=== PATIENT | male | born 1945 | race Hispanic/Latino ===

== ENCOUNTER 2017-11-11 11:43 | Emergency (ER) | payer OTHER, BC ==
--- NOTE | 2017-11-11 12:38 | RAD REPORT ---
EXAM DESCRIPTION: CT - Head Brain Wo Cont - 11/11/2017 12:30 pm CLINICAL HISTORY: Altered consciousness, abnormal gait, hallucinations. COMPARISON: None. TECHNIQUE: All CT scans are performed using dose optimization technique as appropriate and may inclu de automated exposure control or mA/KV adjustment according to patient size. FINDINGS: No intracranial hemorrhage, hydrocephalus or extra-axial fluid collection.No areas of brai n edema or evidence of midline shift. The paranasal sinuses and mastoids are clear. The calvarium is intact. IMPRESSION: No acute intracranial abnormality.
--- NOTE | 2017-11-11 12:59 | RAD REPORT ---
EXAM DESCRIPTION: RAD - Chest Single View - 11/11/2017 12:52 pm CLINICAL HISTORY: Diabetes, hypertension, CHF COMPARISON: 06/07/2017 FINDINGS: Portable technique limits examination quality. The lungs are grossly clear. Moderate cardiomegaly is noted. No displaced fractures.Aortic atheroscle rosis. IMPRESSION: Mild to moderate cardiomegaly.
--- NOTE | 2017-11-11 13:36 | ER ---
Nurse's Notes [facility] Name: Guzman Mayers Age: 72 yrs Sex: Male : 1945 Arrival Date: 11/11/2017 Time: 11:48 Bed 19 Private MD: Diagnosis: Adverse effect of antiviral drugs Presentation: 11/11 11:50 Presenting complaint: EMS states: from dialysis center, pt was complaining of abnormal hj gait, confusion and hallucination, per pt, he started taking Valtrex that causes him to see small people crawling on his arms, he also was started with gabapentin; BP- 180/110; negative for strike symptoms; BGL- 203;. Transition of care: patient was not received from another setting of care. Onset of symptoms was November 11, 2017. Risk Assessment: Do you want to hurt yourself or someone else? Patient reports no desire to harm self or others. Initial Sepsis Screen: Does the patient meet any 2 criteria? Altered Mental Status. Does the patient have a suspected source of infection? No. Patient's initial sepsis screen is negative. Care prior to arrival: None. 11:50 Method Of Arrival: EMS: [facility] 11:50 Acuity: CHICHO 3 hj Triage Assessment: 12:00 General: Appears in no apparent distress. uncomfortable, Behavior is calm, cooperative, hj appropriate for age. Pain: Complains of pain in skin of chest and back (shingles). EENT: No signs and/or symptoms were reported regarding the EENT system. Neuro: Level of Consciousness is awake, alert, obeys commands, Oriented to person, place, time, situation, Appropriate for age. Cardiovascular: Reports Denies chest pain, Capillary refill < 3 seconds Patient's skin is warm and dry. Respiratory: Airway is patent Respiratory effort is even, unlabored, Respiratory pattern is regular, symmetrical. GI: No signs and/or symptoms were reported involving the gastrointestinal system. : No signs and/or symptoms were reported regarding the genitourinary system. Derm: No signs and/or symptoms reported regarding the dermatologic system. Musculoskeletal: No signs and/or symptoms reported regarding the musculoskeletal system. Historical: - Allergies: 12:00 Codeine; hj - Home Meds: 12:00 aspirin 81 mg Oral chew 1 tab once daily [Active]; atorvastatin 40 mg Oral tab 1 tab hj once daily [Active]; bumetanide 2 mg Oral tab 2 tab once daily [Active]; carvedilol 25 mg Oral tab 1 tab 2 times per day [Active]; cefuroxime axetil 250 mg Oral tab 1 tab 2 times per day [Active]; Centrum Silver 400-250 mcg Oral chew daily [Active]; ferrous sulfate 325 mg (65 mg iron) Oral TbEC three times a day [Active]; glipizide 5 mg Oral tab 1 tab once daily [Active]; hydralazine 100 mg Oral tab 1 tab 2 times per day [Active]; isosorbide mononitrate 30 mg Oral Tb24 1 tab once daily [Active]; Lantus 100 unit/mL Sub-Q soln 80 unit daily [Active]; metolazone 2.5 mg Oral tab 1 tab once daily [Active]; montelukast 10 mg Oral tab 1 tab once daily [Active]; PreserVision AREDS 14,320-226-200 [id number]-[id number]-anos Oral cap [Active]; spironolactone 25 mg Oral tab 1 tab once daily [Active]; gabapentin oral oral [Active]; Valtrex Oral [Active]; - PMHx: 12:00 CHF; CKD; Diabetes - IDDM; Dialysis; High Cholesterol; HTN; Hypertension; hj - PSHx: 12:00 [facility] dialysis access; hj - Immunization history:: Adult Immunizations up to date. - Social history:: Smoking status: Patient/guardian denies using tobacco, Patient/guardian denies using alcohol. - Ebola Screening: : Patient negative for fever greater than or equal to 101.5 degrees Fahrenheit, and additional compatible Ebola Virus Disease symptoms Patient denies exposure to infectious person Patient denies travel to an Ebola-affected area in the 21 days before illness onset. Screenin:02 Abuse screen: Denies threats or abuse. Denies injuries from another. Nutritional hj screening: No deficits noted. Tuberculosis screening: No symptoms or risk factors identified. Fall Risk Secondary diagnosis (15 points). Assessment: 12:04 Reassessment: see triage assessment;. hj 13:14 Reassessment: Patient and/or family updated on plan of care and expected duration. Pain hj level reassessed. Patient is alert, oriented x 3, equal unlabored respirations, skin warm/dry/pink. Patient states feeling better. 14:27 Reassessment: Patient and/or family updated on plan of care and expected duration. Pain hj level reassessed. Patient is alert, oriented x 3, equal unlabored respirations, skin warm/dry/pink. taxi service called for pt transport to dialysis center; ETA 30 mins;. Vital Signs: 12:02 BP 189 / 77; Pulse 77; Resp 18; Temp 98.1(TE); Pulse Ox 98% on R/A; Weight 94.8 kg; hj Height 5 ft. 10 in. (177.80 cm); Pain 0/10; 13:14 BP 175 / 80; Pulse 75; Resp 18; Pulse Ox 100% on R/A; hj 12:02 Body Mass Index 29.99 (94.80 kg, 177.80 cm) hj ED Course: 11:48 Patient arrived in ED. hj 11:52 Triage completed. hj 11:54 Page Trujillo FNP-C [facility]. snw 11:[address] MD is Attending Physician. snw 12:01 Arm band placed on left wrist. hj 12:02 Patient has correct armband on for positive identification. Bed in low position. Call hj light in reach. Side rails up X2. 12:05 Jimmie Germain, GILSON is Primary Nurse. hj 12:30 CT Head Brain wo Cont In Process Unspecified. EDMS 12:38 EKG done, by senior technical specialist. reviewed by Page ARECHIGA. at1 12:51 X-ray completed. Portable x-ray completed in exam room. Patient tolerated procedure jb2 well. 12:52 Chest Single View XRAY In Process Unspecified. EDMS 13:31 Eliecer Brandon MD is Referral Physician. snw 14:42 No provider procedures requiring assistance completed. Patient did not have IV access hj during this emergency room visit. Administered Medications: No medications were administered Outcome: 13:35 Discharge ordered by . snw 14:42 Discharged to home ambulatory. hj 14:42 Condition: stable 14:42 Discharge instructions given to patient, Instructed on discharge instructions, follow up and referral plans. Demonstrated understanding of instructions, follow-up care. 14:43 Patient left the ED. hj Signatures: Dispatcher [employer] EDMS Page Trujillo FNP-C FNP-Csnw Orlando Dominguez jb2 Juana willis, academic program specialist EKG Tat1 Jimmie Germain, RN RN hj
--- NOTE | 2017-11-11 13:36 | EDPHYS ---
Physician Documentation [facility] Name: Guzman Mayers Age: 72 yrs Sex: Male : 1945 Arrival Date: 11/11/2017 Time: 11:48 Bed 19 Private MD: ED Physician Hero Lane HPI: 11/11 12:32 This 72 yrs old Male presents to ER via EMS with complaints of abnormal gait, snw confusion, hallucination. 12:32 Onset: The symptoms/episode began/occurred suddenly. Associated signs and symptoms: snw Pertinent positives: fatigue, lightheadedness. Modifying factors: The patient symptoms are alleviated by nothing. The patient has not experienced similar symptoms in the past. The patient has been recently seen by a physician: the patient's primary care provider, with different complaint(s), and apparently was diagnosed with Shingles - pt rx with Valtrex and Gabapentin. Pt states he started having visual hallucinations, tried to dc Gabapentin. Took Valtrex eight hours later and saw "little bitty people" again. Historical: - Allergies: 12:00 Codeine; hj - Home Meds: 12:00 aspirin 81 mg Oral chew 1 tab once daily [Active]; atorvastatin 40 mg Oral tab 1 tab hj once daily [Active]; bumetanide 2 mg Oral tab 2 tab once daily [Active]; carvedilol 25 mg Oral tab 1 tab 2 times per day [Active]; cefuroxime axetil 250 mg Oral tab 1 tab 2 times per day [Active]; Centrum Silver 400-250 mcg Oral chew daily [Active]; ferrous sulfate 325 mg (65 mg iron) Oral TbEC three times a day [Active]; glipizide 5 mg Oral tab 1 tab once daily [Active]; hydralazine 100 mg Oral tab 1 tab 2 times per day [Active]; isosorbide mononitrate 30 mg Oral Tb24 1 tab once daily [Active]; Lantus 100 unit/mL Sub-Q soln 80 unit daily [Active]; metolazone 2.5 mg Oral tab 1 tab once daily [Active]; montelukast 10 mg Oral tab 1 tab once daily [Active]; PreserVision AREDS 14,320-226-200 exjx-wu-ugps Oral cap [Active]; spironolactone 25 mg Oral tab 1 tab once daily [Active]; gabapentin oral oral [Active]; Valtrex Oral [Active]; - PMHx: 12:00 CHF; CKD; Diabetes - IDDM; Dialysis; High Cholesterol; HTN; Hypertension; hj - PSHx: 12:00 [facility] dialysis access; hj - Immunization history:: Adult Immunizations up to date. - Social history:: Smoking status: Patient/guardian denies using tobacco, Patient/guardian denies using alcohol. - Ebola Screening: : Patient negative for fever greater than or equal to 101.5 degrees Fahrenheit, and additional compatible Ebola Virus Disease symptoms Patient denies exposure to infectious person Patient denies travel to an Ebola-affected area in the 21 days before illness onset. ROS: 12:31 Constitutional: Negative for fever, chills, and weight loss, Eyes: Negative for injury, snw pain, redness, and discharge, ENT: Negative for injury, pain, and discharge, Neck: Negative for injury, pain, and swelling, Cardiovascular: Negative for chest pain, palpitations, and edema, Respiratory: Negative for shortness of breath, cough, wheezing, and pleuritic chest pain, Abdomen/GI: Negative for abdominal pain, nausea, vomiting, diarrhea, and constipation, Back: Negative for injury and pain, : Negative for injury, bleeding, discharge, and swelling, MS/Extremity: Negative for injury and deformity, Skin: Negative for injury, rash, and discoloration. 12:31 Neuro: Positive for visual hallucinations, lightheadedness. Exam: 12:31 Constitutional: This is a well developed, well nourished patient who is awake, alert, snw and in no acute distress. Head/Face: Normocephalic, atraumatic. Eyes: Pupils equal round and reactive to light, extra-ocular motions intact. Lids and lashes normal. Conjunctiva and sclera are non-icteric and not injected. Cornea within normal limits. Periorbital areas with no swelling, redness, or edema. Neck: Trachea midline, no thyromegaly or masses palpated, and no cervical lymphadenopathy. Supple, full range of motion without nuchal rigidity, or vertebral point tenderness. No Meningismus. Chest/axilla: Normal chest wall appearance and motion. Nontender with no deformity. No lesions are appreciated. Cardiovascular: Regular rate and rhythm with a normal S1 and S2. No gallops, murmurs, or rubs. Normal PMI, no JVD. No pulse deficits. Respiratory: Lungs have equal breath sounds bilaterally, clear to auscultation and percussion. No rales, rhonchi or wheezes noted. No increased work of breathing, no retractions or nasal flaring. Abdomen/GI: Soft, non-tender, with normal bowel sounds. No distension or tympany. No guarding or rebound. No evidence of tenderness throughout. Back: No spinal tenderness. No costovertebral tenderness. Full range of motion. Skin: Warm, dry with normal turgor. Normal color with no rashes, no lesions, and no evidence of cellulitis. MS/ Extremity: Pulses equal, no cyanosis. Neurovascular intact. Full, normal range of motion. Neuro: Awake and alert, GCS 15, oriented to person, place, time, and situation. Cranial nerves II-XII grossly intact. Motor strength 5/5 in all extremities. Sensory grossly intact. Cerebellar exam normal. Normal gait. Psych: Awake, alert, with orientation to person, place and time. Behavior, mood, and affect are within normal limits. 12:31 ENT: External ear(s): are unremarkable, Ear canal(s): are normal, Nose: Nasal mucosa: edematous, Mouth: is normal, Posterior pharynx: is normal. Vital Signs: 12:02 BP 189 / 77; Pulse 77; Resp 18; Temp 98.1(TE); Pulse Ox 98% on R/A; Weight 94.8 kg; Height 5 ft. 10 in. (177.80 cm); Pain 0/10; 13:14 BP 175 / 80; Pulse 75; Resp 18; Pulse Ox 100% on R/A; hj 12:02 Body Mass Index 29.99 (94.80 kg, 177.80 cm) MDM: 11:54 Patient medically screened. snw 13:37 Data reviewed: vital signs, nurses notes, radiologic studies, CT scan. Counseling: I snw had a detailed discussion with the patient and/or guardian regarding: the historical points, exam findings, and any diagnostic results supporting the discharge/admit diagnosis, the presence of at least one elevated blood pressure reading (>120/80) during this emergency department visit, radiology results, the need for outpatient follow up, to return to the emergency department if symptoms worsen or persist or if there are any questions or concerns that arise at home. Physician consultation: Eliecer Brandon MD was called at 13:00, was contacted at 13:00, regarding consult, patient's condition, outpatient follow-up, in 2-3 days, Stop valtrex and gabapentin and f/u in office. 11/11 12:12 Order name: CT Head Brain wo Cont; Complete Time: 12:44 snw 11/11 12:14 Order name: Chest Single View XRAY; Complete Time: 13:19 snw 11/11 12:14 Order name: EKG; Complete Time: 12:14 snw 11/11 12:14 Order name: EKG - Nurse/Tech; Complete Time: 12:50 snw 11/11 13:41 Order name: Misc. Order: Please ambulate with pt around hallway; Complete Time: 13:49 snw Administered Medications: No medications were administered Disposition: 17:07 Co-signature as Attending Physician, Hero Lane MD. rn Disposition: 11/11/17 13:35 Discharged to Home. Impression: Adverse effect of antiviral drugs. - Condition is Stable. - Discharge Instructions: Hypertension, Shingles. - Medication Reconciliation Form, Thank You Letter, Antibiotic Education, Prescription Opioid Use form. - Follow up: Eliecer Brandon MD; When: 1 - 2 days; Reason: Recheck today's complaints, Continuance of care, Re-evaluation by your physician. - Notes: Please stop Gabapentin and Valcyclovir Signatures: Dispatcher [employer] EDRI Page Trujillo, CABLE MAKER-C CABLE MAKER-Csnw Hero Lane MD MD rn Joaquin, Henry, RN RN hj Corrections: (The following items were deleted from the chart) 14:43 13:35 11/11/2017 13:35 Discharged to Home. Impression: Adverse effect of antiviral hj drugs. Condition is Stable. Forms are Medication Reconciliation Form, Thank You Letter, Antibiotic Education, Prescription Opioid Use. Follow up: Eliecer Brandon; When: 1 - 2 days; Reason: Recheck today's complaints, Continuance of care, Re-evaluation by your physician. snw
[2017-11-11 14:49] VITALS: TEMP 98.1
[2017-11-11 14:50] VITALS: BP 175/80; O2SAT 100
--- NOTE | 2017-11-12 06:20 | EKG ---
Test Date: 2017-11-11 Test Time: 12:36:08 Specialties Operator: ZEFERINO MEASUREMENT RESULTS: Intervals: Rate: 68 CA: 194 QRSD: 162 QT: 450 QTc: 478 [place]: P: 68 CA: 194 QRS: -63 T: 12 INTERPRETIVE STATEMENTS: Normal sinus rhythm Left axis deviation Right bundle branch block Abnormal ECG Compared to ECG 06/07/2017 13:59:12 no significant change from previous ECG Electronically Signed On 11-12-17 06:20:12 CDT by Gilberto Albrecht
== END 2017-11-11 14:43 | disposition home or self-care (01) ==
LOC: ER 11:43
DX: R41.0 Disorientation, unspecified (principal); T37.5X5A Adverse effect of antiviral drugs, initial encounter; Y92.019 Unspecified place in single-family (private) house as the place of occurrence of the external cause; Z88.5 Allergy status to narcotic agent; I13.2 Hypertensive heart and chronic kidney disease with heart failure and with stage 5 chronic kidney disease, or end stage renal disease; E11.22 Type 2 diabetes mellitus with diabetic chronic kidney disease; N18.6 End stage renal disease; I50.9 Heart failure, unspecified; Z99.2 Dependence on renal dialysis; Z79.4 Long term (current) use of insulin; E78.00 Pure hypercholesterolemia, unspecified
CPT/HCPCS: 70450; 71045; 93005; 99283

== ENCOUNTER 2017-11-11 18:12 | Observation (INO) | payer OTHER, BC ==
--- NOTE | 2017-11-11 19:14 | RAD REPORT ---
EXAM DESCRIPTION: CT - Head Brain Wo Cont - 11/11/2017 7:01 pm CLINICAL HISTORY: Syncope COMPARISON: November 11, 2017 TECHNIQUE: Computed axial tomography of the head was obtained. IV contrast was not requested. All CT scans are performed using dose optimization technique as appropriate and may include automated exposure control or mA/KV adjustment according to patient size. FINDINGS: An intracranial bleed is not seen . The ventricles are normal in caliber. No extra-axial fluid collection is noted. Fluid within the sinuses/ mastoids is not seen. IMPRESSION: No acute intracranial abnormality is seen. If patient's symptoms persist MRI of the bra in would be recommended.
--- NOTE | 2017-11-11 19:15 | RAD REPORT ---
EXAM DESCRIPTION: Tony Single View11/11/2017 7:08 pm CLINICAL HISTORY: Abdominal pain COMPARISON: May 2017 FINDINGS: The lungs appear clear of acute infiltrate. The heart is moderately enlarged IMPRESSION: No acute abnormalities displayed
[2017-11-11 19:59] LABS: Absolute Monocytes 0.6 K/uL (0.1-1.3); Absolute Neutrophil 6.2 K/uL (1.8-8.0); Basophils % 0.5 % (0-1.3); Eosinophils % 1.2 % (0-4.4); Hematocrit 32.7 % (39.6-49.0); Lymphocytes % 12.9 % (15.3-44.8); MCH 35.9 pg (27.0-35.0); MCV 101.4 fL (80-100); MPV 7.5 fL (7.6-11.3); Monocytes % 7.9 % (3.3-12.3); RBC Red Blood Cell Count 3.22 M/uL (4.33-5.43)
[2017-11-11] MEDS ORDERED: HYDRALAZINE HCL 20 MG/ML VIAL ONE (20:02)
[2017-11-11 20:21] LABS: Albumin 4.1 g/dL (3.2-5.5); Bilirubin Direct 0.1 mg/dL (0-0.2); Bilirubin Total 0.4 mg/dL (0.3-1.2); Magnesium 2.3 mg/dL (1.8-2.5); Protein, Total 7.2 g/dL (6.0-8.3)
[2017-11-11 20:23] LABS: CKMB Creatine Kinase MB 9.6 ng/ml (0.3-4.0)
[2017-11-11 20:24] LABS: Protime INR 1.04
[2017-11-11 20:30] LABS: Potassium 5.5 mEq/L (3.6-5.0)
[2017-11-11] MEDS ORDERED: LIDOCAINE 1% MPF 5 ML VIAL ONE (20:59)
--- NOTE | 2017-11-11 21:38 | ER ---
Nurse's Notes [facility] Name: Guzman Mayers Age: 72 yrs Sex: Male : 1945 Arrival Date: 11/11/2017 Time: 18:19 Bed 18 Private MD: Diagnosis: Altered mental status, unspecified;Syncope and collapse;Hyperkalemia Presentation: 11/11 18:19 Presenting complaint: EMS states: was picked up from dialysis for syncopal episode 2 hj hours after dialysis, SBP was on the 90's; BP- 205/87; HR-72; 99% RA; A\T\Ox4;. Transition of care: patient was not received from another setting of care. Onset of symptoms was November 11, 2017. Risk Assessment: Do you want to hurt yourself or someone else? Patient reports no desire to harm self or others. Initial Sepsis Screen: Does the patient meet any 2 criteria? No. Patient's initial sepsis screen is negative. Does the patient have a suspected source of infection? No. Patient's initial sepsis screen is negative. Care prior to arrival: None. 18:19 Method Of Arrival: Ambulatory 18:19 Acuity: CHICHO 3 hj Triage Assessment: 18:25 General: Appears in no apparent distress. uncomfortable, Behavior is calm, cooperative, hj appropriate for age. Pain: Denies pain. EENT: No signs and/or symptoms were reported regarding the EENT system. Neuro: Level of Consciousness is awake, alert, obeys commands, Oriented to person, place, time, situation, Appropriate for age Reports. Cardiovascular: Capillary refill < 3 seconds Patient's skin is warm and dry. Respiratory: Airway is patent Respiratory effort is even, unlabored, Respiratory pattern is regular, symmetrical. GI: No signs and/or symptoms were reported involving the gastrointestinal system. : No signs and/or symptoms were reported regarding the genitourinary system. Derm: No signs and/or symptoms reported regarding the dermatologic system. Musculoskeletal: No signs and/or symptoms reported regarding the musculoskeletal system. Historical: - Allergies: 18:24 Codeine; hj - Home Meds: 18:24 aspirin 81 mg Oral chew 1 tab once daily [Active]; atorvastatin 40 mg Oral tab 1 tab hj once daily [Active]; bumetanide 2 mg Oral tab 2 tab once daily [Active]; carvedilol 25 mg Oral tab 1 tab 2 times per day [Active]; cefuroxime axetil 250 mg Oral tab 1 tab 2 times per day [Active]; Centrum Silver 400-250 mcg Oral chew daily [Active]; ferrous sulfate 325 mg (65 mg iron) Oral TbEC three times a day [Active]; gabapentin Oral [Active]; glipizide 5 mg Oral tab 1 tab once daily [Active]; hydralazine 100 mg Oral tab 1 tab 2 times per day [Active]; isosorbide mononitrate 30 mg Oral Tb24 1 tab once daily [Active]; Lantus 100 unit/mL Sub-Q soln 80 unit daily [Active]; metolazone 2.5 mg Oral tab 1 tab once daily [Active]; montelukast 10 mg Oral tab 1 tab once daily [Active]; PreserVision AREDS [id number] [id number] Oral cap [Active]; spironolactone 25 mg Oral tab 1 tab once daily [Active]; Valtrex Oral [Active]; - PMHx: 18:24 CHF; CKD; Diabetes - IDDM; Dialysis; High Cholesterol; HTN; Hypertension; ADD/ADHD; hj - Immunization history:: Adult Immunizations up to date. - Social history:: Smoking status: Patient/guardian denies using tobacco, Patient/guardian denies using alcohol. - Ebola Screening: : Patient negative for fever greater than or equal to 101.5 degrees Fahrenheit, and additional compatible Ebola Virus Disease symptoms Patient denies exposure to infectious person Patient denies travel to an Ebola-affected area in the 21 days before illness onset. Screenin:24 Abuse screen: Denies threats or abuse. Denies injuries from another. Nutritional hj screening: No deficits noted. Tuberculosis screening: Fall Risk None identified. Assessment: 18:27 Cardiovascular: Rhythm is regular. hj 19:15 General: Appears in no apparent distress. uncomfortable, Behavior is calm, cooperative. jd3 19:15 Pain: Denies pain. Neuro: Level of Consciousness is awake, alert, obeys commands, jd3 Oriented to person, place, time, situation. Cardiovascular: Heart tones S1 S2 present Capillary refill < 3 seconds Patient's skin is warm and dry. Respiratory: Airway is patent Respiratory effort is even, unlabored, Respiratory pattern is regular, symmetrical, Breath sounds are clear bilaterally. GI: Abdomen is round Bowel sounds present X 4 quads. Abd is soft and non tender X 4 quads. : No signs and/or symptoms were reported regarding the genitourinary system. EENT: No signs and/or symptoms were reported regarding the EENT system. Derm: Skin is intact, Skin is dry, Skin is normal, Skin temperature is warm. Musculoskeletal: Circulation, motion, and sensation intact. Range of motion: intact in all extremities. 20:00 Reassessment: Patient appears in no apparent distress at this time. No changes from jd3 previously documented assessment. Patient and/or family updated on plan of care and expected duration. Pain level reassessed. Patient is alert, oriented x 3, equal unlabored respirations, skin warm/dry/pink. 21:00 Reassessment: Patient appears in no apparent distress at this time. Patient and/or jd3 family updated on plan of care and expected duration. Pain level reassessed. Patient is alert, oriented x 3, equal unlabored respirations, skin warm/dry/pink. 22:00 Reassessment: Patient appears in no apparent distress at this time. Patient and/or jd3 family updated on plan of care and expected duration. Pain level reassessed. Patient is alert, oriented x 3, equal unlabored respirations, skin warm/dry/pink. 23:00 Reassessment: Patient appears in no apparent distress at this time. No changes from jd3 previously documented assessment. Patient and/or family updated on plan of care and expected duration. Pain level reassessed. Patient is alert, oriented x 3, equal unlabored respirations, skin warm/dry/pink. 23:50 Reassessment: Patient appears in no apparent distress at this time. No changes from jd3 previously documented assessment. Patient and/or family updated on plan of care and expected duration. Pain level reassessed. Patient is alert, oriented x 3, equal unlabored respirations, skin warm/dry/pink. Vital Signs: 18:26 BP 189 / 96; Pulse 75; Resp 18; Temp 98.0(TE); Pulse Ox 98% ; Weight 81.65 kg; Height 5 hj ft. 10 in. (177.80 cm); Pain 0/10; 20:16 BP 176 / 88; Pulse 81; Resp 18 S; Pulse Ox 98% on R/A; Pain 0/10; jd3 22:22 BP 181 / 84; Pulse 74; Resp 17 S; Pulse Ox 100% on R/A; Pain 0/10; jd3 23:53 BP 148 / 81; Pulse 82; Resp 18 S; Pulse Ox 97% on R/A; Pain 0/10; jd3 18:26 Body Mass Index 25.83 (81.65 kg, 177.80 cm) ED Course: 18:19 Patient arrived in ED. hj 18:21 Anderson Feldman PA is PHCP. cp 18:21 Hero Lnae MD is Attending Physician. cp 18:21 Anderson Mitchell MD is Attending Physician. cp 18:21 Triage completed. hj 18:25 Arm band placed on right wrist. hj 18:27 Patient has correct armband on for positive identification. Placed in gown. Bed in low hj position. Call light in reach. Side rails up X 1. Adult w/ patient. 18:40 Jimmie Germain RN is Primary Nurse. hj 18:[address] via stretcher. vm2 19:00 CT completed. Patient tolerated procedure well. Patient moved back from CT. vm2 19:01 CT Head Brain wo Cont In Process Unspecified. EDMS 19:06 X-ray completed. Portable x-ray completed in exam room. Patient tolerated procedure bb2 well. 19:06 XRAY Chest (1 view) In Process Unspecified. EDMS 19:56 Inserted saline lock: 20 gauge in right forearm, using aseptic technique. Blood jd3 collected. placed by Candy RIGGINS. 21:10 Assist provider with lumbar puncture: Set up LP tray. Performed by Anderson CAMPBELL CSF is jd3 clear. Puncture site dressed with band aid, Procedure was successful. Patient tolerated well. 21:10 Patient admitted, IV remains in place. jd3 21:37 Jay Irby MD is Hospitalizing Provider. cp Administered Medications: 20:05 Drug: hydrALAZINE 10 mg Route: IV; Rate: calculated rate; Site: right forearm; jd3 23:52 Follow up: Response: No adverse reaction; IV Status: Completed infusion jd3 21:35 Drug: Albuterol 2.5 mg Route: Inhalation; jd3 21:55 Drug: Albuterol 2.5 mg Route: Inhalation; jd3 22:15 Drug: D50W 50 ml Route: IVP; Site: right forearm; jd3 23:51 Follow up: Response: No adverse reaction jd3 22:16 Drug: Albuterol 2.5 mg Route: Inhalation; jd3 23:51 Follow up: Response: No adverse reaction jd3 22:20 Drug: Insulin Regular Human 5 units {Co-Signature: bb (Candy Carrizales RN).} Route: IVP; jd3 Site: right forearm; 23:51 Follow up: Response: No adverse reaction jd3 22:53 Drug: Kayexalate 45 grams Route: PO; jd3 23:51 Follow up: Response: No adverse reaction jd3 Point of Care Testing: Blood Glucose: 11/12 00:04 Blood Glucose: 145 mg/dL; jd3 Ranges: Outcome: 11/11 21:38 Decision to Hospitalize by Provider. cp 23:50 Admitted to Med/surg accompanied by tech, via wheelchair, room 211, with chart, Report jtomas called to Marjorie RIGGINS 23:50 Condition: stable 23:50 Instructed on the need for admit, Demonstrated understanding of instructions. 11/12 00:01 Patient left the ED. sandy Signatures: Dispatcher [employer] EDMS Jimmie Germain RN RN hj Page, Corey, PA PA Zully Rangel 2 Jimbo Ha RN RN jd3 Bock, Brittany bb2 Candy Carrizales RN bb Corrections: (The following items were deleted from the chart) 11/11 22:17 22:17 Albuterol 2.5 mg Inhalation sandy delgado 11/12 00:04 11/11 20:19 Blood Glucose: Blood Glucose Meatlya=957 mg/dL. sandy delgado
--- NOTE | 2017-11-11 21:38 | EDPHYS ---
Physician Documentation [facility] Name: Guzman Mayers Age: 72 yrs Sex: Male : 1945 Arrival Date: 11/11/2017 Time: 18:19 Bed 18 Private MD: ANI Physician Anderson Mitchell HPI: 11/11 18:40 This 72 yrs old Male presents to ER via Ambulatory with complaints of Syncope, cp High Blood Pressure. 18:40 The patient has experienced syncope, lost consciousness. Onset: The symptoms/episode cp began/occurred just prior to arrival. Duration: This was a single episode, that lasted an unknown period of time. Context: the episode(s) was witnessed, medical staff at dialysis , occurred while the patient was receiving dialysis after 2 hours. Just prior to the episode the patient experienced unknown symptoms. Associated injury: The patient did not suffer any apparent associated injury. Associated signs and symptoms: Pertinent positives: confusion. Current symptoms: confusion. Historical: - Allergies: 18:24 Codeine; hj - Home Meds: 18:24 aspirin 81 mg Oral chew 1 tab once daily [Active]; atorvastatin 40 mg Oral tab 1 tab hj once daily [Active]; bumetanide 2 mg Oral tab 2 tab once daily [Active]; carvedilol 25 mg Oral tab 1 tab 2 times per day [Active]; cefuroxime axetil 250 mg Oral tab 1 tab 2 times per day [Active]; Centrum Silver 400-250 mcg Oral chew daily [Active]; ferrous sulfate 325 mg (65 mg iron) Oral TbEC three times a day [Active]; gabapentin Oral [Active]; glipizide 5 mg Oral tab 1 tab once daily [Active]; hydralazine 100 mg Oral tab 1 tab 2 times per day [Active]; isosorbide mononitrate 30 mg Oral Tb24 1 tab once daily [Active]; Lantus 100 unit/mL Sub-Q soln 80 unit daily [Active]; metolazone 2.5 mg Oral tab 1 tab once daily [Active]; montelukast 10 mg Oral tab 1 tab once daily [Active]; PreserVision AREDS [id number] [id number] Oral cap [Active]; spironolactone 25 mg Oral tab 1 tab once daily [Active]; Valtrex Oral [Active]; - PMHx: 18:24 CHF; CKD; Diabetes - IDDM; Dialysis; High Cholesterol; HTN; Hypertension; ADD/ADHD; hj - Immunization history:: Adult Immunizations up to date. - Social history:: Smoking status: Patient/guardian denies using tobacco, Patient/guardian denies using alcohol. - Ebola Screening: : Patient negative for fever greater than or equal to 101.5 degrees Fahrenheit, and additional compatible Ebola Virus Disease symptoms Patient denies exposure to infectious person Patient denies travel to an Ebola-affected area in the 21 days before illness onset. ROS: 18:45 Constitutional: Negative for body aches, chills, fever, poor PO intake. cp 18:45 Neuro: Positive for altered mental status, loss of consciousness, syncope. cp 18:45 Unable to obtain ROS due to altered mental status. Exam: 18:50 Constitutional: The patient appears in no acute distress, alert, awake, cp non-diaphoretic, non-toxic, well developed, well nourished, obese. 18:50 Head/Face: Normocephalic, atraumatic. cp 18:50 Eyes: Periorbital structures: appear normal, Pupils: equal, round, and reactive to light and accomodation, Extraocular movements: intact throughout, Conjunctiva: normal, no exudate, no injection, Sclera: no appreciated abnormality, Lids and lashes: appear normal, bilaterally. 18:50 ENT: External ear(s): are unremarkable, Ear canal(s): are normal, clear, TM's: bulging, is not appreciated, bilaterally, dullness, bilaterally, erythema, is not appreciated, bilaterally, Nose: is normal, Mouth: Lips: moist, Oral mucosa: moist, Posterior pharynx: is normal, airway is patent, no erythema, no exudate. 18:50 Neck: C-spine: vertebral tenderness, is not appreciated, crepitus, is not appreciated, ROM/movement: is normal, is supple, without pain, no range of motions limitations, no meningismus, no nuchal rigidity. 18:50 Chest/axilla: Inspection: rash, of the below right breast Palpation: is normal, no crepitus, no tenderness. 18:50 Cardiovascular: Rate: normal, Rhythm: regular, Pulses: Pulses are 2+ in right radial artery and left radial artery. Edema: is not appreciated, JVD: is not appreciated. 18:50 Respiratory: the patient does not display signs of respiratory distress, Respirations: normal, no use of accessory muscles, no retractions, no splinting, no tachypnea, Breath sounds: are clear throughout, no decreased breath sounds, no stridor, no wheezing. 18:50 Abdomen/GI: Inspection: obese Bowel sounds: active, all quadrants, Palpation: abdomen is soft and non-tender, in all quadrants, rebound tenderness, is not appreciated, voluntary guarding, is not appreciated, involuntary guarding, is not appreciated. 18:50 Back: pain, is absent, ROM is normal, vertebral tenderness, is not appreciated, Straight leg raises: of both lower extremities does not illicit pain. 18:50 Musculoskeletal/extremity: Exam is negative for bony tenderness, calf tenderness, deformity, injury. 18:50 Skin: cellulitis, is not appreciated, consistent with zoster, on the right mid chest. 18:50 Neuro: Orientation: to person, place, situation, Not oriented to time, Mentation: able to follow commands, slow to respond, confused, Cerebellar function: Romberg testing is negative, normal finger to nose testing, Motor: moves all fours, strength is normal, Sensation: no obvious gross deficits. Vital Signs: 18:26 BP 189 / 96; Pulse 75; Resp 18; Temp 98.0(TE); Pulse Ox 98% ; Weight 81.65 kg; Height 5 hj ft. 10 in. (177.80 cm); Pain 0/10; 20:16 BP 176 / 88; Pulse 81; Resp 18 S; Pulse Ox 98% on R/A; Pain 0/10; jd3 22:22 BP 181 / 84; Pulse 74; Resp 17 S; Pulse Ox 100% on R/A; Pain 0/10; jd3 23:53 BP 148 / 81; Pulse 82; Resp 18 S; Pulse Ox 97% on R/A; Pain 0/10; jd3 18:26 Body Mass Index 25.83 (81.65 kg, 177.80 cm) Procedures: 21:15 Lumbar Puncture: Patient placed in sitting position. Prepped with Betadine. Draped cp using sterile technique. Collected 6 ml's of clear fluid. Sample sent to lab. Puncture site dressed with band aid, Patient tolerated well. MDM: 18:22 Patient medically screened. 21:30 Data reviewed: vital signs, nurses notes, lab test result(s), EKG, radiologic studies, cp CT scan, plain films. 21:30 Differential Diagnosis: cerebrovascular accident, drug effect, GI bleed, seizure, cp sepsis, vasovagal episode. Counseling: I had a detailed discussion with the patient and/or guardian regarding: the historical points, exam findings, and any diagnostic results supporting the discharge/admit diagnosis, lab results, radiology results, the need for further work-up and treatment in the hospital. Response to treatment: the patient's symptoms have mildly improved after treatment. 21:33 Physician consultation: Jay Irby MD was contacted at 21:33, regarding admission, cp to the telemetry unit. patient's condition, and will see patient in ED, shortly. 11/11 18:36 Order name: Basic Metabolic Panel; Complete Time: 21:30 11/11 18:36 Order name: BNP; Complete Time: 20:33 11/11 20:33 Interpretation: BNP 454; Reviewed. 11/11 18:36 Order name: CBC with Diff; Complete Time: 20:33 11/11 20:34 Interpretation: Normal except: RBC 3.22; HGB 11.6; HCT 32.7; MCV 101.4; MCH 35.9; MPV cp 7.5; MITRA% 77.5; LYM% 12.9. 11/11 18:36 Order name: Ckmb; Complete Time: 21:30 11/11 18:36 Order name: CPK; Complete Time: 21:30 11/11 18:36 Order name: LFT's; Complete Time: 21:30 cp 11/11 18:36 Order name: Magnesium; Complete Time: 21:30 11/11 18:36 Order name: PT-INR; Complete Time: 21:30 11/11 18:36 Order name: Ptt, Activated; Complete Time: 21:30 11/11 18:36 Order name: Troponin (emerg Dept Use Only); Complete Time: 20:33 11/11 18:36 Order name: Blood Culture Adult (2) cp 11/11 18:36 Order name: Procalcitonin; Complete Time: 21:30 cp 11/11 18:36 Order name: Lactate; Complete Time: 20:33 cp /14 19:27 Order name: Spinal Fluid Profile; Complete Time: 22:42 cp 14 18:34 Order name: EKG; Complete Time: 18:34 cp 11/11 18:34 Order name: EKG - Nurse/Tech; Complete Time: 18:51 cp 11/11 18:36 Order name: XRAY Chest (1 view); Complete Time: 19:17 cp 11/11 18:36 Order name: Cardiac monitoring; Complete Time: 18:41 cp 11/11 18:36 Order name: IV Saline Lock; Complete Time: 19:55 cp 11/11 18:46 Order name: CT Head Brain wo Cont; Complete Time: 19:17 cp 11/11 19:17 Interpretation: Report reviewed. 11/11 21:30 Order name: Body Fluid Cell Count; Complete Time: 22:42 EDOR 11/11 21:30 Order name: CSF Culture EDOR 11/11 21:30 Order name: CSF Bacterial Antigens (Tube 1 EDOR 11/11 21:48 Order name: CONS Physician Consult EDOR 11/11 18:36 Order name: Labs collected and sent; Complete Time: 19:55 cp 11/11 18:36 Order name: O2 Per Protocol; Complete Time: 18:41 cp 14 18:36 Order name: O2 Sat Monitoring; Complete Time: 18:41 cp 11/11 19:27 Order name: Lumbar Puncture Setup; Complete Time: 22:16 cp /14 19:27 Order name: Lumbar Puncture Consent; Complete Time: 22:16 cp Administered Medications: 20:05 Drug: hydrALAZINE 10 mg Route: IV; Rate: calculated rate; Site: right forearm; jd3 23:52 Follow up: Response: No adverse reaction; IV Status: Completed infusion jd3 21:35 Drug: Albuterol 2.5 mg Route: Inhalation; jd3 21:55 Drug: Albuterol 2.5 mg Route: Inhalation; jd3 22:15 Drug: D50W 50 ml Route: IVP; Site: right forearm; jd3 23:51 Follow up: Response: No adverse reaction jd3 22:16 Drug: Albuterol 2.5 mg Route: Inhalation; jd3 23:51 Follow up: Response: No adverse reaction jd3 22:20 Drug: Insulin Regular Human 5 units {Co-Signature: bb (Candy Carrizales RN).} Route: IVP; jd3 Site: right forearm; 23:51 Follow up: Response: No adverse reaction jd3 22:53 Drug: Kayexalate 45 grams Route: PO; jd3 23:51 Follow up: Response: No adverse reaction jd3 Point of Care Testing: Blood Glucose: 11/12 00:04 Blood Glucose: 145 mg/dL; jd3 Ranges: Critical Glucose Levels:Adult <50 mg/dl or >400 mg/dl <40 mg/dl or >180 mg/dl Disposition: 00:30 Chart complete. cp 06:05 Co-signature as Attending Physician, Anderson Mitchell MD I agree with the assessment and [facility] plan of care. Disposition: 11/11/17 21:38 Hospitalization ordered by Jay Irby for Observation. Preliminary diagnosis are Altered mental status, unspecified, Syncope and collapse, Hyperkalemia. - Bed requested for Telemetry/MedSurg (observation). - Status is Observation. jd3 - Condition is Stable. - Problem is new. - Symptoms have improved. UTI on Admission? No Signatures: Dispatcher [employer] EDMS Irma Lazo RN RN Anderson Mccormick MD MD cha Joaquin, Henry RN RN Anderson Maguire PA PA cp Davies, Jonathon, RN RN jd3 Brenda Ballard RN bb Corrections: (The following items were deleted from the chart) 11/11 21:42 21:38 Hospitalization Ordered by Jay Irby MD for Observation. Preliminary cp diagnosis is Altered mental status, unspecified; Syncope and collapse. Bed requested for Telemetry/MedSurg (observation). Status is Observation. Condition is Stable. Problem is new. Symptoms have improved. UTI on Admission? No. cp 22:44 21:42 11/11/2017 21:38 Hospitalization Ordered by Jay Irby MD for Observation. pb Preliminary diagnosis is Altered mental status, unspecified; Syncope and collapse; Hyperkalemia. Bed requested for Telemetry/MedSurg (observation). Status is Observation. Condition is Stable. Problem is new. Symptoms have improved. UTI on Admission? No. cp 11/12 00:01 11/11 22:44 11/11/2017 21:38 Hospitalization Ordered by Jay Irby MD for jd3 Observation. Preliminary diagnosis is Altered mental status, unspecified; Syncope and collapse; Hyperkalemia. Bed requested for Telemetry/MedSurg (observation). Status is Observation. Condition is Stable. Problem is new. Symptoms have improved. UTI on Admission? No. kl
[2017-11-11] MEDS ORDERED: ALBUTEROL 2.5 MG/3 ML NEB SOL ONE (21:58)
[2017-11-11] MEDS ORDERED: D50W 25 GM/50 ML SYRINGE IV ONE (21:58)
[2017-11-11] MEDS ORDERED: SOD POLYSTYREN SUL 15 GM/60 ML UCUP ONE (21:58)
[2017-11-11] MEDS ORDERED: INSULIN -REGULAR HUMAN 50 UNIT/0.5 ML ML ONE (21:58)
[2017-11-11 22:14] LABS: CSF Glucose 77 mg/dl (40-70)
[2017-11-11 22:15] LABS: Body Fluid Source CSF; Color of fluid Colorless (COLORLESS); Fluid Total Volume 6.5 ml
[2017-11-11 22:16] LABS: Appearance CLEAR (CLEAR)
[2017-11-11 22:32] LABS: Body Fluid WBC 1 /mm^3
[2017-11-11 22:34] LABS: Appearance CLEAR (CLEAR); Body Fluid Source CSF; Body Fluid WBC 0 /mm^3; Color of fluid Colorless (COLORLESS)
--- NOTE | 2017-11-11 22:56 | P.HP ---
Certification for Inpatient Patient admitted to: Observation With expected LOS: <2 Midnights Practitioner: I am a practitioner with admitting privileges, knowledge of patient current condition, hospital course, and medical plan of care. Services: Services provided to patient in accordance with Admission requirements found in Title 42 Section 412.3 of the Code of Federal Regulations Patient History Date of Service: 11/11/17 Reason for admission: syncope, acute encephalopathy History of Present Illness: Mr Paredes is a 72 years old male with history of COPD, IDDM, HTN, ESRD on HD, who was recently diagnosed with shingles. He start taking Valtrex and Gabapentin 4 days ago. This morning the patient become more confused, and he actually start having visual hallucinations, he was seen little red men going up to his arms. He came to ED early today, was evaluated and discharged home to be followed up by his PCP. However, During HD the patient SBP was in the 90's, which is unusual for him, and then had a syncopal episode. According to his daughter, he become more confused after take Gabapentin. Lab work shows normal WBC count. No fever documented. He had an LP done and results are still pending. CT head shows no acute abnormalities. Allergies codeine Allergy (Verified 11/27/16 08:50) Anaphylaxis Home Medications: Atorvastatin Calcium [Lipitor*] 40 mg PO DAILY 06/27/15 Multivit-Min/FA/Lycopen/Lutein [Centrum Silver Tablet] 1 each PO DAILY 06/28/15 Vit A/Vit C/Vit E/Zinc/Copper [Preservision Areds Softgel] 1 cap PO DAILY glipiZIDE [Glucotrol*] 5 mg PO DAILY 09/10/15 Carvedilol [Coreg*] 12.5 mg PO BID 04/07/16 Ferrous Sulfate 325 mg PO BID 04/07/16 Isosorbide Mononitrate [Isosorbide Mononitrate ER] 30 mg PO DAILY 04/07/16 Pantoprazole [Protonix Tab*] 40 mg PO DAILY #30 tab 04/12/16 Docusate [Colace Cap*] 100 mg PO DAILY 09/02/16 Insulin Glargine,Hum.rec.anlog [Lantus Solostar] 30 units SQ DAILY 09/02/16 Guaif/Dm [Robitussin Dm*] 10 ml PO Q6H PRN #200 milliu 09/05/16 - Past Medical/Surgical History Diabetic: Yes -: Hypertension -: Hyperlipidemia -: Diabetes type 2 -: Electrical 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 moist/pink, EOMI, Sclerae nonicteric Neck: Supple, 2+ carotid pulse no bruit, No LAD, Without JVD or thyroid abnormality Respiratory: Clear to auscultation bilaterally, Normal air movement Cardiovascular: Regular rate/rhythm, Normal S1 S2 Gastrointestinal: Normal bowel sounds, No tenderness Musculoskeletal: No tenderness Integumentary: Skin lesion (crost and vesicular lesion on his right side of the back and flank) Neurological: Normal gait, Normal speech, Normal strength at 5/5 x4 extr, Normal tone, Normal affect Lymphatics: No axilla or inguinal lymphadenopathy - Studies Laboratory Data (last 24 hrs) 11/11/17 19:45: PT 12.3, INR 1.04, APTT 26.4 11/11/17 19:45: WBC 8.0, Hgb 11.6 L, Hct 32.7 L, Plt Count 256 11/11/17 19:45: B-Natriuretic Peptide 454 H 11/11/17 19:45: Sodium 134 L, Potassium 5.5 H, BUN 46 H, Creatinine 7.18 H*, Glucose 145 H, Magnesium 2.3, Total Bilirubin 0.4, AST 15, ALT 15, Alkaline Phosphatase 84 Microbiology Data (last 24 hrs): 11/11/17 21:10 Cerebral Spinal Fluid CSF Bacterial Antigens (Tube 1) - Final Assessment and Plan - Problems (Diagnosis) (1) Shingles Current Visit: Yes Status: Acute (2) Hallucination, visual Current Visit: Yes Status: Acute (3) COPD (chronic obstructive pulmonary disease) Onset Date: 09/09/15 Current Visit: No Status: Acute (4) Diabetes Onset Date: 09/03/16 Current Visit: No Status: Acute Qualifiers: Diabetes mellitus type: type 2 Diabetes mellitus 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 Diabetes mellitus complication status: with kidney complications Diabetes mellitus complication detail: with chronic kidney disease Chronic kidney disease stage: on chronic dialysis Qualified Code(s) : E11.22 - Type 2 diabetes mellitus with diabetic chronic kidney disease; N18.6 - End stage renal disease; 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 This is probably secondary to gabapentin side effect, however, viral encephalitis was considered as differential diagnosis. LP done awaiting spinal fluid analysis report. Will continue with Valtrex, D/C gabapentin, consult Nephrology team for HD orders. Will adjust treatment according laboratory report. - Advance Directives Does patient have a Living Will: Yes Does patient have a Durable POA for Healthcare: No - Code Status/Comfort Care Code Status Assessed: Yes Code Status: Full Code
[2017-11-11] MEDS ORDERED: IPRATROPIUM BROM 0.5MG/2.5ML NEB PRN (23:06)
[2017-11-11] MEDS ORDERED: ACETAMINOPHEN 500 MG TAB PO PRN (23:06)
[2017-11-11] MEDS ORDERED: ALBUTEROL 2.5 MG/3 ML NEB SOL NEB PRN (23:06)
[2017-11-11] MEDS ORDERED: ONDANSETRON 4 MG/2 ML VIAL IV PRN (23:06)
[2017-11-12 01:05] VITALS: BMI 29.3
[2017-11-12 05:45] LABS: Absolute Lymphocytes (CBC) 1.5 K/uL (0.7-4.9); Absolute Monocytes 0.7 K/uL (0.1-1.3); Absolute Neutrophil 5.1 K/uL (1.8-8.0); Basophils % 0.4 % (0-1.3); Eosinophils % 1.3 % (0-4.4); Hematocrit 32.8 % (39.6-49.0); Lymphocytes % 20.3 % (15.3-44.8); MCH 35.6 pg (27.0-35.0); MCV 101.4 fL (80-100); MPV 7.6 fL (7.6-11.3); Monocytes % 9.3 % (3.3-12.3); RBC Red Blood Cell Count 3.23 M/uL (4.33-5.43)
[2017-11-12 05:56] LABS: Potassium 4.5 mEq/L (3.6-5.0)
[2017-11-12] MEDS: INSULIN -REGULAR HUMAN 50 UNIT/0.5 ML ML SQ SCH ×4 (07:30→21:00)
[2017-11-12] MEDS: VALACYCLOVIR 500 MG TAB PO SCH (09:00)
[2017-11-12] MEDS ORDERED: VALACYCLOVIR 500 MG TAB PO SCH (09:00)
[2017-11-12] MEDS: ATORVASTATIN 20 MG TAB PO SCH (09:50)
[2017-11-12] MEDS: ISOSORBIDE MONO SR 30 MG TAB PO SCH (09:50)
[2017-11-12] MEDS: CARVEDILOL 25 MG TAB PO SCH ×2 (09:50→21:01)
[2017-11-12] MEDS: PANTOPRAZOLE 40MG TABLET PO SCH (09:50)
[2017-11-12] MEDS ORDERED: HYDRALAZINE HCL 20 MG/ML VIAL IV ONE (16:30)
--- NOTE | 2017-11-12 20:28 | P.PN ---
Subjective Date of Service: 11/12/17 Chief Complaint: syncope, acute encephalopathy Subjective: No new changes, Tolerating diet, Doing well Review of Systems General: Unremarkable Eyes: Unremarkable ENT: Unremarkable Respiratory: Unremarkable Cardiovascular: Unremarkable Gastrointestinal: Unremarkable Genitourinary: Unremarkable Musculoskeletal: Unremarkable Integumentary: Lesions, As per HPI Neurological: Unremarkable Lymphatics: Unremarkable Physical Examination - Vital Signs Temperature: 97.2 F Blood Pressure: 189/97 Pulse: 81 Respirations: 16 Pulse Ox (%): 96 - Physical Exam General: Alert, In no apparent distress, Oriented x3 HEENT: Atraumatic, Normocephalic, PERRLA Neck: Supple Respiratory: Clear to auscultation bilaterally Cardiovascular: No edema Capillary refill: <2 Seconds Gastrointestinal: Normal bowel sounds Musculoskeletal: No clubbing Integumentary: Skin lesion (vesicles to right flank) Neurological: Normal speech Lymphatics: No axilla or inguinal lymphadenopathy Urinary: Dialysis catheter External genitalia: Deferred Rectal: Deferred - Studies Laboratory Data (last 24 hrs) 11/11/17 19:45: PT 12.3, INR 1.04, APTT 26.4 11/11/17 19:45: B-Natriuretic Peptide 454 H 11/11/17 19:45: Sodium 134 L, Potassium 5.5 H, Creatinine 7.18 H* Microbiology Data (last 24 hrs): 11/11/17 21:10 Cerebral Spinal Fluid Gram Stain - Final 11/11/17 21:10 Cerebral Spinal Fluid CSF Bacterial Antigens (Tube 1) - Final Assessment & Plan - Problems (Diagnosis) (1) Acute encephalopathy Onset Date: 11/12/17 Current Visit: Yes Status: Acute Discharge Plan: Home (Follow up with Dr. Brandon next week) Plan to discharge in: 24 Hours
--- NOTE | 2017-11-13 02:09 | CON ---
Date of Consultation: 11/12/2017 Chief Complaint: End-stage renal disease, accelerated hypertension, altered mental status, syncope. History Of Present Illness: The patient is a 72-year-old man with multiple medical problems including history of COPD, insulin-dependent diabetes mellitus , hypertension, end-stage renal disease, on dialysis. He was recently diagnosed with shingles and he was started on Valtrex and gabapentin 4 days ago. He came to emergency room and he was complaining of confusion, visual hallucination. He came to emergency room and was discharged to home to be followed up with PCP. However, during dialysis, systolic blood pressure was somewhat trending down and the patient had a syncopal episode, was confused after he took gabapentin and was referred to emergency room. Lab work shows normal white count. He denies fever. Neurological workup was started and patient had LP done. CT scan of the head did not show abnormalities. LP results are pending. Review of Systems: Constitutional: The patient remains confused, although he denies complaints. Eyes: Denies new vision changes. Ears, Nose, Mouth, and Throat: Denies sore throat, earache. Respiratory: Denies PND or orthopnea. Cardiovascular: Denies chest pain, palpitation. GI: Denies nausea, vomiting. : Denies dysuria, hematuria. Musculoskeletal: Denies muscle aches or joint swelling. All other systems reviewed and all are negative Past Medical History: Diabetes mellitus, end-stage renal disease, anemia due to CKD, renal osteodystrophy, hypertension, hyperlipidemia, diabetic kidney disease, peripheral neuropathy, retinopathy, congestive heart failure, coronary artery disease, right shoulder surgery, electrical persaud, skin grafting wounds due to electrical persaud. Family History: No kidney disease in the family. Social History: Denies tobacco, alcohol, or illicit drugs. Physical Examination: General: The patient is not in acute distress. Eyes: Anicteric sclerae. EOMI. Ears, Nose, Mouth, and Throat: Oral mucosa moist. No pallor. Neck: Supple. No JVD. No bruits. Lungs: Clear to auscultation bilaterally. Heart: S1-S2. No pericardial friction rub Abdomen: Soft, benign. Normal bowel sounds, no rebound Extremities: Minimal edema. No cellulitis Skin: Vesicular lesion on the right side of the back and flank. Neurological: Moving extremities. Cranial nerves intact. No tremor. Psychiatric: Remains confused answer questions. Laboratory Data: Hemoglobin 11.5, WBC 7.4, platelet count is 270,00. Chemistry showed sodium 143, potassium 4.5, chloride 102, CO2 29, BUN 51, creatinine 8.18, glucose 77, calcium 9.4, troponin 0.09. Impression And Plan: 1. End-stage renal disease. The patient will have dialysis tomorrow. Electrolytes and volemia in acceptable control. 2. Hypertension. Blood pressure is fluctuating. Adjust blood pressure medication and monitor closely blood pressure. 3. Renal osteodystrophy. Continue renal diet as tolerated. Adjust binders. 4. Diabetes mellitus. The patient will continue insulin. 5. Shingles. Adjust medication dosage to renal function EB/MODL Voice ID: [id number] Report ID: [id number] MTDD
[2017-11-13] MEDS: INSULIN -REGULAR HUMAN 50 UNIT/0.5 ML ML SQ SCH ×4 (07:30→21:00)
[2017-11-13] MEDS: ISOSORBIDE MONO SR 30 MG TAB PO SCH (09:15)
[2017-11-13] MEDS: PANTOPRAZOLE 40MG TABLET PO SCH (09:15)
[2017-11-13] MEDS: VALACYCLOVIR 500 MG TAB PO SCH (09:16)
[2017-11-13] MEDS: ATORVASTATIN 20 MG TAB PO SCH (09:16)
[2017-11-13] MEDS: CARVEDILOL 25 MG TAB PO SCH ×2 (09:16→22:10)
--- NOTE | 2017-11-13 11:21 | P.PN ---
Subjective Date of Service: 11/13/17 Chief Complaint: syncope, acute encephalopathy Subjective: Improving (Patient is doing well is a little upset we PE admitted with shingles and encephalopathy lumbar puncture is negative) Review of Systems Unremarkable General: Weakness Physical Examination - Vital Signs Temperature: 97.2 F Blood Pressure: 179/96 Pulse: 72 Respirations: 20 Pulse Ox (%): 95 - Physical Exam General: Alert, Oriented x3 HEENT: Atraumatic Neck: Supple Respiratory: Clear to auscultation bilaterally Cardiovascular: No edema, Normal S1 S2 Gastrointestinal: Normal bowel sounds, Soft and benign Musculoskeletal: No clubbing, No swelling Integumentary: Other (Patient has a shingles rash on the right side) Neurological: Normal gait, Normal speech, Normal strength at 5/5 x4 extr, Cranial nerves 3-12 intact - Studies Microbiology Data (last 24 hrs): 11/11/17 21:10 Cerebral Spinal Fluid Gram Stain - Final 11/11/17 21:10 Cerebral Spinal Fluid CSF Bacterial Antigens (Tube 1) - Final Assessment & Plan - Problems (Diagnosis) (1) Acute encephalopathy Onset Date: 11/12/17 Current Visit: Yes Status: Acute Plan: Patient is 72 years of age admitted with acute change in mental status slurred speech no evidence of an obvious stroke he is able to stand up no obvious weakness of his extremities will ambulate possible side effect of gabapentin returns recently prescribed according to his daughter for a shingles appointed his negative microbiology screen on is LP fluid is negative vital signs is stable possible discharge tomorrow most likely has side effect a gabapentin Discharge Plan: Home Plan to discharge in: 24 Hours
[2017-11-13 12:37] LABS: Urine Appearance CLEAR; Urine Bilirubin NEGATIVE (NEG); Urine Blood TRACE (NEG); Urine Color YELLOW; Urine Glucose TRACE (NEG); Urine Protein 2+ (NEG); Urine Urobilinogen 0.2 mg/dL (0.2-1.0); Urine pH 7.5 (5.0-7.0)
[2017-11-13 12:42] LABS: Urine Microscopic Reflex ORDER UMIC
[2017-11-13 12:58] LABS: Urine Bacteria <20 /HPF (NONE SEEN); Urine Culture Reflex Order NOT NEEDED; Urine RBC <5 /HPF (NONE SEEN)
--- NOTE | 2017-11-13 22:13 | PN ---
Date of Progress Note: 11/13/2017 Chief Complaint: End-stage renal disease, on dialysis. History Of Present Illness: The patient presented to the hospital because of severe altered mental status. He developed syncope. He underwent lumbar puncture to evaluate for possible causes of encephalopathy. He was admitted with shingles. Review of Systems: Denies fever or chills. Denies headaches. Physical Examination: Lungs: Clear to auscultation bilaterally. Heart: S1, S2. Abdomen: Soft, benign, nontender. Extremities: No edema. Impression: 1. Acute encephalopathy. Workup is pending for meningitis. He underwent lumbar puncture. He was admitted with altered mental status. There is no evidence of acute cerebrovascular accident. Possible encephalopathy due to medication. He was previously treated with gabapentin. 2. End-stage renal disease. Dialysis is done with ultrafiltration to control fluid overload and provide metabolic clearance. Electrolytes in stable ranges. 3. Anemia in chronic kidney disease. Monitor hemoglobin level and adjust LUANNE. At this point, the patient does not require LUANNE. 4. Renal osteodystrophy. Continue renal diet and binders. 5. Diabetes mellitus. Continue insulin. CHRISTINA/BILLY Voice ID: [id number] Report ID: [id number] MANJINDER
[2017-11-14 04:56] VITALS: O2SAT 96
[2017-11-14] MEDS: INSULIN -REGULAR HUMAN 50 UNIT/0.5 ML ML SQ SCH ×2 (07:30→11:30)
[2017-11-14] MEDS: CARVEDILOL 25 MG TAB PO SCH (09:08)
[2017-11-14] MEDS: VALACYCLOVIR 500 MG TAB PO SCH (09:08)
[2017-11-14] MEDS: ATORVASTATIN 20 MG TAB PO SCH (09:10)
[2017-11-14] MEDS: ISOSORBIDE MONO SR 30 MG TAB PO SCH (09:10)
[2017-11-14] MEDS: PANTOPRAZOLE 40MG TABLET PO SCH (09:10)
[2017-11-14 09:11] VITALS: BP 146/70
[2017-11-14 09:39] VITALS: TEMP 98.2
--- NOTE | 2017-11-14 10:46 | P.DS ---
Admission Date: 11/11/17 Discharge Date: 11/14/17 Disposition: ROUTINE DISCHARGE Discharge Condition: FAIR Reason for Admission: syncope, acute encephalopathy Consultations: Nephrology - Problems (1) Acute encephalopathy Onset Date: 11/12/17 Current Visit: Yes Status: Acute Brief History of Present Illness: Patient is 72 years of age recently developed shingles was prescribed gabapentin developed altered mental status and was admitted to the hospital Hospital Course: Patient did well probably side effect of gabapentin no evidence of a stroke at the time of discharge patient was doing well alert oriented responsive cooperative speech and comprehension satisfactory no obvious neurological weakness of extremities was no evidence of stroke patient was instruct instructed to stop is gabapentin Valtrex prescribed for another 5 days At the time of discharge alert oriented responsive cooperative vital signs all stable chest clear cardiovascular muscles normal abdomen is soft the labs closely normal no weakness of his extremities patient ambulating Vital Signs/Physical Exam: Temp Pulse Resp BP Pulse Ox 98.2 F 86 18 146/70 H 97 11/14/17 08:00 11/14/17 09:08 11/14/17 08:00 11/14/17 09:08 11/14/17 08:00 Laboratory Data at Discharge: WBC 7.4 K/uL (4.3-10.9) 11/12/17 04:38 Hgb 11.5 g/dL (13.6-17.9) L 11/12/17 04:38 Hct 32.8 % (39.6-49.0) L 11/12/17 04:38 Plt Count 270 K/uL (152-406) 11/12/17 04:38 PT 12.3 SECONDS (9.5-12.5) 11/11/17 19:45 INR 1.04 11/11/17 19:45 APTT 26.4 SECONDS (24.3-36.9) 11/11/17 19:45 Sodium 143 mEq/L (135-145) 11/12/17 04:38 Potassium 4.5 mEq/L (3.6-5.0) 11/12/17 04:38 BUN 51 mg/dL (6-20) H 11/12/17 04:38 Creatinine 8.18 mg/dL (0.61-1.24) H* D 11/12/17 04:38 Glucose 77 mg/dL (65-120) 11/12/17 04:38 Magnesium 2.3 mg/dL (1.8-2.5) 11/11/17 19:45 Total Bilirubin 0.4 mg/dL (0.3-1.2) 11/11/17 19:45 AST 15 IU/L (10-42) 11/11/17 19:45 ALT 15 IU/L (10-60) 11/11/17 19:45 Alkaline Phosphatase 84 IU/L (42-121) 11/11/17 19:45 B-Natriuretic Peptide 454 pg/ml (<=100) H 11/11/17 19:45 Home Medications: Atorvastatin Calcium [Lipitor*] 40 mg PO DAILY 06/27/15 Multivit-Min/FA/Lycopen/Lutein [Centrum Silver Tablet] 1 each PO DAILY 06/28/15 Vit A/Vit C/Vit E/Zinc/Copper [Preservision Areds Softgel] 1 cap PO BID glipiZIDE [Glucotrol*] 5 mg PO DAILY 09/10/15 Carvedilol [Coreg*] 12.5 mg PO BID 04/07/16 Isosorbide Mononitrate [Isosorbide Mononitrate ER] 30 mg PO DAILY 04/07/16 Pantoprazole [Protonix Tab*] 40 mg PO DAILY #30 tab 04/12/16 Docusate [Colace Cap*] 100 mg PO DAILY 09/02/16 Amlodipine [Norvasc*] 10 mg PO DAILY 11/14/17 Guaifenesin [Mucinex] 600 mg PO BID 11/14/17 Lactulose 15 ml PO BID 11/14/17 Metoclopramide HCl 5 mg PO BID 11/14/17 Valacyclovir [Valtrex*] 1,000 mg PO DAILY #5 tab 11/14/17 New Medications: Valacyclovir [Valtrex*] 1,000 mg PO DAILY #5 tab Patient Discharge Instructions: Do resume all his home medications Dc gabapentin new medication Valtrex faxed to the pharmacy patient can be discharged after dialysis Diet: Low sodium Activity: Ad inez
[2017-11-16 19:57] LABS: HBsAG Nonreactive (Nonreactive)
== END 2017-11-14 12:22 | disposition home or self-care (01) ==
LOC: ER 18:12 → ERHOLD 21:46 → 2ND 22:50
PROVIDERS: ADMIT Internal Medicine; ATTEND Internal Medicine Sleep Medicine
PROC: 00JU3ZZ Inspection of Spinal Canal, Percutaneous Approach (ICD-10-PCS; principal; 2017-11-11)
PROC: 5A1D70Z Performance of Urinary Filtration, Intermittent, Less than 6 Hours Per Day (ICD-10-PCS; 2017-11-13)
DX: G92 Toxic encephalopathy (principal); T42.6X5A Adverse effect of other antiepileptic and sedative-hypnotic drugs, initial encounter; Y92.019 Unspecified place in single-family (private) house as the place of occurrence of the external cause; J44.9 Chronic obstructive pulmonary disease, unspecified; E11.22 Type 2 diabetes mellitus with diabetic chronic kidney disease; N18.6 End stage renal disease; Z99.2 Dependence on renal dialysis; Z79.4 Long term (current) use of insulin; B02.9 Zoster without complications; Z88.5 Allergy status to narcotic agent; E78.5 Hyperlipidemia, unspecified; I50.9 Heart failure, unspecified; I13.2 Hypertensive heart and chronic kidney disease with heart failure and with stage 5 chronic kidney disease, or end stage renal disease; E11.42 Type 2 diabetes mellitus with diabetic polyneuropathy; E11.319 Type 2 diabetes mellitus with unspecified diabetic retinopathy without macular edema; I25.10 Atherosclerotic heart disease of native coronary artery without angina pectoris; N25.0 Renal osteodystrophy
CPT/HCPCS: 36415; 62270; 70450; 71045; 80048 ×2; 80076; 82550; 82553; 82945; 82962 ×9; 83605; 83735; 83880; 84145; 84157; 84484; 85025 ×2; 85610; 85730; 86403 ×6; 86704; 86706; 86803; 87040 ×2; 87070; 87340; 89050 ×2; 90935; 90970; 96365; 96366; 96375; 99285; G0378 ×2; J0360 ×2; 81003; 81015; 93005; 99283

== ENCOUNTER 2018-05-03 17:20 | Emergency (ER) | payer OTHER, BC ==
[2018-05-03] MEDS ORDERED: METOPROLOL TARTRATE 5 MG/5 ML INJ IV ONE (17:55)
[2018-05-03] MEDS ORDERED: METOPROLOL TAR 25 MG TAB ONE (17:55)
[2018-05-03] MEDS ORDERED: ASPIRIN 81 MG CHEWABLE TABLET ONE (17:55)
--- NOTE | 2018-05-03 18:17 | ER ---
Nurse's Notes [facility] Name: Guzman Mayers Age: 73 yrs Sex: Male : 1945 Arrival Date: 05/03/2018 Time: 17:29 Bed 3 Private MD: Diagnosis: Atrial fibrillation and flutter-new onset;Dyspnea;Chronic obstructive pulmonary disease with (acute) exacerbation;Obesity, unspecified;End stage renal disease;Hypoxemia Presentation: 05/03 17:16 Presenting complaint: EMS states: Pt was finishing HD and started getting hypotensive sv (SBP 70s) and tachycardic at 140s. On EMS arrival, pt was pale, diaphoretic, and lethargic. On O2\\T\\2L per NC by HD nurse, O2 sat was 70% RA, went up to 85-90%., placed on 100% NRB, O2 sat up to 100%. EMS had him bear down and BP would increase. BS-189. Transition of care: HD clinic. Onset of symptoms was May 03, 2018. Care prior to arrival: IV initiated. 20 GA, in the right antecubital area, Glucose check: 189 Oxygen administered. via a non-rebreather mask. 17:16 Method Of Arrival: EMS: [facility] sv 17:16 Acuity: CHICHO 2 sv 18:20 Risk Assessment: Do you want to hurt yourself or someone else? Patient reports no tw2 desire to harm self or others. Initial Sepsis Screen: Does the patient meet any 2 criteria? No. Patient's initial sepsis screen is negative. Does the patient have a suspected source of infection? No. Patient's initial sepsis screen is negative. Historical: - Allergies: 17:33 Codeine; sv - Home Meds: 18:43 aspirin 81 mg Oral chew 1 tab once daily [Active]; atorvastatin 40 mg Oral tab 1 tab tw2 once daily [Active]; bumetanide 2 mg Oral tab 2 tab once daily [Active]; carvedilol 25 mg Oral tab 1 tab 2 times per day [Active]; cefuroxime axetil 250 mg Oral tab 1 tab 2 times per day [Active]; Centrum Silver 400-250 mcg Oral chew daily [Active]; ferrous sulfate 325 mg (65 mg iron) Oral TbEC three times a day [Active]; gabapentin Oral [Active]; glipizide 5 mg Oral tab 1 tab once daily [Active]; hydralazine 100 mg Oral tab 1 tab 2 times per day [Active]; isosorbide mononitrate 30 mg Oral Tb24 1 tab once daily [Active]; Lantus 100 unit/mL Sub-Q soln 80 unit daily [Active]; metolazone 2.5 mg Oral tab 1 tab once daily [Active]; montelukast 10 mg Oral tab 1 tab once daily [Active]; spironolactone 25 mg Oral tab 1 tab once daily [Active]; PreserVision AREDS 14,320-226-200 oaiv-el-ycin Oral cap [Active]; Valtrex Oral [Active]; - PMHx: 17:33 ADD/ADHD; CHF; CKD; Diabetes - IDDM; Dialysis; High Cholesterol; HTN; Hypertension; sv COPD; - Immunization history:: Adult Immunizations. - Social history:: Smoking status: . - Family history:: not pertinent. - Ebola Screening: : Patient denies travel to an Ebola-affected area in the 21 days before illness onset. Screenin:19 Abuse screen: Denies threats or abuse. Nutritional screening: No deficits noted. tw2 Tuberculosis screening: No symptoms or risk factors identified. Fall Risk None identified. Assessment: 17:31 General: Appears in no apparent distress. Behavior is calm, cooperative, appropriate tw2 for age. Pain: Denies pain. Neuro: Level of Consciousness is awake, alert, obeys commands, Oriented to person, place, situation. Cardiovascular: Denies chest pain, shortness of breath, Heart tones S1 S2 Rhythm is sinus tachycardia at 141 HR, dr. mitchell at bedside at this time, pads applied. Cardiovascular: Dialysis shunt: in the left arm, no bleeding noted. Respiratory: Airway is patent Respiratory effort is even, unlabored, Respiratory pattern is regular, symmetrical, Breath sounds are diminished bilaterally. Respiratory: Reports shortness of breath. GI: Abdomen is round distended, Bowel sounds present X 4 quads. : No signs and/or symptoms were reported regarding the genitourinary system. Derm: No signs and/or symptoms reported regarding the dermatologic system. 17:33 Reassessment: respiratory at bedside at this time, for bipap. tw2 18:18 Reassessment: Patient and/or family updated on plan of care and expected duration. Pain tw2 level reassessed. pt states, "im doing better can you take this off", bipap on standby , will continue to monitor pt, vs stable. 18:43 Reassessment: pt states "i am ready to go home right now, tell the doctor i feel tw2 better", pt educated as to the risks of going AMA, provider notified, pts son at bedside at this time. 19:09 Reassessment: dr. mitchell at bedside at this time encouraging pt to stay for admission tw2 to be monitored. 19:16 Reassessment: Dr Mitchell at bedside instructed pt on need for admission due to new bb finding of Atrial Fibrillation explained risks and consequences of possible outcomes including possible stroke or pt opted to go home against medical advice despite all of the explanations. Vital Signs: 17:30 BP 158 / 126; Pulse 143; Temp 98; tw2 17:41 BP 122 / 83; Pulse 144; Resp 16; Pulse Ox 99% on 30% BiPAP; tw2 17:57 BP 130 / 81; Pulse 113; Resp 19; Pulse Ox 97% on BiPAP; tw2 18:19 BP 111 / 83; Pulse 100; Resp 16; Pulse Ox 97% on R/A; tw2 19:26 BP 131 / 83; Pulse 90; Resp 20 S; Pulse Ox 97% on R/A; bb 17:30 dr. mitchell at bedside at this time. tw2 17:41 rate 16, 14/7, provider aware of bp and hr tw2 ED Course: 17:29 Patient arrived in ED. sv 17:29 Anderson Mitchell MD is Attending Physician. gregorio 17:29 Jing Louise, GILSON is Primary Nurse. tw2 17:29 Placed in gown. Bed in low position. residential monitor on. Pulse ox on. NIBP on. tw2 17:29 Arm band placed on. tw2 17:32 Triage completed. sv 17:35 EKG done, by component technician. reviewed by Anderson Mitchell MD. dt2 18:15 Siria Fortune MD is Hospitalizing Provider. gregorio 18:23 X-ray completed. Portable x-ray completed in exam room. Patient tolerated procedure ml well. 18:24 XRAY Chest (1 view) In Process Unspecified. EDMS 18:45 Wendi Ruiz MD is Hospitalizing Provider. gregorio 19:05 Report given to GILSON Gupta, Heparin and Pepcid outstanding at this time, pt wants to go tw2 home and not be admitted. 19:16 Anita Sanchez MD is Referral Physician. [facility] 19:17 Gilberto Albrecht MD is Referral Physician. gregorio 19:26 IV discontinued, intact, bleeding controlled, No redness/swelling at site. Pressure bb dressing applied. Administered Medications: 17:49 Drug: Lopressor 25 mg Route: PO; tw2 18:46 Follow up: Response: No adverse reaction tw2 17:49 Drug: Aspirin 162 mg Route: PO; tw2 18:44 Follow up: Response: No adverse reaction tw2 17:50 Drug: Lopressor 2.5 mg Route: IVP; Site: right antecubital; tw2 18:45 Follow up: Response: No adverse reaction tw2 18:45 Follow up: Response: No adverse reaction; No adverse reaction, HR lowered tw2 Outcome: 18:16 Decision to Hospitalize by Provider. [facility] 19:26 AMA AMA form signed bb 19:27 Patient left the ED. bb Signatures: Dispatcher [employer] EDMS Pascale Gomez RN RN sv Anderson, Corey, MD MD cha Ballard, Brenda RN RN Genesis Espinosa Tara, RN RN tw2 Sandee Harvey dt2 Corrections: (The following items were deleted from the chart) 17:44 17:41 Pulse 144bpm; Resp 16bpm; Pulse Ox 99% 02 30% BiPAP; rate 16, 14/7; tw2 tw2
--- NOTE | 2018-05-03 18:17 | EDPHYS ---
Physician Documentation [facility] Name: Guzman Mayers Age: 73 yrs Sex: Male : 1945 Arrival Date: 05/03/2018 Time: 17:29 Bed 3 Private MD: ED Physician Anderson Mitchell HPI: 05/03 17:37 This 73 yrs old Male presents to ER via EMS with complaints of Hypotension, gregorio Tachycardia. 17:37 The patient has shortness of breath with light activity, 3.5 hours in dialysis. Onset: gregorio The symptoms/episode began/occurred just prior to arrival. Duration: The symptoms are continuous, and are unchanged since they started. The patient's shortness of breath has no apparent modifying factors. The patient or guardian reports chest pain that is located primarily in the anterior chest wall, bilaterally. Onset: just prior to arrival. The patient presents with a history of heart racing. Onset: The symptoms/episode began/occurred just prior to arrival. Modifying factors: The symptoms are aggravated by nothing. The symptoms are alleviated by nothing. Historical: - Allergies: 17:33 Codeine; sv - Home Meds: 18:43 aspirin 81 mg Oral chew 1 tab once daily [Active]; atorvastatin 40 mg Oral tab 1 tab tw2 once daily [Active]; bumetanide 2 mg Oral tab 2 tab once daily [Active]; carvedilol 25 mg Oral tab 1 tab 2 times per day [Active]; cefuroxime axetil 250 mg Oral tab 1 tab 2 times per day [Active]; Centrum Silver 400-250 mcg Oral chew daily [Active]; ferrous sulfate 325 mg (65 mg iron) Oral TbEC three times a day [Active]; gabapentin Oral [Active]; glipizide 5 mg Oral tab 1 tab once daily [Active]; hydralazine 100 mg Oral tab 1 tab 2 times per day [Active]; isosorbide mononitrate 30 mg Oral Tb24 1 tab once daily [Active]; Lantus 100 unit/mL Sub-Q soln 80 unit daily [Active]; metolazone 2.5 mg Oral tab 1 tab once daily [Active]; montelukast 10 mg Oral tab 1 tab once daily [Active]; spironolactone 25 mg Oral tab 1 tab once daily [Active]; PreserVision AREDS 14,320-226-200 [id number] Oral cap [Active]; Valtrex Oral [Active]; - PMHx: 17:33 ADD/ADHD; CHF; CKD; Diabetes - IDDM; Dialysis; High Cholesterol; HTN; Hypertension; sv COPD; - Immunization history:: Adult Immunizations. - Social history:: Smoking status: . - Family history:: not pertinent. - Ebola Screening: : Patient denies travel to an Ebola-affected area in the 21 days before illness onset. ROS: 17:37 Constitutional: Negative for fever, chills, and weight loss, Eyes: Negative for injury, gregorio pain, redness, and discharge, ENT: Negative for injury, pain, and discharge, Neck: Negative for injury, pain, and swelling, Respiratory: Negative for shortness of breath, cough, wheezing, and pleuritic chest pain, Abdomen/GI: Negative for abdominal pain, nausea, vomiting, diarrhea, and constipation, Back: Negative for injury and pain, : Negative for injury, bleeding, discharge, and swelling, MS/Extremity: Negative for injury and deformity, Skin: Negative for injury, rash, and discoloration, Neuro: Negative for headache, weakness, numbness, tingling, and seizure, Psych: Negative for depression, anxiety, suicide ideation, homicidal ideation, and hallucinations, Allergy/Immunology: Negative for hives, rash, and allergies, Endocrine: Negative for neck swelling, polydipsia, polyuria, polyphagia, and marked weight changes, Hematologic/Lymphatic: Negative for swollen nodes, abnormal bleeding, and unusual bruising. 17:37 Cardiovascular: Positive for chest pain, palpitations. Exam: 17:37 Constitutional: This is a well developed, well nourished patient who is awake, alert, gregorio and in no acute distress. Head/Face: Normocephalic, atraumatic. Eyes: Pupils equal round and reactive to light, extra-ocular motions intact. Lids and lashes normal. Conjunctiva and sclera are non-icteric and not injected. Cornea within normal limits. Periorbital areas with no swelling, redness, or edema. ENT: Nares patent. No nasal discharge, no septal abnormalities noted. Tympanic membranes are normal and external auditory canals are clear. Oropharynx with no redness, swelling, or masses, exudates, or evidence of obstruction, uvula midline. Mucous membranes moist. Neck: Trachea midline, no thyromegaly or masses palpated, and no cervical lymphadenopathy. Supple, full range of motion without nuchal rigidity, or vertebral point tenderness. No Meningismus. Chest/axilla: Normal chest wall appearance and motion. Nontender with no deformity. No lesions are appreciated. Abdomen/GI: Soft, non-tender, with normal bowel sounds. No distension or tympany. No guarding or rebound. No evidence of tenderness throughout. Back: No spinal tenderness. No costovertebral tenderness. Full range of motion. Male : Normal genitalia with no discharge or lesions. Skin: Warm, dry with normal turgor. Normal color with no rashes, no lesions, and no evidence of cellulitis. MS/ Extremity: Pulses equal, no cyanosis. Neurovascular intact. Full, normal range of motion. Neuro: Awake and alert, GCS 15, oriented to person, place, time, and situation. Cranial nerves II-XII grossly intact. Motor strength 5/5 in all extremities. Sensory grossly intact. Cerebellar exam normal. Normal gait. Psych: Awake, alert, with orientation to person, place and time. Behavior, mood, and affect are within normal limits. 17:37 Cardiovascular: Rate: tachycardic, Rhythm: irregularly irregular, Pulses: Pulses are 4+ in bilateral radial, brachial, femoral, popliteal, posterior tibial and and dorsalis pedis arteries.. Heart sounds: normal, Edema: is not appreciated, JVD: is not appreciated. Vital Signs: 17:30 BP 158 / 126; Pulse 143; Temp 98; tw2 17:41 BP 122 / 83; Pulse 144; Resp 16; Pulse Ox 99% on 30% BiPAP; tw2 17:57 BP 130 / 81; Pulse 113; Resp 19; Pulse Ox 97% on BiPAP; tw2 18:19 BP 111 / 83; Pulse 100; Resp 16; Pulse Ox 97% on R/A; tw2 19:26 BP 131 / 83; Pulse 90; Resp 20 S; Pulse Ox 97% on R/A; bb 17:30 dr. mitchell at bedside at this time. tw2 17:41 rate 16, 14/7, provider aware of bp and hr tw2 MDM: 17:29 Patient medically screened. [facility] 17:41 Data reviewed: vital signs, nurses notes, lab test result(s), EKG, radiologic studies, gregorio plain films. 05/03 17:37 Order name: Basic Metabolic Panel; Complete Time: 19:16 [facility] 05/03 17:37 Order name: CBC with Diff; Complete Time: 18:51 [facility] 05/03 17:37 Order name: LFT's; Complete Time: 19:16 [facility] 05/03 17:37 Order name: Magnesium; Complete Time: 19:16 [facility] 05/03 17:37 Order name: NT PRO-BNP; Complete Time: 19:16 [facility] 05/03 17:37 Order name: PT-INR; Complete Time: 18:48 [facility] 05/03 17:37 Order name: Troponin (emerg Dept Use Only); Complete Time: 19:16 [facility] 05/03 17:37 Order name: XRAY Chest (1 view); Complete Time: 18:40 [facility] 05/03 17:37 Order name: TSH; Complete Time: 19:16 [facility] 05/03 18:34 Order name: CBC Smear Scan; Complete Time: 18:51 EDMS 05/03 19:08 Order name: Glucose, Ancillary Testing; Complete Time: 19:15 EDMS 04 17:37 Order name: EKG; Complete Time: 17:39 [facility] 05/03 17:37 Order name: Cardiac monitoring; Complete Time: 18:17 [facility] 05/03 17:37 Order name: EKG - Nurse/Tech; Complete Time: 18:17 [facility] 05/03 17:37 Order name: IV Saline Lock; Complete Time: 18:17 [facility] 05/03 17:37 Order name: Labs collected and sent; Complete Time: 18:17 [facility] 05/03 17:37 Order name: O2 Per Protocol; Complete Time: 18:17 [facility] 05/03 17:37 Order name: O2 Sat Monitoring; Complete Time: 18:17 [facility] 05/03 17:37 Order name: EKG; Complete Time: 17:39 [facility] 05/03 17:37 Order name: EKG - Nurse/Tech; Complete Time: 17:44 [facility] 05/03 17:53 Order name: EKG; Complete Time: 17:53 [facility] 05/03 18:46 Order name: EKG; Complete Time: 18:47 tw2 05/03 17:53 Order name: EKG - Nurse/Tech; Complete Time: 18:17 [facility] 05/03 18:46 Order name: EKG - Nurse/Tech; Complete Time: 18:46 tw2 Administered Medications: 17:49 Drug: Lopressor 25 mg Route: PO; tw2 18:46 Follow up: Response: No adverse reaction tw2 17:49 Drug: Aspirin 162 mg Route: PO; tw2 18:44 Follow up: Response: No adverse reaction tw2 17:50 Drug: Lopressor 2.5 mg Route: IVP; Site: right antecubital; tw2 18:45 Follow up: Response: No adverse reaction tw2 18:45 Follow up: Response: No adverse reaction; No adverse reaction, HR lowered tw2 Disposition: 05/03/18 19:17 Patient has left against medical advice. Impression: Atrial fibrillation and flutter - new onset, Dyspnea, Chronic obstructive pulmonary disease with (acute) exacerbation, Obesity, unspecified, End stage renal disease, Hypoxemia. - Patients states they are going to Home. - Condition is Serious. - Discharge Instructions: Atrial Fibrillation, Chronic Obstructive Pulmonary Disease, Obesity, Adult, Chronic Obstructive Pulmonary Disease Exacerbation, Chronic Obstructive Pulmonary Disease, [id number], Dialysis, End-Stage Kidney Disease, Hypoxemia, Cough, Adult, Atog-pe-Gciy, Atrial Fibrillation, [id number]. Follow up: Private Physician; When: Upon discharge from the Emergency Department; Reason: Recheck today's complaints, Continuance of care, Re-evaluation by your physician. Follow up: Anita Sanchez MD; When: Upon discharge from the Emergency Department; Reason: Recheck today's complaints, Continuance of care, Re-evaluation by your physician. Follow up: Gilberto Albrecht MD; When: Upon discharge from the Emergency Department; Reason: Recheck today's complaints, Re-evaluation by your physician. - Problem is new. - Symptoms have improved. Signatures: Dispatcher [employer] Pascale Graf RN RN sv Anderson, Corey, MD MD cha Ballard, Brenda, RN RN bb Wise, Tara, RN RN tw2 Corrections: (The following items were deleted from the chart) 18:45 18:16 Hospitalization Ordered by Siria Fortune MD for Observation. Preliminary gregorio diagnosis is Atrial fibrillation and flutter - new onset; End stage renal disease - on HD; Dyspnea, unspecified; Type 2 diabetes mellitus; Obesity, unspecified. Bed requested for Telemetry/MedSurg (observation). Status is Observation. Condition is Fair. Problem is new. Symptoms have improved. UTI on Admission? No. gregorio 19:16 18:45 05/03/2018 18:16 Hospitalization Ordered by Wendi Ruiz MD for Observation. gregorio Preliminary diagnosis is Atrial fibrillation and flutter - new onset; End stage renal disease - on HD; Dyspnea, unspecified; Type 2 diabetes mellitus; Obesity, unspecified. Bed requested for Telemetry/MedSurg (observation). Status is Observation. Condition is Fair. Problem is new. Symptoms have improved. UTI on Admission? No. gregorio 19:19 19:17 05/03/2018 19:17 Patients has left against medical advice. Patient states they gregorio are going to Home. Condition is Serious. Follow up: Private Physician; When: Upon discharge from the Emergency Department; Reason: Recheck today's complaints, Continuance of care, Re-evaluation by your physician. Follow up: Anita Sanchez; When: Upon discharge from the Emergency Department; Reason: Recheck today's complaints, Continuance of care, Re-evaluation by your physician. Follow up: Gilberto Albrecht; When: Upon discharge from the Emergency Department; Reason: Recheck today's complaints, Re-evaluation by your physician. Problem is new. Symptoms have improved. gregorio 19:27 19:19 05/03/2018 19:17 Patients has left against medical advice. Impression: Atrial bb fibrillation and flutter - new onset; Dyspnea; Chronic obstructive pulmonary disease with (acute) exacerbation; Obesity, unspecified; End stage renal disease; Hypoxemia. Patient states they are going to Home. Condition is Serious. Follow up: Private Physician; When: Upon discharge from the Emergency Department; Reason: Recheck today's complaints, Continuance of care, Re-evaluation by your physician. Follow up: Anita Sanchez; When: Upon discharge from the Emergency Department; Reason: Recheck today's complaints, Continuance of care, Re-evaluation by your physician. Follow up: Gilberto Albrecht; When: Upon discharge from the Emergency Department; Reason: Recheck today's complaints, Re-evaluation by your physician. Problem is new. Symptoms have improved. gregorio
[2018-05-03 18:30] LABS: Hematocrit 33.6 % (39.6-49.0); MCH 36.1 pg (27.0-35.0); MCV 105.7 fL (80-100); MPV 8.6 fL (7.6-11.3); RBC Red Blood Cell Count 3.02 M/uL (4.33-5.43)
[2018-05-03 18:31] LABS: Absolute Lymphocytes (CBC) 1.5 K/uL (0.7-4.9); Absolute Monocytes 0.8 K/uL (0.1-1.3); Basophils % 0.5 % (0-1.3); Eosinophils % 2.7 % (0-4.4); Lymphocytes % 23.3 % (15.3-44.8); Monocytes % 12.1 % (3.3-12.3); Platelet Distribution Width 8.6 fL (9.0-17.0)
--- NOTE | 2018-05-03 18:35 | RAD REPORT ---
EXAM DESCRIPTION: Tony Single View05/03/2018 6:24 pm CLINICAL HISTORY: Chest pain COMPARISON: October 2017 FINDINGS: The lungs appear clear of acute infiltrate. The heart is mildly enlarged IMPRESSION: No acute abnormalities displayed
[2018-05-03 18:40] LABS: Protime INR 1.11
[2018-05-03 18:48] LABS: Blood Morphology Comment NOTED (NOT SEEN); Macrocytosis 1+; Platelet Estimate ADEQ; Urine White Blood Cell Casts OK
[2018-05-03 19:13] LABS: ALT/SGPT 27 U/L (12-78); AST/SGOT 18 U/L (15-37); Albumin 3.8 g/dL (3.4-5.0); Alkaline Phosphatase 92 U/L (45-117); BUN Blood Urea Nitrogen 29 mg/dL (7-18); Bicarbonate 23 mmol/L (21-32); Bilirubin Direct < 0.1 mg/dL (0-0.2); Bilirubin Total 0.4 mg/dL (0.2-1.0); Glucose Level 223 mg/dL (74-106); Magnesium 2.3 mg/dL (1.8-2.4); NT PRO-BNP 6752 pg/mL (<125); Potassium 4.1 mmol/L (3.5-5.1); Protein, Total 7.3 g/dL (6.4-8.2); Sodium Level 136 mmol/L (136-145); Troponin (Emerg Dept Use Only) 0.12 ng/mL (0.0-0.045)
[2018-05-03 19:53] VITALS: TEMP 98
[2018-05-03 19:56] VITALS: O2SAT 97
[2018-05-03 19:59] VITALS: BP 131/83
--- NOTE | 2018-05-03 22:38 | EKG ---
Test Date: 2018-05-03 Test Time: 17:30:08 Set Up Mechanic Coating Machines: LILLY MEASUREMENT RESULTS: Intervals: Rate: 142 [place]: QRSD: 148 QT: 374 QTc: 575 [place]: P: [place]: QRS: -86 T: 50 INTERPRETIVE STATEMENTS: Atrial flutter with 2 to 1 block Right bundle branch block Left anterior fascicular block Bifascicular block Abnormal ECG Compared to ECG 11/11/2017 12:36:08 Sinus rhythm no longer present Electronically Signed On 05-03-18 22:38:05 SALES REPRESENTATIVE PRINTING by Gilberto Albrecht
--- NOTE | 2018-05-04 08:05 | EKG ---
Test Date: 2018-05-03 Test Time: 18:09:39 Property Analyst: LUKE MEASUREMENT RESULTS: Intervals: Rate: 104 [place]: QRSD: 148 QT: 412 QTc: 541 [place]: P: [place]: QRS: -77 T: 15 INTERPRETIVE STATEMENTS: Atrial fibrillation with rapid ventricular response Left axis deviation Right bundle branch block Abnormal ECG Compared to ECG 05/03/2018 17:53:53 Left-axis deviation now present Electronically Signed On 05-04-18 08:05:07 MULE TENDER by Gilberto Albrecht
--- NOTE | 2018-05-04 08:07 | EKG ---
Test Date: 2018-05-03 Test Time: 17:53:53 Aadc Plans Staff Officer: LUKE MEASUREMENT RESULTS: Intervals: Rate: 104 [place]: QRSD: 158 QT: 420 QTc: 552 [place]: P: [place]: QRS: -83 T: 42 INTERPRETIVE STATEMENTS: Atrial fibrillation with rapid ventricular response Right bundle branch block Left axis Abnormal ECG Compared to ECG 05/03/2018 17:40:21 no significant change from previous ECG although the heart rate has decreased Electronically Signed On 05-04-18 08:06:18 COMMUNICATIONS ATTENDANT by Gilberto Albrecht
--- NOTE | 2018-05-04 08:07 | EKG ---
Test Date: 2018-05-03 Test Time: 17:40:21 Geomatics Professor: LUKE MEASUREMENT RESULTS: Intervals: Rate: 143 [place]: QRSD: 148 QT: 374 QTc: 577 [place]: P: [place]: QRS: -89 T: 45 INTERPRETIVE STATEMENTS: Atrial fibrillation with rapid ventricular response Right bundle branch block Left axis Abnormal ECG Compared to ECG 05/03/2018 17:30:08 Atrial flutter no longer present Electronically Signed On 05-04-18 08:06:59 SUPERVISOR OFFSET PLATE PREPARATION by Gilberto Albrecht
== END 2018-05-03 19:27 | disposition left against medical advice (07) ==
LOC: ER 17:20
DX: I48.91 Unspecified atrial fibrillation (principal); I48.92 Unspecified atrial flutter; I45.10 Unspecified right bundle-branch block; J44.1 Chronic obstructive pulmonary disease with (acute) exacerbation; E66.9 Obesity, unspecified; E11.22 Type 2 diabetes mellitus with diabetic chronic kidney disease; I13.2 Hypertensive heart and chronic kidney disease with heart failure and with stage 5 chronic kidney disease, or end stage renal disease; I50.9 Heart failure, unspecified; N18.6 End stage renal disease; Z99.2 Dependence on renal dialysis; E78.00 Pure hypercholesterolemia, unspecified; F90.9 Attention-deficit hyperactivity disorder, unspecified type; Z79.4 Long term (current) use of insulin; Z79.82 Long term (current) use of aspirin; Z79.899 Other long term (current) drug therapy
CPT/HCPCS: 36415; 71045; 80048; 80076; 82962; 83735; 83880; 84443; 84484; 85025; 85610; 93005; 94660; 96374; 99284

== ENCOUNTER 2018-05-17 09:37 | Inpatient (IN) | payer OTHER, BC ==
[2018-05-17 10:36] LABS: Absolute Lymphocytes (CBC) 1.2 K/uL (0.7-4.9); Absolute Monocytes 0.8 K/uL (0.1-1.3); Absolute Neutrophil 4.9 K/uL (1.8-8.0); Basophils % 0.6 % (0-1.3); Eosinophils % 2.8 % (0-4.4); Hematocrit 26.9 % (39.6-49.0); Lymphocytes % 16.8 % (15.3-44.8); MPV 7.6 fL (7.6-11.3); Monocytes % 10.7 % (3.3-12.3); RBC Red Blood Cell Count 2.58 M/uL (4.33-5.43)
[2018-05-17 10:43] LABS: Protime INR 1.17
--- NOTE | 2018-05-17 11:06 | EKG ---
Test Date: 2018-05-17 Test Time: 10:27:18 Kelp Gatherer: ZEFERINO MEASUREMENT RESULTS: Intervals: Rate: 66 [place]: 184 QRSD: 172 QT: 450 QTc: 471 [place]: P: 31 [place]: 184 QRS: -68 T: 6 INTERPRETIVE STATEMENTS: Sinus rhythm with fusion complexes Right bundle branch block Left anterior fascicular block Bifascicular block Septal infarct, age undetermined Abnormal ECG Compared to ECG 05/03/2018 18:09:39 Fusion complex(es) now present Left anterior fascicular block now present Bifascicular block now present Myocardial infarct finding now present Atrial fibrillation no longer present Left-axis deviation no longer present Electronically Signed On 05-17-18 11:05:45 BANQUET STEWARDESS by Francisco Saucedo
[2018-05-17 11:12] LABS: Albumin 3.6 g/dL (3.4-5.0); Bilirubin Direct 0.1 mg/dL (0-0.2); Bilirubin Total 1.1 mg/dL (0.2-1.0); Potassium 4.5 mmol/L (3.5-5.1); Protein, Total 6.6 g/dL (6.4-8.2); Troponin (Emerg Dept Use Only) 0.14 ng/mL (0.0-0.045)
--- NOTE | 2018-05-17 11:55 | RAD REPORT ---
EXAM DESCRIPTION: RAD - Chest Pa And Lat (2 Views) - 05/17/2018 11:48 am CLINICAL HISTORY: DYSPNEA Chest pain. COMPARISON: Chest Single View dated 05/03/2018; Chest Single View dated 11/11/2017; Chest Single View dated 11/11/2017; Chest Pa And Lat (2 Views) dated 06/07/2017 FINDINGS: The lungs are emphysematous but clear. The heart is normal in size. No displaced fractures . IMPRESSION: COPD.
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
[2018-05-17] MEDS: INSULIN -REGULAR HUMAN 50 UNIT/0.5 ML ML SQ SCH ×2 (16:30→21:00)
[2018-05-17] MEDS ORDERED: PNEUMOCOCCAL VACCINE 0.5 ML IMVAC ONE (17:00)
[2018-05-17] MEDS ORDERED: ALBUTEROL 2.5 MG/3 ML NEB SOL NEB PRN (18:43)
[2018-05-17] MEDS ORDERED: IPRATROPIUM BROM 0.5MG/2.5ML NEB PRN (18:43)
--- NOTE | 2018-05-17 18:48 | P.HP ---
Certification for Inpatient Patient admitted to: Observation With expected LOS: <2 Midnights Practitioner: I am a practitioner with admitting privileges, knowledge of patient current condition, hospital course, and medical plan of care. Services: Services provided to patient in accordance with Admission requirements found in Title 42 Section 412.3 of the Code of Federal Regulations Patient History Date of Service: 05/17/18 Reason for admission: SOB , productive cough History of Present Illness: This is a 73-year-old male with significant past medical history of hypertension , diabetes, COPD, end-stage renal disease on hemodialysis who presented to the ED complaining of having some cough and orthopnea for past 2 weeks. Patient stated that he has been noticing that his cough and orthopnea has been getting worse progressively and thus he decided to come to the ER. Secondary to his cough he has also started to have some chest pain in the rib area and he is also having headaches as well. Cough is productive in nature and he brings up clear sputum with now than when it initially started. Patient denies having any fever should vomiting or any other associated symptoms at this time. Patient states that he has been doing fairly well until this cough started this even. Patient states that at night time he is unable to lay flat who has noticed that his speech has swollen bilaterally as well. Allergies codeine Allergy (Verified 11/27/16 08:50) Anaphylaxis Home Medications: Amlodipine Besylate [Norvasc] 5 mg PO DAILY 05/17/18 Apixaban [Eliquis *] 2.5 mg PO DAILY 05/17/18 Atorvastatin Calcium [Lipitor] 40 mg PO DAILY 05/17/18 Bisacodyl [Gentle Laxative] 5 mg PO DAILY 05/17/18 Calcium Carbonate [Tums X-Str] 300 mg PO DAILY 05/17/18 Carvedilol [Coreg] 12.5 mg PO BID 05/17/18 Docusate [Colace Cap*] 250 mg PO DAILY 05/17/18 Insulin Glargine Human [Lantus*] 50 units SQ DAILY 05/17/18 Vit A/Vit C/Vit E/Zinc/Copper [Preservision Areds Softgel] 1 cap PO DAILY glipiZIDE [Glipizide] 5 mg PO DAILY 05/17/18 - Past Medical/Surgical History Has patient received pneumonia vaccine in the past: No Diabetic: Yes -: Hypertension -: Hyperlipidemia -: Diabetes type 2 -: 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 moist/pink, EOMI, Sclerae nonicteric Neck: Supple, 2+ carotid pulse no bruit, No LAD, Without JVD or thyroid abnormality Respiratory: Normal air movement, Expiratory wheezes, Inspiratory wheezes Cardiovascular: Regular rate/rhythm, Normal S1 S2 Gastrointestinal: Normal bowel sounds, No tenderness Musculoskeletal: No tenderness, Swelling (Edema bilateral lower extremity) Integumentary: No rashes, Tenderness/swelling Neurological: Normal speech, Normal strength at 5/5 x4 extr, Normal tone Lymphatics: No axilla or inguinal lymphadenopathy - Studies Laboratory Data (last 24 hrs) 05/17/18 10:25: PT 13.8 H, INR 1.17 05/17/18 10:25: WBC 7.1, Hgb 9.6 L, Hct 26.9 L D, Plt Count 228 D 05/17/18 10:25: Sodium 134 L, Potassium 4.5, BUN 70 H D, Creatinine 11.70 H* D, Glucose 154 H, Total Bilirubin 1.1 H, AST 9 L, ALT 18, Alkaline Phosphatase 87 Microbiology Data (last 24 hrs): 05/17/18 12:00 Nasopharnyx Influenza Type A Antigen Screen - Final 05/17/18 12:00 Nasopharnyx Influenza Type B Antigen Screen - Final Assessment and Plan - Problems (Diagnosis) (1) Acute bronchitis Onset Date: 06/03/15 Current Visit: No Status: Acute Plan: Acute bronchitis with acute cough. -was start patient on duo nebs. Will get pro calcitonin at this time. Will hold off on antibiotics until we get pro calcitonin. If elevated will start antibiotics here as well. Qualifiers: Bronchitis organism: unspecified organism Qualified Code(s): J20.9 - Acute bronchitis, unspecified (2) CHF (congestive heart failure) Onset Date: 09/09/15 Current Visit: No Status: Acute Plan: Patient complaining about their and with coughing along with bilateral lower extremity swelling -patient could be having CHF exacerbation -will get echocardiogram at this time -will give will Lasix x1 here in the hospital Qualifiers: Qualified Code(s): I50.21 - Acute systolic (congestive) heart failure (3) COPD (chronic obstructive pulmonary disease) Onset Date: 09/09/15 Current Visit: No Status: Chronic Plan: COPD with acute bronchitis -will start patient on duo nebs and steroids at this time. 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: with 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 Diabetes mellitus complication status: with kidney complications Diabetes mellitus complication detail: with chronic kidney disease Chronic kidney disease stage: on chronic dialysis Qualified Code(s) : E11.22 - Type 2 diabetes mellitus with diabetic chronic kidney disease; N18.6 - End stage renal disease; Z79.4 - intermediate designer (current) use of insulin; Z99.2 - Dependence on renal dialysis Discharge Plan: Home Plan to discharge in: 48 Hours - Advance Directives Does patient have a Living Will: No Does patient have a Durable POA for Healthcare: No - Code Status/Comfort Care Code Status Assessed: Yes Critical Care: No
[2018-05-17] MEDS ORDERED: EPOETIN ALFA 10,000 UNIT/ML VIAL ONE (19:50)
[2018-05-17] MEDS: EPOETIN ALFA 4,000 UNIT/ML VIAL SQ SCH (19:55)
[2018-05-17] MEDS ORDERED: ALBUMIN HUMAN 25% 50 ML IV SCH (20:00)
[2018-05-17] MEDS: CARVEDILOL 12.5 MG TAB PO SCH (22:30)
[2018-05-18 04:37] LABS: Absolute Lymphocytes (CBC) 1.3 K/uL (0.7-4.9); Absolute Neutrophil 4.8 K/uL (1.8-8.0); Basophils % 0.7 % (0-1.3); Hematocrit 27.6 % (39.6-49.0); Lymphocytes % 17.9 % (15.3-44.8); MPV 7.6 fL (7.6-11.3); Monocytes % 13.4 % (3.3-12.3); RBC Red Blood Cell Count 2.63 M/uL (4.33-5.43)
[2018-05-18 05:21] LABS: Blood Morphology Comment NOTED (NOT SEEN); Macrocytosis SLIGHT; Platelet Estimate ADEQ; Urine White Blood Cell Casts OK
[2018-05-18 05:28] LABS: Albumin 3.7 g/dL (3.4-5.0); Bilirubin Total 0.6 mg/dL (0.2-1.0); Ferritin 735.8 ng/mL (26-388); Phosphorus 3.6 mg/dL (2.5-4.9); Potassium 3.6 mmol/L (3.5-5.1)
[2018-05-18] MEDS: INSULIN -REGULAR HUMAN 50 UNIT/0.5 ML ML SQ SCH ×4 (07:30→21:43)
[2018-05-18] MEDS ORDERED: AMLODIPINE 5 MG TAB PO SCH (09:00)
[2018-05-18] MEDS ORDERED: POTASSIUM 25 MEQ EFFERV TAB PO ONE (09:00)
[2018-05-18] MEDS ORDERED: DOCUSATE NA 100 MG CAP PO SCH (09:00)
[2018-05-18] MEDS ORDERED: ATORVASTATIN 40 MG TAB PO SCH (09:00)
[2018-05-18] MEDS: CALCIUM CARBONATE 300 MG PO SCH (09:00)
--- NOTE | 2018-05-18 09:41 | RAD REPORT ---
EXAM DESCRIPTION: RAD - Chest Pa And Lat (2 Views) - 05/18/2018 8:38 am CLINICAL HISTORY: Orthopnea, cough, shortness of breath COMPARISON: May 17 TECHNIQUE: PA and lateral views of the chest were obtained. FINDINGS: The lungs are fibrotic as a baseline. No peripheral consolidation or mass. Chronic and dis ease could mask early interstitial edema or infiltrate. No clear change from prior imaging. Heart s ize is normal and central vasculature is within normal limits. No pleural effusion or pneumothorax s een. No acute bony finding noted. No aortic abnormality. IMPRESSION: Chronic interstitial lung disease. Findings are not substantially different from prior d ay study.
[2018-05-18] MEDS: CARVEDILOL 12.5 MG TAB PO SCH ×2 (10:13→21:45)
[2018-05-18] MEDS: ONDANSETRON 4 MG/2 ML VIAL IV PRN (10:13)
[2018-05-18] MEDS: BENZONATATE 100 MG CAP PO PRN ×2 (10:13→16:00)
[2018-05-18] MEDS: PANTOPRAZOLE 40MG TABLET PO SCH ×2 (10:15→16:47)
[2018-05-18] MEDS: APIXABAN 2.5 MG TABLET PO SCH (10:15)
[2018-05-18] MEDS: BISACODYL E.C. 5 MG TAB PO SCH (10:15)
[2018-05-18] MEDS: GUAIFENESIN 600 MG SA TAB PO SCH ×2 (10:16→21:43)
--- NOTE | 2018-05-18 10:22 | RAD REPORT ---
EXAM DESCRIPTION: CT - Thorax Wo Con CLINICAL HISTORY: Chest pain Chronic Cough with asbestos exposure COMPARISON: Thorax Wo Con dated 04/08/2016; Chest Pa And Lat (2 Views) dated 05/18/2018; Chest Pa And Lat (2 Views) dated 05/17/2018; Thorax Wo Con dated 09/08/2015; THORAX WO CONTRAST dated 06/02/2015 FINDINGS: A 7 mm nodule in the left lung base (image 40/56) shows greater than 2 years of stability, indicating that it is benign. No worrisome pulmonary nodule, mass or infiltrate. No pleural thickeni ng or pleural effusion. No pneumothorax. Mild aortic arch atherosclerosis. No axillary, mediastinal or hilar adenopathy. Moderate axial hiatal hernia. No concerning bony finding. Small nodule in the left adrenal gland is present, unchanged. All CT scans are performed using dose optimization technique as appropriate and may include automated exposure control or mA/KV adjustment according to patient size. IMPRESSION: No acute or worrisome intrathoracic finding.Moderate axial hiatal hernia.
[2018-05-18] MEDS: SOD FERRIC GLUC COMPLX/SUCROSE 125 MG in NA CHLORIDE 0.9% 100 ML IV SCH (11:59)
[2018-05-18] MEDS: EPOETIN ALFA 4,000 UNIT/ML VIAL SQ SCH (12:01)
--- NOTE | 2018-05-18 12:50 | P.PN ---
Subjective Date of Service: 05/18/18 Chief Complaint: SOB , productive cough Patient seen at bedside with RN. Chart reviewed. Case discussed with patient at bedside. This morning after rounds patient had a syncopal episode at bedside from coughing. The patient also had a syncopal episode last night and had a fall at bedside. Patient's respiratory status was stable and vitals were stable at that time. Patient regained consciousness in 5 seconds. No further complications noted Review of Systems 10-point ROS is otherwise unremarkable Physical Examination - Vital Signs Temperature: 99.6 F Blood Pressure: 137/62 Pulse: 81 Respirations: 22 Pulse Ox (%): 91 - Physical Exam General: Alert, Mild distress HEENT: Atraumatic, PERRLA, EOMI Neck: Supple, JVD not distended Respiratory: Normal air movement, Expiratory wheezes, Inspiratory wheezes Cardiovascular: Regular rate/rhythm, Normal S1 S2 Gastrointestinal: Normal bowel sounds, No tenderness Musculoskeletal: No tenderness Integumentary: No rashes Neurological: Normal speech, Normal tone, Normal affect Lymphatics: No axilla or inguinal lymphadenopathy - Studies Microbiology Data (last 24 hrs): 05/17/18 10:40 Blood - Blood Anaerobic Blood Culture - Final 05/17/18 12:00 Nasopharnyx Influenza Type A Antigen Screen - Final 05/17/18 12:00 Nasopharnyx Influenza Type B Antigen Screen - Final Medications List Reviewed: Yes Assessment And Plan - Current Problems (Diagnosis) (1) Syncope Current Visit: Yes Status: Acute Plan: Most Likely Vasovagal 2.2 to Cough -PT and OT consulted. -fall precaution Qualifiers: Syncope type: vasovagal syncope Qualified Code(s): R55 - Syncope and collapse (2) Acute bronchitis Onset Date: 06/03/15 Current Visit: No Status: Acute Plan: Acute bronchitis with acute cough and worsening. -Started on Duonebs and IV abx. -Sputum Culture pending -ordered CT chest as patient with acute worsening. -F.u with result. Qualifiers: Bronchitis organism: unspecified organism Qualified Code(s): J20.9 - Acute bronchitis, unspecified (3) CHF (congestive heart failure) Onset Date: 09/09/15 Current Visit: No Status: Acute Plan: Patient complaining about their and with coughing along with bilateral lower extremity swelling -possible CHF exacerbation -will get echocardiogram at this time -will give will Lasix x1 here in the hospital Qualifiers: Qualified Code(s): I50.21 - Acute systolic (congestive) heart failure (4) COPD (chronic obstructive pulmonary disease) Onset Date: 09/09/15 Current Visit: No Status: Chronic Plan: COPD with acute bronchitis -On duonebs and started on IV abx. -Procal is pending. Qualifiers: COPD type: chronic bronchitis Chronic bronchitis type: simple Qualified Code(s): J41.0 - Simple chronic bronchitis (5) ESRD (end stage renal disease) Onset Date: 04/08/16 Current Visit: No Status: Chronic Plan: Will get hemodialysis here in the hospital (6) Hypertension Onset Date: 05/18/18 Current Visit: Yes Status: Acute Plan: Restart on home medication Qualifiers: Hypertension type: essential hypertension Qualified Code(s): I10 - Essential (primary) hypertension (7) Diabetes Onset Date: 09/03/16 Current Visit: No Status: Chronic Plan: Insulin sliding scale Qualifiers: Diabetes mellitus type: type 2 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
[2018-05-18] MEDS: Levofloxacin 250mg IV 250 MG/50 ML BAG IV SCH (13:00)
[2018-05-18] MEDS ORDERED: DOCUSATE CALCIUM 240 MG CAP PO PRN (14:47)
--- NOTE | 2018-05-18 15:55 | PN ---
Date of Progress Note: 05/18/2018 Subjective: The patient is still complaining from dry cough. Physical Examination: Vital Signs: Blood pressure of 137/62, pulse of 82. Chest: Crackles bilateral. Heart: S1-S2. Regular. Abdomen: Soft, nontender. Extremity: Trace edema. Laboratory Data: H and H 9.8/27.6. Sodium 135, potassium 3.6, bicarb 29, BUN 37, creatinine 7.6, ca lcium 8.7, phosphorus 3.6, TSAT of 16. Ferritin of 735, PTH 282. Current Medications: The patient on include Levaquin 250, Eliquis, Epogen, atorvastatin, carvedilol, pantoprazole, insulin, bisacodyl, docusate, and KCl. Diagnostic Data: Chest x-ray, congestion bilateral. Assessment And Plan: 1.End-stage renal disease, slightly on the wet side. I am going to go ahead and do extra dialysis o f sequential today, and we will monitor the patient. 2.Hypertension, controlled, optimal. Continue current medication. 3.Dry cough with possible syncope after cough. Will follow up with the primary. Consider pulmonary evaluation. 4.Diabetes, as by primary. 5.Secondary hyperparathyroidism. Stable. Continue calcium carbonate. 6.Iron deficiency anemia. I will start the patient on IV iron, and we will continue Epogen. 7.Congestive heart failure. We will try to establish better volume control with dialysis. VISHAL Voice ID: [id number] Report ID: [id number]
--- NOTE | 2018-05-18 16:10 | ECHO ---
HEIGHT: 5 ft 10 in WEIGHT: 214 lb 12.8 oz DATE OF STUDY: 05/18/[address]: Siria Fortune MD 2-DIMENSIONAL: YES M.MODE: YES DOPPLER: YES COLOR FLOW: YES TDS: PORTABLE: DEFINITY: BUBBLE STUDY: DIAGNOSIS: CONGESTIVE HEART FAILURE CARDIAC HISTORY: CATHERIZATION: NO SURGERY: NO PROSTHETIC VALVE: NO PACEMAKER: NO MEASUREMENTS (cm) DIASTOLIC (NORMALS) SYSTOLIC (NORMALS) IVSd 1.5 (0.6-1.2) LVEF 56% LVIDd 5.2 (3.5-5.7) LVIDs 3.7 (2.0-3.5) %FS 29% LVPWd 1.6 (0.6-1.2) Ao Diam 3.0 (2.0-3.7) 2 DIMENSIONAL ASSESSMENT: RIGHT ATRIUM: NORMAL LEFT ATRIUM: DILATED RIGHT VENTRICLE: NORMAL LEFT VENTRICLE: LEFT VENTRICULAR HYPERTROPHY CONCENTRIC TRICUSPID VALVE: NORMAL MITRAL VALVE: NORMAL PULMONIC VALVE: NORMAL AORTIC VALVE: NORMAL PERICARDIAL EFFUSION: NONE AORTIC ROOT: NORMAL LEFT VENTRICULAR WALL MOTION: NORMAL DOPPLER/COLOR FLOW: IMPAIRED LEFT VENTRICULAR RELAXATION. COMMENTS: NORMAL LEFT VENTRICULAR EJECTION FRACTION. LEFT VENTRICULAR HYPERTROPHY CONCENTRIC. DILATED LEFT ATRIUM. IMPAIRED LEFT VENTRICULAR RELAXATION. TECHNOLOGIST: SRINI PALMA
[2018-05-18] MEDS: ATORVASTATIN 40 MG TAB PO SCH (21:42)
[2018-05-19 04:10] LABS: Absolute Lymphocytes (CBC) 1.9 K/uL (0.7-4.9); Absolute Neutrophil 3.7 K/uL (1.8-8.0); Basophils % 0.4 % (0-1.3); Eosinophils % 1.9 % (0-4.4); Hematocrit 26.9 % (39.6-49.0); Lymphocytes % 27.7 % (15.3-44.8); MPV 7.9 fL (7.6-11.3); Monocytes % 14.8 % (3.3-12.3); RBC Red Blood Cell Count 2.53 M/uL (4.33-5.43)
[2018-05-19 04:53] LABS: Albumin 3.5 g/dL (3.4-5.0); Bilirubin Total 0.8 mg/dL (0.2-1.0); Potassium 4.1 mmol/L (3.5-5.1); Protein, Total 6.7 g/dL (6.4-8.2)
--- NOTE | 2018-05-19 09:11 | RAD REPORT ---
EXAM DESCRIPTION: RAD - Chest Pa And Lat (2 Views) - 05/19/2018 9:02 am CLINICAL HISTORY: Orthopnea Chest pain. COMPARISON: Chest Pa And Lat (2 Views) dated 05/18/2018; Chest Pa And Lat (2 Views) dated 05/17/2018 ; Chest Single View dated 05/03/2018; Chest Single View dated 11/11/2017 FINDINGS: The lungs are mildly emphysematous but clear. The heart is normal in size. Moderate axial hiatal hernia suspected. No displaced fracture. IMPRESSION: COPD. Moderate hiatal hernia.
--- NOTE | 2018-05-19 09:51 | P.PN ---
Subjective Date of Service: 05/19/18 Chief Complaint: SOB , productive cough Pt with ERSD and COPD presented with cough had syncopal episodes in the hospital associated with cough today had near syncope as per him will check for orthostatic changes Head CT wihout contrast HD sequential yesterday will do HD tomorrow Physical Examination - Vital Signs Temperature: 99 F Blood Pressure: 154/69 Pulse: 77 Respirations: 20 Pulse Ox (%): 98 - Physical Exam General: Oriented x3 HEENT: Atraumatic Neck: Supple, Without JVD or thyroid abnormality Respiratory: Clear to auscultation bilaterally Cardiovascular: No edema, Regular rate/rhythm, Normal S1 S2 Gastrointestinal: Normal bowel sounds, Soft and benign - Studies Microbiology Data (last 24 hrs): 05/17/18 10:40 Blood - Blood Anaerobic Blood Culture - Final Medications List Reviewed: Yes Assessment And Plan - Current Problems (Diagnosis) (1) Acute bronchitis Onset Date: 06/03/15 Current Visit: No Status: Acute Qualifiers: Bronchitis organism: unspecified organism Qualified Code(s): J20.9 - Acute bronchitis, unspecified (2) Anemia Onset Date: 04/08/16 Current Visit: No Status: Chronic (3) COPD (chronic obstructive pulmonary disease) Onset Date: 09/09/15 Current Visit: No Status: Chronic Qualifiers: COPD type: chronic bronchitis Chronic bronchitis type: simple Qualified Code(s): J41.0 - Simple chronic bronchitis (4) ESRD (end stage renal disease) Onset Date: 04/08/16 Current Visit: No Status: Chronic - Plan a 73-year-old gentleman, PMH x of ESRD on HD [facility]sat from [facility] , COPD, coronary artery disease with cardiomyopathy EF ~40% Pt presented with woresning productive cough for the lst 2wks pt noticed cough last 2wks tried OTC meds with no improvement also had headache and chest pain associated with cough no nausea , vomiting , diarrhea or constipation ESRD will cont HD TTsat renal diet renal dose meds Acute bronchitis and Hx of COPD on Abx TTE; LVEF 55% cultures so far -ve influenza -ve F/u procal level Anemia on LUANNE 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
--- NOTE | 2018-05-19 10:35 | RAD REPORT ---
EXAM DESCRIPTION: CT - Head Brain Wo Cont - 05/19/2018 10:29 am CLINICAL HISTORY: syncope Headache, drowsiness COMPARISON: Head Brain Wo Cont dated 11/11/2017; Head Brain Wo Cont dated 11/11/2017 TECHNIQUE: All CT scans are performed using dose optimization technique as appropriate and may inclu de automated exposure control or mA/KV adjustment according to patient size. FINDINGS: No intracranial hemorrhage, hydrocephalus or extra-axial fluid collection.No areas of brai n edema or evidence of midline shift. The paranasal sinuses and mastoids are clear. The calvarium is intact. IMPRESSION: No acute intracranial abnormality.
[2018-05-19] MEDS: CARVEDILOL 12.5 MG TAB PO SCH ×2 (10:41→21:09)
[2018-05-19] MEDS: BISACODYL E.C. 5 MG TAB PO SCH (10:42)
[2018-05-19] MEDS: GUAIFENESIN 600 MG SA TAB PO SCH ×2 (10:42→21:09)
[2018-05-19] MEDS: PANTOPRAZOLE 40MG TABLET PO SCH ×2 (10:42→17:26)
[2018-05-19] MEDS: APIXABAN 2.5 MG TABLET PO SCH (10:42)
[2018-05-19] MEDS: INSULIN -REGULAR HUMAN 50 UNIT/0.5 ML ML SQ SCH ×4 (10:43→21:09)
[2018-05-19] MEDS: CALCIUM CARBONATE 300 MG PO SCH (10:44)
--- NOTE | 2018-05-19 15:52 | P.PN ---
Subjective Date of Service: 05/19/18 Chief Complaint: SOB , productive cough Patient seen at bedside with RN. Chart reviewed. Case discussed with patient at bedside. Review of Systems 10-point ROS is otherwise unremarkable Physical Examination - Vital Signs Temperature: 97.9 F Blood Pressure: 121/59 Pulse: 70 Respirations: 18 Pulse Ox (%): 92 - Physical Exam General: Alert, In no apparent distress HEENT: Atraumatic, PERRLA, EOMI Neck: Supple, JVD not distended Respiratory: Clear to auscultation bilaterally, Normal air movement Cardiovascular: Regular rate/rhythm, Normal S1 S2 Gastrointestinal: Normal bowel sounds, No tenderness Musculoskeletal: No tenderness Integumentary: No rashes Neurological: Normal speech, Normal tone, Normal affect Lymphatics: No axilla or inguinal lymphadenopathy - Studies Microbiology Data (last 24 hrs): 05/17/18 10:40 Blood - Blood Anaerobic Blood Culture - Final Medications List Reviewed: Yes Assessment And Plan - Current Problems (Diagnosis) (1) Syncope Current Visit: Yes Status: Acute Plan: Most Likely Vasovagal 2.2 to Cough -PT and OT consulted. -fall precaution Qualifiers: Syncope type: vasovagal syncope Qualified Code(s): R55 - Syncope and collapse (2) Acute bronchitis Onset Date: 06/03/15 Current Visit: No Status: Acute Plan: Acute bronchitis with acute cough and worsening. -Started on Duonebs and IV abx. -Sputum Culture pending -ordered CT chest as patient with acute worsening. -F.u with result. Qualifiers: Bronchitis organism: unspecified organism Qualified Code(s): J20.9 - Acute bronchitis, unspecified (3) CHF (congestive heart failure) Onset Date: 09/09/15 Current Visit: No Status: Acute Plan: Patient complaining about their and with coughing along with bilateral lower extremity swelling -possible CHF exacerbation -will get echocardiogram at this time -will give will Lasix x1 here in the hospital Qualifiers: Qualified Code(s): I50.21 - Acute systolic (congestive) heart failure (4) COPD (chronic obstructive pulmonary disease) Onset Date: 09/09/15 Current Visit: No Status: Chronic Plan: COPD with acute bronchitis -On duonebs and started on IV abx. -Procal is pending. Qualifiers: COPD type: chronic bronchitis Chronic bronchitis type: simple Qualified Code(s): J41.0 - Simple chronic bronchitis (5) ESRD (end stage renal disease) Onset Date: 04/08/16 Current Visit: No Status: Chronic Plan: Will get hemodialysis here in the hospital (6) Hypertension Onset Date: 05/18/18 Current Visit: Yes Status: Acute Plan: Restart on home medication Qualifiers: Hypertension type: essential hypertension Qualified Code(s): I10 - Essential (primary) hypertension (7) Diabetes Onset Date: 09/03/16 Current Visit: No Status: Chronic Plan: Insulin sliding scale Qualifiers: Diabetes mellitus type: type 2 Diabetes mellitus 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
[2018-05-19] MEDS: ATORVASTATIN 40 MG TAB PO SCH (21:08)
[2018-05-20 06:01] VITALS: BMI 30.4
[2018-05-20 06:18] LABS: Absolute Lymphocytes (CBC) 1.9 K/uL (0.7-4.9); Absolute Neutrophil 4.4 K/uL (1.8-8.0); Basophils % 0.5 % (0-1.3); Eosinophils % 2.8 % (0-4.4); Lymphocytes % 25.5 % (15.3-44.8); MPV 8.1 fL (7.6-11.3); Monocytes % 13.3 % (3.3-12.3); RBC Red Blood Cell Count 2.76 M/uL (4.33-5.43)
[2018-05-20 06:53] LABS: Albumin 3.6 g/dL (3.4-5.0); Bilirubin Total 0.9 mg/dL (0.2-1.0); Potassium 4.7 mmol/L (3.5-5.1); Protein, Total 6.8 g/dL (6.4-8.2)
[2018-05-20] MEDS: PANTOPRAZOLE 40MG TABLET PO SCH ×2 (08:44→17:17)
[2018-05-20] MEDS: APIXABAN 2.5 MG TABLET PO SCH (08:44)
[2018-05-20] MEDS: INSULIN -REGULAR HUMAN 50 UNIT/0.5 ML ML SQ SCH ×4 (08:44→21:38)
[2018-05-20] MEDS: GUAIFENESIN 600 MG SA TAB PO SCH (08:44)
[2018-05-20] MEDS: BISACODYL E.C. 5 MG TAB PO SCH (08:44)
--- NOTE | 2018-05-20 08:44 | RAD REPORT ---
EXAM DESCRIPTION: Tony Walsh And Jimmy (2 Views)05/20/2018 8:13 am CLINICAL HISTORY: Orthopnea COMPARISON: May 19 FINDINGS: The lungs appear clear of acute infiltrate. The heart is borderline enlarged. Small to mo derate hiatal hernia IMPRESSION: No acute abnormalities displayed
[2018-05-20] MEDS: CARVEDILOL 12.5 MG TAB PO SCH ×2 (08:49→21:37)
[2018-05-20] MEDS: SOD FERRIC GLUC COMPLX/SUCROSE 125 MG in NA CHLORIDE 0.9% 100 ML IV SCH (09:57)
[2018-05-20] MEDS: EPOETIN ALFA 4,000 UNIT/ML VIAL SQ SCH (10:05)
--- NOTE | 2018-05-20 10:16 | P.PN ---
Subjective Date of Service: 05/20/18 Chief Complaint: SOB , productive cough Pt with ERSD and COPD HD today still have persistent cough with vasogal effect CXR: no pathology agree with pulmonary evaluation Physical Examination - Vital Signs Temperature: 99.7 F Blood Pressure: 133/69 Pulse: 71 Respirations: 18 Pulse Ox (%): 97 - Physical Exam General: Oriented x3, Mild distress HEENT: Atraumatic Neck: Without JVD or thyroid abnormality Respiratory: Diminished Cardiovascular: No edema, Regular rate/rhythm, Normal S1 S2 - Studies Laboratory Data (last 24 hrs) 05/20/18 06:01: Sodium 131 L, Potassium 4.7, BUN 78 H, Creatinine 12.60 H* D, Glucose 255 H, Total Bilirubin 0.9, AST 6 L, ALT 18, Alkaline Phosphatase 87 05/20/18 06:01: WBC 7.6, Hgb 10.2 L, Hct 29.0 L, Plt Count 238 Microbiology Data (last 24 hrs): 05/18/18 09:45 Sputum Gram Stain - Final Medications List Reviewed: Yes Assessment And Plan - Current Problems (Diagnosis) (1) Acute bronchitis Onset Date: 06/03/15 Current Visit: No Status: Acute Qualifiers: Bronchitis organism: unspecified organism Qualified Code(s): J20.9 - Acute bronchitis, unspecified (2) Anemia Onset Date: 04/08/16 Current Visit: No Status: Chronic (3) COPD (chronic obstructive pulmonary disease) Onset Date: 09/09/15 Current Visit: No Status: Chronic Qualifiers: COPD type: chronic bronchitis Chronic bronchitis type: simple Qualified Code(s): J41.0 - Simple chronic bronchitis (4) ESRD (end stage renal disease) Onset Date: 04/08/16 Current Visit: No Status: Chronic - Plan a 73-year-old gentleman, PMH x of ESRD on HD [facility]sat from [facility] , COPD, coronary artery disease with cardiomyopathy EF ~40% Pt presented with woresning productive cough for the lst 2wks pt noticed cough last 2wks tried OTC meds with no improvement also had headache and chest pain associated with cough no nausea , vomiting , diarrhea or constipation ESRD will cont HD MWF for now, Op TTsat renal diet renal dose meds Acute bronchitis and Hx of COPD on Abx TTE; LVEF 55% cultures so far -ve influenza -ve F/u procal level agree with pulmonary evalaution as cough persist Anemia on LUANNE 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
[2018-05-20] MEDS ORDERED: PROMETH/COD 6.25/10MG SYRUP 5ML PO PRN (10:31)
[2018-05-20] MEDS: CALCIUM CARBONATE 300 MG PO SCH (12:54)
[2018-05-20] MEDS: Levofloxacin 250mg IV 250 MG/50 ML BAG IV SCH (12:54)
--- NOTE | 2018-05-20 16:11 | P.PN ---
Subjective Date of Service: 05/20/18 Chief Complaint: SOB , productive cough Patient seen at bedside with RN. Chart reviewed. Case discussed with patient at bedside. Review of Systems 10-point ROS is otherwise unremarkable Physical Examination - Vital Signs Temperature: 98.3 F Blood Pressure: 125/58 Pulse: 71 Respirations: 20 Pulse Ox (%): 97 - Physical Exam General: Alert, In no apparent distress HEENT: Atraumatic, PERRLA, EOMI Neck: Supple, JVD not distended Respiratory: Normal air movement, Expiratory wheezes, Inspiratory wheezes Cardiovascular: Regular rate/rhythm, Normal S1 S2 Gastrointestinal: Normal bowel sounds, No tenderness Musculoskeletal: No tenderness Integumentary: No rashes Neurological: Normal speech, Normal tone, Normal affect Lymphatics: No axilla or inguinal lymphadenopathy - Studies Laboratory Data (last 24 hrs) 05/20/18 06:01: Sodium 131 L, Potassium 4.7, BUN 78 H, Creatinine 12.60 H* D, Glucose 255 H, Total Bilirubin 0.9, AST 6 L, ALT 18, Alkaline Phosphatase 87 05/20/18 06:01: WBC 7.6, Hgb 10.2 L, Hct 29.0 L, Plt Count 238 Microbiology Data (last 24 hrs): 05/18/18 09:45 Sputum Gram Stain - Final Medications List Reviewed: Yes Assessment And Plan - Current Problems (Diagnosis) (1) Syncope Current Visit: Yes Status: Acute Plan: Most Likely Vasovagal 2.2 to Cough -PT and OT consulted. -fall precaution Qualifiers: Syncope type: vasovagal syncope Qualified Code(s): R55 - Syncope and collapse (2) Acute bronchitis Onset Date: 06/03/15 Current Visit: No Status: Acute Plan: Acute bronchitis with acute cough and worsening. -Started on Duonebs, steriods and IV abx. -Sputum Culture negative thus far -Pulmonology consulted. Appreciated Reccs -Steriods and Promethesen with Codiene -Pending Improvement Qualifiers: Bronchitis organism: unspecified organism Qualified Code(s): J20.9 - Acute bronchitis, unspecified (3) CHF (congestive heart failure) Onset Date: 09/09/15 Current Visit: No Status: Acute Plan: Patient complaining about their and with coughing along with bilateral lower extremity swelling -ECHO WNL with Diastolic Dysfunction -On bb for now doing well Qualifiers: Qualified Code(s): I50.21 - Acute systolic (congestive) heart failure (4) COPD (chronic obstructive pulmonary disease) Onset Date: 09/09/15 Current Visit: No Status: Chronic Plan: COPD with acute bronchitis -On duonebs Steroids and Abx for now Qualifiers: COPD type: chronic bronchitis Chronic bronchitis type: simple Qualified Code(s): J41.0 - Simple chronic bronchitis (5) ESRD (end stage renal disease) Onset Date: 04/08/16 Current Visit: No Status: Chronic Plan: Will get hemodialysis here in the hospital (6) Hypertension Onset Date: 05/18/18 Current Visit: Yes Status: Acute Plan: Restart on home medication Qualifiers: Hypertension type: essential hypertension Qualified Code(s): I10 - Essential (primary) hypertension (7) Diabetes Onset Date: 09/03/16 Current Visit: No Status: Chronic Plan: Insulin sliding scale Qualifiers: Diabetes mellitus type: type 2 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
[2018-05-20] MEDS: ATORVASTATIN 40 MG TAB PO SCH (21:37)
[2018-05-20 23:12] VITALS: O2SAT 96
[2018-05-20] MEDS: ONDANSETRON 4 MG/2 ML VIAL IV PRN (23:53)
[2018-05-21 05:39] LABS: Magnesium 2.4 mg/dL (1.8-2.4); Potassium 4.8 mmol/L (3.5-5.1)
[2018-05-21] MEDS: CARVEDILOL 12.5 MG TAB PO SCH (08:49)
[2018-05-21] MEDS: BISACODYL E.C. 5 MG TAB PO SCH (08:49)
[2018-05-21 08:51] VITALS: BP 109/52
[2018-05-21] MEDS: APIXABAN 2.5 MG TABLET PO SCH (08:56)
[2018-05-21] MEDS: INSULIN -REGULAR HUMAN 50 UNIT/0.5 ML ML SQ SCH (08:56)
[2018-05-21] MEDS: PANTOPRAZOLE 40MG TABLET PO SCH (08:56)
[2018-05-21] MEDS ORDERED: predniSONE 10 MG TAB PO SCH (09:00)
[2018-05-21 09:46] VITALS: TEMP 99
--- NOTE | 2018-05-21 09:52 | P.PN ---
Subjective Date of Service: 05/21/18 Chief Complaint: SOB , productive cough Pt with ERSD and COPD Improving Bcx: moraxella catarrhalis , sensitive to cefuroxime cleared for discharge from nephrology point of view Next HD on Wednesday as an OP fluid restriction Physical Examination - Vital Signs Temperature: 99.0 F Blood Pressure: 109/52 Pulse: 70 Respirations: 20 Pulse Ox (%): 95 - Physical Exam General: In no apparent distress, Oriented x3 Neck: Supple, Without JVD or thyroid abnormality Respiratory: Clear to auscultation bilaterally Cardiovascular: No edema, Regular rate/rhythm, Normal S1 S2 Gastrointestinal: Normal bowel sounds, Soft and benign - Studies Microbiology Data (last 24 hrs): 05/18/18 09:45 Sputum Gram Stain - Final Medications List Reviewed: Yes Assessment And Plan - Current Problems (Diagnosis) (1) Acute bronchitis Onset Date: 06/03/15 Current Visit: No Status: Acute Qualifiers: Bronchitis organism: unspecified organism Qualified Code(s): J20.9 - Acute bronchitis, unspecified (2) Anemia Onset Date: 04/08/16 Current Visit: No Status: Chronic (3) COPD (chronic obstructive pulmonary disease) Onset Date: 09/09/15 Current Visit: No Status: Chronic Qualifiers: COPD type: chronic bronchitis Chronic bronchitis type: simple Qualified Code(s): J41.0 - Simple chronic bronchitis (4) ESRD (end stage renal disease) Onset Date: 04/08/16 Current Visit: No Status: Chronic - Plan a 73-year-old gentleman, PMH x of ESRD on HD TTsat from [facility] , COPD, coronary artery disease with cardiomyopathy EF ~40% Pt presented with woresning productive cough for the lst 2wks pt noticed cough last 2wks tried OTC meds with no improvement also had headache and chest pain associated with cough no nausea , vomiting , diarrhea or constipation ESRD will cont HD MWF for now, Op TTsat renal diet renal dose meds can resume HD next Wednesday as an OP bacteremia Bcx: moraxella catarrhalis , sensitive to cefuroxime need pulmonary and ENT f/u as an Op Anemia on LUANNE 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
--- NOTE | 2018-05-21 10:40 | P.DS ---
Admission Date: 05/20/18 Discharge Date: 05/21/18 Disposition: ROUTINE DISCHARGE Discharge Condition: GOOD Reason for Admission: SOB , productive cough Consultations: Pulmonology - Problems (1) Syncope Current Visit: Yes Status: Resolved Qualifiers: Syncope type: vasovagal syncope Qualified Code(s): R55 - Syncope and collapse (2) Acute bronchitis Onset Date: 06/03/15 Current Visit: No Status: Acute Qualifiers: Bronchitis organism: other organism Qualified Code(s): J20.8 - Acute bronchitis due to other specified organisms (3) CHF (congestive heart failure) Onset Date: 09/09/15 Current Visit: No Status: Chronic Qualifiers: Qualified Code(s): I50.21 - Acute systolic (congestive) heart failure (4) COPD (chronic obstructive pulmonary disease) Onset Date: 09/09/15 Current Visit: No Status: Chronic Qualifiers: COPD type: chronic bronchitis Chronic bronchitis type: mixed simple and mucopurulent Qualified Code(s): J41.8 - Mixed simple and mucopurulent chronic bronchitis (5) ESRD (end stage renal disease) Onset Date: 04/08/16 Current Visit: No Status: Chronic (6) Hypertension Onset Date: 05/18/18 Current Visit: Yes Status: Chronic Qualifiers: Hypertension type: essential hypertension Qualified Code(s): I10 - Essential (primary) hypertension (7) Diabetes Onset Date: 09/03/16 Current Visit: No Status: Chronic Qualifiers: Diabetes mellitus type: type 2 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: with radar tester use Diabetes mellitus complication status: with kidney complications Diabetes mellitus complication detail: with chronic kidney disease Chronic kidney disease stage: on chronic dialysis Qualified Code(s) : E11.22 - Type 2 diabetes mellitus with diabetic chronic kidney disease; N18.6 - End stage renal disease; 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 Patient stated that he has been noticing that his cough and orthopnea has been getting worse progressively and thus he decided to come to the ER. Secondary to his cough he has also started to have some chest pain in the rib area and he is also having headaches as well. Cough is productive in nature and he brings up clear sputum with now than when it initially started. Patient denies having any fever should vomiting or any other associated symptoms at this time. Patient states that he has been doing fairly well until this cough started this even. Patient states that at night time he is unable to lay flat who has noticed that his speech has swollen bilaterally as well. Hospital Course: Overall During hospital Stay patient remained stable Pt was admitted to the hospital for acute bronchitis and Syncopal episode. Patient was initially found to have refractory cough which was causing him to have vasovagal symptoms and syncope eventually. Chest x-ray and CT scan was done here in the hospital due to chronic history of asbestos exposure along with COPD. Chest x-ray and chest CT were negative for any acute abnormality. For his acute bronchitis patient was kept on duo nebs, steroids, antibiotics and promethazine with codeine. Blood cultures in the ER were collected which was positive for Moraxella. Patient most likely has chronic bronchitis with acute exacerbation secondary to bacterial infection. Patient had marked improvement in his symptoms and thus was discharged home under stable condition with prescription for antibiotics. Patient was also found to have syncopal episode while here in the hospital which was most likely secondary to vasovagal as mentioned before. Patient was also found to have volume overload due to end- stage renal disease and possibly diastolic dysfunction. Patient was given dialysis here in the hospital and had marked improvement in his symptoms as well. Patient then was discharged home and was asked to resume his dialysis schedule once he is at home. Vital Signs/Physical Exam: Temp Pulse Resp BP Pulse Ox 99.0 F 70 20 109/52 L 95 05/21/18 09:51 05/21/18 09:51 05/21/18 09:51 05/21/18 09:51 05/21/18 09:51 General: Alert, In no apparent distress HEENT: Atraumatic, PERRLA, EOMI Neck: Supple, JVD not distended Respiratory: Clear to auscultation bilaterally, Normal air movement Cardiovascular: Regular rate/rhythm, Normal S1 S2 Gastrointestinal: Normal bowel sounds, No tenderness Musculoskeletal: No tenderness Integumentary: No rashes Neurological: Normal speech, Normal tone, Normal affect Lymphatics: No axilla or inguinal lymphadenopathy Laboratory Data at Discharge: WBC 7.6 K/uL (4.3-10.9) 05/20/18 06:01 Hgb 10.2 g/dL (13.6-17.9) L 05/20/18 06:01 Hct 29.0 % (39.6-49.0) L 05/20/18 06:01 Plt Count 238 K/uL (152-406) 05/20/18 06:01 PT 13.8 SECONDS (9.5-12.5) H 05/17/18 10:25 INR 1.17 05/17/18 10:25 Sodium 131 mmol/L (136-145) L 05/21/18 04:23 Potassium 4.8 mmol/L (3.5-5.1) 05/21/18 04:23 BUN 64 mg/dL (7-18) H 05/21/18 04:23 Creatinine 10.70 mg/dL (0.55-1.3) H* D 05/21/18 04:23 Glucose 246 mg/dL (74-106) H 05/21/18 04:23 Phosphorus Cancelled 05/18/18 07:00 Magnesium 2.4 mg/dL (1.8-2.4) 05/21/18 04:23 Total Bilirubin 0.9 mg/dL (0.2-1.0) 05/20/18 06:01 AST 6 U/L (15-37) L 05/20/18 06:01 ALT 18 U/L (12-78) 05/20/18 06:01 Alkaline Phosphatase 87 U/L (45-117) 05/20/18 06:01 Home Medications: Amlodipine Besylate [Norvasc] 5 mg PO DAILY 05/17/18 Apixaban [Eliquis *] 2.5 mg PO DAILY 05/17/18 Atorvastatin Calcium [Lipitor] 40 mg PO DAILY 05/17/18 Bisacodyl [Gentle Laxative] 5 mg PO DAILY 05/17/18 Calcium Carbonate [Tums X-Str] 300 mg PO DAILY 05/17/18 Carvedilol [Coreg*] 12.5 mg PO BID 05/17/18 Docusate [Colace Cap*] 250 mg PO DAILY 05/17/18 Insulin Glargine Human [Lantus*] 50 units SQ DAILY 12/18/18 Vit A/Vit C/Vit E/Zinc/Copper [Preservision Areds Softgel] 1 cap PO DAILY glipiZIDE [Glipizide] 5 mg PO DAILY 05/17/18 Cefuroxime Axetil [Cefuroxime] 500 mg PO BID #14 tab 05/21/18 Fluticasone/Salmeterol [Advair Hfa 230-21 Mcg Inhaler] 8 gm IH BID #1 aer.w.adap 05/21/18 Pantoprazole [Protonix Tab*] 40 mg PO BIDAC #30 tab 05/21/18 Promethazine HCl/Codeine [Prometh-Codein 6.25-10 mg/5 ml] 5 ml PO DAILY PRN #30 syrup 05/21/18 predniSONE [Deltasone*] 10 mg PO DAILY #5 tab 05/21/18 New Medications: Cefuroxime Axetil [Cefuroxime] 500 mg PO BID #14 tab Fluticasone/Salmeterol [Advair Hfa 230-21 Mcg Inhaler] 8 gm IH BID #1 aer.w.adap Pantoprazole [Protonix Tab*] 40 mg PO BIDAC #30 tab predniSONE [Deltasone*] 10 mg PO DAILY #5 tab Promethazine HCl/Codeine [Prometh-Codein 6.25-10 mg/5 ml] 5 ml PO DAILY PRN #30 syrup PRN Reason: Coughing Diet: Regular Activity: Ad inez Followup: Jaron Hoang MD [ACTIVE - CAN ADMIT] - 1 Week
[2018-05-21] MEDS ORDERED: PNEUMOCOCCAL VACCINE 0.5 ML IMVAC ONE (12:00)
== END 2018-05-21 11:28 | disposition home health service (06) | DRG 202 ==
LOC: ER 09:37 → ERHOLD 13:51 → 4TH 14:52 → OBSVTOIN 05-20 09:56
PROVIDERS: ADMIT Family Medicine; ATTEND Family Medicine
PROC: 5A1D70Z Performance of Urinary Filtration, Intermittent, Less than 6 Hours Per Day (ICD-10-PCS; principal; 2018-05-17)
PROC: 5A1D70Z Performance of Urinary Filtration, Intermittent, Less than 6 Hours Per Day (ICD-10-PCS; 2018-05-18)
PROC: 5A1D70Z Performance of Urinary Filtration, Intermittent, Less than 6 Hours Per Day (ICD-10-PCS; 2018-05-20)
DX: J20.8 Acute bronchitis due to other specified organisms (principal); N18.6 End stage renal disease; I50.23 Acute on chronic systolic (congestive) heart failure; J44.0 Chronic obstructive pulmonary disease with (acute) lower respiratory infection; I13.2 Hypertensive heart and chronic kidney disease with heart failure and with stage 5 chronic kidney disease, or end stage renal disease; N25.81 Secondary hyperparathyroidism of renal origin; I42.9 Cardiomyopathy, unspecified; D64.9 Anemia, unspecified; E11.22 Type 2 diabetes mellitus with diabetic chronic kidney disease; Z99.2 Dependence on renal dialysis; Z79.84 Long term (current) use of oral hypoglycemic drugs; E78.5 Hyperlipidemia, unspecified; Z87.891 Personal history of nicotine dependence; W18.39XA Other fall on same level, initial encounter; Y93.89 Activity, other specified; Y92.230 Patient room in hospital as the place of occurrence of the external cause; R55 Syncope and collapse; D50.9 Iron deficiency anemia, unspecified; I25.10 Atherosclerotic heart disease of native coronary artery without angina pectoris; R91.1 Solitary pulmonary nodule; J41.8 Mixed simple and mucopurulent chronic bronchitis; Z77.090 Contact with and (suspected) exposure to asbestos
CPT/HCPCS: 36415; 70450; 71046; 71250; 80048; 80053; 80076; 82728; 82962; 83540; 83735; 83880; 83970; 84100; 84466; 84484; 85025; 85610; 87040; 87070; 87184; 87205; 87804; 90670; 90935; 93005; 93306; 94760; 97162; 99285; G0009; G0257; G0378; J0885; J2405; J2916; J7512; Q4081

== ENCOUNTER 2018-08-02 09:38 | Observation (INO) | payer OTHER, BC ==
[2018-08-02 10:16] LABS: Absolute Lymphocytes (CBC) 1.8 K/uL (0.7-4.9); Absolute Neutrophil 4.2 K/uL (1.8-8.0); Basophils % 0.7 % (0-1.3); Eosinophils % 3.9 % (0-4.4); Hematocrit 32.8 % (39.6-49.0); Lymphocytes % 24.2 % (15.3-44.8); MPV 7.4 fL (7.6-11.3); Monocytes % 13.6 % (3.3-12.3); RBC Red Blood Cell Count 3.14 M/uL (4.33-5.43)
[2018-08-02] MEDS ORDERED: LEVALBUTEROL 1.25 MG/3 ML NEB ONE (10:16)
--- NOTE | 2018-08-02 10:30 | EKG ---
Test Date: 2018-08-02 Test Time: 09:52:02 Track Dresser: ZEFERINO MEASUREMENT RESULTS: Intervals: Rate: 68 AL: 194 QRSD: 174 QT: 472 QTc: 501 Boyd: P: 48 AL: 194 QRS: -59 T: 3 INTERPRETIVE STATEMENTS: Normal sinus rhythm Right bundle branch block Left anterior fascicular block Bifascicular block Abnormal ECG Compared to ECG 05/17/2018 10:27:18 Fusion complex(es) no longer present Myocardial infarct finding no longer present Bifascicular block still present Electronically Signed On 08-02-18 10:29:09 CPC by Francisco Saucedo
[2018-08-02] MEDS ORDERED: METHYLPREDNISOLONE 125 MG INJ ONE (10:31)
--- NOTE | 2018-08-02 10:45 | RAD REPORT ---
EXAM DESCRIPTION: Tony Single View08/02/2018 10:12 am CLINICAL HISTORY: Cough COMPARISON: April 2018 FINDINGS: The lungs appear clear of acute infiltrate. The heart is mildly enlarged IMPRESSION: No acute abnormalities displayed
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
--- NOTE | 2018-08-02 11:38 | EDPHYS ---
Physician Documentation [facility] Name: Guzmna Mayers Age: 73 yrs Sex: Male : 1945 Arrival Date: 08/02/2018 Time: 09:40 Bed 23 Private MD: Eliecer Brandon ED Physician [address] HPI: 08/02 10:02 This 73 yrs old Male presents to ER via Ambulatory with complaints of Cough, rn Shortness Of Breath. 10:02 Onset: The symptoms/episode began/occurred 4 day(s) ago. Severity of symptoms: At their rn worst the symptoms were mild, in the emergency department the symptoms are unchanged. Modifying factors: The symptoms are alleviated by nothing, the symptoms are aggravated by nothing. The patient has experienced similar episodes in the past. The patient has been recently seen by a physician:. Reports cough, fever, sob, for 4 days, seen by his kidney doctor, put on levaquin, reports feels worse, + trouble sleeping and walking. . Historical: - Allergies: 10:39 Codeine; ls4 10:39 GABAPENTIN; ls4 - Home Meds: 10:39 aspirin 81 mg Oral chew 1 tab once daily [Active]; atorvastatin 40 mg Oral tab 1 tab ls4 once daily [Active]; bumetanide 2 mg Oral tab 2 tab once daily [Active]; carvedilol 25 mg Oral tab 1 tab 2 times per day [Active]; cefuroxime axetil 250 mg Oral tab 1 tab 2 times per day [Active]; Centrum Silver 400-250 mcg Oral chew daily [Active]; ferrous sulfate 325 mg (65 mg iron) Oral TbEC three times a day [Active]; gabapentin Oral [Active]; glipizide 5 mg Oral tab 1 tab once daily [Active]; hydralazine 100 mg Oral tab 1 tab 2 times per day [Active]; isosorbide mononitrate 30 mg Oral Tb24 1 tab once daily [Active]; Lantus 100 unit/mL Sub-Q soln 80 unit daily [Active]; metolazone 2.5 mg Oral tab 1 tab once daily [Active]; montelukast 10 mg Oral tab 1 tab once daily [Active]; PreserVision AREDS 14,320-226-200 mmpe-qp-bidd Oral cap [Active]; spironolactone 25 mg Oral tab 1 tab once daily [Active]; Valtrex Oral [Active]; - PMHx: 10:39 ADD/ADHD; CHF; CKD; COPD; Diabetes - IDDM; Dialysis; dialysis tues, thurs, sat, uses o2 ls4 when sleeping.; High Cholesterol; HTN; Hypertension; - PSHx: 10:39 L foot toes amputation; L upper arm dialysis fistula; mulitple skin grafts to zack arms ls4 and legs from electric persaud; - Immunization history:: Adult Immunizations up to date. - Social history:: Smoking status: Patient/guardian denies using tobacco. - Ebola Screening: : Patient negative for fever greater than or equal to 101.5 degrees Fahrenheit, and additional compatible Ebola Virus Disease symptoms Patient denies exposure to infectious person Patient denies travel to an Ebola-affected area in the 21 days before illness onset No symptoms or risks identified at this time. - Family history:: not pertinent. - Hospitalizations: : No recent hospitalization is reported. ROS: 10:02 Constitutional: + fever Eyes: Negative for injury, pain, redness, and discharge, ENT: + rn congestion and sore throat Neck: Negative for injury, pain, and swelling, Cardiovascular: Negative for chest pain, palpitations, and edema, Respiratory: + sob and cough Abdomen/GI: Negative for abdominal pain, nausea, vomiting, diarrhea, and constipation, MS/Extremity: Negative for injury and deformity, Skin: Negative for injury, rash, and discoloration, Neuro: + generalized weakness Exam: 10:02 Constitutional: This is a well developed, well nourished patient who is awake, alert, rn and in no acute distress. Head/Face: Normocephalic, atraumatic. Eyes: Pupils equal round and reactive to light, extra-ocular motions intact. Lids and lashes normal. Conjunctiva and sclera are non-icteric and not injected. Cornea within normal limits. Periorbital areas with no swelling, redness, or edema. ENT: MMM, no stridor Neck: Trachea midline, no masses Cardiovascular: Regular rate and rhythm, no murmur Respiratory: + diminished at bases bilaterally with exp wheezing, no retractions, + mild tachypnea Skin: Warm, dry MS/ Extremity: Pulses equal, no cyanosis. 1+ pitting edema bilateral lower ext, equal Neuro: Awake and alert, GCS 15, oriented to person, place, time, and situation. Vital Signs: 10:15 BP 136 / 54; Pulse 64; Resp 20; Temp 98.4; Pulse Ox 98% on R/A; Weight 93.89 kg; Pain ls4 0/10; 11:38 BP 131 / 57; Pulse 68; Resp 16; Temp 98.3; Pulse Ox 100% ; Pain 0/10; ls4 12:54 BP 122 / 57; Pulse 69; Resp 16; Pulse Ox 94% on R/A; Pain 0/10; ls4 MDM: 09:46 Patient medically screened. rn 11:34 Differential Diagnosis: Bronchitis Influenza Upper Respiratory Infection Viral Syndrome rn Pneumonia. Data reviewed: vital signs, nurses notes, lab test result(s), EKG, radiologic studies, plain films, and as a result, I will admit patient. Counseling: I had a detailed discussion with the patient and/or guardian regarding: the historical points, exam findings, and any diagnostic results supporting the discharge/admit diagnosis, lab results, radiology results, the need for further work-up and treatment in the hospital. Response to treatment: the patient's symptoms have mildly improved after treatment, and as a result, I will admit patient. Admission orders: after a detailed discussion of the patient's condition and case, the admit orders are written by me. ED course: Pt still tachypneic, reports sob just sitting there, increased with exertion, neg cxr, neg flu, will admit for COPD exacerbation, elevated procalcitonin, symptoms most likely viral and has been on levaquin this week without improvement. . 08/02 09:51 Order name: Blood Culture Adult (2) rn 08/02 09:51 Order name: BMP; Complete Time: 11:00 rn 08/02 09:51 Order name: CBC with Diff; Complete Time: 10:38 rn 08/02 09:51 Order name: NT PRO-BNP; Complete Time: 11:00 rn 08/02 09:51 Order name: Procalcitonin; Complete Time: 11:00 rn 08/02 09:51 Order name: Flu; Complete Time: 10:38 rn 08/02 09:51 Order name: XRAY CXR (1 view); Complete Time: 10:49 rn 08/02 09:51 Order name: EKG; Complete Time: 09:52 rn 08/02 09:51 Order name: Cardiac monitoring; Complete Time: 10:14 rn 08/02 09:51 Order name: EKG - Nurse/Tech; Complete Time: 10:14 rn 08/02 09:51 Order name: IV Saline Lock; Complete Time: 10:14 rn 08/02 11:36 Order name: Sputum Culture rn 08/02 09:51 Order name: Labs collected and sent; Complete Time: 10:14 rn 08/02 09:51 Order name: O2 Per Protocol; Complete Time: 10:14 rn 08/02 09:51 Order name: O2 Sat Monitoring; Complete Time: 10:14 rn Administered Medications: 10:01 Drug: Xopenex (3) 1.25 mg Route: Inhalation; ls4 11:30 Follow up: Response: No adverse reaction; Marked relief of symptoms ls4 10:15 Drug: SOLU-Medrol 125 mg Route: IVP; Site: right antecubital; ls4 10:45 Follow up: Response: No adverse reaction; Marked relief of symptoms ls4 Disposition: 08/02/18 11:37 Hospitalization ordered by Andrez Ace for Observation. Preliminary diagnosis are Chronic obstructive pulmonary disease with (acute) exacerbation, End stage renal disease, Dyspnea, unspecified. - Bed requested for Telemetry/MedSurg (observation). - Status is Observation. ls4 - Condition is Stable. - Problem is new. - Symptoms have improved. UTI on Admission? No Signatures: Dispatcher [employer] EDMS Maira Wise RN RN ch Woody, Diana, RN RN dw Nieto, Roman, MD MD rn Stewart, Lisa, RN RN ls4 Corrections: (The following items were deleted from the chart) 10:39 09:52 Allergies: Codeine; ls4 10:39 09:52 Allergies: GABAPENTIN; ch ls4 10:39 09:52 PMHx: ADD/ADHD; ch ls4 10:39 09:52 PMHx: CHF; ch ls4 10:39 09:52 PMHx: CKD; ch ls4 10:39 09:52 PMHx: COPD; ch ls4 10:39 09:52 PMHx: Diabetes - IDDM; ch ls4 10:39 09:52 PMHx: Dialysis; ch ls4 10:39 09:52 PMHx: dialysis tues, thurs, sat, uses o2 when sleeping.; ch ls4 10:39 09:52 PMHx: High Cholesterol; ch ls4 10:39 09:52 PMHx: HTN; ch ls4 10: 09:52 PMHx: Hypertension; ch ls4 10: 09:52 PSHx: L foot toes amputation; ch ls4 10: 09:52 PSHx: L upper arm dialysis fistula; ch ls4 10:39 09:52 PSHx: mulitple skin grafts to zack arms and legs from electric persaud; ch ls4 12:40 11:37 Hospitalization Ordered by Andrez Ace DO for Observation. Preliminary dw diagnosis is Chronic obstructive pulmonary disease with (acute) exacerbation; End stage renal disease; Dyspnea, unspecified. Bed requested for Telemetry/MedSurg (observation). Status is Observation. Condition is Stable. Problem is new. Symptoms have improved. UTI on Admission? No. rn 14:03 12:40 08/02/2018 11:37 Hospitalization Ordered by Andrez Ace DO for Observation. ls4 Preliminary diagnosis is Chronic obstructive pulmonary disease with (acute) exacerbation; End stage renal disease; Dyspnea, unspecified. Bed requested for Telemetry/MedSurg (observation). Status is Observation. Condition is Stable. Problem is new. Symptoms have improved. UTI on Admission? No. dw
[2018-08-02] MEDS ORDERED: ALBUTEROL 2.5 MG/3 ML NEB SOL NEB PRN (14:00)
[2018-08-02] MEDS ORDERED: GLUCAGON 1 MG/VIAL IM PRN (14:00)
[2018-08-02] MEDS ORDERED: BENZONATATE 100 MG CAP PO PRN (14:00)
[2018-08-02] MEDS ORDERED: IPRATROPIUM BROM 0.5MG/2.5ML NEB PRN (14:00)
[2018-08-02] MEDS ORDERED: ACETAMINOPHEN 500 MG TAB PO PRN (14:00)
[2018-08-02] MEDS ORDERED: D50W 25 GM/50 ML SYRINGE IV PRN (14:00)
[2018-08-02] MEDS ORDERED: ONDANSETRON 4 MG/2 ML VIAL IV PRN (14:00)
[2018-08-02] MEDS: Levofloxacin 250mg IV 250 MG/50 ML BAG IV SCH (14:34)
[2018-08-02] MEDS ORDERED: DERMABOND SKIN ADHESIVE TOP ONE (14:53)
--- NOTE | 2018-08-02 15:53 | P.HP ---
Certification for Inpatient Patient admitted to: Observation With expected LOS: <2 Midnights Patient will require the following post-hospital care: None Practitioner: I am a practitioner with admitting privileges, knowledge of patient current condition, hospital course, and medical plan of care. Services: Services provided to patient in accordance with Admission requirements found in Title 42 Section 412.3 of the Code of Federal Regulations Patient History Date of Service: 08/02/18 Primary Care Provider: Dr. Real; Nephrology-Dr. Sanchez Reason for admission: Shortness of breath History of Present Illness: 73-year-old male presented to emergency room with cough, congestion over the last 4 days. Patient was given antibiotic therapy by his behavioral sciences department chair. Patient with history of COPD, end-stage renal disease on hemodialysis, diabetes, hypertension and atrial fibrillation. Patient came to the ER due to no significant improvement. Patient denies any significant fever. Wheezing noted. In the ER patient evaluated. Patient slightly tachypneic upon initial evaluation. Patient was given breathing treatments without significant improvement. Chest x-ray unremarkable for pneumonia. Influenza A negative. Pro calcitonin slightly elevated. White count 7.3, hemoglobin 11. Patient admitted for further evaluation and treatment. When I saw the patient ER, he did not appear septic. Room-air saturations within normal range but noticeable wheezing noted. Allergies codeine Allergy (Verified 11/27/16 08:50) Anaphylaxis Home medications list reviewed: Yes Home Medications: Amlodipine Besylate [Norvasc] 10 mg PO DAILY 05/17/18 Apixaban [Eliquis *] 2.5 mg PO DAILY 05/17/18 Atorvastatin Calcium [Lipitor] 40 mg PO BEDTIME 05/17/18 Bisacodyl [Gentle Laxative] 5 mg PO DAILY 05/17/18 Calcium Carbonate [Tums X-Str] 3 tab PO TID 05/17/18 Carvedilol [Coreg*] 12.5 mg PO BID 05/17/18 Docusate [Colace Cap*] 250 mg PO DAILY 05/17/18 Insulin Glargine Human [Lantus*] 50 units SQ DAILY 05/17/18 Vit A/Vit C/Vit E/Zinc/Copper [Preservision Areds Softgel] 1 cap PO DAILY glipiZIDE [Glipizide] 5 mg PO DAILY 05/17/18 - Past Medical/Surgical History Has patient received pneumonia vaccine in the past: Yes Diabetic: Yes -: Hypertension -: Hyperlipidemia -: Diabetes type 2, insulin dependent -: End-stage renal disease, hemodialysis-Wednesday, and Saturdays -: Diastolic CHF -: COPD -: skin graft for elctrical persaud - BLE 1970s -: Right shoulder surgery -: bilateral leg surgery Psychosocial/ Personal History: Patient is . He has 3 children - Family History Family History: Reviewed- Non-Contributory - Family History mother and father Notes: adopted - Social History Smoking Status: Former smoker Alcohol use: No CD- Drugs: No Caffeine use: Yes Place of Residence: Home Review of Systems General: Weakness, As per HPI Eyes: Unremarkable ENT: Nose Congestion, As per HPI Respiratory: Cough, Shortness of Breath, SOB with Excertion, Wheezing, As per HPI Cardiovascular: Unremarkable Gastrointestinal: Unremarkable Genitourinary: Unremarkable Musculoskeletal: Pedal edema, As per HPI Integumentary: Unremarkable Neurological: Unremarkable Lymphatics: Unremarkable Physical Examination - Vital Signs Temperature: 98.1 F Blood Pressure: 135/61 Pulse: 75 Respirations: 16 Pulse Ox (%): 92 - Physical Exam General: Alert, In no apparent distress, Oriented x3, Cooperative HEENT: Atraumatic, Normocephalic, Other (Increased mucus production) Neck: Supple Respiratory: Expiratory wheezes, Inspiratory wheezes Cardiovascular: Normal pulses, Regular rate/rhythm Gastrointestinal: Normal bowel sounds, Soft and benign, Non-distended Musculoskeletal: No erythema, No tenderness, No warmth Integumentary: No erythema, No warmth, No cyanosis, Tenderness/swelling (1- 2+ pitting edema to the lower extremities) Neurological: Normal speech, Normal strength at 5/5 x4 extr, Normal tone, Normal affect - Studies Laboratory Data (last 24 hrs) 08/02/18 10:02: WBC 7.3, Hgb 11.1 L, Hct 32.8 L, Plt Count 257 08/02/18 10:02: Sodium 139, Potassium 5.0, BUN 63 H, Creatinine 11.00 H*, Glucose 141 H Microbiology Data (last 24 hrs): 08/02/18 10:05 Nasopharnyx Influenza Type A Antigen Screen - Final 08/02/18 10:05 Nasopharnyx Influenza Type B Antigen Screen - Final Assessment and Plan - Plan Impression: Shortness of breast secondary to COPD exacerbation complicated with chronic diastolic CHF End-stage renal disease on hemodialysis Diabetes mellitus type 2, insulin dependent Hypertension Atrial fibrillation on chronic anti coagulation therapy Plan: Shortness of breast secondary to COPD exacerbation complicated with chronic diastolic CHF: Spoke with nephrology. Patient will be started on COPD medication including steroids and COPD medication. Will maintain sats above 90% . Will reassess tomorrow. Will continue with Levaquin as this was started as an outpatient. Will monitor closely. Recheck chest x-ray in the morning. Anticipate discharge in next 24 hr. Patient will require dialysis today. End-stage renal disease on hemodialysis: Nephrology consulted. Patient will receive dialysis Diabetes mellitus type 2, insulin dependent: Will provide sliding scale. Hypertension: Continue with home medication Atrial fibrillation on chronic anti coagulation therapy: Continue home medication. - Advance Directives Does patient have a Living Will: No Does patient have a Durable POA for Healthcare: No - Code Status/Comfort Care Code Status Assessed: Yes (Patient is full code.) Time Spent Managing Pts Care (In Minutes): 55
[2018-08-02] MEDS ORDERED: NA CHLORIDE 0.9% 1,000 ML IV PRN (16:33)
[2018-08-02] MEDS ORDERED: ALBUMIN HUMAN 25% 50 ML IV SCH (17:00)
[2018-08-02] MEDS: INSULIN -REGULAR HUMAN 50 UNIT/0.5 ML ML SQ SCH ×2 (17:05→21:00)
[2018-08-02] MEDS: CARVEDILOL 12.5 MG TAB PO SCH (17:06)
[2018-08-02] MEDS ORDERED: ATORVASTATIN 40 MG TAB PO SCH (21:00)
[2018-08-02] MEDS ORDERED: APIXABAN 2.5 MG TABLET PO SCH (21:00)
[2018-08-02] MEDS: CALCIUM CARBONATE PO SCH (21:00)
[2018-08-02] MEDS ORDERED: ARFORMOTEROL TARTRATE 15 MCG/2 ML VIAL.NEB ONE (22:00)
[2018-08-02] MEDS: ARFORMOTEROL TARTRATE 15 MCG/2 ML VIAL.NEB NEB SCH (22:00)
[2018-08-02] MEDS: GUAIFENESIN 600 MG SA TAB PO SCH (22:07)
[2018-08-02] MEDS: FAMOTIDINE 20 MG TAB PO SCH (22:07)
[2018-08-02] MEDS: predniSONE 20 MG TAB PO SCH (22:08)
[2018-08-03 04:27] LABS: Absolute Lymphocytes (CBC) 0.8 K/uL (0.7-4.9); Absolute Monocytes 0.2 K/uL (0.1-1.3); Absolute Neutrophil 7.8 K/uL (1.8-8.0); Basophils % 0.1 % (0-1.3); Lymphocytes % 9.5 % (15.3-44.8); MPV 7.8 fL (7.6-11.3); Monocytes % 2.5 % (3.3-12.3); RBC Red Blood Cell Count 3.06 M/uL (4.33-5.43)
[2018-08-03 04:29] LABS: Urine Appearance CLOUDY; Urine Bilirubin NEGATIVE (NEG); Urine Blood TRACE (NEG); Urine Color YELLOW; Urine Glucose NEGATIVE (NEG); Urine Protein 1+ (NEG); Urine Urobilinogen 0.2 mg/dL (0.2-1.0)
[2018-08-03 04:31] LABS: Urine Microscopic Reflex ORDER UMIC
[2018-08-03 04:34] VITALS: BMI 27.1
[2018-08-03] MEDS: CARVEDILOL 12.5 MG TAB PO SCH ×2 (05:08→17:17)
[2018-08-03 05:20] LABS: Blood Morphology Comment NOT SEEN (NOT SEEN); Platelet Estimate ADEQ; Urine White Blood Cell Casts OK
[2018-08-03 05:30] LABS: Magnesium 2.4 mg/dL (1.8-2.4); Potassium 4.8 mmol/L (3.5-5.1)
[2018-08-03 05:36] LABS: Urine Bacteria <20 /HPF (NONE SEEN); Urine RBC <5 /HPF (NONE SEEN)
[2018-08-03 05:37] LABS: Urine Culture Reflex Order REFLEXED; Urine Mucus MOD /HPF (NONE SEEN)
[2018-08-03] MEDS ORDERED: INSULIN GLARGINE 100 UNITS/ML SQ SCH (08:00)
[2018-08-03] MEDS: GUAIFENESIN 600 MG SA TAB PO SCH (08:02)
[2018-08-03] MEDS: FAMOTIDINE 20 MG TAB PO SCH (08:02)
[2018-08-03] MEDS: predniSONE 20 MG TAB PO SCH (08:02)
[2018-08-03] MEDS: CALCIUM CARBONATE PO SCH ×2 (08:03→14:00)
[2018-08-03] MEDS: INSULIN -REGULAR HUMAN 50 UNIT/0.5 ML ML SQ SCH ×3 (08:03→17:17)
[2018-08-03] MEDS: ARFORMOTEROL TARTRATE 15 MCG/2 ML VIAL.NEB NEB SCH (08:05)
--- NOTE | 2018-08-03 08:28 | ECHO ---
HEIGHT: 5 ft 10 in WEIGHT: 189 lb 9.6 oz DATE OF STUDY: 08/02/[address]: Andrez Ace DO 2-DIMENSIONAL: YES M.MODE: YES DOPPLER: YES COLOR FLOW: YES TDS: NO PORTABLE: NO DEFINITY: NO BUBBLE STUDY: NO DIAGNOSIS: SHORTNESS OF BREATH, SUSPECT CONGESTIVE HEART FAILURE CARDIAC HISTORY: CATHERIZATION: NO SURGERY: NO PROSTHETIC VALVE: NO PACEMAKER: NO MEASUREMENTS (cm) DIASTOLIC (NORMALS) SYSTOLIC (NORMALS) IVSd 1.1 (0.6-1.2) LA Diam 3.9 (1.9-4.0) LVEF 55% LVIDd 4.9 (3.5-5.7) LVIDs 3.5 (2.0-3.5) %FS 29% LVPWd 1.4 (0.6-1.2) Ao Diam 3.4 (2.0-3.7) 2 DIMENSIONAL ASSESSMENT: RIGHT ATRIUM: NORMAL LEFT ATRIUM: NORMAL RIGHT VENTRICLE: NORMAL LEFT VENTRICLE: NORMAL TRICUSPID VALVE: NORMAL MITRAL VALVE: NORMAL PULMONIC VALVE: NORMAL AORTIC VALVE: NORMAL PERICARDIAL EFFUSION: NONE AORTIC ROOT: NORMAL LEFT VENTRICULAR WALL MOTION: NORMAL DOPPLER/COLOR FLOW: MILD MITRAL REGURGITATION. COMMENTS: NORMAL LEFT VENTRICULAR SIZE AND FUNCTION. MILD MITRAL REGURGITATION. NORMAL RIGHT VENTRICULAR SYSTOLIC PRESSURE. NO WALL MOTION ABNORMALITY. NO EFFUSION. TECHNOLOGIST: Ara PATIÑO
[2018-08-03] MEDS ORDERED: AMLODIPINE 10 MG TAB PO SCH (09:00)
[2018-08-03] MEDS ORDERED: DOCUSATE PO SCH (09:00)
[2018-08-03] MEDS ORDERED: HOME MED 1 EA UNK (Vit A/Vit C/Vit E/Zinc/Copper [Preservision Areds Softgel] 1 CAP) PO SCH (09:00)
[2018-08-03] MEDS ORDERED: DOCUSATE NA 100 MG CAP PO SCH (09:00)
[2018-08-03] MEDS ORDERED: BISACODYL E.C. 5 MG TAB PO SCH (09:00)
[2018-08-03] MEDS ORDERED: APIXABAN 2.5 MG TABLET PO SCH (09:00)
--- NOTE | 2018-08-03 09:55 | RAD REPORT ---
EXAM DESCRIPTION: RAD - Chest Pa And Lat (2 Views) - 08/03/2018 9:35 am CLINICAL HISTORY: follow up COPD, evaluate for pneumonia Chest pain. COMPARISON: Chest Single View dated 08/02/2018; Chest Pa And Lat (2 Views) dated 05/20/2018; Chest Pa And Lat (2 Views) dated 05/19/2018; Chest Pa And Lat (2 Views) dated 05/18/2018; Chest Pa And Lat (2 Views) dated 06/07/2017 FINDINGS: The lungs are hyperexpanded compatible with COPD. No focal infiltrate typical of pneumonia seen. The heart is normal in size. Small hiatal hernia. Bridging osteophytes noted in the thoracic s pine. IMPRESSION: COPD.
--- NOTE | 2018-08-03 12:03 | P.DS ---
Admission Date: 08/02/18 Discharge Date: 08/03/18 Primary Care Provider: Dr. Real; Nephrology-Dr. Sanchez Disposition: ROUTINE DISCHARGE Discharge Condition: GOOD Reason for Admission: Shortness of breath Consultations: Nephrology-Dr. Sanchez Procedures: CXR: COMPARISON: Chest Single View dated 08/02/2018; Chest Pa And Lat (2 Views) dated 05/20/2018; Chest Pa And Lat (2 Views) dated 05/19/2018; Chest Pa And Lat (2 Views) dated 05/18/2018; Chest Pa And Lat (2 Views) dated 06/07/2017 FINDINGS: The lungs are hyperexpanded compatible with COPD. No focal infiltrate typical of pneumonia seen. The heart is normal in size. Small hiatal hernia. Bridging osteophytes noted in the thoracic spine. IMPRESSION: COPD. ECHO: Ejection fraction 55% LEFT VENTRICULAR WALL MOTION: NORMAL DOPPLER/COLOR FLOW: MILD MITRAL REGURGITATION. COMMENTS: NORMAL LEFT VENTRICULAR SIZE AND FUNCTION. MILD MITRAL REGURGITATION. NORMAL RIGHT VENTRICULAR SYSTOLIC PRESSURE. NO WALL MOTION ABNORMALITY. NO EFFUSION. Medical problem list: Shortness of breath secondary to COPD exacerbation complicated with chronic diastolic CHF, oxygen-dependent End-stage renal disease on hemodialysis Diabetes mellitus type 2, insulin dependent Hypertension Atrial fibrillation on chronic anti coagulation therapy Hyperlipidemia Brief History of Present Illness: 73-year-old male presented to emergency room with cough, congestion over the last 4 days. 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 Patient with history of COPD, end-stage renal disease on hemodialysis, diabetes, hypertension and atrial fibrillation. Patient came to the ER due to no significant improvement. Patient denies any significant fever. Wheezing noted. In the ER patient evaluated. Patient slightly tachypneic upon initial evaluation. Patient was given breathing treatments without significant improvement. Chest x-ray unremarkable for pneumonia. Influenza A negative. Pro calcitonin slightly elevated. White count 7.3, hemoglobin 11. Patient admitted for further evaluation and treatment. When I saw the patient ER, he did not appear septic. Room-air saturations within normal range but noticeable wheezing noted. Hospital Course: Patient presented with shortness of breath secondary to COPD exacerbation. Patient also with underlying chronic diastolic CHF. Patient oxygen-dependent. Patient was seen and evaluated. He was treated with steroids and COPD medication. At discharge he is doing well without significant shortness of breath. He is much improved. At discharge he will continue with prednisone 20 mg 1 pill twice daily for 5 days then 1 pill once daily for 5 days. Tessalon Perles 100 mg 3 times a day as needed for cough will also be provided. For his COPD he will continue with Brovana 1 unit dose twice daily and ipratropium 1 unit dose 3 times a day as needed for shortness of breath. Home oxygen will be arranged and continued to maintain sats above 90%. Recommend to follow up with pulmonology as an outpatient to further monitor and address. For his CHF patient will continue with a 1500 cc per day fluid restriction and low-salt diet. He is to monitor his weight daily. If his weight increases by more than 5 lb he is to contact nephrology for further recommendation. Patient with end-stage renal disease on hemodialysis. He receives dialysis every Tuesdays, and Saturdays. Patient received dialysis during his stay. Case discussed with nephrology. Patient will be followed by nephrology. Recommend no further use of nonsteroidal anti-inflammatories. Future medications will need to be renally dosed. Patient with diabetes mellitus type 2, insulin-dependent. This remained stable. At discharge he will continue with Lantus 50 units subcu daily. Patient also takes glipizide 5 mg daily. He is to monitor for hypoglycemia on glipizide. Recommend to maintain blood sugars less 140 fasting and less than 200 after meals. Further adjustment can be done by his PCP. Patient with hypertension. At discharge he will continue the medication Norvasc 5 mg daily and carvedilol 12.5 mg 1 pill twice daily. Recommend maintain blood pressures less 150/80. Further adjustment can be done by his PCP. Patient with atrial fibrillation on chronic anti coagulation therapy. Patient continue with carvedilol 12.5 mg 1 pill twice daily and Eliquis 2.5. Recommend follow up with cardiology as directed. Patient with hyperlipidemia. At discharge he will continue with Lipitor 40 mg daily. Patient likely with underlying obstructive sleep apnea. Recommend to follow up with pulmonology as an outpatient to further evaluate. Patient will need sleep study to further address. Vital Signs/Physical Exam: Temp Pulse Resp BP Pulse Ox 98.0 F 85 18 122/60 96 08/03/18 08:00 08/03/18 08:01 08/03/18 08:00 08/03/18 08:01 08/03/18 08:00 General: Alert, In no apparent distress, Oriented x3, Cooperative HEENT: Atraumatic Neck: Supple Respiratory: Clear to auscultation bilaterally, Normal air movement Cardiovascular: Normal pulses, Regular rate/rhythm Gastrointestinal: Normal bowel sounds, Soft and benign, Non-distended, No masses , No rebound, No guarding Musculoskeletal: No erythema, No tenderness, No warmth Integumentary: No tenderness/swelling, No erythema, No warmth, No cyanosis Neurological: Normal speech, Normal strength at 5/5 x4 extr, Normal tone, Normal affect Laboratory Data at Discharge: WBC 8.9 K/uL (4.3-10.9) D 08/03/18 03:48 Hgb 11.0 g/dL (13.6-17.9) L 08/03/18 03:48 Hct 32.0 % (39.6-49.0) L 08/03/18 03:48 Plt Count 259 K/uL (152-406) 08/03/18 03:48 Sodium 137 mmol/L (136-145) 08/03/18 03:48 Potassium 4.8 mmol/L (3.5-5.1) 08/03/18 03:48 BUN 54 mg/dL (7-18) H 08/03/18 03:48 Creatinine 9.00 mg/dL (0.55-1.3) H* D 08/03/18 03:48 Glucose 240 mg/dL (74-106) H 08/03/18 03:48 Magnesium 2.4 mg/dL (1.8-2.4) 08/03/18 03:48 Home Medications: Amlodipine Besylate [Norvasc] 10 mg PO DAILY 05/17/18 Apixaban [Eliquis *] 2.5 mg PO DAILY 05/17/18 Atorvastatin Calcium [Lipitor] 40 mg PO BEDTIME 05/17/18 Bisacodyl [Gentle Laxative] 5 mg PO DAILY 05/17/18 Calcium Carbonate [Tums X-Str] 3 tab PO TID 05/17/18 Carvedilol [Coreg*] 12.5 mg PO BID 05/17/18 Docusate [Colace Cap*] 250 mg PO DAILY 05/17/18 Insulin Glargine Human [Lantus*] 50 units SQ DAILY 12/18/18 Vit A/Vit C/Vit E/Zinc/Copper [Preservision Areds Softgel] 1 cap PO DAILY glipiZIDE [Glipizide] 5 mg PO DAILY 05/17/18 Arformoterol Tartrate [Brovana] 15 mcg NEB BIDRESP #60 vial.neb 08/03/18 Benzonatate [Tessalon Perle*] 100 mg PO TID PRN #15 cap 08/03/18 Ipratropium Neb [Atrovent*] 2.5 ml IH TID PRN #90 amp 08/03/18 predniSONE [Prednisone*] 20 mg PO SEECOM #15 tab 08/03/18 New Medications: Arformoterol Tartrate [Brovana] 15 mcg NEB BIDRESP #60 vial.neb Benzonatate [Tessalon Perle*] 100 mg PO TID PRN #15 cap PRN Reason: Cough Ipratropium Neb [Atrovent*] 2.5 ml IH TID PRN #90 amp PRN Reason: Shortness Of Breath predniSONE [Prednisone*] 20 mg PO SEECOM #15 tab Patient Discharge Instructions: 1. Patient will follow up with his PCP within 1 week. 2. Patient presented with shortness of breath secondary to COPD exacerbation. Patient also with underlying chronic diastolic CHF. Patient oxygen-dependent. Patient was seen and evaluated. He was treated with steroids and COPD medication. At discharge he is doing well without significant shortness of breath. He is much improved. At discharge he will continue with prednisone 20 mg 1 pill twice daily for 5 days then 1 pill once daily for 5 days. Tessalon Perles 100 mg 3 times a day as needed for cough will also be provided. For his COPD he will continue with Brovana 1 unit dose twice daily and ipratropium 1 unit dose 3 times a day as needed for shortness of breath. Home oxygen will be arranged and continued to maintain sats above 90 %. Recommend to follow up with pulmonology as an outpatient to further monitor and address. For his CHF patient will continue with a 1500 cc per day fluid restriction and low-salt diet. He is to monitor his weight daily. If his weight increases by more than 5 lb he is to contact nephrology for further recommendation. 3. Patient with end-stage renal disease on hemodialysis. He receives dialysis every Tuesdays, and Saturdays. Patient received dialysis during his stay. Case discussed with nephrology. Patient will be followed by nephrology. Recommend no further use of nonsteroidal anti- inflammatories. Future medications will need to be renally dosed. 4. Patient with diabetes mellitus type 2, insulin-dependent. This remained stable. At discharge he will continue with Lantus 50 units subcu daily. Patient also takes glipizide 5 mg daily. He is to monitor for hypoglycemia on glipizide. Recommend to maintain blood sugars less 140 fasting and less than 200 after meals. Further adjustment can be done by his PCP. 5. Patient with hypertension. At discharge he will continue the medication Norvasc 5 mg daily and carvedilol 12.5 mg 1 pill twice daily. Recommend maintain blood pressures less 150/80. Further adjustment can be done by his PCP. 6. Patient with atrial fibrillation on chronic anti coagulation therapy. Patient continue with carvedilol 12.5 mg 1 pill twice daily and Eliquis 2.5. Recommend follow up with cardiology as directed. 7. Patient with hyperlipidemia. At discharge he will continue with Lipitor 40 mg daily. 8. Patient likely with underlying obstructive sleep apnea. Recommend to follow up with pulmonology as an outpatient to further evaluate. Patient will need sleep study to further address. Diet: ADA Activity: Fall precautions Time spent managing pt's care (in minutes): 55
[2018-08-03] MEDS ORDERED: ALBUTEROL 2.5 MG/3 ML NEB SOL NEB PRN (14:00)
[2018-08-03] MEDS ORDERED: IPRATROPIUM BROM 0.5MG/2.5ML NEB PRN (14:00)
[2018-08-03] MEDS: Levofloxacin 250mg IV 250 MG/50 ML BAG IV SCH (14:36)
[2018-08-03 16:36] VITALS: BP 130/60; TEMP 97.9
--- NOTE | 2018-08-03 16:38 | PN ---
Date of Progress Note: 08/03/2018 Subjective: The patient was admitted with over volume, COPD exacerbation, status post dialysis yesterday. The patient feeling better. Physical Examination: Vital Signs: Blood pressure 122/60, pulse of 85. Chest: Clear to auscultation. Heart: S1, S2. Systolic murmur. Abdomen: Soft, nontender. Extremity: No edema. Neurologic: Oriented x3. No focal. The patient had dialysis yesterday, managed to remove 2400. Laboratory Data: Sodium 137, potassium 4.6, bicarb 25, BUN 54, creatinine 9, calcium 8.9. Current Medications: The patient on include, breathing treatment, Eliquis, carvedilol 12.5, Pepcid, insulin. Assessment And Plan: 1. End-stage renal disease, over volume and hyperkalemia status post dialysis yesterday, resolved. Continue HD TTS. 2. Secondary hyperparathyroidism, stable. 3. Hypertension, controlled, optimal. Continue current medication. 4. Over volume, resolved, dialyzed yesterday. 5. Hyperkalemia, resolved. 6. Diabetes. 7. Chronic obstructive pulmonary disease exacerbation as by primary. AL/BILLY Voice ID: [id number] Report ID: [id number] MANJINDER
[2018-08-03 16:51] VITALS: O2SAT 98
--- NOTE | 2018-08-04 08:03 | CON ---
Date of Consultation: 08/02/2018 Additional Consulting Physician: Dr. Ace. Reason For Consultation: Elevated BUN and creatinine, fluid management. History Of Present Illness: This is a pleasant 73-year-old gentleman, well known to me from the dialysis history of diabetes complicated with neuropathy and nephropathy, end-stage renal disease, on hemodialysis, MWF hemodialysis [place] , left AV fistula, COPD, hyperlipidemia. The patient came to the hospital complaining of cough, dry heaves and shortness of breath. Found to have COPD exacerbation, marginal elevation K for that reason, we have been consulted. The patient on evaluation in ER found to have slightly urgent dialysis. Past Medical History: Includes, 1. Hypertension. 2. Hyperlipidemia. 3. Coronary artery disease complicated with congestive heart failure. Ejection fraction of 40%. 4. Diabetes complicated with neuropathy and nephropathy. 5. End-stage renal disease, on hemodialysis at [facility] through left arm AV fistula. Past Surgical History: 1. Includes AV fistula. 2. Bilateral leg surgery. Family History: Positive for hypertension. Social History: Denies smoking. Denies drinking. Denies drugs abuse. Review of Systems: Head and neck: No red eye. No ear pain. GI: No nausea, no vomiting. : No polyuria, no dysuria, no hematuria. Advertising Representative: Not applicable. Respiratory: Has shortness of breath, has cough. Cardiovascular: Has leg edema. Endocrine: No polydipsia. Skin: No rash. Neuro: Has neuropathy. Musculoskeletal: Has low back pain. Physical Examination: Vital Signs: The patient blood pressure of 150/72, pulse of 88. Chest: Slight wheezing bilateral. Heart: S1, S2 systolic murmur. Abdomen: Soft, nontender. Extremity: No edema. Laboratory Data: WBC 7.3, H and H 11.1/33, platelets 257. Sodium 139, potassium 5, bicarb 26, BUN 63, creatinine 11, calcium 8.8. Assessment And Plan: 1. End-stage renal disease, over volume. We will take the patient for dialysis today. 2. Hyperkalemia. We will dialyze on low-potassium bath. 3. Anemia of chronic kidney disease. No need for LUANNE. 4. Over volume. The patient is going to be challenge. 5. Hyperkalemia. The patient is going to be dialyzed on low-potassium bath. 6. Chronic obstructive pulmonary disease exacerbation as by primary. 7. Coronary artery disease with congestive heart failure. Follow up with the primary. 8. Diabetes as by primary. AL/BILLY Voice ID: [id number] Report ID: [id number] MTDD
[2018-08-04] MEDS ORDERED: FAMOTIDINE 20 MG TAB PO SCH (09:00)
[2018-08-08 04:06] LABS: HBsAG Nonreactive (Nonreactive)
== END 2018-08-03 17:40 | disposition home or self-care (01) ==
LOC: ER 09:38 → ERHOLD 12:18 → 4TH 13:13
PROVIDERS: ADMIT Family Medicine; ATTEND Family Medicine
DX: J44.1 Chronic obstructive pulmonary disease with (acute) exacerbation (principal); I13.2 Hypertensive heart and chronic kidney disease with heart failure and with stage 5 chronic kidney disease, or end stage renal disease; E11.22 Type 2 diabetes mellitus with diabetic chronic kidney disease; N18.6 End stage renal disease; I50.32 Chronic diastolic (congestive) heart failure; Z99.2 Dependence on renal dialysis; Z99.81 Dependence on supplemental oxygen; I25.10 Atherosclerotic heart disease of native coronary artery without angina pectoris; E78.5 Hyperlipidemia, unspecified; I48.91 Unspecified atrial fibrillation; Z79.01 Long term (current) use of anticoagulants
CPT/HCPCS: 93005; 93306; 87040 ×2; 87088; 87070; 85025 ×2; 87086; 80048 ×2; 36415; 83735; 87205; 82962 ×5; 86317; 84145; 83880; 87340; 86706; 87804 ×2; 71045; 71046; 90935 ×2; 96374; 99285; J7605 ×2; J2930; G0378 ×2; 81003; 81015; J7512

== ENCOUNTER 2020-08-31 14:13 | Emergency (ER) | payer OTHER, BC ==
--- OUTSIDE RECORDS SUMMARY | 2020-08-31 14:17 | XMS REPORT | Continuity of Care Document ---
:1945 Author Organization [facility] t Address [address] [place] [address] Care Team Providers Name Role Phone Unavailable Unavailable Unavailable Problems This patient has no known problems. Allergies, Adverse Reactions, Alerts This patient has no known allergies or adverse reactions. Medications Ordered Filled Start Stop Current Ordering Indication Dosage Frequency Signature Comments Components Source Medication Medication Date Date Medication? Clinician (SIG) Name Name Advair HFA Advair HFA Yes Naveed [address] [facility] 1[facility]15 [facility] BD BD 2018-05 Yes Naveed [address] [facility] Ultra-Fine Ultra-Fine 0-09 [facility] with Tiffanie kes - Christina Pen Christina Pen 00:00: Basaglar [facility] [place] [facility] Tums E-X Tums E-X Yes Naveed [address] 750 750 [facility] Yes Naveed [address] KwikPen KwikPen [facility] PreserVisio PreserVisio Yes Naveed as [facility] n AREDS n AREDS [facility] directed [facility] Citalopram Citalopram Yes Naveed [address] [facility] Hydrobromid Hydrobromid [facility] Stool Stool Yes Naveed not [facility] Softener Softener [facility] defined [facility] Gentle Gentle Yes Naveed 1 tablet [facility] Laxative Laxative [facility] as needed [facility] Atorvastati Atorvastati Yes Naveed [address] [facility] n Calcium n Calcium [facility] Contour Contour Yes Naveed USE [address] [facility] Test Test [facility] TIMES A [facility] DAY [facility] Eliquis 2.5 Eliquis 2.5 Yes Naveed [address] [facility] mg mg [facility] Multivitami Multivitami Yes Naveed as [facility] n Adult n Adult [facility] directed [facility] Carvedilol Carvedilol Yes Naveed TAKE [address] [facility] TABLET [facility] - MOUTH [facility] TWICE A l DAY ON NON Outpati DIALYSIS ent DAYS Clinics Atorvastati Atorvastati Yes Naveed TAKE [address] [facility] n Calcium n Calcium [facility] TABLET BY [facility]TH [facility] EVERY DAY l Outpati ent Clinics GlipiZIDE GlipiZIDE Yes Naveed [address] [facility] Lana Schwartz Yes Naveed [address] KwikPen KwikPen [facility] Procedures This patient has no known procedures. Encounters Start End Encounter Admission Attending Care Care Encounter Source Date/Time Date/Time Type Type Clinicians Facility Department ID 2020-08-19 2020-08-19 Out[id number] 2020-07-19 2020-07-19 [facility] [id number] [facility] 2020-07-15 2020-07-15 [facility] [id number] [facility] 2020-06-14 2020-06-14 [facility] [id number] [facility] 2020-06-05 2020-06-05 [facility] [id number] [facility] 2020-04-23 2020-04-23 [facility] [id number] [facility] 2020-04-22 2020-04-22 Out[facility] [id number] [facility] 2020-04-17 2020-04-17 [facility] [id number] [facility] 2020-01-15 2020-01-15 [facility] [id number] [facility] 10[facility] 10[facility]45[facility] [place] [facility] Medicine l Medicine Outpati ent Clinics 2019-10-16 2019-10-16 [facility] [id number] [facility] 13:00:00 13:00:00 [place] [facility] [employer] s - Drive [facility] Medicine l Medicine Outpati ent Clinics 2019-07-17 2019-07-17 [facility] [id number] [facility] 13:45:00 13:45:00 [facility] [place] [facility] Medicine l Medicine Outpati ent Clinics 2019-06-14 2019-06-14 [facility] [id number] [address] 11:45:00 11:45:00 [place] [facility] l Medicine Outpati ent Clinics 2019-06-07 2019-06-07 [facility] [id number] 11:57:00 11:57:00 [place] [employer] s - Drive [facility] Medicine l Medicine Outpati ent Clinics 2019-05-17 2019-05-17 [facility] [id number] 11:30:00 11:30:00 [place] [employer] s - [facility] Medicine l Medicine Outpati ent Clinics 2019-04-24 2019-04-24 [facility] [id number] [address] 14:52:00 14:52:00 [place] [employer] s - [facility] Medicine l Medicine Outpati ent Clinics 2019-04-19 2019-04-19 [facility] [id number] [address] 14:45:00 14:45:00 [facility] [employer] [facility] Medicine Outpati ent Clinics 2019-04-06 2019-04-06 [facility] [id number] [address] 08:35:00 08:35:00 [facility] [employer] [facility] Medicine Outpati ent Clinics 2019-04-04 2019-04-04 [facility] [id number] [address] 08:34:00 08:34:00 [facility] [employer] [facility] Medicine Outpati ent Clinics 2019-03-08 2019-03-08 [facility] [id number] 10:57:00 10:57:00 [facility] [employer] [facility] Medicine Outpati ent Clinics 2019-02-20 2019-02-20 [facility] [id number] [facility] 14:00:00 14:00:00 [facility] [employer] [facility] Medicine Outpati ent Clinics Results This patient has no known results.
[2020-08-31] MEDS ORDERED: KETOROLAC 30 MG/ML INJ ONE (15:11)
[2020-08-31] MEDS ORDERED: CLINDAMYCIN 600MG/D5W 600 MG/50 ML BAG IV ONE (15:12)
[2020-08-31 15:20] LABS: Absolute Lymphocytes (CBC) 1.2 K/uL (0.7-4.9); Basophils % 0.4 % (0-1.3); Hematocrit 34.5 % (39.6-49.0); Lymphocytes % 17.4 % (15.3-44.8); MPV 8.1 fL (7.6-11.3); RBC Red Blood Cell Count 3.37 M/uL (4.33-5.43)
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
[2020-08-31 19:36] VITALS: O2SAT 100
[2020-08-31 19:40] VITALS: BP 148/68
== END 2020-08-31 16:34 | disposition home or self-care (01) ==
LOC: ER 14:13
DX: L03.011 Cellulitis of right finger (principal); E11.22 Type 2 diabetes mellitus with diabetic chronic kidney disease; I13.2 Hypertensive heart and chronic kidney disease with heart failure and with stage 5 chronic kidney disease, or end stage renal disease; N18.6 End stage renal disease; I50.9 Heart failure, unspecified; Z99.2 Dependence on renal dialysis; Z88.5 Allergy status to narcotic agent; Z88.8 Allergy status to other drugs, medicaments and biological substances
CPT/HCPCS: 36415; 85025; 96365; 96375; 99284

== ENCOUNTER 2021-09-10 08:00 | Day surgery (SDC) | payer OTHER, BC ==
[2021-09-08 10:22] LABS: Absolute Lymphocytes (CBC) 1.1 K/uL (0.7-4.9); Lymphocytes % 29.6 % (15.3-44.8); RBC Red Blood Cell Count 2.26 M/uL (4.33-5.43)
[2021-09-08 10:25] LABS: Protime INR 1.29
[2021-09-08 10:40] LABS: Potassium 4.6 mmol/L (3.5-5.1)
[2021-09-08 11:25] LABS: Anisocytosis 2+; Blood Morphology Comment NOTED (NOT SEEN); Platelet Estimate ADEQ; White Blood Cell Scan OK (OK)
[2021-09-08 11:26] LABS: Rouleau SLIGHT
[~2021-09-10 08:00] MED LIST: FENTANYL CITR 100 MCG/2 ML ONE
[2021-09-10] MEDS ORDERED: ATROPINE SULF 1 MG/10 ML SYR IV ONE (08:01)
[2021-09-10] MEDS ORDERED: MIDAZOLAM HCL 2 MG/2 ML INJ ONE ×3 (08:01→12:10)
[2021-09-10] MEDS ORDERED: HEPARIN 10,000 UNIT/10 ML VIAL IV ONE ×2 (08:01→11:03)
[2021-09-10] MEDS ORDERED: HEPA 1000U/500MLS 3,000 UNIT/1,500 ML BAG IV ONE (08:05)
[2021-09-10] MEDS ORDERED: LIDOCAINE 1% 20 ML MDV ONE (08:05)
[2021-09-10] MEDS ORDERED: NITROGLYCERIN 100 MCG/ML SYR (for cath lab use only) IV ONE (08:06)
[2021-09-10] MEDS ORDERED: NITROGLYCERIN/D5W 25 MG/250 ML BTL IV ONE (08:06)
[2021-09-10] MEDS ORDERED: NA CHLORIDE 0.9% 500 ML ONE ×2 (08:20→11:58)
[2021-09-10] MEDS ORDERED: HEPA 1000U/500MLS 1,000 UNIT/500 ML BAG IV ONE (10:49)
[2021-09-10] MEDS ORDERED: NA CHLORIDE 0.9% 1,000 ML ONE (11:23)
[2021-09-10] MEDS ORDERED: FENTANYL CITR 100 MCG/2 ML ONE (11:56)
[2021-09-10] MEDS ORDERED: ASPIRIN 325 MG TAB ONE (13:10)
[2021-09-10] MEDS ORDERED: CLOPIDOGREL 75 MG TABLET ONE (13:11)
[2021-09-10 16:50] VITALS: BP 164/69; O2SAT 99
== END 2021-09-10 17:00 | disposition home or self-care (01) ==
LOC: CCL 08:00
PROVIDERS: ATTEND Internal Medicine
DX: I70.235 Atherosclerosis of native arteries of right leg with ulceration of other part of foot (principal); I70.92 Chronic total occlusion of artery of the extremities; E11.51 Type 2 diabetes mellitus with diabetic peripheral angiopathy without gangrene; Z79.4 Long term (current) use of insulin; Z88.5 Allergy status to narcotic agent; Z88.8 Allergy status to other drugs, medicaments and biological substances; Z20.822 Contact with and (suspected) exposure to COVID-19
CPT/HCPCS: 85025; 80048; 36415; 85610; 82947; 85347 ×2; 85730; 75630; 37229; 76937; U0003; C1893; C1887; C1725; C1769; J2250 ×2; J3010 ×2; J7040 ×2; J7030; J1644 ×2; 36200; 36245

== ENCOUNTER 2021-09-16 09:35 | Emergency (ER) | payer OTHER, BC ==
--- OUTSIDE RECORDS SUMMARY | 2021-09-16 09:38 | XMS REPORT | Continuity of Care Document ---
:1945 Author Organization [facility] t Address [address] [place] [address] Care Team Providers Name Role Phone Emily Fortune Attending Clinician Unavailable Problems This patient has no known [...] Pen Christina Pen 00:00: [facility] [place] Tums E-X Tums E-X Yes Naveed [address] 750 750 [facility] Basaglar Basaglar Yes Naveed [address] [...] [address] [facility] Yes Naveed [address] KwikPen KwikPen [facility] Procedures This patient has no known procedures. Encounters Start End Encounter Admission Attending Care Care Encounter Source Date/Time Date/Time Type Type Clinicians Facility Department ID 2021-06-25 Outpatient Fortune, [facility]06 N[facility]ed [id number] [facility] 2021-06-25 Outpatient Fortune, [facility] 14[facility]13:51 Naveed [id number] [facility] 2021-06-25 Outpatient Fortune, [facility] 13[facility]38:12 Naveed [id number] [facility] 2021-06-25 Outpatient Fortune, [facility] 12[facility]43:29 Naveed [id number] [facility] 2021-06-25 Outpatient Fortune, [facility] [id number] [facility] 12:42:27 Naveed [id number] [facility] 2021-06-25 Outpatient Fortune, [facility] [id number] [facility] 12:31:12 Naveed [id number] [facility] 2021-06-25 Outpatient Fortune, [facility] [id number] [facility] [facility] 12:31:03 Naveed [id number] [facility] 2021-06-25 Outpatient Fortune, [facility] [id number] [address] 12:30:21 Naveed [id number] [facility] 2021-06-25 Outpatient Fortune, [facility] [id number] [facility] 11:00:43 Naveed [id number] [facility] 2021-08-12 2021-08-12 ambulatory [facility] [id number] [facility] 2021-07-28 2021-07-28 ambulatory [facility] [id number] [facility] 2021-07-28 2021-07-28 ambulatory [facility] [id number] [facility] 2021-06-12 2021-06-12 ambulatory [facility] [id number] [facility] 2021-05-21 2021-05-21 ambulatory [facility] [id number] [facility] 2021-04-28 2021-04-28 ambulatory [facility] [id number] [facility] 2021-03-26 2021-03-26 Outpatient [facility] [id number] [facility] 2021-03-12 2021-03-12 Outpatient [facility] [id number] [facility] 2021-02-10 2021-02-10 Outpatient [facility] [id number] [facility] 2021-01-31 2021-01-31 Outpatient [facility] [id number] [facility] 2021-01-13 2021-01-13 Outpatient [facility] [id number] [facility] 2021-01-08 2021-01-08 Outpatient [facility] [id number] [facility] 2020-12-31 2020-12-31 Outpatient [facility] [id number] [facility] 2020-12-11 2020-12-11 Outpatient [facility] [id number] [facility] 2020-08-19 2020-08-19 Outpatient [facility] [id number] [facility] 2020-07-19 2020-07-19 Outpatient [facility] [id number] [facility] 2020-07-15 2020-07-15 Outpatient [facility] [id number] [facility] 2020-06-14 2020-06-14 Outpatient [facility] [id number] [facility] 2020-06-05 2020-06-05 Outpatient [facility] [id number] [facility] 2020-04-23 2020-04-23 [id number] 2020-04-22 2020-04-22 Outpatient [facility] [id number] [facility] 2020-04-17 2020-04-17 [facility] [id number] [facility] 2020-01-15 2020-01-15 [facility] [id number] [facility] 10[facility]45:00 10:45:00 [facility] 2019-10-16 2019-10-16 [facility] [id number] 13:00:00 13:00:00 [facility] 2019-07-17 2019-07-17 [facility] [id number] 13:45:00 13:45:00 t [facility] Clin[facility] 2019-06-14 2019-06-14 [facility] [id number] 11:45:00 11:45:00 t [facility] Clin[facility] 2019-06-07 2019-06-07 [facility] [id number] 11:57:00 11:57:00 t [facility] Clin[facility] 2019-05-17 2019-05-17 [facility] [id number] 11:30:00 11:30:00 t [facility] Out[facility] Clinics 2019-04-24 2019-04-24 [facility] [id number] [facility] 14:52:00 14:52:00 t [facility] Out[facility] Clinics 2019-04-19 2019-04-19 [facility] [id number] 14:45:00 14:45:00 t [facility] - [facility] Medicine Outpati ent Clinics 2019-04-06 2019-04-06 [facility] [id number] [facility] 08:35:00 08:35:00 t [facility] - [facility] Medicine Outpati ent Clinics 2019-04-04 2019-04-04 [facility] [id number] 08:34:00 08:34:00 t [employer] s - @[employer] [facility] Medicine Outpati ent Clinics 2019-03-08 2019-03-08 [facility] [id number] 10:57:00 10:57:00 t [employer] s - @[employer] [facility] Medicine Outpati ent Clinics 2019-02-20 2019-02-20 [facility] [id number] [facility] 14:00:00 14:00:00 t [employer] [facility] - @Pay [facility] Clin[facility] Results This patient has no known results.
[2021-09-16] MEDS ORDERED: FENTANYL CITR 100 MCG/2 ML ONE (12:47)
[2021-09-16 13:10] LABS: Hematocrit 22.4 % (39.6-49.0); Lymphocytes % 17.2 % (15.3-44.8); MPV 7.5 fL (7.6-11.3); RBC Red Blood Cell Count 1.94 M/uL (4.33-5.43)
--- NOTE | 2021-09-16 14:00 | RAD REPORT ---
EXAM DESCRIPTION: RAD - Tib Fib Left - 09/16/2021 1:33 pm CLINICAL HISTORY: Fall, leg pain, mid tib-fib laceration COMPARISON: None. FINDINGS: No fracture is identified. There is no dislocation or periosteal reaction noted. No acute or suspicious bony finding. No foreign body or other soft tissue abnormality. Dense arterial tree calcifications are present not unusual for diabetic patient. IMPRESSION: Negative left tibia & fibula examination for acute bone, joint or soft tissue finding.
--- NOTE | 2021-09-16 14:01 | RAD REPORT ---
EXAM DESCRIPTION: RAD - Elbow Left 3 View - 09/16/2021 1:33 pm CLINICAL HISTORY: PAINfollowing fall COMPARISON: None. FINDINGS: No fracture is identified and no elevated posterior fat pad. There is no dislocation or pe riosteal reaction noted. No significant degenerative changes are present at the elbow joint. Numerou s no stasis clips are present in the superficial antecubital fossa. Eggshell type calcifications seen in the soft tissues of the anterior upper arm soft tissues are likely vascular wall calcifications f rom dialysis fistula. IMPRESSION: Negative left elbow examination for acute finding.
[2021-09-16] MEDS ORDERED: CLINDAMYCIN 900MG/D5W 900 MG/50 ML IVPB IV ONE (14:36)
--- NOTE | 2021-09-16 14:49 | RAD REPORT ---
EXAM DESCRIPTION: CT - Head C Spine Cap Wo Con - 09/16/2021 2:13 pm CLINICAL HISTORY: fall, head, neck, chest and abdomen pain COMPARISON: No comparisons TECHNIQUE: Axial [address] head images were obtained. Axial [address] cervical spine images were obtain ed with sagittal and coronal reconstruction images reviewed. Axial 5 mm images of the chest, abdomen and pelvis were obtained without IV contrast. Sagittal and coronal reconstruction of the chest, abdo men and pelvis performed. All CT scans are performed using dose optimization technique as appropriate and may include automated exposure control or mA/KV adjustment according to patient size. FINDINGS: No intracranial hemorrhage, mass or edema. No midline shift or abnormal fluid collection. Mastoid air cells and paranasal sinuses are clear. No skull fracture. Atrophy and chronic ischemic c hanges are mild. Ventricles are in proportion to volume loss. Arterial tree calcifications are presen t. Chronic ischemic changes are seen in the brainstem. CT cervical spine shows normal height and alignment. No fracture or acute finding. No disc space narr owing. No suspicious soft tissue finding. Central canal detail is inherently limited. CT chest shows no pneumothorax, pulmonary contusion or pleural fluid collection. There is questionabl e minimal ground-glass opacification of the left upper lobe. This is not sufficient for infiltrate di agnosis. No mediastinal hematoma and the aorta and pulmonary arteries are unremarkable for non contra st study. No chest will mass or abnormal axillary finding. No displaced rib fracture or other signifi cant bony finding. Cardiomegaly is present without pericardial thickening or effusion. Dense coronar y artery calcifications are present. CT abdomen and pelvis show no injury to the solid abdominal viscera. Small gallstones are present. No acute gallbladder or biliary tree finding seen. A 3 centimeter round low-density mass medial lower p ole left kidney has attenuation value corresponding to a simple cyst. A smaller 2 centimeter oval low -density mass in the more medial portion of the central left kidney also shows simple cyst characteri stics. A 13 millimeter round homogeneous hyperdense mass projects from the anterior lower pole of the left kidney most likely an incidental high protein content cyst. There is an adjacent 2.2 centimeter exophytic lower pole cyst. Minimal nodularity of the left adrenal gland is present not regarded as s ignificant. Patient has a large hiatal hernia with approximately 25% of the stomach intrathoracic. No acute compo nent is identifiable. There is prominent sigmoid diverticulosis without diverticulitis. No acute piter l injury is identifiable. No free air, free fluid or abnormal stranding. Urinary bladder is fully con tracted limiting assessment. Patient has large bilateral fat filled inguinal hernias. Oval soft tissue density in the right inguin al canal could be scar tissue or possibly an undescended testicle. Disc and bone degenerative changes are present. There is a large Schmorl's node in the inferior L3 bettina dy. Small Schmorl's nodes are seen in the upper lumbar vertebrae. No pathologic bone process. An acut e compression fracture in the spine, pelvis or proximal femora not identified. IMPRESSION: Mild atrophy and chronic ischemic changes are present with no acute CT Head finding. Cervical spine degenerative change with no acute finding. No acute or significant CT chest finding. Cardiomegaly is present without pericardial effusion. No acute traumatic injury in the abdomen or pelvis. Multiple left-sided renal masses are present with 1 13 mm hyperdense mass projecting from the lower pole is most likely high protein content cyst. Thi s can be monitored on follow-up renal sonography. Additional nonacute findings are detailed in the body of the report.
[2021-09-16 14:50] LABS: Magnesium 2.3 mg/dL (1.8-2.4); Potassium 5.5 mmol/L (3.5-5.1)
--- NOTE | 2021-09-16 15:19 | ER ---
Nurse's Notes [facility] Name: Guzman Mayers Age: 76 yrs Sex: Male : 1945 Arrival Date: 09/16/2021 Time: 09:38 Bed 23 Private MD: Naveed Fortune Diagnosis: Cellulitis of face-lower lip;Abrasion of left elbow, initial encounter;Abrasion of lower leg-left;Fall on same level from slipping, tripping and stumbling without subsequent striking against object;Hyperkalemia;Anemia in chronic kidney disease;End stage renal disease Presentation: 09/16 10:26 Chief complaint: Patient states: tripped on an extension cord on Wednesday, fell forward, iw has pain to left forearm, left leg/hip and his bottom lip is swollen from being puncture by a thorn when he fell , has bruising to his chin, denies LOC, it appears there is still a piece of thorn stuck in bottom lip. Care prior to arrival: None. Mechanism of Injury: Fall from standing position. Trauma event details: Injury occurred in the [facility]. 10:26 Acuity: CHICHO 3 iw 10:26 Method Of Arrival: Ambulatory iw 10:32 Coronavirus screen: At this time, the client does not indicate any symptoms associated iw with coronavirus-19. Ebola Screen: Patient negative for fever greater than or equal to 101.5 degrees Fahrenheit, and additional compatible Ebola Virus Disease symptoms Patient denies exposure to infectious person. Patient denies travel to an Ebola-affected area in the 21 days before illness onset. No symptoms or risks identified at this time. Initial Sepsis Screen: Does the patient meet any 2 criteria? No. Patient's initial sepsis screen is negative. Does the patient have a suspected source of infection? No. Patient's initial sepsis screen is negative. Risk Assessment: Do you want to hurt yourself or someone else? Patient reports no desire to harm self or others. Onset of symptoms was September 12, 2021. Trauma Activation: Not Applicable Physician: ED Physician; Name: ; Notified At: ; Arrived At: Physician: General Surgeon; Name: ; Notified At: ; Arrived At: Physician: Radiology; Name: ; Notified At: ; Arrived At: Physician: Respiratory; Name: ; Notified At: ; Arrived At: Physician: Lab; Name: ; Notified At: ; Arrived At: Historical: - Allergies: 10: Codeine; iw 10:28 GABAPENTIN; iw - Home Meds: 10:28 aspirin 81 mg Oral chew 1 tab once daily [Active]; atorvastatin 40 mg Oral tab 1 tab iw once daily [Active]; bumetanide 2 mg Oral tab 2 tab once daily [Active]; carvedilol 25 mg Oral tab 1 tab 2 times per day [Active]; cefuroxime axetil 250 mg Oral tab 1 tab 2 times per day [Active]; Centrum Silver 400-250 mcg Oral chew daily [Active]; ferrous sulfate 325 mg (65 mg iron) Oral TbEC three times a day [Active]; gabapentin Oral [Active]; glipizide 5 mg Oral tab 1 tab once daily [Active]; hydralazine 100 mg Oral tab 1 tab 2 times per day [Active]; isosorbide mononitrate 30 mg Oral Tb24 1 tab once daily [Active]; Lantus 100 unit/mL Sub-Q soln 80 unit daily [Active]; metolazone 2.5 mg Oral tab 1 tab once daily [Active]; montelukast 10 mg Oral tab 1 tab once daily [Active]; PreserVision AREDS 14,320-226-200 yqxs-th-fzpf Oral cap [Active]; spironolactone 25 mg Oral tab 1 tab once daily [Active]; - PMHx: 10:28 ADD/ADHD; CHF; Dialysis; CKD; COPD; Diabetes - IDDM; dialysis tues, thurs, sat, uses o2 iw when sleeping.; High Cholesterol; HTN; - Immunization history: Last tetanus immunization: unknown. - Social history:: Smoking status: Patient denies any tobacco usage or history of. Patient/guardian denies using alcohol. Screenin:36 Abuse screen: Denies threats or abuse. Denies injuries from another. Nutritional ld1 screening: No deficits noted. Tuberculosis screening: No symptoms or risk factors identified. Fall Risk Fall in past 12 months (25 points). Gait- Weak (10 pts.). Total Stout Fall Scale indicates Low Risk Score (25-44 pts). Fall prevention measures have been instituted. Side Rails Up X 2 Placed close to Nursing Station Frequent Obs/Assesments occuring. Assessment: 12:36 General: Appears in no apparent distress. comfortable, Behavior is calm, cooperative, ld1 appropriate for age. Pain: Complains of pain in chin, left arm, left leg, mouth and neck Pain does not radiate. Pain currently is 8 out of 10 on a pain scale. Quality of pain is described as throbbing. Neuro: Level of Consciousness is awake, alert, obeys commands, Oriented to person, place, time, situation. Cardiovascular: Capillary refill < 3 seconds Patient's skin is warm and dry. Respiratory: Airway is patent Respiratory effort is even, unlabored. GI: Abdomen is round non-distended, obese. : No signs and/or symptoms were reported regarding the genitourinary system. EENT: No signs and/or symptoms were reported regarding the EENT system. Derm: No signs and/or symptoms reported regarding the dermatologic system. Musculoskeletal: No signs and/or symptoms reported regarding the musculoskeletal system. 14:37 Reassessment: Patient appears in no apparent distress at this time. Patient and/or ld1 family updated on plan of care and expected duration. Pain level reassessed. Patient states feeling better. 15:29 Reassessment: Patient appears in no apparent distress at this time. No changes from ld1 previously documented assessment. Patient and/or family updated on plan of care and expected duration. Pain level reassessed. Patient is alert, oriented x 3, equal unlabored respirations, skin warm/dry/pink. Vital Signs: 10:32 BP 136 / 62; Pulse 65; Resp 18; Temp 97.1; Pulse Ox 100% on R/A; Weight 94.35 kg; iw Height 5 ft. 10 in. (177.80 cm); 14:37 BP 113 / 80; Pulse 62; Resp 18; Pulse Ox 99% on R/A; ld1 15:29 BP 125 / 44; Pulse 74; Resp 18; Pulse Ox 98% on R/A; ld1 10:32 Body Mass Index 29.85 (94.35 kg, 177.80 cm) iw Shakila Coma Score: 10:32 Eye Response: spontaneous(4). Verbal Response: oriented(5). Motor Response: obeys iw commands(6). Total: 15. Trauma Score (Adult): 10:32 Eye Response: spontaneous(1); Verbal Response: oriented(1); Motor Response: obeys iw commands(2); Systolic BP: > 89 mm Hg(4); Respiratory Rate: 10 to 29 per min(4); Shakila Score: 15; Trauma Score: 12 ED Course: 09:38 Patient arrived in ED. mr 09:38 Naveed Fortune DO is Private Physician. mr 10:28 Triage completed. iw 12:18 Anderson Feldman PA is PHCP. cp 12:18 Wendi Aguilera MD is Attending Physician. cp 12:35 Montse Miller, GILSON is Primary Nurse. ld1 12:36 Patient has correct armband on for positive identification. Placed in gown. Bed in low ld1 position. Call light in reach. Side rails up X2. laboratory monitor on. Pulse ox on. NIBP on. Door closed. Noise minimized. Warm blanket given. 12:36 No provider procedures requiring assistance completed. ld1 12:59 Inserted saline lock: 20 gauge in right antecubital area, using aseptic technique. ld1 Blood collected. 13:34 XRAY Elbow LEFT 3 view In Process Unspecified. EDMS 13:34 XRAY Tib Fib LEFT In Process Unspecified. EDMS 14:14 CT Traumagram (Head C Spine CAP wo con) In Process Unspecified. EDMS 15:16 Prakash Randle MD is Referral Physician. cp 15:42 Arm band placed on left wrist. ld1 15:42 IV discontinued, intact, bleeding controlled, No redness/swelling at site. ld1 Administered Medications: 12:59 Drug: fentaNYL (PF) 25 mcg Route: IVP; Site: right antecubital; ld1 15:22 Follow up: Response: No adverse reaction ld1 13:37 CANCELLED (Physician Discretion): Clindamycin 900 mg IVPB once over 30 mins; (mix in 50 cp mL) 14:37 Drug: Clindamycin 900 mg Route: IVPB; Infused Over: 30 mins; Site: right antecubital; ld1 15:14 Follow up: Response: No adverse reaction; IV Status: Completed infusion; IV Intake: [id number] 15:03 CANCELLED (Physician Discretion): Kayexalate (polystyrene) 30 grams PO once cp 15:17 Drug: Insulin Regular Human 7 units {Co-Signature: ll1 (Devin Lazo RN).} Route: IVP; ld1 Site: right antecubital; 15:21 Follow up: Response: No adverse reaction ld1 Intake: 15:14 IV: 50ml; Total: 50ml. ld1 Outcome: 15:18 Discharge ordered by . cp 15:42 Discharged to home via wheelchair, with family. ld1 15:42 Condition: stable 15:42 Discharge instructions given to patient, family, Instructed on discharge instructions, follow up and referral plans. medication usage, Demonstrated understanding of instructions, follow-up care, medications, Prescriptions given X 1. 15:42 Patient left the ED. ld1 Signatures: Dispatcher [employer] [facility] Kelly Sahni Alisa Chambers RN RN iw Anderson Feldman PA PA cp Dibbern, Lauren, RN RN ld1 Devin Lazo RN ll1 Corrections: (The following items were deleted from the chart) 10:28 10:26 Chief complaint: Patient states: tripped on an extension cord on Wednesday, fell iw forward, has pain to left forearm, left leg/hip and his bottom lip is swollen from being puncture by a thorn when he fell iw 10:31 10:26 Chief complaint: Patient states: tripped on an extension cord on Wednesday, fell iw forward, has pain to left forearm, left leg/hip and his bottom lip is swollen from being puncture by a thorn when he fell , has bruising to his chin, denies LOC iw 10:33 10:32 Pulse 65bpm; Resp 18bpm; Pulse Ox 100% RA; Temp 97.1F; 94.35 kg; Height 5 ft. 10 iw in.; BMI: 29.8; iw
--- NOTE | 2021-09-16 15:19 | EDPHYS ---
Physician Documentation [facility] Name: Guzman Mayers Age: 76 yrs Sex: Male : 1945 Arrival Date: 09/16/2021 Time: 09:38 Bed 23 Private MD: Tong [facility] ED Physician Wendi Aguilera HPI: 09/16 12:40 This 76 yrs old Male presents to ER via Ambulatory with complaints of Fall cp Injury, Lips Swelling, Arm Injury, Leg Injury. 12:40 Details of fall: The patient fell from an upright position, while walking. cp 12:40 Onset: The symptoms/episode began/occurred 4 day(s) ago. cp 12:40 Associated injuries: The patient sustained injury to the head, swelling of lower lip cp with concern for embedded plant thorn, left arm, abrasion, left lower leg, abrasion, swelling. Severity of symptoms: in the emergency department the symptoms are unchanged, despite home interventions. Patient reports missing dialysis today and was last dialyzed Wednesday. Historical: - Allergies: 10:28 Codeine; iw 10:28 GABAPENTIN; iw - Home Meds: 10:28 aspirin 81 mg Oral chew 1 tab once daily [Active]; atorvastatin 40 mg Oral tab 1 tab iw once daily [Active]; bumetanide 2 mg Oral tab 2 tab once daily [Active]; carvedilol 25 mg Oral tab 1 tab 2 times per day [Active]; cefuroxime axetil 250 mg Oral tab 1 tab 2 times per day [Active]; Centrum Silver 400-250 mcg Oral chew daily [Active]; ferrous sulfate 325 mg (65 mg iron) Oral TbEC three times a day [Active]; gabapentin Oral [Active]; glipizide 5 mg Oral tab 1 tab once daily [Active]; hydralazine 100 mg Oral tab 1 tab 2 times per day [Active]; isosorbide mononitrate 30 mg Oral Tb24 1 tab once daily [Active]; Lantus 100 unit/mL Sub-Q soln 80 unit daily [Active]; metolazone 2.5 mg Oral tab 1 tab once daily [Active]; montelukast 10 mg Oral tab 1 tab once daily [Active]; PreserVision AREDS 14,320-226-200 hoco-mm-wmun Oral cap [Active]; spironolactone 25 mg Oral tab 1 tab once daily [Active]; - PMHx: 10:28 ADD/ADHD; CHF; Dialysis; CKD; COPD; Diabetes - IDDM; dialysis tues, thurs, sat, uses o2 iw when sleeping.; High Cholesterol; HTN; - Immunization history: Last tetanus immunization: unknown. - Social history:: Smoking status: Patient denies any tobacco usage or history of. Patient/guardian denies using alcohol. ROS: 12:45 Constitutional: Negative for body aches, chills, fever, poor PO intake. cp 12:45 ENT: Positive for swelling of lower lip. cp 12:45 Cardiovascular: Negative for chest pain. 12:45 Respiratory: Negative for cough, shortness of breath, wheezing. 12:45 Abdomen/GI: Negative for abdominal pain, nausea, vomiting, and diarrhea. 12:45 MS/extremity: Positive for abrasion, pain, of the left arm and left lower leg, Negative for decreased range of motion, deformity. 12:45 Neuro: Negative for altered mental status, dizziness, headache, loss of consciousness, syncope, weakness. 12:45 All other systems are negative. Exam: 12:50 ECG was reviewed by the Attending Physician. cp 12:50 Constitutional: The patient appears in no acute distress, alert, awake, cp non-diaphoretic, non-toxic, well developed, well nourished. 12:50 Head/face: Noted is swelling, that is mild, of the lower lip, tenderness, that is cp mild, of the lower lip. 12:50 Eyes: Periorbital structures: appear normal, Pupils: equal, round, and reactive to light and accomodation, Extraocular movements: intact throughout, Conjunctiva: normal, no exudate, no injection, Sclera: no appreciated abnormality, Lids and lashes: appear normal, bilaterally. 12:50 ENT: External ear(s): are unremarkable, Nose: is normal, Mouth: Oral mucosa: pink and intact, moist, Posterior pharynx: Airway: no evidence of obstruction, patent. 12:50 Neck: ROM/movement: is normal, is supple, without pain, no range of motions limitations. 12:50 Chest/axilla: Inspection: normal, Palpation: is normal, no crepitus, no tenderness. 12:50 Cardiovascular: Rate: normal, Rhythm: regular. 12:50 Respiratory: the patient does not display signs of respiratory distress, Respirations: normal, no use of accessory muscles, no retractions, labored breathing, is not present, Breath sounds: are clear throughout, no decreased breath sounds, no stridor. 12:50 Abdomen/GI: Inspection: abdomen appears normal, Bowel sounds: active, all quadrants, Palpation: abdomen is soft and non-tender, in all quadrants. 12:50 Back: vertebral tenderness, is not appreciated. 12:50 Skin: injury, abrasion(s), moderate sized abrasion noted, of the left elbow and left lower leg, that can be described as without bleeding, mild swelling. 12:50 Neuro: Orientation: to person, place \T\ time. Mentation: is normal, Motor: moves all fours, strength is normal, Sensation: is normal. Vital Signs: 10:32 BP 136 / 62; Pulse 65; Resp 18; Temp 97.1; Pulse Ox 100% on R/A; Weight 94.35 kg; iw Height 5 ft. 10 in. (177.80 cm); 14:37 BP 113 / 80; Pulse 62; Resp 18; Pulse Ox 99% on R/A; ld1 15:29 BP 125 / 44; Pulse 74; Resp 18; Pulse Ox 98% on R/A; ld1 10:32 Body Mass Index 29.85 (94.35 kg, 177.80 cm) iw Weinert Coma Score: 10:32 Eye Response: spontaneous(4). Verbal Response: oriented(5). Motor Response: obeys iw commands(6). Total: 15. Trauma Score (Adult): 10:32 Eye Response: spontaneous(1); Verbal Response: oriented(1); Motor Response: obeys iw commands(2); Systolic BP: > 89 mm Hg(4); Respiratory Rate: 10 to 29 per min(4); Shakila Score: 15; Trauma Score: 12 MDM: 12:23 Patient medically screened. cp 15:14 Physician consultation: Prakash Randle MD was called at 15:14, was contacted at 15:14, cp regarding consult, patient's condition, and will see patient in clinic tomorrow for dialysis. 15:17 Data reviewed: vital signs, nurses notes, lab test result(s), EKG, radiologic studies, cp CT scan, plain films. 15:17 Test interpretation: by ED physician or midlevel provider: ECG, plain radiologic cp studies. Counseling: I had a detailed discussion with the patient and/or guardian regarding: the historical points, exam findings, and any diagnostic results supporting the discharge/admit diagnosis, lab results, radiology results, the need for outpatient follow up, nephrology, to return to the emergency department if symptoms worsen or persist or if there are any questions or concerns that arise at home. Response to treatment: the patient's symptoms have mildly improved after treatment, and as a result, I will discharge patient. 09/16 12:36 Order name: Basic Metabolic Panel; Complete Time: 15:00 cp 09/16 15:00 Interpretation: Normal except: NA 132; K 5.5; CL 94; GLUC 266; BUN 51; GFR 6. cp 09/16 12:36 Order name: CBC with Diff; Complete Time: 13:19 cp 09/16 13:19 Interpretation: Normal except: WBC 6.1; RBC 1.94; HGB 7.5; HCT 22.4; MCV 115.5; MCH cp 38.8; RDW 15.4; MPV 7.5. 09/16 12:36 Order name: XRAY Elbow LEFT 3 view; Complete Time: 15:00 cp 09/16 12:36 Order name: XRAY Tib Fib LEFT; Complete Time: 15:00 cp 09/16 12:36 Order name: Magnesium; Complete Time: 15:00 cp 09/16 13:38 Order name: CT Traumagram (Head C Spine CAP wo con); Complete Time: 15:00 cp 09/16 12:36 Order name: EKG; Complete Time: 12:37 cp 09/16 12:36 Order name: Cardiac monitoring; Complete Time: 12:49 cp 09/16 12:36 Order name: EKG - Nurse/Tech; Complete Time: 12:49 cp 09/16 12:36 Order name: IV Saline Lock; Complete Time: 12:59 cp 09/16 12:36 Order name: Labs collected and sent; Complete Time: 12:59 cp 09/16 12:36 Order name: O2 Per Protocol; Complete Time: 12:49 cp 09/16 12:36 Order name: O2 Sat Monitoring; Complete Time: 12:49 cp EC:50 Rate is 70 beats/min. Rhythm is regular. QRS interval is prolonged at 172 msec. QT cp interval is normal. T waves are Inverted in lead aVR. Interpreted by me. Reviewed by me. Administered Medications: 12:59 Drug: fentaNYL (PF) 25 mcg Route: IVP; Site: right antecubital; ld1 15:22 Follow up: Response: No adverse reaction ld1 13:37 CANCELLED (Physician Discretion): Clindamycin 900 mg IVPB once over 30 mins; (mix in 50 cp mL) 14:37 Drug: Clindamycin 900 mg Route: IVPB; Infused Over: 30 mins; Site: right antecubital; ld1 15:14 Follow up: Response: No adverse reaction; IV Status: Completed infusion; IV Intake: [id number] 15:03 CANCELLED (Physician Discretion): Kayexalate (polystyrene) 30 grams PO once cp 15:17 Drug: Insulin Regular Human 7 units {Co-Signature: ll1 (Devin Lazo RN).} Route: IVP; ld1 Site: right antecubital; 15:21 Follow up: Response: No adverse reaction ld1 Disposition Summary: 09/16/21 15:18 Discharge Ordered Location: Home cp Problem: new cp Symptoms: have improved cp Condition: Stable cp Diagnosis - Cellulitis of face - lower lip cp - Abrasion of left elbow, initial encounter cp - Abrasion of lower leg - left cp - Fall on same level from slipping, tripping and stumbling without subsequent cp striking against object - Hyperkalemia cp - Anemia in chronic kidney disease cp - End stage renal disease cp Followup: cp - With: Prakash Randle MD - When: Tomorrow - Reason: Wound Recheck, dialysis Discharge Instructions: - Discharge Summary Sheet cp - Anemia cp - Cellulitis, Adult cp - Fall Prevention in the Home, Adult cp - Hyperkalemia cp - Chronic Kidney Disease, Adult cp Forms: - Medication Reconciliation Form cp - Thank You Letter cp - Antibiotic Education cp - Prescription Opioid Use cp Prescriptions: - Clindamycin HCl 300 mg Oral Capsule - take 1 capsule by ORAL route every 6 hours for 10 days; 40 capsule; Refills: 0, cp Product Selection Permitted Addendum: 09/18/2021 18:36 Co-signature as Attending Physician, Wendi navarro a2 Signatures: Dispatcher [employer] Alisa Kohli, RN RN Anderson Jain PA PA cp Wendi Aguilera MD MD ma2 Montse Miller RN RN ld1 Devin Lazo RN ll1 Corrections: (The following items were deleted from the chart) 09/16 13:37 13:36 Clindamycin 900 mg IVPB once over 30 mins; (mix in 50 mL) ordered. cp cp 15:03 15:03 Kayexalate (polystyrene) 30 grams PO once ordered. cp cp
[2021-09-16] MEDS ORDERED: INSULIN -REGULAR HUMAN 50 UNIT/0.5 ML ML ONE (15:21)
[2021-09-16 18:30] VITALS: TEMP 97.1
[2021-09-16 18:32] VITALS: BP 125/44; O2SAT 98
--- NOTE | 2021-09-17 08:09 | EKG ---
Test Date: 2021-09-16 Test Time: 12:42:27 Caustic Loader: AUGUST MEASUREMENT RESULTS: Intervals: Rate: 70 MN: QRSD: 172 QT: 464 QTc: 501 Tatum: P: 248 MN: QRS: 252 T: -13 INTERPRETIVE STATEMENTS: Atrial flutter with variable AV block Right bundle branch block Abnormal ECG Compared to ECG 08/02/2018 09:52:02 Sinus rhythm no longer present Left anterior fascicular block no longer present Bifascicular block no longer present Electronically Signed On 09-17-21 08:07:03 CDT by Francisco Saucedo
== END 2021-09-16 15:42 | disposition home or self-care (01) ==
LOC: ER 09:35
DX: K13.0 Diseases of lips (principal); S50.312A Abrasion of left elbow, initial encounter; S80.812A Abrasion, left lower leg, initial encounter; E87.5 Hyperkalemia; N18.6 End stage renal disease; Z99.2 Dependence on renal dialysis; E11.22 Type 2 diabetes mellitus with diabetic chronic kidney disease; I13.2 Hypertensive heart and chronic kidney disease with heart failure and with stage 5 chronic kidney disease, or end stage renal disease; I50.9 Heart failure, unspecified; W17.89XA Other fall from one level to another, initial encounter; Y93.01 Activity, walking, marching and hiking; D63.1 Anemia in chronic kidney disease; Z79.82 Long term (current) use of aspirin; Z88.5 Allergy status to narcotic agent; Z88.8 Allergy status to other drugs, medicaments and biological substances
CPT/HCPCS: 93005; 85025; 80048; 36415; 83735; 70450; 71250; 72125; 73080; 73590; J1815; J3010; 96365; 96375; 99284

== ENCOUNTER 2021-10-10 18:27 | Emergency (ER) | payer OTHER, BC ==
--- OUTSIDE RECORDS SUMMARY | 2021-10-10 18:29 | XMS REPORT | Continuity of Care Document ---
:1945 Author Organization [facility] t Address [address] [place] [address] Care Team Providers Name Role Phone Emily Fortune Attending Clinician Unavailable Problems This patient has no known problems. Allergies, Adverse Reactions, Alerts This patient has no known allergies or adverse reactions. Medications Ordered Filled Start Stop Current Ordering Indication Dosage Frequency Signature Comments Components Source Medication Medication Date Date Medication? Clinician (SIG) Name Name Advair HFA Advair HFA 0 Yes Naveed 2 puffs Common 1-15 [facility] Spirit 00:00: - [facility] 00 [facility] BD BD 2018-05 Yes Naveed 1 needle Common Ultra-Fine Ultra-Fine 0-09 Fortune with Sp jerome Christina Pen Christina Pen 00:00: [facility] Alva Alva 00 [facility] Tums E-X Tums E-X Yes Naveed 1 tablet C ommon 750 750 Fortune [facility] Basaglar Basaglar Yes Naveed 52 Units C ommon KwikPen KwikPen Fortune [facility] PreserVisio PreserVisio Yes Naveed as Common n AREDS n AREDS Fortune directed Spir it [facility] Citalopram Citalopram Yes Naveed 1 tablet Common Hydrobromid Hydrobromid Fortune [facility] e e [facility] Stool Stool Yes Naveed not Common Softener Softener Fortune defined Spi rit [facility] Gentle Gentle Yes Naveed 1 tablet Commo n Laxative Laxative Fortune as needed S pirit [facility] Atorvastati Atorvastati Yes Naveed 1 tablet Common n Calcium n Calcium Fortune Spir [facility] Contour Contour Yes Naveed USE 3 Common Test Test Fortune TIMES A [facility] Eliquis 2.5 Eliquis 2.5 Yes Naveed 1 tablet Common mg mg Fortune [facility] Multivitami Multivitami Yes Naveed as Common n Adult n Adult Fortune directed [facility] Carvedilol Carvedilol Yes Naveed TAKE 1 Common Fortune TABLET BY Spirit MOUTH - [facility] TWICE A DAY ON NON [facility] DIALYSIS Medical DAYS Center Atorvastati Atorvastati Yes Naveed TAKE 1 Common n Calcium n Calcium Fortune TABLET BY Spirit MOUTH - [facility] EVERY DAY [facility] GlipiZIDE GlipiZIDE Yes Naveed 1 tablet Common Fortune [facility] Basaglar Basaglar Yes Naveed 50 Units C ommon KwikPen KwikPen Fortune [facility] Procedures This patient has no known procedures. Encounters Start End Encounter Admission Attending Care Care Encounter Source Date/Time Date/Time Type Type Clinicians Facility Department ID 2021-06-25 Outpatient Fortune, STLMLC STLMLC [id number] Common 14:22:06 Naveed [id number] [facility] 2021-06-25 Outpatient Fortune, STLMLC STLMLC [id number] Common 14:13:51 Naveed [id number] [facility] 2021-06-25 Outpatient Fortune, STLMLC STLMLC [id number] Common 13:38:12 Naveed [id number] [facility] 2021-06-25 Outpatient Fortune, STLMLC STLMLC [id number] Common 12:43:29 Naveed [id number] [facility] 2021-06-25 Outpatient Fortune, STLMLC STLMLC [id number] Common 12:42:27 Naveed [id number] [facility] 2021-06-25 Outpatient Fortune, STLMLC STLMLC [id number] Common 12:31:12 Naveed [id number] [facility] 2021-06-25 Outpatient Fortune, STLMLC STLMLC [id number] Common 12:31:03 Naveed [id number] [facility] 2021-06-25 Outpatient Fortune, STLMLC STLMLC [id number] Common 12:30:21 Naveed [id number] [facility] 2021-06-25 Outpatient Fortune, STLMLC STLMLC [id number] Common 11:00:43 Naveed [id number] [facility] 2021-08-12 2021-08-12 ambulatory STLMLC STLMLC [id number] Common 00:00:00 00:00:00 [facility] 2021-07-28 2021-07-28 ambulatory STLMLC STLMLC [id number] Common 00:00:00 00:00:00 [facility] 2021-07-28 2021-07-28 ambulatory STLMLC STLMLC [id number] Common 00:00:00 00:00:00 [facility] 2021-06-12 2021-06-12 ambulatory STLMLC STLMLC [id number] Common 00:00:00 00:00:00 [facility] 2021-05-21 2021-05-21 ambulatory STLMLC STLMLC [id number] Common 00:00:00 00:00:00 [facility] 2021-04-28 2021-04-28 ambulatory STLMLC STLMLC [id number] Common 00:00:00 00:00:00 [facility] 2021-03-26 2021-03-26 Outpatient STLMLC STLMLC [id number] Common 00:00:00 00:00:00 [facility] 2021-03-12 2021-03-12 Outpatient STLMLC STLMLC [id number] Common 00:00:00 00:00:00 [facility] 2021-02-10 2021-02-10 Outpatient STLMLC STLMLC [id number] Common 00:00:00 00:00:00 [facility] 2021-01-31 2021-01-31 Outpatient STLMLC STLMLC [id number] Common 00:00:00 00:00:00 [facility] 2021-01-13 2021-01-13 Outpatient STLMLC STLMLC [id number] Common 00:00:00 00:00:00 [facility] 2021-01-08 2021-01-08 Outpatient STLMLC STLMLC [id number] Common 00:00:00 00:00:00 [facility] 2020-12-31 2020-12-31 Outpatient STLMLC STLMLC [id number] Common 00:00:00 00:00:00 [facility] 2020-12-11 2020-12-11 Outpatient STLMLC STLMLC [id number] Common 00:00:00 00:00:00 [facility] 2020-08-19 2020-08-19 Outpatient STLMLC STLMLC [id number] Common 00:00:00 00:00:00 [facility] 2020-07-19 2020-07-19 Outpatient STLMLC STLMLC [id number] Common 00:00:00 00:00:00 [facility] 2020-07-15 2020-07-15 Outpatient STLMLC STLMLC [id number] Common 00:00:00 00:00:00 [facility] 2020-06-14 2020-06-14 Outpatient STLMLC STLMLC [id number] Common 00:00:00 00:00:00 [facility] 2020-06-05 2020-06-05 Outpatient STLMLC STLMLC [id number] Common 00:00:00 00:00:00 [facility] 2020-04-23 2020-04-23 Outpatient STLMLC STLMLC [id number] Common 00:00:00 00:00:00 [facility] 2020-04-22 2020-04-22 Outpatient STLMLC STLMLC [id number] Common 00:00:00 00:00:00 [facility] 2020-04-17 2020-04-17 Outpatient STLMLC STLMLC [id number] Common 00:00:00 00:00:00 [facility] 2020-01-15 2020-01-15 [facility] [id number] Common 10:45:00 10:45:[address] [facility] 2019-10-16 2019-10-16 [facility] [id number] Common 13:00:00 13:00:[address] [facility] 2019-07-17 2019-07-17 [facility] [id number] Common 13:45:00 13:45:[address] [facility] 2019-06-14 2019-06-14 [facility] [id number] Common 11:45:00 11:45:[address] [facility] 2019-06-07 2019-06-07 [facility] [id number] Common 11:57:00 11:57:[address] [facility] 2019-05-17 2019-05-17 [facility] [id number] Common 11:30:00 11:30:[address] [facility] 2019-04-24 2019-04-24 [facility] [id number] Common 14:52:00 14:52:[address] [facility] 2019-04-19 2019-04-19 [facility] [id number] Common 14:45:00 14:45:[address] [facility] 2019-04-06 2019-04-06 [facility] [id number] Common 08:35:00 08:35:[address] [facility] 2019-04-04 2019-04-04 [facility] [id number] Common 08:34:00 08:34:[address] [facility] 2019-03-08 2019-03-08 [facility] [id number] Common 10:57:00 10:57:[address] [employer] [address] [facility] 2019-02-20 2019-02-20 Outpatient Cornelio Valentin [id number] Common 14:00:00 14:00:[address] [employer] [address] [facility] Results This patient has no known results.
[2021-10-10] MEDS ORDERED: HYDROCODONE/APAP 5/325 MG TAB ONE (20:20)
--- NOTE | 2021-10-10 21:06 | RAD REPORT ---
EXAM DESCRIPTION: RAD - Ankle Right 3 View - 10/10/2021 8:56 pm CLINICAL HISTORY: PAIN COMPARISON: No comparisons FINDINGS: Large calcaneal spur is present. Heavy vascular calcification. Oblique fracture is present of the distal fibular shaft. Mildly displaced intra-articular fracture of the medial malleolus is pr esent with screw in place.
--- NOTE | 2021-10-10 21:07 | RAD REPORT ---
EXAM DESCRIPTION: RAD - Foot Right 3 View - 10/10/2021 8:56 pm CLINICAL HISTORY: PAIN COMPARISON: Foot Right 3 View dated 08/05/2021 FINDINGS: Diffuse osteopenia is seen. Large plantar calcaneal spur is present. Heavy vascular calcif ication. No foot fracture detected.
--- NOTE | 2021-10-10 22:06 | EDPHYS ---
Physician Documentation [facility] Name: Guzman Mayers Age: 76 yrs Sex: Male : 1945 Arrival Date: 10/10/2021 Time: 18:30 Bed 10 Private MD: [facility] ED Physician Miller Cai HPI: 10/10 19:47 This 76 yrs old Male presents to ER via Unassigned with complaints of Leg ms3 Injury. 19:47 The patient presents with decreased range of motion, an injury, pain, that is acute. ms3 The complaints affect the right ankle. Context: The problem was sustained outdoors, resulted from the patient falling, while walking, twisting of the extremity, during a fall. Onset: The symptoms/episode began/occurred acutely, 1 hour(s) ago. Modifying factors: The symptoms are alleviated by remaining still, the symptoms are aggravated by. Associated signs and symptoms: The patient has no apparent associated signs or symptoms. Treatment prior to arrival includes: no previous treatment. 76-year-old male with past medical history of diabetes, end-stage renal disease on dialysis Tuesdays, , Saturdays presents for right ankle pain for 1 hour status post twisting his ankle while walking on an uneven sidewalk. Patient states movement makes the pain worse. Patient states keeping his ankle still improves the pain. Patient denies chest pain, shortness of breath, nausea, vomiting. Patient states he did not strike his head, did not lose consciousness, does not have a headache.. Historical: - Allergies: 20:23 Codeine; tw5 20:23 GABAPENTIN; tw5 - PMHx: 20:23 ADD/ADHD; CHF; CKD; COPD; Diabetes - IDDM; Dialysis; dialysis , , sat, uses o2 tw5 when sleeping.; High Cholesterol; HTN; Hypertension; - Immunization history:: Adult Immunizations up to date. - Social history:: Smoking status: unknown. ROS: 19:47 Constitutional: Negative for fever, and chills. Neck: Negative for injury, pain, and ms3 swelling, Cardiovascular: Negative for chest pain, and palpitations. Respiratory: Negative for shortness of breath, cough, wheezing, and pleuritic chest pain, Abdomen/GI: Negative for abdominal pain, nausea, vomiting, diarrhea, and constipation. 19:47 MS/extremity: Positive for injury or acute deformity, pain, tenderness. Exam: 19:47 Constitutional: This is a well developed, well nourished patient who is awake, alert, ms3 and in no acute distress. Head/Face: Normocephalic, atraumatic. Neck: Trachea midline, no cervical lymphadenopathy. Supple, full range of motion without nuchal rigidity, or vertebral point tenderness. No Meningismus. Chest/axilla: Normal chest wall appearance and motion. Nontender with no deformity. Cardiovascular: Regular rate and rhythm with a normal S1 and S2. No gallops, murmurs, or rubs. Normal PMI, no JVD. No pulse deficits. Respiratory: Lungs have equal breath sounds bilaterally, clear to auscultation and percussion. No rales, rhonchi or wheezes noted. No increased work of breathing, no retractions or nasal flaring. Abdomen/GI: Soft, non-tender, with normal bowel sounds. No distension or tympany. No guarding or rebound. No evidence of tenderness throughout. Skin: Warm, dry with normal turgor. Normal color with no rashes, no lesions, and no evidence of cellulitis. 19:47 Musculoskeletal/extremity: Extremities: noted in the right ankle: pain, tenderness. Vital Signs: 22:14 BP 162 / 74; Pulse 61; Resp 18; Temp 98.6(O); Pulse Ox 95% on R/A; Weight 91.17 kg; tw5 Height 5 ft. 10 in. (177.80 cm); Pain 2/10; 22:14 Body Mass Index 28.84 (91.17 kg, 177.80 cm) tw5 MDM: 19:47 Differential diagnosis: dislocation, closed fracture, contusion. ms3 19:55 Patient medically screened. ms3 22:06 Data reviewed: vital signs, nurses notes, radiologic studies, plain films. Data ms3 interpreted:. Counseling: I had a detailed discussion with the patient and/or guardian regarding: the historical points, exam findings, and any diagnostic results supporting the discharge/admit diagnosis, radiology results, the need for outpatient follow up, to return to the emergency department if symptoms worsen or persist or if there are any questions or concerns that arise at home. 10/10 20:56 Order name: Ankle Right 3 View; Complete Time: 21:16 EDMS 10/10 20:57 Order name: Foot Right 3 View; Complete Time: 21:16 EDMS Administered Medications: 20:21 Drug: HYDROcodone-acetaminophen 5 mg-325 mg 1 tabs Route: PO; tw5 Disposition Summary: 10/10/21 22:05 Discharge Ordered Location: Home ms3 Condition: Stable ms3 Diagnosis - Nondisplaced spiral fracture of shaft of right fibula, initial encounter for closed ms3 fracture - Nondisplaced fracture of medial malleolus of right tibia ms3 - Fall (on)(from) sidewalk curb ms3 Followup: ms3 - With: Matt Underwood MD - When: 2 - 3 days - Reason: Recheck today's complaints Discharge Instructions: - Discharge Summary Sheet ms3 - Nondisplaced Fibular Ankle Fracture Treated With Immobilization ms3 Forms: - Medication Reconciliation Form ms3 - Thank You Letter ms3 - Antibiotic Education ms3 - Prescription Opioid Use ms3 Signatures: Dispatcher [employer] EDMS Miller Cai DO DO ms3 Stephanie Alvarez tw5 Omaira Fisher, RN RN vc1 Corrections: (The following items were deleted from the chart) 20:56 19:47 Ankle Left 3 View+RAD.RAD.BRZ ordered. EDMS EDMS 20:57 19:47 Foot Left 3 View+RAD.RAD.BRZ ordered. EDMS EDMS
--- NOTE | 2021-10-10 22:06 | ER ---
Nurse's Notes [facility] Name: Guzman Mayers Age: 76 yrs Sex: Male : 1945 Arrival Date: 10/10/2021 Time: 18:30 Bed 10 Private MD: Naveed Fortune Diagnosis: Nondisplaced spiral fracture of shaft of right fibula, initial encounter for closed fracture;Nondisplaced fracture of medial malleolus of right tibia;Fall (on)(from) sidewalk curb Presentation: 10/10 19:50 Chief complaint: Patient states: "I stepped off a curb and rolled my ankle". vc1 19:50 Coronavirus screen:. Risk Assessment: Do you want to hurt yourself or someone else? vc1 Patient reports no desire to harm self or others. Onset of symptoms was October 10, 2021. 19:50 Method Of Arrival: Wheelchair vc1 19:50 Acuity: CHICHO 3 vc1 22:15 Ebola Screen: Patient negative for fever greater than or equal to 101.5 degrees tw5 Fahrenheit, and additional compatible Ebola Virus Disease symptoms Patient denies exposure to infectious person. Patient denies travel to an Ebola-affected area in the 21 days before illness onset. Initial Sepsis Screen: Does the patient meet any 2 criteria? No. Patient's initial sepsis screen is negative. Does the patient have a suspected source of infection? No. Patient's initial sepsis screen is negative. Triage Assessment: 22:04 General: Appears in no apparent distress. Behavior is calm, cooperative, appropriate vc1 for age. Injury Description:. Historical: - Allergies: 20:23 Codeine; tw5 20:23 GABAPENTIN; tw5 - PMHx: 20:23 ADD/ADHD; CHF; CKD; COPD; Diabetes - IDDM; Dialysis; dialysis tues, thurs, sat, uses o2 tw5 when sleeping.; High Cholesterol; HTN; Hypertension; - Immunization history:: Adult Immunizations up to date. - Social history:: Smoking status: unknown. Screenin:50 Abuse screen: Denies threats or abuse. Nutritional screening: No deficits noted. vc1 Tuberculosis screening: No symptoms or risk factors identified. Fall Risk Fall in past 12 months (25 points). Secondary diagnosis (15 points) No IV (0 pts). Ambulatory Aid- None/Bed Rest/Nurse Assist (0 pts). Gait- Weak (10 pts.). Mental Status- Oriented to own ability (0 pts). Total Stout Fall Scale indicates High Risk Score (45 or more points). Fall prevention measures have been instituted. Family Present and informed to notify staff if the need to leave the bedside. Assessment: 20:21 General: Reports "I was just stepping down off a curb when I ankle rolled. If I am just tw5 sitting here it doesn't hurt that much but if someone touches it or I try and move it it hurts a lot, like a burning sensation.". Pain: Complains of pain in right ankle Pain currently is 3 out of 10 on a pain scale. at worst was 7 out of 10 on a pain scale. Derm: Skin is intact. Musculoskeletal: Swelling present in right ankle. 22:14 Reassessment: Patient states feeling better. General: Appears in no apparent distress. tw5 Behavior is calm, cooperative, appropriate for age. Vital Signs: 22:14 BP 162 / 74; Pulse 61; Resp 18; Temp 98.6(O); Pulse Ox 95% on R/A; Weight 91.17 kg; tw5 Height 5 ft. 10 in. (177.80 cm); Pain 2/10; 22:14 Body Mass Index 28.84 (91.17 kg, 177.80 cm) tw5 ED Course: 18:30 Patient arrived in ED. as 18:31 Naveed Fortune DO is Private Physician. as 19:33 Miller Cai DO is Attending Physician. ms3 20:21 Stephanie Alvarez is Primary Nurse. tw5 20:23 Patient has correct armband on for positive identification. Door closed. tw5 20:56 Ankle Right 3 View In Process Unspecified. EDMS 20:57 Foot Right 3 View In Process Unspecified. EDMS 22:03 Triage completed. vc1 22:03 Matt Underwood MD is Referral Physician. ms3 22:05 Arm band placed on right wrist. vc1 22:06 Orthoglass splint: Posterior short lleg splint applied on right leg. oe 22:14 No provider procedures requiring assistance completed. Patient did not have IV access tw5 during this emergency room visit. Administered Medications: 20:21 Drug: HYDROcodone-acetaminophen 5 mg-325 mg 1 tabs Route: PO; tw5 Medication: 22:14 VIS not applicable for this client. tw5 Outcome: 22:05 Discharge ordered by . ms3 22:14 Discharged to home via wheelchair, with family. tw5 22:14 Condition: improved 22:14 Discharge instructions given to patient, Instructed on discharge instructions, follow up and referral plans. Demonstrated understanding of instructions, follow-up care, splint care. 22:15 Patient left the ED. tw5 Signatures: Dispatcher [employer] EDMS Bia Yoon [place] oe Sims, Marcus, DO DO ms3 Shyla Alvarezfany tw5 Omaira Fisher, RN RN vc1
[2021-10-11 15:38] VITALS: BP 162/74; TEMP 98.6; O2SAT 95
== END 2021-10-10 22:15 | disposition home or self-care (01) ==
LOC: ER 18:27
PROC: 2W3QX1Z Immobilization of Right Lower Leg using Splint (ICD-10-PCS; principal; 2021-10-10)
DX: S82.444A Nondisplaced spiral fracture of shaft of right fibula, initial encounter for closed fracture (principal); S82.54XA Nondisplaced fracture of medial malleolus of right tibia, initial encounter for closed fracture; W10.1XXA Fall (on)(from) sidewalk curb, initial encounter; E11.22 Type 2 diabetes mellitus with diabetic chronic kidney disease; I13.2 Hypertensive heart and chronic kidney disease with heart failure and with stage 5 chronic kidney disease, or end stage renal disease; N18.6 End stage renal disease; I50.9 Heart failure, unspecified; Z99.2 Dependence on renal dialysis; Z88.8 Allergy status to other drugs, medicaments and biological substances; Z88.5 Allergy status to narcotic agent
CPT/HCPCS: 99283

== ENCOUNTER 2021-10-15 13:16 | Observation (INO) | payer OTHER, BC ==
--- OUTSIDE RECORDS SUMMARY | 2021-10-15 13:19 | XMS REPORT | Continuity of Care Document ---
:1945 Author Organization [facility] t Address [address] [place] [address] Care Team Providers Name Role Phone [phone] Attending Clinician Unavailable Emily Fortune Attending Clinician Unavailable [phone] Admitting Clinician Unavailable Problems This patient has no known problems. Allergies, Adverse Reactions, Alerts This patient has no known allergies or adverse reactions. Medications Ordered Filled Start Stop Current Ordering Indication Dosage Frequency Signature Comments Components Source Medication Medication Date Date Medication? Clinician (SIG) Name Name Advair HFA Advair HFA 0 Yes Naveed 2 puffs Common 1-15 [facility] 00:00: - [facility] 00 [facility] BD BD 2018-05 Yes Naveed 1 needle Common Ultra-Fine Ultra-Fine 0-09 Fortune with Sp jerome Christina Pen Christina Pen 00:00: [facility] [place] 00 [facility] Tums E-X Tums E-X Yes Naveed 1 tablet C ommon 750 750 Fortune [facility] Basaglar Basaglar Yes Naveed 52 Units C ommon KwikPen KwikPen Fortune [facility] PreserVisio PreserVisio Yes Naveed as Common n AREDS n AREDS Fortune directed Spir it [facility] Citalopram Citalopram Yes Naveed 1 tablet Common Hydrobromid Hydrobromid Fortune [facility] e e [facility] Stool Stool Yes Naveed not Common Softener Softener Fortune defined Spi rit [facility] Gentle Gentle Yes Naveed 1 tablet Commo n Laxative Laxative Fortune as needed S pirit [facility] Atorvastati Atorvastati Yes Naveed 1 tablet Common n Calcium n Calcium Fortune [facility] Contour Contour Yes Naveed USE 3 Common Test Test Fortune TIMES A [facility] Eliquis 2.5 Eliquis 2.5 Yes Naveed 1 tablet Common mg mg Fortune [facility] Multivitami Multivitami Yes Naveed as Common n Adult n Adult Fortune directed [facility] Carvedilol Carvedilol Yes Naveed TAKE 1 Common Fortune TABLET BY Spirit MOUTH - [facility] TWICE A DAY ON [facility] DA[facility] Center Atorvastati Atorvastati Yes Navede TAKE 1 Common n Calcium n Calcium Fortune TABLET BY [facility] MOUTH - [facility] EVERY DAY [facility] GlipiZIDE GlipiZIDE Yes Naveed 1 tablet Common Fortune [facility] Basaglar Basaglar Yes Naveed 50 Units C ommon KwikPen KwikPen Fortune [facility] Procedures This patient has no known procedures. Encounters Start End Encounter Admission Attending Care Care Encounter Source Date/Time Date/Time Type Type Clinicians Facility Department ID 2021-10-15 Outpatient [id number] [facility] REF [id number] [facility] 08:19:25 5172021-10-14 Outpatient 3 [id number] [facility] REF [id number] [facility] 11:59:03 0517 2021-06-25 Outpatient Fortune, [facility] [id number] Common 14:22:06 Naveed [id number] [facility] 2021-06-25 Outpatient Fortune, [facility] [id number] Common 14:13:51 Naveed [id number] [facility] 2021-06-25 Outpatient Fortune, [facility] [id number] Common 13:38:12 Naveed [id number] [facility] 2021-06-25 Outpatient Fortune, [facility] [id number] Common 12:43:29 Naveed [id number] [facility] 2021-06-25 Outpatient Fortune, STLMLC [facility] [id number] Common 12:42:27 Naveed [id number] [facility] 2021-06-25 Outpatient Fortune, STLMLC [facility] [id number] Common 12:31:12 Naveed [id number] [facility] 2021-06-25 Outpatient Fortune, STLMLC [facility] [id number] Common 12:31:03 Naveed [id number] [facility] 2021-06-25 Outpatient Fortune, STLMLC [facility] [id number] Common 12:30:21 Naveed [id number] [facility] 2021-06-25 Outpatient Fortune, STLMLC [facility] [id number] Common 11:00:43 Naveed [id number] [facility] 2021-08-12 2021-08-12 ambulatory STLMLC [facility] [id number] Common 00:00:00 00:00:00 [facility] 2021-07-28 2021-07-28 ambulatory STLMLC [facility] [id number] Common 00:00:00 00:00:00 [facility] 2021-07-28 2021-07-28 ambulatory STLMLC [facility] [id number] Common 00:00:00 00:00:00 [facility] 2021-06-12 2021-06-12 ambulatory STLMLC [facility] [id number] Common 00:00:00 00:00:00 [facility] 2021-05-21 2021-05-21 ambulatory STLMLC [facility] [id number] Common 00:00:00 00:00:00 [facility] 2021-04-28 2021-04-28 ambulatory STLMLC [facility] [id number] Common 00:00:00 00:00:00 [facility] 2021-03-26 2021-03-26 Outpatient STLMLC [facility] [id number] Common 00:00:00 00:00:00 [facility] 2021-03-12 2021-03-12 Outpatient STLMLC [facility] [id number] Common 00:00:00 00:00:00 [facility] 2021-02-10 2021-02-10 Outpatient STLMLC [facility] [id number] Common 00:00:00 00:00:00 [facility] 2021-01-31 2021-01-31 Outpatient STLMLC [facility] [id number] Common 00:00:00 00:00:00 [facility] 2021-01-13 2021-01-13 Outpatient STLMLC [facility] [id number] Common 00:00:00 00:00:00 [facility] 2021-01-08 2021-01-08 Outpatient STLMLC [facility] [id number] Common 00:00:00 00:00:00 [facility] 2020-12-31 2020-12-31 Outpatient STLMLC [facility] [id number] Common 00:00:00 00:00:00 [facility] 2020-12-11 2020-12-11 Outpatient STLMLC [facility] [id number] Common 00:00:00 00:00:00 [facility] 2020-08-19 2020-08-19 Outpatient STLMLC [facility] [id number] Common 00:00:00 00:00:00 [facility] 2020-07-19 2020-07-19 Outpatient STLMLC [facility] [id number] Common 00:00:00 00:00:00 [facility] 2020-07-15 2020-07-15 Outpatient STLMLC [facility] [id number] Common 00:00:00 00:00:00 [facility] 2020-06-14 2020-06-14 Outpatient STLMLC [facility] [id number] Common 00:00:00 00:00:00 [facility] 2020-06-05 2020-06-05 Outpatient STLMLC ST[facility] [id number] Common 00:00:00 00:00:00 [facility] 2020-04-23 2020-04-23 Outpatient STLMLC [facility] [id number] Common 00:00:00 00:00:00 [facility] 2020-04-22 2020-04-22 Outpatient STLMLC [facility] [id number] Common 00:00:00 00:00:00 [facility] 2020-04-17 2020-04-17 Outpatient [facility] [id number] Common 00:00:00 00:00:00 [facility] 2020-01-15 2020-01-15 [facility] [id number] Common 10:45:00 10:45:[address] [facility] 2019-10-16 2019-10-16 [facility] [id number] Common 13:00:00 13:00:[address] [facility] 2019-07-17 2019-07-17 [facility] [id number] Common 13:45:00 13:45:[address] [facility] 2019-06-14 2019-06-14 [facility] [id number] Common 11:45:00 11:45:[address] [facility] 2019-06-07 2019-06-07 [facility] [id number] Common 11:57:00 11:57:[address] [facility] 2019-05-17 2019-05-17 [facility] [id number] Common 11:30:00 11:30:[address] [facility] 2019-04-24 2019-04-24 [facility] [id number] Common 14:52:00 14:52:[address] [facility] 2019-04-19 2019-04-19 [facility] [id number] Common 14:45:00 14:45:[address] [facility] 2019-04-06 2019-04-06 [facility] [id number] Common 08:35:00 08:35:[address] [facility] 2019-04-04 2019-04-04 [facility] [id number] Common 08:34:00 08:34:[address] [facility] 2019-03-08 2019-03-08 Outpatient Cornelio Grimest [id number] Common 10:57:00 10:57:[address] [facility] 2019-02-20 2019-02-20 Outpatient Cornelio Grimest [id number] Common 14:00:00 14:00:[address] [facility] Results This patient has no known results.
--- NOTE | 2021-10-15 14:53 | RAD REPORT ---
EXAM DESCRIPTION: RAD - Chest Single View - 10/15/2021 2:46 pm CLINICAL HISTORY: anemia COMPARISON: Chest Pa And Lat (2 Views) dated 06/06/2019; Chest Pa And Lat (2 Views) dated 08/03/2018; Ch est Single View dated 08/02/2018; Chest Pa And Lat (2 Views) dated 05/20/2018 FINDINGS: Lines: None. Lungs: No evidence of edema or pneumonia. Pleural: No significant pleural effusions or pneumothorax. Cardiac: Cardiomegaly Bones: No acute fractures. Remote left-sided rib fractures. Other: IMPRESSION: No acute cardiopulmonary disease.
--- NOTE | 2021-10-15 14:56 | RAD REPORT ---
EXAM DESCRIPTION: RAD - Tib Fib Right - 10/15/2021 2:48 pm CLINICAL HISTORY: PAIN COMPARISON: Foot Right 3 View dated 10/10/2021; Tib Fib Left dated 09/16/2021; Ankle Right 3 View date d 10/10/2021 FINDINGS: No distal fibular fracture with similar alignment. No malalignment. No significant focal d egenerative changes. Cannulated screw in the medial malleolus. Peripheral vascular calcifications. IMPRESSION: Known distal fibular and medial malleolar fractures with similar alignment. No new acute findings.
--- NOTE | 2021-10-15 15:19 | RAD REPORT ---
EXAM DESCRIPTION: US - Extremity Venous Uni Ltd - 10/15/2021 2:59 pm CLINICAL HISTORY: Pain COMPARISON: None. TECHNIQUE: Real-time sonographic evaluation of the right lower extremity deep venous system was perf ormed. FINDINGS: Patent femoral vein, greater saphenous vein, common femoral vein, and popliteal vein. The below the knee veins were incompletely evaluated due to presence of a cast. Color Doppler, grayscale, and spectral analysis was performed. IMPRESSION: Limited visualization of the veins below the knee due to presence of a cast. No deep rayray ous thrombosis identified within the veins above the knee.
[2021-10-15 17:11] LABS: Hematocrit 21.9 % (39.6-49.0); Lymphocytes % 20.9 % (15.3-44.8); MPV 7.5 fL (7.6-11.3); RBC Red Blood Cell Count 1.92 M/uL (4.33-5.43)
[2021-10-15 17:15] LABS: Protime INR 1.37
[2021-10-15] MEDS ORDERED: FENTANYL CITR 100 MCG/2 ML ONE (17:21)
[2021-10-15 17:42] LABS: Magnesium 2.3 mg/dL (1.8-2.4); Potassium 4.5 mmol/L (3.5-5.1); Troponin High Sensitivity 184.3 pg/mL (<58.9)
--- NOTE | 2021-10-15 18:53 | ER ---
Nurse's Notes [facility] Name: Guzman Mayers Age: 76 yrs Sex: Male : 1945 Arrival Date: 10/15/2021 Time: 13:36 Bed 5 Private MD: Naveed Fortune Diagnosis: Anemia in chronic kidney disease Presentation: 10/15 13:55 Chief complaint: Patient states: dialysis called and notified the patient that he needs ap3 to come in for a blood transfusion. Patient also has right lower leg pain from a recent fracture and would like information on an orthopedic DrTasha for follow up. Coronavirus screen: At this time, the client does not indicate any symptoms associated with coronavirus-19. Ebola Screen: No symptoms or risks identified at this time. Initial Sepsis Screen: Does the patient meet any 2 criteria? No. Patient's initial sepsis screen is negative. Does the patient have a suspected source of infection? No. Patient's initial sepsis screen is negative. Risk Assessment: Do you want to hurt yourself or someone else? Patient reports no desire to harm self or others. Onset of symptoms was October 15, 2021. 13:55 Method Of Arrival: Wheelchair ap3 13:55 Acuity: CHICHO 3 ap3 Triage Assessment: 13:59 General: Appears in no apparent distress. Behavior is calm, cooperative. Pain: ap3 Complains of pain in right leg Pain currently is 0 out of 10 on a pain scale. at worst was 10 out of 10 on a pain scale. Quality of pain is described as stabbing, Is intermittent. Neuro: Level of Consciousness is awake, alert, obeys commands, Oriented to person, place, time, situation, Appropriate for age Speech is normal. Cardiovascular: Patient's skin is warm and dry. Respiratory: Airway is patent Respiratory effort is even, unlabored, Respiratory pattern is regular, symmetrical. Musculoskeletal: Reports pain in right leg. Historical: - Allergies: 13:58 Codeine; ap3 13:58 GABAPENTIN; ap3 - PMHx: 13:58 ADD/ADHD; CHF; CKD; COPD; Diabetes - IDDM; High Cholesterol; dialysis tues, thurs, sat, ap3 uses o2 when sleeping.; HTN; Dialysis; Hypertension; - Immunization history:: Client reports receiving the 2nd dose of the Covid vaccine. - Social history:: Smoking status: Patient denies any tobacco usage or history of. Screenin:00 Abuse screen: Denies threats or abuse. Nutritional screening: No deficits noted. ap3 Tuberculosis screening: No symptoms or risk factors identified. 17:33 Fall Risk Secondary diagnosis (15 points). tw2 Assessment: 19:00 Reassessment: Patient and/or family updated on plan of care and expected duration. Pain ll3 level reassessed. Patient is alert, oriented x 3, equal unlabored respirations, skin warm/dry/pink. 20:00 Reassessment: Patient and/or family updated on plan of care and expected duration. Pain ll3 level reassessed. Patient is alert, oriented x 3, equal unlabored respirations, skin warm/dry/pink. 21:31 Reassessment: Patient and/or family updated on plan of care and expected duration. Pain ll3 level reassessed. Patient is alert, oriented x 3, equal unlabored respirations, skin warm/dry/pink. Vital Signs: 13:55 BP 144 / 55; Pulse 60; Pulse Ox 98% ; Weight 91.17 kg; Height 5 ft. 10 in. (177.80 cm); ap3 13:55 Weight 91.17 kg; Height 5 ft. 10 in. (177.80 cm); ap3 17:32 BP 160 / 71; Pulse 61; Resp 15; Pulse Ox 97% on R/A; tw2 19:00 BP 175 / 67; Pulse 62; Resp 15; Pulse Ox 100% on NC; ll3 20:00 BP 163 / 63; Pulse 61; Resp 14; Pulse Ox 100% on NC; ll3 21:00 BP 154 / 67; Pulse 67; Resp 12; Pulse Ox 100% on NC; ll3 22:00 BP 167 / 80; Pulse 61; Resp 18; Pulse Ox 100% ; ll3 22:53 BP 145 / 79; Pulse 64; Resp 14; Pulse Ox 100% on 2 lpm NC; ll3 13:55 Body Mass Index 28.84 (91.17 kg, 177.80 cm) ap3 ED Course: 13:36 Patient arrived in ED. am2 13:37 Naveed Fortune DO is Private Physician. am2 13:38 Anderson Feldman PA is PHCP. cp 13:38 Miller Cai DO is Attending Physician. cp 13:58 Triage completed. ap3 14:00 Arm band placed on right wrist. ap3 14:48 XRAY Chest (1 view) In Process Unspecified. EDMS 14:48 XRAY Tib Fib RIGHT In Process Unspecified. EDMS 14:58 US Extremity Venous Unilateral Ltd In Process Unspecified. EDMS 16:14 Bed in low position. Call light in reach. Client placed on continuous cardiac and pulse tw2 oximetry monitoring. NIBP monitoring applied. monitoring tech on. Pulse ox on. 16:59 Libra Alvarez, RN is Primary Nurse. ww 17:05 Inserted saline lock: 20 gauge in right forearm, using aseptic technique. Blood ss collected. 18:53 Elisa Bello PA is Hospitalizing Provider. cp 19:12 Wendi Ruiz MD is Hospitalizing Provider. cp 19:15 Primary Nurse role handed off by Libra Alvarez, RN mw2 23:04 Hu Cortez RN is Primary Nurse. ll3 23:04 No provider procedures requiring assistance completed. Patient admitted, IV remains in ll3 place. No redness/swelling at site. Administered Medications: 16:32 CANCELLED (Physician Discretion): Hydrocodone-Acetaminophen (7.5 mg-325 mg) 1 tabs PO cp once; RASS on ADMIN: Combtv4, Very Agttd3, Agttd2, Rstlss1, AlertClm0, Drwsy-1, Lt Sdtn-2, Mod Sdtn-3, Dp Sdtn-4, UnArsble-5 17:25 Drug: fentaNYL (PF) 25 mcg Route: IVP; Site: right forearm; ww 18:59 Follow up: Response: No adverse reaction; Pain is decreased; RASS: Alert and Calm (0) tw2 19:40 Drug: Insulin Regular Human 10 units {Co-Signature: as6 (Manolo Ramirez RN).} Route: ll3 IVP; Site: right antecubital; 21:24 Follow up: Response: No adverse reaction; Blood sugar is lowered ll3 Medication: 14:00 VIS not applicable for this client. ap3 Point of Care Testing: Blood Glucose: 21:20 Blood Glucose: 177 mg/dL; ll3 Ranges: Outcome: 18:53 Decision to Hospitalize by Provider. cp 23:04 Admitted to Med/surg accompanied by tech, via wheelchair, room 211, with oxygen, with ll3 chart, Report called to GILSON Seymour 23:04 Condition: stable 23:04 Discharge instructions given to patient, Instructed on the need for admit, Demonstrated understanding of instructions. 23:10 Patient left the ED. as6 Signatures: Dispatcher [employer] EDMS Taniya Gomez, RN RN ss Anderson Feldman PA PA cp Wise, Tara RN RN tw2 Juana Keys am2 Juana Lakhani RN RN ap3 [place] 2 Manolo Ramirez, RN RN as6 Hu Cortez RN RN ll3 Libra Alvarez RN RN ww Manolo Ramirez RN as6
--- NOTE | 2021-10-15 18:53 | EDPHYS ---
Physician Documentation [facility] Name: Guzman Mayers Age: 76 yrs Sex: Male : 1945 Arrival Date: 10/15/2021 Time: 13:36 Bed 5 Private MD: Tong [facility] ED Physician Miller Cai HPI: 10/15 14:20 This 76 yrs old Male presents to ER via Wheelchair with complaints of Leg cp Pain, blood transfusion. 14:20 The patient presents with an injury, pain, that is acute. The complaints affect the cp right ankle. Context: Patient reports history of right ankle fracture sustained 5 days ago. Currently in a splint. Patient reports he has not been able to f/u with ortho. 14:20 Patient referred to ED by DR Olmstead for anemia. Patient reports he was told to go to ED for blood transfusion due to hemoglobin level of 5.8. Historical: - Allergies: 13:58 Codeine; ap3 13:58 GABAPENTIN; ap3 - PMHx: 13:58 ADD/ADHD; CHF; CKD; COPD; Diabetes - IDDM; High Cholesterol; dialysis tues, thurs, sat, ap3 uses o2 when sleeping.; HTN; Dialysis; Hypertension; - Immunization history:: Client reports receiving the 2nd dose of the Covid vaccine. - Social history:: Smoking status: Patient denies any tobacco usage or history of. ROS: 14:30 Constitutional: Negative for body aches, chills, fever, poor PO intake. cp 14:30 Eyes: Negative for injury, pain, redness, and discharge. cp 14:30 ENT: Negative for drainage from ear(s), ear pain, sore throat, difficulty swallowing. 14:30 Cardiovascular: Negative for chest pain, palpitations. 14:30 Respiratory: Negative for cough, shortness of breath, wheezing. 14:30 Abdomen/GI: Negative for abdominal pain, vomiting, diarrhea, constipation. 14:30 Neuro: Negative for altered mental status, dizziness, headache, syncope, weakness. 14:30 All other systems are negative. Exam: 14:33 Constitutional: The patient appears in no acute distress, alert, awake, cp non-diaphoretic, non-toxic, well developed, well nourished, obese. 14:33 Head/Face: Normocephalic, atraumatic. cp 14:33 Eyes: Periorbital structures: appear normal, Conjunctiva: normal, no exudate, no injection, Sclera: no appreciated abnormality, Lids and lashes: appear normal, bilaterally. 14:33 ENT: External ear(s): are unremarkable, Nose: is normal, Mouth: Lips: moist, Oral mucosa: moist, Posterior pharynx: Airway: no evidence of obstruction, patent. 14:33 Neck: ROM/movement: is normal, is supple, without pain, no range of motions limitations. 14:33 Chest/axilla: Inspection: normal. 14:33 Cardiovascular: Rate: normal, Rhythm: regular, JVD: is not appreciated. 14:33 Respiratory: the patient does not display signs of respiratory distress, Respirations: normal, no use of accessory muscles, no retractions, labored breathing, is not present, Breath sounds: are clear throughout, no decreased breath sounds. 14:33 Abdomen/GI: Inspection: abdomen appears normal, Palpation: abdomen is soft and non-tender, in all quadrants, Rectal exam: the exam is deferred, because of patient request. 14:33 Back: pain, is absent, ROM is normal. 14:33 Musculoskeletal/extremity: Extremities: noted in the right lower leg: pain, swelling, right ankle tenderness, Perfusion: the extremity is with brisk capillary refill. 14:33 Skin: cellulitis, is not appreciated, no rash present. 14:33 Neuro: Orientation: to person, place \\T\\ time. Mentation: is normal. Vital Signs: 13:55 BP 144 / 55; Pulse 60; Pulse Ox 98% ; Weight 91.17 kg; Height 5 ft. 10 in. (177.80 cm); ap3 13:55 Weight 91.17 kg; Height 5 ft. 10 in. (177.80 cm); ap3 17:32 BP 160 / 71; Pulse 61; Resp 15; Pulse Ox 97% on R/A; tw2 19:00 BP 175 / 67; Pulse 62; Resp 15; Pulse Ox 100% on NC; ll3 20:00 BP 163 / 63; Pulse 61; Resp 14; Pulse Ox 100% on NC; ll3 21:00 BP 154 / 67; Pulse 67; Resp 12; Pulse Ox 100% on NC; ll3 22:00 BP 167 / 80; Pulse 61; Resp 18; Pulse Ox 100% ; ll3 22:53 BP 145 / 79; Pulse 64; Resp 14; Pulse Ox 100% on 2 lpm NC; ll3 13:55 Body Mass Index 28.84 (91.17 kg, 177.80 cm) ap3 MDM: 15:00 Differential diagnosis: dislocation, open fracture, closed fracture, contusion, GI cp bleed, anemia of chronic kidney disease, non-stemi. 16:19 Patient medically screened. 18:00 Data reviewed: vital signs, nurses notes, lab test result(s), EKG, radiologic studies, cp plain films, ultrasound. 18:00 Test interpretation: by ED physician or midlevel provider: ECG, plain radiologic cp studies. 18:40 Physician consultation: Anita Sanchez MD was called at 18:15, was contacted at 18:40, regarding patient's condition, would like patient admitted to receive 1 unit of blood and to have dialysis in morning. 10/15 14:09 Order name: Basic Metabolic Panel; Complete Time: 17:47 10/15 17:47 Interpretation: Normal except: NA 133; GLUC 342; BUN 54; CRE 7.36; GFR 7. 10/15 14:09 Order name: CBC with Diff; Complete Time: 17:24 10/15 17:24 Interpretation: Normal except: RBC 1.92; HGB 7.5; HCT 21.9; MCV 113.8; MCH 39.1; RDW cp 15.7; MPV 7.5. 10/15 14:09 Order name: Magnesium; Complete Time: 17:47 10/15 14:09 Order name: NT PRO-BNP; Complete Time: 17:47 10/15 17:47 Interpretation: Abnormal: NT PRO-BNP 32154. 10/15 14:09 Order name: PT-INR; Complete Time: 17:24 10/15 17:24 Interpretation: PT 15.2; Reviewed. 10/15 14:09 Order name: Troponin HS; Complete Time: 17:47 10/15 17:47 Interpretation: Abnormal: Troponin HS 184.3. 10/15 14:07 Order name: US Extremity Venous Unilateral Ltd; Complete Time: 19:37 10/15 14:09 Order name: XRAY Chest (1 view); Complete Time: 16:01 10/15 14:09 Order name: XRAY Tib Fib RIGHT; Complete Time: 16:01 10/15 19:07 Order name: COVID-19 SARS RT PCR (Document "Date of Onset" if Symptomatic) 10/15 21:36 Order name: Glucose, Ancillary Testing EDMS 10/15 14:09 Order name: EKG; Complete Time: 14:09 10/15 14:09 Order name: Cardiac monitoring; Complete Time: 17:26 10/15 14:09 Order name: EKG - Nurse/Tech; Complete Time: 18:52 10/15 14:09 Order name: IV Saline Lock; Complete Time: 17:04 10/15 14:09 Order name: Labs collected and sent; Complete Time: 17:04 10/15 14:09 Order name: O2 Per Protocol; Complete Time: 17:26 10/15 14:09 Order name: O2 Sat Monitoring; Complete Time: 17:26 10/15 18:49 Order name: Wound dressing: replace splint; Complete Time: 19:42 cp Administered Medications: 16:32 CANCELLED (Physician Discretion): Hydrocodone-Acetaminophen (7.5 mg-325 mg) 1 tabs PO cp once; RASS on ADMIN: Combtv4, Very Agttd3, Agttd2, Rstlss1, AlertClm0, Drwsy-1, Lt Sdtn-2, Mod Sdtn-3, Dp Sdtn-4, UnArsble-5 17:25 Drug: fentaNYL (PF) 25 mcg Route: IVP; Site: right forearm; 18:59 Follow up: Response: No adverse reaction; Pain is decreased; RASS: Alert and Calm (0) tw2 19:40 Drug: Insulin Regular Human 10 units {Co-Signature: as6 (Manolo Ramirez RN).} Route: ll3 IVP; Site: right antecubital; 21:24 Follow up: Response: No adverse reaction; Blood sugar is lowered ll3 Point of Care Testing: Blood Glucose: 21:20 Blood Glucose: 177 mg/dL; ll3 Ranges: Critical Glucose Levels:Adult <50 mg/dl or >400 mg/dl <40 mg/dl or >180 mg/dl Disposition Summary: 10/15/21 18:53 Hospitalization Ordered Hospitalization Status: Observation cp Location: Telemetry/MedSurg (observation) cp Condition: Fair cp Problem: new cp Symptoms: have improved cp Bed/Room Type: Standard cp Provider: Wendi Ruiz(10/15/21 19:13) cp Room Assignment: 211(10/15/21 21:56) cg Diagnosis - Anemia in chronic kidney disease cp Forms: - Medication Reconciliation Form cp - SBAR form cp Addendum: 10/20/2021 18:18 Co-signature as Attending Physician, Miller Cai DO I was immediately available on-site m s3 in the Emergency Department for consultation in the care of the patient.. Signatures: Dispatcher [employer] EDMS Anderson Feldman PA PA cp Garcia, Cindy RN RN Juana Talavera RN RN ap3 Miller Cai DO DO ms3 Hu Cortez RN RN ll3 Libra Alvarez RN Elisa Harris PA PA sb3 Jing Louise RN tw2 Manolo Ramirez RN as6 Corrections: (The following items were deleted from the chart) 10/15 16:32 14:07 Hydrocodone-Acetaminophen (7.5 mg-325 mg) 1 tabs PO once; RASS on ADMIN: Combtv4, cp Very Agttd3, Agttd2, Rstlss1, AlertClm0, Drwsy-1, Lt Sdtn-2, Mod Sdtn-3, Dp Sdtn-4, UnArsble-5 ordered. cp 19:13 18:53 Elisa Bello cp cp 21:56 18:53 cp cg 10/16 14:17 10/15 14:20 Context: Patient reports history of right ankle fracture, cp cp
[2021-10-15] MEDS ORDERED: INSULIN -REGULAR HUMAN 50 UNIT/0.5 ML ML ONE (19:39)
[2021-10-15] MEDS ORDERED: ONDANSETRON 4 MG/2 ML VIAL IV PRN (23:02)
[2021-10-15] MEDS ORDERED: ACETAMINOPHEN 500 MG TAB PO PRN (23:02)
--- NOTE | 2021-10-15 23:35 | P.HP ---
Certification for Inpatient Patient admitted to: Observation With expected LOS: <2 Midnights Patient will require the following post-hospital care: None Practitioner: I am a practitioner with admitting privileges, knowledge of patient current condition, hospital course, and medical plan of care. Services: Services provided to patient in accordance with Admission requirements found in Title 42 Section 412.3 of the Code of Federal Regulations Patient History Date of Service: 10/15/21 Primary Care Provider: Daniel Reason for admission: Anemia in ESRD History of Present Illness: Patient is a 76-year-old male with past medical history of ESRD on dialysis Wednesday, , Wednesday, type 2 diabetes insulin-dependent, CHF, hypertension who presented to the emergency department after being sent from dialysis stating that he was needing blood transfusion. Lab revealed hemoglobin 7.5, hematocrit 21.9, BNP 75,000, troponin 184. Patient recently seen here for distal fibular and medial malleolar fractures. He is only complaining of pain in his RLE at this time. Dr. Sanchez was notified and wishes for patient to be admitted for observation for 1 unit PRBC and dialysis tomorrow. Allergies codeine Allergy (Verified 10/15/21 23:40) Hallucinations gabapentin Adverse Reaction (Verified 10/15/21 23:40) Hallucinations Home medications list reviewed: Yes Home Medications: Amlodipine Besylate [Norvasc] 10 mg PO DAILY 05/17/18 Apixaban [Eliquis *] 2.5 mg PO DAILY 05/17/18 Atorvastatin Calcium [Lipitor] 40 mg PO BEDTIME 05/17/18 Bisacodyl [Gentle Laxative] 5 mg PO DAILY 05/17/18 Calcium Carbonate [Tums X-Str] 3 tab PO TID 05/17/18 Docusate [Colace Cap*] 250 mg PO DAILY 05/17/18 Insulin Glargine Human [Lantus*] 50 units SQ DAILY 05/17/18 Vit A/Vit C/Vit E/Zinc/Copper [Preservision Areds Softgel] 1 cap PO DAILY 05/17/18 carvediloL [Coreg*] 12.5 mg PO BID 05/17/18 glipiZIDE [Glipizide] 5 mg PO DAILY 05/17/18 Arformoterol Tartrate [Brovana] 15 mcg NEB BIDRESP #60 vial.neb 03/06/19 Benzonatate [Tessalon Perle*] 100 mg PO TID PRN #15 cap 08/03/18 Ipratropium Neb [Atrovent*] 2.5 ml IH TID PRN #90 amp 08/03/18 predniSONE [Prednisone*] 20 mg PO SEECOM #15 tab 08/03/18 - Past Medical/Surgical History Diabetic: Yes -: Hypertension -: Hyperlipidemia -: Diabetes type 2, insulin dependent -: End-stage renal disease, hemodialysis-Wednesday, and Saturdays -: Diastolic CHF -: COPD -: skin graft for elctrical persaud - BLE 1970s -: Right shoulder surgery -: bilateral leg surgery Psychosocial/ Personal History: Patient is . He has 3 children - Family History mother and father Notes: adopted - Social History Smoking Status: Former smoker Alcohol use: No CD- Drugs: No Caffeine use: Yes Review of Systems Musculoskeletal: Leg Pain Physical Examination - Vital Signs Blood Pressure: 145/79 Pulse: 64 Respirations: 14 - Physical Exam General: Alert, In no apparent distress, Oriented x3 HEENT: Atraumatic, PERRLA, EOMI, Sclerae nonicteric Neck: Supple, 2+ carotid pulse no bruit, No LAD, Without JVD or thyroid abnormality Respiratory: Clear to auscultation bilaterally, Normal air movement Cardiovascular: Regular rate/rhythm, Normal S1 S2 Gastrointestinal: Normal bowel sounds, No tenderness Musculoskeletal: Swelling, Tenderness, Cast in place Integumentary: No rashes Neurological: Normal speech, Normal strength at 5/5 x4 extr, Normal tone, Normal affect - Studies Laboratory Data (last 24 hrs) 10/15/21 17:03: PT 15.2 H, INR 1.37 10/15/21 17:03: WBC 4.6, Hgb 7.5 L, Hct 21.9 L, Plt Count 182 10/15/21 17:03: Sodium 133 L, Potassium 4.5, BUN 54 H, Creatinine 7.36 H*, Glucose 342 H, Magnesium 2.3 Assessment and Plan - Problems (Diagnosis) (1) Anemia in ESRD (end-stage renal disease) Current Visit: Yes Status: Acute (2) Type 2 diabetes mellitus Current Visit: Yes Status: Acute Qualifiers: 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 insulin use: with alf use Diabetes mellitus complication status: with kidney complications Diabetes mellitus complication detail: with chronic kidney disease Chronic kidney disease stage: on chronic dialysis Qualified Code(s): E11.22 - Type 2 diabetes mellitus with diabetic chronic kidney disease; N18.6 - End stage renal disease; Z79.4 - shelter (current) use of insulin; Z99.2 - Dependence on renal dialysis (3) CHF (congestive heart failure) Onset Date: 09/09/15 Current Visit: No Status: Chronic Qualifiers: Heart failure type: diastolic Heart failure chronicity: chronic Qualified Code(s): I50.32 - Chronic diastolic (congestive) heart failure (4) COPD (chronic obstructive pulmonary disease) Onset Date: 09/09/15 Current Visit: No Status: Chronic Qualifiers: COPD type: unspecified COPD Qualified Code(s): J44.9 - Chronic obstructive pulmonary disease, unspecified (5) Hypertension Onset Date: 05/18/18 Current Visit: No Status: Chronic Qualifiers: Hypertension type: primary hypertension Qualified Code(s): I10 - Essential (primary) hypertension (6) Fracture of distal end of fibula Current Visit: Yes Status: Acute Qualifiers: Encounter type: subsequent encounter Fracture type: closed Fracture morphology: unspecified fracture morphology Laterality: right Fracture healing: with routine healing Qualified Code(s): S82.831D - Other fracture of upper and lower end of right fibula, subsequent encounter for closed fracture with routine healing - Plan -patient to receive 1 unit PRBC with dialysis in the morning. monitor CBC -nephrology consulted -troponin was elevated at 183. cardiology consulted. will trend q6hx2. cpk and ckmb WNL. -splint in place LLE for recent fracture. PT ordered. morphine PRN pain. -moderate sliding scale insulin with diabetic diet -renal panel ordered -reconcile and cont home medications -SCDs for VTE ppx Discharge Plan: Home Plan to discharge in: 24 Hours - Advance Directives Does patient have a Living Will: No Does patient have a Durable POA for Healthcare: No - Code Status/Comfort Care Code Status Assessed: Yes (Full) Critical Care: No Time Spent Managing Pts Care (In Minutes): 70
[2021-10-16 00:27] VITALS: BMI 29.5
[2021-10-16] MEDS: MORPHINE 2 MG/ML SYR IV PRN ×4 (00:31→20:27)
[2021-10-16] MEDS: INSULIN -REGULAR HUMAN 50 UNIT/0.5 ML ML SQ SCH ×5 (00:32→20:45)
[2021-10-16 03:03] LABS: Absolute Lymphocytes (CBC) 0.9 K/uL (0.7-4.9); Hematocrit 21.2 % (39.6-49.0); Lymphocytes % 21.7 % (15.3-44.8); MPV 7.6 fL (7.6-11.3); RBC Red Blood Cell Count 1.86 M/uL (4.33-5.43)
[2021-10-16 03:33] LABS: Albumin 3.4 g/dL (3.4-5.0); Bilirubin Total 0.9 mg/dL (0.2-1.0); Magnesium 2.1 mg/dL (1.8-2.4); Phosphorus 4.4 mg/dL (2.5-4.9); Potassium 4.8 mmol/L (3.5-5.1); Protein, Total 6.6 g/dL (6.4-8.2); Thyroid Stimulating Hormone 1.09 uIU/mL (0.360-3.740)
[2021-10-16 05:05] LABS: Blood Morphology Comment NOTED (NOT SEEN); Macrocytosis 2+; Platelet Estimate ADEQ; White Blood Cell Scan OK (OK)
--- NOTE | 2021-10-16 07:37 | EKG ---
Test Date: 2021-10-15 Test Time: 18:33:33 Pilot Boat Operator: HERB MEASUREMENT RESULTS: Intervals: Rate: 60 GA: 170 QRSD: 174 QT: 520 QTc: 520 [place]: P: 69 GA: 170 QRS: -90 T: 46 INTERPRETIVE STATEMENTS: Normal sinus rhythm Right bundle branch block Left anterior fascicular block Bifascicular block Abnormal ECG Compared to ECG 09/16/2021 12:42:27 Left anterior fascicular block now present Bifascicular block now present Atrial flutter no longer present Electronically Signed On 10-16-21 07:37:00 CDT by Francisco Saucedo
[2021-10-16 08:23] VITALS: TEMP 98.9
[2021-10-16] MEDS ORDERED: EPOETIN ALFA 10,000 UNIT/ML VIAL IV SCH (10:30)
[2021-10-16] MEDS ORDERED: NA CHLORIDE 0.9% 250 ML ONE (10:50)
--- NOTE | 2021-10-16 14:39 | CON ---
Date of Consultation: 10/16/2021 Reason For Consultation: Elevated BUN and creatinine, end-stage renal disease. History Of Present Illness: This is a pleasant 76-year-old gentleman, well known to me from the dial ysis with significant past medical history of hyperlipidemia, hypertension, CAD complicated with karin estive heart failure, ejection fraction of 40%, diabetes complicated with neuropathy and nephropathy, end-stage renal disease on dialysis TTS at [facility]. The patient was in his r egular state of health last week, has mechanical fall, has a fracture of his right leg. The patient came to the ER. Primary workup showed the fracture. The patient supposed to see Orthopedic, but did not do so. The patient repeated blood test at the dialysis center showed elevation with drop in hem oglobin from 9 to 5.9. For that reason, we directed the patient to come to the emergency. In the em ergency, hemoglobin was 7.5. The patient denied any chest pain. The patient complaining from pain o n the right leg. Past Medical History: Includes; 1.Hypertension. 2.Hyperlipidemia. 3.CAD complicated with congestive heart failure. 4.Diabetes complicated with neuropathy and nephropathy. 5.End-stage renal disease, on hemodialysis at [facility], [facility] through left ar m AV fistula. Past Surgical History: Includes; 1.AV fistula creation. 2.Bilateral angiograms. Family History: Positive for hypertension. Social History: Denied smoking, denied drinking, denied drugs abuse. Review of Systems: Head and Neck: No red eye. No ear pain. GI: No nausea. No vomiting. : No polyuria. No dysuria. No hematuria. E Commerce Web Developer: Not applicable. Respiratory: Has shortness of breath. Cardiovascular: No chest pain. Endocrine: No polydipsia. Skin: No rash. Neuro: Has neuropathy. Musculoskeletal: Has pain on the right leg. Skin: No rash. Physical Examination: Vital Signs: When I saw the patient; blood pressure of 164/70, pulse of 61, afebrile, T-max 98.9. Chest: Crackles bilateral base. Heart: S1, S2. Systolic murmur. Abdomen: Soft, nontender. No organomegaly. Extremities: +1 edema. Cast with dressing on the right leg. Laboratory Data: WBC 4.3, H and H 7.3/21.2, platelet 177. Sodium 135, potassium 4.8, bicarb 27, BUN 59, creatinine 7.9, calcium 9.6, albumin 3.4, corrected calcium is 10. Assessment And Plan: 1.End-stage renal disease. We will arrange for the patient for dialysis today as the patient is ove r volume. We will challenge the patient. 2.Over volume. The patient is going to be challenged. 3.Hypertension. We will utilize blood pressure to establish better volume control. 4.Anemia of chronic kidney disease. Continue to resume LUANNE, possible loss with the fracture. We wi ll arrange for transfusion with dialysis today. 5.Hyponatremia, dilutional, secondary to overload, going to be corrected with dialysis. 6.Hypercalcemia. We will dialyze the patient on low calcium bath. 7.Leg fracture. We will consult Ortho. AL/BILLY Voice ID: [id number] Report ID: [id number]
[2021-10-16 15:52] LABS: Hematocrit 24.5 % (39.6-49.0)
[2021-10-16 20:33] VITALS: BP 168/67
[2021-10-16 23:28] VITALS: O2SAT 100
--- NOTE | 2021-10-19 15:42 | CON ---
Date of Consultation: 10/16/2021 The patient admitted on 10/15/2021 with elevated troponin. I saw the patient on 10/16/2021. History Of Present Illness: Mr. Mayers is a 76-year-old. Has a history of hemodialysis, congestive heart failure, ADD, diabetes, COPD, sleep apnea, dyslipidemia, and hypertension. Came in without an y chest pain. Came in with anemia, leg pain, was found to have elevated troponin. I was consulted. He came in mostly with blood transfusion. He denied any cardiac symptoms. Past Medical History: As stated above. Allergies: INCLUDE CODEINE AND NEURONTIN. Review of Systems: Negative. Social History: Negative. Family History: Negative. Medications: At home include aspirin, Lipitor, insulin, and Coreg. Physical Examination: Vital Signs: Stable. He was afebrile. HEENT: Negative. Neck: Supple without any bruit, lymphadenopathy, JVD, or thyromegaly. Chest: Clear to auscultation and percussion. Cardiac: Revealed a regular rhythm and rate with S4 gallops. No murmurs or rubs. Abdomen: Benign. Extremities: Revealed no clubbing, cyanosis, or edema. Diagnostic Data: He had an EKG showing bifascicular block. Chest x-ray was negative. Venous Dopple r was negative. Creatinine is 7.9. Troponin is 184. Venous Doppler is negative. Impression And Plan: Elevated troponin secondary to demand ischemia from dialysis and anemia. The p atient has no chest pain, no cardiac symptoms whatsoever. Has a negative venous Doppler. He has hem oglobin of 7.3, he needs to be transfused. His other medications include aspirin, Coreg, Lipitor, an d insulin need to be continued. He has chronic diastolic congestive heart failure, chronic hemodialy sis, chronic ADD, diabetes, chronic obstructive pulmonary disease, hypertension, dyslipidemia, sleep apnea, all of which is controlled. I will sign off his case. If he has any symptoms cardiac shrestha, I will get involve again in his care. JUANPABLO/BILLY Voice ID: [id number] Report ID: [id number]
== END 2021-10-16 22:32 ==
LOC: ER 13:16 → ERHOLD 19:34 → 2ND 22:38
PROVIDERS: ADMIT Hospitalist; ATTEND Hospitalist
PROC: 30233N1 Transfusion of Nonautologous Red Blood Cells into Peripheral Vein, Percutaneous Approach (ICD-10-PCS; principal; 2021-10-16)
DX: I13.2 Hypertensive heart and chronic kidney disease with heart failure and with stage 5 chronic kidney disease, or end stage renal disease (principal); E11.22 Type 2 diabetes mellitus with diabetic chronic kidney disease; N18.6 End stage renal disease; I50.32 Chronic diastolic (congestive) heart failure; D63.1 Anemia in chronic kidney disease; Z99.2 Dependence on renal dialysis; I24.8 Other forms of acute ischemic heart disease; I25.10 Atherosclerotic heart disease of native coronary artery without angina pectoris; E11.40 Type 2 diabetes mellitus with diabetic neuropathy, unspecified; E11.21 Type 2 diabetes mellitus with diabetic nephropathy; J44.9 Chronic obstructive pulmonary disease, unspecified; G47.30 Sleep apnea, unspecified; E78.5 Hyperlipidemia, unspecified; E87.1 Hypo-osmolality and hyponatremia; E83.52 Hypercalcemia; S82.831D Other fracture of upper and lower end of right fibula, subsequent encounter for closed fracture with routine healing; R01.1 Cardiac murmur, unspecified; F98.8 Other specified behavioral and emotional disorders with onset usually occurring in childhood and adolescence; Z20.822 Contact with and (suspected) exposure to COVID-19; Z79.82 Long term (current) use of aspirin; Z79.4 Long term (current) use of insulin; Z79.52 Long term (current) use of systemic steroids; Z79.899 Other long term (current) drug therapy; Z88.5 Allergy status to narcotic agent; Z88.8 Allergy status to other drugs, medicaments and biological substances; Z87.891 Personal history of nicotine dependence; Z82.49 Family history of ischemic heart disease and other diseases of the circulatory system
CPT/HCPCS: 36415; 71045; 80048; 80053; 80061; 82550; 82553; 82947; 83735; 83880; 84100; 84439; 84443; 84484; 85014; 85018; 85025; 85610; 86850; 86900; 86901; 90935; 93005; 93971; 99285; G0378; J1644; J1815; J2270; J2405; J3010; J7050; P9016; U0003

== ENCOUNTER 2022-01-07 17:14 | Inpatient (IN) | payer OTHER, BC ==
--- OUTSIDE RECORDS SUMMARY | 2022-01-07 17:17 | XMS REPORT | Continuity of Care Document ---
:1945 Author Organization [facility] t Address [address] [place] [address] Care Team Providers Name Role Phone Naveed Fortune Attending Clinician Unavailable [id number] Attending Clinician Unavailable CAREY LONG Attending Clinician Unavailable CAMELIA MANCILLA Attending Clinician Unavailable RONNIE WHITNEY Attending Clinician Unavailable MONSE VELAZQUEZ Attending Clinician Unavailable CHILANGO ARMSTRONG NATASHA Attending Clinician Unavailable [id number] Admitting Clinician Unavailable CAMELIA MANCILLA Admitting Clinician Unavailable MONSE VELAZQUEZ Admitting Clinician Unavailable CHILANGO ARMSTRONG NATASHA Admitting Clinician Unavailable Payers Payer Name Policy Type Policy Number Effective Date Expiration Date S kristin MEDICARE PART A [id number] 2011 AND B 00:00:00 [facility] [id number] BCTX BCTI [id number] Problems This patient has no known problems. Allergies, Adverse Reactions, Alerts This patient has no known allergies or adverse reactions. Medications Ordered Filled Start Stop Current Ordering Indication Dosage Frequency Signature Comments Components Source Medication Medication Date Date Medication? Clinician (SIG) Name Name Advair HFA Advair HFA 2019-0 Yes Naveed 2 puffs Common 1-15 [facility] 00:00: - [facility] 00 [facility] BD BD 2018-05 Yes Naveed 1 needle Common Ultra-Fine Ultra-Fine 0-09 Fortune with Sp jerome Christina Pen Christina Pen 00:00: [facility] Angelica Angelica 00 [facility] Tums E-X Tums E-X Yes Naveed 1 tablet C ommon 750 750 Fortune [facility] Basaglar Allyssaaglar Yes Naveed 52 Units C ommon KwikPen KwikPen Fortune [facility] PreserVisio PreserVisio Yes Naveed as Common n AREDS n AREDS Fortune directed [facility] Citalopram Citalopram Yes Naveed 1 tablet Common Hydrobromid Hydrobromid [facility] Stool Stool Yes Naveed not Common Softener Softener Fortune defined [facility] rit [facility] Gentle Gentle Yes Naveed 1 tablet Commo n Laxative Laxative Fortune as needed S pirit [facility] Atorvasta Atorvastati Yes Naveed 1 tablet Common n Calcium n Calcium Fortune [facility] Contour Contour Yes Naveed USE 3 Common Test Test Fortune TIMES [facility] Eliquis 2.5 Eliquis 2.5 Yes Naveed 1 tablet Common mg mg Fortune [facility] Multivitami Multivitami Yes Naveed as Common n Adult n Adult Fortune directed [facility] Carvedilol Carvedilol Yes Naveed TAKE 1 Common Fortune TABLET BY Spirit MOUTH - [facility] TWICE A St DAY ON NON [facility] DIALYSIS Medical DAYS Center Atorvastati Atorvastati Yes Naveed TAKE 1 Common n Calcium n Calcium Fortune TABLET [facility] MOUTH - [facility] EVERY DAY [facility] GlipiZIDE GlipiZIDE Yes Naveed 1 tablet Common Fortune [facility] Basaglar Steviear Yes Naveed 50 Units C ommon KwikPen KwikPen Fortune [facility] Procedures Procedure Date / Time Performed Performing Clinician [facility] azeb [id number] 2021-10-18 00:00:00 ENCPL Encounters Start End Encounter Admission Attending Care Care Encounter Source Date/Time Date/Time Type Type Clinicians Facility Department ID 2022-01-01 Outpatient Fortune, STLMLC STLMLC [id number] Common 10:24:01 Naveed [facility] 2021-12-29 Outpatient Fortune, STLMLC STLMLC [id number] Common 08:34:00 Naveed [facility] 2021-12-16 Outpatient [facility] [id number] 14:42:21 [id number] [facility] 2021-11-19 Outpatient Fortune, STLMLC STLMLC [id number] Common 08:42:01 Naveed [facility] 2021-11-03 Outpatient Fortune, STLMLC STLMLC [id number] Common 10:33:01 Naveed [facility] 2021-10-15 Outpatient 3 [id number] ENCPL REF [id number] ENCPL 08:19:25 052021-10-14 Outpatient 3 [id number] ENCPL REF [id number] ENCPL 11:59:03 17 2021-06-25 Outpatient Fortune, STLMLC STLMLC [id number] Common 14:22:06 Naveed [id number] [facility] 2021-06-25 Outpatient Fortune, STLMLC STLMLC [id number] Common 14:13:51 Naveed [id number] [facility] 2021-06-25 Outpatient Fortune, STLMLC STLMLC [id number] Common 13:38:12 Naveed [id number] [facility] 2021-06-25 Outpatient Fortune, STLMLC STLMLC [id number] Common 12:43:29 Naveed [id number] [facility] 2021-06-25 Outpatient Fortune, STLMLC STLMLC [id number] Common 12:42:27 Naveed [id number] [facility] 2021-06-25 Outpatient Fortune, STLMLC STLMLC [id number] Common 12:31:12 Naveed [id number] [facility] 2021-06-25 Outpatient Fortune, STLMLC STLMLC [id number] Common 12:31:03 Naveed [id number] [facility] 2021-06-25 Outpatient Fortune, STLMLC STLMLC [id number] Common 12:30:21 Naveed [id number] [facility] 2021-06-25 Outpatient Fortune, STLMLC STLMLC [id number] Common 11:00:43 Naveed [id number] [facility] 2022-01-02 2022-01-02 Emergency E LONG, BL MHBL [id number] MHBL 12:12:00 16:33:00 CAREY 2022-01-01 2022-01-01 ambulatory STLMLC STLMLC [id number] Common 00:00:00 00:00:00 [facility] 2021-12-31 2021-12-31 ambulatory STLMLC STLMLC [id number] Common 00:00:00 00:00:00 [facility] 2021-12-14 2021-12-16 Inpatient E SAAndrésJA, BL MED [id number] MHBL 18:26:00 22:14:00 CAMELIA 2021-12-03 2021-12-04 Emergency E FADTIGREOLE, BL BL [id number] MHBL 18:19:00 09:53:00 RONNIE 2021-11-25 2021-11-26 Outpatient E AJKRISTAL, BL MED [id number] MHBL 10:37:00 19:12:00 MONSE 2021-11-24 2021-11-24 ambulatory STLMLC STLMLC [id number] Common 00:00:00 00:00:00 [facility] 2021-10-16 2021-11-03 Inpatient 3 NATHANIEL, ENCPL GILDA [id number] ENCPL 23:26:00 21:40:00 CHILANGO 0519 2021-11-03 2021-11-03 ambulatory STLMLC STLMLC [id number] Common 00:00:00 00:00:00 [facility] 2021-10-17 2021-10-17 ambulatory STLMLC STLMLC [id number] Common 00:00:00 00:00:00 [facility] 2021-08-12 2021-08-12 ambulatory STLMLC STLMLC [id number] Common 00:00:00 00:00:00 [facility] 2021-07-28 2021-07-28 ambulatory STLMLC STLMLC [id number] Common 00:00:00 00:00:00 [facility] 2021-07-28 2021-07-28 ambulatory STLMLC STLMLC [id number] Common 00:00:00 00:00:00 [facility] 2021-06-12 2021-06-12 ambulatory STLMLC STLMLC [id number] Common 00:00:00 00:00:00 [facility] 2021-05-21 2021-05-21 ambulatory STLMLC STLMLC [id number] Common 00:00:00 00:00:00 [facility] 2021-04-28 2021-04-28 ambulatory STLMLC STLMLC [id number] Common 00:00:00 00:00:00 [facility] 2021-03-26 2021-03-26 Outpatient STLMLC STLMLC [id number] Common 00:00:00 00:00:00 [facility] 2021-03-12 2021-03-12 Outpatient STLMLC STLMLC [id number] Common 00:00:00 00:00:00 [facility] 2021-02-10 2021-02-10 Outpatient STLMLC STLMLC [id number] Common 00:00:00 00:00:00 [facility] 2021-01-31 2021-01-31 Outpatient STLMLC STLMLC [id number] Common 00:00:00 00:00:00 [facility] 2021-01-13 2021-01-13 Outpatient STLMLC STLMLC [id number] Common 00:00:00 00:00:00 [facility] 2021-01-08 2021-01-08 Outpatient STLMLC STLMLC [id number] Common 00:00:00 00:00:00 [facility] 2020-12-31 2020-12-31 Outpatient STLMLC STLMLC [id number] Common 00:00:00 00:00:00 [facility] 2020-12-11 2020-12-11 Outpatient STLMLC STLMLC [id number] Common 00:00:00 00:00:00 [facility] 2020-08-19 2020-08-19 Outpatient STLMLC STLMLC [id number] Common 00:00:00 00:00:00 [facility] 2020-07-19 2020-07-19 Outpatient STLMLC STLMLC [id number] Common 00:00:00 00:00:00 [facility] 2020-07-15 2020-07-15 Outpatient STLMLC STLMLC [id number] Common 00:00:00 00:00:00 [facility] 2020-06-14 2020-06-14 Outpatient STLMLC STLMLC [id number] Common 00:00:00 00:00:00 [facility] 2020-06-05 2020-06-05 Outpatient STLMLC STLMLC [id number] Common 00:00:00 00:00:00 [facility] 2020-04-23 2020-04-23 Outpatient STLMLC STLMLC [id number] Common 00:00:00 00:00:00 [facility] 2020-04-22 2020-04-22 Outpatient STLMLC STLMLC [id number] Common 00:00:00 00:00:00 [facility] 2020-04-17 2020-04-17 Outpatient STLMLC STLMLC [id number] Common 00:00:00 00:00:00 [facility] 2020-01-15 2020-01-15 [facility] [id number] Common 10:45:00 10:45:[address] [facility] 2019-10-16 2019-10-16 [facility] [id number] Common 13:00:00 13:00:[address] [facility] 2019-07-17 2019-07-17 [facility] [id number] Common 13:45:00 13:45:[address] [facility] 2019-06-14 2019-06-14 [facility] [id number] Common 11:45:00 11:45:[address] [facility] 2019-06-07 2019-06-07 [facility] [id number] Common 11:57:00 11:57:[address] [facility] 2019-05-17 2019-05-17 [facility] [id number] Common 11:30:00 11:30:[address] [facility] 2019-04-24 2019-04-24 [facility] [id number] Common 14:52:00 14:52:[address] [facility] 2019-04-19 2019-04-19 [facility] [id number] Common 14:45:00 14:45:[address] [facility] 2019-04-06 2019-04-06 [facility] [id number] Common 08:35:00 08:35:[address] [facility] 2019-04-04 2019-04-04 [facility] [id number] Common 08:34:00 08:34:[address] [facility] 2019-03-08 2019-03-08 [facility] [id number] Common 10:57:00 10:57:[address] [facility] 2019-02-20 2019-02-20 [facility] [id number] Common 14:00:00 14:00:[address] [facility] Results This patient has no known results.
[2022-01-07] MEDS ORDERED: METHYLPREDNISOLONE 125 MG INJ ONE (17:40)
[2022-01-07] MEDS ORDERED: CEFTRIAXONE 1000 MG/VIAL ONE (17:40)
[2022-01-07] MEDS ORDERED: NA CHLORIDE 0.9% 250 ML ONE ×2 (17:41→20:57)
[2022-01-07] MEDS ORDERED: NA CHLORIDE 0.9% 50 ML ONE (17:41)
[2022-01-07] MEDS ORDERED: ALBUTEROL 2.5 MG/3 ML NEB SOL ONE (17:41)
[2022-01-07] MEDS ORDERED: IPRATROPIUM BROM 0.5MG/2.5ML ONE (17:41)
[2022-01-07] MEDS ORDERED: AZITHROMYCIN 500 MG INJ IVPB ONE (17:41)
--- NOTE | 2022-01-07 18:09 | RAD REPORT ---
EXAM DESCRIPTION: RAD - Chest Single View - 01/07/2022 5:57 pm CLINICAL HISTORY: COUGH, acute onset of shortness of breath during dialysis, history of CHF, diabete s, COPD and hypertension COMPARISON: Portable 10/15/2021 TECHNIQUE: AP portable chest image was obtained 01/07/2022 5:57 pm . FINDINGS: Lung volumes are low accentuating the baseline interstitial pattern. There is extensive in terstitial and alveolar opacification in the mid and upper right lung field. Left base is mostly obsc ured by shallow inspiration, body habitus and portable affects. Upper left lung field is clear of a f ocal process. Cardiac silhouette is enlarged, similar to prior imaging. No measurable pleural effusion and no pneu mothorax. No acute bony abnormality seen. No acute aortic findings suspected. IMPRESSION: Prominent alveolar opacification in the mid and upper right lung field. All chest findin gs are accentuated by shallow inspiration, body habitus affects and under penetrated portable techniq ue. Right lung field pneumonia would be the most likely etiology. Given the patient was at dialysis, an a symmetric pulmonary edema or volume overload would be possible.
[2022-01-07 18:17] LABS: Absolute Lymphocytes (CBC) 0.6 K/uL (0.7-4.9); Hematocrit 18.4 % (39.6-49.0); Lymphocytes % 6.2 % (15.3-44.8); MCV 107.3 fL (80-100); MPV 7.9 fL (7.6-11.3); RBC Red Blood Cell Count 1.71 M/uL (4.33-5.43)
[2022-01-07 18:18] LABS: Protime INR 1.59
--- NOTE | 2022-01-07 18:39 | ER ---
Nurse's Notes [facility] Name: Guzman Mayers Age: 76 yrs Sex: Male : 1945 Arrival Date: 01/07/2022 Time: 17:16 Bed 14 Private MD: Diagnosis: Pneumonia due to other specified bacteria;COPD/ Chronic obstructive pulmonary disease, unspecified;Anemia, unspecified Presentation: 01/07 17:00 Chief complaint: EMS states: Called out for a patient with SOB 80's on room air at [facility]-per EMS onset of symptoms was 1 hour prior to EMS arriving-patient placed on 15 liters NRB-breath sounds diminished in lower lobes, only 1 liter of fluid removed at dialysis, reports of intermittent fever. Coronavirus screen: Vaccine status: Patient reports receiving the 2nd dose of the covid vaccine. Ebola Screen: Patient negative for fever greater than or equal to 101.5 degrees Fahrenheit, and additional compatible Ebola Virus Disease symptoms Patient denies exposure to infectious person. Patient denies travel to an Ebola-affected area in the 21 days before illness onset. Initial Sepsis Screen: Does the patient meet any 2 criteria? RR > 20 per min. Yes Does the patient have a suspected source of infection? No. Patient's initial sepsis screen is negative. Risk Assessment: Do you want to hurt yourself or someone else? Patient reports no desire to harm self or others. 17:00 Method Of Arrival: EMS: [facility] 9 17:00 Acuity: CHICHO 3 j9 17:25 Onset of symptoms is unknown. j9 Triage Assessment: 17:00 General: Appears uncomfortable, Behavior is calm, cooperative. Pain: Denies pain. jg9 Respiratory: Reports shortness of breath at rest on exertion patient noticeably speaking in short choppy sentences labored breathing since 2 days Onset: The symptoms/episode began/occurred gradually, the patient has moderate shortness of breath. 17:24 Respiratory: Breath sounds are clear in right upper lobe, right middle lobe and right jg9 lower lobe Breath sounds are diminished in left upper lobe and left lower lobe. Historical: - Allergies: 17:20 Codeine; jg9 17:20 GABAPENTIN; jg9 - Home Meds: 17:20 aspirin 81 mg Oral chew 1 tab once daily [Active]; atorvastatin 40 mg Oral tab 1 tab jg9 once daily [Active]; bumetanide 2 mg Oral tab 2 tab once daily [Active]; carvedilol 25 mg Oral tab 1 tab 2 times per day [Active]; cefuroxime axetil 250 mg Oral tab 1 tab 2 times per day [Active]; Centrum Silver 400-250 mcg Oral chew daily [Active]; ferrous sulfate 325 mg (65 mg iron) Oral TbEC three times a day [Active]; gabapentin Oral [Active]; glipizide 5 mg Oral tab 1 tab once daily [Active]; hydralazine 100 mg Oral tab 1 tab 2 times per day [Active]; isosorbide mononitrate 30 mg Oral Tb24 1 tab once daily [Active]; Lantus 100 unit/mL Sub-Q soln 80 unit daily [Active]; metolazone 2.5 mg Oral tab 1 tab once daily [Active]; montelukast 10 mg Oral tab 1 tab once daily [Active]; PreserVision AREDS 14,320-226-200 lvgh-az-mpdg Oral cap [Active]; spironolactone 25 mg Oral tab 1 tab once daily [Active]; Valtrex Oral [Active]; - PMHx: 17:20 ADD/ADHD; CHF; CKD; COPD; Diabetes - IDDM; Dialysis; dialysis tues, thurs, sat, uses o2 jg9 when sleeping.; High Cholesterol; HTN; Hypertension; - Immunization history:: Adult Immunizations up to date. - Social history:: Smoking status: Patient denies any tobacco usage or history of. Screenin:23 Abuse screen: Denies threats or abuse. Denies injuries from another. Nutritional jg9 screening: No deficits noted. Tuberculosis screening: No symptoms or risk factors identified. Fall Risk Fall in past 12 months (25 points). Assessment: 17:25 Cardiovascular: Rhythm is regular. Respiratory: Airway is patent Respiratory effort is jg9 even, labored. 18:16 Reassessment: No changes from previously documented assessment. Patient and/or family jg9 updated on plan of care and expected duration. Pain level reassessed. Patient is alert, oriented x 3, equal unlabored respirations, skin warm/dry/pink. 20:58 Pain: Complains of pain in right foot. ja4 Vital Signs: 17:00 BP 110 / 75; Pulse 81; Resp 22 S; Temp 98.3(TE); Pulse Ox 98% on 4 lpm NC; Weight 95.25 jg9 kg; Height 5 ft. 10 in. (177.80 cm); Pain 0/10; 17:45 BP 115 / 80; Pulse 81; Resp 20 S; Pulse Ox 99% on 4 lpm NC; jg9 19:00 BP 111 / 79; Pulse 78; Resp 18 S; Pulse Ox 94% on 4 lpm NC; jg9 21:26 BP 107 / 56; Pulse 78; Resp 25; Temp 98.8; Pulse Ox 95% on 2 lpm NC; ja4 01/08 00:36 BP 114 / 69; Pulse 81; Resp 20; Pulse Ox 99% 3 lpm ; ja4 01/07 17:00 Body Mass Index 30.13 (95.25 kg, 177.80 cm) j9 ED Course: 01/07 17:16 Patient arrived in ED. jg9 17:16 Hilda Fortune MD is Attending Physician. sp3 17:16 Magda Reyes, GILSON is Primary Nurse. jg9 17:20 Triage completed. jg9 17:25 Arm band placed on right wrist. jg9 17:25 Patient has correct armband on for positive identification. Bed in low position. Call jg9 light in reach. Side rails up X 1. 17:50 Maintain EMS IV. Dressing intact. Good blood return noted. Site clean \T\ dry. Gauge \T\ jg 9 site: 20 r fa. 17:58 XRAY Chest (1 view) In Process Unspecified. EDMS 18:15 SARS RAPID Sent. jg9 18:38 Wendi Ruiz MD is Hospitalizing Provider. sp3 20:57 Consent for blood and/or blood product transfusion explained by staff, signed by ja4 patient. 20:57 Response to oxygen therapy: symptoms improved. [facility] 21:28 Type And Screen Sent. 4 01/08 07:00 No provider procedures requiring assistance completed. Patient admitted, IV remains in jl7 place. intact, No redness/swelling at site. 07:53 Primary Nurse role handed off by Magda Reyes, GILSON jl7 07:53 Letitia Camacho RN is Primary Nurse. jl7 Administered Medications: 01/07 18:10 Drug: DuoNeb (albuterol 2.5 mg, ipratropium 0.5 mg) (3:1) (2.5 mg - 0.5 mg) 3 ml Route: jg9 Nebulizer; 18:35 Follow up: Response: No adverse reaction; No change in condition jg9 18:10 Drug: SOLU-Medrol (methylPrednisoLONE) 125 mg Route: IVP; Site: right forearm; jg9 18:41 Follow up: Response: No adverse reaction jg9 18:37 Drug: Rocephin (cefTRIAXone) 1 grams Route: IV; Rate: calculated rate; Site: right jg9 forearm; 19:21 Follow up: IV Status: Completed infusion; IV Intake: 50ml jg9 19:08 Drug: Zithromax (azithromycin) 500 mg Route: IVPB; Infused Over: 1 hrs; Site: right jg9 forearm; Medication: 01/08 12:52 VIS not applicable for this client. jl7 Intake: 01/07 19:21 IV: 50ml; Total: 50ml. jg9 Outcome: 18:38 Decision to Hospitalize by Provider. sp3 01/08 01:51 Admitted to ER Hold. Please see [facility] for further documentation. ja4 07:00 Admitted to ER Hold. Please see [facility] for further documentation. jl7 07:00 Condition: stable 07:00 Discharge instructions given to patient, Instructed on the need for admit, Demonstrated understanding of instructions. 12:52 Patient left the ED. jl7 Signatures: Dispatcher [employer] EDMS Letitia Camacho RN RN jl7 Hilda Fortune MD MD sp3 Magda Reyes RN RN jg9 Mauro Bridges RN RN ja4 Corrections: (The following items were deleted from the chart) 01/07 19:23 09:00 BP 111 / 79; Pulse 78bpm; Resp 18bpm; Spontaneous; Pulse Ox 94% 4 lpm Nasal jg9 Cannula; jg9
--- NOTE | 2022-01-07 18:39 | EDPHYS ---
Physician Documentation [facility] Name: Guzman Mayers Age: 76 yrs Sex: Male : 1945 Arrival Date: 01/07/2022 Time: 17:16 Bed 14 Private MD: ED Physician Hilda Fortune HPI: 01/07 17:45 This 76 yrs old Male presents to ER via EMS with complaints of Breathing sp3 Difficulty. 17:45 76-year-old male with a history of CHF, end-stage renal disease on hemodialysis, COPD, sp3 diabetes presents to the ED approximately 1 hour after he started his dialysis session today for chief complaint hypoxia and shortness of breath with active cough with mild hemoptysis. Patient has had multiple episodes of this in the past for COPD exacerbation. Room air pulse oxygenation at dialysis was in the low 80s despite being on oxygen. The activated EMS and he now presents here. Apparently only 1 L of fluid was taken off during his dialysis session. He currently denies any chest pain, abdominal pain, nausea, vomiting, diarrhea, fever, known sick contacts, travel history, or any other ROS at this time. His only complaint is continued difficulty breathing and occasional scattered subjective wheeze.. Historical: - Allergies: 17:20 Codeine; jg9 17:20 GABAPENTIN; jg9 - Home Meds: 17:20 aspirin 81 mg Oral chew 1 tab once daily [Active]; atorvastatin 40 mg Oral tab 1 tab jg9 once daily [Active]; bumetanide 2 mg Oral tab 2 tab once daily [Active]; carvedilol 25 mg Oral tab 1 tab 2 times per day [Active]; cefuroxime axetil 250 mg Oral tab 1 tab 2 times per day [Active]; Centrum Silver 400-250 mcg Oral chew daily [Active]; ferrous sulfate 325 mg (65 mg iron) Oral TbEC three times a day [Active]; gabapentin Oral [Active]; glipizide 5 mg Oral tab 1 tab once daily [Active]; hydralazine 100 mg Oral tab 1 tab 2 times per day [Active]; isosorbide mononitrate 30 mg Oral Tb24 1 tab once daily [Active]; Lantus 100 unit/mL Sub-Q soln 80 unit daily [Active]; metolazone 2.5 mg Oral tab 1 tab once daily [Active]; montelukast 10 mg Oral tab 1 tab once daily [Active]; PreserVision AREDS 14,320-226-200 [id number] Oral cap [Active]; spironolactone 25 mg Oral tab 1 tab once daily [Active]; Valtrex Oral [Active]; - PMHx: 17:20 ADD/ADHD; CHF; CKD; COPD; Diabetes - IDDM; Dialysis; dialysis tues, thurs, sat, uses o2 jg9 when sleeping.; High Cholesterol; HTN; Hypertension; - Immunization history:: Adult Immunizations up to date. - Social history:: Smoking status: Patient denies any tobacco usage or history of. ROS: 17:46 Constitutional: Negative for fever, chills, and weight loss, Eyes: Negative for injury, sp3 pain, redness, and discharge, ENT: Negative for injury, pain, and discharge, Neck: Negative for injury, pain, and swelling, Cardiovascular: Negative for chest pain, palpitations, and edema, Abdomen/GI: Negative for abdominal pain, nausea, vomiting, diarrhea, and constipation, Back: Negative for injury and pain, MS/Extremity: Negative for injury and deformity, Skin: Negative for injury, rash, and discoloration, Neuro: Negative for headache, weakness, numbness, tingling, and seizure, Psych: Negative for depression, anxiety, suicide ideation, homicidal ideation, and hallucinations, Allergy/Immunology: Negative for hives, rash, and allergies. 17:46 All other systems are negative. Exam: 17:46 Constitutional: This is a well developed, well nourished patient who is awake, alert, sp3 and in no acute distress. Head/Face: Normocephalic, atraumatic. Eyes: Pupils equal round and reactive to light, extra-ocular motions intact. Lids and lashes normal. Conjunctiva and sclera are non-icteric and not injected. Cornea within normal limits. Periorbital areas with no swelling, redness, or edema. ENT: Nares patent. No nasal discharge, no septal abnormalities noted. External auditory canals are clear. Oropharynx with no redness, swelling, or masses, exudates, or evidence of obstruction, uvula midline. Mucous membranes moist. Neck: Trachea midline, no thyromegaly or masses palpated, and no cervical lymphadenopathy. Supple, full range of motion without nuchal rigidity, or vertebral point tenderness. No Meningismus. Chest/axilla: Normal chest wall appearance and motion. Nontender with no deformity. No lesions are appreciated. Cardiovascular: Regular rate and rhythm with a normal S1 and S2. No gallops, murmurs, or rubs. Normal PMI, no JVD. No pulse deficits. Abdomen/GI: Soft, non-tender, with normal bowel sounds. No distension or tympany. No guarding or rebound. No evidence of tenderness throughout. Back: No spinal tenderness. No costovertebral tenderness. Full range of motion. Skin: Warm, dry with normal turgor. Normal color with no rashes, no lesions, and no evidence of cellulitis. Neuro: Awake and alert, GCS 15, oriented to person, place, time, and situation. Cranial nerves II-XII grossly intact. Motor strength 5/5 in all extremities. Sensory grossly intact. Cerebellar exam normal. Normal gait. Psych: Awake, alert, with orientation to person, place and time. Behavior, mood, and affect are within normal limits. 17:46 Respiratory: mild respiratory distress is noted, Scattered wheeze present bilaterally. No significant respiratory distress. Patient is on 6 L nasal cannula and oxygenation and is in the mid 90s.. Vital Signs: 17:00 BP 110 / 75; Pulse 81; Resp 22 S; Temp 98.3(TE); Pulse Ox 98% on 4 lpm NC; Weight 95.25 jg9 kg; Height 5 ft. 10 in. (177.80 cm); Pain 0/10; 17:45 BP 115 / 80; Pulse 81; Resp 20 S; Pulse Ox 99% on 4 lpm NC; jg9 19:00 BP 111 / 79; Pulse 78; Resp 18 S; Pulse Ox 94% on 4 lpm NC; jg9 21:26 BP 107 / 56; Pulse 78; Resp 25; Temp 98.8; Pulse Ox 95% on 2 lpm NC; ja4 01/08 00:36 BP 114 / 69; Pulse 81; Resp 20; Pulse Ox 99% 3 lpm ; ja4 01/07 17:00 Body Mass Index 30.13 (95.25 kg, 177.80 cm) [facility] [place]: 01/07 17:16 Patient medically screened. sp3 17:47 Data reviewed: vital signs, nurses notes. ED course: General support and work patient sp3 up with chest x-ray, labs, steroids, nebulizer, antibiotics. Differential diagnosis includes COPD exacerbation, pneumonia, ACS, CHF. Patient likely to be admitted but final decision on disposition TBD until results reviewed and patient course reevaluated.. 18:37 ED course: Support right-sided pneumonia that is new. Community-acquired pneumonia sp3 antibiotics already given and will defer to primary inpatient team to change that if warranted. Patient is also anemic at 6.8 and will give 1 unit PRBC given his humeral dialysis status. This plan was communicated to the inpatient team who will be seeing him in the ER.. 01/07 17:18 Order name: Basic Metabolic Panel; Complete Time: 22:45 3 01/07 17:18 Order name: CBC with Diff; Complete Time: 19:06 3 01/07 17:18 Order name: LFT's; Complete Time: 22:45 3 01/07 17:18 Order name: NT PRO-BNP; Complete Time: 22:45 3 01/07 17:18 Order name: PT-INR; Complete Time: 18:39 3 01/07 17:18 Order name: Troponin HS; Complete Time: 22:45 3 01/07 17:24 Order name: Flu; Complete Time: 22:45 3 01/07 17:25 Order name: Blood Culture Adult (2) 3 01/07 17:30 Order name: Influenza Screen (A ; Complete Time: 18:39 EDWV 01/07 18:09 Order name: SARS RAPID jg9 01/07 18:37 Order name: Type And Screen 3 01/07 17:18 Order name: XRAY Chest (1 view); Complete Time: 18:17 3 01/07 18:41 Order name: Type and Screen [facility] 01/07 18:48 Order name: CBC Smear Scan; Complete Time: 19:06 EDMS 01/08 04:22 Order name: Comprehensive Metabolic Panel EDWV 01/08 04:22 Order name: Phosphorus EDMS 01/08 04:22 Order name: Creatine Phosphokinase EDWV 01/08 04:22 Order name: CKMB Creatine Kinase MB EDMS 01/08 04:22 Order name: Troponin High Sensitivity EDWV 01/08 04:22 Order name: Lipid Profile EDWV 01/08 04:22 Order name: Magnesium EDMS 01/08 04:24 Order name: CBC with Automated Diff EDMS 01/08 05:00 Order name: Manual Differential EDMS 01/08 08:22 Order name: Glucose, Ancillary Testing EDMS 01/07 17:18 Order name: EKG; Complete Time: 17:19 sp3 01/07 17:18 Order name: Cardiac monitoring; Complete Time: 17:27 sp3 01/07 17:18 Order name: EKG - Nurse/Tech; Complete Time: 18:09 sp3 01/07 17:18 Order name: IV Saline Lock; Complete Time: 18:09 sp3 01/07 17:18 Order name: Labs collected and sent; Complete Time: 18:09 sp3 01/07 17:18 Order name: O2 Per Protocol; Complete Time: 17:27 sp3 01/07 17:18 Order name: O2 Sat Monitoring; Complete Time: 17:27 sp3 Administered Medications: 18:10 Drug: DuoNeb (albuterol 2.5 mg, ipratropium 0.5 mg) (3:1) (2.5 mg - 0.5 mg) 3 ml Route: 9 Nebulizer; 18:35 Follow up: Response: No adverse reaction; No change in condition 9 18:10 Drug: SOLU-Medrol (methylPrednisoLONE) 125 mg Route: IVP; Site: right forearm; j9 18:41 Follow up: Response: No adverse reaction 9 18:37 Drug: Rocephin (cefTRIAXone) 1 grams Route: IV; Rate: calculated rate; Site: right jg9 forearm; 19:21 Follow up: IV Status: Completed infusion; IV Intake: 50ml 9 19:08 Drug: Zithromax (azithromycin) 500 mg Route: IVPB; Infused Over: 1 hrs; Site: right 9 forearm; Disposition Summary: 01/07/22 18:38 Hospitalization Ordered Hospitalization Status: Inpatient Admission sp3 Provider: Wendi Ruiz sp3 Condition: Fair sp3 Problem: an acute exacerbation sp3 Symptoms: have worsened sp3 Bed/Room Type: Standard sp3 Location: Telemetry/MedSurg (Inpatient)(01/08/22 12:11) dw Room Assignment: [facility](08/11/22 12:12) dw Diagnosis - Pneumonia due to other specified bacteria sp3 - COPD/ Chronic obstructive pulmonary disease, unspecified sp3 - Anemia, unspecified sp3 Forms: - Medication Reconciliation Form sp3 - SBAR form sp3 Signatures: Dispatcher [employer] EDLynn Quintanilla Diana RN RN dw Raquel Day RN RN eb1 Hilda Fortune MD MD sp3 Magda Reyes RN RN jg9 Elisa Bello PA PA sb3 Corrections: (The following items were deleted from the chart) 18:44 18:40 Labs - recollect needed ordered. bd jg9 20:12 18:38 Telemetry/MedSurg (Inpatient) sp3 eb1 20:12 18:38 sp3 eb1 01/08 12:11 08 20:12 [facility] ER HOLD eb1 dw 01/08 12:11 01/07 20:12 ERHOLD- eb1 01/08 12:12 12:11 222 [facility]
[2022-01-07 18:47] LABS: Platelet Estimate ADEQ; White Blood Cell Scan OK (OK)
[2022-01-07 18:48] LABS: Anisocytosis 3+; Blood Morphology Comment NOTED (NOT SEEN); Hypochromasia 1+; Macrocytosis 1+
[2022-01-07 19:07] LABS: ALT/SGPT 45 U/L (12-78); AST/SGOT 62 U/L (15-37); Albumin 2.7 g/dL (3.4-5.0); Alkaline Phosphatase 300 U/L (45-117); BUN Blood Urea Nitrogen 68 mg/dL (7-18); Bicarbonate 28 mmol/L (21-32); Bilirubin Direct 1.3 mg/dL (0-0.2); Bilirubin Total 1.8 mg/dL (0.2-1.0); Glomerular Filtration Rate 7 ml/min (=/>90); Glucose Level 116 mg/dL (74-106); Potassium 4.8 mmol/L (3.5-5.1); Protein, Total 6.5 g/dL (6.4-8.2); Sodium Level 132 mmol/L (136-145)
[2022-01-07 19:08] LABS: NT PRO-BNP > 175000 pg/mL (<450)
[2022-01-07 19:11] LABS: Troponin High Sensitivity 339.2 pg/mL (<58.9)
[2022-01-07 19:17] LABS: SARS-CoV-2 Antigen Rapid Res Negative (Negative)
--- NOTE | 2022-01-07 20:28 | P.HP ---
Certification for Inpatient Patient admitted to: Inpatient With expected LOS: >2 Midnights Patient will require the following post-hospital care: None Practitioner: I am a practitioner with admitting privileges, knowledge of patient current condition, hospital course, and medical plan of care. Services: Services provided to patient in accordance with Admission requirements found in Title 42 Section 412.3 of the Code of Federal Regulations Patient History Date of Service: 01/07/22 Primary Care Provider: Daniel Reason for admission: Pneumonia, ESRD, Anemia History of Present Illness: Patient is a 76-year-old male with ESRD on dialysis Wednesday, , Wednesday, type 2 diabetes insulin-dependent, COPD, chronic diastolic CHF, hypertension, and chronic anemia who presented to the ED with shortness of breath. Patient was receiving dialysis for about 1 hour when he started to feel short of breath despite supplemental O2. He was noted to be saturating in the low 80s and subsequently placed on 15L NRB. His dialysis session was ended early, and he only had 1 liter taken off. Patient saturating 99% on 4L NC upon arrival to the ED. His labs were significant for hemoglobin 6.2, hematocrit 18.4, creatinine 7.2, sodium 132, troponin HS 339.2, BNP > 175,000. Chest x ray showed "prominent alveolar opacification in the mid and upper right lung field. Right lung field pneumonia would be most likely etiology. Given the patient was at dialysis, and asymmetric pulmonary edema or volume overload would be possible." 1 unit PRBC was ordered along with solumedrol, breathing treatment, azithromycin, and rocephin. He is admitted for further management. Allergies codeine Allergy (Verified 10/15/21 23:40) Hallucinations gabapentin Adverse Reaction (Verified 10/15/21 23:40) Hallucinations Home medications list reviewed: Yes Home Medications: Aspirin 1 tab PO BID 10/16/21 Atorvastatin Calcium 1 tab PO DAILY 10/16/21 Carvedilol [Coreg] 1 tab PO DAILY 10/16/21 Citalopram Hydrobromide [Citalopram HBr] 1 tab PO DAILY 10/16/21 Hydrocodone 7.5/APAP 325 [[place] 7.5/325 mg] 1 tab PO Q6H PRN #30 tab 10/16/21 Insulin Glargine,Hum.rec.anlog [Allyssaaglar Kwikpen U-100] 50 unit SQ DAILY 10/16/21 Multivit-Min/FA/Lycopen/Lutein [Centrum Silver Tablet] 1 tab PO DAILY 10/16/21 Pantoprazole Sodium 1 tab PO DAILY 10/16/21 Vit A/Vit C/Vit E/Zinc/Copper [Preservision Areds Softgel] 1 cap PO DAILY 10/16/21 Vit B Comp C/Folic Acid/Vit D3 [Dialyvite 800 Plus D Wafer] 1 tab PO DAILY 10/16/21 bisacodyL [Laxative] 1 tab PO DAILY 10/16/21 - Past Medical/Surgical History Diabetic: Yes -: Hypertension -: Hyperlipidemia -: Diabetes type 2, insulin dependent -: End-stage renal disease, hemodialysis-Wednesday, and Saturdays -: Diastolic CHF -: COPD -: skin graft for elctrical persaud - BLE 1970s -: Right shoulder surgery -: bilateral leg surgery Psychosocial/ Personal History: Patient is . He has 3 children - Family History mother and father Notes: adopted - Social History Smoking Status: Former smoker Alcohol use: No CD- Drugs: No Caffeine use: Yes Place of Residence: Home Review of Systems Respiratory: Shortness of Breath Physical Examination - Physical Exam General: Alert, In no apparent distress HEENT: Atraumatic, PERRLA, EOMI, Sclerae nonicteric Neck: Supple, No LAD Respiratory: Dull, Crackles/rales Cardiovascular: Regular rate/rhythm, Normal S1 S2 Gastrointestinal: Normal bowel sounds, No tenderness Musculoskeletal: No tenderness Integumentary: No rashes Neurological: Normal speech, Normal tone, Normal affect - Studies Laboratory Data (last 24 hrs) 01/07/22 18:00: PT 17.6 H, INR 1.59 01/07/22 18:00: WBC 10.4, Hgb 6.2 L*, Hct 18.4 L*, Plt Count 174 01/07/22 18:00: Sodium 132 L, Potassium 4.8, BUN 68 H, Creatinine 7.22 H*, Glucose 116 H, Total Bilirubin 1.8 H, AST 62 H, ALT 45, Alkaline Phosphatase 300 H Microbiology Data (last 24 hrs): 01/07/22 17:50 Nasopharnyx Influenza Type A Antigen Screen - Final 01/07/22 17:50 Nasopharnyx Influenza Type B Antigen Screen - Final Assessment and Plan - Problems (Diagnosis) (1) Anemia in ESRD (end-stage renal disease) Current Visit: Yes Status: Acute (2) Pneumonia Current Visit: Yes Status: Acute Qualifiers: Pneumonia type: due to unspecified organism Laterality: right Lung location: unspecified part of lung Qualified Code(s): J18.9 - Pneumonia, unspecified organism (3) Type 2 diabetes mellitus Current Visit: Yes Status: Chronic Qualifiers: Diabetes mellitus halfway insulin use: with halfway use Diabetes mellitus complication status: with hyperglycemia Qualified Code(s): E11.65 - Type 2 diabetes mellitus with hyperglycemia; Z79.4 - 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 administrator (current) use of insulin (4) CHF (congestive heart failure) Current Visit: Yes Status: Chronic Qualifiers: Heart failure type: diastolic Heart failure chronicity: acute on chronic Qualified Code(s): I50.33 - Acute on chronic diastolic (congestive) heart failure (5) COPD (chronic obstructive pulmonary disease) Current Visit: Yes Status: Chronic Qualifiers: Chronic bronchitis type: unspecified (6) Chronic kidney disease Current Visit: Yes Status: Chronic Qualifiers: Chronic kidney disease stage: on chronic dialysis Qualified Code(s): N18.6 - End stage renal disease; Z99.2 - Dependence on renal dialysis (7) Hypertension Current Visit: Yes Status: Chronic Qualifiers: Hypertension type: primary hypertension Qualified Code(s): I10 - Essential (primary) hypertension - Plan -1 unit PRBC ordered. Transfuse slowly given volume overload. Monitor CBC. -HD ordered for tomorrow. Nephrology consulted -Continue IV azithromycin and rocephin. Pulmonology consulted -Breathing treatments and supplemental O2 as needed -Elevated troponin likely secondary to demand ischemia. Troponin has been elevated in the past. Will recheck. Patient denies chest pain. -Monitor telemetry and pulse oximetry -Incentive spirometry -ACHS accu checks with moderate sliding scale and renal diet -Monitor and replete electrolytes per protocol -Reconcile and continue home medications -SCDs for VTE ppx -Full code Discharge Plan: Home Plan to discharge in: Greater than 2 days - Advance Directives Does patient have a Living Will: No Does patient have a Durable POA for Healthcare: No - Code Status/Comfort Care Code Status Assessed: Yes (Full) Critical Care: No Time Spent Managing Pts Care (In Minutes): 50
[2022-01-07] MEDS ORDERED: ACETAMINOPHEN 500 MG TAB PO PRN (20:42)
[2022-01-07] MEDS ORDERED: ONDANSETRON 4 MG/2 ML VIAL IV PRN (20:42)
[2022-01-07] MEDS ORDERED: ALBUTEROL 2.5 MG/3 ML NEB SOL NEB PRN (20:42)
[2022-01-07] MEDS: INSULIN -REGULAR HUMAN 50 UNIT/0.5 ML ML SQ SCH (21:00)
[2022-01-07 23:21] VITALS: BMI 29.5
[2022-01-08 03:58] LABS: Absolute Lymphocytes (CBC) 0.2 K/uL (0.7-4.9); Lymphocytes % 2.6 % (15.3-44.8); MCV 100.4 fL (80-100); MPV 8.1 fL (7.6-11.3); RBC Red Blood Cell Count 1.95 M/uL (4.33-5.43)
[2022-01-08 04:21] LABS: Albumin 2.5 g/dL (3.4-5.0); Bilirubin Total 2.7 mg/dL (0.2-1.0); CKMB Creatine Kinase MB 5.1 ng/mL (1.0-3.6); Phosphorus 5.8 mg/dL (2.5-4.9); Potassium 5.3 mmol/L (3.5-5.1); Protein, Total 6.3 g/dL (6.4-8.2)
[2022-01-08 04:22] LABS: Magnesium 2.1 mg/dL (1.8-2.4); Troponin High Sensitivity 274.4 pg/mL (<58.9)
[2022-01-08 04:24] LABS: Hematocrit 19.6 % (39.6-49.0)
[2022-01-08 05:00] LABS: Anisocytosis 3+; Blood Morphology Comment NOTED (NOT SEEN); Macrocytosis 1+; Platelet Estimate ADEQ
[2022-01-08] MEDS: INSULIN -REGULAR HUMAN 50 UNIT/0.5 ML ML SQ SCH ×4 (07:30→21:09)
[2022-01-08] MEDS ORDERED: CEFTRIAXONE 1000 MG/VIAL ONE (08:37)
[2022-01-08] MEDS ORDERED: INSULIN -REGULAR HUMAN 50 UNIT/0.5 ML ML ONE (08:38)
[2022-01-08] MEDS ORDERED: CEFTRIAXONE 1,000 MG in NA CHLORIDE 0.9% 50 ML IVPB SCH (09:00)
[2022-01-08] MEDS ORDERED: CEFTAZIDIME 1 GM VIAL IV SCH (09:00)
[2022-01-08] MEDS ORDERED: VANCOMYCIN 1 GM in NA CHLORIDE 0.9% 250 ML IVPB ONE (09:15)
[2022-01-08] MEDS ORDERED: VANCOMYCIN 1 GM in NA CHLORIDE 0.9% 250 ML IVPB SCH (10:00)
[2022-01-08] MEDS ORDERED: CEFTRIAXONE 1,000 MG in NA CHLORIDE 0.9% 50 ML IVPB ONE (10:00)
[2022-01-08] MEDS ORDERED: VANCOMYCIN 1 GM/VIAL ONE (10:38)
[2022-01-08] MEDS ORDERED: NA CHLORIDE 0.9% 0 ML ONE (10:38)
[2022-01-08] MEDS ORDERED: NA CHLORIDE 0.9% 250 ML ONE ×2 (10:50→10:55)
--- NOTE | 2022-01-08 12:35 | CON ---
Date of Consultation: 01/08/2022 Reason For Consultation: Elevated BUN and creatinine, over volume, end-stage renal disease. History Of Present Illness: This is a 76-year-old gentleman, well known to me from the dialysis with significant past medical history of hypertension, hyperlipidemia, CAD complicated with congestive heart failure, diabetes complicated with neuropathy, nephropathy, end-stage renal disease, at [facility] through left arm AV fistula, Wednesday, Wednesday, Wednesday, last dialysis was yesterday. The patient recently discharged from the rehab. The patient supposed to have dialysis on Wednesday, but did not have came to the dialysis yesterday, in the dialysis found to have low blood pressure and hypoxemic. We tried to do the dialysis yesterday, the patient could not tolerate full dialysis. The patient had severe congestive heart failure with ejection fraction of 40%. Apparently, outpatient workup, his hemoglobin was 6.9, did not receive any transfusion as outpatient. After 1 hour of dialysis, the patient's blood pressure started to be marginal and hypoxemic. The patient transferred to the ER. In the ER, found to have severely anemic and hypoxemia with pneumonia. For that reason, the patient was admitted for further treatment. Past Medical History: Includes; 1. Hypertension. 2. Hyperlipidemia. 3. CAD complicated with congestive heart failure. 4. Diabetes complicated with neuropathy and nephropathy. 5. End-stage renal disease, on dialysis Wednesday, Wednesday, Wednesday at [facility] through left upper arm AV fistula. Past Surgical History: Includes; 1. AV fistula. 2. Bilateral angiogram. Social History: Denied smoking, denied drinking, denied drugs abuse. Review of Systems: Head and Neck: No red eye. No ear pain. GI: No nausea. No vomiting. : No polyuria. No dysuria. No hematuria. College Sports Assistant: Not applicable. Respiratory: Has shortness of breath. Has cough with hemoptysis. Cardiovascular: Has shortness of breath. Has orthopnea. Endocrine: No polydipsia. Skin: No rash. Neuro: Has neuropathy. Musculoskeletal: Generalized fatigue. Family History: Positive for hypertension and diabetes. Allergies: TO CODEINE AND GABAPENTIN. Home Medications: Include; 1. Bisacodyl. 2. Vitamin B. 3. Pantoprazole. 4. Insulin. 5. Carvedilol. 6. Atorvastatin. 7. Aspirin. Current medications in the hospital include ceftriaxone, Tylenol, insulin, vancomycin. Physical Examination: Vital Signs: When I saw the patient; blood pressure 139/60, pulse of 88. Chest: Crackles bilateral, more prominent on the right side. Heart: S1, S2. Systolic murmur. Abdomen: Soft, nontender. Extremities: +1 edema. Cast on the right leg. Neurologic: Alert. No focality. Laboratory Data: WBC 7.3, H and H 6.9/19.6, platelets 145. Sodium 130, potassium 5.3, bicarb 25, BUN 75, creatinine 7.8, phosphorus 5.8. Troponin 274. BNP more than 175,000. Current Medications: The patient on include vancomycin, ceftriaxone, heparin, Zofran, insulin. Assessment And Plan: 1. End-stage renal disease with hyperkalemia, hyponatremia, and over volume. I am going to go ahead and arrange for another session of dialysis. I had long discussion with the patient, explained to him the need for dialysis. The patient verbalized understanding. We will dialyze the patient on low-potassium bath and sodium module for the blood pressure with low temperature and we will transfuse 2 units of blood with dialysis. We will continue to monitor the patient. 2. Hypertension, currently blood pressure on the lower side. Hold all blood pressure medications. 3. Pneumonia with sepsis, mostly healthcare-associated pneumonia as the patient has been recently discharged from the rehab. I am going to go ahead and get blood culture. I agree with cephalosporin and vancomycin for the time being and we will follow up. 4. Hyperkalemia. The patient is going to be dialyzed on low-potassium bath. 5. Anemia of chronic kidney disease. We will arrange for 2 units of blood transfusion. We will resume Retacrit for the patient and we will follow up. 6. Hyponatremia, will be corrected with dialysis. 7. Respiratory failure, multifactorial, secondary to pneumonia/over volume. We will dialyze the patient today and tomorrow we will challenge the patient. We will continue antibiotic, follow up with primary. 8. Peripheral artery disease. Follow up with primary. 9. Diabetes as by primary. Time spent examining the patient [id number], reviewing the data lab and radiology, placing orders, discussing with the patient, explaining risks, benefits, alternatives, discussing with the staff member including nursing and hemodialysis nurse, discussing with the hospitalist more than 65 minutes. VISHAL Voice ID: [id number] Report ID: [id number] MANJINDER
--- NOTE | 2022-01-08 12:53 | P.CNS ---
Date of Consult: 01/08/22 Reason for Consult: Pneumonia Primary Care Provider: Daniel Chief Complaint: Pneumonia, ESRD, Anemia History of Present Illness: Patient is 76 years of age end-stage renal disease metabolic syndrome diastolic dysfunction. With anemia worsening dyspnea still complains of intermittent hemoptysis was found to have right-sided infiltrate presumed pneumonia gotten worse over the past week denies any fever or chills Allergies codeine Allergy (Verified 10/15/21 23:40) Hallucinations gabapentin Adverse Reaction (Verified 10/15/21 23:40) Hallucinations Home Medications: Aspirin 1 tab PO BID 10/16/21 Atorvastatin Calcium 1 tab PO BEDTIME 10/16/21 Carvedilol [Coreg] 1 tab PO DAILY 10/16/21 Citalopram Hydrobromide [Citalopram HBr] 1 tab PO DAILY 10/16/21 Insulin Glargine,Hum.rec.anlog [Basaglar Kwikpen U-100] 50 unit SQ DAILY 10/16/21 Multivit-Min/FA/Lycopen/Lutein [Centrum Silver Tablet] 1 tab PO DAILY 10/16/21 Pantoprazole Sodium 1 tab PO DAILY 10/16/21 Vit A/Vit C/Vit E/Zinc/Copper [Preservision Areds Softgel] 1 cap PO DAILY 10/16/21 Vit B Comp C/Folic Acid/Vit D3 [Dialyvite 800 Plus D Wafer] 1 tab PO DAILY 10/16/21 bisacodyL [Laxative] 1 tab PO DAILY 10/16/21 - Past Medical/Surgical History Diabetic: Yes -: Hypertension -: Hyperlipidemia -: Diabetes type 2, insulin dependent -: End-stage renal disease, hemodialysis-Wednesday, and Saturdays -: Diastolic CHF -: COPD -: skin graft for elctrical persaud - BLE 1970s -: Right shoulder surgery -: bilateral leg surgery Psychosocial/ Personal History: Patient is . He has 3 children - Family History mother and father Notes: adopted - Social History Smoking Status: Unknown if ever smoked Alcohol use: No CD- Drugs: No Caffeine use: Yes Place of Residence: Home Review of Systems 10-point ROS is otherwise unremarkable General: Weakness Respiratory: Cough, Hemoptysis Physical Examination Temp Pulse Resp BP Pulse Ox 74 15 139/63 98 01/08/22 08:00 01/08/22 08:00 01/08/22 08:00 01/08/22 08:00 General: Alert, In no apparent distress, Oriented x3 Respiratory: Crackles/rales (Crackles on the right side) Cardiovascular: Regular rate/rhythm, Edema Gastrointestinal: Normal bowel sounds, Soft and benign Laboratory Data (last 24 hrs) 01/07/22 18:00: PT 17.6 H, INR 1.59 01/07/22 18:00: WBC 10.4, Hgb 6.2 L*, Hct 18.4 L*, Plt Count 174 01/07/22 18:00: Sodium 132 L, Potassium 4.8, BUN 68 H, Creatinine 7.22 H*, Glucose 116 H, Total Bilirubin 1.8 H, AST 62 H, ALT 45, Alkaline Phosphatase 300 H - Problems (1) Pneumonia Current Visit: Yes Status: Acute Plan: Patient is 76 years of age admitted with worsening dyspnea over the past week he has end-stage renal disease anabolic syndrome diastolic dysfunction he has appears to have a right upper and middle lobe consolidation patient is high risk for resistant organism changed to cefepime vancomycin patient has chronic renal failure is anemic oxygenation satisfactory blood cultures ordered Qualifiers: Pneumonia type: due to unspecified organism Laterality: right Lung loc ation: unspecified part of lung Qualified Code(s): J18.9 - Pneumonia, unspecified organism
[2022-01-08] MEDS: EPOETIN ALFA 10,000 UNIT/ML VIAL IV SCH (13:33)
--- NOTE | 2022-01-08 14:33 | EKG ---
Test Date: 2022-01-07 Test Time: 17:50:50 Pit Crew Support Worker: LULA MEASUREMENT RESULTS: Intervals: Rate: 81 [place]: QRSD: 180 QT: 462 QTc: 536 [place]: P: [place]: QRS: 252 T: 61 INTERPRETIVE STATEMENTS: Atrial fibrillation with a competing junctional pacemaker Right bundle branch block Abnormal ECG Compared to ECG 10/15/2021 18:33:33 Sinus rhythm no longer present Left anterior fascicular block no longer present Bifascicular block no longer present Electronically Signed On 01-08-22 14:30:40 CDT by Chico Henriquez
[2022-01-08] MEDS ORDERED: ALBUTEROL 2.5 MG/3 ML NEB SOL NEB PRN (15:00)
[2022-01-08] MEDS ORDERED: AZITHROMYCIN IV 500 MG in NA CHLORIDE 0.9% 250 ML IVPB SCH (16:00)
[2022-01-08] MEDS: CEFTAZIDIME 1 GM in NA CHLORIDE 0.9% 50 ML IV SCH (16:21)
[2022-01-09] MEDS: BENZONATATE 100 MG CAP PO PRN ×2 (00:14→20:54)
[2022-01-09 06:23] LABS: Absolute Lymphocytes (CBC) 0.4 K/uL (0.7-4.9); Lymphocytes % 3.6 % (15.3-44.8); MCV 97.6 fL (80-100); MPV 8.3 fL (7.6-11.3); RBC Red Blood Cell Count 2.25 M/uL (4.33-5.43)
[2022-01-09 06:38] LABS: Albumin 2.6 g/dL (3.4-5.0); Bilirubin Total 1.9 mg/dL (0.2-1.0); Magnesium 2.1 mg/dL (1.8-2.4); Phosphorus 4.2 mg/dL (2.5-4.9); Potassium 4.1 mmol/L (3.5-5.1); Protein, Total 6.3 g/dL (6.4-8.2)
[2022-01-09] MEDS: INSULIN -REGULAR HUMAN 50 UNIT/0.5 ML ML SQ SCH ×4 (07:30→20:54)
--- NOTE | 2022-01-09 08:13 | P.PN ---
Subjective Date of Service: 01/09/22 Primary Care Provider: Daniel Chief Complaint: Pneumonia, ESRD, Anemia Subjective: Improving (Patient is improving no new complaints) Review of Systems General: Weakness Respiratory: Shortness of Breath Physical Examination - Vital Signs Temperature: 100.4 F Blood Pressure: 111/70 Pulse: 95 Respirations: 19 Pulse Ox (%): 93 - Physical Exam General: Alert, Oriented x3, Mild distress Respiratory: Crackles/rales (Crackles on the right side) Cardiovascular: Regular rate/rhythm, Edema Gastrointestinal: Normal bowel sounds, Soft and benign Assessment And Plan - Current Problems (Diagnosis) (1) Pneumonia Current Visit: Yes Status: Acute Plan: Chest x-ray shows right upper lobe hazinessinfiltrate although there is no active signs of sepsis patient was transfused normal white count cultures are negative DC vancomycin CT of the chest without contrast oxygenation satisfactory 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 levofloxacin dose adjusted for his renal failure Qualifiers: Pneumonia type: due to unspecified organism Laterality: right Lung location: unspecified part of lung Qualified Code(s): J18.9 - Pneumonia, unspecified organism
--- NOTE | 2022-01-09 08:25 | RAD REPORT ---
EXAM DESCRIPTION: RAD - Chest Single View - 01/09/2022 5:43 am CLINICAL HISTORY: Pneumonia Chest pain. COMPARISON: Chest Single View dated 01/07/2022; Chest Single View dated 10/15/2021; Chest Pa And Lat ( 2 Views) dated 06/06/2019; Chest Pa And Lat (2 Views) dated 08/03/2018 FINDINGS: Portable technique limits examination quality. Since 01/07/2022, there has been mild improvement in the right upper lobe pulmonary infiltrate/pneumo jermaine. Mild pulmonary edema persists. The heart remains enlarged. No displaced fractures. IMPRESSION: Mild improvement in right upper lobe infiltrate since comparative study.
--- NOTE | 2022-01-09 10:08 | RAD REPORT ---
EXAM DESCRIPTION: CT - Thorax Wo Con CLINICAL HISTORY: Chest pain Right upper lobe pneumonia COMPARISON: Thorax Wo Con dated 05/18/2018; Chest Single View dated 01/09/2022 FINDINGS: Moderate area of consolidation is noted in the posterior right upper lobe with air broncho grams most compatible with pneumonia. Small bilateral pleural effusions are seen. No pneumothorax. Th e heart is moderately enlarged. Moderate hiatal hernia. Lack of contrast makes it difficult to fully assess both hilar regions, however the right hilum is mi ldly prominent which could indicate mild adenopathy. Mild thoracic spondylosis. Mild free fluid is seen in the upper abdomen. All CT scans are performed using dose optimization technique as appropriate and may include automated exposure control or mA/KV adjustment according to patient size. IMPRESSION: Moderate area of consolidation in the posterior right upper lobe with air bronchograms m ost compatible with pneumonia.Follow-up imaging after appropriate treatment to ensure complete cleara nce would be suggested. Small bilateral pleural effusions.
[2022-01-09] MEDS: CEFTAZIDIME 1 GM in NA CHLORIDE 0.9% 50 ML IV SCH (10:15)
--- NOTE | 2022-01-09 10:17 | P.PN ---
Subjective Date of Service: 01/09/22 Primary Care Provider: Daniel Chief Complaint: Pneumonia, ESRD, Anemia Subjective: No new changes Physical Examination - Vital Signs Temperature: 100.4 F Blood Pressure: 111/70 Pulse: 95 Respirations: 19 Pulse Ox (%): 93 - Physical Exam General: Other (Appears as his stated age) HEENT: Atraumatic, Normocephalic Neck: Supple Respiratory: Other (Symmetric chest expansion) Cardiovascular: No rubs, No murmurs Gastrointestinal: Soft and benign, No rebound Musculoskeletal: No clubbing Integumentary: No warmth Neurological: Normal tone Urinary: Other (No bladder distention) External genitalia: Deferred Rectal: Deferred Assessment And Plan - Plan 1. ESRD on outpt HD MWF at [facility]. Next HD tomorrow then qMWF next week. 2. Hypertension. BP at goal. Monitor BP. Cont current med regimen. 3. Pneumonia with sepsis, mostly healthcare-associated pneumonia as the patient has been recently discharged from the rehab. Abx per other services. F/u BCx. 4. Hyperkalemia. Resolved. HD as above. 5. Anemia of chronic kidney disease. S/p pRBC transfusion. Cont Retacrit. 6. Hyponatremia. Correction via HD. 7. Acute respiratory failure, multifactorial, secondary to pneumonia/over volume. HD & abx as above. 8. Peripheral artery disease. Per other services. 9. DM2. Per primary team.
[2022-01-09 10:44] LABS: Anisocytosis 3+; Blood Morphology Comment NOTED (NOT SEEN); Platelet Estimate ADEQ; Smudge Cells PRESENT; Toxic Granulation PRESENT
[2022-01-09 10:45] LABS: Poikilocytosis 1+
--- NOTE | 2022-01-09 17:14 | P.PN ---
Subjective Date of Service: 01/08/22 Subjective: No new changes, No C/O voiced, Improving patient is clinically still with cough and congestion. Anemia improved; CT pending Review of Systems 10-point ROS is otherwise unremarkable Physical Examination - Vital Signs Temperature: 98.6 F Blood Pressure: 150/63 Pulse: 78 Respirations: 24 Pulse Ox (%): 96 - Physical Exam General: Alert, In no apparent distress HEENT: Atraumatic, PERRLA, EOMI Neck: Supple, JVD not distended Respiratory: Clear to auscultation bilaterally, Normal air movement Cardiovascular: Regular rate/rhythm, Normal S1 S2 Gastrointestinal: Normal bowel sounds, No tenderness Musculoskeletal: No tenderness Integumentary: No rashes Neurological: Normal speech, Normal tone, Normal affect Lymphatics: No axilla or inguinal lymphadenopathy - Studies Medications List Reviewed: Yes Assessment & Plan - Problems (Diagnosis) (1) Anemia in ESRD (end-stage renal disease) Current Visit: Yes Status: Acute (2) Pneumonia Current Visit: Yes Status: Acute Qualifiers: Pneumonia type: due to unspecified organism Laterality: right Lung location: unspecified part of lung Qualified Code(s): J18.9 - Pneumonia, unspecified organism (3) CHF (congestive heart failure) Current Visit: Yes Status: Chronic Qualifiers: Heart failure type: diastolic Heart failure chronicity: acute on chronic Qualified Code(s): I50.33 - Acute on chronic diastolic (congestive) heart failure (4) COPD (chronic obstructive pulmonary disease) Current Visit: Yes Status: Chronic Qualifiers: Chronic bronchitis type: unspecified (5) Hypertension Current Visit: Yes Status: Chronic Qualifiers: Hypertension type: primary hypertension Qualified Code(s): I10 - Essential (primary) hypertension (6) Type 2 diabetes mellitus Current Visit: Yes Status: Chronic Qualifiers: Diabetes mellitus residential insulin use: with residential use Diabetes mellitus complication status: with hyperglycemia Qualified Code(s): E11.65 - Type 2 diabetes mellitus with hyperglycemia; 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 IV abx 2. HD per nephrology 3. Anemia improved 4. CT pending 5. Neb as needed Discharge Plan: Home Plan to discharge in: Greater than 2 days - Advance Directives Does patient have a Living Will: No Does patient have a Durable POA for Healthcare: No - Code Status/Comfort Care Code Status Assessed: Yes Code Status: Full Code Critical Care: No Time Spent Managing PTS Care (In Minutes): 45
[2022-01-10 06:01] LABS: Absolute Lymphocytes (CBC) 0.7 K/uL (0.7-4.9); Hematocrit 23.6 % (39.6-49.0); Lymphocytes % 8.8 % (15.3-44.8); MCV 100.6 fL (80-100); MPV 8.2 fL (7.6-11.3); RBC Red Blood Cell Count 2.34 M/uL (4.33-5.43)
[2022-01-10 06:38] LABS: Albumin 2.5 g/dL (3.4-5.0); Bilirubin Total 2.1 mg/dL (0.2-1.0); Phosphorus 4.5 mg/dL (2.5-4.9); Potassium 4.1 mmol/L (3.5-5.1); Protein, Total 6.3 g/dL (6.4-8.2)
[2022-01-10] MEDS: INSULIN -REGULAR HUMAN 50 UNIT/0.5 ML ML SQ SCH ×4 (07:30→22:24)
--- NOTE | 2022-01-10 07:37 | RAD REPORT ---
EXAM DESCRIPTION: Tony Single View01/10/2022 6:58 am CLINICAL HISTORY: Chest pain COMPARISON: January 09, 2022 FINDINGS: No significant change in the right upper lobe consolidation. Mild bilateral interstitial lung opacities. Heart remains enlarged. Small bilateral pleural effusions. IMPRESSION: No significant change in the right upper lobe pneumonia
--- NOTE | 2022-01-10 08:42 | P.PN ---
Subjective Date of Service: 01/10/22 Primary Care Provider: Daniel Chief Complaint: Pneumonia, ESRD, Anemia Subjective: Improving (Patient is improving still having occasional hemoptysis) Review of Systems General: Weakness Respiratory: Cough, Shortness of Breath, Hemoptysis Physical Examination - Vital Signs Temperature: 99.1 F Blood Pressure: 153/67 Pulse: 69 Respirations: 20 Pulse Ox (%): 92 - Physical Exam General: Alert, In no apparent distress, Oriented x3 Respiratory: Crackles/rales (Crackles on the right side) Cardiovascular: Regular rate/rhythm, Normal S1 S2, Edema - Studies Medications List Reviewed: Yes Assessment And Plan - Current Problems (Diagnosis) (1) Pneumonia Current Visit: Yes Status: Acute Plan: Patient admitted with right upper lobe pneumonia mild hemoptysis blood cultures are negative so far oxygenation satisfactory vital signs stable patient is eating and drinking continue with ceftazidime add p.o. doxycycline and p.o. levofloxacin possible discharge in 1 to 2 days once the procalcitonin levels have declined significantly evaluate for discharge Qualifiers: Pneumonia type: due to unspecified organism Laterality: right Lung location: unspecified part of lung Qualified Code(s): J18.9 - Pneumonia, unspecified organism
[2022-01-10] MEDS ORDERED: CEFTAZIDIME 1 GM VIAL IV SCH (09:00)
--- NOTE | 2022-01-10 09:50 | P.PN ---
Subjective Date of Service: 01/10/22 Primary Care Provider: Daniel Chief Complaint: Pneumonia, ESRD, Anemia Subjective: Other (Received HD today.) Physical Examination - Vital Signs Temperature: 99.1 F Blood Pressure: 153/67 Pulse: 69 Respirations: 20 Pulse Ox (%): 92 - Physical Exam General: In no apparent distress HEENT: Atraumatic, Normocephalic Neck: Supple, JVD not distended Respiratory: Other (Symmetric chest expansion) Cardiovascular: No rubs, No murmurs Gastrointestinal: Soft and benign, No rebound Musculoskeletal: No clubbing Integumentary: No warmth Neurological: Normal tone Urinary: Other (No bladder distention) External genitalia: Deferred Rectal: Deferred - Studies Medications List Reviewed: Yes Assessment And Plan - Plan 1. ESRD on outpt HD MWF at [facility]. Received HD today. Next HD Wednesday per qMWF sked. 2. Hypertension. BP at goal. Monitor BP. Cont current med regimen. 3. Pneumonia with sepsis, mostly healthcare-associated pneumonia as the patient has been recently discharged from the rehab. Abx per other services. F/u BCx. 4. Hyperkalemia. Resolved. HD as above. 5. Anemia of chronic kidney disease. S/p pRBC transfusion. Cont Retacrit. 6. Hyponatremia. Correction via HD. 7. Acute respiratory failure, multifactorial, secondary to pneumonia/over volume. HD & abx as above. 8. Peripheral artery disease. Per other services. 9. DM2. Per primary team.
[2022-01-10] MEDS: EPOETIN ALFA 10,000 UNIT/ML VIAL IV SCH (10:30)
[2022-01-10] MEDS: CEFTAZIDIME 1 GM in NA CHLORIDE 0.9% 50 ML IV SCH (13:56)
[2022-01-10] MEDS: levoFLOXacin 250 MG TAB PO SCH (13:56)
[2022-01-10] MEDS: DOXYCYCLINE 100 MG CAP PO SCH ×2 (13:56→22:23)
--- NOTE | 2022-01-10 15:41 | P.PN ---
Date of Service: 01/09/22 Subjective Subjective: Patient is improved. Clinical symptoms much better. Anemia stable; CT with pneumonia Review of Systems 10-point ROS is otherwise unremarkable Physical Examination - Vital Signs reviewed - Physical Exam General: Alert, In no apparent distress Respiratory: Clear to auscultation bilaterally, Normal air movement Cardiovascular: Regular rate/rhythm, Normal S1 S2 Gastrointestinal: Normal bowel sounds, No tenderness Neurological: Normal speech, Normal tone, Normal affect Assessment & Plan - Problems (Diagnosis) (1) Anemia in ESRD (end-stage renal disease) Current Visit: Yes Status: Acute (2) Pneumonia Current Visit: Yes Status: Acute Qualifiers: Pneumonia type: due to unspecified organism Laterality: right Lung location: unspecified part of lung Qualified Code(s): J18.9 - Pneumonia, unspecified organism (3) CHF (congestive heart failure) Current Visit: Yes Status: Chronic Qualifiers: Heart failure type: diastolic Heart failure chronicity: acute on chronic Qualified Code(s): I50.33 - Acute on chronic diastolic (congestive) heart failure (4) COPD (chronic obstructive pulmonary disease) Current Visit: Yes Status: Chronic Qualifiers: Chronic bronchitis type: unspecified (5) Hypertension Current Visit: Yes Status: Chronic Qualifiers: Hypertension type: primary hypertension Qualified Code(s): I10 - Essential (primary) hypertension (6) Type 2 diabetes mellitus Current Visit: Yes Status: Chronic Qualifiers: Diabetes mellitus terminal operator insulin use: with terminal operator use Diabetes mellitus complication status: with hyperglycemia Qualified Code(s): E11.65 - Type 2 diabetes mellitus with hyperglycemia; Z79.4 - jail (current) use of insulin - Plan Continue with POC as mentioned below: 1. IV abx 2. HD per nephrology 3. Anemia improved 4. CT pending 5. Neb as needed Discharge Plan: Rehab Plan to discharge in: Greater than 2 days - Advance Directives Does patient have a Living Will: No Does patient have a Durable POA for Healthcare: No - Code Status/Comfort Care Code Status Assessed: Yes Code Status: Full Code Critical Care: No Time Spent Managing PTS Care (In Minutes): 45
--- NOTE | 2022-01-10 15:42 | P.PN ---
Date of Service: 01/10/22 Subjective Subjective: Continues to get better; clinical symptoms are improved Review of Systems 10-point ROS is otherwise unremarkable Physical Examination - Vital Signs reviewed - Physical Exam General: Alert, In no apparent distress Respiratory: Clear to auscultation bilaterally, Normal air movement Cardiovascular: Regular rate/rhythm, Normal S1 S2 Gastrointestinal: Normal bowel sounds, No tenderness Neurological: Normal speech, Normal tone, Normal affect Assessment & Plan - Problems (Diagnosis) (1) Anemia in ESRD (end-stage renal disease) Current Visit: Yes Status: Acute (2) Pneumonia Current Visit: Yes Status: Acute Qualifiers: Pneumonia type: due to unspecified organism Laterality: right Lung location: unspecified part of lung Qualified Code(s): J18.9 - Pneumonia, unspecified organism (3) CHF (congestive heart failure) Current Visit: Yes Status: Chronic Qualifiers: Heart failure type: diastolic Heart failure chronicity: acute on chronic Qualified Code(s): I50.33 - Acute on chronic diastolic (congestive) heart failure (4) COPD (chronic obstructive pulmonary disease) Current Visit: Yes Status: Chronic Qualifiers: Chronic bronchitis type: unspecified (5) Hypertension Current Visit: Yes Status: Chronic Qualifiers: Hypertension type: primary hypertension Qualified Code(s): I10 - Essential (primary) hypertension (6) Type 2 diabetes mellitus Current Visit: Yes Status: Chronic Qualifiers: Diabetes mellitus manager terminal insulin use: with group home use Diabetes mellitus complication status: with hyperglycemia Qualified Code(s): E11.65 - Type 2 diabetes mellitus with hyperglycemia; Z79.4 - 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 Continue with IV abx 2. HD per nephrology 3. Anemia stable 4. CT with pneumonia; 5. Neb as needed 6. Family decided to proceed with inpatient rehab @ [facility] rehab. Discharge Plan: Rehab Plan to discharge in: Greater than 2 days - Advance Directives Does patient have a Living Will: No Does patient have a Durable POA for Healthcare: No - Code Status/Comfort Care Code Status Assessed: Yes Code Status: Full Code Critical Care: No Time Spent Managing PTS Care (In Minutes): 45
[2022-01-11] MEDS: BENZONATATE 100 MG CAP PO PRN (05:50)
[2022-01-11 06:46] LABS: Absolute Lymphocytes (CBC) 0.6 K/uL (0.7-4.9); Hematocrit 23.2 % (39.6-49.0); Lymphocytes % 7.8 % (15.3-44.8); MCV 100.6 fL (80-100); MPV 8.5 fL (7.6-11.3); RBC Red Blood Cell Count 2.31 M/uL (4.33-5.43)
[2022-01-11 07:42] LABS: Albumin 2.4 g/dL (3.4-5.0); Bilirubin Total 2.3 mg/dL (0.2-1.0); Phosphorus 3.1 mg/dL (2.5-4.9); Protein, Total 6.2 g/dL (6.4-8.2)
[2022-01-11 07:43] LABS: Magnesium 2.2 mg/dL (1.8-2.4); Potassium 4.1 mmol/L (3.5-5.1)
[2022-01-11] MEDS: INSULIN -REGULAR HUMAN 50 UNIT/0.5 ML ML SQ SCH ×4 (09:12→22:13)
[2022-01-11] MEDS: DOXYCYCLINE 100 MG CAP PO SCH ×2 (09:12→22:14)
[2022-01-11] MEDS: levoFLOXacin 250 MG TAB PO SCH (09:12)
[2022-01-11] MEDS: CEFTAZIDIME 1 GM in NA CHLORIDE 0.9% 50 ML IV SCH (09:13)
--- NOTE | 2022-01-11 09:26 | RAD REPORT ---
EXAM DESCRIPTION: RAD - Chest Single View - 01/11/2022 8:12 am CLINICAL HISTORY: pneumonia Chest pain. COMPARISON: Chest Single View dated 01/10/2022; Chest Single View dated 01/09/2022; Chest Single View dated 01/07/2022; Chest Single View dated 10/15/2021 FINDINGS: Portable technique limits examination quality. Right upper lobe consolidation appears mildly progressive since the comparative study. Mild pulmonary edema also suspected. The heart is moderately enlarged in size. IMPRESSION: Mild worsening in the right upper lobe pneumonia.
--- NOTE | 2022-01-11 10:25 | P.PN ---
Subjective Date of Service: 01/11/22 Primary Care Provider: Daniel Chief Complaint: Pneumonia, ESRD, Anemia Subjective: No new changes Physical Examination - Vital Signs Temperature: 98.4 F Blood Pressure: 147/70 Pulse: 96 Respirations: 20 Pulse Ox (%): 93 - Physical Exam General: Other (appears chronically ill) HEENT: Atraumatic, Normocephalic Neck: Supple, JVD not distended Respiratory: Other (symmetric chest expansion) Cardiovascular: No rubs, No murmurs Gastrointestinal: Soft and benign, No rebound Musculoskeletal: No clubbing Integumentary: No warmth Neurological: Normal tone Urinary: Other (no bladder distention) External genitalia: Deferred Rectal: Deferred - Studies Medications List Reviewed: Yes Assessment And Plan - Plan 1. ESRD on outpt HD MWF at [facility]. Next HD Wednesday per qMWF sked. 2. Hypertension. BP at goal. Monitor BP. Cont current med regimen. 3. Pneumonia with sepsis, mostly healthcare-associated pneumonia as the patient has been recently discharged from the rehab. Abx per other services. F/u BCx. 4. Hyperkalemia. Resolved. HD as above. 5. Anemia of chronic kidney disease. S/p pRBC transfusion. Cont Retacrit. 6. Hyponatremia. Correction via HD. 7. Acute respiratory failure, multifactorial, secondary to pneumonia/over volume. HD & abx as above. 8. Peripheral artery disease. Per other services. 9. DM2. Per primary team.
[2022-01-11 23:00] VITALS: O2SAT 94
--- NOTE | 2022-01-11 23:06 | P.PN ---
Date of Service: 01/11/22 Subjective Subjective: patient is clinically feeling much better. Symptoms continue to improve. Patient denies any new complaints. Awaiting for acceptance at [facility] inpatient rehab. Review of Systems 10-point ROS is otherwise unremarkable Physical Examination - Vital Signs reviewed - Physical Exam General: Alert, In no apparent distress Respiratory: Clear to auscultation bilaterally, Normal air movement Cardiovascular: Regular rate/rhythm, Normal S1 S2 Gastrointestinal: Normal bowel sounds, No tenderness Neurological: Normal speech, Normal tone, Normal affect Assessment & Plan - Problems (Diagnosis) (1) Anemia in ESRD (end-stage renal disease) Current Visit: Yes Status: Acute (2) Pneumonia Current Visit: Yes Status: Acute Qualifiers: Pneumonia type: due to unspecified organism Laterality: right Lung location: unspecified part of lung Qualified Code(s): J18.9 - Pneumonia, unspecified organism (3) CHF (congestive heart failure) Current Visit: Yes Status: Chronic Qualifiers: Heart failure type: diastolic Heart failure chronicity: acute on chronic Qualified Code(s): I50.33 - Acute on chronic diastolic (congestive) heart failure (4) COPD (chronic obstructive pulmonary disease) Current Visit: Yes Status: Chronic Qualifiers: Chronic bronchitis type: unspecified (5) Hypertension Current Visit: Yes Status: Chronic Qualifiers: Hypertension type: primary hypertension Qualified Code(s): I10 - Essential (primary) hypertension (6) Type 2 diabetes mellitus Current Visit: Yes Status: Chronic Qualifiers: Diabetes mellitus intermodal customer service insulin use: with group home use Diabetes mellitus complication status: with hyperglycemia Qualified Code(s): E11.65 - Type 2 diabetes mellitus with hyperglycemia; Z79.4 - oil 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 Continue with IV abx 2. HD per nephrology 3. Anemia stable 4. CT with pneumonia; repeat CXR suggests slight worsening but clinically patient is improving. O2 sats stable on RA 5. Neb as needed 6. Strict blood pressure and blood sugar control 7. Monitor volume status closely 8. Family decided to proceed with inpatient rehab @ [facility]. Discharge Plan: Rehab Plan to discharge in: Greater than 2 days - Advance Directives Does patient have a Living Will: No Does patient have a Durable POA for Healthcare: No - Code Status/Comfort Care Code Status Assessed: Yes Code Status: Full Code Critical Care: No Time Spent Managing PTS Care (In Minutes): 45
[2022-01-12 05:55] LABS: Magnesium 2.1 mg/dL (1.8-2.4); Potassium 3.9 mmol/L (3.5-5.1)
[2022-01-12] MEDS: INSULIN -REGULAR HUMAN 50 UNIT/0.5 ML ML SQ SCH ×2 (07:30→11:30)
[2022-01-12] MEDS ORDERED: POTASSIUM CL SA 10 MEQ TAB PO ONE (09:00)
[2022-01-12] MEDS: DOXYCYCLINE 100 MG CAP PO SCH (09:15)
[2022-01-12 09:45] VITALS: BP 157/65; TEMP 97.8
--- NOTE | 2022-01-12 11:26 | P.DS ---
Admission Date: 01/07/22 Discharge Date: 01/12/22 Primary Care Provider: Daniel Disposition: TRANSFER TO INPATIENT REHAB Discharge Condition: GOOD Reason for Admission: Pneumonia, ESRD, Anemia Consultations: 1. Pulmonary Medicine 2. Nephrology Hospital Course: DIAGNOSES: # Sepsis secondary to Right Upper Lobe Pneumonia # Acute Hypoxic Respiratory Failure secondary to Hypervolemia due to ESRD vs CHF exacerbation # Acute on Chronic Anemia of Chronic Kidney Disease s/p 1 unit pRBCs # Type II NSTEMI (Demand Ischemia) likely secondary to above # End-Stage Ren[facility] # Type II Diabetes Mellitus # Chronic Obstructive Pulmonary Disease # Chronic Congestive Diastolic Heart Failure # Peripheral Artery Disease HOSPITAL COURSE: Mr. Guzman Mayers is a pleasant 76 year old male with a past medical history significant for end-stage renal disease on [facility] iHD, chronic diastolic heart failure, type 2 diabetes mellitus, chronic obstructive pulmonary disease, and peripheral arterial disease who was admitted to the [facility] on 01/07/2022 for shortness of breath. He was admitted to the Medicine service for further evaluation. Upon further evaluation, he was found to have a hemoglobin of 6.2 requiring 1 unit PRBCs and acute hypoxic respiratory failure secondary to hypervolemia from ESRD versus CHF exacerbation. Additionally, he was found to have sepsis due to a right upper lobe pneumonia as well as a type II NSTEMI secondary to the above conditions. He was treated with IV antibiotics, with significant improvement of his symptoms. His hemoglobin remained stable throughout his hospitalization. Pulmonary Medicine was consulted and he was treated and evaluated by Dr. Hoang. Neph rology was also consulted and volume was removed via hemodialysis. Over the course of his hospitalization, his symptoms improved significantly and he was weaned down to 1 L oxygen. He was evaluated by Physical Therapy and it was recommended that he be discharged to inpatient rehab. With the assistance of case management, he was accepted to [facility]. On 01/12/2022, he was seen on morning rounds and deemed medically stable for discharge. He was discharged with instructions to schedule follow-up appointments (after discharge from rehab) with his PCP in 3-5 days, Pulmonary (Dr. Hoang) in 5-7 days, and with Cardiology (Dr. Saucedo) in 5-7 days. He was continued on an additional 7 days of levofloxacin + doxycycline to complete his antibiotic course and advised to have a follow-up chest x-ray with his PCP or Pulmonary in 4-6 weeks to ensure resolution of his pneumonia. He was given the opportunity to ask questions and reported no further questions. Furthermore, all questions were answered to the best of my ability. Today, I personally spent 25 minutes on his case, of which greater than 50% of the time was spent in patient education, counseling, and coordination of care as described above. Vital Signs/Physical Exam: Temp Pulse Resp BP Pulse Ox 97.8 F 96 H 18 157/65 H 91 01/12/22 08:00 01/12/22 08:00 01/12/22 08:00 01/12/22 08:00 01/12/22 08:00 General: Alert, In no apparent distress, Oriented x3 HEENT: Atraumatic, PERRLA, Mucous membr. moist/pink, EOMI, Sclerae nonicteric Neck: Supple, JVD not distended Respiratory: Clear to auscultation bilaterally, Normal air movement Cardiovascular: No edema, Regular rate/rhythm, Normal S1 S2, No gallops, No rubs, No murmurs Gastrointestinal: Normal bowel sounds, Soft and benign, Non-distended, No tende rness, No rebound, No guarding Musculoskeletal: No clubbing Integumentary: No rashes Neurological: Normal speech, Cranial nerves 3-12 intact, Normal affect Laboratory Data at Discharge: WBC 7.6 K/uL (4.3-10.9) 01/11/22 06:20 Hgb 8.0 g/dL (13.6-17.9) L 01/11/22 06:20 Hct 23.2 % (39.6-49.0) L 01/11/22 06:20 Plt Count 172 K/uL (152-406) 01/11/22 06:20 PT 17.6 SECONDS (9.5-12.5) H 01/07/22 18:00 INR 1.59 01/07/22 18:00 Sodium 136 mmol/L (136-145) 01/12/22 04:58 Potassium 3.9 mmol/L (3.5-5.1) 01/12/22 04:58 BUN 72 mg/dL (7-18) H 01/12/22 04:58 Creatinine 5.67 mg/dL (0.55-1.3) H* 01/12/22 04:58 Glucose 161 mg/dL (74-106) H 01/12/22 04:58 Phosphorus 3.1 mg/dL (2.5-4.9) 01/11/22 06:20 Magnesium 2.1 mg/dL (1.8-2.4) 01/12/22 04:58 Total Bilirubin 2.3 mg/dL (0.2-1.0) H 01/11/22 06:20 AST 58 U/L (15-37) H 01/11/22 06:20 ALT 71 U/L (12-78) 01/11/22 06:20 Alkaline Phosphatase 353 U/L (45-117) H 01/11/22 06:20 Triglycerides 106 mg/dL (<150) 01/08/22 03:27 Cholesterol 66 mg/dL (<200) 01/08/22 03:27 HDL Cholesterol 12 mg/dL (40-60) L 01/08/22 03:27 Cholesterol/HDL Ratio 5.50 01/08/22 03:27 Home Medications: Aspirin 1 tab PO BID 10/16/21 Atorvastatin Calcium 1 tab PO BEDTIME 10/16/21 Carvedilol [Coreg] 1 tab PO DAILY 10/16/21 Citalopram Hydrobromide [Citalopram HBr] 1 tab PO DAILY 10/16/21 Insulin Glargine,Hum.rec.anlog [Basaglar Kwikpen U-100] 50 unit SQ DAILY 10/16/21 Multivit-Min/FA/Lycopen/Lutein [Centrum Silver Tablet] 1 tab PO DAILY 10/16/21 Pantoprazole Sodium 1 tab PO DAILY 10/16/21 Vit A/Vit C/Vit E/Zinc/Copper [Preservision Areds Softgel] 1 cap PO DAILY 10/16/21 Vit B Comp C/Folic Acid/Vit D3 [Dialyvite 800 Plus D Wafer] 1 tab PO DAILY 10/16/21 bisacodyL [Laxative] 1 tab PO DAILY 10/16/21 Benzonatate [Tessalon Perle*] 100 mg PO TID PRN cap 01/12/22 Doxycycline Hyclate 100 mg PO BID 7 Days #14 01/12/22 Epoetin [Retacrit] 10,000 unit IV EVERY HD vial 01/12/22 levoFLOXacin [Levaquin*] 500 mg PO Q48H 7 Days tab 01/12/22 New Medications: Doxycycline Hyclate 100 mg PO BID 7 Days #14 Physician Discharge Instructions: - You are being discharged to [facility], following discharge: 1. Please schedule a follow-up with your PCP in 3-5 days - You will need to repeat your chest x-ray in 4-6 weeks to make sure the pneumonia has gone away 2. Please schedule a follow-up with Pulmonary Medicine (Dr. Hoang) in 5-7 days 3. Please schedule a follow-up with Cardiology (Dr. Saucedo) in 5-7 days Diet: AHA Activity: Fall precautions Followup: NONE,NONE [Primary Care Provider] - Time spent managing pt's care (in minutes): 25
[2022-01-12] MEDS ORDERED: levoFLOXacin 500 MG TAB PO SCH (17:00)
--- NOTE | 2022-01-12 22:12 | PN ---
Date of Progress Note: 01/12/2022 Chief Complaint: End-stage renal disease, on hemodialysis. Subjective: The patient was admitted to the hospital because of generalized weakness and altered mental status. He was found to have pneumonia. He was treated with antibiotics. Today, he is undergoing dialysis for metabolic clearance and to obtain negative fluid balance. The patient had some fluid overload related to that hyponatremia. The patient had acute respiratory failure, which was multifactorial secondary to pneumonia and fluid overload. The patient is complaining of generalized fatigue. He denies chest pain or palpitation. Objective: Lungs: Coarse breath bilaterally. Heart: S1 and S2. Abdomen: Soft. Extremities: Slight edema. Impression And Plan: 1. End-stage renal disease, continue dialysis on Wednesday, Wednesday, and Wednesday. 2. Hypertension. Blood pressure is stable during dialysis. Continue blood pressure medication. Adjust ultrafiltration goal to control fluid overload. 3. Pneumonia with sepsis. The patient was treated with antibiotics. Follow up on blood cultures. 4. Hyperkalemia, resolved. The patient responded to dialysis. Continue low- potassium diet. Continue dialysis 3 times per week. 5. Anemia of chronic kidney disease. The patient received packed red blood cell transfusion. Continue LUANNE. 6. Hyponatremia, overall improving with dialysis and p.o. fluid restriction. 7. Acute respiratory failure, multifactorial. The patient received dialysis to control fluid overload. The patient will continue antibiotics for pneumonia. 8. Diabetes mellitus. Continue insulin. 9. Renal osteodystrophy. Continue renal diet and binders. CHRISTINA/MODL Voice ID: [id number] Report ID: [id number] MANJINDER
== END 2022-01-12 13:24 | DRG 291 ==
LOC: ER 17:14 → ERHOLD 19:49 → 2ND 01-08 12:40
PROVIDERS: ADMIT Hospitalist; ATTEND Hospitalist
PROC: 5A1D70Z Performance of Urinary Filtration, Intermittent, Less than 6 Hours Per Day (ICD-10-PCS; principal; 2022-01-08)
PROC: 30233N1 Transfusion of Nonautologous Red Blood Cells into Peripheral Vein, Percutaneous Approach (ICD-10-PCS; 2022-01-08)
PROC: 5A1D70Z Performance of Urinary Filtration, Intermittent, Less than 6 Hours Per Day (ICD-10-PCS; 2022-01-10)
PROC: 5A1D70Z Performance of Urinary Filtration, Intermittent, Less than 6 Hours Per Day (ICD-10-PCS; 2022-01-12)
DX: I13.2 Hypertensive heart and chronic kidney disease with heart failure and with stage 5 chronic kidney disease, or end stage renal disease (principal); N18.6 End stage renal disease; I50.33 Acute on chronic diastolic (congestive) heart failure; J18.9 Pneumonia, unspecified organism; J96.01 Acute respiratory failure with hypoxia; A41.9 Sepsis, unspecified organism; J44.0 Chronic obstructive pulmonary disease with (acute) lower respiratory infection; E87.1 Hypo-osmolality and hyponatremia; R04.2 Hemoptysis; I24.8 Other forms of acute ischemic heart disease; E11.22 Type 2 diabetes mellitus with diabetic chronic kidney disease; E11.65 Type 2 diabetes mellitus with hyperglycemia; D63.1 Anemia in chronic kidney disease; E87.5 Hyperkalemia; I73.9 Peripheral vascular disease, unspecified; N25.0 Renal osteodystrophy; E11.40 Type 2 diabetes mellitus with diabetic neuropathy, unspecified; E11.21 Type 2 diabetes mellitus with diabetic nephropathy; Z79.4 Long term (current) use of insulin; Z99.2 Dependence on renal dialysis
CPT/HCPCS: 36415; 71045; 71250; 80048; 80053; 80061; 80076; 82550; 82553; 82947; 83735; 83880; 84100; 84145; 84484; 85014; 85018; 85025; 85610; 86850; 86900; 86901; 87040; 87804; 87811; 90935; 93005; 94010; 94640; 94760; 96365; 96375; 97116; 97161; 97530; 99285; J0456; J0713; J1644; J1815; J2250; J2930; J3370; J7040; J7050; P9016

== ENCOUNTER 2022-01-12 09:11 | Inpatient (IN) | payer OTHER, BC ==
--- NOTE | 2022-01-12 10:51 | R.PREADM ---
PRE-ADMISSION SCREENING FORM SCREENING DATE AND TIME 01/12/2022 09:24 (CDT) ANTICIPATED REHAB ADMISSION DATE 01/14/2022 REFERRING FACILITY [facility] REFERRAL DATE AND TIME 01/12/2022 09:24 (CDT) REFERRAL ROOM# 219 ACUTE ADMIT DATE 01/07/2022 Previous Rehabilitation(s): No. REFERRING PHYSICIAN Wendi Ruiz REHAB FACILITY [facility] CLINICAL LIAISON Selena Rodriguez PHYSICIAN REVIEWER Dr. Donald Velarde M.D. MR# [id number] [facility] [id number] NAME ALLIE CALVO AD[address]ESS [address] [place] [place] [address] DATE OF 1945 AGE 76 SSN# [id number] GENDER male MARITAL STATUS ADMIT FROM 02 - [facility] PRE-HOSPITAL LIVING SETTING 01 - Home (private home/apt. board/care, assisted living, retirement, transitional living) HOME TYPE AND DETAILS Type of home: single family house # of levels in the residence: 1 # of steps within the residence: 0 # of steps to enter the residence: 30 PRE-HOSPITAL LIVING WITH Family/Relatives FAMILY SUPPORT Yes PHONE PRIMARY FAMILY CONTACT ON ADM.? no IS PRIMARY FAMILY CONTACT AUTH. REP.? no PHONE 1ST CONTACT ON ADM. no IS 1ST CONTACT AUTH. REP.? no PHONE 2ND CONTACT ON ADM.? no PATIENT EMPLOYMENT STATUS Retired (for age) PATIENT EMPLOYER No Employer PAYOR INFORMATION: 1ST PAYOR NAME MEDICARE 1ST PAYOR PHONE 1ST PAYOR INJURY/ILLNESS DUE TO ACCIDENT? No ANOTHER CONSTITUTION PARTY RESPONSIBLE? 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) - Tier 3 Acute on chronic diastolic (congestive) heart failure (I50.33) - Non-Tiered Type 2 diabetes mellitus with hyperglycemia (E11.65) Anemia in chronic kidney disease (D63.1) Chronic obstructive pulmonary disease, unspecified (J44.9) Essential (primary) hypertension (I10) MCFP (current) use of insulin (Z79.4) End stage renal disease (N18.6) INTERVENTIONS: - COPD Assess/ Monitor O2 sats via Pulse Ox and administer supplemental oxygen as prescribed Administer IV medications as indicated Administer inhalation medications as indicated Assess/ Monitor for cognitive changes - Pneumnoia Administer IV antibiotics/steroids and monitor for effectiveness Administer supplemental O2 as indicated Assess/Monitor pt respiratory status Assist pt with change in position frequently to enhance secretion clearance and pulmonary ventilation and perfusion. Maintain Semi-Fowlers position to promote rest and conserve energy Maintain airway patency Promote fluid intake - Acute on chronic diastolic heart failure Administer medications as indicated by MD and monitor for effectiveness Assess/Monitor pt cardiac status Monitor pt labs daily IV diuresis - Anemia Anticipate the need for transfusion given pt hx Monitor for bleeding Monitor pt labs Treat with IV medications and LUANNE - Hypertension Assess/ Monitor patient B/P and treat with prescribed medications Increase physical activity Fluid management Assess/ Monitor patient B/P regularly - Type 2 Diabetes Assess LE for temperature, pulses, color, and sensation. Assess for signs of hyperglycemia. Monitor blood glucose and effectiveness of medications/Insulin Monitor pt BP Promote proper diet Monitor the patients [id number] hemoglobin. Weight daily. - ESRD Evaluate presence of peripheral edema, vascular congestion and reports of dyspnea. Assess presence and degree ofhypertension Inspect skin for changes in color, turgor, vascularity Inspect dependent areas for edema. Elevate legs as indicated. Assess possible risk factors Evaluate mentation for confusion and personality changes Measure urine output on a regular schedule and weigh daily HD RISK FOR COMPLICATIONS: - DVT Active and Passive ROM exercises Administer medications per MD order Assist patient with frequent position changes Elevate BLE - Skin Breakdown Encourage ambulation as tolerated Repositioning q 2 hours Use of pillows or foam wedges while in bed - CHF Assess/ Monitor pt for s/s cardiac/respiratory distress - Falls Assess for medication side effects Maintain call light within patient reach for easy access to nursing assistance Provide assistance getting out of bed and with ambulation Provide assistive devices - Stroke Assess/ Monitor and maintain patient pain level Assess/ Monitor patient blood pressure - Fluid Overload Administer prescribed diuretics Assess/ Monitor pt for s/s of fluid over load Monitor pt fluid intake - Respiratory Failure Administer supplemental O2 as needed Assess/ Monitor pt O2 sats - Cardiac Failure Assess/Monitor pt cardiac status - Bleeding Assess/ Monitor pt for injury Maintain pt safety SUMMARY OF ACUTE HOSPITALIZATION: Pt. is a 76 yo male. On 01/07/2022 he was admitted to [facility] with diagnosis J18.9 Pneumonia, unspecified or ganism. His impairment category is Pulmonary Disorders 10 - Other Pulmonary Disorders (10.9). Pre-morbidly, Pt. was independent/mod-I in Locomotion and Self-Care; and he had good Safety Awareness , Balance, Transfers Control, Endurance, and Sphincter Control. Currently, he has deficits of Locomotion, Self-Care, Endurance, Sphincter Control, Transfers Control, and Balance. Pt. is now referred to [facility] for acute in-patient rehabilitation in order to maximize patient's functional independence in activities of daily living, strength, ROM, and mobi lity. Patient has realistic goal of being discharged at assistance level 6-Kip to reside at Home with Fam macarena/Relatives. PAST MEDICAL HISTORY Acute on chronic diastolic (congestive) heart failure (I50.33) Anemia in chronic kidney disease (D63.1) Chronic obstructive pulmonary disease, unspecified (J44.9) Dependence on renal dialysis (Z99.2) End stage renal disease (N18.6) Essential (primary) hypertension (I10) MCFP (current) use of insulin (Z79.4) Type 2 diabetes mellitus with hyperglycemia (E11.65) PAST SURGICAL HISTORY: Skin graft for electrical persaud R Shoulder surgery BLE surgery L great toe amputation R LE fx with screws present on med. malleolus MEDICATION ALLERGIES: No Known Drug Allergies (NKDA) ENVIRONMENTAL ALLERGIES: - Substance Allergies None Known - Other Allergies None Known CODE STATUS: Full code WEIGHT/HEIGHT/BMI: WEIGHT 206 lbs HEIGHT 5' 10" BMI 29.6 DIET: - Diet Type Regular - Diet - Solid Texture Regular - Diet - Liquid Texture Regular - Tube Feed N/A SKIN DIAGRAM: HD catheter on Left arm; extent - small; stage - NS(Not Stageable). Treatment - Per Physician's Order s. REVIEW OF SYSTEMS: - Gen Alert and awake Lying in bed No apparent distress Oriented to: person, time, and place - Vital Signs Temperature: 98.4 F SBP/DBP: 147/70 Pulse: 96 Resp: 18 Vital signs stable, afebrile - CVS RRR VITAL SIGNS Temperature: 98.4 F SBP/DBP: 147/70 Pulse: 96 Resp: 18 Vital signs stable, afebrile 01/11/2022 MEDICATIONS/TREATMENT: Other- See attached MAR (Medication Administration Record). CURRENT SPHINCTER CONTROL: Pre-hospital bladder status: unspecified # of bladder accidents in the last 7 days prior to screenin Pre-hospital bowel status: unspecified # of bowel accidents in the last 7 days prior to screenin Last Bowel Movement Date: 01/12/2022 CURRENT LOCOMOTION STATUS: distance walked 20 feet DETAILED CURRENT FUNCTIONAL STATUS: - Bladder accident frequency: 7-Ind - No accidents in the past 7 days - Bowel accident frequency: 7-Ind - No accidents in the past 7 days - Walking score based on distance walked: 0(N/A) score based on distance walked: 1(<=50ft) - Wheelchair score based on distance traveled: 0(N/A) QI SCORES: - Self-Care A. Eating 05-Setup or clean-up assistance B. Oral hygiene 05-Setup or clean-up assistance C. Toileting hygiene 03-Partial/moderate assistance E. Shower/bathe self 03-Partial/moderate assistance F. Upper body dressing 05-Setup or clean-up assistance G. Lower body dressing 03-Partial/moderate assistance H. Putting on/taking off footwear 03-Partial/moderate assistance - Mobility A. Roll left and right 04-Supervision or touching assistance B. Sit to lying 04-Supervision or touching assistance C. Lying to sitting on side of bed 04-Supervision or touching assistance D. Sit to stand 04-Supervision or touching assistance E. Chair/kao-vp-gbahj transfer 04-Supervision or touching assistance F. Toilet transfer 04-Supervision or touching assistance G. Car transfer 88-Not attempted due to medical condition or safety concerns I. Walk 10 feet 04-Supervision or touching assistance J. Walk 50 feet with two turns 88-Not attempted due to medical condition or safety concerns K. Walk 150 feet 88-Not attempted due to medical condition or safety concerns L. Walking 10 feet on uneven surfaces 88-Not attempted due to medical condition or safety concerns M. 1 step (curb) 88-Not attempted due to medical condition or safety concerns N. 4 steps 88-Not attempted due to medical condition or safety concerns O. 12 steps 88-Not attempted due to medical condition or safety concerns P. Picking up object 88-Not attempted due to medical condition or safety concerns R. Wheel 50 feet with two turns 09-Not applicable S. Wheel 150 feet 09-Not applicable - Bladder and Bowel Bladder continence 2-Incontinent less than daily Bowel continence 3-Always incontinent - Endurance Good - Balance Good - Safety Awareness Good CURRENT FUNC. DEFICITS: Self-Care and Mobility CURRENT / PREVIOUS ASSISTIVE DEVICES: Shower Chair Wheelchair HISTORY OF FALLS. HAS THE PATIENT HAD TWO OR MORE FALLS IN THE PAST YEAR OR ANY FALL WITH INJURY IN T HE PAST YEAR?: No PRIOR SURGERY. DID THE PATIENT HAVE MAJOR SURGERY DURING THE 100 DAYS PRIOR TO ADMISSION?: Yes THERAPY NOTES FROM ACUTE CARE: Attached. SPECIAL NEEDS: - Safety Concerns Skin breakdown, Fall, and Weight Bearing precautions needed due to skin breakdown risk, Poor balance, and Risk of injury - Respiratory Supplemental oxygen: 2 liters Nasal [place] - Dialysis Dialysis TBD PRECAUTIONS: - Fall Precaution Bed alarm TABS alarm Wheel chair alarm - Incontinence Bowel Incontinence - DVT Risk due to restricted mobility and age - Skin Breakdown Risk due to restricted mobility and age - Weight Bearing Precaution WBAT left LE PATIENT NEEDS ACTIVE AND ONGOING THERAPEUTIC INTERVENTION OF MULTIPLE THERAPY DISCIPLINES, INCLUDING: - Dietary and Nutrition Adequate Nutrition. Nutritional Education. Nutritional Supplements. - Occupational Therapy Cognitive Retraining. Patient needs Occupational Therapy for a daily minimum of 1.5 hours at least 5 out of 7 days, to improve Activities of Daily Living, including: Eating, Grooming, Bathing, Dressing, Toileting, Toilet Transfers, Community Reintegration, Higher functional activities, Adaptive Equipme nt, Splinting, Household Tasks, and Other activities as determined. Visual Perceptual Training. - Physical Therapy Patient needs Physical Therapy for a daily minimum of 1.5 hours at least 5 out of 7 days, to improve: Mobility, Strengthening, Transfers, Stretching, ROM, Endurance, Ability to manage stairs, Gait, and Balance. PATIENT NEEDS CLOSE MEDICAL SUPERVISION BY A REHABILITATION PHYSICIAN FOR: Coordination of Treatment Team Diabetes Management Medical and Co-Morbidity Management Respiratory/Airway Management Wound Care Bowel and Bladder Management PATIENT REQUIRES 24X7 REHAB NURSING FOR MEDICAL AND FUNCTIONAL MGT. OF THE FOLLOWING DEFICITS: Patient requires 24x7 Rehabilitation Nursing for: Pain Issues, Identifying and preventing risk factor s, Monitoring and reporting current medical conditions, Assisting with ambulation and transfer, Christiano ting with all ADL-s, Teaching patients about disease process and medications, Family teaching, Provid ing safe environment, Bowel and Bladder Issues, Skin Integrity, and Medication Management PATIENT REQUIRES INTENSIVE, COORDINATED INTERDISCIPLINARY APPROACH TO REHAB: Patient needs Dietary and Nutrition Services for: Adequate Nutrition, Nutritional Supplements, and Nu tritional Education Patient needs Apprentice Architect and/or Case Management for: Discharge Planning, Arranging Home Equipmen t or Services, and Family Interventions PATIENT REHAB POTENTIAL: Fam CALVO is able and expected to receive 3 hours of individualized therapy daily on at least 5 of e very 7 days Fam CALVO'megha prognosis for significant practical improvement within a reasonable period of time appea rs Good Expected level of measurable improvement will be of a practical value to Fam CALVO's functional capa city or adaptations to impairments Has a viable Discharge Plan Medically appropriate; condition is sufficiently stable to participate in intensive rehab program DISCHARGE PLAN: - Estimated Length of Stay (days) 11. - Consensus on plan Discharge plan has been discussed with primary caregiver. Patient/Family is in agreement with the tali n. Primary caregiver is in agreement with the plan. - Patient/Family Goals Return home independently. - Planned Living Setting Upon Discharge Home, to live with Family/Relatives. Transitional Living. RECOMMENDED CARE LEVEL: IRF RECOMMENDATION DETAILS: Recommended Admission to Comprehensive Rehabilitation Program to Increase Functional [place] SCREENER'S COMPLETENESS CONFIRMATION: - Screening Confirmation The patient data collection on this preadmission screening form is finished PHYSICIANS REVIEW AND ADMISSION DETERMINATION Admit - Based on my review of the Pre-Admission Screening results, in my medical judgment and experie nce, I concur with the findings and recommend admission to [facility], as this patient requires an IRF level of care. SIGNATURE PANEL: Clinical Liaison - [electronically] signed by Selena Rodriguez on 01/12/2022 at 10:34 (CDT) Physician Reviewer - [electronically] signed by Dr. Donald Velarde M.D. on 01/12/2022 at 10:50 (CDT )
--- OUTSIDE RECORDS SUMMARY | 2022-01-12 13:56 | XMS REPORT | Continuity of Care Document ---
:[address] [facility] t Address [address] [place] [address] Care Team Providers Name Role Phone Naveed Fortune Attending Clinician Unavailable [id number] Attending Clinician Unavailable CAREY LONG Attending Clinician Unavailable CAMELIA MANCILLA Attending Clinician Unavailable RONNIE WHITNEY Attending Clinician Unavailable MONSE VELAZQUEZ Attending Clinician Unavailable CHILANGO ARMSTRONG NATASHA Attending Clinician Unavailable [id number] Admitting Clinician Unavailable CAMELIA MANCILLA Admitting Clinician Unavailable MONSE VELAZQUEZ Admitting Clinician Unavailable CHILANGO ARMSTRONG NATASHA Admitting Clinician Unavailable Payers Payer Name Policy Type Policy Number Effective Date Expiration Date S kristin MEDICARE PART A [id number] 2011 AND B 00:00:00 [facility] [id number] BCTX BCTI [id number] Problems This patient has no known problems. Allergies, Adverse Reactions, Alerts This patient has no known allergies or adverse reactions. Medications Ordered Filled Start Stop Current Ordering Indication Dosage Frequency Signature Comments Components Source Medication Medication Date Date Medication? Clinician (SIG) Name Name Advair HFA Advair HFA 2019-0 Yes Naveed 2 puffs Common 1-15 [facility] 00:00: - [facility] 00 [facility] BD BD 2018-05 Yes Naveed 1 needle Common Ultra-Fine Ultra-Fine 0-09 Fortune with Sp jerome Christina Pen Christina Pen 00:00: [facility] Bly Bly 00 [facility] Tums E-X Tums E-X Yes Naveed 1 tablet C ommon 750 750 Fortune [facility] Basaglar Allyssaaglar Yes Naveed 52 Units C ommon KwikPen KwikPen Fortune [facility] PreserVisio PreserVisio Yes Naveed as Common n AREDS n AREDS Fortune directed [facility] Citalopram Citalopram Yes Naveed 1 tablet Common Hydrobromid Hydrobromid [facility] Stool Stool Yes Naveed not Common Softener Softener Fortune defined [facility] Gentle Gentle Yes Naveed 1 tablet Commo n Laxative Laxative Fortune as needed S pirit [facility] Atorvasta Atorvastati Yes Naveed 1 tablet Common n Calcium n Calcium Fortune [facility] Contour Contour Yes Naveed USE 3 Common Test Test Fortune TIMES A [facility] Eliquis 2.5 Eliquis 2.5 Yes Naveed 1 tablet Common mg mg Fortune [facility] Multivitami Multivitami Yes Naveed as Common n Adult n Adult Fortune directed [facility] Carvedilol Carvedilol Yes Naveed TAKE 1 Common Fortune TABLET BY Spirit MOUTH - [facility] TWICE A St DAY ON NON [facility] DIALYSIS Medical DAYS Center Atorvastati Atorvastati Yes Naveed TAKE 1 Common n Calcium n Calcium Fortune TABLET BY [facility] MOUTH - [facility] EVERY DAY [facility] GlipiZIDE GlipiZIDE Yes Naveed 1 tablet Common Fortune [facility] Basaglar Steviear Yes Naveed 50 Units C ommon KwikPen KwikPen Fortune [facility] Procedures Procedure Date / Time Performed Performing Clinician [facility] azeb [id number] 2021-10-18 00:00:00 ENCPL Encounters Start End Encounter Admission Attending Care Care Encounter Source Date/Time Date/Time Type Type Clinicians Facility Department ID 2022-01-01 Outpatient Fortune, STLMLC STLMLC [id number] Common 10:24:01 Naveed [facility] 2021-12-29 Outpatient Fortune, STLMLC STLMLC [id number] Common 08:34:00 Naveed [facility] 2021-12-16 Outpatient [facility] [id number] MD 14:42:21 [id number] [facility] 2021-11-19 Outpatient Fortune, STLMLC STLMLC [id number] Common 08:42:01 Naveed [facility] 2021-11-03 Outpatient Fortune, STLMLC STLMLC [id number] Common 10:33:01 Naveed [facility] 2021-10-15 Outpatient 3 [id number] ENCPL REF [id number] ENCPL 08:19:25 052021-10-14 Outpatient 3 [id number] ENCPL REF [id number] ENCPL 11:59:03 17 2021-06-25 Outpatient Fortune, STLMLC STLMLC [id number] Common 14:22:06 Naveed [id number] [facility] 2021-06-25 Outpatient Fortune, STLMLC STLMLC [id number] Common 14:13:51 Naveed [id number] [facility] 2021-06-25 Outpatient Fortune, STLMLC STLMLC [id number] Common 13:38:12 Naveed [id number] [facility] 2021-06-25 Outpatient Fortune, STLMLC STLMLC [id number] Common 12:43:29 Naveed [id number] [facility] 2021-06-25 Outpatient Fortune, STLMLC STLMLC [id number] Common 12:42:27 Naveed [id number] [facility] 2021-06-25 Outpatient Fortune, STLMLC STLMLC [id number] Common 12:31:12 Naveed [id number] [facility] 2021-06-25 Outpatient Fortune, STLMLC STLMLC [id number] Common 12:31:03 Naveed [id number] [facility] 2021-06-25 Outpatient Fortune, STLMLC STLMLC [id number] Common 12:30:21 Naveed [id number] [facility] 2021-06-25 Outpatient Fortune, STLMLC STLMLC [id number] Common 11:00:43 Naveed [id number] [facility] 2022-01-06 2022-01-06 ambulatory STLMLC STLMLC [id number] Common 00:00:00 00:00:00 [facility] 2022-01-02 2022-01-02 Emergency E LONG, BL MHBL [id number] MHBL 12:12:00 16:33:00 CAREY 2022-01-01 2022-01-01 ambulatory STLMLC STLMLC [id number] Common 00:00:00 00:00:00 [facility] 2021-12-31 2021-12-31 ambulatory STLMLC STLMLC [id number] Common 00:00:00 00:00:00 [facility] 2021-12-14 2021-12-16 Inpatient E SAJJA, BL MED [id number] MHBL 18:26:00 22:14:00 CAMELIA 2021-12-03 2021-12-04 Emergency E FADOWOLE, BL MHBL [id number] MHBL 18:19:00 09:53:00 RONNIE 2021-11-25 2021-11-26 Outpatient E CAROLINE, MHBL MED [id number] MHBL 10:37:00 19:12:00 MONSE 2021-11-24 2021-11-24 ambulatory STLMLC STLMLC [id number] Common 00:00:00 00:00:00 [facility] 2021-10-16 2021-11-03 Inpatient 3 NATHANIEL, ENCPL GILDA [id number] ENCPL 23:26:00 21:40:00 CHILANGO 0519 2021-11-03 2021-11-03 ambulatory STLMLC STLMLC [id number] Common 00:00:00 00:00:00 [facility] 2021-10-17 2021-10-17 ambulatory STLMLC STLMLC [id number] Common 00:00:00 00:00:00 [facility] 2021-08-12 2021-08-12 ambulatory STLMLC STLMLC [id number] Common 00:00:00 00:00:00 [facility] 2021-07-28 2021-07-28 ambulatory STLMLC STLMLC [id number] Common 00:00:00 00:00:00 [facility] 2021-07-28 2021-07-28 ambulatory STLMLC STLMLC [id number] Common 00:00:00 00:00:00 [facility] 2021-06-12 2021-06-12 ambulatory STLMLC STLMLC [id number] Common 00:00:00 00:00:00 [facility] 2021-05-21 2021-05-21 ambulatory STLMLC STLMLC [id number] Common 00:00:00 00:00:00 [facility] 2021-04-28 2021-04-28 ambulatory STLMLC STLMLC [id number] Common 00:00:00 00:00:00 [facility] 2021-03-26 2021-03-26 Outpatient STLMLC STLMLC [id number] Common 00:00:00 00:00:00 [facility] 2021-03-12 2021-03-12 Outpatient STLMLC STLMLC [id number] Common 00:00:00 00:00:00 [facility] 2021-02-10 2021-02-10 Outpatient STLMLC STLMLC [id number] Common 00:00:00 00:00:00 [facility] 2021-01-31 2021-01-31 Outpatient STLMLC STLMLC [id number] Common 00:00:00 00:00:00 [facility] 2021-01-13 2021-01-13 Outpatient STLMLC STLMLC [id number] Common 00:00:00 00:00:00 [facility] 2021-01-08 2021-01-08 Outpatient STLMLC STLMLC [id number] Common 00:00:00 00:00:00 [facility] 2020-12-31 2020-12-31 Outpatient STLMLC STLMLC [id number] Common 00:00:00 00:00:00 [facility] 2020-12-11 2020-12-11 Outpatient STLMLC STLMLC [id number] Common 00:00:00 00:00:00 [facility] 2020-08-19 2020-08-19 Outpatient STLMLC STLMLC [id number] Common 00:00:00 00:00:00 [facility] 2020-07-19 2020-07-19 Outpatient STLMLC STLMLC [id number] Common 00:00:00 00:00:00 [facility] 2020-07-15 2020-07-15 Outpatient STLMLC STLMLC [id number] Common 00:00:00 00:00:00 [facility] 2020-06-14 2020-06-14 Outpatient STLMLC STLMLC [id number] Common 00:00:00 00:00:00 [facility] 2020-06-05 2020-06-05 Outpatient STLMLC STLMLC [id number] Common 00:00:00 00:00:00 [facility] 2020-04-23 2020-04-23 Outpatient STLMLC STLMLC [id number] Common 00:00:00 00:00:00 [facility] 2020-04-22 2020-04-22 Outpatient STLMLC STLMLC [id number] Common 00:00:00 00:00:00 [facility] 2020-04-17 2020-04-17 Outpatient STLMLC STLMLC [id number] Common 00:00:00 00:00:00 [facility] 2020-01-15 2020-01-15 [facility] [id number] Common 10:45:00 10:45:[address] [facility] 2019-10-16 2019-10-16 [facility] [id number] Common 13:00:00 13:00:[address] [facility] 2019-07-17 2019-07-17 [facility] [id number] Common 13:45:00 13:45:[address] [place] [address] [facility] 2019-06-14 2019-06-14 [facility] [id number] Common 11:45:00 11:45:00 [place] [address] [facility] 2019-06-07 2019-06-07 [facility] [id number] Common 11:57:00 11:57:00 [place] [address] [facility] 2019-05-17 2019-05-17 [facility] [id number] Common 11:30:00 11:30:00 [place] [address] [facility] 2019-04-24 2019-04-24 [facility] [id number] Common 14:52:00 14:52:00 [place] [address] [facility] 2019-04-19 2019-04-19 [facility] [id number] Common 14:45:00 14:45:[address] [place] [address] [facility] 2019-04-06 2019-04-06 [facility] [id number] Common 08:35:00 08:35:00 [address] [place] [address] [facility] 2019-04-04 2019-04-04 [facility] [id number] Common 08:34:00 08:34:00 [address] [place] [address] [facility] 2019-03-08 2019-03-08 [facility] [id number] Common 10:57:00 10:57:[address] [place] [address] [facility] 2019-02-20 2019-02-20 [facility] [id number] Common 14:00:00 14:00:[address] [place] [address] [facility] Results This patient has no known results.
[2022-01-12] MEDS ORDERED: MELATONIN 3 MG TABLET PO PRN (14:18)
[2022-01-12] MEDS ORDERED: DOCUSATE NA/SENNA CONC 1 TAB PO PRN (14:18)
[2022-01-12] MEDS ORDERED: GLUCAGON 1 MG/VIAL IM PRN (14:47)
[2022-01-12] MEDS ORDERED: ACETAMINOPHEN 500 MG TAB PO PRN (14:50)
[2022-01-12] MEDS ORDERED: ALBUTEROL 2.5 MG/3 ML NEB SOL NEB PRN (14:51)
[2022-01-12] MEDS ORDERED: D10W 250 ML BAG IV PRN (15:21)
[2022-01-12] MEDS: INSULIN -REGULAR HUMAN 50 UNIT/0.5 ML ML SQ SCH ×2 (17:07→20:13)
[2022-01-12] MEDS: levoFLOXacin 500 MG TAB PO SCH (17:08)
[2022-01-12] MEDS: ATORVASTATIN 40 MG TAB PO SCH (20:13)
[2022-01-12] MEDS: HEPARIN 5000 UNIT/ML 1 ML VIAL SQ SCH (20:14)
[2022-01-12] MEDS: DOXYCYCLINE 100 MG CAP PO SCH (20:14)
[2022-01-12] MEDS ORDERED: ATORVASTATIN 20 MG TAB PO SCH (21:00)
[2022-01-13 04:31] LABS: Absolute Lymphocytes (CBC) 0.9 K/uL (0.7-4.9); Hematocrit 24.3 % (39.6-49.0); Lymphocytes % 12.6 % (15.3-44.8); MCV 99.4 fL (80-100); MPV 8.3 fL (7.6-11.3); RBC Red Blood Cell Count 2.45 M/uL (4.33-5.43)
[2022-01-13 04:48] LABS: Albumin 2.3 g/dL (3.4-5.0); Magnesium 2.1 mg/dL (1.8-2.4); Potassium 4.1 mmol/L (3.5-5.1)
[2022-01-13 05:13] LABS: Anisocytosis 3+; Blood Morphology Comment NOTED (NOT SEEN); Platelet Estimate ADEQ; Polychromasia 1+; White Blood Cell Scan OK (OK)
[2022-01-13] MEDS: HEPARIN 5000 UNIT/ML 1 ML VIAL SQ SCH ×2 (07:10→20:06)
[2022-01-13] MEDS: PANTOPRAZOLE 40MG TABLET PO SCH (07:12)
[2022-01-13] MEDS: INSULIN -REGULAR HUMAN 50 UNIT/0.5 ML ML SQ SCH ×4 (07:26→20:06)
[2022-01-13] MEDS: ASPIRIN EC 81 MG TAB PO SCH (07:27)
[2022-01-13] MEDS: INSULIN GLARGINE 100 UNIT/ML SQ SCH (07:27)
[2022-01-13] MEDS: carvediloL 12.5 MG TAB PO SCH (07:28)
[2022-01-13] MEDS: BISACODYL E.C. 5 MG TAB PO SCH (07:28)
[2022-01-13] MEDS: DOXYCYCLINE 100 MG CAP PO SCH ×2 (07:28→20:05)
[2022-01-13] MEDS: CITALOPRAM 10 MG TABLET PO SCH (07:28)
[2022-01-13] MEDS: [UNRECOGNIZED DRUG - OTHER] PO SCH (07:29)
[2022-01-13 07:45] VITALS: BMI 26.7
[2022-01-13] MEDS ORDERED: MULTIVIT W/ MINERAL TAB PO SCH (08:00)
[2022-01-13] MEDS: OCUVITE (VIT A,C & E/LUTEIN/MINERAL) TABLET PO SCH (11:51)
[2022-01-13] MEDS: MULTIVIT W/ MINERAL TAB PO SCH (11:51)
[2022-01-13 11:52] LABS: Prealbumin 11.2 mg/dL (20-40)
[2022-01-13] MEDS: NYSTATIN PWDR 100000 UNIT/GM TOP SCH ×2 (13:05→20:05)
[2022-01-13] MEDS: LIDOCAINE 4% PATCH TOP SCH (13:50)
--- NOTE | 2022-01-13 15:21 | R.HP ---
HISTORY AND PHYSICAL FACILITY: [facility] ENCOUNTER DATE AND TIME: 01/13/2022 15:17 (CDT) MR#: [id number] NAME ALLIE CALVO ADDRESS: [address] [place] [address]: [place]IP [phone] PHONE: DATE OF : 1945 AGE: 76 SSN# [id number] GENDER: Male DEXTERITY Unknown dexterity MARITAL STATUS PRE-HOSPITAL LIVING SETTING 01 - Home (private home/apt. board/care, assisted living, retirement, transitional living) PRE-HOSPITAL LIVING WITH Family/Relatives ENCOUNTER PHYSICIAN: Dr. Donald Velarde M.D. REFERRING DOCTOR: milton Ruiz DATE OF ADMISSION: 01/12/2022 13:51 (CDT) REFERRING FACILITY [facility] HOME TYPE AND DETAILS: Type of home: single family house # of levels in the residence: 1 # of steps within the residence: 0 # of steps to enter the residence: 30 ONSET DATE: 01/07/2022 PRIMARY DIAGNOSIS-RELATED SURGERIES: None SECONDARY/COMORBID DIAGNOSES (TIERED): - Tier 1 Dependence on renal dialysis (Z99.2) - Tier 3 Acute on chronic diastolic (congestive) heart failure (I50.33) - Non-Tiered Type 2 diabetes mellitus with hyperglycemia (E11.65) Anemia in chronic kidney disease (D63.1) Chronic obstructive pulmonary disease, unspecified (J44.9) Essential (primary) hypertension (I10) 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 is a 76 yo male. On 01/07/2022 he was admitted to [facility] with diagnosis J18.9 Pneumonia, unspecified or ganism. His impairment category is Pulmonary Disorders 10 - Other Pulmonary Disorders (10.9). Pre-morbidly, Pt. was independent/mod-I in Locomotion and Self-Care; and he had good Safety Awareness , Balance, Transfers Control, Endurance, and Sphincter Control. Currently, he has deficits of Locomotion, Self-Care, Endurance, Sphincter Control, Transfers Control, and Balance. Pt. is now referred to [facility] for acute in-patient rehabilitation in order to maximize patient's functional independence in activities of daily living, strength, ROM, and mobi lity. Patient has realistic goal of being discharged at assistance level 6-Kip to reside at Home with Fam macarena/Relatives. 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 malleolus SOCIAL HISTORY: - Home Living Family/Relatives REVIEW OF SYSTEMS: - Gen No Chills Fatigue No Fever - Eyes No Double Vision No itchiness - ENMT No Difficulty Swallowing - CVS No Chest Discomfort No Chest Pain Fatigue No Weight Gain - Resp No Cough Shortness of Breath - GI Continent No Abdominal Pain No Constipation No Diarrhea - Continent No Kidney Pain No Painful Urination No Urinary Urgency - MSK Joint Pain Muscle Cramps Stiffness - Skin No Itching No Rash No Suspicious Lesions - Neuro Coordination Difficulty Difficulty with Concentration Memory Loss No Seizures Weakness - Psych No Anxiety No Depression No HIV Exposure No Persistent Infections No Seasonal Allergies - Endo No Cold/Heat Intolerance No Excessive Hunger No Excessive Thirst No Excessive Urination PHYSICAL EXAM - Gen Alert and awake Lying in bed No apparent distress Oriented to: person, time, and place - Skin No skin breakdown. No abnormalities - Eyes No abnormalities - ENMT No abnormalities - Neck No abnormalities - CVS RRR - Chest No abnormalities - Resp Clear to auscultation - Abd + bowel sounds - GI Soft Deferred - No abnormalities - Ext Mild bilateral lower extremity edema. - MSK 4/5 weakness in both lower extremities. - Neuro No focal deficits - Psych No abnormalities VITAL SIGNS Temperature: 98.4 F SBP/DBP: 126/61 Pulse: 95 to 102 Resp: 16 NURSING: - Shower allowing shower - Lab Results blood Sugar Check ACHS PRECAUTIONS: - Fall Precaution Bed alarm TABS alarm Wheel chair alarm - Incontinence Bowel Incontinence - DVT Risk due to restricted mobility and age - Skin Breakdown Risk due to restricted mobility and age - Weight Bearing Precaution WBAT left LE ACTIVITIES OOB only with supervision QI SCORES: - Self-Care A. Eating 05-Setup or clean-up assistance B. Oral hygiene 05-Setup or clean-up assistance C. Toileting hygiene 03-Partial/moderate assistance E. Shower/bathe self 03-Partial/moderate assistance F. Upper body dressing 05-Setup or clean-up assistance G. Lower body dressing 03-Partial/moderate assistance H. Putting on/taking off footwear 03-Partial/moderate assistance - Mobility A. Roll left and right 04-Supervision or touching assistance B. Sit to lying 04-Supervision or touching assistance C. Lying to sitting on side of bed 04-Supervision or touching assistance D. Sit to stand 04-Supervision or touching assistance E. Chair/bui-ud-kxkag transfer 04-Supervision or touching assistance F. Toilet transfer 04-Supervision or touching assistance G. Car transfer 88-Not attempted due to medical condition or safety concerns I. Walk 10 feet 04-Supervision or touching assistance J. Walk 50 feet with two turns 88-Not attempted due to medical condition or safety concerns K. Walk 150 feet 88-Not attempted due to medical condition or safety concerns L. Walking 10 feet on uneven surfaces 88-Not attempted due to medical condition or safety concerns M. 1 step (curb) 88-Not attempted due to medical condition or safety concerns N. 4 steps 88-Not attempted due to medical condition or safety concerns O. 12 steps 88-Not attempted due to medical condition or safety concerns P. Picking up object 88-Not attempted due to medical condition or safety concerns R. Wheel 50 feet with two turns 09-Not applicable S. Wheel 150 feet 09-Not applicable - Bladder and Bowel Bladder continence 2-Incontinent less than daily Bowel continence 3-Always incontinent - Endurance Good - Balance Good - Safety Awareness Good CURRENT FUNC. DEFICITS: Self-Care and Mobility MEDICATIONS: - Other See attached MAR (Medication Administration Record) ASSESSMENT: Pt. is a 76 yo male.On 01/07/2022 he was admitted to [facility] with diagnosis J1 8.9 Pneumonia, unspecified organism.His impairment category is Pulmonary Disorders 10 - Other Pulmon renate Disorders (10.9).Pre-morbidly, Pt. was independent/mod-I in Locomotion and Self-Care; and he had good Safety Awareness, Balance, Transfers Control, Endurance, and Sphincter Control.Currently, he has deficits of Locomotion, Self-Care, Endurance, Sphincter Control, Transfers Control, and Balance.Pt. is now referred to [facility] for acute in-patient rehabilitation in order to maximize patient's functional independence in activities of daily living, strength, ROM, and mobility .- Rehab Goal Patient has realistic goal of being discharged at assistance level 6-Kip to reside at Home with Fam macarena/Relatives. - Physical Therapy Inability to transfer - to improve, our physical therapists will perform initial evaluation of pt's s tatus upon admission and devise an individualized program for Bed mobility Need for home safety evaluation - to improve, our physical therapists will perform initial evaluation of pt's status upon admission and devise an individualized program for Home Evaluation Need in caregiver upon discharge - to improve, our physical therapists will perform initial evaluatio n of pt's status upon admission and devise an individualized program for Caregiver Training New precaution - to improve, our physical therapists will perform initial evaluation of pt's status u keara admission and devise an individualized program for Patient precaution education Edema - to improve, our physical therapists will perform initial evaluation of pt's status upon admi ssion and devise an individualized program for Elevation Training, and Lymphedema Therapy Poor balance - to improve, our physical therapists will perform initial evaluation of pt's status upo n admission and devise an individualized program for Balance Training Poor endurance - to improve, our physical therapists will perform initial evaluation of pt's status u keara admission and devise an individualized program for Endurance Training Achieving independence - to improve, our physical therapists will perform initial evaluation of pt's status upon admission and devise an individualized program for Community Reintegration Activities - Occupational Therapy ADL deficits - to improve, our occupation therapists will perform initial evaluation of pt's status u keara admission and devise an individualized program for Bathing, Bed mobility, Community Reintegration , Cooking, Dressing, Eating, Fine Motor Skills, Grooming, Homemaking, Kitchen Mobility, Laundry, Nicolle ent Education, Safety Awareness, Splinting - Positioning, Transfers(Toilet, Tub, Shower), and Wheel C hair Management Need for rn urgent care - to improve, our occupation therapists will perform initial evaluation of pt's s tatus upon admission and devise an individualized program for Caregiver Training MEDICAL PLAN: - Diet Type Start Regular - Diet - Liquid Texture Start Regular - Tube Feed Start N/A - Incontinence Bowel Incontinence - Lab Results blood Sugar Check ACHS - DVT Risk due to restricted mobility and age - Skin Breakdown Risk due to restricted mobility and age - Weight Bearing Precaution WBAT left LE - Fall Precaution Bed alarm TABS alarm Wheel chair alarm - Other See attached MAR (Medication Administration Record) - Diet - Solid Texture Regular - Shower shower DISCHARGE PLAN: - Estimated Length of Stay (days) 11. - Consensus on plan Discharge plan has been discussed with primary caregiver. Patient/Family is in agreement with the tali n. Primary caregiver is in agreement with the plan. - Patient/Family Goals Return home independently. - Planned Living Setting Upon Discharge Home, to live with Family/Relatives. Transitional Living. SIGNATURE PANEL: (CDT)
--- NOTE | 2022-01-13 15:22 | PAPE ---
POST ADMISSION PHYSICIAN EVALUATION PATIENT: [facility] MR# [id number] REFERRING DOCTOR milton Ruiz EVALUATION DATE AND TIME 01/13/2022 15:21 (CDT) NAME ALLIE CALVO DATE OF 1945 AGE 76 PHONE SSN# [id number] GENDER male EVALUATING PHYSICIAN Dr. Donald Velarde M.D. ADMISSION DIAGNOSIS: J18.9 Pneumonia, unspecified organism ONSET DATE 01/07/2022 SECONDARY/COMORBID DIAGNOSES TIERED: - Tier 1 Dependence on renal dialysis (Z99.2) - Tier 3 Acute on chronic diastolic (congestive) heart failure (I50.33) - Non-Tiered Type 2 diabetes mellitus with hyperglycemia (E11.65) Anemia in chronic kidney disease (D63.1) Chronic obstructive pulmonary disease, unspecified (J44.9) Essential (primary) hypertension (I10) intermediate frame tender (current) use of insulin (Z79.4) End stage renal disease (N18.6) POST-ADMISSION FUNCTIONAL/MEDICAL STATUS: - Bladder Same accident frequency: 7-Ind - No accidents in the past 7 days - Bowel Same accident frequency: 7-Ind - No accidents in the past 7 days - Walking Same score based on distance walked: 0(N/A) Same score based on distance walked: 1(<=50ft) - Wheelchair Same score based on distance traveled: 0(N/A) STATUS CHANGE EVALUATION: No change in Functional or Medical Status is identified compared with Pre-Admission screening. PATIENT NEEDS CLOSE MEDICAL SUPERVISION BY A REHABILITATION PHYSICIAN FOR: Coordination of Treatment Team Diabetes Management Medical and Co-Morbidity Management Respiratory/Airway Management Wound Care Bowel and Bladder Management PATIENT REQUIRES 24X7 REHAB NURSING FOR MEDICAL AND FUNCTIONAL MGT. OF THE FOLLOWING DEFICITS: Patient requires 24x7 Rehabilitation Nursing for: Pain Issues, Identifying and preventing risk factor s, Monitoring and reporting current medical conditions, Assisting with ambulation and transfer, Christiano ting with all ADL-s, Teaching patients about disease process and medications, Family teaching, Provid ing safe environment, Bowel and Bladder Issues, Skin Integrity, and Medication Management PATIENT REQUIRES INTENSIVE, COORDINATED INTERDISCIPLINARY APPROACH TO REHAB: Patient needs Dietary and Nutrition Services for: Adequate Nutrition, Nutritional Supplements, and Nu tritional Education Patient needs Surgery Center Administrator and/or Case Management for: Discharge Planning, Arranging Home Equipmen t or Services, and Family Interventions LIST OF IDENTIFIED AND POTENTIAL PROBLEMS: Alteration in air exchange Alteration in leisure activities Bladder, Incontinence Blood Pressure, Hypertension/hypotension Issues Bowel, Incontinence Diabetes, Hyperglycemia/hypoglycemia Issues Falls, Actual or Potential Infection, Actual or Potential Mobility Impaired Pain, Alteration in Comfort Self Care Deficit Skin Integrity, Actual or Potential Urinary Tract Infection (UTI), Actual or Potential RISK FOR COMPLICATIONS - DVT Active and Passive ROM exercises. Administer medications per MD order. Assist patient with frequent p osition changes. Elevate BLE. - Skin Breakdown Encourage ambulation as tolerated. Repositioning q 2 hours. Use of pillows or foam wedges while in be d. - CHF Assess/ Monitor pt for s/s cardiac/respiratory distress. - Falls Assess for medication side effects. Maintain call light within patient reach for easy access to SingOn ng assistance. Provide assistance getting out of bed and with ambulation. Provide assistive devices. - Stroke Assess/ Monitor and maintain patient pain level. Assess/ Monitor patient blood pressure. - Fluid Overload Administer prescribed diuretics. Assess/ Monitor pt for s/s of fluid over load. Monitor pt fluid inta ke. - Respiratory Failure Administer supplemental O2 as needed. Assess/ Monitor pt O2 sats. - Cardiac Failure Assess/Monitor pt cardiac status. - Bleeding Assess/ Monitor pt for injury. Maintain pt safety. INTERVENTIONS - COPD Assess/ Monitor O2 sats via Pulse Ox and administer supplemental oxygen as prescribed. Administer IV medications as indicated. Administer inhalation medications as indicated. Assess/ Monitor for cogniti ve changes. - Pneumnoia Administer IV antibiotics/steroids and monitor for effectiveness. Administer supplemental O2 as indic ated. Assess/Monitor pt respiratory status. Assist pt with change in position frequently to enhance s ecretion clearance and pulmonary ventilation and perfusion. Maintain Semi-Fowlers position to prom ote rest and conserve energy. Maintain airway patency. Promote fluid intake. - Acute on chronic diastolic heart failure Administer medications as indicated by MD and monitor for effectiveness. Assess/Monitor pt cardiac st atus. Monitor pt labs daily. IV diuresis. - Anemia Anticipate the need for transfusion given pt hx. Monitor for bleeding. Monitor pt labs. Treat with IV medications and LUANNE. - Hypertension - Type 2 Diabetes Assess LE for temperature, pulses, color, and sensation. Assess for signs of hyperglycemia. Monitor b lood glucose and effectiveness of medications/Insulin. Monitor pt BP. Promote proper diet. Monitor th e patients [id number] hemoglobin. Weight daily. - ESRD Evaluate presence of peripheral edema, vascular congestion and reports of dyspnea. Assess presence an d degree ofhypertension. Inspect skin for changes in color, turgor, vascularity. Inspect dependent areas for edema. Elevate legs as indicated. Assess possible risk factors. Evaluate mentation for conf usion and personality changes. Measure urine output on a regular schedule and weigh daily. HD. PATIENT COULD BE AT RISK FOR COMPLICATIONS FROM ADVERSE MEDICAL CONDITIONS DUE TO HIS/HER COMORBIDITI ES AND THE RIGORS OF THE INTENSIVE REHABILLITATION PROGRAM. METHODS OR INTERVENTIONS TO AVOID COMPLIC ATIONS INCLUDE: - Bleeding Assess lab values and manage abnormalities. Nursing to teach precautions for anti-coagulation therapy . Wound to be assessed every shift. - Infection Clinical staff to assess and manage the signs and symptoms of infection including fever, redness, war mth, etc. - Urinary Tract Infection - Falls Patient will be evaluated for Fall Precautions and will be placed on Fall Precautions as indicated pe r protocol. - Skin Breakdown Nursing will assess skin daily using assessment tool and will place on Skin Breakdown Precautions as indicated per protocol. - Pain Clinical staff may employ non-medication methods such as massage, distraction, decrease stimulus, etc . as needed. Clinical staff will assess patient's pain level every shift per protocol to assess and e nsure pain management effectiveness. Medications will be given and the pain level re-assessed. PRELIMINARY PLAN OF CARE: - Physical Therapy Patient needs Physical Therapy for a daily minimum of 1.5 hours at least 5 out of 7 days, to improve: Mobility, Strengthening, Transfers, Stretching, ROM, Endurance, Ability to manage stairs, Gait, and Balance. - Speech Therapy Patient needs Speech Therapy for a daily minimum of 0.5 hours at least 5 out of 7 days, to improve: S wallowing, Cognition, Language Skills, and Compensatory Strategies. - Rehabilitation Nursing Patient requires 24x7 Rehabilitation Nursing for: Pain Issues, Identifying and preventing risk factor s, Monitoring and reporting current medical conditions, Assisting with ambulation and transfer, Christiano ting with all ADL-s, Teaching patients about disease process and medications, Family teaching, Provid ing safe environment, Bowel and Bladder Issues, Skin Integrity, and Medication Management. Patient needs Surgery Center Administrator and/or Case Management for: Discharge Planning, Arranging Home Equipmen t or Services, and Family Interventions. - Dietary and Nutrition Services Patient needs Dietary and Nutrition Services for: Adequate Nutrition, Nutritional Supplements, and Nu tritional Education. - Occupational Therapy Patient needs Occupational Therapy for a daily minimum of 1.5 hours at least 5 out of 7 days, to impr ove Activities of Daily Living, including: Eating, Grooming, Bathing, Dressing, Toileting, Toilet Tra nsfers, Community Reintegration, Higher functional activities, Adaptive Equipment, Splinting, Househo ld Tasks, and Other activities as determined. QI SCORES: - Self-Care A. Eating 05-Setup or clean-up assistance B. Oral hygiene 05-Setup or clean-up assistance C. Toileting hygiene 03-Partial/moderate assistance E. Shower/bathe self 03-Partial/moderate assistance F. Upper body dressing 05-Setup or clean-up assistance G. Lower body dressing 03-Partial/moderate assistance H. Putting on/taking off footwear 03-Partial/moderate assistance - Mobility A. Roll left and right 04-Supervision or touching assistance B. Sit to lying 04-Supervision or touching assistance C. Lying to sitting on side of bed 04-Supervision or touching assistance D. Sit to stand 04-Supervision or touching assistance E. Chair/ktq-od-bbbeq transfer 04-Supervision or touching assistance F. Toilet transfer 04-Supervision or touching assistance G. Car transfer 88-Not attempted due to medical condition or safety concerns I. Walk 10 feet 04-Supervision or touching assistance J. Walk 50 feet with two turns 88-Not attempted due to medical condition or safety concerns K. Walk 150 feet 88-Not attempted due to medical condition or safety concerns L. Walking 10 feet on uneven surfaces 88-Not attempted due to medical condition or safety concerns M. 1 step (curb) 88-Not attempted due to medical condition or safety concerns N. 4 steps 88-Not attempted due to medical condition or safety concerns O. 12 steps 88-Not attempted due to medical condition or safety concerns P. Picking up object 88-Not attempted due to medical condition or safety concerns R. Wheel 50 feet with two turns 09-Not applicable S. Wheel 150 feet 09-Not applicable - Bladder and Bowel Bladder continence 2-Incontinent less than daily Bowel continence 3-Always incontinent - Endurance Good - Balance Good - Safety Awareness Good POTENTIAL FUNCTIONAL GOALS FOR PATIENT TO ACHIEVE BY DISCHARGE: - Safety Precaution Patient will remain free from falls or injury at time of discharge. - Bed Mobility Patient will perform bed mobility at 4-Génesis level of assistance. - Transfers Patient will complete transfers from bed to chair at 4-Génesis level of assistance. - Mobility Patient will ambulate 150 ft with 4-Génesis level of assistance with RW. PATIENT REHAB POTENTIAL Fam CALVO is able and expected to receive 3 hours of individualized therapy daily on at least 5 of e very 7 days Fam CALVO's prognosis for significant practical improvement within a reasonable period of time appea rs Good Expected level of measurable improvement will be of a practical value to Fam CALVO's functional capa city or adaptations to impairments Has a viable Discharge Plan Medically appropriate; condition is sufficiently stable to participate in intensive rehab program DISCHARGE PLAN: - Estimated Length of Stay (days) 11. - Consensus on plan Discharge plan has been discussed with primary caregiver. Patient/Family is in agreement with the tali n. Primary caregiver is in agreement with the plan. - Patient/Family Goals Return home independently. - Planned Living Setting Upon Discharge Home, to live with Family/Relatives. Transitional Living. CONCLUSION ON REHABILITATION NECESSITY: I have evaluated patient's pre-admission functional status and, comparing it to the patient's post-ad mission functional status now, I conclude that the pre-admission assessment was accurate. Patient's c ondition on admission supports the medical necessity of admission to IRF. It is safe to proceed with patient's therapy program. SIGNATURE PANEL: (CDT)
[2022-01-13] MEDS: AMINO ACIDS/PROTEIN HYDROLYS 30 ML LIQUID.PKT PO SCH (20:06)
[2022-01-13] MEDS: BENZONATATE 100 MG CAP PO PRN (20:06)
[2022-01-13] MEDS: ATORVASTATIN 40 MG TAB PO SCH (20:06)
[2022-01-14] MEDS: INSULIN -REGULAR HUMAN 50 UNIT/0.5 ML ML SQ SCH ×4 (07:30→20:53)
[2022-01-14] MEDS: AMINO ACIDS/PROTEIN HYDROLYS 30 ML LIQUID.PKT PO SCH ×2 (08:00→20:55)
[2022-01-14] MEDS: [UNRECOGNIZED DRUG - OTHER] PO SCH (08:00)
[2022-01-14 08:16] LABS: Absolute Lymphocytes (CBC) 0.5 K/uL (0.7-4.9); Hematocrit 22.2 % (39.6-49.0); Lymphocytes % 8.5 % (15.3-44.8); MCV 101.5 fL (80-100); RBC Red Blood Cell Count 2.19 M/uL (4.33-5.43)
[2022-01-14 08:20] LABS: Potassium 4.2 mmol/L (3.5-5.1)
[2022-01-14] MEDS: LIDOCAINE 4% PATCH TOP SCH (08:50)
[2022-01-14] MEDS: PANTOPRAZOLE 40MG TABLET PO SCH (08:51)
[2022-01-14] MEDS: ASPIRIN EC 81 MG TAB PO SCH (08:51)
[2022-01-14] MEDS: DOXYCYCLINE 100 MG CAP PO SCH ×2 (08:51→20:53)
[2022-01-14] MEDS: CITALOPRAM 10 MG TABLET PO SCH (08:52)
[2022-01-14] MEDS: BISACODYL E.C. 5 MG TAB PO SCH (08:54)
[2022-01-14] MEDS: carvediloL 12.5 MG TAB PO SCH (08:55)
[2022-01-14] MEDS: HEPARIN 5000 UNIT/ML 1 ML VIAL SQ SCH ×2 (08:56→18:17)
[2022-01-14] MEDS: INSULIN GLARGINE 100 UNIT/ML SQ SCH (08:59)
--- NOTE | 2022-01-14 09:25 | RAD REPORT ---
EXAM DESCRIPTION: RAD - Chest Single View - 01/14/2022 9:17 am CLINICAL HISTORY: hx chf Chest pain. COMPARISON: Chest Single View dated 01/11/2022; Chest Single View dated 01/10/2022; Chest Single View dated 01/09/2022; Chest Single View dated 01/07/2022 FINDINGS: Portable technique limits examination quality. Moderate airspace opacities in the right lung have mildly worsened since comparative study. Left lung remains unchanged in aeration. The heart is moderately enlarged. No displaced fractures.Aortic ather osclerosis. IMPRESSION: Mild worsening in right lung aeration since comparative study.
[2022-01-14] MEDS: NYSTATIN PWDR 100000 UNIT/GM TOP SCH ×2 (12:07→20:54)
[2022-01-14] MEDS: MULTIVIT W/ MINERAL TAB PO SCH (14:21)
[2022-01-14] MEDS: OCUVITE (VIT A,C & E/LUTEIN/MINERAL) TABLET PO SCH (14:22)
--- NOTE | 2022-01-14 16:43 | CON ---
Reason For Consultation: Elevated BUN and creatinine, fluid management, end- stage renal disease. History Of Present Illness: This is a pleasant 76-year-old gentleman, well known to me from dialysis with significant past medical history of hypertension, hyperlipidemia, CAD complicated with congestive heart failure, diabetes complicated with neuropathy and nephropathy, end-stage renal disease, on hemodialysis at [facility] through left arm AV fistula, Wednesday, Wednesday, Wednesday, the patient was admitted to the hospital with deconditioning, severe anemia, received transfusion and challenged. The patient transferred to inpatient rehab to continue his treatment. The patient's lab showed still anemic with hyponatremia and alkalosis. For that reason, we have been consulted. Past Medical History: Includes; 1. Hypertension. 2. Hyperlipidemia. 3. CAD complicated with congestive heart failure ejection fraction of 40%. 4. Diabetes complicated with neuropathy and nephropathy. 5. End-stage renal disease, on hemodialysis. Past Surgical History: Includes AV fistula, bilateral angiograms, EGD. Social History: Denied smoking, denied drinking, denied drugs abuse. Review of Systems: Head and Neck: No red eye. No ear pain. GI: Has abdominal pain. : No polyuria. No dysuria. No hematuria. Database Administrator: Not applicable. Respiratory: Has shortness of breath. Cardiovascular: No chest pain. Endocrine: No polydipsia. Skin: No rash. Neuro: Has weakness. Musculoskeletal: Generalized fatigue. Physical Examination: Vital Signs: When I saw the patient; blood pressure 138/64, pulse of 95, afebrile. Chest: Crackles bilateral. Heart: S1, S2. Regular. Abdomen: Soft, nontender. Extremities: Plus edema. Neurologic: Alert. No focality. Laboratory Data: Sodium 137, potassium 4.2, bicarb 29, BUN 65, creatinine 5.6, calcium 9.8. WBC 5.6, H and H 7.5/22.2. Current Medications: The patient on include; 1. Doxycycline. 2. Levaquin. 3. Albuterol. 4. Epogen 10,000 every dialysis. 5. Atorvastatin. 6. Carvedilol. 7. Zofran. 8. Pantoprazole. Assessment And Plan: 1. 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 We will continue dialysis Wednesday, Wednesday, Wednesday. We will arrange for dialysis today. 2. Hyponatremia secondary to renal failure, will be corrected with dialysis. 3. Hypertension, controlled, optimal. We will decrease carvedilol to allow more blood pressure to challenge the patient. 4. Anemia of chronic kidney disease/gastrointestinal bleed, status post transfusion. Resume LUANNE. 5. Deconditioning. Continue PT/OT. 6. Pneumonia. Continue current antibiotic. We will follow up with primary. 7. Diabetes as by primary. Time spent examining the patient [id number], reviewing the data lab and radiology, placing orders, discussing with the patient, explaining risks, benefits, alternatives, discussing with the staff member including nursing discussing with the hospitalist more than 65 minutes. VISHAL Voice ID: [id number] Report ID: [id number] MTDD
[2022-01-14] MEDS: levoFLOXacin 500 MG TAB PO SCH (18:17)
--- NOTE | 2022-01-14 19:33 | R.PN ---
PROGRESS NOTES ENCOUNTER DATE AND TIME: 01/14/2022 19:23 (CDT) NAME ALLIE CALVO DATE OF : 1945 DATE OF ADMISSION: 01/12/2022 13:51 (CDT) J18.9 Pneumonia, unspecified organismCHIEF COMPLAINT: Pneumonia and debility SUBJECTIVE: Pt denied any Shortness of Breath. Pt denied any depression. Hgb decreased to 7.5 from 8.2, Spiral Gear Generator is 5.61. Patient has ESRD in HD and is followed by the renal servi ce. He may require blood transfusion with dialysis. Bed mobility, transfers and therapeutic exercises done with min to mod assistance. VITAL SIGNS Temperature: 97.6 F SBP/DBP: 138/64 Pulse: 95 Resp: 15 MEDICATION ALLERGIES: No Known Drug Allergies (NKDA) ENVIRONMENTAL ALLERGIES: - Substance Allergies None Known - Other Allergies None Known NURSING: - Shower allowing shower - Lab Results blood Sugar Check ACHS PRECAUTIONS: - Fall Precaution Bed alarm TABS alarm Wheel chair alarm - Incontinence Bowel Incontinence - DVT Risk due to restricted mobility and age - Skin Breakdown Risk due to restricted mobility and age - Weight Bearing Precaution WBAT left LE ACTIVITIES OOB only with supervision THERAPIES: - Dietary and Nutrition Adequate Nutrition. Nutritional Education. Nutritional Supplements. - Occupational Therapy Cognitive Retraining. Patient needs Occupational Therapy for a daily minimum of 1.5 hours at least 5 out of 7 days, to improve Activities of Daily Living, including: Eating, Grooming, Bathing, Dressing, Toileting, Toilet Transfers, Community Reintegration, Higher functional activities, Adaptive Equipme nt, Splinting, Household Tasks, and Other activities as determined. Visual Perceptual Training. - Physical Therapy Patient needs Physical Therapy for a daily minimum of 1.5 hours at least 5 out of 7 days, to improve: Mobility, Strengthening, Transfers, Stretching, ROM, Endurance, Ability to manage stairs, Gait, and Balance. PHYSICAL EXAM - Gen Alert and awake Lying in bed No apparent distress Oriented to: person, time, and place - Skin No skin breakdown. No abnormalities - Eyes No abnormalities - ENMT No abnormalities - Neck No abnormalities - CVS RRR - Chest No abnormalities - Resp Clear to auscultation - Abd + bowel sounds - GI Soft Deferred - No abnormalities - Ext Mild bilateral lower extremity edema. - MSK 4/5 weakness in both lower extremities. - Neuro No focal deficits - Psych No abnormalities ASSESSMENT: Pt. is a 76 yo male.On 01/07/2022 he was admitted to [facility] with diagnosis J1 8.9 Pneumonia, unspecified organism.His impairment category is Pulmonary Disorders 10 - Other Pulmon renate Disorders (10.9).Pre-morbidly, Pt. was independent/mod-I in Locomotion and Self-Care; and he had good Safety Awareness, Balance, Transfers Control, Endurance, and Sphincter Control.Currently, he has deficits of Locomotion, Self-Care, Endurance, Sphincter Control, Transfers Control, and Balance.Pt. is now [facility] to [facility] for acute in-patient rehabilitation in order to maximize patient's functional independence in activities of daily living, strength, ROM, and mobility .- Rehab Goal Patient has realistic goal of being discharged at assistance level 6-Kip to reside at Home with Fam macarena/Relatives. MDM/PLAN: - Physical Therapy Inability to transfer - to improve, our physical therapists will perform initial evaluation of pt's status upon admission and devise an individualized program for Bed mobility Need for home safety evaluation - to improve, our physical therapists will perform initial evaluatio n of pt's status upon admission and devise an individualized program for Home Evaluation Need in caregiver upon discharge - to improve, our physical therapists will perform initial evaluati on of pt's status upon admission and devise an individualized program for Caregiver Training New precaution - to improve, our physical therapists will perform initial evaluation of pt's status upon admission and devise an individualized program for Patient precaution education Edema - to improve, our physical therapists will perform initial evaluation of pt's status upon admis kori and devise an individualized program for Elevation Training, and Lymphedema Therapy Poor balance - to improve, our physical therapists will perform initial evaluation of pt's status up on admission and devise an individualized program for Balance Training Poor endurance - to improve, our physical therapists will perform initial evaluation of pt's status upon admission and devise an individualized program for Endurance Training Achieving independence - to improve, our physical therapists will perform initial evaluation of pt's status upon admission and devise an individualized program for Community Reintegration Activities - Occupational Therapy ADL deficits - to improve, our occupation therapists will perform initial evaluation of pt's status upon admission and devise an individualized program for Bathing, Bed mobility, Community Reintegratio n, Cooking, Dressing, Eating, Fine Motor Skills, Grooming, Homemaking, Kitchen Mobility, Laundry, Pat ient Education, Safety Awareness, Splinting - Positioning, Transfers(Toilet, Tub, Shower), and Wheel Chair Management Need for early breastfeeding care specialist - to improve, our occupation therapists will perform initial evaluation of pt's status upon admission and devise an individualized program for Caregiver Training - Other See attached MAR (Medication Administration Record) - Diet Type Continue Regular - Diet - Liquid Texture Continue Regular - Tube Feed Continue N/A - Incontinence Bowel Incontinence - Lab Results blood Sugar Check ACHS - DVT Risk due to restricted mobility and age - Skin Breakdown Risk due to restricted mobility and age - Weight Bearing Precaution WBAT left LE - Fall Precaution Bed alarm TABS alarm Wheel chair alarm - Diet - Solid Texture Continue Regular - Shower allowing shower FUNCTIONAL STATUS: UPDATED AT WEEKLY TEAM CONFERENCE - Bladder Same accident frequency: 7-Ind - No accidents in the past 7 days - Bowel Same accident frequency: 7-Ind - No accidents in the past 7 days - Walking Same score based on distance walked: 0(N/A) Same score based on distance walked: 1(<=50ft) - Wheelchair Same score based on distance traveled: 0(N/A) FUNCTIONAL STATUS: - Self-Care A. Eating sup B. Grooming Kip C. Bathing Génesis D. Dressing - Upper Génesis E. Dressing - Lower modA F. Toileting Génesis - Sphincter Control G. Bladder control maxA H. Bowel control Kip - Transfers Control I. Bed/Chair/Wheelchair Génesis J. Toilet Génesis K. Tub/Shower modA - Locomotion L. Walk/Wheelchair (B) modA M. Stairs ADNO - Communication N. Comprehension (B) Génesis O. Expression (B) Génesis - Social Cognition P. Social Interaction sup Q. Problem Solving sup R. Memory sup - Endurance Poor - Balance Poor - Safety Awareness Poor QI SCORES: - Self-Care A. Eating 05-Setup or clean-up assistance B. Oral hygiene 05-Setup or clean-up assistance C. Toileting hygiene 03-Partial/moderate assistance E. Shower/bathe self 03-Partial/moderate assistance F. Upper body dressing 05-Setup or clean-up assistance G. Lower body dressing 03-Partial/moderate assistance H. Putting on/taking off footwear 03-Partial/moderate assistance - Mobility A. Roll left and right 04-Supervision or touching assistance B. Sit to lying 04-Supervision or touching assistance C. Lying to sitting on side of bed 04-Supervision or touching assistance D. Sit to stand 04-Supervision or touching assistance E. Chair/eyp-ub-bvjqw transfer 04-Supervision or touching assistance F. Toilet transfer 04-Supervision or touching assistance G. Car transfer 88-Not attempted due to medical condition or safety concerns I. Walk 10 feet 04-Supervision or touching assistance J. Walk 50 feet with two turns 88-Not attempted due to medical condition or safety concerns K. Walk 150 feet 88-Not attempted due to medical condition or safety concerns L. Walking 10 feet on uneven surfaces 88-Not attempted due to medical condition or safety concerns M. 1 step (curb) 88-Not attempted due to medical condition or safety concerns N. 4 steps 88-Not attempted due to medical condition or safety concerns O. 12 steps 88-Not attempted due to medical condition or safety concerns P. Picking up object 88-Not attempted due to medical condition or safety concerns R. Wheel 50 feet with two turns 09-Not applicable S. Wheel 150 feet 09-Not applicable - Bladder and Bowel Bladder continence 2-Incontinent less than daily Bowel continence 3-Always incontinent - Endurance Good - Balance Good - Safety Awareness Good CURRENT FUNC. DEFICITS: Self-Care and Mobility SIGNATURE PANEL: (CDT)
[2022-01-14] MEDS: ATORVASTATIN 40 MG TAB PO SCH (20:53)
[2022-01-15 04:28] LABS: Absolute Lymphocytes (CBC) 0.6 K/uL (0.7-4.9); Hematocrit 21.6 % (39.6-49.0); Lymphocytes % 11.2 % (15.3-44.8); MCV 101.2 fL (80-100); MPV 8.4 fL (7.6-11.3); RBC Red Blood Cell Count 2.14 M/uL (4.33-5.43)
[2022-01-15 04:52] LABS: Magnesium 1.9 mg/dL (1.8-2.4); Potassium 3.7 mmol/L (3.5-5.1); Prealbumin 9.6 mg/dL (20-40)
[2022-01-15] MEDS: INSULIN -REGULAR HUMAN 50 UNIT/0.5 ML ML SQ SCH ×4 (06:58→20:19)
[2022-01-15] MEDS: PANTOPRAZOLE 40MG TABLET PO SCH (07:19)
[2022-01-15] MEDS: LIDOCAINE 4% PATCH TOP SCH (07:19)
[2022-01-15] MEDS: BISACODYL E.C. 5 MG TAB PO SCH (08:00)
[2022-01-15] MEDS: [UNRECOGNIZED DRUG - OTHER] PO SCH (08:00)
[2022-01-15] MEDS: AMINO ACIDS/PROTEIN HYDROLYS 30 ML LIQUID.PKT PO SCH ×2 (08:00→20:18)
[2022-01-15] MEDS: INSULIN GLARGINE 100 UNIT/ML SQ SCH (08:00)
[2022-01-15] MEDS: HEPARIN 5000 UNIT/ML 1 ML VIAL SQ SCH ×2 (08:00→08:50)
[2022-01-15] MEDS: NYSTATIN PWDR 100000 UNIT/GM TOP SCH ×2 (08:03→20:18)
[2022-01-15] MEDS: carvediloL 3.125 MG TAB PO SCH (08:04)
[2022-01-15] MEDS: ASPIRIN EC 81 MG TAB PO SCH (08:04)
[2022-01-15] MEDS: DOXYCYCLINE 100 MG CAP PO SCH ×2 (08:04→20:18)
[2022-01-15] MEDS: CITALOPRAM 10 MG TABLET PO SCH (08:05)
[2022-01-15] MEDS: NYSTATIN 500,000 UNIT/5 ML UDC PO SCH ×2 (09:27→20:18)
[2022-01-15] MEDS: OCUVITE (VIT A,C & E/LUTEIN/MINERAL) TABLET PO SCH (13:41)
[2022-01-15] MEDS: MULTIVIT W/ MINERAL TAB PO SCH (13:41)
--- NOTE | 2022-01-15 13:59 | PN ---
Date of Progress Note: 01/15/2022 Subjective: The patient was admitted with weakness and anemia. The patient transferred to rehab for rehabilitation. The patient feeling well, still weak. Physical Examination: Vital Signs: Blood pressure 120/60, pulse of 77. Chest: Clear to auscultation. Heart: S1, S2. Regular. Systolic murmur. Abdomen: Soft, nontender. Extremities: Dressing on the foot. Neurologic: Alert. No focality. Laboratory Data: WBC 5.4, H and H 7.3/21.6. Sodium 137, potassium 3.7, bicarb 31, BUN 40, creatinine 3.8, calcium 9.3. Current Medications: The patient on include; 1. Doxycycline. 2. Levaquin. 3. Epogen. 4. Carvedilol 3.125. 5. Atorvastatin. 6. Zofran. 7. Insulin. 8. Lactulose. Assessment And Plan: 1. End-stage renal disease. We will continue the patient on dialysis. The patient is going to be scheduled for dialysis tomorrow. 2. Anemia of chronic kidney disease. We will dialyze the patient and we will arrange for 2 units of blood transfusion. Continue LUANNE. 3. Hyponatremia, will be corrected with dialysis. 4. Hypertension, controlled, optimal. Continue current treatment. 5. Pneumonia. Continue current antibiotic. We will follow up with primary. 6. Deconditioning. Continue PT/OT. 7. Diabetes as by primary. 8. Hyperkalemia. The patient is going to be dialyzed on high potassium bath. Time spent examining the patient [id number], reviewing the data lab and radiology, placing orders, discussing with the patient, explaining risks, benefits, alternatives, discussing with the staff member including nursing discussing with the hospitalist more than 35 minutes. VISHAL Voice ID: [id number] Report ID: [id number] MANJINDER
--- NOTE | 2022-01-15 19:28 | R.PN ---
PROGRESS NOTES ENCOUNTER DATE AND TIME: 01/15/2022 19:23 (CDT) NAME ALLIE CALVO DATE OF : 1945 DATE OF ADMISSION: 01/12/2022 13:51 (CDT) J18.9 Pneumonia, unspecified organismCHIEF COMPLAINT: Pneumonia and debility SUBJECTIVE: Pt denied any Shortness of Breath. Pt denied any depression. 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 Patient has ESRD on HD and is followed by the renal servi ce. He will receive 2 units of blood with dialysis. Prealbumin 9.6. Ambulated 140' with CGA using a rolling walker. VITAL SIGNS Temperature: 97.9 F SBP/DBP: 120/60 Pulse: 77 Resp: 16 MEDICATION ALLERGIES: No Known Drug Allergies (NKDA) ENVIRONMENTAL ALLERGIES: - Substance Allergies None Known - Other Allergies None Known NURSING: - Shower allowing shower - Lab Results blood Sugar Check ACHS PRECAUTIONS: - Fall Precaution Bed alarm TABS alarm Wheel chair alarm - Incontinence Bowel Incontinence - DVT Risk due to restricted mobility and age - Skin Breakdown Risk due to restricted mobility and age - Weight Bearing Precaution WBAT left LE ACTIVITIES OOB only with supervision THERAPIES: - Dietary and Nutrition Adequate Nutrition. Nutritional Education. Nutritional Supplements. - Occupational Therapy Cognitive Retraining. Patient needs Occupational Therapy for a daily minimum of 1.5 hours at least 5 out of 7 days, to improve Activities of Daily Living, including: Eating, Grooming, Bathing, Dressing, Toileting, Toilet Transfers, Community Reintegration, Higher functional activities, Adaptive Equipme nt, Splinting, Household Tasks, and Other activities as determined. Visual Perceptual Training. - Physical Therapy Patient needs Physical Therapy for a daily minimum of 1.5 hours at least 5 out of 7 days, to improve: Mobility, Strengthening, Transfers, Stretching, ROM, Endurance, Ability to manage stairs, Gait, and Balance. PHYSICAL EXAM - Gen Alert and awake Lying in bed No apparent distress Oriented to: person, time, and place - Skin No skin breakdown. No abnormalities - Eyes No abnormalities - ENMT No abnormalities - Neck No abnormalities - CVS RRR - Chest No abnormalities - Resp Clear to auscultation - Abd + bowel sounds - GI Soft Deferred - No abnormalities - Ext Mild bilateral lower extremity edema. - MSK 4/5 weakness in both lower extremities. - Neuro No focal deficits - Psych No abnormalities ASSESSMENT: Pt. is a 76 yo male.On 01/07/2022 he was admitted to [facility] with diagnosis J1 8.9 Pneumonia, unspecified organism.His impairment category is Pulmonary Disorders 10 - Other Pulmon renate Disorders (10.9).Pre-morbidly, Pt. was independent/mod-I in Locomotion and Self-Care; and he had good Safety Awareness, Balance, Transfers Control, Endurance, and Sphincter Control.Currently, he has deficits of Locomotion, Self-Care, Endurance, Sphincter Control, Transfers Control, and Balance.Pt. is now referred to [facility] for acute in-patient rehabilitation in order to maximize patient's functional independence in activities of daily living, strength, ROM, and mobility .- Rehab Goal Patient has realistic goal of being discharged at assistance level 6-Kip to reside at Home with Fam macarena/Relatives. MDM/PLAN: - Physical Therapy Inability to transfer - to improve, our physical therapists will perform initial evaluation of pt's status upon admission and devise an individualized program for Bed mobility Need for home safety evaluation - to improve, our physical therapists will perform initial evaluatio n of pt's status upon admission and devise an individualized program for Home Evaluation Need in caregiver upon discharge - to improve, our physical therapists will perform initial evaluati on of pt's status upon admission and devise an individualized program for Caregiver Training New precaution - to improve, our physical therapists will perform initial evaluation of pt's status upon admission and devise an individualized program for Patient precaution education Edema - to improve, our physical therapists will perform initial evaluation of pt's status upon admi ssion and devise an individualized program for Elevation Training, and Lymphedema Therapy Poor balance - to improve, our physical therapists will perform initial evaluation of pt's status up on admission and devise an individualized program for Balance Training Poor endurance - to improve, our physical therapists will perform initial evaluation of pt's status upon admission and devise an individualized program for Endurance Training Achieving independence - to improve, our physical therapists will perform initial evaluation of pt's status upon admission and devise an individualized program for Community Reintegration Activities - Occupational Therapy ADL deficits - to improve, our occupation therapists will perform initial evaluation of pt's status upon admission and devise an individualized program for Bathing, Bed mobility, Community Reintegratio n, Cooking, Dressing, Eating, Fine Motor Skills, Grooming, Homemaking, Kitchen Mobility, Laundry, Pat ient Education, Safety Awareness, Splinting - Positioning, Transfers(Toilet, Tub, Shower), and Wheel Chair Management Need for assisted living care manager - to improve, our occupation therapists will perform initial evaluation of pt's status upon admission and devise an individualized program for Caregiver Training - Other See attached MAR (Medication Administration Record) - Diet Type Continue Regular - Diet - Liquid Texture Continue Regular - Tube Feed Continue N/A - Incontinence Bowel Incontinence - Lab Results blood Sugar Check ACHS - DVT Risk due to restricted mobility and age - Skin Breakdown Risk due to restricted mobility and age - Weight Bearing Precaution WBAT left LE - Fall Precaution Bed alarm TABS alarm Wheel chair alarm - Diet - Solid Texture Continue Regular - Shower allowing shower FUNCTIONAL STATUS: UPDATED AT WEEKLY TEAM CONFERENCE - Bladder Same accident frequency: 7-Ind - No accidents in the past 7 days - Bowel Same accident frequency: 7-Ind - No accidents in the past 7 days - Walking Same score based on distance walked: 0(N/A) Same score based on distance walked: 1(<=50ft) - Wheelchair Same score based on distance traveled: 0(N/A) FUNCTIONAL STATUS: - Self-Care A. Eating sup B. Grooming Kip C. Bathing Génesis D. Dressing - Upper Génesis E. Dressing - Lower modA F. Toileting Génesis - Sphincter Control G. Bladder control maxA H. Bowel control Kip - Transfers Control I. Bed/Chair/Wheelchair Génesis J. Toilet Génesis K. Tub/Shower modA - Locomotion L. Walk/Wheelchair (B) modA M. Stairs ADNO - Communication N. Comprehension (B) Génesis O. Expression (B) Génesis - Social Cognition P. Social Interaction sup Q. Problem Solving sup R. Memory sup - Endurance Poor - Balance Poor - Safety Awareness Poor QI SCORES: - Self-Care A. Eating 05-Setup or clean-up assistance B. Oral hygiene 05-Setup or clean-up assistance C. Toileting hygiene 03-Partial/moderate assistance E. Shower/bathe self 03-Partial/moderate assistance F. Upper body dressing 05-Setup or clean-up assistance G. Lower body dressing 03-Partial/moderate assistance H. Putting on/taking off footwear 03-Partial/moderate assistance - Mobility A. Roll left and right 04-Supervision or touching assistance B. Sit to lying 04-Supervision or touching assistance C. Lying to sitting on side of bed 04-Supervision or touching assistance D. Sit to stand 04-Supervision or touching assistance E. Chair/nqo-qx-[id number] transfer 04-Supervision or touching assistance F. Toilet transfer 04-Supervision or touching assistance G. Car transfer 88-Not attempted due to medical condition or safety concerns I. Walk 10 feet 04-Supervision or touching assistance J. Walk 50 feet with two turns 88-Not attempted due to medical condition or safety concerns K. Walk 150 feet 88-Not attempted due to medical condition or safety concerns L. Walking 10 feet on uneven surfaces 88-Not attempted due to medical condition or safety concerns M. 1 step (curb) 88-Not attempted due to medical condition or safety concerns N. 4 steps 88-Not attempted due to medical condition or safety concerns O. 12 steps 88-Not attempted due to medical condition or safety concerns P. Picking up object 88-Not attempted due to medical condition or safety concerns R. Wheel 50 feet with two turns 09-Not applicable S. Wheel 150 feet 09-Not applicable - Bladder and Bowel Bladder continence 2-Incontinent less than daily Bowel continence 3-Always incontinent - Endurance Good - Balance Good - Safety Awareness Good CURRENT FUNC. DEFICITS: Self-Care and Mobility SIGNATURE PANEL: (CDT)
[2022-01-15] MEDS: ATORVASTATIN 40 MG TAB PO SCH (20:18)
[2022-01-16 06:18] LABS: Absolute Lymphocytes (CBC) 0.7 K/uL (0.7-4.9); Lymphocytes % 12.3 % (15.3-44.8); MCV 99.9 fL (80-100); MPV 8.4 fL (7.6-11.3); RBC Red Blood Cell Count 2.02 M/uL (4.33-5.43)
[2022-01-16 06:24] LABS: Hematocrit 20.2 % (39.6-49.0)
[2022-01-16 06:26] LABS: Potassium 4.2 mmol/L (3.5-5.1)
[2022-01-16] MEDS: PANTOPRAZOLE 40MG TABLET PO SCH (07:05)
[2022-01-16 07:08] LABS: Anisocytosis 2+; Blood Morphology Comment NOTED (NOT SEEN); Platelet Estimate ADEQ; White Blood Cell Scan OK (OK)
[2022-01-16 07:09] LABS: Macrocytosis 1+
[2022-01-16] MEDS: INSULIN -REGULAR HUMAN 50 UNIT/0.5 ML ML SQ SCH ×4 (07:30→19:50)
[2022-01-16] MEDS: INSULIN GLARGINE 100 UNIT/ML SQ SCH (07:41)
[2022-01-16] MEDS: CITALOPRAM 10 MG TABLET PO SCH (07:42)
[2022-01-16] MEDS: NYSTATIN 500,000 UNIT/5 ML UDC PO SCH ×2 (07:42→19:49)
[2022-01-16] MEDS: NYSTATIN PWDR 100000 UNIT/GM TOP SCH ×2 (07:42→19:48)
[2022-01-16] MEDS: BISACODYL E.C. 5 MG TAB PO SCH (07:42)
[2022-01-16] MEDS: DOXYCYCLINE 100 MG CAP PO SCH ×2 (07:42→19:49)
[2022-01-16] MEDS: ASPIRIN EC 81 MG TAB PO SCH (07:43)
[2022-01-16] MEDS: carvediloL 3.125 MG TAB PO SCH (07:44)
[2022-01-16] MEDS: LIDOCAINE 4% PATCH TOP SCH (07:45)
[2022-01-16] MEDS: AMINO ACIDS/PROTEIN HYDROLYS 30 ML LIQUID.PKT PO SCH ×2 (07:45→19:49)
[2022-01-16] MEDS: HEPARIN 5000 UNIT/ML 1 ML VIAL SQ SCH ×2 (08:00→18:25)
[2022-01-16] MEDS: [UNRECOGNIZED DRUG - OTHER] PO SCH (08:00)
--- NOTE | 2022-01-16 09:52 | P.RH.PN ---
Estimated Length of Stay: 13 Expected Discharge Date: 01/25/22 Discharge Disposition Plan: Home Family Support: Yes Skilled Nursing Goal: Mobility, Transfers, Self Care Vital Signs: Last Vital Signs Temp 97.9 F 01/16/22 07:43 Pulse 85 01/16/22 07:44 Resp 18 01/16/22 07:43 BP 112/59 L 01/16/22 07:44 Pulse Ox 92 01/16/22 07:43 Laboratory: Laboratory Last Values WBC 5.60 K/uL (4.3-10.9) 01/16/22 05:01 RBC 2.02 M/uL (4.33-5.43) L 01/16/22 05:01 Hgb 6.9 g/dL (13.6-17.9) L* 01/16/22 05:01 Hct 20.2 % (39.6-49.0) L* 01/16/22 05:01 MCV 99.9 fL (80-100) 01/16/22 05:01 MCH 34.3 pg (27.0-35.0) 01/16/22 05:01 MCHC 34.3 g/dL (32.0-36.0) 01/16/22 05:01 RDW 27.1 % (12.1-15.2) H 01/16/22 05:01 Plt Count 166 K/uL (152-406) 01/16/22 05:01 MPV 8.4 fL (7.6-11.3) 01/16/22 05:01 Neutrophils % 78.0 % (41.7-73.7) H 01/16/22 05:01 Lymphocytes % 12.3 % (15.3-44.8) L 01/16/22 05:01 Monocytes % 7.2 % (3.3-12.3) 01/16/22 05:01 Eosinophils % 1.9 % (0-4.4) 01/16/22 05:01 Basophils % 0.6 % (0-1.3) 01/16/22 05:01 Absolute Neutrophils 4.3 K/uL (1.8-8.0) 01/16/22 05:01 Absolute Lymphocytes 0.7 K/uL (0.7-4.9) 01/16/22 05:01 Absolute Monocytes 0.4 K/uL (0.1-1.3) 01/16/22 05:01 Absolute Eosinophils 0.1 K/uL (0-0.5) 01/16/22 05:01 Absolute Basophils 0.0 K/uL (0-0.5) 01/16/22 05:01 Platelet Estimate Adeq 01/16/22 05:01 Polychromasia 1+ 01/13/22 04:10 Anisocytosis 2+ 01/16/22 05:01 Macrocytosis 1+ 01/16/22 05:01 Morphology Comment Noted (NOT SEEN) 01/16/22 05:01 Sodium 139 mmol/L (136-145) 01/16/22 05:01 Potassium 4.2 mmol/L (3.5-5.1) 01/16/22 05:01 Chloride 105 mmol/L (98-107) 01/16/22 05:01 Carbon Dioxide 27 mmol/L (21-32) 01/16/22 05:01 Anion Gap 11.2 mEq/L (5.0-15.0) 01/16/22 05:01 BUN 59 mg/dL (7-18) H 01/16/22 05:01 Creatinine 4.85 mg/dL (0.55-1.3) H D 01/16/22 05:01 Est GFR (CKD-EPI) 12 ml/min (=/>90) L 01/16/22 05:01 Glucose 185 mg/dL (74-106) H 01/16/22 05:01 POC Glucose 135 mg/dL (65-120) H 01/16/22 07:29 Calcium 9.3 mg/dL (8.5-10.1) 01/16/22 05:01 Magnesium 1.9 mg/dL (1.8-2.4) 01/15/22 04:14 Albumin 2.0 g/dL (3.4-5.0) L 01/15/22 04:14 Prealbumin 9.6 mg/dL (20-40) L 01/15/22 04:14 SARS-CoV-2 Rap RNA(RT-PCR) Negative (NEGATIVE) 01/14/22 09:20 Smear Scan Ok (OK) 01/16/22 05:01 ABO/Rh AB POSITIVE 01/15/22 13:11 Solid Phase Ab Screen Negative 01/15/22 13:11 Crossmatch See Detail 01/15/22 13:11 Weight: 176 lb Wound Present: No Closed Surgical Incision Present: No Negative Pressure Wound Therapy Present: No Physician Update: Labs reviewed. CGA with sit to stand, 40' with RW CGA, WC is dependent. Set up for grooming and upper body, min to mod for toilet transfers. Will get a MBSS today due to pneumonia. Functional Improvement: Patient is a relatively new admit to Inpatient rehab, and presents w/ good attitude toward therapy. Patient showed good participation in today's therapy, and completed task w/ improvement. Summary: Patient's care plan and roasterman goals have been reviewed and revised as necessary. Please see the Rehabilitation Signature page for all necessary signatures.
--- NOTE | 2022-01-16 10:19 | P.PN ---
Subjective Date of Service: 01/16/22 Subjective: No new changes, Other (Received HD today.) Physical Examination - Vital Signs Temperature: 97.9 F Blood Pressure: 112/59 Pulse: 85 Respirations: 18 Pulse Ox (%): 92 - Physical Exam General: In no apparent distress, Other (Appears chronically ill) HEENT: Atraumatic, Normocephalic Neck: Supple, JVD not distended Respiratory: Other (Symmetric chest expansion) Cardiovascular: No rubs, No murmurs Gastrointestinal: Soft and benign, No rebound Musculoskeletal: No clubbing Integumentary: No warmth Neurological: Normal speech, Normal tone Urinary: Other (No bladder distention) External genitalia: Deferred Rectal: Deferred - Studies Laboratory Data (last 24 hrs) 01/16/22 05:01: Sodium 139, Potassium 4.2, BUN 59 H, Creatinine 4.85 H D, Glucose 185 H 01/16/22 05:01: WBC 5.60, Hgb 6.9 L*, Hct 20.2 L*, Plt Count 166 Assessment And Plan - Plan 1. End-stage renal disease. HD received today per [facility] sk[facility]. Renal + DM diet. 2. Anemia of chronic kidney disease. pRBC transfusion today. Continue LUANNE. 3. Hypertension, controlled. Continue current med regimen. 4. Pneumonia. Continue current antibiotic. We will follow up with primary. 5. Deconditioning. PT/OT. 6. DM2. Per primary team.
[2022-01-16] MEDS: OCUVITE (VIT A,C & E/LUTEIN/MINERAL) TABLET PO SCH (12:00)
[2022-01-16] MEDS ORDERED: NA CHLORIDE 0.9% 250 ML IV SCH (12:00)
[2022-01-16] MEDS: MULTIVIT W/ MINERAL TAB PO SCH (12:00)
[2022-01-16] MEDS: EPOETIN ALFA 10,000 UNIT/ML VIAL IV SCH (12:00)
[2022-01-16] MEDS: levoFLOXacin 500 MG TAB PO SCH (16:56)
[2022-01-16 17:34] LABS: Hematocrit 28.3 % (39.6-49.0)
[2022-01-16] MEDS: ATORVASTATIN 40 MG TAB PO SCH (19:49)
[2022-01-17 07:08] LABS: Absolute Lymphocytes (CBC) 0.8 K/uL (0.7-4.9); Hematocrit 25.8 % (39.6-49.0); Lymphocytes % 11.6 % (15.3-44.8); MCV 97.7 fL (80-100); MPV 8.5 fL (7.6-11.3); RBC Red Blood Cell Count 2.64 M/uL (4.33-5.43)
[2022-01-17 07:18] LABS: Potassium 3.9 mmol/L (3.5-5.1)
[2022-01-17] MEDS: HEPARIN 5000 UNIT/ML 1 ML VIAL SQ SCH (07:20)
[2022-01-17] MEDS: INSULIN -REGULAR HUMAN 50 UNIT/0.5 ML ML SQ SCH ×4 (07:25→19:57)
[2022-01-17] MEDS: INSULIN GLARGINE 100 UNIT/ML SQ SCH (07:26)
[2022-01-17] MEDS: PANTOPRAZOLE 40MG TABLET PO SCH (07:27)
[2022-01-17] MEDS: AMINO ACIDS/PROTEIN HYDROLYS 30 ML LIQUID.PKT PO SCH ×2 (08:00→19:56)
[2022-01-17] MEDS: [UNRECOGNIZED DRUG - OTHER] PO SCH (08:00)
[2022-01-17] MEDS: BISACODYL E.C. 5 MG TAB PO SCH (08:00)
[2022-01-17] MEDS: NYSTATIN PWDR 100000 UNIT/GM TOP SCH ×2 (08:48→19:56)
[2022-01-17] MEDS: LIDOCAINE 4% PATCH TOP SCH (08:48)
[2022-01-17] MEDS: ASPIRIN EC 81 MG TAB PO SCH (08:48)
[2022-01-17] MEDS: NYSTATIN 500,000 UNIT/5 ML UDC PO SCH ×2 (08:48→19:56)
[2022-01-17] MEDS: carvediloL 3.125 MG TAB PO SCH (08:48)
[2022-01-17] MEDS: CITALOPRAM 10 MG TABLET PO SCH (08:49)
[2022-01-17] MEDS: OCUVITE (VIT A,C & E/LUTEIN/MINERAL) TABLET PO SCH (11:32)
[2022-01-17] MEDS: MULTIVIT W/ MINERAL TAB PO SCH (11:32)
--- NOTE | 2022-01-17 16:57 | RAD REPORT ---
EXAM DESCRIPTION: RAD - Chest Single View - 01/17/2022 4:50 pm CLINICAL HISTORY: coughing COMPARISON: Portable January 14 and January 11, CT chest January 09 TECHNIQUE: AP portable chest image was obtained 01/17/2022 4:50 pm . FINDINGS: Extensive right lung field parenchymal opacification not clearly different from comparison . Right-sided pleural effusion also without substantial change. Left lung field markings are accentua swathi by shallow inspiration. No improvement from prior imaging. Enlarged cardiac silhouette is stable. Upper lobe vasculature is prominent. No pneumothorax. No acut e bony abnormality seen. No acute aortic findings suspected. IMPRESSION: Extensive right lung field pleural and parenchymal opacification not clearly different f rom comparison. Left lung field interstitial opacification also stable.
--- NOTE | 2022-01-17 18:04 | RAD REPORT ---
EXAM DESCRIPTION: - CT-CHEST WITHOUT CONTRAST - 01/17/2022 5:40 pm CLINICAL HISTORY: worsening right pleural effusion COMPARISON: Chest Single View dated 01/17/2022; Thorax Wo Con dated 01/09/2022 TECHNIQUE: Axial 5 mm thick images of the chest were obtained without IV contrast. All CT scans are performed using dose optimization technique as appropriate and may include automated exposure control or mA/KV adjustment according to patient size. FINDINGS: Small left pleural effusion has not changed. Minimal left base atelectasis present and sta ble. Dense consolidated mass density of the right upper lobe is present. Air bronchograms are still p resent but diminished in size from prior imaging. No cavitation. Right-sided pleural effusion has inc reased. There is increased atelectasis in the right lower lobe. No pneumothorax. No abnormal mediastinal or hilar masses or lymphadenopathy seen. No gross aortic or pulmonary artery finding suspected. Mild cardiomegaly is present and stable. No pericardial effusion. Dense coronary artery calcifications are present. No chest wall mass or abnormal axillary lymphadenopathy. IMPRESSION: Dense right upper lobe consolidation is still present. Air bronchograms have decreased i n prominence. No cavitation has developed. Right-sided pleural effusion has increased in size with right lower lobe partial atelectasis.
[2022-01-17] MEDS: ATORVASTATIN 40 MG TAB PO SCH (19:56)
--- NOTE | 2022-01-18 00:44 | PN ---
Date of Progress Note: 01/17/2022 Chief Complaint: End-stage renal disease, on hemodialysis History Of Present Illness: The patient has multiple medical problems. He is recovering from sepsis . He has severe deconditioning and is undergoing physical therapy. The patient was treated with ant ibiotics for pneumonia. He denies PND orthopnea. Physical Examination: Lungs: Few rhonchi. Heart: S1, S2. Abdomen: Soft, benign. Extremities: No edema. Impression And Plan: 1.End-stage renal disease. Continue dialysis on Wednesday, Wednesday, Wednesday. The patient received di alysis yesterday. 2.Anemia due to chronic kidney disease. Patient received packed red blood cell transfusion yesterda y. Monitor hemoglobin level. Continue LUANNE. 3.Hypertension, controlled. Adjust medication for optimal blood pressure control. 4.Pneumonia. Continue antibiotics. 5.Diabetes mellitus, on insulin per primary team. EB/MODL Voice ID: [id number] Report ID: [id number]
[2022-01-18] MEDS: BENZONATATE 100 MG CAP PO PRN ×3 (04:58→19:55)
[2022-01-18] MEDS: INSULIN -REGULAR HUMAN 50 UNIT/0.5 ML ML SQ SCH ×4 (07:23→19:55)
[2022-01-18] MEDS: PANTOPRAZOLE 40MG TABLET PO SCH (07:31)
[2022-01-18] MEDS: HEPARIN 5000 UNIT/ML 1 ML VIAL SQ SCH ×2 (07:35→19:55)
[2022-01-18] MEDS: [UNRECOGNIZED DRUG - OTHER] PO SCH (08:00)
[2022-01-18] MEDS: BISACODYL E.C. 5 MG TAB PO SCH (08:00)
[2022-01-18] MEDS: INSULIN GLARGINE 100 UNIT/ML SQ SCH ×3 (08:00→12:59)
[2022-01-18] MEDS: AMINO ACIDS/PROTEIN HYDROLYS 30 ML LIQUID.PKT PO SCH ×2 (08:00→19:55)
[2022-01-18] MEDS: NYSTATIN PWDR 100000 UNIT/GM TOP SCH ×2 (08:17→19:55)
[2022-01-18] MEDS: LIDOCAINE 4% PATCH TOP SCH (08:22)
[2022-01-18] MEDS: NYSTATIN 500,000 UNIT/5 ML UDC PO SCH ×2 (08:22→19:55)
[2022-01-18] MEDS: ASPIRIN EC 81 MG TAB PO SCH (08:24)
[2022-01-18] MEDS: carvediloL 3.125 MG TAB PO SCH (08:24)
[2022-01-18] MEDS: CITALOPRAM 10 MG TABLET PO SCH (08:24)
[2022-01-18] MEDS ORDERED: BISACODYL E.C. 5 MG TAB PO PRN (08:29)
[2022-01-18] MEDS: ONDANSETRON 4 MG (ODT) TAB PO PRN (10:23)
[2022-01-18 11:23] LABS: Albumin 2.1 g/dL (3.4-5.0); Phosphorus 4.7 mg/dL (2.5-4.9); Potassium 4.5 mmol/L (3.5-5.1)
[2022-01-18 12:12] LABS: Absolute Lymphocytes (CBC) 0.6 K/uL (0.7-4.9); Hematocrit 26.9 % (39.6-49.0); Lymphocytes % 8.5 % (15.3-44.8); MCV 96.7 fL (80-100); MPV 7.9 fL (7.6-11.3); RBC Red Blood Cell Count 2.78 M/uL (4.33-5.43)
[2022-01-18] MEDS: OCUVITE (VIT A,C & E/LUTEIN/MINERAL) TABLET PO SCH (12:34)
[2022-01-18] MEDS: MULTIVIT W/ MINERAL TAB PO SCH (12:34)
--- NOTE | 2022-01-18 14:22 | RAD REPORT ---
EXAM DESCRIPTION: RAD - Chest Lateral Decubitus - 01/18/2022 2:12 pm CLINICAL HISTORY: Pleural effusion, right lung field consolidated mass COMPARISON: CT chest January 17, portable chest January 17 TECHNIQUE: Right and left lateral decubitus films were obtained. FINDINGS: The small left pleural effusion is seen to layer. Dense consolidation remains in the right upper lung field. Right pleural effusion is seen to layer along the lateral right base but does not clearly extend to the apex. . IMPRESSION: Partial layering of the right pleural effusion. Layering of the small left pleural effusion.
[2022-01-18] MEDS: levoFLOXacin 500 MG TAB PO SCH (17:43)
[2022-01-18] MEDS: ATORVASTATIN 40 MG TAB PO SCH (19:55)
--- NOTE | 2022-01-19 00:25 | PN ---
Date of Progress Note: 01/18/2022 Chief Complaint: End-stage renal disease, on hemodialysis. Subjective: The patient has multiple medical problems. He is recovering from sepsis. He has severe deconditioning and is undergoing physical therapy. The patient was found to have pulmonary infiltra te and is started on antibiotics. He has recent history of pneumonia. Review of Systems: Denies fever or chills. Physical Examination: Lungs: Clear to auscultation bilaterally. Heart: S1, S2. Abdomen: Soft. Extremities: No edema. Impression And Plan: 1.End-stage renal disease. Next dialysis tomorrow. Monitor blood pressure during dialysis and adju st ultrafiltration goal to prevent orthostatic hypotension. 2.Anemia due to chronic kidney disease. The patient received packed red blood cell transfusion. Mo nitor hemoglobin level. Continue LUANNE. 3.Hypertension, controlled. Continue medication. Adjust medication according to blood pressure. 4.Pneumonia. The patient is on antibiotics. Further recommendation from Pulmonary Team. CHRISTINA/MODL Voice ID: [id number] Report ID: [id number]
[2022-01-19] MEDS: BENZONATATE 100 MG CAP PO PRN (05:20)
[2022-01-19 05:29] LABS: Potassium 4.7 mmol/L (3.5-5.1)
[2022-01-19] MEDS: INSULIN -REGULAR HUMAN 50 UNIT/0.5 ML ML SQ SCH ×4 (07:03→21:00)
[2022-01-19] MEDS: HEPARIN 5000 UNIT/ML 1 ML VIAL SQ SCH ×2 (07:17→18:14)
[2022-01-19] MEDS: PANTOPRAZOLE 40MG TABLET PO SCH (07:22)
[2022-01-19] MEDS: [UNRECOGNIZED DRUG - OTHER] PO SCH (08:00)
[2022-01-19] MEDS: AMINO ACIDS/PROTEIN HYDROLYS 30 ML LIQUID.PKT PO SCH ×2 (08:00→20:00)
[2022-01-19] MEDS: NYSTATIN 500,000 UNIT/5 ML UDC PO SCH (08:00)
[2022-01-19] MEDS: ALBUTEROL 2.5 MG/3 ML NEB SOL IH SCH ×3 (08:29→20:25)
[2022-01-19] MEDS ORDERED: NYSTATIN 500,000 UNIT/5 ML UDC PO PRN (08:46)
[2022-01-19] MEDS: ASPIRIN EC 81 MG TAB PO SCH (08:49)
[2022-01-19] MEDS: carvediloL 3.125 MG TAB PO SCH (08:49)
[2022-01-19] MEDS: predniSONE 20 MG TAB PO SCH ×3 (08:49→21:55)
[2022-01-19] MEDS: INSULIN GLARGINE 100 UNIT/ML SQ SCH ×3 (08:50→21:56)
[2022-01-19] MEDS: CITALOPRAM 10 MG TABLET PO SCH (08:50)
[2022-01-19] MEDS: NYSTATIN PWDR 100000 UNIT/GM TOP SCH ×3 (08:54→21:56)
[2022-01-19] MEDS ORDERED: ALBUTEROL 2.5 MG/3 ML NEB SOL NEB PRN (09:00)
[2022-01-19] MEDS: LIDOCAINE 4% PATCH TOP SCH (09:53)
--- NOTE | 2022-01-19 12:07 | RAD REPORT ---
EXAM DESCRIPTION: RAD - Barium Swallow Modified - 01/19/2022 11:48 am CLINICAL HISTORY: dysphagia COMPARISON: Abdomen Exam Complete dated 04/10/2016 TECHNIQUE: The patient was given liquid, semi-solid and solid forms of barium. Lateral view fluorosc opic imaging was performed in conjunction with speech pathology service. FINDINGS: Aspiration: with cough with thin liquids Pharyngeal residue: Mild with thin, nectar, puree, dry solid whole pill w/ thin in the Vallecula Mild with nectar, puree, dry solid in the Pyriform Severe dysmotility at medial esophageal region, esophageal stenosis at inferior region, esophageal sp asming at medial and inferior regions, Moderate retropulsion to superior region. Total fluoroscopy time: 4 minutes 33 seconds
--- NOTE | 2022-01-19 12:08 | P.PN ---
Subjective Date of Service: 01/19/22 Chief Complaint: Opacification in the right hemithorax Subjective: Improving (Patient is still complaining of cough congestion mild hemoptysis chest x-ray does look a little worse) Review of Systems General: Weakness Respiratory: Cough, Shortness of Breath Physical Examination - Vital Signs Temperature: 97.2 F Blood Pressure: 137/66 Pulse: 86 Respirations: 18 Pulse Ox (%): 93 - Physical Exam General: Alert, Oriented x3 Neck: Supple Respiratory: Expiratory wheezes, Rhonchi/gurgles Cardiovascular: No edema, Regular rate/rhythm, Normal S1 S2 Gastrointestinal: Normal bowel sounds, Soft and benign - Studies Laboratory Data (last 24 hrs) 01/19/22 04:11: Sodium 135 L, Potassium 4.7, BUN 66 H, Creatinine 5.97 H*, Glucose 144 H 01/18/22 10:51: WBC 7.60, Hgb 9.4 L, Hct 26.9 L, Plt Count 173 Assessment And Plan - Current Problems (Diagnosis) (1) Pneumonia Current Visit: Yes Status: Acute Plan: Patient is 76 years of age admitted with right upper lobe pneumonia with associated with mild hemoptysis he appears to be stable will have some consolidation on the right side most likely postinflammatory changes add a trial of steroids DC levofloxacin evidence of active ongoing sepsis significant pleural effusion on the right side his vital signs are stable I ordered some nebulizers and sputum cultures again Qualifiers: Pneumonia type: due to unspecified organism Laterality: right
[2022-01-19] MEDS: OCUVITE (VIT A,C & E/LUTEIN/MINERAL) TABLET PO SCH (12:50)
[2022-01-19] MEDS: MULTIVIT W/ MINERAL TAB PO SCH (12:50)
--- NOTE | 2022-01-19 19:36 | R.PN ---
PROGRESS NOTES ENCOUNTER DATE AND TIME: 01/19/2022 19:32 (CDT) NAME ALLIE CALVO DATE OF : 1945 DATE OF ADMISSION: 01/12/2022 13:51 (CDT) J18.9 Pneumonia, unspecified organismCHIEF COMPLAINT: Pneumonia and debility SUBJECTIVE: Pt denied any Shortness of Breath. Pt denied any depression. Hgb increased to 9.4 from 8.8. Adjuster Leader is 5.97. Patient has ESRD on HD and is followed by the renal servi ce. He will receive 2 units of blood with dialysis. Prealbumin 9.6. Therapeutic exercises done with min assistance. VITAL SIGNS Temperature: 97.2F SBP/DBP: 137/66 Pulse: 86 Resp: 15 MEDICATION ALLERGIES: No Known Drug Allergies (NKDA) ENVIRONMENTAL ALLERGIES: - Substance Allergies None Known - Other Allergies None Known NURSING: - Shower allowing shower - Lab Results blood Sugar Check ACHS PRECAUTIONS: - Fall Precaution Bed alarm TABS alarm Wheel chair alarm - Incontinence Bowel Incontinence - DVT Risk due to restricted mobility and age - Skin Breakdown Risk due to restricted mobility and age - Weight Bearing Precaution WBAT left LE ACTIVITIES OOB only with supervision THERAPIES: - Dietary and Nutrition Adequate Nutrition. Nutritional Education. Nutritional Supplements. - Occupational Therapy Cognitive Retraining. Patient needs Occupational Therapy for a daily minimum of 1.5 hours at least 5 out of 7 days, to improve Activities of Daily Living, including: Eating, Grooming, Bathing, Dressing, Toileting, Toilet Transfers, Community Reintegration, Higher functional activities, Adaptive Equipme nt, Splinting, Household Tasks, and Other activities as determined. Visual Perceptual Training. - Physical Therapy Patient needs Physical Therapy for a daily minimum of 1.5 hours at least 5 out of 7 days, to improve: Mobility, Strengthening, Transfers, Stretching, ROM, Endurance, Ability to manage stairs, Gait, and Balance. PHYSICAL EXAM - Gen Alert and awake Lying in bed No apparent distress Oriented to: person, time, and place - Skin No skin breakdown. No abnormalities - Eyes No abnormalities - ENMT No abnormalities - Neck No abnormalities - CVS RRR - Chest No abnormalities - Resp Clear to auscultation - Abd + bowel sounds - GI Soft Deferred - No abnormalities - Ext Mild bilateral lower extremity edema. - MSK 4/5 weakness in both lower extremities. - Neuro No focal deficits - Psych No abnormalities ASSESSMENT: Pt. is a 76 yo male.On 01/07/2022 he was admitted to [facility] with diagnosis J1 8.9 Pneumonia, unspecified organism.His impairment category is Pulmonary Disorders 10 - Other Pulmon renate Disorders (10.9).Pre-morbidly, Pt. was independent/mod-I in Locomotion and Self-Care; and he had good Safety Awareness, Balance, Transfers Control, Endurance, and Sphincter Control.Currently, he has deficits of Locomotion, Self-Care, Endurance, Sphincter Control, Transfers Control, and Balance.Pt. is now referred to [facility] for acute in-patient rehabilitation in order to maximize patient's functional independence in activities of daily living, strength, ROM, and mobility .- Rehab Goal Patient has realistic goal of being discharged at assistance level 6-Kip to reside at Home with Fam macarena/Relatives. MDM/PLAN: - Physical Therapy Inability to transfer - to improve, our physical therapists will perform initial evaluation of pt's status upon admission and devise an individualized program for Bed mobility Need for home safety evaluation - to improve, our physical therapists will perform initial evaluatio n of pt's status upon admission and devise an individualized program for Home Evaluation Need in caregiver upon discharge - to improve, our physical therapists will perform initial evaluati on of pt's status upon admission and devise an individualized program for Caregiver Training New precaution - to improve, our physical therapists will perform initial evaluation of pt's status upon admission and devise an individualized program for Patient precaution education Edema - to improve, our physical therapists will perform initial evaluation of pt's status upon admi ssion and devise an individualized program for Elevation Training, and Lymphedema Therapy Poor balance - to improve, our physical therapists will perform initial evaluation of pt's status up on admission and devise an individualized program for Balance Training Poor endurance - to improve, our physical therapists will perform initial evaluation of pt's status upon admission and devise an individualized program for Endurance Training Achieving independence - to improve, our physical therapists will perform initial evaluation of pt's status upon admission and devise an individualized program for Community Reintegration Activities - Occupational Therapy ADL deficits - to improve, our occupation therapists will perform initial evaluation of pt's status upon admission and devise an individualized program for Bathing, Bed mobility, Community Reintegratio n, Cooking, Dressing, Eating, Fine Motor Skills, Grooming, Homemaking, Kitchen Mobility, Laundry, Pat ient Education, Safety Awareness, Splinting - Positioning, Transfers(Toilet, Tub, Shower), and Wheel Chair Management 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 - to improve, our occupation therapists will perform initial evaluation of pt's status upon admission and devise an individualized program for Caregiver Training - Other See attached MAR (Medication Administration Record) - Diet Type Continue Regular - Diet - Liquid Texture Continue Regular - Tube Feed Continue N/A - Incontinence Bowel Incontinence - Lab Results blood Sugar Check ACHS - DVT Risk due to restricted mobility and age - Skin Breakdown Risk due to restricted mobility and age - Weight Bearing Precaution WBAT left LE - Fall Precaution Bed alarm TABS alarm Wheel chair alarm - Diet - Solid Texture Continue Regular - Shower allowing shower FUNCTIONAL STATUS: UPDATED AT WEEKLY TEAM CONFERENCE - Bladder Same accident frequency: 7-Ind - No accidents in the past 7 days - Bowel Same accident frequency: 7-Ind - No accidents in the past 7 days - Walking Same score based on distance walked: 0(N/A) Same score based on distance walked: 1(<=50ft) - Wheelchair Same score based on distance traveled: 0(N/A) FUNCTIONAL STATUS: - Self-Care A. Eating sup B. Grooming Kip C. Bathing Génesis D. Dressing - Upper Génesis E. Dressing - Lower modA F. Toileting Génesis - Sphincter Control G. Bladder control maxA H. Bowel control Kip - Transfers Control I. Bed/Chair/Wheelchair Génesis J. Toilet Génesis K. Tub/Shower modA - Locomotion L. Walk/Wheelchair (B) modA M. Stairs ADNO - Communication N. Comprehension (B) Génesis O. Expression (B) Génesis - Social Cognition P. Social Interaction sup Q. Problem Solving sup R. Memory sup - Endurance Poor - Balance Poor - Safety Awareness Poor QI SCORES: - Self-Care A. Eating 05-Setup or clean-up assistance B. Oral hygiene 05-Setup or clean-up assistance C. Toileting hygiene 03-Partial/moderate assistance E. Shower/bathe self 03-Partial/moderate assistance F. Upper body dressing 05-Setup or clean-up assistance G. Lower body dressing 03-Partial/moderate assistance H. Putting on/taking off footwear 03-Partial/moderate assistance - Mobility A. Roll left and right 04-Supervision or touching assistance B. Sit to lying 04-Supervision or touching assistance C. Lying to sitting on side of bed 04-Supervision or touching assistance D. Sit to stand 04-Supervision or touching assistance E. Chair/kvu-kz-[id number] transfer 04-Supervision or touching assistance F. Toilet transfer 04-Supervision or touching assistance G. Car transfer 88-Not attempted due to medical condition or safety concerns I. Walk 10 feet 04-Supervision or touching assistance J. Walk 50 feet with two turns 88-Not attempted due to medical condition or safety concerns K. Walk 150 feet 88-Not attempted due to medical condition or safety concerns L. Walking 10 feet on uneven surfaces 88-Not attempted due to medical condition or safety concerns M. 1 step (curb) 88-Not attempted due to medical condition or safety concerns N. 4 steps 88-Not attempted due to medical condition or safety concerns O. 12 steps 88-Not attempted due to medical condition or safety concerns P. Picking up object 88-Not attempted due to medical condition or safety concerns R. Wheel 50 feet with two turns 09-Not applicable S. Wheel 150 feet 09-Not applicable - Bladder and Bowel Bladder continence 2-Incontinent less than daily Bowel continence 3-Always incontinent - Endurance Good - Balance Good - Safety Awareness Good CURRENT FUNC. DEFICITS: Self-Care and Mobility SIGNATURE PANEL: (CDT)
[2022-01-19] MEDS: ATORVASTATIN 40 MG TAB PO SCH (21:58)
[2022-01-20] MEDS: ALBUTEROL 2.5 MG/3 ML NEB SOL IH SCH ×4 (01:30→20:00)
--- NOTE | 2022-01-20 01:32 | PN ---
Date of Progress Note: 01/19/2022 Chief Complaint: End-stage renal disease, on hemodialysis. History Of Present Illness: The patient is undergoing rehab. He was found to have opacification in the right hemithorax. He was complaining of cough, congestion. He had mild hemoptysis. Chest x-ray shows some worsening of the pulmonary infiltrate. The patient is taking antibiotics for pneumonia. He has history of end-stage renal disease and has been dialyzed 3 times per week. He is scheduled to have dialysis today for metabolic clearance and to obtain ultrafiltration. Review of Systems: Denies fever, chills. Complains of cough with mild hemoptysis today. Denies nausea, vomiting. Physical Examination: Lungs: Few rhonchi. Heart: S1, S2. Abdomen: Soft. Extremities: Minimal peripheral edema. Impression And Plan: 1. End-stage renal disease. Dialysis will be done today with ultrafiltration. Electrolytes are stable. Potassium is within normal limits. 2. Hypertension. Monitor blood pressure during dialysis and adjust ultrafiltration. Ajust ultrafiltration goal as needed to prevent intradialytic hypotension. 3. Pneumonia. The patient is undergoing workup with Pulmonary service. The patient will be started on steroids and antibiotics were adjusted by Pulmonary team. Patient will continue nebulizers and sputum culture was obtained. 4. Hypertension. Continue blood pressure medication. 5. Anemia, chronic kidney disease. Monitor hemoglobin level. Adjust LUANNE as needed. 6. Renal osteodystrophy. Continue renal diet and binders. CHRISTINA/MODL Voice ID: [id number] Report ID: [id number] MTDD
[2022-01-20] MEDS: PANTOPRAZOLE 40MG TABLET PO SCH (06:40)
[2022-01-20] MEDS: HEPARIN 5000 UNIT/ML 1 ML VIAL SQ SCH ×2 (07:37→18:10)
[2022-01-20] MEDS: INSULIN GLARGINE 100 UNIT/ML SQ SCH ×2 (07:48→20:00)
[2022-01-20] MEDS: carvediloL 3.125 MG TAB PO SCH (07:50)
[2022-01-20] MEDS: NYSTATIN PWDR 100000 UNIT/GM TOP SCH ×2 (07:50→20:01)
[2022-01-20] MEDS: INSULIN -REGULAR HUMAN 50 UNIT/0.5 ML ML SQ SCH ×4 (07:50→20:00)
[2022-01-20] MEDS: LIDOCAINE 4% PATCH TOP SCH (07:50)
[2022-01-20] MEDS: CITALOPRAM 10 MG TABLET PO SCH (07:51)
[2022-01-20] MEDS: ASPIRIN EC 81 MG TAB PO SCH (07:51)
[2022-01-20] MEDS: predniSONE 20 MG TAB PO SCH (07:51)
[2022-01-20] MEDS: [UNRECOGNIZED DRUG - OTHER] PO SCH (07:54)
[2022-01-20] MEDS: AMINO ACIDS/PROTEIN HYDROLYS 30 ML LIQUID.PKT PO SCH ×2 (08:00→20:02)
[2022-01-20] MEDS: OCUVITE (VIT A,C & E/LUTEIN/MINERAL) TABLET PO SCH (11:39)
[2022-01-20] MEDS: MULTIVIT W/ MINERAL TAB PO SCH (11:39)
--- NOTE | 2022-01-20 12:22 | P.PN ---
Subjective Date of Service: 01/20/22 Chief Complaint: Opacification in the right hemithorax Subjective: Improving (Patient is improving cough and congestion has improved) Review of Systems General: Weakness Respiratory: Cough, Shortness of Breath Physical Examination - Vital Signs Temperature: 98.0 F Blood Pressure: 149/67 Pulse: 79 Respirations: 19 Pulse Ox (%): 94 - Physical Exam General: Alert, In no apparent distress, Oriented x3 Respiratory: Clear to auscultation bilaterally Assessment And Plan - Current Problems (Diagnosis) (1) Pneumonia Current Visit: Yes Status: Acute Plan: Most likely has postinflammatory pneumonia doubt if his he has underlying active bacterial sepsis continue with steroids oxygenation is satisfactory patient feels better cough and congestion appears to have resolved sputum cultures are pending use dose of prednisone to 10 mg twice a day chest x-ray ordered for tomorrow Qualifiers: Pneumonia type: due to unspecified organism Laterality: right
[2022-01-20] MEDS ORDERED: ALBUTEROL 2.5 MG/3 ML NEB SOL NEB PRN (15:00)
--- NOTE | 2022-01-20 17:33 | PN ---
Date of Progress Note: 01/20/2022 Subjective: The patient was admitted with over volume, deconditioning, fracture. The patient was tr eated and transferred to rehab for physical therapy. The patient had dialysis yesterday. Physical Examination: Vital Signs: When I saw the patient; blood pressure 149/67, pulse of 88. Chest: Clear to auscultation. Heart: S1, S2. Regular. Abdomen: Soft, nontender. Extremity: No edema. Neurologic: Alert. No focality. Laboratory Data: H and H 9.4/26.9, the patient received 2 units of blood transfusion before. Sodium 135, potassium 4.7, bicarb 31, BUN 66, creatinine 5.9, calcium 9.6. Current Medications: The patient on include; 1.Aspirin. 2.Nystatin. 3.Epogen. 4.Carvedilol. 5.Atorvastatin. 6.Zofran. 7.Insulin. 8.Bisacodyl. 9.Melatonin. Assessment And Plan: 1.End-stage renal disease with over volume. We will continue dialysis per schedule. The patient is going to be scheduled for dialysis tomorrow. 2.Hypertension, controlled, optimal. We will utilize blood pressure for more ultrafiltration. 3.Anemia secondary possible to gastrointestinal bleed, status post transfusion. We will continue ES A. 4.Deconditioning. Continue PT/OT. 5.Diabetes as by primary. AL/BILLY Voice ID: [id number] Report ID: [id number]
--- NOTE | 2022-01-20 19:45 | R.PN ---
PROGRESS NOTES ENCOUNTER DATE AND TIME: 01/20/2022 19:42 (CDT) NAME ALLIE CALVO DATE OF : 1945 DATE OF ADMISSION: 01/12/2022 13:51 (CDT) J18.9 Pneumonia, unspecified organismCHIEF COMPLAINT: Pneumonia and debility SUBJECTIVE: Pt denied any Shortness of Breath. Pt denied any depression. Hgb increased to 9.4 from 8.8. Fraud Examiner is 5.97. Patient has ESRD on HD and is followed by the renal servi ce. He will receive 2 units of blood with dialysis. Prealbumin 9.6. Ambulated 15' with minimum assistance using a rolling walker. Blood sugars 250 to 255. VITAL SIGNS Temperature: 98.0 F SBP/DBP: 149/67 Pulse: 79 Resp: 16 MEDICATION ALLERGIES: No Known Drug Allergies (NKDA) ENVIRONMENTAL ALLERGIES: - Substance Allergies None Known - Other Allergies None Known NURSING: - Shower allowing shower - Lab Results blood Sugar Check ACHS PRECAUTIONS: - Fall Precaution Bed alarm TABS alarm Wheel chair alarm - Incontinence Bowel Incontinence - DVT Risk due to restricted mobility and age - Skin Breakdown Risk due to restricted mobility and age - Weight Bearing Precaution WBAT left LE ACTIVITIES OOB only with supervision THERAPIES: - Dietary and Nutrition Adequate Nutrition. Nutritional Education. Nutritional Supplements. - Occupational Therapy Cognitive Retraining. Patient needs Occupational Therapy for a daily minimum of 1.5 hours at least 5 out of 7 days, to improve Activities of Daily Living, including: Eating, Grooming, Bathing, Dressing, Toileting, Toilet Transfers, Community Reintegration, Higher functional activities, Adaptive Equipme nt, Splinting, Household Tasks, and Other activities as determined. Visual Perceptual Training. - Physical Therapy Patient needs Physical Therapy for a daily minimum of 1.5 hours at least 5 out of 7 days, to improve: Mobility, Strengthening, Transfers, Stretching, ROM, Endurance, Ability to manage stairs, Gait, and Balance. PHYSICAL EXAM - Gen Alert and awake Lying in bed No apparent distress Oriented to: person, time, and place - Skin No skin breakdown. No abnormalities - Eyes No abnormalities - ENMT No abnormalities - Neck No abnormalities - CVS RRR - Chest No abnormalities - Resp Clear to auscultation - Abd + bowel sounds - GI Soft Deferred - No abnormalities - Ext Mild bilateral lower extremity edema. - MSK 4/5 weakness in both lower extremities. - Neuro No focal deficits - Psych No abnormalities ASSESSMENT: Pt. is a 76 yo male.On 01/07/2022 he was admitted to [facility] with diagnosis J1 8.9 Pneumonia, unspecified organism.His impairment category is Pulmonary Disorders 10 - Other Pulmon renate Disorders (10.9).Pre-morbidly, Pt. was independent/mod-I in Locomotion and Self-Care; and he had good Safety Awareness, Balance, Transfers Control, Endurance, and Sphincter Control.Currently, he has deficits of Locomotion, Self-Care, Endurance, Sphincter Control, Transfers Control, and Balance.Pt. is now referred to [facility] for acute in-patient rehabilitation in order to maximize patient's functional independence in activities of daily living, strength, ROM, and mobility .- Rehab Goal Patient has realistic goal of being discharged at assistance level 6-Kip to reside at Home with Fam macarena/Relatives. MDM/PLAN: - Physical Therapy Inability to transfer - to improve, our physical therapists will perform initial evaluation of pt's status upon admission and devise an individualized program for Bed mobility Need for home safety evaluation - to improve, our physical therapists will perform initial evaluatio n of pt's status upon admission and devise an individualized program for Home Evaluation Need in caregiver upon discharge - to improve, our physical therapists will perform initial evaluati on of pt's status upon admission and devise an individualized program for Caregiver Training New precaution - to improve, our physical therapists will perform initial evaluation of pt's status upon admission and devise an individualized program for Patient precaution education Edema - to improve, our physical therapists will perform initial evaluation of pt's status upon admi ssion and devise an individualized program for Elevation Training, and Lymphedema Therapy Poor balance - to improve, our physical therapists will perform initial evaluation of pt's status up on admission and devise an individualized program for Balance Training Poor endurance - to improve, our physical therapists will perform initial evaluation of pt's status upon admission and devise an individualized program for Endurance Training Achieving independence - to improve, our physical therapists will perform initial evaluation of pt's status upon admission and devise an individualized program for Community Reintegration Activities - Occupational Therapy ADL deficits - to improve, our occupation therapists will perform initial evaluation of pt's status upon admission and devise an individualized program for Bathing, Bed mobility, Community Reintegratio n, Cooking, Dressing, Eating, Fine Motor Skills, Grooming, Homemaking, Kitchen Mobility, Laundry, Pat ient Education, Safety Awareness, Splinting - Positioning, Transfers(Toilet, Tub, Shower), and Wheel Chair Management Need for animal caregiver - to improve, our occupation therapists will perform initial evaluation of pt's status upon admission and devise an individualized program for Caregiver Training - Other See attached MAR (Medication Administration Record) - Diet Type Continue Regular - Diet - Liquid Texture Continue Regular - Tube Feed Continue N/A - Incontinence Bowel Incontinence - Lab Results blood Sugar Check ACHS - DVT Risk due to restricted mobility and age - Skin Breakdown Risk due to restricted mobility and age - Weight Bearing Precaution WBAT left LE - Fall Precaution Bed alarm TABS alarm Wheel chair alarm - Diet - Solid Texture Continue Regular - Shower allowing shower FUNCTIONAL STATUS: UPDATED AT WEEKLY TEAM CONFERENCE - Bladder Same accident frequency: 7-Ind - No accidents in the past 7 days - Bowel Same accident frequency: 7-Ind - No accidents in the past 7 days - Walking Same score based on distance walked: 0(N/A) Same score based on distance walked: 1(<=50ft) - Wheelchair Same score based on distance traveled: 0(N/A) FUNCTIONAL STATUS: - Self-Care A. Eating sup B. Grooming Kip C. Bathing Génesis D. Dressing - Upper Génesis E. Dressing - Lower modA F. Toileting Génesis - Sphincter Control G. Bladder control maxA H. Bowel control Kip - Transfers Control I. Bed/Chair/Wheelchair Génesis J. Toilet Génesis K. Tub/Shower modA - Locomotion L. Walk/Wheelchair (B) modA M. Stairs ADNO - Communication N. Comprehension (B) Génesis O. Expression (B) Génesis - Social Cognition P. Social Interaction sup Q. Problem Solving sup R. Memory sup - Endurance Poor - Balance Poor - Safety Awareness Poor QI SCORES: - Self-Care A. Eating 05-Setup or clean-up assistance B. Oral hygiene 05-Setup or clean-up assistance C. Toileting hygiene 03-Partial/moderate assistance E. Shower/bathe self 03-Partial/moderate assistance F. Upper body dressing 05-Setup or clean-up assistance G. Lower body dressing 03-Partial/moderate assistance H. Putting on/taking off footwear 03-Partial/moderate assistance - Mobility A. Roll left and right 04-Supervision or touching assistance B. Sit to lying 04-Supervision or touching assistance C. Lying to sitting on side of bed 04-Supervision or touching assistance D. Sit to stand 04-Supervision or touching assistance E. Chair/eru-xe-uywur transfer 04-Supervision or touching assistance F. Toilet transfer 04-Supervision or touching assistance G. Car transfer 88-Not attempted due to medical condition or safety concerns I. Walk 10 feet 04-Supervision or touching assistance J. Walk 50 feet with two turns 88-Not attempted due to medical condition or safety concerns K. Walk 150 feet 88-Not attempted due to medical condition or safety concerns L. Walking 10 feet on uneven surfaces 88-Not attempted due to medical condition or safety concerns M. 1 step (curb) 88-Not attempted due to medical condition or safety concerns N. 4 steps 88-Not attempted due to medical condition or safety concerns O. 12 steps 88-Not attempted due to medical condition or safety concerns P. Picking up object 88-Not attempted due to medical condition or safety concerns R. Wheel 50 feet with two turns 09-Not applicable S. Wheel 150 feet 09-Not applicable - Bladder and Bowel Bladder continence 2-Incontinent less than daily Bowel continence 3-Always incontinent - Endurance Good - Balance Good - Safety Awareness Good CURRENT FUNC. DEFICITS: Self-Care and Mobility SIGNATURE PANEL: (CDT)
[2022-01-20] MEDS: ATORVASTATIN 40 MG TAB PO SCH (20:00)
[2022-01-20] MEDS: predniSONE 10 MG TAB PO SCH (20:00)
[2022-01-20] MEDS: NEPRO SHAKE 237 ML CAN PO SCH (20:01)
[2022-01-21] MEDS: ALBUTEROL 2.5 MG/3 ML NEB SOL IH SCH ×4 (02:00→20:35)
--- NOTE | 2022-01-21 07:13 | RAD REPORT ---
EXAM DESCRIPTION: RAD - Chest Single View - 01/21/2022 5:38 am CLINICAL HISTORY: Pneumonia COMPARISON: Decubitus films 01/18/2022, CT chest 01/17/2022, portable chest 01/17/2022 TECHNIQUE: AP portable chest image was obtained 01/21/2022 5:38 am . FINDINGS: Right hemithorax volume loss with pleural and parenchymal opacification showing no improve ment from comparison. Stable, prominent interstitial markings seen in the left lung field. No new lef t-side finding. Trachea is in the midline. Cardiomegaly is present. No abnormal vascular engorgement. No pneumothorax . No acute bony abnormality seen. No acute aortic findings suspected. IMPRESSION: Stable chest as detailed.
[2022-01-21] MEDS: PANTOPRAZOLE 40MG TABLET PO SCH (07:20)
[2022-01-21] MEDS: HEPARIN 5000 UNIT/ML 1 ML VIAL SQ SCH ×2 (07:30→19:45)
[2022-01-21] MEDS: AMINO ACIDS/PROTEIN HYDROLYS 30 ML LIQUID.PKT PO SCH ×2 (08:00→19:41)
[2022-01-21] MEDS: [UNRECOGNIZED DRUG - OTHER] PO SCH (08:00)
[2022-01-21 08:07] LABS: Absolute Lymphocytes (CBC) 0.5 K/uL (0.7-4.9); Lymphocytes % 6.5 % (15.3-44.8); MCV 99.5 fL (80-100); MPV 8.3 fL (7.6-11.3); RBC Red Blood Cell Count 2.51 M/uL (4.33-5.43)
[2022-01-21 08:20] LABS: Albumin 2.3 g/dL (3.4-5.0); Phosphorus 4.6 mg/dL (2.5-4.9); Potassium 4.8 mmol/L (3.5-5.1)
[2022-01-21] MEDS: INSULIN -REGULAR HUMAN 50 UNIT/0.5 ML ML SQ SCH ×4 (08:52→19:39)
[2022-01-21] MEDS: INSULIN GLARGINE 100 UNIT/ML SQ SCH ×2 (08:53→19:40)
[2022-01-21] MEDS: CITALOPRAM 10 MG TABLET PO SCH (08:54)
[2022-01-21] MEDS: LIDOCAINE 4% PATCH TOP SCH (08:54)
[2022-01-21] MEDS: predniSONE 10 MG TAB PO SCH ×2 (08:54→19:40)
[2022-01-21] MEDS: ASPIRIN EC 81 MG TAB PO SCH (08:54)
[2022-01-21] MEDS: carvediloL 3.125 MG TAB PO SCH (09:13)
[2022-01-21 09:34] LABS: Anisocytosis 1+; Blood Morphology Comment NOTED (NOT SEEN); Macrocytosis 1+; Ovalocytes SLIGHT; Platelet Estimate ADEQ; Poikilocytosis SLIGHT; Teardrop Cell FEW; White Blood Cell Scan OK (OK)
[2022-01-21] MEDS: NYSTATIN PWDR 100000 UNIT/GM TOP SCH ×2 (10:21→19:40)
--- NOTE | 2022-01-21 11:47 | P.PN ---
Subjective Date of Service: 01/21/22 Chief Complaint: Opacification in the right hemithorax Subjective: Improving (Patient is improving steadily short of breath claims that he has minimal hemoptysis) Review of Systems General: Weakness Respiratory: Shortness of Breath Physical Examination - Vital Signs Temperature: 97.6 F Blood Pressure: 166/85 Pulse: 85 Respirations: 18 Pulse Ox (%): 99 - Physical Exam General: Alert, In no apparent distress, Oriented x3 Respiratory: Clear to auscultation bilaterally Cardiovascular: No edema, Regular rate/rhythm - Studies Laboratory Data (last 24 hrs) 01/21/22 07:51: WBC 7.40, Hgb 8.5 L, Hct 25.0 L, Plt Count 185 01/21/22 07:51: Sodium 136, Potassium 4.8, BUN 64 H, Creatinine 5.46 H*, Glucose 305 H, Phosphorus 4.6 Microbiology Data (last 24 hrs): 01/19/22 13:50 Sputum Sputum Gram Stain - Final Assessment And Plan - Current Problems (Diagnosis) (1) Pneumonia Current Visit: Yes Status: Acute Plan: Chest x-ray is still shows opacification of the right hemithorax is no evidence of active sepsis patient is on low-dose prednisone I ordered a CT scan of the chest without contrast so far sputum culture is negative White count is normal blood pressure elevated no fever according to the therapist patient is improving he appears to be less congested Qualifiers: Pneumonia type: due to unspecified organism Laterality: right
[2022-01-21] MEDS: OCUVITE (VIT A,C & E/LUTEIN/MINERAL) TABLET PO SCH (12:03)
[2022-01-21] MEDS: MULTIVIT W/ MINERAL TAB PO SCH (12:03)
[2022-01-21] MEDS: NEPRO SHAKE 237 ML CAN PO SCH ×2 (12:04→19:41)
--- NOTE | 2022-01-21 13:51 | RAD REPORT ---
EXAM DESCRIPTION: CT - Thorax Wo Con - 01/21/2022 1:32 pm CLINICAL HISTORY: None resolving pneumonia COMPARISON: [facility] Con dated 01/09/2022; [facility] Con dated 05/18/2018; [facility] Con dated 2015; [facility] Con dated 09/08/2015; CT-CHEST WITHOUT CONTRAST dated 01/17/2022 FINDINGS: Chest Wall: No suspicious thyroid nodules or pathologic lymphadenopathy. Lungs: Persistent consolidative airspace disease in the right upper lobe with air bronchograms. Mild bronchiectasis in the lingula. Airspace disease in the right lower lobe likely a combination of conso lidation and atelectasis. Pleura: Small to moderate right pleural effusion, a portion of which may be loculated. Small left eff usion. Mediastinum/yong: Chronically enlarged left hilar lymph node is unchanged since 2016. Moderate hiatal hernia. Pulmonary arteries/Aorta: Limited evaluation without contrast. No aortic aneurysm. Enlarged main pulm onary artery suggesting pulmonary artery hypertension. Heart: No significant pericardial effusion. Cardiomegaly. Multi-vessel coronary artery disease. Upper abdomen: Ascites is present in the upper abdomen. Bones: No acute abnormality. All CT scans are performed using dose optimization technique as appropriate and may include automated exposure control or mA/KV adjustment according to patient size. IMPRESSION: Minimal change in the dense right upper and to a lesser extent right lower lobe consolid ations with air bronchograms. The right-sided pleural effusion is slightly larger. Small left effusio n and ascites again noted. The underlying etiology of the consolidation is unclear and could be infec tious, inflammatory, or neoplastic.
--- NOTE | 2022-01-21 17:32 | R.PN ---
PROGRESS NOTES ENCOUNTER DATE AND TIME: 01/21/2022 17:25 (CDT) NAME ALLIE CALVO DATE OF : 1945 DATE OF ADMISSION: 01/12/2022 13:51 (CDT) J18.9 Pneumonia, unspecified organismCHIEF COMPLAINT: Pneumonia and debility SUBJECTIVE: Pt denied any Shortness of Breath. Pt denied any depression. Hgb decreased to 8.5 from 9.4. 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 Patient has ESRD on HD and is followed by the renal servi ce. He received 2 units of blood with dialysis. Prealbumin 9.6. Ambulated 137' with contact guard assistance using a rolling walker. Self-propelled wheelchair 250' w ith standby assistance. Blood sugars 244 to 305. Glargine insulin increased to 20 units bid. He reports dark stools and requires a GI work-up to rule bleeding. VITAL SIGNS Temperature: 97.6 F SBP/DBP: 166/85 Pulse: 85 Resp: 16 MEDICATION ALLERGIES: No Known Drug Allergies (NKDA) ENVIRONMENTAL ALLERGIES: - Substance Allergies None Known - Other Allergies None Known NURSING: - Shower allowing shower - Lab Results blood Sugar Check ACHS PRECAUTIONS: - Fall Precaution Bed alarm TABS alarm Wheel chair alarm - Incontinence Bowel Incontinence - DVT Risk due to restricted mobility and age - Skin Breakdown Risk due to restricted mobility and age - Weight Bearing Precaution WBAT left LE ACTIVITIES OOB only with supervision THERAPIES: - Dietary and Nutrition Adequate Nutrition. Nutritional Education. Nutritional Supplements. - Occupational Therapy Cognitive Retraining. Patient needs Occupational Therapy for a daily minimum of 1.5 hours at least 5 out of 7 days, to improve Activities of Daily Living, including: Eating, Grooming, Bathing, Dressing, Toileting, Toilet Transfers, Community Reintegration, Higher functional activities, Adaptive Equipme nt, Splinting, Household Tasks, and Other activities as determined. Visual Perceptual Training. - Physical Therapy Patient needs Physical Therapy for a daily minimum of 1.5 hours at least 5 out of 7 days, to improve: Mobility, Strengthening, Transfers, Stretching, ROM, Endurance, Ability to manage stairs, Gait, and Balance. PHYSICAL EXAM - Gen Alert and awake Lying in bed No apparent distress Oriented to: person, time, and place - Skin No skin breakdown. No abnormalities - Eyes No abnormalities - ENMT No abnormalities - Neck No abnormalities - CVS RRR - Chest No abnormalities - Resp Clear to auscultation - Abd + bowel sounds - GI Soft Deferred - No abnormalities - Ext Mild bilateral lower extremity edema. - MSK 4/5 weakness in both lower extremities. - Neuro No focal deficits - Psych No abnormalities ASSESSMENT: Pt. is a 76 yo male.On 01/07/2022 he was admitted to [facility] with diagnosis J1 8.9 Pneumonia, unspecified organism.His impairment category is Pulmonary Disorders 10 - Other Pulmon renate Disorders (10.9).Pre-morbidly, Pt. was independent/mod-I in Locomotion and Self-Care; and he had good Safety Awareness, Balance, Transfers Control, Endurance, and Sphincter Control.Currently, he has deficits of Locomotion, Self-Care, Endurance, Sphincter Control, Transfers Control, and Balance.Pt. is now referred to [facility] for acute in-patient rehabilitation in order to maximize patient's functional independence in activities of daily living, strength, ROM, and mobility .- Rehab Goal Patient has realistic goal of being discharged at assistance level 6-Kip to reside at Home with Fam macarena/Relatives. MDM/PLAN: - Physical Therapy Inability to transfer - to improve, our physical therapists will perform initial evaluation of pt's status upon admission and devise an individualized program for Bed mobility Need for home safety evaluation - to improve, our physical therapists will perform initial evaluatio n of pt's status upon admission and devise an individualized program for Home Evaluation Need in caregiver upon discharge - to improve, our physical therapists will perform initial evaluati on of pt's status upon admission and devise an individualized program for Caregiver Training New precaution - to improve, our physical therapists will perform initial evaluation of pt's status upon admission and devise an individualized program for Patient precaution education Edema - to improve, our physical therapists will perform initial evaluation of pt's status upon admi ssion and devise an individualized program for Elevation Training, and Lymphedema Therapy Poor balance - to improve, our physical therapists will perform initial evaluation of pt's status up on admission and devise an individualized program for Balance Training Poor endurance - to improve, our physical therapists will perform initial evaluation of pt's status upon admission and devise an individualized program for Endurance Training Achieving independence - to improve, our physical therapists will perform initial evaluation of pt's status upon admission and devise an individualized program for Community Reintegration Activities - Occupational Therapy ADL deficits - to improve, our occupation therapists will perform initial evaluation of pt's status upon admission and devise an individualized program for Bathing, Bed mobility, Community Reintegratio n, Cooking, Dressing, Eating, Fine Motor Skills, Grooming, Homemaking, Kitchen Mobility, Laundry, Pat ient Education, Safety Awareness, Splinting - Positioning, Transfers(Toilet, Tub, Shower), and Wheel Chair Management Need for urgent care technician - to improve, our occupation therapists will perform initial evaluation of pt's status upon admission and devise an individualized program for Caregiver Training - Other See attached MAR (Medication Administration Record) - Diet Type Continue Regular - Diet - Liquid Texture Continue Regular - Tube Feed Continue N/A - Incontinence Bowel Incontinence - Lab Results blood Sugar Check ACHS - DVT Risk due to restricted mobility and age - Skin Breakdown Risk due to restricted mobility and age - Weight Bearing Precaution WBAT left LE - Fall Precaution Bed alarm TABS alarm Wheel chair alarm - Diet - Solid Texture Continue Regular - Shower allowing shower FUNCTIONAL STATUS: UPDATED AT WEEKLY TEAM CONFERENCE - Bladder Same accident frequency: 7-Ind - No accidents in the past 7 days - Bowel Same accident frequency: 7-Ind - No accidents in the past 7 days - Walking Same score based on distance walked: 0(N/A) Same score based on distance walked: 1(<=50ft) - Wheelchair Same score based on distance traveled: 0(N/A) FUNCTIONAL STATUS: - Self-Care A. Eating sup B. Grooming Kip C. Bathing Génesis D. Dressing - Upper Génesis E. Dressing - Lower modA F. Toileting Génesis - Sphincter Control G. Bladder control maxA H. Bowel control Kip - Transfers Control I. Bed/Chair/Wheelchair Génesis J. Toilet Génesis K. Tub/Shower modA - Locomotion L. Walk/Wheelchair (B) modA M. Stairs ADNO - Communication N. Comprehension (B) Génesis O. Expression (B) Génesis - Social Cognition P. Social Interaction sup Q. Problem Solving sup R. Memory sup - Endurance Poor - Balance Poor - Safety Awareness Poor QI SCORES: - Self-Care A. Eating 05-Setup or clean-up assistance B. Oral hygiene 05-Setup or clean-up assistance C. Toileting hygiene 03-Partial/moderate assistance E. Shower/bathe self 03-Partial/moderate assistance F. Upper body dressing 05-Setup or clean-up assistance G. Lower body dressing 03-Partial/moderate assistance H. Putting on/taking off footwear 03-Partial/moderate assistance - Mobility A. Roll left and right 04-Supervision or touching assistance B. Sit to lying 04-Supervision or touching assistance C. Lying to sitting on side of bed 04-Supervision or touching assistance D. Sit to stand 04-Supervision or touching assistance E. Chair/[id number]-qozng transfer 04-Supervision or touching assistance F. Toilet transfer 04-Supervision or touching assistance G. Car transfer 88-Not attempted due to medical condition or safety concerns I. Walk 10 feet 04-Supervision or touching assistance J. Walk 50 feet with two turns 88-Not attempted due to medical condition or safety concerns K. Walk 150 feet 88-Not attempted due to medical condition or safety concerns L. Walking 10 feet on uneven surfaces 88-Not attempted due to medical condition or safety concerns M. 1 step (curb) 88-Not attempted due to medical condition or safety concerns N. 4 steps 88-Not attempted due to medical condition or safety concerns O. 12 steps 88-Not attempted due to medical condition or safety concerns P. Picking up object 88-Not attempted due to medical condition or safety concerns R. Wheel 50 feet with two turns 09-Not applicable S. Wheel 150 feet 09-Not applicable - Bladder and Bowel Bladder continence 2-Incontinent less than daily Bowel continence 3-Always incontinent - Endurance Good - Balance Good - Safety Awareness Good CURRENT FUNC. DEFICITS: Self-Care and Mobility SIGNATURE PANEL: (CDT)
[2022-01-21] MEDS: ATORVASTATIN 40 MG TAB PO SCH (19:40)
[2022-01-22] MEDS: ALBUTEROL 2.5 MG/3 ML NEB SOL IH SCH ×4 (03:10→19:25)
[2022-01-22 04:36] LABS: Absolute Lymphocytes (CBC) 0.4 K/uL (0.7-4.9); Hematocrit 25.8 % (39.6-49.0); Lymphocytes % 5.7 % (15.3-44.8); MCV 99.8 fL (80-100); MPV 8.1 fL (7.6-11.3); RBC Red Blood Cell Count 2.58 M/uL (4.33-5.43)
[2022-01-22 04:49] LABS: Albumin 2.4 g/dL (3.4-5.0); Potassium 4.5 mmol/L (3.5-5.1); Prealbumin 14.3 mg/dL (20-40)
[2022-01-22] MEDS: LIDOCAINE 4% PATCH TOP SCH (07:15)
[2022-01-22] MEDS: PANTOPRAZOLE 40MG TABLET PO SCH (07:15)
[2022-01-22] MEDS: INSULIN GLARGINE 100 UNIT/ML SQ SCH ×2 (07:36→20:43)
[2022-01-22] MEDS: INSULIN -REGULAR HUMAN 50 UNIT/0.5 ML ML SQ SCH ×4 (07:36→20:43)
[2022-01-22] MEDS: NYSTATIN PWDR 100000 UNIT/GM TOP SCH ×2 (07:36→20:44)
[2022-01-22] MEDS: carvediloL 3.125 MG TAB PO SCH (07:37)
[2022-01-22] MEDS: CITALOPRAM 10 MG TABLET PO SCH (07:37)
[2022-01-22] MEDS: [UNRECOGNIZED DRUG - OTHER] PO SCH (07:38)
[2022-01-22] MEDS: ASPIRIN EC 81 MG TAB PO SCH (07:38)
[2022-01-22] MEDS: predniSONE 10 MG TAB PO SCH ×2 (07:38→20:44)
[2022-01-22] MEDS: NEPRO SHAKE 237 ML CAN PO SCH ×2 (07:39→20:44)
[2022-01-22] MEDS: AMINO ACIDS/PROTEIN HYDROLYS 30 ML LIQUID.PKT PO SCH ×2 (07:39→20:44)
[2022-01-22] MEDS: HEPARIN 5000 UNIT/ML 1 ML VIAL SQ SCH ×2 (07:49→20:20)
[2022-01-22] MEDS: MULTIVIT W/ MINERAL TAB PO SCH (11:59)
[2022-01-22] MEDS: OCUVITE (VIT A,C & E/LUTEIN/MINERAL) TABLET PO SCH (11:59)
--- NOTE | 2022-01-22 12:59 | R.PN ---
PROGRESS NOTES ENCOUNTER DATE AND TIME: 01/22/2022 12:53 (CDT) NAME ALLIE CALVO DATE OF : 1945 DATE OF ADMISSION: 01/12/2022 13:51 (CDT) J18.9 Pneumonia, unspecified organismCHIEF COMPLAINT: Pneumonia and debility SUBJECTIVE: Pt denied any Shortness of Breath. Pt denied any depression. Hgb decreased to 8.6 from 9.4. 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 Patient has ESRD on HD and is followed by [facility]. He received 2 units of blood with dialysis. Prealbumin 14.3. Blood sugars 244 to 305. Glargine insulin increased to 20 units bid. He reports dark stools and requires a GI work-up to rule bleeding. Chest CT today shows minimal change in right upper and lower lobe consolidations and right pleural ef fusion is larger. Either infectious, inflammatory or neoplastic. Needs further evaluation. Therapeutic exercises done with supervision. VITAL SIGNS Temperature: 97.8 F SBP/DBP: 139/61 Pulse: 86 Resp: 16 MEDICATION ALLERGIES: No Known Drug Allergies (NKDA) ENVIRONMENTAL ALLERGIES: - Substance Allergies None Known - Other Allergies None Known NURSING: - Shower allowing shower - Lab Results blood Sugar Check ACHS PRECAUTIONS: - Fall Precaution Bed alarm TABS alarm Wheel chair alarm - Incontinence Bowel Incontinence - DVT Risk due to restricted mobility and age - Skin Breakdown Risk due to restricted mobility and age - Weight Bearing Precaution WBAT left LE ACTIVITIES OOB only with supervision THERAPIES: - Dietary and Nutrition Adequate Nutrition. Nutritional Education. Nutritional Supplements. - Occupational Therapy Cognitive Retraining. Patient needs Occupational Therapy for a daily minimum of 1.5 hours at least 5 out of 7 days, to improve Activities of Daily Living, including: Eating, Grooming, Bathing, Dressing, Toileting, Toilet Transfers, Community Reintegration, Higher functional activities, Adaptive Equipme nt, Splinting, Household Tasks, and Other activities as determined. Visual Perceptual Training. - Physical Therapy Patient needs Physical Therapy for a daily minimum of 1.5 hours at least 5 out of 7 days, to improve: Mobility, Strengthening, Transfers, Stretching, ROM, Endurance, Ability to manage stairs, Gait, and Balance. PHYSICAL EXAM - Gen Alert and awake Lying in bed No apparent distress Oriented to: person, time, and place - Skin No skin breakdown. No abnormalities - Eyes No abnormalities - ENMT No abnormalities - Neck No abnormalities - CVS RRR - Chest No abnormalities - Resp Clear to auscultation - Abd + bowel sounds - GI Soft Deferred - No abnormalities - Ext Mild bilateral lower extremity edema. - MSK 4/5 weakness in both lower extremities. - Neuro No focal deficits - Psych No abnormalities ASSESSMENT: Pt. is a 76 yo male.On 01/07/2022 he was admitted to [facility] with diagnosis J1 8.9 Pneumonia, unspecified organism.His impairment category is Pulmonary Disorders 10 - Other Pulmon renate Disorders (10.9).Pre-morbidly, Pt. was independent/mod-I in Locomotion and Self-Care; and he had good Safety Awareness, Balance, Transfers Control, Endurance, and Sphincter Control.Currently, he has deficits of Locomotion, Self-Care, Endurance, Sphincter Control, Transfers Control, and Balance.Pt. is now referred to [facility] for acute in-patient rehabilitation in order to maximize patient's functional independence in activities of daily living, strength, ROM, and mobility .- Rehab Goal Patient has realistic goal of being discharged at assistance level 6-Kip to reside at Home with Fam macarena/Relatives. MDM/PLAN: - Physical Therapy Inability to transfer - to improve, our physical therapists will perform initial evaluation of pt's status upon admission and devise an individualized program for Bed mobility Need for home safety evaluation - to improve, our physical therapists will perform initial evaluatio n of pt's status upon admission and devise an individualized program for Home Evaluation Need in caregiver upon discharge - to improve, our physical therapists will perform initial evaluati on of pt's status upon admission and devise an individualized program for Caregiver Training New precaution - to improve, our physical therapists will perform initial evaluation of pt's status upon admission and devise an individualized program for Patient precaution education Edema - to improve, our physical therapists will perform initial evaluation of pt's status upon admi ssion and devise an individualized program for Elevation Training, and Lymphedema Therapy Poor balance - to improve, our physical therapists will perform initial evaluation of pt's status up on admission and devise an individualized program for Balance Training Poor endurance - to improve, our physical therapists will perform initial evaluation of pt's status upon admission and devise an individualized program for Endurance Training Achieving independence - to improve, our physical therapists will perform initial evaluation of pt's status upon admission and devise an individualized program for Community Reintegration Activities - Occupational Therapy ADL deficits - to improve, our occupation therapists will perform initial evaluation of pt's status upon admission and devise an individualized program for Bathing, Bed mobility, Community Reintegratio n, Cooking, Dressing, Eating, Fine Motor Skills, Grooming, Homemaking, Kitchen Mobility, Laundry, Pat ient Education, Safety Awareness, Splinting - Positioning, Transfers(Toilet, Tub, Shower), and Wheel Chair Management Need for animal care service worker - to improve, our occupation therapists will perform initial evaluation of pt's status upon admission and devise an individualized program for Caregiver Training - Other See attached MAR (Medication Administration Record) - Diet Type Continue Regular - Diet - Liquid Texture Continue Regular - Tube Feed Continue N/A - Incontinence Bowel Incontinence - Lab Results blood Sugar Check ACHS - DVT Risk due to restricted mobility and age - Skin Breakdown Risk due to restricted mobility and age - Weight Bearing Precaution WBAT left LE - Fall Precaution Bed alarm TABS alarm Wheel chair alarm - Diet - Solid Texture Continue Regular - Shower allowing shower FUNCTIONAL STATUS: UPDATED AT WEEKLY TEAM CONFERENCE - Bladder Same accident frequency: 7-Ind - No accidents in the past 7 days - Bowel Same accident frequency: 7-Ind - No accidents in the past 7 days - Walking Same score based on distance walked: 0(N/A) Same score based on distance walked: 1(<=50ft) - Wheelchair Same score based on distance traveled: 0(N/A) FUNCTIONAL STATUS: - Self-Care A. Eating sup B. Grooming Kip C. Bathing Génesis D. Dressing - Upper Génesis E. Dressing - Lower modA F. Toileting Génesis - Sphincter Control G. Bladder control maxA H. Bowel control Kip - Transfers Control I. Bed/Chair/Wheelchair Génesis J. Toilet Génesis K. Tub/Shower modA - Locomotion L. Walk/Wheelchair (B) modA M. Stairs ADNO - Communication N. Comprehension (B) Génesis O. Expression (B) Génesis - Social Cognition P. Social Interaction sup Q. Problem Solving sup R. Memory sup - Endurance Poor - Balance Poor - Safety Awareness Poor QI SCORES: - Self-Care A. Eating 05-Setup or clean-up assistance B. Oral hygiene 05-Setup or clean-up assistance C. Toileting hygiene 03-Partial/moderate assistance E. Shower/bathe self 03-Partial/moderate assistance F. Upper body dressing 05-Setup or clean-up assistance G. Lower body dressing 03-Partial/moderate assistance H. Putting on/taking off footwear 03-Partial/moderate assistance - Mobility A. Roll left and right 04-Supervision or touching assistance B. Sit to lying 04-Supervision or touching assistance C. Lying to sitting on side of bed 04-Supervision or touching assistance D. Sit to stand 04-Supervision or touching assistance E. Chair/rse-sv-ixqug transfer 04-Supervision or touching assistance F. Toilet transfer 04-Supervision or touching assistance G. Car transfer 88-Not attempted due to medical condition or safety concerns I. Walk 10 feet 04-Supervision or touching assistance J. Walk 50 feet with two turns 88-Not attempted due to medical condition or safety concerns K. Walk 150 feet 88-Not attempted due to medical condition or safety concerns L. Walking 10 feet on uneven surfaces 88-Not attempted due to medical condition or safety concerns M. 1 step (curb) 88-Not attempted due to medical condition or safety concerns N. 4 steps 88-Not attempted due to medical condition or safety concerns O. 12 steps 88-Not attempted due to medical condition or safety concerns P. Picking up object 88-Not attempted due to medical condition or safety concerns R. Wheel 50 feet with two turns 09-Not applicable S. Wheel 150 feet 09-Not applicable - Bladder and Bowel Bladder continence 2-Incontinent less than daily Bowel continence 3-Always incontinent - Endurance Good - Balance Good - Safety Awareness Good CURRENT FUNC. DEFICITS: Self-Care and Mobility SIGNATURE PANEL: (CDT)
--- NOTE | 2022-01-22 13:53 | PN ---
Date of Progress Note: 01/22/2022 Subjective: The patient was admitted with foot infection, deconditioning. The patient treated and t ransferred to rehab. The patient doing well. Had anemia, required transfusion. Physical Examination: Vital Signs: Blood pressure 139/61, pulse of 86. Chest: Clear to auscultation. Heart: S1, S2. Regular. Abdomen: Soft, nontender. Extremities: Dressing on the foot. Neurologic: Alert. No focality. Laboratory Data: H and H 8.6/25.8. Sodium 136, potassium 4.5, bicarb 32, BUN 85, BUN 52, creatinine 4.2, calcium 9.8. Current Medications: The patient on include heparin, Epogen, carvedilol 3.25, atorvastatin, pantopra zole, insulin, prednisone, melatonin. Assessment And Plan: 1.End-stage renal disease. We will continue the patient on dialysis. The patient is going to be sc heduled for dialysis. 2.Hypertension, controlled. Continue to utilize blood pressure for more ultrafiltration. 3.Anemia of chronic kidney disease, status post transfusion. Continue LUANNE. 4.Diabetes as by primary. 5.Deconditioning. Continue PT/OT. AL/BILLY Voice ID: [id number] Report ID: [id number]
--- NOTE | 2022-01-22 15:09 | EKG ---
Test Date: 2022-01-22 Test Time: 13:27:25 Flap Curer: ZEFERINO MEASUREMENT RESULTS: Intervals: Rate: 91 [place]: QRSD: 190 QT: 440 QTc: 541 [place]: P: IL: QRS: -81 T: 61 INTERPRETIVE STATEMENTS: Atrial fibrillation with premature ventricular or aberrantly conducted complexes Right bundle branch block Left anterior fascicular block Bifascicular block Abnormal ECG Compared to ECG 01/07/2022 17:50:50 Ventricular premature complex(es) now present Left anterior fascicular block now present Bifascicular block now present Electronically Signed On 01-22-22 15:09:08 CDT by Chico Henriquez
[2022-01-22] MEDS: BENZONATATE 100 MG CAP PO PRN (15:42)
[2022-01-22] MEDS: ATORVASTATIN 40 MG TAB PO SCH (20:47)
[2022-01-23] MEDS: ALBUTEROL 2.5 MG/3 ML NEB SOL IH SCH ×4 (01:10→19:50)
[2022-01-23] MEDS: PANTOPRAZOLE 40MG TABLET PO SCH (06:44)
[2022-01-23] MEDS: BENZONATATE 100 MG CAP PO PRN (06:44)
[2022-01-23] MEDS: carvediloL 3.125 MG TAB PO SCH (06:44)
[2022-01-23] MEDS: HEPARIN 5000 UNIT/ML 1 ML VIAL SQ SCH ×2 (07:20→19:06)
[2022-01-23] MEDS: INSULIN -REGULAR HUMAN 50 UNIT/0.5 ML ML SQ SCH ×4 (07:30→20:27)
[2022-01-23] MEDS: INSULIN GLARGINE 100 UNIT/ML SQ SCH ×2 (07:40→20:26)
[2022-01-23] MEDS: CITALOPRAM 10 MG TABLET PO SCH (07:41)
[2022-01-23] MEDS: predniSONE 10 MG TAB PO SCH ×2 (07:41→20:26)
[2022-01-23] MEDS: NYSTATIN PWDR 100000 UNIT/GM TOP SCH ×2 (07:41→20:25)
[2022-01-23] MEDS: ASPIRIN EC 81 MG TAB PO SCH (07:41)
[2022-01-23] MEDS: AMINO ACIDS/PROTEIN HYDROLYS 30 ML LIQUID.PKT PO SCH ×2 (07:43→20:25)
[2022-01-23] MEDS: NEPRO SHAKE 237 ML CAN PO SCH ×2 (07:43→20:25)
[2022-01-23] MEDS: LIDOCAINE 4% PATCH TOP SCH (07:43)
[2022-01-23] MEDS: [UNRECOGNIZED DRUG - OTHER] PO SCH (08:00)
--- NOTE | 2022-01-23 09:47 | P.RH.PN ---
Estimated Length of Stay: 13 Expected Discharge Date: 01/25/22 Discharge Disposition Plan: Home Family Support: Yes Halfway Goal: Mobility, Transfers, Self Care Vital Signs: Last Vital Signs Temp 98.2 F 01/23/22 06:40 Pulse 86 01/23/22 06:44 Resp 20 01/23/22 06:40 BP 161/83 H 01/23/22 06:44 Pulse Ox 98 01/23/22 06:40 Laboratory: Laboratory Last Values WBC 6.80 K/uL (4.3-10.9) 01/22/22 04:09 RBC 2.58 M/uL (4.33-5.43) L 01/22/22 04:09 Hgb 8.6 g/dL (13.6-17.9) L 01/22/22 04:09 Hct 25.8 % (39.6-49.0) L 01/22/22 04:09 MCV 99.8 fL (80-100) 01/22/22 04:09 MCH 33.4 pg (27.0-35.0) 01/22/22 04:09 MCHC 33.4 g/dL (32.0-36.0) 01/22/22 04:09 RDW 25.2 % (12.1-15.2) H 01/22/22 04:09 Plt Count 198 K/uL (152-406) 01/22/22 04:09 MPV 8.1 fL (7.6-11.3) 01/22/22 04:09 Neutrophils % 87.2 % (41.7-73.7) H 01/22/22 04:09 Lymphocytes % 5.7 % (15.3-44.8) L 01/22/22 04:09 Monocytes % 6.5 % (3.3-12.3) 01/22/22 04:09 Eosinophils % 0.3 % (0-4.4) 01/22/22 04:09 Basophils % 0.3 % (0-1.3) 01/22/22 04:09 Absolute Neutrophils 5.9 K/uL (1.8-8.0) 01/22/22 04:09 Absolute Lymphocytes 0.4 K/uL (0.7-4.9) L 01/22/22 04:09 Absolute Monocytes 0.4 K/uL (0.1-1.3) 01/22/22 04:09 Absolute Eosinophils 0.0 K/uL (0-0.5) 01/22/22 04:09 Absolute Basophils 0.0 K/uL (0-0.5) 01/22/22 04:09 Platelet Estimate Adeq 01/21/22 07:51 Polychromasia 1+ 01/13/22 04:10 Poikilocytosis Slight 01/21/22 07:51 Anisocytosis 1+ 01/21/22 07:51 Macrocytosis 1+ 01/21/22 07:51 Tear Drop Cells Few 01/21/22 07:51 Ovalocytes Slight 01/21/22 07:51 Morphology Comment Noted (NOT SEEN) 01/21/22 07:51 Sodium 136 mmol/L (136-145) 01/22/22 04:09 Potassium 4.5 mmol/L (3.5-5.1) 01/22/22 04:09 Chloride 100 mmol/L (98-107) 01/22/22 04:09 Carbon Dioxide 32 mmol/L (21-32) 01/22/22 04:09 Anion Gap 8.5 mEq/L (5.0-15.0) 01/22/22 04:09 BUN 52 mg/dL (7-18) H 01/22/22 04:09 Creatinine 4.28 mg/dL (0.55-1.3) H D 01/22/22 04:09 Est GFR (CKD-EPI) 14 ml/min (=/>90) L 01/22/22 04:09 Glucose 340 mg/dL (74-106) H 01/22/22 04:09 POC Glucose 161 mg/dL (65-120) H 01/23/22 07:08 Calcium 9.8 mg/dL (8.5-10.1) 01/22/22 04:09 Phosphorus 4.6 mg/dL (2.5-4.9) 01/21/22 07:51 Magnesium 2.0 mg/dL (1.8-2.4) 01/22/22 04:09 Albumin 2.4 g/dL (3.4-5.0) L 01/22/22 04:09 Prealbumin 14.3 mg/dL (20-40) L 01/22/22 04:09 SARS-CoV-2 Rap RNA(RT-PCR) Negative (NEGATIVE) 01/21/22 11:30 Smear Scan Ok (OK) 01/21/22 07:51 ABO/Rh AB POSITIVE 01/15/22 13:11 Solid Phase Ab Screen Negative 01/15/22 13:11 Crossmatch See Detail 01/15/22 13:11 Weight: 176 lb Wound Present: No Closed Surgical Incision Present: No Negative Pressure Wound Therapy Present: No Physician Update: Labs were reviewed. He wants to go home on Wednesday which is his date. He has and needs home oxygen. He is poorly motivated to do any therapy. Bed mobility is min assistance, moderate danuta for transfers and sit to stand. Walked 60 feet with CGA. Wheelchair 250' at SBA. Min danuta for transfers, toileting mod danuta, set up for upper body dressing and grooming. Mooar thick liquids via speech. Functional Improvement: Patient is a relatively new admit to Inpatient rehab, and presents w/ good attitude toward therapy. Patient showed good participation in today's therapy, and completed task w/ improvement. Summary: Patient's care plan and traffic workforce representative goals have been reviewed and revised as necessary. Please see the Rehabilitation Signature page for all necessary signatures.
[2022-01-23] MEDS: MULTIVIT W/ MINERAL TAB PO SCH (11:48)
[2022-01-23] MEDS: OCUVITE (VIT A,C & E/LUTEIN/MINERAL) TABLET PO SCH (11:48)
--- NOTE | 2022-01-23 11:58 | P.PN ---
Subjective Date of Service: 01/23/22 Chief Complaint: Opacification in the right hemithorax Subjective: No new changes Physical Examination - Vital Signs Temperature: 98.2 F Blood Pressure: 161/83 Pulse: 86 Respirations: 20 Pulse Ox (%): 98 - Physical Exam General: In no apparent distress, Other (chronically ill-appearing) HEENT: Atraumatic, Normocephalic Neck: Supple Respiratory: Other (symmetric chest expansion) Cardiovascular: No rubs, No murmurs Gastrointestinal: Soft and benign, No rebound Musculoskeletal: No clubbing Integumentary: No warmth Neurological: Normal tone Urinary: Other (no bladder distention) External genitalia: Deferred Rectal: Deferred - Studies Microbiology Data (last 24 hrs): 01/22/22 07:20 Stool Occult Blood - Final 01/19/22 13:50 Sputum Sputum Gram Stain - Final 01/19/22 13:50 Sputum Culture & Sensitivity - Final Assessment And Plan - Plan 1. End-stage renal disease. HD today moved for tomorrow d/t staffing issue. HD MWF resume next week. 2. Anemia of chronic kidney disease. S/p pRBC transfusion. Continue LUANNE. 3. Hypertension, controlled. Continue current med regimen. 4. Deconditioning. PT/OT. 5. Renal osteodystrophy. Monitor Ca & Phos. 6. DM2. Per primary team.
[2022-01-23] MEDS: ATORVASTATIN 40 MG TAB PO SCH (20:26)
[2022-01-24] MEDS: ALBUTEROL 2.5 MG/3 ML NEB SOL IH SCH ×4 (01:20→20:20)
[2022-01-24] MEDS: INSULIN -REGULAR HUMAN 50 UNIT/0.5 ML ML SQ SCH ×4 (07:30→20:14)
[2022-01-24] MEDS: HEPARIN 5000 UNIT/ML 1 ML VIAL SQ SCH (08:00)
[2022-01-24] MEDS: AMINO ACIDS/PROTEIN HYDROLYS 30 ML LIQUID.PKT PO SCH ×2 (08:00→20:14)
[2022-01-24] MEDS: [UNRECOGNIZED DRUG - OTHER] PO SCH (08:00)
[2022-01-24] MEDS: LIDOCAINE 4% PATCH TOP SCH (08:36)
[2022-01-24] MEDS: carvediloL 3.125 MG TAB PO SCH (08:37)
[2022-01-24] MEDS: NYSTATIN PWDR 100000 UNIT/GM TOP SCH ×2 (08:37→20:13)
[2022-01-24] MEDS: CITALOPRAM 10 MG TABLET PO SCH (08:37)
[2022-01-24] MEDS: predniSONE 10 MG TAB PO SCH ×2 (08:37→20:13)
[2022-01-24] MEDS: PANTOPRAZOLE 40MG TABLET PO SCH (08:38)
[2022-01-24] MEDS: ASPIRIN EC 81 MG TAB PO SCH (08:38)
[2022-01-24] MEDS: INSULIN GLARGINE 100 UNIT/ML SQ SCH ×2 (08:42→20:13)
[2022-01-24] MEDS: NEPRO SHAKE 237 ML CAN PO SCH ×2 (10:42→20:14)
--- NOTE | 2022-01-24 11:00 | RAD REPORT ---
EXAM DESCRIPTION: RAD - Chest Single View - 01/24/2022 10:47 am CLINICAL HISTORY: pneumonia COMPARISON: Chest Single View dated 01/21/2022; Chest Single View dated 01/17/2022; Chest Single View dated 01/14/2022; Chest Single View dated 01/11/2022; Thorax Wo Con dated 01/21/2022 FINDINGS: Lines: None. Lungs: No significant change in aeration of the lungs with right-sided effusion and patchy consolidat ion. Pleural: Right-sided pleural effusion. Cardiac: The heart size is within normal limits. Bones: No acute fractures. Other: IMPRESSION: Similar aeration of the lungs with multifocal consolidation in the right lung and right pleural effusion. The left lung is mostly clear.
[2022-01-24] MEDS: OCUVITE (VIT A,C & E/LUTEIN/MINERAL) TABLET PO SCH (12:51)
[2022-01-24] MEDS: MULTIVIT W/ MINERAL TAB PO SCH (12:51)
[2022-01-24] MEDS: ATORVASTATIN 40 MG TAB PO SCH (20:13)
[2022-01-24] MEDS: ONDANSETRON 4 MG (ODT) TAB PO PRN (21:30)
[2022-01-25] MEDS: ALBUTEROL 2.5 MG/3 ML NEB SOL IH SCH ×4 (01:50→20:05)
[2022-01-25] MEDS: BENZONATATE 100 MG CAP PO PRN (07:07)
[2022-01-25] MEDS: ASPIRIN EC 81 MG TAB PO SCH (07:07)
[2022-01-25] MEDS: PANTOPRAZOLE 40MG TABLET PO SCH (07:07)
[2022-01-25] MEDS: LIDOCAINE 4% PATCH TOP SCH (07:07)
[2022-01-25] MEDS: INSULIN -REGULAR HUMAN 50 UNIT/0.5 ML ML SQ SCH ×4 (07:30→19:35)
--- NOTE | 2022-01-25 07:36 | RAD REPORT ---
EXAM DESCRIPTION: RAD - Chest Single View - 01/25/2022 6:39 am CLINICAL HISTORY: pneumonia COMPARISON: Chest Single View dated 01/24/2022; Chest Single View dated 01/21/2022; Chest Single View dated 01/17/2022; Chest Single View dated 01/14/2022; Chest Pa And Lat (2 Views) dated 08/03/2018; Thorax Wo Con dated 01/21/2022 FINDINGS: Lines: None. Lungs: Multifocal consolidation in the right lung is similar. Aeration in the left mid lung and left lung base is seemingly worsened though the patient is more rotated on this exam. Pleural: Moderate right effusion Cardiac: Similar size configuration. Bones: No acute fractures. Other: IMPRESSION: Apparent worsening aeration of the left lung may be accentuated by patient's rotation. N evertheless, cannot exclude worsening in aeration of the left mid lung and left lung base. The right lung is grossly similar with multifocal consolidation and moderate pleural fluid.
[2022-01-25] MEDS: AMINO ACIDS/PROTEIN HYDROLYS 30 ML LIQUID.PKT PO SCH ×2 (08:00→19:36)
[2022-01-25] MEDS: [UNRECOGNIZED DRUG - OTHER] PO SCH (08:00)
[2022-01-25] MEDS: carvediloL 3.125 MG TAB PO SCH (08:50)
[2022-01-25] MEDS: CITALOPRAM 10 MG TABLET PO SCH (08:50)
[2022-01-25] MEDS: predniSONE 10 MG TAB PO SCH (08:50)
[2022-01-25] MEDS: NYSTATIN PWDR 100000 UNIT/GM TOP SCH ×2 (08:50→19:34)
[2022-01-25] MEDS: INSULIN GLARGINE 100 UNIT/ML SQ SCH ×2 (09:54→19:35)
[2022-01-25] MEDS: NEPRO SHAKE 237 ML CAN PO SCH ×2 (09:55→19:36)
--- NOTE | 2022-01-25 12:14 | P.PN ---
Subjective Date of Service: 01/25/22 Chief Complaint: Right-sided pleural effusion Subjective: Worsening (Patient is not doing well has become more short of breath x-ray worsening he does have a significant right-sided pleural effusion) Review of Systems General: Weakness Respiratory: Shortness of Breath Physical Examination - Vital Signs Temperature: 97.4 F Blood Pressure: 154/85 Pulse: 89 Respirations: 20 Pulse Ox (%): 94 - Physical Exam General: Alert, Moderate distress Respiratory: Diminished (On the right side) Cardiovascular: Regular rate/rhythm, Edema Assessment And Plan - Current Problems (Diagnosis) (1) Pneumonia Current Visit: Yes Status: Acute Plan: Patient still has opacification on the right lung still has consolidation of the right upper lobe the pleural effusion will plan for thoracentesis tomorrow discussed with the patient insert discharge he may also need a bronchoscopy patient has chronic renal failure on hemodialysis vital signs oxygenation satisfactory labs reviewed will reorder labs today discussed with the patient Qualifiers: Pneumonia type: due to unspecified organism Laterality: right
[2022-01-25] MEDS: OCUVITE (VIT A,C & E/LUTEIN/MINERAL) TABLET PO SCH (12:20)
[2022-01-25] MEDS: MULTIVIT W/ MINERAL TAB PO SCH (12:20)
[2022-01-25 13:37] LABS: Absolute Lymphocytes (CBC) 0.5 K/uL (0.7-4.9); Hematocrit 26.3 % (39.6-49.0); Lymphocytes % 6.1 % (15.3-44.8); MCV 98.8 fL (80-100); MPV 7.9 fL (7.6-11.3); RBC Red Blood Cell Count 2.66 M/uL (4.33-5.43)
[2022-01-25 13:38] LABS: Protime INR 1.47
[2022-01-25 13:53] LABS: Albumin 2.7 g/dL (3.4-5.0); Bilirubin Total 1.1 mg/dL (0.2-1.0); Potassium 4.8 mmol/L (3.5-5.1); Protein, Total 6.5 g/dL (6.4-8.2)
--- NOTE | 2022-01-25 14:19 | PN ---
Date of Progress Note: 01/25/2022 Subjective: The patient doing well. No event. The patient receiving dialysis Wednesday, Wednesday, Wednesday. Continued on rehab. Physical Examination: Vital Signs: Blood pressure 154/80, pulse of 89, afebrile. Chest: Decreased entry right base. Heart: S1, S2. Systolic murmur. Abdomen: Soft, nontender. Extremity: Trace edema. Neurologic: Alert. No focality. Laboratory Data: H and H 8.6/25.8. Sodium 136, potassium 4.5, bicarb 32, BUN 52, creatinine 4.2, calcium 9.8. Current Medications: The patient on include; 1. Nystatin. 2. Aspirin. 3. Albuterol. 4. Epogen. 5. Carvedilol 3.125. 6. Atorvastatin 40 mg. 7. Citalopram. 8. Tylenol. 9. Nepro. 10. Pantoprazole. 11. Insulin. Assessment And Plan: 1. End-stage renal disease with over volume. We will continue the patient to be dialyzed Wednesday, Wednesday, Wednesday. We will arrange for the dialysis tomorrow and we will continue to challenge the patient. 2. Hypertension. We will continue to utilize blood pressure for more ultrafiltration. 3. Anemia of chronic kidney disease. Continue LUANNE. 4. Secondary hyperparathyroidism. Continue current binder. 5. Shortness of breath secondary to over volume/pleural effusion. The patient is scheduled for thoracocentesis. We will follow up with Pulmonary. VISHAL Voice ID: [id number] Report ID: [id number] MANJINDER
[2022-01-25 16:50] LABS: Anisocytosis 3+; Blood Morphology Comment NOTED (NOT SEEN); Platelet Estimate ADEQ
[2022-01-25] MEDS: ATORVASTATIN 40 MG TAB PO SCH (19:34)
[2022-01-26] MEDS: ALBUTEROL 2.5 MG/3 ML NEB SOL IH SCH ×4 (01:10→19:35)
[2022-01-26] MEDS: PANTOPRAZOLE 40MG TABLET PO SCH (07:00)
[2022-01-26] MEDS: BENZONATATE 100 MG CAP PO PRN (07:00)
[2022-01-26] MEDS: INSULIN -REGULAR HUMAN 50 UNIT/0.5 ML ML SQ SCH ×4 (07:30→21:00)
[2022-01-26] MEDS: INSULIN GLARGINE 100 UNIT/ML SQ SCH ×2 (07:54→20:00)
[2022-01-26] MEDS: CITALOPRAM 10 MG TABLET PO SCH (07:55)
[2022-01-26] MEDS: ASPIRIN EC 81 MG TAB PO SCH (07:55)
[2022-01-26] MEDS: NYSTATIN PWDR 100000 UNIT/GM TOP SCH ×2 (07:55→19:12)
[2022-01-26] MEDS: carvediloL 3.125 MG TAB PO SCH (07:56)
[2022-01-26] MEDS: NEPRO SHAKE 237 ML CAN PO SCH ×2 (07:57→19:12)
[2022-01-26] MEDS: AMINO ACIDS/PROTEIN HYDROLYS 30 ML LIQUID.PKT PO SCH ×2 (07:57→19:13)
[2022-01-26] MEDS: [UNRECOGNIZED DRUG - OTHER] PO SCH (08:00)
--- NOTE | 2022-01-26 10:10 | RAD REPORT ---
EXAM DESCRIPTION: RAD - Chest Single View - 01/26/2022 10:04 am CLINICAL HISTORY: Status Post Thorocentesis COMPARISON: Chest Single View dated 01/25/2022; Chest Single View dated 01/24/2022; Chest Single View dated 01/21/2022; Chest Single View dated 01/17/2022 FINDINGS: Status post right-sided thoracentesis with improved aeration of the right lung base. There is still loculated fluid along the right upper lung. No pneumothorax. Similar aeration of the left l doreen. IMPRESSION: Status post right-sided thoracentesis with decreased right pleural effusion. No pneumoth orax .
[2022-01-26] MEDS: LIDOCAINE 4% PATCH TOP SCH (10:19)
[2022-01-26 11:03] LABS: Absolute Lymphocytes (CBC) 0.6 K/uL (0.7-4.9); Lymphocytes % 8.2 % (15.3-44.8); MCV 100.8 fL (80-100); MPV 8.1 fL (7.6-11.3); RBC Red Blood Cell Count 2.58 M/uL (4.33-5.43)
--- NOTE | 2022-01-26 11:22 | RAD REPORT ---
EXAM DESCRIPTION: US - Thoracentesis w/ US Guide - 01/26/2022 10:36 am CLINICAL HISTORY: Pleural effusion. R effusion COMPARISON: No comparisons FINDINGS: Preoperative diagnosis: Right pleural effusion Post operative diagnosis: Same Conscious Sedation: None. Estimated blood loss: Minimal Specimens:A small volume of fluid was sent for requested lab studies. The patient was placed in the upright recumbent position and the right chest wall was prepped and yusuf ped in the usual sterile fashion. 1% Lidocaine was infiltrated into the soft tissues for local anest hesia. Under sonographic guidance, a thoracentesis needle and 6 [place] catheter was advanced into th e right pleural space. Approximately 1500 mL yellow fluid was aspirated. Samples were sent to patholo for requested analysis. The patient tolerated the procedure without immediate complication and tra nsferred to the floor in stable condition. IMPRESSION: Successful ultrasound-guided thoracentesis as detailed.
[2022-01-26] MEDS: OCUVITE (VIT A,C & E/LUTEIN/MINERAL) TABLET PO SCH (12:06)
[2022-01-26] MEDS: MULTIVIT W/ MINERAL TAB PO SCH (12:06)
--- NOTE | 2022-01-26 17:51 | R.PN ---
PROGRESS NOTES ENCOUNTER DATE AND TIME: 01/26/2022 17:44 (CDT) NAME ALLIE CALVO DATE OF : 1945 DATE OF ADMISSION: 01/12/2022 13:51 (CDT) J18.9 Pneumonia, unspecified organismCHIEF COMPLAINT: Pneumonia and debility SUBJECTIVE: Pt denied any Shortness of Breath. Pt denied any depression. Hgb decreased to 7.6 from 9.4. WBC 8.7, Rod Hanger is 4.94. Patient has ESRD on HD and is followed by the re nal service. He received 2 units of blood with dialysis. Prealbumin 14.3. Blood sugars 244 to 305. Glargine insulin increased to 20 units bid. He reports dark stools and requires a GI work-up to rule bleeding. Chest CT today shows minimal change in right upper and lower lobe consolidations and right pleural ef fusion is larger. Either infectious, inflammatory or neoplastic. Needs further evaluation. Self-propelled wheelchair 250' with SBA. Thoracentesis done with aspiration of 1500 cc of yellow fluid. Sent to path for evaluation. VITAL SIGNS Temperature: 97.8 F SBP/DBP: 147/69 Pulse: 84 Resp: 16 MEDICATION ALLERGIES: No Known Drug Allergies (NKDA) ENVIRONMENTAL ALLERGIES: - Substance Allergies None Known - Other Allergies None Known NURSING: - Shower allowing shower - Lab Results blood Sugar Check ACHS PRECAUTIONS: - Fall Precaution Bed alarm TABS alarm Wheel chair alarm - Incontinence Bowel Incontinence - DVT Risk due to restricted mobility and age - Skin Breakdown Risk due to restricted mobility and age - Weight Bearing Precaution WBAT left LE ACTIVITIES OOB only with supervision THERAPIES: - Dietary and Nutrition Adequate Nutrition. Nutritional Education. Nutritional Supplements. - Occupational Therapy Cognitive Retraining. Patient needs Occupational Therapy for a daily minimum of 1.5 hours at least 5 out of 7 days, to improve Activities of Daily Living, including: Eating, Grooming, Bathing, Dressing, Toileting, Toilet Transfers, Community Reintegration, Higher functional activities, Adaptive Equipme nt, Splinting, Household Tasks, and Other activities as determined. Visual Perceptual Training. - Physical Therapy Patient needs Physical Therapy for a daily minimum of 1.5 hours at least 5 out of 7 days, to improve: Mobility, Strengthening, Transfers, Stretching, ROM, Endurance, Ability to manage stairs, Gait, and Balance. PHYSICAL EXAM - Gen Alert and awake Lying in bed No apparent distress Oriented to: person, time, and place - Skin No skin breakdown. No abnormalities - Eyes No abnormalities - ENMT No abnormalities - Neck No abnormalities - CVS RRR - Chest No abnormalities - Resp Clear to auscultation - Abd + bowel sounds - GI Soft Deferred - No abnormalities - Ext Mild bilateral lower extremity edema. - MSK 4/5 weakness in both lower extremities. - Neuro No focal deficits - Psych No abnormalities ASSESSMENT: Pt. is a 76 yo male.On 01/07/2022 he was admitted to [facility] with diagnosis J1 8.9 Pneumonia, unspecified organism.His impairment category is Pulmonary Disorders 10 - Other Pulmon renate Disorders (10.9).Pre-morbidly, Pt. was independent/mod-I in Locomotion and Self-Care; and he had good Safety Awareness, Balance, Transfers Control, Endurance, and Sphincter Control.Currently, he has deficits of Locomotion, Self-Care, Endurance, Sphincter Control, Transfers Control, and Balance.Pt. is now referred to [facility] for acute in-patient rehabilitation in order to maximize patient's functional independence in activities of daily living, strength, ROM, and mobility .- Rehab Goal Patient has realistic goal of being discharged at assistance level 6-Kip to reside at Home with Fam macarena/Relatives. MDM/PLAN: - Physical Therapy Inability to transfer - to improve, our physical therapists will perform initial evaluation of pt's status upon admission and devise an individualized program for Bed mobility Need for home safety evaluation - to improve, our physical therapists will perform initial evaluatio n of pt's status upon admission and devise an individualized program for Home Evaluation Need in caregiver upon discharge - to improve, our physical therapists will perform initial evaluati on of pt's status upon admission and devise an individualized program for Caregiver Training New precaution - to improve, our physical therapists will perform initial evaluation of pt's status upon admission and devise an individualized program for Patient precaution education Edema - to improve, our physical therapists will perform initial evaluation of pt's status upon admi ssion and devise an individualized program for Elevation Training, and Lymphedema Therapy Poor balance - to improve, our physical therapists will perform initial evaluation of pt's status up on admission and devise an individualized program for Balance Training Poor endurance - to improve, our physical therapists will perform initial evaluation of pt's status upon admission and devise an individualized program for Endurance Training Achieving independence - to improve, our physical therapists will perform initial evaluation of pt's status upon admission and devise an individualized program for Community Reintegration Activities - Occupational Therapy ADL deficits - to improve, our occupation therapists will perform initial evaluation of pt's status upon admission and devise an individualized program for Bathing, Bed mobility, Community Reintegratio n, Cooking, Dressing, Eating, Fine Motor Skills, Grooming, Homemaking, Kitchen Mobility, Laundry, Pat ient Education, Safety Awareness, Splinting - Positioning, Transfers(Toilet, Tub, Shower), and Wheel Chair Management Need for zoo caretaker - to improve, our occupation therapists will perform initial evaluation of pt's status upon admission and devise an individualized program for Caregiver Training - Other See attached MAR (Medication Administration Record) - Diet Type Continue Regular - Diet - Liquid Texture Continue Regular - Tube Feed Continue N/A - Incontinence Bowel Incontinence - Lab Results blood Sugar Check ACHS - DVT Risk due to restricted mobility and age - Skin Breakdown Risk due to restricted mobility and age - Weight Bearing Precaution WBAT left LE - Fall Precaution Bed alarm TABS alarm Wheel chair alarm - Diet - Solid Texture Continue Regular - Shower allowing shower FUNCTIONAL STATUS: UPDATED AT WEEKLY TEAM CONFERENCE - Bladder Same accident frequency: 7-Ind - No accidents in the past 7 days - Bowel Same accident frequency: 7-Ind - No accidents in the past 7 days - Walking Same score based on distance walked: 0(N/A) Same score based on distance walked: 1(<=50ft) - Wheelchair Same score based on distance traveled: 0(N/A) FUNCTIONAL STATUS: - Self-Care A. Eating sup B. Grooming Kip C. Bathing Génesis D. Dressing - Upper Génesis E. Dressing - Lower modA F. Toileting Génesis - Sphincter Control G. Bladder control maxA H. Bowel control Kip - Transfers Control I. Bed/Chair/Wheelchair Génesis J. Toilet Génesis K. Tub/Shower modA - Locomotion L. Walk/Wheelchair (B) modA M. Stairs ADNO - Communication N. Comprehension (B) Génesis O. Expression (B) Génesis - Social Cognition P. Social Interaction sup Q. Problem Solving sup R. Memory sup - Endurance Poor - Balance Poor - Safety Awareness Poor QI SCORES: - Self-Care A. Eating 05-Setup or clean-up assistance B. Oral hygiene 05-Setup or clean-up assistance C. Toileting hygiene 03-Partial/moderate assistance E. Shower/bathe self 03-Partial/moderate assistance F. Upper body dressing 05-Setup or clean-up assistance G. Lower body dressing 03-Partial/moderate assistance H. Putting on/taking off footwear 03-Partial/moderate assistance - Mobility A. Roll left and right 04-Supervision or touching assistance B. Sit to lying 04-Supervision or touching assistance C. Lying to sitting on side of bed 04-Supervision or touching assistance D. Sit to stand 04-Supervision or touching assistance E. Chair/del-mg-zdwyd transfer 04-Supervision or touching assistance F. Toilet transfer 04-Supervision or touching assistance G. Car transfer 88-Not attempted due to medical condition or safety concerns I. Walk 10 feet 04-Supervision or touching assistance J. Walk 50 feet with two turns 88-Not attempted due to medical condition or safety concerns K. Walk 150 feet 88-Not attempted due to medical condition or safety concerns L. Walking 10 feet on uneven surfaces 88-Not attempted due to medical condition or safety concerns M. 1 step (curb) 88-Not attempted due to medical condition or safety concerns N. 4 steps 88-Not attempted due to medical condition or safety concerns O. 12 steps 88-Not attempted due to medical condition or safety concerns P. Picking up object 88-Not attempted due to medical condition or safety concerns R. Wheel 50 feet with two turns 09-Not applicable S. Wheel 150 feet 09-Not applicable - Bladder and Bowel Bladder continence 2-Incontinent less than daily Bowel continence 3-Always incontinent - Endurance Good - Balance Good - Safety Awareness Good CURRENT FUNC. DEFICITS: Self-Care and Mobility SIGNATURE PANEL: (CDT)
[2022-01-26] MEDS: ATORVASTATIN 40 MG TAB PO SCH (19:12)
--- NOTE | 2022-01-27 00:07 | PN ---
Date of Progress Note: 01/26/2022 Chief Complaint: End-stage renal disease, pleural effusion. History Of Present Illness: Patient underwent thoracentesis. He was treated for pneumonia with anti biotics. He has end-stage renal disease, had dialysis done on Wednesday. Potassium level is 4.8. Nico blake complains of generalized weakness. He was found to have hypoglycemia. P.o. intake is improvin g and blood glucose is stabilizing. Review of Systems: Denies fever or chills. Physical Examination: Lungs: Clear to auscultation bilaterally. Heart: S1, S2. Abdomen: Soft, benign. Extremities: Trace edema. Impression And Plan: 1.End-stage renal disease. Patient will have dialysis tomorrow. 2.Hypertension. Continue blood pressure medication. Advance ultrafiltration as needed. 3.Anemia. 4.Chronic kidney disease. Continue LUANNE. 5.Secondary hyperparathyroidism. Continue binders. CHRISTINA/MODL Voice ID: [id number] Report ID: [id number]
[2022-01-27] MEDS: ALBUTEROL 2.5 MG/3 ML NEB SOL IH SCH ×4 (01:00→20:10)
[2022-01-27] MEDS: INSULIN -REGULAR HUMAN 50 UNIT/0.5 ML ML SQ SCH ×4 (07:01→20:24)
[2022-01-27] MEDS: [UNRECOGNIZED DRUG - OTHER] PO SCH (08:00)
[2022-01-27] MEDS: AMINO ACIDS/PROTEIN HYDROLYS 30 ML LIQUID.PKT PO SCH ×2 (08:00→19:51)
[2022-01-27] MEDS: INSULIN GLARGINE 100 UNIT/ML SQ SCH ×2 (08:00→20:00)
[2022-01-27] MEDS: LIDOCAINE 4% PATCH TOP SCH (09:00)
[2022-01-27] MEDS: CITALOPRAM 10 MG TABLET PO SCH (09:00)
[2022-01-27] MEDS: ASPIRIN EC 81 MG TAB PO SCH (09:00)
[2022-01-27] MEDS: carvediloL 3.125 MG TAB PO SCH (09:01)
[2022-01-27] MEDS: PANTOPRAZOLE 40MG TABLET PO SCH (09:01)
[2022-01-27] MEDS: NYSTATIN PWDR 100000 UNIT/GM TOP SCH ×2 (09:02→19:51)
[2022-01-27] MEDS: NEPRO SHAKE 237 ML CAN PO SCH ×2 (10:27→19:51)
[2022-01-27 12:08] LABS: Body Fluid Source PERITONEAL; Color of fluid Yellow (COLORLESS)
[2022-01-27 12:09] LABS: Appearance SLT. TURBID (CLEAR); Body Fluid WBC 123 /mm^3
[2022-01-27] MEDS: OCUVITE (VIT A,C & E/LUTEIN/MINERAL) TABLET PO SCH (12:43)
[2022-01-27] MEDS: MULTIVIT W/ MINERAL TAB PO SCH (12:43)
[2022-01-27] MEDS: EPOETIN ALFA 10,000 UNIT/ML VIAL IV SCH (16:45)
[2022-01-27] MEDS: ATORVASTATIN 40 MG TAB PO SCH (19:51)
--- NOTE | 2022-01-27 20:03 | R.PN ---
PROGRESS NOTES ENCOUNTER DATE AND TIME: 01/27/2022 19:58 (CDT) NAME ALLIE CALVO DATE OF : 1945 DATE OF ADMISSION: 01/12/2022 13:51 (CDT) J18.9 Pneumonia, unspecified organismCHIEF COMPLAINT: Pneumonia and debility SUBJECTIVE: Pt denied any Shortness of Breath. Pt denied any depression. Hgb decreased to 8.7 from 9.4. WBC 7.6, Voice Network Engineer is 6.31. Patient has ESRD on HD and is followed by the re nal service. He received 2 units of blood with dialysis. Prealbumin 14.3. Chest CT today shows minimal change in right upper and lower lobe consolidations and right pleural ef fusion is larger. Either infectious, inflammatory or neoplastic. Needs further evaluation. Thoracentesis done with aspiration of 1500 cc of yellow fluid. Sent to path for evaluation. He has not done in acute rehab well enough to go home and will be discharged to long term. VITAL SIGNS Temperature: 98.0F SBP/DBP: 150/75 Pulse: 85 Resp: 16 MEDICATION ALLERGIES: No Known Drug Allergies (NKDA) ENVIRONMENTAL ALLERGIES: - Substance Allergies None Known - Other Allergies None Known NURSING: - Shower allowing shower - Lab Results blood Sugar Check ACHS PRECAUTIONS: - Fall Precaution Bed alarm TABS alarm Wheel chair alarm - Incontinence Bowel Incontinence - DVT Risk due to restricted mobility and age - Skin Breakdown Risk due to restricted mobility and age - Weight Bearing Precaution WBAT left LE ACTIVITIES OOB only with supervision THERAPIES: - Dietary and Nutrition Adequate Nutrition. Nutritional Education. Nutritional Supplements. - Occupational Therapy Cognitive Retraining. Patient needs Occupational Therapy for a daily minimum of 1.5 hours at least 5 out of 7 days, to improve Activities of Daily Living, including: Eating, Grooming, Bathing, Dressing, Toileting, Toilet Transfers, Community Reintegration, Higher functional activities, Adaptive Equipme nt, Splinting, Household Tasks, and Other activities as determined. Visual Perceptual Training. - Physical Therapy Patient needs Physical Therapy for a daily minimum of 1.5 hours at least 5 out of 7 days, to improve: Mobility, Strengthening, Transfers, Stretching, ROM, Endurance, Ability to manage stairs, Gait, and Balance. PHYSICAL EXAM - Gen Alert and awake Lying in bed No apparent distress Oriented to: person, time, and place - Skin No skin breakdown. No abnormalities - Eyes No abnormalities - ENMT No abnormalities - Neck No abnormalities - CVS RRR - Chest No abnormalities - Resp Clear to auscultation - Abd + bowel sounds - GI Soft Deferred - No abnormalities - Ext Mild bilateral lower extremity edema. - MSK 4/5 weakness in both lower extremities. - Neuro No focal deficits - Psych No abnormalities ASSESSMENT: Pt. is a 76 yo male.On 01/07/2022 he was admitted to [facility] with diagnosis J1 8.9 Pneumonia, unspecified organism.His impairment category is Pulmonary Disorders 10 - Other Pulmon renate Disorders (10.9).Pre-morbidly, Pt. was independent/mod-I in Locomotion and Self-Care; and he had good Safety Awareness, Balance, Transfers Control, Endurance, and Sphincter Control.Currently, he has deficits of Locomotion, Self-Care, Endurance, Sphincter Control, Transfers Control, and Balance.Pt. is now referred to [facility] for acute in-patient rehabilitation in order to maximize patient's functional independence in activities of daily living, strength, ROM, and mobility .- Rehab Goal Patient has realistic goal of being discharged at assistance level 6-Kip to reside at Home with Fam macarena/Relatives. MDM/PLAN: - Physical Therapy Inability to transfer - to improve, our physical therapists will perform initial evaluation of pt's status upon admission and devise an individualized program for Bed mobility Need for home safety evaluation - to improve, our physical therapists will perform initial evaluatio n of pt's status upon admission and devise an individualized program for Home Evaluation Need in caregiver upon discharge - to improve, our physical therapists will perform initial evaluati on of pt's status upon admission and devise an individualized program for Caregiver Training New precaution - to improve, our physical therapists will perform initial evaluation of pt's status upon admission and devise an individualized program for Patient precaution education Edema - to improve, our physical therapists will perform initial evaluation of pt's status upon admi ssion and devise an individualized program for Elevation Training, and Lymphedema Therapy Poor balance - to improve, our physical therapists will perform initial evaluation of pt's status up on admission and devise an individualized program for Balance Training Poor endurance - to improve, our physical therapists will perform initial evaluation of pt's status upon admission and devise an individualized program for Endurance Training Achieving independence - to improve, our physical therapists will perform initial evaluation of pt's status upon admission and devise an individualized program for Community Reintegration Activities - Occupational Therapy ADL deficits - to improve, our occupation therapists will perform initial evaluation of pt's status upon admission and devise an individualized program for Bathing, Bed mobility, Community Reintegratio n, Cooking, Dressing, Eating, Fine Motor Skills, Grooming, Homemaking, Kitchen Mobility, Laundry, Pat ient Education, Safety Awareness, Splinting - Positioning, Transfers(Toilet, Tub, Shower), and Wheel Chair Management Need for career advisor - to improve, our occupation therapists will perform initial evaluation of pt's status upon admission and devise an individualized program for Caregiver Training - Other See attached MAR (Medication Administration Record) - Diet Type Continue Regular - Diet - Liquid Texture Continue Regular - Tube Feed Continue N/A - Incontinence Bowel Incontinence - Lab Results blood Sugar Check ACHS - DVT Risk due to restricted mobility and age - Skin Breakdown Risk due to restricted mobility and age - Weight Bearing Precaution WBAT left LE - Fall Precaution Bed alarm TABS alarm Wheel chair alarm - Diet - Solid Texture Continue Regular - Shower allowing shower FUNCTIONAL STATUS: UPDATED AT WEEKLY TEAM CONFERENCE - Bladder Same accident frequency: 7-Ind - No accidents in the past 7 days - Bowel Same accident frequency: 7-Ind - No accidents in the past 7 days - Walking Same score based on distance walked: 0(N/A) Same score based on distance walked: 1(<=50ft) - Wheelchair Same score based on distance traveled: 0(N/A) FUNCTIONAL STATUS: - Self-Care A. Eating sup B. Grooming Kip C. Bathing Génesis D. Dressing - Upper Génesis E. Dressing - Lower modA F. Toileting Génesis - Sphincter Control G. Bladder control maxA H. Bowel control Kip - Transfers Control I. Bed/Chair/Wheelchair Génesis J. Toilet Génesis K. Tub/Shower modA - Locomotion L. Walk/Wheelchair (B) modA M. Stairs ADNO - Communication N. Comprehension (B) Génesis O. Expression (B) Génesis - Social Cognition P. Social Interaction sup Q. Problem Solving sup R. Memory sup - Endurance Poor - Balance Poor - Safety Awareness Poor QI SCORES: - Self-Care A. Eating 05-Setup or clean-up assistance B. Oral hygiene 05-Setup or clean-up assistance C. Toileting hygiene 03-Partial/moderate assistance E. Shower/bathe self 03-Partial/moderate assistance F. Upper body dressing 05-Setup or clean-up assistance G. Lower body dressing 03-Partial/moderate assistance H. Putting on/taking off footwear 03-Partial/moderate assistance - Mobility A. Roll left and right 04-Supervision or touching assistance B. Sit to lying 04-Supervision or touching assistance C. Lying to sitting on side of bed 04-Supervision or touching assistance D. Sit to stand 04-Supervision or touching assistance E. Chair/[id number]-[id number] transfer 04-Supervision or touching assistance F. Toilet transfer 04-Supervision or touching assistance G. Car transfer 88-Not attempted due to medical condition or safety concerns I. Walk 10 feet 04-Supervision or touching assistance J. Walk 50 feet with two turns 88-Not attempted due to medical condition or safety concerns K. Walk 150 feet 88-Not attempted due to medical condition or safety concerns L. Walking 10 feet on uneven surfaces 88-Not attempted due to medical condition or safety concerns M. 1 step (curb) 88-Not attempted due to medical condition or safety concerns N. 4 steps 88-Not attempted due to medical condition or safety concerns O. 12 steps 88-Not attempted due to medical condition or safety concerns P. Picking up object 88-Not attempted due to medical condition or safety concerns R. Wheel 50 feet with two turns 09-Not applicable S. Wheel 150 feet 09-Not applicable - Bladder and Bowel Bladder continence 2-Incontinent less than daily Bowel continence 3-Always incontinent - Endurance Good - Balance Good - Safety Awareness Good CURRENT FUNC. DEFICITS: Self-Care and Mobility SIGNATURE PANEL: (CDT)
[2022-01-28] MEDS: ALBUTEROL 2.5 MG/3 ML NEB SOL IH SCH ×2 (01:40→07:46)
[2022-01-28 04:34] LABS: Absolute Lymphocytes (CBC) 0.8 K/uL (0.7-4.9); Hematocrit 23.4 % (39.6-49.0); Lymphocytes % 10.5 % (15.3-44.8); MCV 98.6 fL (80-100); MPV 7.9 fL (7.6-11.3); RBC Red Blood Cell Count 2.37 M/uL (4.33-5.43)
[2022-01-28 04:41] LABS: Potassium 4.4 mmol/L (3.5-5.1)
[2022-01-28] MEDS: INSULIN -REGULAR HUMAN 50 UNIT/0.5 ML ML SQ SCH ×2 (07:20→11:30)
[2022-01-28 07:25] VITALS: BP 148/67; TEMP 97.6
[2022-01-28] MEDS: NEPRO SHAKE 237 ML CAN PO SCH (08:00)
[2022-01-28] MEDS: [UNRECOGNIZED DRUG - OTHER] PO SCH (08:00)
[2022-01-28] MEDS: AMINO ACIDS/PROTEIN HYDROLYS 30 ML LIQUID.PKT PO SCH (08:00)
[2022-01-28] MEDS: PANTOPRAZOLE 40MG TABLET PO SCH (08:29)
[2022-01-28] MEDS: CITALOPRAM 10 MG TABLET PO SCH (08:30)
[2022-01-28] MEDS: carvediloL 3.125 MG TAB PO SCH (08:30)
[2022-01-28] MEDS: LIDOCAINE 4% PATCH TOP SCH (08:31)
[2022-01-28] MEDS: ASPIRIN EC 81 MG TAB PO SCH (08:31)
[2022-01-28 09:08] VITALS: O2SAT 100
[2022-01-28] MEDS: INSULIN GLARGINE 100 UNIT/ML SQ SCH (09:25)
[2022-01-28] MEDS: NYSTATIN PWDR 100000 UNIT/GM TOP SCH (09:25)
--- NOTE | 2022-01-28 09:38 | RAD REPORT ---
EXAM DESCRIPTION: RAD - Chest Single View - 01/28/2022 5:24 am CLINICAL HISTORY: SP thoracentesis Chest pain. COMPARISON: Chest Single View dated 01/26/2022; Chest Single View dated 01/25/2022; Chest Single View dated 01/24/2022; Chest Single View dated 01/21/2022 FINDINGS: Portable technique limits examination quality. Mild worsening right-sided lung opacities may represent re-expansion pulmonary edema. Left lung appea rs grossly clear. No postprocedure pneumothorax. The heart is moderately enlarged.
--- NOTE | 2022-01-28 12:42 | PN ---
Date of Progress Note: 01/28/2022 Subjective: The patient was admitted to the rehab after fall, pleural effusion. The patient is stat us post thoracocentesis. Physical Examination: Vital Signs: Blood pressure 148/67, pulse of 88. Chest: Decreased entry bilateral base, more prominent on the right side. Heart: S1, S2. Systolic murmur. Abdomen: Soft, nontender. Extremity: Trace edema. Cast on the left leg. Neurologic: Alert. No focality. Laboratory Data: WBC 7.5, H and H 8.2/23.4. Sodium 134, potassium 4.4, bicarb 32, BUN 56, creatinin e 4.4, calcium 8.6. Current Medications: The patient on include; 1.Aspirin. 2.Nystatin. 3.Epogen. 4.Citalopram. 5.Nepro. 6.Pantoprazole. 7.Docusate. 8.Dialyvite. Assessment And Plan: 1.End-stage renal disease, over volume. We will continue the patient on dialysis Wednesday, Wednesday, Wednesday. The patient due for dialysis today. 2.Hypertension, controlled, optimal. Continue current treatment. 3.Deconditioning. Continue PT, OT. 4.Hyponatremia, going to be corrected with dialysis. 5.Anemia of chronic kidney disease. Continue LUANNE. 6.Pleural effusion, status post thoracocentesis. We will follow up with the primary and Pulmonary. AL/BILLY Voice ID: [id number] Report ID: [id number]
[2022-01-28] MEDS: OCUVITE (VIT A,C & E/LUTEIN/MINERAL) TABLET PO SCH (13:00)
[2022-01-28] MEDS: MULTIVIT W/ MINERAL TAB PO SCH (13:00)
[2022-01-29 12:52] LABS: LD, PLEURAL FLUID 91 U/L; TOTAL PROTEIN, PLEURAL FLUID <3.0 g/dL
== END 2022-01-28 13:30 | DRG 947 ==
LOC: 5TH 13:51
PROVIDERS: ADMIT Psychiatry & Neurology Neurology with Special Qualifications in Child Neurology; ATTEND Psychiatry & Neurology Neurology with Special Qualifications in Child Neurology
PROC: 0W993ZX Drainage of Right Pleural Cavity, Percutaneous Approach, Diagnostic (ICD-10-PCS; principal; 2022-01-26)
DX: R53.81 Other malaise (principal); J18.9 Pneumonia, unspecified organism; N18.6 End stage renal disease; I13.2 Hypertensive heart and chronic kidney disease with heart failure and with stage 5 chronic kidney disease, or end stage renal disease; I50.32 Chronic diastolic (congestive) heart failure; J91.8 Pleural effusion in other conditions classified elsewhere; E87.1 Hypo-osmolality and hyponatremia; N25.81 Secondary hyperparathyroidism of renal origin; E11.22 Type 2 diabetes mellitus with diabetic chronic kidney disease; E11.40 Type 2 diabetes mellitus with diabetic neuropathy, unspecified; E11.21 Type 2 diabetes mellitus with diabetic nephropathy; I25.10 Atherosclerotic heart disease of native coronary artery without angina pectoris; E78.5 Hyperlipidemia, unspecified; Z99.2 Dependence on renal dialysis; Z20.822 Contact with and (suspected) exposure to COVID-19
CPT/HCPCS: 32555; 36415; 71045; 71046; 71250; 74230; 80048; 80053; 80069; 82040; 82274; 82465; 82945; 82947; 83615; 83735; 84134; 84157; 85014; 85018; 85025; 85610; 86850; 86900; 86901; 87015; 87070; 87102; 87116; 87205; 87206; 88108; 88305; 89050; 90935; 92526; 92611; 93005; 94640; 97110; 97116; 97161; 97165; 97530; 97542; J1644; J1815; J2001; J2250; J7050; J7512; P9016; Q0162; U0003

== ENCOUNTER 2022-05-06 14:59 | Emergency (ER) | payer OTHER, BC ==
--- OUTSIDE RECORDS SUMMARY | 2022-05-06 15:08 | XMS REPORT | Continuity of Care Document ---
:1945 Author Organization [facility] t Address [address] [place] [address] Care Team Providers Name Role Phone Naveed Fortune Attending Clinician Unavailable [id number] Attending Clinician Unavailable CAREY LONG Attending Clinician Unavailable CAMELIA MANCILLA Attending Clinician Unavailable RONNIE WHITNEY Attending Clinician Unavailable MONSE VELAZQUEZ Attending Clinician Unavailable CHILANGO ARMSTRONG NATASHA Attending Clinician Unavailable [id number] Admitting Clinician Unavailable CAMELIA MANCILLA Admitting Clinician Unavailable MONSE VELAZQUEZ Admitting Clinician Unavailable CHILANGO ARMSTRONG NATASHA Admitting Clinician Unavailable Payers Payer Name Policy Type Policy Number Effective Date Expiration Date S kristin MEDICARE PART A [id number] 2011 AND B 00:00:00 [employer] Blue 6 [id number] 2014 [facility] Shield of [place] 00:00:00 - [facility] [id number] BCTX BCTI [id number] MEDICARE MB [id number] 2011 [facility] NOVITAS 00:00:00 - [facility] MEDICARE MB [id number] 2011 [facility] NOVITAS 00:00:00 - [facility] MEDICARE MB [id number] 2011 [facility] NOVITAS 00:00:00 - [facility] Problems Condition Condition Condition Status Onset Resolution Last Treating Co mments Source Name Details Category Date Date Treatment Clinician Date [id number] Other Problem Common obesity Spirit due to - [facility] excess calories [facility] [id number] Metabolic Problem Com mon syndrome [facility] - [facility] [id number] Body mass Problem Com mon index Spirit [BMI] - [facility] 30.0-30.9, [facility] [id number] Frailty Problem Commo n syndrome Spirit in - [facility] geriatric [facility] 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 - [facility] , single major St episode depressive [facility] prior episode 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 - [facility] Chronic Chronic Problem Common systolic systolic Spirit heart congestive - [facility] failure heart [facility] [id number] 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 - [facility] [id number] GERD Problem Common without Spirit esophagiti - [facility] s [facility] [id number] Type 2 Problem Common diabetes Spirit mellitus - [facility] with [facility] [id number] Mixed Problem Common hyperlipid Spirit emia - [facility] [id number] Noncomplia Problem Co mmon nce of Spirit patient - [facility] with [facility] Chronic +5th digit Problem Comm on atrial eff Spirit fibrillati 02/28/19*Ch - [facility] on ronic St (disorder) atrial kes fibrillati [facility] [place] [id number] 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 - [facility] with [facility] Chronic Chronic Problem Common obstructiv obstructiv Sp jerome e lung e - [facility] type [id number] Heart Problem Common failure, Spirit congestive - [facility] , etiology unknown [facility] [id number] Constipati Problem Com mon on, Spirit unspecifie - [facility] d constipati [facility] [place] [id number] Memory Problem Common impairment Spirit of gradual - CHI onset [facility] [id number] HTN, goal Problem Comm on below Spirit 130/80 - [facility] [id number] Anemia of Problem Com mon chronic Spirit disease - [facility] [id number] skilled nursing Problem Com mon (current) [facility] use of - CHI insulin [facility] [id number] Benign Problem Common prostatic [facility] 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 [facility] Hypertensi Hypertensi Problem C ommon ve heart ve chronic Spir it AND kidney - CHI chronic disease St kidney with stage [facility] 5 chronic Medica l stage 5 kidney Center (disorder) disease or end stage renal disease Allergies, Adverse Reactions, Alerts Allergy Allergy Status Severity Reaction(s) Onset Inactive Treating Comm ents Source Name Type Date Date Clinician gabapent gabapent Active Unknown Commo n in in [facility] codeine codeine Active Unknown Common [facility] Social History Social Habit Start Date Stop Date Quantity Comments Source History of Tobacco Use Co mmon [facility] Sex Assigned At Com mon [facility] Smoking Status Start Date Stop Date Source Former Smoker 2022-02-18 00:00:00 2022-02-18 00:00:00 [facility]irit [facility] Medications Ordered Filled Start Stop Current Ordering Indication Dosage Frequency Signature Comments Components Source Medication Medication Date Date Medication? Clinician (SIG) Name Name Rishabh Braymahendraus No Lantus SoloStar SoloStar 01-01 SoloStar 100 UNIT/ML 100 UNIT/ML 00:00: 100 00 UNIT/ML Lantus Lantus No Lantus SoloStar SoloStar 01-01 SoloStar 100 UNIT/ML 100 UNIT/ML 00:00: 100 00 UNIT/ML Lantus Lantus No Lantus SoloStar SoloStar 01-01 SoloStar 100 UNIT/ML 100 UNIT/ML 00:00: 100 00 UNIT/ML Lantus Lantus No Lantus SoloStar SoloStar 01-01 SoloStar 100 UNIT/ML 100 UNIT/ML 00:00: 100 00 UNIT/ML Lantus Lantus No Lantus SoloStar SoloStar 8-04 SoloStar 100 UNIT/ML 100 UNIT/ML 00:00: 100 00 UNIT/ML Lantus Lantus 2021-0 No Lantus SoloStar SoloStar 8- SoloStar 100 UNIT/ML 100 UNIT/ML 00:00: 100 00 UNIT/ML Lantus Lantus 2021-0 No Lantus SoloStar SoloStar 8- SoloStar 100 UNIT/ML 100 UNIT/ML 00:00: 100 00 UNIT/ML Lantus Lantus 2021-0 No Lantus SoloStar SoloStar 8- SoloStar 100 UNIT/ML 100 UNIT/ML 00:00: 100 00 UNIT/ML Advair HFA Advair HFA 2019-0 Yes Naveed 2 puffs Common 1-15 [facility] 00:00: - [facility] 00 [facility] 2018-05 Yes Naveed 1 needle Common Ultra-Fine Ultra-Fine 0-09 [facility] with Sp jerome Christina Pen Christina Pen 00:00: Basaglar - CHI Chaplin Chaplin 00 [facility] 2018-05 No QD BD Ultra-Fine Ultra-Fine 0-09 Ultra-Fine Christina Pen Christina Pen 00:00: Christina Pen Chaplin 4mm Chaplin 4mm 00 Chaplin x 32Gm x 32Gm 4mm x 32Gm [facility] 2018-05 No QD BD Ultra-Fine Ultra-Fine 0-09 Ultra-Fine Christina Pen Christina Pen 00:00: Christina Pen Chaplin 4mm Chaplin 4mm 00 Chaplin x 32Gm x 32Gm 4mm x 32Gm BD 2018-05 No QD BD Ultra-Fine Ultra-Fine 0-09 Ultra-Fine Christina Pen Christina Pen 00:00: Christina Pen Chaplin 4mm Chaplin 4mm 00 Chaplin x 32Gm x 32Gm 4mm x 32Gm BD 2018-05 No QD BD Ultra-Fine Ultra-Fine 0-09 Ultra-Fine Christina Pen Christina Pen 00:00: Christina Pen Chaplin 4mm Chaplin 4mm 00 Chaplin x 32Gm x 32Gm 4mm x 32Gm BD 2018-05 No QD BD Ultra-Fine Ultra-Fine 0-09 Ultra-Fine Christina Pen Christina Pen 00:00: Christina Pen Chaplin 4mm Chaplin 4mm 00 Chaplin x 32Gm x 32Gm 4mm x 32Gm [facility] 2018-05 No QD BD Ultra-Fine Ultra-Fine 0-09 Ultra-Fine Christina Pen Christina Pen 00:00: Christina Pen Chaplin 4mm Chaplin 4mm 00 Chaplin x 32Gm x 32Gm 4mm x 32Gm [facility] 2018- No QD BD Ultra-Fine Ultra-Fine 0-09 Ultra-Fine Christina Pen Christina Pen 00:00: Christina Pen Chaplin 4mm Chaplin 4mm 00 Chaplin x 32Gm x 32Gm 4mm x 32Gm [facility] 2018- No QD BD Ultra-Fine Ultra-Fine 0-09 Ultra-Fine Christina Pen Christina Pen 00:00: Christina Pen Chaplin 4mm Chaplin 4mm 00 Chaplin x 32Gm x 32Gm 4mm x 32Gm [facility] 2018- No QD BD Ultra-Fine Ultra-Fine 0-09 Ultra-Fine Christina Pen Christina Pen 00:00: Christina Pen Chaplin 4mm Chaplin 4mm 00 Chaplin x 32Gm x 32Gm 4mm x 32Gm [facility] 2018- No QD BD Ultra-Fine Ultra-Fine 0-09 Ultra-Fine Christina Pen Christina Pen 00:00: Christina Pen Chaplin 4mm Chaplin 4mm 00 Chaplin x 32Gm x 32Gm 4mm x 32Gm [facility] 2018- No QD BD Ultra-Fine Ultra-Fine 0-09 Ultra-Fine Christina Pen Chirstina Pen 00:00: Christina Pen Chaplin 4mm Chaplin 4mm 00 Chaplin x 32Gm x 32Gm 4mm x 32Gm [facility] 2018- No QD BD Ultra-Fine Ultra-Fine 0-09 Ultra-Fine Christina Pen Christina Pen 00:00: Christina Pen Chaplin 4mm Chaplin 4mm 00 Chaplin x 32Gm x 32Gm 4mm x 32Gm [facility] 2018- No QD BD Ultra-Fine Ultra-Fine 0-09 Ultra-Fine Christina Pen Christina Pen 00:00: Christina Pen Chaplin 4mm Chaplin 4mm 00 Chaplin x 32Gm x 32Gm 4mm x 32Gm [facility] 2018- No QD BD Ultra-Fine Ultra-Fine 0-09 Ultra-Fine Christina Pen Christina Pen 00:00: Christina Pen Chaplin 4mm Chaplin 4mm 00 Chaplin x 32Gm x 32Gm 4mm x 32Gm [facility] 2018- No QD BD Ultra-Fine Ultra-Fine 0-09 Ultra-Fine Christina Pen Christina Pen 00:00: Christina Pen Chaplin 4mm Chaplin 4mm 00 Chaplin x 32Gm x 32Gm 4mm x 32Gm [facility] 2018- No QD BD Ultra-Fine Ultra-Fine 0-09 Ultra-Fine Christina Pen Christina Pen 00:00: Christina Pen Chaplin 4mm Chaplin 4mm 00 Chaplin x 32Gm x 32Gm 4mm x 32Gm BD 2018-05 No QD BD Ultra-Fine Ultra-Fine 0-09 Ultra-Fine Christina Pen Christina Pen 00:00: Christina Pen Chaplin 4mm Chaplin 4mm 00 Chaplin x 32Gm x 32Gm 4mm x 32Gm BD 2018-05 No QD BD Ultra-Fine Ultra-Fine 0-09 Ultra-Fine Christina Pen Christina Pen 00:00: Christina Pen Chaplin 4mm Chaplin 4mm 00 Chaplin x 32Gm x 32Gm 4mm x 32Gm BD 2018-05 No QD BD Ultra-Fine Ultra-Fine 0-09 Ultra-Fine Christina Pen Christina Pen 00:00: Christina Pen Chaplin 4mm Chaplin 4mm 00 Chaplin x 32Gm x 32Gm 4mm x 32Gm Tums E-X Tums E-X Yes Naveed 1 tablet C ommon 750 750 Fortune [facility] Basaglar Basaglar Yes Naveed 52 Units C ommon KwikPen KwikPen Fortune [facility] PreserVisio PreserVisio Yes Naveed as Common n AREDS n AREDS Fortune directed [facility] Citalopram Citalopram Yes Naveed 1 tablet Common Hydrobromid Hydrobromid Fortune [facility] e e [facility] Stool Stool Yes Naveed not Common Softener Softener Fortune defined [facility] Gentle Gentle Yes Naveed 1 tablet Commo n Laxative Laxative Fortune as needed S pirit [facility] Atorvastati Atorvastati Yes Naveed 1 tablet Common n Calcium n Calcium Fortune [facility] Contour Contour Yes Naveed USE 3 Common Test Test Fortune TIMES A [facility] DAY [facility] Eliquis 2.5 Eliquis 2.5 Yes Naveed 1 tablet Common mg mg Fortune [facility] Multivitami Multivitami Yes Naveed as Common n Adult n Adult Fortune directed [facility] Carvedilol Carvedilol Yes Naveed TAKE 1 Common Fortune TABLET BY Spirit MOUTH - [facility]I TWICE A St DAY ON NON [facility] DIALYSIS Medical DAYS Center Atorvastati Atorvastati Yes Naveed TAKE 1 Common n Calcium n Calcium Fortune TABLET BY Spirit MOUTH - CHI EVERY DAY [facility] GlipiZIDE GlipiZIDE Yes Naveed 1 tablet Common [facility] Basaglar Basaglar Yes Naveed 50 Units C ommon KwikPen KwikPen [facility] Spirit [facility] Advair HFA Advair HFA No 2{puffs BID Advair HFA 230-21 230-21 } 230-21 MCG/ACT MCG/ACT MCG/ACT Citalopram Citalopram No Citalopram Hydrobromid Hydrobromid Hydrobromi e 20 MG e 20 MG de 20 MG Basaglar Basaglar No Basaglar KwikPen 100 KwikPen 100 KwikPen UNIT/ML UNIT/ML 100 UNIT/ML PreserVisio PreserVisio No PreserVisi n AREDS - n AREDS - on AREDS - Ipratropium Ipratropium No Ipratropiu -Albuterol -Albuterol m-Albutero 0.5-2.5 (3) 0.5-2.5 (3) l 0.5-2.5 MG/3ML MG/3ML (3) MG/3ML Atorvastati Atorvastati No Atorvastat n Calcium n Calcium in Calcium 40 MG 40 MG 40 MG BD Pen BD Pen No BD Pen Needle Christina Needle Christina Needle U/F 32G X 4 U/F 32G X 4 Christina U/F MM MM 32G X 4 MM Carvedilol Carvedilol No Carvedilol 12.5 MG 12.5 MG 12.5 MG Atorvastati Atorvastati No 1{table QD Atorvastat n Calcium n Calcium t} in Calcium 40 MG 40 MG 40 MG Gentle Gentle No 1{table QD Gentle Laxative 5 Laxative 5 t_as_ne Laxative 5 MG MG eded} MG Citalopram Citalopram No 1{table QD Citalopram Hydrobromid Hydrobromid t} Hydrobromi e 20 MG e 20 MG de 20 MG Aspirin Aspirin No Aspirin Contour Contour No Contour Test - Test - Test - Pantoprazol Pantoprazol No Pantoprazo e Sodium e Sodium le Sodium Tums E-X Tums E-X No 1{table TID Tums E-X 750 750 MG 750 750 MG t} 750 750 MG Stool Stool No Stool Softener Softener Softener Multivitami Multivitami No Multivitam n Adult - n Adult - in Adult - Advair HFA Advair HFA No 2{puffs BID Advair HFA 230-21 230-21 } 230-21 MCG/ACT MCG/ACT MCG/ACT Citalopram Citalopram No Citalopram Hydrobromid Hydrobromid Hydrobromi e 20 MG e 20 MG de 20 MG Basaglar Basaglar No Basaglar KwikPen 100 KwikPen 100 KwikPen UNIT/ML UNIT/ML 100 UNIT/ML PreserVisio PreserVisio No PreserVisi n AREDS - n AREDS - on AREDS - Ipratropium Ipratropium No Ipratropiu -Albuterol -Albuterol m-Albutero 0.5-2.5 (3) 0.5-2.5 (3) l 0.5-2.5 MG/3ML MG/3ML (3) MG/3ML Atorvastati Atorvastati No Atorvastat n Calcium n Calcium in Calcium 40 MG 40 MG 40 MG BD Pen BD Pen No BD Pen Needle Christina Needle Christina Needle U/F 32G X 4 U/F 32G X 4 Christina U/F MM MM 32G X 4 MM Carvedilol Carvedilol No Carvedilol 12.5 MG 12.5 MG 12.5 MG Atorvastati Atorvastati No 1{table QD Atorvastat n Calcium n Calcium t} in Calcium 40 MG 40 MG 40 MG Gentle Gentle No 1{table QD Gentle Laxative 5 Laxative 5 t_as_ne Laxative 5 MG MG eded} MG Citalopram Citalopram No 1{table QD Citalopram Hydrobromid Hydrobromid t} Hydrobromi e 20 MG e 20 MG de 20 MG Gentle Gentle No 1{table QD Gentle Laxative 5 Laxative 5 t_as_ne Laxative 5 MG MG eded} MG Multivitami Multivitami No Multivitam n Adult - n Adult - in Adult - Stool Stool No Stool Softener Softener Softener PreserVisio PreserVisio No PreserVisi n AREDS - n AREDS - on AREDS - glipiZIDE glipiZIDE No 1{table QD glipiZIDE 10 MG 10 MG t} 10 MG Atorvastati Atorvastati No 1{table QD Atorvastat n Calcium n Calcium t} in Calcium 40 MG 40 MG 40 MG Basaglar Basaglar No QD Basaglar KwikPen 100 KwikPen 100 KwikPen UNIT/ML UNIT/ML 100 UNIT/ML glipiZIDE glipiZIDE No glipiZIDE 10 MG 10 MG 10 MG Basaglar Basaglar No Basaglar KwikPen 100 KwikPen 100 KwikPen UNIT/ML UNIT/ML 100 UNIT/ML BD Pen BD Pen No BD Pen Needle Christina Needle Christina Needle U/F 32G X 4 U/F 32G X 4 Christina U/F MM MM 32G X 4 MM Eliquis 2.5 Eliquis 2.5 No 1{table Eliquis mg mg t} 2.5 mg Advair HFA Advair HFA No 2{puffs BID Advair HFA 230-21 230-21 } 230-21 MCG/ACT MCG/ACT MCG/ACT Atorvastati Atorvastati No Atorvastat n Calcium n Calcium in Calcium 40 MG 40 MG 40 MG Citalopram Citalopram No Citalopram Hydrobromid Hydrobromid Hydrobromi e 20 MG e 20 MG de 20 MG Citalopram Citalopram No 1{table QD Citalopram Hydrobromid Hydrobromid t} Hydrobromi e 20 MG e 20 MG de 20 MG Carvedilol Carvedilol No Carvedilol 12.5 MG 12.5 MG 12.5 MG Ipratropium Ipratropium No Ipratropiu -Albuterol -Albuterol m-Albutero 0.5-2.5 (3) 0.5-2.5 (3) l 0.5-2.5 MG/3ML MG/3ML (3) MG/3ML Tums E-X Tums E-X No 1{table TID Tums E-X 750 750 MG 750 750 MG t} 750 750 MG Carvedilol Carvedilol No Carvedilol 12.5 MG 12.5 MG 12.5 MG glipiZIDE 5 glipiZIDE 5 No 1{table QD glipiZIDE MG MG t} 5 MG Dexcom G6 Dexcom G6 No Dexcom G6 Transmitter Transmitter Transmitte - - r - Contour Contour No Contour Test - Test - Test - Dexcom G6 Dexcom G6 No Dexcom G6 Sensor - Sensor - Sensor - Dexcom G6 Dexcom G6 No Dexcom G6 [employer] - End Finder Forming Department - End F[employer]ing Department - Carvedilol Carvedilol No Carvedilol 12.5 MG 12.5 MG 12.5 MG PreserVisio PreserVisio No PreserVisi n AREDS - n AREDS - on AREDS - Tums E-X Tums E-X No 1{table TID Tums E-X 750 750 MG 750 750 MG t} 750 750 MG Dexcom G6 Dexcom G6 No Dexcom G6 Sensor - Sensor - Sensor - Multivitami Multivitami No Multivitam n Adult - n Adult - in Adult - Advair HFA Advair HFA No 2{puffs BID Advair HFA 230-21 230-21 } 230-21 MCG/ACT MCG/ACT MCG/ACT Atorvastati Atorvastati No Atorvastat n Calcium n Calcium in Calcium 40 MG 40 MG 40 MG glipiZIDE glipiZIDE No 1{table QD glipiZIDE 10 MG 10 MG t} 10 MG Basaglar Basaglar No QD Basaglar KwikPen 100 KwikPen 100 KwikPen UNIT/ML UNIT/ML 100 UNIT/ML Gentle Gentle No 1{table QD Gentle Laxative 5 Laxative 5 t_as_ne Laxative 5 MG MG eded} MG Contour Contour No Contour Test - Test - Test - Dexcom G6 Dexcom G6 No Dexcom G6 Transmitter Transmitter Transmitte - - r - Citalopram Citalopram No QD Citalopram Hydrobromid Hydrobromid Hydrobromi e 40 MG e 40 MG de 40 MG BD Pen BD Pen No BD Pen Needle Christina Needle Christina Needle U/F 32G X 4 U/F 32G X 4 Christina U/F MM MM 32G X 4 MM glipiZIDE glipiZIDE No glipiZIDE 10 MG 10 MG 10 MG Dexcom G6 Dexcom G6 No Dexcom G6 End F[employer]ing Department - End Finder Forming Department - End F[employer]ing Department - glipiZIDE 5 glipiZIDE 5 No 1{table QD glipiZIDE MG MG t} 5 MG Basaglar Basaglar No Basaglar KwikPen 100 KwikPen 100 KwikPen UNIT/ML UNIT/ML 100 UNIT/ML Eliquis 2.5 Eliquis 2.5 No 1{table Eliquis mg mg t} 2.5 mg Stool Stool No Stool Softener Softener Softener Carvedilol Carvedilol No Carvedilol 12.5 MG 12.5 MG 12.5 MG Ipratropium Ipratropium No Ipratropiu -Albuterol -Albuterol m-Albutero 0.5-2.5 (3) 0.5-2.5 (3) l 0.5-2.5 MG/3ML MG/3ML (3) MG/3ML PreserVisio PreserVisio No PreserVisi n AREDS - n AREDS - on AREDS - Stool Stool No Stool Softener Softener Softener Dexcom G6 Dexcom G6 No Dexcom G6 Transmitter Transmitter Transmitte - - r - Eliquis 2.5 Eliquis 2.5 No 1{table Eliquis mg mg t} 2.5 mg Multivitami Multivitami No Multivitam n Adult - n Adult - in Adult - Citalopram Citalopram No 1{table QD Citalopram Hydrobromid Hydrobromid t} Hydrobromi e 40 MG e 40 MG de 40 MG Tums E-X Tums E-X No 1{table TID Tums E-X 750 750 MG 750 750 MG t} 750 750 MG Carvedilol Carvedilol No Carvedilol 12.5 MG 12.5 MG 12.5 MG Basaglar Basaglar No QD Basaglar KwikPen 100 KwikPen 100 KwikPen UNIT/ML UNIT/ML 100 UNIT/ML glipiZIDE glipiZIDE No glipiZIDE 10 MG 10 MG 10 MG Dexcom G6 Dexcom G6 No Dexcom G6 Sensor - Sensor - Sensor - Gentle Gentle No 1{table QD Gentle Laxative 5 Laxative 5 t_as_ne Laxative 5 MG MG eded} MG glipiZIDE 5 glipiZIDE 5 No 1{table QD glipiZIDE MG MG t} 5 MG Advair HFA Advair HFA No 2{puffs BID Advair HFA 230-21 230-21 } 230-21 MCG/ACT MCG/ACT MCG/ACT Atorvastati Atorvastati No 1{table QD Atorvastat n Calcium n Calcium t} in Calcium 40 MG 40 MG 40 MG glipiZIDE glipiZIDE No 1{table QD glipiZIDE 10 MG 10 MG t} 10 MG Atorvastati Atorvastati No Atorvastat n Calcium n Calcium in Calcium 40 MG 40 MG 40 MG Dexcom G6 Dexcom G6 No Dexcom G6 End Finder Forming Department - End Finder Forming Department - End Finder Forming Department - Ipratropium Ipratropium No Ipratropiu -Albuterol -Albuterol m-Albutero 0.5-2.5 (3) 0.5-2.5 (3) l 0.5-2.5 MG/3ML MG/3ML (3) MG/3ML Contour Contour No Contour Test - Test - Test - Citalopram Citalopram No QD Citalopram Hydrobromid Hydrobromid Hydrobromi e 40 MG e 40 MG de 40 MG Basaglar Basaglar No Basaglar KwikPen 100 KwikPen 100 KwikPen UNIT/ML UNIT/ML 100 UNIT/ML Carvedilol Carvedilol No Carvedilol 12.5 MG 12.5 MG 12.5 MG BD Pen BD Pen No BD Pen Needle Christina Needle Christina Needle U/F 32G X 4 U/F 32G X 4 Christina U/F MM MM 32G X 4 MM PreserVisio PreserVisio No PreserVisi n AREDS - n AREDS - on AREDS - Stool Stool No Stool Softener Softener Softener Citalopram Citalopram No Citalopram Hydrobromid Hydrobromid Hydrobromi e 20 MG e 20 MG de 20 MG Eliquis 2.5 Eliquis 2.5 No 1{table Eliquis mg mg t} 2.5 mg Multivitami Multivitami No Multivitam n Adult - n Adult - in Adult - Citalopram Citalopram No 1{table QD Citalopram Hydrobromid Hydrobromid t} Hydrobromi e 40 MG e 40 MG de 40 MG Tums E-X Tums E-X No 1{table TID Tums E-X 750 750 MG 750 750 MG t} 750 750 MG Advair HFA Advair HFA No 2{puffs BID Advair HFA 230-21 230-21 } 230-21 MCG/ACT MCG/ACT MCG/ACT Carvedilol Carvedilol No Carvedilol 12.5 MG 12.5 MG 12.5 MG Atorvastati Atorvastati No Atorvastat n Calcium n Calcium in Calcium 40 MG 40 MG 40 MG Dexcom G6 Dexcom G6 No Dexcom G6 End F[employer]ing Department - End Finder Forming Department - End Finder Forming Department - Gentle Gentle No 1{table QD Gentle Laxative 5 Laxative 5 t_as_ne Laxative 5 MG MG eded} MG Ipratropium Ipratropium No Ipratropiu -Albuterol -Albuterol m-Albutero 0.5-2.5 (3) 0.5-2.5 (3) l 0.5-2.5 MG/3ML MG/3ML (3) MG/3ML Dexcom G6 Dexcom G6 No Dexcom G6 Sensor - Sensor - Sensor - Atorvastati Atorvastati No 1{table QD Atorvastat n Calcium n Calcium t} in Calcium 40 MG 40 MG 40 MG glipiZIDE glipiZIDE No 1{table QD glipiZIDE 10 MG 10 MG t} 10 MG glipiZIDE 5 glipiZIDE 5 No 1{table QD glipiZIDE MG MG t} 5 MG Dexcom G6 Dexcom G6 No Dexcom G6 Transmitter Transmitter Transmitte - - r - Basaglar Basaglar No QD Basaglar KwikPen 100 KwikPen 100 KwikPen UNIT/ML UNIT/ML 100 UNIT/ML glipiZIDE glipiZIDE No glipiZIDE 10 MG 10 MG 10 MG Basaglar Basaglar No Basaglar KwikPen 100 KwikPen 100 KwikPen UNIT/ML UNIT/ML 100 UNIT/ML Contour Contour No Contour Test - Test - Test - Carvedilol Carvedilol No Carvedilol 12.5 MG 12.5 MG 12.5 MG BD Pen BD Pen No BD Pen Needle Christina Needle Christina Needle U/F 32G X 4 U/F 32G X 4 Christina U/F MM MM 32G X 4 MM Advair HFA Advair HFA No 2{puffs BID Advair HFA 230 } 230-21 MCG/ACT MCG/ACT MCG/ACT Atorvastati Atorvastati No Atorvastat n Calcium n Calcium in Calcium 40 MG 40 MG 40 MG Dexcom G6 Dexcom G6 No Dexcom G6 Sensor - Sensor - Sensor - Contour Contour No Contour Test - Test - Test - Eliquis 2.5 Eliquis 2.5 No 1{table Eliquis mg mg t} 2.5 mg Citalopram Citalopram No 1{table QD Citalopram Hydrobromid Hydrobromid t} Hydrobromi e 40 MG e 40 MG de 40 MG Dexcom G6 Dexcom G6 No Dexcom G6 End F[employer] Forming Department - End Finder Forming Department - End Finder Forming Department - PreserVisio PreserVisio No PreserVisi n AREDS - n AREDS - on AREDS - Basaglar Basaglar No Basaglar KwikPen 100 KwikPen 100 KwikPen UNIT/ML UNIT/ML 100 UNIT/ML BD Pen BD Pen No BD Pen Needle Christina Needle Christina Needle U/F 32G X 4 U/F 32G X 4 Christina U/F MM MM 32G X 4 MM glipiZIDE 5 glipiZIDE 5 No 1{table QD glipiZIDE MG MG t} 5 MG Carvedilol Carvedilol No Carvedilol 12.5 MG 12.5 MG 12.5 MG glipiZIDE glipiZIDE No glipiZIDE 10 MG 10 MG 10 MG Gentle Gentle No 1{table QD Gentle Laxative 5 Laxative 5 t_as_ne Laxative 5 MG MG eded} MG Tums E-X Tums E-X No 1{table TID Tums E-X 750 750 MG 750 750 MG t} 750 750 MG Ipratropium Ipratropium No Ipratropiu -Albuterol -Albuterol m-Albutero 0.5-2.5 (3) 0.5-2.5 (3) l 0.5-2.5 MG/3ML MG/3ML (3) MG/3ML Stool Stool No Stool Softener Softener Softener Dexcom G6 Dexcom G6 No Dexcom G6 Transmitter Transmitter Transmitte - - r - Citalopram Citalopram No Citalopram Hydrobromid Hydrobromid Hydrobromi e 20 MG e 20 MG de 20 MG Multivitami Multivitami No Multivitam n Adult - n Adult - in Adult - Basaglar Basaglar No QD Basaglar KwikPen 100 KwikPen 100 KwikPen UNIT/ML UNIT/ML 100 UNIT/ML Stool Stool No Stool Softener Softener Softener Dexcom G6 Dexcom G6 No Dexcom G6 Transmitter Transmitter Transmitte - - r - Basaglar Basaglar No Basaglar KwikPen 100 KwikPen 100 KwikPen UNIT/ML UNIT/ML 100 UNIT/ML BD Pen BD Pen No BD Pen Needle Christina Needle Christina Needle U/F 32G X 4 U/F 32G X 4 Christina U/F MM MM 32G X 4 MM Eliquis 2.5 Eliquis 2.5 No 1{table Eliquis mg mg t} 2.5 mg Tums E-X Tums E-X No 1{table TID Tums E-X 750 750 MG 750 750 MG t} 750 750 MG Citalopram Citalopram No 1{table QD Citalopram Hydrobromid Hydrobromid t} Hydrobromi e 40 MG e 40 MG de 40 MG Carvedilol Carvedilol No Carvedilol 12.5 MG 12.5 MG 12.5 MG Contour Contour No Contour Test - Test - Test - Gentle Gentle No 1{table QD Gentle Laxative 5 Laxative 5 t_as_ne Laxative 5 MG MG eded} MG PreserVisio PreserVisio No PreserVisi n AREDS - n AREDS - on AREDS - Atorvastati Atorvastati No Atorvastat n Calcium n Calcium in Calcium 40 MG 40 MG 40 MG glipiZIDE glipiZIDE No 1{table QD glipiZIDE 10 MG 10 MG t} 10 MG glipiZIDE 5 glipiZIDE 5 No 1{table QD glipiZIDE MG MG t} 5 MG glipiZIDE glipiZIDE No glipiZIDE 10 MG 10 MG 10 MG Citalopram Citalopram No Citalopram Hydrobromid Hydrobromid Hydrobromi e 20 MG e 20 MG de 20 MG Basaglar Basaglar No QD Basaglar KwikPen 100 KwikPen 100 KwikPen UNIT/ML UNIT/ML 100 UNIT/ML Ipratropium Ipratropium No Ipratropiu -Albuterol -Albuterol m-Albutero 0.5-2.5 (3) 0.5-2.5 (3) l 0.5-2.5 MG/3ML MG/3ML (3) MG/3ML Multivitami Multivitami No Multivitam n Adult - n Adult - in Adult - Atorvastati Atorvastati No 1{table QD Atorvastat n Calcium n Calcium t} in Calcium 40 MG 40 MG 40 MG Dexcom G6 Dexcom G6 No Dexcom G6 Sensor - Sensor - Sensor - Dexcom G6 Dexcom G6 No Dexcom G6 [employer] - [employer] Department - [employer] Department - Advair HFA Advair HFA No 2{puffs BID Advair HFA 230-21 230-21 } 230-21 MCG/ACT MCG/ACT MCG/ACT Carvedilol Carvedilol No Carvedilol 12.5 MG 12.5 MG 12.5 MG Stool Stool No Stool Softener Softener Softener Dexcom G6 Dexcom G6 No Dexcom G6 Transmitter Transmitter Transmitte - - r - Basaglar Basaglar No Basaglar KwikPen 100 KwikPen 100 KwikPen UNIT/ML UNIT/ML 100 UNIT/ML BD Pen BD Pen No BD Pen Needle Christina Needle Christina Needle U/F 32G X 4 U/F 32G X 4 Christina U/F MM MM 32G X 4 MM Eliquis 2.5 Eliquis 2.5 No 1{table Eliquis mg mg t} 2.5 mg Tums E-X Tums E-X No 1{table TID Tums E-X 750 750 MG 750 750 MG t} 750 750 MG Citalopram Citalopram No 1{table QD Citalopram Hydrobromid Hydrobromid t} Hydrobromi e 40 MG e 40 MG de 40 MG Carvedilol Carvedilol No Carvedilol 12.5 MG 12.5 MG 12.5 MG Contour Contour No Contour Test - Test - Test - Gentle Gentle No 1{table QD Gentle Laxative 5 Laxative 5 t_as_ne Laxative 5 MG MG eded} MG PreserVisio PreserVisio No PreserVisi n AREDS - n AREDS - on AREDS - Atorvastati Atorvastati No Atorvastat n Calcium n Calcium in Calcium 40 MG 40 MG 40 MG glipiZIDE glipiZIDE No 1{table QD glipiZIDE 10 MG 10 MG t} 10 MG glipiZIDE 5 glipiZIDE 5 No 1{table QD glipiZIDE MG MG t} 5 MG glipiZIDE glipiZIDE No glipiZIDE 10 MG 10 MG 10 MG Citalopram Citalopram No Citalopram Hydrobromid Hydrobromid Hydrobromi e 20 MG e 20 MG de 20 MG Basaglar Basaglar No QD Basaglar KwikPen 100 KwikPen 100 KwikPen UNIT/ML UNIT/ML 100 UNIT/ML Ipratropium Ipratropium No Ipratropiu -Albuterol -Albuterol m-Albutero 0.5-2.5 (3) 0.5-2.5 (3) l 0.5-2.5 MG/3ML MG/3ML (3) MG/3ML Multivitami Multivitami No Multivitam n Adult - n Adult - in Adult - Atorvastati Atorvastati No 1{table QD Atorvastat n Calcium n Calcium t} in Calcium 40 MG 40 MG 40 MG Dexcom G6 Dexcom G6 No Dexcom G6 Sensor - Sensor - Sensor - Dexcom G6 Dexcom G6 No Dexcom G6 [employer] - End [employer]ing Department - End [employer]ing Department - Advair HFA Advair HFA No 2{puffs BID Advair HFA 230-21 230-21 } 230-21 MCG/ACT MCG/ACT MCG/ACT Carvedilol Carvedilol No Carvedilol 12.5 MG 12.5 MG 12.5 MG Basaglar Basaglar No Basaglar KwikPen 100 KwikPen 100 KwikPen UNIT/ML UNIT/ML 100 UNIT/ML Citalopram Citalopram No 1{table QD Citalopram Hydrobromid Hydrobromid t} Hydrobromi e 40 MG e 40 MG de 40 MG glipiZIDE glipiZIDE No glipiZIDE 10 MG 10 MG 10 MG Tums E-X Tums E-X No 1{table TID Tums E-X 750 750 MG 750 750 MG t} 750 750 MG Citalopram Citalopram No Citalopram Hydrobromid Hydrobromid Hydrobromi e 20 MG e 20 MG de 20 MG Atorvastati Atorvastati No Atorvastat n Calcium n Calcium in Calcium 40 MG 40 MG 40 MG Atorvastati Atorvastati No 1{table QD Atorvastat n Calcium n Calcium t} in Calcium 40 MG 40 MG 40 MG Ipratropium Ipratropium No Ipratropiu -Albuterol -Albuterol m-Albutero 0.5-2.5 (3) 0.5-2.5 (3) l 0.5-2.5 MG/3ML MG/3ML (3) MG/3ML Dexcom G6 Dexcom G6 No Dexcom G6 Sensor - Sensor - Sensor - Dexcom G6 Dexcom G6 No Dexcom G6 [employer] - End [employer]ing Department - End [employer]ing Department - Advair HFA Advair HFA No 2{puffs BID Advair HFA 230-21 230-21 } 230-21 MCG/ACT MCG/ACT MCG/ACT glipiZIDE 5 glipiZIDE 5 No 1{table QD glipiZIDE MG MG t} 5 MG Contour Contour No Contour Test - Test - Test - Gentle Gentle No 1{table QD Gentle Laxative 5 Laxative 5 t_as_ne Laxative 5 MG MG eded} MG PreserVisio PreserVisio No PreserVisi n AREDS - n AREDS - on AREDS - Dexcom G6 Dexcom G6 No Dexcom G6 Transmitter Transmitter Transmitte - - r - Multivitami Multivitami No Multivitam n Adult - n Adult - in Adult - Eliquis 2.5 Eliquis 2.5 No 1{table Eliquis mg mg t} 2.5 mg BD Pen BD Pen No BD Pen Needle Christina Needle Christina Needle U/F 32G X 4 U/F 32G X 4 Christina U/F MM MM 32G X 4 MM Stool Stool No Stool Softener Softener Softener Carvedilol Carvedilol No Carvedilol 12.5 MG 12.5 MG 12.5 MG glipiZIDE glipiZIDE No 1{table QD glipiZIDE 10 MG 10 MG t} 10 MG Carvedilol Carvedilol No Carvedilol 12.5 MG 12.5 MG 12.5 MG BD Pen BD Pen No BD Pen Needle Christina Needle Christina Needle U/F 32G X 4 U/F 32G X 4 Christina U/F MM MM 32G X 4 MM Ipratropium Ipratropium No Ipratropiu -Albuterol -Albuterol m-Albutero 0.5-2.5 (3) 0.5-2.5 (3) l 0.5-2.5 MG/3ML MG/3ML (3) MG/3ML Dexcom G6 Dexcom G6 No Dexcom G6 Transmitter Transmitter Transmitte - - r - Contour Contour No Contour Test - Test - Test - Citalopram Citalopram No Citalopram Hydrobromid Hydrobromid Hydrobromi e 20 MG e 20 MG de 20 MG Gentle Gentle No 1{table QD Gentle Laxative 5 Laxative 5 t_as_ne Laxative 5 MG MG eded} MG Stool Stool No Stool Softener Softener Softener Dexcom G6 Dexcom G6 No Dexcom G6 End [employer]ing Department - End Finder Forming Department - End Finder Forming Department - Atorvastati Atorvastati No 1{table QD Atorvastat n Calcium n Calcium t} in Calcium 40 MG 40 MG 40 MG Dexcom G6 Dexcom G6 No Dexcom G6 Sensor - Sensor - Sensor - Eliquis 2.5 Eliquis 2.5 No 1{table Eliquis mg mg t} 2.5 mg glipiZIDE 5 glipiZIDE 5 No 1{table QD glipiZIDE MG MG t} 5 MG glipiZIDE glipiZIDE No glipiZIDE 10 MG 10 MG 10 MG Basaglar Basaglar No Basaglar KwikPen 100 KwikPen 100 KwikPen UNIT/ML UNIT/ML 100 UNIT/ML Citalopram Citalopram No 1{table QD Citalopram Hydrobromid Hydrobromid t} Hydrobromi e 40 MG e 40 MG de 40 MG PreserVisio PreserVisio No PreserVisi n AREDS - n AREDS - on AREDS - Tums E-X Tums E-X No 1{table TID Tums E-X 750 750 MG 750 750 MG t} 750 750 MG Carvedilol Carvedilol No Carvedilol 12.5 MG 12.5 MG 12.5 MG Advair HFA Advair HFA No 2{puffs BID Advair HFA 230-21 230-21 } 230-21 MCG/ACT MCG/ACT MCG/ACT Multivitami Multivitami No Multivitam n Adult - n Adult - in Adult - Atorvastati Atorvastati No Atorvastat n Calcium n Calcium in Calcium 40 MG 40 MG 40 MG Ipratropium Ipratropium No Ipratropiu -Albuterol -Albuterol m-Albutero 0.5-2.5 (3) 0.5-2.5 (3) l 0.5-2.5 MG/3ML MG/3ML (3) MG/3ML Dexcom G6 Dexcom G6 No Dexcom G6 Sensor - Sensor - Sensor - Dexcom G6 Dexcom G6 No Dexcom G6 End [employer]ing Department - End Finder Forming Department - End Finder Forming Department - Atorvastati Atorvastati No Atorvastat n Calcium n Calcium in Calcium 40 MG 40 MG 40 MG Pantoprazol Pantoprazol No Pantoprazo e Sodium e Sodium le Sodium BD Pen BD Pen No BD Pen Needle Christina Needle Christina Needle U/F 32G X 4 U/F 32G X 4 Christina U/F MM MM 32G X 4 MM Dexcom G6 Dexcom G6 No Dexcom G6 Transmitter Transmitter Transmitte - - r - Melatonin Melatonin No Melatonin Contour Contour No Contour Test - Test - Test - Aspirin Aspirin No Aspirin Carvedilol Carvedilol No Carvedilol 12.5 MG 12.5 MG 12.5 MG Eliquis 2.5 Eliquis 2.5 No 1{table Eliquis mg mg t} 2.5 mg glipiZIDE glipiZIDE No 1{table QD glipiZIDE 10 MG 10 MG t} 10 MG Basaglar Basaglar No Basaglar KwikPen 100 KwikPen 100 KwikPen UNIT/ML UNIT/ML 100 UNIT/ML Multivitami Multivitami No Multivitam n Adult - n Adult - in Adult - Stool Stool No Stool Softener Softener Softener glipiZIDE glipiZIDE No glipiZIDE 10 MG 10 MG 10 MG PreserVisio PreserVisio No PreserVisi n AREDS - n AREDS - on AREDS - Citalopram Citalopram No 1{table QD Citalopram Hydrobromid Hydrobromid t} Hydrobromi e 40 MG e 40 MG de 40 MG Tums E-X Tums E-X No 1{table TID Tums E-X 750 750 MG 750 750 MG t} 750 750 MG Carvedilol Carvedilol No Carvedilol 12.5 MG 12.5 MG 12.5 MG Citalopram Citalopram No Citalopram Hydrobromid Hydrobromid Hydrobromi e 20 MG e 20 MG de 20 MG Gentle Gentle No 1{table QD Gentle Laxative 5 Laxative 5 t_as_ne Laxative 5 MG MG eded} MG Basaglar Basaglar No QD Basaglar KwikPen 100 KwikPen 100 KwikPen UNIT/ML UNIT/ML 100 UNIT/ML Advair HFA Advair HFA No 2{puffs BID Advair HFA 230-21 230-21 } 230-21 MCG/ACT MCG/ACT MCG/ACT Ondansetron Ondansetron No Ondansetro n Pregabalin Pregabalin No Pregabalin Ipratropium Ipratropium No Ipratropiu -Albuterol -Albuterol m-Albutero 0.5-2.5 (3) 0.5-2.5 (3) l 0.5-2.5 MG/3ML MG/3ML (3) MG/3ML Dexcom G6 Dexcom G6 No Dexcom G6 Sensor - Sensor - Sensor - Dexcom G6 Dexcom G6 No Dexcom G6 End [employer]ing Department - End Finder Forming Department - End Finder Forming Department - Atorvastati Atorvastati No Atorvastat n Calcium n Calcium in Calcium 40 MG 40 MG 40 MG Pantoprazol Pantoprazol No Pantoprazo e Sodium e Sodium le Sodium BD Pen BD Pen No BD Pen Needle Christina Needle Christina Needle U/F 32G X 4 U/F 32G X 4 Christina U/F MM MM 32G X 4 MM Dexcom G6 Dexcom G6 No Dexcom G6 Transmitter Transmitter Transmitte - - r - Melatonin Melatonin No Melatonin Contour Contour No Contour Test - Test - Test - Aspirin Aspirin No Aspirin Carvedilol Carvedilol No Carvedilol 12.5 MG 12.5 MG 12.5 MG Eliquis 2.5 Eliquis 2.5 No 1{table Eliquis mg mg t} 2.5 mg glipiZIDE glipiZIDE No 1{table QD glipiZIDE 10 MG 10 MG t} 10 MG Basaglar Basaglar No Basaglar KwikPen 100 KwikPen 100 KwikPen UNIT/ML UNIT/ML 100 UNIT/ML Multivitami Multivitami No Multivitam n Adult - n Adult - in Adult - Stool Stool No Stool Softener Softener Softener glipiZIDE glipiZIDE No glipiZIDE 10 MG 10 MG 10 MG PreserVisio PreserVisio No PreserVisi n AREDS - n AREDS - on AREDS - Citalopram Citalopram No 1{table QD Citalopram Hydrobromid Hydrobromid t} Hydrobromi e 40 MG e 40 MG de 40 MG Tums E-X Tums E-X No 1{table TID Tums E-X 750 750 MG 750 750 MG t} 750 750 MG Carvedilol Carvedilol No Carvedilol 12.5 MG 12.5 MG 12.5 MG Citalopram Citalopram No Citalopram Hydrobromid Hydrobromid Hydrobromi e 20 MG e 20 MG de 20 MG Gentle Gentle No 1{table QD Gentle Laxative 5 Laxative 5 t_as_ne Laxative 5 MG MG eded} MG Basaglar Basaglar No QD Basaglar KwikPen 100 KwikPen 100 KwikPen UNIT/ML UNIT/ML 100 UNIT/ML Advair HFA Advair HFA No 2{puffs BID Advair HFA 230-21 230-21 } 230-21 MCG/ACT MCG/ACT MCG/ACT Ondansetron Ondansetron No Ondansetro n Pregabalin Pregabalin No Pregabalin Multivitami Multivitami No Multivitam n Adult - n Adult - in Adult - Stool Stool No Stool Softener Softener Softener Citalopram Citalopram No Citalopram Hydrobromid Hydrobromid Hydrobromi e 20 MG e 20 MG de 20 MG Gentle Gentle No 1{table QD Gentle Laxative 5 Laxative 5 t_as_ne Laxative 5 MG MG eded} MG BD Pen BD Pen No BD Pen Needle Christina Needle Christina Needle U/F 32G X 4 U/F 32G X 4 Christina U/F MM MM 32G X 4 MM Atorvastati Atorvastati No Atorvastat n Calcium n Calcium in Calcium 40 MG 40 MG 40 MG Ipratropium Ipratropium No Ipratropiu -Albuterol -Albuterol m-Albutero 0.5-2.5 (3) 0.5-2.5 (3) l 0.5-2.5 MG/3ML MG/3ML (3) MG/3ML Contour Contour No Contour Test - Test - Test - Pantoprazol Pantoprazol No Pantoprazo e Sodium e Sodium le Sodium Aspirin Aspirin No Aspirin Advair HFA Advair HFA No 2{puffs BID Advair HFA 230-21 230-21 } 230-21 MCG/ACT MCG/ACT MCG/ACT Citalopram Citalopram No 1{table QD Citalopram Hydrobromid Hydrobromid t} Hydrobromi e 20 MG e 20 MG de 20 MG Carvedilol Carvedilol No Carvedilol 12.5 MG 12.5 MG 12.5 MG Tums E-X Tums E-X No 1{table TID Tums E-X 750 750 MG 750 750 MG t} 750 750 MG Atorvastati Atorvastati No 1{table QD Atorvastat n Calcium n Calcium t} in Calcium 40 MG 40 MG 40 MG Basaglar Basaglar No Basaglar KwikPen 100 KwikPen 100 KwikPen UNIT/ML UNIT/ML 100 UNIT/ML PreserVisio PreserVisio No PreserVisi n AREDS - n AREDS - on AREDS - Multivitami Multivitami No Multivitam n Adult - n Adult - in Adult - Stool Stool No Stool Softener Softener Softener Citalopram Citalopram No Citalopram Hydrobromid Hydrobromid Hydrobromi e 20 MG e 20 MG de 20 MG Gentle Gentle No 1{table QD Gentle Laxative 5 Laxative 5 t_as_ne Laxative 5 MG MG eded} MG BD Pen BD Pen No BD Pen Needle Christina Needle Christina Needle U/F 32G X 4 U/F 32G X 4 Christina U/F MM MM 32G X 4 MM Atorvastati Atorvastati No Atorvastat n Calcium n Calcium in Calcium 40 MG 40 MG 40 MG Ipratropium Ipratropium No Ipratropiu -Albuterol -Albuterol m-Albutero 0.5-2.5 (3) 0.5-2.5 (3) l 0.5-2.5 MG/3ML MG/3ML (3) MG/3ML Contour Contour No Contour Test - Test - Test - Pantoprazol Pantoprazol No Pantoprazo e Sodium e Sodium le Sodium Aspirin Aspirin No Aspirin Advair HFA Advair HFA No 2{puffs BID Advair HFA 230-21 230-21 } 230-21 MCG/ACT MCG/ACT MCG/ACT Citalopram Citalopram No 1{table QD Citalopram Hydrobromid Hydrobromid t} Hydrobromi e 20 MG e 20 MG de 20 MG Carvedilol Carvedilol No Carvedilol 12.5 MG 12.5 MG 12.5 MG Tums E-X Tums E-X No 1{table TID Tums E-X 750 750 MG 750 750 MG t} 750 750 MG Atorvastati Atorvastati No 1{table QD Atorvastat n Calcium n Calcium t} in Calcium 40 MG 40 MG 40 MG Basaglar Basaglar No Basaglar KwikPen 100 KwikPen 100 KwikPen UNIT/ML UNIT/ML 100 UNIT/ML PreserVisio PreserVisio No PreserVisi n AREDS - n AREDS - on AREDS - Ipratropium Ipratropium No Ipratropiu -Albuterol -Albuterol m-Albutero 0.5-2.5 (3) 0.5-2.5 (3) l 0.5-2.5 MG/3ML MG/3ML (3) MG/3ML Stool Stool No Stool Softener Softener Softener Contour Contour No Contour Test - Test - Test - Advair HFA Advair HFA No 2{puffs BID Advair HFA 230-21 230-21 } 230-21 MCG/ACT MCG/ACT MCG/ACT Tums E-X Tums E-X No 1{table TID Tums E-X 750 750 MG 750 750 MG t} 750 750 MG Citalopram Citalopram No 1{table QD Citalopram Hydrobromid Hydrobromid t} Hydrobromi e 20 MG e 20 MG de 20 MG PreserVisio PreserVisio No PreserVisi n AREDS - n AREDS - on AREDS - Pantoprazol Pantoprazol No Pantoprazo e Sodium e Sodium le Sodium Multivitami Multivitami No Multivitam n Adult - n Adult - in Adult - Atorvastati Atorvastati No 1{table QD Atorvastat n Calcium n Calcium t} in Calcium 40 MG 40 MG 40 MG Citalopram Citalopram No Citalopram Hydrobromid Hydrobromid Hydrobromi e 20 MG e 20 MG de 20 MG Aspirin Aspirin No Aspirin Gentle Gentle No 1{table QD Gentle Laxative 5 Laxative 5 t_as_ne Laxative 5 MG MG eded} MG Atorvastati Atorvastati No Atorvastat n Calcium n Calcium in Calcium 40 MG 40 MG 40 MG Basaglar Basaglar No Basaglar KwikPen 100 KwikPen 100 KwikPen UNIT/ML UNIT/ML 100 UNIT/ML Carvedilol Carvedilol No Carvedilol 12.5 MG 12.5 MG 12.5 MG BD Pen BD Pen No BD Pen Needle Christina Needle Christina Needle U/F 32G X 4 U/F 32G X 4 Christina U/F MM MM 32G X 4 MM Aspirin Aspirin No Aspirin Contour Contour No Contour Test - Test - Test - Pantoprazol Pantoprazol No Pantoprazo e Sodium e Sodium le Sodium Tums E-X Tums E-X No 1{table TID Tums E-X 750 750 MG 750 750 MG t} 750 750 MG Stool Stool No Stool Softener Softener Softener Multivitami Multivitami No Multivitam n Adult - n Adult - in Adult - Advair HFA Advair HFA No 2{puffs BID Advair HFA 230-21 230-21 } 230-21 MCG/ACT MCG/ACT MCG/ACT Citalopram Citalopram No Citalopram Hydrobromid Hydrobromid Hydrobromi e 20 MG e 20 MG de 20 MG Basaglar Basaglar No Basaglar KwikPen 100 KwikPen 100 KwikPen UNIT/ML UNIT/ML 100 UNIT/ML PreserVisio PreserVisio No PreserVisi n AREDS - n AREDS - on AREDS - Ipratropium Ipratropium No Ipratropiu -Albuterol -Albuterol m-Albutero 0.5-2.5 (3) 0.5-2.5 (3) l 0.5-2.5 MG/3ML MG/3ML (3) MG/3ML Atorvastati Atorvastati No Atorvastat n Calcium n Calcium in Calcium 40 MG 40 MG 40 MG BD Pen BD Pen No BD Pen Needle Christina Needle Christina Needle U/F 32G X 4 U/F 32G X 4 Christina U/F MM MM 32G X 4 MM Carvedilol Carvedilol No Carvedilol 12.5 MG 12.5 MG 12.5 MG Atorvastati Atorvastati No 1{table QD Atorvastat n Calcium n Calcium t} in Calcium 40 MG 40 MG 40 MG Gentle Gentle No 1{table QD Gentle Laxative 5 Laxative 5 t_as_ne Laxative 5 MG MG eded} MG Citalopram Citalopram No 1{table QD Citalopram Hydrobromid Hydrobromid t} Hydrobromi e 20 MG e 20 MG de 20 MG Aspirin Aspirin No Aspirin Contour Contour No Contour Test - Test - Test - Pantoprazol Pantoprazol No Pantoprazo e Sodium e Sodium le Sodium Tums E-X Tums E-X No 1{table TID Tums E-X 750 750 MG 750 750 MG t} 750 750 MG Stool Stool No Stool Softener Softener Softener Multivitami Multivitami No Multivitam n Adult - n Adult - in Adult - Advair HFA Advair HFA No 2{puffs BID Advair HFA 230-21 230-21 } 230-21 MCG/ACT MCG/ACT MCG/ACT Citalopram Citalopram No Citalopram Hydrobromid Hydrobromid Hydrobromi e 20 MG e 20 MG de 20 MG Basaglar Basaglar No Basaglar KwikPen 100 KwikPen 100 KwikPen UNIT/ML UNIT/ML 100 UNIT/ML PreserVisio PreserVisio No PreserVisi n AREDS - n AREDS - on AREDS - Ipratropium Ipratropium No Ipratropiu -Albuterol -Albuterol m-Albutero 0.5-2.5 (3) 0.5-2.5 (3) l 0.5-2.5 MG/3ML MG/3ML (3) MG/3ML Atorvastati Atorvastati No Atorvastat n Calcium n Calcium in Calcium 40 MG 40 MG 40 MG BD Pen BD Pen No BD Pen Needle Christina Needle Christina Needle U/F 32G X 4 U/F 32G X 4 Christina U/F MM MM 32G X 4 MM Carvedilol Carvedilol No Carvedilol 12.5 MG 12.5 MG 12.5 MG Atorvastati Atorvastati No 1{table QD Atorvastat n Calcium n Calcium t} in Calcium 40 MG 40 MG 40 MG Gentle Gentle No 1{table QD Gentle Laxative 5 Laxative 5 t_as_ne Laxative 5 MG MG eded} MG Citalopram Citalopram No 1{table QD Citalopram Hydrobromid Hydrobromid t} Hydrobromi e 20 MG e 20 MG de 20 MG Aspirin Aspirin No Aspirin Contour Contour No Contour Test - Test - Test - Pantoprazol Pantoprazol No Pantoprazo e Sodium e Sodium le Sodium Tums E-X Tums E-X No 1{table TID Tums E-X 750 750 MG 750 750 MG t} 750 750 MG Stool Stool No Stool Softener Softener Softener Multivitami Multivitami No Multivitam n Adult - n Adult - in Adult - Advair HFA Advair HFA No 2{puffs BID Advair HFA 230-21 230-21 } 230-21 MCG/ACT MCG/ACT MCG/ACT Citalopram Citalopram No Citalopram Hydrobromid Hydrobromid Hydrobromi e 20 MG e 20 MG de 20 MG Basaglar Basaglar No Basaglar KwikPen 100 KwikPen 100 KwikPen UNIT/ML UNIT/ML 100 UNIT/ML PreserVisio PreserVisio No PreserVisi n AREDS - n AREDS - on AREDS - Ipratropium Ipratropium No Ipratropiu -Albuterol -Albuterol m-Albutero 0.5-2.5 (3) 0.5-2.5 (3) l 0.5-2.5 MG/3ML MG/3ML (3) MG/3ML Atorvastati Atorvastati No Atorvastat n Calcium n Calcium in Calcium 40 MG 40 MG 40 MG BD Pen BD Pen No BD Pen Needle Christina Needle Christina Needle U/F 32G X 4 U/F 32G X 4 Christina U/F MM MM 32G X 4 MM Carvedilol Carvedilol No Carvedilol 12.5 MG 12.5 MG 12.5 MG Atorvastati Atorvastati No 1{table QD Atorvastat n Calcium n Calcium t} in Calcium 40 MG 40 MG 40 MG Gentle Gentle No 1{table QD Gentle Laxative 5 Laxative 5 t_as_ne Laxative 5 MG MG eded} MG Citalopram Citalopram No 1{table QD Citalopram Hydrobromid Hydrobromid t} Hydrobromi e 20 MG e 20 MG de 20 MG Aspirin Aspirin No Aspirin Contour Contour No Contour Test - Test - Test - Pantoprazol Pantoprazol No Pantoprazo e Sodium e Sodium le Sodium Tums E-X Tums E-X No 1{table TID Tums E-X 750 750 MG 750 750 MG t} 750 750 MG Stool Stool No Stool Softener Softener Softener Multivitami Multivitami No Multivitam n Adult - n Adult - in Adult - Immunizations Ordered Immunization Filled Immunization Date Status Commen ts Source Name Name FluAD FluAD 2021-03-30 Completed [facility]:13:00 - [facility] FluAD FluAD 2021-03-30 Completed [facility] 13:13:00 - [facility] FluAD FluAD 2021-03-30 Completed [facility] 13[facility]13:00 - [facility] FluAD FluAD 2021-03-30 Completed [facility] 13[facility]13:00 - [facility] FluAD FluAD 2021-03-30 Completed [facility] 13:13:00 - [facility] FluAD FluAD 2021-03-30 Completed [facility] 13:13:00 - [facility] FluAD FluAD 2021-03-30 Completed [facility] 13:13:00 - [facility] FluAD FluAD 2021-03-30 Completed [facility] 13:13:00 - [facility] FluAD FluAD 2021-03-30 Completed [facility] 13[facility]13:00 - [facility] FluAD FluAD 2021-03-30 Completed [facility] 13:13:00 - [facility] FluAD FluAD 2021-03-30 Completed [facility] 13[facility]13:00 - [facility] FluAD FluAD 2021-03-30 Completed [facility] 13:13:00 - [facility] FluAD FluAD 2021-03-30 Completed [facility] 13:13:00 [facility] FluAD FluAD 2021-03-30 Completed [facility] 13:13:00 [facility] FluAD FluAD 2021-03-30 Completed [facility] 13[facility]13:00 [facility] FluAD FluAD 2021-03-30 Completed [facility] 13:13:00 - [facility] FluAD FluAD 2021-03-30 Completed [facility] 13:13:00 [facility] COVID-19 Vaccine COVID-19 Vaccine 2020-08-19 [facility] ([facility] 09:17:00 [facility] COVID-19 Vaccine COVID-19 Vaccine 2020-08-19 Completed [facility] (Andrea) 09:17:00 [facility] COVID-19 Vaccine COVID-19 Vaccine 2020-08-19 Completed [facility] (Andrea) 09:17:00 [facility] COVID-19 Vaccine COVID-19 Vaccine 2020-08-19 Completed [facility] (Andrea) 09:17:00 [facility] COVID-19 Vaccine COVID-19 Vaccine 2020-08-19 Completed [facility] (Andrea) 09:17:00 [facility] COVID-19 Vaccine COVID-19 Vaccine 2020-08-19 Completed [facility] (Andrea) 09:17:00 [facility] COVID-19 Vaccine COVID-19 Vaccine 2020-08-19 Completed [facility] (Andrea) 09:17:00 [facility] COVID-19 Vaccine COVID-19 Vaccine 2020-08-19 Completed [facility] (Andrea) 09:17:00 [facility] COVID-19 Vaccine COVID-19 Vaccine 2020-08-19 Completed [facility] (Andrea) 09:17:00 [facility] COVID-19 Vaccine COVID-19 Vaccine 2020-08-19 Completed [facility] ([facility] (Andrea) 09:17:00 - [facility] COVID-19 Vaccine COVID-19 Vaccine 2020-08-19 Completed [facility] ([facility] (Andrea) 09:17:00 [facility] COVID-19 Vaccine COVID-19 Vaccine 2020-08-19 Completed [facility] ([facility] (Andrea) 09:17:00 [facility] COVID-19 Vaccine COVID-19 Vaccine 2020-08-19 Completed [facility] ([facility] (Andrea) 09:17:00 [facility] COVID-19 Vaccine COVID-19 Vaccine 2020-08-19 Completed [facility] ([facility] (Andrea) 09:17:00 [facility] COVID-19 Vaccine COVID-19 Vaccine 2020-08-19 Completed [facility] ([facility] (Andrea) 09:17:00 [facility] COVID-19 Vaccine COVID-19 Vaccine 2020-08-19 Completed [facility] ([facility] (Andrea) 09:17:00 [facility] COVID-19 Vaccine COVID-19 Vaccine 2020-08-19 Completed [facility] ([facility] (Andrea) 09:17:00 [facility] COVID-19 Vaccine COVID-19 Vaccine 2020-08-19 Completed [facility] ([facility] (Andrea) 09:17:00 [facility] COVID-19 Vaccine COVID-19 Vaccine 2020-08-19 Completed [facility] ([facility] (Andrea) 09:17:00 [facility] Vital Signs Vital Name Observation Time Observation Value Comments Source height 2022-02-17 15:00:00 70 [in_i] [facility] weight 2022-02-17 15:00:00 208 [lb_av] [facility] temperature 2022-02-17 15:00:00 98.1 [degF] [facility] bmi 2022-02-17 15:00:00 29.84 kg/m2 [facility] blood pressure 2022-02-17 15:00:00 121 mm[Hg] [facility] - systolic [facility] blood pressure 2022-02-17 15:00:00 61 mm[Hg] [facility] - diastolic [facility] height 2022-01-06 14:30:00 70 [in_i] [facility] pirit - [facility] weight 2022-01-06 14:30:00 208 [lb_av] Common S pirit - [facility] bmi 2022-01-06 14:30:00 29.84 kg/m2 Common S [facility] - [facility] blood pressure 2022-01-06 14:30:00 137 mm[Hg] [facility] - systolic [facility] blood pressure 2022-01-06 14:30:00 79 mm[Hg] [facility] - diastolic [facility] height 2021-11-03 09:45:00 70 [in_i] Common S p[facility] - [facility] weight 2021-11-03 09:45:00 210 [lb_av] Common S p[facility] - [facility] bmi 2021-11-03 09:45:00 30.13 kg/m2 Common S pirit - [facility] blood pressure 2021-11-03 09:45:00 144 mm[Hg] [facility] - systolic [facility] blood pressure 2021-11-03 09:45:00 86 mm[Hg] [facility] - diastolic [facility] height 2021-07-28 14:10:00 70 [in_i] Common S pirit - [facility] weight 2021-07-28 14:10:00 211.8 [lb_av] [facility] temperature 2021-07-28 14:10:00 97.5 [degF] Common S pirit - [facility] bmi 2021-07-28 14:10:00 30.39 kg/m2 Common S pirit - [facility] oximetry 2021-07-28 14:10:00 93 % [facility] S pirit [facility] respiratory rate 2021-07-28 14:10:00 16 /min Comm on [facility] blood pressure 2021-07-28 14:10:00 134 mm[Hg] [facility] - systolic [facility] blood pressure 2021-07-28 14:10:00 63 mm[Hg] Common [facility] - diastolic [facility] height 2021-07-28 13:20:00 70 [in_i] Common S pirit [facility] weight 2021-07-28 13:20:00 211.8 [lb_av] Common [facility] temperature 2021-07-28 13:20:00 97.5 [degF] Common S pirit [facility] bmi 2021-07-28 13:20:00 30.39 kg/m2 Common S [facility] oximetry 2021-07-28 13:20:00 93 % Common [facility] respiratory rate 2021-07-28 13:20:00 16 /min Comm on [facility] blood pressure 2021-07-28 13:20:00 134 mm[Hg] Common [facility] - systolic [facility] blood pressure 2021-07-28 13:20:00 62 mm[Hg] Common [facility] - diastolic [facility] height 2021-04-28 13:10:00 70 [in_i] Common S [facility] weight 2021-04-28 13:10:00 215.9 [lb_av] Common [facility] temperature 2021-04-28 13:10:00 97.3 [degF] Common S pirit [facility] bmi 2021-04-28 13:10:00 30.98 kg/m2 Common S [facility] oximetry 2021-04-28 13:10:00 95 % Common S [facility] respiratory rate 2021-04-28 13:10:00 17 /min Comm on [facility] blood pressure 2021-04-28 13:10:00 121 mm[Hg] Common [facility] - systolic [facility] blood pressure 2021-04-28 13:10:00 60 mm[Hg] Common [facility] - diastolic [facility] height 2021-03-12 09:30:00 70 [in_i] [facility] weight 2021-03-12 09:30:00 211.4 [lb_av] [facility] temperature 2021-03-12 09:30:00 97.7 [degF] [facility] bmi 2021-03-12 09:30:00 30.33 kg/m2 [facility] S pirit [facility] oximetry 2021-03-12 09:30:00 95 % [facility] respiratory rate 2021-03-12 09:30:00 16 /min Comm on [facility] blood pressure 2021-03-12 09:30:00 132 mm[Hg] Common [facility] - systolic [facility] blood pressure 2021-03-12 09:30:00 67 mm[Hg] Common [facility] - diastolic [facility] Procedures Procedure Date / Time Performed Performing Clinician Lupe bowie [id number] 2021-10-18 00:00:00 [facility] [place] Encounters Start End Encounter Admission Attending Care Care Encounter Source Date/Time Date/Time Type Type Clinicians Facility Department ID 2022-02-18 Outpatient [facility], STLMLC STLMLC [id number] Common 12:05:01 [facility] 2022-01-01 Outpatient [facility], STLMLC STLMLC [id number] Common 10:24:01 [facility] 2021-12-29 Outpatient [facility], STLMLC STLMLC [id number] Common 08:34:00 [facility] 2021-12-16 Outpatient [facility] [id number] [place] 14:42:21 [id number] Health 2021-11-19 Outpatient [facility], STLMLC STLMLC [id number] Common 08:42:01 [facility] 2021-11-03 Outpatient [facility], STLMLC STLMLC [id number] Common 10:33:01 N[facility] 2021-10-15 Outpatient 3 [id number] ENCPL REF [facility] 08:19:25 [facility] 2021-10-14 Outpatient 3 [id number] ENCPL REF [facility] 11:59:03 0517 [facility] [place] 2021-06-25 Outpatient [facility], STLMLC STLMLC [id number] Common 14:22:06 Naveed [id number] [facility] 2021-06-25 Outpatient [facility], STLMLC STLMLC [id number] Common 14:13:51 Naveed [id number] [facility] 2021-06-25 Outpatient [facility], STLMLC STLMLC [id number] Common 13:38:12 Naveed [id number] [facility] 2021-06-25 Outpatient [facility], STLMLC STLMLC [id number] Common 12:43:29 Naveed [id number] [facility] 2021-06-25 Outpatient [facility], STLMLC STLMLC [id number] Common 12:42:27 Naveed [id number] [facility] 2021-06-25 Outpatient [facility], STLMLC STLMLC [id number] Common 12:31:12 Naveed [id number] [facility] 2021-06-25 Outpatient [facility], STLMLC STLMLC [id number] Common 12:31:03 Naveed 71532 [facility] 2021-06-25 Outpatient [facility], STLMLC STLMLC [id number] Common 12:30:21 Naveed [id number] [facility] 2021-06-25 Outpatient [facility], STLMLC STLMLC [id number] Common 11:00:43 Naveed [id number] [facility] 2022-04-03 2022-04-03 (TEL) STLMLC STLMLC [id number] Co mmon 00:00:00 00:00:00 [facility] 2022-02-17 2022-02-17 (TEL) STLMLC STLMLC [id number] Co mmon 00:00:00 00:00:00 [facility] 2022-02-17 2022-02-17 OFFICE STLMLC STLMLC [id number] Co mmon 00:00:00 00:00:00 VISIT [facility] PT - CHI LEVEL 4 [facility] 2022-01-06 2022-01-06 OFFICE STLMLC STLMLC [id number] Co mmon 00:00:00 00:00:00 VISIT [facility] PT - CHI LEVEL 4 [facility] 2022-01-02 2022-01-02 Emergency E LONG, MHBL MHBL [id number] MHBL 12:12:00 16:33:00 CAREY 2022-01-01 2022-01-01 (TEL) STLMLC STLMLC [id number] Co mmon 00:00:00 00:00:00 [facility] 2021-12-31 2021-12-31 (TEL) STLMLC STLMLC [id number] Co mmon 00:00:00 00:00:00 [facility] 2021-12-14 2021-12-16 Inpatient E SAKORTNEY, MHBL MED [id number] MHBL 18:26:00 22:14:00 CAMELIA 2021-12-03 2021-12-04 Emergency E DEVONTE, MHBL MHBL [id number] MHBL 18:19:00 09:53:00 RONNIE 2021-12-01 2021-12-01 Outpatient COH COH PIJFJKR ZIB COH 00:00:00 00:00:00 [id number] 2021-11-25 2021-11-26 Outpatient E CAROLINE, MHBL MED [id number] MHBL 10:37:00 19:12:00 MONSE 2021-11-24 2021-11-24 (TEL) STLMLC STLMLC [id number] Co mmon 00:00:00 00:00:00 [facility] 2021-10-16 2021-11-03 Inpatient 3 NATHANIEL, ENCPL GILDA [id number] [facility] 23:26:00 21:40:00 CHILANGO 0519 Health Rehabil [facility]ation Lynsey camargo 2021-11-03 2021-11-03 OFFICE STLMLC STLMLC [id number] Co mmon 00:00:00 00:00:00 VISIT NEW Spir it PT LEVEL 4 [facility] 2021-10-17 2021-10-17 (TEL) STLMLC STLMLC [id number] Co mmon 00:00:00 00:00:00 [facility] 2021-08-12 2021-08-12 (TEL) STLMLC STLMLC [id number] Co mmon 00:00:00 00:00:00 [facility] 2021-07-28 2021-07-28 OFFICE STLMLC STLMLC [id number] Co mmon 00:00:00 00:00:00 VISIT [facility] PT - CHI LEVEL 4 [facility] 2021-07-28 2021-07-28 SUB ANNUAL STLMLC STLMLC [id number] Common 00:00:00 00:00:00 MCR [facility] VISIT [facility] 2021-06-12 2021-06-12 (TEL) STLMLC STLMLC [id number] Co mmon 00:00:00 00:00:00 [facility] 2021-05-21 2021-05-21 (TEL) STLMLC STLMLC [id number] Co mmon 00:00:00 00:00:00 [facility] 2021-04-28 2021-04-28 OFFICE STLMLC STLMLC [id number] Co mmon 00:00:00 00:00:00 VISIT [facility] PT - CHI LEVEL [address] [place] [address] 2021-03-26 2021-03-26 (TEL) STLMLC STLMLC [id number] Co mmon 00:00:00 00:00:00 [facility] 2021-03-12 2021-03-12 OFFICE STLMLC STLMLC [id number] Co mmon 00:00:00 00:00:00 VISIT [facility] PT - CHI LEVEL 4 [facility] 2021-02-10 2021-02-10 Outpatient STLMLC STLMLC [id number] Common 00:00:00 00:00:00 [facility] 2021-01-31 2021-01-31 Outpatient STLMLC STLMLC [id number] Common 00:00:00 00:00:00 [facility] 2021-01-13 2021-01-13 Outpatient STLMLC STLMLC [id number] Common 00:00:00 00:00:00 [facility] 2021-01-08 2021-01-08 Outpatient STLMLC STLMLC [id number] Common 00:00:00 00:00:00 [facility] 2020-12-31 2020-12-31 Outpatient STLMLC STLMLC [id number] Common 00:00:00 00:00:00 [facility] 2020-12-11 2020-12-11 Outpatient STLMLC STLMLC [id number] Common 00:00:00 00:00:00 [facility] 2020-08-19 2020-08-19 Outpatient STLMLC STLMLC [id number] Common 00:00:00 00:00:00 [facility] 2020-07-19 2020-07-19 Outpatient STLMLC STLMLC [id number] Common 00:00:00 00:00:00 [facility] 2020-07-15 2020-07-15 Outpatient STLMLC STLMLC [id number] Common 00:00:00 00:00:00 [facility] 2020-06-14 2020-06-14 Outpatient STLMLC STLMLC [id number] Common 00:00:00 00:00:00 [facility] 2020-06-05 2020-06-05 Outpatient STLMLC STLMLC [id number] Common 00:00:00 00:00:00 [facility] 2020-04-23 2020-04-23 Outpatient STLMLC STLMLC [id number] Common 00:00:00 00:00:00 [facility] 2020-04-22 2020-04-22 Outpatient STLMLC STLMLC [id number] Common 00:00:00 00:00:00 [facility] 2020-04-17 2020-04-17 Outpatient STLMLC STLMLC [id number] Common 00:00:00 00:00:00 [facility] 2020-01-15 2020-01-15 Out[facility] [id number] Common 10:45:00 10:45:[address] [facility] 2019-10-16 2019-10-16 Outpatient [facility] [id number] Common 13:00:00 13:00:[address] [facility] 2019-07-17 2019-07-17 Outpatient [facility] [id number] Common 13:45:00 13:45:[address] [facility] 2019-06-14 2019-06-14 Outpatient [facility] [id number] Common 11:45:00 11:45:[address] [facility] 2019-06-07 2019-06-07 Outpatient [facility] [id number] Common 11:57:00 11:57:[address] [facility] 2019-05-17 2019-05-17 Out[facility] [id number] Common 11:30:00 11:30:[address] [facility] 2019-04-24 2019-04-24 Outpatient [facility] [id number] Common 14:52:00 14:52:[address] [facility] 2019-04-19 2019-04-19 Outpatient [facility] [id number] Common 14:45:00 14:45:[address] [facility] 2019-04-06 2019-04-06 Outpatient [facility] [id number] Common 08:35:00 08:35:[address] [facility] 2019-04-04 2019-04-04 Outpatient [facility] [id number] Common 08:34:00 08:34:[address] [facility] 2019-03-08 2019-03-08 [facility]patient [facility] [id number] Common 10:57:00 10:57:00 t [facility] [address] [facility] 2019-02-20 2019-02-20 Outpatient [facility] [id number] Common 14:00:00 14:00:00 t [facility] [address] [facility] Results Test Description Test Time Test Comments Results Result Comments Source HEMOGLOBIN A1C 2021-07-28 00:00:00 Test Item Value Reference Range Interpretation Comme nts A1C (test code = 4548-4) 8.8 HEMOGLOBIN [id number] 00:00:00 Test Item Value Reference Range Interpretation Comments A1C (test code = 4548-4) 8.3 HEMOGLOBIN [id number] 00:00:00 Test Item Value Reference Range Interpretation Comments A1C (test code = 4548-4) 10.3
[2022-05-06 16:39] LABS: Absolute Lymphocytes (CBC) 1.1 K/uL (0.7-4.9); Hematocrit 19.5 % (39.6-49.0); Lymphocytes % 32.8 % (15.3-44.8); MCV 115.9 fL (80-100); RBC Red Blood Cell Count 1.68 M/uL (4.33-5.43)
[2022-05-06 18:48] LABS: Anisocytosis 2+; Blood Morphology Comment NOTED (NOT SEEN); Macrocytosis 2+; Platelet Estimate ADEQ; White Blood Cell Scan OK (OK)
[2022-05-06] MEDS ORDERED: NA CHLORIDE 0.9% 500 ML ONE (19:46)
[2022-05-06] MEDS ORDERED: ACETAMINOPHEN 325 MG TABLET ONE (19:46)
[2022-05-06] MEDS ORDERED: DIPHENHYDRAMINE 50 MG/ML VIAL ONE (19:46)
--- NOTE | 2022-05-07 00:51 | EDPHYS ---
Physician Documentation [facility] Name: Guzman Mayers Age: 77 yrs Sex: Male : 1945 Arrival Date: 05/06/2022 Time: 15:04 Bed 6 Private MD: ED Physician Hero Lane HPI: 05/06 16:04 This 77 yrs old Male presents to ER via Wheelchair with complaints of Blood jmm Transfusion. 16:04 Is a 77-year-old male with history of end-stage renal disease, diabetes mellitus the jmm presents emerged department with request from nephrology for 2 units of blood to be given. Anemia was discovered on routine lab work. Patient denies any dark stools, abdominal pain, weakness, fever.. Historical: - Allergies: 16:07 Codeine; vg1 16:07 GABAPENTIN; vg1 - PMHx: 16:07 ADD/ADHD; CHF; CKD; COPD; Diabetes - IDDM; Dialysis; dialysis tues, thurs, sat, uses o2 vg1 when sleeping.; High Cholesterol; HTN; Hypertension; - Immunization history:: Client reports receiving the 2nd dose of the Covid vaccine. - Social history:: Smoking status: unknown. ROS: 16:04 Constitutional: Negative for fever, chills, and weight loss, Cardiovascular: Negative jmm for chest pain, palpitations, and edema, Respiratory: Negative for shortness of breath, cough, wheezing, and pleuritic chest pain. 16:04 All other systems are negative. Exam: 16:04 Constitutional: This is a well developed, well nourished patient who is awake, alert, jmm and in no acute distress. Head/Face: atraumatic. Eyes: EOMI, no conjunctival erythema appreciated ENT: Moist Mucus Membranes Neck: Trachea midline, Supple Chest/axilla: Normal chest wall appearance and motion. Cardiovascular: Regular rate and rhythm. No edema appreciated Respiratory: Normal respirations, no respiratory distress appreciated Abdomen/GI: Non distended Back: Normal ROM Skin: General appearance color normal 16:04 Musculoskeletal/extremity: ROM: 16:04 Skin: Appearance: Color: normal in color. 16:04 Neuro: Orientation: is normal, Mentation: is normal, Memory: is normal. 16:04 Psych: Behavior/mood is pleasant, cooperative. Vital Signs: 16:04 BP 104 / 45; Pulse 58; Resp 22; Temp 97.9; Pulse Ox 94% on R/A; Weight 73.94 kg; Height vg1 5 ft. 10 in. (177.80 cm); 16:40 BP 115 / 45; Pulse 58; Resp 16 S; Temp 98.0(O); Pulse Ox 100% on 2 lpm NC; Pain 4/10; kc6 17:40 BP 122 / 47; Pulse 57; Resp 16 S; Pulse Ox 100% on 2 lpm NC; kc6 19:00 BP 122 / 46; Pulse 58; Resp 16; Pulse Ox 100% ; ll3 20:00 BP 143 / 53; Pulse 59; Resp 16; Pulse Ox 100% ; ll3 21:00 BP 117 / 51; Pulse 58; Resp 17; Pulse Ox 99% ; ll3 21:54 BP 135 / 51; Pulse 59; Resp 17; Pulse Ox 100% ; ll3 23:20 BP 125 / 49; Pulse 58; Resp 17; Pulse Ox 100% ; ll3 12 02:22 BP 136 / 60; Pulse 58; Resp 17; Pulse Ox 100% ; ll3 03:00 BP 148 / 63; Pulse 58; Resp 17; Pulse Ox 100% ; ll3 12 16:04 Body Mass Index 23.39 (73.94 kg, 177.80 cm) vg1 MDM: 05/06 16:04 Patient medically screened. [facility] 05/07 00:51 Data reviewed: vital signs, nurses notes, lab test result(s), CBC, and as a result, I sb4 will discharge patient. ED course: Patient tolerated 2 unit PRBC transfusion well. He is stable for discharge.. 05/06 16:07 Order name: Type And Screen [facility] 05/06 16:08 Order name: CBC with Diff; Complete Time: 18:52 [facility] 05/06 17:33 Order name: Bb Add On bd 05/06 18:04 Order name: Packed RBC Leukored [facility] 05/06 16:07 Order name: Saline Lock; Complete Time: 16:34 [facility] 05/06 18:49 Order name: CBC Smear Scan; Complete Time: 18:52 EDMS Administered Medications: No medications were administered Disposition: 07:05 Co-signature as Attending Physician, Hero Lane MD. rn Disposition Summary: 05/07/22 00:51 Discharge Ordered Location: Home sb4 Problem: new sb4 Symptoms: have improved sb4 Condition: Stable sb4 Diagnosis - Anemia in chronic kidney disease sb4 Followup: sb4 - With: - When: 2 - 3 days - Reason: Recheck today's complaints, Continuance of care, Re-evaluation by your physician Discharge Instructions: - Discharge Summary Sheet sb4 - Blood Transfusion, Adult sb4 Forms: - Medication Reconciliation Form sb4 - Thank You Letter sb4 - Antibiotic Education sb4 - Prescription Opioid Use sb4 Signatures: Dispatcher [employer] Héctor Lipscomb PA PA jmm Nieto, Roman, MD MD rn Zully Wall RN RN Elisa Ramirez PA-C PA-C sb4
--- NOTE | 2022-05-07 00:51 | ER ---
Nurse's Notes [facility] Name: Guzman Mayers Age: 77 yrs Sex: Male : 1945 Arrival Date: 05/06/2022 Time: 15:04 Bed 6 Private MD: Diagnosis: Anemia in chronic kidney disease Presentation: 05/06 16:04 Chief complaint: Patient states: Hemoglobin of 6.5, Dr Hidalgo sent pt for 2 units vg1 of transfusion; denies CP or SOB, states h/a. Coronavirus screen: Vaccine status: Patient reports receiving the 2nd dose of the covid vaccine. Client denies travel out of the [place] in the last 14 days. Ebola Screen: Patient negative for fever greater than or equal to 101.5 degrees Fahrenheit, and additional compatible Ebola Virus Disease symptoms. Initial Sepsis Screen: Does the patient meet any 2 criteria? RR > 20 per min. Does the patient have a suspected source of infection? No. Patient's initial sepsis screen is negative. Risk Assessment: Do you want to hurt yourself or someone else? Patient reports no desire to harm self or others. Onset of symptoms was May 06, 2022. 16:04 Method Of Arrival: Wheelchair vg1 16:04 Acuity: CHICHO 3 vg1 Triage Assessment: 16:07 General: Appears in no apparent distress. uncomfortable, Behavior is cooperative. Pain: vg1 Denies pain. Cardiovascular: Denies chest pain, shortness of breath. Derm: Skin is pale. Historical: - Allergies: 16:07 Codeine; vg1 16:07 GABAPENTIN; vg1 - PMHx: 16:07 ADD/ADHD; CHF; CKD; COPD; Diabetes - IDDM; Dialysis; dialysis tues, thurs, sat, uses o2 vg1 when sleeping.; High Cholesterol; HTN; Hypertension; - Immunization history:: Client reports receiving the 2nd dose of the Covid vaccine. - Social history:: Smoking status: unknown. Screenin:34 Abuse screen: Denies threats or abuse. Denies injuries from another. Nutritional kc6 screening: No deficits noted. Tuberculosis screening: No symptoms or risk factors identified. Fall Risk None identified. Assessment: 16:34 General: Appears in no apparent distress. comfortable, Behavior is calm, cooperative, kc6 appropriate for age. Pain: Complains of pain in head and back of neck Pain does not radiate. Pain currently is 4 out of 10 on a pain scale. Quality of pain is described as sharp, Pain began gradually, Is continuous, Alleviated by rest, repositioning, Aggravated by weight bearing. Neuro: [place] Agitation-Sedation Scale (RASS): 0 - Alert and Calm Level of Consciousness is awake, alert, obeys commands, Oriented to person, place, time, situation, Appropriate for age. Cardiovascular: Heart tones S1 S2 present Capillary refill < 3 seconds Dialysis shunt: in the left arm, with palpable thrill, with auscultated bruit, with no erythema, with no edema, no bleeding noted. Respiratory: Reports shortness of breath fatigue Airway is patent Trachea midline Respiratory effort is even, unlabored, Respiratory pattern is regular, symmetrical, Breath sounds are clear bilaterally. GI: No signs and/or symptoms were reported involving the gastrointestinal system. : No signs and/or symptoms were reported regarding the genitourinary system. EENT: No signs and/or symptoms were reported regarding the EENT system. Derm: Skin is intact, Skin is dry, Skin is pink, Skin temperature is warm Wound noted coccyx Wound is covered with a gauze dressing. dressing is clean, dry, and intact without redness, swelling, or drainage. client stated he's had it for 10yrs as a results of sitting for ling periods of time during dialysis. Musculoskeletal: Circulation, motion, and sensation intact. Capillary refill < 3 seconds, Range of motion: intact in all extremities. 17:34 Reassessment: Patient appears in no apparent distress at this time. No changes from kc6 previously documented assessment. Patient and/or family updated on plan of care and expected duration. Pain level reassessed. Patient is alert, oriented x 3, equal unlabored respirations, skin warm/dry/pink. 21:57 Reassessment: No changes from previously documented assessment. Patient and/or family ll3 updated on plan of care and expected duration. Pain level reassessed. Patient is alert, oriented x 3, equal unlabored respirations, skin warm/dry/pink. 23:20 Reassessment: Patient and/or family updated on plan of care and expected duration. Pain ll3 level reassessed. Patient is alert, oriented x 3, equal unlabored respirations, skin warm/dry/pink. 05/07 02:22 Reassessment: Patient and/or family updated on plan of care and expected duration. Pain ll3 level reassessed. Patient is alert, oriented x 3, equal unlabored respirations, skin warm/dry/pink. Vital Signs: 05/06 16:04 BP 104 / 45; Pulse 58; Resp 22; Temp 97.9; Pulse Ox 94% on R/A; Weight 73.94 kg; Height vg1 5 ft. 10 in. (177.80 cm); 16:40 BP 115 / 45; Pulse 58; Resp 16 S; Temp 98.0(O); Pulse Ox 100% on 2 lpm NC; Pain 4/10; kc6 17:40 BP 122 / 47; Pulse 57; Resp 16 S; Pulse Ox 100% on 2 lpm NC; kc6 19:00 BP 122 / 46; Pulse 58; Resp 16; Pulse Ox 100% ; ll3 20:00 BP 143 / 53; Pulse 59; Resp 16; Pulse Ox 100% ; ll3 21:00 BP 117 / 51; Pulse 58; Resp 17; Pulse Ox 99% ; ll3 21:54 BP 135 / 51; Pulse 59; Resp 17; Pulse Ox 100% ; ll3 23:20 BP 125 / 49; Pulse 58; Resp 17; Pulse Ox 100% ; ll3 05/07 02:22 BP 136 / 60; Pulse 58; Resp 17; Pulse Ox 100% ; ll3 03:00 BP 148 / 63; Pulse 58; Resp 17; Pulse Ox 100% ; ll3 05/06 16:04 Body Mass Index 23.39 (73.94 kg, 177.80 cm) 1 ED Course: 05/06 15:04 Patient arrived in ED. rg4 15:46 Héctor Lopez PA is PHCP. jmm 15:[address] MD is Attending Physician. [facility] 16:07 Triage completed. vg1 16:07 Arm band placed on. vg1 16:13 Hollie Combs, GILSON is Primary Nurse. kc6 16:34 CBC with Diff Sent. kc6 16:34 Type And Screen Sent. kc6 16:34 Inserted saline lock: 20 gauge in right antecubital area, using aseptic technique. kc6 Blood collected. 20:04 PHCP role handed off by Héctor Lopez PA sb4 20:04 Elisa Bello [facility]-C [facility]. sb4 05/07 00:50 Anita Sanchez MD is Referral Physician. sb4 02:23 Patient has correct armband on for positive identification. Placed in gown. Bed in low ll3 position. Call light in reach. Side rails up X 1. 02:23 No provider procedures requiring assistance completed. ll3 03:37 IV discontinued, intact, bleeding controlled, No redness/swelling at site. Pressure ll3 dressing applied. Administered Medications: No medications were administered Medication: 02:23 VIS not applicable for this client. ll3 Outcome: 00:51 Discharge ordered by MD. sb4 03:37 Discharged to home via wheelchair, with family. ll3 03:37 Condition: stable 03:37 Discharge instructions given to patient, family, Instructed on discharge instructions, follow up and referral plans. Demonstrated understanding of instructions, follow-up care. 03:37 Patient left the ED. ll3 Signatures: Hcétor Lopez PA PA jmm Garcia, Rubi rg4 Zully Wall RN RN vg1 Hu Cortez RN RN ll3 Hollie Combs RN RN kc6 Elisa Bello PA-C PA-C sb4 Corrections: (The following items were deleted from the chart) 05/06 16:55 16:34 Derm: Skin is intact, Skin is dry, Skin is pink, Skin temperature is warm Wound kc6 noted coccyx kc6 05/07 00:05/06 21:54 BP 135 / 51; Pulse 59bpm; Resp 17bpm; Pulse Ox 100% RA; ll3 ll3 05/07 00:05/06 19:00 BP 122 / 46; Pulse 58bpm; Resp 16bpm; Pulse Ox 100% RA; ll3 ll3 05/07 00:05/06 20:00 BP 143 / 53; Pulse 59bpm; Resp 16bpm; Pulse Ox 100% RA; ll3 ll3 05/07 00:05/06 21:00 BP 117 / 51; Pulse 58bpm; Resp 17bpm; Pulse Ox 99% RA; ll3 ll3 05/07 00:05/06 23:20 BP 125 / 49; Pulse 58bpm; Resp 17bpm; Pulse Ox 100% RA; ll3 ll3
[2022-05-07 08:09] VITALS: TEMP 98.4
[2022-05-07 08:11] VITALS: BP 144/90
[2022-05-07 08:12] VITALS: O2SAT 96
== END 2022-05-07 03:37 | disposition home or self-care (01) ==
LOC: ER 14:59
PROC: 30233N1 Transfusion of Nonautologous Red Blood Cells into Peripheral Vein, Percutaneous Approach (ICD-10-PCS; principal; 2022-05-07)
DX: E11.22 Type 2 diabetes mellitus with diabetic chronic kidney disease (principal); I13.2 Hypertensive heart and chronic kidney disease with heart failure and with stage 5 chronic kidney disease, or end stage renal disease; N18.6 End stage renal disease; I50.9 Heart failure, unspecified; D63.1 Anemia in chronic kidney disease; Z99.2 Dependence on renal dialysis; Z88.5 Allergy status to narcotic agent; Z88.8 Allergy status to other drugs, medicaments and biological substances
CPT/HCPCS: 85025; 36415; 86900; 86850; 86901; 99283; 36430; J1200; P9016 ×2; J7050

== ENCOUNTER 2022-05-25 14:46 | Inpatient (IN) | payer OTHER, BC ==
--- OUTSIDE RECORDS SUMMARY | 2022-05-25 14:53 | XMS REPORT | Continuity of Care Document ---
:1945 Author Organization [facility] t Address [address] [place] [address] Care Team Providers Name Role Phone Naveed Fortune Attending Clinician Unavailable [id number] Attending Clinician Unavailable CAREY LONG Attending Clinician Unavailable CAMELIA MANCILLA Attending Clinician Unavailable RONNIE WHITNEY Attending Clinician Unavailable MONSE VELAZQUEZ Attending Clinician Unavailable CHILANGO ARMSTRONG NATASHA Attending Clinician Unavailable [id number] Admitting Clinician Unavailable CAMELIA MANCILLA Admitting Clinician Unavailable MONSE VELAZQUEZ Admitting Clinician Unavailable CHILANGO ARMSTRONG NATASHA Admitting Clinician Unavailable Payers Payer Name Policy Type Policy Number Effective Date Expiration Date S kristin MEDICARE PART A [id number] 2011 AND B 00:00:00 [employer] Blue 6 [id number] 2014 [facility] Shield [facility] [place] 00:00:00 - [facility] [id number] BCTX BCTI [id number] MEDICARE MB [id number] 2011 [facility] NOVITAS 00:00:00 - [facility] MEDICARE MB [id number] 2011 [facility] NOVITAS 00:00:00 - [facility] MEDICARE MB [id number] 2011 [facility] NOVITAS 00:00:00 - [facility] Problems Condition Condition Condition Status Onset Resolution Last Treating Co mments Source Name Details Category Date Date Treatment Clinician Date [id number] Other Problem Common obesity Spirit due to - [facility] excess [facility] [id number] Metabolic Problem Com mon syndrome [facility] - [facility] [id number] Body mass Problem Com mon index Spirit [BMI] - [facility] 30.0-30.9, [facility] [id number] Frailty Problem Commo n syndrome Spirit in - [facility] geriatric 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 [id number] Mixed Problem Common hyperlipid Spirit emia - [facility] [id number] Noncomplia Problem Co mmon nce of Spirit patient - [facility] with [facility] Chronic +5th digit Problem Comm on atrial eff Spirit fibrillati 02/28/19*Ch - CHI on ronic St (disorder) atrial 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 Chronic Chronic Problem Common obstructiv obstructiv Sp jerome e lung e - CHI disease pulmonary [facility] unspecifie Medica l d COPD Center type [id number] Heart Problem Common failure, Spirit congestive - [facility] , etiology [facility] [id number] Constipati Problem Com mon on, Spirit unspecifie - CHI d constipati [facility] Medical [place] [id number] Memory Problem Common impairment Spirit of gradual - [facility] onset [facility] [id number] HTN, goal Problem Comm on below Spirit 130/80 - [facility] [id number] Anemia of Problem Com mon chronic Spirit disease - [facility] 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 Hypertensi Hypertensi Problem C ommon ve heart [...] gabapent Active Unknown Commo n in in [facility] codeine codeine Active Unknown Common [facility] Social History Social Habit Start Date Stop Date Quantity Comments Source History of Tobacco Use Co mmon [facility] Sex Assigned At Com mon [facility] Smoking Status Start Date Stop Date Source Former Smoker 2022-02-18 00:00:00 2022-02-18 00:00:00 Common S pirit [facility] Medications Ordered Filled Start Stop Current Ordering Indication Dosage Frequency Signature Comments Components Source Medication Medication Date Date Medication? Clinician (SIG) Name Name Rishabh Keating No Lantus SoloStar SoloStar 01-01 SoloStar 100 [...] Lantus Lantus 2021-0 No Lantus SoloStar SoloStar 8-04 SoloStar 100 UNIT/ML 100 UNIT/ML 00:00: 100 00 UNIT/ML Lantus Lantus 2021-0 No Lantus SoloStar SoloStar 8-04 SoloStar 100 UNIT/ML 100 UNIT/ML 00:00: 100 00 UNIT/ML Lantus Lantus 2021-0 No Lantus SoloStar SoloStar 8-04 SoloStar 100 UNIT/ML 100 UNIT/ML 00:00: 100 00 UNIT/ML Advair HFA Advair HFA 0 Yes Navede 2 puffs Common 1-15 [facility] 00:00: - [facility] 00 [facility] 2018-05 Yes Naveed 1 needle Common Ultra-Fine Ultra-Fine 0-09 [facility] with Sp jerome Christina Pen Christina Pen 00:00: Basaglar - CHI Derry Derry 00 [facility] 2018-05 No QD BD Ultra-Fine Ultra-Fine 0-09 Ultra-Fine Christina Pen Christina Pen 00:00: Christina Pen Derry 4mm Derry 4mm 00 Derry x 32Gm x 32Gm 4mm x 32Gm BD 2018-05 No QD BD Ultra-Fine Ultra-Fine 0-09 Ultra-Fine Christina Pen Christina Pen 00:00: Christina Pen Derry 4mm Derry 4mm 00 Derry x 32Gm x 32Gm 4mm x 32Gm BD 2018-05 No QD BD Ultra-Fine Ultra-Fine 0-09 Ultra-Fine Christina Pen Christina Pen 00:00: Christina Pen Derry 4mm Derry 4mm 00 Derry x 32Gm x 32Gm 4mm x 32Gm BD BD 2018-05 No QD BD Ultra-Fine Ultra-Fine 0-09 Ultra-Fine Christina Pen Christina Pen 00:00: Christina Pen Derry 4mm Derry 4mm 00 Derry x 32Gm x 32Gm 4mm x 32Gm BD 2018-05 No QD BD Ultra-Fine Ultra-Fine 0-09 Ultra-Fine Christina Pen Christina Pen 00:00: Christina Pen Derry 4mm Derry 4mm 00 Derry x 32Gm x 32Gm 4mm x 32Gm BD 2018-05 No QD BD Ultra-Fine Ultra-Fine 0-09 Ultra-Fine Christina Pen Christina Pen 00:00: Christina Pen Derry 4mm Derry 4mm 00 Derry x 32Gm x 32Gm 4mm x 32Gm [facility] 2018- No QD BD Ultra-Fine Ultra-Fine 0-09 Ultra-Fine Christina Pen Christina Pen 00:00: Christina Pen Derry 4mm Derry 4mm 00 Derry x 32Gm x 32Gm 4mm x 32Gm [facility] 2018- No QD BD Ultra-Fine Ultra-Fine 0-09 Ultra-Fine Christina Pen Christina Pen 00:00: Christina Pen Derry 4mm Derry 4mm 00 Derry x 32Gm x 32Gm 4mm x 32Gm [facility] 2018- No QD BD Ultra-Fine Ultra-Fine 0-09 Ultra-Fine Christina Pen Christina Pen 00:00: Christina Pen Derry 4mm Derry 4mm 00 Derry x 32Gm x 32Gm 4mm x 32Gm [facility] 2018- No QD BD Ultra-Fine Ultra-Fine 0-09 Ultra-Fine Christina Pen Christina Pen 00:00: Christina Pen Derry 4mm Derry 4mm 00 Derry x 32Gm x 32Gm 4mm x 32Gm [facility] 2018- No QD BD Ultra-Fine Ultra-Fine 0-09 Ultra-Fine Christina Pen Christina Pen 00:00: Christina Pen Derry 4mm Derry 4mm 00 Derry x 32Gm x 32Gm 4mm x 32Gm [facility] 2018-05 No QD BD Ultra-Fine Ultra-Fine 0-09 Ultra-Fine Christina Pen Christina Pen 00:00: Christina Pen Derry 4mm Derry 4mm 00 Derry x 32Gm x 32Gm 4mm x 32Gm [facility] 2018- No QD BD Ultra-Fine Ultra-Fine 0-09 Ultra-Fine Christina Pen Christina Pen 00:00: Christina Pen Derry 4mm Derry 4mm 00 Derry x 32Gm x 32Gm 4mm x 32Gm [facility] 2018-05 No QD BD Ultra-Fine Ultra-Fine 0-09 Ultra-Fine Christina Pen Christina Pen 00:00: Christina Pen Derry 4mm Derry 4mm 00 Derry x 32Gm x 32Gm 4mm x 32Gm [facility] 2018- No QD BD Ultra-Fine Ultra-Fine 0-09 Ultra-Fine Christina Pen Christina Pen 00:00: Christina Pen Derry 4mm Derry 4mm 00 Derry x 32Gm x 32Gm 4mm x 32Gm [facility] 2018- No QD BD Ultra-Fine Ultra-Fine 0-09 Ultra-Fine Christina Pen Christina Pen 00:00: Christina Pen Derry 4mm Derry 4mm 00 Derry x 32Gm x 32Gm 4mm x 32Gm BD 2018-05 No QD BD Ultra-Fine Ultra-Fine 0-09 Ultra-Fine Christina Pen Christina Pen 00:00: Christina Pen Derry 4mm Derry 4mm 00 Derry x 32Gm x 32Gm 4mm x 32Gm BD 2018-05 No QD BD Ultra-Fine Ultra-Fine 0-09 Ultra-Fine Christina Pen Christina Pen 00:00: Christina Pen Derry 4mm Derry 4mm 00 Derry x 32Gm x 32Gm 4mm x 32Gm BD 2018-05 No QD BD Ultra-Fine Ultra-Fine 0-09 Ultra-Fine Christina Pen Christina Pen 00:00: Christina Pen Derry 4mm Derry 4mm 00 Derry x 32Gm x 32Gm 4mm x 32Gm Tums E-X Tums E-X Yes Naveed 1 tablet C ommon 750 750 Fortune [facility] Basaglar Basaglar Yes Naveed 52 Units C ommon KwikPen KwikPen Fortune [facility] PreserVisio PreserVisio Yes Naveed as Common n AREDS n AREDS [facility] directed [facility] Citalopram Citalopram Yes Naveed 1 tablet Common Hydrobromid Hydrobromid Fortune [facility] e e [facility] Stool Stool Yes Naveed not Common Softener Softener [facility] defined [facility] rit [facility] Gentle Gentle Yes Naveed 1 tablet Commo n Laxative Laxative Fortune as needed S pirit [facility] Atorvastati Atorvastati Yes Naveed 1 tablet Common n Calcium n Calcium Fortune [facility] Contour Contour Yes Naveed USE 3 Common Test Test Fortune TIMES A [facility] DAY [facility] Eliquis 2.5 Eliquis 2.5 Yes Naveed 1 tablet Common mg mg Fortune [facility] Multivitami Multivitami Yes Naveed as Common n Adult n Adult Fortune directed [facility] Carvedilol Carvedilol Yes Naveed TAKE 1 Common [facility] TABLET BY [facility] MOUTH - CHI TWICE A St DAY ON NON [facility] DIALYSIS Medical DAYS Center Atorvastati Atorvastati Yes Naveed TAKE 1 Common n Calcium n Calcium Fortune TABLET BY Spirit MOUTH - [facility] EVERY DAY [facility] GlipiZIDE GlipiZIDE Yes Naveed 1 tablet Common [facility] - [facility] Basaglar Basaglar Yes Naveed 50 Units C ommon KwikPen KwikPen [facility] - [facility] Advair HFA Advair HFA No 2{puffs BID [...] Dexcom G6 Dexcom G6 No Dexcom G6 Mine Safety Manager - Mine Safety Manager - Mine Safety Manager - Carvedilol Carvedilol No Carvedilol 12.5 MG [...] Dexcom G6 Dexcom G6 No Dexcom G6 Mine Safety Manager - Mine Safety Manager - Mine Safety Manager - glipiZIDE 5 glipiZIDE 5 No 1{table [...] Dexcom G6 Dexcom G6 No Dexcom G6 Mine Safety Manager - Mine Safety Manager - Mine Safety Manager - Ipratropium Ipratropium No Ipratropiu -Albuterol -Albuterol [...] Dexcom G6 Dexcom G6 No Dexcom G6 Mine Safety Manager - Mine Safety Manager - Mine Safety Manager - Gentle Gentle No 1{table QD Gentle [...] HFA No 2{puffs BID Advair HFA 230 230- } 230-21 MCG/ACT MCG/ACT MCG/ACT Atorvastati Atorvastati [...] Dexcom G6 Dexcom G6 No Dexcom G6 Mine Safety Manager - Mine Safety Manager - Mine Safety Manager - PreserVisio PreserVisio No PreserVisi n AREDS [...] Dexcom G6 Dexcom G6 No Dexcom G6 Mine Safety Manager - Mine Safety Manager - Mine Safety Manager - Advair HFA Advair HFA No 2{puffs [...] Dexcom G6 Dexcom G6 No Dexcom G6 Mine Safety Manager - Mine Safety Manager - Mine Safety Manager - Advair HFA Advair HFA No 2{puffs [...] Dexcom G6 Dexcom G6 No Dexcom G6 Mine Safety Manager - Mine Safety Manager - Mine Safety Manager - Advair HFA Advair HFA No 2{puffs [...] 32G X 4 U/F 32G X 4 Hcristina U/F MM MM 32G X 4 MM [...] Dexcom G6 Dexcom G6 No Dexcom G6 Mine Safety Manager - Mine Safety Manager - Mine Safety Manager - Atorvastati Atorvastati No 1{table QD Atorvastat [...] Dexcom G6 Dexcom G6 No Dexcom G6 Mine Safety Manager - Mine Safety Manager - Mine Safety Manager - Atorvastati Atorvastati No Atorvastat n Calcium [...] Dexcom G6 Dexcom G6 No Dexcom G6 Mine Safety Manager - Mine Safety Manager - Mine Safety Manager - Atorvastati Atorvastati No Atorvastat n Calcium [...] FluAD 2021-03-30 Completed [facility] 13:13:00 - [facility] FluAD FluAD 2021-03-30 Completed [facility] 13:13:00 - [facility] FluAD FluAD 2021-03-30 Completed [facility] 13:13:00 - [facility] FluAD FluAD 2021-03-30 Completed [facility] 13:13:00 - [facility] FluAD FluAD 2021-03-30 Completed [facility] 13:13:00 - [facility] FluAD FluAD 2021-03-30 Completed [facility] 13:13:00 - [facility] FluAD FluAD 2021-03-30 Completed [facility] 13:13:00 - [facility] FluAD FluAD 2021-03-30 Completed [facility] 13:13:00 - [facility] FluAD FluAD 2021-03-30 Completed [facility] 13:13:00 - [facility] FluAD FluAD 2021-03-30 Completed [facility] 13:13:00 - [facility] FluAD FluAD 2021-03-30 Completed [facility] 13:13:00 - [facility] FluAD FluAD 2021-03-30 Completed [facility] 13:13:00 - [facility] FluAD FluAD 2021-03-30 Completed [facility] 13:13:00 - [facility] FluAD FluAD 2021-03-30 Completed [facility] 13:13:00 - [facility] FluAD FluAD 2021-03-30 Completed [facility] 13:13:00 - [facility] FluAD FluAD 2021-03-30 Completed [facility] 13:13:00 - [facility] FluAD FluAD 2021-03-30 Completed [facility] 13:13:00 - [facility] COVID-19 Vaccine COVID-19 Vaccine 2020-08-19 Completed Co mmon [facility] (Andrea) (Andrea) 09:17:00 [facility] COVID-19 Vaccine COVID-19 Vaccine 2020-08-19 Completed Co mmon [facility] (Andrea) (Andrea) 09:17:00 [facility] COVID-19 Vaccine COVID-19 Vaccine 2020-08-19 Completed Co mmon [facility] (Andrea) (Andrea) 09:17:00 [facility] COVID-19 Vaccine COVID-19 Vaccine 2020-08-19 Completed Co mmon [facility] (Andrea) (Andrea) 09:17:00 [facility] COVID-19 Vaccine COVID-19 Vaccine 2020-08-19 Completed Co mmon [facility] (Andrea) (Andrea) 09:17:00 [facility] COVID-19 Vaccine COVID-19 Vaccine 2020-08-19 Completed Co mmon [facility] (Andrea) (Andrea) 09:17:00 [facility] COVID-19 Vaccine COVID-19 Vaccine 2020-08-19 Completed Co mmon [facility] (Andrea) (Andrea) 09:17:00 [facility] COVID-19 Vaccine COVID-19 Vaccine 2020-08-19 Completed Co mmon [facility] (Andrea) (Andrea) 09:17:00 [facility] COVID-19 Vaccine COVID-19 Vaccine 2020-08-19 Completed Co mmon [facility] (Andrea) (Andrea) 09:17:00 [facility] COVID-19 Vaccine COVID-19 Vaccine 2020-08-19 Completed Co mmon [facility] (Andrea) (Andrea) 09:17:00 [facility] COVID-19 Vaccine COVID-19 Vaccine 2020-08-19 Completed Co mmon [facility] (Andrea) (Andrea) 09:17:00 [facility] COVID-19 Vaccine COVID-19 Vaccine 2020-08-19 Completed Co mmon [facility] (Andrea) (Andrea) 09:17:00 [facility] COVID-19 Vaccine COVID-19 Vaccine 2020-08-19 Completed Co mmon [facility] (Andrea) (Andrea) 09:17:00 [facility] COVID-19 Vaccine COVID-19 Vaccine 2020-08-19 Completed Co mmon [facility] (Andrea) (Andrea) 09:17:00 [facility] COVID-19 Vaccine COVID-19 Vaccine 2020-08-19 Completed Co mmon [facility] (Andrea) (Andrea) 09:17:00 [facility] COVID-19 Vaccine COVID-19 Vaccine 2020-08-19 Completed Co mmon [facility] (Andrea) (Andrea) 09:17:00 [facility] COVID-19 Vaccine COVID-19 Vaccine 2020-08-19 Completed Co mmon [facility] (Andrea) (Andrea) 09:17:00 [facility] COVID-19 Vaccine COVID-19 Vaccine 2020-08-19 Completed Co mmon [facility] (Andrea) (Andrea) 09:17:00 [facility] COVID-19 Vaccine COVID-19 Vaccine 2020-08-19 Completed Co mmon [facility] (Andrea) (Andrea) 09:17:00 [facility] Vital Signs Vital Name Observation Time Observation Value Comments Source height 2022-02-17 15:00:00 70 [in_i] [facility] weight 2022-02-17 15:00:00 208 [lb_av] [facility] temperature 2022-02-17 15:00:00 98.1 [degF] [facility] bmi 2022-02-17 15:00:00 29.84 kg/m2 [facility] blood pressure 2022-02-17 15:00:00 121 mm[Hg] [facility] - systolic [facility] blood pressure 2022-02-17 15:00:00 61 mm[Hg] [facility] - diastolic [facility] height 2022-01-06 14:30:00 70 [in_i] Common S pirit - [facility] weight 2022-01-06 14:30:00 208 [lb_av] Common S pirit - [facility] bmi 2022-01-06 14:30:00 29.84 kg/m2 Common S pirit - [facility] blood pressure 2022-01-06 14:30:00 137 mm[Hg] [facility] - systolic [facility] blood pressure 2022-01-06 14:30:00 79 mm[Hg] [facility] - diastolic [facility] height 2021-11-03 09:45:00 70 [in_i] Common S pirit - [facility] weight 2021-11-03 09:45:00 210 [lb_av] Common S pirit - [facility] bmi 2021-11-03 09:45:00 30.13 kg/m2 Common S pirit - [facility] blood pressure 2021-11-03 09:45:00 144 mm[Hg] [facility] - systolic [facility] blood pressure 2021-11-03 09:45:00 86 mm[Hg] [facility] - diastolic [facility] height 2021-07-28 14:10:00 70 [in_i] Common S pirit - [facility] weight 2021-07-28 14:10:00 211.8 [lb_av] [facility] - [facility] temperature 2021-07-28 14:10:00 97.5 [degF] Common S pirit [facility] bmi 2021-07-28 14:10:00 30.39 kg/m2 [facility] S pirit [facility] oximetry 2021-07-28 14:10:00 93 % [facility] S pirit [facility] respiratory rate 2021-07-28 14:10:00 16 /min Comm on [facility] blood pressure 2021-07-28 14:10:00 134 mm[Hg] Common [facility] - systolic [facility] blood pressure 2021-07-28 14:10:00 63 mm[Hg] Common [facility] - diastolic [facility] height 2021-07-28 13:20:00 70 [in_i] Common S pirit [facility] weight 2021-07-28 13:20:00 211.8 [lb_av] Common [facility] temperature 2021-07-28 13:20:00 97.5 [degF] Common S pirit [facility] bmi 2021-07-28 13:20:00 30.39 kg/m2 [facility] S [facility] oximetry 2021-07-28 13:20:00 93 % Common [facility] respiratory rate 2021-07-28 13:20:00 16 /min Comm on [facility] blood pressure 2021-07-28 13:20:00 134 mm[Hg] Common [facility] - systolic [facility] blood pressure 2021-07-28 13:20:00 62 mm[Hg] Common [facility] - diastolic [facility] height 2021-04-28 13:10:00 70 [in_i] Common [facility] weight 2021-04-28 13:10:00 215.9 [lb_av] Common [facility] temperature 2021-04-28 13:10:00 97.3 [degF] Common S pirit [facility] bmi 2021-04-28 13:10:00 30.98 kg/m2 Common S [facility] oximetry 2021-04-28 13:10:00 95 % Common S [facility] respiratory rate 2021-04-28 13:10:00 17 /min Comm on [facility] blood pressure 2021-04-28 13:10:00 121 mm[Hg] Common [facility] - systolic [facility] blood pressure 2021-04-28 13:10:00 60 mm[Hg] Common [facility] - diastolic [facility] height 2021-03-12 09:30:00 70 [in_i] [facility] pirit [facility] weight 2021-03-12 09:30:00 211.4 [lb_av] [facility] temperature 2021-03-12 09:30:00 97.7 [degF] Common S pirit - [facility] bmi 2021-03-12 09:30:00 30.33 kg/m2 [facility] S pirit [facility] oximetry 2021-03-12 09:30:00 95 % [facility] respiratory rate 2021-03-12 09:30:00 16 /min Comm on [facility] blood pressure 2021-03-12 09:30:00 132 mm[Hg] Common [facility] - systolic [facility] blood pressure 2021-03-12 09:30:00 67 mm[Hg] [facility] diastolic [facility] Procedures Procedure Date / Time Performed Performing Clinician Lupe bowie [id number] 2021-10-18 00:00:00 [facility] Encounters Start End Encounter Admission Attending Care Care Encounter Source Date/Time Date/Time Type Type Clinicians Facility Department ID 2022-05-20 Out[facility], STLMLC STLMLC [id number] Common 08:24:01 [facility] 2022-05-15 Outpatient [facility], STLMLC STLMLC [id number] Common 08:53:00 Naveed [facility] 2022-05-11 Outpatient [facility], STLMLC STLMLC [id number] Common 14:49:00 Naveed [id number] [facility] 2022-05-08 Outpatient [facility], STLMLC STLMLC [id number] Common 10:15:01 Naveed [facility] 2022-05-07 Outpatient [facility], STLMLC STLMLC [id number] Common 11:53:00 [place] [id number] [facility] 2022-02-18 Outpatient [facility], STLMLC STLMLC [id number] Common 12:05:01 Naveed [facility] 2022-01-01 Outpatient [facility], STLMLC STLMLC [id number] Common 10:24:01 Naveed [facility] 2021-12-29 Outpatient [facility], STLMLC STLMLC [id number] Common 08:34:00 Naveed [facility] 2021-12-16 Outpatient [facility] [id number] 14:42:21 [id number] [facility] 2021-11-19 Outpatient [facility], STLMLC STLMLC [id number] Common 08:42:01 Naveed [facility] 2021-11-03 Outpatient [facility], STLMLC STLMLC [id number] Common 10:33:01 Naveed [facility] 2021-10-15 Outpatient 3 [id number] [facility] RE[facility] [id number] [facility] 08:19:25 [facility] [place] [facility] 2021-10-14 Outpatient 3 [id number] [facility] REF [id number] [facility] 11:59:03 [facility] [place] [facility] 2021-06-25 Outpatient [facility], STLMLC STLMLC [id number] Common 14:22:06 Naveed [id number] [facility] 2021-06-25 Outpatient [facility], STLMLC STLMLC [id number] Common 14:13:51 Naveed [id number] [facility] 2021-06-25 Outpatient [facility], STLMLC STLMLC [id number] Common 13:38:12 Naveed [id number] [facility] 2021-06-25 Outpatient [facility], STLMLC STLMLC [id number] Common 12:43:29 Naveed [id number] [facility] 2021-06-25 Outpatient [facility], STLMLC STLMLC [id number] Common 12:42:27 Naveed [id number] [facility] 2021-06-25 Outpatient [facility], STLMLC STLMLC [id number] Common 12:31:12 Naveed [id number] [facility] 2021-06-25 Outpatient [facility], STLMLC STLMLC [id number] Common 12:31:03 Naveed [id number] [facility] 2021-06-25 Outpatient [facility], STLMLC STLMLC [id number] Common 12:30:21 Naveed [id number] [facility] 2021-06-25 Outpatient [facility], STLMLC STLMLC [id number] Common 11:00:43 Naveed [id number] [facility] 2022-04-03 2022-04-03 (TEL) STLMLC STLMLC [id number] Co mmon 00:00:00 00:00:00 [facility] 2022-02-17 2022-02-17 (TEL) STLMLC STLMLC [id number] Co mmon 00:00:00 00:00:00 [facility] 2022-02-17 2022-02-17 OFFICE STLMLC STLC [id number] Co mmon 00:00:00 00:00:00 VISIT [facility] PT - [facility] LEVEL 4 [facility] 2022-01-06 2022-01-06 OFFICE STLMLC STLMLC [id number] Co mmon 00:00:00 00:00:00 VISIT [facility] [place] - [place] 4 [facility] [place]22-01-02 2022-01-02 Emergency E LONG, MHBL MHBL [id number] MHBL 12:12:00 16:33:00 CAREY 2022-01-01 2022-01-01 (TEL) STLMLC STLMLC [id number] Co mmon 00:00:00 00:00:00 [facility] 2021-12-31 2021-12-31 (TEL) STLMLC STLMLC [id number] Co mmon 00:00:00 00:00:00 [facility] 2021-12-14 2021-12-16 Inpatient E LAURENT, JANE MED [id number] MHBL 18:26:00 22:14:00 CAMELIA 2021-12-03 2021-12-04 Emergency E DEVONTE, MHBL MHBL [id number] MHBL 18:19:00 09:53:00 RONNIE 2021-12-01 2021-12-01 Outpatient COH COH PIJFJKR ZIB COH 00:00:00 00:00:00 D-[id number] 2021-11-26 Outpatient E CAROLINEJANE MED [id number] MHBL 10:37:00 19:12:00 MONSE 2021-11-24 2021-11-24 (TEL) STLMLC STLMLC [id number] Co mmon 00:00:00 00:00:00 [facility] 2021-10-16 2021-11-03 Inpatient 3 NATHANIEL, ENCPL GILDA [id number] Encompa 23:26:00 21:40:00 [facility] [place] [facility] 2021-11-03 2021-11-03 OFFICE STLMLC STLMLC [id number] Co mmon 00:00:00 00:00:00 VISIT [facility] it [place] LEVEL 4 [place] [facility] [place] 2021-10-17 2021-10-17 (TEL) STLMLC STLMLC [id number] Co mmon 00:00:00 00:00:00 [facility] 2021-08-12 2021-08-12 (TEL) STLMLC STLMLC [id number] Co mmon 00:00:00 00:00:00 [facility] 2021-07-28 2021-07-28 OFFICE STLMLC STLMLC [id number] Co mmon 00:00:00 00:00:00 [facility]IT [facility] - [place] [facility] [place] 2021-07-28 2021-07-28 SUB ANNUAL STLMLC STLMLC [id number] Common 00:00:00 00:00:00 MCR [facility] WELLNESS - [place] [facility] [place] 2021-06-12 2021-06-12 (TEL) STLMLC STLMLC [id number] Co mmon 00:00:00 00:00:00 [facility] 2021-05-21 2021-05-21 (TEL) STLMLC STLMLC [id number] Co mmon 00:00:00 00:00:00 [facility] 2021-04-28 2021-04-28 OFFICE STLMLC STLMLC [id number] Co mmon 00:00:00 00:00:00 VISIT [facility] PT - [place] 4 [facility] [place] 2021-03-26 2021-03-26 (TEL) STLMLC STLMLC [id number] Co mmon 00:00:00 00:00:00 [facility] 2021-03-12 2021-03-12 OFFICE STLMLC STLMLC [id number] Co mmon 00:00:00 00:00:00 VISIT [facility] PT - [place] 4 [facility] [place] 2021-02-10 2021-02-10 Outpatient STLMLC STLMLC [id number] Common 00:00:00 00:00:00 [facility] 2021-01-31 2021-01-31 Outpatient STLMLC STLMLC [id number] Common 00:00:00 00:00:00 [facility] 2021-01-13 2021-01-13 Outpatient STLMLC STLMLC [id number] Common 00:00:00 00:00:00 [facility] 2021-01-08 2021-01-08 Outpatient STLMLC STLMLC [id number] Common 00:00:00 00:00:00 [facility] 2020-12-31 2020-12-31 Outpatient STLMLC STLMLC [id number] Common 00:00:00 00:00:00 [facility] 2020-12-11 2020-12-11 Outpatient STLMLC STLMLC [id number] Common 00:00:00 00:00:00 [facility] 2020-08-19 2020-08-19 Outpatient STLMLC STLMLC [id number] Common 00:00:00 00:00:00 [facility] 2020-07-19 2020-07-19 Outpatient STLMLC STLMLC [id number] Common 00:00:00 00:00:00 [facility] 2020-07-15 2020-07-15 Outpatient STLMLC STLMLC [id number] Common 00:00:00 00:00:00 [facility] 2020-06-14 2020-06-14 Outpatient STLMLC STLMLC [id number] Common 00:00:00 00:00:00 [facility] 2020-06-05 2020-06-05 Outpatient STLMLC STLMLC [id number] Common 00:00:00 00:00:00 [facility] 2020-04-23 2020-04-23 Outpatient STLMLC STLMLC [id number] Common 00:00:00 00:00:00 [facility] 2020-04-22 2020-04-22 Outpatient STLMLC STLMLC [id number] Common 00:00:00 00:00:00 [facility] 2020-04-17 2020-04-17 Outpatient STLMLC STLMLC [id number] Common 00:00:00 00:00:00 [facility] 2020-01-15 2020-01-15 [id number] Common 10:45:00 10:45:[address] [facility] 2019-10-16 2019-10-16 [facility] [id number] Common 13:00:00 13:00:[address] [facility] 2019-07-17 2019-07-17 [facility] [id number] Common 13:45:00 13:45:[address] [facility] 2019-06-14 2019-06-14 [facility] [id number] Common 11:45:00 11:45:[address] [facility] 2019-06-07 2019-06-07 [facility] [id number] Common 11:57:00 11:57:[address] [facility] 2019-05-17 2019-05-17 [facility] [id number] Common 11:30:00 11:30:[address] [facility] 2019-04-24 2019-04-24 [facility] [id number] Common 14:52:00 14:52:[address] [facility] 2019-04-19 2019-04-19 [facility] [id number] Common 14:45:00 14:45:[address] [facility] 2019-04-06 2019-04-06 [facility] [id number] Common 08:35:00 08:35:[address] [facility] 2019-04-04 2019-04-04 [facility] [id number] Common 08:34:00 08:34:[address] [facility] 2019-03-08 2019-03-08 [facility] [id number] Common 10:57:00 10:57:[address] [facility] 2019-02-20 2019-02-20 [facility] [id number] Common 14:00:00 14:00:[address] [facility] Results Test Description Test Time Test Comments Results Result Comments Source HEMOGLOBIN A1C 2021-07-28 00:00:00 Test Item Value Reference Range Interpretation Comme nts A1C (test code = 4548-4) 8.8 HEMOGLOBIN [id number] 00:00:00 Test Item Value Reference Range Interpretation Comments A1C (test code = 4548-4) 8.3 HEMOGLOBIN [id number] 00:00:00 Test Item Value Reference Range Interpretation Comments A1C (test code = 4548-4) 10.3
--- NOTE | 2022-05-25 16:20 | RAD REPORT ---
EXAM DESCRIPTION: CT - Head Brain Wo Cont - 05/25/2022 4:01 pm CLINICAL HISTORY: fall COMPARISON: Head Brain Wo Cont dated 05/19/2018; Head Brain Wo Cont dated 11/11/2017 TECHNIQUE: All CT scans are performed using dose optimization technique as appropriate and may inclu de automated exposure control or mA/KV adjustment according to patient size. FINDINGS: No intracranial hemorrhage, hydrocephalus or extra-axial fluid collection.No areas of brai n edema or evidence of midline shift. Mild cerebral atrophy and chronic small vessel ischemic changes . The paranasal sinuses and mastoids are clear. The calvarium is intact. IMPRESSION: No acute intracranial abnormality.
--- NOTE | 2022-05-25 16:32 | RAD REPORT ---
EXAM DESCRIPTION: CT - Thorax Wo Con - 05/25/2022 4:04 pm CLINICAL HISTORY: right rib pain COMPARISON: Thorax Wo Con dated 01/21/2022; Thorax Wo Con dated 01/09/2022; Thorax Wo Con dated 2017; Thorax Wo Con dated 04/08/2016 FINDINGS: Chest Wall: No suspicious thyroid nodules or pathologic lymphadenopathy. Lungs: Atelectasis the resolving effusion. Dense right upper lobe consolidation is again identified. There has been some volume loss compared with prior. This likely reflects chronic scarring. . Pleura: Moderate right pleural effusion which is partially loculated. Mediastinum/yong: No pathologic lymphadenopathy. Moderate hiatal hernia. Pulmonary arteries/Aorta: Limited evaluation without contrast. No aortic aneurysm. Heart: No significant pericardial effusion. Normal heart size. Cardiomegaly. Multi-vessel coronary ar zoya disease. Upper abdomen: Low-density splenic lesion is statistically benign. Bones: No acute abnormality. Healing right anterior third, fourth, fifth rib fractures. All CT scans are performed using dose optimization technique as appropriate and may include automated exposure control or mA/KV adjustment according to patient size. IMPRESSION: Moderate right pleural effusion has decreased from prior. Increased volume loss at the s ite of consolidation in the right upper lobe suggesting the sequela of an infectious or inflammatory process. Healing right-sided rib fractures are new since 01/21/2022.
--- NOTE | 2022-05-25 16:41 | RAD REPORT ---
EXAM DESCRIPTION: RAD - Knee Right 3 View - 05/25/2022 4:30 pm CLINICAL HISTORY: PAIN COMPARISON: Knee Left 3 View dated 05/25/2022 FINDINGS/IMPRESSION: No acute fracture. No malalignment. Patellofemoral compartment and medial edwige rtment degenerative changes. Peripheral vascular calcifications.
--- NOTE | 2022-05-25 16:42 | RAD REPORT ---
EXAM DESCRIPTION: RAD - Knee Left 3 View - 05/25/2022 4:30 pm CLINICAL HISTORY: PAIN COMPARISON: No comparisons FINDINGS/IMPRESSION: No acute fracture. No malalignment. Patellofemoral compartment and medial edwige rtment degenerative changes. Small radiopaque foreign body within the soft tissues at the ventral asp ect of the distal femur. Peripheral vascular calcifications.
[2022-05-25 18:20] LABS: Absolute Lymphocytes (CBC) 0.9 K/uL (0.7-4.9); Hematocrit 17.3 % (39.6-49.0); Lymphocytes % 10.5 % (15.3-44.8); MCV 104.8 fL (80-100); MPV 6.2 fL (7.6-11.3); RBC Red Blood Cell Count 1.65 M/uL (4.33-5.43)
[2022-05-25 18:33] LABS: Protime INR 1.45
[2022-05-25 18:49] LABS: Potassium 4.5 mmol/L (3.5-5.1)
[2022-05-25 20:27] LABS: SARS-CoV-2 Antigen Rapid Res Negative (Negative)
[2022-05-25] MEDS ORDERED: NA CHLORIDE 0.9% 100 ML IV ONE (21:41)
[2022-05-26 00:41] LABS: Lymphocytes % 13.5 % (15.3-44.8); MCV 102.6 fL (80-100); MPV 6.5 fL (7.6-11.3); RBC Red Blood Cell Count 1.75 M/uL (4.33-5.43)
[2022-05-26 00:44] LABS: Hematocrit 17.9 % (39.6-49.0)
[2022-05-26 00:54] LABS: Potassium 4.6 mmol/L (3.5-5.1)
[2022-05-26 01:13] LABS: Anisocytosis 3+; Blood Morphology Comment NOTED (NOT SEEN); Burr Cells 3+; Platelet Estimate ADEQ; White Blood Cell Scan OK (OK)
--- NOTE | 2022-05-26 01:20 | EDPHYS ---
Physician Documentation [facility] Name: Guzman Mayers Age: 77 yrs Sex: Male : 1945 Arrival Date: 05/25/2022 Time: 14:48 Bed 6 Private MD: Tong [facility] ED Physician [address] HPI: 05/25 18:36 This 77 yrs old Male presents to ER via Wheelchair with complaints of Fall kb Injury. 18:36 Details of fall: The patient fell from an upright position, while walking. Onset: The kb symptoms/episode began/occurred yesterday. Associated injuries: The patient sustained injury to the chest, specifically the right lateral anterior chest and right lateral posterior chest, pain with breathing, pain with movement, tenderness, right knee and left knee, painful injury. Severity of symptoms: At their worst the symptoms were moderate, in the emergency department the symptoms are unchanged. The patient has not experienced similar symptoms in the past. The patient has not recently seen a physician. Pt reports he got up during the night, went to the restroom and fell on the way back to bed. States he braced himself on his wheelchair and it moved causing him to fall. States he did hit his head, but did not pass out. Reports pain to bilateral knees and right lateral lower ribs. Historical: - Allergies: 15:26 Codeine; ld1 15:26 GABAPENTIN; ld1 - PMHx: 15:26 ADD/ADHD; CHF; Hypertension; Diabetes - IDDM; HTN; dialysis tues, thurs, sat, uses o2 ld1 when sleeping.; CKD; COPD; Dialysis; High Cholesterol; - Immunization history: Last tetanus immunization: unknown. - Social history:: Smoking status: Patient denies any tobacco usage or history of. Patient/guardian denies using alcohol. ROS: 18:30 Constitutional: Negative for fever, chills, and weight loss. kb 18:30 Cardiovascular: Positive for chest pain, with movement, of the right lateral anterior chest and right lateral posterior chest. 18:30 MS/extremity: Positive for pain, of the right knee and left knee. 18:30 All other systems are negative. Exam: 18:35 Constitutional: This is a well developed, well nourished patient who is awake, alert, kb and in no acute distress. Head/Face: Normocephalic, atraumatic. ENT: Moist Mucous membranes Cardiovascular: Regular rate and rhythm with a normal S1 and S2. No gallops, murmurs, or rubs. No pulse deficits. Respiratory: Respirations even and unlabored. No increased work of breathing. Talking in full sentences Abdomen/GI: Soft, non-tender. No distention Skin: Warm, dry with normal turgor. Normal color. Neuro: Awake and alert, GCS 15, oriented to person, place, time, and situation. Moves all extremities. Normal gait. Psych: Awake, alert, with orientation to person, place and time. Behavior, mood, and affect are within normal limits. 18:35 Chest/axilla: Inspection: normal, Palpation: tenderness, that is moderate, of the right lateral anterior chest and right lateral posterior chest, that totally reproduces the patient's complaints. 18:35 Musculoskeletal/extremity: Extremities: grossly normal except: noted in the right knee and left knee: pain, ROM: no acute changes, Circulation is intact in all extremities. Sensation intact. Weight bearing: can bear weight with assistance only. Vital Signs: 15:21 BP 109 / 61; Pulse 84; Resp 18; Temp 97.0(O); Pulse Ox 95% on R/A; Weight 73.94 kg; ld1 Height 5 ft. 10 in. (177.80 cm); Pain 5/10; 20:45 BP 107 / 42; Pulse 59; Resp 16; Pulse Ox 98% on R/A; jb4 21:30 BP 111 / 46; Pulse 59; Resp 17; Pulse Ox 96% on 2 lpm NC; jb4 22:00 BP 111 / 48; Pulse 60; Resp 17; Pulse Ox 100% ; pf1 23:00 BP 121 / 52; Pulse 59; Resp 18; Temp 98.9(O); Pulse Ox 100% on 2 lpm NC; pf1 05/26 00:18 BP 106 / 50; Pulse 60; Resp 21; Temp 99.0(O); Pulse Ox 100% on 2 lpm NC; jb4 01:00 BP 126 / 56; Pulse 60; Resp 18; Pulse Ox 100% on 2 lpm NC; jb4 02:15 BP 118 / 55; Pulse 59; Resp 17; Pulse Ox 100% on 2 lpm NC; jb4 05/25 15:21 Body Mass Index 23.39 (73.94 kg, 177.80 cm) ld1 05/25 21:30 Pt normally on 2L NC at home. jb4 Shakila Coma Score: 15:21 Eye Response: spontaneous(4). Verbal Response: oriented(5). Motor Response: obeys ld1 commands(6). Total: 15. Trauma Score (Adult): 15:21 Eye Response: spontaneous(1); Verbal Response: oriented(1); Motor Response: obeys ld1 commands(2); Systolic BP: > 89 mm Hg(4); Respiratory Rate: 10 to 29 per min(4); [place] Score: 15; Trauma Score: 12 MDM: 15:28 Patient medically screened. kb 16:30 Data reviewed: vital signs, nurses notes. Data interpreted: Pulse oximetry: on room air kb is 95 %. Interpretation: normal. ED course: Dr Lorenzana called and requested blood work be done because pt did not complete his entire session of dialysis today. . 19:24 Physician consultation: Ag Wilson MD was contacted at 19:26, regarding kb consult, patient's condition, wants one unit PRBC transfused, recheck H\T\H and potassium after transfusion and pt can be discharged. . Transition of care: After a detail discussion of the patient's case, care is transferred to Hero Lane MD. 19:37 ED course: Took over patient from MICHELLE Mesa, at shift change, she spoke with Dr. kulwant Lorenzana, plan is to transfuse 1 unit and get post-h/h and potassium and reeval for discharge.. 05/26 01:17 Differential diagnosis: anemia, ESRD, hyperkalemia, dehydration, volume overload. rn Counseling: I had a detailed discussion with the patient and/or guardian regarding: the historical points, exam findings, and any diagnostic results supporting the discharge/admit diagnosis, lab results, the need for further work-up and treatment in the hospital. Admission orders: after a detailed discussion of the patient's condition and case, the admit orders are written by me. ED course: Hemoglobin did not really change, went from 6.1 to 6.2, Dr. Lorenzana did not want to discharge home if didn't change significantly, as patient did not complete dialysis and will not have dialysis for another couple of days. Will likely require a second unit of blood transfused, then dialysis. . 05/25 16:35 Order name: CBC with Diff; Complete Time: 18:26 kb 05/25 16:35 Order name: Basic Metabolic Panel; Complete Time: 18:51 kb 05/25 16:35 Order name: Protime (+inr); Complete Time: 18:34 kb 05/25 16:35 Order name: Ptt, Activated; Complete Time: 18:34 kb 05/25 18:26 Order name: Type And Screen kb 05/25 18:26 Order name: SARS RAPID; Complete Time: 20:38 kb 05/25 15:27 Order name: CT Head Brain wo Cont; Complete Time: 16:24 kb 05/25 15:27 Order name: CT Chest Wo Con kb 05/25 15:27 Order name: Knee Left 3 View XRAY; Complete Time: 16:42 kb 05/25 19:57 Order name: SARS-COV-2 RT PCR; Complete Time: 20:38 EDMS 05/25 20:36 Order name: Packed RBCs (Additional Unit) EDMS 05/26 00:23 Order name: CBC with Diff; Complete Time: 01:35 jb4 05/26 00:23 Order name: Basic Metabolic Panel; Complete Time: 01:09 jb4 05/26 00:46 Order name: CBC Smear Scan; Complete Time: 01:35 EDMS 05/25 15:27 Order name: Knee Right 3 View XRAY; Complete Time: 16:42 kb 05/25 15:33 Order name: Thorax Wo Con; Complete Time: 16:33 EDMS 05/25 16:35 Order name: IV Start; Complete Time: 19:42 kb 05/25 21:43 Order name: Transfuse; Complete Time: 22:21 rn Administered Medications: No medications were administered Disposition: 01:17 Co-signature as Attending Physician, Hero Lane MD I agree with the assessment and rn plan of care. Attestation: The patient's history, exam findings, diagnostics, and a summary of any interventions or procedures was reviewed in detail with Susana ARECHIGA. Disposition Summary: 05/26/22 01:19 Hospitalization Ordered Hospitalization Status: Observation rn Location: Telemetry/MedSurg (observation) rn Condition: Stable rn Problem: new rn Symptoms: have improved rn Bed/Room Type: Standard rn Provider: Cole Fatima(05/26/22 01:22) reynaldo Room Assignment: [facility](05/26/22 02:05) mw2 Diagnosis - Anemia, unspecified rn - End stage renal disease rn - Muscle weakness (generalized) rn Forms: - Medication Reconciliation Form rn - SBAR form rn Signatures: Dispatcher [employer] EDSusana Torrez, CLINICAL NURSING INTERN-C CLINICAL NURSING INTERN-Ckb Hero Lane MD MD rn Attema, Lee CLINICAL NURSING INTERN-C CLINICAL NURSING INTERN-King Jackson mw2 Montse Miller RN RN ld1 Corrections: (The following items were deleted from the chart) 01:22 01:19 Wendi Ruiz rn la1 02:05 01:19 rn mw2
--- NOTE | 2022-05-26 01:20 | ER ---
Nurse's Notes [facility] Name: Guzman Mayers Age: 77 yrs Sex: Male : 1945 Arrival Date: 05/25/2022 Time: 14:48 Bed 6 Private MD: Naveed Fortune Diagnosis: Anemia, unspecified;End stage renal disease;Muscle weakness (generalized) Presentation: 05/25 15:21 Chief complaint: Patient states: Fell from sitting position last night - pt reports DARINEL ld1 knee pain, right sided rib pain. Reports hitting head, negative LOC. Care prior to arrival: None. Mechanism of Injury: Fall out of chair. Trauma event details: Injury occurred in the [facility]. 15:21 Acuity: CHICHO 3 ld1 15:21 Method Of Arrival: Wheelchair ld1 15:26 Coronavirus screen: At this time, the client does not indicate any symptoms associated ld1 with coronavirus-19. Ebola Screen: No symptoms or risks identified at this time. Initial Sepsis Screen: Does the patient meet any 2 criteria? No. Patient's initial sepsis screen is negative. Does the patient have a suspected source of infection? No. Patient's initial sepsis screen is negative. Risk Assessment: Do you want to hurt yourself or someone else? Patient reports no desire to harm self or others. Onset of symptoms was May 25, 2022. Historical: - Allergies: 15:26 Codeine; ld1 15:26 GABAPENTIN; ld1 - PMHx: 15:26 ADD/ADHD; CHF; Hypertension; Diabetes - IDDM; HTN; dialysis tues, thurs, sat, uses o2 ld1 when sleeping.; CKD; COPD; Dialysis; High Cholesterol; - Immunization history: Last tetanus immunization: unknown. - Social history:: Smoking status: Patient denies any tobacco usage or history of. Patient/guardian denies using alcohol. Screenin:21 Abuse screen: Denies threats or abuse. Denies injuries from another. Tuberculosis ld1 screening: No symptoms or risk factors identified. Primary Survey: 15:21 NO uncontrolled hemorrhage observed. Breathing/Chest: Spontaneous respiratory effort, ld1 equal unlabored respirations, breath sounds clear bilaterally, regular pattern, symmetrical chest rise and fall. Circulation: No external hemorrhage present. Regular and strong central pulse, skin warm/dry/normal color. Disability Client is alert. Exposure/Environment: All clothing and personal items were removed. Forensic evidence collection is not deemed to be indicated at this time. Items placed in patient belonging bag. Assessment: 15:21 General: Appears in no apparent distress. comfortable, Behavior is calm, cooperative, ld1 appropriate for age. Pain: Complains of pain in right knee and left knee Pain does not radiate. Pain currently is 7 out of 10 on a pain scale. Quality of pain is described as throbbing. Neuro: Level of Consciousness is awake, alert, obeys commands, Oriented to person, place, time, situation. EENT: No signs and/or symptoms were reported regarding the EENT system. Cardiovascular: Capillary refill < 3 seconds Patient's skin is warm and dry. Respiratory: Airway is patent Respiratory effort is even, unlabored. GI: Abdomen is flat, non-distended. : No signs and/or symptoms were reported regarding the genitourinary system. Derm: No signs and/or symptoms reported regarding the dermatologic system. Musculoskeletal: No signs and/or symptoms reported regarding the musculoskeletal system. 19:45 Reassessment: Patient appears in no apparent distress at this time. Patient and/or jb4 family updated on plan of care and expected duration. Pain level reassessed. Patient is alert, oriented x 3, equal unlabored respirations, skin warm/dry/pink. 20:30 Reassessment: Patient appears in no apparent distress at this time. Patient and/or jb4 family updated on plan of care and expected duration. Pain level reassessed. Patient is alert, oriented x 3, equal unlabored respirations, skin warm/dry/pink. 21:30 Reassessment: Patient appears in no apparent distress at this time. Patient and/or jb4 family updated on plan of care and expected duration. Pain level reassessed. Patient is alert, oriented x 3, equal unlabored respirations, skin warm/dry/pink. 22:29 Reassessment: Blood transfusion started. jb4 23:30 Reassessment: Patient appears in no apparent distress at this time. Patient and/or jb4 family updated on plan of care and expected duration. Pain level reassessed. Patient is alert, oriented x 3, equal unlabored respirations, skin warm/dry/pink. 05/26 00:18 Reassessment: Patient appears in no apparent distress at this time. Patient and/or jb4 family updated on plan of care and expected duration. Pain level reassessed. Patient is alert, oriented x 3, equal unlabored respirations, skin warm/dry/pink. Blood transfusion complete, no s/s of reaction noted. 01:15 Reassessment: Patient appears in no apparent distress at this time. Patient and/or jb4 family updated on plan of care and expected duration. Pain level reassessed. Patient is alert, oriented x 3, equal unlabored respirations, skin warm/dry/pink. provider at the bedside. 02:20 Reassessment: Patient appears in no apparent distress at this time. Patient and/or jb4 family updated on plan of care and expected duration. Pain level reassessed. Patient is alert, oriented x 3, equal unlabored respirations, skin warm/dry/pink. Vital Signs: 05/25 15:21 BP 109 / 61; Pulse 84; Resp 18; Temp 97.0(O); Pulse Ox 95% on R/A; Weight 73.94 kg; ld1 Height 5 ft. 10 in. (177.80 cm); Pain 5/10; 20:45 BP 107 / 42; Pulse 59; Resp 16; Pulse Ox 98% on R/A; jb4 21:30 BP 111 / 46; Pulse 59; Resp 17; Pulse Ox 96% on 2 lpm NC; jb4 22:00 BP 111 / 48; Pulse 60; Resp 17; Pulse Ox 100% ; pf1 23:00 BP 121 / 52; Pulse 59; Resp 18; Temp 98.9(O); Pulse Ox 100% on 2 lpm NC; pf1 05/26 00:18 BP 106 / 50; Pulse 60; Resp 21; Temp 99.0(O); Pulse Ox 100% on 2 lpm NC; jb4 01:00 BP 126 / 56; Pulse 60; Resp 18; Pulse Ox 100% on 2 lpm NC; jb4 02:15 BP 118 / 55; Pulse 59; Resp 17; Pulse Ox 100% on 2 lpm NC; jb4 05/25 15:21 Body Mass Index 23.39 (73.94 kg, 177.80 cm) ld1 05/25 21:30 Pt normally on 2L NC at home. jb4 Shakila Coma Score: 15:21 Eye Response: spontaneous(4). Verbal Response: oriented(5). Motor Response: obeys ld1 commands(6). Total: 15. Trauma Score (Adult): 15:21 Eye Response: spontaneous(1); Verbal Response: oriented(1); Motor Response: obeys ld1 commands(2); Systolic BP: > 89 mm Hg(4); Respiratory Rate: 10 to 29 per min(4); Shakila Score: 15; Trauma Score: 12 ED Course: 14:48 Patient arrived in ED. mr 14:48 Naveed Fortune DO is Private Physician. mr 14:58 Susana Mesa, GENI is [facility]. kb 14:58 Anderson Mitchell MD is Attending Physician. kb 15:21 Patient has correct armband on for positive identification. Patient maintains SpO2 ld1 saturation greater than 95% on room air. 15:21 Patient maintains SpO2 saturation greater than 95% on room air. ld1 15:22 Triage completed. ld1 15:26 Arm band placed on right wrist. ld1 16:02 CT Head Brain wo Cont In Process Unspecified. EDMS 16:06 Thorax Wo Con In Process Unspecified. EDMS 16:32 Knee Left 3 View XRAY In Process Unspecified. EDMS 16:32 Knee Right 3 View XRAY In Process Unspecified. EDMS 19:25 Attending Physician role handed off by Anderson Mitchell MD rn 19:[address] MD is Attending Physician. rn 19:45 Jonny Alonso, RN is Primary Nurse. jb4 05/26 01:18 Wendi Ruiz MD is Hospitalizing Provider. rn 01:22 Cole Fatima is Hospitalizing Provider. la1 Administered Medications: No medications were administered Outcome: 01:19 Decision to Hospitalize by Provider. rn 02:46 Patient left the ED. pf1 Signatures: Dispatcher [employer] EDMS Susana Mesa, GENI CADET-Beatrice Bora Kelly mr Hero Lane MD MD rn Attema, Lee, FNP-C FNP-Jonny Coffman, RN RN jb4 Montse Miller RN RN ld1 Tika amado RN RN pf1
--- NOTE | 2022-05-26 02:20 | P.HP ---
Certification for Inpatient Patient admitted to: Observation With expected LOS: <2 Midnights Patient will require the following post-hospital care: None Practitioner: I am a practitioner with admitting privileges, knowledge of patient current condition, hospital course, and medical plan of care. Services: Services provided to patient in accordance with Admission requirements found in Title 42 Section 412.3 of the Code of Federal Regulations Patient History Date of Service: 05/26/22 Reason for admission: Anemia, ESRD, fall History of Present Illness: 77-year-old male with history of ESRD on HD MWF, diabetes mellitus type 2insulin-dependent, COPD, chronic diastolic congestive heart failure, PAD presents emergencydepartment after sustaining a fall on the night of May 24. He reports he was using the toilet when trying to transfer to the bed and fell forward hitting his knees and falling to the ground. He was evaluated in the emergency department, his labs were significant for macrocytic anemia with hemoglobin 6.1 hematocrit 17.3, sodium 134 potassium 4.5 creatinine 4.23 GFR 14 glucose 348 initially. Patient with history of anemia of chronic disease has required blood transfusions in the past. Denies any melena, hematochezia, hematemesis initially recommended patient be transfused 1 unit with repeat labs after. Patient's hemoglobin only increased from 6.1 up to 6.2, for this reason the hospital service was consulted for admission. Plan is to transfuse patient with dialysis as he did not fully complete his dialysis on Wednesday. He also had x-rays of both knees performed which were negative for any fractures, CT of the head which was negative for any acute intracranial abnormality, CT of the chest was performed which did reveal moderate right pleural effusion which is decreased from prior. Increased volume loss at the site of consolidation in the right upper lobe suggesting the sequela of infectious or inflammatory process. Healing right-sided rib fractures to the right third, fourth, fifth ribs. Allergies codeine Allergy (Verified 10/15/21 23:40) Hallucinations gabapentin Adverse Reaction (Verified 10/15/21 23:40) Hallucinations Home Medications: Aspirin 1 tab PO BID 10/16/21 Atorvastatin Calcium 1 tab PO BEDTIME 10/16/21 Carvedilol [Coreg] 1 tab PO DAILY 10/16/21 Citalopram Hydrobromide [Citalopram HBr] 1 tab PO DAILY 10/16/21 Insulin Glargine,Hum.rec.anlog [Basaglar Kwikpen U-100] 50 unit SQ DAILY 10/16/21 Multivit-Min/FA/Lycopen/Lutein [Centrum Silver Tablet] 1 tab PO DAILY 10/16/21 Pantoprazole Sodium 1 tab PO DAILY 10/16/21 Vit A/Vit C/Vit E/Zinc/Copper [Preservision Areds Softgel] 1 cap PO DAILY 10/16/21 Vit B Comp C/Folic Acid/Vit D3 [Dialyvite 800 Plus D Wafer] 1 tab PO DAILY 10/16/21 bisacodyL [Laxative] 1 tab PO DAILY 10/16/21 Acetaminophen [Tylenol Extra Strength] 500 mg PO Q4H PRN 01/12/22 Benzonatate [Tessalon Perle*] 100 mg PO TID PRN cap 01/12/22 Citalopram [Celexa*] 20 mg PO DAILY 01/23/22 D10w [Dextrose 10% Water IV Soln*] 125 ml IV PRN PRN bag 01/23/22 [id number] Plus D Wafer 1 tab PO DAILY 01/23/22 Docusate/Senna [Senokot-S*] 2 tab PO BEDTIME PRN tab 01/23/22 Epoetin [Retacrit] 10,000 unit IV EVERY HD vial 01/23/22 Lidocaine 4% Patch [Lidoderm 5% Patch*] 1 patch TOP DAILY patch 01/23/22 Nepro Shake [Nepro*] 237 ml PO BID #60 can 01/23/22 bisacodyL [Dulcolax*] 5 mg PO DAILY PRN tab 01/23/22 carvediloL [Coreg*] 3.125 mg PO DAILY tab 01/23/22 predniSONE [Deltasone*] 10 mg PO BID #60 tab 01/23/22 - Past Medical/Surgical History Diabetic: Yes -: Hypertension -: Hyperlipidemia -: Diabetes type 2, insulin dependent -: End-stage renal disease, hemodialysis-Wednesday, and Saturdays -: Diastolic CHF -: COPD -: skin graft for elctrical persaud - BLE 1970s -: Right shoulder surgery -: bilateral leg surgery Psychosocial/ Personal History: Patient is . He has 3 children - Family History mother and father Notes: adopted - Social History Alcohol use: No CD- Drugs: No Caffeine use: No Place of Residence: Home Review of Systems 10-point ROS is otherwise unremarkable Musculoskeletal: Other (Knee pain) Physical Examination - Physical Exam General: Alert, In no apparent distress, Oriented x3 HEENT: Atraumatic, PERRLA, Mucous membr. moist/pink, EOMI, Sclerae nonicteric Neck: Supple, 2+ carotid pulse no bruit, No LAD, Without JVD or thyroid abnormality Respiratory: Clear to auscultation bilaterally, Normal air movement Cardiovascular: Regular rate/rhythm, Normal S1 S2 Gastrointestinal: Normal bowel sounds, No tenderness Musculoskeletal: No tenderness Integumentary: No rashes Neurological: Normal gait, Normal speech, Normal strength at 5/5 x4 extr, Normal tone, Normal affect Lymphatics: No axilla or inguinal lymphadenopathy - Studies Laboratory Data (last 24 hrs) 05/26/22 00:29: Sodium 134 L, Potassium 4.6, BUN 37 H, Creatinine 4.48 H, Glucose 229 H 05/26/22 00:29: WBC 7.40, Hgb 6.2 L*, Hct 17.9 L*, Plt Count 281 05/25/22 18:09: PT 16.0 H, INR 1.45, APTT 29.0 05/25/22 18:09: Sodium 134 L, Potassium 4.5, BUN 33 H, Creatinine 4.23 H, Glucose 348 H 05/25/22 18:09: WBC 8.30, Hgb 6.1 L*, Hct 17.3 L*, Plt Count 298 Assessment and Plan - Plan Assessment: Acute on chronic anemia of chronic disease ESRD on HD MWF Fall resulting in fractures of right third, fourth, fifth ribs Diabetes mellitus type 2insulin-dependent COPD Chronic diastolic congestive heart failure Plan: Acute on chronic anemia of chronic disease: Patient transfused 1 unit packed red blood cells emergency department, hemoglobin only increased from 6.1 up to 6.2. Plan for additional unit during dialysis today. Nephrology consulted for assistance in arranging. Patient denies any melena, hematochezia, hematemesis. ESRD on HD MWF: Continue as above, nephrology consulted. Director [employer] reported the patient did not complete his dialysis on Wednesday. Fall resulting in fractures of right third, fourth, fifth ribs: Incentive spirometry, as needed pain medication. Wears oxygen at night for sleep2 L. Diabetes mellitus type 2insulin-dependent: Patient takes Lantus 50 units daily at home, continue reduced dose long-acting insulin during hospitalization as wel l as sliding scale. COPD: As needed inhaler/nebulizer. Chronic diastolic congestive heart failure: Managed with dialysis, patient no longer makes any urine. DVT PPX: SCD Code status: Full Discharge Plan: Home Plan to discharge in: 24 Hours - Advance Directives Does patient have a Living Will: No Does patient have a Durable POA for Healthcare: No - Code Status/Comfort Care Code Status Assessed: Yes (Full code) Critical Care: No Time Spent Managing Pts Care (In Minutes): 55
[2022-05-26] MEDS ORDERED: TRAMADOL HCL 50 MG TAB PO PRN (03:04)
[2022-05-26] MEDS ORDERED: ONDANSETRON 4 MG/2 ML VIAL IV PRN (03:04)
[2022-05-26 03:48] VITALS: BMI 24.2
[2022-05-26] MEDS: INSULIN -REGULAR HUMAN 50 UNIT/0.5 ML ML SQ SCH ×4 (09:03→21:00)
[2022-05-26] MEDS: ASPIRIN EC 81 MG TAB PO SCH (09:03)
[2022-05-26] MEDS: INSULIN GLARGINE 100 UNIT/ML SQ SCH (09:03)
--- NOTE | 2022-05-26 10:22 | P.CNS ---
Date of Consult: 05/26/22 Reason for Consult: ESRD , fluid and electrolytes management Chief Complaint: Anemia, ESRD, fall History of Present Illness: A 77 Y/o man with PMhx of ESRd on HD MWF , anemia of chronic disease, HTN , whs was admitted after fall, ptfell while trying to use Toilet ,and cam to ER , imaging studies with rubs fracture , Hb 6.1, pt received 1 PRBC with no significant improvement in Hb , pt stated he admitted to [place] few months ago for anemia, received 2 PRBC, no EGD or colonoscopy done as per Pt ROS General : feeling weak HEENT: Denies dry, vision changes and headache Resp: denies SOB, cough or wheezes Cardiovascular: denied chest pain, palpitation , no SOB GI: denies abdominal pain, diarrhea or constipation : denies dysuria, urgency, foamy urine or blood tinged urine Musculoskeletal: leg and chest side pain Endo: denies polyuria and and polydipsia Extre: denies pain numbness and swelling Physical exam General: AAOx3, in distress, obese HEENT PERRLA, moist mucose membrane neck: supple, no elevated JVD CHEST; decreased air entry HEART : RRR. Normal S1,2 no murmur or rub Abd: soft, Nt Ext: trace edema Skin : No rash #ESRD on outpt HD MWF at [facility]. HD today and tomorrow renal diet renal dose medications #Acute on chronic anemia S/p PRBC will transfuse 2 PRBC with HD today had trauma will order CT scan to R/o hematoma No active bleeding #Pleural effusuion cont HD might benefit from thoracenecis #Peripheral artery disease. Per other services. #DM2. Per primary team. #S/P fall Supportive care PT/OT Total time spent 65 minutes including documentation, reviewing labs , placing orders and discussing with medical team Allergies codeine Allergy (Verified 10/15/21 23:40) Hallucinations gabapentin Adverse Reaction (Verified 10/15/21 23:40) Hallucinations Home Medications: Atorvastatin Calcium 1 tab PO BEDTIME 10/16/21 Carvedilol [Coreg] 1 tab PO BID 10/16/21 Insulin Glargine,Hum.rec.anlog [Basaglar Kwikpen U-100] 50 unit SQ DAILY 10/16/21 Vit A/Vit C/Vit E/Zinc/Copper [Preservision Areds Softgel] 1 cap PO DAILY 10/16/21 Vit B Comp C/Folic Acid/Vit D3 [Dialyvite 800 Plus D Wafer] 1 tab PO DAILY 10/16/21 bisacodyL [Laxative] 1 tab PO DAILY 10/16/21 Apixaban [Eliquis *] 2.5 mg PO BID 05/26/22 Sertraline HCl 50 mg PO DAILY 05/26/22 - Past Medical/Surgical History Diabetic: Yes -: Hypertension -: Hyperlipidemia -: Diabetes type 2, insulin dependent -: End-stage renal disease, hemodialysis-Wednesday, and Saturdays -: Diastolic CHF -: COPD -: skin graft for elctrical persaud - BLE 1970s -: Right shoulder surgery -: bilateral leg surgery Psychosocial/ Personal History: Patient is . He has 3 children - Family History mother and father Notes: adopted - Social History Smoking Status: Unknown if ever smoked Alcohol use: No CD- Drugs: No Caffeine use: Yes Place of Residence: Home Physical Examination Temp Pulse Resp BP Pulse Ox 98.8 F 80 15 121/48 L 99 05/26/22 08:00 05/26/22 08:00 05/26/22 08:00 05/26/22 08:00 05/26/22 08:00 Laboratory Data (last 24 hrs) 05/26/22 00:29: Sodium 134 L, Potassium 4.6, BUN 37 H, Creatinine 4.48 H, Glucose 229 H 05/26/22 00:29: WBC 7.40, Hgb 6.2 L*, Hct 17.9 L*, Plt Count 281 05/25/22 18:09: PT 16.0 H, INR 1.45, APTT 29.0 05/25/22 18:09: Sodium 134 L, Potassium 4.5, BUN 33 H, Creatinine 4.23 H, Glucose 348 H 05/25/22 18:09: WBC 8.30, Hgb 6.1 L*, Hct 17.3 L*, Plt Count 298
--- NOTE | 2022-05-26 12:09 | RAD REPORT ---
EXAM DESCRIPTION: CT - Chest Abdomen Pelvis W Cont - 05/26/2022 11:28 am CLINICAL HISTORY: Chest and abdomen pain. trauma, anemia , hematoma COMPARISON: Thorax Wo Con dated 05/25/2022 TECHNIQUE: Approximately 100 mL nonionic IV contrast was administered to the patient. All CT scans are performed using dose optimization technique as appropriate and may include automated exposure control or mA/KV adjustment according to patient size. FINDINGS: Moderate-size opacity is seen in the posterior right upper lobe. Linear atelectasis is pre sent in both lung bases.Moderate right pleural effusion is seen.Moderate cardiomegaly.No intrathoraci c adenopathy.Several healing right-sided rib fractures noted. The right lateral eleventh rib demonstr ates evidence of a fracture which may be acute in timeframe. Moderate hiatal hernia. No liver mass or biliary dilatation seen. Cholelithiasis. Spleen is mildly prominent. Pancreas and ri ght adrenal gland are normal. 18 mm mass is present left adrenal gland, nonspecific. Both kidneys are small in size. No hydronephrosis. Several left renal cyst evident. No bowel obstruction, free air, free fluid or abscess. Normal appendix. Significant diverticulosis co li without diverticulitis. No pathologic lymphadenopathy in the abdomen or pelvis. Large bilateral fa t containing inguinal hernias, larger on the left. No worrisome osseous finding. IMPRESSION: Moderate opacity posterior right upper may represent loculated pleural fluid.Moderate ri ght pleural effusion is seen. Suspected nondisplaced acute fracture involving the lateral right eleventh rib. Cholelithiasis. Significant diverticulosis of the sigmoid colon without diverticulitis. Large bilateral fat containing inguinal hernias, larger on the left.
[2022-05-26] MEDS ORDERED: NA CHLORIDE 0.9% 250 ML ONE (12:47)
[2022-05-26] MEDS: EPOETIN ALFA 10,000 UNIT/ML VIAL IV SCH (15:30)
--- NOTE | 2022-05-26 18:28 | P.PN ---
Date of Service: 05/26/22 Patient seen and examined. He has no new complain. Hemoglobin did not improve after 1 unit PRBC. Seen by nephrology who recommended 2 more units PRBC during dialysis. CT abdomen and pelvis demonstrated nondisplaced fractured rib. No evidence of hematoma. CT also demonstrated possible loculated right pleural effusion. Monitor CBC posttransfusion. Nephrology to follow. Patient may require US guided thoracentesis.
[2022-05-26] MEDS: ATORVASTATIN 40 MG TAB PO SCH (21:37)
[2022-05-27 04:22] LABS: Absolute Lymphocytes (CBC) 1.6 K/uL (0.7-4.9); Hematocrit 25.5 % (39.6-49.0); Lymphocytes % 14.9 % (15.3-44.8); MCV 99.1 fL (80-100); MPV 6.3 fL (7.6-11.3); RBC Red Blood Cell Count 2.57 M/uL (4.33-5.43)
[2022-05-27 04:43] LABS: Albumin 2.6 g/dL (3.4-5.0); Potassium 3.6 mmol/L (3.5-5.1); Protein, Total 6.1 g/dL (6.4-8.2)
[2022-05-27] MEDS: INSULIN -REGULAR HUMAN 50 UNIT/0.5 ML ML SQ SCH ×4 (07:30→21:49)
[2022-05-27] MEDS: INSULIN GLARGINE 100 UNIT/ML SQ SCH (09:00)
--- NOTE | 2022-05-27 10:31 | RAD REPORT ---
EXAM DESCRIPTION: US - Thoracentesis w/ US Guide - 05/27/2022 10:20 am CLINICAL HISTORY: Pleural effusion. Loculated right pleural effusion COMPARISON: Thoracentesis w/ US Guide dated 01/26/2022 FINDINGS: Preoperative diagnosis: Right pleural effusion Post operative diagnosis: Same Conscious Sedation: None. Estimated blood loss: Minimal Specimens:A small volume of fluid was sent for requested lab studies. The patient was placed in the upright recumbent position and the right chest was prepped and draped i n the usual sterile fashion. 1% Lidocaine was infiltrated into the soft tissues for local anesthesia . Under sonographic guidance, a thoracentesis needle and 6 Burkinan catheter was advanced into the rig ht pleural space. Approximately 1100 mL yellow fluid was aspirated. Samples were sent to pathology fo r requested analysis. The patient tolerated the procedure without immediate complication and transfer red to the floor in stable condition. IMPRESSION: Successful ultrasound-guided thoracentesis as detailed.
[2022-05-27] MEDS: ASPIRIN EC 81 MG TAB PO SCH (11:21)
--- NOTE | 2022-05-27 13:34 | P.PN ---
Subjective Date of Service: 05/27/22 Chief Complaint: Anemia, ESRD, fall A 77 Y/o man with PMhx of ESRd on HD MWF , anemia of chronic disease, HTN , whs was admitted after fall, ptfell while trying to use Toilet ,and cam to ER , imaging studies with rubs fracture , Hb 6.1, pt received 1 PRBC with no significant improvement in Hb , pt stated he admitted to [place] few months ago for anemia, received 2 PRBC, no EGD or colonoscopy done as per Pt today feels better Hb 9.0 S/P 1.1 liter thoracenetecis can be discharged from nephrology point of view and to resume HD on Wednesday Physical exam General: AAOx3, in distress, obese HEENT PERRLA, moist mucose membrane neck: supple, no elevated JVD CHEST; decreased air entry HEART : RRR. Normal S1,2 no murmur or rub Abd: soft, Nt Ext: trace edema Skin : No rash #ESRD on outpt HD MWF at [facility]. S/p HD yesterday renal diet renal dose medications can be discharged from nephrology point of view and to resume HD on Wednesday #Acute on chronic anemia S/p 3PRBC CT scan : no hematoma No active bleeding #Pleural effusuion cont HD S/p 1.1 liter thoracenecis #Peripheral artery disease. Per other services. #DM2. Per primary team. #S/P fall Supportive care PT/OT Total time spent 45 minutes including documentation, reviewing labs , placing orders and discussing with medical team Physical Examination - Vital Signs Temperature: 98.5 F Blood Pressure: 105/39 Pulse: 61 Respirations: 16 Pulse Ox (%): 100
[2022-05-27 13:35] LABS: Body Fluid Source PLEURAL; Color of fluid Yellow (COLORLESS)
[2022-05-27 13:36] LABS: Appearance SLT. TURBID (CLEAR); Body Fluid WBC 613 /mm^3
--- NOTE | 2022-05-27 17:23 | P.PN ---
Subjective Date of Service: 05/27/22 Chief Complaint: Anemia, ESRD, fall Patient states he feels much better today. Posttransfusion hemoglobin is up to 9. He underwent hemodialysis yesterday. Physical Examination - Vital Signs Temperature: 99.0 F Blood Pressure: 123/51 Pulse: 60 Respirations: 16 Pulse Ox (%): 100 - Physical Exam General: Alert, In no apparent distress, Oriented x3 HEENT: Mucous membr. moist/pink Neck: JVD not distended Respiratory: Clear to auscultation bilaterally, Normal air movement Cardiovascular: Regular rate/rhythm, Normal S1 S2 Gastrointestinal: Normal bowel sounds, Soft and benign, Non-distended Musculoskeletal: No tenderness Integumentary: No cyanosis Neurological: Normal strength at 5/5 x4 extr Assessment And Plan - Current Problems (Diagnosis) (1) Anemia in ESRD (end-stage renal disease) Current Visit: No Status: Acute (2) Pleural effusion Current Visit: Yes Status: Acute (3) ESRD (end stage renal disease) on dialysis Current Visit: Yes Status: Acute (4) Type 2 diabetes mellitus Current Visit: No Status: Chronic Qualifiers: Diabetes mellitus skilled nursing insulin use: with intermediate manager use Diabetes mellitus complication status: with hyperglycemia Qualified Code(s): E11.65 - Type 2 diabetes mellitus with hyperglycemia; Z79.4 - MCC (current) use of insulin - Plan Status post 2 unit PRBC transfusion. Hemoglobin is up to 9. No evidence of active bleeding CT chest abdomen pelvis revealed loculated right upper lobe pleural effusion. Status postthoracentesis today, pleural fluid cell count is unremarkable. I will obtain chest x-ray postthoracentesis and also to evaluate for possible pneumonia or mass given recurrent loculated effusion. CT abdomen and pelvis demonstrated nondisplaced fractured rib. No evidence of hematoma. Continue to monitor CBC Nephrology is planning another hemodialysis tomorrow.
--- NOTE | 2022-05-27 18:09 | RAD REPORT ---
EXAM DESCRIPTION: RAD - Chest Single View - 05/27/2022 5:31 pm CLINICAL HISTORY: Post thoracentesis. COMPARISON: CT chest 05/26/2022 TECHNIQUE: AP portable chest image was obtained 05/27/2022 5:31 pm . FINDINGS: Post thoracentesis chest film shows no pneumothorax. Prominent interstitial pattern is pre sent believed to be baseline. Severity of the chronic lung parenchymal pattern could mask edema or in filtrate. Central vasculature remains prominent. Cardiac silhouette is prominent bladder is probably improved slightly from January 28 study. Trachea is midline. No acute bony abnormality seen. No acute aortic findings suspected. IMPRESSION: No pneumothorax seen on post thoracentesis chest film. Extensive interstitial opacification pattern not substantially different from comparison. Severity of chronic disease could mask interstitial edema or infiltrate.
[2022-05-27] MEDS: NEPRO SHAKE 237 ML CAN PO SCH (21:00)
[2022-05-27 21:02] VITALS: O2SAT 92
[2022-05-27] MEDS: ATORVASTATIN 40 MG TAB PO SCH (21:49)
[2022-05-28] MEDS: INSULIN -REGULAR HUMAN 50 UNIT/0.5 ML ML SQ SCH ×2 (07:30→11:30)
[2022-05-28] MEDS: ASPIRIN EC 81 MG TAB PO SCH (08:54)
[2022-05-28] MEDS: INSULIN GLARGINE 100 UNIT/ML SQ SCH (08:54)
[2022-05-28] MEDS: NEPRO SHAKE 237 ML CAN PO SCH (08:55)
--- NOTE | 2022-05-28 08:55 | P.DS ---
Admission Date: 05/27/22 Discharge Date: 05/28/22 Disposition: [facility] Discharge Condition: FAIR Reason for Admission: Anemia, ESRD, fall - Problems (1) Anemia in ESRD (end-stage renal disease) Current Visit: No Status: Acute (2) Pleural effusion Current Visit: Yes Status: Acute (3) ESRD (end stage renal disease) on dialysis Current Visit: Yes Status: Acute (4) Type 2 diabetes mellitus Current Visit: No Status: Chronic Qualifiers: Diabetes mellitus fpc insulin use: with intermodal dispatcher use Diabetes mellitus complication status: with hyperglycemia Qualified Code(s): E11.65 - Type 2 diabetes mellitus with hyperglycemia; Z79.4 - snf (current) use of insulin (5) Balanitis Current Visit: Yes Status: Acute Brief History of Present Illness: 77-year-old male with history of ESRD on HD MWF, diabetes mellitus type 2insulin-dependent, COPD, chronic diastolic congestive heart failure, PAD presented to the emergency department after sustaining a fall on the night of May 24. He reports he was using the toilet when trying to transfer to the bed and fell forward hitting his knees and falling to the ground. He was evaluated in the emergency department, his labs were significant for macrocytic anemia with hemoglobin 6.1 hematocrit 17.3, sodium 134 potassium 4.5 creatinine 4.23 GFR 14 glucose 348 initially. Patient with history of anemia of chronic disease has required blood transfusions in the past. He denied any melena, hematochezia, hematemesis. CT of the chest was performed which did reveal moderate right pleural effusion which is decreased from prior, increased volume loss at the site of consolidation in the right upper lobe suggesting the sequela of infectious or inflammatory process, healing right-sided rib fractures to the right third, fourth, fifth ribs. He had x-rays of both knees performed which were negative for any fractures, CT of the head which was negative for any acute intracranial abnormality. Patient's hemoglobin only increased from 6.1 up to 6.2 after 1 unit of PRBC transfusion. Patient was hospitalized for further management. Hospital Course: Patient admitted to the medical floor and transfused a total of 3 unit PRBC. Status post 2 unit PRBC transfusion. Post transfusion hemoglobin is up to 9. No evidence of active bleeding CT chest abdomen pelvis revealed loculated right upper lobe pleural effusion. Status post US guided thoracentesis, pleural fluid cell count is unremarkable. Chest x-ray done after thoracentesis showed no pneumothorax, and demonstrated interstitial lung disease unchanged from previous images. CT abdomen and pelvis demonstrated nondisplaced fractured rib. No evidence of hematoma. He was seen by nephrology and he underwent routine hemodialysis. Patient has clinically improved and deemed stable for discharge. Patient is prescribed fluconazole after each dialysis to complete 2 weeks of treatment for balanitis. Vital Signs/Physical Exam: Temp Pulse Resp BP Pulse Ox 98.0 F 85 20 145/61 H 96 05/28/22 08:00 05/28/22 08:00 05/28/22 08:00 05/28/22 08:00 05/28/22 08:00 General: Alert, In no apparent distress HEENT: Mucous membr. moist/pink Neck: JVD not distended Respiratory: Clear to auscultation bilaterally, Normal air movement Cardiovascular: Regular rate/rhythm, Normal S1 S2 Gastrointestinal: Soft and benign, Non-distended Musculoskeletal: No swelling Neurological: Normal strength at 5/5 x4 extr Laboratory Data at Discharge: WBC 10.70 K/uL (4.3-10.9) 05/27/22 03:59 Hgb 9.0 g/dL (13.6-17.9) L D 05/27/22 03:59 Hct 25.5 % (39.6-49.0) L 05/27/22 03:59 Plt Count 294 K/uL (152-406) 05/27/22 03:59 PT 16.0 SECONDS (9.5-12.5) H 05/25/22 18:09 INR 1.45 05/25/22 18:09 APTT 29.0 SECONDS (24.3-36.9) 05/25/22 18:09 Sodium 135 mmol/L (136-145) L 05/27/22 03:59 Potassium 3.6 mmol/L (3.5-5.1) D 05/27/22 03:59 BUN 24 mg/dL (7-18) H 05/27/22 03:59 Creatinine 3.90 mg/dL (0.70-1.30) H 05/27/22 03:59 Glucose 86 mg/dL (74-106) 05/27/22 03:59 Total Bilirubin 1.0 mg/dL (0.2-1.0) 05/27/22 03:59 AST 13 U/L (15-37) L 05/27/22 03:59 ALT 21 U/L (16-61) 05/27/22 03:59 Alkaline Phosphatase 296 U/L (45-117) H 05/27/22 03:59 Home Medications: Atorvastatin Calcium 1 tab PO BEDTIME 10/16/21 Insulin Glargine,Hum.rec.anlog [Basaglar Kwikpen U-100] 50 unit SQ DAILY 10/16/21 Vit A/Vit C/Vit E/Zinc/Copper [Preservision Areds Softgel] 1 cap PO DAILY 10/16/21 Vit B Comp C/Folic Acid/Vit D3 [Dialyvite 800 Plus D Wafer] 1 tab PO DAILY 10/16/21 bisacodyL [Laxative] 1 tab PO DAILY 10/16/21 Sertraline HCl 50 mg PO DAILY 05/26/22 Aspirin [Aspirin EC 81 MG] 81 mg PO DAILY #30 tab 05/28/22 Doxycycline Hyclate 100 mg PO BID #14 cap 05/28/22 Epoetin [Retacrit] 10,000 unit IV EVERY HD vial 05/28/22 Fluconazole 200 mg PO AFTER EACH DIALYSIS #6 tab 05/28/22 Insulin Glargine,Hum.rec.anlog [Semglee] 30 unit SQ DAILY ml 05/28/22 Nepro Shake [Nepro*] 237 ml PO BID #60 can 05/28/22 New Medications: Aspirin [Aspirin EC 81 MG] 81 mg PO DAILY #30 tab Doxycycline Hyclate 100 mg PO BID #14 cap Fluconazole 200 mg PO AFTER EACH DIALYSIS #6 tab Nepro Shake [Nepro*] 237 ml PO BID #60 can Diet: Renal Activity: Fall precautions Time spent managing pt's care (in minutes): 36
[2022-05-28] MEDS: EPOETIN ALFA 10,000 UNIT/ML VIAL IV SCH (11:30)
[2022-05-28 12:54] VITALS: BP 120/59; TEMP 97.1
[2022-05-28] MEDS ORDERED: FLUCONAZOLE 100 MG TAB PO ONE (16:00)
[2022-05-28] MEDS ORDERED: FLUCONAZOLE 100 MG TAB PO SCH (16:00)
--- NOTE | 2022-05-28 22:29 | PN ---
Date of Progress Note: 05/28/2022 Chief Complaint: End-stage renal disease, status post fall, severe anemia. Subjective: The patient is a 77-year-old man with history of end-stage renal disease, on hemodialysi s on Wednesday, Wednesday, Wednesday; anemia of chronic disease; and hypertension. He was admitted after a fall. He denied syncope. He was found to have severe anemia. Hemoglobin level was 6.1. The patie nt received 1 unit of packed red blood cells with no significant improvement of hemoglobin and subseq uently 2 units were provided for transfusion. The patient did not have EGD or colonoscopy. The nic ent needs to follow up with GI for EGD or colonoscopy. The patient is feeling better and he underwen t thoracentesis during this admission. Review of Systems: Denies fever or chills. Physical Examination: Lungs: Clear to auscultation bilaterally. Heart: S1, S2. Abdomen: Soft. Extremities: Minimal edema. Impression And Plan: 1.End-stage renal disease. Continue dialysis. Next dialysis treatment tomorrow. 2.Patient has severe anemia. Continue to monitor hemoglobin level. Continue LUANNE and IV iron. The patient received 3 units of packed red blood cells. The patient will need a GI consultation. Curren tly there is no active bleeding and CT scan did not show hematoma. 3.Pleural effusion, status post 1.1 L thoracentesis. Continue low-sodium diet and p.o. fluid restri ction. Continue dialysis to control volemia. 4.Diabetes mellitus, per Primary Team. 5.Renal osteodystrophy. Monitor phosphorus level. Continue binders. EB/MODL Voice ID: [id number] Report ID: [id number]
[2022-05-31 11:48] LABS: ALBUMIN, PLEURAL FLUID 1.6 g/dL
== END 2022-05-28 15:26 | disposition home health service (06) | DRG 183 ==
LOC: ER 14:46 → ERHOLD 05-26 02:08 → 2ND 05-26 02:33 → OBSVTOIN 05-27 18:35
PROVIDERS: ADMIT Internal Medicine; ATTEND Internal Medicine
PROC: 30233N1 Transfusion of Nonautologous Red Blood Cells into Peripheral Vein, Percutaneous Approach (ICD-10-PCS; 2022-05-26)
PROC: 0W993ZX Drainage of Right Pleural Cavity, Percutaneous Approach, Diagnostic (ICD-10-PCS; principal; 2022-05-27)
PROC: 5A1D70Z Performance of Urinary Filtration, Intermittent, Less than 6 Hours Per Day (ICD-10-PCS; 2022-05-28)
DX: S22.41XA Multiple fractures of ribs, right side, initial encounter for closed fracture (principal); N18.6 End stage renal disease; E44.0 Moderate protein-calorie malnutrition; I13.2 Hypertensive heart and chronic kidney disease with heart failure and with stage 5 chronic kidney disease, or end stage renal disease; J84.9 Interstitial pulmonary disease, unspecified; I50.32 Chronic diastolic (congestive) heart failure; J90 Pleural effusion, not elsewhere classified; D63.1 Anemia in chronic kidney disease; D63.8 Anemia in other chronic diseases classified elsewhere; E11.22 Type 2 diabetes mellitus with diabetic chronic kidney disease; Z79.4 Long term (current) use of insulin; J44.9 Chronic obstructive pulmonary disease, unspecified; E11.51 Type 2 diabetes mellitus with diabetic peripheral angiopathy without gangrene; E11.65 Type 2 diabetes mellitus with hyperglycemia; E78.5 Hyperlipidemia, unspecified; Z20.822 Contact with and (suspected) exposure to COVID-19; N48.1 Balanitis
CPT/HCPCS: 32555; 36415; 70450; 71045; 71250; 71260; 74177; 80048; 80053; 82042; 82945; 82947; 83615; 84157; 85025; 85610; 85730; 86850; 86900; 86901; 87070; 87811; 88108; 88305; 89050; 90935; 99284; G0378; J1644; J1815; J2250; J7050; P9016; U0003

== ENCOUNTER 2022-06-14 14:32 | Inpatient (IN) | payer OTHER, BC ==
--- OUTSIDE RECORDS SUMMARY | 2022-06-14 14:38 | XMS REPORT | Continuity of Care Document ---
:1945 Author Organization [facility] t Address [address] [place] [address] Care Team Providers Name Role Phone Naveed Fortune Attending Clinician Unavailable [id number] Attending Clinician Unavailable CAREY LONG Attending Clinician Unavailable CAMELIA MANCILLA Attending Clinician Unavailable RONNIE WHITNEY Attending Clinician Unavailable MONSE VELAZQUEZ Attending Clinician Unavailable CHILANGO ARMSTRONG NATASHA Attending Clinician Unavailable [id number] Admitting Clinician Unavailable CAMELIA MANCILLA Admitting Clinician Unavailable MONSE VELAZQUEZ Admitting Clinician Unavailable CHILANGO ARMSTRONG NATASHA Admitting Clinician Unavailable Payers Payer Name Policy Type Policy Number Effective Date Expiration Date S kristin MEDICARE PART A [id number] 2011 AND B 00:00:00 [employer] Blue 6 [id number] 2014 [facility] 00:00:00 - [facility] [id number] BCTX BCTI [id number] MEDICARE MB [id number] 2011 [facility] NOVITAS 00:00:00 - [facility] MEDICARE MB [id number] 2011 [facility] NOVITAS 00:00:00 - [facility] MEDICARE MB [id number] 2011 [facility] NOVITAS 00:00:00 - [facility] Problems Condition Condition Condition Status Onset Resolution Last Treating Co mments Source Name Details Category Date Date Treatment Clinician Date [id number] Other Problem Common obesity [facility] due to - [facility] excess [facility] [id number] Metabolic Problem Com mon syndrome [facility] - [facility] [id number] Body mass Problem Com mon index Spirit [BMI] - [facility] 30.0-30.9, [facility] [id number] Frailty Problem Commo n syndrome [facility] in - [facility] geriatric [facility] 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 - [facility] , single major St episode depressive [facility] prior episode 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 [id number] Mixed Problem Common hyperlipid Spirit emia - [facility] [id number] Noncomplia Problem Co mmon nce of Spirit patient - [facility] with [facility] Chronic +5th digit Problem Comm on atrial eff Spirit fibrillati 02/28/19*Ch - CHI on ronic St (disorder) atrial [facility] fibrillati [facility] [place] [id number] 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 - [facility] with [facility] Chronic Chronic Problem Common obstructiv obstructiv Sp jerome e lung e - CHI disease pulmonary [facility] unspecifie Medica l d COPD Center type [id number] Heart Problem Common failure, Spirit congestive - [facility] , etiology [facility] [id number] Constipati Problem Com mon on, Spirit unspecifie - CHI d constipati [facility] [place] [id number] Memory Problem Common impairment Spirit of gradual - CHI onset [facility] [id number] HTN, goal Problem Comm on below Spirit 130/80 - [facility] [id number] Anemia of Problem Com mon chronic [facility] disease - [facility]I [facility] [id number] skilled nursing Problem Com mon (current) [facility] use of - [facility]I insulin [facility] [id number] Benign Problem Common prostatic Spirit hyperplasi - [facility] a without [facility] urinary Medical tract Center symptoms Hypertroph Obstructiv Problem C ommon ic e Spirit 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 [facility] Hypertensi Hypertensi Problem C ommon ve heart [...] gabapent Active Unknown Commo n in in [facility] codeine codeine Active Unknown Common [facility] Social History Social Habit Start Date Stop Date Quantity Comments Source History of Tobacco Use Co mmon [facility] Sex Assigned At Com mon [facility] Smoking Status Start Date Stop Date Source Former Smoker 2022-05-12 00:00:00 2022-05-12 00:00:00 Common S pirit [facility] Medications Ordered Filled Start Stop Current Ordering Indication Dosage Frequency Signature Comments Components Source Medication Medication Date Date Medication? Clinician (SIG) Name Name Rishabh Braymahendra No Lantus SoloStar SoloStar 01-01 SoloStar 100 [...] Fortune [facility] 00:00: - [facility]I 00 [facility] BD BD 2018- Yes Naveed 1 needle Common Ultra-Fine Ultra-Fine 0-09 Fortune with Sp jerome Christina Pen Christina Pen 00:00: Basaglar - [facility] [place] 00 [facility] BD BD 2018-05 No QD BD Ultra-Fine Ultra-Fine 0-09 Ultra-Fine Christina Pen Christina Pen 00:00: Christina Pen [place] 4mm [place] 4mm 00 [place] x 32Gm x 32Gm 4mm x 32Gm BD BD 2018- No QD BD Ultra-Fine Ultra-Fine 0-09 Ultra-Fine Christina Pen Christina Pen 00:00: Christina Pen [place] 4mm [place] 4mm 00 [place] x 32Gm x 32Gm 4mm x 32Gm BD BD 2018- No QD BD Ultra-Fine Ultra-Fine 0-09 Ultra-Fine Christina Pen Christina Pen 00:00: Christina Pen [place] 4mm [place] 4mm 00 [place] x 32Gm x 32Gm 4mm x 32Gm BD BD 2018-05 No QD BD Ultra-Fine Ultra-Fine 0-09 Ultra-Fine Christina Pen Christina Pen 00:00: Christina Pen [place] 4mm [place] 4mm 00 [place] x 32Gm x 32Gm 4mm x 32Gm [facility] 2018-05 No QD BD Ultra-Fine Ultra-Fine 0-09 Ultra-Fine Christina Pen Christina Pen 00:00: Christina Pen [place] 4mm [place] 4mm 00 [place] x 32Gm x 32Gm 4mm x 32Gm [facility] 2018- No QD BD Ultra-Fine Ultra-Fine 0-09 Ultra-Fine Christina Pen Christina Pen 00:00: Christina Pen [place] 4mm [place] 4mm 00 [place] x 32Gm x 32Gm 4mm x 32Gm [facility] 2018- No QD BD Ultra-Fine Ultra-Fine 0-09 Ultra-Fine Christina Pen Christina Pen 00:00: Christina Pen [place] 4mm [place] 4mm 00 [place] x 32Gm x 32Gm 4mm x 32Gm [facility] 2018- No QD BD Ultra-Fine Ultra-Fine 0-09 Ultra-Fine Christina Pen Christina Pen 00:00: Christina Pen [place] 4mm [place] 4mm 00 [place] x 32Gm x 32Gm 4mm x 32Gm [facility] 2018-05 No QD BD Ultra-Fine Ultra-Fine 0-09 Ultra-Fine Christina Pen Christina Pen 00:00: Christina Pen [place] 4mm [place] 4mm 00 [place] x 32Gm x 32Gm 4mm x 32Gm [facility] 2018-05 No QD BD Ultra-Fine Ultra-Fine 0-09 Ultra-Fine Christina Pen Christina Pen 00:00: Christina Pen [place] 4mm [place] 4mm 00 [place] x 32Gm x 32Gm 4mm x 32Gm [facility] 2018- No QD BD Ultra-Fine Ultra-Fine 0-09 Ultra-Fine Christina Pen Christina Pen 00:00: Christina Pen [place] 4mm [place] 4mm 00 [place] x 32Gm x 32Gm 4mm x 32Gm [facility] 2018- No QD BD Ultra-Fine Ultra-Fine 0-09 Ultra-Fine Christina Pen Christina Pen 00:00: Christina Pen [place] 4mm [place] 4mm 00 [place] x 32Gm x 32Gm 4mm x 32Gm [facility] 2018- No QD BD Ultra-Fine Ultra-Fine 0-09 Ultra-Fine Christina Pen Christina Pen 00:00: Christina Pen [place] 4mm [place] 4mm 00 [place] x 32Gm x 32Gm 4mm x 32Gm [facility] 2018- No QD BD Ultra-Fine Ultra-Fine 0-09 Ultra-Fine Christina Pen Christina Pen 00:00: Christina Pen [place] 4mm [place] 4mm 00 [place] x 32Gm x 32Gm 4mm x 32Gm [facility] 2018-05 No QD BD Ultra-Fine Ultra-Fine 0-09 Ultra-Fine Christina Pen Christina Pen 00:00: Christina Pen [place] 4mm [place] 4mm 00 [place] x 32Gm x 32Gm 4mm x 32Gm [facility] 2018-05 No QD BD Ultra-Fine Ultra-Fine 0-09 Ultra-Fine Christina Pen Christina Pen 00:00: Christina Pen [place] 4mm [place] 4mm 00 [place] x 32Gm x 32Gm 4mm x 32Gm [facility] 2018-05 No QD BD Ultra-Fine Ultra-Fine 0-09 Ultra-Fine Christina Pen Christina Pen 00:00: Christina Pen [place] 4mm [place] 4mm 00 [place] x 32Gm x 32Gm 4mm x 32Gm [facility] 2018-05 No QD BD Ultra-Fine Ultra-Fine 0-09 Ultra-Fine Christina Pen Christina Pen 00:00: Christina Pen [place] 4mm [place] 4mm 00 [place] x 32Gm x 32Gm 4mm x 32Gm [facility] 2018-05 No QD BD Ultra-Fine Ultra-Fine 0-09 Ultra-Fine Christina Pen Christina Pen 00:00: Christina Pen [place] 4mm [place] 4mm 00 [place] x 32Gm x 32Gm 4mm x 32Gm [facility] 2018-05 No QD BD Ultra-Fine Ultra-Fine 0-09 Ultra-Fine Christina Pen Christina Pen 00:00: Christina Pen [place] 4mm [place] 4mm 00 [place] x 32Gm x 32Gm 4mm x 32Gm [facility] 2018-05 No QD BD Ultra-Fine Ultra-Fine 0-09 Ultra-Fine Christina Pen Christina Pen 00:00: Christina Pen [place] 4mm [place] 4mm 00 [place] x 32Gm x 32Gm 4mm x 32Gm Tums E-X Tums E-X Yes Naveed 1 tablet C ommon 750 750 Fortune [facility] Basaglar Basaglar Yes Naveed 52 Units C ommon KwikPen KwikPen [facility] PreserVisio PreserVisio Yes Naveed as Common n AREDS n AREDS Fortune directed Spir it [facility] Citalopram Citalopram Yes Naveed 1 tablet Common Hydrobromid Hydrobromid [facility] e e [facility] Stool Stool Yes Naveed not Common Softener Softener Fortune defined Spi rit [facility] Gentle Gentle Yes Naveed 1 tablet Commo n Laxative Laxative Fortune as needed S pirit [facility] Atorvastati Atorvastati Yes Naveed 1 tablet Common n Calcium n Calcium Fortune Spir [facility] Contour Contour Yes Naveed USE 3 Common Test Test Fortune TIMES A [facility] Eliquis 2.5 Eliquis 2.5 Yes Naveed 1 tablet Common mg mg Fortune [facility] Multivitami Multivitami Yes Naveed as Common n Adult n Adult Fortune directed [facility] Carvedilol Carvedilol Yes Naveed TAKE 1 Common Fortune TABLET BY Spirit MOUTH - CHI TWICE A DAY ON NON [facility] DIALYSIS Medical DAYS [place] Atorvastati Atorvastati Yes Naveed TAKE 1 Common n Calcium n Calcium Fortune TABLET BY [facility] MOUTH - CHI EVERY DAY [facility] GlipiZIDE GlipiZIDE Yes Naveed 1 tablet Common Fortune [facility] Basaglar Basaglar Yes Naveed 50 Units C ommon KwikPen KwikPen Fortune [facility] Advair HFA Advair HFA No 2{puffs BID [...] Dexcom G6 Dexcom G6 No Dexcom G6 Gas Meter Prover - Gas Meter Prover - Gas Meter Prover - Carvedilol Carvedilol No Carvedilol 12.5 MG [...] Dexcom G6 Dexcom G6 No Dexcom G6 Gas Meter Prover - Gas Meter Prover - Gas Meter Prover - glipiZIDE 5 glipiZIDE 5 No 1{table [...] Dexcom G6 Dexcom G6 No Dexcom G6 Gas Meter Prover - Gas Meter Prover - Gas Meter Prover - Ipratropium Ipratropium No Ipratropiu -Albuterol -Albuterol [...] Dexcom G6 Dexcom G6 No Dexcom G6 Gas Meter Prover - Gas Meter Prover - Gas Meter Prover - Gentle Gentle No 1{table QD Gentle [...] Dexcom G6 Dexcom G6 No Dexcom G6 Gas Meter Prover - Gas Meter Prover - Gas Meter Prover - PreserVisio PreserVisio No PreserVisi n AREDS [...] Dexcom G6 Dexcom G6 No Dexcom G6 Gas Meter Prover - Gas Meter Prover - Gas Meter Prover - Advair HFA Advair HFA No 2{puffs [...] Dexcom G6 Dexcom G6 No Dexcom G6 Gas Meter Prover - Gas Meter Prover - Gas Meter Prover - Advair HFA Advair HFA No 2{puffs [...] Dexcom G6 Dexcom G6 No Dexcom G6 Gas Meter Prover - Gas Meter Prover - Gas Meter Prover - Advair HFA Advair HFA No 2{puffs [...] Dexcom G6 Dexcom G6 No Dexcom G6 Gas Meter Prover - Gas Meter Prover - Gas Meter Prover - Atorvastati Atorvastati No 1{table QD Atorvastat [...] Dexcom G6 Dexcom G6 No Dexcom G6 Gas Meter Prover - Gas Meter Prover - Gas Meter Prover - Atorvastati Atorvastati No Atorvastat n Calcium [...] Dexcom G6 Dexcom G6 No Dexcom G6 Gas Meter Prover - Gas Meter Prover - Gas Meter Prover - Atorvastati Atorvastati No Atorvastat n Calcium [...] Advair HFA No 2{puffs BID Advair HFA 230- 230- } 230-21 MCG/ACT MCG/ACT MCG/ACT Citalopram Citalopram [...] MG de 20 MG Atorvastati Atorvastati No 1{table QD Atorvastat n Calcium n Calcium t} in Calcium 40 MG 40 MG 40 MG Gentle Gentle No 1{table QD Gentle Laxative 5 Laxative 5 t_as_ne Laxative 5 MG MG eded} MG Advair HFA Advair HFA No 2{puffs BID Advair HFA 230-21 230-21 } 230-21 MCG/ACT MCG/ACT MCG/ACT Citalopram Citalopram No 1{table QD Citalopram Hydrobromid Hydrobromid t} Hydrobromi e 20 MG e 20 MG de 20 MG Citalopram Citalopram No Citalopram Hydrobromid Hydrobromid Hydrobromi e 20 MG e 20 MG de 20 MG Tums E-X Tums E-X No 1{table TID Tums E-X 750 750 MG 750 750 MG t} 750 750 MG Atorvastati Atorvastati No Atorvastat n Calcium n Calcium in Calcium 40 MG 40 MG 40 MG Carvedilol Carvedilol No Carvedilol 12.5 MG 12.5 MG 12.5 MG Multivitami Multivitami No Multivitam n Adult - n Adult - in Adult - Pantoprazol Pantoprazol No Pantoprazo e Sodium e Sodium le Sodium Contour Contour No Contour Test - Test - Test - Stool Stool No Stool Softener Softener Softener Aspirin Aspirin No Aspirin BD Pen BD Pen No BD Pen Needle Christina Needle Christina Needle 2nd Gen 32G 2nd Gen 32G Christina 2nd X 4 MM X 4 MM Gen 32G X 4 MM PreserVisio PreserVisio No PreserVisi n AREDS - n AREDS - on AREDS - Basaglar Basaglar No Basaglar KwikPen 100 KwikPen 100 KwikPen UNIT/ML UNIT/ML 100 UNIT/ML Ipratropium Ipratropium No Ipratropiu -Albuterol -Albuterol m-Albutero 0.5-2.5 (3) 0.5-2.5 (3) l 0.5-2.5 MG/3ML MG/3ML (3) MG/3ML Gentle Gentle No 1{table QD Gentle Laxative 5 Laxative 5 t_as_ne Laxative 5 MG MG eded} MG Ipratropium Ipratropium No Ipratropiu -Albuterol -Albuterol m-Albutero 0.5-2.5 (3) 0.5-2.5 (3) l 0.5-2.5 MG/3ML MG/3ML (3) MG/3ML Advair HFA Advair HFA No 2{puffs BID Advair HFA 230-21 230-21 } 230-21 MCG/ACT MCG/ACT MCG/ACT Basaglar Basaglar No Basaglar KwikPen 100 KwikPen 100 KwikPen UNIT/ML UNIT/ML 100 UNIT/ML Citalopram Citalopram No Citalopram Hydrobromid Hydrobromid Hydrobromi e 20 MG e 20 MG de 20 MG Atorvastati Atorvastati No Atorvastat n Calcium n Calcium in Calcium 40 MG 40 MG 40 MG Citalopram Citalopram No 1{table QD Citalopram Hydrobromid Hydrobromid t} Hydrobromi e 20 MG e 20 MG de 20 MG Multivitami Multivitami No Multivitam n Adult - n Adult - in Adult - PreserVisio PreserVisio No PreserVisi n AREDS - n AREDS - on AREDS - Aspirin Aspirin No Aspirin Carvedilol Carvedilol No Carvedilol 12.5 MG 12.5 MG 12.5 MG BD Pen BD Pen No BD Pen Needle Christina Needle Christina Needle 2nd Gen 32G 2nd Gen 32G Christina 2nd X 4 MM X 4 MM Gen 32G X 4 MM Contour Contour No Contour Test - Test - Test - Pantoprazol Pantoprazol No Pantoprazo e Sodium e Sodium le Sodium Atorvastati Atorvastati No 1{table QD Atorvastat n Calcium n Calcium t} in Calcium 40 MG 40 MG 40 MG Tums E-X Tums E-X No 1{table TID Tums E-X 750 750 MG 750 750 MG t} 750 750 MG Stool Stool No Stool Softener Softener Softener Aspirin Aspirin No Aspirin Contour Contour No [...] FluAD 2021-03-30 Completed [facility] 13:13:00 - [facility] FluAD FluAD 2021-03-30 Completed [facility] 13:13:00 - [facility] FluAD FluAD 2021-03-30 Completed [facility] 13:13:00 - [facility] FluAD FluAD 2021-03-30 Completed [facility] 13:13:00 - [facility] FluAD FluAD 2021-03-30 Completed [facility] 13:13:00 - [facility] FluAD FluAD 2021-03-30 Completed [facility] 13:13:00 - [facility] FluAD FluAD 2021-03-30 Completed [facility] 13:13:00 - [facility] FluAD FluAD 2021-03-30 Completed [facility] 13:13:00 - [facility] FluAD FluAD 2021-03-30 Completed [facility] 13:13:00 - [facility] FluAD FluAD 2021-03-30 Completed [facility] 13:13:00 - [facility] FluAD FluAD 2021-03-30 Completed [facility] 13:13:00 - [facility] FluAD FluAD 2021-03-30 Completed [facility] 13:13:00 - [facility] FluAD FluAD 2021-03-30 Completed [facility] 13:13:00 - [facility] FluAD FluAD 2021-03-30 Completed [facility] 13:13:00 - [facility] FluAD FluAD 2021-03-30 Completed [facility] 13:13:00 - [facility] FluAD FluAD 2021-03-30 Completed [facility] 13:13:00 - [facility] FluAD FluAD 2021-03-30 Completed [facility] 13:13:00 - [facility] FluAD FluAD 2021-03-30 Completed [facility] 13:13:00 - [facility] FluAD FluAD 2021-03-30 Completed [facility] 13:13:00 - [facility] COVID-19 Vaccine COVID-19 Vaccine 2020-08-19 Completed Co [facility] (Andrea) (Andrea) 09:17:00 - [facility] COVID-19 Vaccine COVID-19 Vaccine 2020-08-19 Completed Co mmon [facility] (Andrea) (Andrea) 09:17:00 - [facility] COVID-19 Vaccine COVID-19 Vaccine 2020-08-19 Completed Co mmon [facility] (Andrea) (Andrea) 09:17:00 - [facility] COVID-19 Vaccine COVID-19 Vaccine 2020-08-19 Completed Co mmon [facility] (Andrea) (Andrea) 09:17:00 - [facility] COVID-19 Vaccine COVID-19 Vaccine 2020-08-19 Completed Co mmon [facility] (Andrea) (Andrea) 09:17:00 - [facility] COVID-19 Vaccine COVID-19 Vaccine 2020-08-19 Completed Co mmon [facility] (Andrea) (Andrea) 09:17:00 - [facility] COVID-19 Vaccine COVID-19 Vaccine 2020-08-19 Completed Co mmon [facility] (Andrea) (Andrea) 09:17:00 - [facility] COVID-19 Vaccine COVID-19 Vaccine 2020-08-19 Completed Co mmon [facility] (Andrea) (Andrea) 09:17:00 - [facility] COVID-19 Vaccine COVID-19 Vaccine 2020-08-19 Completed Co [facility] (Andrea) (Andrea) 09:17:00 [facility] COVID-19 Vaccine COVID-19 Vaccine 2020-08-19 Completed Co m[facility] (Andrea) (Andrea) 09:17:00 [facility] COVID-19 Vaccine COVID-19 Vaccine 2020-08-19 Completed Co mmon [facility] (Andrea) (Andrea) 09:17:00 - [facility] COVID-19 Vaccine COVID-19 Vaccine 2020-08-19 Completed Co mmon [facility] (Andrea) (Andrea) 09:17:00 [facility] COVID-19 Vaccine COVID-19 Vaccine 2020-08-19 Completed Co mmon [facility] (Andrea) (Andrea) 09:17:00 [facility] COVID-19 Vaccine COVID-19 Vaccine 2020-08-19 Completed Co mmon [facility] (Andrea) (Andrea) 09:17:00 [facility] COVID-19 Vaccine COVID-19 Vaccine 2020-08-19 Completed Co mmon [facility] (Andrea) (Andrea) 09:17:00 [facility] COVID-19 Vaccine COVID-19 Vaccine 2020-08-19 Completed Co mmon [facility] (Andrea) (Andrea) 09:17:00 [facility] COVID-19 Vaccine COVID-19 Vaccine 2020-08-19 Completed Co mmon [facility] (Andrea) (Andrea) 09:17:00 [facility] COVID-19 Vaccine COVID-19 Vaccine 2020-08-19 Completed Co mmon [facility] (Andrea) (Andrea) 09:17:00 [facility] COVID-19 Vaccine COVID-19 Vaccine 2020-08-19 Completed Co mmon [facility] (Andrea) (Andrea) 09:17:00 [facility] COVID-19 Vaccine COVID-19 Vaccine 2020-08-19 Completed Co mmon [facility] (Andrea) (Andrea) 09:17:00 [facility] COVID-19 Vaccine COVID-19 Vaccine 2020-08-19 Completed Co mmon [facility] (Andrea) (Andrea) 09:17:00 [facility] Vital Signs Vital Name Observation Time Observation Value Comments Source height 2022-02-17 15:00:00 70 [in_i] [facility] weight 2022-02-17 15:00:00 208 [lb_av] [facility] temperature 2022-02-17 15:00:00 98.1 [degF] [facility] bmi 2022-02-17 15:00:00 29.84 kg/m2 [facility] blood pressure 2022-02-17 15:00:00 121 mm[Hg] [facility] - systolic [facility] blood pressure 2022-02-17 15:00:00 61 mm[Hg] [facility] - diastolic [facility] height 2022-01-06 14:30:00 70 [in_i] [facility] weight 2022-01-06 14:30:00 208 [lb_av] [facility] bmi 2022-01-06 14:30:00 29.84 kg/m2 [facility] blood pressure 2022-01-06 14:30:00 137 mm[Hg] [facility] - systolic [facility] blood pressure 2022-01-06 14:30:00 79 mm[Hg] [facility] - diastolic [facility] height 2021-11-03 09:45:00 70 [in_i] [facility] weight 2021-11-03 09:45:00 210 [lb_av] [facility] bmi 2021-11-03 09:45:00 30.13 kg/m2 [facility] - [facility] blood pressure 2021-11-03 09:45:00 144 mm[Hg] [facility] - systolic [facility] blood pressure 2021-11-03 09:45:00 86 mm[Hg] [facility] - diastolic [facility] height 2021-07-28 14:10:00 70 [in_i] [facility] - [facility] weight 2021-07-28 14:10:00 211.8 [lb_av] Common [facility] temperature 2021-07-28 14:10:00 97.5 [degF] [facility]irit [facility] bmi 2021-07-28 14:10:00 30.39 kg/m2 [facility]irit [facility] oximetry 2021-07-28 14:10:00 93 % [facility] respiratory rate 2021-07-28 14:10:00 16 /min Comm on [facility] blood pressure 2021-07-28 14:10:00 134 mm[Hg] [facility] - systolic [facility] blood pressure 2021-07-28 14:10:00 63 mm[Hg] [facility] - diastolic [facility] height 2021-07-28 13:20:00 70 [in_i] [facility] weight 2021-07-28 13:20:00 211.8 [lb_av] Common [facility] - [facility] temperature 2021-07-28 13:20:00 97.5 [degF] Common S [facility]irit [facility] bmi 2021-07-28 13:20:00 30.39 kg/m2 Common S pirit [facility] oximetry 2021-07-28 13:20:00 93 % Common S [facility]irit [facility] respiratory rate 2021-07-28 13:20:00 16 /min Comm on [facility] blood pressure 2021-07-28 13:20:00 134 mm[Hg] [facility] - systolic [facility] blood pressure 2021-07-28 13:20:00 62 mm[Hg] Common [facility] - diastolic [facility] height 2021-04-28 13:10:00 70 [in_i] Common [facility] weight 2021-04-28 13:10:00 215.9 [lb_av] Common [facility] temperature 2021-04-28 13:10:00 97.3 [degF] Common [facility] bmi 2021-04-28 13:10:00 30.98 kg/m2 [facility] oximetry 2021-04-28 13:10:00 95 % [facility] respiratory rate 2021-04-28 13:10:00 17 /min Comm on [facility] blood pressure 2021-04-28 13:10:00 121 mm[Hg] Common [facility] - systolic [facility] blood pressure 2021-04-28 13:10:00 60 mm[Hg] Common [facility] - diastolic [facility] height 2021-03-12 09:30:00 70 [in_i] [facility] weight 2021-03-12 09:30:00 211.4 [lb_av] [facility] temperature 2021-03-12 09:30:00 97.7 [degF] [facility] bmi 2021-03-12 09:30:00 30.33 kg/m2 [facility] oximetry 2021-03-12 09:30:00 95 % Common [facility] respiratory rate 2021-03-12 09:30:00 16 /min Comm on [facility] blood pressure 2021-03-12 09:30:00 132 mm[Hg] Common [facility] - systolic [facility] blood pressure 2021-03-12 09:30:00 67 mm[Hg] Common [facility] diastolic [facility] Procedures Procedure Date / Time Performed Performing Clinician Lupe bowie [id number] 2021-10-18 00:00:00 [facility] Encounters Start End Encounter Admission Attending Care Care Encounter Source Date/Time Date/Time Type Type [facility] Department ID 2022-05-20 Outpatient Fortune, STLMLC STLMLC [id number] Common 08:24:01 Naveed [facility] 2022-05-15 Outpatient Fortune, STLMLC STLMLC [id number] Common 08:53:00 Naveed [id number] [facility] 2022-05-11 Outpatient [facility], STLMLC STLMLC [id number] Common 14:49:00 Naveed [id number] [facility] 2022-05-08 Outpatient [facility], STLMLC STLMLC [id number] Common 10:15:01 Naveed 66089 [facility] 2022-05-07 Outpatient [facility], STLMLC STLMLC [id number] Common 11:53:00 Naveed 12530 [facility] 2022-02-18 Outpatient [facility], STLMLC STLMLC [id number] Common 12:05:01 Naveed [id number] [facility] 2022-01-01 Outpatient [facility], STLMLC STLMLC [id number] Common 10:24:01 Naveed [facility] 2021-12-29 Outpatient [facility], STLMLC STLMLC [id number] Common 08:34:00 Naveed [facility] 2021-12-16 Outpatient [facility] [id number] [place] 14:42:[id number] [place] [address] 2021-11-19 Outpatient [facility], STLMLC STLMLC [id number] Common 08:42:01 Naveed [facility] 2021-11-03 Outpatient Fortune, STLMLC STLMLC [id number] Common 10:33:01 Naveed [facility] 2021-10-15 Outpatient 3 [id number] ENCPL REF [id number] [facility] 08:19:25 0518 [facility] itation [facility] 2021-10-14 Outpatient 3 [id number] ENCPL REF [id number] [facility] 11:59:03 0517 [facility] itation Lynsey d 2021-06-25 Outpatient Fortune, STLMLC STLMLC [id number] Common 14:22:06 Naveed 11710 [facility] 2021-06-25 Outpatient [place], STLMLC STLMLC [id number] Common 14:13:51 Naveed [id number] [facility] 2021-06-25 Outpatient [facility], STLMLC STLMLC [id number] Common 13:38:12 Naveed [id number] [facility] 2021-06-25 Outpatient Fortune, STLMLC STLMLC [id number] Common 12:43:29 Naveed [id number] [facility] 2021-06-25 Outpatient [facility], STLMLC STLMLC [id number] Common 12:42:27 Naveed 60472 [facility] 2021-06-25 Outpatient [facility], STLMLC STLMLC [id number] Common 12:31:12 Naveed 57941 [facility] 2021-06-25 Outpatient [facility], STLMLC STLMLC [id number] Common 12:31:03 Naveed [id number] [facility] 2021-06-25 Outpatient [facility], STLMLC STLMLC [id number] Common 12:30:21 Naveed 13558 [facility] 2021-06-25 Outpatient [facility], STLMLC STLMLC [id number] Common 11:00:43 Naveed [id number] [facility] 2022-06-08 2022-06-08 (TEL) STLMLC STLMLC [id number] Co mmon 00:00:00 00:00:00 [facility] 2022-05-06 2022-05-06 (TEL) STLMLC STLMLC [id number] Co mmon 00:00:00 00:00:00 [facility] 2022-04-03 2022-04-03 (TEL) STLMLC STLMLC [id number] Co mmon 00:00:00 00:00:00 [facility] 2022-02-17 2022-02-17 (TEL) STLMLC STLMLC [id number] Co mmon 00:00:00 00:00:00 [facility] 2022-02-17 2022-02-17 OFFICE STLMLC STLMLC [id number] Co mmon 00:00:00 00:00:00 VISIT [facility] PT - CHI LEVEL 4 [facility] 2022-01-06 2022-01-06 OFFICE STLMLC STLMLC [id number] Co mmon 00:00:00 00:00:00 VISIT [facility] PT - CHI LEVEL 4 [facility] 2022-01-02 2022-01-02 Emergency E LONG, MHBL MHBL [id number] MHBL 12:12:00 16:33:00 CAREY 2022-01-01 2022-01-01 (TEL) STLMLC STLMLC [id number] Co mmon 00:00:00 00:00:00 [facility] 2021-12-31 2021-12-31 (TEL) STLMLC STLMLC [id number] Co mmon 00:00:00 00:00:00 [facility] 2021-12-14 2021-12-16 Inpatient E LAURENT, MHBL MED [id number] MHBL 18:26:00 22:14:00 CAMELIA 2021-12-03 2021-12-04 Emergency E DEVONTE, MHBL MHBL [id number] MHBL 18:19:00 09:53:00 RONNIE 2021-12-01 2021-12-01 Outpatient COH COH PIJFJKR ZIB COH 00:00:00 00:00:00 [id number] 2021-11-25 2021-11-26 Outpatient E AJIBADALE, MHBL MED [id number] MHBL 10:37:00 19:12:00 MONSE 2021-11-24 2021-11-24 (TEL) STLMLC STLMLC [id number] Co mmon 00:00:00 00:00:00 [facility] 2021-10-16 2021-11-03 Inpatient 3 NATHANIEL, ENCPL GILDA [id number] [facility] 23:26:00 21:40:00 [facility] [place] 2021-11-03 2021-11-03 OFFICE STLMLC STLMLC [id number] Co mmon 00:00:00 00:00:00 VISIT [facility] LEVEL 4 [facility] 2021-10-17 2021-10-17 (TEL) STLMLC STLMLC [id number] Co mmon 00:00:00 00:00:00 [facility] 2021-08-12 2021-08-12 (TEL) STLMLC STLMLC [id number] Co mmon 00:00:00 00:00:00 [facility] 2021-07-28 2021-07-28 OFFICE STLMLC STLMLC [id number] Co mmon 00:00:00 00:00:00 VISIT [facility] ESTAB PT - CHI LEVEL 4 [facility] 2021-07-28 2021-07-28 SUB ANNUAL STLMLC STLMLC [id number] Common 00:00:00 00:00:00 MCR [facility] WELLNESS - CHI VISIT [facility] 2021-06-12 2021-06-12 (TEL) STLMLC STLMLC [id number] Co mmon 00:00:00 00:00:00 [facility] 2021-05-21 2021-05-21 (TEL) STLMLC STLMLC [id number] Co mmon 00:00:00 00:00:00 [facility] 2021-04-28 2021-04-28 OFFICE STLMLC STLMLC [id number] Co mmon 00:00:00 00:00:00 [facility]IT [facility] - CHI LEVEL 4 [facility] 2021-03-26 2021-03-26 (TEL) STLMLC STLMLC [id number] Co mmon 00:00:00 00:00:00 [facility] - CHI [facility] 2021-03-12 2021-03-12 OFFICE STLMLC STLMLC [id number] Co mmon 00:00:00 00:00:00 [facility] - CHI LEVEL 4 [facility] 2021-02-10 2021-02-10 Outpatient STLMLC STLMLC [id number] Common 00:00:00 00:00:00 [facility] 2021-01-31 2021-01-31 Outpatient STLMLC STLMLC [id number] Common 00:00:00 00:00:00 [facility] 2021-01-13 2021-01-13 Outpatient STLMLC STLMLC [id number] Common 00:00:00 00:00:00 [facility] 2021-01-08 2021-01-08 Outpatient STLMLC STLMLC [id number] Common 00:00:00 00:00:00 [facility] 2020-12-31 2020-12-31 Outpatient STLMLC STLMLC [id number] Common 00:00:00 00:00:00 [facility] 2020-12-11 2020-12-11 Outpatient STLMLC STLMLC [id number] Common 00:00:00 00:00:00 [facility] 2020-08-19 2020-08-19 Outpatient STLMLC STLMLC [id number] Common 00:00:00 00:00:00 [facility] 2020-07-19 2020-07-19 Outpatient STLMLC STLMLC [id number] Common 00:00:00 00:00:00 [facility] 2020-07-15 2020-07-15 Outpatient STLMLC STLMLC [id number] Common 00:00:00 00:00:00 [facility] 2020-06-14 2020-06-14 Outpatient STLMLC STLMLC [id number] Common 00:00:00 00:00:00 [facility] 2020-06-05 2020-06-05 Outpatient STLMLC STLMLC [id number] Common 00:00:00 00:00:00 [facility] 2020-04-23 2020-04-23 Outpatient STLMLC STLMLC [id number] Common 00:00:00 00:00:00 [facility] 2020-04-22 2020-04-22 Outpatient STLMLC STLMLC [id number] Common 00:00:00 00:00:00 [facility] 2020-04-17 2020-04-17 Outpatient STLMLC STLMLC [id number] Common 00:00:00 00:00:00 [facility] 2020-01-15 2020-01-15 [facility] [id number] Common 10:45:00 10:45:[address] [facility] 2019-10-16 2019-10-16 [facility] [id number] Common 13:00:00 13:00:[address] [facility] 2019-07-17 2019-07-17 [facility] [id number] Common 13:45:00 13:45:[address] [facility] 2019-06-14 2019-06-14 Out[facility] [id number] Common 11:45:00 11:45:[address] [facility] 2019-06-07 2019-06-07 [facility] [id number] Common 11:57:00 11:57:[address] [facility] 2019-05-17 2019-05-17 [facility] [id number] Common 11:30:00 11:30:[address] [facility] 2019-04-24 2019-04-24 [facility] [id number] Common 14:52:00 14:52:[address] [facility] 2019-04-19 2019-04-19 Out[facility] [id number] Common 14:45:00 14:45:[address] [facility] 2019-04-06 2019-04-06 Out[facility] [id number] Common 08:35:00 08:35:[address] [facility] 2019-04-04 2019-04-04 [facility] [id number] Common 08:34:00 08:34:[address] [facility] 2019-03-08 2019-03-08 Outpatient [facility] [id number] Common 10:57:00 10:57:[address] [facility] 2019-02-20 2019-02-20 Out[facility] [id number] Common 14:00:00 14:00:[address] [facility] Results Test Description Test Time Test Comments Results Result Comments Source HEMOGLOBIN A1C 2021-07-28 00:00:00 Test Item Value Reference Range Interpretation Comme nts A1C (test code = 4548-4) 8.8 HEMOGLOBIN [id number] 00:00:00 Test Item Value Reference Range Interpretation Comments A1C (test code = 4548-4) 8.3 HEMOGLOBIN [id number] 00:00:00 Test Item Value Reference Range Interpretation Comments A1C (test code = 4548-4) 10.3
[2022-06-14 15:50] LABS: Absolute Lymphocytes (CBC) 1.5 K/uL (0.7-4.9); Hematocrit 24.2 % (39.6-49.0); Lymphocytes % 18.5 % (15.3-44.8); MCV 102.3 fL (80-100); MPV 6.5 fL (7.6-11.3); Protime INR 1.45; RBC Red Blood Cell Count 2.36 M/uL (4.33-5.43)
--- NOTE | 2022-06-14 15:52 | RAD REPORT ---
EXAM DESCRIPTION: Tony Single View06/14/2022 3:24 pm CLINICAL HISTORY: Shortness of breath COMPARISON: May 27, 2022 FINDINGS: Small right pleural effusion Mild bilateral interstitial lung opacities are probably chronic. Heart remains enlarged
[2022-06-14 16:35] LABS: Anisocytosis 1+; Blood Morphology Comment NOTED (NOT SEEN); Platelet Estimate ADEQ; White Blood Cell Scan OK (OK)
[2022-06-14 16:44] LABS: Magnesium 1.9 mg/dL (1.6-2.4); Potassium 4.7 mmol/L (3.5-5.1)
[2022-06-14 16:46] LABS: Troponin High Sensitivity 141.4 pg/mL (<58.9)
[2022-06-14] MEDS ORDERED: BENZONATATE 100 MG CAP PO ONE (17:09)
--- NOTE | 2022-06-14 18:01 | EDPHYS ---
Physician Documentation [facility] Name: Guzman Mayers Age: 77 yrs Sex: Male : 1945 Arrival Date: 06/14/2022 Time: 14:34 Bed 16 Private MD: Tong [facility] ED Physician Anderson Mitchell HPI: 06/14 15:00 This 77 yrs old Male presents to ER via Ambulatory with complaints of Cough, cp Breathing Difficulty. 15:00 The patient or guardian reports cough, with productive sputum, that is white. cp 15:00 The patient has shortness of breath at rest. cp 15:00 Onset: The symptoms/episode began/occurred 3 day(s) ago. cp 15:00 Duration: The symptoms are continuous, and are steadily getting worse. Associated signs cp and symptoms: Pertinent positives: chest pain, productive cough, Pertinent negatives: diaphoresis, fever, hemoptysis, vomiting. Patient reports last dialysis was this past Wednesday. Historical: - Allergies: 14:47 Codeine; ll1 14:47 GABAPENTIN; ll1 - PMHx: 14:47 ADD/ADHD; CHF; CKD; COPD; Diabetes - IDDM; Dialysis; dialysis tues, thurs, sat, uses o2 ll1 when sleeping.; High Cholesterol; HTN; Hypertension; - Immunization history:: Client reports receiving the 2nd dose of the Covid vaccine. - Social history:: Smoking status: Patient/guardian denies using tobacco, the patient reports quitting approximately 60 years ago. ROS: 15:05 Constitutional: Negative for body aches, chills, fever, poor PO intake. cp 15:05 Eyes: Negative for injury, pain, redness, and discharge. cp 15:05 Cardiovascular: Positive for chest pain, Negative for palpitations. 15:05 Respiratory: Positive for shortness of breath, at rest. 15:05 Abdomen/GI: Negative for abdominal pain, vomiting, diarrhea, constipation, black/tarry cp stool, rectal bleeding. 15:05 Back: Negative for pain at rest, pain with movement. 15:05 Neuro: Negative for altered mental status, dizziness, headache, syncope, weakness. 15:05 All other systems are negative. Exam: 15:10 Constitutional: The patient appears in no acute distress, alert, awake, cp non-diaphoretic, non-toxic, well developed, well nourished, uncomfortable. 15:10 Head/Face: Normocephalic, atraumatic. cp 15:10 Eyes: Periorbital structures: appear normal, Conjunctiva: normal, no exudate, no injection, Sclera: no appreciated abnormality, Lids and lashes: appear normal, bilaterally. 15:10 ENT: External ear(s): are unremarkable, Nose: is normal, Mouth: Lips: moist, Oral mucosa: pink and intact, moist, Posterior pharynx: Airway: no evidence of obstruction, patent, swelling, is not appreciated, erythema, is not appreciated, exudate, is not appreciated. 15:10 Chest/axilla: Inspection: normal, Palpation: is normal, no crepitus, no tenderness. 15:10 Cardiovascular: Rate: normal, Rhythm: regular, Edema: ankle edema, that is mild, JVD: is not appreciated. 15:10 Respiratory: the patient does not display signs of respiratory distress, Respirations: labored breathing, is not present, shallow respirations, that is mild, Breath sounds: decreased breath sounds, that are moderate, throughout, stridor, is not appreciated, wheezing: is not appreciated. 15:10 Abdomen/GI: Inspection: abdomen appears normal, Bowel sounds: active, all quadrants, Palpation: abdomen is soft and non-tender, in all quadrants. 15:10 Skin: cellulitis, is not appreciated, no rash present. 15:10 Neuro: Orientation: to person, place \T\ time. Mentation: is normal. 15:27 ECG was reviewed by the Attending Physician. cp Vital Signs: 14:48 BP 120 / 57; Pulse 75; Resp 26; Temp 98.7; Pulse Ox 80% on R/A; Weight 74.84 kg; Height ll1 5 ft. 10 in. (177.80 cm); Pain 0/10; 14:50 Pulse Ox 100% on 4 lpm NC; ll1 16:01 BP 126 / 55; Pulse 74; Resp 20; Pulse Ox 100% on 4 lpm NC; db 17:00 BP 122 / 58; Pulse 70; Resp 20; Pulse Ox 100% on 4 lpm NC; db 18:00 BP 131 / 59; Pulse 76; Resp 18; Pulse Ox 95% on 4 lpm NC; db 19:46 BP 134 / 78; Pulse 69; Resp 15 S; Pulse Ox 99% on 2 lpm NC; jb4 14:48 Body Mass Index 23.67 (74.84 kg, 177.80 cm) ll1 Ray Coma Score: 17:00 Eye Response: spontaneous(4). Verbal Response: oriented(5). Motor Response: obeys db commands(6). Total: 15. MDM: 14:46 Patient medically screened. cp 17:15 Data reviewed: vital signs, nurses notes, lab test result(s), EKG, radiologic studies, cp plain films. 17:55 Consideration of Admission/Observation Patient was admitted/placed on observation. cp Independent interpretation of the following test(s) in the Emergency Department EKG: See my EKG interpretation above. Test considered but Not performed: Other Details CT chest. Historians other than the Patient: Daughter/Son: son provides history. Care significantly affected by the following chronic conditions: Diabetes, Hypertension, Congestive Heart Failure, Chronic Kidney Disease. Counseling: I had a detailed discussion with the patient and/or guardian regarding: the historical points, exam findings, and any diagnostic results supporting the discharge/admit diagnosis, lab results, radiology results, the need for further work-up and treatment in the hospital. 17:55 Management of patient was discussed with the following: Hospitalist: Elma Bello NP. 06/14 14:53 Order name: Basic Metabolic Panel; Complete Time: 16:57 06/14 16:57 Interpretation: Normal except: NA 133; CL 96; GLUC 234; BUN 40; CRE 5.42; GFR 10. 06/14 14:53 Order name: CBC with Diff; Complete Time: 16:41 06/14 16:20 Interpretation: Normal except: RBC 2.36; HGB 8.5; HCT 24.2; MCV 102.3; MCH 36.0; RDW cp 24.0; MPV 6.5. 06/14 14:53 Order name: Magnesium; Complete Time: 16:57 06/14 16:57 Interpretation: MG 1.9; Reviewed. 06/14 14:53 Order name: NT PRO-BNP; Complete Time: 16:57 06/14 16:57 Interpretation: Abnormal: NT PRO-BNP 715299. 06/14 14:53 Order name: PT-INR; Complete Time: 15:53 06/14 15:53 Interpretation: Reviewed. 06/14 14:53 Order name: Troponin HS; Complete Time: 16:57 06/14 16:57 Interpretation: Troponin HS 141.4; Reviewed. 06/14 14:53 Order name: XRAY Chest (1 view); Complete Time: 15:53 06/14 15:53 Interpretation: Report reviewed. 06/14 14:53 Order name: EKG; Complete Time: 14:53 06/14 14:53 Order name: Cardiac monitoring; Complete Time: 16:05 06/14 14:53 Order name: EKG - Nurse/Tech; Complete Time: 16:05 06/14 16:21 Order name: COVID-19/FLU A+B; Complete Time: 18:07 06/14 16:35 Order name: CBC Smear Scan; Complete Time: 16:41 EDIN 06/14 14:53 Order name: IV Saline Lock; Complete Time: 16:05 06/14 14:53 Order name: Labs collected and sent; Complete Time: 16:05 06/14 14:53 Order name: O2 Per Protocol; Complete Time: 16:05 06/14 14:53 Order name: O2 Sat Monitoring; Complete Time: 16:05 EC:27 Rate is 76 beats/min. Rhythm is regular. QRS interval is prolonged at 168 msec. QT cp interval is prolonged at 458 msec. T waves are Inverted in lead aVR. Interpreted by me. Reviewed by me. Administered Medications: 17:12 Drug: Tessalon Perle (benzonatate) 200 mg Route: PO; db 18:16 Follow up: Response: No adverse reaction db 18:25 Drug: Aspirin Chewable Tablet 162 mg Route: PO; db Disposition Summary: 06/14/22 18:00 Hospitalization Ordered Hospitalization Status: Observation cp Provider: Elisa Bello cp Location: Telemetry/MedSurg (observation) cp Condition: Stable cp Problem: an acute exacerbation cp Symptoms: have improved cp Bed/Room Type: Standard Room Assignment: 228(06/14/22 19:23) dw Diagnosis - Unspecified combined systolic (congestive) and diastolic (congestive) heart failure cp - Orthopnea cp - Chest pain, unspecified cp Forms: - Medication Reconciliation Form cp - SBAR form cp Signatures: Dispatcher [employer] Nimo Del Valle RN RN Anderson Cardenas PA PA cp Lewis, Lynsay, RN RN ll1 Sandee Katz RN RN Elisa Rios PA-C PA-C sb4 Corrections: (The following items were deleted from the chart) 19:23 18:00 trey kirkland
--- NOTE | 2022-06-14 18:01 | ER ---
Nurse's Notes [facility] Name: Guzman Mayers Age: 77 yrs Sex: Male : 1945 Arrival Date: 06/14/2022 Time: 14:34 Bed 16 Private MD: Naveed Fortune Diagnosis: Unspecified combined systolic (congestive) and diastolic (congestive) heart failure;Orthopnea;Chest pain, unspecified Presentation: 06/14 14:48 Chief complaint: Patient states: Cough, SOB, unable to sleep well for 3 days. No known ll1 fever. Wears oxygen all the time at homer 2.5L. Coronavirus screen: Vaccine status: Patient reports receiving the 2nd dose of the covid vaccine. Client denies travel out of the [place] in the last 14 days. congestion, cough unrelated to allergies, difficulty breathing, fatigue, shortness of breath, Client presents with at least one sign or symptom that may indicate coronavirus-19. Standard/surgical mask placed on the client. Ebola Screen: Patient denies travel to an Ebola-affected area in the 21 days before illness onset. Initial Sepsis Screen: Does the patient meet any 2 criteria? RR > 20 per min. No. Patient's initial sepsis screen is negative. Does the patient have a suspected source of infection? Yes: Productive cough/pneumonia. Risk Assessment: Do you want to hurt yourself or someone else? Patient reports no desire to harm self or others. Onset of symptoms was June 12, 2022. 14:48 Method Of Arrival: Ambulatory ll1 14:48 Acuity: CHICHO 2 ll1 Historical: - Allergies: 14:47 Codeine; ll1 14:47 GABAPENTIN; ll1 - PMHx: 14:47 ADD/ADHD; CHF; CKD; COPD; Diabetes - IDDM; Dialysis; dialysis tues, thurs, sat, uses o2 ll1 when sleeping.; High Cholesterol; HTN; Hypertension; - Immunization history:: Client reports receiving the 2nd dose of the Covid vaccine. - Social history:: Smoking status: Patient/guardian denies using tobacco, the patient reports quitting approximately 60 years ago. Screenin:08 [facility] ED Fall Risk Assessment (Adult) History of falling in the last 3 months, db including since admission No falls in past 3 months (0 pts) Confusion or Disorientation No (0 pts) Intoxicated or Sedated No (0 pts) Impaired Gait Yes (1 pt) Mobility Assist Device Used Yes (1 pt) Altered Elimination Yes (1 pt) Score/Fall Risk Level 3 or more points = High Risk Oriented to surroundings, Maintained a safe environment, Educated pt \T\ family on fall prevention, incl call for assistance when getting out of bed. Abuse screen: Denies threats or abuse. Denies injuries from another. Nutritional screening: No deficits noted. Tuberculosis screening: No symptoms or risk factors identified. Assessment: 15:00 Reassessment: Patient appears in no apparent distress at this time. Patient and/or db family updated on plan of care and expected duration. Pain level reassessed. Patient is alert, oriented x 3, equal unlabored respirations, skin warm/dry/pink. 16:05 Reassessment: Patient appears in no apparent distress at this time. Patient and/or db family updated on plan of care and expected duration. Pain level reassessed. Patient is alert, oriented x 3, equal unlabored respirations, skin warm/dry/pink. COUGH AND SOB LAST DIALYSIS ON WEDNESDAY Patient denies pain at this time. Reassessment: DIALYSIS FISTULA TO LEFT ARM. Pain: Denies pain. Neuro: Level of Consciousness is awake, alert, obeys commands, Oriented to person, place, time, situation, Moves all extremities. Speech is normal. Cardiovascular: Rhythm is sinus rhythm with unifocal PVCs. Respiratory: Reports shortness of breath at rest cough that is non-productive, Airway is patent Respiratory effort is even, unlabored, Respiratory pattern is regular, Breath sounds are clear bilaterally. GI: No signs and/or symptoms were reported involving the gastrointestinal system. Abdomen is round distended. : No deficits noted. No signs and/or symptoms were reported regarding the genitourinary system. EENT: No deficits noted. No signs and/or symptoms were reported regarding the EENT system. 16:19 Reassessment: Patient appears in no apparent distress at this time. No changes from db previously documented assessment. Patient and/or family updated on plan of care and expected duration. Pain level reassessed. Patient is alert, oriented x 3, equal unlabored respirations, skin warm/dry/pink. PATIENT SLEEPING. FAMILY AT BEDSIDE. 17:00 Reassessment: Patient appears in no apparent distress at this time. Patient and/or db family updated on plan of care and expected duration. Pain level reassessed. Patient is alert, oriented x 3, equal unlabored respirations, skin warm/dry/pink. FAMILY AT BEDSIDE. 18:16 Reassessment: Patient appears in no apparent distress at this time. No changes from db previously documented assessment. Patient and/or family updated on plan of care and expected duration. Pain level reassessed. Patient is alert, oriented x 3, equal unlabored respirations, skin warm/dry/pink. Respiratory: Reports cough that is. 19:46 Reassessment: Patient appears in no apparent distress at this time. Patient and/or jb4 family updated on plan of care and expected duration. Pain level reassessed. Patient is alert, oriented x 3, equal unlabored respirations, skin warm/dry/pink. Respiratory: Airway is patent Respiratory effort is even, unlabored, Respiratory pattern is regular, symmetrical, Denies shortness of breath at rest. Vital Signs: 14:48 BP 120 / 57; Pulse 75; Resp 26; Temp 98.7; Pulse Ox 80% on R/A; Weight 74.84 kg; Height ll1 5 ft. 10 in. (177.80 cm); Pain 0/10; 14:50 Pulse Ox 100% on 4 lpm NC; ll1 16:01 BP 126 / 55; Pulse 74; Resp 20; Pulse Ox 100% on 4 lpm NC; db 17:00 BP 122 / 58; Pulse 70; Resp 20; Pulse Ox 100% on 4 lpm NC; db 18:00 BP 131 / 59; Pulse 76; Resp 18; Pulse Ox 95% on 4 lpm NC; db 19:46 BP 134 / 78; Pulse 69; Resp 15 S; Pulse Ox 99% on 2 lpm NC; jb4 14:48 Body Mass Index 23.67 (74.84 kg, 177.80 cm) ll1 Shakila Coma Score: 17:00 Eye Response: spontaneous(4). Verbal Response: oriented(5). Motor Response: obeys db commands(6). Total: 15. ED Course: 14:34 Patient arrived in ED. mr 14:34 Naveed Fortune DO is Private Physician. mr 14:39 [facility] cp 14:39 Anderson Mitchell MD is Attending Physician. cp 14:47 Arm band placed on Patient placed in an exam room, on a stretcher. ll1 14:50 Triage completed. ll1 15:08 Sandee Katz, RN is Primary Nurse. db 15:25 XRAY Chest (1 view) In Process Unspecified. EDMS 15:30 Missed attempt(s): 20 gauge in right antecubital area. db 17:58 Wendi Ruiz MD is Hospitalizing Provider. cp 17:59 Elisa Bello PA-C is Hospitalizing Provider. cp 19:00 Patient has correct armband on for positive identification. Bed in low position. Call jb4 light in reach. Side rails up X 1. Client placed on continuous cardiac and pulse oximetry monitoring. NIBP monitoring applied. security monitor on. 20:28 No provider procedures requiring assistance completed. Patient admitted, IV remains in jb4 place. Administered Medications: 17:12 Drug: Tessalon Perle (benzonatate) 200 mg Route: PO; db 18:16 Follow up: Response: No adverse reaction db 18:25 Drug: Aspirin Chewable Tablet 162 mg Route: PO; db Medication: 20:27 VIS not applicable for this client. jb4 Outcome: 18:00 Decision to Hospitalize by Provider. cp 20:28 Discharged to home ambulatory. jb4 20:28 Condition: stable 20:28 Discharge instructions given to patient, Instructed on Demonstrated understanding of instructions. 20:29 Patient left the ED. jb4 Signatures: Dispatcher [employer] [facility] Kelly Sahni Anderson Feldman PA PA cp Bryson, James, RN RN jb4 Devin Lazo RN RN [facility] Sandee Katz, RN RN db
[2022-06-14 18:03] LABS: SARS-COV-2 RT PCR NEGATIVE (NEGATIVE)
[2022-06-14] MEDS ORDERED: ASPIRIN 81 MG CHEWABLE TABLET ONE (18:30)
--- NOTE | 2022-06-14 18:44 | P.HP ---
Certification for Inpatient Patient admitted to: Observation With expected LOS: <2 Midnights Patient will require the following post-hospital care: None Practitioner: I am a practitioner with admitting privileges, knowledge of patient current condition, hospital course, and medical plan of care. Services: Services provided to patient in accordance with Admission requirements found in Title 42 Section 412.3 of the Code of Federal Regulations <Elisa Bello - Last Filed: 06/14/22 18:54> Patient History Date of Service: 06/14/22 Primary Care Provider: Tong Reason for admission: Hypoxia, CHF, ESRD History of Present Illness: Patient is a 77-year-old male with ESRD on dialysis, type 2 diabetes insulin- dependent, COPD on home O2, chronic diastolic CHF, hypertension, COPD, hyperlipidemia, and chronic anemia who presented to the ED with complaints of shortness of breath. He states that he has been feeling more short of breath the past 3 days, especially when he lays down. He has had a cough and has not been able to sleep. He was noted to be saturating 80% on room air upon arrival. EKG without acute changes. Labs significant for hemoglobin 8.5, hct 24.2, sodium 133, chloride 96, BUN 40, Cr 5.42, troponin 141, BNP [id number]. Covid/flu negative. Chest xray showed "Small right pleural effusion, Mild bilateral interstitial lung opacities are probably chronic, Heart remains enlarged." He is now saturating appropriately on 4L. ED provider wishes to admit patient for observation. Home medications list reviewed: Yes - Past Medical/Surgical History Diabetic: Yes -: Hypertension -: Hyperlipidemia -: Diabetes type 2, insulin dependent -: End-stage renal disease, hemodialysis-Wednesday, and Saturdays -: Diastolic CHF -: COPD -: skin graft for elctrical persaud - BLE 1970s -: Right shoulder surgery -: bilateral leg surgery Psychosocial/ Personal History: Patient is . He has 3 children - Family History mother and father History Unknown: Yes Notes: adopted - Social History Smoking Status: Former smoker Alcohol use: No CD- Drugs: No Caffeine use: Yes Place of Residence: Home <Elisa Bello - Last Filed: 06/14/22 18:54> Date of Service: 06/15/22 <Mando Tidwell - Last Filed: 06/15/22 16:45> Allergies codeine Allergy (Verified 05/18/22 23:40) Hallucinations gabapentin Adverse Reaction (Verified 10/15/21 23:40) Hallucinations Home Medications: Atorvastatin Calcium 1 tab PO BEDTIME 10/16/21 Insulin Glargine,Hum.rec.anlog [Basaglar Kwikpen U-100] 50 unit SQ DAILY 10/16/21 Sertraline HCl 50 mg PO DAILY 05/26/22 Aspirin [Aspirin EC 81 MG] 81 mg PO DAILY #30 tab 05/28/22 Nepro Shake [Nepro*] 237 ml PO BID #60 can 05/28/22 Review of Systems Respiratory: Cough, Shortness of Breath, SOB with Excertion <Elisa Bello - Last Filed: 06/14/22 18:54> Physical Examination - Vital Signs Temperature: 98.7 F Blood Pressure: 131/59 Pulse: 76 Respirations: 18 Pulse Ox (%): 95 (4L NC) - Physical Exam General: Alert, In no apparent distress HEENT: Atraumatic, PERRLA, EOMI, Sclerae nonicteric Neck: Supple, 2+ carotid pulse no bruit, No LAD, Without JVD or thyroid abnormality Respiratory: Diminished Cardiovascular: Regular rate/rhythm, Normal S1 S2 Gastrointestinal: Normal bowel sounds, No tenderness Musculoskeletal: No tenderness Integumentary: No rashes Neurological: Normal speech, Normal strength at 5/5 x4 extr, Normal tone, Normal affect - Studies Laboratory Data (last 24 hrs) 06/14/22 15:35: PT 15.9 H, INR 1.45 06/14/22 15:35: WBC 7.80, Hgb 8.5 L, Hct 24.2 L, Plt Count 282 06/14/22 15:35: Sodium 133 L, Potassium 4.7, BUN 40 H, Creatinine 5.42 H*, Glucose 234 H, Magnesium 1.9 <Elisa Bello - Last Filed: 06/14/22 18:54> - Studies Laboratory Data (last 24 hrs) 06/14/22 15:35: Sodium 133 L, Potassium 4.7, BUN 40 H, Creatinine 5.42 H*, Glucose 234 H, Magnesium 1.9 <Mando Tidwell - Last Filed: 06/15/22 16:45> Assessment and Plan - Problems (Diagnosis) (1) Anemia Current Visit: Yes Status: Chronic Qualifiers: Anemia type: due to chronic kidney disease Chronic kidney disease stage: on chronic dialysis Qualified Code(s): N18.6 - End stage renal disease; D63.1 - Anemia in chronic kidney disease; Z99.2 - Dependence on renal dialysis (2) CHF (congestive heart failure) Current Visit: Yes Status: Chronic Qualifiers: Heart failure type: diastolic Heart failure chronicity: acute on chronic Qualified Code(s): I50.33 - Acute on chronic diastolic (congestive) heart failure (3) COPD (chronic obstructive pulmonary disease) Current Visit: Yes Status: Chronic Qualifiers: COPD type: unspecified COPD Qualified Code(s): J44.9 - Chronic obstructive pulmonary disease, unspecified (4) ESRD (end stage renal disease) Current Visit: Yes Status: Chronic (5) Hypertension Current Visit: Yes Status: Chronic Qualifiers: Hypertension type: primary hypertension Qualified Code(s): I10 - Essential (primary) hypertension (6) Type 2 diabetes mellitus Current Visit: No Status: Chronic Qualifiers: 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 Continue supportive measures with supplemental O2, antitussives. CHF managed with dialysis as patient no longer makes any urine. Nephrology consult. He last had dialysis on Wednesday. Troponin elevated at 141, but is chronically elevated secondary to demand ischemia. Received aspirin in ED. Will trend. ACHS accu checks with moderate sliding scale. Monitor and replete electrolytes per protocol. Reconcile and continue home medications. Heparin for VTE prophylaxis. Full code. Discharge Plan: Home Plan to discharge in: 24 Hours - Advance Directives Does patient have a Living Will: No Does patient have a Durable POA for Healthcare: Yes - Code Status/Comfort Care Code Status Assessed: Yes Code Status: Full Code Physician Review: Patient Assessed, Agree with Above Assessment and Plan Critical Care: No Time Spent Managing Pts Care (In Minutes): 50 <Elisa Bello - Last Filed: 06/14/22 18:54> Physician Review: Patient Assessed, Agree with Above Assessment and Plan <Mando Tidwell - Last Filed: 06/15/22 16:45>
[2022-06-14] MEDS ORDERED: IPRATROPIUM BROM 0.5MG/2.5ML NEB PRN (20:39)
[2022-06-14] MEDS ORDERED: ONDANSETRON 4 MG/2 ML VIAL IV PRN (20:39)
[2022-06-14] MEDS ORDERED: ACETAMINOPHEN 500 MG TAB PO PRN (20:39)
[2022-06-14] MEDS ORDERED: ALBUTEROL 2.5 MG/3 ML NEB SOL NEB PRN (20:39)
[2022-06-14] MEDS: HYDROCODONE/CHLORPHEN 5 ML/OSYR PO PRN (22:12)
[2022-06-14] MEDS: INSULIN -REGULAR HUMAN 50 UNIT/0.5 ML ML SQ SCH (22:24)
[2022-06-14 22:55] LABS: Troponin High Sensitivity 129.8 pg/mL (<58.9)
[2022-06-15 03:42] LABS: Absolute Lymphocytes (CBC) 1.6 K/uL (0.7-4.9); Hematocrit 21.9 % (39.6-49.0); Lymphocytes % 23.7 % (15.3-44.8); MCV 102.5 fL (80-100); MPV 6.6 fL (7.6-11.3); RBC Red Blood Cell Count 2.14 M/uL (4.33-5.43)
[2022-06-15 04:19] LABS: Albumin 2.6 g/dL (3.4-5.0); Magnesium 1.9 mg/dL (1.6-2.4); Phosphorus 3.8 mg/dL (2.5-4.9); Potassium 4.7 mmol/L (3.5-5.1)
[2022-06-15] MEDS: INSULIN -REGULAR HUMAN 50 UNIT/0.5 ML ML SQ SCH ×4 (07:30→20:28)
[2022-06-15] MEDS ORDERED: INFLUENZA VACCINE (for 6+ mo) 0.5 ML DOSE IMVAC ONE (08:00)
[2022-06-15] MEDS: ASPIRIN EC 81 MG TAB PO SCH (09:04)
[2022-06-15] MEDS ORDERED: ALBUTEROL 2.5 MG/3 ML NEB SOL NEB PRN (15:00)
[2022-06-15] MEDS ORDERED: NA CHLORIDE 0.9% 100 ML ONE (16:31)
--- NOTE | 2022-06-15 16:32 | P.PN ---
Subjective Date of Service: 06/15/22 Primary Care Provider: Tong Chief Complaint: Hypoxia, CHF, ESRD No acute events since admission. He reports persistent shortness of breath. He states that his symptoms are worse when lying flat. He states that he receives MWF iHD, and his last dialysis session was on 06/12/2022. Review of Systems 10-point ROS is otherwise unremarkable Respiratory: Shortness of Breath Cardiovascular: Orthopnea, Edema Physical Examination - Vital Signs Temperature: 98.4 F Blood Pressure: 133/61 Pulse: 60 Respirations: 20 Pulse Ox (%): 98 - Physical Exam General: Alert, In no apparent distress, Oriented x3 HEENT: Atraumatic, Mucous membr. moist/pink, EOMI, Sclerae nonicteric Neck: JVD distended Respiratory: Diminished, Crackles/rales (bibasilar) Cardiovascular: Regular rate/rhythm, Normal S1 S2, No gallops, No rubs, No murmurs, Edema (2+ BLE) Gastrointestinal: Normal bowel sounds, Soft and benign, Non-distended, No tenderness, No rebound, No guarding Musculoskeletal: No clubbing Integumentary: No rashes Neurological: Normal speech, Normal affect - Studies Laboratory Data (last 24 hrs) 06/14/22 15:35: WBC 7.80, Hgb 8.5 L, Hct 24.2 L, Plt Count 282 06/14/22 15:35: Sodium 133 L, Potassium 4.7, BUN 40 H, Creatinine 5.42 H*, Glucose 234 H, Magnesium 1.9 Assessment And Plan - Plan # Acute on Chronic Hypoxic Respiratory Failure - likely secondary to Acute on Chronic Decompensated Diastolic Congestive Heart Failure with Preserved Ejection Fraction # End-Stage Renal Disease on MWF iHD # Chronic Obstructive Pulmonary Disease # Anemia of Chronic Kidney Disease - Evaluation thus far: - NT Pro-BNP = 137,644 - Chest x-ray = "small right pleural effusion. Mild bilateral interstitial lung opacities are probably chronic. Heart remains enlarged." - Transthoracic echocardiogram (reviewed with Dr. Henriquez) = normal LVEF 60- 65%, normal wall motion, moderate concentric LVH, severe diastolic dysfunction, severe pulmonary hypertension with RVSP > 60 mmHg, left atrial enlargement, mild TR, PI, MR, AI - Management plan: - Consulted Nephrology and spoke with Dr. Wilson - recommendations appreciated - Plan for dialysis today - Recommended transfusing 1 unit pRBC during dialysis - Consulted Cardiology and spoke with Dr. Henriquez - recommendations appreciated - Volume removal via hemodialysis - Supplemental oxygen to maintain SpO2 > 92% - Daily weights - Strict I/O - Encouraged incentive spirometry - Cardiac/Renal diet, 1.5 L fluid restriction, 2 g Na restriction # Suspected Type II Non-ST Segment Elevation Myocardial Infarction (Demand Ischemia) secondary to above # Hypertension # Dyslipidemia - Evaluation thus far: - EKG: atrial fibrillation/flutter without STEMI criteria, trend - Serial troponin: 121.1 -> 129.8 -> 141.4 - Transthoracic echocardiogram (reviewed with Dr. Henriquez) = normal LVEF 60- 65%, normal wall motion, moderate concentric LVH, severe diastolic dysfunction, severe pulmonary hypertension with RVSP > 60 mmHg, left atrial enlargement, mild TR, PI, MR, AI - Management plan: - Consulted Cardiology and spoke with Dr. Henriquez - recommendations appreciated - Continue aspirin + atorvastatin - If cardiac ischemia confirmed, plan to start beta-jose, SEYMOUR- inhibitor/ARB as tolerated # Chronic Atrial Fibrillation/Flutter His [id number] = 5 (CHF=1, HTN=1, Age>75=2, DM=1), which warrants anticoagulation. - Currently rate-controlled without medication - appreciate Cardiology recs - Discussed anticoagulation options in dialysis with pharmacy, advised we proceed with apixaban # Type II Diabetes Mellitus - Correction scale insulin Mando Tidwell M.D.
[2022-06-15 20:21] LABS: Hematocrit 31.7 % (39.6-49.0)
[2022-06-15] MEDS: AMOX/K CLAV 500 MG TAB PO SCH (20:27)
[2022-06-15] MEDS: HYDROCODONE/CHLORPHEN 5 ML/OSYR PO PRN (20:27)
[2022-06-15] MEDS: ATORVASTATIN 40 MG TAB PO SCH (20:27)
[2022-06-15] MEDS: APIXABAN 2.5 MG TABLET PO SCH (20:27)
--- NOTE | 2022-06-15 22:01 | CON ---
Date of Consultation: 06/15/2022 Chief Complaint: End-stage renal disease, respiratory failure, hypoxemia, congestive heart failure, fluid overload, and nonproductive cough. History Of Present Illness: The patient is a 77-year-old man with history of end-stage renal disease on dialysis, diabetic kidney disease, insulin-dependent diabetes mellitus type 2, COPD on home oxyge n, chronic diastolic congestive heart failure, hypertension, hyperlipidemia, and anemia due to chroni c kidney disease. The patient presented to emergency room because of shortness of breath and nonprod uctive cough. He denies syncope, chest pain, or irregular heartbeat although he has not been doing w ell over 3 days prior to this admission. He was complaining of nonproductive cough. He was unable t o sleep. He was noted to have saturation in 80s on room air upon arrival. EKG did not show acute ch anges. Lab work showed hemoglobin of 8.5, BUN 40, and creatinine 5.42. Troponin was elevated up to 141 and BNP was severely elevated up to 137,000. COVID and flu were negative. Chest x-ray showed sm all right pleural effusion and mild bilateral interstitial opacities. Heart remained enlarged. The patient was admitted to the hospital. Past Medical History: Hypertension; hyperlipidemia; diabetes mellitus type 2, insulin dependent; end -stage renal disease with hemodialysis on Wednesday, , and Wednesday; diastolic congestive heart failure; COPD; skin graft; electrical persaud to bilateral lower extremities in , right shoulder surgery, and bilateral leg surgery. Family History: He is adopted and he does not know family history. Social History: Former smoker. Denies alcohol and denies drug. Review of Systems: General: Denies fever or chills. Eyes: Denies vision changes. Ears, Nose, Mouth, And Throat: Denies sore throat or earache. Respiratory: Has shortness of breath. Denies PND or orthopnea. Has nonproductive cough. Denies wh eezing. GI: Denies nausea or vomiting. : Denies dysuria or hematuria. All other systems reviewed and all are negative. Physical Examination: General: The patient is awake, alert, follows commands. Eyes: Anicteric sclerae. EOMI. Ears, Nose, Mouth, And Throat: Oral mucosa moist. No pallor. Neck: Supple. No bruits. Lungs: Coarse breath sounds at bases. Heart: S1, S2. Abdomen: Soft. Extremities: Slight edema in both legs. Neurologic: Moving extremities. Cranial nerves intact. Psychiatric: Alert and oriented x3. Normal affect. Laboratory Data: Sodium 133, creatinine 5.42, glucose 234, potassium 4.7, and BUN 40. Hemoglobin 8. 5, WBC 7.8, and platelet count is 282. Impression And Plan: 1.End-stage renal disease. Fluid overload, possible pneumonia. The patient will start antibiotics. Plan is to continue nebulizers and broad-spectrum antibiotics. Culture will be obtained from sputu m and from the blood. 2.Congestive heart failure, diastolic with fluid overload. The patient will have dialysis with ultr afiltration to control fluid overload. 3.Chronic obstructive pulmonary disease exacerbation. The patient may need steroids. 4.Hypertension. Continue blood pressure medication. 5.Diabetes mellitus. Continue insulin. 6.Anemia of chronic kidney disease. Hemoglobin level has declined. Plan is to check CT scan of the abdomen and pelvis to rule out retroperitoneal bleeding and CT scan of the chest will be done to assess pleural effusion and infiltrates after dialysis. Continue antibiotics and monitor chest x-ray . CHRISTINA/MODL Voice ID: [id number] Report ID: [id number]
[2022-06-16 03:41] LABS: Absolute Lymphocytes (CBC) 1.2 K/uL (0.7-4.9); Lymphocytes % 14.9 % (15.3-44.8); MCV 98.5 fL (80-100); MPV 6.8 fL (7.6-11.3); RBC Red Blood Cell Count 3.15 M/uL (4.33-5.43)
[2022-06-16 04:12] LABS: Potassium 4.2 mmol/L (3.5-5.1); Thyroid Stimulating Hormone 2.38 uIU/mL (0.358-3.740)
[2022-06-16] MEDS: BENZONATATE 100 MG CAP PO PRN (04:55)
--- NOTE | 2022-06-16 07:03 | ECHO ---
HEIGHT: 5 ft 10 in WEIGHT: 161 lb 8 oz DATE OF STUDY: 06/15/[address]: Wendi Ruiz MD 2-DIMENSIONAL: YES M.MODE: YES DOPPLER: YES COLOR FLOW: YES TDS: PORTABLE: YES DEFINITY: BUBBLE STUDY: DIAGNOSIS: CONGESTIVE HEART FAILURE CARDIAC HISTORY: CATHERIZATION: SURGERY: PROSTHETIC VALVE: PACEMAKER: MEASUREMENTS (cm) DIASTOLIC (NORMALS) SYSTOLIC (NORMALS) IVSd 1.5 (0.6-1.2) LA Diam 4.6 (1.9-4.0) LVEF 60-65% LVIDd 5.0 (3.5-5.7) LVIDs 3.6 (2.0-3.5) %FS 28% LVPWd 1.6 (0.6-1.2) Ao Diam 3.2 (2.0-3.7) 2 DIMENSIONAL ASSESSMENT: RIGHT ATRIUM: NORMAL LEFT ATRIUM: ENLARGED RIGHT VENTRICLE: NORMAL LEFT VENTRICLE: MODERATE LEFT VENTRICULAR HYPERTROPHY TRICUSPID VALVE: MILD TRICUSPID REGURGITATION MITRAL VALVE: MILD MITRAL REGURGITATION/ MITRAL ANNULAR CALCIFICATION PULMONIC VALVE: MILD PULMONIC INSUFFICIENCY AORTIC VALVE: NORMAL PERICARDIAL EFFUSION: NONE AORTIC ROOT: NORMAL LEFT VENTRICULAR WALL MOTION: NORMAL DOPPLER/COLOR FLOW: COMMENTS: 1. NORMAL LEFT VENTRICULAR EJECTION FRACTION 60-65% WITH NORMAL WALL MOTION 2. MODERATE CONCENTRIC LEFT VENTRICULAR HYPERTROPHY 3. SEVERE DIASTOLIC DYSFUNCTION 4. SEVERE PULMONARY HYPERTENSION WITH RIGHT VENTRICULAR SYSTOLIC PRESSURE GREATER THAN 60 mmHg 5. LEFT ATRIAL ENLARGEMENT 6. MILD TRICUSPID REGURGITATION, PULMONIC INSUFFICIENCY, MITRAL REGURGITATION, AORTIC INSUFFICIENCY TECHNOLOGIST: SRINI PALMA
--- NOTE | 2022-06-16 07:38 | EKG ---
Test Date: 2022-06-14 Test Time: 15:21:46 Manager Floor: HALLE MEASUREMENT RESULTS: Intervals: Rate: 76 CO: QRSD: 168 QT: 458 QTc: 515 [place]: P: -56 CO: QRS: 258 T: -15 INTERPRETIVE STATEMENTS: Atrial flutter with variable AV block Right bundle branch block Septal infarct, age undetermined Abnormal ECG Compared to ECG 01/22/2022 13:27:25 Myocardial infarct finding now present Atrial fibrillation no longer present Ventricular premature complex(es) no longer present Left anterior fascicular block no longer present Bifascicular block no longer present Electronically Signed On 06-16-22 07:36:18 RING PACKER by Francisco Saucedo
[2022-06-16] MEDS: INSULIN -REGULAR HUMAN 50 UNIT/0.5 ML ML SQ SCH ×4 (08:55→21:00)
[2022-06-16] MEDS: HYDROCODONE/CHLORPHEN 5 ML/OSYR PO PRN ×2 (08:55→21:50)
[2022-06-16] MEDS: MONTELUKAST 10 MG TAB PO SCH (08:57)
[2022-06-16] MEDS: FOLIC ACID 1 MG TABLET PO SCH (08:57)
[2022-06-16] MEDS: APIXABAN 2.5 MG TABLET PO SCH (08:57)
[2022-06-16] MEDS: CETIRIZINE HCL 5 MG TABLET PO SCH (08:57)
[2022-06-16] MEDS: ASPIRIN EC 81 MG TAB PO SCH (08:57)
[2022-06-16] MEDS: PANTOPRAZOLE 40MG TABLET PO SCH ×2 (08:58→16:23)
[2022-06-16] MEDS: AMOX/K CLAV 500 MG TAB PO SCH (08:58)
[2022-06-16] MEDS: predniSONE 20 MG TAB PO SCH (08:58)
[2022-06-16] MEDS ORDERED: EPOETIN ALFA 10,000 UNIT/ML VIAL SQ SCH (09:00)
[2022-06-16] MEDS ORDERED: EPOETIN 4,000 UNIT/ML VIAL IV SCH (10:00)
--- NOTE | 2022-06-16 10:07 | P.PN ---
Subjective Date of Service: 06/16/22 Primary Care Provider: Tong Chief Complaint: Hypoxia, CHF, ESRD A 77 Y/o man with PMhx of ESRd on HD MWF , anemia of chronic disease, HTN , whs was admitted after persistent cough and SOB COVID 19 and Influenza negative today still have cough cont O2 HD yesterday and today Physical exam General: AAOx3, in distress, obese HEENT PERRLA, moist mucose membrane neck: supple, no elevated JVD CHEST; decreased air entry HEART : RRR. Normal S1,2 no murmur or rub Abd: soft, Nt Ext: trace edema Skin : No rash #ESRD on outpt HD [facility] at [facility]. S/p HD yesterday and today renal diet renal dose medications #Acute on chronic anemia S/p 2PRBC recent CT scan : no hematoma No active bleeding #Pleural effusuion cont HD S/p 1.1 liter thoracenecis last admission #Peripheral artery disease. Per other services. #DM2. Per primary team. #Hx of COPD on home O2 TTE with severe pulmonary HTN #NSTEMI? cardiology consulted trend cardiac enzymez Total time spent 45 minutes including documentation, reviewing labs , placing orders and discussing with medical team Physical Examination - Vital Signs Temperature: 99.4 F Blood Pressure: 136/59 Pulse: 78 Respirations: 18 Pulse Ox (%): 98 Assessment And Plan Physician Review: Patient Assessed, Agree with Above Assessment and Plan
--- NOTE | 2022-06-16 12:12 | RAD REPORT ---
EXAM DESCRIPTION: RADChest Pa And Lat (2 Views)06/16/2022 10:11 am CLINICAL HISTORY: Shortness of breath COMPARISON: June 14, 2022 FINDINGS: Right pleural effusion has increased in size. It is moderate and loculated. Right basilar lung opacities. Left lung appears clear. Heart remains enlarged
--- NOTE | 2022-06-16 12:13 | RAD REPORT ---
EXAM DESCRIPTION: CT - Chest Abd Pelvis Wo Con - 06/16/2022 10:02 am CLINICAL HISTORY: Chest and abdominal pain COMPARISON: April 2022 TECHNIQUE: Computed axial tomography of the chest, abdomen and pelvis was obtained. Oral contrast wa s given. IV contrast was not requested. All CT scans are performed using dose optimization technique as appropriate and may include automated exposure control or mA/KV adjustment according to patient size. FINDINGS: The evaluation of mediastinum, yong, vessels and solid organs is limited secondary to the lack of IV contrast administration Moderate loculated right pleural effusion. Mild right lung atelectasis Calcified lung granuloma. Moderate hiatal hernia. No mediastinal or hilar lymphadenopathy. Coronary arterial calcifications. No pericardial effusion Stable left adrenal nodule. Renal cysts. With Cholelithiasis without gallbladder wall thickening. Liver and pancreas appear grossly normal. Small splenic lesion probably cyst. Arterial calcifications. Mild enlarged prostate gland. Diverticula stem from the colon without visual ization diverticulitis. Normal appendix. Large left and moderate right inguinal hernias contain fat IMPRESSION: Moderate loculated right pleural effusion
--- NOTE | 2022-06-16 12:54 | P.PN ---
Subjective Date of Service: 06/16/22 Primary Care Provider: Tong Chief Complaint: Hypoxia, CHF, ESRD No acute events overnight. He underwent hemodialysis yesterday and tolerated it well. He states that this morning, his shortness of breath has slightly improved, but he continues to experience a productive cough. Review of Systems 10-point ROS is otherwise unremarkable Respiratory: Cough, Shortness of Breath Cardiovascular: Orthopnea, Edema Physical Examination - Vital Signs Temperature: 99.1 F Blood Pressure: 141/56 Pulse: 75 Respirations: 18 Pulse Ox (%): 98 - Studies Laboratory Data (last 24 hrs) 06/16/22 02:48: Sodium 137, Potassium 4.2, BUN 30 H, Creatinine 4.52 H, Glucose 173 H 06/16/22 02:48: WBC 8.30, Hgb 10.8 L, Hct 31.0 L, Plt Count 279 06/15/22 20:12: Hgb 10.9 L D, Hct 31.7 L Assessment And Plan - Plan - Physical Exam General: Alert, In no apparent distress, Oriented x3 HEENT: Atraumatic, Mucous membr. moist/pink, Sclerae nonicteric Neck: JVD distended Respiratory: Diminished, Crackles/rales (bibasilar) Cardiovascular: Regular rate/rhythm, Normal S1 S2, No gallops, No rubs, No murmurs, Edema (2+ BLE) Gastrointestinal: Normal bowel sounds, Soft and benign, Non-distended, No tenderness, No rebound, No guarding Musculoskeletal: No clubbing Integumentary: No rashes Neurological: Normal speech, Normal affect # Acute on Chronic Hypoxic Respiratory Failure - likely secondary to Acute on Chronic Decompensated Diastolic Congestive Heart Failure with Preserved Ejection Fraction and Moderate Loculated Right Pleural Effusion # End-Stage Renal Disease on MWF iHD # Chronic Obstructive Pulmonary Disease # Anemia of Chronic Kidney Disease - Evaluation thus far: - NT Pro-BNP = 137,644 - Chest x-ray = "small right pleural effusion. Mild bilateral interstitial lung opacities are probably chronic. Heart remains enlarged." - Transthoracic echocardiogram (reviewed with Dr. Henriquez) = normal LVEF 60- 65%, normal wall motion, moderate concentric LVH, severe diastolic dysfunction, severe pulmonary hypertension with RVSP > 60 mmHg, left atrial enlargement, mild TR, PI, MR, AI - CT chest/abdomen/pelvis = "moderate loculated right pleural effusion" - Management plan: - Consulted Nephrology and spoke with Dr. Thibodeaux - recommendations apprec iated - Plan for dialysis today - S/P 1 unit pRBC on 06/15/2022 - Consulted Cardiology and spoke with Dr. Henriquez - recommendations appreciated - Consulted Pulmonary Medicine and spoke with Dr. Hoang - recommendations appreciated - Apixaban held in anticipation for possible thoracentesis - Volume removal via hemodialysis - Empiric antibiotics: Ceftriaxone + Doxycycline started given productive cough and concern for pulmonary infection - Does not currently meet sepsis criteria - Supplemental oxygen to maintain SpO2 > 92% - Daily weights - Strict I/O - Encouraged incentive spirometry - Cardiac/Renal diet, 1.5 L fluid restriction, 2 g Na restriction # Suspected Type II Non-ST Segment Elevation Myocardial Infarction (Demand Ischemia) secondary to above # Hypertension # Dyslipidemia - Evaluation thus far: - EKG: atrial fibrillation/flutter without STEMI criteria, trend - Serial troponin: 121.1 -> 129.8 -> 141.4 - Transthoracic echocardiogram (reviewed with Dr. Henriquez) = normal LVEF 60- 65%, normal wall motion, moderate concentric LVH, severe diastolic dysfunction, severe pulmonary hypertension with RVSP > 60 mmHg, left atrial enlargement, mild TR, PI, MR, AI - Management plan: - Consulted Cardiology and spoke with Dr. Henriquez - recommendations appreciated - Continue aspirin + atorvastatin - If cardiac ischemia confirmed, plan to start beta-jose, SEYMOUR- inhibitor/ARB as tolerated # Chronic Atrial Fibrillation/Flutter His [id number] = 5 (CHF=1, HTN=1, Age>75=2, DM=1), which warrants anticoagulation. - Currently rate-controlled without medication - appreciate Cardiology recs - Apixaban held in anticipation for possible thoracentesis # Type II Diabetes Mellitus - Correction scale insulin Mando Tidwell M.D.
[2022-06-16] MEDS: CEFTRIAXONE 1,000 MG in NA CHLORIDE 0.9% 50 ML IVPB SCH (14:12)
[2022-06-16] MEDS: DOXYCYCLINE 100 MG in NA CHLORIDE 0.9% 100 ML IVPB SCH ×2 (14:28→21:50)
--- NOTE | 2022-06-16 18:59 | PN ---
Date of Progress Note: 06/16/2022 Subjective: Seen by bedside. Feels generally weak with some shortness of breath and gets chest pain on and off. Review of Systems: Chest pain as above with some shortness of breath on exertion. No orthopnea. No nausea, vomiting, d iarrhea. No abdominal pain. All other systems reviewed are negative. Physical Examination: Vital Signs: Temperature is 99.1, pulse 75, breathing at 18, blood pressure 141/56, saturating 98%. General: This is a pleasant elderly male, in no apparent distress. Head and Neck: Pupils are equal, reactive to light. Intact eye movements. Slight JVD elevation. Abdomen: Soft, nontender. Bowel sounds positive. No organomegaly. No masses or hernia. No rigidi ty or rebound. Extremities: No clubbing, cyanosis. Positive edema, Skin: No rash or nodules. Neurologic: Alert, awake. No acute focal deficits appreciated. Investigations: BUN 30, creatinine 4.5. Hemoglobin is 10.8. Assessment/recommendations: 1.Elevated troponin. Patient gets chest pain and has multiple risk factors. Recommend a Lexiscan n uclear stress test tomorrow and further ischemia workup if needed. 2.Fluid overload. Patient will require more dialysis and appears to be short of breath. 3.Hypertension. Blood pressure is acceptable. SR/MODL Voice ID: [id number] Report ID: [id number]
[2022-06-16] MEDS: NEPRO SHAKE 237 ML CAN PO SCH (21:00)
[2022-06-16] MEDS ORDERED: NA CHLORIDE 0.9% 100 ML ONE (21:37)
[2022-06-16] MEDS: ATORVASTATIN 40 MG TAB PO SCH (21:50)
[2022-06-17 00:58] VITALS: BMI 23.8
[2022-06-17 04:40] LABS: Potassium 4.4 mmol/L (3.5-5.1)
[2022-06-17 04:42] LABS: Absolute Lymphocytes (CBC) 1.4 K/uL (0.7-4.9); Hematocrit 28.1 % (39.6-49.0); Lymphocytes % 16.4 % (15.3-44.8); MCV 99.3 fL (80-100); MPV 6.7 fL (7.6-11.3); RBC Red Blood Cell Count 2.83 M/uL (4.33-5.43)
[2022-06-17] MEDS: INSULIN -REGULAR HUMAN 50 UNIT/0.5 ML ML SQ SCH ×4 (07:30→20:50)
[2022-06-17] MEDS: HYDROCODONE/CHLORPHEN 5 ML/OSYR PO PRN (08:34)
[2022-06-17] MEDS: MONTELUKAST 10 MG TAB PO SCH (08:35)
[2022-06-17] MEDS: PANTOPRAZOLE 40MG TABLET PO SCH ×2 (08:35→16:12)
[2022-06-17] MEDS: FOLIC ACID 1 MG TABLET PO SCH (08:35)
[2022-06-17] MEDS: CETIRIZINE HCL 5 MG TABLET PO SCH (08:35)
[2022-06-17] MEDS: predniSONE 20 MG TAB PO SCH (08:35)
[2022-06-17] MEDS: CEFTRIAXONE 1,000 MG in NA CHLORIDE 0.9% 50 ML IVPB SCH (08:37)
--- NOTE | 2022-06-17 08:39 | P.CNS ---
Date of Consult: 06/17/22 Reason for Consult: Cough Primary Care Provider: Tong Chief Complaint: Hypoxia, CHF, ESRD History of Present Illness: Patient is 77 years of age end-stage renal disease on diabetes metabolic syndrome diastolic heart failure. To the emergency room with shortness of breath he has been coughing the past 3 to 4 days noted to be hypoxic patient has oxygen at home Allergies codeine Allergy (Verified 10/15/21 23:40) Hallucinations gabapentin Adverse Reaction (Verified 10/15/21 23:40) Hallucinations Home Medications: Atorvastatin Calcium 1 tab PO BEDTIME 10/16/21 Insulin Glargine,Hum.rec.anlog [Basaglar Kwikpen U-100] 50 unit SQ DAILY 10/16/21 Sertraline HCl 50 mg PO DAILY 05/26/22 Aspirin [Aspirin EC 81 MG] 81 mg PO DAILY #30 tab 05/28/22 Nepro Shake [Nepro*] 237 ml PO BID #60 can 05/28/22 - Past Medical/Surgical History Diabetic: Yes -: Hypertension -: Hyperlipidemia -: Diabetes type 2, insulin dependent -: End-stage renal disease, hemodialysis-Wednesday, Wednesday, Wednesday -: Diastolic CHF -: COPD -: skin graft for elctrical persaud - BLE 1970s -: Right shoulder surgery -: bilateral leg surgery -: 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 He has 3 children - Family History mother and father History Unknown: Yes Notes: adopted - Social History Smoking Status: Unknown if ever smoked Alcohol use: No CD- Drugs: No Caffeine use: No Place of Residence: Home Review of Systems General: Weakness Respiratory: Cough, Shortness of Breath Physical Examination Temp Pulse Resp BP Pulse Ox 98.3 F 57 17 146/46 H 100 06/17/22 04:00 06/17/22 04:00 06/17/22 04:00 06/17/22 04:00 06/17/22 04:00 General: Alert, In no apparent distress, Oriented x3 Respiratory: Diminished (Diminished on the right side) Cardiovascular: No edema, Normal pulses, Regular rate/rhythm - Problems (1) CHF (congestive heart failure) Current Visit: Yes Status: Chronic Plan: Patient is 77 years of age admitted with shortness of breath acute cough there is no evidence of pneumonia patient does have a chronic right-sided pleural effusion no evidence of infection white count is normal DC IV antibiotic with antitussives no fever he has oxygen at home plan to discharge low-dose prednisone check room air pulse ox discharge on p.o. doxycycline low-dose prednisone 10 mg a day for a week Qualifiers: Heart failure type: diastolic Heart failure chronicity: acute on chronic Qualified Code(s): I50.33 - Acute on chronic diastolic (congestive) heart failure
[2022-06-17] MEDS: NEPRO SHAKE 237 ML CAN PO SCH ×2 (08:42→20:50)
[2022-06-17] MEDS: DOXYCYCLINE 100 MG CAP PO SCH ×3 (09:00→20:50)
[2022-06-17] MEDS: PROMETHAZINE-DM 5 ML OSYR PO SCH ×4 (09:00→20:49)
[2022-06-17] MEDS ORDERED: REGADENOSON 0.4 MG/5 ML SYR IV ONE (10:00)
--- NOTE | 2022-06-17 11:22 | RAD REPORT ---
EXAM DESCRIPTION: NM - Rest Stress Cardiac Imaging - 06/17/2022 11:07 am CLINICAL HISTORY: CP Chest pain. COMPARISON: Rest Stress Cardiac Imaging dated 09/10/2015 TECHNIQUE: The patient was administered approximately 10mCi of Tc 99m Sestamibi prior to resting SPE CT imaging of the heart. The patient was then administered approximately 30 mCi of Tc 99m Sestamibi f ollowing exercise or pharmacologic stress. Multiplanar SPECT images were reviewed. FINDINGS: There is significant left ventricular cavity enlargement with both rest and stress imaging . Diminished radiopharmaceutical accumulation along the inferior wall appears stable with rest and st ress. However, apical perfusion defect is suspected, mild in severity and small in size, is seen with stress. The end diastolic volume is 214 ml, the end systolic volume is 116 ml, and the ejection fraction is 4 6 %. IMPRESSION: Small area of mild stress-induced ischemia suspected involving the LV apex.
--- NOTE | 2022-06-17 18:21 | P.PN ---
Subjective Date of Service: 06/17/22 Primary Care Provider: Tong Chief Complaint: Hypoxia, CHF, ESRD No acute events overnight. His breathing is significantly improved this morning. Plan is for cardiac stress test today. He denies any active chest pain or palpitations. Review of Systems 10-point ROS is otherwise unremarkable Respiratory: SOB with Excertion Cardiovascular: Orthopnea, Edema Physical Examination - Vital Signs Temperature: 97.3 F Blood Pressure: 133/60 Pulse: 56 Respirations: 18 Pulse Ox (%): 90 Assessment And Plan - Plan - Physical Exam General: Alert, In no apparent distress, Oriented x3 HEENT: Atraumatic, Mucous membr. moist/pink, Sclerae nonicteric Neck: JVD distended Respiratory: Diminished, Crackles/rales (faint bibasilar) Cardiovascular: Regular rate/rhythm, Normal S1 S2, No gallops, No rubs, No murmurs, Edema (1-2+ BLE) Gastrointestinal: Normal bowel sounds, Soft and benign, Non-distended, No tenderness, No rebound, No guarding Musculoskeletal: No clubbing Integumentary: No rashes Neurological: Normal speech, Normal affect # Acute on Chronic Hypoxic Respiratory Failure - likely secondary to Acute on Chronic Decompensated Diastolic Congestive Heart Failure with Preserved Ejection Fraction and Moderate Loculated Right Pleural Effusion # End-Stage Renal Disease on MWF iHD # Chronic Obstructive Pulmonary Disease # Anemia of Chronic Kidney Disease - Evaluation thus far: - NT Pro-BNP = 137,644 - Chest x-ray = "small right pleural effusion. Mild bilateral interstitial lung opacities are probably chronic. Heart remains enlarged." - Transthoracic echocardiogram (reviewed with Dr. Henriquez) = normal LVEF 60- 65%, normal wall motion, moderate concentric LVH, severe diastolic dysfunction, severe pulmonary hypertension with RVSP > 60 mmHg, left atrial enlargement, mild TR, PI, MR, AI - CT chest/abdomen/pelvis = "moderate loculated right pleural effusion" - Management plan: - Consulted Nephrology and spoke with Dr. Thibodeaux - recommendations appreciated - Plan for dialysis today - S/P 1 unit pRBC on 06/15/2022 - Consulted Cardiology and spoke with Dr. Henriquez - recommendations appreciated - Consulted Pulmonary Medicine and spoke with Dr. Hoang - recommendations appreciated - Apixaban held in anticipation for possible thoracentesis - Volume removal via hemodialysis - Empiric antibiotics: Ceftriaxone + Doxycycline started given productive cough and concern for pulmonary infection - Does not currently meet sepsis criteria - Supplemental oxygen to maintain SpO2 > 92% - Daily weights - Strict I/O - Encouraged incentive spirometry - Cardiac/Renal diet, 1.5 L fluid restriction, 2 g Na restriction # Suspected Type II Non-ST Segment Elevation Myocardial Infarction (Demand I schemia) secondary to above # Hypertension # Dyslipidemia - Evaluation thus far: - EKG: atrial fibrillation/flutter without STEMI criteria, trend - Serial troponin: 121.1 -> 129.8 -> 141.4 - Transthoracic echocardiogram (reviewed with Dr. Henriquez) = normal LVEF 60- 65%, normal wall motion, moderate concentric LVH, severe diastolic dysfunction, severe pulmonary hypertension with RVSP > 60 mmHg, left atrial enlargement, mild TR, PI, MR, AI - Management plan: - Consulted Cardiology and spoke with Dr. Henriquez - recommendations appreciated - Plan for cardiac stress test today - Continue aspirin + atorvastatin - Started metoprolol - If cardiac ischemia confirmed, plan to start SEYMOUR-inhibitor/ARB as tolerated # Chronic Atrial Fibrillation/Flutter His [id number] = 5 (CHF=1, HTN=1, Age>75=2, DM=1), which warrants anticoagulation. - Currently rate-controlled without medication - appreciate Cardiology recs - Apixaban held in anticipation for possible thoracentesis # Type II Diabetes Mellitus - Correction scale insulin Mando Tidwell M.D.
[2022-06-17] MEDS: EPOETIN ALFA 10,000 UNIT/ML VIAL IV SCH (18:30)
[2022-06-17] MEDS: METOPROLOL TAR 25 MG TAB PO SCH (19:20)
--- NOTE | 2022-06-17 19:21 | PN ---
Date of Progress Note: 06/17/2022 Subjective: Seen at bedside, doing well. Has mild shortness of breath. No nausea, vomiting, or robert rrhea. No dysuria, polyuria, or urinary urgency. All other systems reviewed and they are negative. Physical Examination: Vital Signs: Temperature is 97.5, pulse 58, breathing at 16, blood pressure is 145/48, and saturatin g 100%. General: A pleasant elderly male, in no apparent distress. Head And Neck: Pupils are equal and reactive to light. Intact eye movements. No JVD. No cervical lymphadenopathy. Neck is supple. Thyroid is not enlarged. Lungs: Clear to auscultation bilaterally. No rhonchi, wheezing, or crackles. No accessory muscle u se. Heart: Irregular. No extra sounds. Abdomen: Soft, nontender. Bowel sounds positive. No organomegaly. No masses or hernia. No rigidi ty or rebound. Extremities: No clubbing or cyanosis. Intact pulses. Skin: No rash. Neurologic: Alert, awake, and oriented x3. No acute focal deficits appreciated. Investigations: BUN 45 and creatinine 5.8. Hemoglobin is 9.9. The nuclear stress test showed a sma ll area of mild stress-induced ischemia involving the apex of the left ventricle. Assessment And Recommendation: 1.Elevated troponin with abnormal stress test. The patient has multiple cardiac risk factors. The patient will need a coronary angiogram, which we will plan on doing once his condition is more stable . 2.End-stage renal disease, on hemodialysis. 3.Hypertension. Blood pressure is controlled. Continue current management. SR/MODL Voice ID: [id number] Report ID: [id number]
--- NOTE | 2022-06-17 20:06 | PN ---
Date of Progress Note: 06/17/2022 Subjective: The patient was admitted with over volume. The patient was dialyzed. The patient feeling well. The patient is scheduled for dialysis today. Physical Examination: Vital Signs: Blood pressure 133/60, pulse of 56, afebrile. Chest: Crackles bilateral base. Heart: S1, S2 systolic murmur. Abdomen: Soft, nontender. Extremities: No edema. Laboratory Data: Hemoglobin 9.5. Sodium 134, potassium 4.4, bicarb 30, BUN 45, creatinine 5.8, calcium 9.4. Medications: Current medications the patient on, include: Tylenol, albuterol, Eliquis, aspirin, atorvastatin, cetirizine, doxycycline, Epogen, folic acid, Singulair, pantoprazole, and prednisone. Assessment And Plan: 1. End-stage renal disease with over volume. I am going to arrange for dialysis today and we will challenge the patient. If stays stable, the patient okay from the renal standpoint for discharge planning after dialysis. 2. Hypertension, controlled, optimal. Continue current medication. We will utilize blood pressure for more diuresis. 3. Anemia of chronic kidney disease. Continue LUANNE. 4. Coronary artery disease with congestive heart failure as above. We will try to establish better volume control with dialysis. Time spent examining the patient [id number] reviewing data lab and radiology discussing the case with the patient placing order discussing the case with the merchandise team manager including nursing discussing the case with the hospitalist more than 35-minute VISHAL Voice ID: [id number] Report ID: [id number] MANJINDER
[2022-06-17] MEDS: ATORVASTATIN 40 MG TAB PO SCH (20:50)
[2022-06-18] MEDS: HYDROCODONE/CHLORPHEN 5 ML/OSYR PO PRN (01:02)
[2022-06-18] MEDS: PROMETHAZINE-DM 5 ML OSYR PO SCH ×5 (02:01→20:57)
[2022-06-18] MEDS: METOPROLOL TAR 25 MG TAB PO SCH ×2 (05:52→18:00)
[2022-06-18] MEDS: PANTOPRAZOLE 40MG TABLET PO SCH ×4 (07:30→16:18)
--- NOTE | 2022-06-18 07:34 | TREADPHA ---
DX: CONGESTIVE HEART FAILURE/ ELEVATED TROPONIN Date of Study: 06/17/22 Ht: 5' 10 " Wt: 165 lb 14.4 oz Consulting Physician: DR. LEWIS MEDICATIONS: TYLENOL, PROVENTIL, ELIQUIS, ASPIRIN, LIPITOR, RETACRIT, NOVOLIN, ATROVENT, ZOFRAN, PROTONIX, DELTASONE. HISTORY: 77 YEAR OLD MALE WITH COMPLAINTS OF CHEST PAIN, HISTORY OF CONGESTIVE HEART FAILURE, DIABETES MELLITUS II, GERD, END STAGE RENAL DISEASE. DENIES SMOKING, ALCOHOL USE, DRUG USE. PHYSICIAL EXAMINATION: RESTING B.P.: 126/53 RESTING H.R.: 58 RESTING EKG: NORMAL SINUS RHYTHM, WITH RIGHT BUNDLE BRANCH BLOCK. PROTOCOL: LEXISCAN EXERCISE TIME: 3:30 B.P. AT PEAK STRESS: 118/52 IMPRESSION: LEXISCAN INJECTED, CARDIOLITE GIVEN PER PROTOCOL, SEE NUCLEAR MEDICINE REPORT. FREQUENT PREMATURE ATRIAL COMPLEXES NOTED THROUGHOUT EXAM. DENIES CHEST PAIN. COMPLAINTS OF SHORTNESS OF BREATH. PLACED ON 3 LITERS N/C O2 WHICH GAVE PATIENT RELIEF. NO SUPRA VENTRICULAR TACHYCARDIA OR VENTRICULAR NOTED. OCCASIONAL PREMATURE VENTRICULAR COMPLEXES NOTED. NO EKG CHANGES OF ISCHEMIA (NON DIAGNOSTIC).
[2022-06-18] MEDS: MONTELUKAST 10 MG TAB PO SCH ×2 (09:00→11:02)
[2022-06-18] MEDS: DOXYCYCLINE 100 MG CAP PO SCH ×4 (09:00→20:57)
[2022-06-18] MEDS: FOLIC ACID 1 MG TABLET PO SCH ×2 (09:00→11:01)
[2022-06-18] MEDS: NEPRO SHAKE 237 ML CAN PO SCH ×3 (09:00→20:58)
[2022-06-18] MEDS: CETIRIZINE HCL 5 MG TABLET PO SCH ×2 (09:00→11:02)
[2022-06-18] MEDS: predniSONE 20 MG TAB PO SCH ×2 (09:00→11:07)
[2022-06-18] MEDS: INSULIN -REGULAR HUMAN 50 UNIT/0.5 ML ML SQ SCH ×4 (10:20→20:58)
--- NOTE | 2022-06-18 12:39 | PN ---
Date of Progress Note: 06/18/2022 Subjective: The patient was admitted with shortness of breath. The patient had dialysis yesterday. His cough has been subsided. The patient feeling well. Physical Examination: Vital Signs: When I saw the patient; blood pressure 144/62, pulse of 58, afebrile. Chest: Faint crackles bilateral base. Heart: S1, S2. Systolic murmur. Abdomen: Soft, nontender. Extremity: Plus edema. Neuro: Alert. No focality. Laboratory Data: Chest x-ray; right pleural effusion, increase in size, localized. Hemoglobin 9.9. Sodium 137, potassium 4, bicarb 33, BUN 36, creatinine 4.3, calcium 9.4. Current Medications: The patient on include albuterol, cetrizine, doxycycline, aspirin, atorvastatin , metoprolol, breathing treatment, pantoprazole. Assessment And Plan: 1.End-stage renal disease, over volume. We managed to remove 4.5 L yesterday. The patient still sh ortness of breath. I am going to go ahead and get another session of sequential dialysis today of 2 hours and we will try to remove more fluid. We will arrange for the patient for paracentesis and we will follow up the patient. 2.Hypertension. We will utilize blood pressure for more diuresis. 3.Anemia of chronic kidney disease, status post transfusion. Continue LUANNE. 4.Suspect of pneumonia with a pleural effusion. We will discuss about thoracocentesis and we will f ollow up with primary. 5.Respiratory failure, multifactorial, secondary to over volume and pleural effusion/cardiorenal. We will challenge the patient. We will do sequential today and we richard l follow up. AL/BILLY Voice ID: [id number] Report ID: [id number]
--- NOTE | 2022-06-18 17:39 | PN ---
Date of Progress Note: 06/18/2022 Subjective: Seen by bedside. Doing well. No new complaints. Review of Systems: No chest pain, shortness of breath, orthopnea, cough, nausea, vomiting, diarrhea. All other systems reviewed and they were negative. Physical Examination: Vital Signs: Reviewed. Head and Neck: Pupils are equal, reactive to light. Intact eye movements. No JVD. No cervical lym phadenopathy. Neck is supple. Thyroid is not enlarged. Lungs: Clear to auscultation bilaterally. No rhonchi, wheezing, or crackles. No accessory muscle u se. Heart: Regular rate and rhythm. No extra sounds. Abdomen: Soft, nontender. Bowel sounds positive. No organomegaly. No masses or hernia. No rigidi ty or rebound. Extremities: No clubbing or cyanosis. Intact pulses. Skin: No rash. Neurologic: Alert, awake, oriented x3. No acute focal deficits appreciated. Investigations: BUN is 36, creatinine 4.3, and hemoglobin is 9.9. Assessment And Recommendations: 1.Elevated troponin with a positive stress test. Plan for coronary angiogram tomorrow morning, keep n.p.o. past midnight. 2.End-stage renal disease, on hemodialysis. Continue current management. SR/MODL Voice ID: [id number] Report ID: [id number]
--- NOTE | 2022-06-18 20:26 | P.PN ---
Subjective Date of Service: 06/18/22 Primary Care Provider: Tong Chief Complaint: Hypoxia, CHF, ESRD No acute events overnight. His cardiac stress test was positive. Cardiology was unable to accommodate for a left cardiac catheterization today due to scheduling. Plan for procedure tomorrow. He denies any active chest pain or palpitations. Review of Systems 10-point ROS is otherwise unremarkable General: Weakness (generalized) Physical Examination - Vital Signs Temperature: 98.0 F Blood Pressure: 132/57 Pulse: 59 Respirations: 16 Pulse Ox (%): 99 Assessment And Plan - Plan - Physical Exam General: Alert, In no apparent distress, Oriented x3 HEENT: Atraumatic, Mucous membr. moist/pink, Sclerae nonicteric Neck: JVD distended Respiratory: Diminished, Clear to auscultation bilaterally, without wheezes, rhonchi, or rales Cardiovascular: Regular rate/rhythm, Normal S1 S2, No gallops, No rubs, No murmurs, Edema (1+ BLE) Gastrointestinal: Normal bowel sounds, Soft and benign, Non-distended, No tenderness, No rebound, No guarding Musculoskeletal: No clubbing Integumentary: No rashes Neurological: Normal speech, Normal affect # Acute on Chronic Hypoxic Respiratory Failure - likely secondary to Acute on Chronic Decompensated Diastolic Congestive Heart Failure with Preserved Ejection Fraction and Moderate Loculated Right Pleural Effusion # End-Stage Renal Disease on MWF iHD # Chronic Obstructive Pulmonary Disease # Anemia of Chronic Kidney Disease - Evaluation thus far: - NT Pro-BNP = 137,644 - Chest x-ray = "small right pleural effusion. Mild bilateral interstitial l doreen opacities are probably chronic. Heart remains enlarged." - Transthoracic echocardiogram (reviewed with Dr. Henriquez) = normal LVEF 60- 65%, normal wall motion, moderate concentric LVH, severe diastolic dysfunction, severe pulmonary hypertension with RVSP > 60 mmHg, left atrial enlargement, mild TR, PI, MR, AI - CT chest/abdomen/pelvis = "moderate loculated right pleural effusion" - Management plan: - Consulted Nephrology and spoke with Dr. Sanchez - recommendations appreciated - S/P 1 unit pRBC on 06/15/2022 - Consulted Cardiology and spoke with Dr. Henriquez - recommendations appreciated - Consulted Pulmonary Medicine and spoke with Dr. Hoang - recommendations appreciated - Volume removal via hemodialysis - Empiric antibiotics: Ceftriaxone + Doxycycline started given productive cough and concern for pulmonary infection - Does not currently meet sepsis criteria - Supplemental oxygen to maintain SpO2 > 92% - Daily weights - Strict I/O - Encouraged incentive spirometry - Cardiac/Renal diet, 1.5 L fluid restriction, 2 g Na restriction # Suspected Type II Non-ST Segment Elevation Myocardial Infarction (Demand Ischemia) secondary to above # Hypertension # Dyslipidemia - Evaluation thus far: - EKG: atrial fibrillation/flutter without STEMI criteria, trend - Serial troponin: 121.1 -> 129.8 -> 141.4 - Transthoracic echocardiogram (reviewed with Dr. Henriquez) = normal LVEF 60- 65%, normal wall motion, moderate concentric LVH, severe diastolic dysfunction, severe pulmonary hypertension with RVSP > 60 mmHg, left atrial enlargement, mild TR, PI, MR, AI - Management plan: - Consulted Cardiology and spoke with Dr. Henriquez - recommendations appreciated - Cardiac stress test (06/17/2022) = "small area of mild stress-induced ischemia suspected involving the LV apex." - Continue aspirin + atorvastatin - Started metoprolol - Plan to start SEYMOUR-inhibitor/ARB if cleared by Nephrology # Chronic Atrial Fibrillation/Flutter His [id number] = 5 (CHF=1, HTN=1, Age>75=2, DM=1), which warrants anticoagulation. - Currently rate-controlled without medication - appreciate Cardiology recs - Resume apixaban once cleared by Cardiology # Type II Diabetes Mellitus - Correction scale insulin Mando Tidwell M.D.
[2022-06-18] MEDS: ATORVASTATIN 40 MG TAB PO SCH (20:58)
[2022-06-19] MEDS: PROMETHAZINE-DM 5 ML OSYR PO SCH ×4 (02:17→19:57)
[2022-06-19 03:12] LABS: Hematocrit 31.7 % (39.6-49.0); Lymphocytes % 12.5 % (15.3-44.8); MCV 99.1 fL (80-100); MPV 6.8 fL (7.6-11.3)
[2022-06-19 03:29] LABS: Potassium 4.3 mmol/L (3.5-5.1)
[2022-06-19 04:21] LABS: Anisocytosis 2+; Blood Morphology Comment NOTED (NOT SEEN); Platelet Estimate ADEQ; White Blood Cell Scan OK (OK)
[2022-06-19] MEDS: BENZONATATE 100 MG CAP PO PRN ×2 (05:10→19:57)
[2022-06-19] MEDS: METOPROLOL TAR 25 MG TAB PO SCH ×2 (05:10→17:53)
[2022-06-19] MEDS: PANTOPRAZOLE 40MG TABLET PO SCH ×2 (07:30→17:01)
[2022-06-19] MEDS: INSULIN -REGULAR HUMAN 50 UNIT/0.5 ML ML SQ SCH ×4 (07:30→21:16)
[2022-06-19] MEDS: FOLIC ACID 1 MG TABLET PO SCH (07:56)
[2022-06-19] MEDS: NEPRO SHAKE 237 ML CAN PO SCH ×2 (07:57→19:58)
[2022-06-19] MEDS: MONTELUKAST 10 MG TAB PO SCH (07:57)
[2022-06-19] MEDS: CETIRIZINE HCL 5 MG TABLET PO SCH (07:57)
[2022-06-19] MEDS: DOXYCYCLINE 100 MG CAP PO SCH ×2 (07:57→19:57)
[2022-06-19] MEDS ORDERED: HEPA 1000U/500MLS 2,000 UNIT/1,000 ML BAG IV ONE (11:16)
[2022-06-19] MEDS ORDERED: LIDOCAINE 1% 20 ML MDV ONE (11:16)
[2022-06-19] MEDS: EPOETIN ALFA 10,000 UNIT/ML VIAL IV SCH (13:00)
[2022-06-19] MEDS ORDERED: ASPIRIN 325 MG TAB ONE (14:34)
[2022-06-19] MEDS ORDERED: CLOPIDOGREL 75 MG TABLET ONE (14:34)
[2022-06-19] MEDS ORDERED: HEPARIN 5000 UNIT/ML 1 ML VIAL ONE (14:34)
[2022-06-19] MEDS ORDERED: VERAPAMIL HCL 10 MG/4 ML VIAL IV ONE (14:34)
[2022-06-19] MEDS ORDERED: HEPARIN 10,000 UNIT/10 ML VIAL IV ONE (14:34)
[2022-06-19] MEDS ORDERED: TICAGRELOR 90 MG TABLET PO ONE (14:34)
[2022-06-19] MEDS ORDERED: MIDAZOLAM HCL 2 MG/2 ML INJ ONE (14:34)
[2022-06-19] MEDS ORDERED: ATROPINE SULF 1 MG/10 ML SYR IV ONE (14:35)
[2022-06-19] MEDS ORDERED: FENTANYL CITR 100 MCG/2 ML ONE (14:35)
[2022-06-19] MEDS ORDERED: NA CHLORIDE 0.9% 500 ML ONE (14:42)
--- NOTE | 2022-06-19 15:00 | P.PN ---
Subjective Date of Service: 06/19/22 Primary Care Provider: Tong Chief Complaint: Hypoxia, CHF, ESRD Subjective: Other (Hasd LHC today. Received HD today.) Physical Examination - Vital Signs Temperature: 98 F Blood Pressure: 142/69 Pulse: 52 Respirations: 18 Pulse Ox (%): 91 - Physical Exam General: Other (appears as his stated age) HEENT: Atraumatic, Normocephalic Neck: Supple Respiratory: Other (symmetric chest expansion) Cardiovascular: No rubs, No murmurs Gastrointestinal: Soft and benign Musculoskeletal: No clubbing Integumentary: No warmth Neurological: Normal tone Urinary: Other (no bladder distention) External genitalia: Deferred Rectal: Deferred Assessment And Plan - Plan 1. End-stage renal disease, with volume overload. HD received today. Cont HD MWF sked. 2. Hypertension. Cont current med regimen. 3. Anemia of chronic kidney disease, status post transfusion. Continue LUANNE. 5. Acute on chronic respiratory failure 2/2 acute on chronic diastolic HF & loculated R pleural effusion. Per other services. HD as above. 6. NSTEMI. S/p LHC on 06/19, no PCI. Per Cardiology. 7. Chronic afib. Per Cardiology. 8. Renal osteodystrophy. Monitor Ca & Phos. 9. DM2. Mngt per primary team. Physician Review: Patient Assessed, Agree with Above Assessment and Plan
[2022-06-19] MEDS ORDERED: NITROGLYCERIN 0.4 MG/TAB SL PRN (17:39)
[2022-06-19] MEDS ORDERED: ACETAMINOPHEN 325 MG TABLET PO PRN (17:39)
--- NOTE | 2022-06-19 19:39 | PN ---
Date of Progress Note: 06/19/2022 Subjective: He was seen by bedside. No complaints today. Review of Systems: No chest pain, shortness of breath, orthopnea, cough, nausea, vomiting, or diarrhea. All other syste ms reviewed are negative. Physical Examination: Vital signs: Reviewed. Head and Neck: Pupils are equal, reactive to light. Intact eye movements. No JVD. No cervical lym phadenopathy. Neck: Supple. Thyroid is not enlarged. Lungs: Clear to auscultation bilaterally. No rhonchi, rales, or crackles. No accessory muscle use. Heart: Irregularly irregular. No extra sounds. Abdomen: Soft, nontender. Bowel sounds positive. No organomegaly. No masses or hernia. No rigidi ty or rebound. Extremities: No clubbing, cyanosis. Intact pulses. Skin: No rash. Neurologic: Alert, awake, oriented x3. No acute focal deficits appreciated. Investigations: All labs are reviewed. Assessment And Recommendations: 1.Elevated troponin with a positive stress test. Plan for coronary angiogram today. Further recomm endations to follow accordingly. Recommend aggressive cardiac risk factor modification, high-dose st atin, and baby aspirin. Blood pressure control. 2.Atrial fibrillation, rate is controlled. Continue current management. SR/MODL Voice ID: [id number] Report ID: [id number]
[2022-06-19] MEDS: ATORVASTATIN 40 MG TAB PO SCH (19:58)
--- NOTE | 2022-06-19 20:24 | P.PN ---
Subjective Date of Service: 06/19/22 Primary Care Provider: Tong Chief Complaint: Hypoxia, CHF, ESRD No acute events overnight. He reports that he feels well this morning. He denies any active chest pain or palpitations. Plan for left heart catheterization today. Review of Systems 10-point ROS is otherwise unremarkable General: Weakness (generalized) Physical Examination - Vital Signs Temperature: 98 F Blood Pressure: 131/56 Pulse: 60 Respirations: 16 Pulse Ox (%): 91 Assessment And Plan - Plan - Physical Exam General: Alert, In no apparent distress, Oriented x3 HEENT: Atraumatic, Mucous membr. moist/pink, Sclerae nonicteric Neck: JVD distended Respiratory: Diminished, Clear to auscultation bilaterally, without wheezes, rhonchi, or rales Cardiovascular: Regular rate/rhythm, Normal S1 S2, No gallops, No rubs, No murmurs, Edema (1+ BLE) Gastrointestinal: Normal bowel sounds, Soft and benign, Non-distended, No tenderness, No rebound, No guarding Musculoskeletal: No clubbing Integumentary: No rashes Neurological: Normal speech, Normal affect # Acute on Chronic Hypoxic Respiratory Failure - likely secondary to Acute on Chronic Decompensated Diastolic Congestive Heart Failure with Preserved Ejection Fraction and Moderate Loculated Right Pleural Effusion # End-Stage Renal Disease on MWF iHD # Chronic Obstructive Pulmonary Disease # Anemia of Chronic Kidney Disease - Evaluation thus far: - NT Pro-BNP = 137,644 - Chest x-ray = "small right pleural effusion. Mild bilateral interstitial lung opacities are probably chronic. Heart remains enlarged." - Transthoracic echocardiogram (reviewed with Dr. Henriquez) = normal LVEF 60- 65%, normal wall motion, moderate concentric LVH, severe diastolic dysfunction, severe pulmonary hypertension with RVSP > 60 mmHg, left atrial enlargement, mild TR, PI, MR, AI - CT chest/abdomen/pelvis = "moderate loculated right pleural effusion" - Management plan: - Consulted Nephrology and spoke with Dr. Sanchez - recommendations appr eciated - S/P 1 unit pRBC on 06/15/2022 - Consulted Cardiology and spoke with Dr. Henriquez - recommendations appreciated - Consulted Pulmonary Medicine and spoke with Dr. Hoang - recommendations appreciated - Volume removal via hemodialysis - Empiric antibiotics: Ceftriaxone + Doxycycline started given productive cough and concern for pulmonary infection - Does not currently meet sepsis criteria - Supplemental oxygen to maintain SpO2 > 92% - Daily weights - Strict I/O - Encouraged incentive spirometry - Cardiac/Renal diet, 1.5 L fluid restriction, 2 g Na restriction # Suspected Type II Non-ST Segment Elevation Myocardial Infarction (Demand Ischemia) secondary to above # Hypertension # Dyslipidemia - Evaluation thus far: - EKG: atrial fibrillation/flutter without STEMI criteria, trend - Serial troponin: 121.1 -> 129.8 -> 141.4 - Transthoracic echocardiogram (reviewed with Dr. Henriquez) = normal LVEF 60- 65%, normal wall motion, moderate concentric LVH, severe diastolic dysfunction, severe pulmonary hypertension with RVSP > 60 mmHg, left atrial enlargement, mild TR, PI, MR, AI - Management plan: - Consulted Cardiology and spoke with Dr. Henriquez - recommendations appreciated - Cardiac stress test (06/17/2022) = "small area of mild stress-induced ischemia suspected involving the LV apex." - Plan for left heart catheterization today - Continue aspirin + atorvastatin - Started metoprolol - Plan to start SEYMOUR-inhibitor/ARB if cleared by Nephrology # Chronic Atrial Fibrillation/Flutter His [id number] = 5 (CHF=1, HTN=1, Age>75=2, DM=1), which warrants anticoagulation. - Currently rate-controlled without medication - appreciate Cardiology recs - Resume apixaban once cleared by Cardiology # Type II Diabetes Mellitus - Correction scale insulin Mando Tidwell M.D.
[2022-06-19] MEDS: NA CHLORIDE 0.9% 1,000 ML IV SCH (21:00)
[2022-06-19 21:43] VITALS: O2SAT 99
--- NOTE | 2022-06-19 22:33 | OP ---
Date of Procedure: 06/19/2022 Surgeon: ABHINAV LEWIS Procedures Performed: 1.Selective coronary angiogram. 2.Left heart catheterization. Indication: Elevated troponin with abnormal stress test. Access: Left femoral artery 6-Barbadian closed with 6-Barbadian Angio-Seal. Complications: None. Estimated Blood Loss: Bleeding less than 20. Anesthesia: Total sedation time was 45 minutes, used fentanyl and Versed. Description Of Procedure: After risks, benefits, and alternatives were explained, the patient agreed to the procedure and signed informed consent. The patient was brought to the cardiac catheterizatio n laboratory and prepped and draped in usual sterile fashion. Then, we accessed the left femoral art jaqueline using micropuncture kit, ultrasound guidance and fluoroscopy and placed a 6-Barbadian Anderson sheat h and took a 6-Barbadian JL4 catheter into the aortic root, engaged left main, and took standard views. Then I exchanged for 6-Barbadian JR4 catheter, engaged the RCA, took standard views and then the cathet er was pushed over the wire into the LV, measured the LVEDP, and pullback did not record any gradient . Then the catheters were removed, sheath was removed, and a 6-Barbadian Angio-Seal was used for closur e with good hemostasis. Findings: 1.Left main: Ostial 40% stenosis, but is very large vessel. 2.LAD: Proximal diffuse 40% then mid 40% and then there are diffuse multiple lesions ranging from 3 0% to 40%, heavily calcified vessel. The diagonal branch D1 is very large as large as the LAD and mccarthy s also diffuse multiple lesions ranging between 30% and 50% with ADALBERTO-3 flow. 3.Left circumflex: There is proximal [employer], 100% totally occluded with collaterals coming from the LA D and from the RCA. 4.RCA: Very large and dominant with stent from the ostium all the way to the distal. There is a fo yahaira area of 40% to 50% stenosis in the mid segment, then becomes luminal irregularities. 5.Elevated LVEDP at 16 mmHg. Conclusion: 1.Moderate coronary artery disease, heavily calcified vessels with the exception of the chronic tota l occlusion in proximal left circumflex, but the artery is getting collaterals from the left anterior descending and the right coronary artery. 2.Elevated left ventricular end-diastolic pressure. Recommendations: Aggressive medical management. SR/MODL Voice ID: [id number] Report ID: [id number]
[2022-06-20] MEDS: HYDROCODONE/CHLORPHEN 5 ML/OSYR PO PRN (00:52)
[2022-06-20] MEDS: PROMETHAZINE-DM 5 ML OSYR PO SCH ×2 (02:44→09:39)
[2022-06-20] MEDS: BENZONATATE 100 MG CAP PO PRN ×2 (02:44→11:46)
[2022-06-20 06:03] LABS: Potassium 4.8 mmol/L (3.5-5.1)
[2022-06-20] MEDS: METOPROLOL TAR 25 MG TAB PO SCH (06:48)
[2022-06-20] MEDS: MONTELUKAST 10 MG TAB PO SCH (09:38)
[2022-06-20] MEDS: INSULIN -REGULAR HUMAN 50 UNIT/0.5 ML ML SQ SCH ×2 (09:38→11:46)
[2022-06-20] MEDS: PANTOPRAZOLE 40MG TABLET PO SCH (09:38)
[2022-06-20] MEDS: FOLIC ACID 1 MG TABLET PO SCH (09:39)
[2022-06-20] MEDS: NEPRO SHAKE 237 ML CAN PO SCH (09:39)
[2022-06-20] MEDS: CETIRIZINE HCL 5 MG TABLET PO SCH (09:39)
[2022-06-20] MEDS: DOXYCYCLINE 100 MG CAP PO SCH (09:39)
[2022-06-20] MEDS: NA CHLORIDE 0.9% 1,000 ML IV SCH (11:18)
--- NOTE | 2022-06-20 11:27 | P.DS ---
Admission Date: 06/16/22 Discharge Date: 06/20/22 Primary Care Provider: Tong Disposition: ROUTINE DISCHARGE Discharge Condition: GOOD Reason for Admission: Hypoxia, CHF, ESRD Consultations: 1. Nephrology 2. Cardiology 3. Pulmonary Medicine Procedures: - 06/19/2022 - Procedures Performed: 1. Selective coronary angiogram. 2. Left heart catheterization. Hospital Course: DIAGNOSES: # Acute on Chronic Hypoxic Respiratory Failure - likely secondary to Acute on Chronic Decompensated Diastolic Congestive Heart Failure with Preserved Ejection Fraction and Moderate Loculated Right Pleural Effusion # End-Stage Renal Disease on MWF iHD # Chronic Obstructive Pulmonary Disease # Acute on Chronic Anemia of Chronic Kidney Disease s/p 1 unit pRBCs # Type II Non-ST Segment Elevation Myocardial Infarction (Demand Ischemia) secondary to above # Hypertension # Dyslipidemia # Chronic Atrial Fibrillation/Flutter # Type II Diabetes Mellitus # Large Left and Moderate Right Inguinal Hernia # Left Adrenal Nodule (stable) # Moderate Hiatal Hernia # Renal Cysts # Calcified Lung Granuloma HOSPITAL COURSE: Mr. Guzman Mayers is a pleasant 77 year old male with a past medical history significant for chronic respiratory failure secondary to chronic obstructive pulmonary disease on 2.5 L home oxygen, end-stage renal disease on MWF iHD, chronic diastolic heart failure, type 2 diabetes mellitus, chronic atrial fibrillation/flutter, and peripheral arterial disease who was admitted to the [facility] on 06/14/2022 for shortness of breath. He was admitted to the Medicine service. Upon further evaluation, he was found to have an SpO2 of 80 % on room air. His NT-Pro BNP was 137,644. His EKG revealed atrial fibrillation/flutter without STEMI criteria. His serial troponin trend was 141.4 -> 129.8 -> 121.1. His initial chest x-ray revealed, "small right pleural effusion. Mild bilateral interstitial lung opacities are probably chronic. Heart remains enlarged." CT chest/abdomen/pelvis revealed, "moderate loculated right pleural effusion." He was diagnosed with acute on chronic hypoxic respiratory failure which was thought to be secondary to acute on chronic decompensated diastolic heart failure. Nephrology and Cardiology were consulted, and he was evaluated by Dr. Randle and Dr. Henriquez, respectively. Over the course of his hospitalization, he received several sessions of dialysis for volume removal, with significant improvement of his respiratory status. His transthoracic echocardiogram revealed, "1. normal left ventricular ejection fraction 60-65% with normal wall motion 2. moderate concentric left ventricular hypertrophy 3. severe diastolic dysfunction 4. severe pulmonary hypertension with right ventricular systolic pressure greater than 60 mmHg 5. left atrial enlargement 6. mild tricuspid regurgitation, pulmonic insufficiency, mitral regurgitation, aortic insufficiency." Repeat chest x-ray revealed, "right pleural effusion has increased in size. It is moderate and loculated. Right basilar lung opacities. Left lung appears clear. Heart remains enlarged." Pulmonary Medicine was consulted and he was evaluated by Dr. Hoang. He felt that the pleural effusion was chronic and did not necessitate any further evaluation. Dr. Hoang has cleared him for discharge from his perspective. Given his elevated troponin, a nuclear stress test was obtained, which revealed, "small area of mild stress-induced ischemia suspected involving the LV apex." On 06/19/2022, he underwent a left cardiac catheterization, which revealed non- obstructive coronary artery disease. Dr. Henriquez has cleared him for discharge with outpatient follow-up. From a Nephrology standpoint, I spoke with Dr. Randle, who has cleared him for discharge with hemodialysis scheduled on 06/22/2022. This morning, Mr. Mayers states that he feels well and would like to be discharged home. Of note, he was found to have several incidental findings on his CT scan including a left adrenal nodule, moderate hiatal hernia, bilateral inguinal hernias, renal cyst, and a calcified lung granuloma. I counseled him on these findings and advised that he follow-up with Dr. Fortune regarding further evaluation. He verbalized understanding and agreed to make this appointment. Additionally, we had an extensive discussion regarding his stroke risk with atrial fibrillation and the general recommendation of anticoagulation. However, he endorsed that he has required 8 blood transfusions in the last year and is currently being evaluated for an occult gastrointestinal bleed. Through shared decision-making, we elected to hold off on anticoagulation at this time. He was advised to discuss anticoagulation with Dr. Fortune and Dr. Henriquez after his gastroenterologic evaluation is completed. On 06/20/2022, he was seen on morning rounds and deemed medically stable for discharge. He was discharged with instructions to schedule follow-up appointments with his PCP (Dr. Fortune), with Pulmonary (Dr. Hoang), with Nephrology (Dr. Sanchez), and with Cardiology (Dr. Henriquez). He was given a prescription for metoprolol. He was given the opportunity to ask questions and reported no further questions. Furthermore, all questions were answered to the best of my ability. Today, I personally spent 35 minutes on his case, of which greater than 50% of the time was spent in patient education, counseling, and coordination of care as described above. - Physical Exam General: Alert, In no apparent distress, Oriented x3 HEENT: Atraumatic, Mucous membr. moist/pink, Sclerae nonicteric Neck: JVD distended Respiratory: Diminished, Clear to auscultation bilaterally, without wheezes, rhonchi, or rales Cardiovascular: Regular rate/rhythm, Normal S1 S2, No gallops, No rubs, No murmurs, Edema (trace BLE) Gastrointestinal: Normal bowel sounds, Soft and benign, Non-distended, No tenderness, No rebound, No guarding Musculoskeletal: No clubbing Integumentary: No rashes Neurological: Normal speech, Normal affect Vital Signs/Physical Exam: Temp Pulse Resp BP Pulse Ox 97.8 F 63 16 148/74 H 98 06/20/22 08:00 06/20/22 08:00 06/20/22 08:00 06/20/22 08:00 06/20/22 08:00 Laboratory Data at Discharge: WBC 7.60 K/uL (4.3-10.9) 06/19/22 02:24 Hgb 10.8 g/dL (13.6-17.9) L 06/19/22 02:24 Hct 31.7 % (39.6-49.0) L 06/19/22 02:24 Plt Count 282 K/uL (152-406) 06/19/22 02:24 PT 15.9 SECONDS (9.5-12.5) H 06/14/22 15:35 INR 1.45 06/14/22 15:35 Sodium 135 mmol/L (136-145) L 06/20/22 05:12 Potassium 4.8 mmol/L (3.5-5.1) 06/20/22 05:12 BUN 43 mg/dL (7-18) H 06/20/22 05:12 Creatinine 4.36 mg/dL (0.70-1.30) H 06/20/22 05:12 Glucose 199 mg/dL (74-106) H 06/20/22 05:12 Phosphorus 3.8 mg/dL (2.5-4.9) 06/15/22 03:04 Magnesium 1.9 mg/dL (1.6-2.4) 06/15/22 03:04 Home Medications: RX: Atorvastatin Calcium 1 tab PO BEDTIME 10/16/21 RX: Insulin Glargine,Hum.rec.anlog [Basaglar Kwikpen U-100] 50 unit SQ DAILY 10/16/21 RX: Sertraline HCl 50 mg PO DAILY 05/26/22 RX: Aspirin [Aspirin EC 81 MG] 81 mg PO DAILY #30 tab 05/28/22 RX: Nepro Shake [Nepro*] 237 ml PO BID #60 can 05/28/22 RX: Metoprolol Tartrate [Lopressor*] 12.5 mg PO BID 6AM 6PM #30 tab 06/20/22 New Medications: RX: Metoprolol Tartrate [Lopressor*] 12.5 mg PO BID 6AM 6PM #30 tab Physician Discharge Instructions: 1. Please call and schedule a follow-up appointment with your PCP (Dr. Fortune) in 3-5 days - Please discuss the abnormalities on your CT scan (kidney cyst, spot on adrenal gland, hernias) with Dr. Fortune to decide if any further evaluation is needed 2. Please call and schedule a follow-up appointment with Cardiology (Dr. Henriquez) in 5-7 days - Normally, we would start a blood thinner for you for stroke prevention due to your atrial fibrillation; however, since you have required multiple blood transfusions, we have decided to hold off on blood thinners for now - Please discuss the topic of blood thinners with Dr. Henriquez to see if and when would be a good time to start you on a blood thinner 3. Please call and schedule a follow-up appointment with Pulmonology (Dr. Hoang) in 5-7 days 4. Please call and schedule a follow-up appointment with Nephrology (Dr. Sanchez) in 5-7 days Followup: Jaron Hoang MD [ACTIVE - CAN ADMIT] - Anita Sanchez MD [ACTIVE - CAN ADMIT] - Naveed Fortune DO [Primary Care Provider] - [place] Henriquez MD [ACTIVE - CAN ADMIT] - 1 Week Time spent managing pt's care (in minutes): 35
[2022-06-20 12:16] VITALS: BP 129/57; TEMP 97.9
--- NOTE | 2022-06-20 22:44 | PN ---
Date of Progress Note: 06/20/2022 The patient has multiple medical problems including end-stage renal disease, congestive heart failure , coronary artery disease. He presented to the hospital with productive cough. He is on antibiotics and followed by Pulmonary physician. The patient has history of COPD and COPD exacerbation. Patien t underwent cardiac catheterization, which showed coronary artery disease, diffuse, left main 40% ost ial stenosis, LAD diffuse multiple lesion ranging from 30% to 40%, and the left circumflex 100% totally occluded with collaterals coming from LAD and from the RCA. Patient had dialysis done yesterday for metabolic clearance. Today, blood work was obtained and showed potassium 4.8, sodium 1 35, chloride 99, CO2 32, BUN 33, creatinine 4.36, calcium 9.2. Patient denies chest pain, palpitatio n. He has nonproductive cough today and he is medicated for cough with Tessalon and received nebuliz er treatment. Physical Examination: General: Not in acute distress. Lungs: Normal respiratory effort. Heart: S1 and S2. Abdomen: Soft. Extremities: No edema. Impression And Plan: 1.End-stage renal disease, fluid overload. Patient was treated with dialysis and volemia is control led. Continue p.o. fluid restriction and continue to challenge dry weight and adjust ultrafiltration according to volemia status. 2.Anemia of chronic kidney disease. Hemoglobin level is in the stable range. The patient received blood transfusion during this admission and over the last several days hemoglobin level is ranging fr om 9.9 to 10.8. Continue LUANNE. 3.Renal osteodystrophy. Continue renal diet and binders. 4.Possible pneumonia. Antibiotics by Pulmonary team. EB/MODL Voice ID: [id number] Report ID: [id number]
== END 2022-06-20 14:30 | disposition home or self-care (01) | DRG 280 ==
LOC: ER 14:32 → ERHOLD 18:37 → 2ND 20:20 → OBSVTOIN 06-16 10:33
PROVIDERS: ADMIT Hospitalist; ATTEND Internal Medicine
PROC: 5A1D70Z Performance of Urinary Filtration, Intermittent, Less than 6 Hours Per Day (ICD-10-PCS; 2022-06-15)
PROC: 30233N1 Transfusion of Nonautologous Red Blood Cells into Peripheral Vein, Percutaneous Approach (ICD-10-PCS; 2022-06-15)
PROC: 4A023N7 Measurement of Cardiac Sampling and Pressure, Left Heart, Percutaneous Approach (ICD-10-PCS; principal; 2022-06-19)
PROC: B2111ZZ Fluoroscopy of Multiple Coronary Arteries using Low Osmolar Contrast (ICD-10-PCS; 2022-06-19)
DX: I13.2 Hypertensive heart and chronic kidney disease with heart failure and with stage 5 chronic kidney disease, or end stage renal disease (principal); I50.33 Acute on chronic diastolic (congestive) heart failure; I21.A1 Myocardial infarction type 2; N18.6 End stage renal disease; J96.21 Acute and chronic respiratory failure with hypoxia; I48.92 Unspecified atrial flutter; I48.20 Chronic atrial fibrillation, unspecified; E11.22 Type 2 diabetes mellitus with diabetic chronic kidney disease; E11.65 Type 2 diabetes mellitus with hyperglycemia; E11.51 Type 2 diabetes mellitus with diabetic peripheral angiopathy without gangrene; D63.1 Anemia in chronic kidney disease; E78.5 Hyperlipidemia, unspecified; N25.0 Renal osteodystrophy; I27.20 Pulmonary hypertension, unspecified; E27.9 Disorder of adrenal gland, unspecified; N28.1 Cyst of kidney, acquired; J84.10 Pulmonary fibrosis, unspecified; K40.90 Unilateral inguinal hernia, without obstruction or gangrene, not specified as recurrent; J44.9 Chronic obstructive pulmonary disease, unspecified; Z88.5 Allergy status to narcotic agent; Z88.8 Allergy status to other drugs, medicaments and biological substances; Z99.2 Dependence on renal dialysis; Z79.4 Long term (current) use of insulin; Z99.81 Dependence on supplemental oxygen; Z86.73 Personal history of transient ischemic attack (TIA), and cerebral infarction without residual deficits; Z79.82 Long term (current) use of aspirin; Z87.891 Personal history of nicotine dependence; Z89.422 Acquired absence of other left toe(s); Z79.899 Other long term (current) drug therapy; Z20.822 Contact with and (suspected) exposure to COVID-19
CPT/HCPCS: 0240U; 36415; 71045; 71046; 71250; 74176; 76937; 78452; 80048; 80069; 80202; 82550; 82947; 83605; 83735; 83880; 84443; 84484; 85014; 85018; 85025; 85610; 86850; 86900; 86901; 87040; 87070; 87205; 90935; 93005; 93017; 93306; 93458; 94760; 97110; 97161; 97530; 99284; A9500; C1893; G0269; G0378; J0461; J1644; J1815; J2001; J2250; J2785; J3010; J7030; J7040; J7512; P9016; Q5105; Q9966

== ENCOUNTER 2022-07-06 15:24 | Emergency (ER) | payer OTHER, BC ==
--- OUTSIDE RECORDS SUMMARY | 2022-07-06 15:30 | XMS REPORT | Continuity of Care Document ---
:1945 Author Organization [facility] t Address [address] [place] [address] Care Team Providers Name Role Phone Naveed Fortune Attending Clinician Unavailable [id number] Attending Clinician Unavailable CAREY LONG Attending Clinician Unavailable CAMELIA MANCILLA Attending Clinician Unavailable RONNIE WHITNEY Attending Clinician Unavailable MONSE VELAZQUEZ Attending Clinician Unavailable CHILANGO ARMSTRONG NATASHA Attending Clinician Unavailable [id number] Admitting Clinician Unavailable CAMELIA MANCILLA Admitting Clinician Unavailable MONSE VELAZQUEZ Admitting Clinician Unavailable CHILANGO ARMSTRONG NATASHA Admitting Clinician Unavailable Payers Payer Name Policy Type Policy Number Effective Date Expiration Date S kristin MEDICARE PART A [id number] 2011 AND B 00:00:00 [employer] Blue 6 [id number] 2014 [facility] Shield of [place] 00:00:00 - [facility] [id number] BCTX BCTI [id number] MEDICARE MB [id number] 2011 [facility] NOVITAS 00:00:00 - [facility] MEDICARE MB [id number] 2011 [facility] NOVITAS 00:00:00 - [facility] MEDICARE MB [id number] 2011 [facility] NOVITAS 00:00:00 - [facility] Problems Condition Condition Condition Status Onset Resolution Last Treating Co mments Source Name Details Category Date Date Treatment Clinician Date [id number] Other Problem Common obesity Spirit due to - [facility]I excess calories [facility] [id number] Metabolic Problem Com mon syndrome [facility] - [facility] [id number] Body mass Problem Com mon index Spirit [BMI] - CHI 30.0-30.9, [facility] [id number] Frailty Problem Commo n syndrome Spirit in - [facility]I geriatric [facility] 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 Chronic Chronic Problem Common obstructiv obstructiv Sp jerome e lung e - [facility] disease [facility] type [id number] Heart Problem Common failure, Spirit congestive - CHI , etiology unknown [facility] [id number] Constipati Problem Com mon on, Spirit unspecifie - CHI d constipati [facility] [id number] Memory Problem Common impairment Spirit of gradual - CHI onset [facility] [id number] HTN, goal Problem Comm on below Spirit 130/80 - [facility] [id number] Anemia of Problem Com mon chronic Spirit disease - [facility] [id number] MCC Problem Com mon (current) [facility] use of - CHI insulin [facility] [id number] Benign Problem Common prostatic [facility] hyperplasi - [facility] a without [facility] urinary Medical tract Center symptoms Hypertroph Obstructiv Problem C ommon ic e Spirit 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 [facility] Hypertensi Hypertensi Problem C ommon ve [...] gabapent Active Unknown Commo n in in [facility] codeine codeine Active Unknown Common [facility] Social History Social Habit Start Date Stop Date Quantity Comments Source History of Tobacco Use Co mmon [facility] Sex Assigned At Com mon [facility] Smoking Status Start Date Stop Date Source Former Smoker 2022-05-12 00:00:00 2022-05-12 00:00:00 Common S pirit [facility] Medications Ordered Filled Start Stop Current Ordering [...] 1-15 [facility] 00:00: - CHI 00 [facility] BD BD 2018- Yes Naveed 1 needle Common Ultra-Fine Ultra-Fine 0-09 Fortune with Sp jerome Christina Pen Christina Pen 00:00: Basaglar - CHI [place] 00 [facility] BD BD 2018-05 No QD BD Ultra-Fine Ultra-Fine 0-09 Ultra-Fine Christina Pen Christina Pen 00:00: Christina Pen [place] 4mm [place] 4mm 00 [place] x 32Gm x 32Gm 4mm x 32Gm BD BD 2018- No QD BD Ultra-Fine Ultra-Fine 0-09 Ultra-Fine Christina Pen Christina Pen 00:00: Christina Pen [place] 4mm [place] 4mm 00 [place] x 32Gm x 32Gm 4mm x 32Gm BD BD 2018- No QD BD Ultra-Fine Ultra-Fine 0-09 Ultra-Fine Christina Pen Christina Pen 00:00: Christina Pen [place] 4mm [place] 4mm 00 [place] x 32Gm x 32Gm 4mm x 32Gm BD BD 2018- No QD BD Ultra-Fine Ultra-Fine 0-09 Ultra-Fine Christina Pen Christina Pen 00:00: Christina Pen [place] 4mm [place] 4mm 00 [place] x 32Gm x 32Gm 4mm x 32Gm [facility] 2018-05 No QD BD Ultra-Fine Ultra-Fine 0-09 Ultra-Fine Christina Pen Christina Pen 00:00: Christina Pen [place] 4mm [place] 4mm 00 [place] x 32Gm x 32Gm 4mm x 32Gm [facility] 2018- No QD BD Ultra-Fine Ultra-Fine 0-09 Ultra-Fine Christina Pen Christina Pen 00:00: Christina Pen [place] 4mm [place] 4mm 00 [place] x 32Gm x 32Gm 4mm x 32Gm [facility] 2018- No QD BD Ultra-Fine Ultra-Fine 0-09 Ultra-Fine Christina Pen Christina Pen 00:00: Christina Pen [place] 4mm [place] 4mm 00 [place] x 32Gm x 32Gm 4mm x 32Gm [facility] 2018- No QD BD Ultra-Fine Ultra-Fine 0-09 Ultra-Fine Christina Pen Christina Pen 00:00: Christina Pen [place] 4mm [place] 4mm 00 [place] x 32Gm x 32Gm 4mm x 32Gm [facility] 2018- No QD BD Ultra-Fine Ultra-Fine 0-09 Ultra-Fine Christina Pen Christina Pen 00:00: Christina Pen [place] 4mm [place] 4mm 00 [place] x 32Gm x 32Gm 4mm x 32Gm [facility] 2018-05 No QD BD Ultra-Fine Ultra-Fine 0-09 Ultra-Fine Christina Pen Christina Pen 00:00: Christina Pen [place] 4mm [place] 4mm 00 [place] x 32Gm x 32Gm 4mm x 32Gm [facility] 2018- No QD BD Ultra-Fine Ultra-Fine 0-09 Ultra-Fine Christina Pen Christina Pen 00:00: Christina Pen [place] 4mm [place] 4mm 00 [place] x 32Gm x 32Gm 4mm x 32Gm [facility] 2018- No QD BD Ultra-Fine Ultra-Fine 0-09 Ultra-Fine Christina Pen Christina Pen 00:00: Christina Pen [place] 4mm [place] 4mm 00 [place] x 32Gm x 32Gm 4mm x 32Gm [facility] 2018- No QD BD Ultra-Fine Ultra-Fine 0-09 Ultra-Fine Christina Pen Christina Pen 00:00: Christina Pen [place] 4mm [place] 4mm 00 [place] x 32Gm x 32Gm 4mm x 32Gm [facility] 2018- No QD BD Ultra-Fine Ultra-Fine 0-09 Ultra-Fine Christina Pen Christina Pen 00:00: Christina Pen [place] 4mm [place] 4mm 00 [place] x 32Gm x 32Gm 4mm x 32Gm [facility] 2018-05 No QD BD Ultra-Fine Ultra-Fine 0-09 Ultra-Fine Christina Pen Christina Pen 00:00: Christina Pen [place] 4mm [place] 4mm 00 [place] x 32Gm x 32Gm 4mm x 32Gm [facility] 2018-05 No QD BD Ultra-Fine Ultra-Fine 0-09 Ultra-Fine Christina Pen Christina Pen 00:00: Christina Pen [place] 4mm [place] 4mm 00 [place] x 32Gm x 32Gm 4mm x 32Gm [facility] 2018-05 No QD BD Ultra-Fine Ultra-Fine 0-09 Ultra-Fine Christina Pen Christina Pen 00:00: Christina Pen [place] 4mm [place] 4mm 00 [place] x 32Gm x 32Gm 4mm x 32Gm [facility] 2018-05 No QD BD Ultra-Fine Ultra-Fine 0-09 Ultra-Fine Christina Pen Christina Pen 00:00: Christina Pen [place] 4mm [place] 4mm 00 [place] x 32Gm x 32Gm 4mm x 32Gm [facility] 2018-05 No QD BD Ultra-Fine Ultra-Fine 0-09 Ultra-Fine Christina Pen Christina Pen 00:00: Christina Pen [place] 4mm [place] 4mm 00 [place] x 32Gm x 32Gm 4mm x 32Gm [facility] 2018-05 No QD BD Ultra-Fine Ultra-Fine 0-09 Ultra-Fine Christina Pen Christina Pen 00:00: Christina Pen [place] 4mm [place] 4mm 00 [place] x 32Gm x 32Gm 4mm x 32Gm [facility] 2018-05 No QD BD Ultra-Fine Ultra-Fine 0-09 Ultra-Fine Christina Pen Christina Pen 00:00: Christina Pen [place] 4mm [place] 4mm 00 [place] x 32Gm x 32Gm 4mm x 32Gm Tums E-X Tums E-X Yes Naveed 1 tablet C ommon 750 750 Fortune [facility] Basaglar Basaglar Yes Naveed 52 Units C ommon KwikPen KwikPen [facility] PreserVisio PreserVisio Yes Naveed as Common n AREDS n AREDS Fortune directed Spir it [facility] Citalopram Citalopram Yes Naveed 1 tablet Common Hydrobromid Hydrobromid [facility] e e [facility] Stool Stool Yes Naveed not Common Softener Softener Fortune defined Spi rit [facility] Gentle Gentle Yes Naveed 1 tablet Commo n Laxative Laxative Fortune as needed S pirit [facility] Atorvastati Atorvastati Yes Naveed 1 tablet Common n Calcium n Calcium Fortune [facility] Contour Contour Yes Naveed USE 3 Common Test Test Fortune TIMES A [facility] Eliquis 2.5 Eliquis 2.5 Yes Naveed 1 tablet Common mg mg Fortune [facility] Multivitami Multivitami Yes Naveed as Common n Adult n Adult Fortune directed [facility] Carvedilol Carvedilol Yes Naveed TAKE 1 Common Fortune TABLET BY [facility] MOUTH - CHI TWICE A DAY ON [facility] Medical [facility] Center Atorvastati Atorvastati Yes Naveed TAKE 1 Common n Calcium n Calcium Fortune TABLET BY [facility] MOUTH - CHI EVERY DAY [facility] GlipiZIDE GlipiZIDE Yes Naveed 1 tablet Common Fortune [facility] Basaglar Basaglar Yes Naveed 50 Units C ommon KwikPen KwikPen Fortune [facility] Advair HFA Advair HFA No 2{puffs BID [...] Dexcom G6 Dexcom G6 No Dexcom G6 C Programmer - C Programmer - C Programmer - Carvedilol Carvedilol No Carvedilol 12.5 MG [...] Dexcom G6 Dexcom G6 No Dexcom G6 C Programmer - C Programmer - C Programmer - glipiZIDE 5 glipiZIDE 5 No 1{table [...] Dexcom G6 Dexcom G6 No Dexcom G6 C Programmer - C Programmer - C Programmer - Ipratropium Ipratropium No Ipratropiu -Albuterol -Albuterol [...] Dexcom G6 Dexcom G6 No Dexcom G6 C Programmer - C Programmer - C Programmer - Gentle Gentle No 1{table QD Gentle [...] Dexcom G6 Dexcom G6 No Dexcom G6 C Programmer - C Programmer - C Programmer - PreserVisio PreserVisio No PreserVisi n AREDS [...] Dexcom G6 Dexcom G6 No Dexcom G6 C Programmer - C Programmer - C Programmer - Advair HFA Advair HFA No 2{puffs [...] Dexcom G6 Dexcom G6 No Dexcom G6 C Programmer - C Programmer - C Programmer - Advair HFA Advair HFA No 2{puffs [...] Dexcom G6 Dexcom G6 No Dexcom G6 C Programmer - C Programmer - C Programmer - Advair HFA Advair HFA No 2{puffs [...] Dexcom G6 Dexcom G6 No Dexcom G6 C Programmer - C Programmer - C Programmer - Atorvastati Atorvastati No 1{table QD Atorvastat [...] Dexcom G6 Dexcom G6 No Dexcom G6 C Programmer - C Programmer - C Programmer - Atorvastati Atorvastati No Atorvastat n Calcium [...] Dexcom G6 Dexcom G6 No Dexcom G6 C Programmer - C Programmer - C Programmer - Atorvastati Atorvastati No Atorvastat n Calcium [...] FluAD 2021-03-30 Completed [facility] 13:13:00 - [facility] FluAD FluAD 2021-03-30 Completed [facility] 13:13:00 - [facility] FluAD FluAD 2021-03-30 Completed [facility] 13:13:00 - [facility] FluAD FluAD 2021-03-30 Completed [facility] 13:13:00 - [facility] FluAD FluAD 2021-03-30 Completed [facility] 13:13:00 - [facility] FluAD FluAD 2021-03-30 Completed [facility] 13:13:00 - [facility] FluAD FluAD 2021-03-30 Completed [facility] 13:13:00 - [facility] FluAD FluAD 2021-03-30 Completed [facility] 13:13:00 - [facility] FluAD FluAD 2021-03-30 Completed [facility] 13:13:00 - [facility] FluAD FluAD 2021-03-30 Completed [facility] 13:13:00 - [facility] FluAD FluAD 2021-03-30 Completed [facility] 13:13:00 - [facility] FluAD FluAD 2021-03-30 Completed [facility] 13:13:00 - [facility] FluAD FluAD 2021-03-30 Completed [facility] 13:13:00 - [facility] FluAD FluAD 2021-03-30 Completed [facility] 13:13:00 - [facility] FluAD FluAD 2021-03-30 Completed [facility] 13:13:00 - [facility] FluAD FluAD 2021-03-30 Completed [facility] 13:13:00 - [facility] FluAD FluAD 2021-03-30 Completed [facility] 13:13:00 - [facility] FluAD FluAD 2021-03-30 Completed [facility] 13:13:00 - [facility] FluAD FluAD 2021-03-30 Completed [facility] 13:13: [facility] COVID-19 Vaccine COVID-19 Vaccine 2020-08-19 Completed Co mmon [facility] (Andrea) (Andrea) 09:17:00 [facility] COVID-19 Vaccine COVID-19 Vaccine 2020-08-19 Completed Co mmon [facility] (Andrea) (Andrea) 09:17:00 [facility] COVID-19 Vaccine COVID-19 Vaccine 2020-08-19 Completed Co mmon [facility] (Andrea) (Andrea) 09:17:00 [facility] COVID-19 Vaccine COVID-19 Vaccine 2020-08-19 Completed Co mmon [facility] (Andrea) (Andrea) 09:17:00 [facility] COVID-19 Vaccine COVID-19 Vaccine 2020-08-19 Completed Co mmon [facility] (Andrea) (Andrea) 09:17: [facility] COVID-19 Vaccine COVID-19 Vaccine 2020-08-19 Completed Co mmon [facility] (Andrea) (Andrea) 09:17:00 - [facility] COVID-19 Vaccine COVID-19 Vaccine 2020-08-19 Completed Co mmon [facility] (Andrea) (Andrea) 09:17:00 - [facility] COVID-19 Vaccine COVID-19 Vaccine 2020-08-19 Completed Co mmon [facility] (Andrea) (Andrea) 09:17:00 - [facility] COVID-19 Vaccine COVID-19 Vaccine 2020-08-19 Completed Co mmon [facility] (Andera) (Andrea) 09:17:00 - [facility] COVID-19 Vaccine COVID-19 Vaccine 2020-08-19 Completed Co mmon [facility] (Andrea) (Andrea) 09:17:00 [facility] COVID-19 Vaccine COVID-19 Vaccine 2020-08-19 Completed Co mmon [facility] (Andrea) (Andrea) 09:17:00 - [facility] COVID-19 Vaccine COVID-19 Vaccine 2020-08-19 Completed Co mmon [facility] (Andrea) (Andrea) 09:17:00 - [facility] COVID-19 Vaccine COVID-19 Vaccine 2020-08-19 Completed Co mmon [facility] (Andrea) (Andrea) 09:17:00 [facility] COVID-19 Vaccine COVID-19 Vaccine 2020-08-19 Completed Co mmon [facility] (Andrea) (Andrea) 09:17:00 [facility] COVID-19 Vaccine COVID-19 Vaccine 2020-08-19 Completed Co mmon [facility] (Andrea) (Andrea) 09:17:00 [facility] COVID-19 Vaccine COVID-19 Vaccine 2020-08-19 Completed Co mmon [facility] (Andrea) (Andrea) 09:17:00 [facility] COVID-19 Vaccine COVID-19 Vaccine 2020-08-19 Completed Co mmon [facility] (Andrea) (Andrea) 09:17:00 [facility] COVID-19 Vaccine COVID-19 Vaccine 2020-08-19 Completed Co mmon [facility] (Andrea) (Andrea) 09:17:00 [facility] COVID-19 Vaccine COVID-19 Vaccine 2020-08-19 Completed Co m[facility] (Andrea) (Andrea) 09:17:00 - [facility] COVID-19 Vaccine COVID-19 Vaccine 2020-08-19 Completed Co mmon [facility] (Andrea) (Andrea) 09:17:00 - [facility] COVID-19 Vaccine COVID-19 Vaccine 2020-08-19 Completed Co mmon [facility] (Andrea) (Andrea) 09:17:00 - [facility] Vital Signs Vital Name Observation Time Observation Value Comments Source height 2022-02-17 15:00:00 70 [in_i] [facility] weight 2022-02-17 15:00:00 208 [lb_av] [facility] temperature 2022-02-17 15:00:00 98.1 [degF] [facility] bmi 2022-02-17 15:00:00 29.84 kg/m2 [facility] blood pressure 2022-02-17 15:00:00 121 mm[Hg] [facility] - systolic [facility] blood pressure 2022-02-17 15:00:00 61 mm[Hg] [facility] - diastolic [facility] height 2022-01-06 14:30:00 70 [in_i] [facility] weight 2022-01-06 14:30:00 208 [lb_av] [facility] bmi 2022-01-06 14:30:00 29.84 kg/m2 [facility] blood pressure 2022-01-06 14:30:00 137 mm[Hg] [facility] - systolic [facility] blood pressure 2022-01-06 14:30:00 79 mm[Hg] [facility] - diastolic [facility] height 2021-11-03 09:45:00 70 [in_i] [facility] weight 2021-11-03 09:45:00 210 [lb_av] [facility] bmi 2021-11-03 09:45:00 30.13 kg/m2 Common S pirit - [facility] blood pressure 2021-11-03 09:45:00 144 mm[Hg] [facility] - systolic [facility] blood pressure 2021-11-03 09:45:00 86 mm[Hg] [facility] - diastolic [facility] height 2021-07-28 14:10:00 70 [in_i] Common S pirit - [facility] weight 2021-07-28 14:10:00 211.8 [lb_av] Common [facility] temperature 2021-07-28 14:10:00 97.5 [degF] [facility] bmi 2021-07-28 14:10:00 30.39 kg/m2 [facility] oximetry 2021-07-28 14:10:00 93 % Common S [facility] respiratory rate 2021-07-28 14:10:00 16 /min Comm on [facility] blood pressure 2021-07-28 14:10:00 134 mm[Hg] [facility] - systolic [facility] blood pressure 2021-07-28 14:10:00 63 mm[Hg] Common [facility] - diastolic [facility] height 2021-07-28 13:20:00 70 [in_i] Common S [facility] weight 2021-07-28 13:20:00 211.8 [lb_av] Common [facility] temperature 2021-07-28 13:20:00 97.5 [degF] Common S pirit [facility] bmi 2021-07-28 13:20:00 30.39 kg/m2 Common S [facility] oximetry 2021-07-28 13:20:00 93 % Common S [facility] respiratory rate 2021-07-28 13:20:00 16 /min Comm on [facility] blood pressure 2021-07-28 13:20:00 134 mm[Hg] [facility] - systolic [facility] blood pressure 2021-07-28 13:20:00 62 mm[Hg] [facility] - diastolic [facility] height 2021-04-28 13:10:00 70 [in_i] [facility] weight 2021-04-28 13:10:00 215.9 [lb_av] [facility] temperature 2021-04-28 13:10:00 97.3 [degF] [facility] bmi 2021-04-28 13:10:00 30.98 kg/m2 [facility] oximetry 2021-04-28 13:10:00 95 % [facility] respiratory rate 2021-04-28 13:10:00 17 /min Comm on [facility] blood pressure 2021-04-28 13:10:00 121 mm[Hg] Common [facility] - systolic [facility] blood pressure 2021-04-28 13:10:00 60 mm[Hg] Common [facility] - diastolic [facility] height 2021-03-12 09:30:00 70 [in_i] [facility] weight 2021-03-12 09:30:00 211.4 [lb_av] [facility] temperature 2021-03-12 09:30:00 97.7 [degF] [facility] bmi 2021-03-12 09:30:00 30.33 kg/m2 [facility] S [facility] oximetry 2021-03-12 09:30:00 95 % Common S [facility] respiratory rate 2021-03-12 09:30:00 16 /min Comm on [facility] blood pressure 2021-03-12 09:30:00 132 mm[Hg] Common [facility] - systolic [facility] blood pressure 2021-03-12 09:30:00 67 mm[Hg] Common [facility] diastolic [facility] Procedures Procedure Date / Time Performed Performing Clinician Lupe bowie [id number] 2021-10-18 00:00:00 [facility] Encounters Start End Encounter Admission Attending Care Care Encounter Source Date/Time Date/Time Type Type Clinicians Facility Department ID 2022-05-20 Outpatient [facility], STLMLC STLMLC [id number] Common 08:24:01 Naveed [facility] 2022-05-15 Outpatient [facility], STLMLC STLMLC [id number] Common 08:53:00 Naveed [id number] [facility] 2022-05-11 Outpatient [facility], STLMLC STLMLC [id number] Common 14:49:00 Naveed [id number] [facility] 2022-05-08 Outpatient [facility], STLMLC STLMLC [id number] Common 10:15:01 Naveed [id number] [facility] 2022-05-07 Outpatient [facility], STLMLC STLMLC [id number] Common 11:53:00 Naveed [id number] [facility] 2022-02-18 Outpatient [facility], STLMLC STLMLC [id number] Common 12:05:01 Naveed [facility] 2022-01-01 Outpatient [facility], STLMLC STLMLC [id number] Common 10:24:01 Naveed [facility] 2021-12-29 Outpatient [facility], STLMLC STLMLC [id number] Common 08:34:00 Naveed [facility] 2021-12-16 Outpatient [facility] [id number] NE 14:42:[id number] [place] [address] 2021-11-19 Outpatient [facility], STLMLC STLMLC [id number] Common 08:42:01 Naveed [facility] 2021-11-03 Outpatient [facility], STLMLC STLMLC [id number] Common 10:33:01 Naveed [facility] 2021-10-15 Outpatient 3 [id number] ENCPL REF [id number] [facility] 08:19:25 0518 [facility] 2021-10-14 Outpatient 3 [id number] ENCPL REF [id number] [facility] 11:59:03 0517 [facility] itation Lynsey camargo 2021-06-25 Outpatient [facility], STLMLC STLMLC [id number] Common 14:22:06 Naveed [id number] [facility] 2021-06-25 Outpatient [facility], STLMLC STLMLC [id number] Common 14:13:51 Naveed [id number] [facility] 2021-06-25 Outpatient [facility], STLMLC STLMLC [id number] Common 13:38:12 Naveed [id number] [facility] 2021-06-25 Outpatient [facility], STLMLC STLMLC [id number] Common 12:43:29 Naveed [id number] [facility] 2021-06-25 Outpatient [facility], STLMLC STLMLC [id number] Common 12:42:27 Naveed [id number] [facility] 2021-06-25 Outpatient [facility], STLMLC STLMLC [id number] Common 12:31:12 Naveed [id number] [facility] 2021-06-25 Outpatient [facility], STLMLC STLMLC [id number] Common 12:31:03 Naveed [id number] [facility] 2021-06-25 Outpatient [facility], STLMLC STLMLC [id number] Common 12:30:21 Naveed [id number] [facility] 2021-06-25 Outpatient [facility], STLMLC STLMLC [id number] Common 11:00:43 Naveed [id number] [facility] 2022-06-08 2022-06-08 (TEL) STLMLC STLMLC [id number] Co mmon 00:00:00 00:00:00 [facility] 2022-05-06 2022-05-06 (TEL) STLMLC STLMLC [id number] Co mmon 00:00:00 00:00:00 [facility] 2022-04-03 2022-04-03 (TEL) STLMLC STLMLC [id number] Co mmon 00:00:00 00:00:00 [facility] 2022-02-172022-02-17 (TEL) STLMLC STLMLC [id number] Co mmon 00:00:00 00:00:00 [facility] 2022-02-17 2022-02-17 OFFICE STLMLC STLMLC [id number] Co mmon 00:00:00 00:00:00 VISIT [facility] PT - CHI LEVEL 4 [facility] 2022-01-06 2022-01-06 OFFICE STLMLC STLMLC [id number] Co mmon 00:00:00 00:00:00 VISIT [facility] PT - CHI LEVEL 4 [facility] 2022-01-02 2022-01-02 Emergency E LONG, MHBL MHBL [id number] MHBL 12:12:00 16:33:00 CAREY 2022-01-01 2022-01-01 (TEL) STLMLC STLMLC [id number] Co mmon 00:00:00 00:00:00 [facility] 2021-12-31 2021-12-31 (TEL) STLC STLC [id number] Co mmon 00:00:00 00:00:00 [facility] 2021-12-14 2021-12-16 Inpatient E SAKORTNEY, MHBL MED [id number] MHBL 18:26:00 22:14:00 CAMELIA 2021-12-03 2021-12-04 Emergency E DEVONTE, MHBL MHBL [id number] MHBL 18:19:00 09:53:00 RONNIE 2021-12-01 2021-12-01 Outpatient COH COH PIJFJKR ZIB COH 00:00:00 00:00:00 [id number] 2021-11-25 2021-11-26 Outpatient E AJIBADALE, MHBL MED [id number] MHBL 10:37:00 19:12:00 MONSE 2021-11-24 2021-11-24 (TEL) STLC STLC [id number] Co mmon 00:00:00 00:00:00 [facility] 2021-10-16 2021-11-03 Inpatient 3 NATHANIEL, ENCPL GILDA [id number] Encompa 23:26:00 21:40:00 CHILANGO [facility] Lynsey d 2021-11-03 2021-11-03 OFFICE STLMLC STLMLC [id number] Co mmon 00:00:00 00:00:00 VISIT NEW [facility] PT LEVEL 4 - CHI [facility] 2021-10-17 2021-10-17 (TEL) STLMLC STLMLC [id number] Co mmon 00:00:00 00:00:00 Spirit [facility] 2021-08-12 2021-08-12 (TEL) STLMLC STLMLC [id number] Co mmon 00:00:00 00:00:00 Spirit [facility] 2021-07-28 2021-07-28 OFFICE STLMLC STLMLC [id number] Co mmon 00:00:00 00:00:00 VISIT [facility] ESTAB PT - CHI LEVEL 4 [facility] 2021-07-28 2021-07-28 SUB ANNUAL STLMLC STLMLC [id number] Common 00:00:00 00:00:00 MCR [facility] WELLNESS - CHI VISIT [facility] 2021-06-12 2021-06-12 (TEL) STLMLC STLMLC [id number] Co mmon 00:00:00 00:00:00 [facility] 2021-05-21 2021-05-21 (TEL) STLMLC STLMLC [id number] Co mmon 00:00:00 00:00:00 [facility] CHI [facility] 2021-04-28 2021-04-28 OFFICE STLMLC STLMLC [id number] Co mmon 00:00:00 00:00:00 VISIT [facility] ESTAB PT - CHI LEVEL 4 [facility] 2021-03-26 2021-03-26 (TEL) STLMLC STLMLC [id number] Co mmon 00:00:00 00:00:00 Spirit - CHI [facility] 2021-03-12 2021-03-12 OFFICE STLMLC STLMLC [id number] Co mmon 00:00:00 00:00:00 VISIT [facility] PT - CHI LEVEL 4 [facility] 2021-02-10 2021-02-10 Outpatient STLMLC STLMLC [id number] Common 00:00:00 00:00:00 [facility] 2021-01-31 2021-01-31 Outpatient STLMLC STLMLC [id number] Common 00:00:00 00:00:00 [facility] 2021-01-13 2021-01-13 Outpatient STLMLC STLMLC [id number] Common 00:00:00 00:00:00 [facility] 2021-01-08 2021-01-08 Outpatient STLMLC STLMLC [id number] Common 00:00:00 00:00:00 [facility] 2020-12-31 2020-12-31 Outpatient STLMLC STLMLC [id number] Common 00:00:00 00:00:00 [facility] 2020-12-11 2020-12-11 Outpatient STLMLC STLMLC [id number] Common 00:00:00 00:00:00 [facility] 2020-08-19 2020-08-19 Outpatient STLMLC STLMLC [id number] Common 00:00:00 00:00:00 [facility] 2020-07-19 2020-07-19 Outpatient STLMLC STLMLC [id number] Common 00:00:00 00:00:00 [facility] 2020-07-15 2020-07-15 Outpatient STLMLC STLMLC [id number] Common 00:00:00 00:00:00 [facility] 2020-06-14 2020-06-14 Outpatient STLMLC STLMLC [id number] Common 00:00:00 00:00:00 [facility] 2020-06-05 2020-06-05 Outpatient STLMLC STLMLC [id number] Common 00:00:00 00:00:00 [facility] 2020-04-23 2020-04-23 Outpatient STLMLC STLMLC [id number] Common 00:00:00 00:00:00 [facility] 2020-04-22 2020-04-22 Outpatient STLMLC STLMLC [id number] Common 00:00:00 00:00:00 [facility] 2020-04-17 2020-04-17 Outpatient STLMLC STLMLC [id number] Common 00:00:00 00:00:00 [facility] 2020-01-15 2020-01-15 Out[facility] [id number] Common 10:45:00 10:45:[address] [facility] 2019-10-16 2019-10-16 [facility] [id number] Common 13:00:00 13:00:[address] [facility] 2019-07-17 2019-07-17 [facility] [id number] Common 13:45:00 13:45:[address] [facility] 2019-06-14 2019-06-14 Out[facility] [id number] Common 11:45:00 11:45:[address] [facility] 2019-06-07 2019-06-07 Out[facility] [id number] Common 11:57:00 11:57:[address] [facility] 2019-05-17 2019-05-17 [facility] [id number] Common 11:30:00 11:30:[address] [facility] 2019-04-24 2019-04-24 [facility] [id number] Common 14:52:00 14:52:[address] [facility] 2019-04-19 2019-04-19 Out[facility] [id number] Common 14:45:00 14:45:[address] [facility] 2019-04-06 2019-04-06 Out[facility] [id number] Common 08:35:00 08:35:[address] [facility] 2019-04-04 2019-04-04 [facility] [id number] Common 08:34:00 08:34:[address] [facility] 2019-03-08 2019-03-08 [facility] [id number] Common 10:57:00 10:57:[address] [facility] 2019-02-20 2019-02-20 [facility] [id number] Common 14:00:00 14:00:[address] [employer] [address] [facility] Results Test Description Test Time Test Comments Results Result Comments Source HEMOGLOBIN A1C 2021-07-28 00:00:00 Test Item Value Reference Range Interpretation Comme nts A1C (test code = 4548-4) 8.8 HEMOGLOBIN [id number] 00:00:00 Test Item Value Reference Range Interpretation Comments A1C (test code = 4548-4) 8.3 HEMOGLOBIN [id number] 00:00:00 Test Item Value Reference Range Interpretation Comments A1C (test code = 4548-4) 10.3
[2022-07-06] MEDS ORDERED: CEFTRIAXONE 1000 MG/VIAL ONE (17:47)
[2022-07-06 18:02] LABS: Hematocrit 22.2 % (39.6-49.0); Lymphocytes % 25.1 % (15.3-44.8); MCV 101.1 fL (80-100); MPV 6.5 fL (7.6-11.3); RBC Red Blood Cell Count 2.19 M/uL (4.33-5.43)
[2022-07-06 18:26] LABS: Potassium 3.8 mmol/L (3.5-5.1)
--- NOTE | 2022-07-06 18:33 | EDPHYS ---
Physician Documentation [facility] Name: Guzman Mayers Age: 77 yrs Sex: Male : 1945 Arrival Date: 07/06/2022 Time: 15:25 Bed 12 Private MD: ED Physician Hilda Fortune HPI: 07/06 18:00 This 77 yrs old Male presents to ER via Wheelchair with complaints of Penis sp3 infection. 18:00 77-year-old male with a history of CHF, CKD, COPD, diabetes, on hemodialysis presents sp3 referred by home health for penis infection. Family states that he was on antibiotics 2 weeks ago and has not improved infection is on the head of his uncircumcised penis. Patient does not make urine. Review systems, no reports of fever, URI symptoms, neck pain, chest pain, shortness of breath, secondary rash, syncope, near syncope, or any other symptoms at this time.. Historical: - Allergies: 16:26 Codeine; ph 16:26 GABAPENTIN; ph - PMHx: 16:26 ADD/ADHD; CHF; CKD; COPD; Diabetes - IDDM; Dialysis; dialysis tues, thurs, sat, uses o2 ph when sleeping.; High Cholesterol; HTN; Hypertension; - Immunization history:: Adult Immunizations unknown. - Social history:: Smoking status: Patient denies any tobacco usage or history of. ROS: 18:02 Constitutional: Negative for fever, chills, and weight loss, Neck: Negative for injury, sp3 pain, and swelling, Cardiovascular: Negative for chest pain, palpitations, and edema, Respiratory: Negative for shortness of breath, cough, wheezing, and pleuritic chest pain, Abdomen/GI: Negative for abdominal pain, nausea, vomiting, diarrhea, and constipation, Back: Negative for injury and pain, MS/Extremity: Negative for injury and deformity, Neuro: Negative for headache, weakness, numbness, tingling, and seizure. 18:02 All other systems are negative. Exam: 18:02 Constitutional: This is a well developed, well nourished patient who is awake, alert, sp3 and in no acute distress. Head/Face: Normocephalic, atraumatic. Chest/axilla: Normal chest wall appearance and motion. Nontender with no deformity. No lesions are appreciated. Cardiovascular: Regular rate and rhythm with a normal S1 and S2. No gallops, murmurs, or rubs. Normal PMI, no JVD. No pulse deficits. Respiratory: Lungs have equal breath sounds bilaterally, clear to auscultation and percussion. No rales, rhonchi or wheezes noted. No increased work of breathing, no retractions or nasal flaring. Abdomen/GI: Soft, non-tender, with normal bowel sounds. No distension or tympany. No guarding or rebound. No evidence of tenderness throughout. 18:02 : Uncircumcised penis without evidence of phimosis or paraphimosis. Purulent material noted consistent with balanitis.. Vital Signs: 16:23 BP 126 / 55; Pulse 59; Resp 18; Temp 97.7; Pulse Ox 100% on R/A; Weight 73.94 kg; ph Height 5 ft. 10 in. (177.80 cm); 17:17 BP 128 / 62; Pulse 58; Resp 18; Pulse Ox 93% on R/A; mb9 18:55 BP 131 / 67; Pulse 59; Resp 20; Pulse Ox 96% ; mb9 16:23 Body Mass Index 23.39 (73.94 kg, 177.80 cm) ph MDM: 17:38 Patient medically screened. sp3 18:02 Data reviewed: vital signs, nurses notes, old medical records, lab test result(s). ED sp3 course: 77-year-old male with balanitis. Given his diabetes, we will assess CBC and metabolic panel. Rocephin IV will be given and patient will likely be discharged home on p.o. antibiotics and topical antibiotics with PCP follow-up. All signs are normal and I am not suspicious for sepsis, ascending urinary tract infection, or any other concerning findings at this time.. 02 17:38 Order name: CBC with Diff; Complete Time: 18:10 sp3 07/06 17:38 Order name: BMP sp3 07/06 17:38 Order name: IV Saline Lock; Complete Time: 17:51 sp3 Administered Medications: 17:51 Drug: Rocephin - (cefTRIAXone) 1 grams Route: IVPB; Infused Over: 30 mins; Site: right mb9 forearm; Disposition Summary: 07/06/22 18:33 Discharge Ordered Location: Home sp3 Condition: Stable sp3 Diagnosis - Balanitis sp3 Followup: sp3 - With: Private Physician - When: Upon discharge from the Emergency Department - Reason: Wound Recheck, Continuance of care Discharge Instructions: - Discharge Summary Sheet sp3 - Balanitis sp3 Forms: - Medication Reconciliation Form sp3 - Thank You Letter sp3 - Antibiotic Education sp3 - Prescription Opioid Use sp3 Prescriptions: - Bactrim DS 800-160 mg Oral Tablet - take 1 tablet by ORAL route every 12 hours for 7 days; 14 tablet; Refills: 0, sp3 Product Selection Permitted - mupirocin 2 % Topical ointment - apply 1 application by TOPICAL route 3 times per day; 1 tube; Refills: 0, kb Product Selection Permitted Signatures: Dispatcher [employer] EDPiedad Chilel RN RN Hilda Fortune MD MD sp3 Kelly Herron RN RN mb9 Corrections: (The following items were deleted from the chart) 17:42 17:38 Urine Dipstick-Ancillary ordered. sp3 mb9
--- NOTE | 2022-07-06 18:33 | ER ---
Nurse's Notes [facility] Name: Guzman Mayers Age: 77 yrs Sex: Male : 1945 Arrival Date: 07/06/2022 Time: 15:25 Bed 12 Private MD: Diagnosis: Balanitis Presentation: 07/06 16:23 Chief complaint: Patient states: " I am not circumcised and I get infections under my ph foreskin." reports swelling, redness, bleeding and foul odor from penile area, also reports fatigue, denies fever or chills. Coronavirus screen: Vaccine status: Patient reports receiving the 2nd dose of the covid vaccine. Ebola Screen: No symptoms or risks identified at this time. Initial Sepsis Screen: Does the patient meet any 2 criteria? No. Patient's initial sepsis screen is negative. Does the patient have a suspected source of infection? Yes: Dysuria/Frequency/Urgency/UTI. Risk Assessment: Do you want to hurt yourself or someone else? Patient reports no desire to harm self or others. Onset of symptoms was July 06, 2022. 16:23 Method Of Arrival: Wheelchair ph 16:23 Acuity: CHICHO 3 ph Historical: - Allergies: 16:26 Codeine; ph 16:26 GABAPENTIN; ph - PMHx: 16:26 ADD/ADHD; CHF; CKD; COPD; Diabetes - IDDM; Dialysis; dialysis tues, thurs, sat, uses o2 ph when sleeping.; High Cholesterol; HTN; Hypertension; - Immunization history:: Adult Immunizations unknown. - Social history:: Smoking status: Patient denies any tobacco usage or history of. Screenin:19 [facility] ED Fall Risk Assessment (Adult) History of falling in the last 3 months, mb9 including since admission No falls in past 3 months (0 pts) Confusion or Disorientation No (0 pts) Intoxicated or Sedated No (0 pts) Impaired Gait No (0 pts) Mobility Assist Device Used No (0 pt) Altered Elimination No (0 pt) Score/Fall Risk Level 0 - 2 = Low Risk Oriented to surroundings, Maintained a safe environment, Educated pt \\T\\ family on fall prevention, incl call for assistance when getting out of bed. Abuse screen: Denies threats or abuse. Nutritional screening: No deficits noted. Tuberculosis screening: No symptoms or risk factors identified. Assessment: 17:11 Reassessment: pt brought back to ER room. mb9 17:17 General: Appears in no apparent distress. comfortable, Behavior is calm, cooperative, mb9 appropriate for age. Pain: Complains of pain in penis Pain does not radiate. Quality of pain is described as Pain began 6-8 weeks ago. Neuro: [place] Agitation-Sedation Scale (RASS): 0 - Alert and Calm Level of Consciousness is awake, alert, obeys commands, Oriented to person, place, time, situation, Appropriate for age. Respiratory: Airway is patent Respiratory effort is even, unlabored, Respiratory pattern is regular, symmetrical. GI: Abdomen is round non-distended. : Reports "pain and bleeding in penis". EENT: No signs and/or symptoms were reported regarding the EENT system. Derm: Skin is pink, warm \\T\\ dry. Musculoskeletal: Range of motion: intact in all extremities. 18:55 Reassessment: No changes from previously documented assessment. Patient and/or family mb9 updated on plan of care and expected duration. Pain level reassessed. Patient is alert, oriented x 3, equal unlabored respirations, skin warm/dry/pink. Vital Signs: 16:23 BP 126 / 55; Pulse 59; Resp 18; Temp 97.7; Pulse Ox 100% on R/A; Weight 73.94 kg; ph Height 5 ft. 10 in. (177.80 cm); 17:17 BP 128 / 62; Pulse 58; Resp 18; Pulse Ox 93% on R/A; mb9 18:55 BP 131 / 67; Pulse 59; Resp 20; Pulse Ox 96% ; mb9 16:23 Body Mass Index 23.39 (73.94 kg, 177.80 cm) ph ED Course: 15:25 Patient arrived in ED. rg4 16:26 Triage completed. ph 16:26 Arm band placed on Patient placed in waiting room, Patient notified of wait time. ph 17:11 Kelly Herron RN is Primary Nurse. mb9 17:20 Bed in low position. Call light in reach. Side rails up X 1. Client placed on mb9 continuous cardiac and pulse oximetry monitoring. NIBP monitoring applied. Door closed. Noise minimized. Warm blanket given. 17:24 Hilda Fortune MD is Attending Physician. sp3 17:51 BMP Sent. mb9 17:51 CBC with Diff Sent. mb9 17:51 Inserted saline lock: 20 gauge in right forearm, using aseptic technique. Blood mb9 collected. 18:55 No provider procedures requiring assistance completed. IV discontinued, intact, mb9 bleeding controlled, No redness/swelling at site. Pressure dressing applied. Administered Medications: 17:51 Drug: Rocephin - (cefTRIAXone) 1 grams Route: IVPB; Infused Over: 30 mins; Site: right mb9 forearm; Medication: 17:20 VIS not applicable for this client. mb9 Outcome: 18:33 Discharge ordered by . sp3 18:55 Discharged to home via wheelchair. mb9 18:55 Condition: stable 18:55 Discharge instructions given to patient, Instructed on discharge instructions, follow up and referral plans. Demonstrated understanding of instructions, follow-up care, medications, Prescriptions given X 2. 18:55 Patient left the ED. mb9 Signatures: Piedad De La Rosa, RN RN [place] rg4 Hilda Fortune MD MD sp3 Kelly Herron RN RN mb9
[2022-07-06 19:04] VITALS: TEMP 97.7
[2022-07-06 19:15] VITALS: BP 131/67; O2SAT 96
== END 2022-07-06 18:55 | disposition home or self-care (01) ==
LOC: ER 15:24
DX: N48.1 Balanitis (principal)
CPT/HCPCS: 36415; 80048; 85025; 96374; 99284

== ENCOUNTER 2022-07-27 19:29 | Inpatient (IN) | payer OTHER, BC ==
--- OUTSIDE RECORDS SUMMARY | 2022-07-27 19:35 | XMS REPORT | Continuity of Care Document ---
:1945 Author Organization [facility] t Address [address] [facility] [address] [place] [address] Care Team Providers Name Role Phone Naveed Fortune Attending Clinician Unavailable [id number] Attending Clinician Unavailable CAREY LONG Attending Clinician Unavailable CAMELIA MANCILLA Attending Clinician Unavailable RONNIE WHITNEY Attending Clinician Unavailable MONSE VELAZQUEZ Attending Clinician Unavailable CHILANGO ARMSTRONG NATASHA Attending Clinician Unavailable [id number] Admitting Clinician Unavailable CAMELIA MANCILLA Admitting Clinician Unavailable MONSE VELAZQUEZ Admitting Clinician Unavailable CHILANGO ARMSTRONG NATASHA Admitting Clinician Unavailable Payers Payer Name Policy Type Policy Number Effective Date Expiration Date S kristin MEDICARE PART A [id number] 2011 AND B 00:00:00 [employer] Blue 6 [id number] 2014 [facility] Shield [place] 00:00:00 - [facility] [id number] BCTX BCTI [id number] MEDICARE MB [id number] 2011 [facility] NOVITAS 00:00:00 - [facility] MEDICARE MB [id number] 2011 [facility] NOVITAS 00:00:00 - [facility] MEDICARE MB [id number] 2011 [facility] NOVITAS 00:00:00 - [facility] Problems Condition Condition Condition Status Onset Resolution Last Treating Co mments Source Name Details Category Date Date Treatment Clinician Date [id number] Other Problem Common obesity Spirit due to - [facility]I excess [facility] [id number] Metabolic Problem Com mon syndrome Spirit - [facility] [id number] Body mass Problem Com mon index Spirit [BMI] - [facility] 30.0-30.9, [facility] [id number] Frailty Problem Commo n syndrome Spirit in - [facility] geriatric [facility] 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 - [facility] , single major St episode depressive [facility] Center prior episode 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 - [facility] Chronic Chronic Problem Common systolic systolic Spirit heart congestive - [facility]I failure heart [facility] [id number] 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 - [facility] [id number] GERD Problem Common without Spirit esophagiti - CHI s [facility] [id number] Type 2 Problem Common diabetes Spirit mellitus - CHI with [facility] [id number] Mixed Problem Common hyperlipid Spirit emia - [facility] [id number] Noncomplia Problem Co mmon nce of Spirit patient - [facility] with [facility] Chronic +5th digit Problem Comm on atrial eff Spirit fibrillati 02/28/19*Ch - CHI on ronic St (disorder) atrial [facility] fibrillati Medica on [facility] [id number] 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 - [facility] with [facility] Chronic Chronic Problem Common obstructiv obstructiv Sp jerome e lung e - CHI disease pulmonary [facility] unspecifie Medica l d COPD Center type [id number] Heart Problem Common failure, Spirit congestive - [facility] , etiology [facility] [id number] Constipati Problem Com mon on, Spirit unspecifie - CHI d constipati [facility] [place] [id number] Memory Problem Common impairment Spirit of gradual - CHI onset [facility] [id number] HTN, goal Problem Comm on below Spirit 130/80 - [facility] [id number] Anemia of Problem Com mon chronic Spirit disease - [facility] [id number] intermediate Problem Com mon (current) Spirit use of - [facility]I insulin [facility] [id number] Benign Problem Common prostatic Spirit hyperplasi - [facility] a without [facility] urinary Medical tract Center symptoms Hypertroph Obstructiv Problem C ommon ic e Spirit 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 [facility] Hypertensi Hypertensi Problem C ommon ve heart [...] gabapent Active Unknown Commo n in in [facility] codeine codeine Active Unknown Common [facility] Social History Social Habit Start Date Stop Date Quantity Comments Source History of Tobacco Use Co mmon [facility] Sex Assigned At Com mon [facility] Smoking Status Start Date Stop Date Source Former Smoker 2022-05-12 00:00:00 2022-05-12 00:00:00 Common S pirit [facility] Medications Ordered Filled Start Stop [...] UNIT/ML 00:00: 100 00 UNIT/ML Lantus Lantus 2-0 No Lantus SoloStar SoloStar 8-04 SoloStar 100 UNIT/ML 100 UNIT/ML 00:00: 100 00 UNIT/ML Lantus Lantus 2-0 No Lantus SoloStar SoloStar 8-04 SoloStar 100 UNIT/ML 100 UNIT/ML 00:00: 100 00 UNIT/ML Lantus Lantus 2-0 No Lantus SoloStar SoloStar 8-04 SoloStar 100 UNIT/ML 100 UNIT/ML 00:00: 100 00 UNIT/ML Lantus Lantus 2-0 No Lantus SoloStar SoloStar 8-04 SoloStar 100 UNIT/ML 100 UNIT/ML 00:00: 100 00 UNIT/ML Lantus Lantus 2-0 No Lantus SoloStar SoloStar 8-04 SoloStar 100 UNIT/ML 100 UNIT/ML 00:00: 100 00 UNIT/ML Advair HFA Advair HFA 2019-0 Yes Naveed 2 puffs Common 1-15 [facility] 00:00: - [facility]I 00 [facility] BD BD 2018- Yes Naveed 1 needle Common Ultra-Fine Ultra-Fine 0-09 Fortune with Sp jerome Christina Pen Christina Pen 00:00: Basaglar - [facility] [place] 00 [facility] BD BD 2018-05 No QD BD Ultra-Fine Ultra-Fine 0-09 Ultra-Fine Christina Pen Christina Pen 00:00: Christina Pen [place] 4mm [place] 4mm 00 [place] x 32Gm x 32Gm 4mm x 32Gm BD BD 2018-05 No QD BD Ultra-Fine Ultra-Fine 0-09 Ultra-Fine Christina Pen Christina Pen 00:00: Christina Pen [place] 4mm [place] 4mm 00 [place] x 32Gm x 32Gm 4mm x 32Gm BD BD 2018-05 No QD BD Ultra-Fine Ultra-Fine 0-09 Ultra-Fine Christina Pen Christina Pen 00:00: Christina Pen [place] 4mm [place] 4mm 00 [place] x 32Gm x 32Gm 4mm x 32Gm [facility] 2018-05 No QD BD Ultra-Fine Ultra-Fine 0-09 Ultra-Fine Christina Pen Christina Pen 00:00: Christina Pen [place] 4mm [place] 4mm 00 [place] x 32Gm x 32Gm 4mm x 32Gm [facility] 2018- No QD BD Ultra-Fine Ultra-Fine 0-09 Ultra-Fine Christina Pen Christina Pen 00:00: Christina Pen [place] 4mm [place] 4mm 00 [place] x 32Gm x 32Gm 4mm x 32Gm [facility] 2018- No QD BD Ultra-Fine Ultra-Fine 0-09 Ultra-Fine Christina Pen Christina Pen 00:00: Christina Pen [place] 4mm [place] 4mm 00 [place] x 32Gm x 32Gm 4mm x 32Gm [facility] 2018- No QD BD Ultra-Fine Ultra-Fine 0-09 Ultra-Fine Christina Pen Christina Pen 00:00: Christina Pen [place] 4mm [place] 4mm 00 [place] x 32Gm x 32Gm 4mm x 32Gm [facility] 2018- No QD BD Ultra-Fine Ultra-Fine 0-09 Ultra-Fine Christina Pen Christina Pen 00:00: Christina Pen [place] 4mm [place] 4mm 00 [place] x 32Gm x 32Gm 4mm x 32Gm [facility] 2018-05 No QD BD Ultra-Fine Ultra-Fine 0-09 Ultra-Fine Christina Pen Christina Pen 00:00: Christina Pen [place] 4mm [place] 4mm 00 [place] x 32Gm x 32Gm 4mm x 32Gm [facility] 2018- No QD BD Ultra-Fine Ultra-Fine 0-09 Ultra-Fine Christina Pen Christina Pen 00:00: Christina Pen [place] 4mm [place] 4mm 00 [place] x 32Gm x 32Gm 4mm x 32Gm [facility] 2018- No QD BD Ultra-Fine Ultra-Fine 0-09 Ultra-Fine Christina Pen Christina Pen 00:00: Christina Pen [place] 4mm [place] 4mm 00 [place] x 32Gm x 32Gm 4mm x 32Gm [facility] 2018- No QD BD Ultra-Fine Ultra-Fine 0-09 Ultra-Fine Christina Pen Christina Pen 00:00: Christina Pen [place] 4mm [place] 4mm 00 [place] x 32Gm x 32Gm 4mm x 32Gm [facility] 2018- No QD BD Ultra-Fine Ultra-Fine 0-09 Ultra-Fine Christina Pen Christina Pen 00:00: Christina Pen [place] 4mm [place] 4mm 00 [place] x 32Gm x 32Gm 4mm x 32Gm [facility] 2018-05 No QD BD Ultra-Fine Ultra-Fine 0-09 Ultra-Fine Christina Pen Christina Pen 00:00: Christina Pen [place] 4mm [place] 4mm 00 [place] x 32Gm x 32Gm 4mm x 32Gm [facility] 2018-05 No QD BD Ultra-Fine Ultra-Fine 0-09 Ultra-Fine Christina Pen Christina Pen 00:00: Christina Pen [place] 4mm [place] 4mm 00 [place] x 32Gm x 32Gm 4mm x 32Gm [facility] 2018-05 No QD BD Ultra-Fine Ultra-Fine 0-09 Ultra-Fine Christina Pen Christina Pen 00:00: Christina Pen [place] 4mm [place] 4mm 00 [place] x 32Gm x 32Gm 4mm x 32Gm [facility] 2018-05 No QD BD Ultra-Fine Ultra-Fine 0-09 Ultra-Fine Christina Pen Christina Pen 00:00: Christina Pen [place] 4mm [place] 4mm 00 [place] x 32Gm x 32Gm 4mm x 32Gm [facility] 2018-05 No QD BD Ultra-Fine Ultra-Fine 0-09 Ultra-Fine Christina Pen Christina Pen 00:00: Christina Pen [place] 4mm [place] 4mm 00 [place] x 32Gm x 32Gm 4mm x 32Gm [facility] 2018-05 No QD BD Ultra-Fine Ultra-Fine 0-09 Ultra-Fine Christina Pen Christina Pen 00:00: Christina Pen [place] 4mm [place] 4mm 00 [place] x 32Gm x 32Gm 4mm x 32Gm [facility] 2018-05 No QD BD Ultra-Fine Ultra-Fine 0-09 Ultra-Fine Christina Pen Christina Pen 00:00: Christina Pen [place] 4mm [place] 4mm 00 [place] x 32Gm x 32Gm 4mm x 32Gm [facility] 2018-05 No QD BD Ultra-Fine Ultra-Fine 0-09 Ultra-Fine Christina Pen Christina Pen 00:00: Christina Pen [place] 4mm [place] 4mm 00 [place] x 32Gm x 32Gm 4mm x 32Gm [facility] 2018-05 No QD BD Ultra-Fine Ultra-Fine 0-09 Ultra-Fine Christina Pen Christina Pen 00:00: Christina Pen [place] 4mm [place] 4mm 00 [place] x 32Gm x 32Gm 4mm x 32Gm Tums E-X Tums E-X Yes Naveed 1 tablet C ommon 750 750 [facility] Basaglar Basaglar Yes Naveed 52 Units C ommon KwikPen KwikPen [facility] PreserVisio PreserVisio Yes Naveed as Common n AREDS n AREDS [facility] directed [facility] Citalopram Citalopram Yes Naveed 1 tablet Common Hydrobromid Hydrobromid [facility] e e [facility] Stool Stool Yes Naveed not Common Softener Softener Fortune defined Spi rit [facility] Gentle Gentle Yes Naveed 1 tablet Commo n Laxative Laxative Fortune as needed S pirit [facility] Atorvastati Atorvastati Yes Naveed 1 tablet Common n Calcium n Calcium Fortune [facility] Contour Contour Yes Naveed USE 3 Common Test Test Fortune TIMES A [facility] Eliquis 2.5 Eliquis 2.5 Yes Naveed 1 tablet Common mg mg Fortune [facility] Multivitami Multivitami Yes Naveed as Common n Adult n Adult Fortune directed [facility] Carvedilol Carvedilol Yes Naveed TAKE 1 Common [facility] TABLET BY Spirit MOUTH - CHI TWICE A St DAY ON [facility] DIALYSIS Medical DAYS [place] Atorvastati Atorvastati Yes Naveed TAKE 1 Common n Calcium n Calcium Fortune TABLET BY Spirit MOUTH - CHI EVERY DAY [facility] GlipiZIDE GlipiZIDE Yes Naveed 1 tablet Common Fortune [facility] Basaglar Basaglar Yes Naveed 50 Units C ommon KwikPen KwikPen Fortune [facility] Advair HFA Advair HFA No 2{puffs [...] Dexcom G6 Dexcom G6 No Dexcom G6 Ground Source Heat Pump Technician - Ground Source Heat Pump Technician - Ground Source Heat Pump Technician - Carvedilol Carvedilol No Carvedilol 12.5 MG [...] Dexcom G6 Dexcom G6 No Dexcom G6 Ground Source Heat Pump Technician - Ground Source Heat Pump Technician - Ground Source Heat Pump Technician - glipiZIDE 5 glipiZIDE 5 No 1{table [...] Dexcom G6 Dexcom G6 No Dexcom G6 Ground Source Heat Pump Technician - Ground Source Heat Pump Technician - Ground Source Heat Pump Technician - Ipratropium Ipratropium No Ipratropiu -Albuterol -Albuterol [...] Dexcom G6 Dexcom G6 No Dexcom G6 Ground Source Heat Pump Technician - Ground Source Heat Pump Technician - Ground Source Heat Pump Technician - Gentle Gentle No 1{table QD Gentle [...] Dexcom G6 Dexcom G6 No Dexcom G6 Ground Source Heat Pump Technician - Ground Source Heat Pump Technician - Ground Source Heat Pump Technician - PreserVisio PreserVisio No PreserVisi n AREDS [...] Dexcom G6 Dexcom G6 No Dexcom G6 Ground Source Heat Pump Technician - Ground Source Heat Pump Technician - Ground Source Heat Pump Technician - Advair HFA Advair HFA No 2{puffs [...] Dexcom G6 Dexcom G6 No Dexcom G6 Ground Source Heat Pump Technician - Ground Source Heat Pump Technician - Ground Source Heat Pump Technician - Advair HFA Advair HFA No 2{puffs [...] Dexcom G6 Dexcom G6 No Dexcom G6 Ground Source Heat Pump Technician - Ground Source Heat Pump Technician - Ground Source Heat Pump Technician - Advair HFA Advair HFA No 2{puffs [...] Dexcom G6 Dexcom G6 No Dexcom G6 Ground Source Heat Pump Technician - Ground Source Heat Pump Technician - Ground Source Heat Pump Technician - Atorvastati Atorvastati No 1{table QD Atorvastat [...] Dexcom G6 Dexcom G6 No Dexcom G6 Ground Source Heat Pump Technician - Ground Source Heat Pump Technician - Ground Source Heat Pump Technician - Atorvastati Atorvastati No Atorvastat n Calcium [...] Dexcom G6 Dexcom G6 No Dexcom G6 Ground Source Heat Pump Technician - Ground Source Heat Pump Technician - Ground Source Heat Pump Technician - Atorvastati Atorvastati No Atorvastat n Calcium [...] Stool Stool No Stool Softener Softener Softener Gentle Gentle No 1{table QD Gentle Laxative [...] FluAD 2021-03-30 Completed [facility] 13:13:00 - [facility] FluAD FluAD 2021-03-30 Completed [facility] 13:13:00 - [facility] FluAD FluAD 2021-03-30 Completed [facility] 13:13:00 - [facility] FluAD FluAD 2021-03-30 Completed [facility] 13:13:00 - [facility] FluAD FluAD 2021-03-30 Completed [facility] 13:13:00 - [facility] FluAD FluAD 2021-03-30 Completed [facility] 13:13:00 - [facility] FluAD FluAD 2021-03-30 Completed [facility] 13:13:00 - [facility] FluAD FluAD 2021-03-30 Completed [facility] 13:13:00 - [facility] FluAD FluAD 2021-03-30 Completed [facility] 13:13:00 - [facility] FluAD FluAD 2021-03-30 Completed [facility] 13:13:00 - [facility] FluAD FluAD 2021-03-30 Completed [facility] 13:13:00 - [facility] FluAD FluAD 2021-03-30 Completed [facility] 13:13:00 - [facility] FluAD FluAD 2021-03-30 Completed [facility] 13:13:00 - [facility] FluAD FluAD 2021-03-30 Completed [facility] 13:13:00 - [facility] FluAD FluAD 2021-03-30 Completed [facility] 13:13:00 - [facility] FluAD FluAD 2021-03-30 Completed [facility] 13:13:00 - [facility] FluAD FluAD 2021-03-30 Completed [facility] 13:13:00 - [facility] FluAD FluAD 2021-03-30 Completed [facility] 13:13:00 - [facility] FluAD FluAD 2021-03-30 Completed [facility] 13:13:00 - [facility] FluAD FluAD 2021-03-30 Completed [facility] 13:13:00 - [facility] COVID-19 Vaccine COVID-19 Vaccine 2020-08-19 Completed Co mmon [facility] (Andrea) (Andrea) 09:17:00 [facility] COVID-19 Vaccine COVID-19 Vaccine 2020-08-19 Completed Co mmon [facility] (Andrea) ([employer]) 09:17: [facility] COVID-19 Vaccine COVID-19 Vaccine 2020-08-19 Completed Co mmon [facility] (Andrea) ([employer]) 09:17: [facility] COVID-19 Vaccine COVID-19 Vaccine 2020-08-19 Completed Co mmon [facility] (Andrea) (Andrea) 09:17:00 - [facility] COVID-19 Vaccine COVID-19 Vaccine 2020-08-19 Completed Co mmon [facility] (Andrea) (Andrea) 09:17:00 - [facility] COVID-19 Vaccine COVID-19 Vaccine 2020-08-19 Completed Co mmon [facility] (Andrea) (Andrea) 09:17:00 - [facility] COVID-19 Vaccine COVID-19 Vaccine 2020-08-19 Completed Co mmon [facility] (Andrea) (Andrea) 09:17:00 - [facility] COVID-19 Vaccine COVID-19 Vaccine 2020-08-19 Completed Co mmon [facility] (Andrea) (Andrea) 09:17:00 [facility] COVID-19 Vaccine COVID-19 Vaccine 2020-08-19 Completed Co mmon [facility] (Andrea) (Andrea) 09:17:00 - [facility] COVID-19 Vaccine COVID-19 Vaccine 2020-08-19 Completed Co mmon [facility] (Andrea) (Andrea) 09:17:00 [facility] COVID-19 Vaccine COVID-19 Vaccine 2020-08-19 Completed Co mmon [facility] (Andrea) (Andrea) 09:17:00 [facility] COVID-19 Vaccine COVID-19 Vaccine 2020-08-19 Completed Co mmon [facility] (Andrea) (Andrea) 09:17:00 [facility] COVID-19 Vaccine COVID-19 Vaccine 2020-08-19 Completed Co mmon [facility] (Andrea) (Andrea) 09:17:00 [facility] COVID-19 Vaccine COVID-19 Vaccine 2020-08-19 Completed Co mmon [facility] (Andrea) (Andrea) 09:17:00 [facility] COVID-19 Vaccine COVID-19 Vaccine 2020-08-19 Completed Co mmon [facility] (Andrea) (Andrea) 09:17:00 [facility] COVID-19 Vaccine COVID-19 Vaccine 2020-08-19 Completed Co mmon [facility] (Andrea) (Andrea) 09:17:00 - [facility] COVID-19 Vaccine COVID-19 Vaccine 2020-08-19 Completed Co mmon [facility] (Andrea) (Andrea) 09:17:00 [facility] COVID-19 Vaccine COVID-19 Vaccine 2020-08-19 Completed Co mmon [facility] (Andrea) (Andrea) 09:17:00 [facility] COVID-19 Vaccine COVID-19 Vaccine 2020-08-19 Completed Co mmon [facility] (Andrea) (Andrea) 09:17:00 [facility] COVID-19 Vaccine COVID-19 Vaccine 2020-08-19 Completed Co mmon [facility] (Andrea) (Andrea) 09:17:00 [facility] COVID-19 Vaccine COVID-19 Vaccine 2020-08-19 Completed Co mmon [facility] (Andrea) (Andrea) 09:17:00 [facility] COVID-19 Vaccine COVID-19 Vaccine 2020-08-19 Completed Co mmon [facility] (Andrea) (Andrea) 09:17:00 [facility] Vital Signs Vital Name Observation Time Observation Value Comments Source height 2022-02-17 15:00:00 70 [in_i] [facility] weight 2022-02-17 15:00:00 208 [lb_av] [facility] temperature 2022-02-17 15:00:00 98.1 [degF] [facility] bmi 2022-02-17 15:00:00 29.84 kg/m2 [facility] blood pressure 2022-02-17 15:00:00 121 mm[Hg] [facility] - systolic [facility] blood pressure 2022-02-17 15:00:00 61 mm[Hg] [facility] - diastolic [facility] height 2022-01-06 14:30:00 70 [in_i] [facility] weight 2022-01-06 14:30:00 208 [lb_av] [facility] bmi 2022-01-06 14:30:00 29.84 kg/m2 Common S pirit - [facility] blood pressure 2022-01-06 14:30:00 137 mm[Hg] [facility] - systolic [facility] blood pressure 2022-01-06 14:30:00 79 mm[Hg] [facility] - diastolic [facility] height 2021-11-03 09:45:00 70 [in_i] Common S pirit - [facility] weight 2021-11-03 09:45:00 210 [lb_av] Common S pirit - [facility] bmi 2021-11-03 09:45:00 30.13 kg/m2 Common S pirit - [facility] blood pressure 2021-11-03 09:45:00 144 mm[Hg] [facility] - systolic [facility] blood pressure 2021-11-03 09:45:00 86 mm[Hg] [facility] - diastolic [facility] height 2021-07-28 14:10:00 70 [in_i] Common S pirit - [facility] weight 2021-07-28 14:10:00 211.8 [lb_av] Common [facility] - [facility] temperature 2021-07-28 14:10:00 97.5 [degF] Common S pirit [facility] bmi 2021-07-28 14:10:00 30.39 kg/m2 [facility] S pirit [facility] oximetry 2021-07-28 14:10:00 93 % [facility] S pirit [facility] respiratory rate 2021-07-28 14:10:00 16 /min Comm on Spirit - [facility] blood pressure 2021-07-28 14:10:00 134 mm[Hg] [facility] - systolic [facility] blood pressure 2021-07-28 14:10:00 63 mm[Hg] [facility] - diastolic [facility] height 2021-07-28 13:20:00 70 [in_i] Common S pirit [facility] weight 2021-07-28 13:20:00 211.8 [lb_av] Common [facility] temperature 2021-07-28 13:20:00 97.5 [degF] [facility] bmi 2021-07-28 13:20:00 30.39 kg/m2 Common S pirit [facility] oximetry 2021-07-28 13:20:00 93 % Common S [facility] respiratory rate 2021-07-28 13:20:00 16 /min Comm on [facility] blood pressure 2021-07-28 13:20:00 134 mm[Hg] Common [facility] - systolic [facility] blood pressure 2021-07-28 13:20:00 62 mm[Hg] Common [facility] - diastolic [facility] height 2021-04-28 13:10:00 70 [in_i] [facility] weight 2021-04-28 13:10:00 215.9 [lb_av] [facility] temperature 2021-04-28 13:10:00 97.3 [degF] [facility] bmi 2021-04-28 13:10:00 30.98 kg/m2 [facility] oximetry 2021-04-28 13:10:00 95 % Common [facility] respiratory rate 2021-04-28 13:10:00 17 /min Comm on [facility] blood pressure 2021-04-28 13:10:00 121 mm[Hg] Common [facility] - systolic [facility] blood pressure 2021-04-28 13:10:00 60 mm[Hg] [facility] - diastolic [facility] height 2021-03-12 09:30:00 70 [in_i] Common [facility] weight 2021-03-12 09:30:00 211.4 [lb_av] [facility] temperature 2021-03-12 09:30:00 97.7 [degF] Common [facility] bmi 2021-03-12 09:30:00 30.33 kg/m2 [facility] oximetry 2021-03-12 09:30:00 95 % Common S pirit - [facility] respiratory rate 2021-03-12 09:30:00 16 /min Comm on [facility] blood pressure 2021-03-12 09:30:00 132 mm[Hg] Common [facility] - systolic [facility] blood pressure 2021-03-12 09:30:00 67 mm[Hg] Common [facility] - diastolic [facility] Procedures Procedure Date / Time Performed Performing Clinician Lupe bowie [id number] 2021-10-18 00:00:00 [facility] [place] Encounters Start End Encounter Admission Attending Care Care Encounter Source Date/Time Date/Time Type Type Clinicians Facility Department ID 2022-05-20 Outpatient [facility], STLMLC STLMLC [id number] Common 08:24:01 Naveed [facility] 2022-05-15 Outpatient [facility], STLMLC STLMLC [id number] Common 08:53:00 Naveed [id number] [facility] 2022-05-11 Outpatient [facility], STLMLC STLMLC [id number] Common 14:49:00 Naveed [facility] 2022-05-08 Outpatient [facility], STLMLC STLMLC [id number] Common 10:15:01 Naveed [id number] [facility] [facility]07 Outpatient Fortune, STLMLC STLMLC [id number] Common 11:53:00 Naveed [id number] [facility] 2022-02-18 Outpatient Fortune, STLMLC STLMLC [id number] Common 12:05:01 Naveed [facility] 2022-01-01 Outpatient Fortune, STLMLC STLMLC [id number] Common 10:24:01 Naveed [facility] 2021-12-29 Outpatient Fortune, STLMLC STLMLC [id number] Common 08:34:00 Naveed [facility] 2021-12-16 Outpatient [facility] [id number] [place] 14:42:[id number] [place] [address] 2021-11-19 Outpatient Fortune, STLMLC STLMLC [id number] Common 08:42:01 Naveed [facility] 2021-11-03 Outpatient Fortune, STLMLC STLMLC [id number] Common 10:33:01 Naveed [id number] [facility] 2021-10-15 Outpatient 3 [id number] ENCPL REF [facility] 08:19:25 [facility]18 [facility] 2021-10-14 Outpatient 3 [id number] ENCPL REF [id number] [facility] 11:59:03 0517 [facility] [place] 2021-06-25 Outpatient Fortune, STLMLC STLMLC [id number] Common 14:22:06 Naveed [id number] [facility] 2021-06-25 Outpatient Fortune, STLMLC STLMLC [id number] Common 14:13:51 Naveed [id number] [facility] 2021-06-25 Outpatient Fortune, STLMLC STLMLC [id number] Common 13:38:12 Naveed [id number] [facility] 2021-06-25 Outpatient Fortune, STLMLC STLMLC [id number] Common 12:43:29 Naveed [id number] [facility] 2021-06-25 Outpatient Fortune, STLMLC STLMLC [id number] Common 12:42:27 Naveed [id number] [facility] 2021-06-25 Outpatient Fortune, STLMLC STLMLC [id number] Common 12:31:12 Naveed [id number] [facility] 2021-06-25 Outpatient Fortune, STLMLC STLMLC [id number] Common 12:31:03 Naveed [id number] [facility] 2021-06-25 Outpatient Fortune, STLMLC STLMLC [id number] Common 12:30:21 Naveed [id number] [facility] 2021-06-25 Outpatient Fortune, STLMLC STLMLC [id number] Common 11:00:43 Naveed [id number] [facility] 2022-07-03 2022-07-03 (TEL) STLMLC STLMLC [id number] Co mmon 00:00:00 00:00:00 [facility] 2022-06-08 2022-06-08 (TEL) STLMLC STLMLC [id number] Co mmon 00:00:00 00:00:00 [facility] 2022-05-06 2022-05-06 (TEL) STLMLC STLMLC [id number] Co mmon 00:00:00 00:00:00 [facility] 2022-04-03 2022-04-03 (TEL) STLMLC STLMLC [id number] Co mmon 00:00:00 00:00:00 [facility] 2022-02-17 2022-02-17 (TEL) STLMLC STLMLC [id number] Co mmon 00:00:00 00:00:00 [facility] 2022-02-17 2022-02-17 OFFICE STLMLC STLMLC [id number] Co mmon 00:00:00 00:00:00 VISIT [facility] PT - CHI LEVEL 4 [facility] 2022-01-06 2022-01-06 OFFICE STLMLC STLMLC [id number] Co mmon 00:00:00 00:00:00 VISIT [facility] PT - CHI LEVEL 4 [facility] 2022-01-02 2022-01-02 Emergency E LONG, MHBL MHBL [id number] MHBL 12:12:00 16:33:00 CAREY 2022-01-01 2022-01-01 (TEL) STLMLC STLMLC [id number] Co mmon 00:00:00 00:00:00 [facility] 2021-12-31 2021-12-31 (TEL) STLMLC STLMLC [id number] Co mmon 00:00:00 00:00:00 [facility] 2021-12-14 2021-12-16 Inpatient E SAKORTNEY, JANE MED [id number] MHBL 18:26:00 22:14:00 CAMELIA 2021-12-03 2021-12-04 Emergency E DEVONTE, MHBL MHBL [id number] MHBL 18:19:00 09:53:00 RONNIE 2021-12-01 2021-12-01 Outpatient COH COH PIJFJKR ZIB COH 00:00:00 00:00:00 [id number] 2021-11-26 Outpatient E CAROLINE MHBL MED [id number] MHBL 10:37:00 19:12:00 MONSE 2021-11-24 2021-11-24 (TEL) STLMLC STLMLC [id number] Co mmon 00:00:00 00:00:00 [facility] 2021-10-16 2021-11-03 Inpatient 3 NATHANIEL, ENCPL GILDA [id number] [facility] 23:26:00 21:40:00 CHILANGO 0519 [facility] [place] [facility] 2021-11-03 2021-11-03 OFFICE STLMLC STLMLC [id number] Co mmon 00:00:00 00:00:00 VISIT NEW [facility] PT LEVEL 4 - CHI [facility] 2021-10-17 2021-10-17 (TEL) STLMLC STLMLC [id number] Co mmon 00:00:00 00:00:00 [facility] 2021-08-12 2021-08-12 (TEL) STLMLC STLMLC [id number] Co mmon 00:00:00 00:00:00 [facility] 2021-07-28 2021-07-28 OFFICE STLMLC STLMLC [id number] Co mmon 00:00:00 00:00:00 VISIT [facility] ESTAB PT - CHI LEVEL 4 [facility] 2021-07-28 2021-07-28 SUB ANNUAL STLMLC STLMLC [id number] Common 00:00:00 00:00:00 MCR [facility] WELLNESS - CHI VISIT [facility] 2021-06-12 2021-06-12 (TEL) STLMLC STLMLC [id number] Co mmon 00:00:00 00:00:00 [facility] 2021-05-21 2021-05-21 (TEL) STLMLC STLMLC [id number] Co mmon 00:00:00 00:00:00 [facility] 2021-04-28 2021-04-28 OFFICE STLMLC STLMLC [id number] Co mmon 00:00:00 00:00:00 VISIT [facility] PT - CHI LEVEL 4 [facility] 2021-03-26 2021-03-26 (TEL) STLMLC STLMLC [id number] Co mmon 00:00:00 00:00:00 [facility] 2021-03-12 2021-03-12 OFFICE STLMLC STLMLC [id number] Co mmon 00:00:00 00:00:00 VISIT [facility] PT - CHI LEVEL 4 [facility] 2021-02-10 2021-02-10 Outpatient STLMLC STLMLC [id number] Common 00:00:00 00:00:00 [facility] 2021-01-31 2021-01-31 Outpatient STLMLC STLMLC [id number] Common 00:00:00 00:00:00 [facility] 2021-01-13 2021-01-13 Outpatient STLMLC STLMLC [id number] Common 00:00:00 00:00:00 [facility] 2021-01-08 2021-01-08 Outpatient STLMLC STLMLC [id number] Common 00:00:00 00:00:00 [facility] 2020-12-31 2020-12-31 Outpatient STLMLC STLMLC [id number] Common 00:00:00 00:00:00 [facility] 2020-12-11 2020-12-11 Outpatient STLMLC STLMLC [id number] Common 00:00:00 00:00:00 [facility] 2020-08-19 2020-08-19 Outpatient STLMLC STLMLC [id number] Common 00:00:00 00:00:00 [facility] 2020-07-19 2020-07-19 Outpatient STLMLC STLMLC [id number] Common 00:00:00 00:00:00 [facility] 2020-07-15 2020-07-15 Outpatient STLMLC STLMLC [id number] Common 00:00:00 00:00:00 [facility] 2020-06-14 2020-06-14 Outpatient STLMLC STLMLC [id number] Common 00:00:00 00:00:00 [facility] 2020-06-05 2020-06-05 Outpatient STLMLC STLMLC [id number] Common 00:00:00 00:00:00 [facility] 2020-04-23 2020-04-23 Outpatient STLMLC STLMLC [id number] Common 00:00:00 00:00:00 [facility] 2020-04-22 2020-04-22 Outpatient STLMLC STLMLC [id number] Common 00:00:00 00:00:00 [facility] 2020-04-17 2020-04-17 Outpatient STLMLC STLMLC [id number] Common 00:00:00 00:00:00 [facility] 2020-01-15 2020-01-15 [id number] Common 10:45:00 10:45:[address] [facility] 2019-10-16 2019-10-16 [facility] [id number] Common 13:00:00 13:00:[address] [facility] 2019-07-17 2019-07-17 [facility] [id number] Common 13:45:00 13:45:[address] [facility] 2019-06-14 2019-06-14 [facility] [id number] Common 11:45:00 11:45:[address] [facility] 2019-06-07 2019-06-07 [facility] [id number] Common 11:57:00 11:57:[address] [facility] 2019-05-17 2019-05-17 [facility] [id number] Common 11:30:00 11:30:[address] [facility] 2019-04-24 2019-04-24 Out[facility] [id number] Common 14:52:00 14:52:[address] [facility] 2019-04-19 2019-04-19 [facility] [id number] Common 14:45:00 14:45:[address] [facility] 2019-04-06 2019-04-06 Out[facility] [id number] Common 08:35:00 08:35:[address] [facility] 2019-04-04 2019-04-04 Out[facility] [id number] Common 08:34:00 08:34:[address] [facility] 2019-03-08 2019-03-08 Out[facility] [id number] Common 10:57:00 10:57:[address] [facility] 2019-02-20 2019-02-20 Out[facility] [id number] Common 14:00:00 14:00:[address] [facility] Results Test Description Test Time Test Comments Results Result Comments Source HEMOGLOBIN A1C 2021-07-28 00:00:00 Test Item Value Reference Range Interpretation Comme nts A1C (test code = 4548-4) 8.8 HEMOGLOBIN [id number] 00:00:00 Test Item Value Reference Range Interpretation Comments A1C (test code = 4548-4) 8.3 HEMOGLOBIN [id number] 00:00:00 Test Item Value Reference Range Interpretation Comments A1C (test code = 4548-4) 10.3
[2022-07-27 20:28] LABS: Hematocrit 10.4 % (39.6-49.0); MCV 101.3 fL (80-100); MPV 7.1 fL (7.6-11.3); RBC Red Blood Cell Count 1.02 M/uL (4.33-5.43)
[2022-07-27] MEDS ORDERED: NA CHLORIDE 0.9% 250 ML ONE (20:37)
[2022-07-27 20:41] LABS: Potassium 3.4 mmol/L (3.5-5.1)
[2022-07-27 20:43] LABS: Troponin High Sensitivity 110.3 pg/mL (<58.9)
--- NOTE | 2022-07-27 20:45 | EDPHYS ---
Physician Documentation [facility] Name: Guzman Mayers Age: 77 yrs Sex: Male : 1945 Arrival Date: 07/27/2022 Time: 19:35 Bed 4 Private MD: ED Physician Hilda Fortune HPI: 07/27 20:32 This 77 yrs old Male presents to ER via Wheelchair with complaints of Blood sp3 Transfusion. 20:32 77-year-old male with extensive past medical history well-known to the ED including sp3 dialysis, diabetes, COPD, CHF, ADD now presents with chief complaint profound anemia sent by his GI doctor Dr. Spear for blood transfusion as well as admission and colonoscopy to be performed here in the hospital. Initially patient was being worked up for outpatient colonoscopy and during procedure work-up, his anemia was discovered. He has had multiple blood transfusions in the past and is familiar with the process. He has generalized weakness and near syncope as his only symptoms. He denies fever, headache, neck pain, chest pain, shortness of breath, abdominal pain, nausea, vomiting, diarrhea, visible bleeding or any other symptoms on ROS at this time. Patient sees Dr. Naveed Fortune as his primary care physician.. Historical: - Allergies: 19:41 Codeine; jh5 19:41 GABAPENTIN; jh5 - PMHx: 19:41 ADD/ADHD; CHF; CKD; COPD; Diabetes - IDDM; Dialysis; dialysis tues, thurs, sat, uses o2 jh5 when sleeping.; High Cholesterol; HTN; Hypertension; - Immunization history:: Adult Immunizations up to date. - Social history:: Smoking status: Patient denies any tobacco usage or history of. ROS: 20:37 Eyes: Negative for injury, pain, redness, and discharge, Neck: Negative for injury, sp3 pain, and swelling, Cardiovascular: Negative for chest pain, palpitations, and edema, Respiratory: Negative for shortness of breath, cough, wheezing, and pleuritic chest pain, Abdomen/GI: Negative for abdominal pain, nausea, vomiting, diarrhea, and constipation, Back: Negative for injury and pain, Neuro: Negative for headache, weakness, numbness, tingling, and seizure. 20:37 All other systems are negative. Exam: 20:38 Constitutional: This is a well developed, well nourished patient who is awake, alert, sp3 and in no acute distress. Head/Face: Normocephalic, atraumatic. Neck: Trachea midline, no thyromegaly or masses palpated, and no cervical lymphadenopathy. Supple, full range of motion without nuchal rigidity, or vertebral point tenderness. No Meningismus. Chest/axilla: Normal chest wall appearance and motion. Nontender with no deformity. No lesions are appreciated. Cardiovascular: Regular rate and rhythm with a normal S1 and S2. No gallops, murmurs, or rubs. Normal PMI, no JVD. No pulse deficits. Respiratory: Lungs have equal breath sounds bilaterally, clear to auscultation and percussion. No rales, rhonchi or wheezes noted. No increased work of breathing, no retractions or nasal flaring. Abdomen/GI: Soft, non-tender, with normal bowel sounds. No distension or tympany. No guarding or rebound. No evidence of tenderness throughout. MS/ Extremity: Pulses equal, no cyanosis. Neurovascular intact. Full, normal range of motion. Psych: Awake, alert, with orientation to person, place and time. Behavior, mood, and affect are within normal limits. 20:38 Eyes: Pale conjunctiva noted.. 20:40 ECG was reviewed by the Attending Physician. EKG demonstrates paced rhythm at 60 bpm sp3 with adequate capture and no visible abnormalities. Vital Signs: 19:36 BP 94 / 40; Pulse 68; Resp 20; Temp 98.6; Pulse Ox 78% ; Weight 73.94 kg; Height 5 ft. jh5 10 in. (177.80 cm); Pain 0/10; 20:12 BP 105 / 44; Pulse 57; Resp 20 S; Pulse Ox 100% on 2 lpm NC; as6 20:48 BP 105 / 47; Pulse 57; Resp 14 S; Pulse Ox 97% on 2 lpm NC; as6 22:01 BP 119 / 44; Pulse 60; Resp 15 S; Temp 98.2(TE); Pulse Ox 100% on 2 lpm NC; as6 19:36 Body Mass Index 23.39 (73.94 kg, 177.80 cm) 5 MDM: 19:52 Patient medically screened. sp3 20:38 Data reviewed: vital signs, nurses notes, diagnostic data from outside facility, old sp3 medical records, lab test result(s), EKG. ED course: 37-year-old male with unknown blood loss currently being worked up by gastroenterology. Patient will require 3 units of packed red blood cells and inpatient admission for a.m. colonoscopy as directed by GI. I am not suspecting profound exsanguination, hemodynamic shock, or any other critical findings at this time.. 07/27 19:47 Order name: Basic Metabolic Panel; Complete Time: 20:44 3 07/27 19:47 Order name: CBC with Diff; Complete Time: 20:47 sp3 07/27 19:47 Order name: PT-INR 3 07/27 19:47 Order name: Troponin HS; Complete Time: 20:44 3 07/27 19:47 Order name: Type And Screen 3 07/27 20:48 Order name: SARS RAPID as6 07/27 19:47 Order name: EKG; Complete Time: 19:48 3 07/27 21:39 Order name: Ferritin [facility] 07/27 21:39 Order name: Haptoglobin [facility] 07/27 21:39 Order name: Lactic Dehydrogenase [facility] 07/27 21:39 Order name: Transferrin Sat/Iron Binding [facility] 07/27 21:39 Order name: Vitamin B12 Level [facility] 07/27 21:39 Order name: BB Add On [facility] 07/27 21:42 Order name: Packed RBCs (Additional Unit) [facility] 07/27 19:47 Order name: Cardiac monitoring; Complete Time: 20:12 3 07/27 19:47 Order name: EKG - Nurse/Tech; Complete Time: 20:12 3 07/27 19:47 Order name: IV Saline Lock; Complete Time: 20:12 3 07/27 19:47 Order name: Labs collected and sent; Complete Time: 20:12 sp3 Administered Medications: No medications were administered Disposition Summary: 07/27/22 20:44 Hospitalization Ordered Hospitalization Status: Inpatient Admission sp3 Provider: Mando Tidwell Location: Telemetry/[facility] (Inpatient) sp3 Condition: Stable sp3 Problem: an acute exacerbation sp3 Symptoms: have worsened sp3 Bed/Room Type: Standard 3 Room Assignment: 212(07/27/22 22:00) Diagnosis - Anemia, unspecified sp3 - Unknown blood loss sp3 Forms: - Medication Reconciliation Form sp3 - SBAR form sp3 Signatures: Dispatcher [employer] EDIsidra Richmond RN RN mw Len, Bryan, MARKETING RESEARCH COORDINATOR-C MARKETING RESEARCH COORDINATOR-Cla1 Hilda Fortune MD MD sp3 Caitlin Ortiz RN RN jh5 Corrections: (The following items were deleted from the chart) 22:00 20:44 spLeslie solorio
--- NOTE | 2022-07-27 20:45 | ER ---
Nurse's Notes [facility] Name: Guzman Mayers Age: 77 yrs Sex: Male : 1945 Arrival Date: 07/27/2022 Time: 19:35 Bed 4 Private MD: Diagnosis: Anemia, unspecified;Unknown blood loss Presentation: 07/27 19:36 Chief complaint: Patient states: Dr BLAKE is GI says HGB is 4.1 and to come in for blood jh5 transfusion. Coronavirus screen: Vaccine status: Patient reports receiving the 2nd dose of the covid vaccine. Client denies travel out of the [place] in the last 14 days. Ebola Screen: Patient negative for fever greater than or equal to 101.5 degrees Fahrenheit, and additional compatible Ebola Virus Disease symptoms Patient denies exposure to infectious person. Patient denies travel to an Ebola-affected area in the 21 days before illness onset. Initial Sepsis Screen: Does the patient meet any 2 criteria? No. Patient's initial sepsis screen is negative. Does the patient have a suspected source of infection? No. Patient's initial sepsis screen is negative. Risk Assessment: Do you want to hurt yourself or someone else? Patient reports no desire to harm self or others. 19:36 Method Of Arrival: Wheelchair jh5 19:36 Acuity: CHICHO 3 jh5 20:13 Onset of symptoms is unknown. as6 Triage Assessment: 19:41 General: Appears uncomfortable, Behavior is calm, cooperative, appropriate for age. jh5 Pain: Denies pain. Historical: - Allergies: 19:41 Codeine; jh5 19:41 GABAPENTIN; jh5 - PMHx: 19:41 ADD/ADHD; CHF; CKD; COPD; Diabetes - IDDM; Dialysis; dialysis tues, thurs, sat, uses o2 jh5 when sleeping.; High Cholesterol; HTN; Hypertension; - Immunization history:: Adult Immunizations up to date. - Social history:: Smoking status: Patient denies any tobacco usage or history of. Screenin:13 [facility] ED Fall Risk Assessment (Adult) Score/Fall Risk Level 0 - 2 = Low Risk. Abuse as6 screen: Denies threats or abuse. Denies injuries from another. Nutritional screening: No deficits noted. Tuberculosis screening: No symptoms or risk factors identified. Assessment: 20:13 General: Appears ill, Behavior is calm, cooperative, Reports feeling ill for fatigue as6 for. Pain: Denies pain. Neuro: Level of Consciousness is awake, alert, obeys commands, Oriented to person, place, time, situation, Reports weakness. Respiratory: Respiratory effort is even, unlabored. Derm: Skin is dusky. 20:49 Reassessment: Patient appears in no apparent distress at this time. as6 22:06 General: attempted to call report . as6 23:33 General: Marjorie (daughter in law) [phone]. as6 Vital Signs: 19:36 BP 94 / 40; Pulse 68; Resp 20; Temp 98.6; Pulse Ox 78% ; Weight 73.94 kg; Height 5 ft. jh5 10 in. (177.80 cm); Pain 0/10; 20:12 BP 105 / 44; Pulse 57; Resp 20 S; Pulse Ox 100% on 2 lpm NC; as6 20:48 BP 105 / 47; Pulse 57; Resp 14 S; Pulse Ox 97% on 2 lpm NC; as6 22:01 BP 119 / 44; Pulse 60; Resp 15 S; Temp 98.2(TE); Pulse Ox 100% on 2 lpm NC; as6 19:36 Body Mass Index 23.39 (73.94 kg, 177.80 cm) 5 ED Course: 19:35 Patient arrived in ED. ag3 19:41 Triage completed. 5 19:41 Arm band placed on right wrist. 5 19:44 Hilda Fortune MD is Attending Physician. sp3 19:55 Manolo Ramirez, GILSON is Primary Nurse. as6 20:10 Consent for blood and/or blood product transfusion explained by staff, explained by as6 physician, signed by patient. 20:12 Inserted saline lock: 18 gauge in right antecubital area, using aseptic technique. as6 Blood collected. Done by ERT. 20:13 Bed in low position. Call light in reach. Side rails up X2. Client placed on continuous as6 cardiac and pulse oximetry monitoring. NIBP monitoring applied. Warm blanket given. 20:44 Mando Tidwell MD is Hospitalizing Provider. sp3 22:02 No provider procedures requiring assistance completed. Patient admitted, IV remains in as6 place. Administered Medications: No medications were administered Medication: 20:13 VIS not applicable for this client. as6 Outcome: 20:44 Decision to Hospitalize by Provider. sp3 22:05 Condition: stable as6 22:05 Instructed on the need for admit. 22:59 Admitted to Med/surg accompanied by nurse, via stretcher, room 212, with oxygen, on as6 monitor, with chart, Report called to Jacob RIGGINS 23:06 Patient left the ED. as6 Signatures: Anisha Reveles3 Hilda Fortune MD MD sp3 Caitlin Ortiz, RN RN jh5 Manolo Ramirez, RN RN as6
[2022-07-27 21:11] LABS: Protime INR 1.31
[2022-07-27 21:18] LABS: SARS-CoV-2 Antigen Rapid Res Negative (Negative)
--- NOTE | 2022-07-27 21:44 | P.HP ---
Certification for Inpatient Patient admitted to: Inpatient With expected LOS: >2 Midnights Patient will require the following post-hospital care: None Practitioner: I am a practitioner with admitting privileges, knowledge of patient current condition, hospital course, and medical plan of care. Services: Services provided to patient in accordance with Admission requirements found in Title 42 Section 412.3 of the Code of Federal Regulations Patient History Date of Service: 07/27/22 Reason for admission: Severe anemia, ESRD History of Present Illness: 77-year-old male with history of ESRD on HD MWF, chronic respiratory failure on home O2, chronic diastolic congestive heart failure, anemia of chronic disease, hypertension, hyperlipidemia, A-fib, insulin-dependent diabetes presented to the emergency department after receiving outpatient lab finding low hemoglobin. He was referred here by his GI doctor who reported that he had a hemoglobin of 4.9, they requested he be sent here for transfusion followed by endoscopy/colonoscopy. Patient denies any melena, hematochezia, hematemesis. He does report that he has near daily vomiting/nausea that is improved with Tums. His labs were repeated in the ER his hemoglobin came back at 3.8, MCV 101.3, MCH 36.7, MCHC 36.2, RDW 24.2 platelets 204. His troponin was mildly elevated 110.3. He had dialysis today which he did complete. He denies any abdominal pain with no tenderness on exam. Will admit for further evaluation and management of severe anemia. Patient reports receiving a blood transfusions last year his last colonoscopy was 3 years ago he has never had an EGD. Allergies codeine Allergy (Verified 10/15/21 23:40) Hallucinations gabapentin Adverse Reaction (Verified 10/15/21 23:40) Hallucinations Home Medications: Atorvastatin Calcium 1 tab PO BEDTIME 10/16/21 Insulin Glargine,Hum.rec.anlog [Basaglar Kwikpen U-100] 50 unit SQ DAILY 10/16/21 Sertraline HCl 50 mg PO DAILY 05/26/22 Aspirin [Aspirin EC 81 MG] 81 mg PO DAILY #30 tab 05/28/22 Nepro Shake [Nepro*] 237 ml PO BID #60 can 05/28/22 Metoprolol Tartrate [Lopressor*] 12.5 mg PO BID 6AM 6PM #30 tab 06/20/22 - Past Medical/Surgical History Diabetic: Yes -: Hypertension -: Hyperlipidemia -: Diabetes type 2, insulin dependent -: End-stage renal disease, hemodialysis-Wednesday, Wednesday, Wednesday -: Diastolic CHF -: COPDon home O2 -: Anemia of chronic disease -: skin graft for elctrical persaud - BLE 1970s -: Right shoulder surgery -: bilateral leg surgery -: 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 He has 3 children - Family History mother and father Notes: adopted - Social History Alcohol use: No CD- Drugs: No Caffeine use: No Place of Residence: Home Review of Systems 10-point ROS is otherwise unremarkable General: Weakness, Malaise Respiratory: Shortness of Breath Physical Examination - Physical Exam General: Alert, In no apparent distress, Oriented x3 HEENT: Atraumatic, PERRLA, Other (Mucous membranes pale), EOMI, Sclerae lv cteric Neck: Supple, 2+ carotid pulse no bruit, No LAD, Without JVD or thyroid abnormality Respiratory: Clear to auscultation bilaterally, Normal air movement Cardiovascular: Regular rate/rhythm, Normal S1 S2 Gastrointestinal: Normal bowel sounds, No tenderness Musculoskeletal: No tenderness Integumentary: No rashes Neurological: Normal speech, Normal strength at 5/5 x4 extr, Normal tone, Normal affect - Studies Laboratory Data (last 24 hrs) 07/27/22 19:58: PT 14.4 H, INR 1.31 07/27/22 19:58: WBC 4.00 L, Hgb 3.8 L* D, Hct 10.4 L*, Plt Count 204 07/27/22 19:58: Sodium 133 L, Potassium 3.4 L D, BUN 24 H, Creatinine 2.80 H, Glucose 323 H Assessment and Plan - Plan Assessment: Severe anemia/acute on chronic anemia of chronic disease ESRD on HD MWF Chronic respiratory failure with underlying chronic diastolic congestive heart failure/COPD on home O22.5 L Chronic A-fib Hypertension Hyperlipidemia Diabetes mellitus type 2insulin-dependent with hyperglycemia Plan: Severe anemia/acute on chronic anemia of chronic disease Hemoglobin 3.8, was 4.9 earlier today. Patient denies any melena, hematochezia, hematemesis. He reports he last had a colonoscopy approximately 3 years ago and has never had EGD. He will be transfused 2 units PRBC now given his marked anemia. He did complete dialysis today, nephrology will be consulted as he may require dialysis tomorrow. N.p.o. after midnight in anticipation of EGD/colo noscopy performed during hospitalization. He reports he needed approximately 8 units of blood to be transfused last year throughout the year. We will treat with PPI given possibility of upper GI bleed. Vital signs are stable at this time. ESRD on HD MWF Nephrology consult in place. Chronic respiratory failure with underlying chronic diastolic congestive heart failure/COPD on home O22.5 L Continue home O2, no acute exacerbation noted. Chronic A-fib Noted, patient taking daily aspirin but no chronic anticoagulation given his severe anemia. Hypertension Hold oral antihypertensives given severe anemia, possible GI bleed. Hyperlipidemia Continue home meds Diabetes mellitus type 2insulin-dependent with hyperglycemia A1c in the morning, sliding scale insulin. DVT PPX: SCD Code status:Full Discharge Plan: Home Plan to discharge in: 48 Hours - Advance Directives Does patient have a Living Will: No Does patient have a Durable POA for Healthcare: Yes - Code Status/Comfort Care Code Status Assessed: Yes (Full code) Critical Care: No Time Spent Managing Pts Care (In Minutes): 70
[2022-07-27] MEDS ORDERED: NA CHLORIDE 0.9% 250 ML IV SCH (22:00)
[2022-07-27 22:58] LABS: Ferritin 2242.4 ng/mL (26-388)
[2022-07-27] MEDS ORDERED: SODIUM CHLORIDE 0.9% 10ML INJ IV PRN (23:33)
[2022-07-27] MEDS ORDERED: ONDANSETRON 4 MG/2 ML VIAL IV PRN (23:33)
[2022-07-28 01:32] VITALS: BMI 23.3
[2022-07-28] MEDS ORDERED: NA CHLORIDE 0.9% 250 ML ONE ×2 (01:36→10:23)
[2022-07-28] MEDS: PANTOPRAZOLE 40 MG INJ IVP SCH ×3 (01:38→21:15)
[2022-07-28 07:08] LABS: Lymphocytes % 31.8 % (15.3-44.8); MCV 96.1 fL (80-100); RBC Red Blood Cell Count 1.79 M/uL (4.33-5.43)
[2022-07-28 07:17] LABS: Hematocrit 17.2 % (39.6-49.0)
[2022-07-28 07:26] LABS: Potassium 3.8 mmol/L (3.5-5.1)
[2022-07-28] MEDS: INSULIN -REGULAR HUMAN 50 UNIT/0.5 ML ML SQ SCH ×4 (07:30→21:20)
[2022-07-28 07:36] LABS: Troponin High Sensitivity 107.6 pg/mL (<58.9)
[2022-07-28] MEDS ORDERED: INFLUENZA VACCINE (for 6+ mo) 0.5 ML DOSE IMVAC ONE (08:00)
[2022-07-28] MEDS ORDERED: PNEUMOCOCCAL VACCINE 0.5 ML IMVAC ONE (08:00)
[2022-07-28 10:19] LABS: Anisocytosis 2+; Blood Morphology Comment NOTED (NOT SEEN); Platelet Estimate DECR; White Blood Cell Scan OK (OK)
--- NOTE | 2022-07-28 12:50 | EKG ---
Test Date: 2022-07-27 Test Time: 20:04:32 Metalizer: MEASUREMENT RESULTS: Intervals: Rate: 58 WV: 186 QRSD: 182 QT: 532 QTc: 522 Ten Sleep: P: WV: 186 QRS: -80 T: 22 INTERPRETIVE STATEMENTS: Sinus bradycardia with premature atrial complexes with aberrant conduction Left axis deviation Right bundle branch block Septal infarct, age undetermined Abnormal ECG Compared to ECG 06/14/2022 15:21:46 Atrial premature complex(es) now present Aberrant conduction of supraventricular beat(s) now present Left-axis deviation now present Atrial flutter no longer present Myocardial infarct finding still present Electronically Signed On 07-28-22 12:49:18 [employer] by Chico Henriquez
[2022-07-28] MEDS ORDERED: NA CHLORIDE 0.9% 500 ML ONE (13:48)
[2022-07-28] MEDS ORDERED: EPOETIN ALFA 10,000 UNIT/ML VIAL IV SCH (14:30)
[2022-07-28] MEDS ORDERED: LIDOCAINE 1% MPF 5 ML VIAL ONE (14:38)
[2022-07-28] MEDS ORDERED: propofoL 200 MG/20 ML VIAL IV ONE (14:38)
--- NOTE | 2022-07-28 16:56 | CON ---
Date of Consultation: 07/28/2022 Reason For Consultation: Elevated BUN and creatinine, end-stage renal disease, fluid management. History Of Present Illness: This is a pleasant 77-year-old gentleman, well known to me from dialysis with significant past medical history of diabetes complicated with neuropathy and nephropathy, end-s tage renal disease, on hemodialysis, CAD complicated with congestive heart failure, ejection fraction of 44%, hyperlipidemia, hypertension, the patient came to the hospital because of symptomatic anemia , hemoglobin down to the 3. The patient admitted over the night, received 2 units of blood transfusi on. Hemoglobin is still down to the 6. The patient denied any chest pain. Complaining from shortne ss of breath and fatigue. For that reason, we have been consulted. We took the patient for urgent d ialysis. We will challenge the patient and we arranged for 2 units of blood transfusion to be transf used during the dialysis. The patient seen on dialysis. Still on nasal cannula. Still feeling weak . No chest pain. Past Medical History: Includes; 1.Hypertension. 2.Hyperlipidemia. 3.CAD with congestive heart failure, ejection fraction of 40%. 4.Diabetes complicated with neuropathy and nephropathy. 5.End-stage renal disease, on hemodialysis. 6.Possible GI bleed with recurrent admission. Past Surgical History: Includes; 1.EGD. 2.AV fistula creation. 3.Angiogram. Social History: Denied smoking, denied drinking, denied drugs abuse. Review of Systems: Head and Neck: No red eye. No ear pain. GI: Epigastric pain. : No polyuria. No dysuria. No hematuria. Finish Off Operator: Not applicable. Respiratory: Has shortness of breath. Cardiovascular: Has orthopnea. Endocrine: No polydipsia. Skin: No rash. Neuro: Generalized fatigue. Musculoskeletal: Has weakness and leg pain. Home Medications: Include Zoloft, metoprolol, atorvastatin, and aspirin. Current Medications: Pantoprazole and Zofran. Physical Examination: General: When I saw the patient; the patient lying in bed, on nasal cannula. Vital Signs: Blood pressure 155/67, pulse of 57, afebrile. Chest: Crackles bilateral base. Heart: S1, S2. Systolic murmur. Abdomen: Soft, nontender. No guarding or rebound. Extremities: Trace edema. Neurologic: Alert. No focality. Laboratory Data: Upon admission; hemoglobin 3.8, currently hemoglobin 6.1, WBC 3.2. Sodium 135, pot assium 3.8, bicarb 31, BUN 31, creatinine 3.3, calcium 9.4. Assessment And Plan: 1.End-stage renal disease with symptomatic anemia and over volume. We arranged for urgent dialysis. We transfused 2 L, managed to remove 3 L ultrafiltration. The patient tolerated well. We will res ume dialysis as TTS and we will follow up fluid status for the patient. 2.Hypertension. We will utilize blood pressure for more ultrafiltration. 3.Anemia of chronic kidney disease/possible gastrointestinal bleed. The patient received transfusio n, total of 4 units. We will resume LUANNE and we will follow up with GI. Continue PPI for the time be ing. 4.Coronary artery disease with congestive heart failure. We will try to establish better volume con trol with ultrafiltration. 5.Secondary hyperparathyroidism. The patient currently n.p.o. We will follow up with GI. We will hold any binder for the time being. 6.Diabetes as by primary. AL/BILLY Voice ID: [id number] Report ID: [id number]
--- NOTE | 2022-07-28 19:05 | P.PN ---
Subjective Date of Service: 07/28/22 Chief Complaint: Severe anemia, ESRD No acute events overnight. He states that he feels well this morning. He reports generalized weakness/fatigue. He denies any chest pain or shortness of breath. He denies any obvious bleeding, specifically denying any hemoptysis, hematochezia, hematuria, or melena. Review of Systems 10-point ROS is otherwise unremarkable General: Weakness (generalized) Physical Examination - Vital Signs Temperature: 98.2 F Blood Pressure: 144/54 Pulse: 58 Respirations: 14 Pulse Ox (%): 98 - Physical Exam General: Alert, In no apparent distress, Oriented x3 HEENT: Atraumatic, EOMI, Sclerae nonicteric Neck: JVD not distended Respiratory: Clear to auscultation bilaterally, Normal air movement Cardiovascular: Normal pulses, Regular rate/rhythm, No gallops, No rubs, No murmurs, Edema (trace BLE) Gastrointestinal: Normal bowel sounds, Soft and benign, Non-distended, No tenderness, No rebound, No guarding Musculoskeletal: No clubbing Integumentary: No rashes Neurological: Normal speech, Normal affect - Studies Laboratory Data (last 24 hrs) 07/27/22 19:58: PT 14.4 H, INR 1.31 07/27/22 19:58: WBC 4.00 L, Hgb 3.8 L* D, Hct 10.4 L*, Plt Count 204 07/27/22 19:58: Sodium 133 L, Potassium 3.4 L D, BUN 24 H, Creatinine 2.80 H, Glucose 323 H Assessment And Plan - Plan # Severe Acute on Chronic Anemia of Chronic Kidney Disease # End-Stage Renal Disease on MWF iHD - Consulted Gastroenterology and spoke with Dr. Garibay - recommendations appreciated - He will perform EGD today if he is able to be dialyzed prior to the procedure - Consulted Nephrology and spoke with Dr. Sanchez - recommendations appreciated - Will dialyze this morning and transfuse an additional 2 units pRBCs during dialysis - S/P 3 units pRBCs overnight - Serial H&H - Hgb trend: 3.8 -> 6.1 - Transfuse for Hgb < 7.0 - 2 large bore IVs - Pantoprazole 40 mg IV BID # Suspected Type II Non-ST Segment Elevation Myocardial Infarction (Demand Ischemia) secondary to above # Hypertension # Dyslipidemia - Evaluation thus far: - EKG: reportedly without STEMI criteria, trend - Serial troponin: 110.3 -> 107.6 -> 112.2 - [facility] (06/19/2022) = "1. Moderate coronary artery disease, heavily calcified vessels with the exception of the chronic total occlusion in proximal left circumflex, but the artery is getting collaterals from the left anterior descending and the right coronary artery. 2. Elevated left ventricular end- diastolic pressure. Recommendations: Aggressive medical management" - Management plan: - Consulted Cardiology - recommendations appreciated - Hold home meds pending GI evaluation # Chronic Atrial Fibrillation/Flutter His [id number] = 5 (CHF=1, HTN=1, Age>75=2, DM=1), which warrants anticoagulation. However, based on recurrent anemia, it was elected not to start anticoagulation. - Appreciate Cardiology recs # Chronic Respiratory Failure secondary to Chronic Obstructive Pulmonary Disease on Home Oxygen (2.5 L) - At baseline, no evidence of exacerbation # Type II Diabetes Mellitus - Correction scale insulin Mando Tidwell M.D.
[2022-07-28 19:33] LABS: Hematocrit 21.9 % (39.6-49.0)
[2022-07-29 03:45] LABS: Absolute Lymphocytes (CBC) 1.1 K/uL (0.7-4.9); Hematocrit 22.4 % (39.6-49.0); Lymphocytes % 28.8 % (15.3-44.8); MCV 92.8 fL (80-100); RBC Red Blood Cell Count 2.42 M/uL (4.33-5.43)
[2022-07-29 03:59] LABS: Potassium 3.7 mmol/L (3.5-5.1)
[2022-07-29] MEDS: INSULIN -REGULAR HUMAN 50 UNIT/0.5 ML ML SQ SCH ×4 (07:30→21:03)
[2022-07-29] MEDS: PANTOPRAZOLE 40 MG INJ IVP SCH ×2 (09:59→21:04)
--- NOTE | 2022-07-29 11:15 | P.PN ---
Subjective Date of Service: 07/29/22 Chief Complaint: Severe anemia, ESRD No acute events overnight. He states that he is much improved this morning. He denies any obvious bleeding. He denies any chest pain or shortness of breath. He would like to be discharged home. Per Dr. Garibay, his EGD revealed a hiatal hernia with gastritis/duodenitis, diverticulosis, and duodenal angioectasias. He did not feel that these findings explained his anemia. He has cleared him for discharge home with outpatient Hematology evaluation. Per Dr. Sanchez, he would like to monitor him for an additional day prior to discharge. Review of Systems 10-point ROS is otherwise unremarkable General: Malaise Physical Examination - Vital Signs Temperature: 97.9 F Blood Pressure: 137/58 Pulse: 58 Respirations: 16 Pulse Ox (%): 100 Assessment And Plan - Plan - Physical Exam General: Alert, In no apparent distress, Oriented x3 HEENT: Atraumatic, Sclerae nonicteric Neck: JVD not distended Respiratory: Clear to auscultation bilaterally, Normal air movement Cardiovascular: Normal pulses, Regular rate/rhythm, No murmurs, Edema (trace BLE) Gastrointestinal: Normal bowel sounds, Soft, Non-distended, No tenderness Musculoskeletal: No clubbing Integumentary: No rashes Neurological: Normal speech, Normal affect # Severe Acute on Chronic Anemia of Chronic Kidney Disease # End-Stage Renal Disease on MWF iHD - Consulted Gastroenterology and spoke with Dr. Garibay - recommendations appreciated - EGD revealed a hiatal hernia with gastritis/duodenitis, diverticulosis, and duodenal angioectasias - Consulted Nephrology and spoke with Dr. Sanchez - recommendations appreciated - He would like to monitor his H&H for an additional day - S/P 5 units pRBCs over this hospitalization - Serial H&H - Hgb trend: 3.8 -> 6.1 -> 7.8 -> 8.1 - Transfuse for Hgb < 7.0 - 2 large bore IVs - Pantoprazole 40 mg IV BID # Suspected Type II Non-ST Segment Elevation Myocardial Infarction (Demand Ischemia) secondary to above # Hypertension # Dyslipidemia - Evaluation thus far: - EKG: reportedly without STEMI criteria, trend - Serial troponin: 110.3 -> 107.6 -> 112.2 - [facility] (06/19/2022) = "1. Moderate coronary artery disease, heavily calcified vessels with the exception of the chronic total occlusion in proximal left circumflex, but the artery is getting collaterals from the left anterior descending and the right coronary artery. 2. Elevated left ventricular end- diastolic pressure. Recommendations: Aggressive medical management" - Management plan: - Consulted Cardiology - recommendations appreciated - Hold home meds pending GI evaluation # Chronic Atrial Fibrillation/Flutter His [id number] = 5 (CHF=1, HTN=1, Age>75=2, DM=1), which warrants anticoagulation. However, based on recurrent anemia, it was elected not to start anticoagulation. - Appreciate Cardiology recs # Chronic Respiratory Failure secondary to Chronic Obstructive Pulmonary Disease on Home Oxygen (2.5 L) - At baseline, no evidence of exacerbation # Type II Diabetes Mellitus - Correction scale insulin Mando Tidwell M.D.
--- NOTE | 2022-07-29 13:07 | PN ---
Date of Progress Note: 07/29/2022 Subjective: The patient was admitted for symptomatic anemia. The patient had EGD, found to have ___ , status post cauterization. Plan for capsule endoscopy. The patient has been stable. Physical Examination: Vital Signs: Blood pressure 137/58, pulse of 58, afebrile. Chest: Clear to auscultation. Heart: S1, S2. Regular. Abdomen: Soft, nontender. Extremity: Trace edema. Neurologic: Alert. No focality. Laboratory Data: Hemoglobin 8.1. Sodium 134, potassium 3.7, bicarb 31, BUN 25, creatinine 2.8, calc ium 9.6. Current Medications: The patient on include Epogen, Zofran, pantoprazole. Assessment And Plan: 1.End-stage renal disease. We will continue the patient on dialysis. We will arrange for dialysis tomorrow and we will follow up. 2.Hypertension, controlled, optimal. We will keep utilizing the blood pressure for more ultrafiltra tion. 3.Anemia of chronic kidney disease/GI bleed, status post transfusion. Hemoglobin has been stable to day. We will watch for another 24 hours. The patient is going to need a capsule endoscopy and we wi ll evaluate for Hematology evaluation. 4.Secondary hyperparathyroidism, stable. We will follow up. 5.Congestive heart failure with exacerbation. The patient currently normal volume, back to dialysis 3 times a week. VISHAL Voice ID: [id number] Report ID: [id number]
--- NOTE | 2022-07-29 15:21 | RAD REPORT ---
EXAM DESCRIPTION: RAD - Small Bowel Series - 07/29/2022 3:12 pm CLINICAL HISTORY: GI bleed? Abdominal pain COMPARISON: Barium Swallow Modified dated 01/19/2022 FINDINGS: Recreation Clerk film shows a nonspecific bowel gas pattern. No obstruction or free air. No suspiciou s calcifications. Gastric size and mucosal fold pattern are normal. No delay in transit of contrast into the small piter l. Small bowel is normal in diameter with no mucosal fold thickening. No intrinsic or extrinsic mass identifiable. Terminal ileum has normal appearance. Transit time to the colon is normal. No fluoroscopy was performed. Total images acquired: 8 IMPRESSION: Normal small bowel series.
--- NOTE | 2022-07-29 20:29 | CON ---
Date of Consultation: 07/29/2022 Reason For Consultation: Elevated troponin. History Of Present Illness: This is a 77-year-old male with past medical history of [id number] coronary artery disease by cath done on , has end-stage renal disease, on dialysis [place] , Wednesday, Wednesday, COPD, diastolic heart failure, chronic anemia, hypertension, dyslipidemia, a trial fibrillation, and diabetes, now sent to emergency room after doing blood work as an outpatient. Hemoglobin being 4.5. In the hospital, had troponin elevation, and as such, I was consulted. Nicolle ent denies having any active chest pain. Past Medical History: As outlined above in the HPI. Medications: Refer to reconciliation sheet for detailed list. Allergies: CODEINE, GABAPENTIN. Family History: No premature coronary artery disease or cancer. Social History: Does not smoke or drink. Does not use any drugs. Review of Systems: All systems reviewed. They were negative except as mentioned in the HPI. Physical Examination: Vital signs: Showed temperature is 97.8, pulse 57, breathing at 16, blood pressure 165/74, saturatin g 98% on room air. General: Pleasant elderly male, in no apparent distress. Head and Neck: Pupils are equal, reactive to light. Intact eye movements. No JVD. No cervical lym phadenopathy. Neck is supple. Thyroid is not enlarged. Lungs: Clear to auscultation with decreased breathing sounds. No accessory muscle use or muscle ret raction. Heart: Regular. No extra sounds. Abdomen: Soft, nontender. Bowel sounds positive. No organomegaly. No masses or hernia. No rigidi ty or rebound. Extremities: No clubbing or cyanosis. Intact pulses. Skin: No rash. Neurologic: Alert, awake. No acute focal deficits appreciated. Investigations: Troponin was 110, then 107, then 112. BUN 25, creatinine is 2.85. Assessment And Plan: 1.Elevated troponin. No active chest pain. Patient had a heart catheterization on June 22 and showed [id number] coronary artery disease. This is likely demand due to severe anemia. On pr esentation, patient's hemoglobin was 3.8, definitely this is demand. No further cardiac workup is ne eded. 2.Severe anemia. Hemoglobin is 3.8 on presentation, status post transfusion and workup. GI workup is indicated to further evaluate the source of bleeding. 3.End-stage renal disease, on hemodialysis. /BILLY Voice ID: [id number] Report ID: [id number]
[2022-07-29] MEDS: DOCUSATE NA 100 MG CAP PO SCH (21:04)
[2022-07-30 03:30] LABS: Absolute Lymphocytes (CBC) 1.5 K/uL (0.7-4.9); Hematocrit 23.8 % (39.6-49.0); Lymphocytes % 32.2 % (15.3-44.8); MCV 94.3 fL (80-100); MPV 7.3 fL (7.6-11.3); RBC Red Blood Cell Count 2.53 M/uL (4.33-5.43)
[2022-07-30] MEDS: INSULIN -REGULAR HUMAN 50 UNIT/0.5 ML ML SQ SCH (07:30)
[2022-07-30 08:15] VITALS: BP 146/60; TEMP 97.6
[2022-07-30] MEDS: PANTOPRAZOLE 40 MG INJ IVP SCH (08:18)
[2022-07-30] MEDS: DOCUSATE NA 100 MG CAP PO SCH (08:18)
--- NOTE | 2022-07-30 08:26 | P.DS ---
Admission Date: 07/27/22 Discharge Date: 07/30/22 Disposition: ROUTINE DISCHARGE Discharge Condition: GOOD Reason for Admission: Severe anemia, ESRD Consultations: 1. Nephrology 2. Gastroenterology 3. Cardiology Procedures: - 07/28/2022 - Esophagogastroduodenoscopy Hospital Course: DIAGNOSES: # Severe Acute on Chronic Anemia of Chronic Kidney Disease s/p 5 units pRBCs # Suspected Type II Non-ST Segment Elevation Myocardial Infarction (Demand Ischemia) secondary to above # End-Stage Renal Disease on MWF iHD # Chronic Atrial Fibrillation/Flutter # Chronic Respiratory Failure secondary to Chronic Obstructive Pulmonary Disease on Home Oxygen (2.5 L) # Type II Diabetes Mellitus # Hypertension # Dyslipidemia # Large Left and Moderate Right Inguinal Hernia # Left Adrenal Nodule (stable) # Moderate Hiatal Hernia # Renal Cysts # Calcified Lung Granuloma HOSPITAL COURSE: Mr. Guzman Mayers is a pleasant 77 year old male with a past medical history significant for chronic respiratory failure secondary to chronic obstructive pulmonary disease on 2.5 L home oxygen, end-stage renal disease on MWF iHD, chronic diastolic heart failure, type 2 diabetes mellitus, chronic atrial fibrillation/flutter, and peripheral arterial disease who was admitted to the [facility] on 07/27/2022 for severe anemia. He was admitted to the Medicine service. Upon further evaluation, he was found to have a hemoglobin of 3.8. Gastroenterology was consulted and he was evaluated by Dr. Garibay. He underwent an esophagogastroduodenoscopy, which revealed a hiatal hernia with gastritis/duodenitis, diverticulosis, and duodenal angioectasias. He was given 5 units of pRBCs over his hospitalization, with stabilization of his hemoglobin counts. Dr. Garibay has cleared him for discharge. Nephrology was consulted and he was evaluated by Dr. Sanchez, who has also cleared him for discharge. In addition to his severe anemia, he was found to have mildly elevated troponin levels. Cardiology was consulted and he was evaluated by Dr. Henriquez. He felt that his troponin elevation was secondary to demand ischemia from the severe anemia. Dr. Henriquez has cleared him for discharge from a cardiac standpoint. Like his last admission, he was reminded of the several incidental findings on his CT scan including a left adrenal nodule, moderate hiatal hernia, bilateral inguinal hernias, renal cyst, and a calcified lung granuloma. I counseled him on these findings and advised that he follow-up with Dr. Fortune regarding further evaluation. He verbalized understanding and agreed to make this appointment. Additionally, we again had an extensive discussion regarding his stroke risk with atrial fibrillation and the general recommendation of anticoagulation. However, given that he required 5 units of pRBCs this hospitalization and the fact that he had required 8 blood transfusions in the last year, it was elected to hold off on anticoagulation at this time. He was advised to discuss anticoagulation with Dr. Fortune and Dr. Henriquez after his gastroenterologic evaluation is completed. On 07/30/2022, he was seen on morning rounds and deemed medically stable for discharge. He was discharged with instructions to schedule follow-up appointments with his PCP (Dr. Fortune), with Nephrology (Dr. Sanchez), with Gastroenterology (Dr. Garibay), and with Cardiology (Dr. Henriquez). He was provided a prescription for pantoprazole. He was given the opportunity to ask questions and reported no further questions. Furthermore, all questions were answered to the best of my ability. A copy of this discharge summary will be sent to the above providers to facilitate continuity of care. Today, I personally spent 25 minutes on his case, of which greater than 50% of the time was spent in patient education, counseling, and coordination of care as described above. - Physical Exam General: Alert, In no apparent distress, Oriented x3 HEENT: Atraumatic, Sclerae nonicteric Neck: JVD not distended Respiratory: Clear to auscultation bilaterally, Normal air movement Cardiovascular: Normal pulses, Regular rate/rhythm, No murmurs, Edema (trace BLE) Gastrointestinal: Normal bowel sounds, Soft, Non-distended, No tenderness Musculoskeletal: No clubbing Integumentary: No rashes Neurological: Normal speech, Normal affect Vital Signs/Physical Exam: Temp Pulse Resp BP Pulse Ox 97.6 F 57 18 146/60 H 100 07/30/22 08:00 07/30/22 08:00 07/30/22 08:00 07/30/22 08:00 07/30/22 08:00 Laboratory Data at Discharge: WBC 4.60 K/uL (4.3-10.9) 07/30/22 02:46 Hgb 8.3 g/dL (13.6-17.9) L 07/30/22 02:46 Hct 23.8 % (39.6-49.0) L 07/30/22 02:46 Plt Count 156 K/uL (152-406) 07/30/22 02:46 PT 14.4 SECONDS (9.5-12.5) H 07/27/22 19:58 INR 1.31 07/27/22 19:58 Sodium 133 mmol/L (136-145) L 07/30/22 02:46 Potassium 4.0 mmol/L (3.5-5.1) 07/30/22 02:46 BUN 45 mg/dL (7-18) H 07/30/22 02:46 Creatinine 4.58 mg/dL (0.70-1.30) H 07/30/22 02:46 Glucose 111 mg/dL (74-106) H 07/30/22 02:46 Home Medications: Atorvastatin Calcium 1 tab PO BEDTIME 10/16/21 Insulin Glargine,Hum.rec.anlog [Basaglar Kwikpen U-100] 50 unit SQ DAILY 10/16/21 Sertraline HCl 50 mg PO DAILY 05/26/22 Nepro Shake [Nepro*] 237 ml PO BID #60 can 05/28/22 Metoprolol Tartrate [Lopressor*] 12.5 mg PO BID 6AM 6PM #30 tab 06/20/22 Epoetin [Retacrit] 10,000 unit IV EVERY HD vial 07/30/22 Pantoprazole [Protonix Tab*] 40 mg PO BID #60 tab 07/30/22 New Medications: Pantoprazole [Protonix Tab*] 40 mg PO BID #60 tab Physician Discharge Instructions: 1. Please call and schedule a follow-up appointment with your PCP (Dr. Fortune) in 3-5 days 2. Please call and schedule a follow-up appointment with Nephrology (Dr. Sanchez) in 5-7 days 3. Please call and schedule a follow-up appointment with Gastroenterology (Dr. Garibay) in 5-7 days 3. Please call and schedule a follow-up appointment with Cardiology (Dr. Henriquez) in 1-2 weeks 4. Please call the 2nd floor nurse's station at [phone] for any questions regarding your hospital stay. 5. Please return to the nearest emergency department if your symptoms worsen. Followup: Anita Sanchez MD [ACTIVE - CAN ADMIT] - 1 Week Naveed Fortune DO [Primary Care Provider] - 2-3 Days Ramiro Garibay MD [OUTSIDE PHYSICIAN] - 1 Week Chico Henriquez MD [ACTIVE - CAN ADMIT] - Time spent managing pt's care (in minutes): 25
[2022-07-30 09:16] VITALS: O2SAT 100
== END 2022-07-30 10:04 | disposition home health service (06) | DRG 377 ==
LOC: ER 19:29 → 2ND 21:34
PROVIDERS: ADMIT Internal Medicine; ATTEND Internal Medicine
PROC: 0DB78ZX Excision of Stomach, Pylorus, Via Natural or Artificial Opening Endoscopic, Diagnostic (ICD-10-PCS; 2022-07-28)
PROC: 0DB68ZX Excision of Stomach, Via Natural or Artificial Opening Endoscopic, Diagnostic (ICD-10-PCS; 2022-07-28)
PROC: 0DB88ZX Excision of Small Intestine, Via Natural or Artificial Opening Endoscopic, Diagnostic (ICD-10-PCS; 2022-07-28)
PROC: 5A1D70Z Performance of Urinary Filtration, Intermittent, Less than 6 Hours Per Day (ICD-10-PCS; 2022-07-28)
PROC: 30233N1 Transfusion of Nonautologous Red Blood Cells into Peripheral Vein, Percutaneous Approach (ICD-10-PCS; 2022-07-28)
PROC: 0DB98ZX Excision of Duodenum, Via Natural or Artificial Opening Endoscopic, Diagnostic (ICD-10-PCS; principal; 2022-07-28 14:15)
DX: K29.71 Gastritis, unspecified, with bleeding (principal); I21.A1 Myocardial infarction type 2; N18.6 End stage renal disease; I50.32 Chronic diastolic (congestive) heart failure; J96.10 Chronic respiratory failure, unspecified whether with hypoxia or hypercapnia; I13.2 Hypertensive heart and chronic kidney disease with heart failure and with stage 5 chronic kidney disease, or end stage renal disease; I48.20 Chronic atrial fibrillation, unspecified; N25.81 Secondary hyperparathyroidism of renal origin; I48.92 Unspecified atrial flutter; K29.81 Duodenitis with bleeding; K57.91 Diverticulosis of intestine, part unspecified, without perforation or abscess with bleeding; K31.811 Angiodysplasia of stomach and duodenum with bleeding; E11.22 Type 2 diabetes mellitus with diabetic chronic kidney disease; E11.65 Type 2 diabetes mellitus with hyperglycemia; E11.40 Type 2 diabetes mellitus with diabetic neuropathy, unspecified; D63.1 Anemia in chronic kidney disease; K44.9 Diaphragmatic hernia without obstruction or gangrene; N28.1 Cyst of kidney, acquired; J84.10 Pulmonary fibrosis, unspecified; E78.5 Hyperlipidemia, unspecified; J44.9 Chronic obstructive pulmonary disease, unspecified; I25.10 Atherosclerotic heart disease of native coronary artery without angina pectoris; Z99.2 Dependence on renal dialysis; Z88.5 Allergy status to narcotic agent; Z79.4 Long term (current) use of insulin; Z88.8 Allergy status to other drugs, medicaments and biological substances; Z99.81 Dependence on supplemental oxygen; Z79.82 Long term (current) use of aspirin; Z79.899 Other long term (current) drug therapy; Z89.422 Acquired absence of other left toe(s); Z20.822 Contact with and (suspected) exposure to COVID-19
CPT/HCPCS: 36415; 36430; 74250; 80048; 82607; 82728; 82947; 83010; 83036; 83540; 83615; 84132; 84466; 84484; 85014; 85018; 85025; 85610; 86850; 86900; 86901; 87811; 88305; 88312; 90935; 93005; 99285; C9113; J1815; J2001; J2704; J7040; J7050; P9016; P9040

== ENCOUNTER 2022-08-20 15:44 | Inpatient (IN) | payer OTHER, BC ==
--- OUTSIDE RECORDS SUMMARY | 2022-08-20 15:53 | XMS REPORT | Continuity of Care Document ---
:1945 Author Organization [facility] t Address [address] [facility] [address] [place] [address] Care Team Providers Name Role Phone Naveed Fortune Attending Clinician Unavailable [id number] Attending Clinician Unavailable CAREY LONG Attending Clinician Unavailable CAMELIA MANCILLA Attending Clinician Unavailable RONNIE WHITNEY Attending Clinician Unavailable MONSE VELAZQUEZ Attending Clinician Unavailable CHILANGO ARMSTRONG NATASHA Attending Clinician Unavailable [id number] Admitting Clinician Unavailable CAMELIA MANCILLA Admitting Clinician Unavailable MONSE VELAZQUEZ Admitting Clinician Unavailable CHILANGO ARMSTRONG NATASHA Admitting Clinician Unavailable Payers Payer Name Policy Type Policy Number Effective Date Expiration Date S kristin MEDICARE PART A [id number] 2011 AND B 00:00:00 [employer] Blue 6 [id number] 2014 [facility] Shield of [place] 00:00:00 - [facility] [id number] BCTX BCTI [id number] MEDICARE MB [id number] 2011 [facility] NOVITAS 00:00:00 - [facility] MEDICARE MB [id number] 2011 [facility] NOVITAS 00:00:00 - [facility] MEDICARE MB [id number] 2011 [facility] NOVITAS 00:00:00 - [facility] Problems Condition Condition Condition Status Onset Resolution Last Treating Co mments Source Name Details Category Date Date Treatment Clinician Date [id number] Other Problem Common obesity Spirit due to - [facility]I excess calories [facility] [id number] Metabolic Problem Com mon syndrome Spirit - CHI [facility] [id number] Body mass Problem Com mon index Spirit [BMI] - CHI 30.0-30.9, [facility] [id number] Frailty Problem Commo n syndrome Spirit in - [facility] geriatric [facility] 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 - CHI , single major St episode depressive [facility] prior episode 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 - [facility] Chronic Chronic Problem Common systolic systolic Spirit heart congestive - [facility]I failure heart [facility] [id number] 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 - [facility] [id number] GERD Problem Common without Spirit esophagiti - CHI s [facility] [id number] Type 2 Problem Common diabetes Spirit mellitus - CHI with [facility] [id number] Mixed Problem Common hyperlipid Spirit emia - [facility] [id number] Noncomplia Problem Co mmon nce of Spirit patient - CHI with [facility] Chronic +5th digit Problem Comm on atrial eff Spirit fibrillati 02/28/19*Ch - CHI on ronic St (disorder) atrial kes fibrillati [facility] [place] [id number] 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 type [id number] Heart Problem Common failure, Spirit congestive - CHI , etiology unknown [facility] [id number] Constipati Problem Com mon on, Spirit unspecifie - CHI d constipati [facility] Medical [place] [id number] Memory Problem Common impairment Spirit of gradual - CHI onset [facility] [id number] HTN, goal Problem Comm on below Spirit 130/80 - [facility] [id number] Anemia of Problem Com mon chronic Spirit disease - [facility] [id number] manager 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 Problem Com mon (current) [facility] use of - CHI insulin [facility] [id number] Benign Problem Common prostatic [facility] hyperplasi - [facility] a without [facility] urinary Medical tract Center symptoms Hypertroph Obstructiv Problem C ommon ic e Spirit 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 [facility] Hypertensi Hypertensi Problem C ommon ve heart [...] gabapent Active Unknown Commo n in in [facility] codeine codeine Active Unknown Common [facility] Social History Social Habit Start Date Stop Date Quantity Comments Source History of Tobacco Use Co mmon [facility] Sex Assigned At Com mon [facility] Smoking Status Start Date Stop Date Source Former Smoker 2022-05-12 00:00:00 2022-05-12 00:00:00 Common S pirit [facility] Medications Ordered Filled Start Stop Current [...] 1-15 [facility] 00:00: - [facility]I 00 [facility] BD BD 2018-05 Yes Naveed 1 needle Common Ultra-Fine Ultra-Fine 0-09 [facility] with Sp jerome Christina Pen Christina Pen 00:00: Basaglar - CHI [place] 00 [facility] BD BD 2018-05 No QD BD Ultra-Fine Ultra-Fine 0-09 Ultra-Fine Christina Pen Christina Pen 00:00: Christina Pen Putney 4mm Putney 4mm 00 Putney x 32Gm x 32Gm 4mm x 32Gm BD BD 2018-05 No QD BD Ultra-Fine Ultra-Fine 0-09 Ultra-Fine Christina Pen Christina Pen 00:00: Christina Pen Putney 4mm Putney 4mm 00 Putney x 32Gm x 32Gm 4mm x 32Gm BD BD 2018-05 No QD BD Ultra-Fine Ultra-Fine 0-09 Ultra-Fine Christina Pen Christina Pen 00:00: Christina Pen Putney 4mm Putney 4mm 00 Putney x 32Gm x 32Gm 4mm x 32Gm BD BD 2018-05 No QD BD Ultra-Fine Ultra-Fine 0-09 Ultra-Fine Christina Pen Christina Pen 00:00: Christina Pen Putney 4mm Putney 4mm 00 Putney x 32Gm x 32Gm 4mm x 32Gm [facility] 2018- No QD BD Ultra-Fine Ultra-Fine 0-09 Ultra-Fine Christina Pen Christina Pen 00:00: Christina Pen Putney 4mm Putney 4mm 00 Putney x 32Gm x 32Gm 4mm x 32Gm [facility] 2018-05 No QD BD Ultra-Fine Ultra-Fine 0-09 Ultra-Fine Christina Pen Christina Pen 00:00: Christina Pen Putney 4mm Putney 4mm 00 Putney x 32Gm x 32Gm 4mm x 32Gm [facility] 2018- No QD BD Ultra-Fine Ultra-Fine 0-09 Ultra-Fine Christina Pen Christina Pen 00:00: Christina Pen [place] 4mm Putney 4mm 00 Putney x 32Gm x 32Gm 4mm x 32Gm [facility] 2018- No QD BD Ultra-Fine Ultra-Fine 0-09 Ultra-Fine Christina Pen Christina Pen 00:00: Christina Pen Putney 4mm Putney 4mm 00 Putney x 32Gm x 32Gm 4mm x 32Gm [facility] 2018-05 No QD BD Ultra-Fine Ultra-Fine 0-09 Ultra-Fine Christina Pen Christina Pen 00:00: Christina Pen [place] 4mm Putney 4mm 00 Putney x 32Gm x 32Gm 4mm x 32Gm [facility] 2018-05 No QD BD Ultra-Fine Ultra-Fine 0-09 Ultra-Fine Christina Pen Christina Pen 00:00: Christina Pen [place] 4mm Putney 4mm 00 Putney x 32Gm x 32Gm 4mm x 32Gm [facility] 2018- No QD BD Ultra-Fine Ultra-Fine 0-09 Ultra-Fine Christina Pen Christina Pen 00:00: Christina Pen [place] 4mm Putney 4mm 00 Putney x 32Gm x 32Gm 4mm x 32Gm [facility] 2018-05 No QD BD Ultra-Fine Ultra-Fine 0-09 Ultra-Fine Christina Pen Christina Pen 00:00: Christina Pen Putney 4mm Putney 4mm 00 Putney x 32Gm x 32Gm 4mm x 32Gm [facility] 2018- No QD BD Ultra-Fine Ultra-Fine 0-09 Ultra-Fine Christina Pen Christina Pen 00:00: Christina Pen Putney 4mm Putney 4mm 00 Putney x 32Gm x 32Gm 4mm x 32Gm [facility] 2018-05 No QD BD Ultra-Fine Ultra-Fine 0-09 Ultra-Fine Christina Pen Christina Pen 00:00: Christina Pen [place]ney 4mm Putney 4mm 00 Putney x 32Gm x 32Gm 4mm x 32Gm [facility] 2018-05 No QD BD Ultra-Fine Ultra-Fine 0-09 Ultra-Fine Christina Pen Christina Pen 00:00: Christina Pen [place]ney 4mm Putney 4mm 00 Putney x 32Gm x 32Gm 4mm x 32Gm [facility] 2018-05 No QD BD Ultra-Fine Ultra-Fine 0-09 Ultra-Fine Christina Pen Christina Pen 00:00: Christina Pen Putney 4mm Putney 4mm 00 Putney x 32Gm x 32Gm 4mm x 32Gm [facility] 2018-05 No QD BD Ultra-Fine Ultra-Fine 0-09 Ultra-Fine Christina Pen Christina Pen 00:00: Christina Pen Putney 4mm Putney 4mm 00 Putney x 32Gm x 32Gm 4mm x 32Gm [facility] 2018-05 No QD BD Ultra-Fine Ultra-Fine 0-09 Ultra-Fine Christina Pen Christina Pen 00:00: Christina Pen [place] 4mm Putney 4mm 00 Putney x 32Gm x 32Gm 4mm x 32Gm [facility] 2018-05 No QD BD Ultra-Fine Ultra-Fine 0-09 Ultra-Fine Christina Pen Christina Pen 00:00: Christina Pen [place] 4mm Putney 4mm 00 Putney x 32Gm x 32Gm 4mm x 32Gm [facility] 2018-05 No QD BD Ultra-Fine Ultra-Fine 0-09 Ultra-Fine Christina Pen Christina Pen 00:00: Christina Pen [place] 4mm Putney 4mm 00 Putney x 32Gm x 32Gm 4mm x 32Gm [facility] 2018-05 No QD BD Ultra-Fine Ultra-Fine 0-09 Ultra-Fine Christina Pen Christina Pen 00:00: Christina Pen [place]ney 4mm Putney 4mm 00 Putney x 32Gm x 32Gm 4mm x 32Gm [facility] 2018-05 No QD BD Ultra-Fine Ultra-Fine 0-09 Ultra-Fine Christina Pen Christina Pen 00:00: Christina Pen [place]ney 4mm Putney 4mm 00 Putney x 32Gm x 32Gm 4mm x 32Gm Tums E-X Tums E-X Yes Naveed 1 tablet C ommon 750 750 [facility] Basaglar Basaglar Yes Naveed 52 Units C ommon KwikPen KwikPen [facility] PreserVisio PreserVisio Yes Naveed as Common n AREDS n AREDS [facility] directed [facility] Citalopram Citalopram Yes Naveed 1 tablet Common Hydrobromid Hydrobromid Fortune [facility] e e [facility] Stool Stool Yes Naveed not Common Softener Softener Fortune defined Spi rit [facility] Gentle Gentle Yes Naveed 1 tablet Commo n Laxative Laxative Fortune as needed S pirit [facility] Atorvastati Atorvastati Yes Naveed 1 tablet Common n Calcium n Calcium Fortune [facility] Contour Contour Yes Naveed USE 3 Common Test Test Fortune TIMES A [facility] Eliquis 2.5 Eliquis 2.5 Yes Naveed 1 tablet Common mg mg Fortune [facility] Multivitami Multivitami Yes Naveed as Common n Adult n Adult [facility] directed [facility] Carvedilol Carvedilol Yes Naveed TAKE 1 Common [facility] TABLET BY Spirit MOUTH - CHI TWICE A St DAY ON [facility] DIALYSIS Medical DAYS [place] Atorvastati Atorvastati Yes Naveed TAKE 1 Common n Calcium n Calcium Fortune TABLET BY Spirit MOUTH - CHI EVERY DAY [facility] GlipiZIDE GlipiZIDE Yes Naveed 1 tablet Common Fortune [facility] Basaglar Basaglar Yes Naveed 50 Units C ommon KwikPen KwikPen Fortune [facility] Advair HFA Advair HFA No 2{puffs [...] Dexcom G6 Dexcom G6 No Dexcom G6 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 - Carvedilol Carvedilol No Carvedilol 12.5 [...] Dexcom G6 Dexcom G6 No Dexcom G6 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 - glipiZIDE 5 glipiZIDE 5 No [...] Dexcom G6 Dexcom G6 No Dexcom G6 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 - Ipratropium Ipratropium No Ipratropiu -Albuterol [...] Dexcom G6 Dexcom G6 No Dexcom G6 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 - Gentle Gentle No 1{table QD [...] Dexcom G6 Dexcom G6 No Dexcom G6 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 - PreserVisio PreserVisio No PreserVisi n [...] Dexcom G6 Dexcom G6 No Dexcom G6 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 - Advair HFA Advair HFA No [...] Dexcom G6 Dexcom G6 No Dexcom G6 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 - Advair HFA Advair HFA No [...] Dexcom G6 Dexcom G6 No Dexcom G6 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 - Advair HFA Advair HFA No [...] Dexcom G6 Dexcom G6 No Dexcom G6 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 - Atorvastati Atorvastati No 1{table QD [...] Dexcom G6 Dexcom G6 No Dexcom G6 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 - Atorvastati Atorvastati No Atorvastat n [...] Dexcom G6 Dexcom G6 No Dexcom G6 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 - Atorvastati Atorvastati No Atorvastat n [...] 230 230- } 230-21 MCG/ACT MCG/ACT MCG/ACT Citalopram [...] FluAD 2021-03-30 Completed [facility] 13:13:00 - [facility] FluAD FluAD 2021-03-30 Completed [facility] 13:13:00 - [facility] FluAD FluAD 2021-03-30 Completed [facility] 13:13:00 - [facility] FluAD FluAD 2021-03-30 Completed [facility] 13:13:00 - [facility] FluAD FluAD 2021-03-30 Completed [facility] 13:13:00 - [facility] FluAD FluAD 2021-03-30 Completed [facility] 13:13:00 - [facility] FluAD FluAD 2021-03-30 Completed [facility] 13:13:00 - [facility] FluAD FluAD 2021-03-30 Completed [facility] 13:13:00 - [facility] FluAD FluAD 2021-03-30 Completed [facility] 13:13:00 - [facility] FluAD FluAD 2021-03-30 Completed [facility] 13:13:00 - [facility] FluAD FluAD 2021-03-30 Completed [facility] 13:13:00 - [facility] FluAD FluAD 2021-03-30 Completed [facility] 13:13:00 - [facility] FluAD FluAD 2021-03-30 Completed [facility] 13:13:00 - [facility] FluAD FluAD 2021-03-30 Completed [facility] 13:13:00 - [facility] FluAD FluAD 2021-03-30 Completed [facility] 13:13:00 - [facility] FluAD FluAD 2021-03-30 Completed [facility] 13:13:00 - [facility] FluAD FluAD 2021-03-30 Completed [facility] 13:13:00 [facility] FluAD FluAD 2021-03-30 Completed [facility] 13:13:00 - [facility] FluAD FluAD 2021-03-30 Completed [facility] 13:13:00 - [facility] FluAD FluAD 2021-03-30 Completed [facility] 13:13:00 [facility] COVID-19 Vaccine COVID-19 Vaccine 2020-08-19 Completed Co mmon [facility] (Andrea) (Andrea) 09:17:00 [facility] COVID-19 Vaccine COVID-19 Vaccine 2020-08-19 Completed Co mmon [facility] (Andrea) (Andrea) 09:17: [facility] COVID-19 Vaccine COVID-19 Vaccine 2020-08-19 Completed Co mmon [facility] (Andrea) (Andrea) 09:17: [facility] COVID-19 Vaccine COVID-19 Vaccine 2020-08-19 Completed Co mmon [facility] (Andrea) (Andrea) 09:17:00 - [facility] COVID-19 Vaccine COVID-19 Vaccine 2020-08-19 Completed Co mmon [facility] (Andrea) (Andrea) 09:17:00 - [facility] COVID-19 Vaccine COVID-19 Vaccine 2020-08-19 Completed Co mmon [facility] (Andrea) (Andrea) 09:17:00 - [facility] COVID-19 Vaccine COVID-19 Vaccine 2020-08-19 Completed Co mmon [facility] (Andrea) (Andrea) 09:17:00 [facility] COVID-19 Vaccine COVID-19 Vaccine 2020-08-19 Completed Co mmon [facility] (Andrea) (Andrea) 09:17:00 [facility] COVID-19 Vaccine COVID-19 Vaccine 2020-08-19 Completed Co mmon [facility] (Andrea) (Andrea) 09:17:00 [facility] COVID-19 Vaccine COVID-19 Vaccine 2020-08-19 Completed Co mmon [facility] (Andrea) (Andrea) 09:17:00 [facility] COVID-19 Vaccine COVID-19 Vaccine 2020-08-19 Completed Co mmon [facility] (Andrea) (Andrea) 09:17:00 [facility] COVID-19 Vaccine COVID-19 Vaccine 2020-08-19 Completed Co mmon [facility] (Andrea) (Andrea) 09:17:00 [facility] COVID-19 Vaccine COVID-19 Vaccine 2020-08-19 Completed Co mmon [facility] (Andrea) (Andrea) 09:17:00 [facility] COVID-19 Vaccine COVID-19 Vaccine 2020-08-19 Completed Co mmon [facility] (Andrea) (Andrea) 09:17:00 [facility] COVID-19 Vaccine COVID-19 Vaccine 2020-08-19 Completed Co mmon [facility] (Andrea) (Andrea) 09:17:00 [facility] COVID-19 Vaccine COVID-19 Vaccine 2020-08-19 Completed Co mmon [facility] (Andrea) (Andrea) 09:17:00 [facility] COVID-19 Vaccine COVID-19 Vaccine 2020-08-19 Completed Co mmon [facility] (Andrea) (Andera) 09:17:00 [facility] COVID-19 Vaccine COVID-19 Vaccine 2020-08-19 Completed Co mmon [facility] (Andrea) (Andrea) 09:17:00 [facility] COVID-19 Vaccine COVID-19 Vaccine 2020-08-19 Completed Co mmon [facility] (Andrea) (Andrea) 09:17:00 [facility] COVID-19 Vaccine COVID-19 Vaccine 2020-08-19 Completed Co mmon [facility] (Andrea) (Andrea) 09:17:00 [facility] COVID-19 Vaccine COVID-19 Vaccine 2020-08-19 Completed Co mmon [facility] (Andrea) (Andrea) 09:17:00 [facility] COVID-19 Vaccine COVID-19 Vaccine 2020-08-19 Completed Co mmon [facility] (Andrea) (Andrea) 09:17:00 [facility] Vital Signs Vital Name Observation Time Observation Value Comments Source height 2022-02-17 15:00:00 70 [in_i] [facility] weight 2022-02-17 15:00:00 208 [lb_av] [facility] temperature 2022-02-17 15:00:00 98.1 [degF] [facility] bmi 2022-02-17 15:00:00 29.84 kg/m2 [facility] blood pressure 2022-02-17 15:00:00 121 mm[Hg] [facility] - systolic [facility] blood pressure 2022-02-17 15:00:00 61 mm[Hg] [facility] - diastolic [facility] height 2022-01-06 14:30:00 70 [in_i] [facility] weight 2022-01-06 14:30:00 208 [lb_av] [facility] bmi 2022-01-06 14:30:00 29.84 kg/m2 [facility] blood pressure 2022-01-06 14:30:00 137 mm[Hg] [facility] - systolic [facility] blood pressure 2022-01-06 14:30:00 79 mm[Hg] [facility] - diastolic [facility] height 2021-11-03 09:45:00 70 [in_i] Common S pirit - [facility] weight 2021-11-03 09:45:00 210 [lb_av] Common S pirit - [facility] bmi 2021-11-03 09:45:00 30.13 kg/m2 Common S pirit - [facility] blood pressure 2021-11-03 09:45:00 144 mm[Hg] [facility] - systolic [facility] blood pressure 2021-11-03 09:45:00 86 mm[Hg] [facility] - diastolic [facility] height 2021-07-28 14:10:00 70 [in_i] Common S pirit - [facility] weight 2021-07-28 14:10:00 211.8 [lb_av] [facility] - [facility] temperature 2021-07-28 14:10:00 97.5 [degF] Common S pirit - [facility] bmi 2021-07-28 14:10:00 30.39 kg/m2 Common S pirit [facility] oximetry 2021-07-28 14:10:00 93 % [facility] S pirit [facility] respiratory rate 2021-07-28 14:10:00 16 /min Comm on Spirit - [facility] blood pressure 2021-07-28 14:10:00 134 mm[Hg] [facility] - systolic [facility] blood pressure 2021-07-28 14:10:00 63 mm[Hg] [facility] - diastolic [facility] height 2021-07-28 13:20:00 70 [in_i] Common S pirit [facility] weight 2021-07-28 13:20:00 211.8 [lb_av] Common [facility] temperature 2021-07-28 13:20:00 97.5 [degF] [facility] bmi 2021-07-28 13:20:00 30.39 kg/m2 [facility] oximetry 2021-07-28 13:20:00 93 % Common [facility] respiratory rate 2021-07-28 13:20:00 16 /min Comm on [facility] blood pressure 2021-07-28 13:20:00 134 mm[Hg] Common [facility] - systolic [facility] blood pressure 2021-07-28 13:20:00 62 mm[Hg] Common [facility] - diastolic [facility] height 2021-04-28 13:10:00 70 [in_i] Common [facility] weight 2021-04-28 13:10:00 215.9 [lb_av] [facility] temperature 2021-04-28 13:10:00 97.3 [degF] [facility] bmi 2021-04-28 13:10:00 30.98 kg/m2 [facility] oximetry 2021-04-28 13:10:00 95 % Common [facility] respiratory rate 2021-04-28 13:10:00 17 /min Comm on [facility] blood pressure 2021-04-28 13:10:00 121 mm[Hg] Common [facility] - systolic [facility] blood pressure 2021-04-28 13:10:00 60 mm[Hg] Common [facility] - diastolic [facility] height 2021-03-12 09:30:00 70 [in_i] Common [facility] weight 2021-03-12 09:30:00 211.4 [lb_av] [facility] temperature 2021-03-12 09:30:00 97.7 [degF] [facility] bmi 2021-03-12 09:30:00 30.33 kg/m2 [facility] oximetry 2021-03-12 09:30:00 95 % Common S pirit - [facility] respiratory rate 2021-03-12 09:30:00 16 /min Comm on [facility] blood pressure 2021-03-12 09:30:00 132 mm[Hg] Common [facility] - systolic [facility] blood pressure 2021-03-12 09:30:00 67 mm[Hg] Common [facility] - diastolic [facility] Procedures Procedure Date / Time Performed Performing Clinician Lupe bowie [id number] 2021-10-18 00:00:00 [facility] Encounters Start End Encounter Admission Attending Care Care Encounter Source Date/Time Date/Time Type Type Clinicians Facility Department ID 2022-05-20 Outpatient [facility], STLMLC STLMLC [id number] Common 08:24:01 Naveed [facility] 2022-05-15 Outpatient [facility], STLMLC STLMLC [id number] Common 08:53:00 Naveed [id number] [facility] 2022-05-11 Outpatient [facility], STLMLC STLMLC [id number] Common 14:49:00 Naveed [facility] 2022-05-08 Outpatient [facility], STLMLC STLMLC [id number] Common 10:15:01 Naveed [id number] [facility] 2022-05-07 Outpatient [facility], STLMLC STLMLC [id number] Common 11:53:00 Naveed [id number] [facility] 2022-02-18 Outpatient [facility], STLMLC STLMLC [id number] Common 12:05:01 Naveed [facility] 2022-01-01 Outpatient [facility], STLMLC STLMLC [id number] Common 10:24:01 Naveed [facility] 2021-12-29 Outpatient [facility], STLMLC STLMLC [id number] Common 08:34:00 Naveed [facility] 2021-12-16 Outpatient [facility] [id number] 14:42:[address] [place] [address] 2021-11-19 Outpatient [facility], STLMLC STLMLC [id number] Common 08:42:01 Naveed [id number] [facility] 2021-11-03 Outpatient [facility], STLMLC STLMLC [id number] Common 10:33:01 Naveed [id number] [facility] 2021-10-15 Outpatient 3 [id number] [facility] 08:19:25 [facility] [place] [facility] 2021-10-14 Outpatient 3 [id number] [facility] RE[facility] 11:59:03 [facility] [place] 2021-06-25 Outpatient [facility], STLMLC STLMLC [id number] Common 14:22:06 Naveed [id number] [facility] 2021-06-25 Outpatient [facility], STLMLC STLMLC [id number] Common 14:13:51 Naveed [id number] [facility] 2021-06-25 Outpatient [facility], STLMLC STLMLC [id number] Common 13:38:12 Naveed [id number] [facility] 2021-06-25 Outpatient [facility], STLMLC STLMLC [id number] Common 12:43:29 Naveed [id number] [facility] 2021-06-25 Outpatient [facility], STLMLC STLMLC [id number] Common 12:42:27 Naveed [id number] [facility] 2021-06-25 Outpatient [facility], STLMLC STLMLC [id number] Common 12:31:12 Naveed [id number] [facility] 2021-06-25 Outpatient [facility], STLMLC STLMLC [id number] Common 12:31:03 Naveed [id number] [facility] 2021-06-25 Outpatient [facility], STLMLC STLMLC [id number] Common 12:30:21 Naveed [id number] [facility] 2021-06-25 Outpatient [facility], STLMLC STLMLC [id number] Common 11:00:43 Naveed [id number] [facility] 2022-07-03 2022-07-03 (TEL) STLMLC STLMLC [id number] Co mmon 00:00:00 00:00:00 [facility] 2022-06-08 2022-06-08 (TEL) STLMLC STLMLC [id number] Co mmon 00:00:00 00:00:00 [facility] 2022-05-06 2022-05-06 (TEL) STLMLC STLMLC [id number] Co mmon 00:00:00 00:00:00 [facility] 2022-04-03 2022-04-03 (TEL) STLMLC STLMLC [id number] Co mmon 00:00:00 00:00:00 [facility] 2022-02-17 2022-02-17 (TEL) STLMLC STLMLC [id number] Co mmon 00:00:00 00:00:00 [facility] 2022-02-17 2022-02-17 OFFICE STLMLC STLMLC [id number] Co mmon 00:00:00 00:00:00 VISIT [facility] PT - CHI LEVEL 4 [facility] 2022-01-06 2022-01-06 OFFICE STLMLC STLMLC [id number] Co mmon 00:00:00 00:00:00 VISIT [facility] PT - CHI LEVEL 4 [facility] 2022-01-02 2022-01-02 Emergency E LONG, STEPHANIE MHBL [id number] MHBL 12:12:00 16:33:00 CAREY 2022-01-01 2022-01-01 (TEL) STLMLC STLMLC [id number] Co mmon 00:00:00 00:00:00 [facility] 2021-12-31 2021-12-31 (TEL) STLMLC STLMLC [id number] Co mmon 00:00:00 00:00:00 [facility] 2021-12-14 2021-12-16 Inpatient E LAURENT, JANE MED [id number] MHBL 18:26:00 22:14:00 CAMELIA 2021-12-03 2021-12-04 Emergency E DEVONTE, BL BL [id number] MHBL 18:19:00 09:53:00 RONNIE 2021-12-01 2021-12-01 Outpatient COH COH PIJFJKR ZIB COH 00:00:00 00:00:00 [id number] 2021-11-26 Outpatient E JANE VELAZQUEZ MED [id number] MHBL 10:37:00 19:12:00 MONSE 2021-11-24 2021-11-24 (TEL) STLMLC STLMLC [id number] Co mmon 00:00:00 00:00:00 [facility] 2021-10-16 2021-11-03 Inpatient 3 NATHANIEL, ENCPL GILDA [id number] [facility] 23:26:00 21:40:00 [facility] [place] [facility] 2021-11-03 2021-11-03 OFFICE STLMLC STLMLC [id number] Co mmon 00:00:00 00:00:00 VISIT [facility] PT LEVEL 4 - CHI [facility] 2021-10-17 2021-10-17 (TEL) STLMLC STLMLC [id number] Co mmon 00:00:00 00:00:00 [facility] 2021-08-12 2021-08-12 (TEL) STLMLC STLMLC [id number] Co mmon 00:00:00 00:00:00 [facility] CHI [facility] 2021-07-28 2021-07-28 OFFICE STLMLC STLMLC [id number] Co mmon 00:00:00 00:00:00 VISIT [facility] PT - CHI LEVEL 4 [facility] 2021-07-28 2021-07-28 SUB ANNUAL STLMLC STLMLC [id number] Common 00:00:00 00:00:00 [facility] WELLNESS - CHI VISIT [facility] 2021-06-12 2021-06-12 (TEL) STLMLC STLMLC [id number] Co mmon 00:00:00 00:00:00 [facility] 2021-05-21 2021-05-21 (TEL) STLMLC STLMLC [id number] Co mmon 00:00:00 00:00:00 [facility] 2021-04-28 2021-04-28 OFFICE STLMLC STLMLC [id number] Co mmon 00:00:00 00:00:00 VISIT [facility] PT - CHI LEVEL 4 [facility] 2021-03-26 2021-03-26 (TEL) STLMLC STLMLC [id number] Co mmon 00:00:00 00:00:00 [facility] 2021-03-12 2021-03-12 OFFICE STLMLC STLMLC [id number] Co mmon 00:00:00 00:00:00 VISIT [facility] PT - CHI LEVEL 4 [facility] 2021-02-10 2021-02-10 Outpatient STLMLC STLMLC [id number] Common 00:00:00 00:00:00 [facility] 2021-01-31 2021-01-31 Outpatient STLMLC STLMLC [id number] Common 00:00:00 00:00:00 [facility] 2021-01-13 2021-01-13 Outpatient STLMLC STLMLC [id number] Common 00:00:00 00:00:00 [facility] 2021-01-08 2021-01-08 Outpatient STLMLC STLMLC [id number] Common 00:00:00 00:00:00 [facility] 2020-12-31 2020-12-31 Outpatient STLMLC STLMLC [id number] Common 00:00:00 00:00:00 [facility] 2020-12-11 2020-12-11 Outpatient STLMLC STLMLC [id number] Common 00:00:00 00:00:00 [facility] 2020-08-19 2020-08-19 Outpatient STLMLC STLMLC [id number] Common 00:00:00 00:00:00 [facility] 2020-07-19 2020-07-19 Outpatient STLMLC STLMLC [id number] Common 00:00:00 00:00:00 [facility] 2020-07-15 2020-07-15 Outpatient STLMLC STLMLC [id number] Common 00:00:00 00:00:00 [facility] 2020-06-14 2020-06-14 Outpatient STLMLC STLMLC [id number] Common 00:00:00 00:00:00 [facility] 2020-06-05 2020-06-05 Outpatient STLMLC STLMLC [id number] Common 00:00:00 00:00:00 [facility] 2020-04-23 2020-04-23 Outpatient STLMLC STLMLC [id number] Common 00:00:00 00:00:00 [facility] 2020-04-22 2020-04-22 Outpatient STLMLC STLMLC [id number] Common 00:00:00 00:00:00 [facility] 2020-04-17 2020-04-17 Outpatient STLMLC STLMLC [id number] Common 00:00:00 00:00:00 [facility] 2020-01-15 2020-01-15 [facility] [id number] Common 10:45:00 10:45:[address] [facility] 2019-10-16 2019-10-16 [facility] [id number] Common 13:00:00 13:00:[address] [facility] 2019-07-17 2019-07-17 [facility] [id number] Common 13:45:00 13:45:[address] [facility] 2019-06-14 2019-06-14 [facility] [id number] Common 11:45:00 11:45:[address] [facility] 2019-06-07 2019-06-07 [facility] [id number] Common 11:57:00 11:57:[address] [facility] 2019-05-17 2019-05-17 [facility] [id number] Common 11:30:00 11:30:[address] [facility] 2019-04-24 2019-04-24 [facility] [id number] Common 14:52:00 14:52:[address] [facility] 2019-04-19 2019-04-19 [facility] [id number] Common 14:45:00 14:45:[address] [facility] 2019-04-06 2019-04-06 [facility] [id number] Common 08:35:00 08:35:[address] [facility] 2019-04-04 2019-04-04 [facility] [id number] Common 08:34:00 08:34:[address] [facility] 2019-03-08 2019-03-08 [facility] [id number] Common 10:57:00 10:57:[address] [facility] 2019-02-20 2019-02-20 [facility] [id number] Common 14:00:00 14:00:[address] [facility] Results Test Description Test Time Test Comments Results Result Comments Source HEMOGLOBIN A1C 2021-07-28 00:00:00 Test Item Value Reference Range Interpretation Comme nts A1C (test code = 4548-4) 8.8 HEMOGLOBIN [id number] 00:00:00 Test Item Value Reference Range Interpretation Comments A1C (test code = 4548-4) 8.3 HEMOGLOBIN [id number] 00:00:00 Test Item Value Reference Range Interpretation Comments A1C (test code = 4548-4) 10.3
[2022-08-20 16:43] LABS: Protime INR 1.41
[2022-08-20 16:50] LABS: Absolute Lymphocytes (CBC) 1.7 K/uL (0.7-4.9); Hematocrit 13.5 % (39.6-49.0); Lymphocytes % 37.7 % (15.3-44.8); MCV 92.8 fL (80-100); RBC Red Blood Cell Count 1.46 M/uL (4.33-5.43)
[2022-08-20 17:17] LABS: Magnesium 1.9 mg/dL (1.6-2.4); Potassium 3.6 mEq/L (3.5-5.1)
--- NOTE | 2022-08-20 17:38 | RAD REPORT ---
EXAM DESCRIPTION: RAD - Chest Single View - 08/20/2022 5:28 pm CLINICAL HISTORY: SOB COMPARISON: Chest Pa And Lat (2 Views) dated 06/16/2022; Chest Single View dated 06/14/2022; Chest Sin gle View dated 05/27/2022; Chest Single View dated 01/28/2022; Chest Abd Pelvis Wo Con dated 06/16/2022 FINDINGS: Lines: None. Lungs: Diffuse prominence of the pulmonary interstitium. Right-sided effusion with likely underlying atelectasis. Pleural: Moderate right pleural effusion is again identified . Cardiac: Cardiomegaly. Mediastinum: Within normal limits. Bones: No acute fractures. Other: None IMPRESSION: Moderate right effusion which is mildly increased. Presumably there is underlying atelec tasis and/or scarring. Background of pulmonary vascular congestion.
[2022-08-20] MEDS ORDERED: FUROSEMIDE 20 MG/ 2ML VIAL ONE (18:11)
--- NOTE | 2022-08-20 18:21 | EDPHYS ---
Physician Documentation [facility] Name: Guzman Mayers Age: 77 yrs Sex: Male : 1945 Arrival Date: 08/20/2022 Time: 15:50 Bed 7 Private MD: ED Physician Kartik Victoria HPI: 08/20 16:15 This 77 yrs old Male presents to ER via Wheelchair with complaints of Abnormal cp Lab Results - low hgb. 16:15 Patient presents to ED for evaluation of low hemoglobin. Son reports patient had blood cp work drawn yesterday that showed low hemoglobin so he brought patient to ED for evaluation. Patient completed dialysis yesterday. Son reports history of chronic anemia. Had recent endoscopy that was negative for upper GI bleed. Denies black stools. Historical: - Allergies: 16:11 Codeine; aa5 16:11 GABAPENTIN; aa5 - PMHx: 16:11 ADD/ADHD; CHF; CKD; COPD; Diabetes - IDDM; Dialysis; dialysis tues, thurs, sat, uses o2 aa5 when sleeping.; High Cholesterol; HTN; Hypertension; - Immunization history:: Adult Immunizations up to date. - Social history:: Smoking status: Patient denies any tobacco usage or history of. ROS: 16:20 Constitutional: Negative for body aches, chills, fever, poor PO intake. cp 16:20 Eyes: Negative for injury, pain, redness, and discharge. cp 16:20 ENT: Positive for hearing loss, Negative for drainage from ear(s), ear pain, sore throat, difficulty swallowing, difficulty handling secretions. 16:20 Cardiovascular: Negative for chest pain, palpitations. 16:20 Respiratory: Negative for cough, shortness of breath, wheezing. 16:20 Abdomen/GI: Negative for abdominal pain, vomiting, diarrhea, constipation. 16:20 Neuro: Positive for weakness, Negative for altered mental status, dizziness, headache, numbness, syncope. 16:20 All other systems are negative. Exam: 16:25 Constitutional: The patient appears in no acute distress, alert, awake, cp non-diaphoretic, non-toxic, well developed, well nourished. 16:25 Head/Face: Normocephalic, atraumatic. cp 16:25 Eyes: Periorbital structures: appear normal, Conjunctiva: normal, no exudate, no injection, Sclera: no appreciated abnormality, Lids and lashes: appear normal, bilaterally. 16:25 ENT: External ear(s): are unremarkable, Ear canal(s): cerumen impaction, that is moderate, bilaterally, TM's: not visable, because of cerumen, Nose: is normal, Mouth: Lips: moist, Oral mucosa: moist, Posterior pharynx: is normal, airway is patent, no erythema, no exudate. 16:25 Chest/axilla: Inspection: normal. 16:25 Cardiovascular: Rate: normal, Rhythm: irregular, Edema: ankle edema, that is mild, JVD: is not appreciated. 16:25 Respiratory: the patient does not display signs of respiratory distress, Respirations: normal, no use of accessory muscles, no retractions, labored breathing, is not present, Breath sounds: are clear throughout, no decreased breath sounds, no stridor, no wheezing. 16:25 Abdomen/GI: Inspection: abdomen appears normal, Palpation: abdomen is soft and non-tender, in all quadrants. 16:25 Back: pain, is absent, ROM is normal. 16:25 Neuro: Orientation: is normal, Mentation: is normal, Motor: moves all fours, general weakness with no focal deficits, Sensation: is normal. 16:32 ECG was reviewed by the Attending Physician. cp Vital Signs: 15:57 BP 117 / 41; Pulse 74; Resp 14 S; Temp 98.2(O); Pulse Ox 92% on R/A; aa5 17:00 BP 130 / 53; Pulse 74; Resp 16; Pulse Ox 100% ; bp 18:00 BP 107 / 53; Pulse 63; Resp 12; Pulse Ox 100% ; bp 21:00 BP 133 / 51; Pulse 68; Resp 16 S; Temp 97.5(O); Pulse Ox 97% on 2 lpm NC; aa9 MDM: 16:01 Patient medically screened. cp 16:35 Differential Diagnosis chronic anemia, GI bleed, acute ND. cp 17:55 Data reviewed: vital signs, nurses notes, lab test result(s), EKG, radiologic studies, cp plain films. 17:55 Historians other than the Patient: Daughter/Son: son provides HPI. Care significantly cp affected by the following chronic conditions: Diabetes, Congestive Heart Failure, Chronic Kidney Disease. 18:30 Consideration of Admission/Observation Patient was admitted/placed on observation. cp 18:30 Management of patient was discussed with the following: Hospitalist: Elma Bello will cp admit after discussion. 19:00 ED course: consult with nephrology, DR Gilbert who wants 2 units to be given tonight and cp patient will dialyzed tomorrow before receiving more blood. 08/20 16:11 Order name: Basic Metabolic Panel; Complete Time: 17:44 cp 08/20 17:44 Interpretation: Normal except: NA 131; CL 95; BUN 41; CRE 4.25; GFR 14; GLUC 205. cp 08/20 16:11 Order name: CBC with Diff; Complete Time: 17:10 cp 08/20 17:11 Interpretation: Normal except: RBC 1.46; HGB 4.8; HCT 13.5; RDW 19.5; MPV 7.0. cp 08/20 16:11 Order name: Magnesium; Complete Time: 17:44 cp 08/20 16:11 Order name: NT PRO-BNP; Complete Time: 17:44 cp 08/20 17:45 Interpretation: NT PRO-BNP 85076. cp 08/20 16:11 Order name: PT-INR; Complete Time: 17:10 cp 08/20 17:45 Interpretation: Reviewed. cp 08/20 16:11 Order name: Troponin HS; Complete Time: 17:44 cp 08/20 17:44 Interpretation: Abnormal: Troponin HS 111.0. cp 08/20 16:11 Order name: Ptt, Activated; Complete Time: 17:10 cp 08/20 16:11 Order name: Type And Screen cp 08/20 17:50 Order name: Bb Add On bd 08/20 18:26 Order name: Packed RBC Leukored EDMS 08/20 16:11 Order name: XRAY Chest (1 view); Complete Time: 17:44 cp 08/20 16:11 Order name: EKG; Complete Time: 16:12 cp 08/20 16:11 Order name: Cardiac monitoring; Complete Time: 16:32 cp 08/20 16:11 Order name: EKG - Nurse/Tech; Complete Time: 16:32 cp 08/20 16:11 Order name: IV Saline Lock; Complete Time: 16:32 cp 08/20 16:11 Order name: Labs collected and sent; Complete Time: 16:32 cp 08/20 16:11 Order name: O2 Per Protocol; Complete Time: 16:32 cp 08/20 16:11 Order name: O2 Sat Monitoring; Complete Time: 16:32 cp EC:32 Rate is 75 beats/min. Rhythm is irregular. QRS interval is prolonged at 204 msec. QT cp interval is prolonged. Interpreted by me. Reviewed by me. Administered Medications: 18:00 Drug: Furosemide IVP 20 mg Route: IVP; Site: right forearm; bp 21:25 Follow up: Response: No adverse reaction aa9 Disposition Summary: 08/20/22 18:20 Hospitalization Ordered Hospitalization Status: Inpatient Admission cp Location: Telemetry/MedSurg (Inpatient) cp Condition: Stable cp Problem: an ongoing problem cp Symptoms: are unchanged cp Bed/Room Type: Standard cp Provider: Wendi Ruiz(08/20/22 19:01) cp Room Assignment: 229(08/20/22 20:55) mw Diagnosis - Anemia in chronic kidney disease cp - Unspecified combined systolic (congestive) and diastolic (congestive) heart failure cp Forms: - Medication Reconciliation Form cp - SBAR form cp Signatures: Dispatcher [employer] EDMS Isidra Combs RN RN Deb Mccall RN RN aa5 Anderson Feldman PA PA cp Nick Rye RN RN bp Chika Farias RN aa9 Corrections: (The following items were deleted from the chart) 18:50 18:20 Elisa Bello cp 19:01 18:50 Cole Fatima cp 20:55 18:20 cp 08/21 11:21 08/20 16:15 Patient presents to ED for evaluation of low hemoglobin. Son reports cp patient had blood work drawn yesterday that showed low hemoglobin so he brought patient to ED for evaluation. Patient completed dialysis yesterday. cp
--- NOTE | 2022-08-20 18:21 | ER ---
Nurse's Notes [facility] Name: Guzman Mayers Age: 77 yrs Sex: Male : 1945 Arrival Date: 08/20/2022 Time: 15:50 Bed 7 Private MD: Diagnosis: Anemia in chronic kidney disease;Unspecified combined systolic (congestive) and diastolic (congestive) heart failure Presentation: 08/20 15:57 Chief complaint: Pt's son reports pt had blood drawn yesterday and reported low aa5 hemoglobin. Pt's skin is pale. 15:57 Coronavirus screen: At this time, the client does not indicate any symptoms associated aa5 with coronavirus-19. Ebola Screen: Patient denies travel to an Ebola-affected area in the 21 days before illness onset. Initial Sepsis Screen: Does the patient meet any 2 criteria? No. Patient's initial sepsis screen is negative. Does the patient have a suspected source of infection? No. Patient's initial sepsis screen is negative. Risk Assessment: Do you want to hurt yourself or someone else? Patient reports no desire to harm self or others. Onset of symptoms was August 20, 2022. 15:57 Acuity: CHICHO 2 aa5 15:57 Method Of Arrival: Wheelchair aa5 Triage Assessment: 16:00 General: Appears in no apparent distress. Behavior is calm, cooperative, appropriate bp for age. Pain: Denies pain. EENT: No deficits noted. Neuro: No deficits noted. Cardiovascular: Rhythm is sinus rhythm. Respiratory: No deficits noted. GI: No signs and/or symptoms were reported involving the gastrointestinal system. : No signs and/or symptoms were reported regarding the genitourinary system. Derm: No deficits noted. Musculoskeletal: No deficits noted. Historical: - Allergies: 16:11 Codeine; aa5 16:11 GABAPENTIN; aa5 - PMHx: 16:11 ADD/ADHD; CHF; CKD; COPD; Diabetes - IDDM; Dialysis; dialysis tues, thurs, sat, uses o2 aa5 when sleeping.; High Cholesterol; HTN; Hypertension; - Immunization history:: Adult Immunizations up to date. - Social history:: Smoking status: Patient denies any tobacco usage or history of. Screenin:00 [facility] ED Fall Risk Assessment (Adult) History of falling in the last 3 months, bp including since admission No falls in past 3 months (0 pts). Abuse screen: Denies threats or abuse. Denies injuries from another. Nutritional screening: No deficits noted. Tuberculosis screening: No symptoms or risk factors identified. Assessment: 16:00 General: SEE TRIAGE NOTE. bp 18:00 Reassessment: No changes from previously documented assessment. Patient and/or family bp updated on plan of care and expected duration. Pain level reassessed. 20:00 Reassessment: Patient appears in no apparent distress at this time. blood products aa9 received, pt signed consent form, understands need for blood transfusion. 20:00 Neuro: Level of Consciousness is awake, alert, obeys commands, Oriented to person, aa9 place, time, situation. Cardiovascular: Dialysis shunt: in the left upper arm, with palpable thrill, with auscultated bruit, no bleeding noted. Respiratory: Reports cough that is productive, Airway is patent Respiratory effort is even, Denies pain with respiration, pain with cough. Derm: Skin is intact, Skin is pale, Skin temperature is cool. 21:08 Reassessment: Patient appears in no apparent distress at this time. Patient and/or aa9 family updated on plan of care and expected duration. Pain level reassessed. Patient denies pain at this time. 21:37 Reassessment: Patient appears in no apparent distress at this time. report called to regina James RN. 22:03 Reassessment: Patient appears in no apparent distress at this time. No changes from aa9 previously documented assessment. Patient and/or family updated on plan of care and expected duration. Pain level reassessed. Patient denies pain at this time. Vital Signs: 15:57 BP 117 / 41; Pulse 74; Resp 14 S; Temp 98.2(O); Pulse Ox 92% on R/A; aa5 17:00 BP 130 / 53; Pulse 74; Resp 16; Pulse Ox 100% ; bp 18:00 BP 107 / 53; Pulse 63; Resp 12; Pulse Ox 100% ; bp 21:00 BP 133 / 51; Pulse 68; Resp 16 S; Temp 97.5(O); Pulse Ox 97% on 2 lpm NC; aa9 ED Course: 15:50 Patient arrived in ED. am2 15:51 Anderson Feldman PA is PHCP. cp 15:51 Kartik Victoria MD is Attending Physician. cp 15:57 Nick Rey, RN is Primary Nurse. bp 15:58 Arm band placed on Patient placed in an exam room, on a stretcher. aa5 16:00 Patient has correct armband on for positive identification. Bed in low position. Call bp light in reach. Side rails up X2. Adult w/ patient. 16:11 Triage completed. aa5 16:32 Initial lab(s) drawn, by ED staff, sent to lab. EKG done, by ED staff, reviewed by dillon CAMPBELL. Inserted saline lock: 20 gauge in left antecubital area, using aseptic technique. Blood collected. 17:30 XRAY Chest (1 view) In Process Unspecified. EDMS 18:19 Elisa Bello PA-C is Hospitalizing Provider. cp 18:49 Cole Fatima is Hospitalizing Provider. cp 19:01 Wendi Ruiz MD is Hospitalizing Provider. cp 21:23 No provider procedures requiring assistance completed. aa9 21:26 Patient admitted, IV remains in place. aa9 Administered Medications: 18:00 Drug: Furosemide IVP 20 mg Route: IVP; Site: right forearm; bp 21:25 Follow up: Response: No adverse reaction aa9 Medication: 16:00 VIS not applicable for this client. bp Outcome: 18:20 Decision to Hospitalize by Provider. cp 21:23 Condition: stable aa9 21:23 Instructed on the need for admit. 22:03 Admitted to Med/surg accompanied by nurse, via stretcher, with chart, Report called to aaArt James 22:04 Patient left the ED. aa9 Signatures: Dispatcher [employer] EDMS Deb Mccall, RN RN aa5 Anderson Feldman PA PA cp Letitia Camacho, RN RN jl7 Juana Keys am2 Nick Rey, RN RN bp Chika Farias RN RN aa9
[2022-08-20] MEDS ORDERED: NA CHLORIDE 0.9% 250 ML ONE ×2 (19:52→23:31)
--- NOTE | 2022-08-20 20:35 | P.HP ---
Certification for Inpatient Patient admitted to: Inpatient With expected LOS: <2 Midnights Patient will require the following post-hospital care: None Practitioner: I am a practitioner with admitting privileges, knowledge of patient current condition, hospital course, and medical plan of care. Services: Services provided to patient in accordance with Admission requirements found in Title 42 Section 412.3 of the Code of Federal Regulations Patient History Date of Service: 08/21/22 Primary Care Provider: Tong Reason for admission: Anemia in ESRD History of Present Illness: Patient is a 77-year-old male with past medical history of ESRD on HD MWF, COPD on home O2, chronic diastolic CHF, anemia of chronic disease, hypertension, hyperlipidemia, A-fib, and insulin-dependent type 2 diabetes who presented to the emergency department after outpatient labs revealed low hemoglobin. His labs in the emergency department today are significant for hemoglobin 4.8, hct 13.5, sodium 131, chloride 95, BUN 41, creatinine 4.25, trop 111, BNP 84450. Patient denies any melena, hematochezia, hematemesis. He had dialysis yesterday, which he did complete. Nephrology was contacted and recommended 2 units PRBC to be transfused now and for patient to receive hemodialysis tomorrow. Vital signs have been stable. Will admit for further evaluation and management of anemia. Allergies codeine Allergy (Verified 10/15/21 23:40) Hallucinations gabapentin Adverse Reaction (Verified 10/15/21 23:40) Hallucinations Home medications list reviewed: Yes Home Medications: Atorvastatin Calcium 1 tab PO BEDTIME 10/16/21 Insulin Glargine,Hum.rec.anlog [Lana Coy U-100] 50 unit SQ DAILY 10/16/21 Sertraline HCl 50 mg PO DAILY 05/26/22 Nepro Shake [Nepro*] 237 ml PO BID #60 can 05/28/22 Metoprolol Tartrate [Lopressor*] 12.5 mg PO BID 6AM 6PM #30 tab 06/20/22 Epoetin [Retacrit] 10,000 unit IV EVERY HD vial 07/30/22 Pantoprazole [Protonix Tab*] 40 mg PO BID #60 tab 07/30/22 - Past Medical/Surgical History Diabetic: Yes -: Hypertension -: Hyperlipidemia -: Diabetes type 2, insulin dependent -: End-stage renal disease, hemodialysis-Wednesday, Wednesday, Wednesday -: Diastolic CHF -: COPDon home O2 -: Anemia of chronic disease -: skin graft for elctrical persaud - BLE 1970s -: Right shoulder surgery -: bilateral leg surgery -: 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 He has 3 children - Family History mother and father History Unknown: Yes Notes: adopted - Social History Smoking Status: Former smoker Alcohol use: No CD- Drugs: No Caffeine use: No Place of Residence: Home Review of Systems Unremarkable Physical Examination - Vital Signs Temperature: 98.2 F Blood Pressure: 117/41 Pulse: 74 Respirations: 14 Pulse Ox (%): 100 (2L NC) - Physical Exam General: Alert, In no apparent distress, Other (pale) HEENT: Atraumatic, PERRLA, EOMI, Sclerae nonicteric Neck: Supple, 2+ carotid pulse no bruit Respiratory: Clear to auscultation bilaterally, Normal air movement Cardiovascular: Regular rate/rhythm, Normal S1 S2 Gastrointestinal: Normal bowel sounds, No tenderness Musculoskeletal: No tenderness Integumentary: No rashes Neurological: Normal speech, Normal affect - Studies Laboratory Data (last 24 hrs) 08/20/22 16:11: PT 15.5 H, INR 1.41, APTT 29.2 08/20/22 16:11: WBC 4.60, Hgb 4.8 L*, Hct 13.5 L, Plt Count 190 08/20/22 16:11: Sodium 131 L, Potassium 3.6, BUN 41 H, Creatinine 4.25 H, Glucose 205 H, Magnesium 1.9 Assessment and Plan - Problems (Diagnosis) (1) Anemia Current Visit: Yes Status: Acute Qualifiers: Anemia type: due to chronic kidney disease Chronic kidney disease stage: on chronic dialysis Qualified Code(s): N18.6 - End stage renal disease; D63.1 - Anemia in chronic kidney disease; Z99.2 - Dependence on renal dialysis (2) ESRD (end stage renal disease) on dialysis Current Visit: Yes Status: Chronic (3) CHF (congestive heart failure) Current Visit: Yes Status: Chronic Qualifiers: Heart failure type: diastolic Heart failure chronicity: acute on chronic Qualified Code(s): I50.33 - Acute on chronic diastolic (congestive) heart failure (4) COPD (chronic obstructive pulmonary disease) Current Visit: Yes Status: Chronic Qualifiers: COPD type: unspecified COPD Qualified Code(s): J44.9 - Chronic obstructive pulmonary disease, unspecified (5) Hypertension Current Visit: Yes Status: Chronic Qualifiers: Hypertension type: primary hypertension Qualified Code(s): I10 - Essential (primary) hypertension (6) Type 2 diabetes mellitus Current Visit: Yes Status: Chronic Qualifiers: Diabetes mellitus mcc insulin use: with terminal supervisor use Diabetes mellitus complication status: with hyperglycemia Qualified Code(s): E11.65 - Type 2 diabetes mellitus with hyperglycemia; Z79.4 - USP (current) use of insulin (7) Atrial fibrillation Current Visit: Yes Status: Chronic Qualifiers: Atrial fibrillation type: unspecified chronic Qualified Code(s): I48.20 - Chronic atrial fibrillation, unspecified; I48.2 - Chronic atrial fibrillation - Plan Severe anemia/acute on chronic anemia of chronic disease Hemoglobin is 4.8 today. 2 units PRBC transfusing. Patient was hospitalized 1 month ago for a similar situation, underwent an EGD in which no source of bleeding was found. He received 5 units of PRBCs over that hospitalization, with stabilization of his hemoglobin counts. Patient denies any melena, hematochezia, hematemesis. Elevated Troponin Chronically elevated per chart review. Will continue trend. Patient denies chest pain. Cardiology has previously stated that troponin elevation is likely secondary to demand ischemia from the severe anemia. ESRD on HD MWF Nephrology consult in place, to have HD tomorrow. Insulin Dependent Type 2 Diabetes ACHS accu checks with mild sliding scale and diabetic diet Continue home dose long acting once verified Chronic respiratory failure with underlying chronic diastolic congestive heart failure/COPD on home O22.5 L Continue home O2, no acute exacerbation noted. Chronic A-fib Noted, patient taking daily aspirin but no chronic anticoagulation given his severe anemia. Hypertension Hold oral antihypertensives given anemia. BP borderline low. Hyperlipidemia Continue home meds DVT PPX: SCD Code status:Full Discharge Plan: Home Plan to discharge in: 48 Hours - Advance Directives Does patient have a Living Will: No Does patient have a Durable POA for Healthcare: No - Code Status/Comfort Care Code Status Assessed: Yes Code Status: Full Code Physician Review: Patient Assessed, Agree with Above Assessment and Plan Critical Care: No Time Spent Managing Pts Care (In Minutes): 50
[2022-08-20] MEDS ORDERED: ONDANSETRON 4 MG/2 ML VIAL IV PRN (21:33)
[2022-08-20] MEDS: INSULIN -REGULAR HUMAN 50 UNIT/0.5 ML ML SQ SCH (21:33)
[2022-08-20] MEDS ORDERED: ALBUTEROL 2.5 MG/3 ML NEB SOL NEB PRN (21:33)
[2022-08-20] MEDS ORDERED: ACETAMINOPHEN 500 MG TAB PO PRN (21:33)
[2022-08-20 23:00] VITALS: BMI 23.1
[2022-08-21 05:58] LABS: Absolute Lymphocytes (CBC) 1.5 K/uL (0.7-4.9); Hematocrit 18.5 % (39.6-49.0); Lymphocytes % 34.7 % (15.3-44.8); MCV 90.8 fL (80-100); RBC Red Blood Cell Count 2.03 M/uL (4.33-5.43)
[2022-08-21 06:16] LABS: Magnesium 2.1 mg/dL (1.6-2.4); Phosphorus 3.8 mg/dL (2.5-4.9); Potassium 3.6 mEq/L (3.5-5.1)
[2022-08-21] MEDS: INSULIN -REGULAR HUMAN 50 UNIT/0.5 ML ML SQ SCH ×4 (07:30→20:41)
[2022-08-21] MEDS ORDERED: INFLUENZA VACCINE (for 6+ mo) 0.5 ML DOSE IMVAC ONE (08:00)
[2022-08-21] MEDS ORDERED: NA CHLORIDE 0.9% 250 ML ONE (12:35)
--- NOTE | 2022-08-21 13:41 | EKG ---
Test Date: 2022-08-20 Test Time: 16:25:40 [employer]ing Center Manager: DEVIN MEASUREMENT RESULTS: Intervals: Rate: 75 MO: QRSD: 204 QT: 510 QTc: 569 [place]: P: MO: QRS: 269 T: 79 INTERPRETIVE STATEMENTS: Atrial fibrillation Right bundle branch block Compared to ECG 07/27/2022 20:04:32 Sinus bradycardia no longer present Atrial premature complex(es) no longer present Aberrant conduction of supraventricular beat(s) no longer present Left-axis deviation no longer present Myocardial infarct finding no longer present Electronically Signed On 08-21-22 13:38:45 CDT by Chico Henriquez
--- NOTE | 2022-08-21 13:58 | P.CNS ---
Date of Consult: 08/21/22 Reason for Consult: ESRD Requesting Physician: Wendi Ruiz Primary Care Provider: Tong Chief Complaint: Anemia in ESRD History of Present Illness: 77M w/ PMHx of ESRD on outpt HD MWF, COPD on home O2, chronic diastolic CHF, anemia of chronic disease, hypertension, hyperlipidemia, A-fib, and DM2, who is admitted for severe anemia. HGb 4.8. He received bld transfusion. He received HD today. Allergies codeine Allergy (Verified 10/15/21 23:40) Hallucinations gabapentin Adverse Reaction (Verified 10/15/21 23:40) Hallucinations Home Medications: Atorvastatin Calcium 1 tab PO BEDTIME 10/16/21 Insulin Glargine,Hum.rec.anlog [Basaglar Kwikpen U-100] 50 unit SQ DAILY 10/16/21 Sertraline HCl 50 mg PO DAILY 05/26/22 Nepro Shake [Nepro*] 237 ml PO BID #60 can 05/28/22 Metoprolol Tartrate [Lopressor*] 12.5 mg PO BID 6AM 6PM #30 tab 06/20/22 Epoetin [Retacrit] 10,000 unit IV EVERY HD vial 07/30/22 Pantoprazole [Protonix Tab*] 40 mg PO BID #60 tab 07/30/22 - Past Medical/Surgical History Diabetic: Yes -: Hypertension -: Hyperlipidemia -: Diabetes type 2, insulin dependent -: End-stage renal disease, hemodialysis-Wednesday, Wednesday, Wednesday -: Diastolic CHF -: COPDon home O2 -: Anemia of chronic disease -: skin graft for elctrical persaud - BLE 1970s -: Right shoulder surgery -: bilateral leg surgery -: 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 He has 3 children - Family History mother and father History Unknown: Yes Notes: adopted - Social History Smoking Status: Unknown if ever smoked Alcohol use: No CD- Drugs: No Caffeine use: No Place of Residence: Home Review of Systems General: Weakness Eyes: Unremarkable ENT: Unremarkable Respiratory: Unremarkable Cardiovascular: Unremarkable Gastrointestinal: Unremarkable Genitourinary: Unremarkable Musculoskeletal: Unremarkable Integumentary: Unremarkable Neurological: Unremarkable Lymphatics: Unremarkable Physical Examination Temp Pulse Resp BP Pulse Ox 97.6 F 55 16 131/56 L 97 08/21/22 12:00 08/21/22 12:00 08/21/22 12:00 08/21/22 12:00 08/21/22 12:00 General: Other (Chronically ill appearing) HEENT: Atraumatic, Normocephalic Neck: Supple Respiratory: Other (symmetric chest expansion) Cardiovascular: No rubs, No murmurs Gastrointestinal: Soft and benign, No guarding Musculoskeletal: No clubbing Integumentary: No warmth Neurological: Normal tone Urinary: Other (No bladder distention) External genitalia: Deferred Rectal: Deferred Laboratory Data (last 24 hrs) 08/20/22 16:11: PT 15.5 H, INR 1.41, APTT 29.2 08/20/22 16:11: WBC 4.60, Hgb 4.8 L*, Hct 13.5 L, Plt Count 190 08/20/22 16:11: Sodium 131 L, Potassium 3.6, BUN 41 H, Creatinine 4.25 H, G lucose 205 H, Magnesium 1.9 Conclusions/Impression: # ESRD on outpt HD MWF HD received today # Severe anemia S/p pRBC transfusion Monitor cbc # Renal osteodystrophy Monitor Ca & Phos # Htn BP at goal, not on BP meds, monitor # Acute on chronic CHF HD as above # COPD, afib, DM2 Per primary team
[2022-08-21] MEDS ORDERED: ALBUTEROL 2.5 MG/3 ML NEB SOL NEB PRN (14:00)
[2022-08-21 16:09] LABS: Hematocrit 29.8 % (39.6-49.0)
[2022-08-22 04:33] LABS: Hematocrit 26.4 % (39.6-49.0); Lymphocytes % 21.2 % (15.3-44.8); MCV 88.4 fL (80-100); RBC Red Blood Cell Count 2.98 M/uL (4.33-5.43)
[2022-08-22 04:49] LABS: Potassium 3.4 mEq/L (3.5-5.1)
[2022-08-22] MEDS: INSULIN -REGULAR HUMAN 50 UNIT/0.5 ML ML SQ SCH (07:30)
[2022-08-22 08:36] VITALS: BP 119/60; TEMP 98.1
[2022-08-22] MEDS ORDERED: POTASSIUM CL SA 10 MEQ TAB PO ONE (09:00)
[2022-08-22 10:13] VITALS: O2SAT 100
--- NOTE | 2022-08-30 22:21 | P.PN ---
Date of Service: 08/21/22 Subjective Patient given 2 units of packed red blood cells. After blood transfusion patient should be stable for discharge home. Physical Examination - Vital Signs reviewed - Physical Exam General: Alert, In no apparent distress, Other (pale) Respiratory: Clear to auscultation bilaterally, Normal air movement Cardiovascular: Regular rate/rhythm, Normal S1 S2 Gastrointestinal: Normal bowel sounds, No tenderness Musculoskeletal: No tenderness Neurological: Normal speech, Normal affect Assessment and Plan - Problems (Diagnosis) (1) Anemia Current Visit: Yes Status: Acute Qualifiers: Anemia type: due to chronic kidney disease Chronic kidney disease stage: on chronic dialysis Qualified Code(s): N18.6 - End stage renal disease; D63.1 - Anemia in chronic kidney disease; Z99.2 - Dependence on renal dialysis (2) ESRD (end stage renal disease) on dialysis Current Visit: Yes Status: Chronic (3) CHF (congestive heart failure) Current Visit: Yes Status: Chronic Qualifiers: Heart failure type: diastolic Heart failure chronicity: acute on chronic Qualified Code(s): I50.33 - Acute on chronic diastolic (congestive) heart failure (4) COPD (chronic obstructive pulmonary disease) Current Visit: Yes Status: Chronic Qualifiers: COPD type: unspecified COPD Qualified Code(s): J44.9 - Chronic obstructive pulmonary disease, unspecified (5) Hypertension Current Visit: Yes Status: Chronic Qualifiers: Hypertension type: primary hypertension Qualified Code(s): I10 - Essential (primary) hypertension (6) Type 2 diabetes mellitus Current Visit: Yes Status: Chronic Qualifiers: Diabetes mellitus penitentiary insulin use: with penitentiary use Diabetes mellitus complication status: with hyperglycemia Qualified Code(s): E11.65 - Type 2 diabetes mellitus with hyperglycemia; 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 (7) Atrial fibrillation Current Visit: Yes Status: Chronic Qualifiers: Atrial fibrillation type: unspecified chronic Qualified Code(s): I48.20 - Chronic atrial fibrillation, unspecified; I48.2 - Chronic atrial fibrillation - Plan Severe anemia/acute on chronic anemia of chronic disease Elevated Troponin ESRD on HD MWF Insulin Dependent Type 2 Diabetes Chronic respiratory failure with underlying chronic diastolic congestive heart failure/COPD on home O22.5 L Chronic A-fib Hypertension Hyperlipidemia Plan is to go ahead and transfuse and once hemoglobin is stable patient should be stable for discharge home. Patient currently doing well and anticipate discharge home tomorrow if continues to improve.
--- NOTE | 2022-08-30 22:23 | P.DS ---
Discharge Date: 08/22/22 Primary Care Provider: Tong Disposition: ROUTINE DISCHARGE Discharge Condition: GOOD Reason for Admission: Anemia in ESRD Brief History of Present Illness: Patient is a 77-year-old male with past medical history of ESRD on HD MWF, COPD on home O2, chronic diastolic CHF, anemia of chronic disease, hypertension, hyperlipidemia, A-fib, and insulin-dependent type 2 diabetes who presented to the emergency department after outpatient labs revealed low hemoglobin. His labs in the emergency department today are significant for hemoglobin 4.8, hct 13.5, sodium 131, chloride 95, BUN 41, creatinine 4.25, trop 111, BNP 72391. Patient denies any melena, hematochezia, hematemesis. He had dialysis yesterday, which he did complete. Nephrology was contacted and recommended 2 units PRBC to be transfused now and for patient to receive hemodialysis tomorrow. Vital signs have been stable. Will admit for further evaluation and management of anemia. Hospital Course: Pt was transfused 2 units of packed red blood cells and patient's hemoglobin has remained stable. Patient is doing well and patient denies any new complaints. We hemodialyzed Patient and patient remains in good spirits and stable for discharge home. Vital Signs/Physical Exam: Temp Pulse Resp BP Pulse Ox 98.1 F 57 16 119/60 100 08/22/22 08:00 08/22/22 08:00 08/22/22 08:00 08/22/22 08:00 08/22/22 08:00 General: Alert, In no apparent distress, Oriented x3 Laboratory Data at Discharge: WBC 4.50 thou/uL (4.3-10.9) 08/22/22 03:54 Hgb 9.2 g/dL (13.6-17.9) L D 08/22/22 03:54 Hct 26.4 % (39.6-49.0) L 08/22/22 03:54 Plt Count 186 thou/uL (152-406) 08/22/22 03:54 PT 15.5 SECONDS (9.5-12.5) H 08/20/22 16:11 INR 1.41 08/20/22 16:11 APTT 29.2 SECONDS (24.3-36.9) 08/20/22 16:11 Sodium 135 mEq/L (136-145) L D 08/22/22 03:54 Potassium 3.4 mEq/L (3.5-5.1) L 08/22/22 03:54 BUN 37 mg/dL (7-18) H 08/22/22 03:54 Creatinine 3.80 mg/dL (0.70-1.30) H 08/22/22 03:54 Glucose 85 mg/dL (74-106) 08/22/22 03:54 Phosphorus 3.8 mg/dL (2.5-4.9) 08/21/22 05:36 Magnesium 2.1 mg/dL (1.6-2.4) 08/21/22 05:36 Home Medications: Atorvastatin Calcium 1 tab PO BEDTIME 10/16/21 Insulin Glargine,Hum.rec.anlog [Basaglar Kwikpen U-100] 50 unit SQ DAILY 10/16/21 Sertraline HCl 50 mg PO DAILY 05/26/22 Nepro Shake [Nepro*] 237 ml PO BID #60 can 05/28/22 Metoprolol Tartrate [Lopressor*] 12.5 mg PO BID 6AM 6PM #30 tab 06/20/22 Epoetin [Retacrit] 10,000 unit IV EVERY HD vial 07/30/22 Pantoprazole [Protonix Tab*] 40 mg PO BID #60 tab 07/30/22 Physician Discharge Instructions: -DC IV and DC home -Follow-up with PCP in 1 to 2 weeks -Follow-up with nephrology for hemodialysis and gastroenterology for possible endoscopy -Please call Dr. Ruiz at [phone] if any questions regarding hospital stay -Please call nursing station at [phone] if any nursing or medication questions -Return to the emergency room if symptoms worsen Diet: Renal Activity: Fall precautions Followup: Naveed Fortune, [Primary Care Provider] - Time spent managing pt's care (in minutes): 35
== END 2022-08-22 11:01 | disposition home or self-care (01) | DRG 811 ==
LOC: ER 15:44 → ERHOLD 20:30 → 2ND 21:09
PROVIDERS: ADMIT Hospitalist; ATTEND Hospitalist
PROC: 30233N1 Transfusion of Nonautologous Red Blood Cells into Peripheral Vein, Percutaneous Approach (ICD-10-PCS; principal; 2022-08-21)
PROC: 5A1D70Z Performance of Urinary Filtration, Intermittent, Less than 6 Hours Per Day (ICD-10-PCS; 2022-08-21)
DX: D63.1 Anemia in chronic kidney disease (principal); I50.33 Acute on chronic diastolic (congestive) heart failure; N18.6 End stage renal disease; I13.2 Hypertensive heart and chronic kidney disease with heart failure and with stage 5 chronic kidney disease, or end stage renal disease; I48.20 Chronic atrial fibrillation, unspecified; J96.10 Chronic respiratory failure, unspecified whether with hypoxia or hypercapnia; E11.22 Type 2 diabetes mellitus with diabetic chronic kidney disease; E11.65 Type 2 diabetes mellitus with hyperglycemia; N25.0 Renal osteodystrophy; J44.9 Chronic obstructive pulmonary disease, unspecified; E78.5 Hyperlipidemia, unspecified; R77.8 Other specified abnormalities of plasma proteins; Z88.8 Allergy status to other drugs, medicaments and biological substances; Z88.5 Allergy status to narcotic agent; Z99.2 Dependence on renal dialysis; Z99.81 Dependence on supplemental oxygen; Z89.422 Acquired absence of other left toe(s); Z87.891 Personal history of nicotine dependence
CPT/HCPCS: 36415; 71045; 80048; 82947; 83735; 83880; 84100; 84484; 85014; 85018; 85025; 85610; 85730; 86850; 86900; 86901; 90935; 93005; 94760; 96374; 99285; J1815; J1940; J7050; P9016

== ENCOUNTER 2022-09-10 12:06 | Inpatient (IN) | payer OTHER, BC ==
--- OUTSIDE RECORDS SUMMARY | 2022-09-10 12:16 | XMS REPORT | Continuity of Care Document ---
:1945 Author Organization [facility] t Address [address] [place] [address] Care Team Providers Name Role Phone Naveed Fortune Attending Clinician Unavailable [id number] Attending Clinician Unavailable CAREY LONG Attending Clinician Unavailable Carey Long Attending Clinician ZACHARY MANCILLA Attending Clinician Unavailable Zachary Mancilla Attending Clinician Damon Velazquez Attending Clinician Pepper Crawford Attending Clinician [phone] PEPPER CRAWFORD Attending Clinician Unavailable DAMON VELAZQUEZ Attending Clinician Unavailable CHILANGO ARMSTRONG NATASHA Attending Clinician Unavailable [id number] Admitting Clinician Unavailable ZACHARY MANCILLA Admitting Clinician Unavailable Zachary Mancilla Admitting Clinician Damon Velazquez Admitting Clinician [phone] DAMON VELAZQUEZ Admitting Clinician Unavailable CHILANGO ARMSTRONG NATASHA Admitting Clinician Unavailable Payers Payer Name Policy Type Policy Number Effective Date Expiration Date S ource MEDICARE PART A [id number] 2011 AND B 00:00:00 [employer] Blue [id number] 2014 [facility] Shield of [place] 00:00:00 - [facility] MCR [id number] BCTX BCTI [id number] MEDICARE MB [id number] 2011 [facility] NOVITAS 00:00:00 - [facility] MEDICARE MB [id number] 2011 [facility] NOVITAS 00:00:00 - [facility] MEDICARE MB [id number] 2011 [facility] NOVITAS 00:00:00 - [facility] Problems Condition Condition Condition Status Onset Resolution Last Treating Co mments Source Name Details Category Date Date Treatment Clinician Date LOW LOW Diagnosis Active 2022-01-02 Mem oria HEMOGLOBIN HEMOGLOBIN 01-02 12:51:00 l COUNT/ COUNT/ 00:00: Booker NEEDING NEEDING 00 DIALYZED DIALYZED Active 01/02/2022 Kimber Celeste PNA DUE TO PNA DUE Diagnosis Active 2022-08-31 Memoria COVID-19 TO 12-14 21:48:00 l VIRUS COVID-19 00:00: [place] VIRUS 00 Active 12/14/2021 [facility] Booker DIFFICULTY DIFFICULT Diagnosis Active 2021-12-14 Memakosua BREATHING Y 12-14 17:56:00 l BREATHING 00:00: Booker Active 00 12/14/2021 [facility] Booker ABNORNAL ABNORNAL Diagnosis Active 2021-12-16 Memoria LAB LAB Active 12-03 05:50:00 l 12/03/2021 08:00: Thomas moyer [place] [id number] Booker ANEMIA, ANEMIA, Diagnosis Active 2021-12-16 Memoria COVID-19 COVID-19 11-24 05:50:00 l Active 00:00: Booker 11/24/2021 00 [facility] Booker LOW LOW Diagnosis Active 2021-11-24 Mem oria HEMOGOBLIN HEMOGOBLIN 11-24 23:20:00 l Active 00:00: [place] 11/24/2021 00 [facility] Booker Dependence Dependenc Problem Active 2022-01-04 Memoria on e on 23:08:30 l hemodialys hemodialys He rmann is due to is due to end stage end stage renal renal disease disease (finding) (finding) Active Problem 01/04/[address] [facility] End stage End stage Problem Active 2022-01-04 Memoria renal renal 23:08:30 l failure on failure on He rmann dialysis dialysis (disorder) (disorder) Active Problem 01/04/2022 [facility] COVID-19 COVID-19 Diagnosis Active 2022-08-31 Memoria Active 21:48:00 l [facility] ANEMIA, ANEMIA, Diagnosis Active 2021-12-16 Memoria UNSPECIFIE UNSPECIFIE 05:50:00 l D D Active [facility] [id number] Other Problem Common obesity Spirit due to - [facility] excess [facility] [id number] Metabolic Problem Com mon syndrome Spirit - [facility] [id number] Body mass Problem Com mon index Spirit [BMI] - [facility] 30.0-30.9, [facility] [id number] Frailty Problem Commo n syndrome Spirit in - [facility] geriatric [facility] 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 - CHI , single major St episode depressive [facility] Medical [facility] prior episode 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 - [facility] Chronic Chronic Problem Common systolic systolic Spirit heart congestive - [facility]I failure heart failure [facility] [id number] 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 - [facility] [id number] GERD Problem Common without Spirit esophagiti - CHI s [facility] [id number] Type 2 Problem Common diabetes Spirit mellitus - [facility] with [facility] [id number] Mixed Problem Common hyperlipid Spirit emia - CH[facility] [id number] Noncomplia Problem Co mmon nce of Spirit patient - [facility] with [facility] [place] Chronic +5th digit Problem Comm on atrial eff Spirit fibrillati 02/28/19*Ch - [facility]I on ronic St (disorder) [facility] [id number] 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 Chronic Chronic Problem Common obstructiv obstructiv Sp jerome e lung e - CHI disease pulmonary St disease, [place] [facility] unspecifie Medica l d COPD Center type [id number] Heart Problem Common failure, Spirit congestive - [facility] , etiology [facility] [id number] Constipati Problem Com mon on, Spirit unspecifie - CHI d constipati [facility] on [facility] [id number] Memory Problem Common impairment Spirit of gradual - CHI onset [facility] [id number] HTN, goal Problem Comm on below Spirit 130/80 - CHI [facility] [id number] Anemia of Problem Com mon chronic Spirit disease - [facility] [id number] [employer] Problem Com mon (current) Spirit use of - CHI insulin [facility] [id number] Benign Problem Common prostatic Spirit hyperplasi - [facility]I a without 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 [facility] Hypertensi Hypertensi Problem C ommon ve heart ve chronic Spir it AND kidney - CHI chronic disease St kidney with stage [facility] disease 5 chronic Medica l stage 5 kidney Center (disorder) disease or end stage renal disease History of Past Illness Condition Condition Condition Status Onset Resolution Last Treating Co mments Source Name Details Category Date Date Treatment Clinician Date Anemia, Anemia, Problem 2021-12-06 2021-12-06 Memoria unspecifie unspecifie 12-04 21:45:40 21:45:40 l d d 06:34: Booker 12/04/2021 00 12/06/[address] [facility] Allergies, Adverse Reactions, Alerts Allergy Allergy Status Severity Reaction(s) Onset Inactive Treating Comm ents Source Name Type Date Date Clinician gabapent gabapent Active Unknown Commo n in in [facility] codeine codeine Active Unknown Common [facility] codeine codeine Active Memoria l [place] gabapent gabapent Active Memori a in in l [place] Social History Social Habit Start Date Stop Date Quantity Comments Source History of Tobacco Use Co mmon [facility] Sex Assigned At Com mon [facility] Smoking Status Start Date Stop Date Source Social History 2021-12-04 02:37:37 2021-12-04 02:37:37 [facility] Medications Ordered Filled Start Stop Current Ordering Indication Dosage Frequency Signature Comments Components Source Medication Medication Date Date Medication? Clinician (SIG) Name Name Lantus Lantus 2021-0 No Lantus SoloStar SoloStar [...] UNIT/ML 100 UNIT/ML 00:00: 100 00 UNIT/ML aspirin 2-0 No Notes: Do Memor ia 7-20 not crush l 14:00: or chew. Milroy 00 (Same As: Ecotrin) Procardia No Notes: Memori a XL 30 mg 7-20 (Same as: l oral 14:00: Adalat CC, Booker tablet, 00 Procardia extended XL) Give release on empty stomach. Take 1 hour before or 2 hours after meal; "Avoid grapefruit and grapefruit juice". Do not crush Epogen No Notes: Memoria (ESRD) 7-20 Same as: l 14:00: Retacrit) epoetin shannon-epbx 45468 unit/1 ml VL. For dialysis use only. WASTE: F/P - Red; E Red MEDICATION WASTE Product Size: 04027 unit Product Wasted: ___ unit Lipitor No Notes: Memoria 7-20 (Same as: l 02:00: Lipitor) cefdinir No Notes: Memoria 300 mg oral 7-19 (Same As: l capsule 22:00: Omnicef) Thomas n 00 dexamethaso Yes 6 mg = 1 Me moria ne 6 mg 7-19 tab, PO, l oral tablet 21:19: Daily, X 3 day, # 3 tab, 0 Refill(s), Pharmacy: [id number], 177.8, cm, 12/14/21 22:03:00 CDT, Height, 95.2, kg, 12/14/21 22:03:00 CDT, Weight guaiFENesin No 600 mg = 1 Memoria 600 mg oral 7-19 tab, PO, l tablet, 20:31: Q12H, # 20 Herm silas extended 00 tab, 0 release Refill(s) pregabalin Yes 50 mg = 1 Me moria 50 mg oral 7-19 cap, PO, l capsule 20:30: BID, # 60 Lauryn nn 00 cap, 1 Refill(s) melatonin 3 Yes 3 mg = 1 Me moria mg oral 7-19 tab, PO, l tablet 20:29: Bedtime, Milroy 00 PRN for insomnia, # 14 tab, 0 Refill(s) Colace 100 Yes 100 mg = 1 M emoria mg oral 7-19 cap, PO, l capsule 20:28: BID, PRN Thomas n 00 Constipati on, # 20 cap, 0 Refill(s) bisacodyl 5 Yes 10 mg = 2 M emoria mg oral 7-19 tab, PO, l enteric 20:27: Daily, PRN Herm silas coated 00 Constipati tablet on, # 20 tab, 0 Refill(s) carvedilol Yes 12.5 mg = Me moria 12.5 mg 7-19 1 tab, PO, l oral tablet 20:27: Q12H, # 60 Milroy 00 tab, 0 Refill(s) aspirin 81 Yes 81 mg = 1 Me moria mg tablet, 7-19 tab, PO, l enteric 20:26: Daily, # Thomas n coated 00 90 tab, 3 Refill(s) azithromyci No Notes: Heath bobo n 250 mg 12-16 Take 1 l oral tablet 19:00: hour Thomas n 00 before or 2 hours after meals. (Same As: Zithromax) sevelamer No Notes: Memori a 12-16 Same as: l 13:00: Renvela Booker albumin Yes Notes: Lot Heath bobo human 25% 12-16 #: l intravenous 02:33: Milroy solution 00 ___ Mfg: (Same as: Plasbumin- 25) "blood product derivative " WASTE: F/P - Red; E -Red MEDICATION WASTE Product Size: 25 gm Product Wasted: ___ gm azithromyci No Notes: Heath bobo n + Sodium 18 (Same As: l Chloride 19:00: Zithromax Herm silas 0.9% IV 250 00 IV) mL dexamethaso No Notes: Heath bobo ne -18 Give with l 14:00: food. Booker albuterol-i No Notes: Heath bobo pratropium 18 Same as: l 13:00: Combivent Booker 00 Respimat WASTE: Aerosol - Return to Pharmacy heparin No 5,000 Memoria 7-18 unit, l 05:00: Route: Booker 00 SUB-Q, Q8H, Dosing Weight 95.455, kg, Start date: 12/15/21 0:00:00 CDT, Stop date: 01/13/22 16:00:00 CDT heparin No Notes: Memoria 7-18 porcine l 02:00: heparin Booker 00 albuterol-i No Notes: Heath bobo pratropium 7-18 (Same as: l 2.5-0.5 mg 01:00: Duoneb) Herm silas inhalation 00 solution vancomycin No 2000 mg: Me moria + Sodium 7-18 infuse l Chloride 00:37: over 2.5 Lauryn nn 0.9% IV 250 00 hours For mL adult patients only: Round to nearest 250 mg per Medical Staff approval MEDICATION WASTE Product Size: 1000 mg Product Wasted: ___ mg azithromyci No Notes: Heath bobo n + Sodium 7-18 (Same As: l Chloride 00:00: Zithromax Herm silas 0.9% IV 250 00 IV) mL cefepime + No Notes: Memor ia Sodium 7-18 (Same As: l Chloride 00:00: Maxipime) Herm silas 0.9% IV 50 00 mL MEDICATION WASTE Product Size: 1000 mg Product Wasted: ___ mg Dextrose No 125 mL, Memori a 10% in 12-14 Rate: 999 l Water IV 23:57: ml/hr, Milroy 00 Infuse over: 0.1 hr, Route: IV, Total Volume: 125, Start date: 12/14/21 18:57:00 CDT, Duration: 30 day, Stop date: 01/13/22 18:56:00 CDT, PRN Blood Glucose Results, 0 Dextrose No 250 mL, Memori a 10% in 12-14 Rate: 999 l Water IV 23:53: ml/hr, Booker 00 Infuse over: 0.3 hr, Route: IV, Total Volume: 250, Start date: 12/14/21 18:53:00 CDT, Duration: 30 day, Stop date: 01/13/22 18:52:00 CDT, PRN Blood Glucose Results, 0 Vancomycin No Notes: Kelsey ia Pharmacy 12-14 Vancomycin l Dosing 23:36: Pharmacy Booker Consult 47 Dosing Protocol PHARMAC Y USE ONLY Note: This is not a medication order. This is a consultati on order. simethicone No Notes: Heath bobo - (Same as: l 23:30: Mylicon) ondansetron No Notes: Heath bobo 7-17 (Same as: l 23:30: Zofran) MEDICATION WASTE Product Size: 4 mg Product Wasted: ___ mg dextrometho No Notes: Heath bobo rphan-guaiF 12-14 (dextromet l ENesin 10 23:30: horphan-gu He rmann mg-100 mg/5 00 aifenesin mL oral 10-100mg/5 liquid ml 10 ml oral SOLN ud) (Same as: Robitussin DM) diphenhydrA No 25 mg, 1 Me moria MINE - tab, l 23:30: Route: PO, Drug form: TAB, Q6H, Dosing Weight 95.455, kg, PRN Itching, Start date: 12/14/21 18:30:00 CDT, Duration: 30 day, Stop date: 01/13/22 18:29:00 CDT, 0 acetaminoph No Notes: Do M emoria en - not exceed l 23:30: 4 gm/day. (Same as: Tylenol) albuterol-i No Notes: Heath bobo pratropium - (Same as: l 2.5-0.5 mg 23:30: Duoneb) inhalation solution Chlorasepti No Notes: Heath bobo c 1.4% 12-14 Chlorasept l spray 23:30: ic [place] (Same as: Chlorasept ic, Sore Throat [place]) WASTE: F/P - Black; E - Municipal Trash Bin Colace 100 No Notes: Memor ia mg oral 7-17 (Same as: l capsule 23:30: Colace) (Do Not Crush) hydrALAZINE No Notes: Heath bobo 7-17 (Same as: l 23:30: Apresoline ) Push over 5 minutes melatonin 3 No Notes: Heath bobo mg oral 7-17 (Same as: l tablet 23:30: Melatonin) Lauryn nn Pepcid 20 No Notes: Memori a mg oral 7-17 (Same as: l tablet 23:30: Pepcid) Davis 5/325 No Notes: Heath bobo oral tablet 7-17 (Same as: l 23:30: Davis 325/5) Do not exceed 4gm/day of acetaminop hen. morphine No 1 mg, 0.5 Heath bobo Sulfate 7-17 mL, Route: l 23:30: IVP, Drug form: SOLN, Q4H, Dosing Weight 95.455, kg, PRN Pain Score 7-10, Start date: 12/14/21 18:30:00 CDT, Duration: 30 day, Stop date: 01/13/22 18:29:00 CDT, 0 Dextrose 2021-0 No 25 mL, Memoria 50% Syringe 7-17 Route: l (D50W) 23:29: IVP, Dosing Weight 95.455, kg, PRN, PRN Blood Glucose Results, Start date: 12/14/21 18:29:00 CDT, Duration: 30 day, Stop date: 01/13/22 18:28:00 CDT glucagon 2021- No 1 mg, Memoria 7-17 Route: IM, l 23:29: Drug form: PDR/INJ, PRN, Dosing Weight 95.455, kg, PRN Blood Glucose Results, Start date: 12/14/21 18:29:00 CDT, Duration: 30 day, Stop date: 01/13/22 18:28:00 CDT, 0 insulin No Notes: Memoria lispro 7-17 (Same as: l 23:29: Humalog) Roll in palms of hands gently; Do not shake vigorously . WASTE: F/P - Black; E - Municipal Trash Bin Stable for 28 days at room temperatur e. Expires in days from ____Date Tessalon No Notes: Memoria Perles 7-17 (Same As: l 23:28: Tessalon Perles) "Do Not Crush" zinc No Notes: Memoria sulfate 7- (Zinc l 23:28: sulfate capsule) - 220 mg Zinc sulfate = 50 mg elemental zinc Same as Zinc Sulfate ascorbic No Notes: Memoria acid 7- (Same as: l 23:28: Vitamin C) aspirin No Notes: Memoria 7-17 Take with l 22:40: food. Rocephin + No Notes: Memor ia Sodium - (Same As: l Chloride 22:40: Rocephin). Her clayton 0.9% IV 50 00 Use with mL 100 mL NS and infuse over 30 min MEDICATION WASTE Product Size: 1000 mg Product Wasted: ___ mg azithromyci No Notes: Heath bobo n + Sodium -17 (Same As: l Chloride 22:40: Zithromax Herm silas 0.9% IV 250 00 IV) mL Dextrose No 250 mL, Memori a 10% in 12-14 Rate: 999 l Water IV 21:08: ml/hr, Infuse over: 0.3 hr, Route: IV, Total Volume: 250, Start date: 12/14/21 16:08:00 CDT, Stop date: 12/14/21 16:08:00 CDT, 0 d50 syringe No 25 mL, Heath bobo 7-17 Route: l 20:41: IVP, Dosing Weight 95.455, kg, ONCE, STAT, Start date: 12/14/21 15:41:00 CDT, Stop date: 12/14/21 15:41:00 CDT, 25 ml = 12.5 gm Sodium No 250 mL, Memoria Chloride 7-07 Rate: To l 0.9% 01:29: prime line Booker (titrate) 00 and flush 250 mL remaining blood products., Dosing Weight 88.636, kg, Route: IV, Total Volume: 250, Start Date: 12/03/21 20:29:00 CDT, Duration: 1 day, Stop date: 12/04/21 20:28:00 CDT, Replace Every: 24 hr, 0 Plavix 75 Yes 75 mg = 1 Mem oria mg oral 11-25 tab, PO, l tablet 19:37: Daily, # Booker 00 30 tab, 0 Refill(s), other Protonix No Notes: For Mem oria 11-25 IV push l 14:00: reconstitu te with 10 ml 0.9% sodium chloride and push over 2 minutes. (Same as: Protonix) atorvastati No Notes: Heath bobo n 11-25 (Same as: l 14:00: Lipitor) citalopram No Notes: Memor ia 11-25 (Same As: l 14:00: CeleXA) dexamethaso No Notes: Heath bobo ne 11-25 Concentrat l 06:42: ion: [place] 00 4mg/ml No 125 mL, Memoria (bolus) IV 11-25 Rate: 999 l 06:31: ml/hr, Booker 00 Infuse over: 0.1 hr, Route: IVPB, Total Volume: 125, Start date: 11/25/21 1:31:00 CDT, Duration: 30 day, Stop date: 12/25/21 1:30:00 CDT, PRN Blood Glucose Results, 0 D1 No 250 mL, Memoria (bolus) IV 11-25 Rate: 999 l 06:23: ml/hr, Milroy 00 Infuse over: 0.3 hr, Route: IVPB, Total Volume: 250, Start date: 11/25/21 1:23:00 CDT, Duration: 30 day, Stop date: 12/25/21 1:22:00 CDT, PRN Blood Glucose Results, 0 Dextrose No 25 mL, Memoria 50% Syringe 11-25 Route: l (D50W) 05:55: IVP, Booker 00 Dosing Weight 94.545, kg, PRN, PRN Blood Glucose Results, Start date: 11/25/21 0:55:00 CDT, Duration: 30 day, Stop date: 12/25/21 0:54:00 CDT glucagon No 1 mg, Memoria 11-25 Route: IM, l 05:55: Drug form: PDR/INJ, PRN, Dosing Weight 94.545, kg, PRN Blood Glucose Results, Start date: 11/25/21 0:55:00 CDT, Duration: 30 day, Stop date: 12/25/21 0:54:00 CDT, 0 insulin No Notes: Memoria lispro 11-25 (Same as: l 05:55: Humalog) Roll in palms of hands gently; Do not shake vigorously . WASTE: F/P - Black; E - Municipal Trash Bin Stable for 28 days at room temperatur e. Expires in days from ____Date Zofran No Notes: Memoria 11-25 (Same as: l 05:54: Zofran) MEDICATION WASTE Product Size: 4 mg Product Wasted: ___ mg Tylenol No Notes: Do Memor ia 11-25 not exceed l 05:54: 4 gm/day. (Same as: Tylenol) Tessalon No Notes: Memoria Perles 11-25 (Same As: l 05:54: Tessalon Perles) "Do Not Crush" simethicone No Notes: Heath bobo 11-25 (Same as: l 05:54: Mylicon) senna 8.6 No Notes: Memori a mg oral 11-25 (Same as: l tablet 05:54: Senokot) Colace 50 No Notes: Memori a mg oral 11-25 (Same as: l capsule 05:54: Colace) citalopram Yes 0 Memoria 20 mg oral 6-28 Refill(s) l tablet 05:53: pantoprazol Yes 0 Memori a e 40 mg 6-28 Refill(s) l oral 05:53: enteric 00 coated tablet clindamycin Yes 0 Memori a 300 mg oral 6-28 Refill(s) l capsule 05:53: clopidogrel No 0 Memori a 75 mg oral 6-28 Refill(s) l tablet 05:53: atorvastati Yes 0 Memori a n 40 mg 6-28 Refill(s) l oral tablet 05:53: Thomas n Basaglar Yes 0 Memoria KwikPen 100 6-28 Refill(s) l units/mL 05:53: utaneou 00 s solution Dialyvite Yes 0 Memoria 800 Ultra D 6-28 Refill(s) l oral tablet 05:53: Thomas n glipiZIDE Yes 0 Memoria 10 mg oral 6-28 Refill(s) l tablet 05:53: cefTRIAXone No Notes: Heath bobo + Sodium 6-28 (Same As: l Chloride 05:27: Rocephin). Her clayton 0.9% IV 50 00 Use with mL 100 mL NS and infuse over 30 min MEDICATION WASTE Product Size: 1000 mg Product Wasted: ___ mg Protonix No Notes: For Mem oria 6-28 IV push l 03:37: reconstitu 00 te with 10 ml 0.9% sodium chloride and push over 2 minutes. (Same as: Protonix) Advair HFA Advair HFA Yes Naveed 2 puffs Common 1-15 Fortune [facility] 00:00: - [facility] 00 [facility] BD BD 2018-05 Yes Naveed 1 needle Common Ultra-Fine Ultra-Fine 0-09 Fortune with Sp jerome Christina Pen Christina Pen 00:00: Basaglar - CHI Muir Muir 00 [facility] BD BD 2018-05 No QD BD Ultra-Fine Ultra-Fine 0-09 Ultra-Fine Christina Pen Christina Pen 00:00: Christina Pen Muir 4mm Muir 4mm 00 Muir x 32Gm x 32Gm 4mm x 32Gm [facility] 2018- No QD BD Ultra-Fine Ultra-Fine 0-09 Ultra-Fine Christina Pen Christina Pen 00:00: Christina Pen Muir 4mm Muir 4mm 00 Muir x 32Gm x 32Gm 4mm x 32Gm [facility] 2018- No QD BD Ultra-Fine Ultra-Fine 0-09 Ultra-Fine Christina Pen Christina Pen 00:00: Christina Pen Muir 4mm Muir 4mm 00 Muir x 32Gm x 32Gm 4mm x 32Gm [facility] 2018- No QD BD Ultra-Fine Ultra-Fine 0-09 Ultra-Fine Christina Pen Christina Pen 00:00: Christina Pen Muir 4mm Muir 4mm 00 Muir x 32Gm x 32Gm 4mm x 32Gm [facility] 2018- No QD BD Ultra-Fine Ultra-Fine 0-09 Ultra-Fine Christina Pen Christina Pen 00:00: Christina Pen Muir 4mm Muir 4mm 00 Muir x 32Gm x 32Gm 4mm x 32Gm [facility] 2018- No QD BD Ultra-Fine Ultra-Fine 0-09 Ultra-Fine Christina Pen Christina Pen 00:00: Chirstina Pen Muir 4mm Muir 4mm 00 Muir x 32Gm x 32Gm 4mm x 32Gm [facility] 2018- No QD BD Ultra-Fine Ultra-Fine 0-09 Ultra-Fine Christina Pen Christina Pen 00:00: Christina Pen Muir 4mm Muir 4mm 00 Muir x 32Gm x 32Gm 4mm x 32Gm [facility] 2018-05 No QD BD Ultra-Fine Ultra-Fine 0-09 Ultra-Fine Christina Pen Christina Pen 00:00: Christina Pen Muir 4mm Muir 4mm 00 Muir x 32Gm x 32Gm 4mm x 32Gm [facility] 2018-05 No QD BD Ultra-Fine Ultra-Fine 0-09 Ultra-Fine Christina Pen Christina Pen 00:00: Christina Pen Muir 4mm Muir 4mm 00 Muir x 32Gm x 32Gm 4mm x 32Gm [facility] 2018- No QD BD Ultra-Fine Ultra-Fine 0-09 Ultra-Fine Christina Pen Christina Pen 00:00: Christina Pen Muir 4mm Muir 4mm 00 Muir x 32Gm x 32Gm 4mm x 32Gm [facility] 2018- No QD BD Ultra-Fine Ultra-Fine 0-09 Ultra-Fine Christina Pen Christina Pen 00:00: Christina Pen Muir 4mm Muir 4mm 00 Muir x 32Gm x 32Gm 4mm x 32Gm [facility] 2018- No QD BD Ultra-Fine Ultra-Fine 0-09 Ultra-Fine Christina Pen Christina Pen 00:00: Christina Pen Muir 4mm Muir 4mm 00 Muir x 32Gm x 32Gm 4mm x 32Gm [facility] 2018- No QD BD Ultra-Fine Ultra-Fine 0-09 Ultra-Fine Christina Pen Christina Pen 00:00: Christina Pen Muir 4mm Muir 4mm 00 Muir x 32Gm x 32Gm 4mm x 32Gm [facility] 2018- No QD BD Ultra-Fine Ultra-Fine 0-09 Ultra-Fine Christina Pen Christina Pen 00:00: Christina Pen Muir 4mm Muir 4mm 00 Muir x 32Gm x 32Gm 4mm x 32Gm [facility] 2018- No QD BD Ultra-Fine Ultra-Fine 0-09 Ultra-Fine Christina Pen Christina Pen 00:00: Christina Pen Muir 4mm Muir 4mm 00 Muir x 32Gm x 32Gm 4mm x 32Gm [facility] 2018- No QD BD Ultra-Fine Ultra-Fine 0-09 Ultra-Fine Christina Pen Christina Pen 00:00: Christina Pen Muir 4mm Muir 4mm 00 Muir x 32Gm x 32Gm 4mm x 32Gm [facility] 2018-05 No QD BD Ultra-Fine Ultra-Fine 0-09 Ultra-Fine Christina Pen Christina Pen 00:00: Christina Pen Muir 4mm Muir 4mm 00 Muir x 32Gm x 32Gm 4mm x 32Gm [facility] 2018- No QD BD Ultra-Fine Ultra-Fine 0-09 Ultra-Fine Christina Pen Christina Pen 00:00: Christina Pen Muir 4mm Muir 4mm 00 Muir x 32Gm x 32Gm 4mm x 32Gm [facility] 2018- No QD BD Ultra-Fine Ultra-Fine 0-09 Ultra-Fine Christina Pen Christina Pen 00:00: Christina Pen Muir 4mm Muir 4mm 00 Muir x 32Gm x 32Gm 4mm x 32Gm [facility] 2018- No QD BD Ultra-Fine Ultra-Fine 0-09 Ultra-Fine Christina Pen Christina Pen 00:00: Christina Pen Muir 4mm Muir 4mm 00 Muir x 32Gm x 32Gm 4mm x 32Gm [facility] 2018- No QD BD Ultra-Fine Ultra-Fine 0-09 Ultra-Fine Christina Pen Christina Pen 00:00: Christina Pen Muir 4mm Muir 4mm 00 Muir x 32Gm x 32Gm 4mm x 32Gm BD BD 2019- No QD BD Ultra-Fine Ultra-Fine 0-09 Ultra-Fine Christina Pen Christina Pen 00:00: Christina Pen Muir 4mm Muir 4mm 00 Muir x 32Gm x 32Gm 4mm x 32Gm Tums E-X Tums E-X Yes Naveed 1 tablet C ommon 750 750 Fortune [facility] Basaglar Basaglar Yes Naveed 52 Units C ommon KwikPen KwikPen Fortune [facility] PreserVisio PreserVisio Yes Naveed as Common n AREDS n AREDS Fortune directed [facility] Citalopram Citalopram Yes Naveed 1 tablet Common Hydrobromid Hydrobromid Fortune [facility] e e [facility] Stool Stool Yes Naveed not Common Softener Softener Frotune defined [facility] rit [facility] Gentle Gentle Yes Naveed 1 tablet Commo n Laxative Laxative Fortune as needed S pirit [facility] Atorvastati Atorvastati Yes Naveed 1 tablet Common n Calcium n Calcium Fortune Spir [facility] Contour Contour Yes Naveed USE 3 Common Test Test Fortune TIMES A [facility] Eliquis 2.5 Eliquis 2.5 Yes Naveed 1 tablet Common mg mg Fortune [facility] Multivitami Multivitami Yes Naveed as Common n Adult n Adult Fortune directed [facility] Carvedilol Carvedilol Yes Naveed TAKE 1 Common [facility] TABLET BY Spirit MOUTH - [facility] TWICE A [facility] DAY ON [facility] DIALYSIS Medical DAYS [place] Atorvastati Atorvastati Yes Naveed TAKE 1 Common n Calcium n Calcium Fortune TABLET BY Spirit MOUTH - CHI EVERY DAY [facility] GlipiZIDE GlipiZIDE Yes Naveed 1 tablet Common [facility] Basaglar Basaglar Yes Naveed 50 Units C ommon KwikPen KwikPen [facility] Advair HFA Advair HFA No [...] Dexcom G6 Dexcom G6 No Dexcom G6 Blocking Machine Operator Second - Blocking Machine Operator Second - Blocking Machine Operator Second - Carvedilol Carvedilol No Carvedilol 12.5 MG [...] Dexcom G6 Dexcom G6 No Dexcom G6 Blocking Machine Operator Second - Blocking Machine Operator Second - Blocking Machine Operator Second - glipiZIDE 5 glipiZIDE 5 No 1{table [...] Dexcom G6 Dexcom G6 No Dexcom G6 Blocking Machine Operator Second - Blocking Machine Operator Second - Blocking Machine Operator Second - Ipratropium Ipratropium No Ipratropiu -Albuterol -Albuterol [...] Dexcom G6 Dexcom G6 No Dexcom G6 Blocking Machine Operator Second - Blocking Machine Operator Second - Blocking Machine Operator Second - Gentle Gentle No 1{table QD Gentle [...] Dexcom G6 Dexcom G6 No Dexcom G6 Blocking Machine Operator Second - Blocking Machine Operator Second - Blocking Machine Operator Second - PreserVisio PreserVisio No PreserVisi n AREDS [...] Dexcom G6 Dexcom G6 No Dexcom G6 Blocking Machine Operator Second - Blocking Machine Operator Second - Blocking Machine Operator Second - Advair HFA Advair HFA No 2{puffs [...] Dexcom G6 Dexcom G6 No Dexcom G6 Blocking Machine Operator Second - Blocking Machine Operator Second - Blocking Machine Operator Second - Advair HFA Advair HFA No 2{puffs [...] Dexcom G6 Dexcom G6 No Dexcom G6 Blocking Machine Operator Second - Blocking Machine Operator Second - Blocking Machine Operator Second - Advair HFA Advair HFA No 2{puffs [...] Dexcom G6 Dexcom G6 No Dexcom G6 Blocking Machine Operator Second - Blocking Machine Operator Second - Blocking Machine Operator Second - Atorvastati Atorvastati No 1{table QD Atorvastat [...] Dexcom G6 Dexcom G6 No Dexcom G6 Blocking Machine Operator Second - Blocking Machine Operator Second - Blocking Machine Operator Second - Atorvastati Atorvastati No Atorvastat n Calcium [...] Dexcom G6 Dexcom G6 No Dexcom G6 Blocking Machine Operator Second - Blocking Machine Operator Second - Blocking Machine Operator Second - Atorvastati Atorvastati No Atorvastat n Calcium [...] Pen No BD Pen Needle Christina Needle Christnia Needle U/F 32G X 4 U/F 32G [...] FluAD 2021-03-30 [facility]pleted [facility] 13:13:[facility] - [facility] FluAD FluAD 2021-03-30 Completed [facility] 13:13:00 - [facility] FluAD FluAD 2021-03-30 Completed [facility] 13:13:[facility] - [facility] FluAD FluAD 2021-03-30 Completed [facility] 13:13:[facility] - [facility] FluAD FluAD 2021-03-30 Completed [facility] 13:13:00 - [facility] FluAD FluAD 2021-03-30 Completed [facility] 13:13:[facility] - [facility] FluAD FluAD 2021-03-30 Completed [facility] 13:13:[facility] - [facility] FluAD FluAD 2021-03-30 Completed [facility] 13:13:[facility] - [facility] FluAD FluAD 2021-03-30 Completed [facility] 13:13:[facility] - [facility] FluAD FluAD 2021-03-30 Completed [facility] 13:13:[facility] - [facility] FluAD FluAD 2021-03-30 Completed [facility] 13:13:00 - [facility] FluAD FluAD 2021-03-30 Completed [facility] 13:13:00 - [facility] FluAD FluAD 2021-03-30 Completed [facility] 13:13:00 - [facility] FluAD FluAD 2021-03-30 Completed [facility] 13:13:00 - [facility] FluAD FluAD 2021-03-30 Completed [facility] 13:13:[facility] - [facility] FluAD FluAD 2021-03-30 Completed [facility] 13:13:00 - [facility] FluAD FluAD 2021-03-30 Completed [facility] 13:13:00 - [facility] FluAD FluAD 2021-03-30 Completed [facility] 13:13:00 - [facility] FluAD FluAD 2021-03-30 Completed [facility] 13:13:00 - [facility] FluAD FluAD 2021-03-30 Completed [facility] 13:13:[facility] - [facility] COVID-19 Vaccine COVID-19 Vaccine 2020-08-19 Completed Co mmon [facility] (Andrea) (Andrea) 09:17:00 - [facility] COVID-19 Vaccine COVID-19 Vaccine 2020-08-19 Completed Co [facility] (Andrea) (Andrea) 09:17:00 - [facility] COVID-19 Vaccine COVID-19 Vaccine 2020-08-19 Completed [facility] (Andrea) (Andrea) 09:17:00 - [facility] COVID-19 Vaccine COVID-19 Vaccine 2020-08-19 Completed Co [facility] (Andrea) (Andrea) 09:17:00 [facility] COVID-19 Vaccine COVID-19 Vaccine 2020-08-19 Completed Co [facility] (Andrea) (Andrea) 09:17:00 - [facility] COVID-19 Vaccine COVID-19 Vaccine 2020-08-19 Completed Co [facility] (Andrea) (Andrea) 09:17:00 - [facility] COVID-19 Vaccine COVID-19 Vaccine 2020-08-19 Completed Co [facility] (Andrea) (Andrea) 09:17:00 [facility] COVID-19 Vaccine COVID-19 Vaccine 2020-08-19 Completed Co [facility] (Andrea) (Andrea) 09:17:00 [facility] COVID-19 Vaccine COVID-19 Vaccine 2020-08-19 Completed Co [facility] (Andrea) (Andrea) 09:17:00 [facility] COVID-19 Vaccine COVID-19 Vaccine 2020-08-19 Completed Co [facility] (Andrea) (Andrea) 09:17:00 [facility] COVID-19 Vaccine COVID-19 Vaccine 2020-08-19 Completed Co [facility] (Andrea) (Andrea) 09:17:00 [facility] COVID-19 Vaccine COVID-19 Vaccine 2020-08-19 Completed Co [facility] (Andrea) (Andrea) 09:17:00 [facility] COVID-19 Vaccine COVID-19 Vaccine 2020-08-19 Completed Co [facility] (Andrea) (Andrea) 09:17:00 - [facility] COVID-19 Vaccine COVID-19 Vaccine 2020-08-19 Completed Co [facility] (Andrea) (Andrea) 09:17:00 [facility] COVID-19 Vaccine COVID-19 Vaccine 2020-08-19 Completed Co [facility] (Andrea) (Andrea) 09:17:00 [facility] COVID-19 Vaccine COVID-19 Vaccine 2020-08-19 Completed Co [facility] (Andrea) (Andrea) 09:17:00 [facility] COVID-19 Vaccine COVID-19 Vaccine 2020-08-19 Completed Co [facility] (Andrea) (Andrea) 09:17:00 [facility] COVID-19 Vaccine COVID-19 Vaccine 2020-08-19 Completed Co [facility] (Andrea) (Andrea) 09:17:00 [facility] COVID-19 Vaccine COVID-19 Vaccine 2020-08-19 Completed Co [facility] (Andrea) (Andrea) 09:17:00 [facility] COVID-19 Vaccine COVID-19 Vaccine 2020-08-19 Completed [facility] (Andrea) (Andrea) 09:17:00 [facility] COVID-19 Vaccine COVID-19 Vaccine 2020-08-19 Completed Co [facility] (Andrea) (Andrea) 09:17:00 [facility] COVID-19 Vaccine COVID-19 Vaccine 2020-08-19 Completed Co [facility] (Andrea) (Andrea) 09:17:00 [facility] Vital Signs Vital Name Observation Time Observation Value Comments Source height 2022-02-17 15:00:00 70 [in_i] [facility] weight 2022-02-17 15:00:00 208 [lb_av] [facility] temperature 2022-02-17 15:00:00 98.1 [degF] [facility] bmi 2022-02-17 15:00:00 29.84 kg/m2 [facility] blood pressure 2022-02-17 15:00:00 121 mm[Hg] [facility] - systolic [facility] blood pressure 2022-02-17 15:00:00 61 mm[Hg] [facility] - diastolic [facility] height 2022-01-06 14:30:00 70 [in_i] Common S pirit - [facility] weight 2022-01-06 14:30:00 208 [lb_av] Common S pirit - [facility] bmi 2022-01-06 14:30:00 29.84 kg/m2 Common S pirit - [facility] blood pressure 2022-01-06 14:30:00 137 mm[Hg] [facility] - systolic [facility] blood pressure 2022-01-06 14:30:00 79 mm[Hg] Common [facility] - diastolic [facility] height 2021-11-03 09:45:00 70 [in_i] Common S pirit - [facility] weight 2021-11-03 09:45:00 210 [lb_av] [facility] S pirit - [facility] bmi 2021-11-03 09:45:00 30.13 kg/m2 Common S pirit - [facility] blood pressure 2021-11-03 09:45:00 144 mm[Hg] [facility] - systolic [facility] blood pressure 2021-11-03 09:45:00 86 mm[Hg] Common [facility] - diastolic [facility] height 2021-07-28 14:10:00 70 [in_i] Common S pirit - [facility] weight 2021-07-28 14:10:00 211.8 [lb_av] Common [facility] - [facility] temperature 2021-07-28 14:10:00 97.5 [degF] Common S [facility] bmi 2021-07-28 14:10:00 30.39 kg/m2 [facility] S pirit [facility] oximetry 2021-07-28 14:10:00 93 % [facility] respiratory rate 2021-07-28 14:10:00 16 /min Comm on [facility] blood pressure 2021-07-28 14:10:00 134 mm[Hg] [facility] - systolic [facility] blood pressure 2021-07-28 14:10:00 63 mm[Hg] [facility] - diastolic [facility] height 2021-07-28 13:20:00 70 [in_i] Common S pirit [facility] weight 2021-07-28 13:20:00 211.8 [lb_av] Common [facility] - [facility] temperature 2021-07-28 13:20:00 97.5 [degF] Common S pirit [facility] bmi 2021-07-28 13:20:00 30.39 kg/m2 Common S pirit [facility] oximetry 2021-07-28 13:20:00 93 % Common S pirit [facility] respiratory rate 2021-07-28 13:20:00 16 /min Comm on [facility] blood pressure 2021-07-28 13:20:00 134 mm[Hg] [facility] - systolic [facility] blood pressure 2021-07-28 13:20:00 62 mm[Hg] [facility] - diastolic [facility] height 2021-04-28 13:10:00 70 [in_i] Common S pirit [facility] weight 2021-04-28 13:10:00 215.9 [lb_av] Common [facility] temperature 2021-04-28 13:10:00 97.3 [degF] Common S pirit [facility] bmi 2021-04-28 13:10:00 30.98 kg/m2 Common S pirit [facility] oximetry 2021-04-28 13:10:00 95 % Common S pirit [facility] respiratory rate 2021-04-28 13:10:00 17 /min Comm on [facility] blood pressure 2021-04-28 13:10:00 121 mm[Hg] [facility] - systolic [facility] blood pressure 2021-04-28 13:10:00 60 mm[Hg] [facility] - diastolic [facility] height 2021-03-12 09:30:00 70 [in_i] [facility] weight 2021-03-12 09:30:00 211.4 [lb_av] [facility] temperature 2021-03-12 09:30:00 97.7 [degF] [facility] bmi 2021-03-12 09:30:00 30.33 kg/m2 [facility] S [facility] oximetry 2021-03-12 09:30:00 95 % [facility] respiratory rate 2021-03-12 09:30:00 16 /min Comm on [facility] - [facility] blood pressure 2021-03-12 09:30:00 132 mm[Hg] Common [facility] - systolic [facility] blood pressure 2021-03-12 09:30:00 67 mm[Hg] Common [facility] - diastolic [facility] Heart Rate 2022-01-02 21:14:00 [facility] Respitory Rate 2022-01-02 21:14:00 [facility] Systolic (mm Hg) 2022-01-02 21:14:00 [facility] Diastolic (mm Hg) 2022-01-02 21:14:00 [facility] Height 2022-01-02 17:28:00 167.64 cm [facility] BMI Calculated 2022-01-02 17:28:00 [facility] Weight 2022-01-02 17:28:00 [facility] Systolic (mm Hg) 2022-01-02 17:28:00 [facility] Diastolic (mm Hg) 2022-01-02 17:28:00 [facility] Heart Rate 2022-01-02 17:28:00 [facility] Respitory Rate 2022-01-02 17:28:00 [facility] Temperature Oral (F) 2022-01-02 17:28:00 97.5 F [facility] Temperature Oral (F) 2021-12-17 00:00:00 98.0 F [facility] Heart Rate 2021-12-17 00:00:00 [facility] Respitory Rate 2021-12-17 00:00:00 [facility] Systolic (mm Hg) 2021-12-17 00:00:00 [facility] Diastolic (mm Hg) 2021-12-17 00:00:00 [facility] Heart Rate 2021-12-16 21:00:00 [facility] Respitory Rate 2021-12-16 21:00:00 [facility] Systolic (mm Hg) 2021-12-16 21:00:00 [facility] Diastolic (mm Hg) 2021-12-16 21:00:00 [facility] Temperature Oral (F) 2021-12-16 21:00:00 98.0 F [facility] Heart Rate 2021-12-16 20:20:00 [facility] Respitory Rate 2021-12-16 20:20:00 [facility] Systolic (mm Hg) 2021-12-16 20:20:00 [facility] Diastolic (mm Hg) 2021-12-16 20:20:00 [facility] Temperature Oral (F) 2021-12-16 20:20:00 97.3 F [facility] Heart Rate 2021-12-15 08:58:06 [facility] Systolic (mm Hg) 2021-12-15 08:58:01 [facility] Diastolic (mm Hg) 2021-12-15 08:58:01 [facility] Heart Rate 2021-12-15 08:58:01 [facility] Temperature Oral (F) 2021-12-15 08:57:27 98.2 F [facility] Temperature Oral (F) 2021-12-15 05:00:00 97.5 F [facility] Heart Rate 2021-12-15 05:00:00 [facility] Systolic (mm Hg) 2021-12-15 05:00:00 [facility] Diastolic (mm Hg) 2021-12-15 05:00:00 [facility] Height 2021-12-15 03:03:00 177.8 cm [facility] Weight 2021-12-15 03:03:00 [facility] BMI Calculated 2021-12-15 03:03:00 [facility] Temperature Oral (F) 2021-12-15 01:20:46 97.4 F [facility] Systolic (mm Hg) 2021-12-15 01:20:42 [facility] Diastolic (mm Hg) 2021-12-15 01:20:42 [facility] Respitory Rate 2021-12-15 00:45:00 [facility] Height 2021-12-15 00:13:00 172.72 cm [facility] BMI Calculated 2021-12-15 00:13:00 [facility] Weight 2021-12-15 00:13:00 [facility] Respitory Rate 2021-12-14 23:56:00 [facility] Height 2021-12-14 23:34:00 172.72 cm [facility] Weight 2021-12-14 23:34:00 [facility] Respitory Rate 2021-12-14 23:18:00 [facility] BMI Calculated 2021-12-14 19:29:00 [facility] Temperature Oral (F) 2021-12-04 14:04:00 97.9 F [facility] Heart Rate 2021-12-04 14:04:00 [facility] Respitory Rate 2021-12-04 14:04:00 [facility] Systolic (mm Hg) 2021-12-04 14:04:00 [facility] Diastolic (mm Hg) 2021-12-04 14:04:00 [facility] Temperature Oral (F) 2021-12-04 12:30:00 97.9 F [facility] Heart Rate 2021-12-04 12:30:00 [facility] Respitory Rate 2021-12-04 12:30:00 [facility] Systolic (mm Hg) 2021-12-04 12:30:00 [facility] Diastolic (mm Hg) 2021-12-04 12:30:00 [facility] Respitory Rate 2021-12-04 11:45:00 [facility] Heart Rate 2021-12-04 11:45:00 [facility] Temperature Oral (F) 2021-12-04 11:45:00 98.4 F [facility] Systolic (mm Hg) 2021-12-04 04:57:00 [facility] Diastolic (mm Hg) 2021-12-04 04:57:00 [facility] Weight 2021-12-03 23:22:00 [facility] Respitory Rate 2021-11-27 00:01:00 [facility] Heart Rate 2021-11-26 21:50:00 [facility] Respitory Rate 2021-11-26 21:50:00 [facility] Systolic (mm Hg) 2021-11-26 21:50:00 [facility] Diastolic (mm Hg) 2021-11-26 21:50:00 [facility] Temperature Oral (F) 2021-11-26 18:40:00 98.0 F [facility] Heart Rate 2021-11-26 18:40:00 [facility] Respitory Rate 2021-11-26 18:40:00 [facility] Systolic (mm Hg) 2021-11-26 18:40:00 [facility] Diastolic (mm Hg) 2021-11-26 18:40:00 [facility] Heart Rate 2021-11-26 16:41:35 [facility] Systolic (mm Hg) 2021-11-26 16:41:27 [facility] Diastolic (mm Hg) 2021-11-26 16:41:27 [facility] Temperature Oral (F) 2021-11-26 16:40:28 98.4 F [facility] Temperature Oral (F) 2021-11-26 13:00:17 98.3 F [facility] Height 2021-11-25 03:24:00 177.8 cm [facility] BMI Calculated 2021-11-25 03:24:00 [facility] Weight 2021-11-25 03:24:00 [facility] Procedures Procedure Date / Time Performed Performing Clinician Lupe bowie [id number] 2021-10-18 00:00:00 [facility] Encounters Start End Encounter Admission Attending Care Care Encounter Source Date/Time Date/Time Type Type Clinicians Facility Department ID 2022-05-20 Outpatient [facility], [facility] [id number] Common 08:24:01 Count Includes [facility] [id number] [facility] 2022-05-15 Outpatient Fortune, STLMLC STLMLC [id number] Common 08:53:00 Naveed [id number] [facility] 2022-05-11 Outpatient Fortune, STLMLC STLMLC [id number] Common 14:49:00 Naveed [facility] 2022-05-08 Outpatient Fortune, STLMLC STLMLC [id number] Common 10:15:01 Naveed [facility] 2022-05-07 Outpatient Fortune, STLMLC STLMLC [id number] Common 11:53:00 Naveed [facility] 2022-02-18 Outpatient Fortune, STLMLC STLMLC [id number] Common 12:05:01 Naveed [facility] 2022-01-01 Outpatient Fortune, STLMLC STLMLC [id number] Common 10:24:01 Naveed [facility] 2021-12-29 Outpatient [facility], STLMLC STLMLC [id number] Common 08:34:00 Naveed [facility] 2021-12-16 Outpatient [facility] [id number] ME 14:42:21 [id number] [facility] 2021-11-19 Outpatient Fortune, STLMLC STLMLC [id number] Common 08:42:01 Naveed [facility] 2021-11-03 Outpatient [facility], STLMLC STLMLC [id number] Common 10:33:01 Naveed [facility] 2021-10-15 Outpatient 3 [id number] ENCPL REF [id number] [facility] 08:19:25 [facility] 2021-10-14 Outpatient 3 [id number] ENCPL REF [id number] [facility] 11:59:03 [facility]17 [facility] 2021-06-25 Outpatient Fortune, STLMLC STLMLC [id number] Common 14:22:06 Naveed [id number] [facility] 2021-06-25 Outpatient Fortune, STLMLC STLMLC [id number] Common 14:13:51 Naveed [id number] [facility] 2021-06-25 Outpatient Fortune, STLMLC STLMLC [id number] Common 13:38:12 Naveed [id number] [facility] 2021-06-25 Outpatient Fortune, STLMLC STLMLC [id number] Common 12:43:29 Naveed [id number] [facility] 2021-06-25 Outpatient Fortune, STLMLC STLMLC [id number] Common 12:42:27 Naveed [id number] [facility] 2021-06-25 Outpatient Fortune, STLMLC STLMLC [id number] Common 12:31:12 Naveed [id number] [facility] 2021-06-25 Outpatient Fortune, STLMLC STLMLC [id number] Common 12:31:03 Naveed [id number] [facility] 2021-06-25 Outpatient Fortune, STLMLC STLMLC [id number] Common 12:30:21 Naveed [id number] [facility] 2021-06-25 Outpatient Fortune, STLMLC STLMLC [id number] Common 11:00:43 Naveed [id number] [facility] 2022-07-03 2022-07-03 (TEL) STLMLC STLMLC [id number] Co mmon 00:00:00 00:00:00 [facility] 2022-06-08 2022-06-08 (TEL) STLMLC STLMLC [id number] Co mmon 00:00:00 00:00:00 [facility] 2022-05-06 2022-05-06 (TEL) STLMLC STLMLC [id number] Co mmon 00:00:00 00:00:00 [facility] 2022-04-03 2022-04-03 (TEL) STLMLC STLMLC [id number] Co mmon 00:00:00 00:00:00 [facility] 2022-02-17 2022-02-17 (TEL) STLMLC STLMLC [id number] Co mmon 00:00:00 00:00:00 [facility] 2022-02-17 2022-02-17 OFFICE STLMLC STLMLC [id number] Co mmon 00:00:00 00:00:00 VISIT [facility] ESTAB PT - CHI LEVEL 4 [facility] 2022-01-06 2022-01-06 OFFICE STLMLC STLMLC [id number] Co mmon 00:00:00 00:00:00 VISIT [facility] PT - CHI LEVEL 4 [facility] 2022-01-02 2022-01-02 Emergency nullFlavo [facility] [id number] Memoria 17:12:00 21:33:00 r [facility] 03 [facility] 2022-01-02 2022-01-02 Emergency E LONG, MHBL MHBL [id number] MHBL 12:12:00 16:33:00 CAREY 2022-01-02 2022-01-02 Outpatient Abner, MHPL MHPL [id number] 12:12:00 16:33:00 Carey R 03 2022-01-01 2022-01-01 (TEL) STLMLC STLMLC [id number] Co mmon 00:00:00 00:00:00 [facility] 2021-12-31 2021-12-31 (TEL) STLMLC STLMLC [id number] Co mmon 00:00:00 00:00:00 [facility] 2021-12-14 2021-12-17 Inpatient nullFlavo [facility] [id number] Memoria 19:19:49 03:14:00 latrice Celeste 02 [facility] 2021-12-14 2021-12-16 Inpatient E SAJJA, MHBL MED [id number] MHBL 18:26:00 22:14:00 ZACHARY 2021-12-14 2021-12-16 Outpatient Sajja, MHPL MHPL [id number] 14:19:49 22:14:00 Zachary 2021-12-14 2021-12-14 Outpatient Ajibajohnie, MHPL MHPL [id number] 14:19:49 14:19:49 Damon 02 [place] 2021-12-03 2021-12-04 Emergency [facility]Flavo [facility] [id number] Memoria 23:19:26 14:53:00 r [facility] 01 l [facility] 2021-12-03 2021-12-04 Outpatient Fadowole, MHPL MHPL [id number] 18:19:26 09:53:00 Pepper 01 [place] 2021-12-03 2021-12-04 Emergency E FADOWOLE, MHBL MHBL [id number] MHBL 18:19:00 09:53:00 PEPPER 2021-12-01 2021-12-01 Outpatient COH COH PIJFJKR ZIB COH 00:00:00 00:00:00 [id number] 2021-11-25 2021-11-27 [facility] [id number] Memoria 03:23:10 00:12:00 n latrice Celeste 00 l [facility] 2021-11-25 2021-11-26 Outpatient E AJIBADE, MHBL MED [id number] MHBL 10:37:00 19:12:00 DAMON 2021-11-24 2021-11-26 Outpatient Ajibade, MHPL MHPL [id number] 22:23:10 19:12:00 [facility] 2021-11-26 Outpatient Ajibade, MHPL MHPL [id number] 22:23:10 19:12:00 [facility] 2021-11-24 (TEL) STLMLC STLMLC [id number] Co mmon 00:00:00 00:00:00 [facility] 2021-10-16 2021-11-03 Inpatient 3 NATHANIEL, ENCPL GILDA [id number] [facility] 23:26:00 21:40:00 CHILANGO 0519 [facility] 2021-11-03 2021-11-03 OFFICE STLMLC STLMLC [id number] Co mmon 00:00:00 00:00:00 VISIT [facility] Sp[facility] PT LEVEL 4 - [facility] 2021-10-17 2021-10-17 (TEL) STLMLC STLMLC [id number] Co mmon 00:00:00 00:00:00 Spirit [facility] 2021-08-12 2021-08-12 (TEL) STLMLC STLMLC [id number] Co mmon 00:00:00 00:00:00 [facility] 2021-07-28 2021-07-28 OFFICE STLMLC STLMLC [id number] Co mmon 00:00:00 00:00:00 VISIT [facility] ESTAB PT - CHI LEVEL 4 [facility] 2021-07-28 2021-07-28 SUB ANNUAL STLMLC STLMLC [id number] Common 00:00:00 00:00:00 MCR [facility] WELL[facility] - [facility] VISIT [facility] 2021-06-12 2021-06-12 (TEL) STLMLC STLMLC [id number] Co mmon 00:00:00 00:00:00 [facility] 2021-05-21 2021-05-21 (TEL) STLMLC STLMLC [id number] Co mmon 00:00:00 00:00:00 [facility] 2021-04-28 2021-04-28 OFFICE STLMLC STLMLC [id number] Co mmon 00:00:00 00:00:00 VISIT [facility] PT - CHI LEVEL 4 [facility] 2021-03-26 2021-03-26 (TEL) STLMLC STLMLC [id number] Co mmon 00:00:00 00:00:00 [facility] 2021-03-12 2021-03-12 OFFICE STLMLC STLMLC [id number] Co mmon 00:00:00 00:00:00 VISIT [facility] PT - CHI LEVEL 4 [facility] 2021-02-10 2021-02-10 Outpatient STLMLC STLMLC [id number] Common 00:00:00 00:00:00 [facility] 2021-01-31 2021-01-31 Outpatient STLMLC STLMLC [id number] Common 00:00:00 00:00:00 [facility] 2021-01-13 2021-01-13 Outpatient STLMLC STLMLC [id number] Common 00:00:00 00:00:00 [facility] 2021-01-08 2021-01-08 Outpatient STLMLC STLMLC [id number] Common 00:00:00 00:00:00 [facility] 2020-12-31 2020-12-31 Outpatient STLMLC STLMLC [id number] Common 00:00:00 00:00:00 [facility] 2020-12-11 2020-12-11 Outpatient STLMLC STLMLC [id number] Common 00:00:00 00:00:00 [facility] 2020-08-19 2020-08-19 Outpatient STLMLC STLMLC [id number] Common 00:00:00 00:00:00 [facility] 2020-07-19 2020-07-19 Outpatient STLMLC STLMLC [id number] Common 00:00:00 00:00:00 [facility] 2020-07-15 2020-07-15 Outpatient STLMLC STLMLC [id number] Common 00:00:00 00:00:00 [facility] 2020-06-14 2020-06-14 Outpatient STLMLC STLMLC [id number] Common 00:00:00 00:00:00 [facility] 2020-06-05 2020-06-05 Outpatient STLMLC STLMLC [id number] Common 00:00:00 00:00:00 [facility] 2020-04-23 2020-04-23 Outpatient STLMLC STLMLC [id number] Common 00:00:00 00:00:00 [facility] 2020-04-22 2020-04-22 Outpatient STLMLC STLMLC [id number] Common 00:00:00 00:00:00 [facility] 2020-04-17 2020-04-17 Outpatient STLMLC STLMLC [id number] Common 00:00:00 00:00:00 [facility] 2020-01-15 2020-01-15 [facility] [id number] Common 10:45:00 10:45:[address] [facility] 2019-10-16 2019-10-16 [id number] Common 13:00:00 13:00:00 [place] [address] [facility] 2019-07-17 2019-07-17 [facility] [id number] Common 13:45:00 13:45:00 [place] [address] [facility] 2019-06-14 2019-06-14 [facility] [id number] Common 11:45:00 11:45:00 [place] [address] [facility] 2019-06-07 2019-06-07 [facility] [id number] Common 11:57:00 11:57:00 [place] [address] [facility] 2019-05-17 2019-05-17 [facility] [id number] Common 11:30:00 11:30:00 [place] [address] [facility] 2019-04-24 2019-04-24 [facility] [id number] Common 14:52:00 14:52:00 [place] [address] [facility] 2019-04-19 2019-04-19 [facility] [id number] Common 14:45:00 14:45:00 [place] [address] [facility] 2019-04-06 2019-04-06 [facility] [id number] Common 08:35:00 08:35:00 [place] [address] [facility] 2019-04-04 2019-04-04 [facility] [id number] Common 08:34:00 08:34:00 [place] [address] [facility] 2019-03-08 2019-03-08 [facility] [id number] Common 10:57:00 10:57:00 [place] [address] [facility] 2019-02-20 2019-02-20 [facility] [id number] Common 14:00:00 14:00:00 [place] [address] [facility] Results Test Description Test Time Test Comments Results Result Comments Source BLOOD BANK RESULTS 2022-01-02 18:35:00 Test Item Value Reference Range Interpretation Comme nts Antibody Scrn (test code = Antibody Scrn) Negative (01/02/22 1:35 PM) [facility] [id number] 18:35:00 Test Item Value Reference Range Interpretation Comments ABO/Rh (test code = ABO/Rh) AB POS [facility] VinspiCARDIAC [id number] 18:13:00 Test Item Value Reference Range Interpretation Comments HS Troponin I (test code = HS Troponin 156 I) [facility] Fil[place] [id number] 18:13:00 Test Item Value Reference Range Interpretation Comments Glucose Lvl (test code = Glucose Lvl) 237 70-99 [facility] [place] [id number] 18:13:00 Test Item Value Reference Range Interpretation Comments BUN (test code = BUN) 46 7-22 [facility] [place] [id number] 18:13:00 Test Item Value Reference Range Interpretation Comments Creatinine Lvl (test code = Creatinine 5.92 0.50-1.40 Lvl) [facility] [id number] 18:13:00 Test Item Value Reference Range Interpretation Comments Sodium Lvl (test code = Sodium Lvl) 134 135-145 [facility] [place] [id number] 18:13:00 Test Item Value Reference Range Interpretation Comments Potassium Lvl (test code = Potassium 4.4 3.5-5.1 Lvl) [facility] [id number] 18:13:00 Test Item Value Reference Range Interpretation Comments Chloride Lvl (test code = Chloride Lvl) 98 95-109 [facility] [id number] 18:13:00 Test Item Value Reference Range Interpretation Comments CO2 (test code = CO2) 29 24-32 [facility] [place] [id number] 18:13:00 Test Item Value Reference Range Interpretation Comments Calcium Lvl (test code = Calcium Lvl) 9.2 8.5-10.5 [facility] [place] [id number] 18:13:00 Test Item Value Reference Range Interpretation Comments Total Protein (test code = Total 6.6 6.4-8.4 Protein) [place] [address]-08-05 18:13:00 Test Item Value Reference Range Interpretation Comments Albumin Lvl (test code = Albumin Lvl) 3.1 3.5-5.[address]08-05 18:13:00 Test Item Value Reference Range Interpretation Comments ALT (test code = ALT) 36 See_Comment [Auto mated message] The system which ge nerated this result transmit swathi reference range : <=65. The reference range was not used to interpr et this result as deny l/abnormal. [address]08-05 18:13:00 Test Item Value Reference Range Interpretation Comments AST (test code = AST) 28 See_Comment [Auto mated message] The system which ge nerated this result transmit swathi reference range : <=37. The reference range was not used to interpr et this result as deny l/abnormal. [address]08-05 18:13:00 Test Item Value Reference Range Interpretation Comments Alk Phos (test code = Alk Phos) 231 39-136 [place] [address]-08-05 18:13:00 Test Item Value Reference Range Interpretation Comments Bili Total (test code = Bili Total) 1.0 0.2-1.[address]08-05 18:13:00 Test Item Value Reference Range Interpretation Comments AGAP (test code = AGAP) 11.4 10.0-20.[address]08-05 18:13:00 Test Item Value Reference Range Interpretation Comments B/C Ratio (test code = B/C Ratio) 8 1 6-[address]08-05 18:13:00 Test Item Value Reference Range Interpretation Comments Globulin (test code = Globulin) 3.5 2.7-4.[address]08-05 18:13:00 Test Item Value Reference Range Interpretation Comments A/G Ratio (test code = A/G Ratio) 0.9 1 0.7-1.[address]08-05 18:13:00 Test Item Value Reference Range Interpretation Comments eGFR (test code = eGFR) 9 [place] 244712-08-05 18:13:00 Test Item Value Reference Range Interpretation Comments WBC (test code = WBC) 4.8 3.7-10.4 [id number] 18:13:00 Test Item Value Reference Range Interpretation Comments RBC (test code = RBC) 1.93 4.70-6.10 [facility] CenterCfvtnnqETGOBMRITV8580-44-66 18:13:00 Test Item Value Reference Range Interpretation Comments Hgb (test code = Hgb) 7.2 14.0-18.0 [facility] CenterBeobxktUFWYPGSRSR0385-38-20 18:13:00 Test Item Value Reference Range Interpretation Comments Hct (test code = Hct) 21.2 42.0-54.0 [facility] CenterVuzfumiPKUWHDODHQ0724-60-08 18:13:00 Test Item Value Reference Range Interpretation Comments MCV (test code = MCV) 110.1 80.0-94.0 [facility] CenterXhtecbkFIJKFIMSFR2617-27-17 18:13:00 Test Item Value Reference Range Interpretation Comments MCH (test code = MCH) 37.1 pg 27.0-31.0 [facility] CenterHvsutgpXBYITSSFOG9499-46-87 18:13:00 Test Item Value Reference Range Interpretation Comments MCHC (test code = MCHC) 33.7 32.0-36.0 [facility] CenterUnqilwyFCPJNGSICO0508-73-40 18:13:00 Test Item Value Reference Range Interpretation Comments RDW (test code = RDW) 25.8 11.5-14.5 [facility] CenterKrnneyzEOVGXLXGKM4189-99-61 18:13:00 Test Item Value Reference Range Interpretation Comments Platelet (test code = Platelet) 216 133-450 [facility] CenterSvopksvKIPNFGHRYV6161-51-41 18:13:00 Test Item Value Reference Range Interpretation Comments MPV (test code = MPV) 8.2 7.4-10.4 [facility] CenterTyeprcgVJEVIDWPOF6329-12-20 18:13:00 Test Item Value Reference Range Interpretation Comments PT (test code = PT) 16.9 s 12.0-14.7 [facility] CenterLwxyuxoJYVWJBUUQI5691-14-86 18:13:00 Test Item Value Reference Range Interpretation Comments INR (test code = INR) 1.39 1 0.85-1.17 [facility] CenterHmzbuaqQSEJBCJLEI5607-29-31 18:13:00 Test Item Value Reference Range Interpretation Comments PTT (test code = PTT) 35.0 s 22.9-35.8 [place] 244712-08-05 18:13:00 Test Item Value Reference Range Interpretation Comments Plt Morph (test code = Normal (01/02/22 1:13 PM) Plt Morph) [place] [address]-08-05 18:13:00 Test Item Value Reference Range Interpretation Comments Segs (test code = Segs) 76.4 45.0-75.0 [place] 244712-08-05 18:13:00 Test Item Value Reference Range Interpretation Comments Lymphocytes (test code = Lymphocytes) 14.6 20.0-40.0 [place] [address]-08-05 18:13:00 Test Item Value Reference Range Interpretation Comments Monocytes (test code = Monocytes) 7.5 2.0-12.0 [place] 244712-08-05 18:13:00 Test Item Value Reference Range Interpretation Comments Eosinophils (test code = 0.6 See_Comment [A utomated message] The Eosinophils) system which ge nerated this result tra nsmitted reference range : <=4.0. The reference r samantha was not used to int erpret this result as normal/abnormal . [facility] CenterOektwlxBKJROZCTFM3153-29-84 18:13:00 Test Item Value Reference Range Interpretation Comments Basophils (test code = 0.9 See_Comment [Aut omated message] The Basophils) system which ge nerated this result tra nsmitted reference range : <=1.0. The reference r samantha was not used to int erpret this result as normal/abnormal . [facility] CenterOwcjbsaGCPFPIRLUG1144-07-04 18:13:00 Test Item Value Reference Range Interpretation Comments Neutrophils # (test code = Neutrophils 3.7 1.5-8.1 #) [place] 244712-08-05 18:13:00 Test Item Value Reference Range Interpretation Comments Lymphocytes # (test code = Lymphocytes 0.7 1.0-5.5 #) [place] [address]-08-05 18:13:00 Test Item Value Reference Range Interpretation Comments Monocytes # (test code 0.4 See_Comment [Aut omated message] The = Monocytes #) system which generated this result tra nsmitted reference range : <=0.8. The reference r samantha was not used to int erpret this result as normal/abnormal . [place] 244712-08-05 18:13:00 Test Item Value Reference Range Interpretation Comments Anisocyte (test code = 2+ *ABN*(01/02/22 1:13 Anisocyte) PM) [place] 244712-08-05 18:13:00 Test Item Value Reference Range Interpretation Comments Macrocyte (test code = 2+ *ABN*(01/02/22 1:13 Macrocyte) PM) [facility] CenterDbjutvmTROPSFOQPY8578-36-84 09:29:00 Test Item Value Reference Range Interpretation Comments MCHC (test code = MCHC) 33.4 32.0-36.0 [place] 244712-07-19 09:29:00 Test Item Value Reference Range Interpretation Comments RDW (test code = RDW) 24.3 11.5-14.5 [facility] CenterDwcrqejNKQOBEADLG8859-21-33 09:29:00 Test Item Value Reference Range Interpretation Comments Platelet (test code = Platelet) 148 133-450 [facility] CenterNpgmjnzTFPHAWNFDL5749-02-02 09:29:00 Test Item Value Reference Range Interpretation Comments MPV (test code = MPV) 8.1 7.4-10.4 [place] 244712-07-19 09:29:00 Test Item Value Reference Range Interpretation Comments D-Dimer (test code = D-Dimer) 3.63 [facility] CenterDsgrwxpDPILCMGUAQ7368-18-43 09:29:00 Test Item Value Reference Range Interpretation Comments Segs (test code = Segs) 74.8 45.0-75.0 [facility] CenterLeunpsiQCTJRNEBZT4408-71-21 09:29:00 Test Item Value Reference Range Interpretation Comments Lymphocytes (test code = Lymphocytes) 15.5 20.0-40.0 [place] 244712-07-19 09:29:00 Test Item Value Reference Range Interpretation Comments Monocytes (test code = Monocytes) 9.5 2.0-12.0 [place] [address]-07-19 09:29:00 Test Item Value Reference Range Interpretation Comments Basophils (test code = 0.2 See_Comment [Aut omated message] The Basophils) system which ge nerated this result tra nsmitted reference range : <=1.0. The reference r samantha was not used to int erpret this result as normal/abnormal . [facility] CenterJjrjwddXNMPCASWOC1590-83-35 09:29:00 Test Item Value Reference Range Interpretation Comments Neutrophils # (test code = Neutrophils 3.5 1.5-8.1 #) [place] 244712-07-19 09:29:00 Test Item Value Reference Range Interpretation Comments Lymphocytes # (test code = Lymphocytes 0.7 1.0-5.5 #) [place] 244712-07-19 09:29:00 Test Item Value Reference Range Interpretation Comments Monocytes # (test code 0.4 See_Comment [Aut omated message] The = Monocytes #) system which generated this result tra nsmitted reference range : <=0.8. The reference r samantha was not used to int erpret this result as normal/abnormal . [place] 244712-07-19 09:29:00 Test Item Value Reference Range Interpretation Comments Macrocyte (test code = 1+ *ABN*(12/16/21 Macrocyte) 4:29 AM) [place] 084472-07-19 09:29:00 Test Item Value Reference Range Interpretation Comments C-REACTIVE PROTEIN (test code = 19.0 C-REACTIVE PROTEIN) [place] 141042-07-19 09:29:00 Test Item Value Reference Range Interpretation Comments Glucose Lvl (test code = Glucose Lvl) 199 70-99 [place] 141042-07-19 09:29:00 Test Item Value Reference Range Interpretation Comments BUN (test code = BUN) 28 7-22 [place] 141042-07-19 09:29:00 Test Item Value Reference Range Interpretation Comments Creatinine Lvl (test code = Creatinine 4.84 0.50-1.40 Lvl) [place] 141042-07-19 09:29:00 Test Item Value Reference Range Interpretation Comments Sodium Lvl (test code = Sodium Lvl) 134 135-145 [place] 141042-07-19 09:29:00 Test Item Value Reference Range Interpretation Comments Potassium Lvl (test code = Potassium 4.3 3.5-5.1 Lvl) [place] 141042-07-19 09:29:00 Test Item Value Reference Range Interpretation Comments Chloride Lvl (test code = Chloride Lvl) 100 95-109 [place] 141042-07-19 09:29:00 Test Item Value Reference Range Interpretation Comments CO2 (test code = CO2) 28 24-32 [facility] [id number] 09:29:00 Test Item Value Reference Range Interpretation Comments Calcium Lvl (test code = Calcium Lvl) 9.4 8.5-10.5 [facility] Unmanned SystemsCRITICAL ACCESS HOSPITALOJRRZ9567-57-78 09:29:00 Test Item Value Reference Range Interpretation Comments Total Protein (test code = Total 6.6 6.4-8.4 Protein) [facility]2022-07-19 09:29:00 Test Item Value Reference Range Interpretation Comments Albumin Lvl (test code = Albumin Lvl) 3.0 3.5-5.0 [facility] [id number] 09:29:00 Test Item Value Reference Range Interpretation Comments ALT (test code = ALT) 92 See_Comment [Auto mated message] The system which ge nerated this result transmit swathi reference range : <=65. The reference range was not used to interpr et this result as deny l/abnormal. [facility] [id number] 09:29:00 Test Item Value Reference Range Interpretation Comments AST (test code = AST) 123 See_Comment [Auto mated message] The system which ge nerated this result transmit swathi reference range : <=37. The reference range was not used to interpr et this result as deny l/abnormal. [facility] [id number] 09:29:00 Test Item Value Reference Range Interpretation Comments Alk Phos (test code = Alk Phos) 272 39-136 [facility] [id number] 09:29:00 Test Item Value Reference Range Interpretation Comments Bili Total (test code = Bili Total) 0.9 0.2-1.3 [facility] [id number] 09:29:00 Test Item Value Reference Range Interpretation Comments AGAP (test code = AGAP) 10.3 10.0-20.0 [facility] [id number] 09:29:00 Test Item Value Reference Range Interpretation Comments B/C Ratio (test code = B/C Ratio) 6 1 6-25 [facility] [id number] 09:29:00 Test Item Value Reference Range Interpretation Comments Globulin (test code = Globulin) 3.6 2.7-4.2 [facility]annCHE[facility] [id number] 09:29:00 Test Item Value Reference Range Interpretation Comments A/G Ratio (test code = A/G Ratio) 0.8 1 0.7-1.6 [facility] [id number] 09:29:00 Test Item Value Reference Range Interpretation Comments eGFR (test code = eGFR) 12 [facility]CHE[facility] [id number] 09:29:00 Test Item Value Reference Range Interpretation Comments Phosphorus (test code = Phosphorus) 4.3 2.5-4.5 [facility]viewZmkksqeCMFQDDUTQZ7036-69-92 09:29:00 Test Item Value Reference Range Interpretation Comments WBC (test code = WBC) 4.7 3.7-10.4 [facility] HospitalJhilmktEKETWXVFWI8717-93-07 09:29:00 Test Item Value Reference Range Interpretation Comments RBC (test code = RBC) 2.14 4.70-6.10 [facility] HospitalGzesbtqZPIUZMMUVO5804-76-18 09:29:00 Test Item Value Reference Range Interpretation Comments Hgb (test code = Hgb) 7.6 14.0-18.0 [facility] HospitalZjjdassWIXPHBQSUD8396-73-23 09:29:00 Test Item Value Reference Range Interpretation Comments Hct (test code = Hct) 22.8 42.0-54.0 [facility] HospitalIpmsttuHDGVXPQYBK6030-59-56 09:29:00 Test Item Value Reference Range Interpretation Comments MCV (test code = MCV) 106.6 80.0-94.0 [facility] HospitalSwrhaffXYDWXFBSJC7939-31-09 09:29:00 Test Item Value Reference Range Interpretation Comments MCH (test code = MCH) 35.6 pg 27.0-31.0 [facility] HospitalIqnzohsZMLAJIQSZH0994-21-99 02:28:00 Test Item Value Reference Range Interpretation Comments Hep Bs Ag (test code Negative *NA*(12/15/21 = Hep Bs Ag) 9:28 PM) [facility] HospitalGram Stain [id number] 17:16:00 Test Item Value Reference Range Interpretation Comments Gram Stain Report Gram Stain Performed By: (test code = Gram [facility] Stain Report) [facility] Respiratory w/Gram [id number] 17:16:00 Test Item Value Reference Range Interpretation Comments Culture: Respiratory Moderate Yeast Normal w/Gram Stain (test code Respiratory Lyndsay = Culture: Respiratory Isolated w/Gram Stain) [place] 141042-07-18 09:04:00 Test Item Value Reference Range Interpretation Comments Glucose Lvl (test code = Glucose Lvl) 59 70-99 [place] 141042-07-18 09:04:00 Test Item Value Reference Range Interpretation Comments BUN (test code = BUN) 41 7-22 [place] 141042-07-18 09:04:00 Test Item Value Reference Range Interpretation Comments Creatinine Lvl (test code = Creatinine 7.00 0.50-1.40 Lvl) [place] 141042-07-18 09:04:00 Test Item Value Reference Range Interpretation Comments Sodium Lvl (test code = Sodium Lvl) 134 135-145 [place] 141042-07-18 09:04:00 Test Item Value Reference Range Interpretation Comments Potassium Lvl (test code = Potassium 4.0 3.5-5.1 Lvl) [place] 141042-07-18 09:04:00 Test Item Value Reference Range Interpretation Comments Chloride Lvl (test code = Chloride Lvl) 102 95-109 [place] 141042-07-18 09:04:00 Test Item Value Reference Range Interpretation Comments CO2 (test code = CO2) 25 24-32 [place] 141042-07-18 09:04:00 Test Item Value Reference Range Interpretation Comments Calcium Lvl (test code = Calcium Lvl) 9.1 8.5-10.5 [place] 141042-07-18 09:04:00 Test Item Value Reference Range Interpretation Comments Total Protein (test code = Total 6.2 6.4-8.4 Protein) [place] 141042-07-18 09:04:00 Test Item Value Reference Range Interpretation Comments Albumin Lvl (test code = Albumin Lvl) 2.8 3.5-5.0 [place] 141042-07-18 09:04:00 Test Item Value Reference Range Interpretation Comments ALT (test code = ALT) 78 See_Comment [Auto mated message] The system which ge nerated this result transmit swathi reference range : <=65. The reference range was not used to interpr et this result as deny l/abnormal. [place] 141042-07-18 09:04:00 Test Item Value Reference Range Interpretation Comments AST (test code = AST) 117 See_Comment [Auto mated message] The system which ge nerated this result transmit swathi reference range : <=37. The reference range was not used to interpr et this result as deny l/abnormal. [facility] HospitalSmashrun [id number] 09:04:00 Test Item Value Reference Range Interpretation Comments Alk Phos (test code = Alk Phos) 251 39-136 [facility] [id number] 09:04:00 Test Item Value Reference Range Interpretation Comments Bili Total (test code = Bili Total) 0.9 0.2-1.3 [facility] [id number] 09:04:00 Test Item Value Reference Range Interpretation Comments AGAP (test code = AGAP) 11.0 10.0-20.0 [facility] [id number] 09:04:00 Test Item Value Reference Range Interpretation Comments B/C Ratio (test code = B/C Ratio) 6 1 6-25 [facility] [id number] 09:04:00 Test Item Value Reference Range Interpretation Comments Globulin (test code = Globulin) 3.4 2.7-4.2 [facility] [id number] 09:04:00 Test Item Value Reference Range Interpretation Comments A/G Ratio (test code = A/G Ratio) 0.8 1 0.7-1.6 [facility] HospitalSmash[facility] [id number] 09:04:00 Test Item Value Reference Range Interpretation Comments eGFR (test code = eGFR) 8 [facility] HospitalNkddezcELMWFDZFNH7162-06-60 09:04:00 Test Item Value Reference Range Interpretation Comments D-Dimer (test code = D-Dimer) 3.03 [facility] HospitalJbulmbzREKVXEIBGR5340-88-46 09:04:00 Test Item Value Reference Range Interpretation Comments WBC (test code = WBC) 3.6 3.7-10.4 [place] 244712-07-18 09:04:00 Test Item Value Reference Range Interpretation Comments RBC (test code = RBC) 2.07 4.70-6.10 [place] 244712-07-18 09:04:00 Test Item Value Reference Range Interpretation Comments Hgb (test code = Hgb) 7.5 14.0-18.0 [place] 244712-07-18 09:04:00 Test Item Value Reference Range Interpretation Comments Hct (test code = Hct) 22.0 42.0-54.0 [place] 244712-07-18 09:04:00 Test Item Value Reference Range Interpretation Comments MCV (test code = MCV) 106.3 80.0-94.0 [place] 244712-07-18 09:04:00 Test Item Value Reference Range Interpretation Comments MCH (test code = MCH) 36.1 pg 27.0-31.0 [place] 244712-07-18 09:04:00 Test Item Value Reference Range Interpretation Comments MCHC (test code = MCHC) 33.9 32.0-36.0 [place] 244712-07-18 09:04:00 Test Item Value Reference Range Interpretation Comments RDW (test code = RDW) 23.9 11.5-14.5 [place] 244712-07-18 09:04:00 Test Item Value Reference Range Interpretation Comments Platelet (test code = Platelet) 133 133-450 [facility] CenterQbovrhpAXMWWWAAUN7580-82-71 09:04:00 Test Item Value Reference Range Interpretation Comments MPV (test code = MPV) 8.1 7.4-10.4 [place] [address]-07-18 09:04:00 Test Item Value Reference Range Interpretation Comments Segs (test code = Segs) 60.8 45.0-75.0 [place] 244712-07-18 09:04:00 Test Item Value Reference Range Interpretation Comments Lymphocytes (test code = Lymphocytes) 22.3 20.0-40.0 [place] 244712-07-18 09:04:00 Test Item Value Reference Range Interpretation Comments Monocytes (test code = Monocytes) 13.9 2.0-12.0 [place] [address]-07-18 09:04:00 Test Item Value Reference Range Interpretation Comments Eosinophils (test code = 2.6 See_Comment [A utomated message] The Eosinophils) system which ge nerated this result tra nsmitted reference range : <=4.0. The reference r samantha was not used to int erpret this result as normal/abnormal . [place] 244712-07-18 09:04:00 Test Item Value Reference Range Interpretation Comments Basophils (test code = 0.4 See_Comment [Aut omated message] The Basophils) system which ge nerated this result tra nsmitted reference range : <=1.0. The reference r samantha was not used to int erpret this result as normal/abnormal . [facility]FP[facility]DQSV7536-39-16 09:04:00 Test Item Value Reference Range Interpretation Comments Neutrophils # (test code = Neutrophils 2.2 1.5-8.1 #) [facility] JacksonYdhjicvUXEPCZFTBK2701-65-53 09:04:00 Test Item Value Reference Range Interpretation Comments Lymphocytes # (test code = Lymphocytes 0.8 1.0-5.5 #) [facility] JacksonAzqejblLCPTVWRRQJ1725-48-30 09:04:00 Test Item Value Reference Range Interpretation Comments Monocytes # (test code 0.5 See_Comment [Aut omated message] The = Monocytes #) system which generated this result tra nsmitted reference range : <=0.8. The reference r samantha was not used to int erpret this result as normal/abnormal . [facility] JacksonKnpsxlqYGBVFCGKDZ5353-58-48 09:04:00 Test Item Value Reference Range Interpretation Comments Eosinophils # (test code 0.1 See_Comment [A utomated message] The = Eosinophils #) system whic h generated this result tra nsmitted reference range : <=0.5. The reference r samantha was not used to int erpret this result as normal/abnormal . [facility]hl[facility]hrPPHFEOFDVN0500[facility]-82 09:04:00 Test Item Value Reference Range Interpretation Comments Macrocyte (test code = 1+ *ABN*(12/15/21 Macrocyte) 4:04 AM) [facility]XbkzmtkHVMQRGJCUL1658-65-82 09:04:00 Test Item Value Reference Range Interpretation Comments C-REACTIVE PROTEIN (test code = 25.1 C-REACTIVE PROTEIN) [facility] HospitalKjwkniwOGIMCOXXIK3012-81-38 09:04:00 Test Item Value Reference Range Interpretation Comments Vanco Lvl (test code = Vanco Lvl) 15.2 [facility] HospitalBACT[facility] - [id number] 00:29:00 Test Item Value Reference Range Interpretation Comments MRSA by PCR (test Negative (12/14/21 7:29 code = MRSA by PCR) PM) [facility] [id number] 23:56:00 Test Item Value Reference Range Interpretation Comments Source Respiratory Nasophrngl Swb Panel PCR (test code = *NA*(12/14/21 6:56 PM) Source Respiratory Panel PCR) [facility] [id number] 23:56:00 Test Item Value Reference Range Interpretation Comments Influenza A PCR (test Negative (12/14/21 6:56 code = Influenza A PCR) PM) [facility] [id number] 23:56:00 Test Item Value Reference Range Interpretation Comments Influenza B PCR (test Negative (12/14/21 6:56 code = Influenza B PCR) PM) [facility] HRNPPECKSI9194-12-57 23:56:00 Test Item Value Reference Range Interpretation Comments RSV PCR (test code = Negative (12/14/21 6:56 RSV PCR) PM) [facility]viewPicolightAC [id number] 23:55:00 Test Item Value Reference Range Interpretation Comments BNP (test code = BNP) 1994 [facility] [id number] 23:55:00 Test Item Value Reference Range Interpretation Comments Procalcitonin Lvl (test 0.80 See_Comment [Au tomated message] code = Procalcitonin Lvl) Th e system which generated this result transmitted ref erence range: <=0.10. The reference range was not used to interpr et this result as normal/abnormal . [facility] [id number] 21:26:00 Test Item Value Reference Range Interpretation Comments HS Troponin I 1 Hr (test code = HS 389 Troponin I 1 Hr) [facility] [id number] 21:26:00 Test Item Value Reference Range Interpretation Comments HS Troponin I 0 to 1 Hour Delta (test 49 1 code = HS Troponin I 0 to 1 Hour Delta) [facility] [id number] 20:10:00 Test Item Value Reference Range Interpretation Comments HS Troponin I Baseline (test code = HS 340 Troponin I Baseline) [facility] [id number] 20:10:00 Test Item Value Reference Range Interpretation Comments Glucose Lvl (test code = Glucose Lvl) 60 70-99 [facility] [id number] 20:10:00 Test Item Value Reference Range Interpretation Comments BUN (test code = BUN) 35 7-22 [place] 141042-07-17 20:10:00 Test Item Value Reference Range Interpretation Comments Creatinine Lvl (test code = Creatinine 6.10 0.50-1.40 Lvl) [place] 141042-07-17 20:10:00 Test Item Value Reference Range Interpretation Comments Sodium Lvl (test code = Sodium Lvl) 139 135-145 [place] 141042-07-17 20:10:00 Test Item Value Reference Range Interpretation Comments Potassium Lvl (test code = Potassium 3.1 3.5-5.1 Lvl) [place] [address]-07-17 20:10:00 Test Item Value Reference Range Interpretation Comments Chloride Lvl (test code = Chloride Lvl) 105 95-109 [place] 141042-07-17 20:10:00 Test Item Value Reference Range Interpretation Comments CO2 (test code = CO2) 28 24-32 [place] 141042-07-17 20:10:00 Test Item Value Reference Range Interpretation Comments Calcium Lvl (test code = Calcium Lvl) 8.1 8.5-10.5 [place] 141042-07-17 20:10:00 Test Item Value Reference Range Interpretation Comments Total Protein (test code = Total 5.8 6.4-8.4 Protein) [place] 141042-07-17 20:10:00 Test Item Value Reference Range Interpretation Comments Albumin Lvl (test code = Albumin Lvl) 2.6 3.5-5.0 [place] [address]-07-17 20:10:00 Test Item Value Reference Range Interpretation Comments ALT (test code = ALT) 74 See_Comment [Auto mated message] The system which ge nerated this result transmit swathi reference range : <=65. The reference range was not used to interpr et this result as deny l/abnormal. [place] [address]-07-17 20:10:00 Test Item Value Reference Range Interpretation Comments AST (test code = AST) 117 See_Comment [Auto mated message] The system which ge nerated this result transmit swathi reference range : <=37. The reference range was not used to interpr et this result as deny l/abnormal. [place] 141042-07-17 20:10:00 Test Item Value Reference Range Interpretation Comments Alk Phos (test code = Alk Phos) 241 39-136 [place] 141042-07-17 20:10:00 Test Item Value Reference Range Interpretation Comments Bili Total (test code = Bili Total) 0.8 0.2-1.3 [place] 141042-07-17 20:10:00 Test Item Value Reference Range Interpretation Comments AGAP (test code = AGAP) 9.1 10.0-20.0 [place] 141042-07-17 20:10:00 Test Item Value Reference Range Interpretation Comments B/C Ratio (test code = B/C Ratio) 6 1 6-25 [place] 141042-07-17 20:10:00 Test Item Value Reference Range Interpretation Comments Globulin (test code = Globulin) 3.2 2.7-4.2 [place] 141042-07-17 20:10:00 Test Item Value Reference Range Interpretation Comments A/G Ratio (test code = A/G Ratio) 0.8 1 0.7-1.6 [place] 141042-07-17 20:10:00 Test Item Value Reference Range Interpretation Comments eGFR (test code = eGFR) 9 [facility] CenterRtmccgzCANIENANNZ7062-81-12 20:10:00 Test Item Value Reference Range Interpretation Comments WBC (test code = WBC) 4.3 3.7-10.4 [place] 244712-07-17 20:10:00 Test Item Value Reference Range Interpretation Comments RBC (test code = RBC) 2.17 4.70-6.10 [place] 244712-07-17 20:10:00 Test Item Value Reference Range Interpretation Comments Hgb (test code = Hgb) 7.7 14.0-18.0 [place] [address]-07-17 20:10:00 Test Item Value Reference Range Interpretation Comments Hct (test code = Hct) 22.9 42.0-54.0 [place] [address]-07-17 20:10:00 Test Item Value Reference Range Interpretation Comments MCV (test code = MCV) 105.9 80.0-94.0 [place] [address]-07-17 20:10:00 Test Item Value Reference Range Interpretation Comments MCH (test code = MCH) 35.4 pg 27.0-31.0 [facility] CenterEovldevADGBBIIUUT5882-24-11 20:10:00 Test Item Value Reference Range Interpretation Comments MCHC (test code = MCHC) 33.4 32.0-36.0 [place] 244712-07-17 20:10:00 Test Item Value Reference Range Interpretation Comments RDW (test code = RDW) 23.6 11.5-14.5 [facility] CenterOemfziwIFEDCJRZSX9346-37-86 20:10:00 Test Item Value Reference Range Interpretation Comments Platelet (test code = Platelet) 146 133-450 [facility] CenterCosgiayVIDYKGTUWN7670-29-66 20:10:00 Test Item Value Reference Range Interpretation Comments MPV (test code = MPV) 8.0 7.4-10.4 [place] 244712-07-17 20:10:00 Test Item Value Reference Range Interpretation Comments Plt Morph (test code = Normal (12/14/21 3:10 Plt Morph) PM) [facility] CenterYicjavwEJUUBDCXPC4347-52-82 20:10:00 Test Item Value Reference Range Interpretation Comments Segs (test code = Segs) 67.4 45.0-75.0 [place] 244712-07-17 20:10:00 Test Item Value Reference Range Interpretation Comments Lymphocytes (test code = Lymphocytes) 12.8 20.0-40.0 [place] 244712-07-17 20:10:00 Test Item Value Reference Range Interpretation Comments Monocytes (test code = Monocytes) 15.1 2.0-12.0 [place] 244712-07-17 20:10:00 Test Item Value Reference Range Interpretation Comments Eosinophils (test code = 4.1 See_Comment [A utomated message] The Eosinophils) system which ge nerated this result tra nsmitted reference range : <=4.0. The reference r samantha was not used to int erpret this result as normal/abnormal . [place] 244712-07-17 20:10:00 Test Item Value Reference Range Interpretation Comments Basophils (test code = 0.6 See_Comment [Aut omated message] The Basophils) system which ge nerated this result tra nsmitted reference range : <=1.0. The reference r samantha was not used to int erpret this result as normal/abnormal . [facility] CenterQirhmojKCCUFGRIWF6983-09-22 20:10:00 Test Item Value Reference Range Interpretation Comments Neutrophils # (test code = Neutrophils 2.9 1.5-8.1 #) [facility] CenterAtdfbhiJPTJDFKNLW7858-02-89 20:10:00 Test Item Value Reference Range Interpretation Comments Lymphocytes # (test code = Lymphocytes 0.5 1.0-5.5 #) [facility] CenterHlsxkkuGJIKYKTNZU1571-61-75 20:10:00 Test Item Value Reference Range Interpretation Comments Monocytes # (test code 0.6 See_Comment [Aut omated message] The = Monocytes #) system which generated this result tra nsmitted reference range : <=0.8. The reference r samantha was not used to int erpret this result as normal/abnormal . [facility] CenterSukarnhDYRSXQOUBY6650-57-65 20:10:00 Test Item Value Reference Range Interpretation Comments Eosinophils # (test code 0.2 See_Comment [A utomated message] The = Eosinophils #) system whic h generated this result tra nsmitted reference range : <=0.5. The reference r samantha was not used to int erpret this result as normal/abnormal . [facility] CenterPnnlhbtCZUQZZNXMY9155-56-45 20:10:00 Test Item Value Reference Range Interpretation Comments Anisocyte (test code = 1+ *ABN*(12/14/21 Anisocyte) 3:10 PM) [facility] CenterKrlbdlgLNYUWOXQZM3725-51-87 20:10:00 Test Item Value Reference Range Interpretation Comments Macrocyte (test code = 1+ *ABN*(12/14/21 Macrocyte) 3:10 PM) [facility] HospitalCthhmctXRUETDZGUE5955-15-20 20:10:00 Test Item Value Reference Range Interpretation Comments Coronavirus (COVID-19) Detected MANUEL (test code = 4*ABN*(12/14/21 3:10 Coronavirus (COVID-19) PM) MANUEL) [facility] HospitalURINE AND [id number] 01:43:00 Test Item Value Reference Range Interpretation Comments Occult Bld Stl (test Negative (12/03/21 8:43 code = Occult Bld Stl) PM) [facility] [id number] 01:29:00 Test Item Value Reference Range Interpretation Comments RBC product (test code Product available = RBC product) 2(12/03/21 8:29 PM) [facility] [id number] 00:36:00 Test Item Value Reference Range Interpretation Comments ABO/Rh (test code = ABO/Rh) AB POS [facility] PYJJUYB7571-63-29 00:36:00 Test Item Value Reference Range Interpretation Comments Antibody Scrn (test Negative (12/03/21 7:36 code = Antibody Scrn) PM) [facility] HospitalSmash[facility] [id number] 00:36:00 Test Item Value Reference Range Interpretation Comments Glucose Lvl (test code = Glucose Lvl) 143 70-99 [facility] [id number] 00:36:00 Test Item Value Reference Range Interpretation Comments BUN (test code = BUN) 39 7-22 [facility] [id number] 00:36:00 Test Item Value Reference Range Interpretation Comments Creatinine Lvl (test code = Creatinine 5.46 0.50-1.40 Lvl) [facility] [id number] 00:36:00 Test Item Value Reference Range Interpretation Comments Sodium Lvl (test code = Sodium Lvl) 136 135-145 [facility] [id number] 00:36:00 Test Item Value Reference Range Interpretation Comments Potassium Lvl (test code = Potassium 4.2 3.5-5.1 Lvl) [facility] [id number] 00:36:00 Test Item Value Reference Range Interpretation Comments Chloride Lvl (test code = Chloride Lvl) 100 95-109 [facility] [id number] 00:36:00 Test Item Value Reference Range Interpretation Comments CO2 (test code = CO2) 27 24-32 [facility]Sm[facility] [id number] 00:36:00 Test Item Value Reference Range Interpretation Comments Calcium Lvl (test code = Calcium Lvl) 8.9 8.5-10.5 [facility] [id number] 00:36:00 Test Item Value Reference Range Interpretation Comments AGAP (test code = AGAP) 13.2 10.0-20.0 [facility] [id number] 00:36:00 Test Item Value Reference Range Interpretation Comments eGFR (test code = eGFR) 10 [facility] CenterTdghlrnCTGOFBERVT3097-55-06 00:36:00 Test Item Value Reference Range Interpretation Comments WBC (test code = WBC) 2.5 3.7-10.4 [facility] CenterXxocnonIHLUTGPULF8484-88-78 00:36:00 Test Item Value Reference Range Interpretation Comments RBC (test code = RBC) 1.97 4.70-6.10 [facility] CenterGaauianDIEZBDBOPK8983-81-00 00:36:00 Test Item Value Reference Range Interpretation Comments Hgb (test code = Hgb) 7.1 14.0-18.0 [facility] CenterTqplhzzNXHYZQNTUC6081-59-21 00:36:00 Test Item Value Reference Range Interpretation Comments Hct (test code = Hct) 20.6 42.0-54.0 [facility] CenterHmegisgQSOTFNNGUX8718-27-58 00:36:00 Test Item Value Reference Range Interpretation Comments MCV (test code = MCV) 105.0 80.0-94.0 [facility] CenterEsujekeILQMROWQXK1156-20-84 00:36:00 Test Item Value Reference Range Interpretation Comments MCH (test code = MCH) 36.2 pg 27.0-31.0 [facility] CenterBwbrqhjUMSKSZPWMC5805-92-47 00:36:00 Test Item Value Reference Range Interpretation Comments MCHC (test code = MCHC) 34.5 32.0-36.0 [facility] CenterGjphikhLTIWSSWUQK6705-70-30 00:36:00 Test Item Value Reference Range Interpretation Comments RDW (test code = RDW) 21.1 11.5-14.5 [facility] CenterAfrynwfYQHSVCXXJY4397-56-96 00:36:00 Test Item Value Reference Range Interpretation Comments Platelet (test code = Platelet) 136 133-450 [facility] CenterVfjggaqVZRAGJAZOG6650-10-85 00:36:00 Test Item Value Reference Range Interpretation Comments MPV (test code = MPV) 8.7 7.4-10.4 [facility] CenterCtbeedsGGACHCKNRE8286-16-24 00:36:00 Test Item Value Reference Range Interpretation Comments Segs (test code = Segs) 59.5 45.0-75.0 [facility] CenterQynwbwpHDCIXFPSCZ5765-45-64 00:36:00 Test Item Value Reference Range Interpretation Comments Lymphocytes (test code = Lymphocytes) 25.2 20.0-40.0 [facility] CenterAvpnjnbXDEUYALZXM4990-19-43 00:36:00 Test Item Value Reference Range Interpretation Comments Monocytes (test code = Monocytes) 12.5 2.0-12.0 [facility] CenterTageyfaGUEHZMGKLK7027-63-72 00:36:00 Test Item Value Reference Range Interpretation Comments Eosinophils (test code = 2.1 See_Comment [A utomated message] The Eosinophils) system which ge nerated this result tra nsmitted reference range : <=4.0. The reference r samantha was not used to int erpret this result as normal/abnormal . [facility] CenterVeodwhwKTBIMIZKXW4766-54-73 00:36:00 Test Item Value Reference Range Interpretation Comments Basophils (test code = 0.7 See_Comment [Aut omated message] The Basophils) system which ge nerated this result tra nsmitted reference range : <=1.0. The reference r samantha was not used to int erpret this result as normal/abnormal . [facility] CenterCggaijlLYVQFXMJKV5658-03-19 00:36:00 Test Item Value Reference Range Interpretation Comments Neutrophils # (test code = Neutrophils 1.5 1.5-8.1 #) [facility] CenterCyhdoerJJEJWWKIZQ4216-45-69 00:36:00 Test Item Value Reference Range Interpretation Comments Lymphocytes # (test code = Lymphocytes 0.6 1.0-5.5 #) [facility] CenterAqgbcgbHXVWFVTBXH5057-10-02 00:36:00 Test Item Value Reference Range Interpretation Comments Monocytes # (test code 0.3 See_Comment [Aut omated message] The = Monocytes #) system which generated this result tra nsmitted reference range : <=0.8. The reference r samantha was not used to int erpret this result as normal/abnormal . [facility] CenterYypvhneSIFHZYZJLH4001-43-08 00:36:00 Test Item Value Reference Range Interpretation Comments Eosinophils # (test code 0.1 See_Comment [A utomated message] The = Eosinophils #) system whic h generated this result tra nsmitted reference range : <=0.5. The reference r samantha was not used to int erpret this result as normal/abnormal . [facility]2022-06-29 09:09:00 Test Item Value Reference Range Interpretation Comments Ferritin Lvl (test code = Ferritin Lvl) 1543 22-130 [facility]2022-06-29 09:09:00 Test Item Value Reference Range Interpretation Comments Glucose Lvl (test code = Glucose Lvl) 288 70-99 [place] 141042-06-29 09:09:00 Test Item Value Reference Range Interpretation Comments BUN (test code = BUN) 40 7-22 [place] 141042-06-29 09:09:00 Test Item Value Reference Range Interpretation Comments Creatinine Lvl (test code = Creatinine 6.23 0.50-1.40 Lvl) [place] 141042-06-29 09:09:00 Test Item Value Reference Range Interpretation Comments Sodium Lvl (test code = Sodium Lvl) 134 135-145 [place] 141042-06-29 09:09:00 Test Item Value Reference Range Interpretation Comments Potassium Lvl (test code = Potassium 4.5 3.5-5.1 Lvl) [place] 141042-06-29 09:09:00 Test Item Value Reference Range Interpretation Comments Chloride Lvl (test code = Chloride Lvl) 96 95-109 [place] 141042-06-29 09:09:00 Test Item Value Reference Range Interpretation Comments CO2 (test code = CO2) 29 24-32 [place] 141042-06-29 09:09:00 Test Item Value Reference Range Interpretation Comments AGAP (test code = AGAP) 13.5 10.0-20.0 [place] 141042-06-29 09:09:00 Test Item Value Reference Range Interpretation Comments Calcium Lvl (test code = Calcium Lvl) 9.1 8.5-10.5 [place] 141042-06-29 09:09:00 Test Item Value Reference Range Interpretation Comments B/C Ratio (test code = B/C Ratio) 6 1 6-25 [place] 141042-06-29 09:09:00 Test Item Value Reference Range Interpretation Comments Total Protein (test code = Total 6.3 6.4-8.4 Protein) [place] 141042-06-29 09:09:00 Test Item Value Reference Range Interpretation Comments Albumin Lvl (test code = Albumin Lvl) 2.5 3.5-5.0 [place] 141042-06-29 09:09:00 Test Item Value Reference Range Interpretation Comments Globulin (test code = Globulin) 3.8 2.7-4.2 [place] 141042-06-29 09:09:00 Test Item Value Reference Range Interpretation Comments A/G Ratio (test code = A/G Ratio) 0.7 1 0.7-1.6 [place] 141042-06-29 09:09:00 Test Item Value Reference Range Interpretation Comments ALT (test code = ALT) 38 See_Comment [Auto mated message] The system which ge nerated this result transmit swathi reference range : <=65. The reference range was not used to interpr et this result as deny l/abnormal. [facility] [id number] 09:09:00 Test Item Value Reference Range Interpretation Comments AST (test code = AST) 31 See_Comment [Auto mated message] The system which ge nerated this result transmit swathi reference range : <=37. The reference range was not used to interpr et this result as deny l/abnormal. [place] 141042-06-29 09:09:00 Test Item Value Reference Range Interpretation Comments Alk Phos (test code = Alk Phos) 357 39-136 [place] 141042-06-29 09:09:00 Test Item Value Reference Range Interpretation Comments Bili Total (test code = Bili Total) 1.0 0.2-1.3 [place] 141042-06-29 09:09:00 Test Item Value Reference Range Interpretation Comments eGFR (test code = eGFR) 8 [facility]2022-06-29 09:09:00 Test Item Value Reference Range Interpretation Comments Magnesium Lvl (test code = Magnesium 2.0 1.8-2.4 Lvl) [place] 141042-06-29 09:09:00 Test Item Value Reference Range Interpretation Comments LDH (test code = LDH) 251 98-192 [facility]Sm[facility] [id number] 09:09:00 Test Item Value Reference Range Interpretation Comments Procalcitonin Lvl (test 0.51 See_Comment [Au tomated message] code = Procalcitonin Lvl) Th e system which generated this result transmitted ref erence range: <=0.10. The reference range was not used to interpr et this result as normal/abnormal . [place] 244712-06-29 09:09:00 Test Item Value Reference Range Interpretation Comments D-Dimer (test code = D-Dimer) 5.06 [facility] CenterRnyugxfWZLCQHLCUB9264-41-77 09:09:00 Test Item Value Reference Range Interpretation Comments WBC (test code = WBC) 4.8 3.7-10.4 [facility] CenterIwwldksHNXYFBUHSS4951-01-67 09:09:00 Test Item Value Reference Range Interpretation Comments RBC (test code = RBC) 2.14 4.70-6.10 [facility] CenterLctbntmLYLGNLTOHM9826-03-13 09:09:00 Test Item Value Reference Range Interpretation Comments Hgb (test code = Hgb) 7.7 14.0-18.0 [place] 244712-06-29 09:09:00 Test Item Value Reference Range Interpretation Comments Hct (test code = Hct) 22.8 42.0-54.0 [place] 244712-06-29 09:09:00 Test Item Value Reference Range Interpretation Comments MCV (test code = MCV) 106.5 80.0-94.0 [place] 244712-06-29 09:09:00 Test Item Value Reference Range Interpretation Comments MCH (test code = MCH) 36.1 pg 27.0-31.0 [facility] CenterTqxgiayNQENHUISRZ5522-22-04 09:09:00 Test Item Value Reference Range Interpretation Comments MCHC (test code = MCHC) 33.9 32.0-36.0 [facility] CenterGiranzeNISJNUZNIJ4332-77-67 09:09:00 Test Item Value Reference Range Interpretation Comments RDW (test code = RDW) 21.8 11.5-14.5 [facility] CenterYabyudhRCHNYLCTTZ3753-74-98 09:09:00 Test Item Value Reference Range Interpretation Comments Platelet (test code = Platelet) 176 133-450 [facility] CenterVkwzcrlZNVFIYFNHT6384-38-26 09:09:00 Test Item Value Reference Range Interpretation Comments MPV (test code = MPV) 8.2 7.4-10.4 [place] 244712-06-29 09:09:00 Test Item Value Reference Range Interpretation Comments Segs (test code = Segs) 83.6 45.0-75.0 [place] 244712-06-29 09:09:00 Test Item Value Reference Range Interpretation Comments Lymphocytes (test code = Lymphocytes) 10.7 20.0-40.0 [facility] CenterLpscjcaVKBPLVZDFK9163-58-67 09:09:00 Test Item Value Reference Range Interpretation Comments Monocytes (test code = Monocytes) 4.9 2.0-12.0 [facility]UojezqiYEZOBVKAZH8608-61-48 09:09:00 Test Item Value Reference Range Interpretation Comments Eosinophils (test code = 0.4 See_Comment [A utomated message] The Eosinophils) system which ge nerated this result tra nsmitted reference range : <=4.0. The reference r samantha was not used to int erpret this result as normal/abnormal . [facility] CenterXtkxzmfESJCYOTPCP6521-61-41 09:09:00 Test Item Value Reference Range Interpretation Comments Basophils (test code = 0.4 See_Comment [Aut omated message] The Basophils) system which ge nerated this result tra nsmitted reference range : <=1.0. The reference r samantha was not used to int erpret this result as normal/abnormal . [facility] CenterShcjjjfFOHVWPZRGY7054-62-99 09:09:00 Test Item Value Reference Range Interpretation Comments Neutrophils # (test code = Neutrophils 4.0 1.5-8.1 #) [facility] CenterBiwfunwYWMKVZHHEH2639-57-08 09:09:00 Test Item Value Reference Range Interpretation Comments Lymphocytes # (test code = Lymphocytes 0.5 1.0-5.5 #) [facility] CenterHlsxrrqEKOWSMJIIM5907-92-88 09:09:00 Test Item Value Reference Range Interpretation Comments Monocytes # (test code 0.2 See_Comment [Aut omated message] The = Monocytes #) system which generated this result tra nsmitted reference range : <=0.8. The reference r samantha was not used to int erpret this result as normal/abnormal . [facility] CenterZoqkghbINTOOCXPMG7454-04-93 09:09:00 Test Item Value Reference Range Interpretation Comments Macrocyte (test code = 1+ *ABN*(11/26/21 Macrocyte) 4:09 AM) [facility]lx[facility]ph[facility]MRJXYLBDD3791-50-55 09:09:00 Test Item Value Reference Range Interpretation Comments Interleukin 6 (test code = Interleukin 14.71 6) [facility] CentralXdklfpeZFSJXTFYCC4895-58-21 09:09:00 Test Item Value Reference Range Interpretation Comments C-REACTIVE PROTEIN (test code = 95.9 C-REACTIVE PROTEIN) [facility] CenterIdhoqgoFUULXNRYSI8496-94-38 12:33:00 Test Item Value Reference Range Interpretation Comments Segs (test code = Segs) 84.8 45.0-75.0 [place] 244712-06-28 12:33:00 Test Item Value Reference Range Interpretation Comments Lymphocytes (test code = Lymphocytes) 11.6 20.0-40.0 [place] 244712-06-28 12:33:00 Test Item Value Reference Range Interpretation Comments Monocytes (test code = Monocytes) 2.8 2.0-12.0 [place] 244712-06-28 12:33:00 Test Item Value Reference Range Interpretation Comments Eosinophils (test code = 0.4 See_Comment [A utomated message] The Eosinophils) system which ge nerated this result tra nsmitted reference range : <=4.0. The reference r samantha was not used to int erpret this result as normal/abnormal . [place] 244712-06-28 12:33:00 Test Item Value Reference Range Interpretation Comments Basophils (test code = 0.4 See_Comment [Aut omated message] The Basophils) system which ge nerated this result tra nsmitted reference range : <=1.0. The reference r samantha was not used to int erpret this result as normal/abnormal . [facility] CenterProqtetHTEWLTWUNF5894-95-58 12:33:00 Test Item Value Reference Range Interpretation Comments Neutrophils # (test code = Neutrophils 4.4 1.5-8.1 #) [facility] CenterQpwjnkjTLGVOGNSVH0980-79-65 12:33:00 Test Item Value Reference Range Interpretation Comments Lymphocytes # (test code = Lymphocytes 0.6 1.0-5.5 #) [place] 244712-06-28 12:33:00 Test Item Value Reference Range Interpretation Comments Monocytes # (test code 0.1 See_Comment [Aut omated message] The = Monocytes #) system which generated this result tra nsmitted reference range : <=0.8. The reference r samantha was not used to int erpret this result as normal/abnormal . [place] 244712-06-28 12:33:00 Test Item Value Reference Range Interpretation Comments Macrocyte (test code = 1+ *ABN*(11/25/21 Macrocyte) 7:33 AM) [place] 244712-06-28 12:33:00 Test Item Value Reference Range Interpretation Comments WBC (test code = WBC) 5.2 3.7-10.4 [facility] CenterVtotiqkXRIDDWBHVS8589-32-86 12:33:00 Test Item Value Reference Range Interpretation Comments RBC (test code = RBC) 2.18 4.70-6.10 [facility] CenterAnhpbrgKDSFVDUHPM9728-05-24 12:33:00 Test Item Value Reference Range Interpretation Comments Hgb (test code = Hgb) 7.8 14.0-18.0 [facility] CenterLbbactnEAGMUCJXBC6229-70-10 12:33:00 Test Item Value Reference Range Interpretation Comments Hct (test code = Hct) 23.6 42.0-54.0 [facility] CenterFluedslOVANBPUAID9964-29-70 12:33:00 Test Item Value Reference Range Interpretation Comments MCV (test code = MCV) 108.4 80.0-94.0 [facility] CenterCqhdtzuPPCQJFACVV7812-70-67 12:33:00 Test Item Value Reference Range Interpretation Comments MCH (test code = MCH) 35.9 pg 27.0-31.0 [facility] CenterDahdwxsLDOGNTFNGZ3231-96-31 12:33:00 Test Item Value Reference Range Interpretation Comments MCHC (test code = MCHC) 33.1 32.0-36.0 [facility] CenterByhozyoGJMJCQQNPG2620-01-35 12:33:00 Test Item Value Reference Range Interpretation Comments RDW (test code = RDW) 21.5 11.5-14.5 [facility] CenterQxrhfniWLAWSARYGP0594-77-25 12:33:00 Test Item Value Reference Range Interpretation Comments Platelet (test code = Platelet) 167 133-450 [facility] CenterVcpvactJGMTXIMOXM9711-43-92 12:33:00 Test Item Value Reference Range Interpretation Comments MPV (test code = MPV) 7.6 7.4-10.4 [facility]2022-06-28 11:17:00 Test Item Value Reference Range Interpretation Comments Vitamin B12 Lvl (test code = Vitamin 1508 B12 Lvl) [facility]2022-06-28 11:17:00 Test Item Value Reference Range Interpretation Comments Folate Lvl (test code = Folate Lvl) 22.3 [facility]2022-06-28 11:17:00 Test Item Value Reference Range Interpretation Comments Ferritin Lvl (test code = Ferritin Lvl) 6335 59-318 [place] 141042-06-28 11:17:00 Test Item Value Reference Range Interpretation Comments Glucose Lvl (test code = Glucose Lvl) 205 70-99 [place] 141042-06-28 11:17:00 Test Item Value Reference Range Interpretation Comments BUN (test code = BUN) 60 7-22 [place] 141042-06-28 11:17:00 Test Item Value Reference Range Interpretation Comments Creatinine Lvl (test code = Creatinine 8.46 0.50-1.40 Lvl) [place] 141042-06-28 11:17:00 Test Item Value Reference Range Interpretation Comments Sodium Lvl (test code = Sodium Lvl) 131 135-145 [place] 141042-06-28 11:17:00 Test Item Value Reference Range Interpretation Comments Potassium Lvl (test code = Potassium 5.2 3.5-5.1 Lvl) [place] 141042-06-28 11:17:00 Test Item Value Reference Range Interpretation Comments Chloride Lvl (test code = Chloride Lvl) 93 95-109 [place] 141042-06-28 11:17:00 Test Item Value Reference Range Interpretation Comments CO2 (test code = CO2) 29 24-32 [place] 141042-06-28 11:17:00 Test Item Value Reference Range Interpretation Comments Calcium Lvl (test code = Calcium Lvl) 8.7 8.5-10.5 [place] 141042-06-28 11:17:00 Test Item Value Reference Range Interpretation Comments Total Protein (test code = Total 6.0 6.4-8.4 Protein) [place] 141042-06-28 11:17:00 Test Item Value Reference Range Interpretation Comments Albumin Lvl (test code = Albumin Lvl) 2.6 3.5-5.0 [place] 141042-06-28 11:17:00 Test Item Value Reference Range Interpretation Comments ALT (test code = ALT) 43 See_Comment [Auto mated message] The system which ge nerated this result transmit swathi reference range : <=65. The reference range was not used to interpr et this result as deny l/abnormal. [place] 141042-06-28 11:17:00 Test Item Value Reference Range Interpretation Comments AST (test code = AST) 35 See_Comment [Auto mated message] The system which ge nerated this result transmit swathi reference range : <=37. The reference range was not used to interpr et this result as deny l/abnormal. [facility]2022-06-28 11:17:00 Test Item Value Reference Range Interpretation Comments Alk Phos (test code = Alk Phos) 385 39-136 [facility]2022-06-28 11:17:00 Test Item Value Reference Range Interpretation Comments Bili Total (test code = Bili Total) 1.2 0.2-1.3 [facility]2022-06-28 11:17:00 Test Item Value Reference Range Interpretation Comments AGAP (test code = AGAP) 14.2 10.0-20.0 [facility]2022-06-28 11:17:00 Test Item Value Reference Range Interpretation Comments B/C Ratio (test code = B/C Ratio) 7 1 6-25 [facility]2022-06-28 11:17:00 Test Item Value Reference Range Interpretation Comments Globulin (test code = Globulin) 3.4 2.7-4.2 [facility]2022-06-28 11:17:00 Test Item Value Reference Range Interpretation Comments A/G Ratio (test code = A/G Ratio) 0.8 1 0.7-1.6 [facility]2022-06-28 11:17:00 Test Item Value Reference Range Interpretation Comments eGFR (test code = eGFR) 6 [facility]2022-06-28 11:17:00 Test Item Value Reference Range Interpretation Comments Magnesium Lvl (test code = Magnesium 1.9 1.8-2.4 Lvl) [facility]2022-06-28 11:17:00 Test Item Value Reference Range Interpretation Comments LDH (test code = LDH) 297 98-192 [facility]2022-06-28 11:17:00 Test Item Value Reference Range Interpretation Comments Procalcitonin Lvl (test 0.63 See_Comment [Au tomated message] code = Procalcitonin Lvl) Th e system which generated this result transmitted ref erence range: <=0.10. The reference range was not used to interpr et this result as normal/abnormal . [facility]QiksyctENYZWNYZJB8744-12-87 11:17:00 Test Item Value Reference Range Interpretation Comments D-Dimer (test code = D-Dimer) 5.33 [facility] CentralIwxtohvYAZSAGXWBT0215-33-88 11:17:00 Test Item Value Reference Range Interpretation Comments Hep Bs Ag (test code Negative *NA*(11/25/21 = Hep Bs Ag) 6:17 AM) [facility] CentralQdierhvBKZJNUELHT8437-43-97 11:17:00 Test Item Value Reference Range Interpretation Comments C-REACTIVE PROTEIN (test code = 134.0 C-REACTIVE PROTEIN) [facility] CentralVijxsrcMAZFSINCLN6923-82-69 11:17:00 Test Item Value Reference Range Interpretation Comments Interleukin 6 (test code = Interleukin 25.99 6) [facility] [id number] 05:52:00 Test Item Value Reference Range Interpretation Comments RBC product (test code Product available = RBC product) 4(11/25/21 12:52 AM) [facility] CentralOykepdxQWFSWUEYVN2420-81-00 05:43:00 Test Item Value Reference Range Interpretation Comments Coronavirus (COVID-19) Detected MANUEL (test code = 8*ABN*(11/25/21 12:43 Coronavirus (COVID-19) AM) MANUEL) [facility] AND [id number] 05:23:00 Test Item Value Reference Range Interpretation Comments Occult Bld Stl (test Negative (11/25/21 12:23 code = Occult Bld Stl) AM) [facility] [id number] 04:12:00 Test Item Value Reference Range Interpretation Comments ABO/Rh (test code = ABO/Rh) AB POS [facility] ZQMUKUJ3621-39-12 04:12:00 Test Item Value Reference Range Interpretation Comments Antibody Scrn (test Negative (11/24/21 code = Antibody Scrn) 11:12 PM) [facility] [id number] 04:12:00 Test Item Value Reference Range Interpretation Comments Total CK (test code = Total CK) 86 12-191 [facility] [id number] 04:12:00 Test Item Value Reference Range Interpretation Comments HS Troponin I (test code = HS Troponin 316 I) [facility] [id number] 04:12:00 Test Item Value Reference Range Interpretation Comments Glucose Lvl (test code = Glucose Lvl) 261 70-99 [place] 141042-06-28 04:12:00 Test Item Value Reference Range Interpretation Comments BUN (test code = BUN) 60 7-22 [place] 141042-06-28 04:12:00 Test Item Value Reference Range Interpretation Comments Creatinine Lvl (test code = Creatinine 8.49 0.50-1.40 Lvl) [place] 141042-06-28 04:12:00 Test Item Value Reference Range Interpretation Comments Sodium Lvl (test code = Sodium Lvl) 133 135-145 [place] 141042-06-28 04:12:00 Test Item Value Reference Range Interpretation Comments Potassium Lvl (test code = Potassium 4.9 3.5-5.1 Lvl) [place] 141042-06-28 04:12:00 Test Item Value Reference Range Interpretation Comments Chloride Lvl (test code = Chloride Lvl) 93 95-109 [place] 141042-06-28 04:12:00 Test Item Value Reference Range Interpretation Comments CO2 (test code = CO2) 31 24-32 [place] 141042-06-28 04:12:00 Test Item Value Reference Range Interpretation Comments Calcium Lvl (test code = Calcium Lvl) 9.1 8.5-10.5 [place] 141042-06-28 04:12:00 Test Item Value Reference Range Interpretation Comments Total Protein (test code = Total 6.8 6.4-8.4 Protein) [place] 141042-06-28 04:12:00 Test Item Value Reference Range Interpretation Comments Albumin Lvl (test code = Albumin Lvl) 2.5 3.5-5.0 [place] 141042-06-28 04:12:00 Test Item Value Reference Range Interpretation Comments ALT (test code = ALT) 51 See_Comment [Auto mated message] The system which ge nerated this result transmit swathi reference range : <=65. The reference range was not used to interpr et this result as deyn l/abnormal. [place] 141042-06-28 04:12:00 Test Item Value Reference Range Interpretation Comments AST (test code = AST) 36 See_Comment [Auto mated message] The system which ge nerated this result transmit swathi reference range : <=37. The reference range was not used to interpr et this result as deny l/abnormal. [facility] HospitalSmashrun [id number] 04:12:00 Test Item Value Reference Range Interpretation Comments Alk Phos (test code = Alk Phos) 383 39-136 [place] 141042-06-28 04:12:00 Test Item Value Reference Range Interpretation Comments Bili Total (test code = Bili Total) 1.1 0.2-1.3 [place] 141042-06-28 04:12:00 Test Item Value Reference Range Interpretation Comments AGAP (test code = AGAP) 13.9 10.0-20.0 [facility] SystemsN[place] [id number] 04:12:00 Test Item Value Reference Range Interpretation Comments B/C Ratio (test code = B/C Ratio) 7 1 6-25 [place] [address]-06-28 04:12:00 Test Item Value Reference Range Interpretation Comments Globulin (test code = Globulin) 4.3 2.7-4.2 [place] 141042-06-28 04:12:00 Test Item Value Reference Range Interpretation Comments A/G Ratio (test code = A/G Ratio) 0.6 1 0.7-1.6 [place] 141042-06-28 04:12:00 Test Item Value Reference Range Interpretation Comments eGFR (test code = eGFR) 5 [place] 141042-06-28 04:12:00 Test Item Value Reference Range Interpretation Comments Procalcitonin Lvl (test 0.69 See_Comment [Au tomated message] code = Procalcitonin Lvl) e system which generated this result transmitted ref erence range: <=0.10. The reference range was not used to interpr et this result as normal/abnormal . [facility] HospitalBnfgeyaWBANQFRIDX9915-61-85 04:12:00 Test Item Value Reference Range Interpretation Comments WBC (test code = WBC) 4.1 3.7-10.4 [place] 244712-06-28 04:12:00 Test Item Value Reference Range Interpretation Comments RBC (test code = RBC) 1.78 4.70-6.10 [place] [address]-06-28 04:12:00 Test Item Value Reference Range Interpretation Comments Hgb (test code = Hgb) 6.5 14.0-18.0 [place] 244712-06-28 04:12:00 Test Item Value Reference Range Interpretation Comments Hct (test code = Hct) 19.5 42.0-54.0 [place] 244712-06-28 04:12:00 Test Item Value Reference Range Interpretation Comments MCV (test code = MCV) 110.0 80.0-94.0 [place] 244712-06-28 04:12:00 Test Item Value Reference Range Interpretation Comments MCH (test code = MCH) 36.5 pg 27.0-31.0 [facility] CenterUalhomsCGMQZSLICG9979-60-75 04:12:00 Test Item Value Reference Range Interpretation Comments MCHC (test code = MCHC) 33.2 32.0-36.0 [place] 244712-06-28 04:12:00 Test Item Value Reference Range Interpretation Comments RDW (test code = RDW) 19.0 11.5-14.5 [facility] CenterEkaeepfSXMOQKHJZX8847-84-45 04:12:00 Test Item Value Reference Range Interpretation Comments Platelet (test code = Platelet) 180 133-450 [facility] CenterAiqvxpfEHPNPPXBMH8186-95-09 04:12:00 Test Item Value Reference Range Interpretation Comments MPV (test code = MPV) 8.3 7.4-10.4 [facility] CenterTjmzwzuJSRZVZIMCS1944-08-83 04:12:00 Test Item Value Reference Range Interpretation Comments PTT (test code = PTT) 45.4 s 22.9-35.8 [place] 244712-06-28 04:12:00 Test Item Value Reference Range Interpretation Comments PT (test code = PT) 19.1 s 12.0-14.7 [place] 244712-06-28 04:12:00 Test Item Value Reference Range Interpretation Comments INR (test code = INR) 1.62 1 0.85-1.17 [place] 244712-06-28 04:12:00 Test Item Value Reference Range Interpretation Comments RBC Morph (test code = See Note (11/24/21 RBC Morph) 11:12 PM) [place] 244712-06-28 04:12:00 Test Item Value Reference Range Interpretation Comments Plt Morph (test code = Normal (11/24/21 11:12 Plt Morph) PM) [place] 244712-06-28 04:12:00 Test Item Value Reference Range Interpretation Comments Segs (test code = Segs) 72.2 45.0-75.0 [place] 244712-06-28 04:12:00 Test Item Value Reference Range Interpretation Comments Lymphocytes (test code = Lymphocytes) 16.2 20.0-40.0 [place] 244712-06-28 04:12:00 Test Item Value Reference Range Interpretation Comments Monocytes (test code = Monocytes) 8.0 2.0-12.0 [place] 244712-06-28 04:12:00 Test Item Value Reference Range Interpretation Comments Eosinophils (test code = 2.7 See_Comment [A utomated message] The Eosinophils) system which ge nerated this result tra nsmitted reference range : <=4.0. The reference r samantha was not used to int erpret this result as normal/abnormal . [place] 244712-06-28 04:12:00 Test Item Value Reference Range Interpretation Comments Basophils (test code = 0.9 See_Comment [Aut omated message] The Basophils) system which ge nerated this result tra nsmitted reference range : <=1.0. The reference r samantha was not used to int erpret this result as normal/abnormal . [facility] CenterBqbbksxDXXEICGJTG7172-59-96 04:12:00 Test Item Value Reference Range Interpretation Comments Neutrophils # (test code = Neutrophils 2.9 1.5-8.1 #) [place] 244712-06-28 04:12:00 Test Item Value Reference Range Interpretation Comments Lymphocytes # (test code = Lymphocytes 0.7 1.0-5.5 #) [place] [address]-06-28 04:12:00 Test Item Value Reference Range Interpretation Comments Monocytes # (test code 0.3 See_Comment [Aut omated message] The = Monocytes #) system which generated this result tra nsmitted reference range : <=0.8. The reference r samantha was not used to int erpret this result as normal/abnormal . [place] [address]-06-28 04:12:00 Test Item Value Reference Range Interpretation Comments Eosinophils # (test code 0.1 See_Comment [A utomated message] The = Eosinophils #) system whic h generated this result tra nsmitted reference range : <=0.5. The reference r samantha was not used to int erpret this result as normal/abnormal . [facility] HospitalFywirbwRXQARPIWAW7613-60-58 04:12:00 Test Item Value Reference Range Interpretation Comments Anisocyte (test code = 1+ *ABN*(11/24/21 Anisocyte) 11:12 PM) [facility] HospitalZbeckplUOVTMCEKGL2568-98-19 04:12:00 Test Item Value Reference Range Interpretation Comments Macrocyte (test code = 1+ *ABN*(11/24/21 Macrocyte) 11:12 PM) [facility] HospitalDruhbqwRJUBSBREWU8702-07-54 04:12:00 Test Item Value Reference Range Interpretation Comments Microcyte (test code = 1+ *ABN*(11/24/21 Microcyte) 11:12 PM) [facility] [id number] 00:00:00 Test Item Value Reference Range Interpretation Comments A1C (test code = 4548-4) 8.8 HEMOGLOBIN [id number] 00:00:00 Test Item Value Reference Range Interpretation Comments A1C (test code = 4548-4) 8.3 HEMOGLOBIN [id number] 00:00:00 Test Item Value Reference Range Interpretation Comments A1C (test code = 4548-4) 10.3
--- NOTE | 2022-09-10 13:35 | RAD REPORT ---
EXAM DESCRIPTION: CT - Abdomen Pelvis Wo Contrast - 09/10/2022 1:19 pm CLINICAL HISTORY: Abdominal pain. ABD PAIN COMPARISON: Chest Pa And Lat (2 Views) dated 06/16/2022 TECHNIQUE: CT imaging of the abdomen and pelvis was performed without contrast. Solid organ, bowel a nd vascular assessment is limited due to lack of IV and oral contrast. All CT scans are performed using dose optimization technique as appropriate and may include automated exposure control or mA/KV adjustment according to patient size. FINDINGS: Moderate right pleural effusion.Moderate to large hiatal hernia. Cholelithiasis.No gross liver, spleen, pancreas, adrenal glands abnormality. Kidneys appear atrophic with benign left renal cyst. No bowel obstruction, free air, free fluid or abscess. There is prominent diverticulosis coli of the sigmoid colon. Focal area of narrowing is seen measuring 2 cm in the distal sigmoid colon. There is s ignificant stool in the rectosigmoid colon. Aortic atherosclerosis moderate atherosclerosis of branch vessels. Bilateral fat containing inguinal hernias, larger on the left.There is a compression fracture seen of the L1 vertebral body probably chronic. There is moderate canal narrowing caused by this. IMPRESSION: Focal narrowing of the colon seen distal sigmoid colon. Recommend followup colonoscopy. Cholelithiasis. Moderate bilateral renal atrophy. Large fat containing inguinal hernias, larger on the left. Moderate compression fracture, likely chronic, L1 vertebral body. MRI lumbar spine could be obtained if clinically indicated. Fecal retention. Moderate right pleural effusion. A limited non-contrast examination was performed as detailed.
[2022-09-10 13:37] LABS: Hematocrit 17.2 % (39.6-49.0); Lymphocytes % 14.7 % (15.3-44.8); MCV 88.8 fL (80-100); MPV 7.1 fL (7.6-11.3); RBC Red Blood Cell Count 1.93 M/uL (4.33-5.43)
[2022-09-10 13:45] LABS: ALT/SGPT 115 U/L (16-61); AST/SGOT 54 U/L (15-37); Albumin 2.7 g/dL (3.4-5.0); Alkaline Phosphatase 238 U/L (45-117); BUN Blood Urea Nitrogen 45 mg/dL (7-18); Bicarbonate 29 mEq/L (21-32); Bilirubin Total 0.7 mg/dL (0.2-1.0); Glomerular Filtration Rate 14 ml/min (=/>90); Glucose Level 343 mg/dL (74-106); Lipase 78 U/L (13-75); Potassium 4.7 mEq/L (3.5-5.1); Protein, Total 6.5 g/dL (6.4-8.2); Sodium Level 129 mEq/L (136-145)
[2022-09-10] MEDS ORDERED: BISACODYL 10 MG RECTAL SUPP ONE (13:48)
[2022-09-10] MEDS ORDERED: IBUPROFEN 400 MG TAB ONE (13:49)
[2022-09-10] MEDS ORDERED: IBUPROFEN 200 MG TAB PO ONE (13:49)
--- NOTE | 2022-09-10 14:22 | ER ---
Nurse's Notes [facility] Name: Guzman Mayers Age: 77 yrs Sex: Male : 1945 Arrival Date: 09/10/2022 Time: 12:06 Bed 20 Private MD: Naveed Fortune Diagnosis: Constipation;Anemia in chronic kidney disease;Nyponatremia Presentation: 09/10 12:40 Chief complaint: Patient states: his home health nurse sent him here due to follow up ap3 for high blood sugar. the home health nurse told them his blood sugar was +500, however the son reports giving the patient 50 units of short acting insulin 45 minutes prior to the nurses arrival. patient reports constipation, and abdominal pain as well. Coronavirus screen: At this time, the client does not indicate any symptoms associated with coronavirus-19. Ebola Screen: No symptoms or risks identified at this time. Initial Sepsis Screen: Does the patient meet any 2 criteria? No. Patient's initial sepsis screen is negative. Does the patient have a suspected source of infection? No. Patient's initial sepsis screen is negative. Risk Assessment: Do you want to hurt yourself or someone else? Patient reports no desire to harm self or others. Onset of symptoms is unknown. 12:40 Method Of Arrival: Wheelchair ap3 12:44 Acuity: CHICHO 2 ap3 12:45 Note patients FSBS in triage is 352. ap3 Triage Assessment: 12:44 General: Appears uncomfortable, Behavior is cooperative, anxious. Pain: Complains of ap3 pain in abdomen. Cardiovascular: Patient's skin is warm and dry. Respiratory: Airway is patent Respiratory effort is even, unlabored, Respiratory pattern is regular, symmetrical. Historical: - Allergies: 12:43 Codeine; ap3 12:43 GABAPENTIN; ap3 - PMHx: 12:43 ADD/ADHD; CHF; CKD; COPD; Diabetes - IDDM; Dialysis; dialysis tues, thurs, sat, uses o2 ap3 when sleeping.; High Cholesterol; HTN; Hypertension; - Immunization history:: Client reports receiving the 2nd dose of the Covid vaccine. - Social history:: Smoking status: Patient denies any tobacco usage or history of. Assessment: 13:12 General: Appears in no apparent distress. uncomfortable, Behavior is calm, cooperative, kr3 appropriate for age. Neuro: Level of Consciousness is awake, alert, obeys commands. Cardiovascular: Patient's skin is warm and dry. Respiratory: Airway is patent Respiratory effort is even, unlabored, Respiratory pattern is regular, symmetrical. GI: No signs and/or symptoms were reported involving the gastrointestinal system. : No signs and/or symptoms were reported regarding the genitourinary system. EENT: No signs and/or symptoms were reported regarding the EENT system. Derm: No signs and/or symptoms reported regarding the dermatologic system. Musculoskeletal: No deficits noted. 14:56 Reassessment: patient stated the medication did help and he was feeling a little better.kr3 15:45 Reassessment: No changes from previously documented assessment. Patient and/or family iw updated on plan of care and expected duration. Pain level reassessed. Patient is alert, oriented x 3, equal unlabored respirations, skin warm/dry/pink. moved to exam room #20 via stretcher. Vital Signs: 12:40 BP 123 / 98; Pulse 42; Resp 22; Temp 98.4; Pulse Ox 94% ; Weight 73.03 kg; ap3 13:27 BP 104 / 50; Pulse 58; Resp 18; Pulse Ox 100% on 4 lpm NC; kr3 14:55 BP 109 / 68; Pulse 76; Resp 18; Pulse Ox 100% on 2 lpm NC; kr3 16:10 BP 130 / 59; Pulse 60; Resp 18; Pulse Ox 100% on 2 lpm NC; iw ED Course: 12:11 Patient arrived in ED. mr 12:12 Naveed Fortune, DO is Private Physician. mr 12:13 Sus[facility]C [facility] kb 12:13 Jerardo Vasquez MD is Attending Physician. kb 12:43 Triage completed. ap3 12:44 Arm band placed on right wrist. ap3 13:12 Carmen Yanez, GILSON is Primary Nurse. kr3 13:13 Inserted saline lock: 20 gauge in right antecubital area, using aseptic technique. kr3 ,using aseptic technique. Bull Blood collected. 13:20 Abdomen In Process Unspecified. EDMS 13:30 CBC with Diff Sent. kj1 13:30 Lipase Sent. kj1 14:[address] MD is Hospitalizing Provider. kb 14:55 Type And Screen Sent. kr3 Administered Medications: 13:51 Drug: Dulcolax MT Suppository 10 mg Route: MT; ap3 16:05 Follow up: Response: No adverse reaction iw 13:51 Drug: Ibuprofen PO 600 mg Route: PO; ap3 16:05 Follow up: Response: No adverse reaction iw Outcome: 14:21 Decision to Hospitalize by Provider. kb 17:19 Patient left the ED. iw Signatures: Dispatcher [employer] EDSusana Torrez, GENI CADET-Kelly Rosenthal mr Alisa Chambers, RN RN iw Juana Lakhani RN RN ap3 Linda Mesa kj1 Carmen Yanez RN RN kr3 Corrections: (The following items were deleted from the chart) 12:45 12:40 Acuity: CHICHO 3 ap3 ap3
--- NOTE | 2022-09-10 14:22 | EDPHYS ---
Physician Documentation [facility] Name: Guzman Mayers Age: 77 yrs Sex: Male : 1945 Arrival Date: 09/10/2022 Time: 12:06 Bed 20 Private MD: Tong [facility] ED Physician Jerardo Vasquez HPI: 09/10 14:42 This 77 yrs old Male presents to ER via Wheelchair with complaints of High kb Blood Sugar. 15:36 The patient or guardian reports hyperglycemia, that was potentially precipitated by no kb particular event, with the patient's symptoms witnessed by no one. Onset: The symptoms/episode began/occurred today. Associated signs and symptoms: Pertinent positives: None. Current symptoms: In the emergency department the patient's symptoms are unchanged from the initial presentation. The patient has experienced similar episodes in the past. The patient has not recently seen a physician. Son reports pt was sent by home health nurse for blood sugar greater than 500. States he did give him some insulin prior to arrival. Pt also reports low back pain, abd pain and constipation. . Historical: - Allergies: 12:43 Codeine; ap3 12:43 GABAPENTIN; ap3 - PMHx: 12:43 ADD/ADHD; CHF; CKD; COPD; Diabetes - IDDM; Dialysis; dialysis tues, thurs, sat, uses o2 ap3 when sleeping.; High Cholesterol; HTN; Hypertension; - Immunization history:: Client reports receiving the 2nd dose of the Covid vaccine. - Social history:: Smoking status: Patient denies any tobacco usage or history of. ROS: 15:38 Constitutional: Negative for fever, chills, and weight loss. kb 15:38 Abdomen/GI: Positive for abdominal pain, constipation, Negative for nausea and vomiting. 15:38 Back: Positive for pain at rest, pain with movement, of the low back area. 15:38 Endocrine: Positive for hyperglycemia. 15:38 All other systems are negative. Exam: 15:38 Constitutional: This is a well developed, well nourished patient who is awake, alert, kb and in no acute distress. Head/Face: Normocephalic, atraumatic. ENT: Moist Mucous membranes Cardiovascular: Regular rate and rhythm with a normal S1 and S2. No gallops, murmurs, or rubs. No pulse deficits. Respiratory: Respirations even and unlabored. No increased work of breathing. Talking in full sentences Skin: Warm, dry with normal turgor. Normal color. MS/ Extremity: Pulses equal, no cyanosis. Neurovascular intact. Full, normal range of motion. Neuro: Awake and alert, GCS 15, oriented to person, place, time, and situation. Moves all extremities. Normal gait. 15:38 Abdomen/GI: Inspection: abdomen appears normal, Bowel sounds: normal, Palpation: soft, in all quadrants, mild abdominal tenderness, in all quadrants. Vital Signs: 12:40 BP 123 / 98; Pulse 42; Resp 22; Temp 98.4; Pulse Ox 94% ; Weight 73.03 kg; ap3 13:27 BP 104 / 50; Pulse 58; Resp 18; Pulse Ox 100% on 4 lpm NC; kr3 14:55 BP 109 / 68; Pulse 76; Resp 18; Pulse Ox 100% on 2 lpm NC; kr3 16:10 BP 130 / 59; Pulse 60; Resp 18; Pulse Ox 100% on 2 lpm NC; iw MDM: 12:48 Patient medically screened. kb 13:51 Data reviewed: vital signs, nurses notes. External Records Reviewed: Inpatient record: kb labs and CT reviewed from previous admissions. Pt has had cholelithiasis previously and has had elevation in LFTs as well. 15:38 Differential diagnosis: DKA, hyperglycemia. Consideration of Admission/Observation kb Patient was admitted/placed on observation. Management of patient was discussed with the following: Hospitalist: Dr Lane accepts pt for admission. Historians other than the Patient: Daughter/Son: son. Care significantly affected by the following chronic conditions: Diabetes, Chronic Kidney Disease. Counseling: I had a detailed discussion with the patient and/or guardian regarding: the historical points, exam findings, and any diagnostic results supporting the discharge/admit diagnosis, lab results, radiology results, the need for further work-up and treatment in the hospital. 09/10 12:48 Order name: CBC with Diff kb 09/10 12:48 Order name: CMP; Complete Time: 13:47 kb 09/10 12:48 Order name: Lipase; Complete Time: 13:47 kb 09/10 12:48 Order name: Acetone, Serum; Complete Time: 13:47 kb 09/10 13:05 Order name: Glucose, Ancillary Testing; Complete Time: 13:06 EDMS 09/10 14:02 Order name: Type And Screen kb 09/10 15:40 Order name: Urinalysis w/ reflexes EDMS 09/10 15:40 Order name: Basic Metabolic Panel EDMS 09/10 15:40 Order name: Basic Metabolic Panel EDMS 09/10 15:40 Order name: Basic Metabolic Panel EDMS 09/10 15:40 Order name: Basic Metabolic Panel EDMS 09/10 15:40 Order name: CBC with Automated Diff EDMS 09/10 15:41 Order name: CBC with Automated Diff EDMS 09/10 15:41 Order name: CBC with Automated Diff EDMS 09/10 15:41 Order name: CBC with Automated Diff EDMS 09/10 13:17 Order name: Abdomen ; Complete Time: 13:35 EDMS 09/10 12:48 Order name: IV Saline Lock; Complete Time: 13:13 kb 09/10 12:48 Order name: Labs collected and sent; Complete Time: 13:13 kb Administered Medications: 13:51 Drug: Dulcolax SD Suppository 10 mg Route: SD; ap3 16:05 Follow up: Response: No adverse reaction iw 13:51 Drug: Ibuprofen PO 600 mg Route: PO; ap3 16:05 Follow up: Response: No adverse reaction iw Disposition Summary: 09/10/22 14:21 Hospitalization Ordered Hospitalization Status: Inpatient Admission kb Provider: Salo Lane Location: Telemetry/MedSurg (Inpatient) kb Condition: Stable kb Problem: new kb Symptoms: are unchanged kb Bed/Room Type: Standard Room Assignment: [facility](09/10/22 16:05) iw Diagnosis - Constipation kb - Anemia in chronic kidney disease kb - Nyponatremia kb Forms: - Medication Reconciliation Form kb - SBAR form kb Signatures: Dispatcher [employer] EDSusana Torrez, HELIO-C GROUNDS PERSON-Ckb Alisa Chambers, RN RN iw Juana Lakhani RN RN ap3 Corrections: (The following items were deleted from the chart) 13:17 12:49 Abdomen Pelvis W Con+CT.RAD.BRZ ordered. EDMS EDMS 13:34 12:49 Urinalysis+U.LAB.BRZ ordered. EDMS EDMS 16:05 14:21 kb iw
--- NOTE | 2022-09-10 14:23 | P.HP ---
Certification for Inpatient Patient admitted to: Inpatient With expected LOS: >2 Midnights Patient will require the following post-hospital care: None Practitioner: I am a practitioner with admitting privileges, knowledge of patient current condition, hospital course, and medical plan of care. Services: Services provided to patient in accordance with Admission requirements found in Title 42 Section 412.3 of the Code of Federal Regulations Patient History Date of Service: 09/10/22 Primary Care Provider: Tong Reason for admission: Anemia in chronic kidney disease, ESRD History of Present Illness: Patient is a 77-year-old male with past medical history of ESRD on HD MWF, COPD on home O2, chronic diastolic CHF, anemia of chronic disease, hypertension, hyperlipidemia, A-fib, and insulin-dependent type 2 diabetes who presented to the emergency department high blood sugar, abdominal pain, back pain. Patient reports his home health nurse obtained his blood sugar and it was reported that his reading was 586. Patient was instructed to go to the ER for further treatment. In the ER, his labs are significant for hemoglobin 5.9, sodium 129, chloride 94, BUN 45, creatinine 4.19, glucose 352. Patient denies any melena, hematochezia, hematemesis but hasn't had a bowel movement in over 4 days. He had dialysis yesterday, which he did complete. Nephrology was contacted and recommended 2 units PRBC to be transfused now with hemodialysis. Vital signs have been stable. Will admit for further evaluation and management of anemia. Allergies codeine Allergy (Verified 10/15/21 23:40) Hallucinations gabapentin Adverse Reaction (Verified 10/15/21 23:40) Hallucinations Home Medications: Atorvastatin Calcium 1 tab PO BEDTIME 10/16/21 Insulin Glargine,Hum.rec.anlog [Basaglar Kwikpen U-100] 50 unit SQ DAILY 10/16/21 Sertraline HCl 50 mg PO DAILY 05/26/22 Nepro Shake [Nepro*] 237 ml PO BID #60 can 05/28/22 Metoprolol Tartrate [Lopressor*] 12.5 mg PO BID 6AM 6PM #30 tab 06/20/22 Epoetin [Retacrit] 10,000 unit IV EVERY HD vial 07/30/22 Pantoprazole [Protonix Tab*] 40 mg PO BID #60 tab 07/30/22 - Past Medical/Surgical History Diabetic: Yes -: Hypertension -: Hyperlipidemia -: Diabetes type 2, insulin dependent -: End-stage renal disease, hemodialysis-Wednesday, Wednesday, Wednesday -: Diastolic CHF -: COPDon home O2 -: Anemia of chronic disease -: skin graft for elctrical persaud - BLE 1970s -: Right shoulder surgery -: bilateral leg surgery -: 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 He has 3 children - Family History mother and father Notes: adopted - Social History Alcohol use: No CD- Drugs: No Caffeine use: No Place of Residence: Home Review of Systems 10-point ROS is otherwise unremarkable General: Weakness Respiratory: Cough Gastrointestinal: Constipation Musculoskeletal: Back Pain Physical Examination - Vital Signs Temperature: 98.4 F Blood Pressure: 104/50 Pulse: 58 Respirations: 18 Pulse Ox (%): 97 - Physical Exam General: In no apparent distress HEENT: Atraumatic, Normocephalic, PERRLA Neck: Supple, 2+ carotid pulse no bruit Respiratory: Clear to auscultation bilaterally, Normal air movement Cardiovascular: No edema, Normal pulses Capillary refill: <2 Seconds Gastrointestinal: Normal bowel sounds Musculoskeletal: No clubbing, No swelling Integumentary: No rashes, No breakdown Neurological: Normal strength at 5/5 x4 extr, Normal tone, Sensation intact Lymphatics: No axilla or inguinal lymphadenopathy - Studies Laboratory Data (last 24 hrs) 09/10/22 13:12: Sodium 129 L, Potassium 4.7, BUN 45 H, Creatinine 4.19 H, Glucose 343 H, Total Bilirubin 0.7, AST 54 H, ALT 115 H, Alkaline Phosphatase 238 H, Lipase 78 H 09/10/22 13:12: WBC 7.00, Hgb 5.9 L*, Hct 17.2 L, Plt Count 286 Assessment and Plan - Plan Assessment Acute on chronic anemia of chronic kidney disease ESRD on dialysis Type 2 diabetes insulin-dependent with hyperglycemia COPD Chronic A-fib Hypertension Hyperlipidemia Constipation Plan Acute on chronic anemia of chronic disease Hemoglobin is 5.9 today. 2 units PRBC transfusing with dialysis. Previous EGD in which no source of bleeding was found . ESRD on HD MWF Nephrology consult in place, to have HD with blood tranfusion. Insulin Dependent Type 2 Diabetes with hyperglycemia ACHS accu checks with mild sliding scale Continue home dose long acting when appropriate Carb control diet COPD on home O22.5 L Continue home O2, no acute exacerbation noted Chronic A-fib stable Hold any anticoagulation given his severe anemia Hypertension Hold oral antihypertensives given anemia Call provider if BP is elevated Hyperlipidemia Continue statin Constipation Started Colace, Senna, Miralax PRN, hold for loose stools DVT PPX: SCD Code status:Full Discharge Plan: Home - Advance Directives Does patient have a Living Will: No Does patient have a Durable POA for Healthcare: No - Code Status/Comfort Care Code Status Assessed: Yes (Full code) Critical Care: No Time Spent Managing Pts Care (In Minutes): 50
[2022-09-10] MEDS ORDERED: ONDANSETRON 4 MG/2 ML VIAL IV PRN (15:30)
[2022-09-10] MEDS ORDERED: DOCUSATE NA/SENNA CONC 1 TAB PO PRN (16:00)
[2022-09-10] MEDS ORDERED: DESMOPRESSIN 20 MCG in NA CHLORIDE 0.9% 50 ML IV SCH (16:00)
[2022-09-10] MEDS ORDERED: POLYETHYL GLY 3350 17 GM/DOSE PO PRN (16:00)
[2022-09-10] MEDS: INSULIN -REGULAR HUMAN 50 UNIT/0.5 ML ML SQ SCH ×2 (16:30→21:00)
--- NOTE | 2022-09-10 16:37 | CON ---
Date of Consultation: 09/10/2022 Reason For Consultation: Elevated BUN and creatinine, over volume, end-stage renal disease, dialysis management. History Of Present Illness: This is a pleasant 77-year-old gentleman, well known to me from the dialysis with significant past medical history of diabetes complicated with neuropathy and nephropathy, end-stage renal disease, on hemodialysis, Wednesday, Wednesday, Wednesday at [facility], CAD complicated with congestive heart failure with ejection fraction of 44%, hyperlipidemia, hypertension, the patient came to the hospital with weakness and shortness of breath, found to have hemoglobin 5.9. We saw the patient yesterday also on the dialysis unit. The patient had gained more than 7 kilos, we managed to remove 4 L yesterday. The patient continued to have shortness of breath, supposed to have extra treatment today. Past Medical History: Includes; 1. Hypertension. 2. Hyperlipidemia. 3. CAD complicated with congestive heart failure. 4. Diabetes. 5. End-stage renal disease, on hemodialysis TTS. 6. Recurrent admission for symptomatic anemia. Workup including EGD and colonoscopy did not conclude any active bleed. Past Surgical History: Includes EGD, colonoscopy, AV fistula creation, angiogram. Social History: Denied smoking, denied drinking, denied drugs abuse. assisted resident. Review of Systems: Head and Neck: No red eye. No ear pain. GI: No nausea. No vomiting. : No polyuria. No dysuria. No hematuria. Statistics Professor: Not applicable. Respiratory: Has shortness of breath. Cardiovascular: Has leg swelling. Has orthopnea. Endocrine: No polydipsia. Skin: No rash. Neuro: Has neuropathy. Musculoskeletal: Generalized fatigue. Physical Examination: General: When I saw the patient; the patient lying in bed. Vital Signs: Blood pressure of 119/60, pulse of 57, afebrile. Chest: Crackles bilateral. Heart: S1, S2. Systolic murmur. Abdomen: Mild tenderness. No guarding or rebound. Extremities: +1 edema. Neurologic: Alert. No focality. Laboratory Data: WBC 7, H and H of 5.9/17. Sodium 129, potassium 4.7, bicarb 29, , glucose is 343. Calcium 9.9. Current Medications: The patient on still in the ER, plan for transfusion. Assessment And Plan: 1. End-stage renal disease, over volume with abdominal pain with symptomatic anemia. We will arrange for dialysis today with transfusion and we will challenge the patient. Then, we will arrange for another dialysis tomorrow. 2. Hypertension, controlled. We will utilize blood pressure for more ultrafiltration. 3. Anemia of chronic kidney disease. Resume LUANNE. Given the symptomatic anemia, I am going to go ahead and give DDAVP to control any insensible bleed. We will resume Retacrit. 4. Gastrointestinal bleed as by primary. 5. Congestive heart failure with over volume. We will challenge the patient today and tomorrow and we will follow up. 6. Secondary hyperparathyroidism. We will follow up lab. 7. Diabetes as by primary. Thank you, Dr. Lane for allowing us to participate in the care of your patient. Time spent examining the patient [id number], reviewing data, lab and radiology, placing order, discussing the case with the patient, discussing the case with the user experience team lead including nurse more than 65 minutes VISHAL Voice ID: [id number] Report ID: [id number] MANJINDER
[2022-09-10] MEDS ORDERED: HEPARIN 5000 UNIT/ML 1 ML VIAL SQ SCH (17:00)
[2022-09-10 18:02] VITALS: BMI 23.1
[2022-09-10] MEDS ORDERED: NA CHLORIDE 0.9% 250 ML ONE (19:46)
[2022-09-10] MEDS ORDERED: NA CHLORIDE 0.9% 250 ML IV SCH (20:00)
[2022-09-10] MEDS: EPOETIN ALFA 10,000 UNIT/ML VIAL IV SCH (21:00)
[2022-09-10] MEDS ORDERED: DESMOPRESSIN 4 MCG/ML AMP IV SCH (21:00)
[2022-09-10] MEDS: ATORVASTATIN 40 MG TAB PO SCH (22:48)
[2022-09-10] MEDS: DOCUSATE NA 100 MG CAP PO SCH (22:48)
[2022-09-10 23:38] LABS: Hematocrit 24.8 % (39.6-49.0)
[2022-09-11] MEDS: ACETAMINOPHEN 325 MG TABLET PO PRN ×2 (03:08→17:15)
[2022-09-11 06:48] LABS: Absolute Lymphocytes (CBC) 0.7 K/uL (0.7-4.9); Hematocrit 22.6 % (39.6-49.0); Lymphocytes % 9.4 % (15.3-44.8); MCV 86.3 fL (80-100); MPV 7.1 fL (7.6-11.3); RBC Red Blood Cell Count 2.62 M/uL (4.33-5.43)
[2022-09-11 07:03] LABS: Potassium 3.8 mEq/L (3.5-5.1)
--- NOTE | 2022-09-11 07:21 | P.PN ---
Date of Service: 09/11/22 Subjective: Not feeling good today due to constipation / passing hard stool, shortness of breath Constipated; reports he had small BM movement yesterday - "3 small marbles" in size reports chronic cough for months; irritation ROS: 10 point ROS as noted above, otherwise negative Physical Exam: GEN: Alert, oriented, NAD HEENT: Normal conjunctiva, sclera anicteric CV: Regular rate and rhythm, trace edema Pulm: Nonlabored respirations on 1L NC, +cough ABD: Soft, nontender, nondistended Neuro: Normal speech, normal affect vitals reviewed Problem List: Acute on chronic anemia of chronic kidney disease volume overload, CHF, diastolic; acute ESRD on dialysis Type 2 diabetes insulin-dependent with hyperglycemia Cholelithiasis Constipation COPD Chronic A-fib Hypertension Hyperlipidemia Acute on chronic anemia of chronic disease hgb was 5.9 yesterday, now 7.7 2 units PRBC transfusing with dialysis. Previous EGD in which no active source of bleeding, but noted duodenal angioectasias, gastritis pt has moderate hiatal hernia on CT no GI available, discussed with ED at time of admission and felt no active bleed review of EMR notes pt is to f/u with GI for pill endoscopy volume overload, CHF, diastolic; acute CXR 09/11 - Moderate CHF pattern; Right pleural effusion, mildly increased in size lasix dialysis back to back days to help . ESRD on HD MWF Nephrology consulted - recommends HD with blood transfusion Insulin Dependent Type 2 Diabetes with hyperglycemia continue mild sliding scale Continue home dose long acting when appropriate Carb control diet Constipation Continue Colace, Senna, Miralax PRN, as needed trial enema 09/[address] 09/10- Focal narrowing of the colon seen distal sigmoid colon. Large fat containing inguinal hernias, larger on the left. Recommend followup colonoscopy COPD on home O22.5 L Continue home O2 Chronic A-fib stable. Hold any anticoagulation given his severe anemia Hypertension Hold oral antihypertensives given anemia Call provider if BP is elevated Hyperlipidemia - Continue statin VTE: SCD Code: Full Dispo: Home ~24 hours
[2022-09-11] MEDS: INSULIN -REGULAR HUMAN 50 UNIT/0.5 ML ML SQ SCH ×4 (07:30→21:00)
[2022-09-11 07:46] LABS: Albumin 2.6 g/dL (3.4-5.0); Bilirubin Direct 0.9 mg/dL (0-0.2); Bilirubin Total 1.5 mg/dL (0.2-1.0); Protein, Total 6.4 g/dL (6.4-8.2)
[2022-09-11] MEDS ORDERED: INSULIN GLARGINE 100 UNIT/ML SQ SCH (09:00)
[2022-09-11] MEDS: DOCUSATE NA 100 MG CAP PO SCH ×2 (09:38→22:10)
[2022-09-11] MEDS: INSULIN GLARGINE 100 UNIT/ML SQ SCH (09:38)
[2022-09-11] MEDS: PANTOPRAZOLE 40MG TABLET PO SCH (09:41)
--- NOTE | 2022-09-11 11:33 | RAD REPORT ---
EXAM DESCRIPTION: RAD - Chest Single View - 09/11/2022 11:12 am CLINICAL HISTORY: eval effusions Chest pain. COMPARISON: Chest Single View dated 08/20/2022; Chest Pa And Lat (2 Views) dated 06/16/2022; Chest Sin gle View dated 06/14/2022; Chest Single View dated 05/27/2022 FINDINGS: Portable technique limits examination quality. Moderate bilateral pulmonary opacities are present, greater on the right. Right pleural effusion is p resent, which has increased in size since comparative study mildly. Heart size is moderately enlarged .Aortic atherosclerosis. IMPRESSION: Moderate CHF pattern. Right pleural effusion is present, which has mildly increased in s ize.
[2022-09-11] MEDS: NEPRO SHAKE 237 ML CAN PO SCH (14:00)
--- NOTE | 2022-09-11 14:44 | P.PN ---
Subjective Date of Service: 09/11/22 Primary Care Provider: Tong Chief Complaint: Anemia in chronic kidney disease, ESRD Subjective: Other (received HD today) Physical Examination - Vital Signs Temperature: 98.4 F Blood Pressure: 117/63 Pulse: 99 Respirations: 22 Pulse Ox (%): 96 - Physical Exam General: Other (chronically ill-appearing) HEENT: Atraumatic, Normocephalic Neck: Supple, JVD not distended Respiratory: Other (symmetric chest expansion) Cardiovascular: No rubs, No murmurs Gastrointestinal: Soft and benign, No guarding Musculoskeletal: No clubbing Integumentary: No warmth Neurological: Normal tone Urinary: Other (no bladder distention) External genitalia: Deferred Rectal: Deferred - Studies Laboratory Data (last 24 hrs) 09/10/22 13:12: WBC 7.00, Hgb 5.9 L*, Hct 17.2 L, Plt Count 286 Assessment And Plan - Plan 1. ESRD on outpt HD at [facility]. HD received yesterday & today. Cont HD [facility] sked. 2. Hypertension, controlled. continue current medication regimen. Initially as above. 3. Anemia of chronic kidney disease. LUANNE. 4. Gastrointestinal bleed. Per other services. 5. Congestive heart failure with volume overload. HD as above. 6. Secondary hyperparathyroidism. We will follow up lab. 7. Diabetes as by primary.
[2022-09-11] MEDS: carvediloL 12.5 MG TAB PO SCH (18:07)
[2022-09-11] MEDS ORDERED: MINERAL OIL ENEMA 135 ML BTL PR ONE (19:00)
[2022-09-11] MEDS: ATORVASTATIN 40 MG TAB PO SCH (22:05)
[2022-09-12 06:24] LABS: Hematocrit 22.7 % (39.6-49.0); Lymphocytes % 10.8 % (15.3-44.8); MCV 86.2 fL (80-100); MPV 6.7 fL (7.6-11.3); RBC Red Blood Cell Count 2.63 M/uL (4.33-5.43)
[2022-09-12 06:39] LABS: Magnesium 1.9 mg/dL (1.6-2.4); Potassium 3.9 mEq/L (3.5-5.1)
--- NOTE | 2022-09-12 07:14 | P.PN ---
Date of Service: 09/12/22 Subjective: feeling alright today good size BM yesterday; felt some relief but still in abdominal pain minimal appetite; still has sensation of food getting stuck in throat when eating no new problems ROS: 10 point ROS as noted above, otherwise negative Physical Exam: GEN: Alert, oriented, NAD HEENT: Normal conjunctiva, sclera anicteric CV: Regular rate and rhythm, trace edema Pulm: Nonlabored respirations on 1L NC, +cough ABD: Soft, nontender, nondistended Neuro: Normal speech, normal affect vitals reviewed Problem List: Acute on chronic anemia of chronic kidney disease volume overload, CHF, diastolic; acute ESRD on dialysis Type 2 diabetes insulin-dependent with hyperglycemia Cholelithiasis Constipation COPD Chronic A-fib Hypertension Hyperlipidemia Acute on chronic anemia of chronic disease hgb was 5.9 yesterday, now 7.7 2 units PRBC transfusing with dialysis. Previous EGD in which no active source of bleeding, but noted duodenal angioectasias, gastritis pt has moderate hiatal hernia on CT no GI available, discussed with ED at time of admission and felt no active bleed review of EMR notes pt is to f/u with GI for pill endoscopy volume overload, CHF, diastolic; acute CXR 09/11 - Moderate CHF pattern; Right pleural effusion, mildly increased in size CXR 09/12 - mildly worsened right pleural effusion since yesterday; background edema continue lasix dialysis back to back days to help . ESRD on HD MWF Nephrology consulted - recommends HD with blood transfusion Insulin Dependent Type 2 Diabetes with hyperglycemia continue mild sliding scale Continue home dose long acting when appropriate Carb control diet Constipation Continue Colace, Senna, as needed start enema 09/12 start Miralax 09/[address] 09/10- Focal narrowing of the colon seen distal sigmoid colon. Large fat containing inguinal hernias, larger on the left. Recommend followup colonoscopy COPD on home O22.5 L Continue home O2 Chronic A-fib stable. Hold any anticoagulation given his severe anemia Hyperlipidemia - Continue statin VTE: SCD Code: Full Dispo: Home ~24 hours
[2022-09-12] MEDS: INSULIN -REGULAR HUMAN 50 UNIT/0.5 ML ML SQ SCH ×4 (07:30→21:00)
[2022-09-12] MEDS: NEPRO SHAKE 237 ML CAN PO SCH (09:00)
[2022-09-12] MEDS ORDERED: POTASSIUM CL SA 10 MEQ TAB PO ONE (09:00)
[2022-09-12] MEDS: PANTOPRAZOLE 40MG TABLET PO SCH (09:18)
[2022-09-12] MEDS: INSULIN GLARGINE 100 UNIT/ML SQ SCH (09:18)
[2022-09-12] MEDS: DOCUSATE NA 100 MG CAP PO SCH ×2 (09:18→20:29)
[2022-09-12] MEDS: carvediloL 12.5 MG TAB PO SCH ×2 (09:18→16:25)
--- NOTE | 2022-09-12 09:25 | RAD REPORT ---
EXAM DESCRIPTION: RAD - Chest Single View - 09/12/2022 9:12 am CLINICAL HISTORY: f/u R effusion, pulm edema COMPARISON: Chest Single View dated 09/11/2022; Chest Single View dated 08/20/2022; Chest Pa And Lat ( 2 Views) dated 06/16/2022; Chest Single View dated 06/14/2022; Abdomen Pelvis Wo Contrast dated 2022 FINDINGS: Lines: None. Lungs: Decrease in lung volumes in the right lobe likely secondary to an enlarging pleural effusion . Diffuse prominence of the pulmonary interstitium. Pleural: Moderate right pleural effusion. Cardiac: Cardiomegaly. Mediastinum: Within normal limits. Bones: No acute fractures. Remote left clavicle fracture. Other: None IMPRESSION: Moderate right pleural effusion which has mildly increased in size since 09/11/2022. [place]ore kground of edema.
[2022-09-12] MEDS ORDERED: POLYETHYL GLY 3350 17 GM/DOSE PO ONE (13:30)
[2022-09-12] MEDS ORDERED: MINERAL OIL ENEMA 135 ML BTL PR ONE (14:00)
[2022-09-12] MEDS: ACETAMINOPHEN 325 MG TABLET PO PRN (16:26)
--- NOTE | 2022-09-12 19:55 | PN ---
Date of Progress Note: 09/12/2022 Chief Complaint: End-stage renal disease. Subjective: The patient received dialysis yesterday. The patient has multiple medical problems. He presented to the hospital because of generalized weakness and severe anemia. Review of Systems: Denies fever or chills. Physical Examination: Lungs: Clear to auscultation bilaterally. Heart: S1, S2. Abdomen: Soft. Extremities: No edema. Impression And Plan: 1.End-stage renal disease, on hemodialysis. The patient received dialysis yesterday. Continue dial ysis on Wednesday, Wednesday, and Wednesday. 2.Hypertension, controlled. Continue current medication regimen. 3.Anemia of chronic kidney disease. Continue LUANNE. The patient will have CBC done tomorrow. We richard l check iron study. 4.Gastrointestinal bleeding per primary services. 5.Congestive heart failure with volume overload. The patient received dialysis and ultrafiltration was done to control volemia. Continue low-sodium diet and p.o. fluid restriction. 6.Secondary hyperparathyroidism. Monitor phosphorus level. EB/MODL Voice ID: [id number] Report ID: [id number]
[2022-09-12] MEDS: ATORVASTATIN 40 MG TAB PO SCH (20:29)
[2022-09-12] MEDS ORDERED: PIPER TAZO 2.25 GM in NA CHLORIDE 0.9% 50 ML IV SCH (21:00)
[2022-09-13 03:44] LABS: Lymphocytes % 11.8 % (15.3-44.8); MCV 86.2 fL (80-100); MPV 7.1 fL (7.6-11.3); RBC Red Blood Cell Count 2.55 M/uL (4.33-5.43)
[2022-09-13 04:13] LABS: Potassium 4.7 mEq/L (3.5-5.1)
--- NOTE | 2022-09-13 07:03 | P.PN ---
Date of Service: 09/13/22 Subjective: Feeling alright today; thinks hes improving abdominal pain decreased Breathing is easier today; almost back to normal. cough remains 2 BM overnight/this morning Reports he has had some ongoing trouble swallowing for months ROS: 10 point ROS as noted above, otherwise negative Physical Exam: GEN: Alert, oriented, NAD HEENT: Normal conjunctiva, sclera anicteric CV: Regular rate and rhythm, trace edema Pulm: Nonlabored respirations on 2L NC, +cough ABD: Soft, nontender, nondistended Neuro: Normal speech, normal affect vitals reviewed Problem List: Acute on chronic anemia of chronic kidney disease volume overload, CHF, diastolic; acute Concern for Aspiration ESRD on dialysis Type 2 diabetes insulin-dependent with hyperglycemia Cholelithiasis Constipation COPD Chronic A-fib Hypertension Hyperlipidemia Acute on chronic anemia of chronic disease hgb was 5.9 yesterday, now 7.7 2 units PRBC transfusing with dialysis. Previous EGD in which no active source of bleeding, but noted duodenal a ngioectasias, gastritis pt has moderate hiatal hernia on CT review of EMR notes pt is to f/u with GI for pill endoscopy volume overload, CHF, diastolic; acute Concern for Aspiration pneumonia CXR 09/11 - Moderate CHF pattern; Right pleural effusion, mildly increased in size CXR 09/12 - mildly worsened right pleural effusion since yesterday; background edema CT ordered 09/13, eval effusion / for aspiration pneumonia pulm consulted [facility] consulted continue lasix dialysis back to back fri/sat to help unable to r/o pneumonia at this time, pt has persistant cough, +low grade temps (100.4) 09/11 NPO Started antibiotics 09/12 . ESRD on HD MWF Nephrology consulted - recommends HD with blood transfusion Insulin Dependent Type 2 Diabetes with hyperglycemia continue mild sliding scale Continue home dose long acting when appropriate Constipation Continue Colace, Senna, as needed start enema 09/12 start Miralax 09/[address] 09/10- Focal narrowing of the colon seen distal sigmoid colon. Large fat containing inguinal hernias, larger on the left. Recommend followup colonoscopy COPD on home O22.5 L Continue home O2 Chronic A-fib stable. Hold any anticoagulation given his severe anemia Hyperlipidemia - Continue statin VTE: SCD Code: Full Dispo: Home ~48 hours
[2022-09-13] MEDS: PANTOPRAZOLE 40MG TABLET PO SCH (08:54)
[2022-09-13] MEDS: DOCUSATE NA 100 MG CAP PO SCH ×2 (08:54→21:00)
[2022-09-13] MEDS: carvediloL 12.5 MG TAB PO SCH ×2 (08:54→16:48)
[2022-09-13] MEDS: INSULIN -REGULAR HUMAN 50 UNIT/0.5 ML ML SQ SCH ×4 (08:55→21:00)
[2022-09-13] MEDS: INSULIN GLARGINE 100 UNIT/ML SQ SCH (08:55)
[2022-09-13] MEDS: NEPRO SHAKE 237 ML CAN PO SCH (08:55)
[2022-09-13] MEDS: ACETAMINOPHEN 325 MG TABLET PO PRN (11:32)
[2022-09-13] MEDS: PIPER TAZO 3.375 GM in NA CHLORIDE 0.9% 100 ML IV SCH ×2 (11:32→21:58)
[2022-09-13 17:03] LABS: Ferritin 4072.7 ng/mL (26-388)
[2022-09-13] MEDS: ATORVASTATIN 40 MG TAB PO SCH (21:00)
--- NOTE | 2022-09-13 21:18 | RAD REPORT ---
EXAM DESCRIPTION: CT - Thorax Wo Con - 09/13/2022 7:53 pm CLINICAL HISTORY: eval effusion, suspect aspiration pneumonia COMPARISON: Chest Abd Pelvis Wo Con dated 06/16/2022; Thorax Wo Con dated 05/25/2022; Thorax Wo Con d ated 01/21/2022; Thorax Wo Con dated 01/09/2022; Abdomen Pelvis Wo Contrast dated 09/10/2022 TECHNIQUE: Axial thin cut images of the chest were obtained without IV contrast. Multiplanar reforma ts were generated and reviewed. All CT scans are performed using dose optimization technique as appropriate and may include automated exposure control or mA/KV adjustment according to patient size. FINDINGS: No mass in the lung parenchyma. Scattered peripheral regions of tree-in-bud opacity most p rominent in the anterior left upper lobe, raise concern for a mild infectious/ inflammatory process. Moderate right pleural effusion, with underlying new segmental right upper lobe airspace opacificatio n with air bronchogram. Additional scattered central predominant right lung ground-glass opacities. N o pneumothorax. Moderate cardiomegaly. Moderate-sized hiatal hernia. Trace pericardial effusion. Dense vascular calci fications at the aortic arch and proximal coronary arteries. No abnormal mediastinal or hilar masses or lymphadenopathy seen. No significant aortic or pulmonary a rtery findings. Assessment is limited in the absence of IV contrast. No chest wall mass or abnormal axillary lymphadenopathy. Evaluation of the solid abdominal structures reveals no suspicious findings. Numerous healing right rib fractures. Stable moderate L1 vertebral body height loss due to superior e ndplate compression deformity. Diffuse idiopathic skeletal hyperostosis along the mid to distal thora cic spine. IMPRESSION: Stable moderate right pleural effusion. New segmental right upper lobe airspace opacific ation with air bronchogram. Additional scattered central predominant right lung ground-glass opacitie s and left upper lobe peripheral tree-in-bud opacities. Findings may relate to superimposed or worsen ing pneumonia. Moderate cardiomegaly with trace pericardial effusion. Moderate-sized hiatal hernia. Numerous healing right rib fractures.
[2022-09-13] MEDS ORDERED: GLUCAGON 1 MG/VIAL IM PRN (22:56)
[2022-09-13] MEDS ORDERED: D50W 25 GM/50 ML SYRINGE IV PRN (22:56)
[2022-09-13] MEDS ORDERED: D10W 125 ML IV PRN (23:02)
--- NOTE | 2022-09-14 00:19 | PN ---
Date of Progress Note: 09/13/2022 Chief Complaint: End-stage renal disease, on hemodialysis. History Of Present Illness: The patient received dialysis on Wednesday. The patient has multiple medic al problems. He presented to the hospital because of generalized weakness and had severe anemia. He received blood transfusion. Hemoglobin improved appropriately. The patient had history of GI bleed ing and previous workup done with upper and lower GI. The patient is complaining of difficulty to sw allow foods and cough with eating and drinking fluids. Review of Systems: Denies fever, chills. Physical Examination: Lungs: Clear to auscultation bilaterally. Heart: S1, S2. Abdomen: Soft. Extremities: No edema. Impression And Plan: 1.End-stage renal disease. 2.Dialysis tomorrow. 3.Hypertension, controlled. Continue current treatment. 4.Anemia of chronic disease. Continue erythropoiesis-stimulating agent. Iron study did not show ir on deficiency. 5.Gastrointestinal bleeding. 6.Congestive heart failure. Monitor volemia status. Continue ultrafiltration with dialysis and con tinue low-sodium diet. 7.Secondary hyperparathyroidism. Monitor phosphorus level. 8.Difficulty to swallow. The patient will have further workup as ordered by primary team. CHRISTINA/MICHELEL Voice ID: [id number] Report ID: [id number]
[2022-09-14] MEDS: INSULIN -REGULAR HUMAN 50 UNIT/0.5 ML ML SQ SCH ×4 (00:20→21:02)
[2022-09-14 03:39] LABS: Hematocrit 21.8 % (39.6-49.0); Lymphocytes % 16.4 % (15.3-44.8); MCV 86.9 fL (80-100); MPV 6.9 fL (7.6-11.3); RBC Red Blood Cell Count 2.51 M/uL (4.33-5.43)
--- NOTE | 2022-09-14 07:06 | P.PN ---
Date of Service: 09/14/22 Subjective: feeling alright today 2 BM overnight/this morning, +hungry/thirsty wet cough remains no acute events overnight ROS: 10 point ROS as noted above, otherwise negative Physical Exam: GEN: Alert, oriented, NAD HEENT: Normal conjunctiva, sclera anicteric CV: Regular rate and rhythm, trace edema Pulm: Nonlabored respirations on 2.5L NC, +cough ABD: Soft, nontender, nondistended Neuro: Normal speech, normal affect vitals reviewed Problem List: Acute on chronic anemia of chronic kidney disease volume overload, CHF, diastolic; acute Concern for Aspiration ESRD on dialysis Type 2 diabetes insulin-dependent with hyperglycemia Cholelithiasis Constipation COPD Chronic A-fib Hypertension Hyperlipidemia Acute on chronic anemia of chronic disease hgb was 5.9 09/10, now 7.6 2 units PRBC transfusing with dialysis. Previous EGD in which no active source of bleeding, but noted duodenal angioectasias, gastritis pt has moderate hiatal hernia on CT review of EMR notes pt is to f/u with GI for pill endoscopy volume overload, CHF, diastolic; acute Concern for Aspiration pneumonia CXR 09/11 - Moderate CHF pattern; Right pleural effusion, mildly increased in size CXR 09/12 - mildly worsened right pleural effusion since yesterday; background edema CXR 09/14 - Free-flowing moderate right-sided pleural effusion CT 09/13 - Stable moderate right pleural effusion. New segmental right upper lobe airspace opacification with air bronchogram - Additional scattered central predominant right lung ground-glass opacities and left upper lobe peripheral tree-in-bud opacities pulm consulted [facility] consulted continue lasix dialysis back to back fri/sat to help unable to r/o pneumonia at this time, pt has persistant cough, +low grade temps (100.4) 09/11 may need thoracentesis NPO Started antibiotics 09/12 Speech Therapy . ESRD on HD MWF Nephrology consulted - recommends HD with blood transfusion Insulin Dependent Type 2 Diabetes with hyperglycemia continue mild sliding scale Continue home dose long acting when appropriate Constipation Continue Colace, Senna, as needed start enema 09/12 start Miralax 09/[address] 09/10- Focal narrowing of the colon seen distal sigmoid colon. Large fat containing inguinal hernias, larger on the left. Recommend followup colonoscopy COPD on home O22.5 L Continue home O2 Chronic A-fib stable. Hold any anticoagulation given his severe anemia Hyperlipidemia - Continue statin VTE: SCD Code: Full Dispo: Home ~48 hours
[2022-09-14] MEDS: PANTOPRAZOLE 40MG TABLET PO SCH (07:30)
[2022-09-14 07:42] LABS: Albumin 2.5 g/dL (3.4-5.0); Bilirubin Total 0.8 mg/dL (0.2-1.0); Magnesium 2.1 mg/dL (1.6-2.4); Phosphorus 3.2 mg/dL (2.5-4.9); Potassium 5.1 mEq/L (3.5-5.1); Protein, Total 6.4 g/dL (6.4-8.2)
[2022-09-14] MEDS: carvediloL 12.5 MG TAB PO SCH ×2 (08:00→17:29)
[2022-09-14] MEDS: DOCUSATE NA 100 MG CAP PO SCH ×2 (09:00→21:02)
[2022-09-14] MEDS: NEPRO SHAKE 237 ML CAN PO SCH (09:00)
[2022-09-14] MEDS: PIPER TAZO 3.375 GM in NA CHLORIDE 0.9% 100 ML IV SCH ×2 (10:37→21:03)
--- NOTE | 2022-09-14 11:20 | RAD REPORT ---
EXAM DESCRIPTION: RAD - Chest Lateral Decubitus - 09/14/2022 10:26 am CLINICAL HISTORY: eval effusion COMPARISON: Thorax Wo Con dated 09/13/2022 FINDINGS: Moderate pleural effusion on the right side which is layering. IMPRESSION: Free-flowing moderate right-sided pleural effusion.
[2022-09-14] MEDS: EPOETIN ALFA 10,000 UNIT/ML VIAL IV SCH (15:00)
[2022-09-14] MEDS: ATORVASTATIN 40 MG TAB PO SCH (21:02)
[2022-09-14 21:48] VITALS: O2SAT 94
[2022-09-15 05:34] LABS: Potassium 4.9 mEq/L (3.5-5.1)
[2022-09-15] MEDS: INSULIN -REGULAR HUMAN 50 UNIT/0.5 ML ML SQ SCH ×2 (07:30→11:30)
--- NOTE | 2022-09-15 07:35 | PN ---
Date of Progress Note: 09/14/2022 Chief Complaint: End-stage renal disease, on hemodialysis. Subjective: The patient underwent dialysis today. Procedure was well tolerated. Patient came [facility] because of weakness and he has history of severe anemia. He received blood transfusion. Hemoglobin improved adequately. The patient has history of GI bleeding and previous workup was done with upper and lower GI and he developed a cough with eating and drinking fluids. The patient compla ins of difficulty to swallow food. Review of Systems: Denies fever, chills. Physical Examination: Lungs: Clear to auscultation bilaterally. Heart: S1, S2. Abdomen: Soft. Extremities: No edema. Impression And Plan: 1.End-stage renal disease. Dialysis was done today. Procedure was well tolerated. Monitor blood p ressure closely during dialysis. 2.Hypertension, controlled. 3.Anemia due to chronic kidney disease. Continue LUANNE. 4.Gastrointestinal bleeding per primary team. 5.Congestive heart failure. Monitor volume status. Continue ultrafiltration, low-sodium diet. Rosy joaquin currently is n.p.o. and he is awaiting Speech Therapy evaluation. 6.Secondary hyperparathyroidism. Monitor phosphorus level. EB/MODL Voice ID: [id number] Report ID: [id number]
[2022-09-15] MEDS: PIPER TAZO 3.375 GM in NA CHLORIDE 0.9% 100 ML IV SCH (08:04)
[2022-09-15] MEDS: DOCUSATE NA 100 MG CAP PO SCH (08:04)
[2022-09-15] MEDS: PANTOPRAZOLE 40MG TABLET PO SCH (08:04)
[2022-09-15] MEDS: carvediloL 12.5 MG TAB PO SCH (08:04)
[2022-09-15] MEDS: NEPRO SHAKE 237 ML CAN PO SCH (08:05)
[2022-09-15 10:10] VITALS: BP 157/69; TEMP 97.9
--- NOTE | 2022-09-15 13:31 | P.PN ---
Subjective Date of Service: 09/15/22 Primary Care Provider: Tong Chief Complaint: Anemia in chronic kidney disease, ESRD Pt with ESRD , admitted for uncontrolled BP today feels better plan to discharge today can be disharge from nephrology point of view to resume HD tomorrow as an OP Physical exam General: AAOx3, looks chronically ill CHEST; CTAB, no wheezes or rales HEART : RRR. Normal S1,2 no murmur or rub Abd: soft, Nt Ext: no edema Skin : No rash # ESRD on outpt HD on MWF HD MWF while in house renal dose meds # Anemia Retacrit SQ with dialysis # Renal osteodystrophy Monitor serum Ca & Phos # Htn Cont current meds Low link diet # DM2 SS #Chronic Rt pleural effusion thoracentecis prn Total time spent 45 minutes including documentation, reviewing labs and placing orders Physical Examination - Vital Signs Temperature: 97.9 F Blood Pressure: 157/69 Pulse: 58 Respirations: 22 Pulse Ox (%): 100
== END 2022-09-15 14:45 | disposition home or self-care (01) | DRG 291 ==
LOC: ER 12:06 → ERHOLD 15:29 → 2ND 17:07
PROVIDERS: ADMIT Hospitalist; ATTEND Hospitalist
PROC: 5A1D70Z Performance of Urinary Filtration, Intermittent, Less than 6 Hours Per Day (ICD-10-PCS; principal; 2022-09-10)
PROC: 30233N1 Transfusion of Nonautologous Red Blood Cells into Peripheral Vein, Percutaneous Approach (ICD-10-PCS; 2022-09-10)
PROC: 30233P1 Transfusion of Nonautologous Frozen Red Cells into Peripheral Vein, Percutaneous Approach (ICD-10-PCS; 2022-09-10)
DX: I13.2 Hypertensive heart and chronic kidney disease with heart failure and with stage 5 chronic kidney disease, or end stage renal disease (principal); I50.31 Acute diastolic (congestive) heart failure; N18.6 End stage renal disease; E87.1 Hypo-osmolality and hyponatremia; I48.20 Chronic atrial fibrillation, unspecified; K92.2 Gastrointestinal hemorrhage, unspecified; N25.81 Secondary hyperparathyroidism of renal origin; E11.22 Type 2 diabetes mellitus with diabetic chronic kidney disease; E11.40 Type 2 diabetes mellitus with diabetic neuropathy, unspecified; E11.65 Type 2 diabetes mellitus with hyperglycemia; D63.1 Anemia in chronic kidney disease; J44.9 Chronic obstructive pulmonary disease, unspecified; E78.5 Hyperlipidemia, unspecified; K59.00 Constipation, unspecified; K80.20 Calculus of gallbladder without cholecystitis without obstruction; I25.10 Atherosclerotic heart disease of native coronary artery without angina pectoris; Z88.5 Allergy status to narcotic agent; Z88.8 Allergy status to other drugs, medicaments and biological substances; Z99.2 Dependence on renal dialysis; Z79.4 Long term (current) use of insulin; Z99.81 Dependence on supplemental oxygen; Z89.422 Acquired absence of other left toe(s)
CPT/HCPCS: 36415; 36430; 71045; 71046; 71250; 74176; 80048; 80053; 80076; 82010; 82728; 82947; 83540; 83690; 83735; 84100; 84466; 85014; 85018; 85025; 86850; 86900; 86901; 86920; 90935; 92610; 99284; J1815; J2543; J2597; J7050; P9016

== ENCOUNTER 2022-09-29 18:14 | Inpatient (IN) | payer OTHER, BC ==
--- OUTSIDE RECORDS SUMMARY | 2022-09-29 18:27 | XMS REPORT | Continuity of Care Document ---
:1945 Author Organization [facility] t Address [address] [place] [address] Care Team Providers Name Role Phone Naveed Fortune Attending Clinician Unavailable [id number] Attending Clinician Unavailable Carey Long Attending Clinician CAREY LONG Attending Clinician Unavailable ZACHARY MANCILLA Attending Clinician Unavailable Zachary Mancilla Attending Clinician Damon Velazquez Attending Clinician Pepper Crawford Attending Clinician PEPPER CRAWFORD Attending Clinician Unavailable DAMON VELAZQUEZ Attending Clinician Unavailable CHILANGO ARMSTRONG NATASHA Attending Clinician Unavailable [id number] Admitting Clinician Unavailable ZACHARY MANCILLA Admitting Clinician Unavailable Zachary Mancilla Admitting Clinician Damon Velazquez Admitting Clinician DAMON VELAZQUEZ Admitting Clinician Unavailable CHILANGO ARMSTRONG NATASHA Admitting Clinician Unavailable Payers Payer Name Policy Type Policy Number Effective Date Expiration Date S ource MEDICARE PART A [id number] 2011 AND B 00:00:00 Blue [employer] Blue [id number] 2014 [facility] Shield of [place] 00:00:00 - [facility] MCR [id number] BCTX BCTI [id number] MEDICARE MB [id number] 2011 [facility] NOVITAS 00:00:00 - [facility] MEDICARE MB [id number] 2011 [facility] NOVITAS 00:00:00 - [facility] MEDICARE MB [id number] 2011 [facility] NOVITAS 00:00:00 - [facility] Problems Condition Condition Condition Status Onset Resolution Last Treating Co mments Source Name Details Category Date Date Treatment Clinician Date LOW LOW Diagnosis Active 2022-01-02 Mem oria HEMOGLOBIN HEMOGLOBIN 01-02 12:51:00 l COUNT/ COUNT/ 00:00: [place] NEEDING NEEDING 00 DIALYZED DIALYZED Active 01/02/2022 [facility] [place] PNA DUE TO PNA DUE Diagnosis Active 2022-08-31 Memoria COVID-19 TO 12-14 21:48:00 l VIRUS COVID-19 00:00: [place] VIRUS 00 Active 12/14/2021 [facility] [place] DIFFICULTY DIFFICULT Diagnosis Active 2021-12-14 Tena BREATHING Y 12-14 17:56:00 l BREATHING 00:00: [place] Active 00 12/14/2021 [facility] [place] ABNORNAL ABNORNAL Diagnosis Active 2021-12-16 [facility] LAB LAB Active 12-03 05:50:00 l 12/03/2021 08:00: Thomas moyer [place] [id number] [place] ANEMIA, ANEMIA, Diagnosis Active 2021-12-16 Memoria COVID-19 COVID-19 11-24 05:50:00 l Active 00:00: [place] 11/24/2021 [facility] [place] LOW LOW Diagnosis Active 2021-11-24 Mem oria HEMOGOBLIN HEMOGOBLIN 11-24 23:20:00 l Active 00:00: [place] 11/24/2021 [facility] [place] [id number] Other Problem Common obesity Spirit due to - [facility] excess [facility] [id number] Metabolic Problem Com mon syndrome Spirit - [facility] [id number] Body mass Problem Com mon index Spirit [BMI] - [facility] 30.0-30.9, adult 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 [id number] 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 - [facility] [id number] GERD Problem Common without Spirit esophagiti - [facility] s [facility] [id number] Type 2 Problem Common diabetes Spirit mellitus - [facility] with [facility] [id number] Mixed Problem Common hyperlipid Spirit emia - CHI [facility] [id number] Noncomplia Problem Co mmon nce of Spirit patient - [facility] with [facility] Chronic +5th digit Problem Comm on atrial eff Spirit fibrillati 02/28/19*Ch - CHI on ronic St (disorder) atrial kes fibrillati Medica l on Center [id number] 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 - [facility] with Located within [facility] disease [facility] Chronic Chronic Problem Common obstructiv obstructiv Sp jerome e lung e - [facility] d [facility] Center type [id number] Heart Problem Common failure, Spirit congestive - [facility]I , etiology [facility] [id number] Constipati Problem Com mon on, Spirit [facility]specifie - [facility] Medical [place] [id number] Memory Problem Common impairment Spirit of gradual - CHI onset [facility] [id number] HTN, goal Problem Comm on below Spirit 130/80 - CHI [facility] [id number] Anemia of Problem Com mon chronic Spirit disease - [facility] 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 [facility] [id number] Benign Problem Common prostatic Spirit hyperplasi - CHI a without [facility] urinary Medical tract Center symptoms Hypertroph Obstructiv Problem C ommon ic e Spirit 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 [facility] Hypertensi Hypertensi Problem C ommon ve heart ve chronic Spir it AND kidney - CHI chronic disease St kidney with stage [facility] disease 5 chronic Medica l stage 5 kidney Center (disorder) disease or end stage renal disease Dependence Dependenc Problem Active 2022-01-04 Memoria on e on 23:08:30 l hemodialys hemodialys He rmann is due to is due to end stage end stage renal renal disease disease (finding) (finding) Active Problem 01/04/2022 [facility] End stage End stage Problem Active 2022-01-04 Memoria renal renal 23:08:30 l failure on failure on He rmann dialysis dialysis (disorder) (disorder) Active Problem 01/04/2022 [facility] COVID-19 COVID-19 Diagnosis Active 2022-08-31 Memoria Active 21:48:00 l [facility] [place] Celeste ANEMIA, ANEMIA, Diagnosis Active 2021-12-16 Memoria UNSPECIFIE UNSPECIFIE 05:50:00 l D D Active [place] Celeste History of Past Illness Condition Condition Condition Status Onset Resolution Last Treating Co mments Source Name Details Category Date Date Treatment Clinician Date Anemia, Anemia, Problem 2021-12-06 2021-12-06 Memoria unspecifie unspecifie 12-04 21:45:40 21:45:40 l d d 06:34: [place] 12/04/2021 00 12/06/2021 [facility] Allergies, Adverse Reactions, Alerts Allergy Allergy Status Severity Reaction(s) Onset Inactive Treating Comm ents Source Name Type Date Date Clinician codeine codeine Active Memoria l [place] gabapent gabapent Active Memori a in in l [place] gabapent gabapent Active Unknown Commo n in in [facility] codeine codeine Active Unknown Common [facility] Social History Social Habit Start Date Stop Date Quantity Comments Source History of Tobacco Use Co mmon [facility] Sex Assigned At Com mon [facility] Smoking Status Start Date Stop Date Source Social History 2021-12-04 02:37:37 2021-12-04 02:37:37 Kimber Celeste Medications Ordered Filled Start Stop Current Ordering [...] 7-20 not crush l 14:00: or chew. [place] 00 (Same As: Ecotrin) Procardia No Notes: Memori a XL 30 mg 7-20 (Same as: l oral 14:00: Adalat CC, [place] tablet, 00 Procardia extended XL) Give release on empty stomach. Take 1 hour before or 2 hours after meal; "Avoid grapefruit and grapefruit juice". Do not crush Epogen No Notes: Memoria (ESRD) 7-20 Same as: l 14:00: Retacrit) [place] 00 epoetin shannon-epbx 25988 unit/1 ml VL. For dialysis use only. WASTE: F/P - Red; E Red MEDICATION WASTE Product Size: 98845 unit Product Wasted: ___ unit aspirin No Notes: Do Memor ia 7-20 not crush l 14:00: or chew. [place] 00 (Same As: Ecotrin) Procardia No Notes: Memori a XL 30 mg 7-20 (Same as: l oral 14:00: Adalat CC, [place] tablet, 00 Procardia extended XL) Give release on empty stomach. Take 1 hour before or 2 hours after meal; "Avoid grapefruit and grapefruit juice". Do not crush Epogen No Notes: Memoria (ESRD) 7-20 Same as: l 14:00: Retacrit) [place] 00 epoetin shannon-epbx 11470 unit/1 ml VL. For dialysis use only. WASTE: F/P - Red; E Red MEDICATION WASTE Product Size: 60529 unit Product Wasted: ___ unit Lipitor No Notes: Memoria 7-20 (Same as: l 02:00: Lipitor) [place] 00 Lipitor No Notes: Memoria 7-20 (Same as: l 02:00: Lipitor) [place] 00 cefdinir No Notes: Memoria 300 mg oral 7-19 (Same As: l capsule 22:00: Omnicef) Thomas n 00 cefdinir No Notes: Memoria 300 mg oral 7-19 (Same As: l capsule 22:00: Omnicef) Thomas n 00 dexamethaso 2022-0 Yes 6 mg = 1 Me moria ne 6 mg 7-19 tab, PO, l oral tablet 21:19: Daily, X 3 [place] 00 day, # 3 tab, 0 Refill(s), Pharmacy: [facility] #[id number], 177.8, cm, 12/14/21 22:03:00 CDT, Height, 95.2, kg, 12/14/21 22:03:00 CDT, Weight dexamethaso 2021-0 Yes 6 mg = 1 Me moria ne 6 mg 7-19 tab, PO, l oral tablet 21:19: Daily, X 3 [place] day, # 3 tab, 0 Refill(s), Pharmacy: [facility] #[id number], 177.8, cm, 12/14/21 22:03:00 CDT, Height, 95.2, kg, 12/14/21 22:03:00 CDT, Weight guaiFENesin 0 No 600 mg = 1 Memoria 600 mg oral 7-19 tab, PO, l tablet, 20:31: Q12H, # 20 Herm silas extended 00 tab, 0 release Refill(s) guaiFENesin 2021-0 No 600 mg = 1 Memoria 600 mg oral 7-19 tab, PO, l tablet, 20:31: Q12H, # 20 Herm silsa extended 00 tab, 0 release Refill(s) pregabalin 2021-0 Yes 50 mg = 1 Me moria 50 mg oral 7-19 cap, PO, l capsule 20:30: BID, # 60 Lauryn nn 00 cap, 1 Refill(s) pregabalin 2021-0 Yes 50 mg = 1 Me moria 50 mg oral 7-19 cap, PO, l capsule 20:30: BID, # 60 Lauryn nn 00 cap, 1 Refill(s) melatonin 3 2021-0 Yes 3 mg = 1 Me moria mg oral 7-19 tab, PO, l tablet 20:29: Bedtime, [place] 00 PRN for insomnia, # 14 tab, 0 Refill(s) melatonin 3 2021-0 Yes 3 mg = 1 Me moria mg oral 7-19 tab, PO, l tablet 20:29: Bedtime, [place] 00 PRN for insomnia, # 14 tab, 0 Refill(s) Colace 100 Yes 100 mg = 1 M emoria mg oral 7-19 cap, PO, l capsule 20:28: BID, PRN Thomas n 00 Constipati on, # 20 cap, 0 Refill(s) Colace 100 0 Yes 100 mg = 1 M emoria [...] l oral tablet 20:27: Q12H, # 60 [place] 00 tab, 0 Refill(s) bisacodyl 5 Yes 10 mg = 2 M emoria mg oral 7-19 tab, PO, l enteric 20:27: Daily, PRN Herm silas coated 00 Constipati tablet on, # 20 tab, 0 Refill(s) carvedilol Yes 12.5 mg = Me moria 12.5 mg 7-19 1 tab, PO, l oral tablet 20:27: Q12H, # 60 [place] 00 tab, 0 Refill(s) aspirin 81 0 Yes 81 mg = 1 Me moria mg tablet, 7-19 tab, PO, l enteric 20:26: Daily, # Thomas n coated 00 90 tab, 3 Refill(s) aspirin 81 0 Yes 81 mg = 1 Me moria mg tablet, 7-19 tab, PO, l enteric 20:26: Daily, # Thomas n coated 00 90 tab, 3 Refill(s) azithromyci No Notes: Heath bobo n 250 mg 7-19 Take 1 l oral tablet 19:00: hour Thomas n 00 before or 2 hours after meals. (Same As: Zithromax) azithromyci No Notes: Heath bobo n 250 mg 7-19 Take 1 l oral tablet 19:00: hour Thomas n 00 before or 2 hours after meals. (Same As: Zithromax) sevelamer No Notes: Memori a 12-16 Same as: l 13:00: Renvela [place] sevelamer No Notes: Memori a 12-16 Same as: l 13:00: Renvela [place] 00 albumin Yes Notes: Lot Heath bobo human 25% 12-16 #: l intravenous 02:33: [place] solution 00 ___ Mfg: (Same as: Plasbumin- 25) "blood product derivative " WASTE: F/P - Red; E -Red MEDICATION WASTE Product Size: 25 gm Product Wasted: ___ gm albumin Yes Notes: Lot Heath bobo human 25% 12-16 #: l intravenous 02:33: [place] solution 00 ___ Mfg: (Same as: Plasbumin- 25) "blood product derivative " WASTE: F/P - Red; E -Red MEDICATION WASTE Product Size: 25 gm Product Wasted: ___ gm azithromyci No Notes: Heath bobo n + Sodium 7-18 (Same As: l Chloride 19:00: Zithromax Herm silas 0.9% IV 250 00 IV) mL azithromyci No Notes: Heath bobo n + Sodium 7-18 (Same As: l Chloride 19:00: Zithromax Herm silas 0.9% IV 250 00 IV) mL dexamethaso No Notes: Heath bobo ne 7-18 Give with l 14:00: food. dexamethaso No Notes: Heath bobo ne 7-18 Give with l 14:00: food. albuterol-i No Notes: Heath bobo pratropium 7-18 Same as: l 13:00: Combivent [place] Respimat WASTE: Aerosol - Return to Pharmacy albuterol-i No Notes: Heath bobo pratropium 7-18 Same as: l 13:00: Combivent [place] 00 Respimat WASTE: Aerosol - Return to Pharmacy heparin No 5,000 Memoria 7-18 unit, l 05:00: Route: [place] 00 SUB-Q, Q8H, Dosing Weight 95.455, kg, Start date: 12/15/21 0:00:00 CDT, Stop date: 01/13/22 16:00:00 CDT heparin No 5,000 Memoria 7-18 unit, l 05:00: Route: [place] 00 SUB-Q, Q8H, Dosing Weight 95.455, kg, Start date: 12/15/21 0:00:00 CDT, Stop date: 01/13/22 16:00:00 CDT heparin No Notes: Memoria 7-18 porcine l 02:00: heparin [place] 00 heparin No Notes: Memoria 7-18 porcine l 02:00: heparin albuterol-i No Notes: Heath bobo pratropium 7-18 (Same as: l 2.5-0.5 mg 01:00: Duoneb) Herm silas inhalation 00 solution albuterol-i No Notes: Heath bobo pratropium 7-18 [...] Size: 1000 mg Product Wasted: ___ mg vancomycin No 2000 mg: Me moria + [...] IV 250 00 IV) mL cefepime + 2021-0 No Notes: Memor ia Sodium 7-18 (Same As: l Chloride 00:00: Maxipime) Herm silas 0.9% IV 50 00 mL MEDICATION WASTE Product Size: 1000 mg Product Wasted: ___ mg azithromyci No Notes: Heath bobo n + Sodium 7-18 (Same As: l Chloride 00:00: Zithromax Herm silas 0.9% IV 250 00 IV) mL cefepime + 2021-0 No Notes: Memor ia Sodium 7-18 (Same As: l Chloride 00:00: Maxipime) Herm silas 0.9% IV 50 00 mL MEDICATION WASTE Product Size: 1000 mg Product Wasted: ___ mg Dextrose No 125 mL, Memori a 10% in 12-14 Rate: 999 l Water IV 23:57: ml/hr, [place] 00 Infuse over: 0.1 hr, Route: IV, Total Volume: 125, Start date: 12/14/21 18:57:00 CDT, Duration: 30 day, Stop date: 01/13/22 18:56:00 CDT, PRN Blood Glucose Results, 0 Dextrose 2021-0 No 125 mL, Memori a 10% in 12-14 Rate: 999 l Water IV 23:57: ml/hr, [place] 00 Infuse over: 0.1 hr, Route: IV, Total Volume: 125, Start date: 12/14/21 18:57:00 CDT, Duration: 30 day, Stop date: 01/13/22 18:56:00 CDT, PRN Blood Glucose Results, 0 Dextrose 2021-0 No 250 mL, Memori a 10% in 12-14 Rate: 999 l Water IV 23:53: ml/hr, [place] Infuse over: 0.3 hr, Route: IV, Total Volume: 250, Start date: 12/14/21 18:53:00 CDT, Duration: 30 day, Stop date: 01/13/22 18:52:00 CDT, PRN Blood Glucose Results, 0 Dextrose 2022-0 No 250 mL, Memori a 10% in 12-14 Rate: 999 l Water IV 23:53: ml/hr, Infuse over: 0.3 hr, Route: IV, Total Volume: 250, Start date: 12/14/21 18:53:00 CDT, Duration: 30 day, Stop date: 01/13/22 18:52:00 CDT, PRN Blood Glucose Results, 0 Vancomycin No Notes: Memor ia Pharmacy 12-14 Vancomycin l Dosing 23:36: Pharmacy [place] Consult 47 Dosing Protocol PHARMAC Y USE ONLY Note: This is not a medication order. This is a consultati on order. Vancomycin No Notes: Memor ia Pharmacy 12-14 Vancomycin l Dosing 23:36: Pharmacy [place] Consult 47 Dosing Protocol PHARMAC Y USE ONLY Note: This is not a medication order. This is a consultati on order. simethicone No Notes: Heath bobo 12-14 (Same as: l 23:30: Mylicon) ondansetron No Notes: Heath bobo 12-14 (Same as: l 23:30: Zofran) MEDICATION WASTE Product Size: 4 mg Product Wasted: ___ mg dextrometho No Notes: Heath bobo rphan-guaiF 12-14 (dextromet l ENesin 10 23:30: horphan-gu He rmann mg-100 mg/5 00 aifenesin mL oral 10-100mg/5 liquid ml 10 ml oral SOLN ud) (Same as: Robitussin DM) diphenhydrA No 25 mg, 1 Me moria MINE 12-14 tab, l 23:30: Route: PO, Drug form: TAB, Q6H, Dosing Weight 95.455, kg, PRN Itching, Start date: 12/14/21 18:30:00 CDT, Duration: 30 day, Stop date: 01/13/22 18:29:00 CDT, 0 acetaminoph No Notes: Do M emoria en 12-14 not exceed l 23:30: 4 gm/day. (Same as: Tylenol) albuterol-i No Notes: Heath bobo pratropium 7-17 (Same as: l 2.5-0.5 mg 23:30: Duoneb) Herm silas inhalation solution Chlorasepti No Notes: Heath bobo c 1.4% 7-17 Chlorasept l spray 23:30: ic [place] (Same as: Chlorasept ic, Sore Throat [place]) WASTE: F/P - Black; E - Municipal Trash Bin Colace 100 No Notes: Memor ia mg oral 7-17 (Same as: l capsule 23:30: Colace) (Do Not Crush) hydrALAZINE No Notes: Heath bobo 7-17 (Same as: l 23:30: Apresoline [place] 00 ) Push over 5 minutes melatonin 3 No Notes: Heath bobo mg oral 7-17 (Same as: l tablet 23:30: Melatonin) [place] Pepcid 20 No Notes: Memori a mg oral 7-17 (Same as: l tablet 23:30: Pepcid) [place] 5/325 No Notes: Heath bobo oral tablet 7-17 (Same as: l 23:30: [place] 325/5) Do not exceed 4gm/day of acetaminop hen. morphine No 1 mg, 0.5 Heath bobo Sulfate 7-17 mL, Route: l 23:30: IVP, Drug form: SOLN, Q4H, Dosing Weight 95.455, kg, PRN Pain Score 7-10, Start date: 12/14/21 18:30:00 CDT, Duration: 30 day, Stop date: 01/13/22 18:29:00 CDT, 0 simethicone No Notes: Heath bobo 7-17 (Same as: l 23:30: Mylicon) ondansetron No Notes: Heath bobo 7-17 (Same as: l 23:30: Zofran) MEDICATION WASTE Product Size: 4 mg Product Wasted: ___ mg dextrometho No Notes: Heath bobo rphan-guaiF 7-17 (dextromet l ENesin 10 23:30: horphan-gu He rmann mg-100 mg/5 00 aifenesin mL oral 10-100mg/5 liquid ml 10 ml oral SOLN ud) (Same as: Robitussin DM) diphenhydrA No 25 mg, 1 Me moria MINE 7-17 tab, l 23:30: Route: PO, Drug form: TAB, Q6H, Dosing Weight 95.455, kg, PRN Itching, Start date: 12/14/21 18:30:00 CDT, Duration: 30 day, Stop date: 01/13/22 18:29:00 CDT, 0 acetaminoph No Notes: Do M emoria en 7-17 not exceed l 23:30: 4 gm/day. (Same as: Tylenol) albuterol-i No Notes: Heath bobo pratropium 7-17 (Same as: l 2.5-0.5 mg 23:30: Duoneb) Herm silas inhalation 00 solution Chlorasepti No Notes: Heath bobo c 1.4% 7-17 Chlorasept l spray 23:30: ic [place] (Same as: Chlorasept ic, Sore Throat [place]) WASTE: F/P - Black; E - Municipal Trash Bin Colace 100 No Notes: Memor ia mg oral 7-17 (Same as: l capsule 23:30: Colace) [place] (Do Not Crush) hydrALAZINE No Notes: Heath bobo 7-17 (Same as: l 23:30: Apresoline ) Push over 5 minutes melatonin 3 No Notes: Heath bobo mg oral 7-17 (Same as: l tablet 23:30: Melatonin) Lauryn nn 00 Pepcid 20 No Notes: Memori a mg oral 7-17 (Same as: l tablet 23:30: Pepcid) [place] 5/325 No Notes: Heath bobo oral tablet 7-17 (Same as: l 23:30: [place] 00 325/5) Do not exceed 4gm/day of acetaminop hen. morphine 2-0 No 1 mg, 0.5 Heath bobo Sulfate 7-17 mL, Route: l 23:30: IVP, Drug form: SOLN, Q4H, Dosing Weight 95.455, kg, PRN Pain Score 7-10, Start date: 12/14/21 18:30:00 CDT, Duration: 30 day, Stop date: 01/13/22 18:29:00 CDT, 0 Dextrose 2022-0 No 25 mL, Memoria 50% Syringe 12-14 Route: l (D50W) 23:29: IVP, Dosing Weight 95.455, kg, PRN, PRN Blood Glucose Results, Start date: 12/14/21 18:29:00 CDT, Duration: 30 day, Stop date: 01/13/22 18:28:00 CDT glucagon 2-0 No 1 mg, Memoria - Route: IM, l 23:29: Drug form: PDR/INJ, PRN, Dosing Weight 95.455, kg, PRN Blood Glucose Results, Start date: 12/14/21 18:29:00 CDT, Duration: 30 day, Stop date: 01/13/22 18:28:00 CDT, 0 insulin 2021-0 No Notes: Memoria lispro -17 (Same as: l 23:29: Humalog) Roll in palms of hands gently; Do not shake vigorously . WASTE: F/P - Black; E - Municipal Trash Bin Stable for 28 days at room temperatur e. Expires in days from ____Date Dextrose 2-0 No 25 mL, Memoria 50% Syringe 12-14 Route: l (D50W) 23:29: IVP, Dosing Weight 95.455, kg, PRN, PRN Blood Glucose Results, Start date: 12/14/21 18:29:00 CDT, Duration: 30 day, Stop date: 01/13/22 18:28:00 CDT glucagon 2-0 No 1 mg, Memoria 7-17 Route: IM, l 23:29: Drug form: [place] 00 PDR/INJ, PRN, Dosing Weight 95.455, kg, PRN [...] temperatur e. Expires in days from ____Date on No Notes: Memoria Perles 7-17 (Same As: l 23:28: Tessalon Perles) "Do Not Crush" zinc No Notes: Memoria sulfate 7-17 (Zinc l 23:28: sulfate capsule) - 220 mg Zinc sulfate = 50 mg elemental zinc Same as Zinc Sulfate ascorbic No Notes: Memoria acid 7-17 (Same as: l 23:28: Vitamin C) Tessalon No Notes: Memoria Perles 7-17 (Same As: l 23:28: Tessalon Perles) "Do Not Crush" zinc No Notes: Memoria sulfate 7-17 (Zinc l 23:28: sulfate capsule) - 220 mg Zinc sulfate = 50 mg elemental zinc Same as Zinc Sulfate ascorbic No Notes: Memoria acid 7-17 (Same as: l 23:28: Vitamin C) aspirin No Notes: Memoria 7-17 Take with l 22:40: food. Rocephin + No Notes: Memor ia Sodium 7-17 (Same As: l Chloride 22:40: Rocephin). Her clayton 0.9% IV 50 00 Use with mL 100 mL NS and infuse over 30 min MEDICATION WASTE Product Size: 1000 mg Product Wasted: ___ mg azithromyci No Notes: Hetah bobo n + Sodium 7-17 (Same As: l Chloride 22:40: Zithromax Herm silas 0.9% IV 250 00 IV) mL aspirin No Notes: Memoria 7-17 Take with l 22:40: food. [place] 00 Rocephin + No Notes: Memor ia Sodium 7-17 (Same As: l Chloride 22:40: Rocephin). Her clayton 0.9% IV 50 00 Use with mL 100 mL NS and infuse over 30 min MEDICATION WASTE Product Size: 1000 mg Product Wasted: ___ mg azithromyci No Notes: Heath bobo n + Sodium 7-17 (Same As: l Chloride 22:40: Zithromax Herm silas 0.9% IV 250 00 IV) mL Dextrose No 250 mL, Memori a 10% in 12-14 Rate: 999 l Water IV 21:08: ml/hr, Infuse over: 0.3 hr, Route: IV, Total Volume: 250, Start date: 12/14/21 16:08:00 CDT, Stop date: 12/14/21 16:08:00 CDT, 0 Dextrose No 250 mL, Memori a 10% in 12-14 Rate: 999 l Water IV 21:08: ml/hr, Infuse over: 0.3 hr, Route: IV, Total Volume: 250, Start date: 12/14/21 16:08:00 CDT, Stop date: 12/14/21 16:08:00 CDT, 0 d50 syringe 2021-0 No 25 mL, Heath bobo 7-17 Route: l 20:41: IVP, Dosing Weight 95.455, kg, ONCE, STAT, Start date: 12/14/21 15:41:00 CDT, Stop date: 12/14/21 15:41:00 CDT, 25 ml = 12.5 gm d50 syringe 2021-0 No 25 mL, Heath bobo 7-17 Route: l 20:41: IVP, [place] 00 Dosing Weight 95.455, kg, ONCE, STAT, Start date: 12/14/21 15:41:00 CDT, Stop date: 12/14/21 15:41:00 CDT, 25 ml = 12.5 gm Sodium 2021-0 No 250 mL, Memoria Chloride 707 Rate: To l 0.9% 01:29: prime line [place] (titrate) 00 and flush 250 mL remaining blood products., Dosing Weight 88.636, kg, Route: IV, Total Volume: 250, Start Date: 12/03/21 20:29:00 CDT, Duration: 1 day, Stop date: 12/04/21 20:28:00 CDT, Replace Every: 24 hr, 0 Sodium 2021-0 No 250 mL, Memoria Chloride 707 Rate: To l 0.9% 01:29: prime line [place] (titrate) 00 and flush 250 mL remaining blood products., Dosing Weight 88.636, kg, Route: IV, Total Volume: 250, Start Date: 12/03/21 20:29:00 CDT, Duration: 1 day, Stop date: 12/04/21 20:28:00 CDT, Replace Every: 24 hr, 0 Plavix 75 2021-0 Yes 75 mg = 1 Mem oria mg oral 6-28 tab, PO, l tablet 19:37: Daily, # [place] 00 30 tab, 0 Refill(s), other Plavix 75 2021-0 Yes 75 mg = 1 Mem oria mg oral 6-28 tab, PO, l tablet 19:37: Daily, # [place] 00 30 tab, 0 Refill(s), other Protonix No Notes: For Mem oria 6-28 IV push l 14:00: reconstitu [place] 00 te with 10 ml 0.9% sodium chloride and push over 2 minutes. (Same as: Protonix) atorvastati No Notes: Heath bobo n -28 (Same as: l 14:00: Lipitor) citalopram No Notes: Memor ia 6-28 (Same As: l 14:00: CeleXA) Protonix No Notes: For Mem oria 6-28 IV push l 14:00: reconstitu [place] 00 te with 10 ml 0.9% sodium chloride and push over 2 minutes. (Same as: Protonix) atorvastati No Notes: Heath bobo n 11-25 (Same as: l 14:00: Lipitor) citalopram No Notes: Memor ia 11-25 (Same As: l 14:00: CeleXA) dexamethaso No Notes: Heath bobo ne 11-25 Concentrat l 06:42: ion: [place] 00 4mg/ml dexamethaso No Notes: Heath bobo ne 11-25 Concentrat l 06:42: ion: [place] 00 4mg/ml D1W No 125 mL, Memoria (bolus) IV 11-25 Rate: 999 l 06:31: ml/hr, [place] 00 Infuse over: 0.1 hr, Route: IVPB, Total Volume: 125, Start date: 11/25/21 1:31:00 CDT, Duration: 30 day, Stop date: 12/25/21 1:30:00 CDT, PRN Blood Glucose Results, 0 No 125 mL, Memoria (bolus) IV 11-25 Rate: 999 l 06:31: ml/hr, [place] 00 Infuse over: 0.1 hr, Route: IVPB, Total Volume: 125, Start date: 11/25/21 1:31:00 CDT, Duration: 30 day, Stop date: 12/25/21 1:30:00 CDT, PRN Blood Glucose Results, 0 No 250 mL, Memoria (bolus) IV 11-25 Rate: 999 l 06:23: ml/hr, [place] 00 Infuse over: 0.3 hr, Route: IVPB, Total Volume: 250, Start date: 11/25/21 1:23:00 CDT, Duration: 30 day, Stop date: 12/25/21 1:22:00 CDT, PRN Blood Glucose Results, 0 No 250 mL, Memoria (bolus) IV 11-25 Rate: 999 l 06:23: ml/hr, [place] 00 Infuse over: 0.3 hr, Route: IVPB, Total Volume: 250, Start date: 11/25/21 1:23:00 CDT, Duration: 30 day, Stop date: 12/25/21 1:22:00 CDT, PRN Blood Glucose Results, 0 Dextrose 2-0 No 25 mL, Memoria 50% Syringe 11-25 Route: l (D50W) 05:55: IVP, [place] 00 Dosing Weight 94.545, kg, PRN, PRN Blood Glucose Results, Start date: 11/25/21 0:55:00 CDT, Duration: 30 day, Stop date: 12/25/21 0:54:00 CDT glucagon 2021-0 No 1 mg, [facility]oria 11-25 Route: IM, l 05:55: Drug form: [place] 00 PDR/INJ, PRN, Dosing Weight 94.545, kg, PRN Blood Glucose Results, Start date: 11/25/21 0:55:00 CDT, Duration: 30 day, Stop date: 12/25/21 0:54:00 CDT, 0 insulin 2021-0 No Notes: [facility]oria lispro 6-28 (Same as: l 05:55: Humalog) [place] 00 Roll in palms of hands gently; Do not shake vigorously . WASTE: F/P - Black; E - Municipal Trash Bin Stable for 28 days at room temperatur e. Expires in days from ____Date Dextrose 2-0 No 25 mL, [facility] 50% Syringe 11-25 Route: l (D50W) 05:55: IVP, [place] 00 Dosing Weight 94.545, kg, PRN, PRN Blood Glucose Results, Start date: 11/25/21 0:55:00 CDT, Duration: 30 day, Stop date: 12/25/21 0:54:00 CDT glucagon 2021-0 No 1 mg, [facility] 11-25 Route: IM, l 05:55: Drug form: [place] 00 PDR/INJ, PRN, Dosing Weight 94.545, kg, PRN Blood Glucose Results, Start date: 11/25/21 0:55:00 CDT, Duration: 30 day, Stop date: 12/25/21 0:54:00 CDT, 0 insulin 2021-0 No Notes: [facility] lispro 6-28 (Same as: l 05:55: Humalog) [place] 00 Roll in palms of hands gently; Do not shake vigorously . WASTE: F/P - Black; E - Municipal Trash Bin Stable for 28 days at room temperatur e. Expires in days from ____Date Zofran No Notes: [facility] 6-28 (Same as: l 05:54: Zofran) MEDICATION WASTE Product Size: 4 mg Product Wasted: ___ mg Tylenol No Notes: Do Memor ia 6-28 not exceed l 05:54: 4 gm/day. [place] 00 (Same as: Tylenol) Tessalon No Notes: [facility] Perles 6-28 (Same As: l 05:54: Tessalon [place] 00 Perles) "Do Not Crush" simethicone No Notes: Heath bobo 6-28 (Same as: l 05:54: Mylicon) senna 8.6 No Notes: Memori a mg oral 6-28 (Same as: l tablet 05:54: Senokot) Colace 50 No Notes: Memori a mg oral 6-28 (Same as: l capsule 05:54: Colace) Zofran No Notes: [facility] 6-28 (Same as: l 05:54: Zofran) MEDICATION WASTE Product Size: 4 mg Product Wasted: ___ mg Tylenol No Notes: Do Memor ia 6-28 not exceed l 05:54: 4 gm/day. [place] 00 (Same as: Tylenol) Tessalon No Notes: [facility] Perles 6-28 (Same As: l 05:54: Tessalon [place] 00 Perles) "Do Not Crush" simethicone No Notes: Heath bobo 6-28 (Same as: l 05:54: Mylicon) [place] 00 senna 8.6 No Notes: Memori a mg oral 6-28 (Same as: l tablet 05:54: Senokot) [place] 00 Colace 50 0 No Notes: Memori a mg oral 6-28 (Same as: l capsule 05:54: Colace) citalopram 0 Yes 0 [facility] 20 mg oral 6-28 Refill(s) l tablet 05:53: pantoprazol 0 Yes 0 Memori a e 40 mg 6-28 Refill(s) l oral 05:53: enteric 00 coated tablet clindamycin 0 Yes 0 Memori a 300 mg oral 6-28 Refill(s) l capsule 05:53: clopidogrel 0 No 0 Memori a 75 mg oral 6-28 Refill(s) l tablet 05:53: atorvastati 0 Yes 0 Memori a n 40 mg 6-28 Refill(s) l oral tablet 05:53: Basaglar 0 Yes 0 [facility] KwikPen 100 6-28 Refill(s) l units/mL 05:53: [facility] s solution Dialyvite 0 Yes 0 [facility] 800 Ultra D 6-28 Refill(s) l oral tablet 05:53: glipiZIDE 0 Yes 0 [facility] 10 mg oral 6-28 Refill(s) l tablet 05:53: citalopram 0 Yes 0 [facility] 20 mg oral 6-28 Refill(s) l tablet 05:53: pantoprazol 0 Yes 0 Memori a e 40 mg 6-28 Refill(s) l oral 05:53: enteric 00 coated tablet clindamycin 0 Yes 0 Memori a 300 mg oral 6-28 Refill(s) l capsule 05:53: clopidogrel 0 No 0 Memori a 75 mg oral 6-28 Refill(s) l tablet 05:53: atorvastati 2021-0 Yes 0 Memori a n 40 mg 6-28 Refill(s) l oral tablet 05:53: Basaglar 0 Yes 0 [facility] KwikPen 100 6-28 Refill(s) l units/mL 05:53: [place] 00 s solution Dialyvite Yes 0 [facility] 800 Ultra D 6-28 Refill(s) l oral tablet 05:53: [place] n 00 glipiZIDE Yes 0 [facility] 10 mg oral 6-28 Refill(s) l tablet 05:53: [place] 00 cefTRIAXone No Notes: Heath bobo + Sodium 6-28 (Same As: l Chloride 05:27: Rocephin). Her clay[place] 0.9% IV 50 00 Use with mL 100 mL NS and infuse over 30 min MEDICATION WASTE Product Size: 1000 mg Product Wasted: ___ mg cefTRIAXone No Notes: Heath bobo + Sodium 6-28 (Same As: l Chloride 05:27: Rocephin). Her clay[place] 0.9% IV 50 00 Use with mL 100 mL NS and infuse over 30 min MEDICATION WASTE Product Size: 1000 mg Product Wasted: ___ mg Protonix No Notes: For Mem oria 6-28 IV push l 03:37: reconstitu [place] 00 te with 10 ml 0.9% sodium chloride and push over 2 minutes. (Same as: Protonix) Protonix No Notes: For Mem oria 6-28 IV push l 03:37: reconstitu [place] 00 te with 10 ml 0.9% sodium chloride and push over 2 minutes. (Same as: Protonix) Advair HFA Advair HFA Yes Naveed 2 puffs Common 1-15 [facility] 00:00: - [facility] 00 [facility] BD BD 2018-05 Yes Naveed 1 needle Common Ultra-Fine Ultra-Fine 0-09 [facility] with Sp jerome Christina Pen Christina Pen 00:00: Basaglar - [facility]I Challenge Challenge 00 [facility] BD BD 2018-05 No QD BD Ultra-Fine Ultra-Fine 0-09 Ultra-Fine Christina Pen Christina Pen 00:00: Christina Pen Challenge 4mm Challenge 4mm 00 Challenge x 32Gm x 32Gm 4mm x 32Gm BD BD 2018-05 No QD BD Ultra-Fine Ultra-Fine 0-09 Ultra-Fine Christina Pen Christina Pen 00:00: Christina Pen Challenge 4mm Challenge 4mm 00 Challenge x 32Gm x 32Gm 4mm x 32Gm BD BD 2018-05 No QD BD Ultra-Fine Ultra-Fine 0-09 Ultra-Fine Christina Pen Christina Pen 00:00: Christina Pen Challenge 4mm Challenge 4mm 00 Challenge x 32Gm x 32Gm 4mm x 32Gm [facility] 2018- No QD BD Ultra-Fine Ultra-Fine 0-09 Ultra-Fine Christina Pen Christina Pen 00:00: Christina Pen Challenge 4mm Challenge 4mm 00 Challenge x 32Gm x 32Gm 4mm x 32Gm [facility] 2018- No QD BD Ultra-Fine Ultra-Fine 0-09 Ultra-Fine Christina Pen Christina Pen 00:00: [place]irst[place] Pen Challenge 4mm Challenge 4mm 00 Challenge x 32Gm x 32Gm 4mm x 32Gm [facility] 2018- No QD BD Ultra-Fine Ultra-Fine 0-09 Ultra-Fine Christina Pen Christina Pen 00:00: Christina Pen Challenge 4mm Challenge 4mm 00 Challenge x 32Gm x 32Gm 4mm x 32Gm [facility] 2018- No QD BD Ultra-Fine Ultra-Fine 0-09 Ultra-Fine Christina Pen Christina Pen 00:00: Christina Pen Challenge 4mm Challenge 4mm 00 Challenge x 32Gm x 32Gm 4mm x 32Gm [facility] 2018-05 No QD BD Ultra-Fine Ultra-Fine 0-09 Ultra-Fine Christina Pen Christina Pen 00:00: Christina Pen Challenge 4mm Challenge 4mm 00 Challenge x 32Gm x 32Gm 4mm x 32Gm [facility] 2018- No QD BD Ultra-Fine Ultra-Fine 0-09 Ultra-Fine Christina Pen Christina Pen 00:00: Christina Pen Challenge 4mm Challenge 4mm 00 Challenge x 32Gm x 32Gm 4mm x 32Gm [facility] 2018- No QD BD Ultra-Fine Ultra-Fine 0-09 Ultra-Fine Christina Pen Christina Pen 00:00: Christina Pen Challenge 4mm Challenge 4mm 00 Challenge x 32Gm x 32Gm 4mm x 32Gm [facility] 2018- No QD BD Ultra-Fine Ultra-Fine 0-09 Ultra-Fine Christina Pen Christina Pen 00:00: Christina Pen Challenge 4mm Challenge 4mm 00 Challenge x 32Gm x 32Gm 4mm x 32Gm [facility] 2018- No QD BD Ultra-Fine Ultra-Fine 0-09 Ultra-Fine Christina Pen Christina Pen 00:00: Christina Pen Challenge 4mm Challenge 4mm 00 Challenge x 32Gm x 32Gm 4mm x 32Gm [facility] 2018 No QD BD Ultra-Fine Ultra-Fine 0-09 Ultra-Fine Christina Pen Christina Pen 00:00: Christina Pen Challenge 4mm Challenge 4mm 00 Challenge x 32Gm x 32Gm 4mm x 32Gm [facility] 2018-05 No QD BD Ultra-Fine Ultra-Fine 0-09 Ultra-Fine Christina Pen Christina Pen 00:00: Christina Pen Challenge 4mm Challenge 4mm 00 Challenge x 32Gm x 32Gm 4mm x 32Gm [facility] 2018-05 No QD BD Ultra-Fine Ultra-Fine 0-09 Ultra-Fine Christina Pen Christina Pen 00:00: Christina Pen Challenge 4mm Challenge 4mm 00 Challenge x 32Gm x 32Gm 4mm x 32Gm [facility] 2018-05 No QD BD Ultra-Fine Ultra-Fine 0-09 Ultra-Fine Christina Pen Christina Pen 00:00: Christina Pen Challenge 4mm Challenge 4mm 00 Challenge x 32Gm x 32Gm 4mm x 32Gm [facility] 2018-05 No QD BD Ultra-Fine Ultra-Fine 0-09 Ultra-Fine Christina Pen Christina Pen 00:00: Christina Pen Challenge 4mm Challenge 4mm 00 Challenge x 32Gm x 32Gm 4mm x 32Gm [facility] 2018-05 No QD BD Ultra-Fine Ultra-Fine 0-09 Ultra-Fine Christina Pen Christina Pen 00:00: Christina Pen Challenge 4mm Challenge 4mm 00 Challenge x 32Gm x 32Gm 4mm x 32Gm [facility] 2018-05 No QD BD Ultra-Fine Ultra-Fine 0-09 Ultra-Fine Christina Pen Christina Pen 00:00: Christina Pen Challenge 4mm Challenge 4mm 00 Challenge x 32Gm x 32Gm 4mm x 32Gm [facility] 2018-05 No QD BD Ultra-Fine Ultra-Fine 0-09 Ultra-Fine Christina Pen Christina Pen 00:00: Christina Pen Challenge 4mm Challenge 4mm 00 Challenge x 32Gm x 32Gm 4mm x 32Gm [facility] 2018-05 No QD BD Ultra-Fine Ultra-Fine 0-09 Ultra-Fine Christina Pen Christina Pen 00:00: Christina Pen Challenge 4mm Challenge 4mm 00 Challenge x 32Gm x 32Gm 4mm x 32Gm [facility] 2018- No QD BD Ultra-Fine Ultra-Fine 0-09 Ultra-Fine Christina Pen Christina Pen 00:00: Christina Pen Challenge 4mm Challenge 4mm 00 Challenge x 32Gm x 32Gm 4mm x 32Gm Dexcom G6 Dexcom G6 No Dexcom G6 [...] G6 Dexcom G6 No Dexcom G6 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 - PreserVisio PreserVisio No PreserVisi n AREDS [...] - n Adult - [facility] Bas[facility]lar No QD Basaglar KwikPen 100 KwikPen [...] G6 Dexcom G6 No Dexcom G6 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 - Advair HFA Advair HFA No 2{puffs [...] G6 Dexcom G6 No Dexcom G6 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 - Advair HFA Advair HFA No 2{puffs [...] G6 Dexcom G6 No Dexcom G6 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 - Advair HFA Advair HFA No 2{puffs [...] G6 Dexcom G6 No Dexcom G6 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 - Atorvastati Atorvastati No 1{table QD Atorvastat [...] G6 Dexcom G6 No Dexcom G6 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 - Atorvastati Atorvastati No Atorvastat n Calcium [...] G6 Dexcom G6 No Dexcom G6 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 - Atorvastati Atorvastati No Atorvastat n Calcium [...] Advair HFA No 2{puffs BID Advair HFA } 230-21 MCG/ACT MCG/ACT MCG/ACT Citalopram Citalopram [...] Advair HFA No 2{puffs BID Advair HFA } 230-21 MCG/ACT MCG/ACT MCG/ACT Citalopram Citalopram [...] - n Adult - in Adult - Tums E-X Tums E-X Yes Naveed 1 tablet C ommon [address] [facility] Basaglar Basaglar Yes Naveed 52 Units C ommon KwikPen KwikPen [facility] PreserVisio PreserVisio Yes Naveed as Common n AREDS n AREDS [facility] directed [facility] it [facility] Citalopram Citalopram Yes Naveed 1 tablet Common Hydrobromid Hydrobromid [facility] Stool Stool Yes Naveed not Common Softener Softener [facility] defined Spi rit [facility] Gentle Gentle Yes Naveed 1 tablet Commo n Laxative Laxative [facility] as needed S pirit [facility] Atorvastati Atorvastati Yes Naveed 1 tablet Common n Calcium n Calcium [facility] Contour Contour Yes Naveed USE 3 Common Test Test Fortune TIMES A [facility] DAY [facility] Eliquis 2.5 Eliquis 2.5 Yes Naveed 1 tablet Common mg mg Fortune [facility] Multivitami Multivitami Yes Naveed as Common n Adult n Adult [facility] Carvedilol Carvedilol Yes Naveed TAKE 1 Common [facility] TABLET BY Spirit MOUTH - CHI TWICE A DAY ON [facility] DIALYSIS Medical DAYS [place] Atorvastati Atorvastati Yes Naveed TAKE 1 Common n Calcium n Calcium [facility] TABLET BY [facility] MOUTH - CHI EVERY DAY [facility] GlipiZIDE GlipiZIDE Yes Naveed 1 tablet Common [facility] Basaglar Basaglar Yes Naveed 50 Units C ommon KwikPen KwikPen [facility] Advair HFA Advair HFA No [...] G6 Dexcom G6 No Dexcom G6 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 - Carvedilol Carvedilol No Carvedilol 12.5 MG [...] G6 Dexcom G6 No Dexcom G6 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 - glipiZIDE 5 glipiZIDE 5 No 1{table [...] G6 Dexcom G6 No Dexcom G6 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 - Ipratropium Ipratropium No Ipratropiu -Albuterol -Albuterol [...] G6 Dexcom G6 No Dexcom G6 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 - Gentle Gentle No 1{table QD Gentle Laxative 5 Laxative 5 t_as_ne Laxative 5 MG MG eded} MG Ipratropium Ipratropium No Ipratropiu -Albuterol -Albuterol m-Albutero 0.5-2.5 (3) 0.5-2.5 (3) l 0.5-2.5 MG/3ML MG/3ML (3) MG/3ML Immunizations Ordered Immunization Filled Immunization Date Status Commen ts Source Name Name FluAD FluAD 2021-03-30 [facility]pleted [facility] FluAD FluAD 2021-03-30 [facility] FluAD FluAD 2021-03-30 [facility]:13[facility] - [facility] FluAD FluAD 2021-03-30 [facility]:13[facility] - [facility] FluAD FluAD 2021-03-30 [facility]:13[facility] - [facility] FluAD FluAD 2021-03-30 [facility]:13[facility] - [facility] FluAD FluAD 2021-03-30 [facility]:13[facility] - [facility] FluAD FluAD 2021-03-30 [facility]:13[facility] - [facility] FluAD FluAD 2021-03-30 [facility]pleted [facility]:13[facility] - [facility] FluAD FluAD 2021-03-30 [facility]pleted [facility]:13[facility] - [facility] FluAD FluAD 2021-03-30 [facility]pleted [facility]:13[facility]00 - [facility] FluAD FluAD 2021-03-30 [facility]:13[facility] - [facility] FluAD FluAD 2021-03-30 [facility]pleted [facility]:13:00 - [facility] FluAD FluAD 2021-03-30 [facility]pleted [facility]:13:00 - [facility] FluAD FluAD 2021-03-30 [facility]pleted [facility]:13:00 - [facility] FluAD FluAD 2021-03-30 [facility]pleted [facility] 13:13:00 - [facility] FluAD FluAD 2021-03-30 [facility]pleted [facility]:13:00 - [facility] FluAD FluAD 2021-03-30 [facility]pleted [facility] 13:13:00 [facility] FluAD FluAD 2021-03-30 [facility]pleted [facility] 13:13:00 - [facility] FluAD FluAD 2021-03-30 [facility]pleted [facility] 13:13[facility]00 [facility] COVID-19 Vaccine COVID-19 Vaccine 2020-08-19 Completed [facility] (Andrea) (Gliph) 09:17: [facility] COVID-19 Vaccine COVID-19 Vaccine 2020-08-19 Completed [facility] (Andrea) (Andrea) 09:17:00 - [facility] COVID-19 Vaccine COVID-19 Vaccine 2020-08-19 Completed [facility] (Andrea) (Andrea) 09:17:00 - [facility] COVID-19 Vaccine COVID-19 Vaccine 2020-08-19 Completed [facility] (Andrea) (Andrea) 09:17:00 - [facility] COVID-19 Vaccine COVID-19 Vaccine 2020-08-19 Completed [facility] (Andrea) (Andrea) 09:17:00 - [facility] COVID-19 Vaccine COVID-19 Vaccine 2020-08-19 Completed [facility] (Andrea) (Andrea) 09:17:00 [facility] COVID-19 Vaccine COVID-19 Vaccine 2020-08-19 Completed [facility] (Andrea) (Andrea) 09:17:00 [facility] COVID-19 Vaccine COVID-19 Vaccine 2020-08-19 Completed [facility] (Andrea) (Andrea) 09:17:00 - [facility] COVID-19 Vaccine COVID-19 Vaccine 2020-08-19 Completed [facility] ([facility]rea[facility] (Andrea) 09:17:00 [facility] COVID-19 Vaccine COVID-19 Vaccine 2020-08-19 Completed [facility] (Andrea) (Andrea) 09:17:00 [facility] COVID-19 Vaccine COVID-19 Vaccine 2020-08-19 Completed [facility] ([facility]rea) (Andrea) 09:17:00 - [facility] COVID-19 Vaccine COVID-19 Vaccine 2020-08-19 Completed [facility] (Andrea) (Andrea) 09:17:00 [facility] COVID-19 Vaccine COVID-19 Vaccine 2020-08-19 Completed [facility] (Andrea) (Andrea) 09:17:00 [facility] COVID-19 Vaccine COVID-19 Vaccine 2020-08-19 Completed [facility] ([facility]rea) (Andrea) 09:17:00 [facility] COVID-19 Vaccine COVID-19 Vaccine 2020-08-19 Completed [facility] (Andrea) (Andrea) 09:17:00 - [facility] COVID-19 Vaccine COVID-19 Vaccine 2020-08-19 Completed [facility] ([facility]rea) (Andrea) 09:17:00 [facility] COVID-19 Vaccine COVID-19 Vaccine 2020-08-19 Completed [facility] ([facility] (Andrea) 09:17:00 [facility] COVID-19 Vaccine COVID-19 Vaccine 2020-08-19 Completed [facility] ([facility] (Andrea) 09:17:00 [facility] COVID-19 Vaccine COVID-19 Vaccine 2020-08-19 Completed [facility] ([facility] (Andrea) 09:17:00 [facility] COVID-19 Vaccine COVID-19 Vaccine 2020-08-19 Completed [facility] ([facility]rea[facility] (Andrea) 09:17:00 [facility] COVID-19 Vaccine COVID-19 Vaccine 2020-08-19 Completed [facility] (Andrea[facility] (Andrea) 09:17:00 [facility] COVID-19 Vaccine COVID-19 Vaccine 2020-08-19 Completed [facility] ([facility]rea[facility] (Andrea) 09:17:00 [facility] Vital Signs Vital Name Observation Time Observation Value Comments Source height 2022-02-17 15:00:00 70 [in_i] [facility] weight 2022-02-17 15:00:00 208 [lb_av] [facility] temperature 2022-02-17 15:00:00 98.1 [degF] [facility] bmi 2022-02-17 15:00:00 29.84 kg/m2 [facility] blood pressure 2022-02-17 15:00:00 121 mm[Hg] Common [facility] - systolic [facility] blood pressure 2022-02-17 15:00:00 61 mm[Hg] [facility] - diastolic [facility] height 2022-01-06 14:30:00 70 [in_i] [facility] weight 2022-01-06 14:30:00 208 [lb_av] Common [facility] - [facility] bmi 2022-01-06 14:30:00 29.84 kg/m2 Common [facility] - [facility] blood pressure 2022-01-06 14:30:00 137 mm[Hg] [facility] - systolic [facility] blood pressure 2022-01-06 14:30:00 79 mm[Hg] [facility] - diastolic [facility] height 2021-11-03 09:45:00 70 [in_i] Common S pirit [facility] weight 2021-11-03 09:45:00 210 [lb_av] Common S [facility]irit - [facility] bmi 2021-11-03 09:45:00 30.13 kg/m2 Common [facility] - [facility] blood pressure 2021-11-03 09:45:00 144 mm[Hg] Common [facility] - systolic [facility] blood pressure 2021-11-03 09:45:00 86 mm[Hg] [facility] - diastolic [facility] height 2021-07-28 14:10:00 70 [in_i] Common S pirit [facility] weight 2021-07-28 14:10:00 211.8 [lb_av] [facility] temperature 2021-07-28 14:10:00 97.5 [degF] Common S pirit [facility] bmi 2021-07-28 14:10:00 30.39 kg/m2 [facility] S [facility]irit - [facility] oximetry 2021-07-28 14:10:00 93 % [facility]irit [facility] respiratory rate 2021-07-28 14:10:00 16 /min [facility] - [facility] blood pressure 2021-07-28 14:10:00 134 mm[Hg] Common [facility] - systolic [facility] blood pressure 2021-07-28 14:10:00 63 mm[Hg] [facility] - diastolic [facility] height 2021-07-28 13:20:00 70 [in_i] Common [facility]irit - [facility] weight 2021-07-28 13:20:00 211.8 [lb_av] Common [facility] temperature 2021-07-28 13:20:00 97.5 [degF] Common [facility] bmi 2021-07-28 13:20:00 30.39 kg/m2 Common [facility] oximetry 2021-07-28 13:20:00 93 % Common S pirit [facility] respiratory rate 2021-07-28 13:20:00 16 /min Comm on [facility] blood pressure 2021-07-28 13:20:00 134 mm[Hg] [facility] - systolic [facility] blood pressure 2021-07-28 13:20:00 62 mm[Hg] [facility] - diastolic [facility] height 2021-04-28 13:10:00 70 [in_i] Common [facility] weight 2021-04-28 13:10:00 215.9 [lb_av] Common [facility] temperature 2021-04-28 13:10:00 97.3 [degF] Common [facility] bmi 2021-04-28 13:10:00 30.98 kg/m2 Common S [facility] oximetry 2021-04-28 13:10:00 95 % Common [facility] respiratory rate 2021-04-28 13:10:00 17 /min Comm on [facility] blood pressure 2021-04-28 13:10:00 121 mm[Hg] [facility] - systolic [facility] blood pressure 2021-04-28 13:10:00 60 mm[Hg] [facility] - diastolic [facility] height 2021-03-12 09:30:00 70 [in_i] [facility] 2021-03-12 09:30:00 211.4 [lb_av] Common [facility] temperature 2021-03-12 09:30:00 97.7 [degF] Common S pirit - [facility] bmi 2021-03-12 09:30:00 30.33 kg/m2 Common S pirit - [facility] oximetry 2021-03-12 09:30:00 95 % Common S pirit - [facility] respiratory rate 2021-03-12 09:30:00 16 /min [facility] - [facility] blood pressure 2021-03-12 09:30:00 132 mm[Hg] [facility] - systolic [facility] blood pressure 2021-03-12 09:30:00 67 mm[Hg] [facility] - diastolic [facility] Heart Rate 2022-01-02 21:14:00 [facility] [place] Respitory Rate 2022-01-02 21:14:00 [facility] [place] Systolic (mm Hg) 2022-01-02 21:14:00 Heath rial [place] Diastolic (mm Hg) 2022-01-02 21:14:00 Mem orial [place] Height 2022-01-02 17:28:00 167.64 cm [facility] [place] BMI Calculated 2022-01-02 17:28:00 [facility] [place] Weight 2022-01-02 17:28:00 [facility] [place] Systolic (mm Hg) 2022-01-02 17:28:00 Heath rial [place] Diastolic (mm Hg) 2022-01-02 17:28:00 Mem orial [place] Heart Rate 2022-01-02 17:28:00 [facility] [place] Respitory Rate 2022-01-02 17:28:00 [facility] [place] Temperature Oral (F) 2022-01-02 17:28:00 97.5 F [facility] [place] Temperature Oral (F) 2021-12-17 00:00:00 98.0 F [facility] [place] Heart Rate 2021-12-17 00:00:00 [facility] [place] Respitory Rate 2021-12-17 00:00:00 [facility] [place] Systolic (mm Hg) 2021-12-17 00:00:00 Heath rial [place] Diastolic (mm Hg) 2021-12-17 00:00:00 Mem orial [place] Heart Rate 2021-12-16 21:00:00 [facility] [place] Respitory Rate 2021-12-16 21:00:00 [facility] [place] Systolic (mm Hg) 2021-12-16 21:00:00 Heath rial [place] Diastolic (mm Hg) 2021-12-16 21:00:00 Mem orial [place] Temperature Oral (F) 2021-12-16 21:00:00 98.0 F [facility] [place] Heart Rate 2021-12-16 20:20:00 [facility] [place] Respitory Rate 2021-12-16 20:20:00 [facility] [place] Systolic (mm Hg) 2021-12-16 20:20:00 Heath rial [place] Diastolic (mm Hg) 2021-12-16 20:20:00 Mem orial [place] Temperature Oral (F) 2021-12-16 20:20:00 97.3 F [facility] [place] Heart Rate 2021-12-15 08:58:06 [facility] [place] Systolic (mm Hg) 2021-12-15 08:58:01 Heath rial [place] Diastolic (mm Hg) 2021-12-15 08:58:01 Mem orial [place] Heart Rate 2021-12-15 08:58:01 [facility] [place] Temperature Oral (F) 2021-12-15 08:57:27 98.2 F [facility] [place] Temperature Oral (F) 2021-12-15 05:00:00 97.5 F [facility] [place] Heart Rate 2021-12-15 05:00:00 [facility] Systolic (mm Hg) 2021-12-15 05:00:00 [facility] Diastolic (mm Hg) 2021-12-15 05:00:00 [facility] Height 2021-12-15 03:03:00 177.8 cm [facility] [place] Weight 2021-12-15 03:03:00 [facility] BMI Calculated 2021-12-15 03:03:00 [facility] [place] Temperature Oral (F) 2021-12-15 01:20:46 97.4 F [facility] [place] Systolic (mm Hg) 2021-12-15 01:20:42 [facility] Diastolic (mm Hg) 2021-12-15 01:20:42 [facility] Respitory Rate 2021-12-15 00:45:00 [facility] [place] Height 2021-12-15 00:13:00 172.72 cm [facility] [place] BMI Calculated 2021-12-15 00:13:00 [facility] [place] Weight 2021-12-15 00:13:00 [facility] Respitory Rate 2021-12-14 23:56:00 [facility] [place] Height 2021-12-14 23:34:00 172.72 cm [facility] Weight 2021-12-14 23:34:00 [facility] Respitory Rate 2021-12-14 23:18:00 [facility] [place] BMI Calculated 2021-12-14 19:29:00 [facility] [place] Temperature Oral (F) 2021-12-04 14:04:00 97.9 F [facility] [place] Heart Rate 2021-12-04 14:04:00 [facility] Respitory Rate 2021-12-04 14:04:00 [facility] [place] Systolic (mm Hg) 2021-12-04 14:04:00 [facility] Diastolic (mm Hg) 2021-12-04 14:04:00 [facility] Temperature Oral (F) 2021-12-04 12:30:00 97.9 F [facility] [place] Heart Rate 2021-12-04 12:30:00 [facility] Respitory Rate 2021-12-04 12:30:00 [facility] [place] Systolic (mm Hg) 2021-12-04 12:30:00 [facility] [place] Diastolic (mm Hg) 2021-12-04 12:30:00 [facility] Respitory Rate 2021-12-04 11:45:00 [facility] [place] Heart Rate 2021-12-04 11:45:00 [facility] Temperature Oral (F) 2021-12-04 11:45:00 98.4 F [facility] Systolic (mm Hg) 2021-12-04 04:57:00 [facility] [place] Diastolic (mm Hg) 2021-12-04 04:57:00 [facility] [place] Weight 2021-12-03 23:22:00 [facility] [place] Respitory Rate 2021-11-27 00:01:00 [facility] Heart Rate 2021-11-26 21:50:00 [facility] Respitory Rate 2021-11-26 21:50:00 [facility] [place] Systolic (mm Hg) 2021-11-26 21:50:00 [facility] Diastolic (mm Hg) 2021-11-26 21:50:00 [facility] [place] Temperature Oral (F) 2021-11-26 18:40:00 98.0 F [facility] Heart Rate 2021-11-26 18:40:00 [facility] Respitory Rate 2021-11-26 18:40:00 [facility] [place] Systolic (mm Hg) 2021-11-26 18:40:00 [facility] [place] Diastolic (mm Hg) 2021-11-26 18:40:00 [facility] Heart Rate 2021-11-26 16:41:35 [facility] Systolic (mm Hg) 2021-11-26 16:41:27 [facility] [place] Diastolic (mm Hg) 2021-11-26 16:41:27 [facility] [place] Temperature Oral (F) 2021-11-26 16:40:28 98.4 F [facility] Temperature Oral (F) 2021-11-26 13:00:17 98.3 F [facility] Height 2021-11-25 03:24:00 177.8 cm [facility] BMI Calculated 2021-11-25 03:24:00 [facility] [place] Weight 2021-11-25 03:24:00 [facility] [place] Procedures Procedure Date / Time Performed Performing Clinician Lupe bowie [id number] 2021-10-18 00:00:00 [facility] Encounters Start End Encounter Admission Attending Care Care Encounter Source Date/Time Date/Time Type Type Clinicians Facility Department ID 2022-05-20 Outpatient [facility], STLMLC STLMLC [id number] Common 08:24:01 Naveed [facility] 2022-05-15 Outpatient [facility], STLMLC STLMLC [id number] Common 08:53:00 Naveed [facility] 2022-05-11 Outpatient [facility], STLMLC STLMLC [id number] Common 14:49:00 Naveed [facility] 2022-05-08 Outpatient [facility], STLMLC STLMLC [id number] Common 10:15:01 Naveed [id number] [facility] 2022-05-07 Outpatient [facility], STLMLC STLMLC [id number] Common 11:53:00 Naveed [facility] 2022-02-18 Outpatient [facility], STLMLC STLMLC [id number] Common 12:05:01 Naveed [facility] 2022-01-01 Outpatient [facility], STLMLC STLMLC [id number] Common 10:24:01 Naveed [facility] 2021-12-29 Outpatient [facility], STLMLC STLMLC [id number] Common 08:34:00 Naveed [facility] 2021-12-16 Outpatient [facility] [id number] 14:42:21 [id number] [facility] 2021-11-19 Outpatient [facility], STLMLC STLMLC [id number] Common 08:42:01 Naveed [facility] 2021-11-03 Outpatient Frotune, STLMLC STLMLC [id number] Common 10:33:01 Naveed [facility] 2021-10-15 Outpatient 3 [id number] ENCPL REF [id number] [facility] 08:19:25 [facility] [place] [facility] 2021-10-14 Outpatient 3 [id number] ENCPL REF [id number] [facility] 11:59:03 0517 [facility] [place] 2021-06-25 Outpatient [facility], STLMLC STLMLC [id number] Common 14:22:06 Naveed [id number] [facility] 2021-06-25 Outpatient [facility], STLMLC STLMLC [id number] Common 14:13:51 Naveed [id number] [facility] 2021-06-25 Outpatient [facility], STLMLC STLMLC [id number] Common 13:38:12 Naveed [id number] [facility] 2021-06-25 Outpatient [facility], STLMLC STLMLC [id number] Common 12:43:29 Naveed [id number] [facility] 2021-06-25 Outpatient [facility], STLMLC STLMLC [id number] Common 12:42:27 Naveed [id number] [facility] 2021-06-25 Outpatient [facility], STLMLC STLMLC [id number] Common 12:31:12 Naveed [id number] [facility] 2021-06-25 Outpatient [facility], STLMLC STLMLC [id number] Common 12:31:03 Naveed [id number] [facility] 2021-06-25 Outpatient [facility], STLMLC STLMLC [id number] Common 12:30:21 Naveed [id number] [facility] 2021-06-25 Outpatient [facility], STLMLC STLMLC [id number] Common 11:00:43 Naveed [id number] [facility] 2022-07-03 2022-07-03 (TEL) STLMLC STLMLC [id number] Co mmon 00:00:00 00:00:00 [facility] 2022-06-08 2022-06-08 (TEL) STLMLC STLMLC [id number] Co mmon 00:00:00 00:00:00 [facility] 2022-05-06 2022-05-06 (TEL) STLMLC STLMLC [id number] Co mmon 00:00:00 00:00:00 [facility] 2022-04-03 2022-04-03 (TEL) STLMLC STLMLC [id number] Co mmon 00:00:00 00:00:00 [facility] 2022-02-17 2022-02-17 (TEL) STLMLC STLMLC [id number] Co mmon 00:00:00 00:00:00 [facility] 2022-02-17 2022-02-17 OFFICE STLMLC STLMLC [id number] Co mmon 00:00:00 00:00:00 VISIT [facility] PT [facility] LEVEL 4 [facility] 2022-01-06 2022-01-06 OFFICE STLMLC STLMLC [id number] Co mmon 00:00:00 00:00:00 VISIT [facility] PT - CHI LEVEL 4 [facility] 2022-01-02 2022-01-02 Emergency [facility] [id number] Memoria 17:12:00 21:33:00 [facility] 03 [facility] 2022-01-02 2022-01-02 Emergency [facility] [id number] Memoria 17:12:00 21:33:00 [facility] 03 [facility] 2022-01-02 2022-01-[id number] 12:12:00 16:33:00 Carey R 03 2022-01-02 2022-01-02 Emergency E MERCEDES BL MHBL [id number] MHBL 12:12:00 16:33:00 CAREY 2022-01-01 2022-01-01 (TEL) STLMLC STLMLC [id number] Co mmon 00:00:00 00:00:00 [facility] 2021-12-31 2021-12-31 (TEL) STLMLC STLMLC [id number] Co mmon 00:00:00 00:00:00 [facility] 2021-12-14 2021-12-17 Inpatient [facility] [id number] Memoria 19:19:49 03:14:00 latrice Celeste 02 [facility] 2021-12-14 2021-12-17 Inpatient [facility] [id number] Memoria 19:19:49 03:14:00 [facility] 02 [facility] 2021-12-14 2021-12-16 Inpatient E LAURENT, JANE MED [id number] MHBL 18:26:00 22:14:00 ZACHARY 2021-12-14 2021-12-16 Outpatient Sajja, MHPL MHPL [id number] 14:19:49 22:14:00 Zachary 2021-12-14 2021-12-14 Outpatient Brook, PL MHPL [id number] 14:19:49 14:19:49 Damon 02 [place] 2021-12-03 2021-12-04 Emergency [facility] [id number] Memoria 23:19:26 14:53:00 [facility] 01 [facility] 2021-12-03 2021-12-04 Emergency [facility] [id number] Memoria 23:19:26 14:53:00 [facility] 01 [facility] 2021-12-03 2021-12-04 Outpatient Fadowole, MHPL MHPL [id number] 18:19:26 09:53:00 [facility] 2021-12-03 2021-12-04 Emergency E FADTIGREOLE, MHBL MHBL [id number] MHBL 18:19:00 09:53:00 PEPPER 2021-12-01 2021-12-01 Outpatient COH COH PIJFJKR ZIB COH 00:00:00 00:00:00 D-[id number] 2021-11-27 Observatio [facility] [id number] Memoria 03:23:10 00:12:00 n [place] 00 [facility] 2021-11-25 2021-11-27 Observatio [facility]Fl[facility] [id number] Memoria 03:23:10 00:12:00 n [place] 00 [facility] 2021-11-25 2021-11-26 Outpatient E AJIBADALE, MHBL MED [id number] MHBL 10:37:00 19:12:00 DAMON 2021-11-24 2021-11-26 Outpatient Ajibade, MHPL PL [id number] 22:23:10 19:12:00 [facility] 2021-11-24 2021-11-26 Outpatient Ajibade, MHPL PL [id number] 22:23:10 19:12:00 Damon 00 [place] 2021-11-24 2021-11-24 [id number] Co mmon 00:00:00 00:00:00 [facility] 2021-10-16 2021-11-03 Inpatient 3 NATHANIEL, ENCPL GILDA [id number] [facility] 23:26:00 21:40:00 CHILANGO 0519 [facility] 2021-11-03 2021-11-03 OFFICE STLMLC STLMLC [id number] Co mmon 00:00:00 00:00:00 VISIT [facility] PT LEVEL 4 [facility] 2021-10-17 2021-10-17 (TEL) STLMLC STLMLC [id number] Co mmon 00:00:00 00:00:00 [facility] 2021-08-12 2021-08-12 (TEL) STLMLC STLMLC [id number] Co mmon 00:00:00 00:00:00 [facility] 2021-07-28 2021-07-28 OFFICE STLMLC STLMLC [id number] Co mmon 00:00:00 00:00:00 VISIT [facility] PT - CHI LEVEL 4 [facility] 2021-07-28 2021-07-28 SUB ANNUAL STLMLC STLMLC [id number] Common 00:00:00 00:00:00 MCR [facility] VISIT [facility] 2021-06-12 2021-06-12 (TEL) STLMLC STLMLC [id number] Co mmon 00:00:00 00:00:00 [facility] 2021-05-21 2021-05-21 (TEL) STLMLC STLMLC [id number] Co mmon 00:00:00 00:00:00 [facility] 2021-04-28 2021-04-28 OFFICE STLMLC STLMLC [id number] Co mmon 00:00:00 00:00:00 VISIT [facility] PT - CHI LEVEL 4 [facility] 2021-03-26 2021-03-26 (TEL) STLMLC STLMLC [id number] Co mmon 00:00:00 00:00:00 [facility] 2021-03-12 2021-03-12 OFFICE STLMLC STLMLC [id number] Co mmon 00:00:00 00:00:00 [facility]IT [facility] PT - CHI LEVEL 4 [facility] 2021-02-10 2021-02-10 Outpatient STLMLC STLMLC [id number] Common 00:00:00 00:00:00 [facility] 2021-01-31 2021-01-31 Outpatient STLMLC STLMLC [id number] Common 00:00:00 00:00:00 [facility] 2021-01-13 2021-01-13 Outpatient STLMLC STLMLC [id number] Common 00:00:00 00:00:00 [facility] 2021-01-08 2021-01-08 Outpatient STLMLC STLMLC [id number] Common 00:00:00 00:00:00 [facility] 2020-12-31 2020-12-31 Outpatient STLMLC STLMLC [id number] Common 00:00:00 00:00:00 [facility] 2020-12-11 2020-12-11 Outpatient STLMLC STLMLC [id number] Common 00:00:00 00:00:00 [facility] 2020-08-19 2020-08-19 Outpatient STLMLC STLMLC [id number] Common 00:00:00 00:00:00 [facility] 2020-07-19 2020-07-19 Outpatient STLMLC STLMLC [id number] Common 00:00:00 00:00:00 [facility] 2020-07-15 2020-07-15 Outpatient STLMLC STLMLC [id number] Common 00:00:00 00:00:00 [facility] 2020-06-14 2020-06-14 Outpatient STLMLC STLMLC [id number] Common 00:00:00 00:00:00 [facility] 2020-06-05 2020-06-05 Outpatient STLMLC STLMLC [id number] Common 00:00:00 00:00:00 [facility] 2020-04-23 2020-04-23 Outpatient STLMLC STLMLC [id number] Common 00:00:00 00:00:00 [facility] 2020-04-22 2020-04-22 Outpatient STLMLC STLMLC [id number] Common 00:00:00 00:00:00 [facility] 2020-04-17 2020-04-17 Outpatient STLMLC STLMLC [id number] Common 00:00:00 00:00:00 [facility] 2020-01-15 2020-01-15 [facility] [id number] Common 10:45:00 10:45:[address] [facility] 2019-10-16 2019-10-16 [facility] [id number] Common 13:00:00 13:00:[address] [facility] 2019-07-17 2019-07-17 [facility] [id number] Common 13:45:00 13:45:[address] [facility] 2019-06-14 2019-06-14 [facility] [id number] Common 11:45:00 11:45:[address] [facility] 2019-06-07 2019-06-07 [facility] [id number] Common 11:57:00 11:57:[address] [facility] 2019-05-17 2019-05-17 [facility] [id number] Common 11:30:00 11:30:[address] [facility] 2019-04-24 2019-04-24 [facility] [id number] Common 14:52:00 14:52:[address] [facility] 2019-04-19 2019-04-19 [facility] [id number] Common 14:45:00 14:45:[address] [facility] 2019-04-06 2019-04-06 [facility] [id number] Common 08:35:00 08:35:[address] [facility] 2019-04-04 2019-04-04 [facility] [id number] Common 08:34:00 08:34:[address] [facility] 2019-03-08 2019-03-08 [facility] [id number] Common 10:57:00 10:57:00 t [employer] [address] [facility] 2019-02-20 2019-02-20 [facility] [id number] Common 14:00:00 14:00:00 t [employer] [address] [facility] Results Test Description Test Time Test Comments Results Result Comments Source BLOOD BANK RESULTS 2022-01-02 18:35:00 Test Item Value Reference Range Interpretation Comme nts ABO/Rh (test code = ABO/Rh) AB POS [employer] [id number] 18:35:00 Test Item Value Reference Range Interpretation Comments Antibody Scrn (test Negative (01/02/22 1:35 code = Antibody Scrn) PM) [employer] [id number] 18:35:00 Test Item Value Reference Range Interpretation Comments ABO/Rh (test code = ABO/Rh) AB POS [employer] [id number] 18:35:00 Test Item Value Reference Range Interpretation Comments Antibody Scrn (test Negative (01/02/22 1:35 code = Antibody Scrn) PM) [employer] [id number] 18:13:00 Test Item Value Reference Range Interpretation Comments Sodium Lvl (test code = Sodium Lvl) 134 135-145 [employer] [id number] 18:13:00 Test Item Value Reference Range Interpretation Comments Potassium Lvl (test code = Potassium 4.4 3.5-5.1 Lvl) [employer] [id number] 18:13:00 Test Item Value Reference Range Interpretation Comments Chloride Lvl (test code = Chloride Lvl) 98 95-109 [employer] [id number] 18:13:00 Test Item Value Reference Range Interpretation Comments CO2 (test code = CO2) 29 24-32 [employer] [id number] 18:13:00 Test Item Value Reference Range Interpretation Comments Calcium Lvl (test code = Calcium Lvl) 9.2 8.5-10.5 [employer] [id number] 18:13:00 Test Item Value Reference Range Interpretation Comments Total Protein (test code = Total 6.6 6.4-8.4 Protein) [id number] 18:13:00 Test Item Value Reference Range Interpretation Comments Albumin Lvl (test code = Albumin Lvl) 3.1 3.5-5.0 [facility] [id number] 18:13:00 Test Item Value Reference Range Interpretation Comments ALT (test code = ALT) 36 See_Comment [Auto mated message] The system which ge nerated this result transmit swathi reference range : <=65. The reference range was not used to interpr et this result as deny l/abnormal. [facility] [id number] 18:13:00 Test Item Value Reference Range Interpretation Comments AST (test code = AST) 28 See_Comment [Auto mated message] The system which ge nerated this result transmit swathi reference range : <=37. The reference range was not used to interpr et this result as deny l/abnormal. [facility] [id number] 18:13:00 Test Item Value Reference Range Interpretation Comments Alk Phos (test code = Alk Phos) 231 39-136 [facility] [id number] 18:13:00 Test Item Value Reference Range Interpretation Comments Bili Total (test code = Bili Total) 1.0 0.2-1.3 [facility] [id number] 18:13:00 Test Item Value Reference Range Interpretation Comments AGAP (test code = AGAP) 11.4 10.0-20.0 [facility] [id number] 18:13:00 Test Item Value Reference Range Interpretation Comments B/C Ratio (test code = B/C Ratio) 8 1 6-25 [facility] [id number] 18:13:00 Test Item Value Reference Range Interpretation Comments Globulin (test code = Globulin) 3.5 2.7-4.2 [facility] [id number] 18:13:00 Test Item Value Reference Range Interpretation Comments A/G Ratio (test code = A/G Ratio) 0.9 1 0.7-1.6 [facility] [id number] 18:13:00 Test Item Value Reference Range Interpretation Comments eGFR (test code = eGFR) 9 [id number] 18:13:00 Test Item Value Reference Range Interpretation Comments WBC (test code = WBC) 4.8 3.7-10.4 [facility] H[id number] 18:13:00 Test Item Value Reference Range Interpretation Comments RBC (test code = RBC) 1.93 4.70-6.10 [facility] [id number] 18:13:00 Test Item Value Reference Range Interpretation Comments Hgb (test code = Hgb) 7.2 14.0-18.0 [facility] [id number] 18:13:00 Test Item Value Reference Range Interpretation Comments Hct (test code = Hct) 21.2 42.0-54.0 [facility] [id number] 18:13:00 Test Item Value Reference Range Interpretation Comments MCV (test code = MCV) 110.1 80.0-94.0 [facility] HospitalZziixteSZLVDECECX1902-17-09 18:13:00 Test Item Value Reference Range Interpretation Comments MCH (test code = MCH) 37.1 pg 27.0-31.0 [facility] [id number] 18:13:00 Test Item Value Reference Range Interpretation Comments MCHC (test code = MCHC) 33.7 32.0-36.0 [facility] [id number] 18:13:00 Test Item Value Reference Range Interpretation Comments RDW (test code = RDW) 25.8 11.5-14.5 [facility] [id number] 18:13:00 Test Item Value Reference Range Interpretation Comments Platelet (test code = Platelet) 216 133-450 [facility] [id number] 18:13:00 Test Item Value Reference Range Interpretation Comments MPV (test code = MPV) 8.2 7.4-10.4 [place] [id number] 18:13:00 Test Item Value Reference Range Interpretation Comments PT (test code = PT) 16.9 s 12.0-14.7 [facility] H[id number] 18:13:00 Test Item Value Reference Range Interpretation Comments INR (test code = INR) 1.39 1 0.85-1.17 [facility] H[id number] 18:13:00 Test Item Value Reference Range Interpretation Comments PTT (test code = PTT) 35.0 s 22.9-35.8 [facility] H[id number] 18:13:00 Test Item Value Reference Range Interpretation Comments Plt Morph (test code = Normal (01/02/22 1:13 PM) Plt Morph) [facility] H[id number] 18:13:00 Test Item Value Reference Range Interpretation Comments Segs (test code = Segs) 76.4 45.0-75.0 [facility] HospitalCqebgikAUNVNABEWC4506-03-34 18:13:00 Test Item Value Reference Range Interpretation Comments Lymphocytes (test code = Lymphocytes) 14.6 20.0-40.0 [facility] [id number] 18:13:00 Test Item Value Reference Range Interpretation Comments Monocytes (test code = Monocytes) 7.5 2.0-12.0 [facility] [id number] 18:13:00 Test Item Value Reference Range Interpretation Comments Eosinophils (test code = 0.6 See_Comment [A utomated message] The Eosinophils) system which ge nerated this result tra nsmitted reference range : <=4.0. The reference r samantha was not used to int erpret this result as normal/abnormal . [facility] HospitalZesbrgyUURUYNEDZJ1351-04-12 18:13:00 Test Item Value Reference Range Interpretation Comments Basophils (test code = 0.9 See_Comment [Aut omated message] The Basophils) system which ge nerated this result tra nsmitted reference range : <=1.0. The reference r samantha was not used to int erpret this result as normal/abnormal . [facility] H[id number] 18:13:00 Test Item Value Reference Range Interpretation Comments Neutrophils # (test code = Neutrophils 3.7 1.5-8.1 #) [place] [id number] 18:13:00 Test Item Value Reference Range Interpretation Comments Lymphocytes # (test code = Lymphocytes 0.7 1.0-5.5 #) [place] [id number] 18:13:00 Test Item Value Reference Range Interpretation Comments Monocytes # (test code 0.4 See_Comment [Aut omated message] The = Monocytes #) system which generated this result tra nsmitted reference range : <=0.8. The reference r samantha was not used to int erpret this result as normal/abnormal . [id number] 18:13:00 Test Item Value Reference Range Interpretation Comments Anisocyte (test code = 2+ *ABN*(01/02/22 1:13 Anisocyte) PM) [facility] [id number] 18:13:00 Test Item Value Reference Range Interpretation Comments Macrocyte (test code = 2+ *ABN*(01/02/22 1:13 Macrocyte) PM) [facility] [id number] 18:13:00 Test Item Value Reference Range Interpretation Comments HS Troponin I (test code = HS Troponin 156 I) [facility]2022-08-05 18:13:00 Test Item Value Reference Range Interpretation Comments Glucose Lvl (test code = Glucose Lvl) 237 70-99 [facility]2022-08-05 18:13:00 Test Item Value Reference Range Interpretation Comments BUN (test code = BUN) 46 7-22 [facility]2022-08-05 18:13:00 Test Item Value Reference Range Interpretation Comments Creatinine Lvl (test code = Creatinine 5.92 0.50-1.40 Lvl) [facility]2022-08-05 18:13:00 Test Item Value Reference Range Interpretation Comments Sodium Lvl (test code = Sodium Lvl) 134 135-145 [facility]2022-08-05 18:13:00 Test Item Value Reference Range Interpretation Comments Potassium Lvl (test code = Potassium 4.4 3.5-5.1 Lvl) [facility]2022-08-05 18:13:00 Test Item Value Reference Range Interpretation Comments Chloride Lvl (test code = Chloride Lvl) 98 95-109 [facility]2022-08-05 18:13:00 Test Item Value Reference Range Interpretation Comments CO2 (test code = CO2) 29 24-32 [facility]2022-08-05 18:13:00 Test Item Value Reference Range Interpretation Comments Calcium Lvl (test code = Calcium Lvl) 9.2 8.5-10.5 [facility]2022-08-05 18:13:00 Test Item Value Reference Range Interpretation Comments Total Protein (test code = Total 6.6 6.4-8.4 Protein) [address]08-05 18:13:00 Test Item Value Reference Range Interpretation Comments Albumin Lvl (test code = Albumin Lvl) 3.1 3.5-5.[address]08-05 18:13:00 Test Item Value Reference Range Interpretation Comments ALT (test code = ALT) 36 See_Comment [Auto mated message] The system which ge nerated this result transmit swathi reference range : <=65. The reference range was not used to interpr et this result as deny l/abnormal. [address]08-05 18:13:00 Test Item Value Reference Range Interpretation Comments AST (test code = AST) 28 See_Comment [Auto mated message] The system which ge nerated this result transmit swathi reference range : <=37. The reference range was not used to interpr et this result as deny l/abnormal. [place] [address]-08-05 18:13:00 Test Item Value Reference Range Interpretation Comments Alk Phos (test code = Alk Phos) 231 39-136 [place] [address]-08-05 18:13:00 Test Item Value Reference Range Interpretation Comments Bili Total (test code = Bili Total) 1.0 0.2-1.3 [place] [address]-08-05 18:13:00 Test Item Value Reference Range Interpretation Comments AGAP (test code = AGAP) 11.4 10.0-20.0 [place] 387242-08-05 18:13:00 Test Item Value Reference Range Interpretation Comments B/C Ratio (test code = B/C Ratio) 8 1 6-[address]08-05 18:13:00 Test Item Value Reference Range Interpretation Comments Globulin (test code = Globulin) 3.5 2.7-4.2 [place] [address]-08-05 18:13:00 Test Item Value Reference Range Interpretation Comments A/G Ratio (test code = A/G Ratio) 0.9 1 0.7-1.6 [place] [address]-08-05 18:13:00 Test Item Value Reference Range Interpretation Comments eGFR (test code = eGFR) 9 [place] 704462-08-05 18:13:00 Test Item Value Reference Range Interpretation Comments WBC (test code = WBC) 4.8 3.7-10.4 [facility]FlihdecLRJBYTQTLH9606-02-14 18:13:00 Test Item Value Reference Range Interpretation Comments RBC (test code = RBC) 1.93 4.70-6.10 [facility] HospitalUjefmreGNQJZEZOHQ0515-30-62 18:13:00 Test Item Value Reference Range Interpretation Comments Hgb (test code = Hgb) 7.2 14.0-18.0 [facility] HospitalRtdjkioLCBBRMYGNO6821-07-22 18:13:00 Test Item Value Reference Range Interpretation Comments Hct (test code = Hct) 21.2 42.0-54.0 [facility] HospitalCjyodhcAFUQDSFVQM0995-30-37 18:13:00 Test Item Value Reference Range Interpretation Comments MCV (test code = MCV) 110.1 80.0-94.0 [facility] HospitalSffdrsfTRZYQVSPSV9848-30-48 18:13:00 Test Item Value Reference Range Interpretation Comments MCH (test code = MCH) 37.1 pg 27.0-31.0 [facility] HospitalKplbwszZEGPRMCKJT0725-86-85 18:13:00 Test Item Value Reference Range Interpretation Comments MCHC (test code = MCHC) 33.7 32.0-36.0 [facility] HospitalXhgftbeZIWSHKTLGM7834-72-07 18:13:00 Test Item Value Reference Range Interpretation Comments RDW (test code = RDW) 25.8 11.5-14.5 [facility] HospitalRwvvbswSWKYOPQIKA6206-32-43 18:13:00 Test Item Value Reference Range Interpretation Comments Platelet (test code = Platelet) 216 133-450 [facility] HospitalZbkrccePXGARVWMNE8319-10-71 18:13:00 Test Item Value Reference Range Interpretation Comments MPV (test code = MPV) 8.2 7.4-10.4 [facility] HospitalWbjglmoJXBPQESYWL2410-75-87 18:13:00 Test Item Value Reference Range Interpretation Comments PT (test code = PT) 16.9 s 12.0-14.7 [facility] HospitalOhmrbqeBBMNBKWYLC1449-77-02 18:13:00 Test Item Value Reference Range Interpretation Comments INR (test code = INR) 1.39 1 0.85-1.17 [facility] HospitalUixhdarBPNSUIVGLR7926-80-33 18:13:00 Test Item Value Reference Range Interpretation Comments PTT (test code = PTT) 35.0 s 22.9-35.8 [place] [address]-08-05 18:13:00 Test Item Value Reference Range Interpretation Comments Plt Morph (test code = Normal (01/02/22 1:13 PM) Plt Morph) [place] [address]-08-05 18:13:00 Test Item Value Reference Range Interpretation Comments Segs (test code = Segs) 76.4 45.0-75.0 [place] [address]-08-05 18:13:00 Test Item Value Reference Range Interpretation Comments Lymphocytes (test code = Lymphocytes) 14.6 20.0-40.0 [place] [address]-08-05 18:13:00 Test Item Value Reference Range Interpretation Comments Monocytes (test code = Monocytes) 7.5 2.0-12.0 [place] [address]-08-05 18:13:00 Test Item Value Reference Range Interpretation Comments Eosinophils (test code = 0.6 See_Comment [A utomated message] The Eosinophils) system which ge nerated this result tra nsmitted reference range : <=4.0. The reference r samantha was not used to int erpret this result as normal/abnormal . [place] [address]-08-05 18:13:00 Test Item Value Reference Range Interpretation Comments Basophils (test code = 0.9 See_Comment [Aut omated message] The Basophils) system which ge nerated this result tra nsmitted reference range : <=1.0. The reference r samantha was not used to int erpret this result as normal/abnormal . [place] 704462-08-05 18:13:00 Test Item Value Reference Range Interpretation Comments Neutrophils # (test code = Neutrophils 3.7 1.5-8.1 #) [place] [address]-08-05 18:13:00 Test Item Value Reference Range Interpretation Comments Lymphocytes # (test code = Lymphocytes 0.7 1.0-5.5 #) [place] [address]-08-05 18:13:00 Test Item Value Reference Range Interpretation Comments Monocytes # (test code 0.4 See_Comment [Aut omated message] The = Monocytes #) system which generated this result tra nsmitted reference range : <=0.8. The reference r samantha was not used to int erpret this result as normal/abnormal . [facility]RoeyfbjDWEEYRRNGM7105-28-86 18:13:00 Test Item Value Reference Range Interpretation Comments Anisocyte (test code = 2+ *ABN*(01/02/22 1:13 Anisocyte) PM) [facility] HospitalBuwikvpTIRQHYOOWQ7942-63-62 18:13:00 Test Item Value Reference Range Interpretation Comments Macrocyte (test code = 2+ *ABN*(01/02/22 1:13 Macrocyte) PM) [facility] 18:13:00 Test Item Value Reference Range Interpretation Comments HS Troponin I (test code = HS Troponin 156 I) [facility]2022-08-05 18:13:00 Test Item Value Reference Range Interpretation Comments Glucose Lvl (test code = Glucose Lvl) 237 70-99 [facility]2022-08-05 18:13:00 Test Item Value Reference Range Interpretation Comments BUN (test code = BUN) 46 7-22 [facility]2022-08-05 18:13:00 Test Item Value Reference Range Interpretation Comments Creatinine Lvl (test code = Creatinine 5.92 0.50-1.40 Lvl) [facility]2022-07-19 09:29:00 Test Item Value Reference Range Interpretation Comments Glucose Lvl (test code = Glucose Lvl) 199 70-99 [facility]2022-07-19 09:29:00 Test Item Value Reference Range Interpretation Comments BUN (test code = BUN) 28 7-22 [facility]2022-07-19 09:29:00 Test Item Value Reference Range Interpretation Comments Creatinine Lvl (test code = Creatinine 4.84 0.50-1.40 Lvl) [facility]2022-07-19 09:29:00 Test Item Value Reference Range Interpretation Comments Sodium Lvl (test code = Sodium Lvl) 134 135-145 [facility]2022-07-19 09:29:00 Test Item Value Reference Range Interpretation Comments Potassium Lvl (test code = Potassium 4.3 3.5-5.1 Lvl) [facility]2022-07-19 09:29:00 Test Item Value Reference Range Interpretation Comments Chloride Lvl (test code = Chloride Lvl) 100 95-109 [place] [address]-07-19 09:29:00 Test Item Value Reference Range Interpretation Comments CO2 (test code = CO2) 28 24-32 [place] 387242-07-19 09:29:00 Test Item Value Reference Range Interpretation Comments Calcium Lvl (test code = Calcium Lvl) 9.4 8.5-10.5 [place] 387242-07-19 09:29:00 Test Item Value Reference Range Interpretation Comments Total Protein (test code = Total 6.6 6.4-8.4 Protein) [place] 387242-07-19 09:29:00 Test Item Value Reference Range Interpretation Comments Albumin Lvl (test code = Albumin Lvl) 3.0 3.5-5.0 [place] [address]-07-19 09:29:00 Test Item Value Reference Range Interpretation Comments ALT (test code = ALT) 92 See_Comment [Auto mated message] The system which ge nerated this result transmit swathi reference range : <=65. The reference range was not used to interpr et this result as deny l/abnormal. [facility]2022-07-19 09:29:00 Test Item Value Reference Range Interpretation Comments Glucose Lvl (test code = Glucose Lvl) 199 70-99 [place] 387242-07-19 09:29:00 Test Item Value Reference Range Interpretation Comments BUN (test code = BUN) 28 7-22 [place] 387242-07-19 09:29:00 Test Item Value Reference Range Interpretation Comments AST (test code = AST) 123 See_Comment [Auto mated message] The system which ge nerated this result transmit swathi reference range : <=37. The reference range was not used to interpr et this result as deny l/abnormal. [place] 387242-07-19 09:29:00 Test Item Value Reference Range Interpretation Comments Creatinine Lvl (test code = Creatinine 4.84 0.50-1.40 Lvl) [place] 387242-07-19 09:29:00 Test Item Value Reference Range Interpretation Comments Sodium Lvl (test code = Sodium Lvl) 134 135-145 [place] 387242-07-19 09:29:00 Test Item Value Reference Range Interpretation Comments Potassium Lvl (test code = Potassium 4.3 3.5-5.1 Lvl) [place] 387242-07-19 09:29:00 Test Item Value Reference Range Interpretation Comments Chloride Lvl (test code = Chloride Lvl) 100 95-109 [place] 387242-07-19 09:29:00 Test Item Value Reference Range Interpretation Comments CO2 (test code = CO2) 28 24-32 [place] [address]-07-19 09:29:00 Test Item Value Reference Range Interpretation Comments Calcium Lvl (test code = Calcium Lvl) 9.4 8.5-10.5 [place] 387242-07-19 09:29:00 Test Item Value Reference Range Interpretation Comments Total Protein (test code = Total 6.6 6.4-8.4 Protein) [place] 387242-07-19 09:29:00 Test Item Value Reference Range Interpretation Comments Albumin Lvl (test code = Albumin Lvl) 3.0 3.5-5.0 [place] 387242-07-19 09:29:00 Test Item Value Reference Range Interpretation Comments ALT (test code = ALT) 92 See_Comment [Auto mated message] The system which ge nerated this result transmit swathi reference range : <=65. The reference range was not used to interpr et this result as deny l/abnormal. [place] 387242-07-19 09:29:00 Test Item Value Reference Range Interpretation Comments AST (test code = AST) 123 See_Comment [Auto mated message] The system which ge nerated this result transmit swathi reference range : <=37. The reference range was not used to interpr et this result as deny l/abnormal. [place] 387242-07-19 09:29:00 Test Item Value Reference Range Interpretation Comments Alk Phos (test code = Alk Phos) 272 39-136 [place] 387242-07-19 09:29:00 Test Item Value Reference Range Interpretation Comments Alk Phos (test code = Alk Phos) 272 39-136 [place] 387242-07-19 09:29:00 Test Item Value Reference Range Interpretation Comments Bili Total (test code = Bili Total) 0.9 0.2-1.3 [place] [address]-07-19 09:29:00 Test Item Value Reference Range Interpretation Comments AGAP (test code = AGAP) 10.3 10.0-20.0 [place] 387242-07-19 09:29:00 Test Item Value Reference Range Interpretation Comments B/C Ratio (test code = B/C Ratio) 6 1 6-25 [place] 387242-07-19 09:29:00 Test Item Value Reference Range Interpretation Comments Globulin (test code = Globulin) 3.6 2.7-4.2 [place] 387242-07-19 09:29:00 Test Item Value Reference Range Interpretation Comments A/G Ratio (test code = A/G Ratio) 0.8 1 0.7-1.6 [place] 387242-07-19 09:29:00 Test Item Value Reference Range Interpretation Comments eGFR (test code = eGFR) 12 [facility]2022-07-19 09:29:00 Test Item Value Reference Range Interpretation Comments Phosphorus (test code = Phosphorus) 4.3 2.5-4.5 [place] 704462-07-19 09:29:00 Test Item Value Reference Range Interpretation Comments WBC (test code = WBC) 4.7 3.7-10.4 [place] 704462-07-19 09:29:00 Test Item Value Reference Range Interpretation Comments RBC (test code = RBC) 2.14 4.70-6.10 [place] 387242-07-19 09:29:00 Test Item Value Reference Range Interpretation Comments Bili Total (test code = Bili Total) 0.9 0.2-1.3 [place] 704462-07-19 09:29:00 Test Item Value Reference Range Interpretation Comments Hgb (test code = Hgb) 7.6 14.0-18.0 [place] 704462-07-19 09:29:00 Test Item Value Reference Range Interpretation Comments Hct (test code = Hct) 22.8 42.0-54.0 [place] 704462-07-19 09:29:00 Test Item Value Reference Range Interpretation Comments MCV (test code = MCV) 106.6 80.0-94.0 [place] 704462-07-19 09:29:00 Test Item Value Reference Range Interpretation Comments MCH (test code = MCH) 35.6 pg 27.0-31.0 [facility] HospitalHbrcruwBDJXSRUFXB7769-61-14 09:29:00 Test Item Value Reference Range Interpretation Comments MCHC (test code = MCHC) 33.4 32.0-36.0 [facility] HospitalVszjkluZVDHBOFEHL7826-58-27 09:29:00 Test Item Value Reference Range Interpretation Comments RDW (test code = RDW) 24.3 11.5-14.5 [facility] HospitalDozjcgaCGWQOQEMGS4337-26-59 09:29:00 Test Item Value Reference Range Interpretation Comments Platelet (test code = Platelet) 148 133-450 [facility] HospitalWrptoatBHEGPGQONO3615-90-72 09:29:00 Test Item Value Reference Range Interpretation Comments MPV (test code = MPV) 8.1 7.4-10.4 [facility] HospitalXqqeysoSBFRTEXZRG6264-15-77 09:29:00 Test Item Value Reference Range Interpretation Comments D-Dimer (test code = D-Dimer) 3.63 [facility] HospitalYlhoycmJBWZDMBJLU6305-29-96 09:29:00 Test Item Value Reference Range Interpretation Comments Segs (test code = Segs) 74.8 45.0-75.0 [facility]2022-07-19 09:29:00 Test Item Value Reference Range Interpretation Comments AGAP (test code = AGAP) 10.3 10.0-20.0 [facility] HospitalQgqxuurQBATJDGTKS5511-24-46 09:29:00 Test Item Value Reference Range Interpretation Comments Lymphocytes (test code = Lymphocytes) 15.5 20.0-40.0 [facility] HospitalOytzdkwORZJOUMAZQ2543-89-34 09:29:00 Test Item Value Reference Range Interpretation Comments Monocytes (test code = Monocytes) 9.5 2.0-12.0 [place] 704462-07-19 09:29:00 Test Item Value Reference Range Interpretation Comments Basophils (test code = 0.2 See_Comment [Aut omated message] The Basophils) system which ge nerated this result tra nsmitted reference range : <=1.0. The reference r samantha was not used to int erpret this result as normal/abnormal . [facility] HospitalDbzypdbWJCINMQPYH8511-55-37 09:29:00 Test Item Value Reference Range Interpretation Comments Neutrophils # (test code = Neutrophils 3.5 1.5-8.1 #) [facility] HospitalPtlbokyGWURBAMUZC2892-95-70 09:29:00 Test Item Value Reference Range Interpretation Comments Lymphocytes # (test code = Lymphocytes 0.7 1.0-5.5 #) [facility] HospitalKwogmadNNZCJOQXED5013-05-79 09:29:00 Test Item Value Reference Range Interpretation Comments Monocytes # (test code 0.4 See_Comment [Aut omated message] The = Monocytes #) system which generated this result tra nsmitted reference range : <=0.8. The reference r samantha was not used to int erpret this result as normal/abnormal . [facility]evilleLrhletwERSBBPGFLR5582-99-50 09:29:00 Test Item Value Reference Range Interpretation Comments Macrocyte (test code = 1+ *ABN*(12/16/21 Macrocyte) 4:29 AM) [facility]evilleJfkvtejKVZINMEKYJ0958-62-97 09:29:00 Test Item Value Reference Range Interpretation Comments C-REACTIVE PROTEIN (test code = 19.0 C-REACTIVE PROTEIN) [facility] [id number] 09:29:00 Test Item Value Reference Range Interpretation Comments B/C Ratio (test code = B/C Ratio) 6 1 6-25 [facility] [id number] 09:29:00 Test Item Value Reference Range Interpretation Comments Globulin (test code = Globulin) 3.6 2.7-4.2 [facility] [id number] 09:29:00 Test Item Value Reference Range Interpretation Comments A/G Ratio (test code = A/G Ratio) 0.8 1 0.7-1.6 [facility] [id number] 09:29:00 Test Item Value Reference Range Interpretation Comments eGFR (test code = eGFR) 12 [facility] ZKYMJ6517-27-55 09:29:00 Test Item Value Reference Range Interpretation Comments Phosphorus (test code = Phosphorus) 4.3 2.5-4.5 [facility]evilleGqjxnvvAVKONYOXPD8545-95-25 09:29:00 Test Item Value Reference Range Interpretation Comments WBC (test code = WBC) 4.7 3.7-10.4 [facility]evillePiiicdrKAZDCFSTSX3578-19-94 09:29:00 Test Item Value Reference Range Interpretation Comments RBC (test code = RBC) 2.14 4.70-6.10 [facility]evilleJvoomtoAPBWMWWCTB4849-98-75 09:29:00 Test Item Value Reference Range Interpretation Comments Hgb (test code = Hgb) 7.6 14.0-18.0 [facility] HospitalGgdouynCLVFRTHGYL5493-37-36 09:29:00 Test Item Value Reference Range Interpretation Comments Hct (test code = Hct) 22.8 42.0-54.0 [place] 704462-07-19 09:29:00 Test Item Value Reference Range Interpretation Comments MCV (test code = MCV) 106.6 80.0-94.0 [facility] HospitalRvklxjeOMKVCCIVFZ6298-24-83 09:29:00 Test Item Value Reference Range Interpretation Comments MCH (test code = MCH) 35.6 pg 27.0-31.0 [facility] HospitalUkcfxgfYUXJZPTXAN5559-31-92 09:29:00 Test Item Value Reference Range Interpretation Comments MCHC (test code = MCHC) 33.4 32.0-36.0 [place] 704462-07-19 09:29:00 Test Item Value Reference Range Interpretation Comments RDW (test code = RDW) 24.3 11.5-14.5 [facility] HospitalSzofokrOUBRCBAJYK2276-99-30 09:29:00 Test Item Value Reference Range Interpretation Comments Platelet (test code = Platelet) 148 133-450 [facility] HospitalWkayfwkDKDSFLWNGO2079-56-81 09:29:00 Test Item Value Reference Range Interpretation Comments MPV (test code = MPV) 8.1 7.4-10.4 [facility] HospitalEaarbjrNBLSULTPFD7142-05-64 09:29:00 Test Item Value Reference Range Interpretation Comments D-Dimer (test code = D-Dimer) 3.63 [facility] HospitalCfkoclgDYPCDJIJQE5543-27-39 09:29:00 Test Item Value Reference Range Interpretation Comments Segs (test code = Segs) 74.8 45.0-75.0 [facility] HospitalNqayvnwNGIYPOPSGZ0258-27-22 09:29:00 Test Item Value Reference Range Interpretation Comments Lymphocytes (test code = Lymphocytes) 15.5 20.0-40.0 [facility] HospitalZpetislAQDIWGAWRK2671-97-78 09:29:00 Test Item Value Reference Range Interpretation Comments Monocytes (test code = Monocytes) 9.5 2.0-12.0 [place] 704462-07-19 09:29:00 Test Item Value Reference Range Interpretation Comments Basophils (test code = 0.2 See_Comment [Aut omated message] The Basophils) system which ge nerated this result tra nsmitted reference range : <=1.0. The reference r samantha was not used to int erpret this result as normal/abnormal . [facility] HospitalIbuhkyiRCWDAVPTWB8044-23-70 09:29:00 Test Item Value Reference Range Interpretation Comments Neutrophils # (test code = Neutrophils 3.5 1.5-8.1 #) [facility] HospitalLbrwufnIZFLFCDINV1408-63-50 09:29:00 Test Item Value Reference Range Interpretation Comments Lymphocytes # (test code = Lymphocytes 0.7 1.0-5.5 #) [facility] HospitalQvbbsikOJYYQJOBJA2104-60-15 09:29:00 Test Item Value Reference Range Interpretation Comments Monocytes # (test code 0.4 See_Comment [Aut omated message] The = Monocytes #) system which generated this result tra nsmitted reference range : <=0.8. The reference r samantha was not used to int erpret this result as normal/abnormal . [facility] HospitalAbxrfacFSASFVZLCT4325-92-08 09:29:00 Test Item Value Reference Range Interpretation Comments Macrocyte (test code = 1+ *ABN*(12/16/21 Macrocyte) 4:29 AM) [facility]evilleWugjivwAUQSMSLYPF7144-78-43 09:29:00 Test Item Value Reference Range Interpretation Comments C-REACTIVE PROTEIN (test code = 19.0 C-REACTIVE PROTEIN) [facility] BeevilleTuoagynBZBBENDGQF3365-12-59 02:28:00 Test Item Value Reference Range Interpretation Comments Hep Bs Ag (test code Negative *NA*(12/15/21 = Hep Bs Ag) 9:28 PM) [facility]TrpupujBEWSPRNQGX8103-46-34 02:28:00 Test Item Value Reference Range Interpretation Comments Hep Bs Ag (test code Negative *NA*(12/15/21 = Hep Bs Ag) 9:28 PM) [facility]annGram Stain Glkhcc5557-17-15 17:16:00 Test Item Value Reference Range Interpretation Comments Gram Stain Report Gram Stain Performed By: (test code = Gram [facility] St[facility]) [facility]Gram Dylxm4667-80-19 17:16:00 Test Item Value Reference Range Interpretation Comments Culture: Respiratory Moderate Yeast Normal w/Gram Stain (test code Respiratory Lyndsay = Culture: Respiratory Isolated w/Gram Stain) [facility]annG[facility] Xjqssr4863-88-33 17:16:00 Test Item Value Reference Range Interpretation Comments Gram Stain Report Gram Stain Performed By: (test code = Gram [facility] Stain Report) [facility] w/Gram [id number] 17:16:00 Test Item Value Reference Range Interpretation Comments Culture: Respiratory Moderate Yeast Normal w/Gram Stain (test code Respiratory Lyndsay = Culture: Respiratory Isolated w/Gram Stain) [facility] [id number] 09:04:00 Test Item Value Reference Range Interpretation Comments Glucose Lvl (test code = Glucose Lvl) 59 70-99 [facility] [id number] 09:04:00 Test Item Value Reference Range Interpretation Comments BUN (test code = BUN) 41 7-22 [facility]2022-07-18 09:04:00 Test Item Value Reference Range Interpretation Comments Creatinine Lvl (test code = Creatinine 7.00 0.50-1.40 Lvl) [facility] [id number] 09:04:00 Test Item Value Reference Range Interpretation Comments Sodium Lvl (test code = Sodium Lvl) 134 135-145 [facility]2022-07-18 09:04:00 Test Item Value Reference Range Interpretation Comments Potassium Lvl (test code = Potassium 4.0 3.5-5.1 Lvl) [facility]2022-07-18 09:04:00 Test Item Value Reference Range Interpretation Comments Chloride Lvl (test code = Chloride Lvl) 102 95-109 [facility]2022-07-18 09:04:00 Test Item Value Reference Range Interpretation Comments CO2 (test code = CO2) 25 24-32 [facility] [id number] 09:04:00 Test Item Value Reference Range Interpretation Comments Calcium Lvl (test code = Calcium Lvl) 9.1 8.5-10.5 [facility]2022-07-18 09:04:00 Test Item Value Reference Range Interpretation Comments Total Protein (test code = Total 6.2 6.4-8.4 Protein) [facility] [id number] 09:04:00 Test Item Value Reference Range Interpretation Comments Albumin Lvl (test code = Albumin Lvl) 2.8 3.5-5.0 [facility]2022-07-18 09:04:00 Test Item Value Reference Range Interpretation Comments ALT (test code = ALT) 78 See_Comment [Auto mated message] The system which ge nerated this result transmit swathi reference range : <=65. The reference range was not used to interpr et this result as deny l/abnormal. [facility] [employer] [id number] 09:04:00 Test Item Value Reference Range Interpretation Comments AST (test code = AST) 117 See_Comment [Auto mated message] The system which ge nerated this result transmit swathi reference range : <=37. The reference range was not used to interpr et this result as deny l/abnormal. [facility] [employer] [id number] 09:04:00 Test Item Value Reference Range Interpretation Comments Alk Phos (test code = Alk Phos) 251 39-136 [facility] [employer] [id number] 09:04:00 Test Item Value Reference Range Interpretation Comments Bili Total (test code = Bili Total) 0.9 0.2-1.3 [facility] [employer] [id number] 09:04:00 Test Item Value Reference Range Interpretation Comments AGAP (test code = AGAP) 11.0 10.0-20.0 [facility] [employer] [id number] 09:04:00 Test Item Value Reference Range Interpretation Comments B/C Ratio (test code = B/C Ratio) 6 1 6-25 [facility] [employer] [id number] 09:04:00 Test Item Value Reference Range Interpretation Comments Globulin (test code = Globulin) 3.4 2.7-4.2 [facility] [employer] [id number] 09:04:00 Test Item Value Reference Range Interpretation Comments A/G Ratio (test code = A/G Ratio) 0.8 1 0.7-1.6 [facility] [employer] [id number] 09:04:00 Test Item Value Reference Range Interpretation Comments eGFR (test code = eGFR) 8 [facility]ikBCQUFAZDIK8380-39-82 09:04:00 Test Item Value Reference Range Interpretation Comments D-Dimer (test code = D-Dimer) 3.03 [facility]RhazvkmUEYDDJIHTI7674-42-02 09:04:00 Test Item Value Reference Range Interpretation Comments WBC (test code = WBC) 3.6 3.7-10.4 [facility] HospitalWkqxizpSJGWFOKCGF6404-67-55 09:04:00 Test Item Value Reference Range Interpretation Comments RBC (test code = RBC) 2.07 4.70-6.10 [facility] HospitalPpgnqnzVGMGBFNAHW3832-03-93 09:04:00 Test Item Value Reference Range Interpretation Comments Hgb (test code = Hgb) 7.5 14.0-18.0 [facility] HospitalWurkkbnNRDXNRUFCN4991-03-96 09:04:00 Test Item Value Reference Range Interpretation Comments Hct (test code = Hct) 22.0 42.0-54.0 [facility] HospitalWjgygyuWOBYRYLQBK5042-59-53 09:04:00 Test Item Value Reference Range Interpretation Comments MCV (test code = MCV) 106.3 80.0-94.0 [facility] HospitalVpgaihuPEBOTHJRWR6450-63-02 09:04:00 Test Item Value Reference Range Interpretation Comments MCH (test code = MCH) 36.1 pg 27.0-31.0 [facility] HospitalNwqgcmaDXHRYGLSOR5443-32-62 09:04:00 Test Item Value Reference Range Interpretation Comments MCHC (test code = MCHC) 33.9 32.0-36.0 [facility] HospitalLtmlnuzSURWNEGTWL6028-98-05 09:04:00 Test Item Value Reference Range Interpretation Comments RDW (test code = RDW) 23.9 11.5-14.5 [facility] HospitalUshpqrbRMEPJWAPJH6573-22-54 09:04:00 Test Item Value Reference Range Interpretation Comments Platelet (test code = Platelet) 133 133-450 [facility] HospitalLqfoqffIESRFOFGWG0531-89-18 09:04:00 Test Item Value Reference Range Interpretation Comments MPV (test code = MPV) 8.1 7.4-10.4 [facility] HospitalDeuesxcOUAOMMAUPS7588-57-04 09:04:00 Test Item Value Reference Range Interpretation Comments Segs (test code = Segs) 60.8 45.0-75.0 [place] 704462-07-18 09:04:00 Test Item Value Reference Range Interpretation Comments Lymphocytes (test code = Lymphocytes) 22.3 20.0-40.0 [facility] HospitalKbqzkcoAEEHUXUXZZ6257-70-15 09:04:00 Test Item Value Reference Range Interpretation Comments Monocytes (test code = Monocytes) 13.9 2.0-12.0 [place] 704462-07-18 09:04:00 Test Item Value Reference Range Interpretation Comments Eosinophils (test code = 2.6 See_Comment [A utomated message] The Eosinophils) system which ge nerated this result tra nsmitted reference range : <=4.0. The reference r samantha was not used to int erpret this result as normal/abnormal . [facility] HospitalAxrgsduQHLXDWXVDJ0093-86-14 09:04:00 Test Item Value Reference Range Interpretation Comments Basophils (test code = 0.4 See_Comment [Aut omated message] The Basophils) system which ge nerated this result tra nsmitted reference range : <=1.0. The reference r samantha was not used to int erpret this result as normal/abnormal . [facility] HospitalMwzdnxpRWGIIDMLWT2679-28-08 09:04:00 Test Item Value Reference Range Interpretation Comments Neutrophils # (test code = Neutrophils 2.2 1.5-8.1 #) [facility] HospitalLrowzyxMGGNRCQPQG4055-29-75 09:04:00 Test Item Value Reference Range Interpretation Comments Lymphocytes # (test code = Lymphocytes 0.8 1.0-5.5 #) [facility] HospitalVpqpzihLZUIZTHWXH1874-53-30 09:04:00 Test Item Value Reference Range Interpretation Comments Monocytes # (test code 0.5 See_Comment [Aut omated message] The = Monocytes #) system which generated this result tra nsmitted reference range : <=0.8. The reference r samantha was not used to int erpret this result as normal/abnormal . [facility] HospitalGikfnqiGKVSRBCCLY6060-24-42 09:04:00 Test Item Value Reference Range Interpretation Comments Eosinophils # (test code 0.1 See_Comment [A utomated message] The = Eosinophils #) system whic h generated this result tra nsmitted reference range : <=0.5. The reference r samantha was not used to int erpret this result as normal/abnormal . [facility] HospitalXmjoywrYXZIYQZPGJ3590-42-72 09:04:00 Test Item Value Reference Range Interpretation Comments Macrocyte (test code = 1+ *ABN*(12/15/21 Macrocyte) 4:04 AM) [facility]pf[facility]QWK[facility]HEIWE9222-74-37 09:04:00 Test Item Value Reference Range Interpretation Comments C-REACTIVE PROTEIN (test code = 25.1 C-REACTIVE PROTEIN) [facility] BeevilleVysksotMQHWAZJICN4146-37-80 09:04:00 Test Item Value Reference Range Interpretation Comments Vanco Lvl (test code = Vanco Lvl) 15.2 [place] 387242-07-18 09:04:00 Test Item Value Reference Range Interpretation Comments Glucose Lvl (test code = Glucose Lvl) 59 70-99 [place] 387242-07-18 09:04:00 Test Item Value Reference Range Interpretation Comments BUN (test code = BUN) 41 7-22 [place] 387242-07-18 09:04:00 Test Item Value Reference Range Interpretation Comments Creatinine Lvl (test code = Creatinine 7.00 0.50-1.40 Lvl) [place] 387242-07-18 09:04:00 Test Item Value Reference Range Interpretation Comments Sodium Lvl (test code = Sodium Lvl) 134 135-145 [place] 387242-07-18 09:04:00 Test Item Value Reference Range Interpretation Comments Potassium Lvl (test code = Potassium 4.0 3.5-5.1 Lvl) [place] 387242-07-18 09:04:00 Test Item Value Reference Range Interpretation Comments Chloride Lvl (test code = Chloride Lvl) 102 95-109 [place] 387242-07-18 09:04:00 Test Item Value Reference Range Interpretation Comments CO2 (test code = CO2) 25 24-32 [place] 387242-07-18 09:04:00 Test Item Value Reference Range Interpretation Comments Calcium Lvl (test code = Calcium Lvl) 9.1 8.5-10.5 [place] 387242-07-18 09:04:00 Test Item Value Reference Range Interpretation Comments Total Protein (test code = Total 6.2 6.4-8.4 Protein) [place] 387242-07-18 09:04:00 Test Item Value Reference Range Interpretation Comments Albumin Lvl (test code = Albumin Lvl) 2.8 3.5-5.0 [place] 387242-07-18 09:04:00 Test Item Value Reference Range Interpretation Comments ALT (test code = ALT) 78 See_Comment [Auto mated message] The system which ge nerated this result transmit swathi reference range : <=65. The reference range was not used to interpr et this result as deny l/abnormal. [place] 387242-07-18 09:04:00 Test Item Value Reference Range Interpretation Comments AST (test code = AST) 117 See_Comment [Auto mated message] The system which ge nerated this result transmit swathi reference range : <=37. The reference range was not used to interpr et this result as deny l/abnormal. [place] 387242-07-18 09:04:00 Test Item Value Reference Range Interpretation Comments Alk Phos (test code = Alk Phos) 251 39-136 [place] 387242-07-18 09:04:00 Test Item Value Reference Range Interpretation Comments Bili Total (test code = Bili Total) 0.9 0.2-1.3 [place] 387242-07-18 09:04:00 Test Item Value Reference Range Interpretation Comments AGAP (test code = AGAP) 11.0 10.0-20.0 [place] 387242-07-18 09:04:00 Test Item Value Reference Range Interpretation Comments B/C Ratio (test code = B/C Ratio) 6 1 6-25 [place] [address]-07-18 09:04:00 Test Item Value Reference Range Interpretation Comments Globulin (test code = Globulin) 3.4 2.7-4.2 [place] 387242-07-18 09:04:00 Test Item Value Reference Range Interpretation Comments A/G Ratio (test code = A/G Ratio) 0.8 1 0.7-1.6 [place] 387242-07-18 09:04:00 Test Item Value Reference Range Interpretation Comments eGFR (test code = eGFR) 8 [place] 704462-07-18 09:04:00 Test Item Value Reference Range Interpretation Comments D-Dimer (test code = D-Dimer) 3.03 [place] 704462-07-18 09:04:00 Test Item Value Reference Range Interpretation Comments WBC (test code = WBC) 3.6 3.7-10.4 [place] 704462-07-18 09:04:00 Test Item Value Reference Range Interpretation Comments RBC (test code = RBC) 2.07 4.70-6.10 [place] 704462-07-18 09:04:00 Test Item Value Reference Range Interpretation Comments Hgb (test code = Hgb) 7.5 14.0-18.0 [place] 704462-07-18 09:04:00 Test Item Value Reference Range Interpretation Comments Hct (test code = Hct) 22.0 42.0-54.0 [place] 704462-07-18 09:04:00 Test Item Value Reference Range Interpretation Comments MCV (test code = MCV) 106.3 80.0-94.0 [place] 704462-07-18 09:04:00 Test Item Value Reference Range Interpretation Comments MCH (test code = MCH) 36.1 pg 27.0-31.0 [place] 704462-07-18 09:04:00 Test Item Value Reference Range Interpretation Comments MCHC (test code = MCHC) 33.9 32.0-36.0 [place] 704462-07-18 09:04:00 Test Item Value Reference Range Interpretation Comments RDW (test code = RDW) 23.9 11.5-14.5 [place] 704462-07-18 09:04:00 Test Item Value Reference Range Interpretation Comments Platelet (test code = Platelet) 133 133-450 [facility] HospitalTgdwniiXJBPKKPGFD0856-63-62 09:04:00 Test Item Value Reference Range Interpretation Comments MPV (test code = MPV) 8.1 7.4-10.4 [place] [address]-07-18 09:04:00 Test Item Value Reference Range Interpretation Comments Segs (test code = Segs) 60.8 45.0-75.0 [place] 704462-07-18 09:04:00 Test Item Value Reference Range Interpretation Comments Lymphocytes (test code = Lymphocytes) 22.3 20.0-40.0 [place] 704462-07-18 09:04:00 Test Item Value Reference Range Interpretation Comments Monocytes (test code = Monocytes) 13.9 2.0-12.0 [place] 704462-07-18 09:04:00 Test Item Value Reference Range Interpretation Comments Eosinophils (test code = 2.6 See_Comment [A utomated message] The Eosinophils) system which ge nerated this result tra nsmitted reference range : <=4.0. The reference r samantha was not used to int erpret this result as normal/abnormal . [facility]evilleFfiwjyzOHRVPCEZWA3984-93-58 09:04:00 Test Item Value Reference Range Interpretation Comments Basophils (test code = 0.4 See_Comment [Aut omated message] The Basophils) system which ge nerated this result tra nsmitted reference range : <=1.0. The reference r samantha was not used to int erpret this result as normal/abnormal . [facility]oz[facility]xvDNRVMRVSAV8303-66-17 09:04:00 Test Item Value Reference Range Interpretation Comments Neutrophils # (test code = Neutrophils 2.2 1.5-8.1 #) [facility] HospitalSnlmwauMVNAKIRVXN4152-22-84 09:04:00 Test Item Value Reference Range Interpretation Comments Lymphocytes # (test code = Lymphocytes 0.8 1.0-5.5 #) [facility] HospitalBnyzottEBBPBLJWLE6441-30-94 09:04:00 Test Item Value Reference Range Interpretation Comments Monocytes # (test code 0.5 See_Comment [Aut omated message] The = Monocytes #) system which generated this result tra nsmitted reference range : <=0.8. The reference r samantha was not used to int erpret this result as normal/abnormal . [facility] BeevilleTugfsckNPVLBJUMCL7145-85-41 09:04:00 Test Item Value Reference Range Interpretation Comments Eosinophils # (test code 0.1 See_Comment [A utomated message] The = Eosinophils #) system whic h generated this result tra nsmitted reference range : <=0.5. The reference r samantha was not used to int erpret this result as normal/abnormal . [facility] BeevilleLvdsbriYSLRPBUCHA9303-74-27 09:04:00 Test Item Value Reference Range Interpretation Comments Macrocyte (test code = 1+ *ABN*(12/15/21 Macrocyte) 4:04 AM) [facility]XqylgfeDMEMZZAEQP4790-42-36 09:04:00 Test Item Value Reference Range Interpretation Comments C-REACTIVE PROTEIN (test code = 25.1 C-REACTIVE PROTEIN) [facility]evilleQttuidcAQPFYGXKOR8972-43-61 09:04:00 Test Item Value Reference Range Interpretation Comments Vanco Lvl (test code = Vanco Lvl) 15.2 [facility]evilleBA[facility] - [id number] 00:29:00 Test Item Value Reference Range Interpretation Comments MRSA by PCR (test Negative (12/14/21 7:29 code = MRSA by PCR) PM) [facility] - [id number] 00:29:00 Test Item Value Reference Range Interpretation Comments MRSA by PCR (test Negative (12/14/21 7:29 code = MRSA by PCR) PM) [facility]annMOLECULAR [id number] 23:56:00 Test Item Value Reference Range Interpretation Comments Source Respiratory Nasophrngl Swb Panel PCR (test code = *NA*(12/14/21 6:56 PM) Source Respiratory Panel PCR) [facility]annCTLE[facility] [id number] 23:56:00 Test Item Value Reference Range Interpretation Comments Influenza A PCR (test Negative (12/14/21 6:56 code = Influenza A PCR) PM) [facility]CTLE[facility] [id number] 23:56:00 Test Item Value Reference Range Interpretation Comments Influenza B PCR (test Negative (12/14/21 6:56 code = Influenza B PCR) PM) [facility]CTLE[facility] [id number] 23:56:00 Test Item Value Reference Range Interpretation Comments RSV PCR (test code = Negative (12/14/21 6:56 RSV PCR) PM) [facility] [id number] 23:56:00 Test Item Value Reference Range Interpretation Comments Source Respiratory Nasophrngl Swb Panel PCR (test code = *NA*(12/14/21 6:56 PM) Source Respiratory Panel PCR) [facility] [id number] 23:56:00 Test Item Value Reference Range Interpretation Comments Influenza A PCR (test Negative (12/14/21 6:56 code = Influenza A PCR) PM) [facility] NKTFHDTBLR5914-56-31 23:56:00 Test Item Value Reference Range Interpretation Comments Influenza B PCR (test Negative (12/14/21 6:56 code = Influenza B PCR) PM) [facility]annCTLE[facility] [id number] 23:56:00 Test Item Value Reference Range Interpretation Comments RSV PCR (test code = Negative (12/14/21 6:56 RSV PCR) PM) [facility]CARDIAC [id number] 23:55:00 Test Item Value Reference Range Interpretation Comments BNP (test code = BNP) [address] [place], [place] [address]annCHEM [id number] 23:55:00 Test Item Value Reference Range Interpretation Comments Procalcitonin Lvl (test 0.80 See_Comment [Au tomated message] code = Procalcitonin Lvl) e system which generated this result transmitted ref erence range: <=0.10. The reference range was not used to interpr et this result as normal/abnormal . [facility] [employer]2022-07-17 23:55:00 Test Item Value Reference Range Interpretation Comments BNP (test code = BNP) 1994 [facility] [employer] [id number] 23:55:00 Test Item Value Reference Range Interpretation Comments Procalcitonin Lvl (test 0.80 See_Comment [Au tomated message] code = Procalcitonin Lvl) e system which generated this result transmitted ref erence range: <=0.10. The reference range was not used to interpr et this result as normal/abnormal . [facility] [employer]2022-07-17 21:26:00 Test Item Value Reference Range Interpretation Comments HS Troponin I 1 Hr (test code = HS 389 Troponin I 1 Hr) [facility] 21:26:00 Test Item Value Reference Range Interpretation Comments HS Troponin I 0 to 1 Hour Delta (test 49 1 code = HS Troponin I 0 to 1 Hour Delta) [facility] 21:26:00 Test Item Value Reference Range Interpretation Comments HS Troponin I 1 Hr (test code = HS 389 Troponin I 1 Hr) [facility] 21:26:00 Test Item Value Reference Range Interpretation Comments HS Troponin I 0 to 1 Hour Delta (test 49 1 code = HS Troponin I 0 to 1 Hour Delta) [facility] 20:10:00 Test Item Value Reference Range Interpretation Comments HS Troponin I Baseline (test code = HS 340 Troponin I Baseline) [facility] [employer] [id number] 20:10:00 Test Item Value Reference Range Interpretation Comments Glucose Lvl (test code = Glucose Lvl) 60 70-99 [facility] [employer]2022-07-17 20:10:00 Test Item Value Reference Range Interpretation Comments BUN (test code = BUN) 35 7-22 [place] 387242-07-17 20:10:00 Test Item Value Reference Range Interpretation Comments Creatinine Lvl (test code = Creatinine 6.10 0.50-1.40 Lvl) [place] 387242-07-17 20:10:00 Test Item Value Reference Range Interpretation Comments Sodium Lvl (test code = Sodium Lvl) 139 135-145 [place] 387242-07-17 20:10:00 Test Item Value Reference Range Interpretation Comments Potassium Lvl (test code = Potassium 3.1 3.5-5.1 Lvl) [place] [address]-07-17 20:10:00 Test Item Value Reference Range Interpretation Comments Chloride Lvl (test code = Chloride Lvl) 105 95-109 [place] 387242-07-17 20:10:00 Test Item Value Reference Range Interpretation Comments CO2 (test code = CO2) 28 24-32 [place] 387242-07-17 20:10:00 Test Item Value Reference Range Interpretation Comments Calcium Lvl (test code = Calcium Lvl) 8.1 8.5-10.5 [place] [address]-07-17 20:10:00 Test Item Value Reference Range Interpretation Comments Total Protein (test code = Total 5.8 6.4-8.4 Protein) [place] [address]-07-17 20:10:00 Test Item Value Reference Range Interpretation Comments Albumin Lvl (test code = Albumin Lvl) 2.6 3.5-5.0 [place] 387242-07-17 20:10:00 Test Item Value Reference Range Interpretation Comments ALT (test code = ALT) 74 See_Comment [Auto mated message] The system which [employer] nerated this result transmit swathi reference range : <=65. The reference range was not used to interpr et this result as deny l/abnormal. [place] 387242-07-17 20:10:00 Test Item Value Reference Range Interpretation Comments AST (test code = AST) 117 See_Comment [Auto mated message] The system which ge nerated this result transmit swathi reference range : <=37. The reference range was not used to interpr et this result as deny l/abnormal. [place] [address]-07-17 20:10:00 Test Item Value Reference Range Interpretation Comments Alk Phos (test code = Alk Phos) 241 39-136 [facility]2022-07-17 20:10:00 Test Item Value Reference Range Interpretation Comments Bili Total (test code = Bili Total) 0.8 0.2-1.3 [place] 387242-07-17 20:10:00 Test Item Value Reference Range Interpretation Comments AGAP (test code = AGAP) 9.1 10.0-20.0 [place] 387242-07-17 20:10:00 Test Item Value Reference Range Interpretation Comments B/C Ratio (test code = B/C Ratio) 6 1 6-25 [place] 387242-07-17 20:10:00 Test Item Value Reference Range Interpretation Comments Globulin (test code = Globulin) 3.2 2.7-4.2 [place] 387242-07-17 20:10:00 Test Item Value Reference Range Interpretation Comments A/G Ratio (test code = A/G Ratio) 0.8 1 0.7-1.6 [place] 387242-07-17 20:10:00 Test Item Value Reference Range Interpretation Comments eGFR (test code = eGFR) 9 [facility] HospitalWsynjakDFUPFKXFOJ3070-07-04 20:10:00 Test Item Value Reference Range Interpretation Comments WBC (test code = WBC) 4.3 3.7-10.4 [place] 704462-07-17 20:10:00 Test Item Value Reference Range Interpretation Comments RBC (test code = RBC) 2.17 4.70-6.10 [place] 704462-07-17 20:10:00 Test Item Value Reference Range Interpretation Comments Hgb (test code = Hgb) 7.7 14.0-18.0 [place] 704462-07-17 20:10:00 Test Item Value Reference Range Interpretation Comments Hct (test code = Hct) 22.9 42.0-54.0 [place] [address]-07-17 20:10:00 Test Item Value Reference Range Interpretation Comments MCV (test code = MCV) 105.9 80.0-94.0 [place] [address]-07-17 20:10:00 Test Item Value Reference Range Interpretation Comments MCH (test code = MCH) 35.4 pg 27.0-31.0 [facility] HospitalMtzvbmcXWGLHSXXHI6141-81-81 20:10:00 Test Item Value Reference Range Interpretation Comments MCHC (test code = MCHC) 33.4 32.0-36.0 [facility] HospitalHresseaEYGTTJUVIH9996-10-74 20:10:00 Test Item Value Reference Range Interpretation Comments RDW (test code = RDW) 23.6 11.5-14.5 [facility] HospitalXpyobcpNTKWILRXAQ8888-36-24 20:10:00 Test Item Value Reference Range Interpretation Comments Platelet (test code = Platelet) 146 133-450 [facility] HospitalIqqxcopXWTVITCWXF8070-50-46 20:10:00 Test Item Value Reference Range Interpretation Comments MPV (test code = MPV) 8.0 7.4-10.4 [facility] HospitalEphrinhZWKQVJLSMP0072-31-83 20:10:00 Test Item Value Reference Range Interpretation Comments Plt Morph (test code = Normal (12/14/21 3:10 Plt Morph) PM) [facility] HospitalXajrptrBLASYFRAPV7868-28-53 20:10:00 Test Item Value Reference Range Interpretation Comments Segs (test code = Segs) 67.4 45.0-75.0 [facility] HospitalQfuegraOUPARJTCNZ7003-92-70 20:10:00 Test Item Value Reference Range Interpretation Comments Lymphocytes (test code = Lymphocytes) 12.8 20.0-40.0 [facility] HospitalWbxbqjrRLRLQLCRXL3427-25-70 20:10:00 Test Item Value Reference Range Interpretation Comments Monocytes (test code = Monocytes) 15.1 2.0-12.0 [facility] HospitalVxmqtuqLNLBMDJGOO1225-44-86 20:10:00 Test Item Value Reference Range Interpretation Comments Eosinophils (test code = 4.1 See_Comment [A utomated message] The Eosinophils) system which ge nerated this result tra nsmitted reference range : <=4.0. The reference r samantha was not used to int erpret this result as normal/abnormal . [facility] HospitalCvfgxbxDOWQVFXBOB4008-65-32 20:10:00 Test Item Value Reference Range Interpretation Comments Basophils (test code = 0.6 See_Comment [Aut omated message] The Basophils) system which ge nerated this result tra nsmitted reference range : <=1.0. The reference r samantha was not used to int erpret this result as normal/abnormal . [place] 704462-07-17 20:10:00 Test Item Value Reference Range Interpretation Comments Neutrophils # (test code = Neutrophils 2.9 1.5-8.1 #) [facility] HospitalBdcyaqdUKGQYTULMD6956-41-68 20:10:00 Test Item Value Reference Range Interpretation Comments Lymphocytes # (test code = Lymphocytes 0.5 1.0-5.5 #) [facility] HospitalYsowrgoHLIUBTPWLM7303-06-99 20:10:00 Test Item Value Reference Range Interpretation Comments Monocytes # (test code 0.6 See_Comment [Aut omated message] The = Monocytes #) system which generated this result tra nsmitted reference range : <=0.8. The reference r samantha was not used to int erpret this result as normal/abnormal . [facility] HospitalDcgcafzJOWJUQUABU9385-80-71 20:10:00 Test Item Value Reference Range Interpretation Comments Eosinophils # (test code 0.2 See_Comment [A utomated message] The = Eosinophils #) system whic h generated this result tra nsmitted reference range : <=0.5. The reference r samantha was not used to int erpret this result as normal/abnormal . [facility] HospitalLolqfylXJKFSJXZEE9725-99-38 20:10:00 Test Item Value Reference Range Interpretation Comments Anisocyte (test code = 1+ *ABN*(12/14/21 Anisocyte) 3:10 PM) [facility] HospitalUqlmiobYKICDXKQRD8375-65-83 20:10:00 Test Item Value Reference Range Interpretation Comments Macrocyte (test code = 1+ *ABN*(12/14/21 Macrocyte) 3:10 PM) [facility]qjuISGSULPAVY9951-08-65 20:10:00 Test Item Value Reference Range Interpretation Comments Coronavirus (COVID-19) Detected MANUEL (test code = 4*ABN*(12/14/21 3:10 Coronavirus (COVID-19) PM) MANUEL) [facility] SSCLZRC2957-22-20 20:10:00 Test Item Value Reference Range Interpretation Comments HS Troponin I Baseline (test code = HS 340 Troponin I Baseline) [facility] [id number] 20:10:00 Test Item Value Reference Range Interpretation Comments Glucose Lvl (test code = Glucose Lvl) 60 70-99 [facility]2022-07-17 20:10:00 Test Item Value Reference Range Interpretation Comments BUN (test code = BUN) 35 7-22 [place] 387242-07-17 20:10:00 Test Item Value Reference Range Interpretation Comments Creatinine Lvl (test code = Creatinine 6.10 0.50-1.40 Lvl) [place] 387242-07-17 20:10:00 Test Item Value Reference Range Interpretation Comments Sodium Lvl (test code = Sodium Lvl) 139 135-145 [place] 387242-07-17 20:10:00 Test Item Value Reference Range Interpretation Comments Potassium Lvl (test code = Potassium 3.1 3.5-5.1 Lvl) [place] 387242-07-17 20:10:00 Test Item Value Reference Range Interpretation Comments Chloride Lvl (test code = Chloride Lvl) 105 95-109 [place] 387242-07-17 20:10:00 Test Item Value Reference Range Interpretation Comments CO2 (test code = CO2) 28 24-32 [place] 387242-07-17 20:10:00 Test Item Value Reference Range Interpretation Comments Calcium Lvl (test code = Calcium Lvl) 8.1 8.5-10.5 [place] 387242-07-17 20:10:00 Test Item Value Reference Range Interpretation Comments Total Protein (test code = Total 5.8 6.4-8.4 Protein) [place] 387242-07-17 20:10:00 Test Item Value Reference Range Interpretation Comments Albumin Lvl (test code = Albumin Lvl) 2.6 3.5-5.0 [place] 387242-07-17 20:10:00 Test Item Value Reference Range Interpretation Comments ALT (test code = ALT) 74 See_Comment [Auto mated message] The system which ge nerated this result transmit swathi reference range : <=65. The reference range was not used to interpr et this result as deny l/abnormal. [place] [address]-07-17 20:10:00 Test Item Value Reference Range Interpretation Comments AST (test code = AST) 117 See_Comment [Auto mated message] The system which ge nerated this result transmit swathi reference range : <=37. The reference range was not used to interpr et this result as deny l/abnormal. [place] 387242-07-17 20:10:00 Test Item Value Reference Range Interpretation Comments Alk Phos (test code = Alk Phos) 241 39-136 [place] 387242-07-17 20:10:00 Test Item Value Reference Range Interpretation Comments Bili Total (test code = Bili Total) 0.8 0.2-1.3 [facility]2022-07-17 20:10:00 Test Item Value Reference Range Interpretation Comments AGAP (test code = AGAP) 9.1 10.0-20.0 [place] 387242-07-17 20:10:00 Test Item Value Reference Range Interpretation Comments B/C Ratio (test code = B/C Ratio) 6 1 6-25 [place] 387242-07-17 20:10:00 Test Item Value Reference Range Interpretation Comments Globulin (test code = Globulin) 3.2 2.7-4.2 [facility]2022-07-17 20:10:00 Test Item Value Reference Range Interpretation Comments A/G Ratio (test code = A/G Ratio) 0.8 1 0.7-1.6 [place] 387242-07-17 20:10:00 Test Item Value Reference Range Interpretation Comments eGFR (test code = eGFR) 9 [facility] HospitalGqgusodZGOTZYNJXO4055-71-39 20:10:00 Test Item Value Reference Range Interpretation Comments WBC (test code = WBC) 4.3 3.7-10.4 [place] 704462-07-17 20:10:00 Test Item Value Reference Range Interpretation Comments RBC (test code = RBC) 2.17 4.70-6.10 [place] [address]-07-17 20:10:00 Test Item Value Reference Range Interpretation Comments Hgb (test code = Hgb) 7.7 14.0-18.0 [place] [address]-07-17 20:10:00 Test Item Value Reference Range Interpretation Comments Hct (test code = Hct) 22.9 42.0-54.0 [place] 704462-07-17 20:10:00 Test Item Value Reference Range Interpretation Comments MCV (test code = MCV) 105.9 80.0-94.0 [place] 704462-07-17 20:10:00 Test Item Value Reference Range Interpretation Comments MCH (test code = MCH) 35.4 pg 27.0-31.0 [facility] HospitalConiqlpEZORJTCXBX5932-95-01 20:10:00 Test Item Value Reference Range Interpretation Comments MCHC (test code = MCHC) 33.4 32.0-36.0 [place] 704462-07-17 20:10:00 Test Item Value Reference Range Interpretation Comments RDW (test code = RDW) 23.6 11.5-14.5 [place] 704462-07-17 20:10:00 Test Item Value Reference Range Interpretation Comments Platelet (test code = Platelet) 146 133-450 [facility] HospitalDhqdyoyWHEANZYRFM5489-28-94 20:10:00 Test Item Value Reference Range Interpretation Comments MPV (test code = MPV) 8.0 7.4-10.4 [place] 704462-07-17 20:10:00 Test Item Value Reference Range Interpretation Comments Plt Morph (test code = Normal (12/14/21 3:10 Plt Morph) PM) [facility] HospitalOazdyocZMERJIEOYK6441-85-97 20:10:00 Test Item Value Reference Range Interpretation Comments Segs (test code = Segs) 67.4 45.0-75.0 [place] 704462-07-17 20:10:00 Test Item Value Reference Range Interpretation Comments Lymphocytes (test code = Lymphocytes) 12.8 20.0-40.0 [place] 704462-07-17 20:10:00 Test Item Value Reference Range Interpretation Comments Monocytes (test code = Monocytes) 15.1 2.0-12.0 [place] 704462-07-17 20:10:00 Test Item Value Reference Range Interpretation Comments Eosinophils (test code = 4.1 See_Comment [A utomated message] The Eosinophils) system which ge nerated this result tra nsmitted reference range : <=4.0. The reference r samantha was not used to int erpret this result as normal/abnormal . [place] [address]-07-17 20:10:00 Test Item Value Reference Range Interpretation Comments Basophils (test code = 0.6 See_Comment [Aut omated message] The Basophils) system which ge nerated this result tra nsmitted reference range : <=1.0. The reference r samantha was not used to int erpret this result as normal/abnormal . [facility] HospitalUecpppnJQZAZQEEBG4610-50-31 20:10:00 Test Item Value Reference Range Interpretation Comments Neutrophils # (test code = Neutrophils 2.9 1.5-8.1 #) [facility] HospitalUlofegpNBQJBLHZOG3821-32-62 20:10:00 Test Item Value Reference Range Interpretation Comments Lymphocytes # (test code = Lymphocytes 0.5 1.0-5.5 #) [facility] HospitalYdfxhpwLGJVWPKVCQ5061-36-48 20:10:00 Test Item Value Reference Range Interpretation Comments Monocytes # (test code 0.6 See_Comment [Aut omated message] The = Monocytes #) system which generated this result tra nsmitted reference range : <=0.8. The reference r samantha was not used to int erpret this result as normal/abnormal . [facility] HospitalMuprqqmKYFJONXIDH4819-97-32 20:10:00 Test Item Value Reference Range Interpretation Comments Eosinophils # (test code 0.2 See_Comment [A utomated message] The = Eosinophils #) system whic h generated this result tra nsmitted reference range : <=0.5. The reference r samantha was not used to int erpret this result as normal/abnormal . [facility] HospitalExyxyjnRNNNQYZTWH7036-54-60 20:10:00 Test Item Value Reference Range Interpretation Comments Anisocyte (test code = 1+ *ABN*(12/14/21 Anisocyte) 3:10 PM) [facility] HospitalImvulbbQHYRAJQYFN1085-27-20 20:10:00 Test Item Value Reference Range Interpretation Comments Macrocyte (test code = 1+ *ABN*(12/14/21 Macrocyte) 3:10 PM) [facility]IjjcvijUHBBEKWQCD9720-32-22 20:10:00 Test Item Value Reference Range Interpretation Comments Coronavirus (COVID-19) Detected MANUEL (test code = 4*ABN*(12/14/21 3:10 Coronavirus (COVID-19) PM) MANUEL) [facility]2022-07-07 01:43:00 Test Item Value Reference Range Interpretation Comments Occult Bld Stl (test Negative (12/03/21 8:43 code = Occult Bld Stl) PM) [facility] AND [id number] 01:43:00 Test Item Value Reference Range Interpretation Comments Occult Bld Stl (test Negative (12/03/21 8:43 code = Occult Bld Stl) PM) [facility] NCYUUMZ7603-04-02 01:29:00 Test Item Value Reference Range Interpretation Comments RBC product (test code Product available = RBC product) 2(12/03/21 8:29 PM) [facility] [id number] 01:29:00 Test Item Value Reference Range Interpretation Comments RBC product (test code Product available = RBC product) 2(12/03/21 8:29 PM) [facility] [id number] 00:36:00 Test Item Value Reference Range Interpretation Comments ABO/Rh (test code = ABO/Rh) AB POS [facility] [id number] 00:36:00 Test Item Value Reference Range Interpretation Comments Antibody Scrn (test Negative (12/03/21 7:36 code = Antibody Scrn) PM) [facility] [id number] 00:36:00 Test Item Value Reference Range Interpretation Comments Glucose Lvl (test code = Glucose Lvl) 143 70-99 [facility] [employer] [id number] 00:36:00 Test Item Value Reference Range Interpretation Comments BUN (test code = BUN) 39 7-22 [facility] [employer] [id number] 00:36:00 Test Item Value Reference Range Interpretation Comments Creatinine Lvl (test code = Creatinine 5.46 0.50-1.40 Lvl) [facility] [employer] [id number] 00:36:00 Test Item Value Reference Range Interpretation Comments Sodium Lvl (test code = Sodium Lvl) 136 135-145 [facility] [employer] [id number] 00:36:00 Test Item Value Reference Range Interpretation Comments Potassium Lvl (test code = Potassium 4.2 3.5-5.1 Lvl) [facility] [employer] [id number] 00:36:00 Test Item Value Reference Range Interpretation Comments Chloride Lvl (test code = Chloride Lvl) 100 95-109 [facility] [employer] [id number] 00:36:00 Test Item Value Reference Range Interpretation Comments CO2 (test code = CO2) 27 24-32 [facility] [employer] [id number] 00:36:00 Test Item Value Reference Range Interpretation Comments Calcium Lvl (test code = Calcium Lvl) 8.9 8.5-10.5 [facility]2022-07-07 00:36:00 Test Item Value Reference Range Interpretation Comments AGAP (test code = AGAP) 13.2 10.0-20.0 [facility]2022-07-07 00:36:00 Test Item Value Reference Range Interpretation Comments eGFR (test code = eGFR) 10 [facility] HospitalDrphzqxBEOSUFGFCG9439-28-95 00:36:00 Test Item Value Reference Range Interpretation Comments WBC (test code = WBC) 2.5 3.7-10.4 [place] 704462-07-07 00:36:00 Test Item Value Reference Range Interpretation Comments RBC (test code = RBC) 1.97 4.70-6.10 [place] 704462-07-07 00:36:00 Test Item Value Reference Range Interpretation Comments Hgb (test code = Hgb) 7.1 14.0-18.0 [place] 704462-07-07 00:36:00 Test Item Value Reference Range Interpretation Comments Hct (test code = Hct) 20.6 42.0-54.0 [place] 704462-07-07 00:36:00 Test Item Value Reference Range Interpretation Comments MCV (test code = MCV) 105.0 80.0-94.0 [facility] HospitalKhrkfeuZLJFRVLZQJ6566-87-85 00:36:00 Test Item Value Reference Range Interpretation Comments MCH (test code = MCH) 36.2 pg 27.0-31.0 [facility] HospitalFbqnqgrRYEMHNXQJP4009-97-51 00:36:00 Test Item Value Reference Range Interpretation Comments MCHC (test code = MCHC) 34.5 32.0-36.0 [place] 704462-07-07 00:36:00 Test Item Value Reference Range Interpretation Comments RDW (test code = RDW) 21.1 11.5-14.5 [place] 704462-07-07 00:36:00 Test Item Value Reference Range Interpretation Comments Platelet (test code = Platelet) 136 133-450 [facility] HospitalSfcxvdvRLPYMQOPXW1455-04-67 00:36:00 Test Item Value Reference Range Interpretation Comments MPV (test code = MPV) 8.7 7.4-10.4 [place] 704462-07-07 00:36:00 Test Item Value Reference Range Interpretation Comments Segs (test code = Segs) 59.5 45.0-75.0 [place] 704462-07-07 00:36:00 Test Item Value Reference Range Interpretation Comments Lymphocytes (test code = Lymphocytes) 25.2 20.0-40.0 [place] 704462-07-07 00:36:00 Test Item Value Reference Range Interpretation Comments Monocytes (test code = Monocytes) 12.5 2.0-12.0 [place] 704462-07-07 00:36:00 Test Item Value Reference Range Interpretation Comments Eosinophils (test code = 2.1 See_Comment [A utomated message] The Eosinophils) system which ge nerated this result tra nsmitted reference range : <=4.0. The reference r samantha was not used to int erpret this result as normal/abnormal . [place] 704462-07-07 00:36:00 Test Item Value Reference Range Interpretation Comments Basophils (test code = 0.7 See_Comment [Aut omated message] The Basophils) system which ge nerated this result tra nsmitted reference range : <=1.0. The reference r samantha was not used to int erpret this result as normal/abnormal . [facility] HospitalCvqxodxLNMFIJZRJG9314-14-58 00:36:00 Test Item Value Reference Range Interpretation Comments Neutrophils # (test code = Neutrophils 1.5 1.5-8.1 #) [place] 704462-07-07 00:36:00 Test Item Value Reference Range Interpretation Comments Lymphocytes # (test code = Lymphocytes 0.6 1.0-5.5 #) [place] 704462-07-07 00:36:00 Test Item Value Reference Range Interpretation Comments Monocytes # (test code 0.3 See_Comment [Aut omated message] The = Monocytes #) system which generated this result tra nsmitted reference range : <=0.8. The reference r samantha was not used to int erpret this result as normal/abnormal . [facility] HospitalLiqokniKPNXISCGVI8772-23-63 00:36:00 Test Item Value Reference Range Interpretation Comments Eosinophils # (test code 0.1 See_Comment [A utomated message] The = Eosinophils #) system [facility] h generated this result tra nsmitted reference range : <=0.5. The reference r samantha was not used to int erpret this result as normal/abnormal . [facility]SlideShareNAME[facility] [id number] 00:36:00 Test Item Value Reference Range Interpretation Comments ABO/Rh (test code = ABO/Rh) AB POS [facility] [id number] 00:36:00 Test Item Value Reference Range Interpretation Comments Antibody Scrn (test Negative (12/03/21 7:36 code = Antibody Scrn) PM) [facility] [id number] 00:36:00 Test Item Value Reference Range Interpretation Comments Glucose Lvl (test code = Glucose Lvl) 143 70-99 [facility] [id number] 00:36:00 Test Item Value Reference Range Interpretation Comments BUN (test code = BUN) 39 -22 [facility] [id number] 00:36:00 Test Item Value Reference Range Interpretation Comments Creatinine Lvl (test code = Creatinine 5.46 0.50-1.40 Lvl) [facility] [id number] 00:36:00 Test Item Value Reference Range Interpretation Comments Sodium Lvl (test code = Sodium Lvl) 136 135-145 [facility] [id number] 00:36:00 Test Item Value Reference Range Interpretation Comments Potassium Lvl (test code = Potassium 4.2 3.5-5.1 Lvl) [facility] [id number] 00:36:00 Test Item Value Reference Range Interpretation Comments Chloride Lvl (test code = Chloride Lvl) 100 95-109 [facility] [id number] 00:36:00 Test Item Value Reference Range Interpretation Comments CO2 (test code = CO2) 27 24-32 [facility] [id number] 00:36:00 Test Item Value Reference Range Interpretation Comments Calcium Lvl (test code = Calcium Lvl) 8.9 8.5-10.5 [facility] [id number] 00:36:00 Test Item Value Reference Range Interpretation Comments AGAP (test code = AGAP) 13.2 10.0-20.0 [facility] [id number] 00:36:00 Test Item Value Reference Range Interpretation Comments eGFR (test code = eGFR) 10 [facility] HospitalXczgzisDFEOVOSPPA8917-08-54 00:36:00 Test Item Value Reference Range Interpretation Comments WBC (test code = WBC) 2.5 3.7-10.4 [facility] HospitalJiuoxjhWRRINIZUXW3016-08-82 00:36:00 Test Item Value Reference Range Interpretation Comments RBC (test code = RBC) 1.97 4.70-6.10 [facility] HospitalIdfxpqdVCRJOZDIGZ9371-16-24 00:36:00 Test Item Value Reference Range Interpretation Comments Hgb (test code = Hgb) 7.1 14.0-18.0 [facility] HospitalJgdcmmdRTLEANJDAA9064-60-19 00:36:00 Test Item Value Reference Range Interpretation Comments Hct (test code = Hct) 20.6 42.0-54.0 [facility] HospitalYlmsxosGQZZPLGYJL7787-39-79 00:36:00 Test Item Value Reference Range Interpretation Comments MCV (test code = MCV) 105.0 80.0-94.0 [facility] HospitalYptmdkzFTAWKBFUGR7754-54-12 00:36:00 Test Item Value Reference Range Interpretation Comments MCH (test code = MCH) 36.2 pg 27.0-31.0 [facility] HospitalSqlwabaWOPIBACRFD1841-11-92 00:36:00 Test Item Value Reference Range Interpretation Comments MCHC (test code = MCHC) 34.5 32.0-36.0 [facility] HospitalIjaizoaRGJPNSHXFN4297-04-79 00:36:00 Test Item Value Reference Range Interpretation Comments RDW (test code = RDW) 21.1 11.5-14.5 [facility] HospitalBgdupycZRRLYQBDAH5411-41-30 00:36:00 Test Item Value Reference Range Interpretation Comments Platelet (test code = Platelet) 136 133-450 [facility] HospitalIjcghboTMAFBCKPDG8386-77-28 00:36:00 Test Item Value Reference Range Interpretation Comments MPV (test code = MPV) 8.7 7.4-10.4 [facility] HospitalQbfndmhGOJBHPMWEW4528-33-08 00:36:00 Test Item Value Reference Range Interpretation Comments Segs (test code = Segs) 59.5 45.0-75.0 [facility] HospitalCnwamjcIUDLPZQOZY6970-53-62 00:36:00 Test Item Value Reference Range Interpretation Comments Lymphocytes (test code = Lymphocytes) 25.2 20.0-40.0 [facility] HospitalHghyajoRCJSPQFSRM0774-78-04 00:36:00 Test Item Value Reference Range Interpretation Comments Monocytes (test code = Monocytes) 12.5 2.0-12.0 [facility] HospitalIghusgsMWINLYVXRM8458-54-37 00:36:00 Test Item Value Reference Range Interpretation Comments Eosinophils (test code = 2.1 See_Comment [A utomated message] The Eosinophils) system which ge nerated this result tra nsmitted reference range : <=4.0. The reference r samantha was not used to int erpret this result as normal/abnormal . [facility] HospitalCqvbijtRXTDPJZUZJ6142-47-71 00:36:00 Test Item Value Reference Range Interpretation Comments Basophils (test code = 0.7 See_Comment [Aut omated message] The Basophils) system which ge nerated this result tra nsmitted reference range : <=1.0. The reference r samantha was not used to int erpret this result as normal/abnormal . [facility] HospitalCahjeijPJRMCQSLGV2793-09-20 00:36:00 Test Item Value Reference Range Interpretation Comments Neutrophils # (test code = Neutrophils 1.5 1.5-8.1 #) [facility] HospitalOqmoogxGZPEZSYPKR3798-25-40 00:36:00 Test Item Value Reference Range Interpretation Comments Lymphocytes # (test code = Lymphocytes 0.6 1.0-5.5 #) [facility] HospitalQammbnxSRZRQYMTBE4172-92-39 00:36:00 Test Item Value Reference Range Interpretation Comments Monocytes # (test code 0.3 See_Comment [Aut omated message] The = Monocytes #) system which generated this result tra nsmitted reference range : <=0.8. The reference r samantha was not used to int erpret this result as normal/abnormal . [facility] HospitalRkjderyKQIHFZJRIJ5520-77-87 00:36:00 Test Item Value Reference Range Interpretation Comments Eosinophils # (test code 0.1 See_Comment [A utomated message] The = Eosinophils #) system whic h generated this result tra nsmitted reference range : <=0.5. The reference r samantha was not used to int erpret this result as normal/abnormal . [facility]2022-06-29 09:09:00 Test Item Value Reference Range Interpretation Comments Ferritin Lvl (test code = Ferritin Lvl) 1543 22-095 [facility]2022-06-29 09:09:00 Test Item Value Reference Range Interpretation Comments Glucose Lvl (test code = Glucose Lvl) 288 70-99 [facility]2022-06-29 09:09:00 Test Item Value Reference Range Interpretation Comments BUN (test code = BUN) 40 7-22 [place] 387242-06-29 09:09:00 Test Item Value Reference Range Interpretation Comments Creatinine Lvl (test code = Creatinine 6.23 0.50-1.40 Lvl) [place] 387242-06-29 09:09:00 Test Item Value Reference Range Interpretation Comments Sodium Lvl (test code = Sodium Lvl) 134 135-145 [place] 387242-06-29 09:09:00 Test Item Value Reference Range Interpretation Comments Potassium Lvl (test code = Potassium 4.5 3.5-5.1 Lvl) [place] 387242-06-29 09:09:00 Test Item Value Reference Range Interpretation Comments Chloride Lvl (test code = Chloride Lvl) 96 95-109 [place] 387242-06-29 09:09:00 Test Item Value Reference Range Interpretation Comments CO2 (test code = CO2) 29 24-32 [place] 387242-06-29 09:09:00 Test Item Value Reference Range Interpretation Comments AGAP (test code = AGAP) 13.5 10.0-20.0 [place] 387242-06-29 09:09:00 Test Item Value Reference Range Interpretation Comments Calcium Lvl (test code = Calcium Lvl) 9.1 8.5-10.5 [place] 387242-06-29 09:09:00 Test Item Value Reference Range Interpretation Comments B/C Ratio (test code = B/C Ratio) 6 1 6-25 [place] 387242-06-29 09:09:00 Test Item Value Reference Range Interpretation Comments Total Protein (test code = Total 6.3 6.4-8.4 Protein) [place] 387242-06-29 09:09:00 Test Item Value Reference Range Interpretation Comments Albumin Lvl (test code = Albumin Lvl) 2.5 3.5-5.0 [place] 387242-06-29 09:09:00 Test Item Value Reference Range Interpretation Comments Globulin (test code = Globulin) 3.8 2.7-4.2 [place] 387242-06-29 09:09:00 Test Item Value Reference Range Interpretation Comments A/G Ratio (test code = A/G Ratio) 0.7 1 0.7-1.6 [place] [address]-06-29 09:09:00 Test Item Value Reference Range Interpretation Comments ALT (test code = ALT) 38 See_Comment [Auto mated message] The system which ge nerated this result transmit swathi reference range : <=65. The reference range was not used to interpr et this result as deny l/abnormal. [place] 387242-06-29 09:09:00 Test Item Value Reference Range Interpretation Comments AST (test code = AST) 31 See_Comment [Auto mated message] The system which ge nerated this result transmit swathi reference range : <=37. The reference range was not used to interpr et this result as deny l/abnormal. [place] 387242-06-29 09:09:00 Test Item Value Reference Range Interpretation Comments Alk Phos (test code = Alk Phos) 357 39-136 [place] 387242-06-29 09:09:00 Test Item Value Reference Range Interpretation Comments Bili Total (test code = Bili Total) 1.0 0.2-1.3 [place] 387242-06-29 09:09:00 Test Item Value Reference Range Interpretation Comments eGFR (test code = eGFR) 8 [place] 387242-06-29 09:09:00 Test Item Value Reference Range Interpretation Comments Magnesium Lvl (test code = Magnesium 2.0 1.8-2.4 Lvl) [place] 387242-06-29 09:09:00 Test Item Value Reference Range Interpretation Comments LDH (test code = LDH) 251 98-192 [place] 387242-06-29 09:09:00 Test Item Value Reference Range Interpretation Comments Procalcitonin Lvl (test 0.51 See_Comment [Au tomated message] code = Procalcitonin Lvl) Th e system which generated this result transmitted ref erence range: <=0.10. The reference range was not used to interpr et this result as normal/abnormal . [place] 704462-06-29 09:09:00 Test Item Value Reference Range Interpretation Comments D-Dimer (test code = D-Dimer) 5.06 [facility] HospitalIfnkpihAVDFCSJWGJ3449-52-65 09:09:00 Test Item Value Reference Range Interpretation Comments WBC (test code = WBC) 4.8 3.7-10.4 [facility] HospitalBgsendtGCFUQYYXJE0353-67-55 09:09:00 Test Item Value Reference Range Interpretation Comments RBC (test code = RBC) 2.14 4.70-6.10 [facility] HospitalYhrepelDFTNDFRLSW8856-58-20 09:09:00 Test Item Value Reference Range Interpretation Comments Hgb (test code = Hgb) 7.7 14.0-18.0 [facility] HospitalIhfhwxqLHYGYEXBNY5244-11-98 09:09:00 Test Item Value Reference Range Interpretation Comments Hct (test code = Hct) 22.8 42.0-54.0 [facility] HospitalVqjcyjqJLXVKSTKGL3994-00-50 09:09:00 Test Item Value Reference Range Interpretation Comments MCV (test code = MCV) 106.5 80.0-94.0 [facility] HospitalFzfkqysSWFFJFYERO7607-37-85 09:09:00 Test Item Value Reference Range Interpretation Comments MCH (test code = MCH) 36.1 pg 27.0-31.0 [facility] HospitalAfbmjwxPRJGQGXVRR7102-02-04 09:09:00 Test Item Value Reference Range Interpretation Comments MCHC (test code = MCHC) 33.9 32.0-36.0 [facility] HospitalOeeoslvKZPYLIHBJA1888-56-85 09:09:00 Test Item Value Reference Range Interpretation Comments RDW (test code = RDW) 21.8 11.5-14.5 [facility] HospitalNjouxsnLBLEZAQTPI1983-78-98 09:09:00 Test Item Value Reference Range Interpretation Comments Platelet (test code = Platelet) 176 133-450 [facility] HospitalYujcqhjBTMYBHJVOX4483-61-20 09:09:00 Test Item Value Reference Range Interpretation Comments MPV (test code = MPV) 8.2 7.4-10.4 [facility] HospitalRzdgnayDFHCFNAICL4636-65-60 09:09:00 Test Item Value Reference Range Interpretation Comments Segs (test code = Segs) 83.6 45.0-75.0 [facility] HospitalSccueumUYMGYOBMRE3109-90-49 09:09:00 Test Item Value Reference Range Interpretation Comments Lymphocytes (test code = Lymphocytes) 10.7 20.0-40.0 [facility] HospitalGtgwcpyWQKXKEIITV0552-45-77 09:09:00 Test Item Value Reference Range Interpretation Comments Monocytes (test code = Monocytes) 4.9 2.0-12.0 [facility] HospitalZshefupFRDNGNKJVX5983-86-92 09:09:00 Test Item Value Reference Range Interpretation Comments Eosinophils (test code = 0.4 See_Comment [A utomated message] The Eosinophils) system which ge nerated this result tra nsmitted reference range : <=4.0. The reference r samantha was not used to int erpret this result as normal/abnormal . [facility] HospitalMpiufzhCGYQYEKFVZ8206-78-28 09:09:00 Test Item Value Reference Range Interpretation Comments Basophils (test code = 0.4 See_Comment [Aut omated message] The Basophils) system which ge nerated this result tra nsmitted reference range : <=1.0. The reference r samantha was not used to int erpret this result as normal/abnormal . [facility] HospitalPibssezOUWCXDXLSG4189-34-63 09:09:00 Test Item Value Reference Range Interpretation Comments Neutrophils # (test code = Neutrophils 4.0 1.5-8.1 #) [facility] HospitalLebynntRPHVRHESQU7913-84-54 09:09:00 Test Item Value Reference Range Interpretation Comments Lymphocytes # (test code = Lymphocytes 0.5 1.0-5.5 #) [facility] HospitalSwstdejHCLBUWMITG5650-54-76 09:09:00 Test Item Value Reference Range Interpretation Comments Monocytes # (test code 0.2 See_Comment [Aut omated message] The = Monocytes #) system which generated this result tra nsmitted reference range : <=0.8. The reference r samantha was not used to int erpret this result as normal/abnormal . [facility] HospitalGkwvrzmBFUNDNISRH1664-08-70 09:09:00 Test Item Value Reference Range Interpretation Comments Macrocyte (test code = 1+ *ABN*(11/26/21 Macrocyte) 4:09 AM) [facility]QgjalsrUFXPBXYSLX4637-34-06 09:09:00 Test Item Value Reference Range Interpretation Comments Interleukin 6 (test code = Interleukin 14.71 6) [facility] HospitalPqadpfcGCFUFUUURE1126-61-42 09:09:00 Test Item Value Reference Range Interpretation Comments C-REACTIVE PROTEIN (test code = 95.9 C-REACTIVE PROTEIN) [facility]2022-06-29 09:09:00 Test Item Value Reference Range Interpretation Comments Ferritin Lvl (test code = Ferritin Lvl) 1543 22-275 [place] 387242-06-29 09:09:00 Test Item Value Reference Range Interpretation Comments Glucose Lvl (test code = Glucose Lvl) 288 70-99 [place] 387242-06-29 09:09:00 Test Item Value Reference Range Interpretation Comments BUN (test code = BUN) 40 7-22 [place] 387242-06-29 09:09:00 Test Item Value Reference Range Interpretation Comments Creatinine Lvl (test code = Creatinine 6.23 0.50-1.40 Lvl) [place] 387242-06-29 09:09:00 Test Item Value Reference Range Interpretation Comments Sodium Lvl (test code = Sodium Lvl) 134 135-145 [place] 387242-06-29 09:09:00 Test Item Value Reference Range Interpretation Comments Potassium Lvl (test code = Potassium 4.5 3.5-5.1 Lvl) [place] 387242-06-29 09:09:00 Test Item Value Reference Range Interpretation Comments Chloride Lvl (test code = Chloride Lvl) 96 95-109 [place] 387242-06-29 09:09:00 Test Item Value Reference Range Interpretation Comments CO2 (test code = CO2) 29 24-32 [place] 387242-06-29 09:09:00 Test Item Value Reference Range Interpretation Comments AGAP (test code = AGAP) 13.5 10.0-20.0 [place] 387242-06-29 09:09:00 Test Item Value Reference Range Interpretation Comments Calcium Lvl (test code = Calcium Lvl) 9.1 8.5-10.5 [place] 387242-06-29 09:09:00 Test Item Value Reference Range Interpretation Comments B/C Ratio (test code = B/C Ratio) 6 1 6-25 [place] 387242-06-29 09:09:00 Test Item Value Reference Range Interpretation Comments Total Protein (test code = Total 6.3 6.4-8.4 Protein) [place] 387242-06-29 09:09:00 Test Item Value Reference Range Interpretation Comments Albumin Lvl (test code = Albumin Lvl) 2.5 3.5-5.0 [facility] 46747HQVCW5031-34-08 09:09:00 Test Item Value Reference Range Interpretation Comments Globulin (test code = Globulin) 3.8 2.7-4.2 [place] 387242-06-29 09:09:00 Test Item Value Reference Range Interpretation Comments A/G Ratio (test code = A/G Ratio) 0.7 1 0.7-1.6 [place] 387242-06-29 09:09:00 Test Item Value Reference Range Interpretation Comments ALT (test code = ALT) 38 See_Comment [Auto mated message] The system which ge nerated this result transmit swathi reference range : <=65. The reference range was not used to interpr et this result as deny l/abnormal. [place] 387242-06-29 09:09:00 Test Item Value Reference Range Interpretation Comments AST (test code = AST) 31 See_Comment [Auto mated message] The system which ge nerated this result transmit swathi reference range : <=37. The reference range was not used to interpr et this result as deny l/abnormal. [place] 387242-06-29 09:09:00 Test Item Value Reference Range Interpretation Comments Alk Phos (test code = Alk Phos) 357 39-136 [place] 387242-06-29 09:09:00 Test Item Value Reference Range Interpretation Comments Bili Total (test code = Bili Total) 1.0 0.2-1.3 [place] 387242-06-29 09:09:00 Test Item Value Reference Range Interpretation Comments eGFR (test code = eGFR) 8 [facility] [id number] 09:09:00 Test Item Value Reference Range Interpretation Comments Magnesium Lvl (test code = Magnesium 2.0 1.8-2.4 Lvl) [place] 387242-06-29 09:09:00 Test Item Value Reference Range Interpretation Comments LDH (test code = LDH) 251 98-192 [facility] IKWTH7183-37-39 09:09:00 Test Item Value Reference Range Interpretation Comments Procalcitonin Lvl (test 0.51 See_Comment [Au tomated message] code = Procalcitonin Lvl) Th e system which generated this result transmitted ref erence range: <=0.10. The reference range was not used to interpr et this result as normal/abnormal . [place] 704462-06-29 09:09:00 Test Item Value Reference Range Interpretation Comments D-Dimer (test code = D-Dimer) 5.06 [place] 704462-06-29 09:09:00 Test Item Value Reference Range Interpretation Comments WBC (test code = WBC) 4.8 3.7-10.4 [place] 704462-06-29 09:09:00 Test Item Value Reference Range Interpretation Comments RBC (test code = RBC) 2.14 4.70-6.10 [place] [address]-06-29 09:09:00 Test Item Value Reference Range Interpretation Comments Hgb (test code = Hgb) 7.7 14.0-18.0 [place] [address]-06-29 09:09:00 Test Item Value Reference Range Interpretation Comments Hct (test code = Hct) 22.8 42.0-54.0 [place] 704462-06-29 09:09:00 Test Item Value Reference Range Interpretation Comments MCV (test code = MCV) 106.5 80.0-94.0 [place] [address]-06-29 09:09:00 Test Item Value Reference Range Interpretation Comments MCH (test code = MCH) 36.1 pg 27.0-31.0 [place] 704462-06-29 09:09:00 Test Item Value Reference Range Interpretation Comments MCHC (test code = MCHC) 33.9 32.0-36.0 [place] 704462-06-29 09:09:00 Test Item Value Reference Range Interpretation Comments RDW (test code = RDW) 21.8 11.5-14.5 [place] [address]-06-29 09:09:00 Test Item Value Reference Range Interpretation Comments Platelet (test code = Platelet) 176 133-450 [place] 704462-06-29 09:09:00 Test Item Value Reference Range Interpretation Comments MPV (test code = MPV) 8.2 7.4-10.4 [place] [address]-06-29 09:09:00 Test Item Value Reference Range Interpretation Comments Segs (test code = Segs) 83.6 45.0-75.0 [facility] HospitalYxtpberEADJTRBJYK6666-34-76 09:09:00 Test Item Value Reference Range Interpretation Comments Lymphocytes (test code = Lymphocytes) 10.7 20.0-40.0 [facility] HospitalEusomepBPCFEPLLHW9134-89-40 09:09:00 Test Item Value Reference Range Interpretation Comments Monocytes (test code = Monocytes) 4.9 2.0-12.0 [facility] HospitalNptlyakISDZLKBAIT6967-06-97 09:09:00 Test Item Value Reference Range Interpretation Comments Eosinophils (test code = 0.4 See_Comment [A utomated message] The Eosinophils) system which ge nerated this result tra nsmitted reference range : <=4.0. The reference r samantha was not used to int erpret this result as normal/abnormal . [facility] HospitalCgbarwzDTBVRVKOJI7557-92-92 09:09:00 Test Item Value Reference Range Interpretation Comments Basophils (test code = 0.4 See_Comment [Aut omated message] The Basophils) system which ge nerated this result tra nsmitted reference range : <=1.0. The reference r samantha was not used to int erpret this result as normal/abnormal . [facility] HospitalOwzsmwqCRZCJTCHGV8322-67-06 09:09:00 Test Item Value Reference Range Interpretation Comments Neutrophils # (test code = Neutrophils 4.0 1.5-8.1 #) [facility] HospitalAdfhjbaBNRREKPTSZ4746-87-04 09:09:00 Test Item Value Reference Range Interpretation Comments Lymphocytes # (test code = Lymphocytes 0.5 1.0-5.5 #) [facility] HospitalLuryenhQZXTLXBFZS9153-82-10 09:09:00 Test Item Value Reference Range Interpretation Comments Monocytes # (test code 0.2 See_Comment [Aut omated message] The = Monocytes #) system which generated this result tra nsmitted reference range : <=0.8. The reference r samantha was not used to int erpret this result as normal/abnormal . [facility] HospitalQcaheugALMFWBPRYB0364-23-46 09:09:00 Test Item Value Reference Range Interpretation Comments Macrocyte (test code = 1+ *ABN*(11/26/21 Macrocyte) 4:09 AM) [facility] HospitalTjihquqKBDMTASELH4001-37-60 09:09:00 Test Item Value Reference Range Interpretation Comments Interleukin 6 (test code = Interleukin 14.71 6) [place] [address]-06-29 09:09:00 Test Item Value Reference Range Interpretation Comments C-REACTIVE PROTEIN (test code = 95.9 C-REACTIVE PROTEIN) [place] 704462-06-28 12:33:00 Test Item Value Reference Range Interpretation Comments Segs (test code = Segs) 84.8 45.0-75.0 [place] 704462-06-28 12:33:00 Test Item Value Reference Range Interpretation Comments Lymphocytes (test code = Lymphocytes) 11.6 20.0-40.0 [place] 704462-06-28 12:33:00 Test Item Value Reference Range Interpretation Comments Monocytes (test code = Monocytes) 2.8 2.0-12.0 [place] 704462-06-28 12:33:00 Test Item Value Reference Range Interpretation Comments Eosinophils (test code = 0.4 See_Comment [A utomated message] The Eosinophils) system which ge nerated this result tra nsmitted reference range : <=4.0. The reference r samantha was not used to int erpret this result as normal/abnormal . [facility] HospitalFphiavuRPIXAQRRMW6938-44-31 12:33:00 Test Item Value Reference Range Interpretation Comments Basophils (test code = 0.4 See_Comment [Aut omated message] The Basophils) system which ge nerated this result tra nsmitted reference range : <=1.0. The reference r samantha was not used to int erpret this result as normal/abnormal . [place] 704462-06-28 12:33:00 Test Item Value Reference Range Interpretation Comments Neutrophils # (test code = Neutrophils 4.4 1.5-8.1 #) [place] 704462-06-28 12:33:00 Test Item Value Reference Range Interpretation Comments Lymphocytes # (test code = Lymphocytes 0.6 1.0-5.5 #) [place] 704462-06-28 12:33:00 Test Item Value Reference Range Interpretation Comments Monocytes # (test code 0.1 See_Comment [Aut omated message] The = Monocytes #) system which generated this result tra nsmitted reference range : <=0.8. The reference r samantha was not used to int erpret this result as normal/abnormal . [place] 704462-06-28 12:33:00 Test Item Value Reference Range Interpretation Comments Macrocyte (test code = 1+ *ABN*(11/25/21 Macrocyte) 7:33 AM) [facility] HospitalAmipgevCQXGESAYDD8145-83-78 12:33:00 Test Item Value Reference Range Interpretation Comments WBC (test code = WBC) 5.2 3.7-10.4 [facility] HospitalChdegbyPRWMTVSEQC2180-03-09 12:33:00 Test Item Value Reference Range Interpretation Comments RBC (test code = RBC) 2.18 4.70-6.10 [facility] HospitalTsfqkidWBFNUJBFWF4721-17-55 12:33:00 Test Item Value Reference Range Interpretation Comments Hgb (test code = Hgb) 7.8 14.0-18.0 [place] 704462-06-28 12:33:00 Test Item Value Reference Range Interpretation Comments Hct (test code = Hct) 23.6 42.0-54.0 [facility] HospitalGnsfbryFSQCQPIWHX9332-70-84 12:33:00 Test Item Value Reference Range Interpretation Comments MCV (test code = MCV) 108.4 80.0-94.0 [facility] HospitalFlfcxqoGHWSNJSNQH0858-56-24 12:33:00 Test Item Value Reference Range Interpretation Comments MCH (test code = MCH) 35.9 pg 27.0-31.0 [facility] HospitalUmrkhrmFCMPXNTVWW2309-50-37 12:33:00 Test Item Value Reference Range Interpretation Comments MCHC (test code = MCHC) 33.1 32.0-36.0 [facility] HospitalIihrpfvGEJOIBICPI8771-99-75 12:33:00 Test Item Value Reference Range Interpretation Comments RDW (test code = RDW) 21.5 11.5-14.5 [facility] HospitalFhasieyBIXBCBTHRR1138-00-46 12:33:00 Test Item Value Reference Range Interpretation Comments Platelet (test code = Platelet) 167 133-450 [facility] HospitalKpmszbcAORCXXGDZH8726-64-82 12:33:00 Test Item Value Reference Range Interpretation Comments MPV (test code = MPV) 7.6 7.4-10.4 [facility] HospitalDhrnqbpWWNOZTFRXJ6479-42-85 12:33:00 Test Item Value Reference Range Interpretation Comments Segs (test code = Segs) 84.8 45.0-75.0 [facility] HospitalNghjltoOWDFTEANEY9787-17-47 12:33:00 Test Item Value Reference Range Interpretation Comments Lymphocytes (test code = Lymphocytes) 11.6 20.0-40.0 [facility] HospitalEswhstcVLAEMCQIUV6654-47-55 12:33:00 Test Item Value Reference Range Interpretation Comments Monocytes (test code = Monocytes) 2.8 2.0-12.0 [place] 704462-06-28 12:33:00 Test Item Value Reference Range Interpretation Comments Eosinophils (test code = 0.4 See_Comment [A utomated message] The Eosinophils) system which ge nerated this result tra nsmitted reference range : <=4.0. The reference r samantha was not used to int erpret this result as normal/abnormal . [facility] HospitalIgfqfmbHJHGAWJVCQ5837-90-05 12:33:00 Test Item Value Reference Range Interpretation Comments Basophils (test code = 0.4 See_Comment [Aut omated message] The Basophils) system which ge nerated this result tra nsmitted reference range : <=1.0. The reference r samantha was not used to int erpret this result as normal/abnormal . [facility] HospitalLblaxhuPTWDHVEOTY5987-11-49 12:33:00 Test Item Value Reference Range Interpretation Comments Neutrophils # (test code = Neutrophils 4.4 1.5-8.1 #) [facility] HospitalCruvhzdLOQIKNIGBS8388-47-06 12:33:00 Test Item Value Reference Range Interpretation Comments Lymphocytes # (test code = Lymphocytes 0.6 1.0-5.5 #) [place] 704462-06-28 12:33:00 Test Item Value Reference Range Interpretation Comments Monocytes # (test code 0.1 See_Comment [Aut omated message] The = Monocytes #) system which generated this result tra nsmitted reference range : <=0.8. The reference r samantha was not used to int erpret this result as normal/abnormal . [facility] HospitalQtzitrgTGNOYKRRCS1273-48-08 12:33:00 Test Item Value Reference Range Interpretation Comments Macrocyte (test code = 1+ *ABN*(11/25/21 Macrocyte) 7:33 AM) [facility] HospitalAhljmvjQZSBLSGWLB3372-44-50 12:33:00 Test Item Value Reference Range Interpretation Comments WBC (test code = WBC) 5.2 3.7-10.4 [place] 704462-06-28 12:33:00 Test Item Value Reference Range Interpretation Comments RBC (test code = RBC) 2.18 4.70-6.10 [place] 704462-06-28 12:33:00 Test Item Value Reference Range Interpretation Comments Hgb (test code = Hgb) 7.8 14.0-18.0 [facility] HospitalYusuycnDFFKFQFYUJ4566-68-99 12:33:00 Test Item Value Reference Range Interpretation Comments Hct (test code = Hct) 23.6 42.0-54.0 [place] 704462-06-28 12:33:00 Test Item Value Reference Range Interpretation Comments MCV (test code = MCV) 108.4 80.0-94.0 [place] [address]-06-28 12:33:00 Test Item Value Reference Range Interpretation Comments MCH (test code = MCH) 35.9 pg 27.0-31.0 [facility] HospitalGwthuvdCPQYNVIGYL9102-67-58 12:33:00 Test Item Value Reference Range Interpretation Comments MCHC (test code = MCHC) 33.1 32.0-36.0 [place] 704462-06-28 12:33:00 Test Item Value Reference Range Interpretation Comments RDW (test code = RDW) 21.5 11.5-14.5 [facility] HospitalNhhuqrbJCTNNUZGOW4357-23-09 12:33:00 Test Item Value Reference Range Interpretation Comments Platelet (test code = Platelet) 167 133-450 [facility] HospitalFpvncpvCOJGZDSQHK7919-39-34 12:33:00 Test Item Value Reference Range Interpretation Comments MPV (test code = MPV) 7.6 7.4-10.4 [facility]2022-06-28 11:17:00 Test Item Value Reference Range Interpretation Comments Vitamin B12 Lvl (test code = Vitamin 1508 B12 Lvl) [facility]2022-06-28 11:17:00 Test Item Value Reference Range Interpretation Comments Folate Lvl (test code = Folate Lvl) 22.3 [facility]2022-06-28 11:17:00 Test Item Value Reference Range Interpretation Comments Ferritin Lvl (test code = Ferritin Lvl) 1423 31-472 [facility]2022-06-28 11:17:00 Test Item Value Reference Range Interpretation Comments Glucose Lvl (test code = Glucose Lvl) 205 70-99 [facility]2022-06-28 11:17:00 Test Item Value Reference Range Interpretation Comments BUN (test code = BUN) 60 7-22 [place] [address]-06-28 11:17:00 Test Item Value Reference Range Interpretation Comments Creatinine Lvl (test code = Creatinine 8.46 0.50-1.40 Lvl) [place] 387242-06-28 11:17:00 Test Item Value Reference Range Interpretation Comments Sodium Lvl (test code = Sodium Lvl) 131 135-145 [place] 387242-06-28 11:17:00 Test Item Value Reference Range Interpretation Comments Potassium Lvl (test code = Potassium 5.2 3.5-5.1 Lvl) [place] [address]-06-28 11:17:00 Test Item Value Reference Range Interpretation Comments Chloride Lvl (test code = Chloride Lvl) 93 95-109 [place] [address]-06-28 11:17:00 Test Item Value Reference Range Interpretation Comments CO2 (test code = CO2) 29 24-32 [place] 387242-06-28 11:17:00 Test Item Value Reference Range Interpretation Comments Calcium Lvl (test code = Calcium Lvl) 8.7 8.5-10.5 [place] 387242-06-28 11:17:00 Test Item Value Reference Range Interpretation Comments Total Protein (test code = Total 6.0 6.4-8.4 Protein) [place] 387242-06-28 11:17:00 Test Item Value Reference Range Interpretation Comments Albumin Lvl (test code = Albumin Lvl) 2.6 3.5-5.0 [place] [address]-06-28 11:17:00 Test Item Value Reference Range Interpretation Comments ALT (test code = ALT) 43 See_Comment [Auto mated message] The system which ge nerated this result transmit swathi reference range : <=65. The reference range was not used to interpr et this result as deny l/abnormal. [place] 387242-06-28 11:17:00 Test Item Value Reference Range Interpretation Comments AST (test code = AST) 35 See_Comment [Auto mated message] The system which ge nerated this result transmit swathi reference range : <=37. The reference range was not used to interpr et this result as deny l/abnormal. [facility] VVCTZ0794-42-52 11:17:00 Test Item Value Reference Range Interpretation Comments Alk Phos (test code = Alk Phos) 385 39-136 [facility]2022-06-28 11:17:00 Test Item Value Reference Range Interpretation Comments Bili Total (test code = Bili Total) 1.2 0.2-1.3 [facility]2022-06-28 11:17:00 Test Item Value Reference Range Interpretation Comments AGAP (test code = AGAP) 14.2 10.0-20.0 [facility] HospitalSlideShareWAKEMED CARY HOSPITALBCVTF2366-58-87 11:17:00 Test Item Value Reference Range Interpretation Comments B/C Ratio (test code = B/C Ratio) 7 1 6-25 [facility] HospitalSlideShareWAKEMED CARY HOSPITALMQONO0226-36-81 11:17:00 Test Item Value Reference Range Interpretation Comments Globulin (test code = Globulin) 3.4 2.7-4.2 [facility]2022-06-28 11:17:00 Test Item Value Reference Range Interpretation Comments A/G Ratio (test code = A/G Ratio) 0.8 1 0.7-1.6 [facility]SlideShareWAKEMED CARY HOSPITALNJYKC2376-68-56 11:17:00 Test Item Value Reference Range Interpretation Comments eGFR (test code = eGFR) 6 [facility]2022-06-28 11:17:00 Test Item Value Reference Range Interpretation Comments Magnesium Lvl (test code = Magnesium 1.9 1.8-2.4 Lvl) [facility]2022-06-28 11:17:00 Test Item Value Reference Range Interpretation Comments LDH (test code = LDH) 297 98-192 [facility]2022-06-28 11:17:00 Test Item Value Reference Range Interpretation Comments Procalcitonin Lvl (test 0.63 See_Comment [Au tomated message] code = Procalcitonin Lvl) Th e system which generated this result transmitted ref erence range: <=0.10. The reference range was not used to interpr et this result as normal/abnormal . [facility]evilleStlobqyWAPWLZJRXN2557-06-70 11:17:00 Test Item Value Reference Range Interpretation Comments D-Dimer (test code = D-Dimer) 5.33 [facility]evilleFzjxeqaTCKAJJSQYS4146-97-32 11:17:00 Test Item Value Reference Range Interpretation Comments Hep Bs Ag (test code Negative *NA*(11/25/21 = Hep Bs Ag) 6:17 AM) [place] 231742-06-28 11:17:00 Test Item Value Reference Range Interpretation Comments C-REACTIVE PROTEIN (test code = 134.0 C-REACTIVE PROTEIN) [place] 231742-06-28 11:17:00 Test Item Value Reference Range Interpretation Comments Interleukin 6 (test code = Interleukin 25.99 6) [facility]2022-06-28 11:17:00 Test Item Value Reference Range Interpretation Comments Vitamin B12 Lvl (test code = Vitamin 1508 B12 Lvl) [place] 489172-06-28 11:17:00 Test Item Value Reference Range Interpretation Comments Folate Lvl (test code = Folate Lvl) 22.3 [facility]2022-06-28 11:17:00 Test Item Value Reference Range Interpretation Comments Ferritin Lvl (test code = Ferritin Lvl) 1423 22275 [facility]2022-06-28 11:17:00 Test Item Value Reference Range Interpretation Comments Glucose Lvl (test code = Glucose Lvl) 205 70-99 [facility]2022-06-28 11:17:00 Test Item Value Reference Range Interpretation Comments BUN (test code = BUN) 60 7-22 [place] 387242-06-28 11:17:00 Test Item Value Reference Range Interpretation Comments Creatinine Lvl (test code = Creatinine 8.46 0.50-1.40 Lvl) [place] 387242-06-28 11:17:00 Test Item Value Reference Range Interpretation Comments Sodium Lvl (test code = Sodium Lvl) 131 135-145 [place] 387242-06-28 11:17:00 Test Item Value Reference Range Interpretation Comments Potassium Lvl (test code = Potassium 5.2 3.5-5.1 Lvl) [facility]2022-06-28 11:17:00 Test Item Value Reference Range Interpretation Comments Chloride Lvl (test code = Chloride Lvl) 93 95-109 [place] 387242-06-28 11:17:00 Test Item Value Reference Range Interpretation Comments CO2 (test code = CO2) 29 24-32 [facility]evilleCHEM [id number] 11:17:00 Test Item Value Reference Range Interpretation Comments Calcium Lvl (test code = Calcium Lvl) 8.7 8.5-10.5 [facility] [id number] 11:17:00 Test Item Value Reference Range Interpretation Comments Total Protein (test code = Total 6.0 6.4-8.4 Protein) [place] 387242-06-28 11:17:00 Test Item Value Reference Range Interpretation Comments Albumin Lvl (test code = Albumin Lvl) 2.6 3.5-5.0 [facility] [id number] 11:17:00 Test Item Value Reference Range Interpretation Comments ALT (test code = ALT) 43 See_Comment [Auto mated message] The system which ge nerated this result transmit swathi reference range : <=65. The reference range was not used to interpr et this result as deny l/abnormal. [facility] [id number] 11:17:00 Test Item Value Reference Range Interpretation Comments AST (test code = AST) 35 See_Comment [Auto mated message] The system which ge nerated this result transmit swathi reference range : <=37. The reference range was not used to interpr et this result as deny l/abnormal. [facility] [id number] 11:17:00 Test Item Value Reference Range Interpretation Comments Alk Phos (test code = Alk Phos) 385 39-136 [facility] [id number] 11:17:00 Test Item Value Reference Range Interpretation Comments Bili Total (test code = Bili Total) 1.2 0.2-1.3 [facility] [id number] 11:17:00 Test Item Value Reference Range Interpretation Comments AGAP (test code = AGAP) 14.2 10.0-20.0 [facility] [employer] [id number] 11:17:00 Test Item Value Reference Range Interpretation Comments B/C Ratio (test code = B/C Ratio) 7 1 6-25 [facility] [id number] 11:17:00 Test Item Value Reference Range Interpretation Comments Globulin (test code = Globulin) 3.4 2.7-4.2 [facility] [employer] [id number] 11:17:00 Test Item Value Reference Range Interpretation Comments A/G Ratio (test code = A/G Ratio) 0.8 1 0.7-1.6 [facility]2022-06-28 11:17:00 Test Item Value Reference Range Interpretation Comments eGFR (test code = eGFR) 6 [facility]2022-06-28 11:17:00 Test Item Value Reference Range Interpretation Comments Magnesium Lvl (test code = Magnesium 1.9 1.8-2.4 Lvl) [facility]2022-06-28 11:17:00 Test Item Value Reference Range Interpretation Comments LDH (test code = LDH) 297 98-192 [facility]2022-06-28 11:17:00 Test Item Value Reference Range Interpretation Comments Procalcitonin Lvl (test 0.63 See_Comment [Au tomated message] code = Procalcitonin Lvl) e system which generated this result transmitted ref erence range: <=0.10. The reference range was not used to interpr et this result as normal/abnormal . [facility] BeevillePgoknqnOYBXDIFCXH7216-78-67 11:17:00 Test Item Value Reference Range Interpretation Comments D-Dimer (test code = D-Dimer) 5.33 [facility] BeevilleLmxvnkeTICVFANOEE5186-66-51 11:17:00 Test Item Value Reference Range Interpretation Comments Hep Bs Ag (test code Negative *NA*(11/25/21 = Hep Bs Ag) 6:17 AM) [facility] BeevilleUxnocjeHTJECRXELP8383-87-78 11:17:00 Test Item Value Reference Range Interpretation Comments C-REACTIVE PROTEIN (test code = 134.0 C-REACTIVE PROTEIN) [facility] BeevilleHuelymgANWDIQIDIZ3168-93-22 11:17:00 Test Item Value Reference Range Interpretation Comments Interleukin 6 (test code = Interleukin 25.99 6) [facility] [id number] 05:52:00 Test Item Value Reference Range Interpretation Comments RBC product (test code Product available = RBC product) 4(11/25/21 12:52 AM) [facility] [id number] 05:52:00 Test Item Value Reference Range Interpretation Comments RBC product (test code Product available = RBC product) 4(11/25/21 12:52 AM) [facility] BeevilleBmwrdjlEDBSLGHUMA4513-03-44 05:43:00 Test Item Value Reference Range Interpretation Comments Coronavirus (COVID-19) Detected MANUEL (test code = 8*ABN*(11/25/21 12:43 Coronavirus (COVID-19) AM) MANUEL) [facility] HospitalYxqgoclWHPDJWPJFZ1021-35-54 05:43:00 Test Item Value Reference Range Interpretation Comments Coronavirus (COVID-19) Detected MANUEL (test code = 8*ABN*(11/25/21 12:43 Coronavirus (COVID-19) AM) MANUEL) [facility] [employer] GroupANC[facility] [id number] 05:23:00 Test Item Value Reference Range Interpretation Comments Occult Bld Stl (test Negative (11/25/21 12:23 code = Occult Bld Stl) AM) [facility] [id number] 05:23:00 Test Item Value Reference Range Interpretation Comments Occult Bld Stl (test Negative (11/25/21 12:23 code = Occult Bld Stl) AM) [employer] [id number] 04:12:00 Test Item Value Reference Range Interpretation Comments ABO/Rh (test code = ABO/Rh) AB POS [facility] [employer] [id number] 04:12:00 Test Item Value Reference Range Interpretation Comments Antibody Scrn (test Negative (11/24/21 code = Antibody Scrn) 11:12 PM) [facility] [id number] 04:12:00 Test Item Value Reference Range Interpretation Comments Total CK (test code = Total CK) 86 12-191 [facility] [employer]2022-06-28 04:12:00 Test Item Value Reference Range Interpretation Comments HS Troponin I (test code = HS Troponin 316 I) [employer] [id number] 04:12:00 Test Item Value Reference Range Interpretation Comments Glucose Lvl (test code = Glucose Lvl) 261 70-99 [employer]2022-06-28 04:12:00 Test Item Value Reference Range Interpretation Comments BUN (test code = BUN) 60 7-22 [employer]2022-06-28 04:12:00 Test Item Value Reference Range Interpretation Comments Creatinine Lvl (test code = Creatinine 8.49 0.50-1.40 Lvl) [employer]2022-06-28 04:12:00 Test Item Value Reference Range Interpretation Comments Sodium Lvl (test code = Sodium Lvl) 133 135-145 [place] 387242-06-28 04:12:00 Test Item Value Reference Range Interpretation Comments Potassium Lvl (test code = Potassium 4.9 3.5-5.1 Lvl) [place] 387242-06-28 04:12:00 Test Item Value Reference Range Interpretation Comments Chloride Lvl (test code = Chloride Lvl) 93 95-109 [place] 387242-06-28 04:12:00 Test Item Value Reference Range Interpretation Comments CO2 (test code = CO2) 31 24-32 [place] 387242-06-28 04:12:00 Test Item Value Reference Range Interpretation Comments Calcium Lvl (test code = Calcium Lvl) 9.1 8.5-10.5 [place] 387242-06-28 04:12:00 Test Item Value Reference Range Interpretation Comments Total Protein (test code = Total 6.8 6.4-8.4 Protein) [place] 387242-06-28 04:12:00 Test Item Value Reference Range Interpretation Comments Albumin Lvl (test code = Albumin Lvl) 2.5 3.5-5.0 [place] 387242-06-28 04:12:00 Test Item Value Reference Range Interpretation Comments ALT (test code = ALT) 51 See_Comment [Auto mated message] The system which ge nerated this result transmit swathi reference range : <=65. The reference range was not used to interpr et this result as deny l/abnormal. [place] 387242-06-28 04:12:00 Test Item Value Reference Range Interpretation Comments AST (test code = AST) 36 See_Comment [Auto mated message] The system which ge nerated this result transmit swathi reference range : <=37. The reference range was not used to interpr et this result as deny l/abnormal. [place] 387242-06-28 04:12:00 Test Item Value Reference Range Interpretation Comments Alk Phos (test code = Alk Phos) 383 39-136 [place] 387242-06-28 04:12:00 Test Item Value Reference Range Interpretation Comments Bili Total (test code = Bili Total) 1.1 0.2-1.3 [place] 387242-06-28 04:12:00 Test Item Value Reference Range Interpretation Comments AGAP (test code = AGAP) 13.9 10.0-20.0 [place] 387242-06-28 04:12:00 Test Item Value Reference Range Interpretation Comments B/C Ratio (test code = B/C Ratio) 7 1 6-25 [place] 387242-06-28 04:12:00 Test Item Value Reference Range Interpretation Comments Globulin (test code = Globulin) 4.3 2.7-4.2 [place] 387242-06-28 04:12:00 Test Item Value Reference Range Interpretation Comments A/G Ratio (test code = A/G Ratio) 0.6 1 0.7-1.6 [place] 387242-06-28 04:12:00 Test Item Value Reference Range Interpretation Comments eGFR (test code = eGFR) 5 [place] 387242-06-28 04:12:00 Test Item Value Reference Range Interpretation Comments Procalcitonin Lvl (test 0.69 See_Comment [Au tomated message] code = Procalcitonin Lvl) Th e system which generated this result transmitted ref erence range: <=0.10. The reference range was not used to interpr et this result as normal/abnormal . [facility] HospitalVujwievLWTQMCHMEK7409-66-08 04:12:00 Test Item Value Reference Range Interpretation Comments WBC (test code = WBC) 4.1 3.7-10.4 [place] 704462-06-28 04:12:00 Test Item Value Reference Range Interpretation Comments RBC (test code = RBC) 1.78 4.70-6.10 [place] 704462-06-28 04:12:00 Test Item Value Reference Range Interpretation Comments Hgb (test code = Hgb) 6.5 14.0-18.0 [place] 704462-06-28 04:12:00 Test Item Value Reference Range Interpretation Comments Hct (test code = Hct) 19.5 42.0-54.0 [place] 704462-06-28 04:12:00 Test Item Value Reference Range Interpretation Comments MCV (test code = MCV) 110.0 80.0-94.0 [place] 704462-06-28 04:12:00 Test Item Value Reference Range Interpretation Comments MCH (test code = MCH) 36.5 pg 27.0-31.0 [facility] HospitalIbocjeyMINMQWUDLN5061-55-81 04:12:00 Test Item Value Reference Range Interpretation Comments MCHC (test code = MCHC) 33.2 32.0-36.0 [facility] HospitalAysmuzvLHKCFDOAVH9626-43-28 04:12:00 Test Item Value Reference Range Interpretation Comments RDW (test code = RDW) 19.0 11.5-14.5 [facility] HospitalCacaqjkNYPZBQIHJT9004-24-95 04:12:00 Test Item Value Reference Range Interpretation Comments Platelet (test code = Platelet) 180 133-450 [facility] HospitalGbkdvsgLZKWOXFAGM3227-86-18 04:12:00 Test Item Value Reference Range Interpretation Comments MPV (test code = MPV) 8.3 7.4-10.4 [facility] HospitalIblsgsyLHPVDWPXMG7431-98-95 04:12:00 Test Item Value Reference Range Interpretation Comments PTT (test code = PTT) 45.4 s 22.9-35.8 [facility] HospitalFpkmzybCWYCEMIOCO8024-33-40 04:12:00 Test Item Value Reference Range Interpretation Comments PT (test code = PT) 19.1 s 12.0-14.7 [facility] HospitalCxyouzbMBKMOSGTWK5004-77-56 04:12:00 Test Item Value Reference Range Interpretation Comments INR (test code = INR) 1.62 1 0.85-1.17 [facility] HospitalNlcyghhOEOTJSLFVO8254-49-55 04:12:00 Test Item Value Reference Range Interpretation Comments RBC Morph (test code = See Note (11/24/21 RBC Morph) 11:12 PM) [facility] HospitalJqcxfipDDGHDIPIYY9178-82-74 04:12:00 Test Item Value Reference Range Interpretation Comments Plt Morph (test code = Normal (11/24/21 11:12 Plt Morph) PM) [facility] HospitalMfzpbabAZZQBDCFSF3764-27-49 04:12:00 Test Item Value Reference Range Interpretation Comments Segs (test code = Segs) 72.2 45.0-75.0 [facility] HospitalMhlohfmTKCEZPTPNP5478-15-64 04:12:00 Test Item Value Reference Range Interpretation Comments Lymphocytes (test code = Lymphocytes) 16.2 20.0-40.0 [facility] HospitalUnwomlwKBGBRRBYXS4892-03-82 04:12:00 Test Item Value Reference Range Interpretation Comments Monocytes (test code = Monocytes) 8.0 2.0-12.0 [place] [address]-06-28 04:12:00 Test Item Value Reference Range Interpretation Comments Eosinophils (test code = 2.7 See_Comment [A utomated message] The Eosinophils) system which ge nerated this result tra nsmitted reference range : <=4.0. The reference r samantha was not used to int erpret this result as normal/abnormal . [place] 704462-06-28 04:12:00 Test Item Value Reference Range Interpretation Comments Basophils (test code = 0.9 See_Comment [Aut omated message] The Basophils) system which ge nerated this result tra nsmitted reference range : <=1.0. The reference r samantha was not used to int erpret this result as normal/abnormal . [place] 704462-06-28 04:12:00 Test Item Value Reference Range Interpretation Comments Neutrophils # (test code = Neutrophils 2.9 1.5-8.1 #) [place] [address]-06-28 04:12:00 Test Item Value Reference Range Interpretation Comments Lymphocytes # (test code = Lymphocytes 0.7 1.0-5.5 #) [place] [address]-06-28 04:12:00 Test Item Value Reference Range Interpretation Comments Monocytes # (test code 0.3 See_Comment [Aut omated message] The = Monocytes #) system which generated this result tra nsmitted reference range : <=0.8. The reference r samantha was not used to int erpret this result as normal/abnormal . [place] 704462-06-28 04:12:00 Test Item Value Reference Range Interpretation Comments Eosinophils # (test code 0.1 See_Comment [A utomated message] The = Eosinophils #) system whic h generated this result tra nsmitted reference range : <=0.5. The reference r samantha was not used to int erpret this result as normal/abnormal . [place] 704462-06-28 04:12:00 Test Item Value Reference Range Interpretation Comments Anisocyte (test code = 1+ *ABN*(11/24/21 Anisocyte) 11:12 PM) [place] 704462-06-28 04:12:00 Test Item Value Reference Range Interpretation Comments Macrocyte (test code = 1+ *ABN*(11/24/21 Macrocyte) 11:12 PM) [facility] HospitalGzmdzxjHIWEIZPPFO2036-86-98 04:12:00 Test Item Value Reference Range Interpretation Comments Microcyte (test code = 1+ *ABN*(11/24/21 Microcyte) 11:12 PM) [facility] [employer] [id number] 04:12:00 Test Item Value Reference Range Interpretation Comments ABO/Rh (test code = ABO/Rh) AB POS [facility] [employer] [id number] 04:12:00 Test Item Value Reference Range Interpretation Comments Antibody Scrn (test Negative (11/24/21 code = Antibody Scrn) 11:12 PM) [facility] VEBAAOX2259-85-76 04:12:00 Test Item Value Reference Range Interpretation Comments Total CK (test code = Total CK) 86 12-191 [facility]Varicent Software [id number] 04:12:00 Test Item Value Reference Range Interpretation Comments HS Troponin I (test code = HS Troponin 316 I) [facility] [employer] [id number] 04:12:00 Test Item Value Reference Range Interpretation Comments Glucose Lvl (test code = Glucose Lvl) 261 70-99 [facility] [employer]2022-06-28 04:12:00 Test Item Value Reference Range Interpretation Comments BUN (test code = BUN) 60 7-22 [facility] [employer]2022-06-28 04:12:00 Test Item Value Reference Range Interpretation Comments Creatinine Lvl (test code = Creatinine 8.49 0.50-1.40 Lvl) [facility] [employer]2022-06-28 04:12:00 Test Item Value Reference Range Interpretation Comments Sodium Lvl (test code = Sodium Lvl) 133 135-145 [facility] [employer]2022-06-28 04:12:00 Test Item Value Reference Range Interpretation Comments Potassium Lvl (test code = Potassium 4.9 3.5-5.1 Lvl) [facility] [employer]2022-06-28 04:12:00 Test Item Value Reference Range Interpretation Comments Chloride Lvl (test code = Chloride Lvl) 93 95-109 [facility] [employer]2022-06-28 04:12:00 Test Item Value Reference Range Interpretation Comments CO2 (test code = CO2) 31 24-32 [place] 387242-06-28 04:12:00 Test Item Value Reference Range Interpretation Comments Calcium Lvl (test code = Calcium Lvl) 9.1 8.5-10.5 [place] 387242-06-28 04:12:00 Test Item Value Reference Range Interpretation Comments Total Protein (test code = Total 6.8 6.4-8.4 Protein) [place] 387242-06-28 04:12:00 Test Item Value Reference Range Interpretation Comments Albumin Lvl (test code = Albumin Lvl) 2.5 3.5-5.0 [place] 387242-06-28 04:12:00 Test Item Value Reference Range Interpretation Comments ALT (test code = ALT) 51 See_Comment [Auto mated message] The system which ge nerated this result transmit swathi reference range : <=65. The reference range was not used to interpr et this result as deny l/abnormal. [place] 387242-06-28 04:12:00 Test Item Value Reference Range Interpretation Comments AST (test code = AST) 36 See_Comment [Auto mated message] The system which ge nerated this result transmit swathi reference range : <=37. The reference range was not used to interpr et this result as deny l/abnormal. [place] 387242-06-28 04:12:00 Test Item Value Reference Range Interpretation Comments Alk Phos (test code = Alk Phos) 383 39-136 [place] 387242-06-28 04:12:00 Test Item Value Reference Range Interpretation Comments Bili Total (test code = Bili Total) 1.1 0.2-1.3 [place] 387242-06-28 04:12:00 Test Item Value Reference Range Interpretation Comments AGAP (test code = AGAP) 13.9 10.0-20.0 [place] 387242-06-28 04:12:00 Test Item Value Reference Range Interpretation Comments B/C Ratio (test code = B/C Ratio) 7 1 6-25 [place] 387242-06-28 04:12:00 Test Item Value Reference Range Interpretation Comments Globulin (test code = Globulin) 4.3 2.7-4.2 [facility]2022-06-28 04:12:00 Test Item Value Reference Range Interpretation Comments A/G Ratio (test code = A/G Ratio) 0.6 1 0.7-1.6 [facility]2022-06-28 04:12:00 Test Item Value Reference Range Interpretation Comments eGFR (test code = eGFR) 5 [facility]2022-06-28 04:12:00 Test Item Value Reference Range Interpretation Comments Procalcitonin Lvl (test 0.69 See_Comment [Au tomated message] code = Procalcitonin Lvl) Th e system which generated this result transmitted ref erence range: <=0.10. The reference range was not used to interpr et this result as normal/abnormal . [facility] HospitalOwrqsqqCNPGDPITKT1261-00-16 04:12:00 Test Item Value Reference Range Interpretation Comments WBC (test code = WBC) 4.1 3.7-10.4 [facility] HospitalNlcjocbJSAOISBGHS1891-19-01 04:12:00 Test Item Value Reference Range Interpretation Comments RBC (test code = RBC) 1.78 4.70-6.10 [facility] HospitalKyzyqlvGJEQAYQWDW2394-55-22 04:12:00 Test Item Value Reference Range Interpretation Comments Hgb (test code = Hgb) 6.5 14.0-18.0 [facility] HospitalEjsotltVHIBCTYMYV6438-16-18 04:12:00 Test Item Value Reference Range Interpretation Comments Hct (test code = Hct) 19.5 42.0-54.0 [place] 704462-06-28 04:12:00 Test Item Value Reference Range Interpretation Comments MCV (test code = MCV) 110.0 80.0-94.0 [place] 704462-06-28 04:12:00 Test Item Value Reference Range Interpretation Comments MCH (test code = MCH) 36.5 pg 27.0-31.0 [facility] HospitalEmjajxhDBNEJIZWVJ7657-78-47 04:12:00 Test Item Value Reference Range Interpretation Comments MCHC (test code = MCHC) 33.2 32.0-36.0 [facility] HospitalVhzytouWGRNYVQUSW5691-98-72 04:12:00 Test Item Value Reference Range Interpretation Comments RDW (test code = RDW) 19.0 11.5-14.5 [place] 704462-06-28 04:12:00 Test Item Value Reference Range Interpretation Comments Platelet (test code = Platelet) 180 133-450 [facility] HospitalRgzwndnCZNJXJABAW2801-12-20 04:12:00 Test Item Value Reference Range Interpretation Comments MPV (test code = MPV) 8.3 7.4-10.4 [facility] HospitalNvsptfwUKYOKYLIDW6471-41-38 04:12:00 Test Item Value Reference Range Interpretation Comments PTT (test code = PTT) 45.4 s 22.9-35.8 [place] 704462-06-28 04:12:00 Test Item Value Reference Range Interpretation Comments PT (test code = PT) 19.1 s 12.0-14.7 [place] 704462-06-28 04:12:00 Test Item Value Reference Range Interpretation Comments INR (test code = INR) 1.62 1 0.85-1.17 [place] 704462-06-28 04:12:00 Test Item Value Reference Range Interpretation Comments RBC Morph (test code = See Note (11/24/21 RBC Morph) 11:12 PM) [facility] HospitalJfnqkisMBIPXKLVOE2081-26-62 04:12:00 Test Item Value Reference Range Interpretation Comments Plt Morph (test code = Normal (11/24/21 11:12 Plt Morph) PM) [facility] HospitalPpmpudjRJYTFDSPUA3695-82-93 04:12:00 Test Item Value Reference Range Interpretation Comments Segs (test code = Segs) 72.2 45.0-75.0 [facility] HospitalKlrtvwkNPYDGWLENO2252-01-17 04:12:00 Test Item Value Reference Range Interpretation Comments Lymphocytes (test code = Lymphocytes) 16.2 20.0-40.0 [place] 704462-06-28 04:12:00 Test Item Value Reference Range Interpretation Comments Monocytes (test code = Monocytes) 8.0 2.0-12.0 [place] 704462-06-28 04:12:00 Test Item Value Reference Range Interpretation Comments Eosinophils (test code = 2.7 See_Comment [A utomated message] The Eosinophils) system which ge nerated this result tra nsmitted reference range : <=4.0. The reference r samantha was not used to int erpret this result as normal/abnormal . [facility] HospitalRlskbqaPDYHMNPEDP0726-22-18 04:12:00 Test Item Value Reference Range Interpretation Comments Basophils (test code = 0.9 See_Comment [Aut omated message] The Basophils) system which ge nerated this result tra nsmitted reference range : <=1.0. The reference r samantha was not used to int erpret this result as normal/abnormal . [facility] HospitalUneubbhSEJWKLJHMA8309-61-31 04:12:00 Test Item Value Reference Range Interpretation Comments Neutrophils # (test code = Neutrophils 2.9 1.5-8.1 #) [facility]AudamhmVTGWIKXYAX4159-69-22 04:12:00 Test Item Value Reference Range Interpretation Comments Lymphocytes # (test code = Lymphocytes 0.7 1.0-5.5 #) [facility] [id number] 04:12:00 Test Item Value Reference Range Interpretation Comments Monocytes # (test code 0.3 See_Comment [Aut omated message] The = Monocytes #) system which generated this result tra nsmitted reference range : <=0.8. The reference r samantha was not used to int erpret this result as normal/abnormal . [facility] [id number] 04:12:00 Test Item Value Reference Range Interpretation Comments Eosinophils # (test code 0.1 See_Comment [A utomated message] The = Eosinophils #) system whic h generated this result tra nsmitted reference range : <=0.5. The reference r samantha was not used to int erpret this result as normal/abnormal . [facility] [id number] 04:12:00 Test Item Value Reference Range Interpretation Comments Anisocyte (test code = 1+ *ABN*(11/24/21 Anisocyte) 11:12 PM) [facility] [id number] 04:12:00 Test Item Value Reference Range Interpretation Comments Macrocyte (test code = 1+ *ABN*(11/24/21 Macrocyte) 11:12 PM) [facility] [id number] 04:12:00 Test Item Value Reference Range Interpretation Comments Microcyte (test code = 1+ *ABN*(11/24/21 Microcyte) 11:12 PM) [facility] HospitalOGLOBIN [id number] 00:00:00 Test Item Value Reference Range Interpretation Comments A1C (test code = 4548-4) 8.8 HEMOGLOBIN [id number] 00:00:00 Test Item Value Reference Range Interpretation Comments A1C (test code = 4548-4) 8.3 HEMOGLOBIN [id number] 00:00:00 Test Item Value Reference Range Interpretation Comments A1C (test code = 4548-4) 10.3
--- NOTE | 2022-09-29 20:01 | ER ---
Nurse's Notes [facility] Name: Guzman Mayers Age: 77 yrs Sex: Male : 1945 Arrival Date: 09/29/2022 Time: 18:14 Bed 3 Private MD: Naveed Fortune Diagnosis: Anemia, unspecified Presentation: 09/29 18:26 Chief complaint: Patient's son or daughter states: Sent to ED by Dr Galeano for a Hgb vg1 of 5.8. Pt states feeling 'really tired' and back pain. Ebola Screen: Patient negative for fever greater than or equal to 101.5 degrees Fahrenheit, and additional compatible Ebola Virus Disease symptoms Patient denies exposure to infectious person. Patient denies travel to an Ebola-affected area in the 21 days before illness onset. Initial Sepsis Screen: Does the patient meet any 2 criteria? No. Patient's initial sepsis screen is negative. Does the patient have a suspected source of infection? No. Patient's initial sepsis screen is negative. Risk Assessment: Do you want to hurt yourself or someone else? Patient reports no desire to harm self or others. Onset of symptoms was September 29, 2022. 18:26 Method Of Arrival: Wheelchair vg1 18:26 Acuity: CHICHO 3 vg1 22:05 Coronavirus screen: Client denies travel out of the [place] in the last 14 days. At this jb4 time, the client does not indicate any symptoms associated with coronavirus-19. Triage Assessment: 18:28 General: Appears in no apparent distress. uncomfortable, Behavior is calm, cooperative. vg1 Pain: Complains of pain in back. Cardiovascular: Dialysis shunt: in the left arm, with palpable thrill, with auscultated bruit. Historical: - Allergies: 18:28 Codeine; vg1 18:28 GABAPENTIN; vg1 - PMHx: 18:28 ADD/ADHD; CHF; CKD; COPD; Diabetes - IDDM; Dialysis; MWF; dialysis tues, thurs, sat, vg1 uses o2 when sleeping.; High Cholesterol; HTN; Hypertension; - Immunization history:: Adult Immunizations up to date. Screenin:04 [facility] ED Fall Risk Assessment (Adult) History of falling in the last 3 months, jb4 including since admission No falls in past 3 months (0 pts). Abuse screen: Denies threats or abuse. Denies injuries from another. Nutritional screening: No deficits noted. Tuberculosis screening: No symptoms or risk factors identified. Assessment: 19:20 Reassessment: Patient appears in no apparent distress at this time. Patient and/or jb4 family updated on plan of care and expected duration. Pain level reassessed. Patient is alert, oriented x 3, equal unlabored respirations, skin warm/dry/pink. 20:30 Reassessment: Patient appears in no apparent distress at this time. Patient and/or jb4 family updated on plan of care and expected duration. Pain level reassessed. Patient is alert, oriented x 3, equal unlabored respirations, skin warm/dry/pink. 21:17 Reassessment: attempted to call report, instructed to wait for call back. jb4 Vital Signs: 18:26 BP 111 / 79; Pulse 76; Resp 18; Temp 98.2; Pulse Ox 97% on R/A; Weight 73.03 kg; Height vg1 5 ft. 10 in. ; 21:03 BP 106 / 47; Pulse 56; Resp 16; Pulse Ox 100% on 2 lpm NC; jb4 18:26 Body Mass Index 23.10 (73.03 kg, 177.8 cm) vg1 ED Course: 18:19 Patient arrived in ED. am2 18:19 Naveed Fortune DO is Private Physician. am2 18:19 Mohinder Valenzuela MD is Attending Physician. bs3 18:28 Triage completed. vg1 18:28 Arm band placed on. vg1 19:34 Jonny Alonso, GILSON is Primary Nurse. jb4 19:45 Patient has correct armband on for positive identification. Bed in low position. Call jb4 light in reach. Side rails up X 1. 19:45 Initial lab(s) drawn, by me, sent to lab. Inserted saline lock: 18 gauge in right jb4 forearm, using aseptic technique. Blood collected. 19:55 Type And Screen Sent. jb4 19:55 Comprehensive Metabolic Panel Sent. jb4 19:55 CBC with Diff Sent. jb4 20:00 Wendi Ruiz MD is Hospitalizing Provider. bs3 20:01 Type And Screen Sent. jb4 20:01 Comprehensive Metabolic Panel Sent. jb4 20:01 CBC with Diff Sent. jb4 22:04 No provider procedures requiring assistance completed. Patient admitted, IV remains in jb4 place. intact, No redness/swelling at site. Administered Medications: 20:10 Drug: HYDROmorphone PO 1 mg Route: PO; jb4 Medication: 22:05 VIS not applicable for this client. jb4 Outcome: 20:01 Decision to Hospitalize by Provider. bs3 22:04 Admitted to Med/surg accompanied by tech, via stretcher. jb4 22:04 Condition: stable 22:04 Instructed on the need for admit. 22:05 Patient left the ED. jb4 Signatures: Jonny Alonso, RN RN jb4 Juana Keys Victoria RN RN vg1 Mohinder Valenzuela MD MD bs3
--- NOTE | 2022-09-29 20:01 | EDPHYS ---
Physician Documentation [facility] Name: Guzman Mayers Age: 77 yrs Sex: Male : 1945 Arrival Date: 09/29/2022 Time: 18:14 Bed 3 Private MD: Tong [facility] ED Physician Mohinder Valenzuela HPI: 09/29 18:43 This 77 yrs old Male presents to ER via Wheelchair with complaints of blood bs3 transfusion. 18:43 History of CKD, COPD, diabetes, ESRD Wednesday presents for weakness that bs3 been progressive since his last transfusion he had blood work prior to dialysis and his hemoglobin was 5.8 and they were called today and referred in denies black tarry stools denies bright red blood per rectum seen by GI previously with a negative colonoscopy and endoscopy patient denies chest pain or shortness of breath denies ever seeing hematology. He does have a reported codeine allergy where he had some hallucinations but this was many years ago he endorses on review of systems chronic back pain after a fall in our hospital in April for which she was eventually diagnosed with an acute fracture denies numbness tingling or weakness in his extremities. Historical: - Allergies: 18:28 Codeine; vg1 18:28 GABAPENTIN; vg1 - PMHx: 18:28 ADD/ADHD; CHF; CKD; COPD; Diabetes - IDDM; Dialysis; MWF; dialysis tues, thurs, sat, vg1 uses o2 when sleeping.; High Cholesterol; HTN; Hypertension; - Immunization history:: Adult Immunizations up to date. ROS: 18:43 Constitutional: Negative for fever, chills bs3 18:43 All other systems are negative. Exam: 18:43 Constitutional: This is a well developed, well nourished patient who is awake, alert, bs3 and in no acute distress. Head/Face: Normocephalic, atraumatic. Eyes: Pupils equal round and reactive to light, extra-ocular motions intact. Lids and lashes normal. Neck: Trachea midline, no thyromegaly, no neck stiffness Chest/axilla: Normal chest wall appearance and motion. Nontender with no deformity. No lesions are appreciated. Cardiovascular: Regular rate and rhythm with a normal S1 and S2. symmetric pulses in upper extremities Respiratory: Lungs have equal breath sounds bilaterally, clear to auscultation, no respiratory distress Abdomen/GI: Soft, non-tender, no rebound or guarding MS/ Extremity: Pulses equal, no cyanosis. Neurovascular intact. Full, normal range of motion. Neuro: Awake and alert, GCS 15, oriented to person, place, time, and situation. Cranial nerves II-XII grossly intact. Motor strength 5/5 in all extremities. Sensory grossly intact. Psych: Awake, alert, with orientation to person, place and time. Behavior, mood, and affect are within normal limits. 19:47 afib 63 rbbb lafb qtc 495 as inter by myself. bs3 Vital Signs: 18:26 BP 111 / 79; Pulse 76; Resp 18; Temp 98.2; Pulse Ox 97% on R/A; Weight 73.03 kg; Height vg1 5 ft. 10 in. ; 21:03 BP 106 / 47; Pulse 56; Resp 16; Pulse Ox 100% on 2 lpm NC; jb4 18:26 Body Mass Index 23.10 (73.03 kg, 177.8 cm) vg1 MDM: 18:19 Patient medically screened. bs3 18:43 Data reviewed: vital signs, nurses notes. ED course: Patient with acute on chronic bs3 anemia if anemic will transfuse given ESRD he is always needing admission for this as he needs dialysis after in between units we will plan to admit for acute anemia recommended outpatient work-up also patient is endorsing poor quality of life secondary to his fall fracture he was told not to take Advil and only Tylenol which is not helping we will trial hydromorphone we had a discussion regarding the risks and benefits with him and his family and they agreed to a trial. 19:58 ED course: Given need for blood with dialysis, will admit for transfusion.. bs3 05 18:37 Order name: CBC with Diff bs3 09/29 18:37 Order name: Comprehensive Metabolic Panel bs3 / 18:37 Order name: Type And Screen bs3 09/29 20:41 Order name: Packed RBC Leukored EDSC 09/29 18:37 Order name: EKG - Nurse/Tech; Complete Time: 19:49 bs3 Administered Medications: 20:10 Drug: HYDROmorphone PO 1 mg Route: PO; jb4 Disposition Summary: 09/29/22 20:01 Hospitalization Ordered Hospitalization Status: Observation bs3 Provider: Wendi Ruiz bs3 Location: Telemetry/MedSurg (observation) bs3 Condition: Stable bs3 Problem: new bs3 Symptoms: have worsened bs3 Bed/Room Type: Standard bs3 Room Assignment: 229(09/29/22 20:59) cg Diagnosis - Anemia, unspecified bs3 Forms: - Medication Reconciliation Form bs3 - SBAR form bs3 Signatures: Dispatcher [employer] Janice Tao RN RN cg Jonny Alonso RN RN jb4 Zully Wall RN RN vg1 Mohinder Valenzuela MD MD bs3 Corrections: (The following items were deleted from the chart) 20:59 20:01 bs3 cg
[2022-09-29 20:06] LABS: Absolute Lymphocytes (CBC) 0.9 K/uL (0.7-4.9); Hematocrit 16.8 % (39.6-49.0); Lymphocytes % 27.1 % (15.3-44.8); MCV 85.1 fL (80-100); RBC Red Blood Cell Count 1.98 M/uL (4.33-5.43)
[2022-09-29] MEDS ORDERED: HYDROMORPHONE ORAL 2 MG TAB ONE (20:11)
[2022-09-29 20:17] LABS: Albumin 3.1 g/dL (3.4-5.0); Bilirubin Total 0.5 mg/dL (0.2-1.0); Potassium 4.9 mEq/L (3.5-5.1); Protein, Total 7.2 g/dL (6.4-8.2)
--- NOTE | 2022-09-29 20:30 | P.HP ---
Certification for Inpatient Patient admitted to: Observation With expected LOS: <2 Midnights Patient will require the following post-hospital care: None Practitioner: I am a practitioner with admitting privileges, knowledge of patient current condition, hospital course, and medical plan of care. Services: Services provided to patient in accordance with Admission requirements found in Title 42 Section 412.3 of the Code of Federal Regulations Patient History Date of Service: 09/29/22 Primary Care Provider: Tong Reason for admission: Anemia in ESRD History of Present Illness: Mr. Mayers is a 77-year-old male with past medical history of ESRD on HD MWF, COPD on home O2, chronic diastolic CHF, anemia of chronic disease, hypertension, hyperlipidemia, A-fib, and insulin-dependent type 2 diabetes who presented to the emergency department with anemia. He had blood work done yesterday which revealed a hemoglobin of 5.8 and was sent to the ED to be admitted for blood transfusion. Today his hemoglobin is 5.9. I spoke with paddle dyeing machine operator who recommended 1 unit to be transfused now and 2 to be transfused with dialysis in the morning. Patient is asymptomatic. Vital signs have been stable. Will admit for further evaluation and management of anemia. Allergies codeine Allergy (Verified 09/29/22 22:59) Hallucinations gabapentin Adverse Reaction (Verified 09/29/22 22:59) Hallucinations Home medications list reviewed: Yes Home Medications: Insulin Glargine,Hum.rec.anlog [Basaglar Kwikpen U-100] 52 unit SQ DAILY 10/16/21 Epoetin [Retacrit] 10,000 unit IV EVERY HD vial 07/30/22 Atorvastatin Calcium 40 mg PO BEDTIME 09/10/22 Carvedilol [Coreg] 12.5 mg PO BID 09/10/22 Citalopram Hydrobromide [Citalopram HBr] 20 mg PO DAILY 09/10/22 Pantoprazole [Protonix Tab*] 40 mg PO DAILY 09/10/22 - Past Medical/Surgical History Diabetic: Yes -: Hypertension -: Hyperlipidemia -: Diabetes type 2, insulin dependent -: End-stage renal disease, hemodialysis-Wednesday, Wednesday, Wednesday -: Diastolic CHF -: COPDon home O2 -: Anemia of chronic disease -: 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 He has 3 children - Family History mother and father History Unknown: Yes Notes: adopted - Social History Smoking Status: Never smoker Alcohol use: No CD- Drugs: No Caffeine use: No Place of Residence: Home Review of Systems Unremarkable Physical Examination - Vital Signs Temperature: 98.2 F Blood Pressure: 111/79 Pulse: 76 Respirations: 18 Pulse Ox (%): 97 - Physical Exam General: Alert, In no apparent distress HEENT: Atraumatic, EOMI, Sclerae nonicteric Neck: Supple, 2+ carotid pulse no bruit Respiratory: Clear to auscultation bilaterally, Normal air movement Cardiovascular: Regular rate/rhythm, Normal S1 S2 Gastrointestinal: Normal bowel sounds, No tenderness Musculoskeletal: No tenderness Integumentary: No rashes Neurological: Normal speech, Normal affect - Studies Laboratory Data (last 24 hrs) 09/29/22 19:45: Sodium 132 L, Potassium 4.9, BUN 34 H, Creatinine 3.75 H, Glucose 113 H, Total Bilirubin 0.5, AST 17, ALT 23, Alkaline Phosphatase 303 H 09/29/22 19:45: WBC 3.20 L, Hgb 5.9 L*, Hct 16.8 L, Plt Count 269 Assessment and Plan - Problems (Diagnosis) (1) Anemia in ESRD (end-stage renal disease) Current Visit: Yes Status: Acute (2) Atrial fibrillation Current Visit: Yes Status: Chronic Qualifiers: Atrial fibrillation type: paroxysmal Qualified Code(s): I48.0 - Paroxysmal atrial fibrillation (3) CHF (congestive heart failure) Current Visit: Yes Status: Chronic Qualifiers: Heart failure type: unspecified Heart failure chronicity: chronic Qualified Code(s): I50.9 - Heart failure, unspecified (4) COPD (chronic obstructive pulmonary disease) Current Visit: Yes Status: Chronic Qualifiers: COPD type: unspecified COPD Qualified Code(s): J44.9 - Chronic obstructive pulmonary disease, unspecified (5) ESRD (end stage renal disease) on dialysis Current Visit: Yes Status: Chronic (6) Hypertension Current Visit: Yes Status: Chronic Qualifiers: Hypertension type: primary hypertension Qualified Code(s): I10 - Essential (primary) hypertension (7) Type 2 diabetes mellitus Current Visit: Yes Status: Chronic Qualifiers: Diabetes mellitus mcfp insulin use: with assistant terminal manager use Diabetes mellitus complication status: with hyperglycemia Qualified Code(s): E11.65 - Type 2 diabetes mellitus with hyperglycemia; Z79.4 - equipment operator intermodal yard (current) use of insulin - Plan Severe anemia/acute on chronic anemia of chronic disease Hemoglobin is 5.9 today. 1 unit PRBC transfusing now. 2 units PRBC to be transfused with HD in the morning. Recent EGD in which no source of bleeding was found. Patient denies any melena, hematochezia, hematemesis. ESRD on HD MWF Nephrology consult in place, to have HD tomorrow. Insulin Dependent Type 2 Diabetes ACHS accu checks with mild sliding scale and diabetic diet Continue home dose long acting once verified Chronic respiratory failure with underlying chronic diastolic congestive heart failure/COPD on home O22.5 L Continue home O2, no acute exacerbation noted. Chronic A-fib Noted, patient taking daily aspirin but no chronic anticoagulation given his severe anemia. Hypertension Hold oral antihypertensives given anemia. BP borderline low. Hyperlipidemia Continue home meds Discharge Plan: Home Plan to discharge in: 24 Hours - Advance Directives Does patient have a Living Will: No Does patient have a Durable POA for Healthcare: No - Code Status/Comfort Care Code Status Assessed: Yes Code Status: Full Code Physician Review: Patient Assessed, Agree with Above Assessment and Plan Critical Care: No Time Spent Managing Pts Care (In Minutes): 50
[2022-09-29] MEDS: INSULIN -REGULAR HUMAN 50 UNIT/0.5 ML ML SQ SCH (21:29)
[2022-09-29] MEDS ORDERED: NA CHLORIDE 0.9% 250 ML ONE (22:19)
[2022-09-30] MEDS: ACETAMINOPHEN 500 MG TAB PO PRN ×2 (05:53→17:28)
[2022-09-30] MEDS: INSULIN -REGULAR HUMAN 50 UNIT/0.5 ML ML SQ SCH ×4 (07:30→22:45)
[2022-09-30 07:46] LABS: Hematocrit 18.7 % (39.6-49.0)
[2022-09-30] MEDS ORDERED: DESMOPRESSIN 20 MCG in NA CHLORIDE 0.9% 50 ML IV ONE (11:00)
[2022-09-30] MEDS: PANTOPRAZOLE 40MG TABLET PO SCH (11:23)
[2022-09-30] MEDS: SEVELAMER CARBONATE 800 MG TABLET PO SCH ×2 (11:24→16:19)
--- NOTE | 2022-09-30 11:28 | CON ---
Date of Consultation: 09/30/2022 Reason For Consultation: Elevated BUN and creatinine, over volume, end-stage renal disease. History Of Present Illness: This is a pleasant 77-year-old gentleman, well known to me from dialysis with significant past medical history of end-stage renal disease, on hemodialysis, Wednesday, Wednesday, Wednesday through left arm AV fistula, CAD complicated with congestive heart failure, diabetes complicated with neuropathy and nephropathy, recurrent admission with anemia full workup including EGD and colonoscopy did not conclude any active bleed, hypertension, hyperlipidemia, the patient was in his regular state of health. Lab done as an outpatient, hemoglobin came 5.8. For that reason, advised the patient to direct to the ER. Upon arrival to the ER, hemoglobin 5.9. We directed the ER to give 1 unit of transfusion and to give another 2 unit with dialysis. The patient complaining from shortness of breath. No chest pain. No melena. No hematochezia. No hematuria. Past Medical History: Includes; 1. Hypertension. 2. Hyperlipidemia. 3. CAD complicated with congestive heart failure. 4. Diabetes complicated with neuropathy, nephropathy. 5. End-stage renal disease, on hemodialysis Wednesday, Wednesday, Wednesday at [facility]. 6. Anemia, recurrent admission for transfusion. Workup by GI, EGD and colonoscopy were negative. Planned for capsule endoscopy. Past Surgical History: Includes EGD, colonoscopy, AV fistula, and angiogram. Social History: Denied smoking, denied drinking, denied drugs abuse. Review of Systems: Head and Neck: No red eye. No ear pain. GI: No nausea. No vomiting. : No polyuria. No dysuria. No hematuria. Stand Up Comedian: No vaginal discharge. Respiratory: Has shortness of breath. Cardiovascular: Has orthopnea. Endocrine: No polydipsia. Skin: No rash. Neuro: Has neuropathy. Musculoskeletal: Generalized fatigue. Physical Examination: Vital Signs: When I saw the patient; blood pressure of 161/62, pulse of 62, afebrile. Chest: Crackles bilateral. Heart: S1, S2. Systolic murmur. Abdomen: Soft, nontender. Extremity: Trace edema. AV fistula in the left upper extremity with good thrill and bruit. Neurological: Alert, oriented x3. No focal. Laboratory Data: Yesterday hemoglobin 5.9, today 6.4, 1 unit was transfused. Sodium 132, potassium 4.9, bicarb 31, BUN 34, creatinine 3.7, calcium 9.8. Current Medications: The patient on in the hospital include Tylenol, Epogen, insulin. Home Medications: Include bisacodyl, Epogen, insulin, atorvastatin, carvedilol, pantoprazole. Assessment And Plan: 1. End-stage renal disease, over volume. I am going to go ahead and arrange for dialysis today. We will challenge the patient for fluid removal and we will arrange for 2 units of blood transfusion. 2. Possible GI bleed with symptomatic anemia, status post 1 unit of transfusion. We will arrange for 2 units with dialysis today. We will give DDAVP. Full workup of GI was done before. We will follow up with primary. The patient's hemoglobin is stable. Cleared from the Renal standpoint for discharge planning after dialysis. 3. Hyponatremia, dilutional. Will be corrected with dialysis. 4. Over volume. The patient is going to be challenged. 5. Secondary hyperparathyroidism. I am going to continue the patient on the binder. 6. Anemia of chronic kidney disease/GI bleed. Resume PPI and we will follow up the patient. 7. Diabetes as by primary. 8. Congestive heart failure with over volume. We will challenge the patient. Time spent examining the patient [id number], reviewing data, lab and radiology, placing order, discussing the case with the patient and cleaning team member including hospitalist and nurses more than 75 minutes. VISHAL Voice ID: [id number] Report ID: [id number] MANJINDER
--- NOTE | 2022-09-30 14:07 | EKG ---
Test Date: 2022-09-29 Test Time: 19:41:38 Car Repairer Pullman: SYLVIE MEASUREMENT RESULTS: Intervals: Rate: 63 ND: QRSD: 182 QT: 484 QTc: 495 Hunter: P: ND: QRS: -86 T: -21 INTERPRETIVE STATEMENTS: Atrial fibrillation with a competing junctional pacemaker Right bundle branch block Left anterior fascicular block Bifascicular block Septal infarct, age undetermined Abnormal ECG Compared to ECG 08/20/2022 16:25:40 Left anterior fascicular block now present Bifascicular block now present Myocardial infarct finding now present Electronically Signed On 09-30-22 14:06:06 CDT by Chico Henriquez
[2022-09-30] MEDS ORDERED: NA CHLORIDE 0.9% 250 ML ONE ×2 (19:25→20:20)
[2022-09-30] MEDS ORDERED: DESMOPRESSIN 4 MCG/ML AMP IV ONE (21:00)
[2022-09-30] MEDS: EPOETIN ALFA 10,000 UNIT/ML VIAL IV SCH (21:15)
[2022-09-30 23:16] LABS: Hematocrit 24.9 % (39.6-49.0)
[2022-10-01 05:27] VITALS: BMI 23.1
[2022-10-01] MEDS: PANTOPRAZOLE 40MG TABLET PO SCH (05:35)
[2022-10-01 06:44] LABS: Absolute Lymphocytes (CBC) 0.8 K/uL (0.7-4.9); Hematocrit 24.4 % (39.6-49.0); Lymphocytes % 26.1 % (15.3-44.8); MCV 86.6 fL (80-100); MPV 7.3 fL (7.6-11.3); RBC Red Blood Cell Count 2.82 M/uL (4.33-5.43)
[2022-10-01 07:24] LABS: Blood Morphology Comment NOT SEEN (NOT SEEN); Platelet Estimate ADEQ
[2022-10-01] MEDS: INSULIN -REGULAR HUMAN 50 UNIT/0.5 ML ML SQ SCH ×4 (07:30→20:36)
[2022-10-01 07:38] LABS: Albumin 2.9 g/dL (3.4-5.0); Bilirubin Total 0.7 mg/dL (0.2-1.0); Magnesium 1.9 mg/dL (1.6-2.4); Potassium 4.1 mEq/L (3.5-5.1); Protein, Total 6.8 g/dL (6.4-8.2)
[2022-10-01] MEDS: SEVELAMER CARBONATE 800 MG TABLET PO SCH ×3 (08:17→16:16)
--- NOTE | 2022-10-01 13:07 | PN ---
Date of Progress Note: 10/01/2022 Subjective: The patient was admitted with symptomatic anemia, over volume. The patient received 3 units of blood transfusion total. Had dialysis yesterday. We managed to remove 2.5 L. Physical Examination: Vital Signs: Blood pressure 140/65, pulse of 93, afebrile. Chest: Faint rales bilateral. Heart: S1, S2. Systolic murmur. Abdomen: Soft, nontender. No organomegaly. Extremities: No edema. Neurologic: Alert. No focality. Laboratory Data: Hemoglobin 8.2. Sodium 134, potassium 4.1, bicarb 31, BUN 26, creatinine 3.2, calcium 8.6, magnesium 1.9. Current Medications: The patient on include; 1. Heparin. 2. Epogen. 3. Renvela. 4. Pantoprazole. Assessment And Plan: 1. End-stage renal disease, over volume, status post dialysis yesterday, currently normal volume. I am going to arrange for another dialysis tomorrow. 2. Hypertension, controlled, optimal. We will continue to utilize blood pressure for more ultrafiltration. 3. Over volume. Continue to challenge the patient with the dialysis. 4. Anemia, possible GI loss, status post full workup negative, status post transfusion yesterday, status post DDAVP. We will continue to monitor the patient. Follow up with GI. Continue PPI. 5. Secondary hyperparathyroidism. Continue Renvela. We will follow up phosphorus. Time spent examining the patient [id number], reviewing data, lab and radiology, placing order, discussing the case with the patient and cafe team member including hospitalist and nurses more than 35 minutes. VISHAL Voice ID: [id number] Report ID: [id number] MTDD
[2022-10-02 03:45] LABS: Albumin 3.1 g/dL (3.4-5.0); Phosphorus 3.1 mg/dL (2.5-4.9); Potassium 4.5 mEq/L (3.5-5.1)
[2022-10-02] MEDS: PANTOPRAZOLE 40MG TABLET PO SCH (05:34)
[2022-10-02] MEDS: INSULIN -REGULAR HUMAN 50 UNIT/0.5 ML ML SQ SCH ×3 (07:30→16:10)
[2022-10-02] MEDS: SEVELAMER CARBONATE 800 MG TABLET PO SCH ×2 (07:56→12:00)
--- NOTE | 2022-10-02 08:32 | P.PN ---
Date of Service: 09/30/22 Subjective Patient is doing well clinically. Patient denies any new complaints. Discharge home today. Physical Examination - Vital Signs Reviewed - Physical Exam General: Alert, In no apparent distress Respiratory: Clear to auscultation bilaterally, Normal air movement Cardiovascular: Regular rate/rhythm, Normal S1 S2 Gastrointestinal: Normal bowel sounds, No tenderness Neurological: No focal deficits Assessment and Plan - Problems (Diagnosis) (1) Anemia in ESRD (end-stage renal disease) Current Visit: Yes Status: Acute (2) Atrial fibrillation Current Visit: Yes Status: Chronic Qualifiers: Atrial fibrillation type: paroxysmal Qualified Code(s): I48.0 - Paroxysmal atrial fibrillation (3) CHF (congestive heart failure) Current Visit: Yes Status: Chronic Qualifiers: Heart failure type: unspecified Heart failure chronicity: chronic Qualified Code(s): I50.9 - Heart failure, unspecified (4) COPD (chronic obstructive pulmonary disease) Current Visit: Yes Status: Chronic Qualifiers: COPD type: unspecified COPD Qualified Code(s): J44.9 - Chronic obstructive pulmonary disease, unspecified (5) ESRD (end stage renal disease) on dialysis Current Visit: Yes Status: Chronic (6) Hypertension Current Visit: Yes Status: Chronic Qualifiers: Hypertension type: primary hypertension Qualified Code(s): I10 - Essential (primary) hypertension (7) Type 2 diabetes mellitus Current Visit: Yes Status: Chronic Qualifiers: Diabetes mellitus chcf insulin use: with chcf use Diabetes mellitus complication status: with hyperglycemia Qualified Code(s): E11.65 - Type 2 diabetes mellitus with hyperglycemia; Z79.4 - [facility] (current) use of insulin - Plan 1. We will get blood transfusion today during hemodialysis 2. Continue monitoring H&H 3. Patient will need outpatient work-up with hematology 4. Strict blood pressure and blood sugar control 5. GI DVT prophylaxis
--- NOTE | 2022-10-02 08:34 | P.PN ---
Date of Service: 10/01/22 Subjective Patient got 2 units of packed red blood cells during hemodialysis late in the evening. Hemoglobin this morning is stable. We will continue to monitor and anticipate discharge home after hemodialysis tomorrow. Physical Examination - Vital Signs Reviewed - Physical Exam General: Alert, In no apparent distress Respiratory: Clear to auscultation bilaterally, Normal air movement Cardiovascular: Regular rate/rhythm, Normal S1 S2 Gastrointestinal: Normal bowel sounds, No tenderness Neurological: No focal deficits Assessment and Plan - Problems (Diagnosis) (1) Anemia in ESRD (end-stage renal disease) Current Visit: Yes Status: Acute (2) Atrial fibrillation Current Visit: Yes Status: Chronic Qualifiers: Atrial fibrillation type: paroxysmal Qualified Code(s): I48.0 - Paroxysmal atrial fibrillation (3) CHF (congestive heart failure) Current Visit: Yes Status: Chronic Qualifiers: Heart failure type: unspecified Heart failure chronicity: chronic Qualified Code(s): I50.9 - Heart failure, unspecified (4) COPD (chronic obstructive pulmonary disease) Current Visit: Yes Status: Chronic Qualifiers: COPD type: unspecified COPD Qualified Code(s): J44.9 - Chronic obstructive pulmonary disease, unspecified (5) ESRD (end stage renal disease) on dialysis Current Visit: Yes Status: Chronic (6) Hypertension Current Visit: Yes Status: Chronic Qualifiers: Hypertension type: primary hypertension Qualified Code(s): I10 - Essential (primary) hypertension (7) Type 2 diabetes mellitus Current Visit: Yes Status: Chronic Qualifiers: Diabetes mellitus retirement insulin use: with intermodal customer service use Diabetes mellitus complication status: with hyperglycemia Qualified Code(s): E11.65 - Type 2 diabetes mellitus with hyperglycemia; Z79.4 - intermediate card tender (current) use of insulin - Plan 1. Status post 2 units packed red blood cells during hemodialysis. Hemoglobin today is 8.2. 2. Repeat H&H in plan to discharge after hemodialysis in the morning 3. Patient will need outpatient work-up with hematology 4. Strict blood pressure and blood sugar control 5. GI DVT prophylaxis
--- NOTE | 2022-10-02 08:35 | P.DS ---
Discharge Date: 10/02/22 Primary Care Provider: Tong Disposition: ROUTINE DISCHARGE Discharge Condition: GOOD Reason for Admission: Anemia in ESRD Consultations: Nephrology Brief History of Present Illness: Mr. Mayers is a 77-year-old male with past medical history of ESRD on HD MWF, COPD on home O2, chronic diastolic CHF, anemia of chronic disease, hypertension, hyperlipidemia, A-fib, and insulin-dependent type 2 diabetes who presented to the emergency department with anemia. He had blood work done yesterday which revealed a hemoglobin of 5.8 and was sent to the ED to be admitted for blood transfusion. Today his hemoglobin is 5.9. I spoke with tumbler dyeing machine operator who recommended 1 unit to be transfused now and 2 to be transfused with dialysis in the morning. Patient is asymptomatic. Vital signs have been stable. Will admit for further evaluation and management of anemia. Hospital Course: Patient has done well during hospital stay. Patient was given 2 units of packed red blood cells and patient's hemoglobin is stable. Patient will go home after hemodialysis today. At this time patient is stable and we will continue to monitor as an outpatient. Vital Signs/Physical Exam: Temp Pulse Resp BP Pulse Ox 97.5 F 75 18 143/69 H 98 10/02/22 04:00 10/02/22 04:00 10/02/22 04:00 10/02/22 04:00 10/02/22 04:00 General: Alert, In no apparent distress, Oriented x3 Laboratory Data at Discharge: WBC 3.10 thou/uL (4.3-10.9) L 10/01/22 06:19 Hgb 8.2 g/dL (13.6-17.9) L 10/01/22 06:19 Hct 24.4 % (39.6-49.0) L 10/01/22 06:19 Plt Count 221 thou/uL (152-406) 10/01/22 06:19 Sodium 132 mEq/L (136-145) L 10/02/22 02:24 Potassium 4.5 mEq/L (3.5-5.1) 10/02/22 02:24 BUN 40 mg/dL (7-18) H 10/02/22 02:24 Creatinine 4.29 mg/dL (0.70-1.30) H 10/02/22 02:24 Glucose 83 mg/dL (74-106) 10/02/22 02:24 Phosphorus 3.1 mg/dL (2.5-4.9) 10/02/22 02:24 Magnesium 1.9 mg/dL (1.6-2.4) 10/01/22 06:19 Total Bilirubin 0.7 mg/dL (0.2-1.0) 10/01/22 06:19 AST 17 U/L (15-37) 10/01/22 06:19 ALT 20 U/L (16-61) 10/01/22 06:19 Alkaline Phosphatase 283 U/L (45-117) H 10/01/22 06:19 Home Medications: Insulin Glargine,Hum.rec.anlog [Basaglar Kwikpen U-100] 52 unit SQ DAILY 10/16/21 Epoetin [Retacrit] 10,000 unit IV EVERY HD vial 07/30/22 Atorvastatin Calcium 40 mg PO BEDTIME 09/10/22 Carvedilol [Coreg] 12.5 mg PO BID 09/10/22 Citalopram Hydrobromide [Citalopram HBr] 20 mg PO DAILY 09/10/22 Pantoprazole [Protonix Tab*] 40 mg PO DAILY 09/10/22 bisacodyL [Gentle Laxative] 5 mg PO DAILY 09/29/22 Physician Discharge Instructions: -DC IV and DC home after HD -Follow-up with PCP in 1 to 2 weeks -Follow-up with Nephrology for HD and in 1 to 2 weeks for appointment -Follow-up with Hematology in 1-2 weeks for anemia work-up -Please call Dr. Ruiz at [phone] if any questions regarding hospital stay -Please call nursing station at [phone] if any nursing or medication questions -Return to the emergency room if symptoms worsen Diet: Renal Activity: Fall precautions Followup: Naveed Fortune, [Primary Care Provider] - Time spent managing pt's care (in minutes): 20
[2022-10-02 08:49] VITALS: BP 161/79; TEMP 98.2
[2022-10-02] MEDS: EPOETIN ALFA 10,000 UNIT/ML VIAL IV SCH (13:15)
[2022-10-02 15:19] VITALS: O2SAT 99
--- NOTE | 2022-10-02 16:27 | P.PN ---
Subjective Date of Service: 10/02/22 Primary Care Provider: Tong Chief Complaint: Anemia in ESRD Subjective: No new changes, Other (received HD today.) Physical Examination - Vital Signs Temperature: 98.2 F Blood Pressure: 161/79 Pulse: 112 Respirations: 18 Pulse Ox (%): 96 - Physical Exam General: Other (chronically ill-appearing) HEENT: Atraumatic, Normocephalic Neck: Supple, JVD not distended Respiratory: Other (symmetric chest expansion) Cardiovascular: No rubs, No murmurs Gastrointestinal: Soft and benign, No guarding Musculoskeletal: No clubbing Integumentary: No warmth Neurological: Normal tone Urinary: Other (no bladder distention) External genitalia: Deferred Rectal: Deferred Assessment And Plan - Plan 1. End-stage renal disease. HD received today 2. Volume overload. HD as above 3. Hypertension. continue current BP medication regimen. 4. Anemia, possible GI loss, status post full workup negative, status post tra nsfusion yesterday, status post DDAVP. We will continue to monitor the patient. Follow up with GI. Continue PPI. 5. Secondary hyperparathyroidism. Continue Renvela. We will follow up phosphorus Physician Review: Patient Assessed, Agree with Above Assessment and Plan
== END 2022-10-02 16:31 | disposition home health service (06) | DRG 291 ==
LOC: ER 18:14 → ERHOLD 20:19 → 2ND 21:34 → OBSVTOIN 10-01 15:46
PROVIDERS: ADMIT Hospitalist; ATTEND Hospitalist
PROC: 30233N1 Transfusion of Nonautologous Red Blood Cells into Peripheral Vein, Percutaneous Approach (ICD-10-PCS; principal; 2022-09-30)
PROC: 5A1D70Z Performance of Urinary Filtration, Intermittent, Less than 6 Hours Per Day (ICD-10-PCS; 2022-10-02)
DX: I13.2 Hypertensive heart and chronic kidney disease with heart failure and with stage 5 chronic kidney disease, or end stage renal disease (principal); N18.6 End stage renal disease; J96.10 Chronic respiratory failure, unspecified whether with hypoxia or hypercapnia; I48.19 Other persistent atrial fibrillation; E87.1 Hypo-osmolality and hyponatremia; N25.81 Secondary hyperparathyroidism of renal origin; D63.1 Anemia in chronic kidney disease; I50.32 Chronic diastolic (congestive) heart failure; E11.22 Type 2 diabetes mellitus with diabetic chronic kidney disease; E11.65 Type 2 diabetes mellitus with hyperglycemia; E11.40 Type 2 diabetes mellitus with diabetic neuropathy, unspecified; E11.21 Type 2 diabetes mellitus with diabetic nephropathy; I25.10 Atherosclerotic heart disease of native coronary artery without angina pectoris; J44.9 Chronic obstructive pulmonary disease, unspecified; E78.5 Hyperlipidemia, unspecified; Z99.2 Dependence on renal dialysis; Z99.81 Dependence on supplemental oxygen; Z79.4 Long term (current) use of insulin; Z79.82 Long term (current) use of aspirin; Z79.899 Other long term (current) drug therapy; Z88.5 Allergy status to narcotic agent; Z88.8 Allergy status to other drugs, medicaments and biological substances
CPT/HCPCS: 36415; 36430; 80053; 80069; 82607; 82947; 83540; 83735; 85014; 85018; 85025; 85044; 86850; 86900; 86901; 86920; 90935; 93005; 99285; G0378; J1644; J1815; J2597; J7050; P9016

== ENCOUNTER 2022-10-31 13:00 | Emergency (ER) | payer OTHER, BC ==
--- OUTSIDE RECORDS SUMMARY | 2022-10-31 13:18 | XMS REPORT | Continuity of Care Document ---
:1945 Author Organization [facility] t Address [address] [facility] [address] [place] [address] Care Team Providers Name Role Phone Naveed Fortune Primary Care Physician Tong Naveed M Attending Clinician Unavailable [id number] Attending Clinician Unavailable RONNIE AYALA Attending Clinician Unavailable Ronnie Mendoza Attending Clinician Susan RIGGINS, Ubaldo A Attending Clinician Unavailable MARIANNA BARBOUR Attending Clinician Unavailable Fabian Fernandes MD Attending Clinician Mine Mosqueda DO Attending Clinician Marianna Barbour MD Attending Clinician CAREY LONG Attending Clinician Unavailable Carey Long Attending Clinician ZACHARY BRUNO Attending Clinician Unavailable Zachary Bruno Attending Clinician Monse Velazquez Attending Clinician Pepper Crawford Attending Clinician PEPPER CRAWFORD Attending Clinician Unavailable MONSE VELAZQUEZ Attending Clinician Unavailable CHILANGO ARMSTRONG NATASHA Attending Clinician Unavailable [id number] Admitting Clinician Unavailable MINE MOSQUEDA Admitting Clinician Unavailable Mine Mosqueda DO Admitting Clinician ZACHARY BRUNO Admitting Clinician Unavailable Zachary Bruno Admitting Clinician Monse Velazquez Admitting Clinician MONSE VELAZQUEZ Admitting Clinician Unavailable CHILANGO ARMSTRONG NATASHA Admitting Clinician Unavailable Payers Payer Name Policy Type Policy Effective Date Expiration Date Sour ce Number MEDICARE PART A [id number] 2011 AND B 00:00:00 MEDICARE PART A [id number] 2010 \\T\\ B 00:00:00 BCBS TRADITIONAL [id number] 2014 00:00:00 [employer] Blue 6 [id number] 2014 [facility] 00:00:00 - [facility] [id number] BCTX BCTI [id number] MEDICARE NOVITAS [id number] 2011 [facility] 00:00:00 - [facility] MEDICARE NOVITAS [id number] 2011 [facility] 00:00:00 - [facility] MEDICARE NOVITAS [id number] 2011 [facility] 00:00:00 - [facility] Problems Condition Condition Condition Status Onset Resolution Last Treating Co mments Source Name Details Category Date Date Treatment Clinician Date E46 E46 Disease Active Univers Unspecifie Unspecifie 5-16 it y of d severe d severe 00:00: [place] protein-ca protein-ca 00 Me dical ajay ajay Branch malnutriti malnutriti on on Elevated Elevated Disease Active Unive rs troponin I troponin I 5-14 it y of level level 00:00: [place] 00 Medical Branch Elevated Elevated Disease Active Unive rs brain brain 5-14 ity of natriureti natriureti [place] c peptide c peptide 00 Medi yahaira (BNP) (BNP) Branch level level ESRD (end ESRD (end Disease Active Uni vers stage stage 5-14 ity of renal renal 00:00: [place] disease) disease) 00 Medica l on on Branch dialysis dialysis Essential Essential Disease Active Uni vers hypertensi hypertensi 5-14 it y of on on 00:00: [place] [facility] Syncope Syncope Disease Active Univers 5-14 ity of 00:00: [place] [address] Medical Branch Anemia Anemia Disease Active Univers associated associated 5-14 it y of with with 00:00: [place] nutritiona nutritiona 00 Me dical l l Branch deficiency deficiency Dyslipidem Dyslipidem Disease Active U nivers ia ia 5-14 ity of 00:00: [place] [facility] Bifascicul Bifascicul Disease Active U nivers ar block ar block 5-14 ity of 00:00: [place] [facility] Atrial Atrial Disease Active Univers flutter flutter 5-14 ity of 00:00: [place] 00 [facility] Branch Encephalop Encephalop Disease Active U nivers athy athy 5-14 ity of 00:00: [place] [facility] Hypoglycem Hypoglycem Disease Active U nivers ia ia 5-13 ity of 00:00: [place] 00 Medical Branch LOW LOW Diagnosis Active 2022-01-02 Mem oria HEMOGLOBIN HEMOGLOBIN 01-02 12:51:00 l COUNT/ COUNT/ 00:00: [place] NEEDING NEEDING 00 DIALYZED DIALYZED Active 01/02/2022 Kimber Celeste PNA DUE TO PNA DUE Diagnosis Active 2022-08-31 Memoria COVID-19 TO 12-14 21:48:00 l VIRUS COVID-19 00:00: [place] VIRUS 00 Active 12/14/2021 Kimber Celeste DIFFICULTY DIFFICULT Diagnosis Active 2021-12-14 [place] BREATHING Y 12-14 17:56:00 l BREATHING 00:00: [place] Active 00 12/14/2021 Kimber Celeste ABNORNAL ABNORNAL Diagnosis Active 2021-12-16 [facility] LAB LAB Active 12-03 05:50:00 l 12/03/2021 08:00: Thomas moyer [facility] [place] ANEMIA, ANEMIA, Diagnosis Active 2021-12-16 Memoria COVID-19 COVID-19 11-24 05:50:00 l Active 00:00: [place] 11/24/2021 [facility] [place] LOW LOW Diagnosis Active 2021-11-24 Mem oria HEMOGOBLIN HEMOGOBLIN 11-24 23:20:00 l Active 00:00: [place] 11/24/2021 00 [facility] Cellulitis Cellulitis Disease Active U nivers of right of right 12-29 ity of leg leg 00:00: [address] [id number] Other Problem Common obesity Spirit due to - CHI excess [facility] [id number] Metabolic Problem Com mon syndrome Spirit - [facility] [id number] Body mass Problem Com mon index [facility] [BMI] - [facility] 30.0-30.9, [facility] [id number] Frailty Problem Commo n syndrome Spirit in - [facility] geriatric [facility] 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 - [facility] , single major St episode depressive [facility] Center prior episode 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 - [facility] Chronic Chronic Problem Common systolic systolic Spirit heart congestive - CHI failure heart failure [facility] [id number] 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 - [facility] [id number] GERD Problem Common without Spirit esophagiti - CHI s 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 Chronic Chronic Problem Common obstructiv obstructiv Sp jerome e lung e - CHI disease pulmonary St disease, [facility] unspecifie Medica l d COPD Center type [id number] Heart Problem Common failure, Spirit congestive - CHI , etiology unknown [facility] [id number] Constipati Problem Com mon on, Spirit unspecifie - CHI d constipati [facility] on [facility] [id number] Memory Problem Common impairment Spirit of gradual - CHI onset [facility] [id number] HTN, goal Problem Comm on below Spirit 130/80 - [facility] [id number] Anemia of Problem Com mon chronic Spirit disease - [facility] [id number] intermediate card tender Problem Com mon (current) Spirit use of - CHI insulin 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 [facility] Hypertensi Hypertensi Problem C ommon ve heart ve chronic Spir it AND kidney - CHI chronic disease St kidney with stage [facility] disease 5 chronic Medica l stage 5 kidney Center (disorder) disease or end stage renal disease Dependence Dependenc Problem Active 2022-01-04 Memoria on e on 23:08:30 l hemodialys hemodialys He rmann is due to is due to end stage end stage renal renal disease disease (finding) (finding) Active Problem 01/04/2022 RADHA Barksdale COVID-19 COVID-19 Diagnosis Active 2022-08-31 Memoria Active 21:48:00 l [facility] [place] Celeste ANEMIA, ANEMIA, Diagnosis Active 2021-12-16 Memoria UNSPECIFIE UNSPECIFIE 05:50:00 l D D Active [place] [facility] [place] History of Past Illness Condition Condition Condition Status Onset Resolution Last Treating Co mments Source Name Details Category Date Date Treatment Clinician Date Anemia, Anemia, Problem 2021-2021-12-06 2021-12-06 Memoria unspecifie unspecifie 12-04 21:45:40 21:45:40 l d d 06:34: [place] 12/04/2021 00 12/06/2021 [place] Allergies, Adverse Reactions, Alerts Allergy Allergy Status Severity Reaction(s) Onset Inactive Treating Comm ents Source Name Type Date Date Clinician Gabapent Propensi Active Unknown - Uni vers in ty to See comments 10-10 ity of adverse 00:00: [place] reaction 00 Medical s Branch Hydrocod Propensi Active Unknown - Uni vers one ty to See comments 10-10 ity of adverse 00:00: [place] reaction 00 Medical s Branch GABAPENT DRUG Active Unknown-Cmnt Un arnie IN INGREDI 10-10 ity of 00:00: [place] 00 Medical Branch HYDROCOD DRUG Active Unknown-Cmnt Un arnie ONE INGREDI 10-10 ity of 00:00: [place] 00 Medical Branch Codeine Propensi Active Hallucinatio U nivers ty to ns 12-29 ity of adverse 00:00: [place] reaction Medical s Branch CODEINE DRUG Active Med Hallucinates Uni vers INGREDI 12-29 ity of 00:00: [place] 00 Medical Branch codeine codeine Active Memoria l [place] gabapent gabapent Active Memori a in in l [place] gabapent gabapent Active Unknown Commo n in in [facility] codeine codeine Active Unknown [facility] Social History Social Habit Start Date Stop Date Quantity Comments Source History of tobacco Cigarette Smoker University of use [place] [facility] History SDOH University o f Alcohol Std Drinks [place] [facility] History SDOH University o f Alcohol Binge [place] Medic al Branch History SDOH Social Unive rsity of [facility] Med ical Together Branch History SDOH Social Unive rsity of [facility] Medical Branch History SDOH Social Unive rsity of [facility] Medical Membership Branch History SDOH Social Unive rsity of [facility] Medical Meetings Branch Alcohol intake 2022-10-31 2022-10-31 Ex-drinker [place] of 00:00:00 00:00:00 (finding) [place] [facility] History SDOH 2022-10-12 2022-10-12 0 University o f Physical Activity 00:00:00 00:00:00 [place] M edical DPW Branch History SDOH 2022-10-12 2022-10-12 0 University o f Physical Activity 00:00:00 00:00:00 [place] M edical MPS Branch History SDOH 2022-10-12 2022-10-12 5 University o f Financial 00:00:00 00:00:00 [place] [facility] History SDOH Food 2022-10-12 2022-10-12 1 Univers ity of Worry 00:00:00 00:00:00 [place] [facility] History SDOH Food 2022-10-12 2022-10-12 1 Univers ity of Scarcity 00:00:00 00:00:00 [place] [facility] History SDOH 2022-10-12 2022-10-12 2 University o f Transport Med 00:00:00 00:00:00 [place] Medic al Branch History SDOH 2022-10-12 2022-10-12 2 University o f Transport Non-Med 00:00:00 00:00:00 [place] M edical Branch History SDOH 2022-10-12 2022-10-12 2 University o f Housing Unable to 00:00:00 00:00:00 [facility] edical Pay Branch History SDNH 2022-10-12 2022-10-12 1 University o f Housing Places 00:00:00 00:00:00 [place] Medi yahaira Lived Branch History SDNH 2022-10-12 2022-10-12 2 University o f Housing Homeless 00:00:00 00:00:00 [place] Me dical Last Year Branch History SDNH 2022-10-12 2022-10-12 1 University o f Alcohol Frequency 00:00:00 00:00:00 [facility] edical Branch History SDNH Social 2022-10-12 2022-10-12 5 Unive rsity of Connections Phone 00:00:00 00:00:00 [facility] edical Branch History SDNH Social 2022-10-12 2022-10-12 3 Unive rsity of Connections Living 00:00:00 00:00:00 [facility] Branch Tobacco use and 2022-10-11 2022-10-11 Smokeless Universit y of exposure 00:00:00 00:00:00 tobacco non-user [facility] dical Branch Tobacco Comment 2022-10-11 2022-10-11 pt has not Universit y of 00:00:00 00:00:00 smoked sice age [place] Med ical 19 Branch Exposure to 2022-09-30 2022-10-10 Not sure University of SARS-CoV-2 (event) 00:00:00 13:56:00 [place] [facility] Sex [birth year] Universit y of 00:00:00 00:00:00 [facility] Smoking Status Start Date Stop Date Source Social History 2021-12-04 02:37:37 2021-12-04 02:37:37 [facility] Medications Ordered Filled Start Stop Current Ordering Indication Dosage Frequency Signature Comments Components Source Medication Medication Date Date Medication? Clinician (SIG) Name Name aspirin 81 Yes [id number] 81mg Take 1 Univers mg EC 5-19 tablet by ity of tablet 00:00: mouth in [place] 00 the Medical morning. Branch aspirin 81 Yes [id number] 81mg Take 1 Univers mg EC 5-19 tablet by ity of tablet 00:00: mouth in [place] 00 the Medical morning. Branch aspirin 81 Yes [id number] 81mg Take 1 Univers mg EC 5-19 tablet by ity of tablet 00:00: mouth in [place] 00 the Medical morning. Branch citalopram Yes 20mg Take 1 Unive rs 20 mg 5-18 tablet by ity of tablet 14:40: mouth in [place] [address] the Medical morning. Branch atorvastati Yes 40mg Take 40 mg Univers n (LIPITOR) 5-18 by mouth ity of 40 mg 14:40: at [facility] 23 bedtime. Medical Branch MULTIVITAMI Yes 1{tbl} Take 1 Tab Univers NS WITH 5-18 by mouth ity of EXTRA C 14:40: daily. [place] [address] Medical Branch citalopram Yes 20mg Take 1 Unive rs 20 mg 5-18 tablet by ity of tablet 14:40: mouth in [place] [address] the Medical morning. Branch atorvastati Yes 40mg Take 40 mg Univers n (LIPITOR) 5-18 by mouth ity of 40 mg 14:40: at [facility] 23 bedtime. Medical Branch MULTIVITAMI Yes 1{tbl} Take 1 Tab Univers NS WITH 5-18 by mouth ity of EXTRA C 14:40: daily. [place] [address] Medical Branch citalopram Yes 20mg Take 1 Unive rs 20 mg 5-18 tablet by ity of tablet 14:40: mouth in [place] [address] the Medical morning. Branch atorvastati Yes 40mg Take 40 mg Univers n (LIPITOR) 5-18 by mouth ity of 40 mg 14:40: at [place] tablet 23 bedtime. Medical Branch MULTIVITAMI Yes 1{tbl} Take 1 Tab Univers NS WITH 5-18 by mouth ity of EXTRA C 14:40: daily. [place] ORAL 23 Medical Branch pantoprazol 2022- No 40mg Take 1 Uni vers e 40 mg EC 5-18 05-18 tablet by ity of tablet 14:28: 00:00 mouth in [place] 51 :00 the Medical morning. Branch ondansetron Yes 4mg 4 mg, Slow Univers (ZOFRAN 5-18 IV Push, ity of (PF)) 13:18: Q6HPRN, [place] injection 4 04 Starting Medi yahaira mg on [place] Branch 10/15/22 at 0818, Until Discontinu ed, Routine, Nausea and Vomiting (N/V) carvediloL 2022- No 12.5mg Take 0.5 Univers 25 mg 5-18 05-18 tablets by ity of tablet 12:58: 00:00 mouth in [place] 33 :00 the Medical morning. Branch spironolact 2022- No 25mg Take 25 mg Univers one 5-18 05-18 by mouth ity of (SPIRONOLAC 12:58: 00:00 daily. [place] as TONE) 25 mg 33 :00 Medical tablet Branch INSULIN 2022- No 52U inject 52 Univ ers GLARGINE,HU 5-18 05-18 Units ity of M.REC.ANLOG 12:58: 00:00 under the [place] (LANTUS 33 :00 skin every Medica l SOLOSTAR morning. Branch [place]) carvediloL Yes [id number] 6.25mg Take 1 Univers 6.25 mg 5-18 tablet by ity of tablet 00:00: mouth in [place] 00 the Medical morning Branch and 1 tablet in the evening. Take with meals. pantoprazol Yes [id number] 40mg Take 1 Univers e 40 mg EC 5-18 tablet by ity of tablet 00:00: mouth in [place] 00 the Medical morning. Branch carvediloL Yes [id number] 6.25mg Take 1 Univers 6.25 mg 5-18 tablet by ity of tablet 00:00: mouth in [place] the Medical morning Branch and 1 tablet in the evening. Take with meals. pantoprazol Yes [id number] 40mg Take 1 Univers e 40 mg EC 5-18 tablet by ity of tablet 00:00: mouth in [place] the morning. Branch carvediloL Yes [id number] 6.25mg Take 1 Univers 6.25 mg 5-18 tablet by ity of tablet 00:00: mouth in [place] the morning Branch and 1 tablet in the evening. Take with meals. pantoprazol Yes [id number] 40mg Take 1 Univers e 40 mg EC 5-18 tablet by ity of tablet 00:00: mouth in [place] the morning. Branch amoxicillin 2022- Yes [id number] 500mg Take 1 Univers -pot 5-18 05-26 tablet by ity of clavulanate 00:00: 04:59 [place] 500 mg 00 :00 every 24 Medical (AUGMENTIN) (twenty-fo Br anch 500-125 mg ur) hours tablet for 7 days. amoxicillin 2022- Yes [id number] 500mg Take 1 Univers -pot 5-18 05-26 tablet by ity of clavulanate 00:00: 04:59 [place] 500 mg 00 :00 every 24 Medical (AUGMENTIN) (twenty-fo Br anch 500-125 mg ur) hours tablet for 7 days. FENTanyl PF 0 Yes 25ug 25 mcg, Uni vers (SUBLIMAZE 5-17 Slow IV ity of (PF)) 11:05: Push, [place] injection 22 Q6HPRN, Medical 25 mcg Starting Branch on Wed10/14/22 at 0605, Until Discontinu ed, Routine, Pain (scale 4-6) FENTanyl PF 2022- No 12.5ug 12.5 mcg, Univers (SUBLIMAZE 5-17 05-17 Slow IV ity o f (PF)) 08:07: 11:05 [place], [place] injection 00 :38 Q6HPRN, Medical 12.5 mcg Starting Branch on Wed10/14/22 at 0307, Until Wed10/14/22 at 0605, Routine, Pain (scale 4-6) ampicillin- 2022- Yes 3g 3 g, IV Un arnie sulbactam 10-13 Piggyback, ity of (UNASYN) 3 20:30: 20:29 Q24H ABX, [place] g in NaCl 00 :00 5 doses, Medica l 0.9% (NS) First dose Bran ch 100 mL on Wed MINI-BAG 10/13/22 at 1530, Last dose on 10/17/22 at 1530, Administer over 30 Minutes, 100 mL
Reas on for Anti-Infec tive: Documented Infection< br>Documen swathi Infection Site: Respirator y
Durat ion of Therapy: 7 days amLODIPine Yes 5mg 5 mg, Univer s (NORVASC) 16 Oral, ity of tablet 5 mg 20:15: DAILY, [place] 00 First dose Medical on Branch 10/13/22 at 1515, Until Discontinu ed, Routine hydralAZINE Yes 10mg 10 mg, Univ ers (APRESOLINE 10-13 Slow IV ity o f ) injection 20:06: Push, [place] 10 mg 16 Q6HPRN, Medical Starting Branch on Wed10/13/22 at 1506, Until Discontinu ed, Routine, DBP=>10 0; SBP=>180, For SBP > 160 ampicillin- 2022- No 3g 3 g, IV Un arnie sulbactam 10-13 Piggyback, ity of (UNASYN) 3 01:30: 01:11 Q12H ABX, [place] g in NaCl 00 :45 1 dose, Medical 0.9% (NS) First dose Bran ch 100 mL (after MINI-BAG last modificati on) on 10/12/22 at 2030, Administer over 30 Minutes, 100 mL
Reas on for Anti-Infec tive: Documented Infection< br>Documen swathi Infection Site: Respirator y
Durat ion of Therapy: 7 days vancomycin 2022- No 1250mg 1,250 mg, Univers 1,250 mg in 10-12 IV ity of NaCl 0.9% 21:00: 00:08 Piggyback, [place] (NS) 250 mL 00 :00 ONCE, 1 Medic al VIAL-MATE dose, On Branch IV Mon piggyback 10/12/22 at 1600, Administer over 90 Minutes, 250 mL
Reas on for Anti-Infec tive: Documented Infection< br>Documen swathi Infection Site: Blood<br&g t;Duration of Therapy: 7 days methocarbam 2022-0 Yes 750mg 750 mg, Un arnie oL 5-15 Oral, ity of (ROBAXIN) 13:06: TIDPRN, [place] tablet 750 58 Starting Medic al mg on [facility] 10/12/22 at 0806, Until Discontinu ed, Routine, Muscle Spasms atorvastati 0 Yes 40mg 40 mg, Univ ers n (LIPITOR) 5-15 Oral, QHS, it y of tablet 40 02:00: First dose [place] mg 00 on [facility] 10/11/22 at Branch 2100, Until Discontinu ed, Routine docusate 0 Yes 100mg 100 mg, Unive rs (COLACE) 5-15 Oral, BID, ity o f capsule 100 01:30: First dose [place] mg 00 on [facility] 10/11/22 at Branch 2030, Until Discontinu ed, Routine aspirin EC 0 Yes 81mg 81 mg, Unive rs tablet 81 5-14 Oral, ity of mg 14:00: DAILY, [place] 00 First dose Medical on [facility] 10/11/22 at 0900, Until Discontinu ed, Routine pantoprazol 0 Yes 40mg 40 mg, Univ ers e 5-14 Oral, ity of (PROTONIX) 14:00: DAILY, [place] EC tablet 00 First dose Medi yahaira 40 mg on [facility] 10/11/22 at 0900, Until Discontinu ed, Routine citalopram 2022-0 Yes 20mg 20 mg, Unive rs (CELEXA) 5-14 Oral, ity of tablet 20 14:00: DAILY, [place] mg 00 First dose Medical on [facility] 10/11/22 at 0900, Until Discontinu ed, Routine azithromyci 2022-0 2022- No 500mg 500 mg, U nivers n 5-14 05-16 Oral, ity of (ZITHROMAX) 14:00: 12:48 DAILY, 3 [place] tablet 500 00 :00 doses, Medical mg First dose Branch on 10/11/22 at 0900, Last dose on Tu10/13/22 at 0900, MELO
Re ason for Anti-Infec tive: Documented Infection< br>Documen swathi Infection Site: Respirator y
Durat ion of Therapy: Other (see Comments) ampicillin- 2022- No 3g 3 g, IV Un arnie sulbactam 10-11 05-15 Piggyback, ity of (UNASYN) 3 13:30: 19:27 Q12H ABX, [place] g in NaCl 00 :15 14 doses, Medic al 0.9% (NS) First dose Bran ch 100 mL on Sun MINI-BAG 10/11/22 at 0830, Last dose on Wed10/17/22 at 2030, Administer over 30 Minutes, 100 mL
Reas on for Anti-Infec tive: Documented Infection& lt;br>Docu mented Infection Site: Respirator y
Durat ion of Therapy: 7 days ASPIRIN 2022- No 81mg Take 81 mg Uni vers (ASPIR-81 10-11 05-13 by mouth ity o f ORAL) 07:29: 00:00 daily. [place] 15 :00 Medical Branch hydralAZINE 2022- No 100mg Take 100 Univers (APRESOLINE - 05-13 mg by ity of ) 100 mg 07:29: 00:00 mouth [place] tablet 15 :00 daily. Medical Branch montelukast 2022- No 10mg Take 10 mg Univers (SINGULAIR) 10-11 05-13 by mouth ity of 10 mg 07:29: 00:00 daily. [place] tablet 15 :00 Medical Branch D5W 0.45% 2022- No 1000mL at 50 Univ ers NaCl 10-11 05-14 mL/hr, ity of (1/2NS) IV 04:15: 17:06 1,000 mL, [place] infusion 00 :11 IV Medical 1,000 mL Infusion, Branch CONTINUOUS , Starting on 10/10/22 at 2315, Until 10/11/22 at 1206, MELO heparin Yes 5000U 5,000 Univers (porcine) 5-14 Units, ity of injection 03:00: Subcutaneo [place] 5,000 Units 00 us, Q8H, Medi yahaira First dose Branch on 10/10/22 at 2200, Until Discontinu ed, Routine Sliding Yes Subcutaneo Univ ers Scale 5-14 us, TID ity of Insulin - 02:00: MEALS+HS, [place] as Lispro 00 First dose Medical (HumaLOG) on Sat Branch 10/10/22 at 2100, Until Discontinu ed, Routine D5W 0.45% 2022- No 1000mL at 75 Univ ers NaCl 14 05-14 mL/hr, ity of (1/2NS) IV 01:30: 04:04 1,000 mL, [place] infusion 00 :14 IV Medical 1,000 mL Infusion, Branch CONTINUOUS , Starting on 10/10/22 at 2030, Until 10/10/22 at 2304, MELO glucagon Yes 1mg 1 mg, Univers (GLUCAGEN 10-10 Intramuscu ity of DIAGNOSTIC 22:01: lar, PRN, [place] KIT) 01 Starting Medical injection 1 on Sat Branch mg 10/10/22 at 1701, Until Discontinu ed, MELO, Blood Glucose < or = 70 mg/dL and patient is NPO, unable to swallow or has mental changes. dextrose 50 Yes 25mL 25 mL, Univ ers % in water 10-10 Slow IV ity of (D50W) 22:01: Push, PRN, [place] injection 01 Starting Medica l 25 mL on Sat Branch 10/10/22 at 1701, Until Discontinu ed, MELO, Blood Glucose < or = 70 mg/dL and patient is NPO, unable to swallow or has mental status changes. piperacilli 2022- No 3.375g 3.375 g, Univers n-tazobacta 10-10 05-13 IV ity of m (ZOSYN) 21:30: 21:45 Piggyback, [place] 3.375 g in 00 :00 ONCE, 1 Medica l NaCl 0.9% dose, On Branch (NS) 100 mL Sat MINI-BAG 10/10/22 at 1630, Administer over 30 Minutes, 100 mL
Reas on for Anti-Infec tive: Documented Infection< br>Documen swathi Infection Site: Respirator y
Du ration of Therapy: Other (see Comments) dextrose 50 2022- No 1{syrin 50 mL (1 Univers % in water 10-10 ge} Syringe), ity of (D50W) 20:45: 20:00 Slow IV [place] injection 00 :00 Push, Medical 50 mL ONCE, 1 Branch dose, On 10/10/22 at 1545, STAT D5W 0.45% 2022- No 1000mL at 100 Uni vers NaCl 10-10 mL/hr, ity of (1/2NS) IV 20:30: 01:27 1,000 mL, [place] infusion 00 :29 IV Medical 1,000 mL Infusion, Branch CONTINUOUS , Starting on 10/10/22 at 1530, Until 10/10/22 at 2027, MELO glucagon 2022- No 1mg 1 mg, Univers (GLUCAGEN 10-10 Intravenou ity of DIAGNOSTIC 20:00: 19:45 s, ONCE, 1 [place] KIT) 00 :00 dose, On Medical injection 1 Sat Branch mg 10/10/22 at 1500, MELO Lantus Lantus 0 No Lantus SoloStar SoloStar 8-04 SoloStar 100 UNIT/ML 100 UNIT/ML 00:00: 100 00 UNIT/ML Lantus Lantus 0 No Lantus SoloStar SoloStar 8-04 SoloStar 100 [...] 100 UNIT/ML 00:00: 100 00 UNIT/ML aspirin 0 No Notes: Do Memor ia 7-20 not crush l 14:00: or chew. [place] 00 (Same As: Ecotrin) Procardia No Notes: Memori a XL 30 mg 7-20 (Same as: l oral 14:00: Adalat CC, [place] tablet, 00 Procardia extended XL) Give release on empty stomach. Take 1 hour before or 2 hours after meal; "Avoid grapefruit and grapefruit juice". Do not crush Epogen No Notes: Memoria (ESRD) 7-20 Same as: l 14:00: Retacrit) [place] 00 epoetin shannon-epbx 75762 unit/1 ml VL. For dialysis use only. WASTE: F/P - Red; E Red MEDICATION WASTE Product Size: 26012 unit Product Wasted: ___ unit aspirin No Notes: Do Memor ia 7-20 not crush l 14:00: or chew. [place] 00 (Same As: Ecotrin) Procardia No Notes: Memori a XL 30 mg 7-20 (Same as: l oral 14:00: Adalat CC, [place] tablet, 00 Procardia extended XL) Give release on empty stomach. Take 1 hour before or 2 hours after meal; "Avoid grapefruit and grapefruit juice". Do not crush Epogen No Notes: Memoria (ESRD) 7-20 Same as: l 14:00: Retacrit) [place] 00 epoetin shannon-epbx 35498 unit/1 ml VL. For dialysis use only. WASTE: F/P - Red; E Red MEDICATION WASTE Product Size: 20899 unit Product Wasted: ___ unit aspirin No Notes: Do Memor ia 7-20 not crush l 14:00: or chew. [place] 00 (Same As: Ecotrin) Procardia No Notes: Memori a XL 30 mg 7-20 (Same as: l oral 14:00: Adalat CC, [place] tablet, 00 Procardia extended XL) Give release on empty stomach. Take 1 hour before or 2 hours after meal; "Avoid grapefruit and grapefruit juice". Do not crush Epogen No Notes: Memoria (ESRD) 7-20 Same as: l 14:00: Retacrit) [place] 00 epoetin shannon-epbx 83170 unit/1 ml VL. For dialysis use only. WASTE: F/P - Red; E Red MEDICATION WASTE Product Size: 07007 unit Product Wasted: ___ unit Lipitor No Notes: Memoria 7-20 (Same as: l 02:00: Lipitor) [place] 00 Lipitor No Notes: Memoria 7-20 (Same as: l 02:00: Lipitor) [place] 00 Lipitor No Notes: Memoria 7-20 (Same as: l 02:00: Lipitor) [place] cefdinir No Notes: Memoria 300 mg oral 7-19 (Same As: l capsule 22:00: Omnicef) Thomas n 00 cefdinir No Notes: Memoria 300 mg oral 7-19 (Same As: l capsule 22:00: Omnicef) Thomas n cefdinir 2021-0 No Notes: Memoria 300 mg oral 7-19 (Same As: l capsule 22:00: Omnicef) Thomas n dexamethaso 2-0 Yes 6 mg = 1 Me moria ne 6 mg 7-19 tab, PO, l oral tablet 21:19: Daily, X 3 [place] day, # 3 tab, 0 Refill(s), Pharmacy: [id number], 177.8, cm, 12/14/21 22:03:00 CDT, Height, 95.2, kg, 12/14/21 22:03:00 CDT, Weight dexamethaso 2021-0 Yes 6 mg = 1 Me moria ne 6 mg 7-19 tab, PO, l oral tablet 21:19: Daily, X 3 [place] day, # 3 tab, 0 Refill(s), Pharmacy: [email or web address] #[id number], 177.8, cm, 12/14/21 22:03:00 CDT, Height, 95.2, kg, 12/14/21 22:03:00 CDT, Weight dexamethaso 2021-0 Yes 6 mg = 1 Me moria ne 6 mg 7-19 tab, PO, l oral tablet 21:19: Daily, X 3 [place] day, # 3 tab, 0 Refill(s), Pharmacy: [email or web address] #[id number], 177.8, cm, 12/14/21 22:03:00 CDT, Height, 95.2, kg, 12/14/21 22:03:00 CDT, Weight guaiFENesin 2021-0 No 600 mg = 1 Memoria 600 mg oral 7-19 tab, PO, l tablet, 20:31: Q12H, # 20 Herm silas extended 00 tab, 0 release Refill(s) guaiFENesin 2-0 No 600 mg = 1 Memoria 600 mg oral 7-19 tab, PO, l tablet, 20:31: Q12H, # 20 Herm silas extended 00 tab, 0 release Refill(s) guaiFENesin 2-0 No 600 mg = 1 Memoria 600 mg oral 7-19 tab, PO, l tablet, 20:31: Q12H, # 20 Herm silas extended 00 tab, 0 release Refill(s) pregabalin Yes 50 mg = 1 Me moria 50 mg oral 7-19 cap, PO, l capsule 20:30: BID, # 60 Lauryn nn 00 cap, 1 Refill(s) pregabalin 0 Yes 50 mg = 1 Me moria 50 mg oral 7-19 cap, PO, l capsule 20:30: BID, # 60 Lauryn nn 00 cap, 1 Refill(s) pregabalin 0 Yes 50 mg = 1 Me moria 50 mg oral 7-19 cap, PO, l capsule 20:30: BID, # 60 Lauryn nn 00 cap, 1 Refill(s) melatonin 3 Yes 3 mg = 1 Me moria mg oral 7-19 tab, PO, l tablet 20:29: Bedtime, [place] PRN for insomnia, # 14 tab, 0 Refill(s) melatonin 3 Yes 3 mg = 1 Me moria mg oral 7-19 tab, PO, l tablet 20:29: Bedtime, [place] PRN for insomnia, # 14 tab, 0 Refill(s) melatonin 3 Yes 3 mg = 1 Me moria mg oral 7-19 tab, PO, l tablet 20:29: Bedtime, [place] PRN for insomnia, # 14 tab, 0 Refill(s) Colace 100 0 Yes 100 [...] l oral tablet 20:27: Q12H, # 60 [place] 00 tab, 0 Refill(s) aspirin 81 0 Yes 81 mg = 1 Me moria mg tablet, 7-19 tab, PO, l enteric 20:26: Daily, # Thomas n coated 00 90 tab, 3 Refill(s) aspirin 81 2021-0 Yes 81 mg = 1 Me moria mg tablet, 7-19 tab, PO, l enteric 20:26: Daily, # Thomas n coated 00 90 tab, 3 Refill(s) aspirin 81 2021-0 Yes 81 mg = 1 Me moria [...] (Same As: Zithromax) azithromyci No Notes: Heath broussard n 250 mg 12-16 Take 1 l oral tablet 19:00: hour Thomas n 00 before or 2 hours after meals. (Same As: Zithromax) sevelamer No Notes: Memori a 12-16 Same as: l 13:00: Renvela [place] sevelamer No Notes: Memori a 12-16 Same as: l 13:00: Renvela [place] sevelamer No Notes: Memori a 12-16 Same as: l 13:00: Renvela [place] albumin Yes Notes: Lot Heath mercado 25% 12-16 #: l intravenous 02:33: [place] solution ___ Mfg: (Same as: Plasbumin- 25) "blood product derivative " WASTE: F/P - Red; E -Red MEDICATION WASTE Product Size: 25 gm Product Wasted: ___ gm albumin Yes Notes: Lot Heath mercado 25% 12-16 #: l intravenous 02:33: [place] solution ___ Mfg: (Same as: Plasbumin- 25) "blood product derivative " WASTE: F/P - Red; E -Red MEDICATION WASTE Product Size: 25 gm Product Wasted: ___ gm albumin Yes Notes: Lot Heath mercado 25% 12-16 #: l intravenous 02:33: [place] solution ___ Mfg: (Same as: Plasbumin- 25) "blood [...] pratropium 7-18 Same as: l 13:00: Combivent [place] Respimat WASTE: Aerosol - Return to Pharmacy albuterol-i No Notes: Heath bobo pratropium 7-18 Same as: l 13:00: Combivent [place] Respimat WASTE: Aerosol - Return to Pharmacy albuterol-i 0 No Notes: Heath bobo pratropium 7-18 Same as: l 13:00: Combivent [place] 00 Respimat WASTE: Aerosol - Return to Pharmacy heparin 0 No 5,000 Memoria 7-18 unit, l 05:00: Route: [place] 00 SUB-Q, Q8H, Dosing Weight 95.455, kg, Start date: 12/15/21 0:00:00 CDT, Stop date: 01/13/22 16:00:00 CDT heparin 2021-0 No 5,000 Memoria 7-18 unit, l 05:00: Route: [place] 00 SUB-Q, Q8H, Dosing Weight 95.455, kg, Start date: 12/15/21 0:00:00 CDT, Stop date: 01/13/22 16:00:00 CDT heparin No 5,000 Memoria 7-18 unit, l 05:00: Route: [place] 00 SUB-Q, Q8H, Dosing Weight 95.455, kg, Start date: 12/15/21 0:00:00 CDT, Stop date: 01/13/22 16:00:00 CDT heparin No Notes: Memoria 7-18 porcine l 02:00: heparin [place] heparin No Notes: Memoria 7-18 porcine l 02:00: heparin [place] heparin No Notes: Memoria 7-18 porcine l 02:00: heparin [place] albuterol-i No Notes: Heath bobo pratropium 7-18 (Same as: l 2.5-0.5 mg 01:00: Duoneb) Herm silas inhalation 00 solution albuterol-i No Notes: Heath bobo pratropium 7-18 (Same as: l 2.5-0.5 mg 01:00: Duoneb) Herm silas inhalation 00 solution albuterol-i No Notes: Heath bobo pratropium 7-18 (Same as: l 2.5-0.5 mg 01:00: Duoneb) Herm silas inhalation 00 solution vancomycin 2000 mg: Me moria + Sodium 7-18 infuse l Chloride 00:37: over 2.5 Lauryn nn 0.9% IV 250 00 hours For mL adult patients only: Round to nearest 250 mg per Medical Staff approval MEDICATION WASTE Product Size: 1000 mg Product Wasted: ___ mg vancomycin 2000 mg: Me moria + Sodium 7-18 infuse l Chloride 00:37: over 2.5 Lauryn nn 0.9% IV 250 00 hours For mL adult patients only: Round to nearest 250 mg per Medical Staff approval MEDICATION WASTE Product Size: 1000 mg Product Wasted: ___ mg vancomycin 2000 mg: Me moria + Sodium 7-18 [...] Rate: 999 l Water IV 23:57: ml/hr, [place] 00 Infuse over: 0.1 hr, Route: IV, Total Volume: 125, Start date: 12/14/21 18:57:00 CDT, Duration: 30 day, Stop date: 01/13/22 18:56:00 CDT, PRN Blood Glucose Results, 0 Dextrose No 125 mL, Memori a 10% in 12-14 Rate: 999 l Water IV 23:57: ml/hr, [place] 00 Infuse over: 0.1 hr, Route: IV, [...] Rate: 999 l Water IV 23:53: ml/hr, [place] 00 Infuse over: 0.3 hr, Route: IV, [...] Blood Glucose Results, 0 [facility] Vancom[facility] l Dosing 23:36: Pharmacy [place] Consult 47 Dosing Protocol PHARMAC Y USE ONLY Note: This is not a medication order. This is a consultati on order. Vancomycin No Notes: [facility] Pharmacy 12-14 Vancomycin l Dosing 23:36: Pharmacy [place] Consult 47 Dosing Protocol PHARMAC Y USE ONLY Note: This is not a medication order. This is a consultati on order. Vancomycin No Notes: [facility] Pharmacy 12-14 Vancomycin l Dosing 23:36: Pharmacy [place] Consult 47 Dosing Protocol PHARMAC Y USE [...] Tylenol) albuterol-i No Notes: Heath bobo pratropium 12-14 (Same as: l 2.5-0.5 mg 23:30: Duoneb) Herm silas inhalation solution Chlorasepti No Notes: Heath bobo c 1.4% 12-14 Chlorasept l spray 23:30: ic [place] (Same as: Chlorasept ic, Sore Throat [place]) WASTE: F/P - Black; E - Municipal Trash Bin Colace 100 No Notes: Memor ia mg oral 7-17 (Same as: l capsule 23:30: Colace) (Do Not Crush) hydrALAZINE No Notes: Heath bobo 7-17 (Same as: l 23:30: Apresoline ) Push over 5 minutes melatonin 3 No Notes: Heath bobo mg oral 7-17 (Same as: l tablet 23:30: Melatonin) simethicone No Notes: Heath bobo 7-17 (Same [...] l 23:30: 4 gm/day. (Same as: Tylenol) Pepcid 20 No Notes: Memori a mg oral 7-17 (Same as: l tablet 23:30: Pepcid) albuterol-i No Notes: Heath bobo pratropium 7-17 (Same as: l 2.5-0.5 mg 23:30: Duoneb) inhalation 00 solution Chlorasepti No Notes: Heath bobo c 1.4% 7-17 Chlorasept l spray 23:30: ic [place] Booker (Same as: Chlorasept ic, Sore Throat [place]) WASTE: F/P - Black; E - Municipal Trash Bin Colace 100 No Notes: Memor ia mg oral 7-17 (Same as: l capsule 23:30: Colace) [place] (Do Not Crush) hydrALAZINE No Notes: Heath bobo 7-17 (Same as: l 23:30: Apresoline [place] ) Push over 5 minutes melatonin 3 No Notes: Heath bobo mg oral 7-17 (Same as: l tablet 23:30: Melatonin) Lauryn nn 00 Pepcid 20 No Notes: Memori a mg oral 7-17 (Same as: l tablet 23:30: Pepcid) [place] 5/325 No Notes: Heath bobo oral tablet 7-17 (Same as: l 23:30: [place] 00 325/5) Do not exceed 4gm/day of acetaminop hen. morphine No 1 mg, 0.5 Heath bobo Sulfate 7-17 mL, Route: l 23:30: IVP, Drug form: SOLN, Q4H, Dosing Weight 95.455, kg, PRN Pain Score 7-10, Start date: 12/14/21 18:30:00 CDT, Duration: 30 day, Stop date: 01/13/22 18:29:00 CDT, 0 [place] 5/325 No Notes: Heath bobo oral tablet 7-17 (Same as: l 23:30: [place] 00 325/5) Do not exceed 4gm/day of acetaminop hen. morphine No 1 mg, 0.5 Heath bobo Sulfate 7-17 mL, Route: l 23:30: IVP, Drug [place] 00 form: SOLN, Q4H, Dosing Weight 95.455, kg, [...] 1.4% 7-17 Chlorasept l spray 23:30: ic [place] (Same as: Chlorasept ic, Sore Throat [place]) WASTE: F/P - Black; E - Municipal [...] 7-17 (Same as: l tablet 23:30: Pepcid) [place] 5/325 No Notes: Heath bobo oral tablet 7-17 (Same as: l 23:30: [place] 325/5) Do not exceed 4gm/day of acetaminop hen. morphine No 1 mg, 0.5 Heath bobo Sulfate 7-17 mL, Route: l 23:30: IVP, Drug form: SOLN, Q4H, Dosing Weight 95.455, kg, PRN Pain Score 7-10, Start date: 12/14/21 18:30:00 CDT, Duration: 30 day, Stop date: 01/13/22 18:29:00 CDT, 0 Dextrose 2021-0 No 25 mL, Memoria 50% Syringe -17 Route: l (D50W) 23:29: IVP, Dosing Weight [...] 0 insulin 2021-0 No Notes: Memoria lispro 7-17 (Same as: l 23:29: Humalog) Roll in palms of hands gently; Do not shake vigorously . WASTE: F/P - Black; E - Municipal Trash Bin Stable for 28 days at room temperatur e. Expires in days from ____Date Dextrose 2021-0 No 25 mL, Memoria 50% Syringe 7-17 Route: l (D50W) 23:29: IVP, [place] 00 Dosing Weight 95.455, kg, PRN, PRN Blood Glucose Results, Start date: 12/14/21 18:29:00 CDT, Duration: 30 day, Stop date: 01/13/22 18:28:00 CDT glucagon 2-0 No 1 mg, Memoria 7-17 Route: IM, l 23:29: Drug form: [place] 00 PDR/INJ, PRN, Dosing Weight 95.455, kg, PRN Blood Glucose Results, Start date: 12/14/21 18:29:00 CDT, Duration: 30 day, Stop date: 01/13/22 18:28:00 CDT, 0 insulin 2021-0 No Notes: Memoria lispro 7-17 (Same as: l 23:29: Humalog) [place] 00 Roll in palms of hands gently; Do not shake vigorously . WASTE: F/P - Black; E - Municipal Trash Bin Stable for 28 days at room temperatur e. Expires in days from ____Date Dextrose 2021-0 No 25 mL, Memoria 50% Syringe 7-17 Route: l (D50W) 23:29: IVP, [place] 00 Dosing Weight 95.455, kg, PRN, PRN Blood Glucose Results, Start date: 12/14/21 18:29:00 CDT, Duration: 30 day, Stop date: 01/13/22 18:28:00 CDT glucagon 2021-0 No 1 mg, Memoria 7-17 Route: IM, l 23:29: Drug form: [place] 00 PDR/INJ, PRN, Dosing Weight 95.455, kg, PRN Blood Glucose Results, Start date: 12/14/21 18:29:00 CDT, Duration: 30 day, Stop date: 01/13/22 18:28:00 CDT, 0 insulin 2021-0 No Notes: Memoria lispro 7-17 (Same as: l 23:29: Humalog) [place] 00 Roll in palms of hands gently; Do not shake vigorously . WASTE: F/P - Black; E - Municipal Trash Bin Stable for 28 days at room temperatur e. Expires in days from ____Date No Notes: Memoria Perles 7-17 (Same As: l 23:28: Tessalon Perles) "Do Not Crush" zinc No Notes: Memoria sulfate 7-17 (Zinc l 23:28: sulfate [place] 00 capsule) - 220 mg Zinc sulfate = 50 mg elemental zinc Same as Zinc Sulfate ascorbic No Notes: Memoria acid 7-17 (Same as: l 23:28: Vitamin C) No Notes: Memoria Perles 7-17 (Same As: l 23:28: Tessalon Perles) "Do Not Crush" zinc No Notes: Memoria sulfate 7-17 (Zinc l 23:28: sulfate capsule) - 220 mg Zinc sulfate = 50 mg elemental zinc Same as Zinc Sulfate ascorbic No Notes: Memoria acid 7-17 (Same as: l 23:28: Vitamin C) on No Notes: Memoria Perles 7-17 (Same [...] 0.9% IV 250 00 IV) mL aspirin 0 No Notes: Memoria 7-17 Take with l [...] (Same As: l Chloride 22:40: Rocephin). Her clayotn 0.9% IV 50 00 Use with mL 100 mL NS and infuse over 30 min MEDICATION WASTE Product Size: 1000 mg Product Wasted: ___ mg azithromyci No Notes: Heath bobo n + Sodium 7-17 (Same As: l Chloride 22:40: Zithromax Herm silas 0.9% IV 250 00 IV) mL Dextrose 2021-0 No 250 mL, Memori a 10% in 12-14 Rate: 999 l Water IV 21:08: ml/hr, Infuse over: 0.3 hr, Route: IV, Total Volume: 250, Start date: 12/14/21 16:08:00 CDT, Stop date: 12/14/21 16:08:00 CDT, 0 Dextrose 2021-0 No 250 mL, Memori a 10% in 12-14 Rate: 999 l Water IV 21:08: ml/hr, Infuse over: 0.3 hr, Route: IV, Total Volume: 250, Start date: 12/14/21 16:08:00 CDT, Stop date: 12/14/21 16:08:00 CDT, 0 Dextrose 2021-0 No 250 mL, Memori a 10% in 12-14 Rate: 999 l Water IV 21:08: ml/hr, [place] 00 Infuse over: 0.3 hr, Route: IV, Total Volume: 250, Start date: 12/14/21 16:08:00 CDT, Stop date: 12/14/21 16:08:00 CDT, 0 d50 syringe 2022-0 No 25 mL, Heath bobo 7- Route: l 20:41: IVP, [place] Dosing Weight 95.455, kg, ONCE, STAT, Start date: 12/14/21 15:41:00 CDT, Stop date: 12/14/21 15:41:00 CDT, 25 ml = 12.5 gm d50 syringe 2022-0 No 25 mL, Heath bobo 7 Route: l 20:41: IVP, [place] 00 Dosing Weight 95.455, kg, ONCE, STAT, Start date: 12/14/21 15:41:00 CDT, Stop date: 12/14/21 15:41:00 CDT, 25 ml = 12.5 gm d50 syringe 2022-0 No 25 mL, Heath bobo 7- Route: l 20:41: IVP, [place] 00 Dosing Weight 95.455, kg, ONCE, STAT, Start date: 12/14/21 15:41:00 CDT, Stop date: 12/14/21 15:41:00 CDT, 25 ml = 12.5 gm Sodium 2022-0 No 250 mL, Memoria Chloride 7- Rate: To l 0.9% 01:29: prime line Booker (titrate) 00 and flush 250 mL remaining blood products., Dosing Weight 88.636, kg, Route: IV, Total Volume: 250, Start Date: 12/03/21 20:29:00 CDT, Duration: 1 day, Stop date: 12/04/21 20:28:00 CDT, Replace Every: 24 hr, 0 Sodium 2022-0 No 250 mL, Memoria Chloride 7-07 Rate: To l 0.9% 01:29: prime line [place] (titrate) 00 and flush 250 mL remaining blood products., Dosing Weight 88.636, kg, Route: IV, Total Volume: 250, Start Date: 12/03/21 20:29:00 CDT, Duration: 1 day, Stop date: 12/04/21 20:28:00 CDT, Replace Every: 24 hr, 0 Sodium 2021-0 No 250 mL, Memoria Chloride 12-04 Rate: To l 0.9% 01:29: prime line [place] (titrate) 00 and flush 250 mL remaining blood products., Dosing Weight 88.636, kg, Route: IV, Total Volume: 250, Start Date: 12/03/21 20:29:00 CDT, Duration: 1 day, Stop date: 12/04/21 20:28:00 CDT, Replace Every: 24 hr, 0 Plavix 75 2021-0 Yes 75 mg = 1 Mem oria mg oral 6-28 tab, PO, l tablet 19:37: Daily, # [place] 00 30 tab, 0 Refill(s), other Plavix 75 202-0 Yes 75 mg = 1 Mem oria mg oral 6-28 tab, PO, l tablet 19:37: Daily, # [place] 00 30 tab, 0 Refill(s), other Plavix 75 2021-0 Yes 75 mg = 1 Mem oria mg oral 6-28 tab, PO, l tablet 19:37: Daily, # [place] 00 30 tab, 0 Refill(s), other Protonix No Notes: For Mem oria 6-28 IV push l 14:00: reconstitu [place] 00 te with 10 ml 0.9% sodium chloride and push over 2 minutes. (Same as: Protonix) atorvastati No Notes: Ehath bobo n 6-28 (Same as: l 14:00: Lipitor) [place] citalopram No Notes: Memor ia 6-28 (Same As: l 14:00: CeleXA) Protonix No Notes: For Mem oria 6-28 IV push l 14:00: reconstitu [place] 00 te with 10 ml 0.9% sodium chloride and push over 2 minutes. (Same as: Protonix) atorvastati No Notes: Heath bobo n 6-28 (Same as: l 14:00: Lipitor) [place] 00 citalopram No Notes: Memor ia 6-28 (Same As: l 14:00: CeleXA) Protonix No Notes: For Mem oria 11-25 IV push l 14:00: reconstitu te with 10 ml 0.9% sodium chloride and push over 2 minutes. (Same as: Protonix) atorvastati No Notes: Heath bobo n - (Same as: l 14:00: Lipitor) citalopram No Notes: Memor ia - (Same As: l 14:00: CeleXA) dexamethaso No Notes: Heath bobo ne - Concentrat l 06:42: ion: [place] 00 4mg/ml dexamethaso No Notes: Heath bobo ne - Concentrat l 06:42: ion: [place] 00 4mg/ml dexamethaso No Notes: Heath bobo ne - Concentrat l 06:42: ion: [place] 00 4mg/ml D10W No 125 mL, Memoria (bolus) IV 11-25 [...] IV 11-25 Rate: 999 l 06:31: ml/hr, [place] 00 Infuse over: 0.1 hr, Route: IVPB, Total Volume: 125, Start date: 11/25/21 1:31:00 CDT, Duration: 30 day, Stop date: 12/25/21 1:30:00 CDT, PRN Blood Glucose Results, 0 2021-0 No 250 mL, Memoria (bolus) IV 11-25 Rate: 999 l 06:23: ml/hr, [place] Infuse over: 0.3 hr, Route: IVPB, Total Volume: 250, Start date: 11/25/21 1:23:00 CDT, Duration: 30 day, Stop date: 12/25/21 1:22:00 CDT, PRN Blood Glucose Results, 0 2021-0 No 250 mL, Memoria (bolus) IV 11-25 Rate: 999 l 06:23: ml/hr, [place] 00 Infuse over: 0.3 hr, Route: IVPB, Total Volume: 250, Start date: 11/25/21 1:23:00 CDT, Duration: 30 day, Stop date: 12/25/21 1:22:00 CDT, PRN Blood Glucose Results, 0 2021-0 No 250 mL, Memoria (bolus) IV 11-25 Rate: 999 l 06:23: ml/hr, [place] 00 Infuse over: 0.3 hr, Route: IVPB, Total Volume: 250, Start date: 11/25/21 1:23:00 CDT, Duration: 30 day, Stop date: 12/25/21 1:22:00 CDT, PRN Blood Glucose Results, 0 Dextrose 2021-0 No 25 mL, Memoria 50% Syringe 11-25 Route: l (D50W) 05:55: IVP, [place] 00 Dosing Weight 94.545, kg, PRN, PRN [...] lispro 6-28 (Same as: l 05:55: Humalog) [place] 00 Roll in palms of hands gently; Do not shake vigorously . WASTE: F/P - Black; E - Municipal Trash Bin Stable for 28 days at room temperatur e. Expires in days from ____Date Dextrose 2021-0 No 25 mL, Memoria 50% Syringe 11-25 Route: l (D50W) 05:55: IVP, [place] 00 Dosing Weight 94.545, kg, PRN, PRN Blood Glucose Results, Start date: 11/25/21 0:55:00 CDT, Duration: 30 day, Stop date: 12/25/21 0:54:00 CDT glucagon 2021-0 No 1 mg, Memoria 11-25 Route: IM, l 05:55: Drug form: [place] 00 PDR/INJ, PRN, Dosing Weight 94.545, kg, PRN Blood Glucose Results, Start date: 11/25/21 0:55:00 CDT, Duration: 30 day, Stop date: 12/25/21 0:54:00 CDT, 0 insulin 2021-0 No Notes: Memoria lispro 6-28 (Same as: l 05:55: Humalog) [place] 00 Roll in palms of hands gently; Do not shake vigorously . WASTE: F/P - Black; E - Municipal Trash Bin Stable for 28 days at room temperatur e. Expires in days from ____Date Dextrose 2021-0 No 25 mL, Memoria 50% Syringe 11-25 [...] CDT, 0 insulin No Notes: [facility]oria lispro 6-28 (Same as: l 05:55: Humalog) Roll in palms of hands gently; Do not shake vigorously . WASTE: F/P - Black; E - Municipal Trash Bin Stable for 28 days at room temperatur e. Expires in days from ____Date Zofran No Notes: Memoria 6-28 (Same as: l 05:54: Zofran) [place] 00 MEDICATION WASTE Product Size: 4 mg Product Wasted: ___ mg Tylenol No Notes: Do Memor ia 6-28 not exceed l 05:54: 4 gm/day. [place] 00 (Same as: Tylenol) Tessalon No Notes: Memoria Perles 6-28 (Same As: l 05:54: Tessalon [place] 00 Perles) "Do Not Crush" simethicone No Notes: Heath bobo 6-28 (Same as: l 05:54: Mylicon) senna 8.6 No Notes: Memori a mg oral 6-28 (Same as: l tablet 05:54: Senokot) 00 Colace 50 No Notes: Memori a mg oral 6-28 (Same as: l capsule 05:54: Colace) [place] 00 Zofran No Notes: Memoria 6-28 (Same as: l 05:54: Zofran) [place] 00 MEDICATION WASTE Product Size: 4 mg Product [...] 6-28 not exceed l 05:54: 4 gm/day. (Same as: Tylenol) Tessalon No Notes: Memoria Perles 6-28 (Same As: l 05:54: Tessalon Perles) "Do [...] 40 mg 6-28 Refill(s) l oral 05:53: 00 coated tablet clindamycin Yes 0 Memori a 300 mg oral 6-28 Refill(s) l capsule 05:53: clopidogrel No 0 Memori a 75 mg oral 6-28 Refill(s) l tablet 05:53: atorvastati Yes 0 Memori a n 40 mg 6-28 Refill(s) l oral tablet 05:53: Thomas n Basaglar 2021-0 Yes 0 Memoria KwikPen 100 6-28 Refill(s) l units/mL 05:53: utane s solution Dialyvite 2021-0 Yes 0 Memoria 800 Ultra D 6-28 Refill(s) l oral tablet 05:53: Thomas n glipiZIDE 2021-0 Yes 0 Memoria 10 mg oral 6-28 Refill(s) l tablet 05:53: citalopram 2021-0 Yes 0 Memoria 20 mg oral 6-28 Refill(s) l tablet 05:53: pantoprazol 2021-0 Yes 0 Memori a e 40 mg 6-28 Refill(s) l oral 05:53: 00 coated tablet clindamycin 2021-0 Yes 0 Memori a 300 mg oral 6-28 Refill(s) l capsule 05:53: clopidogrel 2021-0 No 0 Memori a 75 mg oral 6-28 Refill(s) l tablet 05:53: atorvastati 2021-0 Yes 0 Memori a n 40 mg 6-28 Refill(s) l oral tablet 05:53: Basaglar 2021-0 Yes 0 Memoria KwikPen 100 6-28 Refill(s) l units/mL 05:53: s solution Dialyvite 2021-0 Yes 0 Memoria 800 Ultra D 6-28 Refill(s) l oral tablet 05:53: Thomas n glipiZIDE 2021-0 Yes 0 Memoria 10 mg oral 6-28 Refill(s) l tablet 05:53: citalopram 2021-0 Yes 0 Memoria 20 mg oral 6-28 Refill(s) l tablet 05:53: pantoprazol 2021-0 Yes 0 Memori a e 40 mg 6-28 Refill(s) l oral 05:53: enteric 00 coated tablet clindamycin 2021-0 Yes 0 Memori a 300 mg oral 6-28 Refill(s) l capsule 05:53: clopidogrel 2021-0 No 0 Memori a 75 mg oral 6-28 Refill(s) l tablet 05:53: [place] 00 atorvastati Yes 0 Memori a n 40 mg 6-28 Refill(s) l oral tablet 05:53: Thomas n 00 Basaglar Yes 0 Memoria KwikPen 100 6-28 Refill(s) l units/mL 05:53: [place] subcutaneou 00 s solution Dialyvite Yes 0 Memoria 800 Ultra D 6-28 Refill(s) l oral tablet 05:53: Thomas n 00 glipiZIDE Yes 0 Memoria 10 mg oral 6-28 Refill(s) l tablet 05:53: [place] 00 cefTRIAXone No Notes: Heath bobo + [...] oria 6-28 IV push l 03:37: reconstitu [place] 00 te with 10 ml 0.9% sodium chloride and push over 2 minutes. (Same as: Protonix) Protonix No Notes: For Mem oria 6-28 IV push l 03:37: reconstitu [place] 00 te with 10 ml 0.9% sodium chloride and push over 2 minutes. (Same as: Protonix) Protonix No Notes: For Mem oria 6-28 IV push l 03:37: reconstitu [place] 00 te with 10 ml 0.9% sodium chloride and push over 2 minutes. (Same as: Protonix) Advair HFA Advair HFA Yes Naveed 2 puffs Common 1-15 [facility] 00:00: - [facility] 00 [facility] 2018-05 Yes Naveed 1 needle Common Ultra-Fine Ultra-Fine 0-09 Fortune with Sp jerome Christina Pen Christina Pen 00:00: Basaglar - [facility] [place] 00 [facility] 2018-05 No QD BD Ultra-Fine Ultra-Fine 0-09 Ultra-Fine Christina Pen Christina Pen 00:00: Christina Pen [place] 4mm [place] 4mm 00 [place] x 32Gm x 32Gm 4mm x 32Gm [facility] 2018-05 No QD BD Ultra-Fine Ultra-Fine 0-09 Ultra-Fine Christina Pen Christina Pen 00:00: Christina Pen [place] 4mm [place] 4mm 00 [place] x 32Gm x 32Gm 4mm x 32Gm [facility] 2018-05 No QD BD Ultra-Fine Ultra-Fine 0-09 Ultra-Fine Christina Pen Christina Pen 00:00: Christina Pen [place] 4mm [place] 4mm 00 [place] x 32Gm x 32Gm 4mm x 32Gm [facility] 2018-05 No QD BD Ultra-Fine Ultra-Fine 0-09 Ultra-Fine Christina Pen Christina Pen 00:00: Christina Pen [place] 4mm [place] 4mm 00 [place] x 32Gm x 32Gm 4mm x 32Gm [facility] 2018-05 No QD BD Ultra-Fine Ultra-Fine 0-09 Ultra-Fine Christina Pen Christina Pen 00:00: Christina Pen [place] 4mm [place] 4mm 00 [place] x 32Gm x 32Gm 4mm x 32Gm [facility]-05 No QD BD Ultra-Fine Ultra-Fine 0-09 Ultra-Fine Christina Pen Christina Pen 00:00: Christina Pen [place] 4mm [place] 4mm 00 [place] x 32Gm x 32Gm 4mm x 32Gm [facility] 2018-05 No QD BD Ultra-Fine Ultra-Fine 0-09 Ultra-Fine Christina Pen Christina Pen 00:00: Christina Pen [place] 4mm [place] 4mm 00 [place] x 32Gm x 32Gm 4mm x 32Gm [facility] 2018-05 No QD BD Ultra-Fine Ultra-Fine 0-09 Ultra-Fine Christina Pen Christina Pen 00:00: Christina Pen [place] 4mm [place] 4mm 00 [place] x 32Gm x 32Gm 4mm x 32Gm BD BD 2018-05 No QD BD Ultra-Fine Ultra-Fine 0-09 Ultra-Fine Christina Pen Christina Pen 00:00: Christina Pen [place] 4mm [place] 4mm 00 [place] x 32Gm x 32Gm 4mm x 32Gm [facility] 2018- No QD BD Ultra-Fine Ultra-Fine 0-09 Ultra-Fine Christina Pen Christina Pen 00:00: Christina Pen [place] 4mm [place] 4mm 00 [place] x 32Gm x 32Gm 4mm x 32Gm [facility] 2018-05 No QD BD Ultra-Fine Ultra-Fine 0-09 Ultra-Fine Christina Pen Christina Pen 00:00: Christina Pen [place] 4mm [place] 4mm 00 [place] x 32Gm x 32Gm 4mm x 32Gm [facility] 2018- No QD BD Ultra-Fine Ultra-Fine 0-09 Ultra-Fine Christina Pen Christina Pen 00:00: Christina Pen [place] 4mm [place] 4mm 00 [place] x 32Gm x 32Gm 4mm x 32Gm [facility] 2018- No QD BD Ultra-Fine Ultra-Fine 0-09 Ultra-Fine Christina Pen Christina Pen 00:00: Christina Pen [place] 4mm [place] 4mm 00 [place] x 32Gm x 32Gm 4mm x 32Gm [facility] 2018-05 No QD BD Ultra-Fine Ultra-Fine 0-09 Ultra-Fine Christina Pen Christina Pen 00:00: Christina Pen [place] 4mm [place] 4mm 00 [place] x 32Gm x 32Gm 4mm x 32Gm [facility] 2018-05 No QD BD Ultra-Fine Ultra-Fine 0-09 Ultra-Fine Christina Pen Christina Pen 00:00: Christina Pen [place] 4mm [place] 4mm 00 [place] x 32Gm x 32Gm 4mm x 32Gm [facility] 2018- No QD BD Ultra-Fine Ultra-Fine 0-09 Ultra-Fine Christina Pen Christina Pen 00:00: Christina Pen [place] 4mm [place] 4mm 00 [place] x 32Gm x 32Gm 4mm x 32Gm [facility] 2018-05 No QD BD Ultra-Fine Ultra-Fine 0-09 Ultra-Fine Christina Pen Christina Pen 00:00: Christina Pen [place] 4mm [place] 4mm 00 [place] x 32Gm x 32Gm 4mm x 32Gm [facility] 2018- No QD BD Ultra-Fine Ultra-Fine 0-09 Ultra-Fine Christina Pen Christina Pen 00:00: Christina Pen [place] 4mm [place] 4mm 00 [place] x 32Gm x 32Gm 4mm x 32Gm [facility] 2018-05 No QD BD Ultra-Fine Ultra-Fine 0-09 Ultra-Fine Christina Pen Christina Pen 00:00: Christina Pen [place] 4mm [place] 4mm 00 [place] x 32Gm x 32Gm 4mm x 32Gm BD 2018-05 No QD BD Ultra-Fine Ultra-Fine 0-09 Ultra-Fine Christina Pen Christina Pen 00:00: Christina Pen [place] 4mm [place] 4mm 00 [place] x 32Gm x 32Gm 4mm x 32Gm BD 2018-05 No QD BD Ultra-Fine Ultra-Fine 0-09 Ultra-Fine Christina Pen Christina Pen 00:00: Christina Pen [place] 4mm [place] 4mm 00 [place] x 32Gm x 32Gm 4mm x 32Gm BD 2018-05 No QD BD Ultra-Fine Ultra-Fine 0-09 Ultra-Fine Christina Pen Christina Pen 00:00: Christina Pen [place] 4mm [place] 4mm 00 [place] x 32Gm x 32Gm 4mm x 32Gm Dexcom G6 Dexcom G6 No Dexcom G6 Ornament Stitcher - Ornament Stitcher - Ornament Stitcher - Ipratropium Ipratropium No Ipratropiu -Albuterol -Albuterol [...] Dexcom G6 Dexcom G6 No Dexcom G6 Ornament Stitcher - Ornament Stitcher - Ornament Stitcher - Gentle Gentle No 1{table QD Gentle [...] Dexcom G6 Dexcom G6 No Dexcom G6 Ornament Stitcher - Ornament Stitcher - Ornament Stitcher - PreserVisio PreserVisio No PreserVisi n AREDS [...] Dexcom G6 Dexcom G6 No Dexcom G6 Ornament Stitcher - Ornament Stitcher - Ornament Stitcher - Advair HFA Advair HFA No 2{puffs [...] Dexcom G6 Dexcom G6 No Dexcom G6 Ornament Stitcher - Ornament Stitcher - Ornament Stitcher - Advair HFA Advair HFA No 2{puffs [...] Dexcom G6 Dexcom G6 No Dexcom G6 Ornament Stitcher - Ornament Stitcher - Ornament Stitcher - Advair HFA Advair HFA No 2{puffs [...] Dexcom G6 Dexcom G6 No Dexcom G6 Ornament Stitcher - Ornament Stitcher - Ornament Stitcher - Atorvastati Atorvastati No 1{table QD Atorvastat [...] Dexcom G6 Dexcom G6 No Dexcom G6 Ornament Stitcher - Ornament Stitcher - Ornament Stitcher - Atorvastati Atorvastati No Atorvastat n Calcium [...] Dexcom G6 Dexcom G6 No Dexcom G6 Ornament Stitcher - Ornament Stitcher - Ornament Stitcher - Atorvastati Atorvastati No Atorvastat n Calcium [...] HFA No 2{puffs BID Advair HFA 230- 230-21 } 230-21 MCG/ACT MCG/ACT MCG/ACT Citalopram [...] 1 tablet C ommon 750 750 [facility] Basaglar Basaglar Yes Naveed 52 Units C ommon KwikPen KwikPen [facility] PreserVisio PreserVisio Yes Naveed as Common n AREDS n AREDS [facility] directed [facility] Citalopram Citalopram Yes Naveed 1 tablet Common Hydrobromid Hydrobromid [facility] e e [facility] Stool Stool Yes Naveed not Common Softener Softener [facility] defined [facility] rit [facility] Gentle Gentle Yes Naveed 1 tablet Commo n Laxative Laxative Fortune as needed S pirit [facility] Atorvastati Atorvastati Yes Naveed 1 tablet Common n Calcium n Calcium [facility] Contour Contour Yes Naveed USE 3 Common Test Test Fortune TIMES A [facility] DAY [facility] Eliquis 2.5 Eliquis 2.5 Yes Naveed 1 tablet Common mg mg [facility] Multivitami Multivitami Yes Naveed as Common n Adult n Adult Fortune directed [facility] Carvedilol Carvedilol Yes Naveed TAKE 1 Common [facility] TABLET BY [facility] MOUTH - [facility] TWICE A St DAY ON NON [facility] DIALYSIS Medical DAYS Center Atorvastati Atorvastati Yes Naveed TAKE 1 Common n Calcium n Calcium Fortune TABLET BY Spirit MOUTH - [facility] EVERY DAY [facility] GlipiZIDE GlipiZIDE Yes Naveed 1 tablet Common [facility] Basaglar Basaglar Yes Naveed 50 Units C ommon KwikPen KwikPen [facility] Advair HFA Advair HFA No [...] Dexcom G6 Dexcom G6 No Dexcom G6 Ornament Stitcher - Ornament Stitcher - Ornament Stitcher - Carvedilol Carvedilol No Carvedilol 12.5 MG [...] Dexcom G6 Dexcom G6 No Dexcom G6 Ornament Stitcher - Ornament Stitcher - Ornament Stitcher - glipiZIDE 5 glipiZIDE 5 No 1{table [...] Calcium 40 MG 40 MG 40 MG Immunizations Ordered Immunization Filled Immunization Date Status Commen ts Source Name Name FluAD FluAD 2021-03-30 [facility] FluAD FluAD 2021-03-30 [facility] FluAD FluAD 2021-03-30 [facility] FluAD FluAD 2021-03-30 [facility] FluAD FluAD 2021-03-30 [facility] FluAD FluAD 2021-03-30 [facility] FluAD FluAD 2021-03-30 [facility] FluAD FluAD 2021-03-30 [facility] FluAD FluAD 2021-03-30 [facility] FluAD FluAD 2021-03-30 [facility] FluAD FluAD 2021-03-30 [facility] - [facility] FluAD FluAD 2021-03-30 [facility] FluAD FluAD 2021-03-30 [facility] FluAD FluAD 2021-03-30 [facility] FluAD FluAD 2021-03-30 [facility] FluAD FluAD 2021-03-30 [facility]:13[facility] - [facility] FluAD FluAD 2021-03-30 [facility]:13[facility] FluAD FluAD 2021-03-30 [facility] FluAD FluAD 2021-03-30 [facility] FluAD FluAD 2021-03-30 [facility]:13:00 [facility] COVID-19 Vaccine COVID-19 Vaccine 2020-08-19 Completed [facility] (Andrea[facility] (Andrea) 09:17:00 [facility] COVID-19 Vaccine COVID-19 Vaccine 2020-08-19 Completed [facility] ([facility]rea[facility] (Andrea) 09:17:00 [facility] COVID-19 Vaccine COVID-19 Vaccine 2020-08-19 Completed [facility] ([facility]rea[facility] (Andrea) 09:17:00 [facility] COVID-19 Vaccine COVID-19 Vaccine 2020-08-19 Completed [facility] ([facility]rea[facility] (Andrea) 09:17:00 [facility] COVID-19 Vaccine COVID-19 Vaccine 2020-08-19 Completed [facility] ([facility]rea[facility] (Andrea) 09:17:00 [facility] COVID-19 Vaccine COVID-19 Vaccine 2020-08-19 Completed [facility] ([facility]rea[facility] (Andrea) 09:17:00 [facility] COVID-19 Vaccine COVID-19 Vaccine 2020-08-19 Completed [facility] ([facility]rea[facility] (Andrea) 09:17:00 [facility] COVID-19 Vaccine COVID-19 Vaccine 2020-08-19 Completed [facility] ([facility]rea[facility] (Andrea) 09:17:00 [facility] COVID-19 Vaccine COVID-19 Vaccine 2020-08-19 Completed [facility] ([facility]rea[facility] (Andrea) 09:17:00 [facility] COVID-19 Vaccine COVID-19 Vaccine 2020-08-19 Completed [facility] ([facility]rea[facility] (Andrea) 09:17:00 [facility] COVID-19 Vaccine COVID-19 Vaccine 2020-08-19 Completed [facility] ([facility]rea[facility] (Andrea) 09:17:00 - [facility] COVID-19 Vaccine COVID-19 Vaccine 2020-08-19 Completed [facility] (Andrea[facility] (Andrea) 09:17:00 - [facility] COVID-19 Vaccine COVID-19 Vaccine 2020-08-19 Completed [facility] (Andrea[facility] (Andrea) 09:17:00 - [facility] COVID-19 Vaccine COVID-19 Vaccine 2020-08-19 Completed [facility] (Andrea[facility] (Andrea) 09:17:00 [facility] COVID-19 Vaccine COVID-19 Vaccine 2020-08-19 Completed [facility] (Andrea[facility] (Andera) 09:17:00 [facility] COVID-19 Vaccine COVID-19 Vaccine 2020-08-19 Completed [facility] (Andrea[facility] (Andrea) 09:17:00 - [facility] COVID-19 Vaccine COVID-19 Vaccine 2020-08-19 Completed [facility] (Andrea[facility] (Andrea) 09:17:00 [facility] COVID-19 Vaccine COVID-19 Vaccine 2020-08-19 Completed [facility] ([facility]rea[facility] (Andrea) 09:17:00 [facility] COVID-19 Vaccine COVID-19 Vaccine 2020-08-19 Completed [facility] ([facility]rea[facility] (Andrea) 09:17:00 [facility] COVID-19 Vaccine COVID-19 Vaccine 2020-08-19 Completed [facility] ([facility]rea[facility] (Andrea) 09:17:00 [facility] COVID-19 Vaccine COVID-19 Vaccine 2020-08-19 Completed [facility] ([facility]rea[facility] (Andrea) 09:17:00 [facility] COVID-19 Vaccine COVID-19 Vaccine 2020-08-19 Completed [facility] ([facility]rea[facility] (Andrea) 09:17:00 [facility] Vital Signs Vital Name Observation Time Observation Value Comments Source Systolic blood 2022-10-31 17:36:00 132 mm[Hg] [facility] Diastolic blood 2022-10-31 17:36:00 61 mm[Hg] [facility] Heart rate 2022-10-31 17:36:00 67 /min [facility] Respiratory rate 2022-10-31 17:36:00 19 /min [facility] Oxygen saturation in 2022-10-31 17:36:00 100 /min [facility] Arterial blood by [facility] Pulse oximetry Branch Body temperature 2022-10-31 13:59:00 37.39 Makayla [facility] Body height 2022-10-31 13:59:00 177.8 cm [facility] Body weight 2022-10-31 13:59:00 71.668 kg [facility] BMI 2022-10-31 13:59:00 22.67 kg/m2 [facility] Heart rate 2022-10-15 19:00:00 92 /min [facility] Respiratory rate 2022-10-15 19:00:00 13 /min [facility] Oxygen saturation in 2022-10-15 19:00:00 86 /min [facility] Arterial blood by [facility] Pulse oximetry Branch Systolic blood 2022-10-15 17:00:00 144 mm[Hg] [facility] Diastolic blood 2022-10-15 17:00:00 53 mm[Hg] Unive rsity of pressure [facility] Body temperature 2022-10-15 16:08:00 37.44 Makayla [facility] Body weight 2022-10-15 14:00:00 70.489 kg [facility] BMI 2022-10-15 14:00:00 25.86 kg/m2 [facility] Body height 2022-10-10 19:00:00 165.1 cm [facility] height 2022-02-17 15:00:00 70 [in_i] [facility] weight 2022-02-17 15:00:00 208 [lb_av] [facility] temperature 2022-02-17 15:00:00 98.1 [degF] [facility] bmi 2022-02-17 15:00:00 29.84 kg/m2 [facility] blood pressure 2022-02-17 15:00:00 121 mm[Hg] [facility] - systolic [facility] blood pressure 2022-02-17 15:00:00 61 mm[Hg] [facility] - diastolic [facility] height 2022-01-06 14:30:00 70 [in_i] [facility] weight 2022-01-06 14:30:00 208 [lb_av] [facility] bmi 2022-01-06 14:30:00 29.84 kg/m2 [facility] blood pressure 2022-01-06 14:30:00 137 mm[Hg] [facility] - systolic [facility] blood pressure 2022-01-06 14:30:00 79 mm[Hg] [facility] - diastolic [facility] height 2021-11-03 09:45:00 70 [in_i] [facility] weight 2021-11-03 09:45:00 210 [lb_av] [facility] bmi 2021-11-03 09:45:00 30.13 kg/m2 [facility] blood pressure 2021-11-03 09:45:00 144 mm[Hg] [facility] - systolic [facility] blood pressure 2021-11-03 09:45:00 86 mm[Hg] [facility] - diastolic [facility] height 2021-07-28 14:10:00 70 [in_i] [facility] weight 2021-07-28 14:10:00 211.8 [lb_av] [facility] temperature 2021-07-28 14:10:00 97.5 [degF] [facility] bmi 2021-07-28 14:10:00 30.39 kg/m2 [facility] oximetry 2021-07-28 14:10:00 93 % [facility] respiratory rate 2021-07-28 14:10:00 16 /min [facility] blood pressure 2021-07-28 14:10:00 134 mm[Hg] Common [facility] - systolic [facility] blood pressure 2021-07-28 14:10:00 63 mm[Hg] [facility] - [facility] height 2021-07-28 13:20:00 70 [in_i] [facility] weight 2021-07-28 13:20:00 211.8 [lb_av] [facility] temperature 2021-07-28 13:20:00 97.5 [degF] [facility] bmi 2021-07-28 13:20:00 30.39 kg/m2 [facility] oximetry 2021-07-28 13:20:00 93 % Common S [facility] respiratory rate 2021-07-28 13:20:00 16 /min [facility] on [facility] blood pressure 2021-07-28 13:20:00 134 mm[Hg] Common [facility] - systolic [facility] blood pressure 2021-07-28 13:20:00 62 mm[Hg] [facility] - diastolic [facility] height 2021-04-28 13:10:00 70 [in_i] [facility] weight 2021-04-28 13:10:00 215.9 [lb_av] [facility] temperature 2021-04-28 13:10:00 97.3 [degF] [facility] bmi 2021-04-28 13:10:00 30.98 kg/m2 [facility] oximetry 2021-04-28 13:10:00 95 % Common [facility] respiratory rate 2021-04-28 13:10:00 17 /min [facility] blood pressure 2021-04-28 13:10:00 121 mm[Hg] Common [facility] - systolic [facility] blood pressure 2021-04-28 13:10:00 60 mm[Hg] Common [facility] - diastolic [facility] height 2021-03-12 09:30:00 70 [in_i] Common [facility] weight 2021-03-12 09:30:00 211.4 [lb_av] Common [facility] temperature 2021-03-12 09:30:00 97.7 [degF] Common [facility] bmi 2021-03-12 09:30:00 30.33 kg/m2 [facility] oximetry 2021-03-12 09:30:00 95 % [facility] respiratory rate 2021-03-12 09:30:00 16 /min [facility] blood pressure 2021-03-12 09:30:00 132 mm[Hg] Common [facility] - systolic [facility] blood pressure 2021-03-12 09:30:00 67 mm[Hg] Common [facility] diastolic [facility] Heart Rate 2022-01-02 21:14:00 [facility] Respitory Rate 2022-01-02 21:14:00 [facility] Systolic (mm Hg) 2022-01-02 21:14:00 [facility] Diastolic (mm Hg) 2022-01-02 21:14:00 [facility] Height 2022-01-02 17:28:00 167.64 cm [facility] BMI Calculated 2022-01-02 17:28:00 [facility] Weight 2022-01-02 17:28:00 [facility] Systolic (mm Hg) 2022-01-02 17:28:00 [facility] Diastolic (mm Hg) 2022-01-02 17:28:00 [facility] Heart Rate 2022-01-02 17:28:00 [facility] Respitory Rate 2022-01-02 17:28:00 [facility] Temperature Oral (F) 2022-01-02 17:28:00 97.5 F [facility] Temperature Oral (F) 2021-12-17 00:00:00 98.0 F [facility] Heart Rate 2021-12-17 00:00:00 [facility] Respitory Rate 2021-12-17 00:00:00 [facility] Systolic (mm Hg) 2021-12-17 00:00:00 [facility] Diastolic (mm Hg) 2021-12-17 00:00:00 [facility] Heart Rate 2021-12-16 21:00:00 [facility] Respitory Rate 2021-12-16 21:00:00 [facility] Systolic (mm Hg) 2021-12-16 21:00:00 [facility] Diastolic (mm Hg) 2021-12-16 21:00:00 [facility] Temperature Oral (F) 2021-12-16 21:00:00 98.0 F [facility] Heart Rate 2021-12-16 20:20:00 [facility] Respitory Rate 2021-12-16 20:20:00 [facility] Systolic (mm Hg) 2021-12-16 20:20:00 [facility] Diastolic (mm Hg) 2021-12-16 20:20:00 [facility] Temperature Oral (F) 2021-12-16 20:20:00 97.3 F [facility] Heart Rate 2021-12-15 08:58:06 [facility] Systolic (mm Hg) 2021-12-15 08:58:01 [facility] Diastolic (mm Hg) 2021-12-15 08:58:01 [facility] Heart Rate 2021-12-15 08:58:01 [facility] Temperature Oral (F) 2021-12-15 08:57:27 98.2 F [facility] Temperature Oral (F) 2021-12-15 05:00:00 97.5 F [facility] Heart Rate 2021-12-15 05:00:00 [facility] Systolic (mm Hg) 2021-12-15 05:00:00 [facility] Diastolic (mm Hg) 2021-12-15 05:00:00 [facility] Height 2021-12-15 03:03:00 177.8 cm [facility] Weight 2021-12-15 03:03:00 [facility] BMI Calculated 2021-12-15 03:03:00 [facility] Temperature Oral (F) 2021-12-15 01:20:46 97.4 F [facility] Systolic (mm Hg) 2021-12-15 01:20:42 [facility] Diastolic (mm Hg) 2021-12-15 01:20:42 [facility]itory Rate 2021-12-15 00:45:00 [facility] Height 2021-12-15 00:13:00 172.72 cm [facility] BMI Calculated 2021-12-15 00:13:00 [facility] Weight 2021-12-15 00:13:00 [facility] Respitory Rate 2021-12-14 23:56:00 [facility] Height 2021-12-14 23:34:00 172.72 cm [facility] Weight 2021-12-14 23:34:00 [facility] Respitory Rate 2021-12-14 23:18:00 [facility] BMI Calculated 2021-12-14 19:29:00 [facility] Temperature Oral (F) 2021-12-04 14:04:00 97.9 F [facility] Heart Rate 2021-12-04 14:04:00 [facility] Respitory Rate 2021-12-04 14:04:00 [facility] Systolic (mm Hg) 2021-12-04 14:04:00 [facility] Diastolic (mm Hg) 2021-12-04 14:04:00 [facility] Temperature Oral (F) 2021-12-04 12:30:00 97.9 F [facility] Heart Rate 2021-12-04 12:30:00 [facility] Respitory Rate 2021-12-04 12:30:00 [facility] Systolic (mm Hg) 2021-12-04 12:30:00 [facility] Diastolic (mm Hg) 2021-12-04 12:30:00 [facility] Respitory Rate 2021-12-04 11:45:00 [facility] Heart Rate 2021-12-04 11:45:00 [facility] Temperature Oral (F) 2021-12-04 11:45:00 98.4 F [facility] Systolic (mm Hg) 2021-12-04 04:57:00 [facility] Diastolic (mm Hg) 2021-12-04 04:57:00 [facility] Weight 2021-12-03 23:22:00 [facility] Respitory Rate 2021-11-27 00:01:00 [facility] Heart Rate 2021-11-26 21:50:00 [facility] Respitory Rate 2021-11-26 21:50:00 [facility] Systolic (mm Hg) 2021-11-26 21:50:00 [facility] Diastolic (mm Hg) 2021-11-26 21:50:00 [facility] Temperature Oral (F) 2021-11-26 18:40:00 98.0 F [facility] Heart Rate 2021-11-26 18:40:00 [facility] Respitory Rate 2021-11-26 18:40:00 [facility] Systolic (mm Hg) 2021-11-26 18:40:00 [facility] Diastolic (mm Hg) 2021-11-26 18:40:00 [facility] Heart Rate 2021-11-26 16:41:35 [facility] Systolic (mm Hg) 2021-11-26 16:41:27 [facility] Diastolic (mm Hg) 2021-11-26 16:41:27 [facility] Temperature Oral (F) 2021-11-26 16:40:28 98.4 F [facility] Temperature Oral (F) 2021-11-26 13:00:17 98.3 F [facility] Height 2021-11-25 03:24:00 177.8 cm [facility] BMI Calculated 2021-11-25 03:24:00 [facility] Weight 2021-11-25 03:24:00 [facility] Procedures Procedure Date / Time Performing Clinician Source Performed CT ABDOMEN PELVIS WO 2022-10-31 14:52:20 Ronnie Ayala [facility] CONTRAST Medical Branch CT THORAX WO CONTRAST 2022-10-31 14:52:20 Ronnie Ayala [facility] [place] LIPASE 2022-10-31 14:22:00 Ronnie Ayala [facility] COMP. METABOLIC PANEL 2022-10-31 14:22:00 Ronnie Ayala [facility] ([id number]) Medical Branch CBC WITH DIFF 2022-10-31 14:22:00 Ronnie Ayala [facility] NOTICE OF PRIVACY 2022-10-31 13:54:24 Doctor Unassigned, [facility] PRACTICES [place] [facility] CONSENT/REFUSAL FOR 2022-10-31 13:53:28 Doctor Unassigned, [facility] DIAGNOSIS AND TREATMENT [place] [facility] POCT GLUCOSE 2022-10-15 16:16:[address] [facility] (AUTOMATED) [facility] XR CHEST 1 VW 2022-10-15 14:27:00 [facility] POCT GLUCOSE 2022-10-15 12:24:00 [facility] (AUTOMATED) [facility] BASIC METABOLIC PANEL 2022-10-15 09:26:00 Marianna Barbour [facility] (NA, K, CL, CO2, [facility] [place] GLUCOSE, BUN, CREATININE, CA) CBC WITH DIFF 2022-10-15 09:26:00 Marianna Barbour [facility] PREPARE PACKED RBC 2022-10-15 05:15:09 [facility] POCT GLUCOSE 2022-10-15 01:54:00 [facility] (AUTOMATED) [facility] XR CHEST 1 VW 2022-10-15 01:09:38 Abdoul [facility] IR THORACENTESIS WITH 2022-10-14 23:00:51 Marianna Brabour [facility] IMAGING Medical Branch GLUCOSE BODY FLUID 2022-10-14 22:53:[address] [facility] T.PROTEIN BODY FLUID 2022-10-14 22:53:00 Marianna Barbour [facility] BODY FLUID DIRECT COUNT 2022-10-14 22:53:00 Marianna Barbour [facility] BODY FLUID 2022-10-14 22:53:00 Marianna Barbour [facility] CULTURE(AEROBIC/ANAEROB [facility] [place] IC) [facility] TOTAL BODY FLUID 2022-10-14 22:53:00 Marianna Barbour [facility] XR CHEST 1 VW 2022-10-14 22:38:00 Josi Schreiber [facility] POCT GLUCOSE 2022-10-14 21:38:00 [facility] (AUTOMATED) [facility] HEPATITIS B SURFACE 2022-10-14 19:06:00 Anita Sanchez [facility] ANTIBODY [facility] HEPATITIS B SURFACE 2022-10-14 19:06:00 Anita Sanchez [facility] ANTIGEN [facility] POCT GLUCOSE 2022-10-14 16:36:00 Mine Mosqueda [facility] (AUTOMATED) [facility] POCT GLUCOSE 2022-10-14 12:50:00 Mine Mosqueda [facility] (AUTOMATED) [facility] PHOSPHORUS 2022-10-14 08:27:00 Mine Mosqueda [facility] MAGNESIUM 2022-10-14 08:27:00 Mine Mosqueda [facility] [facility] BASIC METABOLIC PANEL 2022-10-14 08:27:00 Mine Mosqueda [facility] (NA, K, CL, CO2, Medical Branch GLUCOSE, BUN, CREATININE, CA) VANCOMYCIN TROUGH 2022-10-14 08:27:00 Dahiana Albert [facility] CBC WITH DIFF 2022-10-14 08:27:00 Mine Mosqueda [facility] DISCLOSURE AND CONSENT, 2022-10-14 05:01:00 Doctor Unassigned, [facility] MEDICAL AND SURGICAL [place] [facility] PROCEDURES POCT GLUCOSE 2022-10-14 03:13:00 Mine Mosqueda [facility] (AUTOMATED) [facility] [place] POCT GLUCOSE 2022-10-13 21:41:00 Mine Mosqueda [facility] (AUTOMATED) [facility] POCT GLUCOSE 2022-10-13 16:25:00 Mine Mosqueda [facility] (AUTOMATED) [facility] POCT GLUCOSE 2022-10-13 12:34:00 Dominic [facility] (AUTOMATED) [facility] BASIC METABOLIC PANEL 2022-10-13 09:16:00 Mine Mosqueda [facility] (NA, K, CL, CO2, Medical Branch GLUCOSE, BUN, CREATININE, CA) CBC WITH DIFF 2022-10-13 09:16:00 Dominic [facility] POCT GLUCOSE 2022-10-13 01:24:00 [facility] (AUTOMATED) [facility] POCT GLUCOSE 2022-10-12 21:23:00 [facility] (AUTOMATED) [facility] TRANSFUSE PACKED RBC 2022-10-12 18:39:00 Luis A [facility] PREPARE PACKED RBC 2022-10-12 18:29:53 Luis A [facility] POCT GLUCOSE 2022-10-12 16:47:00 Mine Mosqueda [facility] (AUTOMATED) [facility] BLOOD CULTURE SCREEN 2022-10-12 15:52:00 Luis A [facility] BLOOD CULTURE SCREEN 2022-10-12 15:40:00 Luis A [facility] XR CHEST 1 VW 2022-10-12 14:31:35 Dominic [facility] POCT GLUCOSE 2022-10-12 12:44:00 Mine Mosqueda [facility] (AUTOMATED) [facility] PHOSPHORUS 2022-10-12 09:58:00 Mine Mosqueda [facility] MAGNESIUM 2022-10-12 09:58:00 Dominic [facility] TROPONIN I 2022-10-12 09:58:00 Tim Alejandro [facility] BASIC METABOLIC PANEL 2022-10-12 09:58:00 Mine Mosqueda [facility] (NA, K, CL, CO2, Medical Branch GLUCOSE, BUN, CREATININE, CA) LIPID PANEL 2022-10-12 09:58:00 Tim Alejandro [facility] ([id number])(TOTAL Medical Branch CHOLESTEROL, TRIGLYCERIDES, HDL) CBC WITH DIFF 2022-10-12 09:58:00 [facility]ic [facility] N-TERMINAL PRO-BNP 2022-10-12 09:58:00 Tim Alejandro [facility] POCT GLUCOSE 2022-10-12 06:42:00 [facility] (AUTOMATED) [facility] TROPONIN I 2022-10-12 03:10:00 Luis A [facility] POCT GLUCOSE 2022-10-12 01:19:00 [facility] (AUTOMATED) [facility] OCCULT (GUAIAC) BLOOD 2022-10-11 21:58:00 Mine Mosqueda [facility] POCT GLUCOSE 2022-10-11 21:19:00 [facility] (AUTOMATED) [facility] IRON 2022-10-11 18:20:00 Dominic [facility] TOTAL IRON BINDING 2022-10-11 18:20:00 Dominic [facility] CAPACITY [facility] TROPONIN I 2022-10-11 18:20:00 Luis A [facility] RETICULOCYTES AUTOMATED 2022-10-11 18:20:00 Dominic [facility] PROCALCITONIN 2022-10-11 18:20:00 Dominic [facility] POCT GLUCOSE 2022-10-11 16:58:00 [facility] (AUTOMATED) [facility] POCT GLUCOSE 2022-10-11 16:05:00 [facility] (AUTOMATED) [facility] ABORH CONFIRMATION (LAB 2022-10-11 15:23:00 Luis A [facility] ONLY) [facility] [place] TROPONIN I 2022-10-11 15:08:00 Luis A [facility] POCT GLUCOSE 2022-10-11 14:22:00 [facility] (AUTOMATED) [facility] TRANSTHORACIC ECHO 2022-10-11 13:32:00 Luis A [facility] (TTE) COMPLETE [facility] [place] POCT GLUCOSE 2022-10-11 13:04:00 [facility] (AUTOMATED) [facility] POCT GLUCOSE 2022-10-11 12:04:00 [facility] (AUTOMATED) [facility] POCT GLUCOSE 2022-10-11 11:21:00 Mine Mosqueda [facility] (AUTOMATED) [facility] HB ABO GROUPING 2022-10-11 11:20:00 Luis A [facility] PHOSPHORUS 2022-10-11 09:41:00 Luis A [facility] MAGNESIUM 2022-10-11 09:41:00 Luis A [facility] TROPONIN I 2022-10-11 09:41:00 Luis A [facility] BASIC METABOLIC PANEL 2022-10-11 09:41:00 Luis A [facility] (NA, K, CL, CO2, Medical Branch GLUCOSE, BUN, CREATININE, CA) CBC WITHOUT DIFF 2022-10-11 09:41:00 Luis A [facility] POCT GLUCOSE 2022-10-11 09:41:00 [facility] (AUTOMATED) [facility] N-TERMINAL PRO-BNP 2022-10-11 09:41:00 Luis A [facility] POCT GLUCOSE 2022-10-11 08:43:00 [facility] (AUTOMATED) [facility] POCT GLUCOSE 2022-10-11 07:36:00 [facility] (AUTOMATED) [facility] POCT GLUCOSE 2022-10-11 06:18:00 [facility] (AUTOMATED) [facility] POCT GLUCOSE 2022-10-11 05:52:00 [facility] (AUTOMATED) [facility] POCT GLUCOSE 2022-10-11 04:24:00 [facility] (AUTOMATED) [facility] POCT GLUCOSE 2022-10-11 03:33:00 [facility] (AUTOMATED) Medical [facility] POCT GLUCOSE 2022-10-11 02:08:00 [facility] (AUTOMATED) [facility] POCT GLUCOSE 2022-10-11 01:08:00 [facility] (AUTOMATED) Medical Branch MRSA / MSSA SCREEN BY 2022-10-11 00:16:00 Mine Mosqueda [facility] PCR, MALIKES [facility] CRITICAL CARE 2022-10-10 23:43:37 Fabian Fernandes [facility] POCT GLUCOSE 2022-10-10 23:20:00 Mine Mosqueda [facility] (AUTOMATED) [facility] POCT GLUCOSE 2022-10-10 21:42:00 Fabian Fernandes [facility] (AUTOMATED) [facility] POCT GLUCOSE 2022-10-10 21:25:00 Fabian Fernandes [facility] (AUTOMATED) [facility] HB ECG ROUTINE & RHYTHM 2022-10-10 21:20:02 Fabian Fernandes [facility] STRIP [facility] AC PANEL 21 + LACTIC 2022-10-10 20:50:00 Fabian Fernandes [facility] ACID [facility] POCT GLUCOSE 2022-10-10 20:32:00 Dom Fabian [facility] (AUTOMATED) [facility] CT THORAX WO CONTRAST 2022-10-10 20:31:25 Fabian Fernandes [facility] CT ABDOMEN PELVIS WO 2022-10-10 20:30:49 Fabian Fernandes [facility] CONTRAST [facility] CT HEAD WO CONTRAST 2022-10-10 20:30:49 Fabian Fernandes [facility] POCT GLUCOSE 2022-10-10 19:43:00 Fabian Fernandes [facility] (AUTOMATED) [facility] XR CHEST 1 VW 2022-10-10 19:40:00 Fabian Fernandes [facility] BLOOD CULTURE SCREEN 2022-10-10 19:38:00 [facility]ian [facility] BLOOD CULTURE WORKUP 2022-10-10 19:38:00 Fabian [facility]es [facility] GRAM POSITIVE BLOOD 2022-10-10 19:38:00 Fabian Fernandes [facility] PATHOGENS DNA Medical Branch PROBE-AEROBIC ASSIGNMENT OF BENEFITS 2022-10-10 19:11:20 Doctor Unassigned, [facility] [place] [facility] CONSENT/REFUSAL FOR 2022-10-10 19:10:59 Doctor Unassigned, [facility] DIAGNOSIS AND TREATMENT [place] [facility] [place] TROPONIN I 2022-10-10 19:08:00 Fabian Fernandes [facility] COMP. METABOLIC PANEL 2022-10-10 19:08:00 Fabian Fernandes [facility] ([id number]) Medical Branch CBC WITH DIFF 2022-10-10 19:08:00 Fernandes [facility] GLYCOSYLATED HEMOGLOBIN 2022-10-10 19:08:00 Mine Mosqueda [facility] (A1C) Medical Branch N-TERMINAL PRO-BNP 2022-10-10 19:08:[address] [facility] POCT GLUCOSE 2022-10-10 18:58:00 [facility] [id number] 2021-10-18 00:00:00 [facility] En[facility] Start End Encounter Admission Attending Care Care Encounter Source Date/Time Date/Time Type Type Clinicians Facility Department ID 2022-05-20 Outpatient [facility], STLMLC STLMLC [id number] Common 08:24:01 [facility] 2022-05-15 Outpatient [facility], STLMLC STLMLC [id number] Common 08:53:00 [facility] [address] [facility] 2022-05-11 Outpatient [facility], STLMLC STLMLC [id number] Common 14:49:00 Naveed 18784 [facility] 2022-05-08 Outpatient [facility], STLMLC STLMLC [id number] Common 10:15:01 Naveed [facility] 2022-05-07 Outpatient [facility], STLMLC STLMLC [id number] Common 11:53:00 [facility] [address] [facility] 2022-02-18 Outpatient [facility], STLMLC STLMLC [id number] Common 12:05:01 Naveed [facility] 2022-01-01 Outpatient [facility], STLMLC STLMLC [id number] Common 10:24:01 Naveed [facility] 2021-12-29 Outpatient [facility], STLMLC STLMLC [id number] Common 08:34:00 Naveed [facility] 2021-12-16 Outpatient [facility] [id number] [place] 14:42:21 [id number] [facility] 2021-11-19 Outpatient [facility], STLMLC STLMLC [id number] Common 08:42:01 Naveed [facility] 2021-11-03 Outpatient [facility], STLMLC STLMLC [id number] Common 10:33:01 Naveed 80077 [facility] 2021-10-15 Outpatient 3 [id number] ENCPL REF [facility] 08:19:25 [facility] [place] [facility] 2021-10-14 Outpatient 3 [id number] ENCPL REF [id number] [facility] 11:59:03 [facility] [place] 2021-06-25 Outpatient [facility], STLMLC STLMLC [id number] Common 14:22:06 Naveed 79457 [facility] 2021-06-25 Outpatient [facility], STLMLC STLMLC [id number] Common 14:13:51 Naveed 60652 [facility] 2021-06-25 Outpatient [facility], STLMLC STLMLC [id number] Common 13:38:12 Naveed 06372 [facility] 2021-06-25 Outpatient [facility], STLMLC STLMLC [id number] Common 12:43:29 Naveed 857[address] [facility] 2021-06-25 Outpatient [facility], STLMLC STLMLC [id number] Common 12:42:27 Naveed 916[address] [facility] 2021-06-25 Outpatient [facility], STLMLC STLMLC [id number] Common 12:31:12 Naveed 11981 [facility] 2021-06-25 Outpatient [facility], STLMLC STLMLC [id number] Common 12:31:03 Naveed 68161 [facility] 2021-06-25 Outpatient [facility], STLMLC STLMLC [id number] Common 12:30:21 Naveed 21184 [facility] 2021-06-25 Outpatient [facility], STLMLC STLMLC [id number] Common 11:00:43 Naveed 24147 [facility] 2022-10-31 2022-10-31 [id number] Univers 09:00:00 12:40:00 RONNIE ity [facility] 2022-10-31 2022-10-31 [facility] [id number] Univers 09:00:00 12:40:00 Ronnie SUBRAMANIANSADE [id number] i ty of NATASHA [id number] [facility] [id number] [facility] 084 Branch 2022-10-16 2022-10-16 Transition SHAJI [place] [id number] Univers 00:00:00 00:00:00 of Care Ubaldo Avendano TORI [id number] ity of MAGGIE [id number] [facility] [id number] [facility] 403 Branch 2022-10-10 2022-10-15 Inpatient X [facility] [id number] Univers 13:54:00 14:40:00 [facility]22-10-10 2022-10-15 Hospital Fabian Fernandes [facility] [id number] Univers 13:54:00 14:40:00 Encounter Mine Mosqueda [id number] ity JoeychelsiPatrickloraine POWELLNATHALIA [id number] [facility] [id number] [place] [id number] Branch 2022-07-03 2022-07-03 (TEL) STLMLC STLMLC [id number] Co mmon 00:00:00 00:00:00 [facility] 2022-06-08 2022-06-08 (TEL) STLMLC STLMLC [id number] Co mmon 00:00:00 00:00:00 [facility] 2022-05-06 2022-05-06 (TEL) STLMLC STLMLC [id number] Co mmon 00:00:00 00:00:00 [facility] 2022-04-03 2022-04-03 (TEL) STLMLC STLMLC [id number] Co mmon 00:00:00 00:00:00 Spirit [facility] 2022-02-17 2022-02-17 (TEL) STLMLC STLMLC [id number] Co mmon 00:00:00 00:00:00 [facility] 2022-02-17 2022-02-17 OFFICE STLMLC STLMLC [id number] Co mmon 00:00:00 00:00:00 VISIT Spirit ESTAB PT - CHI LEVEL [address] [facility] 2022-01-06 2022-01-06 OFFICE STLMLC STLMLC [id number] Co mmon 00:00:00 00:00:00 VISIT Spirit ESTAB PT - [facility]I LEVEL 4 [facility] 2022-01-02 2022-01-02 [facility] [id number] Memoria 17:12:00 21:33:00 latrice Celeste [address] [place] [address] 2022-01-02 2022-01-02 [facility] [id number] Memoria 17:12:00 21:33:00 latrice Celeste 03 [facility] 2022-01-02 2022-01-02 Emergency E LONG, MHBL MHBL [id number] MHBL 12:12:00 16:33:00 CAREY 2022-01-02 2022-01-02 Outpatient Long, MHPL MHPL [id number] 12:12:00 16:33:00 Carey R 03 2022-01-01 2022-01-01 (TEL) STLMLC STLMLC [id number] Co mmon 00:00:00 00:00:00 [facility] 2021-12-31 2021-12-31 (TEL) STLMLC STLMLC [id number] Co mmon 00:00:00 00:00:00 [facility] 2021-12-14 2021-12-17 [facility] [id number] Memoria 19:19:49 03:14:00 latrice Celeste [address] [place] [address] 2021-12-14 2021-12-17 [facility] [id number] Memoria 19:19:49 03:14:00 latrice Celeste [address] [place] [address] 2021-12-14 2021-12-16 Inpatient E SAJJA, MHBL MED [id number] MHBL 18:26:00 22:14:00 ZACHARY 2021-12-14 2021-12-16 Outpatient Sajja, MHPL MHPL [id number] 14:19:49 22:14:00 Zachary 2021-12-14 2021-12-14 Outpatient Ajibade, MHPL MHPL [id number] 14:19:49 14:19:49 Monse 02 Akinwale 2021-12-03 2021-12-04 [facility] [id number] Memoria 23:19:26 14:53:00 r Garfield [facility] 2021-12-03 2021-12-04 [facility] [id number] Memoria 23:19:26 14:53:[address] 2021-12-03 2021-12-04 Outpatient [place] [id number] 18:19:26 09:53:00 Pepper 01 [place] 2021-12-03 2021-12-04 Emergency E FADOWOLE, MHBL BL [id number] MHBL 18:19:00 09:53:00 PEPPER 2021-12-01 2021-12-01 Outpatient COH COH PIJFJKR ZIB COH 00:00:00 00:00:00 [id number] 2021-11-25 2021-11-27 [facility] [id number] Memoria 03:23:10 00:12:00 n r Booker 00 [facility] 2021-11-25 2021-11-27 [facility] [id number] Memoria 03:23:10 00:12:00 n r Booker [facility] 2021-11-25 2021-11-26 Outpatient E AJIBADE, MHBL MED [id number] MHBL 10:37:00 19:12:00 MONSE 2021-11-24 2021-11-26 Outpatient Ajdomenicode, MHPL PL [id number] 22:23:10 19:12:00 Monse 00 Akinwale 2021-11-24 2021-11-26 Outpatient Brook, MHPL MHPL [id number] 22:23:10 19:12:00 Monse [facility] 2021-11-24 2021-11-24 (TEL) STLMLC STLMLC [id number] Co mmon 00:00:00 00:00:00 [facility] 2021-10-16 2021-11-03 Inpatient 3 NATHANIEL, ENCPL GILDA [id number] [facility] 23:26:00 21:40:00 CHILANGO 0519 [facility] [place] 2021-11-03 2021-11-03 OFFICE STLMLC STLMLC [id number] Co mmon 00:00:00 00:00:00 VISIT NEW [facility] it PT LEVEL 4 - [facility] 2021-10-17 2021-10-17 (TEL) STLMLC STLMLC [id number] Co mmon 00:00:00 00:00:00 [facility] 2021-08-12 2021-08-12 (TEL) STLMLC STLMLC [id number] Co mmon 00:00:00 00:00:[address] [facility] 2021-07-28 2021-07-28 OFFICE STLMLC STLMLC [id number] Co mmon 00:00:00 00:00:00 VISIT Spirit ESTAB PT - [facility] LEVEL 4 [facility] 2021-07-28 2021-07-28 SUB ANNUAL STLMLC STLMLC [id number] Common 00:00:00 00:00:00 MCR Spirit WELLNESS - CHI VISIT [facility] 2021-06-12 2021-06-12 (TEL) STLMLC STLMLC [id number] Co mmon 00:00:00 00:00:00 [facility] 2021-05-21 2021-05-21 (TEL) STLMLC STLMLC [id number] Co mmon 00:00:00 00:00:00 [facility] 2021-04-28 2021-04-28 OFFICE STLMLC STLMLC [id number] Co mmon 00:00:00 00:00:00 VISIT [facility] ESTAB PT - [facility]I LEVEL 4 [facility] 2021-03-26 2021-03-26 (TEL) STLMLC STLMLC [id number] Co mmon 00:00:00 00:00:00 [facility] 2021-03-12 2021-03-12 OFFICE STLMLC STLMLC [id number] Co mmon 00:00:00 00:00:00 VISIT [facility] LEVEL 4 [facility] 2021-02-10 2021-02-10 Outpatient STLMLC STLMLC [id number] Common 00:00:00 00:00:00 [facility] 2021-01-31 2021-01-31 Outpatient STLMLC STLMLC [id number] Common 00:00:00 00:00:00 [facility] 2021-01-13 2021-01-13 Outpatient STLMLC STLMLC [id number] Common 00:00:00 00:00:00 [facility] 2021-01-08 2021-01-08 Outpatient STLMLC STLMLC [id number] Common 00:00:00 00:00:00 [facility] 2020-12-31 2020-12-31 Outpatient STLMLC STLMLC [id number] Common 00:00:00 00:00:00 [facility] 2020-12-11 2020-12-11 Outpatient STLMLC STLMLC [id number] Common 00:00:00 00:00:00 [facility] 2020-08-19 2020-08-19 Outpatient STLMLC STLMLC [id number] Common 00:00:00 00:00:00 [facility] 2020-07-19 2020-07-19 Outpatient STLMLC STLMLC [id number] Common 00:00:00 00:00:00 [facility] 2020-07-15 2020-07-15 Outpatient STLMLC STLMLC [id number] Common 00:00:00 00:00:00 [facility] 2020-06-14 2020-06-14 Outpatient STLMLC STLMLC [id number] Common 00:00:00 00:00:00 [facility] 2020-06-05 2020-06-05 Outpatient STLMLC STLMLC [id number] Common 00:00:00 00:00:00 [facility] 2020-04-23 2020-04-23 Outpatient STLMLC STLMLC [id number] Common 00:00:00 00:00:00 [facility] 2020-04-22 2020-04-22 Outpatient STLMLC STLMLC [id number] Common 00:00:00 00:00:00 [facility] 2020-04-17 2020-04-17 Outpatient STLMLC STLMLC [id number] Common 00:00:00 00:00:00 [facility] 2020-01-15 2020-01-15 [facility] [id number] Common 10:45:00 10:45:[address] [facility] 2019-10-16 2019-10-16 Out[facility] [id number] Common 13:00:00 13:00:[address] [facility] 2019-07-17 2019-07-17 Out[facility] [id number] Common 13:45:00 13:45:[address] [facility] 2019-06-14 2019-06-14 Outpatient [facility] [id number] Common 11:45:00 11:45:[address] [facility] 2019-06-07 2019-06-07 Out[facility] [id number] Common 11:57:00 11:57:[address] [facility] 2019-05-17 2019-05-17 Outpatient [facility] [id number] Common 11:30:00 11:30:[address] [facility] 2019-04-24 2019-04-24 [facility] [id number] Common 14:52:00 14:52:[address] [facility] 2019-04-19 2019-04-19 [facility] [id number] Common 14:45:00 14:45:[address] [facility] 2019-04-06 2019-04-06 Outpatient [facility] Cornel[place] [id number] Common 08:35:00 08:35:[address] [facility] 2019-04-04 2019-04-04 [facility] [id number] Common 08:34:00 08:34:[address] [facility] 2019-03-08 2019-03-08 Outpatient Cornelio Grimest 27 [id number] Common 10:57:00 10:57:[address] [facility] 2019-02-20 2019-02-20 Outpatient Cornelio Valentin 27 [id number] Common 14:00:00 14:00:[address] [facility] Results Test Description Test Time Test Comments Results Result Comments Source COMP. METABOLIC PANEL (45738) 2022-10-31 15:25:34 Test Item Value Reference Range Interpretation Comme nts NA (test code = 7130475904) 136 mmol/L 135-145 K (test code = 3223119672) 4.7 mmol/L 3.5-5.0 CL (test code = 2704234890) 96 mmol/L 98-108 L CO2 TOTAL (test code = 2261137518) 31 mmol/L 23-31 AGAP (test code = 4851505509) 9 2-16 BUN (test code = 7679705801) 26 mg/dL 7-23 H GLUCOSE (test code = 5503411399) 190 mg/dL 70-110 H CREATININE (test code = 2.56 mg/dL 0.60-1.25 H 9368117676) TOTAL BILI (test code = 0.9 mg/dL 0.1-1.3 3925909396) CALCIUM (test code = 1691672713) 9.6 mg/dL 8.6-10.6 T PROTEIN (test code = 0385597312) 6.4 g/dL 6.3-8.2 ALBUMIN (test code = 4693333408) 3.5 g/dL 3.5-5.0 ALK PHOS (test code = 3601778088) 307 U/L 34-122 H ALTv (test code = 1742-6) 27 U/L 5-50 AST(SGOT) (test code = 5784864630) 28 U/L 13-40 eGFR (test code = 8835909367) 24.5 mL/min/1.73m2 MALIK (test code = MALIK) Association of Glomerular Filtration Rate (GFR) and Staging of Kidney Disease* + +-------- + ------+| GFR (mL/min/1.73 m2) ?| With Kidney Damage ?| ?Without Kidney Damage+ +-- + +| ?>90 ?| ?Stage one ?| ? Normal ?+ +------- + -------+| ?60-89 ?| ?Stage two ?| ? Decreased GFR ? + +-------- + ------+| ?30-59 ?| ?Stage three ?| ? Stage three ? + +-------- + ------+| ?15-29 ?| ?Stage four ? | ? Stage four ?+ +------- + -------+| ?<15 (or dialysis) ? ?| ?Stage five ? | ? Stage five ?+ +------- + -------+ *Each stage assumes the associated GFR level has been in effect for at least three months. ?Stages 1 to 5, with or without kidney disease, indicate chronic kidney disease. Notes: Determination of stages one and two (with eGFR >59mL/min/1.73 m2) requires estimation of kidney damage for at least three months as defined by structural or functional abnormalities of the kidney, manifested by either:Pathological abnormalities or Markers of kidney damage (including abnormalities in the composition of the blood or urine or abnormalities in imaging tests). Lab Interpretation (test code = Abnormal 19612-7) [facility] Test Item Value Reference Range Interpretation Comments LIPASE (test code = 7703778995) 212 U/L 0-220 Lab Interpretation (test code = Normal 44130-4) [facility] WITH [id number] 15:12:12 Test Item Value Reference Range Interpretation Comments WBC (test code = 4.75 See_Comment [Automated 6690-2) message] The sy stem which generated this result transmitted reference range : 4.20 - 10.70 10*3/?L. The reference range was not used to interpret this result as normal/abnormal . RBC (test code = 1.98 See_Comment L [Automated 789-8) message] The sy stem which generated this result transmitted reference range : 4.26 - 5.52 10*6/?L. The reference range was not used to interpret this result as normal/abnormal . HGB (test code = 5.8 g/dL 12.2-16.4 L 718-7) HCT (test code = 17.3 % 38.4-49.3 L 4544-3) MCV (test code = 87.4 fL 81.7-95.6 787-2) MCH (test code = 29.3 pg 26.1-32.7 785-6) MCHC (test code = 33.5 g/dL 31.2-35.0 786-4) RDW-SD (test code = 45.4 fL 38.5-51.6 03437-5) RDW-CV (test code = 14.3 % 12.1-15.4 788-0) PLT (test code = 191 See_Comment [Automated 777-3) message] The sy stem which generated this result transmitted reference range : 150 - 328 10*3/ ?L. The reference r samantha was not used to interpret this result as normal/abnormal . MPV (test code = 10.1 fL 9.8-13.0 22053-1) NRBC/100 WBC (test 0.0 See_Comment [Automat ed code = 0251372075) message] The system which generated this result transmitted reference range : 0.0 - 10.0 /100 WBCs. The refer ence range was not u sed to interpret th is result as normal/abnormal . NRBC x10^3 (test code See_Comment [Auto mated = [id number]) message] The s ystem which generated this result transmitted reference range : 10*3/?L. The reference range was not used to interpret this result as normal/abnormal . GRAN MAT (NEUT) % 62.8 % (test code = 770-8) IMM GRAN % (test code 0.60 % = 7607742689) LYMPH % (test code = 23.2 % 736-9) MONO % (test code = 10.9 % 5905-5) EOS % (test code = 2.3 % 713-8) BASO % (test code = 0.2 % 706-2) GRAN MAT x10^3(ANC) 2.98 10*3/uL 1.99-6.95 (test code = 7986473303) IMM GRAN x10^3 (test 0.03 10*3/uL 0.00-0.06 code = 3188729530) LYMPH x10^3 (test code 1.10 10*3/uL 1.09-3.23 = 731-0) MONO x10^3 (test code 0.52 10*3/uL 0.36-1.02 = 742-7) EOS x10^3 (test code = 0.11 10*3/uL 0.06-0.53 711-2) BASO x10^3 (test code 0.01-0.09 = 704-7) Lab Interpretation Abnormal (test code = 45543-2) [facility] GLUCOSE (AUTOMATED)2022-10-15 16:18:07 Test Item Value Reference Range Interpretation Comments POCT GLU (test code = 2559724700) 131 mg/dL 70-110 H Lab Interpretation (test code = Abnormal 10570-9) [facility] GLUCOSE (AUTOMATED)2022-10-15 12:27:02 Test Item Value Reference Range Interpretation Comments POCT GLU (test code = 1574741633) 220 mg/dL 70-110 H Lab Interpretation (test code = Abnormal 35570-9) [facility] (in units), 2 Units 2022-10-15 05:15:09 Test Item Value Reference Range Interpretation Comments Cross Match Result Compatible (test code = 4409) ISBT Blood Type Code 6200 (test code = 622492) Unit Blood Type (test A Pos code = 4410) Unit Number (test [id number] code = 4411) Blood Expiration Date & Time (test code = 760995) Status Information Released (test code = 4412) Product Red Blood Cells Identification (test code = 4413) Product Code (test T0317K51 Performed at [facility] code = 4414) Laboratory Services - [facility] Blood [address] [place] [id number] Free: [phone] A No. [id number] [facility] GLUCOSE (AUTOMATED)2022-10-15 01:55:15 Test Item Value Reference Range Interpretation Comments POCT GLU (test code = 5822246862) 152 mg/dL 70-110 H Lab Interpretation (test code = Abnormal 91487-9) [facility] (HBsAb)2022-10-15 00:05:17 Test Item Value Reference Range Interpretation Comments HBsAB (test code = Negative 4271402224) HBsAb 3.80 mIU/mL Semi-Quantitative (test code = 7151774818) MALIK (test code = Interpretation: MALIK) ?Hepatitis B Surface Antibody ? Negative - Patient is considered to be not immune to infection with HBV. ? ? Positive - Anti-HBs detected at greater than or equal to 12 mIU/mL. ?Patient is considered to be immune to infection with HBV. ? [facility] B Surface Antigen (HBsAg)2022-10-14 23:47:58 Test Item Value Reference Range Interpretation Comments HBsAg Semi-Quantitative (test code = 0.09 Negative 5195-3) [facility] GLUCOSE (AUTOMATED)2022-10-14 21:41:48 Test Item Value Reference Range Interpretation Comments POCT GLU (test code = 4150334042) 118 mg/dL 70-110 H Lab Interpretation (test code = Abnormal 36703-8) [facility] GLUCOSE (AUTOMATED)2022-10-14 16:47:29 Test Item Value Reference Range Interpretation Comments POCT GLU (test code = 0900291588) 132 mg/dL 70-110 H Lab Interpretation (test code = Abnormal 71650-3) [facility] [id number] 14:16:04 Test Item Value Reference Range Interpretation Comments Blood Culture-Aerobic Culture positive. No growth AA P revious (test code = 75172-7) See Blood Culture p reliminary Workup for verified result additional was Culture In information. Progress on 10/10/2022 at 19 01 CDTPrevious preliminary verified result was No growth a t 24 hours on 10/11/2022 at 16 01 CDT Blood No organisms No growth Previous Culture-Anaerobic isolated preliminar y (test code = 43514-1) verifi ed result was Culture In Progress on 10/10/2022 at 19 01 CDTPrevious preliminary verified result was No growth a t 24 hours on 10/11/2022 at 16 01 CDTPrevious preliminary verified result was Culture In Progress on 10/12/2022 at 11 51 CDT Lab Interpretation Abnormal (test code = 10602-1) [facility] CULTURE [id number] 14:16:04 Test Item Value Reference Range Interpretation Comments Blood Culture-Aerobic Culture positive. No growth AA P revious (test code = 94388-7) See Blood Culture p reliminary Workup for verified result additional was Culture In information. Progress on 10/10/2022 at 19 01 CDTPrevious preliminary verified result was No growth a t 24 hours on 10/11/2022 at 16 01 CDT Blood No organisms No growth Previous Culture-Anaerobic isolated preliminar y (test code = 75641-6) verifi ed result was Culture In Progress on 10/10/2022 at 19 01 CDTPrevious preliminary verified result was No growth a t 24 hours on 10/11/2022 at 16 01 CDT Lab Interpretation Abnormal (test code = 86725-3) [facility] GLUCOSE (AUTOMATED)2022-10-14 12:54:35 Test Item Value Reference Range Interpretation Comments POCT GLU (test code = 4099593082) 221 mg/dL 70-110 H Lab Interpretation (test code = Abnormal 19105-2) [facility] GLUCOSE (AUTOMATED)2022-10-14 03:16:56 Test Item Value Reference Range Interpretation Comments POCT GLU (test code = 0872924727) 129 mg/dL 70-110 H Lab Interpretation (test code = Abnormal 55269-9) [facility] GLUCOSE (AUTOMATED)2022-10-13 21:44:17 Test Item Value Reference Range Interpretation Comments POCT GLU (test code = 5819074364) 95 mg/dL 70-110 Lab Interpretation (test code = Normal 59767-0) [facility] GLUCOSE (AUTOMATED)2022-10-13 16:27:34 Test Item Value Reference Range Interpretation Comments POCT GLU (test code = 1258807750) 167 mg/dL 70-110 H Lab Interpretation (test code = Abnormal 08187-1) [facility] GLUCOSE (AUTOMATED)2022-10-13 12:36:25 Test Item Value Reference Range Interpretation Comments POCT GLU (test code = 3440369634) 169 mg/dL 70-110 H Lab Interpretation (test code = Abnormal 68680-8) [facility] GLUCOSE (AUTOMATED)2022-10-13 01:25:21 Test Item Value Reference Range Interpretation Comments POCT GLU (test code = 9211675209) 142 mg/dL 70-110 H Lab Interpretation (test code = Abnormal 51501-4) [facility] PATHOGENS DNA [id number] 21:42:17 Test Item Value Reference Range Interpretation Comments Coagulase Negative Positive Negative, See A Staphylococcus (test Comment/Narrative code = 90243-1) MALIK (test code = MALIK) Coagulase negative Staphylococcus (CoNS) detected by DNA probe. ?CoNS often contaminate blood cultures from skin colonization during phlebotomy. ?Preferred management is to repeat blood cultures, and monitor off antibiotics. ?Contamination is suggested by culture growth after 48 hours, or growth in single culture (i.e., one of two sets). ?True bacteremia is suggested by the fever, hypotension, and leukocytosis that are not explained by an alternative infection, or indwelling foreign devices that appear infected (catheters, lines, or prostheses). Consider Infectious Diseases consultation if differentiation of CoNS bacteremia from contamination is uncertain. If clinical context suggests true bacteremia, preferred therapy is vancomycin. Please contact the Antimicrobial Stewardship Program with questions.Pager: ?[phone] Testing included eleven identification and three resistance marker targets. Lab Interpretation Abnormal (test code = 61340-9) [facility] GLUCOSE (AUTOMATED)2022-10-12 21:24:15 Test Item Value Reference Range Interpretation Comments POCT GLU (test code = 0225667955) 124 mg/dL 70-110 H Lab Interpretation (test code = Abnormal 08777-2) [facility] P[facility] RBC (in units), 1 Units 2022-10-12 18:29:53 Test Item Value Reference Range Interpretation Comments Cross Match Result Compatible (test code = 4409) ISBT Blood Type Code 6200 (test code = 513265) Unit Blood Type (test A Pos code = 4410) Unit Number (test [id number] code = 4411) Blood Expiration Date & Time (test code = 713430) Status Information Issued (test code = 4412) Product Red Blood Cells Identification (test code = 4413) Product Code (test X1558S98 Performed at [facility] code = 4414) Laboratory Services - [facility] Blood [address] [place], [place] [id number] Free: [phone] A No. [id number] [facility] GLUCOSE (AUTOMATED)2022-10-12 16:49:16 Test Item Value Reference Range Interpretation Comments POCT GLU (test code = 7825848857) 183 mg/dL 70-110 H Lab Interpretation (test code = Abnormal 46521-1) [facility] [id number] 14:35:54 Test Item Value Reference Range Interpretation Comments NT-proBNP (test code = 05763 pg/mL <=450 H 2042771457) MALIK (test code = MALIK) Biotin has been reported to cause a negative bias, interpret results relative to patient's use of biotin. Lab Interpretation (test Abnormal code = 85052-8) [facility] [id number] 14:31:03 Test Item Value Reference Range Interpretation Comments TROPONIN I (test code = 0.296 ng/mL <=0.034 H 8046605688) MALIK (test code = MALIK) Reference (Normal) Range (defined by the 99th percentile reference limit): <= 0.034 ng/mL Note: Cardiac troponin begins to rise 3-4 hours after the onset of ischemia. Repeat in 4-6 hours if the sample was drawn within 3-4 hours of the onset of the symptom and found normal. Diagnosis of myocardial injury is made with acute changes in cTn concentrations with at least one serial sample above the 99th percentile upper reference limit (URL), taken together with the patient's clinical presentation. Biotin has been reported to cause a negative bias, interpret results relative to patient's use of biotin. Lab Interpretation Abnormal (test code = 31732-3) [facility]man[facility]IP[facility] (86403)(TOTAL CHOLESTEROL, TRIGLYCERIDES, HDL)2022-10-12 14:05:04 Test Item Value Reference Range Interpretation Comments CHOL (test code = 6190517063) 61 mg/dL 120-200 L HDL (test code = 4052662801) 19 mg/dL >=40 L HDLC RATIO (test code = 1694961611) 3.2 <=5.0 TRIG (test code = 2896164603) 82 mg/dL 30-170 LDL CHOL (test code = 31223-0) 26 mg/dL <=160 VLDL (test code = 3171645509) 16 mg/dL 5-60 Lab Interpretation (test code = Abnormal 58207-3) [facility]2022-10-12 12:46:09 Test Item Value Reference Range Interpretation Comments POCT GLU (test code = 9353317430) 139 mg/dL 70-110 H Lab Interpretation (test code = Abnormal 13703-8) [facility] (NA, K, CL, CO2, GLUCOSE, BUN, CREATININE, CA)2022-10-12 11:04:31 Test Item Value Reference Range Interpretation Comments NA (test code = 136 mmol/L 135-145 6700499182) K (test code = 4.9 mmol/L 3.5-5.0 9357219201) CL (test code = 99 mmol/L 98-108 8181184975) CO2 TOTAL (test code = 27 mmol/L 23-31 1917395815) AGAP (test code = 10 2-16 8338966399) BUN (test code = 54 mg/dL 7-23 H 7212715970) GLUCOSE (test code = 136 mg/dL 70-110 H 2027807888) CREATININE (test code = 4.66 mg/dL 0.60-1.25 H 9136585013) CALCIUM (test code = 9.0 mg/dL 8.6-10.6 8746173116) eGFR (test code = 12.3 mL/min/1.73m2 2191757379) MALIK (test code = MALIK) Association of Glomerular Filtration Rate (GFR) and Staging of Kidney Disease* + --+ --+ ------+| GFR (mL/min/1.73 m2) ?| With Kidney Damage ?| ?Without Kidney Damage+ --------+ --------+ +| ?>90 ?| ?Stage one ?| ? Normal ?+ ---+ ---+ -------+| ?60-89 ?| ?Stage two ?| ? Decreased GFR ? + --+ --+ ------+| ?30-59 ?| ?Stage three ?| ? Stage three ? + --+ --+ ------+| ?15-29 ?| ?Stage four ? | ? Stage four ?+ ---+ ---+ -------+| ?<15 (or dialysis) ? ?| ?Stage five ? | ? Stage five ?+ ---+ ---+ -------+ *Each stage assumes the associated GFR level has been in effect for at least three months. ?Stages 1 to 5, with or without kidney disease, indicate chronic kidney disease. Notes: Determination of stages one and two (with eGFR >59mL/min/1.73 m2) requires estimation of kidney damage for at least three months as defined by structural or functional abnormalities of the kidney, manifested by either:Pathological abnormalities or Markers of kidney damage (including abnormalities in the composition of the blood or urine or abnormalities in imaging tests). Lab Interpretation Abnormal (test code = 57411-4) [facility] 11:04:31 Test Item Value Reference Range Interpretation Comments MAGNESIUM (test code = 7589917129) 1.9 mg/dL 1.7-2.4 Lab Interpretation (test code = Normal 46682-6) [facility]23-[facility] 11:04:11 Test Item Value Reference Range Interpretation Comments PHOSPHORUS (test code = 8433720357) 3.8 mg/dL 2.5-5.0 Lab Interpretation (test code = Normal 62946-3) [facility] WITH [id number] 10:44:53 Test Item Value Reference Range Interpretation Comments WBC (test code = 5.14 See_Comment [Automated 6690-2) message] The sy stem which generated this result transmitted reference range : 4.20 - 10.70 10*3/?L. The reference range was not used to interpret this result as normal/abnormal . RBC (test code = 2.26 See_Comment L [Automated 789-8) message] The sy stem which generated this result transmitted reference range : 4.26 - 5.52 10*6/?L. The reference range was not used to interpret this result as normal/abnormal . HGB (test code = 6.4 g/dL 12.2-16.4 L 718-7) HCT (test code = 20.2 % 38.4-49.3 L 4544-3) MCV (test code = 89.4 fL 81.7-95.6 787-2) MCH (test code = 28.3 pg 26.1-32.7 785-6) MCHC (test code = 31.7 g/dL 31.2-35.0 786-4) RDW-SD (test code = 46.5 fL 38.5-51.6 06652-4) RDW-CV (test code = 14.5 % 12.1-15.4 788-0) PLT (test code = 129 See_Comment L [Automated 777-3) message] The sy stem which generated this result transmitted reference range : 150 - 328 10*3/ ?L. The reference r samantha was not used to interpret this result as normal/abnormal . MPV (test code = 9.7 fL 9.8-13.0 L 98352-3) NRBC/100 WBC (test 0.0 See_Comment [Automat ed code = 7396973763) message] The system which generated this result transmitted reference range : 0.0 - 10.0 /100 WBCs. The refer ence range was not u sed to interpret th is result as normal/abnormal . NRBC x10^3 (test code See_Comment [Auto mated = 5587681330) message] The s ystem which generated this result transmitted reference range : 10*3/?L. The reference range was not used to interpret this result as normal/abnormal . GRAN MAT (NEUT) % 70.2 % (test code = 770-8) IMM GRAN % (test code 0.40 % = 4787758886) LYMPH % (test code = 19.3 % 736-9) MONO % (test code = 7.4 % 5905-5) EOS % (test code = 2.3 % 713-8) BASO % (test code = 0.4 % 706-2) GRAN MAT x10^3(ANC) 3.61 10*3/uL 1.99-6.95 (test code = 7252835419) IMM GRAN x10^3 (test 0.00-0.06 code = 2814466218) LYMPH x10^3 (test code 0.99 10*3/uL 1.09-3.23 L = 731-0) MONO x10^3 (test code 0.38 10*3/uL 0.36-1.02 = 742-7) EOS x10^3 (test code = 0.12 10*3/uL 0.06-0.53 711-2) BASO x10^3 (test code 0.01-0.09 = 704-7) Lab Interpretation Abnormal (test code = 05479-1) [facility] GLUCOSE (AUTOMATED)2022-10-12 06:45:05 Test Item Value Reference Range Interpretation Comments POCT GLU (test code = 6154328661) 189 mg/dL 70-110 H Lab Interpretation (test code = Abnormal 29571-3) [facility] GLUCOSE (AUTOMATED)2022-10-12 01:24:37 Test Item Value Reference Range Interpretation Comments POCT GLU (test code = 9295701578) 145 mg/dL 70-110 H Lab Interpretation (test code = Abnormal 77438-5) [facility] GLUCOSE (AUTOMATED)2022-10-11 21:34:09 Test Item Value Reference Range Interpretation Comments POCT GLU (test code = 7836371390) 140 mg/dL 70-110 H Lab Interpretation (test code = Abnormal 99012-5) [facility] GLUCOSE (AUTOMATED)2022-10-11 17:09:13 Test Item Value Reference Range Interpretation Comments POCT GLU (test code = 6639068830) 174 mg/dL 70-110 H Lab Interpretation (test code = Abnormal 41979-6) [facility] GLUCOSE (AUTOMATED)2022-10-11 16:19:41 Test Item Value Reference Range Interpretation Comments POCT GLU (test code = 8336856016) 170 mg/dL 70-110 H Lab Interpretation (test code = Abnormal 62137-2) [facility] GLUCOSE (AUTOMATED)2022-10-11 14:32:59 Test Item Value Reference Range Interpretation Comments POCT GLU (test code = 4129822852) 151 mg/dL 70-110 H Lab Interpretation (test code = Abnormal 44460-9) [facility] GLUCOSE (AUTOMATED)2022-10-11 13:15:13 Test Item Value Reference Range Interpretation Comments POCT GLU (test code = 9827941725) 108 mg/dL 70-110 Lab Interpretation (test code = Normal 87957-4) [facility] GLUCOSE (AUTOMATED)2022-10-11 12:14:37 Test Item Value Reference Range Interpretation Comments POCT GLU (test code = 9977814030) 106 mg/dL 70-110 Lab Interpretation (test code = Normal 03095-0) [facility] GLUCOSE (AUTOMATED)2022-10-11 11:28:53 Test Item Value Reference Range Interpretation Comments POCT GLU (test code = 4800878134) 121 mg/dL 70-110 H Lab Interpretation (test code = Abnormal 37753-3) [facility] GLUCOSE (AUTOMATED)2022-10-11 09:43:44 Test Item Value Reference Range Interpretation Comments POCT GLU (test code = 5157938462) 129 mg/dL 70-110 H Lab Interpretation (test code = Abnormal 63463-3) [facility] GLUCOSE (AUTOMATED)2022-10-11 08:46:38 Test Item Value Reference Range Interpretation Comments POCT GLU (test code = 4036047331) 101 mg/dL 70-110 Lab Interpretation (test code = Normal 45414-2) [facility] GLUCOSE (AUTOMATED)2022-10-11 07:38:35 Test Item Value Reference Range Interpretation Comments POCT GLU (test code = 2947170475) 102 mg/dL 70-110 Lab Interpretation (test code = Normal 66847-1) [facility] GLUCOSE (AUTOMATED)2022-10-11 06:20:36 Test Item Value Reference Range Interpretation Comments POCT GLU (test code = 1210264472) 112 mg/dL 70-110 H Lab Interpretation (test code = Abnormal 20729-4) [facility] GLUCOSE (AUTOMATED)2022-10-11 05:53:46 Test Item Value Reference Range Interpretation Comments POCT GLU (test code = 1629345140) 118 mg/dL 70-110 H Lab Interpretation (test code = Abnormal 71594-5) [facility] GLUCOSE (AUTOMATED)2022-10-11 04:25:32 Test Item Value Reference Range Interpretation Comments POCT GLU (test code = 2233250851) 127 mg/dL 70-110 H Lab Interpretation (test code = Abnormal 59784-3) [facility] GLUCOSE (AUTOMATED)2022-10-11 03:35:04 Test Item Value Reference Range Interpretation Comments POCT GLU (test code = 0342285174) 132 mg/dL 70-110 H Lab Interpretation (test code = Abnormal 64692-7) [facility] GLUCOSE (AUTOMATED)2022-10-11 02:10:18 Test Item Value Reference Range Interpretation Comments POCT GLU (test code = 9484770390) 155 mg/dL 70-110 H Lab Interpretation (test code = Abnormal 10155-3) [facility]GLOB[facility] (A1C)2022-10-11 01:39:22 Test Item Value Reference Range Interpretation Comments HGB A1C (test code = 7.2 % 4.0-5.7 H 4548-4) MALIK (test code = MALIK) Reference RangesNormal: <5.7%Prediabetes: 5.7 - 6.4%Diabetes: > 6.5% Lab Interpretation (test Abnormal code = 18288-0) [facility] GLUCOSE (AUTOMATED)2022-10-11 01:10:41 Test Item Value Reference Range Interpretation Comments POCT GLU (test code = 3896742776) 156 mg/dL 70-110 H Lab Interpretation (test code = Abnormal 65248-6) [facility] GLUCOSE (AUTOMATED)2022-10-10 23:31:02 Test Item Value Reference Range Interpretation Comments POCT GLU (test code = 5259099332) 144 mg/dL 70-110 H Lab Interpretation (test code = Abnormal 57961-2) [facility] GLUCOSE (AUTOMATED)2022-10-10 21:44:27 Test Item Value Reference Range Interpretation Comments POCT GLU (test code = 6541098894) 138 mg/dL 70-110 H Lab Interpretation (test code = Abnormal 65798-4) [facility] GLUCOSE (AUTOMATED)2022-10-10 21:27:07 Test Item Value Reference Range Interpretation Comments POCT GLU (test code = 4109484947) 150 mg/dL 70-110 H Lab Interpretation (test code = Abnormal 79421-4) [facility] + LACTIC [id number] 21:01:36 Test Item Value Reference Range Interpretation Comments PH (test code = 7.31 7.32-7.42 L 2247189495) PCO2 LORENA (test code = 55 See_Comment H [Auto mated 0279169738) message] The sy stem which generated this result transmitted reference range : 41 - 51 mmHg. The reference range was not used to interpret this result as normal/abnormal . PO2 LORENA (test code = 16 See_Comment L [Autom ated 3216413994) message] The sy stem which generated this result transmitted reference range : 25 - 40 mmHg. The reference range was not used to interpret this result as normal/abnormal . HCO3 LORENA (test code = 27 See_Comment [Auto mated 3829291445) message] The sy stem which generated this result transmitted reference range : 24 - 28 mEq/L. The reference range was not used to interpret this result as normal/abnormal . AC VBE(BEAKER) (test 0.6 mEq/L code = 5704336257) THB LORENA (test code = 8.2 g/dL 13.5-18.0 LL 0235247197) %O2HB LORENA (test code = 22.2 % 52.0-63.0 L 9728048331) %COHB LORENA (test code = 0.1 % 0.0-1.5 4444382766) %METHB LORENA (test code = 1.5 % 0.4-1.5 8987386213) VOL%O2 LORENA (test code = 2.6 % 6.0-12.0 L 9453152345) NA (test code = 132 mmol/L 135-145 L 2541945141) K+ (test code = 4.7 mmol/L 3.5-5.0 6627940261) AC CA IONZ (test code = 5.10 mg/dL 4.50-5.30 5216715868) GLUCOSE (test code = 153 mg/dL 70-110 H 2269493428) LACTIC ACID (test code 1.54 mmol/L 0.50-2.20 = 1397784856) Lab Interpretation Abnormal (test code = 11761-8) [facility] 20:33:33 Test Item Value Reference Range Interpretation Comments POCT GLU (test code = 3111486673) 137 mg/dL 70-110 H Lab Interpretation (test code = Abnormal 42059-8) [facility] [id number] 20:24:02 Test Item Value Reference Range Interpretation Comments NT-proBNP (test code = 93711 pg/mL <=450 H 7432991455) MALIK (test code = MALIK) Biotin has been reported to cause a negative bias, interpret results relative to patient's use of biotin. Lab Interpretation (test Abnormal code = 39338-4) [facility]. METABOLIC PANEL (42949)2022-10-10 20:18:35 Test Item Value Reference Range Interpretation Comments NA (test code = 136 mmol/L 135-145 6862418575) K (test code = 4.8 mmol/L 3.5-5.0 4288625498) CL (test code = 94 mmol/L 98-108 L 5285935784) CO2 TOTAL (test code = 33 mmol/L 23-31 H 1411073575) AGAP (test code = 9 2-16 2940329876) BUN (test code = 34 mg/dL 7-23 H 1653918481) GLUCOSE (test code = 62 mg/dL 70-110 L 6161328679) CREATININE (test code = 3.14 mg/dL 0.60-1.25 H 2063201664) TOTAL BILI (test code = 0.9 mg/dL 0.1-1.6 1098656121) CALCIUM (test code = 9.4 mg/dL 8.6-10.6 4673898909) T PROTEIN (test code = 6.6 g/dL 6.3-8.2 8307639488) ALBUMIN (test code = 3.6 g/dL 3.5-5.0 7037106530) ALK PHOS (test code = 334 U/L 34-122 H 3053993943) ALTv (test code = 38 U/L 5-50 1742-6) AST(SGOT) (test code = 38 U/L 13-40 1531646192) eGFR (test code = 19.3 mL/min/1.73m2 8415406574) MALIK (test code = MALIK) Association of Glomerular Filtration Rate (GFR) and Staging of Kidney Disease* + --+ --+ ------+| GFR (mL/min/1.73 m2) ?| With Kidney Damage ?| ?Without Kidney Damage+ --------+ --------+ +| ?>90 ?| ?Stage one ?| ? Normal ?+ ---+ ---+ -------+| ?60-89 ?| ?Stage two ?| ? Decreased GFR ? + --+ --+ ------+| ?30-59 ?| ?Stage three ?| ? Stage three ? + --+ --+ ------+| ?15-29 ?| ?Stage four ? | ? Stage four ?+ ---+ ---+ -------+| ?<15 (or dialysis) ? ?| ?Stage five ? | ? Stage five ?+ ---+ ---+ -------+ *Each stage assumes the associated GFR level has been in effect for at least three months. ?Stages 1 to 5, with or without kidney disease, indicate chronic kidney disease. Notes: Determination of stages one and two (with eGFR >59mL/min/1.73 m2) requires estimation of kidney damage for at least three months as defined by structural or functional abnormalities of the kidney, manifested by either:Pathological abnormalities or Markers of kidney damage (including abnormalities in the composition of the blood or urine or abnormalities in imaging tests). Lab Interpretation Abnormal (test code = 25041-0) [facility] GLUCOSE (AUTOMATED)2022-10-10 19:48:15 Test Item Value Reference Range Interpretation Comments POCT GLU (test code = 2191831148) 50 mg/dL 70-110 LL Lab Interpretation (test code = Abnormal 04976-2) [id number] Test Item Value Reference Range Interpretation Comments TROPONIN I (test code = 0.060 ng/mL <=0.034 H [id number]) MALIK (test code = MALIK) Reference (Normal) Range (defined by the 99th percentile reference limit): <= 0.034 ng/mL Note: Cardiac troponin begins to rise 3-4 hours after the onset of ischemia. Repeat in 4-6 hours if the sample was drawn within 3-4 hours of the onset of the symptom and found normal. Diagnosis of myocardial injury is made with acute changes in cTn concentrations with at least one serial sample above the 99th percentile upper reference limit (URL), taken together with the patient's clinical presentation. Biotin has been reported to cause a negative bias, interpret results relative to patient's use of biotin. Lab Interpretation Abnormal (test code = 70720-7) [facility] WITH [id number] 19:23:50 Test Item Value Reference Range Interpretation Comments WBC (test code = 7.51 See_Comment [Automated 9657-2) message] The sy stem which generated this result transmitted reference range : 4.20 - 10.70 10*3/?L. The reference range was not used to interpret this result as normal/abnormal . RBC (test code = 2.71 See_Comment L [Automated 707-8) message] The sy stem which generated this result transmitted reference range : 4.26 - 5.52 10*6/?L. The reference range was not used to interpret this result as normal/abnormal . HGB (test code = 7.8 g/dL 12.2-16.4 L 718-7) HCT (test code = 24.2 % 38.4-49.3 L 4544-3) MCV (test code = 89.3 fL 81.7-95.6 787-2) MCH (test code = 28.8 pg 26.1-32.7 785-6) MCHC (test code = 32.2 g/dL 31.2-35.0 786-4) RDW-SD (test code = 46.5 fL 38.5-51.6 84863-1) RDW-CV (test code = 14.4 % 12.1-15.4 788-0) PLT (test code = 131 See_Comment L [Automated 777-3) message] The sy stem which generated this result transmitted reference range : 150 - 328 10*3/ ?L. The reference r samantha was not used to interpret this result as normal/abnormal . MPV (test code = 9.2 fL 9.8-13.0 L 14256-7) NRBC/100 WBC (test 0.0 See_Comment [Automat ed code = [id number]) message] The system which generated this result transmitted reference range : 0.0 - 10.0 /100 WBCs. The refer ence range was not u sed to interpret th is result as normal/abnormal . NRBC x10^3 (test code See_Comment [Auto mated = [id number]) message] The s ystem which generated this result transmitted reference range : 10*3/?L. The reference range was not used to interpret this result as normal/abnormal . GRAN MAT (NEUT) % 80.2 % (test code = 770-8) IMM GRAN % (test code 0.50 % = 6918570606) LYMPH % (test code = 9.6 % 736-9) MONO % (test code = 8.8 % 5905-5) EOS % (test code = 0.4 % 713-8) BASO % (test code = 0.5 % 706-2) GRAN MAT x10^3(ANC) 6.02 10*3/uL 1.99-6.95 (test code = 4310100465) IMM GRAN x10^3 (test 0.04 10*3/uL 0.00-0.06 code = 3447064155) LYMPH x10^3 (test code 0.72 10*3/uL 1.09-3.23 L = 731-0) MONO x10^3 (test code 0.66 10*3/uL 0.36-1.02 = 742-7) EOS x10^3 (test code = 0.03 10*3/uL 0.06-0.53 L 711-2) BASO x10^3 (test code 0.04 10*3/uL 0.01-0.09 = 704-7) Lab Interpretation Abnormal (test code = 51936-6) [facility] 18:59:49 Test Item Value Reference Range Interpretation Comments POCT GLU (test code = 9501667791) 80 mg/dL 70-110 Lab Interpretation (test code = Normal 00041-5) [facility] [id number] 18:35:00 Test Item Value Reference Range Interpretation Comments Antibody Scrn (test Negative (01/02/22 1:35 code = Antibody Scrn) PM) [facility] [id number] 18:35:00 Test Item Value Reference Range Interpretation Comments ABO/Rh (test code = ABO/Rh) AB POS [facility] [id number] 18:35:00 Test Item Value Reference Range Interpretation Comments Antibody Scrn (test Negative (01/02/22 1:35 code = Antibody Scrn) PM) [facility] [id number] 18:35:00 Test Item Value Reference Range Interpretation Comments ABO/Rh (test code = ABO/Rh) AB POS [facility] [id number] 18:35:00 Test Item Value Reference Range Interpretation Comments Antibody Scrn (test Negative (01/02/22 1:35 code = Antibody Scrn) PM) [facility] [employer] [facility] [id number] 18:35:00 Test Item Value Reference Range Interpretation Comments ABO/Rh (test code = ABO/Rh) AB POS [facility] [id number] 18:13:00 Test Item Value Reference Range Interpretation Comments HS Troponin I (test code = HS Troponin 156 I) [facility] [employer] [id number] 18:13:00 Test Item Value Reference Range Interpretation Comments Glucose Lvl (test code = Glucose Lvl) 237 70-99 [facility] [employer] [id number] 18:13:00 Test Item Value Reference Range Interpretation Comments BUN (test code = BUN) 46 7-22 [facility] [employer] [id number] 18:13:00 Test Item Value Reference Range Interpretation Comments Creatinine Lvl (test code = Creatinine 5.92 0.50-1.40 Lvl) [facility] [employer] [id number] 18:13:00 Test Item Value Reference Range Interpretation Comments Sodium Lvl (test code = Sodium Lvl) 134 135-145 [facility] [id number] 18:13:00 Test Item Value Reference Range Interpretation Comments Potassium Lvl (test code = Potassium 4.4 3.5-5.1 Lvl) [place] 584952-08-05 18:13:00 Test Item Value Reference Range Interpretation Comments Chloride Lvl (test code = Chloride Lvl) 98 95-109 [facility] [id number] 18:13:00 Test Item Value Reference Range Interpretation Comments CO2 (test code = CO2) 29 24-32 [facility] [id number] 18:13:00 Test Item Value Reference Range Interpretation Comments Calcium Lvl (test code = Calcium Lvl) 9.2 8.5-10.5 [facility] [id number] 18:13:00 Test Item Value Reference Range Interpretation Comments Total Protein (test code = Total 6.6 6.4-8.4 Protein) [facility] [id number] 18:13:00 Test Item Value Reference Range Interpretation Comments Albumin Lvl (test code = Albumin Lvl) 3.1 3.5-5.0 [facility] [id number] 18:13:00 Test Item Value Reference Range Interpretation Comments ALT (test code = ALT) 36 See_Comment [Auto mated message] The system which ge nerated this result transmit swathi reference range : <=65. The reference range was not used to interpr et this result as deny l/abnormal. [facility] [id number] 18:13:00 Test Item Value Reference Range Interpretation Comments AST (test code = AST) 28 See_Comment [Auto mated message] The system which ge nerated this result transmit swathi reference range : <=37. The reference range was not used to interpr et this result as deny l/abnormal. [facility] [id number] 18:13:00 Test Item Value Reference Range Interpretation Comments Alk Phos (test code = Alk Phos) 231 39-136 [facility] [id number] 18:13:00 Test Item Value Reference Range Interpretation Comments Bili Total (test code = Bili Total) 1.0 0.2-1.[address]08-05 18:13:00 Test Item Value Reference Range Interpretation Comments AGAP (test code = AGAP) 11.4 10.0-20.0 [address]08-05 18:13:00 Test Item Value Reference Range Interpretation Comments B/C Ratio (test code = B/C Ratio) 8 1 6-[address]08-05 18:13:00 Test Item Value Reference Range Interpretation Comments Globulin (test code = Globulin) 3.5 2.7-4.[address]08-05 18:13:00 Test Item Value Reference Range Interpretation Comments A/G Ratio (test code = A/G Ratio) 0.9 1 0.7-1.[address]08-05 18:13:00 Test Item Value Reference Range Interpretation Comments eGFR (test code = eGFR) 9 [place] [address]-08-05 18:13:00 Test Item Value Reference Range Interpretation Comments WBC (test code = WBC) 4.8 3.7-10.[address]08-05 18:13:00 Test Item Value Reference Range Interpretation Comments RBC (test code = RBC) 1.93 4.70-6.[address]08-05 18:13:00 Test Item Value Reference Range Interpretation Comments Hgb (test code = Hgb) 7.2 14.0-18.0 [address]08-05 18:13:00 Test Item Value Reference Range Interpretation Comments Hct (test code = Hct) 21.2 42.0-54.0 [address]08-05 18:13:00 Test Item Value Reference Range Interpretation Comments MCV (test code = MCV) 110.1 80.0-94.0 [address]08-05 18:13:00 Test Item Value Reference Range Interpretation Comments MCH (test code = MCH) 37.1 pg 27.0-31.0 [place] [address]-08-05 18:13:00 Test Item Value Reference Range Interpretation Comments MCHC (test code = MCHC) 33.7 32.0-36.0 [place] [address]-08-05 18:13:00 Test Item Value Reference Range Interpretation Comments RDW (test code = RDW) 25.8 11.5-14.5 [place] [address]-08-05 18:13:00 Test Item Value Reference Range Interpretation Comments Platelet (test code = Platelet) 216 133-450 [place] 482272-08-05 18:13:00 Test Item Value Reference Range Interpretation Comments MPV (test code = MPV) 8.2 7.4-10.4 [place] [address]-08-05 18:13:00 Test Item Value Reference Range Interpretation Comments PT (test code = PT) 16.9 s 12.0-14.7 [place] [address]-08-05 18:13:00 Test Item Value Reference Range Interpretation Comments INR (test code = INR) 1.39 1 0.85-1.17 [place] [address]-08-05 18:13:00 Test Item Value Reference Range Interpretation Comments PTT (test code = PTT) 35.0 s 22.9-35.8 [place] [address]-08-05 18:13:00 Test Item Value Reference Range Interpretation Comments Plt Morph (test code = Normal (01/02/22 1:13 PM) Plt Morph) [place] 482272-08-05 18:13:00 Test Item Value Reference Range Interpretation Comments Segs (test code = Segs) 76.4 45.0-75.0 [place] [address]-08-05 18:13:00 Test Item Value Reference Range Interpretation Comments Lymphocytes (test code = Lymphocytes) 14.6 20.0-40.0 [place] [address]-08-05 18:13:00 Test Item Value Reference Range Interpretation Comments Monocytes (test code = Monocytes) 7.5 2.0-12.0 [place] [address]-08-05 18:13:00 Test Item Value Reference Range Interpretation Comments Eosinophils (test code = 0.6 See_Comment [A utomated message] The Eosinophils) system which ge nerated this result tra nsmitted reference range : <=4.0. The reference r samantha was not used to int erpret this result as normal/abnormal . [place] 482272-08-05 18:13:00 Test Item Value Reference Range Interpretation Comments Basophils (test code = 0.9 See_Comment [Aut omated message] The Basophils) system which ge nerated this result tra nsmitted reference range : <=1.0. The reference r samantha was not used to int erpret this result as normal/abnormal . [id number] 18:13:00 Test Item Value Reference Range Interpretation Comments Neutrophils # (test code = Neutrophils 3.7 1.5-8.1 #) [id number] 18:13:00 Test Item Value Reference Range Interpretation Comments Lymphocytes # (test code = Lymphocytes 0.7 1.0-5.5 #) [id number] 18:13:00 Test Item Value Reference Range Interpretation Comments Monocytes # (test code 0.4 See_Comment [Aut omated message] The = Monocytes #) system which generated this result tra nsmitted reference range : <=0.8. The reference r samantha was not used to int erpret this result as normal/abnormal . [facility] H[id number] 18:13:00 Test Item Value Reference Range Interpretation Comments Anisocyte (test code = 2+ *ABN*(01/02/22 1:13 Anisocyte) PM) [facility]vhgescWWYXIFKYYN4592-88-57 18:13:00 Test Item Value Reference Range Interpretation Comments Macrocyte (test code = 2+ *ABN*(01/02/22 1:13 Macrocyte) PM) [facility] [id number] 18:13:00 Test Item Value Reference Range Interpretation Comments HS Troponin I (test code = HS Troponin 156 I) [facility] [id number] 18:13:00 Test Item Value Reference Range Interpretation Comments Glucose Lvl (test code = Glucose Lvl) 237 70-99 [facility] [id number] 18:13:00 Test Item Value Reference Range Interpretation Comments BUN (test code = BUN) 46 7-22 [facility] [id number] 18:13:00 Test Item Value Reference Range Interpretation Comments Creatinine Lvl (test code = Creatinine 5.92 0.50-1.40 Lvl) [facility] [id number] 18:13:00 Test Item Value Reference Range Interpretation Comments Sodium Lvl (test code = Sodium Lvl) 134 135-145 [place] 584952-08-05 18:13:00 Test Item Value Reference Range Interpretation Comments Potassium Lvl (test code = Potassium 4.4 3.5-5.1 Lvl) [place] [address]-08-05 18:13:00 Test Item Value Reference Range Interpretation Comments Chloride Lvl (test code = Chloride Lvl) 98 95-109 [place] [address]-08-05 18:13:00 Test Item Value Reference Range Interpretation Comments CO2 (test code = CO2) 29 24-32 [address]08-05 18:13:00 Test Item Value Reference Range Interpretation Comments Calcium Lvl (test code = Calcium Lvl) 9.2 8.5-10.5 [address]08-05 18:13:00 Test Item Value Reference Range Interpretation Comments Total Protein (test code = Total 6.6 6.4-8.4 Protein) [address]08-05 18:13:00 Test Item Value Reference Range Interpretation Comments Albumin Lvl (test code = Albumin Lvl) 3.1 3.5-5.0 [address]08-05 18:13:00 Test Item Value Reference Range Interpretation Comments ALT (test code = ALT) 36 See_Comment [Auto mated message] The system which ge nerated this result transmit swathi reference range : <=65. The reference range was not used to interpr et this result as deny l/abnormal. [address]08-05 18:13:00 Test Item Value Reference Range Interpretation Comments AST (test code = AST) 28 See_Comment [Auto mated message] The system which ge nerated this result transmit swathi reference range : <=37. The reference range was not used to interpr et this result as edny l/abnormal. [facility] [id number] 18:13:00 Test Item Value Reference Range Interpretation Comments Alk Phos (test code = Alk Phos) 231 39-136 [place] [address]-08-05 18:13:00 Test Item Value Reference Range Interpretation Comments Bili Total (test code = Bili Total) 1.0 0.2-1.3 [address]08-05 18:13:00 Test Item Value Reference Range Interpretation Comments AGAP (test code = AGAP) 11.4 10.0-20.0 [place] 584952-08-05 18:13:00 Test Item Value Reference Range Interpretation Comments B/C Ratio (test code = B/C Ratio) 8 1 6-25 [place] [address]-08-05 18:13:00 Test Item Value Reference Range Interpretation Comments Globulin (test code = Globulin) 3.5 2.7-4.2 [place] 584952-08-05 18:13:00 Test Item Value Reference Range Interpretation Comments A/G Ratio (test code = A/G Ratio) 0.9 1 0.7-1.6 [place] [address]-08-05 18:13:00 Test Item Value Reference Range Interpretation Comments eGFR (test code = eGFR) 9 [place] 482272-08-05 18:13:00 Test Item Value Reference Range Interpretation Comments WBC (test code = WBC) 4.8 3.7-10.4 [place] 482272-08-05 18:13:00 Test Item Value Reference Range Interpretation Comments RBC (test code = RBC) 1.93 4.70-6.10 [place] [address]-08-05 18:13:00 Test Item Value Reference Range Interpretation Comments Hgb (test code = Hgb) 7.2 14.0-18.0 [place] [address]-08-05 18:13:00 Test Item Value Reference Range Interpretation Comments Hct (test code = Hct) 21.2 42.0-54.0 [place] [address]-08-05 18:13:00 Test Item Value Reference Range Interpretation Comments MCV (test code = MCV) 110.1 80.0-94.0 [place] [address]-08-05 18:13:00 Test Item Value Reference Range Interpretation Comments MCH (test code = MCH) 37.1 pg 27.0-31.0 [place] [address]-08-05 18:13:00 Test Item Value Reference Range Interpretation Comments MCHC (test code = MCHC) 33.7 32.0-36.0 [place] [address]-08-05 18:13:00 Test Item Value Reference Range Interpretation Comments RDW (test code = RDW) 25.8 11.5-14.5 [place] [address]-08-05 18:13:00 Test Item Value Reference Range Interpretation Comments Platelet (test code = Platelet) 216 133-450 [place] 482272-08-05 18:13:00 Test Item Value Reference Range Interpretation Comments MPV (test code = MPV) 8.2 7.4-10.4 [place] [address]-08-05 18:13:00 Test Item Value Reference Range Interpretation Comments PT (test code = PT) 16.9 s 12.0-14.7 [place] [address]-08-05 18:13:00 Test Item Value Reference Range Interpretation Comments INR (test code = INR) 1.39 1 0.85-1.17 [place] [address]-08-05 18:13:00 Test Item Value Reference Range Interpretation Comments PTT (test code = PTT) 35.0 s 22.9-35.8 [place] [address]-08-05 18:13:00 Test Item Value Reference Range Interpretation Comments Plt Morph (test code = Normal (01/02/22 1:13 PM) Plt Morph) [facility] [id number] 18:13:00 Test Item Value Reference Range Interpretation Comments Segs (test code = Segs) 76.4 45.0-75.0 [place] [address]-08-05 18:13:00 Test Item Value Reference Range Interpretation Comments Lymphocytes (test code = Lymphocytes) 14.6 20.0-40.0 [place] [address]-08-05 18:13:00 Test Item Value Reference Range Interpretation Comments Monocytes (test code = Monocytes) 7.5 2.0-12.0 [place] [address]-08-05 18:13:00 Test Item Value Reference Range Interpretation Comments Eosinophils (test code = 0.6 See_Comment [A utomated message] The Eosinophils) system which ge nerated this result tra nsmitted reference range : <=4.0. The reference r samantha was not used to int erpret this result as normal/abnormal . [place] [address]-08-05 18:13:00 Test Item Value Reference Range Interpretation Comments Basophils (test code = 0.9 See_Comment [Aut omated message] The Basophils) system which ge nerated this result tra nsmitted reference range : <=1.0. The reference r samantha was not used to int erpret this result as normal/abnormal . [facility] CenterIyjlevbQCUOOUVZRU1151-93-96 18:13:00 Test Item Value Reference Range Interpretation Comments Neutrophils # (test code = Neutrophils 3.7 1.5-8.1 #) [facility] CenterVzlwjeiIRRVXMNEKM5393-66-26 18:13:00 Test Item Value Reference Range Interpretation Comments Lymphocytes # (test code = Lymphocytes 0.7 1.0-5.5 #) [facility] CenterPvscadgBIUKTDWYFX3509-66-62 18:13:00 Test Item Value Reference Range Interpretation Comments Monocytes # (test code 0.4 See_Comment [Aut omated message] The = Monocytes #) system which generated this result tra nsmitted reference range : <=0.8. The reference r samantha was not used to int erpret this result as normal/abnormal . [facility] CenterIydnpltUUOEHXOUQV6273-90-29 18:13:00 Test Item Value Reference Range Interpretation Comments Anisocyte (test code = 2+ *ABN*(01/02/22 1:13 Anisocyte) PM) [facility] CenterJcthurpAMRUINNOKU2607-37-82 18:13:00 Test Item Value Reference Range Interpretation Comments Macrocyte (test code = 2+ *ABN*(01/02/22 1:13 Macrocyte) PM) [facility] [id number] 18:13:00 Test Item Value Reference Range Interpretation Comments HS Troponin I (test code = HS Troponin 156 I) [facility] [id number] 18:13:00 Test Item Value Reference Range Interpretation Comments Glucose Lvl (test code = Glucose Lvl) 237 70-99 [facility] [id number] 18:13:00 Test Item Value Reference Range Interpretation Comments BUN (test code = BUN) 46 7-22 [facility] [id number] 18:13:00 Test Item Value Reference Range Interpretation Comments Creatinine Lvl (test code = Creatinine 5.92 0.50-1.40 Lvl) [facility]2022-08-05 18:13:00 Test Item Value Reference Range Interpretation Comments Sodium Lvl (test code = Sodium Lvl) 134 135-145 [facility] [id number] 18:13:00 Test Item Value Reference Range Interpretation Comments Potassium Lvl (test code = Potassium 4.4 3.5-5.1 Lvl) [address]08-05 18:13:00 Test Item Value Reference Range Interpretation Comments Chloride Lvl (test code = Chloride Lvl) 98 95-109 [address]08-05 18:13:00 Test Item Value Reference Range Interpretation Comments CO2 (test code = CO2) 29 24-32 [address]08-05 18:13:00 Test Item Value Reference Range Interpretation Comments Calcium Lvl (test code = Calcium Lvl) 9.2 8.5-10.5 [facility] [id number] 18:13:00 Test Item Value Reference Range Interpretation Comments Total Protein (test code = Total 6.6 6.4-8.4 Protein) [address]08-05 18:13:00 Test Item Value Reference Range Interpretation Comments Albumin Lvl (test code = Albumin Lvl) 3.1 3.5-5.0 [facility] [id number] 18:13:00 Test Item Value Reference Range Interpretation Comments ALT (test code = ALT) 36 See_Comment [Auto mated message] The system which ge nerated this result transmit swathi reference range : <=65. The reference range was not used to interpr et this result as deny l/abnormal. [facility] [id number] 18:13:00 Test Item Value Reference Range Interpretation Comments AST (test code = AST) 28 See_Comment [Auto mated message] The system which ge nerated this result transmit swathi reference range : <=37. The reference range was not used to interpr et this result as deny l/abnormal. [facility] [id number] 18:13:00 Test Item Value Reference Range Interpretation Comments Alk Phos (test code = Alk Phos) 231 39-136 [facility] [id number] 18:13:00 Test Item Value Reference Range Interpretation Comments Bili Total (test code = Bili Total) 1.0 0.2-1.3 [facility] [id number] 18:13:00 Test Item Value Reference Range Interpretation Comments AGAP (test code = AGAP) 11.4 10.0-20.0 [place] 584952-08-05 18:13:00 Test Item Value Reference Range Interpretation Comments B/C Ratio (test code = B/C Ratio) 8 1 6-25 [place] [address]-08-05 18:13:00 Test Item Value Reference Range Interpretation Comments Globulin (test code = Globulin) 3.5 2.7-4.2 [place] 584952-08-05 18:13:00 Test Item Value Reference Range Interpretation Comments A/G Ratio (test code = A/G Ratio) 0.9 1 0.7-1.6 [place] [address]-08-05 18:13:00 Test Item Value Reference Range Interpretation Comments eGFR (test code = eGFR) 9 [place] 482272-08-05 18:13:00 Test Item Value Reference Range Interpretation Comments WBC (test code = WBC) 4.8 3.7-10.4 [place] 482272-08-05 18:13:00 Test Item Value Reference Range Interpretation Comments RBC (test code = RBC) 1.93 4.70-6.10 [place] 482272-08-05 18:13:00 Test Item Value Reference Range Interpretation Comments Hgb (test code = Hgb) 7.2 14.0-18.0 [place] [address]-08-05 18:13:00 Test Item Value Reference Range Interpretation Comments Hct (test code = Hct) 21.2 42.0-54.0 [place] 482272-08-05 18:13:00 Test Item Value Reference Range Interpretation Comments MCV (test code = MCV) 110.1 80.0-94.0 [place] [address]-08-05 18:13:00 Test Item Value Reference Range Interpretation Comments MCH (test code = MCH) 37.1 pg 27.0-31.0 [place] [address]-08-05 18:13:00 Test Item Value Reference Range Interpretation Comments MCHC (test code = MCHC) 33.7 32.0-36.0 [place] [address]-08-05 18:13:00 Test Item Value Reference Range Interpretation Comments RDW (test code = RDW) 25.8 11.5-14.5 [place] [address]-08-05 18:13:00 Test Item Value Reference Range Interpretation Comments Platelet (test code = Platelet) 216 133-450 [place] 482272-08-05 18:13:00 Test Item Value Reference Range Interpretation Comments MPV (test code = MPV) 8.2 7.4-10.4 [place] [address]-08-05 18:13:00 Test Item Value Reference Range Interpretation Comments PT (test code = PT) 16.9 s 12.0-14.7 [place] [address]-08-05 18:13:00 Test Item Value Reference Range Interpretation Comments INR (test code = INR) 1.39 1 0.85-1.17 [place] [address]-08-05 18:13:00 Test Item Value Reference Range Interpretation Comments PTT (test code = PTT) 35.0 s 22.9-35.8 [place] [address]-08-05 18:13:00 Test Item Value Reference Range Interpretation Comments Plt Morph (test code = Normal (01/02/22 1:13 PM) Plt Morph) [place] 482272-08-05 18:13:00 Test Item Value Reference Range Interpretation Comments Segs (test code = Segs) 76.4 45.0-75.0 [place] [address]-08-05 18:13:00 Test Item Value Reference Range Interpretation Comments Lymphocytes (test code = Lymphocytes) 14.6 20.0-40.0 [place] [address]-08-05 18:13:00 Test Item Value Reference Range Interpretation Comments Monocytes (test code = Monocytes) 7.5 2.0-12.0 [place] [address]-08-05 18:13:00 Test Item Value Reference Range Interpretation Comments Eosinophils (test code = 0.6 See_Comment [A utomated message] The Eosinophils) system which ge nerated this result tra nsmitted reference range : <=4.0. The reference r samantha was not used to int erpret this result as normal/abnormal . [place] [address]-08-05 18:13:00 Test Item Value Reference Range Interpretation Comments Basophils (test code = 0.9 See_Comment [Aut omated message] The Basophils) system which ge nerated this result tra nsmitted reference range : <=1.0. The reference r samantha was not used to int erpret this result as normal/abnormal . [place] [address]-08-05 18:13:00 Test Item Value Reference Range Interpretation Comments Neutrophils # (test code = Neutrophils 3.7 1.5-8.1 #) [place] [address]-08-05 18:13:00 Test Item Value Reference Range Interpretation Comments Lymphocytes # (test code = Lymphocytes 0.7 1.0-5.5 #) [place] [address]-08-05 18:13:00 Test Item Value Reference Range Interpretation Comments Monocytes # (test code 0.4 See_Comment [Aut omated message] The = Monocytes #) system which generated this result tra nsmitted reference range : <=0.8. The reference r samantha was not used to int erpret this result as normal/abnormal . [address]08-05 18:13:00 Test Item Value Reference Range Interpretation Comments Anisocyte (test code = 2+ *ABN*(01/02/22 1:13 Anisocyte) PM) [address]08-05 18:13:00 Test Item Value Reference Range Interpretation Comments Macrocyte (test code = 2+ *ABN*(01/02/22 1:13 Macrocyte) PM) [facility]2022-07-19 09:29:00 Test Item Value Reference Range Interpretation Comments Glucose Lvl (test code = Glucose Lvl) 199 70-99 [place] 584952-07-19 09:29:00 Test Item Value Reference Range Interpretation Comments BUN (test code = BUN) 28 7-22 [place] 584952-07-19 09:29:00 Test Item Value Reference Range Interpretation Comments Creatinine Lvl (test code = Creatinine 4.84 0.50-1.40 Lvl) [place] 584952-07-19 09:29:00 Test Item Value Reference Range Interpretation Comments Sodium Lvl (test code = Sodium Lvl) 134 135-145 [place] 584952-07-19 09:29:00 Test Item Value Reference Range Interpretation Comments Potassium Lvl (test code = Potassium 4.3 3.5-5.1 Lvl) [place] 584952-07-19 09:29:00 Test Item Value Reference Range Interpretation Comments Chloride Lvl (test code = Chloride Lvl) 100 95-109 [facility] [id number] 09:29:00 Test Item Value Reference Range Interpretation Comments CO2 (test code = CO2) 28 24-32 [facility] [id number] 09:29:00 Test Item Value Reference Range Interpretation Comments Calcium Lvl (test code = Calcium Lvl) 9.4 8.5-10.5 [facility] [id number] 09:29:00 Test Item Value Reference Range Interpretation Comments Total Protein (test code = Total 6.6 6.4-8.4 Protein) [facility] [id number] 09:29:00 Test Item Value Reference Range Interpretation Comments Albumin Lvl (test code = Albumin Lvl) 3.0 3.5-5.0 [facility] [id number] 09:29:00 Test Item Value Reference Range Interpretation Comments ALT (test code = ALT) 92 See_Comment [Auto mated message] The system which ge nerated this result transmit swathi reference range : <=65. The reference range was not used to interpr et this result as deny l/abnormal. [facility] [employer] [id number] 09:29:00 Test Item Value Reference Range Interpretation Comments AST (test code = AST) 123 See_Comment [Auto mated message] The system which ge nerated this result transmit swathi reference range : <=37. The reference range was not used to interpr et this result as deny l/abnormal. [facility] [employer] [id number] 09:29:00 Test Item Value Reference Range Interpretation Comments Alk Phos (test code = Alk Phos) 272 39-136 [facility] [id number] 09:29:00 Test Item Value Reference Range Interpretation Comments Bili Total (test code = Bili Total) 0.9 0.2-1.3 [facility] [id number] 09:29:00 Test Item Value Reference Range Interpretation Comments AGAP (test code = AGAP) 10.3 10.0-20.0 [facility] [id number] 09:29:00 Test Item Value Reference Range Interpretation Comments B/C Ratio (test code = B/C Ratio) 6 1 6-25 [place] 584952-07-19 09:29:00 Test Item Value Reference Range Interpretation Comments Globulin (test code = Globulin) 3.6 2.7-4.2 [place] [address]-07-19 09:29:00 Test Item Value Reference Range Interpretation Comments A/G Ratio (test code = A/G Ratio) 0.8 1 0.7-1.6 [place] [address]-07-19 09:29:00 Test Item Value Reference Range Interpretation Comments eGFR (test code = eGFR) 12 [facility]2022-07-19 09:29:00 Test Item Value Reference Range Interpretation Comments Phosphorus (test code = Phosphorus) 4.3 2.5-4.5 [place] 482272-07-19 09:29:00 Test Item Value Reference Range Interpretation Comments WBC (test code = WBC) 4.7 3.7-10.4 [place] 482272-07-19 09:29:00 Test Item Value Reference Range Interpretation Comments RBC (test code = RBC) 2.14 4.70-6.10 [place] 482272-07-19 09:29:00 Test Item Value Reference Range Interpretation Comments Hgb (test code = Hgb) 7.6 14.0-18.0 [place] 482272-07-19 09:29:00 Test Item Value Reference Range Interpretation Comments Hct (test code = Hct) 22.8 42.0-54.0 [place] 482272-07-19 09:29:00 Test Item Value Reference Range Interpretation Comments MCV (test code = MCV) 106.6 80.0-94.0 [place] 482272-07-19 09:29:00 Test Item Value Reference Range Interpretation Comments MCH (test code = MCH) 35.6 pg 27.0-31.0 [place] 482272-07-19 09:29:00 Test Item Value Reference Range Interpretation Comments MCHC (test code = MCHC) 33.4 32.0-36.0 [place] 482272-07-19 09:29:00 Test Item Value Reference Range Interpretation Comments RDW (test code = RDW) 24.3 11.5-14.5 [place] 482272-07-19 09:29:00 Test Item Value Reference Range Interpretation Comments Platelet (test code = Platelet) 148 133-450 [place] [address]-07-19 09:29:00 Test Item Value Reference Range Interpretation Comments MPV (test code = MPV) 8.1 7.4-10.4 [place] [address]-07-19 09:29:00 Test Item Value Reference Range Interpretation Comments D-Dimer (test code = D-Dimer) 3.63 [place] [address]-07-19 09:29:00 Test Item Value Reference Range Interpretation Comments Segs (test code = Segs) 74.8 45.0-75.0 [place] [address]-07-19 09:29:00 Test Item Value Reference Range Interpretation Comments Lymphocytes (test code = Lymphocytes) 15.5 20.0-40.0 [place] [address]-07-19 09:29:00 Test Item Value Reference Range Interpretation Comments Monocytes (test code = Monocytes) 9.5 2.0-12.0 [place] [address]-07-19 09:29:00 Test Item Value Reference Range Interpretation Comments Basophils (test code = 0.2 See_Comment [Aut omated message] The Basophils) system which ge nerated this result tra nsmitted reference range : <=1.0. The reference r samantha was not used to int erpret this result as normal/abnormal . [place] 482272-07-19 09:29:00 Test Item Value Reference Range Interpretation Comments Neutrophils # (test code = Neutrophils 3.5 1.5-8.1 #) [place]2272-07-19 09:29:00 Test Item Value Reference Range Interpretation Comments Lymphocytes # (test code = Lymphocytes 0.7 1.0-5.5 #) [place] [address]-07-19 09:29:00 Test Item Value Reference Range Interpretation Comments Monocytes # (test code 0.4 See_Comment [Aut omated message] The = Monocytes #) system which generated this result tra nsmitted reference range : <=0.8. The reference r samantha was not used to int erpret this result as normal/abnormal . [place] [address]-07-19 09:29:00 Test Item Value Reference Range Interpretation Comments Macrocyte (test code = 1+ *ABN*(12/16/21 Macrocyte) 4:29 AM) [id number] 09:29:00 Test Item Value Reference Range Interpretation Comments C-REACTIVE PROTEIN (test code = 19.0 C-REACTIVE PROTEIN) [place] 584952-07-19 09:29:00 Test Item Value Reference Range Interpretation Comments Glucose Lvl (test code = Glucose Lvl) 199 70-99 [place] 584952-07-19 09:29:00 Test Item Value Reference Range Interpretation Comments BUN (test code = BUN) 28 - [place] 584952-07-19 09:29:00 Test Item Value Reference Range Interpretation Comments Creatinine Lvl (test code = Creatinine 4.84 0.50-1.40 Lvl) [place] 584952-07-19 09:29:00 Test Item Value Reference Range Interpretation Comments Sodium Lvl (test code = Sodium Lvl) 134 135-145 [place] 584952-07-19 09:29:00 Test Item Value Reference Range Interpretation Comments Potassium Lvl (test code = Potassium 4.3 3.5-5.1 Lvl) [facility]2022-07-19 09:29:00 Test Item Value Reference Range Interpretation Comments Chloride Lvl (test code = Chloride Lvl) 100 95-109 [place] 584952-07-19 09:29:00 Test Item Value Reference Range Interpretation Comments CO2 (test code = CO2) 28 24-32 [place] 584952-07-19 09:29:00 Test Item Value Reference Range Interpretation Comments Calcium Lvl (test code = Calcium Lvl) 9.4 8.5-10.5 [place] 584952-07-19 09:29:00 Test Item Value Reference Range Interpretation Comments Total Protein (test code = Total 6.6 6.4-8.4 Protein) [place] 584952-07-19 09:29:00 Test Item Value Reference Range Interpretation Comments Albumin Lvl (test code = Albumin Lvl) 3.0 3.5-5.0 [place] 584952-07-19 09:29:00 Test Item Value Reference Range Interpretation Comments ALT (test code = ALT) 92 See_Comment [Auto mated message] The system which ge nerated this result transmit swathi reference range : <=65. The reference range was not used to interpr et this result as deny l/abnormal. [facility] [id number] 09:29:00 Test Item Value Reference Range Interpretation Comments AST (test code = AST) 123 See_Comment [Auto mated message] The system which ge nerated this result transmit swathi reference range : <=37. The reference range was not used to interpr et this result as deny l/abnormal. [facility] [id number] 09:29:00 Test Item Value Reference Range Interpretation Comments Alk Phos (test code = Alk Phos) 272 39-136 [facility] [id number] 09:29:00 Test Item Value Reference Range Interpretation Comments Bili Total (test code = Bili Total) 0.9 0.2-1.3 [facility] [id number] 09:29:00 Test Item Value Reference Range Interpretation Comments AGAP (test code = AGAP) 10.3 10.0-20.0 [facility] [id number] 09:29:00 Test Item Value Reference Range Interpretation Comments B/C Ratio (test code = B/C Ratio) 6 1 6-25 [facility] [id number] 09:29:00 Test Item Value Reference Range Interpretation Comments Globulin (test code = Globulin) 3.6 2.7-4.2 [facility] [id number] 09:29:00 Test Item Value Reference Range Interpretation Comments A/G Ratio (test code = A/G Ratio) 0.8 1 0.7-1.6 [facility] [id number] 09:29:00 Test Item Value Reference Range Interpretation Comments eGFR (test code = eGFR) 12 [facility] [id number] 09:29:00 Test Item Value Reference Range Interpretation Comments Phosphorus (test code = Phosphorus) 4.3 2.5-4.5 [place] 482272-07-19 09:29:00 Test Item Value Reference Range Interpretation Comments WBC (test code = WBC) 4.7 3.7-10.4 [place] 482272-07-19 09:29:00 Test Item Value Reference Range Interpretation Comments RBC (test code = RBC) 2.14 4.70-6.10 [facility] CenterQhxfhsqHMLTFIBQLY5669-36-95 09:29:00 Test Item Value Reference Range Interpretation Comments Hgb (test code = Hgb) 7.6 14.0-18.0 [facility] C[id number] 09:29:00 Test Item Value Reference Range Interpretation Comments Hct (test code = Hct) 22.8 42.0-54.0 [facility] CenterDukkzcnYEWNYUKBHT0104-98-58 09:29:00 Test Item Value Reference Range Interpretation Comments MCV (test code = MCV) 106.6 80.0-94.0 [facility] CenterMkukaipPUXICPZNEE8251-12-08 09:29:00 Test Item Value Reference Range Interpretation Comments MCH (test code = MCH) 35.6 pg 27.0-31.0 [facility] CenterDnsluqzAXFNRMQLDN6638-71-19 09:29:00 Test Item Value Reference Range Interpretation Comments MCHC (test code = MCHC) 33.4 32.0-36.0 [facility] CenterYbzklzgLSFLQPPDSW4940-30-00 09:29:00 Test Item Value Reference Range Interpretation Comments RDW (test code = RDW) 24.3 11.5-14.5 [facility] CenterRnxzexfFEHXXKDWFT0903-27-73 09:29:00 Test Item Value Reference Range Interpretation Comments Platelet (test code = Platelet) 148 133-450 [facility] CenterXbkxcmvQMKSZNUOZB0359-53-68 09:29:00 Test Item Value Reference Range Interpretation Comments MPV (test code = MPV) 8.1 7.4-10.4 [facility] CenterChaozdeIGATCGYSMY6311-13-36 09:29:00 Test Item Value Reference Range Interpretation Comments D-Dimer (test code = D-Dimer) 3.63 [facility] CenterZmpzikzHOYBFDZMMI7723-89-69 09:29:00 Test Item Value Reference Range Interpretation Comments Segs (test code = Segs) 74.8 45.0-75.0 [place] 482272-07-19 09:29:00 Test Item Value Reference Range Interpretation Comments Lymphocytes (test code = Lymphocytes) 15.5 20.0-40.0 [facility] CenterShttvqqZRHLJBJAOE8990-65-15 09:29:00 Test Item Value Reference Range Interpretation Comments Monocytes (test code = Monocytes) 9.5 2.0-12.0 [facility] CenterYssjvfmASETCUUSAA4480-27-20 09:29:00 Test Item Value Reference Range Interpretation Comments Basophils (test code = 0.2 See_Comment [Aut omated message] The Basophils) system which ge nerated this result tra nsmitted reference range : <=1.0. The reference r samantha was not used to int erpret this result as normal/abnormal . [facility] CenterGrnvrufFMPXNXJBHI4570-31-42 09:29:00 Test Item Value Reference Range Interpretation Comments Neutrophils # (test code = Neutrophils 3.5 1.5-8.1 #) [facility] CenterZdvhqjwRXTJFEFHCL7684-21-79 09:29:00 Test Item Value Reference Range Interpretation Comments Lymphocytes # (test code = Lymphocytes 0.7 1.0-5.5 #) [facility] CenterTwyardjGJJOPRUUGX4175-29-97 09:29:00 Test Item Value Reference Range Interpretation Comments Monocytes # (test code 0.4 See_Comment [Aut omated message] The = Monocytes #) system which generated this result tra nsmitted reference range : <=0.8. The reference r samantha was not used to int erpret this result as normal/abnormal . [facility] CenterRiiqixgIZEJFNZPTK9944-02-18 09:29:00 Test Item Value Reference Range Interpretation Comments Macrocyte (test code = 1+ *ABN*(12/16/21 Macrocyte) 4:29 AM) [facility] AntonioCpdoqmvVSTCTKEQCD2644-36-35 09:29:00 Test Item Value Reference Range Interpretation Comments C-REACTIVE PROTEIN (test code = 19.0 C-REACTIVE PROTEIN) [facility]2022-07-19 09:29:00 Test Item Value Reference Range Interpretation Comments Glucose Lvl (test code = Glucose Lvl) 199 70-99 [facility]2022-07-19 09:29:00 Test Item Value Reference Range Interpretation Comments BUN (test code = BUN) 28 - [place] 584952-07-19 09:29:00 Test Item Value Reference Range Interpretation Comments Creatinine Lvl (test code = Creatinine 4.84 0.50-1.40 Lvl) [facility]2022-07-19 09:29:00 Test Item Value Reference Range Interpretation Comments Sodium Lvl (test code = Sodium Lvl) 134 135-145 [facility] [id number] 09:29:00 Test Item Value Reference Range Interpretation Comments Potassium Lvl (test code = Potassium 4.3 3.5-5.1 Lvl) [place] 584952-07-19 09:29:00 Test Item Value Reference Range Interpretation Comments Chloride Lvl (test code = Chloride Lvl) 100 95-109 [place] 584952-07-19 09:29:00 Test Item Value Reference Range Interpretation Comments CO2 (test code = CO2) 28 24-32 [place] 584952-07-19 09:29:00 Test Item Value Reference Range Interpretation Comments Calcium Lvl (test code = Calcium Lvl) 9.4 8.5-10.5 [place] 584952-07-19 09:29:00 Test Item Value Reference Range Interpretation Comments Total Protein (test code = Total 6.6 6.4-8.4 Protein) [place] 584952-07-19 09:29:00 Test Item Value Reference Range Interpretation Comments Albumin Lvl (test code = Albumin Lvl) 3.0 3.5-5.0 [place] 584952-07-19 09:29:00 Test Item Value Reference Range Interpretation Comments ALT (test code = ALT) 92 See_Comment [Auto mated message] The system which ge nerated this result transmit swathi reference range : <=65. The reference range was not used to interpr et this result as deny l/abnormal. [place] 584952-07-19 09:29:00 Test Item Value Reference Range Interpretation Comments AST (test code = AST) 123 See_Comment [Auto mated message] The system which ge nerated this result transmit swathi reference range : <=37. The reference range was not used to interpr et this result as deny l/abnormal. [place] 584952-07-19 09:29:00 Test Item Value Reference Range Interpretation Comments Alk Phos (test code = Alk Phos) 272 39-136 [place] 584952-07-19 09:29:00 Test Item Value Reference Range Interpretation Comments Bili Total (test code = Bili Total) 0.9 0.2-1.3 [place] 584952-07-19 09:29:00 Test Item Value Reference Range Interpretation Comments AGAP (test code = AGAP) 10.3 10.0-20.0 [place] 584952-07-19 09:29:00 Test Item Value Reference Range Interpretation Comments B/C Ratio (test code = B/C Ratio) 6 1 6-25 [place] 584952-07-19 09:29:00 Test Item Value Reference Range Interpretation Comments Globulin (test code = Globulin) 3.6 2.7-4.2 [place] 584952-07-19 09:29:00 Test Item Value Reference Range Interpretation Comments A/G Ratio (test code = A/G Ratio) 0.8 1 0.7-1.6 [place] 584952-07-19 09:29:00 Test Item Value Reference Range Interpretation Comments eGFR (test code = eGFR) 12 [facility]2022-07-19 09:29:00 Test Item Value Reference Range Interpretation Comments Phosphorus (test code = Phosphorus) 4.3 2.5-4.5 [facility] [id number] 09:29:00 Test Item Value Reference Range Interpretation Comments WBC (test code = WBC) 4.7 3.7-10.4 [place] 482272-07-19 09:29:00 Test Item Value Reference Range Interpretation Comments RBC (test code = RBC) 2.14 4.70-6.10 [facility] CenterUdozdgdSITULWFCCZ1114-16-50 09:29:00 Test Item Value Reference Range Interpretation Comments Hgb (test code = Hgb) 7.6 14.0-18.0 [place] 482272-07-19 09:29:00 Test Item Value Reference Range Interpretation Comments Hct (test code = Hct) 22.8 42.0-54.0 [place] 482272-07-19 09:29:00 Test Item Value Reference Range Interpretation Comments MCV (test code = MCV) 106.6 80.0-94.0 [place] 482272-07-19 09:29:00 Test Item Value Reference Range Interpretation Comments MCH (test code = MCH) 35.6 pg 27.0-31.0 [place] 482272-07-19 09:29:00 Test Item Value Reference Range Interpretation Comments MCHC (test code = MCHC) 33.4 32.0-36.0 [place] 482272-07-19 09:29:00 Test Item Value Reference Range Interpretation Comments RDW (test code = RDW) 24.3 11.5-14.5 [place] 482272-07-19 09:29:00 Test Item Value Reference Range Interpretation Comments Platelet (test code = Platelet) 148 133-450 [place] 482272-07-19 09:29:00 Test Item Value Reference Range Interpretation Comments MPV (test code = MPV) 8.1 7.4-10.4 [place] 482272-07-19 09:29:00 Test Item Value Reference Range Interpretation Comments D-Dimer (test code = D-Dimer) 3.63 [place] [address]-07-19 09:29:00 Test Item Value Reference Range Interpretation Comments Segs (test code = Segs) 74.8 45.0-75.0 [place] 482272-07-19 09:29:00 Test Item Value Reference Range Interpretation Comments Lymphocytes (test code = Lymphocytes) 15.5 20.0-40.0 [place] 482272-07-19 09:29:00 Test Item Value Reference Range Interpretation Comments Monocytes (test code = Monocytes) 9.5 2.0-12.0 [place] 482272-07-19 09:29:00 Test Item Value Reference Range Interpretation Comments Basophils (test code = 0.2 See_Comment [Aut omated message] The Basophils) system which ge nerated this result tra nsmitted reference range : <=1.0. The reference r samantha was not used to int erpret this result as normal/abnormal . [place] 482272-07-19 09:29:00 Test Item Value Reference Range Interpretation Comments Neutrophils # (test code = Neutrophils 3.5 1.5-8.1 #) [place] [address]-07-19 09:29:00 Test Item Value Reference Range Interpretation Comments Lymphocytes # (test code = Lymphocytes 0.7 1.0-5.5 #) [place] [address]-07-19 09:29:00 Test Item Value Reference Range Interpretation Comments Monocytes # (test code 0.4 See_Comment [Aut omated message] The = Monocytes #) system which generated this result tra nsmitted reference range : <=0.8. The reference r samantha was not used to int erpret this result as normal/abnormal . [facility] AntonioIyfaywiDXMTKAZHLI7788-85-78 09:29:00 Test Item Value Reference Range Interpretation Comments Macrocyte (test code = 1+ *ABN*(12/16/21 Macrocyte) 4:29 AM) [facility] AntonioHbzrwfnJLMANIPYFI0203-80-08 09:29:00 Test Item Value Reference Range Interpretation Comments C-REACTIVE PROTEIN (test code = 19.0 C-REACTIVE PROTEIN) [facility] AntonioHmqoqvpWNXIBHDQRU5847-29-35 02:28:00 Test Item Value Reference Range Interpretation Comments Hep Bs Ag (test code Negative *NA*(12/15/21 = Hep Bs Ag) 9:28 PM) [facility]nyslqzJSSDJSPFHT7655-64-07 02:28:00 Test Item Value Reference Range Interpretation Comments Hep Bs Ag (test code Negative *NA*(12/15/21 = Hep Bs Ag) 9:28 PM) [facility] AntonioMqdtljyCQWAZWTTUE1305-42-22 02:28:00 Test Item Value Reference Range Interpretation Comments Hep Bs Ag (test code Negative *NA*(12/15/21 = Hep Bs Ag) 9:28 PM) [facility]annGram Stain Dbplei0313-17-92 17:16:00 Test Item Value Reference Range Interpretation Comments Gram Stain Report Gram Stain Performed By: (test code = [facility] [id number] 17:16:00 Test Item Value Reference Range Interpretation Comments Culture: Respiratory Moderate Yeast Normal w/Gram Stain (test code Respiratory Lyndsay = Culture: Respiratory Isolated w/Gram Stain) [facility] [id number] 17:16:00 Test Item Value Reference Range Interpretation Comments Gram Stain Report Gram Stain Performed By: (test code = [facility] St[facility]) [facility]ram [id number] 17:16:00 Test Item Value Reference Range Interpretation Comments Culture: Respiratory Moderate Yeast Normal w/Gram Stain (test code Respiratory Lyndsay = Culture: Respiratory Isolated w/Gram Stain) [facility] [id number] 17:16:00 Test Item Value Reference Range Interpretation Comments Gram Stain Report Gram Stain Performed By: (test code = [facility] St[facility] Report) [facility]/Gram [id number] 17:16:00 Test Item Value Reference Range Interpretation Comments Culture: Respiratory Moderate Yeast Normal w/Gram Stain (test code Respiratory Lyndsay = Culture: Respiratory Isolated w/Gram Stain) [facility] AntonioIbbrvfuMQWRCZSWII0404-98-88 09:04:00 Test Item Value Reference Range Interpretation Comments C-REACTIVE PROTEIN (test code = 25.1 C-REACTIVE PROTEIN) [facility] AntonioJozzkvvMFONISVYWZ7373-50-86 09:04:00 Test Item Value Reference Range Interpretation Comments Vanco Lvl (test code = Vanco Lvl) 15.2 [facility]2022-07-18 09:04:00 Test Item Value Reference Range Interpretation Comments Glucose Lvl (test code = Glucose Lvl) 59 70-99 [facility]2022-07-18 09:04:00 Test Item Value Reference Range Interpretation Comments BUN (test code = BUN) 41 7-22 [facility]2022-07-18 09:04:00 Test Item Value Reference Range Interpretation Comments Creatinine Lvl (test code = Creatinine 7.00 0.50-1.40 Lvl) [facility]2022-07-18 09:04:00 Test Item Value Reference Range Interpretation Comments Sodium Lvl (test code = Sodium Lvl) 134 135-145 [facility]2022-07-18 09:04:00 Test Item Value Reference Range Interpretation Comments Potassium Lvl (test code = Potassium 4.0 3.5-5.1 Lvl) [facility]2022-07-18 09:04:00 Test Item Value Reference Range Interpretation Comments Chloride Lvl (test code = Chloride Lvl) 102 95-109 [facility]2022-07-18 09:04:00 Test Item Value Reference Range Interpretation Comments CO2 (test code = CO2) 25 24-32 [facility]2022-07-18 09:04:00 Test Item Value Reference Range Interpretation Comments Calcium Lvl (test code = Calcium Lvl) 9.1 8.5-10.5 [place] 584952-07-18 09:04:00 Test Item Value Reference Range Interpretation Comments Total Protein (test code = Total 6.2 6.4-8.4 Protein) [facility]2022-07-18 09:04:00 Test Item Value Reference Range Interpretation Comments Albumin Lvl (test code = Albumin Lvl) 2.8 3.5-5.0 [facility] [employer] [id number] 09:04:00 Test Item Value Reference Range Interpretation Comments ALT (test code = ALT) 78 See_Comment [Auto mated message] The system which ge nerated this result transmit swathi reference range : <=65. The reference range was not used to interpr et this result as deny l/abnormal. [facility] [employer] [id number] 09:04:00 Test Item Value Reference Range Interpretation Comments AST (test code = AST) 117 See_Comment [Auto mated message] The system which ge nerated this result transmit swathi reference range : <=37. The reference range was not used to interpr et this result as deny l/abnormal. [facility] [employer] [id number] 09:04:00 Test Item Value Reference Range Interpretation Comments Alk Phos (test code = Alk Phos) 251 39-136 [facility] [employer] [id number] 09:04:00 Test Item Value Reference Range Interpretation Comments Bili Total (test code = Bili Total) 0.9 0.2-1.3 [facility] [employer] [id number] 09:04:00 Test Item Value Reference Range Interpretation Comments AGAP (test code = AGAP) 11.0 10.0-20.0 [facility] [employer] [id number] 09:04:00 Test Item Value Reference Range Interpretation Comments B/C Ratio (test code = B/C Ratio) 6 1 6-25 [facility] [employer] [id number] 09:04:00 Test Item Value Reference Range Interpretation Comments Globulin (test code = Globulin) 3.4 2.7-4.2 [facility] [employer] [id number] 09:04:00 Test Item Value Reference Range Interpretation Comments A/G Ratio (test code = A/G Ratio) 0.8 1 0.7-1.6 [facility] [employer] [id number] 09:04:00 Test Item Value Reference Range Interpretation Comments eGFR (test code = eGFR) 8 [facility] HospitalRfgziwzDNHCPFSZIH4918-71-37 09:04:00 Test Item Value Reference Range Interpretation Comments D-Dimer (test code = D-Dimer) 3.03 [facility] HospitalOszwvseZOGRUPLQRT1228-39-75 09:04:00 Test Item Value Reference Range Interpretation Comments WBC (test code = WBC) 3.6 3.7-10.4 [facility] CenterMobgmtkKXXQJCWOLB1927-51-49 09:04:00 Test Item Value Reference Range Interpretation Comments RBC (test code = RBC) 2.07 4.70-6.10 [facility] CenterWmbasobDCFESAIXAR1753-90-71 09:04:00 Test Item Value Reference Range Interpretation Comments Hgb (test code = Hgb) 7.5 14.0-18.0 [place] 482272-07-18 09:04:00 Test Item Value Reference Range Interpretation Comments Hct (test code = Hct) 22.0 42.0-54.0 [place] 482272-07-18 09:04:00 Test Item Value Reference Range Interpretation Comments MCV (test code = MCV) 106.3 80.0-94.0 [place] 482272-07-18 09:04:00 Test Item Value Reference Range Interpretation Comments MCH (test code = MCH) 36.1 pg 27.0-31.0 [facility] CenterXjakmssOONZPZWGIF6519-05-26 09:04:00 Test Item Value Reference Range Interpretation Comments MCHC (test code = MCHC) 33.9 32.0-36.0 [facility] CenterEdomtkuOYFUZWULXY7024-51-24 09:04:00 Test Item Value Reference Range Interpretation Comments RDW (test code = RDW) 23.9 11.5-14.5 [facility] CenterIgbhphvSNKURCJQKX1532-12-43 09:04:00 Test Item Value Reference Range Interpretation Comments Platelet (test code = Platelet) 133 133-450 [facility] CenterJeaoojzOZKUFUWURJ7854-81-94 09:04:00 Test Item Value Reference Range Interpretation Comments MPV (test code = MPV) 8.1 7.4-10.4 [facility] CenterWtdcumuLYEHSBBJPG1676-67-90 09:04:00 Test Item Value Reference Range Interpretation Comments Segs (test code = Segs) 60.8 45.0-75.0 [place] 482272-07-18 09:04:00 Test Item Value Reference Range Interpretation Comments Lymphocytes (test code = Lymphocytes) 22.3 20.0-40.0 [place] 482272-07-18 09:04:00 Test Item Value Reference Range Interpretation Comments Monocytes (test code = Monocytes) 13.9 2.0-12.0 [facility] CenterVqndhxiGWWKKWNYUF5835-84-01 09:04:00 Test Item Value Reference Range Interpretation Comments Eosinophils (test code = 2.6 See_Comment [A utomated message] The Eosinophils) system which ge nerated this result tra nsmitted reference range : <=4.0. The reference r samantha was not used to int erpret this result as normal/abnormal . [facility] CenterLpairwnHXPQAMWDQE2292-10-02 09:04:00 Test Item Value Reference Range Interpretation Comments Basophils (test code = 0.4 See_Comment [Aut omated message] The Basophils) system which ge nerated this result tra nsmitted reference range : <=1.0. The reference r samantha was not used to int erpret this result as normal/abnormal . [facility] CenterIxywqjpRKTGQTKNYO6608-85-62 09:04:00 Test Item Value Reference Range Interpretation Comments Neutrophils # (test code = Neutrophils 2.2 1.5-8.1 #) [facility] CenterGwnsuepCYIGSLENAD7931-13-92 09:04:00 Test Item Value Reference Range Interpretation Comments Lymphocytes # (test code = Lymphocytes 0.8 1.0-5.5 #) [facility] CenterKrxxyuaYQPDPDIBHO4651-17-76 09:04:00 Test Item Value Reference Range Interpretation Comments Monocytes # (test code 0.5 See_Comment [Aut omated message] The = Monocytes #) system which generated this result tra nsmitted reference range : <=0.8. The reference r samantha was not used to int erpret this result as normal/abnormal . [facility] CenterLemrcgeAGAGZLJXNM2069-03-19 09:04:00 Test Item Value Reference Range Interpretation Comments Eosinophils # (test code 0.1 See_Comment [A utomated message] The = Eosinophils #) system whic h generated this result tra nsmitted reference range : <=0.5. The reference r samantha was not used to int erpret this result as normal/abnormal . [facility] CenterKzoorjlYLRRNAIDFL2120-84-13 09:04:00 Test Item Value Reference Range Interpretation Comments Macrocyte (test code = 1+ *ABN*(12/15/21 Macrocyte) 4:04 AM) [facility] AntonioFlcsimrOTSVLEQSIL0305-50-68 09:04:00 Test Item Value Reference Range Interpretation Comments C-REACTIVE PROTEIN (test code = 25.1 C-REACTIVE PROTEIN) [facility] AntonioPjoknfjMOPPWLOQVX4173-72-60 09:04:00 Test Item Value Reference Range Interpretation Comments Vanco Lvl (test code = Vanco Lvl) 15.2 [place] 584952-07-18 09:04:00 Test Item Value Reference Range Interpretation Comments Glucose Lvl (test code = Glucose Lvl) 59 70-99 [place] 584952-07-18 09:04:00 Test Item Value Reference Range Interpretation Comments BUN (test code = BUN) 41 7-22 [place] 584952-07-18 09:04:00 Test Item Value Reference Range Interpretation Comments Creatinine Lvl (test code = Creatinine 7.00 0.50-1.40 Lvl) [place] 584952-07-18 09:04:00 Test Item Value Reference Range Interpretation Comments Sodium Lvl (test code = Sodium Lvl) 134 135-145 [place] 584952-07-18 09:04:00 Test Item Value Reference Range Interpretation Comments Potassium Lvl (test code = Potassium 4.0 3.5-5.1 Lvl) [place] 584952-07-18 09:04:00 Test Item Value Reference Range Interpretation Comments Chloride Lvl (test code = Chloride Lvl) 102 95-109 [place] 584952-07-18 09:04:00 Test Item Value Reference Range Interpretation Comments CO2 (test code = CO2) 25 24-32 [place] 584952-07-18 09:04:00 Test Item Value Reference Range Interpretation Comments Calcium Lvl (test code = Calcium Lvl) 9.1 8.5-10.5 [place] 584952-07-18 09:04:00 Test Item Value Reference Range Interpretation Comments Total Protein (test code = Total 6.2 6.4-8.4 Protein) [place] 584952-07-18 09:04:00 Test Item Value Reference Range Interpretation Comments Albumin Lvl (test code = Albumin Lvl) 2.8 3.5-5.0 [place] 584952-07-18 09:04:00 Test Item Value Reference Range Interpretation Comments ALT (test code = ALT) 78 See_Comment [Auto mated message] The system which ge nerated this result transmit swathi reference range : <=65. The reference range was not used to interpr et this result as deny l/abnormal. [facility] [employer] [id number] 09:04:00 Test Item Value Reference Range Interpretation Comments AST (test code = AST) 117 See_Comment [Auto mated message] The system which ge nerated this result transmit swathi reference range : <=37. The reference range was not used to interpr et this result as deny l/abnormal. [facility] [employer] [id number] 09:04:00 Test Item Value Reference Range Interpretation Comments Alk Phos (test code = Alk Phos) 251 39-136 [facility] [employer] [id number] 09:04:00 Test Item Value Reference Range Interpretation Comments Bili Total (test code = Bili Total) 0.9 0.2-1.3 [facility] [employer] [id number] 09:04:00 Test Item Value Reference Range Interpretation Comments AGAP (test code = AGAP) 11.0 10.0-20.0 [facility] [employer] [id number] 09:04:00 Test Item Value Reference Range Interpretation Comments B/C Ratio (test code = B/C Ratio) 6 1 6-25 [facility] [employer] [id number] 09:04:00 Test Item Value Reference Range Interpretation Comments Globulin (test code = Globulin) 3.4 2.7-4.2 [facility] [employer] [id number] 09:04:00 Test Item Value Reference Range Interpretation Comments A/G Ratio (test code = A/G Ratio) 0.8 1 0.7-1.6 [facility] [employer] [id number] 09:04:00 Test Item Value Reference Range Interpretation Comments eGFR (test code = eGFR) 8 [facility] HospitalWtaosenFFEVATTJKU2773-77-85 09:04:00 Test Item Value Reference Range Interpretation Comments D-Dimer (test code = D-Dimer) 3.03 [facility] HospitalNwwggdvUKHDMOSBKB7132-35-23 09:04:00 Test Item Value Reference Range Interpretation Comments WBC (test code = WBC) 3.6 3.7-10.4 [facility] HospitalAzkxxuxSYFONUNADN7933-96-14 09:04:00 Test Item Value Reference Range Interpretation Comments RBC (test code = RBC) 2.07 4.70-6.10 [facility] CenterKtjdhqnNOJDPXENBB3152-19-45 09:04:00 Test Item Value Reference Range Interpretation Comments Hgb (test code = Hgb) 7.5 14.0-18.0 [facility] CenterCnjymzaPLHCLPOHWV0057-04-32 09:04:00 Test Item Value Reference Range Interpretation Comments Hct (test code = Hct) 22.0 42.0-54.0 [facility] CenterDbhfepvMDBRJUWJSI2077-17-32 09:04:00 Test Item Value Reference Range Interpretation Comments MCV (test code = MCV) 106.3 80.0-94.0 [place] 482272-07-18 09:04:00 Test Item Value Reference Range Interpretation Comments MCH (test code = MCH) 36.1 pg 27.0-31.0 [place] 482272-07-18 09:04:00 Test Item Value Reference Range Interpretation Comments MCHC (test code = MCHC) 33.9 32.0-36.0 [facility] CenterEiryrtvOIHAWJNUNG5241-27-86 09:04:00 Test Item Value Reference Range Interpretation Comments RDW (test code = RDW) 23.9 11.5-14.5 [facility] CenterSgodhkeUJYQXSSCNQ0452-13-13 09:04:00 Test Item Value Reference Range Interpretation Comments Platelet (test code = Platelet) 133 133-450 [facility] CenterRagsoenWDVMCBEMTR1578-27-73 09:04:00 Test Item Value Reference Range Interpretation Comments MPV (test code = MPV) 8.1 7.4-10.4 [place] 482272-07-18 09:04:00 Test Item Value Reference Range Interpretation Comments Segs (test code = Segs) 60.8 45.0-75.0 [facility] CenterFuzunzeWIGFGLEWPY6504-42-11 09:04:00 Test Item Value Reference Range Interpretation Comments Lymphocytes (test code = Lymphocytes) 22.3 20.0-40.0 [place] 482272-07-18 09:04:00 Test Item Value Reference Range Interpretation Comments Monocytes (test code = Monocytes) 13.9 2.0-12.0 [place] 482272-07-18 09:04:00 Test Item Value Reference Range Interpretation Comments Eosinophils (test code = 2.6 See_Comment [A utomated message] The Eosinophils) system which ge nerated this result tra nsmitted reference range : <=4.0. The reference r samantha was not used to int erpret this result as normal/abnormal . [facility] AntonioVzafcfnVKWJJAVMSE7861-96-11 09:04:00 Test Item Value Reference Range Interpretation Comments Basophils (test code = 0.4 See_Comment [Aut omated message] The Basophils) system which ge nerated this result tra nsmitted reference range : <=1.0. The reference r samantha was not used to int erpret this result as normal/abnormal . [facility] AntonioOdzmdoaUKKCJWTWEF0769-18-97 09:04:00 Test Item Value Reference Range Interpretation Comments Neutrophils # (test code = Neutrophils 2.2 1.5-8.1 #) [facility]TWADJBMHLT9528[facility]40-57 09:04:00 Test Item Value Reference Range Interpretation Comments Lymphocytes # (test code = Lymphocytes 0.8 1.0-5.5 #) [facility]QhecvjdGEMCWKHHVD6548-69-84 09:04:00 Test Item Value Reference Range Interpretation Comments Monocytes # (test code 0.5 See_Comment [Aut omated message] The = Monocytes #) system which generated this result tra nsmitted reference range : <=0.8. The reference r samantha was not used to int erpret this result as normal/abnormal . [facility] AntonioXeldoteWMFZKRDQZJ9391-44-39 09:04:00 Test Item Value Reference Range Interpretation Comments Eosinophils # (test code 0.1 See_Comment [A utomated message] The = Eosinophils #) system whic h generated this result tra nsmitted reference range : <=0.5. The reference r samantha was not used to int erpret this result as normal/abnormal . [facility] AntonioEmimyelTEZHTLDXKL1397-77-97 09:04:00 Test Item Value Reference Range Interpretation Comments Macrocyte (test code = 1+ *ABN*(12/15/21 Macrocyte) 4:04 AM) [facility] AntonioXimdhyfHQPUGAXDBS6755-05-07 09:04:00 Test Item Value Reference Range Interpretation Comments C-REACTIVE PROTEIN (test code = 25.1 C-REACTIVE PROTEIN) [facility] AntonioNbakhfaGIAIIFPIYG5048-93-55 09:04:00 Test Item Value Reference Range Interpretation Comments Vanco Lvl (test code = Vanco Lvl) 15.2 [facility] [place] 413222-07-18 09:04:00 Test Item Value Reference Range Interpretation Comments Glucose Lvl (test code = Glucose Lvl) 59 70-99 [place] 584952-07-18 09:04:00 Test Item Value Reference Range Interpretation Comments BUN (test code = BUN) 41 7-22 [place] [address]-07-18 09:04:00 Test Item Value Reference Range Interpretation Comments Creatinine Lvl (test code = Creatinine 7.00 0.50-1.40 Lvl) [place] 584952-07-18 09:04:00 Test Item Value Reference Range Interpretation Comments Sodium Lvl (test code = Sodium Lvl) 134 135-145 [place] 584952-07-18 09:04:00 Test Item Value Reference Range Interpretation Comments Potassium Lvl (test code = Potassium 4.0 3.5-5.1 Lvl) [place] 584952-07-18 09:04:00 Test Item Value Reference Range Interpretation Comments Chloride Lvl (test code = Chloride Lvl) 102 95-109 [place] 584952-07-18 09:04:00 Test Item Value Reference Range Interpretation Comments CO2 (test code = CO2) 25 24-32 [place] 584952-07-18 09:04:00 Test Item Value Reference Range Interpretation Comments Calcium Lvl (test code = Calcium Lvl) 9.1 8.5-10.5 [place] 584952-07-18 09:04:00 Test Item Value Reference Range Interpretation Comments Total Protein (test code = Total 6.2 6.4-8.4 Protein) [place] 584952-07-18 09:04:00 Test Item Value Reference Range Interpretation Comments Albumin Lvl (test code = Albumin Lvl) 2.8 3.5-5.0 [place] 584952-07-18 09:04:00 Test Item Value Reference Range Interpretation Comments ALT (test code = ALT) 78 See_Comment [Auto mated message] The system which ge nerated this result transmit swathi reference range : <=65. The reference range was not used to interpr et this result as deny l/abnormal. [place] 584952-07-18 09:04:00 Test Item Value Reference Range Interpretation Comments AST (test code = AST) 117 See_Comment [Auto mated message] The system which ge nerated this result transmit swathi reference range : <=37. The reference range was not used to interpr et this result as deny l/abnormal. [place] 584952-07-18 09:04:00 Test Item Value Reference Range Interpretation Comments Alk Phos (test code = Alk Phos) 251 39-136 [place] 584952-07-18 09:04:00 Test Item Value Reference Range Interpretation Comments Bili Total (test code = Bili Total) 0.9 0.2-1.3 [place] 584952-07-18 09:04:00 Test Item Value Reference Range Interpretation Comments AGAP (test code = AGAP) 11.0 10.0-20.0 [place] 584952-07-18 09:04:00 Test Item Value Reference Range Interpretation Comments B/C Ratio (test code = B/C Ratio) 6 1 6-25 [place] 584952-07-18 09:04:00 Test Item Value Reference Range Interpretation Comments Globulin (test code = Globulin) 3.4 2.7-4.2 [place] 584952-07-18 09:04:00 Test Item Value Reference Range Interpretation Comments A/G Ratio (test code = A/G Ratio) 0.8 1 0.7-1.6 [place] 584952-07-18 09:04:00 Test Item Value Reference Range Interpretation Comments eGFR (test code = eGFR) 8 [facility] CenterUfhchvcARQLGDPPCM8480-43-69 09:04:00 Test Item Value Reference Range Interpretation Comments D-Dimer (test code = D-Dimer) 3.03 [place] 482272-07-18 09:04:00 Test Item Value Reference Range Interpretation Comments WBC (test code = WBC) 3.6 3.7-10.4 [place] 482272-07-18 09:04:00 Test Item Value Reference Range Interpretation Comments RBC (test code = RBC) 2.07 4.70-6.10 [place] 482272-07-18 09:04:00 Test Item Value Reference Range Interpretation Comments Hgb (test code = Hgb) 7.5 14.0-18.0 [place] 482272-07-18 09:04:00 Test Item Value Reference Range Interpretation Comments Hct (test code = Hct) 22.0 42.0-54.0 [place] 482272-07-18 09:04:00 Test Item Value Reference Range Interpretation Comments MCV (test code = MCV) 106.3 80.0-94.0 [place] 482272-07-18 09:04:00 Test Item Value Reference Range Interpretation Comments MCH (test code = MCH) 36.1 pg 27.0-31.0 [place] 482272-07-18 09:04:00 Test Item Value Reference Range Interpretation Comments MCHC (test code = MCHC) 33.9 32.0-36.0 [place] 482272-07-18 09:04:00 Test Item Value Reference Range Interpretation Comments RDW (test code = RDW) 23.9 11.5-14.5 [place] 482272-07-18 09:04:00 Test Item Value Reference Range Interpretation Comments Platelet (test code = Platelet) 133 133-450 [place] 482272-07-18 09:04:00 Test Item Value Reference Range Interpretation Comments MPV (test code = MPV) 8.1 7.4-10.4 [place] 482272-07-18 09:04:00 Test Item Value Reference Range Interpretation Comments Segs (test code = Segs) 60.8 45.0-75.0 [place] 482272-07-18 09:04:00 Test Item Value Reference Range Interpretation Comments Lymphocytes (test code = Lymphocytes) 22.3 20.0-40.0 [place] 482272-07-18 09:04:00 Test Item Value Reference Range Interpretation Comments Monocytes (test code = Monocytes) 13.9 2.0-12.0 [place] [address]-07-18 09:04:00 Test Item Value Reference Range Interpretation Comments Eosinophils (test code = 2.6 See_Comment [A utomated message] The Eosinophils) system which ge nerated this result tra nsmitted reference range : <=4.0. The reference r samantha was not used to int erpret this result as normal/abnormal . [place] 482272-07-18 09:04:00 Test Item Value Reference Range Interpretation Comments Basophils (test code = 0.4 See_Comment [Aut omated message] The Basophils) system which ge nerated this result tra nsmitted reference range : <=1.0. The reference r samantha was not used to int erpret this result as normal/abnormal . [facility] CenterZnjjwrtCFGZBTNSRZ3471-48-94 09:04:00 Test Item Value Reference Range Interpretation Comments Neutrophils # (test code = Neutrophils 2.2 1.5-8.1 #) [facility] CenterBdbllzrEIMSUYATFF1933-32-50 09:04:00 Test Item Value Reference Range Interpretation Comments Lymphocytes # (test code = Lymphocytes 0.8 1.0-5.5 #) [facility] CenterGzffkzrYECZNDAEQV2732-38-80 09:04:00 Test Item Value Reference Range Interpretation Comments Monocytes # (test code 0.5 See_Comment [Aut omated message] The = Monocytes #) system which generated this result tra nsmitted reference range : <=0.8. The reference r samantha was not used to int erpret this result as normal/abnormal . [facility] [id number] 09:04:00 Test Item Value Reference Range Interpretation Comments Eosinophils # (test code 0.1 See_Comment [A utomated message] The = Eosinophils #) system whic h generated this result tra nsmitted reference range : <=0.5. The reference r samantha was not used to int erpret this result as normal/abnormal . [facility] [id number] 09:04:00 Test Item Value Reference Range Interpretation Comments Macrocyte (test code = 1+ *ABN*(12/15/21 Macrocyte) 4:04 AM) [facility] - [id number] 00:29:00 Test Item Value Reference Range Interpretation Comments MRSA by PCR (test Negative (12/14/21 7:29 code = MRSA by PCR) PM) [facility] - [id number] 00:29:00 Test Item Value Reference Range Interpretation Comments MRSA by PCR (test Negative (12/14/21 7:29 code = MRSA by PCR) PM) [facility] Antonio[facility] - [id number] 00:29:00 Test Item Value Reference Range Interpretation Comments MRSA by PCR (test Negative (12/14/21 7:29 code = MRSA by PCR) PM) [facility] [id number] 23:56:00 Test Item Value Reference Range Interpretation Comments Source Respiratory Nasophrngl Swb Panel PCR (test code = *NA*(12/14/21 6:56 PM) Source Respiratory Panel PCR) [facility]annIAL[facility] [id number] 23:56:00 Test Item Value Reference Range Interpretation Comments Influenza A PCR (test Negative (12/14/21 6:56 code = Influenza A PCR) PM) [facility]annIAL[facility] [id number] 23:56:00 Test Item Value Reference Range Interpretation Comments Influenza B PCR (test Negative (12/14/21 6:56 code = Influenza B PCR) PM) [facility] [id number] 23:56:00 Test Item Value Reference Range Interpretation Comments RSV PCR (test code = Negative (12/14/21 6:56 RSV PCR) PM) [facility] [id number] 23:56:00 Test Item Value Reference Range Interpretation Comments Source Respiratory Nasophrngl Swb Panel PCR (test code = *NA*(12/14/21 6:56 PM) Source Respiratory Panel PCR) [facility] [id number] 23:56:00 Test Item Value Reference Range Interpretation Comments Influenza A PCR (test Negative (12/14/21 6:56 code = Influenza A PCR) PM) [facility] [id number] 23:56:00 Test Item Value Reference Range Interpretation Comments Influenza B PCR (test Negative (12/14/21 6:56 code = Influenza B PCR) PM) [facility] [id number] 23:56:00 Test Item Value Reference Range Interpretation Comments RSV PCR (test code = Negative (12/14/21 6:56 RSV PCR) PM) [facility] [id number] 23:56:00 Test Item Value Reference Range Interpretation Comments Source Respiratory Nasophrngl Swb Panel PCR (test code = *NA*(12/14/21 6:56 PM) Source Respiratory Panel PCR) [facility] [id number] 23:56:00 Test Item Value Reference Range Interpretation Comments Influenza A PCR (test Negative (12/14/21 6:56 code = Influenza A PCR) PM) [facility] [id number] 23:56:00 Test Item Value Reference Range Interpretation Comments Influenza B PCR (test Negative (12/14/21 6:56 code = Influenza B PCR) PM) [facility] [id number] 23:56:00 Test Item Value Reference Range Interpretation Comments RSV PCR (test code = Negative (12/14/21 6:56 RSV PCR) PM) [facility] [id number] 23:55:00 Test Item Value Reference Range Interpretation Comments BNP (test code = BNP) 1994 [facility]Ch[facility] [id number] 23:55:00 Test Item Value Reference Range Interpretation Comments Procalcitonin Lvl (test 0.80 See_Comment [Au tomated message] code = Procalcitonin Lvl) e system which generated this result transmitted ref erence range: <=0.10. The reference range was not used to interpr et this result as normal/abnormal . [facility] [id number] 23:55:00 Test Item Value Reference Range Interpretation Comments BNP (test code = BNP) 1994 [facility]Ch[facility] [id number] 23:55:00 Test Item Value Reference Range Interpretation Comments Procalcitonin Lvl (test 0.80 See_Comment [Au tomated message] code = Procalcitonin Lvl) e system which generated this result transmitted ref erence range: <=0.10. The reference range was not used to interpr et this result as normal/abnormal . [facility] HospitalWinston Pharmaceuticals2022-07-17 23:55:00 Test Item Value Reference Range Interpretation Comments BNP (test code = BNP) 1994 [facility] [id number] 23:55:00 Test Item Value Reference Range Interpretation Comments Procalcitonin Lvl (test 0.80 See_Comment [Au tomated message] code = Procalcitonin Lvl) Th e system which generated this result transmitted ref erence range: <=0.10. The reference range was not used to interpr et this result as normal/abnormal . [facility] HospitalWin[facility] Pharmaceuticals2022-07-17 21:26:00 Test Item Value Reference Range Interpretation Comments HS Troponin I 1 Hr (test code = HS 389 Troponin I 1 Hr) [facility] HospitalTimelinerAC [id number] 21:26:00 Test Item Value Reference Range Interpretation Comments HS Troponin I 0 to 1 Hour Delta (test 49 1 code = HS Troponin I 0 to 1 Hour Delta) [facility] HospitalTimelinerAC [id number] 21:26:00 Test Item Value Reference Range Interpretation Comments HS Troponin I 1 Hr (test code = HS 389 Troponin I 1 Hr) [facility] HospitalTimelinerAC [id number] 21:26:00 Test Item Value Reference Range Interpretation Comments HS Troponin I 0 to 1 Hour Delta (test 49 1 code = HS Troponin I 0 to 1 Hour Delta) [facility] HospitalTimel[facility] [id number] 21:26:00 Test Item Value Reference Range Interpretation Comments HS Troponin I 1 Hr (test code = HS 389 Troponin I 1 Hr) [facility] HospitalTimeliner [id number] 21:26:00 Test Item Value Reference Range Interpretation Comments HS Troponin I 0 to 1 Hour Delta (test 49 1 code = HS Troponin I 0 to 1 Hour Delta) [facility] HospitalTimel[facility] [id number] 20:10:00 Test Item Value Reference Range Interpretation Comments HS Troponin I Baseline (test code = HS 340 Troponin I Baseline) [facility] [employer] [id number] 20:10:00 Test Item Value Reference Range Interpretation Comments Glucose Lvl (test code = Glucose Lvl) 60 70-99 [facility] [id number] 20:10:00 Test Item Value Reference Range Interpretation Comments BUN (test code = BUN) 35 7-22 [facility] [id number] 20:10:00 Test Item Value Reference Range Interpretation Comments Creatinine Lvl (test code = Creatinine 6.10 0.50-1.40 Lvl) [facility] [id number] 20:10:00 Test Item Value Reference Range Interpretation Comments Sodium Lvl (test code = Sodium Lvl) 139 135-145 [facility] [employer] [id number] 20:10:00 Test Item Value Reference Range Interpretation Comments Potassium Lvl (test code = Potassium 3.1 3.5-5.1 Lvl) [facility] [id number] 20:10:00 Test Item Value Reference Range Interpretation Comments Chloride Lvl (test code = Chloride Lvl) 105 95-109 [facility]2022-07-17 20:10:00 Test Item Value Reference Range Interpretation Comments CO2 (test code = CO2) 28 24-32 [place] [id number] 20:10:00 Test Item Value Reference Range Interpretation Comments Calcium Lvl (test code = Calcium Lvl) 8.1 8.5-10.5 [place] [id number] 20:10:00 Test Item Value Reference Range Interpretation Comments Total Protein (test code = Total 5.8 6.4-8.4 Protein) [place] [id number] 20:10:00 Test Item Value Reference Range Interpretation Comments Albumin Lvl (test code = Albumin Lvl) 2.6 3.5-5.0 [facility] [id number] 20:10:00 Test Item Value Reference Range Interpretation Comments ALT (test code = ALT) 74 See_Comment [Auto mated message] The system which ge nerated this result transmit swathi reference range : <=65. The reference range was not used to interpr et this result as deny l/abnormal. [facility] AntonioCentrePath [id number] 20:10:00 Test Item Value Reference Range Interpretation Comments AST (test code = AST) 117 See_Comment [Auto mated message] The system which ge nerated this result transmit swathi reference range : <=37. The reference range was not used to interpr et this result as deny l/abnormal. [facility]Ch[facility] [id number] 20:10:00 Test Item Value Reference Range Interpretation Comments Alk Phos (test code = Alk Phos) 241 39-136 [facility]Ch[facility] [id number] 20:10:00 Test Item Value Reference Range Interpretation Comments Bili Total (test code = Bili Total) 0.8 0.2-1.3 [facility] Antonio[facility] [id number] 20:10:00 Test Item Value Reference Range Interpretation Comments AGAP (test code = AGAP) 9.1 10.0-20.0 [facility] Antonio[facility] [id number] 20:10:00 Test Item Value Reference Range Interpretation Comments B/C Ratio (test code = B/C Ratio) 6 1 6-25 [facility] Antonio[facility] [id number] 20:10:00 Test Item Value Reference Range Interpretation Comments Globulin (test code = Globulin) 3.2 2.7-4.2 [facility] [id number] 20:10:00 Test Item Value Reference Range Interpretation Comments A/G Ratio (test code = A/G Ratio) 0.8 1 0.7-1.6 [facility] [id number] 20:10:00 Test Item Value Reference Range Interpretation Comments eGFR (test code = eGFR) 9 [facility] CenterAhbnctuYDJBLFFHUG3973-02-09 20:10:00 Test Item Value Reference Range Interpretation Comments WBC (test code = WBC) 4.3 3.7-10.4 [facility] CenterVtvfspfGXXFWUZMGJ1932-16-24 20:10:00 Test Item Value Reference Range Interpretation Comments RBC (test code = RBC) 2.17 4.70-6.10 [facility] CenterWlvfuraPBZQAJHBLU1069-42-24 20:10:00 Test Item Value Reference Range Interpretation Comments Hgb (test code = Hgb) 7.7 14.0-18.0 [facility] [id number] 20:10:00 Test Item Value Reference Range Interpretation Comments Hct (test code = Hct) 22.9 42.0-54.0 [facility] CenterWzwkvigVLLMKHDYGW0901-39-28 20:10:00 Test Item Value Reference Range Interpretation Comments MCV (test code = MCV) 105.9 80.0-94.0 [facility] CenterGdfasphHGWRFDHLHO3040-54-79 20:10:00 Test Item Value Reference Range Interpretation Comments MCH (test code = MCH) 35.4 pg 27.0-31.0 [facility] [id number] 20:10:00 Test Item Value Reference Range Interpretation Comments MCHC (test code = MCHC) 33.4 32.0-36.0 [place] 482272-07-17 20:10:00 Test Item Value Reference Range Interpretation Comments RDW (test code = RDW) 23.6 11.5-14.5 [facility] CenterRjantwtDCBDECDEOT1303-13-89 20:10:00 Test Item Value Reference Range Interpretation Comments Platelet (test code = Platelet) 146 133-450 [facility] [id number] 20:10:00 Test Item Value Reference Range Interpretation Comments MPV (test code = MPV) 8.0 7.4-10.4 [facility] [id number] 20:10:00 Test Item Value Reference Range Interpretation Comments Plt Morph (test code = Normal (12/14/21 3:10 Plt Morph) PM) [facility] CenterOkvonmwVIALBWTFHS0134-28-22 20:10:00 Test Item Value Reference Range Interpretation Comments Segs (test code = Segs) 67.4 45.0-75.0 [facility] CenterFkelvaqWEEKCTDTVF3423-51-75 20:10:00 Test Item Value Reference Range Interpretation Comments Lymphocytes (test code = Lymphocytes) 12.8 20.0-40.0 [facility] CenterSmmjscaMXFBDMNSZQ8876-34-46 20:10:00 Test Item Value Reference Range Interpretation Comments Monocytes (test code = Monocytes) 15.1 2.0-12.0 [facility] CenterJtqnyvjERCCJECOEK9135-43-91 20:10:00 Test Item Value Reference Range Interpretation Comments Eosinophils (test code = 4.1 See_Comment [A utomated message] The Eosinophils) system which ge nerated this result tra nsmitted reference range : <=4.0. The reference r samantha was not used to int erpret this result as normal/abnormal . [facility] CenterJymtmqlGLVUSWCRYK2273-55-26 20:10:00 Test Item Value Reference Range Interpretation Comments Basophils (test code = 0.6 See_Comment [Aut omated message] The Basophils) system which ge nerated this result tra nsmitted reference range : <=1.0. The reference r samantha was not used to int erpret this result as normal/abnormal . [facility] CenterUlfbwgaKSYWJNBZHI4635-57-29 20:10:00 Test Item Value Reference Range Interpretation Comments Neutrophils # (test code = Neutrophils 2.9 1.5-8.1 #) [facility] CenterMdklcigHREXGDPOAE9531-29-48 20:10:00 Test Item Value Reference Range Interpretation Comments Lymphocytes # (test code = Lymphocytes 0.5 1.0-5.5 #) [place] 482272-07-17 20:10:00 Test Item Value Reference Range Interpretation Comments Monocytes # (test code 0.6 See_Comment [Aut omated message] The = Monocytes #) system which generated this result tra nsmitted reference range : <=0.8. The reference r samantha was not used to int erpret this result as normal/abnormal . [facility] CenterGwfaukhXLAELCKYGE0395-55-01 20:10:00 Test Item Value Reference Range Interpretation Comments Eosinophils # (test code 0.2 See_Comment [A utomated message] The = Eosinophils #) system [employer] h generated this result tra nsmitted reference range : <=0.5. The reference r samantha was not used to int erpret this result as normal/abnormal . [facility]ZisgpyxLJLHJFVKHL3204-00-54 20:10:00 Test Item Value Reference Range Interpretation Comments Anisocyte (test code = 1+ *ABN*(12/14/21 Anisocyte) 3:10 PM) [facility] H[id number] 20:10:00 Test Item Value Reference Range Interpretation Comments Macrocyte (test code = 1+ *ABN*(12/14/21 Macrocyte) 3:10 PM) [facility] AntonioEssimhqBTOJEKIPIS5209-29-65 20:10:00 Test Item Value Reference Range Interpretation Comments Coronavirus (COVID-19) Detected MANUEL (test code = 4*ABN*(12/14/21 3:10 Coronavirus (COVID-19) PM) MANUEL) [facility] AntonioCARDIAC [id number] 20:10:00 Test Item Value Reference Range Interpretation Comments HS Troponin I Baseline (test code = HS 340 Troponin I Baseline) [facility] AntonioCent[facility] [id number] 20:10:00 Test Item Value Reference Range Interpretation Comments Glucose Lvl (test code = Glucose Lvl) 60 70-99 [facility]2022-07-17 20:10:00 Test Item Value Reference Range Interpretation Comments BUN (test code = BUN) 35 7-22 [facility] [id number] 20:10:00 Test Item Value Reference Range Interpretation Comments Creatinine Lvl (test code = Creatinine 6.10 0.50-1.40 Lvl) [facility] [id number] 20:10:00 Test Item Value Reference Range Interpretation Comments Sodium Lvl (test code = Sodium Lvl) 139 135-145 [facility]2022-07-17 20:10:00 Test Item Value Reference Range Interpretation Comments Potassium Lvl (test code = Potassium 3.1 3.5-5.1 Lvl) [facility] [id number] 20:10:00 Test Item Value Reference Range Interpretation Comments Chloride Lvl (test code = Chloride Lvl) 105 95-109 [facility] [id number] 20:10:00 Test Item Value Reference Range Interpretation Comments CO2 (test code = CO2) 28 24-32 [facility] [id number] 20:10:00 Test Item Value Reference Range Interpretation Comments Calcium Lvl (test code = Calcium Lvl) 8.1 8.5-10.5 [facility] [id number] 20:10:00 Test Item Value Reference Range Interpretation Comments Total Protein (test code = Total 5.8 6.4-8.4 Protein) [facility] [id number] 20:10:00 Test Item Value Reference Range Interpretation Comments Albumin Lvl (test code = Albumin Lvl) 2.6 3.5-5.0 [facility] [id number] 20:10:00 Test Item Value Reference Range Interpretation Comments ALT (test code = ALT) 74 See_Comment [Auto mated message] The system which ge nerated this result transmit swathi reference range : <=65. The reference range was not used to interpr et this result as deny l/abnormal. [facility] [id number] 20:10:00 Test Item Value Reference Range Interpretation Comments AST (test code = AST) 117 See_Comment [Auto mated message] The system which ge nerated this result transmit swathi reference range : <=37. The reference range was not used to interpr et this result as deny l/abnormal. [facility] [employer] [id number] 20:10:00 Test Item Value Reference Range Interpretation Comments Alk Phos (test code = Alk Phos) 241 39-136 [facility] [id number] 20:10:00 Test Item Value Reference Range Interpretation Comments Bili Total (test code = Bili Total) 0.8 0.2-1.3 [facility] [id number] 20:10:00 Test Item Value Reference Range Interpretation Comments AGAP (test code = AGAP) 9.1 10.0-20.0 [facility] [id number] 20:10:00 Test Item Value Reference Range Interpretation Comments B/C Ratio (test code = B/C Ratio) 6 1 6-25 [facility]2022-07-17 20:10:00 Test Item Value Reference Range Interpretation Comments Globulin (test code = Globulin) 3.2 2.7-4.2 [place] 584952-07-17 20:10:00 Test Item Value Reference Range Interpretation Comments A/G Ratio (test code = A/G Ratio) 0.8 1 0.7-1.6 [place] 584952-07-17 20:10:00 Test Item Value Reference Range Interpretation Comments eGFR (test code = eGFR) 9 [facility] CenterGghtyobANAZJORWHG9918-14-35 20:10:00 Test Item Value Reference Range Interpretation Comments WBC (test code = WBC) 4.3 3.7-10.4 [place] 482272-07-17 20:10:00 Test Item Value Reference Range Interpretation Comments RBC (test code = RBC) 2.17 4.70-6.10 [facility] CenterVamnhnsUOZYEDFRHZ8304-27-58 20:10:00 Test Item Value Reference Range Interpretation Comments Hgb (test code = Hgb) 7.7 14.0-18.0 [place] 482272-07-17 20:10:00 Test Item Value Reference Range Interpretation Comments Hct (test code = Hct) 22.9 42.0-54.0 [facility] CenterWdsyzsjCLCKLGODOT9291-61-42 20:10:00 Test Item Value Reference Range Interpretation Comments MCV (test code = MCV) 105.9 80.0-94.0 [facility] CenterOwifbgdNLGXPLKUTI0565-40-08 20:10:00 Test Item Value Reference Range Interpretation Comments MCH (test code = MCH) 35.4 pg 27.0-31.0 [facility] CenterMlxhcmzGQVDZDJZHY5960-00-87 20:10:00 Test Item Value Reference Range Interpretation Comments MCHC (test code = MCHC) 33.4 32.0-36.0 [place] 482272-07-17 20:10:00 Test Item Value Reference Range Interpretation Comments RDW (test code = RDW) 23.6 11.5-14.5 [place] 482272-07-17 20:10:00 Test Item Value Reference Range Interpretation Comments Platelet (test code = Platelet) 146 133-450 [facility] CenterIthabojEORROIVZJD8521-30-03 20:10:00 Test Item Value Reference Range Interpretation Comments MPV (test code = MPV) 8.0 7.4-10.4 [place] 482272-07-17 20:10:00 Test Item Value Reference Range Interpretation Comments Plt Morph (test code = Normal (12/14/21 3:10 Plt Morph) PM) [place] 482272-07-17 20:10:00 Test Item Value Reference Range Interpretation Comments Segs (test code = Segs) 67.4 45.0-75.0 [place] 482272-07-17 20:10:00 Test Item Value Reference Range Interpretation Comments Lymphocytes (test code = Lymphocytes) 12.8 20.0-40.0 [place] 482272-07-17 20:10:00 Test Item Value Reference Range Interpretation Comments Monocytes (test code = Monocytes) 15.1 2.0-12.0 [place] 482272-07-17 20:10:00 Test Item Value Reference Range Interpretation Comments Eosinophils (test code = 4.1 See_Comment [A utomated message] The Eosinophils) system which ge nerated this result tra nsmitted reference range : <=4.0. The reference r samantha was not used to int erpret this result as normal/abnormal . [facility] CenterLoaahcsIFENQMRNLD9672-29-02 20:10:00 Test Item Value Reference Range Interpretation Comments Basophils (test code = 0.6 See_Comment [Aut omated message] The Basophils) system which ge nerated this result tra nsmitted reference range : <=1.0. The reference r samantha was not used to int erpret this result as normal/abnormal . [facility] CenterSkxbgglDFAAPFCNQZ6280-98-14 20:10:00 Test Item Value Reference Range Interpretation Comments Neutrophils # (test code = Neutrophils 2.9 1.5-8.1 #) [place] 482272-07-17 20:10:00 Test Item Value Reference Range Interpretation Comments Lymphocytes # (test code = Lymphocytes 0.5 1.0-5.5 #) [place] 482272-07-17 20:10:00 Test Item Value Reference Range Interpretation Comments Monocytes # (test code 0.6 See_Comment [Aut omated message] The = Monocytes #) system which generated this result tra nsmitted reference range : <=0.8. The reference r samantha was not used to int erpret this result as normal/abnormal . [facility] AntonioYgbosmxBBIZVEFOCI6902-41-86 20:10:00 Test Item Value Reference Range Interpretation Comments Eosinophils # (test code 0.2 See_Comment [A utomated message] The = Eosinophils #) system whic h generated this result tra nsmitted reference range : <=0.5. The reference r samantha was not used to int erpret this result as normal/abnormal . [facility] AntonioHguikngQXIYXEWXYH2873-12-43 20:10:00 Test Item Value Reference Range Interpretation Comments Anisocyte (test code = 1+ *ABN*(12/14/21 Anisocyte) 3:10 PM) [facility]WqlaqytLTYABQIRTJ7130-34-36 20:10:00 Test Item Value Reference Range Interpretation Comments Macrocyte (test code = 1+ *ABN*(12/14/21 Macrocyte) 3:10 PM) [facility] AntonioEtfkiqjZSWXZCBAYW7040-29-26 20:10:00 Test Item Value Reference Range Interpretation Comments Coronavirus (COVID-19) Detected MANUEL (test code = 4*ABN*(12/14/21 3:10 Coronavirus (COVID-19) PM) MANUEL) [facility] AntonioCARD[facility]AC [id number] 20:10:00 Test Item Value Reference Range Interpretation Comments HS Troponin I Baseline (test code = HS 340 Troponin I Baseline) [facility] [id number] 20:10:00 Test Item Value Reference Range Interpretation Comments Glucose Lvl (test code = Glucose Lvl) 60 70-99 [facility] [id number] 20:10:00 Test Item Value Reference Range Interpretation Comments BUN (test code = BUN) 35 7-22 [facility] [id number] 20:10:00 Test Item Value Reference Range Interpretation Comments Creatinine Lvl (test code = Creatinine 6.10 0.50-1.40 Lvl) [facility] [id number] 20:10:00 Test Item Value Reference Range Interpretation Comments Sodium Lvl (test code = Sodium Lvl) 139 135-145 [facility] [id number] 20:10:00 Test Item Value Reference Range Interpretation Comments Potassium Lvl (test code = Potassium 3.1 3.5-5.1 Lvl) [facility] [id number] 20:10:00 Test Item Value Reference Range Interpretation Comments Chloride Lvl (test code = Chloride Lvl) 105 95-109 [facility] [id number] 20:10:00 Test Item Value Reference Range Interpretation Comments CO2 (test code = CO2) 28 24-32 [place] [id number] 20:10:00 Test Item Value Reference Range Interpretation Comments Calcium Lvl (test code = Calcium Lvl) 8.1 8.5-10.5 [facility] [id number] 20:10:00 Test Item Value Reference Range Interpretation Comments Total Protein (test code = Total 5.8 6.4-8.4 Protein) [facility] [id number] 20:10:00 Test Item Value Reference Range Interpretation Comments Albumin Lvl (test code = Albumin Lvl) 2.6 3.5-5.0 [facility] [id number] 20:10:00 Test Item Value Reference Range Interpretation Comments ALT (test code = ALT) 74 See_Comment [Auto mated message] The system which ge nerated this result transmit swathi reference range : <=65. The reference range was not used to interpr et this result as deny l/abnormal. [facility] [id number] 20:10:00 Test Item Value Reference Range Interpretation Comments AST (test code = AST) 117 See_Comment [Auto mated message] The system which ge nerated this result transmit swathi reference range : <=37. The reference range was not used to interpr et this result as deyn l/abnormal. [facility] [id number] 20:10:00 Test Item Value Reference Range Interpretation Comments Alk Phos (test code = Alk Phos) 241 39-136 [facility] [id number] 20:10:00 Test Item Value Reference Range Interpretation Comments Bili Total (test code = Bili Total) 0.8 0.2-1.3 [facility] [id number] 20:10:00 Test Item Value Reference Range Interpretation Comments AGAP (test code = AGAP) 9.1 10.0-20.0 [facility] [id number] 20:10:00 Test Item Value Reference Range Interpretation Comments B/C Ratio (test code = B/C Ratio) 6 1 6-25 [facility]2022-07-17 20:10:00 Test Item Value Reference Range Interpretation Comments Globulin (test code = Globulin) 3.2 2.7-4.2 [facility]2022-07-17 20:10:00 Test Item Value Reference Range Interpretation Comments A/G Ratio (test code = A/G Ratio) 0.8 1 0.7-1.6 [facility]2022-07-17 20:10:00 Test Item Value Reference Range Interpretation Comments eGFR (test code = eGFR) 9 [facility] CenterXtkbaixNYWHPFFTIY0753-56-45 20:10:00 Test Item Value Reference Range Interpretation Comments WBC (test code = WBC) 4.3 3.7-10.4 [facility] CenterNycexyhYFLVKURVEE7934-02-56 20:10:00 Test Item Value Reference Range Interpretation Comments RBC (test code = RBC) 2.17 4.70-6.10 [facility] CenterIekkavsHCHTSXTKTO2022-30-86 20:10:00 Test Item Value Reference Range Interpretation Comments Hgb (test code = Hgb) 7.7 14.0-18.0 [facility] CenterXhlyscvSHXQLXFDKR4288-97-71 20:10:00 Test Item Value Reference Range Interpretation Comments Hct (test code = Hct) 22.9 42.0-54.0 [facility] CenterHcjqqkeKNEXZFEZUB3300-20-26 20:10:00 Test Item Value Reference Range Interpretation Comments MCV (test code = MCV) 105.9 80.0-94.0 [facility] CenterQkkumscORBBHSCUNU6825-35-99 20:10:00 Test Item Value Reference Range Interpretation Comments MCH (test code = MCH) 35.4 pg 27.0-31.0 [facility] CenterAmtvsdoHLVTBGWRSS8870-67-70 20:10:00 Test Item Value Reference Range Interpretation Comments MCHC (test code = MCHC) 33.4 32.0-36.0 [facility] CenterLnfailvVKGZXSEXUA3848-73-37 20:10:00 Test Item Value Reference Range Interpretation Comments RDW (test code = RDW) 23.6 11.5-14.5 [facility] CenterNkfpzsxZMDTJDOAKB8233-47-95 20:10:00 Test Item Value Reference Range Interpretation Comments Platelet (test code = Platelet) 146 133-450 [facility] CenterVmjevcrQLAOOJOWGF6624-72-62 20:10:00 Test Item Value Reference Range Interpretation Comments MPV (test code = MPV) 8.0 7.4-10.4 [facility] CenterUrprsbkJHYKELJQCW6900-92-67 20:10:00 Test Item Value Reference Range Interpretation Comments Plt Morph (test code = Normal (12/14/21 3:10 Plt Morph) PM) [facility] CenterEvimofgXWJVOQFDXT0277-51-81 20:10:00 Test Item Value Reference Range Interpretation Comments Segs (test code = Segs) 67.4 45.0-75.0 [facility] CenterLvegwkmXCIEUEKAHM5245-87-84 20:10:00 Test Item Value Reference Range Interpretation Comments Lymphocytes (test code = Lymphocytes) 12.8 20.0-40.0 [facility] CenterOadabsrXZBHHQXXKX1302-82-50 20:10:00 Test Item Value Reference Range Interpretation Comments Monocytes (test code = Monocytes) 15.1 2.0-12.0 [facility] CenterDshrlqcVWGDUZPFNI5859-74-34 20:10:00 Test Item Value Reference Range Interpretation Comments Eosinophils (test code = 4.1 See_Comment [A utomated message] The Eosinophils) system which ge nerated this result tra nsmitted reference range : <=4.0. The reference r samantha was not used to int erpret this result as normal/abnormal . [facility] CenterGshzcudXYBIBZNLWR8259-95-14 20:10:00 Test Item Value Reference Range Interpretation Comments Basophils (test code = 0.6 See_Comment [Aut omated message] The Basophils) system which ge nerated this result tra nsmitted reference range : <=1.0. The reference r samantha was not used to int erpret this result as normal/abnormal . [facility] CenterTzcwmdhICBTFWNPUO0077-32-98 20:10:00 Test Item Value Reference Range Interpretation Comments Neutrophils # (test code = Neutrophils 2.9 1.5-8.1 #) [facility] CenterAjkqxseFRYVKXXFSJ6588-66-50 20:10:00 Test Item Value Reference Range Interpretation Comments Lymphocytes # (test code = Lymphocytes 0.5 1.0-5.5 #) [place] [id number] 20:10:00 Test Item Value Reference Range Interpretation Comments Monocytes # (test code 0.6 See_Comment [Aut omated message] The = Monocytes #) system which generated this result tra nsmitted reference range : <=0.8. The reference r samantha was not used to int erpret this result as normal/abnormal . [facility] CenterRlesittLUYRIRVRAX8421-98-80 20:10:00 Test Item Value Reference Range Interpretation Comments Eosinophils # (test code 0.2 See_Comment [A utomated message] The = Eosinophils #) system whic h generated this result tra nsmitted reference range : <=0.5. The reference r samantha was not used to int erpret this result as normal/abnormal . [facility] CenterBismpzyNXOSMXEWGC7284-85-27 20:10:00 Test Item Value Reference Range Interpretation Comments Anisocyte (test code = 1+ *ABN*(12/14/21 Anisocyte) 3:10 PM) [facility] CenterIygrhhdZWZNWAWUCG4997-25-93 20:10:00 Test Item Value Reference Range Interpretation Comments Macrocyte (test code = 1+ *ABN*(12/14/21 Macrocyte) 3:10 PM) [facility] AntonioLyladgdHKLOVHPMCD1257-37-98 20:10:00 Test Item Value Reference Range Interpretation Comments Coronavirus (COVID-19) Detected MANUEL (test code = 4*ABN*(12/14/21 3:10 Coronavirus (COVID-19) PM) MANUEL) [facility] AND [id number] 01:43:00 Test Item Value Reference Range Interpretation Comments Occult Bld Stl (test Negative (12/03/21 8:43 code = Occult Bld Stl) PM) [facility] AND [id number] 01:43:00 Test Item Value Reference Range Interpretation Comments Occult Bld Stl (test Negative (12/03/21 8:43 code = Occult Bld Stl) PM) [facility] AND [id number] 01:43:00 Test Item Value Reference Range Interpretation Comments Occult Bld Stl (test Negative (12/03/21 8:43 code = Occult Bld Stl) PM) [facility] [employer] [facility] [id number] 01:29:00 Test Item Value Reference Range Interpretation Comments RBC product (test code Product available = RBC product) 2(12/03/21 8:29 PM) [facility] [place] [facility] [id number] 01:29:00 Test Item Value Reference Range Interpretation Comments RBC product (test code Product available = RBC product) 2(12/03/21 8:29 PM) [facility] [id number] 01:29:00 Test Item Value Reference Range Interpretation Comments RBC product (test code Product available = RBC product) 2(12/03/21 8:29 PM) [facility] [id number] 00:36:00 Test Item Value Reference Range Interpretation Comments ABO/Rh (test code = ABO/Rh) AB POS [facility] [id number] 00:36:00 Test Item Value Reference Range Interpretation Comments Antibody Scrn (test Negative (12/03/21 7:36 code = Antibody Scrn) PM) [facility] [employer] [id number] 00:36:00 Test Item Value Reference Range Interpretation Comments Glucose Lvl (test code = Glucose Lvl) 143 70-99 [facility] [employer] [id number] 00:36:00 Test Item Value Reference Range Interpretation Comments BUN (test code = BUN) 39 7-22 [facility] [employer] [id number] 00:36:00 Test Item Value Reference Range Interpretation Comments Creatinine Lvl (test code = Creatinine 5.46 0.50-1.40 Lvl) [facility] [employer] [id number] 00:36:00 Test Item Value Reference Range Interpretation Comments Sodium Lvl (test code = Sodium Lvl) 136 135-145 [facility] [employer] [id number] 00:36:00 Test Item Value Reference Range Interpretation Comments Potassium Lvl (test code = Potassium 4.2 3.5-5.1 Lvl) [facility] [employer] [id number] 00:36:00 Test Item Value Reference Range Interpretation Comments Chloride Lvl (test code = Chloride Lvl) 100 95-109 [facility] [employer] [id number] 00:36:00 Test Item Value Reference Range Interpretation Comments CO2 (test code = CO2) 27 24-32 [facility] [employer] [id number] 00:36:00 Test Item Value Reference Range Interpretation Comments Calcium Lvl (test code = Calcium Lvl) 8.9 8.5-10.5 [facility] [employer] [id number] 00:36:00 Test Item Value Reference Range Interpretation Comments AGAP (test code = AGAP) 13.2 10.0-20.0 [facility]2022-07-07 00:36:00 Test Item Value Reference Range Interpretation Comments eGFR (test code = eGFR) 10 [facility] CenterEifegjgZKWTRTURYN5413-82-77 00:36:00 Test Item Value Reference Range Interpretation Comments WBC (test code = WBC) 2.5 3.7-10.4 [facility] CenterYimhssnPSGIZXKUDM2547-80-78 00:36:00 Test Item Value Reference Range Interpretation Comments RBC (test code = RBC) 1.97 4.70-6.10 [facility] CenterEjruhmyTGSRODMSCD5720-78-50 00:36:00 Test Item Value Reference Range Interpretation Comments Hgb (test code = Hgb) 7.1 14.0-18.0 [place] 482272-07-07 00:36:00 Test Item Value Reference Range Interpretation Comments Hct (test code = Hct) 20.6 42.0-54.0 [facility] CenterXwlxirnXMXHORKRFE8841-35-82 00:36:00 Test Item Value Reference Range Interpretation Comments MCV (test code = MCV) 105.0 80.0-94.0 [facility] CenterJoecrcfBODEGCDASQ2995-32-36 00:36:00 Test Item Value Reference Range Interpretation Comments MCH (test code = MCH) 36.2 pg 27.0-31.0 [facility] CenterHzhkildXHVCAUHHGV5148-83-43 00:36:00 Test Item Value Reference Range Interpretation Comments MCHC (test code = MCHC) 34.5 32.0-36.0 [facility] CenterJndmgnjHRWHENFZJT6162-59-79 00:36:00 Test Item Value Reference Range Interpretation Comments RDW (test code = RDW) 21.1 11.5-14.5 [place] 482272-07-07 00:36:00 Test Item Value Reference Range Interpretation Comments Platelet (test code = Platelet) 136 133-450 [facility] CenterElfgpczHZLHEIHAWK6468-84-06 00:36:00 Test Item Value Reference Range Interpretation Comments MPV (test code = MPV) 8.7 7.4-10.4 [place] 482272-07-07 00:36:00 Test Item Value Reference Range Interpretation Comments Segs (test code = Segs) 59.5 45.0-75.0 [facility] CenterSdvdxmkGLANPYJJPB1056-95-73 00:36:00 Test Item Value Reference Range Interpretation Comments Lymphocytes (test code = Lymphocytes) 25.2 20.0-40.0 [facility] CenterHkmfabzDGKHNZJLZE5479-93-08 00:36:00 Test Item Value Reference Range Interpretation Comments Monocytes (test code = Monocytes) 12.5 2.0-12.0 [facility] CenterHhntihkIIZXXDXHCD0656-20-74 00:36:00 Test Item Value Reference Range Interpretation Comments Eosinophils (test code = 2.1 See_Comment [A utomated message] The Eosinophils) system which ge nerated this result tra nsmitted reference range : <=4.0. The reference r samantha was not used to int erpret this result as normal/abnormal . [facility] CenterGqgwvlwSICXKMYVIX0540-09-03 00:36:00 Test Item Value Reference Range Interpretation Comments Basophils (test code = 0.7 See_Comment [Aut omated message] The Basophils) system which ge nerated this result tra nsmitted reference range : <=1.0. The reference r samantha was not used to int erpret this result as normal/abnormal . [facility] CenterXlgqpfwRJCAWEPKWQ9708-60-22 00:36:00 Test Item Value Reference Range Interpretation Comments Neutrophils # (test code = Neutrophils 1.5 1.5-8.1 #) [facility] CenterUjqhudrUMZFZAAWAY2179-47-70 00:36:00 Test Item Value Reference Range Interpretation Comments Lymphocytes # (test code = Lymphocytes 0.6 1.0-5.5 #) [facility] CenterEazgrarIACTXQJNNJ9528-98-23 00:36:00 Test Item Value Reference Range Interpretation Comments Monocytes # (test code 0.3 See_Comment [Aut omated message] The = Monocytes #) system which generated this result tra nsmitted reference range : <=0.8. The reference r samantha was not used to int erpret this result as normal/abnormal . [facility] CenterEqeudrwKZOUMHDEJX6350-27-82 00:36:00 Test Item Value Reference Range Interpretation Comments Eosinophils # (test code 0.1 See_Comment [A utomated message] The = Eosinophils #) system whic h generated this result tra nsmitted reference range : <=0.5. The reference r samantha was not used to int erpret this result as normal/abnormal . [facility] [id number] 00:36:00 Test Item Value Reference Range Interpretation Comments ABO/Rh (test code = ABO/Rh) AB POS [facility] BANK [id number] 00:36:00 Test Item Value Reference Range Interpretation Comments Antibody Scrn (test Negative (12/03/21 7:36 code = Antibody Scrn) PM) [facility]2022-07-07 00:36:00 Test Item Value Reference Range Interpretation Comments Glucose Lvl (test code = Glucose Lvl) 143 70-99 [facility]2022-07-07 00:36:00 Test Item Value Reference Range Interpretation Comments BUN (test code = BUN) 39 7-22 [facility]2022-07-07 00:36:00 Test Item Value Reference Range Interpretation Comments Creatinine Lvl (test code = Creatinine 5.46 0.50-1.40 Lvl) [facility]2022-07-07 00:36:00 Test Item Value Reference Range Interpretation Comments Sodium Lvl (test code = Sodium Lvl) 136 135-145 [facility]2022-07-07 00:36:00 Test Item Value Reference Range Interpretation Comments Potassium Lvl (test code = Potassium 4.2 3.5-5.1 Lvl) [facility]2022-07-07 00:36:00 Test Item Value Reference Range Interpretation Comments Chloride Lvl (test code = Chloride Lvl) 100 95-109 [facility]2022-07-07 00:36:00 Test Item Value Reference Range Interpretation Comments CO2 (test code = CO2) 27 24-32 [facility]2022-07-07 00:36:00 Test Item Value Reference Range Interpretation Comments Calcium Lvl (test code = Calcium Lvl) 8.9 8.5-10.5 [facility]2022-07-07 00:36:00 Test Item Value Reference Range Interpretation Comments AGAP (test code = AGAP) 13.2 10.0-20.0 [facility]2022-07-07 00:36:00 Test Item Value Reference Range Interpretation Comments eGFR (test code = eGFR) 10 [facility] CenterJjtfncwGNCRLJMAIJ9698-55-30 00:36:00 Test Item Value Reference Range Interpretation Comments WBC (test code = WBC) 2.5 3.7-10.4 [facility] CenterOnjwhxcXWPXMOKTWD4259-40-15 00:36:00 Test Item Value Reference Range Interpretation Comments RBC (test code = RBC) 1.97 4.70-6.10 [facility] CenterFfhpahbDUCNDOWAPY1014-10-38 00:36:00 Test Item Value Reference Range Interpretation Comments Hgb (test code = Hgb) 7.1 14.0-18.0 [facility] CenterXofrxuhLZIGTXNHWH0522-71-70 00:36:00 Test Item Value Reference Range Interpretation Comments Hct (test code = Hct) 20.6 42.0-54.0 [facility] CenterKspmjciTGETYITXFH0200-43-07 00:36:00 Test Item Value Reference Range Interpretation Comments MCV (test code = MCV) 105.0 80.0-94.0 [facility] CenterKttbfvjQKVCMFUGPI9036-92-82 00:36:00 Test Item Value Reference Range Interpretation Comments MCH (test code = MCH) 36.2 pg 27.0-31.0 [facility] CenterHhqirqzWNIYWGLTOV4929-71-43 00:36:00 Test Item Value Reference Range Interpretation Comments MCHC (test code = MCHC) 34.5 32.0-36.0 [facility] CenterUvtavglTVYEUUYGLX5734-39-07 00:36:00 Test Item Value Reference Range Interpretation Comments RDW (test code = RDW) 21.1 11.5-14.5 [facility] CenterAjnrtdhFVZLZHMOAT1384-59-29 00:36:00 Test Item Value Reference Range Interpretation Comments Platelet (test code = Platelet) 136 133-450 [facility] CenterCzvyhgrSIFCZQGIQF2150-70-96 00:36:00 Test Item Value Reference Range Interpretation Comments MPV (test code = MPV) 8.7 7.4-10.4 [facility] CenterXrkgkjeNRFHIWUTZM3675-13-04 00:36:00 Test Item Value Reference Range Interpretation Comments Segs (test code = Segs) 59.5 45.0-75.0 [facility] CenterXuuvbbgUVZPMSAPNB3904-07-61 00:36:00 Test Item Value Reference Range Interpretation Comments Lymphocytes (test code = Lymphocytes) 25.2 20.0-40.0 [facility] CenterMwmargxIICNDJAEOU7121-87-35 00:36:00 Test Item Value Reference Range Interpretation Comments Monocytes (test code = Monocytes) 12.5 2.0-12.0 [facility] CenterSquhikyKJKVNNAAFE5688-41-23 00:36:00 Test Item Value Reference Range Interpretation Comments Eosinophils (test code = 2.1 See_Comment [A utomated message] The Eosinophils) system which ge nerated this result tra nsmitted reference range : <=4.0. The reference r samantha was not used to int erpret this result as normal/abnormal . [facility] CenterGksleiqDKPOUYWGGC5276-60-44 00:36:00 Test Item Value Reference Range Interpretation Comments Basophils (test code = 0.7 See_Comment [Aut omated message] The Basophils) system which ge nerated this result tra nsmitted reference range : <=1.0. The reference r samantha was not used to int erpret this result as normal/abnormal . [facility] CenterNdnqoveJJFJZDWJCX9196-53-16 00:36:00 Test Item Value Reference Range Interpretation Comments Neutrophils # (test code = Neutrophils 1.5 1.5-8.1 #) [facility] CenterAhyzblaXJKMMSPGWW0555-97-75 00:36:00 Test Item Value Reference Range Interpretation Comments Lymphocytes # (test code = Lymphocytes 0.6 1.0-5.5 #) [facility] CenterEpjgyohVYPGXUUTBP7689-31-43 00:36:00 Test Item Value Reference Range Interpretation Comments Monocytes # (test code 0.3 See_Comment [Aut omated message] The = Monocytes #) system which generated this result tra nsmitted reference range : <=0.8. The reference r samantha was not used to int erpret this result as normal/abnormal . [facility] CenterJqlqfioCEQWRQDTBX5901-19-52 00:36:00 Test Item Value Reference Range Interpretation Comments Eosinophils # (test code 0.1 See_Comment [A utomated message] The = Eosinophils #) system [facility] h generated this result tra nsmitted reference range : <=0.5. The reference r samantha was not used to int erpret this result as normal/abnormal . [facility] [id number] 00:36:00 Test Item Value Reference Range Interpretation Comments ABO/Rh (test code = ABO/Rh) AB POS [facility] [id number] 00:36:00 Test Item Value Reference Range Interpretation Comments Antibody Scrn (test Negative (12/03/21 7:36 code = Antibody Scrn) PM) [facility] [id number] 00:36:00 Test Item Value Reference Range Interpretation Comments Glucose Lvl (test code = Glucose Lvl) 143 70-99 [facility]2022-07-07 00:36:00 Test Item Value Reference Range Interpretation Comments BUN (test code = BUN) 39 7-22 [place] 584952-07-07 00:36:00 Test Item Value Reference Range Interpretation Comments Creatinine Lvl (test code = Creatinine 5.46 0.50-1.40 Lvl) [place] 584952-07-07 00:36:00 Test Item Value Reference Range Interpretation Comments Sodium Lvl (test code = Sodium Lvl) 136 135-145 [place] 584952-07-07 00:36:00 Test Item Value Reference Range Interpretation Comments Potassium Lvl (test code = Potassium 4.2 3.5-5.1 Lvl) [place] 584952-07-07 00:36:00 Test Item Value Reference Range Interpretation Comments Chloride Lvl (test code = Chloride Lvl) 100 95-109 [place] 584952-07-07 00:36:00 Test Item Value Reference Range Interpretation Comments CO2 (test code = CO2) 27 24-32 [place] 584952-07-07 00:36:00 Test Item Value Reference Range Interpretation Comments Calcium Lvl (test code = Calcium Lvl) 8.9 8.5-10.5 [place] 584952-07-07 00:36:00 Test Item Value Reference Range Interpretation Comments AGAP (test code = AGAP) 13.2 10.0-20.0 [place] 584952-07-07 00:36:00 Test Item Value Reference Range Interpretation Comments eGFR (test code = eGFR) 10 [place] 482272-07-07 00:36:00 Test Item Value Reference Range Interpretation Comments WBC (test code = WBC) 2.5 3.7-10.4 [place] [address]-07-07 00:36:00 Test Item Value Reference Range Interpretation Comments RBC (test code = RBC) 1.97 4.70-6.10 [place] 482272-07-07 00:36:00 Test Item Value Reference Range Interpretation Comments Hgb (test code = Hgb) 7.1 14.0-18.0 [place] 482272-07-07 00:36:00 Test Item Value Reference Range Interpretation Comments Hct (test code = Hct) 20.6 42.0-54.0 [place] 482272-07-07 00:36:00 Test Item Value Reference Range Interpretation Comments MCV (test code = MCV) 105.0 80.0-94.0 [place] 482272-07-07 00:36:00 Test Item Value Reference Range Interpretation Comments MCH (test code = MCH) 36.2 pg 27.0-31.0 [place] 482272-07-07 00:36:00 Test Item Value Reference Range Interpretation Comments MCHC (test code = MCHC) 34.5 32.0-36.0 [place] 482272-07-07 00:36:00 Test Item Value Reference Range Interpretation Comments RDW (test code = RDW) 21.1 11.5-14.5 [place] [id number] 00:36:00 Test Item Value Reference Range Interpretation Comments Platelet (test code = Platelet) 136 133-450 [facility] CenterDfsbkblGYNOHOXFJL1198-09-67 00:36:00 Test Item Value Reference Range Interpretation Comments MPV (test code = MPV) 8.7 7.4-10.4 [place] 482272-07-07 00:36:00 Test Item Value Reference Range Interpretation Comments Segs (test code = Segs) 59.5 45.0-75.0 [facility] CenterUkpxmgaSLDKEQIWFJ5484-43-73 00:36:00 Test Item Value Reference Range Interpretation Comments Lymphocytes (test code = Lymphocytes) 25.2 20.0-40.0 [place] 482272-07-07 00:36:00 Test Item Value Reference Range Interpretation Comments Monocytes (test code = Monocytes) 12.5 2.0-12.0 [place] 482272-07-07 00:36:00 Test Item Value Reference Range Interpretation Comments Eosinophils (test code = 2.1 See_Comment [A utomated message] The Eosinophils) system which ge nerated this result tra nsmitted reference range : <=4.0. The reference r samantha was not used to int erpret this result as normal/abnormal . [place] 482272-07-07 00:36:00 Test Item Value Reference Range Interpretation Comments Basophils (test code = 0.7 See_Comment [Aut omated message] The Basophils) system which ge nerated this result tra nsmitted reference range : <=1.0. The reference r samantha was not used to int erpret this result as normal/abnormal . [place] 482272-07-07 00:36:00 Test Item Value Reference Range Interpretation Comments Neutrophils # (test code = Neutrophils 1.5 1.5-8.1 #) [facility] CenterJgfhnthCQTYRTLEAF1495-19-54 00:36:00 Test Item Value Reference Range Interpretation Comments Lymphocytes # (test code = Lymphocytes 0.6 1.0-5.5 #) [place] 482272-07-07 00:36:00 Test Item Value Reference Range Interpretation Comments Monocytes # (test code 0.3 See_Comment [Aut omated message] The = Monocytes #) system which generated this result tra nsmitted reference range : <=0.8. The reference r samantha was not used to int erpret this result as normal/abnormal . [facility] CenterYxecjgsSQCOIJZUCI9407-74-03 00:36:00 Test Item Value Reference Range Interpretation Comments Eosinophils # (test code 0.1 See_Comment [A utomated message] The = Eosinophils #) system whic h generated this result tra nsmitted reference range : <=0.5. The reference r samantha was not used to int erpret this result as normal/abnormal . [facility]2022-06-29 09:09:00 Test Item Value Reference Range Interpretation Comments Ferritin Lvl (test code = Ferritin Lvl) 1543 22-275 [facility]2022-06-29 09:09:00 Test Item Value Reference Range Interpretation Comments Glucose Lvl (test code = Glucose Lvl) 288 70-99 [place] 584952-06-29 09:09:00 Test Item Value Reference Range Interpretation Comments BUN (test code = BUN) 40 7-22 [place] 584952-06-29 09:09:00 Test Item Value Reference Range Interpretation Comments Creatinine Lvl (test code = Creatinine 6.23 0.50-1.40 Lvl) [place] 584952-06-29 09:09:00 Test Item Value Reference Range Interpretation Comments Sodium Lvl (test code = Sodium Lvl) 134 135-145 [place] 584952-06-29 09:09:00 Test Item Value Reference Range Interpretation Comments Potassium Lvl (test code = Potassium 4.5 3.5-5.1 Lvl) [place] 584952-06-29 09:09:00 Test Item Value Reference Range Interpretation Comments Chloride Lvl (test code = Chloride Lvl) 96 95-109 [place] 584952-06-29 09:09:00 Test Item Value Reference Range Interpretation Comments CO2 (test code = CO2) 29 24-32 [place] 584952-06-29 09:09:00 Test Item Value Reference Range Interpretation Comments AGAP (test code = AGAP) 13.5 10.0-20.0 [place] 584952-06-29 09:09:00 Test Item Value Reference Range Interpretation Comments Calcium Lvl (test code = Calcium Lvl) 9.1 8.5-10.5 [place] 584952-06-29 09:09:00 Test Item Value Reference Range Interpretation Comments B/C Ratio (test code = B/C Ratio) 6 1 6-25 [place] 584952-06-29 09:09:00 Test Item Value Reference Range Interpretation Comments Total Protein (test code = Total 6.3 6.4-8.4 Protein) [place] 584952-06-29 09:09:00 Test Item Value Reference Range Interpretation Comments Albumin Lvl (test code = Albumin Lvl) 2.5 3.5-5.0 [place] 584952-06-29 09:09:00 Test Item Value Reference Range Interpretation Comments Globulin (test code = Globulin) 3.8 2.7-4.2 [place] 584952-06-29 09:09:00 Test Item Value Reference Range Interpretation Comments A/G Ratio (test code = A/G Ratio) 0.7 1 0.7-1.6 [place] 584952-06-29 09:09:00 Test Item Value Reference Range Interpretation Comments ALT (test code = ALT) 38 See_Comment [Auto mated message] The system which ge nerated this result transmit swathi reference range : <=65. The reference range was not used to interpr et this result as deny l/abnormal. [place] 584952-06-29 09:09:00 Test Item Value Reference Range Interpretation Comments AST (test code = AST) 31 See_Comment [Auto mated message] The system which ge nerated this result transmit swathi reference range : <=37. The reference range was not used to interpr et this result as deny l/abnormal. [facility]2022-06-29 09:09:00 Test Item Value Reference Range Interpretation Comments Alk Phos (test code = Alk Phos) 357 39-136 [facility] [id number] 09:09:00 Test Item Value Reference Range Interpretation Comments Bili Total (test code = Bili Total) 1.0 0.2-1.3 [place] 584952-06-29 09:09:00 Test Item Value Reference Range Interpretation Comments eGFR (test code = eGFR) 8 [place] 584952-06-29 09:09:00 Test Item Value Reference Range Interpretation Comments Magnesium Lvl (test code = Magnesium 2.0 1.8-2.4 Lvl) [place] 584952-06-29 09:09:00 Test Item Value Reference Range Interpretation Comments LDH (test code = LDH) 251 98-192 [facility] [id number] 09:09:00 Test Item Value Reference Range Interpretation Comments Procalcitonin Lvl (test 0.51 See_Comment [Au tomated message] code = Procalcitonin Lvl) Th e system which generated this result transmitted ref erence range: <=0.10. The reference range was not used to interpr et this result as normal/abnormal . [facility] AntonioYfxxmuoJRCZIOUFCK0732-24-60 09:09:00 Test Item Value Reference Range Interpretation Comments D-Dimer (test code = D-Dimer) 5.06 [place] [address]-06-29 09:09:00 Test Item Value Reference Range Interpretation Comments WBC (test code = WBC) 4.8 3.7-10.4 [place] [address]-06-29 09:09:00 Test Item Value Reference Range Interpretation Comments RBC (test code = RBC) 2.14 4.70-6.10 [place] [address]-06-29 09:09:00 Test Item Value Reference Range Interpretation Comments Hgb (test code = Hgb) 7.7 14.0-18.0 [place] [address]-06-29 09:09:00 Test Item Value Reference Range Interpretation Comments Hct (test code = Hct) 22.8 42.0-54.0 [facility] CenterCglizukPXBJEFGJIV6674-22-18 09:09:00 Test Item Value Reference Range Interpretation Comments MCV (test code = MCV) 106.5 80.0-94.0 [facility] CenterWrxjilqPIQGDSKHVP3279-40-81 09:09:00 Test Item Value Reference Range Interpretation Comments MCH (test code = MCH) 36.1 pg 27.0-31.0 [place] 482272-06-29 09:09:00 Test Item Value Reference Range Interpretation Comments MCHC (test code = MCHC) 33.9 32.0-36.0 [facility] CenterNxlxpmpNQEWOIMKTX1085-25-96 09:09:00 Test Item Value Reference Range Interpretation Comments RDW (test code = RDW) 21.8 11.5-14.5 [place] 482272-06-29 09:09:00 Test Item Value Reference Range Interpretation Comments Platelet (test code = Platelet) 176 133-450 [facility] CenterQfokkosXUFYHKYSDL7583-45-06 09:09:00 Test Item Value Reference Range Interpretation Comments MPV (test code = MPV) 8.2 7.4-10.4 [place] 482272-06-29 09:09:00 Test Item Value Reference Range Interpretation Comments Segs (test code = Segs) 83.6 45.0-75.0 [facility] CenterDjrejapHXNDLYWPFM6183-29-49 09:09:00 Test Item Value Reference Range Interpretation Comments Lymphocytes (test code = Lymphocytes) 10.7 20.0-40.0 [place] 482272-06-29 09:09:00 Test Item Value Reference Range Interpretation Comments Monocytes (test code = Monocytes) 4.9 2.0-12.0 [place] [address]-06-29 09:09:00 Test Item Value Reference Range Interpretation Comments Eosinophils (test code = 0.4 See_Comment [A utomated message] The Eosinophils) system which ge nerated this result tra nsmitted reference range : <=4.0. The reference r samantha was not used to int erpret this result as normal/abnormal . [facility] CenterTvozdwpXWQJNXKZSN1687-49-69 09:09:00 Test Item Value Reference Range Interpretation Comments Basophils (test code = 0.4 See_Comment [Aut omated message] The Basophils) system which ge nerated this result tra nsmitted reference range : <=1.0. The reference r samantha was not used to int erpret this result as normal/abnormal . [facility] CenterUdoywchPDLOUBXLCJ4747-81-36 09:09:00 Test Item Value Reference Range Interpretation Comments Neutrophils # (test code = Neutrophils 4.0 1.5-8.1 #) [facility] CenterZygqjqrDMMIUMVLIO7176-50-17 09:09:00 Test Item Value Reference Range Interpretation Comments Lymphocytes # (test code = Lymphocytes 0.5 1.0-5.5 #) [facility] CenterUgeiyajVHKLCEMHFF8830-27-21 09:09:00 Test Item Value Reference Range Interpretation Comments Monocytes # (test code 0.2 See_Comment [Aut omated message] The = Monocytes #) system which generated this result tra nsmitted reference range : <=0.8. The reference r samantha was not used to int erpret this result as normal/abnormal . [facility] CenterHqeduvpCXSVGDBLVW3583-94-02 09:09:00 Test Item Value Reference Range Interpretation Comments Macrocyte (test code = 1+ *ABN*(11/26/21 Macrocyte) 4:09 AM) [facility]73 09:09:00 Test Item Value Reference Range Interpretation Comments Interleukin 6 (test code = Interleukin 14.71 6) [place] 896032-06-29 09:09:00 Test Item Value Reference Range Interpretation Comments C-REACTIVE PROTEIN (test code = 95.9 C-REACTIVE PROTEIN) [facility]2022-06-29 09:09:00 Test Item Value Reference Range Interpretation Comments Ferritin Lvl (test code = Ferritin Lvl) 1543 22275 [facility]2022-06-29 09:09:00 Test Item Value Reference Range Interpretation Comments Glucose Lvl (test code = Glucose Lvl) 288 70-99 [facility]2022-06-29 09:09:00 Test Item Value Reference Range Interpretation Comments BUN (test code = BUN) 40 7-22 [place] 584952-06-29 09:09:00 Test Item Value Reference Range Interpretation Comments Creatinine Lvl (test code = Creatinine 6.23 0.50-1.40 Lvl) [place] 584952-06-29 09:09:00 Test Item Value Reference Range Interpretation Comments Sodium Lvl (test code = Sodium Lvl) 134 135-145 [place] 584952-06-29 09:09:00 Test Item Value Reference Range Interpretation Comments Potassium Lvl (test code = Potassium 4.5 3.5-5.1 Lvl) [place] 584952-06-29 09:09:00 Test Item Value Reference Range Interpretation Comments Chloride Lvl (test code = Chloride Lvl) 96 95-109 [place] 584952-06-29 09:09:00 Test Item Value Reference Range Interpretation Comments CO2 (test code = CO2) 29 24-32 [place] 584952-06-29 09:09:00 Test Item Value Reference Range Interpretation Comments AGAP (test code = AGAP) 13.5 10.0-20.0 [place] 584952-06-29 09:09:00 Test Item Value Reference Range Interpretation Comments Calcium Lvl (test code = Calcium Lvl) 9.1 8.5-10.5 [place] 584952-06-29 09:09:00 Test Item Value Reference Range Interpretation Comments B/C Ratio (test code = B/C Ratio) 6 1 6-25 [place] 584952-06-29 09:09:00 Test Item Value Reference Range Interpretation Comments Total Protein (test code = Total 6.3 6.4-8.4 Protein) [place] 584952-06-29 09:09:00 Test Item Value Reference Range Interpretation Comments Albumin Lvl (test code = Albumin Lvl) 2.5 3.5-5.0 [place] 584952-06-29 09:09:00 Test Item Value Reference Range Interpretation Comments Globulin (test code = Globulin) 3.8 2.7-4.2 [place] 584952-06-29 09:09:00 Test Item Value Reference Range Interpretation Comments A/G Ratio (test code = A/G Ratio) 0.7 1 0.7-1.6 [place] 584952-06-29 09:09:00 Test Item Value Reference Range Interpretation Comments ALT (test code = ALT) 38 See_Comment [Auto mated message] The system which ge nerated this result transmit swathi reference range : <=65. The reference range was not used to interpr et this result as deny l/abnormal. [facility] [id number] 09:09:00 Test Item Value Reference Range Interpretation Comments AST (test code = AST) 31 See_Comment [Auto mated message] The system which ge nerated this result transmit swathi reference range : <=37. The reference range was not used to interpr et this result as deny l/abnormal. [facility] [id number] 09:09:00 Test Item Value Reference Range Interpretation Comments Alk Phos (test code = Alk Phos) 357 39-136 [facility] [id number] 09:09:00 Test Item Value Reference Range Interpretation Comments Bili Total (test code = Bili Total) 1.0 0.2-1.3 [facility] HealthROB[facility] [id number] 09:09:00 Test Item Value Reference Range Interpretation Comments eGFR (test code = eGFR) 8 [facility] [id number] 09:09:00 Test Item Value Reference Range Interpretation Comments Magnesium Lvl (test code = Magnesium 2.0 1.8-2.4 Lvl) [place] 584952-06-29 09:09:00 Test Item Value Reference Range Interpretation Comments LDH (test code = LDH) 251 98-192 [facility] [id number] 09:09:00 Test Item Value Reference Range Interpretation Comments Procalcitonin Lvl (test 0.51 See_Comment [Au tomated message] code = Procalcitonin Lvl) Th e system which generated this result transmitted ref erence range: <=0.10. The reference range was not used to interpr et this result as normal/abnormal . [facility] AntonioXdznpvdLKUQNILOJS6196-55-55 09:09:00 Test Item Value Reference Range Interpretation Comments D-Dimer (test code = D-Dimer) 5.06 [place] [address]-06-29 09:09:00 Test Item Value Reference Range Interpretation Comments WBC (test code = WBC) 4.8 3.7-10.4 [place] [address]-06-29 09:09:00 Test Item Value Reference Range Interpretation Comments RBC (test code = RBC) 2.14 4.70-6.10 [place] 482272-06-29 09:09:00 Test Item Value Reference Range Interpretation Comments Hgb (test code = Hgb) 7.7 14.0-18.0 [place] 482272-06-29 09:09:00 Test Item Value Reference Range Interpretation Comments Hct (test code = Hct) 22.8 42.0-54.0 [place] 482272-06-29 09:09:00 Test Item Value Reference Range Interpretation Comments MCV (test code = MCV) 106.5 80.0-94.0 [place] 482272-06-29 09:09:00 Test Item Value Reference Range Interpretation Comments MCH (test code = MCH) 36.1 pg 27.0-31.0 [facility] CenterIiqvdurFWERIKQNRF0117-03-71 09:09:00 Test Item Value Reference Range Interpretation Comments MCHC (test code = MCHC) 33.9 32.0-36.0 [facility] CenterGfphialDKMGJSRVNR0818-59-94 09:09:00 Test Item Value Reference Range Interpretation Comments RDW (test code = RDW) 21.8 11.5-14.5 [place] 482272-06-29 09:09:00 Test Item Value Reference Range Interpretation Comments Platelet (test code = Platelet) 176 133-450 [facility] CenterYsksdjnYJWKQBVILO3275-08-50 09:09:00 Test Item Value Reference Range Interpretation Comments MPV (test code = MPV) 8.2 7.4-10.4 [place] 482272-06-29 09:09:00 Test Item Value Reference Range Interpretation Comments Segs (test code = Segs) 83.6 45.0-75.0 [facility] CenterQjsaiegYTVVAJBGSS4793-39-09 09:09:00 Test Item Value Reference Range Interpretation Comments Lymphocytes (test code = Lymphocytes) 10.7 20.0-40.0 [place] 482272-06-29 09:09:00 Test Item Value Reference Range Interpretation Comments Monocytes (test code = Monocytes) 4.9 2.0-12.0 [place] [address]-06-29 09:09:00 Test Item Value Reference Range Interpretation Comments Eosinophils (test code = 0.4 See_Comment [A utomated message] The Eosinophils) system which ge nerated this result tra nsmitted reference range : <=4.0. The reference r samantha was not used to int erpret this result as normal/abnormal . [facility] CenterEvmgeceOXHNVKCIFK0228-92-22 09:09:00 Test Item Value Reference Range Interpretation Comments Basophils (test code = 0.4 See_Comment [Aut omated message] The Basophils) system which ge nerated this result tra nsmitted reference range : <=1.0. The reference r samantha was not used to int erpret this result as normal/abnormal . [facility] CenterXosxpihABXHGXBDNT6044-19-51 09:09:00 Test Item Value Reference Range Interpretation Comments Neutrophils # (test code = Neutrophils 4.0 1.5-8.1 #) [facility] CenterOytfuocHYMRKKKFDA7944-35-64 09:09:00 Test Item Value Reference Range Interpretation Comments Lymphocytes # (test code = Lymphocytes 0.5 1.0-5.5 #) [facility] CenterHwwrjtrPHICGQDIFR3649-87-76 09:09:00 Test Item Value Reference Range Interpretation Comments Monocytes # (test code 0.2 See_Comment [Aut omated message] The = Monocytes #) system which generated this result tra nsmitted reference range : <=0.8. The reference r samantha was not used to int erpret this result as normal/abnormal . [facility] CenterYzjjepfNYSGSXLITE4835-75-46 09:09:00 Test Item Value Reference Range Interpretation Comments Macrocyte (test code = 1+ *ABN*(11/26/21 Macrocyte) 4:09 AM) [facility] AntonioDenhayuUHAOXIZHTK2555-46-64 09:09:00 Test Item Value Reference Range Interpretation Comments Interleukin 6 (test code = Interleukin 14.71 6) [facility] AntonioPakvyfnZZBTLQIRNK7346-49-32 09:09:00 Test Item Value Reference Range Interpretation Comments C-REACTIVE PROTEIN (test code = 95.9 C-REACTIVE PROTEIN) [facility]2022-06-29 09:09:00 Test Item Value Reference Range Interpretation Comments Ferritin Lvl (test code = Ferritin Lvl) 1543 92-760 [facility]2022-06-29 09:09:00 Test Item Value Reference Range Interpretation Comments Glucose Lvl (test code = Glucose Lvl) 288 70-99 [facility]2022-06-29 09:09:00 Test Item Value Reference Range Interpretation Comments BUN (test code = BUN) 40 7-22 [place] 584952-06-29 09:09:00 Test Item Value Reference Range Interpretation Comments Creatinine Lvl (test code = Creatinine 6.23 0.50-1.40 Lvl) [place] 584952-06-29 09:09:00 Test Item Value Reference Range Interpretation Comments Sodium Lvl (test code = Sodium Lvl) 134 135-145 [place] 584952-06-29 09:09:00 Test Item Value Reference Range Interpretation Comments Potassium Lvl (test code = Potassium 4.5 3.5-5.1 Lvl) [place] 584952-06-29 09:09:00 Test Item Value Reference Range Interpretation Comments Chloride Lvl (test code = Chloride Lvl) 96 95-109 [place] 584952-06-29 09:09:00 Test Item Value Reference Range Interpretation Comments CO2 (test code = CO2) 29 24-32 [place] 584952-06-29 09:09:00 Test Item Value Reference Range Interpretation Comments AGAP (test code = AGAP) 13.5 10.0-20.0 [place] 584952-06-29 09:09:00 Test Item Value Reference Range Interpretation Comments Calcium Lvl (test code = Calcium Lvl) 9.1 8.5-10.5 [place] 584952-06-29 09:09:00 Test Item Value Reference Range Interpretation Comments B/C Ratio (test code = B/C Ratio) 6 1 6-25 [place] 584952-06-29 09:09:00 Test Item Value Reference Range Interpretation Comments Total Protein (test code = Total 6.3 6.4-8.4 Protein) [place] 584952-06-29 09:09:00 Test Item Value Reference Range Interpretation Comments Albumin Lvl (test code = Albumin Lvl) 2.5 3.5-5.0 [place] 584952-06-29 09:09:00 Test Item Value Reference Range Interpretation Comments Globulin (test code = Globulin) 3.8 2.7-4.2 [place] 584952-06-29 09:09:00 Test Item Value Reference Range Interpretation Comments A/G Ratio (test code = A/G Ratio) 0.7 1 0.7-1.6 [facility] [employer] [id number] 09:09:00 Test Item Value Reference Range Interpretation Comments ALT (test code = ALT) 38 See_Comment [Auto mated message] The system which ge nerated this result transmit swathi reference range : <=65. The reference range was not used to interpr et this result as deny l/abnormal. [facility] [employer] [id number] 09:09:00 Test Item Value Reference Range Interpretation Comments AST (test code = AST) 31 See_Comment [Auto mated message] The system which ge nerated this result transmit swathi reference range : <=37. The reference range was not used to interpr et this result as deny l/abnormal. [facility] [employer] [id number] 09:09:00 Test Item Value Reference Range Interpretation Comments Alk Phos (test code = Alk Phos) 357 39-136 [facility] [employer] [id number] 09:09:00 Test Item Value Reference Range Interpretation Comments Bili Total (test code = Bili Total) 1.0 0.2-1.3 [facility] [employer] [id number] 09:09:00 Test Item Value Reference Range Interpretation Comments eGFR (test code = eGFR) 8 [facility] [employer] [id number] 09:09:00 Test Item Value Reference Range Interpretation Comments Magnesium Lvl (test code = Magnesium 2.0 1.8-2.4 Lvl) [facility] [id number] 09:09:00 Test Item Value Reference Range Interpretation Comments LDH (test code = LDH) 251 98-192 [facility] [employer] [id number] 09:09:00 Test Item Value Reference Range Interpretation Comments Procalcitonin Lvl (test 0.51 See_Comment [Au tomated message] code = Procalcitonin Lvl) Th e system which generated this result transmitted ref erence range: <=0.10. The reference range was not used to interpr et this result as normal/abnormal . [facility] HospitalVzrkbmkGGTNQFPUHW6623-99-69 09:09:00 Test Item Value Reference Range Interpretation Comments D-Dimer (test code = D-Dimer) 5.06 [facility] HospitalXyikvkfSCQSVPGDVF1223-43-69 09:09:00 Test Item Value Reference Range Interpretation Comments WBC (test code = WBC) 4.8 3.7-10.4 [facility] CenterTiapkpxKMWWPSUWVZ8780-77-98 09:09:00 Test Item Value Reference Range Interpretation Comments RBC (test code = RBC) 2.14 4.70-6.10 [facility] CenterJkbrctaFUBKKJUAFU4358-89-49 09:09:00 Test Item Value Reference Range Interpretation Comments Hgb (test code = Hgb) 7.7 14.0-18.0 [facility] CenterBfcditmFXRFEVIPOH2324-64-74 09:09:00 Test Item Value Reference Range Interpretation Comments Hct (test code = Hct) 22.8 42.0-54.0 [facility] CenterZvxhilbCQCBHAKGBC4949-43-07 09:09:00 Test Item Value Reference Range Interpretation Comments MCV (test code = MCV) 106.5 80.0-94.0 [facility] CenterCpnwugnLKTKXVCEIH2427-11-16 09:09:00 Test Item Value Reference Range Interpretation Comments MCH (test code = MCH) 36.1 pg 27.0-31.0 [facility] CenterGspqkjvSHPFUUGYKH0915-02-68 09:09:00 Test Item Value Reference Range Interpretation Comments MCHC (test code = MCHC) 33.9 32.0-36.0 [facility] CenterVlgwhvlJNCUDBJNMA8205-81-84 09:09:00 Test Item Value Reference Range Interpretation Comments RDW (test code = RDW) 21.8 11.5-14.5 [facility] CenterVlgsgjkNISYKORYOE7831-88-24 09:09:00 Test Item Value Reference Range Interpretation Comments Platelet (test code = Platelet) 176 133-450 [facility] CenterXneibpiFIZVCTNDHG9429-19-87 09:09:00 Test Item Value Reference Range Interpretation Comments MPV (test code = MPV) 8.2 7.4-10.4 [place] 482272-06-29 09:09:00 Test Item Value Reference Range Interpretation Comments Segs (test code = Segs) 83.6 45.0-75.0 [place] 482272-06-29 09:09:00 Test Item Value Reference Range Interpretation Comments Lymphocytes (test code = Lymphocytes) 10.7 20.0-40.0 [place] 482272-06-29 09:09:00 Test Item Value Reference Range Interpretation Comments Monocytes (test code = Monocytes) 4.9 2.0-12.0 [facility] CenterDhqvrtcTRKINWFHAT8638-79-70 09:09:00 Test Item Value Reference Range Interpretation Comments Eosinophils (test code = 0.4 See_Comment [A utomated message] The Eosinophils) system which ge nerated this result tra nsmitted reference range : <=4.0. The reference r samantha was not used to int erpret this result as normal/abnormal . [facility] CenterFeskvlvYTHVFHOLCD7030-57-91 09:09:00 Test Item Value Reference Range Interpretation Comments Basophils (test code = 0.4 See_Comment [Aut omated message] The Basophils) system which ge nerated this result tra nsmitted reference range : <=1.0. The reference r samantha was not used to int erpret this result as normal/abnormal . [facility] CenterOpjhxpyCVKMNOKSFG0207-88-46 09:09:00 Test Item Value Reference Range Interpretation Comments Neutrophils # (test code = Neutrophils 4.0 1.5-8.1 #) [facility] CenterWqjwkoiEVLRXCHLEG8228-42-66 09:09:00 Test Item Value Reference Range Interpretation Comments Lymphocytes # (test code = Lymphocytes 0.5 1.0-5.5 #) [facility] CenterEackaknUXLEZFKYQW0097-05-37 09:09:00 Test Item Value Reference Range Interpretation Comments Monocytes # (test code 0.2 See_Comment [Aut omated message] The = Monocytes #) system which generated this result tra nsmitted reference range : <=0.8. The reference r samantha was not used to int erpret this result as normal/abnormal . [facility] CenterKbfvlrnNMGDXEYSDY2943-32-22 09:09:00 Test Item Value Reference Range Interpretation Comments Macrocyte (test code = 1+ *ABN*(11/26/21 Macrocyte) 4:09 AM) [facility]VimoifyLQWOZTYTDL3613-74-92 09:09:00 Test Item Value Reference Range Interpretation Comments Interleukin 6 (test code = Interleukin 14.71 6) [facility] CenterBbulikdJHUCBDUTPU2374-09-62 09:09:00 Test Item Value Reference Range Interpretation Comments C-REACTIVE PROTEIN (test code = 95.9 C-REACTIVE PROTEIN) [facility] CenterPygslilSJCJQSVINT7080-01-34 12:33:00 Test Item Value Reference Range Interpretation Comments Segs (test code = Segs) 84.8 45.0-75.0 [facility] CenterYtruygnQRVIICSNMI0108-65-45 12:33:00 Test Item Value Reference Range Interpretation Comments Lymphocytes (test code = Lymphocytes) 11.6 20.0-40.0 [facility] CenterHufutgpLZZITDJBRF0477-39-89 12:33:00 Test Item Value Reference Range Interpretation Comments Monocytes (test code = Monocytes) 2.8 2.0-12.0 [place] 482272-06-28 12:33:00 Test Item Value Reference Range Interpretation Comments Eosinophils (test code = 0.4 See_Comment [A utomated message] The Eosinophils) system which ge nerated this result tra nsmitted reference range : <=4.0. The reference r samantha was not used to int erpret this result as normal/abnormal . [place] 482272-06-28 12:33:00 Test Item Value Reference Range Interpretation Comments Basophils (test code = 0.4 See_Comment [Aut omated message] The Basophils) system which ge nerated this result tra nsmitted reference range : <=1.0. The reference r samantha was not used to int erpret this result as normal/abnormal . [facility] CenterMvfzelaMTGJFXHFCF9997-62-55 12:33:00 Test Item Value Reference Range Interpretation Comments Neutrophils # (test code = Neutrophils 4.4 1.5-8.1 #) [facility] CenterOszpsjhUVTBFMQUOS3476-95-82 12:33:00 Test Item Value Reference Range Interpretation Comments Lymphocytes # (test code = Lymphocytes 0.6 1.0-5.5 #) [facility] CenterZgavmkxKKZDOCRPCI4561-73-58 12:33:00 Test Item Value Reference Range Interpretation Comments Monocytes # (test code 0.1 See_Comment [Aut omated message] The = Monocytes #) system which generated this result tra nsmitted reference range : <=0.8. The reference r samantha was not used to int erpret this result as normal/abnormal . [place] 482272-06-28 12:33:00 Test Item Value Reference Range Interpretation Comments Macrocyte (test code = 1+ *ABN*(11/25/21 Macrocyte) 7:33 AM) [place] 482272-06-28 12:33:00 Test Item Value Reference Range Interpretation Comments WBC (test code = WBC) 5.2 3.7-10.4 [place] 482272-06-28 12:33:00 Test Item Value Reference Range Interpretation Comments RBC (test code = RBC) 2.18 4.70-6.10 [facility] CenterOoihgdfBDKRULFCQF9210-49-51 12:33:00 Test Item Value Reference Range Interpretation Comments Hgb (test code = Hgb) 7.8 14.0-18.0 [place] 482272-06-28 12:33:00 Test Item Value Reference Range Interpretation Comments Hct (test code = Hct) 23.6 42.0-54.0 [place] 482272-06-28 12:33:00 Test Item Value Reference Range Interpretation Comments MCV (test code = MCV) 108.4 80.0-94.0 [place] 482272-06-28 12:33:00 Test Item Value Reference Range Interpretation Comments MCH (test code = MCH) 35.9 pg 27.0-31.0 [facility] CenterGgemphjOQFVWNEIOD4895-11-34 12:33:00 Test Item Value Reference Range Interpretation Comments MCHC (test code = MCHC) 33.1 32.0-36.0 [facility] CenterWykunwwZTKSZKGWGN7123-76-29 12:33:00 Test Item Value Reference Range Interpretation Comments RDW (test code = RDW) 21.5 11.5-14.5 [facility] CenterAjwdmibTKVKANNSKR4294-98-58 12:33:00 Test Item Value Reference Range Interpretation Comments Platelet (test code = Platelet) 167 133-450 [facility] CenterTshjmpwZIGNGPCQEY1762-29-91 12:33:00 Test Item Value Reference Range Interpretation Comments MPV (test code = MPV) 7.6 7.4-10.4 [place] 482272-06-28 12:33:00 Test Item Value Reference Range Interpretation Comments Segs (test code = Segs) 84.8 45.0-75.0 [place] 482272-06-28 12:33:00 Test Item Value Reference Range Interpretation Comments Lymphocytes (test code = Lymphocytes) 11.6 20.0-40.0 [place] 482272-06-28 12:33:00 Test Item Value Reference Range Interpretation Comments Monocytes (test code = Monocytes) 2.8 2.0-12.0 [place] 482272-06-28 12:33:00 Test Item Value Reference Range Interpretation Comments Eosinophils (test code = 0.4 See_Comment [A utomated message] The Eosinophils) system which ge nerated this result tra nsmitted reference range : <=4.0. The reference r samantha was not used to int erpret this result as normal/abnormal . [facility] CenterBuvkfhbEQRRVTCDJG8991-76-85 12:33:00 Test Item Value Reference Range Interpretation Comments Basophils (test code = 0.4 See_Comment [Aut omated message] The Basophils) system which ge nerated this result tra nsmitted reference range : <=1.0. The reference r samantha was not used to int erpret this result as normal/abnormal . [facility] CenterCadepgnYUWMODVFCH5791-54-50 12:33:00 Test Item Value Reference Range Interpretation Comments Neutrophils # (test code = Neutrophils 4.4 1.5-8.1 #) [place] 482272-06-28 12:33:00 Test Item Value Reference Range Interpretation Comments Lymphocytes # (test code = Lymphocytes 0.6 1.0-5.5 #) [place] 482272-06-28 12:33:00 Test Item Value Reference Range Interpretation Comments Monocytes # (test code 0.1 See_Comment [Aut omated message] The = Monocytes #) system which generated this result tra nsmitted reference range : <=0.8. The reference r samantha was not used to int erpret this result as normal/abnormal . [facility] CenterSeheepbXMXWYCKMOO8349-70-05 12:33:00 Test Item Value Reference Range Interpretation Comments Macrocyte (test code = 1+ *ABN*(11/25/21 Macrocyte) 7:33 AM) [place] 482272-06-28 12:33:00 Test Item Value Reference Range Interpretation Comments WBC (test code = WBC) 5.2 3.7-10.4 [place] 482272-06-28 12:33:00 Test Item Value Reference Range Interpretation Comments RBC (test code = RBC) 2.18 4.70-6.10 [place] 482272-06-28 12:33:00 Test Item Value Reference Range Interpretation Comments Hgb (test code = Hgb) 7.8 14.0-18.0 [place] 482272-06-28 12:33:00 Test Item Value Reference Range Interpretation Comments Hct (test code = Hct) 23.6 42.0-54.0 [place] 482272-06-28 12:33:00 Test Item Value Reference Range Interpretation Comments MCV (test code = MCV) 108.4 80.0-94.0 [place] 482272-06-28 12:33:00 Test Item Value Reference Range Interpretation Comments MCH (test code = MCH) 35.9 pg 27.0-31.0 [place] 482272-06-28 12:33:00 Test Item Value Reference Range Interpretation Comments MCHC (test code = MCHC) 33.1 32.0-36.0 [place] 482272-06-28 12:33:00 Test Item Value Reference Range Interpretation Comments RDW (test code = RDW) 21.5 11.5-14.5 [place] 482272-06-28 12:33:00 Test Item Value Reference Range Interpretation Comments Platelet (test code = Platelet) 167 133-450 [place] 482272-06-28 12:33:00 Test Item Value Reference Range Interpretation Comments MPV (test code = MPV) 7.6 7.4-10.4 [place] 482272-06-28 12:33:00 Test Item Value Reference Range Interpretation Comments Segs (test code = Segs) 84.8 45.0-75.0 [facility] CenterRuvjxivXSSROPPNKF3395-27-14 12:33:00 Test Item Value Reference Range Interpretation Comments Lymphocytes (test code = Lymphocytes) 11.6 20.0-40.0 [place] 482272-06-28 12:33:00 Test Item Value Reference Range Interpretation Comments Monocytes (test code = Monocytes) 2.8 2.0-12.0 [place] [address]-06-28 12:33:00 Test Item Value Reference Range Interpretation Comments Eosinophils (test code = 0.4 See_Comment [A utomated message] The Eosinophils) system which ge nerated this result tra nsmitted reference range : <=4.0. The reference r samantha was not used to int erpret this result as normal/abnormal . [place] 482272-06-28 12:33:00 Test Item Value Reference Range Interpretation Comments Basophils (test code = 0.4 See_Comment [Aut omated message] The Basophils) system which ge nerated this result tra nsmitted reference range : <=1.0. The reference r samanhta was not used to int erpret this result as normal/abnormal . [facility] CenterGikjoviMUPGKRUVNA5342-97-88 12:33:00 Test Item Value Reference Range Interpretation Comments Neutrophils # (test code = Neutrophils 4.4 1.5-8.1 #) [facility] CenterXwmayogRIJMLGUIQC2385-99-49 12:33:00 Test Item Value Reference Range Interpretation Comments Lymphocytes # (test code = Lymphocytes 0.6 1.0-5.5 #) [place] 482272-06-28 12:33:00 Test Item Value Reference Range Interpretation Comments Monocytes # (test code 0.1 See_Comment [Aut omated message] The = Monocytes #) system which generated this result tra nsmitted reference range : <=0.8. The reference r samantha was not used to int erpret this result as normal/abnormal . [facility] CenterOvrvsxePKDFWHNRXW9532-08-10 12:33:00 Test Item Value Reference Range Interpretation Comments Macrocyte (test code = 1+ *ABN*(11/25/21 Macrocyte) 7:33 AM) [place] 482272-06-28 12:33:00 Test Item Value Reference Range Interpretation Comments WBC (test code = WBC) 5.2 3.7-10.4 [place] 482272-06-28 12:33:00 Test Item Value Reference Range Interpretation Comments RBC (test code = RBC) 2.18 4.70-6.10 [place] 482272-06-28 12:33:00 Test Item Value Reference Range Interpretation Comments Hgb (test code = Hgb) 7.8 14.0-18.0 [place] [address]-06-28 12:33:00 Test Item Value Reference Range Interpretation Comments Hct (test code = Hct) 23.6 42.0-54.0 [place] 482272-06-28 12:33:00 Test Item Value Reference Range Interpretation Comments MCV (test code = MCV) 108.4 80.0-94.0 [place] 482272-06-28 12:33:00 Test Item Value Reference Range Interpretation Comments MCH (test code = MCH) 35.9 pg 27.0-31.0 [place] 482272-06-28 12:33:00 Test Item Value Reference Range Interpretation Comments MCHC (test code = MCHC) 33.1 32.0-36.0 [place] 482272-06-28 12:33:00 Test Item Value Reference Range Interpretation Comments RDW (test code = RDW) 21.5 11.5-14.5 [place] 482272-06-28 12:33:00 Test Item Value Reference Range Interpretation Comments Platelet (test code = Platelet) 167 133-450 [place] 482272-06-28 12:33:00 Test Item Value Reference Range Interpretation Comments MPV (test code = MPV) 7.6 7.4-10.4 [facility]2022-06-28 11:17:00 Test Item Value Reference Range Interpretation Comments Vitamin B12 Lvl (test code = Vitamin 1508 B12 Lvl) [facility]2022-06-28 11:17:00 Test Item Value Reference Range Interpretation Comments Folate Lvl (test code = Folate Lvl) 22.3 [facility]2022-06-28 11:17:00 Test Item Value Reference Range Interpretation Comments Ferritin Lvl (test code = Ferritin Lvl) 1423 22-275 [place] 584952-06-28 11:17:00 Test Item Value Reference Range Interpretation Comments Glucose Lvl (test code = Glucose Lvl) 205 70-99 [place] 584952-06-28 11:17:00 Test Item Value Reference Range Interpretation Comments BUN (test code = BUN) 60 7-22 [place] 584952-06-28 11:17:00 Test Item Value Reference Range Interpretation Comments Creatinine Lvl (test code = Creatinine 8.46 0.50-1.40 Lvl) [place] 584952-06-28 11:17:00 Test Item Value Reference Range Interpretation Comments Sodium Lvl (test code = Sodium Lvl) 131 135-145 [place] 584952-06-28 11:17:00 Test Item Value Reference Range Interpretation Comments Potassium Lvl (test code = Potassium 5.2 3.5-5.1 Lvl) [place] 584952-06-28 11:17:00 Test Item Value Reference Range Interpretation Comments Chloride Lvl (test code = Chloride Lvl) 93 95-109 [facility] HealthCAROLIN[facility] PINEVILLETJCDC6930-84-07 11:17:00 Test Item Value Reference Range Interpretation Comments CO2 (test code = CO2) 29 24-32 [place] 584952-06-28 11:17:00 Test Item Value Reference Range Interpretation Comments Calcium Lvl (test code = Calcium Lvl) 8.7 8.5-10.5 [facility] HealthROBERT[facility] [address]21GWZJM9697-93-15 11:17:00 Test Item Value Reference Range Interpretation Comments Total Protein (test code = Total 6.0 6.4-8.4 Protein) [facility]2022-06-28 11:17:00 Test Item Value Reference Range Interpretation Comments Albumin Lvl (test code = Albumin Lvl) 2.6 3.5-5.0 [facility] [id number] 11:17:00 Test Item Value Reference Range Interpretation Comments ALT (test code = ALT) 43 See_Comment [Auto mated message] The system which ge nerated this result transmit swathi reference range : <=65. The reference range was not used to interpr et this result as deny l/abnormal. [facility] [id number] 11:17:00 Test Item Value Reference Range Interpretation Comments AST (test code = AST) 35 See_Comment [Auto mated message] The system which ge nerated this result transmit swathi reference range : <=37. The reference range was not used to interpr et this result as deny l/abnormal. [facility] [id number] 11:17:00 Test Item Value Reference Range Interpretation Comments Alk Phos (test code = Alk Phos) 385 39-136 [facility] [id number] 11:17:00 Test Item Value Reference Range Interpretation Comments Bili Total (test code = Bili Total) 1.2 0.2-1.3 [facility] [id number] 11:17:00 Test Item Value Reference Range Interpretation Comments AGAP (test code = AGAP) 14.2 10.0-20.0 [facility] [id number] 11:17:00 Test Item Value Reference Range Interpretation Comments B/C Ratio (test code = B/C Ratio) 7 1 6-25 [facility] [id number] 11:17:00 Test Item Value Reference Range Interpretation Comments Globulin (test code = Globulin) 3.4 2.7-4.2 [facility]2022-06-28 11:17:00 Test Item Value Reference Range Interpretation Comments A/G Ratio (test code = A/G Ratio) 0.8 1 0.7-1.6 [facility]2022-06-28 11:17:00 Test Item Value Reference Range Interpretation Comments eGFR (test code = eGFR) 6 [facility]2022-06-28 11:17:00 Test Item Value Reference Range Interpretation Comments Magnesium Lvl (test code = Magnesium 1.9 1.8-2.4 Lvl) [facility]2022-06-28 11:17:00 Test Item Value Reference Range Interpretation Comments LDH (test code = LDH) 297 98-192 [facility]2022-06-28 11:17:00 Test Item Value Reference Range Interpretation Comments Procalcitonin Lvl (test 0.63 See_Comment [Au tomated message] code = Procalcitonin Lvl) e system which generated this result transmitted ref erence range: <=0.10. The reference range was not used to interpr et this result as normal/abnormal . [facility] CenterKytkxwoNGCYEEZFBX3957-33-67 11:17:00 Test Item Value Reference Range Interpretation Comments D-Dimer (test code = D-Dimer) 5.33 [facility] AntonioAzvjqbgFATVXHVWHL9828-44-19 11:17:00 Test Item Value Reference Range Interpretation Comments Hep Bs Ag (test code Negative *NA*(11/25/21 = Hep Bs Ag) 6:17 AM) [facility] CenterNnlundyGTYVZXLZQT9902-48-84 11:17:00 Test Item Value Reference Range Interpretation Comments C-REACTIVE PROTEIN (test code = 134.0 C-REACTIVE PROTEIN) [facility] CenterFaoayrxJUFOHIKSXQ0951-87-21 11:17:00 Test Item Value Reference Range Interpretation Comments Interleukin 6 (test code = Interleukin 25.99 6) [facility]2022-06-28 11:17:00 Test Item Value Reference Range Interpretation Comments Vitamin B12 Lvl (test code = Vitamin 1508 B12 Lvl) [facility]2022-06-28 11:17:00 Test Item Value Reference Range Interpretation Comments Folate Lvl (test code = Folate Lvl) 22.3 [facility]2022-06-28 11:17:00 Test Item Value Reference Range Interpretation Comments Ferritin Lvl (test code = Ferritin Lvl) 1423 22275 [facility]2022-06-28 11:17:00 Test Item Value Reference Range Interpretation Comments Glucose Lvl (test code = Glucose Lvl) 205 70-99 [place] 584952-06-28 11:17:00 Test Item Value Reference Range Interpretation Comments BUN (test code = BUN) 60 7-22 [place] 584952-06-28 11:17:00 Test Item Value Reference Range Interpretation Comments Creatinine Lvl (test code = Creatinine 8.46 0.50-1.40 Lvl) [facility]2022-06-28 11:17:00 Test Item Value Reference Range Interpretation Comments Sodium Lvl (test code = Sodium Lvl) 131 135-145 [place] 584952-06-28 11:17:00 Test Item Value Reference Range Interpretation Comments Potassium Lvl (test code = Potassium 5.2 3.5-5.1 Lvl) [place] 584952-06-28 11:17:00 Test Item Value Reference Range Interpretation Comments Chloride Lvl (test code = Chloride Lvl) 93 95-109 [facility]2022-06-28 11:17:00 Test Item Value Reference Range Interpretation Comments CO2 (test code = CO2) 29 24-32 [place] 584952-06-28 11:17:00 Test Item Value Reference Range Interpretation Comments Calcium Lvl (test code = Calcium Lvl) 8.7 8.5-10.5 [facility]2022-06-28 11:17:00 Test Item Value Reference Range Interpretation Comments Total Protein (test code = Total 6.0 6.4-8.4 Protein) [place] 584952-06-28 11:17:00 Test Item Value Reference Range Interpretation Comments Albumin Lvl (test code = Albumin Lvl) 2.6 3.5-5.0 [facility]2022-06-28 11:17:00 Test Item Value Reference Range Interpretation Comments ALT (test code = ALT) 43 See_Comment [Auto mated message] The system which ge nerated this result transmit swathi reference range : <=65. The reference range was not used to interpr et this result as deny l/abnormal. [place] 584952-06-28 11:17:00 Test Item Value Reference Range Interpretation Comments AST (test code = AST) 35 See_Comment [Auto mated message] The system which ge nerated this result transmit swathi reference range : <=37. The reference range was not used to interpr et this result as deny l/abnormal. [place] 584952-06-28 11:17:00 Test Item Value Reference Range Interpretation Comments Alk Phos (test code = Alk Phos) 385 39-136 [place] 584952-06-28 11:17:00 Test Item Value Reference Range Interpretation Comments Bili Total (test code = Bili Total) 1.2 0.2-1.3 [place] 584952-06-28 11:17:00 Test Item Value Reference Range Interpretation Comments AGAP (test code = AGAP) 14.2 10.0-20.0 [place] 584952-06-28 11:17:00 Test Item Value Reference Range Interpretation Comments B/C Ratio (test code = B/C Ratio) 7 1 6-25 [place] 584952-06-28 11:17:00 Test Item Value Reference Range Interpretation Comments Globulin (test code = Globulin) 3.4 2.7-4.2 [place] 584952-06-28 11:17:00 Test Item Value Reference Range Interpretation Comments A/G Ratio (test code = A/G Ratio) 0.8 1 0.7-1.6 [place] 584952-06-28 11:17:00 Test Item Value Reference Range Interpretation Comments eGFR (test code = eGFR) 6 [place] 584952-06-28 11:17:00 Test Item Value Reference Range Interpretation Comments Magnesium Lvl (test code = Magnesium 1.9 1.8-2.4 Lvl) [place] 584952-06-28 11:17:00 Test Item Value Reference Range Interpretation Comments LDH (test code = LDH) 297 98-192 [place] 584952-06-28 11:17:00 Test Item Value Reference Range Interpretation Comments Procalcitonin Lvl (test 0.63 See_Comment [Au tomated message] code = Procalcitonin Lvl) Th e system which generated this result transmitted ref erence range: <=0.10. The reference range was not used to interpr et this result as normal/abnormal . [facility] CenterZfcdgjeKSKPXYVPVY8803-43-30 11:17:00 Test Item Value Reference Range Interpretation Comments D-Dimer (test code = D-Dimer) 5.33 [facility] AntonioKazbmlpYFBXCXMKXN3692-95-75 11:17:00 Test Item Value Reference Range Interpretation Comments Hep Bs Ag (test code Negative *NA*(11/25/21 = Hep Bs Ag) 6:17 AM) [facility] CenterIppadzaIJTOLOUMWE8609-25-95 11:17:00 Test Item Value Reference Range Interpretation Comments C-REACTIVE PROTEIN (test code = 134.0 C-REACTIVE PROTEIN) [facility] CenterYwsjyprENFJVCKCJP7612-70-29 11:17:00 Test Item Value Reference Range Interpretation Comments Interleukin 6 (test code = Interleukin 25.99 6) [facility]2022-06-28 11:17:00 Test Item Value Reference Range Interpretation Comments Vitamin B12 Lvl (test code = Vitamin 1508 B12 Lvl) [facility]2022-06-28 11:17:00 Test Item Value Reference Range Interpretation Comments Folate Lvl (test code = Folate Lvl) 22.3 [facility]2022-06-28 11:17:00 Test Item Value Reference Range Interpretation Comments Ferritin Lvl (test code = Ferritin Lvl) 1423 22-275 [facility]2022-06-28 11:17:00 Test Item Value Reference Range Interpretation Comments Glucose Lvl (test code = Glucose Lvl) 205 70-99 [facility]2022-06-28 11:17:00 Test Item Value Reference Range Interpretation Comments BUN (test code = BUN) 60 7-22 [facility]2022-06-28 11:17:00 Test Item Value Reference Range Interpretation Comments Creatinine Lvl (test code = Creatinine 8.46 0.50-1.40 Lvl) [facility]2022-06-28 11:17:00 Test Item Value Reference Range Interpretation Comments Sodium Lvl (test code = Sodium Lvl) 131 135-145 [facility]2022-06-28 11:17:00 Test Item Value Reference Range Interpretation Comments Potassium Lvl (test code = Potassium 5.2 3.5-5.1 Lvl) [place] 584952-06-28 11:17:00 Test Item Value Reference Range Interpretation Comments Chloride Lvl (test code = Chloride Lvl) 93 95-109 [place] 584952-06-28 11:17:00 Test Item Value Reference Range Interpretation Comments CO2 (test code = CO2) 29 24-32 [place] 584952-06-28 11:17:00 Test Item Value Reference Range Interpretation Comments Calcium Lvl (test code = Calcium Lvl) 8.7 8.5-10.5 [place] 584952-06-28 11:17:00 Test Item Value Reference Range Interpretation Comments Total Protein (test code = Total 6.0 6.4-8.4 Protein) [facility]2022-06-28 11:17:00 Test Item Value Reference Range Interpretation Comments Albumin Lvl (test code = Albumin Lvl) 2.6 3.5-5.0 [place] 584952-06-28 11:17:00 Test Item Value Reference Range Interpretation Comments ALT (test code = ALT) 43 See_Comment [Auto mated message] The system which ge nerated this result transmit swathi reference range : <=65. The reference range was not used to interpr et this result as deny l/abnormal. [facility]2022-06-28 11:17:00 Test Item Value Reference Range Interpretation Comments AST (test code = AST) 35 See_Comment [Auto mated message] The system which ge nerated this result transmit swathi reference range : <=37. The reference range was not used to interpr et this result as deny l/abnormal. [place] 584952-06-28 11:17:00 Test Item Value Reference Range Interpretation Comments Alk Phos (test code = Alk Phos) 385 39-136 [place] 584952-06-28 11:17:00 Test Item Value Reference Range Interpretation Comments Bili Total (test code = Bili Total) 1.2 0.2-1.3 [place] 584952-06-28 11:17:00 Test Item Value Reference Range Interpretation Comments AGAP (test code = AGAP) 14.2 10.0-20.0 [facility]2022-06-28 11:17:00 Test Item Value Reference Range Interpretation Comments B/C Ratio (test code = B/C Ratio) 7 1 6-25 [facility]2022-06-28 11:17:00 Test Item Value Reference Range Interpretation Comments Globulin (test code = Globulin) 3.4 2.7-4.2 [facility]2022-06-28 11:17:00 Test Item Value Reference Range Interpretation Comments A/G Ratio (test code = A/G Ratio) 0.8 1 0.7-1.6 [facility]2022-06-28 11:17:00 Test Item Value Reference Range Interpretation Comments eGFR (test code = eGFR) 6 [facility]2022-06-28 11:17:00 Test Item Value Reference Range Interpretation Comments Magnesium Lvl (test code = Magnesium 1.9 1.8-2.4 Lvl) [facility]2022-06-28 11:17:00 Test Item Value Reference Range Interpretation Comments LDH (test code = LDH) 297 98-192 [facility]2022-06-28 11:17:00 Test Item Value Reference Range Interpretation Comments Procalcitonin Lvl (test 0.63 See_Comment [Au tomated message] code = Procalcitonin Lvl) Th e system which generated this result transmitted ref erence range: <=0.10. The reference range was not used to interpr et this result as normal/abnormal . [facility] 11:17:00 Test Item Value Reference Range Interpretation Comments D-Dimer (test code = D-Dimer) 5.33 [facility] AntonioFwlzwxoVKASEKRWSN4925-19-70 11:17:00 Test Item Value Reference Range Interpretation Comments Hep Bs Ag (test code Negative *NA*(11/25/21 = Hep Bs Ag) 6:17 AM) [facility] AntonioEqiketcSALWLXCIHR4807-89-35 11:17:00 Test Item Value Reference Range Interpretation Comments C-REACTIVE PROTEIN (test code = 134.0 C-REACTIVE PROTEIN) [facility] AntonioOlgcjsvDMLIBLNMZQ4627-98-76 11:17:00 Test Item Value Reference Range Interpretation Comments Interleukin 6 (test code = Interleukin 25.99 6) [facility] [id number] 05:52:00 Test Item Value Reference Range Interpretation Comments RBC product (test code Product available = RBC product) 4(11/25/21 12:52 AM) [facility] BANK [id number] 05:52:00 Test Item Value Reference Range Interpretation Comments RBC product (test code Product available = RBC product) 4(11/25/21 12:52 AM) [facility] [id number] 05:52:00 Test Item Value Reference Range Interpretation Comments RBC product (test code Product available = RBC product) 4(11/25/21 12:52 AM) [facility]62 05:43:00 Test Item Value Reference Range Interpretation Comments Coronavirus (COVID-19) Detected MANUEL (test code = 8*ABN*(11/25/21 12:43 Coronavirus (COVID-19) AM) MANUEL) [facility] CenterGicmivxNCDXRPAJDW9542-15-61 05:43:00 Test Item Value Reference Range Interpretation Comments Coronavirus (COVID-19) Detected MANUEL (test code = 8*ABN*(11/25/21 12:43 Coronavirus (COVID-19) AM) MANUEL) [facility] CenterRsxlnhuTLQSMYZHVA6677-18-93 05:43:00 Test Item Value Reference Range Interpretation Comments Coronavirus (COVID-19) Detected MANUEL (test code = 8*ABN*(11/25/21 12:43 Coronavirus (COVID-19) AM) MANUEL) [facility] AND [id number] 05:23:00 Test Item Value Reference Range Interpretation Comments Occult Bld Stl (test Negative (11/25/21 12:23 code = Occult Bld Stl) AM) [facility] AND [id number] 05:23:00 Test Item Value Reference Range Interpretation Comments Occult Bld Stl (test Negative (11/25/21 12:23 code = Occult Bld Stl) AM) [facility] AND [id number] 05:23:00 Test Item Value Reference Range Interpretation Comments Occult Bld Stl (test Negative (11/25/21 12:23 code = Occult Bld Stl) AM) [facility] [id number] 04:12:00 Test Item Value Reference Range Interpretation Comments ABO/Rh (test code = ABO/Rh) AB POS [facility] [employer] BANK [id number] 04:12:00 Test Item Value Reference Range Interpretation Comments Antibody Scrn (test Negative (11/24/21 code = Antibody Scrn) 11:12 PM) [facility] [employer] [id number] 04:12:00 Test Item Value Reference Range Interpretation Comments Total CK (test code = Total CK) 86 12-191 [facility] [employer] [id number] 04:12:00 Test Item Value Reference Range Interpretation Comments HS Troponin I (test code = HS Troponin 316 I) [facility] [employer] [id number] 04:12:00 Test Item Value Reference Range Interpretation Comments Glucose Lvl (test code = Glucose Lvl) 261 70-99 [facility] [employer] [id number] 04:12:00 Test Item Value Reference Range Interpretation Comments BUN (test code = BUN) 60 7-22 [facility] [employer] [id number] 04:12:00 Test Item Value Reference Range Interpretation Comments Creatinine Lvl (test code = Creatinine 8.49 0.50-1.40 Lvl) [facility] [employer] [id number] 04:12:00 Test Item Value Reference Range Interpretation Comments Sodium Lvl (test code = Sodium Lvl) 133 135-145 [facility] [employer] [id number] 04:12:00 Test Item Value Reference Range Interpretation Comments Potassium Lvl (test code = Potassium 4.9 3.5-5.1 Lvl) [facility] [employer] [id number] 04:12:00 Test Item Value Reference Range Interpretation Comments Chloride Lvl (test code = Chloride Lvl) 93 95-109 [facility] [employer] [id number] 04:12:00 Test Item Value Reference Range Interpretation Comments CO2 (test code = CO2) 31 24-32 [facility] [employer] [id number] 04:12:00 Test Item Value Reference Range Interpretation Comments Calcium Lvl (test code = Calcium Lvl) 9.1 8.5-10.5 [facility] [employer] [id number] 04:12:00 Test Item Value Reference Range Interpretation Comments Total Protein (test code = Total 6.8 6.4-8.4 Protein) [facility] [employer] [id number] 04:12:00 Test Item Value Reference Range Interpretation Comments Albumin Lvl (test code = Albumin Lvl) 2.5 3.5-5.0 [place] 584952-06-28 04:12:00 Test Item Value Reference Range Interpretation Comments ALT (test code = ALT) 51 See_Comment [Auto mated message] The system which ge nerated this result transmit swathi reference range : <=65. The reference range was not used to interpr et this result as deny l/abnormal. [place] 584952-06-28 04:12:00 Test Item Value Reference Range Interpretation Comments AST (test code = AST) 36 See_Comment [Auto mated message] The system which ge nerated this result transmit swathi reference range : <=37. The reference range was not used to interpr et this result as deny l/abnormal. [place] 584952-06-28 04:12:00 Test Item Value Reference Range Interpretation Comments Alk Phos (test code = Alk Phos) 383 39-136 [facility] [id number] 04:12:00 Test Item Value Reference Range Interpretation Comments Bili Total (test code = Bili Total) 1.1 0.2-1.3 [place] 584952-06-28 04:12:00 Test Item Value Reference Range Interpretation Comments AGAP (test code = AGAP) 13.9 10.0-20.0 [place] 584952-06-28 04:12:00 Test Item Value Reference Range Interpretation Comments B/C Ratio (test code = B/C Ratio) 7 1 6-25 [place] 584952-06-28 04:12:00 Test Item Value Reference Range Interpretation Comments Globulin (test code = Globulin) 4.3 2.7-4.2 [facility] [id number] 04:12:00 Test Item Value Reference Range Interpretation Comments A/G Ratio (test code = A/G Ratio) 0.6 1 0.7-1.6 [place] 584952-06-28 04:12:00 Test Item Value Reference Range Interpretation Comments eGFR (test code = eGFR) 5 [facility] [id number] 04:12:00 Test Item Value Reference Range Interpretation Comments Procalcitonin Lvl (test 0.69 See_Comment [Au tomated message] code = Procalcitonin Lvl) Th e system which generated this result transmitted ref erence range: <=0.10. The reference range was not used to interpr et this result as normal/abnormal . [facility] CenterIbfhyfqOUHWMPDWGR7561-36-90 04:12:00 Test Item Value Reference Range Interpretation Comments WBC (test code = WBC) 4.1 3.7-10.4 [facility] CenterZicgosbJMDGIOYYEE6708-49-78 04:12:00 Test Item Value Reference Range Interpretation Comments RBC (test code = RBC) 1.78 4.70-6.10 [facility] CenterBeyqgklJGNDAQUIAB8567-64-12 04:12:00 Test Item Value Reference Range Interpretation Comments Hgb (test code = Hgb) 6.5 14.0-18.0 [facility] CenterBudpdfuRAGJYTOIFZ4753-56-35 04:12:00 Test Item Value Reference Range Interpretation Comments Hct (test code = Hct) 19.5 42.0-54.0 [facility] CenterNjyzruaJSHWTEVUOG4861-35-55 04:12:00 Test Item Value Reference Range Interpretation Comments MCV (test code = MCV) 110.0 80.0-94.0 [facility] CenterImmrmayPHTELUYSRQ9440-23-44 04:12:00 Test Item Value Reference Range Interpretation Comments MCH (test code = MCH) 36.5 pg 27.0-31.0 [facility] CenterMaarblcRGVMEDSHWY3251-64-59 04:12:00 Test Item Value Reference Range Interpretation Comments MCHC (test code = MCHC) 33.2 32.0-36.0 [facility] CenterLelbtnfFWRVSUKWNW4504-42-33 04:12:00 Test Item Value Reference Range Interpretation Comments RDW (test code = RDW) 19.0 11.5-14.5 [facility] CenterMxfszleHHQSCNABAP4807-57-52 04:12:00 Test Item Value Reference Range Interpretation Comments Platelet (test code = Platelet) 180 133-450 [facility] CenterGdtfbnhRZCUGYZVIK8611-84-90 04:12:00 Test Item Value Reference Range Interpretation Comments MPV (test code = MPV) 8.3 7.4-10.4 [facility] CenterPfdcwhlZJXMOZFBSC2850-53-55 04:12:00 Test Item Value Reference Range Interpretation Comments PTT (test code = PTT) 45.4 s 22.9-35.8 [facility] CenterUrogofkSOESXJGASB1737-29-59 04:12:00 Test Item Value Reference Range Interpretation Comments PT (test code = PT) 19.1 s 12.0-14.7 [place] 482272-06-28 04:12:00 Test Item Value Reference Range Interpretation Comments INR (test code = INR) 1.62 1 0.85-1.17 [facility] CenterVpuaoyjUTBPTYSEFQ4369-05-18 04:12:00 Test Item Value Reference Range Interpretation Comments RBC Morph (test code = See Note (11/24/21 RBC Morph) 11:12 PM) [facility] CenterTcklgrbHZALKLAQJA4210-88-12 04:12:00 Test Item Value Reference Range Interpretation Comments Plt Morph (test code = Normal (11/24/21 11:12 Plt Morph) PM) [place] 482272-06-28 04:12:00 Test Item Value Reference Range Interpretation Comments Segs (test code = Segs) 72.2 45.0-75.0 [place] 482272-06-28 04:12:00 Test Item Value Reference Range Interpretation Comments Lymphocytes (test code = Lymphocytes) 16.2 20.0-40.0 [facility] [id number] 04:12:00 Test Item Value Reference Range Interpretation Comments Monocytes (test code = Monocytes) 8.0 2.0-12.0 [facility] CenterXvwpvuoZPEXFTTPKF5943-96-10 04:12:00 Test Item Value Reference Range Interpretation Comments Eosinophils (test code = 2.7 See_Comment [A utomated message] The Eosinophils) system which ge nerated this result tra nsmitted reference range : <=4.0. The reference r samantha was not used to int erpret this result as normal/abnormal . [facility] CenterSpuoxioHDLYMKUPGI3695-78-21 04:12:00 Test Item Value Reference Range Interpretation Comments Basophils (test code = 0.9 See_Comment [Aut omated message] The Basophils) system which ge nerated this result tra nsmitted reference range : <=1.0. The reference r samantha was not used to int erpret this result as normal/abnormal . [place] 482272-06-28 04:12:00 Test Item Value Reference Range Interpretation Comments Neutrophils # (test code = Neutrophils 2.9 1.5-8.1 #) [place] 482272-06-28 04:12:00 Test Item Value Reference Range Interpretation Comments Lymphocytes # (test code = Lymphocytes 0.7 1.0-5.5 #) [facility]CvnmciaRLUUNCIDEJ8479-27-19 04:12:00 Test Item Value Reference Range Interpretation Comments Monocytes # (test code 0.3 See_Comment [Aut omated message] The = Monocytes #) system which generated this result tra nsmitted reference range : <=0.8. The reference r samantha was not used to int erpret this result as normal/abnormal . [facility] HospitalOhxsuvfYTTHLZZDIT0548-09-85 04:12:00 Test Item Value Reference Range Interpretation Comments Eosinophils # (test code 0.1 See_Comment [A utomated message] The = Eosinophils #) system whic h generated this result tra nsmitted reference range : <=0.5. The reference r samantha was not used to int erpret this result as normal/abnormal . [facility] HospitalAqfsmdxYQZBIHIUXJ0330-47-60 04:12:00 Test Item Value Reference Range Interpretation Comments Anisocyte (test code = 1+ *ABN*(11/24/21 Anisocyte) 11:12 PM) [facility] AntonioYkyjfwiKUNADENXYC1383-24-49 04:12:00 Test Item Value Reference Range Interpretation Comments Macrocyte (test code = 1+ *ABN*(11/24/21 Macrocyte) 11:12 PM) [facility] AntonioYwhqnyrYYGCJFIHRN0006-09-60 04:12:00 Test Item Value Reference Range Interpretation Comments Microcyte (test code = 1+ *ABN*(11/24/21 Microcyte) 11:12 PM) [facility] [id number] 04:12:00 Test Item Value Reference Range Interpretation Comments ABO/Rh (test code = ABO/Rh) AB POS [facility] [id number] 04:12:00 Test Item Value Reference Range Interpretation Comments Antibody Scrn (test Negative (11/24/21 code = Antibody Scrn) 11:12 PM) [facility]Win[facility]20[facility] 04:12:00 Test Item Value Reference Range Interpretation Comments Total CK (test code = Total CK) 86 12-191 [facility] AntonioC[facility] [id number] 04:12:00 Test Item Value Reference Range Interpretation Comments HS Troponin I (test code = HS Troponin 316 I) [place] 584952-06-28 04:12:00 Test Item Value Reference Range Interpretation Comments Glucose Lvl (test code = Glucose Lvl) 261 70-99 [place] 584952-06-28 04:12:00 Test Item Value Reference Range Interpretation Comments BUN (test code = BUN) 60 7-22 [place] 584952-06-28 04:12:00 Test Item Value Reference Range Interpretation Comments Creatinine Lvl (test code = Creatinine 8.49 0.50-1.40 Lvl) [place] 584952-06-28 04:12:00 Test Item Value Reference Range Interpretation Comments Sodium Lvl (test code = Sodium Lvl) 133 135-145 [place] 584952-06-28 04:12:00 Test Item Value Reference Range Interpretation Comments Potassium Lvl (test code = Potassium 4.9 3.5-5.1 Lvl) [place] 584952-06-28 04:12:00 Test Item Value Reference Range Interpretation Comments Chloride Lvl (test code = Chloride Lvl) 93 95-109 [place] 584952-06-28 04:12:00 Test Item Value Reference Range Interpretation Comments CO2 (test code = CO2) 31 24-32 [place] 584952-06-28 04:12:00 Test Item Value Reference Range Interpretation Comments Calcium Lvl (test code = Calcium Lvl) 9.1 8.5-10.5 [place] 584952-06-28 04:12:00 Test Item Value Reference Range Interpretation Comments Total Protein (test code = Total 6.8 6.4-8.4 Protein) [place] 584952-06-28 04:12:00 Test Item Value Reference Range Interpretation Comments Albumin Lvl (test code = Albumin Lvl) 2.5 3.5-5.0 [place] 584952-06-28 04:12:00 Test Item Value Reference Range Interpretation Comments ALT (test code = ALT) 51 See_Comment [Auto mated message] The system which ge nerated this result transmit swathi reference range : <=65. The reference range was not used to interpr et this result as deny l/abnormal. [place] 584952-06-28 04:12:00 Test Item Value Reference Range Interpretation Comments AST (test code = AST) 36 See_Comment [Auto mated message] The system which ge nerated this result transmit swathi reference range : <=37. The reference range was not used to interpr et this result as deny l/abnormal. [facility] [id number] 04:12:00 Test Item Value Reference Range Interpretation Comments Alk Phos (test code = Alk Phos) 383 39-136 [facility] [id number] 04:12:00 Test Item Value Reference Range Interpretation Comments Bili Total (test code = Bili Total) 1.1 0.2-1.3 [facility] [id number] 04:12:00 Test Item Value Reference Range Interpretation Comments AGAP (test code = AGAP) 13.9 10.0-20.0 [facility] [id number] 04:12:00 Test Item Value Reference Range Interpretation Comments B/C Ratio (test code = B/C Ratio) 7 1 6-25 [facility] [id number] 04:12:00 Test Item Value Reference Range Interpretation Comments Globulin (test code = Globulin) 4.3 2.7-4.2 [facility] [id number] 04:12:00 Test Item Value Reference Range Interpretation Comments A/G Ratio (test code = A/G Ratio) 0.6 1 0.7-1.6 [facility] Hospitalemocha Mobile HealthROBERTO VILLE [address]21UVJME7662-94-07 04:12:00 Test Item Value Reference Range Interpretation Comments eGFR (test code = eGFR) 5 [facility] [id number] 04:12:00 Test Item Value Reference Range Interpretation Comments Procalcitonin Lvl (test 0.69 See_Comment [Au tomated message] code = Procalcitonin Lvl) Th e system which generated this result transmitted ref erence range: <=0.10. The reference range was not used to interpr et this result as normal/abnormal . [facility] AntonioGrkrkxfLGKVNRHOGU1167-12-83 04:12:00 Test Item Value Reference Range Interpretation Comments WBC (test code = WBC) 4.1 3.7-10.4 [place] 482272-06-28 04:12:00 Test Item Value Reference Range Interpretation Comments RBC (test code = RBC) 1.78 4.70-6.10 [facility] CenterPyfzgxlPYIFYYZTRW3116-60-83 04:12:00 Test Item Value Reference Range Interpretation Comments Hgb (test code = Hgb) 6.5 14.0-18.0 [facility] CenterCpqrkidNMQEWPFOQL5685-79-49 04:12:00 Test Item Value Reference Range Interpretation Comments Hct (test code = Hct) 19.5 42.0-54.0 [facility] CenterPbrplshYKHHKSLMEW5406-21-00 04:12:00 Test Item Value Reference Range Interpretation Comments MCV (test code = MCV) 110.0 80.0-94.0 [facility] CenterPrtcxsaOCKMPIETWT3572-27-01 04:12:00 Test Item Value Reference Range Interpretation Comments MCH (test code = MCH) 36.5 pg 27.0-31.0 [facility] CenterCgejbffIBZYFRBISK4130-02-97 04:12:00 Test Item Value Reference Range Interpretation Comments MCHC (test code = MCHC) 33.2 32.0-36.0 [facility] CenterLntlmuoBROOLBWRGS2228-38-96 04:12:00 Test Item Value Reference Range Interpretation Comments RDW (test code = RDW) 19.0 11.5-14.5 [facility] CenterZakryxuSZTKKQUUYY8040-14-87 04:12:00 Test Item Value Reference Range Interpretation Comments Platelet (test code = Platelet) 180 133-450 [facility] CenterHcbawkxLUAIZTDBDE6674-34-59 04:12:00 Test Item Value Reference Range Interpretation Comments MPV (test code = MPV) 8.3 7.4-10.4 [facility] CenterDyjycowDQFINUXNCX5829-38-71 04:12:00 Test Item Value Reference Range Interpretation Comments PTT (test code = PTT) 45.4 s 22.9-35.8 [facility] CenterLucdybrKKLGIQVIMT9557-61-31 04:12:00 Test Item Value Reference Range Interpretation Comments PT (test code = PT) 19.1 s 12.0-14.7 [facility] CenterMatkbybTXCCZMZMNB4036-16-90 04:12:00 Test Item Value Reference Range Interpretation Comments INR (test code = INR) 1.62 1 0.85-1.17 [facility] CenterMrhpwkmEPDGUSCIUH2596-04-02 04:12:00 Test Item Value Reference Range Interpretation Comments RBC Morph (test code = See Note (11/24/21 RBC Morph) 11:12 PM) [place] 482272-06-28 04:12:00 Test Item Value Reference Range Interpretation Comments Plt Morph (test code = Normal (11/24/21 11:12 Plt Morph) PM) [place] 482272-06-28 04:12:00 Test Item Value Reference Range Interpretation Comments Segs (test code = Segs) 72.2 45.0-75.0 [place] 482272-06-28 04:12:00 Test Item Value Reference Range Interpretation Comments Lymphocytes (test code = Lymphocytes) 16.2 20.0-40.0 [place] 482272-06-28 04:12:00 Test Item Value Reference Range Interpretation Comments Monocytes (test code = Monocytes) 8.0 2.0-12.0 [place] 482272-06-28 04:12:00 Test Item Value Reference Range Interpretation Comments Eosinophils (test code = 2.7 See_Comment [A utomated message] The Eosinophils) system which ge nerated this result tra nsmitted reference range : <=4.0. The reference r samantha was not used to int erpret this result as normal/abnormal . [facility] CenterZhqcwrvKWFOAJDROB4461-17-57 04:12:00 Test Item Value Reference Range Interpretation Comments Basophils (test code = 0.9 See_Comment [Aut omated message] The Basophils) system which ge nerated this result tra nsmitted reference range : <=1.0. The reference r samantha was not used to int erpret this result as normal/abnormal . [facility] CenterXrthtppVYNNWJDVGX2552-49-45 04:12:00 Test Item Value Reference Range Interpretation Comments Neutrophils # (test code = Neutrophils 2.9 1.5-8.1 #) [facility] CenterBjpgbvpMFBIIXKVVP2058-31-98 04:12:00 Test Item Value Reference Range Interpretation Comments Lymphocytes # (test code = Lymphocytes 0.7 1.0-5.5 #) [place] [id number] 04:12:00 Test Item Value Reference Range Interpretation Comments Monocytes # (test code 0.3 See_Comment [Aut omated message] The = Monocytes #) system which generated this result tra nsmitted reference range : <=0.8. The reference r samantha was not used to int erpret this result as normal/abnormal . [place] [id number] 04:12:00 Test Item Value Reference Range Interpretation Comments Eosinophils # (test code 0.1 See_Comment [A utomated message] The = Eosinophils #) system whic h generated this result tra nsmitted reference range : <=0.5. The reference r samantha was not used to int erpret this result as normal/abnormal . [id number] 04:12:00 Test Item Value Reference Range Interpretation Comments Anisocyte (test code = 1+ *ABN*(11/24/21 Anisocyte) 11:12 PM) [facility]qudiljGRJQHEBPBE9530-97-37 04:12:00 Test Item Value Reference Range Interpretation Comments Macrocyte (test code = 1+ *ABN*(11/24/21 Macrocyte) 11:12 PM) [id number] 04:12:00 Test Item Value Reference Range Interpretation Comments Microcyte (test code = 1+ *ABN*(11/24/21 Microcyte) 11:12 PM) [facility] [employer] [id number] 04:12:00 Test Item Value Reference Range Interpretation Comments ABO/Rh (test code = ABO/Rh) AB POS [facility] [employer] [id number] 04:12:00 Test Item Value Reference Range Interpretation Comments Antibody Scrn (test Negative (11/24/21 code = Antibody Scrn) 11:12 PM) [facility] [employer]2022-06-28 04:12:00 Test Item Value Reference Range Interpretation Comments Total CK (test code = Total CK) 86 12-191 [facility] [employer]2022-06-28 04:12:00 Test Item Value Reference Range Interpretation Comments HS Troponin I (test code = HS Troponin 316 I) [facility] [employer]2022-06-28 04:12:00 Test Item Value Reference Range Interpretation Comments Glucose Lvl (test code = Glucose Lvl) 261 70-99 [facility]2022-06-28 04:12:00 Test Item Value Reference Range Interpretation Comments BUN (test code = BUN) 60 7-22 IGIGI2022-06-28 04:12:00 Test Item Value Reference Range Interpretation Comments Creatinine Lvl (test code = Creatinine 8.49 0.50-1.40 Lvl) [place] [id number] 04:12:00 Test Item Value Reference Range Interpretation Comments Sodium Lvl (test code = Sodium Lvl) 133 135-145 [place] [id number] 04:12:00 Test Item Value Reference Range Interpretation Comments Potassium Lvl (test code = Potassium 4.9 3.5-5.1 Lvl) [place] [id number] 04:12:00 Test Item Value Reference Range Interpretation Comments Chloride Lvl (test code = Chloride Lvl) 93 95-109 [place] [id number] 04:12:00 Test Item Value Reference Range Interpretation Comments CO2 (test code = CO2) 31 24-32 [place] [id number] 04:12:00 Test Item Value Reference Range Interpretation Comments Calcium Lvl (test code = Calcium Lvl) 9.1 8.5-10.5 [place] [id number] 04:12:00 Test Item Value Reference Range Interpretation Comments Total Protein (test code = Total 6.8 6.4-8.4 Protein) [place] [id number] 04:12:00 Test Item Value Reference Range Interpretation Comments Albumin Lvl (test code = Albumin Lvl) 2.5 3.5-5.0 [place] [id number] 04:12:00 Test Item Value Reference Range Interpretation Comments ALT (test code = ALT) 51 See_Comment [Auto mated message] The system which ge nerated this result transmit swathi reference range : <=65. The reference range was not used to interpr et this result as deny l/abnormal. [place] [id number] 04:12:00 Test Item Value Reference Range Interpretation Comments AST (test code = AST) 36 See_Comment [Auto mated message] The system which ge nerated this result transmit swathi reference range : <=37. The reference range was not used to interpr et this result as deny l/abnormal. [place] [id number] 04:12:00 Test Item Value Reference Range Interpretation Comments Alk Phos (test code = Alk Phos) 383 39-136 [place] [id number] 04:12:00 Test Item Value Reference Range Interpretation Comments Bili Total (test code = Bili Total) 1.1 0.2-1.3 [place] 584952-06-28 04:12:00 Test Item Value Reference Range Interpretation Comments AGAP (test code = AGAP) 13.9 10.0-20.0 [place] [id number] 04:12:00 Test Item Value Reference Range Interpretation Comments B/C Ratio (test code = B/C Ratio) 7 1 6-25 [place] [id number] 04:12:00 Test Item Value Reference Range Interpretation Comments Globulin (test code = Globulin) 4.3 2.7-4.2 [place] 584952-06-28 04:12:00 Test Item Value Reference Range Interpretation Comments A/G Ratio (test code = A/G Ratio) 0.6 1 0.7-1.6 [place] 97464-06-28 04:12:00 Test Item Value Reference Range Interpretation Comments eGFR (test code = eGFR) 5 [place] [id number] 04:12:00 Test Item Value Reference Range Interpretation Comments Procalcitonin Lvl (test 0.69 See_Comment [Au tomated message] code = Procalcitonin Lvl) Th e system which generated this result transmitted ref erence range: <=0.10. The reference range was not used to interpr et this result as normal/abnormal . [place] [id number] 04:12:00 Test Item Value Reference Range Interpretation Comments WBC (test code = WBC) 4.1 3.7-10.4 [place] 482272-06-28 04:12:00 Test Item Value Reference Range Interpretation Comments RBC (test code = RBC) 1.78 4.70-6.10 [place] 957[address]-06-28 04:12:00 Test Item Value Reference Range Interpretation Comments Hgb (test code = Hgb) 6.5 14.0-18.0 [place] [address]-06-28 04:12:00 Test Item Value Reference Range Interpretation Comments Hct (test code = Hct) 19.5 42.0-54.0 [place] [address]86-06-28 04:12:00 Test Item Value Reference Range Interpretation Comments MCV (test code = MCV) 110.0 80.0-94.0 [facility] CenterLbbutzjRZDRZQSHZI5800-41-92 04:12:00 Test Item Value Reference Range Interpretation Comments MCH (test code = MCH) 36.5 pg 27.0-31.0 [facility] CenterFztyxqmBWTXOJCOPZ0035-13-18 04:12:00 Test Item Value Reference Range Interpretation Comments MCHC (test code = MCHC) 33.2 32.0-36.0 [facility] CenterLfwywisCVGDJFXWSB1028-70-13 04:12:00 Test Item Value Reference Range Interpretation Comments RDW (test code = RDW) 19.0 11.5-14.5 [facility] CenterSpqxygcCNIUZVUPNG6576-45-51 04:12:00 Test Item Value Reference Range Interpretation Comments Platelet (test code = Platelet) 180 133-450 [facility] CenterKyncmfjFRFRCZELPG1236-58-08 04:12:00 Test Item Value Reference Range Interpretation Comments MPV (test code = MPV) 8.3 7.4-10.4 [facility] CenterGmfhyudQHGVXXRCTP1868-43-21 04:12:00 Test Item Value Reference Range Interpretation Comments PTT (test code = PTT) 45.4 s 22.9-35.8 [facility] CenterIggjkwdGAPWJFICBF6711-78-15 04:12:00 Test Item Value Reference Range Interpretation Comments PT (test code = PT) 19.1 s 12.0-14.7 [facility] CenterEulkappKBIWFZVTUC4820-77-61 04:12:00 Test Item Value Reference Range Interpretation Comments INR (test code = INR) 1.62 1 0.85-1.17 [facility] CenterJmcmcxpXCTWQSZIUH8186-65-12 04:12:00 Test Item Value Reference Range Interpretation Comments RBC Morph (test code = See Note (11/24/21 RBC Morph) 11:12 PM) [facility] CenterSgljrbsYXHVQGBIZY2312-74-39 04:12:00 Test Item Value Reference Range Interpretation Comments Plt Morph (test code = Normal (11/24/21 11:12 Plt Morph) PM) [facility] C[id number] 04:12:00 Test Item Value Reference Range Interpretation Comments Segs (test code = Segs) 72.2 45.0-75.0 [facility] CenterAeiiwrmJYDHVUIMMN7259-81-79 04:12:00 Test Item Value Reference Range Interpretation Comments Lymphocytes (test code = Lymphocytes) 16.2 20.0-40.0 [facility] [id number] 04:12:00 Test Item Value Reference Range Interpretation Comments Monocytes (test code = Monocytes) 8.0 2.0-12.0 [facility] CenterFdmzhimMWGACEKYEY7466-98-55 04:12:00 Test Item Value Reference Range Interpretation Comments Eosinophils (test code = 2.7 See_Comment [A utomated message] The Eosinophils) system which ge nerated this result tra nsmitted reference range : <=4.0. The reference r samantha was not used to int erpret this result as normal/abnormal . [facility] [id number] 04:12:00 Test Item Value Reference Range Interpretation Comments Basophils (test code = 0.9 See_Comment [Aut omated message] The Basophils) system which ge nerated this result tra nsmitted reference range : <=1.0. The reference r samantha was not used to int erpret this result as normal/abnormal . [facility] CenterEukjubaIGSRDFRVWN8624-11-62 04:12:00 Test Item Value Reference Range Interpretation Comments Neutrophils # (test code = Neutrophils 2.9 1.5-8.1 #) [facility] CenterOmrjaetPIIDLGTQPB2282-40-23 04:12:00 Test Item Value Reference Range Interpretation Comments Lymphocytes # (test code = Lymphocytes 0.7 1.0-5.5 #) [facility] [id number] 04:12:00 Test Item Value Reference Range Interpretation Comments Monocytes # (test code 0.3 See_Comment [Aut omated message] The = Monocytes #) system which generated this result tra nsmitted reference range : <=0.8. The reference r samantha was not used to int erpret this result as normal/abnormal . [facility] C[id number] 04:12:00 Test Item Value Reference Range Interpretation Comments Eosinophils # (test code 0.1 See_Comment [A utomated message] The = Eosinophils #) system whic h generated this result tra nsmitted reference range : <=0.5. The reference r samantha was not used to int erpret this result as normal/abnormal . [facility] Cent[id number] 04:12:00 Test Item Value Reference Range Interpretation Comments Anisocyte (test code = 1+ *ABN*(11/24/21 Anisocyte) 11:12 PM) [facility] [id number] 04:12:00 Test Item Value Reference Range Interpretation Comments Macrocyte (test code = 1+ *ABN*(11/24/21 Macrocyte) 11:12 PM) [id number] 04:12:00 Test Item Value Reference Range Interpretation Comments Microcyte (test code = 1+ *ABN*(11/24/21 Microcyte) 11:12 PM) [facility] [id number] 00:00:00 Test Item Value Reference Range Interpretation Comments A1C (test code = 4548-4) 8.8 HEMOGLOBIN [id number] 00:00:00 Test Item Value Reference Range Interpretation Comments A1C (test code = 4548-4) 8.3 HEMOGLOBIN [id number] 00:00:00 Test Item Value Reference Range Interpretation Comments A1C (test code = 4548-4) 10.3
[2022-10-31 13:39] LABS: Hematocrit 18.3 % (39.6-49.0); Lymphocytes % 23.3 % (15.3-44.8); MCV 84.3 fL (80-100); MPV 6.9 fL (7.6-11.3); RBC Red Blood Cell Count 2.17 M/uL (4.33-5.43)
[2022-10-31 13:53] LABS: Potassium 4.5 mEq/L (3.5-5.1)
[2022-10-31] MEDS ORDERED: NA CHLORIDE 0.9% 500 ML ONE (14:34)
[2022-10-31] MEDS ORDERED: FLEET ENEMA ADULT PR ONE (15:58)
--- NOTE | 2022-10-31 21:06 | EDPHYS ---
Physician Documentation [facility] Name: Guzman Mayers Age: 77 yrs Sex: Male : 1945 Arrival Date: 10/31/2022 Time: 13:00 Bed 3 Private MD: ED Physician Mohinder Valenzuela HPI: 10/31 13:17 This 77 yrs old Male presents to ER via Wheelchair with complaints of jmm Constipation, Abdominal Pain. 13:17 This is a 77-year-old male with history of end-stage renal disease, CHF, COPD, diabetes jmm mellitus the presents emerged department with complaints of constipation. Patient was evaluated at [facility] and advised of the need to transfer due to low hemoglobin level. They left AMA. Patient denies weakness or fatigue. Denies any dark tarry stools. Family states that the patient recently had an endoscopy performed by Dr. Vidal that did not reveal a bleed or ulcer.. Historical: - Allergies: 13:16 Codeine; ll1 13:16 GABAPENTIN; ll1 - PMHx: 13:16 ADD/ADHD; CHF; CKD; COPD; Diabetes - IDDM; Dialysis; MWF; dialysis tues, thurs, sat, ll1 uses o2 when sleeping.; High Cholesterol; HTN; Hypertension; - Immunization history:: Adult Immunizations up to date. - Social history:: Smoking status: Patient denies any tobacco usage or history of. ROS: 13:17 Constitutional: Negative for fever, chills, and weight loss, Cardiovascular: Negative jmm for chest pain, palpitations, and edema, Respiratory: Negative for shortness of breath, cough, wheezing, and pleuritic chest pain. 13:17 Abdomen/GI: Positive for rectal pain. 13:17 All other systems are negative. Exam: 13:17 Constitutional: This is a well developed, well nourished patient who is awake, alert, jmm and in no acute distress. Head/Face: atraumatic. Eyes: EOMI, no conjunctival erythema appreciated ENT: Moist Mucus Membranes Neck: Trachea midline, Supple Chest/axilla: Normal chest wall appearance and motion. Cardiovascular: Regular rate and rhythm. No edema appreciated Respiratory: Normal respirations, no respiratory distress appreciated Abdomen/GI: Non distended Back: Normal ROM 13:17 Skin: General appearance color normal MS/ Extremity: Moves all extremities, no obvious deformities appreciated, no edema noted to the lower extremities Neuro: Awake and alert Psych: Behavior is normal, Mood is normal, Patient is cooperative and pleasant 13:17 Abdomen/GI: Rectal exam: rectal tone normal, Stool: normal, fecal impaction, that is moderate. Vital Signs: 13:16 BP 149 / 88; Pulse 70; Resp 18; Temp 98.2; Pulse Ox 98% ; ll1 13:49 BP 125 / 48; Pulse 78; Resp 16 S; Pulse Ox 95% on R/A; kc6 14:32 BP 137 / 34; Pulse 76; Resp 15; Pulse Ox 96% on R/A; ld1 15:30 BP 137 / 47; Pulse 76; Resp 21; Pulse Ox 94% on R/A; ld1 16:16 BP 137 / 47; Pulse 86; Resp 23; Pulse Ox 93% on R/A; ld1 16:50 BP 147 / 58; Pulse 76; Resp 15; Pulse Ox 93% on R/A; ld1 17:17 BP 139 / 53; Pulse 76; Resp 14; Pulse Ox 91% on R/A; ld1 18:02 BP 149 / 59; Pulse 76; Resp 25; Pulse Ox 94% on R/A; ld1 18:39 BP 142 / 56; Pulse 76; Resp 18; Pulse Ox 94% on R/A; ld1 22:04 vc1 22:04 See transfusion sheet vc1 MDM: 13:17 Patient medically screened. [facility] 16:36 Data reviewed: vital signs, nurses notes. [facility] 16:36 Consideration of Admission/Observation Escalation of care including [facility] admission/observation considered. I considered the following discharge prescriptions or medication management in the emergency department Medications were administered in the Emergency Department. See MAR. External Records Reviewed: Outside ED record: [facility]. Counseling: I had a detailed discussion with the patient and/or guardian regarding: the historical points, exam findings, and any diagnostic results supporting the discharge/admit diagnosis. Counseling: I had a detailed discussion with the patient and/or guardian regarding: lab results, radiology results, the need for further work-up and treatment in the hospital, the need to transfer to another facility. Refusal of service: The patient/guardian displays adequate decision making capability and despite a detailed discussion of alternatives, benefits, risks, and consequences refuses: Admission to the hospital for further work-up and treatment. ED course: Patient was able to have a full bowel movement while in the ED. 2 units of PRBCs given. Patient refused transfer for GI evaluation. Family is aware. Family and patient both understood the consequences. Otherwise given strict return precautions. Patient understood and agrees plan of care. 10/31 13:30 Order name: CBC with Diff; Complete Time: 13:45 [facility] 10/31 13:30 Order name: BMP; Complete Time: 13:54 [facility] 10/31 13:54 Order name: Type And Screen [facility] 10/31 14:02 Order name: Packed RBC Leukored [facility] 10/31 13:30 Order name: Saline Lock; Complete Time: 13:32 [facility] 10/31 14:01 Order name: Misc. Order: give apple juice/prune juice/pad of butter; Complete Time: [facility] 14:22 Administered Medications: No medications were administered Disposition Summary: 10/31/22 21:05 Discharge Ordered Location: Home [facility] Condition: Stable [facility] Diagnosis - Anemia, unspecified jmm - Fecal impaction - Resolved jm Followup: jm - With: Private Physician - When: 2 - 3 days - Reason: Recheck today's complaints, Continuance of care, Re-evaluation by your physician Discharge Instructions: - Discharge Summary Sheet [facility] - Anemia jm - Blood Transfusion, Adult jm - Fecal Impaction [facility] Forms: - Medication Reconciliation Form [facility] - Thank You Letter jmm - Antibiotic Education jmm - Prescription Opioid Use [facility] Signatures: Dispatcher [employer] EDMT Héctor Lopez PA PA jmm Lewis, Lynsay, RN RN ll1
--- NOTE | 2022-10-31 21:06 | ER ---
Nurse's Notes [facility] Name: Guzman Mayers Age: 77 yrs Sex: Male : 1945 Arrival Date: 10/31/2022 Time: 13:00 Bed 3 Private MD: Diagnosis: Anemia, unspecified;Fecal impaction-Resolved Presentation: 10/31 13:16 Chief complaint: Patient states: Was at [facility]. Has abdominal pain and needs a ll1 transfusion. Ebola Screen: Patient denies travel to an Ebola-affected area in the 21 days before illness onset. Initial Sepsis Screen: Does the patient meet any 2 criteria? No. Patient's initial sepsis screen is negative. Does the patient have a suspected source of infection? Yes: Acute abdominal pain. Risk Assessment: Do you want to hurt yourself or someone else? Patient reports no desire to harm self or others. Onset of symptoms is unknown. 13:16 Method Of Arrival: Wheelchair ll1 13:16 Acuity: CHICHO 2 ll1 Historical: - Allergies: 13:16 Codeine; ll1 13:16 GABAPENTIN; ll1 - PMHx: 13:16 ADD/ADHD; CHF; CKD; COPD; Diabetes - IDDM; Dialysis; MWF; dialysis tues, thurs, sat, ll1 uses o2 when sleeping.; High Cholesterol; HTN; Hypertension; - Immunization history:: Adult Immunizations up to date. - Social history:: Smoking status: Patient denies any tobacco usage or history of. Screenin:46 [facility] ED Fall Risk Assessment (Adult) History of falling in the last 3 months, kc6 including since admission No falls in past 3 months (0 pts) Confusion or Disorientation No (0 pts) Intoxicated or Sedated No (0 pts) Impaired Gait No (0 pts) Mobility Assist Device Used No (0 pt) Altered Elimination No (0 pt) Score/Fall Risk Level 0 - 2 = Low Risk Oriented to surroundings, Maintained a safe environment, Educated pt \T\ family on fall prevention, incl call for assistance when getting out of bed, Assessed \T\ reinforced patient's understanding of fall precautions, Hourly rounding (assess needs \T\ fall precautionary measures) done. Abuse screen: Denies threats or abuse. Denies injuries from another. Nutritional screening: No deficits noted. Tuberculosis screening: No symptoms or risk factors identified. Assessment: 13:45 General: Appears in no apparent distress. comfortable, Behavior is calm, cooperative, kc6 appropriate for age. Pain: Complains of pain in abdomen. Neuro: [place] Agitation-Sedation Scale (RASS): 0 - Alert and Calm Level of Consciousness is awake, alert, obeys commands, Oriented to person, place, time, situation, Appropriate for age. Cardiovascular: Capillary refill < 3 seconds. Respiratory: Airway is patent Trachea midline Respiratory effort is even, unlabored, Respiratory pattern is regular, symmetrical. GI: Abdomen is flat, non-distended, Bowel sounds present X 4 quads. Abd is soft and non tender X 4 quads. Reports constipation, last bm x5 days ago. : No signs and/or symptoms were reported regarding the genitourinary system. EENT: No signs and/or symptoms were reported regarding the EENT system. Derm: No signs and/or symptoms reported regarding the dermatologic system. Skin is intact, Skin is pale. Musculoskeletal: No signs and/or symptoms reported regarding the musculoskeletal system. Circulation, motion, and sensation intact. Capillary refill < 3 seconds, Range of motion: intact in all extremities. 13:49 Reassessment: Emir Mayers (son) [phone]. kc6 15:30 Reassessment: Patient appears in no apparent distress at this time. No changes from ld1 previously documented assessment. Patient and/or family updated on plan of care and expected duration. Pain level reassessed. Patient is alert, oriented x 3, equal unlabored respirations, skin warm/dry/pink. Vital Signs: 13:16 BP 149 / 88; Pulse 70; Resp 18; Temp 98.2; Pulse Ox 98% ; ll1 13:49 BP 125 / 48; Pulse 78; Resp 16 S; Pulse Ox 95% on R/A; kc6 14:32 BP 137 / 34; Pulse 76; Resp 15; Pulse Ox 96% on R/A; ld1 15:30 BP 137 / 47; Pulse 76; Resp 21; Pulse Ox 94% on R/A; ld1 16:16 BP 137 / 47; Pulse 86; Resp 23; Pulse Ox 93% on R/A; ld1 16:50 BP 147 / 58; Pulse 76; Resp 15; Pulse Ox 93% on R/A; ld1 17:17 BP 139 / 53; Pulse 76; Resp 14; Pulse Ox 91% on R/A; ld1 18:02 BP 149 / 59; Pulse 76; Resp 25; Pulse Ox 94% on R/A; ld1 18:39 BP 142 / 56; Pulse 76; Resp 18; Pulse Ox 94% on R/A; ld1 22:04 vc1 22:04 See transfusion sheet vc1 ED Course: 13:02 Patient arrived in ED. rg4 13:03 Héctor Lopez PA is PHCP. dagmar 13:03 Mohinder Valenzuela MD is Attending Physician. [facility] 13:15 Arm band placed on Patient placed in an exam room, on a stretcher. ll1 13:17 Triage completed. 1 13:38 Montse Cai, GILSON is Primary Nurse. ld1 13:39 BMP Sent. ld1 13:39 CBC with Diff Sent. ld1 13:46 Patient has correct armband on for positive identification. Placed in gown. Bed in low kc6 position. Call light in reach. Side rails up X2. Adult w/ patient. 13:46 Inserted saline lock: 20 gauge in right antecubital area, using aseptic technique. kc6 Blood collected. 16:15 Assisted to bedside commode. Cleaned of incontinence. Linen changed. ld1 18:39 Cleaned of incontinence. ld1 20:42 role handed off by Hollie Comsb, GILSON 20:43 Primary Nurse role handed off by Montse Cai, GILSON 22:01 No provider procedures requiring assistance completed. IV discontinued, intact, vc1 bleeding controlled, No redness/swelling at site. Pressure dressing applied. 22:04 Omaira Fisher, GILSON is Primary Nurse. vc1 Administered Medications: No medications were administered Medication: 22:02 VIS not applicable for this client. vc1 Outcome: 21:05 Discharge ordered by . josiah 22:01 Discharged to home via wheelchair. vc1 22:01 Condition: improved 22:01 Discharge instructions given to patient, Instructed on discharge instructions, follow up and referral plans. Demonstrated understanding of instructions, follow-up care. 22:04 Patient left the ED. vc1 Signatures: Héctor Lopez PA PA jmm Garcia, Rubi rg4 Devin Lazo RN RN [facility] Montse Cai RN RN ld1 Ania Green Vanessa, RN RN vc1 Hollie Combs, RN RN kc6
[2022-10-31 23:27] VITALS: TEMP 98.2
[2022-10-31 23:35] VITALS: O2SAT 94
[2022-10-31 23:36] VITALS: BP 142/56
--- NOTE | 2022-11-02 10:18 | EKG ---
Test Date: 2022-10-31 Test Time: 13:27:04 Foil Operator: Jai BANKS MEASUREMENT RESULTS: Intervals: Rate: 83 [place]: QRSD: 170 QT: 444 QTc: 521 [place]: P: [place]: QRS: 247 T: -4 INTERPRETIVE STATEMENTS: Undetermined rhythm Right bundle branch block Anterior infarct, age undetermined Abnormal ECG Compared to ECG 09/29/2022 19:41:38 Atrial fibrillation no longer present Left anterior fascicular block no longer present Bifascicular block no longer present Myocardial infarct finding still present Electronically Signed On 11-02-22 10:14:05 CDT by Francisco Saucedo
== END 2022-10-31 22:04 | disposition home or self-care (01) ==
LOC: ER 13:00
PROC: 30233N1 Transfusion of Nonautologous Red Blood Cells into Peripheral Vein, Percutaneous Approach (ICD-10-PCS; principal; 2022-10-31)
DX: D64.9 Anemia, unspecified (principal); K56.41 Fecal impaction; E11.22 Type 2 diabetes mellitus with diabetic chronic kidney disease; I13.2 Hypertensive heart and chronic kidney disease with heart failure and with stage 5 chronic kidney disease, or end stage renal disease; I50.9 Heart failure, unspecified; N18.6 End stage renal disease; Z99.2 Dependence on renal dialysis; Z88.5 Allergy status to narcotic agent; Z88.8 Allergy status to other drugs, medicaments and biological substances
CPT/HCPCS: 93005; 85025; 80048; 36415; 86900; 86850; 86901; 86920; 99284; 36430; P9016 ×2; J7040

== ENCOUNTER 2022-11-05 15:38 | Emergency (ER) | payer OTHER, BC ==
--- OUTSIDE RECORDS SUMMARY | 2022-11-05 16:00 | XMS REPORT | Continuity of Care Document ---
:1945 Author Organization [facility] t Address [address] [place] [address] Care Team Providers Name Role Phone LA FORTUNE Primary Care Physician Unavailable La Fortune Attending Clinician Unavailable [id number] Attending Clinician Unavailable RONNIE AYALA Attending Clinician Unavailable Ronnie Mendoza Attending Clinician Ubaldo Davis RN Attending Clinician Unavailable MARIANNA BARBOUR Attending Clinician [...] Unavailable CHILANGO ARMSTRONG NATASHA Attending Clinician Unavailable [id number] Admitting Clinician Unavailable RONNIE AYALA Admitting Clinician Unavailable MINE MOSQUEDA Admitting Clinician Unavailable Mine Mosqueda DO Admitting Clinician ZACHARY BRUNO Admitting Clinician Unavailable Zachary Bruno Admitting Clinician Monse Velazquez Admitting Clinician [phone] MONSE VELAZQUEZ Admitting Clinician Unavailable CHILANGO ARMSTRONG NATASHA Admitting Clinician Unavailable Payers Payer Name Policy Type Policy Effective Date Expiration Date Sour ce Number MEDICARE PART A [id number] 2011 AND B 00:00:00 MEDICARE PART A [id number] 2010 \\T\\ B 00:00:00 BCBS TRADITIONAL [id number] 2014 00:00:00 Blue Cross Blue 6 [id number] 2014 [facility] 00:00:00 - [facility] [id number] BCTX BCTI [id number] MEDICARE NOVITAS [id number] 2011 [facility] 00:00:00 - [facility] MEDICARE NOVITAS [id number] 2011 [facility] 00:00:00 - [facility] MEDICARE NOVITAS [id number] 2011 [facility] 00:00:00 [facility] Problems Condition Condition Condition Status Onset Resolution Last Treating Co mments Source Name Details Category Date Date Treatment Clinician Date E46 E46 Disease Active Univers Unspecifie Unspecifie 5-16 it y of d severe d severe 00:00: [place] protein-ca protein-ca 00 Me dical ajay ajay Branch malnutriti malnutriti on on Elevated Elevated Disease Active Unive rs troponin I troponin I 5-14 it y of level level 00:00: [place] 00 Medical Branch Elevated Elevated Disease Active [...] 5-14 it y of on on 00:00: [place] [facility] Branch Syncope Syncope Disease Active Univers 5-14 ity of 00:00: [place] [id number] Medical Branch Anemia Anemia Disease Active Univers associated associated 5-14 it y of with with 00:00: [place] nutritiona nutritiona 00 Me dical l Branch deficiency deficiency Dyslipidem Dyslipidem Disease Active U nivers ia ia 5-14 ity of 00:00: [place] [facility] Bifascicul Bifascicul Disease Active U nivers ar block ar block 5-14 ity of 00:00: [place] [facility] Atrial Atrial Disease Active Univers flutter flutter 5-14 ity of 00:00: [place] [facility] Branch Encephalop Encephalop Disease Active U nivers athy athy 5-14 ity of 00:00: [place] [facility] Hypoglycem Hypoglycem Disease Active U nivers ia ia 5-13 ity of 00:00: [place] [facility] LOW LOW Diagnosis Active 2022-01-02 Mem oria HEMOGLOBIN HEMOGLOBIN 01-02 12:51:00 l COUNT/ COUNT/ 00:00: [place] NEEDING NEEDING 00 DIALYZED DIALYZED Active 01/02/2022 Kimber Celeste PNA DUE TO PNA DUE Diagnosis Active 2022-08-31 Memoria COVID-19 TO 12-14 21:48:00 l VIRUS COVID-19 00:00: [place] VIRUS 00 Active 12/14/2021 Kimber Celeste DIFFICULTY DIFFICULT Diagnosis Active 2021-12-14 Memoria BREATHING Y 12-14 17:56:00 l BREATHING 00:00: [place] Active 00 12/14/2021 [facility] [place] ABNORNAL ABNORNAL Diagnosis Active 2021-12-16 Memoria LAB LAB Active 12-03 05:50:00 l 12/03/2021 08:00: Thomas moyer [facility] 00 [place] ANEMIA, ANEMIA, Diagnosis Active 2021-12-16 Memoria COVID-19 COVID-19 11-24 05:50:00 l Active 00:00: [place] 11/24/2021 [facility] [place] LOW LOW Diagnosis Active 2021-11-24 Mem oria HEMOGOBLIN HEMOGOBLIN 11-24 23:20:00 l Active 00:00: [place] 11/24/2021 00 [facility] Cellulitis Cellulitis Disease Active U nivers of right of right 12-29 ity of leg leg 00:00: [address] [id number] Other Problem Common obesity Spirit due to - [facility] excess [facility] [id number] Metabolic Problem Com mon syndrome Spirit - [facility] [id number] Body mass Problem Com mon index Spirit [BMI] - [facility] 30.0-30.9, [facility] [id number] Frailty Problem Commo n syndrome Spirit in - [facility] geriatric [facility] 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 - [facility] , single major St episode depressive 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 - [facility] Chronic Chronic Problem Common systolic systolic Spirit heart congestive - CHI failure heart [facility] [id number] 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 - [facility] [id number] GERD Problem Common without Spirit esophagiti - [facility] s [facility] [id number] Type 2 Problem Common diabetes Spirit mellitus - [facility]I with [facility] [id number] Mixed Problem Common hyperlipid Spirit emia - [facility] [id number] Noncomplia Problem Co mmon nce of Spirit patient - [facility] with [facility] Chronic +5th digit Problem Comm on atrial eff Spirit fibrillati 02/28/19*Ch - [facility] on ronic St (disorder[facility] [id number] 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 Chronic Chronic Problem Common obstructiv obstructiv Sp jerome e lung e - [facility] d COPD Center type [id number] Heart Problem Common failure, Spirit congestive - [facility]I , etiology [facility] [id number] Constipati Problem Com mon on, Spirit unspecifie - CHI d constipati 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 disease 5 chronic Medica l stage 5 kidney Center (disorder) disease or end stage renal disease Dependence Dependenc Problem Active 2022-01-04 Memoria on e on 23:08:30 l hemodialys hemodialys He rmann is due to is due to end stage end stage renal renal disease disease (finding) (finding) Active Problem 01/04/2022 Ap[place] COVID-19 COVID-19 Diagnosis Active 2022-08-31 Memoria Active 21:48:00 l Kimber Celeste ANEMIA, ANEMIA, Diagnosis Active 2021-12-16 Memoria UNSPECIFIE UNSPECIFIE 05:50:00 l D D Active [place] Celeste History of Past Illness Condition Condition Condition Status Onset Resolution Last Treating Co mments Source Name Details Category Date Date Treatment Clinician Date Anemia, Anemia, Problem 2021-12-06 2021-12-06 Memoria unspecifie unspecifie 12-04 21:45:40 21:45:40 l d d 06:34: [place] 12/04/2021 00 12/06/2021 [place] Allergies, Adverse Reactions, [...] 12-29 ity of adverse 00:00: [place] reaction 00 Medical s Branch CODEINE DRUG Active Med Hallucinates Uni vers INGREDI 12-29 ity of 00:00: [place] 00 Medical Branch codeine codeine Active Memoria l [place] gabapent gabapent Active Memori a in in l [place] gabapent gabapent Active Unknown Commo n in in Spirit [facility] codeine codeine Active Unknown Common [facility] Social History Social Habit Start Date Stop Date Quantity Comments Source History of tobacco Cigarette Smoker University of use [place] [facility] History SDOH University o f Alcohol Std Drinks [place] [facility] History SDOH University o f Alcohol Binge [place] [facility] al Branch History SDOH Social Unive rsity of Connections [facility] Med ical Together Branch History SDOH Social Unive rsity of Connections [facility] Medical Branch History SDOH Social Unive rsity of Connections [place] Medical Membership Branch History SDOH Social Unive rsity of Connections [place] [facility] Meetings Branch Alcohol intake 2022-10-31 2022-10-31 Ex-drinker University of 00:00:00 00:00:00 (finding) [place] [facility] History SDOH 2022-10-12 2022-10-12 1 University o f Alcohol Frequency 00:00:00 00:00:00 [facility] edical Branch History SDOH Social 2022-10-12 2022-10-12 5 Unive rsity of Connections Phone 00:00:00 00:00:00 [facility] edical Branch History SDOH Social 2022-10-12 2022-10-12 3 Unive rsity of Connections Living 00:00:00 00:00:00 [place] [facility] History SDOH 2022-10-12 2022-10-12 0 University o f Physical Activity 00:00:00 00:00:00 [place] M edical DPW Branch History SDOH 2022-10-12 2022-10-12 0 University o f Physical Activity 00:00:00 00:00:00 [place] M edical MPS Branch History SDOH 2022-10-12 2022-10-12 5 University o f Financial 00:00:00 00:00:00 [place] [facility] History SDOH Food 2022-10-12 2022-10-12 1 Univers ity of Worry 00:00:00 00:00:00 [place] [facility] History SDOH Food 2022-10-12 2022-10-12 1 Univers ity of Scarcity 00:00:00 00:00:00 [place] [facility] History SDOH 2022-10-12 2022-10-12 2 University o f Transport Med 00:00:00 00:00:00 [place] Medic al Branch History SDOH 2022-10-12 2022-10-12 2 University o f Transport Non-Med 00:00:00 00:00:00 [place] M edical Branch History SDOH 2022-10-12 2022-10-12 2 University o f Housing Unable to 00:00:00 00:00:00 [place] M edical Pay Branch History SDWV 2022-10-12 2022-10-12 1 University o f Housing Places 00:00:00 00:00:00 [place] Medi yahaira Lived Branch History SDWV 2022-10-12 2022-10-12 2 University o f Housing Homeless 00:00:00 00:00:00 [place] Me dical Last Year Branch Tobacco use and 2022-10-11 2022-10-11 Smokeless Universit y of exposure 00:00:00 00:00:00 tobacco non-user [place] Me dical Branch Tobacco Comment 2022-10-11 2022-10-11 pt has not Universit y of 00:00:00 00:00:00 smoked sice age [place] Med ical 19 Branch Exposure to 2022-09-30 2022-10-10 Not sure University of SARS-CoV-2 (event) 00:00:00 13:56:00 [facility] Sex Ass[birth year] Universit y of 00:00:00 00:00:00 [facility] Smoking Status Start Date Stop Date Source Social History 2021-12-04 02:37:37 2021-12-04 02:37:37 [facility] Medications Ordered Filled Start Stop Current Ordering Indication Dosage Frequency Signature Comments Components Source Medication Medication Date Date Medication? Clinician (SIG) Name Name aspirin 81 Yes [id number] 81mg Take 1 Univers mg EC 5-19 tablet by ity of tablet 00:00: mouth in [place] 00 the Medical morning. Branch aspirin 81 Yes [id number] 81mg Take 1 Univers mg EC 5-19 tablet by ity of tablet 00:00: mouth in [place] 00 the Medical morning. Branch aspirin 81 0 Yes [id number] 81mg Take 1 Univers mg EC 5-19 tablet by ity of tablet 00:00: mouth in [place] 00 the Medical morning. Branch citalopram Yes 20mg Take 1 Unive rs 20 mg 5-18 tablet by ity of tablet 14:40: mouth in [place] [address] the Medical morning. Branch atorvastati Yes 40mg Take 40 mg Univers n (LIPITOR) 5-18 by mouth ity of 40 mg 14:40: at [place] [address] bedtime. Medical Branch MULTIVITAMI Yes 1{tbl} Take 1 Tab Univers NS WITH 5-18 by mouth ity of EXTRA C 14:40: daily. [place] [address] Medical Branch citalopram Yes 20mg Take 1 Unive rs 20 mg 5-18 tablet by ity of tablet 14:40: mouth in [place] [address] the Medical morning. Branch atorvastati Yes 40mg Take 40 mg Univers n (LIPITOR) 5-18 by mouth ity of 40 mg 14:40: at [place] [address] bedtime. Medical Branch MULTIVITAMI Yes 1{tbl} Take 1 Tab Univers NS WITH 5-18 by mouth ity of EXTRA C 14:40: daily. [place] [address] Medical Branch citalopram Yes 20mg Take 1 Unive rs 20 mg 5-18 tablet by ity of tablet 14:40: mouth in [place] 23 the Medical morning. Branch atorvastati Yes 40mg Take 40 mg Univers n (LIPITOR) 5-18 by mouth ity of 40 mg 14:40: at [place] tablet 23 bedtime. Medical Branch MULTIVITAMI Yes [...] ity of tablet 12:58: 00:00 mouth in [place] 33 :00 the Medical morning. Branch spironolact 2022- No 25mg Take 25 mg Univers one 5-18 05-18 by mouth ity of (SPIRONOLAC 12:58: 00:00 daily. [place] as TONE) 25 mg 33 :00 Medical tablet Branch INSULIN 2022- No 52U inject 52 Univ ers GLARGINE,HU 5-18 05-18 Units ity of M.REC.ANLOG 12:58: 00:00 under the [place] (LANTUS 33 :00 skin every Medica l SOLOSTAR morning. Branch SD) carvediloL Yes [id number] 6.25mg Take 1 Univers 6.25 mg 5-18 tablet by ity of tablet 00:00: mouth in [place] 00 the Medical morning Branch and 1 tablet in the evening. Take with meals. pantoprazol Yes [id number] 40mg Take 1 Univers e 40 mg EC 5-18 tablet by ity of tablet 00:00: mouth in [place] 00 the Medical morning. Branch carvediloL Yes [id number] 6.25mg Take 1 Univers 6.25 mg 5-18 tablet by ity of tablet 00:00: mouth in [place] the morning Branch and 1 tablet in the evening. Take with meals. pantoprazol Yes [id number] 40mg Take 1 Univers e 40 mg EC 5-18 tablet by ity of tablet 00:00: mouth in [place] the morning. Branch carvediloL Yes [id number] 6.25mg Take 1 Univers 6.25 mg 5-18 tablet by ity of tablet 00:00: mouth in [place] the morning Branch and 1 tablet in the evening. Take with meals. pantoprazol Yes [id number] 40mg Take 1 Univers e 40 mg EC 5-18 tablet by ity of tablet 00:00: mouth in [place] the morning. Branch amoxicillin 2022- Yes [id number] 500mg Take 1 Univers -pot 5-18 05-26 tablet by ity of clavulanate 00:00: 04:59 [place] 500 mg 00 :00 every 24 Medical (AUGMENTIN) (twenty-fo Br anch 500-125 mg ur) hours tablet for 7 days. amoxicillin 2022- Yes [id number] 500mg Take 1 Univers -pot 5-18 05-26 tablet by ity of clavulanate 00:00: 04:59 [place] 500 mg 00 :00 every 24 Medical (AUGMENTIN) (twenty-fo Br anch 500-125 mg ur) hours tablet for 7 days. FENTanyl PF 0 Yes 25ug 25 mcg, Uni vers (SUBLIMAZE 5-17 Slow IV ity of (PF)) 11:05: Push, [place] injection 22 Q6HPRN, Medical 25 mcg Starting Branch on Wed10/14/22 at 0605, Until Discontinu ed, Routine, Pain (scale 4-6) FENTanyl PF 2022- No 12.5ug 12.5 mcg, Univers (SUBLIMAZE 5-17 05-17 Slow IV ity o f (PF)) 08:07: 11:05 [place], [place] injection 00 :38 Q6HPRN, Medical 12.5 mcg [...] [place] 00 First dose Medical on Wed Branch 10/13/22 at 1515, Until Discontinu ed, Routine hydralAZINE Yes 10mg 10 mg, Univ ers (APRESOLINE 16 Slow IV ity o f ) injection [...] Medic al VIAL-MATE dose, On Branch IV [facility] piggyback 10/12/22 at 1600, Administer over 90 Minutes, 250 mL
Reas on for Anti-Infec tive: Documented Infection< br>Documen swathi Infection Site: Blood<br&g t;Duration of Therapy: 7 days methocarbam 2022-0 Yes 750mg 750 mg, Un arnie oL 5-15 Oral, ity of (ROBAXIN) 13:06: TIDPRN, [place] tablet 750 58 Starting Medic al mg on [facility] 10/12/22 at 0806, Until Discontinu ed, Routine, Muscle Spasms atorvastati 0 Yes 40mg 40 mg, Univ ers n (LIPITOR) 5-15 Oral, QHS, it y of tablet 40 02:00: First dose [place] mg 00 on [facility] 10/11/22 at Branch 2100, Until Discontinu ed, Routine docusate 0 Yes 100mg 100 mg, Unive rs (COLACE) 5-15 Oral, BID, ity o f capsule 100 01:30: First dose [place] mg 00 on [facility] 10/11/22 at Branch 2030, Until Discontinu ed, Routine aspirin EC 0 Yes 81mg 81 mg, Unive rs tablet 81 5-14 Oral, ity of mg 14:00: DAILY, [place] 00 First dose Medical on [facility] 10/11/22 at 0900, Until Discontinu ed, Routine pantoprazol 0 Yes 40mg 40 mg, Univ ers e 5-14 Oral, ity of (PROTONIX) 14:00: DAILY, [place] EC tablet 00 First dose Medi yahaira 40 mg on [facility] 10/11/22 at 0900, Until Discontinu ed, Routine citalopram 0 Yes 20mg 20 mg, Unive rs (CELEXA) 5-14 Oral, ity of tablet 20 14:00: DAILY, [place] mg 00 First dose Medical on [facility] 10/11/22 at 0900, Until Discontinu [...] 81mg Take 81 mg Uni vers (ASPIR-81 10-11-13 by mouth ity o f ORAL) 07:29: 00:00 daily. [place] 15 :00 Medical Branch hydralAZINE 2022- No 100mg Take 100 Univers (APRESOLINE 10-11 05-13 mg by ity of ) 100 [...] mL Infusion, Branch CONTINUOUS , Starting on Wed10/10/22 at 2315, Until 5/14/23 at 1206, MELO heparin 0 Yes 5000U 5,000 Univers (porcine) 5-14 Units, [...] No 1000mL at 75 Univ ers NaCl 10-11 05-14 mL/hr, ity of (1/2NS) IV 01:30: [...] swallow or has mental status changes. piperacilli 0 2022- No 3.375g 3.375 g, Univers n-tazobacta 10-10-13 IV ity of m (ZOSYN) 21:30: 21:45 [...] on 10/10/22 at 1530, Until 10/10/22 at 2026, MELO glucagon 2022- No 1mg 1 mg, Univers (GLUCAGEN 10-10 Intravenou ity of DIAGNOSTIC 20:00: 19:45 s, ONCE, 1 [place] KIT) 00 :00 dose, On Medical injection 1 Sat Branch mg 10/10/22 at 1500, MELO Lantus Lantus No Lantus SoloStar SoloStar 8-04 [...] l 14:00: Retacrit) [place] 00 epoetin shannon-epbx 36606 unit/1 ml VL. For dialysis use only. WASTE: F/P - Red; E Red MEDICATION WASTE Product Size: 38587 unit Product Wasted: ___ unit aspirin No Notes: Do Memor ia 7-20 not crush l 14:00: or chew. [place] 00 (Same As: Ecotrin) Procardia No Notes: Memori a XL 30 mg 7-20 (Same as: l oral 14:00: Adalat CC, [place] tablet, 00 Procardia extended XL) Give release on empty stomach. Take 1 hour before or 2 hours after meal; "Avoid grapefruit and grapefruit juice". Do not crush Epogen No Notes: Memoria (ESRD) 7-20 Same as: l 14:00: Retacrit) [place] 00 epoetin shannon-epbx 41028 unit/1 ml VL. For dialysis use only. WASTE: F/P - Red; E Red MEDICATION WASTE Product Size: 18093 unit Product Wasted: ___ unit aspirin No Notes: Do Memor ia 7-20 not crush l 14:00: or chew. [place] 00 (Same As: Ecotrin) Procardia No Notes: Memori a XL 30 mg 7-20 (Same as: l oral 14:00: Adalat CC, [place] tablet, 00 Procardia extended XL) Give release on empty stomach. Take 1 hour before or 2 hours after meal; "Avoid grapefruit and grapefruit juice". Do not crush Epogen No Notes: Memoria (ESRD) 7-20 Same as: l 14:00: Retacrit) [place] 00 epoetin shannon-epbx 05267 unit/1 ml VL. For dialysis use only. WASTE: F/P - Red; E Red MEDICATION WASTE Product Size: 93068 unit Product Wasted: ___ unit aspirin No Notes: Do Memor ia 7-20 not crush l 14:00: or chew. [place] 00 (Same As: Ecotrin) Procardia No Notes: Memori a XL 30 mg 7-20 (Same as: l oral 14:00: Adalat CC, [place] tablet, 00 Procardia extended XL) Give release on empty stomach. Take 1 hour before or 2 hours after meal; "Avoid grapefruit and grapefruit juice". Do not crush Epogen No Notes: Memoria (ESRD) 7-20 Same as: l 14:00: Retacrit) [place] 00 epoetin shannon-epbx 20615 unit/1 ml VL. For dialysis use only. WASTE: F/P - Red; E Red MEDICATION WASTE Product Size: 14981 unit Product Wasted: ___ unit Lipitor No Notes: Memoria 7-20 (Same as: l 02:00: Lipitor) Lipitor No Notes: Memoria 7-20 (Same as: l 02:00: Lipitor) Lipitor No Notes: Memoria 7-20 (Same as: l 02:00: Lipitor) Lipitor No Notes: Memoria 7-20 (Same as: l 02:00: Lipitor) cefdinir No Notes: Memoria 300 mg oral 7-19 (Same As: l capsule 22:00: Omnicef) [place] cefdinir No Notes: Memoria 300 mg oral 7-19 (Same As: l capsule 22:00: Omnicef) [place] n cefdinir No Notes: Memoria 300 mg oral 7-19 (Same As: l capsule 22:00: Omnicef) Thomas n cefdinir No Notes: Memoria 300 mg oral 7-19 (Same As: l capsule 22:00: Omnicef) [place] dexamethaso Yes 6 mg = 1 Me moria ne 6 mg 7-19 tab, PO, l oral tablet 21:19: Daily, X 3 day, # 3 tab, 0 Refill(s), Pharmacy: [id number], 177.8, cm, 12/14/21 22:03:00 CDT, Height, 95.2, kg, 12/14/21 22:03:00 CDT, Weight dexamethaso Yes 6 mg = 1 Me moria ne 6 mg 7-19 tab, PO, l oral tablet 21:19: Daily, X 3 [place] 00 day, # 3 tab, 0 Refill(s), Pharmacy: [id number], 177.8, cm, 12/14/21 22:03:00 CDT, Height, 95.2, kg, 12/14/21 22:03:00 CDT, Weight dexamethaso 2021-0 Yes 6 mg = 1 Me moria ne 6 mg 7-19 tab, PO, l oral tablet 21:19: Daily, X 3 [place] day, # 3 tab, 0 Refill(s), Pharmacy: [id number], 177.8, cm, 12/14/21 22:03:00 CDT, Height, 95.2, kg, 12/14/21 22:03:00 CDT, Weight dexamethaso 2-0 Yes 6 mg = 1 Me moria ne 6 mg 7-19 tab, PO, l oral tablet 21:19: Daily, X 3 [place] day, # 3 tab, 0 Refill(s), Pharmacy: [facility] #[id number], 177.8, cm, 12/14/21 22:03:00 CDT, Height, 95.2, kg, 12/14/21 22:03:00 CDT, Weight guaiFENesin 2-0 No 600 mg = 1 [...] extended 00 tab, 0 release Refill(s) pregabalin 2022-0 Yes 50 mg = 1 Me moria 50 mg oral 7-19 cap, PO, l capsule 20:30: BID, # 60 Lauryn nn 00 cap, 1 Refill(s) pregabalin 2022-0 Yes 50 mg = 1 Me moria [...] 7-19 tab, PO, l tablet 20:29: Bedtime, [place] 00 PRN for insomnia, # 14 tab, 0 Refill(s) melatonin 3 Yes 3 mg = 1 Me moria mg oral 7-19 tab, PO, l tablet 20:29: Bedtime, [place] 00 PRN for insomnia, # 14 tab, 0 Refill(s) melatonin 3 Yes 3 mg = 1 Me moria mg oral 7-19 tab, PO, l tablet 20:29: Bedtime, [place] 00 PRN for insomnia, # 14 tab, 0 Refill(s) Colace 100 2021-0 Yes 100 mg = 1 M emoria mg oral 7-19 cap, PO, l capsule 20:28: BID, PRN [place] n 00 Constipati on, # 20 cap, 0 Refill(s) Colace 100 2021-0 Yes 100 mg = 1 M emoria mg oral 7-19 cap, PO, l capsule 20:28: BID, PRN [place] n 00 Constipati on, # 20 cap, 0 Refill(s) Colace 100 2021-0 Yes 100 mg = 1 M emoria mg oral 7-19 cap, PO, l capsule 20:28: BID, PRN [place] n 00 Constipati on, # 20 cap, 0 Refill(s) Colace 100 2021-0 Yes 100 mg = 1 M emoria mg oral 7-19 cap, PO, l capsule 20:28: BID, PRN [place] n 00 Constipati on, # 20 cap, 0 Refill(s) carvedilol Yes 12.5 mg = Me moria 12.5 mg 7-19 1 tab, PO, l oral tablet 20:27: Q12H, # 60 [place] 00 tab, 0 Refill(s) bisacodyl 5 Yes [...] l oral tablet 20:27: Q12H, # 60 [place] 00 tab, 0 Refill(s) bisacodyl 5 0 Yes 10 mg = 2 M emoria mg oral 7-19 tab, PO, l enteric 20:27: Daily, PRN Herm silas coated 00 Constipati tablet on, # 20 tab, 0 Refill(s) bisacodyl 5 0 Yes 10 mg = 2 M emoria mg oral 7-19 tab, PO, l enteric 20:27: Daily, PRN Herm silas coated 00 Constipati tablet on, # 20 tab, 0 Refill(s) carvedilol Yes 12.5 mg = Me moria 12.5 mg 7-19 1 tab, PO, l oral tablet 20:27: Q12H, # 60 [place] 00 tab, 0 Refill(s) aspirin 81 2021-0 Yes 81 mg [...] As: Zithromax) sevelamer No Notes: Memori a - Same as: l 13:00: Renvela [place] sevelamer No Notes: Memori a - Same as: l 13:00: Renvela [place] sevelamer No Notes: Memori a - Same as: l 13:00: Renvela [place] sevelamer No Notes: Memori a 12-16 Same as: l 13:00: Renvela [place] albumin Yes Notes: Lot Heath bobo human 25% 12-16 #: l intravenous 02:33: [place] solution 00 ___ Mfg: (Same as: Plasbumin- 25) "blood product derivative " WASTE: F/P - Red; E -Red MEDICATION WASTE Product Size: 25 gm Product Wasted: ___ gm albumin Yes Notes: Lot Heath broussard human 25% 12-16 #: l intravenous 02:33: [place] solution 00 ___ Mfg: (Same as: Plasbumin- 25) "blood product derivative " WASTE: F/P - Red; E -Red MEDICATION WASTE Product Size: 25 gm Product Wasted: ___ gm albumin Yes Notes: Lot Heath broussard human 25% 12-16 #: l intravenous 02:33: [place] solution ___ Mfg: (Same as: Plasbumin- 25) "blood product derivative " WASTE: F/P - Red; E -Red MEDICATION WASTE Product Size: 25 gm Product Wasted: ___ gm albumin Yes Notes: Lot Heath broussard human 25% 12-16 #: l intravenous 02:33: [place] solution ___ Mfg: (Same as: Plasbumin- 25) [...] pratropium 7-18 Same as: l 13:00: Combivent [place] Respimat WASTE: Aerosol - Return to Pharmacy albuterol-i No Notes: Heath bobo pratropium 7-18 Same as: l 13:00: Combivent [place] Respimat WASTE: Aerosol - Return to Pharmacy albuterol-i No Notes: Heath bobo pratropium 7-18 Same as: l 13:00: Combivent [place] Respimat WASTE: Aerosol - Return to Pharmacy albuterol-i No Notes: Heath bobo pratropium 7-18 Same as: l 13:00: Combivent [place] Respimat WASTE: Aerosol - Return to Pharmacy heparin No 5,000 [facility] 7-18 unit, l 05:00: Route: [place] 00 SUB-Q, Q8H, Dosing Weight 95.455, kg, [...] 5,000 [facility] 7-18 unit, l 05:00: Route: [place] 00 SUB-Q, Q8H, Dosing Weight 95.455, kg, Start date: 12/15/21 0:00:00 CDT, Stop date: 01/13/22 16:00:00 CDT heparin No Notes: [facility] 7-18 porcine l 02:00: heparin [place] heparin No Notes: [facility] 7-18 porcine l 02:00: heparin [place] 00 heparin No Notes: [facility] 7-18 porcine l 02:00: heparin [place] 00 heparin No Notes: [facility] 7-18 porcine l 02:00: heparin [place] 00 albuterol-i No Notes: Heath bobo pratropium [...] Duoneb) Herm silas inhalation 00 solution vancomycin 0 No 2001 mg: Me moria + Sodium 7-18 infuse l Chloride 00:37: over 2.5 Lauryn nn 0.9% IV 250 00 hours For mL adult patients only: Round to nearest 250 mg per Medical Staff approval MEDICATION WASTE Product Size: 1000 mg Product Wasted: ___ mg vancomycin 0 No 2000 mg: Me moria + Sodium [...] Rate: 999 l Water IV 23:57: ml/hr, [place] 00 Infuse over: 0.1 hr, Route: IV, Total Volume: 125, Start date: 12/14/21 18:57:00 CDT, Duration: 30 day, Stop date: 01/13/22 18:56:00 CDT, PRN Blood Glucose Results, 0 Dextrose 0 No 125 mL, [facility] a 10% in 12-14 Rate: 999 l Water IV 23:57: ml/hr, [place] 00 Infuse over: 0.1 hr, Route: IV, Total Volume: 125, Start date: 12/14/21 18:57:00 CDT, Duration: 30 day, Stop date: 01/13/22 18:56:00 CDT, PRN Blood Glucose Results, 0 Dextrose 2021-0 No 125 mL, [facility] a 10% in 12-14 Rate: 999 l Water IV 23:57: ml/hr, [place] 00 Infuse over: 0.1 hr, Route: IV, Total Volume: 125, Start date: 12/14/21 18:57:00 CDT, Duration: 30 day, Stop date: 01/13/22 18:56:00 CDT, PRN Blood Glucose Results, 0 Dextrose 2022-0 No 125 mL, [facility] a 10% in 12-14 Rate: 999 l Water IV 23:57: ml/hr, [place] 00 Infuse over: 0.1 hr, Route: IV, [...] Blood Glucose Results, 0 Dextrose 2-0 No 250 mL, [facility] a 10% in 12-14 Rate: 999 l Water IV 23:53: ml/hr, [place] 00 Infuse over: 0.3 hr, Route: IV, Total Volume: 250, Start date: 12/14/21 18:53:00 CDT, Duration: 30 day, Stop date: 01/13/22 18:52:00 CDT, PRN Blood Glucose Results, 0 Dextrose 2-0 No 250 mL, [facility] a 10% in 12-14 Rate: 999 l Water IV 23:53: ml/hr, [place] 00 Infuse over: 0.3 hr, Route: IV, [...] CDT, PRN Blood Glucose Results, 0 Vancomycin 2022-0 No Notes: [facility] 12-14 Vancomycin l Dosing 23:36: Pharmacy [place] Consult 47 Dosing Protocol PHARMAC Y USE ONLY Note: This is not a medication order. This is a consultati on order. Vancomycin No Notes: [facility] 12-14 Vancomycin l Dosing 23:36: Pharmacy [place] Consult 47 Dosing Protocol PHARMAC Y USE ONLY Note: This is not a medication order. This is a consultati on order. Vancomycin No Notes: [facility] 12-14 Vancomycin l Dosing 23:36: Pharmacy [employer] Consult 47 Dosing Protocol PHARMAC Y USE ONLY Note: This is not a medication order. This is a consultati on order. Vancomycin No Notes: [facility] 12-14 Vancomycin l Dosing 23:36: Pharmacy [employer] Consult 47 Dosing Protocol PHARMAC Y USE [...] 7-17 not exceed l 23:30: 4 gm/day. [place] 00 (Same as: Tylenol) albuterol-i No Notes: Heath bobo pratropium 7-17 (Same as: l 2.5-0.5 mg 23:30: Duoneb) Herm silas inhalation solution Chlorasepti No Notes: Heath bobo c 1.4% 7-17 Chlorasept l spray 23:30: ic [place] (Same as: Chlorasept ic, Sore Throat [place]) WASTE: F/P - Black; E - Municipal [...] 7-17 (Same as: l tablet 23:30: Pepcid) [place] 5/325 No Notes: Heath bobo oral tablet 7-17 (Same as: l 23:30: [place] 325/5) Do not exceed 4gm/day of acetaminop [...] 1.4% 7-17 Chlorasept l spray 23:30: ic [place] (Same as: Chlorasept ic, Sore Throat [place]) WASTE: F/P - Black; E - Municipal Trash Bin Colace 100 No Notes: [facility] mg oral 7-17 (Same as: l capsule 23:30: Colace) (Do Not Crush) hydrALAZINE No Notes: Heath bobo 7-17 (Same as: l 23:30: Apresoline ) Push over 5 minutes melatonin 3 No Notes: Heath bobo mg oral 7-17 (Same as: l tablet 23:30: Melatonin) Lauryn nn simethicone No Notes: Heath bobo 7-17 (Same as: l 23:30: Mylicon) ondansetron No Notes: Heath bobo 7-17 (Same as: l 23:30: Zofran) MEDICATION WASTE Product Size: 4 mg Product Wasted: ___ mg dextrometho No Notes: Heath bobo rpnito-richaraiF 7-17 (dextromet l ENesin 10 23:30: horphan-gu [...] 1.4% 7-17 Chlorasept l spray 23:30: ic [place] (Same as: Chlorasept ic, Sore Throat [place]) WASTE: F/P - Black; E - Municipal Trash Bin Colace 100 No Notes: [facility] mg oral 7-17 (Same as: l capsule 23:30: Colace) (Do Not Crush) hydrALAZINE No Notes: Heath bobo 7-17 (Same as: l 23:30: Apresoline ) Push over 5 minutes melatonin 3 No Notes: Haeth bobo mg oral 7-17 (Same as: l tablet 23:30: Melatonin) Lauryn nn 00 Pepcid 20 No Notes: [facility] a mg oral 7-17 (Same as: l tablet 23:30: Pepcid) [place] 00 [place] 5/325 No Notes: Heath bobo oral tablet 7-17 (Same as: l 23:30: [place] 325/5) Do not exceed 4gm/day of acetaminop hen. morphine No 1 mg, 0.5 Heath bobo Sulfate 7-17 mL, Route: l 23:30: IVP, Drug form: SOLN, Q4H, Dosing Weight 95.455, kg, PRN Pain Score 7-10, Start date: 12/14/21 18:30:00 CDT, Duration: 30 day, Stop date: 01/13/22 18:29:00 CDT, 0 [place] 5/325 No Notes: Heath bobo oral tablet 7-17 (Same as: l 23:30: [place] 325/5) Do not exceed 4gm/day of acetaminop [...] (Same as: l 2.5-0.5 mg 23:30: Duoneb) solution Chlorasepti No Notes: Heath bobo c 1.4% 7-17 Chlorasept l spray 23:30: ic [place] (Same as: Chlorasept ic, Sore Throat [place]) WASTE: F/P - Black; E - Secure-[employer] Trash Bin Colace 100 No Notes: [facility] mg oral 7-17 (Same as: l capsule 23:30: Colace) (Do Not Crush) hydrALAZINE No Notes: Heath bobo 7-17 (Same as: l 23:30: Apresoline ) Push over 5 minutes melatonin 3 No Notes: Heath bobo mg oral 7-17 (Same as: l tablet 23:30: Melatonin) Pepcid 20 No Notes: [facility] a mg oral 7-17 (Same as: l tablet 23:30: Pepcid) [place] 5/325 No Notes: Heath bobo oral tablet 7-17 (Same as: l 23:30: [place] 00 325/5) Do not exceed 4gm/day of acetaminop hen. morphine No 1 mg, 0.5 Heath bobo Sulfate 7-17 mL, Route: l 23:30: IVP, Drug form: SOLN, Q4H, Dosing Weight 95.455, kg, PRN Pain Score 7-10, Start date: 12/14/21 18:30:00 CDT, Duration: 30 day, Stop date: 01/13/22 18:29:00 CDT, 0 Dextrose 2022-0 No 25 mL, [facility] 50% Syringe - Route: l (D50W) 23:29: IVP, [place] 00 Dosing Weight 95.455, kg, PRN, PRN Blood Glucose Results, Start date: 12/14/21 18:29:00 CDT, Duration: 30 day, Stop date: 01/13/22 18:28:00 CDT glucagon 2022-0 No 1 mg, [facility] 7- Route: IM, l 23:29: Drug form: [place] PDR/INJ, PRN, Dosing Weight 95.455, kg, PRN Blood Glucose Results, Start date: 12/14/21 18:29:00 CDT, Duration: 30 day, Stop date: 01/13/22 18:28:00 CDT, 0 insulin 2022-0 No Notes: [facility] lispro - (Same as: l 23:29: Humalog) Roll in palms of hands gently; Do not shake vigorously . WASTE: F/P - Black; E - Municipal Trash Bin Stable for 28 days at room temperatur e. Expires in days from ____Date Dextrose 2022-0 No 25 mL, [facility] 50% Syringe 12-14 Route: l (D50W) 23:29: IVP, Dosing Weight 95.455, kg, PRN, PRN Blood Glucose Results, Start date: 12/14/21 18:29:00 CDT, Duration: 30 day, Stop date: 01/13/22 18:28:00 CDT glucagon 2022-0 No 1 mg, [facility] 7-17 Route: IM, l 23:29: Drug form: [place] 00 PDR/INJ, PRN, Dosing Weight 95.455, kg, PRN Blood Glucose Results, Start date: 12/14/21 18:29:00 CDT, Duration: 30 day, Stop date: 01/13/22 18:28:00 CDT, 0 insulin 2022-0 No Notes: [facility] lispro 7-17 (Same as: l 23:29: Humalog) [place] 00 Roll in palms of hands gently; Do not shake vigorously . WASTE: F/P - Black; E - Municipal Trash Bin Stable for 28 days at room temperatur e. Expires in days from ____Date Dextrose 2022-0 No 25 mL, [facility] 50% Syringe 7-17 Route: l (D50W) 23:29: IVP, [place] 00 Dosing Weight 95.455, kg, PRN, PRN Blood Glucose Results, Start date: 12/14/21 18:29:00 CDT, Duration: 30 day, Stop date: 01/13/22 18:28:00 CDT glucagon 2-0 No 1 mg, [facility] 7-17 Route: IM, l 23:29: Drug form: [place] 00 PDR/INJ, PRN, Dosing Weight 95.455, kg, PRN Blood Glucose Results, Start date: 12/14/21 18:29:00 CDT, Duration: 30 day, Stop date: 01/13/22 18:28:00 CDT, 0 insulin 2021-0 No Notes: [facility] lispro 7-17 (Same as: l 23:29: Humalog) [place] 00 Roll in palms of hands gently; Do not shake vigorously . WASTE: F/P - Black; E - Municipal Trash Bin Stable for 28 days at room temperatur e. Expires in days from ____Date Dextrose 2-0 No 25 mL, [facility] 50% Syringe 7-17 Route: l (D50W) 23:29: IVP, [place] 00 Dosing Weight 95.455, kg, PRN, PRN Blood Glucose Results, Start date: 12/14/21 18:29:00 CDT, Duration: 30 day, Stop date: 01/13/22 18:28:00 CDT glucagon 2022-0 No 1 mg, [facility] 7-17 Route: IM, [...] [facility] sulfate 7-17 (Zinc l 23:28: sulfate [place] 00 capsule) - 220 mg Zinc sulfate = 50 mg elemental zinc Same as Zinc Sulfate ascorbic No Notes: [facility] acid 7-17 (Same as: l 23:28: Vitamin C) No Notes: [facility] Perles 7-17 (Same As: l 23:28: [place] 00 Perles) "Do Not Crush" zinc No Notes: [facility] sulfate 7-17 (Zinc l 23:28: sulfate [place] 00 capsule) - 220 mg Zinc sulfate = 50 mg elemental zinc Same as Zinc Sulfate ascorbic No Notes: [facility] acid 7-17 (Same as: l 23:28: Vitamin C) No Notes: [facility] Perles 7-17 (Same As: l 23:28: Tessalon [place] 00 Perles) "Do Not Crush" zinc No Notes: [facility] sulfate 7-17 (Zinc l 23:28: sulfate [place] 00 capsule) - 220 mg Zinc sulfate = 50 mg elemental zinc Same as Zinc Sulfate ascorbic No Notes: [facility] acid 7-17 (Same as: l 23:28: Vitamin C) No Notes: [facility] Perles 7-17 (Same As: l 23:28: Tessalon [place] Perles) "Do Not Crush" zinc No Notes: [...] 00 IV) mL aspirin No Notes: [facility] 12-14 Take with l 22:40: food. [place] 00 Rocephin + No Notes: [facility] Sodium 12-14 (Same As: l Chloride 22:40: Rocephin). Her clayton 0.9% IV 50 00 Use with mL 100 mL NS and infuse over 30 min MEDICATION WASTE Product Size: 1000 mg Product Wasted: ___ mg azithromyci No Notes: Heath bobo n + Sodium 12-14 (Same As: l Chloride 22:40: Zithromax Herm silas 0.9% IV 250 00 IV) mL Dextrose No 250 mL, [facility] a 10% in 12-14 Rate: 999 l Water IV 21:08: ml/hr, [place] 00 Infuse over: 0.3 hr, Route: IV, Total Volume: 250, Start date: 12/14/21 16:08:00 CDT, Stop date: 12/14/21 16:08:00 CDT, 0 Dextrose 2021-0 No 250 mL, [facility] a 10% in 12-14 Rate: 999 l Water IV 21:08: ml/hr, [place] 00 Infuse over: 0.3 hr, Route: IV, Total Volume: 250, Start date: 12/14/21 16:08:00 CDT, Stop date: 12/14/21 16:08:00 CDT, 0 Dextrose 2021-0 No 250 mL, [facility] a 10% in 12-14 Rate: 999 l Water IV 21:08: ml/hr, [place] 00 Infuse over: 0.3 hr, Route: IV, Total Volume: 250, Start date: 12/14/21 16:08:00 CDT, Stop date: 12/14/21 16:08:00 CDT, 0 Dextrose 2021-0 No 250 mL, [facility] a 10% in 12-14 Rate: 999 l Water IV 21:08: ml/hr, [place] Infuse over: 0.3 hr, Route: IV, Total Volume: 250, Start date: 12/14/21 16:08:00 CDT, Stop date: 12/14/21 16:08:00 CDT, 0 d50 syringe 2022-0 No 25 mL, Heath bobo 7-17 Route: l 20:41: IVP, [place] 00 Dosing Weight 95.455, kg, ONCE, STAT, Start date: 12/14/21 15:41:00 CDT, Stop date: 12/14/21 15:41:00 CDT, 25 ml = 12.5 gm d50 syringe 2022-0 No 25 mL, Heath bobo 7-17 Route: l 20:41: IVP, [place] 00 Dosing Weight 95.455, kg, ONCE, STAT, Start date: 12/14/21 15:41:00 CDT, Stop date: 12/14/21 15:41:00 CDT, 25 ml = 12.5 gm d50 syringe 2022-0 No 25 mL, Heath bobo 7-17 Route: l 20:41: IVP, [place] 00 Dosing Weight 95.455, kg, ONCE, STAT, Start date: 12/14/21 15:41:00 CDT, Stop date: 12/14/21 15:41:00 CDT, 25 ml = 12.5 gm d50 syringe 2022-0 No 25 mL, Heath bobo 7-17 Route: [...] Rate: To l 0.9% 01:29: prime line [place] (titrate) 00 and flush 250 mL remaining [...] Replace Every: 24 hr, 0 Plavix 75 2022-0 Yes 75 mg = 1 [facility] mg oral 6-28 tab, PO, l tablet 19:37: Daily, # [place] 00 30 tab, 0 Refill(s), other Plavix 75 2022-0 Yes 75 mg = 1 [facility] mg oral 6-28 tab, PO, l tablet 19:37: Daily, # [place] 00 30 tab, 0 Refill(s), other Plavix 75 2022-0 Yes 75 mg = 1 [facility] mg oral 6-28 tab, PO, l tablet 19:37: Daily, # [place] 00 30 tab, 0 Refill(s), other Plavix 75 2022-0 Yes 75 mg = 1 [facility] mg oral 6-28 tab, PO, l tablet 19:37: Daily, # [place] 00 30 tab, 0 Refill(s), other Protonix 2022-0 No Notes: For [facility] 6-28 IV push l 14:00: reconstitu [place] 00 te with 10 ml 0.9% sodium chloride and push over 2 minutes. (Same as: Protonix) atorvastati No Notes: Heath bobo n 6-28 (Same as: l 14:00: Lipitor) [place] citalopram No Notes: [facility] 6-28 (Same As: l 14:00: CeleXA) [place] 00 Protonix No Notes: For [facility] 6-28 IV push l 14:00: reconstitu [place] 00 te with 10 ml 0.9% sodium chloride and push over 2 minutes. (Same as: Protonix) atorvastati No Notes: Heath bobo n 6-28 (Same as: l 14:00: Lipitor) [place] 00 citalopram No Notes: [facility] 6-28 (Same As: l 14:00: CeleXA) [place] 00 Protonix No Notes: For [facility] 6-28 IV push l 14:00: reconstitu [place] 00 te with 10 ml 0.9% sodium chloride and push over 2 minutes. (Same as: Protonix) atorvastati No Notes: Heath bobo n 6-28 (Same as: l 14:00: Lipitor) [place] 00 citalopram No Notes: [facility] 6-28 (Same As: l 14:00: CeleXA) [place] 00 Protonix No Notes: For [facility] 6-28 IV push l 14:00: reconstitu [place] 00 te with 10 ml 0.9% sodium chloride and push over 2 minutes. (Same as: Protonix) atorvastati No Notes: Heath bobo n 6-28 (Same as: l 14:00: Lipitor) [place] 00 citalopram No Notes: [facility] 6-28 (Same As: l 14:00: CeleXA) [place] 00 dexamethaso No Notes: Heath bobo ne 6-28 Concentrat l 06:42: ion: [place] 00 4mg/ml dexamethaso No Notes: Heath bobo ne 6-28 Concentrat l 06:42: ion: [place] 00 4mg/ml dexamethaso 2022-0 No Notes: Heath bobo ne - Concentrat l 06:42: ion: [place] 00 4mg/ml dexamethaso 2021-0 No Notes: Heath bobo ne - Concentrat l 06:42: ion: [place] 00 4mg/ml D10W 2021-0 No 125 mL, [facility] (bolus) IV 6- Rate: 999 l 06:31: ml/hr, [place] 00 Infuse over: 0.1 hr, Route: IVPB, Total Volume: 125, Start date: 11/25/21 1:31:00 CDT, Duration: 30 day, Stop date: 12/25/21 1:30:00 CDT, PRN Blood Glucose Results, 0 2021-0 No 125 mL, [facility] (bolus) IV - Rate: 999 l 06:31: ml/hr, [place] 00 Infuse over: 0.1 hr, Route: IVPB, Total Volume: 125, Start date: 11/25/21 1:31:00 CDT, Duration: 30 day, Stop date: 12/25/21 1:30:00 CDT, PRN Blood Glucose Results, 0 2021-0 No 125 mL, [facility] (bolus) IV - Rate: 999 l 06:31: ml/hr, [place] 00 Infuse over: 0.1 hr, Route: IVPB, Total Volume: 125, Start date: 11/25/21 1:31:00 CDT, Duration: 30 day, Stop date: 12/25/21 1:30:00 CDT, PRN Blood Glucose Results, 0 2021-0 No 125 mL, [facility] (bolus) IV 6- Rate: 999 l 06:31: ml/hr, [place] 00 Infuse over: 0.1 hr, Route: IVPB, Total Volume: 125, Start date: 11/25/21 1:31:00 CDT, Duration: 30 day, Stop date: 12/25/21 1:30:00 CDT, PRN Blood Glucose Results, 0 D12021-0 No 250 mL, [facility] (bolus) IV 6- Rate: 999 l 06:23: ml/hr, [place] 00 Infuse over: 0.3 hr, Route: IVPB, Total Volume: 250, Start date: 11/25/21 1:23:00 CDT, Duration: 30 day, Stop date: 12/25/21 1:22:00 CDT, PRN Blood Glucose Results, 0 D10W 2021-0 No 250 mL, [facility] (bolus) IV 11-25 Rate: 999 l 06:23: ml/hr, [place] 00 Infuse over: 0.3 hr, Route: IVPB, Total Volume: 250, Start date: 11/25/21 1:23:00 CDT, Duration: 30 day, Stop date: 12/25/21 1:22:00 CDT, PRN Blood Glucose Results, 0 D1W 2021-0 No 250 mL, [facility] (bolus) IV 11-25 Rate: 999 l 06:23: ml/hr, [place] 00 Infuse over: 0.3 hr, Route: IVPB, Total Volume: 250, Start date: 11/25/21 1:23:00 CDT, Duration: 30 day, Stop date: 12/25/21 1:22:00 CDT, PRN Blood Glucose Results, 0 D1W 2021-0 No 250 mL, [facility] (bolus) IV 11-25 Rate: 999 l 06:23: ml/hr, Infuse over: 0.3 hr, Route: IVPB, Total Volume: 250, Start date: 11/25/21 1:23:00 CDT, Duration: 30 day, Stop date: 12/25/21 1:22:00 CDT, PRN Blood Glucose Results, 0 Dextrose 2021-0 No 25 mL, [facility] 50% Syringe 11-25 Route: l (D50W) 05:55: IVP, Dosing Weight 94.545, kg, PRN, PRN Blood Glucose Results, Start date: 11/25/21 0:55:00 CDT, Duration: 30 day, Stop date: 12/25/21 0:54:00 CDT glucagon 2021-0 No 1 mg, [facility] 11-25 Route: IM, l 05:55: Drug form: PDR/INJ, PRN, Dosing Weight 94.545, kg, PRN Blood Glucose Results, Start date: 11/25/21 0:55:00 CDT, Duration: 30 day, Stop date: 12/25/21 0:54:00 CDT, 0 insulin 202-0 No Notes: [facility] lispro 6-28 (Same as: [...] 11-25 Route: IM, l 05:55: Drug form: [place] 00 PDR/INJ, PRN, Dosing Weight 94.545, kg, PRN Blood Glucose Results, Start date: 11/25/21 0:55:00 CDT, Duration: 30 day, Stop date: 12/25/21 0:54:00 CDT, 0 insulin 2021-0 No Notes: [facility] lispro -28 (Same as: l 05:55: Humalog) [place] 00 Roll in palms of hands gently; Do not shake vigorously . WASTE: F/P - Black; E - Municipal Trash Bin Stable for 28 days at room temperatur e. Expires in days from ____Date Dextrose 2021-0 No 25 mL, [facility] 50% Syringe 11-25 Route: l (D50W) 05:55: IVP, [place] 00 Dosing Weight 94.545, kg, PRN, PRN Blood Glucose Results, Start date: 11/25/21 0:55:00 CDT, Duration: 30 day, Stop date: 12/25/21 0:54:00 CDT glucagon 2021-0 No 1 mg, [facility] 6-28 Route: IM, l 05:55: Drug form: [place] PDR/INJ, PRN, Dosing Weight 94.545, kg, PRN Blood Glucose Results, Start date: 11/25/21 0:55:00 CDT, Duration: 30 day, Stop date: 12/25/21 0:54:00 CDT, 0 insulin 2021-0 No Notes: [facility] lispro 11-25 (Same as: l 05:55: Humalog) Roll in palms of hands gently; Do not shake vigorously . WASTE: F/P - Black; E - Municipal Trash Bin Stable for 28 days at room temperatur e. Expires in days from ____Date Dextrose No 25 mL, [facility] 50% Syringe 11-25 Route: l (D50W) 05:55: IVP, Dosing Weight 94.545, kg, PRN, PRN Blood Glucose Results, Start date: 11/25/21 0:55:00 CDT, Duration: 30 day, Stop date: 12/25/21 0:54:00 CDT glucagon 2021- No 1 mg, [facility] 11-25 Route: IM, l 05:55: Drug form: PDR/INJ, PRN, Dosing Weight 94.545, kg, PRN Blood Glucose Results, Start date: 11/25/21 0:55:00 CDT, Duration: 30 day, Stop date: 12/25/21 0:54:00 CDT, 0 insulin 2021-0 No Notes: [facility] lispro 11-25 (Same as: [...] not exceed l 05:54: 4 gm/day. [place] (Same as: Tylenol) salon No Notes: [facility] Perles 6-28 (Same As: l 05:54: Tessalon [place] 00 Perles) "Do Not Crush" simethicone No Notes: Heath bobo 6-28 (Same as: l 05:54: Mylicon) [place] 00 senna 8.6 No Notes: [facility] a mg oral 6-28 (Same as: l tablet 05:54: Senokot) [place] 00 Colace 50 No Notes: [facility] a mg oral 6-28 (Same as: l capsule 05:54: Colace) [place] 00 Zofran No Notes: [facility] 6-28 (Same as: l 05:54: Zofran) [place] 00 MEDICATION WASTE Product Size: 4 mg Product Wasted: ___ mg Tylenol No Notes: Do [facility] 6-28 not exceed l 05:54: 4 gm/day. [place] 00 (Same as: Tylenol) No Notes: [facility] Perles 6-28 (Same As: l 05:54: Tessalon [place] 00 Perles) "Do Not Crush" simethicone No Notes: Heath bobo 6-28 (Same as: l 05:54: Mylicon) senna 8.6 No Notes: [facility] a mg oral 6-28 (Same as: l tablet 05:54: Senokot) [place] 00 Colace 50 No Notes: [facility] a mg oral 6-28 (Same as: l capsule 05:54: Colace) [place] 00 Zofran No Notes: [facility] 6-28 (Same as: l 05:54: Zofran) [place] 00 MEDICATION WASTE Product Size: 4 mg Product Wasted: ___ mg Tylenol No Notes: Do [facility] 6-28 not exceed l 05:54: 4 gm/day. [place] 00 (Same as: Tylenol) [place] No Notes: [...] mg oral 6-28 Refill(s) l tablet 05:53: 00 pantoprazol Yes 0 Memori a e 40 mg 6-28 Refill(s) l oral 05:53: [place] enteric 00 coated tablet clindamycin Yes 0 [facility] a 300 mg oral 6-28 Refill(s) l capsule 05:53: [place] 00 clopidogrel No 0 [facility] a 75 mg oral 6-28 Refill(s) l tablet 05:53: atorvastati 2021-0 Yes 0 [facility] a n 40 mg 6-28 Refill(s) l oral tablet 05:53: Basaglar 2021-0 Yes 0 [facility] KwikPen 100 6-28 Refill(s) l units/mL 05:53: s solution Dialyvite 2021-0 Yes 0 [facility] 800 Ultra D 6-28 Refill(s) l oral tablet 05:53: glipiZIDE 2021-0 Yes 0 [facility] 10 mg [...] 6-28 Refill(s) l oral tablet 05:53: glipiZIDE 2021-0 Yes 0 [facility] 10 mg [...] KwikPen 100 6-28 Refill(s) l units/mL 05:53: ne s solution Dialyvite 0 Yes 0 [facility] 800 Ultra D 6-28 Refill(s) l oral tablet 05:53: glipiZIDE 0 Yes 0 [facility] 10 mg oral 6-28 Refill(s) l tablet 05:53: citalopram 2021-0 Yes 0 [facility] 20 mg oral 6-28 Refill(s) l tablet 05:53: pantoprazol 2021-0 Yes 0 Memori a e 40 mg 6-28 Refill(s) l oral 05:53: coated tablet clindamycin 0 Yes 0 [facility] a 300 mg oral 6-28 Refill(s) l capsule 05:53: clopidogrel 2021-0 No 0 [facility] a 75 mg oral 6-28 Refill(s) l tablet 05:53: atorvastati 2021-0 Yes 0 [facility] a n 40 mg 6-28 Refill(s) l oral tablet 05:53: Basaglar 0 Yes 0 [facility] KwikPen 100 6-28 Refill(s) l units/mL 05:53: s solution Dialyvite 0 Yes 0 [facility] 800 Ultra D 6-28 Refill(s) l oral tablet 05:53: glipiZIDE 2021-0 Yes 0 [facility] 10 mg oral 6-28 Refill(s) l tablet 05:53: cefTRIAXone 2021-0 No Notes: Heath bobo + Sodium 6-28 (Same As: l Chloride 05:27: Rocephin). Her clayton 0.9% IV 50 00 Use with mL 100 mL NS and infuse over 30 min MEDICATION WASTE Product Size: 1000 mg Product Wasted: ___ mg cefTRIAXone 2021-0 No Notes: Heath bobo + Sodium 6-28 (Same As: l Chloride 05:27: Rocephin). Her clayton 0.9% IV 50 00 Use with mL 100 mL NS and infuse over 30 min MEDICATION WASTE Product Size: 1000 mg Product Wasted: ___ mg cefTRIAXone 2021-0 No Notes: Heath bobo + Sodium 6-28 (Same As: l Chloride 05:27: Rocephin). Her clayton 0.9% IV 50 00 Use with mL 100 mL NS and infuse over 30 min MEDICATION WASTE Product Size: 1000 mg Product Wasted: ___ mg cefTRIAXone 2021-0 No Notes: Heath bobo + Sodium 6-28 [...] oria 6-28 IV push l 03:37: reconstitu [place] 00 te with 10 ml 0.9% sodium chloride and push over 2 minutes. (Same as: Protonix) Protonix No Notes: For Mem o[facility] 6-28 IV push l 03:37: reconstitu [place] 00 te with 10 ml 0.9% sodium chloride and push over 2 minutes. (Same as: Protonix) Protonix No Notes: For Mem oria 6-28 IV push l 03:37: reconstitu [place] 00 te with 10 ml 0.9% sodium chloride and push over 2 minutes. (Same as: Protonix) Advair HFA Advair HFA 2019-0 Yes La 2 puffs Common 1-15 [facility] 00:00: - [facility] 00 [facility] BD BD 2019- Yes La 1 needle Common Ultra-Fine Ultra-Fine 0-09 Fortune with Sp jerome Christina Pen Christina Pen 00:00: Basaglar - [facility] Harrison Harrison 00 [facility] 2018-05 No QD BD Ultra-Fine Ultra-Fine 0-09 Ultra-Fine Christina Pen Christina Pen 00:00: Christina Pen Harrison 4mm Harrison 4mm 00 Harrison x 32Gm x 32Gm 4mm x 32Gm [facility] 2018-05 No QD BD Ultra-Fine Ultra-Fine 0-09 Ultra-Fine Christina Pen Christina Pen 00:00: Christina Pen Harrison 4mm Harrison 4mm 00 Harrison x 32Gm x 32Gm 4mm x 32Gm [facility] 2018-05 No QD BD Ultra-Fine Ultra-Fine 0-09 Ultra-Fine Christina Pen Christina Pen 00:00: Christina Pen Harrison 4mm Harrison 4mm 00 Harrison x 32Gm x 32Gm 4mm x 32Gm [facility] 2018-05 No QD BD Ultra-Fine Ultra-Fine 0-09 Ultra-Fine Christina Pen Christina Pen 00:00: Christina Pen Harrison 4mm Harrison 4mm 00 Harrison x 32Gm x 32Gm 4mm x 32Gm [facility] 2018-05 No QD BD Ultra-Fine Ultra-Fine 0-09 Ultra-Fine Christina Pen Christina Pen 00:00: Christina Pen Harrison 4mm Harrison 4mm 00 Harrison x 32Gm x 32Gm 4mm x 32Gm [facility] 2018-05 No QD BD Ultra-Fine Ultra-Fine 0-09 Ultra-Fine Christina Pen Christina Pen 00:00: Christina Pen Harrison 4mm Harrison 4mm 00 Harrison x 32Gm x 32Gm 4mm x 32Gm [facility] 2018-05 No QD BD Ultra-Fine Ultra-Fine 0-09 Ultra-Fine Christina Pen Christina Pen 00:00: Christina Pen Harrison 4mm Harrison 4mm 00 Harrison x 32Gm x 32Gm 4mm x 32Gm [facility] 2018-05 No QD BD Ultra-Fine Ultra-Fine 0-09 Ultra-Fine Christina Pen Christina Pen 00:00: Christina Pen Harrison 4mm Harrison 4mm 00 Harrison x 32Gm x 32Gm 4mm x 32Gm [facility] 2018- No QD BD Ultra-Fine Ultra-Fine 0-09 Ultra-Fine Christina Pen Christina Pen 00:00: Christina Pen Harrison 4mm Harrison 4mm 00 Harrison x 32Gm x 32Gm 4mm x 32Gm [facility] 2018- No QD BD Ultra-Fine Ultra-Fine 0-09 Ultra-Fine Christina Pen Christina Pen 00:00: Christina Pen Harrison 4mm Harrison 4mm 00 Harrison x 32Gm x 32Gm 4mm x 32Gm [facility] 2018- No QD BD Ultra-Fine Ultra-Fine 0-09 Ultra-Fine Christina Pen Christina Pen 00:00: Christina Pen Harrison 4mm Harrison 4mm 00 Harrison x 32Gm x 32Gm 4mm x 32Gm [facility] 2018- No QD BD Ultra-Fine Ultra-Fine 0-09 Ultra-Fine Christina Pen Christina Pen 00:00: Christina Pen Harrison 4mm Harrison 4mm 00 Harrison x 32Gm x 32Gm 4mm x 32Gm [facility] 2018- No QD BD Ultra-Fine Ultra-Fine 0-09 Ultra-Fine Christina Pen Christina Pen 00:00: Christina Pen Harrison 4mm Harrison 4mm 00 Harrison x 32Gm x 32Gm 4mm x 32Gm [facility] 2018- No QD BD Ultra-Fine Ultra-Fine 0-09 Ultra-Fine Christina Pen Christina Pen 00:00: Christina Pen Harrison 4mm Harrison 4mm 00 Harrison x 32Gm x 32Gm 4mm x 32Gm [facility] 2018- No QD BD Ultra-Fine Ultra-Fine 0-09 Ultra-Fine Christina Pen Christina Pen 00:00: Christina Pen Harrison 4mm Harrison 4mm 00 Harrison x 32Gm x 32Gm 4mm x 32Gm [facility] 2018- No QD BD Ultra-Fine Ultra-Fine 0-09 Ultra-Fine Christina Pen Christina Pen 00:00: Christina Pen Harrison 4mm Harrison 4mm 00 Harrison x 32Gm x 32Gm 4mm x 32Gm [facility] 2018- No QD BD Ultra-Fine Ultra-Fine 0-09 Ultra-Fine Christina Pen Christina Pen 00:00: Christina Pen Harrison 4mm Harrison 4mm 00 Harrison x 32Gm x 32Gm 4mm x 32Gm [facility] 2018- No QD BD Ultra-Fine Ultra-Fine 0-09 Ultra-Fine Christina Pen Christina Pen 00:00: Christina Pen Harrison 4mm Harrison 4mm 00 Harrison x 32Gm x 32Gm 4mm x 32Gm [facility] 2018- No QD BD Ultra-Fine Ultra-Fine 0-09 Ultra-Fine Chritsina Pen Christina Pen 00:00: Christina Pen Harrison 4mm Harrison 4mm 00 Harrison x 32Gm x 32Gm 4mm x 32Gm [facility] 2018- No QD BD Ultra-Fine Ultra-Fine 0-09 Ultra-Fine Christina Pen Christina Pen 00:00: Christina Pen Harrison 4mm Harrison 4mm 00 Harrison x 32Gm x 32Gm 4mm x 32Gm BD BD 2018-05 No QD BD Ultra-Fine Ultra-Fine 0-09 Ultra-Fine Christina Pen Christina Pen 00:00: Christina Pen Harrison 4mm Harrison 4mm 00 Harrison x 32Gm x 32Gm 4mm x 32Gm BD BD 2018-05 No QD BD Ultra-Fine Ultra-Fine 0-09 Ultra-Fine Christina Pen Christina Pen 00:00: Christina Pen Harrison 4mm Harrison 4mm 00 Harrison x 32Gm x 32Gm 4mm x 32Gm Carvedilol Carvedilol No Carvedilol 12.5 MG 12.5 [...] Dexcom G6 Dexcom G6 No Dexcom G6 Laboratory Clerk - Laboratory Clerk - Laboratory Clerk - Ipratropium Ipratropium No Ipratropiu -Albuterol -Albuterol [...] Dexcom G6 Dexcom G6 No Dexcom G6 Laboratory Clerk - Laboratory Clerk - Laboratory Clerk - Gentle Gentle No 1{table QD Gentle [...] Dexcom G6 Dexcom G6 No Dexcom G6 Laboratory Clerk - Laboratory Clerk - Laboratory Clerk - PreserVisio PreserVisio No PreserVisi n AREDS [...] Dexcom G6 Dexcom G6 No Dexcom G6 Laboratory Clerk - Laboratory Clerk - Laboratory Clerk - Advair HFA Advair HFA No 2{puffs [...] Dexcom G6 Dexcom G6 No Dexcom G6 Laboratory Clerk - Laboratory Clerk - Laboratory Clerk - Advair HFA Advair HFA No 2{puffs [...] Dexcom G6 Dexcom G6 No Dexcom G6 Laboratory Clerk - Laboratory Clerk - Laboratory Clerk - Advair HFA Advair HFA No 2{puffs [...] Dexcom G6 Dexcom G6 No Dexcom G6 Laboratory Clerk - Laboratory Clerk - Laboratory Clerk - Atorvastati Atorvastati No 1{table QD Atorvastat [...] Dexcom G6 Dexcom G6 No Dexcom G6 Laboratory Clerk - Laboratory Clerk - Laboratory Clerk - Atorvastati Atorvastati No Atorvastat n Calcium [...] Dexcom G6 Dexcom G6 No Dexcom G6 Laboratory Clerk - Laboratory Clerk - Laboratory Clerk - Atorvastati Atorvastati No Atorvastat n Calcium [...] HFA No 2{puffs BID Advair HFA 230- 230 } 230-21 MCG/ACT MCG/ACT MCG/ACT Citalopram Citalopram [...] 32G X 4 U/F 32G X 4 Chirstina U/F MM MM 32G X 4 MM [...] Adult - Tums E-X Tums E-X Yes La 1 tablet C ommon 750 750 [facility] Basaglar Basaglar Yes La 52 Units C ommon KwikPen KwikPen [facility] PreserVisio PreserVisio Yes La as Common n AREDS n AREDS [facility] directed [facility] it [facility] Citalopram Citalopram Yes La 1 tablet Common Hydrobromid Hydrobromid [facility] Stool Stool Yes La not Common Softener Softener Fortune defined Spi rit [facility] Gentle Gentle Yes Al 1 tablet Commo n Laxative Laxative Fortune as needed S pirit [facility] Atorvastati Atorvastati Yes La 1 tablet Common n Calcium n Calcium Fortune Spir [facility] Contour Contour Yes La USE 3 Common Test Test Fortune TIMES A [facility] DAY [facility] Eliquis 2.5 Eliquis 2.5 Yes [place] 1 tablet Common mg mg Fortune [facility] Multivitami Multivitami Yes La as Common n Adult n Adult Fortune directed Spir [facility] Carvedilol Carvedilol Yes La TAKE 1 Common Fortune TABLET BY Spirit MOUTH - CHI TWICE A DAY ON [facility] DIALYSIS Medical DAYS [place] Atorvastati Atorvastati Yes La TAKE 1 Common n Calcium n Calcium Fortune TABLET BY [facility] MOUTH - CHI EVERY DAY [facility] GlipiZIDE GlipiZIDE Yes La 1 tablet Common Fortune [facility] Basaglar Basaglar Yes La 50 Units C ommon KwikPen KwikPen Fortune [facility] Advair HFA Advair HFA No 2{puffs [...] Dexcom G6 Dexcom G6 No Dexcom G6 Laboratory Clerk - Laboratory Clerk - Laboratory Clerk - Carvedilol Carvedilol No Carvedilol 12.5 MG [...] Dexcom G6 Dexcom G6 No Dexcom G6 Laboratory Clerk - Laboratory Clerk - Laboratory Clerk - glipiZIDE 5 glipiZIDE 5 No 1{table [...] 750 750 MG t} 750 750 MG Immunizations Ordered Immunization Filled Immunization Date Status Commen ts Source Name Name FluAD FluAD 2021-03-30 [facility] - [facility] FluAD FluAD 2021-03-30 [facility] - [facility] FluAD FluAD 2021-03-30 [facility]:13:00 - [facility] FluAD FluAD 2021-03-30 [facility]:13:00 - [facility] FluAD FluAD 2021-03-30 [facility]:13:00 - [facility] FluAD FluAD 2021-03-30 [facility]pleted [facility]:13:00 - [facility] FluAD FluAD 2021-03-30 [facility]pleted [facility] 13:13:00 - [facility] FluAD FluAD 2021-03-30 [facility]pleted [facility] 13:13:00 - [facility] FluAD FluAD 2021-03-30 [facility]pleted [facility]:13:00 - [facility] FluAD FluAD 2021-03-30 [facility]pleted [facility] 13:13:00 - [facility] FluAD FluAD 2021-03-30 [facility]pleted [facility]:13:00 - [facility] FluAD FluAD 2021-03-30 [facility]pleted [facility] 13:13:00 - [facility] FluAD FluAD 2021-03-30 [facility]pleted [facility]:13:00 - [facility] FluAD FluAD 2021-03-30 [facility]pleted [facility]:13:00 - [facility] FluAD FluAD 2021-03-30 [facility]pleted [facility] 13:13:00 - [facility] FluAD FluAD 2021-03-30 [facility]pleted [facility] 13:13:00 - [facility] FluAD FluAD 2021-03-30 [facility]pleted [facility]:13:00 - [facility] FluAD FluAD 2021-03-30 [facility]pleted [facility] 13:13:00 - [facility] FluAD FluAD 2021-03-30 [facility]pleted [facility]:13:00 - [facility] FluAD FluAD 2021-03-30 [facility]pleted [facility] 13:13:00 - [facility] COVID-19 Vaccine COVID-19 Vaccine 2020-08-19 Completed [facility] ([facility]rea[facility] (Andrea) 09:17:00 - [facility] COVID-19 Vaccine COVID-19 Vaccine 2020-08-19 Completed [facility] ([facility]rea[facility] (Andrea) 09:17:00 [facility] COVID-19 Vaccine COVID-19 Vaccine 2020-08-19 Completed [facility] (Andrea[facility] (Andrea) 09:17:00 [facility] COVID-19 Vaccine COVID-19 Vaccine 2020-08-19 Completed [facility] (Andrea[facility] (Andrea) 09:17:00 [facility] COVID-19 Vaccine COVID-19 Vaccine 2020-08-19 Completed [facility] (Andrea[facility] (Andrea) 09:17:00 - [facility] COVID-19 Vaccine COVID-19 Vaccine 2020-08-19 Completed [facility] (Andrea[facility] (Andrea) 09:17:00 [facility] COVID-19 Vaccine COVID-19 Vaccine 2020-08-19 Completed [facility] (Andrea[facility] (Andrea) 09:17:00 [facility] COVID-19 Vaccine COVID-19 Vaccine 2020-08-19 Completed [facility] (Andrea[facility] (Andrea) 09:17:00 [facility] COVID-19 Vaccine COVID-19 Vaccine 2020-08-19 Completed [facility] (Andrea[facility] (Andrea) 09:17:00 [facility] COVID-19 Vaccine COVID-19 Vaccine 2020-08-19 Completed [facility] (Andrea[facility] (Andrea) 09:17:00 [facility] COVID-19 Vaccine COVID-19 Vaccine 2020-08-19 Completed [facility] (Andrea[facility] (Andrea) 09:17: [facility] COVID-19 Vaccine COVID-19 Vaccine 2020-08-19 Completed [facility] (Andrea[facility] (Andrea) 09:17:00 - [facility] COVID-19 Vaccine COVID-19 Vaccine 2020-08-19 Completed [facility] (Andrea[facility] (Andrea) 09:17:00 - [facility] COVID-19 Vaccine COVID-19 Vaccine 2020-08-19 Completed [facility] (Andrea[facility] (Andrea) 09:17:00 - [facility] COVID-19 Vaccine COVID-19 Vaccine 2020-08-19 Completed [facility] (Andrea[facility] (Andrea) 09:17:00 [facility] COVID-19 Vaccine COVID-19 Vaccine 2020-08-19 Completed [facility] (Andrea[facility] (Andrea) 09:17:00 [facility] COVID-19 Vaccine COVID-19 Vaccine 2020-08-19 Completed [facility] (Andrea[facility] (Andrea) 09:17:00 [facility] COVID-19 Vaccine COVID-19 Vaccine 2020-08-19 Completed [facility] (Andrea[facility] (Andrea) 09:17:00 [facility] COVID-19 Vaccine COVID-19 Vaccine 2020-08-19 Completed [facility] (Andrea[facility] (Andrea) 09:17:00 [facility] COVID-19 Vaccine COVID-19 Vaccine 2020-08-19 Completed [facility] (Andrea[facility] (Andrea) 09:17:00 [facility] COVID-19 Vaccine COVID-19 Vaccine 2020-08-19 Completed [facility] (Andrea[facility] (Andrae) 09:17:00 [facility] COVID-19 Vaccine COVID-19 Vaccine 2020-08-19 Completed [facility] (Andrea[facility] (Andrea) 09:17:00 [facility] Vital Signs Vital Name Observation Time Observation Value Comments Source Systolic blood 2022-10-31 17:36:00 132 mm[Hg] Univer sity of pressure [facility] Diastolic blood 2022-10-31 17:36:00 61 mm[Hg] Unive rsity of pressure [facility] Heart rate 2022-10-31 17:36:00 67 /min [facility] Respiratory rate 2022-10-31 17:36:00 19 /min [facility] ersity of [facility] Oxygen saturation in 2022-10-31 17:36:00 100 /min [facility] Arterial blood by [facility] Pulse oximetry Branch Body temperature 2022-10-31 13:59:00 37.39 [address] [facility] ersity of [facility] Body height 2022-10-31 13:59:00 177.8 cm [facility] Body weight 2022-10-31 13:59:00 71.668 kg [facility] BMI 2022-10-31 13:59:00 22.67 kg/m2 [facility] Heart rate 2022-10-15 19:00:00 92 /min [facility] of [facility] Respiratory rate 2022-10-15 19:00:00 13 /min [facility] Oxygen saturation in 2022-10-15 19:00:00 86 /min [facility] Arterial blood by [facility] Pulse oximetry Branch Systolic blood 2022-10-15 17:00:00 144 mm[Hg] Univer sity of pressure [facility] Diastolic blood 2022-10-15 17:00:00 53 mm[Hg] Unive rsity of pressure [facility] Body temperature 2022-10-15 16:08:00 37.44 [address] [facility] Body weight 2022-10-15 14:00:00 70.489 kg [facility] BMI 2022-10-15 14:00:00 25.86 kg/m2 [facility] of [facility] Body height 2022-10-10 19:00:00 165.1 cm [facility] height 2022-02-17 15:00:00 70 [in_i] [facility] weight 2022-02-17 15:00:00 208 [lb_av] [facility] temperature 2022-02-17 15:00:00 98.1 [degF] [facility] bmi 2022-02-17 15:00:00 29.84 kg/m2 [facility] blood pressure 2022-02-17 15:00:00 121 mm[Hg] [facility] systolic [facility] blood pressure 2022-02-17 15:00:00 61 mm[Hg] [facility] - diastolic [facility] height 2022-01-06 14:30:00 70 [in_i] [facility] - [facility] weight 2022-01-06 14:30:00 208 [lb_av] [facility] - [facility] bmi 2022-01-06 14:30:00 29.84 kg/m2 [facility] - [facility] blood pressure 2022-01-06 14:30:00 137 mm[Hg] [facility] - systolic [facility] blood pressure 2022-01-06 14:30:00 79 mm[Hg] [facility] - diastolic [facility] height 2021-11-03 09:45:00 70 [in_i] [facility] - [facility] weight 2021-11-03 09:45:00 210 [lb_av] [facility] - [facility] bmi 2021-11-03 09:45:00 30.13 kg/m2 [facility] - [facility] blood pressure 2021-11-03 09:45:00 144 mm[Hg] [facility] - systolic [facility] blood pressure 2021-11-03 09:45:00 86 mm[Hg] [facility] - diastolic [facility] height 2021-07-28 14:10:00 70 [in_i] [facility] - [facility] weight 2021-07-28 14:10:00 211.8 [lb_av] [facility] temperature 2021-07-28 14:10:00 97.5 [degF] [facility] - [facility] bmi 2021-07-28 14:10:00 30.39 kg/m2 [facility] - [facility] oximetry 2021-07-28 14:10:00 93 % [facility] S pirit [facility] respiratory rate 2021-07-28 14:10:00 16 /min Comm on [facility] blood pressure 2021-07-28 14:10:00 134 mm[Hg] [facility] - systolic [facility] blood pressure 2021-07-28 14:10:00 63 mm[Hg] Common [facility] - diastolic [facility] height 2021-07-28 13:20:00 70 [in_i] [facility] weight 2021-07-28 13:20:00 211.8 [lb_av] Common [facility] temperature 2021-07-28 13:20:00 97.5 [degF] [facility]irit [facility] bmi 2021-07-28 13:20:00 30.39 kg/m2 Common S [facility] oximetry 2021-07-28 13:20:00 93 % Common [facility] respiratory rate 2021-07-28 13:20:00 16 /min Comm on [facility] blood pressure 2021-07-28 13:20:00 134 mm[Hg] Common [facility] - systolic [facility] blood pressure 2021-07-28 13:20:00 62 mm[Hg] Common [facility] - diastolic [facility] height 2021-04-28 13:10:00 70 [in_i] Common [facility] weight 2021-04-28 13:10:00 215.9 [lb_av] Common [facility] temperature 2021-04-28 13:10:00 97.3 [degF] Common S pirit [facility] bmi 2021-04-28 13:10:00 30.98 kg/m2 Common S [facility] oximetry 2021-04-28 13:10:00 95 % Common S [facility] respiratory rate 2021-04-28 13:10:00 17 /min Comm on [facility] blood pressure 2021-04-28 13:10:00 121 mm[Hg] Common [facility] - systolic [facility] blood pressure 2021-04-28 13:10:00 60 mm[Hg] Common [facility] - diastolic [facility] height 2021-03-12 09:30:00 70 [in_i] [facility] weight 2021-03-12 09:30:00 211.4 [lb_av] Common [facility] temperature 2021-03-12 09:30:00 97.7 [degF] [facility] bmi 2021-03-12 09:30:00 30.33 kg/m2 Common S [facility] oximetry 2021-03-12 09:30:00 95 % [facility] respiratory rate 2021-03-12 09:30:00 16 /min Comm on [facility] - [facility] blood pressure 2021-03-12 09:30:00 132 mm[Hg] Common [facility] - systolic [facility] blood pressure 2021-03-12 09:30:00 67 mm[Hg] Common [facility] - diastolic [facility] Heart Rate 2022-01-02 21:14:00 [facility] Respitory Rate 2022-01-02 21:14:00 [facility] [place] Systolic (mm Hg) 2022-01-02 21:14:00 [facility] [place] Diastolic (mm Hg) 2022-01-02 21:14:00 [facility] [place] Height 2022-01-02 17:28:00 167.64 cm [facility] BMI Calculated 2022-01-02 17:28:00 [facility] [place] Weight 2022-01-02 17:28:00 [facility] Systolic (mm Hg) 2022-01-02 17:28:00 [facility] [place] Diastolic (mm Hg) 2022-01-02 17:28:00 [facility] Heart Rate 2022-01-02 17:28:00 [facility] Respitory Rate 2022-01-02 17:28:00 [facility] Temperature Oral (F) 2022-01-02 17:28:00 97.5 F [facility] Temperature Oral (F) 2021-12-17 00:00:00 98.0 F [facility] Heart Rate 2021-12-17 00:00:00 [facility] Respitory Rate 2021-12-17 00:00:00 [facility] Systolic (mm Hg) 2021-12-17 00:00:00 [facility] Diastolic (mm Hg) 2021-12-17 00:00:00 [facility] [place] Heart Rate 2021-12-16 21:00:00 [facility] Respitory Rate 2021-12-16 21:00:00 [facility] Systolic (mm Hg) 2021-12-16 21:00:00 [facility] [place] Diastolic (mm Hg) 2021-12-16 21:00:00 [facility] [place] Temperature Oral (F) 2021-12-16 21:00:00 98.0 F [facility] Heart Rate 2021-12-16 20:20:00 [facility] Respitory Rate 2021-12-16 20:20:00 [facility] [place] Systolic (mm Hg) 2021-12-16 20:20:00 [facility] Diastolic (mm Hg) 2021-12-16 20:20:00 [facility] Temperature Oral (F) 2021-12-16 20:20:00 97.3 F [facility] Heart Rate 2021-12-15 08:58:06 [facility] Systolic (mm Hg) 2021-12-15 08:58:01 [facility] [place] Diastolic (mm Hg) 2021-12-15 08:58:01 [facility] [place] Heart Rate 2021-12-15 08:58:01 [facility] Temperature Oral (F) 2021-12-15 08:57:27 98.2 F [facility] Temperature Oral (F) 2021-12-15 05:00:00 97.5 F [facility] Heart Rate 2021-12-15 05:00:00 [facility] Systolic (mm Hg) 2021-12-15 05:00:00 [facility] Diastolic (mm Hg) 2021-12-15 05:00:00 [facility] Height 2021-12-15 03:03:00 177.8 cm [facility] Weight 2021-12-15 03:03:00 [facility] BMI Calculated 2021-12-15 03:03:00 [facility] [place] Temperature Oral (F) 2021-12-15 01:20:46 97.4 F [facility] Systolic (mm Hg) 2021-12-15 01:20:42 [facility] Diastolic (mm Hg) 2021-12-15 01:20:42 [facility] Respitory Rate 2021-12-15 00:45:00 [facility] [place] Height 2021-12-15 00:13:00 172.72 cm [facility] BMI Calculated 2021-12-15 00:13:00 [facility] [place] Weight 2021-12-15 00:13:00 [facility] Respitory Rate 2021-12-14 23:56:00 [facility] [place] Height 2021-12-14 23:34:00 172.72 cm [facility] Weight 2021-12-14 23:34:00 [facility] Respitory Rate 2021-12-14 23:18:00 [facility] [place] BMI Calculated 2021-12-14 19:29:00 [facility] [place] Temperature Oral (F) 2021-12-04 14:04:00 97.9 F [facility] Heart Rate 2021-12-04 14:04:00 [facility] Respitory Rate 2021-12-04 14:04:00 [facility] Systolic (mm Hg) 2021-12-04 14:04:00 [facility] [place] Diastolic (mm Hg) 2021-12-04 14:04:00 [facility] Temperature Oral (F) 2021-12-04 12:30:00 97.9 F [facility] Heart Rate 2021-12-04 12:30:00 [facility] Respitory Rate 2021-12-04 12:30:00 [facility] [place] Systolic (mm Hg) 2021-12-04 12:30:00 [facility] Diastolic (mm Hg) 2021-12-04 12:30:00 [facility] [place] Respitory Rate 2021-12-04 11:45:00 [facility] Heart Rate 2021-12-04 11:45:00 [facility] Temperature Oral (F) 2021-12-04 11:45:00 98.4 F [facility] Systolic (mm Hg) 2021-12-04 04:57:00 [facility] Diastolic (mm Hg) 2021-12-04 04:57:00 [facility] Weight 2021-12-03 23:22:00 [facility] Respitory Rate 2021-11-27 00:01:00 [facility] [place] Heart Rate 2021-11-26 21:50:00 [facility] Respitory Rate 2021-11-26 21:50:00 [facility] [place] Systolic (mm Hg) 2021-11-26 21:50:00 [facility] [place] Diastolic (mm Hg) 2021-11-26 21:50:00 [facility] Temperature Oral (F) 2021-11-26 18:40:00 98.0 F [facility] Heart Rate 2021-11-26 18:40:00 [facility] Respitory Rate 2021-11-26 18:40:00 [facility] [place] Systolic (mm Hg) 2021-11-26 18:40:00 [facility] Diastolic (mm Hg) 2021-11-26 18:40:00 [facility] [place] Heart Rate 2021-11-26 16:41:35 [facility] Systolic (mm Hg) 2021-11-26 16:41:27 [facility] [place] Diastolic (mm Hg) 2021-11-26 16:41:27 [facility] Temperature Oral (F) 2021-11-26 16:40:28 98.4 F [facility] Temperature Oral (F) 2021-11-26 13:00:17 98.3 F [facility] Height 2021-11-25 03:24:00 177.8 cm [facility] [place] BMI Calculated 2021-11-25 03:24:00 [facility] [place] Weight 2021-11-25 03:24:00 [facility] [place] Procedures Procedure Date / Time Performing Clinician Source Performed CT ABDOMEN PELVIS WO 2022-10-31 14:52:20 Ronnie Ayala [facility] CONTRAST [facility] Branch CT THORAX WO CONTRAST 2022-10-31 14:52:20 Ronnie Ayala [facility] LIPASE 2022-10-31 14:22:00 Ronnie Ayala [facility] COMP. METABOLIC PANEL 2022-10-31 14:22:00 Ronnie Ayala [facility] ([id number]) Medical Branch CBC WITH DIFF 2022-10-31 14:22:00 Ronnie Ayala [facility] NOTICE OF PRIVACY 2022-10-31 13:54:24 Doctor Unassigned, [facility] PRACTICES [facility] CONSENT/REFUSAL FOR 2022-10-31 13:53:28 Doctor Unassigned, [facility] DIAGNOSIS AND TREATMENT [facility] POCT GLUCOSE 2022-10-15 16:16[facility] XR CHEST 1 VW 2022-10-15 14:27:00 Abdoul [facility] POCT GLUCOSE 2022-10-15 12:24:00 [facility] BASIC METABOLIC PANEL 2022-10-15 09:26:00 Marianna Barbour [facility] (NA, K, CL, CO2, Medical Branch GLUCOSE, BUN, CREATININE, CA) CBC WITH DIFF 2022-10-15 09:26:00 Marianna Barbour [facility] PREPARE PACKED RBC 2022-10-15 05:15:09 Anita Sanchez [facility] POCT GLUCOSE 2022-10-15 01:54:00 Dominic [facility] (AUTOMATED) [facility] XR CHEST 1 VW 2022-10-15 01:09:38 [facility] IR THORACENTESIS WITH 2022-10-14 23:00:51 Marianna Barbour [facility] IMAGING [facility] GLUCOSE BODY FLUID 2022-10-14 22:53:[address] [facility] T.PROTEIN BODY FLUID 2022-10-14 22:53:00 Marianna Barbour [facility] BODY FLUID DIRECT COUNT 2022-10-14 22:53:00 Marianna Barbour [facility] BODY FLUID 2022-10-14 22:53:00 Marianna Barbour [facility] CULTURE(AEROBIC/ANAEROB [facility] IC) L[facility] TOTAL BODY FLUID 2022-10-14 22:53:00 Marianna Barbour [facility] XR CHEST 1 VW 2022-10-14 22:38:00 Josi Schreiber [facility] POCT GLUCOSE 2022-10-14 21:38:00 Mine Mosqueda [facility] (AUTOMATED) [facility] HEPATITIS B SURFACE 2022-10-14 19:06:00 Anita Sanchez [facility] ANTIBODY [facility] HEPATITIS B SURFACE 2022-10-14 19:06:00 Anita Sanchez [facility] ANTIGEN [facility] POCT GLUCOSE 2022-10-14 16:36:00 [facility] (AUTOMATED) Medical Branch POCT GLUCOSE 2022-10-14 12:50:00 [facility] (AUTOMATED) Medical Branch PHOSPHORUS 2022-10-14 08:27:00 Mine Mosqueda [facility] MAGNESIUM 2022-10-14 08:27:00 [facility] BASIC METABOLIC PANEL 2022-10-14 08:27:00 Mine Mosqueda [facility] (NA, K, CL, CO2, Medical Branch GLUCOSE, BUN, CREATININE, CA) VANCOMYCIN TROUGH 2022-10-14 08:27:[address] [facility] CBC WITH DIFF 2022-10-14 08:27:00 Mine Mosqueda [facility] DISCLOSURE AND CONSENT, 2022-10-14 05:01:00 Doctor Unassigned, U [facility] MEDICAL AND SURGICAL [place] [facility] PROCEDURES POCT GLUCOSE 2022-10-14 03:13:00 Mine Mosqueda [facility] (AUTOMATED) [facility] POCT GLUCOSE 2022-10-13 21:41:00 Mine Mosqueda [facility] (AUTOMATED) [facility] POCT GLUCOSE 2022-10-13 16:25:00 Mine Mosqueda [facility] (AUTOMATED) Medical Branch POCT GLUCOSE 2022-10-13 12:34:00 Mine Mosqueda [facility] (AUTOMATED) [facility] BASIC METABOLIC PANEL 2022-10-13 09:16:00 Mine Mosqueda [facility] (NA, K, CL, CO2, Medical Branch GLUCOSE, BUN, CREATININE, CA) CBC WITH DIFF 2022-10-13 09:16:00 [facility] POCT GLUCOSE 2022-10-13 01:24:00 [facility] (AUTOMATED) [facility] POCT GLUCOSE 2022-10-12 21:23:00 [facility] (AUTOMATED) [facility] TRANSFUSE PACKED RBC 2022-10-12 18:39:00 Luis A [facility] PREPARE PACKED RBC 2022-10-12 18:29:53 Luis A [facility] POCT GLUCOSE 2022-10-12 16:47:00 [facility] (AUTOMATED) [facility] BLOOD CULTURE SCREEN 2022-10-12 15:52:00 Luis A [facility] BLOOD CULTURE SCREEN 2022-10-12 15:40:00 Luis A [facility] XR CHEST 1 VW 2022-10-12 14:31:35 [facility] POCT GLUCOSE 2022-10-12 12:44:00 [facility] (AUTOMATED) [facility] PHOSPHORUS 2022-10-12 09:58:00 [facility] MAGNESIUM 2022-10-12 09:58:00 [facility] TROPONIN I 2022-10-12 09:58:00 Tim Alejandro [facility] BASIC METABOLIC PANEL 2022-10-12 09:58:00 Mine Mosqueda [facility] (NA, K, CL, CO2, Medical Branch GLUCOSE, BUN, CREATININE, CA) LIPID PANEL 2022-10-12 09:58:[address] [facility] ([id number])(TOTAL Medical Branch CHOLESTEROL, TRIGLYCERIDES, HDL) CBC WITH DIFF 2022-10-12 09:58:00 [facility] N-TERMINAL PRO-BNP 2022-10-12 09:58:[address] [facility] POCT GLUCOSE 2022-10-12 06:42:00 [facility]ic[facility] (AUTOMATED) Medical Branch TROPONIN I 2022-10-12 03:10:00 [facility] PO[facility]SE 2022-10-12 01:19:00 [facility] (AUTOMATED) [facility] OCCULT (GUAIAC) BLOOD 2022-10-11 21:58:00 [facility] POCT GLUCOSE 2022-10-11 21:19:00 [facility] (AUTOMATED) Medical Branch IRON 2022-10-11 18:20:00 [facility] TOTAL IRON BINDING 2022-10-11 18:20:00 [facility] CAPACITY Medical Branch TROPONIN I 2022-10-11 18:20:00 Luis A [facility] RETICULOCYTES AUTOMATED 2022-10-11 18:20:[address] [facility] PROCALCITONIN 2022-10-11 18:20:00 [facility] POCT GLUCOSE 2022-10-11 16:58:00 [facility] (AUTOMATED) [facility] POCT GLUCOSE 2022-10-11 16:05:00 [facility] (AUTOMATED) [facility] ABORH CONFIRMATION (LAB 2022-10-11 15:23:00 Luis A [facility]) Medical Branch TROPONIN I 2022-10-11 15:08:00 Luis A [facility] POCT GLUCOSE 2022-10-11 14:22:00 Mine Mosqueda [facility] (AUTOMATED) [facility] TRANSTHORACIC ECHO 2022-10-11 13:32:00 Luis A [facility] (TTE) COMPLETE Medical Branch POCT GLUCOSE 2022-10-11 13:04:00 [facility] (AUTOMATED) Medical Branch POCT GLUCOSE 2022-10-11 12:04:00 [facility] (AUTOMATED) Medical Branch POCT GLUCOSE 2022-10-11 11:21:00 [facility] (AUTOMATED) [facility] HB ABO GROUPING 2022-10-11 11:20:00 Luis A [facility] PHOSPHORUS 2022-10-11 09:41:00 Luis A [facility] MAGNESIUM 2022-10-11 09:41:00 Luis A [facility] TROPONIN I 2022-10-11 09:41:00 Luis A [facility] BASIC METABOLIC PANEL 2022-10-11 09:41:00 Luis A [facility] (NA, K, CL, CO2, Medical Branch GLUCOSE, BUN, CREATININE, CA) CBC WITHOUT DIFF 2022-10-11 09:41:00 Luis A [facility] POCT GLUCOSE 2022-10-11 09:41:00 [facility] (AUTOMATED) [facility] N-TERMINAL PRO-BNP 2022-10-11 09:41:00 Luis A [facility] POCT GLUCOSE 2022-10-11 08:43:00 [facility] (AUTOMATED) [facility] POCT GLUCOSE 2022-10-11 07:36:00 [facility] (AUTOMATED) [facility] POCT GLUCOSE 2022-10-11 06:18:00 [facility] (AUTOMATED) [facility] POCT GLUCOSE 2022-10-11 05:52:00 [facility] (AUTOMATED) [facility] POCT GLUCOSE 2022-10-11 04:24:00 [facility] (AUTOMATED) [facility] POCT GLUCOSE 2022-10-11 03:33:00 [facility] (AUTOMATED) [facility] POCT GLUCOSE 2022-10-11 02:08:00 [facility] (AUTOMATED) [facility] POCT GLUCOSE 2022-10-11 01:08:00 [facility] (AUTOMATED) [facility] MRSA / MSSA SCREEN BY 2022-10-11 00:16:00 Mine Mosqueda [facility] 2022-10-10 23:43:37 Fabian Fernandes [facility] POCT GLUCOSE 2022-10-10 23:20:00 Mine Mosqueda [facility] (AUTOMATED) [facility] POCT GLUCOSE 2022-10-10 21:42:00 Fabian Fernandes [facility] (AUTOMATED) [facility] POCT GLUCOSE 2022-10-10 21:25:00 Fabian Fernandes [facility] (AUTOMATED) [facility] HB ECG ROUTINE & RHYTHM 2022-10-10 21:20:02 Fabian Fernandes [facility] STRIP [facility] AC PANEL 21 + LACTIC 2022-10-10 20:50:00 Fabian Fernandes [facility] ACID [facility] POCT GLUCOSE 2022-10-10 20:32:00 Fabian Fernandes [facility] (AUTOMATED) [facility] CT THORAX WO CONTRAST 2022-10-10 20:31:25 Fabina Fernandes [facility] CT ABDOMEN PELVIS WO 2022-10-10 20:30:49 Fabian Fernandes [facility] CONTRAST [facility] CT HEAD WO CONTRAST 2022-10-10 20:30:49 Fabian Fernandes [facility] POCT GLUCOSE 2022-10-10 19:43:00 Fabian Fernandes [facility] (AUTOMATED) [facility] XR CHEST 1 VW 2022-10-10 19:40:00 Fabian Fernandes [facility] BLOOD CULTURE SCREEN 2022-10-10 19:38:00 Fabian Fernandes [facility] BLOOD CULTURE WORKUP 2022-10-10 19:38:00 Fabian Fernandes [facility] GRAM POSITIVE BLOOD 2022-10-10 19:38:[address] [facility] PATHOGENS DNA [facility] PROBE-AEROBIC ASSIGNMENT OF BENEFITS 2022-10-10 19:11:20 Doctor Unassigned, [facility] CONSENT/REFUSAL FOR 2022-10-10 19:10:59 Doctor Unassigned, [facility] DIAGNOSIS AND TREATMENT [place] [facility] TROPONIN I 2022-10-10 19:08:00 Fabian Fernandes [facility] COMP. METABOLIC PANEL 2022-10-10 19:08:00 Fabian Fernandes [facility] ([id number]) [facility] CBC WITH DIFF 2022-10-10 19:08:00 Fabian Fernandes [facility] GLYCOSYLATED HEMOGLOBIN 2022-10-10 19:08:00 Mine Mosqueda [facility] (A1C) [facility] N-TERMINAL PRO-BNP 2022-10-10 19:08:[address] [facility] POCT GLUCOSE 2022-10-10 18:58:00 Fabian Fernandes [facility] [place] (AUTOMATED) [facility] [id number] 2021-10-18 00:00:00 Andrade Marks P barb Encounters Start End Encounter Admission Attending Care Care Encounter Source Date/Time Date/Time Type Type Clinicians Facility Department ID 2022-05-20 Outpatient [facility], STLMLC STLMLC [id number] Common 08:24:01 [place] [facility] 2022-05-15 Outpatient [facility], STLMLC STLMLC [id number] Common 08:53:00 La [facility] 2022-05-11 Outpatient [facility], STLMLC STLMLC [id number] Common 14:49:00 La [facility] 2022-05-08 Outpatient [facility], STLMLC STLMLC [id number] Common 10:15:01 [place] [address] [facility] 2022-05-07 Outpatient [facility], STLMLC STLMLC [id number] [place] 11:53:00 [place] [address] [facility] 2022-02-18 Outpatient [facility], STLMLC STLMLC [id number] Common 12:05:01 [place] [facility] 2022-01-01 Outpatient [facility], STLMLC STLMLC [id number] Common 10:24:01 [place] [address] [facility] 2021-12-29 Outpatient [facility], STLMLC STLMLC [id number] Common 08:34:00 La [facility] 2021-12-16 Outpatient [facility] [id number] [place] 14:42:21 [id number] [facility] 2021-11-19 Outpatient [facility], STLMLC STLMLC [id number] Common 08:42:01 La [facility] 2021-11-03 Outpatient [facility], STLMLC STLMLC [id number] Common 10:33:01 La [facility] 2021-10-15 Outpatient 3 [id number] ENCPL REF [id number] [facility] 08:19:25 [facility] 2021-10-14 Outpatient 3 [id number] ENCPL REF [facility] 11:59:03 0517 [facility] [place] 2021-06-25 Outpatient [facility], STLMLC STLMLC [id number] [place] 14:22:06 [place] [address] [facility] 2021-06-25 Outpatient [facility], STLMLC STLMLC [id number] [place] 14:13:51 [place] [address] [facility] 2021-06-25 Outpatient [facility], STLMLC STLMLC [id number] Common 13:38:12 [place] [address] [facility] 2021-06-25 Outpatient [facility], STLMLC STLMLC [id number] [place] 12:43:29 [place] [address] [facility] 2021-06-25 Outpatient [facility], STLMLC STLMLC [id number] [place] 12:42:27 [place] [address] [facility] 2021-06-25 Outpatient [facility], STLMLC STLMLC [id number] [place] 12:31:12 [place] [address] [facility] 2021-06-25 Outpatient [facility], STLMLC STLMLC [id number] Common 12:31:03 [place] [address] [facility] 2021-06-25 Outpatient [facility], STLMLC STLMLC [id number] Common 12:30:21 [place] [address] [facility] 2021-06-25 Outpatient [facility], STLMLC STLMLC [id number] Common 11:00:43 [place] [address] [facility] 2022-10-31 2022-10-31 Emergency STEPHANIE TEJEDA ERT [id number] Univers 09:00:00 12:40:00 RONNIE rosalino [facility] 2022-10-31 2022-10-31 Emergency STEPHANIE Ayala [id number] Univers 09:00:00 12:40:00 Ronnie Shayna FOREIGN [id number] i ty of [place] [id number] [facility] [id number] [facility] 084 Branch 2022-10-16 2022-10-16 Transition SHAJI Davis [id number] Univers 00:00:00 00:00:00 of Care Ubaldo VELASQUEZY [id number] ity [facility] [id number] [facility] [id number] [facility] 403 Branch 2022-10-10 2022-10-15 Inpatient X [facility] [id number] Univers 13:54:00 14:40:00 MARIANNA ity [facility] 2022-10-10 2022-10-15 [facility] Fabian Fernandes [facility] [id number] Univers 13:54:00 14:40:00 Encounter Mine Mosqueda [id number] ity Marianna Barbour [id number] [facility] [id number] [facility] 080 Branch 2022-07-03 2022-07-03 (TEL) STLMLC STLMLC [id number] Co mmon 00:00:00 00:00:00 [facility] 2022-06-08 2022-06-08 (TEL) STLMLC STLMLC [id number] Co mmon 00:00:00 00:00:00 [facility] 2022-05-06 2022-05-06 (TEL) STLMLC STLMLC [id number] Co mmon 00:00:00 00:00:00 [facility] 2022-04-03 2022-04-03 (TEL) STLMLC STLMLC [id number] Co mmon 00:00:00 00:00:00 [facility] 2022-02-17 2022-02-17 (TEL) STLMLC STLMLC [id number] Co mmon 00:00:00 00:00:00 [facility] 2022-02-17 2022-02-17 OFFICE STLMLC STLMLC [id number] Co mmon 00:00:00 00:00:00 VISIT Spirit ESTAB PT - CHI LEVEL 4 [facility] 2022-01-06 2022-01-06 OFFICE STLMLC STLMLC [id number] Co mmon 00:00:00 00:00:00 VISIT Spirit ESTAB PT - CHI LEVEL 4 [facility] 2022-01-02 2022-01-02 [facility] [id number] Memoria 17:12:00 21:33:00 r Booker [address] [place] [address] 2022-01-02 2022-01-02 [facility] [id number] Memoria 17:12:00 21:33:[address] 2022-01-02 2022-01-02 Emergency JANE SOLIZBL [id number] 12:12:00 16:33:00 CAREY 2022-01-02 2022-01-02 Outpatient QUYNH Long [id number] 12:12:00 16:33:00 Carey R 03 2022-01-01 2022-01-01 (TEL) STLMLC STLMLC [id number] Co mmon 00:00:00 00:00:00 [facility] 2021-12-31 2021-12-31 (TEL) STLMLC STLMLC [id number] Co mmon 00:00:00 00:00:00 [facility] 2021-12-14 2021-12-17 [facility] [id number] Memoria 19:19:49 03:14:00 r Booker 02 [facility] 2021-12-14 2021-12-17 Inpatient [facility] [id number] Memoria 19:19:49 03:14:00 r Booker 02 [facility] 2021-12-14 2021-12-16 Inpatient E JANE BRUNO MED [id number] MHBL 18:26:00 22:14:00 ZACHARY 2021-12-14 2021-12-[address] [id number] 14:19:49 22:14:00 Zachary 2021-12-14 2021-12-14 Outpatient Ajibade, MHPL MHPL [id number] 14:19:49 14:19:49 [facility] 2021-12-03 2021-12-04 Emergency [facility] [id number] Memoria 23:19:26 14:53:00 r [place] [facility] 2021-12-03 2021-12-04 Emergency [facility] [id number] Memoria 23:19:26 14:53:00 r [place] [facility] 2021-12-03 2021-12-04 Outpatient Fadowole, MHPL MHPL [id number] 18:19:26 09:53:00 [facility] 2021-12-03 2021-12-04 Emergency E FADOWOLE, MHBL MHBL [id number] MHBL 18:19:00 09:53:00 PEPPER 2021-12-01 2021-12-01 Outpatient COH COH PIJFJKR ZIB COH 00:00:00 00:00:00 [id number] 2021-11-25 2021-11-27 Observatio [facility] [id number] Memoria 03:23:10 00:12:00 n r [place] 00 [facility] 2021-11-25 2021-11-27 Observatio [facility] [id number] Memoria 03:23:10 00:12:00 n r [place] 00 [facility] 2021-11-25 2021-11-26 Outpatient E AJIBADE, MHBL MED [id number] MHBL 10:37:00 19:12:00 MONSE 2021-11-24 2021-11-26 Outpatient Ajibade, MHPL MHPL [id number] 22:23:10 19:12:00 Monse [facility] 2021-11-24 2021-11-26 Outpatient Ajibade, MHPL MHPL [id number] 22:23:10 19:12:00 [facility] 2021-11-24 2021-11-24 [facility]TEL[facility] [id number] Co mmon 00:00:00 00:00:00 [facility] 2021-10-16 2021-11-03 Inpatient 3 NATHANIEL, ENCPL GILDA [id number] [facility] 23:26:00 21:40:00 CHILANGO 0519 [facility] [place] [facility] 2021-11-03 2021-11-03 OFFICE STLMLC STLMLC [id number] Co mmon 00:00:00 00:00:00 VISIT NEW [facility] it PT LEVEL 4 - [facility] 2021-10-17 2021-10-17 (TEL) STLMLC STLMLC [id number] Co mmon 00:00:00 00:00:00 [facility] 2021-08-12 2021-08-12 (TEL) STLMLC STLMLC [id number] Co mmon 00:00:00 00:00:00 [facility] 2021-07-28 2021-07-28 OFFICE STLMLC STLMLC [id number] Co mmon 00:00:00 00:00:00 VISIT [facility] PT - CHI LEVEL 4 [facility] 2021-07-28 2021-07-28 SUB ANNUAL STLMLC STLMLC [id number] Common 00:00:00 00:00:[address] [facility] VISIT [facility] 2021-06-12 2021-06-12 (TEL) STLMLC STLMLC [id number] Co mmon 00:00:00 00:00:00 [facility] 2021-05-21 2021-05-21 (TEL) STLMLC STLMLC [id number] Co mmon 00:00:00 00:00:00 [facility] 2021-04-28 2021-04-28 OFFICE STLMLC STLMLC [id number] Co mmon 00:00:00 00:00:00 VISIT [facility] PT - CHI LEVEL 4 [facility] 2021-03-26 2021-03-26 (TEL) STLMLC STLMLC [id number] Co mmon 00:00:00 00:00:00 [facility] 2021-03-12 2021-03-12 OFFICE STLMLC STLMLC [id number] Co mmon 00:00:00 00:00:00 VISIT [facility] LEVEL 4 [facility] 2021-02-10 2021-02-10 Outpatient STLMLC STLMLC [id number] Common 00:00:00 00:00:00 [facility] 2021-01-31 2021-01-31 Outpatient STLMLC STLMLC [id number] Common 00:00:00 00:00:00 [facility] 2021-01-13 2021-01-13 Outpatient STLMLC STLMLC [id number] Common 00:00:00 00:00:00 [facility] 2021-01-08 2021-01-08 Outpatient STLMLC STLMLC [id number] Common 00:00:00 00:00:00 [facility] 2020-12-31 2020-12-31 Outpatient STLMLC STLMLC [id number] Common 00:00:00 00:00:00 [facility] 2020-12-11 2020-12-11 Outpatient STLMLC STLMLC [id number] Common 00:00:00 00:00:00 [facility] 2020-08-19 2020-08-19 Outpatient STLMLC STLMLC [id number] Common 00:00:00 00:00:00 [facility] 2020-07-19 2020-07-19 Outpatient STLMLC STLMLC [id number] Common 00:00:00 00:00:00 [facility] 2020-07-15 2020-07-15 Outpatient STLMLC STLMLC [id number] Common 00:00:00 00:00:00 [facility] 2020-06-14 2020-06-14 Outpatient STLMLC STLMLC [id number] Common 00:00:00 00:00:00 [facility] 2020-06-05 2020-06-05 Outpatient STLMLC STLMLC [id number] Common 00:00:00 00:00:00 [facility] 2020-04-23 2020-04-23 Outpatient STLMLC STLMLC [id number] Common 00:00:00 00:00:00 [facility] 2020-04-22 2020-04-22 Outpatient STLMLC STLMLC [id number] Common 00:00:00 00:00:00 [facility] 2020-04-17 2020-04-17 Outpatient STLMLC STLMLC [id number] Common 00:00:00 00:00:00 [facility] 2020-01-15 2020-01-15 [facility] [id number] Common 10:45:00 10:45:[address] [facility] 2019-10-16 2019-10-16 Outpatient [facility] [id number] Common 13:00:00 13:00:[address] [facility] 2019-07-17 2019-07-17 Outpatient [facility] [id number] Common 13:45:00 13:45:[address] [facility] 2019-06-14 2019-06-14 Outpatient [facility] [id number] Common 11:45:00 11:45:[address] [facility] 2019-06-07 2019-06-07 Outpatient [facility] [id number] Common 11:57:00 11:57:[address] [facility] 2019-05-17 2019-05-17 Outpatient [facility] [id number] Common 11:30:00 11:30:[address] [facility] 2019-04-24 2019-04-24 Outpatient [facility] [id number] Common 14:52:00 14:52:[address] [facility] 2019-04-19 2019-04-19 Outpatient [facility] [id number] Common 14:45:00 14:45:[address] [facility] 2019-04-06 2019-04-06 Outpatient [facility] [id number] Common 08:35:00 08:35:[address] [facility] 2019-04-04 2019-04-04 Outpatient Cornelio Valentin 28 [id number] Common 08:34:00 08:34:[address] [facility] 2019-03-08 2019-03-08 Outpatient Cornelio Valentin [id number] Common 10:57:00 10:57:[address] [facility] 2019-02-20 2019-02-20 Outpatient Cornelio Valentin [id number] Common 14:00:00 14:00:[address] [facility] Results Test Description Test Time Test Comments Results Result Comments Source COMP. METABOLIC PANEL (98507) 2022-10-31 15:25:34 Test Item Value Reference Range Interpretation Comme nts NA (test code = 4182101098) 136 mmol/L 135-145 K (test code = 4675616678) 4.7 mmol/L 3.5-5.0 CL (test code = 8064636359) 96 mmol/L 98-108 L CO2 TOTAL (test code = 8337118024) 31 mmol/L 23-31 AGAP (test code = 1820997662) 9 2-16 BUN (test code = 5758325544) 26 mg/dL 7-23 H GLUCOSE (test code = 7861561656) 190 mg/dL 70-110 H CREATININE (test code = 2.56 mg/dL 0.60-1.25 H 6284902586) TOTAL BILI (test code = 0.9 mg/dL 0.1-1.2 5664505938) CALCIUM (test code = 1157385991) 9.6 mg/dL 8.6-10.6 T PROTEIN (test code = 8276714766) 6.4 g/dL 6.3-8.2 ALBUMIN (test code = 2576399552) 3.5 g/dL 3.5-5.0 ALK PHOS (test code = 6725277428) 307 U/L 34-122 H ALTv (test code = 1742-6) 27 U/L 5-50 AST(SGOT) (test code = 1666919973) 28 U/L 13-40 eGFR (test code = 6726754132) 24.5 mL/min/1.73m2 MALIK (test code = MALIK) [...] tests). Lab Interpretation (test code = Abnormal 96598-3) [facility]:25:34 Test Item Value Reference Range Interpretation Comments LIPASE (test code = 1044938897) 212 U/L 0-220 Lab Interpretation (test code = Normal 63261-0) [facility] [id number] 15:12:12 Test Item Value Reference Range Interpretation Comments WBC (test code = 4.75 See_Comment [Automated 3590-2) message] The sy stem which generated this [...] RDW-SD (test code = 45.4 fL 38.5-51.6 00275-7) RDW-CV (test code = 14.3 % 12.1-15.4 788-0) PLT (test code = 191 See_Comment [Automated 777-3) message] The sy stem which generated this result transmitted reference range : 150 - 328 10*3/ ?L. The reference r samantha was not used to interpret this result as normal/abnormal . MPV (test code = 10.1 fL 9.8-13.0 34675-1) NRBC/100 WBC (test 0.0 See_Comment [Automat ed code = 6508587548) message] The system which generated this result transmitted reference range : 0.0 - 10.0 /100 WBCs. The refer ence range was not u sed to interpret th is result as normal/abnormal . NRBC x10^3 (test code See_Comment [Auto mated = 1353031896) message] The s ystem which generated this result transmitted reference range : 10*3/?L. The reference range was not used to interpret this result as normal/abnormal . GRAN MAT (NEUT) % 62.8 % (test code = 770-8) IMM GRAN % (test code 0.60 % = 4796261323) LYMPH % (test code = 23.2 % 736-9) MONO % (test code = 10.9 % 5905-5) EOS % (test code = 2.3 % 713-8) BASO % (test code = 0.2 % 706-2) GRAN MAT x10^3(ANC) 2.98 10*3/uL 1.99-6.95 (test code = 8855736622) IMM GRAN x10^3 (test 0.03 10*3/uL 0.00-0.06 code = 4228074632) LYMPH x10^3 (test code 1.10 10*3/uL 1.09-3.23 = 731-0) MONO x10^3 (test code 0.52 10*3/uL 0.36-1.02 = 742-7) EOS x10^3 (test code = 0.11 10*3/uL 0.06-0.53 711-2) BASO x10^3 (test code 0.01-0.09 = 704-7) Lab Interpretation Abnormal (test code = 37182-5) [facility] GLUCOSE (AUTOMATED)2022-10-15 16:18:07 Test Item Value Reference Range Interpretation Comments POCT GLU (test code = 9253135518) 131 mg/dL 70-110 H Lab Interpretation (test code = Abnormal 83803-8) [facility] GLUCOSE (AUTOMATED)2022-10-15 12:27:02 Test Item Value Reference Range Interpretation Comments POCT GLU (test code = 0754796698) 220 mg/dL 70-110 H Lab Interpretation (test code = Abnormal 53692-4) [facility] P[facility] RBC (in units), 2 Units 2022-10-15 05:15:09 Test Item Value Reference Range Interpretation Comments Cross Match Result Compatible (test code = 4409) ISBT Blood Type Code 6200 (test code = 500357) Unit Blood Type (test A Pos code = 4410) Unit Number (test [id number] code = 4411) Blood Expiration Date & Time (test code = 770915) Status Information Released (test code = 4412) Product Red Blood Cells Identification (test code = 4413) Product Code (test [id number] Performed at [facility] code = 4414) Laboratory Services - [facility] Blood [id number] [place] [id number] Free: [phone] A No. [id number] [facility] GLUCOSE (AUTOMATED)2022-10-15 01:55:15 Test Item Value Reference Range Interpretation Comments POCT GLU (test code = 2386904087) 152 mg/dL 70-110 H Lab Interpretation (test code = Abnormal 53124-9) [facility] B Surface Antibody (HBsAb)2022-10-15 00:05:17 Test Item Value Reference Range Interpretation Comments HBsAB (test code = Negative 4419280448) HBsAb 3.80 mIU/mL Semi-Quantitative (test code = 4900399681) MALIK (test code = Interpretation: MALIK) ?Hepatitis B Surface Antibody ? Negative - Patient is considered to be not immune to infection with HBV. ? ? Positive - Anti-HBs detected at greater than or equal to 12 mIU/mL. ?Patient is considered to be immune to infection with HBV. ? [facility] B Surface Antigen (HBsAg)2022-10-14 23:47:58 Test Item Value Reference Range Interpretation Comments HBsAg Semi-Quantitative (test code = 0.09 Negative 5195-3) [facility] GLUCOSE (AUTOMATED)2022-10-14 21:41:48 Test Item Value Reference Range Interpretation Comments POCT GLU (test code = 9826934041) 118 mg/dL 70-110 H Lab Interpretation (test code = Abnormal 15882-8) [facility] GLUCOSE (AUTOMATED)2022-10-14 16:47:29 Test Item Value Reference Range Interpretation Comments POCT GLU (test code = 5386365741) 132 mg/dL 70-110 H Lab Interpretation (test code = Abnormal 87392-8) [facility] [id number] 14:16:04 Test Item Value Reference Range Interpretation Comments Blood Culture-Aerobic Culture positive. No growth AA P revious (test code = 68561-2) See Blood Culture p reliminary Workup for verified result additional was Culture In information. Progress on 10/10/2022 at 19 01 CDTPrevious preliminary verified result was No growth a t 24 hours on 10/11/2022 at 16 01 CDT Blood No organisms No growth Previous Culture-Anaerobic isolated preliminar y (test code = 86638-5) verifi ed result was Culture In Progress on 10/10/2022 at 19 01 CDTPrevious preliminary verified result was No growth a t 24 hours on 10/11/2022 at 16 01 CDTPrevious preliminary verified result was Culture In Progress on 10/12/2022 at 11 51 CDT Lab Interpretation Abnormal (test code = 70018-1) [facility] [id number] 14:16:04 Test Item Value Reference Range Interpretation Comments Blood Culture-Aerobic Culture positive. No growth AA P revious (test code = 94416-7) See Blood Culture p reliminary Workup for verified result additional was Culture In information. Progress on 10/10/2022 at 19 01 CDTPrevious preliminary verified result was No growth a t 24 hours on 10/11/2022 at 16 01 CDT Blood No organisms No growth Previous Culture-Anaerobic isolated preliminar y (test code = 44296-3) verif ed result was Culture In Progress on 10/10/2022 at 19 01 CDTPrevious preliminary verified result was No growth a t 24 hours on 10/11/2022 at 16 01 CDT Lab Interpretation Abnormal (test code = 76866-6) [facility] GLUCOSE (AUTOMATED)2022-10-14 12:54:35 Test Item Value Reference Range Interpretation Comments POCT GLU (test code = 1691671100) 221 mg/dL 70-110 H Lab Interpretation (test code = Abnormal 16139-6) [facility] GLUCOSE (AUTOMATED)2022-10-14 03:16:56 Test Item Value Reference Range Interpretation Comments POCT GLU (test code = 4326213238) 129 mg/dL 70-110 H Lab Interpretation (test code = Abnormal 99093-8) [facility] GLUCOSE (AUTOMATED)2022-10-13 21:44:17 Test Item Value Reference Range Interpretation Comments POCT GLU (test code = 2500201079) 95 mg/dL 70-110 Lab Interpretation (test code = Normal 96389-0) [facility] GLUCOSE (AUTOMATED)2022-10-13 16:27:34 Test Item Value Reference Range Interpretation Comments POCT GLU (test code = 6234659337) 167 mg/dL 70-110 H Lab Interpretation (test code = Abnormal 55644-0) [facility] GLUCOSE (AUTOMATED)2022-10-13 12:36:25 Test Item Value Reference Range Interpretation Comments POCT GLU (test code = 5579251075) 169 mg/dL 70-110 H Lab Interpretation (test code = Abnormal 92519-2) [facility] GLUCOSE (AUTOMATED)2022-10-13 01:25:21 Test Item Value Reference Range Interpretation Comments POCT GLU (test code = 8715772212) 142 mg/dL 70-110 H Lab Interpretation (test code = Abnormal 10202-6) [facility] POSITIVE BLOOD PATHOGENS DNA [id number] 21:42:17 Test Item Value Reference Range Interpretation Comments Coagulase Negative Positive Negative, See A Staphylococcus (test Comment/Narrative code = 60147-9) MALIK (test code = MALIK) Coagulase negative [...] contact the Antimicrobial Stewardship Program with questions.Pager: ?[phone] Testing included eleven identification and three resistance marker targets. Lab Interpretation Abnormal (test code = 76984-9) [facility] GLUCOSE (AUTOMATED)2022-10-12 21:24:15 Test Item Value Reference Range Interpretation Comments POCT GLU (test code = 5002131623) 124 mg/dL 70-110 H Lab Interpretation (test code = Abnormal 01910-0) [facility] Packed RBC (in units), 1 Units 2022-10-12 18:29:53 Test Item Value Reference Range Interpretation Comments Cross Match Result Compatible (test code = 4409) ISBT Blood Type Code 6200 (test code = 577903) Unit Blood Type (test A Pos code = 4410) Unit Number (test [id number] code = 4411) Blood Expiration Date & Time (test code = 841768) Status Information Issued (test code = 4412) Product Red Blood Cells Identification (test code = 4413) Product Code (test P2635N30 Performed at [facility] code = 4414) Laboratory Services - [facility] Blood [address] [place] [phone] Free: [phone] A No. [id number] [facility]SE (AUTOMATED)2022-10-12 16:49:16 Test Item Value Reference Range Interpretation Comments POCT GLU (test code = 4252071643) 183 mg/dL 70-110 H Lab Interpretation (test code = Abnormal 02011-0) [facility]lineN-TERMINAL [id number] 14:35:54 Test Item Value Reference Range Interpretation Comments NT-proBNP (test code = 74248 pg/mL <=450 H 1265140433) MALIK (test code = MALIK) Biotin has been reported to cause a negative bias, interpret results relative to patient's use of biotin. Lab Interpretation (test Abnormal code = 40622-2) [facility]lineTROPONIN [id number] 14:31:03 Test Item Value Reference Range Interpretation Comments TROPONIN I (test code = 0.296 ng/mL <=0.034 H 1994606433) MALIK (test code = MALIK) Reference (Normal) [...] biotin. Lab Interpretation Abnormal (test code = 34081-7) [facility] ShorelineLIPID PANEL (47370)(TOTAL CHOLESTEROL, TRIGLYCERIDES, HDL)2022-10-12 14:05:04 Test Item Value Reference Range Interpretation Comments CHOL (test code = 8651261633) 61 mg/dL 120-200 L HDL (test code = 2583516887) 19 mg/dL >=40 L HDLC RATIO (test code = 1666580704) 3.2 <=5.0 TRIG (test code = 0074255223) 82 mg/dL 30-170 LDL CHOL (test code = 70680-7) 26 mg/dL <=160 VLDL (test code = 5691134765) 16 mg/dL 5-60 Lab Interpretation (test code = Abnormal 55779-4) [facility]SE (AUTOMATED)2022-10-12 12:46:09 Test Item Value Reference Range Interpretation Comments POCT GLU (test code = 0386915078) 139 mg/dL 70-110 H Lab Interpretation (test code = Abnormal 76486-6) [facility]lineBASIC METABOLIC PANEL (NA, K, CL, CO2, GLUCOSE, BUN, CREATININE, CA)2022-10-12 11:04:31 Test Item Value Reference Range Interpretation Comments NA (test code = 136 mmol/L 135-145 5627522042) K (test code = 4.9 mmol/L 3.5-5.0 4507676492) CL (test code = 99 mmol/L 98-108 1227139348) CO2 TOTAL (test code = 27 mmol/L 23-31 0269256215) AGAP (test code = 10 2-16 7014255845) BUN (test code = 54 mg/dL 7-23 H 8350735663) GLUCOSE (test code = 136 mg/dL 70-110 H 9530647481) CREATININE (test code = 4.66 mg/dL 0.60-1.25 H 8931211566) CALCIUM (test code = 9.0 mg/dL 8.6-10.6 8120264116) eGFR (test code = 12.3 mL/min/1.73m2 9360167937) MALIK (test code = MALIK) Association of [...] tests). Lab Interpretation Abnormal (test code = 32912-9) [facility]lineMAGNESIUM2023-05-15 11:04:31 Test Item Value Reference Range Interpretation Comments MAGNESIUM (test code = 1859962017) 1.9 mg/dL 1.7-2.4 Lab Interpretation (test code = Normal 28435-1) [facility]linePHOSPHORUS2023-05-15 11:04:11 Test Item Value Reference Range Interpretation Comments PHOSPHORUS (test code = 3049183164) 3.8 mg/dL 2.5-5.0 Lab Interpretation (test code = Normal 99342-9) [facility]lineCB WITH [id number] 10:44:53 Test Item Value Reference Range Interpretation Comments WBC (test code = 5.14 See_Comment [Automated 1390-2) message] The sy stem which generated this [...] RDW-SD (test code = 46.5 fL 38.5-51.6 18039-2) RDW-CV (test code = 14.5 % 12.1-15.4 788-0) PLT (test code = 129 See_Comment L [Automated 777-3) message] The sy stem which generated this result transmitted reference range : 150 - 328 10*3/ ?L. The reference r samantha was not used to interpret this result as normal/abnormal . MPV (test code = 9.7 fL 9.8-13.0 L 24312-1) NRBC/100 WBC (test 0.0 See_Comment [Automat ed code = 0455134846) message] The system which generated this result transmitted reference range : 0.0 - 10.0 /100 WBCs. The refer ence range was not u sed to interpret th is result as normal/abnormal . NRBC x10^3 (test code See_Comment [Auto mated = 0339783732) message] The s ystem which generated this result transmitted reference range : 10*3/?L. The reference range was not used to interpret this result as normal/abnormal . GRAN MAT (NEUT) % 70.2 % (test code = 770-8) IMM GRAN % (test code 0.40 % = 1415314134) LYMPH % (test code = 19.3 % 736-9) MONO % (test code = 7.4 % 5905-5) EOS % (test code = 2.3 % 713-8) BASO % (test code = 0.4 % 706-2) GRAN MAT x10^3(ANC) 3.61 10*3/uL 1.99-6.95 (test code = 0432015335) IMM GRAN x10^3 (test 0.00-0.06 code = 8154618875) LYMPH x10^3 (test code 0.99 10*3/uL 1.09-3.23 L = 731-0) MONO x10^3 (test code 0.38 10*3/uL 0.36-1.02 = 742-7) EOS x10^3 (test code = 0.12 10*3/uL 0.06-0.53 711-2) BASO x10^3 (test code 0.01-0.09 = 704-7) Lab Interpretation Abnormal (test code = 06860-8) [facility] GLUCOSE (AUTOMATED)2022-10-12 06:45:05 Test Item Value Reference Range Interpretation Comments POCT GLU (test code = 9149303915) 189 mg/dL 70-110 H Lab Interpretation (test code = Abnormal 72246-6) [facility] GLUCOSE (AUTOMATED)2022-10-12 01:24:37 Test Item Value Reference Range Interpretation Comments POCT GLU (test code = 9068885998) 145 mg/dL 70-110 H Lab Interpretation (test code = Abnormal 52718-2) [facility] GLUCOSE (AUTOMATED)2022-10-11 21:34:09 Test Item Value Reference Range Interpretation Comments POCT GLU (test code = 9327002355) 140 mg/dL 70-110 H Lab Interpretation (test code = Abnormal 64227-8) [facility] GLUCOSE (AUTOMATED)2022-10-11 17:09:13 Test Item Value Reference Range Interpretation Comments POCT GLU (test code = 1545553308) 174 mg/dL 70-110 H Lab Interpretation (test code = Abnormal 37247-2) [facility] GLUCOSE (AUTOMATED)2022-10-11 16:19:41 Test Item Value Reference Range Interpretation Comments POCT GLU (test code = 8188360360) 170 mg/dL 70-110 H Lab Interpretation (test code = Abnormal 20441-6) [facility])2022-10-11 14:32:59 Test Item Value Reference Range Interpretation Comments POCT GLU (test code = 6244782915) 151 mg/dL 70-110 H Lab Interpretation (test code = Abnormal 91499-3) [facility] GLUCOSE (AUTOMATED)2022-10-11 13:15:13 Test Item Value Reference Range Interpretation Comments POCT GLU (test code = 4826301497) 108 mg/dL 70-110 Lab Interpretation (test code = Normal 91020-9) [facility] GLUCOSE (AUTOMATED)2022-10-11 12:14:37 Test Item Value Reference Range Interpretation Comments POCT GLU (test code = 3247255164) 106 mg/dL 70-110 Lab Interpretation (test code = Normal 57991-3) [facility] GLUCOSE (AUTOMATED)2022-10-11 11:28:53 Test Item Value Reference Range Interpretation Comments POCT GLU (test code = 1096018693) 121 mg/dL 70-110 H Lab Interpretation (test code = Abnormal 17115-5) [facility] GLUCOSE (AUTOMATED)2022-10-11 09:43:44 Test Item Value Reference Range Interpretation Comments POCT GLU (test code = 7106567177) 129 mg/dL 70-110 H Lab Interpretation (test code = Abnormal 26395-4) [facility] GLUCOSE (AUTOMATED)2022-10-11 08:46:38 Test Item Value Reference Range Interpretation Comments POCT GLU (test code = 5441375876) 101 mg/dL 70-110 Lab Interpretation (test code = Normal 30534-8) [facility]2022-10-11 07:38:35 Test Item Value Reference Range Interpretation Comments POCT GLU (test code = 6915113506) 102 mg/dL 70-110 Lab Interpretation (test code = Normal 16691-5) [facility]2022-10-11 06:20:36 Test Item Value Reference Range Interpretation Comments POCT GLU (test code = 8156952008) 112 mg/dL 70-110 H Lab Interpretation (test code = Abnormal 02182-0) [facility] 05:53:46 Test Item Value Reference Range Interpretation Comments POCT GLU (test code = 8807215353) 118 mg/dL 70-110 H Lab Interpretation (test code = Abnormal 34118-2) [facility] GLUCOSE (AUTOMATED)2022-10-11 04:25:32 Test Item Value Reference Range Interpretation Comments POCT GLU (test code = 0100559400) 127 mg/dL 70-110 H Lab Interpretation (test code = Abnormal 63109-5) [facility] GLUCOSE (AUTOMATED)2022-10-11 03:35:04 Test Item Value Reference Range Interpretation Comments POCT GLU (test code = 7283455504) 132 mg/dL 70-110 H Lab Interpretation (test code = Abnormal 15156-8) [facility] GLUCOSE (AUTOMATED)2022-10-11 02:10:18 Test Item Value Reference Range Interpretation Comments POCT GLU (test code = 8001919505) 155 mg/dL 70-110 H Lab Interpretation (test code = Abnormal 86355-4) [facility]lineGLYCOSYLATED HEMOGLOBIN (A1C)2022-10-11 01:39:22 Test Item Value Reference Range Interpretation Comments HGB A1C (test code = 7.2 % 4.0-5.7 H 4548-4) MALIK (test code = MALIK) Reference RangesNormal: <5.7%Prediabetes: 5.7 - 6.4%Diabetes: > 6.5% Lab Interpretation (test Abnormal code = 01000-3) [facility] GLUCOSE (AUTOMATED)2022-10-11 01:10:41 Test Item Value Reference Range Interpretation Comments POCT GLU (test code = 7789421658) 156 mg/dL 70-110 H Lab Interpretation (test code = Abnormal 23827-9) [facility] GLUCOSE (AUTOMATED)2022-10-10 23:31:02 Test Item Value Reference Range Interpretation Comments POCT GLU (test code = 9778649956) 144 mg/dL 70-110 H Lab Interpretation (test code = Abnormal 42851-6) [facility] GLUCOSE (AUTOMATED)2022-10-10 21:44:27 Test Item Value Reference Range Interpretation Comments POCT GLU (test code = 5293038251) 138 mg/dL 70-110 H Lab Interpretation (test code = Abnormal 73188-5) [facility]2022-10-10 21:27:07 Test Item Value Reference Range Interpretation Comments POCT GLU (test code = 6285238178) 150 mg/dL 70-110 H Lab Interpretation (test code = Abnormal 31713-1) [facility] PANEL 21 + LACTIC [id number] 21:01:36 Test Item Value Reference Range Interpretation Comments PH (test code = 7.31 7.32-7.42 L 0650769028) PCO2 LORENA (test code = 55 See_Comment H [Auto mated 1947498934) message] The sy stem which generated this result transmitted reference range : 41 - 51 mmHg. The reference range was not used to interpret this result as normal/abnormal . PO2 LORENA (test code = 16 See_Comment L [Autom ated 2298839926) message] The sy stem which generated this result transmitted reference range : 25 - 40 mmHg. The reference range was not used to interpret this result as normal/abnormal . HCO3 LORENA (test code = 27 See_Comment [Auto mated 3551518367) message] The sy stem which generated this result transmitted reference range : 24 - 28 mEq/L. The reference range was not used to interpret this result as normal/abnormal . AC VBE(BEAKER) (test 0.6 mEq/L code = 1911898853) THB LORENA (test code = 8.2 g/dL 13.5-18.0 LL 7976084294) %O2HB LORENA (test code = 22.2 % 52.0-63.0 L 3627402309) %COHB LORENA (test code = 0.1 % 0.0-1.5 2381099697) %METHB LORENA (test code = 1.5 % 0.4-1.5 2452230859) VOL%O2 LORENA (test code = 2.6 % 6.0-12.0 L 5592107124) NA (test code = 132 mmol/L 135-145 L 6838825581) K+ (test code = 4.7 mmol/L 3.5-5.0 9415260698) AC CA IONZ (test code = 5.10 mg/dL 4.50-5.30 3807045794) GLUCOSE (test code = 153 mg/dL 70-110 H 0934047460) LACTIC ACID (test code 1.54 mmol/L 0.50-2.20 = 9988998207) Lab Interpretation Abnormal (test code = 34451-4) [facility]2022-10-10 20:33:33 Test Item Value Reference Range Interpretation Comments POCT GLU (test code = 5246852247) 137 mg/dL 70-110 H Lab Interpretation (test code = Abnormal 08935-5) [facility]lineN-TERMINAL [id number] 20:24:02 Test Item Value Reference Range Interpretation Comments NT-proBNP (test code = 96394 pg/mL <=450 H 6301293945) MALIK (test code = MALIK) Biotin has been reported to cause a negative bias, interpret results relative to patient's use of biotin. Lab Interpretation (test Abnormal code = 66131-8) [facility]lineCOM. METABOLIC PANEL (13725)2022-10-10 20:18:35 Test Item Value Reference Range Interpretation Comments NA (test code = 136 mmol/L 135-145 4863372991) K (test code = 4.8 mmol/L 3.5-5.0 4518890192) CL (test code = 94 mmol/L 98-108 L 0470415797) CO2 TOTAL (test code = 33 mmol/L 23-31 H 4496932896) AGAP (test code = 9 2-16 4580611210) BUN (test code = 34 mg/dL 7-23 H 8167122458) GLUCOSE (test code = 62 mg/dL 70-110 L 6223582282) CREATININE (test code = 3.14 mg/dL 0.60-1.25 H 9770930668) TOTAL BILI (test code = 0.9 mg/dL 0.1-1.0 1105551913) CALCIUM (test code = 9.4 mg/dL 8.6-10.6 4473094072) T PROTEIN (test code = 6.6 g/dL 6.3-8.2 9921990250) ALBUMIN (test code = 3.6 g/dL 3.5-5.0 1474114591) ALK PHOS (test code = 334 U/L 34-122 H 1805686376) ALTv (test code = 38 U/L 5-50 1742-6) AST(SGOT) (test code = 38 U/L -40 7964928627) eGFR (test code = 19.3 mL/min/1.73m2 7812290972) MALIK (test code = MALIK) Association of [...] tests). Lab Interpretation Abnormal (test code = 94135-5) [facility]2022-10-10 19:48:15 Test Item Value Reference Range Interpretation Comments POCT GLU (test code = 4325314744) 50 mg/dL 70-110 LL Lab Interpretation (test code = Abnormal 52373-1) [facility]lineTROP[facility]IN [id number] 19:44:14 Test Item Value Reference Range Interpretation Comments TROPONIN I (test code = 0.060 ng/mL <=0.034 H 9523288087) MALIK (test code = MALIK) Reference (Normal) [...] biotin. Lab Interpretation Abnormal (test code = 30400-2) [facility] acute hospital WITH [id number] 19:23:50 Test Item Value Reference Range Interpretation Comments WBC (test code = 7.51 See_Comment [Automated 5990-2) message] The sy stem which generated this result transmitted reference range : 4.20 - 10.70 10*3/?L. The reference range was not used to interpret this result as normal/abnormal . RBC (test code = 2.71 See_Comment L [Automated 839-8) message] The sy stem which generated this [...] RDW-SD (test code = 46.5 fL 38.5-51.6 14992-0) RDW-CV (test code = 14.4 % 12.1-15.4 788-0) PLT (test code = 131 See_Comment L [Automated 777-3) message] The sy stem which generated this result transmitted reference range : 150 - 328 10*3/ ?L. The reference r samantha was not used to interpret this result as normal/abnormal . MPV (test code = 9.2 fL 9.8-13.0 L 00131-7) NRBC/100 WBC (test 0.0 See_Comment [Automat ed code = 1863898527) message] The system which generated this result transmitted reference range : 0.0 - 10.0 /100 WBCs. The refer ence range was not u sed to interpret th is result as normal/abnormal . NRBC x10^3 (test code See_Comment [Auto mated = 4555853111) message] The s ystem which generated this result transmitted reference range : 10*3/?L. The reference range was not used to interpret this result as normal/abnormal . GRAN MAT (NEUT) % 80.2 % (test code = 770-8) IMM GRAN % (test code 0.50 % = 3381876382) LYMPH % (test code = 9.6 % 736-9) MONO % (test code = 8.8 % 5905-5) EOS % (test code = 0.4 % 713-8) BASO % (test code = 0.5 % 706-2) GRAN MAT x10^3(ANC) 6.02 10*3/uL 1.99-6.95 (test code = 8116677237) IMM GRAN x10^3 (test 0.04 10*3/uL 0.00-0.06 code = 6979400772) LYMPH x10^3 (test code 0.72 10*3/uL 1.09-3.23 L = 731-0) MONO x10^3 (test code 0.66 10*3/uL 0.36-1.02 = 742-7) EOS x10^3 (test code = 0.03 10*3/uL 0.06-0.53 L 711-2) BASO x10^3 (test code 0.04 10*3/uL 0.01-0.09 = 704-7) Lab Interpretation Abnormal (test code = 61612-4) [facility]2022-10-10 18:59:49 Test Item Value Reference Range Interpretation Comments POCT GLU (test code = 7154418919) 80 mg/dL 70-110 Lab Interpretation (test code = Normal 36826-8) [facility] [id number] 18:35:00 Test Item Value Reference Range Interpretation Comments Antibody Scrn (test Negative (01/02/22 1:35 code = Antibody Scrn) PM) [facility] [id number] 18:35:00 Test Item Value Reference Range Interpretation Comments ABO/Rh (test code = ABO/Rh) AB POS [facility] [id number] 18:35:00 Test Item Value Reference Range Interpretation Comments Antibody Scrn (test Negative (01/02/22 1:35 code = Antibody Scrn) PM) [facility] [id number] 18:35:00 Test Item Value Reference Range Interpretation Comments ABO/Rh (test code = ABO/Rh) AB POS [facility] [id number] 18:35:00 Test Item Value Reference Range Interpretation Comments Antibody Scrn (test Negative (01/02/22 1:35 code = Antibody Scrn) PM) [facility] [employer] [id number] 18:35:00 Test Item Value Reference Range Interpretation Comments ABO/Rh (test code = ABO/Rh) AB POS [facility] [id number] 18:35:00 Test Item Value Reference Range Interpretation Comments Antibody Scrn (test Negative (01/02/22 1:35 code = Antibody Scrn) PM) [facility] [id number] 18:35:00 Test Item Value Reference Range Interpretation Comments ABO/Rh (test code = ABO/Rh) AB POS [facility] [employer]ARD[employer] [id number] 18:13:00 Test Item Value Reference Range Interpretation Comments HS Troponin I (test code = HS Troponin 156 I) [facility] [employer] [id number] 18:13:00 Test Item Value Reference Range Interpretation Comments Glucose Lvl (test code = Glucose Lvl) 237 70-99 [facility] [employer] [id number] 18:13:00 Test Item Value Reference Range Interpretation Comments BUN (test code = BUN) 46 7-22 [facility] [employer] [id number] 18:13:00 Test Item Value Reference Range Interpretation Comments Creatinine Lvl (test code = Creatinine 5.92 0.50-1.40 Lvl) [place] 491452-08-05 18:13:00 Test Item Value Reference Range Interpretation Comments Sodium Lvl (test code = Sodium Lvl) 134 135-145 [place] [address]-08-05 18:13:00 Test Item Value Reference Range Interpretation Comments Potassium Lvl (test code = Potassium 4.4 3.5-5.1 Lvl) [address]08-05 18:13:00 Test Item Value Reference Range Interpretation Comments Chloride Lvl (test code = Chloride Lvl) 98 95-109 [place] [address]-08-05 18:13:00 Test Item Value Reference Range Interpretation Comments CO2 (test code = CO2) 29 24-32 [address]08-05 18:13:00 Test Item Value Reference Range Interpretation Comments Calcium Lvl (test code = Calcium Lvl) 9.2 8.5-10.5 [place] [address]-08-05 18:13:00 Test Item Value Reference Range Interpretation Comments Total Protein (test code = Total 6.6 6.4-8.4 Protein) [address]08-05 18:13:00 Test Item Value Reference Range Interpretation Comments Albumin Lvl (test code = Albumin Lvl) 3.1 3.5-5.0 [address]08-05 18:13:00 Test Item Value Reference Range Interpretation Comments ALT (test code = ALT) 36 See_Comment [Auto mated message] The system which ge nerated this result transmit swathi reference range : <=65. The reference range was not used to interpr et this result as deny l/abnormal. [address]08-05 18:13:00 Test Item Value Reference Range Interpretation Comments AST (test code = AST) 28 See_Comment [Auto mated message] The system which ge nerated this result transmit swathi reference range : <=37. The reference range was not used to interpr et this result as deny l/abnormal. [place] [address]-08-05 18:13:00 Test Item Value Reference Range Interpretation Comments Alk Phos (test code = Alk Phos) 231 39-136 [place] [address]-08-05 18:13:00 Test Item Value Reference Range Interpretation Comments Bili Total (test code = Bili Total) 1.0 0.2-1.3 [place] [address]-08-05 18:13:00 Test Item Value Reference Range Interpretation Comments AGAP (test code = AGAP) 11.4 10.0-20.0 [place] 491452-08-05 18:13:00 Test Item Value Reference Range Interpretation Comments B/C Ratio (test code = B/C Ratio) 8 1 6-25 [place] [address]-08-05 18:13:00 Test Item Value Reference Range Interpretation Comments Globulin (test code = Globulin) 3.5 2.7-4.2 [place] [address]-08-05 18:13:00 Test Item Value Reference Range Interpretation Comments A/G Ratio (test code = A/G Ratio) 0.9 1 0.7-1.6 [place] [address]-08-05 18:13:00 Test Item Value Reference Range Interpretation Comments eGFR (test code = eGFR) 9 [place] 841442-08-05 18:13:00 Test Item Value Reference Range Interpretation Comments WBC (test code = WBC) 4.8 3.7-10.4 [place] [address]-08-05 18:13:00 Test Item Value Reference Range Interpretation Comments RBC (test code = RBC) 1.93 4.70-6.10 [place] [address]-08-05 18:13:00 Test Item Value Reference Range Interpretation Comments Hgb (test code = Hgb) 7.2 14.0-18.0 [place] 841442-08-05 18:13:00 Test Item Value Reference Range Interpretation Comments Hct (test code = Hct) 21.2 42.0-54.0 [place] [address]-08-05 18:13:00 Test Item Value Reference Range Interpretation Comments MCV (test code = MCV) 110.1 80.0-94.0 [place] [address]-08-05 18:13:00 Test Item Value Reference Range Interpretation Comments MCH (test code = MCH) 37.1 pg 27.0-31.0 [place] [address]-08-05 18:13:00 Test Item Value Reference Range Interpretation Comments MCHC (test code = MCHC) 33.7 32.0-36.0 [place] [address]-08-05 18:13:00 Test Item Value Reference Range Interpretation Comments RDW (test code = RDW) 25.8 11.5-14.5 [place] [address]-08-05 18:13:00 Test Item Value Reference Range Interpretation Comments Platelet (test code = Platelet) 216 133-450 [place] 841442-08-05 18:13:00 Test Item Value Reference Range Interpretation Comments MPV (test code = MPV) 8.2 7.4-10.4 [place] [address]-08-05 18:13:00 Test Item Value Reference Range Interpretation Comments PT (test code = PT) 16.9 s 12.0-14.7 [place] [address]-08-05 18:13:00 Test Item Value Reference Range Interpretation Comments INR (test code = INR) 1.39 1 0.85-1.17 [place] [address]-08-05 18:13:00 Test Item Value Reference Range Interpretation Comments PTT (test code = PTT) 35.0 s 22.9-35.8 [place] [address]-08-05 18:13:00 Test Item Value Reference Range Interpretation Comments Plt Morph (test code = Normal (01/02/22 1:13 PM) Plt Morph) [place] [address]-08-05 18:13:00 Test Item Value Reference Range Interpretation Comments Segs (test code = Segs) 76.4 45.0-75.0 [place] [address]-08-05 18:13:00 Test Item Value Reference Range Interpretation Comments Lymphocytes (test code = Lymphocytes) 14.6 20.0-40.0 [place] [address]-08-05 18:13:00 Test Item Value Reference Range Interpretation Comments Monocytes (test code = Monocytes) 7.5 2.0-12.0 [place] [address]-08-05 18:13:00 Test Item Value Reference Range Interpretation Comments Eosinophils (test code = 0.6 See_Comment [A utomated message] The Eosinophils) system which ge nerated this result tra nsmitted reference range : <=4.0. The reference r samantha was not used to int erpret this result as normal/abnormal . [place] 841442-08-05 18:13:00 Test Item Value Reference Range Interpretation Comments Basophils (test code = 0.9 See_Comment [Aut omated message] The Basophils) system which ge nerated this result tra nsmitted reference range : <=1.0. The reference r samantha was not used to int erpret this result as normal/abnormal . [place] 841442-08-05 18:13:00 Test Item Value Reference Range Interpretation Comments Neutrophils # (test code = Neutrophils 3.7 1.5-8.1 #) [facility]ubuNNKWQCEIDZ6424-72-85 18:13:00 Test Item Value Reference Range Interpretation Comments Lymphocytes # (test code = Lymphocytes 0.7 1.0-5.5 #) [facility] HospitalKhukpazXFAMBANBXV3889-80-01 18:13:00 Test Item Value Reference Range Interpretation Comments Monocytes # (test code 0.4 See_Comment [Aut omated message] The = Monocytes #) system which generated this result tra nsmitted reference range : <=0.8. The reference r samantha was not used to int erpret this result as normal/abnormal . [facility] HospitalZdbajesHROQKDMWAY2418-45-80 18:13:00 Test Item Value Reference Range Interpretation Comments Anisocyte (test code = 2+ *ABN*(01/02/22 1:13 Anisocyte) PM) [place] 841442-08-05 18:13:00 Test Item Value Reference Range Interpretation Comments Macrocyte (test code = 2+ *ABN*(01/02/22 1:13 Macrocyte) PM) [facility] [id number] 18:13:00 Test Item Value Reference Range Interpretation Comments HS Troponin I (test code = HS Troponin 156 I) [facility]2022-08-05 18:13:00 Test Item Value Reference Range Interpretation Comments Glucose Lvl (test code = Glucose Lvl) 237 70-99 [facility]2022-08-05 18:13:00 Test Item Value Reference Range Interpretation Comments BUN (test code = BUN) 46 7-22 [place] 491452-08-05 18:13:00 Test Item Value Reference Range Interpretation Comments Creatinine Lvl (test code = Creatinine 5.92 0.50-1.40 Lvl) [facility]2022-08-05 18:13:00 Test Item Value Reference Range Interpretation Comments Sodium Lvl (test code = Sodium Lvl) 134 135-145 [facility] [id number] 18:13:00 Test Item Value Reference Range Interpretation Comments Potassium Lvl (test code = Potassium 4.4 3.5-5.1 Lvl) [facility]2022-08-05 18:13:00 Test Item Value Reference Range Interpretation Comments Chloride Lvl (test code = Chloride Lvl) 98 95-109 [facility] [id number] 18:13:00 Test Item Value Reference Range Interpretation Comments HS Troponin I (test code = HS Troponin 156 I) [facility] [id number] 18:13:00 Test Item Value Reference Range Interpretation Comments Glucose Lvl (test code = Glucose Lvl) 237 70-99 [facility]2022-08-05 18:13:00 Test Item Value Reference Range Interpretation Comments BUN (test code = BUN) 46 7-22 [facility]2022-08-05 18:13:00 Test Item Value Reference Range Interpretation Comments Creatinine Lvl (test code = Creatinine 5.92 0.50-1.40 Lvl) [facility]2022-08-05 18:13:00 Test Item Value Reference Range Interpretation Comments Sodium Lvl (test code = Sodium Lvl) 134 135-145 [facility]2022-08-05 18:13:00 Test Item Value Reference Range Interpretation Comments Potassium Lvl (test code = Potassium 4.4 3.5-5.1 Lvl) [facility]2022-08-05 18:13:00 Test Item Value Reference Range Interpretation Comments Chloride Lvl (test code = Chloride Lvl) 98 95-109 [facility]2022-08-05 18:13:00 Test Item Value Reference Range Interpretation Comments CO2 (test code = CO2) 29 24-32 [facility]2022-08-05 18:13:00 Test Item Value Reference Range Interpretation Comments Calcium Lvl (test code = Calcium Lvl) 9.2 8.5-10.5 [facility] HospitalTask [facility] Inc[facility] [id number] 18:13:00 Test Item Value Reference Range Interpretation Comments Total Protein (test code = Total 6.6 6.4-8.4 Protein) [facility]2022-08-05 18:13:00 Test Item Value Reference Range Interpretation Comments CO2 (test code = CO2) 29 24-32 [facility] [employer] [id number] 18:13:00 Test Item Value Reference Range Interpretation Comments Albumin Lvl (test code = Albumin Lvl) 3.1 3.5-5.0 [facility] [employer] [id number] 18:13:00 Test Item Value Reference Range Interpretation Comments ALT (test code = ALT) 36 See_Comment [Auto mated message] The system which ge nerated this result transmit swathi reference range : <=65. The reference range was not used to interpr et this result as deny l/abnormal. [facility] [employer] [id number] 18:13:00 Test Item Value Reference Range Interpretation Comments AST (test code = AST) 28 See_Comment [Auto mated message] The system which ge nerated this result transmit swathi reference range : <=37. The reference range was not used to interpr et this result as deny l/abnormal. [facility] [employer] [id number] 18:13:00 Test Item Value Reference Range Interpretation Comments Alk Phos (test code = Alk Phos) 231 39-136 [facility] [employer] [id number] 18:13:00 Test Item Value Reference Range Interpretation Comments Bili Total (test code = Bili Total) 1.0 0.2-1.3 [facility] [employer] [id number] 18:13:00 Test Item Value Reference Range Interpretation Comments AGAP (test code = AGAP) 11.4 10.0-20.0 [facility] [employer] [id number] 18:13:00 Test Item Value Reference Range Interpretation Comments B/C Ratio (test code = B/C Ratio) 8 1 6-25 [facility] [employer] [id number] 18:13:00 Test Item Value Reference Range Interpretation Comments Globulin (test code = Globulin) 3.5 2.7-4.2 [facility] [employer] [id number] 18:13:00 Test Item Value Reference Range Interpretation Comments A/G Ratio (test code = A/G Ratio) 0.9 1 0.7-1.6 [facility] [employer] [id number] 18:13:00 Test Item Value Reference Range Interpretation Comments eGFR (test code = eGFR) 9 [facility] [id number] 18:13:00 Test Item Value Reference Range Interpretation Comments Calcium Lvl (test code = Calcium Lvl) 9.2 8.5-10.5 [facility] HospitalRcpmvxlPTLXERGPDC7856-63-64 18:13:00 Test Item Value Reference Range Interpretation Comments WBC (test code = WBC) 4.8 3.7-10.4 [facility] HospitalVhvzrczPZFRBUHWPL3465-88-12 18:13:00 Test Item Value Reference Range Interpretation Comments RBC (test code = RBC) 1.93 4.70-6.10 [facility] HospitalLlgreaeYLZCKKEQBQ4061-15-02 18:13:00 Test Item Value Reference Range Interpretation Comments Hgb (test code = Hgb) 7.2 14.0-18.0 [facility] HospitalLvmvlrtHUTLOSESSI9027-25-35 18:13:00 Test Item Value Reference Range Interpretation Comments Hct (test code = Hct) 21.2 42.0-54.0 [facility] HospitalKjyaajeEXFMOCNCHR5243-66-05 18:13:00 Test Item Value Reference Range Interpretation Comments MCV (test code = MCV) 110.1 80.0-94.0 [facility] HospitalDicrjhbITCFWOIWWA3498-51-15 18:13:00 Test Item Value Reference Range Interpretation Comments MCH (test code = MCH) 37.1 pg 27.0-31.0 [facility] Hos[id number] 18:13:00 Test Item Value Reference Range Interpretation Comments MCHC (test code = MCHC) 33.7 32.0-36.0 [facility] HospitalShjexqlZPRGPZSZWA8944-48-02 18:13:00 Test Item Value Reference Range Interpretation Comments RDW (test code = RDW) 25.8 11.5-14.5 [facility] HospitalIyaiqkaCACPSJFQKM6897-33-34 18:13:00 Test Item Value Reference Range Interpretation Comments Platelet (test code = Platelet) 216 133-450 [facility] HospitalVdorntrOFXNYMMBTM8038-78-08 18:13:00 Test Item Value Reference Range Interpretation Comments MPV (test code = MPV) 8.2 7.4-10.4 [facility]2022-08-05 18:13:00 Test Item Value Reference Range Interpretation Comments Total Protein (test code = Total 6.6 6.4-8.4 Protein) [facility] HospitalInohghjXFVHRDEJYV7195-16-16 18:13:00 Test Item Value Reference Range Interpretation Comments PT (test code = PT) 16.9 s 12.0-14.7 [place] [address]-08-05 18:13:00 Test Item Value Reference Range Interpretation Comments INR (test code = INR) 1.39 1 0.85-1.17 [facility] HospitalEdhyyjmUGGDIAXNXK0014-42-35 18:13:00 Test Item Value Reference Range Interpretation Comments PTT (test code = PTT) 35.0 s 22.9-35.8 [place] 841442-08-05 18:13:00 Test Item Value Reference Range Interpretation Comments Plt Morph (test code = Normal (01/02/22 1:13 PM) Plt Morph) [place] 841442-08-05 18:13:00 Test Item Value Reference Range Interpretation Comments Segs (test code = Segs) 76.4 45.0-75.0 [place] 841442-08-05 18:13:00 Test Item Value Reference Range Interpretation Comments Lymphocytes (test code = Lymphocytes) 14.6 20.0-40.0 [place] 841442-08-05 18:13:00 Test Item Value Reference Range Interpretation Comments Monocytes (test code = Monocytes) 7.5 2.0-12.0 [place] 841442-08-05 18:13:00 Test Item Value Reference Range Interpretation Comments Eosinophils (test code = 0.6 See_Comment [A utomated message] The Eosinophils) system which ge nerated this result tra nsmitted reference range : <=4.0. The reference r samantha was not used to int erpret this result as normal/abnormal . [facility] HospitalYyyiqawBAKYJQBRRU0407-80-81 18:13:00 Test Item Value Reference Range Interpretation Comments Basophils (test code = 0.9 See_Comment [Aut omated message] The Basophils) system which ge nerated this result tra nsmitted reference range : <=1.0. The reference r samantha was not used to int erpret this result as normal/abnormal . [place] 841442-08-05 18:13:00 Test Item Value Reference Range Interpretation Comments Neutrophils # (test code = Neutrophils 3.7 1.5-8.1 #) [facility]2022-08-05 18:13:00 Test Item Value Reference Range Interpretation Comments Albumin Lvl (test code = Albumin Lvl) 3.1 3.5-5.0 [place] [address]-08-05 18:13:00 Test Item Value Reference Range Interpretation Comments Lymphocytes # (test code = Lymphocytes 0.7 1.0-5.5 #) [place] [address]-08-05 18:13:00 Test Item Value Reference Range Interpretation Comments Monocytes # (test code 0.4 See_Comment [Aut omated message] The = Monocytes #) system which generated this result tra nsmitted reference range : <=0.8. The reference r samantha was not used to int erpret this result as normal/abnormal . [place] [address]-08-05 18:13:00 Test Item Value Reference Range Interpretation Comments Anisocyte (test code = 2+ *ABN*(01/02/22 1:13 Anisocyte) PM) [address]08-05 18:13:00 Test Item Value Reference Range Interpretation Comments Macrocyte (test code = 2+ *ABN*(01/02/22 1:13 Macrocyte) PM) [place] [address]-08-05 18:13:00 Test Item Value Reference Range Interpretation Comments ALT (test code = ALT) 36 See_Comment [Auto mated message] The system which ge nerated this result transmit swathi reference range : <=65. The reference range was not used to interpr et this result as deny l/abnormal. [place] [address]-08-05 18:13:00 Test Item Value Reference Range Interpretation Comments AST (test code = AST) 28 See_Comment [Auto mated message] The system which ge nerated this result transmit swathi reference range : <=37. The reference range was not used to interpr et this result as deny l/abnormal. [place] [address]-08-05 18:13:00 Test Item Value Reference Range Interpretation Comments Alk Phos (test code = Alk Phos) 231 39-136 [place] [address]-08-05 18:13:00 Test Item Value Reference Range Interpretation Comments Bili Total (test code = Bili Total) 1.0 0.2-1.3 [facility] HospitalTask [facility] Inc[employer] [id number] 18:13:00 Test Item Value Reference Range Interpretation Comments AGAP (test code = AGAP) 11.4 10.0-20.0 [place] 491452-08-05 18:13:00 Test Item Value Reference Range Interpretation Comments B/C Ratio (test code = B/C Ratio) 8 1 6-25 [place] [address]-08-05 18:13:00 Test Item Value Reference Range Interpretation Comments Globulin (test code = Globulin) 3.5 2.7-4.2 [place] 491452-08-05 18:13:00 Test Item Value Reference Range Interpretation Comments A/G Ratio (test code = A/G Ratio) 0.9 1 0.7-1.6 [place] [address]-08-05 18:13:00 Test Item Value Reference Range Interpretation Comments eGFR (test code = eGFR) 9 [place] 841442-08-05 18:13:00 Test Item Value Reference Range Interpretation Comments WBC (test code = WBC) 4.8 3.7-10.4 [place] 841442-08-05 18:13:00 Test Item Value Reference Range Interpretation Comments RBC (test code = RBC) 1.93 4.70-6.10 [place] [address]-08-05 18:13:00 Test Item Value Reference Range Interpretation Comments Hgb (test code = Hgb) 7.2 14.0-18.0 [place] [address]-08-05 18:13:00 Test Item Value Reference Range Interpretation Comments Hct (test code = Hct) 21.2 42.0-54.0 [place] [address]-08-05 18:13:00 Test Item Value Reference Range Interpretation Comments MCV (test code = MCV) 110.1 80.0-94.0 [place] [address]-08-05 18:13:00 Test Item Value Reference Range Interpretation Comments MCH (test code = MCH) 37.1 pg 27.0-31.0 [place] [address]-08-05 18:13:00 Test Item Value Reference Range Interpretation Comments MCHC (test code = MCHC) 33.7 32.0-36.0 [place] [address]-08-05 18:13:00 Test Item Value Reference Range Interpretation Comments RDW (test code = RDW) 25.8 11.5-14.5 [place] [address]-08-05 18:13:00 Test Item Value Reference Range Interpretation Comments Platelet (test code = Platelet) 216 133-450 [place] 841442-08-05 18:13:00 Test Item Value Reference Range Interpretation Comments MPV (test code = MPV) 8.2 7.4-10.4 [place] [address]-08-05 18:13:00 Test Item Value Reference Range Interpretation Comments PT (test code = PT) 16.9 s 12.0-14.7 [place] [address]-08-05 18:13:00 Test Item Value Reference Range Interpretation Comments INR (test code = INR) 1.39 1 0.85-1.17 [place] [address]-08-05 18:13:00 Test Item Value Reference Range Interpretation Comments PTT (test code = PTT) 35.0 s 22.9-35.8 [place] [address]-08-05 18:13:00 Test Item Value Reference Range Interpretation Comments Plt Morph (test code = Normal (01/02/22 1:13 PM) Plt Morph) [facility] HospitalDffnckxJVQICZNHUE1457-96-03 18:13:00 Test Item Value Reference Range Interpretation Comments Segs (test code = Segs) 76.4 45.0-75.0 [place] [address]-08-05 18:13:00 Test Item Value Reference Range Interpretation Comments Lymphocytes (test code = Lymphocytes) 14.6 20.0-40.0 [place] [address]-08-05 18:13:00 Test Item Value Reference Range Interpretation Comments Monocytes (test code = Monocytes) 7.5 2.0-12.0 [place] [address]-08-05 18:13:00 Test Item Value Reference Range Interpretation Comments Eosinophils (test code = 0.6 See_Comment [A utomated message] The Eosinophils) system which ge nerated this result tra nsmitted reference range : <=4.0. The reference r samantha was not used to int erpret this result as normal/abnormal . [place] [address]-08-05 18:13:00 Test Item Value Reference Range Interpretation Comments Basophils (test code = 0.9 See_Comment [Aut omated message] The Basophils) system which ge nerated this result tra nsmitted reference range : <=1.0. The reference r samantha was not used to int erpret this result as normal/abnormal . [facility] HospitalWrfpavtRAVDDGTOTL2042-66-48 18:13:00 Test Item Value Reference Range Interpretation Comments Neutrophils # (test code = Neutrophils 3.7 1.5-8.1 #) [facility] HospitalOkiguugFCXNGBTAXL2733-90-04 18:13:00 Test Item Value Reference Range Interpretation Comments Lymphocytes # (test code = Lymphocytes 0.7 1.0-5.5 #) [facility] HospitalKjdjjueSRLTEFEBXY1411-30-72 18:13:00 Test Item Value Reference Range Interpretation Comments Monocytes # (test code 0.4 See_Comment [Aut omated message] The = Monocytes #) system which generated this result tra nsmitted reference range : <=0.8. The reference r samantha was not used to int erpret this result as normal/abnormal . [facility] HospitalEcrvgfuEFNGXICRDB2641-75-33 18:13:00 Test Item Value Reference Range Interpretation Comments Anisocyte (test code = 2+ *ABN*(01/02/22 1:13 Anisocyte) PM) [facility] HospitalReppoouBKKEXZKQFR8106-75-63 18:13:00 Test Item Value Reference Range Interpretation Comments Macrocyte (test code = 2+ *ABN*(01/02/22 1:13 Macrocyte) PM) [facility] USTXPTY7719-98-26 18:13:00 Test Item Value Reference Range Interpretation Comments HS Troponin I (test code = HS Troponin 156 I) [facility] HospitalTask [facility] [id number] 18:13:00 Test Item Value Reference Range Interpretation Comments Glucose Lvl (test code = Glucose Lvl) 237 70-99 [facility] Hospital[facility] [id number] 18:13:00 Test Item Value Reference Range Interpretation Comments BUN (test code = BUN) 46 7-22 [facility] [id number] 18:13:00 Test Item Value Reference Range Interpretation Comments Creatinine Lvl (test code = Creatinine 5.92 0.50-1.40 Lvl) [facility]2022-08-05 18:13:00 Test Item Value Reference Range Interpretation Comments Sodium Lvl (test code = Sodium Lvl) 134 135-145 [facility] [id number] 18:13:00 Test Item Value Reference Range Interpretation Comments Potassium Lvl (test code = Potassium 4.4 3.5-5.1 Lvl) [address]08-05 18:13:00 Test Item Value Reference Range Interpretation Comments Chloride Lvl (test code = Chloride Lvl) 98 95-109 [address]08-05 18:13:00 Test Item Value Reference Range Interpretation Comments CO2 (test code = CO2) 29 24-32 [address]08-05 18:13:00 Test Item Value Reference Range Interpretation Comments Calcium Lvl (test code = Calcium Lvl) 9.2 8.5-10.5 [facility] [id number] 18:13:00 Test Item Value Reference Range Interpretation Comments Total Protein (test code = Total 6.6 6.4-8.4 Protein) [address]08-05 18:13:00 Test Item Value Reference Range Interpretation Comments Albumin Lvl (test code = Albumin Lvl) 3.1 3.5-5.0 [facility] [id number] 18:13:00 Test Item Value Reference Range Interpretation Comments ALT (test code = ALT) 36 See_Comment [Auto mated message] The system which ge nerated this result transmit swathi reference range : <=65. The reference range was not used to interpr et this result as deny l/abnormal. [facility] [id number] 18:13:00 Test Item Value Reference Range Interpretation Comments AST (test code = AST) 28 See_Comment [Auto mated message] The system which ge nerated this result transmit swathi reference range : <=37. The reference range was not used to interpr et this result as deny l/abnormal. [facility] [id number] 18:13:00 Test Item Value Reference Range Interpretation Comments Alk Phos (test code = Alk Phos) 231 39-136 [facility] [id number] 18:13:00 Test Item Value Reference Range Interpretation Comments Bili Total (test code = Bili Total) 1.0 0.2-1.3 [facility] [id number] 18:13:00 Test Item Value Reference Range Interpretation Comments AGAP (test code = AGAP) 11.4 10.0-20.0 [place] 491452-08-05 18:13:00 Test Item Value Reference Range Interpretation Comments B/C Ratio (test code = B/C Ratio) 8 1 6-25 [place] [address]-08-05 18:13:00 Test Item Value Reference Range Interpretation Comments Globulin (test code = Globulin) 3.5 2.7-4.2 [place] 491452-08-05 18:13:00 Test Item Value Reference Range Interpretation Comments A/G Ratio (test code = A/G Ratio) 0.9 1 0.7-1.6 [place] [address]-08-05 18:13:00 Test Item Value Reference Range Interpretation Comments eGFR (test code = eGFR) 9 [place] 841442-08-05 18:13:00 Test Item Value Reference Range Interpretation Comments WBC (test code = WBC) 4.8 3.7-10.4 [place] 841442-08-05 18:13:00 Test Item Value Reference Range Interpretation Comments RBC (test code = RBC) 1.93 4.70-6.10 [place] 841442-08-05 18:13:00 Test Item Value Reference Range Interpretation Comments Hgb (test code = Hgb) 7.2 14.0-18.0 [place] [address]-08-05 18:13:00 Test Item Value Reference Range Interpretation Comments Hct (test code = Hct) 21.2 42.0-54.0 [place] 841442-08-05 18:13:00 Test Item Value Reference Range Interpretation Comments MCV (test code = MCV) 110.1 80.0-94.0 [place] [address]-08-05 18:13:00 Test Item Value Reference Range Interpretation Comments MCH (test code = MCH) 37.1 pg 27.0-31.0 [place] [address]-08-05 18:13:00 Test Item Value Reference Range Interpretation Comments MCHC (test code = MCHC) 33.7 32.0-36.0 [place] [address]-08-05 18:13:00 Test Item Value Reference Range Interpretation Comments RDW (test code = RDW) 25.8 11.5-14.5 [place] [address]-08-05 18:13:00 Test Item Value Reference Range Interpretation Comments Platelet (test code = Platelet) 216 133-450 [place] 841442-08-05 18:13:00 Test Item Value Reference Range Interpretation Comments MPV (test code = MPV) 8.2 7.4-10.4 [place] [address]-08-05 18:13:00 Test Item Value Reference Range Interpretation Comments PT (test code = PT) 16.9 s 12.0-14.7 [place] [address]-08-05 18:13:00 Test Item Value Reference Range Interpretation Comments INR (test code = INR) 1.39 1 0.85-1.17 [place] [address]-08-05 18:13:00 Test Item Value Reference Range Interpretation Comments PTT (test code = PTT) 35.0 s 22.9-35.8 [place] [address]-08-05 18:13:00 Test Item Value Reference Range Interpretation Comments Plt Morph (test code = Normal (01/02/22 1:13 PM) Plt Morph) [place] 841442-08-05 18:13:00 Test Item Value Reference Range Interpretation Comments Segs (test code = Segs) 76.4 45.0-75.0 [place] [address]-08-05 18:13:00 Test Item Value Reference Range Interpretation Comments Lymphocytes (test code = Lymphocytes) 14.6 20.0-40.0 [place] [address]-08-05 18:13:00 Test Item Value Reference Range Interpretation Comments Monocytes (test code = Monocytes) 7.5 2.0-12.0 [place] [address]-08-05 18:13:00 Test Item Value Reference Range Interpretation Comments Eosinophils (test code = 0.6 See_Comment [A utomated message] The Eosinophils) system which ge nerated this result tra nsmitted reference range : <=4.0. The reference r samantha was not used to int erpret this result as normal/abnormal . [place] [address]-08-05 18:13:00 Test Item Value Reference Range Interpretation Comments Basophils (test code = 0.9 See_Comment [Aut omated message] The Basophils) system which ge nerated this result tra nsmitted reference range : <=1.0. The reference r samantha was not used to int erpret this result as normal/abnormal . [place] [address]-08-05 18:13:00 Test Item Value Reference Range Interpretation Comments Neutrophils # (test code = Neutrophils 3.7 1.5-8.1 #) [place] [address]-08-05 18:13:00 Test Item Value Reference Range Interpretation Comments Lymphocytes # (test code = Lymphocytes 0.7 1.0-5.5 #) [place] [address]-08-05 18:13:00 Test Item Value Reference Range Interpretation Comments Monocytes # (test code 0.4 See_Comment [Aut omated message] The = Monocytes #) system which generated this result tra nsmitted reference range : <=0.8. The reference r samantha was not used to int erpret this result as normal/abnormal . [place] [address]-08-05 18:13:00 Test Item Value Reference Range Interpretation Comments Anisocyte (test code = 2+ *ABN*(01/02/22 1:13 Anisocyte) PM) [place] [address]-08-05 18:13:00 Test Item Value Reference Range Interpretation Comments Macrocyte (test code = 2+ *ABN*(01/02/22 1:13 Macrocyte) PM) [facility] H[id number] 09:29:00 Test Item Value Reference Range Interpretation Comments Platelet (test code = Platelet) 148 133-450 [facility] HospitalVhgesdwBDCUXYDFTR4258-09-84 09:29:00 Test Item Value Reference Range Interpretation Comments MPV (test code = MPV) 8.1 7.4-10.4 [place] 841442-07-19 09:29:00 Test Item Value Reference Range Interpretation Comments D-Dimer (test code = D-Dimer) 3.63 [place] [address]-07-19 09:29:00 Test Item Value Reference Range Interpretation Comments Segs (test code = Segs) 74.8 45.0-75.0 [place] [address]-07-19 09:29:00 Test Item Value Reference Range Interpretation Comments Lymphocytes (test code = Lymphocytes) 15.5 20.0-40.0 [place] 841442-07-19 09:29:00 Test Item Value Reference Range Interpretation Comments Monocytes (test code = Monocytes) 9.5 2.0-12.0 [facility] Ho[id number] 09:29:00 Test Item Value Reference Range Interpretation Comments Basophils (test code = 0.2 See_Comment [Aut omated message] The Basophils) system which ge nerated this result tra nsmitted reference range : <=1.0. The reference r samantha was not used to int erpret this result as normal/abnormal . [facility] HospitalMldpejvLMYFPQRXUZ9271-92-52 09:29:00 Test Item Value Reference Range Interpretation Comments Neutrophils # (test code = Neutrophils 3.5 1.5-8.1 #) [facility] HospitalCainnxpVZBFMVSFQC7191-19-45 09:29:00 Test Item Value Reference Range Interpretation Comments Lymphocytes # (test code = Lymphocytes 0.7 1.0-5.5 #) [facility] HospitalAlpnpgrXSEOWSXAKB7797-91-01 09:29:00 Test Item Value Reference Range Interpretation Comments Monocytes # (test code 0.4 See_Comment [Aut omated message] The = Monocytes #) system which generated this result tra nsmitted reference range : <=0.8. The reference r samantha was not used to int erpret this result as normal/abnormal . [facility] HospitalZjkhxxrABZKTDHUDQ2727-51-79 09:29:00 Test Item Value Reference Range Interpretation Comments Macrocyte (test code = 1+ *ABN*(12/16/21 Macrocyte) 4:29 AM) [facility] HospitalCuarvbsPQIOEBKFOU7999-68-28 09:29:00 Test Item Value Reference Range Interpretation Comments C-REACTIVE PROTEIN (test code = 19.0 C-REACTIVE PROTEIN) [email or web address] [id number] 09:29:00 Test Item Value Reference Range Interpretation Comments Glucose Lvl (test code = Glucose Lvl) 199 70-99 [facility] [id number] 09:29:00 Test Item Value Reference Range Interpretation Comments BUN (test code = BUN) 28 12-19 [facility] [id number] 09:29:00 Test Item Value Reference Range Interpretation Comments Creatinine Lvl (test code = Creatinine 4.84 0.50-1.40 Lvl) [facility] [id number] 09:29:00 Test Item Value Reference Range Interpretation Comments Sodium Lvl (test code = Sodium Lvl) 134 135-145 [place] 491452-07-19 09:29:00 Test Item Value Reference Range Interpretation Comments Potassium Lvl (test code = Potassium 4.3 3.5-5.1 Lvl) [place] 491452-07-19 09:29:00 Test Item Value Reference Range Interpretation Comments Chloride Lvl (test code = Chloride Lvl) 100 95-109 [place] 491452-07-19 09:29:00 Test Item Value Reference Range Interpretation Comments CO2 (test code = CO2) 28 24-32 [place] [address]-07-19 09:29:00 Test Item Value Reference Range Interpretation Comments Calcium Lvl (test code = Calcium Lvl) 9.4 8.5-10.5 [place] [address]-07-19 09:29:00 Test Item Value Reference Range Interpretation Comments Total Protein (test code = Total 6.6 6.4-8.4 Protein) [place] 491452-07-19 09:29:00 Test Item Value Reference Range Interpretation Comments Albumin Lvl (test code = Albumin Lvl) 3.0 3.5-5.0 [place] 491452-07-19 09:29:00 Test Item Value Reference Range Interpretation Comments ALT (test code = ALT) 92 See_Comment [Auto mated message] The system which ge nerated this result transmit swathi reference range : <=65. The reference range was not used to interpr et this result as deny l/abnormal. [place] [address]-07-19 09:29:00 Test Item Value Reference Range Interpretation Comments AST (test code = AST) 123 See_Comment [Auto mated message] The system which ge nerated this result transmit swathi reference range : <=37. The reference range was not used to interpr et this result as deny l/abnormal. [place] 491452-07-19 09:29:00 Test Item Value Reference Range Interpretation Comments Alk Phos (test code = Alk Phos) 272 39-136 [place] 491452-07-19 09:29:00 Test Item Value Reference Range Interpretation Comments Bili Total (test code = Bili Total) 0.9 0.2-1.3 [place] [address]-07-19 09:29:00 Test Item Value Reference Range Interpretation Comments AGAP (test code = AGAP) 10.3 10.0-20.0 [place] 491452-07-19 09:29:00 Test Item Value Reference Range Interpretation Comments B/C Ratio (test code = B/C Ratio) 6 1 6-25 [place] [address]-07-19 09:29:00 Test Item Value Reference Range Interpretation Comments Globulin (test code = Globulin) 3.6 2.7-4.2 [place] 491452-07-19 09:29:00 Test Item Value Reference Range Interpretation Comments A/G Ratio (test code = A/G Ratio) 0.8 1 0.7-1.6 [place] 491452-07-19 09:29:00 Test Item Value Reference Range Interpretation Comments eGFR (test code = eGFR) 12 [facility]2022-07-19 09:29:00 Test Item Value Reference Range Interpretation Comments Phosphorus (test code = Phosphorus) 4.3 2.5-4.5 [place] 841442-07-19 09:29:00 Test Item Value Reference Range Interpretation Comments WBC (test code = WBC) 4.7 3.7-10.4 [place] 841442-07-19 09:29:00 Test Item Value Reference Range Interpretation Comments RBC (test code = RBC) 2.14 4.70-6.10 [place] 841442-07-19 09:29:00 Test Item Value Reference Range Interpretation Comments Hgb (test code = Hgb) 7.6 14.0-18.0 [place] 841442-07-19 09:29:00 Test Item Value Reference Range Interpretation Comments Hct (test code = Hct) 22.8 42.0-54.0 [place] [address]-07-19 09:29:00 Test Item Value Reference Range Interpretation Comments MCV (test code = MCV) 106.6 80.0-94.0 [place] 841442-07-19 09:29:00 Test Item Value Reference Range Interpretation Comments MCH (test code = MCH) 35.6 pg 27.0-31.0 [place] 841442-07-19 09:29:00 Test Item Value Reference Range Interpretation Comments MCHC (test code = MCHC) 33.4 32.0-36.0 [facility] HospitalPdieqhwMIGQPKKGVB2145-38-82 09:29:00 Test Item Value Reference Range Interpretation Comments RDW (test code = RDW) 24.3 11.5-14.5 [facility] HospitalQigzaptKRSHBSELHG6118-87-31 09:29:00 Test Item Value Reference Range Interpretation Comments Platelet (test code = Platelet) 148 133-450 [facility] HospitalGtvcmhuTGSSTLYIZX0484-55-11 09:29:00 Test Item Value Reference Range Interpretation Comments MPV (test code = MPV) 8.1 7.4-10.4 [place] 841442-07-19 09:29:00 Test Item Value Reference Range Interpretation Comments D-Dimer (test code = D-Dimer) 3.63 [place] 841442-07-19 09:29:00 Test Item Value Reference Range Interpretation Comments Segs (test code = Segs) 74.8 45.0-75.0 [facility] HospitalMjylglqYVLXMDQJPT3386-94-96 09:29:00 Test Item Value Reference Range Interpretation Comments Lymphocytes (test code = Lymphocytes) 15.5 20.0-40.0 [facility] HospitalZsjnfdyINDHYMLTZK3428-55-33 09:29:00 Test Item Value Reference Range Interpretation Comments Monocytes (test code = Monocytes) 9.5 2.0-12.0 [place] 841442-07-19 09:29:00 Test Item Value Reference Range Interpretation Comments Basophils (test code = 0.2 See_Comment [Aut omated message] The Basophils) system which ge nerated this result tra nsmitted reference range : <=1.0. The reference r samantha was not used to int erpret this result as normal/abnormal . [facility] HospitalTcstmaaFYEPSRQPAX8244-30-75 09:29:00 Test Item Value Reference Range Interpretation Comments Neutrophils # (test code = Neutrophils 3.5 1.5-8.1 #) [place] 841442-07-19 09:29:00 Test Item Value Reference Range Interpretation Comments Lymphocytes # (test code = Lymphocytes 0.7 1.0-5.5 #) [facility] HospitalUxximksWUVFWTUKMR6011-36-07 09:29:00 Test Item Value Reference Range Interpretation Comments Monocytes # (test code 0.4 See_Comment [Aut omated message] The = Monocytes #) system which generated this result tra nsmitted reference range : <=0.8. The reference r samantha was not used to int erpret this result as normal/abnormal . [facility]yt[facility]HWAK[facility]JZPXU[facility]52[facility]-37 09:29:00 Test Item Value Reference Range Interpretation Comments Macrocyte (test code = 1+ *ABN*(12/16/21 Macrocyte) 4:29 AM) [facility] HospitalPyijepcFXAQUPTCRM5567-71-61 09:29:00 Test Item Value Reference Range Interpretation Comments C-REACTIVE PROTEIN (test code = 19.0 C-REACTIVE PROTEIN) [place] 491452-07-19 09:29:00 Test Item Value Reference Range Interpretation Comments Glucose Lvl (test code = Glucose Lvl) 199 70-99 [place] 491452-07-19 09:29:00 Test Item Value Reference Range Interpretation Comments BUN (test code = BUN) 28 - [place] 491452-07-19 09:29:00 Test Item Value Reference Range Interpretation Comments Creatinine Lvl (test code = Creatinine 4.84 0.50-1.40 Lvl) [facility]2022-07-19 09:29:00 Test Item Value Reference Range Interpretation Comments Sodium Lvl (test code = Sodium Lvl) 134 135-145 [place] 491452-07-19 09:29:00 Test Item Value Reference Range Interpretation Comments Potassium Lvl (test code = Potassium 4.3 3.5-5.1 Lvl) [facility]2022-07-19 09:29:00 Test Item Value Reference Range Interpretation Comments Chloride Lvl (test code = Chloride Lvl) 100 95-109 [place] 491452-07-19 09:29:00 Test Item Value Reference Range Interpretation Comments CO2 (test code = CO2) 28 24-32 [place] 491452-07-19 09:29:00 Test Item Value Reference Range Interpretation Comments Calcium Lvl (test code = Calcium Lvl) 9.4 8.5-10.5 [place] 491452-07-19 09:29:00 Test Item Value Reference Range Interpretation Comments Total Protein (test code = Total 6.6 6.4-8.4 Protein) [place] 491452-07-19 09:29:00 Test Item Value Reference Range Interpretation Comments Albumin Lvl (test code = Albumin Lvl) 3.0 3.5-5.0 [email or web address] [id number] 09:29:00 Test Item Value Reference Range Interpretation Comments ALT (test code = ALT) 92 See_Comment [Auto mated message] The system which ge nerated this result transmit swathi reference range : <=65. The reference range was not used to interpr et this result as deny l/abnormal. [facility] [id number] 09:29:00 Test Item Value Reference Range Interpretation Comments AST (test code = AST) 123 See_Comment [Auto mated message] The system which ge nerated this result transmit swathi reference range : <=37. The reference range was not used to interpr et this result as deny l/abnormal. [facility] [id number] 09:29:00 Test Item Value Reference Range Interpretation Comments Alk Phos (test code = Alk Phos) 272 39-136 [facility] [id number] 09:29:00 Test Item Value Reference Range Interpretation Comments Bili Total (test code = Bili Total) 0.9 0.2-1.3 [facility] [id number] 09:29:00 Test Item Value Reference Range Interpretation Comments AGAP (test code = AGAP) 10.3 10.0-20.0 [facility] [id number] 09:29:00 Test Item Value Reference Range Interpretation Comments B/C Ratio (test code = B/C Ratio) 6 1 6-25 [facility] [id number] 09:29:00 Test Item Value Reference Range Interpretation Comments Globulin (test code = Globulin) 3.6 2.7-4.2 [facility] [id number] 09:29:00 Test Item Value Reference Range Interpretation Comments A/G Ratio (test code = A/G Ratio) 0.8 1 0.7-1.6 [facility] [id number] 09:29:00 Test Item Value Reference Range Interpretation Comments eGFR (test code = eGFR) 12 [facility] [id number] 09:29:00 Test Item Value Reference Range Interpretation Comments Phosphorus (test code = Phosphorus) 4.3 2.5-4.5 [facility] H[id number] 09:29:00 Test Item Value Reference Range Interpretation Comments WBC (test code = WBC) 4.7 3.7-10.4 [facility] HospitalRffcaslQWYXFMAHTF5131-33-66 09:29:00 Test Item Value Reference Range Interpretation Comments RBC (test code = RBC) 2.14 4.70-6.10 [facility] HospitalJpfifjyVFPAYJDZVL3399-27-80 09:29:00 Test Item Value Reference Range Interpretation Comments Hgb (test code = Hgb) 7.6 14.0-18.0 [facility] HospitalMrdqubyORCLQLWAPG0367-88-88 09:29:00 Test Item Value Reference Range Interpretation Comments Hct (test code = Hct) 22.8 42.0-54.0 [place] 841442-07-19 09:29:00 Test Item Value Reference Range Interpretation Comments MCV (test code = MCV) 106.6 80.0-94.0 [facility] HospitalCymxyfiCFVLIHQUCK3199-50-58 09:29:00 Test Item Value Reference Range Interpretation Comments MCH (test code = MCH) 35.6 pg 27.0-31.0 [facility] HospitalVarndajBOCGIODJHP0348-69-11 09:29:00 Test Item Value Reference Range Interpretation Comments MCHC (test code = MCHC) 33.4 32.0-36.0 [facility] HospitalLkiemrqBVOQBSMTFO9431-57-06 09:29:00 Test Item Value Reference Range Interpretation Comments RDW (test code = RDW) 24.3 11.5-14.5 [facility] HospitalFhysulwALOOLNSMOM7345-85-56 09:29:00 Test Item Value Reference Range Interpretation Comments Platelet (test code = Platelet) 148 133-450 [facility] HospitalSriolnmEBTWGAOXRA9808-75-34 09:29:00 Test Item Value Reference Range Interpretation Comments MPV (test code = MPV) 8.1 7.4-10.4 [place] 841442-07-19 09:29:00 Test Item Value Reference Range Interpretation Comments D-Dimer (test code = D-Dimer) 3.63 [place] 841442-07-19 09:29:00 Test Item Value Reference Range Interpretation Comments Segs (test code = Segs) 74.8 45.0-75.0 [place] 841442-07-19 09:29:00 Test Item Value Reference Range Interpretation Comments Lymphocytes (test code = Lymphocytes) 15.5 20.0-40.0 [facility] HospitalAvlvhmhDHMESVPOHX8663-89-19 09:29:00 Test Item Value Reference Range Interpretation Comments Monocytes (test code = Monocytes) 9.5 2.0-12.0 [facility] HospitalHivvcesVBYUBKOYHD8063-18-06 09:29:00 Test Item Value Reference Range Interpretation Comments Basophils (test code = 0.2 See_Comment [Aut omated message] The Basophils) system which ge nerated this result tra nsmitted reference range : <=1.0. The reference r samantha was not used to int erpret this result as normal/abnormal . [facility] HospitalFbqpvyrBUTAZKEQMT2857-46-90 09:29:00 Test Item Value Reference Range Interpretation Comments Neutrophils # (test code = Neutrophils 3.5 1.5-8.1 #) [facility] HospitalGnfcrqgFCIZCGXAID4681-63-67 09:29:00 Test Item Value Reference Range Interpretation Comments Lymphocytes # (test code = Lymphocytes 0.7 1.0-5.5 #) [place] 841442-07-19 09:29:00 Test Item Value Reference Range Interpretation Comments Monocytes # (test code 0.4 See_Comment [Aut omated message] The = Monocytes #) system which generated this result tra nsmitted reference range : <=0.8. The reference r samantha was not used to int erpret this result as normal/abnormal . [facility] HospitalDpjusfrIXVIDGMXCU2774-53-42 09:29:00 Test Item Value Reference Range Interpretation Comments Macrocyte (test code = 1+ *ABN*(12/16/21 Macrocyte) 4:29 AM) [facility] HospitalKxuznnjJMRYAZGWQJ7471-12-73 09:29:00 Test Item Value Reference Range Interpretation Comments C-REACTIVE PROTEIN (test code = 19.0 C-REACTIVE PROTEIN) [facility] [id number] 09:29:00 Test Item Value Reference Range Interpretation Comments Glucose Lvl (test code = Glucose Lvl) 199 70-99 [facility] [id number] 09:29:00 Test Item Value Reference Range Interpretation Comments BUN (test code = BUN) 28 - [facility] [id number] 09:29:00 Test Item Value Reference Range Interpretation Comments Creatinine Lvl (test code = Creatinine 4.84 0.50-1.40 Lvl) [place] 491452-07-19 09:29:00 Test Item Value Reference Range Interpretation Comments Sodium Lvl (test code = Sodium Lvl) 134 135-145 [place] 491452-07-19 09:29:00 Test Item Value Reference Range Interpretation Comments Potassium Lvl (test code = Potassium 4.3 3.5-5.1 Lvl) [place] [address]-07-19 09:29:00 Test Item Value Reference Range Interpretation Comments Chloride Lvl (test code = Chloride Lvl) 100 95-109 [place] [address]-07-19 09:29:00 Test Item Value Reference Range Interpretation Comments CO2 (test code = CO2) 28 24-32 [place] [address]-07-19 09:29:00 Test Item Value Reference Range Interpretation Comments Calcium Lvl (test code = Calcium Lvl) 9.4 8.5-10.5 [place] 491452-07-19 09:29:00 Test Item Value Reference Range Interpretation Comments Total Protein (test code = Total 6.6 6.4-8.4 Protein) [place] [address]-07-19 09:29:00 Test Item Value Reference Range Interpretation Comments Albumin Lvl (test code = Albumin Lvl) 3.0 3.5-5.0 [place] 491452-07-19 09:29:00 Test Item Value Reference Range Interpretation Comments ALT (test code = ALT) 92 See_Comment [Auto mated message] The system which ge nerated this result transmit swathi reference range : <=65. The reference range was not used to interpr et this result as deny l/abnormal. [place] 491452-07-19 09:29:00 Test Item Value Reference Range Interpretation Comments AST (test code = AST) 123 See_Comment [Auto mated message] The system which ge nerated this result transmit swathi reference range : <=37. The reference range was not used to interpr et this result as deny l/abnormal. [place] [address]-07-19 09:29:00 Test Item Value Reference Range Interpretation Comments Alk Phos (test code = Alk Phos) 272 39-136 [place] 491452-07-19 09:29:00 Test Item Value Reference Range Interpretation Comments Bili Total (test code = Bili Total) 0.9 0.2-1.3 [place] 491452-07-19 09:29:00 Test Item Value Reference Range Interpretation Comments AGAP (test code = AGAP) 10.3 10.0-20.0 [place] 491452-07-19 09:29:00 Test Item Value Reference Range Interpretation Comments B/C Ratio (test code = B/C Ratio) 6 1 6-25 [place] 491452-07-19 09:29:00 Test Item Value Reference Range Interpretation Comments Globulin (test code = Globulin) 3.6 2.7-4.2 [place] 491452-07-19 09:29:00 Test Item Value Reference Range Interpretation Comments A/G Ratio (test code = A/G Ratio) 0.8 1 0.7-1.6 [place] 491452-07-19 09:29:00 Test Item Value Reference Range Interpretation Comments eGFR (test code = eGFR) 12 [facility]2022-07-19 09:29:00 Test Item Value Reference Range Interpretation Comments Phosphorus (test code = Phosphorus) 4.3 2.5-4.5 [place] 841442-07-19 09:29:00 Test Item Value Reference Range Interpretation Comments WBC (test code = WBC) 4.7 3.7-10.4 [place] 841442-07-19 09:29:00 Test Item Value Reference Range Interpretation Comments RBC (test code = RBC) 2.14 4.70-6.10 [place] 841442-07-19 09:29:00 Test Item Value Reference Range Interpretation Comments Hgb (test code = Hgb) 7.6 14.0-18.0 [place] 841442-07-19 09:29:00 Test Item Value Reference Range Interpretation Comments Hct (test code = Hct) 22.8 42.0-54.0 [place] [address]-07-19 09:29:00 Test Item Value Reference Range Interpretation Comments MCV (test code = MCV) 106.6 80.0-94.0 [place] [address]-07-19 09:29:00 Test Item Value Reference Range Interpretation Comments MCH (test code = MCH) 35.6 pg 27.0-31.0 [facility]yn[facility]MWNSZKOKDS0043-16-14 09:29:00 Test Item Value Reference Range Interpretation Comments MCHC (test code = MCHC) 33.4 32.0-36.0 [place] 841442-07-19 09:29:00 Test Item Value Reference Range Interpretation Comments RDW (test code = RDW) 24.3 11.5-14.5 [place] 841442-07-19 09:29:00 Test Item Value Reference Range Interpretation Comments Platelet (test code = Platelet) 148 133-450 [place] 841442-07-19 09:29:00 Test Item Value Reference Range Interpretation Comments MPV (test code = MPV) 8.1 7.4-10.4 [place] 841442-07-19 09:29:00 Test Item Value Reference Range Interpretation Comments D-Dimer (test code = D-Dimer) 3.63 [facility] HospitalKfkkbniQZKYFYUIFR1188-13-70 09:29:00 Test Item Value Reference Range Interpretation Comments Segs (test code = Segs) 74.8 45.0-75.0 [place] 841442-07-19 09:29:00 Test Item Value Reference Range Interpretation Comments Lymphocytes (test code = Lymphocytes) 15.5 20.0-40.0 [place] 841442-07-19 09:29:00 Test Item Value Reference Range Interpretation Comments Monocytes (test code = Monocytes) 9.5 2.0-12.0 [place] 841442-07-19 09:29:00 Test Item Value Reference Range Interpretation Comments Basophils (test code = 0.2 See_Comment [Aut omated message] The Basophils) system which ge nerated this result tra nsmitted reference range : <=1.0. The reference r samantha was not used to int erpret this result as normal/abnormal . [facility] HospitalXqctfuwQDOYFGRUUV6204-12-92 09:29:00 Test Item Value Reference Range Interpretation Comments Neutrophils # (test code = Neutrophils 3.5 1.5-8.1 #) [facility] HospitalAviojdcBXZSILEXWZ4145-92-22 09:29:00 Test Item Value Reference Range Interpretation Comments Lymphocytes # (test code = Lymphocytes 0.7 1.0-5.5 #) [place] 841442-07-19 09:29:00 Test Item Value Reference Range Interpretation Comments Monocytes # (test code 0.4 See_Comment [Aut omated message] The = Monocytes #) system which generated this result tra nsmitted reference range : <=0.8. The reference r samantha was not used to int erpret this result as normal/abnormal . [facility] HospitalSjglzudVYFIGZHTFT3990-13-65 09:29:00 Test Item Value Reference Range Interpretation Comments Macrocyte (test code = 1+ *ABN*(12/16/21 Macrocyte) 4:29 AM) [facility]ejgdmjKIYNIJTTNL8246-02-17 09:29:00 Test Item Value Reference Range Interpretation Comments C-REACTIVE PROTEIN (test code = 19.0 C-REACTIVE PROTEIN) [facility]2022-07-19 09:29:00 Test Item Value Reference Range Interpretation Comments Glucose Lvl (test code = Glucose Lvl) 199 70-99 [facility]2022-07-19 09:29:00 Test Item Value Reference Range Interpretation Comments BUN (test code = BUN) 28 - [place] 491452-07-19 09:29:00 Test Item Value Reference Range Interpretation Comments Creatinine Lvl (test code = Creatinine 4.84 0.50-1.40 Lvl) [facility]2022-07-19 09:29:00 Test Item Value Reference Range Interpretation Comments Sodium Lvl (test code = Sodium Lvl) 134 135-145 [facility]2022-07-19 09:29:00 Test Item Value Reference Range Interpretation Comments Potassium Lvl (test code = Potassium 4.3 3.5-5.1 Lvl) [place] 491452-07-19 09:29:00 Test Item Value Reference Range Interpretation Comments Chloride Lvl (test code = Chloride Lvl) 100 95-109 [place] 491452-07-19 09:29:00 Test Item Value Reference Range Interpretation Comments CO2 (test code = CO2) 28 24-32 [facility]2022-07-19 09:29:00 Test Item Value Reference Range Interpretation Comments Calcium Lvl (test code = Calcium Lvl) 9.4 8.5-10.5 [facility]2022-07-19 09:29:00 Test Item Value Reference Range Interpretation Comments Total Protein (test code = Total 6.6 6.4-8.4 Protein) [email or web address] [id number] 09:29:00 Test Item Value Reference Range Interpretation Comments Albumin Lvl (test code = Albumin Lvl) 3.0 3.5-5.0 [email or web address] [id number] 09:29:00 Test Item Value Reference Range Interpretation Comments ALT (test code = ALT) 92 See_Comment [Auto mated message] The system which ge nerated this result transmit swathi reference range : <=65. The reference range was not used to interpr et this result as deny l/abnormal. [facility] [id number] 09:29:00 Test Item Value Reference Range Interpretation Comments AST (test code = AST) 123 See_Comment [Auto mated message] The system which ge nerated this result transmit swathi reference range : <=37. The reference range was not used to interpr et this result as deny l/abnormal. [facility] [employer] [id number] 09:29:00 Test Item Value Reference Range Interpretation Comments Alk Phos (test code = Alk Phos) 272 39-136 [facility] [id number] 09:29:00 Test Item Value Reference Range Interpretation Comments Bili Total (test code = Bili Total) 0.9 0.2-1.3 [email or web address] [id number] 09:29:00 Test Item Value Reference Range Interpretation Comments AGAP (test code = AGAP) 10.3 10.0-20.0 [facility] [employer] [id number] 09:29:00 Test Item Value Reference Range Interpretation Comments B/C Ratio (test code = B/C Ratio) 6 1 6-25 [email or web address] [id number] 09:29:00 Test Item Value Reference Range Interpretation Comments Globulin (test code = Globulin) 3.6 2.7-4.2 [facility] [employer] [id number] 09:29:00 Test Item Value Reference Range Interpretation Comments A/G Ratio (test code = A/G Ratio) 0.8 1 0.7-1.6 [email or web address] [id number] 09:29:00 Test Item Value Reference Range Interpretation Comments eGFR (test code = eGFR) 12 [facility] [employer] [id number] 09:29:00 Test Item Value Reference Range Interpretation Comments Phosphorus (test code = Phosphorus) 4.3 2.5-4.5 [facility] HospitalRrpqqibJXDHGXWJEC4561-58-52 09:29:00 Test Item Value Reference Range Interpretation Comments WBC (test code = WBC) 4.7 3.7-10.4 [facility] HospitalViahuluZGPISFXVSE1329-16-36 09:29:00 Test Item Value Reference Range Interpretation Comments RBC (test code = RBC) 2.14 4.70-6.10 [facility] HospitalByeookdNUPGZIXJSW2093-25-99 09:29:00 Test Item Value Reference Range Interpretation Comments Hgb (test code = Hgb) 7.6 14.0-18.0 [place] 841442-07-19 09:29:00 Test Item Value Reference Range Interpretation Comments Hct (test code = Hct) 22.8 42.0-54.0 [facility] HospitalOaspxvvDZQRDNAPNB3377-83-51 09:29:00 Test Item Value Reference Range Interpretation Comments MCV (test code = MCV) 106.6 80.0-94.0 [facility] HospitalAhriezsEKJUWCWVAY0910-84-19 09:29:00 Test Item Value Reference Range Interpretation Comments MCH (test code = MCH) 35.6 pg 27.0-31.0 [facility] HospitalOdqtzvkWSFYBKGTVP3713-42-16 09:29:00 Test Item Value Reference Range Interpretation Comments MCHC (test code = MCHC) 33.4 32.0-36.0 [facility] HospitalIfipibmRQSOBOCHZU5034-66-66 09:29:00 Test Item Value Reference Range Interpretation Comments RDW (test code = RDW) 24.3 11.5-14.5 [facility]NHNTHXJBUV1296-[facility] 02:28:00 Test Item Value Reference Range Interpretation Comments Hep Bs Ag (test code Negative *NA*(12/15/21 = Hep Bs Ag) 9:28 PM) [facility] CenterDoanicbNYGCWOJODS6342-64-77 02:28:00 Test Item Value Reference Range Interpretation Comments Hep Bs Ag (test code Negative *NA*(12/15/21 = Hep Bs Ag) 9:28 PM) [facility] CenterMjwfbejLAHNEHIQBJ9329-10-87 02:28:00 Test Item Value Reference Range Interpretation Comments Hep Bs Ag (test code Negative *NA*(12/15/21 = Hep Bs Ag) 9:28 PM) [facility] DtidkezTVDKXDOVUS8484-61-87 02:28:00 Test Item Value Reference Range Interpretation Comments Hep Bs Ag (test code Negative *NA*(12/15/21 = Hep Bs Ag) 9:28 PM) [facility] [id number] 17:16:00 Test Item Value Reference Range Interpretation Comments Gram Stain Report Gram Stain Performed By: (test code = [facility] [place] St[facility] Report) [facility] Respiratory w/Gram [id number] 17:16:00 Test Item Value Reference Range Interpretation Comments Culture: Respiratory Moderate Yeast Normal w/Gram Stain (test code Respiratory Lyndsay = Culture: Respiratory Isolated w/Gram Stain) [facility] Ftqllh3983-12-26 17:16:00 Test Item Value Reference Range Interpretation Comments Gram Stain Report Gram Stain Performed By: (test code = [facility] Stain Report) [facility]: Respiratory w/Gram [id number] 17:16:00 Test Item Value Reference Range Interpretation Comments Culture: Respiratory Moderate Yeast Normal w/Gram Stain (test code Respiratory Lyndsay = Culture: Respiratory Isolated w/Gram Stain) [facility] [id number] 17:16:00 Test Item Value Reference Range Interpretation Comments Gram Stain Report Gram Stain Performed By: (test code = [facility] Stain Report) [facility]: Respiratory w/Gram [id number] 17:16:00 Test Item Value Reference Range Interpretation Comments Culture: Respiratory Moderate Yeast Normal w/Gram Stain (test code Respiratory Lyndsay = Culture: Respiratory Isolated w/Gram Stain) [facility] Obyzwt9026-01-42 17:16:00 Test Item Value Reference Range Interpretation Comments Gram Stain Report Gram Stain Performed By: (test code = [facility] Stain Report) [facility]: Respiratory w/Gram [id number] 17:16:00 Test Item Value Reference Range Interpretation Comments Culture: Respiratory Moderate Yeast Normal w/Gram Stain (test code Respiratory Lyndsay = Culture: Respiratory Isolated w/Gram Stain) [facility] CenterannCHEM [id number] 09:04:00 Test Item Value Reference Range Interpretation Comments Glucose Lvl (test code = Glucose Lvl) 59 70-99 [place] 491452-07-18 09:04:00 Test Item Value Reference Range Interpretation Comments BUN (test code = BUN) 41 7-22 [place] [address]-07-18 09:04:00 Test Item Value Reference Range Interpretation Comments Creatinine Lvl (test code = Creatinine 7.00 0.50-1.40 Lvl) [place] [address]-07-18 09:04:00 Test Item Value Reference Range Interpretation Comments Sodium Lvl (test code = Sodium Lvl) 134 135-145 [place] 491452-07-18 09:04:00 Test Item Value Reference Range Interpretation Comments Potassium Lvl (test code = Potassium 4.0 3.5-5.1 Lvl) [place] [address]-07-18 09:04:00 Test Item Value Reference Range Interpretation Comments Chloride Lvl (test code = Chloride Lvl) 102 95-109 [place] 491452-07-18 09:04:00 Test Item Value Reference Range Interpretation Comments CO2 (test code = CO2) 25 24-32 [place] [address]-07-18 09:04:00 Test Item Value Reference Range Interpretation Comments Calcium Lvl (test code = Calcium Lvl) 9.1 8.5-10.5 [place] [address]-07-18 09:04:00 Test Item Value Reference Range Interpretation Comments Total Protein (test code = Total 6.2 6.4-8.4 Protein) [place] [address]-07-18 09:04:00 Test Item Value Reference Range Interpretation Comments Albumin Lvl (test code = Albumin Lvl) 2.8 3.5-5.0 [place] 491452-07-18 09:04:00 Test Item Value Reference Range Interpretation Comments ALT (test code = ALT) 78 See_Comment [Auto mated message] The system which ge nerated this result transmit swathi reference range : <=65. The reference range was not used to interpr et this result as deny l/abnormal. [place] [address]-07-18 09:04:00 Test Item Value Reference Range Interpretation Comments AST (test code = AST) 117 See_Comment [Auto mated message] The system which ge nerated this result transmit swathi reference range : <=37. The reference range was not used to interpr et this result as deny l/abnormal. [facility] HospitalTask [facility] [id number] 09:04:00 Test Item Value Reference Range Interpretation Comments Alk Phos (test code = Alk Phos) 251 39-136 [facility] [id number] 09:04:00 Test Item Value Reference Range Interpretation Comments Bili Total (test code = Bili Total) 0.9 0.2-1.3 [facility] [id number] 09:04:00 Test Item Value Reference Range Interpretation Comments AGAP (test code = AGAP) 11.0 10.0-20.0 [facility] [id number] 09:04:00 Test Item Value Reference Range Interpretation Comments B/C Ratio (test code = B/C Ratio) 6 1 6-25 [place] 491452-07-18 09:04:00 Test Item Value Reference Range Interpretation Comments Globulin (test code = Globulin) 3.4 2.7-4.2 [facility] [id number] 09:04:00 Test Item Value Reference Range Interpretation Comments A/G Ratio (test code = A/G Ratio) 0.8 1 0.7-1.6 [facility] [id number] 09:04:00 Test Item Value Reference Range Interpretation Comments eGFR (test code = eGFR) 8 [facility] HospitalXfdbbxeTIYDLWXALQ8837-91-70 09:04:00 Test Item Value Reference Range Interpretation Comments D-Dimer (test code = D-Dimer) 3.03 [facility] HospitalHnsrdpwJADWANKZYQ8759-42-33 09:04:00 Test Item Value Reference Range Interpretation Comments WBC (test code = WBC) 3.6 3.7-10.4 [place] 841442-07-18 09:04:00 Test Item Value Reference Range Interpretation Comments RBC (test code = RBC) 2.07 4.70-6.10 [place] 841442-07-18 09:04:00 Test Item Value Reference Range Interpretation Comments Hgb (test code = Hgb) 7.5 14.0-18.0 [place] 841442-07-18 09:04:00 Test Item Value Reference Range Interpretation Comments Hct (test code = Hct) 22.0 42.0-54.0 [place] 841442-07-18 09:04:00 Test Item Value Reference Range Interpretation Comments MCV (test code = MCV) 106.3 80.0-94.0 [place] 841442-07-18 09:04:00 Test Item Value Reference Range Interpretation Comments MCH (test code = MCH) 36.1 pg 27.0-31.0 [facility] HospitalNsktrkzQLHBSUXHAI5186-62-61 09:04:00 Test Item Value Reference Range Interpretation Comments MCHC (test code = MCHC) 33.9 32.0-36.0 [place] 841442-07-18 09:04:00 Test Item Value Reference Range Interpretation Comments RDW (test code = RDW) 23.9 11.5-14.5 [place] 841442-07-18 09:04:00 Test Item Value Reference Range Interpretation Comments Platelet (test code = Platelet) 133 133-450 [facility] HospitalDhlcrjhNHCPOIWCRS0038-75-49 09:04:00 Test Item Value Reference Range Interpretation Comments MPV (test code = MPV) 8.1 7.4-10.4 [place] 841442-07-18 09:04:00 Test Item Value Reference Range Interpretation Comments Segs (test code = Segs) 60.8 45.0-75.0 [place] 841442-07-18 09:04:00 Test Item Value Reference Range Interpretation Comments Lymphocytes (test code = Lymphocytes) 22.3 20.0-40.0 [place] 841442-07-18 09:04:00 Test Item Value Reference Range Interpretation Comments Monocytes (test code = Monocytes) 13.9 2.0-12.0 [place] [address]-07-18 09:04:00 Test Item Value Reference Range Interpretation Comments Eosinophils (test code = 2.6 See_Comment [A utomated message] The Eosinophils) system which ge nerated this result tra nsmitted reference range : <=4.0. The reference r samantha was not used to int erpret this result as normal/abnormal . [place] 841442-07-18 09:04:00 Test Item Value Reference Range Interpretation Comments Basophils (test code = 0.4 See_Comment [Aut omated message] The Basophils) system which ge nerated this result tra nsmitted reference range : <=1.0. The reference r samantha was not used to int erpret this result as normal/abnormal . [facility] HospitalWuonifdKMSJULNGHF6894-99-22 09:04:00 Test Item Value Reference Range Interpretation Comments Neutrophils # (test code = Neutrophils 2.2 1.5-8.1 #) [facility] HospitalAfiahexCAHWRQMUZF6890-75-22 09:04:00 Test Item Value Reference Range Interpretation Comments Lymphocytes # (test code = Lymphocytes 0.8 1.0-5.5 #) [facility] HospitalXxmvjkyDYRDWWBZUI9978-30-49 09:04:00 Test Item Value Reference Range Interpretation Comments Monocytes # (test code 0.5 See_Comment [Aut omated message] The = Monocytes #) system which generated this result tra nsmitted reference range : <=0.8. The reference r samantha was not used to int erpret this result as normal/abnormal . [facility] HospitalKdyqecaOCNXFFVIZI5006-78-01 09:04:00 Test Item Value Reference Range Interpretation Comments Eosinophils # (test code 0.1 See_Comment [A utomated message] The = Eosinophils #) system whic h generated this result tra nsmitted reference range : <=0.5. The reference r samantha was not used to int erpret this result as normal/abnormal . [facility] HospitalLzdynplTHJGLALGML7431-76-31 09:04:00 Test Item Value Reference Range Interpretation Comments Macrocyte (test code = 1+ *ABN*(12/15/21 Macrocyte) 4:04 AM) [facility] HospitalTopnovbTJOVVFGYAQ2353-38-26 09:04:00 Test Item Value Reference Range Interpretation Comments C-REACTIVE PROTEIN (test code = 25.1 C-REACTIVE PROTEIN) [facility] HospitalZxizyjzJITQNVTWOO9870-22-83 09:04:00 Test Item Value Reference Range Interpretation Comments Vanco Lvl (test code = Vanco Lvl) 15.2 [facility] HospitalTask [facility] [id number] 09:04:00 Test Item Value Reference Range Interpretation Comments Glucose Lvl (test code = Glucose Lvl) 59 70-99 [facility]2022-07-18 09:04:00 Test Item Value Reference Range Interpretation Comments BUN (test code = BUN) 41 7-22 [facility] [id number] 09:04:00 Test Item Value Reference Range Interpretation Comments Creatinine Lvl (test code = Creatinine 7.00 0.50-1.40 Lvl) [place] 491452-07-18 09:04:00 Test Item Value Reference Range Interpretation Comments Sodium Lvl (test code = Sodium Lvl) 134 135-145 [place] 491452-07-18 09:04:00 Test Item Value Reference Range Interpretation Comments Potassium Lvl (test code = Potassium 4.0 3.5-5.1 Lvl) [place] 491452-07-18 09:04:00 Test Item Value Reference Range Interpretation Comments Chloride Lvl (test code = Chloride Lvl) 102 95-109 [place] 491452-07-18 09:04:00 Test Item Value Reference Range Interpretation Comments CO2 (test code = CO2) 25 24-32 [place] 491452-07-18 09:04:00 Test Item Value Reference Range Interpretation Comments Calcium Lvl (test code = Calcium Lvl) 9.1 8.5-10.5 [place] 491452-07-18 09:04:00 Test Item Value Reference Range Interpretation Comments Total Protein (test code = Total 6.2 6.4-8.4 Protein) [place] 491452-07-18 09:04:00 Test Item Value Reference Range Interpretation Comments Albumin Lvl (test code = Albumin Lvl) 2.8 3.5-5.0 [place] 491452-07-18 09:04:00 Test Item Value Reference Range Interpretation Comments ALT (test code = ALT) 78 See_Comment [Auto mated message] The system which ge nerated this result transmit swathi reference range : <=65. The reference range was not used to interpr et this result as deny l/abnormal. [place] 491452-07-18 09:04:00 Test Item Value Reference Range Interpretation Comments AST (test code = AST) 117 See_Comment [Auto mated message] The system which ge nerated this result transmit swathi reference range : <=37. The reference range was not used to interpr et this result as deny l/abnormal. [place] [address]-07-18 09:04:00 Test Item Value Reference Range Interpretation Comments Alk Phos (test code = Alk Phos) 251 39-136 [place] 491452-07-18 09:04:00 Test Item Value Reference Range Interpretation Comments Bili Total (test code = Bili Total) 0.9 0.2-1.3 [place] 491452-07-18 09:04:00 Test Item Value Reference Range Interpretation Comments AGAP (test code = AGAP) 11.0 10.0-20.0 [place] 491452-07-18 09:04:00 Test Item Value Reference Range Interpretation Comments B/C Ratio (test code = B/C Ratio) 6 1 6-25 [place] 491452-07-18 09:04:00 Test Item Value Reference Range Interpretation Comments Globulin (test code = Globulin) 3.4 2.7-4.2 [place] 491452-07-18 09:04:00 Test Item Value Reference Range Interpretation Comments A/G Ratio (test code = A/G Ratio) 0.8 1 0.7-1.6 [facility]2022-07-18 09:04:00 Test Item Value Reference Range Interpretation Comments eGFR (test code = eGFR) 8 [facility] HospitalGsqygxlWMIFOIZHNQ7894-85-24 09:04:00 Test Item Value Reference Range Interpretation Comments D-Dimer (test code = D-Dimer) 3.03 [place] 841442-07-18 09:04:00 Test Item Value Reference Range Interpretation Comments WBC (test code = WBC) 3.6 3.7-10.4 [place] 841442-07-18 09:04:00 Test Item Value Reference Range Interpretation Comments RBC (test code = RBC) 2.07 4.70-6.10 [place] 841442-07-18 09:04:00 Test Item Value Reference Range Interpretation Comments Hgb (test code = Hgb) 7.5 14.0-18.0 [place] 841442-07-18 09:04:00 Test Item Value Reference Range Interpretation Comments Hct (test code = Hct) 22.0 42.0-54.0 [place] 841442-07-18 09:04:00 Test Item Value Reference Range Interpretation Comments MCV (test code = MCV) 106.3 80.0-94.0 [place] 841442-07-18 09:04:00 Test Item Value Reference Range Interpretation Comments MCH (test code = MCH) 36.1 pg 27.0-31.0 [facility]BzemdnpQNAUGUKPGV1749-96-29 09:04:00 Test Item Value Reference Range Interpretation Comments MCHC (test code = MCHC) 33.9 32.0-36.0 [facility] HospitalTvjnycqFYBPKGVNCZ5880-09-18 09:04:00 Test Item Value Reference Range Interpretation Comments RDW (test code = RDW) 23.9 11.5-14.5 [facility] HospitalWorwzroNJPSVTRANP1386-45-13 09:04:00 Test Item Value Reference Range Interpretation Comments Platelet (test code = Platelet) 133 133-450 [facility] HospitalGubkmzeURRLBQLBBF6587-12-80 09:04:00 Test Item Value Reference Range Interpretation Comments MPV (test code = MPV) 8.1 7.4-10.4 [facility] HospitalGszfgzaLCMRHOWYJQ6251-04-76 09:04:00 Test Item Value Reference Range Interpretation Comments Segs (test code = Segs) 60.8 45.0-75.0 [facility] HospitalBoltmsaXNNKRDWMGY3810-22-69 09:04:00 Test Item Value Reference Range Interpretation Comments Lymphocytes (test code = Lymphocytes) 22.3 20.0-40.0 [facility] HospitalJlnahecVODHUTSFUZ4880-29-20 09:04:00 Test Item Value Reference Range Interpretation Comments Monocytes (test code = Monocytes) 13.9 2.0-12.0 [facility] HospitalHcmurayXBDNTDFBZR5690-99-34 09:04:00 Test Item Value Reference Range Interpretation Comments Eosinophils (test code = 2.6 See_Comment [A utomated message] The Eosinophils) system which ge nerated this result tra nsmitted reference range : <=4.0. The reference r samantha was not used to int erpret this result as normal/abnormal . [facility] HospitalSyfwpmyAQMYMDENDA6626-72-57 09:04:00 Test Item Value Reference Range Interpretation Comments Basophils (test code = 0.4 See_Comment [Aut omated message] The Basophils) system which ge nerated this result tra nsmitted reference range : <=1.0. The reference r samantha was not used to int erpret this result as normal/abnormal . [facility] HospitalUcegcpkMZQIRFDJZJ0530-53-13 09:04:00 Test Item Value Reference Range Interpretation Comments Neutrophils # (test code = Neutrophils 2.2 1.5-8.1 #) [facility] HospitalVlhaqazCRLRHUKCBS5006-54-84 09:04:00 Test Item Value Reference Range Interpretation Comments Lymphocytes # (test code = Lymphocytes 0.8 1.0-5.5 #) [facility] HospitalFjjothrKEENVKZXSM6758-64-24 09:04:00 Test Item Value Reference Range Interpretation Comments Monocytes # (test code 0.5 See_Comment [Aut omated message] The = Monocytes #) system which generated this result tra nsmitted reference range : <=0.8. The reference r samantha was not used to int erpret this result as normal/abnormal . [facility] HospitalVqnzqocGACSOAWUZK9737-06-26 09:04:00 Test Item Value Reference Range Interpretation Comments Eosinophils # (test code 0.1 See_Comment [A utomated message] The = Eosinophils #) system whic h generated this result tra nsmitted reference range : <=0.5. The reference r samantha was not used to int erpret this result as normal/abnormal . [facility] HospitalZpfbawbHANFDQSTSD1399-12-31 09:04:00 Test Item Value Reference Range Interpretation Comments Macrocyte (test code = 1+ *ABN*(12/15/21 Macrocyte) 4:04 AM) [facility] HospitalZaavhcvFOQHPFQXBO8726-61-48 09:04:00 Test Item Value Reference Range Interpretation Comments C-REACTIVE PROTEIN (test code = 25.1 C-REACTIVE PROTEIN) [facility] HospitalGlkjqkkJLAYUVVUDS2059-89-51 09:04:00 Test Item Value Reference Range Interpretation Comments Vanco Lvl (test code = Vanco Lvl) 15.2 [facility]2022-07-18 09:04:00 Test Item Value Reference Range Interpretation Comments Glucose Lvl (test code = Glucose Lvl) 59 70-99 [facility]2022-07-18 09:04:00 Test Item Value Reference Range Interpretation Comments BUN (test code = BUN) 41 7-22 [facility]2022-07-18 09:04:00 Test Item Value Reference Range Interpretation Comments Creatinine Lvl (test code = Creatinine 7.00 0.50-1.40 Lvl) [facility]2022-07-18 09:04:00 Test Item Value Reference Range Interpretation Comments Sodium Lvl (test code = Sodium Lvl) 134 135-145 [facility] HospitalTask [facility]ting Inc[employer] [id number] 09:04:00 Test Item Value Reference Range Interpretation Comments Potassium Lvl (test code = Potassium 4.0 3.5-5.1 Lvl) [place] 491452-07-18 09:04:00 Test Item Value Reference Range Interpretation Comments Chloride Lvl (test code = Chloride Lvl) 102 95-109 [place] [address]-07-18 09:04:00 Test Item Value Reference Range Interpretation Comments CO2 (test code = CO2) 25 24-32 [place] 491452-07-18 09:04:00 Test Item Value Reference Range Interpretation Comments Calcium Lvl (test code = Calcium Lvl) 9.1 8.5-10.5 [place] 491452-07-18 09:04:00 Test Item Value Reference Range Interpretation Comments Total Protein (test code = Total 6.2 6.4-8.4 Protein) [place] 491452-07-18 09:04:00 Test Item Value Reference Range Interpretation Comments Albumin Lvl (test code = Albumin Lvl) 2.8 3.5-5.0 [place] 491452-07-18 09:04:00 Test Item Value Reference Range Interpretation Comments ALT (test code = ALT) 78 See_Comment [Auto mated message] The system which ge nerated this result transmit swathi reference range : <=65. The reference range was not used to interpr et this result as deny l/abnormal. [place] 491452-07-18 09:04:00 Test Item Value Reference Range Interpretation Comments AST (test code = AST) 117 See_Comment [Auto mated message] The system which ge nerated this result transmit swathi reference range : <=37. The reference range was not used to interpr et this result as deny l/abnormal. [place] 491452-07-18 09:04:00 Test Item Value Reference Range Interpretation Comments Alk Phos (test code = Alk Phos) 251 39-136 [place] 491452-07-18 09:04:00 Test Item Value Reference Range Interpretation Comments Bili Total (test code = Bili Total) 0.9 0.2-1.3 [place] [address]-07-18 09:04:00 Test Item Value Reference Range Interpretation Comments AGAP (test code = AGAP) 11.0 10.0-20.0 [place] 491452-07-18 09:04:00 Test Item Value Reference Range Interpretation Comments B/C Ratio (test code = B/C Ratio) 6 1 6-25 [place] 491452-07-18 09:04:00 Test Item Value Reference Range Interpretation Comments Globulin (test code = Globulin) 3.4 2.7-4.2 [place] 491452-07-18 09:04:00 Test Item Value Reference Range Interpretation Comments A/G Ratio (test code = A/G Ratio) 0.8 1 0.7-1.6 [facility]2022-07-18 09:04:00 Test Item Value Reference Range Interpretation Comments eGFR (test code = eGFR) 8 [facility] HospitalSuhutcaNGJEAKUYPP4932-76-65 09:04:00 Test Item Value Reference Range Interpretation Comments D-Dimer (test code = D-Dimer) 3.03 [place] 841442-07-18 09:04:00 Test Item Value Reference Range Interpretation Comments WBC (test code = WBC) 3.6 3.7-10.4 [place] 841442-07-18 09:04:00 Test Item Value Reference Range Interpretation Comments RBC (test code = RBC) 2.07 4.70-6.10 [facility] HospitalNomtyzxVJLQHPIRDI6854-56-44 09:04:00 Test Item Value Reference Range Interpretation Comments Hgb (test code = Hgb) 7.5 14.0-18.0 [place] 841442-07-18 09:04:00 Test Item Value Reference Range Interpretation Comments Hct (test code = Hct) 22.0 42.0-54.0 [place] 841442-07-18 09:04:00 Test Item Value Reference Range Interpretation Comments MCV (test code = MCV) 106.3 80.0-94.0 [place] 841442-07-18 09:04:00 Test Item Value Reference Range Interpretation Comments MCH (test code = MCH) 36.1 pg 27.0-31.0 [place] 841442-07-18 09:04:00 Test Item Value Reference Range Interpretation Comments MCHC (test code = MCHC) 33.9 32.0-36.0 [place] 841442-07-18 09:04:00 Test Item Value Reference Range Interpretation Comments RDW (test code = RDW) 23.9 11.5-14.5 [place] 841442-07-18 09:04:00 Test Item Value Reference Range Interpretation Comments Platelet (test code = Platelet) 133 133-450 [place] 841442-07-18 09:04:00 Test Item Value Reference Range Interpretation Comments MPV (test code = MPV) 8.1 7.4-10.4 [place] 841442-07-18 09:04:00 Test Item Value Reference Range Interpretation Comments Segs (test code = Segs) 60.8 45.0-75.0 [place] 841442-07-18 09:04:00 Test Item Value Reference Range Interpretation Comments Lymphocytes (test code = Lymphocytes) 22.3 20.0-40.0 [place] [address]-07-18 09:04:00 Test Item Value Reference Range Interpretation Comments Monocytes (test code = Monocytes) 13.9 2.0-12.0 [place] 841442-07-18 09:04:00 Test Item Value Reference Range Interpretation Comments Eosinophils (test code = 2.6 See_Comment [A utomated message] The Eosinophils) system which ge nerated this result tra nsmitted reference range : <=4.0. The reference r samantha was not used to int erpret this result as normal/abnormal . [place] 841442-07-18 09:04:00 Test Item Value Reference Range Interpretation Comments Basophils (test code = 0.4 See_Comment [Aut omated message] The Basophils) system which ge nerated this result tra nsmitted reference range : <=1.0. The reference r samantha was not used to int erpret this result as normal/abnormal . [place] 841442-07-18 09:04:00 Test Item Value Reference Range Interpretation Comments Neutrophils # (test code = Neutrophils 2.2 1.5-8.1 #) [place] 841442-07-18 09:04:00 Test Item Value Reference Range Interpretation Comments Lymphocytes # (test code = Lymphocytes 0.8 1.0-5.5 #) [place] 841442-07-18 09:04:00 Test Item Value Reference Range Interpretation Comments Monocytes # (test code 0.5 See_Comment [Aut omated message] The = Monocytes #) system which generated this result tra nsmitted reference range : <=0.8. The reference r samantha was not used to int erpret this result as normal/abnormal . [facility] HospitalLajhcqqJZQECYDLYX0292-69-79 09:04:00 Test Item Value Reference Range Interpretation Comments Eosinophils # (test code 0.1 See_Comment [A utomated message] The = Eosinophils #) system whic h generated this result tra nsmitted reference range : <=0.5. The reference r samantha was not used to int erpret this result as normal/abnormal . [facility] HospitalFqugrtqRVZLVVHJFG9799-44-96 09:04:00 Test Item Value Reference Range Interpretation Comments Macrocyte (test code = 1+ *ABN*(12/15/21 Macrocyte) 4:04 AM) [facility] HospitalVzmgnaoXXHOSFFWFX9036-27-72 09:04:00 Test Item Value Reference Range Interpretation Comments C-REACTIVE PROTEIN (test code = 25.1 C-REACTIVE PROTEIN) [facility] HospitalKckadhzKQXPTMIWKO5433-49-67 09:04:00 Test Item Value Reference Range Interpretation Comments Vanco Lvl (test code = Vanco Lvl) 15.2 [facility] AQFDQ3299-08-24 09:04:00 Test Item Value Reference Range Interpretation Comments Glucose Lvl (test code = Glucose Lvl) 59 70-99 [facility] HospitalTask [facility] Inc[facility] [id number] 09:04:00 Test Item Value Reference Range Interpretation Comments BUN (test code = BUN) 41 7-22 [facility] [id number] 09:04:00 Test Item Value Reference Range Interpretation Comments Creatinine Lvl (test code = Creatinine 7.00 0.50-1.40 Lvl) [facility] [id number] 09:04:00 Test Item Value Reference Range Interpretation Comments Sodium Lvl (test code = Sodium Lvl) 134 135-145 [facility] Hospital[facility] [id number] 09:04:00 Test Item Value Reference Range Interpretation Comments Potassium Lvl (test code = Potassium 4.0 3.5-5.1 Lvl) [facility] [id number] 09:04:00 Test Item Value Reference Range Interpretation Comments Chloride Lvl (test code = Chloride Lvl) 102 95-109 [place] 491452-07-18 09:04:00 Test Item Value Reference Range Interpretation Comments CO2 (test code = CO2) 25 24-32 [place] 491452-07-18 09:04:00 Test Item Value Reference Range Interpretation Comments Calcium Lvl (test code = Calcium Lvl) 9.1 8.5-10.5 [place] 491452-07-18 09:04:00 Test Item Value Reference Range Interpretation Comments Total Protein (test code = Total 6.2 6.4-8.4 Protein) [place] 491452-07-18 09:04:00 Test Item Value Reference Range Interpretation Comments Albumin Lvl (test code = Albumin Lvl) 2.8 3.5-5.0 [place] [address]-07-18 09:04:00 Test Item Value Reference Range Interpretation Comments ALT (test code = ALT) 78 See_Comment [Auto mated message] The system which ge nerated this result transmit swathi reference range : <=65. The reference range was not used to interpr et this result as deny l/abnormal. [place] 491452-07-18 09:04:00 Test Item Value Reference Range Interpretation Comments AST (test code = AST) 117 See_Comment [Auto mated message] The system which ge nerated this result transmit swathi reference range : <=37. The reference range was not used to interpr et this result as deny l/abnormal. [place] 491452-07-18 09:04:00 Test Item Value Reference Range Interpretation Comments Alk Phos (test code = Alk Phos) 251 39-136 [place] 491452-07-18 09:04:00 Test Item Value Reference Range Interpretation Comments Bili Total (test code = Bili Total) 0.9 0.2-1.3 [place] [address]-07-18 09:04:00 Test Item Value Reference Range Interpretation Comments AGAP (test code = AGAP) 11.0 10.0-20.0 [place] [address]-07-18 09:04:00 Test Item Value Reference Range Interpretation Comments B/C Ratio (test code = B/C Ratio) 6 1 6-25 [place] [address]-07-18 09:04:00 Test Item Value Reference Range Interpretation Comments Globulin (test code = Globulin) 3.4 2.7-4.2 [facility] HospitalCHEM [id number] 09:04:00 Test Item Value Reference Range Interpretation Comments A/G Ratio (test code = A/G Ratio) 0.8 1 0.7-1.6 [facility] HospitalCHEM [id number] 09:04:00 Test Item Value Reference Range Interpretation Comments eGFR (test code = eGFR) 8 [facility] HospitalJthzvleNRACAOUXJL3672-74-30 09:04:00 Test Item Value Reference Range Interpretation Comments D-Dimer (test code = D-Dimer) 3.03 [facility] HospitalSxwzsvcTUESZEOURE3975-64-49 09:04:00 Test Item Value Reference Range Interpretation Comments WBC (test code = WBC) 3.6 3.7-10.4 [facility] HospitalMghodqiPWGWWDXNAK5570-06-66 09:04:00 Test Item Value Reference Range Interpretation Comments RBC (test code = RBC) 2.07 4.70-6.10 [facility]JsbofceJDBETVNUZP2962-[facility]-12 09:04:00 Test Item Value Reference Range Interpretation Comments Hgb (test code = Hgb) 7.5 14.0-18.0 [facility] HospitalSutkaihUWMPUNRGCS8058-18-09 09:04:00 Test Item Value Reference Range Interpretation Comments Hct (test code = Hct) 22.0 42.0-54.0 [facility] CenterNpzmcmuJIROIUXOSZ5917-42-25 09:04:00 Test Item Value Reference Range Interpretation Comments MCV (test code = MCV) 106.3 80.0-94.0 [facility] CenterUblllsbIDQCMMCEFB8549-64-00 09:04:00 Test Item Value Reference Range Interpretation Comments MCH (test code = MCH) 36.1 pg 27.0-31.0 [facility] HospitalCvpueroGHUDAIFWUK2077-92-22 09:04:00 Test Item Value Reference Range Interpretation Comments MCHC (test code = MCHC) 33.9 32.0-36.0 [facility] CenterDslngsnUKROHLHRNE2603-88-42 09:04:00 Test Item Value Reference Range Interpretation Comments RDW (test code = RDW) 23.9 11.5-14.5 [facility] HospitalDjnyovgCVBMBAMAVY5609-62-50 09:04:00 Test Item Value Reference Range Interpretation Comments Platelet (test code = Platelet) 133 133-450 [place] [address]-07-18 09:04:00 Test Item Value Reference Range Interpretation Comments MPV (test code = MPV) 8.1 7.4-10.4 [place] 841442-07-18 09:04:00 Test Item Value Reference Range Interpretation Comments Segs (test code = Segs) 60.8 45.0-75.0 [place] 841442-07-18 09:04:00 Test Item Value Reference Range Interpretation Comments Lymphocytes (test code = Lymphocytes) 22.3 20.0-40.0 [place] [address]-07-18 09:04:00 Test Item Value Reference Range Interpretation Comments Monocytes (test code = Monocytes) 13.9 2.0-12.0 [place] [address]-07-18 09:04:00 Test Item Value Reference Range Interpretation Comments Eosinophils (test code = 2.6 See_Comment [A utomated message] The Eosinophils) system which ge nerated this result tra nsmitted reference range : <=4.0. The reference r samantha was not used to int erpret this result as normal/abnormal . [facility] HospitalFtkpzssGZWKDOLVJP0726-51-44 09:04:00 Test Item Value Reference Range Interpretation Comments Basophils (test code = 0.4 See_Comment [Aut omated message] The Basophils) system which ge nerated this result tra nsmitted reference range : <=1.0. The reference r samantha was not used to int erpret this result as normal/abnormal . [facility] HospitalRvwlvsrSYGMIGOEWB3244-03-97 09:04:00 Test Item Value Reference Range Interpretation Comments Neutrophils # (test code = Neutrophils 2.2 1.5-8.1 #) [place] 841442-07-18 09:04:00 Test Item Value Reference Range Interpretation Comments Lymphocytes # (test code = Lymphocytes 0.8 1.0-5.5 #) [place] [address]-07-18 09:04:00 Test Item Value Reference Range Interpretation Comments Monocytes # (test code 0.5 See_Comment [Aut omated message] The = Monocytes #) system which generated this result tra nsmitted reference range : <=0.8. The reference r samantha was not used to int erpret this result as normal/abnormal . [place] [address]-07-18 09:04:00 Test Item Value Reference Range Interpretation Comments Eosinophils # (test code 0.1 See_Comment [A utomated message] The = Eosinophils #) system Dexetraic h generated this result tra nsmitted reference range : <=0.5. The reference r samantha was not used to int erpret this result as normal/abnormal . [facility] HospitalWgbvsxaEXKFWWTONG2862-97-60 09:04:00 Test Item Value Reference Range Interpretation Comments Macrocyte (test code = 1+ *ABN*(12/15/21 Macrocyte) 4:04 AM) [facility] HospitalCkhndiyHDUCUYYOYA4745-49-79 09:04:00 Test Item Value Reference Range Interpretation Comments C-REACTIVE PROTEIN (test code = 25.1 C-REACTIVE PROTEIN) [facility] HospitalBethiexXYUKFXDLEE8058-49-25 09:04:00 Test Item Value Reference Range Interpretation Comments Vanco Lvl (test code = Vanco Lvl) 15.2 [facility]annBA[facility] - [id number] 00:29:00 Test Item Value Reference Range Interpretation Comments MRSA by PCR (test Negative (12/14/21 7:29 code = MRSA by PCR) PM) [facility] CenterannBACT[facility] - [id number] 00:29:00 Test Item Value Reference Range Interpretation Comments MRSA by PCR (test Negative (12/14/21 7:29 code = MRSA by PCR) PM) [facility]annBACT[facility] - [id number] 00:29:00 Test Item Value Reference Range Interpretation Comments MRSA by PCR (test Negative (12/14/21 7:29 code = MRSA by PCR) PM) [facility]annBACT[facility] - [id number] 00:29:00 Test Item Value Reference Range Interpretation Comments MRSA by PCR (test Negative (12/14/21 7:29 code = MRSA by PCR) PM) [facility] CenterannMOLECULAR [id number] 23:56:00 Test Item Value Reference Range Interpretation Comments Source Respiratory Nasophrngl Swb Panel PCR (test code = *NA*(12/14/21 6:56 PM) Source Respiratory Panel PCR) [facility]annMO[facility]ULAR [id number] 23:56:00 Test Item Value Reference Range Interpretation Comments Influenza A PCR (test Negative (12/14/21 6:56 code = Influenza A PCR) PM) [facility] [id number] 23:56:00 Test Item Value Reference Range Interpretation Comments Influenza B PCR (test Negative (12/14/21 6:56 code = Influenza B PCR) PM) [facility] [id number] 23:56:00 Test Item Value Reference Range Interpretation Comments RSV PCR (test code = Negative (12/14/21 6:56 RSV PCR) PM) [facility] [id number] 23:56:00 Test Item Value Reference Range Interpretation Comments Source Respiratory Nasophrngl Swb Panel PCR (test code = *NA*(12/14/21 6:56 PM) Source Respiratory Panel PCR) [facility]2022-07-17 23:56:00 Test Item Value Reference Range Interpretation Comments Influenza A PCR (test Negative (12/14/21 6:56 code = Influenza A PCR) PM) [facility]2022-07-17 23:56:00 Test Item Value Reference Range Interpretation Comments Influenza B PCR (test Negative (12/14/21 6:56 code = Influenza B PCR) PM) [facility]2022-07-17 23:56:00 Test Item Value Reference Range Interpretation Comments RSV PCR (test code = Negative (12/14/21 6:56 RSV PCR) PM) [facility] [id number] 23:56:00 Test Item Value Reference Range Interpretation Comments Source Respiratory Nasophrngl Swb Panel PCR (test code = *NA*(12/14/21 6:56 PM) Source Respiratory Panel PCR) [facility] [id number] 23:56:00 Test Item Value Reference Range Interpretation Comments Influenza A PCR (test Negative (12/14/21 6:56 code = Influenza A PCR) PM) [facility]2022-07-17 23:56:00 Test Item Value Reference Range Interpretation Comments Influenza B PCR (test Negative (12/14/21 6:56 code = Influenza B PCR) PM) [facility]2022-07-17 23:56:00 Test Item Value Reference Range Interpretation Comments RSV PCR (test code = Negative (12/14/21 6:56 RSV PCR) PM) [facility] [id number] 23:56:00 Test Item Value Reference Range Interpretation Comments Source Respiratory Nasophrngl Swb Panel PCR (test code = *NA*(12/14/21 6:56 PM) Source Respiratory Panel PCR) [facility] [id number] 23:56:00 Test Item Value Reference Range Interpretation Comments Influenza A PCR (test Negative (12/14/21 6:56 code = Influenza A PCR) PM) [facility] [id number] 23:56:00 Test Item Value Reference Range Interpretation Comments Influenza B PCR (test Negative (12/14/21 6:56 code = Influenza B PCR) PM) [facility] [id number] 23:56:00 Test Item Value Reference Range Interpretation Comments RSV PCR (test code = Negative (12/14/21 6:56 RSV PCR) PM) [facility] CenterK[facility] [id number] 23:55:00 Test Item Value Reference Range Interpretation Comments BNP (test code = BNP) 1994 [facility] [id number] 23:55:00 Test Item Value Reference Range Interpretation Comments Procalcitonin Lvl (test 0.80 See_Comment [Au tomated message] code = Procalcitonin Lvl) e system which generated this result transmitted ref erence range: <=0.10. The reference range was not used to interpr et this result as normal/abnormal . [facility]SocialDefender[facility] 23:55:00 Test Item Value Reference Range Interpretation Comments BNP (test code = BNP) 1994 [facility] [employer] [id number] 23:55:00 Test Item Value Reference Range Interpretation Comments Procalcitonin Lvl (test 0.80 See_Comment [Au tomated message] code = Procalcitonin Lvl) Th e system which generated this result transmitted ref erence range: <=0.10. The reference range was not used to interpr et this result as normal/abnormal . [facility] Feedback2022-07-17 23:55:00 Test Item Value Reference Range Interpretation Comments BNP (test code = BNP) 1994 [facility] [employer]2022-07-17 23:55:00 Test Item Value Reference Range Interpretation Comments Procalcitonin Lvl (test 0.80 See_Comment [Au tomated message] code = Procalcitonin Lvl) e system which generated this result transmitted ref erence range: <=0.10. The reference range was not used to interpr et this result as normal/abnormal . [facility] [employer] [id number] 23:55:00 Test Item Value Reference Range Interpretation Comments BNP (test code = BNP) 1994 [facility] [id number] 23:55:00 Test Item Value Reference Range Interpretation Comments Procalcitonin Lvl (test 0.80 See_Comment [Au tomated message] code = Procalcitonin Lvl) e system which generated this result transmitted ref erence range: <=0.10. The reference range was not used to interpr et this result as normal/abnormal . [facility] [employer] [id number] 21:26:00 Test Item Value Reference Range Interpretation Comments HS Troponin I 1 Hr (test code = HS 389 Troponin I 1 Hr) [facility] [id number] 21:26:00 Test Item Value Reference Range Interpretation Comments HS Troponin I 0 to 1 Hour Delta (test 49 1 code = HS Troponin I 0 to 1 Hour Delta) [facility] Feedback2022-07-17 21:26:00 Test Item Value Reference Range Interpretation Comments HS Troponin I 1 Hr (test code = HS 389 Troponin I 1 Hr) [facility] [employer] [id number] 21:26:00 Test Item Value Reference Range Interpretation Comments HS Troponin I 0 to 1 Hour Delta (test 49 1 code = HS Troponin I 0 to 1 Hour Delta) [facility] [employer] [id number] 21:26:00 Test Item Value Reference Range Interpretation Comments HS Troponin I 1 Hr (test code = HS 389 Troponin I 1 Hr) [facility] [employer] [id number] 21:26:00 Test Item Value Reference Range Interpretation Comments HS Troponin I 0 to 1 Hour Delta (test 49 1 code = HS Troponin I 0 to 1 Hour Delta) [facility] [employer] [id number] 21:26:00 Test Item Value Reference Range Interpretation Comments HS Troponin I 1 Hr (test code = HS 389 Troponin I 1 Hr) [facility] [id number] 21:26:00 Test Item Value Reference Range Interpretation Comments HS Troponin I 0 to 1 Hour Delta (test 49 1 code = HS Troponin I 0 to 1 Hour Delta) [facility] [id number] 20:10:00 Test Item Value Reference Range Interpretation Comments HS Troponin I Baseline (test code = HS 340 Troponin I Baseline) [facility] [id number] 20:10:00 Test Item Value Reference Range Interpretation Comments Glucose Lvl (test code = Glucose Lvl) 60 70-99 [facility]2022-07-17 20:10:00 Test Item Value Reference Range Interpretation Comments BUN (test code = BUN) 35 7-22 [facility]2022-07-17 20:10:00 Test Item Value Reference Range Interpretation Comments Creatinine Lvl (test code = Creatinine 6.10 0.50-1.40 Lvl) [facility]2022-07-17 20:10:00 Test Item Value Reference Range Interpretation Comments Sodium Lvl (test code = Sodium Lvl) 139 135-145 [facility]2022-07-17 20:10:00 Test Item Value Reference Range Interpretation Comments Potassium Lvl (test code = Potassium 3.1 3.5-5.1 Lvl) [facility]2022-07-17 20:10:00 Test Item Value Reference Range Interpretation Comments Chloride Lvl (test code = Chloride Lvl) 105 95-109 [facility]2022-07-17 20:10:00 Test Item Value Reference Range Interpretation Comments CO2 (test code = CO2) 28 24-32 [facility]2022-07-17 20:10:00 Test Item Value Reference Range Interpretation Comments Calcium Lvl (test code = Calcium Lvl) 8.1 8.5-10.5 [facility]2022-07-17 20:10:00 Test Item Value Reference Range Interpretation Comments Total Protein (test code = Total 5.8 6.4-8.4 Protein) [facility]2022-07-17 20:10:00 Test Item Value Reference Range Interpretation Comments Albumin Lvl (test code = Albumin Lvl) 2.6 3.5-5.0 [facility]2022-07-17 20:10:00 Test Item Value Reference Range Interpretation Comments ALT (test code = ALT) 74 See_Comment [Auto mated message] The system which ge nerated this result transmit swathi reference range : <=65. The reference range was not used to interpr et this result as deny l/abnormal. [facility] [id number] 20:10:00 Test Item Value Reference Range Interpretation Comments AST (test code = AST) 117 See_Comment [Auto mated message] The system which ge nerated this result transmit swathi reference range : <=37. The reference range was not used to interpr et this result as deny l/abnormal. [facility] [id number] 20:10:00 Test Item Value Reference Range Interpretation Comments Alk Phos (test code = Alk Phos) 241 39-136 [facility] [id number] 20:10:00 Test Item Value Reference Range Interpretation Comments Bili Total (test code = Bili Total) 0.8 0.2-1.3 [facility] [id number] 20:10:00 Test Item Value Reference Range Interpretation Comments AGAP (test code = AGAP) 9.1 10.0-20.0 [facility] [id number] 20:10:00 Test Item Value Reference Range Interpretation Comments B/C Ratio (test code = B/C Ratio) 6 1 6-25 [facility] [id number] 20:10:00 Test Item Value Reference Range Interpretation Comments Globulin (test code = Globulin) 3.2 2.7-4.2 [facility] [id number] 20:10:00 Test Item Value Reference Range Interpretation Comments A/G Ratio (test code = A/G Ratio) 0.8 1 0.7-1.6 [facility] [id number] 20:10:00 Test Item Value Reference Range Interpretation Comments eGFR (test code = eGFR) 9 [place] 841442-07-17 20:10:00 Test Item Value Reference Range Interpretation Comments WBC (test code = WBC) 4.3 3.7-10.4 [place] 841442-07-17 20:10:00 Test Item Value Reference Range Interpretation Comments RBC (test code = RBC) 2.17 4.70-6.10 [facility]SnmeqywXZSMEIZVGH8516-55-41 20:10:00 Test Item Value Reference Range Interpretation Comments Hgb (test code = Hgb) 7.7 14.0-18.0 [facility] HospitalSrrsnwpVRYCZYGRIR3469-93-42 20:10:00 Test Item Value Reference Range Interpretation Comments Hct (test code = Hct) 22.9 42.0-54.0 [facility] HospitalRnsybqqDIMEWDZTGW4782-28-91 20:10:00 Test Item Value Reference Range Interpretation Comments MCV (test code = MCV) 105.9 80.0-94.0 [facility] HospitalSgzkujgKSXTIUIYOA5260-08-64 20:10:00 Test Item Value Reference Range Interpretation Comments MCH (test code = MCH) 35.4 pg 27.0-31.0 [facility] HospitalEuevspzBHYLVPWIKM1284-06-94 20:10:00 Test Item Value Reference Range Interpretation Comments MCHC (test code = MCHC) 33.4 32.0-36.0 [facility] HospitalZprkzxrCLNMPPIFHL3011-27-77 20:10:00 Test Item Value Reference Range Interpretation Comments RDW (test code = RDW) 23.6 11.5-14.5 [facility] HospitalHdljqpvCRYFDNSPWS7158-30-51 20:10:00 Test Item Value Reference Range Interpretation Comments Platelet (test code = Platelet) 146 133-450 [facility] Ho[id number] 20:10:00 Test Item Value Reference Range Interpretation Comments MPV (test code = MPV) 8.0 7.4-10.4 [facility] HospitalWvzmuusUVAXPQZVMK0111-28-87 20:10:00 Test Item Value Reference Range Interpretation Comments Plt Morph (test code = Normal (12/14/21 3:10 Plt Morph) PM) [facility] HospitalVemflpnKGRLFGKSIY0616-45-79 20:10:00 Test Item Value Reference Range Interpretation Comments Segs (test code = Segs) 67.4 45.0-75.0 [facility] HospitalXeemxpgSMABSVRVXW7637-71-70 20:10:00 Test Item Value Reference Range Interpretation Comments Lymphocytes (test code = Lymphocytes) 12.8 20.0-40.0 [facility] HospitalUupdakqRFPFJLQYXJ1064-08-77 20:10:00 Test Item Value Reference Range Interpretation Comments Monocytes (test code = Monocytes) 15.1 2.0-12.0 [facility] HospitalEcrkiprBECWYRQCZA8184-81-04 20:10:00 Test Item Value Reference Range Interpretation Comments Eosinophils (test code = 4.1 See_Comment [A utomated message] The Eosinophils) system which ge nerated this result tra nsmitted reference range : <=4.0. The reference r samantha was not used to int erpret this result as normal/abnormal . [facility] HospitalUjgmdbfOZZJDJIKJU7888-60-09 20:10:00 Test Item Value Reference Range Interpretation Comments Basophils (test code = 0.6 See_Comment [Aut omated message] The Basophils) system which ge nerated this result tra nsmitted reference range : <=1.0. The reference r samantha was not used to int erpret this result as normal/abnormal . [facility] HospitalQliqtnwNUADEKPYOY0372-99-17 20:10:00 Test Item Value Reference Range Interpretation Comments Neutrophils # (test code = Neutrophils 2.9 1.5-8.1 #) [facility] HospitalBztkzfcRQOGXFWJQW0998-72-33 20:10:00 Test Item Value Reference Range Interpretation Comments Lymphocytes # (test code = Lymphocytes 0.5 1.0-5.5 #) [facility] HospitalEptrldeSBRBAEHIIX4781-51-42 20:10:00 Test Item Value Reference Range Interpretation Comments Monocytes # (test code 0.6 See_Comment [Aut omated message] The = Monocytes #) system which generated this result tra nsmitted reference range : <=0.8. The reference r samantha was not used to int erpret this result as normal/abnormal . [facility] HospitalPkxmklwRGGROTZZNA7343-43-45 20:10:00 Test Item Value Reference Range Interpretation Comments Eosinophils # (test code 0.2 See_Comment [A utomated message] The = Eosinophils #) system whic h generated this result tra nsmitted reference range : <=0.5. The reference r samantha was not used to int erpret this result as normal/abnormal . [facility] HospitalQnkvospGVGUGFOPME8589-42-64 20:10:00 Test Item Value Reference Range Interpretation Comments Anisocyte (test code = 1+ *ABN*(12/14/21 Anisocyte) 3:10 PM) [facility] HospitalWgvqlhfQCCYRLMFSJ1359-81-42 20:10:00 Test Item Value Reference Range Interpretation Comments Macrocyte (test code = 1+ *ABN*(12/14/21 Macrocyte) 3:10 PM) [facility]VchzsjsSAWKFORSBY7118-49-08 20:10:00 Test Item Value Reference Range Interpretation Comments Coronavirus (COVID-19) Detected MANUEL (test code = 4*ABN*(12/14/21 3:10 Coronavirus (COVID-19) PM) MANUEL) [facility] HospitalC[facility] [id number] 20:10:00 Test Item Value Reference Range Interpretation Comments HS Troponin I Baseline (test code = HS 340 Troponin I Baseline) [facility] [id number] 20:10:00 Test Item Value Reference Range Interpretation Comments Glucose Lvl (test code = Glucose Lvl) 60 70-99 [facility] [id number] 20:10:00 Test Item Value Reference Range Interpretation Comments BUN (test code = BUN) 35 7-22 [facility]2022-07-17 20:10:00 Test Item Value Reference Range Interpretation Comments Creatinine Lvl (test code = Creatinine 6.10 0.50-1.40 Lvl) [facility]2022-07-17 20:10:00 Test Item Value Reference Range Interpretation Comments Sodium Lvl (test code = Sodium Lvl) 139 135-145 [facility]2022-07-17 20:10:00 Test Item Value Reference Range Interpretation Comments Potassium Lvl (test code = Potassium 3.1 3.5-5.1 Lvl) [facility]2022-07-17 20:10:00 Test Item Value Reference Range Interpretation Comments Chloride Lvl (test code = Chloride Lvl) 105 95-109 [facility]2022-07-17 20:10:00 Test Item Value Reference Range Interpretation Comments CO2 (test code = CO2) 28 24-32 [facility]2022-07-17 20:10:00 Test Item Value Reference Range Interpretation Comments Calcium Lvl (test code = Calcium Lvl) 8.1 8.5-10.5 [facility]2022-07-17 20:10:00 Test Item Value Reference Range Interpretation Comments Total Protein (test code = Total 5.8 6.4-8.4 Protein) [facility]2022-07-17 20:10:00 Test Item Value Reference Range Interpretation Comments Albumin Lvl (test code = Albumin Lvl) 2.6 3.5-5.0 [facility] [id number] 20:10:00 Test Item Value Reference Range Interpretation Comments ALT (test code = ALT) 74 See_Comment [Auto mated message] The system which ge nerated this result transmit swathi reference range : <=65. The reference range was not used to interpr et this result as deny l/abnormal. [facility] [employer] [id number] 20:10:00 Test Item Value Reference Range Interpretation Comments AST (test code = AST) 117 See_Comment [Auto mated message] The system which ge nerated this result transmit swathi reference range : <=37. The reference range was not used to interpr et this result as deny l/abnormal. [facility] [employer] [id number] 20:10:00 Test Item Value Reference Range Interpretation Comments Alk Phos (test code = Alk Phos) 241 39-136 [facility] [employer] [id number] 20:10:00 Test Item Value Reference Range Interpretation Comments Bili Total (test code = Bili Total) 0.8 0.2-1.3 [facility] [employer] [id number] 20:10:00 Test Item Value Reference Range Interpretation Comments AGAP (test code = AGAP) 9.1 10.0-20.0 [facility] [employer] [id number] 20:10:00 Test Item Value Reference Range Interpretation Comments B/C Ratio (test code = B/C Ratio) 6 1 6-25 [facility] [employer] [id number] 20:10:00 Test Item Value Reference Range Interpretation Comments Globulin (test code = Globulin) 3.2 2.7-4.2 [facility] [employer] [id number] 20:10:00 Test Item Value Reference Range Interpretation Comments A/G Ratio (test code = A/G Ratio) 0.8 1 0.7-1.6 [facility] [employer] [id number] 20:10:00 Test Item Value Reference Range Interpretation Comments eGFR (test code = eGFR) 9 [facility] LmqhsxoPCOUOAGGHX9039-10-69 20:10:00 Test Item Value Reference Range Interpretation Comments WBC (test code = WBC) 4.3 3.7-10.4 [facility] VoqcioiLXMLJGLLCL2554-58-68 20:10:00 Test Item Value Reference Range Interpretation Comments RBC (test code = RBC) 2.17 4.70-6.10 [facility] HospitalKygdmdzHTGCNZCCIM0630-17-01 20:10:00 Test Item Value Reference Range Interpretation Comments Hgb (test code = Hgb) 7.7 14.0-18.0 [facility] HospitalCvnqymcSUYJZZNSRQ9353-21-11 20:10:00 Test Item Value Reference Range Interpretation Comments Hct (test code = Hct) 22.9 42.0-54.0 [facility] HospitalWunrfghEOBVORPMAQ7733-86-89 20:10:00 Test Item Value Reference Range Interpretation Comments MCV (test code = MCV) 105.9 80.0-94.0 [facility] HospitalLrceoooFUMCLXPYJM0193-90-00 20:10:00 Test Item Value Reference Range Interpretation Comments MCH (test code = MCH) 35.4 pg 27.0-31.0 [facility] HospitalSuftkjvNNKZRDTKVW0211-14-06 20:10:00 Test Item Value Reference Range Interpretation Comments MCHC (test code = MCHC) 33.4 32.0-36.0 [facility] HospitalTmikgkfFAHBSXODDO8862-63-44 20:10:00 Test Item Value Reference Range Interpretation Comments RDW (test code = RDW) 23.6 11.5-14.5 [facility] HospitalMoakdhuZTAMPXRYCU2550-52-01 20:10:00 Test Item Value Reference Range Interpretation Comments Platelet (test code = Platelet) 146 133-450 [facility] HospitalVjcimmcSCMQJPZAYV8811-20-42 20:10:00 Test Item Value Reference Range Interpretation Comments MPV (test code = MPV) 8.0 7.4-10.4 [facility] HospitalVovhdytGAKUVFLUFO8195-55-45 20:10:00 Test Item Value Reference Range Interpretation Comments Plt Morph (test code = Normal (12/14/21 3:10 Plt Morph) PM) [facility] HospitalGfmgursGKJAUKRXVL2723-05-31 20:10:00 Test Item Value Reference Range Interpretation Comments Segs (test code = Segs) 67.4 45.0-75.0 [place] 841442-07-17 20:10:00 Test Item Value Reference Range Interpretation Comments Lymphocytes (test code = Lymphocytes) 12.8 20.0-40.0 [place] 841442-07-17 20:10:00 Test Item Value Reference Range Interpretation Comments Monocytes (test code = Monocytes) 15.1 2.0-12.0 [facility] HospitalOjttlnyHQIMARSLHQ6767-13-06 20:10:00 Test Item Value Reference Range Interpretation Comments Eosinophils (test code = 4.1 See_Comment [A utomated message] The Eosinophils) system which ge nerated this result tra nsmitted reference range : <=4.0. The reference r samantha was not used to int erpret this result as normal/abnormal . [facility] HospitalCgpqqzgLMBOEMRWWP5505-59-40 20:10:00 Test Item Value Reference Range Interpretation Comments Basophils (test code = 0.6 See_Comment [Aut omated message] The Basophils) system which ge nerated this result tra nsmitted reference range : <=1.0. The reference r samantha was not used to int erpret this result as normal/abnormal . [facility] HospitalHcgqduaSAKHXYKEQK5048-99-36 20:10:00 Test Item Value Reference Range Interpretation Comments Neutrophils # (test code = Neutrophils 2.9 1.5-8.1 #) [facility] HospitalAmipvmqBTFJPITRFQ9056-45-96 20:10:00 Test Item Value Reference Range Interpretation Comments Lymphocytes # (test code = Lymphocytes 0.5 1.0-5.5 #) [facility] HospitalGanfsumWRDUAJWJHT4218-58-01 20:10:00 Test Item Value Reference Range Interpretation Comments Monocytes # (test code 0.6 See_Comment [Aut omated message] The = Monocytes #) system which generated this result tra nsmitted reference range : <=0.8. The reference r samantha was not used to int erpret this result as normal/abnormal . [facility] HospitalAgrwrouCITZFFMWIA7807-16-26 20:10:00 Test Item Value Reference Range Interpretation Comments Eosinophils # (test code 0.2 See_Comment [A utomated message] The = Eosinophils #) system whic h generated this result tra nsmitted reference range : <=0.5. The reference r samantha was not used to int erpret this result as normal/abnormal . [facility] HospitalYrxknorISNGWZYYXB1776-96-69 20:10:00 Test Item Value Reference Range Interpretation Comments Anisocyte (test code = 1+ *ABN*(12/14/21 Anisocyte) 3:10 PM) [facility] HospitalBcjfwhiENZAKXAORI6998-42-36 20:10:00 Test Item Value Reference Range Interpretation Comments Macrocyte (test code = 1+ *ABN*(12/14/21 Macrocyte) 3:10 PM) [facility] HospitalOiqojxmZGTQWFCVCP8158-53-42 20:10:00 Test Item Value Reference Range Interpretation Comments Coronavirus (COVID-19) Detected MANUEL (test code = 4*ABN*(12/14/21 3:10 Coronavirus (COVID-19) PM) MANUEL) [facility] HospitalCARD[facility] [id number] 20:10:00 Test Item Value Reference Range Interpretation Comments HS Troponin I Baseline (test code = HS 340 Troponin I Baseline) [facility] [id number] 20:10:00 Test Item Value Reference Range Interpretation Comments Glucose Lvl (test code = Glucose Lvl) 60 70-99 [facility]2022-07-17 20:10:00 Test Item Value Reference Range Interpretation Comments BUN (test code = BUN) 35 7-22 [facility]2022-07-17 20:10:00 Test Item Value Reference Range Interpretation Comments Creatinine Lvl (test code = Creatinine 6.10 0.50-1.40 Lvl) [facility]2022-07-17 20:10:00 Test Item Value Reference Range Interpretation Comments Sodium Lvl (test code = Sodium Lvl) 139 135-145 [facility]2022-07-17 20:10:00 Test Item Value Reference Range Interpretation Comments Potassium Lvl (test code = Potassium 3.1 3.5-5.1 Lvl) [facility]2022-07-17 20:10:00 Test Item Value Reference Range Interpretation Comments Chloride Lvl (test code = Chloride Lvl) 105 95-109 [facility]2022-07-17 20:10:00 Test Item Value Reference Range Interpretation Comments CO2 (test code = CO2) 28 24-32 [facility]2022-07-17 20:10:00 Test Item Value Reference Range Interpretation Comments Calcium Lvl (test code = Calcium Lvl) 8.1 8.5-10.5 [facility]2022-07-17 20:10:00 Test Item Value Reference Range Interpretation Comments Total Protein (test code = Total 5.8 6.4-8.4 Protein) [facility]2022-07-17 20:10:00 Test Item Value Reference Range Interpretation Comments Albumin Lvl (test code = Albumin Lvl) 2.6 3.5-5.0 [facility] [id number] 20:10:00 Test Item Value Reference Range Interpretation Comments ALT (test code = ALT) 74 See_Comment [Auto mated message] The system which ge nerated this result transmit swathi reference range : <=65. The reference range was not used to interpr et this result as deny l/abnormal. [facility] [id number] 20:10:00 Test Item Value Reference Range Interpretation Comments AST (test code = AST) 117 See_Comment [Auto mated message] The system which ge nerated this result transmit swathi reference range : <=37. The reference range was not used to interpr et this result as deny l/abnormal. [facility] [id number] 20:10:00 Test Item Value Reference Range Interpretation Comments Alk Phos (test code = Alk Phos) 241 39-136 [facility] [id number] 20:10:00 Test Item Value Reference Range Interpretation Comments Bili Total (test code = Bili Total) 0.8 0.2-1.3 [facility] [id number] 20:10:00 Test Item Value Reference Range Interpretation Comments AGAP (test code = AGAP) 9.1 10.0-20.0 [facility] [id number] 20:10:00 Test Item Value Reference Range Interpretation Comments B/C Ratio (test code = B/C Ratio) 6 1 6-25 [facility] [id number] 20:10:00 Test Item Value Reference Range Interpretation Comments Globulin (test code = Globulin) 3.2 2.7-4.2 [facility] [id number] 20:10:00 Test Item Value Reference Range Interpretation Comments A/G Ratio (test code = A/G Ratio) 0.8 1 0.7-1.6 [facility] [id number] 20:10:00 Test Item Value Reference Range Interpretation Comments eGFR (test code = eGFR) 9 [place] 841442-07-17 20:10:00 Test Item Value Reference Range Interpretation Comments WBC (test code = WBC) 4.3 3.7-10.4 [place] 841442-07-17 20:10:00 Test Item Value Reference Range Interpretation Comments RBC (test code = RBC) 2.17 4.70-6.10 [facility] HospitalAeczmxrERJOEMOUTQ3240-89-38 20:10:00 Test Item Value Reference Range Interpretation Comments Hgb (test code = Hgb) 7.7 14.0-18.0 [place] 841442-07-17 20:10:00 Test Item Value Reference Range Interpretation Comments Hct (test code = Hct) 22.9 42.0-54.0 [facility] HospitalEiubnvyYNSVCEGJEF7551-63-56 20:10:00 Test Item Value Reference Range Interpretation Comments MCV (test code = MCV) 105.9 80.0-94.0 [place] 841442-07-17 20:10:00 Test Item Value Reference Range Interpretation Comments MCH (test code = MCH) 35.4 pg 27.0-31.0 [place] 841442-07-17 20:10:00 Test Item Value Reference Range Interpretation Comments MCHC (test code = MCHC) 33.4 32.0-36.0 [facility]WrdmhghIRVLWIUGYJ3992-29-78 20:10:00 Test Item Value Reference Range Interpretation Comments RDW (test code = RDW) 23.6 11.5-14.5 [facility] HospitalZzgmrxoEYQACNSMLN7922-55-28 20:10:00 Test Item Value Reference Range Interpretation Comments Platelet (test code = Platelet) 146 133-450 [facility] HospitalUnoicalOTWHZBZJAV7193-83-40 20:10:00 Test Item Value Reference Range Interpretation Comments MPV (test code = MPV) 8.0 7.4-10.4 [place] 841442-07-17 20:10:00 Test Item Value Reference Range Interpretation Comments Plt Morph (test code = Normal (12/14/21 3:10 Plt Morph) PM) [facility] HospitalMdsxvozLBBWNSLNFH2645-94-72 20:10:00 Test Item Value Reference Range Interpretation Comments Segs (test code = Segs) 67.4 45.0-75.0 [facility] HospitalGodcyahRNKXIPOLPD0164-04-31 20:10:00 Test Item Value Reference Range Interpretation Comments Lymphocytes (test code = Lymphocytes) 12.8 20.0-40.0 [place] 841442-07-17 20:10:00 Test Item Value Reference Range Interpretation Comments Monocytes (test code = Monocytes) 15.1 2.0-12.0 [facility] HospitalQgllnyfEIKSURYSXB4283-45-64 20:10:00 Test Item Value Reference Range Interpretation Comments Eosinophils (test code = 4.1 See_Comment [A utomated message] The Eosinophils) system which ge nerated this result tra nsmitted reference range : <=4.0. The reference r samantha was not used to int erpret this result as normal/abnormal . [facility] HospitalCgyieuwUOFJOWLRCT2534-11-99 20:10:00 Test Item Value Reference Range Interpretation Comments Basophils (test code = 0.6 See_Comment [Aut omated message] The Basophils) system which ge nerated this result tra nsmitted reference range : <=1.0. The reference r samantha was not used to int erpret this result as normal/abnormal . [facility] HospitalDugxmeiPCMCBWDXBW5666-20-16 20:10:00 Test Item Value Reference Range Interpretation Comments Neutrophils # (test code = Neutrophils 2.9 1.5-8.1 #) [place] 841442-07-17 20:10:00 Test Item Value Reference Range Interpretation Comments Lymphocytes # (test code = Lymphocytes 0.5 1.0-5.5 #) [facility] HospitalVjrlbacEKDRNNCSUJ8754-20-25 20:10:00 Test Item Value Reference Range Interpretation Comments Monocytes # (test code 0.6 See_Comment [Aut omated message] The = Monocytes #) system which generated this result tra nsmitted reference range : <=0.8. The reference r samantha was not used to int erpret this result as normal/abnormal . [facility] HospitalXpjsdmtFTRJBTARKK4159-39-66 20:10:00 Test Item Value Reference Range Interpretation Comments Eosinophils # (test code 0.2 See_Comment [A utomated message] The = Eosinophils #) system whic h generated this result tra nsmitted reference range : <=0.5. The reference r samantha was not used to int erpret this result as normal/abnormal . [facility] HospitalJmrptimSSPBCRWHVM9381-26-01 20:10:00 Test Item Value Reference Range Interpretation Comments Anisocyte (test code = 1+ *ABN*(12/14/21 Anisocyte) 3:10 PM) [place] 841442-07-17 20:10:00 Test Item Value Reference Range Interpretation Comments Macrocyte (test code = 1+ *ABN*(12/14/21 Macrocyte) 3:10 PM) [facility]GmnohcdKYJXTIXOFM7113-04-11 20:10:00 Test Item Value Reference Range Interpretation Comments Coronavirus (COVID-19) Detected MANUEL (test code = 4*ABN*(12/14/21 3:10 Coronavirus (COVID-19) PM) MANUEL) [facility] HospitalCARDIAC [id number] 20:10:00 Test Item Value Reference Range Interpretation Comments HS Troponin I Baseline (test code = HS 340 Troponin I Baseline) [facility] [id number] 20:10:00 Test Item Value Reference Range Interpretation Comments Glucose Lvl (test code = Glucose Lvl) 60 70-99 [facility]2022-07-17 20:10:00 Test Item Value Reference Range Interpretation Comments BUN (test code = BUN) 35 7-22 [facility]2022-07-17 20:10:00 Test Item Value Reference Range Interpretation Comments Creatinine Lvl (test code = Creatinine 6.10 0.50-1.40 Lvl) [facility] [id number] 20:10:00 Test Item Value Reference Range Interpretation Comments Sodium Lvl (test code = Sodium Lvl) 139 135-145 [facility]2022-07-17 20:10:00 Test Item Value Reference Range Interpretation Comments Potassium Lvl (test code = Potassium 3.1 3.5-5.1 Lvl) [facility]2022-07-17 20:10:00 Test Item Value Reference Range Interpretation Comments Chloride Lvl (test code = Chloride Lvl) 105 95-109 [facility]2022-07-17 20:10:00 Test Item Value Reference Range Interpretation Comments CO2 (test code = CO2) 28 24-32 [facility] [id number] 20:10:00 Test Item Value Reference Range Interpretation Comments Calcium Lvl (test code = Calcium Lvl) 8.1 8.5-10.5 [facility]2022-07-17 20:10:00 Test Item Value Reference Range Interpretation Comments Total Protein (test code = Total 5.8 6.4-8.4 Protein) [facility]2022-07-17 20:10:00 Test Item Value Reference Range Interpretation Comments Albumin Lvl (test code = Albumin Lvl) 2.6 3.5-5.0 [email or web address] [id number] 20:10:00 Test Item Value Reference Range Interpretation Comments ALT (test code = ALT) 74 See_Comment [Auto mated message] The system which ge nerated this result transmit swathi reference range : <=65. The reference range was not used to interpr et this result as deny l/abnormal. [facility] [employer] [id number] 20:10:00 Test Item Value Reference Range Interpretation Comments AST (test code = AST) 117 See_Comment [Auto mated message] The system which ge nerated this result transmit swathi reference range : <=37. The reference range was not used to interpr et this result as deny l/abnormal. [facility] [employer] [id number] 20:10:00 Test Item Value Reference Range Interpretation Comments Alk Phos (test code = Alk Phos) 241 39-136 [facility] [employer] [id number] 20:10:00 Test Item Value Reference Range Interpretation Comments Bili Total (test code = Bili Total) 0.8 0.2-1.3 [facility] [id number] 20:10:00 Test Item Value Reference Range Interpretation Comments AGAP (test code = AGAP) 9.1 10.0-20.0 [facility] [employer] [id number] 20:10:00 Test Item Value Reference Range Interpretation Comments B/C Ratio (test code = B/C Ratio) 6 1 6-25 [facility] [id number] 20:10:00 Test Item Value Reference Range Interpretation Comments Globulin (test code = Globulin) 3.2 2.7-4.2 [facility] [employer] [id number] 20:10:00 Test Item Value Reference Range Interpretation Comments A/G Ratio (test code = A/G Ratio) 0.8 1 0.7-1.6 [facility] [employer] [id number] 20:10:00 Test Item Value Reference Range Interpretation Comments eGFR (test code = eGFR) 9 [facility] CenterLywhjgkEXXRPEDPFK6213-19-69 20:10:00 Test Item Value Reference Range Interpretation Comments WBC (test code = WBC) 4.3 3.7-10.4 [facility] HospitalOwjfdhgGENYFWOTTH7642-27-41 20:10:00 Test Item Value Reference Range Interpretation Comments RBC (test code = RBC) 2.17 4.70-6.10 [place] 841442-07-17 20:10:00 Test Item Value Reference Range Interpretation Comments Hgb (test code = Hgb) 7.7 14.0-18.0 [place] 841442-07-17 20:10:00 Test Item Value Reference Range Interpretation Comments Hct (test code = Hct) 22.9 42.0-54.0 [facility] HospitalIdzfwliYRQNXPZGJN3405-24-90 20:10:00 Test Item Value Reference Range Interpretation Comments MCV (test code = MCV) 105.9 80.0-94.0 [place] 841442-07-17 20:10:00 Test Item Value Reference Range Interpretation Comments MCH (test code = MCH) 35.4 pg 27.0-31.0 [facility] HospitalDyhceyaZXEEJAACSU1719-86-16 20:10:00 Test Item Value Reference Range Interpretation Comments MCHC (test code = MCHC) 33.4 32.0-36.0 [facility] HospitalSmywoijWTIPUEJZQO2405-08-97 20:10:00 Test Item Value Reference Range Interpretation Comments RDW (test code = RDW) 23.6 11.5-14.5 [facility] HospitalRylintmHVUXBTHWAQ1586-67-48 20:10:00 Test Item Value Reference Range Interpretation Comments Platelet (test code = Platelet) 146 133-450 [facility] HospitalIzjrsfzFYVBZJOQIV4612-41-63 20:10:00 Test Item Value Reference Range Interpretation Comments MPV (test code = MPV) 8.0 7.4-10.4 [facility] HospitalEszchdqIJFTXQHHZB2034-13-26 20:10:00 Test Item Value Reference Range Interpretation Comments Plt Morph (test code = Normal (12/14/21 3:10 Plt Morph) PM) [facility] HospitalVxfjhgdWYKLGVULBI8337-51-17 20:10:00 Test Item Value Reference Range Interpretation Comments Segs (test code = Segs) 67.4 45.0-75.0 [place] 841442-07-17 20:10:00 Test Item Value Reference Range Interpretation Comments Lymphocytes (test code = Lymphocytes) 12.8 20.0-40.0 [place] 841442-07-17 20:10:00 Test Item Value Reference Range Interpretation Comments Monocytes (test code = Monocytes) 15.1 2.0-12.0 [facility] HospitalUcwygiwTNEVTTMOWF0163-36-84 20:10:00 Test Item Value Reference Range Interpretation Comments Eosinophils (test code = 4.1 See_Comment [A utomated message] The Eosinophils) system which ge nerated this result tra nsmitted reference range : <=4.0. The reference r samantha was not used to int erpret this result as normal/abnormal . [place] 841442-07-17 20:10:00 Test Item Value Reference Range Interpretation Comments Basophils (test code = 0.6 See_Comment [Aut omated message] The Basophils) system which ge nerated this result tra nsmitted reference range : <=1.0. The reference r samantha was not used to int erpret this result as normal/abnormal . [place] 841442-07-17 20:10:00 Test Item Value Reference Range Interpretation Comments Neutrophils # (test code = Neutrophils 2.9 1.5-8.1 #) [place] 841442-07-17 20:10:00 Test Item Value Reference Range Interpretation Comments Lymphocytes # (test code = Lymphocytes 0.5 1.0-5.5 #) [facility] HospitalItecyxfTATMVDJTQE9650-55-45 20:10:00 Test Item Value Reference Range Interpretation Comments Monocytes # (test code 0.6 See_Comment [Aut omated message] The = Monocytes #) system which generated this result tra nsmitted reference range : <=0.8. The reference r samantha was not used to int erpret this result as normal/abnormal . [place] 841442-07-17 20:10:00 Test Item Value Reference Range Interpretation Comments Eosinophils # (test code 0.2 See_Comment [A utomated message] The = Eosinophils #) system whic h generated this result tra nsmitted reference range : <=0.5. The reference r samantha was not used to int erpret this result as normal/abnormal . [place] 841442-07-17 20:10:00 Test Item Value Reference Range Interpretation Comments Anisocyte (test code = 1+ *ABN*(12/14/21 Anisocyte) 3:10 PM) [place] 841442-07-17 20:10:00 Test Item Value Reference Range Interpretation Comments Macrocyte (test code = 1+ *ABN*(12/14/21 Macrocyte) 3:10 PM) [facility] HospitalWcxrmazFQFNKZINJJ1097-77-63 20:10:00 Test Item Value Reference Range Interpretation Comments Coronavirus (COVID-19) Detected MANUEL (test code = 4*ABN*(12/14/21 3:10 Coronavirus (COVID-19) PM) MANUEL) [facility] AND [id number] 01:43:00 Test Item Value Reference Range Interpretation Comments Occult Bld Stl (test Negative (12/03/21 8:43 code = Occult Bld Stl) PM) [facility] AND [id number] 01:43:00 Test Item Value Reference Range Interpretation Comments Occult Bld Stl (test Negative (12/03/21 8:43 code = Occult Bld Stl) PM) [facility] AND [id number] 01:43:00 Test Item Value Reference Range Interpretation Comments Occult Bld Stl (test Negative (12/03/21 8:43 code = Occult Bld Stl) PM) [facility] AND [id number] 01:43:00 Test Item Value Reference Range Interpretation Comments Occult Bld Stl (test Negative (12/03/21 8:43 code = Occult Bld Stl) PM) [facility] [id number] 01:29:00 Test Item Value Reference Range Interpretation Comments RBC product (test code Product available = RBC product) 2(12/03/21 8:29 PM) [facility] [id number] 01:29:00 Test Item Value Reference Range Interpretation Comments RBC product (test code Product available = RBC product) 2(12/03/21 8:29 PM) [facility] [id number] 01:29:00 Test Item Value Reference Range Interpretation Comments RBC product (test code Product available = RBC product) 2(12/03/21 8:29 PM) [facility] [id number] 01:29:00 Test Item Value Reference Range Interpretation Comments RBC product (test code Product available = RBC product) 2(12/03/21 8:29 PM) [facility] [id number] 00:36:00 Test Item Value Reference Range Interpretation Comments ABO/Rh (test code = ABO/Rh) AB POS [facility] [id number] 00:36:00 Test Item Value Reference Range Interpretation Comments Antibody Scrn (test Negative (12/03/21 7:36 code = Antibody Scrn) PM) [facility]2022-07-07 00:36:00 Test Item Value Reference Range Interpretation Comments Glucose Lvl (test code = Glucose Lvl) 143 70-99 [facility] [id number] 00:36:00 Test Item Value Reference Range Interpretation Comments BUN (test code = BUN) 39 7-22 [facility] [id number] 00:36:00 Test Item Value Reference Range Interpretation Comments Creatinine Lvl (test code = Creatinine 5.46 0.50-1.40 Lvl) [facility]2022-07-07 00:36:00 Test Item Value Reference Range Interpretation Comments Sodium Lvl (test code = Sodium Lvl) 136 135-145 [facility] [id number] 00:36:00 Test Item Value Reference Range Interpretation Comments Potassium Lvl (test code = Potassium 4.2 3.5-5.1 Lvl) [facility] [id number] 00:36:00 Test Item Value Reference Range Interpretation Comments Chloride Lvl (test code = Chloride Lvl) 100 95-109 [facility] [id number] 00:36:00 Test Item Value Reference Range Interpretation Comments CO2 (test code = CO2) 27 24-32 [facility] [id number] 00:36:00 Test Item Value Reference Range Interpretation Comments Calcium Lvl (test code = Calcium Lvl) 8.9 8.5-10.5 [facility] [id number] 00:36:00 Test Item Value Reference Range Interpretation Comments AGAP (test code = AGAP) 13.2 10.0-20.0 [facility] [id number] 00:36:00 Test Item Value Reference Range Interpretation Comments eGFR (test code = eGFR) 10 [facility]HMQQDCJUAM7243-85-58 00:36:00 Test Item Value Reference Range Interpretation Comments WBC (test code = WBC) 2.5 3.7-10.4 [facility] HospitalKjwuoszPEMBUHNYYQ0560-70-45 00:36:00 Test Item Value Reference Range Interpretation Comments RBC (test code = RBC) 1.97 4.70-6.10 [facility] HospitalVzfwczcKNNOXCMGWP7727-24-29 00:36:00 Test Item Value Reference Range Interpretation Comments Hgb (test code = Hgb) 7.1 14.0-18.0 [facility] HospitalHdkgiwkZSLPHNECJQ5232-14-10 00:36:00 Test Item Value Reference Range Interpretation Comments Hct (test code = Hct) 20.6 42.0-54.0 [facility] HospitalUvxysxuZACLLTTXLK0153-28-38 00:36:00 Test Item Value Reference Range Interpretation Comments MCV (test code = MCV) 105.0 80.0-94.0 [facility] HospitalAewojagHFYXPKEWJT8405-48-19 00:36:00 Test Item Value Reference Range Interpretation Comments MCH (test code = MCH) 36.2 pg 27.0-31.0 [facility] HospitalYaytprdMZWTKSUTDZ7309-66-62 00:36:00 Test Item Value Reference Range Interpretation Comments MCHC (test code = MCHC) 34.5 32.0-36.0 [facility] HospitalSjipkjdWIJCTRQPAG8148-84-93 00:36:00 Test Item Value Reference Range Interpretation Comments RDW (test code = RDW) 21.1 11.5-14.5 [facility] HospitalGcbmkvqXIQKVGMCHJ6893-68-17 00:36:00 Test Item Value Reference Range Interpretation Comments Platelet (test code = Platelet) 136 133-450 [facility] HospitalSrgtqnuHRTYZOBHVU6033-01-59 00:36:00 Test Item Value Reference Range Interpretation Comments MPV (test code = MPV) 8.7 7.4-10.4 [facility] HospitalUhmcztjVXGRCTCESP9539-85-85 00:36:00 Test Item Value Reference Range Interpretation Comments Segs (test code = Segs) 59.5 45.0-75.0 [place] 841442-07-07 00:36:00 Test Item Value Reference Range Interpretation Comments Lymphocytes (test code = Lymphocytes) 25.2 20.0-40.0 [facility] HospitalRgmohwkNFXQOWDZMF7157-46-73 00:36:00 Test Item Value Reference Range Interpretation Comments Monocytes (test code = Monocytes) 12.5 2.0-12.0 [facility] HospitalMccqwpuBBPWMLMEPB3503-42-76 00:36:00 Test Item Value Reference Range Interpretation Comments Eosinophils (test code = 2.1 See_Comment [A utomated message] The Eosinophils) system which ge nerated this result tra nsmitted reference range : <=4.0. The reference r samantha was not used to int erpret this result as normal/abnormal . [facility] HospitalAlnwjotIJCMOQFVNE2659-47-62 00:36:00 Test Item Value Reference Range Interpretation Comments Basophils (test code = 0.7 See_Comment [Aut omated message] The Basophils) system which ge nerated this result tra nsmitted reference range : <=1.0. The reference r samantha was not used to int erpret this result as normal/abnormal . [facility] HospitalMfvyfefUJXIITRPJD6404-39-29 00:36:00 Test Item Value Reference Range Interpretation Comments Neutrophils # (test code = Neutrophils 1.5 1.5-8.1 #) [facility] HospitalDuwyyazURUHZYROGX1555-55-62 00:36:00 Test Item Value Reference Range Interpretation Comments Lymphocytes # (test code = Lymphocytes 0.6 1.0-5.5 #) [facility] HospitalLkvnutsCYSYIXQMEO3330-56-69 00:36:00 Test Item Value Reference Range Interpretation Comments Monocytes # (test code 0.3 See_Comment [Aut omated message] The = Monocytes #) system which generated this result tra nsmitted reference range : <=0.8. The reference r samantha was not used to int erpret this result as normal/abnormal . [facility] HospitalErszczeXUJNRLFCTE8096-45-70 00:36:00 Test Item Value Reference Range Interpretation Comments Eosinophils # (test code 0.1 See_Comment [A utomated message] The = Eosinophils #) system whic h generated this result tra nsmitted reference range : <=0.5. The reference r samantha was not used to int erpret this result as normal/abnormal . [facility] [id number] 00:36:00 Test Item Value Reference Range Interpretation Comments ABO/Rh (test code = ABO/Rh) AB POS [facility] [id number] 00:36:00 Test Item Value Reference Range Interpretation Comments Antibody Scrn (test Negative (12/03/21 7:36 code = Antibody Scrn) PM) [facility] [id number] 00:36:00 Test Item Value Reference Range Interpretation Comments Glucose Lvl (test code = Glucose Lvl) 143 70-99 [place] 491452-07-07 00:36:00 Test Item Value Reference Range Interpretation Comments BUN (test code = BUN) 39 7-22 [place] 491452-07-07 00:36:00 Test Item Value Reference Range Interpretation Comments Creatinine Lvl (test code = Creatinine 5.46 0.50-1.40 Lvl) [place] 491452-07-07 00:36:00 Test Item Value Reference Range Interpretation Comments Sodium Lvl (test code = Sodium Lvl) 136 135-145 [place] 491452-07-07 00:36:00 Test Item Value Reference Range Interpretation Comments Potassium Lvl (test code = Potassium 4.2 3.5-5.1 Lvl) [place] 491452-07-07 00:36:00 Test Item Value Reference Range Interpretation Comments Chloride Lvl (test code = Chloride Lvl) 100 95-109 [place] 491452-07-07 00:36:00 Test Item Value Reference Range Interpretation Comments CO2 (test code = CO2) 27 24-32 [place] 491452-07-07 00:36:00 Test Item Value Reference Range Interpretation Comments Calcium Lvl (test code = Calcium Lvl) 8.9 8.5-10.5 [place] 491452-07-07 00:36:00 Test Item Value Reference Range Interpretation Comments AGAP (test code = AGAP) 13.2 10.0-20.0 [place] 491452-07-07 00:36:00 Test Item Value Reference Range Interpretation Comments eGFR (test code = eGFR) 10 [place] 841442-07-07 00:36:00 Test Item Value Reference Range Interpretation Comments WBC (test code = WBC) 2.5 3.7-10.4 [place] 841442-07-07 00:36:00 Test Item Value Reference Range Interpretation Comments RBC (test code = RBC) 1.97 4.70-6.10 [place] 841442-07-07 00:36:00 Test Item Value Reference Range Interpretation Comments Hgb (test code = Hgb) 7.1 14.0-18.0 [place] 841442-07-07 00:36:00 Test Item Value Reference Range Interpretation Comments Hct (test code = Hct) 20.6 42.0-54.0 [facility] HospitalQplvoyxFHJOYPCAPZ8476-16-84 00:36:00 Test Item Value Reference Range Interpretation Comments MCV (test code = MCV) 105.0 80.0-94.0 [facility] HospitalNsoehluBIQMCUKLNK8276-05-96 00:36:00 Test Item Value Reference Range Interpretation Comments MCH (test code = MCH) 36.2 pg 27.0-31.0 [facility] HospitalZxsxbdiJEVSPINYFB3641-22-38 00:36:00 Test Item Value Reference Range Interpretation Comments MCHC (test code = MCHC) 34.5 32.0-36.0 [facility] HospitalAsudcrlRUIOQRXCGO4179-21-00 00:36:00 Test Item Value Reference Range Interpretation Comments RDW (test code = RDW) 21.1 11.5-14.5 [facility] HospitalVomeqwqYFVCOSYSHQ8697-27-65 00:36:00 Test Item Value Reference Range Interpretation Comments Platelet (test code = Platelet) 136 133-450 [facility] HospitalOlcxpfoPJULJMRIYW4511-81-61 00:36:00 Test Item Value Reference Range Interpretation Comments MPV (test code = MPV) 8.7 7.4-10.4 [facility] HospitalAxcizupBPCWSTJTOV5359-03-45 00:36:00 Test Item Value Reference Range Interpretation Comments Segs (test code = Segs) 59.5 45.0-75.0 [facility] HospitalHivynztQDPLSSKUZQ7473-43-62 00:36:00 Test Item Value Reference Range Interpretation Comments Lymphocytes (test code = Lymphocytes) 25.2 20.0-40.0 [facility] HospitalMuyhdxsDUTXPRUCOZ5834-90-54 00:36:00 Test Item Value Reference Range Interpretation Comments Monocytes (test code = Monocytes) 12.5 2.0-12.0 [place] 841442-07-07 00:36:00 Test Item Value Reference Range Interpretation Comments Eosinophils (test code = 2.1 See_Comment [A utomated message] The Eosinophils) system which ge nerated this result tra nsmitted reference range : <=4.0. The reference r samantha was not used to int erpret this result as normal/abnormal . [facility] HospitalZsfmhnjATNBHWABVE1479-39-59 00:36:00 Test Item Value Reference Range Interpretation Comments Basophils (test code = 0.7 See_Comment [Aut omated message] The Basophils) system which ge nerated this result tra nsmitted reference range : <=1.0. The reference r samantha was not used to int erpret this result as normal/abnormal . [facility] HospitalNiwmeqsVVQZETYJTS1308-12-73 00:36:00 Test Item Value Reference Range Interpretation Comments Neutrophils # (test code = Neutrophils 1.5 1.5-8.1 #) [facility] HospitalDdmefljZYGHCMTDDP8461-70-92 00:36:00 Test Item Value Reference Range Interpretation Comments Lymphocytes # (test code = Lymphocytes 0.6 1.0-5.5 #) [facility] HospitalArwzdwnANIFJZDCBW1055-47-22 00:36:00 Test Item Value Reference Range Interpretation Comments Monocytes # (test code 0.3 See_Comment [Aut omated message] The = Monocytes #) system which generated this result tra nsmitted reference range : <=0.8. The reference r samantha was not used to int erpret this result as normal/abnormal . [facility] HospitalErsyagvQXYSWRPTJS3160-62-56 00:36:00 Test Item Value Reference Range Interpretation Comments Eosinophils # (test code 0.1 See_Comment [A utomated message] The = Eosinophils #) system whic h generated this result tra nsmitted reference range : <=0.5. The reference r samantha was not used to int erpret this result as normal/abnormal . [facility] [email or web address] [facility] [id number] 00:36:00 Test Item Value Reference Range Interpretation Comments ABO/Rh (test code = ABO/Rh) AB POS [facility] [email or web address] [facility] [id number] 00:36:00 Test Item Value Reference Range Interpretation Comments Antibody Scrn (test Negative (12/03/21 7:36 code = Antibody Scrn) PM) [email or web address] [id number] 00:36:00 Test Item Value Reference Range Interpretation Comments Glucose Lvl (test code = Glucose Lvl) 143 70-99 [facility] HospitalTask Spotting Inc[employer] [id number] 00:36:00 Test Item Value Reference Range Interpretation Comments BUN (test code = BUN) 39 7-22 [email or web address] [id number] 00:36:00 Test Item Value Reference Range Interpretation Comments Creatinine Lvl (test code = Creatinine 5.46 0.50-1.40 Lvl) [facility]2022-07-07 00:36:00 Test Item Value Reference Range Interpretation Comments Sodium Lvl (test code = Sodium Lvl) 136 135-145 [place] 491452-07-07 00:36:00 Test Item Value Reference Range Interpretation Comments Potassium Lvl (test code = Potassium 4.2 3.5-5.1 Lvl) [place] 491452-07-07 00:36:00 Test Item Value Reference Range Interpretation Comments Chloride Lvl (test code = Chloride Lvl) 100 95-109 [place] 491452-07-07 00:36:00 Test Item Value Reference Range Interpretation Comments CO2 (test code = CO2) 27 24-32 [place] 491452-07-07 00:36:00 Test Item Value Reference Range Interpretation Comments Calcium Lvl (test code = Calcium Lvl) 8.9 8.5-10.5 [place] 491452-07-07 00:36:00 Test Item Value Reference Range Interpretation Comments AGAP (test code = AGAP) 13.2 10.0-20.0 [place] 491452-07-07 00:36:00 Test Item Value Reference Range Interpretation Comments eGFR (test code = eGFR) 10 [facility] HospitalKoghwelQBWRZJELWV8346-05-60 00:36:00 Test Item Value Reference Range Interpretation Comments WBC (test code = WBC) 2.5 3.7-10.4 [place] 841442-07-07 00:36:00 Test Item Value Reference Range Interpretation Comments RBC (test code = RBC) 1.97 4.70-6.10 [place] 841442-07-07 00:36:00 Test Item Value Reference Range Interpretation Comments Hgb (test code = Hgb) 7.1 14.0-18.0 [place] [address]-07-07 00:36:00 Test Item Value Reference Range Interpretation Comments Hct (test code = Hct) 20.6 42.0-54.0 [place] 841442-07-07 00:36:00 Test Item Value Reference Range Interpretation Comments MCV (test code = MCV) 105.0 80.0-94.0 [place] 841442-07-07 00:36:00 Test Item Value Reference Range Interpretation Comments MCH (test code = MCH) 36.2 pg 27.0-31.0 [facility] HospitalCwwidxtKJGOOLSQZH5297-06-92 00:36:00 Test Item Value Reference Range Interpretation Comments MCHC (test code = MCHC) 34.5 32.0-36.0 [facility] HospitalZlvmskjTYDHWNALLD2472-74-95 00:36:00 Test Item Value Reference Range Interpretation Comments RDW (test code = RDW) 21.1 11.5-14.5 [facility] HospitalAytttdaNIVUFSCDMP1695-35-68 00:36:00 Test Item Value Reference Range Interpretation Comments Platelet (test code = Platelet) 136 133-450 [facility] HospitalHewspllLCWXDGMASP4612-72-94 00:36:00 Test Item Value Reference Range Interpretation Comments MPV (test code = MPV) 8.7 7.4-10.4 [facility] HospitalZptzczbUIGGRDCEBV3470-93-72 00:36:00 Test Item Value Reference Range Interpretation Comments Segs (test code = Segs) 59.5 45.0-75.0 [facility] HospitalBerzdrvZYOAIJNNCS3962-56-99 00:36:00 Test Item Value Reference Range Interpretation Comments Lymphocytes (test code = Lymphocytes) 25.2 20.0-40.0 [facility] HospitalNaiqiifQHXHBUMNAW6057-68-49 00:36:00 Test Item Value Reference Range Interpretation Comments Monocytes (test code = Monocytes) 12.5 2.0-12.0 [facility] HospitalGwpybciNBEAQOEWAU0196-86-63 00:36:00 Test Item Value Reference Range Interpretation Comments Eosinophils (test code = 2.1 See_Comment [A utomated message] The Eosinophils) system which ge nerated this result tra nsmitted reference range : <=4.0. The reference r samantha was not used to int erpret this result as normal/abnormal . [facility] HospitalOxmsagdDSSQGGRLBJ3196-17-41 00:36:00 Test Item Value Reference Range Interpretation Comments Basophils (test code = 0.7 See_Comment [Aut omated message] The Basophils) system which ge nerated this result tra nsmitted reference range : <=1.0. The reference r samantha was not used to int erpret this result as normal/abnormal . [facility] HospitalCcfufumCUTZPPKSIB0198-50-02 00:36:00 Test Item Value Reference Range Interpretation Comments Neutrophils # (test code = Neutrophils 1.5 1.5-8.1 #) [facility] HospitalNjcyldtTWCJYZDRQN2153-39-74 00:36:00 Test Item Value Reference Range Interpretation Comments Lymphocytes # (test code = Lymphocytes 0.6 1.0-5.5 #) [facility] HospitalScppdgoWFCCUWFUKD3407-29-33 00:36:00 Test Item Value Reference Range Interpretation Comments Monocytes # (test code 0.3 See_Comment [Aut omated message] The = Monocytes #) system which generated this result tra nsmitted reference range : <=0.8. The reference r samantha was not used to int erpret this result as normal/abnormal . [facility] HospitalVsklrxcDYZMSLNYWM1234-82-01 00:36:00 Test Item Value Reference Range Interpretation Comments Eosinophils # (test code 0.1 See_Comment [A utomated message] The = Eosinophils #) system whic h generated this result tra nsmitted reference range : <=0.5. The reference r samantha was not used to int erpret this result as normal/abnormal . [facility]nextSociety, Inc[employer] [facility] [id number] 00:36:00 Test Item Value Reference Range Interpretation Comments ABO/Rh (test code = ABO/Rh) AB POS [facility] [employer] [id number] 00:36:00 Test Item Value Reference Range Interpretation Comments Antibody Scrn (test Negative (12/03/21 7:36 code = Antibody Scrn) PM) [facility] [email or web address] [id number] 00:36:00 Test Item Value Reference Range Interpretation Comments Glucose Lvl (test code = Glucose Lvl) 143 70-99 [email or web address] [id number] 00:36:00 Test Item Value Reference Range Interpretation Comments BUN (test code = BUN) 39 7-22 [facility] [id number] 00:36:00 Test Item Value Reference Range Interpretation Comments Creatinine Lvl (test code = Creatinine 5.46 0.50-1.40 Lvl) [email or web address] [id number] 00:36:00 Test Item Value Reference Range Interpretation Comments Sodium Lvl (test code = Sodium Lvl) 136 135-145 [email or web address] [id number] 00:36:00 Test Item Value Reference Range Interpretation Comments Potassium Lvl (test code = Potassium 4.2 3.5-5.1 Lvl) [facility]2022-07-07 00:36:00 Test Item Value Reference Range Interpretation Comments Chloride Lvl (test code = Chloride Lvl) 100 95-109 [place] 491452-07-07 00:36:00 Test Item Value Reference Range Interpretation Comments CO2 (test code = CO2) 27 24-32 [place] 491452-07-07 00:36:00 Test Item Value Reference Range Interpretation Comments Calcium Lvl (test code = Calcium Lvl) 8.9 8.5-10.5 [place] 491452-07-07 00:36:00 Test Item Value Reference Range Interpretation Comments AGAP (test code = AGAP) 13.2 10.0-20.0 [place] 491452-07-07 00:36:00 Test Item Value Reference Range Interpretation Comments eGFR (test code = eGFR) 10 [facility] HospitalBjkecgqFVWSTLSFQH3375-16-97 00:36:00 Test Item Value Reference Range Interpretation Comments WBC (test code = WBC) 2.5 3.7-10.4 [place] 841442-07-07 00:36:00 Test Item Value Reference Range Interpretation Comments RBC (test code = RBC) 1.97 4.70-6.10 [place] 841442-07-07 00:36:00 Test Item Value Reference Range Interpretation Comments Hgb (test code = Hgb) 7.1 14.0-18.0 [place] 841442-07-07 00:36:00 Test Item Value Reference Range Interpretation Comments Hct (test code = Hct) 20.6 42.0-54.0 [place] 841442-07-07 00:36:00 Test Item Value Reference Range Interpretation Comments MCV (test code = MCV) 105.0 80.0-94.0 [place] 841442-07-07 00:36:00 Test Item Value Reference Range Interpretation Comments MCH (test code = MCH) 36.2 pg 27.0-31.0 [place] 841442-07-07 00:36:00 Test Item Value Reference Range Interpretation Comments MCHC (test code = MCHC) 34.5 32.0-36.0 [place] 841442-07-07 00:36:00 Test Item Value Reference Range Interpretation Comments RDW (test code = RDW) 21.1 11.5-14.5 [place] 841442-07-07 00:36:00 Test Item Value Reference Range Interpretation Comments Platelet (test code = Platelet) 136 133-450 [facility] HospitalHvwboriNDQFSCBPRR4328-91-14 00:36:00 Test Item Value Reference Range Interpretation Comments MPV (test code = MPV) 8.7 7.4-10.4 [facility] HospitalTgpndpiBFJTTPJAZX5840-05-16 00:36:00 Test Item Value Reference Range Interpretation Comments Segs (test code = Segs) 59.5 45.0-75.0 [place] 841442-07-07 00:36:00 Test Item Value Reference Range Interpretation Comments Lymphocytes (test code = Lymphocytes) 25.2 20.0-40.0 [place] 841442-07-07 00:36:00 Test Item Value Reference Range Interpretation Comments Monocytes (test code = Monocytes) 12.5 2.0-12.0 [place] 841442-07-07 00:36:00 Test Item Value Reference Range Interpretation Comments Eosinophils (test code = 2.1 See_Comment [A utomated message] The Eosinophils) system which ge nerated this result tra nsmitted reference range : <=4.0. The reference r samantha was not used to int erpret this result as normal/abnormal . [facility] HospitalOskbfjtVOSCPBFXAM9981-48-71 00:36:00 Test Item Value Reference Range Interpretation Comments Basophils (test code = 0.7 See_Comment [Aut omated message] The Basophils) system which ge nerated this result tra nsmitted reference range : <=1.0. The reference r samantha was not used to int erpret this result as normal/abnormal . [facility] HospitalUfwijqaCSZKFFRZVV3026-59-17 00:36:00 Test Item Value Reference Range Interpretation Comments Neutrophils # (test code = Neutrophils 1.5 1.5-8.1 #) [place] 841442-07-07 00:36:00 Test Item Value Reference Range Interpretation Comments Lymphocytes # (test code = Lymphocytes 0.6 1.0-5.5 #) [place] 841442-07-07 00:36:00 Test Item Value Reference Range Interpretation Comments Monocytes # (test code 0.3 See_Comment [Aut omated message] The = Monocytes #) system which generated this result tra nsmitted reference range : <=0.8. The reference r samantha was not used to int erpret this result as normal/abnormal . [facility] HospitalZvslkacNGHTEKMQAJ4417-47-03 00:36:00 Test Item Value Reference Range Interpretation Comments Eosinophils # (test code 0.1 See_Comment [A utomated message] The = Eosinophils #) system whic h generated this result tra nsmitted reference range : <=0.5. The reference r samantha was not used to int erpret this result as normal/abnormal . [facility]2022-06-29 09:09:00 Test Item Value Reference Range Interpretation Comments Ferritin Lvl (test code = Ferritin Lvl) 1543 22-275 [facility]2022-06-29 09:09:00 Test Item Value Reference Range Interpretation Comments Glucose Lvl (test code = Glucose Lvl) 288 70-99 [place] 491452-06-29 09:09:00 Test Item Value Reference Range Interpretation Comments BUN (test code = BUN) 40 7-22 [place] 491452-06-29 09:09:00 Test Item Value Reference Range Interpretation Comments Creatinine Lvl (test code = Creatinine 6.23 0.50-1.40 Lvl) [place] 491452-06-29 09:09:00 Test Item Value Reference Range Interpretation Comments Sodium Lvl (test code = Sodium Lvl) 134 135-145 [place] 491452-06-29 09:09:00 Test Item Value Reference Range Interpretation Comments Potassium Lvl (test code = Potassium 4.5 3.5-5.1 Lvl) [place] 491452-06-29 09:09:00 Test Item Value Reference Range Interpretation Comments Chloride Lvl (test code = Chloride Lvl) 96 95-109 [place] 491452-06-29 09:09:00 Test Item Value Reference Range Interpretation Comments CO2 (test code = CO2) 29 24-32 [place] 491452-06-29 09:09:00 Test Item Value Reference Range Interpretation Comments AGAP (test code = AGAP) 13.5 10.0-20.0 [place] 491452-06-29 09:09:00 Test Item Value Reference Range Interpretation Comments Calcium Lvl (test code = Calcium Lvl) 9.1 8.5-10.5 [place] 491452-06-29 09:09:00 Test Item Value Reference Range Interpretation Comments B/C Ratio (test code = B/C Ratio) 6 1 6-25 [place] 491452-06-29 09:09:00 Test Item Value Reference Range Interpretation Comments Total Protein (test code = Total 6.3 6.4-8.4 Protein) [place] 491452-06-29 09:09:00 Test Item Value Reference Range Interpretation Comments Albumin Lvl (test code = Albumin Lvl) 2.5 3.5-5.0 [place] [address]-06-29 09:09:00 Test Item Value Reference Range Interpretation Comments Globulin (test code = Globulin) 3.8 2.7-4.2 [place] 491452-06-29 09:09:00 Test Item Value Reference Range Interpretation Comments A/G Ratio (test code = A/G Ratio) 0.7 1 0.7-1.6 [place] 491452-06-29 09:09:00 Test Item Value Reference Range Interpretation Comments ALT (test code = ALT) 38 See_Comment [Auto mated message] The system which ge nerated this result transmit swathi reference range : <=65. The reference range was not used to interpr et this result as deny l/abnormal. [place] 491452-06-29 09:09:00 Test Item Value Reference Range Interpretation Comments AST (test code = AST) 31 See_Comment [Auto mated message] The system which ge nerated this result transmit swathi reference range : <=37. The reference range was not used to interpr et this result as deny l/abnormal. [place] 491452-06-29 09:09:00 Test Item Value Reference Range Interpretation Comments Alk Phos (test code = Alk Phos) 357 39-136 [place] 491452-06-29 09:09:00 Test Item Value Reference Range Interpretation Comments Bili Total (test code = Bili Total) 1.0 0.2-1.3 [place] 491452-06-29 09:09:00 Test Item Value Reference Range Interpretation Comments eGFR (test code = eGFR) 8 [facility]2022-06-29 09:09:00 Test Item Value Reference Range Interpretation Comments Magnesium Lvl (test code = Magnesium 2.0 1.8-2.4 Lvl) [facility]2022-06-29 09:09:00 Test Item Value Reference Range Interpretation Comments LDH (test code = LDH) 251 98-192 [facility]2022-06-29 09:09:00 Test Item Value Reference Range Interpretation Comments Procalcitonin Lvl (test 0.51 See_Comment [Au tomated message] code = Procalcitonin Lvl) e system which generated this result transmitted ref erence range: <=0.10. The reference range was not used to interpr et this result as normal/abnormal . [facility] HospitalGbtwkkrCAQZRTMBNO9149-25-04 09:09:00 Test Item Value Reference Range Interpretation Comments D-Dimer (test code = D-Dimer) 5.06 [place] 841442-06-29 09:09:00 Test Item Value Reference Range Interpretation Comments WBC (test code = WBC) 4.8 3.7-10.4 [place] 841442-06-29 09:09:00 Test Item Value Reference Range Interpretation Comments RBC (test code = RBC) 2.14 4.70-6.10 [place] 841442-06-29 09:09:00 Test Item Value Reference Range Interpretation Comments Hgb (test code = Hgb) 7.7 14.0-18.0 [place] 841442-06-29 09:09:00 Test Item Value Reference Range Interpretation Comments Hct (test code = Hct) 22.8 42.0-54.0 [place] 841442-06-29 09:09:00 Test Item Value Reference Range Interpretation Comments MCV (test code = MCV) 106.5 80.0-94.0 [place] 841442-06-29 09:09:00 Test Item Value Reference Range Interpretation Comments MCH (test code = MCH) 36.1 pg 27.0-31.0 [place] 841442-06-29 09:09:00 Test Item Value Reference Range Interpretation Comments MCHC (test code = MCHC) 33.9 32.0-36.0 [place] [address]-06-29 09:09:00 Test Item Value Reference Range Interpretation Comments RDW (test code = RDW) 21.8 11.5-14.5 [place] 841442-06-29 09:09:00 Test Item Value Reference Range Interpretation Comments Platelet (test code = Platelet) 176 133-450 [place] 841442-06-29 09:09:00 Test Item Value Reference Range Interpretation Comments MPV (test code = MPV) 8.2 7.4-10.4 [place] 841442-06-29 09:09:00 Test Item Value Reference Range Interpretation Comments Segs (test code = Segs) 83.6 45.0-75.0 [place] 841442-06-29 09:09:00 Test Item Value Reference Range Interpretation Comments Lymphocytes (test code = Lymphocytes) 10.7 20.0-40.0 [place] 841442-06-29 09:09:00 Test Item Value Reference Range Interpretation Comments Monocytes (test code = Monocytes) 4.9 2.0-12.0 [facility] HospitalKalxckgWPUGXOKHRX9934-68-32 09:09:00 Test Item Value Reference Range Interpretation Comments Eosinophils (test code = 0.4 See_Comment [A utomated message] The Eosinophils) system which ge nerated this result tra nsmitted reference range : <=4.0. The reference r samantha was not used to int erpret this result as normal/abnormal . [place] 841442-06-29 09:09:00 Test Item Value Reference Range Interpretation Comments Basophils (test code = 0.4 See_Comment [Aut omated message] The Basophils) system which ge nerated this result tra nsmitted reference range : <=1.0. The reference r samantha was not used to int erpret this result as normal/abnormal . [facility] HospitalEfxkkeuSMDXPPGHSH3316-65-64 09:09:00 Test Item Value Reference Range Interpretation Comments Neutrophils # (test code = Neutrophils 4.0 1.5-8.1 #) [facility] HospitalBjhlnemXTRFXGDICG7896-32-04 09:09:00 Test Item Value Reference Range Interpretation Comments Lymphocytes # (test code = Lymphocytes 0.5 1.0-5.5 #) [place] 841442-06-29 09:09:00 Test Item Value Reference Range Interpretation Comments Monocytes # (test code 0.2 See_Comment [Aut omated message] The = Monocytes #) system which generated this result tra nsmitted reference range : <=0.8. The reference r samantha was not used to int erpret this result as normal/abnormal . [facility] HospitalBmcliniBXTPHXQVTW3784-05-79 09:09:00 Test Item Value Reference Range Interpretation Comments Macrocyte (test code = 1+ *ABN*(11/26/21 Macrocyte) 4:09 AM) [facility]AmgvvtgKQPWLYTPNX2432-38-76 09:09:00 Test Item Value Reference Range Interpretation Comments Interleukin 6 (test code = Interleukin 14.71 6) [place] 066822-06-29 09:09:00 Test Item Value Reference Range Interpretation Comments C-REACTIVE PROTEIN (test code = 95.9 C-REACTIVE PROTEIN) [facility]2022-06-29 09:09:00 Test Item Value Reference Range Interpretation Comments Ferritin Lvl (test code = Ferritin Lvl) 1543 22275 [facility]2022-06-29 09:09:00 Test Item Value Reference Range Interpretation Comments Glucose Lvl (test code = Glucose Lvl) 288 70-99 [facility]2022-06-29 09:09:00 Test Item Value Reference Range Interpretation Comments BUN (test code = BUN) 40 7-22 [facility]2022-06-29 09:09:00 Test Item Value Reference Range Interpretation Comments Creatinine Lvl (test code = Creatinine 6.23 0.50-1.40 Lvl) [facility]2022-06-29 09:09:00 Test Item Value Reference Range Interpretation Comments Sodium Lvl (test code = Sodium Lvl) 134 135-145 [place] 491452-06-29 09:09:00 Test Item Value Reference Range Interpretation Comments Potassium Lvl (test code = Potassium 4.5 3.5-5.1 Lvl) [place] 491452-06-29 09:09:00 Test Item Value Reference Range Interpretation Comments Chloride Lvl (test code = Chloride Lvl) 96 95-109 [place] 491452-06-29 09:09:00 Test Item Value Reference Range Interpretation Comments CO2 (test code = CO2) 29 24-32 [place] 491452-06-29 09:09:00 Test Item Value Reference Range Interpretation Comments AGAP (test code = AGAP) 13.5 10.0-20.0 [place] 491452-06-29 09:09:00 Test Item Value Reference Range Interpretation Comments Calcium Lvl (test code = Calcium Lvl) 9.1 8.5-10.5 [place] 491452-06-29 09:09:00 Test Item Value Reference Range Interpretation Comments B/C Ratio (test code = B/C Ratio) 6 1 6-25 [place] [address]-06-29 09:09:00 Test Item Value Reference Range Interpretation Comments Total Protein (test code = Total 6.3 6.4-8.4 Protein) [place] 491452-06-29 09:09:00 Test Item Value Reference Range Interpretation Comments Albumin Lvl (test code = Albumin Lvl) 2.5 3.5-5.0 [place] 491452-06-29 09:09:00 Test Item Value Reference Range Interpretation Comments Globulin (test code = Globulin) 3.8 2.7-4.2 [place] 491452-06-29 09:09:00 Test Item Value Reference Range Interpretation Comments A/G Ratio (test code = A/G Ratio) 0.7 1 0.7-1.6 [place] 491452-06-29 09:09:00 Test Item Value Reference Range Interpretation Comments ALT (test code = ALT) 38 See_Comment [Auto mated message] The system which ge nerated this result transmit swathi reference range : <=65. The reference range was not used to interpr et this result as deny l/abnormal. [place] 491452-06-29 09:09:00 Test Item Value Reference Range Interpretation Comments AST (test code = AST) 31 See_Comment [Auto mated message] The system which ge nerated this result transmit swathi reference range : <=37. The reference range was not used to interpr et this result as deny l/abnormal. [place] 491452-06-29 09:09:00 Test Item Value Reference Range Interpretation Comments Alk Phos (test code = Alk Phos) 357 39-136 [place] 491452-06-29 09:09:00 Test Item Value Reference Range Interpretation Comments Bili Total (test code = Bili Total) 1.0 0.2-1.3 [place] 491452-06-29 09:09:00 Test Item Value Reference Range Interpretation Comments eGFR (test code = eGFR) 8 [facility]2022-06-29 09:09:00 Test Item Value Reference Range Interpretation Comments Magnesium Lvl (test code = Magnesium 2.0 1.8-2.4 Lvl) [place] 491452-06-29 09:09:00 Test Item Value Reference Range Interpretation Comments LDH (test code = LDH) 251 98-192 [facility]2022-06-29 09:09:00 Test Item Value Reference Range Interpretation Comments Procalcitonin Lvl (test 0.51 See_Comment [Au tomated message] code = Procalcitonin Lvl) e system which generated this result transmitted ref erence range: <=0.10. The reference range was not used to interpr et this result as normal/abnormal . [place] 841442-06-29 09:09:00 Test Item Value Reference Range Interpretation Comments D-Dimer (test code = D-Dimer) 5.06 [place] 14214-06-29 09:09:00 Test Item Value Reference Range Interpretation Comments WBC (test code = WBC) 4.8 3.7-10.4 [place] 841442-06-29 09:09:00 Test Item Value Reference Range Interpretation Comments RBC (test code = RBC) 2.14 4.70-6.10 [place] 841442-06-29 09:09:00 Test Item Value Reference Range Interpretation Comments Hgb (test code = Hgb) 7.7 14.0-18.0 [place] [address]-06-29 09:09:00 Test Item Value Reference Range Interpretation Comments Hct (test code = Hct) 22.8 42.0-54.0 [place] [address]-06-29 09:09:00 Test Item Value Reference Range Interpretation Comments MCV (test code = MCV) 106.5 80.0-94.0 [place] [address]-06-29 09:09:00 Test Item Value Reference Range Interpretation Comments MCH (test code = MCH) 36.1 pg 27.0-31.0 [place] 841442-06-29 09:09:00 Test Item Value Reference Range Interpretation Comments MCHC (test code = MCHC) 33.9 32.0-36.0 [place] 841442-06-29 09:09:00 Test Item Value Reference Range Interpretation Comments RDW (test code = RDW) 21.8 11.5-14.5 [place] 841442-06-29 09:09:00 Test Item Value Reference Range Interpretation Comments Platelet (test code = Platelet) 176 133-450 [facility] HospitalUaxorrtPEAJFWLLKO0252-30-09 09:09:00 Test Item Value Reference Range Interpretation Comments MPV (test code = MPV) 8.2 7.4-10.4 [place] 841442-06-29 09:09:00 Test Item Value Reference Range Interpretation Comments Segs (test code = Segs) 83.6 45.0-75.0 [place] 841442-06-29 09:09:00 Test Item Value Reference Range Interpretation Comments Lymphocytes (test code = Lymphocytes) 10.7 20.0-40.0 [place] 841442-06-29 09:09:00 Test Item Value Reference Range Interpretation Comments Monocytes (test code = Monocytes) 4.9 2.0-12.0 [facility] HospitalLyndaalLKXOZEHCGX1779-93-70 09:09:00 Test Item Value Reference Range Interpretation Comments Eosinophils (test code = 0.4 See_Comment [A utomated message] The Eosinophils) system which ge nerated this result tra nsmitted reference range : <=4.0. The reference r samantha was not used to int erpret this result as normal/abnormal . [facility] HospitalWhubstxROIUTVNXFZ8514-70-55 09:09:00 Test Item Value Reference Range Interpretation Comments Basophils (test code = 0.4 See_Comment [Aut omated message] The Basophils) system which ge nerated this result tra nsmitted reference range : <=1.0. The reference r samantha was not used to int erpret this result as normal/abnormal . [place] 841442-06-29 09:09:00 Test Item Value Reference Range Interpretation Comments Neutrophils # (test code = Neutrophils 4.0 1.5-8.1 #) [facility] HospitalCpldlpiOQFRYTLEUP6183-43-99 09:09:00 Test Item Value Reference Range Interpretation Comments Lymphocytes # (test code = Lymphocytes 0.5 1.0-5.5 #) [facility] HospitalNlzodmoNGNQCDYOZV3943-33-46 09:09:00 Test Item Value Reference Range Interpretation Comments Monocytes # (test code 0.2 See_Comment [Aut omated message] The = Monocytes #) system which generated this result tra nsmitted reference range : <=0.8. The reference r samantha was not used to int erpret this result as normal/abnormal . [facility] HospitalWbrnjvbCVDLMCJIFH4324-45-16 09:09:00 Test Item Value Reference Range Interpretation Comments Macrocyte (test code = 1+ *ABN*(11/26/21 Macrocyte) 4:09 AM) [place] 066822-06-29 09:09:00 Test Item Value Reference Range Interpretation Comments Interleukin 6 (test code = Interleukin 14.71 6) [place] 066822-06-29 09:09:00 Test Item Value Reference Range Interpretation Comments C-REACTIVE PROTEIN (test code = 95.9 C-REACTIVE PROTEIN) [facility]2022-06-29 09:09:00 Test Item Value Reference Range Interpretation Comments Ferritin Lvl (test code = Ferritin Lvl) 1543 22-275 [facility]2022-06-29 09:09:00 Test Item Value Reference Range Interpretation Comments Glucose Lvl (test code = Glucose Lvl) 288 70-99 [facility]2022-06-29 09:09:00 Test Item Value Reference Range Interpretation Comments BUN (test code = BUN) 40 7-22 [place] 491452-06-29 09:09:00 Test Item Value Reference Range Interpretation Comments Creatinine Lvl (test code = Creatinine 6.23 0.50-1.40 Lvl) [place] 491452-06-29 09:09:00 Test Item Value Reference Range Interpretation Comments Sodium Lvl (test code = Sodium Lvl) 134 135-145 [facility]2022-06-29 09:09:00 Test Item Value Reference Range Interpretation Comments Potassium Lvl (test code = Potassium 4.5 3.5-5.1 Lvl) [place] 491452-06-29 09:09:00 Test Item Value Reference Range Interpretation Comments Chloride Lvl (test code = Chloride Lvl) 96 95-109 [facility]2022-06-29 09:09:00 Test Item Value Reference Range Interpretation Comments CO2 (test code = CO2) 29 24-32 [place] 491452-06-29 09:09:00 Test Item Value Reference Range Interpretation Comments AGAP (test code = AGAP) 13.5 10.0-20.0 [place] 491452-06-29 09:09:00 Test Item Value Reference Range Interpretation Comments Calcium Lvl (test code = Calcium Lvl) 9.1 8.5-10.5 [place] 491452-06-29 09:09:00 Test Item Value Reference Range Interpretation Comments B/C Ratio (test code = B/C Ratio) 6 1 6-25 [place] 491452-06-29 09:09:00 Test Item Value Reference Range Interpretation Comments Total Protein (test code = Total 6.3 6.4-8.4 Protein) [place] 491452-06-29 09:09:00 Test Item Value Reference Range Interpretation Comments Albumin Lvl (test code = Albumin Lvl) 2.5 3.5-5.0 [place] 491452-06-29 09:09:00 Test Item Value Reference Range Interpretation Comments Globulin (test code = Globulin) 3.8 2.7-4.2 [facility]2022-06-29 09:09:00 Test Item Value Reference Range Interpretation Comments A/G Ratio (test code = A/G Ratio) 0.7 1 0.7-1.6 [place] 491452-06-29 09:09:00 Test Item Value Reference Range Interpretation Comments ALT (test code = ALT) 38 See_Comment [Auto mated message] The system which ge nerated this result transmit swathi reference range : <=65. The reference range was not used to interpr et this result as deny l/abnormal. [place] 491452-06-29 09:09:00 Test Item Value Reference Range Interpretation Comments AST (test code = AST) 31 See_Comment [Auto mated message] The system which ge nerated this result transmit swathi reference range : <=37. The reference range was not used to interpr et this result as deny l/abnormal. [address]06-29 09:09:00 Test Item Value Reference Range Interpretation Comments Alk Phos (test code = Alk Phos) 357 39-136 [place] 491452-06-29 09:09:00 Test Item Value Reference Range Interpretation Comments Bili Total (test code = Bili Total) 1.0 0.2-1.3 [place] 491452-06-29 09:09:00 Test Item Value Reference Range Interpretation Comments eGFR (test code = eGFR) 8 [place] 491452-06-29 09:09:00 Test Item Value Reference Range Interpretation Comments Magnesium Lvl (test code = Magnesium 2.0 1.8-2.4 Lvl) [place] 491452-06-29 09:09:00 Test Item Value Reference Range Interpretation Comments LDH (test code = LDH) 251 98-192 [place] 491452-06-29 09:09:00 Test Item Value Reference Range Interpretation Comments Procalcitonin Lvl (test 0.51 See_Comment [Au tomated message] code = Procalcitonin Lvl) e system which generated this result transmitted ref erence range: <=0.10. The reference range was not used to interpr et this result as normal/abnormal . [facility] HospitalJkduqdkEKRQIJFKCI7189-84-97 09:09:00 Test Item Value Reference Range Interpretation Comments D-Dimer (test code = D-Dimer) 5.06 [place] [address]-06-29 09:09:00 Test Item Value Reference Range Interpretation Comments WBC (test code = WBC) 4.8 3.7-10.4 [place] 841442-06-29 09:09:00 Test Item Value Reference Range Interpretation Comments RBC (test code = RBC) 2.14 4.70-6.10 [place] [address]-06-29 09:09:00 Test Item Value Reference Range Interpretation Comments Hgb (test code = Hgb) 7.7 14.0-18.0 [place] [address]-06-29 09:09:00 Test Item Value Reference Range Interpretation Comments Hct (test code = Hct) 22.8 42.0-54.0 [place] [address]-06-29 09:09:00 Test Item Value Reference Range Interpretation Comments MCV (test code = MCV) 106.5 80.0-94.0 [facility] HospitalBryxziqYNDRGWCSLZ4125-31-52 09:09:00 Test Item Value Reference Range Interpretation Comments MCH (test code = MCH) 36.1 pg 27.0-31.0 [facility] HospitalHmvcaggEALDPXBJYC6382-90-23 09:09:00 Test Item Value Reference Range Interpretation Comments MCHC (test code = MCHC) 33.9 32.0-36.0 [facility] HospitalJgpatciQFWFDFCCKP6386-60-34 09:09:00 Test Item Value Reference Range Interpretation Comments RDW (test code = RDW) 21.8 11.5-14.5 [facility] HospitalTvlenrdSEKIXQIQWB4799-94-08 09:09:00 Test Item Value Reference Range Interpretation Comments Platelet (test code = Platelet) 176 133-450 [facility] HospitalNfqtlksBETGPERUTH3533-96-19 09:09:00 Test Item Value Reference Range Interpretation Comments MPV (test code = MPV) 8.2 7.4-10.4 [facility] HospitalIyndawkQKQPUALNUI6802-27-71 09:09:00 Test Item Value Reference Range Interpretation Comments Segs (test code = Segs) 83.6 45.0-75.0 [facility] HospitalAorerqcWAYMMWGENL2937-70-86 09:09:00 Test Item Value Reference Range Interpretation Comments Lymphocytes (test code = Lymphocytes) 10.7 20.0-40.0 [facility] HospitalQjpiwozMTEEZZFUCN6084-41-21 09:09:00 Test Item Value Reference Range Interpretation Comments Monocytes (test code = Monocytes) 4.9 2.0-12.0 [facility] HospitalYhuozdfCTTTFYLVTP4343-19-58 09:09:00 Test Item Value Reference Range Interpretation Comments Eosinophils (test code = 0.4 See_Comment [A utomated message] The Eosinophils) system which ge nerated this result tra nsmitted reference range : <=4.0. The reference r samantha was not used to int erpret this result as normal/abnormal . [facility] HospitalXwxmeasVFUOLJQDQO0142-27-72 09:09:00 Test Item Value Reference Range Interpretation Comments Basophils (test code = 0.4 See_Comment [Aut omated message] The Basophils) system which ge nerated this result tra nsmitted reference range : <=1.0. The reference r samantha was not used to int erpret this result as normal/abnormal . [facility] HospitalVuhtbujGVIRUCIIMP0997-24-25 09:09:00 Test Item Value Reference Range Interpretation Comments Neutrophils # (test code = Neutrophils 4.0 1.5-8.1 #) [place] 841442-06-29 09:09:00 Test Item Value Reference Range Interpretation Comments Lymphocytes # (test code = Lymphocytes 0.5 1.0-5.5 #) [facility] HospitalOphlmkzVCOFQRBZOT7235-38-65 09:09:00 Test Item Value Reference Range Interpretation Comments Monocytes # (test code 0.2 See_Comment [Aut omated message] The = Monocytes #) system which generated this result tra nsmitted reference range : <=0.8. The reference r samantha was not used to int erpret this result as normal/abnormal . [place] 841442-06-29 09:09:00 Test Item Value Reference Range Interpretation Comments Macrocyte (test code = 1+ *ABN*(11/26/21 Macrocyte) 4:09 AM) [place] 066822-06-29 09:09:00 Test Item Value Reference Range Interpretation Comments Interleukin 6 (test code = Interleukin 14.71 6) [place] 066822-06-29 09:09:00 Test Item Value Reference Range Interpretation Comments C-REACTIVE PROTEIN (test code = 95.9 C-REACTIVE PROTEIN) [facility]2022-06-29 09:09:00 Test Item Value Reference Range Interpretation Comments Ferritin Lvl (test code = Ferritin Lvl) 1543 22-275 [facility]2022-06-29 09:09:00 Test Item Value Reference Range Interpretation Comments Glucose Lvl (test code = Glucose Lvl) 288 70-99 [facility]2022-06-29 09:09:00 Test Item Value Reference Range Interpretation Comments BUN (test code = BUN) 40 7-22 [place] 491452-06-29 09:09:00 Test Item Value Reference Range Interpretation Comments Creatinine Lvl (test code = Creatinine 6.23 0.50-1.40 Lvl) [place] 491452-06-29 09:09:00 Test Item Value Reference Range Interpretation Comments Sodium Lvl (test code = Sodium Lvl) 134 135-145 [facility]2022-06-29 09:09:00 Test Item Value Reference Range Interpretation Comments Potassium Lvl (test code = Potassium 4.5 3.5-5.1 Lvl) [place] 491452-06-29 09:09:00 Test Item Value Reference Range Interpretation Comments Chloride Lvl (test code = Chloride Lvl) 96 95-109 [place] 491452-06-29 09:09:00 Test Item Value Reference Range Interpretation Comments CO2 (test code = CO2) 29 24-32 [place] 491452-06-29 09:09:00 Test Item Value Reference Range Interpretation Comments AGAP (test code = AGAP) 13.5 10.0-20.0 [place] 491452-06-29 09:09:00 Test Item Value Reference Range Interpretation Comments Calcium Lvl (test code = Calcium Lvl) 9.1 8.5-10.5 [place] 491452-06-29 09:09:00 Test Item Value Reference Range Interpretation Comments B/C Ratio (test code = B/C Ratio) 6 1 6-25 [place] 491452-06-29 09:09:00 Test Item Value Reference Range Interpretation Comments Total Protein (test code = Total 6.3 6.4-8.4 Protein) [place] 491452-06-29 09:09:00 Test Item Value Reference Range Interpretation Comments Albumin Lvl (test code = Albumin Lvl) 2.5 3.5-5.0 [place] 491452-06-29 09:09:00 Test Item Value Reference Range Interpretation Comments Globulin (test code = Globulin) 3.8 2.7-4.2 [place] 491452-06-29 09:09:00 Test Item Value Reference Range Interpretation Comments A/G Ratio (test code = A/G Ratio) 0.7 1 0.7-1.6 [place] 491452-06-29 09:09:00 Test Item Value Reference Range Interpretation Comments ALT (test code = ALT) 38 See_Comment [Auto mated message] The system which ge nerated this result transmit swathi reference range : <=65. The reference range was not used to interpr et this result as deny l/abnormal. [place] 491452-06-29 09:09:00 Test Item Value Reference Range Interpretation Comments AST (test code = AST) 31 See_Comment [Auto mated message] The system which ge nerated this result transmit swathi reference range : <=37. The reference range was not used to interpr et this result as deny l/abnormal. [facility] HospitalTask [employer] [employer] [id number] 09:09:00 Test Item Value Reference Range Interpretation Comments Alk Phos (test code = Alk Phos) 357 39-136 [facility]ActionTax[facility]ca JCWZN0933-19-25 09:09:00 Test Item Value Reference Range Interpretation Comments Bili Total (test code = Bili Total) 1.0 0.2-1.3 [place] 491452-06-29 09:09:00 Test Item Value Reference Range Interpretation Comments eGFR (test code = eGFR) 8 [place] 491452-06-29 09:09:00 Test Item Value Reference Range Interpretation Comments Magnesium Lvl (test code = Magnesium 2.0 1.8-2.4 Lvl) [place] 491452-06-29 09:09:00 Test Item Value Reference Range Interpretation Comments LDH (test code = LDH) 251 98-192 [facility] HospitalTask [facility] Inc[facility] [id number] 09:09:00 Test Item Value Reference Range Interpretation Comments Procalcitonin Lvl (test 0.51 See_Comment [Au tomated message] code = Procalcitonin Lvl) Th e system which generated this result transmitted ref erence range: <=0.10. The reference range was not used to interpr et this result as normal/abnormal . [facility] HospitalKjypaitHWXGIPSNBR5903-72-85 09:09:00 Test Item Value Reference Range Interpretation Comments D-Dimer (test code = D-Dimer) 5.06 [place] [address]-06-29 09:09:00 Test Item Value Reference Range Interpretation Comments WBC (test code = WBC) 4.8 3.7-10.4 [place] [address]-06-29 09:09:00 Test Item Value Reference Range Interpretation Comments RBC (test code = RBC) 2.14 4.70-6.10 [place] [address]-06-29 09:09:00 Test Item Value Reference Range Interpretation Comments Hgb (test code = Hgb) 7.7 14.0-18.0 [place] 841442-06-29 09:09:00 Test Item Value Reference Range Interpretation Comments Hct (test code = Hct) 22.8 42.0-54.0 [place] 841442-06-29 09:09:00 Test Item Value Reference Range Interpretation Comments MCV (test code = MCV) 106.5 80.0-94.0 [place] 841442-06-29 09:09:00 Test Item Value Reference Range Interpretation Comments MCH (test code = MCH) 36.1 pg 27.0-31.0 [facility] HospitalQvhjoiwNTGUCKKZXQ1373-00-96 09:09:00 Test Item Value Reference Range Interpretation Comments MCHC (test code = MCHC) 33.9 32.0-36.0 [place] 841442-06-29 09:09:00 Test Item Value Reference Range Interpretation Comments RDW (test code = RDW) 21.8 11.5-14.5 [place] 841442-06-29 09:09:00 Test Item Value Reference Range Interpretation Comments Platelet (test code = Platelet) 176 133-450 [facility] HospitalPzfpprsGZBCOMNNFF8393-91-23 09:09:00 Test Item Value Reference Range Interpretation Comments MPV (test code = MPV) 8.2 7.4-10.4 [facility] HospitalJushtqdBEMHJSMKME1488-39-29 09:09:00 Test Item Value Reference Range Interpretation Comments Segs (test code = Segs) 83.6 45.0-75.0 [facility] HospitalHwuwxrfHFMSFNMDQM8399-89-68 09:09:00 Test Item Value Reference Range Interpretation Comments Lymphocytes (test code = Lymphocytes) 10.7 20.0-40.0 [place] 841442-06-29 09:09:00 Test Item Value Reference Range Interpretation Comments Monocytes (test code = Monocytes) 4.9 2.0-12.0 [place] 841442-06-29 09:09:00 Test Item Value Reference Range Interpretation Comments Eosinophils (test code = 0.4 See_Comment [A utomated message] The Eosinophils) system which ge nerated this result tra nsmitted reference range : <=4.0. The reference r samantha was not used to int erpret this result as normal/abnormal . [facility] HospitalSdrydzhQXIZETINQQ6914-37-13 09:09:00 Test Item Value Reference Range Interpretation Comments Basophils (test code = 0.4 See_Comment [Aut omated message] The Basophils) system which ge nerated this result tra nsmitted reference range : <=1.0. The reference r samantha was not used to int erpret this result as normal/abnormal . [facility] HospitalZyicmrwOUHMLXHZXE7675-60-56 09:09:00 Test Item Value Reference Range Interpretation Comments Neutrophils # (test code = Neutrophils 4.0 1.5-8.1 #) [facility] HospitalNqzlnriFJUTDQWXKQ0159-55-28 09:09:00 Test Item Value Reference Range Interpretation Comments Lymphocytes # (test code = Lymphocytes 0.5 1.0-5.5 #) [facility] HospitalBqlsovtLRDIRIDTKQ1568-49-51 09:09:00 Test Item Value Reference Range Interpretation Comments Monocytes # (test code 0.2 See_Comment [Aut omated message] The = Monocytes #) system which generated this result tra nsmitted reference range : <=0.8. The reference r samantha was not used to int erpret this result as normal/abnormal . [facility] HospitalPksmwssDYANCRBMFE8515-83-29 09:09:00 Test Item Value Reference Range Interpretation Comments Macrocyte (test code = 1+ *ABN*(11/26/21 Macrocyte) 4:09 AM) [place] 066822-06-29 09:09:00 Test Item Value Reference Range Interpretation Comments Interleukin 6 (test code = Interleukin 14.71 6) [facility]HeamomtAJTRJMAJAF9572-49-31 09:09:00 Test Item Value Reference Range Interpretation Comments C-REACTIVE PROTEIN (test code = 95.9 C-REACTIVE PROTEIN) [facility] HospitalFnpvaleIDGKITHYLF7143-66-92 12:33:00 Test Item Value Reference Range Interpretation Comments Segs (test code = Segs) 84.8 45.0-75.0 [place] 841442-06-28 12:33:00 Test Item Value Reference Range Interpretation Comments Lymphocytes (test code = Lymphocytes) 11.6 20.0-40.0 [place] 841442-06-28 12:33:00 Test Item Value Reference Range Interpretation Comments Monocytes (test code = Monocytes) 2.8 2.0-12.0 [place] 841442-06-28 12:33:00 Test Item Value Reference Range Interpretation Comments Eosinophils (test code = 0.4 See_Comment [A utomated message] The Eosinophils) system which ge nerated this result tra nsmitted reference range : <=4.0. The reference r samantha was not used to int erpret this result as normal/abnormal . [facility] HospitalPtpcwxdQVBPOIQAZX3998-41-27 12:33:00 Test Item Value Reference Range Interpretation Comments Basophils (test code = 0.4 See_Comment [Aut omated message] The Basophils) system which ge nerated this result tra nsmitted reference range : <=1.0. The reference r samantha was not used to int erpret this result as normal/abnormal . [facility] HospitalImpaolmMIEJLRNRNC8450-99-60 12:33:00 Test Item Value Reference Range Interpretation Comments Neutrophils # (test code = Neutrophils 4.4 1.5-8.1 #) [facility] HospitalPtqhxwqTFUWAGIBOR5723-76-36 12:33:00 Test Item Value Reference Range Interpretation Comments Lymphocytes # (test code = Lymphocytes 0.6 1.0-5.5 #) [facility] HospitalOjlcaboDYLEZHPDRW3115-16-13 12:33:00 Test Item Value Reference Range Interpretation Comments Monocytes # (test code 0.1 See_Comment [Aut omated message] The = Monocytes #) system which generated this result tra nsmitted reference range : <=0.8. The reference r samantha was not used to int erpret this result as normal/abnormal . [facility] HospitalMmhrtncLTUMILBTOW1404-84-25 12:33:00 Test Item Value Reference Range Interpretation Comments Macrocyte (test code = 1+ *ABN*(11/25/21 Macrocyte) 7:33 AM) [facility] HospitalWhsyvnbAXXOPEGWKI2895-80-97 12:33:00 Test Item Value Reference Range Interpretation Comments WBC (test code = WBC) 5.2 3.7-10.4 [place] 841442-06-28 12:33:00 Test Item Value Reference Range Interpretation Comments RBC (test code = RBC) 2.18 4.70-6.10 [place] 841442-06-28 12:33:00 Test Item Value Reference Range Interpretation Comments Hgb (test code = Hgb) 7.8 14.0-18.0 [place] 841442-06-28 12:33:00 Test Item Value Reference Range Interpretation Comments Hct (test code = Hct) 23.6 42.0-54.0 [place] 841442-06-28 12:33:00 Test Item Value Reference Range Interpretation Comments MCV (test code = MCV) 108.4 80.0-94.0 [place] 841442-06-28 12:33:00 Test Item Value Reference Range Interpretation Comments MCH (test code = MCH) 35.9 pg 27.0-31.0 [place] 841442-06-28 12:33:00 Test Item Value Reference Range Interpretation Comments MCHC (test code = MCHC) 33.1 32.0-36.0 [place] 841442-06-28 12:33:00 Test Item Value Reference Range Interpretation Comments RDW (test code = RDW) 21.5 11.5-14.5 [place] 841442-06-28 12:33:00 Test Item Value Reference Range Interpretation Comments Platelet (test code = Platelet) 167 133-450 [place] 841442-06-28 12:33:00 Test Item Value Reference Range Interpretation Comments MPV (test code = MPV) 7.6 7.4-10.4 [place] 841442-06-28 12:33:00 Test Item Value Reference Range Interpretation Comments Segs (test code = Segs) 84.8 45.0-75.0 [place] 841442-06-28 12:33:00 Test Item Value Reference Range Interpretation Comments Lymphocytes (test code = Lymphocytes) 11.6 20.0-40.0 [place] 841442-06-28 12:33:00 Test Item Value Reference Range Interpretation Comments Monocytes (test code = Monocytes) 2.8 2.0-12.0 [place] 841442-06-28 12:33:00 Test Item Value Reference Range Interpretation Comments Eosinophils (test code = 0.4 See_Comment [A utomated message] The Eosinophils) system which ge nerated this result tra nsmitted reference range : <=4.0. The reference r samantha was not used to int erpret this result as normal/abnormal . [place] 841442-06-28 12:33:00 Test Item Value Reference Range Interpretation Comments Basophils (test code = 0.4 See_Comment [Aut omated message] The Basophils) system which ge nerated this result tra nsmitted reference range : <=1.0. The reference r samantha was not used to int erpret this result as normal/abnormal . [place] 841442-06-28 12:33:00 Test Item Value Reference Range Interpretation Comments Neutrophils # (test code = Neutrophils 4.4 1.5-8.1 #) [place] 841442-06-28 12:33:00 Test Item Value Reference Range Interpretation Comments Lymphocytes # (test code = Lymphocytes 0.6 1.0-5.5 #) [place] 841442-06-28 12:33:00 Test Item Value Reference Range Interpretation Comments Monocytes # (test code 0.1 See_Comment [Aut omated message] The = Monocytes #) system which generated this result tra nsmitted reference range : <=0.8. The reference r samantha was not used to int erpret this result as normal/abnormal . [place] 841442-06-28 12:33:00 Test Item Value Reference Range Interpretation Comments Macrocyte (test code = 1+ *ABN*(11/25/21 Macrocyte) 7:33 AM) [place] [address]-06-28 12:33:00 Test Item Value Reference Range Interpretation Comments WBC (test code = WBC) 5.2 3.7-10.4 [place] 841442-06-28 12:33:00 Test Item Value Reference Range Interpretation Comments RBC (test code = RBC) 2.18 4.70-6.10 [place] 841442-06-28 12:33:00 Test Item Value Reference Range Interpretation Comments Hgb (test code = Hgb) 7.8 14.0-18.0 [place] [address]-06-28 12:33:00 Test Item Value Reference Range Interpretation Comments Hct (test code = Hct) 23.6 42.0-54.0 [place] [address]-06-28 12:33:00 Test Item Value Reference Range Interpretation Comments MCV (test code = MCV) 108.4 80.0-94.0 [place] [address]-06-28 12:33:00 Test Item Value Reference Range Interpretation Comments MCH (test code = MCH) 35.9 pg 27.0-31.0 [place] [address]-06-28 12:33:00 Test Item Value Reference Range Interpretation Comments MCHC (test code = MCHC) 33.1 32.0-36.0 [place] 841442-06-28 12:33:00 Test Item Value Reference Range Interpretation Comments RDW (test code = RDW) 21.5 11.5-14.5 [place] 841442-06-28 12:33:00 Test Item Value Reference Range Interpretation Comments Platelet (test code = Platelet) 167 133-450 [place] 841442-06-28 12:33:00 Test Item Value Reference Range Interpretation Comments MPV (test code = MPV) 7.6 7.4-10.4 [place] 841442-06-28 12:33:00 Test Item Value Reference Range Interpretation Comments Segs (test code = Segs) 84.8 45.0-75.0 [place] 841442-06-28 12:33:00 Test Item Value Reference Range Interpretation Comments Lymphocytes (test code = Lymphocytes) 11.6 20.0-40.0 [place] 841442-06-28 12:33:00 Test Item Value Reference Range Interpretation Comments Monocytes (test code = Monocytes) 2.8 2.0-12.0 [place] 841442-06-28 12:33:00 Test Item Value Reference Range Interpretation Comments Eosinophils (test code = 0.4 See_Comment [A utomated message] The Eosinophils) system which ge nerated this result tra nsmitted reference range : <=4.0. The reference r samantha was not used to int erpret this result as normal/abnormal . [facility]iwwglbVHSVKIFURG1189-95-20 12:33:00 Test Item Value Reference Range Interpretation Comments Basophils (test code = 0.4 See_Comment [Aut omated message] The Basophils) system which ge nerated this result tra nsmitted reference range : <=1.0. The reference r samantha was not used to int erpret this result as normal/abnormal . [place] 841442-06-28 12:33:00 Test Item Value Reference Range Interpretation Comments Neutrophils # (test code = Neutrophils 4.4 1.5-8.1 #) [place] 841442-06-28 12:33:00 Test Item Value Reference Range Interpretation Comments Lymphocytes # (test code = Lymphocytes 0.6 1.0-5.5 #) [facility] HospitalJenibnzTTEHARFCCM1670-76-05 12:33:00 Test Item Value Reference Range Interpretation Comments Monocytes # (test code 0.1 See_Comment [Aut omated message] The = Monocytes #) system which generated this result tra nsmitted reference range : <=0.8. The reference r samantha was not used to int erpret this result as normal/abnormal . [facility] HospitalPpfadpyOQOLNFVDMY4597-66-78 12:33:00 Test Item Value Reference Range Interpretation Comments Macrocyte (test code = 1+ *ABN*(11/25/21 Macrocyte) 7:33 AM) [facility] HospitalEeqvczdVPOFNPDELV0582-64-95 12:33:00 Test Item Value Reference Range Interpretation Comments WBC (test code = WBC) 5.2 3.7-10.4 [facility] HospitalPxaptbtUTSTFUJSUM0459-06-93 12:33:00 Test Item Value Reference Range Interpretation Comments RBC (test code = RBC) 2.18 4.70-6.10 [facility] HospitalRzmjzmeHOGVIJLDUO5955-74-37 12:33:00 Test Item Value Reference Range Interpretation Comments Hgb (test code = Hgb) 7.8 14.0-18.0 [facility] HospitalXuycxgcICVJFVHMVJ8606-28-53 12:33:00 Test Item Value Reference Range Interpretation Comments Hct (test code = Hct) 23.6 42.0-54.0 [facility] HospitalEwcphieRPZJUJNXRN5700-04-93 12:33:00 Test Item Value Reference Range Interpretation Comments MCV (test code = MCV) 108.4 80.0-94.0 [facility] HospitalVlhwxkrIDSRHQYYNM9831-99-56 12:33:00 Test Item Value Reference Range Interpretation Comments MCH (test code = MCH) 35.9 pg 27.0-31.0 [facility] HospitalVtuuaisUDOQFGTQBY7152-03-80 12:33:00 Test Item Value Reference Range Interpretation Comments MCHC (test code = MCHC) 33.1 32.0-36.0 [facility] HospitalAssgfwtSQQOLTMYFW7145-51-18 12:33:00 Test Item Value Reference Range Interpretation Comments RDW (test code = RDW) 21.5 11.5-14.5 [facility] HospitalTypoqkuEWSCVJZHZS6722-44-25 12:33:00 Test Item Value Reference Range Interpretation Comments Platelet (test code = Platelet) 167 133-450 [place] 841442-06-28 12:33:00 Test Item Value Reference Range Interpretation Comments MPV (test code = MPV) 7.6 7.4-10.4 [place] 841442-06-28 12:33:00 Test Item Value Reference Range Interpretation Comments Segs (test code = Segs) 84.8 45.0-75.0 [place] 841442-06-28 12:33:00 Test Item Value Reference Range Interpretation Comments Lymphocytes (test code = Lymphocytes) 11.6 20.0-40.0 [place] [address]-06-28 12:33:00 Test Item Value Reference Range Interpretation Comments Monocytes (test code = Monocytes) 2.8 2.0-12.0 [place] 841442-06-28 12:33:00 Test Item Value Reference Range Interpretation Comments Eosinophils (test code = 0.4 See_Comment [A utomated message] The Eosinophils) system which ge nerated this result tra nsmitted reference range : <=4.0. The reference r samantha was not used to int erpret this result as normal/abnormal . [facility] HospitalSkzvywuKZYUUKTMSZ6857-72-22 12:33:00 Test Item Value Reference Range Interpretation Comments Basophils (test code = 0.4 See_Comment [Aut omated message] The Basophils) system which ge nerated this result tra nsmitted reference range : <=1.0. The reference r samantha was not used to int erpret this result as normal/abnormal . [facility] HospitalGcgurgxFSYXESVVUR3395-69-12 12:33:00 Test Item Value Reference Range Interpretation Comments Neutrophils # (test code = Neutrophils 4.4 1.5-8.1 #) [place] 841442-06-28 12:33:00 Test Item Value Reference Range Interpretation Comments Lymphocytes # (test code = Lymphocytes 0.6 1.0-5.5 #) [place] 841442-06-28 12:33:00 Test Item Value Reference Range Interpretation Comments Monocytes # (test code 0.1 See_Comment [Aut omated message] The = Monocytes #) system which generated this result tra nsmitted reference range : <=0.8. The reference r samantha was not used to int erpret this result as normal/abnormal . [place] 841442-06-28 12:33:00 Test Item Value Reference Range Interpretation Comments Macrocyte (test code = 1+ *ABN*(11/25/21 Macrocyte) 7:33 AM) [facility] HospitalBrkjmdtKZOWNCRNLS7185-97-99 12:33:00 Test Item Value Reference Range Interpretation Comments WBC (test code = WBC) 5.2 3.7-10.4 [facility] HospitalDcipwyfRHMTWSEBVR7820-41-82 12:33:00 Test Item Value Reference Range Interpretation Comments RBC (test code = RBC) 2.18 4.70-6.10 [facility] HospitalPqopxhuZIFDUCPOGM3054-16-72 12:33:00 Test Item Value Reference Range Interpretation Comments Hgb (test code = Hgb) 7.8 14.0-18.0 [facility] HospitalYsyzhagHUDALFNFTW3937-36-66 12:33:00 Test Item Value Reference Range Interpretation Comments Hct (test code = Hct) 23.6 42.0-54.0 [facility] HospitalJutdwlxGWFYBFONSZ6904-60-34 12:33:00 Test Item Value Reference Range Interpretation Comments MCV (test code = MCV) 108.4 80.0-94.0 [facility] HospitalKlfxhdxMXZEYXHJPP0519-49-01 12:33:00 Test Item Value Reference Range Interpretation Comments MCH (test code = MCH) 35.9 pg 27.0-31.0 [facility] HospitalSaaxohmYMXPEKHFOM7653-04-43 12:33:00 Test Item Value Reference Range Interpretation Comments MCHC (test code = MCHC) 33.1 32.0-36.0 [facility] HospitalZkdfahfJUVNPXVBHR6357-77-89 12:33:00 Test Item Value Reference Range Interpretation Comments RDW (test code = RDW) 21.5 11.5-14.5 [facility] HospitalAecwlrwQNLRZTHQUU7485-80-95 12:33:00 Test Item Value Reference Range Interpretation Comments Platelet (test code = Platelet) 167 133-450 [facility] HospitalCxshqpbRRKGJCAQPC6650-15-44 12:33:00 Test Item Value Reference Range Interpretation Comments MPV (test code = MPV) 7.6 7.4-10.4 [facility]2022-06-28 11:17:00 Test Item Value Reference Range Interpretation Comments Vitamin B12 Lvl (test code = Vitamin 1508 B12 Lvl) [facility]2022-06-28 11:17:00 Test Item Value Reference Range Interpretation Comments Folate Lvl (test code = Folate Lvl) 22.3 [facility]2022-06-28 11:17:00 Test Item Value Reference Range Interpretation Comments Ferritin Lvl (test code = Ferritin Lvl) 1423 67-275 [facility]2022-06-28 11:17:00 Test Item Value Reference Range Interpretation Comments Glucose Lvl (test code = Glucose Lvl) 205 70-99 [facility]2022-06-28 11:17:00 Test Item Value Reference Range Interpretation Comments BUN (test code = BUN) 60 7-22 [facility]2022-06-28 11:17:00 Test Item Value Reference Range Interpretation Comments Creatinine Lvl (test code = Creatinine 8.46 0.50-1.40 Lvl) [facility]2022-06-28 11:17:00 Test Item Value Reference Range Interpretation Comments Sodium Lvl (test code = Sodium Lvl) 131 135-145 [facility]2022-06-28 11:17:00 Test Item Value Reference Range Interpretation Comments Potassium Lvl (test code = Potassium 5.2 3.5-5.1 Lvl) [facility]2022-06-28 11:17:00 Test Item Value Reference Range Interpretation Comments Chloride Lvl (test code = Chloride Lvl) 93 95-109 [facility]2022-06-28 11:17:00 Test Item Value Reference Range Interpretation Comments CO2 (test code = CO2) 29 24-32 [facility]2022-06-28 11:17:00 Test Item Value Reference Range Interpretation Comments Calcium Lvl (test code = Calcium Lvl) 8.7 8.5-10.5 [facility]2022-06-28 11:17:00 Test Item Value Reference Range Interpretation Comments Total Protein (test code = Total 6.0 6.4-8.4 Protein) [facility]2022-06-28 11:17:00 Test Item Value Reference Range Interpretation Comments Albumin Lvl (test code = Albumin Lvl) 2.6 3.5-5.0 [facility]2022-06-28 11:17:00 Test Item Value Reference Range Interpretation Comments ALT (test code = ALT) 43 See_Comment [Auto mated message] The system which ge nerated this result transmit swathi reference range : <=65. The reference range was not used to interpr et this result as deny l/abnormal. [facility] [employer] [id number] 11:17:00 Test Item Value Reference Range Interpretation Comments AST (test code = AST) 35 See_Comment [Auto mated message] The system which ge nerated this result transmit swathi reference range : <=37. The reference range was not used to interpr et this result as deny l/abnormal. [facility] [employer] [id number] 11:17:00 Test Item Value Reference Range Interpretation Comments Alk Phos (test code = Alk Phos) 385 39-136 [facility] [employer] [id number] 11:17:00 Test Item Value Reference Range Interpretation Comments Bili Total (test code = Bili Total) 1.2 0.2-1.3 [email or web address] [id number] 11:17:00 Test Item Value Reference Range Interpretation Comments AGAP (test code = AGAP) 14.2 10.0-20.0 [email or web address] [id number] 11:17:00 Test Item Value Reference Range Interpretation Comments B/C Ratio (test code = B/C Ratio) 7 1 6-25 [email or web address] [id number] 11:17:00 Test Item Value Reference Range Interpretation Comments Globulin (test code = Globulin) 3.4 2.7-4.2 [email or web address] [id number] 11:17:00 Test Item Value Reference Range Interpretation Comments A/G Ratio (test code = A/G Ratio) 0.8 1 0.7-1.6 [facility] [employer] [id number] 11:17:00 Test Item Value Reference Range Interpretation Comments eGFR (test code = eGFR) 6 [facility] [id number] 11:17:00 Test Item Value Reference Range Interpretation Comments Magnesium Lvl (test code = Magnesium 1.9 1.8-2.4 Lvl) [email or web address] [id number] 11:17:00 Test Item Value Reference Range Interpretation Comments LDH (test code = LDH) 297 98-192 [facility] [id number] 11:17:00 Test Item Value Reference Range Interpretation Comments Procalcitonin Lvl (test 0.63 See_Comment [Au tomated message] code = Procalcitonin Lvl) Th e system which generated this result transmitted ref erence range: <=0.10. The reference range was not used to interpr et this result as normal/abnormal . [facility] HospitalAnspnswIEXWJRIOPN1410-52-47 11:17:00 Test Item Value Reference Range Interpretation Comments D-Dimer (test code = D-Dimer) 5.33 [place] 066822-06-28 11:17:00 Test Item Value Reference Range Interpretation Comments Hep Bs Ag (test code Negative *NA*(11/25/21 = Hep Bs Ag) 6:17 AM) [place] 066822-06-28 11:17:00 Test Item Value Reference Range Interpretation Comments C-REACTIVE PROTEIN (test code = 134.0 C-REACTIVE PROTEIN) [place] 066822-06-28 11:17:00 Test Item Value Reference Range Interpretation Comments Interleukin 6 (test code = Interleukin 25.99 6) [facility]2022-06-28 11:17:00 Test Item Value Reference Range Interpretation Comments Vitamin B12 Lvl (test code = Vitamin 1508 B12 Lvl) [facility]2022-06-28 11:17:00 Test Item Value Reference Range Interpretation Comments Folate Lvl (test code = Folate Lvl) 22.3 [facility]2022-06-28 11:17:00 Test Item Value Reference Range Interpretation Comments Ferritin Lvl (test code = Ferritin Lvl) 1423 22-275 [facility]2022-06-28 11:17:00 Test Item Value Reference Range Interpretation Comments Glucose Lvl (test code = Glucose Lvl) 205 70-99 [facility]2022-06-28 11:17:00 Test Item Value Reference Range Interpretation Comments BUN (test code = BUN) 60 7-22 [facility]2022-06-28 11:17:00 Test Item Value Reference Range Interpretation Comments Creatinine Lvl (test code = Creatinine 8.46 0.50-1.40 Lvl) [facility]2022-06-28 11:17:00 Test Item Value Reference Range Interpretation Comments Sodium Lvl (test code = Sodium Lvl) 131 135-145 [facility]2022-06-28 11:17:00 Test Item Value Reference Range Interpretation Comments Potassium Lvl (test code = Potassium 5.2 3.5-5.1 Lvl) [place] 491452-06-28 11:17:00 Test Item Value Reference Range Interpretation Comments Chloride Lvl (test code = Chloride Lvl) 93 95-109 [place] 491452-06-28 11:17:00 Test Item Value Reference Range Interpretation Comments CO2 (test code = CO2) 29 24-32 [place] 491452-06-28 11:17:00 Test Item Value Reference Range Interpretation Comments Calcium Lvl (test code = Calcium Lvl) 8.7 8.5-10.5 [place] 491452-06-28 11:17:00 Test Item Value Reference Range Interpretation Comments Total Protein (test code = Total 6.0 6.4-8.4 Protein) [place] 491452-06-28 11:17:00 Test Item Value Reference Range Interpretation Comments Albumin Lvl (test code = Albumin Lvl) 2.6 3.5-5.0 [place] 491452-06-28 11:17:00 Test Item Value Reference Range Interpretation Comments ALT (test code = ALT) 43 See_Comment [Auto mated message] The system which ge nerated this result transmit swathi reference range : <=65. The reference range was not used to interpr et this result as deny l/abnormal. [place] 491452-06-28 11:17:00 Test Item Value Reference Range Interpretation Comments AST (test code = AST) 35 See_Comment [Auto mated message] The system which ge nerated this result transmit swathi reference range : <=37. The reference range was not used to interpr et this result as deny l/abnormal. [place] 491452-06-28 11:17:00 Test Item Value Reference Range Interpretation Comments Alk Phos (test code = Alk Phos) 385 39-136 [place] 491452-06-28 11:17:00 Test Item Value Reference Range Interpretation Comments Bili Total (test code = Bili Total) 1.2 0.2-1.3 [place] 491452-06-28 11:17:00 Test Item Value Reference Range Interpretation Comments AGAP (test code = AGAP) 14.2 10.0-20.0 [facility]2022-06-28 11:17:00 Test Item Value Reference Range Interpretation Comments B/C Ratio (test code = B/C Ratio) 7 1 6-25 [facility]2022-06-28 11:17:00 Test Item Value Reference Range Interpretation Comments Globulin (test code = Globulin) 3.4 2.7-4.2 [facility]2022-06-28 11:17:00 Test Item Value Reference Range Interpretation Comments A/G Ratio (test code = A/G Ratio) 0.8 1 0.7-1.6 [facility]2022-06-28 11:17:00 Test Item Value Reference Range Interpretation Comments eGFR (test code = eGFR) 6 [facility]2022-06-28 11:17:00 Test Item Value Reference Range Interpretation Comments Magnesium Lvl (test code = Magnesium 1.9 1.8-2.4 Lvl) [facility]2022-06-28 11:17:00 Test Item Value Reference Range Interpretation Comments LDH (test code = LDH) 297 98-192 [facility]2022-06-28 11:17:00 Test Item Value Reference Range Interpretation Comments Procalcitonin Lvl (test 0.63 See_Comment [Au tomated message] code = Procalcitonin Lvl) e system which generated this result transmitted ref erence range: <=0.10. The reference range was not used to interpr et this result as normal/abnormal . [facility] [id number] 11:17:00 Test Item Value Reference Range Interpretation Comments D-Dimer (test code = D-Dimer) 5.33 [facility]JJLNTUVLTF3428-33-37 11:17:00 Test Item Value Reference Range Interpretation Comments Hep Bs Ag (test code Negative *NA*(11/25/21 = Hep Bs Ag) 6:17 AM) [facility]EkchgnpRJZCDDRHHK9503-98-41 11:17:00 Test Item Value Reference Range Interpretation Comments C-REACTIVE PROTEIN (test code = 134.0 C-REACTIVE PROTEIN) [facility]ECEDR9734[facility]70-04 11:17:00 Test Item Value Reference Range Interpretation Comments Interleukin 6 (test code = Interleukin 25.99 6) [facility]2022-06-28 11:17:00 Test Item Value Reference Range Interpretation Comments Vitamin B12 Lvl (test code = Vitamin 1508 B12 Lvl) [facility]2022-06-28 11:17:00 Test Item Value Reference Range Interpretation Comments Folate Lvl (test code = Folate Lvl) 22.3 [facility]2022-06-28 11:17:00 Test Item Value Reference Range Interpretation Comments Ferritin Lvl (test code = Ferritin Lvl) 1423 22-275 [facility]2022-06-28 11:17:00 Test Item Value Reference Range Interpretation Comments Glucose Lvl (test code = Glucose Lvl) 205 70-99 [facility]2022-06-28 11:17:00 Test Item Value Reference Range Interpretation Comments BUN (test code = BUN) 60 7-22 [place] 491452-06-28 11:17:00 Test Item Value Reference Range Interpretation Comments Creatinine Lvl (test code = Creatinine 8.46 0.50-1.40 Lvl) [facility]2022-06-28 11:17:00 Test Item Value Reference Range Interpretation Comments Sodium Lvl (test code = Sodium Lvl) 131 135-145 [place] 491452-06-28 11:17:00 Test Item Value Reference Range Interpretation Comments Potassium Lvl (test code = Potassium 5.2 3.5-5.1 Lvl) [facility]2022-06-28 11:17:00 Test Item Value Reference Range Interpretation Comments Chloride Lvl (test code = Chloride Lvl) 93 95-109 [facility]2022-06-28 11:17:00 Test Item Value Reference Range Interpretation Comments CO2 (test code = CO2) 29 24-32 [place] 491452-06-28 11:17:00 Test Item Value Reference Range Interpretation Comments Calcium Lvl (test code = Calcium Lvl) 8.7 8.5-10.5 [facility]2022-06-28 11:17:00 Test Item Value Reference Range Interpretation Comments Total Protein (test code = Total 6.0 6.4-8.4 Protein) [facility]2022-06-28 11:17:00 Test Item Value Reference Range Interpretation Comments Albumin Lvl (test code = Albumin Lvl) 2.6 3.5-5.0 [facility] [employer] [id number] 11:17:00 Test Item Value Reference Range Interpretation Comments ALT (test code = ALT) 43 See_Comment [Auto mated message] The system which ge nerated this result transmit swathi reference range : <=65. The reference range was not used to interpr et this result as deny l/abnormal. [facility] [employer] [id number] 11:17:00 Test Item Value Reference Range Interpretation Comments AST (test code = AST) 35 See_Comment [Auto mated message] The system which ge nerated this result transmit swathi reference range : <=37. The reference range was not used to interpr et this result as deny l/abnormal. [facility] [employer] [id number] 11:17:00 Test Item Value Reference Range Interpretation Comments Alk Phos (test code = Alk Phos) 385 39-136 [email or web address] [id number] 11:17:00 Test Item Value Reference Range Interpretation Comments Bili Total (test code = Bili Total) 1.2 0.2-1.3 [email or web address] [id number] 11:17:00 Test Item Value Reference Range Interpretation Comments AGAP (test code = AGAP) 14.2 10.0-20.0 [facility] [employer] [id number] 11:17:00 Test Item Value Reference Range Interpretation Comments B/C Ratio (test code = B/C Ratio) 7 1 6-25 [facility] [id number] 11:17:00 Test Item Value Reference Range Interpretation Comments Globulin (test code = Globulin) 3.4 2.7-4.2 [facility] [employer] [id number] 11:17:00 Test Item Value Reference Range Interpretation Comments A/G Ratio (test code = A/G Ratio) 0.8 1 0.7-1.6 [facility] [employer] [id number] 11:17:00 Test Item Value Reference Range Interpretation Comments eGFR (test code = eGFR) 6 [facility] [id number] 11:17:00 Test Item Value Reference Range Interpretation Comments Magnesium Lvl (test code = Magnesium 1.9 1.8-2.4 Lvl) [facility] [id number] 11:17:00 Test Item Value Reference Range Interpretation Comments LDH (test code = LDH) 297 98-192 [facility]2022-06-28 11:17:00 Test Item Value Reference Range Interpretation Comments Procalcitonin Lvl (test 0.63 See_Comment [Au tomated message] code = Procalcitonin Lvl) e system which generated this result transmitted ref erence range: <=0.10. The reference range was not used to interpr et this result as normal/abnormal . [facility] HospitalBwpilhzCAKZWQEMAQ6194-91-42 11:17:00 Test Item Value Reference Range Interpretation Comments D-Dimer (test code = D-Dimer) 5.33 [facility]pf[facility]zFNMJVRLQKG9964-15-16 11:17:00 Test Item Value Reference Range Interpretation Comments Hep Bs Ag (test code Negative *NA*(11/25/21 = Hep Bs Ag) 6:17 AM) [place] 066822-06-28 11:17:00 Test Item Value Reference Range Interpretation Comments C-REACTIVE PROTEIN (test code = 134.0 C-REACTIVE PROTEIN) [facility]RK[facility]ZJDBR2259[facility]87-15 11:17:00 Test Item Value Reference Range Interpretation Comments Interleukin 6 (test code = Interleukin 25.99 6) [facility]2022-06-28 11:17:00 Test Item Value Reference Range Interpretation Comments Vitamin B12 Lvl (test code = Vitamin 1508 B12 Lvl) [facility]2022-06-28 11:17:00 Test Item Value Reference Range Interpretation Comments Folate Lvl (test code = Folate Lvl) 22.3 [facility]2022-06-28 11:17:00 Test Item Value Reference Range Interpretation Comments Ferritin Lvl (test code = Ferritin Lvl) 1423 22-275 [facility]2022-06-28 11:17:00 Test Item Value Reference Range Interpretation Comments Glucose Lvl (test code = Glucose Lvl) 205 70-99 [facility]2022-06-28 11:17:00 Test Item Value Reference Range Interpretation Comments BUN (test code = BUN) 60 7-22 [facility]2022-06-28 11:17:00 Test Item Value Reference Range Interpretation Comments Creatinine Lvl (test code = Creatinine 8.46 0.50-1.40 Lvl) [place] 491452-06-28 11:17:00 Test Item Value Reference Range Interpretation Comments Sodium Lvl (test code = Sodium Lvl) 131 135-145 [place] 491452-06-28 11:17:00 Test Item Value Reference Range Interpretation Comments Potassium Lvl (test code = Potassium 5.2 3.5-5.1 Lvl) [place] 491452-06-28 11:17:00 Test Item Value Reference Range Interpretation Comments Chloride Lvl (test code = Chloride Lvl) 93 95-109 [place] 491452-06-28 11:17:00 Test Item Value Reference Range Interpretation Comments CO2 (test code = CO2) 29 24-32 [place] 491452-06-28 11:17:00 Test Item Value Reference Range Interpretation Comments Calcium Lvl (test code = Calcium Lvl) 8.7 8.5-10.5 [place] 491452-06-28 11:17:00 Test Item Value Reference Range Interpretation Comments Total Protein (test code = Total 6.0 6.4-8.4 Protein) [place] 491452-06-28 11:17:00 Test Item Value Reference Range Interpretation Comments Albumin Lvl (test code = Albumin Lvl) 2.6 3.5-5.0 [place] 491452-06-28 11:17:00 Test Item Value Reference Range Interpretation Comments ALT (test code = ALT) 43 See_Comment [Auto mated message] The system which ge nerated this result transmit swathi reference range : <=65. The reference range was not used to interpr et this result as deny l/abnormal. [place] 491452-06-28 11:17:00 Test Item Value Reference Range Interpretation Comments AST (test code = AST) 35 See_Comment [Auto mated message] The system which ge nerated this result transmit swathi reference range : <=37. The reference range was not used to interpr et this result as deny l/abnormal. [place] 491452-06-28 11:17:00 Test Item Value Reference Range Interpretation Comments Alk Phos (test code = Alk Phos) 385 39-136 [place] 491452-06-28 11:17:00 Test Item Value Reference Range Interpretation Comments Bili Total (test code = Bili Total) 1.2 0.2-1.3 [facility]2022-06-28 11:17:00 Test Item Value Reference Range Interpretation Comments AGAP (test code = AGAP) 14.2 10.0-20.0 [facility]2022-06-28 11:17:00 Test Item Value Reference Range Interpretation Comments B/C Ratio (test code = B/C Ratio) 7 1 6-25 [facility]2022-06-28 11:17:00 Test Item Value Reference Range Interpretation Comments Globulin (test code = Globulin) 3.4 2.7-4.2 [facility]2022-06-28 11:17:00 Test Item Value Reference Range Interpretation Comments A/G Ratio (test code = A/G Ratio) 0.8 1 0.7-1.6 [facility]2022-06-28 11:17:00 Test Item Value Reference Range Interpretation Comments eGFR (test code = eGFR) 6 [facility]2022-06-28 11:17:00 Test Item Value Reference Range Interpretation Comments Magnesium Lvl (test code = Magnesium 1.9 1.8-2.4 Lvl) [facility]2022-06-28 11:17:00 Test Item Value Reference Range Interpretation Comments LDH (test code = LDH) 297 98-192 [facility]2022-06-28 11:17:00 Test Item Value Reference Range Interpretation Comments Procalcitonin Lvl (test 0.63 See_Comment [Au tomated message] code = Procalcitonin Lvl) Th e system which generated this result transmitted ref erence range: <=0.10. The reference range was not used to interpr et this result as normal/abnormal . [facility] HospitalQcrjblaUUWSRVUASS7296-51-21 11:17:00 Test Item Value Reference Range Interpretation Comments D-Dimer (test code = D-Dimer) 5.33 [facility] HospitalCtuqnhiYTYGTWANOF9815-66-71 11:17:00 Test Item Value Reference Range Interpretation Comments Hep Bs Ag (test code Negative *NA*(11/25/21 = Hep Bs Ag) 6:17 AM) [facility] HospitalKyjtpaxSDKXZTOYRU6655-69-37 11:17:00 Test Item Value Reference Range Interpretation Comments C-REACTIVE PROTEIN (test code = 134.0 C-REACTIVE PROTEIN) [facility] CenterZivohinGNRQGHZLZK5005-82-86 11:17:00 Test Item Value Reference Range Interpretation Comments Interleukin 6 (test code = Interleukin 25.99 6) [facility] [id number] 05:52:00 Test Item Value Reference Range Interpretation Comments RBC product (test code Product available = RBC product) 4(11/25/21 12:52 AM) [facility] [id number] 05:52:00 Test Item Value Reference Range Interpretation Comments RBC product (test code Product available = RBC product) 4(11/25/21 12:52 AM) [facility] [id number] 05:52:00 Test Item Value Reference Range Interpretation Comments RBC product (test code Product available = RBC product) 4(11/25/21 12:52 AM) [facility] [id number] 05:52:00 Test Item Value Reference Range Interpretation Comments RBC product (test code Product available = RBC product) 4(11/25/21 12:52 AM) [facility] CenterLolqaydQHPLVXNPLI2863-87-12 05:43:00 Test Item Value Reference Range Interpretation Comments Coronavirus (COVID-19) Detected MANUEL (test code = 8*ABN*(11/25/21 12:43 Coronavirus (COVID-19) AM) MANUEL) [facility] CenterLceeydbHBHCAXQZHD2324-34-59 05:43:00 Test Item Value Reference Range Interpretation Comments Coronavirus (COVID-19) Detected MANUEL (test code = 8*ABN*(11/25/21 12:43 Coronavirus (COVID-19) AM) MANUEL) [facility] CenterXesefwdYTRDXWUOLU7381-27-43 05:43:00 Test Item Value Reference Range Interpretation Comments Coronavirus (COVID-19) Detected MANUEL (test code = 8*ABN*(11/25/21 12:43 Coronavirus (COVID-19) AM) MANUEL) [facility] CenterXopqitbAGNDAVZSTN4478-46-84 05:43:00 Test Item Value Reference Range Interpretation Comments Coronavirus (COVID-19) Detected MANUEL (test code = 8*ABN*(11/25/21 12:43 Coronavirus (COVID-19) AM) MANUEL) [facility]2022-06-28 05:23:00 Test Item Value Reference Range Interpretation Comments Occult Bld Stl (test Negative (11/25/21 12:23 code = Occult Bld Stl) AM) [facility] [id number] 05:23:00 Test Item Value Reference Range Interpretation Comments Occult Bld Stl (test Negative (11/25/21 12:23 code = Occult Bld Stl) AM) [facility] AND [id number] 05:23:00 Test Item Value Reference Range Interpretation Comments Occult Bld Stl (test Negative (11/25/21 12:23 code = Occult Bld Stl) AM) [facility] [id number] 05:23:00 Test Item Value Reference Range Interpretation Comments Occult Bld Stl (test Negative (11/25/21 12:23 code = Occult Bld Stl) AM) [facility] [employer] [id number] 04:12:00 Test Item Value Reference Range Interpretation Comments ABO/Rh (test code = ABO/Rh) AB POS [facility] [employer] [id number] 04:12:00 Test Item Value Reference Range Interpretation Comments Antibody Scrn (test Negative (11/24/21 code = Antibody Scrn) 11:12 PM) [facility] [employer] [id number] 04:12:00 Test Item Value Reference Range Interpretation Comments Total CK (test code = Total CK) 86 12-191 [facility] [employer]2022-06-28 04:12:00 Test Item Value Reference Range Interpretation Comments HS Troponin I (test code = HS Troponin 316 I) [facility] [employer]2022-06-28 04:12:00 Test Item Value Reference Range Interpretation Comments Glucose Lvl (test code = Glucose Lvl) 261 70-99 [facility] [employer]2022-06-28 04:12:00 Test Item Value Reference Range Interpretation Comments BUN (test code = BUN) 60 7-22 [facility] [employer]2022-06-28 04:12:00 Test Item Value Reference Range Interpretation Comments Creatinine Lvl (test code = Creatinine 8.49 0.50-1.40 Lvl) [facility] [employer]2022-06-28 04:12:00 Test Item Value Reference Range Interpretation Comments Sodium Lvl (test code = Sodium Lvl) 133 135-145 [place] 491452-06-28 04:12:00 Test Item Value Reference Range Interpretation Comments Potassium Lvl (test code = Potassium 4.9 3.5-5.1 Lvl) [place] 491452-06-28 04:12:00 Test Item Value Reference Range Interpretation Comments Chloride Lvl (test code = Chloride Lvl) 93 95-109 [place] 491452-06-28 04:12:00 Test Item Value Reference Range Interpretation Comments CO2 (test code = CO2) 31 24-32 [place] 491452-06-28 04:12:00 Test Item Value Reference Range Interpretation Comments Calcium Lvl (test code = Calcium Lvl) 9.1 8.5-10.5 [place] 491452-06-28 04:12:00 Test Item Value Reference Range Interpretation Comments Total Protein (test code = Total 6.8 6.4-8.4 Protein) [place] 491452-06-28 04:12:00 Test Item Value Reference Range Interpretation Comments Albumin Lvl (test code = Albumin Lvl) 2.5 3.5-5.0 [place] 491452-06-28 04:12:00 Test Item Value Reference Range Interpretation Comments ALT (test code = ALT) 51 See_Comment [Auto mated message] The system which ge nerated this result transmit swathi reference range : <=65. The reference range was not used to interpr et this result as deny l/abnormal. [place] 491452-06-28 04:12:00 Test Item Value Reference Range Interpretation Comments AST (test code = AST) 36 See_Comment [Auto mated message] The system which ge nerated this result transmit swathi reference range : <=37. The reference range was not used to interpr et this result as deny l/abnormal. [facility] HospitalTask [facility]ting Inc[facility] [id number] 04:12:00 Test Item Value Reference Range Interpretation Comments Alk Phos (test code = Alk Phos) 383 39-136 [place] 491452-06-28 04:12:00 Test Item Value Reference Range Interpretation Comments Bili Total (test code = Bili Total) 1.1 0.2-1.3 [place] 491452-06-28 04:12:00 Test Item Value Reference Range Interpretation Comments AGAP (test code = AGAP) 13.9 10.0-20.0 [place] 491452-06-28 04:12:00 Test Item Value Reference Range Interpretation Comments B/C Ratio (test code = B/C Ratio) 7 1 6-25 [place] 491452-06-28 04:12:00 Test Item Value Reference Range Interpretation Comments Globulin (test code = Globulin) 4.3 2.7-4.2 [place] 491452-06-28 04:12:00 Test Item Value Reference Range Interpretation Comments A/G Ratio (test code = A/G Ratio) 0.6 1 0.7-1.6 [place] 491452-06-28 04:12:00 Test Item Value Reference Range Interpretation Comments eGFR (test code = eGFR) 5 [place] 491452-06-28 04:12:00 Test Item Value Reference Range Interpretation Comments Procalcitonin Lvl (test 0.69 See_Comment [Au tomated message] code = Procalcitonin Lvl) Th e system which generated this result transmitted ref erence range: <=0.10. The reference range was not used to interpr et this result as normal/abnormal . [place] 841442-06-28 04:12:00 Test Item Value Reference Range Interpretation Comments WBC (test code = WBC) 4.1 3.7-10.4 [place] [address]-06-28 04:12:00 Test Item Value Reference Range Interpretation Comments RBC (test code = RBC) 1.78 4.70-6.10 [place] [address]-06-28 04:12:00 Test Item Value Reference Range Interpretation Comments Hgb (test code = Hgb) 6.5 14.0-18.0 [place] [address]-06-28 04:12:00 Test Item Value Reference Range Interpretation Comments Hct (test code = Hct) 19.5 42.0-54.0 [place] [address]-06-28 04:12:00 Test Item Value Reference Range Interpretation Comments MCV (test code = MCV) 110.0 80.0-94.0 [place] 142[address]-06-28 04:12:00 Test Item Value Reference Range Interpretation Comments MCH (test code = MCH) 36.5 pg 27.0-31.0 [facility] HospitalGhepcrySSKXMDJTIS7779-08-84 04:12:00 Test Item Value Reference Range Interpretation Comments MCHC (test code = MCHC) 33.2 32.0-36.0 [facility] HospitalUzzyjtjDASQUUTPRE9879-92-77 04:12:00 Test Item Value Reference Range Interpretation Comments RDW (test code = RDW) 19.0 11.5-14.5 [facility] HospitalBmmduzsFNLKKJDAMI1299-62-08 04:12:00 Test Item Value Reference Range Interpretation Comments Platelet (test code = Platelet) 180 133-450 [facility] HospitalRcqaowjCEKKWYMKSF4742-85-07 04:12:00 Test Item Value Reference Range Interpretation Comments MPV (test code = MPV) 8.3 7.4-10.4 [facility] HospitalVlwvztwSFNANAWFZV0475-04-04 04:12:00 Test Item Value Reference Range Interpretation Comments PTT (test code = PTT) 45.4 s 22.9-35.8 [facility] HospitalPuaqqnuCOGUDBFWUX3650-29-40 04:12:00 Test Item Value Reference Range Interpretation Comments PT (test code = PT) 19.1 s 12.0-14.7 [facility] HospitalSblswwrMWFTHSSFWT0823-82-73 04:12:00 Test Item Value Reference Range Interpretation Comments INR (test code = INR) 1.62 1 0.85-1.17 [facility] HospitalIfvlwpwPAHPGARCVT9863-93-39 04:12:00 Test Item Value Reference Range Interpretation Comments RBC Morph (test code = See Note (11/24/21 RBC Morph) 11:12 PM) [facility] HospitalArqjuqoFRAQQZXXGB9381-37-25 04:12:00 Test Item Value Reference Range Interpretation Comments Plt Morph (test code = Normal (11/24/21 11:12 Plt Morph) PM) [facility] HospitalQhcwhnrWPKHCFYQZA7493-62-14 04:12:00 Test Item Value Reference Range Interpretation Comments Segs (test code = Segs) 72.2 45.0-75.0 [facility] HospitalBxjzhioNKKJOVGJFQ3959-00-19 04:12:00 Test Item Value Reference Range Interpretation Comments Lymphocytes (test code = Lymphocytes) 16.2 20.0-40.0 [place] 841442-06-28 04:12:00 Test Item Value Reference Range Interpretation Comments Monocytes (test code = Monocytes) 8.0 2.0-12.0 [facility] HospitalUgkwgsdKKDHNODYVV1838-52-33 04:12:00 Test Item Value Reference Range Interpretation Comments Eosinophils (test code = 2.7 See_Comment [A utomated message] The Eosinophils) system which ge nerated this result tra nsmitted reference range : <=4.0. The reference r samantha was not used to int erpret this result as normal/abnormal . [facility] HospitalRrnqgktAPMMJVPSMS9980-90-51 04:12:00 Test Item Value Reference Range Interpretation Comments Basophils (test code = 0.9 See_Comment [Aut omated message] The Basophils) system which ge nerated this result tra nsmitted reference range : <=1.0. The reference r samantha was not used to int erpret this result as normal/abnormal . [facility] HospitalGttzwptYSPWMLRLSU2778-92-54 04:12:00 Test Item Value Reference Range Interpretation Comments Neutrophils # (test code = Neutrophils 2.9 1.5-8.1 #) [facility] HospitalUbspouwPAYLVIUWWA3159-75-15 04:12:00 Test Item Value Reference Range Interpretation Comments Lymphocytes # (test code = Lymphocytes 0.7 1.0-5.5 #) [facility] HospitalAufezemASVIWFSSMN0787-11-04 04:12:00 Test Item Value Reference Range Interpretation Comments Monocytes # (test code 0.3 See_Comment [Aut omated message] The = Monocytes #) system which generated this result tra nsmitted reference range : <=0.8. The reference r samantha was not used to int erpret this result as normal/abnormal . [facility] HospitalMbiqvbuBTBROFSMER7725-87-18 04:12:00 Test Item Value Reference Range Interpretation Comments Eosinophils # (test code 0.1 See_Comment [A utomated message] The = Eosinophils #) system whic h generated this result tra nsmitted reference range : <=0.5. The reference r samantha was not used to int erpret this result as normal/abnormal . [facility] HospitalEjrpluxGLOJHBQWKA4630-07-21 04:12:00 Test Item Value Reference Range Interpretation Comments Anisocyte (test code = 1+ *ABN*(11/24/21 Anisocyte) 11:12 PM) [place] 841442-06-28 04:12:00 Test Item Value Reference Range Interpretation Comments Macrocyte (test code = 1+ *ABN*(11/24/21 Macrocyte) 11:12 PM) [facility]YudvapeERDGEWGGZK7041-57-85 04:12:00 Test Item Value Reference Range Interpretation Comments Microcyte (test code = 1+ *ABN*(11/24/21 Microcyte) 11:12 PM) [facility] [employer] [id number] 04:12:00 Test Item Value Reference Range Interpretation Comments ABO/Rh (test code = ABO/Rh) AB POS [facility] [employer] UUWVEWY9474-09-09 04:12:00 Test Item Value Reference Range Interpretation Comments Antibody Scrn (test Negative (11/24/21 code = Antibody Scrn) 11:12 PM) [facility] [employer] GUAARYM9375-08-91 04:12:00 Test Item Value Reference Range Interpretation Comments Total CK (test code = Total CK) 86 12-191 [facility] CenterKidblog NSBTDZK2784-31-91 04:12:00 Test Item Value Reference Range Interpretation Comments HS Troponin I (test code = HS Troponin 316 I) [facility] [employer] [id number] 04:12:00 Test Item Value Reference Range Interpretation Comments Glucose Lvl (test code = Glucose Lvl) 261 70-99 [facility] [employer]2022-06-28 04:12:00 Test Item Value Reference Range Interpretation Comments BUN (test code = BUN) 60 7-22 [facility] [employer] [id number] 04:12:00 Test Item Value Reference Range Interpretation Comments Creatinine Lvl (test code = Creatinine 8.49 0.50-1.40 Lvl) [facility] [employer] [id number] 04:12:00 Test Item Value Reference Range Interpretation Comments Sodium Lvl (test code = Sodium Lvl) 133 135-145 [facility] [employer]2022-06-28 04:12:00 Test Item Value Reference Range Interpretation Comments Potassium Lvl (test code = Potassium 4.9 3.5-5.1 Lvl) [facility] [employer] CNEZK3097-05-28 04:12:00 Test Item Value Reference Range Interpretation Comments Chloride Lvl (test code = Chloride Lvl) 93 95-109 [facility] [employer]2022-06-28 04:12:00 Test Item Value Reference Range Interpretation Comments CO2 (test code = CO2) 31 24-32 [facility] CenterActionTax[facility]ca [id number] 04:12:00 Test Item Value Reference Range Interpretation Comments Calcium Lvl (test code = Calcium Lvl) 9.1 8.5-10.5 [facility] LCSZM0567-80-00 04:12:00 Test Item Value Reference Range Interpretation Comments Total Protein (test code = Total 6.8 6.4-8.4 Protein) [facility] [id number] 04:12:00 Test Item Value Reference Range Interpretation Comments Albumin Lvl (test code = Albumin Lvl) 2.5 3.5-5.0 [facility] [id number] 04:12:00 Test Item Value Reference Range Interpretation Comments ALT (test code = ALT) 51 See_Comment [Auto mated message] The system which ge nerated this result transmit swathi reference range : <=65. The reference range was not used to interpr et this result as deny l/abnormal. [facility] [id number] 04:12:00 Test Item Value Reference Range Interpretation Comments AST (test code = AST) 36 See_Comment [Auto mated message] The system which ge nerated this result transmit swathi reference range : <=37. The reference range was not used to interpr et this result as deny l/abnormal. [facility] [id number] 04:12:00 Test Item Value Reference Range Interpretation Comments Alk Phos (test code = Alk Phos) 383 39-136 [facility] [id number] 04:12:00 Test Item Value Reference Range Interpretation Comments Bili Total (test code = Bili Total) 1.1 0.2-1.3 [facility] [id number] 04:12:00 Test Item Value Reference Range Interpretation Comments AGAP (test code = AGAP) 13.9 10.0-20.0 [facility] [employer] [id number] 04:12:00 Test Item Value Reference Range Interpretation Comments B/C Ratio (test code = B/C Ratio) 7 1 6-25 [facility] [id number] 04:12:00 Test Item Value Reference Range Interpretation Comments Globulin (test code = Globulin) 4.3 2.7-4.2 [facility] [employer] [id number] 04:12:00 Test Item Value Reference Range Interpretation Comments A/G Ratio (test code = A/G Ratio) 0.6 1 0.7-1.6 [facility] [id number] 04:12:00 Test Item Value Reference Range Interpretation Comments eGFR (test code = eGFR) 5 [facility] [id number] 04:12:00 Test Item Value Reference Range Interpretation Comments Procalcitonin Lvl (test 0.69 See_Comment [Au tomated message] code = Procalcitonin Lvl) Th e system which generated this result transmitted ref erence range: <=0.10. The reference range was not used to interpr et this result as normal/abnormal . [facility] HospitalLidynffMKDMLULUTH8692-71-25 04:12:00 Test Item Value Reference Range Interpretation Comments WBC (test code = WBC) 4.1 3.7-10.4 [place] 841442-06-28 04:12:00 Test Item Value Reference Range Interpretation Comments RBC (test code = RBC) 1.78 4.70-6.10 [facility] HospitalLfuqerdQUUOHPVFWK2064-57-45 04:12:00 Test Item Value Reference Range Interpretation Comments Hgb (test code = Hgb) 6.5 14.0-18.0 [facility] HospitalEudfycaKIPBCVJYOK0620-73-14 04:12:00 Test Item Value Reference Range Interpretation Comments Hct (test code = Hct) 19.5 42.0-54.0 [place] 841442-06-28 04:12:00 Test Item Value Reference Range Interpretation Comments MCV (test code = MCV) 110.0 80.0-94.0 [place] 841442-06-28 04:12:00 Test Item Value Reference Range Interpretation Comments MCH (test code = MCH) 36.5 pg 27.0-31.0 [facility] HospitalAvsfpsfAPVMSDOXMK7848-00-24 04:12:00 Test Item Value Reference Range Interpretation Comments MCHC (test code = MCHC) 33.2 32.0-36.0 [place] 841442-06-28 04:12:00 Test Item Value Reference Range Interpretation Comments RDW (test code = RDW) 19.0 11.5-14.5 [place] 841442-06-28 04:12:00 Test Item Value Reference Range Interpretation Comments Platelet (test code = Platelet) 180 133-450 [facility] HospitalWzctlhlDSFCOMTKAT6132-33-65 04:12:00 Test Item Value Reference Range Interpretation Comments MPV (test code = MPV) 8.3 7.4-10.4 [facility] HospitalZvybceyGXHZZIFAHD0016-10-75 04:12:00 Test Item Value Reference Range Interpretation Comments PTT (test code = PTT) 45.4 s 22.9-35.8 [place] 841442-06-28 04:12:00 Test Item Value Reference Range Interpretation Comments PT (test code = PT) 19.1 s 12.0-14.7 [place] [address]-06-28 04:12:00 Test Item Value Reference Range Interpretation Comments INR (test code = INR) 1.62 1 0.85-1.17 [place] 841442-06-28 04:12:00 Test Item Value Reference Range Interpretation Comments RBC Morph (test code = See Note (11/24/21 RBC Morph) 11:12 PM) [place] 841442-06-28 04:12:00 Test Item Value Reference Range Interpretation Comments Plt Morph (test code = Normal (11/24/21 11:12 Plt Morph) PM) [facility] HospitalNgosgiiQNOBSHAIFU2083-05-23 04:12:00 Test Item Value Reference Range Interpretation Comments Segs (test code = Segs) 72.2 45.0-75.0 [place] 841442-06-28 04:12:00 Test Item Value Reference Range Interpretation Comments Lymphocytes (test code = Lymphocytes) 16.2 20.0-40.0 [place] 841442-06-28 04:12:00 Test Item Value Reference Range Interpretation Comments Monocytes (test code = Monocytes) 8.0 2.0-12.0 [place] [address]-06-28 04:12:00 Test Item Value Reference Range Interpretation Comments Eosinophils (test code = 2.7 See_Comment [A utomated message] The Eosinophils) system which ge nerated this result tra nsmitted reference range : <=4.0. The reference r samantha was not used to int erpret this result as normal/abnormal . [facility] HospitalUzolauxLLOTHDVKTZ9755-18-32 04:12:00 Test Item Value Reference Range Interpretation Comments Basophils (test code = 0.9 See_Comment [Aut omated message] The Basophils) system which ge nerated this result tra nsmitted reference range : <=1.0. The reference r samantha was not used to int erpret this result as normal/abnormal . [facility] HospitalNuhvqawMERLSCPWII4537-74-88 04:12:00 Test Item Value Reference Range Interpretation Comments Neutrophils # (test code = Neutrophils 2.9 1.5-8.1 #) [facility] HospitalKexmmoeXUWTAYWADD5924-42-95 04:12:00 Test Item Value Reference Range Interpretation Comments Lymphocytes # (test code = Lymphocytes 0.7 1.0-5.5 #) [facility] HospitalFypbwtpCTDZRJWMNO2587-48-00 04:12:00 Test Item Value Reference Range Interpretation Comments Monocytes # (test code 0.3 See_Comment [Aut omated message] The = Monocytes #) system which generated this result tra nsmitted reference range : <=0.8. The reference r samantha was not used to int erpret this result as normal/abnormal . [facility] HospitalJxdqepjUSAZLSTHRX3015-66-57 04:12:00 Test Item Value Reference Range Interpretation Comments Eosinophils # (test code 0.1 See_Comment [A utomated message] The = Eosinophils #) system whic h generated this result tra nsmitted reference range : <=0.5. The reference r samantha was not used to int erpret this result as normal/abnormal . [facility] HospitalPjnqnmkBRTBLRDHDP6885-99-18 04:12:00 Test Item Value Reference Range Interpretation Comments Anisocyte (test code = 1+ *ABN*(11/24/21 Anisocyte) 11:12 PM) [facility] HospitalYqfqummHCEKCRJYXQ0146-53-33 04:12:00 Test Item Value Reference Range Interpretation Comments Macrocyte (test code = 1+ *ABN*(11/24/21 Macrocyte) 11:12 PM) [facility] HospitalEbhvhtaDIJPPCIXID1035-56-32 04:12:00 Test Item Value Reference Range Interpretation Comments Microcyte (test code = 1+ *ABN*(11/24/21 Microcyte) 11:12 PM) [facility] [id number] 04:12:00 Test Item Value Reference Range Interpretation Comments ABO/Rh (test code = ABO/Rh) AB POS [facility] [id number] 04:12:00 Test Item Value Reference Range Interpretation Comments Antibody Scrn (test Negative (11/24/21 code = Antibody Scrn) 11:12 PM) [facility] [id number] 04:12:00 Test Item Value Reference Range Interpretation Comments Total CK (test code = Total CK) 86 12-191 [facility] IUFTCXX6617-04-06 04:12:00 Test Item Value Reference Range Interpretation Comments HS Troponin I (test code = HS Troponin 316 I) [facility] [id number] 04:12:00 Test Item Value Reference Range Interpretation Comments Glucose Lvl (test code = Glucose Lvl) 261 70-99 [facility] [id number] 04:12:00 Test Item Value Reference Range Interpretation Comments BUN (test code = BUN) 60 7-22 [facility] HospitalTask [facility] [id number] 04:12:00 Test Item Value Reference Range Interpretation Comments Creatinine Lvl (test code = Creatinine 8.49 0.50-1.40 Lvl) [facility] [id number] 04:12:00 Test Item Value Reference Range Interpretation Comments Sodium Lvl (test code = Sodium Lvl) 133 135-145 [facility] [id number] 04:12:00 Test Item Value Reference Range Interpretation Comments Potassium Lvl (test code = Potassium 4.9 3.5-5.1 Lvl) [facility] Hospital[facility] Inc[facility] [id number] 04:12:00 Test Item Value Reference Range Interpretation Comments Chloride Lvl (test code = Chloride Lvl) 93 95-109 [facility] Hospital[facility] Inc[facility] [id number] 04:12:00 Test Item Value Reference Range Interpretation Comments CO2 (test code = CO2) 31 24-32 [facility] [id number] 04:12:00 Test Item Value Reference Range Interpretation Comments Calcium Lvl (test code = Calcium Lvl) 9.1 8.5-10.5 [facility] Hospital[facility] [id number] 04:12:00 Test Item Value Reference Range Interpretation Comments Total Protein (test code = Total 6.8 6.4-8.4 Protein) [facility] Hospital[facility] Inc[facility] [id number] 04:12:00 Test Item Value Reference Range Interpretation Comments Albumin Lvl (test code = Albumin Lvl) 2.5 3.5-5.0 [facility] [employer] [id number] 04:12:00 Test Item Value Reference Range Interpretation Comments ALT (test code = ALT) 51 See_Comment [Auto mated message] The system which ge nerated this result transmit swathi reference range : <=65. The reference range was not used to interpr et this result as deny l/abnormal. [facility] [employer] [id number] 04:12:00 Test Item Value Reference Range Interpretation Comments AST (test code = AST) 36 See_Comment [Auto mated message] The system which ge nerated this result transmit swathi reference range : <=37. The reference range was not used to interpr et this result as deny l/abnormal. [facility] [employer] [id number] 04:12:00 Test Item Value Reference Range Interpretation Comments Alk Phos (test code = Alk Phos) 383 39-136 [facility] [employer] [id number] 04:12:00 Test Item Value Reference Range Interpretation Comments Bili Total (test code = Bili Total) 1.1 0.2-1.3 [facility] [employer] [id number] 04:12:00 Test Item Value Reference Range Interpretation Comments AGAP (test code = AGAP) 13.9 10.0-20.0 [facility] [employer] [id number] 04:12:00 Test Item Value Reference Range Interpretation Comments B/C Ratio (test code = B/C Ratio) 7 1 6-25 [facility] [employer] [id number] 04:12:00 Test Item Value Reference Range Interpretation Comments Globulin (test code = Globulin) 4.3 2.7-4.2 [facility] [employer] [id number] 04:12:00 Test Item Value Reference Range Interpretation Comments A/G Ratio (test code = A/G Ratio) 0.6 1 0.7-1.6 [facility] [employer] [id number] 04:12:00 Test Item Value Reference Range Interpretation Comments eGFR (test code = eGFR) 5 [facility] [employer] [id number] 04:12:00 Test Item Value Reference Range Interpretation Comments Procalcitonin Lvl (test 0.69 See_Comment [Au tomated message] code = Procalcitonin Lvl) Th e system which generated this result transmitted ref erence range: <=0.10. The reference range was not used to interpr et this result as normal/abnormal . [facility] HospitalXtrmuqcPZQLAFFFOX2548-52-18 04:12:00 Test Item Value Reference Range Interpretation Comments WBC (test code = WBC) 4.1 3.7-10.4 [facility] HospitalKjumfxmCCYUPMOMPN5017-68-21 04:12:00 Test Item Value Reference Range Interpretation Comments RBC (test code = RBC) 1.78 4.70-6.10 [facility] HospitalCuheeflJXXACBIEBK5029-58-89 04:12:00 Test Item Value Reference Range Interpretation Comments Hgb (test code = Hgb) 6.5 14.0-18.0 [facility] HospitalXlpwaxpFGNXYCVDSR7378-90-46 04:12:00 Test Item Value Reference Range Interpretation Comments Hct (test code = Hct) 19.5 42.0-54.0 [facility] HospitalKxqjglhKLBNVTGHHG4276-42-44 04:12:00 Test Item Value Reference Range Interpretation Comments MCV (test code = MCV) 110.0 80.0-94.0 [facility] HospitalSlstuuiOBROBIPZTG6384-14-80 04:12:00 Test Item Value Reference Range Interpretation Comments MCH (test code = MCH) 36.5 pg 27.0-31.0 [facility] HospitalKvjceyjKJPBRBPYCG8165-72-20 04:12:00 Test Item Value Reference Range Interpretation Comments MCHC (test code = MCHC) 33.2 32.0-36.0 [facility] HospitalSdmdhuvKVBDJLGUNW4774-49-27 04:12:00 Test Item Value Reference Range Interpretation Comments RDW (test code = RDW) 19.0 11.5-14.5 [place] 841442-06-28 04:12:00 Test Item Value Reference Range Interpretation Comments Platelet (test code = Platelet) 180 133-450 [facility] HospitalNcfkjulHMMPFJZLHI6194-16-79 04:12:00 Test Item Value Reference Range Interpretation Comments MPV (test code = MPV) 8.3 7.4-10.4 [facility] HospitalXlxozdpZNKSFDVPRU6625-22-20 04:12:00 Test Item Value Reference Range Interpretation Comments PTT (test code = PTT) 45.4 s 22.9-35.8 [facility] HospitalHsblbfiFQRXVVLVFP6862-19-84 04:12:00 Test Item Value Reference Range Interpretation Comments PT (test code = PT) 19.1 s 12.0-14.7 [facility] HospitalTruvfnoRFGIYKEWKG9163-31-74 04:12:00 Test Item Value Reference Range Interpretation Comments INR (test code = INR) 1.62 1 0.85-1.17 [facility] HospitalUusqhjiKCAGNEPADO6834-58-12 04:12:00 Test Item Value Reference Range Interpretation Comments RBC Morph (test code = See Note (11/24/21 RBC Morph) 11:12 PM) [facility] HospitalVrfyrjpGIVIQDTOWI4723-26-47 04:12:00 Test Item Value Reference Range Interpretation Comments Plt Morph (test code = Normal (11/24/21 11:12 Plt Morph) PM) [facility] HospitalOzuvtqySQNWSZAJHQ3418-46-06 04:12:00 Test Item Value Reference Range Interpretation Comments Segs (test code = Segs) 72.2 45.0-75.0 [place] 841442-06-28 04:12:00 Test Item Value Reference Range Interpretation Comments Lymphocytes (test code = Lymphocytes) 16.2 20.0-40.0 [facility] HospitalYowtxpjSJGRADAIHR6374-08-85 04:12:00 Test Item Value Reference Range Interpretation Comments Monocytes (test code = Monocytes) 8.0 2.0-12.0 [facility] HospitalSaoiqciAHKHZKBVOI1023-37-51 04:12:00 Test Item Value Reference Range Interpretation Comments Eosinophils (test code = 2.7 See_Comment [A utomated message] The Eosinophils) system which ge nerated this result tra nsmitted reference range : <=4.0. The reference r samantha was not used to int erpret this result as normal/abnormal . [facility] HospitalEfzlmpgBTUGNTTHRR9442-81-28 04:12:00 Test Item Value Reference Range Interpretation Comments Basophils (test code = 0.9 See_Comment [Aut omated message] The Basophils) system which ge nerated this result tra nsmitted reference range : <=1.0. The reference r samantha was not used to int erpret this result as normal/abnormal . [facility] HospitalDzaosiyGSNTTPHTET3512-67-88 04:12:00 Test Item Value Reference Range Interpretation Comments Neutrophils # (test code = Neutrophils 2.9 1.5-8.1 #) [facility] HospitalOisdjlmXWSOJZAPJK9991-05-77 04:12:00 Test Item Value Reference Range Interpretation Comments Lymphocytes # (test code = Lymphocytes 0.7 1.0-5.5 #) [facility] HospitalXhrzifdHCTBTCFQCN2540-21-38 04:12:00 Test Item Value Reference Range Interpretation Comments Monocytes # (test code 0.3 See_Comment [Aut omated message] The = Monocytes #) system which generated this result tra nsmitted reference range : <=0.8. The reference r samantha was not used to int erpret this result as normal/abnormal . [facility] HospitalKroldyeKPGVMEAHAK3425-77-92 04:12:00 Test Item Value Reference Range Interpretation Comments Eosinophils # (test code 0.1 See_Comment [A utomated message] The = Eosinophils #) system whic h generated this result tra nsmitted reference range : <=0.5. The reference r samantha was not used to int erpret this result as normal/abnormal . [facility] HospitalGneujgsAEKEVKNQNP3096-15-89 04:12:00 Test Item Value Reference Range Interpretation Comments Anisocyte (test code = 1+ *ABN*(11/24/21 Anisocyte) 11:12 PM) [facility] HospitalKzmcihnILMIFMINKJ6461-83-55 04:12:00 Test Item Value Reference Range Interpretation Comments Macrocyte (test code = 1+ *ABN*(11/24/21 Macrocyte) 11:12 PM) [facility] CenterTwzjkmhMUOKCJEFNU3252-25-98 04:12:00 Test Item Value Reference Range Interpretation Comments Microcyte (test code = 1+ *ABN*(11/24/21 Microcyte) 11:12 PM) [facility] CenterSeahorse Bioscience [id number] 04:12:00 Test Item Value Reference Range Interpretation Comments ABO/Rh (test code = ABO/Rh) AB POS [facility] [employer] [id number] 04:12:00 Test Item Value Reference Range Interpretation Comments Antibody Scrn (test Negative (11/24/21 code = Antibody Scrn) 11:12 PM) [facility] CenterDreamDry [id number] 04:12:00 Test Item Value Reference Range Interpretation Comments Total CK (test code = Total CK) 86 12-191 [facility] CenterKid[facility] TCWWJAX8192-15-49 04:12:00 Test Item Value Reference Range Interpretation Comments HS Troponin I (test code = HS Troponin 316 I) [facility]ActionTax[facility] [id number] 04:12:00 Test Item Value Reference Range Interpretation Comments Glucose Lvl (test code = Glucose Lvl) 261 70-99 [place] 491452-06-28 04:12:00 Test Item Value Reference Range Interpretation Comments BUN (test code = BUN) 60 7-22 [place] 491452-06-28 04:12:00 Test Item Value Reference Range Interpretation Comments Creatinine Lvl (test code = Creatinine 8.49 0.50-1.40 Lvl) [place] 491452-06-28 04:12:00 Test Item Value Reference Range Interpretation Comments Sodium Lvl (test code = Sodium Lvl) 133 135-145 [place] [address]-06-28 04:12:00 Test Item Value Reference Range Interpretation Comments Potassium Lvl (test code = Potassium 4.9 3.5-5.1 Lvl) [place] 491452-06-28 04:12:00 Test Item Value Reference Range Interpretation Comments Chloride Lvl (test code = Chloride Lvl) 93 95-109 [place] 491452-06-28 04:12:00 Test Item Value Reference Range Interpretation Comments CO2 (test code = CO2) 31 24-32 [place] 491452-06-28 04:12:00 Test Item Value Reference Range Interpretation Comments Calcium Lvl (test code = Calcium Lvl) 9.1 8.5-10.5 [place] 491452-06-28 04:12:00 Test Item Value Reference Range Interpretation Comments Total Protein (test code = Total 6.8 6.4-8.4 Protein) [place] 491452-06-28 04:12:00 Test Item Value Reference Range Interpretation Comments Albumin Lvl (test code = Albumin Lvl) 2.5 3.5-5.0 [place] 491452-06-28 04:12:00 Test Item Value Reference Range Interpretation Comments ALT (test code = ALT) 51 See_Comment [Auto mated message] The system which ge nerated this result transmit swathi reference range : <=65. The reference range was not used to interpr et this result as deny l/abnormal. [place] 491452-06-28 04:12:00 Test Item Value Reference Range Interpretation Comments AST (test code = AST) 36 See_Comment [Auto mated message] The system which ge nerated this result transmit swathi reference range : <=37. The reference range was not used to interpr et this result as deny l/abnormal. [facility]Action[facility] [id number] 04:12:00 Test Item Value Reference Range Interpretation Comments Alk Phos (test code = Alk Phos) 383 39-136 [place] 491452-06-28 04:12:00 Test Item Value Reference Range Interpretation Comments Bili Total (test code = Bili Total) 1.1 0.2-1.3 [facility] CenterOwlet Baby CareANTHONY V[place]LE [id number] 04:12:00 Test Item Value Reference Range Interpretation Comments AGAP (test code = AGAP) 13.9 10.0-20.0 [facility] CenterOw[facility] Baby CareANTHONY [place]LE [id number] 04:12:00 Test Item Value Reference Range Interpretation Comments B/C Ratio (test code = B/C Ratio) 7 1 6-25 [place] [address]-06-28 04:12:00 Test Item Value Reference Range Interpretation Comments Globulin (test code = Globulin) 4.3 2.7-4.2 [facility] CenterAction[facility] [id number] 04:12:00 Test Item Value Reference Range Interpretation Comments A/G Ratio (test code = A/G Ratio) 0.6 1 0.7-1.6 [place] 491452-06-28 04:12:00 Test Item Value Reference Range Interpretation Comments eGFR (test code = eGFR) 5 [place] 491452-06-28 04:12:00 Test Item Value Reference Range Interpretation Comments Procalcitonin Lvl (test 0.69 See_Comment [Au tomated message] code = Procalcitonin Lvl) Th e system which generated this result transmitted ref erence range: <=0.10. The reference range was not used to interpr et this result as normal/abnormal . [facility] HospitalZarphlrJYVETPXWFK6576-31-58 04:12:00 Test Item Value Reference Range Interpretation Comments WBC (test code = WBC) 4.1 3.7-10.4 [place] 841442-06-28 04:12:00 Test Item Value Reference Range Interpretation Comments RBC (test code = RBC) 1.78 4.70-6.10 [place] 841442-06-28 04:12:00 Test Item Value Reference Range Interpretation Comments Hgb (test code = Hgb) 6.5 14.0-18.0 [facility] HospitalVzgsreqNTHGDMYRJK8958-22-75 04:12:00 Test Item Value Reference Range Interpretation Comments Hct (test code = Hct) 19.5 42.0-54.0 [facility] HospitalBhuzhgqLIDVTROHAX3214-95-51 04:12:00 Test Item Value Reference Range Interpretation Comments MCV (test code = MCV) 110.0 80.0-94.0 [facility] HospitalPsuqdimDSAHAHKFDK8580-40-28 04:12:00 Test Item Value Reference Range Interpretation Comments MCH (test code = MCH) 36.5 pg 27.0-31.0 [facility] HospitalBvtgpfyRBLZNFQDDH0477-82-34 04:12:00 Test Item Value Reference Range Interpretation Comments MCHC (test code = MCHC) 33.2 32.0-36.0 [facility] HospitalUgxcwykATYAFVTMEE5357-61-40 04:12:00 Test Item Value Reference Range Interpretation Comments RDW (test code = RDW) 19.0 11.5-14.5 [facility] HospitalFennnygSJSRRYYDFM1675-03-27 04:12:00 Test Item Value Reference Range Interpretation Comments Platelet (test code = Platelet) 180 133-450 [facility] HospitalDvexzedZHRZRDGQZH9857-17-89 04:12:00 Test Item Value Reference Range Interpretation Comments MPV (test code = MPV) 8.3 7.4-10.4 [facility] HospitalWyqglxxMWKHODEAZP9826-88-18 04:12:00 Test Item Value Reference Range Interpretation Comments PTT (test code = PTT) 45.4 s 22.9-35.8 [facility] HospitalWdheqktUWLLPXWLCV0829-18-46 04:12:00 Test Item Value Reference Range Interpretation Comments PT (test code = PT) 19.1 s 12.0-14.7 [facility] HospitalYhmlakeOMOWYRJFTS9565-88-42 04:12:00 Test Item Value Reference Range Interpretation Comments INR (test code = INR) 1.62 1 0.85-1.17 [facility] HospitalLowdifnSXJLPVYVCQ2467-85-76 04:12:00 Test Item Value Reference Range Interpretation Comments RBC Morph (test code = See Note (11/24/21 RBC Morph) 11:12 PM) [facility] HospitalQtizjsiBKZSTVTLQT9628-72-60 04:12:00 Test Item Value Reference Range Interpretation Comments Plt Morph (test code = Normal (11/24/21 11:12 Plt Morph) PM) [place] 841442-06-28 04:12:00 Test Item Value Reference Range Interpretation Comments Segs (test code = Segs) 72.2 45.0-75.0 [place] 841442-06-28 04:12:00 Test Item Value Reference Range Interpretation Comments Lymphocytes (test code = Lymphocytes) 16.2 20.0-40.0 [place] [address]-06-28 04:12:00 Test Item Value Reference Range Interpretation Comments Monocytes (test code = Monocytes) 8.0 2.0-12.0 [place] 841442-06-28 04:12:00 Test Item Value Reference Range Interpretation Comments Eosinophils (test code = 2.7 See_Comment [A utomated message] The Eosinophils) system which ge nerated this result tra nsmitted reference range : <=4.0. The reference r samantha was not used to int erpret this result as normal/abnormal . [facility] HospitalQaleqzcPSIDIJRUNN9277-77-94 04:12:00 Test Item Value Reference Range Interpretation Comments Basophils (test code = 0.9 See_Comment [Aut omated message] The Basophils) system which ge nerated this result tra nsmitted reference range : <=1.0. The reference r samantha was not used to int erpret this result as normal/abnormal . [place] 841442-06-28 04:12:00 Test Item Value Reference Range Interpretation Comments Neutrophils # (test code = Neutrophils 2.9 1.5-8.1 #) [place] 841442-06-28 04:12:00 Test Item Value Reference Range Interpretation Comments Lymphocytes # (test code = Lymphocytes 0.7 1.0-5.5 #) [place] [address]-06-28 04:12:00 Test Item Value Reference Range Interpretation Comments Monocytes # (test code 0.3 See_Comment [Aut omated message] The = Monocytes #) system which generated this result tra nsmitted reference range : <=0.8. The reference r samantha was not used to int erpret this result as normal/abnormal . [place] 841442-06-28 04:12:00 Test Item Value Reference Range Interpretation Comments Eosinophils # (test code 0.1 See_Comment [A utomated message] The = Eosinophils #) system Dexetra[employer] h generated this result tra nsmitted reference range : <=0.5. The reference r samantha was not used to int erpret this result as normal/abnormal . [facility]ArhdcbsWYGBZJOGXK3638-24-40 04:12:00 Test Item Value Reference Range Interpretation Comments Anisocyte (test code = 1+ *ABN*(11/24/21 Anisocyte) 11:12 PM) [facility] CenterGgwugevYKAJMXLYUT8152-82-55 04:12:00 Test Item Value Reference Range Interpretation Comments Macrocyte (test code = 1+ *ABN*(11/24/21 Macrocyte) 11:12 PM) [facility] CenterPovqpmyOCFGDCXJBK0432-73-36 04:12:00 Test Item Value Reference Range Interpretation Comments Microcyte (test code = 1+ *ABN*(11/24/21 Microcyte) 11:12 PM) [facility] [id number] 00:00:00 Test Item Value Reference Range Interpretation Comments A1C (test code = 4548-4) 8.8 HEMOGLOBIN [id number] 00:00:00 Test Item Value Reference Range Interpretation Comments A1C (test code = 4548-4) 8.3 HEMOGLOBIN [id number] 00:00:00 Test Item Value Reference Range Interpretation Comments A1C (test code = 4548-4) 10.3
[2022-11-05 16:15] LABS: Absolute Lymphocytes (CBC) 0.9 K/uL (0.7-4.9); Hematocrit 20.7 % (39.6-49.0); Lymphocytes % 19.8 % (15.3-44.8); MPV 7.5 fL (7.6-11.3); RBC Red Blood Cell Count 2.41 M/uL (4.33-5.43)
[2022-11-05 16:27] LABS: Potassium 4.7 mEq/L (3.5-5.1)
[2022-11-05] MEDS ORDERED: HYDROCODONE/APAP 5/325 MG TAB ONE (18:16)
[2022-11-05] MEDS ORDERED: NA CHLORIDE 0.9% 250 ML ONE (18:42)
--- NOTE | 2022-11-05 20:16 | ER ---
Nurse's Notes [facility] Name: Guzman Mayers Age: 77 yrs Sex: Male : 1945 Arrival Date: 11/05/2022 Time: 15:38 Bed 19 Private MD: Diagnosis: Anemia, unspecified;End stage renal disease Presentation: 11/05 15:44 Chief complaint: EMS states: EMS toned out to home, family stated pt had abnormal labs eh3 but unsure of results, c/o nausea and constipation for last few days. Has L5 fracture from previous fall. EMS gave 4mg Zofran 2x and 50mcg Fentanyl en route, pt states pain is now 5/10 and nausea has improved. Coronavirus screen: Vaccine status: Patient reports receiving the 2nd dose of the covid vaccine. Ebola Screen: No symptoms or risks identified at this time. Initial Sepsis Screen: Does the patient meet any 2 criteria? No. Patient's initial sepsis screen is negative. Does the patient have a suspected source of infection? No. Patient's initial sepsis screen is negative. Risk Assessment: Do you want to hurt yourself or someone else? Patient reports no desire to harm self or others. Onset of symptoms was November 05, 2022. 15:44 Method Of Arrival: EMS: [facility] 15:44 Acuity: [facility] 3 eh3 Triage Assessment: 15:47 General: Appears in no apparent distress. uncomfortable, Behavior is calm, cooperative, eh3 appropriate for age. Pain: Complains of pain in back and abdomen. EENT: No signs and/or symptoms were reported regarding the EENT system. Neuro: Level of Consciousness is awake, alert, obeys commands, Oriented to person, place, time, situation. Cardiovascular: Capillary refill < 3 seconds Patient's skin is warm and dry. Respiratory: Airway is patent Respiratory effort is even, unlabored, Respiratory pattern is regular, symmetrical. GI: Abdomen is round non-distended, Reports lower abdominal pain, upper abdominal pain, constipation, nausea. : No signs and/or symptoms were reported regarding the genitourinary system. Derm: No signs and/or symptoms reported regarding the dermatologic system. Musculoskeletal: Circulation, motion, and sensation intact. Reports pain in back. Historical: - Allergies: 15:47 Codeine; eh3 15:47 GABAPENTIN; eh3 - Home Meds: 15:47 Dialyvite 800 800 mcg oral tablet,chewable daily [Active]; pantoprazole 40 mg oral eh3 tablet, delayed release (enteric coated) daily [Active]; atorvastatin 40 mg oral tablet daily [Active]; aspirin 81 mg Oral tablet, delayed release (enteric coated) 2 times per day [Active]; sevelamer carbonate 800 mg oral tablet 3 times per day [Active]; metoprolol tartrate 25 mg Oral tablet 0.5 tab 2 times per day [Active]; carvedilol 6.25 mg oral tablet 2 times per day [Active]; - PMHx: 15:47 ADD/ADHD; CHF; CKD; COPD; Diabetes - IDDM; Dialysis; MWF; dialysis tues, thurs, sat, eh3 uses o2 when sleeping.; High Cholesterol; HTN; Hypertension; - Immunization history:: Adult Immunizations up to date. - Social history:: Smoking status: unknown. Screenin:[address] [facility] ED Fall Risk Assessment (Adult) Score/Fall Risk Level 0 - 2 = Low Risk. Abuse eh3 screen: Denies threats or abuse. Denies injuries from another. Nutritional screening: No deficits noted. Tuberculosis screening: No symptoms or risk factors identified. Assessment: 15:44 Reassessment: No changes from previously documented assessment. See triage assessment. 3 16:45 Reassessment: Patient appears in no apparent distress at this time. Patient and/or 3 family updated on plan of care and expected duration. Pain level reassessed. Patient is alert, oriented x 3, equal unlabored respirations, skin warm/dry/pink. 17:45 Reassessment: Patient appears in no apparent distress at this time. Patient and/or 3 family updated on plan of care and expected duration. Pain level reassessed. Patient is alert, oriented x 3, equal unlabored respirations, skin warm/dry/pink. 18:45 Reassessment: Patient appears in no apparent distress at this time. Patient and/or 3 family updated on plan of care and expected duration. Pain level reassessed. Patient is alert, oriented x 3, equal unlabored respirations, skin warm/dry/pink. 18:55 Reassessment: Blood transfusion started; see blood product documentation form. 3 19:45 Reassessment: Patient appears in no apparent distress at this time. Patient and/or eh3 family updated on plan of care and expected duration. Pain level reassessed. Patient is alert, oriented x 3, equal unlabored respirations, skin warm/dry/pink. 20:15 Reassessment: Pt discharged, pending completion of blood transfusion, approximately eh3 100mL remains to be transfused. 20:45 Reassessment: Patient appears in no apparent distress at this time. Patient and/or eh3 family updated on plan of care and expected duration. Pain level reassessed. Patient is alert, oriented x 3, equal unlabored respirations, skin warm/dry/pink. Vital Signs: 15:44 BP 132 / 49; Pulse 57; Resp 16; Temp 98.4(IR); Pulse Ox 97% on 2 lpm NC; Weight 71.67 eh3 kg; Height 5 ft. 10 in. ; Pain 5/10; 16:45 BP 138 / 59; Pulse 57; Resp 16; Pulse Ox 98% on 2 lpm NC; eh3 17:45 BP 134 / 59; Pulse 53; Resp 16; Pulse Ox 99% on 2 lpm NC; eh3 18:45 BP 142 / 55; Pulse 57; Resp 18; Pulse Ox 100% on 2 lpm NC; eh3 19:45 BP 141 / 62; Pulse 57; Resp 15; Pulse Ox 98% on 2 lpm NC; eh3 20:45 BP 138 / 61; Pulse 57; Resp 16; Pulse Ox 100% on 2 lpm NC; eh3 21:20 BP 133 / 55; Pulse 56; Resp 14; Pulse Ox 100% ; ll3 15:44 Body Mass Index 22.67 (71.67 kg, 177.8 cm) 3 15:44 Pain Scale: Adult 3 ED Course: 15:44 Patient arrived in ED. eh3 15:44 Miller Cai DO is Attending Physician. ms3 15:44 Char De La Rosa, RN is Primary Nurse. eh3 15:44 Patient has correct armband on for positive identification. Bed in low position. Call 3 light in reach. Side rails up X2. Adult w/ patient. Client placed on continuous cardiac and pulse oximetry monitoring. NIBP monitoring applied. Door closed. Noise minimized. Lights dimmed. Warm blanket given. 15:44 Maintain EMS IV. Dressing intact. Good blood return noted. Site clean \T\ dry. Gauge \T\ 3 site: 20g LFA. 15:47 Triage completed. eh3 15:47 Arm band placed on. eh3 18:39 Consent for blood and/or blood product transfusion explained by physician, signed by 3 patient. 20:03 Attending Physician role handed off by Miller Cai DO ms3 20:03 Hilda Fortune MD is Attending Physician. ok3 20:15 Anita Sanchez MD is Referral Physician. sp3 21:20 No provider procedures requiring assistance completed. IV discontinued, intact, ll3 bleeding controlled, No redness/swelling at site. Pressure dressing applied. Administered Medications: 18:10 Drug: HYDROcodone-acetaminophen PO 5 mg-325 mg 1 tabs Route: PO; 3 21:19 Follow up: Response: No adverse reaction 3 21:14 Drug: [place] PO 10 mg-325 mg 1 tabs Route: PO; 3 21:14 Follow up: Response: Medication administered at discharge. 3 Medication: 18:55 Blood products: PRBCs X 1 unit given. See transfusion record. 3 21:20 VIS not applicable for this client. 3 Outcome: 20:15 Discharge ordered by . sp3 21:20 Discharged to home via wheelchair, with family. 3 21:20 Condition: stable 21:20 Discharge instructions given to patient, Instructed on discharge instructions, follow up and referral plans. Demonstrated understanding of instructions, follow-up care. 21:23 Patient left the ED. 3 Signatures: Miller Cai DO DO ms3 Hilda Fortune MD MD 3 Hu Cortez RN RN 3 Char De La Rosa, GILSON RN 3 Corrections: (The following items were deleted from the chart) 17:01 17:01 Char De La Rosa, RN is Primary Nurse. 3 3 21:36 18:45 BP 142 / 55; Pulse 57bpm; Resp 18bpm; Pulse Ox 100% RA; 3 eh3 21:36 19:45 BP 141 / 62; Pulse 57bpm; Resp 15bpm; Pulse Ox 98% RA; 3 3
--- NOTE | 2022-11-05 20:16 | EDPHYS ---
Physician Documentation [facility] Name: Guzman Mayers Age: 77 yrs Sex: Male : 1945 Arrival Date: 11/05/2022 Time: 15:38 Bed 19 Private MD: ED Physician Hilda Fortune HPI: 11/05 15:58 This 77 yrs old Male presents to ER via EMS with complaints of Abnormal Lab ms3 Results. 15:58 77-year-old male with past medical history of ADD/ADHD, congestive heart failure, ms3 chronic kidney disease, COPD, diabetes, dialysis Wednesday presents for hemoglobin of 7.2. Patient's family states patient received 2 blood transfusions on Wednesday. Patient denies pain at this time. Historical: - Allergies: 15:47 Codeine; eh3 15:47 GABAPENTIN; eh3 - Home Meds: 15:47 Dialyvite 800 800 mcg oral tablet,chewable daily [Active]; pantoprazole 40 mg oral eh3 tablet, delayed release (enteric coated) daily [Active]; atorvastatin 40 mg oral tablet daily [Active]; aspirin 81 mg Oral tablet, delayed release (enteric coated) 2 times per day [Active]; sevelamer carbonate 800 mg oral tablet 3 times per day [Active]; metoprolol tartrate 25 mg Oral tablet 0.5 tab 2 times per day [Active]; carvedilol 6.25 mg oral tablet 2 times per day [Active]; - PMHx: 15:47 ADD/ADHD; CHF; CKD; COPD; Diabetes - IDDM; Dialysis; MWF; dialysis tues, thurs, sat, eh3 uses o2 when sleeping.; High Cholesterol; HTN; Hypertension; - Immunization history:: Adult Immunizations up to date. - Social history:: Smoking status: unknown. ROS: 15:58 Constitutional: Negative for fever, and chills. Neck: Negative for injury, pain, and ms3 swelling, Cardiovascular: Negative for chest pain, and palpitations. Respiratory: Negative for shortness of breath, cough, wheezing, and pleuritic chest pain, Abdomen/GI: Negative for abdominal pain, nausea, vomiting, diarrhea, and constipation, MS/Extremity: Negative for injury and deformity, Skin: Negative for injury, rash, and discoloration. 15:58 All other systems are negative. Exam: 15:58 Constitutional: This is a well developed, well nourished patient who is awake, alert, ms3 and in no acute distress. Head/Face: Normocephalic, atraumatic. ENT: Nares patent. No nasal discharge, no septal abnormalities noted. Tympanic membranes are normal and external auditory canals are clear. Oropharynx with no redness, swelling, or masses, exudates, or evidence of obstruction, uvula midline. Mucous membranes moist. Neck: Trachea midline, no cervical lymphadenopathy. Supple, full range of motion without nuchal rigidity, or vertebral point tenderness. No Meningismus. Chest/axilla: Normal chest wall appearance and motion. Nontender with no deformity. Cardiovascular: Regular rate and rhythm with a normal S1 and S2. No gallops, murmurs, or rubs. Normal PMI, no JVD. No pulse deficits. Respiratory: Lungs have equal breath sounds bilaterally, clear to auscultation and percussion. No rales, rhonchi or wheezes noted. No increased work of breathing, no retractions or nasal flaring. Abdomen/GI: Soft, non-tender, with normal bowel sounds. No distension or tympany. No guarding or rebound. No evidence of tenderness throughout. Skin: Warm, dry with normal turgor. Normal color with no rashes, no lesions, and no evidence of cellulitis. 15:58 Musculoskeletal/extremity: Extremities: noted in the left arm: dialysis fistula. Vital Signs: 15:44 BP 132 / 49; Pulse 57; Resp 16; Temp 98.4(IR); Pulse Ox 97% on 2 lpm NC; Weight 71.67 eh3 kg; Height 5 ft. 10 in. ; Pain 5/10; 16:45 BP 138 / 59; Pulse 57; Resp 16; Pulse Ox 98% on 2 lpm NC; eh3 17:45 BP 134 / 59; Pulse 53; Resp 16; Pulse Ox 99% on 2 lpm NC; eh3 18:45 BP 142 / 55; Pulse 57; Resp 18; Pulse Ox 100% on 2 lpm NC; eh3 19:45 BP 141 / 62; Pulse 57; Resp 15; Pulse Ox 98% on 2 lpm NC; eh3 20:45 BP 138 / 61; Pulse 57; Resp 16; Pulse Ox 100% on 2 lpm NC; eh3 21:20 BP 133 / 55; Pulse 56; Resp 14; Pulse Ox 100% ; ll3 15:44 Body Mass Index 22.67 (71.67 kg, 177.8 cm) eh3 15:44 Pain Scale: Adult eh3 MDM: 15:57 Patient medically screened. ms3 15:58 Differential Diagnosis anemia vs lab error vs electrolyte abnormality. ms3 17:25 Management of patient was discussed with the following: Senior Product Designer: Nephrology, Dr glenn Billingsely. Patient has had full work up for blood loss. If hemodynamically stable patient can be discharged after transfusion.. 19:47 Data reviewed: vital signs, nurses notes, lab test result(s). I considered the ms3 following discharge prescriptions or medication management in the emergency department Medications were administered in the Emergency Department. See MAR. Historians other than the Patient: EMS: . Counseling: I had a detailed discussion with the patient and/or guardian regarding: the historical points, exam findings, and any diagnostic results supporting the discharge/admit diagnosis, lab results. 20:03 Transition of care: After a detail discussion of the patient's case, care is ms3 transferred to Hilda Fortune MD. 11/05 15:57 Order name: CBC with Diff; Complete Time: 16:44 ms3 11/05 15:57 Order name: BMP; Complete Time: 16:44 ms3 11/05 16:56 Order name: Bb Add On ms3 11/05 16:56 Order name: Type And Screen ms3 11/05 17:32 Order name: Packed RBC Leukored EDMS Administered Medications: 18:10 Drug: HYDROcodone-acetaminophen PO 5 mg-325 mg 1 tabs Route: PO; 3 21:19 Follow up: Response: No adverse reaction ll3 21:14 Drug: [place] PO 10 mg-325 mg 1 tabs Route: PO; eh3 21:14 Follow up: Response: Medication administered at discharge. eh3 Disposition Summary: 11/05/22 20:15 Discharge Ordered Location: Home sp3 Condition: Stable sp3 Diagnosis - Anemia, unspecified sp3 - End stage renal disease sp3 Followup: ms3 - With: - When: 1 - 2 days - Reason: Recheck today's complaints Discharge Instructions: - Discharge Summary Sheet ms3 - Anemia ms3 - Blood Transfusion, Adult ms3 Forms: - Medication Reconciliation Form sp3 - Thank You Letter sp3 - Antibiotic Education sp3 - Prescription Opioid Use sp3 Signatures: Dispatcher [employer] EDMS Bryan Harrington, AIR INTERCEPT CONTROLLER SUPERVISOR-C AIR INTERCEPT CONTROLLER SUPERVISOR-Cla1 Miller Cai DO DO ms3 Hilda Fortune MD MD sp3 Char De La Rosa RN RN eh3 Hu Cortez RN ll3
[2022-11-05] MEDS ORDERED: HYDROCODONE/APAP 10/325 TAB ONE (21:20)
[2022-11-05 21:40] VITALS: TEMP 98.4
[2022-11-05 21:46] VITALS: BP 133/55; O2SAT 100
== END 2022-11-05 21:23 | disposition home or self-care (01) ==
LOC: ER 15:38
PROC: 30233N1 Transfusion of Nonautologous Red Blood Cells into Peripheral Vein, Percutaneous Approach (ICD-10-PCS; principal; 2022-11-05)
DX: E11.22 Type 2 diabetes mellitus with diabetic chronic kidney disease (principal); I13.2 Hypertensive heart and chronic kidney disease with heart failure and with stage 5 chronic kidney disease, or end stage renal disease; I50.9 Heart failure, unspecified; N18.6 End stage renal disease; D63.1 Anemia in chronic kidney disease; Z99.2 Dependence on renal dialysis; Z79.82 Long term (current) use of aspirin; Z88.5 Allergy status to narcotic agent; Z88.8 Allergy status to other drugs, medicaments and biological substances
CPT/HCPCS: 85025; 80048; 36415; 86900; 86850; 86901; 36430; 99284; P9016; J7050

== ENCOUNTER 2022-11-08 19:57 | Observation (INO) | payer OTHER, BC ==
--- OUTSIDE RECORDS SUMMARY | 2022-11-08 20:23 | XMS REPORT | Continuity of Care Document ---
:1945 Author Organization [facility] t Address [address] [facility] [address] [place] [address] Care Team Providers Name Role Phone LA FORTUNE Primary Care Physician Unavailable La Fortune Attending Clinician Unavailable [id number] Attending Clinician Unavailable RONNIE AYALA Attending Clinician [...] Unavailable CHILANGO ARMSTRONG NATASHA Attending Clinician Unavailable [id number] Admitting Clinician Unavailable RONNIE AYALA Admitting Clinician Unavailable MINE MOSQUEDA Admitting Clinician Unavailable Mine Mosqueda DO Admitting Clinician ZACHARY BRUNO Admitting Clinician Unavailable Zachary Bruno Admitting Clinician Monse Velazquez Admitting Clinician [phone] MONSE VELAZQUEZ Admitting Clinician Unavailable CHILANGO ARMSTRONG NATASHA Admitting Clinician Unavailable Payers Payer Name Policy Type Policy Effective Date Expiration Date Sour ce Number MEDICARE PART A [id number] 2011 AND B 00:00:00 MEDICARE PART A [id number] 2010 \\T\\ B 00:00:00 BCBS TRADITIONAL [id number] 2014 00:00:00 [employer] Blue 6 [id number] 2014 [facility] 00:00:00 - [facility] [id number] BCTX BCTI [id number] MEDICARE NOVITAS [id number] 2011 [facility] 00:00:00 - [facility] MEDICARE NOVITAS [id number] 2011 [facility] 00:00:00 - [facility] MEDICARE NOVITAS [id number] 2011 [facility] 00:00:00 [facility] Problems Condition Condition Condition Status Onset Resolution Last Treating Co mments Source Name Details Category Date Date Treatment Clinician Date E46 E46 Disease Active Univers Unspecifie Unspecifie 5-16 it y of d severe d severe 00:00: [place] protein-ca protein-ca 00 Me dical ajay ajay Branch malnutriti malnutriti on on Elevated Elevated Disease Active Unive rs troponin I troponin I 5-14 it y of level level 00:00: [place] 00 Medical Branch Elevated Elevated Disease Active [...] 5-14 it y of on on 00:00: [place] [facility] Syncope Syncope Disease Active Univers 5-14 ity of 00:00: [place] [address] Medical Branch Anemia Anemia Disease Active Univers associated associated 5-14 it y of with with 00:00: [place] nutritiona nutritiona 00 Me dical l Branch deficiency deficiency Dyslipidem Dyslipidem Disease Active U nivers ia ia 5-14 ity of 00:00: [place] [facility] Bifascicul Bifascicul Disease Active U nivers ar block ar block 5-14 ity of 00:00: [place] [facility] Atrial Atrial Disease Active Univers flutter flutter 5-14 ity of 00:00: [place] [facility] Encephalop Encephalop Disease Active U nivers athy athy 5-14 ity of 00:00: [place] [facility] Hypoglycem Hypoglycem Disease Active U nivers ia ia 5-13 ity of 00:00: [place] [facility] LOW LOW Diagnosis Active 2022-01-02 [...] BREATHING Y 12-14 17:56:00 l BREATHING 00:00: [place] Active 00 12/14/2021 [facility] [place] ABNORNAL ABNORNAL Diagnosis Active 2021-12-16 [facility] LAB LAB Active 12-03 05:50:00 l 12/03/2021 08:00: Thomas moyer [facility] 00 [place] ANEMIA, ANEMIA, Diagnosis Active 2021-12-16 [facility] COVID-19 COVID-19 11-24 05:50:00 l Active 00:00: [place] 11/24/2021 [facility] [place] LOW LOW Diagnosis Active 2021-11-24 Mem oria HEMOGOBLIN HEMOGOBLIN 11-24 23:20:00 l Active 00:00: [place] 11/24/2021 00 [facility] [place] [facility] Cellulitis Cellulitis Disease Active U nivers of right of right 12-29 ity of leg leg 00:00: [address] [id number] Other Problem Common obesity Spirit due to - [facility] excess 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 - [facility] with [facility] Chronic Chronic Problem Common obstructiv obstructiv Sp jerome e lung e - [facility] Med[facility] l d COPD Center type [id number] Heart Problem Common failure, Spirit congestive - [facility]I , etiology [facility] [id number] Constipati Problem Com mon on, Spirit unspecifie - CHI d constipati [facility] on [facility] [place] [id number] Memory Problem Common impairment Spirit of gradual - CHI onset [facility] [id number] HTN, goal Problem Comm on below Spirit 130/80 - CHI [facility] [id number] Anemia of Problem Com mon chronic Spirit disease - CHI [facility] [id number] 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 Hypertensi Hypertensi Problem C ommon ve heart ve chronic Spir it AND kidney - CHI chronic disease St kidney with stage [facility] disease 5 chronic Medica l [...] ity of 00:00: [place] 00 Medical Branch gabapent gabapent Active Unknown Commo n in in [facility] codeine codeine Active Unknown Common [facility] codeine codeine Active Memoria l [place] gabapent gabapent Active Memori a in in l [place] Social History Social Habit Start Date Stop Date Quantity Comments Source History of tobacco Cigarette Smoker University of use [place] [facility] History SDOH University o f Alcohol Std Drinks [place] [facility] History SDOH University o f Alcohol Binge [place] Medic al Branch History SDOH Social Unive rsity of Connections [facility] Med ical Together Branch History SDOH Social Unive rsity of Connections [facility] Medical Branch History SDOH Social Unive rsity of Connections [place] Medical Membership Branch History SDOH Social Unive rsity of Connections [place] Medical Meetings Branch Alcohol intake 2022-10-31 2022-10-31 Ex-drinker University of 00:00:00 00:00:00 (finding) [place] [facility] History SDOH 2022-10-12 2022-10-12 1 University o f Alcohol Frequency 00:00:00 00:00:00 [facility] [place] [facility] edical Branch History SDOH Social 2022-10-12 2022-10-12 5 Unive rsity of Connections Phone 00:00:00 00:00:00 [facility] edical Branch History SDOH Social 2022-10-12 2022-10-12 [...] 1 Univers ity of Worry 00:00:00 00:00:00 [place] [facility] History SDOH Food 2022-10-12 2022-10-12 1 Univers ity of Scarcity 00:00:00 00:00:00 [place] [facility] History SDOH 2022-10-12 2022-10-12 2 University o f Transport Med 00:00:00 00:00:00 [place] Medic al Branch History SDOH 2022-10-12 2022-10-12 2 University o f Transport Non-Med 00:00:00 00:00:00 [place] M edical Branch History SDOH 2022-10-12 2022-10-12 2 University o f Housing Unable to 00:00:00 00:00:00 [place] M edical Pay Branch History SDNV 2022-10-12 2022-10-12 1 University o f Housing Places 00:00:00 00:00:00 [place] Medi yahaira Lived Branch History SDNV 2022-10-12 2022-10-12 2 University o f Housing [...] sure University of SARS-CoV-2 (event) 00:00:00 13:56:00 [facility] Sex [birth year] At [birth year] Universit y of 00:00:00 00:00:00 [facility] Smoking Status Start Date Stop Date Source Social History 2021-12-04 02:37:37 2021-12-04 02:37:37 [facility] Medications Ordered Filled Start Stop Current Ordering Indication Dosage Frequency Signature Comments Components Source Medication Medication Date Date Medication? Clinician (SIG) Name Name aspirin 81 Yes [id number] 81mg Take 1 Univers mg EC 5-19 tablet by ity of tablet 00:00: mouth in [place] 00 the Medical morning. Branch aspirin 81 Yes [id number] 81mg Take 1 Univers mg EC 5-19 tablet by ity of tablet 00:00: mouth in [place] 00 the Medical morning. Branch aspirin 81 0 Yes [id number] 81mg Take 1 Univers mg EC 5-19 tablet by ity of tablet 00:00: mouth in [place] 00 the Medical morning. Branch citalopram Yes 20mg Take 1 Unive rs 20 mg 5-18 tablet by ity of tablet 14:40: mouth in [place] [address] the Medical morning. Branch atorvastati Yes 40mg Take 40 mg Univers n (LIPITOR) 5-18 by mouth ity of 40 mg 14:40: at [place] [address] bedtime. Medical Branch MULTIVITAMI Yes 1{tbl} Take 1 Tab Univers NS WITH 5-18 by mouth ity of EXTRA C 14:40: daily. [place] [address] Medical Branch citalopram Yes 20mg Take 1 Unive rs 20 mg 5-18 tablet by ity of tablet 14:40: mouth in [place] [address] the Medical morning. Branch atorvastati Yes 40mg Take 40 mg Univers n (LIPITOR) 5-18 by mouth ity of 40 mg 14:40: at [place] [address] bedtime. Medical Branch MULTIVITAMI Yes 1{tbl} Take 1 Tab Univers NS WITH 5-18 by mouth ity of EXTRA C 14:40: daily. [place] [address] Medical Branch citalopram Yes 20mg Take 1 [...] ity of M.REC.ANLOG 12:58: 00:00 under the [place] (LANTUS 33 :00 skin every Medica l SOLOSTAR morning. Branch AL) carvediloL Yes [id number] 6.25mg Take 1 Univers 6.25 mg 5-18 tablet by ity of tablet 00:00: mouth in [place] 00 the Medical morning Branch and 1 tablet in the evening. Take with meals. pantoprazol Yes [id number] 40mg Take 1 Univers e 40 mg EC 5-18 tablet by ity of tablet 00:00: mouth in [place] 00 the Medical morning. Branch carvediloL Yes [id number] 6.25mg Take 1 Univers 6.25 mg 5-18 tablet by ity of tablet 00:00: mouth in [place] the morning Branch and 1 tablet in the evening. Take with meals. pantoprazol Yes [id number] 40mg Take 1 Univers e 40 mg EC 5-18 tablet by ity of tablet 00:00: mouth in [place] the morning. Branch carvediloL Yes [id number] 6.25mg Take 1 Univers 6.25 mg 5-18 tablet by ity of tablet 00:00: mouth in [place] the morning Branch and 1 tablet in the evening. Take with meals. pantoprazol Yes [id number] 40mg Take 1 Univers e 40 mg EC 5-18 tablet by ity of tablet 00:00: mouth in [place] the morning. Branch amoxicillin 2022- Yes [id number] 500mg Take 1 Univers -pot 5-18 05-26 tablet by ity of clavulanate 00:00: 04:59 [place] 500 mg 00 :00 every 24 Medical (AUGMENTIN) (twenty-fo Br anch 500-125 mg ur) hours tablet for 7 days. amoxicillin 2022- Yes [id number] 500mg Take 1 Univers -pot 5-18 05-26 tablet by ity of clavulanate 00:00: 04:59 [place] 500 mg 00 :00 every 24 Medical (AUGMENTIN) (twenty-fo Br anch 500-125 mg ur) hours tablet for 7 days. FENTanyl PF 0 Yes 25ug 25 mcg, Uni vers (SUBLIMAZE 5-17 Slow IV ity of (PF)) 11:05: Push, [place] injection 22 Q6HPRN, Medical 25 mcg Starting Branch on Wed10/14/22 at 0605, Until Discontinu ed, Routine, Pain (scale 4-6) FENTanyl PF 2022- No 12.5ug 12.5 mcg, Univers (SUBLIMAZE 5-17 05-17 Slow IV ity o f (PF)) 08:07: 11:05 Push, [place] injection 00 :38 Q6HPRN, Medical 12.5 mcg [...] Medic al VIAL-MATE dose, On Branch IV [facility] piggyback 10/12/22 at 1600, Administer over 90 Minutes, 250 mL
Reas on for Anti-Infec tive: Documented Infection< br>Documen swathi Infection Site: Blood<br&g t;Duration of Therapy: 7 days methocarbam 2022-0 Yes 750mg 750 mg, Un arnie oL 5-15 Oral, ity of (ROBAXIN) 13:06: TIDPRN, [place] tablet 750 58 Starting Medic al mg on [facility] 10/12/22 at 0806, Until Discontinu ed, Routine, Muscle Spasms atorvastati 0 Yes 40mg 40 mg, Univ ers n (LIPITOR) 5-15 Oral, QHS, it y of tablet 40 02:00: First dose [place] mg 00 on [facility] 10/11/22 at Branch 2100, Until Discontinu ed, Routine docusate 0 Yes 100mg 100 mg, Unive rs (COLACE) 5-15 Oral, BID, ity o f capsule 100 01:30: First dose [place] mg 00 on [facility] 10/11/22 at Branch 2030, Until Discontinu ed, Routine aspirin EC 0 Yes 81mg 81 mg, Unive rs tablet 81 5-14 Oral, ity of mg 14:00: DAILY, [place] 00 First dose Medical on [facility] 10/11/22 at 0900, Until Discontinu ed, Routine pantoprazol 0 Yes 40mg 40 mg, Univ ers e 5-14 Oral, ity of (PROTONIX) 14:00: DAILY, [place] EC tablet 00 First dose Medi yahaira 40 mg on [facility] 10/11/22 at 0900, Until Discontinu ed, Routine citalopram 0 Yes 20mg 20 mg, Unive rs (CELEXA) 5-14 Oral, ity of tablet 20 14:00: DAILY, [place] mg 00 First dose Medical on [facility] 10/11/22 at 0900, Until Discontinu ed, Routine [...] (Same as: l oral 14:00: Adalat CC, [place] tablet, 00 Procardia extended XL) Give release on empty stomach. Take 1 hour before or 2 hours after meal; "Avoid grapefruit and grapefruit juice". Do not crush Epogen No Notes: [facility] (ESRD) 7-20 Same as: l 14:00: Retacrit) [place] 00 epoetin shannon-epbx 83072 unit/1 ml VL. For dialysis use only. WASTE: F/P - Red; E Red MEDICATION WASTE Product Size: 05408 unit Product Wasted: ___ unit aspirin No Notes: Do Memor ia 7-20 not crush l 14:00: or chew. [place] 00 (Same As: Ecotrin) Procardia No Notes: Memori a XL 30 mg 7-20 (Same as: l oral 14:00: Adalat CC, [place] tablet, 00 Procardia extended XL) Give release on empty stomach. Take 1 hour before or 2 hours after meal; "Avoid grapefruit and grapefruit juice". Do not crush Epogen No Notes: [facility]oria (ESRD) 7-20 Same as: l 14:00: Retacrit) [place] 00 epoetin shannon-epbx 13937 unit/1 ml VL. For dialysis use only. WASTE: F/P - Red; E Red MEDICATION WASTE Product Size: 45576 unit Product Wasted: ___ unit aspirin No Notes: Do Memor ia 7-20 not crush l 14:00: or chew. [place] 00 (Same As: Ecotrin) Procardia No Notes: Memori a XL 30 mg 7-20 (Same as: l oral 14:00: Adalat CC, [place] tablet, 00 Procardia extended XL) Give release on empty stomach. Take 1 hour before or 2 hours after meal; "Avoid grapefruit and grapefruit juice". Do not crush Epogen No Notes: Memoria (ESRD) 7-20 Same as: l 14:00: Retacrit) [place] 00 epoetin shannon-epbx 53488 unit/1 ml VL. For dialysis use only. WASTE: F/P - Red; E Red MEDICATION WASTE Product Size: 95136 unit Product Wasted: ___ unit aspirin No Notes: Do Memor ia 7-20 not crush l 14:00: or chew. [place] 00 (Same As: Ecotrin) Procardia No Notes: Memori a XL 30 mg 7-20 (Same as: l oral 14:00: Adalat CC, [place] tablet, 00 Procardia extended XL) Give release on empty stomach. Take 1 hour before or 2 hours after meal; "Avoid grapefruit and grapefruit juice". Do not crush Epogen No Notes: [facility] (ESRD) 7-20 Same as: l 14:00: Retacrit) [place] 00 epoetin shannon-epbx 64624 unit/1 ml VL. For dialysis use only. WASTE: F/P - Red; E Red MEDICATION WASTE Product Size: 19661 unit Product Wasted: ___ unit aspirin No Notes: Do Memor ia 7-20 not crush l 14:00: or chew. [place] 00 (Same As: Ecotrin) Procardia No Notes: Memori a XL 30 mg 7-20 (Same as: l oral 14:00: Adalat CC, [place] tablet, 00 Procardia extended XL) Give release on empty stomach. Take 1 hour before or 2 hours after meal; "Avoid grapefruit and grapefruit juice". Do not crush Epogen No Notes: [facility]oria (ESRD) 7-20 Same as: l 14:00: Retacrit) [place] 00 epoetin shannon-epbx 58253 unit/1 ml VL. For dialysis use only. WASTE: F/P - Red; E Red MEDICATION WASTE Product Size: 44473 unit Product Wasted: ___ unit Lipitor No Notes: [facility] 7-20 (Same as: l 02:00: Lipitor) [place] 00 Lipitor No Notes: [facility]oria 7-20 (Same as: l 02:00: Lipitor) [place] 00 Lipitor No Notes: [facility]oria 7-20 (Same as: l 02:00: Lipitor) [place] 00 Lipitor No Notes: [facility] 7-20 (Same as: l 02:00: Lipitor) [place] 00 Lipitor No Notes: [facility]oria 7-20 (Same as: l 02:00: Lipitor) [place] 00 cefdinir No Notes: [facility] 300 mg oral 7-19 (Same As: l capsule 22:00: Omnicef) Thomas n 00 cefdinir No Notes: [facility] 300 mg oral 7-19 (Same As: l capsule 22:00: Omnicef) Thomas n 00 cefdinir No Notes: [facility] 300 mg oral 7-19 (Same As: l capsule 22:00: Omnicef) Thomas n 00 cefdinir 2022-0 No Notes: [facility] 300 mg oral 7-19 (Same As: l capsule 22:00: Omnicef) Thomas n 00 cefdinir 2021-0 No Notes: [facility] 300 mg oral 7-19 (Same As: l capsule 22:00: Omnicef) Thomas n dexamethaso 2-0 Yes 6 mg = 1 Me moria ne 6 mg 7-19 tab, PO, l oral tablet 21:19: Daily, X 3 [place] 00 day, # 3 tab, 0 Refill(s), Pharmacy: [facility] #[id number], 177.8, cm, 12/14/21 22:03:00 CDT, Height, 95.2, kg, 12/14/21 22:03:00 CDT, Weight dexamethaso 2-0 Yes 6 mg = 1 Me moria ne 6 mg 7-19 tab, PO, l oral tablet 21:19: Daily, X 3 [place] 00 day, # 3 tab, 0 Refill(s), Pharmacy: [id number] #[id number], 177.8, cm, 12/14/21 22:03:00 CDT, Height, 95.2, kg, 12/14/21 22:03:00 CDT, Weight dexamethaso 2-0 Yes 6 mg = 1 Me moria ne 6 mg 7-19 tab, PO, l oral tablet 21:19: Daily, X 3 [place] 00 day, # 3 tab, 0 Refill(s), Pharmacy: [facility] #[id number], 177.8, cm, 12/14/21 22:03:00 CDT, Height, 95.2, kg, 12/14/21 22:03:00 CDT, Weight dexamethaso 2-0 Yes 6 mg = 1 Me moria ne 6 mg 7-19 tab, PO, l oral tablet 21:19: Daily, X 3 [place] 00 day, # 3 tab, 0 Refill(s), Pharmacy: [facility] #[id number], 177.8, cm, 12/14/21 22:03:00 CDT, Height, 95.2, kg, 12/14/21 22:03:00 CDT, Weight dexamethaso 2022-0 Yes 6 mg = 1 Me moria ne 6 mg 7-19 tab, PO, l oral tablet 21:19: Daily, X 3 [place] day, # 3 tab, 0 Refill(s), Pharmacy: [id number], 177.8, cm, 12/14/21 22:03:00 CDT, Height, [...] [place] 00 cap, 1 Refill(s) pregabalin Yes 50 mg = 1 Me moria 50 mg oral 7-19 cap, PO, l capsule 20:30: BID, # 60 [place] 00 cap, 1 Refill(s) melatonin Yes 3 mg = 1 Me moria mg oral 7-19 tab, PO, l tablet 20:29: Bedtime, [place] 00 PRN for insomnia, # 14 tab, 0 Refill(s) melatonin Yes 3 mg = 1 Me moria mg oral 7-19 tab, PO, l tablet 20:29: Bedtime, [place] 00 PRN for insomnia, # 14 tab, 0 Refill(s) melatonin Yes 3 mg = 1 Me moria mg oral 7-19 tab, PO, l tablet 20:29: Bedtime, [place] 00 PRN for insomnia, # 14 tab, 0 Refill(s) melatonin Yes 3 mg = 1 Me moria mg oral 7-19 tab, PO, l tablet 20:29: Bedtime, [place] 00 PRN for insomnia, # 14 tab, 0 Refill(s) melatonin Yes 3 mg = 1 Me moria mg oral 7-19 tab, PO, l tablet 20:29: Bedtime, [place] 00 PRN for insomnia, # 14 tab, 0 Refill(s) Colace 100 Yes 100 mg = 1 M emoria mg oral 7-19 cap, PO, l capsule 20:28: BID, PRN Thomas n 00 Constipati on, # 20 cap, 0 Refill(s) Colace 100 Yes 100 mg = 1 M emoria mg oral 7-19 cap, PO, l capsule 20:28: BID, PRN Thomas n 00 Constipati on, # 20 cap, 0 Refill(s) Colace 100 0 Yes 100 mg = 1 M emoria mg oral 7-19 cap, PO, l capsule 20:28: BID, PRN Thomas n 00 Constipati on, # 20 cap, 0 Refill(s) Colace 100 Yes 100 mg = 1 M emoria mg oral 7-19 cap, PO, l capsule 20:28: BID, PRN Thomas n 00 Constipati on, # 20 cap, 0 Refill(s) Colace 100 2021-0 Yes 100 mg = 1 M emoria mg oral 7-19 cap, PO, l capsule 20:28: BID, PRN Thomas n 00 Constipati on, # 20 cap, 0 Refill(s) carvedilol 2021-0 Yes 12.5 mg = Me moria 12.5 mg 7-19 1 tab, PO, l oral tablet 20:27: Q12H, # 60 [place] 00 tab, 0 Refill(s) bisacodyl 5 2021-0 Yes 10 mg = 2 M emoria mg oral 7-19 tab, PO, l enteric 20:27: Daily, PRN Herm silas coated 00 Constipati tablet on, # 20 tab, 0 Refill(s) carvedilol 2021-0 Yes 12.5 mg = Me moria 12.5 mg 7-19 1 tab, PO, l oral tablet 20:27: Q12H, # 60 [place] 00 tab, 0 Refill(s) bisacodyl 5 2021-0 Yes 10 mg = 2 M emoria mg oral 7-19 tab, PO, l enteric 20:27: Daily, PRN Herm silas coated 00 Constipati tablet on, # 20 tab, 0 Refill(s) carvedilol 2021-0 Yes 12.5 mg = Me moria 12.5 mg 7-19 1 tab, PO, l oral tablet 20:27: Q12H, # 60 [place] 00 tab, 0 Refill(s) bisacodyl 5 2021-0 Yes 10 mg = 2 M emoria mg oral 7-19 tab, PO, l enteric 20:27: Daily, PRN Herm silas coated 00 Constipati tablet on, # 20 tab, 0 Refill(s) carvedilol 2021-0 Yes 12.5 mg = Me moria 12.5 mg 7-19 1 tab, PO, l oral tablet 20:27: Q12H, # 60 [place] 00 tab, 0 Refill(s) bisacodyl 5 2021-0 Yes 10 mg = 2 M emoria mg oral 7-19 tab, PO, l enteric 20:27: Daily, PRN Herm silas coated 00 Constipati tablet on, # 20 tab, 0 Refill(s) bisacodyl 5 Yes 10 mg = 2 M emoria mg oral 7-19 tab, PO, l enteric 20:27: Daily, PRN Herm silas coated 00 Constipati tablet on, # 20 tab, 0 Refill(s) carvedilol Yes 12.5 mg = Me moria 12.5 mg 7- 1 tab, PO, l oral tablet 20:27: Q12H, # 60 [place] 00 tab, 0 Refill(s) aspirin 81 Yes 81 mg = 1 Me moria mg tablet, 7-19 tab, PO, l enteric 20:26: Daily, # Thomas n coated 00 90 tab, 3 Refill(s) aspirin 81 0 Yes 81 mg = 1 Me moria mg tablet, 7-19 tab, PO, l enteric 20:26: Daily, # Thomas n coated 00 90 tab, 3 Refill(s) aspirin 81 Yes 81 mg = [...] As: Zithromax) sevelamer No Notes: Memori a 7- Same as: l 13:00: Renvela [place] sevelamer No Notes: Memori a 7- Same as: l 13:00: Renvela Oboker sevelamer No Notes: Memori a 7- Same as: l 13:00: Renvela [place] sevelamer No Notes: Memori a 7- Same as: l 13:00: Renvela [place] sevelamer No Notes: Memori a 7- Same as: l 13:00: Renvela [place] albumin Yes Notes: Lot Heath broussard human 25% 12-16 #: l intravenous 02:33: [place] solution ___ Mfg: (Same as: Plasbumin- 25) "blood product derivative " WASTE: F/P - Red; E -Red MEDICATION WASTE Product Size: 25 gm Product Wasted: ___ gm albumin Yes Notes: Lot Heath bobo human 25% 12-16 #: l intravenous 02:33: [place] solution ___ Mfg: (Same as: Plasbumin- 25) "blood product derivative " WASTE: F/P - Red; E -Red MEDICATION WASTE Product Size: 25 gm Product Wasted: ___ gm albumin Yes Notes: Lot Heath mercado 25% 7 #: l intravenous 02:33: [place] solution 00 ___ Mfg: (Same as: Plasbumin- 25) "blood product derivative " WASTE: F/P - Red; E -Red MEDICATION WASTE Product Size: 25 gm Product Wasted: ___ gm albumin Yes Notes: Lot Heath mercado 25% 7 #: l intravenous 02:33: [place] solution 00 ___ Mfg: (Same as: Plasbumin- 25) "blood product derivative " WASTE: F/P - Red; E -Red MEDICATION WASTE Product Size: 25 gm Product Wasted: ___ gm albumin Yes Notes: Lot Heath mercado 25% 12-16 #: l intravenous 02:33: [place] solution 00 ___ Mfg: (Same as: Plasbumin- [...] pratropium 7-18 Same as: l 13:00: Combivent [place] Respimat WASTE: Aerosol - Return to Pharmacy albuterol-i No Notes: Heath bobo pratropium 7-18 Same as: l 13:00: Combivent [place] Respimat WASTE: Aerosol - Return to Pharmacy albuterol-i No Notes: Heath bobo pratropium 7-18 Same as: l 13:00: Combivent [place] Respimat WASTE: Aerosol - Return to Pharmacy albuterol-i 0 No Notes: Heath bobo pratropium 7-18 Same as: l 13:00: Combivent [place] Respimat WASTE: Aerosol - Return to Pharmacy albuterol-i No Notes: Heath bobo pratropium 7-18 Same as: l 13:00: Combivent [place] Respimat WASTE: Aerosol - Return to Pharmacy heparin 0 No 5,000 [facility] 7-18 unit, l 05:00: Route: [place] 00 SUB-Q, Q8H, Dosing Weight 95.455, kg, Start date: 12/15/21 0:00:00 CDT, Stop date: 01/13/22 16:00:00 CDT heparin 2022-0 No 5,000 [facility] 7-18 unit, l 05:00: Route: [place] 00 SUB-Q, Q8H, Dosing Weight 95.455, kg, Start date: 12/15/21 0:00:00 CDT, Stop date: 01/13/22 16:00:00 CDT heparin 2022-0 No 5,000 [facility] 7-18 unit, l 05:00: Route: [place] 00 SUB-Q, Q8H, Dosing Weight 95.455, kg, Start date: 12/15/21 0:00:00 CDT, Stop date: 01/13/22 16:00:00 CDT heparin 2021-0 No 5,000 [facility] 7-18 unit, l 05:00: Route: [place] 00 SUB-Q, Q8H, Dosing Weight 95.455, kg, Start date: 12/15/21 0:00:00 CDT, Stop date: 01/13/22 16:00:00 CDT heparin 2022-0 No 5,000 [facility] 7-18 unit, l 05:00: Route: [place] 00 SUB-Q, Q8H, Dosing Weight 95.455, kg, Start date: 12/15/21 0:00:00 CDT, Stop date: 01/13/22 16:00:00 CDT heparin 2022-0 No Notes: [facility] 7-18 porcine l 02:00: heparin [place] 00 heparin 202-0 No Notes: [facility] 7-18 porcine l 02:00: heparin [place] 00 heparin 2021-0 No Notes: [facility] 7-18 porcine l 02:00: heparin [place] 00 heparin 2021-0 No Notes: [facility] 7-18 porcine l 02:00: heparin [place] 00 heparin 202-0 No Notes: [facility] 7-18 porcine l 02:00: heparin [place] 00 albuterol-i 2021-0 No Notes: Heath bobo pratropium 7-18 (Same as: l 2.5-0.5 mg 01:00: Duoneb) Herm silas inhalation 00 solution albuterol-i 2021-0 No Notes: Heath bobo pratropium 7-18 (Same [...] IV 250 00 IV) mL cefepime + 0 No Notes: Memor ia Sodium 7-18 (Same [...] 1000 mg Product Wasted: ___ mg azithromyci 0 No Notes: Heath bobo n + Sodium 7-18 (Same As: l Chloride 00:00: Zithromax Herm silas 0.9% IV 250 00 IV) mL cefepime + 2021-0 No Notes: [facility] ia Sodium 7-18 (Same As: l Chloride 00:00: Maxipime) Herm silas 0.9% IV 50 00 mL MEDICATION WASTE Product Size: 1000 mg Product Wasted: ___ mg Dextrose 2021- No 125 mL, Memori a 10% in [...] Rate: 999 l Water IV 23:57: ml/hr, [place] 00 Infuse over: 0.1 hr, Route: IV, Total Volume: 125, Start date: 12/14/21 18:57:00 CDT, Duration: 30 day, Stop date: 01/13/22 18:56:00 CDT, PRN Blood Glucose Results, 0 Dextrose 2022-0 No 250 mL, Memori a 10% in 12-14 Rate: 999 l Water IV 23:53: ml/hr, [place] 00 Infuse over: 0.3 hr, Route: IV, [...] Rate: 999 l Water IV 23:53: ml/hr, [place] 00 Infuse over: 0.3 hr, Route: IV, [...] Pharmacy 12-14 Vancomycin l Dosing 23:36: [email or web address] Consult 47 Dosing Protocol PHARMAC Y USE ONLY Note: This is not a medication order. This is a consultati on order. Vancomycin No Notes: [facility]acy 12-14 Vancomycin l Dosing 23:36: Pharmacy [email or web address] Consult 47 Dosing Protocol PHARMAC Y USE ONLY Note: This is not a medication order. This is a consultati on order. Vancomycin No Notes: [facility]acy 12-14 Vancomycin l Dosing 23:36: Pharmacy [email or web address] Consult 47 Dosing Protocol PHARMAC Y USE ONLY Note: This is not a medication order. This is a consultati on order. Vancomycin No Notes: [facility]acy 12-14 Vancomycin l Dosing 23:36: Pharmacy [email or web address] Consult 47 Dosing Protocol PHARMAC Y USE ONLY Note: This is not a medication order. This is a consultati on order. Vancomycin No Notes: [facility]acy 12-14 Vancomycin l Dosing 23:36: [email or web address] [email or web address] Consult 47 Dosing Protocol PHARMAC Y USE ONLY Note: This is not a medication order. This is a consultati on order. simethicone No Notes: Heath bobo 12-14 (Same as: l 23:30: Mylicon) [place] 00 ondansetron No Notes: Heath bobo 12-14 (Same as: l 23:30: Zofran) [place] 00 MEDICATION WASTE Product Size: 4 mg [...] 23:30: Duoneb) solution Chlorasepti No Notes: Heath bboo c 1.4% 7-17 Chlorasept l spray 23:30: ic [place] (Same as: Chlorasept ic, Sore Throat [place]) WASTE: F/P - Black; E - Municipal [...] 7-17 (Same as: l tablet 23:30: Pepcid) [place] 5/325 No Notes: Heath bobo oral tablet 7-17 (Same as: l 23:30: [place] 325/5) Do not exceed 4gm/day of acetaminop [...] 1.4% 7-17 Chlorasept l spray 23:30: ic [place] (Same as: Chlorasept ic, Sore Throat [place]) WASTE: F/P - Black; E - Municipal [...] 7-17 (Same as: l tablet 23:30: Pepcid) [place] 5/325 No Notes: Heath bobo oral tablet 7-17 (Same as: l 23:30: [place] 325/5) Do not exceed 4gm/day of acetaminop [...] MINE 7-17 tab, l 23:30: Route: PO, [place] 00 Drug form: TAB, Q6H, Dosing Weight 95.455, kg, PRN Itching, Start date: 12/14/21 18:30:00 CDT, Duration: 30 day, Stop date: 01/13/22 18:29:00 CDT, 0 acetaminoph No Notes: Do M emoria en 7-17 not exceed l 23:30: 4 gm/day. (Same as: Tylenol) albuterol-i No Notes: Heath bobo pratropium 7-17 (Same as: l 2.5-0.5 mg 23:30: Duoneb) Herm solution Chlorasepti No Notes: Heath bobo c 1.4% 7-17 Chlorasept l spray 23:30: ic [place] (Same as: Chlorasept ic, Sore Throat [place]) WASTE: F/P - Black; E - Municipal [...] MINE 7-17 tab, l 23:30: Route: PO, [place] 00 Drug form: TAB, Q6H, Dosing Weight 95.455, kg, PRN Itching, Start date: 12/14/21 18:30:00 CDT, Duration: 30 day, Stop date: 01/13/22 18:29:00 CDT, 0 acetaminoph No Notes: Do M emoria en 7-17 not exceed l 23:30: 4 gm/day. [place] 00 (Same as: Tylenol) Pepcid 20 No Notes: Memori a mg oral 7-17 (Same as: l tablet 23:30: Pepcid) albuterol-i No Notes: Heath bobo pratropium 7-17 (Same as: l 2.5-0.5 mg 23:30: Duoneb) silas inhalation solution Chlorasepti No Notes: Heath bobo c 1.4% 7-17 Chlorasept l spray 23:30: ic [place] (Same as: Chlorasept ic, Sore Throat [place]) WASTE: F/P - Black; E - Municipal [...] 7-17 (Same as: l tablet 23:30: Pepcid) [place] 5/325 No Notes: Heath bobo oral tablet 7-17 (Same as: l 23:30: [place] 00 325/5) Do not exceed 4gm/day of acetaminop hen. morphine No 1 mg, 0.5 Heath bobo Sulfate 7-17 mL, Route: l 23:30: IVP, Drug form: SOLN, Q4H, Dosing Weight 95.455, kg, PRN Pain Score 7-10, Start date: 12/14/21 18:30:00 CDT, Duration: 30 day, Stop date: 01/13/22 18:29:00 CDT, 0 [place] 5/325 No Notes: Heath bobo oral tablet 7-17 (Same as: l 23:30: [place] 325/5) Do not exceed 4gm/day of acetaminop [...] 1.4% 7-17 Chlorasept l spray 23:30: ic [place] (Same as: Chlorasept ic, Sore Throat [place]) WASTE: F/P - Black; E - Municipal [...] 7-17 (Same as: l tablet 23:30: Pepcid) [place] 5/325 No Notes: Heath bobo oral tablet 7-17 (Same as: l 23:30: [place] 325/5) Do not exceed 4gm/day of acetaminop [...] Syringe 7-17 Route: l (D50W) 23:29: IVP, [place] 00 Dosing Weight 95.455, kg, PRN, PRN Blood Glucose Results, Start date: 12/14/21 18:29:00 CDT, Duration: 30 day, Stop date: 01/13/22 18:28:00 CDT glucagon 2022-0 No 1 mg, [facility] 7-17 Route: IM, l 23:29: Drug form: [place] PDR/INJ, PRN, Dosing Weight 95.455, kg, PRN Blood Glucose Results, Start date: 12/14/21 18:29:00 CDT, Duration: 30 day, Stop date: 01/13/22 18:28:00 CDT, 0 insulin 2022-0 No Notes: [facility] lispro 7-17 (Same as: l 23:29: Humalog) [place] 00 Roll in palms of hands gently; [...] 7-17 Route: IM, l 23:29: Drug form: [place] 00 PDR/INJ, PRN, Dosing Weight 95.455, kg, [...] Syringe 7-17 Route: l (D50W) 23:29: IVP, [place] 00 Dosing Weight 95.455, kg, PRN, PRN [...] lispro 7-17 (Same as: l 23:29: Humalog) [place] 00 Roll in palms of hands gently; [...] day, Stop date: 01/13/22 18:28:00 CDT glucagon No 1 mg, [facility] 7-17 Route: IM, l 23:29: Drug form: 00 PDR/INJ, PRN, Dosing Weight 95.455, kg, [...] [facility] Perles 7-17 (Same As: l 23:28: Teson Perles) "Do Not Crush" zinc No Notes: [...] [facility] sulfate 7-17 (Zinc l 23:28: sulfate [place] 00 capsule) - 220 mg Zinc sulfate = 50 mg elemental zinc Same as Zinc Sulfate ascorbic No Notes: [facility] acid 7-17 (Same as: l 23:28: Vitamin C) [place] No Notes: [facility] Perles 7-17 (Same As: l 23:28: [place] Perles) "Do Not Crush" zinc No Notes: [facility] sulfate 7-17 (Zinc l 23:28: sulfate [place] 00 capsule) - 220 mg Zinc sulfate [...] [facility] 7-17 Take with l 22:40: food. [place] 00 Rocephin + No Notes: [facility] ia [...] [facility] 7-17 Take with l 22:40: food. [place] 00 Rocephin + No Notes: [facility] ia [...] [facility] 7-17 Take with l 22:40: food. [place] 00 Rocephin + No Notes: [facility] ia [...] 0.9% IV 250 00 IV) mL Dextrose 2022-0 No 250 mL, [facility] a 10% in 12-14 Rate: 999 l Water IV 21:08: ml/hr, [place] 00 Infuse over: 0.3 hr, Route: IV, Total Volume: 250, Start date: 12/14/21 16:08:00 CDT, Stop date: 12/14/21 16:08:00 CDT, 0 Dextrose 2022-0 No 250 mL, [facility] a 10% in 12-14 Rate: 999 l Water IV 21:08: ml/hr, [place] 00 Infuse over: 0.3 hr, Route: IV, Total Volume: 250, Start date: 12/14/21 16:08:00 CDT, Stop date: 12/14/21 16:08:00 CDT, 0 Dextrose 2022-0 No 250 mL, [facility] a 10% in 12-14 Rate: 999 l Water IV 21:08: ml/hr, [place] 00 Infuse over: 0.3 hr, Route: IV, Total Volume: 250, Start date: 12/14/21 16:08:00 CDT, Stop date: 12/14/21 16:08:00 CDT, 0 Dextrose 2022-0 No 250 mL, [facility] a 10% in 12-14 Rate: 999 l Water IV 21:08: ml/hr, [place] 00 Infuse over: 0.3 hr, Route: IV, Total Volume: 250, Start date: 12/14/21 16:08:00 CDT, Stop date: 12/14/21 16:08:00 CDT, 0 Dextrose 2022-0 No 250 mL, Memori a 10% in 12-14 Rate: 999 l Water IV 21:08: ml/hr, [place] 00 Infuse over: 0.3 hr, Route: IV, Total Volume: 250, Start date: 12/14/21 16:08:00 CDT, Stop date: 12/14/21 16:08:00 CDT, 0 d50 syringe 2-0 No 25 mL, Heath bobo 12-14 Route: l 20:41: IVP, [place] 00 Dosing [...] Heath bobo 7-17 Route: l 20:41: IVP, [place] 00 Dosing Weight 95.455, kg, ONCE, STAT, Start date: 12/14/21 15:41:00 CDT, Stop date: 12/14/21 15:41:00 CDT, 25 ml = 12.5 gm d50 syringe 2022-0 No 25 mL, Heath bobo 7-17 Route: l 20:41: IVP, [place] 00 Dosing Weight 95.455, kg, ONCE, STAT, Start date: 12/14/21 15:41:00 CDT, Stop date: 12/14/21 15:41:00 CDT, 25 ml = 12.5 gm d50 syringe 2-0 No 25 mL, Heath bobo 7-17 Route: l 20:41: IVP, [place] 00 Dosing Weight 95.455, kg, ONCE, STAT, Start date: 12/14/21 15:41:00 CDT, Stop date: 12/14/21 15:41:00 CDT, 25 ml = 12.5 gm Sodium 2022-0 No 250 mL, [facility] Chloride 7-07 Rate: To l 0.9% 01:29: prime line [place] (titrate) 00 and flush 250 mL remaining blood products., Dosing Weight 88.636, kg, Route: IV, Total Volume: 250, Start Date: 12/03/21 20:29:00 CDT, Duration: 1 day, Stop date: 12/04/21 20:28:00 CDT, Replace Every: 24 hr, 0 Sodium 2022-0 No 250 mL, [facility] Chloride 7-07 Rate: To l 0.9% 01:29: prime line [place] (titrate) 00 and flush 250 mL remaining [...] Rate: To l 0.9% 01:29: prime line [place] (titrate) 00 and flush 250 mL remaining [...] tab, PO, l tablet 19:37: Daily, # [place] 00 30 tab, 0 Refill(s), other Plavix 75 2022-0 Yes 75 mg = 1 Mem oria mg oral 6-28 tab, PO, l tablet 19:37: Daily, # [place] 00 30 tab, 0 Refill(s), other Plavix 75 2022-0 Yes 75 mg = 1 [facility] mg oral 6-28 tab, PO, l tablet 19:37: Daily, # [place] 00 30 tab, 0 Refill(s), other Plavix 75 0 Yes 75 mg = 1 [facility] mg oral 6-28 tab, PO, l tablet 19:37: Daily, # [place] 00 30 tab, 0 Refill(s), other Plavix 75 Yes 75 mg = 1 [facility] mg oral 6-28 tab, PO, l tablet 19:37: Daily, # [place] 00 30 tab, 0 Refill(s), other Protonix No Notes: For Mem oria 6-28 IV push l 14:00: reconstitu [place] 00 te with 10 ml 0.9% sodium chloride and push over 2 minutes. (Same as: Protonix) atorvastati No Notes: Heath bobo n 6-28 (Same as: l 14:00: Lipitor) citalopram No Notes: [facility] 6-28 (Same As: l 14:00: CeleXA) Protonix No Notes: For Mem oria 6-28 IV push l 14:00: reconstitu [place] 00 te with 10 ml 0.9% sodium chloride and push over 2 minutes. (Same as: Protonix) atorvastati No Notes: Heath bobo n 6-28 (Same as: l 14:00: Lipitor) citalopram No Notes: [facility] 6-28 (Same As: l 14:00: CeleXA) Protonix No Notes: For Mem oria 6-28 IV push l 14:00: reconstitu [place] 00 te with 10 ml 0.9% sodium chloride and push over 2 minutes. (Same as: Protonix) atorvastati No Notes: Heath bobo n 6-28 (Same as: l 14:00: Lipitor) [place] 00 citalopram No Notes: [facility] ia 6-28 (Same As: l 14:00: CeleXA) Protonix No Notes: For Mem oria 6-28 IV push l 14:00: reconstitu te with 10 ml 0.9% sodium chloride and push over 2 minutes. (Same as: Protonix) atorvastati No Notes: Heath bobo n - (Same as: l 14:00: Lipitor) citalopram No Notes: [facility] 11-25 (Same As: l 14:00: CeleXA) Protonix No Notes: For Mem oria 11-25 IV push l 14:00: reconstitu [place] 00 te with 10 ml 0.9% sodium chloride and push over 2 minutes. (Same as: Protonix) atorvastati No Notes: Heath bobo n - (Same as: l 14:00: Lipitor) citalopram No Notes: [facility] 11-25 (Same As: l 14:00: CeleXA) dexamethaso No Notes: Heath bobo ne 11-25 Concentrat l 06:42: ion: [place] 00 4mg/ml dexamethaso No Notes: Heath bobo ne 11-25 Concentrat l 06:42: ion: [place] 00 4mg/ml dexamethaso No Notes: Heath bobo ne 11-25 Concentrat l 06:42: ion: [place] 00 4mg/ml dexamethaso No Notes: Heath bobo ne 11-25 Concentrat l 06:42: ion: [place] 00 4mg/ml dexamethaso No Notes: Heath bobo ne 11-25 Concentrat l 06:42: ion: [place] 00 4mg/ml W No 125 mL, [facility] (bolus) IV 11-25 Rate: 999 l 06:31: ml/hr, [place] 00 Infuse over: 0.1 hr, Route: IVPB, Total Volume: 125, Start date: 11/25/21 1:31:00 CDT, Duration: 30 day, Stop date: 12/25/21 1:30:00 CDT, PRN Blood Glucose Results, 0 D1 No 125 mL, [facility] (bolus) IV 6-28 Rate: 999 l 06:31: ml/hr, [place] 00 Infuse over: 0.1 hr, Route: IVPB, Total Volume: 125, Start date: 11/25/21 1:31:00 CDT, Duration: 30 day, Stop date: 12/25/21 1:30:00 CDT, PRN Blood Glucose Results, 0 D10W 2021-0 No 125 mL, [facility] (bolus) IV 6-28 Rate: 999 l 06:31: ml/hr, [place] 00 Infuse over: 0.1 hr, Route: IVPB, Total Volume: 125, Start date: 11/25/21 1:31:00 CDT, Duration: 30 day, Stop date: 12/25/21 1:30:00 CDT, PRN Blood Glucose Results, 0 D10W 2021-0 No 125 mL, [facility] (bolus) IV 6- Rate: 999 l 06:31: ml/hr, [place] 00 Infuse over: 0.1 hr, Route: IVPB, Total Volume: 125, Start date: 11/25/21 1:31:00 CDT, Duration: 30 day, Stop date: 12/25/21 1:30:00 CDT, PRN Blood Glucose Results, 0 D10W 2021-0 No 125 mL, [facility] (bolus) IV 6- Rate: 999 l 06:31: ml/hr, [place] 00 Infuse over: 0.1 hr, Route: IVPB, Total Volume: 125, Start date: 11/25/21 1:31:00 CDT, Duration: 30 day, Stop date: 12/25/21 1:30:00 CDT, PRN Blood Glucose Results, 0 D10W 2021-0 No 250 mL, [facility] (bolus) IV 6-28 Rate: 999 l 06:23: ml/hr, [place] 00 Infuse over: 0.3 hr, Route: IVPB, Total Volume: 250, Start date: 11/25/21 1:23:00 CDT, Duration: 30 day, Stop date: 12/25/21 1:22:00 CDT, PRN Blood Glucose Results, 0 D10W 2021-0 No 250 mL, [facility] (bolus) IV 6-28 Rate: 999 l 06:23: ml/hr, Infuse over: [...] lispro 6-28 (Same as: l 05:55: Humalog) [place] 00 Roll in palms of hands gently; [...] 11-25 Route: IM, l 05:55: Drug form: [place] 00 PDR/INJ, PRN, Dosing Weight 94.545, kg, PRN Blood Glucose Results, Start date: 11/25/21 0:55:00 CDT, Duration: 30 day, Stop date: 12/25/21 0:54:00 CDT, 0 insulin 2021-0 No Notes: [facility] lispro -28 (Same as: l 05:55: Humalog) [place] 00 Roll in palms of hands gently; Do not shake vigorously . WASTE: F/P - Black; E - Municipal Trash Bin Stable for 28 days at room temperatur e. Expires in days from ____Date Dextrose 2021-0 No 25 mL, [facility] 50% Syringe 11-25 Route: l (D50W) 05:55: IVP, [place] 00 Dosing Weight 94.545, kg, PRN, PRN Blood Glucose Results, Start date: 11/25/21 0:55:00 CDT, Duration: 30 day, Stop date: 12/25/21 0:54:00 CDT glucagon 2-0 No 1 mg, [facility] 11-25 Route: IM, [...] Syringe 11-25 Route: l (D50W) 05:55: IVP, [place] 00 Dosing Weight 94.545, kg, PRN, PRN [...] lispro -28 (Same as: l 05:55: Humalog) [place] 00 Roll in palms of hands gently; [...] CDT, 0 insulin No Notes: [facility] lispro - (Same as: l 05:55: Humalog) Roll in palms of hands gently; Do not shake vigorously . WASTE: F/P - Black; E - Municipal Trash Bin Stable for 28 days at room temperatur e. Expires in days from ____Date Zofran No Notes: [facility] -28 (Same as: l 05:54: Zofran) MEDICATION WASTE Product Size: 4 mg Product Wasted: ___ mg Tylenol No Notes: Do Memor ia - not exceed l 05:54: 4 gm/day. (Same as: Tylenol) [place] No Notes: [facility]oria Perles - (Same As: l 05:54: [place] Perles) "Do Not Crush" simethicone No Notes: Heath bobo - (Same as: l 05:54: Mylicon) senna 8.6 No Notes: Memori a mg oral -28 (Same as: l tablet 05:54: Senokot) [place] 50 No Notes: Memori a mg oral 6-28 (Same as: l capsule 05:54: Colace) Zofran No Notes: [facility] 6-28 (Same as: l 05:54: Zofran) MEDICATION WASTE Product Size: 4 mg Product Wasted: ___ mg Tylenol No Notes: Do Memor ia 6-28 not exceed l 05:54: 4 gm/day. [place] (Same as: Tylenol) No Notes: Memoria Perles [...] [facility] 6-28 (Same as: l 05:54: Zofran) [place] MEDICATION WASTE Product Size: 4 mg Product Wasted: ___ mg Tylenol No Notes: Do Memor ia 6-28 not exceed l 05:54: 4 gm/day. [place] 00 (Same as: Tylenol) No Notes: Memoria [...] [facility] 6-28 (Same as: l 05:54: Zofran) [place] MEDICATION WASTE Product Size: 4 mg Product Wasted: ___ mg Tylenol No Notes: Do Memor ia 6-28 not exceed l 05:54: 4 gm/day. [place] 00 (Same as: Tylenol) [place] No Notes: [...] Perles 6-28 (Same As: l 05:54: [place] 00 Perles) "Do Not Crush" simethicone No Notes: Heath bobo 6-28 (Same as: l 05:54: Mylicon) senna 8.6 No Notes: Memori a mg oral 6-28 (Same as: l tablet 05:54: Senokot) Colace 50 No Notes: Memori a mg oral 6-28 (Same as: l capsule 05:54: Colace) citalopram Yes 0 [facility] 20 mg oral 6-28 Refill(s) l tablet 05:53: [place] 00 pantoprazol Yes 0 Memori a e 40 mg 6-28 Refill(s) l oral 05:53: [place] enteric 00 coated tablet clindamycin Yes 0 Memori a 300 mg oral 6-28 Refill(s) l capsule 05:53: [place] 00 clopidogrel 2021-0 No 0 Memori a 75 [...] Refill(s) l oral 05:53: coated tablet clindamycin 2021-0 Yes 0 Memori a 300 mg oral 6-28 Refill(s) l capsule 05:53: clopidogrel 2021-0 No 0 Memori a 75 mg oral 6-28 Refill(s) l tablet 05:53: atorvastati 2021-0 Yes 0 Memori a n 40 mg 6-28 Refill(s) l oral tablet 05:53: Basaglar 2021-0 Yes 0 [facility] KwikPen 100 6-28 Refill(s) l units/mL 05:53: ne s solution Dialyvite 2021-0 Yes 0 Memoria [...] mg 6-28 Refill(s) l oral 05:53: enteric coated tablet clindamycin 2021-0 Yes 0 Memori [...] mg oral 6-28 Refill(s) l tablet 05:53: [place] 00 pantoprazol Yes 0 Memori a e 40 mg 6-28 Refill(s) l oral 05:53: [place] enteric 00 coated tablet clindamycin Yes 0 Memori a 300 mg oral 6-28 Refill(s) l capsule 05:53: 00 clopidogrel No 0 Memori a 75 mg oral 6-28 Refill(s) l tablet 05:53: atorvastati Yes 0 Memori a n 40 mg 6-28 Refill(s) l oral tablet 05:53: [place] n Basaglar Yes 0 [facility] KwikPen 100 6-28 Refill(s) l units/mL 05:53: subcutaneou 00 s solution Dialyvite Yes 0 [facility] 800 Ultra D 6-28 Refill(s) l oral tablet 05:53: [place] n glipiZIDE Yes 0 [facility] 10 mg oral 6-28 Refill(s) l tablet 05:53: 00 cefTRIAXone No Notes: Heath bobo + [...] cefTRIAXone No Notes: Heath bobo + Sodium 11-25 (Same As: l Chloride 05:27: Rocephin). Her [...] oria 6-28 IV push l 03:37: reconstitu [place] 00 te with 10 ml 0.9% sodium [...] as: Protonix) Advair HFA Advair HFA Yes [place] 2 puffs [place] 1-15 [facility] 00:00: - [facility] 00 [facility] BD BD 2018-05 Yes [place] 1 needle [place] Ultra-Fine Ultra-Fine 0-09 [facility] with Sp jerome Christina Pen Christina Pen 00:00: Basaglar - [facility] [place] 00 [facility] BD BD 2018-05 No QD BD Ultra-Fine Ultra-Fine 0-09 Ultra-Fine Christina Pen Christina Pen 00:00: Christina Pen [place] 4mm [place] 4mm 00 [place] x 32Gm x 32Gm 4mm x 32Gm [facility] 2018-05 No QD BD Ultra-Fine Ultra-Fine 0-09 Ultra-Fine Christina Pen Christina Pen 00:00: Christina Pen [place] 4mm [place] 4mm 00 [place] x 32Gm x 32Gm 4mm x 32Gm [facility] 2018- No QD BD Ultra-Fine Ultra-Fine 0-09 Ultra-Fine Christina Pen Christina Pen 00:00: Christina Pen [place] 4mm [place] 4mm 00 [place] x 32Gm x 32Gm 4mm x 32Gm [facility] 2018- No QD BD Ultra-Fine Ultra-Fine 0-09 Ultra-Fine Christina Pen Christina Pen 00:00: Christina Pen [place] 4mm [place] 4mm 00 [place] x 32Gm x 32Gm 4mm x 32Gm [facility] 2018- No QD BD Ultra-Fine Ultra-Fine 0-09 Ultra-Fine Christina Pen Christina Pen 00:00: Christina Pen [place] 4mm [place] 4mm 00 [place] x 32Gm x 32Gm 4mm x 32Gm [facility] 2018- No QD BD Ultra-Fine Ultra-Fine 0-09 Ultra-Fine Christina Pen Christina Pen 00:00: Christina Pen [place] 4mm [place] 4mm 00 [place] x 32Gm x 32Gm 4mm x 32Gm [facility] 2018-05 No QD BD Ultra-Fine Ultra-Fine 0-09 Ultra-Fine Christina Pen Christina Pen 00:00: Christina Pen [place] 4mm [place] 4mm 00 [place] x 32Gm x 32Gm 4mm x 32Gm [facility] 2018- No QD BD Ultra-Fine Ultra-Fine 0-09 Ultra-Fine Christina Pen Christina Pen 00:00: Christina Pen [place] 4mm [place] 4mm 00 [place] x 32Gm x 32Gm 4mm x 32Gm [facility] 2018-05 No QD BD Ultra-Fine Ultra-Fine 0-09 Ultra-Fine Christina Pen Christina Pen 00:00: Christina Pen [place] 4mm [place] 4mm 00 [place] x 32Gm x 32Gm 4mm x 32Gm [facility] 2018- No QD BD Ultra-Fine Ultra-Fine 0-09 Ultra-Fine Christina Pen Christina Pen 00:00: Christina Pen [place] 4mm [place] 4mm 00 [place] x 32Gm x 32Gm 4mm x 32Gm [facility] 2018- No QD BD Ultra-Fine Ultra-Fine 0-09 Ultra-Fine Christina Pen Christina Pen 00:00: Christina Pen [place] 4mm [place] 4mm 00 [place] x 32Gm x 32Gm 4mm x 32Gm [facility] 2018-05 No QD BD Ultra-Fine Ultra-Fine 0-09 Ultra-Fine Christina Pen Christina Pen 00:00: Christina Pen [place] 4mm [place] 4mm 00 [place] x 32Gm x 32Gm 4mm x 32Gm [facility] 2018- No QD BD Ultra-Fine Ultra-Fine 0-09 Ultra-Fine Christina Pen Christina Pen 00:00: Christina Pen [place] 4mm [place] 4mm 00 [place] x 32Gm x 32Gm 4mm x 32Gm [facility] 2018- No QD BD Ultra-Fine Ultra-Fine 0-09 Ultra-Fine Christina Pen Christina Pen 00:00: Christina Pen [place] 4mm [place] 4mm 00 [place] x 32Gm x 32Gm 4mm x 32Gm [facility] 2018- No QD BD Ultra-Fine Ultra-Fine 0-09 Ultra-Fine [place] Pen Christina Pen 00:00: Christina Pen [place] 4mm [place] 4mm 00 [place] x 32Gm x 32Gm 4mm x 32Gm [facility] 2018-05 No QD BD Ultra-Fine Ultra-Fine 0-09 Ultra-Fine Christina Pen Christina Pen 00:00: Christina Pen [place] 4mm [place] 4mm 00 [place] x 32Gm x 32Gm 4mm x 32Gm [facility] 2018-05 No QD BD Ultra-Fine Ultra-Fine 0-09 Ultra-Fine Christina Pen Christina Pen 00:00: Christina Pen [place] 4mm [place] 4mm 00 [place] x 32Gm x 32Gm 4mm x 32Gm [facility] 2018-05 No QD BD Ultra-Fine Ultra-Fine 0-09 Ultra-Fine Christina Pen Christina Pen 00:00: Christina Pen [place] 4mm [place] 4mm 00 [place] x 32Gm x 32Gm 4mm x 32Gm [facility] 2018- No QD BD Ultra-Fine Ultra-Fine 0-09 Ultra-Fine Christina Pen Christina Pen 00:00: Christina Pen [place] 4mm [place] 4mm 00 [place] x 32Gm x 32Gm 4mm x 32Gm [facility] 2018-05 No QD BD Ultra-Fine Ultra-Fine 0-09 Ultra-Fine Christina Pen Christina Pen 00:00: Christina Pen [place] 4mm [place] 4mm 00 [place] x 32Gm x 32Gm 4mm x 32Gm [facility] 2018- No QD BD Ultra-Fine Ultra-Fine 0-09 Ultra-Fine Christina Pen Christina Pen 00:00: Christina Pen [place] 4mm [place] 4mm 00 [place] x 32Gm x 32Gm 4mm x 32Gm [facility] 2018- No QD BD Ultra-Fine Ultra-Fine 0-09 Ultra-Fine Christina Pen Christina Pen 00:00: Christina Pen [place] 4mm [place] 4mm 00 [place] x 32Gm x 32Gm 4mm x 32Gm Advair HFA Advair HFA No 2{puffs BID [...] Dexcom G6 Dexcom G6 No Dexcom G6 Poultryman - Poultryman - Poultryman - Atorvastati Atorvastati No Atorvastat n Calcium [...] Dexcom G6 Dexcom G6 No Dexcom G6 Poultryman - Poultryman - Poultryman - Atorvastati Atorvastati No Atorvastat n Calcium [...] Pen No BD Pen Needle Christina Needle Chirstina Needle U/F 32G X 4 U/F 32G [...] La 1 tablet C ommon 750 750 Fortune [facility] Basaglar Basaglar Yes La 52 Units C ommon KwikPen KwikPen Fortune [facility] PreserVisio PreserVisio Yes La as Common n AREDS n AREDS Fortune directed [facility] Citalopram Citalopram Yes La 1 tablet Common Hydrobromid Hydrobromid [facility] e e [facility] Stool Stool Yes La not Common Softener Softener Fortune defined [facility] Gentle Gentle Yes La 1 tablet Commo n Laxative Laxative Fortune as needed S pirit [facility] Atorvastati Atorvastati Yes La 1 tablet Common n Calcium n Calcium Fortune [facility] Contour Contour Yes La USE 3 Common Test Test Fortune TIMES A [facility] DAY [facility] Eliquis 2.5 Eliquis 2.5 Yes La 1 tablet Common mg mg Fortune [facility] Multivitami Multivitami Yes La as Common n Adult n Adult Fortune directed [facility] Carvedilol Carvedilol Yes La TAKE 1 Common Fortune TABLET BY Spirit MOUTH - [facility] TWICE A [facility] DAY ON [facility] DIALYSIS Medical DAYS Center Atorvastati Atorvastati Yes La TAKE 1 Common n Calcium n Calcium Fortune TABLET BY Spirit MOUTH - [facility] EVERY DAY [facility] GlipiZIDE GlipiZIDE Yes La 1 tablet Common [facility] - [facility] Basaglar Basaglar Yes La 50 Units C ommon KwikPen KwikPen [facility] - [facility] Advair HFA Advair HFA No [...] Dexcom G6 Dexcom G6 No Dexcom G6 Poultryman - Poultryman - Poultryman - Carvedilol Carvedilol No Carvedilol 12.5 MG [...] 32G X 4 U/F 32G X 4 Chritsina U/F MM MM 32G X 4 MM glipiZIDE glipiZIDE No glipiZIDE 10 MG 10 MG 10 MG Dexcom G6 Dexcom G6 No Dexcom G6 Poultryman - Poultryman - Poultryman - glipiZIDE 5 glipiZIDE 5 No 1{table [...] Dexcom G6 Dexcom G6 No Dexcom G6 Poultryman - Poultryman - Poultryman - Ipratropium Ipratropium No Ipratropiu -Albuterol -Albuterol [...] Dexcom G6 Dexcom G6 No Dexcom G6 Poultryman - Poultryman - Poultryman - Gentle Gentle No 1{table QD Gentle [...] Dexcom G6 Dexcom G6 No Dexcom G6 Poultryman - Poultryman - Poultryman - PreserVisio PreserVisio No PreserVisi n AREDS [...] Dexcom G6 Dexcom G6 No Dexcom G6 Poultryman - Poultryman - Poultryman - Advair HFA Advair HFA No 2{puffs [...] Dexcom G6 Dexcom G6 No Dexcom G6 Poultryman - Poultryman - Poultryman - Advair HFA Advair HFA No 2{puffs [...] Dexcom G6 Dexcom G6 No Dexcom G6 Poultryman - Poultryman - Poultryman - Advair HFA Advair HFA No 2{puffs [...] Dexcom G6 Dexcom G6 No Dexcom G6 Poultryman - Poultryman - Poultryman - Atorvastati Atorvastati No 1{table QD Atorvastat [...] Carvedilol 12.5 MG 12.5 MG 12.5 MG Immunizations Ordered Immunization Filled Immunization Date Status Commen ts Source Name Name Natalie Estrada 2021-03-30 [facility]pleted [facility] - [facility] FluAD FluAD 2021-03-30 Completed [facility]:13[facility] - [facility] FluAD FluAD 2021-03-30 Completed [facility]:13:[facility] - [facility] FluAD FluAD 2021-03-30 Completed [facility] 13:13:00 - [facility] FluAD FluAD 2021-03-30 Completed [facility] 13:13:[facility] - [facility] FluAD FluAD 2021-03-30 Completed [facility]:13[facility] - [facility] FluAD FluAD 2021-03-30 Completed [facility] 13:13:00 - [facility] FluAD FluAD 2021-03-30 Completed [facility] 13:13:00 - [facility] FluAD FluAD 2021-03-30 Completed [facility] 13:13:00 - [facility] FluAD FluAD 2021-03-30 Completed [facility] 13:13:00 - [facility] FluAD FluAD 2021-03-30 Completed [facility] 13:13:00 - [facility] FluAD FluAD 2021-03-30 Completed [facility] 13:13:00 - [facility] FluAD FluAD 2021-03-30 Completed [facility] 13:13:00 - [facility] FluAD FluAD 2021-03-30 Completed [facility] 13:13:00 - [facility] FluAD FluAD 2021-03-30 Completed [facility] 13:13:00 - [facility] FluAD FluAD 2021-03-30 Completed [facility] 13:13:00 - [facility] FluAD FluAD 2021-03-30 Completed [facility] 13:13:00 - [facility] FluAD FluAD 2021-03-30 Completed [facility] 13:13:00 - [facility] FluAD FluAD 2021-03-30 Completed [facility] 13:13:00 - [facility] FluAD FluAD 2021-03-30 Completed [facility] 13:13[facility]00 - [facility] COVID-19 Vaccine COVID-19 Vaccine 2020-08-19 Completed [facility] (Andrea) (Andrea) 09:17:00 - [facility] COVID-19 Vaccine COVID-19 Vaccine 2020-08-19 Completed [facility] (Andrea) (Andrea) 09:17:00 - [facility] COVID-19 Vaccine COVID-19 Vaccine 2020-08-19 Completed [facility] (Andrea) (Andrea) 09:17:00 - [facility] COVID-19 Vaccine COVID-19 Vaccine 2020-08-19 Completed [facility] (Andrea) (Andrea) 09:17:00 - [facility] COVID-19 Vaccine COVID-19 Vaccine 2020-08-19 Completed [facility] (Andrea) (Andrea) 09:17:00 - [facility] COVID-19 Vaccine COVID-19 Vaccine 2020-08-19 Completed [facility] (Andrea) (Andrea) 09:17:00 - [facility] COVID-19 Vaccine COVID-19 Vaccine 2020-08-19 Completed [facility] (Andrea) (Andrea) 09:17:00 - [facility] COVID-19 Vaccine COVID-19 Vaccine 2020-08-19 [...] COVID-19 Vaccine 2020-08-19 Completed [facility] (Adnrea) (Andrea) 09:17:00 [facility] COVID-19 Vaccine COVID-19 Vaccine 2020-08-19 Completed [facility] (Andrea) (Andrea) 09:17:00 - [facility] COVID-19 Vaccine COVID-19 Vaccine 2020-08-19 Completed [facility] (Andrea) (Andrea) 09:17:00 [facility] COVID-19 Vaccine COVID-19 Vaccine 2020-08-19 Completed [facility] (Andrea) (Andrea) 09:17:00 - [facility] COVID-19 Vaccine COVID-19 Vaccine 2020-08-19 Completed [facility] (Andrea) (Andrea) 09:17:00 - [facility] COVID-19 Vaccine COVID-19 Vaccine 2020-08-19 Completed [facility] (Andrea) (Andrea) 09:17:00 [facility] COVID-19 Vaccine COVID-19 Vaccine 2020-08-19 Completed [facility] (Andrea) (Andrea) 09:17:00 [facility] COVID-19 Vaccine COVID-19 Vaccine 2020-08-19 Completed [facility] (Andrea) (Andrea) 09:17:00 - [facility] COVID-19 Vaccine COVID-19 Vaccine 2020-08-19 Completed [facility] (Andrea) (Andrea) 09:17:00 [facility] COVID-19 Vaccine COVID-19 Vaccine 2020-08-19 Completed [facility] (Andrea) (Andrea) 09:17:00 [facility] Vital Signs Vital Name Observation Time Observation Value Comments Source Systolic blood 2022-10-31 17:36:00 132 mm[Hg] Univer sity of pressure [facility] Diastolic blood 2022-10-31 17:36:00 61 mm[Hg] Unive rsity of pressure [facility] Heart rate 2022-10-31 17:36:00 67 /min [facility] Respiratory rate 2022-10-31 17:36:00 19 /min General acute hospital Oxygen saturation in 2022-10-31 17:36:00 100 /min [facility] blood by [facility] Pulse oximetry Branch Body temperature 2022-10-31 13:59:00 37.39 Makayla [facility] acute hospital Body height 2022-10-31 13:59:00 177.8 cm [facility] Body weight 2022-10-31 13:59:00 71.668 kg [facility] BMI 2022-10-31 13:59:00 22.67 kg/m2 [facility] Heart rate 2022-10-15 19:00:00 92 /min [facility] Respiratory rate 2022-10-15 19:00:00 13 /min [facility] Oxygen saturation in 2022-10-15 19:00:00 86 /min [facility] Arterial blood by [facility] Pulse oximetry Branch Systolic blood 2022-10-15 17:00:00 144 mm[Hg] Univer sity of [facility] Diastolic blood 2022-10-15 17:00:00 53 mm[Hg] Unive [facility] Body temperature 2022-10-15 16:08:[address] [facility] Body weight 2022-10-15 14:00:00 70.489 kg [facility] BMI 2022-10-15 14:00:00 25.86 kg/m2 [facility] Body height 2022-10-10 19:00:00 165.1 cm [facility] height 2022-02-17 15:00:00 70 [in_i] [facility] weight 2022-02-17 15:00:00 208 [lb_av] [facility] temperature 2022-02-17 15:00:00 98.1 [degF] Common S pirit [facility] bmi 2022-02-17 15:00:00 29.84 kg/m2 [facility] blood pressure 2022-02-17 15:00:00 121 mm[Hg] [facility] - systolic [facility] blood pressure 2022-02-17 15:00:00 61 mm[Hg] [facility] - diastolic [facility] height 2022-01-06 14:30:00 70 [in_i] [facility] weight 2022-01-06 14:30:00 208 [lb_av] Common S pirit - [facility] bmi 2022-01-06 14:30:00 29.84 kg/m2 Common S pirit - [facility] blood pressure 2022-01-06 14:30:00 137 mm[Hg] [facility] - systolic [facility] blood pressure 2022-01-06 14:30:00 79 mm[Hg] [facility] - diastolic [facility] height 2021-11-03 09:45:00 70 [in_i] Common S [facility] weight 2021-11-03 09:45:00 210 [lb_av] Common S pirit [facility] bmi 2021-11-03 09:45:00 30.13 kg/m2 [facility] blood pressure 2021-11-03 09:45:00 144 mm[Hg] [facility] - systolic [facility] blood pressure 2021-11-03 09:45:00 86 mm[Hg] [facility] - diastolic [facility] height 2021-07-28 14:10:00 70 [in_i] Common S [facility] weight 2021-07-28 14:10:00 211.8 [lb_av] Common [facility] - [facility] temperature 2021-07-28 14:10:00 97.5 [degF] Common S pirit [facility] bmi 2021-07-28 14:10:00 30.39 kg/m2 [facility] S pirit [facility] oximetry 2021-07-28 14:10:00 93 % Common [facility] respiratory rate 2021-07-28 14:10:00 16 /min Comm on [facility] - [facility] blood pressure 2021-07-28 14:10:00 134 mm[Hg] [facility] - systolic [facility] blood pressure 2021-07-28 14:10:00 63 mm[Hg] [facility] - diastolic [facility] height 2021-07-28 13:20:00 70 [in_i] [facility] 2021-07-28 13:20:00 211.8 [lb_av] Common [facility] temperature 2021-07-28 13:20:00 97.5 [degF] [facility] 2021-07-28 13:20:00 30.39 kg/m2 Common S [facility] oximetry 2021-07-28 13:20:00 93 % Common [facility] respiratory rate 2021-07-28 13:20:00 16 /min Comm on [facility] blood pressure 2021-07-28 13:20:00 134 mm[Hg] Common [facility] - systolic [facility] blood pressure 2021-07-28 13:20:00 62 mm[Hg] Common [facility] - diastolic [facility] height 2021-04-28 13:10:00 70 [in_i] Common [facility] weight 2021-04-28 13:10:00 215.9 [lb_av] [facility] temperature 2021-04-28 13:10:00 97.3 [degF] Common [facility] bmi 2021-04-28 13:10:00 30.98 kg/m2 [facility] oximetry 2021-04-28 13:10:00 95 % [facility] respiratory rate 2021-04-28 13:10:00 17 /min Comm on [facility] blood pressure 2021-04-28 13:10:00 121 mm[Hg] [facility] - systolic [facility] blood pressure 2021-04-28 13:10:00 60 mm[Hg] [facility] - diastolic [facility] height 2021-03-12 09:30:00 70 [in_i] Common [facility] weight 2021-03-12 09:30:00 211.4 [lb_av] Common [facility] temperature 2021-03-12 09:30:00 97.7 [degF] Common S pirit - [facility] bmi 2021-03-12 09:30:00 30.33 kg/m2 Common [facility] p[facility] - [facility] oximetry 2021-03-12 09:30:00 95 % Common S p[facility] - [facility] respiratory rate 2021-03-12 09:30:00 16 /min [facility] on [facility] - [facility] blood pressure 2021-03-12 09:30:00 132 mm[Hg] [facility] - systolic [facility] blood pressure 2021-03-12 09:30:00 67 mm[Hg] [facility] - diastolic [facility] Heart Rate 2022-01-02 21:14:00 [facility] Rate 2022-01-02 21:14:00 [facility] Systolic (mm Hg) 2022-01-02 21:14:00 [facility] Diastolic (mm Hg) 2022-01-02 21:14:00 [facility] Height 2022-01-02 17:28:00 167.64 cm [facility] BMI Calculated 2022-01-02 17:28:00 [facility] Weight 2022-01-02 17:28:00 [facility] Systolic (mm Hg) 2022-01-02 17:28:00 [facility] [place] Diastolic (mm Hg) 2022-01-02 17:28:00 Mem [facility] [place] Heart Rate 2022-01-02 17:28:00 [facility]itory Rate 2022-01-02 17:28:00 [facility] [place] Temperature Oral (F) 2022-01-02 17:28:00 97.5 F [facility] Temperature Oral (F) 2021-12-17 00:00:00 98.0 F [facility] Rate 2021-12-17 00:00:00 [facility] Respitory Rate 2021-12-17 00:00:00 [facility] Systolic (mm Hg) 2021-12-17 00:00:00 [facility] [place] Diastolic (mm Hg) 2021-12-17 00:00:00 Mem [facility]rial [place] Heart Rate 2021-12-16 21:00:00 [facility] Respitory Rate 2021-12-16 21:00:00 [facility] [place] Systolic (mm Hg) 2021-12-16 21:00:00 [facility] [place] Diastolic (mm Hg) 2021-12-16 21:00:00 Mem [facility] Temperature Oral (F) 2021-12-16 21:00:00 98.0 F [facility] Rate 2021-12-16 20:20:00 [facility] Respitory Rate 2021-12-16 20:20:00 [facility] [place] Systolic (mm Hg) 2021-12-16 20:20:00 Heath [facility] Diastolic (mm Hg) 2021-12-16 20:20:00 Mem [facility] [place] Temperature Oral (F) 2021-12-16 20:20:00 97.3 F [facility] Heart Rate 2021-12-15 08:58:06 [facility] Systolic (mm Hg) 2021-12-15 08:58:01 [facility] Diastolic (mm Hg) 2021-12-15 08:58:01 Mem [facility] Rate 2021-12-15 08:58:01 [facility] Temperature Oral (F) 2021-12-15 08:57:27 98.2 F [facility] Temperature Oral (F) 2021-12-15 05:00:00 97.5 F [facility] Heart Rate 2021-12-15 05:00:00 [facility] Systolic (mm Hg) 2021-12-15 05:00:00 [facility] [place] Diastolic (mm Hg) 2021-12-15 05:00:00 Mem [facility] Height 2021-12-15 03:03:00 177.8 cm [facility] Weight 2021-12-15 03:03:00 [facility] BMI Calculated 2021-12-15 03:03:00 [facility] [place] Temperature Oral (F) 2021-12-15 01:20:46 97.4 F [facility] Systolic (mm Hg) 2021-12-15 01:20:42 [facility] [place] Diastolic (mm Hg) 2021-12-15 01:20:42 Mem [facility] [place] Respitory Rate 2021-12-15 00:45:00 [facility] Height 2021-12-15 00:13:00 172.72 cm [facility] BMI Calculated 2021-12-15 00:13:00 [facility] Weight 2021-12-15 00:13:00 [facility]itory Rate 2021-12-14 23:56:00 [facility] [place] Height 2021-12-14 23:34:00 172.72 cm [facility] Weight 2021-12-14 23:34:00 [facility] Respitory Rate 2021-12-14 23:18:00 [facility] BMI Calculated 2021-12-14 19:29:00 [facility] Temperature Oral (F) 2021-12-04 14:04:00 97.9 F [facility] Rate 2021-12-04 14:04:00 [facility] Respitory Rate 2021-12-04 14:04:00 [facility] Systolic (mm Hg) 2021-12-04 14:04:00 Heath [facility] Diastolic (mm Hg) 2021-12-04 14:04:00 [facility] [place] Temperature Oral (F) 2021-12-04 12:30:00 97.9 F [facility] Rate 2021-12-04 12:30:00 [facility] Respitory Rate 2021-12-04 12:30:00 [facility] Systolic (mm Hg) 2021-12-04 12:30:00 Heath [facility] Diastolic (mm Hg) 2021-12-04 12:30:00 Mem [facility] [place] Respitory Rate 2021-12-04 11:45:00 [facility] Heart Rate 2021-12-04 11:45:00 [facility] Temperature Oral (F) 2021-12-04 11:45:00 98.4 F [facility] Systolic (mm Hg) 2021-12-04 04:57:00 Heath [facility] Diastolic (mm Hg) 2021-12-04 04:57:00 Mem [facility] Weight 2021-12-03 23:22:00 [facility] Respitory Rate 2021-11-27 00:01:00 [facility] Heart Rate 2021-11-26 21:50:00 [facility] Respitory Rate 2021-11-26 21:50:00 [facility] [place] Systolic (mm Hg) 2021-11-26 21:50:00 [facility] [place] Diastolic (mm Hg) 2021-11-26 21:50:00 [facility] Temperature Oral (F) 2021-11-26 18:40:00 98.0 F [facility] Rate 2021-11-26 18:40:00 [facility] Respitory Rate 2021-11-26 18:40:00 [facility] Systolic (mm Hg) 2021-11-26 18:40:00 Heath [facility] Diastolic (mm Hg) 2021-11-26 18:40:00 Mem orial [place] [facility] Rate 2021-11-26 16:41:35 [facility] Systolic (mm Hg) 2021-11-26 16:41:27 Heath [facility] Diastolic (mm Hg) 2021-11-26 16:41:27 Mem [facility] Temperature Oral (F) 2021-11-26 16:40:28 98.4 F [facility] Temperature Oral (F) 2021-11-26 13:00:17 98.3 F [facility] Height 2021-11-25 03:24:00 177.8 [facility] Calculated 2021-11-25 03:24:00 Memkerline al [place] Weight 2021-11-25 03:24:00 [facility] Procedures Procedure Date / Time Performing Clinician Source Performed CT ABDOMEN PELVIS WO 2022-10-31 14:52:20 Ronnie Ayala [facility] CONTRAST Medical Branch CT THORAX WO CONTRAST 2022-10-31 14:52:20 Ronnie Ayala [facility] Branch LIPASE 2022-10-31 14:22:00 Ronnie Ayala [facility] COMP. METABOLIC PANEL 2022-10-31 14:22:00 Ronnie Ayala [facility] ([id number]) [facility] [place] CBC WITH DIFF 2022-10-31 14:22:00 Ronnie Ayala [facility] NOTICE OF PRIVACY 2022-10-31 13:54:24 Doctor Unassigned, [facility] PRACTICES [place] [facility] [place] CONSENT/REFUSAL FOR 2022-10-31 13:53:28 Doctor Unassigned, [facility] DIAGNOSIS AND TREATMENT [place] [facility] [place] POCT GLUCOSE 2022-10-15 16:16:00 Mine Mosqueda [facility] (AUTOMATED) [facility] [place] XR CHEST 1 VW 2022-10-15 14:27:00 Abdoul [facility] POCT GLUCOSE 2022-10-15 12:24:00 Dominic [facility] (AUTOMATED) [facility] BASIC METABOLIC PANEL 2022-10-15 09:26:00 Marianna Barbour [facility] (NA, K, CL, CO2, Medical Branch GLUCOSE, BUN, CREATININE, CA) CBC WITH DIFF 2022-10-15 09:26:00 Marianna Barbour [facility] PREPARE PACKED RBC 2022-10-15 05:15:09 Anita Sanchez [facility] POCT GLUCOSE 2022-10-15 01:54:00 Mine Mosqueda [facility] (AUTOMATED) [facility] XR CHEST 1 VW 2022-10-15 01:09:38 Abdoul [facility] IR THORACENTESIS WITH 2022-10-14 23:00:51 Marianna Barbour [facility] IMAGING [facility] GLUCOSE BODY FLUID 2022-10-14 22:53:00 Marianna Barbour [facility] T.PROTEIN BODY FLUID 2022-10-14 22:53:00 Marianna Barbour [facility] BODY FLUID DIRECT COUNT 2022-10-14 22:53:00 Marianna Barbour [facility] BODY FLUID 2022-10-14 22:53:00 Marianna Barbour [facility] CULTURE(AEROBIC/ANAEROB [facility] IC) LDH TOTAL BODY FLUID 2022-10-14 22:53:00 Marianna Barbour [facility] XR CHEST 1 VW 2022-10-14 22:38:00 Abdoul [facility] POCT GLUCOSE 2022-10-14 21:38:00 Dominic [facility] (AUTOMATED) Medical Branch HEPATITIS B SURFACE 2022-10-14 19:06:00 Anita Sanchez [facility] ANTIBODY Medical Branch HEPATITIS B SURFACE 2022-10-14 19:06:00 Anita Sanchez [facility] ANTIGEN Medical Branch POCT GLUCOSE 2022-10-14 16:36:00 Mine Mosqueda [facility] (AUTOMATED) Medical Branch POCT GLUCOSE 2022-10-14 12:50:00 Mine Mosqueda [facility] (AUTOMATED) Medical Branch PHOSPHORUS 2022-10-14 08:27:00 Dominic [facility] Branch MAGNESIUM 2022-10-14 08:27:00 Dominic [facility] BASIC METABOLIC PANEL 2022-10-14 08:27:00 Mine Mosqueda [facility] (NA, K, CL, CO2, Medical Branch GLUCOSE, BUN, CREATININE, CA) VANCOMYCIN TROUGH 2022-10-14 08:27:00 Dahiana Albert [facility] CBC WITH DIFF 2022-10-14 08:27:00 Mine Mosqueda [facility] DISCLOSURE AND CONSENT, 2022-10-14 05:01:00 Doctor Unassigned, [facility] MEDICAL AND SURGICAL [place] [facility] PROCEDURES POCT GLUCOSE 2022-10-14 03:13:00 Mine Mosqueda [facility] (AUTOMATED) Medical Branch POCT GLUCOSE 2022-10-13 21:41:00 Dominic [facility] (AUTOMATED) Medical Branch POCT GLUCOSE 2022-10-13 16:25:00 Mine Mosqueda [facility] (AUTOMATED) Medical Branch POCT GLUCOSE 2022-10-13 12:34:00 Mine Mosqueda [facility] (AUTOMATED) Medical Branch BASIC METABOLIC PANEL 2022-10-13 09:16:00 Mine Mosqueda [facility] (NA, K, CL, CO2, Medical Branch GLUCOSE, BUN, CREATININE, CA) CBC WITH DIFF 2022-10-13 09:16:00 Mine Mosqueda [facility] POCT GLUCOSE 2022-10-13 01:24:00 Mine Mosqueda [facility] (AUTOMATED) Medical Branch POCT GLUCOSE 2022-10-12 21:23:00 Dominic [facility] (AUTOMATED) Medical Branch TRANSFUSE PACKED RBC 2022-10-12 18:39:00 Luis A [facility] PREPARE PACKED RBC 2022-10-12 18:29:53 Luis A [facility] POCT GLUCOSE 2022-10-12 16:47:00 Dominic [facility] (AUTOMATED) [facility] BLOOD CULTURE SCREEN 2022-10-12 15:52:00 Luis A [facility] BLOOD CULTURE SCREEN 2022-10-12 15:40:00 Luis A [facility] XR CHEST 1 VW 2022-10-12 14:31:35 Dominic [facility] POCT GLUCOSE 2022-10-12 12:44:00 Dominic [facility] (AUTOMATED) [facility] PHOSPHORUS 2022-10-12 09:58:00 Dominic [facility] MAGNESIUM 2022-10-12 09:58:00 Dominic [facility] TROPONIN I 2022-10-12 09:58:00 Tim Alejandro [facility] BASIC METABOLIC PANEL 2022-10-12 09:58:00 Mine Mosqueda [facility] (NA, K, CL, CO2, Medical Branch GLUCOSE, BUN, CREATININE, CA) LIPID PANEL 2022-10-12 09:58:00 Tim AlejandroHTasha [facility] ([id number])(TOTAL Medical Branch CHOLESTEROL, TRIGLYCERIDES, HDL) CBC WITH DIFF 2022-10-12 09:58:00 Dominic [facility] N-TERMINAL PRO-BNP 2022-10-12 09:58:00 Tim Alejandro [facility] POCT GLUCOSE 2022-10-12 06:42:00 Dominic [facility] (AUTOMATED) [facility] TROPONIN I 2022-10-12 03:10:00 Luis A [facility] POCT GLUCOSE 2022-10-12 01:19:00 Mine Mosqueda [facility] (AUTOMATED) [facility] OCCULT (GUAIAC) BLOOD 2022-10-11 21:58:00 Mine Mosqueda [facility] POCT GLUCOSE 2022-10-11 21:19:00 Dominic [facility] (AUTOMATED) [facility] IRON 2022-10-11 18:20:00 Dominic [facility] TOTAL IRON BINDING 2022-10-11 18:20:00 Mine Mosqueda [facility] CAPACITY Medical Branch TROPONIN I 2022-10-11 18:20:00 Luis A [facility] RETICULOCYTES AUTOMATED 2022-10-11 18:20:00 Dominic [facility] PROCALCITONIN 2022-10-11 18:20:00 Dominic [facility] POCT GLUCOSE 2022-10-11 16:58:00 Dominic [facility] (AUTOMATED) [facility] POCT GLUCOSE 2022-10-11 16:05:00 Dominic [facility] (AUTOMATED) [facility] ABORH CONFIRMATION (LAB 2022-10-11 15:23:00 Luis A [facility] ONLY) [facility] [place] TROPONIN I 2022-10-11 15:08:00 Luis A [facility] [place] POCT GLUCOSE 2022-10-11 14:22:00 Dominic [facility] (AUTOMATED) [facility] TRANSTHORACIC ECHO 2022-10-11 13:32:00 Luis A [facility] (TTE) COMPLETE [facility] POCT GLUCOSE 2022-10-11 13:04:00 Dominic [facility] (AUTOMATED) [facility] POCT GLUCOSE 2022-10-11 12:04:00 Dominic [facility] (AUTOMATED) [facility] POCT GLUCOSE 2022-10-11 11:21:00 Dominic [facility] (AUTOMATED) [facility] HB ABO GROUPING 2022-10-11 11:20:00 Luis A [facility] PHOSPHORUS 2022-10-11 09:41:00 Luis A [facility] MAGNESIUM 2022-10-11 09:41:00 Luis A [facility] TROPONIN I 2022-10-11 09:41:00 Luis A [facility] BASIC METABOLIC PANEL 2022-10-11 09:41:00 Luis A [facility] (NA, K, CL, CO2, Medical Branch GLUCOSE, BUN, CREATININE, CA) CBC WITHOUT DIFF 2022-10-11 09:41:00 Luis A [facility] POCT GLUCOSE 2022-10-11 09:41:00 Dominic [facility] (AUTOMATED) [facility] N-TERMINAL PRO-BNP 2022-10-11 09:41:00 [facility] PO[facility] GLU[facility]SE 2022-10-11 08:43:00 Dominic [facility] (AUTOMATED) [facility] POCT GLUCOSE 2022-10-11 07:36:00 Dominic [facility] (AUTOMATED) [facility] POCT GLUCOSE 2022-10-11 06:18:00 Dominic [facility] (AUTOMATED) [facility] POCT GLUCOSE 2022-10-11 05:52:00 Dominic [facility] (AUTOMATED) [facility] POCT GLUCOSE 2022-10-11 04:24:00 Dominic [facility] (AUTOMATED) [facility] POCT GLUCOSE 2022-10-11 03:33:00 Dominic [facility] (AUTOMATED) [facility] POCT GLUCOSE 2022-10-11 02:08:00 Dominic [facility] (AUTOMATED) [facility] POCT GLUCOSE 2022-10-11 01:08:00 Dominic [facility] (AUTOMATED) [facility] MRSA / MSSA SCREEN BY 2022-10-11 00:16:00 Mine Mosqueda [facility] PCRCATHIE [facility] CRITICAL CARE 2022-10-10 23:43:37 Dom [facility] Branch POCT GLUCOSE 2022-10-10 23:20:00 Dominic [facility] (AUTOMATED) [facility] POCT GLUCOSE 2022-10-10 21:42:00 Dom [facility] (AUTOMATED) [facility] POCT GLUCOSE 2022-10-10 21:25:00 Dom [facility] (AUTOMATED) [facility] HB ECG ROUTINE & RHYTHM 2022-10-10 21:20:02 Fabian Fernandes [facility] STRIP Medical Branch AC PANEL 21 + LACTIC 2022-10-10 20:50:00 Fabian Fernandes [facility] ACID [facility] POCT GLUCOSE 2022-10-10 20:32:00 Fabian Fernandes [facility] (AUTOMATED) [facility] CT THORAX WO CONTRAST 2022-10-10 20:31:25 Fabian [facility] ABDOMEN PELVIS WO 2022-10-10 20:30:49 Fabian Fernandes [facility] CONTRAST [facility] CT HEAD WO CONTRAST 2022-10-10 20:30:49 Fabian Fernandes [facility] POCT GLUCOSE 2022-10-10 19:43:00 Fabian Fernandes [facility] (AUTOMATED) [facility] XR CHEST 1 VW 2022-10-10 19:40:00 Fabian Fernandes [facility] BLOOD CULTURE SCREEN 2022-10-10 19:38:00 Fabian Fernandes [facility] BLOOD CULTURE WORKUP 2022-10-10 19:38:00 Fabian Fernandes [facility] GRAM POSITIVE BLOOD 2022-10-10 19:38:00 Fabian Fernandes [facility] PATHOGENS DNA Medical Branch PROBE-AEROBIC ASSIGNMENT OF BENEFITS 2022-10-10 19:11:20 Doctor Unassigned, [facility] [place] [facility] [place] CONSENT/REFUSAL FOR 2022-10-10 19:10:59 Doctor Unassigned, [facility] DIAGNOSIS AND TREATMENT [place] [facility] TROPONIN I 2022-10-10 19:08:00 Fabian Fernandes [facility] COMP. METABOLIC PANEL 2022-10-10 19:08:00 Fabian Fernandes [facility] ([id number]) [facility] CBC WITH DIFF 2022-10-10 19:08:00 Dom Fabian [facility] GLYCOSYLATED HEMOGLOBIN 2022-10-10 19:08:00 Mine Mosqueda [facility] (A1C) [facility] N-TERMINAL PRO-BNP 2022-10-10 19:08:00 Fabian Fernandes [facility] POCT GLUCOSE 2022-10-10 18:58:00 Dom Fabian [facility] (AUTOMATED) [facility] [id number] 2021-10-18 00:00:00 [facility] day Encounters Start End Encounter Admission Attending Care Care Encounter Source Date/Time Date/Time Type Type Clinicians Facility Department ID 2022-05-20 Outpatient [facility], STLMLC STLMLC [id number] Common 08:24:01 [facility] 2022-05-15 Outpatient [facility], STLMLC STLMLC [id number] Common 08:53:00 [facility] 2022-05-11 Outpatient [facility], STLMLC STLMLC [id number] [place] 14:49:00 [place] [address] [facility] 2022-05-08 Outpatient [facility], STLMLC STLMLC [id number] Common 10:15:01 [facility] 2022-05-07 Outpatient [facility], STLMLC STLMLC [id number] Common 11:53:00 [facility] 2022-02-18 Outpatient [facility], STLMLC STLMLC [id number] Common 12:05:01 [facility] 2022-01-01 Outpatient [facility], STLMLC STLMLC [id number] Common 10:24:01 [facility] 2021-12-29 Outpatient [facility], STLMLC STLMLC [id number] Common 08:34:00 [facility] 2021-12-16 Outpatient [facility] [id number] [place] 14:42:[id number] [place] [address] 2021-11-19 Outpatient [facility], STLMLC STLMLC [id number] Common 08:42:01 [facility] 2021-11-03 Outpatient [facility], STLMLC STLMLC [id number] Common 10:33:01 [facility] 2021-10-15 Outpatient 3 [id number] ENCPL REF [id number] [facility] 08:19:25 [facility] [place] 2021-10-14 Outpatient 3 [id number] ENCPL REF [id number] [facility] 11:59:03 [facility]17 [facility] [place] 2021-06-25 Outpatient [facility], STLMLC STLMLC [id number] Common 14:22:06 [place] [address] [facility] 2021-06-25 Outpatient [facility], STLMLC STLMLC [id number] Common 14:13:51 [place] [address] [facility] 2021-06-25 Outpatient [facility], STLMLC STLMLC [id number] Common 13:38:12 [place] [address] [facility] 2021-06-25 Outpatient [facility], STLMLC STLMLC [id number] Common 12:43:29 [place] [address] [facility] 2021-06-25 Outpatient [facility], STLMLC STLMLC [id number] Common 12:42:27 [place] [address] [facility] 2021-06-25 Outpatient [facility], STLMLC STLMLC [id number] Common 12:31:12 [place] [address] [facility] 2021-06-25 Outpatient [facility], STLMLC STLMLC [id number] Common 12:31:03 [place] [address] [facility] 2021-06-25 Outpatient [facility], STLMLC STLMLC [id number] Common 12:30:21 [place] [address] [facility] 2021-06-25 Outpatient [facility], STLMLC STLMLC [id number] Common 11:00:43 [place] [address] [facility] 2022-10-31 2022-10-31 Emergency X LUCY NHWILLOW ERT [id number] Univers 09:00:00 12:40:00 RONNIE [facility] 2022-10-31 2022-10-31 Emergency STEPHANIE Ayala [id number] Univers 09:00:00 12:40:00 Ronnie CARRASQUILLO [id number] i tyree [facility] [id number] [facility] [id number] [place] [address] Branch 2022-10-16 2022-10-16 Transition SHAJI Davis [id number] Univers 00:00:00 00:00:00 of Care Ubaldo VALLE [id number] ity MAGGIEJUNITO [id number] [facility] [id number] [facility] 403 Branch 2022-10-10 2022-10-15 Inpatient X [facility] [id number] Univers 13:54:00 14:40:00 MARIANNA ity [facility] 2022-10-10 2022-10-15 Hospital Fabian Fernandes RUST [id number] Univers 13:54:00 14:40:00 Encounter Dominic Mine FOREIGN [id number] ity of [place] [place] [id number] [facility] [id number] [facility] 080 Branch 2022-07-03 2022-07-03 (TEL) STLMLC STLMLC [id number] Co mmon 00:00:00 00:00:00 [facility] 2022-06-08 2022-06-08 (TEL) STLMLC STLMLC [id number] Co mmon 00:00:00 00:00:00 [facility] 2022-05-06 2022-05-06 (TEL) STLMLC STLMLC [id number] Co mmon 00:00:00 00:00:00 [facility] 2022-04-03 2022-04-03 (TEL) STLMLC STLMLC [id number] Co mmon 00:00:00 00:00:00 [facility] 2022-02-17 2022-02-17 (TEL) STLMLC STLMLC [id number] Co mmon 00:00:00 00:00:00 [facility] 2022-02-17 2022-02-17 OFFICE STLMLC STLMLC [id number] Co mmon 00:00:00 00:00:00 VISIT Spirit ESTAB PT - CHI LEVEL 4 [facility] 2022-01-06 2022-01-06 OFFICE STLMLC STLMLC [id number] Co mmon 00:00:00 00:00:00 VISIT [facility] ESTAB PT - CHI LEVEL 4 [facility] 2022-01-02 2022-01-02 [facility] [id number] Memoria 17:12:00 21:33:00 r Booker 03 [facility] 2022-01-02 2022-01-02 [facility] [id number] Memoria 17:12:00 21:33:00 r Booker 03 [facility] 2022-01-02 2022-01-02 Emergency E ABNER, RADHABL BL [id number] MHBL 12:12:00 16:33:00 CAREY 2022-01-02 2022-01-[address] [id number] 12:12:00 16:33:00 Carey R 03 2022-01-01 2022-01-01 (TEL) STLMLC STLMLC [id number] Co mmon 00:00:00 00:00:00 [facility] 2021-12-31 2021-12-31 (TEL) STLMLC STLMLC [id number] Co mmon 00:00:00 00:00:00 [facility] 2021-12-14 2021-12-17 [facility] [id number] Memoria 19:19:49 03:14:00 latrice Celeste 02 [facility] 2021-12-14 2021-12-17 [facility] [id number] Memoria 19:19:49 03:14:00 latrice Celeste 02 [facility] 2021-12-14 2021-12-16 Inpatient E SAKORTNEY, JANE MED [id number] MHBL 18:26:00 22:14:00 ZACHARY 2021-12-14 2021-12-16 Outpatient Sajja, MHPL PL [id number] 14:19:49 22:14:00 Zachary 2021-12-14 2021-12-14 Outpatient Brook, ARDHAPL PL [id number] 14:19:49 14:19:49 Monse 02 [place] 2021-12-03 2021-12-04 [facility] [id number] Memoria 23:19:26 14:53:00 r Booker 01 [facility] 2021-12-03 2021-12-04 [facility] [id number] Memoria 23:19:26 14:53:00 r [place] 01 [facility] 2021-12-03 2021-12-04 Outpatient Fadowole, MHPL MHPL [id number] 18:19:26 09:53:00 [facility] 2021-12-03 2021-12-04 Emergency E ALMAOLE, MHBL BL [id number] BL 18:19:00 09:53:00 PEPPER 2021-12-01 2021-12-01 Outpatient COH COH PIJFJKR ZIB COH 00:00:00 00:00:00 D-[id number] 2021-11-27 [facility] [id number] Memoria 03:23:10 00:12:00 n r Booker 00 [facility] 2021-11-25 2021-11-27 [facility] [id number] Memoria 03:23:10 00:12:00 n r Booker 00 [facility] 2021-11-25 2021-11-26 Outpatient E AJKRISTAL, MHBL MED [id number] BL 10:37:00 19:12:00 MONSE 2021-11-24 2021-11-26 Outpatient Ajibade, MHPL PL [id number] 22:23:10 19:12:00 M[facility] 00 [facility] 2021-11-24 2021-11-26 Outpatient Ajibade, MHPL PL [id number] 22:23:10 19:12:00 Monse 00 [place] 2021-11-24 2021-11-24 (TEL) [facility] [id number] Co mmon 00:00:00 00:00:00 [facility] 2021-10-16 2021-11-03 Inpatient 3 NATHANIEL, ENCPL GILDA [id number] [facility] 23:26:00 21:40:00 CHILANGO 0519 [facility] [place] 2021-11-03 2021-11-03 OFFICE STLMLC STLMLC [id number] Co mmon 00:00:00 00:00:00 VISIT NEW Spir it PT LEVEL 4 [facility] 2021-10-17 2021-10-17 (TEL) STLMLC STLMLC [id number] Co mmon 00:00:00 00:00:00 [facility] 2021-08-12 2021-08-12 (TEL) STLMLC STLMLC [id number] Co mmon 00:00:00 00:00:00 [facility] 2021-07-28 2021-07-28 OFFICE STLMLC STLMLC [id number] Co mmon 00:00:00 00:00:00 VISIT [facility] PT - CHI LEVEL 4 [facility] 2021-07-28 2021-07-28 SUB ANNUAL STLMLC STLMLC [id number] Common 00:00:00 00:00:00 MCR [facility] - [facility] VISIT [facility] 2021-06-12 2021-06-12 (TEL) STLMLC STLMLC [id number] Co mmon 00:00:00 00:00:00 [facility] 2021-05-21 2021-05-21 (TEL) STLMLC STLMLC [id number] Co mmon 00:00:00 00:00:00 [facility] 2021-04-28 2021-04-28 OFFICE STLMLC STLMLC [id number] Co mmon 00:00:00 00:00:00 VISIT [facility] PT - CHI LEVEL 4 [facility] 2021-03-26 2021-03-26 (TEL) STLMLC STLMLC [id number] Co mmon 00:00:00 00:00:00 [facility] 2021-03-12 2021-03-12 OFFICE STLMLC STLMLC [id number] Co mmon 00:00:00 00:00:00 VISIT [facility] PT - CHI LEVEL 4 [facility] 2021-02-10 2021-02-10 Outpatient STLMLC STLMLC [id number] Common 00:00:00 00:00:00 [facility] 2021-01-31 2021-01-31 Outpatient STLMLC STLMLC [id number] Common 00:00:00 00:00:00 [facility] 2021-01-13 2021-01-13 Outpatient STLMLC STLMLC [id number] Common 00:00:00 00:00:00 [facility] 2021-01-08 2021-01-08 Outpatient STLMLC STLMLC [id number] Common 00:00:00 00:00:00 [facility] 2020-12-31 2020-12-31 Outpatient STLMLC STLMLC [id number] Common 00:00:00 00:00:00 [facility] 2020-12-11 2020-12-11 Outpatient STLMLC STLMLC [id number] Common 00:00:00 00:00:00 [facility] 2020-08-19 2020-08-19 Outpatient STLMLC STLMLC [id number] Common 00:00:00 00:00:00 [facility] 2020-07-19 2020-07-19 Outpatient STLMLC STLMLC [id number] Common 00:00:00 00:00:00 [facility] 2020-07-15 2020-07-15 Outpatient STLMLC STLMLC [id number] Common 00:00:00 00:00:00 [facility] 2020-06-14 2020-06-14 Outpatient STLMLC STLMLC [id number] Common 00:00:00 00:00:00 [facility] 2020-06-05 2020-06-05 Outpatient STLMLC STLMLC [id number] Common 00:00:00 00:00:00 [facility] 2020-04-23 2020-04-23 Outpatient STLMLC STLMLC [id number] Common 00:00:00 00:00:00 [facility] 2020-04-22 2020-04-22 Outpatient STLMLC STLMLC [id number] Common 00:00:00 00:00:00 [facility] 2020-04-17 2020-04-17 Outpatient STLMLC STLMLC [id number] Common 00:00:00 00:00:00 [facility] 2020-01-15 2020-01-15 [facility] [id number] Common 10:45:00 10:45:00 [address] [place] [address] [facility] 2019-10-16 2019-10-16 [facility] [id number] Common 13:00:00 13:00:00 [place] [address] [facility] 2019-07-17 2019-07-17 [facility] [id number] Common 13:45:00 13:45:00 [place] [address] [facility] 2019-06-14 2019-06-14 [facility] [id number] Common 11:45:00 11:45:00 [place] [address] [facility] 2019-06-07 2019-06-07 [facility] [id number] Common 11:57:00 11:57:00 [place] [address] [facility] 2019-05-17 2019-05-17 [facility] [id number] Common 11:30:00 11:30:00 [place] [address] [facility] 2019-04-24 2019-04-24 [facility] [id number] Common 14:52:00 14:52:00 [place] [address] [facility] 2019-04-19 2019-04-19 [facility] [id number] Common 14:45:00 14:45:00 [place] [address] [facility] 2019-04-06 2019-04-06 [facility] [id number] Common 08:35:00 08:35:00 [place] [address] [address] [facility] 2019-04-04 2019-04-04 [facility] [id number] Common 08:34:00 08:34:00 [place] [address] [address] [facility] 2019-03-08 2019-03-08 Outpatient Cornelio Lyons [id number] Common 10:57:00 10:57:00 t [place] [facility] 2019-02-20 2019-02-20 Outpatient Cornelio Lyons [id number] Common 14:00:00 14:00:00 t [place] Sp[address] [facility] [address] [facility] Results Test Description Test Time Test Comments Results Result Comments Source COMP. METABOLIC PANEL (92242) 2022-10-31 15:25:34 Test Item Value Reference Range Interpretation Comme nts NA (test code = 3320495574) 136 mmol/L 135-145 K (test code = 6192331374) 4.7 mmol/L 3.5-5.0 CL (test code = 8768773558) 96 mmol/L 98-108 L CO2 TOTAL (test code = 6021372929) 31 mmol/L 23-31 AGAP (test code = 0648641352) 9 2-16 BUN (test code = 6667141490) 26 mg/dL 7-23 H GLUCOSE (test code = 8320737408) 190 mg/dL 70-110 H CREATININE (test code = 2.56 mg/dL 0.60-1.25 H 0741226832) TOTAL BILI (test code = 0.9 mg/dL 0.1-1.0 8489787183) CALCIUM (test code = 8073425169) 9.6 mg/dL 8.6-10.6 T PROTEIN (test code = 6890682979) 6.4 g/dL 6.3-8.2 ALBUMIN (test code = 7678089110) 3.5 g/dL 3.5-5.0 ALK PHOS (test code = 5094533874) 307 U/L 34-122 H ALTv (test code = 1742-6) 27 U/L 5-50 AST(SGOT) (test code = 3694830396) 28 U/L 13-40 eGFR (test code = 3963123647) 24.5 mL/min/1.73m2 MALIK (test code = MALIK) [...] tests). Lab Interpretation (test code = Abnormal 18016-1) [facility] 15[facility]25:34 Test Item Value Reference Range Interpretation Comments LIPASE (test code = 3752346631) 212 U/L 0-220 Lab Interpretation (test code = Normal 56237-6) [facility] [id number] 15:12:12 Test Item Value Reference Range Interpretation Comments WBC (test code = 4.75 See_Comment [Automated 9511-2) message] The sy stem which generated this result transmitted reference range : 4.20 - 10.70 10*3/?L. The reference range was not used to interpret this result as normal/abnormal . RBC (test code = 1.98 See_Comment L [Automated 024-4) message] The sy stem which generated this [...] RDW-SD (test code = 45.4 fL 38.5-51.6 06326-0) RDW-CV (test code = 14.3 % 12.1-15.4 788-0) PLT (test code = 191 See_Comment [Automated 777-3) message] The sy stem which generated this result transmitted reference range : 150 - 328 10*3/ ?L. The reference r samantha was not used to interpret this result as normal/abnormal . MPV (test code = 10.1 fL 9.8-13.0 66360-1) NRBC/100 WBC (test 0.0 See_Comment [Automat ed code = 1723821842) message] The system which generated this result transmitted reference range : 0.0 - 10.0 /100 WBCs. The refer ence range was not u sed to interpret th is result as normal/abnormal . NRBC x10^3 (test code See_Comment [Auto mated = 7112521960) message] The s ystem which generated this result transmitted reference range : 10*3/?L. The reference range was not used to interpret this result as normal/abnormal . GRAN MAT (NEUT) % 62.8 % (test code = 770-8) IMM GRAN % (test code 0.60 % = 5944620741) LYMPH % (test code = 23.2 % 736-9) MONO % (test code = 10.9 % 5905-5) EOS % (test code = 2.3 % 713-8) BASO % (test code = 0.2 % 706-2) GRAN MAT x10^3(ANC) 2.98 10*3/uL 1.99-6.95 (test code = 9565498122) IMM GRAN x10^3 (test 0.03 10*3/uL 0.00-0.06 code = 6840292802) LYMPH x10^3 (test code 1.10 10*3/uL 1.09-3.23 = 731-0) MONO x10^3 (test code 0.52 10*3/uL 0.36-1.02 = 742-7) EOS x10^3 (test code = 0.11 10*3/uL 0.06-0.53 711-2) BASO x10^3 (test code 0.01-0.09 = 704-7) Lab Interpretation Abnormal (test code = 49401-8) [facility] GLUCOSE (AUTOMATED)2022-10-15 16:18:07 Test Item Value Reference Range Interpretation Comments POCT GLU (test code = 1737077938) 131 mg/dL 70-110 H Lab Interpretation (test code = Abnormal 11969-5) [facility] GLUCOSE (AUTOMATED)2022-10-15 12:27:02 Test Item Value Reference Range Interpretation Comments POCT GLU (test code = 7265379022) 220 mg/dL 70-110 H Lab Interpretation (test code = Abnormal 22126-9) [facility] Packed RBC (in units), 2 Units 2022-10-15 05:15:09 Test Item Value Reference Range Interpretation Comments Cross Match Result Compatible (test code = 4409) ISBT Blood Type Code 6200 (test code = 226260) Unit Blood Type (test A Pos code = 4410) Unit Number (test [id number] code = 4411) Blood Expiration Date & Time (test code = 025070) Status Information Released (test code = 4412) Product Red Blood Cells Identification (test code = 4413) Product Code (test [id number] Performed at RUST code = 4414) Laboratory Services - [facility] Blood [address] [place] [id number] Free: [phone] A No. [id number] [facility] GLUCOSE (AUTOMATED)2022-10-15 01:55:15 Test Item Value Reference Range Interpretation Comments POCT GLU (test code = 3263474150) 152 mg/dL 70-110 H Lab Interpretation (test code = Abnormal 78638-2) [facility] B Surface Antibody (HBsAb)2022-10-15 00:05:17 Test Item Value Reference Range Interpretation Comments HBsAB (test code = Negative 1491664052) HBsAb 3.80 mIU/mL Semi-Quantitative (test code = 6469033040) MALIK (test code = Interpretation: MALIK) ?Hepatitis B Surface Antibody ? Negative - Patient is considered to be not immune to infection with HBV. ? ? Positive - Anti-HBs detected at greater than or equal to 12 mIU/mL. ?Patient is considered to be immune to infection with HBV. ? [facility] B Surface Antigen (HBsAg)2022-10-14 23:47:58 Test Item Value Reference Range Interpretation Comments HBsAg Semi-Quantitative (test code = 0.09 Negative 5195-3) [facility] GLUCOSE (AUTOMATED)2022-10-14 21:41:48 Test Item Value Reference Range Interpretation Comments POCT GLU (test code = 0147749183) 118 mg/dL 70-110 H Lab Interpretation (test code = Abnormal 52040-4) [facility] GLUCOSE (AUTOMATED)2022-10-14 16:47:29 Test Item Value Reference Range Interpretation Comments POCT GLU (test code = 8931315995) 132 mg/dL 70-110 H Lab Interpretation (test code = Abnormal 84648-3) [facility] [id number] 14:16:04 Test Item Value Reference Range Interpretation Comments Blood Culture-Aerobic Culture positive. No growth AA P revious (test code = 91071-2) See Blood Culture p reliminary Workup for verified result additional was Culture In information. Progress on 10/10/2022 at 19 01 CDTPrevious preliminary verified result was No growth a t 24 hours on 10/11/2022 at 16 01 CDT Blood No organisms No growth Previous Culture-Anaerobic isolated preliminar y (test code = 26952-0) verifi ed result was Culture In Progress on 10/10/2022 at 19 01 CDTPrevious preliminary verified result was No growth a t 24 hours on 10/11/2022 at 16 01 CDTPrevious preliminary verified result was Culture In Progress on 10/12/2022 at 11 51 CDT Lab Interpretation Abnormal (test code = 22142-4) [facility] [id number] 14:16:04 Test Item Value Reference Range Interpretation Comments Blood Culture-Aerobic Culture positive. No growth AA P revious (test code = 44317-5) See Blood Culture p reliminary Workup for verified result additional was Culture In information. Progress on 10/10/2022 at 19 01 CDTPrevious preliminary verified result was No growth a t 24 hours on 10/11/2022 at 16 01 CDT Blood No organisms No growth Previous Culture-Anaerobic isolated preliminar y (test code = 01164-8) verifi ed result was Culture In Progress on 10/10/2022 at 19 01 CDTPrevious preliminary verified result was No growth a t 24 hours on 10/11/2022 at 16 01 CDT Lab Interpretation Abnormal (test code = 74574-7) [facility] GLUCOSE (AUTOMATED)2022-10-14 12:54:35 Test Item Value Reference Range Interpretation Comments POCT GLU (test code = 0705151856) 221 mg/dL 70-110 H Lab Interpretation (test code = Abnormal 38683-5) [facility] GLUCOSE (AUTOMATED)2022-10-14 03:16:56 Test Item Value Reference Range Interpretation Comments POCT GLU (test code = 6151073347) 129 mg/dL 70-110 H Lab Interpretation (test code = Abnormal 95785-3) [facility] GLUCOSE (AUTOMATED)2022-10-13 21:44:17 Test Item Value Reference Range Interpretation Comments POCT GLU (test code = 8591388096) 95 mg/dL 70-110 Lab Interpretation (test code = Normal 70155-8) [facility] GLUCOSE (AUTOMATED)2022-10-13 16:27:34 Test Item Value Reference Range Interpretation Comments POCT GLU (test code = 6187157946) 167 mg/dL 70-110 H Lab Interpretation (test code = Abnormal 45815-3) [facility] GLUCOSE (AUTOMATED)2022-10-13 12:36:25 Test Item Value Reference Range Interpretation Comments POCT GLU (test code = 0083982370) 169 mg/dL 70-110 H Lab Interpretation (test code = Abnormal 85755-3) [facility] GLUCOSE (AUTOMATED)2022-10-13 01:25:21 Test Item Value Reference Range Interpretation Comments POCT GLU (test code = 8276670676) 142 mg/dL 70-110 H Lab Interpretation (test code = Abnormal 82783-4) [facility] POSITIVE BLO[facility] PATHOGENS DNA [id number] 21:42:17 Test Item Value Reference Range Interpretation Comments Coagulase Negative Positive Negative, See A Staphylococcus (test Comment/Narrative code = 79821-3) MALIK (test code = MALIK) Coagulase negative [...] contact the Antimicrobial Stewardship Program with questions.Pager: ?[phone] Testing included eleven identification and three resistance marker targets. Lab Interpretation Abnormal (test code = 80239-1) [facility]2022-10-12 21:24:15 Test Item Value Reference Range Interpretation Comments POCT GLU (test code = 5178263063) 124 mg/dL 70-110 H Lab Interpretation (test code = Abnormal 75363-0) [facility]wayPrepare Packed RBC (in units), 1 Units 2022-10-12 18:29:53 Test Item Value Reference Range Interpretation Comments Cross Match Result Compatible (test code = 4409) ISBT Blood Type Code 6200 (test code = 441072) Unit Blood Type (test A Pos code = 4410) Unit Number (test [id number] code = 4411) Blood Expiration Date [id number] & Time (test code = 332260) Status Information Issued (test code = 4412) Product Red Blood Cells Identification (test code = 4413) Product Code (test [id number] Performed at RUST code = 4414) Laboratory Services - [facility] Blood [address] [place] [id number] Free: [phone] A No. [id number] [facility]2022-10-12 16:49:16 Test Item Value Reference Range Interpretation Comments POCT GLU (test code = 8542021573) 183 mg/dL 70-110 H Lab Interpretation (test code = Abnormal 70553-9) [facility]way[facility]-TERMIN[facility] [id number] 14:35:54 Test Item Value Reference Range Interpretation Comments NT-proBNP (test code = 90417 pg/mL <=450 H 7598557124) MALIK (test code = MALIK) Biotin has been reported to cause a negative bias, interpret results relative to patient's use of biotin. Lab Interpretation (test Abnormal code = 28817-1) [facility]wayTROPONIN [id number] 14:31:03 Test Item Value Reference Range Interpretation Comments TROPONIN I (test code = 0.296 ng/mL <=0.034 H 4534588109) MALIK (test code = MALIK) Reference (Normal) [...] biotin. Lab Interpretation Abnormal (test code = 24093-4) [facility] LakewayLIPID PANEL (37292)(TOTAL CHOLESTEROL, TRIGLYCERIDES, HDL)2022-10-12 14:05:04 Test Item Value Reference Range Interpretation Comments CHOL (test code = 1144706588) 61 mg/dL 120-200 L HDL (test code = 5618879093) 19 mg/dL >=40 L HDLC RATIO (test code = 7939917690) 3.2 <=5.0 TRIG (test code = 0997051897) 82 mg/dL 30-170 LDL CHOL (test code = 57114-8) 26 mg/dL <=160 VLDL (test code = 3788580782) 16 mg/dL 5-60 Lab Interpretation (test code = Abnormal 72316-2) [facility] GLU[facility]SE [facility]AUTOMATED)2022-10-12 12:46:09 Test Item Value Reference Range Interpretation Comments POCT GLU (test code = 1412736980) 139 mg/dL 70-110 H Lab Interpretation (test code = Abnormal 60085-2) [facility] METABOLIC PANEL (NA, K, CL, CO2, GLUCOSE, BUN, CREATININE, CA)2022-10-12 11:04:31 Test Item Value Reference Range Interpretation Comments NA (test code = 136 mmol/L 135-145 7133496458) K (test code = 4.9 mmol/L 3.5-5.0 9912607993) CL (test code = 99 mmol/L 98-108 2786245335) CO2 TOTAL (test code = 27 mmol/L 23-31 5877741948) AGAP (test code = 10 2-16 4907982938) BUN (test code = 54 mg/dL 7-23 H 4732190271) GLUCOSE (test code = 136 mg/dL 70-110 H 3375477926) CREATININE (test code = 4.66 mg/dL 0.60-1.25 H 9727485526) CALCIUM (test code = 9.0 mg/dL 8.6-10.6 6918929398) eGFR (test code = 12.3 mL/min/1.73m2 4613411864) MALIK (test code = MALIK) Association of [...] tests). Lab Interpretation Abnormal (test code = 27893-5) [facility]wayMAGNESIUM2023-05-15 11:04:31 Test Item Value Reference Range Interpretation Comments MAGNESIUM (test code = 0468515352) 1.9 mg/dL 1.7-2.4 Lab Interpretation (test code = Normal 98903-4) [facility]wayPHOSPHORUS2023-05-15 11:04:11 Test Item Value Reference Range Interpretation Comments PHOSPHORUS (test code = 5863713301) 3.8 mg/dL 2.5-5.0 Lab Interpretation (test code = Normal 90933-3) [facility] LakewayCBC WITH [id number] 10:44:53 Test Item Value Reference Range Interpretation Comments WBC (test code = 5.14 See_Comment [Automated 8790-2) message] The sy stem which generated this result transmitted reference range : 4.20 - 10.70 10*3/?L. The reference range was not used to interpret this result as normal/abnormal . RBC (test code = 2.26 See_Comment L [Automated 279-8) message] The sy stem which generated this [...] RDW-SD (test code = 46.5 fL 38.5-51.6 57385-2) RDW-CV (test code = 14.5 % 12.1-15.4 788-0) PLT (test code = 129 See_Comment L [Automated 777-3) message] The sy stem which generated this result transmitted reference range : 150 - 328 10*3/ ?L. The reference r samantha was not used to interpret this result as normal/abnormal . MPV (test code = 9.7 fL 9.8-13.0 L 89033-4) NRBC/100 WBC (test 0.0 See_Comment [Automat ed code = 6922700695) message] The system which generated this result transmitted reference range : 0.0 - 10.0 /100 WBCs. The refer ence range was not u sed to interpret th is result as normal/abnormal . NRBC x10^3 (test code See_Comment [Auto mated = 4488684889) message] The s ystem which generated this result transmitted reference range : 10*3/?L. The reference range was not used to interpret this result as normal/abnormal . GRAN MAT (NEUT) % 70.2 % (test code = 770-8) IMM GRAN % (test code 0.40 % = 0322517018) LYMPH % (test code = 19.3 % 736-9) MONO % (test code = 7.4 % 5905-5) EOS % (test code = 2.3 % 713-8) BASO % (test code = 0.4 % 706-2) GRAN MAT x10^3(ANC) 3.61 10*3/uL 1.99-6.95 (test code = 5980011858) IMM GRAN x10^3 (test 0.00-0.06 code = 6608102447) LYMPH x10^3 (test code 0.99 10*3/uL 1.09-3.23 L = 731-0) MONO x10^3 (test code 0.38 10*3/uL 0.36-1.02 = 742-7) EOS x10^3 (test code = 0.12 10*3/uL 0.06-0.53 711-2) BASO x10^3 (test code 0.01-0.09 = 704-7) Lab Interpretation Abnormal (test code = 84978-5) [facility] GLUCOSE (AUTOMATED)2022-10-12 06:45:05 Test Item Value Reference Range Interpretation Comments POCT GLU (test code = 1466176951) 189 mg/dL 70-110 H Lab Interpretation (test code = Abnormal 62231-3) [facility] GLUCOSE (AUTOMATED)2022-10-12 01:24:37 Test Item Value Reference Range Interpretation Comments POCT GLU (test code = 9937436218) 145 mg/dL 70-110 H Lab Interpretation (test code = Abnormal 84645-8) [facility] GLUCOSE (AUTOMATED)2022-10-11 21:34:09 Test Item Value Reference Range Interpretation Comments POCT GLU (test code = 2563397390) 140 mg/dL 70-110 H Lab Interpretation (test code = Abnormal 55176-8) [facility] GLUCOSE (AUTOMATED)2022-10-11 17:09:13 Test Item Value Reference Range Interpretation Comments POCT GLU (test code = 6334875567) 174 mg/dL 70-110 H Lab Interpretation (test code = Abnormal 91638-2) [facility] GLUCOSE (AUTOMATED)2022-10-11 16:19:41 Test Item Value Reference Range Interpretation Comments POCT GLU (test code = 5206386126) 170 mg/dL 70-110 H Lab Interpretation (test code = Abnormal 54772-1) [facility] GLUCOSE (AUTOMATED)2022-10-11 14:32:59 Test Item Value Reference Range Interpretation Comments POCT GLU (test code = 1988367417) 151 mg/dL 70-110 H Lab Interpretation (test code = Abnormal 27024-4) [facility] GLUCOSE (AUTOMATED)2022-10-11 13:15:13 Test Item Value Reference Range Interpretation Comments POCT GLU (test code = 9395192609) 108 mg/dL 70-110 Lab Interpretation (test code = Normal 90226-2) [facility] 12:14:37 Test Item Value Reference Range Interpretation Comments POCT GLU (test code = 3731431371) 106 mg/dL 70-110 Lab Interpretation (test code = Normal 21904-3) [facility] GLUCOSE (AUTOMATED)2022-10-11 11:28:53 Test Item Value Reference Range Interpretation Comments POCT GLU (test code = 0705123096) 121 mg/dL 70-110 H Lab Interpretation (test code = Abnormal 57199-2) [facility] GLUCOSE (AUTOMATED)2022-10-11 09:43:44 Test Item Value Reference Range Interpretation Comments POCT GLU (test code = 4995766532) 129 mg/dL 70-110 H Lab Interpretation (test code = Abnormal 91321-0) [facility] GLUCOSE (AUTOMATED)2022-10-11 08:46:38 Test Item Value Reference Range Interpretation Comments POCT GLU (test code = 5949696331) 101 mg/dL 70-110 Lab Interpretation (test code = Normal 53476-2) [facility] 07:38:35 Test Item Value Reference Range Interpretation Comments POCT GLU (test code = 0725321138) 102 mg/dL 70-110 Lab Interpretation (test code = Normal 84032-1) [facility]11 06:20:36 Test Item Value Reference Range Interpretation Comments POCT GLU (test code = 7891648213) 112 mg/dL 70-110 H Lab Interpretation (test code = Abnormal 25223-0) [facility]2022-10-11 05:53:46 Test Item Value Reference Range Interpretation Comments POCT GLU (test code = 3044378518) 118 mg/dL 70-110 H Lab Interpretation (test code = Abnormal 72350-9) [facility] GLUCOSE (AUTOMATED)2022-10-11 04:25:32 Test Item Value Reference Range Interpretation Comments POCT GLU (test code = 1159955902) 127 mg/dL 70-110 H Lab Interpretation (test code = Abnormal 99671-2) [facility] GLUCOSE (AUTOMATED)2022-10-11 03:35:04 Test Item Value Reference Range Interpretation Comments POCT GLU (test code = 5205809588) 132 mg/dL 70-110 H Lab Interpretation (test code = Abnormal 89122-8) [facility] GLUCOSE (AUTOMATED)2022-10-11 02:10:18 Test Item Value Reference Range Interpretation Comments POCT GLU (test code = 7878258947) 155 mg/dL 70-110 H Lab Interpretation (test code = Abnormal 44388-4) [facility]wayGLYCOSYLATED HEMOGLOBIN (A1C)2022-10-11 01:39:22 Test Item Value Reference Range Interpretation Comments HGB A1C (test code = 7.2 % 4.0-5.7 H 4548-4) MALIK (test code = MALIK) Reference RangesNormal: <5.7%Prediabetes: 5.7 - 6.4%Diabetes: > 6.5% Lab Interpretation (test Abnormal code = 30278-6) [facility] GLUCOSE (AUTOMATED)2022-10-11 01:10:41 Test Item Value Reference Range Interpretation Comments POCT GLU (test code = 0446802067) 156 mg/dL 70-110 H Lab Interpretation (test code = Abnormal 06323-4) [facility] GLUCOSE (AUTOMATED)2022-10-10 23:31:02 Test Item Value Reference Range Interpretation Comments POCT GLU (test code = 0115080658) 144 mg/dL 70-110 H Lab Interpretation (test code = Abnormal 10938-6) [facility] GLUCOSE (AUTOMATED)2022-10-10 21:44:27 Test Item Value Reference Range Interpretation Comments POCT GLU (test code = 7232019509) 138 mg/dL 70-110 H Lab Interpretation (test code = Abnormal 68961-2) [facility] GLUCOSE (AUTOMATED)2022-10-10 21:27:07 Test Item Value Reference Range Interpretation Comments POCT GLU (test code = 2234071733) 150 mg/dL 70-110 H Lab Interpretation (test code = Abnormal 78464-8) [facility]wayAC PANEL 21 + LACTIC [id number] 21:01:36 Test Item Value Reference Range Interpretation Comments PH (test code = 7.31 7.32-7.42 L 4950434659) PCO2 LORENA (test code = 55 See_Comment H [Auto mated 3111812834) message] The sy stem which generated this result transmitted reference range : 41 - 51 mmHg. The reference range was not used to interpret this result as normal/abnormal . PO2 LORENA (test code = 16 See_Comment L [Autom ated 6099023845) message] The sy stem which generated this result transmitted reference range : 25 - 40 mmHg. The reference range was not used to interpret this result as normal/abnormal . HCO3 LORENA (test code = 27 See_Comment [Auto mated 4504501226) message] The sy stem which generated this result transmitted reference range : 24 - 28 mEq/L. The reference range was not used to interpret this result as normal/abnormal . AC VBE(BEAKER) (test 0.6 mEq/L code = 6798056090) THB LORENA (test code = 8.2 g/dL 13.5-18.0 LL 2134101414) %O2HB LORENA (test code = 22.2 % 52.0-63.0 L 9790364264) %COHB LORENA (test code = 0.1 % 0.0-1.5 7407682460) %METHB LORENA (test code = 1.5 % 0.4-1.5 7609896621) VOL%O2 LORENA (test code = 2.6 % 6.0-12.0 L 3731270925) NA (test code = 132 mmol/L 135-145 L 6531907853) K+ (test code = 4.7 mmol/L 3.5-5.0 3756755006) AC CA IONZ (test code = 5.10 mg/dL 4.50-5.30 8060270477) GLUCOSE (test code = 153 mg/dL 70-110 H 4628622238) LACTIC ACID (test code 1.54 mmol/L 0.50-2.20 = 9597516461) Lab Interpretation Abnormal (test code = 78308-2) [facility] GLUCOSE (AUTOMATED)2022-10-10 20:33:33 Test Item Value Reference Range Interpretation Comments POCT GLU (test code = 6549264692) 137 mg/dL 70-110 H Lab Interpretation (test code = Abnormal 98455-7) [facility]way[facility] [id number] 20:24:02 Test Item Value Reference Range Interpretation Comments NT-proBNP (test code = 80906 pg/mL <=450 H 9178120047) MALIK (test code = MALIK) Biotin has been reported to cause a negative bias, interpret results relative to patient's use of biotin. Lab Interpretation (test Abnormal code = 05501-6) [facility]wayCOMP. METABOLIC PANEL (55152)2022-10-10 20:18:35 Test Item Value Reference Range Interpretation Comments NA (test code = 136 mmol/L 135-145 5103994132) K (test code = 4.8 mmol/L 3.5-5.0 2572008531) CL (test code = 94 mmol/L 98-108 L 0980111985) CO2 TOTAL (test code = 33 mmol/L 23-31 H 9042018690) AGAP (test code = 9 2-16 6384948595) BUN (test code = 34 mg/dL 7-23 H 7433964684) GLUCOSE (test code = 62 mg/dL 70-110 L 6722235739) CREATININE (test code = 3.14 mg/dL 0.60-1.25 H 5069703379) TOTAL BILI (test code = 0.9 mg/dL 0.1-1.3 2066056108) CALCIUM (test code = 9.4 mg/dL 8.6-10.6 8503396603) T PROTEIN (test code = 6.6 g/dL 6.3-8.2 5400979210) ALBUMIN (test code = 3.6 g/dL 3.5-5.0 5270683453) ALK PHOS (test code = 334 U/L 34-122 H 2575685610) ALTv (test code = 38 U/L 5-50 1742-6) AST(SGOT) (test code = 38 U/L 13-40 3915346127) eGFR (test code = 19.3 mL/min/1.73m2 1811127070) MALIK (test code = MALIK) Association of [...] tests). Lab Interpretation Abnormal (test code = 27033-3) [facility]2022-10-10 19:48:15 Test Item Value Reference Range Interpretation Comments POCT GLU (test code = 4939001010) 50 mg/dL 70-110 LL Lab Interpretation (test code = Abnormal 06048-6) [facility]wayTROPONIN [id number] 19:44:14 Test Item Value Reference Range Interpretation Comments TROPONIN I (test code = 0.060 ng/mL <=0.034 H 7953134034) MALIK (test code = MALIK) Reference (Normal) [...] biotin. Lab Interpretation Abnormal (test code = 07030-4) [facility] WITH [id number] 19:23:50 Test Item Value Reference Range Interpretation Comments WBC (test code = 7.51 See_Comment [Automated 6690-2) message] The sy stem which generated this result transmitted reference range : 4.20 - 10.70 10*3/?L. The reference range was not used to interpret this result as normal/abnormal . RBC (test code = 2.71 See_Comment L [Automated 789-8) message] The sy [...] RDW-SD (test code = 46.5 fL 38.5-51.6 28909-7) RDW-CV (test code = 14.4 % 12.1-15.4 788-0) PLT (test code = 131 See_Comment L [Automated 777-3) message] The sy stem which generated this result transmitted reference range : 150 - 328 10*3/ ?L. The reference r samantha was not used to interpret this result as normal/abnormal . MPV (test code = 9.2 fL 9.8-13.0 L 97511-3) NRBC/100 WBC (test 0.0 See_Comment [Automat ed code = 7157902366) message] The system which generated this result transmitted reference range : 0.0 - 10.0 /100 WBCs. The refer ence range was not u sed to interpret th is result as normal/abnormal . NRBC x10^3 (test code See_Comment [Auto mated = 4927085198) message] The s ystem which generated this result transmitted reference range : 10*3/?L. The reference range was not used to interpret this result as normal/abnormal . GRAN MAT (NEUT) % 80.2 % (test code = 770-8) IMM GRAN % (test code 0.50 % = 0907877752) LYMPH % (test code = 9.6 % 736-9) MONO % (test code = 8.8 % 5905-5) EOS % (test code = 0.4 % 713-8) BASO % (test code = 0.5 % 706-2) GRAN MAT x10^3(ANC) 6.02 10*3/uL 1.99-6.95 (test code = 8579984943) IMM GRAN x10^3 (test 0.04 10*3/uL 0.00-0.06 code = 8319710632) LYMPH x10^3 (test code 0.72 10*3/uL 1.09-3.23 L = 731-0) MONO x10^3 (test code 0.66 10*3/uL 0.36-1.02 = 742-7) EOS x10^3 (test code = 0.03 10*3/uL 0.06-0.53 L 711-2) BASO x10^3 (test code 0.04 10*3/uL 0.01-0.09 = 704-7) Lab Interpretation Abnormal (test code = 88066-3) [facility]2022-10-10 18:59:49 Test Item Value Reference Range Interpretation Comments POCT GLU (test code = 3941621984) 80 mg/dL 70-110 Lab Interpretation (test code = Normal 91186-6) [facility] [id number] 18:35:00 Test Item Value Reference Range Interpretation Comments ABO/Rh (test code = ABO/Rh) AB POS [facility] [id number] 18:35:00 Test Item Value Reference Range Interpretation Comments Antibody Scrn (test Negative (01/02/22 1:35 code = Antibody Scrn) PM) [facility] [employer] [id number] 18:35:00 Test Item Value Reference Range Interpretation Comments ABO/Rh (test code = ABO/Rh) AB POS [facility] Natanael Ulien [id number] 18:35:00 Test Item Value Reference Range Interpretation Comments Antibody Scrn (test Negative (01/02/22 1:35 code = Antibody Scrn) PM) [facility] Natanael Ulien [id number] 18:35:00 Test Item Value Reference Range Interpretation Comments ABO/Rh (test code = ABO/Rh) AB POS [facility]PaxVaxWO[facility] Natanael Ulien [id number] 18:35:00 Test Item Value Reference Range Interpretation Comments Antibody Scrn (test Negative (01/02/22 1:35 code = Antibody Scrn) PM) [facility] [id number] 18:35:00 Test Item Value Reference Range Interpretation Comments ABO/Rh (test code = ABO/Rh) AB POS [facility] [id number] 18:35:00 Test Item Value Reference Range Interpretation Comments Antibody Scrn (test Negative (01/02/22 1:35 code = Antibody Scrn) PM) [facility] [employer] [id number] 18:35:00 Test Item Value Reference Range Interpretation Comments ABO/Rh (test code = ABO/Rh) AB POS [facility] Natanael Ulien [id number] 18:35:00 Test Item Value Reference Range Interpretation Comments Antibody Scrn (test Negative (01/02/22 1:35 code = Antibody Scrn) PM) [facility] CenterGufprmtIBCAQJILMG9132-13-53 18:13:00 Test Item Value Reference Range Interpretation Comments Anisocyte (test code = 2+ *ABN*(01/02/22 1:13 Anisocyte) PM) [facility] CenterHeefcmbGRYSZNXDJA6539-43-11 18:13:00 Test Item Value Reference Range Interpretation Comments Macrocyte (test code = 2+ *ABN*(01/02/22 1:13 Macrocyte) PM) [facility] [employer] [id number] 18:13:00 Test Item Value Reference Range Interpretation Comments ALT (test code = ALT) 36 See_Comment [Auto mated message] The system which ge nerated this result transmit swathi reference range : <=65. The reference range was not used to interpr et this result as deny l/abnormal. [place] [address]-08-05 18:13:00 Test Item Value Reference Range Interpretation Comments AST (test code = AST) 28 See_Comment [Auto mated message] The system which ge nerated this result transmit swathi reference range : <=37. The reference range was not used to interpr et this result as deny l/abnormal. [place] [address]-08-05 18:13:00 Test Item Value Reference Range Interpretation Comments Alk Phos (test code = Alk Phos) 231 39-136 [place] [address]-08-05 18:13:00 Test Item Value Reference Range Interpretation Comments Bili Total (test code = Bili Total) 1.0 0.2-1.[address]08-05 18:13:00 Test Item Value Reference Range Interpretation Comments AGAP (test code = AGAP) 11.4 10.0-20.0 [address]08-05 18:13:00 Test Item Value Reference Range Interpretation Comments B/C Ratio (test code = B/C Ratio) 8 1 6-[address]08-05 18:13:00 Test Item Value Reference Range Interpretation Comments Globulin (test code = Globulin) 3.5 2.7-4.2 [place] [address]-08-05 18:13:00 Test Item Value Reference Range Interpretation Comments A/G Ratio (test code = A/G Ratio) 0.9 1 0.7-1.6 [address]08-05 18:13:00 Test Item Value Reference Range Interpretation Comments eGFR (test code = eGFR) 9 [place] [address]-08-05 18:13:00 Test Item Value Reference Range Interpretation Comments WBC (test code = WBC) 4.8 3.7-10.4 [place] [address]-08-05 18:13:00 Test Item Value Reference Range Interpretation Comments RBC (test code = RBC) 1.93 4.70-6.10 [place] [address]-08-05 18:13:00 Test Item Value Reference Range Interpretation Comments Hgb (test code = Hgb) 7.2 14.0-18.0 [place] [address]-08-05 18:13:00 Test Item Value Reference Range Interpretation Comments Hct (test code = Hct) 21.2 42.0-54.0 [place] [address]-08-05 18:13:00 Test Item Value Reference Range Interpretation Comments MCV (test code = MCV) 110.1 80.0-94.0 [place] [address]-08-05 18:13:00 Test Item Value Reference Range Interpretation Comments MCH (test code = MCH) 37.1 pg 27.0-31.0 [place] [address]-08-05 18:13:00 Test Item Value Reference Range Interpretation Comments MCHC (test code = MCHC) 33.7 32.0-36.0 [place] 768472-08-05 18:13:00 Test Item Value Reference Range Interpretation Comments RDW (test code = RDW) 25.8 11.5-14.5 [place] [address]-08-05 18:13:00 Test Item Value Reference Range Interpretation Comments Platelet (test code = Platelet) 216 133-450 [facility] CenterNwhuhowDLLJHIYNFO5180-77-20 18:13:00 Test Item Value Reference Range Interpretation Comments MPV (test code = MPV) 8.2 7.4-10.4 [place] [address]-08-05 18:13:00 Test Item Value Reference Range Interpretation Comments PT (test code = PT) 16.9 s 12.0-14.7 [place] [address]-08-05 18:13:00 Test Item Value Reference Range Interpretation Comments INR (test code = INR) 1.39 1 0.85-1.17 [place] [address]-08-05 18:13:00 Test Item Value Reference Range Interpretation Comments PTT (test code = PTT) 35.0 s 22.9-35.8 [place] [address]-08-05 18:13:00 Test Item Value Reference Range Interpretation Comments Plt Morph (test code = Normal (01/02/22 1:13 PM) Plt Morph) [place] [address]-08-05 18:13:00 Test Item Value Reference Range Interpretation Comments Segs (test code = Segs) 76.4 45.0-75.0 [place] 768472-08-05 18:13:00 Test Item Value Reference Range Interpretation Comments Lymphocytes (test code = Lymphocytes) 14.6 20.0-40.0 [facility] CenterWiasbtwRSZZQORNRM7266-34-17 18:13:00 Test Item Value Reference Range Interpretation Comments Monocytes (test code = Monocytes) 7.5 2.0-12.0 [facility] CenterKzoyrgrJJKTQEXHJE0576-10-89 18:13:00 Test Item Value Reference Range Interpretation Comments Eosinophils (test code = 0.6 See_Comment [A utomated message] The Eosinophils) system which ge nerated this result tra nsmitted reference range : <=4.0. The reference r samantha was not used to int erpret this result as normal/abnormal . [facility] CenterNmmzscaYUYGBGXLTJ5923-88-64 18:13:00 Test Item Value Reference Range Interpretation Comments Basophils (test code = 0.9 See_Comment [Aut omated message] The Basophils) system which ge nerated this result tra nsmitted reference range : <=1.0. The reference r samantha was not used to int erpret this result as normal/abnormal . [facility] CenterPsfsaftTJBAFZIZKC4306-11-87 18:13:00 Test Item Value Reference Range Interpretation Comments Neutrophils # (test code = Neutrophils 3.7 1.5-8.1 #) [facility] CenterDweitnfREJUVGDFPO5510-83-60 18:13:00 Test Item Value Reference Range Interpretation Comments Lymphocytes # (test code = Lymphocytes 0.7 1.0-5.5 #) [facility] CenterBaclqgdSHUWUWLCJL7565-83-53 18:13:00 Test Item Value Reference Range Interpretation Comments Monocytes # (test code 0.4 See_Comment [Aut omated message] The = Monocytes #) system which generated this result tra nsmitted reference range : <=0.8. The reference r samantha was not used to int erpret this result as normal/abnormal . [facility] CenterNlbsgrcZHALCXZNQX1469-39-50 18:13:00 Test Item Value Reference Range Interpretation Comments Anisocyte (test code = 2+ *ABN*(01/02/22 1:13 Anisocyte) PM) [facility] CenterCbbvawfGNMLZJRYPI6810-95-58 18:13:00 Test Item Value Reference Range Interpretation Comments Macrocyte (test code = 2+ *ABN*(01/02/22 1:13 Macrocyte) PM) [facility]2022-08-05 18:13:00 Test Item Value Reference Range Interpretation Comments HS Troponin I (test code = HS Troponin 156 I) [facility]2022-08-05 18:13:00 Test Item Value Reference Range Interpretation Comments Glucose Lvl (test code = Glucose Lvl) 237 70-99 [place] 117152-08-05 18:13:00 Test Item Value Reference Range Interpretation Comments BUN (test code = BUN) 46 7-22 [facility]2022-08-05 18:13:00 Test Item Value Reference Range Interpretation Comments Creatinine Lvl (test code = Creatinine 5.92 0.50-1.40 Lvl) [facility]2022-08-05 18:13:00 Test Item Value Reference Range Interpretation Comments Sodium Lvl (test code = Sodium Lvl) 134 135-145 [facility]2022-08-05 18:13:00 Test Item Value Reference Range Interpretation Comments Potassium Lvl (test code = Potassium 4.4 3.5-5.1 Lvl) [facility]2022-08-05 18:13:00 Test Item Value Reference Range Interpretation Comments Chloride Lvl (test code = Chloride Lvl) 98 95-109 [place] 117152-08-05 18:13:00 Test Item Value Reference Range Interpretation Comments CO2 (test code = CO2) 29 24-32 [place] 117152-08-05 18:13:00 Test Item Value Reference Range Interpretation Comments Calcium Lvl (test code = Calcium Lvl) 9.2 8.5-10.5 [place] 117152-08-05 18:13:00 Test Item Value Reference Range Interpretation Comments Total Protein (test code = Total 6.6 6.4-8.4 Protein) [facility]2022-08-05 18:13:00 Test Item Value Reference Range Interpretation Comments Albumin Lvl (test code = Albumin Lvl) 3.1 3.5-5.0 [facility]2022-08-05 18:13:00 Test Item Value Reference Range Interpretation Comments ALT (test code = ALT) 36 See_Comment [Auto mated message] The system which ge nerated this result transmit swathi reference range : <=65. The reference range was not used to interpr et this result as deny l/abnormal. [place] 117152-08-05 18:13:00 Test Item Value Reference Range Interpretation Comments AST (test code = AST) 28 See_Comment [Auto mated message] The system which ge nerated this result transmit swathi reference range : <=37. The reference range was not used to interpr et this result as deny l/abnormal. [place] [address]-08-05 18:13:00 Test Item Value Reference Range Interpretation Comments Alk Phos (test code = Alk Phos) 231 39-136 [place] [address]-08-05 18:13:00 Test Item Value Reference Range Interpretation Comments Bili Total (test code = Bili Total) 1.0 0.2-1.3 [place] [address]-08-05 18:13:00 Test Item Value Reference Range Interpretation Comments AGAP (test code = AGAP) 11.4 10.0-20.0 [address]08-05 18:13:00 Test Item Value Reference Range Interpretation Comments B/C Ratio (test code = B/C Ratio) 8 1 6-25 [address]08-05 18:13:00 Test Item Value Reference Range Interpretation Comments Globulin (test code = Globulin) 3.5 2.7-4.2 [place] [address]-08-05 18:13:00 Test Item Value Reference Range Interpretation Comments A/G Ratio (test code = A/G Ratio) 0.9 1 0.7-1.6 [place] [address]-08-05 18:13:00 Test Item Value Reference Range Interpretation Comments eGFR (test code = eGFR) 9 [place] [address]-08-05 18:13:00 Test Item Value Reference Range Interpretation Comments WBC (test code = WBC) 4.8 3.7-10.4 [place] [address]-08-05 18:13:00 Test Item Value Reference Range Interpretation Comments RBC (test code = RBC) 1.93 4.70-6.10 [place] [address]-08-05 18:13:00 Test Item Value Reference Range Interpretation Comments Hgb (test code = Hgb) 7.2 14.0-18.0 [place] [address]-08-05 18:13:00 Test Item Value Reference Range Interpretation Comments Hct (test code = Hct) 21.2 42.0-54.0 [place] 768472-08-05 18:13:00 Test Item Value Reference Range Interpretation Comments MCV (test code = MCV) 110.1 80.0-94.0 [place] 768472-08-05 18:13:00 Test Item Value Reference Range Interpretation Comments MCH (test code = MCH) 37.1 pg 27.0-31.0 [facility] CenterFyyacuxTFBQKGBAHU3059-96-74 18:13:00 Test Item Value Reference Range Interpretation Comments MCHC (test code = MCHC) 33.7 32.0-36.0 [facility] CenterXyxchdaPZHNVIAQTG0044-60-08 18:13:00 Test Item Value Reference Range Interpretation Comments RDW (test code = RDW) 25.8 11.5-14.5 [place] [address]-08-05 18:13:00 Test Item Value Reference Range Interpretation Comments Platelet (test code = Platelet) 216 133-450 [facility] CenterNqvrrtgDNLKTFSGCL0434-75-45 18:13:00 Test Item Value Reference Range Interpretation Comments MPV (test code = MPV) 8.2 7.4-10.4 [facility] CenterFvkaubpSTDHFGHTWW7368-89-07 18:13:00 Test Item Value Reference Range Interpretation Comments PT (test code = PT) 16.9 s 12.0-14.7 [place] 768472-08-05 18:13:00 Test Item Value Reference Range Interpretation Comments INR (test code = INR) 1.39 1 0.85-1.17 [place] 768472-08-05 18:13:00 Test Item Value Reference Range Interpretation Comments PTT (test code = PTT) 35.0 s 22.9-35.8 [place] [address]-08-05 18:13:00 Test Item Value Reference Range Interpretation Comments Plt Morph (test code = Normal (01/02/22 1:13 PM) Plt Morph) [facility] CenterEujifdlNQWLMGUBJR2232-63-14 18:13:00 Test Item Value Reference Range Interpretation Comments Segs (test code = Segs) 76.4 45.0-75.0 [place] 768472-08-05 18:13:00 Test Item Value Reference Range Interpretation Comments Lymphocytes (test code = Lymphocytes) 14.6 20.0-40.0 [facility] CenterXjwvhgbUYMOAXQWRS4088-07-20 18:13:00 Test Item Value Reference Range Interpretation Comments Monocytes (test code = Monocytes) 7.5 2.0-12.0 [facility] CenterWxwwugmPRJGHLYMIR1960-80-06 18:13:00 Test Item Value Reference Range Interpretation Comments Eosinophils (test code = 0.6 See_Comment [A utomated message] The Eosinophils) system which ge nerated this result tra nsmitted reference range : <=4.0. The reference r samantha was not used to int erpret this result as normal/abnormal . [facility] CenterKslnguiSNOTNPMSVZ1107-15-96 18:13:00 Test Item Value Reference Range Interpretation Comments Basophils (test code = 0.9 See_Comment [Aut omated message] The Basophils) system which ge nerated this result tra nsmitted reference range : <=1.0. The reference r samantha was not used to int erpret this result as normal/abnormal . [facility] CenterUchcaqhJMCJNRVHZM8872-74-12 18:13:00 Test Item Value Reference Range Interpretation Comments Neutrophils # (test code = Neutrophils 3.7 1.5-8.1 #) [facility] CenterCngpckrXBXZOINNUO2587-31-34 18:13:00 Test Item Value Reference Range Interpretation Comments Lymphocytes # (test code = Lymphocytes 0.7 1.0-5.5 #) [facility] CenterZpsuhvkIUHTBXVUCR8036-73-46 18:13:00 Test Item Value Reference Range Interpretation Comments Monocytes # (test code 0.4 See_Comment [Aut omated message] The = Monocytes #) system which generated this result tra nsmitted reference range : <=0.8. The reference r samantha was not used to int erpret this result as normal/abnormal . [facility] CenterPrvaeabAMGKVDZWIY2085-70-10 18:13:00 Test Item Value Reference Range Interpretation Comments Anisocyte (test code = 2+ *ABN*(01/02/22 1:13 Anisocyte) PM) [facility] CenterXokrnubOIFGIIVVJP9405-32-21 18:13:00 Test Item Value Reference Range Interpretation Comments Macrocyte (test code = 2+ *ABN*(01/02/22 1:13 Macrocyte) PM) [facility]RRVOBCX0154-57-59 18:13:00 Test Item Value Reference Range Interpretation Comments HS Troponin I (test code = HS Troponin 156 I) [place] 117152-08-05 18:13:00 Test Item Value Reference Range Interpretation Comments Glucose Lvl (test code = Glucose Lvl) 237 70-99 [place] 117152-08-05 18:13:00 Test Item Value Reference Range Interpretation Comments BUN (test code = BUN) 46 7-22 [place] [address]-08-05 18:13:00 Test Item Value Reference Range Interpretation Comments Creatinine Lvl (test code = Creatinine 5.92 0.50-1.40 Lvl) [place] [address]-08-05 18:13:00 Test Item Value Reference Range Interpretation Comments Sodium Lvl (test code = Sodium Lvl) 134 135-145 [place] 117152-08-05 18:13:00 Test Item Value Reference Range Interpretation Comments Potassium Lvl (test code = Potassium 4.4 3.5-5.1 Lvl) [place] 117152-08-05 18:13:00 Test Item Value Reference Range Interpretation Comments Chloride Lvl (test code = Chloride Lvl) 98 95-109 [place] [address]-08-05 18:13:00 Test Item Value Reference Range Interpretation Comments CO2 (test code = CO2) 29 24-32 [place] 117152-08-05 18:13:00 Test Item Value Reference Range Interpretation Comments Calcium Lvl (test code = Calcium Lvl) 9.2 8.5-10.5 [place] 117152-08-05 18:13:00 Test Item Value Reference Range Interpretation Comments Total Protein (test code = Total 6.6 6.4-8.4 Protein) [place] [address]-08-05 18:13:00 Test Item Value Reference Range Interpretation Comments Albumin Lvl (test code = Albumin Lvl) 3.1 3.5-5.0 [place] [address]-08-05 18:13:00 Test Item Value Reference Range Interpretation Comments ALT (test code = ALT) 36 See_Comment [Auto mated message] The system which ge nerated this result transmit swathi reference range : <=65. The reference range was not used to interpr et this result as deny l/abnormal. [place] 117152-08-05 18:13:00 Test Item Value Reference Range Interpretation Comments AST (test code = AST) 28 See_Comment [Auto mated message] The system which ge nerated this result transmit swathi reference range : <=37. The reference range was not used to interpr et this result as deny l/abnormal. [facility] [employer] [id number] 18:13:00 Test Item Value Reference Range Interpretation Comments Alk Phos (test code = Alk Phos) 231 39-136 [facility] CenterLagu[facility] [id number] 18:13:00 Test Item Value Reference Range Interpretation Comments Bili Total (test code = Bili Total) 1.0 0.2-1.3 [facility] CampusAble[facility] [id number] 18:13:00 Test Item Value Reference Range Interpretation Comments AGAP (test code = AGAP) 11.4 10.0-20.0 [facility] [id number] 18:13:00 Test Item Value Reference Range Interpretation Comments B/C Ratio (test code = B/C Ratio) 8 1 6-25 [facility] [id number] 18:13:00 Test Item Value Reference Range Interpretation Comments Globulin (test code = Globulin) 3.5 2.7-4.2 [facility] QLKJV0526-70-30 18:13:00 Test Item Value Reference Range Interpretation Comments A/G Ratio (test code = A/G Ratio) 0.9 1 0.7-1.6 [facility] [id number] 18:13:00 Test Item Value Reference Range Interpretation Comments eGFR (test code = eGFR) 9 [facility] CampusEnlhshwEMSBBTHWSV2356-59-78 18:13:00 Test Item Value Reference Range Interpretation Comments WBC (test code = WBC) 4.8 3.7-10.4 [facility] CampusJhcosarRYKHBKULXU5164-40-61 18:13:00 Test Item Value Reference Range Interpretation Comments RBC (test code = RBC) 1.93 4.70-6.10 [facility] CampusMmobgnhFIBVEFVTOE8753-47-90 18:13:00 Test Item Value Reference Range Interpretation Comments Hgb (test code = Hgb) 7.2 14.0-18.0 [facility] CampusYxsqmnrBKUTEVATBY2823-58-35 18:13:00 Test Item Value Reference Range Interpretation Comments Hct (test code = Hct) 21.2 42.0-54.0 [facility] CenterVmeoujvOHQFCKCVBN2108-83-57 18:13:00 Test Item Value Reference Range Interpretation Comments MCV (test code = MCV) 110.1 80.0-94.0 [facility] CenterUtbrqgeLPNUCCDPRE7819-53-35 18:13:00 Test Item Value Reference Range Interpretation Comments MCH (test code = MCH) 37.1 pg 27.0-31.0 [facility] CenterOlslmiePVNVIXGNKG7656-14-63 18:13:00 Test Item Value Reference Range Interpretation Comments MCHC (test code = MCHC) 33.7 32.0-36.0 [facility] CenterAxhdejrTIXIOEBKDY1576-43-39 18:13:00 Test Item Value Reference Range Interpretation Comments RDW (test code = RDW) 25.8 11.5-14.5 [facility] CenterQosvpciREWOKHVBIW0431-15-71 18:13:00 Test Item Value Reference Range Interpretation Comments Platelet (test code = Platelet) 216 133-450 [facility] CenterGiryzlsLNKLPVGPHC8128-25-68 18:13:00 Test Item Value Reference Range Interpretation Comments MPV (test code = MPV) 8.2 7.4-10.4 [facility] CenterNlpnwcvWCHFTPKVAT3830-68-80 18:13:00 Test Item Value Reference Range Interpretation Comments PT (test code = PT) 16.9 s 12.0-14.7 [facility] CenterZuagqrrDYNHLWMKCH7535-56-58 18:13:00 Test Item Value Reference Range Interpretation Comments INR (test code = INR) 1.39 1 0.85-1.17 [place] 768472-08-05 18:13:00 Test Item Value Reference Range Interpretation Comments PTT (test code = PTT) 35.0 s 22.9-35.8 [place] 768472-08-05 18:13:00 Test Item Value Reference Range Interpretation Comments Plt Morph (test code = Normal (01/02/22 1:13 PM) Plt Morph) [facility] CenterVggnpbhSTTTZRRZCH2956-07-59 18:13:00 Test Item Value Reference Range Interpretation Comments Segs (test code = Segs) 76.4 45.0-75.0 [place] 768472-08-05 18:13:00 Test Item Value Reference Range Interpretation Comments Lymphocytes (test code = Lymphocytes) 14.6 20.0-40.0 [facility] CenterPtupkhgGIYYWSGOGE4009-99-31 18:13:00 Test Item Value Reference Range Interpretation Comments Monocytes (test code = Monocytes) 7.5 2.0-12.0 [facility] CenterRsmznfpHHXLGFIURH3903-02-83 18:13:00 Test Item Value Reference Range Interpretation Comments Eosinophils (test code = 0.6 See_Comment [A utomated message] The Eosinophils) system which ge nerated this result tra nsmitted reference range : <=4.0. The reference r samantha was not used to int erpret this result as normal/abnormal . [facility] CenterBdusgbvXGSCDCSWVB8596-44-53 18:13:00 Test Item Value Reference Range Interpretation Comments Basophils (test code = 0.9 See_Comment [Aut omated message] The Basophils) system which ge nerated this result tra nsmitted reference range : <=1.0. The reference r samantha was not used to int erpret this result as normal/abnormal . [facility] CenterJbiedzbRVKTBWCSGB7057-21-37 18:13:00 Test Item Value Reference Range Interpretation Comments Neutrophils # (test code = Neutrophils 3.7 1.5-8.1 #) [facility] CenterGijagmvSBTNFNDWBW8376-80-20 18:13:00 Test Item Value Reference Range Interpretation Comments Lymphocytes # (test code = Lymphocytes 0.7 1.0-5.5 #) [facility] CenterSvnfrevIAZPDDSPHP5692-09-84 18:13:00 Test Item Value Reference Range Interpretation Comments Monocytes # (test code 0.4 See_Comment [Aut omated message] The = Monocytes #) system which generated this result tra nsmitted reference range : <=0.8. The reference r samantha was not used to int erpret this result as normal/abnormal . [facility] CenterVnpszofPSCFFBVFEB4786-26-83 18:13:00 Test Item Value Reference Range Interpretation Comments Anisocyte (test code = 2+ *ABN*(01/02/22 1:13 Anisocyte) PM) [facility] CenterPqofmciLGFQPONROF4025-81-02 18:13:00 Test Item Value Reference Range Interpretation Comments Macrocyte (test code = 2+ *ABN*(01/02/22 1:13 Macrocyte) PM) [facility] CampusCARDICOREWELL HEALTH PENNOCK HOSPITALRSCUPWZ6294-21-57 18:13:00 Test Item Value Reference Range Interpretation Comments HS Troponin I (test code = HS Troponin 156 I) [place] [address]-08-05 18:13:00 Test Item Value Reference Range Interpretation Comments Glucose Lvl (test code = Glucose Lvl) 237 70-99 [place] [address]-08-05 18:13:00 Test Item Value Reference Range Interpretation Comments BUN (test code = BUN) 46 7-22 [place] [address]-08-05 18:13:00 Test Item Value Reference Range Interpretation Comments Creatinine Lvl (test code = Creatinine 5.92 0.50-1.40 Lvl) [place] [address]-08-05 18:13:00 Test Item Value Reference Range Interpretation Comments Sodium Lvl (test code = Sodium Lvl) 134 135-145 [place] 117152-08-05 18:13:00 Test Item Value Reference Range Interpretation Comments Potassium Lvl (test code = Potassium 4.4 3.5-5.1 Lvl) [address]08-05 18:13:00 Test Item Value Reference Range Interpretation Comments Chloride Lvl (test code = Chloride Lvl) 98 95-109 [address]08-05 18:13:00 Test Item Value Reference Range Interpretation Comments CO2 (test code = CO2) 29 24-32 [place] [address]-08-05 18:13:00 Test Item Value Reference Range Interpretation Comments Calcium Lvl (test code = Calcium Lvl) 9.2 8.5-10.5 [place] 117152-08-05 18:13:00 Test Item Value Reference Range Interpretation Comments Total Protein (test code = Total 6.6 6.4-8.4 Protein) [place] 117152-08-05 18:13:00 Test Item Value Reference Range Interpretation Comments Albumin Lvl (test code = Albumin Lvl) 3.1 3.5-5.0 [place] [address]-08-05 18:13:00 Test Item Value Reference Range Interpretation Comments ALT (test code = ALT) 36 See_Comment [Auto mated message] The system which ge nerated this result transmit swathi reference range : <=65. The reference range was not used to interpr et this result as deny l/abnormal. [place] [address]-08-05 18:13:00 Test Item Value Reference Range Interpretation Comments AST (test code = AST) 28 See_Comment [Auto mated message] The system which ge nerated this result transmit swathi reference range : <=37. The reference range was not used to interpr et this result as deny l/abnormal. [facility]2022-08-05 18:13:00 Test Item Value Reference Range Interpretation Comments Alk Phos (test code = Alk Phos) 231 39-136 [place] 117152-08-05 18:13:00 Test Item Value Reference Range Interpretation Comments Bili Total (test code = Bili Total) 1.0 0.2-1.3 [place] 117152-08-05 18:13:00 Test Item Value Reference Range Interpretation Comments AGAP (test code = AGAP) 11.4 10.0-20.0 [place] 117152-08-05 18:13:00 Test Item Value Reference Range Interpretation Comments B/C Ratio (test code = B/C Ratio) 8 1 6-25 [place] [address]-08-05 18:13:00 Test Item Value Reference Range Interpretation Comments Globulin (test code = Globulin) 3.5 2.7-4.2 [place] 117152-08-05 18:13:00 Test Item Value Reference Range Interpretation Comments A/G Ratio (test code = A/G Ratio) 0.9 1 0.7-1.6 [place] [address]-08-05 18:13:00 Test Item Value Reference Range Interpretation Comments eGFR (test code = eGFR) 9 [place] 768472-08-05 18:13:00 Test Item Value Reference Range Interpretation Comments WBC (test code = WBC) 4.8 3.7-10.4 [place] [address]-08-05 18:13:00 Test Item Value Reference Range Interpretation Comments RBC (test code = RBC) 1.93 4.70-6.10 [place] [address]-08-05 18:13:00 Test Item Value Reference Range Interpretation Comments Hgb (test code = Hgb) 7.2 14.0-18.0 [place] [address]-08-05 18:13:00 Test Item Value Reference Range Interpretation Comments Hct (test code = Hct) 21.2 42.0-54.0 [place] [address]-08-05 18:13:00 Test Item Value Reference Range Interpretation Comments MCV (test code = MCV) 110.1 80.0-94.0 [place] 768472-08-05 18:13:00 Test Item Value Reference Range Interpretation Comments MCH (test code = MCH) 37.1 pg 27.0-31.0 [place] 768472-08-05 18:13:00 Test Item Value Reference Range Interpretation Comments MCHC (test code = MCHC) 33.7 32.0-36.0 [place] 768472-08-05 18:13:00 Test Item Value Reference Range Interpretation Comments RDW (test code = RDW) 25.8 11.5-14.5 [place] 768472-08-05 18:13:00 Test Item Value Reference Range Interpretation Comments Platelet (test code = Platelet) 216 133-450 [facility] CenterFotdejgXUAPYYSSZG7899-29-45 18:13:00 Test Item Value Reference Range Interpretation Comments MPV (test code = MPV) 8.2 7.4-10.4 [place] 768472-08-05 18:13:00 Test Item Value Reference Range Interpretation Comments PT (test code = PT) 16.9 s 12.0-14.7 [facility] CenterChzktvcBEOJEAZYND3842-67-27 18:13:00 Test Item Value Reference Range Interpretation Comments INR (test code = INR) 1.39 1 0.85-1.17 [facility] CenterBjycmktGUIKDRFRJE5245-47-51 18:13:00 Test Item Value Reference Range Interpretation Comments PTT (test code = PTT) 35.0 s 22.9-35.8 [facility] CenterQfwkzpuFREOLQKLUH3909-40-52 18:13:00 Test Item Value Reference Range Interpretation Comments Plt Morph (test code = Normal (01/02/22 1:13 PM) Plt Morph) [facility] CenterQwyopaqFKVCCHFINE7093-06-97 18:13:00 Test Item Value Reference Range Interpretation Comments Segs (test code = Segs) 76.4 45.0-75.0 [place] [address]-08-05 18:13:00 Test Item Value Reference Range Interpretation Comments Lymphocytes (test code = Lymphocytes) 14.6 20.0-40.0 [place] 768472-08-05 18:13:00 Test Item Value Reference Range Interpretation Comments Monocytes (test code = Monocytes) 7.5 2.0-12.0 [facility] CenterIbuoywoFQACSYMTWS4016-54-38 18:13:00 Test Item Value Reference Range Interpretation Comments Eosinophils (test code = 0.6 See_Comment [A utomated message] The Eosinophils) system which ge nerated this result tra nsmitted reference range : <=4.0. The reference r samantha was not used to int erpret this result as normal/abnormal . [facility] CenterDpkzkouIRMNPSESNS5043-35-78 18:13:00 Test Item Value Reference Range Interpretation Comments Basophils (test code = 0.9 See_Comment [Aut omated message] The Basophils) system which ge nerated this result tra nsmitted reference range : <=1.0. The reference r samantha was not used to int erpret this result as normal/abnormal . [id number] 18:13:00 Test Item Value Reference Range Interpretation Comments Neutrophils # (test code = Neutrophils 3.7 1.5-8.1 #) [facility] CenterJohwvgaHITMLWDEZB0911-20-08 18:13:00 Test Item Value Reference Range Interpretation Comments Lymphocytes # (test code = Lymphocytes 0.7 1.0-5.5 #) [facility] [id number] 18:13:00 Test Item Value Reference Range Interpretation Comments Monocytes # (test code 0.4 See_Comment [Aut omated message] The = Monocytes #) system which generated this result tra nsmitted reference range : <=0.8. The reference r samantha was not used to int erpret this result as normal/abnormal . [facility] CenterStoixtvXDSYASFKRR5108-97-37 18:13:00 Test Item Value Reference Range Interpretation Comments Anisocyte (test code = 2+ *ABN*(01/02/22 1:13 Anisocyte) PM) [facility]AFWPS[facility]OL[facility]99[facility] 18:13:00 Test Item Value Reference Range Interpretation Comments Macrocyte (test code = 2+ *ABN*(01/02/22 1:13 Macrocyte) PM) [facility] [id number] 18:13:00 Test Item Value Reference Range Interpretation Comments HS Troponin I (test code = HS Troponin 156 I) [facility]CHEM [id number] 18:13:00 Test Item Value Reference Range Interpretation Comments Glucose Lvl (test code = Glucose Lvl) 237 70-99 [facility] [id number] 18:13:00 Test Item Value Reference Range Interpretation Comments BUN (test code = BUN) 46 7-22 [facility] [id number] 18:13:00 Test Item Value Reference Range Interpretation Comments Creatinine Lvl (test code = Creatinine 5.92 0.50-1.40 Lvl) [facility] [id number] 18:13:00 Test Item Value Reference Range Interpretation Comments Sodium Lvl (test code = Sodium Lvl) 134 135-145 [facility] [id number] 18:13:00 Test Item Value Reference Range Interpretation Comments Potassium Lvl (test code = Potassium 4.4 3.5-5.1 Lvl) [facility] [id number] 18:13:00 Test Item Value Reference Range Interpretation Comments Chloride Lvl (test code = Chloride Lvl) 98 95-109 [facility] CenterPaxVaxCARDIAC [id number] 18:13:00 Test Item Value Reference Range Interpretation Comments HS Troponin I (test code = HS Troponin 156 I) [facility] [id number] 18:13:00 Test Item Value Reference Range Interpretation Comments Glucose Lvl (test code = Glucose Lvl) 237 70-99 [facility] [id number] 18:13:00 Test Item Value Reference Range Interpretation Comments BUN (test code = BUN) 46 7-22 [facility] [id number] 18:13:00 Test Item Value Reference Range Interpretation Comments Creatinine Lvl (test code = Creatinine 5.92 0.50-1.40 Lvl) [facility] [id number] 18:13:00 Test Item Value Reference Range Interpretation Comments Sodium Lvl (test code = Sodium Lvl) 134 135-145 [facility] [id number] 18:13:00 Test Item Value Reference Range Interpretation Comments Potassium Lvl (test code = Potassium 4.4 3.5-5.1 Lvl) [facility] [id number] 18:13:00 Test Item Value Reference Range Interpretation Comments Chloride Lvl (test code = Chloride Lvl) 98 95-109 [facility] [id number] 18:13:00 Test Item Value Reference Range Interpretation Comments CO2 (test code = CO2) 29 24-32 [facility] [id number] 18:13:00 Test Item Value Reference Range Interpretation Comments Calcium Lvl (test code = Calcium Lvl) 9.2 8.5-10.5 [facility] [id number] 18:13:00 Test Item Value Reference Range Interpretation Comments Total Protein (test code = Total 6.6 6.4-8.4 Protein) [facility] [id number] 18:13:00 Test Item Value Reference Range Interpretation Comments CO2 (test code = CO2) 29 24-32 [facility] [id number] 18:13:00 Test Item Value Reference Range Interpretation Comments Albumin Lvl (test code = Albumin Lvl) 3.1 3.5-5.0 [facility] [id number] 18:13:00 Test Item Value Reference Range Interpretation Comments ALT (test code = ALT) 36 See_Comment [Auto mated message] The system which ge nerated this result transmit swathi reference range : <=65. The reference range was not used to interpr et this result as deny l/abnormal. [facility] [id number] 18:13:00 Test Item Value Reference Range Interpretation Comments AST (test code = AST) 28 See_Comment [Auto mated message] The system which ge nerated this result transmit swathi reference range : <=37. The reference range was not used to interpr et this result as deny l/abnormal. [facility] [id number] 18:13:00 Test Item Value Reference Range Interpretation Comments Alk Phos (test code = Alk Phos) 231 39-136 [facility] [id number] 18:13:00 Test Item Value Reference Range Interpretation Comments Bili Total (test code = Bili Total) 1.0 0.2-1.3 [facility] [id number] 18:13:00 Test Item Value Reference Range Interpretation Comments AGAP (test code = AGAP) 11.4 10.0-20.0 [facility] [id number] 18:13:00 Test Item Value Reference Range Interpretation Comments B/C Ratio (test code = B/C Ratio) 8 1 6-25 [place] [address]-08-05 18:13:00 Test Item Value Reference Range Interpretation Comments Globulin (test code = Globulin) 3.5 2.7-4.2 [place] [address]-08-05 18:13:00 Test Item Value Reference Range Interpretation Comments A/G Ratio (test code = A/G Ratio) 0.9 1 0.7-1.6 [place] [address]-08-05 18:13:00 Test Item Value Reference Range Interpretation Comments eGFR (test code = eGFR) 9 [place] 117152-08-05 18:13:00 Test Item Value Reference Range Interpretation Comments Calcium Lvl (test code = Calcium Lvl) 9.2 8.5-10.5 [place] [address]-08-05 18:13:00 Test Item Value Reference Range Interpretation Comments WBC (test code = WBC) 4.8 3.7-10.4 [place] [address]-08-05 18:13:00 Test Item Value Reference Range Interpretation Comments RBC (test code = RBC) 1.93 4.70-6.10 [place] [address]-08-05 18:13:00 Test Item Value Reference Range Interpretation Comments Hgb (test code = Hgb) 7.2 14.0-18.0 [place] [address]-08-05 18:13:00 Test Item Value Reference Range Interpretation Comments Hct (test code = Hct) 21.2 42.0-54.0 [place] [address]-08-05 18:13:00 Test Item Value Reference Range Interpretation Comments MCV (test code = MCV) 110.1 80.0-94.0 [place] [address]-08-05 18:13:00 Test Item Value Reference Range Interpretation Comments MCH (test code = MCH) 37.1 pg 27.0-31.0 [place] [address]-08-05 18:13:00 Test Item Value Reference Range Interpretation Comments MCHC (test code = MCHC) 33.7 32.0-36.0 [place] [address]-08-05 18:13:00 Test Item Value Reference Range Interpretation Comments RDW (test code = RDW) 25.8 11.5-14.5 [place] [address]-08-05 18:13:00 Test Item Value Reference Range Interpretation Comments Platelet (test code = Platelet) 216 133-450 [place] [address]-08-05 18:13:00 Test Item Value Reference Range Interpretation Comments MPV (test code = MPV) 8.2 7.4-10.4 [facility]2022-08-05 18:13:00 Test Item Value Reference Range Interpretation Comments Total Protein (test code = Total 6.6 6.4-8.4 Protein) [place] [address]-08-05 18:13:00 Test Item Value Reference Range Interpretation Comments PT (test code = PT) 16.9 s 12.0-14.7 [address]08-05 18:13:00 Test Item Value Reference Range Interpretation Comments INR (test code = INR) 1.39 1 0.85-1.17 [place] [address]-08-05 18:13:00 Test Item Value Reference Range Interpretation Comments PTT (test code = PTT) 35.0 s 22.9-35.8 [place] [address]-08-05 18:13:00 Test Item Value Reference Range Interpretation Comments Plt Morph (test code = Normal (01/02/22 1:13 PM) Plt Morph) [address]08-05 18:13:00 Test Item Value Reference Range Interpretation Comments Segs (test code = Segs) 76.4 45.0-75.0 [place] [address]-08-05 18:13:00 Test Item Value Reference Range Interpretation Comments Lymphocytes (test code = Lymphocytes) 14.6 20.0-40.0 [place] [address]-08-05 18:13:00 Test Item Value Reference Range Interpretation Comments Monocytes (test code = Monocytes) 7.5 2.0-12.0 [place] [address]-08-05 18:13:00 Test Item Value Reference Range Interpretation Comments Eosinophils (test code = 0.6 See_Comment [A utomated message] The Eosinophils) system which ge nerated this result tra nsmitted reference range : <=4.0. The reference r samantha was not used to int erpret this result as normal/abnormal . [place] [address]-08-05 18:13:00 Test Item Value Reference Range Interpretation Comments Basophils (test code = 0.9 See_Comment [Aut omated message] The Basophils) system which ge nerated this result tra nsmitted reference range : <=1.0. The reference r samantha was not used to int erpret this result as normal/abnormal . [place] [address]-08-05 18:13:00 Test Item Value Reference Range Interpretation Comments Neutrophils # (test code = Neutrophils 3.7 1.5-8.1 #) [place] 117152-08-05 18:13:00 Test Item Value Reference Range Interpretation Comments Albumin Lvl (test code = Albumin Lvl) 3.1 3.5-5.0 [place] 768472-08-05 18:13:00 Test Item Value Reference Range Interpretation Comments Lymphocytes # (test code = Lymphocytes 0.7 1.0-5.5 #) [place] [address]-08-05 18:13:00 Test Item Value Reference Range Interpretation Comments Monocytes # (test code 0.4 See_Comment [Aut omated message] The = Monocytes #) system which generated this result tra nsmitted reference range : <=0.8. The reference r samantha was not used to int erpret this result as normal/abnormal . [facility]2022-07-19 09:29:00 Test Item Value Reference Range Interpretation Comments Glucose Lvl (test code = Glucose Lvl) 199 70-99 [place] 117152-07-19 09:29:00 Test Item Value Reference Range Interpretation Comments BUN (test code = BUN) 28 7-22 [place] [address]-07-19 09:29:00 Test Item Value Reference Range Interpretation Comments Creatinine Lvl (test code = Creatinine 4.84 0.50-1.40 Lvl) [place] 117152-07-19 09:29:00 Test Item Value Reference Range Interpretation Comments Sodium Lvl (test code = Sodium Lvl) 134 135-145 [place] 117152-07-19 09:29:00 Test Item Value Reference Range Interpretation Comments Potassium Lvl (test code = Potassium 4.3 3.5-5.1 Lvl) [place] 117152-07-19 09:29:00 Test Item Value Reference Range Interpretation Comments Chloride Lvl (test code = Chloride Lvl) 100 95-109 [facility]PaxVaxAD[facility] [id number] 09:29:00 Test Item Value Reference Range Interpretation Comments CO2 (test code = CO2) 28 24-32 [place] 117152-07-19 09:29:00 Test Item Value Reference Range Interpretation Comments Calcium Lvl (test code = Calcium Lvl) 9.4 8.5-10.5 [facility]PaxVaxAD[facility] [id number] 09:29:00 Test Item Value Reference Range Interpretation Comments Total Protein (test code = Total 6.6 6.4-8.4 Protein) [place] 117152-07-19 09:29:00 Test Item Value Reference Range Interpretation Comments Albumin Lvl (test code = Albumin Lvl) 3.0 3.5-5.0 [facility]PaxVaxAD[facility] [id number] 09:29:00 Test Item Value Reference Range Interpretation Comments ALT (test code = ALT) 92 See_Comment [Auto mated message] The system which ge nerated this result transmit swathi reference range : <=65. The reference range was not used to interpr et this result as deny l/abnormal. [facility] [id number] 09:29:00 Test Item Value Reference Range Interpretation Comments AST (test code = AST) 123 See_Comment [Auto mated message] The system which ge nerated this result transmit swathi reference range : <=37. The reference range was not used to interpr et this result as deny l/abnormal. [facility] [id number] 09:29:00 Test Item Value Reference Range Interpretation Comments Alk Phos (test code = Alk Phos) 272 39-136 [facility] [id number] 09:29:00 Test Item Value Reference Range Interpretation Comments Bili Total (test code = Bili Total) 0.9 0.2-1.3 [facility] [id number] 09:29:00 Test Item Value Reference Range Interpretation Comments AGAP (test code = AGAP) 10.3 10.0-20.0 [facility] [id number] 09:29:00 Test Item Value Reference Range Interpretation Comments B/C Ratio (test code = B/C Ratio) 6 1 6-25 [facility]2022-07-19 09:29:00 Test Item Value Reference Range Interpretation Comments Globulin (test code = Globulin) 3.6 2.7-4.2 [place] 117152-07-19 09:29:00 Test Item Value Reference Range Interpretation Comments A/G Ratio (test code = A/G Ratio) 0.8 1 0.7-1.6 [place] 117152-07-19 09:29:00 Test Item Value Reference Range Interpretation Comments eGFR (test code = eGFR) 12 [facility]2022-07-19 09:29:00 Test Item Value Reference Range Interpretation Comments Phosphorus (test code = Phosphorus) 4.3 2.5-4.5 [place] 768472-07-19 09:29:00 Test Item Value Reference Range Interpretation Comments WBC (test code = WBC) 4.7 3.7-10.4 [place] 768472-07-19 09:29:00 Test Item Value Reference Range Interpretation Comments RBC (test code = RBC) 2.14 4.70-6.10 [place] 768472-07-19 09:29:00 Test Item Value Reference Range Interpretation Comments Hgb (test code = Hgb) 7.6 14.0-18.0 [place] 768472-07-19 09:29:00 Test Item Value Reference Range Interpretation Comments Hct (test code = Hct) 22.8 42.0-54.0 [place] 768472-07-19 09:29:00 Test Item Value Reference Range Interpretation Comments MCV (test code = MCV) 106.6 80.0-94.0 [place] 768472-07-19 09:29:00 Test Item Value Reference Range Interpretation Comments MCH (test code = MCH) 35.6 pg 27.0-31.0 [place] 768472-07-19 09:29:00 Test Item Value Reference Range Interpretation Comments MCHC (test code = MCHC) 33.4 32.0-36.0 [place] 768472-07-19 09:29:00 Test Item Value Reference Range Interpretation Comments RDW (test code = RDW) 24.3 11.5-14.5 [place] 768472-07-19 09:29:00 Test Item Value Reference Range Interpretation Comments Platelet (test code = Platelet) 148 133-450 [place] 768472-07-19 09:29:00 Test Item Value Reference Range Interpretation Comments MPV (test code = MPV) 8.1 7.4-10.4 [place] 768472-07-19 09:29:00 Test Item Value Reference Range Interpretation Comments D-Dimer (test code = D-Dimer) 3.63 [place] 768472-07-19 09:29:00 Test Item Value Reference Range Interpretation Comments Segs (test code = Segs) 74.8 45.0-75.0 [place] 768472-07-19 09:29:00 Test Item Value Reference Range Interpretation Comments Lymphocytes (test code = Lymphocytes) 15.5 20.0-40.0 [place] 768472-07-19 09:29:00 Test Item Value Reference Range Interpretation Comments Monocytes (test code = Monocytes) 9.5 2.0-12.0 [place] 768472-07-19 09:29:00 Test Item Value Reference Range Interpretation Comments Basophils (test code = 0.2 See_Comment [Aut omated message] The Basophils) system which ge nerated this result tra nsmitted reference range : <=1.0. The reference r samantha was not used to int erpret this result as normal/abnormal . [facility] CenterVgawfzkWIPGIFFKNA1425-97-94 09:29:00 Test Item Value Reference Range Interpretation Comments Neutrophils # (test code = Neutrophils 3.5 1.5-8.1 #) [place] 768472-07-19 09:29:00 Test Item Value Reference Range Interpretation Comments Lymphocytes # (test code = Lymphocytes 0.7 1.0-5.5 #) [place] [address]-07-19 09:29:00 Test Item Value Reference Range Interpretation Comments Monocytes # (test code 0.4 See_Comment [Aut omated message] The = Monocytes #) system which generated this result tra nsmitted reference range : <=0.8. The reference r samantha was not used to int erpret this result as normal/abnormal . [place] 768472-07-19 09:29:00 Test Item Value Reference Range Interpretation Comments Macrocyte (test code = 1+ *ABN*(12/16/21 Macrocyte) 4:29 AM) [facility] CampusUgkicfnQUWLBSYVHU8629-85-10 09:29:00 Test Item Value Reference Range Interpretation Comments C-REACTIVE PROTEIN (test code = 19.0 C-REACTIVE PROTEIN) [place] 117152-07-19 09:29:00 Test Item Value Reference Range Interpretation Comments Glucose Lvl (test code = Glucose Lvl) 199 70-99 [place] 117152-07-19 09:29:00 Test Item Value Reference Range Interpretation Comments BUN (test code = BUN) 28 - [place] 117152-07-19 09:29:00 Test Item Value Reference Range Interpretation Comments Creatinine Lvl (test code = Creatinine 4.84 0.50-1.40 Lvl) [place] 117152-07-19 09:29:00 Test Item Value Reference Range Interpretation Comments Sodium Lvl (test code = Sodium Lvl) 134 135-145 [place] 117152-07-19 09:29:00 Test Item Value Reference Range Interpretation Comments Potassium Lvl (test code = Potassium 4.3 3.5-5.1 Lvl) [place] 117152-07-19 09:29:00 Test Item Value Reference Range Interpretation Comments Chloride Lvl (test code = Chloride Lvl) 100 95-109 [place] 117152-07-19 09:29:00 Test Item Value Reference Range Interpretation Comments CO2 (test code = CO2) 28 24-32 [place] 117152-07-19 09:29:00 Test Item Value Reference Range Interpretation Comments Calcium Lvl (test code = Calcium Lvl) 9.4 8.5-10.5 [place] 117152-07-19 09:29:00 Test Item Value Reference Range Interpretation Comments Total Protein (test code = Total 6.6 6.4-8.4 Protein) [place] 117152-07-19 09:29:00 Test Item Value Reference Range Interpretation Comments Albumin Lvl (test code = Albumin Lvl) 3.0 3.5-5.0 [place] 117152-07-19 09:29:00 Test Item Value Reference Range Interpretation Comments ALT (test code = ALT) 92 See_Comment [Auto mated message] The system which ge nerated this result transmit swathi reference range : <=65. The reference range was not used to interpr et this result as deny l/abnormal. [place] 117152-07-19 09:29:00 Test Item Value Reference Range Interpretation Comments Glucose Lvl (test code = Glucose Lvl) 199 70-99 [place] 117152-07-19 09:29:00 Test Item Value Reference Range Interpretation Comments BUN (test code = BUN) 28 7-22 [place] 117152-07-19 09:29:00 Test Item Value Reference Range Interpretation Comments Creatinine Lvl (test code = Creatinine 4.84 0.50-1.40 Lvl) [place] 117152-07-19 09:29:00 Test Item Value Reference Range Interpretation Comments Sodium Lvl (test code = Sodium Lvl) 134 135-145 [facility]2022-07-19 09:29:00 Test Item Value Reference Range Interpretation Comments AST (test code = AST) 123 See_Comment [Auto mated message] The system which ge nerated this result transmit swathi reference range : <=37. The reference range was not used to interpr et this result as deny l/abnormal. [facility]2022-07-19 09:29:00 Test Item Value Reference Range Interpretation Comments Potassium Lvl (test code = Potassium 4.3 3.5-5.1 Lvl) [facility]2022-07-19 09:29:00 Test Item Value Reference Range Interpretation Comments Chloride Lvl (test code = Chloride Lvl) 100 95-109 [place] 117152-07-19 09:29:00 Test Item Value Reference Range Interpretation Comments CO2 (test code = CO2) 28 24-32 [place] 117152-07-19 09:29:00 Test Item Value Reference Range Interpretation Comments Calcium Lvl (test code = Calcium Lvl) 9.4 8.5-10.5 [place] 117152-07-19 09:29:00 Test Item Value Reference Range Interpretation Comments Total Protein (test code = Total 6.6 6.4-8.4 Protein) [place] 117152-07-19 09:29:00 Test Item Value Reference Range Interpretation Comments Albumin Lvl (test code = Albumin Lvl) 3.0 3.5-5.0 [place] 117152-07-19 09:29:00 Test Item Value Reference Range Interpretation Comments ALT (test code = ALT) 92 See_Comment [Auto mated message] The system which ge nerated this result transmit swathi reference range : <=65. The reference range was not used to interpr et this result as deny l/abnormal. [facility] [id number] 09:29:00 Test Item Value Reference Range Interpretation Comments AST (test code = AST) 123 See_Comment [Auto mated message] The system which ge nerated this result transmit swathi reference range : <=37. The reference range was not used to interpr et this result as deny l/abnormal. [facility] [id number] 09:29:00 Test Item Value Reference Range Interpretation Comments Alk Phos (test code = Alk Phos) 272 39-136 [facility] [id number] 09:29:00 Test Item Value Reference Range Interpretation Comments Bili Total (test code = Bili Total) 0.9 0.2-1.3 [facility] [id number] 09:29:00 Test Item Value Reference Range Interpretation Comments Alk Phos (test code = Alk Phos) 272 39-136 [facility] [id number] 09:29:00 Test Item Value Reference Range Interpretation Comments AGAP (test code = AGAP) 10.3 10.0-20.0 [facility] [id number] 09:29:00 Test Item Value Reference Range Interpretation Comments B/C Ratio (test code = B/C Ratio) 6 1 6-25 [facility] [id number] 09:29:00 Test Item Value Reference Range Interpretation Comments Globulin (test code = Globulin) 3.6 2.7-4.2 [facility] [id number] 09:29:00 Test Item Value Reference Range Interpretation Comments A/G Ratio (test code = A/G Ratio) 0.8 1 0.7-1.6 [facility] [id number] 09:29:00 Test Item Value Reference Range Interpretation Comments eGFR (test code = eGFR) 12 [facility] [id number] 09:29:00 Test Item Value Reference Range Interpretation Comments Phosphorus (test code = Phosphorus) 4.3 2.5-4.5 [facility] CenterDcmrzfeFHXLSFVFSR0284-93-65 09:29:00 Test Item Value Reference Range Interpretation Comments WBC (test code = WBC) 4.7 3.7-10.4 [facility] CenterBnmkhcwXLSHOWWEEE9147-26-35 09:29:00 Test Item Value Reference Range Interpretation Comments RBC (test code = RBC) 2.14 4.70-6.10 [facility] CenterGpjhqqkMPGDABIOQE6166-37-11 09:29:00 Test Item Value Reference Range Interpretation Comments Hgb (test code = Hgb) 7.6 14.0-18.0 [facility] CenterXwbfnvyIVNYKOXOGZ6276-53-46 09:29:00 Test Item Value Reference Range Interpretation Comments Hct (test code = Hct) 22.8 42.0-54.0 [facility]2022-07-19 09:29:00 Test Item Value Reference Range Interpretation Comments Bili Total (test code = Bili Total) 0.9 0.2-1.3 [facility] CenterRpolvisKSOXNKDTED3004-62-58 09:29:00 Test Item Value Reference Range Interpretation Comments MCV (test code = MCV) 106.6 80.0-94.0 [facility] CenterOwpohzmGVPMLERTZT5460-22-18 09:29:00 Test Item Value Reference Range Interpretation Comments MCH (test code = MCH) 35.6 pg 27.0-31.0 [facility] CenterRpkebpuXQHKPGJDHY2192-12-51 09:29:00 Test Item Value Reference Range Interpretation Comments MCHC (test code = MCHC) 33.4 32.0-36.0 [facility] CenterFtlxeknGIIYVPJDLL8458-15-91 09:29:00 Test Item Value Reference Range Interpretation Comments RDW (test code = RDW) 24.3 11.5-14.5 [facility] CenterHpqixsvYMSASQCWIF6391-35-03 09:29:00 Test Item Value Reference Range Interpretation Comments Platelet (test code = Platelet) 148 133-450 [facility] CenterUgjlqgpGVYNXZIIVG9958-30-68 09:29:00 Test Item Value Reference Range Interpretation Comments MPV (test code = MPV) 8.1 7.4-10.4 [facility] CenterCpyjtypDEVAWDDTYT4348-32-83 09:29:00 Test Item Value Reference Range Interpretation Comments D-Dimer (test code = D-Dimer) 3.63 [place] 768472-07-19 09:29:00 Test Item Value Reference Range Interpretation Comments Segs (test code = Segs) 74.8 45.0-75.0 [facility] CenterGozortcKYVJAQESVS8222-44-45 09:29:00 Test Item Value Reference Range Interpretation Comments Lymphocytes (test code = Lymphocytes) 15.5 20.0-40.0 [facility] CenterNhifqvaNICHCETXRS0312-02-31 09:29:00 Test Item Value Reference Range Interpretation Comments Monocytes (test code = Monocytes) 9.5 2.0-12.0 [facility]2022-07-19 09:29:00 Test Item Value Reference Range Interpretation Comments AGAP (test code = AGAP) 10.3 10.0-20.0 [facility] CenterZfvwgvyHKEHZQUXKD9712-29-90 09:29:00 Test Item Value Reference Range Interpretation Comments Basophils (test code = 0.2 See_Comment [Aut omated message] The Basophils) system which ge nerated this result tra nsmitted reference range : <=1.0. The reference r samantha was not used to int erpret this result as normal/abnormal . [facility] CenterSmisqnmLEMPVEGAUM7901-43-76 09:29:00 Test Item Value Reference Range Interpretation Comments Neutrophils # (test code = Neutrophils 3.5 1.5-8.1 #) [facility] CenterJuarvdmLPEZIIZJEC8562-61-30 09:29:00 Test Item Value Reference Range Interpretation Comments Lymphocytes # (test code = Lymphocytes 0.7 1.0-5.5 #) [facility] CenterVllspzePQAQRIXXCK9594-20-51 09:29:00 Test Item Value Reference Range Interpretation Comments Monocytes # (test code 0.4 See_Comment [Aut omated message] The = Monocytes #) system which generated this result tra nsmitted reference range : <=0.8. The reference r samantha was not used to int erpret this result as normal/abnormal . [facility] CenterRpmgjbqUOQFXCXWRK0515-34-15 09:29:00 Test Item Value Reference Range Interpretation Comments Macrocyte (test code = 1+ *ABN*(12/16/21 Macrocyte) 4:29 AM) [facility]ap[facility]RXYEJJGHIA9542-41-75 09:29:00 Test Item Value Reference Range Interpretation Comments C-REACTIVE PROTEIN (test code = 19.0 C-REACTIVE PROTEIN) [facility]2022-07-19 09:29:00 Test Item Value Reference Range Interpretation Comments B/C Ratio (test code = B/C Ratio) 6 1 6-25 [place] 117152-07-19 09:29:00 Test Item Value Reference Range Interpretation Comments Globulin (test code = Globulin) 3.6 2.7-4.2 [place] 117152-07-19 09:29:00 Test Item Value Reference Range Interpretation Comments A/G Ratio (test code = A/G Ratio) 0.8 1 0.7-1.6 [place] 117152-07-19 09:29:00 Test Item Value Reference Range Interpretation Comments eGFR (test code = eGFR) 12 [facility]2022-07-19 09:29:00 Test Item Value Reference Range Interpretation Comments Phosphorus (test code = Phosphorus) 4.3 2.5-4.5 [place] 768472-07-19 09:29:00 Test Item Value Reference Range Interpretation Comments WBC (test code = WBC) 4.7 3.7-10.4 [place] 768472-07-19 09:29:00 Test Item Value Reference Range Interpretation Comments RBC (test code = RBC) 2.14 4.70-6.10 [place] 768472-07-19 09:29:00 Test Item Value Reference Range Interpretation Comments Hgb (test code = Hgb) 7.6 14.0-18.0 [place] 768472-07-19 09:29:00 Test Item Value Reference Range Interpretation Comments Hct (test code = Hct) 22.8 42.0-54.0 [place] 768472-07-19 09:29:00 Test Item Value Reference Range Interpretation Comments MCV (test code = MCV) 106.6 80.0-94.0 [place] [address]-07-19 09:29:00 Test Item Value Reference Range Interpretation Comments MCH (test code = MCH) 35.6 pg 27.0-31.0 [facility] CenterNqvujjyFAHEZBTIRK4814-90-36 09:29:00 Test Item Value Reference Range Interpretation Comments MCHC (test code = MCHC) 33.4 32.0-36.0 [place] 768472-07-19 09:29:00 Test Item Value Reference Range Interpretation Comments RDW (test code = RDW) 24.3 11.5-14.5 [facility] CenterOnozoukJSAYZRJUPZ8491-09-36 09:29:00 Test Item Value Reference Range Interpretation Comments Platelet (test code = Platelet) 148 133-450 [facility] CenterUyjatbfCGEWIVQMLW2481-21-78 09:29:00 Test Item Value Reference Range Interpretation Comments MPV (test code = MPV) 8.1 7.4-10.4 [place] 768472-07-19 09:29:00 Test Item Value Reference Range Interpretation Comments D-Dimer (test code = D-Dimer) 3.63 [place] 768472-07-19 09:29:00 Test Item Value Reference Range Interpretation Comments Segs (test code = Segs) 74.8 45.0-75.0 [place] 768472-07-19 09:29:00 Test Item Value Reference Range Interpretation Comments Lymphocytes (test code = Lymphocytes) 15.5 20.0-40.0 [facility] CenterFwudeyeJRQEXEVYCW7454-52-86 09:29:00 Test Item Value Reference Range Interpretation Comments Monocytes (test code = Monocytes) 9.5 2.0-12.0 [place] 768472-07-19 09:29:00 Test Item Value Reference Range Interpretation Comments Basophils (test code = 0.2 See_Comment [Aut omated message] The Basophils) system which ge nerated this result tra nsmitted reference range : <=1.0. The reference r samantha was not used to int erpret this result as normal/abnormal . [facility] CenterTzfoiawTXMNFIWCIJ3102-54-65 09:29:00 Test Item Value Reference Range Interpretation Comments Neutrophils # (test code = Neutrophils 3.5 1.5-8.1 #) [place] 768472-07-19 09:29:00 Test Item Value Reference Range Interpretation Comments Lymphocytes # (test code = Lymphocytes 0.7 1.0-5.5 #) [place] [address]-07-19 09:29:00 Test Item Value Reference Range Interpretation Comments Monocytes # (test code 0.4 See_Comment [Aut omated message] The = Monocytes #) system which generated this result tra nsmitted reference range : <=0.8. The reference r samantha was not used to int erpret this result as normal/abnormal . [place] [address]-07-19 09:29:00 Test Item Value Reference Range Interpretation Comments Macrocyte (test code = 1+ *ABN*(12/16/21 Macrocyte) 4:29 AM) [facility] CampusRlzhcieZSVNVQQWNH4465-69-25 09:29:00 Test Item Value Reference Range Interpretation Comments C-REACTIVE PROTEIN (test code = 19.0 C-REACTIVE PROTEIN) [place] 117152-07-19 09:29:00 Test Item Value Reference Range Interpretation Comments Glucose Lvl (test code = Glucose Lvl) 199 70-99 [place] 117152-07-19 09:29:00 Test Item Value Reference Range Interpretation Comments BUN (test code = BUN) 28 - [place] 117152-07-19 09:29:00 Test Item Value Reference Range Interpretation Comments Creatinine Lvl (test code = Creatinine 4.84 0.50-1.40 Lvl) [place] 117152-07-19 09:29:00 Test Item Value Reference Range Interpretation Comments Sodium Lvl (test code = Sodium Lvl) 134 135-145 [place] 117152-07-19 09:29:00 Test Item Value Reference Range Interpretation Comments Potassium Lvl (test code = Potassium 4.3 3.5-5.1 Lvl) [place] 117152-07-19 09:29:00 Test Item Value Reference Range Interpretation Comments Chloride Lvl (test code = Chloride Lvl) 100 95-109 [facility]2022-07-19 09:29:00 Test Item Value Reference Range Interpretation Comments CO2 (test code = CO2) 28 24-32 [place] 117152-07-19 09:29:00 Test Item Value Reference Range Interpretation Comments Calcium Lvl (test code = Calcium Lvl) 9.4 8.5-10.5 [place] 117152-07-19 09:29:00 Test Item Value Reference Range Interpretation Comments Total Protein (test code = Total 6.6 6.4-8.4 Protein) [place] 117152-07-19 09:29:00 Test Item Value Reference Range Interpretation Comments Albumin Lvl (test code = Albumin Lvl) 3.0 3.5-5.0 [place] 117152-07-19 09:29:00 Test Item Value Reference Range Interpretation Comments ALT (test code = ALT) 92 See_Comment [Auto mated message] The system which ge nerated this result transmit swathi reference range : <=65. The reference range was not used to interpr et this result as deny l/abnormal. [facility] [employer] [id number] 09:29:00 Test Item Value Reference Range Interpretation Comments AST (test code = AST) 123 See_Comment [Auto mated message] The system which ge nerated this result transmit swathi reference range : <=37. The reference range was not used to interpr et this result as deny l/abnormal. [facility] [employer] [id number] 09:29:00 Test Item Value Reference Range Interpretation Comments Alk Phos (test code = Alk Phos) 272 39-136 [facility] [employer] [id number] 09:29:00 Test Item Value Reference Range Interpretation Comments Bili Total (test code = Bili Total) 0.9 0.2-1.3 [facility] [id number] 09:29:00 Test Item Value Reference Range Interpretation Comments AGAP (test code = AGAP) 10.3 10.0-20.0 [facility] [id number] 09:29:00 Test Item Value Reference Range Interpretation Comments B/C Ratio (test code = B/C Ratio) 6 1 6-25 [facility] [id number] 09:29:00 Test Item Value Reference Range Interpretation Comments Globulin (test code = Globulin) 3.6 2.7-4.2 [facility] [id number] 09:29:00 Test Item Value Reference Range Interpretation Comments A/G Ratio (test code = A/G Ratio) 0.8 1 0.7-1.6 [facility] [id number] 09:29:00 Test Item Value Reference Range Interpretation Comments eGFR (test code = eGFR) 12 [facility] [id number] 09:29:00 Test Item Value Reference Range Interpretation Comments Phosphorus (test code = Phosphorus) 4.3 2.5-4.5 [facility] CenterYswbjvtNPYXMEDPCB0669-64-99 09:29:00 Test Item Value Reference Range Interpretation Comments WBC (test code = WBC) 4.7 3.7-10.4 [place] 768472-07-19 09:29:00 Test Item Value Reference Range Interpretation Comments RBC (test code = RBC) 2.14 4.70-6.10 [place] 768472-07-19 09:29:00 Test Item Value Reference Range Interpretation Comments Hgb (test code = Hgb) 7.6 14.0-18.0 [place] 768472-07-19 09:29:00 Test Item Value Reference Range Interpretation Comments Hct (test code = Hct) 22.8 42.0-54.0 [place] 768472-07-19 09:29:00 Test Item Value Reference Range Interpretation Comments MCV (test code = MCV) 106.6 80.0-94.0 [place] 768472-07-19 09:29:00 Test Item Value Reference Range Interpretation Comments MCH (test code = MCH) 35.6 pg 27.0-31.0 [place] 768472-07-19 09:29:00 Test Item Value Reference Range Interpretation Comments MCHC (test code = MCHC) 33.4 32.0-36.0 [place] 768472-07-19 09:29:00 Test Item Value Reference Range Interpretation Comments RDW (test code = RDW) 24.3 11.5-14.5 [place] 768472-07-19 09:29:00 Test Item Value Reference Range Interpretation Comments Platelet (test code = Platelet) 148 133-450 [facility] CenterKtzhdovDEMEEJYNAJ9410-60-16 09:29:00 Test Item Value Reference Range Interpretation Comments MPV (test code = MPV) 8.1 7.4-10.4 [place] 768472-07-19 09:29:00 Test Item Value Reference Range Interpretation Comments D-Dimer (test code = D-Dimer) 3.63 [place] 768472-07-19 09:29:00 Test Item Value Reference Range Interpretation Comments Segs (test code = Segs) 74.8 45.0-75.0 [place] 768472-07-19 09:29:00 Test Item Value Reference Range Interpretation Comments Lymphocytes (test code = Lymphocytes) 15.5 20.0-40.0 [place] 768472-07-19 09:29:00 Test Item Value Reference Range Interpretation Comments Monocytes (test code = Monocytes) 9.5 2.0-12.0 [facility] CampusJdyzwjbKLYHGOKCBE7293-44-05 09:29:00 Test Item Value Reference Range Interpretation Comments Basophils (test code = 0.2 See_Comment [Aut omated message] The Basophils) system which ge nerated this result tra nsmitted reference range : <=1.0. The reference r samantha was not used to int erpret this result as normal/abnormal . [facility] CenterSlxntigABMNIKQDJN4967-93-18 09:29:00 Test Item Value Reference Range Interpretation Comments Neutrophils # (test code = Neutrophils 3.5 1.5-8.1 #) [facility] CenterJwvnfxeHGKTHURMSL4177-85-96 09:29:00 Test Item Value Reference Range Interpretation Comments Lymphocytes # (test code = Lymphocytes 0.7 1.0-5.5 #) [facility] CenterFxgmwolFWCJVPXJMD2265-48-98 09:29:00 Test Item Value Reference Range Interpretation Comments Monocytes # (test code 0.4 See_Comment [Aut omated message] The = Monocytes #) system which generated this result tra nsmitted reference range : <=0.8. The reference r samantha was not used to int erpret this result as normal/abnormal . [facility] CampusAzjbkhvEEWENKQXYI1379-57-10 09:29:00 Test Item Value Reference Range Interpretation Comments Macrocyte (test code = 1+ *ABN*(12/16/21 Macrocyte) 4:29 AM) [facility] CampusSekewjoBTAQKWCGKU6965-62-81 09:29:00 Test Item Value Reference Range Interpretation Comments C-REACTIVE PROTEIN (test code = 19.0 C-REACTIVE PROTEIN) [facility] [id number] 09:29:00 Test Item Value Reference Range Interpretation Comments Glucose Lvl (test code = Glucose Lvl) 199 70-99 [facility] [id number] 09:29:00 Test Item Value Reference Range Interpretation Comments BUN (test code = BUN) 28 12-19 [facility] CampusAble[facility] [id number] 09:29:00 Test Item Value Reference Range Interpretation Comments Creatinine Lvl (test code = Creatinine 4.84 0.50-1.40 Lvl) [facility] [id number] 09:29:00 Test Item Value Reference Range Interpretation Comments Sodium Lvl (test code = Sodium Lvl) 134 135-145 [place] 117152-07-19 09:29:00 Test Item Value Reference Range Interpretation Comments Potassium Lvl (test code = Potassium 4.3 3.5-5.1 Lvl) [place] 117152-07-19 09:29:00 Test Item Value Reference Range Interpretation Comments Chloride Lvl (test code = Chloride Lvl) 100 95-109 [place] [address]-07-19 09:29:00 Test Item Value Reference Range Interpretation Comments CO2 (test code = CO2) 28 24-32 [place] [address]-07-19 09:29:00 Test Item Value Reference Range Interpretation Comments Calcium Lvl (test code = Calcium Lvl) 9.4 8.5-10.5 [place] 117152-07-19 09:29:00 Test Item Value Reference Range Interpretation Comments Total Protein (test code = Total 6.6 6.4-8.4 Protein) [address]07-19 09:29:00 Test Item Value Reference Range Interpretation Comments Albumin Lvl (test code = Albumin Lvl) 3.0 3.5-5.0 [place] 117152-07-19 09:29:00 Test Item Value Reference Range Interpretation Comments ALT (test code = ALT) 92 See_Comment [Auto mated message] The system which ge nerated this result transmit swathi reference range : <=65. The reference range was not used to interpr et this result as deny l/abnormal. [place] 117152-07-19 09:29:00 Test Item Value Reference Range Interpretation Comments AST (test code = AST) 123 See_Comment [Auto mated message] The system which ge nerated this result transmit swathi reference range : <=37. The reference range was not used to interpr et this result as deny l/abnormal. [place] [address]-07-19 09:29:00 Test Item Value Reference Range Interpretation Comments Alk Phos (test code = Alk Phos) 272 39-136 [place] 117152-07-19 09:29:00 Test Item Value Reference Range Interpretation Comments Bili Total (test code = Bili Total) 0.9 0.2-1.3 [place] [address]-07-19 09:29:00 Test Item Value Reference Range Interpretation Comments AGAP (test code = AGAP) 10.3 10.0-20.0 [place] 117152-07-19 09:29:00 Test Item Value Reference Range Interpretation Comments B/C Ratio (test code = B/C Ratio) 6 1 6-25 [place] 117152-07-19 09:29:00 Test Item Value Reference Range Interpretation Comments Globulin (test code = Globulin) 3.6 2.7-4.2 [place] 117152-07-19 09:29:00 Test Item Value Reference Range Interpretation Comments A/G Ratio (test code = A/G Ratio) 0.8 1 0.7-1.6 [place] 117152-07-19 09:29:00 Test Item Value Reference Range Interpretation Comments eGFR (test code = eGFR) 12 [facility]2022-07-19 09:29:00 Test Item Value Reference Range Interpretation Comments Phosphorus (test code = Phosphorus) 4.3 2.5-4.5 [place] 768472-07-19 09:29:00 Test Item Value Reference Range Interpretation Comments WBC (test code = WBC) 4.7 3.7-10.4 [place] 768472-07-19 09:29:00 Test Item Value Reference Range Interpretation Comments RBC (test code = RBC) 2.14 4.70-6.10 [place] 768472-07-19 09:29:00 Test Item Value Reference Range Interpretation Comments Hgb (test code = Hgb) 7.6 14.0-18.0 [place] 768472-07-19 09:29:00 Test Item Value Reference Range Interpretation Comments Hct (test code = Hct) 22.8 42.0-54.0 [place] 768472-07-19 09:29:00 Test Item Value Reference Range Interpretation Comments MCV (test code = MCV) 106.6 80.0-94.0 [place] [address]-07-19 09:29:00 Test Item Value Reference Range Interpretation Comments MCH (test code = MCH) 35.6 pg 27.0-31.0 [place] 768472-07-19 09:29:00 Test Item Value Reference Range Interpretation Comments MCHC (test code = MCHC) 33.4 32.0-36.0 [place] 768472-07-19 09:29:00 Test Item Value Reference Range Interpretation Comments RDW (test code = RDW) 24.3 11.5-14.5 [place] 768472-07-19 09:29:00 Test Item Value Reference Range Interpretation Comments Platelet (test code = Platelet) 148 133-450 [place] 768472-07-19 09:29:00 Test Item Value Reference Range Interpretation Comments MPV (test code = MPV) 8.1 7.4-10.4 [place] 768472-07-19 09:29:00 Test Item Value Reference Range Interpretation Comments D-Dimer (test code = D-Dimer) 3.63 [place] 768472-07-19 09:29:00 Test Item Value Reference Range Interpretation Comments Segs (test code = Segs) 74.8 45.0-75.0 [place] 768472-07-19 09:29:00 Test Item Value Reference Range Interpretation Comments Lymphocytes (test code = Lymphocytes) 15.5 20.0-40.0 [place] 768472-07-19 09:29:00 Test Item Value Reference Range Interpretation Comments Monocytes (test code = Monocytes) 9.5 2.0-12.0 [place] 768472-07-19 09:29:00 Test Item Value Reference Range Interpretation Comments Basophils (test code = 0.2 See_Comment [Aut omated message] The Basophils) system which ge nerated this result tra nsmitted reference range : <=1.0. The reference r samantha was not used to int erpret this result as normal/abnormal . [facility] CenterTddzwmlWKMETKCXCT7146-62-64 09:29:00 Test Item Value Reference Range Interpretation Comments Neutrophils # (test code = Neutrophils 3.5 1.5-8.1 #) [place] 768472-07-19 09:29:00 Test Item Value Reference Range Interpretation Comments Lymphocytes # (test code = Lymphocytes 0.7 1.0-5.5 #) [place] 768472-07-19 09:29:00 Test Item Value Reference Range Interpretation Comments Monocytes # (test code 0.4 See_Comment [Aut omated message] The = Monocytes #) system which generated this result tra nsmitted reference range : <=0.8. The reference r samantha was not used to int erpret this result as normal/abnormal . [facility] CampusAwulwykQVTLUCDEOC6388-61-91 09:29:00 Test Item Value Reference Range Interpretation Comments Macrocyte (test code = 1+ *ABN*(12/16/21 Macrocyte) 4:29 AM) [facility] CenterAwrcteiHSUQIUKLQN6313-83-40 09:29:00 Test Item Value Reference Range Interpretation Comments C-REACTIVE PROTEIN (test code = 19.0 C-REACTIVE PROTEIN) [facility] CenterKgacfogTBDMSZLGGJ1193-55-22 02:28:00 Test Item Value Reference Range Interpretation Comments Hep Bs Ag (test code Negative *NA*(12/15/21 = Hep Bs Ag) 9:28 PM) [facility] CenterXzsoblwFXYHYEXJVT7895-75-94 02:28:00 Test Item Value Reference Range Interpretation Comments Hep Bs Ag (test code Negative *NA*(12/15/21 = Hep Bs Ag) 9:28 PM) [facility] CenterIttgztiMQROCBQQEU9616-38-38 02:28:00 Test Item Value Reference Range Interpretation Comments Hep Bs Ag (test code Negative *NA*(12/15/21 = Hep Bs Ag) 9:28 PM) [facility] CenterXblzmyoDKRQXQHSHE0953-26-51 02:28:00 Test Item Value Reference Range Interpretation Comments Hep Bs Ag (test code Negative *NA*(12/15/21 = Hep Bs Ag) 9:28 PM) [facility] CenterYffkykcJZBQTLBWUI5587-23-17 02:28:00 Test Item Value Reference Range Interpretation Comments Hep Bs Ag (test code Negative *NA*(12/15/21 = Hep Bs Ag) 9:28 PM) [facility] CenterannGram Stain [id number] 17:16:00 Test Item Value Reference Range Interpretation Comments Gram Stain Report Gram Stain Performed By: (test code = Gram [facility] Stain Report) [facility]/Gram [id number] 17:16:00 Test Item Value Reference Range Interpretation Comments Culture: Respiratory Moderate Yeast Normal w/Gram Stain (test code Respiratory Lyndsay = Culture: Respiratory Isolated w/Gram Stain) [facility]annGram Stain [id number] 17:16:00 Test Item Value Reference Range Interpretation Comments Gram Stain Report Gram Stain Performed By: (test code = Gram [facility] Stain Report) [facility]ann[facility]: Respiratory w/Gram [id number] 17:16:00 Test Item Value Reference Range Interpretation Comments Culture: Respiratory Moderate Yeast Normal w/Gram Stain (test code Respiratory Lyndsay = Culture: Respiratory Isolated w/Gram Stain) [facility] [id number] 17:16:00 Test Item Value Reference Range Interpretation Comments Gram Stain Report Gram Stain Performed By: (test code = Gram [facility] Stain Report) [facility]: Respiratory w/Gram [id number] 17:16:00 Test Item Value Reference Range Interpretation Comments Culture: Respiratory Moderate Yeast Normal w/Gram Stain (test code Respiratory Lyndsay = Culture: Respiratory Isolated w/Gram Stain) [facility] [id number] 17:16:00 Test Item Value Reference Range Interpretation Comments Gram Stain Report Gram Stain Performed By: (test code = Gram [facility] Stain Report) [facility]ann[facility]: Respiratory w/Gram [id number] 17:16:00 Test Item Value Reference Range Interpretation Comments Culture: Respiratory Moderate Yeast Normal w/Gram Stain (test code Respiratory Lyndsay = Culture: Respiratory Isolated w/Gram Stain) [facility] [id number] 17:16:00 Test Item Value Reference Range Interpretation Comments Gram Stain Report Gram Stain Performed By: (test code = Gram [facility] Stain Report) [facility]ann[facility]: Respiratory w/Gram [id number] 17:16:00 Test Item Value Reference Range Interpretation Comments Culture: Respiratory Moderate Yeast Normal w/Gram Stain (test code Respiratory Lyndsay = Culture: Respiratory Isolated w/Gram Stain) [facility] [id number] 09:04:00 Test Item Value Reference Range Interpretation Comments Glucose Lvl (test code = Glucose Lvl) 59 70-99 [facility] CenterannCHEM [id number] 09:04:00 Test Item Value Reference Range Interpretation Comments BUN (test code = BUN) 41 7-22 [facility]annCHEM [id number] 09:04:00 Test Item Value Reference Range Interpretation Comments Creatinine Lvl (test code = Creatinine 7.00 0.50-1.40 Lvl) [facility] [id number] 09:04:00 Test Item Value Reference Range Interpretation Comments Sodium Lvl (test code = Sodium Lvl) 134 135-145 [place] 117152-07-18 09:04:00 Test Item Value Reference Range Interpretation Comments Potassium Lvl (test code = Potassium 4.0 3.5-5.1 Lvl) [place] 117152-07-18 09:04:00 Test Item Value Reference Range Interpretation Comments Chloride Lvl (test code = Chloride Lvl) 102 95-109 [place] 117152-07-18 09:04:00 Test Item Value Reference Range Interpretation Comments CO2 (test code = CO2) 25 24-32 [place] 117152-07-18 09:04:00 Test Item Value Reference Range Interpretation Comments Calcium Lvl (test code = Calcium Lvl) 9.1 8.5-10.5 [place] 117152-07-18 09:04:00 Test Item Value Reference Range Interpretation Comments Total Protein (test code = Total 6.2 6.4-8.4 Protein) [place] 117152-07-18 09:04:00 Test Item Value Reference Range Interpretation Comments Albumin Lvl (test code = Albumin Lvl) 2.8 3.5-5.0 [place] 117152-07-18 09:04:00 Test Item Value Reference Range Interpretation Comments ALT (test code = ALT) 78 See_Comment [Auto mated message] The system which ge nerated this result transmit swathi reference range : <=65. The reference range was not used to interpr et this result as deny l/abnormal. [facility]2022-07-18 09:04:00 Test Item Value Reference Range Interpretation Comments AST (test code = AST) 117 See_Comment [Auto mated message] The system which ge nerated this result transmit swathi reference range : <=37. The reference range was not used to interpr et this result as deny l/abnormal. [facility] [id number] 09:04:00 Test Item Value Reference Range Interpretation Comments Alk Phos (test code = Alk Phos) 251 39-136 [place] 117152-07-18 09:04:00 Test Item Value Reference Range Interpretation Comments Bili Total (test code = Bili Total) 0.9 0.2-1.3 [place] 117152-07-18 09:04:00 Test Item Value Reference Range Interpretation Comments AGAP (test code = AGAP) 11.0 10.0-20.0 [place] 117152-07-18 09:04:00 Test Item Value Reference Range Interpretation Comments B/C Ratio (test code = B/C Ratio) 6 1 6-25 [place] 117152-07-18 09:04:00 Test Item Value Reference Range Interpretation Comments Globulin (test code = Globulin) 3.4 2.7-4.2 [place] 117152-07-18 09:04:00 Test Item Value Reference Range Interpretation Comments A/G Ratio (test code = A/G Ratio) 0.8 1 0.7-1.6 [place] 117152-07-18 09:04:00 Test Item Value Reference Range Interpretation Comments eGFR (test code = eGFR) 8 [place] 768472-07-18 09:04:00 Test Item Value Reference Range Interpretation Comments D-Dimer (test code = D-Dimer) 3.03 [place] 768472-07-18 09:04:00 Test Item Value Reference Range Interpretation Comments WBC (test code = WBC) 3.6 3.7-10.4 [place] 768472-07-18 09:04:00 Test Item Value Reference Range Interpretation Comments RBC (test code = RBC) 2.07 4.70-6.10 [place] 768472-07-18 09:04:00 Test Item Value Reference Range Interpretation Comments Hgb (test code = Hgb) 7.5 14.0-18.0 [place] 768472-07-18 09:04:00 Test Item Value Reference Range Interpretation Comments Hct (test code = Hct) 22.0 42.0-54.0 [place] [address]-07-18 09:04:00 Test Item Value Reference Range Interpretation Comments MCV (test code = MCV) 106.3 80.0-94.0 [place] [address]-07-18 09:04:00 Test Item Value Reference Range Interpretation Comments MCH (test code = MCH) 36.1 pg 27.0-31.0 [place] [address]-07-18 09:04:00 Test Item Value Reference Range Interpretation Comments MCHC (test code = MCHC) 33.9 32.0-36.0 [place] 768472-07-18 09:04:00 Test Item Value Reference Range Interpretation Comments RDW (test code = RDW) 23.9 11.5-14.5 [place] 768472-07-18 09:04:00 Test Item Value Reference Range Interpretation Comments Platelet (test code = Platelet) 133 133-450 [place] 768472-07-18 09:04:00 Test Item Value Reference Range Interpretation Comments MPV (test code = MPV) 8.1 7.4-10.4 [place] 768472-07-18 09:04:00 Test Item Value Reference Range Interpretation Comments Segs (test code = Segs) 60.8 45.0-75.0 [place] 768472-07-18 09:04:00 Test Item Value Reference Range Interpretation Comments Lymphocytes (test code = Lymphocytes) 22.3 20.0-40.0 [place] 768472-07-18 09:04:00 Test Item Value Reference Range Interpretation Comments Monocytes (test code = Monocytes) 13.9 2.0-12.0 [place] 768472-07-18 09:04:00 Test Item Value Reference Range Interpretation Comments Eosinophils (test code = 2.6 See_Comment [A utomated message] The Eosinophils) system which ge nerated this result tra nsmitted reference range : <=4.0. The reference r samantha was not used to int erpret this result as normal/abnormal . [place] 768472-07-18 09:04:00 Test Item Value Reference Range Interpretation Comments Basophils (test code = 0.4 See_Comment [Aut omated message] The Basophils) system which ge nerated this result tra nsmitted reference range : <=1.0. The reference r samantha was not used to int erpret this result as normal/abnormal . [place] 768472-07-18 09:04:00 Test Item Value Reference Range Interpretation Comments Neutrophils # (test code = Neutrophils 2.2 1.5-8.1 #) [place] 768472-07-18 09:04:00 Test Item Value Reference Range Interpretation Comments Lymphocytes # (test code = Lymphocytes 0.8 1.0-5.5 #) [facility]gCGNYOOVFEU4322-27-[facility] 09:04:00 Test Item Value Reference Range Interpretation Comments Monocytes # (test code 0.5 See_Comment [Aut omated message] The = Monocytes #) system which generated this result tra nsmitted reference range : <=0.8. The reference r samantha was not used to int erpret this result as normal/abnormal . [facility] CenterFcleuwqJMWJSPVZFF2670-26-70 09:04:00 Test Item Value Reference Range Interpretation Comments Eosinophils # (test code 0.1 See_Comment [A utomated message] The = Eosinophils #) system whic h generated this result tra nsmitted reference range : <=0.5. The reference r samantha was not used to int erpret this result as normal/abnormal . [facility] CenterTyulpqkXOJMDLRTDE5693-23-57 09:04:00 Test Item Value Reference Range Interpretation Comments Macrocyte (test code = 1+ *ABN*(12/15/21 Macrocyte) 4:04 AM) [facility] CampusAchwryvRYHSATMVBA7425-90-88 09:04:00 Test Item Value Reference Range Interpretation Comments C-REACTIVE PROTEIN (test code = 25.1 C-REACTIVE PROTEIN) [facility] CampusJxkbxdiEFPCPPDUWE9396-41-74 09:04:00 Test Item Value Reference Range Interpretation Comments Vanco Lvl (test code = Vanco Lvl) 15.2 [facility]2022-07-18 09:04:00 Test Item Value Reference Range Interpretation Comments Glucose Lvl (test code = Glucose Lvl) 59 70-99 [facility]2022-07-18 09:04:00 Test Item Value Reference Range Interpretation Comments BUN (test code = BUN) 41 7-22 [place] 117152-07-18 09:04:00 Test Item Value Reference Range Interpretation Comments Creatinine Lvl (test code = Creatinine 7.00 0.50-1.40 Lvl) [place] 117152-07-18 09:04:00 Test Item Value Reference Range Interpretation Comments Sodium Lvl (test code = Sodium Lvl) 134 135-145 [place] 117152-07-18 09:04:00 Test Item Value Reference Range Interpretation Comments Potassium Lvl (test code = Potassium 4.0 3.5-5.1 Lvl) [place] 117152-07-18 09:04:00 Test Item Value Reference Range Interpretation Comments Chloride Lvl (test code = Chloride Lvl) 102 95-109 [place] [address]-07-18 09:04:00 Test Item Value Reference Range Interpretation Comments CO2 (test code = CO2) 25 24-32 [place] 117152-07-18 09:04:00 Test Item Value Reference Range Interpretation Comments Calcium Lvl (test code = Calcium Lvl) 9.1 8.5-10.5 [place] [address]-07-18 09:04:00 Test Item Value Reference Range Interpretation Comments Total Protein (test code = Total 6.2 6.4-8.4 Protein) [place] [address]-07-18 09:04:00 Test Item Value Reference Range Interpretation Comments Albumin Lvl (test code = Albumin Lvl) 2.8 3.5-5.0 [place] 117152-07-18 09:04:00 Test Item Value Reference Range Interpretation Comments ALT (test code = ALT) 78 See_Comment [Auto mated message] The system which ge nerated this result transmit swathi reference range : <=65. The reference range was not used to interpr et this result as deny l/abnormal. [place] [address]-07-18 09:04:00 Test Item Value Reference Range Interpretation Comments AST (test code = AST) 117 See_Comment [Auto mated message] The system which ge nerated this result transmit swathi reference range : <=37. The reference range was not used to interpr et this result as deny l/abnormal. [facility] [id number] 09:04:00 Test Item Value Reference Range Interpretation Comments Alk Phos (test code = Alk Phos) 251 39-136 [place] [address]-07-18 09:04:00 Test Item Value Reference Range Interpretation Comments Bili Total (test code = Bili Total) 0.9 0.2-1.3 [place] [address]-07-18 09:04:00 Test Item Value Reference Range Interpretation Comments AGAP (test code = AGAP) 11.0 10.0-20.0 [facility] [id number] 09:04:00 Test Item Value Reference Range Interpretation Comments B/C Ratio (test code = B/C Ratio) 6 1 6-25 [place] 117152-07-18 09:04:00 Test Item Value Reference Range Interpretation Comments Globulin (test code = Globulin) 3.4 2.7-4.2 [place] 117152-07-18 09:04:00 Test Item Value Reference Range Interpretation Comments A/G Ratio (test code = A/G Ratio) 0.8 1 0.7-1.6 [place] 117152-07-18 09:04:00 Test Item Value Reference Range Interpretation Comments eGFR (test code = eGFR) 8 [facility] CenterHcqmjtoVPJSKVYBEQ0061-80-67 09:04:00 Test Item Value Reference Range Interpretation Comments D-Dimer (test code = D-Dimer) 3.03 [place] 768472-07-18 09:04:00 Test Item Value Reference Range Interpretation Comments WBC (test code = WBC) 3.6 3.7-10.4 [place] 768472-07-18 09:04:00 Test Item Value Reference Range Interpretation Comments RBC (test code = RBC) 2.07 4.70-6.10 [facility] CenterWiccukgUNLRBWIMTF0055-83-40 09:04:00 Test Item Value Reference Range Interpretation Comments Hgb (test code = Hgb) 7.5 14.0-18.0 [place] 768472-07-18 09:04:00 Test Item Value Reference Range Interpretation Comments Hct (test code = Hct) 22.0 42.0-54.0 [place] 768472-07-18 09:04:00 Test Item Value Reference Range Interpretation Comments MCV (test code = MCV) 106.3 80.0-94.0 [place] 768472-07-18 09:04:00 Test Item Value Reference Range Interpretation Comments MCH (test code = MCH) 36.1 pg 27.0-31.0 [place] 768472-07-18 09:04:00 Test Item Value Reference Range Interpretation Comments MCHC (test code = MCHC) 33.9 32.0-36.0 [place] 768472-07-18 09:04:00 Test Item Value Reference Range Interpretation Comments RDW (test code = RDW) 23.9 11.5-14.5 [place] 768472-07-18 09:04:00 Test Item Value Reference Range Interpretation Comments Platelet (test code = Platelet) 133 133-450 [place] 768472-07-18 09:04:00 Test Item Value Reference Range Interpretation Comments MPV (test code = MPV) 8.1 7.4-10.4 [place] 768472-07-18 09:04:00 Test Item Value Reference Range Interpretation Comments Segs (test code = Segs) 60.8 45.0-75.0 [place] [address]-07-18 09:04:00 Test Item Value Reference Range Interpretation Comments Lymphocytes (test code = Lymphocytes) 22.3 20.0-40.0 [place] [address]-07-18 09:04:00 Test Item Value Reference Range Interpretation Comments Monocytes (test code = Monocytes) 13.9 2.0-12.0 [place] 768472-07-18 09:04:00 Test Item Value Reference Range Interpretation Comments Eosinophils (test code = 2.6 See_Comment [A utomated message] The Eosinophils) system which ge nerated this result tra nsmitted reference range : <=4.0. The reference r samantha was not used to int erpret this result as normal/abnormal . [place] 768472-07-18 09:04:00 Test Item Value Reference Range Interpretation Comments Basophils (test code = 0.4 See_Comment [Aut omated message] The Basophils) system which ge nerated this result tra nsmitted reference range : <=1.0. The reference r samantha was not used to int erpret this result as normal/abnormal . [facility] CenterWskupqoKYMQTFLLJH4783-47-12 09:04:00 Test Item Value Reference Range Interpretation Comments Neutrophils # (test code = Neutrophils 2.2 1.5-8.1 #) [place] 768472-07-18 09:04:00 Test Item Value Reference Range Interpretation Comments Lymphocytes # (test code = Lymphocytes 0.8 1.0-5.5 #) [place] [address]-07-18 09:04:00 Test Item Value Reference Range Interpretation Comments Monocytes # (test code 0.5 See_Comment [Aut omated message] The = Monocytes #) system which generated this result tra nsmitted reference range : <=0.8. The reference r samantha was not used to int erpret this result as normal/abnormal . [facility] CampusCdksgzqKVRMJKSJKC5186-98-86 09:04:00 Test Item Value Reference Range Interpretation Comments Eosinophils # (test code 0.1 See_Comment [A utomated message] The = Eosinophils #) system whic h generated this result tra nsmitted reference range : <=0.5. The reference r samantha was not used to int erpret this result as normal/abnormal . [facility] CenterYdcvgouFAOYGEMJWF1915-61-15 09:04:00 Test Item Value Reference Range Interpretation Comments Macrocyte (test code = 1+ *ABN*(12/15/21 Macrocyte) 4:04 AM) [facility] CampusYmlwwxwTGNFCXHAMA1919-92-97 09:04:00 Test Item Value Reference Range Interpretation Comments C-REACTIVE PROTEIN (test code = 25.1 C-REACTIVE PROTEIN) [facility] CampusRbpqfxaEENCROSNKC8954-89-06 09:04:00 Test Item Value Reference Range Interpretation Comments Vanco Lvl (test code = Vanco Lvl) 15.2 [facility] [id number] 09:04:00 Test Item Value Reference Range Interpretation Comments Glucose Lvl (test code = Glucose Lvl) 59 70-99 [facility]2022-07-18 09:04:00 Test Item Value Reference Range Interpretation Comments BUN (test code = BUN) 41 7-22 [facility]2022-07-18 09:04:00 Test Item Value Reference Range Interpretation Comments Creatinine Lvl (test code = Creatinine 7.00 0.50-1.40 Lvl) [place] 117152-07-18 09:04:00 Test Item Value Reference Range Interpretation Comments Sodium Lvl (test code = Sodium Lvl) 134 135-145 [place] 117152-07-18 09:04:00 Test Item Value Reference Range Interpretation Comments Potassium Lvl (test code = Potassium 4.0 3.5-5.1 Lvl) [place] 117152-07-18 09:04:00 Test Item Value Reference Range Interpretation Comments Chloride Lvl (test code = Chloride Lvl) 102 95-109 [place] 117152-07-18 09:04:00 Test Item Value Reference Range Interpretation Comments CO2 (test code = CO2) 25 24-32 [facility] [id number] 09:04:00 Test Item Value Reference Range Interpretation Comments Calcium Lvl (test code = Calcium Lvl) 9.1 8.5-10.5 [facility] [id number] 09:04:00 Test Item Value Reference Range Interpretation Comments Total Protein (test code = Total 6.2 6.4-8.4 Protein) [facility] [id number] 09:04:00 Test Item Value Reference Range Interpretation Comments Albumin Lvl (test code = Albumin Lvl) 2.8 3.5-5.0 [facility] [id number] 09:04:00 Test Item Value Reference Range Interpretation Comments ALT (test code = ALT) 78 See_Comment [Auto mated message] The system which ge nerated this result transmit swathi reference range : <=65. The reference range was not used to interpr et this result as deny l/abnormal. [facility] [id number] 09:04:00 Test Item Value Reference Range Interpretation Comments AST (test code = AST) 117 See_Comment [Auto mated message] The system which ge nerated this result transmit swathi reference range : <=37. The reference range was not used to interpr et this result as deny l/abnormal. [facility] [id number] 09:04:00 Test Item Value Reference Range Interpretation Comments Alk Phos (test code = Alk Phos) 251 39-136 [facility] [id number] 09:04:00 Test Item Value Reference Range Interpretation Comments Bili Total (test code = Bili Total) 0.9 0.2-1.3 [facility] [id number] 09:04:00 Test Item Value Reference Range Interpretation Comments AGAP (test code = AGAP) 11.0 10.0-20.0 [facility] [id number] 09:04:00 Test Item Value Reference Range Interpretation Comments B/C Ratio (test code = B/C Ratio) 6 1 6-25 [facility] [id number] 09:04:00 Test Item Value Reference Range Interpretation Comments Globulin (test code = Globulin) 3.4 2.7-4.2 [facility]2022-07-18 09:04:00 Test Item Value Reference Range Interpretation Comments A/G Ratio (test code = A/G Ratio) 0.8 1 0.7-1.6 [facility]2022-07-18 09:04:00 Test Item Value Reference Range Interpretation Comments eGFR (test code = eGFR) 8 [facility] CenterYsanrmmIBRRPVHAGB6239-77-45 09:04:00 Test Item Value Reference Range Interpretation Comments D-Dimer (test code = D-Dimer) 3.03 [place] 768472-07-18 09:04:00 Test Item Value Reference Range Interpretation Comments WBC (test code = WBC) 3.6 3.7-10.4 [place] 768472-07-18 09:04:00 Test Item Value Reference Range Interpretation Comments RBC (test code = RBC) 2.07 4.70-6.10 [place] 768472-07-18 09:04:00 Test Item Value Reference Range Interpretation Comments Hgb (test code = Hgb) 7.5 14.0-18.0 [place] 768472-07-18 09:04:00 Test Item Value Reference Range Interpretation Comments Hct (test code = Hct) 22.0 42.0-54.0 [place] 768472-07-18 09:04:00 Test Item Value Reference Range Interpretation Comments MCV (test code = MCV) 106.3 80.0-94.0 [place] 768472-07-18 09:04:00 Test Item Value Reference Range Interpretation Comments MCH (test code = MCH) 36.1 pg 27.0-31.0 [facility] CenterXhzfkesJOJWKJONCL2732-01-24 09:04:00 Test Item Value Reference Range Interpretation Comments MCHC (test code = MCHC) 33.9 32.0-36.0 [place] 768472-07-18 09:04:00 Test Item Value Reference Range Interpretation Comments RDW (test code = RDW) 23.9 11.5-14.5 [place] 768472-07-18 09:04:00 Test Item Value Reference Range Interpretation Comments Platelet (test code = Platelet) 133 133-450 [facility] CenterWryehqeBLASEVDYSX4312-35-91 09:04:00 Test Item Value Reference Range Interpretation Comments MPV (test code = MPV) 8.1 7.4-10.4 [place] 768472-07-18 09:04:00 Test Item Value Reference Range Interpretation Comments Segs (test code = Segs) 60.8 45.0-75.0 [place] 768472-07-18 09:04:00 Test Item Value Reference Range Interpretation Comments Lymphocytes (test code = Lymphocytes) 22.3 20.0-40.0 [place] 768472-07-18 09:04:00 Test Item Value Reference Range Interpretation Comments Monocytes (test code = Monocytes) 13.9 2.0-12.0 [place] [address]-07-18 09:04:00 Test Item Value Reference Range Interpretation Comments Eosinophils (test code = 2.6 See_Comment [A utomated message] The Eosinophils) system which ge nerated this result tra nsmitted reference range : <=4.0. The reference r samantha was not used to int erpret this result as normal/abnormal . [place] [address]-07-18 09:04:00 Test Item Value Reference Range Interpretation Comments Basophils (test code = 0.4 See_Comment [Aut omated message] The Basophils) system which ge nerated this result tra nsmitted reference range : <=1.0. The reference r samantha was not used to int erpret this result as normal/abnormal . [place] 768472-07-18 09:04:00 Test Item Value Reference Range Interpretation Comments Neutrophils # (test code = Neutrophils 2.2 1.5-8.1 #) [place] 768472-07-18 09:04:00 Test Item Value Reference Range Interpretation Comments Lymphocytes # (test code = Lymphocytes 0.8 1.0-5.5 #) [place] [address]-07-18 09:04:00 Test Item Value Reference Range Interpretation Comments Monocytes # (test code 0.5 See_Comment [Aut omated message] The = Monocytes #) system which generated this result tra nsmitted reference range : <=0.8. The reference r samantha was not used to int erpret this result as normal/abnormal . [place] [address]-07-18 09:04:00 Test Item Value Reference Range Interpretation Comments Eosinophils # (test code 0.1 See_Comment [A utomated message] The = Eosinophils #) system whic h generated this result tra nsmitted reference range : <=0.5. The reference r samantha was not used to int erpret this result as normal/abnormal . [facility]wnGUPCNXURKF5363-[facility]-14 09:04:00 Test Item Value Reference Range Interpretation Comments Macrocyte (test code = 1+ *ABN*(12/15/21 Macrocyte) 4:04 AM) [facility] CampusVfbjorjALTVKTDWMA5433-35-78 09:04:00 Test Item Value Reference Range Interpretation Comments C-REACTIVE PROTEIN (test code = 25.1 C-REACTIVE PROTEIN) [facility] CampusZnjeyfcDCZFWVUTHC8806-18-06 09:04:00 Test Item Value Reference Range Interpretation Comments Vanco Lvl (test code = Vanco Lvl) 15.2 [facility]2022-07-18 09:04:00 Test Item Value Reference Range Interpretation Comments Glucose Lvl (test code = Glucose Lvl) 59 70-99 [facility]2022-07-18 09:04:00 Test Item Value Reference Range Interpretation Comments BUN (test code = BUN) 41 7-22 [place] 117152-07-18 09:04:00 Test Item Value Reference Range Interpretation Comments Creatinine Lvl (test code = Creatinine 7.00 0.50-1.40 Lvl) [facility]2022-07-18 09:04:00 Test Item Value Reference Range Interpretation Comments Sodium Lvl (test code = Sodium Lvl) 134 135-145 [facility]2022-07-18 09:04:00 Test Item Value Reference Range Interpretation Comments Potassium Lvl (test code = Potassium 4.0 3.5-5.1 Lvl) [facility]2022-07-18 09:04:00 Test Item Value Reference Range Interpretation Comments Chloride Lvl (test code = Chloride Lvl) 102 95-109 [facility]2022-07-18 09:04:00 Test Item Value Reference Range Interpretation Comments CO2 (test code = CO2) 25 24-32 [place] 117152-07-18 09:04:00 Test Item Value Reference Range Interpretation Comments Calcium Lvl (test code = Calcium Lvl) 9.1 8.5-10.5 [facility]2022-07-18 09:04:00 Test Item Value Reference Range Interpretation Comments Total Protein (test code = Total 6.2 6.4-8.4 Protein) [facility] [id number] 09:04:00 Test Item Value Reference Range Interpretation Comments Albumin Lvl (test code = Albumin Lvl) 2.8 3.5-5.0 [facility] [id number] 09:04:00 Test Item Value Reference Range Interpretation Comments ALT (test code = ALT) 78 See_Comment [Auto mated message] The system which ge nerated this result transmit swathi reference range : <=65. The reference range was not used to interpr et this result as deny l/abnormal. [facility] [id number] 09:04:00 Test Item Value Reference Range Interpretation Comments AST (test code = AST) 117 See_Comment [Auto mated message] The system which ge nerated this result transmit swathi reference range : <=37. The reference range was not used to interpr et this result as deny l/abnormal. [facility] [id number] 09:04:00 Test Item Value Reference Range Interpretation Comments Alk Phos (test code = Alk Phos) 251 39-136 [facility] [id number] 09:04:00 Test Item Value Reference Range Interpretation Comments Bili Total (test code = Bili Total) 0.9 0.2-1.3 [facility] [id number] 09:04:00 Test Item Value Reference Range Interpretation Comments AGAP (test code = AGAP) 11.0 10.0-20.0 [facility] [id number] 09:04:00 Test Item Value Reference Range Interpretation Comments B/C Ratio (test code = B/C Ratio) 6 1 6-25 [facility] [id number] 09:04:00 Test Item Value Reference Range Interpretation Comments Globulin (test code = Globulin) 3.4 2.7-4.2 [facility] [id number] 09:04:00 Test Item Value Reference Range Interpretation Comments A/G Ratio (test code = A/G Ratio) 0.8 1 0.7-1.6 [facility] [id number] 09:04:00 Test Item Value Reference Range Interpretation Comments eGFR (test code = eGFR) 8 [facility] CenterGitveitNGZOAOWIZV1800-46-65 09:04:00 Test Item Value Reference Range Interpretation Comments D-Dimer (test code = D-Dimer) 3.03 [facility] CenterFyahacfHWIQQQKXNQ7592-37-15 09:04:00 Test Item Value Reference Range Interpretation Comments WBC (test code = WBC) 3.6 3.7-10.4 [facility] CenterKoyidujJQJFCZZQZL3428-64-49 09:04:00 Test Item Value Reference Range Interpretation Comments RBC (test code = RBC) 2.07 4.70-6.10 [facility] CenterVblawrjUBZFOYHZQV2558-82-22 09:04:00 Test Item Value Reference Range Interpretation Comments Hgb (test code = Hgb) 7.5 14.0-18.0 [facility] CenterQuoumgfDAFJFBDEAP7559-66-05 09:04:00 Test Item Value Reference Range Interpretation Comments Hct (test code = Hct) 22.0 42.0-54.0 [facility] CenterMhvrivzNSIZFVAMPE7802-42-96 09:04:00 Test Item Value Reference Range Interpretation Comments MCV (test code = MCV) 106.3 80.0-94.0 [facility] CenterYuhvygmGISXDPAOEV4386-58-59 09:04:00 Test Item Value Reference Range Interpretation Comments MCH (test code = MCH) 36.1 pg 27.0-31.0 [facility] CenterXscxlmsOQMBTEVZIC0645-55-17 09:04:00 Test Item Value Reference Range Interpretation Comments MCHC (test code = MCHC) 33.9 32.0-36.0 [facility] CenterJxnkywjVCHQMSQYXH9489-99-88 09:04:00 Test Item Value Reference Range Interpretation Comments RDW (test code = RDW) 23.9 11.5-14.5 [place] 768472-07-18 09:04:00 Test Item Value Reference Range Interpretation Comments Platelet (test code = Platelet) 133 133-450 [facility] CenterHuxdeieTNONFYGCFH4340-87-30 09:04:00 Test Item Value Reference Range Interpretation Comments MPV (test code = MPV) 8.1 7.4-10.4 [facility] CenterInknxysYHCAFEHSPH0507-06-39 09:04:00 Test Item Value Reference Range Interpretation Comments Segs (test code = Segs) 60.8 45.0-75.0 [facility] CenterCwtasunIETBFOFPWU6777-37-61 09:04:00 Test Item Value Reference Range Interpretation Comments Lymphocytes (test code = Lymphocytes) 22.3 20.0-40.0 [place] 768472-07-18 09:04:00 Test Item Value Reference Range Interpretation Comments Monocytes (test code = Monocytes) 13.9 2.0-12.0 [place] [address]-07-18 09:04:00 Test Item Value Reference Range Interpretation Comments Eosinophils (test code = 2.6 See_Comment [A utomated message] The Eosinophils) system which ge nerated this result tra nsmitted reference range : <=4.0. The reference r samantha was not used to int erpret this result as normal/abnormal . [place] [address]-07-18 09:04:00 Test Item Value Reference Range Interpretation Comments Basophils (test code = 0.4 See_Comment [Aut omated message] The Basophils) system which ge nerated this result tra nsmitted reference range : <=1.0. The reference r samantha was not used to int erpret this result as normal/abnormal . [facility] CenterOefvsteKXPFMZPSUF6167-00-33 09:04:00 Test Item Value Reference Range Interpretation Comments Neutrophils # (test code = Neutrophils 2.2 1.5-8.1 #) [place] 768472-07-18 09:04:00 Test Item Value Reference Range Interpretation Comments Lymphocytes # (test code = Lymphocytes 0.8 1.0-5.5 #) [place] 768472-07-18 09:04:00 Test Item Value Reference Range Interpretation Comments Monocytes # (test code 0.5 See_Comment [Aut omated message] The = Monocytes #) system which generated this result tra nsmitted reference range : <=0.8. The reference r samantha was not used to int erpret this result as normal/abnormal . [place] [address]-07-18 09:04:00 Test Item Value Reference Range Interpretation Comments Eosinophils # (test code 0.1 See_Comment [A utomated message] The = Eosinophils #) system whic h generated this result tra nsmitted reference range : <=0.5. The reference r samantha was not used to int erpret this result as normal/abnormal . [place] 768472-07-18 09:04:00 Test Item Value Reference Range Interpretation Comments Macrocyte (test code = 1+ *ABN*(12/15/21 Macrocyte) 4:04 AM) [facility] CampusCclwhcsNQSKPAVBHI9229-79-14 09:04:00 Test Item Value Reference Range Interpretation Comments C-REACTIVE PROTEIN (test code = 25.1 C-REACTIVE PROTEIN) [facility] CampusMutzqndYDMIHZPANW9974-17-58 09:04:00 Test Item Value Reference Range Interpretation Comments Vanco Lvl (test code = Vanco Lvl) 15.2 [facility]2022-07-18 09:04:00 Test Item Value Reference Range Interpretation Comments Glucose Lvl (test code = Glucose Lvl) 59 70-99 [facility]2022-07-18 09:04:00 Test Item Value Reference Range Interpretation Comments BUN (test code = BUN) 41 -22 [facility]2022-07-18 09:04:00 Test Item Value Reference Range Interpretation Comments Creatinine Lvl (test code = Creatinine 7.00 0.50-1.40 Lvl) [facility]2022-07-18 09:04:00 Test Item Value Reference Range Interpretation Comments Sodium Lvl (test code = Sodium Lvl) 134 135-145 [facility]2022-07-18 09:04:00 Test Item Value Reference Range Interpretation Comments Potassium Lvl (test code = Potassium 4.0 3.5-5.1 Lvl) [facility]2022-07-18 09:04:00 Test Item Value Reference Range Interpretation Comments Chloride Lvl (test code = Chloride Lvl) 102 95-109 [facility]2022-07-18 09:04:00 Test Item Value Reference Range Interpretation Comments CO2 (test code = CO2) 25 24-32 [facility]2022-07-18 09:04:00 Test Item Value Reference Range Interpretation Comments Calcium Lvl (test code = Calcium Lvl) 9.1 8.5-10.5 [facility]2022-07-18 09:04:00 Test Item Value Reference Range Interpretation Comments Total Protein (test code = Total 6.2 6.4-8.4 Protein) [facility]2022-07-18 09:04:00 Test Item Value Reference Range Interpretation Comments Albumin Lvl (test code = Albumin Lvl) 2.8 3.5-5.0 [facility] [id number] 09:04:00 Test Item Value Reference Range Interpretation Comments ALT (test code = ALT) 78 See_Comment [Auto mated message] The system which ge nerated this result transmit swathi reference range : <=65. The reference range was not used to interpr et this result as deny l/abnormal. [facility] [id number] 09:04:00 Test Item Value Reference Range Interpretation Comments AST (test code = AST) 117 See_Comment [Auto mated message] The system which ge nerated this result transmit swathi reference range : <=37. The reference range was not used to interpr et this result as deny l/abnormal. [facility] [id number] 09:04:00 Test Item Value Reference Range Interpretation Comments Alk Phos (test code = Alk Phos) 251 39-136 [facility] [id number] 09:04:00 Test Item Value Reference Range Interpretation Comments Bili Total (test code = Bili Total) 0.9 0.2-1.3 [facility] [id number] 09:04:00 Test Item Value Reference Range Interpretation Comments AGAP (test code = AGAP) 11.0 10.0-20.0 [facility] [id number] 09:04:00 Test Item Value Reference Range Interpretation Comments B/C Ratio (test code = B/C Ratio) 6 1 6-25 [facility] [id number] 09:04:00 Test Item Value Reference Range Interpretation Comments Globulin (test code = Globulin) 3.4 2.7-4.2 [facility] [id number] 09:04:00 Test Item Value Reference Range Interpretation Comments A/G Ratio (test code = A/G Ratio) 0.8 1 0.7-1.6 [facility] [id number] 09:04:00 Test Item Value Reference Range Interpretation Comments eGFR (test code = eGFR) 8 [facility] CenterHoobqszBAWIIPKTHK2702-06-91 09:04:00 Test Item Value Reference Range Interpretation Comments D-Dimer (test code = D-Dimer) 3.03 [facility] CenterUteqmpwDGNCWMHXMT1911-72-73 09:04:00 Test Item Value Reference Range Interpretation Comments WBC (test code = WBC) 3.6 3.7-10.4 [place] 768472-07-18 09:04:00 Test Item Value Reference Range Interpretation Comments RBC (test code = RBC) 2.07 4.70-6.10 [place] 768472-07-18 09:04:00 Test Item Value Reference Range Interpretation Comments Hgb (test code = Hgb) 7.5 14.0-18.0 [place] 768472-07-18 09:04:00 Test Item Value Reference Range Interpretation Comments Hct (test code = Hct) 22.0 42.0-54.0 [place] 768472-07-18 09:04:00 Test Item Value Reference Range Interpretation Comments MCV (test code = MCV) 106.3 80.0-94.0 [place] 768472-07-18 09:04:00 Test Item Value Reference Range Interpretation Comments MCH (test code = MCH) 36.1 pg 27.0-31.0 [place] 768472-07-18 09:04:00 Test Item Value Reference Range Interpretation Comments MCHC (test code = MCHC) 33.9 32.0-36.0 [facility] CenterRhmpifuHNWJZHOBEY2109-18-39 09:04:00 Test Item Value Reference Range Interpretation Comments RDW (test code = RDW) 23.9 11.5-14.5 [place] 768472-07-18 09:04:00 Test Item Value Reference Range Interpretation Comments Platelet (test code = Platelet) 133 133-450 [facility] CenterCgxzipxNPSQYPSAUY9309-97-82 09:04:00 Test Item Value Reference Range Interpretation Comments MPV (test code = MPV) 8.1 7.4-10.4 [place] 768472-07-18 09:04:00 Test Item Value Reference Range Interpretation Comments Segs (test code = Segs) 60.8 45.0-75.0 [place] 768472-07-18 09:04:00 Test Item Value Reference Range Interpretation Comments Lymphocytes (test code = Lymphocytes) 22.3 20.0-40.0 [place] 768472-07-18 09:04:00 Test Item Value Reference Range Interpretation Comments Monocytes (test code = Monocytes) 13.9 2.0-12.0 [facility] CenterVgeblbpPVTDBFXJAQ1909-57-84 09:04:00 Test Item Value Reference Range Interpretation Comments Eosinophils (test code = 2.6 See_Comment [A utomated message] The Eosinophils) system which ge nerated this result tra nsmitted reference range : <=4.0. The reference r samantha was not used to int erpret this result as normal/abnormal . [facility] CenterAhhbqphMAVUPNMDIO9345-06-32 09:04:00 Test Item Value Reference Range Interpretation Comments Basophils (test code = 0.4 See_Comment [Aut omated message] The Basophils) system which ge nerated this result tra nsmitted reference range : <=1.0. The reference r samantha was not used to int erpret this result as normal/abnormal . [facility] CenterWdyxtdiVDGZNBLNOR6136-05-06 09:04:00 Test Item Value Reference Range Interpretation Comments Neutrophils # (test code = Neutrophils 2.2 1.5-8.1 #) [facility] CenterEqitasvTCEXHBADFP3432-67-28 09:04:00 Test Item Value Reference Range Interpretation Comments Lymphocytes # (test code = Lymphocytes 0.8 1.0-5.5 #) [facility] CenterInofuklSENINDKHLE4213-83-70 09:04:00 Test Item Value Reference Range Interpretation Comments Monocytes # (test code 0.5 See_Comment [Aut omated message] The = Monocytes #) system which generated this result tra nsmitted reference range : <=0.8. The reference r samantha was not used to int erpret this result as normal/abnormal . [facility] CenterDupytttMDIHSWXCNH5574-25-02 09:04:00 Test Item Value Reference Range Interpretation Comments Eosinophils # (test code 0.1 See_Comment [A utomated message] The = Eosinophils #) system whic h generated this result tra nsmitted reference range : <=0.5. The reference r samantha was not used to int erpret this result as normal/abnormal . [facility] CenterUxcxupfEIQBBNAMQK8891-66-95 09:04:00 Test Item Value Reference Range Interpretation Comments Macrocyte (test code = 1+ *ABN*(12/15/21 Macrocyte) 4:04 AM) [facility] CampusTcabgmxXXZUXVZGFX8049-52-50 09:04:00 Test Item Value Reference Range Interpretation Comments C-REACTIVE PROTEIN (test code = 25.1 C-REACTIVE PROTEIN) [facility] CampusYkoxfdhKSIXPQGSNE8273-97-95 09:04:00 Test Item Value Reference Range Interpretation Comments Vanco Lvl (test code = Vanco Lvl) 15.2 [facility] [id number] 00:29:00 Test Item Value Reference Range Interpretation Comments MRSA by PCR (test Negative (12/14/21 7:29 code = MRSA by PCR) PM) [facility] CenterannBACT[facility] - [id number] 00:29:00 Test Item Value Reference Range Interpretation Comments MRSA by PCR (test Negative (12/14/21 7:29 code = MRSA by PCR) PM) [facility] CenterannBACTERIAL - [id number] 00:29:00 Test Item Value Reference Range Interpretation Comments MRSA by PCR (test Negative (12/14/21 7:29 code = MRSA by PCR) PM) [facility]annBACT[facility] - [id number] 00:29:00 Test Item Value Reference Range Interpretation Comments MRSA by PCR (test Negative (12/14/21 7:29 code = MRSA by PCR) PM) [facility] CenterannBACTERIAL - [id number] 00:29:00 Test Item Value Reference Range Interpretation Comments MRSA by PCR (test Negative (12/14/21 7:29 code = MRSA by PCR) PM) [facility] CenterannIDLECULAR [id number] 23:56:00 Test Item Value Reference Range Interpretation Comments Source Respiratory Nasophrngl Swb Panel PCR (test code = *NA*(12/14/21 6:56 PM) Source Respiratory Panel PCR) [facility] CenterannIDLECULAR [id number] 23:56:00 Test Item Value Reference Range Interpretation Comments Influenza A PCR (test Negative (12/14/21 6:56 code = Influenza A PCR) PM) [facility] CenterannIDLECULAR WGQFNVGYZV3908-06-20 23:56:00 Test Item Value Reference Range Interpretation Comments Influenza B PCR (test Negative (12/14/21 6:56 code = Influenza B PCR) PM) [facility] CenterannIDLECULAR [id number] 23:56:00 Test Item Value Reference Range Interpretation Comments RSV PCR (test code = Negative (12/14/21 6:56 RSV PCR) PM) [facility] CenterannIDLECULAR [id number] 23:56:00 Test Item Value Reference Range Interpretation Comments Source Respiratory Nasophrngl Swb Panel PCR (test code = *NA*(12/14/21 6:56 PM) Source Respiratory Panel PCR) [facility]annIDLE[facility]ULAR [id number] 23:56:00 Test Item Value Reference Range Interpretation Comments Influenza A PCR (test Negative (12/14/21 6:56 code = Influenza A PCR) PM) [facility]annIDLE[facility]ULAR [id number] 23:56:00 Test Item Value Reference Range Interpretation Comments Influenza B PCR (test Negative (12/14/21 6:56 code = Influenza B PCR) PM) [facility]annIDLECPRE[facility] [id number] 23:56:00 Test Item Value Reference Range Interpretation Comments RSV PCR (test code = Negative (12/14/21 6:56 RSV PCR) PM) [facility] [id number] 23:56:00 Test Item Value Reference Range Interpretation Comments Source Respiratory Nasophrngl Swb Panel PCR (test code = *NA*(12/14/21 6:56 PM) Source Respiratory Panel PCR) [facility] [id number] 23:56:00 Test Item Value Reference Range Interpretation Comments Influenza A PCR (test Negative (12/14/21 6:56 code = Influenza A PCR) PM) [facility]annIDLECPRE[facility] [id number] 23:56:00 Test Item Value Reference Range Interpretation Comments Influenza B PCR (test Negative (12/14/21 6:56 code = Influenza B PCR) PM) [facility]annIDLECPREMI[facility] [id number] 23:56:00 Test Item Value Reference Range Interpretation Comments RSV PCR (test code = Negative (12/14/21 6:56 RSV PCR) PM) [facility]annM[facility] [id number] 23:56:00 Test Item Value Reference Range Interpretation Comments Source Respiratory Nasophrngl Swb Panel PCR (test code = *NA*(12/14/21 6:56 PM) Source Respiratory Panel PCR) [facility]annM[facility] [id number] 23:56:00 Test Item Value Reference Range Interpretation Comments Influenza A PCR (test Negative (12/14/21 6:56 code = Influenza A PCR) PM) [facility] CenterannIDLECULAR [id number] 23:56:00 Test Item Value Reference Range Interpretation Comments Influenza B PCR (test Negative (12/14/21 6:56 code = Influenza B PCR) PM) [facility] [id number] 23:56:00 Test Item Value Reference Range Interpretation Comments RSV PCR (test code = Negative (12/14/21 6:56 RSV PCR) PM) [facility] [id number] 23:56:00 Test Item Value Reference Range Interpretation Comments Source Respiratory Nasophrngl Swb Panel PCR (test code = *NA*(12/14/21 6:56 PM) Source Respiratory Panel PCR) [facility] [id number] 23:56:00 Test Item Value Reference Range Interpretation Comments Influenza A PCR (test Negative (12/14/21 6:56 code = Influenza A PCR) PM) [facility] [id number] 23:56:00 Test Item Value Reference Range Interpretation Comments Influenza B PCR (test Negative (12/14/21 6:56 code = Influenza B PCR) PM) [facility] [id number] 23:56:00 Test Item Value Reference Range Interpretation Comments RSV PCR (test code = Negative (12/14/21 6:56 RSV PCR) PM) [facility] CampusCloud.com [id number] 23:55:00 Test Item Value Reference Range Interpretation Comments BNP (test code = BNP) 1994 [facility] CenterLaguo [id number] 23:55:00 Test Item Value Reference Range Interpretation Comments Procalcitonin Lvl (test 0.80 See_Comment [Au tomated message] code = Procalcitonin Lvl) Th e system which generated this result transmitted ref erence range: <=0.10. The reference range was not used to interpr et this result as normal/abnormal . [facility] CampusCloud.comAC [id number] 23:55:00 Test Item Value Reference Range Interpretation Comments BNP (test code = BNP) 1994 [facility] CenterL[facility] [id number] 23:55:00 Test Item Value Reference Range Interpretation Comments Procalcitonin Lvl (test 0.80 See_Comment [Au tomated message] code = Procalcitonin Lvl) e system which generated this result transmitted ref erence range: <=0.10. The reference range was not used to interpr et this result as normal/abnormal . [facility] [employer]2022-07-17 23:55:00 Test Item Value Reference Range Interpretation Comments BNP (test code = BNP) 1994 [facility] [id number] 23:55:00 Test Item Value Reference Range Interpretation Comments Procalcitonin Lvl (test 0.80 See_Comment [Au tomated message] code = Procalcitonin Lvl) e system which generated this result transmitted ref erence range: <=0.10. The reference range was not used to interpr et this result as normal/abnormal . [facility] [employer]2022-07-17 23:55:00 Test Item Value Reference Range Interpretation Comments BNP (test code = BNP) 1994 [facility] CenterL[facility] [id number] 23:55:00 Test Item Value Reference Range Interpretation Comments Procalcitonin Lvl (test 0.80 See_Comment [Au tomated message] code = Procalcitonin Lvl) e system which generated this result transmitted ref erence range: <=0.10. The reference range was not used to interpr et this result as normal/abnormal . [facility] [employer]2022-07-17 23:55:00 Test Item Value Reference Range Interpretation Comments BNP (test code = BNP) 1994 [facility] [id number] 23:55:00 Test Item Value Reference Range Interpretation Comments Procalcitonin Lvl (test 0.80 See_Comment [Au tomated message] code = Procalcitonin Lvl) e system which generated this result transmitted ref erence range: <=0.10. The reference range was not used to interpr et this result as normal/abnormal . [facility] [employer]2022-07-17 21:26:00 Test Item Value Reference Range Interpretation Comments HS Troponin I 1 Hr (test code = HS 389 Troponin I 1 Hr) [facility] 21:26:00 Test Item Value Reference Range Interpretation Comments HS Troponin I 0 to 1 Hour Delta (test 49 1 code = HS Troponin I 0 to 1 Hour Delta) [facility] CenterannCAREstatelyAC [id number] 21:26:00 Test Item Value Reference Range Interpretation Comments HS Troponin I 1 Hr (test code = HS 389 Troponin I 1 Hr) [facility] AddFleetannCAREstatelyAC [id number] 21:26:00 Test Item Value Reference Range Interpretation Comments HS Troponin I 0 to 1 Hour Delta (test 49 1 code = HS Troponin I 0 to 1 Hour Delta) [facility] CenterannCloud.comAC [id number] 21:26:00 Test Item Value Reference Range Interpretation Comments HS Troponin I 1 Hr (test code = HS 389 Troponin I 1 Hr) [facility] AddFleetannCAREstatelyAC [id number] 21:26:00 Test Item Value Reference Range Interpretation Comments HS Troponin I 0 to 1 Hour Delta (test 49 1 code = HS Troponin I 0 to 1 Hour Delta) [facility] Centeri-design MultimediaAC [id number] 21:26:00 Test Item Value Reference Range Interpretation Comments HS Troponin I 1 Hr (test code = HS 389 Troponin I 1 Hr) [facility] Centeri-design MultimediaAC [id number] 21:26:00 Test Item Value Reference Range Interpretation Comments HS Troponin I 0 to 1 Hour Delta (test 49 1 code = HS Troponin I 0 to 1 Hour Delta) [facility] Centeri-design MultimediaAC [id number] 21:26:00 Test Item Value Reference Range Interpretation Comments HS Troponin I 1 Hr (test code = HS 389 Troponin I 1 Hr) [facility] [employer] [id number] 21:26:00 Test Item Value Reference Range Interpretation Comments HS Troponin I 0 to 1 Hour Delta (test 49 1 code = HS Troponin I 0 to 1 Hour Delta) [facility] CenterLegal [facility] [id number] 20:10:00 Test Item Value Reference Range Interpretation Comments HS Troponin I Baseline (test code = HS 340 Troponin I Baseline) [facility] [id number] 20:10:00 Test Item Value Reference Range Interpretation Comments Glucose Lvl (test code = Glucose Lvl) 60 70-99 [facility] [id number] 20:10:00 Test Item Value Reference Range Interpretation Comments BUN (test code = BUN) 35 7-22 [facility] [id number] 20:10:00 Test Item Value Reference Range Interpretation Comments Creatinine Lvl (test code = Creatinine 6.10 0.50-1.40 Lvl) [place] 117152-07-17 20:10:00 Test Item Value Reference Range Interpretation Comments Sodium Lvl (test code = Sodium Lvl) 139 135-145 [place] 117152-07-17 20:10:00 Test Item Value Reference Range Interpretation Comments Potassium Lvl (test code = Potassium 3.1 3.5-5.1 Lvl) [place] 117152-07-17 20:10:00 Test Item Value Reference Range Interpretation Comments Chloride Lvl (test code = Chloride Lvl) 105 95-109 [place] 117152-07-17 20:10:00 Test Item Value Reference Range Interpretation Comments CO2 (test code = CO2) 28 24-32 [place] 117152-07-17 20:10:00 Test Item Value Reference Range Interpretation Comments Calcium Lvl (test code = Calcium Lvl) 8.1 8.5-10.5 [place] 117152-07-17 20:10:00 Test Item Value Reference Range Interpretation Comments Total Protein (test code = Total 5.8 6.4-8.4 Protein) [place] 117152-07-17 20:10:00 Test Item Value Reference Range Interpretation Comments Albumin Lvl (test code = Albumin Lvl) 2.6 3.5-5.0 [place] 117152-07-17 20:10:00 Test Item Value Reference Range Interpretation Comments ALT (test code = ALT) 74 See_Comment [Auto mated message] The system which ge nerated this result transmit swathi reference range : <=65. The reference range was not used to interpr et this result as deny l/abnormal. [place] 117152-07-17 20:10:00 Test Item Value Reference Range Interpretation Comments AST (test code = AST) 117 See_Comment [Auto mated message] The system which ge nerated this result transmit swathi reference range : <=37. The reference range was not used to interpr et this result as deny l/abnormal. [place] 117152-07-17 20:10:00 Test Item Value Reference Range Interpretation Comments Alk Phos (test code = Alk Phos) 241 39-136 [facility] [id number] 20:10:00 Test Item Value Reference Range Interpretation Comments Bili Total (test code = Bili Total) 0.8 0.2-1.3 [facility]2022-07-17 20:10:00 Test Item Value Reference Range Interpretation Comments AGAP (test code = AGAP) 9.1 10.0-20.0 [facility]2022-07-17 20:10:00 Test Item Value Reference Range Interpretation Comments B/C Ratio (test code = B/C Ratio) 6 1 6-25 [facility]2022-07-17 20:10:00 Test Item Value Reference Range Interpretation Comments Globulin (test code = Globulin) 3.2 2.7-4.2 [facility]2022-07-17 20:10:00 Test Item Value Reference Range Interpretation Comments A/G Ratio (test code = A/G Ratio) 0.8 1 0.7-1.6 [facility]2022-07-17 20:10:00 Test Item Value Reference Range Interpretation Comments eGFR (test code = eGFR) 9 [facility] CenterXsxoeidAGKKNQXOJH3991-58-63 20:10:00 Test Item Value Reference Range Interpretation Comments WBC (test code = WBC) 4.3 3.7-10.4 [facility] CenterGagxogaJDIXVPLUYN8239-94-50 20:10:00 Test Item Value Reference Range Interpretation Comments RBC (test code = RBC) 2.17 4.70-6.10 [facility] CenterArhkcjeGYAWVYSECJ4691-34-15 20:10:00 Test Item Value Reference Range Interpretation Comments Hgb (test code = Hgb) 7.7 14.0-18.0 [facility] CenterIvorqgzCXIIGQNYMW9639-38-10 20:10:00 Test Item Value Reference Range Interpretation Comments Hct (test code = Hct) 22.9 42.0-54.0 [place] 768472-07-17 20:10:00 Test Item Value Reference Range Interpretation Comments MCV (test code = MCV) 105.9 80.0-94.0 [place] 768472-07-17 20:10:00 Test Item Value Reference Range Interpretation Comments MCH (test code = MCH) 35.4 pg 27.0-31.0 [place] 768472-07-17 20:10:00 Test Item Value Reference Range Interpretation Comments MCHC (test code = MCHC) 33.4 32.0-36.0 [facility] CenterRnqkaihDUOPHIFACV7121-57-40 20:10:00 Test Item Value Reference Range Interpretation Comments RDW (test code = RDW) 23.6 11.5-14.5 [facility] CenterAigwpyxDUISRSWZTP4071-59-18 20:10:00 Test Item Value Reference Range Interpretation Comments Platelet (test code = Platelet) 146 133-450 [place] 768472-07-17 20:10:00 Test Item Value Reference Range Interpretation Comments MPV (test code = MPV) 8.0 7.4-10.4 [place] 768472-07-17 20:10:00 Test Item Value Reference Range Interpretation Comments Plt Morph (test code = Normal (12/14/21 3:10 Plt Morph) PM) [place] 768472-07-17 20:10:00 Test Item Value Reference Range Interpretation Comments Segs (test code = Segs) 67.4 45.0-75.0 [facility] CenterWlpbawvVDFKJGHRPL1347-47-52 20:10:00 Test Item Value Reference Range Interpretation Comments Lymphocytes (test code = Lymphocytes) 12.8 20.0-40.0 [place] 768472-07-17 20:10:00 Test Item Value Reference Range Interpretation Comments Monocytes (test code = Monocytes) 15.1 2.0-12.0 [facility] CenterSwvoycuIFYKTXDEGQ7749-64-42 20:10:00 Test Item Value Reference Range Interpretation Comments Eosinophils (test code = 4.1 See_Comment [A utomated message] The Eosinophils) system which ge nerated this result tra nsmitted reference range : <=4.0. The reference r samantha was not used to int erpret this result as normal/abnormal . [place] 768472-07-17 20:10:00 Test Item Value Reference Range Interpretation Comments Basophils (test code = 0.6 See_Comment [Aut omated message] The Basophils) system which ge nerated this result tra nsmitted reference range : <=1.0. The reference r samantha was not used to int erpret this result as normal/abnormal . [place] 768472-07-17 20:10:00 Test Item Value Reference Range Interpretation Comments Neutrophils # (test code = Neutrophils 2.9 1.5-8.1 #) [facility]UVYWJGIIR5534[facility]89-94 20:10:00 Test Item Value Reference Range Interpretation Comments Lymphocytes # (test code = Lymphocytes 0.5 1.0-5.5 #) [facility] CenterThxkugaYCCMSMEDGS8315-64-30 20:10:00 Test Item Value Reference Range Interpretation Comments Monocytes # (test code 0.6 See_Comment [Aut omated message] The = Monocytes #) system which generated this result tra nsmitted reference range : <=0.8. The reference r samantha was not used to int erpret this result as normal/abnormal . [facility] CenterYaexkihAFFGKVCHXW6554-47-49 20:10:00 Test Item Value Reference Range Interpretation Comments Eosinophils # (test code 0.2 See_Comment [A utomated message] The = Eosinophils #) system whic h generated this result tra nsmitted reference range : <=0.5. The reference r samantha was not used to int erpret this result as normal/abnormal . [facility] CenterUkgpfahDALIQDRNOO0734-20-14 20:10:00 Test Item Value Reference Range Interpretation Comments Anisocyte (test code = 1+ *ABN*(12/14/21 Anisocyte) 3:10 PM) [facility] CenterXtmexzgKBTDMEASXA8588-50-74 20:10:00 Test Item Value Reference Range Interpretation Comments Macrocyte (test code = 1+ *ABN*(12/14/21 Macrocyte) 3:10 PM) [facility] CampusUmxpqpdNRLBAIVANV1252-09-68 20:10:00 Test Item Value Reference Range Interpretation Comments Coronavirus (COVID-19) Detected MANUEL (test code = 4*ABN*(12/14/21 3:10 Coronavirus (COVID-19) PM) MANUEL) [facility] CampusCARDIAC CJNTDRT3178-68-73 20:10:00 Test Item Value Reference Range Interpretation Comments HS Troponin I Baseline (test code = HS 340 Troponin I Baseline) [facility] WNLYB3973-46-33 20:10:00 Test Item Value Reference Range Interpretation Comments Glucose Lvl (test code = Glucose Lvl) 60 70-99 [facility]2022-07-17 20:10:00 Test Item Value Reference Range Interpretation Comments BUN (test code = BUN) 35 7-22 [facility] HKWDJ6776-33-07 20:10:00 Test Item Value Reference Range Interpretation Comments Creatinine Lvl (test code = Creatinine 6.10 0.50-1.40 Lvl) [place] 117152-07-17 20:10:00 Test Item Value Reference Range Interpretation Comments Sodium Lvl (test code = Sodium Lvl) 139 135-145 [place] 117152-07-17 20:10:00 Test Item Value Reference Range Interpretation Comments Potassium Lvl (test code = Potassium 3.1 3.5-5.1 Lvl) [place] 117152-07-17 20:10:00 Test Item Value Reference Range Interpretation Comments Chloride Lvl (test code = Chloride Lvl) 105 95-109 [place] 117152-07-17 20:10:00 Test Item Value Reference Range Interpretation Comments CO2 (test code = CO2) 28 24-32 [place] 117152-07-17 20:10:00 Test Item Value Reference Range Interpretation Comments Calcium Lvl (test code = Calcium Lvl) 8.1 8.5-10.5 [place] 117152-07-17 20:10:00 Test Item Value Reference Range Interpretation Comments Total Protein (test code = Total 5.8 6.4-8.4 Protein) [place] 117152-07-17 20:10:00 Test Item Value Reference Range Interpretation Comments Albumin Lvl (test code = Albumin Lvl) 2.6 3.5-5.0 [place] 117152-07-17 20:10:00 Test Item Value Reference Range Interpretation Comments ALT (test code = ALT) 74 See_Comment [Auto mated message] The system which [employer] nerated this result transmit swathi reference range : <=65. The reference range was not used to interpr et this result as deny l/abnormal. [place] 117152-07-17 20:10:00 Test Item Value Reference Range Interpretation Comments AST (test code = AST) 117 See_Comment [Auto mated message] The system which [employer] nerated this result transmit swathi reference range : <=37. The reference range was not used to interpr et this result as deny l/abnormal. [place] 117152-07-17 20:10:00 Test Item Value Reference Range Interpretation Comments Alk Phos (test code = Alk Phos) 241 39-136 [place] [address]-07-17 20:10:00 Test Item Value Reference Range Interpretation Comments Bili Total (test code = Bili Total) 0.8 0.2-1.3 [place] 117152-07-17 20:10:00 Test Item Value Reference Range Interpretation Comments AGAP (test code = AGAP) 9.1 10.0-20.0 [place] 117152-07-17 20:10:00 Test Item Value Reference Range Interpretation Comments B/C Ratio (test code = B/C Ratio) 6 1 6-25 [place] 117152-07-17 20:10:00 Test Item Value Reference Range Interpretation Comments Globulin (test code = Globulin) 3.2 2.7-4.2 [place] 117152-07-17 20:10:00 Test Item Value Reference Range Interpretation Comments A/G Ratio (test code = A/G Ratio) 0.8 1 0.7-1.6 [place] 117152-07-17 20:10:00 Test Item Value Reference Range Interpretation Comments eGFR (test code = eGFR) 9 [facility] CenterWexoelnMLZRQTYOOW0518-54-33 20:10:00 Test Item Value Reference Range Interpretation Comments WBC (test code = WBC) 4.3 3.7-10.4 [place] 768472-07-17 20:10:00 Test Item Value Reference Range Interpretation Comments RBC (test code = RBC) 2.17 4.70-6.10 [facility] CenterDpeeiciNAMGLRLMAJ9247-73-65 20:10:00 Test Item Value Reference Range Interpretation Comments Hgb (test code = Hgb) 7.7 14.0-18.0 [place] 768472-07-17 20:10:00 Test Item Value Reference Range Interpretation Comments Hct (test code = Hct) 22.9 42.0-54.0 [place] 768472-07-17 20:10:00 Test Item Value Reference Range Interpretation Comments MCV (test code = MCV) 105.9 80.0-94.0 [place] [address]-07-17 20:10:00 Test Item Value Reference Range Interpretation Comments MCH (test code = MCH) 35.4 pg 27.0-31.0 [place] 768472-07-17 20:10:00 Test Item Value Reference Range Interpretation Comments MCHC (test code = MCHC) 33.4 32.0-36.0 [facility] CenterSoihoidSUVTWYFUCU0410-68-46 20:10:00 Test Item Value Reference Range Interpretation Comments RDW (test code = RDW) 23.6 11.5-14.5 [place] 768472-07-17 20:10:00 Test Item Value Reference Range Interpretation Comments Platelet (test code = Platelet) 146 133-450 [facility] CenterKbtcfwoTWQMTYAXFH8560-39-00 20:10:00 Test Item Value Reference Range Interpretation Comments MPV (test code = MPV) 8.0 7.4-10.4 [facility] CenterGbxipcoQQFQDMBGFL4135-27-98 20:10:00 Test Item Value Reference Range Interpretation Comments Plt Morph (test code = Normal (12/14/21 3:10 Plt Morph) PM) [facility] CenterNblimldVDNGJXTRLR6653-74-69 20:10:00 Test Item Value Reference Range Interpretation Comments Segs (test code = Segs) 67.4 45.0-75.0 [facility] CenterLwoljnnZHWCPQHTPI8542-26-09 20:10:00 Test Item Value Reference Range Interpretation Comments Lymphocytes (test code = Lymphocytes) 12.8 20.0-40.0 [facility] CenterSsixeysSDULZKSZPZ8507-90-44 20:10:00 Test Item Value Reference Range Interpretation Comments Monocytes (test code = Monocytes) 15.1 2.0-12.0 [facility] CenterJxradztJBXBVPQENC4083-85-25 20:10:00 Test Item Value Reference Range Interpretation Comments Eosinophils (test code = 4.1 See_Comment [A utomated message] The Eosinophils) system which ge nerated this result tra nsmitted reference range : <=4.0. The reference r samantha was not used to int erpret this result as normal/abnormal . [facility] CenterSzftdwjOYBLNHYAOG6160-16-43 20:10:00 Test Item Value Reference Range Interpretation Comments Basophils (test code = 0.6 See_Comment [Aut omated message] The Basophils) system which ge nerated this result tra nsmitted reference range : <=1.0. The reference r samantha was not used to int erpret this result as normal/abnormal . [facility] CenterUsyiyirJXHPXVPYJK3816-86-25 20:10:00 Test Item Value Reference Range Interpretation Comments Neutrophils # (test code = Neutrophils 2.9 1.5-8.1 #) [facility] CampusMywvdriZGBHIKAAOZ8812-80-78 20:10:00 Test Item Value Reference Range Interpretation Comments Lymphocytes # (test code = Lymphocytes 0.5 1.0-5.5 #) [facility]RrbhqvkTNUKLHXRWJ1071-25-99 20:10:00 Test Item Value Reference Range Interpretation Comments Monocytes # (test code 0.6 See_Comment [Aut omated message] The = Monocytes #) system which generated this result tra nsmitted reference range : <=0.8. The reference r samantha was not used to int erpret this result as normal/abnormal . [facility] CenterJjopgskVGHBTIMBLP3302-71-33 20:10:00 Test Item Value Reference Range Interpretation Comments Eosinophils # (test code 0.2 See_Comment [A utomated message] The = Eosinophils #) system whic h generated this result tra nsmitted reference range : <=0.5. The reference r samantha was not used to int erpret this result as normal/abnormal . [facility] CampusPzhhhxbQCYDDSOTUO9376-65-04 20:10:00 Test Item Value Reference Range Interpretation Comments Anisocyte (test code = 1+ *ABN*(12/14/21 Anisocyte) 3:10 PM) [facility] CampusMypvjwtQOHAJEOTAA8788-08-65 20:10:00 Test Item Value Reference Range Interpretation Comments Macrocyte (test code = 1+ *ABN*(12/14/21 Macrocyte) 3:10 PM) [facility] CampusFbfzttbRNPNSFTSTD5946-05-70 20:10:00 Test Item Value Reference Range Interpretation Comments Coronavirus (COVID-19) Detected MANUEL (test code = 4*ABN*(12/14/21 3:10 Coronavirus (COVID-19) PM) MANUEL) [facility] CampusCARDIAC CTFQSVL4113-61-08 20:10:00 Test Item Value Reference Range Interpretation Comments HS Troponin I Baseline (test code = HS 340 Troponin I Baseline) [facility] GGHWB8279-19-96 20:10:00 Test Item Value Reference Range Interpretation Comments Glucose Lvl (test code = Glucose Lvl) 60 70-99 [facility] FSNOO2883-84-69 20:10:00 Test Item Value Reference Range Interpretation Comments BUN (test code = BUN) 35 7-22 [facility] CampusADAM [place] [address]26HSUAF9519-61-90 20:10:00 Test Item Value Reference Range Interpretation Comments Creatinine Lvl (test code = Creatinine 6.10 0.50-1.40 Lvl) [address]07-17 20:10:00 Test Item Value Reference Range Interpretation Comments Sodium Lvl (test code = Sodium Lvl) 139 135-145 [place] 117152-07-17 20:10:00 Test Item Value Reference Range Interpretation Comments Potassium Lvl (test code = Potassium 3.1 3.5-5.1 Lvl) [place] 117152-07-17 20:10:00 Test Item Value Reference Range Interpretation Comments Chloride Lvl (test code = Chloride Lvl) 105 95-109 [place] 117152-07-17 20:10:00 Test Item Value Reference Range Interpretation Comments CO2 (test code = CO2) 28 24-32 [place] [address]-07-17 20:10:00 Test Item Value Reference Range Interpretation Comments Calcium Lvl (test code = Calcium Lvl) 8.1 8.5-10.5 [place] 117152-07-17 20:10:00 Test Item Value Reference Range Interpretation Comments Total Protein (test code = Total 5.8 6.4-8.4 Protein) [place] [address]-07-17 20:10:00 Test Item Value Reference Range Interpretation Comments Albumin Lvl (test code = Albumin Lvl) 2.6 3.5-5.0 [place] 117152-07-17 20:10:00 Test Item Value Reference Range Interpretation Comments ALT (test code = ALT) 74 See_Comment [Auto mated message] The system which ge nerated this result transmit swathi reference range : <=65. The reference range was not used to interpr et this result as deny l/abnormal. [facility] [id number] 20:10:00 Test Item Value Reference Range Interpretation Comments AST (test code = AST) 117 See_Comment [Auto mated message] The system which ge nerated this result transmit swathi reference range : <=37. The reference range was not used to interpr et this result as deny l/abnormal. [facility] VPWNC9198-42-57 20:10:00 Test Item Value Reference Range Interpretation Comments Alk Phos (test code = Alk Phos) 241 39-136 [facility]2022-07-17 20:10:00 Test Item Value Reference Range Interpretation Comments Bili Total (test code = Bili Total) 0.8 0.2-1.3 [facility]2022-07-17 20:10:00 Test Item Value Reference Range Interpretation Comments AGAP (test code = AGAP) 9.1 10.0-20.0 [facility]2022-07-17 20:10:00 Test Item Value Reference Range Interpretation Comments B/C Ratio (test code = B/C Ratio) 6 1 6-25 [facility]2022-07-17 20:10:00 Test Item Value Reference Range Interpretation Comments Globulin (test code = Globulin) 3.2 2.7-4.2 [facility]2022-07-17 20:10:00 Test Item Value Reference Range Interpretation Comments A/G Ratio (test code = A/G Ratio) 0.8 1 0.7-1.6 [place] 117152-07-17 20:10:00 Test Item Value Reference Range Interpretation Comments eGFR (test code = eGFR) 9 [facility] CenterPwvhnmoESWONOWMMH8598-22-28 20:10:00 Test Item Value Reference Range Interpretation Comments WBC (test code = WBC) 4.3 3.7-10.4 [facility] CenterSmittkaZLELWXNWDG2573-80-62 20:10:00 Test Item Value Reference Range Interpretation Comments RBC (test code = RBC) 2.17 4.70-6.10 [facility] CenterCpqjkamXCWAUPWLBJ3774-68-37 20:10:00 Test Item Value Reference Range Interpretation Comments Hgb (test code = Hgb) 7.7 14.0-18.0 [place] 768472-07-17 20:10:00 Test Item Value Reference Range Interpretation Comments Hct (test code = Hct) 22.9 42.0-54.0 [place] 768472-07-17 20:10:00 Test Item Value Reference Range Interpretation Comments MCV (test code = MCV) 105.9 80.0-94.0 [place] 768472-07-17 20:10:00 Test Item Value Reference Range Interpretation Comments MCH (test code = MCH) 35.4 pg 27.0-31.0 [place] 768472-07-17 20:10:00 Test Item Value Reference Range Interpretation Comments MCHC (test code = MCHC) 33.4 32.0-36.0 [place] 768472-07-17 20:10:00 Test Item Value Reference Range Interpretation Comments RDW (test code = RDW) 23.6 11.5-14.5 [facility] CenterVctmmmpRWBGLOLGGL4780-41-35 20:10:00 Test Item Value Reference Range Interpretation Comments Platelet (test code = Platelet) 146 133-450 [facility] CenterXbkhsooBYLUGRHOWX4628-79-29 20:10:00 Test Item Value Reference Range Interpretation Comments MPV (test code = MPV) 8.0 7.4-10.4 [place] 768472-07-17 20:10:00 Test Item Value Reference Range Interpretation Comments Plt Morph (test code = Normal (12/14/21 3:10 Plt Morph) PM) [facility] CenterLbzvecyZCXUPISLKP7035-76-53 20:10:00 Test Item Value Reference Range Interpretation Comments Segs (test code = Segs) 67.4 45.0-75.0 [facility] CenterSfjosgzPPCIRTSPMF5885-60-83 20:10:00 Test Item Value Reference Range Interpretation Comments Lymphocytes (test code = Lymphocytes) 12.8 20.0-40.0 [place] 768472-07-17 20:10:00 Test Item Value Reference Range Interpretation Comments Monocytes (test code = Monocytes) 15.1 2.0-12.0 [place] 768472-07-17 20:10:00 Test Item Value Reference Range Interpretation Comments Eosinophils (test code = 4.1 See_Comment [A utomated message] The Eosinophils) system which ge nerated this result tra nsmitted reference range : <=4.0. The reference r samantha was not used to int erpret this result as normal/abnormal . [place] 768472-07-17 20:10:00 Test Item Value Reference Range Interpretation Comments Basophils (test code = 0.6 See_Comment [Aut omated message] The Basophils) system which ge nerated this result tra nsmitted reference range : <=1.0. The reference r samantha was not used to int erpret this result as normal/abnormal . [place] 768472-07-17 20:10:00 Test Item Value Reference Range Interpretation Comments Neutrophils # (test code = Neutrophils 2.9 1.5-8.1 #) [facility]FoqghcsITCQOGLHAJ4173-20-39 20:10:00 Test Item Value Reference Range Interpretation Comments Lymphocytes # (test code = Lymphocytes 0.5 1.0-5.5 #) [facility] CenterWolqjnbYMRPYZGRNW5984-06-83 20:10:00 Test Item Value Reference Range Interpretation Comments Monocytes # (test code 0.6 See_Comment [Aut omated message] The = Monocytes #) system which generated this result tra nsmitted reference range : <=0.8. The reference r samantha was not used to int erpret this result as normal/abnormal . [facility] CenterHmdfrvzVBBXKLENFG5567-14-46 20:10:00 Test Item Value Reference Range Interpretation Comments Eosinophils # (test code 0.2 See_Comment [A utomated message] The = Eosinophils #) system whic h generated this result tra nsmitted reference range : <=0.5. The reference r samantha was not used to int erpret this result as normal/abnormal . [facility] CenterPlbuuzzDVHBOSGHHE4597-76-52 20:10:00 Test Item Value Reference Range Interpretation Comments Anisocyte (test code = 1+ *ABN*(12/14/21 Anisocyte) 3:10 PM) [facility] CenterHsqrlvrAGZPAUMBUO4930-19-91 20:10:00 Test Item Value Reference Range Interpretation Comments Macrocyte (test code = 1+ *ABN*(12/14/21 Macrocyte) 3:10 PM) [facility] CampusDxpmbhfNQQDECYWUP0041-27-68 20:10:00 Test Item Value Reference Range Interpretation Comments Coronavirus (COVID-19) Detected MANUEL (test code = 4*ABN*(12/14/21 3:10 Coronavirus (COVID-19) PM) MANUEL) [facility]CARD[facility] BEEOOWS8767-53-10 20:10:00 Test Item Value Reference Range Interpretation Comments HS Troponin I Baseline (test code = HS 340 Troponin I Baseline) [facility] SDJYA8764-91-92 20:10:00 Test Item Value Reference Range Interpretation Comments Glucose Lvl (test code = Glucose Lvl) 60 70-99 [facility] FHJZV0525-97-65 20:10:00 Test Item Value Reference Range Interpretation Comments BUN (test code = BUN) 35 7-22 [place] 117152-07-17 20:10:00 Test Item Value Reference Range Interpretation Comments Creatinine Lvl (test code = Creatinine 6.10 0.50-1.40 Lvl) [place] 117152-07-17 20:10:00 Test Item Value Reference Range Interpretation Comments Sodium Lvl (test code = Sodium Lvl) 139 135-145 [place] 117152-07-17 20:10:00 Test Item Value Reference Range Interpretation Comments Potassium Lvl (test code = Potassium 3.1 3.5-5.1 Lvl) [place] [address]-07-17 20:10:00 Test Item Value Reference Range Interpretation Comments Chloride Lvl (test code = Chloride Lvl) 105 95-109 [place] 117152-07-17 20:10:00 Test Item Value Reference Range Interpretation Comments CO2 (test code = CO2) 28 24-32 [place] 117152-07-17 20:10:00 Test Item Value Reference Range Interpretation Comments Calcium Lvl (test code = Calcium Lvl) 8.1 8.5-10.5 [place] [address]-07-17 20:10:00 Test Item Value Reference Range Interpretation Comments Total Protein (test code = Total 5.8 6.4-8.4 Protein) [place] [address]-07-17 20:10:00 Test Item Value Reference Range Interpretation Comments Albumin Lvl (test code = Albumin Lvl) 2.6 3.5-5.0 [place] 117152-07-17 20:10:00 Test Item Value Reference Range Interpretation Comments ALT (test code = ALT) 74 See_Comment [Auto mated message] The system which [employer] nerated this result transmit swathi reference range : <=65. The reference range was not used to interpr et this result as deny l/abnormal. [place] 117152-07-17 20:10:00 Test Item Value Reference Range Interpretation Comments AST (test code = AST) 117 See_Comment [Auto mated message] The system which ge nerated this result transmit swathi reference range : <=37. The reference range was not used to interpr et this result as deny l/abnormal. [place] [address]-07-17 20:10:00 Test Item Value Reference Range Interpretation Comments Alk Phos (test code = Alk Phos) 241 39-136 [facility]2022-07-17 20:10:00 Test Item Value Reference Range Interpretation Comments Bili Total (test code = Bili Total) 0.8 0.2-1.3 [place] 117152-07-17 20:10:00 Test Item Value Reference Range Interpretation Comments AGAP (test code = AGAP) 9.1 10.0-20.0 [place] 117152-07-17 20:10:00 Test Item Value Reference Range Interpretation Comments B/C Ratio (test code = B/C Ratio) 6 1 6-25 [place] 117152-07-17 20:10:00 Test Item Value Reference Range Interpretation Comments Globulin (test code = Globulin) 3.2 2.7-4.2 [place] 117152-07-17 20:10:00 Test Item Value Reference Range Interpretation Comments A/G Ratio (test code = A/G Ratio) 0.8 1 0.7-1.6 [place] 117152-07-17 20:10:00 Test Item Value Reference Range Interpretation Comments eGFR (test code = eGFR) 9 [facility]OujusnyKUCBGGOZZN9091-53-24 20:10:00 Test Item Value Reference Range Interpretation Comments WBC (test code = WBC) 4.3 3.7-10.4 [place] 768472-07-17 20:10:00 Test Item Value Reference Range Interpretation Comments RBC (test code = RBC) 2.17 4.70-6.10 [place] 768472-07-17 20:10:00 Test Item Value Reference Range Interpretation Comments Hgb (test code = Hgb) 7.7 14.0-18.0 [place] 768472-07-17 20:10:00 Test Item Value Reference Range Interpretation Comments Hct (test code = Hct) 22.9 42.0-54.0 [place] [address]-07-17 20:10:00 Test Item Value Reference Range Interpretation Comments MCV (test code = MCV) 105.9 80.0-94.0 [place] [address]-07-17 20:10:00 Test Item Value Reference Range Interpretation Comments MCH (test code = MCH) 35.4 pg 27.0-31.0 [facility] CenterUjbasuvVTEUSFZCAW5805-09-62 20:10:00 Test Item Value Reference Range Interpretation Comments MCHC (test code = MCHC) 33.4 32.0-36.0 [facility] CenterIcqfohtJTJVIHYZDS3654-83-53 20:10:00 Test Item Value Reference Range Interpretation Comments RDW (test code = RDW) 23.6 11.5-14.5 [facility] CenterKnamghdIXPPUYLMMV7837-69-54 20:10:00 Test Item Value Reference Range Interpretation Comments Platelet (test code = Platelet) 146 133-450 [facility] CenterTeyaoyuNKXDZYFYRI6626-35-89 20:10:00 Test Item Value Reference Range Interpretation Comments MPV (test code = MPV) 8.0 7.4-10.4 [facility] CenterSjjxujgBZRSJWHRZC2549-53-59 20:10:00 Test Item Value Reference Range Interpretation Comments Plt Morph (test code = Normal (12/14/21 3:10 Plt Morph) PM) [facility] CenterTgwujjbVJIKOTDBVS7752-75-89 20:10:00 Test Item Value Reference Range Interpretation Comments Segs (test code = Segs) 67.4 45.0-75.0 [facility] CenterIotqefcJJPTJMALSJ1723-26-36 20:10:00 Test Item Value Reference Range Interpretation Comments Lymphocytes (test code = Lymphocytes) 12.8 20.0-40.0 [facility] CenterVwkflfdJHGCCXOUUG1448-59-88 20:10:00 Test Item Value Reference Range Interpretation Comments Monocytes (test code = Monocytes) 15.1 2.0-12.0 [facility] CenterBowopcpFOIRTXGLWM2867-31-81 20:10:00 Test Item Value Reference Range Interpretation Comments Eosinophils (test code = 4.1 See_Comment [A utomated message] The Eosinophils) system which ge nerated this result tra nsmitted reference range : <=4.0. The reference r samantha was not used to int erpret this result as normal/abnormal . [facility] CenterAwwqvmuUGEUYGJVVF2764-00-52 20:10:00 Test Item Value Reference Range Interpretation Comments Basophils (test code = 0.6 See_Comment [Aut omated message] The Basophils) system which ge nerated this result tra nsmitted reference range : <=1.0. The reference r samantha was not used to int erpret this result as normal/abnormal . [place] 768472-07-17 20:10:00 Test Item Value Reference Range Interpretation Comments Neutrophils # (test code = Neutrophils 2.9 1.5-8.1 #) [facility] CenterSvntzmsIPUWPVODSM8956-19-54 20:10:00 Test Item Value Reference Range Interpretation Comments Lymphocytes # (test code = Lymphocytes 0.5 1.0-5.5 #) [facility] CenterMavpgrcXLZPUHDXJK0996-41-13 20:10:00 Test Item Value Reference Range Interpretation Comments Monocytes # (test code 0.6 See_Comment [Aut omated message] The = Monocytes #) system which generated this result tra nsmitted reference range : <=0.8. The reference r samantha was not used to int erpret this result as normal/abnormal . [facility] CenterWoybadaFQRUMXWQJG5213-48-62 20:10:00 Test Item Value Reference Range Interpretation Comments Eosinophils # (test code 0.2 See_Comment [A utomated message] The = Eosinophils #) system whic h generated this result tra nsmitted reference range : <=0.5. The reference r samantha was not used to int erpret this result as normal/abnormal . [facility] CenterCpazmllCUGWQSIUUV1462-06-26 20:10:00 Test Item Value Reference Range Interpretation Comments Anisocyte (test code = 1+ *ABN*(12/14/21 Anisocyte) 3:10 PM) [facility] CenterXcukwykDECRDNCZLB5395-65-84 20:10:00 Test Item Value Reference Range Interpretation Comments Macrocyte (test code = 1+ *ABN*(12/14/21 Macrocyte) 3:10 PM) [facility] CampusXvoollkNZAAFCMEIF5729-32-20 20:10:00 Test Item Value Reference Range Interpretation Comments Coronavirus (COVID-19) Detected MANUEL (test code = 4*ABN*(12/14/21 3:10 Coronavirus (COVID-19) PM) MANUEL) [facility] CampusCARDIAC NAOKYPM4719-56-68 20:10:00 Test Item Value Reference Range Interpretation Comments HS Troponin I Baseline (test code = HS 340 Troponin I Baseline) [facility] APRDL0077-81-82 20:10:00 Test Item Value Reference Range Interpretation Comments Glucose Lvl (test code = Glucose Lvl) 60 70-99 [facility]2022-07-17 20:10:00 Test Item Value Reference Range Interpretation Comments BUN (test code = BUN) 35 7-22 [place] 117152-07-17 20:10:00 Test Item Value Reference Range Interpretation Comments Creatinine Lvl (test code = Creatinine 6.10 0.50-1.40 Lvl) [place] 117152-07-17 20:10:00 Test Item Value Reference Range Interpretation Comments Sodium Lvl (test code = Sodium Lvl) 139 135-145 [place] 117152-07-17 20:10:00 Test Item Value Reference Range Interpretation Comments Potassium Lvl (test code = Potassium 3.1 3.5-5.1 Lvl) [place] 117152-07-17 20:10:00 Test Item Value Reference Range Interpretation Comments Chloride Lvl (test code = Chloride Lvl) 105 95-109 [place] 117152-07-17 20:10:00 Test Item Value Reference Range Interpretation Comments CO2 (test code = CO2) 28 24-32 [place] 117152-07-17 20:10:00 Test Item Value Reference Range Interpretation Comments Calcium Lvl (test code = Calcium Lvl) 8.1 8.5-10.5 [place] 117152-07-17 20:10:00 Test Item Value Reference Range Interpretation Comments Total Protein (test code = Total 5.8 6.4-8.4 Protein) [place] 117152-07-17 20:10:00 Test Item Value Reference Range Interpretation Comments Albumin Lvl (test code = Albumin Lvl) 2.6 3.5-5.0 [place] 117152-07-17 20:10:00 Test Item Value Reference Range Interpretation Comments ALT (test code = ALT) 74 See_Comment [Auto mated message] The system which ge nerated this result transmit swathi reference range : <=65. The reference range was not used to interpr et this result as deny l/abnormal. [place] [address]-07-17 20:10:00 Test Item Value Reference Range Interpretation Comments AST (test code = AST) 117 See_Comment [Auto mated message] The system which ge nerated this result transmit swathi reference range : <=37. The reference range was not used to interpr et this result as deny l/abnormal. [place] 117152-07-17 20:10:00 Test Item Value Reference Range Interpretation Comments Alk Phos (test code = Alk Phos) 241 39-136 [place] 117152-07-17 20:10:00 Test Item Value Reference Range Interpretation Comments Bili Total (test code = Bili Total) 0.8 0.2-1.3 [facility]2022-07-17 20:10:00 Test Item Value Reference Range Interpretation Comments AGAP (test code = AGAP) 9.1 10.0-20.0 [place] 117152-07-17 20:10:00 Test Item Value Reference Range Interpretation Comments B/C Ratio (test code = B/C Ratio) 6 1 6-25 [place] 117152-07-17 20:10:00 Test Item Value Reference Range Interpretation Comments Globulin (test code = Globulin) 3.2 2.7-4.2 [facility]2022-07-17 20:10:00 Test Item Value Reference Range Interpretation Comments A/G Ratio (test code = A/G Ratio) 0.8 1 0.7-1.6 [place] 117152-07-17 20:10:00 Test Item Value Reference Range Interpretation Comments eGFR (test code = eGFR) 9 [facility] CenterMzvmekfMZHJTBQUXW7974-22-23 20:10:00 Test Item Value Reference Range Interpretation Comments WBC (test code = WBC) 4.3 3.7-10.4 [place] 768472-07-17 20:10:00 Test Item Value Reference Range Interpretation Comments RBC (test code = RBC) 2.17 4.70-6.10 [place] [address]-07-17 20:10:00 Test Item Value Reference Range Interpretation Comments Hgb (test code = Hgb) 7.7 14.0-18.0 [place] [address]-07-17 20:10:00 Test Item Value Reference Range Interpretation Comments Hct (test code = Hct) 22.9 42.0-54.0 [place] 768472-07-17 20:10:00 Test Item Value Reference Range Interpretation Comments MCV (test code = MCV) 105.9 80.0-94.0 [place] 768472-07-17 20:10:00 Test Item Value Reference Range Interpretation Comments MCH (test code = MCH) 35.4 pg 27.0-31.0 [facility] CenterMpuloguEOVXJRZWIJ3925-33-97 20:10:00 Test Item Value Reference Range Interpretation Comments MCHC (test code = MCHC) 33.4 32.0-36.0 [place] 768472-07-17 20:10:00 Test Item Value Reference Range Interpretation Comments RDW (test code = RDW) 23.6 11.5-14.5 [place] 768472-07-17 20:10:00 Test Item Value Reference Range Interpretation Comments Platelet (test code = Platelet) 146 133-450 [facility] CenterEqeeuuxCEZZDJVSQJ1375-28-07 20:10:00 Test Item Value Reference Range Interpretation Comments MPV (test code = MPV) 8.0 7.4-10.4 [place] 768472-07-17 20:10:00 Test Item Value Reference Range Interpretation Comments Plt Morph (test code = Normal (12/14/21 3:10 Plt Morph) PM) [facility] CenterVvxchhtRURGZSREGB0532-91-29 20:10:00 Test Item Value Reference Range Interpretation Comments Segs (test code = Segs) 67.4 45.0-75.0 [place] 768472-07-17 20:10:00 Test Item Value Reference Range Interpretation Comments Lymphocytes (test code = Lymphocytes) 12.8 20.0-40.0 [place] 768472-07-17 20:10:00 Test Item Value Reference Range Interpretation Comments Monocytes (test code = Monocytes) 15.1 2.0-12.0 [place] 768472-07-17 20:10:00 Test Item Value Reference Range Interpretation Comments Eosinophils (test code = 4.1 See_Comment [A utomated message] The Eosinophils) system which ge nerated this result tra nsmitted reference range : <=4.0. The reference r samantha was not used to int erpret this result as normal/abnormal . [place] [address]-07-17 20:10:00 Test Item Value Reference Range Interpretation Comments Basophils (test code = 0.6 See_Comment [Aut omated message] The Basophils) system which ge nerated this result tra nsmitted reference range : <=1.0. The reference r samantha was not used to int erpret this result as normal/abnormal . [facility] CenterUsdcpcqNKFXDQZNVL8199-30-00 20:10:00 Test Item Value Reference Range Interpretation Comments Neutrophils # (test code = Neutrophils 2.9 1.5-8.1 #) [facility] CenterAayrjhwUOIGNFYZHJ2790-58-78 20:10:00 Test Item Value Reference Range Interpretation Comments Lymphocytes # (test code = Lymphocytes 0.5 1.0-5.5 #) [facility] CenterDevbcjxHQPHIXIMQV4260-07-37 20:10:00 Test Item Value Reference Range Interpretation Comments Monocytes # (test code 0.6 See_Comment [Aut omated message] The = Monocytes #) system which generated this result tra nsmitted reference range : <=0.8. The reference r samantha was not used to int erpret this result as normal/abnormal . [facility] CenterByxofumVDEOHPGGWB8240-19-26 20:10:00 Test Item Value Reference Range Interpretation Comments Eosinophils # (test code 0.2 See_Comment [A utomated message] The = Eosinophils #) system whic h generated this result tra nsmitted reference range : <=0.5. The reference r samantha was not used to int erpret this result as normal/abnormal . [facility] CenterJxnjxwkTTSMCTNXZX5579-96-84 20:10:00 Test Item Value Reference Range Interpretation Comments Anisocyte (test code = 1+ *ABN*(12/14/21 Anisocyte) 3:10 PM) [facility] CenterNidlivjQHWXUUEIND9539-92-52 20:10:00 Test Item Value Reference Range Interpretation Comments Macrocyte (test code = 1+ *ABN*(12/14/21 Macrocyte) 3:10 PM) [facility] CampusGyhfjjsZNJGBXVSXK1688-90-85 20:10:00 Test Item Value Reference Range Interpretation Comments Coronavirus (COVID-19) Detected MANUEL (test code = 4*ABN*(12/14/21 3:10 Coronavirus (COVID-19) PM) MANUEL) [facility]2022-07-07 01:43:00 Test Item Value Reference Range Interpretation Comments Occult Bld Stl (test Negative (12/03/21 8:43 code = Occult Bld Stl) PM) [facility] AND [id number] 01:43:00 Test Item Value Reference Range Interpretation Comments Occult Bld Stl (test Negative (12/03/21 8:43 code = Occult Bld Stl) PM) [facility] AND [id number] 01:43:00 Test Item Value Reference Range Interpretation Comments Occult Bld Stl (test Negative (12/03/21 8:43 code = Occult Bld Stl) PM) [facility] AND [id number] 01:43:00 Test Item Value Reference Range Interpretation Comments Occult Bld Stl (test Negative (12/03/21 8:43 code = Occult Bld Stl) PM) [facility] AND [id number] 01:43:00 Test Item Value Reference Range Interpretation Comments Occult Bld Stl (test Negative (12/03/21 8:43 code = Occult Bld Stl) PM) [facility] HZCMDBW1851-68-28 01:29:00 Test Item Value Reference Range Interpretation Comments RBC product (test code Product available = RBC product) 2(12/03/21 8:29 PM) [facility] [id number] 01:29:00 Test Item Value Reference Range Interpretation Comments RBC product (test code Product available = RBC product) 2(12/03/21 8:29 PM) [facility] [id number] 01:29:00 Test Item Value Reference Range Interpretation Comments RBC product (test code Product available = RBC product) 2(12/03/21 8:29 PM) [facility] [id number] 01:29:00 Test Item Value Reference Range Interpretation Comments RBC product (test code Product available = RBC product) 2(12/03/21 8:29 PM) [facility] [id number] 01:29:00 Test Item Value Reference Range Interpretation Comments RBC product (test code Product available = RBC product) 2(12/03/21 8:29 PM) [facility] [id number] 00:36:00 Test Item Value Reference Range Interpretation Comments ABO/Rh (test code = ABO/Rh) AB POS [facility] [id number] 00:36:00 Test Item Value Reference Range Interpretation Comments Antibody Scrn (test Negative (12/03/21 7:36 code = Antibody Scrn) PM) [facility]2022-07-07 00:36:00 Test Item Value Reference Range Interpretation Comments Glucose Lvl (test code = Glucose Lvl) 143 70-99 [place] 117152-07-07 00:36:00 Test Item Value Reference Range Interpretation Comments BUN (test code = BUN) 39 7-22 [place] 117152-07-07 00:36:00 Test Item Value Reference Range Interpretation Comments Creatinine Lvl (test code = Creatinine 5.46 0.50-1.40 Lvl) [place] 117152-07-07 00:36:00 Test Item Value Reference Range Interpretation Comments Sodium Lvl (test code = Sodium Lvl) 136 135-145 [place] 117152-07-07 00:36:00 Test Item Value Reference Range Interpretation Comments Potassium Lvl (test code = Potassium 4.2 3.5-5.1 Lvl) [place] 117152-07-07 00:36:00 Test Item Value Reference Range Interpretation Comments Chloride Lvl (test code = Chloride Lvl) 100 95-109 [place] 117152-07-07 00:36:00 Test Item Value Reference Range Interpretation Comments CO2 (test code = CO2) 27 24-32 [place] 117152-07-07 00:36:00 Test Item Value Reference Range Interpretation Comments Calcium Lvl (test code = Calcium Lvl) 8.9 8.5-10.5 [place] 117152-07-07 00:36:00 Test Item Value Reference Range Interpretation Comments AGAP (test code = AGAP) 13.2 10.0-20.0 [place] 117152-07-07 00:36:00 Test Item Value Reference Range Interpretation Comments eGFR (test code = eGFR) 10 [place] 768472-07-07 00:36:00 Test Item Value Reference Range Interpretation Comments WBC (test code = WBC) 2.5 3.7-10.4 [place] 768472-07-07 00:36:00 Test Item Value Reference Range Interpretation Comments RBC (test code = RBC) 1.97 4.70-6.10 [place] 768472-07-07 00:36:00 Test Item Value Reference Range Interpretation Comments Hgb (test code = Hgb) 7.1 14.0-18.0 [place] 768472-07-07 00:36:00 Test Item Value Reference Range Interpretation Comments Hct (test code = Hct) 20.6 42.0-54.0 [place] 768472-07-07 00:36:00 Test Item Value Reference Range Interpretation Comments MCV (test code = MCV) 105.0 80.0-94.0 [facility] CenterQsnxcomAWJBMKKETK0770-44-90 00:36:00 Test Item Value Reference Range Interpretation Comments MCH (test code = MCH) 36.2 pg 27.0-31.0 [facility] CenterTasvcvlMENFDZFTPL9906-55-58 00:36:00 Test Item Value Reference Range Interpretation Comments MCHC (test code = MCHC) 34.5 32.0-36.0 [facility] CenterTzofsppWJAZUAOZDK6240-32-00 00:36:00 Test Item Value Reference Range Interpretation Comments RDW (test code = RDW) 21.1 11.5-14.5 [place] 768472-07-07 00:36:00 Test Item Value Reference Range Interpretation Comments Platelet (test code = Platelet) 136 133-450 [facility] CenterPlhzmerGOZQLQIPHV3237-34-17 00:36:00 Test Item Value Reference Range Interpretation Comments MPV (test code = MPV) 8.7 7.4-10.4 [facility] CenterBudttkxCHDJIBNLJE4942-92-98 00:36:00 Test Item Value Reference Range Interpretation Comments Segs (test code = Segs) 59.5 45.0-75.0 [facility] CenterBbqmloqSXYEVQHVBV2662-35-93 00:36:00 Test Item Value Reference Range Interpretation Comments Lymphocytes (test code = Lymphocytes) 25.2 20.0-40.0 [place] 768472-07-07 00:36:00 Test Item Value Reference Range Interpretation Comments Monocytes (test code = Monocytes) 12.5 2.0-12.0 [place] 768472-07-07 00:36:00 Test Item Value Reference Range Interpretation Comments Eosinophils (test code = 2.1 See_Comment [A utomated message] The Eosinophils) system which ge nerated this result tra nsmitted reference range : <=4.0. The reference r samantha was not used to int erpret this result as normal/abnormal . [facility] CenterFlngpceCKQRLIBMBD2737-64-60 00:36:00 Test Item Value Reference Range Interpretation Comments Basophils (test code = 0.7 See_Comment [Aut omated message] The Basophils) system which ge nerated this result tra nsmitted reference range : <=1.0. The reference r samantha was not used to int erpret this result as normal/abnormal . [facility] CenterOoodozbEYRVSBECSH1262-29-61 00:36:00 Test Item Value Reference Range Interpretation Comments Neutrophils # (test code = Neutrophils 1.5 1.5-8.1 #) [facility] CenterOwvitynWTVGUALZBV7761-22-66 00:36:00 Test Item Value Reference Range Interpretation Comments Lymphocytes # (test code = Lymphocytes 0.6 1.0-5.5 #) [facility] CenterHphuzhbMZCIBBNLCG5640-12-24 00:36:00 Test Item Value Reference Range Interpretation Comments Monocytes # (test code 0.3 See_Comment [Aut omated message] The = Monocytes #) system which generated this result tra nsmitted reference range : <=0.8. The reference r samantha was not used to int erpret this result as normal/abnormal . [facility] CenterBimjhsoAGPFJJGYVM9107-88-36 00:36:00 Test Item Value Reference Range Interpretation Comments Eosinophils # (test code 0.1 See_Comment [A utomated message] The = Eosinophils #) system whic h generated this result tra nsmitted reference range : <=0.5. The reference r samantha was not used to int erpret this result as normal/abnormal . [facility] CLVVJMH8703-37-14 00:36:00 Test Item Value Reference Range Interpretation Comments ABO/Rh (test code = ABO/Rh) AB POS [facility] CenterZ[facility] [id number] 00:36:00 Test Item Value Reference Range Interpretation Comments Antibody Scrn (test Negative (12/03/21 7:36 code = Antibody Scrn) PM) [facility] CenterLaguo FQYZV0955-15-29 00:36:00 Test Item Value Reference Range Interpretation Comments Glucose Lvl (test code = Glucose Lvl) 143 70-99 [facility] YRBFJ8295-00-50 00:36:00 Test Item Value Reference Range Interpretation Comments BUN (test code = BUN) 39 7-22 [facility] PCIAK7899-42-83 00:36:00 Test Item Value Reference Range Interpretation Comments Creatinine Lvl (test code = Creatinine 5.46 0.50-1.40 Lvl) [place] 117152-07-07 00:36:00 Test Item Value Reference Range Interpretation Comments Sodium Lvl (test code = Sodium Lvl) 136 135-145 [place] 117152-07-07 00:36:00 Test Item Value Reference Range Interpretation Comments Potassium Lvl (test code = Potassium 4.2 3.5-5.1 Lvl) [place] 117152-07-07 00:36:00 Test Item Value Reference Range Interpretation Comments Chloride Lvl (test code = Chloride Lvl) 100 95-109 [place] 117152-07-07 00:36:00 Test Item Value Reference Range Interpretation Comments CO2 (test code = CO2) 27 24-32 [place] 117152-07-07 00:36:00 Test Item Value Reference Range Interpretation Comments Calcium Lvl (test code = Calcium Lvl) 8.9 8.5-10.5 [place] 117152-07-07 00:36:00 Test Item Value Reference Range Interpretation Comments AGAP (test code = AGAP) 13.2 10.0-20.0 [place] 117152-07-07 00:36:00 Test Item Value Reference Range Interpretation Comments eGFR (test code = eGFR) 10 [place] 768472-07-07 00:36:00 Test Item Value Reference Range Interpretation Comments WBC (test code = WBC) 2.5 3.7-10.4 [place] 768472-07-07 00:36:00 Test Item Value Reference Range Interpretation Comments RBC (test code = RBC) 1.97 4.70-6.10 [place] 768472-07-07 00:36:00 Test Item Value Reference Range Interpretation Comments Hgb (test code = Hgb) 7.1 14.0-18.0 [place] 768472-07-07 00:36:00 Test Item Value Reference Range Interpretation Comments Hct (test code = Hct) 20.6 42.0-54.0 [place] 768472-07-07 00:36:00 Test Item Value Reference Range Interpretation Comments MCV (test code = MCV) 105.0 80.0-94.0 [place] 768472-07-07 00:36:00 Test Item Value Reference Range Interpretation Comments MCH (test code = MCH) 36.2 pg 27.0-31.0 [facility] CenterXgjkresEGHRRCTNSS6100-21-78 00:36:00 Test Item Value Reference Range Interpretation Comments MCHC (test code = MCHC) 34.5 32.0-36.0 [facility] CenterZnuaenfMBGFMKQNAQ3367-32-70 00:36:00 Test Item Value Reference Range Interpretation Comments RDW (test code = RDW) 21.1 11.5-14.5 [facility] CenterPuytchuFHBVHRBPOM1972-34-76 00:36:00 Test Item Value Reference Range Interpretation Comments Platelet (test code = Platelet) 136 133-450 [facility] CenterLreglflLMCPCHCAYK0774-42-75 00:36:00 Test Item Value Reference Range Interpretation Comments MPV (test code = MPV) 8.7 7.4-10.4 [facility] CenterLacqzbdSJEDLONSDD2036-41-32 00:36:00 Test Item Value Reference Range Interpretation Comments Segs (test code = Segs) 59.5 45.0-75.0 [facility] CenterWlpjdqtQGJSYEPRDA7851-39-31 00:36:00 Test Item Value Reference Range Interpretation Comments Lymphocytes (test code = Lymphocytes) 25.2 20.0-40.0 [facility] CenterCzmvzwsBQAPXQZDDT2503-72-11 00:36:00 Test Item Value Reference Range Interpretation Comments Monocytes (test code = Monocytes) 12.5 2.0-12.0 [facility] CenterXsnyffgJZZQENNULH3886-48-44 00:36:00 Test Item Value Reference Range Interpretation Comments Eosinophils (test code = 2.1 See_Comment [A utomated message] The Eosinophils) system which ge nerated this result tra nsmitted reference range : <=4.0. The reference r samantha was not used to int erpret this result as normal/abnormal . [facility] CenterDjepspcFDUHCZILXJ9208-33-56 00:36:00 Test Item Value Reference Range Interpretation Comments Basophils (test code = 0.7 See_Comment [Aut omated message] The Basophils) system which ge nerated this result tra nsmitted reference range : <=1.0. The reference r samantha was not used to int erpret this result as normal/abnormal . [place] 768472-07-07 00:36:00 Test Item Value Reference Range Interpretation Comments Neutrophils # (test code = Neutrophils 1.5 1.5-8.1 #) [facility]zz[facility]gqIMNSULLCEL1119-63-51 00:36:00 Test Item Value Reference Range Interpretation Comments Lymphocytes # (test code = Lymphocytes 0.6 1.0-5.5 #) [facility]qugOCEFDLXNNF3439-34-42 00:36:00 Test Item Value Reference Range Interpretation Comments Monocytes # (test code 0.3 See_Comment [Aut omated message] The = Monocytes #) system which generated this result tra nsmitted reference range : <=0.8. The reference r samantha was not used to int erpret this result as normal/abnormal . [facility] CenterSyljtigISUKXHFTWM7576-87-28 00:36:00 Test Item Value Reference Range Interpretation Comments Eosinophils # (test code 0.1 See_Comment [A utomated message] The = Eosinophils #) system whic h generated this result tra nsmitted reference range : <=0.5. The reference r samantha was not used to int erpret this result as normal/abnormal . [facility] [employer] DTVXHSP2038-18-30 00:36:00 Test Item Value Reference Range Interpretation Comments ABO/Rh (test code = ABO/Rh) AB POS [facility] [employer] [id number] 00:36:00 Test Item Value Reference Range Interpretation Comments Antibody Scrn (test Negative (12/03/21 7:36 code = Antibody Scrn) PM) [facility] [id number] 00:36:00 Test Item Value Reference Range Interpretation Comments Glucose Lvl (test code = Glucose Lvl) 143 70-99 [facility] [employer] [id number] 00:36:00 Test Item Value Reference Range Interpretation Comments BUN (test code = BUN) 39 7-22 [facility] [id number] 00:36:00 Test Item Value Reference Range Interpretation Comments Creatinine Lvl (test code = Creatinine 5.46 0.50-1.40 Lvl) [facility] XZROR7509-10-10 00:36:00 Test Item Value Reference Range Interpretation Comments Sodium Lvl (test code = Sodium Lvl) 136 135-145 [facility] [employer] NNAVY5715-87-72 00:36:00 Test Item Value Reference Range Interpretation Comments Potassium Lvl (test code = Potassium 4.2 3.5-5.1 Lvl) [facility]2022-07-07 00:36:00 Test Item Value Reference Range Interpretation Comments Chloride Lvl (test code = Chloride Lvl) 100 95-109 [place] 117152-07-07 00:36:00 Test Item Value Reference Range Interpretation Comments CO2 (test code = CO2) 27 24-32 [place] 117152-07-07 00:36:00 Test Item Value Reference Range Interpretation Comments Calcium Lvl (test code = Calcium Lvl) 8.9 8.5-10.5 [place] 117152-07-07 00:36:00 Test Item Value Reference Range Interpretation Comments AGAP (test code = AGAP) 13.2 10.0-20.0 [place] 117152-07-07 00:36:00 Test Item Value Reference Range Interpretation Comments eGFR (test code = eGFR) 10 [facility] CenterQpkdslgUDLWBWBTNA9235-48-79 00:36:00 Test Item Value Reference Range Interpretation Comments WBC (test code = WBC) 2.5 3.7-10.4 [place] 768472-07-07 00:36:00 Test Item Value Reference Range Interpretation Comments RBC (test code = RBC) 1.97 4.70-6.10 [place] 768472-07-07 00:36:00 Test Item Value Reference Range Interpretation Comments Hgb (test code = Hgb) 7.1 14.0-18.0 [place] 768472-07-07 00:36:00 Test Item Value Reference Range Interpretation Comments Hct (test code = Hct) 20.6 42.0-54.0 [place] 768472-07-07 00:36:00 Test Item Value Reference Range Interpretation Comments MCV (test code = MCV) 105.0 80.0-94.0 [place] 768472-07-07 00:36:00 Test Item Value Reference Range Interpretation Comments MCH (test code = MCH) 36.2 pg 27.0-31.0 [place] 768472-07-07 00:36:00 Test Item Value Reference Range Interpretation Comments MCHC (test code = MCHC) 34.5 32.0-36.0 [place] 768472-07-07 00:36:00 Test Item Value Reference Range Interpretation Comments RDW (test code = RDW) 21.1 11.5-14.5 [place] 768472-07-07 00:36:00 Test Item Value Reference Range Interpretation Comments Platelet (test code = Platelet) 136 133-450 [place] 768472-07-07 00:36:00 Test Item Value Reference Range Interpretation Comments MPV (test code = MPV) 8.7 7.4-10.4 [place] 768472-07-07 00:36:00 Test Item Value Reference Range Interpretation Comments Segs (test code = Segs) 59.5 45.0-75.0 [place] 768472-07-07 00:36:00 Test Item Value Reference Range Interpretation Comments Lymphocytes (test code = Lymphocytes) 25.2 20.0-40.0 [place] 768472-07-07 00:36:00 Test Item Value Reference Range Interpretation Comments Monocytes (test code = Monocytes) 12.5 2.0-12.0 [place] 768472-07-07 00:36:00 Test Item Value Reference Range Interpretation Comments Eosinophils (test code = 2.1 See_Comment [A utomated message] The Eosinophils) system which ge nerated this result tra nsmitted reference range : <=4.0. The reference r samantha was not used to int erpret this result as normal/abnormal . [place] 768472-07-07 00:36:00 Test Item Value Reference Range Interpretation Comments Basophils (test code = 0.7 See_Comment [Aut omated message] The Basophils) system which ge nerated this result tra nsmitted reference range : <=1.0. The reference r samantha was not used to int erpret this result as normal/abnormal . [facility] CenterIdldxsoVISJDENUOY1111-17-96 00:36:00 Test Item Value Reference Range Interpretation Comments Neutrophils # (test code = Neutrophils 1.5 1.5-8.1 #) [facility] CenterLfmmglePKZISUORGH5904-52-42 00:36:00 Test Item Value Reference Range Interpretation Comments Lymphocytes # (test code = Lymphocytes 0.6 1.0-5.5 #) [place] 768472-07-07 00:36:00 Test Item Value Reference Range Interpretation Comments Monocytes # (test code 0.3 See_Comment [Aut omated message] The = Monocytes #) system which generated this result tra nsmitted reference range : <=0.8. The reference r samantha was not used to int erpret this result as normal/abnormal . [facility]pot[facility]XKECQLOST0027-56-[facility]:36:00 Test Item Value Reference Range Interpretation Comments Eosinophils # (test code 0.1 See_Comment [A utomated message] The = Eosinophils #) system whic h generated this result tra nsmitted reference range : <=0.5. The reference r samantha was not used to int erpret this result as normal/abnormal . [facility] [employer] UZGUDGL5841-49-61 00:36:00 Test Item Value Reference Range Interpretation Comments ABO/Rh (test code = ABO/Rh) AB POS [facility] [employer] [facility] [id number] 00:36:00 Test Item Value Reference Range Interpretation Comments Antibody Scrn (test Negative (12/03/21 7:36 code = Antibody Scrn) PM) [facility] [employer] [id number] 00:36:00 Test Item Value Reference Range Interpretation Comments Glucose Lvl (test code = Glucose Lvl) 143 70-99 [facility] [employer] [id number] 00:36:00 Test Item Value Reference Range Interpretation Comments BUN (test code = BUN) 39 7-22 [facility] [employer] UTDAF1843-03-14 00:36:00 Test Item Value Reference Range Interpretation Comments Creatinine Lvl (test code = Creatinine 5.46 0.50-1.40 Lvl) [facility] [employer] [id number] 00:36:00 Test Item Value Reference Range Interpretation Comments Sodium Lvl (test code = Sodium Lvl) 136 135-145 [facility] [employer] [id number] 00:36:00 Test Item Value Reference Range Interpretation Comments Potassium Lvl (test code = Potassium 4.2 3.5-5.1 Lvl) [facility] [employer] [id number] 00:36:00 Test Item Value Reference Range Interpretation Comments Chloride Lvl (test code = Chloride Lvl) 100 95-109 [facility] [employer] [id number] 00:36:00 Test Item Value Reference Range Interpretation Comments CO2 (test code = CO2) 27 24-32 [facility]2022-07-07 00:36:00 Test Item Value Reference Range Interpretation Comments Calcium Lvl (test code = Calcium Lvl) 8.9 8.5-10.5 [facility]2022-07-07 00:36:00 Test Item Value Reference Range Interpretation Comments AGAP (test code = AGAP) 13.2 10.0-20.0 [facility]2022-07-07 00:36:00 Test Item Value Reference Range Interpretation Comments eGFR (test code = eGFR) 10 [facility] CenterDjfssbqVLXBNKAYLQ2367-70-58 00:36:00 Test Item Value Reference Range Interpretation Comments WBC (test code = WBC) 2.5 3.7-10.4 [place] 768472-07-07 00:36:00 Test Item Value Reference Range Interpretation Comments RBC (test code = RBC) 1.97 4.70-6.10 [facility] CenterKnwtzabMWZUBOITUQ2769-15-60 00:36:00 Test Item Value Reference Range Interpretation Comments Hgb (test code = Hgb) 7.1 14.0-18.0 [facility] CenterXeuggdeCEKXPHTSNJ2393-12-83 00:36:00 Test Item Value Reference Range Interpretation Comments Hct (test code = Hct) 20.6 42.0-54.0 [place] 768472-07-07 00:36:00 Test Item Value Reference Range Interpretation Comments MCV (test code = MCV) 105.0 80.0-94.0 [place] 768472-07-07 00:36:00 Test Item Value Reference Range Interpretation Comments MCH (test code = MCH) 36.2 pg 27.0-31.0 [place] 768472-07-07 00:36:00 Test Item Value Reference Range Interpretation Comments MCHC (test code = MCHC) 34.5 32.0-36.0 [facility] CenterTjtzqlzHXASDZJBFB1596-45-75 00:36:00 Test Item Value Reference Range Interpretation Comments RDW (test code = RDW) 21.1 11.5-14.5 [facility] CenterSiagrplRSSARNCQPC4961-86-39 00:36:00 Test Item Value Reference Range Interpretation Comments Platelet (test code = Platelet) 136 133-450 [facility] CenterOyohzjhMECCENHKSA6381-76-08 00:36:00 Test Item Value Reference Range Interpretation Comments MPV (test code = MPV) 8.7 7.4-10.4 [facility] CenterNloafpfYTZHRUIYDV1873-58-02 00:36:00 Test Item Value Reference Range Interpretation Comments Segs (test code = Segs) 59.5 45.0-75.0 [facility] CenterYcqrthyHRZTPKBDXS3746-07-38 00:36:00 Test Item Value Reference Range Interpretation Comments Lymphocytes (test code = Lymphocytes) 25.2 20.0-40.0 [facility] CenterLjwnszaCIKEMGMTSN6097-29-82 00:36:00 Test Item Value Reference Range Interpretation Comments Monocytes (test code = Monocytes) 12.5 2.0-12.0 [facility] CenterHsghfcgXKWQUQQGTD6708-00-91 00:36:00 Test Item Value Reference Range Interpretation Comments Eosinophils (test code = 2.1 See_Comment [A utomated message] The Eosinophils) system which ge nerated this result tra nsmitted reference range : <=4.0. The reference r samantha was not used to int erpret this result as normal/abnormal . [facility] CenterVsjukfxRPKGBQBMQV7889-60-10 00:36:00 Test Item Value Reference Range Interpretation Comments Basophils (test code = 0.7 See_Comment [Aut omated message] The Basophils) system which ge nerated this result tra nsmitted reference range : <=1.0. The reference r samantha was not used to int erpret this result as normal/abnormal . [facility] CenterAqoyxpnDFDLOZRVOY1122-14-89 00:36:00 Test Item Value Reference Range Interpretation Comments Neutrophils # (test code = Neutrophils 1.5 1.5-8.1 #) [facility] CenterArdxwtkYIZBPKUKKI7738-36-89 00:36:00 Test Item Value Reference Range Interpretation Comments Lymphocytes # (test code = Lymphocytes 0.6 1.0-5.5 #) [place] 768472-07-07 00:36:00 Test Item Value Reference Range Interpretation Comments Monocytes # (test code 0.3 See_Comment [Aut omated message] The = Monocytes #) system which generated this result tra nsmitted reference range : <=0.8. The reference r samantha was not used to int erpret this result as normal/abnormal . [place] 768472-07-07 00:36:00 Test Item Value Reference Range Interpretation Comments Eosinophils # (test code 0.1 See_Comment [A utomated message] The = Eosinophils #) system whic h generated this result tra nsmitted reference range : <=0.5. The reference r samantha was not used to int erpret this result as normal/abnormal . [facility] [employer] SYVKQPV6446-80-45 00:36:00 Test Item Value Reference Range Interpretation Comments ABO/Rh (test code = ABO/Rh) AB POS [facility] [employer] [id number] 00:36:00 Test Item Value Reference Range Interpretation Comments Antibody Scrn (test Negative (12/03/21 7:36 code = Antibody Scrn) PM) [facility] [employer] [id number] 00:36:00 Test Item Value Reference Range Interpretation Comments Glucose Lvl (test code = Glucose Lvl) 143 70-99 [facility] [employer] [id number] 00:36:00 Test Item Value Reference Range Interpretation Comments BUN (test code = BUN) 39 7-22 [facility] [employer] [id number] 00:36:00 Test Item Value Reference Range Interpretation Comments Creatinine Lvl (test code = Creatinine 5.46 0.50-1.40 Lvl) [employer]2022-07-07 00:36:00 Test Item Value Reference Range Interpretation Comments Sodium Lvl (test code = Sodium Lvl) 136 135-145 [employer]2022-07-07 00:36:00 Test Item Value Reference Range Interpretation Comments Potassium Lvl (test code = Potassium 4.2 3.5-5.1 Lvl) [employer]2022-07-07 00:36:00 Test Item Value Reference Range Interpretation Comments Chloride Lvl (test code = Chloride Lvl) 100 95-109 [employer] JLTZD2747-98-37 00:36:00 Test Item Value Reference Range Interpretation Comments CO2 (test code = CO2) 27 24-32 [employer]2022-07-07 00:36:00 Test Item Value Reference Range Interpretation Comments Calcium Lvl (test code = Calcium Lvl) 8.9 8.5-10.5 [facility] [employer] [id number] 00:36:00 Test Item Value Reference Range Interpretation Comments AGAP (test code = AGAP) 13.2 10.0-20.0 [facility] [employer]2022-07-07 00:36:00 Test Item Value Reference Range Interpretation Comments eGFR (test code = eGFR) 10 [facility] CenterQjzfkfaUNMMMYEFLI5726-09-80 00:36:00 Test Item Value Reference Range Interpretation Comments WBC (test code = WBC) 2.5 3.7-10.4 [facility] CenterXxopsyfCQEUJVVPLI8197-80-68 00:36:00 Test Item Value Reference Range Interpretation Comments RBC (test code = RBC) 1.97 4.70-6.10 [facility] CenterVbxsnhtGYNJEEALOB2192-79-46 00:36:00 Test Item Value Reference Range Interpretation Comments Hgb (test code = Hgb) 7.1 14.0-18.0 [facility] CenterMrphayvVGJHCGTZHG0300-22-30 00:36:00 Test Item Value Reference Range Interpretation Comments Hct (test code = Hct) 20.6 42.0-54.0 [place] 768472-07-07 00:36:00 Test Item Value Reference Range Interpretation Comments MCV (test code = MCV) 105.0 80.0-94.0 [place] 768472-07-07 00:36:00 Test Item Value Reference Range Interpretation Comments MCH (test code = MCH) 36.2 pg 27.0-31.0 [facility] CenterQftyvjlVWVVPNIOKP9349-49-44 00:36:00 Test Item Value Reference Range Interpretation Comments MCHC (test code = MCHC) 34.5 32.0-36.0 [facility] CenterAihtuoyCDNTVCZRTL9775-50-11 00:36:00 Test Item Value Reference Range Interpretation Comments RDW (test code = RDW) 21.1 11.5-14.5 [place] 768472-07-07 00:36:00 Test Item Value Reference Range Interpretation Comments Platelet (test code = Platelet) 136 133-450 [facility] CenterRvjvxdnHHZKGPRJYI0052-34-58 00:36:00 Test Item Value Reference Range Interpretation Comments MPV (test code = MPV) 8.7 7.4-10.4 [facility] CenterSszcsdqPRJXNUXYIV7129-36-07 00:36:00 Test Item Value Reference Range Interpretation Comments Segs (test code = Segs) 59.5 45.0-75.0 [place] 768472-07-07 00:36:00 Test Item Value Reference Range Interpretation Comments Lymphocytes (test code = Lymphocytes) 25.2 20.0-40.0 [facility] CenterIfbwuabQAGLJDDNFA5321-32-18 00:36:00 Test Item Value Reference Range Interpretation Comments Monocytes (test code = Monocytes) 12.5 2.0-12.0 [facility] CenterFoqemdsIIYNEPBEZY9573-99-96 00:36:00 Test Item Value Reference Range Interpretation Comments Eosinophils (test code = 2.1 See_Comment [A utomated message] The Eosinophils) system which ge nerated this result tra nsmitted reference range : <=4.0. The reference r samantha was not used to int erpret this result as normal/abnormal . [facility] CenterDrwfbeuPGGMZPFKZL0778-99-98 00:36:00 Test Item Value Reference Range Interpretation Comments Basophils (test code = 0.7 See_Comment [Aut omated message] The Basophils) system which ge nerated this result tra nsmitted reference range : <=1.0. The reference r samantha was not used to int erpret this result as normal/abnormal . [facility] CenterMzasirmCMFGFEGBFL0069-09-42 00:36:00 Test Item Value Reference Range Interpretation Comments Neutrophils # (test code = Neutrophils 1.5 1.5-8.1 #) [facility] CenterCevjqhvYMZUDTBIYN7698-07-77 00:36:00 Test Item Value Reference Range Interpretation Comments Lymphocytes # (test code = Lymphocytes 0.6 1.0-5.5 #) [facility] CenterLdtukjjCURIASIMDM2730-00-60 00:36:00 Test Item Value Reference Range Interpretation Comments Monocytes # (test code 0.3 See_Comment [Aut omated message] The = Monocytes #) system which generated this result tra nsmitted reference range : <=0.8. The reference r samantha was not used to int erpret this result as normal/abnormal . [place] 768472-07-07 00:36:00 Test Item Value Reference Range Interpretation Comments Eosinophils # (test code 0.1 See_Comment [A utomated message] The = Eosinophils #) system whic h generated this result tra nsmitted reference range : <=0.5. The reference r samantha was not used to int erpret this result as normal/abnormal . [facility]2022-06-29 09:09:00 Test Item Value Reference Range Interpretation Comments Ferritin Lvl (test code = Ferritin Lvl) 9538 44-449 [place] 117152-06-29 09:09:00 Test Item Value Reference Range Interpretation Comments Glucose Lvl (test code = Glucose Lvl) 288 70-99 [place] 117152-06-29 09:09:00 Test Item Value Reference Range Interpretation Comments BUN (test code = BUN) 40 7-22 [place] 117152-06-29 09:09:00 Test Item Value Reference Range Interpretation Comments Creatinine Lvl (test code = Creatinine 6.23 0.50-1.40 Lvl) [place] 117152-06-29 09:09:00 Test Item Value Reference Range Interpretation Comments Sodium Lvl (test code = Sodium Lvl) 134 135-145 [place] 117152-06-29 09:09:00 Test Item Value Reference Range Interpretation Comments Potassium Lvl (test code = Potassium 4.5 3.5-5.1 Lvl) [place] 117152-06-29 09:09:00 Test Item Value Reference Range Interpretation Comments Chloride Lvl (test code = Chloride Lvl) 96 95-109 [place] 117152-06-29 09:09:00 Test Item Value Reference Range Interpretation Comments CO2 (test code = CO2) 29 24-32 [place] 117152-06-29 09:09:00 Test Item Value Reference Range Interpretation Comments AGAP (test code = AGAP) 13.5 10.0-20.0 [place] 117152-06-29 09:09:00 Test Item Value Reference Range Interpretation Comments Calcium Lvl (test code = Calcium Lvl) 9.1 8.5-10.5 [place] 117152-06-29 09:09:00 Test Item Value Reference Range Interpretation Comments B/C Ratio (test code = B/C Ratio) 6 1 6-25 [place] 117152-06-29 09:09:00 Test Item Value Reference Range Interpretation Comments Total Protein (test code = Total 6.3 6.4-8.4 Protein) [place] 117152-06-29 09:09:00 Test Item Value Reference Range Interpretation Comments Albumin Lvl (test code = Albumin Lvl) 2.5 3.5-5.0 [place] 117152-06-29 09:09:00 Test Item Value Reference Range Interpretation Comments Globulin (test code = Globulin) 3.8 2.7-4.2 [facility] GACBP1691-75-08 09:09:00 Test Item Value Reference Range Interpretation Comments A/G Ratio (test code = A/G Ratio) 0.7 1 0.7-1.6 [facility] [id number] 09:09:00 Test Item Value Reference Range Interpretation Comments ALT (test code = ALT) 38 See_Comment [Auto mated message] The system which ge nerated this result transmit swathi reference range : <=65. The reference range was not used to interpr et this result as deny l/abnormal. [facility] GZVIS8659-43-22 09:09:00 Test Item Value Reference Range Interpretation Comments AST (test code = AST) 31 See_Comment [Auto mated message] The system which ge nerated this result transmit swathi reference range : <=37. The reference range was not used to interpr et this result as deny l/abnormal. [facility] YNYCQ0670-45-95 09:09:00 Test Item Value Reference Range Interpretation Comments Alk Phos (test code = Alk Phos) 357 39-136 [facility] ELDSI7468-44-61 09:09:00 Test Item Value Reference Range Interpretation Comments Bili Total (test code = Bili Total) 1.0 0.2-1.3 [facility] WPKJH3666-64-34 09:09:00 Test Item Value Reference Range Interpretation Comments eGFR (test code = eGFR) 8 [facility] LBBCJ3011-72-18 09:09:00 Test Item Value Reference Range Interpretation Comments Magnesium Lvl (test code = Magnesium 2.0 1.8-2.4 Lvl) [facility] XTSTZ2623-33-60 09:09:00 Test Item Value Reference Range Interpretation Comments LDH (test code = LDH) 251 98-192 [facility] [employer] [id number] 09:09:00 Test Item Value Reference Range Interpretation Comments Procalcitonin Lvl (test 0.51 See_Comment [Au tomated message] code = Procalcitonin Lvl) Th e system which generated this result transmitted ref erence range: <=0.10. The reference range was not used to interpr et this result as normal/abnormal . [facility] CenterXljouytQYOYVJYTVW2596-77-91 09:09:00 Test Item Value Reference Range Interpretation Comments D-Dimer (test code = D-Dimer) 5.06 [facility] CenterLurmuqkNICIGTGLES1779-43-83 09:09:00 Test Item Value Reference Range Interpretation Comments WBC (test code = WBC) 4.8 3.7-10.4 [facility] CenterZahhnuyNPZZLUEYIT4269-54-68 09:09:00 Test Item Value Reference Range Interpretation Comments RBC (test code = RBC) 2.14 4.70-6.10 [facility] CenterHumfektTXCQJXKRQQ5710-11-35 09:09:00 Test Item Value Reference Range Interpretation Comments Hgb (test code = Hgb) 7.7 14.0-18.0 [place] [address]-06-29 09:09:00 Test Item Value Reference Range Interpretation Comments Hct (test code = Hct) 22.8 42.0-54.0 [place] 768472-06-29 09:09:00 Test Item Value Reference Range Interpretation Comments MCV (test code = MCV) 106.5 80.0-94.0 [facility] CenterLbaczrkPBJCMTGVOB4592-24-81 09:09:00 Test Item Value Reference Range Interpretation Comments MCH (test code = MCH) 36.1 pg 27.0-31.0 [facility] CenterUqdcriaRTFZJHLHVC0883-59-91 09:09:00 Test Item Value Reference Range Interpretation Comments MCHC (test code = MCHC) 33.9 32.0-36.0 [facility] CenterPubfkzpABWLZCSMVQ0872-34-09 09:09:00 Test Item Value Reference Range Interpretation Comments RDW (test code = RDW) 21.8 11.5-14.5 [facility] CenterNykgzvfDYHDHKBSFW3759-88-16 09:09:00 Test Item Value Reference Range Interpretation Comments Platelet (test code = Platelet) 176 133-450 [facility] CenterLwmtivkGNUBJPQICV4418-52-47 09:09:00 Test Item Value Reference Range Interpretation Comments MPV (test code = MPV) 8.2 7.4-10.4 [place] 768472-06-29 09:09:00 Test Item Value Reference Range Interpretation Comments Segs (test code = Segs) 83.6 45.0-75.0 [place] 768472-06-29 09:09:00 Test Item Value Reference Range Interpretation Comments Lymphocytes (test code = Lymphocytes) 10.7 20.0-40.0 [facility] CenterNphbnopACHOTVGAGC9417-28-34 09:09:00 Test Item Value Reference Range Interpretation Comments Monocytes (test code = Monocytes) 4.9 2.0-12.0 [facility] CenterUtduczuULKVUCKHPQ1416-84-87 09:09:00 Test Item Value Reference Range Interpretation Comments Eosinophils (test code = 0.4 See_Comment [A utomated message] The Eosinophils) system which ge nerated this result tra nsmitted reference range : <=4.0. The reference r samantha was not used to int erpret this result as normal/abnormal . [facility]LrlmnspSCLIIBXGOK9825-31-44 09:09:00 Test Item Value Reference Range Interpretation Comments Basophils (test code = 0.4 See_Comment [Aut omated message] The Basophils) system which ge nerated this result tra nsmitted reference range : <=1.0. The reference r samantha was not used to int erpret this result as normal/abnormal . [facility] CenterKiolcubMOYTTUIIJZ8462-31-43 09:09:00 Test Item Value Reference Range Interpretation Comments Neutrophils # (test code = Neutrophils 4.0 1.5-8.1 #) [facility] CenterIruaeoxIRKUFCEMVK9781-27-88 09:09:00 Test Item Value Reference Range Interpretation Comments Lymphocytes # (test code = Lymphocytes 0.5 1.0-5.5 #) [facility] CenterWfbumqvTUKYWEITGR2717-22-66 09:09:00 Test Item Value Reference Range Interpretation Comments Monocytes # (test code 0.2 See_Comment [Aut omated message] The = Monocytes #) system which generated this result tra nsmitted reference range : <=0.8. The reference r samantha was not used to int erpret this result as normal/abnormal . [facility] CenterLlybriqCEUTYRIOUM7948-80-05 09:09:00 Test Item Value Reference Range Interpretation Comments Macrocyte (test code = 1+ *ABN*(11/26/21 Macrocyte) 4:09 AM) [facility]FS[facility]BUKE[facility]7196-58-82 09:09:00 Test Item Value Reference Range Interpretation Comments Interleukin 6 (test code = Interleukin 14.71 6) [place] 944042-06-29 09:09:00 Test Item Value Reference Range Interpretation Comments C-REACTIVE PROTEIN (test code = 95.9 C-REACTIVE PROTEIN) [facility]2022-06-29 09:09:00 Test Item Value Reference Range Interpretation Comments Ferritin Lvl (test code = Ferritin Lvl) 1543 22275 [facility]2022-06-29 09:09:00 Test Item Value Reference Range Interpretation Comments Glucose Lvl (test code = Glucose Lvl) 288 70-99 [place] 117152-06-29 09:09:00 Test Item Value Reference Range Interpretation Comments BUN (test code = BUN) 40 7-22 [place] 117152-06-29 09:09:00 Test Item Value Reference Range Interpretation Comments Creatinine Lvl (test code = Creatinine 6.23 0.50-1.40 Lvl) [place] 117152-06-29 09:09:00 Test Item Value Reference Range Interpretation Comments Sodium Lvl (test code = Sodium Lvl) 134 135-145 [place] 117152-06-29 09:09:00 Test Item Value Reference Range Interpretation Comments Potassium Lvl (test code = Potassium 4.5 3.5-5.1 Lvl) [place] 117152-06-29 09:09:00 Test Item Value Reference Range Interpretation Comments Chloride Lvl (test code = Chloride Lvl) 96 95-109 [place] 117152-06-29 09:09:00 Test Item Value Reference Range Interpretation Comments CO2 (test code = CO2) 29 24-32 [place] 117152-06-29 09:09:00 Test Item Value Reference Range Interpretation Comments AGAP (test code = AGAP) 13.5 10.0-20.0 [place] 117152-06-29 09:09:00 Test Item Value Reference Range Interpretation Comments Calcium Lvl (test code = Calcium Lvl) 9.1 8.5-10.5 [place] 117152-06-29 09:09:00 Test Item Value Reference Range Interpretation Comments B/C Ratio (test code = B/C Ratio) 6 1 6-25 [place] 117152-06-29 09:09:00 Test Item Value Reference Range Interpretation Comments Total Protein (test code = Total 6.3 6.4-8.4 Protein) [place] 117152-06-29 09:09:00 Test Item Value Reference Range Interpretation Comments Albumin Lvl (test code = Albumin Lvl) 2.5 3.5-5.0 [place] 117152-06-29 09:09:00 Test Item Value Reference Range Interpretation Comments Globulin (test code = Globulin) 3.8 2.7-4.2 [place] 117152-06-29 09:09:00 Test Item Value Reference Range Interpretation Comments A/G Ratio (test code = A/G Ratio) 0.7 1 0.7-1.6 [place] [address]-06-29 09:09:00 Test Item Value Reference Range Interpretation Comments ALT (test code = ALT) 38 See_Comment [Auto mated message] The system which ge nerated this result transmit swathi reference range : <=65. The reference range was not used to interpr et this result as deny l/abnormal. [facility] LUHWX4536-04-36 09:09:00 Test Item Value Reference Range Interpretation Comments AST (test code = AST) 31 See_Comment [Auto mated message] The system which ge nerated this result transmit swathi reference range : <=37. The reference range was not used to interpr et this result as deny l/abnormal. [facility] RPGLF5995-19-44 09:09:00 Test Item Value Reference Range Interpretation Comments Alk Phos (test code = Alk Phos) 357 39-136 [facility] BSRKY6997-85-06 09:09:00 Test Item Value Reference Range Interpretation Comments Bili Total (test code = Bili Total) 1.0 0.2-1.3 [facility] OVGMT4442-17-14 09:09:00 Test Item Value Reference Range Interpretation Comments eGFR (test code = eGFR) 8 [facility] DEHDZ3987-67-26 09:09:00 Test Item Value Reference Range Interpretation Comments Magnesium Lvl (test code = Magnesium 2.0 1.8-2.4 Lvl) [place] 117152-06-29 09:09:00 Test Item Value Reference Range Interpretation Comments LDH (test code = LDH) 251 98-192 [facility] HTDYE7439-55-73 09:09:00 Test Item Value Reference Range Interpretation Comments Procalcitonin Lvl (test 0.51 See_Comment [Au tomated message] code = Procalcitonin Lvl) Th e system which generated this result transmitted ref erence range: <=0.10. The reference range was not used to interpr et this result as normal/abnormal . [facility] CenterSmmvsngRYIXZRWSUN1650-80-54 09:09:00 Test Item Value Reference Range Interpretation Comments D-Dimer (test code = D-Dimer) 5.06 [facility] CenterGtvnelbKAMBUINRWO8314-06-49 09:09:00 Test Item Value Reference Range Interpretation Comments WBC (test code = WBC) 4.8 3.7-10.4 [facility] CenterKndyvalFKFKCQZKIM7764-53-86 09:09:00 Test Item Value Reference Range Interpretation Comments RBC (test code = RBC) 2.14 4.70-6.10 [facility] CenterQjykwohKOMFNCRWLI6494-12-05 09:09:00 Test Item Value Reference Range Interpretation Comments Hgb (test code = Hgb) 7.7 14.0-18.0 [facility] CenterEawyulxUQXUDCHNUJ5316-35-13 09:09:00 Test Item Value Reference Range Interpretation Comments Hct (test code = Hct) 22.8 42.0-54.0 [facility] CenterCshvpcwMIFCNTUALT0368-61-23 09:09:00 Test Item Value Reference Range Interpretation Comments MCV (test code = MCV) 106.5 80.0-94.0 [facility] CenterGmpforgZRDTKGUTZH2327-64-51 09:09:00 Test Item Value Reference Range Interpretation Comments MCH (test code = MCH) 36.1 pg 27.0-31.0 [facility] CenterBbarqwwFGEMCHLJOQ2992-33-49 09:09:00 Test Item Value Reference Range Interpretation Comments MCHC (test code = MCHC) 33.9 32.0-36.0 [facility] CenterZtkjizmTFVXSSNYIL0650-71-48 09:09:00 Test Item Value Reference Range Interpretation Comments RDW (test code = RDW) 21.8 11.5-14.5 [facility] CenterHhpoetjXFOLRIYYER0534-97-30 09:09:00 Test Item Value Reference Range Interpretation Comments Platelet (test code = Platelet) 176 133-450 [facility] CenterOrrcuuyCUPUPWZZCP8685-89-62 09:09:00 Test Item Value Reference Range Interpretation Comments MPV (test code = MPV) 8.2 7.4-10.4 [facility] CenterHwaeajrXXYDUJPDKK1146-83-70 09:09:00 Test Item Value Reference Range Interpretation Comments Segs (test code = Segs) 83.6 45.0-75.0 [facility] CenterVoadumkWOYITWLZNA9230-30-03 09:09:00 Test Item Value Reference Range Interpretation Comments Lymphocytes (test code = Lymphocytes) 10.7 20.0-40.0 [facility] CenterEtjjixqBXJPGLOXQO2918-80-39 09:09:00 Test Item Value Reference Range Interpretation Comments Monocytes (test code = Monocytes) 4.9 2.0-12.0 [facility] CenterGfnggqgLKIHUDQEYZ1139-09-01 09:09:00 Test Item Value Reference Range Interpretation Comments Eosinophils (test code = 0.4 See_Comment [A utomated message] The Eosinophils) system which ge nerated this result tra nsmitted reference range : <=4.0. The reference r samantha was not used to int erpret this result as normal/abnormal . [facility] CenterBumvgacAPZKQYLRQE6865-42-93 09:09:00 Test Item Value Reference Range Interpretation Comments Basophils (test code = 0.4 See_Comment [Aut omated message] The Basophils) system which ge nerated this result tra nsmitted reference range : <=1.0. The reference r samantha was not used to int erpret this result as normal/abnormal . [facility] CenterNkrdigqHHUIQELEHU7605-60-43 09:09:00 Test Item Value Reference Range Interpretation Comments Neutrophils # (test code = Neutrophils 4.0 1.5-8.1 #) [facility] CenterRvqkjvpHAHFKSUGWE1043-98-57 09:09:00 Test Item Value Reference Range Interpretation Comments Lymphocytes # (test code = Lymphocytes 0.5 1.0-5.5 #) [facility] CenterJsojxndWRNQWEBRKH8521-91-70 09:09:00 Test Item Value Reference Range Interpretation Comments Monocytes # (test code 0.2 See_Comment [Aut omated message] The = Monocytes #) system which generated this result tra nsmitted reference range : <=0.8. The reference r samantha was not used to int erpret this result as normal/abnormal . [facility] CenterUvxbslkZBNGQEQOXD0115-91-09 09:09:00 Test Item Value Reference Range Interpretation Comments Macrocyte (test code = 1+ *ABN*(11/26/21 Macrocyte) 4:09 AM) [facility]PzqccjgCBZFRKMTNW1250-07-38 09:09:00 Test Item Value Reference Range Interpretation Comments Interleukin 6 (test code = Interleukin 14.71 6) [facility] CampusVanczvfUPHPMJJVRK8385-61-46 09:09:00 Test Item Value Reference Range Interpretation Comments C-REACTIVE PROTEIN (test code = 95.9 C-REACTIVE PROTEIN) [facility]2022-06-29 09:09:00 Test Item Value Reference Range Interpretation Comments Ferritin Lvl (test code = Ferritin Lvl) 1543 22-275 [facility]2022-06-29 09:09:00 Test Item Value Reference Range Interpretation Comments Glucose Lvl (test code = Glucose Lvl) 288 70-99 [facility]2022-06-29 09:09:00 Test Item Value Reference Range Interpretation Comments BUN (test code = BUN) 40 7-22 [facility]2022-06-29 09:09:00 Test Item Value Reference Range Interpretation Comments Creatinine Lvl (test code = Creatinine 6.23 0.50-1.40 Lvl) [facility]2022-06-29 09:09:00 Test Item Value Reference Range Interpretation Comments Sodium Lvl (test code = Sodium Lvl) 134 135-145 [facility]2022-06-29 09:09:00 Test Item Value Reference Range Interpretation Comments Potassium Lvl (test code = Potassium 4.5 3.5-5.1 Lvl) [facility]2022-06-29 09:09:00 Test Item Value Reference Range Interpretation Comments Chloride Lvl (test code = Chloride Lvl) 96 95-109 [facility]2022-06-29 09:09:00 Test Item Value Reference Range Interpretation Comments CO2 (test code = CO2) 29 24-32 [facility]2022-06-29 09:09:00 Test Item Value Reference Range Interpretation Comments AGAP (test code = AGAP) 13.5 10.0-20.0 [place] 117152-06-29 09:09:00 Test Item Value Reference Range Interpretation Comments Calcium Lvl (test code = Calcium Lvl) 9.1 8.5-10.5 [place] 117152-06-29 09:09:00 Test Item Value Reference Range Interpretation Comments B/C Ratio (test code = B/C Ratio) 6 1 6-25 [place] 117152-06-29 09:09:00 Test Item Value Reference Range Interpretation Comments Total Protein (test code = Total 6.3 6.4-8.4 Protein) [place] 117152-06-29 09:09:00 Test Item Value Reference Range Interpretation Comments Albumin Lvl (test code = Albumin Lvl) 2.5 3.5-5.0 [place] 117152-06-29 09:09:00 Test Item Value Reference Range Interpretation Comments Globulin (test code = Globulin) 3.8 2.7-4.2 [place] [address]-06-29 09:09:00 Test Item Value Reference Range Interpretation Comments A/G Ratio (test code = A/G Ratio) 0.7 1 0.7-1.6 [place] 117152-06-29 09:09:00 Test Item Value Reference Range Interpretation Comments ALT (test code = ALT) 38 See_Comment [Auto mated message] The system which ge nerated this result transmit swathi reference range : <=65. The reference range was not used to interpr et this result as deny l/abnormal. [place] 117152-06-29 09:09:00 Test Item Value Reference Range Interpretation Comments AST (test code = AST) 31 See_Comment [Auto mated message] The system which ge nerated this result transmit swathi reference range : <=37. The reference range was not used to interpr et this result as deny l/abnormal. [place] 117152-06-29 09:09:00 Test Item Value Reference Range Interpretation Comments Alk Phos (test code = Alk Phos) 357 39-136 [place] 117152-06-29 09:09:00 Test Item Value Reference Range Interpretation Comments Bili Total (test code = Bili Total) 1.0 0.2-1.3 [place] 117152-06-29 09:09:00 Test Item Value Reference Range Interpretation Comments eGFR (test code = eGFR) 8 [place] 117152-06-29 09:09:00 Test Item Value Reference Range Interpretation Comments Magnesium Lvl (test code = Magnesium 2.0 1.8-2.4 Lvl) [place] 117152-06-29 09:09:00 Test Item Value Reference Range Interpretation Comments LDH (test code = LDH) 251 98-192 [facility]2022-06-29 09:09:00 Test Item Value Reference Range Interpretation Comments Procalcitonin Lvl (test 0.51 See_Comment [Au tomated message] code = Procalcitonin Lvl) Th e system which generated this result transmitted ref erence range: <=0.10. The reference range was not used to interpr et this result as normal/abnormal . [facility] CampusJkeggjzLCIXDCYTEH5242-05-79 09:09:00 Test Item Value Reference Range Interpretation Comments D-Dimer (test code = D-Dimer) 5.06 [facility] CenterDeprmtbSPCKLDKBUM5357-82-12 09:09:00 Test Item Value Reference Range Interpretation Comments WBC (test code = WBC) 4.8 3.7-10.4 [facility] CenterPhdfesjHIZNHFGQIH7910-24-24 09:09:00 Test Item Value Reference Range Interpretation Comments RBC (test code = RBC) 2.14 4.70-6.10 [facility] CenterPjrikgnKKZSKIQCTT1541-63-77 09:09:00 Test Item Value Reference Range Interpretation Comments Hgb (test code = Hgb) 7.7 14.0-18.0 [facility] CenterDaiauwkASQLWWNLIX7199-90-89 09:09:00 Test Item Value Reference Range Interpretation Comments Hct (test code = Hct) 22.8 42.0-54.0 [facility] CenterWtoozyySKGHLKEROV0512-02-68 09:09:00 Test Item Value Reference Range Interpretation Comments MCV (test code = MCV) 106.5 80.0-94.0 [facility] CenterUwernpgFIZZUUFEFG3017-45-41 09:09:00 Test Item Value Reference Range Interpretation Comments MCH (test code = MCH) 36.1 pg 27.0-31.0 [facility] CenterYxzytekARCPDXBGIW1623-84-30 09:09:00 Test Item Value Reference Range Interpretation Comments MCHC (test code = MCHC) 33.9 32.0-36.0 [facility] CenterDgcsmfzOOCCVJLFYU8129-57-57 09:09:00 Test Item Value Reference Range Interpretation Comments RDW (test code = RDW) 21.8 11.5-14.5 [place] 768472-06-29 09:09:00 Test Item Value Reference Range Interpretation Comments Platelet (test code = Platelet) 176 133-450 [facility] CenterVmzmqmbMROBZOETJW3518-35-84 09:09:00 Test Item Value Reference Range Interpretation Comments MPV (test code = MPV) 8.2 7.4-10.4 [place] 768472-06-29 09:09:00 Test Item Value Reference Range Interpretation Comments Segs (test code = Segs) 83.6 45.0-75.0 [place] 768472-06-29 09:09:00 Test Item Value Reference Range Interpretation Comments Lymphocytes (test code = Lymphocytes) 10.7 20.0-40.0 [place] [address]-06-29 09:09:00 Test Item Value Reference Range Interpretation Comments Monocytes (test code = Monocytes) 4.9 2.0-12.0 [place] 768472-06-29 09:09:00 Test Item Value Reference Range Interpretation Comments Eosinophils (test code = 0.4 See_Comment [A utomated message] The Eosinophils) system which ge nerated this result tra nsmitted reference range : <=4.0. The reference r samantha was not used to int erpret this result as normal/abnormal . [facility] CenterSwddcnwEITMQHWDCB3848-19-92 09:09:00 Test Item Value Reference Range Interpretation Comments Basophils (test code = 0.4 See_Comment [Aut omated message] The Basophils) system which ge nerated this result tra nsmitted reference range : <=1.0. The reference r samantha was not used to int erpret this result as normal/abnormal . [facility] CenterRuemwzkANMSZEQHQJ2055-99-94 09:09:00 Test Item Value Reference Range Interpretation Comments Neutrophils # (test code = Neutrophils 4.0 1.5-8.1 #) [facility] CenterKexbolhIBAOCWYCLW6120-47-37 09:09:00 Test Item Value Reference Range Interpretation Comments Lymphocytes # (test code = Lymphocytes 0.5 1.0-5.5 #) [place] 768472-06-29 09:09:00 Test Item Value Reference Range Interpretation Comments Monocytes # (test code 0.2 See_Comment [Aut omated message] The = Monocytes #) system which generated this result tra nsmitted reference range : <=0.8. The reference r samantha was not used to int erpret this result as normal/abnormal . [place] 768472-06-29 09:09:00 Test Item Value Reference Range Interpretation Comments Macrocyte (test code = 1+ *ABN*(11/26/21 Macrocyte) 4:09 AM) [facility] CampusQoduwjqIBDWNFANYN1138-86-81 09:09:00 Test Item Value Reference Range Interpretation Comments Interleukin 6 (test code = Interleukin 14.71 6) [place] 944042-06-29 09:09:00 Test Item Value Reference Range Interpretation Comments C-REACTIVE PROTEIN (test code = 95.9 C-REACTIVE PROTEIN) [facility]2022-06-29 09:09:00 Test Item Value Reference Range Interpretation Comments Ferritin Lvl (test code = Ferritin Lvl) 1543 22275 [facility]2022-06-29 09:09:00 Test Item Value Reference Range Interpretation Comments Glucose Lvl (test code = Glucose Lvl) 288 70-99 [facility]2022-06-29 09:09:00 Test Item Value Reference Range Interpretation Comments BUN (test code = BUN) 40 7-22 [place] 117152-06-29 09:09:00 Test Item Value Reference Range Interpretation Comments Creatinine Lvl (test code = Creatinine 6.23 0.50-1.40 Lvl) [facility]2022-06-29 09:09:00 Test Item Value Reference Range Interpretation Comments Sodium Lvl (test code = Sodium Lvl) 134 135-145 [place] 117152-06-29 09:09:00 Test Item Value Reference Range Interpretation Comments Potassium Lvl (test code = Potassium 4.5 3.5-5.1 Lvl) [facility]2022-06-29 09:09:00 Test Item Value Reference Range Interpretation Comments Chloride Lvl (test code = Chloride Lvl) 96 95-109 [place] 117152-06-29 09:09:00 Test Item Value Reference Range Interpretation Comments CO2 (test code = CO2) 29 24-32 [facility]2022-06-29 09:09:00 Test Item Value Reference Range Interpretation Comments AGAP (test code = AGAP) 13.5 10.0-20.0 [place] 117152-06-29 09:09:00 Test Item Value Reference Range Interpretation Comments Calcium Lvl (test code = Calcium Lvl) 9.1 8.5-10.5 [place] 117152-06-29 09:09:00 Test Item Value Reference Range Interpretation Comments B/C Ratio (test code = B/C Ratio) 6 1 6-25 [place] 117152-06-29 09:09:00 Test Item Value Reference Range Interpretation Comments Total Protein (test code = Total 6.3 6.4-8.4 Protein) [place] 117152-06-29 09:09:00 Test Item Value Reference Range Interpretation Comments Albumin Lvl (test code = Albumin Lvl) 2.5 3.5-5.0 [place] 117152-06-29 09:09:00 Test Item Value Reference Range Interpretation Comments Globulin (test code = Globulin) 3.8 2.7-4.2 [place] 117152-06-29 09:09:00 Test Item Value Reference Range Interpretation Comments A/G Ratio (test code = A/G Ratio) 0.7 1 0.7-1.6 [place] 117152-06-29 09:09:00 Test Item Value Reference Range Interpretation Comments ALT (test code = ALT) 38 See_Comment [Auto mated message] The system which ge nerated this result transmit swathi reference range : <=65. The reference range was not used to interpr et this result as deny l/abnormal. [facility]2022-06-29 09:09:00 Test Item Value Reference Range Interpretation Comments AST (test code = AST) 31 See_Comment [Auto mated message] The system which ge nerated this result transmit swathi reference range : <=37. The reference range was not used to interpr et this result as deny l/abnormal. [place] 117152-06-29 09:09:00 Test Item Value Reference Range Interpretation Comments Alk Phos (test code = Alk Phos) 357 39-136 [place] 117152-06-29 09:09:00 Test Item Value Reference Range Interpretation Comments Bili Total (test code = Bili Total) 1.0 0.2-1.3 [place] 117152-06-29 09:09:00 Test Item Value Reference Range Interpretation Comments eGFR (test code = eGFR) 8 [place] 117152-06-29 09:09:00 Test Item Value Reference Range Interpretation Comments Magnesium Lvl (test code = Magnesium 2.0 1.8-2.4 Lvl) [facility]2022-06-29 09:09:00 Test Item Value Reference Range Interpretation Comments LDH (test code = LDH) 251 98-192 [facility]2022-06-29 09:09:00 Test Item Value Reference Range Interpretation Comments Procalcitonin Lvl (test 0.51 See_Comment [Au tomated message] code = Procalcitonin Lvl) e system which generated this result transmitted ref erence range: <=0.10. The reference range was not used to interpr et this result as normal/abnormal . [facility] CenterVytnwmzRINFBZDCIE3984-72-80 09:09:00 Test Item Value Reference Range Interpretation Comments D-Dimer (test code = D-Dimer) 5.06 [place] 768472-06-29 09:09:00 Test Item Value Reference Range Interpretation Comments WBC (test code = WBC) 4.8 3.7-10.4 [place] 768472-06-29 09:09:00 Test Item Value Reference Range Interpretation Comments RBC (test code = RBC) 2.14 4.70-6.10 [place] 768472-06-29 09:09:00 Test Item Value Reference Range Interpretation Comments Hgb (test code = Hgb) 7.7 14.0-18.0 [place] 768472-06-29 09:09:00 Test Item Value Reference Range Interpretation Comments Hct (test code = Hct) 22.8 42.0-54.0 [place] 768472-06-29 09:09:00 Test Item Value Reference Range Interpretation Comments MCV (test code = MCV) 106.5 80.0-94.0 [place] 768472-06-29 09:09:00 Test Item Value Reference Range Interpretation Comments MCH (test code = MCH) 36.1 pg 27.0-31.0 [facility] CenterGzlcxovAIHNUGGSFH6316-89-66 09:09:00 Test Item Value Reference Range Interpretation Comments MCHC (test code = MCHC) 33.9 32.0-36.0 [place] 768472-06-29 09:09:00 Test Item Value Reference Range Interpretation Comments RDW (test code = RDW) 21.8 11.5-14.5 [place] 768472-06-29 09:09:00 Test Item Value Reference Range Interpretation Comments Platelet (test code = Platelet) 176 133-450 [place] 768472-06-29 09:09:00 Test Item Value Reference Range Interpretation Comments MPV (test code = MPV) 8.2 7.4-10.4 [place] 768472-06-29 09:09:00 Test Item Value Reference Range Interpretation Comments Segs (test code = Segs) 83.6 45.0-75.0 [place] 768472-06-29 09:09:00 Test Item Value Reference Range Interpretation Comments Lymphocytes (test code = Lymphocytes) 10.7 20.0-40.0 [place] 768472-06-29 09:09:00 Test Item Value Reference Range Interpretation Comments Monocytes (test code = Monocytes) 4.9 2.0-12.0 [place] 768472-06-29 09:09:00 Test Item Value Reference Range Interpretation Comments Eosinophils (test code = 0.4 See_Comment [A utomated message] The Eosinophils) system which ge nerated this result tra nsmitted reference range : <=4.0. The reference r samantha was not used to int erpret this result as normal/abnormal . [facility] CenterTgejskaUXZWBFXMHM6250-58-59 09:09:00 Test Item Value Reference Range Interpretation Comments Basophils (test code = 0.4 See_Comment [Aut omated message] The Basophils) system which ge nerated this result tra nsmitted reference range : <=1.0. The reference r samantha was not used to int erpret this result as normal/abnormal . [facility]lmdlxoJQJHECCMGG9735-68-55 09:09:00 Test Item Value Reference Range Interpretation Comments Neutrophils # (test code = Neutrophils 4.0 1.5-8.1 #) [place] 768472-06-29 09:09:00 Test Item Value Reference Range Interpretation Comments Lymphocytes # (test code = Lymphocytes 0.5 1.0-5.5 #) [place] 768472-06-29 09:09:00 Test Item Value Reference Range Interpretation Comments Monocytes # (test code 0.2 See_Comment [Aut omated message] The = Monocytes #) system which generated this result tra nsmitted reference range : <=0.8. The reference r samantha was not used to int erpret this result as normal/abnormal . [facility] CenterAjgcpxyVIPGUIZMOD3844-05-64 09:09:00 Test Item Value Reference Range Interpretation Comments Macrocyte (test code = 1+ *ABN*(11/26/21 Macrocyte) 4:09 AM) [facility]kuecikZPNLZNXTKS0402-80-30 09:09:00 Test Item Value Reference Range Interpretation Comments Interleukin 6 (test code = Interleukin 14.71 6) [place] 944042-06-29 09:09:00 Test Item Value Reference Range Interpretation Comments C-REACTIVE PROTEIN (test code = 95.9 C-REACTIVE PROTEIN) [facility]2022-06-29 09:09:00 Test Item Value Reference Range Interpretation Comments Ferritin Lvl (test code = Ferritin Lvl) 1543 22275 [facility]2022-06-29 09:09:00 Test Item Value Reference Range Interpretation Comments Glucose Lvl (test code = Glucose Lvl) 288 70-99 [place] 117152-06-29 09:09:00 Test Item Value Reference Range Interpretation Comments BUN (test code = BUN) 40 7-22 [facility]2022-06-29 09:09:00 Test Item Value Reference Range Interpretation Comments Creatinine Lvl (test code = Creatinine 6.23 0.50-1.40 Lvl) [facility]2022-06-29 09:09:00 Test Item Value Reference Range Interpretation Comments Sodium Lvl (test code = Sodium Lvl) 134 135-145 [facility]2022-06-29 09:09:00 Test Item Value Reference Range Interpretation Comments Potassium Lvl (test code = Potassium 4.5 3.5-5.1 Lvl) [facility]2022-06-29 09:09:00 Test Item Value Reference Range Interpretation Comments Chloride Lvl (test code = Chloride Lvl) 96 95-109 [place] 117152-06-29 09:09:00 Test Item Value Reference Range Interpretation Comments CO2 (test code = CO2) 29 24-32 [place] 117152-06-29 09:09:00 Test Item Value Reference Range Interpretation Comments AGAP (test code = AGAP) 13.5 10.0-20.0 [place] 117152-06-29 09:09:00 Test Item Value Reference Range Interpretation Comments Calcium Lvl (test code = Calcium Lvl) 9.1 8.5-10.5 [place] 117152-06-29 09:09:00 Test Item Value Reference Range Interpretation Comments B/C Ratio (test code = B/C Ratio) 6 1 6-25 [place] 117152-06-29 09:09:00 Test Item Value Reference Range Interpretation Comments Total Protein (test code = Total 6.3 6.4-8.4 Protein) [place] 117152-06-29 09:09:00 Test Item Value Reference Range Interpretation Comments Albumin Lvl (test code = Albumin Lvl) 2.5 3.5-5.0 [place] 117152-06-29 09:09:00 Test Item Value Reference Range Interpretation Comments Globulin (test code = Globulin) 3.8 2.7-4.2 [place] 117152-06-29 09:09:00 Test Item Value Reference Range Interpretation Comments A/G Ratio (test code = A/G Ratio) 0.7 1 0.7-1.6 [place] 117152-06-29 09:09:00 Test Item Value Reference Range Interpretation Comments ALT (test code = ALT) 38 See_Comment [Auto mated message] The system which ge nerated this result transmit swathi reference range : <=65. The reference range was not used to interpr et this result as deny l/abnormal. [place] 117152-06-29 09:09:00 Test Item Value Reference Range Interpretation Comments AST (test code = AST) 31 See_Comment [Auto mated message] The system which ge nerated this result transmit swathi reference range : <=37. The reference range was not used to interpr et this result as deny l/abnormal. [place] 117152-06-29 09:09:00 Test Item Value Reference Range Interpretation Comments Alk Phos (test code = Alk Phos) 357 39-136 [place] 117152-06-29 09:09:00 Test Item Value Reference Range Interpretation Comments Bili Total (test code = Bili Total) 1.0 0.2-1.3 [facility]2022-06-29 09:09:00 Test Item Value Reference Range Interpretation Comments eGFR (test code = eGFR) 8 [facility]2022-06-29 09:09:00 Test Item Value Reference Range Interpretation Comments Magnesium Lvl (test code = Magnesium 2.0 1.8-2.4 Lvl) [place] 117152-06-29 09:09:00 Test Item Value Reference Range Interpretation Comments LDH (test code = LDH) 251 98-192 [facility]2022-06-29 09:09:00 Test Item Value Reference Range Interpretation Comments Procalcitonin Lvl (test 0.51 See_Comment [Au tomated message] code = Procalcitonin Lvl) e system which generated this result transmitted ref erence range: <=0.10. The reference range was not used to interpr et this result as normal/abnormal . [place] 768472-06-29 09:09:00 Test Item Value Reference Range Interpretation Comments D-Dimer (test code = D-Dimer) 5.06 [place] [address]-06-29 09:09:00 Test Item Value Reference Range Interpretation Comments WBC (test code = WBC) 4.8 3.7-10.4 [place] 768472-06-29 09:09:00 Test Item Value Reference Range Interpretation Comments RBC (test code = RBC) 2.14 4.70-6.10 [place] 768472-06-29 09:09:00 Test Item Value Reference Range Interpretation Comments Hgb (test code = Hgb) 7.7 14.0-18.0 [place] 768472-06-29 09:09:00 Test Item Value Reference Range Interpretation Comments Hct (test code = Hct) 22.8 42.0-54.0 [place] [address]-06-29 09:09:00 Test Item Value Reference Range Interpretation Comments MCV (test code = MCV) 106.5 80.0-94.0 [place] [address]-06-29 09:09:00 Test Item Value Reference Range Interpretation Comments MCH (test code = MCH) 36.1 pg 27.0-31.0 [place] 768472-06-29 09:09:00 Test Item Value Reference Range Interpretation Comments MCHC (test code = MCHC) 33.9 32.0-36.0 [place] 768472-06-29 09:09:00 Test Item Value Reference Range Interpretation Comments RDW (test code = RDW) 21.8 11.5-14.5 [place] 768472-06-29 09:09:00 Test Item Value Reference Range Interpretation Comments Platelet (test code = Platelet) 176 133-450 [place] 768472-06-29 09:09:00 Test Item Value Reference Range Interpretation Comments MPV (test code = MPV) 8.2 7.4-10.4 [place] 768472-06-29 09:09:00 Test Item Value Reference Range Interpretation Comments Segs (test code = Segs) 83.6 45.0-75.0 [place] 768472-06-29 09:09:00 Test Item Value Reference Range Interpretation Comments Lymphocytes (test code = Lymphocytes) 10.7 20.0-40.0 [place] 768472-06-29 09:09:00 Test Item Value Reference Range Interpretation Comments Monocytes (test code = Monocytes) 4.9 2.0-12.0 [place] 768472-06-29 09:09:00 Test Item Value Reference Range Interpretation Comments Eosinophils (test code = 0.4 See_Comment [A utomated message] The Eosinophils) system which ge nerated this result tra nsmitted reference range : <=4.0. The reference r samantha was not used to int erpret this result as normal/abnormal . [facility] CenterUfwfsmjTVIFEMEXUJ2486-88-56 09:09:00 Test Item Value Reference Range Interpretation Comments Basophils (test code = 0.4 See_Comment [Aut omated message] The Basophils) system which ge nerated this result tra nsmitted reference range : <=1.0. The reference r samantha was not used to int erpret this result as normal/abnormal . [facility] CenterNfgppvoJIWOCALFJD4211-74-33 09:09:00 Test Item Value Reference Range Interpretation Comments Neutrophils # (test code = Neutrophils 4.0 1.5-8.1 #) [place] 768472-06-29 09:09:00 Test Item Value Reference Range Interpretation Comments Lymphocytes # (test code = Lymphocytes 0.5 1.0-5.5 #) [facility] CenterWsizmiuGQJNYPDGJD4926-33-72 09:09:00 Test Item Value Reference Range Interpretation Comments Monocytes # (test code 0.2 See_Comment [Aut omated message] The = Monocytes #) system which generated this result tra nsmitted reference range : <=0.8. The reference r samantha was not used to int erpret this result as normal/abnormal . [facility] CenterWkozmupIEOQDDMBNL8330-58-64 09:09:00 Test Item Value Reference Range Interpretation Comments Macrocyte (test code = 1+ *ABN*(11/26/21 Macrocyte) 4:09 AM) [place] 944042-06-29 09:09:00 Test Item Value Reference Range Interpretation Comments Interleukin 6 (test code = Interleukin 14.71 6) [place] 944042-06-29 09:09:00 Test Item Value Reference Range Interpretation Comments C-REACTIVE PROTEIN (test code = 95.9 C-REACTIVE PROTEIN) [place] 768472-06-28 12:33:00 Test Item Value Reference Range Interpretation Comments Segs (test code = Segs) 84.8 45.0-75.0 [place] 768472-06-28 12:33:00 Test Item Value Reference Range Interpretation Comments Lymphocytes (test code = Lymphocytes) 11.6 20.0-40.0 [place] 768472-06-28 12:33:00 Test Item Value Reference Range Interpretation Comments Monocytes (test code = Monocytes) 2.8 2.0-12.0 [place] 768472-06-28 12:33:00 Test Item Value Reference Range Interpretation Comments Eosinophils (test code = 0.4 See_Comment [A utomated message] The Eosinophils) system which ge nerated this result tra nsmitted reference range : <=4.0. The reference r samantha was not used to int erpret this result as normal/abnormal . [place] 768472-06-28 12:33:00 Test Item Value Reference Range Interpretation Comments Basophils (test code = 0.4 See_Comment [Aut omated message] The Basophils) system which ge nerated this result tra nsmitted reference range : <=1.0. The reference r samantha was not used to int erpret this result as normal/abnormal . [facility] CenterNukohraRVRQEIZDGS1225-04-78 12:33:00 Test Item Value Reference Range Interpretation Comments Neutrophils # (test code = Neutrophils 4.4 1.5-8.1 #) [facility] CenterPhkgonzYQHKECTBOE2635-49-81 12:33:00 Test Item Value Reference Range Interpretation Comments Lymphocytes # (test code = Lymphocytes 0.6 1.0-5.5 #) [place] 768472-06-28 12:33:00 Test Item Value Reference Range Interpretation Comments Monocytes # (test code 0.1 See_Comment [Aut omated message] The = Monocytes #) system which generated this result tra nsmitted reference range : <=0.8. The reference r samantha was not used to int erpret this result as normal/abnormal . [place] 768472-06-28 12:33:00 Test Item Value Reference Range Interpretation Comments Macrocyte (test code = 1+ *ABN*(11/25/21 Macrocyte) 7:33 AM) [place] 768472-06-28 12:33:00 Test Item Value Reference Range Interpretation Comments WBC (test code = WBC) 5.2 3.7-10.4 [place] 768472-06-28 12:33:00 Test Item Value Reference Range Interpretation Comments RBC (test code = RBC) 2.18 4.70-6.10 [facility] CenterBqpvldeVKXOFMOUZX4139-57-77 12:33:00 Test Item Value Reference Range Interpretation Comments Hgb (test code = Hgb) 7.8 14.0-18.0 [place] 768472-06-28 12:33:00 Test Item Value Reference Range Interpretation Comments Hct (test code = Hct) 23.6 42.0-54.0 [place] 768472-06-28 12:33:00 Test Item Value Reference Range Interpretation Comments MCV (test code = MCV) 108.4 80.0-94.0 [place] 768472-06-28 12:33:00 Test Item Value Reference Range Interpretation Comments MCH (test code = MCH) 35.9 pg 27.0-31.0 [place] 768472-06-28 12:33:00 Test Item Value Reference Range Interpretation Comments MCHC (test code = MCHC) 33.1 32.0-36.0 [place] 768472-06-28 12:33:00 Test Item Value Reference Range Interpretation Comments RDW (test code = RDW) 21.5 11.5-14.5 [place] [address]-06-28 12:33:00 Test Item Value Reference Range Interpretation Comments Platelet (test code = Platelet) 167 133-450 [place] 768472-06-28 12:33:00 Test Item Value Reference Range Interpretation Comments MPV (test code = MPV) 7.6 7.4-10.4 [place] 768472-06-28 12:33:00 Test Item Value Reference Range Interpretation Comments Segs (test code = Segs) 84.8 45.0-75.0 [place] [address]-06-28 12:33:00 Test Item Value Reference Range Interpretation Comments Lymphocytes (test code = Lymphocytes) 11.6 20.0-40.0 [place] 768472-06-28 12:33:00 Test Item Value Reference Range Interpretation Comments Monocytes (test code = Monocytes) 2.8 2.0-12.0 [place] 768472-06-28 12:33:00 Test Item Value Reference Range Interpretation Comments Eosinophils (test code = 0.4 See_Comment [A utomated message] The Eosinophils) system which ge nerated this result tra nsmitted reference range : <=4.0. The reference r samantha was not used to int erpret this result as normal/abnormal . [place] 768472-06-28 12:33:00 Test Item Value Reference Range Interpretation Comments Basophils (test code = 0.4 See_Comment [Aut omated message] The Basophils) system which ge nerated this result tra nsmitted reference range : <=1.0. The reference r samantha was not used to int erpret this result as normal/abnormal . [place] 768472-06-28 12:33:00 Test Item Value Reference Range Interpretation Comments Neutrophils # (test code = Neutrophils 4.4 1.5-8.1 #) [place] 768472-06-28 12:33:00 Test Item Value Reference Range Interpretation Comments Lymphocytes # (test code = Lymphocytes 0.6 1.0-5.5 #) [place] 768472-06-28 12:33:00 Test Item Value Reference Range Interpretation Comments Monocytes # (test code 0.1 See_Comment [Aut omated message] The = Monocytes #) system which generated this result tra nsmitted reference range : <=0.8. The reference r samantha was not used to int erpret this result as normal/abnormal . [facility] CenterYvwtdisOEVRAXLZYL6174-94-91 12:33:00 Test Item Value Reference Range Interpretation Comments Macrocyte (test code = 1+ *ABN*(11/25/21 Macrocyte) 7:33 AM) [facility] CenterXvymltjSWXHOJBKZH6281-80-43 12:33:00 Test Item Value Reference Range Interpretation Comments WBC (test code = WBC) 5.2 3.7-10.4 [facility] CenterGuzypcrWZAXLGAWSY9551-43-52 12:33:00 Test Item Value Reference Range Interpretation Comments RBC (test code = RBC) 2.18 4.70-6.10 [facility] CenterMkeeipbFLZGDDMWRK5081-45-43 12:33:00 Test Item Value Reference Range Interpretation Comments Hgb (test code = Hgb) 7.8 14.0-18.0 [facility] CenterUlewzeaUJPPCHNHXL6578-78-17 12:33:00 Test Item Value Reference Range Interpretation Comments Hct (test code = Hct) 23.6 42.0-54.0 [facility] CenterJyzgwygXLRKITOAIV9940-60-58 12:33:00 Test Item Value Reference Range Interpretation Comments MCV (test code = MCV) 108.4 80.0-94.0 [facility] CenterMszvvojVHPAEYGVZU9854-46-03 12:33:00 Test Item Value Reference Range Interpretation Comments MCH (test code = MCH) 35.9 pg 27.0-31.0 [facility] CenterGmetfotYEMQIQFFND1487-04-96 12:33:00 Test Item Value Reference Range Interpretation Comments MCHC (test code = MCHC) 33.1 32.0-36.0 [facility] CenterTlcagkcCIDSRWFLTM9367-36-39 12:33:00 Test Item Value Reference Range Interpretation Comments RDW (test code = RDW) 21.5 11.5-14.5 [place] 768472-06-28 12:33:00 Test Item Value Reference Range Interpretation Comments Platelet (test code = Platelet) 167 133-450 [facility] CenterLkbxqlrPMHAMTBJVM9121-53-61 12:33:00 Test Item Value Reference Range Interpretation Comments MPV (test code = MPV) 7.6 7.4-10.4 [place] 768472-06-28 12:33:00 Test Item Value Reference Range Interpretation Comments Segs (test code = Segs) 84.8 45.0-75.0 [place] 768472-06-28 12:33:00 Test Item Value Reference Range Interpretation Comments Lymphocytes (test code = Lymphocytes) 11.6 20.0-40.0 [place] [address]-06-28 12:33:00 Test Item Value Reference Range Interpretation Comments Monocytes (test code = Monocytes) 2.8 2.0-12.0 [place] [address]-06-28 12:33:00 Test Item Value Reference Range Interpretation Comments Eosinophils (test code = 0.4 See_Comment [A utomated message] The Eosinophils) system which ge nerated this result tra nsmitted reference range : <=4.0. The reference r samantha was not used to int erpret this result as normal/abnormal . [place] 768472-06-28 12:33:00 Test Item Value Reference Range Interpretation Comments Basophils (test code = 0.4 See_Comment [Aut omated message] The Basophils) system which ge nerated this result tra nsmitted reference range : <=1.0. The reference r samantha was not used to int erpret this result as normal/abnormal . [place] 768472-06-28 12:33:00 Test Item Value Reference Range Interpretation Comments Neutrophils # (test code = Neutrophils 4.4 1.5-8.1 #) [place] 768472-06-28 12:33:00 Test Item Value Reference Range Interpretation Comments Lymphocytes # (test code = Lymphocytes 0.6 1.0-5.5 #) [place] [address]-06-28 12:33:00 Test Item Value Reference Range Interpretation Comments Monocytes # (test code 0.1 See_Comment [Aut omated message] The = Monocytes #) system which generated this result tra nsmitted reference range : <=0.8. The reference r samantha was not used to int erpret this result as normal/abnormal . [place] 768472-06-28 12:33:00 Test Item Value Reference Range Interpretation Comments Macrocyte (test code = 1+ *ABN*(11/25/21 Macrocyte) 7:33 AM) [facility] CenterQhwwvvsMLIYKESYIM1194-24-20 12:33:00 Test Item Value Reference Range Interpretation Comments WBC (test code = WBC) 5.2 3.7-10.4 [facility] CenterPrwouafKNQFNTPKLR2173-61-88 12:33:00 Test Item Value Reference Range Interpretation Comments RBC (test code = RBC) 2.18 4.70-6.10 [place] 768472-06-28 12:33:00 Test Item Value Reference Range Interpretation Comments Hgb (test code = Hgb) 7.8 14.0-18.0 [place] 768472-06-28 12:33:00 Test Item Value Reference Range Interpretation Comments Hct (test code = Hct) 23.6 42.0-54.0 [place] 768472-06-28 12:33:00 Test Item Value Reference Range Interpretation Comments MCV (test code = MCV) 108.4 80.0-94.0 [place] 768472-06-28 12:33:00 Test Item Value Reference Range Interpretation Comments MCH (test code = MCH) 35.9 pg 27.0-31.0 [facility] CenterIkuotncMLAVKKOUCA2548-11-08 12:33:00 Test Item Value Reference Range Interpretation Comments MCHC (test code = MCHC) 33.1 32.0-36.0 [facility] CenterEpkkmmgBLQOJXGXPK2971-79-65 12:33:00 Test Item Value Reference Range Interpretation Comments RDW (test code = RDW) 21.5 11.5-14.5 [place] 768472-06-28 12:33:00 Test Item Value Reference Range Interpretation Comments Platelet (test code = Platelet) 167 133-450 [facility] CenterTzqbbirYOIZYLUOKH9751-85-35 12:33:00 Test Item Value Reference Range Interpretation Comments MPV (test code = MPV) 7.6 7.4-10.4 [place] 768472-06-28 12:33:00 Test Item Value Reference Range Interpretation Comments Segs (test code = Segs) 84.8 45.0-75.0 [place] 768472-06-28 12:33:00 Test Item Value Reference Range Interpretation Comments Lymphocytes (test code = Lymphocytes) 11.6 20.0-40.0 [facility] CenterJnacmyhEBJGUEZWEK0717-11-33 12:33:00 Test Item Value Reference Range Interpretation Comments Monocytes (test code = Monocytes) 2.8 2.0-12.0 [place] 768472-06-28 12:33:00 Test Item Value Reference Range Interpretation Comments Eosinophils (test code = 0.4 See_Comment [A utomated message] The Eosinophils) system which ge nerated this result tra nsmitted reference range : <=4.0. The reference r samantha was not used to int erpret this result as normal/abnormal . [facility] CenterZryhnqwTKMZAIIEWP1403-76-36 12:33:00 Test Item Value Reference Range Interpretation Comments Basophils (test code = 0.4 See_Comment [Aut omated message] The Basophils) system which ge nerated this result tra nsmitted reference range : <=1.0. The reference r samantha was not used to int erpret this result as normal/abnormal . [facility] CenterHketiglRALKUIINYP8289-93-38 12:33:00 Test Item Value Reference Range Interpretation Comments Neutrophils # (test code = Neutrophils 4.4 1.5-8.1 #) [facility] CenterErypwhaQYYDMZXPAZ6108-31-41 12:33:00 Test Item Value Reference Range Interpretation Comments Lymphocytes # (test code = Lymphocytes 0.6 1.0-5.5 #) [place] 768472-06-28 12:33:00 Test Item Value Reference Range Interpretation Comments Monocytes # (test code 0.1 See_Comment [Aut omated message] The = Monocytes #) system which generated this result tra nsmitted reference range : <=0.8. The reference r samantha was not used to int erpret this result as normal/abnormal . [facility] CenterAsvsivqDQBJYQBYSI3038-21-62 12:33:00 Test Item Value Reference Range Interpretation Comments Macrocyte (test code = 1+ *ABN*(11/25/21 Macrocyte) 7:33 AM) [facility] CenterMwrymboIKJPXPCSSG9738-74-37 12:33:00 Test Item Value Reference Range Interpretation Comments WBC (test code = WBC) 5.2 3.7-10.4 [place] 768472-06-28 12:33:00 Test Item Value Reference Range Interpretation Comments RBC (test code = RBC) 2.18 4.70-6.10 [place] 768472-06-28 12:33:00 Test Item Value Reference Range Interpretation Comments Hgb (test code = Hgb) 7.8 14.0-18.0 [place] [address]-06-28 12:33:00 Test Item Value Reference Range Interpretation Comments Hct (test code = Hct) 23.6 42.0-54.0 [place] [address]-06-28 12:33:00 Test Item Value Reference Range Interpretation Comments MCV (test code = MCV) 108.4 80.0-94.0 [place] [address]-06-28 12:33:00 Test Item Value Reference Range Interpretation Comments MCH (test code = MCH) 35.9 pg 27.0-31.0 [place] 768472-06-28 12:33:00 Test Item Value Reference Range Interpretation Comments MCHC (test code = MCHC) 33.1 32.0-36.0 [place] 768472-06-28 12:33:00 Test Item Value Reference Range Interpretation Comments RDW (test code = RDW) 21.5 11.5-14.5 [place] 768472-06-28 12:33:00 Test Item Value Reference Range Interpretation Comments Platelet (test code = Platelet) 167 133-450 [place] 768472-06-28 12:33:00 Test Item Value Reference Range Interpretation Comments MPV (test code = MPV) 7.6 7.4-10.4 [place] 768472-06-28 12:33:00 Test Item Value Reference Range Interpretation Comments Segs (test code = Segs) 84.8 45.0-75.0 [place] 768472-06-28 12:33:00 Test Item Value Reference Range Interpretation Comments Lymphocytes (test code = Lymphocytes) 11.6 20.0-40.0 [place] [address]-06-28 12:33:00 Test Item Value Reference Range Interpretation Comments Monocytes (test code = Monocytes) 2.8 2.0-12.0 [place] [address]-06-28 12:33:00 Test Item Value Reference Range Interpretation Comments Eosinophils (test code = 0.4 See_Comment [A utomated message] The Eosinophils) system which ge nerated this result tra nsmitted reference range : <=4.0. The reference r samantha was not used to int erpret this result as normal/abnormal . [facility] CenterHqbduxiHDMXQPYHGS2414-13-81 12:33:00 Test Item Value Reference Range Interpretation Comments Basophils (test code = 0.4 See_Comment [Aut omated message] The Basophils) system which ge nerated this result tra nsmitted reference range : <=1.0. The reference r samantha was not used to int erpret this result as normal/abnormal . [facility] CenterKnmmvjcNHLRKPROKV6916-28-11 12:33:00 Test Item Value Reference Range Interpretation Comments Neutrophils # (test code = Neutrophils 4.4 1.5-8.1 #) [facility] CenterQylpoptFJBCNKEELJ5806-42-37 12:33:00 Test Item Value Reference Range Interpretation Comments Lymphocytes # (test code = Lymphocytes 0.6 1.0-5.5 #) [facility] CenterDryhesfEHKNGIXVJC3778-67-69 12:33:00 Test Item Value Reference Range Interpretation Comments Monocytes # (test code 0.1 See_Comment [Aut omated message] The = Monocytes #) system which generated this result tra nsmitted reference range : <=0.8. The reference r samantha was not used to int erpret this result as normal/abnormal . [facility] [id number] 12:33:00 Test Item Value Reference Range Interpretation Comments Macrocyte (test code = 1+ *ABN*(11/25/21 Macrocyte) 7:33 AM) [facility][id number] 12:33:00 Test Item Value Reference Range Interpretation Comments WBC (test code = WBC) 5.2 3.7-10.4 [facility] CenterTuibvodORJSMURUTW0281-78-57 12:33:00 Test Item Value Reference Range Interpretation Comments RBC (test code = RBC) 2.18 4.70-6.10 [place] 768472-06-28 12:33:00 Test Item Value Reference Range Interpretation Comments Hgb (test code = Hgb) 7.8 14.0-18.0 [place] [address]-06-28 12:33:00 Test Item Value Reference Range Interpretation Comments Hct (test code = Hct) 23.6 42.0-54.0 [place] 768472-06-28 12:33:00 Test Item Value Reference Range Interpretation Comments MCV (test code = MCV) 108.4 80.0-94.0 [place] 768472-06-28 12:33:00 Test Item Value Reference Range Interpretation Comments MCH (test code = MCH) 35.9 pg 27.0-31.0 [place] 768472-06-28 12:33:00 Test Item Value Reference Range Interpretation Comments MCHC (test code = MCHC) 33.1 32.0-36.0 [place] 768472-06-28 12:33:00 Test Item Value Reference Range Interpretation Comments RDW (test code = RDW) 21.5 11.5-14.5 [place] 768472-06-28 12:33:00 Test Item Value Reference Range Interpretation Comments Platelet (test code = Platelet) 167 133-450 [facility] CenterUvogaxqSHUAUQHPHP7717-26-67 12:33:00 Test Item Value Reference Range Interpretation Comments MPV (test code = MPV) 7.6 7.4-10.4 [facility]2022-06-28 11:17:00 Test Item Value Reference Range Interpretation Comments Vitamin B12 Lvl (test code = Vitamin 1508 B12 Lvl) [facility]2022-06-28 11:17:00 Test Item Value Reference Range Interpretation Comments Folate Lvl (test code = Folate Lvl) 22.3 [facility]2022-06-28 11:17:00 Test Item Value Reference Range Interpretation Comments Ferritin Lvl (test code = Ferritin Lvl) 1423 22275 [facility]2022-06-28 11:17:00 Test Item Value Reference Range Interpretation Comments Glucose Lvl (test code = Glucose Lvl) 205 70-99 [facility]2022-06-28 11:17:00 Test Item Value Reference Range Interpretation Comments BUN (test code = BUN) 60 7-22 [place] 117152-06-28 11:17:00 Test Item Value Reference Range Interpretation Comments Creatinine Lvl (test code = Creatinine 8.46 0.50-1.40 Lvl) [facility]2022-06-28 11:17:00 Test Item Value Reference Range Interpretation Comments Sodium Lvl (test code = Sodium Lvl) 131 135-145 [place] 117152-06-28 11:17:00 Test Item Value Reference Range Interpretation Comments Potassium Lvl (test code = Potassium 5.2 3.5-5.1 Lvl) [place] 117152-06-28 11:17:00 Test Item Value Reference Range Interpretation Comments Chloride Lvl (test code = Chloride Lvl) 93 95-109 [place] 117152-06-28 11:17:00 Test Item Value Reference Range Interpretation Comments CO2 (test code = CO2) 29 24-32 [place] 117152-06-28 11:17:00 Test Item Value Reference Range Interpretation Comments Calcium Lvl (test code = Calcium Lvl) 8.7 8.5-10.5 [place] 117152-06-28 11:17:00 Test Item Value Reference Range Interpretation Comments Total Protein (test code = Total 6.0 6.4-8.4 Protein) [place] 117152-06-28 11:17:00 Test Item Value Reference Range Interpretation Comments Albumin Lvl (test code = Albumin Lvl) 2.6 3.5-5.0 [place] 117152-06-28 11:17:00 Test Item Value Reference Range Interpretation Comments ALT (test code = ALT) 43 See_Comment [Auto mated message] The system which ge nerated this result transmit swathi reference range : <=65. The reference range was not used to interpr et this result as deny l/abnormal. [place] 117152-06-28 11:17:00 Test Item Value Reference Range Interpretation Comments AST (test code = AST) 35 See_Comment [Auto mated message] The system which ge nerated this result transmit swathi reference range : <=37. The reference range was not used to interpr et this result as deny l/abnormal. [place] 117152-06-28 11:17:00 Test Item Value Reference Range Interpretation Comments Alk Phos (test code = Alk Phos) 385 39-136 [place] 117152-06-28 11:17:00 Test Item Value Reference Range Interpretation Comments Bili Total (test code = Bili Total) 1.2 0.2-1.3 [place] 117152-06-28 11:17:00 Test Item Value Reference Range Interpretation Comments AGAP (test code = AGAP) 14.2 10.0-20.0 [facility]2022-06-28 11:17:00 Test Item Value Reference Range Interpretation Comments B/C Ratio (test code = B/C Ratio) 7 1 6-25 [facility]2022-06-28 11:17:00 Test Item Value Reference Range Interpretation Comments Globulin (test code = Globulin) 3.4 2.7-4.2 [facility]2022-06-28 11:17:00 Test Item Value Reference Range Interpretation Comments A/G Ratio (test code = A/G Ratio) 0.8 1 0.7-1.6 [place] 117152-06-28 11:17:00 Test Item Value Reference Range Interpretation Comments eGFR (test code = eGFR) 6 [facility]2022-06-28 11:17:00 Test Item Value Reference Range Interpretation Comments Magnesium Lvl (test code = Magnesium 1.9 1.8-2.4 Lvl) [place] 117152-06-28 11:17:00 Test Item Value Reference Range Interpretation Comments LDH (test code = LDH) 297 98-192 [facility]2022-06-28 11:17:00 Test Item Value Reference Range Interpretation Comments Procalcitonin Lvl (test 0.63 See_Comment [Au tomated message] code = Procalcitonin Lvl) Th e system which generated this result transmitted ref erence range: <=0.10. The reference range was not used to interpr et this result as normal/abnormal . [facility] CenterColkvlmZXPZEZJLXQ8058-52-23 11:17:00 Test Item Value Reference Range Interpretation Comments D-Dimer (test code = D-Dimer) 5.33 [facility] CampusPgolomlESCDJHGLEU8669-44-96 11:17:00 Test Item Value Reference Range Interpretation Comments Hep Bs Ag (test code Negative *NA*(11/25/21 = Hep Bs Ag) 6:17 AM) [place] 944042-06-28 11:17:00 Test Item Value Reference Range Interpretation Comments C-REACTIVE PROTEIN (test code = 134.0 C-REACTIVE PROTEIN) [place] 944042-06-28 11:17:00 Test Item Value Reference Range Interpretation Comments Interleukin 6 (test code = Interleukin 25.99 6) [facility]2022-06-28 11:17:00 Test Item Value Reference Range Interpretation Comments Vitamin B12 Lvl (test code = Vitamin 1508 B12 Lvl) [facility]2022-06-28 11:17:00 Test Item Value Reference Range Interpretation Comments Folate Lvl (test code = Folate Lvl) 22.3 [facility]2022-06-28 11:17:00 Test Item Value Reference Range Interpretation Comments Ferritin Lvl (test code = Ferritin Lvl) 1423 22-275 [facility]2022-06-28 11:17:00 Test Item Value Reference Range Interpretation Comments Glucose Lvl (test code = Glucose Lvl) 205 70-99 [place] 117152-06-28 11:17:00 Test Item Value Reference Range Interpretation Comments BUN (test code = BUN) 60 7-22 [place] 117152-06-28 11:17:00 Test Item Value Reference Range Interpretation Comments Creatinine Lvl (test code = Creatinine 8.46 0.50-1.40 Lvl) [facility]2022-06-28 11:17:00 Test Item Value Reference Range Interpretation Comments Sodium Lvl (test code = Sodium Lvl) 131 135-145 [place] 117152-06-28 11:17:00 Test Item Value Reference Range Interpretation Comments Potassium Lvl (test code = Potassium 5.2 3.5-5.1 Lvl) [place] 117152-06-28 11:17:00 Test Item Value Reference Range Interpretation Comments Chloride Lvl (test code = Chloride Lvl) 93 95-109 [place] 117152-06-28 11:17:00 Test Item Value Reference Range Interpretation Comments CO2 (test code = CO2) 29 24-32 [place] 117152-06-28 11:17:00 Test Item Value Reference Range Interpretation Comments Calcium Lvl (test code = Calcium Lvl) 8.7 8.5-10.5 [facility]2022-06-28 11:17:00 Test Item Value Reference Range Interpretation Comments Total Protein (test code = Total 6.0 6.4-8.4 Protein) [place] 117152-06-28 11:17:00 Test Item Value Reference Range Interpretation Comments Albumin Lvl (test code = Albumin Lvl) 2.6 3.5-5.0 [facility] [id number] 11:17:00 Test Item Value Reference Range Interpretation Comments ALT (test code = ALT) 43 See_Comment [Auto mated message] The system which ge nerated this result transmit swathi reference range : <=65. The reference range was not used to interpr et this result as deny l/abnormal. [facility] [id number] 11:17:00 Test Item Value Reference Range Interpretation Comments AST (test code = AST) 35 See_Comment [Auto mated message] The system which ge nerated this result transmit swathi reference range : <=37. The reference range was not used to interpr et this result as deny l/abnormal. [facility] [id number] 11:17:00 Test Item Value Reference Range Interpretation Comments Alk Phos (test code = Alk Phos) 385 39-136 [facility] [id number] 11:17:00 Test Item Value Reference Range Interpretation Comments Bili Total (test code = Bili Total) 1.2 0.2-1.3 [facility] [id number] 11:17:00 Test Item Value Reference Range Interpretation Comments AGAP (test code = AGAP) 14.2 10.0-20.0 [facility] [id number] 11:17:00 Test Item Value Reference Range Interpretation Comments B/C Ratio (test code = B/C Ratio) 7 1 6-25 [facility] [id number] 11:17:00 Test Item Value Reference Range Interpretation Comments Globulin (test code = Globulin) 3.4 2.7-4.2 [facility] [id number] 11:17:00 Test Item Value Reference Range Interpretation Comments A/G Ratio (test code = A/G Ratio) 0.8 1 0.7-1.6 [facility] [id number] 11:17:00 Test Item Value Reference Range Interpretation Comments eGFR (test code = eGFR) 6 [facility] [id number] 11:17:00 Test Item Value Reference Range Interpretation Comments Magnesium Lvl (test code = Magnesium 1.9 1.8-2.4 Lvl) [facility]2022-06-28 11:17:00 Test Item Value Reference Range Interpretation Comments LDH (test code = LDH) 297 98-192 [facility]2022-06-28 11:17:00 Test Item Value Reference Range Interpretation Comments Procalcitonin Lvl (test 0.63 See_Comment [Au tomated message] code = Procalcitonin Lvl) e system which generated this result transmitted ref erence range: <=0.10. The reference range was not used to interpr et this result as normal/abnormal . [facility] CenterTbpsrseLKSCUSRQKY8293-56-28 11:17:00 Test Item Value Reference Range Interpretation Comments D-Dimer (test code = D-Dimer) 5.33 [place] 944042-06-28 11:17:00 Test Item Value Reference Range Interpretation Comments Hep Bs Ag (test code Negative *NA*(11/25/21 = Hep Bs Ag) 6:17 AM) [place] 944042-06-28 11:17:00 Test Item Value Reference Range Interpretation Comments C-REACTIVE PROTEIN (test code = 134.0 C-REACTIVE PROTEIN) [facility]AP[facility]-74 11:17:00 Test Item Value Reference Range Interpretation Comments Interleukin 6 (test code = Interleukin 25.99 6) [facility]2022-06-28 11:17:00 Test Item Value Reference Range Interpretation Comments Vitamin B12 Lvl (test code = Vitamin 1508 B12 Lvl) [facility]2022-06-28 11:17:00 Test Item Value Reference Range Interpretation Comments Folate Lvl (test code = Folate Lvl) 22.3 [facility]2022-06-28 11:17:00 Test Item Value Reference Range Interpretation Comments Ferritin Lvl (test code = Ferritin Lvl) 1423 22-275 [facility]2022-06-28 11:17:00 Test Item Value Reference Range Interpretation Comments Glucose Lvl (test code = Glucose Lvl) 205 70-99 [facility]2022-06-28 11:17:00 Test Item Value Reference Range Interpretation Comments BUN (test code = BUN) 60 7-22 [facility]2022-06-28 11:17:00 Test Item Value Reference Range Interpretation Comments Creatinine Lvl (test code = Creatinine 8.46 0.50-1.40 Lvl) [place] 117152-06-28 11:17:00 Test Item Value Reference Range Interpretation Comments Sodium Lvl (test code = Sodium Lvl) 131 135-145 [place] 117152-06-28 11:17:00 Test Item Value Reference Range Interpretation Comments Potassium Lvl (test code = Potassium 5.2 3.5-5.1 Lvl) [place] 117152-06-28 11:17:00 Test Item Value Reference Range Interpretation Comments Chloride Lvl (test code = Chloride Lvl) 93 95-109 [place] 117152-06-28 11:17:00 Test Item Value Reference Range Interpretation Comments CO2 (test code = CO2) 29 24-32 [place] 117152-06-28 11:17:00 Test Item Value Reference Range Interpretation Comments Calcium Lvl (test code = Calcium Lvl) 8.7 8.5-10.5 [place] 117152-06-28 11:17:00 Test Item Value Reference Range Interpretation Comments Total Protein (test code = Total 6.0 6.4-8.4 Protein) [place] 117152-06-28 11:17:00 Test Item Value Reference Range Interpretation Comments Albumin Lvl (test code = Albumin Lvl) 2.6 3.5-5.0 [place] 117152-06-28 11:17:00 Test Item Value Reference Range Interpretation Comments ALT (test code = ALT) 43 See_Comment [Auto mated message] The system which ge nerated this result transmit swathi reference range : <=65. The reference range was not used to interpr et this result as deny l/abnormal. [place] 117152-06-28 11:17:00 Test Item Value Reference Range Interpretation Comments AST (test code = AST) 35 See_Comment [Auto mated message] The system which ge nerated this result transmit swathi reference range : <=37. The reference range was not used to interpr et this result as deny l/abnormal. [place] 117152-06-28 11:17:00 Test Item Value Reference Range Interpretation Comments Alk Phos (test code = Alk Phos) 385 39-136 [place] 117152-06-28 11:17:00 Test Item Value Reference Range Interpretation Comments Bili Total (test code = Bili Total) 1.2 0.2-1.3 [facility]2022-06-28 11:17:00 Test Item Value Reference Range Interpretation Comments AGAP (test code = AGAP) 14.2 10.0-20.0 [place] 117152-06-28 11:17:00 Test Item Value Reference Range Interpretation Comments B/C Ratio (test code = B/C Ratio) 7 1 6-25 [facility]2022-06-28 11:17:00 Test Item Value Reference Range Interpretation Comments Globulin (test code = Globulin) 3.4 2.7-4.2 [place] 117152-06-28 11:17:00 Test Item Value Reference Range Interpretation Comments A/G Ratio (test code = A/G Ratio) 0.8 1 0.7-1.6 [facility]2022-06-28 11:17:00 Test Item Value Reference Range Interpretation Comments eGFR (test code = eGFR) 6 [facility]2022-06-28 11:17:00 Test Item Value Reference Range Interpretation Comments Magnesium Lvl (test code = Magnesium 1.9 1.8-2.4 Lvl) [facility]2022-06-28 11:17:00 Test Item Value Reference Range Interpretation Comments LDH (test code = LDH) 297 98-192 [facility]2022-06-28 11:17:00 Test Item Value Reference Range Interpretation Comments Procalcitonin Lvl (test 0.63 See_Comment [Au tomated message] code = Procalcitonin Lvl) Th e system which generated this result transmitted ref erence range: <=0.10. The reference range was not used to interpr et this result as normal/abnormal . [facility]ah[facility]dagJMWQGPRRKB8274-[facility]-57 11:17:00 Test Item Value Reference Range Interpretation Comments D-Dimer (test code = D-Dimer) 5.33 [facility] CampusYfsljguHIBHDGPFXX6482-27-02 11:17:00 Test Item Value Reference Range Interpretation Comments Hep Bs Ag (test code Negative *NA*(11/25/21 = Hep Bs Ag) 6:17 AM) [facility] [id number] 11:17:00 Test Item Value Reference Range Interpretation Comments C-REACTIVE PROTEIN (test code = 134.0 C-REACTIVE PROTEIN) [facility] CampusDjaldbhAMHXBESCED6263-88-23 11:17:00 Test Item Value Reference Range Interpretation Comments Interleukin 6 (test code = Interleukin 25.99 6) [facility]2022-06-28 11:17:00 Test Item Value Reference Range Interpretation Comments Vitamin B12 Lvl (test code = Vitamin 1508 B12 Lvl) [facility]2022-06-28 11:17:00 Test Item Value Reference Range Interpretation Comments Folate Lvl (test code = Folate Lvl) 22.3 [facility]2022-06-28 11:17:00 Test Item Value Reference Range Interpretation Comments Ferritin Lvl (test code = Ferritin Lvl) 1423 22-275 [facility]2022-06-28 11:17:00 Test Item Value Reference Range Interpretation Comments Glucose Lvl (test code = Glucose Lvl) 205 70-99 [facility]2022-06-28 11:17:00 Test Item Value Reference Range Interpretation Comments BUN (test code = BUN) 60 7-22 [facility]2022-06-28 11:17:00 Test Item Value Reference Range Interpretation Comments Creatinine Lvl (test code = Creatinine 8.46 0.50-1.40 Lvl) [facility]2022-06-28 11:17:00 Test Item Value Reference Range Interpretation Comments Sodium Lvl (test code = Sodium Lvl) 131 135-145 [facility]2022-06-28 11:17:00 Test Item Value Reference Range Interpretation Comments Potassium Lvl (test code = Potassium 5.2 3.5-5.1 Lvl) [facility]2022-06-28 11:17:00 Test Item Value Reference Range Interpretation Comments Chloride Lvl (test code = Chloride Lvl) 93 95-109 [facility]2022-06-28 11:17:00 Test Item Value Reference Range Interpretation Comments CO2 (test code = CO2) 29 24-32 [facility]2022-06-28 11:17:00 Test Item Value Reference Range Interpretation Comments Calcium Lvl (test code = Calcium Lvl) 8.7 8.5-10.5 [place] 117152-06-28 11:17:00 Test Item Value Reference Range Interpretation Comments Total Protein (test code = Total 6.0 6.4-8.4 Protein) [place] 117152-06-28 11:17:00 Test Item Value Reference Range Interpretation Comments Albumin Lvl (test code = Albumin Lvl) 2.6 3.5-5.0 [facility]2022-06-28 11:17:00 Test Item Value Reference Range Interpretation Comments ALT (test code = ALT) 43 See_Comment [Auto mated message] The system which ge nerated this result transmit swathi reference range : <=65. The reference range was not used to interpr et this result as deny l/abnormal. [facility] [id number] 11:17:00 Test Item Value Reference Range Interpretation Comments AST (test code = AST) 35 See_Comment [Auto mated message] The system which ge nerated this result transmit swathi reference range : <=37. The reference range was not used to interpr et this result as deny l/abnormal. [facility] [id number] 11:17:00 Test Item Value Reference Range Interpretation Comments Alk Phos (test code = Alk Phos) 385 39-136 [facility] [id number] 11:17:00 Test Item Value Reference Range Interpretation Comments Bili Total (test code = Bili Total) 1.2 0.2-1.3 [facility]2022-06-28 11:17:00 Test Item Value Reference Range Interpretation Comments AGAP (test code = AGAP) 14.2 10.0-20.0 [facility] [id number] 11:17:00 Test Item Value Reference Range Interpretation Comments B/C Ratio (test code = B/C Ratio) 7 1 6-25 [facility] [id number] 11:17:00 Test Item Value Reference Range Interpretation Comments Globulin (test code = Globulin) 3.4 2.7-4.2 [facility] [id number] 11:17:00 Test Item Value Reference Range Interpretation Comments A/G Ratio (test code = A/G Ratio) 0.8 1 0.7-1.6 [facility] [id number] 11:17:00 Test Item Value Reference Range Interpretation Comments eGFR (test code = eGFR) 6 [facility]2022-06-28 11:17:00 Test Item Value Reference Range Interpretation Comments Magnesium Lvl (test code = Magnesium 1.9 1.8-2.4 Lvl) [facility]2022-06-28 11:17:00 Test Item Value Reference Range Interpretation Comments LDH (test code = LDH) 297 98-192 [facility]2022-06-28 11:17:00 Test Item Value Reference Range Interpretation Comments Procalcitonin Lvl (test 0.63 See_Comment [Au tomated message] code = Procalcitonin Lvl) e system which generated this result transmitted ref erence range: <=0.10. The reference range was not used to interpr et this result as normal/abnormal . [facility] CenterDygaeubWHPEGRQLLZ4379-58-90 11:17:00 Test Item Value Reference Range Interpretation Comments D-Dimer (test code = D-Dimer) 5.33 [facility] CampusXhkfjvvRXVZCBVRHZ7166-25-80 11:17:00 Test Item Value Reference Range Interpretation Comments Hep Bs Ag (test code Negative *NA*(11/25/21 = Hep Bs Ag) 6:17 AM) [facility]ViivenhKJHKNWNNUF6486-53-14 11:17:00 Test Item Value Reference Range Interpretation Comments C-REACTIVE PROTEIN (test code = 134.0 C-REACTIVE PROTEIN) [facility]burgFwkdhugQYIVTDXETP4119-81-72 11:17:00 Test Item Value Reference Range Interpretation Comments Interleukin 6 (test code = Interleukin 25.99 6) [facility]2022-06-28 11:17:00 Test Item Value Reference Range Interpretation Comments Vitamin B12 Lvl (test code = Vitamin 1508 B12 Lvl) [facility]2022-06-28 11:17:00 Test Item Value Reference Range Interpretation Comments Folate Lvl (test code = Folate Lvl) 22.3 [facility]2022-06-28 11:17:00 Test Item Value Reference Range Interpretation Comments Ferritin Lvl (test code = Ferritin Lvl) 1423 65-946 [facility]2022-06-28 11:17:00 Test Item Value Reference Range Interpretation Comments Glucose Lvl (test code = Glucose Lvl) 205 70-99 [facility]2022-06-28 11:17:00 Test Item Value Reference Range Interpretation Comments BUN (test code = BUN) 60 7-22 [place] 117152-06-28 11:17:00 Test Item Value Reference Range Interpretation Comments Creatinine Lvl (test code = Creatinine 8.46 0.50-1.40 Lvl) [place] 117152-06-28 11:17:00 Test Item Value Reference Range Interpretation Comments Sodium Lvl (test code = Sodium Lvl) 131 135-145 [place] 117152-06-28 11:17:00 Test Item Value Reference Range Interpretation Comments Potassium Lvl (test code = Potassium 5.2 3.5-5.1 Lvl) [place] 117152-06-28 11:17:00 Test Item Value Reference Range Interpretation Comments Chloride Lvl (test code = Chloride Lvl) 93 95-109 [place] 117152-06-28 11:17:00 Test Item Value Reference Range Interpretation Comments CO2 (test code = CO2) 29 24-32 [place] 117152-06-28 11:17:00 Test Item Value Reference Range Interpretation Comments Calcium Lvl (test code = Calcium Lvl) 8.7 8.5-10.5 [place] 117152-06-28 11:17:00 Test Item Value Reference Range Interpretation Comments Total Protein (test code = Total 6.0 6.4-8.4 Protein) [place] 117152-06-28 11:17:00 Test Item Value Reference Range Interpretation Comments Albumin Lvl (test code = Albumin Lvl) 2.6 3.5-5.0 [place] 117152-06-28 11:17:00 Test Item Value Reference Range Interpretation Comments ALT (test code = ALT) 43 See_Comment [Auto mated message] The system which ge nerated this result transmit swathi reference range : <=65. The reference range was not used to interpr et this result as deny l/abnormal. [place] 117152-06-28 11:17:00 Test Item Value Reference Range Interpretation Comments AST (test code = AST) 35 See_Comment [Auto mated message] The system which ge nerated this result transmit swathi reference range : <=37. The reference range was not used to interpr et this result as deny l/abnormal. [place] 117152-06-28 11:17:00 Test Item Value Reference Range Interpretation Comments Alk Phos (test code = Alk Phos) 385 39-136 [facility]2022-06-28 11:17:00 Test Item Value Reference Range Interpretation Comments Bili Total (test code = Bili Total) 1.2 0.2-1.3 [facility]2022-06-28 11:17:00 Test Item Value Reference Range Interpretation Comments AGAP (test code = AGAP) 14.2 10.0-20.0 [facility]2022-06-28 11:17:00 Test Item Value Reference Range Interpretation Comments B/C Ratio (test code = B/C Ratio) 7 1 6-25 [facility]2022-06-28 11:17:00 Test Item Value Reference Range Interpretation Comments Globulin (test code = Globulin) 3.4 2.7-4.2 [facility]2022-06-28 11:17:00 Test Item Value Reference Range Interpretation Comments A/G Ratio (test code = A/G Ratio) 0.8 1 0.7-1.6 [facility]2022-06-28 11:17:00 Test Item Value Reference Range Interpretation Comments eGFR (test code = eGFR) 6 [facility]2022-06-28 11:17:00 Test Item Value Reference Range Interpretation Comments Magnesium Lvl (test code = Magnesium 1.9 1.8-2.4 Lvl) [facility]2022-06-28 11:17:00 Test Item Value Reference Range Interpretation Comments LDH (test code = LDH) 297 98-192 [facility]2022-06-28 11:17:00 Test Item Value Reference Range Interpretation Comments Procalcitonin Lvl (test 0.63 See_Comment [Au tomated message] code = Procalcitonin Lvl) Th e system which generated this result transmitted ref erence range: <=0.10. The reference range was not used to interpr et this result as normal/abnormal . [facility]FO[facility]356[facility] 11:17:00 Test Item Value Reference Range Interpretation Comments D-Dimer (test code = D-Dimer) 5.33 [facility] CampusJgavybeCOEXHROBFM3160-15-94 11:17:00 Test Item Value Reference Range Interpretation Comments Hep Bs Ag (test code Negative *NA*(11/25/21 = Hep Bs Ag) 6:17 AM) [facility]FmgwcuhAGKFDUTRLJ6206-22-49 11:17:00 Test Item Value Reference Range Interpretation Comments C-REACTIVE PROTEIN (test code = 134.0 C-REACTIVE PROTEIN) [facility]burgZagfmtrFNMBRPCZDL2323-37-60 11:17:00 Test Item Value Reference Range Interpretation Comments Interleukin 6 (test code = Interleukin 25.99 6) [facility]2022-06-28 05:52:00 Test Item Value Reference Range Interpretation Comments RBC product (test code Product available = RBC product) 4(11/25/21 12:52 AM) [facility]2022-06-28 05:52:00 Test Item Value Reference Range Interpretation Comments RBC product (test code Product available = RBC product) 4(11/25/21 12:52 AM) [facility]2022-06-28 05:52:00 Test Item Value Reference Range Interpretation Comments RBC product (test code Product available = RBC product) 4(11/25/21 12:52 AM) [facility] [id number] 05:52:00 Test Item Value Reference Range Interpretation Comments RBC product (test code Product available = RBC product) 4(11/25/21 12:52 AM) [facility] [id number] 05:52:00 Test Item Value Reference Range Interpretation Comments RBC product (test code Product available = RBC product) 4(11/25/21 12:52 AM) [facility]burgGpczqmyWGGQUZFVOE9639-56-57 05:43:00 Test Item Value Reference Range Interpretation Comments Coronavirus (COVID-19) Detected MANUEL (test code = 8*ABN*(11/25/21 12:43 Coronavirus (COVID-19) AM) MANUEL) [facility]burgYobejsbSEOBDBSHKJ2796-34-88 05:43:00 Test Item Value Reference Range Interpretation Comments Coronavirus (COVID-19) Detected MANUEL (test code = 8*ABN*(11/25/21 12:43 Coronavirus (COVID-19) AM) MANUEL) [facility]burgZcauxbiEVAWSXKWFF5907-25-60 05:43:00 Test Item Value Reference Range Interpretation Comments Coronavirus (COVID-19) Detected MANUEL (test code = 8*ABN*(11/25/21 12:43 Coronavirus (COVID-19) AM) MANUEL) [facility]burgAqhyuctZBHUTESEJQ5663-01-60 05:43:00 Test Item Value Reference Range Interpretation Comments Coronavirus (COVID-19) Detected MANUEL (test code = 8*ABN*(11/25/21 12:43 Coronavirus (COVID-19) AM) MANUEL) [facility]burgNrhvkjfBTGXSNCYNF5289-61-17 05:43:00 Test Item Value Reference Range Interpretation Comments Coronavirus (COVID-19) Detected MANUEL (test code = 8*ABN*(11/25/21 12:43 Coronavirus (COVID-19) AM) MANUEL) [facility] AND [id number] 05:23:00 Test Item Value Reference Range Interpretation Comments Occult Bld Stl (test Negative (11/25/21 12:23 code = Occult Bld Stl) AM) [facility] AND [id number] 05:23:00 Test Item Value Reference Range Interpretation Comments Occult Bld Stl (test Negative (11/25/21 12:23 code = Occult Bld Stl) AM) [facility] AND [id number] 05:23:00 Test Item Value Reference Range Interpretation Comments Occult Bld Stl (test Negative (11/25/21 12:23 code = Occult Bld Stl) AM) [facility] AND [id number] 05:23:00 Test Item Value Reference Range Interpretation Comments Occult Bld Stl (test Negative (11/25/21 12:23 code = Occult Bld Stl) AM) [facility] AND [id number] 05:23:00 Test Item Value Reference Range Interpretation Comments Occult Bld Stl (test Negative (11/25/21 12:23 code = Occult Bld Stl) AM) [facility] [id number] 04:12:00 Test Item Value Reference Range Interpretation Comments ABO/Rh (test code = ABO/Rh) AB POS [facility] [employer] [facility] [id number] 04:12:00 Test Item Value Reference Range Interpretation Comments Antibody Scrn (test Negative (11/24/21 code = Antibody Scrn) 11:12 PM) [facility] [id number] 04:12:00 Test Item Value Reference Range Interpretation Comments Total CK (test code = Total CK) 86 12-191 [facility] [id number] 04:12:00 Test Item Value Reference Range Interpretation Comments HS Troponin I (test code = HS Troponin 316 I) [facility]2022-06-28 04:12:00 Test Item Value Reference Range Interpretation Comments Glucose Lvl (test code = Glucose Lvl) 261 70-99 [facility] CampusAble[facility] [id number] 04:12:00 Test Item Value Reference Range Interpretation Comments BUN (test code = BUN) 60 7-22 [facility]2022-06-28 04:12:00 Test Item Value Reference Range Interpretation Comments Creatinine Lvl (test code = Creatinine 8.49 0.50-1.40 Lvl) [facility]2022-06-28 04:12:00 Test Item Value Reference Range Interpretation Comments Sodium Lvl (test code = Sodium Lvl) 133 135-145 [facility] [id number] 04:12:00 Test Item Value Reference Range Interpretation Comments Potassium Lvl (test code = Potassium 4.9 3.5-5.1 Lvl) [facility] [id number] 04:12:00 Test Item Value Reference Range Interpretation Comments Chloride Lvl (test code = Chloride Lvl) 93 95-109 [facility] [id number] 04:12:00 Test Item Value Reference Range Interpretation Comments CO2 (test code = CO2) 31 24-32 [facility]2022-06-28 04:12:00 Test Item Value Reference Range Interpretation Comments Calcium Lvl (test code = Calcium Lvl) 9.1 8.5-10.5 [facility] [id number] 04:12:00 Test Item Value Reference Range Interpretation Comments Total Protein (test code = Total 6.8 6.4-8.4 Protein) [facility]2022-06-28 04:12:00 Test Item Value Reference Range Interpretation Comments Albumin Lvl (test code = Albumin Lvl) 2.5 3.5-5.0 [facility] [id number] 04:12:00 Test Item Value Reference Range Interpretation Comments ALT (test code = ALT) 51 See_Comment [Auto mated message] The system which ge nerated this result transmit swathi reference range : <=65. The reference range was not used to interpr et this result as deny l/abnormal. [facility] CenterL[facility] [id number] 04:12:00 Test Item Value Reference Range Interpretation Comments AST (test code = AST) 36 See_Comment [Auto mated message] The system which ge nerated this result transmit swathi reference range : <=37. The reference range was not used to interpr et this result as deny l/abnormal. [facility] [id number] 04:12:00 Test Item Value Reference Range Interpretation Comments Alk Phos (test code = Alk Phos) 383 39-136 [facility] [id number] 04:12:00 Test Item Value Reference Range Interpretation Comments Bili Total (test code = Bili Total) 1.1 0.2-1.3 [facility]2022-06-28 04:12:00 Test Item Value Reference Range Interpretation Comments AGAP (test code = AGAP) 13.9 10.0-20.0 [facility] [id number] 04:12:00 Test Item Value Reference Range Interpretation Comments B/C Ratio (test code = B/C Ratio) 7 1 6-25 [facility]2022-06-28 04:12:00 Test Item Value Reference Range Interpretation Comments Globulin (test code = Globulin) 4.3 2.7-4.2 [facility] [id number] 04:12:00 Test Item Value Reference Range Interpretation Comments A/G Ratio (test code = A/G Ratio) 0.6 1 0.7-1.6 [facility] CenterPaxVaxON LICENSE OF [id number] 04:12:00 Test Item Value Reference Range Interpretation Comments eGFR (test code = eGFR) 5 [facility] CampusAble[facility] [id number] 04:12:00 Test Item Value Reference Range Interpretation Comments Procalcitonin Lvl (test 0.69 See_Comment [Au tomated message] code = Procalcitonin Lvl) Th e system which generated this result transmitted ref erence range: <=0.10. The reference range was not used to interpr et this result as normal/abnormal . [place] 768472-06-28 04:12:00 Test Item Value Reference Range Interpretation Comments WBC (test code = WBC) 4.1 3.7-10.4 [place] 768472-06-28 04:12:00 Test Item Value Reference Range Interpretation Comments RBC (test code = RBC) 1.78 4.70-6.10 [place] 768472-06-28 04:12:00 Test Item Value Reference Range Interpretation Comments Hgb (test code = Hgb) 6.5 14.0-18.0 [facility] CenterYpvsrslRZKVTIJMZR5416-01-42 04:12:00 Test Item Value Reference Range Interpretation Comments Hct (test code = Hct) 19.5 42.0-54.0 [place] 768472-06-28 04:12:00 Test Item Value Reference Range Interpretation Comments MCV (test code = MCV) 110.0 80.0-94.0 [place] 768472-06-28 04:12:00 Test Item Value Reference Range Interpretation Comments MCH (test code = MCH) 36.5 pg 27.0-31.0 [facility] [id number] 04:12:00 Test Item Value Reference Range Interpretation Comments MCHC (test code = MCHC) 33.2 32.0-36.0 [facility] CenterYcnsapxWUDXARCSVZ6925-52-89 04:12:00 Test Item Value Reference Range Interpretation Comments RDW (test code = RDW) 19.0 11.5-14.5 [place] 768472-06-28 04:12:00 Test Item Value Reference Range Interpretation Comments Platelet (test code = Platelet) 180 133-450 [facility] CenterBzeanseVWCVNOFOAQ7719-44-26 04:12:00 Test Item Value Reference Range Interpretation Comments MPV (test code = MPV) 8.3 7.4-10.4 [place] [address]-06-28 04:12:00 Test Item Value Reference Range Interpretation Comments PTT (test code = PTT) 45.4 s 22.9-35.8 [place] 768472-06-28 04:12:00 Test Item Value Reference Range Interpretation Comments PT (test code = PT) 19.1 s 12.0-14.7 [place] 768472-06-28 04:12:00 Test Item Value Reference Range Interpretation Comments INR (test code = INR) 1.62 1 0.85-1.17 [facility] CenterDwahadqBUBPCQCZFJ4362-48-86 04:12:00 Test Item Value Reference Range Interpretation Comments RBC Morph (test code = See Note (11/24/21 RBC Morph) 11:12 PM) [place] 768472-06-28 04:12:00 Test Item Value Reference Range Interpretation Comments Plt Morph (test code = Normal (11/24/21 11:12 Plt Morph) PM) [facility] CenterExddynbXNUKEQDKDX8049-62-99 04:12:00 Test Item Value Reference Range Interpretation Comments Segs (test code = Segs) 72.2 45.0-75.0 [place] 768472-06-28 04:12:00 Test Item Value Reference Range Interpretation Comments Lymphocytes (test code = Lymphocytes) 16.2 20.0-40.0 [place] 768472-06-28 04:12:00 Test Item Value Reference Range Interpretation Comments Monocytes (test code = Monocytes) 8.0 2.0-12.0 [facility] CenterQgywxshOALSJHVEXY2994-91-52 04:12:00 Test Item Value Reference Range Interpretation Comments Eosinophils (test code = 2.7 See_Comment [A utomated message] The Eosinophils) system which ge nerated this result tra nsmitted reference range : <=4.0. The reference r samantha was not used to int erpret this result as normal/abnormal . [facility] CenterXumybiwVECQYOPGOT0768-56-27 04:12:00 Test Item Value Reference Range Interpretation Comments Basophils (test code = 0.9 See_Comment [Aut omated message] The Basophils) system which ge nerated this result tra nsmitted reference range : <=1.0. The reference r samantha was not used to int erpret this result as normal/abnormal . [facility] CenterBiydlnpUWCTTHNRPO0347-17-45 04:12:00 Test Item Value Reference Range Interpretation Comments Neutrophils # (test code = Neutrophils 2.9 1.5-8.1 #) [facility] CenterItcmqhtEMVGACVUIV5423-96-82 04:12:00 Test Item Value Reference Range Interpretation Comments Lymphocytes # (test code = Lymphocytes 0.7 1.0-5.5 #) [place] 768472-06-28 04:12:00 Test Item Value Reference Range Interpretation Comments Monocytes # (test code 0.3 See_Comment [Aut omated message] The = Monocytes #) system which generated this result tra nsmitted reference range : <=0.8. The reference r samantha was not used to int erpret this result as normal/abnormal . [facility] CampusRjsseymRFNIAAUAQD4225-75-55 04:12:00 Test Item Value Reference Range Interpretation Comments Eosinophils # (test code 0.1 See_Comment [A utomated message] The = Eosinophils #) system whic h generated this result tra nsmitted reference range : <=0.5. The reference r samantha was not used to int erpret this result as normal/abnormal . [facility] CampusAqwzcylVMAZQRZTSM3949-56-74 04:12:00 Test Item Value Reference Range Interpretation Comments Anisocyte (test code = 1+ *ABN*(11/24/21 Anisocyte) 11:12 PM) [facility] CampusCmyktpaVEYZSUPMZO9723-83-55 04:12:00 Test Item Value Reference Range Interpretation Comments Macrocyte (test code = 1+ *ABN*(11/24/21 Macrocyte) 11:12 PM) [facility] CampusLmkkctuUEPKRHESBI6795-29-93 04:12:00 Test Item Value Reference Range Interpretation Comments Microcyte (test code = 1+ *ABN*(11/24/21 Microcyte) 11:12 PM) [facility] CenterExper[facility] [id number] 04:12:00 Test Item Value Reference Range Interpretation Comments ABO/Rh (test code = ABO/Rh) AB POS [facility] CenterExper[facility] [id number] 04:12:00 Test Item Value Reference Range Interpretation Comments Antibody Scrn (test Negative (11/24/21 code = Antibody Scrn) 11:12 PM) [facility] 04:12:00 Test Item Value Reference Range Interpretation Comments Total CK (test code = Total CK) 86 12-191 [facility] 04:12:00 Test Item Value Reference Range Interpretation Comments HS Troponin I (test code = HS Troponin 316 I) [facility] CenterReko Global WaterWEBQP6519-11-86 04:12:00 Test Item Value Reference Range Interpretation Comments Glucose Lvl (test code = Glucose Lvl) 261 70-99 [facility] [employer]2022-06-28 04:12:00 Test Item Value Reference Range Interpretation Comments BUN (test code = BUN) 60 7-22 [place] 117152-06-28 04:12:00 Test Item Value Reference Range Interpretation Comments Creatinine Lvl (test code = Creatinine 8.49 0.50-1.40 Lvl) [place] 117152-06-28 04:12:00 Test Item Value Reference Range Interpretation Comments Sodium Lvl (test code = Sodium Lvl) 133 135-145 [place] 117152-06-28 04:12:00 Test Item Value Reference Range Interpretation Comments Potassium Lvl (test code = Potassium 4.9 3.5-5.1 Lvl) [place] 117152-06-28 04:12:00 Test Item Value Reference Range Interpretation Comments Chloride Lvl (test code = Chloride Lvl) 93 95-109 [place] 117152-06-28 04:12:00 Test Item Value Reference Range Interpretation Comments CO2 (test code = CO2) 31 24-32 [place] 117152-06-28 04:12:00 Test Item Value Reference Range Interpretation Comments Calcium Lvl (test code = Calcium Lvl) 9.1 8.5-10.5 [place] 117152-06-28 04:12:00 Test Item Value Reference Range Interpretation Comments Total Protein (test code = Total 6.8 6.4-8.4 Protein) [place] 117152-06-28 04:12:00 Test Item Value Reference Range Interpretation Comments Albumin Lvl (test code = Albumin Lvl) 2.5 3.5-5.0 [place] 117152-06-28 04:12:00 Test Item Value Reference Range Interpretation Comments ALT (test code = ALT) 51 See_Comment [Auto mated message] The system which ge nerated this result transmit swathi reference range : <=65. The reference range was not used to interpr et this result as deny l/abnormal. [place] 117152-06-28 04:12:00 Test Item Value Reference Range Interpretation Comments AST (test code = AST) 36 See_Comment [Auto mated message] The system which ge nerated this result transmit swathi reference range : <=37. The reference range was not used to interpr et this result as deny l/abnormal. [facility]2022-06-28 04:12:00 Test Item Value Reference Range Interpretation Comments Alk Phos (test code = Alk Phos) 383 39-136 [place] 117152-06-28 04:12:00 Test Item Value Reference Range Interpretation Comments Bili Total (test code = Bili Total) 1.1 0.2-1.3 [place] 117152-06-28 04:12:00 Test Item Value Reference Range Interpretation Comments AGAP (test code = AGAP) 13.9 10.0-20.0 [place] 117152-06-28 04:12:00 Test Item Value Reference Range Interpretation Comments B/C Ratio (test code = B/C Ratio) 7 1 6-25 [place] 117152-06-28 04:12:00 Test Item Value Reference Range Interpretation Comments Globulin (test code = Globulin) 4.3 2.7-4.2 [place] 117152-06-28 04:12:00 Test Item Value Reference Range Interpretation Comments A/G Ratio (test code = A/G Ratio) 0.6 1 0.7-1.6 [place] 117152-06-28 04:12:00 Test Item Value Reference Range Interpretation Comments eGFR (test code = eGFR) 5 [place] 117152-06-28 04:12:00 Test Item Value Reference Range Interpretation Comments Procalcitonin Lvl (test 0.69 See_Comment [Au tomated message] code = Procalcitonin Lvl) Th e system which generated this result transmitted ref erence range: <=0.10. The reference range was not used to interpr et this result as normal/abnormal . [facility] CampusVtkwgyqZLBLBLXOOE0956-75-96 04:12:00 Test Item Value Reference Range Interpretation Comments WBC (test code = WBC) 4.1 3.7-10.4 [place] 768472-06-28 04:12:00 Test Item Value Reference Range Interpretation Comments RBC (test code = RBC) 1.78 4.70-6.10 [place] 768472-06-28 04:12:00 Test Item Value Reference Range Interpretation Comments Hgb (test code = Hgb) 6.5 14.0-18.0 [place] 768472-06-28 04:12:00 Test Item Value Reference Range Interpretation Comments Hct (test code = Hct) 19.5 42.0-54.0 [facility] CenterGgpjzkiYTGJQMCWBM4403-53-92 04:12:00 Test Item Value Reference Range Interpretation Comments MCV (test code = MCV) 110.0 80.0-94.0 [facility] CenterYwhxpbuGKJMUHYTLI1400-75-91 04:12:00 Test Item Value Reference Range Interpretation Comments MCH (test code = MCH) 36.5 pg 27.0-31.0 [facility] CenterSikonmdGVTNZGAPOY3709-38-28 04:12:00 Test Item Value Reference Range Interpretation Comments MCHC (test code = MCHC) 33.2 32.0-36.0 [facility] CenterNeyiyehSIHYMRLGFP0752-81-49 04:12:00 Test Item Value Reference Range Interpretation Comments RDW (test code = RDW) 19.0 11.5-14.5 [facility] CenterGdnhgtxZGDVUOISBT1322-05-87 04:12:00 Test Item Value Reference Range Interpretation Comments Platelet (test code = Platelet) 180 133-450 [facility] CenterFleqoxxMKQGTOBIML9870-21-66 04:12:00 Test Item Value Reference Range Interpretation Comments MPV (test code = MPV) 8.3 7.4-10.4 [facility] CenterFfohtyxRNDDCLKYSN4055-51-21 04:12:00 Test Item Value Reference Range Interpretation Comments PTT (test code = PTT) 45.4 s 22.9-35.8 [facility] CenterEkiabekFEMYUWVELN1509-98-27 04:12:00 Test Item Value Reference Range Interpretation Comments PT (test code = PT) 19.1 s 12.0-14.7 [facility] CenterWicmiogGLKZGZOHNN3687-26-10 04:12:00 Test Item Value Reference Range Interpretation Comments INR (test code = INR) 1.62 1 0.85-1.17 [facility] CenterWqsupgiQVQQWMOJHO5381-61-47 04:12:00 Test Item Value Reference Range Interpretation Comments RBC Morph (test code = See Note (11/24/21 RBC Morph) 11:12 PM) [facility] CenterYfpgbjaMWWOFUXBDZ9288-90-77 04:12:00 Test Item Value Reference Range Interpretation Comments Plt Morph (test code = Normal (11/24/21 11:12 Plt Morph) PM) [facility] CenterXcmlktuQTDBQFYPSQ4192-08-43 04:12:00 Test Item Value Reference Range Interpretation Comments Segs (test code = Segs) 72.2 45.0-75.0 [place] 768472-06-28 04:12:00 Test Item Value Reference Range Interpretation Comments Lymphocytes (test code = Lymphocytes) 16.2 20.0-40.0 [place] 768472-06-28 04:12:00 Test Item Value Reference Range Interpretation Comments Monocytes (test code = Monocytes) 8.0 2.0-12.0 [place] 768472-06-28 04:12:00 Test Item Value Reference Range Interpretation Comments Eosinophils (test code = 2.7 See_Comment [A utomated message] The Eosinophils) system which ge nerated this result tra nsmitted reference range : <=4.0. The reference r samantha was not used to int erpret this result as normal/abnormal . [place] [address]-06-28 04:12:00 Test Item Value Reference Range Interpretation Comments Basophils (test code = 0.9 See_Comment [Aut omated message] The Basophils) system which ge nerated this result tra nsmitted reference range : <=1.0. The reference r samantha was not used to int erpret this result as normal/abnormal . [place] 768472-06-28 04:12:00 Test Item Value Reference Range Interpretation Comments Neutrophils # (test code = Neutrophils 2.9 1.5-8.1 #) [place] 768472-06-28 04:12:00 Test Item Value Reference Range Interpretation Comments Lymphocytes # (test code = Lymphocytes 0.7 1.0-5.5 #) [place] 768472-06-28 04:12:00 Test Item Value Reference Range Interpretation Comments Monocytes # (test code 0.3 See_Comment [Aut omated message] The = Monocytes #) system which generated this result tra nsmitted reference range : <=0.8. The reference r samantha was not used to int erpret this result as normal/abnormal . [place] 768472-06-28 04:12:00 Test Item Value Reference Range Interpretation Comments Eosinophils # (test code 0.1 See_Comment [A utomated message] The = Eosinophils #) system wh h generated this result tra nsmitted reference range : <=0.5. The reference r samantha was not used to int erpret this result as normal/abnormal . [facility] CenterDwgdbqgGFXVIVNCPA3696-57-93 04:12:00 Test Item Value Reference Range Interpretation Comments Anisocyte (test code = 1+ *ABN*(11/24/21 Anisocyte) 11:12 PM) [facility] CampusBnkvgrbYBWIGFKUUG6593-73-45 04:12:00 Test Item Value Reference Range Interpretation Comments Macrocyte (test code = 1+ *ABN*(11/24/21 Macrocyte) 11:12 PM) [facility] CenterWfjcfpdTRGGEZTTIL9379-40-93 04:12:00 Test Item Value Reference Range Interpretation Comments Microcyte (test code = 1+ *ABN*(11/24/21 Microcyte) 11:12 PM) [facility] CenterExper[facility] [id number] 04:12:00 Test Item Value Reference Range Interpretation Comments ABO/Rh (test code = ABO/Rh) AB POS [facility] [id number] 04:12:00 Test Item Value Reference Range Interpretation Comments Antibody Scrn (test Negative (11/24/21 code = Antibody Scrn) 11:12 PM) [facility] CenterLegal River [id number] 04:12:00 Test Item Value Reference Range Interpretation Comments Total CK (test code = Total CK) 86 12-191 [facility] [id number] 04:12:00 Test Item Value Reference Range Interpretation Comments HS Troponin I (test code = HS Troponin 316 I) [facility] [employer]2022-06-28 04:12:00 Test Item Value Reference Range Interpretation Comments Glucose Lvl (test code = Glucose Lvl) 261 70-99 [facility] [employer]2022-06-28 04:12:00 Test Item Value Reference Range Interpretation Comments BUN (test code = BUN) 60 7-22 [facility] [employer]2022-06-28 04:12:00 Test Item Value Reference Range Interpretation Comments Creatinine Lvl (test code = Creatinine 8.49 0.50-1.40 Lvl) [facility] [employer]2022-06-28 04:12:00 Test Item Value Reference Range Interpretation Comments Sodium Lvl (test code = Sodium Lvl) 133 135-145 [facility] [employer]2022-06-28 04:12:00 Test Item Value Reference Range Interpretation Comments Potassium Lvl (test code = Potassium 4.9 3.5-5.1 Lvl) [place] 117152-06-28 04:12:00 Test Item Value Reference Range Interpretation Comments Chloride Lvl (test code = Chloride Lvl) 93 95-109 [place] 117152-06-28 04:12:00 Test Item Value Reference Range Interpretation Comments CO2 (test code = CO2) 31 24-32 [place] 117152-06-28 04:12:00 Test Item Value Reference Range Interpretation Comments Calcium Lvl (test code = Calcium Lvl) 9.1 8.5-10.5 [place] 117152-06-28 04:12:00 Test Item Value Reference Range Interpretation Comments Total Protein (test code = Total 6.8 6.4-8.4 Protein) [place] 117152-06-28 04:12:00 Test Item Value Reference Range Interpretation Comments Albumin Lvl (test code = Albumin Lvl) 2.5 3.5-5.0 [place] 117152-06-28 04:12:00 Test Item Value Reference Range Interpretation Comments ALT (test code = ALT) 51 See_Comment [Auto mated message] The system which ge nerated this result transmit swathi reference range : <=65. The reference range was not used to interpr et this result as deny l/abnormal. [place] 117152-06-28 04:12:00 Test Item Value Reference Range Interpretation Comments AST (test code = AST) 36 See_Comment [Auto mated message] The system which ge nerated this result transmit swathi reference range : <=37. The reference range was not used to interpr et this result as deny l/abnormal. [place] 117152-06-28 04:12:00 Test Item Value Reference Range Interpretation Comments Alk Phos (test code = Alk Phos) 383 39-136 [place] 117152-06-28 04:12:00 Test Item Value Reference Range Interpretation Comments Bili Total (test code = Bili Total) 1.1 0.2-1.3 [place] 117152-06-28 04:12:00 Test Item Value Reference Range Interpretation Comments AGAP (test code = AGAP) 13.9 10.0-20.0 [place] 117152-06-28 04:12:00 Test Item Value Reference Range Interpretation Comments B/C Ratio (test code = B/C Ratio) 7 1 6-25 [place] 117152-06-28 04:12:00 Test Item Value Reference Range Interpretation Comments Globulin (test code = Globulin) 4.3 2.7-4.2 [place] 117152-06-28 04:12:00 Test Item Value Reference Range Interpretation Comments A/G Ratio (test code = A/G Ratio) 0.6 1 0.7-1.6 [place] 117152-06-28 04:12:00 Test Item Value Reference Range Interpretation Comments eGFR (test code = eGFR) 5 [place] 117152-06-28 04:12:00 Test Item Value Reference Range Interpretation Comments Procalcitonin Lvl (test 0.69 See_Comment [Au tomated message] code = Procalcitonin Lvl) Th e system which generated this result transmitted ref erence range: <=0.10. The reference range was not used to interpr et this result as normal/abnormal . [facility] CenterSrzhwnqTMSWGVTTIO4764-24-24 04:12:00 Test Item Value Reference Range Interpretation Comments WBC (test code = WBC) 4.1 3.7-10.4 [place] 768472-06-28 04:12:00 Test Item Value Reference Range Interpretation Comments RBC (test code = RBC) 1.78 4.70-6.10 [place] 768472-06-28 04:12:00 Test Item Value Reference Range Interpretation Comments Hgb (test code = Hgb) 6.5 14.0-18.0 [place] 768472-06-28 04:12:00 Test Item Value Reference Range Interpretation Comments Hct (test code = Hct) 19.5 42.0-54.0 [place] 768472-06-28 04:12:00 Test Item Value Reference Range Interpretation Comments MCV (test code = MCV) 110.0 80.0-94.0 [place] 768472-06-28 04:12:00 Test Item Value Reference Range Interpretation Comments MCH (test code = MCH) 36.5 pg 27.0-31.0 [place] 768472-06-28 04:12:00 Test Item Value Reference Range Interpretation Comments MCHC (test code = MCHC) 33.2 32.0-36.0 [facility] CenterJqergreSBQSCVACEL1618-62-47 04:12:00 Test Item Value Reference Range Interpretation Comments RDW (test code = RDW) 19.0 11.5-14.5 [facility] CenterHrsuyurEJUSJWFNDA5571-94-77 04:12:00 Test Item Value Reference Range Interpretation Comments Platelet (test code = Platelet) 180 133-450 [facility] CenterDiwwttrDXWYRBROUR4728-74-89 04:12:00 Test Item Value Reference Range Interpretation Comments MPV (test code = MPV) 8.3 7.4-10.4 [facility] CenterMmhznpxBYHSGSELVJ2751-92-04 04:12:00 Test Item Value Reference Range Interpretation Comments PTT (test code = PTT) 45.4 s 22.9-35.8 [facility] CenterOndtihiKWSTWBBGSA9205-52-95 04:12:00 Test Item Value Reference Range Interpretation Comments PT (test code = PT) 19.1 s 12.0-14.7 [facility] CenterUoqydipBCTXGXMNWR9147-76-74 04:12:00 Test Item Value Reference Range Interpretation Comments INR (test code = INR) 1.62 1 0.85-1.17 [facility] CenterBlwpuckWBTSUGJNBM3648-79-43 04:12:00 Test Item Value Reference Range Interpretation Comments RBC Morph (test code = See Note (11/24/21 RBC Morph) 11:12 PM) [facility] CenterCqgoxtpUJNKDDWOAD4907-89-71 04:12:00 Test Item Value Reference Range Interpretation Comments Plt Morph (test code = Normal (11/24/21 11:12 Plt Morph) PM) [facility] CenterUlcrzupRHSJTGDQHL8623-77-32 04:12:00 Test Item Value Reference Range Interpretation Comments Segs (test code = Segs) 72.2 45.0-75.0 [facility] CenterUuvwmzbIKZFPISVJJ7323-64-44 04:12:00 Test Item Value Reference Range Interpretation Comments Lymphocytes (test code = Lymphocytes) 16.2 20.0-40.0 [place] 768472-06-28 04:12:00 Test Item Value Reference Range Interpretation Comments Monocytes (test code = Monocytes) 8.0 2.0-12.0 [facility] CenterIrfpriqXJIRAAJBTK1156-62-43 04:12:00 Test Item Value Reference Range Interpretation Comments Eosinophils (test code = 2.7 See_Comment [A utomated message] The Eosinophils) system which ge nerated this result tra nsmitted reference range : <=4.0. The reference r samantha was not used to int erpret this result as normal/abnormal . [facility] CenterHdrjswzQVLMHTPQXK9181-04-22 04:12:00 Test Item Value Reference Range Interpretation Comments Basophils (test code = 0.9 See_Comment [Aut omated message] The Basophils) system which ge nerated this result tra nsmitted reference range : <=1.0. The reference r samantha was not used to int erpret this result as normal/abnormal . [facility] CenterAgfwzcdUDWNOXISYO3859-86-08 04:12:00 Test Item Value Reference Range Interpretation Comments Neutrophils # (test code = Neutrophils 2.9 1.5-8.1 #) [facility] CenterHnanshfWCPYVEMCQW0799-49-62 04:12:00 Test Item Value Reference Range Interpretation Comments Lymphocytes # (test code = Lymphocytes 0.7 1.0-5.5 #) [facility] CenterKjfyenkUCHYKVJAZZ4505-48-15 04:12:00 Test Item Value Reference Range Interpretation Comments Monocytes # (test code 0.3 See_Comment [Aut omated message] The = Monocytes #) system which generated this result tra nsmitted reference range : <=0.8. The reference r samantha was not used to int erpret this result as normal/abnormal . [facility] CenterZrgvtaxOWMFJAZONF0652-87-63 04:12:00 Test Item Value Reference Range Interpretation Comments Eosinophils # (test code 0.1 See_Comment [A utomated message] The = Eosinophils #) system whic h generated this result tra nsmitted reference range : <=0.5. The reference r samantha was not used to int erpret this result as normal/abnormal . [facility] CenterGonukxlVFYRKLJIOR8621-98-03 04:12:00 Test Item Value Reference Range Interpretation Comments Anisocyte (test code = 1+ *ABN*(11/24/21 Anisocyte) 11:12 PM) [facility] CenterTerylxiGZFOAZQUMP6394-52-58 04:12:00 Test Item Value Reference Range Interpretation Comments Macrocyte (test code = 1+ *ABN*(11/24/21 Macrocyte) 11:12 PM) [facility] CenterOkwscehIUTFKGUIGZ3164-83-51 04:12:00 Test Item Value Reference Range Interpretation Comments Microcyte (test code = 1+ *ABN*(11/24/21 Microcyte) 11:12 PM) [facility] CenterZola Books [facility] [id number] 04:12:00 Test Item Value Reference Range Interpretation Comments ABO/Rh (test code = ABO/Rh) AB POS [facility] [id number] 04:12:00 Test Item Value Reference Range Interpretation Comments Antibody Scrn (test Negative (11/24/21 code = Antibody Scrn) 11:12 PM) [facility] Centeri[facility] [employer] [id number] 04:12:00 Test Item Value Reference Range Interpretation Comments Total CK (test code = Total CK) 86 12-191 [facility] [id number] 04:12:00 Test Item Value Reference Range Interpretation Comments HS Troponin I (test code = HS Troponin 316 I) [facility] [employer]2022-06-28 04:12:00 Test Item Value Reference Range Interpretation Comments Glucose Lvl (test code = Glucose Lvl) 261 70-99 [facility] [employer] [id number] 04:12:00 Test Item Value Reference Range Interpretation Comments BUN (test code = BUN) 60 7-22 [facility] [employer] [id number] 04:12:00 Test Item Value Reference Range Interpretation Comments Creatinine Lvl (test code = Creatinine 8.49 0.50-1.40 Lvl) [facility] [employer]2022-06-28 04:12:00 Test Item Value Reference Range Interpretation Comments Sodium Lvl (test code = Sodium Lvl) 133 135-145 [facility] [id number] 04:12:00 Test Item Value Reference Range Interpretation Comments Potassium Lvl (test code = Potassium 4.9 3.5-5.1 Lvl) [facility] [employer]2022-06-28 04:12:00 Test Item Value Reference Range Interpretation Comments Chloride Lvl (test code = Chloride Lvl) 93 95-109 [facility] [id number] 04:12:00 Test Item Value Reference Range Interpretation Comments CO2 (test code = CO2) 31 24-32 [facility] [facility] [id number] 04:12:00 Test Item Value Reference Range Interpretation Comments Calcium Lvl (test code = Calcium Lvl) 9.1 8.5-10.5 [place] 117152-06-28 04:12:00 Test Item Value Reference Range Interpretation Comments Total Protein (test code = Total 6.8 6.4-8.4 Protein) [place] 117152-06-28 04:12:00 Test Item Value Reference Range Interpretation Comments Albumin Lvl (test code = Albumin Lvl) 2.5 3.5-5.0 [place] 117152-06-28 04:12:00 Test Item Value Reference Range Interpretation Comments ALT (test code = ALT) 51 See_Comment [Auto mated message] The system which ge nerated this result transmit swathi reference range : <=65. The reference range was not used to interpr et this result as deny l/abnormal. [place] 117152-06-28 04:12:00 Test Item Value Reference Range Interpretation Comments AST (test code = AST) 36 See_Comment [Auto mated message] The system which ge nerated this result transmit swathi reference range : <=37. The reference range was not used to interpr et this result as deny l/abnormal. [place] 117152-06-28 04:12:00 Test Item Value Reference Range Interpretation Comments Alk Phos (test code = Alk Phos) 383 39-136 [facility] CenterPaxVaxADAM VILLE [id number] 04:12:00 Test Item Value Reference Range Interpretation Comments Bili Total (test code = Bili Total) 1.1 0.2-1.3 [place] 117152-06-28 04:12:00 Test Item Value Reference Range Interpretation Comments AGAP (test code = AGAP) 13.9 10.0-20.0 [facility] CenterLaguo [id number] 04:12:00 Test Item Value Reference Range Interpretation Comments B/C Ratio (test code = B/C Ratio) 7 1 6-25 [place] [address]-06-28 04:12:00 Test Item Value Reference Range Interpretation Comments Globulin (test code = Globulin) 4.3 2.7-4.2 [facility] CampusAbleSky [id number] 04:12:00 Test Item Value Reference Range Interpretation Comments A/G Ratio (test code = A/G Ratio) 0.6 1 0.7-1.6 [facility] [id number] 04:12:00 Test Item Value Reference Range Interpretation Comments eGFR (test code = eGFR) 5 [facility] [id number] 04:12:00 Test Item Value Reference Range Interpretation Comments Procalcitonin Lvl (test 0.69 See_Comment [Au tomated message] code = Procalcitonin Lvl) Th e system which generated this result transmitted ref erence range: <=0.10. The reference range was not used to interpr et this result as normal/abnormal . [facility] CenterAdunqkwBREEWXILZO2456-03-12 04:12:00 Test Item Value Reference Range Interpretation Comments WBC (test code = WBC) 4.1 3.7-10.4 [facility] CenterHopeabsQGCCUKMMRI3338-36-57 04:12:00 Test Item Value Reference Range Interpretation Comments RBC (test code = RBC) 1.78 4.70-6.10 [facility] CenterRoscjrjQRPYCNVFRD4704-36-61 04:12:00 Test Item Value Reference Range Interpretation Comments Hgb (test code = Hgb) 6.5 14.0-18.0 [facility] CenterZdpsplmZJYUQBZBXQ7668-36-09 04:12:00 Test Item Value Reference Range Interpretation Comments Hct (test code = Hct) 19.5 42.0-54.0 [facility] CenterDokyqonTNMODFFCPK3634-22-41 04:12:00 Test Item Value Reference Range Interpretation Comments MCV (test code = MCV) 110.0 80.0-94.0 [facility] CenterKusbephIUVARYYMYU7430-95-81 04:12:00 Test Item Value Reference Range Interpretation Comments MCH (test code = MCH) 36.5 pg 27.0-31.0 [facility] CenterPwdoljzQHHHHXPVRJ3548-11-28 04:12:00 Test Item Value Reference Range Interpretation Comments MCHC (test code = MCHC) 33.2 32.0-36.0 [facility] CenterUgswixoVYMBXMLXKW2098-26-78 04:12:00 Test Item Value Reference Range Interpretation Comments RDW (test code = RDW) 19.0 11.5-14.5 [facility] CenterKtypndfKYSXUYXPEV8473-41-20 04:12:00 Test Item Value Reference Range Interpretation Comments Platelet (test code = Platelet) 180 133-450 [facility] CenterYqphgtjACFFEUWXPT2301-93-66 04:12:00 Test Item Value Reference Range Interpretation Comments MPV (test code = MPV) 8.3 7.4-10.4 [facility] CenterOyvdmmtGNMGFTCFTR5838-77-33 04:12:00 Test Item Value Reference Range Interpretation Comments PTT (test code = PTT) 45.4 s 22.9-35.8 [place] 768472-06-28 04:12:00 Test Item Value Reference Range Interpretation Comments PT (test code = PT) 19.1 s 12.0-14.7 [place] 768472-06-28 04:12:00 Test Item Value Reference Range Interpretation Comments INR (test code = INR) 1.62 1 0.85-1.17 [place] 768472-06-28 04:12:00 Test Item Value Reference Range Interpretation Comments RBC Morph (test code = See Note (11/24/21 RBC Morph) 11:12 PM) [facility] CenterElxrycwDVNLWQFKMY9390-63-09 04:12:00 Test Item Value Reference Range Interpretation Comments Plt Morph (test code = Normal (11/24/21 11:12 Plt Morph) PM) [facility] CenterUhexdqtOTSZYZPKCV2185-99-92 04:12:00 Test Item Value Reference Range Interpretation Comments Segs (test code = Segs) 72.2 45.0-75.0 [facility] CenterCmtgvrwAXIPFSDQEK6256-06-27 04:12:00 Test Item Value Reference Range Interpretation Comments Lymphocytes (test code = Lymphocytes) 16.2 20.0-40.0 [facility] CenterBbwqgfuQFHJGJHGJQ4442-24-53 04:12:00 Test Item Value Reference Range Interpretation Comments Monocytes (test code = Monocytes) 8.0 2.0-12.0 [facility] CenterXouhvljMGGFDHMIRY7324-08-83 04:12:00 Test Item Value Reference Range Interpretation Comments Eosinophils (test code = 2.7 See_Comment [A utomated message] The Eosinophils) system which ge nerated this result tra nsmitted reference range : <=4.0. The reference r samantha was not used to int erpret this result as normal/abnormal . [facility] CenterZsqdalhOYIACAWPRP7839-14-73 04:12:00 Test Item Value Reference Range Interpretation Comments Basophils (test code = 0.9 See_Comment [Aut omated message] The Basophils) system which ge nerated this result tra nsmitted reference range : <=1.0. The reference r samantha was not used to int erpret this result as normal/abnormal . [facility] CenterAncfralJTDHOPQXBJ5244-53-95 04:12:00 Test Item Value Reference Range Interpretation Comments Neutrophils # (test code = Neutrophils 2.9 1.5-8.1 #) [facility] CenterAggquwuPDKBSJXCVL2816-00-52 04:12:00 Test Item Value Reference Range Interpretation Comments Lymphocytes # (test code = Lymphocytes 0.7 1.0-5.5 #) [facility] CenterDvbmxfeARZGXFAOXB2865-84-46 04:12:00 Test Item Value Reference Range Interpretation Comments Monocytes # (test code 0.3 See_Comment [Aut omated message] The = Monocytes #) system which generated this result tra nsmitted reference range : <=0.8. The reference r samantha was not used to int erpret this result as normal/abnormal . [facility] CenterBhsyvtlRAVLVYTYFY4635-45-55 04:12:00 Test Item Value Reference Range Interpretation Comments Eosinophils # (test code 0.1 See_Comment [A utomated message] The = Eosinophils #) system whic h generated this result tra nsmitted reference range : <=0.5. The reference r samantha was not used to int erpret this result as normal/abnormal . [facility] CenterAprrexdNTSMMHJKYI6130-72-70 04:12:00 Test Item Value Reference Range Interpretation Comments Anisocyte (test code = 1+ *ABN*(11/24/21 Anisocyte) 11:12 PM) [facility] CenterTnapcabSKQZUAAKZQ0555-66-16 04:12:00 Test Item Value Reference Range Interpretation Comments Macrocyte (test code = 1+ *ABN*(11/24/21 Macrocyte) 11:12 PM) [facility] CenterPwihnzrENRLCUAXPD1382-03-19 04:12:00 Test Item Value Reference Range Interpretation Comments Microcyte (test code = 1+ *ABN*(11/24/21 Microcyte) 11:12 PM) [facility] LBWKTOV3413-95-17 04:12:00 Test Item Value Reference Range Interpretation Comments ABO/Rh (test code = ABO/Rh) AB POS [facility] [id number] 04:12:00 Test Item Value Reference Range Interpretation Comments Antibody Scrn (test Negative (11/24/21 code = Antibody Scrn) 11:12 PM) [facility]ILD [facility]eleservicesH[facility] [id number] 04:12:00 Test Item Value Reference Range Interpretation Comments Total CK (test code = Total CK) 86 12-191 [facility] PQNQVUL0767-73-53 04:12:00 Test Item Value Reference Range Interpretation Comments HS Troponin I (test code = HS Troponin 316 I) [facility]2022-06-28 04:12:00 Test Item Value Reference Range Interpretation Comments Glucose Lvl (test code = Glucose Lvl) 261 70-99 [facility]2022-06-28 04:12:00 Test Item Value Reference Range Interpretation Comments BUN (test code = BUN) 60 7-22 [facility]2022-06-28 04:12:00 Test Item Value Reference Range Interpretation Comments Creatinine Lvl (test code = Creatinine 8.49 0.50-1.40 Lvl) [facility]2022-06-28 04:12:00 Test Item Value Reference Range Interpretation Comments Sodium Lvl (test code = Sodium Lvl) 133 135-145 [facility]2022-06-28 04:12:00 Test Item Value Reference Range Interpretation Comments Potassium Lvl (test code = Potassium 4.9 3.5-5.1 Lvl) [facility]2022-06-28 04:12:00 Test Item Value Reference Range Interpretation Comments Chloride Lvl (test code = Chloride Lvl) 93 95-109 [facility]2022-06-28 04:12:00 Test Item Value Reference Range Interpretation Comments CO2 (test code = CO2) 31 24-32 [facility]2022-06-28 04:12:00 Test Item Value Reference Range Interpretation Comments Calcium Lvl (test code = Calcium Lvl) 9.1 8.5-10.5 [facility]2022-06-28 04:12:00 Test Item Value Reference Range Interpretation Comments Total Protein (test code = Total 6.8 6.4-8.4 Protein) [facility]2022-06-28 04:12:00 Test Item Value Reference Range Interpretation Comments Albumin Lvl (test code = Albumin Lvl) 2.5 3.5-5.0 [facility]2022-06-28 04:12:00 Test Item Value Reference Range Interpretation Comments ALT (test code = ALT) 51 See_Comment [Auto mated message] The system which ge nerated this result transmit swathi reference range : <=65. The reference range was not used to interpr et this result as deny l/abnormal. [facility] [id number] 04:12:00 Test Item Value Reference Range Interpretation Comments AST (test code = AST) 36 See_Comment [Auto mated message] The system which ge nerated this result transmit swathi reference range : <=37. The reference range was not used to interpr et this result as deny l/abnormal. [facility] [id number] 04:12:00 Test Item Value Reference Range Interpretation Comments Alk Phos (test code = Alk Phos) 383 39-136 [facility] [id number] 04:12:00 Test Item Value Reference Range Interpretation Comments Bili Total (test code = Bili Total) 1.1 0.2-1.3 [facility] [id number] 04:12:00 Test Item Value Reference Range Interpretation Comments AGAP (test code = AGAP) 13.9 10.0-20.0 [facility] [id number] 04:12:00 Test Item Value Reference Range Interpretation Comments B/C Ratio (test code = B/C Ratio) 7 1 6-25 [facility] [id number] 04:12:00 Test Item Value Reference Range Interpretation Comments Globulin (test code = Globulin) 4.3 2.7-4.2 [facility] [id number] 04:12:00 Test Item Value Reference Range Interpretation Comments A/G Ratio (test code = A/G Ratio) 0.6 1 0.7-1.6 [facility] [id number] 04:12:00 Test Item Value Reference Range Interpretation Comments eGFR (test code = eGFR) 5 [facility] [id number] 04:12:00 Test Item Value Reference Range Interpretation Comments Procalcitonin Lvl (test 0.69 See_Comment [Au tomated message] code = Procalcitonin Lvl) Th e system which generated this result transmitted ref erence range: <=0.10. The reference range was not used to interpr et this result as normal/abnormal . [facility] CenterUrvzatjRMREYLTBXU3343-82-06 04:12:00 Test Item Value Reference Range Interpretation Comments WBC (test code = WBC) 4.1 3.7-10.4 [place] [id number] 04:12:00 Test Item Value Reference Range Interpretation Comments RBC (test code = RBC) 1.78 4.70-6.10 [place] [id number] 04:12:00 Test Item Value Reference Range Interpretation Comments Hgb (test code = Hgb) 6.5 14.0-18.0 [place] [id number] 04:12:00 Test Item Value Reference Range Interpretation Comments Hct (test code = Hct) 19.5 42.0-54.0 [place] [id number] 04:12:00 Test Item Value Reference Range Interpretation Comments MCV (test code = MCV) 110.0 80.0-94.0 [place] [id number] 04:12:00 Test Item Value Reference Range Interpretation Comments MCH (test code = MCH) 36.5 pg 27.0-31.0 [facility]bj[facility]qPIUACLDFSN7548-16-98 04:12:00 Test Item Value Reference Range Interpretation Comments MCHC (test code = MCHC) 33.2 32.0-36.0 [facility] CenterUlvduayKAYFYGHVIZ1643-70-74 04:12:00 Test Item Value Reference Range Interpretation Comments RDW (test code = RDW) 19.0 11.5-14.5 [facility] CenterGjftygxBGOIESJSNK2627-26-12 04:12:00 Test Item Value Reference Range Interpretation Comments Platelet (test code = Platelet) 180 133-450 [facility] CenterXvesrnuHEGTGSERZS1598-92-43 04:12:00 Test Item Value Reference Range Interpretation Comments MPV (test code = MPV) 8.3 7.4-10.4 [place] [id number] 04:12:00 Test Item Value Reference Range Interpretation Comments PTT (test code = PTT) 45.4 s 22.9-35.8 [place] [id number] 04:12:00 Test Item Value Reference Range Interpretation Comments PT (test code = PT) 19.1 s 12.0-14.7 [place] 768472-06-28 04:12:00 Test Item Value Reference Range Interpretation Comments INR (test code = INR) 1.62 1 0.85-1.17 [facility] CenterHtjnieaOMWESLIFBU5550-10-91 04:12:00 Test Item Value Reference Range Interpretation Comments RBC Morph (test code = See Note (11/24/21 RBC Morph) 11:12 PM) [facility] CenterLnsayxwSIYWILXJSN6413-76-22 04:12:00 Test Item Value Reference Range Interpretation Comments Plt Morph (test code = Normal (11/24/21 11:12 Plt Morph) PM) [facility] CenterUqpdochMSGWWIDFPV5897-52-46 04:12:00 Test Item Value Reference Range Interpretation Comments Segs (test code = Segs) 72.2 45.0-75.0 [facility] CenterSqwbxfvWKEHFUKXGJ3818-55-28 04:12:00 Test Item Value Reference Range Interpretation Comments Lymphocytes (test code = Lymphocytes) 16.2 20.0-40.0 [facility] CenterZytvaxrQAMYEUTQXX7906-82-64 04:12:00 Test Item Value Reference Range Interpretation Comments Monocytes (test code = Monocytes) 8.0 2.0-12.0 [facility] C[id number] 04:12:00 Test Item Value Reference Range Interpretation Comments Eosinophils (test code = 2.7 See_Comment [A utomated message] The Eosinophils) system which ge nerated this result tra nsmitted reference range : <=4.0. The reference r samantha was not used to int erpret this result as normal/abnormal . [facility] CenterAmltytrTDLKHEQEOQ3184-22-14 04:12:00 Test Item Value Reference Range Interpretation Comments Basophils (test code = 0.9 See_Comment [Aut omated message] The Basophils) system which ge nerated this result tra nsmitted reference range : <=1.0. The reference r samantha was not used to int erpret this result as normal/abnormal . [facility] CenterGtligmlGDAFVKXIZH9974-88-77 04:12:00 Test Item Value Reference Range Interpretation Comments Neutrophils # (test code = Neutrophils 2.9 1.5-8.1 #) [facility] CenterFzrpzcqDDLHZYGGPW2387-21-46 04:12:00 Test Item Value Reference Range Interpretation Comments Lymphocytes # (test code = Lymphocytes 0.7 1.0-5.5 #) [facility] [id number] 04:12:00 Test Item Value Reference Range Interpretation Comments Monocytes # (test code 0.3 See_Comment [Aut omated message] The = Monocytes #) system which generated this result tra nsmitted reference range : <=0.8. The reference r samantha was not used to int erpret this result as normal/abnormal . [facility] CenterNvqgaljQOOTXFMZXC7793-18-30 04:12:00 Test Item Value Reference Range Interpretation Comments Eosinophils # (test code 0.1 See_Comment [A utomated message] The = Eosinophils #) system whic h generated this result tra nsmitted reference range : <=0.5. The reference r samantha was not used to int erpret this result as normal/abnormal . [facility] CenterMihojzpIROPHBLSHZ6312-20-93 04:12:00 Test Item Value Reference Range Interpretation Comments Anisocyte (test code = 1+ *ABN*(11/24/21 Anisocyte) 11:12 PM) [facility]RuulthfLUDCISWQZF8110-55-05 04:12:00 Test Item Value Reference Range Interpretation Comments Macrocyte (test code = 1+ *ABN*(11/24/21 Macrocyte) 11:12 PM) [facility] CenterVehflbrIMWMOHXHZR7981-15-48 04:12:00 Test Item Value Reference Range Interpretation Comments Microcyte (test code = 1+ *ABN*(11/24/21 Microcyte) 11:12 PM) [facility] CenterOGLOB[facility] [id number] 00:00:00 Test Item Value Reference Range Interpretation Comments A1C (test code = 4548-4) 8.8 HEMOGLOBIN [id number] 00:00:00 Test Item Value Reference Range Interpretation Comments A1C (test code = 4548-4) 8.3 HEMOGLOBIN [id number] 00:00:00 Test Item Value Reference Range Interpretation Comments A1C (test code = 4548-4) 10.3
[2022-11-08] MEDS ORDERED: LIDOCAINE 4% PATCH ONE (20:24)
[2022-11-08] MEDS ORDERED: KETOROLAC 30 MG/ML INJ ONE (20:24)
[2022-11-08 20:30] LABS: Absolute Lymphocytes (CBC) 0.9 K/uL (0.7-4.9); Hematocrit 23.8 % (39.6-49.0); Lymphocytes % 17.8 % (15.3-44.8); MCV 84.6 fL (80-100); MPV 7.2 fL (7.6-11.3); RBC Red Blood Cell Count 2.82 M/uL (4.33-5.43)
[2022-11-08 20:46] LABS: Potassium 6.8 mEq/L (3.5-5.1)
[2022-11-08] MEDS ORDERED: SOD POLYSTYREN SUL 15 GM/60 ML UCUP ONE (21:11)
[2022-11-08] MEDS ORDERED: ALBUTEROL 2.5 MG/3 ML NEB SOL ONE (21:11)
[2022-11-08] MEDS ORDERED: CALCIUM GLUCONATE 1 GM IVPB 2 GM/100 ML BAG IV ONE (21:12)
--- NOTE | 2022-11-08 21:14 | RAD REPORT ---
EXAM DESCRIPTION: Tony Single View11/08/2022 9:06 pm CLINICAL HISTORY: Shortness of breath COMPARISON: August 2022 FINDINGS: Moderate right pleural effusion with right basilar atelectasis Left lung appears clear The heart is moderately to markedly enlarged
--- NOTE | 2022-11-08 21:19 | EDPHYS ---
Physician Documentation [facility] Name: Guzman Mayers Age: 77 yrs Sex: Male : 1945 Arrival Date: 11/08/2022 Time: 19:57 Bed 7 Private MD: ED Physician Mohinder Valenzuela HPI: 11/08 21:14 This 77 yrs old Male presents to ER via EMS with complaints of low back pain. kb 21:14 The patient presents with pain that is chronic. The symptoms are located in the low kb back. The pain does not radiate. The problem was sustained from a chronic condition. Onset: The symptoms/episode began/occurred 3 month(s) ago. Modifying factors: The patient symptoms are alleviated by nothing, the patient symptoms are aggravated by sitting position. Associated signs and symptoms: The patient has no apparent associated signs or symptoms. Severity of symptoms: At their worst the symptoms were moderate, in the emergency department the symptoms are unchanged. The patient has experienced similar episodes in the past. The patient has not recently seen a physician. Pt reports low back pain that started 2-3 months ago after a fall that caused a fracture. States the pain has been worse since the beginning of the week and he was unable to go to dialysis on Wednesday because of it. . Historical: - Allergies: 20:05 Codeine; jb4 20:05 GABAPENTIN; jb4 - Home Meds: 20:05 aspirin 81 mg Oral tablet, delayed release (enteric coated) 2 times per day [Active]; jb4 atorvastatin 40 mg Oral tablet daily [Active]; carvedilol 6.25 mg Oral tablet 2 times per day [Active]; Dialyvite 800 800 mcg Oral tablet,chewable daily [Active]; metoprolol tartrate 25 mg Oral tablet 0.5 tab 2 times per day [Active]; pantoprazole 40 mg Oral tablet, delayed release (enteric coated) daily [Active]; sevelamer carbonate 800 mg Oral tablet 3 times per day [Active]; - PMHx: 20:05 ADD/ADHD; CHF; CKD; COPD; Diabetes - IDDM; Dialysis; MWF; High Cholesterol; HTN; jb4 Hypertension; 20:21 dialysis tues, thurs, sat, uses o2 when sleeping.; rv - Immunization history:: Adult Immunizations unknown. - Social history:: Smoking status: Patient denies any tobacco usage or history of. ROS: 21:04 Constitutional: Negative for fever, chills, and weight loss. kb 21:04 Back: Positive for pain at rest, pain with movement, of the lumbar area. 21:04 All other systems are negative. Exam: 21:04 Constitutional: This is a well developed, well nourished patient who is awake, alert, kb and in no acute distress. Head/Face: Normocephalic, atraumatic. ENT: Moist Mucous membranes Cardiovascular: Regular rate and rhythm with a normal S1 and S2. No gallops, murmurs, or rubs. No pulse deficits. Respiratory: Respirations even and unlabored. No increased work of breathing. Talking in full sentences Abdomen/GI: Soft, non-tender. No distention Back: No spinal tenderness. No costovertebral tenderness. Full range of motion. Skin: Warm, dry with normal turgor. Normal color. MS/ Extremity: Pulses equal, no cyanosis. Neurovascular intact. Full, normal range of motion. Neuro: Awake and alert, GCS 15, oriented to person, place, time, and situation. Moves all extremities. Normal gait. Vital Signs: 20:00 BP 125 / 73; Pulse 64; Resp 16; Temp 98.1(TE); Pulse Ox 98% on 2.5 lpm NC; jb4 21:49 BP 159 / 69; Pulse 66; Resp 18; Pulse Ox 97% on Nebulizer Mask; jb4 22:25 BP 143 / 61; Pulse 82; Resp 17; Pulse Ox 99% on 2.5 lpm NC; jb4 MDM: 20:05 Patient medically screened. bs3 21:04 Data reviewed: vital signs, nurses notes. kb 21:05 Differential diagnosis: arthritis, strain, fracture, Herniated disc. Consideration of kb Admission/Observation Patient was admitted/placed on observation. 21:12 Management of patient was discussed with the following: Hospitalist: MICHELLE Adams accepts pt kb under Dr Lane. Surgical Specialist: Discussed case with Dr Sanchez, will call out dialysis nurse. Historians other than the Patient: EMS: [facility]. Care significantly affected by the following chronic conditions: Diabetes, Hypertension, Congestive Heart Failure, Chronic Kidney Disease. Counseling: I had a detailed discussion with the patient and/or guardian regarding: the historical points, exam findings, and any diagnostic results supporting the discharge/admit diagnosis, lab results, the need for further work-up and treatment in the hospital. 11/08 20:10 Order name: CBC with Diff; Complete Time: 20:47 kb 11/08 20:10 Order name: Basic Metabolic Panel; Complete Time: 20:48 kb 11/08 20:47 Order name: BNP; Complete Time: 21:42 kb 11/08 20:48 Order name: Chest Single View XRAY; Complete Time: 21:15 kb 11/08 20:10 Order name: IV Start; Complete Time: 20:17 kb Administered Medications: 20:20 Drug: Ketorolac IVP 15 mg Route: IVP; Site: right antecubital; rv 20:20 Drug: Lidoderm Topical Patch 5 % (700 mg/patch) 1 patches Route: Topical; Site: rv affected area; 20:50 CANCELLED (Physician Discretion): Sodium Bicarbonate IVP 1 amp IVP once; (50 mL); kb equals 50 mEq 21:22 Drug: Calcium Gluconate IVPB 2 grams Route: IVPB; Infused Over: 60 mins; Site: right jb4 antecubital; 21:22 Drug: Albuterol Inhalation 10 mg Route: Inhalation; jb4 21:35 Drug: Kayexalate PO 30 grams Route: PO; jb4 Disposition Summary: 11/08/22 21:17 Hospitalization Ordered Hospitalization Status: Observation kb Location: Telemetry/MedSurg (observation) kb Condition: Stable kb Problem: new kb Symptoms: are unchanged kb Bed/Room Type: Standard kb Provider: Wendi Ruiz(11/08/22 21:18) la1 Room Assignment: 230(11/08/22 21:46) Diagnosis - Hyperkalemia kb - Chronic kidney disease, unspecified kb - Anemia in chronic kidney disease kb - Low back pain kb Forms: - Medication Reconciliation Form kb - SBAR form kb Signatures: Dispatcher [employer] Susana Sahw FNP-C FNP-Leonciob Bryan Harrington FNP-C FNP-ClaJanice Iqbal RN RN cg Jonny Alonso RN RN jb4 Kike Monique RN RN rv Mohinder Valenzuela MD MD bs3 Corrections: (The following items were deleted from the chart) 20:50 20:49 Sodium Bicarbonate IVP 1 amp IVP once; (50 mL); equals 50 mEq ordered. coreen kb 21:18 21:[address] kb la1 21:46 21:17 kb
--- NOTE | 2022-11-08 21:19 | ER ---
Nurse's Notes [facility] Name: Guzman Mayers Age: 77 yrs Sex: Male : 1945 Arrival Date: 11/08/2022 Time: 19:57 Bed 7 Private MD: Diagnosis: Hyperkalemia;Chronic kidney disease, unspecified;Anemia in chronic kidney disease;Low back pain Presentation: 11/08 20:00 Chief complaint: EMS states: Pt fell 2 months ago and is having pain with sitting or jb4 moving. He missed dialysis on Wednesday and had a blood transfusions about a week ago. Coronavirus screen: At this time, the client does not indicate any symptoms associated with coronavirus-19. Ebola Screen: No symptoms or risks identified at this time. Initial Sepsis Screen: Does the patient meet any 2 criteria? No. Patient's initial sepsis screen is negative. Does the patient have a suspected source of infection? No. Patient's initial sepsis screen is negative. Risk Assessment: Do you want to hurt yourself or someone else? Patient reports no desire to harm self or others. Onset of symptoms was November 08, 2022. Transition of care: patient was not received from another setting of care. 20:00 Method Of Arrival: EMS: [facility] jb4 20:00 Acuity: CHICHO 3 jb4 Historical: - Allergies: 20:05 Codeine; jb4 20:05 GABAPENTIN; jb4 - Home Meds: 20:05 aspirin 81 mg Oral tablet, delayed release (enteric coated) 2 times per day [Active]; jb4 atorvastatin 40 mg Oral tablet daily [Active]; carvedilol 6.25 mg Oral tablet 2 times per day [Active]; Dialyvite 800 800 mcg Oral tablet,chewable daily [Active]; metoprolol tartrate 25 mg Oral tablet 0.5 tab 2 times per day [Active]; pantoprazole 40 mg Oral tablet, delayed release (enteric coated) daily [Active]; sevelamer carbonate 800 mg Oral tablet 3 times per day [Active]; - PMHx: 20:05 ADD/ADHD; CHF; CKD; COPD; Diabetes - IDDM; Dialysis; MWF; High Cholesterol; HTN; jb4 Hypertension; 20:21 dialysis tues, thurs, sat, uses o2 when sleeping.; rv - Immunization history:: Adult Immunizations unknown. - Social history:: Smoking status: Patient denies any tobacco usage or history of. Screenin:[facility] ED Fall Risk Assessment (Adult) History of falling in the last 3 months, jb4 including since admission No falls in past 3 months (0 pts) Confusion or Disorientation No (0 pts) Score/Fall Risk Level 0 - 2 = Low Risk. Abuse screen: Denies threats or abuse. Nutritional screening: No deficits noted. Tuberculosis screening: No symptoms or risk factors identified. Assessment: 20:06 General: Appears in no apparent distress. comfortable, Behavior is calm, cooperative, jb4 appropriate for age. Pain: Complains of pain in back Pain does not radiate. Pain currently is 0 out of 10 on a pain scale. at worst was 10 out of 10 on a pain scale. Neuro: Level of Consciousness is awake, alert, obeys commands, Oriented to person, place, time, situation. Cardiovascular: Patient's skin is warm and dry. Respiratory: Airway is patent Respiratory effort is even, unlabored, Respiratory pattern is regular, symmetrical. GI: No signs and/or symptoms were reported involving the gastrointestinal system. : No signs and/or symptoms were reported regarding the genitourinary system. EENT: No signs and/or symptoms were reported regarding the EENT system. Derm: Skin is intact, Skin is pink, warm \T\ dry. Musculoskeletal: Circulation, motion, and sensation intact. Range of motion: intact in all extremities. 21:49 Reassessment: Patient appears in no apparent distress at this time. Patient and/or jb4 family updated on plan of care and expected duration. Pain level reassessed. Patient is alert, oriented x 3, equal unlabored respirations, skin warm/dry/pink. 21:53 Reassessment: attempted to call report, instructed to wait for call back. jb4 22:25 Reassessment: Patient appears in no apparent distress at this time. Patient and/or jb4 family updated on plan of care and expected duration. Pain level reassessed. Patient is alert, oriented x 3, equal unlabored respirations, skin warm/dry/pink. Patient states feeling better. Vital Signs: 20:00 BP 125 / 73; Pulse 64; Resp 16; Temp 98.1(TE); Pulse Ox 98% on 2.5 lpm NC; jb4 21:49 BP 159 / 69; Pulse 66; Resp 18; Pulse Ox 97% on Nebulizer Mask; jb4 22:25 BP 143 / 61; Pulse 82; Resp 17; Pulse Ox 99% on 2.5 lpm NC; jb4 ED Course: 20:00 Patient arrived in ED. jb4 20:04 Triage completed. jb4 20:05 Arm band placed on. jb4 20:06 Patient has correct armband on for positive identification. Bed in low position. Call jb4 light in reach. Side rails up X 1. Client placed on continuous cardiac and pulse oximetry monitoring. NIBP monitoring applied. 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 20:09 Susana Mesa FNP-C is PHCP. kb 20:09 Mohinder Valenzuela MD is Attending Physician. kb 20:15 Initial lab(s) drawn, by me, sent to lab. Inserted saline lock: 20 gauge in right jb4 antecubital area, using aseptic technique. Blood collected. 20:15 Missed attempt(s): 18 gauge in right forearm. Bleeding controlled, band aid applied, jb4 catheter tip intact. 20:20 Kike Monique, RN is Primary Nurse. rv 20:20 Inserted saline lock: 20 gauge in right antecubital area, using aseptic technique. rv Blood collected. 20:21 No provider procedures requiring assistance completed. rv 21:08 Chest Single View XRAY In Process Unspecified. EDMS 21:[address] MD is Hospitalizing Provider. kb 21:18 Hospitalizing Provider role handed off by Salo Lane MD la1 21:18 Wendi Ruiz MD is Hospitalizing Provider. la1 22:25 Patient admitted, IV remains in place. jb4 Administered Medications: 20:20 Drug: Ketorolac IVP 15 mg Route: IVP; Site: right antecubital; rv 20:20 Drug: Lidoderm Topical Patch 5 % (700 mg/patch) 1 patches Route: Topical; Site: rv affected area; 20:50 CANCELLED (Physician Discretion): Sodium Bicarbonate IVP 1 amp IVP once; (50 mL); kb equals 50 mEq 21:22 Drug: Calcium Gluconate IVPB 2 grams Route: IVPB; Infused Over: 60 mins; Site: right jb4 antecubital; 21:22 Drug: Albuterol Inhalation 10 mg Route: Inhalation; jb4 21:35 Drug: Kayexalate PO 30 grams Route: PO; jb4 Medication: 20:06 VIS not applicable for this client. jb4 Outcome: 21:17 Decision to Hospitalize by Provider. kb 22:25 Admitted to Med/surg accompanied by tech, via stretcher, room 230, with oxygen, with jb4 chart. 22:25 Condition: stable 22:25 Discharge instructions given to patient, Instructed on the need for admit, Demonstrated understanding of instructions. 22:28 Patient left the ED. jb4 Signatures: Dispatcher [employer] EDMS Susana Mesa, STAFF TRAINER-C STAFF TRAINER-Ckb Bryan Harrington STAFF TRAINER-C STAFF TRAINER-Cla1 Jonny Alonso, RN RN jb4 Kike Monique, RN RN rv Corrections: (The following items were deleted from the chart) 20:05 20:00 Acuity: CHICHO 4 jb4 jb4
[2022-11-08] MEDS ORDERED: MORPHINE 2 MG/ML SYR IV PRN (21:37)
[2022-11-08] MEDS ORDERED: ACETAMINOPHEN 500 MG TAB PO PRN (21:37)
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
[2022-11-08] MEDS ORDERED: MORPHINE 2 MG/ML SYR ONE (21:48)
[2022-11-08 23:08] VITALS: BMI 22.7
[2022-11-09 03:39] LABS: Absolute Lymphocytes (CBC) 0.7 K/uL (0.7-4.9); Hematocrit 21.2 % (39.6-49.0); Lymphocytes % 19.2 % (15.3-44.8); MCV 84.1 fL (80-100); MPV 7.2 fL (7.6-11.3); RBC Red Blood Cell Count 2.52 M/uL (4.33-5.43)
[2022-11-09 03:53] LABS: Potassium 4.1 mEq/L (3.5-5.1)
[2022-11-09 05:49] LABS: Hepatitis B Surface Ab - Quant 4.73 mIU/mL (<8.0); Hepatitis B surface AG Interp. Nonreactive (Nonreactive)
[2022-11-09] MEDS: INSULIN -REGULAR HUMAN 50 UNIT/0.5 ML ML SQ SCH ×4 (07:30→20:35)
--- NOTE | 2022-11-09 12:02 | EKG ---
Test Date: 2022-11-08 Test Time: 20:13:14 Geography Instructor: RV MEASUREMENT RESULTS: Intervals: Rate: 67 DE: QRSD: 186 QT: 464 QTc: 490 [place]: P: DE: QRS: -89 T: 42 INTERPRETIVE STATEMENTS: Atrial fibrillation Left axis deviation Right bundle branch block Inferior infarct, age undetermined Anterior infarct, age undetermined Abnormal ECG Compared to ECG 10/31/2022 13:27:04 Left-axis deviation now present Myocardial infarct finding still present Electronically Signed On 11-09-22 12:00:27 CDT by Francisco Saucedo
[2022-11-09 15:12] LABS: Absolute Lymphocytes (CBC) 0.5 K/uL (0.7-4.9); Hematocrit 24.7 % (39.6-49.0); Lymphocytes % 13.6 % (15.3-44.8); MCV 84.7 fL (80-100); MPV 7.3 fL (7.6-11.3); RBC Red Blood Cell Count 2.91 M/uL (4.33-5.43)
[2022-11-09 15:28] LABS: Potassium 3.9 mEq/L (3.5-5.1)
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
[2022-11-10 00:26] VITALS: TEMP 97.5
[2022-11-10 04:32] LABS: Absolute Lymphocytes (CBC) 0.8 K/uL (0.7-4.9); Hematocrit 22.6 % (39.6-49.0); Lymphocytes % 17.2 % (15.3-44.8); MCV 85.2 fL (80-100); MPV 7.4 fL (7.6-11.3); RBC Red Blood Cell Count 2.65 M/uL (4.33-5.43)
[2022-11-10 04:36] LABS: Potassium 4.2 mEq/L (3.5-5.1)
[2022-11-10 04:48] VITALS: O2SAT 100
--- NOTE | 2022-11-10 06:09 | P.PN ---
Date of Service: 11/09/22 Subjective Patient is doing better. Hemodialysis and then possible discharge if hemoglobin is stable. Physical Examination - Physical Exam General: Alert, In no apparent distress, Oriented x3 Respiratory: Clear to auscultation bilaterally, Normal air movement Cardiovascular: Regular rate/rhythm, Normal S1 S2 Gastrointestinal: Normal bowel sounds, No tenderness Musculoskeletal: No tenderness Neurological: no focal deficits Assessment and Plan -Assessment Assessment: ESRD on HD MWF with noncompliancehyperkalemia/EKG changes Diabetes mellitus type 2insulin-dependent with hyperglycemia Chronic atrial fibrillation not on chronic anticoagulation Anemia of chronic disease Chronic diastolic congestive heart failure Hypertension hyperlipidemia Worsening chronic back pain - Plan Plan: ESRD on HD MWF with noncompliancehyperkalemia/EKG changes Given Kayexalate, albuterol, calcium gluconate in ER, nephrology was contacted by ED provider who is arranging for dialysis currently. He reports he is unable to make it to dialysis as he was having severe lower back pain. He has a appointment with pain management on Wednesday for his chronic back pain. Diabetes mellitus type 2insulin-dependent with hyperglycemia ACHS Accu-Chek, mild sliding scale insulin, continue medications. Chronic atrial fibrillation not on chronic anticoagulation He has required multiple blood transfusions in the past has severe anemia of chronic disease, for this reason he is not on anticoagulation. Continue SCDs. Anemia of chronic disease Monitor CBC daily, hemoglobin currently 8. Chronic diastolic congestive heart failure Hypertension hyperlipidemia Continue home medications Worsening chronic back pain Outpatient follow-up with pain management.
[2022-11-10] MEDS: INSULIN -REGULAR HUMAN 50 UNIT/0.5 ML ML SQ SCH (07:30)
[2022-11-10 09:06] VITALS: BP 140/48
== END 2022-11-10 10:59 | disposition home or self-care (01) ==
LOC: ER 19:57 → ERHOLD 21:27 → 2ND 21:53
PROVIDERS: ADMIT Hospitalist; ATTEND Hospitalist
DX: N18.6 End stage renal disease (principal); E11.22 Type 2 diabetes mellitus with diabetic chronic kidney disease; I12.0 Hypertensive chronic kidney disease with stage 5 chronic kidney disease or end stage renal disease; J44.9 Chronic obstructive pulmonary disease, unspecified; D63.1 Anemia in chronic kidney disease; E78.5 Hyperlipidemia, unspecified; M54.9 Dorsalgia, unspecified; I48.11 Longstanding persistent atrial fibrillation; N25.0 Renal osteodystrophy; Z99.2 Dependence on renal dialysis; Z99.81 Dependence on supplemental oxygen; Z91.158 Patient's noncompliance with renal dialysis for other reason; Z79.4 Long term (current) use of insulin
CPT/HCPCS: 93005; 85025 ×4; 80048 ×4; 36415 ×2; 82947 ×7; 83880; 87340; 86706; 71045; 90935 ×2; 96375; 96374; 99285; J1815 ×2; J2001; J0610; J7613; J2270; G0378 ×4

== ENCOUNTER 2022-11-15 13:41 | Emergency (ER) | payer OTHER, BC ==
--- OUTSIDE RECORDS SUMMARY | 2022-11-15 14:12 | XMS REPORT | Continuity of Care Document ---
:1945 Author Organization [facility] [place] t Address [address] [facility]. [address] [place] [address] Care Team Providers Name Role Phone LA FORTUNE Primary Care Physician Unavailable La Fortune Attending Clinician Unavailable [id number] Attending Clinician Unavailable RONNIE AYALA Attending Clinician [...] Unavailable CHILANGO ARMSTRONG NATASHA Attending Clinician Unavailable [id number] Admitting Clinician Unavailable RONNIE AYALA Admitting Clinician Unavailable MINE MOSQUEDA Admitting Clinician Unavailable Mine Mosqueda DO Admitting Clinician ZACHARY BRUNO Admitting Clinician Unavailable Zachary Bruno Admitting Clinician Monse Velazquez Admitting Clinician MONSE VELAZQUEZ Admitting Clinician Unavailable CHILANGO ARMSTRONG NATASHA Admitting Clinician Unavailable Payers Payer Name Policy Type Policy Effective Date Expiration Date Sour ce Number MEDICARE PART A [id number] 2011 AND B 00:00:00 MEDICARE PART A [id number] 2010 \\T\\ B 00:00:00 BCBS TRADITIONAL [id number] 2014 00:00:00 Blue [employer] Blue 6 [id number] 2014 [facility] 00:00:00 - [facility] [id number] BCTX BCTI [id number] MEDICARE NOVITAS [id number] 2011 [facility] 00:00:00 - [facility] MEDICARE NOVITAS [id number] 2011 [facility] 00:00:00 - [facility] MEDICARE NOVITAS [id number] 2011 [facility] 00:00:00 [facility] Problems Condition Condition Condition Status Onset Resolution Last Treating Co mments Source Name Details Category Date Date Treatment Clinician Date E46 E46 Disease Active Univers Unspecifie Unspecifie 5-16 it y of d severe d severe 00:00: [place] protein-ca protein-ca 00 Me dical ajay ajay Branch malnutriti malnutriti on on Elevated Elevated Disease Active Unive rs troponin I troponin I 5-14 it y of level level 00:00: [place] 00 Medical Branch Elevated Elevated Disease Active [...] 5-14 it y of on on 00:00: [place] [facility] Syncope Syncope Disease Active Univers 5-14 ity of 00:00: [place] [address] Medical Branch Anemia Anemia Disease Active Univers associated associated 5-14 it y of with with 00:00: [place] nutritiona nutritiona 00 Me dical l Branch deficiency deficiency Dyslipidem Dyslipidem Disease Active U nivers ia ia 5-14 ity of 00:00: [place] [facility] Bifascicul Bifascicul Disease Active U nivers ar block ar block 5-14 ity of 00:00: [place] [facility] Atrial Atrial Disease Active Univers flutter flutter 5-14 ity of 00:00: [place] [facility] Encephalop Encephalop Disease Active U nivers athy athy 5-14 ity of 00:00: [place] [facility] Hypoglycem Hypoglycem Disease Active U nivers ia ia 5-13 ity of 00:00: [place] [facility] LOW LOW Diagnosis Active 2022-01-02 [...] BREATHING Y 12-14 17:56:00 l BREATHING 00:00: [place] Active 00 12/14/2021 [facility] [place] ABNORNAL ABNORNAL Diagnosis Active 2021-12-16 [facility] LAB LAB Active 12-03 05:50:00 l 12/03/2021 08:00: Thomas moyer [facility] 00 [place] ANEMIA, ANEMIA, Diagnosis Active 2021-12-16 Memoria COVID-19 COVID-19 11-24 05:50:00 l Active 00:00: [place] 11/24/2021 [facility] [place] LOW LOW Diagnosis Active 2021-11-24 Mem oria HEMOGOBLIN HEMOGOBLIN 11-24 23:20:00 l Active 00:00: [place] 11/24/2021 00 [facility] Cellulitis Cellulitis Disease Active U nivers of right of right 12-29 ity of leg leg 00:00: [address] [id number] Other Problem Common obesity Spirit due to - [facility] excess 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 - [facility] Chronic Chronic Problem Common systolic systolic Spirit heart congestive - CHI failure heart [facility] [id number] 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 - [facility] [id number] GERD Problem Common without Spirit esophagiti - [facility] s [facility] [id number] Type 2 Problem Common diabetes Spirit mellitus - CHI with [facility] [id number] Mixed Problem Common hyperlipid Spirit emia - [facility] [id number] Noncomplia Problem Co mmon nce of Spirit patient - CHI with [facility] Chronic +5th digit Problem Comm on atrial eff Spirit fibrillati 02/28/19*Ch - [facility]I on ronic St (disorder[facility] [id number] 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 Chronic Chronic Problem Common obstructiv obstructiv Sp jerome e lung e - [facility] disease [facility] Medica l d COPD Center type [id number] Heart Problem Common failure, Spirit congestive - CHI , etiology [facility] [id number] Constipati Problem Com mon on, Spirit unspecifie - CHI d constipati [facility] [place] [id number] Memory Problem Common impairment Spirit of gradual - CHI onset [facility] [id number] HTN, goal Problem Comm on below Spirit 130/80 - CHI [facility] [id number] Anemia of Problem Com mon chronic Spirit disease - CHI [facility] [id number] [employer]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 [facility] [id number] Benign Problem Common prostatic Spirit hyperplasi - CHI a without [facility] urinary Medical tract Center symptoms Hypertroph Obstructiv Problem C ommon ic e Spirit 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 [facility] Hypertensi Hypertensi Problem C ommon ve heart ve chronic Spir it AND kidney - CHI chronic disease St kidney with stage [facility] disease 5 chronic Medica l stage 5 [...] gabapent Active Unknown Commo n in in [facility] codeine codeine Active Unknown Common [facility] codeine codeine Active Memoria l [place] gabapent gabapent Active Memori a in in l [place] Social History Social Habit Start Date Stop Date Quantity Comments Source History of tobacco Cigarette Smoker University of use [place] [facility] History SDOH University o f Alcohol Std Drinks [place] [facility] History SDOH University o f Alcohol Binge [place] Medic al Branch History SDOH Social Unive rsity of Connections [facility] Med ical Together Branch History SDOH Social Unive rsity of Connections [facility] Medical Branch History SDOH Social Unive rsity of Connections [place] Medical Membership Branch History SDOH Social Unive rsity of Connections [place] Medical Meetings Branch Alcohol intake 2022-10-31 2022-10-31 Ex-drinker University of 00:00:00 00:00:00 (finding) [place] [facility] History SDOH 2022-10-12 2022-10-12 1 University o f Alcohol Frequency 00:00:00 00:00:00 [facility] edical Branch History SDOH Social 2022-10-12 2022-10-12 5 Unive rsity of Connections Phone 00:00:00 00:00:00 [facility] edical Branch History SDOH Social 2022-10-12 2022-10-12 [...] 1 Univers ity of Worry 00:00:00 00:00:00 [place] [facility] History SDOH Food 2022-10-12 2022-10-12 1 Univers ity of Scarcity 00:00:00 00:00:00 [place] [facility] History SDOH 2022-10-12 2022-10-12 2 University o f Transport Med 00:00:00 00:00:00 [place] Medic al Branch History SDOH 2022-10-12 2022-10-12 2 University o f Transport Non-Med 00:00:00 00:00:00 [place] M edical Branch History SDOH 2022-10-12 2022-10-12 2 University o f Housing Unable to 00:00:00 00:00:00 [place] M edical Pay Branch History SDMA 2022-10-12 2022-10-12 1 University o f Housing Places 00:00:00 00:00:00 [place] Medi yahaira Lived Branch History SDMA 2022-10-12 2022-10-12 2 University o f Housing [...] sure University of SARS-CoV-2 (event) 00:00:00 13:56:00 [facility] Sex Assigned At [birth year] Universit y of 00:00:00 00:00:00 [facility] Smoking Status Start Date Stop Date Source Social History 2021-12-04 02:37:37 2021-12-04 02:37:37 [facility] Medications Ordered Filled Start Stop Current Ordering Indication Dosage Frequency Signature Comments Components Source Medication Medication Date Date Medication? Clinician (SIG) Name Name aspirin 81 Yes [id number] 81mg Take 1 Univers mg EC 5-19 tablet by ity of tablet 00:00: mouth in [place] 00 the Medical morning. Branch aspirin 81 Yes [id number] 81mg Take 1 Univers mg EC 5-19 tablet by ity of tablet 00:00: mouth in [place] 00 the Medical morning. Branch aspirin 81 0 Yes [id number] 81mg Take 1 Univers mg EC 5-19 tablet by ity of tablet 00:00: mouth in [place] 00 the Medical morning. Branch citalopram Yes 20mg Take 1 Unive rs 20 mg 5-18 tablet by ity of tablet 14:40: mouth in [place] [address] the Medical morning. Branch atorvastati Yes 40mg Take 40 mg Univers n (LIPITOR) 5-18 by mouth ity of 40 mg 14:40: at [place] [address] bedtime. Medical Branch MULTIVITAMI Yes 1{tbl} Take 1 Tab Univers NS WITH 5-18 by mouth ity of EXTRA C 14:40: daily. [place] [address] Medical Branch citalopram Yes 20mg Take 1 Unive rs 20 mg 5-18 tablet by ity of tablet 14:40: mouth in [place] [address] the Medical morning. Branch atorvastati Yes 40mg Take 40 mg Univers n (LIPITOR) 5-18 by mouth ity of 40 mg 14:40: at [place] [address] bedtime. Medical Branch MULTIVITAMI Yes 1{tbl} Take 1 Tab Univers NS WITH 5-18 by mouth ity of EXTRA C 14:40: daily. [place] [address] Medical Branch citalopram Yes 20mg Take 1 [...] ity of M.REC.ANLOG 12:58: 00:00 under the [place] (LANTUS 33 :00 skin every Medica l SOLOSTAR morning. Branch OK) carvediloL Yes [id number] 6.25mg Take 1 Univers 6.25 mg 5-18 tablet by ity of tablet 00:00: mouth in [place] 00 the Medical morning Branch and 1 tablet in the evening. Take with meals. pantoprazol Yes [id number] 40mg Take 1 Univers e 40 mg EC 5-18 tablet by ity of tablet 00:00: mouth in [place] 00 the Medical morning. Branch carvediloL Yes [id number] 6.25mg Take 1 Univers 6.25 mg 5-18 tablet by ity of tablet 00:00: mouth in [place] the morning Branch and 1 tablet in the evening. Take with meals. pantoprazol Yes [id number] 40mg Take 1 Univers e 40 mg EC 5-18 tablet by ity of tablet 00:00: mouth in [place] the morning. Branch carvediloL Yes [id number] 6.25mg Take 1 Univers 6.25 mg 5-18 tablet by ity of tablet 00:00: mouth in [place] the morning Branch and 1 tablet in the evening. Take with meals. pantoprazol Yes [id number] 40mg Take 1 Univers e 40 mg EC 5-18 tablet by ity of tablet 00:00: mouth in [place] the morning. Branch amoxicillin 2022- Yes [id number] 500mg Take 1 Univers -pot 5-18 05-26 tablet by ity of clavulanate 00:00: 04:59 [place] 500 mg 00 :00 every 24 Medical (AUGMENTIN) (twenty-fo Br anch 500-125 mg ur) hours tablet for 7 days. amoxicillin 2022- Yes [id number] 500mg Take 1 Univers -pot 5-18 05-26 tablet by ity of clavulanate 00:00: 04:59 [place] 500 mg 00 :00 every 24 Medical (AUGMENTIN) (twenty-fo Br anch 500-125 mg ur) hours tablet for 7 days. FENTanyl PF 0 Yes 25ug 25 mcg, Uni vers (SUBLIMAZE 5-17 Slow IV ity of (PF)) 11:05: Push, [place] injection 22 Q6HPRN, Medical 25 mcg Starting Branch on Wed10/14/22 at 0605, Until Discontinu ed, Routine, Pain (scale 4-6) FENTanyl PF 2022- No 12.5ug 12.5 mcg, Univers (SUBLIMAZE 5-17 05-17 Slow IV ity o f (PF)) 08:07: 11:05 [place], [place] injection 00 :38 Q6HPRN, Medical 12.5 mcg [...] Medic al VIAL-MATE dose, On Branch IV [facility] piggyback 10/12/22 at 1600, Administer over 90 Minutes, 250 mL
Reas on for Anti-Infec tive: Documented Infection< br>Documen swathi Infection Site: Blood<br&g t;Duration of Therapy: 7 days methocarbam 2022-0 Yes 750mg 750 mg, Un arnie oL 5-15 Oral, ity of (ROBAXIN) 13:06: TIDPRN, [place] tablet 750 58 Starting Medic al mg on [facility] 10/12/22 at 0806, Until Discontinu ed, Routine, Muscle Spasms atorvastati 0 Yes 40mg 40 mg, Univ ers n (LIPITOR) 5-15 Oral, QHS, it y of tablet 40 02:00: First [place] mg [facility] on [facility] 10/11/22 at Branch 2100, Until Discontinu ed, Routine docusate 0 Yes 100mg 100 mg, Unive rs (COLACE) 5-15 Oral, BID, ity o f capsule 100 01:30: First dose [place] mg 00 on [facility] 10/11/22 at Branch 2030, Until Discontinu ed, Routine aspirin EC 0 Yes 81mg 81 mg, Unive rs tablet 81 5-14 Oral, ity of mg 14:00: DAILY, [place] 00 First dose Medical on [facility] 10/11/22 at 0900, Until Discontinu ed, Routine pantoprazol 0 Yes 40mg 40 mg, Univ ers e 5-14 Oral, ity of (PROTONIX) 14:00: DAILY, [place] EC tablet 00 First dose Medi yahaira 40 mg on [facility] 10/11/22 at 0900, Until Discontinu ed, Routine citalopram 0 Yes 20mg 20 mg, Unive rs (CELEXA) 5-14 Oral, ity of tablet 20 14:00: DAILY, [place] mg 00 First dose Medical on [facility] 10/11/22 at 0900, Until Discontinu ed, [...] (Same as: l oral 14:00: Adalat CC, [place] tablet, 00 Procardia extended XL) Give release on empty stomach. Take 1 hour before or 2 hours after meal; "Avoid grapefruit and grapefruit juice". Do not crush Epogen No Notes: Memoria (ESRD) 7-20 Same as: l 14:00: Retacrit) [place] 00 epoetin shannon-epbx 64872 unit/1 ml VL. For dialysis use only. WASTE: F/P - Red; E Red MEDICATION WASTE Product Size: 36044 unit Product Wasted: ___ unit aspirin No Notes: Do Memor ia 7-20 not crush l 14:00: or chew. [place] 00 (Same As: Ecotrin) Procardia No Notes: Memori a XL 30 mg 7-20 (Same as: l oral 14:00: Adalat CC, [place] tablet, 00 Procardia extended XL) Give release on empty stomach. Take 1 hour before or 2 hours after meal; "Avoid grapefruit and grapefruit juice". Do not crush Epogen No Notes: Memoria (ESRD) 7-20 Same as: l 14:00: Retacrit) [place] 00 epoetin shannon-epbx 04014 unit/1 ml VL. For dialysis use only. WASTE: F/P - Red; E Red MEDICATION WASTE Product Size: 05782 unit Product Wasted: ___ unit aspirin No Notes: Do Memor ia 7-20 not crush l 14:00: or chew. [place] 00 (Same As: Ecotrin) Procardia No Notes: Memori a XL 30 mg 7-20 (Same as: l oral 14:00: Adalat CC, [place] tablet, 00 Procardia extended XL) Give release on empty stomach. Take 1 hour before or 2 hours after meal; "Avoid grapefruit and grapefruit juice". Do not crush Epogen No Notes: Memoria (ESRD) 7-20 Same as: l 14:00: Retacrit) [place] 00 epoetin shannon-epbx 08460 unit/1 ml VL. For dialysis use only. WASTE: F/P - Red; E Red MEDICATION WASTE Product Size: 81220 unit Product Wasted: ___ unit aspirin No Notes: Do Memor ia 7-20 not crush l 14:00: or chew. [place] 00 (Same As: Ecotrin) Procardia No Notes: Memori a XL 30 mg 7-20 (Same as: l oral 14:00: Adalat CC, [place] tablet, 00 Procardia extended XL) Give release on empty stomach. Take 1 hour before or 2 hours after meal; "Avoid grapefruit and grapefruit juice". Do not crush Epogen No Notes: Memoria (ESRD) 7-20 Same as: l 14:00: Retacrit) [place] 00 epoetin shannon-epbx 75951 unit/1 ml VL. For dialysis use only. WASTE: F/P - Red; E Red MEDICATION WASTE Product Size: 46401 unit Product Wasted: ___ unit aspirin No Notes: Do Memor ia 7-20 not crush l 14:00: or chew. [place] 00 (Same As: Ecotrin) Procardia No Notes: Memori a XL 30 mg 7-20 (Same as: l oral 14:00: Adalat CC, [place] tablet, 00 Procardia extended XL) Give release on empty stomach. Take 1 hour before or 2 hours after meal; "Avoid grapefruit and grapefruit juice". Do not crush Epogen No Notes: Memoria (ESRD) 7-20 Same as: l 14:00: Retacrit) [place] epoetin shannon-epbx 46738 unit/1 ml VL. For dialysis use only. WASTE: F/P - Red; E Red MEDICATION WASTE Product Size: 47263 unit Product Wasted: ___ unit aspirin No Notes: Do Memor ia 7-20 not crush l 14:00: or chew. [place] (Same As: Ecotrin) Procardia No Notes: Memori a XL 30 mg 7-20 (Same as: l oral 14:00: Adalat CC, [place] tablet, 00 Procardia extended XL) Give release on empty stomach. Take 1 hour before or 2 hours after meal; "Avoid grapefruit and grapefruit juice". Do not crush Epogen No Notes: Memoria (ESRD) 7-20 Same as: l 14:00: Retacrit) [place] 00 epoetin shannon-epbx 06959 unit/1 ml VL. For dialysis use only. WASTE: F/P - Red; E Red MEDICATION WASTE Product Size: 74519 unit Product Wasted: ___ unit Lipitor No Notes: Memoria 7-20 (Same as: l 02:00: Lipitor) [place] Lipitor No Notes: Memoria 7-20 (Same as: l 02:00: Lipitor) [place] 00 Lipitor No Notes: Memoria 7-20 (Same as: l 02:00: Lipitor) [place] 00 Lipitor No Notes: Memoria 7-20 (Same as: l 02:00: Lipitor) [place] 00 Lipitor No Notes: Memoria 7-20 (Same [...] l capsule 22:00: Omnicef) Thomas n dexamethaso Yes 6 mg = 1 Me moria ne 6 mg 7-19 tab, PO, l oral tablet 21:19: Daily, X 3 [place] 00 day, # 3 tab, 0 Refill(s), Pharmacy: [facility] cy #[id number], 177.8, cm, 12/14/21 22:03:00 CDT, Height, 95.2, kg, 12/14/21 22:03:00 CDT, Weight dexamethaso Yes 6 mg = 1 Me [place]ia ne 6 mg 7-19 tab, PO, l oral tablet 21:19: Daily, X 3 [place] 00 day, # 3 tab, 0 Refill(s), Pharmacy: [facility] cy #[id number], 177.8, cm, 12/14/21 22:03:00 CDT, Height, 95.2, kg, 12/14/21 22:03:00 CDT, Weight dexamethaso 2022-0 Yes 6 mg = 1 Me moria ne 6 mg 7-19 tab, PO, l oral tablet 21:19: Daily, X 3 [place] day, # 3 tab, 0 Refill(s), Pharmacy: [facility] cy #[id number], 177.8, cm, 12/14/21 22:03:00 CDT, Height, 95.2, kg, 12/14/21 22:03:00 CDT, Weight dexamethaso 2022-0 Yes 6 mg = 1 Me moria ne 6 mg 7-19 tab, PO, l oral tablet 21:19: Daily, X 3 [place] day, # 3 tab, 0 Refill(s), Pharmacy: [facility] cy #[id number], 177.8, cm, 12/14/21 22:03:00 CDT, Height, 95.2, kg, 12/14/21 22:03:00 CDT, Weight dexamethaso 2022-0 Yes 6 mg = 1 Me moria ne 6 mg 7-19 tab, PO, l oral tablet 21:19: Daily, X 3 [place] day, # 3 tab, 0 Refill(s), Pharmacy: [facility] cy #[id number], 177.8, cm, 12/14/21 22:03:00 CDT, Height, 95.2, kg, 12/14/21 22:03:00 CDT, Weight dexamethaso 2022-0 Yes 6 mg = 1 Me moria ne 6 mg 7-19 tab, PO, l oral tablet 21:19: Daily, X 3 [place] day, # 3 tab, 0 Refill(s), Pharmacy: [facility] cy #[id number], 177.8, cm, 12/14/21 22:03:00 CDT, Height, 95.2, kg, 12/14/21 22:03:00 CDT, Weight guaiFENesin 2022-0 No 600 mg = 1 Memoria 600 mg oral 7-19 tab, PO, l tablet, 20:31: Q12H, # 20 Herm silas extended 00 tab, 0 release Refill(s) guaiFENesin 2022-0 No 600 mg = 1 Memoria 600 mg oral 7-19 tab, PO, l tablet, 20:31: Q12H, # 20 [place] silas extended 00 tab, 0 release Refill(s) guaiFENesin 2022-0 No 600 mg = 1 Memoria 600 mg oral 7-19 tab, PO, l tablet, 20:31: Q12H, # 20 Herm silas extended 00 tab, 0 release Refill(s) guaiFENesin 2022-0 No 600 mg = 1 Memoria 600 mg oral 7-19 tab, PO, l tablet, 20:31: Q12H, # 20 Herm silas extended 00 tab, 0 release Refill(s) guaiFENesin 2022-0 No 600 mg = 1 Memoria 600 mg oral 7-19 tab, PO, l tablet, 20:31: Q12H, # 20 Herm silas extended 00 tab, 0 release Refill(s) guaiFENesin 2022-0 No 600 mg = 1 Memoria 600 [...] 7-19 tab, PO, l tablet 20:29: Bedtime, [place] 00 PRN for insomnia, # 14 tab, 0 Refill(s) melatonin Yes 3 mg = 1 Me [place]ia mg oral 7-19 tab, PO, l tablet 20:29: Bedtime, [place] 00 PRN for insomnia, # 14 tab, [...] # 20 cap, 0 Refill(s) Colace 100 2022-0 Yes 100 mg = 1 M emoria [...] l oral tablet 20:27: Q12H, # 60 [place] 00 tab, 0 Refill(s) bisacodyl 5 Yes 10 mg = 2 M emoria mg oral 7-19 tab, PO, l enteric 20:27: Daily, PRN Herm silas coated 00 Constipati tablet on, # 20 tab, 0 Refill(s) carvedilol Yes 12.5 mg = Me moria 12.5 mg 7-19 1 tab, PO, l oral tablet 20:27: Q12H, # 60 [place] 00 tab, 0 Refill(s) bisacodyl 5 Yes 10 mg = 2 M emoria mg oral 7-19 tab, PO, l enteric 20:27: Daily, PRN Herm silas coated 00 Constipati tablet on, # 20 tab, 0 Refill(s) carvedilol Yes 12.5 mg = Me moria 12.5 mg 7-19 1 tab, PO, l oral tablet 20:27: Q12H, # 60 [place] 00 tab, 0 Refill(s) bisacodyl 5 Yes 10 mg = 2 M emoria mg oral 7-19 tab, PO, l enteric 20:27: Daily, PRN Herm silas coated 00 Constipati tablet on, # 20 tab, 0 Refill(s) carvedilol Yes 12.5 mg = Me moria 12.5 mg 7-19 1 tab, PO, l oral tablet 20:27: Q12H, # 60 [place] 00 tab, 0 Refill(s) bisacodyl 5 Yes [...] l oral tablet 20:27: Q12H, # 60 [place] 00 tab, 0 Refill(s) aspirin 81 2021-0 [...] 00 90 tab, 3 Refill(s) aspirin 81 2022-0 Yes 81 mg = 1 Me moria [...] As: Zithromax) sevelamer No Notes: Memori a 7-19 Same as: l 13:00: Renvela [place] sevelamer No Notes: Memori a 7-19 Same as: l 13:00: Renvela [place] sevelamer No Notes: Memori a 7-19 Same as: l 13:00: Renvela [place] sevelamer No Notes: Memori a 7-19 Same as: l 13:00: Renvela [place] sevelamer No Notes: 12-16 Same as: l 13:00: Renvela [place] sevelamer No Notes: 12-16 Same as: l 13:00: Renvela [place] albumin Yes Notes: Lot Heath mercado 25% 12-16 #: l intravenous 02:33: [place] solution ___ Mfg: (Same as: Plasbumin- 25) "blood product derivative " WASTE: F/P - Red; E -Red MEDICATION WASTE Product Size: 25 gm Product Wasted: ___ gm albumin Yes Notes: Na mercado 25% 12-16 #: l intravenous 02:33: [place] solution ___ Mfg: (Same as: Plasbumin- 25) "blood product derivative " WASTE: F/P - Red; E -Red MEDICATION WASTE Product Size: 25 gm Product Wasted: ___ gm albumin Yes Notes: Na mercado 25% 12-16 #: l intravenous 02:33: [place] solution ___ Mfg: (Same as: Plasbumin- 25) "blood product derivative " WASTE: F/P - Red; E -Red MEDICATION WASTE Product Size: 25 gm Product Wasted: ___ gm albumin Yes Notes: Lot Heath mercado 25% 12-16 #: l intravenous 02:33: [place] solution ___ Mfg: (Same as: Plasbumin- 25) "blood product derivative " WASTE: F/P - Red; E -Red MEDICATION WASTE Product Size: 25 gm Product Wasted: ___ gm albumin Yes Notes: Lot Heath bobo human 25% 7-19 #: l intravenous 02:33: [place] solution 00 ___ Mfg: (Same as: Plasbumin- 25) "blood product derivative " WASTE: F/P - Red; E -Red MEDICATION WASTE Product Size: 25 gm Product Wasted: ___ gm albumin Yes Notes: Lot Heath broussard human 25% 7-19 #: l intravenous 02:33: [place] solution 00 ___ Mfg: (Same as: Plasbumin- [...] pratropium 7-18 Same as: l 13:00: Combivent [place] Respimat WASTE: Aerosol - Return to Pharmacy albuterol-i No Notes: Heath bobo pratropium 7-18 Same as: l 13:00: Combivent [place] Respimat WASTE: Aerosol - Return to Pharmacy albuterol-i No Notes: Heath bobo pratropium 7-18 Same as: l 13:00: Combivent [place] 00 Respimat WASTE: Aerosol - Return to Pharmacy albuterol-i No Notes: Heath bobo pratropium 7-18 Same as: l 13:00: Combivent [place] Respimat WASTE: Aerosol - Return to Pharmacy albuterol-i No Notes: Heath bobo pratropium 7-18 Same as: l 13:00: Combivent [place] Respimat WASTE: Aerosol - Return to Pharmacy albuterol-i No Notes: Heath bobo pratropium 7-18 Same as: l 13:00: Combivent [place] Respimat WASTE: Aerosol - Return to Pharmacy heparin No 5,000 Memoria 7-18 unit, l 05:00: Route: [place] 00 SUB-Q, Q8H, Dosing Weight 95.455, kg, Start date: 12/15/21 0:00:00 CDT, Stop date: 01/13/22 16:00:00 CDT heparin 2022-0 No 5,000 Memoria 7-18 unit, l 05:00: Route: [place] 00 SUB-Q, Q8H, Dosing Weight 95.455, kg, Start date: 12/15/21 0:00:00 CDT, Stop date: 01/13/22 16:00:00 CDT heparin 2022-0 No 5,000 [facility] 7-18 unit, l 05:00: Route: [place] 00 SUB-Q, Q8H, Dosing Weight 95.455, kg, [...] 5,000 [facility] 7-18 unit, l 05:00: Route: [place] 00 SUB-Q, Q8H, Dosing Weight 95.455, kg, Start date: 12/15/21 0:00:00 CDT, Stop date: 01/13/22 16:00:00 CDT heparin 2022-0 No Notes: [facility] 7-18 porcine l 02:00: heparin [place] 00 heparin 2022-0 No Notes: [facility] 7-18 porcine l 02:00: heparin [place] 00 heparin 2022-0 No Notes: [facility] 7-18 porcine l 02:00: heparin [place] 00 heparin 2022-0 No Notes: [facility] 7-18 porcine l 02:00: heparin [place] 00 heparin 2022-0 No Notes: [facility] 7-18 porcine l 02:00: heparin [place] heparin No Notes: [facility] 7-18 porcine l 02:00: heparin [place] 00 albuterol-i No Notes: Heath bobo pratropium [...] Rate: 999 l Water IV 23:57: ml/hr, [place] Infuse over: 0.1 hr, Route: IV, Total Volume: 125, Start date: 07/17/22 18:57:00 CDT, Duration: 30 day, Stop date: [...] Rate: 999 l Water IV 23:57: ml/hr, [place] 00 Infuse over: 0.1 hr, Route: IV, Total Volume: 125, Start date: 12/14/21 18:57:00 CDT, Duration: 30 day, Stop date: 01/13/22 18:56:00 CDT, PRN Blood Glucose Results, 0 Dextrose 2022-0 No 125 mL, Memori a 10% in 12-14 Rate: 999 l Water IV 23:57: ml/hr, [place] 00 Infuse over: 0.1 hr, Route: IV, Total Volume: 125, Start date: 12/14/21 18:57:00 CDT, Duration: 30 day, Stop date: 01/13/22 18:56:00 CDT, PRN Blood Glucose Results, 0 Dextrose 2022-0 No 125 mL, Memori a 10% in 12-14 Rate: 999 l Water IV 23:57: ml/hr, [place] 00 Infuse over: 0.1 hr, Route: IV, Total Volume: 125, Start date: 12/14/21 18:57:00 CDT, Duration: 30 day, Stop date: 01/13/22 18:56:00 CDT, PRN Blood Glucose Results, 0 Dextrose 2022-0 No 250 mL, Memori a 10% in 12-14 Rate: 999 l Water IV 23:53: ml/hr, [place] 00 Infuse over: 0.3 hr, Route: IV, [...] Rate: 999 l Water IV 23:53: ml/hr, [place] 00 Infuse over: 0.3 hr, Route: IV, [...] Pharmacy 12-14 Vancomycin l Dosing 23:36: Pharmacy [place] Consult 47 Dosing Protocol PHARMAC Y USE [...] Pharmacy 12-14 Vancomycin l Dosing 23:36: Pharmacy [place] Consult 47 Dosing Protocol PHARMAC Y USE [...] bobo 12-14 (Same as: l 23:30: Mylicon) [place] 00 ondansetron No Notes: Heath bobo 12-14 [...] 1.4% 7-17 Chlorasept l spray 23:30: ic [place] (Same as: Chlorasept ic, Sore Throat [place]) WASTE: F/P - Black; E - Municipal [...] 7-17 (Same as: l tablet 23:30: Pepcid) [place] 5/325 No Notes: Heath bobo oral tablet 7-17 (Same as: l 23:30: [place] 325/5) Do not exceed 4gm/day of acetaminop [...] 1.4% 7-17 Chlorasept l spray 23:30: ic [place] (Same as: Chlorasept ic, Sore Throat [place]) WASTE: F/P - Black; E - Municipal [...] 7-17 (Same as: l tablet 23:30: Pepcid) [place] 5/325 No Notes: Heath bobo oral tablet 7-17 (Same as: l 23:30: [place] 00 325/5) Do not exceed 4gm/day of [...] 1.4% 7-17 Chlorasept l spray 23:30: ic [place] (Same as: Chlorasept ic, Sore Throat [place]) WASTE: F/P - Black; E - Municipal [...] 7-17 (Same as: l tablet 23:30: Pepcid) [place] 5/325 No Notes: Heath bobo oral tablet 7-17 (Same as: l 23:30: [place] 325/5) Do not exceed 4gm/day of acetaminop [...] 1.4% 7-17 Chlorasept l spray 23:30: ic [place] (Same as: Chlorasept ic, Sore Throat [place]) WASTE: F/P - Black; E - Municipal [...] 1.4% 7-17 Chlorasept l spray 23:30: ic [place] (Same as: Chlorasept ic, Sore Throat [place]) WASTE: F/P - Black; E - Municipal Trash Bin Col[place] 100 No Notes: [facility] mg oral 7-17 (Same as: l capsule 23:30: Colace) (Do Not Crush) hydrALAZINE No Notes: Hetah bobo 7-17 (Same as: l 23:30: Apresoline ) Push over 5 minutes melatonin 3 No Notes: Heath bobo mg oral 7-17 (Same as: l tablet 23:30: Melatonin) [place] Pepcid 20 No Notes: Memori a mg oral 7-17 (Same as: l tablet 23:30: Pepcid) [place] 5/325 No Notes: Heath bobo oral tablet 7-17 (Same as: l 23:30: [place] 00 325/5) Do not exceed 4gm/day of acetaminop hen. morphine No 1 mg, 0.5 Heath bobo Sulfate 7-17 mL, Route: l 23:30: IVP, Drug form: SOLN, Q4H, Dosing Weight 95.455, kg, PRN Pain Score 7-10, Start date: 12/14/21 18:30:00 CDT, Duration: 30 day, Stop date: 01/13/22 18:29:00 CDT, 0 [place] 5/325 No Notes: Heath bobo oral tablet 7-17 (Same as: l 23:30: [place] 00 325/5) Do not exceed 4gm/day of [...] 1.4% 7-17 Chlorasept l spray 23:30: ic [place] (Same as: Chlorasept ic, Sore Throat [place]) WASTE: F/P - Black; E - Municipal [...] 7-17 (Same as: l tablet 23:30: Pepcid) [place] 5/325 No Notes: Heath bobo oral tablet 7-17 (Same as: l 23:30: [place] 00 325/5) Do not exceed 4gm/day [...] Route: IM, l 23:29: Drug form: [place] PDR/INJ, PRN, Dosing Weight 95.455, kg, PRN Blood Glucose Results, Start date: 12/14/21 18:29:00 CDT, Duration: 30 day, Stop date: 01/13/22 18:28:00 CDT, 0 insulin 2022-0 No Notes: [facility] lispro 7-17 (Same as: l 23:29: Humalog) [place] 00 Roll in palms of hands gently; Do not shake vigorously . WASTE: F/P - Black; E - Municipal Trash Bin Stable for 28 days at room temperatur e. Expires in days from ____Date Dextrose 2021-0 No 25 mL, [facility] 50% Syringe 12-14 Route: l (D50W) 23:29: IVP, Dosing Weight 95.455, kg, PRN, PRN Blood Glucose Results, Start date: 12/14/21 18:29:00 CDT, Duration: 30 day, Stop date: 01/13/22 18:28:00 CDT glucagon 2-0 No 1 mg, [facility] 7-17 Route: IM, l 23:29: Drug form: [place] 00 PDR/INJ, PRN, Dosing Weight 95.455, kg, [...] Syringe 7-17 Route: l (D50W) 23:29: IVP, [place] 00 Dosing Weight 95.455, kg, PRN, PRN Blood Glucose Results, Start date: 12/14/21 18:29:00 CDT, Duration: 30 day, Stop date: 01/13/22 18:28:00 CDT glucagon 2022-0 No 1 mg, [facility] 7-17 Route: IM, l 23:29: Drug form: [place] 00 PDR/INJ, PRN, Dosing Weight 95.455, kg, [...] 7-17 Route: IM, l 23:29: Drug form: [place] 00 PDR/INJ, PRN, Dosing Weight 95.455, kg, PRN Blood Glucose Results, Start date: 12/14/21 18:29:00 CDT, Duration: 30 day, Stop date: 01/13/22 18:28:00 CDT, 0 insulin 2022-0 No Notes: [facility] lispro 7-17 (Same as: l 23:29: Humalog) [place] 00 Roll in palms of hands gently; Do not shake vigorously . WASTE: F/P - Black; E - Municipal Trash Bin Stable for 28 days at room temperatur e. Expires in days from ____Date Dextrose No 25 mL, [facility] 50% Syringe 7- Route: l (D50W) 23:29: IVP, [place] 00 Dosing Weight 95.455, kg, PRN, PRN Blood Glucose Results, Start date: 12/14/21 18:29:00 CDT, Duration: 30 day, Stop date: 01/13/22 18:28:00 CDT glucagon No 1 mg, [facility] 7- Route: IM, l 23:29: Drug form: PDR/INJ, [...] [facility] sulfate 7-17 (Zinc l 23:28: sulfate [place] 00 capsule) - 220 mg Zinc sulfate = 50 mg elemental zinc Same as Zinc Sulfate ascorbic No Notes: [facility] acid 7-17 (Same as: l 23:28: Vitamin C) No Notes: [facility] Perles 7-17 (Same As: l 23:28: Tessalon Perles) "Do Not Crush" zinc No Notes: [facility] sulfate 7-17 (Zinc l 23:28: sulfate [place] 00 capsule) - 220 mg Zinc sulfate = 50 mg elemental zinc Same as Zinc Sulfate ascorbic No Notes: [facility] acid 7-17 (Same as: l 23:28: Vitamin C) No Notes: [facility] Perles 7-17 (Same As: l 23:28: Tessalon Perles) "Do Not Crush" zinc No Notes: [facility] sulfate 7-17 (Zinc l 23:28: sulfate [place] 00 capsule) - 220 mg Zinc sulfate [...] syringe 2022-0 No 25 mL, Heath bobo 12-14 Route: l 20:41: IVP, [place] 00 Dosing Weight 95.455, kg, ONCE, STAT, Start date: 12/14/21 15:41:00 CDT, Stop date: 12/14/21 15:41:00 CDT, 25 ml = 12.5 gm d50 syringe 2022-0 No 25 mL, Heath bobo 7 Route: l 20:41: IVP, [place] Dosing Weight 95.455, kg, ONCE, STAT, Start date: 12/14/21 15:41:00 CDT, Stop date: 12/14/21 15:41:00 CDT, 25 ml = 12.5 gm d50 syringe 2022-0 No 25 mL, Heath bobo 7-17 Route: l 20:41: IVP, [place] Dosing Weight 95.455, kg, ONCE, STAT, Start date: 12/14/21 15:41:00 CDT, Stop date: 12/14/21 15:41:00 CDT, 25 ml = 12.5 gm d50 syringe 2022-0 No 25 mL, Heath bobo 7-17 Route: l 20:41: IVP, [place] Dosing Weight 95.455, kg, ONCE, STAT, Start date: 12/14/21 15:41:00 CDT, Stop date: 12/14/21 15:41:00 CDT, 25 ml = 12.5 gm d50 syringe 2022-0 No 25 mL, Heath bobo 7-17 Route: l 20:41: IVP, [place] Dosing Weight 95.455, kg, ONCE, STAT, Start date: 12/14/21 15:41:00 CDT, Stop date: 12/14/21 15:41:00 CDT, 25 ml = 12.5 gm d50 syringe 2022-0 No 25 mL, Heath bobo 7-17 Route: l 20:41: IVP, [place] Dosing Weight 95.455, kg, ONCE, STAT, Start [...] Rate: To l 0.9% 01:29: prime line [place] (titrate) 00 and flush 250 mL remaining [...] tab, PO, l tablet 19:37: Daily, # [place] 00 30 tab, 0 Refill(s), other Plavix 75 2022-0 Yes 75 mg = 1 [facility] mg oral 6-28 tab, PO, l tablet 19:37: Daily, # [place] 00 30 tab, 0 Refill(s), other Plavix 75 2022-0 Yes 75 mg = 1 [facility] mg oral 6-28 tab, PO, l tablet 19:37: Daily, # [place] 00 30 tab, 0 Refill(s), other Plavix 75 2022-0 Yes 75 mg = 1 [facility] mg oral 6-28 tab, PO, l tablet 19:37: Daily, # [place] 00 30 tab, 0 Refill(s), other Plavix 75 2022-0 Yes 75 mg = 1 [facility] mg oral 6-28 tab, PO, l tablet 19:37: Daily, # [place] 00 30 tab, 0 Refill(s), other Protonix No Notes: For Mem oria -28 IV push l 14:00: reconstitu [place] 00 te with 10 ml 0.9% sodium [...] ia 6-28 (Same As: l 14:00: CeleXA) [place] Protonix No Notes: For Mem oria 6-28 IV push l 14:00: reconstitu [place] 00 te with 10 ml 0.9% sodium chloride and push over 2 minutes. (Same as: Protonix) atorvastati No Notes: Heath bobo n 6-28 (Same as: l 14:00: Lipitor) [place] 00 citalopram No Notes: Memor ia 6-28 (Same As: l 14:00: CeleXA) [place] 00 Protonix No Notes: For Mem oria 6-28 IV push l 14:00: reconstitu [place] 00 te with 10 ml 0.9% sodium chloride and push over 2 minutes. (Same as: Protonix) atorvastati No Notes: Heath bobo n 6-28 (Same as: l 14:00: Lipitor) [place] 00 citalopram No Notes: Memor ia 6-28 (Same As: l 14:00: CeleXA) [place] 00 Protonix No Notes: For Mem oria 6-28 IV push l 14:00: reconstitu [place] 00 te with 10 ml 0.9% sodium chloride and push over 2 minutes. (Same as: Protonix) atorvastati No Notes: Heath bobo n 6-28 (Same as: l 14:00: Lipitor) [place] 00 citalopram No Notes: Memor ia 6-28 (Same As: l 14:00: CeleXA) [place] Protonix No Notes: For Mem oria 6-28 IV push l 14:00: reconstitu [place] 00 te with 10 ml 0.9% sodium chloride and push over 2 minutes. (Same as: Protonix) atorvastati No Notes: Heath bobo n 6-28 (Same as: l 14:00: Lipitor) [place] 00 citalopram No Notes: Memor ia 6-28 (Same As: l 14:00: CeleXA) [place] dexamethaso 2021-0 No Notes: Heath bobo ne 6-28 Concentrat l 06:42: ion: [place] 00 4mg/ml dexamethaso 2021-0 No Notes: Heath bobo ne 6-28 Concentrat l 06:42: ion: [place] 00 4mg/ml dexamethaso 2021-0 No Notes: Heath bobo ne 6-28 Concentrat l 06:42: ion: [place] 00 4mg/ml dexamethaso 2021-0 No Notes: Heath bobo ne 6-28 Concentrat l 06:42: ion: [place] 00 4mg/ml dexamethaso 2021-0 No Notes: Heath bobo ne 6-28 Concentrat l 06:42: ion: [place] 00 4mg/ml dexamethaso 2021-0 No Notes: Heath bobo ne 6-28 Concentrat l 06:42: ion: [place] 00 4mg/ml D10W 0 No 125 mL, [facility] (bolus) IV - Rate: 999 l 06:31: ml/hr, [place] 00 Infuse over: 0.1 hr, Route: IVPB, Total Volume: 125, Start date: 11/25/21 1:31:00 CDT, Duration: 30 day, Stop date: 12/25/21 1:30:00 CDT, PRN Blood Glucose Results, 0 D10 No 125 mL, [facility] (bolus) IV - Rate: 999 l 06:31: ml/hr, [place] 00 Infuse over: 0.1 hr, Route: IVPB, Total Volume: 125, Start date: 11/25/21 1:31:00 CDT, Duration: 30 day, Stop date: 12/25/21 1:30:00 CDT, PRN Blood Glucose Results, 0 D10 No 125 mL, [facility] (bolus) IV - Rate: 999 l 06:31: ml/hr, [place] Infuse over: 0.1 hr, Route: IVPB, Total Volume: 125, Start date: 11/25/21 1:31:00 CDT, Duration: 30 day, Stop date: 12/25/21 1:30:00 CDT, PRN Blood Glucose Results, 0 D10W 2021-0 No 125 mL, [facility] (bolus) IV 6-28 Rate: 999 l 06:31: ml/hr, [place] 00 Infuse over: 0.1 hr, Route: IVPB, Total Volume: 125, Start date: 11/25/21 1:31:00 CDT, Duration: 30 day, Stop date: 12/25/21 1:30:00 CDT, PRN Blood Glucose Results, 0 D10W 2021-0 No 125 mL, [facility] (bolus) IV 6-28 Rate: 999 l 06:31: ml/hr, [place] 00 Infuse over: 0.1 hr, Route: IVPB, Total Volume: 125, Start date: 11/25/21 1:31:00 CDT, Duration: 30 day, Stop date: 12/25/21 1:30:00 CDT, PRN Blood Glucose Results, 0 D10W 2021-0 No 125 mL, [facility] (bolus) IV 6- Rate: 999 l 06:31: ml/hr, [place] 00 Infuse over: 0.1 hr, Route: IVPB, Total Volume: 125, Start date: 11/25/21 1:31:00 CDT, Duration: 30 day, Stop date: 12/25/21 1:30:00 CDT, PRN Blood Glucose Results, 0 D10W 2021-0 No 250 mL, [facility] (bolus) IV 6- Rate: 999 l 06:23: ml/hr, [place] 00 Infuse over: 0.3 hr, Route: IVPB, Total Volume: 250, Start date: 11/25/21 1:23:00 CDT, Duration: 30 day, Stop date: 12/25/21 1:22:00 CDT, PRN Blood Glucose Results, 0 D10W 2021-0 No 250 mL, [facility] (bolus) IV 6- [...] Route: IM, l 05:55: Drug form: [place] PDR/INJ, PRN, Dosing Weight 94.545, kg, PRN Blood Glucose Results, Start date: 11/25/21 0:55:00 CDT, Duration: 30 day, Stop date: 12/25/21 0:54:00 CDT, 0 insulin 202-0 No Notes: [facility] lispro -28 (Same as: l 05:55: Humalog) Roll in [...] 0 insulin 2021-0 No Notes: [facility] lispro - (Same as: [...] 11-25 Route: IM, l 05:55: Drug form: [place] 00 PDR/INJ, PRN, Dosing Weight 94.545, kg, PRN Blood Glucose Results, Start date: 11/25/21 0:55:00 CDT, Duration: 30 day, Stop date: 12/25/21 0:54:00 CDT, 0 insulin 202-0 No Notes: [facility] lispro - (Same as: l 05:55: Humalog) [place] 00 Roll in palms of hands gently; Do not shake vigorously . WASTE: F/P - Black; E - Municipal Trash Bin Stable for 28 days at room temperatur e. Expires in days from ____Date Dextrose 2021-0 No 25 mL, [facility] 50% Syringe 11-25 Route: l (D50W) 05:55: IVP, [place] Dosing Weight 94.545, kg, PRN, PRN Blood [...] 0 insulin 2021-0 No Notes: [facility] lispro - (Same as: l 05:55: Humalog) [place] 00 [...] lispro 11-25 (Same as: l 05:55: Humalog) [place] 00 Roll in palms of hands gently; Do not shake vigorously . WASTE: F/P - Black; E - Municipal Trash Bin Stable for 28 days at room temperatur e. Expires in days from ____Date Dextrose 2021-0 No 25 mL, [facility] 50% Syringe 11-25 Route: l (D50W) 05:55: IVP, [place] 00 Dosing Weight 94.545, kg, PRN, PRN Blood Glucose Results, Start date: 11/25/21 0:55:00 CDT, Duration: 30 day, Stop date: 12/25/21 0:54:00 CDT glucagon 2021-0 No 1 mg, [facility] 11-25 Route: IM, l 05:55: Drug form: [place] 00 PDR/INJ, PRN, Dosing Weight 94.545, kg, PRN Blood Glucose Results, Start date: 11/25/21 0:55:00 CDT, Duration: 30 day, Stop date: 12/25/21 0:54:00 CDT, 0 insulin 2021-0 No Notes: [facility] lispro 11-25 (Same as: l 05:55: Humalog) [place] 00 Roll in palms of hands gently; Do not shake vigorously . WASTE: F/P - Black; E - Municipal Trash Bin Stable for 28 days at room temperatur e. Expires in days from ____Date Zofran No Notes: [facility] 6-28 (Same as: l 05:54: Zofran) [place] 00 MEDICATION WASTE Product Size: 4 mg [...] Perles 6-28 (Same As: l 05:54: Tessalon [place] 00 Perles) "Do Not Crush" simethicone No Notes: Heath bobo 6-28 (Same as: l 05:54: Mylicon) [place] 8.6 No Notes: Memori a mg oral 6-28 (Same as: l tablet 05:54: Senokot) [place] 00 Colace 50 No Notes: Memori a mg oral 6-28 (Same as: l capsule 05:54: Colace) [place] 00 Zofran No Notes: [facility] 6-28 (Same as: l 05:54: Zofran) [place] 00 MEDICATION WASTE Product Size: 4 mg Product Wasted: ___ mg Tylenol No Notes: Do Memor ia 6-28 not exceed l 05:54: 4 gm/day. [place] 00 (Same as: Tylenol) [place] No Notes: [facility] Perles 6-28 (Same As: l 05:54: Tessalon [place] 00 Perles) "Do Not Crush" simethicone No Notes: Heath bobo 6-28 (Same as: l 05:54: Mylicon) [place] 00 senna 8.6 No Notes: Memori a mg oral 6-28 (Same as: l tablet 05:54: Senokot) [place] 00 Colace 50 No Notes: Memori a mg oral 6-28 (Same as: l capsule 05:54: Colace) [place] 00 Zofran No Notes: [facility] 6-28 (Same as: l 05:54: Zofran) [place] 00 MEDICATION WASTE Product Size: 4 mg Product Wasted: ___ mg Tylenol No Notes: Do Memor ia 6-28 not exceed l 05:54: 4 gm/day. [place] 00 (Same as: Tylenol) [place] No Notes: [facility]oria Perles 6-28 (Same As: l 05:54: Tessalon [place] 00 Perles) "Do Not Crush" simethicone No Notes: Heath bobo 6-28 (Same as: l 05:54: Mylicon) [place] 00 senna 8.6 No Notes: Memori a mg oral 6-28 (Same as: l tablet 05:54: Senokot) [place] 00 Colace 50 No Notes: Memori a mg oral 6-28 (Same as: l capsule 05:54: Colace) [place] 00 Zofran No Notes: [facility] 6-28 (Same as: l 05:54: Zofran) [place] 00 MEDICATION WASTE Product Size: 4 mg Product Wasted: ___ mg Tylenol No Notes: Do Memor ia 6-28 not exceed l 05:54: 4 gm/day. [place] 00 (Same as: Tylenol) sal2021 No Notes: Memoria Perles 6-28 (Same As: [...] mg oral 6-28 Refill(s) l tablet 05:53: [place] 00 pantoprazol Yes 0 Memori a e 40 mg 6-28 Refill(s) l oral 05:53: [place] enteric 00 coated tablet clindamycin 2021-0 Yes [...] KwikPen 100 6-28 Refill(s) l units/mL 05:53: 00 s solution Dialyvite 2021-0 Yes 0 [facility] 800 Ultra D 6-28 Refill(s) l oral tablet 05:53: [place] n 00 glipiZIDE Yes 0 Memoria 10 mg oral 6-28 Refill(s) l tablet 05:53: [place] 00 cefTRIAXone No Notes: Heath bobo + Sodium 6-28 (Same As: l Chloride 05:27: Rocephin). Her [place] 0.9% IV 50 00 Use with mL 100 mL NS and infuse over 30 min MEDICATION WASTE Product Size: 1000 mg Product Wasted: ___ mg cefTRIAXone 0 No Notes: Heath bobo + Sodium 6-28 (Same As: l Chloride 05:27: Rocephin). Her [place] 0.9% IV 50 00 Use with mL 100 mL NS and infuse over 30 min MEDICATION WASTE Product Size: 1000 mg Product Wasted: ___ mg cefTRIAXone 0 No Notes: Heath bobo + Sodium 6-28 (Same As: l Chloride 05:27: Rocephin). Her [place] 0.9% IV 50 00 Use with mL 100 mL NS and infuse over 30 min MEDICATION WASTE Product Size: 1000 mg Product Wasted: ___ mg cefTRIAXone 0 No Notes: Heath bobo + Sodium 6-28 (Same As: l Chloride 05:27: Rocephin). Her [place] 0.9% IV 50 00 Use with mL 100 mL NS and infuse over 30 min MEDICATION WASTE Product Size: 1000 mg Product Wasted: ___ mg cefTRIAXone 0 No Notes: Heath bobo + Sodium 6-28 (Same As: l Chloride 05:27: Rocephin). Her [place] 0.9% IV 50 00 Use with mL 100 mL NS and infuse over 30 min MEDICATION WASTE Product Size: 1000 mg Product Wasted: ___ mg cefTRIAXone 0 No Notes: Heath bobo + Sodium 6-28 (Same As: l Chloride 05:27: Rocephin). Her [place] 0.9% IV 50 00 Use with mL 100 mL NS and infuse over 30 min MEDICATION WASTE Product Size: 1000 mg Product Wasted: ___ mg Protonix 0 No Notes: For Mem oria 6-28 IV push l 03:37: reconstitu [place] 00 te with 10 ml 0.9% sodium chloride and push over 2 minutes. (Same as: Protonix) Protonix No Notes: For Mem oria 6-28 IV push l 03:37: reconstitu [place] 00 te with 10 ml 0.9% sodium chloride and push over 2 minutes. (Same as: Protonix) Protonix No Notes: For Mem oria 6-28 IV push l 03:37: reconstitu [place] 00 te with 10 ml 0.9% sodium chloride and push over 2 minutes. (Same as: Protonix) Protonix No Notes: For Mem oria 6-28 IV push l 03:37: reconstitu [place] 00 te with 10 ml 0.9% sodium chloride and push over 2 minutes. (Same as: Protonix) Protonix No Notes: For Mem oria 6-28 IV push l 03:37: reconstitu [place] 00 te with 10 ml 0.9% sodium chloride and push over 2 minutes. (Same as: Protonix) Protonix No Notes: For Mem oria 6-28 IV push l 03:37: reconstitu [place] 00 te with 10 ml 0.9% sodium chloride and push over 2 minutes. (Same as: Protonix) Advair HFA Advair HFA Yes [place] 2 puffs Common 1-15 [facility] 00:00: - [facility] BD BD 2018-05 Yes [place] 1 needle Common Ultra-Fine Ultra-Fine 0-09 [facility] with Sp jerome Christina Pen Christina Pen 00:00: Basaglar - [facility] [place] 00 [facility] BD BD 2018-05 No QD BD Ultra-Fine Ultra-Fine 0-09 Ultra-Fine Christina Pen Christina Pen 00:00: Christina Pen [place] 4mm [place] 4mm 00 [place] x 32Gm x 32Gm 4mm x 32Gm BD BD 2018-05 No QD BD Ultra-Fine Ultra-Fine 0-09 Ultra-Fine Christina Pen Christina Pen 00:00: Christina Pen [place] 4mm [place] 4mm 00 [place] x 32Gm x 32Gm 4mm x 32Gm BD BD 2018-05 No QD BD Ultra-Fine Ultra-Fine 0-09 Ultra-Fine Christina Pen Christina Pen 00:00: Christina Pen [place] 4mm [place] 4mm 00 [place] x 32Gm x 32Gm 4mm x 32Gm [facility] 2018- No QD BD Ultra-Fine Ultra-Fine 0-09 Ultra-Fine Christina Pen Christina Pen 00:00: Christina Pen [place] 4mm [place] 4mm 00 [place] x 32Gm x 32Gm 4mm x 32Gm [facility] 2018- No QD BD Ultra-Fine Ultra-Fine 0-09 Ultra-Fine Christina Pen Christina Pen 00:00: Christina Pen [place] 4mm [place] 4mm 00 [place] x 32Gm x 32Gm 4mm x 32Gm [facility] 2018- No QD BD Ultra-Fine Ultra-Fine 0-09 Ultra-Fine Christina Pen Christina Pen 00:00: Christina Pen [place] 4mm [place] 4mm 00 [place] x 32Gm x 32Gm 4mm x 32Gm [facility] 2018- No QD BD Ultra-Fine Ultra-Fine 0-09 Ultra-Fine Christina Pen Christina Pen 00:00: Christina Pen [place] 4mm [place] 4mm 00 [place] x 32Gm x 32Gm 4mm x 32Gm [facility] 2018- No QD BD Ultra-Fine Ultra-Fine 0-09 Ultra-Fine [place] Pen Christina Pen 00:00: Christina Pen [place] 4mm [place] 4mm 00 [place] x 32Gm x 32Gm 4mm x 32Gm [facility] 2018-05 No QD BD Ultra-Fine Ultra-Fine 0-09 Ultra-Fine Christina Pen Christina Pen 00:00: Christina Pen [place] 4mm [place] 4mm 00 [place] x 32Gm x 32Gm 4mm x 32Gm [facility] 2018- No QD BD Ultra-Fine Ultra-Fine 0-09 Ultra-Fine Christina Pen Christina Pen 00:00: Christina Pen [place] 4mm [place] 4mm 00 [place] x 32Gm x 32Gm 4mm x 32Gm [facility] 2018-05 No QD BD Ultra-Fine Ultra-Fine 0-09 Ultra-Fine Christina Pen Christina Pen 00:00: Christina Pen [place] 4mm [place] 4mm 00 [place] x 32Gm x 32Gm 4mm x 32Gm [facility] 2018- No QD BD Ultra-Fine Ultra-Fine 0-09 Ultra-Fine Christina Pen Christina Pen 00:00: Christina Pen [place] 4mm [place] 4mm 00 [place] x 32Gm x 32Gm 4mm x 32Gm [facility] 2018- No QD BD Ultra-Fine Ultra-Fine 0-09 Ultra-Fine Christina Pen Christina Pen 00:00: Christina Pen [place] 4mm [place] 4mm 00 [place] x 32Gm x 32Gm 4mm x 32Gm [facility] 2018-05 No QD BD Ultra-Fine Ultra-Fine 0-09 Ultra-Fine Christina Pen Christina Pen 00:00: Chirstina Pen [place] 4mm [place] 4mm 00 [place] x 32Gm x 32Gm 4mm x 32Gm [facility] 2018-05 No QD BD Ultra-Fine Ultra-Fine 0-09 Ultra-Fine Christina Pen Christina Pen 00:00: Christina Pen [place] 4mm [place] 4mm 00 [place] x 32Gm x 32Gm 4mm x 32Gm [facility] 2018-05 No QD BD Ultra-Fine Ultra-Fine 0-09 Ultra-Fine Christina Pen Christina Pen 00:00: Christina Pen [place] 4mm [place] 4mm 00 [place] x 32Gm x 32Gm 4mm x 32Gm [facility] 2018-05 No QD BD Ultra-Fine Ultra-Fine 0-09 Ultra-Fine Christina Pen Christina Pen 00:00: Christina Pen [place] 4mm [place] 4mm 00 [place] x 32Gm x 32Gm 4mm x 32Gm [facility] 2018-05 No QD BD Ultra-Fine Ultra-Fine 0-09 Ultra-Fine Christina Pen Christina Pen 00:00: Christina Pen [place] 4mm [place] 4mm 00 [place] x 32Gm x 32Gm 4mm x 32Gm [facility] 2018-05 No QD BD Ultra-Fine Ultra-Fine 0-09 Ultra-Fine Christina Pen Christina Pen 00:00: Chrsitina Pen [place] 4mm [place] 4mm 00 [place] x 32Gm x 32Gm 4mm x 32Gm [facility] 2018-05 No QD BD Ultra-Fine Ultra-Fine 0-09 Ultra-Fine Christina Pen Christina Pen 00:00: Christina Pen [place] 4mm [place] 4mm 00 [place] x 32Gm x 32Gm 4mm x 32Gm [facility] 2018-05 No QD BD Ultra-Fine Ultra-Fine 0-09 Ultra-Fine Christina Pen Christina Pen 00:00: Christina Pen [place] 4mm [place] 4mm 00 [place] x 32Gm x 32Gm 4mm x 32Gm [facility] 2018-05 No QD BD Ultra-Fine Ultra-Fine 0-09 Ultra-Fine Christina Pen Christina Pen 00:00: Christina Pen [place] 4mm [place] 4mm 00 [place] x 32Gm x 32Gm 4mm x 32Gm BD Pen BD Pen No BD Pen [...] 1 tablet C ommon 750 750 [facility] Basaglar Basaglar Yes La 52 Units C ommon KwikPen KwikPen [facility] PreserVisio PreserVisio Yes La as Common n AREDS n AREDS [facility] Citalopram Citalopram Yes La 1 tablet Common Hydrobromid Hydrobromid [facility] [place] [facility] Stool Stool Yes La not Common Softener Softener Fortune defined [facility] Gentle Gentle Yes La 1 tablet Commo n Laxative Laxative Fortune as needed S pirit [facility] Atorvastati Atorvastati Yes La 1 tablet Common n Calcium n Calcium Fortune [facility] Contour Contour Yes La USE 3 Common Test Test Fortune TIMES A [facility] DAY [facility] Eliquis 2.5 Eliquis 2.5 Yes La 1 tablet Common mg mg Fortune [facility] Multivitami Multivitami Yes La as Common n Adult n Adult Fortune directed [facility] Carvedilol Carvedilol Yes La TAKE 1 Common Fortune TABLET BY Spirit MOUTH - [facility] TWICE A St DAY ON NON [facility] DIALYSIS Medical DAYS Center Atorvastati Atorvastati Yes La TAKE 1 Common n Calcium n Calcium Fortune TABLET BY Spirit MOUTH - [facility] EVERY DAY [facility] GlipiZIDE GlipiZIDE Yes La 1 tablet Common [facility] Basaglar Basaglar Yes La 50 Units C ommon KwikPen KwikPen [facility] Advair HFA Advair HFA No [...] Dexcom G6 Dexcom G6 No Dexcom G6 Grain Wafer Machine Operator - Grain Wafer Machine Operator - Grain Wafer Machine Operator - Carvedilol Carvedilol No Carvedilol 12.5 MG [...] Dexcom G6 Dexcom G6 No Dexcom G6 Grain Wafer Machine Operator - Grain Wafer Machine Operator - Grain Wafer Machine Operator - glipiZIDE 5 glipiZIDE 5 No 1{table [...] Dexcom G6 Dexcom G6 No Dexcom G6 Grain Wafer Machine Operator - Grain Wafer Machine Operator - Grain Wafer Machine Operator - Ipratropium Ipratropium No Ipratropiu -Albuterol -Albuterol [...] Dexcom G6 Dexcom G6 No Dexcom G6 Grain Wafer Machine Operator - Grain Wafer Machine Operator - Grain Wafer Machine Operator - Gentle Gentle No 1{table QD Gentle [...] Dexcom G6 Dexcom G6 No Dexcom G6 Grain Wafer Machine Operator - Grain Wafer Machine Operator - Grain Wafer Machine Operator - PreserVisio PreserVisio No PreserVisi n AREDS [...] Dexcom G6 Dexcom G6 No Dexcom G6 Grain Wafer Machine Operator - Grain Wafer Machine Operator - Grain Wafer Machine Operator - Advair HFA Advair HFA No 2{puffs [...] Dexcom G6 Dexcom G6 No Dexcom G6 Grain Wafer Machine Operator - Grain Wafer Machine Operator - Grain Wafer Machine Operator - Advair HFA Advair HFA No 2{puffs [...] Dexcom G6 Dexcom G6 No Dexcom G6 Grain Wafer Machine Operator - Grain Wafer Machine Operator - Grain Wafer Machine Operator - Advair HFA Advair HFA No 2{puffs [...] Dexcom G6 Dexcom G6 No Dexcom G6 Grain Wafer Machine Operator - Grain Wafer Machine Operator - Grain Wafer Machine Operator - Atorvastati Atorvastati No 1{table QD Atorvastat [...] Dexcom G6 Dexcom G6 No Dexcom G6 Grain Wafer Machine Operator - Grain Wafer Machine Operator - Grain Wafer Machine Operator - Atorvastati Atorvastati No Atorvastat n Calcium n Calcium in Calcium 40 MG 40 MG 40 MG Pantoprazol Pantoprazol No Pantoprazo e Sodium e Sodium le Sodium BD Pen BD Pen No BD Pen Needle Christnia Needle Christina Needle U/F 32G X 4 [...] Dexcom G6 Dexcom G6 No Dexcom G6 Grain Wafer Machine Operator - Grain Wafer Machine Operator - Grain Wafer Machine Operator - Atorvastati Atorvastati No Atorvastat n Calcium [...] t_as_ne Laxative 5 MG MG eded} MG Immunizations Ordered Immunization Filled Immunization Date Status Commen ts Source Name Name FluAD FluAD 2021-03-30 [facility]pleted [facility] FluAD FluAD 2021-03-30 [facility]pleted [facility] FluAD FluAD 2021-03-30 [facility]pleted [facility]:13:00 - [facility] FluAD FluAD 2021-03-30 [facility]pleted [facility] 13:13:00 - [facility] FluAD FluAD 2021-03-30 [facility]pleted [facility]:13:[facility] - [facility] FluAD FluAD 2021-03-30 [facility]pleted [facility] 13:13:00 - [facility] FluAD FluAD 2021-03-30 Completed [facility] 13:13:00 - [facility] FluAD FluAD 2021-03-30 Completed [facility]:13:00 - [facility] FluAD FluAD 2021-03-30 Completed [facility]:13:[facility] - [facility] FluAD FluAD 2021-03-30 Completed [facility] 13:13:00 - [facility] FluAD FluAD 2021-03-30 [facility]pleted [facility] 13:13:00 - [facility] FluAD FluAD 2021-03-30 Completed [facility] 13:13:00 - [facility] FluAD FluAD 2021-03-30 Completed [facility] 13:13:00 - [facility] FluAD FluAD 2021-03-30 Completed [facility] 13:13:00 - [facility] FluAD FluAD 2021-03-30 [facility]pleted [facility] 13:13:00 - [facility] FluAD FluAD 2021-03-30 Completed [facility] 13:13:00 - [facility] FluAD FluAD 2021-03-30 Completed [facility] 13:13:00 - [facility] FluAD FluAD 2021-03-30 Completed [facility] 13:13:00 - [facility] FluAD FluAD 2021-03-30 Completed [facility] 13:13:00 - [facility] FluAD FluAD 2021-03-30 Completed [facility] 13:13[facility]00 - [facility] COVID-19 Vaccine COVID-19 Vaccine 2020-08-19 Completed [facility] (Andrea) (Andrea) 09:17: - [facility] COVID-19 Vaccine COVID-19 Vaccine 2020-08-19 Completed [facility] (Andrea[facility] (Andrea) 09:17: - [facility] COVID-19 Vaccine COVID-19 Vaccine 2020-08-19 Completed [facility] (Andrae[facility] (Andrea) 09:17:00 - [facility] COVID-19 Vaccine COVID-19 Vaccine 2020-08-19 Completed [facility] (Andrea[facility] (Andrea) 09:17:00 - [facility] COVID-19 Vaccine COVID-19 Vaccine 2020-08-19 Completed [facility] (Andrea) (Andrea) 09:17:00 [facility] COVID-19 Vaccine COVID-19 Vaccine 2020-08-19 Completed [facility] (Andrea) (Andrea) 09:17:00 - [facility] COVID-19 Vaccine COVID-19 Vaccine 2020-08-19 Completed [facility] (Andrea) (Andrea) 09:17:00 [facility] COVID-19 Vaccine COVID-19 Vaccine 2020-08-19 Completed [facility] (Andrea) (Andrea) 09:17:00 [facility] COVID-19 Vaccine COVID-19 Vaccine 2020-08-19 Completed [facility] (Andrea) (Andrea) 09:17:00 - [facility] COVID-19 Vaccine COVID-19 Vaccine 2020-08-19 Completed [facility] (Andrea) (Andrea) 09:17:00 [facility] COVID-19 Vaccine COVID-19 Vaccine 2020-08-19 Completed [facility] (Andrea) (Andrea) 09:17:00 [facility] COVID-19 Vaccine COVID-19 Vaccine 2020-08-19 Completed [facility] (Andrea) (Andrea) 09:17:00 [facility] COVID-19 Vaccine COVID-19 Vaccine 2020-08-19 Completed [facility] (Andrea) (Andrea) 09:17:00 [facility] COVID-19 Vaccine COVID-19 Vaccine 2020-08-19 Completed [facility] (Andrea) (Andrea) 09:17:00 [facility] COVID-19 Vaccine COVID-19 Vaccine 2020-08-19 Completed [facility] (Andrea) (Andrea) 09:17:00 [facility] COVID-19 Vaccine COVID-19 Vaccine 2020-08-19 Completed [facility] (Andrea) (Andrea) 09:17:00 - [facility] COVID-19 Vaccine COVID-19 Vaccine 2020-08-19 Completed [facility] (Andrea[facility] (Andrea) 09:17:00 - [facility] COVID-19 Vaccine COVID-19 Vaccine 2020-08-19 Completed [facility] (Andrea) (Andrea) 09:17:00 - [facility] COVID-19 Vaccine COVID-19 Vaccine 2020-08-19 Completed [facility] (Andrea[facility] (Andrea) 09:17:00 - [facility] COVID-19 Vaccine COVID-19 Vaccine 2020-08-19 Completed [facility] (Andrea) (Andrea) 09:17:00 [facility] COVID-19 Vaccine COVID-19 Vaccine 2020-08-19 Completed [facility] (Andrea) (Andrea) 09:17:00 - [facility] COVID-19 Vaccine COVID-19 Vaccine 2020-08-19 Completed [facility] (Andrea) (Andrea) 09:17:00 [facility] Vital Signs Vital Name Observation Time Observation Value Comments Source Systolic blood 2022-10-31 17:36:00 132 mm[Hg] Univer sity of pressure [facility] Diastolic blood 2022-10-31 17:36:00 61 mm[Hg] Unive rsity of pressure [facility] Heart rate 2022-10-31 17:36:00 67 /min [facility] Respiratory rate 2022-10-31 17:36:00 19 /min [facility] Oxygen saturation in 2022-10-31 17:36:00 100 /min [facility] Arterial blood by [facility] Pulse oximetry Branch Body temperature 2022-10-31 13:59:00 37.39 Makayla [facility] Body height 2022-10-31 13:59:00 177.8 cm [facility] Body weight 2022-10-31 13:59:00 71.668 kg [facility] BMI 2022-10-31 13:59:00 22.67 kg/m2 [facility] Heart rate 2022-10-15 19:00:00 92 /min [facility] Respiratory rate 2022-10-15 19:00:00 13 /min [facility] Oxygen saturation in 2022-10-15 19:00:00 86 /min [facility] Arterial blood by [facility] Pulse oximetry Branch Systolic blood 2022-10-15 17:00:00 144 mm[Hg] Univer sity of pressure [facility] Diastolic blood 2022-10-15 17:00:00 53 mm[Hg] Unive rsity of pressure [facility] Body temperature 2022-10-15 16:08:00 37.44 [facility]ayla [facility] 2022-10-15 14:00:00 70.489 kg [facility] BMI 2022-10-15 14:00:00 25.86 kg/m2 [facility] Body height 2022-10-10 19:00:00 165.1 cm [facility] height 2022-02-17 15:00:00 70 [in_i] [facility] weight 2022-02-17 15:00:00 208 [lb_av] [facility] temperature 2022-02-17 15:00:00 98.1 [degF] [facility] bmi 2022-02-17 15:00:00 29.84 kg/m2 [facility] blood pressure 2022-02-17 15:00:00 121 mm[Hg] [facility] systolic [facility] blood pressure 2022-02-17 15:00:00 61 mm[Hg] [facility] - diastolic [facility] height 2022-01-06 14:30:00 70 [in_i] Common [facility] weight 2022-01-06 14:30:00 208 [lb_av] [facility] bmi 2022-01-06 14:30:00 29.84 kg/m2 [facility] blood pressure 2022-01-06 14:30:00 137 mm[Hg] [facility] - systolic [facility] blood pressure 2022-01-06 14:30:00 79 mm[Hg] [facility] - diastolic [facility] height 2021-11-03 09:45:00 70 [in_i] [facility] - [facility] weight 2021-11-03 09:45:00 210 [lb_av] [facility] - [facility] bmi 2021-11-03 09:45:00 30.13 kg/m2 [facility] - [facility] blood pressure 2021-11-03 09:45:00 144 mm[Hg] [facility] - systolic [facility] blood pressure 2021-11-03 09:45:00 86 mm[Hg] [facility] - diastolic [facility] height 2021-07-28 14:10:00 70 [facility]in[facility] weight 2021-07-28 14:10:00 211.8 [lb_av] [facility] temperature 2021-07-28 14:10:00 97.5 [degF] Common S pirit [facility] bmi 2021-07-28 14:10:00 30.39 kg/m2 [facility] oximetry 2021-07-28 14:10:00 93 % [facility] 2021-07-28 14:10:00 16 /min [facility] on [facility] - [facility] blood pressure 2021-07-28 14:10:00 134 mm[Hg] [facility] - systolic [facility] blood pressure 2021-07-28 14:10:00 63 mm[Hg] [facility] - diastolic [facility] height 2021-07-28 13:20:00 70 [in_i] Common S pirit [facility] weight 2021-07-28 13:20:00 211.8 [lb_av] [facility] temperature 2021-07-28 13:20:00 97.5 [degF] Common S pirit [facility] bmi 2021-07-28 13:20:00 30.39 kg/m2 Common [facility] oximetry 2021-07-28 13:20:00 93 % Common [facility] respiratory rate 2021-07-28 13:20:00 16 /min [facility] blood pressure 2021-07-28 13:20:00 134 mm[Hg] Common [facility] - systolic [facility] blood pressure 2021-07-28 13:20:00 62 mm[Hg] Common [facility] - diastolic [facility] height 2021-04-28 13:10:00 70 [in_i] Common S [facility] weight 2021-04-28 13:10:00 215.9 [lb_av] [facility] temperature 2021-04-28 13:10:00 97.3 [degF] Common [facility] bmi 2021-04-28 13:10:00 30.98 kg/m2 [facility] oximetry 2021-04-28 13:10:00 95 % [facility] respiratory rate 2021-04-28 13:10:00 17 /min [facility] blood pressure 2021-04-28 13:10:00 121 mm[Hg] [facility] - systolic [facility] blood pressure 2021-04-28 13:10:00 60 mm[Hg] Common [facility] - diastolic [facility] height 2021-03-12 09:30:00 70 [in_i] Common S [facility] weight 2021-03-12 09:30:00 211.4 [lb_av] [facility] temperature 2021-03-12 09:30:00 97.7 [degF] [facility] bmi 2021-03-12 09:30:00 30.33 kg/m2 Common [facility] oximetry 2021-03-12 09:30:00 95 % Common [facility] respiratory rate 2021-03-12 09:30:00 16 /min [facility] blood pressure 2021-03-12 09:30:00 132 mm[Hg] [facility] - systolic [facility] blood pressure 2021-03-12 09:30:00 67 mm[Hg] [facility] - diastolic [facility] Heart Rate 2022-01-02 21:14:00 [facility] [place] [facility] Rate 2022-01-02 21:14:00 [facility] [place] Systolic (mm Hg) 2022-01-02 21:14:00 [facility] Diastolic (mm Hg) 2022-01-02 21:14:00 [facility] [place] Height 2022-01-02 17:28:00 167.64 cm [facility] [place] BMI Calculated 2022-01-02 17:28:00 [facility] Weight 2022-01-02 17:28:00 [facility] [place] Systolic (mm Hg) 2022-01-02 17:28:00 [facility] [place] Diastolic (mm Hg) 2022-01-02 17:28:00 [facility] Heart Rate 2022-01-02 17:28:00 [facility] [place] Respitory Rate 2022-01-02 17:28:00 [facility] Temperature Oral (F) 2022-01-02 17:28:00 97.5 F [facility] Temperature Oral (F) 2021-12-17 00:00:00 98.0 F [facility] [place] Heart Rate 2021-12-17 00:00:00 [facility] [place] Respitory Rate 2021-12-17 00:00:00 [facility] [place] Systolic (mm Hg) 2021-12-17 00:00:00 [facility] [place] Diastolic (mm Hg) 2021-12-17 00:00:00 Mem [facility] [place] Heart Rate 2021-12-16 21:00:00 [facility] Rate 2021-12-16 21:00:00 [facility] Systolic (mm Hg) 2021-12-16 21:00:00 [facility] Diastolic (mm Hg) 2021-12-16 21:00:00 [facility] Temperature Oral (F) 2021-12-16 21:00:00 98.0 F [facility] Heart Rate 2021-12-16 20:20:00 [facility] [place] Respitory Rate 2021-12-16 20:20:00 [facility] Systolic (mm Hg) 2021-12-16 20:20:00 [facility] [place] Diastolic (mm Hg) 2021-12-16 20:20:00 [facility] [place] Temperature Oral (F) 2021-12-16 20:20:00 97.3 F [facility] Rate 2021-12-15 08:58:06 [facility] Systolic (mm Hg) 2021-12-15 08:58:01 [facility] [place] Diastolic (mm Hg) 2021-12-15 08:58:01 [facility] Heart Rate 2021-12-15 08:58:01 [facility] [place] Temperature Oral (F) 2021-12-15 08:57:27 98.2 F [facility] [place] Temperature Oral (F) 2021-12-15 05:00:00 97.5 F [facility] Heart Rate 2021-12-15 05:00:00 [facility] [place] Systolic (mm Hg) 2021-12-15 05:00:00 [facility] [place] Diastolic (mm Hg) 2021-12-15 05:00:00 [facility] [place] Height 2021-12-15 03:03:00 177.8 cm [facility] Weight 2021-12-15 03:03:00 [facility] [place] BMI Calculated 2021-12-15 03:03:00 [facility] Temperature Oral (F) 2021-12-15 01:20:46 97.4 F [facility] [place] Systolic (mm Hg) 2021-12-15 01:20:42 [facility] [place] Diastolic (mm Hg) 2021-12-15 01:20:42 [facility] [place] Respitory Rate 2021-12-15 00:45:00 [facility] Height 2021-12-15 00:13:00 172.72 cm [facility] BMI Calculated 2021-12-15 00:13:00 [facility] [place] Weight 2021-12-15 00:13:00 [facility] [place] Respitory Rate 2021-12-14 23:56:00 [facility] [place] Height 2021-12-14 23:34:00 172.72 cm [facility] Weight 2021-12-14 23:34:00 [facility] [place] Respitory Rate 2021-12-14 23:18:00 [facility] BMI Calculated 2021-12-14 19:29:00 [facility] Temperature Oral (F) 2021-12-04 14:04:00 97.9 F [facility] Heart Rate 2021-12-04 14:04:00 [facility] [place] Respitory Rate 2021-12-04 14:04:00 [facility] [place] Systolic (mm Hg) 2021-12-04 14:04:00 [facility] [place] Diastolic (mm Hg) 2021-12-04 14:04:00 [facility] Temperature Oral (F) 2021-12-04 12:30:00 97.9 F [facility] [place] Heart Rate 2021-12-04 12:30:00 [facility] [place] Respitory Rate 2021-12-04 12:30:00 [facility] [place] Systolic (mm Hg) 2021-12-04 12:30:00 Heath [facility] [place] Diastolic (mm Hg) 2021-12-04 12:30:00 Mem [facility] Respitory Rate 2021-12-04 11:45:00 [facility] Heart Rate 2021-12-04 11:45:00 [facility] [place] Temperature Oral (F) 2021-12-04 11:45:00 98.4 F [facility] [place] Systolic (mm Hg) 2021-12-04 04:57:00 Heath [facility] Diastolic (mm Hg) 2021-12-04 04:57:00 Mem [facility] [place] Weight 2021-12-03 23:22:00 [facility] [place] Respitory Rate 2021-11-27 00:01:00 [facility] [place] Heart Rate 2021-11-26 21:50:00 [facility] [place] Respitory Rate 2021-11-26 21:50:00 [facility] [place] Systolic (mm Hg) 2021-11-26 21:50:00 Heath [facility] Diastolic (mm Hg) 2021-11-26 21:50:00 [facility] [place] Temperature Oral (F) 2021-11-26 18:40:00 98.0 F [facility] [place] Heart Rate 2021-11-26 18:40:00 [facility] [place] Respitory Rate 2021-11-26 18:40:00 Anup chávez [place] Systolic (mm Hg) 2021-11-26 18:40:00 Heath bobol [facility] Diastolic (mm Hg) 2021-11-26 18:40:00 Mem [facility] [place] Heart Rate 2021-11-26 16:41:35 [facility] Systolic (mm Hg) 2021-11-26 16:41:27 Heath [facility] [place] Diastolic (mm Hg) 2021-11-26 16:41:27 [facility] Temperature Oral (F) 2021-11-26 16:40:28 98.4 F [facility] [place] Temperature Oral (F) 2021-11-26 13:00:17 98.3 F [facility] [place] Height 2021-11-25 03:24:00 177.8 cm [facility] Calculated 2021-11-25 03:24:00 Anup chávez [place] Weight 2021-11-25 03:24:00 [facility] Procedures Procedure Date / Time Performing Clinician Source Performed CT ABDOMEN PELVIS WO 2022-10-31 14:52:20 Ronnie Ayala [facility] CONTRAST Medical [place] CT THORAX WO CONTRAST 2022-10-31 14:52:20 Ronnie Ayala [facility] LIPASE 2022-10-31 14:22:00 Ronnie Ayala [facility] COMP. METABOLIC PANEL 2022-10-31 14:22:00 Ronnie Ayala [facility] ([id number]) [facility] CBC WITH DIFF 2022-10-31 14:22:00 Ronnie Ayala [facility] NOTICE OF PRIVACY 2022-10-31 13:54:24 Doctor Unassigned, [facility] PRACTICES [facility] [place] CONSENT/REFUSAL FOR 2022-10-31 13:53:28 Doctor Unassigned, [facility] DIAGNOSIS AND TREATMENT [facility] [place] POCT GLUCOSE 2022-10-15 16:16:00 Mine Mosqueda [facility] (AUTOMATED) [facility] XR CHEST 1 VW 2022-10-15 14:27:00 Abdoul[facility] POCT GLUCOSE 2022-10-15 12:24:00 Dominic [facility] (AUTOMATED) [facility] BASIC METABOLIC PANEL 2022-10-15 09:26:00 Marianna Barbour [facility] (NA, K, CL, CO2, Medical Branch GLUCOSE, BUN, CREATININE, CA) CBC WITH DIFF 2022-10-15 09:26:00 Marianna Barbour [facility] PREPARE PACKED RBC 2022-10-15 05:15:09 Anita Sanchez [facility] POCT GLUCOSE 2022-10-15 01:54:00 Dominic [facility] (AUTOMATED) [facility] XR CHEST 1 VW 2022-10-15 01:09:[facility] WITH 2022-10-14 23:00:51 Marianna Barbour [facility] IMAGING [facility] GLUCOSE BODY FLUID 2022-10-14 22:53:00 [facility] T.PROTEIN BODY FLUID 2022-10-14 22:53:00 Marianna Barbour [facility] BODY FLUID DIRECT COUNT 2022-10-14 22:53:00 Marianna Barbour [facility] BODY FLUID 2022-10-14 22:53:00 Marianna Barbour [facility] CULTURE(AEROBIC/ANAEROB [facility] IC) LDH TOTAL BODY FLUID 2022-10-14 22:53:00 Marianna Barbour [facility] XR CHEST 1 VW 2022-10-14 22:38:00 Abdoul [facility] POCT GLUCOSE 2022-10-14 21:38:00 Mine Mosqueda [facility] (AUTOMATED) [facility] HEPATITIS B SURFACE 2022-10-14 19:06:00 Anita Sanchez [facility] ANTIBODY [facility] HEPATITIS B SURFACE 2022-10-14 19:06:00 Anita Sanchez [facility] ANTIGEN [facility] POCT GLUCOSE 2022-10-14 16:36:00 Dominic, [facility] (AUTOMATED) [facility] POCT GLUCOSE 2022-10-14 12:50:00 Dominic [facility] (AUTOMATED) [facility] PHOSPHORUS 2022-10-14 08:27:00 iMne Mosqueda [facility] MAGNESIUM 2022-10-14 08:27:00 Mine Mosqueda [facility] BASIC METABOLIC PANEL 2022-10-14 08:27:00 Mine Mosqueda [facility] (NA, K, CL, CO2, Medical [facility] GLUCOSE, BUN, CREATININE, CA) VANCOMYCIN TROUGH 2022-10-14 08:27:00 Dahiana Albert [facility] CBC WITH DIFF 2022-10-14 08:27:00 Mine Mosqueda [facility] DISCLOSURE AND CONSENT, 2022-10-14 05:01:00 Doctor Unassigned, [facility] MEDICAL AND SURGICAL [place] [facility] PROCEDURES POCT GLUCOSE 2022-10-14 03:13:00 Dominic [facility] (AUTOMATED) [facility] POCT GLUCOSE 2022-10-13 21:41:00 Dominic [facility] (AUTOMATED) [facility] POCT GLUCOSE 2022-10-13 16:25:00 Dominic [facility] (AUTOMATED) [facility] POCT GLUCOSE 2022-10-13 12:34:00 Dominic [facility] (AUTOMATED) [facility] BASIC METABOLIC PANEL 2022-10-13 09:16:00 Mine Mosqueda [facility] (NA, K, CL, CO2, [facility] GLUCOSE, BUN, CREATININE, CA) CBC WITH DIFF 2022-10-13 09:16:00 Mine Mosqueda [facility] POCT GLUCOSE 2022-10-13 01:24:00 Mine Mosqueda [facility] (AUTOMATED) [facility] POCT GLUCOSE 2022-10-12 21:23:00 Dominic [facility] (AUTOMATED) [facility] TRANSFUSE PACKED RBC 2022-10-12 18:39:00 Luis A [facility] PREPARE PACKED RBC 2022-10-12 18:29:53 Luis A [facility] POCT GLUCOSE 2022-10-12 16:47[facility]00 [facility] BLOOD CULTURE SCREEN 2022-10-12 15:52:00 Luis A [facility] BLOOD CULTURE SCREEN 2022-10-12 15:40:00 Luis A [facility] XR CHEST 1 VW 2022-10-12 14:31:35 Dominic [facility] POCT GLUCOSE 2022-10-12 12:44:00 Dominic [facility] (AUTOMATED) Medical [facility] PHOSPHORUS 2022-10-12 09:58:00 Dominic [facility] MAGNESIUM 2022-10-12 09:58:00 Dominic [facility] TROPONIN I 2022-10-12 09:58:00 Tim Alejandro [facility] BASIC METABOLIC PANEL 2022-10-12 09:58:00 Mine Mosqueda [facility] [facility] (NA, K, CL, CO2, Medical Branch GLUCOSE, BUN, CREATININE, CA) LIPID PANEL 2022-10-12 09:58:00 Tim Alejandro [facility] ([id number])(TOTAL Medical Branch CHOLESTEROL, TRIGLYCERIDES, HDL) CBC WITH DIFF 2022-10-12 09:58:00 [facility]ic [facility] N-TERMINAL PRO-BNP 2022-10-12 09:58:00 Tim Alejandro [facility] POCT GLUCOSE 2022-10-12 06:42:00 Dominic [facility] (AUTOMATED) [facility] TROPONIN I 2022-10-12 03:10:00 Angel [facility] POCT GLUCOSE 2022-10-12 01:19:00 Dominic [facility] (AUTOMATED) [facility] OCCULT (GUAIAC) BLOOD 2022-10-11 21:58:00 Mine Mosqueda [facility] POCT GLUCOSE 2022-10-11 21:19:00 Dominic [facility] (AUTOMATED) [facility] IRON 2022-10-11 18:20:00 Dominic [facility] TOTAL IRON BINDING 2022-10-11 18:20:00 Mine [facility]eda [facility] TROPONIN I 2022-10-11 18:20:00 Luis A [facility] RETICULOCYTES AUTOMATED 2022-10-11 18:20:00 Mine Mosqueda [facility] PROCALCITONIN 2022-10-11 18:20:00 Mine Mosqueda [facility] POCT GLUCOSE 2022-10-11 16:58:00 Dominic [facility] (AUTOMATED) [facility] POCT GLUCOSE 2022-10-11 16:05:00 Dominic [facility] (AUTOMATED) [facility] ABORH CONFIRMATION (LAB 2022-10-11 15:23:00 Luis A [facility] ONLY) [facility] TROPONIN I 2022-10-11 15:08:00 Luis A [facility] POCT GLUCOSE 2022-10-11 14:22:00 Mine Mosqueda [facility] (AUTOMATED) [facility] TRANSTHORACIC ECHO 2022-10-11 13:32:00 Luis A [facility] (TTE) COMPLETE [facility] POCT GLUCOSE 2022-10-11 13:04:00 Dominic [facility] (AUTOMATED) [facility] POCT GLUCOSE 2022-10-11 12:04:00 Dominic [facility] (AUTOMATED) [facility] POCT GLUCOSE 2022-10-11 11:21:00 Dominic [facility] (AUTOMATED) [facility] HB ABO GROUPING 2022-10-11 11:20:00 Luis A [facility] PHOSPHORUS 2022-10-11 09:41:00 Luis A [facility] MAGNESIUM 2022-10-11 09:41:00 Luis A [facility] TROPONIN I 2022-10-11 09:41:00 Luis A [facility] BASIC METABOLIC PANEL 2022-10-11 09:41:00 Luis A [facility] (NA, K, CL, CO2, Medical Branch GLUCOSE, BUN, CREATININE, CA) CBC WITHOUT DIFF 2022-10-11 09:41:00 Luis A [facility] POCT GLUCOSE 2022-10-11 09:41:00 Dominic [facility] (AUTOMATED) Medical Branch N-TERMINAL PRO-BNP 2022-10-11 09:41:00 Angel Gunn [facility] Branch POCT GLUCOSE 2022-10-11 08:43:00 Dominic [facility] (AUTOMATED) Medical Branch POCT GLUCOSE 2022-10-11 07:36:00 Dominic [facility] (AUTOMATED) Medical Branch POCT GLUCOSE 2022-10-11 06:18:00 Dominic [facility] (AUTOMATED) Medical Branch POCT GLUCOSE 2022-10-11 05:52:00 Dominic [facility] (AUTOMATED) Medical Branch POCT GLUCOSE 2022-10-11 04:24:00 Dominic [facility] (AUTOMATED) Medical Branch POCT GLUCOSE 2022-10-11 03:33:00 Dominic [facility] (AUTOMATED) Medical Branch POCT GLUCOSE 2022-10-11 02:08:00 Dominic [facility] (AUTOMATED) Medical Branch POCT GLUCOSE 2022-10-11 01:08:00 Dominic [facility] (AUTOMATED) Medical Branch MRSA / MSSA SCREEN BY 2022-10-11 00:16:00 Mine Mosqueda [facility] PCR, [facility] CRITICAL CARE 2022-10-10 23:43:37 Dom [facility] POCT GLUCOSE 2022-10-10 23:20:00 Dominic [facility] (AUTOMATED) [facility] POCT GLUCOSE 2022-10-10 21:42:00 Dom [facility] (AUTOMATED) [facility] POCT GLUCOSE 2022-10-10 21:25:00 Dom Fabian [facility] (AUTOMATED) [facility] HB ECG ROUTINE & RHYTHM 2022-10-10 21:20:02 Fabian Fernandes [facility] STRIP [facility] AC PANEL 21 + LACTIC 2022-10-10 20:50:00 Fabian Fernandes [facility] ACID [facility] POCT GLUCOSE 2022-10-10 20:32:00 Dom Fabian [facility] (AUTOMATED) [facility] CT THORAX WO CONTRAST 2022-10-10 20:31:25 Fabian Fernandes [facility] CT ABDOMEN PELVIS WO 2022-10-10 20:30:49 Fabian Fernandes [facility] CONTRAST [facility] CT HEAD WO CONTRAST 2022-10-10 20:30:49 Fabian Fernandes [facility] POCT GLUCOSE 2022-10-10 19:43:00 Fabian Fernandes [facility] (AUTOMATED) [facility] XR CHEST 1 VW 2022-10-10 19:40:00 Fabian Fernandes [facility] BLOOD CULTURE SCREEN 2022-10-10 19:38:00 Fabian Fernandes [facility] BLOOD CULTURE WORKUP 2022-10-10 19:38:00 Fabian Fernandes [facility] GRAM POSITIVE BLOOD 2022-10-10 19:38:00 Faiban Fernandes [facility] PATHOGENS DNA [facility] PROBE-AEROBIC ASSIGNMENT OF BENEFITS 2022-10-10 19:11:20 Doctor Unassigned, [facility] [place] [facility] CONSENT/REFUSAL FOR 2022-10-10 19:10:59 Doctor Unassigned, [facility] DIAGNOSIS AND TREATMENT [place] [facility] TROPONIN I 2022-10-10 19:08:00 Fabian Fernandes [facility] COMP. METABOLIC PANEL 2022-10-10 19:08:00 Fabian Fernandes [facility] ([id number]) [facility] CBC WITH DIFF 2022-10-10 19:08:00 Dom Fabian [facility] GLYCOSYLATED HEMOGLOBIN 2022-10-10 19:08:00 Mine Mosqueda [facility] (A1C) [facility] N-TERMINAL PRO-BNP 2022-10-10 19:08:00 Fabian Fernandes [facility] POCT GLUCOSE 2022-10-10 18:58:00 Fabian Fernandes [facility] (AUTOMATED) [facility] [id number] 2021-10-18 00:00:00 Andrade day Encounters Start End Encounter Admission Attending Care Care Encounter Source Date/Time Date/Time Type Type Clinicians Facility Department ID 2022-11-10 Outpatient FortuneSARITHA ramirez STLC [id number] Common 11:36:01 [facility] [address] [facility] 2022-05-20 Outpatient FortuneSARITHA ramirez STLMLC [id number] Common 08:24:01 [place] [address] [facility] 2022-05-15 Outpatient Fortune, STLMLC STLMLC [id number] Common 08:53:00 [place] [address] [facility] 2022-05-11 Outpatient Fortune, STLMLC STLMLC [id number] Common 14:49:00 [place] [address] [facility] 2022-05-08 Outpatient Fortune, STLMLC STLMLC [id number] Common 10:15:01 [place] [address] [facility] 2022-05-07 Outpatient Fortune, STLMLC STLMLC [id number] Common 11:53:00 [place] [address] [facility] 2022-02-18 Outpatient Fortune, STLMLC STLMLC [id number] Common 12:05:01 [place] [address] [facility] 2022-01-01 Outpatient Fortune, STLMLC STLMLC [id number] Common 10:24:01 [place] [address] [facility] 2021-12-29 Outpatient Fortune, STLMLC STLMLC [id number] Common 08:34:00 [place] [facility] 2021-12-[address] [facility] [id number] [place] 14:42:21 [id number] [facility] 2021-11-19 Outpatient Fortune, STLMLC STLMLC [id number] Common 08:42:01 [place] [facility] 2021-11-03 Outpatient Fortune, STLMLC STLMLC [id number] Common 10:33:01 [place] [facility] 2021-10-15 Outpatient 3 [id number] ENCPL REF [id number] [facility] 08:19:25 [facility]18 [facility] [place] 2021-10-14 Outpatient 3 [id number] ENCPL REF [id number] [facility] 11:59:03 0517 [facility] [place] 2021-06-25 Outpatient Fortune, STLMLC STLMLC [id number] [place] 14:22:06 [place] [address] [facility] 2021-06-25 Outpatient Fortune, STLMLC STLMLC [id number] Common 14:13:51 [place] [address] [facility] 2021-06-25 Outpatient Fortune, STLMLC STLMLC [id number] Common 13:38:12 [place] [address] [facility] 2021-06-25 Outpatient Fortune, STLMLC STLMLC [id number] Common 12:43:29 [place] [address] [facility] 2021-06-25 Outpatient Fortune, STLMLC STLMLC [id number] Common 12:42:27 [place] [address] [facility] 2021-06-25 Outpatient Fortune, STLMLC STLMLC [id number] Common 12:31:12 [place] [address] [facility] 2021-06-25 Outpatient Fortune, STLMLC STLMLC [id number] [place] 12:31:03 [place] [address] [facility] 2021-06-25 Outpatient Fortune, STLMLC STLMLC [id number] Common 12:30:21 [place] [address] [facility] 2021-06-25 Outpatient Fortune, STLMLC STLMLC [id number] Common 11:00:43 [place] [address] [facility] 2022-10-31 2022-10-31 [id number] Univers 09:00:00 12:40:00 RONNIE leal [facility] 2022-10-31 2022-10-31 [facility] [id number] Univers 09:00:00 12:40:00 Ronnie CARRASQUILLO [id number] i ty of [id number] [id number] [place] [address] Branch 2022-10-16 2022-10-16 Transition SHAJI Davis [id number] Univers 00:00:00 00:00:00 of Care Ubaldo VALLE [id number] ity [place] [phone] [facility] 403 Branch 2022-10-10 2022-10-15 Inpatient X [facility]GLE [facility] SPEEDY [id number] Univers 13:54:00 14:40:00 MARIANNA leal [facility] 2022-10-10 2022-10-15 Hospital Fabian Fernandes [facility] [id number] Univers 13:54:00 14:40:00 Encounter [id number] [facility] Marianna Barbour [place] [id number] [facility] [id number] [facility] 080 Branch 2022-07-03 2022-07-03 (TEL) STLMLC STLMLC [id number] Co mmon 00:00:00 00:00:00 [facility] 2022-06-08 2022-06-08 (TEL) STLMLC STLMLC [id number] Co mmon 00:00:00 00:00:00 [facility] 2022-05-06 2022-05-06 (TEL) STLMLC STLMLC [id number] Co mmon 00:00:00 00:00:00 [facility] 2022-04-03 2022-04-03 (TEL) STLMLC STLMLC [id number] Co mmon 00:00:00 00:00:00 [facility] 2022-02-17 2022-02-17 (TEL) STLMLC STLMLC [id number] Co mmon 00:00:00 00:00:00 [facility] 2022-02-17 2022-02-17 OFFICE STLMLC STLMLC [id number] Co mmon 00:00:00 00:00:00 VISIT [facility] PT - CHI LEVEL 4 [facility] 2022-01-06 2022-01-06 OFFICE STLMLC STLMLC [id number] Co mmon 00:00:00 00:00:00 VISIT [facility] ESTAB PT - CHI LEVEL 4 [facility] 2022-01-02 2022-01-02 Emergency [place] [id number] Memoria 17:12:00 21:33:00 latrice Celeste 03 [facility] 2022-01-02 2022-01-02 Emergency [facility] [id number] Memoria 17:12:00 21:33:00 r Booker 03 [facility] 2022-01-02 2022-01-02 Emergency E LONG, MHBL MHBL [id number] MHBL 12:12:00 16:33:00 CAREY 2022-01-02 2022-01-02 Outpatient Long, PL PL [id number] 12:12:00 16:33:00 Carey R 03 2022-01-01 2022-01-01 (TEL) STLMLC STLMLC [id number] Co mmon 00:00:00 00:00:00 [facility] 2021-12-31 2021-12-31 (TEL) STLMLC STLMLC [id number] Co mmon 00:00:00 00:00:00 [facility] 2021-12-14 2021-12-17 Inpatient [facility] [id number] Memoria 19:19:49 03:14:00 latrice Celeste 02 [facility] 2021-12-14 2021-12-17 Inpatient [facility] [id number] Memoria 19:19:49 03:14:00 latrice Celeste 02 [facility] 2021-12-14 2021-12-16 Inpatient E LAURENT, MHSTEPHANIE MED [id number] MHBL 18:26:00 22:14:00 ZACHARY 2021-12-14 2021-12-16 Outpatient Sajja, MHPL PL [id number] 14:19:49 22:14:00 Zachary 2021-12-14 2021-12-14 Outpatient Ajibade, MHPL PL [id number] 14:19:49 14:19:49 Monse 02 Anatolywale 2021-12-03 2021-12-04 Emergency [facility] [id number] Memoria 23:19:26 14:53:00 latrice Celeste [facility] 2021-12-03 2021-12-04 Emergency [facility] [id number] Memoria 23:19:26 14:53:00 latrice Celeste l [facility] 2021-12-03 2021-12-04 Outpatient Fadowole, MHPL MHPL [id number] 18:19:26 09:53:00 Pepper 01 [facility] 2021-12-03 2021-12-04 Emergency E FADOWOLE, MHBL MHBL [id number] MHBL 18:19:00 09:53:00 PEPPER 2021-12-01 2021-12-01 Outpatient COH COH PIJFJKR ZIB COH 00:00:00 00:00:00 [id number] 2021-11-25 2021-11-27 Observatio [facility] [id number] Memoria 03:23:10 00:12:00 n r Booker [facility] 2021-11-25 2021-11-27 Observatio [facility] [id number] Memoria 03:23:10 00:12:00 n latrice Celeste [facility] 2021-11-25 2021-11-26 Outpatient E AJIBADE, MHBL MED [id number] BL 10:37:00 19:12:00 MONSE 2021-11-24 2021-11-26 Outpatient Ajibade, MHPL MHPL [id number] 22:23:10 19:12:00 Monse 00 [facility] 2021-11-24 2021-11-26 Outpatient Ajibade, MHPL MHPL [id number] 22:23:10 19:12:00 Monse 00 [facility] 2021-11-24 2021-11-24 (TEL) [facility] [id number] Co mmon 00:00:00 00:00:00 [facility] - [facility] 2021-10-16 2021-11-03 Inpatient 3 NATHANIEL, ENCPL GILDA [id number] [facility] 23:26:00 21:40:00 CHILANGO 0519 [facility] [place] 2021-11-03 2021-11-03 OFFICE STLMLC STLMLC [id number] Co mmon 00:00:00 00:00:00 VISIT NEW [facility] it PT LEVEL 4 - CHI [facility] 2021-10-17 2021-10-17 (TEL) STLMLC STLMLC [id number] Co mmon 00:00:00 00:00:00 [facility] 2021-08-12 2021-08-12 (TEL) STLMLC STLMLC [id number] Co mmon 00:00:00 00:00:00 [facility] 2021-07-28 2021-07-28 OFFICE STLMLC STLMLC [id number] Co mmon 00:00:00 00:00:00 VISIT [facility] ESTAB PT - CHI LEVEL 4 [facility] 2021-07-28 2021-07-28 SUB ANNUAL STLMLC STLMLC [id number] Common 00:00:00 00:00:00 MCR [facility] WELLNESS - [facility] VISIT [facility] 2021-06-12 2021-06-12 (TEL) STLMLC STLMLC [id number] Co mmon 00:00:00 00:00:00 [facility] 2021-05-21 2021-05-21 (TEL) STLMLC STLMLC [id number] Co mmon 00:00:00 00:00:00 [facility] 2021-04-28 2021-04-28 OFFICE STLMLC STLMLC [id number] Co mmon 00:00:00 00:00:00 VISIT [facility] PT - CHI LEVEL 4 [facility] 2021-03-26 2021-03-26 (TEL) STLMLC STLMLC [id number] Co mmon 00:00:00 00:00:00 [facility] 2021-03-12 2021-03-12 OFFICE STLMLC STLMLC [id number] Co mmon 00:00:00 00:00:00 VISIT [facility] PT - CHI LEVEL 4 [facility] 2021-02-10 2021-02-10 Outpatient STLMLC STLMLC [id number] Common 00:00:00 00:00:00 [facility] 2021-01-31 2021-01-31 Outpatient STLMLC STLMLC [id number] Common 00:00:00 00:00:00 [facility] 2021-01-13 2021-01-13 Outpatient STLMLC STLMLC [id number] Common 00:00:00 00:00:00 [facility] 2021-01-08 2021-01-08 Outpatient STLMLC STLMLC [id number] Common 00:00:00 00:00:00 [facility] 2020-12-31 2020-12-31 Outpatient STLMLC STLMLC [id number] Common 00:00:00 00:00:00 [facility] 2020-12-11 2020-12-11 Outpatient STLMLC STLMLC [id number] Common 00:00:00 00:00:00 [facility] 2020-08-19 2020-08-19 Outpatient STLMLC STLMLC [id number] Common 00:00:00 00:00:00 [facility] 2020-07-19 2020-07-19 Outpatient STLMLC STLMLC [id number] Common 00:00:00 00:00:00 [facility] 2020-07-15 2020-07-15 Outpatient STLMLC STLMLC [id number] Common 00:00:00 00:00:00 [facility] 2020-06-14 2020-06-14 Outpatient STLMLC STLMLC [id number] Common 00:00:00 00:00:00 [facility] 2020-06-05 2020-06-05 Outpatient STLMLC STLMLC [id number] Common 00:00:00 00:00:00 [facility] 2020-04-23 2020-04-23 Outpatient STLMLC STLMLC [id number] Common 00:00:00 00:00:00 [facility] 2020-04-22 2020-04-22 Outpatient STLMLC STLMLC [id number] Common 00:00:00 00:00:00 [facility] 2020-04-17 2020-04-17 Outpatient STLMLC STLMLC [id number] Common 00:00:00 00:00:00 [facility] 2020-01-15 2020-01-15 [facility] [id number] Common 10:45:00 10:45:00 [place] [address] [facility] 2019-10-16 2019-10-16 Outpatient [facility] [id number] Common 13:00:00 13:00:00 [place] [address] [facility] 2019-07-17 2019-07-17 Outpatient [facility] [id number] Common 13:45:00 13:45:00 [place] [address] [facility] 2019-06-14 2019-06-14 Outpatient [facility] [id number] Common 11:45:00 11:45:00 [place] [address] [facility] 2019-06-07 2019-06-07 Outpatient [facility] [id number] Common 11:57:00 11:57:00 [place] [address] [facility] 2019-05-17 2019-05-17 Outpatient [facility] [id number] Common 11:30:00 11:30:00 [place] [address] [facility] 2019-04-24 2019-04-24 Outpatient [facility] [id number] Common 14:52:00 14:52:00 [place] [address] [facility] 2019-04-19 2019-04-19 Outpatient [facility] [id number] Common 14:45:00 14:45:00 [place] [address] [facility] 2019-04-06 2019-04-06 Outpatient [facility] [id number] Common 08:35:00 08:35:00 [place] [address] [facility] 2019-04-04 2019-04-04 Out[facility] [id number] Common 08:34:00 08:34:00 [place] [address] [facility] 2019-03-08 2019-03-08 Out[facility] [id number] Common 10:57:00 10:57:00 [place] [address] [facility] 2019-02-20 2019-02-20 Outpatient Cornelio Grimest [id number] Common 14:00:00 14:00:00 t [email or web address] Spir VIVA [facility] Results Test Description Test Time Test Comments Results Result Comments Source COMP. METABOLIC PANEL (11100) 2022-10-31 15:25:34 Test Item Value Reference Range Interpretation Comme nts NA (test code = 0111102666) 136 mmol/L 135-145 K (test code = 3074268382) 4.7 mmol/L 3.5-5.0 CL (test code = 6059456402) 96 mmol/L 98-108 L CO2 TOTAL (test code = 9417060835) 31 mmol/L 23-31 AGAP (test code = 2025272460) 9 2-16 BUN (test code = 0045260817) 26 mg/dL 7-23 H GLUCOSE (test code = 7653082638) 190 mg/dL 70-110 H CREATININE (test code = 2.56 mg/dL 0.60-1.25 H 3003569030) TOTAL BILI (test code = 0.9 mg/dL 0.1-1.2 8345384117) CALCIUM (test code = 1539346859) 9.6 mg/dL 8.6-10.6 T PROTEIN (test code = 7809463228) 6.4 g/dL 6.3-8.2 ALBUMIN (test code = 6009283461) 3.5 g/dL 3.5-5.0 ALK PHOS (test code = 3745652618) 307 U/L 34-122 H ALTv (test code = 1742-6) 27 U/L 5-50 AST(SGOT) (test code = 5487067145) 28 U/L 13-40 eGFR (test code = 9126452282) 24.5 mL/min/1.73m2 MALIK (test code = MALIK) [...] tests). Lab Interpretation (test code = Abnormal 43702-2) [facility] Test Item Value Reference Range Interpretation Comments LIPASE (test code = 7838220248) 212 U/L 0-220 Lab Interpretation (test code = Normal 90761-6) [facility] UNLB2162-50-07 15:12:12 Test Item Value Reference Range Interpretation Comments WBC (test code = 4.75 See_Comment [Automated 6090-2) message] The sy stem which generated this result transmitted reference range : 4.20 - 10.70 10*3/?L. The reference range was not used to interpret this result as normal/abnormal . RBC (test code = 1.98 See_Comment L [Automated 898-8) message] The sy stem which generated this [...] RDW-SD (test code = 45.4 fL 38.5-51.6 55409-3) RDW-CV (test code = 14.3 % 12.1-15.4 788-0) PLT (test code = 191 See_Comment [Automated 777-3) message] The sy stem which generated this result transmitted reference range : 150 - 328 10*3/ ?L. The reference r samantha was not used to interpret this result as normal/abnormal . MPV (test code = 10.1 fL 9.8-13.0 74288-2) NRBC/100 WBC (test 0.0 See_Comment [Automat ed code = 6598728961) message] The system which generated this result transmitted reference range : 0.0 - 10.0 /100 WBCs. The refer ence range was not u sed to interpret th is result as normal/abnormal . NRBC x10^3 (test code See_Comment [Auto mated = 8291525408) message] The s ystem which generated this result transmitted reference range : 10*3/?L. The reference range was not used to interpret this result as normal/abnormal . GRAN MAT (NEUT) % 62.8 % (test code = 770-8) IMM GRAN % (test code 0.60 % = 7656277305) LYMPH % (test code = 23.2 % 736-9) MONO % (test code = 10.9 % 5905-5) EOS % (test code = 2.3 % 713-8) BASO % (test code = 0.2 % 706-2) GRAN MAT x10^3(ANC) 2.98 10*3/uL 1.99-6.95 (test code = 9990470606) IMM GRAN x10^3 (test 0.03 10*3/uL 0.00-0.06 code = 7156629023) LYMPH x10^3 (test code 1.10 10*3/uL 1.09-3.23 = 731-0) MONO x10^3 (test code 0.52 10*3/uL 0.36-1.02 = 742-7) EOS x10^3 (test code = 0.11 10*3/uL 0.06-0.53 711-2) BASO x10^3 (test code 0.01-0.09 = 704-7) Lab Interpretation Abnormal (test code = 77908-3) [facility] GLUCOSE (AUTOMATED)2022-10-15 16:18:07 Test Item Value Reference Range Interpretation Comments POCT GLU (test code = 4900169661) 131 mg/dL 70-110 H Lab Interpretation (test code = Abnormal 79049-8) [facility] GLUCOSE (AUTOMATED)2022-10-15 12:27:02 Test Item Value Reference Range Interpretation Comments POCT GLU (test code = 7611202441) 220 mg/dL 70-110 H Lab Interpretation (test code = Abnormal 52675-0) [facility] (in units), 2 Units 2022-10-15 05:15:09 Test Item Value Reference Range Interpretation Comments Cross Match Result Compatible (test code = 4409) ISBT Blood Type Code 6200 (test code = 849258) Unit Blood Type (test A Pos code = 4410) Unit Number (test [id number] code = 4411) Blood Expiration Date & Time (test code = 023678) Status Information Released (test code = 4412) Product Red Blood Cells Identification (test code = 4413) Product Code (test [id number] Performed at [facility] code = 4414) Laboratory Services - [facility] Blood [address] [place] [phone] Free: [phone] A No. [id number] [facility] GLUCOSE (AUTOMATED)2022-10-15 01:55:15 Test Item Value Reference Range Interpretation Comments POCT GLU (test code = 2742053790) 152 mg/dL 70-110 H Lab Interpretation (test code = Abnormal 61661-6) [facility] (HBsAb)2022-10-15 00:05:17 Test Item Value Reference Range Interpretation Comments HBsAB (test code = Negative 1416514798) HBsAb 3.80 mIU/mL Semi-Quantitative (test code = 8955293794) MALIK (test code = Interpretation: MALIK) ?Hepatitis B Surface Antibody ? Negative - Patient is considered to be not immune to infection with HBV. ? ? Positive - Anti-HBs detected at greater than or equal to 12 mIU/mL. ?Patient is considered to be immune to infection with HBV. ? [facility]is [facility] Surface Antigen (HBsAg)2022-10-14 23:47:58 Test Item Value Reference Range Interpretation Comments HBsAg Semi-Quantitative (test code = 0.09 Negative 5195-3) [facility] GLUCOSE (AUTOMATED)2022-10-14 21:41:48 Test Item Value Reference Range Interpretation Comments POCT GLU (test code = 5316863617) 118 mg/dL 70-110 H Lab Interpretation (test code = Abnormal 00342-6) [facility] GLUCOSE (AUTOMATED)2022-10-14 16:47:29 Test Item Value Reference Range Interpretation Comments POCT GLU (test code = 7479247412) 132 mg/dL 70-110 H Lab Interpretation (test code = Abnormal 75212-0) [facility] [id number] 14:16:04 Test Item Value Reference Range Interpretation Comments Blood Culture-Aerobic Culture positive. No growth AA P revious (test code = 22781-4) See Blood Culture p reliminary Workup for verified result additional was Culture In information. Progress on 10/10/2022 at 19 01 CDTPrevious preliminary verified result was No growth a t 24 hours on 10/11/2022 at 16 01 CDT Blood No organisms No growth Previous Culture-Anaerobic isolated preliminar y (test code = 47860-8) verifi ed result was Culture In Progress on 10/10/2022 at 19 01 CDTPrevious preliminary verified result was No growth a t 24 hours on 10/11/2022 at 16 01 CDTPrevious preliminary verified result was Culture In Progress on 10/12/2022 at 11 51 CDT Lab Interpretation Abnormal (test code = 40846-7) [facility] [id number] 14:16:04 Test Item Value Reference Range Interpretation Comments Blood Culture-Aerobic Culture positive. No growth AA P revious (test code = 49841-4) See Blood Culture p reliminary Workup for verified result additional was Culture In information. Progress on 10/10/2022 at 19 01 CDTPrevious preliminary verified result was No growth a t 24 hours on 10/11/2022 at 16 01 CDT Blood No organisms No growth Previous Culture-Anaerobic isolated preliminar y (test code = 67462-9) verifi ed result was Culture In Progress on 10/10/2022 at 19 01 CDTPrevious preliminary verified result was No growth a t 24 hours on 10/11/2022 at 16 01 CDT Lab Interpretation Abnormal (test code = 04104-3) [facility] GLUCOSE (AUTOMATED)2022-10-14 12:54:35 Test Item Value Reference Range Interpretation Comments POCT GLU (test code = 3287782770) 221 mg/dL 70-110 H Lab Interpretation (test code = Abnormal 20157-2) [facility] GLUCOSE (AUTOMATED)2022-10-14 03:16:56 Test Item Value Reference Range Interpretation Comments POCT GLU (test code = 0150494669) 129 mg/dL 70-110 H Lab Interpretation (test code = Abnormal 78553-9) [facility] GLUCOSE (AUTOMATED)2022-10-13 21:44:17 Test Item Value Reference Range Interpretation Comments POCT GLU (test code = 8081737221) 95 mg/dL 70-110 Lab Interpretation (test code = Normal 65970-5) [facility] GLUCOSE (AUTOMATED)2022-10-13 16:27:34 Test Item Value Reference Range Interpretation Comments POCT GLU (test code = 2312270596) 167 mg/dL 70-110 H Lab Interpretation (test code = Abnormal 36207-1) [facility] GLUCOSE (AUTOMATED)2022-10-13 12:36:25 Test Item Value Reference Range Interpretation Comments POCT GLU (test code = 4984691060) 169 mg/dL 70-110 H Lab Interpretation (test code = Abnormal 91209-3) [facility] GLUCOSE (AUTOMATED)2022-10-13 01:25:21 Test Item Value Reference Range Interpretation Comments POCT GLU (test code = 3346802944) 142 mg/dL 70-110 H Lab Interpretation (test code = Abnormal 49711-3) [facility] DNA [id number] 21:42:17 Test Item Value Reference Range Interpretation Comments Coagulase Negative Positive Negative, See A Staphylococcus (test Comment/Narrative code = 26489-6) MALIK (test code = MALIK) Coagulase negative [...] contact the Antimicrobial Stewardship Program with questions.Pager: ?[phone] Testing included eleven identification and three resistance marker targets. Lab Interpretation Abnormal (test code = 65601-3) [facility] 21:24:15 Test Item Value Reference Range Interpretation Comments POCT GLU (test code = 9395098383) 124 mg/dL 70-110 H Lab Interpretation (test code = Abnormal 22260-4) [facility] Center[facility] Packed RBC (in units), 1 Units 2022-10-12 18:29:53 Test Item Value Reference Range Interpretation Comments Cross Match Result Compatible (test code = 4409) ISBT Blood Type Code 6200 (test code = 595896) Unit Blood Type (test A Pos code = 4410) Unit Number (test [id number] code = 4411) Blood Expiration Date & Time (test code = 438547) Status Information Issued (test code = 4412) Product Red Blood Cells Identification (test code = 4413) Product Code (test [id number] Performed at [facility] code = 4414) Laboratory Services - [facility] Blood [address] [place] [id number] Free: [phone] A No. [id number] [facility]2022-10-12 16:49:16 Test Item Value Reference Range Interpretation Comments POCT GLU (test code = 6634207388) 183 mg/dL 70-110 H Lab Interpretation (test code = Abnormal 40431-8) [facility]AL [id number] 14:35:54 Test Item Value Reference Range Interpretation Comments NT-proBNP (test code = 00468 pg/mL <=450 H 5558953702) MALIK (test code = MALIK) Biotin has been reported to cause a negative bias, interpret results relative to patient's use of biotin. Lab Interpretation (test Abnormal code = 76504-7) [facility] CenterTROPONIN [id number] 14:31:03 Test Item Value Reference Range Interpretation Comments TROPONIN I (test code = 0.296 ng/mL <=0.034 H 4479982779) MALIK (test code = MALIK) Reference (Normal) [...] biotin. Lab Interpretation Abnormal (test code = 51463-6) [facility] CenterLIPID PANEL (12962)(TOTAL CHOLESTEROL, TRIGLYCERIDES, HDL)2022-10-12 14:05:04 Test Item Value Reference Range Interpretation Comments CHOL (test code = 2067117601) 61 mg/dL 120-200 L HDL (test code = 9572560961) 19 mg/dL >=40 L HDLC RATIO (test code = 2650623706) 3.2 <=5.0 TRIG (test code = 2605111747) 82 mg/dL 30-170 LDL CHOL (test code = 88843-6) 26 mg/dL <=160 VLDL (test code = 7623719026) 16 mg/dL 5-60 Lab Interpretation (test code = Abnormal 86096-7) [facility]2022-10-12 12:46:09 Test Item Value Reference Range Interpretation Comments POCT GLU (test code = 0532892637) 139 mg/dL 70-110 H Lab Interpretation (test code = Abnormal 31327-6) [facility] METABOLIC PANEL (NA, K, CL, CO2, GLUCOSE, BUN, CREATININE, CA)2022-10-12 11:04:31 Test Item Value Reference Range Interpretation Comments NA (test code = 136 mmol/L 135-145 0513933897) K (test code = 4.9 mmol/L 3.5-5.0 1732057953) CL (test code = 99 mmol/L 98-108 4608477972) CO2 TOTAL (test code = 27 mmol/L 23-31 8458870775) AGAP (test code = 10 2-16 6806287784) BUN (test code = 54 mg/dL 7-23 H 4330073977) GLUCOSE (test code = 136 mg/dL 70-110 H 3529809890) CREATININE (test code = 4.66 mg/dL 0.60-1.25 H 3105363412) CALCIUM (test code = 9.0 mg/dL 8.6-10.6 7600937369) eGFR (test code = 12.3 mL/min/1.73m2 8330649485) MALIK (test code = MALIK) Association of [...] tests). Lab Interpretation Abnormal (test code = 21701-5) [facility]MAGN[facility]IUM2023-[facility]-15 11:04:31 Test Item Value Reference Range Interpretation Comments MAGNESIUM (test code = 6458399010) 1.9 mg/dL 1.7-2.4 Lab Interpretation (test code = Normal 02784-6) [facility] CenterPHOSPHORUS2023-[facility]-15 11:04:11 Test Item Value Reference Range Interpretation Comments PHOSPHORUS (test code = 6003138377) 3.8 mg/dL 2.5-5.0 Lab Interpretation (test code = Normal 13347-8) [facility] CenterCB WITH [id number] 10:44:53 Test Item Value Reference Range Interpretation Comments WBC (test code = 5.14 See_Comment [Automated 1590-2) message] The sy stem which generated this result transmitted reference range : 4.20 - 10.70 10*3/?L. The reference range was not used to interpret this result as normal/abnormal . RBC (test code = 2.26 See_Comment L [Automated 792-8) message] The sy stem which generated this [...] RDW-SD (test code = 46.5 fL 38.5-51.6 56701-0) RDW-CV (test code = 14.5 % 12.1-15.4 788-0) PLT (test code = 129 See_Comment L [Automated 777-3) message] The sy stem which generated this result transmitted reference range : 150 - 328 10*3/ ?L. The reference r samantha was not used to interpret this result as normal/abnormal . MPV (test code = 9.7 fL 9.8-13.0 L 71585-6) NRBC/100 WBC (test 0.0 See_Comment [Automat ed code = 0733428416) message] The system which generated this result transmitted reference range : 0.0 - 10.0 /100 WBCs. The refer ence range was not u sed to interpret th is result as normal/abnormal . NRBC x10^3 (test code See_Comment [Auto mated = 6287476858) message] The s ystem which generated this result transmitted reference range : 10*3/?L. The reference range was not used to interpret this result as normal/abnormal . GRAN MAT (NEUT) % 70.2 % (test code = 770-8) IMM GRAN % (test code 0.40 % = 4815415552) LYMPH % (test code = 19.3 % 736-9) MONO % (test code = 7.4 % 5905-5) EOS % (test code = 2.3 % 713-8) BASO % (test code = 0.4 % 706-2) GRAN MAT x10^3(ANC) 3.61 10*3/uL 1.99-6.95 (test code = 4363162004) IMM GRAN x10^3 (test 0.00-0.06 code = 9063033201) LYMPH x10^3 (test code 0.99 10*3/uL 1.09-3.23 L = 731-0) MONO x10^3 (test code 0.38 10*3/uL 0.36-1.02 = 742-7) EOS x10^3 (test code = 0.12 10*3/uL 0.06-0.53 711-2) BASO x10^3 (test code 0.01-0.09 = 704-7) Lab Interpretation Abnormal (test code = 40904-8) [facility] GLUCOSE (AUTOMATED)2022-10-12 06:45:05 Test Item Value Reference Range Interpretation Comments POCT GLU (test code = 0393687218) 189 mg/dL 70-110 H Lab Interpretation (test code = Abnormal 96024-3) [facility] GLUCOSE (AUTOMATED)2022-10-12 01:24:37 Test Item Value Reference Range Interpretation Comments POCT GLU (test code = 2795008562) 145 mg/dL 70-110 H Lab Interpretation (test code = Abnormal 22875-7) [facility] GLUCOSE (AUTOMATED)2022-10-11 21:34:09 Test Item Value Reference Range Interpretation Comments POCT GLU (test code = 3981700448) 140 mg/dL 70-110 H Lab Interpretation (test code = Abnormal 72551-4) [facility] GLUCOSE (AUTOMATED)2022-10-11 17:09:13 Test Item Value Reference Range Interpretation Comments POCT GLU (test code = 4409769932) 174 mg/dL 70-110 H Lab Interpretation (test code = Abnormal 04930-7) [facility] GLUCOSE (AUTOMATED)2022-10-11 16:19:41 Test Item Value Reference Range Interpretation Comments POCT GLU (test code = 8749957767) 170 mg/dL 70-110 H Lab Interpretation (test code = Abnormal 86165-6) [facility] GLUCOSE (AUTOMATED)2022-10-11 14:32:59 Test Item Value Reference Range Interpretation Comments POCT GLU (test code = 1567097087) 151 mg/dL 70-110 H Lab Interpretation (test code = Abnormal 15548-7) [facility] GLUCOSE (AUTOMATED)2022-10-11 13:15:13 Test Item Value Reference Range Interpretation Comments POCT GLU (test code = 1044987685) 108 mg/dL 70-110 Lab Interpretation (test code = Normal 94420-6) [facility]2022-10-11 12:14:37 Test Item Value Reference Range Interpretation Comments POCT GLU (test code = 5528886330) 106 mg/dL 70-110 Lab Interpretation (test code = Normal 33370-5) [facility] GLUCOSE (AUTOMATED)2022-10-11 11:28:53 Test Item Value Reference Range Interpretation Comments POCT GLU (test code = 4008005445) 121 mg/dL 70-110 H Lab Interpretation (test code = Abnormal 87271-6) [facility] GLUCOSE (AUTOMATED)2022-10-11 09:43:44 Test Item Value Reference Range Interpretation Comments POCT GLU (test code = 3061007042) 129 mg/dL 70-110 H Lab Interpretation (test code = Abnormal 03806-2) [facility] GLUCOSE (AUTOMATED)2022-10-11 08:46:38 Test Item Value Reference Range Interpretation Comments POCT GLU (test code = 3220735224) 101 mg/dL 70-110 Lab Interpretation (test code = Normal 81721-6) [facility] GLUCOSE (AUTOMATED)2022-10-11 07:38:35 Test Item Value Reference Range Interpretation Comments POCT GLU (test code = 6396508111) 102 mg/dL 70-110 Lab Interpretation (test code = Normal 78901-6) [facility] GLUCOSE (AUTOMATED)2022-10-11 06:20:36 Test Item Value Reference Range Interpretation Comments POCT GLU (test code = 8467631142) 112 mg/dL 70-110 H Lab Interpretation (test code = Abnormal 31198-9) [facility]2022-10-11 05:53:46 Test Item Value Reference Range Interpretation Comments POCT GLU (test code = 0793975323) 118 mg/dL 70-110 H Lab Interpretation (test code = Abnormal 20344-2) [facility] GLUCOSE (AUTOMATED)2022-10-11 04:25:32 Test Item Value Reference Range Interpretation Comments POCT GLU (test code = 8635849490) 127 mg/dL 70-110 H Lab Interpretation (test code = Abnormal 15304-4) [facility] GLUCOSE (AUTOMATED)2022-10-11 03:35:04 Test Item Value Reference Range Interpretation Comments POCT GLU (test code = 7637048618) 132 mg/dL 70-110 H Lab Interpretation (test code = Abnormal 24062-0) [facility] GLUCOSE (AUTOMATED)2022-10-11 02:10:18 Test Item Value Reference Range Interpretation Comments POCT GLU (test code = 5358664475) 155 mg/dL 70-110 H Lab Interpretation (test code = Abnormal 80471-9) [facility] CenterGLYCOSYLATED HEMOGLOBIN (A1C)2022-10-11 01:39:22 Test Item Value Reference Range Interpretation Comments HGB A1C (test code = 7.2 % 4.0-5.7 H 4548-4) MALIK (test code = MALIK) Reference RangesNormal: <5.7%Prediabetes: 5.7 - 6.4%Diabetes: > 6.5% Lab Interpretation (test Abnormal code = 14644-6) [facility] GLUCOSE (AUTOMATED)2022-10-11 01:10:41 Test Item Value Reference Range Interpretation Comments POCT GLU (test code = 6241392605) 156 mg/dL 70-110 H Lab Interpretation (test code = Abnormal 96361-6) [facility] GLUCOSE (AUTOMATED)2022-10-10 23:31:02 Test Item Value Reference Range Interpretation Comments POCT GLU (test code = 5418191202) 144 mg/dL 70-110 H Lab Interpretation (test code = Abnormal 52480-3) [facility] GLUCOSE (AUTOMATED)2022-10-10 21:44:27 Test Item Value Reference Range Interpretation Comments POCT GLU (test code = 5522498211) 138 mg/dL 70-110 H Lab Interpretation (test code = Abnormal 02412-8) [facility] GLUCOSE (AUTOMATED)2022-10-10 21:27:07 Test Item Value Reference Range Interpretation Comments POCT GLU (test code = 2204654261) 150 mg/dL 70-110 H Lab Interpretation (test code = Abnormal 52387-5) [facility] + LACTIC [id number] 21:01:36 Test Item Value Reference Range Interpretation Comments PH (test code = 7.31 7.32-7.42 L 3083614026) PCO2 LORENA (test code = 55 See_Comment H [Auto mated 5690262538) message] The sy stem which generated this result transmitted reference range : 41 - 51 mmHg. The reference range was not used to interpret this result as normal/abnormal . PO2 LORENA (test code = 16 See_Comment L [Autom ated 7547698619) message] The sy stem which generated this result transmitted reference range : 25 - 40 mmHg. The reference range was not used to interpret this result as normal/abnormal . HCO3 LORENA (test code = 27 See_Comment [Auto mated 8029034001) message] The sy stem which generated this result transmitted reference range : 24 - 28 mEq/L. The reference range was not used to interpret this result as normal/abnormal . AC VBE(BEAKER) (test 0.6 mEq/L code = 6833753765) THB LORENA (test code = 8.2 g/dL 13.5-18.0 LL 8008680317) %O2HB LORENA (test code = 22.2 % 52.0-63.0 L 2745706208) %COHB LORENA (test code = 0.1 % 0.0-1.5 0447359410) %METHB LORENA (test code = 1.5 % 0.4-1.5 3720769449) VOL%O2 LORENA (test code = 2.6 % 6.0-12.0 L 6532070683) NA (test code = 132 mmol/L 135-145 L 7186150818) K+ (test code = 4.7 mmol/L 3.5-5.0 7057943776) AC CA IONZ (test code = 5.10 mg/dL 4.50-5.30 4176644677) GLUCOSE (test code = 153 mg/dL 70-110 H 8590473346) LACTIC ACID (test code 1.54 mmol/L 0.50-2.20 = 2346966751) Lab Interpretation Abnormal (test code = 07051-0) [facility]-10 20:33:33 Test Item Value Reference Range Interpretation Comments POCT GLU (test code = 0839343793) 137 mg/dL 70-110 H Lab Interpretation (test code = Abnormal 12224-4) [facility]AL [id number] 20:24:02 Test Item Value Reference Range Interpretation Comments NT-proBNP (test code = 79651 pg/mL <=450 H 4645540087) MALIK (test code = MALIK) Biotin has been reported to cause a negative bias, interpret results relative to patient's use of biotin. Lab Interpretation (test Abnormal code = 92337-7) [facility]. METABOLIC PANEL (63356)2022-10-10 20:18:35 Test Item Value Reference Range Interpretation Comments NA (test code = 136 mmol/L 135-145 4285876654) K (test code = 4.8 mmol/L 3.5-5.0 9609876092) CL (test code = 94 mmol/L 98-108 L 9717125995) CO2 TOTAL (test code = 33 mmol/L 23-31 H 3675331970) AGAP (test code = 9 2-16 7378432201) BUN (test code = 34 mg/dL 7-23 H 8736005763) GLUCOSE (test code = 62 mg/dL 70-110 L 0434620639) CREATININE (test code = 3.14 mg/dL 0.60-1.25 H 0860174505) TOTAL BILI (test code = 0.9 mg/dL 0.1-1.3 5000943849) CALCIUM (test code = 9.4 mg/dL 8.6-10.6 5540630448) T PROTEIN (test code = 6.6 g/dL 6.3-8.2 2897526542) ALBUMIN (test code = 3.6 g/dL 3.5-5.0 0531942945) ALK PHOS (test code = 334 U/L 34-122 H 9854508336) ALTv (test code = 38 U/L 5-50 1742-6) AST(SGOT) (test code = 38 U/L 13-40 3269397737) eGFR (test code = 19.3 mL/min/1.73m2 9217027138) MALIK (test code = MALIK) Association of [...] tests). Lab Interpretation Abnormal (test code = 24507-9) [facility]-10 19:48:15 Test Item Value Reference Range Interpretation Comments POCT GLU (test code = 4987469294) 50 mg/dL 70-110 LL Lab Interpretation (test code = Abnormal 12148-5) [facility] [id number] 19:44:14 Test Item Value Reference Range Interpretation Comments TROPONIN I (test code = 0.060 ng/mL <=0.034 H 3063163965) MALIK (test code = MALIK) Reference (Normal) [...] biotin. Lab Interpretation Abnormal (test code = 00548-1) [facility] WITH [id number] 19:23:50 Test Item Value Reference Range Interpretation [...] RDW-SD (test code = 46.5 fL 38.5-51.6 25254-3) RDW-CV (test code = 14.4 % 12.1-15.4 788-0) PLT (test code = 131 See_Comment L [Automated 777-3) message] The sy stem which generated this result transmitted reference range : 150 - 328 10*3/ ?L. The reference r samantha was not used to interpret this result as normal/abnormal . MPV (test code = 9.2 fL 9.8-13.0 L 69810-4) NRBC/100 WBC (test 0.0 See_Comment [Automat ed code = 8188262993) message] The system which generated this result transmitted reference range : 0.0 - 10.0 /100 WBCs. The refer ence range was not u sed to interpret th is result as normal/abnormal . NRBC x10^3 (test code See_Comment [Auto mated = 8182165800) message] The s ystem which generated this result transmitted reference range : 10*3/?L. The reference range was not used to interpret this result as normal/abnormal . GRAN MAT (NEUT) % 80.2 % (test code = 770-8) IMM GRAN % (test code 0.50 % = 4676013843) LYMPH % (test code = 9.6 % 736-9) MONO % (test code = 8.8 % 5905-5) EOS % (test code = 0.4 % 713-8) BASO % (test code = 0.5 % 706-2) GRAN MAT x10^3(ANC) 6.02 10*3/uL 1.99-6.95 (test code = 4267433069) IMM GRAN x10^3 (test 0.04 10*3/uL 0.00-0.06 code = 8878423976) LYMPH x10^3 (test code 0.72 10*3/uL 1.09-3.23 L = 731-0) MONO x10^3 (test code 0.66 10*3/uL 0.36-1.02 = 742-7) EOS x10^3 (test code = 0.03 10*3/uL 0.06-0.53 L 711-2) BASO x10^3 (test code 0.04 10*3/uL 0.01-0.09 = 704-7) Lab Interpretation Abnormal (test code = 61342-7) [facility]10 18:59:49 Test Item Value Reference Range Interpretation Comments POCT GLU (test code = 5082418147) 80 mg/dL 70-110 Lab Interpretation (test code = Normal 83976-1) [facility] CenterPalk[facility] [id number] 18:35:00 Test Item Value Reference Range Interpretation Comments Antibody Scrn (test Negative (01/02/22 1:35 code = Antibody Scrn) PM) [facility] [id number] 18:35:00 Test Item Value Reference Range Interpretation Comments ABO/Rh (test code = ABO/Rh) AB POS [facility] [id number] 18:35:00 Test Item Value Reference Range Interpretation Comments Antibody Scrn (test Negative (01/02/22 1:35 code = Antibody Scrn) PM) [facility] [employer] [id number] 18:35:00 Test Item Value Reference Range Interpretation Comments ABO/Rh (test code = ABO/Rh) AB POS [facility] [employer] [id number] 18:35:00 Test Item Value Reference Range Interpretation Comments Antibody Scrn (test Negative (01/02/22 1:35 code = Antibody Scrn) PM) [facility] [employer] [id number] 18:35:00 Test Item Value Reference Range Interpretation Comments ABO/Rh (test code = ABO/Rh) AB POS [facility] [employer] [id number] 18:35:00 Test Item Value Reference Range Interpretation Comments Antibody Scrn (test Negative (01/02/22 1:35 code = Antibody Scrn) PM) [facility] [employer] [id number] 18:35:00 Test Item Value Reference Range Interpretation Comments ABO/Rh (test code = ABO/Rh) AB POS [facility] [employer] [id number] 18:35:00 Test Item Value Reference Range Interpretation Comments Antibody Scrn (test Negative (01/02/22 1:35 code = Antibody Scrn) PM) [facility] [employer] [id number] 18:35:00 Test Item Value Reference Range Interpretation Comments ABO/Rh (test code = ABO/Rh) AB POS [facility] [employer] [id number] 18:35:00 Test Item Value Reference Range Interpretation Comments Antibody Scrn (test Negative (01/02/22 1:35 code = Antibody Scrn) PM) [facility] [employer] [id number] 18:35:00 Test Item Value Reference Range Interpretation Comments ABO/Rh (test code = ABO/Rh) AB POS [employer] [id number] 18:13:00 Test Item Value Reference Range Interpretation Comments HS Troponin I (test code = HS Troponin 156 I) [facility] [id number] 18:13:00 Test Item Value Reference Range Interpretation Comments Glucose Lvl (test code = Glucose Lvl) 237 70-99 [facility] [id number] 18:13:00 Test Item Value Reference Range Interpretation Comments BUN (test code = BUN) 46 7-22 [facility] [id number] 18:13:00 Test Item Value Reference Range Interpretation Comments Creatinine Lvl (test code = Creatinine 5.92 0.50-1.40 Lvl) [facility]2022-08-05 18:13:00 Test Item Value Reference Range Interpretation Comments Sodium Lvl (test code = Sodium Lvl) 134 135-145 [facility] [id number] 18:13:00 Test Item Value Reference Range Interpretation Comments Potassium Lvl (test code = Potassium 4.4 3.5-5.1 Lvl) [facility] [place] [id number] 18:13:00 Test Item Value Reference Range Interpretation Comments Chloride Lvl (test code = Chloride Lvl) 98 95-109 [facility] [id number] 18:13:00 Test Item Value Reference Range Interpretation Comments HS Troponin I (test code = HS Troponin 156 I) [facility] [id number] 18:13:00 Test Item Value Reference Range Interpretation Comments Glucose Lvl (test code = Glucose Lvl) 237 70-99 [facility] [id number] 18:13:00 Test Item Value Reference Range Interpretation Comments BUN (test code = BUN) 46 7-22 [facility] [place] [id number] 18:13:00 Test Item Value Reference Range Interpretation Comments Creatinine Lvl (test code = Creatinine 5.92 0.50-1.40 Lvl) [facility] [facility] [place] [id number] 18:13:00 Test Item Value Reference Range Interpretation Comments Sodium Lvl (test code = Sodium Lvl) 134 135-145 [facility] [place] [id number] 18:13:00 Test Item Value Reference Range Interpretation Comments Potassium Lvl (test code = Potassium 4.4 3.5-5.1 Lvl) [facility] [place] [id number] 18:13:00 Test Item Value Reference Range Interpretation Comments Chloride Lvl (test code = Chloride Lvl) 98 95-109 [facility] [id number] 18:13:00 Test Item Value Reference Range Interpretation Comments CO2 (test code = CO2) 29 24-32 [facility] [place] [id number] 18:13:00 Test Item Value Reference Range Interpretation Comments Calcium Lvl (test code = Calcium Lvl) 9.2 8.5-10.5 [facility] [place] [id number] 18:13:00 Test Item Value Reference Range Interpretation Comments Total Protein (test code = Total 6.6 6.4-8.4 Protein) [place] [address]-08-05 18:13:00 Test Item Value Reference Range Interpretation Comments CO2 (test code = CO2) 29 24-32 [facility] [place] [id number] 18:13:00 Test Item Value Reference Range Interpretation Comments Albumin Lvl (test code = Albumin Lvl) 3.1 3.5-5.0 [facility] [place] [id number] 18:13:00 Test Item Value Reference Range Interpretation Comments ALT (test code = ALT) 36 See_Comment [Auto mated message] The system which ge nerated this result transmit swathi reference range : <=65. The reference range was not used to interpr et this result as deny l/abnormal. [facility] [place] [id number] 18:13:00 Test Item Value Reference Range Interpretation Comments AST (test code = AST) 28 See_Comment [Auto mated message] The system which ge nerated this result transmit swathi reference range : <=37. The reference range was not used to interpr et this result as deny l/abnormal. [facility] IROCKE [id number] 18:13:00 Test Item Value Reference Range Interpretation Comments Alk Phos (test code = Alk Phos) 231 39-136 [facility] [place] [id number] 18:13:00 Test Item Value Reference Range Interpretation Comments Bili Total (test code = Bili Total) 1.0 0.2-1.3 [facility] [place] [id number] 18:13:00 Test Item Value Reference Range Interpretation Comments AGAP (test code = AGAP) 11.4 10.0-20.0 [facility] IROCKE [id number] 18:13:00 Test Item Value Reference Range Interpretation Comments B/C Ratio (test code = B/C Ratio) 8 1 6-25 [facility] [place] [id number] 18:13:00 Test Item Value Reference Range Interpretation Comments Globulin (test code = Globulin) 3.5 2.7-4.2 [facility] IROCKE [id number] 18:13:00 Test Item Value Reference Range Interpretation Comments A/G Ratio (test code = A/G Ratio) 0.9 1 0.7-1.6 [place] 378062-08-05 18:13:00 Test Item Value Reference Range Interpretation Comments eGFR (test code = eGFR) 9 [facility]2022-08-05 18:13:00 Test Item Value Reference Range Interpretation Comments Calcium Lvl (test code = Calcium Lvl) 9.2 8.5-10.5 [place] [address]-08-05 18:13:00 Test Item Value Reference Range Interpretation Comments WBC (test code = WBC) 4.8 3.7-10.4 [place] 247202-08-05 18:13:00 Test Item Value Reference Range Interpretation Comments RBC (test code = RBC) 1.93 4.70-6.10 [place] 247202-08-05 18:13:00 Test Item Value Reference Range Interpretation Comments Hgb (test code = Hgb) 7.2 14.0-18.0 [place] [address]-08-05 18:13:00 Test Item Value Reference Range Interpretation Comments Hct (test code = Hct) 21.2 42.0-54.0 [place] [address]-08-05 18:13:00 Test Item Value Reference Range Interpretation Comments MCV (test code = MCV) 110.1 80.0-94.0 [place] [address]-08-05 18:13:00 Test Item Value Reference Range Interpretation Comments MCH (test code = MCH) 37.1 pg 27.0-31.0 [place] [address]-08-05 18:13:00 Test Item Value Reference Range Interpretation Comments MCHC (test code = MCHC) 33.7 32.0-36.0 [place] [address]-08-05 18:13:00 Test Item Value Reference Range Interpretation Comments RDW (test code = RDW) 25.8 11.5-14.5 [place] 247202-08-05 18:13:00 Test Item Value Reference Range Interpretation Comments Platelet (test code = Platelet) 216 133-450 [place] 247202-08-05 18:13:00 Test Item Value Reference Range Interpretation Comments MPV (test code = MPV) 8.2 7.4-10.4 [facility]2022-08-05 18:13:00 Test Item Value Reference Range Interpretation Comments Total Protein (test code = Total 6.6 6.4-8.4 Protein) [address]08-05 18:13:00 Test Item Value Reference Range Interpretation Comments PT (test code = PT) 16.9 s 12.0-14.7 [place] [address]-08-05 18:13:00 Test Item Value Reference Range Interpretation Comments INR (test code = INR) 1.39 1 0.85-1.17 [place] [address]-08-05 18:13:00 Test Item Value Reference Range Interpretation Comments PTT (test code = PTT) 35.0 s 22.9-35.8 [address]08-05 18:13:00 Test Item Value Reference Range Interpretation Comments Plt Morph (test code = Normal (01/02/22 1:13 PM) Plt Morph) [address]08-05 18:13:00 Test Item Value Reference Range Interpretation Comments Segs (test code = Segs) 76.4 45.0-75.0 [place] [address]-08-05 18:13:00 Test Item Value Reference Range Interpretation Comments Lymphocytes (test code = Lymphocytes) 14.6 20.0-40.0 [place] [address]-08-05 18:13:00 Test Item Value Reference Range Interpretation Comments Monocytes (test code = Monocytes) 7.5 2.0-12.0 [address]08-05 18:13:00 Test Item Value Reference Range Interpretation Comments Eosinophils (test code = 0.6 See_Comment [A utomated message] The Eosinophils) system which ge nerated this result tra nsmitted reference range : <=4.0. The reference r samantha was not used to int erpret this result as normal/abnormal . [address]08-05 18:13:00 Test Item Value Reference Range Interpretation Comments Basophils (test code = 0.9 See_Comment [Aut omated message] The Basophils) system which ge nerated this result tra nsmitted reference range : <=1.0. The reference r samantha was not used to int erpret this result as normal/abnormal . [address]08-05 18:13:00 Test Item Value Reference Range Interpretation Comments Neutrophils # (test code = Neutrophils 3.7 1.5-8.1 #) [place] [address]-08-05 18:13:00 Test Item Value Reference Range Interpretation Comments Albumin Lvl (test code = Albumin Lvl) 3.1 3.5-5.0 [address]08-05 18:13:00 Test Item Value Reference Range Interpretation Comments Lymphocytes # (test code = Lymphocytes 0.7 1.0-5.5 #) [address]08-05 18:13:00 Test Item Value Reference Range Interpretation Comments Monocytes # (test code 0.4 See_Comment [Aut omated message] The = Monocytes #) system which generated this result tra nsmitted reference range : <=0.8. The reference r samantha was not used to int erpret this result as normal/abnormal . [address]08-05 18:13:00 Test Item Value Reference Range Interpretation Comments Anisocyte (test code = 2+ *ABN*(01/02/22 1:13 Anisocyte) PM) [address]08-05 18:13:00 Test Item Value Reference Range Interpretation Comments Macrocyte (test code = 2+ *ABN*(01/02/22 1:13 Macrocyte) PM) [address]08-05 18:13:00 Test Item Value Reference Range Interpretation Comments ALT (test code = ALT) 36 See_Comment [Auto mated message] The system which ge nerated this result transmit swathi reference range : <=65. The reference range was not used to interpr et this result as deny l/abnormal. [address]08-05 18:13:00 Test Item Value Reference Range Interpretation Comments AST (test code = AST) 28 See_Comment [Auto mated message] The system which ge nerated this result transmit swathi reference range : <=37. The reference range was not used to interpr et this result as deny l/abnormal. [address]08-05 18:13:00 Test Item Value Reference Range Interpretation Comments Alk Phos (test code = Alk Phos) 231 39-136 [place] [address]-08-05 18:13:00 Test Item Value Reference Range Interpretation Comments Bili Total (test code = Bili Total) 1.0 0.2-1.3 [place] 378062-08-05 18:13:00 Test Item Value Reference Range Interpretation Comments AGAP (test code = AGAP) 11.4 10.0-20.0 [place] [address]-08-05 18:13:00 Test Item Value Reference Range Interpretation Comments B/C Ratio (test code = B/C Ratio) 8 1 6-25 [address]08-05 18:13:00 Test Item Value Reference Range Interpretation Comments Globulin (test code = Globulin) 3.5 2.7-4.2 [place] 378062-08-05 18:13:00 Test Item Value Reference Range Interpretation Comments A/G Ratio (test code = A/G Ratio) 0.9 1 0.7-1.6 [address]08-05 18:13:00 Test Item Value Reference Range Interpretation Comments eGFR (test code = eGFR) 9 [place] [address]-08-05 18:13:00 Test Item Value Reference Range Interpretation Comments WBC (test code = WBC) 4.8 3.7-10.4 [place] [address]-08-05 18:13:00 Test Item Value Reference Range Interpretation Comments RBC (test code = RBC) 1.93 4.70-6.10 [place] [address]-08-05 18:13:00 Test Item Value Reference Range Interpretation Comments Hgb (test code = Hgb) 7.2 14.0-18.0 [place] [address]-08-05 18:13:00 Test Item Value Reference Range Interpretation Comments Hct (test code = Hct) 21.2 42.0-54.0 [place] [address]-08-05 18:13:00 Test Item Value Reference Range Interpretation Comments MCV (test code = MCV) 110.1 80.0-94.0 [place] [address]-08-05 18:13:00 Test Item Value Reference Range Interpretation Comments MCH (test code = MCH) 37.1 pg 27.0-31.0 [place] [address]-08-05 18:13:00 Test Item Value Reference Range Interpretation Comments MCHC (test code = MCHC) 33.7 32.0-36.0 [place] [address]-08-05 18:13:00 Test Item Value Reference Range Interpretation Comments RDW (test code = RDW) 25.8 11.5-14.5 [place] 247202-08-05 18:13:00 Test Item Value Reference Range Interpretation Comments Platelet (test code = Platelet) 216 133-450 [place] 247202-08-05 18:13:00 Test Item Value Reference Range Interpretation Comments MPV (test code = MPV) 8.2 7.4-10.4 [place] [address]-08-05 18:13:00 Test Item Value Reference Range Interpretation Comments PT (test code = PT) 16.9 s 12.0-14.7 [place] [address]-08-05 18:13:00 Test Item Value Reference Range Interpretation Comments INR (test code = INR) 1.39 1 0.85-1.17 [facility]XnpywhaSFPZJKAUND1207-48-40 18:13:00 Test Item Value Reference Range Interpretation Comments PTT (test code = PTT) 35.0 s 22.9-35.8 [place] [address]-08-05 18:13:00 Test Item Value Reference Range Interpretation Comments Plt Morph (test code = Normal (01/02/22 1:13 PM) Plt Morph) [facility] La[id number] 18:13:00 Test Item Value Reference Range Interpretation Comments Segs (test code = Segs) 76.4 45.0-75.0 [place] 247202-08-05 18:13:00 Test Item Value Reference Range Interpretation Comments Lymphocytes (test code = Lymphocytes) 14.6 20.0-40.0 [place] [address]-08-05 18:13:00 Test Item Value Reference Range Interpretation Comments Monocytes (test code = Monocytes) 7.5 2.0-12.0 [place] [address]-08-05 18:13:00 Test Item Value Reference Range Interpretation Comments Eosinophils (test code = 0.6 See_Comment [A utomated message] The Eosinophils) system which ge nerated this result tra nsmitted reference range : <=4.0. The reference r samantha was not used to int erpret this result as normal/abnormal . [facility] LancasterXkmcmdgGAEHPEKMPG1596-85-71 18:13:00 Test Item Value Reference Range Interpretation Comments Basophils (test code = 0.9 See_Comment [Aut omated message] The Basophils) system which ge nerated this result tra nsmitted reference range : <=1.0. The reference r samantha was not used to int erpret this result as normal/abnormal . [facility] LancasterGrjvcjzVJXPLDLUYG5820-83-86 18:13:00 Test Item Value Reference Range Interpretation Comments Neutrophils # (test code = Neutrophils 3.7 1.5-8.1 #) [facility] LancasterJcrozowHIVGUGYSTN5116-64-04 18:13:00 Test Item Value Reference Range Interpretation Comments Lymphocytes # (test code = Lymphocytes 0.7 1.0-5.5 #) [facility] LancasterEyuuitoIFCMYDTWBC0983-26-58 18:13:00 Test Item Value Reference Range Interpretation Comments Monocytes # (test code 0.4 See_Comment [Aut omated message] The = Monocytes #) system which generated this result tra nsmitted reference range : <=0.8. The reference r samantha was not used to int erpret this result as normal/abnormal . [facility] LancasterVmsjyaqQDSVSVKRVT0608-11-75 18:13:00 Test Item Value Reference Range Interpretation Comments Anisocyte (test code = 2+ *ABN*(01/02/22 1:13 Anisocyte) PM) [facility] LancasterRapcmkqCFIIVISVVL7867-00-12 18:13:00 Test Item Value Reference Range Interpretation Comments Macrocyte (test code = 2+ *ABN*(01/02/22 1:13 Macrocyte) PM) [facility] [id number] 18:13:00 Test Item Value Reference Range Interpretation Comments HS Troponin I (test code = HS Troponin 156 I) [facility] [id number] 18:13:00 Test Item Value Reference Range Interpretation Comments Glucose Lvl (test code = Glucose Lvl) 237 70-99 [facility]2022-08-05 18:13:00 Test Item Value Reference Range Interpretation Comments BUN (test code = BUN) 46 7-22 [facility]2022-08-05 18:13:00 Test Item Value Reference Range Interpretation Comments Creatinine Lvl (test code = Creatinine 5.92 0.50-1.40 Lvl) [address]08-05 18:13:00 Test Item Value Reference Range Interpretation Comments Sodium Lvl (test code = Sodium Lvl) 134 135-145 [place] 378062-08-05 18:13:00 Test Item Value Reference Range Interpretation Comments Potassium Lvl (test code = Potassium 4.4 3.5-5.1 Lvl) [address]08-05 18:13:00 Test Item Value Reference Range Interpretation Comments Chloride Lvl (test code = Chloride Lvl) 98 95-109 [address]08-05 18:13:00 Test Item Value Reference Range Interpretation Comments CO2 (test code = CO2) 29 24-32 [address]08-05 18:13:00 Test Item Value Reference Range Interpretation Comments Calcium Lvl (test code = Calcium Lvl) 9.2 8.5-10.5 [place] [address]-08-05 18:13:00 Test Item Value Reference Range Interpretation Comments Total Protein (test code = Total 6.6 6.4-8.4 Protein) [address]08-05 18:13:00 Test Item Value Reference Range Interpretation Comments Albumin Lvl (test code = Albumin Lvl) 3.1 3.5-5.0 [place] [address]-08-05 18:13:00 Test Item Value Reference Range Interpretation Comments ALT (test code = ALT) 36 See_Comment [Auto mated message] The system which ge nerated this result transmit swathi reference range : <=65. The reference range was not used to interpr et this result as deny l/abnormal. [facility] [id number] 18:13:00 Test Item Value Reference Range Interpretation Comments AST (test code = AST) 28 See_Comment [Auto mated message] The system which ge nerated this result transmit swathi reference range : <=37. The reference range was not used to interpr et this result as deny l/abnormal. [address]08-05 18:13:00 Test Item Value Reference Range Interpretation Comments Alk Phos (test code = Alk Phos) 231 39-136 [facility] [id number] 18:13:00 Test Item Value Reference Range Interpretation Comments Bili Total (test code = Bili Total) 1.0 0.2-1.3 [address]08-05 18:13:00 Test Item Value Reference Range Interpretation Comments AGAP (test code = AGAP) 11.4 10.0-20.0 [place] 378062-08-05 18:13:00 Test Item Value Reference Range Interpretation Comments B/C Ratio (test code = B/C Ratio) 8 1 6-25 [address]08-05 18:13:00 Test Item Value Reference Range Interpretation Comments Globulin (test code = Globulin) 3.5 2.7-4.2 [place] 378062-08-05 18:13:00 Test Item Value Reference Range Interpretation Comments A/G Ratio (test code = A/G Ratio) 0.9 1 0.7-1.6 [address]08-05 18:13:00 Test Item Value Reference Range Interpretation Comments eGFR (test code = eGFR) 9 [place] [address]-08-05 18:13:00 Test Item Value Reference Range Interpretation Comments WBC (test code = WBC) 4.8 3.7-10.4 [place] [address]-08-05 18:13:00 Test Item Value Reference Range Interpretation Comments RBC (test code = RBC) 1.93 4.70-6.10 [place] [address]-08-05 18:13:00 Test Item Value Reference Range Interpretation Comments Hgb (test code = Hgb) 7.2 14.0-18.0 [address]08-05 18:13:00 Test Item Value Reference Range Interpretation Comments Hct (test code = Hct) 21.2 42.0-54.0 [address]08-05 18:13:00 Test Item Value Reference Range Interpretation Comments MCV (test code = MCV) 110.1 80.0-94.0 [place] [address]-08-05 18:13:00 Test Item Value Reference Range Interpretation Comments MCH (test code = MCH) 37.1 pg 27.0-31.0 [place] [address]-08-05 18:13:00 Test Item Value Reference Range Interpretation Comments MCHC (test code = MCHC) 33.7 32.0-36.0 [place] [address]-08-05 18:13:00 Test Item Value Reference Range Interpretation Comments RDW (test code = RDW) 25.8 11.5-14.5 [place] [address]-08-05 18:13:00 Test Item Value Reference Range Interpretation Comments Platelet (test code = Platelet) 216 133-450 [facility] LancasterDruposeZMIAXLDTVF5335-63-56 18:13:00 Test Item Value Reference Range Interpretation Comments MPV (test code = MPV) 8.2 7.4-10.4 [place] [address]-08-05 18:13:00 Test Item Value Reference Range Interpretation Comments PT (test code = PT) 16.9 s 12.0-14.7 [place] [address]-08-05 18:13:00 Test Item Value Reference Range Interpretation Comments INR (test code = INR) 1.39 1 0.85-1.17 [place] [address]-08-05 18:13:00 Test Item Value Reference Range Interpretation Comments PTT (test code = PTT) 35.0 s 22.9-35.8 [place] [address]-08-05 18:13:00 Test Item Value Reference Range Interpretation Comments Plt Morph (test code = Normal (01/02/22 1:13 PM) Plt Morph) [place] [address]-08-05 18:13:00 Test Item Value Reference Range Interpretation Comments Segs (test code = Segs) 76.4 45.0-75.0 [place] [address]-08-05 18:13:00 Test Item Value Reference Range Interpretation Comments Lymphocytes (test code = Lymphocytes) 14.6 20.0-40.0 [place] [address]-08-05 18:13:00 Test Item Value Reference Range Interpretation Comments Monocytes (test code = Monocytes) 7.5 2.0-12.0 [place] [address]-08-05 18:13:00 Test Item Value Reference Range Interpretation Comments Eosinophils (test code = 0.6 See_Comment [A utomated message] The Eosinophils) system which ge nerated this result tra nsmitted reference range : <=4.0. The reference r samantha was not used to int erpret this result as normal/abnormal . [facility]esl[facility]ABLCVVJUNW9172-[facility] 18:13:00 Test Item Value Reference Range Interpretation Comments Basophils (test code = 0.9 See_Comment [Aut omated message] The Basophils) system which ge nerated this result tra nsmitted reference range : <=1.0. The reference r samantha was not used to int erpret this result as normal/abnormal . [facility] LancasterIxwqxtqJJGBPVMZIE6323-63-30 18:13:00 Test Item Value Reference Range Interpretation Comments Neutrophils # (test code = Neutrophils 3.7 1.5-8.1 #) [facility] LancasterNawzpkiWUQLVBNOUM0388-74-86 18:13:00 Test Item Value Reference Range Interpretation Comments Lymphocytes # (test code = Lymphocytes 0.7 1.0-5.5 #) [facility] LancasterOhipjsgEEOMAPATYE0757-25-83 18:13:00 Test Item Value Reference Range Interpretation Comments Monocytes # (test code 0.4 See_Comment [Aut omated message] The = Monocytes #) system which generated this result tra nsmitted reference range : <=0.8. The reference r samantha was not used to int erpret this result as normal/abnormal . [facility] LancasterYzxjlbcGBZUISFTPC3369-34-74 18:13:00 Test Item Value Reference Range Interpretation Comments Anisocyte (test code = 2+ *ABN*(01/02/22 1:13 Anisocyte) PM) [facility] LancasterGwkrkdnGNVPMAZEMD5299-28-09 18:13:00 Test Item Value Reference Range Interpretation Comments Macrocyte (test code = 2+ *ABN*(01/02/22 1:13 Macrocyte) PM) [facility] EJLKIXM6772-43-28 18:13:00 Test Item Value Reference Range Interpretation Comments HS Troponin I (test code = HS Troponin 156 I) [facility] [id number] 18:13:00 Test Item Value Reference Range Interpretation Comments Glucose Lvl (test code = Glucose Lvl) 237 70-99 [facility] BCCPX2242-97-07 18:13:00 Test Item Value Reference Range Interpretation Comments BUN (test code = BUN) 46 7-22 [facility] [id number] 18:13:00 Test Item Value Reference Range Interpretation Comments Creatinine Lvl (test code = Creatinine 5.92 0.50-1.40 Lvl) [address]08-05 18:13:00 Test Item Value Reference Range Interpretation Comments Sodium Lvl (test code = Sodium Lvl) 134 135-145 [place] [address]-08-05 18:13:00 Test Item Value Reference Range Interpretation Comments Potassium Lvl (test code = Potassium 4.4 3.5-5.1 Lvl) [address]08-05 18:13:00 Test Item Value Reference Range Interpretation Comments Chloride Lvl (test code = Chloride Lvl) 98 95-109 [address]08-05 18:13:00 Test Item Value Reference Range Interpretation Comments CO2 (test code = CO2) 29 24-32 [address]08-05 18:13:00 Test Item Value Reference Range Interpretation Comments Calcium Lvl (test code = Calcium Lvl) 9.2 8.5-10.5 [address]08-05 18:13:00 Test Item Value Reference Range Interpretation Comments Total Protein (test code = Total 6.6 6.4-8.4 Protein) [address]08-05 18:13:00 Test Item Value Reference Range Interpretation Comments Albumin Lvl (test code = Albumin Lvl) 3.1 3.5-5.0 [address]08-05 18:13:00 Test Item Value Reference Range Interpretation Comments ALT (test code = ALT) 36 See_Comment [Auto mated message] The system which ge nerated this result transmit swathi reference range : <=65. The reference range was not used to interpr et this result as deny l/abnormal. [address]08-05 18:13:00 Test Item Value Reference Range Interpretation Comments AST (test code = AST) 28 See_Comment [Auto mated message] The system which ge nerated this result transmit swathi reference range : <=37. The reference range was not used to interpr et this result as deny l/abnormal. [address]08-05 18:13:00 Test Item Value Reference Range Interpretation Comments Alk Phos (test code = Alk Phos) 231 39-136 [place] [address]-08-05 18:13:00 Test Item Value Reference Range Interpretation Comments Bili Total (test code = Bili Total) 1.0 0.2-1.3 [address]08-05 18:13:00 Test Item Value Reference Range Interpretation Comments AGAP (test code = AGAP) 11.4 10.0-20.0 [address]08-05 18:13:00 Test Item Value Reference Range Interpretation Comments B/C Ratio (test code = B/C Ratio) 8 1 6-25 [address]08-05 18:13:00 Test Item Value Reference Range Interpretation Comments Globulin (test code = Globulin) 3.5 2.7-4.2 [address]08-05 18:13:00 Test Item Value Reference Range Interpretation Comments A/G Ratio (test code = A/G Ratio) 0.9 1 0.7-1.6 [address]08-05 18:13:00 Test Item Value Reference Range Interpretation Comments eGFR (test code = eGFR) 9 [place] [address]-08-05 18:13:00 Test Item Value Reference Range Interpretation Comments WBC (test code = WBC) 4.8 3.7-10.4 [address]08-05 18:13:00 Test Item Value Reference Range Interpretation Comments RBC (test code = RBC) 1.93 4.70-6.10 [address]08-05 18:13:00 Test Item Value Reference Range Interpretation Comments Hgb (test code = Hgb) 7.2 14.0-18.0 [address]08-05 18:13:00 Test Item Value Reference Range Interpretation Comments Hct (test code = Hct) 21.2 42.0-54.[address]08-05 18:13:00 Test Item Value Reference Range Interpretation Comments MCV (test code = MCV) 110.1 80.0-94.[address]08-05 18:13:00 Test Item Value Reference Range Interpretation Comments MCH (test code = MCH) 37.1 pg 27.0-31.0 [place] [address]-08-05 18:13:00 Test Item Value Reference Range Interpretation Comments MCHC (test code = MCHC) 33.7 32.0-36.0 [place] 247202-08-05 18:13:00 Test Item Value Reference Range Interpretation Comments RDW (test code = RDW) 25.8 11.5-14.5 [place] 247202-08-05 18:13:00 Test Item Value Reference Range Interpretation Comments Platelet (test code = Platelet) 216 133-450 [facility]ZouaxtbGIKBFZZDFL9237-94-49 18:13:00 Test Item Value Reference Range Interpretation Comments MPV (test code = MPV) 8.2 7.4-10.4 [place] 247202-08-05 18:13:00 Test Item Value Reference Range Interpretation Comments PT (test code = PT) 16.9 s 12.0-14.7 [place] 247202-08-05 18:13:00 Test Item Value Reference Range Interpretation Comments INR (test code = INR) 1.39 1 0.85-1.17 [facility] LancasterZsffhpcDGCNKFECEF9616-24-85 18:13:00 Test Item Value Reference Range Interpretation Comments PTT (test code = PTT) 35.0 s 22.9-35.8 [place] 247202-08-05 18:13:00 Test Item Value Reference Range Interpretation Comments Plt Morph (test code = Normal (01/02/22 1:13 PM) Plt Morph) [facility] LancasterSgpcsrmGXFPXQXCXC6008-76-69 18:13:00 Test Item Value Reference Range Interpretation Comments Segs (test code = Segs) 76.4 45.0-75.0 [facility] LancasterXypgzucVDQNIVCMES0551-88-90 18:13:00 Test Item Value Reference Range Interpretation Comments Lymphocytes (test code = Lymphocytes) 14.6 20.0-40.0 [place] [address]-08-05 18:13:00 Test Item Value Reference Range Interpretation Comments Monocytes (test code = Monocytes) 7.5 2.0-12.0 [place] [address]-08-05 18:13:00 Test Item Value Reference Range Interpretation Comments Eosinophils (test code = 0.6 See_Comment [A utomated message] The Eosinophils) system which ge nerated this result tra nsmitted reference range : <=4.0. The reference r samantha was not used to int erpret this result as normal/abnormal . [facility] LancasterRkhvgjsLGJJCVYVGO7912-60-95 18:13:00 Test Item Value Reference Range Interpretation Comments Basophils (test code = 0.9 See_Comment [Aut omated message] The Basophils) system which ge nerated this result tra nsmitted reference range : <=1.0. The reference r samantha was not used to int erpret this result as normal/abnormal . [facility] LancasterSgllkuzXSAXTRVKKS5689-36-51 18:13:00 Test Item Value Reference Range Interpretation Comments Neutrophils # (test code = Neutrophils 3.7 1.5-8.1 #) [facility] LancasterFggzcezPKAWNEAPEI7125-60-51 18:13:00 Test Item Value Reference Range Interpretation Comments Lymphocytes # (test code = Lymphocytes 0.7 1.0-5.5 #) [facility] LancasterAijojarUETSLPDGDW0845-75-15 18:13:00 Test Item Value Reference Range Interpretation Comments Monocytes # (test code 0.4 See_Comment [Aut omated message] The = Monocytes #) system which generated this result tra nsmitted reference range : <=0.8. The reference r samantha was not used to int erpret this result as normal/abnormal . [facility] LancasterAqdnrefUMLZHXUSGX3781-09-69 18:13:00 Test Item Value Reference Range Interpretation Comments Anisocyte (test code = 2+ *ABN*(01/02/22 1:13 Anisocyte) PM) [facility] LancasterSzeqpvjSGRJSFDVEY1889-39-88 18:13:00 Test Item Value Reference Range Interpretation Comments Macrocyte (test code = 2+ *ABN*(01/02/22 1:13 Macrocyte) PM) [facility] LMOKFJC2610-21-13 18:13:00 Test Item Value Reference Range Interpretation Comments HS Troponin I (test code = HS Troponin 156 I) [facility]2022-08-05 18:13:00 Test Item Value Reference Range Interpretation Comments Glucose Lvl (test code = Glucose Lvl) 237 70-99 [facility]2022-08-05 18:13:00 Test Item Value Reference Range Interpretation Comments BUN (test code = BUN) 46 7-22 [facility]2022-08-05 18:13:00 Test Item Value Reference Range Interpretation Comments Creatinine Lvl (test code = Creatinine 5.92 0.50-1.40 Lvl) [facility]2022-08-05 18:13:00 Test Item Value Reference Range Interpretation Comments Sodium Lvl (test code = Sodium Lvl) 134 135-145 [place] [address]-08-05 18:13:00 Test Item Value Reference Range Interpretation Comments Potassium Lvl (test code = Potassium 4.4 3.5-5.1 Lvl) [place] [address]-08-05 18:13:00 Test Item Value Reference Range Interpretation Comments Chloride Lvl (test code = Chloride Lvl) 98 95-109 [place] 378062-08-05 18:13:00 Test Item Value Reference Range Interpretation Comments CO2 (test code = CO2) 29 24-32 [address]08-05 18:13:00 Test Item Value Reference Range Interpretation Comments Calcium Lvl (test code = Calcium Lvl) 9.2 8.5-10.5 [place] 378062-08-05 18:13:00 Test Item Value Reference Range Interpretation Comments Total Protein (test code = Total 6.6 6.4-8.4 Protein) [address]08-05 18:13:00 Test Item Value Reference Range Interpretation Comments Albumin Lvl (test code = Albumin Lvl) 3.1 3.5-5.0 [place] 378062-08-05 18:13:00 Test Item Value Reference Range Interpretation Comments ALT (test code = ALT) 36 See_Comment [Auto mated message] The system which ge nerated this result transmit swathi reference range : <=65. The reference range was not used to interpr et this result as deny l/abnormal. [place] [address]-08-05 18:13:00 Test Item Value Reference Range Interpretation Comments AST (test code = AST) 28 See_Comment [Auto mated message] The system which ge nerated this result transmit swathi reference range : <=37. The reference range was not used to interpr et this result as deny l/abnormal. [place] [address]-08-05 18:13:00 Test Item Value Reference Range Interpretation Comments Alk Phos (test code = Alk Phos) 231 39-136 [place] [address]-08-05 18:13:00 Test Item Value Reference Range Interpretation Comments Bili Total (test code = Bili Total) 1.0 0.2-1.3 [place] [address]-08-05 18:13:00 Test Item Value Reference Range Interpretation Comments AGAP (test code = AGAP) 11.4 10.0-20.0 [place] [address]-08-05 18:13:00 Test Item Value Reference Range Interpretation Comments B/C Ratio (test code = B/C Ratio) 8 1 6-[address]08-05 18:13:00 Test Item Value Reference Range Interpretation Comments Globulin (test code = Globulin) 3.5 2.7-4.2 [place] [address]-08-05 18:13:00 Test Item Value Reference Range Interpretation Comments A/G Ratio (test code = A/G Ratio) 0.9 1 0.7-1.6 [place] [address]-08-05 18:13:00 Test Item Value Reference Range Interpretation Comments eGFR (test code = eGFR) 9 [place] 247202-08-05 18:13:00 Test Item Value Reference Range Interpretation Comments WBC (test code = WBC) 4.8 3.7-10.4 [place] [address]-08-05 18:13:00 Test Item Value Reference Range Interpretation Comments RBC (test code = RBC) 1.93 4.70-6.10 [place] [address]-08-05 18:13:00 Test Item Value Reference Range Interpretation Comments Hgb (test code = Hgb) 7.2 14.0-18.0 [place] [address]-08-05 18:13:00 Test Item Value Reference Range Interpretation Comments Hct (test code = Hct) 21.2 42.0-54.0 [place] [address]-08-05 18:13:00 Test Item Value Reference Range Interpretation Comments MCV (test code = MCV) 110.1 80.0-94.0 [place] [address]-08-05 18:13:00 Test Item Value Reference Range Interpretation Comments MCH (test code = MCH) 37.1 pg 27.0-31.0 [place] [address]-08-05 18:13:00 Test Item Value Reference Range Interpretation Comments MCHC (test code = MCHC) 33.7 32.0-36.0 [place] [address]-08-05 18:13:00 Test Item Value Reference Range Interpretation Comments RDW (test code = RDW) 25.8 11.5-14.5 [place] [address]-08-05 18:13:00 Test Item Value Reference Range Interpretation Comments Platelet (test code = Platelet) 216 133-450 [place] 247202-08-05 18:13:00 Test Item Value Reference Range Interpretation Comments MPV (test code = MPV) 8.2 7.4-10.4 [place] [address]-08-05 18:13:00 Test Item Value Reference Range Interpretation Comments PT (test code = PT) 16.9 s 12.0-14.7 [place] [address]-08-05 18:13:00 Test Item Value Reference Range Interpretation Comments INR (test code = INR) 1.39 1 0.85-1.17 [place] [address]-08-05 18:13:00 Test Item Value Reference Range Interpretation Comments PTT (test code = PTT) 35.0 s 22.9-35.8 [place] 247202-08-05 18:13:00 Test Item Value Reference Range Interpretation Comments Plt Morph (test code = Normal (01/02/22 1:13 PM) Plt Morph) [facility] LancasterQrygfreSPUZQSXPTM6161-43-81 18:13:00 Test Item Value Reference Range Interpretation Comments Segs (test code = Segs) 76.4 45.0-75.0 [place] [address]-08-05 18:13:00 Test Item Value Reference Range Interpretation Comments Lymphocytes (test code = Lymphocytes) 14.6 20.0-40.0 [place] 247202-08-05 18:13:00 Test Item Value Reference Range Interpretation Comments Monocytes (test code = Monocytes) 7.5 2.0-12.0 [place] [address]-08-05 18:13:00 Test Item Value Reference Range Interpretation Comments Eosinophils (test code = 0.6 See_Comment [A utomated message] The Eosinophils) system which ge nerated this result tra nsmitted reference range : <=4.0. The reference r samantha was not used to int erpret this result as normal/abnormal . [facility] LancasterUxtwqrbNYVZOIPZDP5805-90-52 18:13:00 Test Item Value Reference Range Interpretation Comments Basophils (test code = 0.9 See_Comment [Aut omated message] The Basophils) system which ge nerated this result tra nsmitted reference range : <=1.0. The reference r samantha was not used to int erpret this result as normal/abnormal . [facility] LancasterNmhoastIWBDPECHTR9643-45-62 18:13:00 Test Item Value Reference Range Interpretation Comments Neutrophils # (test code = Neutrophils 3.7 1.5-8.1 #) [facility] LancasterYelikwjWGYZPGTVEO0772-43-63 18:13:00 Test Item Value Reference Range Interpretation Comments Lymphocytes # (test code = Lymphocytes 0.7 1.0-5.5 #) [facility] LancasterQvnsakuMOXAQOWZEI8122-29-81 18:13:00 Test Item Value Reference Range Interpretation Comments Monocytes # (test code 0.4 See_Comment [Aut omated message] The = Monocytes #) system which generated this result tra nsmitted reference range : <=0.8. The reference r samantha was not used to int erpret this result as normal/abnormal . [facility] LancasterZpvmyvaCQIXTJGMIQ0241-07-70 18:13:00 Test Item Value Reference Range Interpretation Comments Anisocyte (test code = 2+ *ABN*(01/02/22 1:13 Anisocyte) PM) [facility] LancasterNbfaglfGOEMCMDKZR3626-47-81 18:13:00 Test Item Value Reference Range Interpretation Comments Macrocyte (test code = 2+ *ABN*(01/02/22 1:13 Macrocyte) PM) [facility] [id number] 18:13:00 Test Item Value Reference Range Interpretation Comments HS Troponin I (test code = HS Troponin 156 I) [facility] CenterSpe[facility] [place] [id number] 18:13:00 Test Item Value Reference Range Interpretation Comments Glucose Lvl (test code = Glucose Lvl) 237 70-99 [facility]2022-08-05 18:13:00 Test Item Value Reference Range Interpretation Comments BUN (test code = BUN) 46 7-22 [facility]2022-08-05 18:13:00 Test Item Value Reference Range Interpretation Comments Creatinine Lvl (test code = Creatinine 5.92 0.50-1.40 Lvl) [facility]2022-08-05 18:13:00 Test Item Value Reference Range Interpretation Comments Sodium Lvl (test code = Sodium Lvl) 134 135-145 [facility] [place]BR[place] [address]IBXED1709-20-41 18:13:00 Test Item Value Reference Range Interpretation Comments Potassium Lvl (test code = Potassium 4.4 3.5-5.1 Lvl) [place] 378062-08-05 18:13:00 Test Item Value Reference Range Interpretation Comments Chloride Lvl (test code = Chloride Lvl) 98 95-109 [facility] [place] [id number] 18:13:00 Test Item Value Reference Range Interpretation Comments CO2 (test code = CO2) 29 24-32 [place] [address]-08-05 18:13:00 Test Item Value Reference Range Interpretation Comments Calcium Lvl (test code = Calcium Lvl) 9.2 8.5-10.5 [facility] [place] [id number] 18:13:00 Test Item Value Reference Range Interpretation Comments Total Protein (test code = Total 6.6 6.4-8.4 Protein) [place] 378062-08-05 18:13:00 Test Item Value Reference Range Interpretation Comments Albumin Lvl (test code = Albumin Lvl) 3.1 3.5-5.0 [facility] [place] [id number] 18:13:00 Test Item Value Reference Range Interpretation Comments ALT (test code = ALT) 36 See_Comment [Auto mated message] The system which ge nerated this result transmit swathi reference range : <=65. The reference range was not used to interpr et this result as deny l/abnormal. [facility] [place] [id number] 18:13:00 Test Item Value Reference Range Interpretation Comments AST (test code = AST) 28 See_Comment [Auto mated message] The system which ge nerated this result transmit swathi reference range : <=37. The reference range was not used to interpr et this result as deny l/abnormal. [facility] [place] [id number] 18:13:00 Test Item Value Reference Range Interpretation Comments Alk Phos (test code = Alk Phos) 231 39-136 [facility] [id number] 18:13:00 Test Item Value Reference Range Interpretation Comments Bili Total (test code = Bili Total) 1.0 0.2-1.3 [facility] [place]ann[place] [id number] 18:13:00 Test Item Value Reference Range Interpretation Comments AGAP (test code = AGAP) 11.4 10.0-20.0 [address]08-05 18:13:00 Test Item Value Reference Range Interpretation Comments B/C Ratio (test code = B/C Ratio) 8 1 6-25 [address]08-05 18:13:00 Test Item Value Reference Range Interpretation Comments Globulin (test code = Globulin) 3.5 2.7-4.2 [address]08-05 18:13:00 Test Item Value Reference Range Interpretation Comments A/G Ratio (test code = A/G Ratio) 0.9 1 0.7-1.6 [address]08-05 18:13:00 Test Item Value Reference Range Interpretation Comments eGFR (test code = eGFR) 9 [place] [address]-08-05 18:13:00 Test Item Value Reference Range Interpretation Comments WBC (test code = WBC) 4.8 3.7-10.[address]08-05 18:13:00 Test Item Value Reference Range Interpretation Comments RBC (test code = RBC) 1.93 4.70-6.10 [address]08-05 18:13:00 Test Item Value Reference Range Interpretation Comments Hgb (test code = Hgb) 7.2 14.0-18.0 [address]08-05 18:13:00 Test Item Value Reference Range Interpretation Comments Hct (test code = Hct) 21.2 42.0-54.0 [address]08-05 18:13:00 Test Item Value Reference Range Interpretation Comments MCV (test code = MCV) 110.1 80.0-94.0 [address]08-05 18:13:00 Test Item Value Reference Range Interpretation Comments MCH (test code = MCH) 37.1 pg 27.0-31.0 [place] [address]-08-05 18:13:00 Test Item Value Reference Range Interpretation Comments MCHC (test code = MCHC) 33.7 32.0-36.0 [place] [address]-08-05 18:13:00 Test Item Value Reference Range Interpretation Comments RDW (test code = RDW) 25.8 11.5-14.5 [place] [address]-08-05 18:13:00 Test Item Value Reference Range Interpretation Comments Platelet (test code = Platelet) 216 133-450 [place] 247202-08-05 18:13:00 Test Item Value Reference Range Interpretation Comments MPV (test code = MPV) 8.2 7.4-10.4 [place] [address]-08-05 18:13:00 Test Item Value Reference Range Interpretation Comments PT (test code = PT) 16.9 s 12.0-14.7 [place] [address]-08-05 18:13:00 Test Item Value Reference Range Interpretation Comments INR (test code = INR) 1.39 1 0.85-1.17 [place] [address]-08-05 18:13:00 Test Item Value Reference Range Interpretation Comments PTT (test code = PTT) 35.0 s 22.9-35.8 [place] [address]-08-05 18:13:00 Test Item Value Reference Range Interpretation Comments Plt Morph (test code = Normal (01/02/22 1:13 PM) Plt Morph) [place] [address]-08-05 18:13:00 Test Item Value Reference Range Interpretation Comments Segs (test code = Segs) 76.4 45.0-75.0 [place] [address]-08-05 18:13:00 Test Item Value Reference Range Interpretation Comments Lymphocytes (test code = Lymphocytes) 14.6 20.0-40.0 [place] [address]-08-05 18:13:00 Test Item Value Reference Range Interpretation Comments Monocytes (test code = Monocytes) 7.5 2.0-12.0 [place] [address]-08-05 18:13:00 Test Item Value Reference Range Interpretation Comments Eosinophils (test code = 0.6 See_Comment [A utomated message] The Eosinophils) system which ge nerated this result tra nsmitted reference range : <=4.0. The reference r samantha was not used to int erpret this result as normal/abnormal . [place] 247202-08-05 18:13:00 Test Item Value Reference Range Interpretation Comments Basophils (test code = 0.9 See_Comment [Aut omated message] The Basophils) system which ge nerated this result tra nsmitted reference range : <=1.0. The reference r samantha was not used to int erpret this result as normal/abnormal . [place] 247202-08-05 18:13:00 Test Item Value Reference Range Interpretation Comments Neutrophils # (test code = Neutrophils 3.7 1.5-8.1 #) [place] 247202-08-05 18:13:00 Test Item Value Reference Range Interpretation Comments Lymphocytes # (test code = Lymphocytes 0.7 1.0-5.5 #) [place] [address]-08-05 18:13:00 Test Item Value Reference Range Interpretation Comments Monocytes # (test code 0.4 See_Comment [Aut omated message] The = Monocytes #) system which generated this result tra nsmitted reference range : <=0.8. The reference r samantha was not used to int erpret this result as normal/abnormal . [place] [address]-08-05 18:13:00 Test Item Value Reference Range Interpretation Comments Anisocyte (test code = 2+ *ABN*(01/02/22 1:13 Anisocyte) PM) [place] [address]-08-05 18:13:00 Test Item Value Reference Range Interpretation Comments Macrocyte (test code = 2+ *ABN*(01/02/22 1:13 Macrocyte) PM) [facility]2022-07-19 09:29:00 Test Item Value Reference Range Interpretation Comments Glucose Lvl (test code = Glucose Lvl) 199 70-99 [facility]2022-07-19 09:29:00 Test Item Value Reference Range Interpretation Comments BUN (test code = BUN) 28 7-22 [place] 378062-07-19 09:29:00 Test Item Value Reference Range Interpretation Comments Creatinine Lvl (test code = Creatinine 4.84 0.50-1.40 Lvl) [facility]2022-07-19 09:29:00 Test Item Value Reference Range Interpretation Comments Sodium Lvl (test code = Sodium Lvl) 134 135-145 [facility]2022-07-19 09:29:00 Test Item Value Reference Range Interpretation Comments Potassium Lvl (test code = Potassium 4.3 3.5-5.1 Lvl) [place] 378062-07-19 09:29:00 Test Item Value Reference Range Interpretation Comments Chloride Lvl (test code = Chloride Lvl) 100 95-109 [place] 378062-07-19 09:29:00 Test Item Value Reference Range Interpretation Comments CO2 (test code = CO2) 28 24-32 [place] 378062-07-19 09:29:00 Test Item Value Reference Range Interpretation Comments Calcium Lvl (test code = Calcium Lvl) 9.4 8.5-10.5 [place] 378062-07-19 09:29:00 Test Item Value Reference Range Interpretation Comments Total Protein (test code = Total 6.6 6.4-8.4 Protein) [place] 378062-07-19 09:29:00 Test Item Value Reference Range Interpretation Comments Albumin Lvl (test code = Albumin Lvl) 3.0 3.5-5.0 [place] 378062-07-19 09:29:00 Test Item Value Reference Range Interpretation Comments ALT (test code = ALT) 92 See_Comment [Auto mated message] The system which ge nerated this result transmit swathi reference range : <=65. The reference range was not used to interpr et this result as deny l/abnormal. [facility]2022-07-19 09:29:00 Test Item Value Reference Range Interpretation Comments AST (test code = AST) 123 See_Comment [Auto mated message] The system which ge nerated this result transmit swathi reference range : <=37. The reference range was not used to interpr et this result as deny l/abnormal. [facility] [id number] 09:29:00 Test Item Value Reference Range Interpretation Comments Alk Phos (test code = Alk Phos) 272 39-136 [place] 378062-07-19 09:29:00 Test Item Value Reference Range Interpretation Comments Bili Total (test code = Bili Total) 0.9 0.2-1.3 [place] 378062-07-19 09:29:00 Test Item Value Reference Range Interpretation Comments AGAP (test code = AGAP) 10.3 10.0-20.0 [place] 378062-07-19 09:29:00 Test Item Value Reference Range Interpretation Comments B/C Ratio (test code = B/C Ratio) 6 1 6-25 [place] 378062-07-19 09:29:00 Test Item Value Reference Range Interpretation Comments Globulin (test code = Globulin) 3.6 2.7-4.2 [place] 378062-07-19 09:29:00 Test Item Value Reference Range Interpretation Comments A/G Ratio (test code = A/G Ratio) 0.8 1 0.7-1.6 [place] [address]-07-19 09:29:00 Test Item Value Reference Range Interpretation Comments eGFR (test code = eGFR) 12 [facility]2022-07-19 09:29:00 Test Item Value Reference Range Interpretation Comments Phosphorus (test code = Phosphorus) 4.3 2.5-4.5 [place] 247202-07-19 09:29:00 Test Item Value Reference Range Interpretation Comments WBC (test code = WBC) 4.7 3.7-10.4 [place] 247202-07-19 09:29:00 Test Item Value Reference Range Interpretation Comments RBC (test code = RBC) 2.14 4.70-6.10 [place] 247202-07-19 09:29:00 Test Item Value Reference Range Interpretation Comments Hgb (test code = Hgb) 7.6 14.0-18.0 [place] 247202-07-19 09:29:00 Test Item Value Reference Range Interpretation Comments Hct (test code = Hct) 22.8 42.0-54.0 [place] 247202-07-19 09:29:00 Test Item Value Reference Range Interpretation Comments MCV (test code = MCV) 106.6 80.0-94.0 [place] 247202-07-19 09:29:00 Test Item Value Reference Range Interpretation Comments MCH (test code = MCH) 35.6 pg 27.0-31.0 [place] 247202-07-19 09:29:00 Test Item Value Reference Range Interpretation Comments MCHC (test code = MCHC) 33.4 32.0-36.0 [place] 247202-07-19 09:29:00 Test Item Value Reference Range Interpretation Comments RDW (test code = RDW) 24.3 11.5-14.5 [place] 247202-07-19 09:29:00 Test Item Value Reference Range Interpretation Comments Platelet (test code = Platelet) 148 133-450 [place] [address]-07-19 09:29:00 Test Item Value Reference Range Interpretation Comments MPV (test code = MPV) 8.1 7.4-10.4 [place] 247202-07-19 09:29:00 Test Item Value Reference Range Interpretation Comments D-Dimer (test code = D-Dimer) 3.63 [place] [address]-07-19 09:29:00 Test Item Value Reference Range Interpretation Comments Segs (test code = Segs) 74.8 45.0-75.0 [place] [address]-07-19 09:29:00 Test Item Value Reference Range Interpretation Comments Lymphocytes (test code = Lymphocytes) 15.5 20.0-40.0 [place] 247202-07-19 09:29:00 Test Item Value Reference Range Interpretation Comments Monocytes (test code = Monocytes) 9.5 2.0-12.0 [place] [address]-07-19 09:29:00 Test Item Value Reference Range Interpretation Comments Basophils (test code = 0.2 See_Comment [Aut omated message] The Basophils) system which ge nerated this result tra nsmitted reference range : <=1.0. The reference r samantha was not used to int erpret this result as normal/abnormal . [facility] LancasterKfgxhioOIEMMEWJUU1338-60-65 09:29:00 Test Item Value Reference Range Interpretation Comments Neutrophils # (test code = Neutrophils 3.5 1.5-8.1 #) [place] 247202-07-19 09:29:00 Test Item Value Reference Range Interpretation Comments Lymphocytes # (test code = Lymphocytes 0.7 1.0-5.5 #) [place] [address]-07-19 09:29:00 Test Item Value Reference Range Interpretation Comments Monocytes # (test code 0.4 See_Comment [Aut omated message] The = Monocytes #) system which generated this result tra nsmitted reference range : <=0.8. The reference r samantha was not used to int erpret this result as normal/abnormal . [place] [address]-07-19 09:29:00 Test Item Value Reference Range Interpretation Comments Macrocyte (test code = 1+ *ABN*(12/16/21 Macrocyte) 4:29 AM) [facility]44[facility] 09:29:00 Test Item Value Reference Range Interpretation Comments C-REACTIVE PROTEIN (test code = 19.0 C-REACTIVE PROTEIN) [facility]2022-07-19 09:29:00 Test Item Value Reference Range Interpretation Comments Glucose Lvl (test code = Glucose Lvl) 199 70-99 [facility]2022-07-19 09:29:00 Test Item Value Reference Range Interpretation Comments BUN (test code = BUN) 28 7- [facility]2022-07-19 09:29:00 Test Item Value Reference Range Interpretation Comments Creatinine Lvl (test code = Creatinine 4.84 0.50-1.40 Lvl) [facility]2022-07-19 09:29:00 Test Item Value Reference Range Interpretation Comments Sodium Lvl (test code = Sodium Lvl) 134 135-145 [facility]2022-07-19 09:29:00 Test Item Value Reference Range Interpretation Comments Potassium Lvl (test code = Potassium 4.3 3.5-5.1 Lvl) [facility]2022-07-19 09:29:00 Test Item Value Reference Range Interpretation Comments Chloride Lvl (test code = Chloride Lvl) 100 95-109 [facility]2022-07-19 09:29:00 Test Item Value Reference Range Interpretation Comments CO2 (test code = CO2) 28 24-32 [facility]2022-07-19 09:29:00 Test Item Value Reference Range Interpretation Comments Calcium Lvl (test code = Calcium Lvl) 9.4 8.5-10.5 [facility]2022-07-19 09:29:00 Test Item Value Reference Range Interpretation Comments Total Protein (test code = Total 6.6 6.4-8.4 Protein) [facility]2022-07-19 09:29:00 Test Item Value Reference Range Interpretation Comments Albumin Lvl (test code = Albumin Lvl) 3.0 3.5-5.0 [place] 378062-07-19 09:29:00 Test Item Value Reference Range Interpretation Comments ALT (test code = ALT) 92 See_Comment [Auto mated message] The system which ge nerated this result transmit swathi reference range : <=65. The reference range was not used to interpr et this result as deny l/abnormal. [facility]2022-07-19 09:29:00 Test Item Value Reference Range Interpretation Comments Glucose Lvl (test code = Glucose Lvl) 199 70-99 [place] 378062-07-19 09:29:00 Test Item Value Reference Range Interpretation Comments BUN (test code = BUN) 28 7-22 [place] 378062-07-19 09:29:00 Test Item Value Reference Range Interpretation Comments Creatinine Lvl (test code = Creatinine 4.84 0.50-1.40 Lvl) [place] 378062-07-19 09:29:00 Test Item Value Reference Range Interpretation Comments Sodium Lvl (test code = Sodium Lvl) 134 135-145 [place] 378062-07-19 09:29:00 Test Item Value Reference Range Interpretation Comments AST (test code = AST) 123 See_Comment [Auto mated message] The system which ge nerated this result transmit swathi reference range : <=37. The reference range was not used to interpr et this result as deny l/abnormal. [place] 378062-07-19 09:29:00 Test Item Value Reference Range Interpretation Comments Potassium Lvl (test code = Potassium 4.3 3.5-5.1 Lvl) [place] 378062-07-19 09:29:00 Test Item Value Reference Range Interpretation Comments Chloride Lvl (test code = Chloride Lvl) 100 95-109 [place] 378062-07-19 09:29:00 Test Item Value Reference Range Interpretation Comments CO2 (test code = CO2) 28 24-32 [place] 378062-07-19 09:29:00 Test Item Value Reference Range Interpretation Comments Calcium Lvl (test code = Calcium Lvl) 9.4 8.5-10.5 [place] 378062-07-19 09:29:00 Test Item Value Reference Range Interpretation Comments Total Protein (test code = Total 6.6 6.4-8.4 Protein) [place] 378062-07-19 09:29:00 Test Item Value Reference Range Interpretation Comments Albumin Lvl (test code = Albumin Lvl) 3.0 3.5-5.0 [facility] IROCKE [id number] 09:29:00 Test Item Value Reference Range Interpretation Comments ALT (test code = ALT) 92 See_Comment [Auto mated message] The system which ge nerated this result transmit swathi reference range : <=65. The reference range was not used to interpr et this result as deny l/abnormal. [facility] IR[place]KE [id number] 09:29:00 Test Item Value Reference Range Interpretation Comments AST (test code = AST) 123 See_Comment [Auto mated message] The system which ge nerated this result transmit swathi reference range : <=37. The reference range was not used to interpr et this result as deny l/abnormal. [facility] IR[place]KE [id number] 09:29:00 Test Item Value Reference Range Interpretation Comments Alk Phos (test code = Alk Phos) 272 39-136 [facility] [place] [id number] 09:29:00 Test Item Value Reference Range Interpretation Comments Bili Total (test code = Bili Total) 0.9 0.2-1.3 [facility] [place] [id number] 09:29:00 Test Item Value Reference Range Interpretation Comments Alk Phos (test code = Alk Phos) 272 39-136 [place] [id number] 09:29:00 Test Item Value Reference Range Interpretation Comments AGAP (test code = AGAP) 10.3 10.0-20.0 [facility] [place] [id number] 09:29:00 Test Item Value Reference Range Interpretation Comments B/C Ratio (test code = B/C Ratio) 6 1 6-25 [facility] [place] [id number] 09:29:00 Test Item Value Reference Range Interpretation Comments Globulin (test code = Globulin) 3.6 2.7-4.2 [facility] [place] [id number] 09:29:00 Test Item Value Reference Range Interpretation Comments A/G Ratio (test code = A/G Ratio) 0.8 1 0.7-1.6 [facility] [place] [id number] 09:29:00 Test Item Value Reference Range Interpretation Comments eGFR (test code = eGFR) 12 [facility]2022-07-19 09:29:00 Test Item Value Reference Range Interpretation Comments Phosphorus (test code = Phosphorus) 4.3 2.5-4.5 [facility] LancasterKdamqleHICHLOZGLI1040-86-66 09:29:00 Test Item Value Reference Range Interpretation Comments WBC (test code = WBC) 4.7 3.7-10.4 [facility] LancasterGmmnahqBBCIUUCZUX4287-54-52 09:29:00 Test Item Value Reference Range Interpretation Comments RBC (test code = RBC) 2.14 4.70-6.10 [facility] LancasterSfsbrmrGRLPQRSOOF8892-27-29 09:29:00 Test Item Value Reference Range Interpretation Comments Hgb (test code = Hgb) 7.6 14.0-18.0 [place] 247202-07-19 09:29:00 Test Item Value Reference Range Interpretation Comments Hct (test code = Hct) 22.8 42.0-54.0 [facility]2022-07-19 09:29:00 Test Item Value Reference Range Interpretation Comments Bili Total (test code = Bili Total) 0.9 0.2-1.3 [facility] LancasterLcxonjoIFMVRQIKTF8968-97-11 09:29:00 Test Item Value Reference Range Interpretation Comments MCV (test code = MCV) 106.6 80.0-94.0 [facility] LancasterLatexccHHQWWEIDNU8036-90-94 09:29:00 Test Item Value Reference Range Interpretation Comments MCH (test code = MCH) 35.6 pg 27.0-31.0 [facility] LancasterWvwgscmPAILYMJEQL6897-71-46 09:29:00 Test Item Value Reference Range Interpretation Comments MCHC (test code = MCHC) 33.4 32.0-36.0 [facility] LancasterCojcaoiMNMVANHLIO9510-43-73 09:29:00 Test Item Value Reference Range Interpretation Comments RDW (test code = RDW) 24.3 11.5-14.5 [place] 247202-07-19 09:29:00 Test Item Value Reference Range Interpretation Comments Platelet (test code = Platelet) 148 133-450 [facility] LancasterUzifmxcGLWOGIQTKK9346-86-03 09:29:00 Test Item Value Reference Range Interpretation Comments MPV (test code = MPV) 8.1 7.4-10.4 [place] 247202-07-19 09:29:00 Test Item Value Reference Range Interpretation Comments D-Dimer (test code = D-Dimer) 3.63 [facility] LancasterAhoqczhYEZXCUSIDS6427-79-20 09:29:00 Test Item Value Reference Range Interpretation Comments Segs (test code = Segs) 74.8 45.0-75.0 [facility] LancasterPifhwiqLJGBPWDKZD1988-89-33 09:29:00 Test Item Value Reference Range Interpretation Comments Lymphocytes (test code = Lymphocytes) 15.5 20.0-40.0 [facility] LancasterLcsbxuiUSOQQMCONI1404-81-47 09:29:00 Test Item Value Reference Range Interpretation Comments Monocytes (test code = Monocytes) 9.5 2.0-12.0 [facility]2022-07-19 09:29:00 Test Item Value Reference Range Interpretation Comments AGAP (test code = AGAP) 10.3 10.0-20.0 [place] 247202-07-19 09:29:00 Test Item Value Reference Range Interpretation Comments Basophils (test code = 0.2 See_Comment [Aut omated message] The Basophils) system which ge nerated this result tra nsmitted reference range : <=1.0. The reference r samantha was not used to int erpret this result as normal/abnormal . [facility] LancasterVjbjkpxTCZNKCRDNX0822-78-95 09:29:00 Test Item Value Reference Range Interpretation Comments Neutrophils # (test code = Neutrophils 3.5 1.5-8.1 #) [facility] LancasterSrkasksRQCOGTWIDX2447-87-81 09:29:00 Test Item Value Reference Range Interpretation Comments Lymphocytes # (test code = Lymphocytes 0.7 1.0-5.5 #) [facility] LancasterNvfnwakCIEEHPWWUX4159-25-61 09:29:00 Test Item Value Reference Range Interpretation Comments Monocytes # (test code 0.4 See_Comment [Aut omated message] The = Monocytes #) system which generated this result tra nsmitted reference range : <=0.8. The reference r samantha was not used to int erpret this result as normal/abnormal . [facility] LancasterYlctfyvVLZGXYHXKP2896-05-89 09:29:00 Test Item Value Reference Range Interpretation Comments Macrocyte (test code = 1+ *ABN*(12/16/21 Macrocyte) 4:29 AM) [place] 646932-07-19 09:29:00 Test Item Value Reference Range Interpretation Comments C-REACTIVE PROTEIN (test code = 19.0 C-REACTIVE PROTEIN) [place] 378062-07-19 09:29:00 Test Item Value Reference Range Interpretation Comments B/C Ratio (test code = B/C Ratio) 6 1 6-25 [place] 378062-07-19 09:29:00 Test Item Value Reference Range Interpretation Comments Globulin (test code = Globulin) 3.6 2.7-4.2 [place] 378062-07-19 09:29:00 Test Item Value Reference Range Interpretation Comments A/G Ratio (test code = A/G Ratio) 0.8 1 0.7-1.6 [place] 378062-07-19 09:29:00 Test Item Value Reference Range Interpretation Comments eGFR (test code = eGFR) 12 [facility]2022-07-19 09:29:00 Test Item Value Reference Range Interpretation Comments Phosphorus (test code = Phosphorus) 4.3 2.5-4.5 [place] 247202-07-19 09:29:00 Test Item Value Reference Range Interpretation Comments WBC (test code = WBC) 4.7 3.7-10.4 [place] 247202-07-19 09:29:00 Test Item Value Reference Range Interpretation Comments RBC (test code = RBC) 2.14 4.70-6.10 [place] 247202-07-19 09:29:00 Test Item Value Reference Range Interpretation Comments Hgb (test code = Hgb) 7.6 14.0-18.0 [place] 247202-07-19 09:29:00 Test Item Value Reference Range Interpretation Comments Hct (test code = Hct) 22.8 42.0-54.0 [place] [address]-07-19 09:29:00 Test Item Value Reference Range Interpretation Comments MCV (test code = MCV) 106.6 80.0-94.0 [place] 247202-07-19 09:29:00 Test Item Value Reference Range Interpretation Comments MCH (test code = MCH) 35.6 pg 27.0-31.0 [place] 247202-07-19 09:29:00 Test Item Value Reference Range Interpretation Comments MCHC (test code = MCHC) 33.4 32.0-36.0 [place] [address]-07-19 09:29:00 Test Item Value Reference Range Interpretation Comments RDW (test code = RDW) 24.3 11.5-14.5 [place] [address]-07-19 09:29:00 Test Item Value Reference Range Interpretation Comments Platelet (test code = Platelet) 148 133-450 [place] 247202-07-19 09:29:00 Test Item Value Reference Range Interpretation Comments MPV (test code = MPV) 8.1 7.4-10.4 [place] [address]-07-19 09:29:00 Test Item Value Reference Range Interpretation Comments D-Dimer (test code = D-Dimer) 3.63 [place] [address]-07-19 09:29:00 Test Item Value Reference Range Interpretation Comments Segs (test code = Segs) 74.8 45.0-75.0 [place] [address]-07-19 09:29:00 Test Item Value Reference Range Interpretation Comments Lymphocytes (test code = Lymphocytes) 15.5 20.0-40.0 [place] 247202-07-19 09:29:00 Test Item Value Reference Range Interpretation Comments Monocytes (test code = Monocytes) 9.5 2.0-12.0 [place] [address]-07-19 09:29:00 Test Item Value Reference Range Interpretation Comments Basophils (test code = 0.2 See_Comment [Aut omated message] The Basophils) system which ge nerated this result tra nsmitted reference range : <=1.0. The reference r samantha was not used to int erpret this result as normal/abnormal . [facility] LancasterFvgcwawCIGCXHJDES2154-38-02 09:29:00 Test Item Value Reference Range Interpretation Comments Neutrophils # (test code = Neutrophils 3.5 1.5-8.1 #) [place] [address]-07-19 09:29:00 Test Item Value Reference Range Interpretation Comments Lymphocytes # (test code = Lymphocytes 0.7 1.0-5.5 #) [place] [address]-07-19 09:29:00 Test Item Value Reference Range Interpretation Comments Monocytes # (test code 0.4 See_Comment [Aut omated message] The = Monocytes #) system which generated this result tra nsmitted reference range : <=0.8. The reference r samantha was not used to int erpret this result as normal/abnormal . [facility]IEFG[facility]HYB1016[facility] 09:29:00 Test Item Value Reference Range Interpretation Comments Macrocyte (test code = 1+ *ABN*(12/16/21 Macrocyte) 4:29 AM) [facility] CenterJxovwicAYNXRYDFXI3307-27-88 09:29:00 Test Item Value Reference Range Interpretation Comments C-REACTIVE PROTEIN (test code = 19.0 C-REACTIVE PROTEIN) [facility]2022-07-19 09:29:00 Test Item Value Reference Range Interpretation Comments Glucose Lvl (test code = Glucose Lvl) 199 70-99 [place] 378062-07-19 09:29:00 Test Item Value Reference Range Interpretation Comments BUN (test code = BUN) 28 12-19 [place] 378062-07-19 09:29:00 Test Item Value Reference Range Interpretation Comments Creatinine Lvl (test code = Creatinine 4.84 0.50-1.40 Lvl) [facility]2022-07-19 09:29:00 Test Item Value Reference Range Interpretation Comments Sodium Lvl (test code = Sodium Lvl) 134 135-145 [place] 378062-07-19 09:29:00 Test Item Value Reference Range Interpretation Comments Potassium Lvl (test code = Potassium 4.3 3.5-5.1 Lvl) [place] 378062-07-19 09:29:00 Test Item Value Reference Range Interpretation Comments Chloride Lvl (test code = Chloride Lvl) 100 95-109 [place] 378062-07-19 09:29:00 Test Item Value Reference Range Interpretation Comments CO2 (test code = CO2) 28 24-32 [place] 378062-07-19 09:29:00 Test Item Value Reference Range Interpretation Comments Calcium Lvl (test code = Calcium Lvl) 9.4 8.5-10.5 [place] 378062-07-19 09:29:00 Test Item Value Reference Range Interpretation Comments Total Protein (test code = Total 6.6 6.4-8.4 Protein) [place] 378062-07-19 09:29:00 Test Item Value Reference Range Interpretation Comments Albumin Lvl (test code = Albumin Lvl) 3.0 3.5-5.0 [facility] [place] VQVUI7312-09-40 09:29:00 Test Item Value Reference Range Interpretation Comments ALT (test code = ALT) 92 See_Comment [Auto mated message] The system which ge nerated this result transmit swathi reference range : <=65. The reference range was not used to interpr et this result as deny l/abnormal. [facility] IR[place]KE [id number] 09:29:00 Test Item Value Reference Range Interpretation Comments AST (test code = AST) 123 See_Comment [Auto mated message] The system which ge nerated this result transmit swathi reference range : <=37. The reference range was not used to interpr et this result as deny l/abnormal. [facility] [place] [id number] 09:29:00 Test Item Value Reference Range Interpretation Comments Alk Phos (test code = Alk Phos) 272 39-136 [facility] [place] FIMJV7163-20-66 09:29:00 Test Item Value Reference Range Interpretation Comments Bili Total (test code = Bili Total) 0.9 0.2-1.3 [facility] [place] MYWML0852-73-18 09:29:00 Test Item Value Reference Range Interpretation Comments AGAP (test code = AGAP) 10.3 10.0-20.0 [facility] [place] [id number] 09:29:00 Test Item Value Reference Range Interpretation Comments B/C Ratio (test code = B/C Ratio) 6 1 6-25 [facility] [place] [id number] 09:29:00 Test Item Value Reference Range Interpretation Comments Globulin (test code = Globulin) 3.6 2.7-4.2 [facility] [place] [id number] 09:29:00 Test Item Value Reference Range Interpretation Comments A/G Ratio (test code = A/G Ratio) 0.8 1 0.7-1.6 [facility] [place] PZIUE8070-03-16 09:29:00 Test Item Value Reference Range Interpretation Comments eGFR (test code = eGFR) 12 [facility] [place] [id number] 09:29:00 Test Item Value Reference Range Interpretation Comments Phosphorus (test code = Phosphorus) 4.3 2.5-4.5 [facility] CenterUtigrogLULKWYNOKB2349-69-53 09:29:00 Test Item Value Reference Range Interpretation Comments WBC (test code = WBC) 4.7 3.7-10.4 [facility] LancasterFleerinDCLKTNYHOM3654-49-12 09:29:00 Test Item Value Reference Range Interpretation Comments RBC (test code = RBC) 2.14 4.70-6.10 [facility] LancasterQknbqdjZZTDEWRDMZ4901-79-41 09:29:00 Test Item Value Reference Range Interpretation Comments Hgb (test code = Hgb) 7.6 14.0-18.0 [facility] LancasterSaujkrqPZRNBLFIEE8796-86-79 09:29:00 Test Item Value Reference Range Interpretation Comments Hct (test code = Hct) 22.8 42.0-54.0 [facility] LancasterVbbmdopPADWPLHGGU9380-89-27 09:29:00 Test Item Value Reference Range Interpretation Comments MCV (test code = MCV) 106.6 80.0-94.0 [facility] LancasterRicyjevPAFVEJJQAI3650-14-45 09:29:00 Test Item Value Reference Range Interpretation Comments MCH (test code = MCH) 35.6 pg 27.0-31.0 [facility] LancasterCnhmfirEDUKZPRDIK6506-03-71 09:29:00 Test Item Value Reference Range Interpretation Comments MCHC (test code = MCHC) 33.4 32.0-36.0 [facility] LancasterCusjirxEQLSUJRZFD7991-92-21 09:29:00 Test Item Value Reference Range Interpretation Comments RDW (test code = RDW) 24.3 11.5-14.5 [facility] LancasterEofmdrmCADQQSXRHM2728-49-07 09:29:00 Test Item Value Reference Range Interpretation Comments Platelet (test code = Platelet) 148 133-450 [facility] LancasterStpfxwvGYOHFXDFQA2096-20-01 09:29:00 Test Item Value Reference Range Interpretation Comments MPV (test code = MPV) 8.1 7.4-10.4 [facility] LancasterUgmmjmoWIQMZTIYTI0875-54-04 09:29:00 Test Item Value Reference Range Interpretation Comments D-Dimer (test code = D-Dimer) 3.63 [facility] LancasterLqrhpgpHPCVXVSQAQ1317-86-05 09:29:00 Test Item Value Reference Range Interpretation Comments Segs (test code = Segs) 74.8 45.0-75.0 [facility] LancasterBsdfrqlXXTEHPAWMN2941-82-04 09:29:00 Test Item Value Reference Range Interpretation Comments Lymphocytes (test code = Lymphocytes) 15.5 20.0-40.0 [facility] LancasterBzhosjkEFCCGFOLTC9461-07-61 09:29:00 Test Item Value Reference Range Interpretation Comments Monocytes (test code = Monocytes) 9.5 2.0-12.0 [facility] LancasterTniwqvgOUKUZIOJLR1852-44-91 09:29:00 Test Item Value Reference Range Interpretation Comments Basophils (test code = 0.2 See_Comment [Aut omated message] The Basophils) system which ge nerated this result tra nsmitted reference range : <=1.0. The reference r samantha was not used to int erpret this result as normal/abnormal . [facility] LancasterHzikjxjHRJTNPKLPI0174-49-59 09:29:00 Test Item Value Reference Range Interpretation Comments Neutrophils # (test code = Neutrophils 3.5 1.5-8.1 #) [facility] LancasterOetuknqHMOQNWCPAV0772-86-73 09:29:00 Test Item Value Reference Range Interpretation Comments Lymphocytes # (test code = Lymphocytes 0.7 1.0-5.5 #) [facility] LancasterAaxqafkMYOGXTZJGU2974-04-83 09:29:00 Test Item Value Reference Range Interpretation Comments Monocytes # (test code 0.4 See_Comment [Aut omated message] The = Monocytes #) system which generated this result tra nsmitted reference range : <=0.8. The reference r samantha was not used to int erpret this result as normal/abnormal . [facility] CenterFqwhlwbLUPIQRPOUC2268-62-11 09:29:00 Test Item Value Reference Range Interpretation Comments Macrocyte (test code = 1+ *ABN*(12/16/21 Macrocyte) 4:29 AM) [facility] CenterBrfkgmoXSAADGLVCU9320-44-89 09:29:00 Test Item Value Reference Range Interpretation Comments C-REACTIVE PROTEIN (test code = 19.0 C-REACTIVE PROTEIN) [facility] CenterSpe[facility] [id number] 09:29:00 Test Item Value Reference Range Interpretation Comments Glucose Lvl (test code = Glucose Lvl) 199 70-99 [facility] FLUHP5029-01-58 09:29:00 Test Item Value Reference Range Interpretation Comments BUN (test code = BUN) 28 - [facility] YUUAJ9885-14-19 09:29:00 Test Item Value Reference Range Interpretation Comments Creatinine Lvl (test code = Creatinine 4.84 0.50-1.40 Lvl) [place] 378062-07-19 09:29:00 Test Item Value Reference Range Interpretation Comments Sodium Lvl (test code = Sodium Lvl) 134 135-145 [place] 378062-07-19 09:29:00 Test Item Value Reference Range Interpretation Comments Potassium Lvl (test code = Potassium 4.3 3.5-5.1 Lvl) [place] [address]-07-19 09:29:00 Test Item Value Reference Range Interpretation Comments Chloride Lvl (test code = Chloride Lvl) 100 95-109 [place] 378062-07-19 09:29:00 Test Item Value Reference Range Interpretation Comments CO2 (test code = CO2) 28 24-32 [place] [address]-07-19 09:29:00 Test Item Value Reference Range Interpretation Comments Calcium Lvl (test code = Calcium Lvl) 9.4 8.5-10.5 [place] 378062-07-19 09:29:00 Test Item Value Reference Range Interpretation Comments Total Protein (test code = Total 6.6 6.4-8.4 Protein) [place] [address]-07-19 09:29:00 Test Item Value Reference Range Interpretation Comments Albumin Lvl (test code = Albumin Lvl) 3.0 3.5-5.0 [place] [address]-07-19 09:29:00 Test Item Value Reference Range Interpretation Comments ALT (test code = ALT) 92 See_Comment [Auto mated message] The system which ge nerated this result transmit swathi reference range : <=65. The reference range was not used to interpr et this result as dney l/abnormal. [place] [address]-07-19 09:29:00 Test Item Value Reference Range Interpretation Comments AST (test code = AST) 123 See_Comment [Auto mated message] The system which ge nerated this result transmit swathi reference range : <=37. The reference range was not used to interpr et this result as deny l/abnormal. [place] 378062-07-19 09:29:00 Test Item Value Reference Range Interpretation Comments Alk Phos (test code = Alk Phos) 272 39-136 [place] 378062-07-19 09:29:00 Test Item Value Reference Range Interpretation Comments Bili Total (test code = Bili Total) 0.9 0.2-1.3 [place] 378062-07-19 09:29:00 Test Item Value Reference Range Interpretation Comments AGAP (test code = AGAP) 10.3 10.0-20.0 [facility]2022-07-19 09:29:00 Test Item Value Reference Range Interpretation Comments B/C Ratio (test code = B/C Ratio) 6 1 6-25 [place] 378062-07-19 09:29:00 Test Item Value Reference Range Interpretation Comments Globulin (test code = Globulin) 3.6 2.7-4.2 [place] 378062-07-19 09:29:00 Test Item Value Reference Range Interpretation Comments A/G Ratio (test code = A/G Ratio) 0.8 1 0.7-1.6 [place] 378062-07-19 09:29:00 Test Item Value Reference Range Interpretation Comments eGFR (test code = eGFR) 12 [facility]2022-07-19 09:29:00 Test Item Value Reference Range Interpretation Comments Phosphorus (test code = Phosphorus) 4.3 2.5-4.5 [facility]UqtecezWSBTRMGYRP9972-41-21 09:29:00 Test Item Value Reference Range Interpretation Comments WBC (test code = WBC) 4.7 3.7-10.4 [facility] LancasterHwazvdkDWGRORDELF4076-85-85 09:29:00 Test Item Value Reference Range Interpretation Comments RBC (test code = RBC) 2.14 4.70-6.10 [place] 247202-07-19 09:29:00 Test Item Value Reference Range Interpretation Comments Hgb (test code = Hgb) 7.6 14.0-18.0 [place] 247202-07-19 09:29:00 Test Item Value Reference Range Interpretation Comments Hct (test code = Hct) 22.8 42.0-54.0 [place] 247202-07-19 09:29:00 Test Item Value Reference Range Interpretation Comments MCV (test code = MCV) 106.6 80.0-94.0 [place] 247202-07-19 09:29:00 Test Item Value Reference Range Interpretation Comments MCH (test code = MCH) 35.6 pg 27.0-31.0 [place] [address]-07-19 09:29:00 Test Item Value Reference Range Interpretation Comments MCHC (test code = MCHC) 33.4 32.0-36.0 [place] 247202-07-19 09:29:00 Test Item Value Reference Range Interpretation Comments RDW (test code = RDW) 24.3 11.5-14.5 [place] 247202-07-19 09:29:00 Test Item Value Reference Range Interpretation Comments Platelet (test code = Platelet) 148 133-450 [place] 247202-07-19 09:29:00 Test Item Value Reference Range Interpretation Comments MPV (test code = MPV) 8.1 7.4-10.4 [place] 247202-07-19 09:29:00 Test Item Value Reference Range Interpretation Comments D-Dimer (test code = D-Dimer) 3.63 [place] 247202-07-19 09:29:00 Test Item Value Reference Range Interpretation Comments Segs (test code = Segs) 74.8 45.0-75.0 [facility] LancasterNzccafxAHJXKVXPNW6554-94-76 09:29:00 Test Item Value Reference Range Interpretation Comments Lymphocytes (test code = Lymphocytes) 15.5 20.0-40.0 [place] 247202-07-19 09:29:00 Test Item Value Reference Range Interpretation Comments Monocytes (test code = Monocytes) 9.5 2.0-12.0 [place] 247202-07-19 09:29:00 Test Item Value Reference Range Interpretation Comments Basophils (test code = 0.2 See_Comment [Aut omated message] The Basophils) system which ge nerated this result tra nsmitted reference range : <=1.0. The reference r samantha was not used to int erpret this result as normal/abnormal . [facility] LancasterGabflipNZJXHKQNDU2984-63-95 09:29:00 Test Item Value Reference Range Interpretation Comments Neutrophils # (test code = Neutrophils 3.5 1.5-8.1 #) [place] 247202-07-19 09:29:00 Test Item Value Reference Range Interpretation Comments Lymphocytes # (test code = Lymphocytes 0.7 1.0-5.5 #) [place] 247202-07-19 09:29:00 Test Item Value Reference Range Interpretation Comments Monocytes # (test code 0.4 See_Comment [Aut omated message] The = Monocytes #) system which generated this result tra nsmitted reference range : <=0.8. The reference r samantha was not used to int erpret this result as normal/abnormal . [facility] 09:29:00 Test Item Value Reference Range Interpretation Comments Macrocyte (test code = 1+ *ABN*(12/16/21 Macrocyte) 4:29 AM) [facility] CenterGpxfnzmADZIFBIDFO4243-88-00 09:29:00 Test Item Value Reference Range Interpretation Comments C-REACTIVE PROTEIN (test code = 19.0 C-REACTIVE PROTEIN) [facility]2022-07-19 09:29:00 Test Item Value Reference Range Interpretation Comments Glucose Lvl (test code = Glucose Lvl) 199 70-99 [facility]2022-07-19 09:29:00 Test Item Value Reference Range Interpretation Comments BUN (test code = BUN) 28 12-19 [place] 378062-07-19 09:29:00 Test Item Value Reference Range Interpretation Comments Creatinine Lvl (test code = Creatinine 4.84 0.50-1.40 Lvl) [facility]2022-07-19 09:29:00 Test Item Value Reference Range Interpretation Comments Sodium Lvl (test code = Sodium Lvl) 134 135-145 [facility]2022-07-19 09:29:00 Test Item Value Reference Range Interpretation Comments Potassium Lvl (test code = Potassium 4.3 3.5-5.1 Lvl) [facility]2022-07-19 09:29:00 Test Item Value Reference Range Interpretation Comments Chloride Lvl (test code = Chloride Lvl) 100 95-109 [place] 378062-07-19 09:29:00 Test Item Value Reference Range Interpretation Comments CO2 (test code = CO2) 28 24-32 [place] 378062-07-19 09:29:00 Test Item Value Reference Range Interpretation Comments Calcium Lvl (test code = Calcium Lvl) 9.4 8.5-10.5 [facility]2022-07-19 09:29:00 Test Item Value Reference Range Interpretation Comments Total Protein (test code = Total 6.6 6.4-8.4 Protein) [place] 378062-07-19 09:29:00 Test Item Value Reference Range Interpretation Comments Albumin Lvl (test code = Albumin Lvl) 3.0 3.5-5.0 [place] 378062-07-19 09:29:00 Test Item Value Reference Range Interpretation Comments ALT (test code = ALT) 92 See_Comment [Auto mated message] The system which ge nerated this result transmit swathi reference range : <=65. The reference range was not used to interpr et this result as deny l/abnormal. [facility] [id number] 09:29:00 Test Item Value Reference Range Interpretation Comments AST (test code = AST) 123 See_Comment [Auto mated message] The system which ge nerated this result transmit swathi reference range : <=37. The reference range was not used to interpr et this result as deny l/abnormal. [facility] [place] [id number] 09:29:00 Test Item Value Reference Range Interpretation Comments Alk Phos (test code = Alk Phos) 272 39-136 [facility] [place] [id number] 09:29:00 Test Item Value Reference Range Interpretation Comments Bili Total (test code = Bili Total) 0.9 0.2-1.3 [facility] ATPVM5124-07-32 09:29:00 Test Item Value Reference Range Interpretation Comments AGAP (test code = AGAP) 10.3 10.0-20.0 [facility] [place] [id number] 09:29:00 Test Item Value Reference Range Interpretation Comments B/C Ratio (test code = B/C Ratio) 6 1 6-25 [facility] [place] [id number] 09:29:00 Test Item Value Reference Range Interpretation Comments Globulin (test code = Globulin) 3.6 2.7-4.2 [facility] [id number] 09:29:00 Test Item Value Reference Range Interpretation Comments A/G Ratio (test code = A/G Ratio) 0.8 1 0.7-1.6 [facility] [id number] 09:29:00 Test Item Value Reference Range Interpretation Comments eGFR (test code = eGFR) 12 [facility] [id number] 09:29:00 Test Item Value Reference Range Interpretation Comments Phosphorus (test code = Phosphorus) 4.3 2.5-4.5 [facility] LancasterFweneqiKYQRCJEUMA7378-04-59 09:29:00 Test Item Value Reference Range Interpretation Comments WBC (test code = WBC) 4.7 3.7-10.4 [facility] LancasterZkrgediYPUVKUXXJT8960-33-40 09:29:00 Test Item Value Reference Range Interpretation Comments RBC (test code = RBC) 2.14 4.70-6.10 [facility] LancasterBxzggpxRWHWWIDFBV8017-89-61 09:29:00 Test Item Value Reference Range Interpretation Comments Hgb (test code = Hgb) 7.6 14.0-18.0 [facility] LancasterDampqscOVBHGVAJZJ7070-44-87 09:29:00 Test Item Value Reference Range Interpretation Comments Hct (test code = Hct) 22.8 42.0-54.0 [facility] LancasterCsvfqyyJNKGJTEOCN9305-83-27 09:29:00 Test Item Value Reference Range Interpretation Comments MCV (test code = MCV) 106.6 80.0-94.0 [facility] LancasterXbhfpoaYKOCXPUVHU2956-81-08 09:29:00 Test Item Value Reference Range Interpretation Comments MCH (test code = MCH) 35.6 pg 27.0-31.0 [facility] LancasterDzrullkNYLMIAYWWZ5006-99-67 09:29:00 Test Item Value Reference Range Interpretation Comments MCHC (test code = MCHC) 33.4 32.0-36.0 [facility] LancasterTpladsuDTOZFDYQST8487-36-03 09:29:00 Test Item Value Reference Range Interpretation Comments RDW (test code = RDW) 24.3 11.5-14.5 [facility] LancasterJgcdgkyWXZWAWDLCL3976-95-63 09:29:00 Test Item Value Reference Range Interpretation Comments Platelet (test code = Platelet) 148 133-450 [facility] LancasterXbnrlljLANUMYYUIP6349-77-90 09:29:00 Test Item Value Reference Range Interpretation Comments MPV (test code = MPV) 8.1 7.4-10.4 [facility] LancasterSybxyctGUROTFZIQS4408-89-59 09:29:00 Test Item Value Reference Range Interpretation Comments D-Dimer (test code = D-Dimer) 3.63 [facility] LancasterPdpmwckCQMELTIUPE6670-17-96 09:29:00 Test Item Value Reference Range Interpretation Comments Segs (test code = Segs) 74.8 45.0-75.0 [place] 247202-07-19 09:29:00 Test Item Value Reference Range Interpretation Comments Lymphocytes (test code = Lymphocytes) 15.5 20.0-40.0 [facility] LancasterJcmdfbcCSWORIDHIH7305-73-14 09:29:00 Test Item Value Reference Range Interpretation Comments Monocytes (test code = Monocytes) 9.5 2.0-12.0 [facility] LancasterFqafciyYTGNFJCPJK5016-44-79 09:29:00 Test Item Value Reference Range Interpretation Comments Basophils (test code = 0.2 See_Comment [Aut omated message] The Basophils) system which ge nerated this result tra nsmitted reference range : <=1.0. The reference r samantha was not used to int erpret this result as normal/abnormal . [facility] LancasterMfbrxdxUNKDSJOOLM0495-86-17 09:29:00 Test Item Value Reference Range Interpretation Comments Neutrophils # (test code = Neutrophils 3.5 1.5-8.1 #) [facility] LancasterNmiqewgNQLKNLQPUZ9944-24-32 09:29:00 Test Item Value Reference Range Interpretation Comments Lymphocytes # (test code = Lymphocytes 0.7 1.0-5.5 #) [facility] LancasterUbdzlaaMYOYMIPBON0058-87-08 09:29:00 Test Item Value Reference Range Interpretation Comments Monocytes # (test code 0.4 See_Comment [Aut omated message] The = Monocytes #) system which generated this result tra nsmitted reference range : <=0.8. The reference r samantha was not used to int erpret this result as normal/abnormal . [facility] LancasterCzlfmrbMCBJSULQXU4255-99-91 09:29:00 Test Item Value Reference Range Interpretation Comments Macrocyte (test code = 1+ *ABN*(12/16/21 Macrocyte) 4:29 AM) [facility] CenterUliwtumWDGJAXDSYQ9540-59-74 09:29:00 Test Item Value Reference Range Interpretation Comments C-REACTIVE PROTEIN (test code = 19.0 C-REACTIVE PROTEIN) [facility] CenterRpqzofdHEDPWCDNRS5084-17-47 02:28:00 Test Item Value Reference Range Interpretation Comments Hep Bs Ag (test code Negative *NA*(12/15/21 = Hep Bs Ag) 9:28 PM) [facility] CenterNpjlycsLPDVCEAQBO5646-54-33 02:28:00 Test Item Value Reference Range Interpretation Comments Hep Bs Ag (test code Negative *NA*(12/15/21 = Hep Bs Ag) 9:28 PM) [facility] HpsithoTTEMMNIHTZ7895-70-01 02:28:00 Test Item Value Reference Range Interpretation Comments Hep Bs Ag (test code Negative *NA*(12/15/21 = Hep Bs Ag) 9:28 PM) [facility] JqlkapxXHHNLTUHRQ5125-61-81 02:28:00 Test Item Value Reference Range Interpretation Comments Hep Bs Ag (test code Negative *NA*(12/15/21 = Hep Bs Ag) 9:28 PM) [facility] MfogwmnRJSBSLWBZF6385-59-64 02:28:00 Test Item Value Reference Range Interpretation Comments Hep Bs Ag (test code Negative *NA*(12/15/21 = Hep Bs Ag) 9:28 PM) [facility] XczmcrnCZJOJDGHDS1898-68-00 02:28:00 Test Item Value Reference Range Interpretation Comments Hep Bs Ag (test code Negative *NA*(12/15/21 = Hep Bs Ag) 9:28 PM) [facility] Imfrda0299-87-02 17:16:00 Test Item Value Reference Range Interpretation Comments Gram Stain Report Gram Stain Performed By: (test code = Gram [facility] Stain Report) [facility] Respiratory w/Gram [id number] 17:16:00 Test Item Value Reference Range Interpretation Comments Culture: Respiratory Moderate Yeast Normal w/Gram Stain (test code Respiratory Lyndsay = Culture: Respiratory Isolated w/Gram Stain) [facility] Kdicvd3616-60-48 17:16:00 Test Item Value Reference Range Interpretation Comments Gram Stain Report Gram Stain Performed By: (test code = [facility] Stain Report) [facility]: Respiratory w/Gram [id number] 17:16:00 Test Item Value Reference Range Interpretation Comments Culture: Respiratory Moderate Yeast Normal w/Gram Stain (test code Respiratory Lyndsay = Culture: Respiratory Isolated w/Gram Stain) [facility] Xekrjt7433-29-43 17:16:00 Test Item Value Reference Range Interpretation Comments Gram Stain Report Gram Stain Performed By: (test code = Gram [facility] Stain Report) [facility]: Respiratory w/Gram Sawjn5051-66-06 17:16:00 Test Item Value Reference Range Interpretation Comments Culture: Respiratory Moderate Yeast Normal w/Gram Stain (test code Respiratory Lyndsay = Culture: Respiratory Isolated w/Gram Stain) [facility] Qwtzvm7254-12-73 17:16:00 Test Item Value Reference Range Interpretation Comments Gram Stain Report Gram Stain Performed By: (test code = Gram [facility] Stain Report) [facility]: Respiratory w/Gram [id number] 17:16:00 Test Item Value Reference Range Interpretation Comments Culture: Respiratory Moderate Yeast Normal w/Gram Stain (test code Respiratory Lyndsay = Culture: Respiratory Isolated w/Gram Stain) [facility] Wmshut9289-64-78 17:16:00 Test Item Value Reference Range Interpretation Comments Gram Stain Report Gram Stain Performed By: (test code = [facility] Stain Report) [facility]: Respiratory w/Gram Eborf7579-48-14 17:16:00 Test Item Value Reference Range Interpretation Comments Culture: Respiratory Moderate Yeast Normal w/Gram Stain (test code Respiratory Lyndsay = Culture: Respiratory Isolated w/Gram Stain) [facility] Tmgsht6372-26-04 17:16:00 Test Item Value Reference Range Interpretation Comments Gram Stain Report Gram Stain Performed By: (test code = Gram [facility] Stain Report) [facility]: Respiratory w/Gram Iysmv4593-54-04 17:16:00 Test Item Value Reference Range Interpretation Comments Culture: Respiratory Moderate Yeast Normal w/Gram Stain (test code Respiratory Lyndsay = Culture: Respiratory Isolated w/Gram Stain) [facility] [id number] 09:04:00 Test Item Value Reference Range Interpretation Comments Glucose Lvl (test code = Glucose Lvl) 59 70-99 [facility] CenterSpe[facility] [id number] 09:04:00 Test Item Value Reference Range Interpretation Comments BUN (test code = BUN) 41 7-22 [facility]villeannCHEM [id number] 09:04:00 Test Item Value Reference Range Interpretation Comments Creatinine Lvl (test code = Creatinine 7.00 0.50-1.40 Lvl) [facility] [id number] 09:04:00 Test Item Value Reference Range Interpretation Comments Sodium Lvl (test code = Sodium Lvl) 134 135-145 [facility] [id number] 09:04:00 Test Item Value Reference Range Interpretation Comments Potassium Lvl (test code = Potassium 4.0 3.5-5.1 Lvl) [place] 378062-07-18 09:04:00 Test Item Value Reference Range Interpretation Comments Chloride Lvl (test code = Chloride Lvl) 102 95-109 [place] 378062-07-18 09:04:00 Test Item Value Reference Range Interpretation Comments CO2 (test code = CO2) 25 24-32 [place] 378062-07-18 09:04:00 Test Item Value Reference Range Interpretation Comments Calcium Lvl (test code = Calcium Lvl) 9.1 8.5-10.5 [facility] [place]villeClickingHouseBRY[place] 57145DMIQX8069-06-29 09:04:00 Test Item Value Reference Range Interpretation Comments Total Protein (test code = Total 6.2 6.4-8.4 Protein) [place] 378062-07-18 09:04:00 Test Item Value Reference Range Interpretation Comments Albumin Lvl (test code = Albumin Lvl) 2.8 3.5-5.0 [facility] [id number] 09:04:00 Test Item Value Reference Range Interpretation Comments ALT (test code = ALT) 78 See_Comment [Auto mated message] The system which ge nerated this result transmit swathi reference range : <=65. The reference range was not used to interpr et this result as deny l/abnormal. [facility] CenterSpe[facility] Kingdom [id number] 09:04:00 Test Item Value Reference Range Interpretation Comments AST (test code = AST) 117 See_Comment [Auto mated message] The system which ge nerated this result transmit swathi reference range : <=37. The reference range was not used to interpr et this result as deny l/abnormal. [place] 378062-07-18 09:04:00 Test Item Value Reference Range Interpretation Comments Alk Phos (test code = Alk Phos) 251 39-136 [facility] Center[facility] [id number] 09:04:00 Test Item Value Reference Range Interpretation Comments Bili Total (test code = Bili Total) 0.9 0.2-1.3 [place] 378062-07-18 09:04:00 Test Item Value Reference Range Interpretation Comments AGAP (test code = AGAP) 11.0 10.0-20.0 [facility] [id number] 09:04:00 Test Item Value Reference Range Interpretation Comments B/C Ratio (test code = B/C Ratio) 6 1 6-25 [place] 378062-07-18 09:04:00 Test Item Value Reference Range Interpretation Comments Globulin (test code = Globulin) 3.4 2.7-4.2 [facility]2022-07-18 09:04:00 Test Item Value Reference Range Interpretation Comments A/G Ratio (test code = A/G Ratio) 0.8 1 0.7-1.6 [facility]2022-07-18 09:04:00 Test Item Value Reference Range Interpretation Comments eGFR (test code = eGFR) 8 [place] 247202-07-18 09:04:00 Test Item Value Reference Range Interpretation Comments D-Dimer (test code = D-Dimer) 3.03 [place] 247202-07-18 09:04:00 Test Item Value Reference Range Interpretation Comments WBC (test code = WBC) 3.6 3.7-10.4 [place] 247202-07-18 09:04:00 Test Item Value Reference Range Interpretation Comments RBC (test code = RBC) 2.07 4.70-6.10 [place] 247202-07-18 09:04:00 Test Item Value Reference Range Interpretation Comments Hgb (test code = Hgb) 7.5 14.0-18.0 [place] 247202-07-18 09:04:00 Test Item Value Reference Range Interpretation Comments Hct (test code = Hct) 22.0 42.0-54.0 [place] 247202-07-18 09:04:00 Test Item Value Reference Range Interpretation Comments MCV (test code = MCV) 106.3 80.0-94.0 [place] 247202-07-18 09:04:00 Test Item Value Reference Range Interpretation Comments MCH (test code = MCH) 36.1 pg 27.0-31.0 [place] 247202-07-18 09:04:00 Test Item Value Reference Range Interpretation Comments MCHC (test code = MCHC) 33.9 32.0-36.0 [place] 247202-07-18 09:04:00 Test Item Value Reference Range Interpretation Comments RDW (test code = RDW) 23.9 11.5-14.5 [place] 247202-07-18 09:04:00 Test Item Value Reference Range Interpretation Comments Platelet (test code = Platelet) 133 133-450 [place] 247202-07-18 09:04:00 Test Item Value Reference Range Interpretation Comments MPV (test code = MPV) 8.1 7.4-10.4 [place] 247202-07-18 09:04:00 Test Item Value Reference Range Interpretation Comments Segs (test code = Segs) 60.8 45.0-75.0 [place] 247202-07-18 09:04:00 Test Item Value Reference Range Interpretation Comments Lymphocytes (test code = Lymphocytes) 22.3 20.0-40.0 [place] 247202-07-18 09:04:00 Test Item Value Reference Range Interpretation Comments Monocytes (test code = Monocytes) 13.9 2.0-12.0 [place] 247202-07-18 09:04:00 Test Item Value Reference Range Interpretation Comments Eosinophils (test code = 2.6 See_Comment [A utomated message] The Eosinophils) system which ge nerated this result tra nsmitted reference range : <=4.0. The reference r samantha was not used to int erpret this result as normal/abnormal . [facility] LancasterCzbjxftJFPZWAVZJL0342-90-84 09:04:00 Test Item Value Reference Range Interpretation Comments Basophils (test code = 0.4 See_Comment [Aut omated message] The Basophils) system which ge nerated this result tra nsmitted reference range : <=1.0. The reference r samantha was not used to int erpret this result as normal/abnormal . [place] 247202-07-18 09:04:00 Test Item Value Reference Range Interpretation Comments Neutrophils # (test code = Neutrophils 2.2 1.5-8.1 #) [place] 247202-07-18 09:04:00 Test Item Value Reference Range Interpretation Comments Lymphocytes # (test code = Lymphocytes 0.8 1.0-5.5 #) [place] 247202-07-18 09:04:00 Test Item Value Reference Range Interpretation Comments Monocytes # (test code 0.5 See_Comment [Aut omated message] The = Monocytes #) system which generated this result tra nsmitted reference range : <=0.8. The reference r samantha was not used to int erpret this result as normal/abnormal . [facility] LancasterEmgpckeJDSAEIMQIL0678-25-18 09:04:00 Test Item Value Reference Range Interpretation Comments Eosinophils # (test code 0.1 See_Comment [A utomated message] The = Eosinophils #) system whic h generated this result tra nsmitted reference range : <=0.5. The reference r samantha was not used to int erpret this result as normal/abnormal . [place] 247202-07-18 09:04:00 Test Item Value Reference Range Interpretation Comments Macrocyte (test code = 1+ *ABN*(12/15/21 Macrocyte) 4:04 AM) [facility] CenterSqggffrNGFKIIGGIL0932-95-22 09:04:00 Test Item Value Reference Range Interpretation Comments C-REACTIVE PROTEIN (test code = 25.1 C-REACTIVE PROTEIN) [facility] CenterNjvcdonBEZLNSHFGN3566-02-47 09:04:00 Test Item Value Reference Range Interpretation Comments Vanco Lvl (test code = Vanco Lvl) 15.2 [facility] [place] [id number] 09:04:00 Test Item Value Reference Range Interpretation Comments Glucose Lvl (test code = Glucose Lvl) 59 70-99 [facility] CenterSpe[facility] [id number] 09:04:00 Test Item Value Reference Range Interpretation Comments BUN (test code = BUN) 41 7-22 [facility] [place] [id number] 09:04:00 Test Item Value Reference Range Interpretation Comments Creatinine Lvl (test code = Creatinine 7.00 0.50-1.40 Lvl) [facility] CenterSpe[facility] [id number] 09:04:00 Test Item Value Reference Range Interpretation Comments Sodium Lvl (test code = Sodium Lvl) 134 135-145 [facility] [place] [id number] 09:04:00 Test Item Value Reference Range Interpretation Comments Potassium Lvl (test code = Potassium 4.0 3.5-5.1 Lvl) [facility] [place] [id number] 09:04:00 Test Item Value Reference Range Interpretation Comments Chloride Lvl (test code = Chloride Lvl) 102 95-109 [facility] [place] [id number] 09:04:00 Test Item Value Reference Range Interpretation Comments CO2 (test code = CO2) 25 24-32 [place] 378062-07-18 09:04:00 Test Item Value Reference Range Interpretation Comments Calcium Lvl (test code = Calcium Lvl) 9.1 8.5-10.5 [place] 378062-07-18 09:04:00 Test Item Value Reference Range Interpretation Comments Total Protein (test code = Total 6.2 6.4-8.4 Protein) [place] 378062-07-18 09:04:00 Test Item Value Reference Range Interpretation Comments Albumin Lvl (test code = Albumin Lvl) 2.8 3.5-5.0 [place] 378062-07-18 09:04:00 Test Item Value Reference Range Interpretation Comments ALT (test code = ALT) 78 See_Comment [Auto mated message] The system which ge nerated this result transmit swathi reference range : <=65. The reference range was not used to interpr et this result as deny l/abnormal. [place] 378062-07-18 09:04:00 Test Item Value Reference Range Interpretation Comments AST (test code = AST) 117 See_Comment [Auto mated message] The system which ge nerated this result transmit swathi reference range : <=37. The reference range was not used to interpr et this result as deny l/abnormal. [place] 378062-07-18 09:04:00 Test Item Value Reference Range Interpretation Comments Alk Phos (test code = Alk Phos) 251 39-136 [facility] [id number] 09:04:00 Test Item Value Reference Range Interpretation Comments Bili Total (test code = Bili Total) 0.9 0.2-1.3 [facility] [id number] 09:04:00 Test Item Value Reference Range Interpretation Comments AGAP (test code = AGAP) 11.0 10.0-20.0 [facility] [id number] 09:04:00 Test Item Value Reference Range Interpretation Comments B/C Ratio (test code = B/C Ratio) 6 1 6-25 [facility] [id number] 09:04:00 Test Item Value Reference Range Interpretation Comments Globulin (test code = Globulin) 3.4 2.7-4.2 [facility] [id number] 09:04:00 Test Item Value Reference Range Interpretation Comments A/G Ratio (test code = A/G Ratio) 0.8 1 0.7-1.6 [facility]2022-07-18 09:04:00 Test Item Value Reference Range Interpretation Comments eGFR (test code = eGFR) 8 [facility]GjjeklnLQCCDOIGSB7310-06-[facility] 09:04:00 Test Item Value Reference Range Interpretation Comments D-Dimer (test code = D-Dimer) 3.03 [place] 247202-07-18 09:04:00 Test Item Value Reference Range Interpretation Comments WBC (test code = WBC) 3.6 3.7-10.4 [place] 247202-07-18 09:04:00 Test Item Value Reference Range Interpretation Comments RBC (test code = RBC) 2.07 4.70-6.10 [place] 247202-07-18 09:04:00 Test Item Value Reference Range Interpretation Comments Hgb (test code = Hgb) 7.5 14.0-18.0 [place] 247202-07-18 09:04:00 Test Item Value Reference Range Interpretation Comments Hct (test code = Hct) 22.0 42.0-54.0 [facility] LancasterJdfwxwxPAYGEPJMZX3587-17-96 09:04:00 Test Item Value Reference Range Interpretation Comments MCV (test code = MCV) 106.3 80.0-94.0 [place] 247202-07-18 09:04:00 Test Item Value Reference Range Interpretation Comments MCH (test code = MCH) 36.1 pg 27.0-31.0 [facility] LancasterOkdxpwkQNZAVAHXDO1879-08-15 09:04:00 Test Item Value Reference Range Interpretation Comments MCHC (test code = MCHC) 33.9 32.0-36.0 [place] 247202-07-18 09:04:00 Test Item Value Reference Range Interpretation Comments RDW (test code = RDW) 23.9 11.5-14.5 [place] 247202-07-18 09:04:00 Test Item Value Reference Range Interpretation Comments Platelet (test code = Platelet) 133 133-450 [facility] LancasterWaxtytyGAGCDNIIVY7229-96-36 09:04:00 Test Item Value Reference Range Interpretation Comments MPV (test code = MPV) 8.1 7.4-10.4 [place] 247202-07-18 09:04:00 Test Item Value Reference Range Interpretation Comments Segs (test code = Segs) 60.8 45.0-75.0 [place] 247202-07-18 09:04:00 Test Item Value Reference Range Interpretation Comments Lymphocytes (test code = Lymphocytes) 22.3 20.0-40.0 [place] 247202-07-18 09:04:00 Test Item Value Reference Range Interpretation Comments Monocytes (test code = Monocytes) 13.9 2.0-12.0 [place] 247202-07-18 09:04:00 Test Item Value Reference Range Interpretation Comments Eosinophils (test code = 2.6 See_Comment [A utomated message] The Eosinophils) system which ge nerated this result tra nsmitted reference range : <=4.0. The reference r samantha was not used to int erpret this result as normal/abnormal . [place] 247202-07-18 09:04:00 Test Item Value Reference Range Interpretation Comments Basophils (test code = 0.4 See_Comment [Aut omated message] The Basophils) system which ge nerated this result tra nsmitted reference range : <=1.0. The reference r samantha was not used to int erpret this result as normal/abnormal . [facility] LancasterGxtkyeiBUBAELUMRO7190-70-72 09:04:00 Test Item Value Reference Range Interpretation Comments Neutrophils # (test code = Neutrophils 2.2 1.5-8.1 #) [facility] LancasterMasonoeRMPNPHJKCT1924-46-25 09:04:00 Test Item Value Reference Range Interpretation Comments Lymphocytes # (test code = Lymphocytes 0.8 1.0-5.5 #) [place] [address]-07-18 09:04:00 Test Item Value Reference Range Interpretation Comments Monocytes # (test code 0.5 See_Comment [Aut omated message] The = Monocytes #) system which generated this result tra nsmitted reference range : <=0.8. The reference r samantha was not used to int erpret this result as normal/abnormal . [place] 247202-07-18 09:04:00 Test Item Value Reference Range Interpretation Comments Eosinophils # (test code 0.1 See_Comment [A utomated message] The = Eosinophils #) system whic h generated this result tra nsmitted reference range : <=0.5. The reference r samantha was not used to int erpret this result as normal/abnormal . [facility]ah[facility]lsCNYMNNASJA8252-[facility]-07 09:04:00 Test Item Value Reference Range Interpretation Comments Macrocyte (test code = 1+ *ABN*(12/15/21 Macrocyte) 4:04 AM) [facility] CenterJpyfpcdUZYKNUMZIB2776-62-70 09:04:00 Test Item Value Reference Range Interpretation Comments C-REACTIVE PROTEIN (test code = 25.1 C-REACTIVE PROTEIN) [facility] CenterElsmhguFMBIZPNNAB1304-43-73 09:04:00 Test Item Value Reference Range Interpretation Comments Vanco Lvl (test code = Vanco Lvl) 15.2 [facility] IROCKE [id number] 09:04:00 Test Item Value Reference Range Interpretation Comments Glucose Lvl (test code = Glucose Lvl) 59 70-99 [facility] [place] [id number] 09:04:00 Test Item Value Reference Range Interpretation Comments BUN (test code = BUN) 41 7-22 [facility] [place] [id number] 09:04:00 Test Item Value Reference Range Interpretation Comments Creatinine Lvl (test code = Creatinine 7.00 0.50-1.40 Lvl) [facility] [place] [id number] 09:04:00 Test Item Value Reference Range Interpretation Comments Sodium Lvl (test code = Sodium Lvl) 134 135-145 [facility] [place] [id number] 09:04:00 Test Item Value Reference Range Interpretation Comments Potassium Lvl (test code = Potassium 4.0 3.5-5.1 Lvl) [facility] [place] [id number] 09:04:00 Test Item Value Reference Range Interpretation Comments Chloride Lvl (test code = Chloride Lvl) 102 95-109 [facility] [place] [id number] 09:04:00 Test Item Value Reference Range Interpretation Comments CO2 (test code = CO2) 25 24-32 [facility] [place] [id number] 09:04:00 Test Item Value Reference Range Interpretation Comments Calcium Lvl (test code = Calcium Lvl) 9.1 8.5-10.5 [place] [address]-07-18 09:04:00 Test Item Value Reference Range Interpretation Comments Total Protein (test code = Total 6.2 6.4-8.4 Protein) [place] 378062-07-18 09:04:00 Test Item Value Reference Range Interpretation Comments Albumin Lvl (test code = Albumin Lvl) 2.8 3.5-5.0 [place] 378062-07-18 09:04:00 Test Item Value Reference Range Interpretation Comments ALT (test code = ALT) 78 See_Comment [Auto mated message] The system which ge nerated this result transmit swathi reference range : <=65. The reference range was not used to interpr et this result as deny l/abnormal. [facility] [id number] 09:04:00 Test Item Value Reference Range Interpretation Comments AST (test code = AST) 117 See_Comment [Auto mated message] The system which ge nerated this result transmit swathi reference range : <=37. The reference range was not used to interpr et this result as deny l/abnormal. [place] 378062-07-18 09:04:00 Test Item Value Reference Range Interpretation Comments Alk Phos (test code = Alk Phos) 251 39-136 [facility] [place] [id number] 09:04:00 Test Item Value Reference Range Interpretation Comments Bili Total (test code = Bili Total) 0.9 0.2-1.3 [facility] [id number] 09:04:00 Test Item Value Reference Range Interpretation Comments AGAP (test code = AGAP) 11.0 10.0-20.0 [facility] [id number] 09:04:00 Test Item Value Reference Range Interpretation Comments B/C Ratio (test code = B/C Ratio) 6 1 6-25 [facility] [id number] 09:04:00 Test Item Value Reference Range Interpretation Comments Globulin (test code = Globulin) 3.4 2.7-4.2 [facility] [id number] 09:04:00 Test Item Value Reference Range Interpretation Comments Glucose Lvl (test code = Glucose Lvl) 59 70-99 [facility] [place] [id number] 09:04:00 Test Item Value Reference Range Interpretation Comments BUN (test code = BUN) 41 7-22 [place] 378062-07-18 09:04:00 Test Item Value Reference Range Interpretation Comments Creatinine Lvl (test code = Creatinine 7.00 0.50-1.40 Lvl) [place] 378062-07-18 09:04:00 Test Item Value Reference Range Interpretation Comments Sodium Lvl (test code = Sodium Lvl) 134 135-145 [place] 378062-07-18 09:04:00 Test Item Value Reference Range Interpretation Comments Potassium Lvl (test code = Potassium 4.0 3.5-5.1 Lvl) [place] 378062-07-18 09:04:00 Test Item Value Reference Range Interpretation Comments Chloride Lvl (test code = Chloride Lvl) 102 95-109 [place] 378062-07-18 09:04:00 Test Item Value Reference Range Interpretation Comments CO2 (test code = CO2) 25 24-32 [place] 378062-07-18 09:04:00 Test Item Value Reference Range Interpretation Comments Calcium Lvl (test code = Calcium Lvl) 9.1 8.5-10.5 [place] 378062-07-18 09:04:00 Test Item Value Reference Range Interpretation Comments Total Protein (test code = Total 6.2 6.4-8.4 Protein) [place] 378062-07-18 09:04:00 Test Item Value Reference Range Interpretation Comments A/G Ratio (test code = A/G Ratio) 0.8 1 0.7-1.6 [place] [address]-07-18 09:04:00 Test Item Value Reference Range Interpretation Comments Albumin Lvl (test code = Albumin Lvl) 2.8 3.5-5.0 [place] [address]-07-18 09:04:00 Test Item Value Reference Range Interpretation Comments ALT (test code = ALT) 78 See_Comment [Auto mated message] The system which ge nerated this result transmit swathi reference range : <=65. The reference range was not used to interpr et this result as deny l/abnormal. [place] 378062-07-18 09:04:00 Test Item Value Reference Range Interpretation Comments AST (test code = AST) 117 See_Comment [Auto mated message] The system which ge nerated this result transmit swathi reference range : <=37. The reference range was not used to interpr et this result as deny l/abnormal. [facility] [id number] 09:04:00 Test Item Value Reference Range Interpretation Comments Alk Phos (test code = Alk Phos) 251 39-136 [place] 378062-07-18 09:04:00 Test Item Value Reference Range Interpretation Comments Bili Total (test code = Bili Total) 0.9 0.2-1.3 [place] 378062-07-18 09:04:00 Test Item Value Reference Range Interpretation Comments AGAP (test code = AGAP) 11.0 10.0-20.0 [facility] [id number] 09:04:00 Test Item Value Reference Range Interpretation Comments B/C Ratio (test code = B/C Ratio) 6 1 6-25 [place] 378062-07-18 09:04:00 Test Item Value Reference Range Interpretation Comments Globulin (test code = Globulin) 3.4 2.7-4.2 [facility] [id number] 09:04:00 Test Item Value Reference Range Interpretation Comments A/G Ratio (test code = A/G Ratio) 0.8 1 0.7-1.6 [place] 378062-07-18 09:04:00 Test Item Value Reference Range Interpretation Comments eGFR (test code = eGFR) 8 [facility] [id number] 09:04:00 Test Item Value Reference Range Interpretation Comments eGFR (test code = eGFR) 8 [place] 247202-07-18 09:04:00 Test Item Value Reference Range Interpretation Comments D-Dimer (test code = D-Dimer) 3.03 [facility] CenterJwzagndZQCLJBGJFJ3177-92-76 09:04:00 Test Item Value Reference Range Interpretation Comments WBC (test code = WBC) 3.6 3.7-10.4 [place] 247202-07-18 09:04:00 Test Item Value Reference Range Interpretation Comments RBC (test code = RBC) 2.07 4.70-6.10 [place] [address]-07-18 09:04:00 Test Item Value Reference Range Interpretation Comments Hgb (test code = Hgb) 7.5 14.0-18.0 [facility] LancasterAbxzljfGXWWMXIWNT0293-92-58 09:04:00 Test Item Value Reference Range Interpretation Comments Hct (test code = Hct) 22.0 42.0-54.0 [facility] LancasterWqvkjxsGHMSBCQPYI0192-06-93 09:04:00 Test Item Value Reference Range Interpretation Comments MCV (test code = MCV) 106.3 80.0-94.0 [facility] LancasterLlksreyWVOSCQRMGM7222-00-26 09:04:00 Test Item Value Reference Range Interpretation Comments MCH (test code = MCH) 36.1 pg 27.0-31.0 [facility] LancasterGlhelrdGGQCJJONXJ0569-06-58 09:04:00 Test Item Value Reference Range Interpretation Comments MCHC (test code = MCHC) 33.9 32.0-36.0 [facility] LancasterTkdtsjjFDZXBYTYRU6237-17-95 09:04:00 Test Item Value Reference Range Interpretation Comments RDW (test code = RDW) 23.9 11.5-14.5 [facility] LancasterXtdamcnWBZKNNAVIT2470-83-96 09:04:00 Test Item Value Reference Range Interpretation Comments Platelet (test code = Platelet) 133 133-450 [facility] LancasterSnjkhheBIETXWXOOB8129-80-57 09:04:00 Test Item Value Reference Range Interpretation Comments D-Dimer (test code = D-Dimer) 3.03 [place] 247202-07-18 09:04:00 Test Item Value Reference Range Interpretation Comments MPV (test code = MPV) 8.1 7.4-10.4 [place] 247202-07-18 09:04:00 Test Item Value Reference Range Interpretation Comments Segs (test code = Segs) 60.8 45.0-75.0 [place] 247202-07-18 09:04:00 Test Item Value Reference Range Interpretation Comments Lymphocytes (test code = Lymphocytes) 22.3 20.0-40.0 [place] 247202-07-18 09:04:00 Test Item Value Reference Range Interpretation Comments Monocytes (test code = Monocytes) 13.9 2.0-12.0 [place] 247202-07-18 09:04:00 Test Item Value Reference Range Interpretation Comments Eosinophils (test code = 2.6 See_Comment [A utomated message] The Eosinophils) system which ge nerated this result tra nsmitted reference range : <=4.0. The reference r samantha was not used to int erpret this result as normal/abnormal . [facility] LancasterQdcwlbxQKBALUPOVC3611-18-87 09:04:00 Test Item Value Reference Range Interpretation Comments Basophils (test code = 0.4 See_Comment [Aut omated message] The Basophils) system which ge nerated this result tra nsmitted reference range : <=1.0. The reference r samantha was not used to int erpret this result as normal/abnormal . [facility] LancasterQkpdovzQMERAJHXJW4788-72-47 09:04:00 Test Item Value Reference Range Interpretation Comments Neutrophils # (test code = Neutrophils 2.2 1.5-8.1 #) [facility] LancasterStskrzrIXHKQCOJYJ9897-06-98 09:04:00 Test Item Value Reference Range Interpretation Comments Lymphocytes # (test code = Lymphocytes 0.8 1.0-5.5 #) [facility] LancasterIxcznaeWUQIYDUIZZ1461-32-58 09:04:00 Test Item Value Reference Range Interpretation Comments Monocytes # (test code 0.5 See_Comment [Aut omated message] The = Monocytes #) system which generated this result tra nsmitted reference range : <=0.8. The reference r samantha was not used to int erpret this result as normal/abnormal . [facility] LancasterEwipgbtRCVGMIPPCF1199-98-08 09:04:00 Test Item Value Reference Range Interpretation Comments Eosinophils # (test code 0.1 See_Comment [A utomated message] The = Eosinophils #) system whic h generated this result tra nsmitted reference range : <=0.5. The reference r samantha was not used to int erpret this result as normal/abnormal . [facility] LancasterYtxkkikUUVWBYTUVA8950-77-38 09:04:00 Test Item Value Reference Range Interpretation Comments WBC (test code = WBC) 3.6 3.7-10.4 [facility] LancasterYrzviqkMMMFRMMHBP7747-72-66 09:04:00 Test Item Value Reference Range Interpretation Comments Macrocyte (test code = 1+ *ABN*(12/15/21 Macrocyte) 4:04 AM) [facility] CenterHoqgdbfWALMWXBPBV4016-03-94 09:04:00 Test Item Value Reference Range Interpretation Comments C-REACTIVE PROTEIN (test code = 25.1 C-REACTIVE PROTEIN) [facility] CenterAmwanmhLNWOYSBSPJ9526-74-81 09:04:00 Test Item Value Reference Range Interpretation Comments Vanco Lvl (test code = Vanco Lvl) 15.2 [facility] LancasterUbllnitIBTEGDPTJT5741-15-19 09:04:00 Test Item Value Reference Range Interpretation Comments RBC (test code = RBC) 2.07 4.70-6.10 [facility] LancasterJjdfupuSNTTMRDVYX5943-07-86 09:04:00 Test Item Value Reference Range Interpretation Comments Hgb (test code = Hgb) 7.5 14.0-18.0 [facility] LancasterSsussheOOPKECWSKM3190-36-83 09:04:00 Test Item Value Reference Range Interpretation Comments Hct (test code = Hct) 22.0 42.0-54.0 [facility] LancasterBoklpvqBZCZKPWROF4444-63-05 09:04:00 Test Item Value Reference Range Interpretation Comments MCV (test code = MCV) 106.3 80.0-94.0 [facility] LancasterDhkgabeLDKBQRLYNQ7523-14-66 09:04:00 Test Item Value Reference Range Interpretation Comments MCH (test code = MCH) 36.1 pg 27.0-31.0 [facility] LancasterUymfhmaMUTOZSPXKP5278-42-12 09:04:00 Test Item Value Reference Range Interpretation Comments MCHC (test code = MCHC) 33.9 32.0-36.0 [facility] LancasterRpaiffbACZMTXYVEA8814-32-68 09:04:00 Test Item Value Reference Range Interpretation Comments RDW (test code = RDW) 23.9 11.5-14.5 [facility] LancasterQemmfmaYQXAUUIUZL6851-18-45 09:04:00 Test Item Value Reference Range Interpretation Comments Platelet (test code = Platelet) 133 133-450 [facility] LancasterEuvbnakJTEJRUFNSQ7452-96-21 09:04:00 Test Item Value Reference Range Interpretation Comments MPV (test code = MPV) 8.1 7.4-10.4 [facility] LancasterJyjpdmwEVROMYIRHG8249-51-54 09:04:00 Test Item Value Reference Range Interpretation Comments Segs (test code = Segs) 60.8 45.0-75.0 [facility] LancasterXurdnfjBPXVJMUZJA2017-93-32 09:04:00 Test Item Value Reference Range Interpretation Comments Lymphocytes (test code = Lymphocytes) 22.3 20.0-40.0 [facility] LancasterJrxpkrdNGADKGDVTW9497-71-33 09:04:00 Test Item Value Reference Range Interpretation Comments Monocytes (test code = Monocytes) 13.9 2.0-12.0 [facility] LancasterMwkvureKCDIXMEFJM6164-81-97 09:04:00 Test Item Value Reference Range Interpretation Comments Eosinophils (test code = 2.6 See_Comment [A utomated message] The Eosinophils) system which ge nerated this result tra nsmitted reference range : <=4.0. The reference r samantha was not used to int erpret this result as normal/abnormal . [facility] LancasterKynowthJNUHOTNPVO4328-70-04 09:04:00 Test Item Value Reference Range Interpretation Comments Basophils (test code = 0.4 See_Comment [Aut omated message] The Basophils) system which ge nerated this result tra nsmitted reference range : <=1.0. The reference r samantha was not used to int erpret this result as normal/abnormal . [facility] LancasterRacjikwGLPJMWEQQZ6705-85-26 09:04:00 Test Item Value Reference Range Interpretation Comments Neutrophils # (test code = Neutrophils 2.2 1.5-8.1 #) [facility] LancasterWktrhbsGOYJPVMBDG7249-48-12 09:04:00 Test Item Value Reference Range Interpretation Comments Lymphocytes # (test code = Lymphocytes 0.8 1.0-5.5 #) [facility] LancasterGjfxqeqEQKCYWBZSI1676-59-58 09:04:00 Test Item Value Reference Range Interpretation Comments Monocytes # (test code 0.5 See_Comment [Aut omated message] The = Monocytes #) system which generated this result tra nsmitted reference range : <=0.8. The reference r samantha was not used to int erpret this result as normal/abnormal . [facility] LancasterKmsjociVBEZBEEXNA7848-42-34 09:04:00 Test Item Value Reference Range Interpretation Comments Eosinophils # (test code 0.1 See_Comment [A utomated message] The = Eosinophils #) system whic h generated this result tra nsmitted reference range : <=0.5. The reference r samantha was not used to int erpret this result as normal/abnormal . [facility] LancasterRvpqnxoXQYEJMHNMJ3234-55-30 09:04:00 Test Item Value Reference Range Interpretation Comments Macrocyte (test code = 1+ *ABN*(12/15/21 Macrocyte) 4:04 AM) [facility] CenterBllpbncGKOFUZANFQ9158-51-65 09:04:00 Test Item Value Reference Range Interpretation Comments C-REACTIVE PROTEIN (test code = 25.1 C-REACTIVE PROTEIN) [facility] CenterYjzoqcsHQWJMTNNYF8998-81-36 09:04:00 Test Item Value Reference Range Interpretation Comments Vanco Lvl (test code = Vanco Lvl) 15.2 [facility]2022-07-18 09:04:00 Test Item Value Reference Range Interpretation Comments Glucose Lvl (test code = Glucose Lvl) 59 70-99 [place] 378062-07-18 09:04:00 Test Item Value Reference Range Interpretation Comments BUN (test code = BUN) 41 7-22 [place] 378062-07-18 09:04:00 Test Item Value Reference Range Interpretation Comments Creatinine Lvl (test code = Creatinine 7.00 0.50-1.40 Lvl) [facility]2022-07-18 09:04:00 Test Item Value Reference Range Interpretation Comments Sodium Lvl (test code = Sodium Lvl) 134 135-145 [place] 378062-07-18 09:04:00 Test Item Value Reference Range Interpretation Comments Potassium Lvl (test code = Potassium 4.0 3.5-5.1 Lvl) [facility]2022-07-18 09:04:00 Test Item Value Reference Range Interpretation Comments Chloride Lvl (test code = Chloride Lvl) 102 95-109 [facility]2022-07-18 09:04:00 Test Item Value Reference Range Interpretation Comments CO2 (test code = CO2) 25 24-32 [place] 378062-07-18 09:04:00 Test Item Value Reference Range Interpretation Comments Calcium Lvl (test code = Calcium Lvl) 9.1 8.5-10.5 [place] 378062-07-18 09:04:00 Test Item Value Reference Range Interpretation Comments Total Protein (test code = Total 6.2 6.4-8.4 Protein) [place] 378062-07-18 09:04:00 Test Item Value Reference Range Interpretation Comments Albumin Lvl (test code = Albumin Lvl) 2.8 3.5-5.0 [place] 378062-07-18 09:04:00 Test Item Value Reference Range Interpretation Comments ALT (test code = ALT) 78 See_Comment [Auto mated message] The system which ge nerated this result transmit swathi reference range : <=65. The reference range was not used to interpr et this result as deny l/abnormal. [facility] [place] VMXCN1581-58-99 09:04:00 Test Item Value Reference Range Interpretation Comments AST (test code = AST) 117 See_Comment [Auto mated message] The system which ge nerated this result transmit swathi reference range : <=37. The reference range was not used to interpr et this result as deny l/abnormal. [facility] [place] PZWGF9182-48-74 09:04:00 Test Item Value Reference Range Interpretation Comments Alk Phos (test code = Alk Phos) 251 39-136 [facility] [place] [id number] 09:04:00 Test Item Value Reference Range Interpretation Comments Bili Total (test code = Bili Total) 0.9 0.2-1.3 [facility] [place] [id number] 09:04:00 Test Item Value Reference Range Interpretation Comments AGAP (test code = AGAP) 11.0 10.0-20.0 [facility] [place] [id number] 09:04:00 Test Item Value Reference Range Interpretation Comments B/C Ratio (test code = B/C Ratio) 6 1 6-25 [facility] [place] [id number] 09:04:00 Test Item Value Reference Range Interpretation Comments Globulin (test code = Globulin) 3.4 2.7-4.2 [facility] [place] [id number] 09:04:00 Test Item Value Reference Range Interpretation Comments A/G Ratio (test code = A/G Ratio) 0.8 1 0.7-1.6 [facility] [place] [id number] 09:04:00 Test Item Value Reference Range Interpretation Comments eGFR (test code = eGFR) 8 [facility] CenterZviskweDPUEYBUYNN9843-83-03 09:04:00 Test Item Value Reference Range Interpretation Comments D-Dimer (test code = D-Dimer) 3.03 [place] 247202-07-18 09:04:00 Test Item Value Reference Range Interpretation Comments WBC (test code = WBC) 3.6 3.7-10.4 [place] 247202-07-18 09:04:00 Test Item Value Reference Range Interpretation Comments RBC (test code = RBC) 2.07 4.70-6.10 [facility] LancasterWybvqihUNXWUFMDCT3508-94-84 09:04:00 Test Item Value Reference Range Interpretation Comments Hgb (test code = Hgb) 7.5 14.0-18.0 [facility] LancasterZgqjytqYOMTZAYISP8379-08-15 09:04:00 Test Item Value Reference Range Interpretation Comments Hct (test code = Hct) 22.0 42.0-54.0 [facility] LancasterDayeettLDBBHMUMAI0736-77-91 09:04:00 Test Item Value Reference Range Interpretation Comments MCV (test code = MCV) 106.3 80.0-94.0 [facility] LancasterJtbnukwPCSTSNBMZB7905-98-23 09:04:00 Test Item Value Reference Range Interpretation Comments MCH (test code = MCH) 36.1 pg 27.0-31.0 [facility] LancasterDrfdkszCIOTQBEQYN0867-34-89 09:04:00 Test Item Value Reference Range Interpretation Comments MCHC (test code = MCHC) 33.9 32.0-36.0 [facility] LancasterTjkgvhlCXHSVMRZID8871-47-60 09:04:00 Test Item Value Reference Range Interpretation Comments RDW (test code = RDW) 23.9 11.5-14.5 [facility] LancasterIyhppewDIRTPXSDXA2066-38-04 09:04:00 Test Item Value Reference Range Interpretation Comments Platelet (test code = Platelet) 133 133-450 [facility] LancasterNrviwofLUZWYZBOPR6405-64-04 09:04:00 Test Item Value Reference Range Interpretation Comments MPV (test code = MPV) 8.1 7.4-10.4 [place] 247202-07-18 09:04:00 Test Item Value Reference Range Interpretation Comments Segs (test code = Segs) 60.8 45.0-75.0 [place] 247202-07-18 09:04:00 Test Item Value Reference Range Interpretation Comments Lymphocytes (test code = Lymphocytes) 22.3 20.0-40.0 [place] 247202-07-18 09:04:00 Test Item Value Reference Range Interpretation Comments Monocytes (test code = Monocytes) 13.9 2.0-12.0 [facility] LancasterVhwabdwCPWDPXRCYZ0898-82-08 09:04:00 Test Item Value Reference Range Interpretation Comments Eosinophils (test code = 2.6 See_Comment [A utomated message] The Eosinophils) system which ge nerated this result tra nsmitted reference range : <=4.0. The reference r samantha was not used to int erpret this result as normal/abnormal . [facility] CenterNfjfbpaOBGHGBKXKN8214-16-83 09:04:00 Test Item Value Reference Range Interpretation Comments Basophils (test code = 0.4 See_Comment [Aut omated message] The Basophils) system which ge nerated this result tra nsmitted reference range : <=1.0. The reference r samantha was not used to int erpret this result as normal/abnormal . [facility] CenterVkkrmnyOYZKRTIDTH1261-00-46 09:04:00 Test Item Value Reference Range Interpretation Comments Neutrophils # (test code = Neutrophils 2.2 1.5-8.1 #) [facility]moamcQHHDSTKORU2887-59-50 09:04:00 Test Item Value Reference Range Interpretation Comments Lymphocytes # (test code = Lymphocytes 0.8 1.0-5.5 #) [facility] CenterUftdnwkGTWVGTEHFS3231-75-57 09:04:00 Test Item Value Reference Range Interpretation Comments Monocytes # (test code 0.5 See_Comment [Aut omated message] The = Monocytes #) system which generated this result tra nsmitted reference range : <=0.8. The reference r samantha was not used to int erpret this result as normal/abnormal . [facility] CenterJrmelgoTQNNBCXJKQ4938-42-91 09:04:00 Test Item Value Reference Range Interpretation Comments Eosinophils # (test code 0.1 See_Comment [A utomated message] The = Eosinophils #) system whic h generated this result tra nsmitted reference range : <=0.5. The reference r samantha was not used to int erpret this result as normal/abnormal . [facility] CenterOhfmazkETPCUMQYLM9965-56-56 09:04:00 Test Item Value Reference Range Interpretation Comments Macrocyte (test code = 1+ *ABN*(12/15/21 Macrocyte) 4:04 AM) [facility] CenterPomlzedKIOZUDMTYL8922-46-08 09:04:00 Test Item Value Reference Range Interpretation Comments C-REACTIVE PROTEIN (test code = 25.1 C-REACTIVE PROTEIN) [facility] CenterUqoewhiILACLEOCTE6256-70-31 09:04:00 Test Item Value Reference Range Interpretation Comments Vanco Lvl (test code = Vanco Lvl) 15.2 [place] 378062-07-18 09:04:00 Test Item Value Reference Range Interpretation Comments Glucose Lvl (test code = Glucose Lvl) 59 70-99 [place] [address]-07-18 09:04:00 Test Item Value Reference Range Interpretation Comments BUN (test code = BUN) 41 7-22 [place] 378062-07-18 09:04:00 Test Item Value Reference Range Interpretation Comments Creatinine Lvl (test code = Creatinine 7.00 0.50-1.40 Lvl) [place] 378062-07-18 09:04:00 Test Item Value Reference Range Interpretation Comments Sodium Lvl (test code = Sodium Lvl) 134 135-145 [place] 378062-07-18 09:04:00 Test Item Value Reference Range Interpretation Comments Potassium Lvl (test code = Potassium 4.0 3.5-5.1 Lvl) [place] 378062-07-18 09:04:00 Test Item Value Reference Range Interpretation Comments Chloride Lvl (test code = Chloride Lvl) 102 95-109 [place] 378062-07-18 09:04:00 Test Item Value Reference Range Interpretation Comments CO2 (test code = CO2) 25 24-32 [place] 378062-07-18 09:04:00 Test Item Value Reference Range Interpretation Comments Calcium Lvl (test code = Calcium Lvl) 9.1 8.5-10.5 [place] 378062-07-18 09:04:00 Test Item Value Reference Range Interpretation Comments Total Protein (test code = Total 6.2 6.4-8.4 Protein) [place] 378062-07-18 09:04:00 Test Item Value Reference Range Interpretation Comments Albumin Lvl (test code = Albumin Lvl) 2.8 3.5-5.0 [place] 378062-07-18 09:04:00 Test Item Value Reference Range Interpretation Comments ALT (test code = ALT) 78 See_Comment [Auto mated message] The system which ge nerated this result transmit swathi reference range : <=65. The reference range was not used to interpr et this result as deny l/abnormal. [place] 378062-07-18 09:04:00 Test Item Value Reference Range Interpretation Comments AST (test code = AST) 117 See_Comment [Auto mated message] The system which ge nerated this result transmit swathi reference range : <=37. The reference range was not used to interpr et this result as deny l/abnormal. [facility] CenterSpeech Kingdom TZNAI6580-07-99 09:04:00 Test Item Value Reference Range Interpretation Comments Alk Phos (test code = Alk Phos) 251 39-136 [facility] [id number] 09:04:00 Test Item Value Reference Range Interpretation Comments Bili Total (test code = Bili Total) 0.9 0.2-1.3 [place] 378062-07-18 09:04:00 Test Item Value Reference Range Interpretation Comments AGAP (test code = AGAP) 11.0 10.0-20.0 [place] 378062-07-18 09:04:00 Test Item Value Reference Range Interpretation Comments B/C Ratio (test code = B/C Ratio) 6 1 6-25 [place] 378062-07-18 09:04:00 Test Item Value Reference Range Interpretation Comments Globulin (test code = Globulin) 3.4 2.7-4.2 [facility] [place] [id number] 09:04:00 Test Item Value Reference Range Interpretation Comments A/G Ratio (test code = A/G Ratio) 0.8 1 0.7-1.6 [place] 378062-07-18 09:04:00 Test Item Value Reference Range Interpretation Comments eGFR (test code = eGFR) 8 [facility] LancasterCulezdzIXLBDYUVHD0160-93-10 09:04:00 Test Item Value Reference Range Interpretation Comments D-Dimer (test code = D-Dimer) 3.03 [place] 247202-07-18 09:04:00 Test Item Value Reference Range Interpretation Comments WBC (test code = WBC) 3.6 3.7-10.4 [place] 247202-07-18 09:04:00 Test Item Value Reference Range Interpretation Comments RBC (test code = RBC) 2.07 4.70-6.10 [place] 247202-07-18 09:04:00 Test Item Value Reference Range Interpretation Comments Hgb (test code = Hgb) 7.5 14.0-18.0 [place] [address]-07-18 09:04:00 Test Item Value Reference Range Interpretation Comments Hct (test code = Hct) 22.0 42.0-54.0 [place] 247202-07-18 09:04:00 Test Item Value Reference Range Interpretation Comments MCV (test code = MCV) 106.3 80.0-94.0 [place] 247202-07-18 09:04:00 Test Item Value Reference Range Interpretation Comments MCH (test code = MCH) 36.1 pg 27.0-31.0 [place] 247202-07-18 09:04:00 Test Item Value Reference Range Interpretation Comments MCHC (test code = MCHC) 33.9 32.0-36.0 [place] 247202-07-18 09:04:00 Test Item Value Reference Range Interpretation Comments RDW (test code = RDW) 23.9 11.5-14.5 [place] 247202-07-18 09:04:00 Test Item Value Reference Range Interpretation Comments Platelet (test code = Platelet) 133 133-450 [facility] LancasterQwcjotrYIBMKLNUQV0668-71-11 09:04:00 Test Item Value Reference Range Interpretation Comments MPV (test code = MPV) 8.1 7.4-10.4 [place] 247202-07-18 09:04:00 Test Item Value Reference Range Interpretation Comments Segs (test code = Segs) 60.8 45.0-75.0 [place] 247202-07-18 09:04:00 Test Item Value Reference Range Interpretation Comments Lymphocytes (test code = Lymphocytes) 22.3 20.0-40.0 [place] 247202-07-18 09:04:00 Test Item Value Reference Range Interpretation Comments Monocytes (test code = Monocytes) 13.9 2.0-12.0 [place] [address]-07-18 09:04:00 Test Item Value Reference Range Interpretation Comments Eosinophils (test code = 2.6 See_Comment [A utomated message] The Eosinophils) system which ge nerated this result tra nsmitted reference range : <=4.0. The reference r samantha was not used to int erpret this result as normal/abnormal . [place] 247202-07-18 09:04:00 Test Item Value Reference Range Interpretation Comments Basophils (test code = 0.4 See_Comment [Aut omated message] The Basophils) system which ge nerated this result tra nsmitted reference range : <=1.0. The reference r samantha was not used to int erpret this result as normal/abnormal . [facility] LancasterJnxfxrzIYSGNKJXCD4858-87-30 09:04:00 Test Item Value Reference Range Interpretation Comments Neutrophils # (test code = Neutrophils 2.2 1.5-8.1 #) [facility] LancasterMqlabwcLVAPGWWIXJ0871-85-93 09:04:00 Test Item Value Reference Range Interpretation Comments Lymphocytes # (test code = Lymphocytes 0.8 1.0-5.5 #) [facility] LancasterRkrqyeuGXNZYBHKZQ0269-42-29 09:04:00 Test Item Value Reference Range Interpretation Comments Monocytes # (test code 0.5 See_Comment [Aut omated message] The = Monocytes #) system which generated this result tra nsmitted reference range : <=0.8. The reference r samantha was not used to int erpret this result as normal/abnormal . [facility] LancasterXfgtyirBOPMOMNOBN2631-61-69 09:04:00 Test Item Value Reference Range Interpretation Comments Eosinophils # (test code 0.1 See_Comment [A utomated message] The = Eosinophils #) system whic h generated this result tra nsmitted reference range : <=0.5. The reference r samantha was not used to int erpret this result as normal/abnormal . [facility] LancasterOwfusmwILSSUHDULY2147-33-45 09:04:00 Test Item Value Reference Range Interpretation Comments Macrocyte (test code = 1+ *ABN*(12/15/21 Macrocyte) 4:04 AM) [facility] CenterGlebgjbANDOTLAJAZ2271-93-97 09:04:00 Test Item Value Reference Range Interpretation Comments C-REACTIVE PROTEIN (test code = 25.1 C-REACTIVE PROTEIN) [facility] CenterZajhlcdUILGMYCREW0241-15-31 09:04:00 Test Item Value Reference Range Interpretation Comments Vanco Lvl (test code = Vanco Lvl) 15.2 [facility] CenterBACTERIAL - [id number] 00:29:00 Test Item Value Reference Range Interpretation Comments MRSA by PCR (test Negative (12/14/21 7:29 code = MRSA by PCR) PM) [facility] CenterBACTERIAL - [id number] 00:29:00 Test Item Value Reference Range Interpretation Comments MRSA by PCR (test Negative (12/14/21 7:29 code = MRSA by PCR) PM) [facility] - [id number] 00:29:00 Test Item Value Reference Range Interpretation Comments MRSA by PCR (test Negative (12/14/21 7:29 code = MRSA by PCR) PM) [facility] - [id number] 00:29:00 Test Item Value Reference Range Interpretation Comments MRSA by PCR (test Negative (12/14/21 7:29 code = MRSA by PCR) PM) [facility] - [id number] 00:29:00 Test Item Value Reference Range Interpretation Comments MRSA by PCR (test Negative (12/14/21 7:29 code = MRSA by PCR) PM) [facility] - [id number] 00:29:00 Test Item Value Reference Range Interpretation Comments MRSA by PCR (test Negative (12/14/21 7:29 code = MRSA by PCR) PM) [facility] [id number] 23:56:00 Test Item Value Reference Range Interpretation Comments Source Respiratory Nasophrngl Swb Panel PCR (test code = *NA*(12/14/21 6:56 PM) Source Respiratory Panel PCR) [facility] [id number] 23:56:00 Test Item Value Reference Range Interpretation Comments Influenza A PCR (test Negative (12/14/21 6:56 code = Influenza A PCR) PM) [facility]KYLE[facility] [id number] 23:56:00 Test Item Value Reference Range Interpretation Comments Influenza B PCR (test Negative (12/14/21 6:56 code = Influenza B PCR) PM) [facility]LE[facility] [id number] 23:56:00 Test Item Value Reference Range Interpretation Comments RSV PCR (test code = Negative (12/14/21 6:56 RSV PCR) PM) [facility] [id number] 23:56:00 Test Item Value Reference Range Interpretation Comments Source Respiratory Nasophrngl Swb Panel PCR (test code = *NA*(12/14/21 6:56 PM) Source Respiratory Panel PCR) [facility] [id number] 23:56:00 Test Item Value Reference Range Interpretation Comments Influenza A PCR (test Negative (12/14/21 6:56 code = Influenza A PCR) PM) [facility] [id number] 23:56:00 Test Item Value Reference Range Interpretation Comments Influenza B PCR (test Negative (12/14/21 6:56 code = Influenza B PCR) PM) [facility] [id number] 23:56:00 Test Item Value Reference Range Interpretation Comments RSV PCR (test code = Negative (12/14/21 6:56 RSV PCR) PM) [facility] [id number] 23:56:00 Test Item Value Reference Range Interpretation Comments Source Respiratory Nasophrngl Swb Panel PCR (test code = *NA*(12/14/21 6:56 PM) Source Respiratory Panel PCR) [facility] [id number] 23:56:00 Test Item Value Reference Range Interpretation Comments Influenza A PCR (test Negative (12/14/21 6:56 code = Influenza A PCR) PM) [facility] [id number] 23:56:00 Test Item Value Reference Range Interpretation Comments Influenza B PCR (test Negative (12/14/21 6:56 code = Influenza B PCR) PM) [facility] [id number] 23:56:00 Test Item Value Reference Range Interpretation Comments RSV PCR (test code = Negative (12/14/21 6:56 RSV PCR) PM) [facility]LE[facility] [id number] 23:56:00 Test Item Value Reference Range Interpretation Comments Source Respiratory Nasophrngl Swb Panel PCR (test code = *NA*(12/14/21 6:56 PM) Source Respiratory Panel PCR) [facility] [id number] 23:56:00 Test Item Value Reference Range Interpretation Comments Influenza A PCR (test Negative (12/14/21 6:56 code = Influenza A PCR) PM) [facility]KYLE[facility] [id number] 23:56:00 Test Item Value Reference Range Interpretation Comments Influenza B PCR (test Negative (12/14/21 6:56 code = Influenza B PCR) PM) [facility] [id number] 23:56:00 Test Item Value Reference Range Interpretation Comments RSV PCR (test code = Negative (12/14/21 6:56 RSV PCR) PM) [facility]LE[facility] [id number] 23:56:00 Test Item Value Reference Range Interpretation Comments Source Respiratory Nasophrngl Swb Panel PCR (test code = *NA*(12/14/21 6:56 PM) Source Respiratory Panel PCR) [facility] [id number] 23:56:00 Test Item Value Reference Range Interpretation Comments Influenza A PCR (test Negative (12/14/21 6:56 code = Influenza A PCR) PM) [facility]KYLE[facility] [id number] 23:56:00 Test Item Value Reference Range Interpretation Comments Influenza B PCR (test Negative (12/14/21 6:56 code = Influenza B PCR) PM) [facility] [id number] 23:56:00 Test Item Value Reference Range Interpretation Comments RSV PCR (test code = Negative (12/14/21 6:56 RSV PCR) PM) [facility]KYLE[facility] [id number] 23:56:00 Test Item Value Reference Range Interpretation Comments Source Respiratory Nasophrngl Swb Panel PCR (test code = *NA*(12/14/21 6:56 PM) Source Respiratory Panel PCR) [facility]LE[facility] [id number] 23:56:00 Test Item Value Reference Range Interpretation Comments Influenza A PCR (test Negative (12/14/21 6:56 code = Influenza A PCR) PM) [facility]KYLE[facility] [id number] 23:56:00 Test Item Value Reference Range Interpretation Comments Influenza B PCR (test Negative (12/14/21 6:56 code = Influenza B PCR) PM) [facility]annMOLE[facility] [id number] 23:56:00 Test Item Value Reference Range Interpretation Comments RSV PCR (test code = Negative (12/14/21 6:56 RSV PCR) PM) [facility]annCARDIAC [id number] 23:55:00 Test Item Value Reference Range Interpretation Comments BNP (test code = BNP) [address] [place], [place] [address]CHEM [id number] 23:55:00 Test Item Value Reference Range Interpretation Comments Procalcitonin Lvl (test 0.80 See_Comment [Au tomated message] code = Procalcitonin Lvl) Th e system which generated this result transmitted ref erence range: <=0.10. The reference range was not used to interpr et this result as normal/abnormal . [facility] wiseri2022-07-17 23:55:00 Test Item Value Reference Range Interpretation Comments BNP (test code = BNP) 1994 [facility] IROCKE [id number] 23:55:00 Test Item Value Reference Range Interpretation Comments Procalcitonin Lvl (test 0.80 See_Comment [Au tomated message] code = Procalcitonin Lvl) Th e system which generated this result transmitted ref erence range: <=0.10. The reference range was not used to interpr et this result as normal/abnormal . [facility] wiseri2022-07-17 23:55:00 Test Item Value Reference Range Interpretation Comments BNP (test code = BNP) 1994 [facility] [place] [id number] 23:55:00 Test Item Value Reference Range Interpretation Comments Procalcitonin Lvl (test 0.80 See_Comment [Au tomated message] code = Procalcitonin Lvl) Th e system which generated this result transmitted ref erence range: <=0.10. The reference range was not used to interpr et this result as normal/abnormal . [facility] wiseri2022-07-17 23:55:00 Test Item Value Reference Range Interpretation Comments BNP (test code = BNP) 1994 [facility] [place] [id number] 23:55:00 Test Item Value Reference Range Interpretation Comments Procalcitonin Lvl (test 0.80 See_Comment [Au tomated message] code = Procalcitonin Lvl) Th e system which generated this result transmitted ref erence range: <=0.10. The reference range was not used to interpr et this result as normal/abnormal . [facility] wiseri2022-07-17 23:55:00 Test Item Value Reference Range Interpretation Comments BNP (test code = BNP) 1994 [facility] [place] [id number] 23:55:00 Test Item Value Reference Range Interpretation Comments Procalcitonin Lvl (test 0.80 See_Comment [Au tomated message] code = Procalcitonin Lvl) e system which generated this result transmitted ref erence range: <=0.10. The reference range was not used to interpr et this result as normal/abnormal . [facility] [employer]CAR[employer]AC [id number] 23:55:00 Test Item Value Reference Range Interpretation Comments BNP (test code = BNP) 1994 [facility] [id number] 23:55:00 Test Item Value Reference Range Interpretation Comments Procalcitonin Lvl (test 0.80 See_Comment [Au tomated message] code = Procalcitonin Lvl) e system which generated this result transmitted ref erence range: <=0.10. The reference range was not used to interpr et this result as normal/abnormal . [facility] [employer]ableCARAfterCollegeAC [id number] 21:26:00 Test Item Value Reference Range Interpretation Comments HS Troponin I 1 Hr (test code = HS 389 Troponin I 1 Hr) [facility]villeCMOSIS nvAC [id number] 21:26:00 Test Item Value Reference Range Interpretation Comments HS Troponin I 0 to 1 Hour Delta (test 49 1 code = HS Troponin I 0 to 1 Hour Delta) [facility] naaptolAC [id number] 21:26:00 Test Item Value Reference Range Interpretation Comments HS Troponin I 1 Hr (test code = HS 389 Troponin I 1 Hr) [facility] naaptolAC [id number] 21:26:00 Test Item Value Reference Range Interpretation Comments HS Troponin I 0 to 1 Hour Delta (test 49 1 code = HS Troponin I 0 to 1 Hour Delta) [facility] naaptolAC [id number] 21:26:00 Test Item Value Reference Range Interpretation Comments HS Troponin I 1 Hr (test code = HS 389 Troponin I 1 Hr) [facility] [employer] SoftwareannAudioNameAC [id number] 21:26:00 Test Item Value Reference Range Interpretation Comments HS Troponin I 0 to 1 Hour Delta (test 49 1 code = HS Troponin I 0 to 1 Hour Delta) [facility] naaptolAC [id number] 21:26:00 Test Item Value Reference Range Interpretation Comments HS Troponin I 1 Hr (test code = HS 389 Troponin I 1 Hr) [facility] [id number] 21:26:00 Test Item Value Reference Range Interpretation Comments HS Troponin I 0 to 1 Hour Delta (test 49 1 code = HS Troponin I 0 to 1 Hour Delta) [facility] [id number] 21:26:00 Test Item Value Reference Range Interpretation Comments HS Troponin I 1 Hr (test code = HS 389 Troponin I 1 Hr) [facility] [id number] 21:26:00 Test Item Value Reference Range Interpretation Comments HS Troponin I 0 to 1 Hour Delta (test 49 1 code = HS Troponin I 0 to 1 Hour Delta) [facility] [id number] 21:26:00 Test Item Value Reference Range Interpretation Comments HS Troponin I 1 Hr (test code = HS 389 Troponin I 1 Hr) [facility] [id number] 21:26:00 Test Item Value Reference Range Interpretation Comments HS Troponin I 0 to 1 Hour Delta (test 49 1 code = HS Troponin I 0 to 1 Hour Delta) [facility] [id number] 20:10:00 Test Item Value Reference Range Interpretation Comments HS Troponin I Baseline (test code = HS 340 Troponin I Baseline) [facility] [place] [id number] 20:10:00 Test Item Value Reference Range Interpretation Comments Glucose Lvl (test code = Glucose Lvl) 60 70-99 [facility] [place] [id number] 20:10:00 Test Item Value Reference Range Interpretation Comments BUN (test code = BUN) 35 7-22 [facility] [place] [id number] 20:10:00 Test Item Value Reference Range Interpretation Comments Creatinine Lvl (test code = Creatinine 6.10 0.50-1.40 Lvl) [facility] [place] [id number] 20:10:00 Test Item Value Reference Range Interpretation Comments Sodium Lvl (test code = Sodium Lvl) 139 135-145 [facility] [place] [id number] 20:10:00 Test Item Value Reference Range Interpretation Comments Potassium Lvl (test code = Potassium 3.1 3.5-5.1 Lvl) [facility] [place] [id number] 20:10:00 Test Item Value Reference Range Interpretation Comments Chloride Lvl (test code = Chloride Lvl) 105 95-109 [facility] [place] [id number] 20:10:00 Test Item Value Reference Range Interpretation Comments CO2 (test code = CO2) 28 24-32 [facility] [place] [id number] 20:10:00 Test Item Value Reference Range Interpretation Comments Calcium Lvl (test code = Calcium Lvl) 8.1 8.5-10.5 [facility] [place] [id number] 20:10:00 Test Item Value Reference Range Interpretation Comments Total Protein (test code = Total 5.8 6.4-8.4 Protein) [facility] [place] [id number] 20:10:00 Test Item Value Reference Range Interpretation Comments Albumin Lvl (test code = Albumin Lvl) 2.6 3.5-5.0 [facility] IROCKE [id number] 20:10:00 Test Item Value Reference Range Interpretation Comments ALT (test code = ALT) 74 See_Comment [Auto mated message] The system which ge nerated this result transmit swathi reference range : <=65. The reference range was not used to interpr et this result as deny l/abnormal. [facility] IROCKE [id number] 20:10:00 Test Item Value Reference Range Interpretation Comments AST (test code = AST) 117 See_Comment [Auto mated message] The system which ge nerated this result transmit swathi reference range : <=37. The reference range was not used to interpr et this result as deny l/abnormal. [facility] IROCKE [id number] 20:10:00 Test Item Value Reference Range Interpretation Comments Alk Phos (test code = Alk Phos) 241 39-136 [facility] IROCKE [id number] 20:10:00 Test Item Value Reference Range Interpretation Comments Bili Total (test code = Bili Total) 0.8 0.2-1.3 [facility] IROCKE [id number] 20:10:00 Test Item Value Reference Range Interpretation Comments AGAP (test code = AGAP) 9.1 10.0-20.0 [facility] IROCKE [id number] 20:10:00 Test Item Value Reference Range Interpretation Comments B/C Ratio (test code = B/C Ratio) 6 1 6-25 [facility] IROCKE [id number] 20:10:00 Test Item Value Reference Range Interpretation Comments Globulin (test code = Globulin) 3.2 2.7-4.2 [facility]2022-07-17 20:10:00 Test Item Value Reference Range Interpretation Comments A/G Ratio (test code = A/G Ratio) 0.8 1 0.7-1.6 [facility]2022-07-17 20:10:00 Test Item Value Reference Range Interpretation Comments eGFR (test code = eGFR) 9 [facility] LancasterPjskwzzQFKWQLMHRC1484-17-69 20:10:00 Test Item Value Reference Range Interpretation Comments WBC (test code = WBC) 4.3 3.7-10.4 [place] 247202-07-17 20:10:00 Test Item Value Reference Range Interpretation Comments RBC (test code = RBC) 2.17 4.70-6.10 [place] 247202-07-17 20:10:00 Test Item Value Reference Range Interpretation Comments Hgb (test code = Hgb) 7.7 14.0-18.0 [place] 247202-07-17 20:10:00 Test Item Value Reference Range Interpretation Comments Hct (test code = Hct) 22.9 42.0-54.0 [facility] LancasterIkhneloUOYDOGJAUX8913-38-99 20:10:00 Test Item Value Reference Range Interpretation Comments MCV (test code = MCV) 105.9 80.0-94.0 [place] 247202-07-17 20:10:00 Test Item Value Reference Range Interpretation Comments MCH (test code = MCH) 35.4 pg 27.0-31.0 [facility] LancasterQkreypnSAFNFVFHGY7324-49-74 20:10:00 Test Item Value Reference Range Interpretation Comments MCHC (test code = MCHC) 33.4 32.0-36.0 [facility] LancasterOkdsqvfPQCEPHRSVP3876-05-06 20:10:00 Test Item Value Reference Range Interpretation Comments RDW (test code = RDW) 23.6 11.5-14.5 [place] 247202-07-17 20:10:00 Test Item Value Reference Range Interpretation Comments Platelet (test code = Platelet) 146 133-450 [place] 247202-07-17 20:10:00 Test Item Value Reference Range Interpretation Comments MPV (test code = MPV) 8.0 7.4-10.4 [place] 247202-07-17 20:10:00 Test Item Value Reference Range Interpretation Comments Plt Morph (test code = Normal (12/14/21 3:10 Plt Morph) PM) [facility] LancasterEppzbvbABQKVVVHND3268-59-77 20:10:00 Test Item Value Reference Range Interpretation Comments Segs (test code = Segs) 67.4 45.0-75.0 [place] 247202-07-17 20:10:00 Test Item Value Reference Range Interpretation Comments Lymphocytes (test code = Lymphocytes) 12.8 20.0-40.0 [place] 247202-07-17 20:10:00 Test Item Value Reference Range Interpretation Comments Monocytes (test code = Monocytes) 15.1 2.0-12.0 [place] 247202-07-17 20:10:00 Test Item Value Reference Range Interpretation Comments Eosinophils (test code = 4.1 See_Comment [A utomated message] The Eosinophils) system which ge nerated this result tra nsmitted reference range : <=4.0. The reference r samantha was not used to int erpret this result as normal/abnormal . [facility] LancasterQzetjfkSZQNGGTHSV2234-68-41 20:10:00 Test Item Value Reference Range Interpretation Comments Basophils (test code = 0.6 See_Comment [Aut omated message] The Basophils) system which ge nerated this result tra nsmitted reference range : <=1.0. The reference r samantha was not used to int erpret this result as normal/abnormal . [facility] LancasterXrtoyaoBYROLGUBXY2714-23-28 20:10:00 Test Item Value Reference Range Interpretation Comments Neutrophils # (test code = Neutrophils 2.9 1.5-8.1 #) [facility] LancasterQembzehSFGMJCIVXY7910-49-65 20:10:00 Test Item Value Reference Range Interpretation Comments Lymphocytes # (test code = Lymphocytes 0.5 1.0-5.5 #) [place] 247202-07-17 20:10:00 Test Item Value Reference Range Interpretation Comments Monocytes # (test code 0.6 See_Comment [Aut omated message] The = Monocytes #) system which generated this result tra nsmitted reference range : <=0.8. The reference r samantha was not used to int erpret this result as normal/abnormal . [facility] LancasterCpslqguFSOWYBODCJ7856-65-67 20:10:00 Test Item Value Reference Range Interpretation Comments Eosinophils # (test code 0.2 See_Comment [A utomated message] The = Eosinophils #) system [employer] h generated this result tra nsmitted reference range : <=0.5. The reference r samantha was not used to int erpret this result as normal/abnormal . [facility] LancasterPswygofEOXIAZUCVA4465-91-79 20:10:00 Test Item Value Reference Range Interpretation Comments Anisocyte (test code = 1+ *ABN*(12/14/21 Anisocyte) 3:10 PM) [facility]WomabfcECWFCHTMEA2723-[facility] 20:10:00 Test Item Value Reference Range Interpretation Comments Macrocyte (test code = 1+ *ABN*(12/14/21 Macrocyte) 3:10 PM) [facility] CenterKgfpmacZOJRFBCJYJ6883-32-71 20:10:00 Test Item Value Reference Range Interpretation Comments Coronavirus (COVID-19) Detected MANUEL (test code = 4*ABN*(12/14/21 3:10 Coronavirus (COVID-19) PM) MANUEL) [facility] CenterCARD[facility]AC [id number] 20:10:00 Test Item Value Reference Range Interpretation Comments HS Troponin I Baseline (test code = HS 340 Troponin I Baseline) [facility]2022-07-17 20:10:00 Test Item Value Reference Range Interpretation Comments Glucose Lvl (test code = Glucose Lvl) 60 70-99 [facility]2022-07-17 20:10:00 Test Item Value Reference Range Interpretation Comments BUN (test code = BUN) 35 7-22 [facility]2022-07-17 20:10:00 Test Item Value Reference Range Interpretation Comments Creatinine Lvl (test code = Creatinine 6.10 0.50-1.40 Lvl) [facility]2022-07-17 20:10:00 Test Item Value Reference Range Interpretation Comments Sodium Lvl (test code = Sodium Lvl) 139 135-145 [facility]2022-07-17 20:10:00 Test Item Value Reference Range Interpretation Comments Potassium Lvl (test code = Potassium 3.1 3.5-5.1 Lvl) [facility]2022-07-17 20:10:00 Test Item Value Reference Range Interpretation Comments Chloride Lvl (test code = Chloride Lvl) 105 95-109 [facility] CenterSpe[facility] [id number] 20:10:00 Test Item Value Reference Range Interpretation Comments CO2 (test code = CO2) 28 24-32 [facility] [place] [id number] 20:10:00 Test Item Value Reference Range Interpretation Comments Calcium Lvl (test code = Calcium Lvl) 8.1 8.5-10.5 [facility] [place] [id number] 20:10:00 Test Item Value Reference Range Interpretation Comments Total Protein (test code = Total 5.8 6.4-8.4 Protein) [place] 378062-07-17 20:10:00 Test Item Value Reference Range Interpretation Comments Albumin Lvl (test code = Albumin Lvl) 2.6 3.5-5.0 [facility] [place] [id number] 20:10:00 Test Item Value Reference Range Interpretation Comments ALT (test code = ALT) 74 See_Comment [Auto mated message] The system which ge nerated this result transmit swathi reference range : <=65. The reference range was not used to interpr et this result as deny l/abnormal. [facility] [place] [id number] 20:10:00 Test Item Value Reference Range Interpretation Comments AST (test code = AST) 117 See_Comment [Auto mated message] The system which ge nerated this result transmit swathi reference range : <=37. The reference range was not used to interpr et this result as deny l/abnormal. [facility] Center[facility] [id number] 20:10:00 Test Item Value Reference Range Interpretation Comments Alk Phos (test code = Alk Phos) 241 39-136 [facility] [place] [id number] 20:10:00 Test Item Value Reference Range Interpretation Comments Bili Total (test code = Bili Total) 0.8 0.2-1.3 [facility] [id number] 20:10:00 Test Item Value Reference Range Interpretation Comments AGAP (test code = AGAP) 9.1 10.0-20.0 [facility] [id number] 20:10:00 Test Item Value Reference Range Interpretation Comments B/C Ratio (test code = B/C Ratio) 6 1 6-25 [facility] [id number] 20:10:00 Test Item Value Reference Range Interpretation Comments Globulin (test code = Globulin) 3.2 2.7-4.2 [facility] [id number] 20:10:00 Test Item Value Reference Range Interpretation Comments A/G Ratio (test code = A/G Ratio) 0.8 1 0.7-1.6 [facility] [id number] 20:10:00 Test Item Value Reference Range Interpretation Comments eGFR (test code = eGFR) 9 [facility] LancasterEpjngczVDPYHRFYEY1773-25-04 20:10:00 Test Item Value Reference Range Interpretation Comments WBC (test code = WBC) 4.3 3.7-10.4 [facility] LancasterEhevltdAQEULHMQXE9908-71-17 20:10:00 Test Item Value Reference Range Interpretation Comments RBC (test code = RBC) 2.17 4.70-6.10 [facility] LancasterWtotgzyKNRKSUSZHW5844-96-00 20:10:00 Test Item Value Reference Range Interpretation Comments Hgb (test code = Hgb) 7.7 14.0-18.0 [facility] LancasterDdhdhfaTSFCDIETNP7347-25-08 20:10:00 Test Item Value Reference Range Interpretation Comments Hct (test code = Hct) 22.9 42.0-54.0 [facility] LancasterHvleqcqOXAHSFJXRP2327-24-92 20:10:00 Test Item Value Reference Range Interpretation Comments MCV (test code = MCV) 105.9 80.0-94.0 [facility] LancasterCxmvwsnZEAUXTBTMW8964-43-65 20:10:00 Test Item Value Reference Range Interpretation Comments MCH (test code = MCH) 35.4 pg 27.0-31.0 [facility] LancasterIztmmhbKUVKFUVWTL0013-02-00 20:10:00 Test Item Value Reference Range Interpretation Comments MCHC (test code = MCHC) 33.4 32.0-36.0 [facility] LancasterVlajkojAOYAKBHWSU2910-29-71 20:10:00 Test Item Value Reference Range Interpretation Comments RDW (test code = RDW) 23.6 11.5-14.5 [facility] LancasterTunxerzNCOGEYOGKE3151-54-68 20:10:00 Test Item Value Reference Range Interpretation Comments Platelet (test code = Platelet) 146 133-450 [facility] LancasterGupfjqqXHMXBYGSAS2844-06-95 20:10:00 Test Item Value Reference Range Interpretation Comments MPV (test code = MPV) 8.0 7.4-10.4 [facility] LancasterAktepccXGXLUXSKXX7189-52-20 20:10:00 Test Item Value Reference Range Interpretation Comments Plt Morph (test code = Normal (12/14/21 3:10 Plt Morph) PM) [place] 247202-07-17 20:10:00 Test Item Value Reference Range Interpretation Comments Segs (test code = Segs) 67.4 45.0-75.0 [facility] LancasterCydxkpyAGUCVWPUBF9866-97-64 20:10:00 Test Item Value Reference Range Interpretation Comments Lymphocytes (test code = Lymphocytes) 12.8 20.0-40.0 [facility] LancasterBhbfdldCOXRHSXVXM3582-25-14 20:10:00 Test Item Value Reference Range Interpretation Comments Monocytes (test code = Monocytes) 15.1 2.0-12.0 [facility] LancasterKarwcrdKDEDHXYVJU0409-15-87 20:10:00 Test Item Value Reference Range Interpretation Comments Eosinophils (test code = 4.1 See_Comment [A utomated message] The Eosinophils) system which ge nerated this result tra nsmitted reference range : <=4.0. The reference r samantha was not used to int erpret this result as normal/abnormal . [facility] LancasterLiqptruWYKASSPBMT4973-19-22 20:10:00 Test Item Value Reference Range Interpretation Comments Basophils (test code = 0.6 See_Comment [Aut omated message] The Basophils) system which ge nerated this result tra nsmitted reference range : <=1.0. The reference r samantha was not used to int erpret this result as normal/abnormal . [facility] LancasterAtxwdbrWEDPTSXQTR4139-09-30 20:10:00 Test Item Value Reference Range Interpretation Comments Neutrophils # (test code = Neutrophils 2.9 1.5-8.1 #) [facility] LancasterDpdvareFPFYVEMYUQ6559-02-90 20:10:00 Test Item Value Reference Range Interpretation Comments Lymphocytes # (test code = Lymphocytes 0.5 1.0-5.5 #) [place] 247202-07-17 20:10:00 Test Item Value Reference Range Interpretation Comments Monocytes # (test code 0.6 See_Comment [Aut omated message] The = Monocytes #) system which generated this result tra nsmitted reference range : <=0.8. The reference r samantha was not used to int erpret this result as normal/abnormal . [facility] LancasterZcydfwrLOQRVTSAKU8248-37-62 20:10:00 Test Item Value Reference Range Interpretation Comments Eosinophils # (test code 0.2 See_Comment [A utomated message] The = Eosinophils #) system [employer] h generated this result tra nsmitted reference range : <=0.5. The reference r samantha was not used to int erpret this result as normal/abnormal . [facility] CenterBlxjnltTOFVFVAHFW0442-70-75 20:10:00 Test Item Value Reference Range Interpretation Comments Anisocyte (test code = 1+ *ABN*(12/14/21 Anisocyte) 3:10 PM) [facility] CenterNvhovnjVGOVVXTZSG3322-61-64 20:10:00 Test Item Value Reference Range Interpretation Comments Macrocyte (test code = 1+ *ABN*(12/14/21 Macrocyte) 3:10 PM) [facility] CenterTtphhkeTAJHJVSGRO2834-70-98 20:10:00 Test Item Value Reference Range Interpretation Comments Coronavirus (COVID-19) Detected MANUEL (test code = 4*ABN*(12/14/21 3:10 Coronavirus (COVID-19) PM) MANUEL) [facility] CenterCARD[facility]AC UISVJLP4735-78-27 20:10:00 Test Item Value Reference Range Interpretation Comments HS Troponin I Baseline (test code = HS 340 Troponin I Baseline) [facility] CenterSpe[facility] [id number] 20:10:00 Test Item Value Reference Range Interpretation Comments Glucose Lvl (test code = Glucose Lvl) 60 70-99 [facility]2022-07-17 20:10:00 Test Item Value Reference Range Interpretation Comments BUN (test code = BUN) 35 7-22 [facility] [id number] 20:10:00 Test Item Value Reference Range Interpretation Comments Creatinine Lvl (test code = Creatinine 6.10 0.50-1.40 Lvl) [facility] FEOZB8392-55-08 20:10:00 Test Item Value Reference Range Interpretation Comments Sodium Lvl (test code = Sodium Lvl) 139 135-145 [facility] CenterSpe[facility] [id number] 20:10:00 Test Item Value Reference Range Interpretation Comments Potassium Lvl (test code = Potassium 3.1 3.5-5.1 Lvl) [facility] [id number] 20:10:00 Test Item Value Reference Range Interpretation Comments Chloride Lvl (test code = Chloride Lvl) 105 95-109 [place] 378062-07-17 20:10:00 Test Item Value Reference Range Interpretation Comments CO2 (test code = CO2) 28 24-32 [place] 378062-07-17 20:10:00 Test Item Value Reference Range Interpretation Comments Calcium Lvl (test code = Calcium Lvl) 8.1 8.5-10.5 [place] 378062-07-17 20:10:00 Test Item Value Reference Range Interpretation Comments Total Protein (test code = Total 5.8 6.4-8.4 Protein) [place] 378062-07-17 20:10:00 Test Item Value Reference Range Interpretation Comments Albumin Lvl (test code = Albumin Lvl) 2.6 3.5-5.0 [place] 378062-07-17 20:10:00 Test Item Value Reference Range Interpretation Comments ALT (test code = ALT) 74 See_Comment [Auto mated message] The system which ge nerated this result transmit swathi reference range : <=65. The reference range was not used to interpr et this result as deny l/abnormal. [place] 378062-07-17 20:10:00 Test Item Value Reference Range Interpretation Comments AST (test code = AST) 117 See_Comment [Auto mated message] The system which ge nerated this result transmit swathi reference range : <=37. The reference range was not used to interpr et this result as deny l/abnormal. [place] 378062-07-17 20:10:00 Test Item Value Reference Range Interpretation Comments Alk Phos (test code = Alk Phos) 241 39-136 [place] 378062-07-17 20:10:00 Test Item Value Reference Range Interpretation Comments Bili Total (test code = Bili Total) 0.8 0.2-1.3 [place] [address]-07-17 20:10:00 Test Item Value Reference Range Interpretation Comments AGAP (test code = AGAP) 9.1 10.0-20.0 [place] [address]-07-17 20:10:00 Test Item Value Reference Range Interpretation Comments B/C Ratio (test code = B/C Ratio) 6 1 6-25 [place] [address]-07-17 20:10:00 Test Item Value Reference Range Interpretation Comments Globulin (test code = Globulin) 3.2 2.7-4.2 [facility] [id number] 20:10:00 Test Item Value Reference Range Interpretation Comments A/G Ratio (test code = A/G Ratio) 0.8 1 0.7-1.6 [facility] [id number] 20:10:00 Test Item Value Reference Range Interpretation Comments eGFR (test code = eGFR) 9 [facility] LancasterIsevphwWMPQSSENSB9066-64-28 20:10:00 Test Item Value Reference Range Interpretation Comments WBC (test code = WBC) 4.3 3.7-10.4 [facility] LancasterYiyeasfHXQDMVKCIR6262-71-90 20:10:00 Test Item Value Reference Range Interpretation Comments RBC (test code = RBC) 2.17 4.70-6.10 [facility] LancasterLufyvmzOIZNJOJMSG5702-26-32 20:10:00 Test Item Value Reference Range Interpretation Comments Hgb (test code = Hgb) 7.7 14.0-18.0 [facility] LancasterHfzmitfHXOLOXWGSJ7253-31-50 20:10:00 Test Item Value Reference Range Interpretation Comments Hct (test code = Hct) 22.9 42.0-54.0 [facility] LancasterAeudvleABHJRMSBEB3736-49-72 20:10:00 Test Item Value Reference Range Interpretation Comments MCV (test code = MCV) 105.9 80.0-94.0 [facility] LancasterNnjplyhDQHVNLVMHQ6881-48-21 20:10:00 Test Item Value Reference Range Interpretation Comments MCH (test code = MCH) 35.4 pg 27.0-31.0 [facility] LancasterKzilocmXNJYTCHUCA7588-92-12 20:10:00 Test Item Value Reference Range Interpretation Comments MCHC (test code = MCHC) 33.4 32.0-36.0 [place] 247202-07-17 20:10:00 Test Item Value Reference Range Interpretation Comments RDW (test code = RDW) 23.6 11.5-14.5 [facility] LancasterHpsuqxjUJXZHWBAMG8490-84-21 20:10:00 Test Item Value Reference Range Interpretation Comments Platelet (test code = Platelet) 146 133-450 [facility] LancasterLnmyofoSHLBEFMCYW7162-04-85 20:10:00 Test Item Value Reference Range Interpretation Comments MPV (test code = MPV) 8.0 7.4-10.4 [place] 247202-07-17 20:10:00 Test Item Value Reference Range Interpretation Comments Plt Morph (test code = Normal (12/14/21 3:10 Plt Morph) PM) [facility] LancasterBbtychgKDYQJBGLBF3489-93-59 20:10:00 Test Item Value Reference Range Interpretation Comments Segs (test code = Segs) 67.4 45.0-75.0 [facility] LancasterIypxgjxLUVUZWIVQZ9337-30-44 20:10:00 Test Item Value Reference Range Interpretation Comments Lymphocytes (test code = Lymphocytes) 12.8 20.0-40.0 [place] 247202-07-17 20:10:00 Test Item Value Reference Range Interpretation Comments Monocytes (test code = Monocytes) 15.1 2.0-12.0 [place] 247202-07-17 20:10:00 Test Item Value Reference Range Interpretation Comments Eosinophils (test code = 4.1 See_Comment [A utomated message] The Eosinophils) system which ge nerated this result tra nsmitted reference range : <=4.0. The reference r samantha was not used to int erpret this result as normal/abnormal . [facility] LancasterXyopbftDHHTLWKBRG3025-47-30 20:10:00 Test Item Value Reference Range Interpretation Comments Basophils (test code = 0.6 See_Comment [Aut omated message] The Basophils) system which ge nerated this result tra nsmitted reference range : <=1.0. The reference r samantha was not used to int erpret this result as normal/abnormal . [facility] LancasterHdmcqsyRGWQOEYMES9693-70-28 20:10:00 Test Item Value Reference Range Interpretation Comments Neutrophils # (test code = Neutrophils 2.9 1.5-8.1 #) [place] 247202-07-17 20:10:00 Test Item Value Reference Range Interpretation Comments Lymphocytes # (test code = Lymphocytes 0.5 1.0-5.5 #) [place] 247202-07-17 20:10:00 Test Item Value Reference Range Interpretation Comments Monocytes # (test code 0.6 See_Comment [Aut omated message] The = Monocytes #) system which generated this result tra nsmitted reference range : <=0.8. The reference r samantha was not used to int erpret this result as normal/abnormal . [place] [address]-07-17 20:10:00 Test Item Value Reference Range Interpretation Comments Eosinophils # (test code 0.2 See_Comment [A utomated message] The = Eosinophils #) system whic h generated this result tra nsmitted reference range : <=0.5. The reference r samantha was not used to int erpret this result as normal/abnormal . [facility] LancasterNtfrcepOBAEDGEYTF7669-21-53 20:10:00 Test Item Value Reference Range Interpretation Comments Anisocyte (test code = 1+ *ABN*(12/14/21 Anisocyte) 3:10 PM) [facility] LancasterHyabuxtMPYYKTTEZE3962-47-00 20:10:00 Test Item Value Reference Range Interpretation Comments Macrocyte (test code = 1+ *ABN*(12/14/21 Macrocyte) 3:10 PM) [facility] CenterOcmdikqEXTAKFFRTM3096-59-11 20:10:00 Test Item Value Reference Range Interpretation Comments Coronavirus (COVID-19) Detected MANUEL (test code = 4*ABN*(12/14/21 3:10 Coronavirus (COVID-19) PM) MANUEL) [facility] Center[facility] [id number] 20:10:00 Test Item Value Reference Range Interpretation Comments HS Troponin I Baseline (test code = HS 340 Troponin I Baseline) [facility]2022-07-17 20:10:00 Test Item Value Reference Range Interpretation Comments Glucose Lvl (test code = Glucose Lvl) 60 70-99 [facility]2022-07-17 20:10:00 Test Item Value Reference Range Interpretation Comments BUN (test code = BUN) 35 7-22 [facility]2022-07-17 20:10:00 Test Item Value Reference Range Interpretation Comments Creatinine Lvl (test code = Creatinine 6.10 0.50-1.40 Lvl) [facility]2022-07-17 20:10:00 Test Item Value Reference Range Interpretation Comments Sodium Lvl (test code = Sodium Lvl) 139 135-145 [facility]2022-07-17 20:10:00 Test Item Value Reference Range Interpretation Comments Potassium Lvl (test code = Potassium 3.1 3.5-5.1 Lvl) [facility]2022-07-17 20:10:00 Test Item Value Reference Range Interpretation Comments Chloride Lvl (test code = Chloride Lvl) 105 95-109 [place] 378062-07-17 20:10:00 Test Item Value Reference Range Interpretation Comments CO2 (test code = CO2) 28 24-32 [place] 378062-07-17 20:10:00 Test Item Value Reference Range Interpretation Comments Calcium Lvl (test code = Calcium Lvl) 8.1 8.5-10.5 [place] 378062-07-17 20:10:00 Test Item Value Reference Range Interpretation Comments Total Protein (test code = Total 5.8 6.4-8.4 Protein) [place] 378062-07-17 20:10:00 Test Item Value Reference Range Interpretation Comments Albumin Lvl (test code = Albumin Lvl) 2.6 3.5-5.0 [place] 378062-07-17 20:10:00 Test Item Value Reference Range Interpretation Comments ALT (test code = ALT) 74 See_Comment [Auto mated message] The system which ge nerated this result transmit swathi reference range : <=65. The reference range was not used to interpr et this result as deny l/abnormal. [facility] [id number] 20:10:00 Test Item Value Reference Range Interpretation Comments AST (test code = AST) 117 See_Comment [Auto mated message] The system which ge nerated this result transmit swathi reference range : <=37. The reference range was not used to interpr et this result as deny l/abnormal. [facility] [id number] 20:10:00 Test Item Value Reference Range Interpretation Comments Alk Phos (test code = Alk Phos) 241 39-136 [facility] [id number] 20:10:00 Test Item Value Reference Range Interpretation Comments Bili Total (test code = Bili Total) 0.8 0.2-1.3 [place] 378062-07-17 20:10:00 Test Item Value Reference Range Interpretation Comments AGAP (test code = AGAP) 9.1 10.0-20.0 [facility] [id number] 20:10:00 Test Item Value Reference Range Interpretation Comments B/C Ratio (test code = B/C Ratio) 6 1 6-25 [facility] [id number] 20:10:00 Test Item Value Reference Range Interpretation Comments Globulin (test code = Globulin) 3.2 2.7-4.2 [facility]2022-07-17 20:10:00 Test Item Value Reference Range Interpretation Comments A/G Ratio (test code = A/G Ratio) 0.8 1 0.7-1.6 [facility]2022-07-17 20:10:00 Test Item Value Reference Range Interpretation Comments eGFR (test code = eGFR) 9 [facility] LancasterJejdbjpHEPPKQCVPB5514-07-95 20:10:00 Test Item Value Reference Range Interpretation Comments WBC (test code = WBC) 4.3 3.7-10.4 [place] 247202-07-17 20:10:00 Test Item Value Reference Range Interpretation Comments RBC (test code = RBC) 2.17 4.70-6.10 [facility] LancasterWmosvzwIRUPFYSCHC9914-83-79 20:10:00 Test Item Value Reference Range Interpretation Comments Hgb (test code = Hgb) 7.7 14.0-18.0 [place] 247202-07-17 20:10:00 Test Item Value Reference Range Interpretation Comments Hct (test code = Hct) 22.9 42.0-54.0 [place] 247202-07-17 20:10:00 Test Item Value Reference Range Interpretation Comments MCV (test code = MCV) 105.9 80.0-94.0 [place] 247202-07-17 20:10:00 Test Item Value Reference Range Interpretation Comments MCH (test code = MCH) 35.4 pg 27.0-31.0 [facility] LancasterRjgkvyjIPQYVYFSET6318-47-64 20:10:00 Test Item Value Reference Range Interpretation Comments MCHC (test code = MCHC) 33.4 32.0-36.0 [place] 247202-07-17 20:10:00 Test Item Value Reference Range Interpretation Comments RDW (test code = RDW) 23.6 11.5-14.5 [facility] LancasterNtcipkjRWILHIHHMD5565-46-34 20:10:00 Test Item Value Reference Range Interpretation Comments Platelet (test code = Platelet) 146 133-450 [facility] LancasterNosouuqCZQOUNFCHS3910-54-90 20:10:00 Test Item Value Reference Range Interpretation Comments MPV (test code = MPV) 8.0 7.4-10.4 [facility] LancasterDxnvnckCENKPZLHHR8155-89-92 20:10:00 Test Item Value Reference Range Interpretation Comments Plt Morph (test code = Normal (12/14/21 3:10 Plt Morph) PM) [facility] LancasterHdfrcrcHFADYDUIDS5450-95-03 20:10:00 Test Item Value Reference Range Interpretation Comments Segs (test code = Segs) 67.4 45.0-75.0 [facility] LancasterTynjlvmNGRTLAQWKO6178-31-07 20:10:00 Test Item Value Reference Range Interpretation Comments Lymphocytes (test code = Lymphocytes) 12.8 20.0-40.0 [place] 247202-07-17 20:10:00 Test Item Value Reference Range Interpretation Comments Monocytes (test code = Monocytes) 15.1 2.0-12.0 [facility] LancasterZnxvefbYNZJKOSWJB6749-26-19 20:10:00 Test Item Value Reference Range Interpretation Comments Eosinophils (test code = 4.1 See_Comment [A utomated message] The Eosinophils) system which ge nerated this result tra nsmitted reference range : <=4.0. The reference r samantha was not used to int erpret this result as normal/abnormal . [facility] LancasterXelrkxhLFPBUTOQYJ5386-75-98 20:10:00 Test Item Value Reference Range Interpretation Comments Basophils (test code = 0.6 See_Comment [Aut omated message] The Basophils) system which ge nerated this result tra nsmitted reference range : <=1.0. The reference r samantha was not used to int erpret this result as normal/abnormal . [facility] LancasterDtsajnpQPMTNSWLGQ5853-29-30 20:10:00 Test Item Value Reference Range Interpretation Comments Neutrophils # (test code = Neutrophils 2.9 1.5-8.1 #) [facility] LancasterBakbhznQNEDTRUAOA9653-17-83 20:10:00 Test Item Value Reference Range Interpretation Comments Lymphocytes # (test code = Lymphocytes 0.5 1.0-5.5 #) [place] 247202-07-17 20:10:00 Test Item Value Reference Range Interpretation Comments Monocytes # (test code 0.6 See_Comment [Aut omated message] The = Monocytes #) system which generated this result tra nsmitted reference range : <=0.8. The reference r samantha was not used to int erpret this result as normal/abnormal . [facility] CenterSutrthjJTGNJFFRRI6916-68-49 20:10:00 Test Item Value Reference Range Interpretation Comments Eosinophils # (test code 0.2 See_Comment [A utomated message] The = Eosinophils #) system whic h generated this result tra nsmitted reference range : <=0.5. The reference r samantha was not used to int erpret this result as normal/abnormal . [facility] CenterYhrnqenBNOMTBZBZH2998-59-10 20:10:00 Test Item Value Reference Range Interpretation Comments Anisocyte (test code = 1+ *ABN*(12/14/21 Anisocyte) 3:10 PM) [facility] CenterKtliqnbSSHZIELNYE9493-47-39 20:10:00 Test Item Value Reference Range Interpretation Comments Macrocyte (test code = 1+ *ABN*(12/14/21 Macrocyte) 3:10 PM) [facility] CenterWpxziwzRLJGEPJHZG6611-74-71 20:10:00 Test Item Value Reference Range Interpretation Comments Coronavirus (COVID-19) Detected MANUEL (test code = 4*ABN*(12/14/21 3:10 Coronavirus (COVID-19) PM) MANUEL) [facility] CenterCARDIAC [id number] 20:10:00 Test Item Value Reference Range Interpretation Comments HS Troponin I Baseline (test code = HS 340 Troponin I Baseline) [facility] CenterSpe[facility] [id number] 20:10:00 Test Item Value Reference Range Interpretation Comments Glucose Lvl (test code = Glucose Lvl) 60 70-99 [facility] [id number] 20:10:00 Test Item Value Reference Range Interpretation Comments BUN (test code = BUN) 35 7-22 [facility] [id number] 20:10:00 Test Item Value Reference Range Interpretation Comments Creatinine Lvl (test code = Creatinine 6.10 0.50-1.40 Lvl) [facility] [place] BJHNY5101-11-93 20:10:00 Test Item Value Reference Range Interpretation Comments Sodium Lvl (test code = Sodium Lvl) 139 135-145 [facility] [place] [id number] 20:10:00 Test Item Value Reference Range Interpretation Comments Potassium Lvl (test code = Potassium 3.1 3.5-5.1 Lvl) [facility] [place] DSPDS9397-20-07 20:10:00 Test Item Value Reference Range Interpretation Comments Chloride Lvl (test code = Chloride Lvl) 105 95-109 [facility] [id number] 20:10:00 Test Item Value Reference Range Interpretation Comments CO2 (test code = CO2) 28 24-32 [facility] [place]Clic[place]BR[place] 57145QMRYZ1132-95-05 20:10:00 Test Item Value Reference Range Interpretation Comments Calcium Lvl (test code = Calcium Lvl) 8.1 8.5-10.5 [facility] [id number] 20:10:00 Test Item Value Reference Range Interpretation Comments Total Protein (test code = Total 5.8 6.4-8.4 Protein) [facility] [id number] 20:10:00 Test Item Value Reference Range Interpretation Comments Albumin Lvl (test code = Albumin Lvl) 2.6 3.5-5.0 [facility] [place] [id number] 20:10:00 Test Item Value Reference Range Interpretation Comments ALT (test code = ALT) 74 See_Comment [Auto mated message] The system which ge nerated this result transmit swathi reference range : <=65. The reference range was not used to interpr et this result as deny l/abnormal. [facility] [place] [id number] 20:10:00 Test Item Value Reference Range Interpretation Comments AST (test code = AST) 117 See_Comment [Auto mated message] The system which ge nerated this result transmit swathi reference range : <=37. The reference range was not used to interpr et this result as deny l/abnormal. [facility] IROCKE SCPHH9669-44-10 20:10:00 Test Item Value Reference Range Interpretation Comments Alk Phos (test code = Alk Phos) 241 39-136 [facility] [place] [id number] 20:10:00 Test Item Value Reference Range Interpretation Comments Bili Total (test code = Bili Total) 0.8 0.2-1.3 [facility] [id number] 20:10:00 Test Item Value Reference Range Interpretation Comments AGAP (test code = AGAP) 9.1 10.0-20.0 [facility] [id number] 20:10:00 Test Item Value Reference Range Interpretation Comments B/C Ratio (test code = B/C Ratio) 6 1 6-25 [facility]2022-07-17 20:10:00 Test Item Value Reference Range Interpretation Comments Globulin (test code = Globulin) 3.2 2.7-4.2 [place] 378062-07-17 20:10:00 Test Item Value Reference Range Interpretation Comments A/G Ratio (test code = A/G Ratio) 0.8 1 0.7-1.6 [place] 378062-07-17 20:10:00 Test Item Value Reference Range Interpretation Comments eGFR (test code = eGFR) 9 [facility] LancasterIlbrxqxZLLPDSSRNB2443-36-09 20:10:00 Test Item Value Reference Range Interpretation Comments WBC (test code = WBC) 4.3 3.7-10.4 [facility] LancasterWurcnifKZWGYWQSWC9413-20-78 20:10:00 Test Item Value Reference Range Interpretation Comments RBC (test code = RBC) 2.17 4.70-6.10 [facility] LancasterOabwaybJQZXEWLNQE4212-93-18 20:10:00 Test Item Value Reference Range Interpretation Comments Hgb (test code = Hgb) 7.7 14.0-18.0 [place] 247202-07-17 20:10:00 Test Item Value Reference Range Interpretation Comments Hct (test code = Hct) 22.9 42.0-54.0 [facility] LancasterHpdpzebOWGDHWKRVR0768-61-75 20:10:00 Test Item Value Reference Range Interpretation Comments MCV (test code = MCV) 105.9 80.0-94.0 [facility] LancasterZrzksizMEBLFIGSSL5020-82-20 20:10:00 Test Item Value Reference Range Interpretation Comments MCH (test code = MCH) 35.4 pg 27.0-31.0 [facility] LancasterRjbrmjfZTUFHULUFC4715-39-24 20:10:00 Test Item Value Reference Range Interpretation Comments MCHC (test code = MCHC) 33.4 32.0-36.0 [facility] LancasterQcwzzpfEAEMJCXITW0837-90-26 20:10:00 Test Item Value Reference Range Interpretation Comments RDW (test code = RDW) 23.6 11.5-14.5 [place] 247202-07-17 20:10:00 Test Item Value Reference Range Interpretation Comments Platelet (test code = Platelet) 146 133-450 [facility] LancasterHtbtuxxDTMXIJWCRI8091-79-60 20:10:00 Test Item Value Reference Range Interpretation Comments MPV (test code = MPV) 8.0 7.4-10.4 [place] 247202-07-17 20:10:00 Test Item Value Reference Range Interpretation Comments Plt Morph (test code = Normal (12/14/21 3:10 Plt Morph) PM) [place] 247202-07-17 20:10:00 Test Item Value Reference Range Interpretation Comments Segs (test code = Segs) 67.4 45.0-75.0 [place] 247202-07-17 20:10:00 Test Item Value Reference Range Interpretation Comments Lymphocytes (test code = Lymphocytes) 12.8 20.0-40.0 [place] 247202-07-17 20:10:00 Test Item Value Reference Range Interpretation Comments Monocytes (test code = Monocytes) 15.1 2.0-12.0 [place] 247202-07-17 20:10:00 Test Item Value Reference Range Interpretation Comments Eosinophils (test code = 4.1 See_Comment [A utomated message] The Eosinophils) system which ge nerated this result tra nsmitted reference range : <=4.0. The reference r samantha was not used to int erpret this result as normal/abnormal . [facility] LancasterFhzaokuXRHLILMVYV5159-56-04 20:10:00 Test Item Value Reference Range Interpretation Comments Basophils (test code = 0.6 See_Comment [Aut omated message] The Basophils) system which ge nerated this result tra nsmitted reference range : <=1.0. The reference r samantha was not used to int erpret this result as normal/abnormal . [facility] LancasterAsxvbpnLHKQKXEIIV7484-43-44 20:10:00 Test Item Value Reference Range Interpretation Comments Neutrophils # (test code = Neutrophils 2.9 1.5-8.1 #) [place] 247202-07-17 20:10:00 Test Item Value Reference Range Interpretation Comments Lymphocytes # (test code = Lymphocytes 0.5 1.0-5.5 #) [place] 247202-07-17 20:10:00 Test Item Value Reference Range Interpretation Comments Monocytes # (test code 0.6 See_Comment [Aut omated message] The = Monocytes #) system which generated this result tra nsmitted reference range : <=0.8. The reference r samantha was not used to int erpret this result as normal/abnormal . [facility]WyxcrfvTWGKATRCBL9797-77-41 20:10:00 Test Item Value Reference Range Interpretation Comments Eosinophils # (test code 0.2 See_Comment [A utomated message] The = Eosinophils #) system whic h generated this result tra nsmitted reference range : <=0.5. The reference r samantha was not used to int erpret this result as normal/abnormal . [facility] CenterOvmrajfFOBOFMEYBK1096-47-78 20:10:00 Test Item Value Reference Range Interpretation Comments Anisocyte (test code = 1+ *ABN*(12/14/21 Anisocyte) 3:10 PM) [facility] CenterMsaqoccKMLJDGCZML1315-62-40 20:10:00 Test Item Value Reference Range Interpretation Comments Macrocyte (test code = 1+ *ABN*(12/14/21 Macrocyte) 3:10 PM) [facility] CenterEtkwuhvYKKRFIXRLC0622-10-92 20:10:00 Test Item Value Reference Range Interpretation Comments Coronavirus (COVID-19) Detected MANUEL (test code = 4*ABN*(12/14/21 3:10 Coronavirus (COVID-19) PM) MANUEL) [facility] CenterCARD[facility]AC OOAWMDY0422-22-78 20:10:00 Test Item Value Reference Range Interpretation Comments HS Troponin I Baseline (test code = HS 340 Troponin I Baseline) [facility] [id number] 20:10:00 Test Item Value Reference Range Interpretation Comments Glucose Lvl (test code = Glucose Lvl) 60 70-99 [facility] [id number] 20:10:00 Test Item Value Reference Range Interpretation Comments BUN (test code = BUN) 35 7-22 [facility] [id number] 20:10:00 Test Item Value Reference Range Interpretation Comments Creatinine Lvl (test code = Creatinine 6.10 0.50-1.40 Lvl) [facility] [id number] 20:10:00 Test Item Value Reference Range Interpretation Comments Sodium Lvl (test code = Sodium Lvl) 139 135-145 [facility] PRHIO2743-37-94 20:10:00 Test Item Value Reference Range Interpretation Comments Potassium Lvl (test code = Potassium 3.1 3.5-5.1 Lvl) [facility]2022-07-17 20:10:00 Test Item Value Reference Range Interpretation Comments Chloride Lvl (test code = Chloride Lvl) 105 95-109 [place] 378062-07-17 20:10:00 Test Item Value Reference Range Interpretation Comments CO2 (test code = CO2) 28 24-32 [place] 378062-07-17 20:10:00 Test Item Value Reference Range Interpretation Comments Calcium Lvl (test code = Calcium Lvl) 8.1 8.5-10.5 [place] 378062-07-17 20:10:00 Test Item Value Reference Range Interpretation Comments Total Protein (test code = Total 5.8 6.4-8.4 Protein) [place] 378062-07-17 20:10:00 Test Item Value Reference Range Interpretation Comments Albumin Lvl (test code = Albumin Lvl) 2.6 3.5-5.0 [place] 378062-07-17 20:10:00 Test Item Value Reference Range Interpretation Comments ALT (test code = ALT) 74 See_Comment [Auto mated message] The system which ge nerated this result transmit swathi reference range : <=65. The reference range was not used to interpr et this result as deny l/abnormal. [facility] GIYWX3520-56-51 20:10:00 Test Item Value Reference Range Interpretation Comments AST (test code = AST) 117 See_Comment [Auto mated message] The system which ge nerated this result transmit swathi reference range : <=37. The reference range was not used to interpr et this result as deny l/abnormal. [facility] [id number] 20:10:00 Test Item Value Reference Range Interpretation Comments Alk Phos (test code = Alk Phos) 241 39-136 [facility] [id number] 20:10:00 Test Item Value Reference Range Interpretation Comments Bili Total (test code = Bili Total) 0.8 0.2-1.3 [place] 378062-07-17 20:10:00 Test Item Value Reference Range Interpretation Comments AGAP (test code = AGAP) 9.1 10.0-20.0 [facility] [id number] 20:10:00 Test Item Value Reference Range Interpretation Comments B/C Ratio (test code = B/C Ratio) 6 1 6-25 [facility] [id number] 20:10:00 Test Item Value Reference Range Interpretation Comments Globulin (test code = Globulin) 3.2 2.7-4.2 [facility] [id number] 20:10:00 Test Item Value Reference Range Interpretation Comments A/G Ratio (test code = A/G Ratio) 0.8 1 0.7-1.6 [facility]2022-07-17 20:10:00 Test Item Value Reference Range Interpretation Comments eGFR (test code = eGFR) 9 [facility] LancasterQgzgtyrEZBIUWKSWZ8605-08-82 20:10:00 Test Item Value Reference Range Interpretation Comments WBC (test code = WBC) 4.3 3.7-10.4 [facility] LancasterXrxtnxqPAHAZUHJGE8432-96-52 20:10:00 Test Item Value Reference Range Interpretation Comments RBC (test code = RBC) 2.17 4.70-6.10 [facility] LancasterWhznxdwGQNPFJZSES0910-76-69 20:10:00 Test Item Value Reference Range Interpretation Comments Hgb (test code = Hgb) 7.7 14.0-18.0 [facility] LancasterWqaebnmYFVBAMOUWV5392-37-36 20:10:00 Test Item Value Reference Range Interpretation Comments Hct (test code = Hct) 22.9 42.0-54.0 [facility] LancasterNwvpoccUJBRNWDRKV9830-19-64 20:10:00 Test Item Value Reference Range Interpretation Comments MCV (test code = MCV) 105.9 80.0-94.0 [facility] LancasterQmwjlvtOJKXBJCECK5900-19-34 20:10:00 Test Item Value Reference Range Interpretation Comments MCH (test code = MCH) 35.4 pg 27.0-31.0 [facility] LancasterUgugyhmJEHFJRQDNX4101-55-44 20:10:00 Test Item Value Reference Range Interpretation Comments MCHC (test code = MCHC) 33.4 32.0-36.0 [facility] LancasterMbvaitaZKMCUKODUL0748-31-41 20:10:00 Test Item Value Reference Range Interpretation Comments RDW (test code = RDW) 23.6 11.5-14.5 [facility] LancasterGhgwenyAAXKWYCAWO8476-34-82 20:10:00 Test Item Value Reference Range Interpretation Comments Platelet (test code = Platelet) 146 133-450 [facility] LancasterCpryyzzBQWZKXNTPM0620-40-41 20:10:00 Test Item Value Reference Range Interpretation Comments MPV (test code = MPV) 8.0 7.4-10.4 [place] 247202-07-17 20:10:00 Test Item Value Reference Range Interpretation Comments Plt Morph (test code = Normal (12/14/21 3:10 Plt Morph) PM) [facility] LancasterGcxwxlmNHHOKIDMPE6038-58-68 20:10:00 Test Item Value Reference Range Interpretation Comments Segs (test code = Segs) 67.4 45.0-75.0 [place] 247202-07-17 20:10:00 Test Item Value Reference Range Interpretation Comments Lymphocytes (test code = Lymphocytes) 12.8 20.0-40.0 [place] 247202-07-17 20:10:00 Test Item Value Reference Range Interpretation Comments Monocytes (test code = Monocytes) 15.1 2.0-12.0 [place] 247202-07-17 20:10:00 Test Item Value Reference Range Interpretation Comments Eosinophils (test code = 4.1 See_Comment [A utomated message] The Eosinophils) system which ge nerated this result tra nsmitted reference range : <=4.0. The reference r samantha was not used to int erpret this result as normal/abnormal . [facility]JchzsoxIHMHAMKOUX7724-79-60 20:10:00 Test Item Value Reference Range Interpretation Comments Basophils (test code = 0.6 See_Comment [Aut omated message] The Basophils) system which ge nerated this result tra nsmitted reference range : <=1.0. The reference r samantha was not used to int erpret this result as normal/abnormal . [facility] LancasterLgydzctWQHJBIJZAG2739-65-67 20:10:00 Test Item Value Reference Range Interpretation Comments Neutrophils # (test code = Neutrophils 2.9 1.5-8.1 #) [place] 247202-07-17 20:10:00 Test Item Value Reference Range Interpretation Comments Lymphocytes # (test code = Lymphocytes 0.5 1.0-5.5 #) [place] 247202-07-17 20:10:00 Test Item Value Reference Range Interpretation Comments Monocytes # (test code 0.6 See_Comment [Aut omated message] The = Monocytes #) system which generated this result tra nsmitted reference range : <=0.8. The reference r samantha was not used to int erpret this result as normal/abnormal . [facility] LancasterXnhxcepWSQALDXCZX3174-49-91 20:10:00 Test Item Value Reference Range Interpretation Comments Eosinophils # (test code 0.2 See_Comment [A utomated message] The = Eosinophils #) system whic h generated this result tra nsmitted reference range : <=0.5. The reference r samantha was not used to int erpret this result as normal/abnormal . [facility] LancasterUooqywzGMZRAVYSNB6878-92-07 20:10:00 Test Item Value Reference Range Interpretation Comments Anisocyte (test code = 1+ *ABN*(12/14/21 Anisocyte) 3:10 PM) [facility] LancasterQjmguybHULBLUZFPO3439-35-67 20:10:00 Test Item Value Reference Range Interpretation Comments Macrocyte (test code = 1+ *ABN*(12/14/21 Macrocyte) 3:10 PM) [facility] 20:10:00 Test Item Value Reference Range Interpretation Comments Coronavirus (COVID-19) Detected MANUEL (test code = 4*ABN*(12/14/21 3:10 Coronavirus (COVID-19) PM) MANUEL) [facility] [id number] 01:43:00 Test Item Value Reference Range Interpretation Comments Occult Bld Stl (test Negative (12/03/21 8:43 code = Occult Bld Stl) PM) [facility] [id number] 01:43:00 Test Item Value Reference Range Interpretation Comments Occult Bld Stl (test Negative (12/03/21 8:43 code = Occult Bld Stl) PM) [facility] [id number] 01:43:00 Test Item Value Reference Range Interpretation Comments Occult Bld Stl (test Negative (12/03/21 8:43 code = Occult Bld Stl) PM) [facility] [id number] 01:43:00 Test Item Value Reference Range Interpretation Comments Occult Bld Stl (test Negative (12/03/21 8:43 code = Occult Bld Stl) PM) [facility] [id number] 01:43:00 Test Item Value Reference Range Interpretation Comments Occult Bld Stl (test Negative (12/03/21 8:43 code = Occult Bld Stl) PM) [facility] [id number] 01:43:00 Test Item Value Reference Range Interpretation Comments Occult Bld Stl (test Negative (12/03/21 8:43 code = Occult Bld Stl) PM) [facility] [id number] 01:29:00 Test Item Value Reference Range Interpretation Comments RBC product (test code Product available = RBC product) 2(12/03/21 8:29 PM) [facility] [id number] 01:29:00 Test Item Value Reference Range Interpretation Comments RBC product (test code Product available = RBC product) 2(12/03/21 8:29 PM) [facility] [id number] 01:29:00 Test Item Value Reference Range Interpretation Comments RBC product (test code Product available = RBC product) 2(12/03/21 8:29 PM) [facility] [id number] 01:29:00 Test Item Value Reference Range Interpretation Comments RBC product (test code Product available = RBC product) 2(12/03/21 8:29 PM) [facility] [id number] 01:29:00 Test Item Value Reference Range Interpretation Comments RBC product (test code Product available = RBC product) 2(12/03/21 8:29 PM) [facility] [id number] 01:29:00 Test Item Value Reference Range Interpretation Comments RBC product (test code Product available = RBC product) 2(12/03/21 8:29 PM) [facility] [id number] 00:36:00 Test Item Value Reference Range Interpretation Comments ABO/Rh (test code = ABO/Rh) AB POS [facility] [id number] 00:36:00 Test Item Value Reference Range Interpretation Comments Antibody Scrn (test Negative (12/03/21 7:36 code = Antibody Scrn) PM) [facility]2022-07-07 00:36:00 Test Item Value Reference Range Interpretation Comments Glucose Lvl (test code = Glucose Lvl) 143 70-99 [facility] [id number] 00:36:00 Test Item Value Reference Range Interpretation Comments BUN (test code = BUN) 39 7-22 [place] 378062-07-07 00:36:00 Test Item Value Reference Range Interpretation Comments Creatinine Lvl (test code = Creatinine 5.46 0.50-1.40 Lvl) [place] 378062-07-07 00:36:00 Test Item Value Reference Range Interpretation Comments Sodium Lvl (test code = Sodium Lvl) 136 135-145 [place] 378062-07-07 00:36:00 Test Item Value Reference Range Interpretation Comments Potassium Lvl (test code = Potassium 4.2 3.5-5.1 Lvl) [place] 378062-07-07 00:36:00 Test Item Value Reference Range Interpretation Comments Chloride Lvl (test code = Chloride Lvl) 100 95-109 [place] 378062-07-07 00:36:00 Test Item Value Reference Range Interpretation Comments CO2 (test code = CO2) 27 24-32 [place] 378062-07-07 00:36:00 Test Item Value Reference Range Interpretation Comments Calcium Lvl (test code = Calcium Lvl) 8.9 8.5-10.5 [place] 378062-07-07 00:36:00 Test Item Value Reference Range Interpretation Comments AGAP (test code = AGAP) 13.2 10.0-20.0 [place] 378062-07-07 00:36:00 Test Item Value Reference Range Interpretation Comments eGFR (test code = eGFR) 10 [facility] LancasterPelkembGSCHPSAYCL1435-89-15 00:36:00 Test Item Value Reference Range Interpretation Comments WBC (test code = WBC) 2.5 3.7-10.4 [place] 247202-07-07 00:36:00 Test Item Value Reference Range Interpretation Comments RBC (test code = RBC) 1.97 4.70-6.10 [place] 247202-07-07 00:36:00 Test Item Value Reference Range Interpretation Comments Hgb (test code = Hgb) 7.1 14.0-18.0 [place] 247202-07-07 00:36:00 Test Item Value Reference Range Interpretation Comments Hct (test code = Hct) 20.6 42.0-54.0 [place] 247202-07-07 00:36:00 Test Item Value Reference Range Interpretation Comments MCV (test code = MCV) 105.0 80.0-94.0 [place] 247202-07-07 00:36:00 Test Item Value Reference Range Interpretation Comments MCH (test code = MCH) 36.2 pg 27.0-31.0 [place] 247202-07-07 00:36:00 Test Item Value Reference Range Interpretation Comments MCHC (test code = MCHC) 34.5 32.0-36.0 [place] 247202-07-07 00:36:00 Test Item Value Reference Range Interpretation Comments RDW (test code = RDW) 21.1 11.5-14.5 [place] 247202-07-07 00:36:00 Test Item Value Reference Range Interpretation Comments Platelet (test code = Platelet) 136 133-450 [facility] LancasterXaxmgmyUDCHHQWFTY5334-50-45 00:36:00 Test Item Value Reference Range Interpretation Comments MPV (test code = MPV) 8.7 7.4-10.4 [facility] LancasterFmiyfnzNAOVZFAUOA7144-14-11 00:36:00 Test Item Value Reference Range Interpretation Comments Segs (test code = Segs) 59.5 45.0-75.0 [place] 247202-07-07 00:36:00 Test Item Value Reference Range Interpretation Comments Lymphocytes (test code = Lymphocytes) 25.2 20.0-40.0 [place] 247202-07-07 00:36:00 Test Item Value Reference Range Interpretation Comments Monocytes (test code = Monocytes) 12.5 2.0-12.0 [place] 247202-07-07 00:36:00 Test Item Value Reference Range Interpretation Comments Eosinophils (test code = 2.1 See_Comment [A utomated message] The Eosinophils) system which ge nerated this result tra nsmitted reference range : <=4.0. The reference r samantha was not used to int erpret this result as normal/abnormal . [place] 247202-07-07 00:36:00 Test Item Value Reference Range Interpretation Comments Basophils (test code = 0.7 See_Comment [Aut omated message] The Basophils) system which ge nerated this result tra nsmitted reference range : <=1.0. The reference r samantha was not used to int erpret this result as normal/abnormal . [facility] LancasterNxgdzlsEECBIUCWLO9417-29-26 00:36:00 Test Item Value Reference Range Interpretation Comments Neutrophils # (test code = Neutrophils 1.5 1.5-8.1 #) [facility] LancasterEytlwweEUHRKCEDUI0240-94-73 00:36:00 Test Item Value Reference Range Interpretation Comments Lymphocytes # (test code = Lymphocytes 0.6 1.0-5.5 #) [facility] LancasterQykfkfjVQXBIRYPFV5443-48-16 00:36:00 Test Item Value Reference Range Interpretation Comments Monocytes # (test code 0.3 See_Comment [Aut omated message] The = Monocytes #) system which generated this result tra nsmitted reference range : <=0.8. The reference r samantha was not used to int erpret this result as normal/abnormal . [facility] LancasterCivhdyoIBINFOFHIC8971-08-22 00:36:00 Test Item Value Reference Range Interpretation Comments Eosinophils # (test code 0.1 See_Comment [A utomated message] The = Eosinophils #) system whic h generated this result tra nsmitted reference range : <=0.5. The reference r samantha was not used to int erpret this result as normal/abnormal . [facility] [id number] 00:36:00 Test Item Value Reference Range Interpretation Comments ABO/Rh (test code = ABO/Rh) AB POS [facility] [id number] 00:36:00 Test Item Value Reference Range Interpretation Comments Antibody Scrn (test Negative (12/03/21 7:36 code = Antibody Scrn) PM) [facility] [id number] 00:36:00 Test Item Value Reference Range Interpretation Comments Glucose Lvl (test code = Glucose Lvl) 143 70-99 [facility] [id number] 00:36:00 Test Item Value Reference Range Interpretation Comments BUN (test code = BUN) 39 7-22 [facility] [id number] 00:36:00 Test Item Value Reference Range Interpretation Comments Creatinine Lvl (test code = Creatinine 5.46 0.50-1.40 Lvl) [facility] [id number] 00:36:00 Test Item Value Reference Range Interpretation Comments Sodium Lvl (test code = Sodium Lvl) 136 135-145 [place] 378062-07-07 00:36:00 Test Item Value Reference Range Interpretation Comments Potassium Lvl (test code = Potassium 4.2 3.5-5.1 Lvl) [place] 378062-07-07 00:36:00 Test Item Value Reference Range Interpretation Comments Chloride Lvl (test code = Chloride Lvl) 100 95-109 [place] 378062-07-07 00:36:00 Test Item Value Reference Range Interpretation Comments CO2 (test code = CO2) 27 24-32 [place] 378062-07-07 00:36:00 Test Item Value Reference Range Interpretation Comments Calcium Lvl (test code = Calcium Lvl) 8.9 8.5-10.5 [place] 378062-07-07 00:36:00 Test Item Value Reference Range Interpretation Comments AGAP (test code = AGAP) 13.2 10.0-20.0 [place] 378062-07-07 00:36:00 Test Item Value Reference Range Interpretation Comments eGFR (test code = eGFR) 10 [place] 247202-07-07 00:36:00 Test Item Value Reference Range Interpretation Comments WBC (test code = WBC) 2.5 3.7-10.4 [place] 247202-07-07 00:36:00 Test Item Value Reference Range Interpretation Comments RBC (test code = RBC) 1.97 4.70-6.10 [place] 247202-07-07 00:36:00 Test Item Value Reference Range Interpretation Comments Hgb (test code = Hgb) 7.1 14.0-18.0 [place] 247202-07-07 00:36:00 Test Item Value Reference Range Interpretation Comments Hct (test code = Hct) 20.6 42.0-54.0 [place] 247202-07-07 00:36:00 Test Item Value Reference Range Interpretation Comments MCV (test code = MCV) 105.0 80.0-94.0 [place] 247202-07-07 00:36:00 Test Item Value Reference Range Interpretation Comments MCH (test code = MCH) 36.2 pg 27.0-31.0 [place] 247202-07-07 00:36:00 Test Item Value Reference Range Interpretation Comments MCHC (test code = MCHC) 34.5 32.0-36.0 [facility] LancasterEohpfiyQKLMFRCRSV9479-93-59 00:36:00 Test Item Value Reference Range Interpretation Comments RDW (test code = RDW) 21.1 11.5-14.5 [facility] LancasterFhzmikbVTODXFQASY6131-03-00 00:36:00 Test Item Value Reference Range Interpretation Comments Platelet (test code = Platelet) 136 133-450 [facility] LancasterLqljljhIJLHGOJCLT4614-10-08 00:36:00 Test Item Value Reference Range Interpretation Comments MPV (test code = MPV) 8.7 7.4-10.4 [facility] LancasterHmsmdhjMPIFNRJBFZ9891-73-01 00:36:00 Test Item Value Reference Range Interpretation Comments Segs (test code = Segs) 59.5 45.0-75.0 [facility] LancasterElddndeDTHUSRUAUA4584-39-36 00:36:00 Test Item Value Reference Range Interpretation Comments Lymphocytes (test code = Lymphocytes) 25.2 20.0-40.0 [facility] LancasterRvhtbqbJDXOSBHFGO4938-62-54 00:36:00 Test Item Value Reference Range Interpretation Comments Monocytes (test code = Monocytes) 12.5 2.0-12.0 [facility] LancasterSfuuvkpXCJBPZJPSK7875-84-50 00:36:00 Test Item Value Reference Range Interpretation Comments Eosinophils (test code = 2.1 See_Comment [A utomated message] The Eosinophils) system which ge nerated this result tra nsmitted reference range : <=4.0. The reference r samantha was not used to int erpret this result as normal/abnormal . [facility] LancasterTgupgppHKZPPEOICZ6080-44-08 00:36:00 Test Item Value Reference Range Interpretation Comments Basophils (test code = 0.7 See_Comment [Aut omated message] The Basophils) system which ge nerated this result tra nsmitted reference range : <=1.0. The reference r samantha was not used to int erpret this result as normal/abnormal . [facility] LancasterIiurrxnVNRSOLZXPC6731-12-20 00:36:00 Test Item Value Reference Range Interpretation Comments Neutrophils # (test code = Neutrophils 1.5 1.5-8.1 #) [facility] LancasterIihxgtzRURLWBAHUU8790-53-68 00:36:00 Test Item Value Reference Range Interpretation Comments Lymphocytes # (test code = Lymphocytes 0.6 1.0-5.5 #) [facility] CenterLryrbbwJKBXERUHLN5693-99-77 00:36:00 Test Item Value Reference Range Interpretation Comments Monocytes # (test code 0.3 See_Comment [Aut omated message] The = Monocytes #) system which generated this result tra nsmitted reference range : <=0.8. The reference r samantha was not used to int erpret this result as normal/abnormal . [facility] CenterDcaebkrTXNPDMNGAD6952-91-68 00:36:00 Test Item Value Reference Range Interpretation Comments Eosinophils # (test code 0.1 See_Comment [A utomated message] The = Eosinophils #) system whic h generated this result tra nsmitted reference range : <=0.5. The reference r samantha was not used to int erpret this result as normal/abnormal . [facility] [place]2022-07-07 00:36:00 Test Item Value Reference Range Interpretation Comments ABO/Rh (test code = ABO/Rh) AB POS [facility] [employer] [id number] 00:36:00 Test Item Value Reference Range Interpretation Comments Antibody Scrn (test Negative (12/03/21 7:36 code = Antibody Scrn) PM) [facility] IROCKE [id number] 00:36:00 Test Item Value Reference Range Interpretation Comments Glucose Lvl (test code = Glucose Lvl) 143 70-99 [facility] [employer] [id number] 00:36:00 Test Item Value Reference Range Interpretation Comments BUN (test code = BUN) 39 7-22 [facility] [employer] [id number] 00:36:00 Test Item Value Reference Range Interpretation Comments Creatinine Lvl (test code = Creatinine 5.46 0.50-1.40 Lvl) [facility] [employer] [id number] 00:36:00 Test Item Value Reference Range Interpretation Comments Sodium Lvl (test code = Sodium Lvl) 136 135-145 [facility] IR[employer]KE [id number] 00:36:00 Test Item Value Reference Range Interpretation Comments Potassium Lvl (test code = Potassium 4.2 3.5-5.1 Lvl) [facility] IR[employer]KE [id number] 00:36:00 Test Item Value Reference Range Interpretation Comments Chloride Lvl (test code = Chloride Lvl) 100 95-109 [facility]2022-07-07 00:36:00 Test Item Value Reference Range Interpretation Comments CO2 (test code = CO2) 27 24-32 [facility] [id number] 00:36:00 Test Item Value Reference Range Interpretation Comments Calcium Lvl (test code = Calcium Lvl) 8.9 8.5-10.5 [facility]2022-07-07 00:36:00 Test Item Value Reference Range Interpretation Comments AGAP (test code = AGAP) 13.2 10.0-20.0 [facility]2022-07-07 00:36:00 Test Item Value Reference Range Interpretation Comments eGFR (test code = eGFR) 10 [facility] LancasterRsdxxvhIROQHPSTYU4138-05-34 00:36:00 Test Item Value Reference Range Interpretation Comments WBC (test code = WBC) 2.5 3.7-10.4 [facility] LancasterVmupymqRDDVUIPGRF9196-42-03 00:36:00 Test Item Value Reference Range Interpretation Comments RBC (test code = RBC) 1.97 4.70-6.10 [facility] LancasterAydittoCGCDVDNBUW4063-04-82 00:36:00 Test Item Value Reference Range Interpretation Comments Hgb (test code = Hgb) 7.1 14.0-18.0 [facility] LancasterMhicrreUNXFMGTTWY0431-47-72 00:36:00 Test Item Value Reference Range Interpretation Comments Hct (test code = Hct) 20.6 42.0-54.0 [facility] LancasterVfchbbyGQPMUPOJPP8876-12-84 00:36:00 Test Item Value Reference Range Interpretation Comments MCV (test code = MCV) 105.0 80.0-94.0 [place] 247202-07-07 00:36:00 Test Item Value Reference Range Interpretation Comments MCH (test code = MCH) 36.2 pg 27.0-31.0 [place] 247202-07-07 00:36:00 Test Item Value Reference Range Interpretation Comments MCHC (test code = MCHC) 34.5 32.0-36.0 [place] 247202-07-07 00:36:00 Test Item Value Reference Range Interpretation Comments RDW (test code = RDW) 21.1 11.5-14.5 [place] 247202-07-07 00:36:00 Test Item Value Reference Range Interpretation Comments Platelet (test code = Platelet) 136 133-450 [facility] LancasterRnxneklPHQXKETTRT8293-84-00 00:36:00 Test Item Value Reference Range Interpretation Comments MPV (test code = MPV) 8.7 7.4-10.4 [place] 247202-07-07 00:36:00 Test Item Value Reference Range Interpretation Comments Segs (test code = Segs) 59.5 45.0-75.0 [facility] LancasterPpyqzaeCRNNBITALG2265-98-54 00:36:00 Test Item Value Reference Range Interpretation Comments Lymphocytes (test code = Lymphocytes) 25.2 20.0-40.0 [place] 247202-07-07 00:36:00 Test Item Value Reference Range Interpretation Comments Monocytes (test code = Monocytes) 12.5 2.0-12.0 [place] 247202-07-07 00:36:00 Test Item Value Reference Range Interpretation Comments Eosinophils (test code = 2.1 See_Comment [A utomated message] The Eosinophils) system which ge nerated this result tra nsmitted reference range : <=4.0. The reference r samantha was not used to int erpret this result as normal/abnormal . [facility] LancasterCaodfwgDWSEINTCCX9008-52-17 00:36:00 Test Item Value Reference Range Interpretation Comments Basophils (test code = 0.7 See_Comment [Aut omated message] The Basophils) system which ge nerated this result tra nsmitted reference range : <=1.0. The reference r samantha was not used to int erpret this result as normal/abnormal . [facility] LancasterAlykrpaZZGRUPQPCO5952-88-41 00:36:00 Test Item Value Reference Range Interpretation Comments Neutrophils # (test code = Neutrophils 1.5 1.5-8.1 #) [facility] LancasterIasxnrkFXUITUEYMM7460-55-19 00:36:00 Test Item Value Reference Range Interpretation Comments Lymphocytes # (test code = Lymphocytes 0.6 1.0-5.5 #) [place] 247202-07-07 00:36:00 Test Item Value Reference Range Interpretation Comments Monocytes # (test code 0.3 See_Comment [Aut omated message] The = Monocytes #) system which generated this result tra nsmitted reference range : <=0.8. The reference r samantha was not used to int erpret this result as normal/abnormal . [facility] CenterGbpidbpIIAUWFHLIF3020-53-94 00:36:00 Test Item Value Reference Range Interpretation Comments Eosinophils # (test code 0.1 See_Comment [A utomated message] The = Eosinophils #) system whic h generated this result tra nsmitted reference range : <=0.5. The reference r samantha was not used to int erpret this result as normal/abnormal . [facility] [employer] [id number] 00:36:00 Test Item Value Reference Range Interpretation Comments ABO/Rh (test code = ABO/Rh) AB POS [facility] [employer] [facility] [id number] 00:36:00 Test Item Value Reference Range Interpretation Comments Antibody Scrn (test Negative (12/03/21 7:36 code = Antibody Scrn) PM) [facility] [employer] [id number] 00:36:00 Test Item Value Reference Range Interpretation Comments Glucose Lvl (test code = Glucose Lvl) 143 70-99 [facility] [employer] [id number] 00:36:00 Test Item Value Reference Range Interpretation Comments BUN (test code = BUN) 39 7-22 [facility] FUJBI8725-68-47 00:36:00 Test Item Value Reference Range Interpretation Comments Creatinine Lvl (test code = Creatinine 5.46 0.50-1.40 Lvl) [facility] [employer] [id number] 00:36:00 Test Item Value Reference Range Interpretation Comments Sodium Lvl (test code = Sodium Lvl) 136 135-145 [facility] [employer] [id number] 00:36:00 Test Item Value Reference Range Interpretation Comments Potassium Lvl (test code = Potassium 4.2 3.5-5.1 Lvl) [facility] [employer] [id number] 00:36:00 Test Item Value Reference Range Interpretation Comments Chloride Lvl (test code = Chloride Lvl) 100 95-109 [facility] [employer] [id number] 00:36:00 Test Item Value Reference Range Interpretation Comments CO2 (test code = CO2) 27 24-32 [facility] [employer] [id number] 00:36:00 Test Item Value Reference Range Interpretation Comments Calcium Lvl (test code = Calcium Lvl) 8.9 8.5-10.5 [facility]2022-07-07 00:36:00 Test Item Value Reference Range Interpretation Comments AGAP (test code = AGAP) 13.2 10.0-20.0 [facility] [id number] 00:36:00 Test Item Value Reference Range Interpretation Comments eGFR (test code = eGFR) 10 [facility] LancasterEkxxyxrPEUOCSFSIA7379-11-98 00:36:00 Test Item Value Reference Range Interpretation Comments WBC (test code = WBC) 2.5 3.7-10.4 [facility] LancasterGczltawMDXREIFDYQ2417-57-56 00:36:00 Test Item Value Reference Range Interpretation Comments RBC (test code = RBC) 1.97 4.70-6.10 [facility] LancasterSwxageiEXAOYNDPSY5314-48-80 00:36:00 Test Item Value Reference Range Interpretation Comments Hgb (test code = Hgb) 7.1 14.0-18.0 [facility] LancasterLhhvifeRDQKCVITDI1092-65-94 00:36:00 Test Item Value Reference Range Interpretation Comments Hct (test code = Hct) 20.6 42.0-54.0 [facility] LancasterHukfgyjURBILEVEXO2338-69-46 00:36:00 Test Item Value Reference Range Interpretation Comments MCV (test code = MCV) 105.0 80.0-94.0 [facility] LancasterKhmcgioXBUXDNQCMN4777-19-75 00:36:00 Test Item Value Reference Range Interpretation Comments MCH (test code = MCH) 36.2 pg 27.0-31.0 [facility] LancasterBufkdizEOTTWUBJJA5743-00-60 00:36:00 Test Item Value Reference Range Interpretation Comments MCHC (test code = MCHC) 34.5 32.0-36.0 [facility] LancasterHyecggeDAOXZYODLE5555-05-49 00:36:00 Test Item Value Reference Range Interpretation Comments RDW (test code = RDW) 21.1 11.5-14.5 [place] 247202-07-07 00:36:00 Test Item Value Reference Range Interpretation Comments Platelet (test code = Platelet) 136 133-450 [facility] LancasterMqntzdhGGBHPUWJFJ4912-86-71 00:36:00 Test Item Value Reference Range Interpretation Comments MPV (test code = MPV) 8.7 7.4-10.4 [facility] LancasterNienzgxYCABQVAGLA4132-51-20 00:36:00 Test Item Value Reference Range Interpretation Comments Segs (test code = Segs) 59.5 45.0-75.0 [facility] LancasterFkzvljtMEOADGTJQA8773-19-72 00:36:00 Test Item Value Reference Range Interpretation Comments Lymphocytes (test code = Lymphocytes) 25.2 20.0-40.0 [facility] LancasterAdljhchVFZNWSHXBE8269-43-19 00:36:00 Test Item Value Reference Range Interpretation Comments Monocytes (test code = Monocytes) 12.5 2.0-12.0 [facility] LancasterRsuxswrVFFSMWJFNB3790-39-02 00:36:00 Test Item Value Reference Range Interpretation Comments Eosinophils (test code = 2.1 See_Comment [A utomated message] The Eosinophils) system which ge nerated this result tra nsmitted reference range : <=4.0. The reference r samantha was not used to int erpret this result as normal/abnormal . [facility] LancasterKeohdndJSVRKZANXG3459-33-15 00:36:00 Test Item Value Reference Range Interpretation Comments Basophils (test code = 0.7 See_Comment [Aut omated message] The Basophils) system which ge nerated this result tra nsmitted reference range : <=1.0. The reference r samantha was not used to int erpret this result as normal/abnormal . [facility] LancasterXmgetnsOVQTNYBPEN5991-39-96 00:36:00 Test Item Value Reference Range Interpretation Comments Neutrophils # (test code = Neutrophils 1.5 1.5-8.1 #) [facility] LancasterYnehfyfRMGETURDSB7806-81-35 00:36:00 Test Item Value Reference Range Interpretation Comments Lymphocytes # (test code = Lymphocytes 0.6 1.0-5.5 #) [place] 247202-07-07 00:36:00 Test Item Value Reference Range Interpretation Comments Monocytes # (test code 0.3 See_Comment [Aut omated message] The = Monocytes #) system which generated this result tra nsmitted reference range : <=0.8. The reference r samantha was not used to int erpret this result as normal/abnormal . [facility] LancasterOdnqhsxRGTIZWHCMP0901-69-47 00:36:00 Test Item Value Reference Range Interpretation Comments Eosinophils # (test code 0.1 See_Comment [A utomated message] The = Eosinophils #) system ic h generated this result tra nsmitted reference range : <=0.5. The reference r samantha was not used to int erpret this result as normal/abnormal . [facility] VCKFVCI0351-63-87 00:36:00 Test Item Value Reference Range Interpretation Comments ABO/Rh (test code = ABO/Rh) AB POS [facility] MTQQSSG3630-92-07 00:36:00 Test Item Value Reference Range Interpretation Comments Antibody Scrn (test Negative (12/03/21 7:36 code = Antibody Scrn) PM) [facility] FCRBF7211-25-21 00:36:00 Test Item Value Reference Range Interpretation Comments Glucose Lvl (test code = Glucose Lvl) 143 70-99 [facility] [place] OZLUK7904-50-12 00:36:00 Test Item Value Reference Range Interpretation Comments BUN (test code = BUN) 39 7-22 [facility] [place] KZEKX7385-62-94 00:36:00 Test Item Value Reference Range Interpretation Comments Creatinine Lvl (test code = Creatinine 5.46 0.50-1.40 Lvl) [facility] [place] [id number] 00:36:00 Test Item Value Reference Range Interpretation Comments Sodium Lvl (test code = Sodium Lvl) 136 135-145 [facility] [place] CLMBI4104-28-00 00:36:00 Test Item Value Reference Range Interpretation Comments Potassium Lvl (test code = Potassium 4.2 3.5-5.1 Lvl) [facility] [place] [id number] 00:36:00 Test Item Value Reference Range Interpretation Comments Chloride Lvl (test code = Chloride Lvl) 100 95-109 [facility] [place] ETOAL9699-92-30 00:36:00 Test Item Value Reference Range Interpretation Comments CO2 (test code = CO2) 27 24-32 [facility] [place] [id number] 00:36:00 Test Item Value Reference Range Interpretation Comments Calcium Lvl (test code = Calcium Lvl) 8.9 8.5-10.5 [facility] [place] WJUXC3679-91-81 00:36:00 Test Item Value Reference Range Interpretation Comments AGAP (test code = AGAP) 13.2 10.0-20.0 [facility] [place] [id number] 00:36:00 Test Item Value Reference Range Interpretation Comments eGFR (test code = eGFR) 10 [facility]ThpdsjiHLLMMJDJEA6529-65-56 00:36:00 Test Item Value Reference Range Interpretation Comments WBC (test code = WBC) 2.5 3.7-10.4 [facility] LancasterPegnetwIODWVRYCDO2882-73-20 00:36:00 Test Item Value Reference Range Interpretation Comments RBC (test code = RBC) 1.97 4.70-6.10 [facility] LancasterSzuslqaUJFCSFHPZM7783-11-87 00:36:00 Test Item Value Reference Range Interpretation Comments Hgb (test code = Hgb) 7.1 14.0-18.0 [place] 247202-07-07 00:36:00 Test Item Value Reference Range Interpretation Comments Hct (test code = Hct) 20.6 42.0-54.0 [facility] LancasterCmdyrbnDNZQZGECAN3656-62-55 00:36:00 Test Item Value Reference Range Interpretation Comments MCV (test code = MCV) 105.0 80.0-94.0 [facility] LancasterXizafjuCOFHWBVCOW4405-70-86 00:36:00 Test Item Value Reference Range Interpretation Comments MCH (test code = MCH) 36.2 pg 27.0-31.0 [facility] LancasterZacnbuyNTWTCJEBLF8466-81-68 00:36:00 Test Item Value Reference Range Interpretation Comments MCHC (test code = MCHC) 34.5 32.0-36.0 [facility] LancasterIwgcxfnVFMZBDDMAD7369-68-21 00:36:00 Test Item Value Reference Range Interpretation Comments RDW (test code = RDW) 21.1 11.5-14.5 [facility] LancasterTpdyxvdDVDDYLDWST5197-14-50 00:36:00 Test Item Value Reference Range Interpretation Comments Platelet (test code = Platelet) 136 133-450 [facility] LancasterEykdtndZJBCVWYGYB7486-51-14 00:36:00 Test Item Value Reference Range Interpretation Comments MPV (test code = MPV) 8.7 7.4-10.4 [facility] LancasterVamylkhSDJBKXBKKS2075-24-51 00:36:00 Test Item Value Reference Range Interpretation Comments Segs (test code = Segs) 59.5 45.0-75.0 [place] 247202-07-07 00:36:00 Test Item Value Reference Range Interpretation Comments Lymphocytes (test code = Lymphocytes) 25.2 20.0-40.0 [place] 247202-07-07 00:36:00 Test Item Value Reference Range Interpretation Comments Monocytes (test code = Monocytes) 12.5 2.0-12.0 [facility] LancasterMnhzyngWZVWKJLZEQ3680-78-43 00:36:00 Test Item Value Reference Range Interpretation Comments Eosinophils (test code = 2.1 See_Comment [A utomated message] The Eosinophils) system which ge nerated this result tra nsmitted reference range : <=4.0. The reference r samantha was not used to int erpret this result as normal/abnormal . [facility] CenterIgqxdtwWHGEEGYGIP1471-14-27 00:36:00 Test Item Value Reference Range Interpretation Comments Basophils (test code = 0.7 See_Comment [Aut omated message] The Basophils) system which ge nerated this result tra nsmitted reference range : <=1.0. The reference r samantha was not used to int erpret this result as normal/abnormal . [facility] CenterGzybdbtVMFLUQZYDA7168-39-01 00:36:00 Test Item Value Reference Range Interpretation Comments Neutrophils # (test code = Neutrophils 1.5 1.5-8.1 #) [facility]XwqsxdhTETGVOLSUI7571-28-76 00:36:00 Test Item Value Reference Range Interpretation Comments Lymphocytes # (test code = Lymphocytes 0.6 1.0-5.5 #) [facility] CenterFvcyrulVTUPOLSCYJ9051-67-61 00:36:00 Test Item Value Reference Range Interpretation Comments Monocytes # (test code 0.3 See_Comment [Aut omated message] The = Monocytes #) system which generated this result tra nsmitted reference range : <=0.8. The reference r samantha was not used to int erpret this result as normal/abnormal . [facility] CenterHrwyybgULRZLEUVBX1355-07-95 00:36:00 Test Item Value Reference Range Interpretation Comments Eosinophils # (test code 0.1 See_Comment [A utomated message] The = Eosinophils #) system whic h generated this result tra nsmitted reference range : <=0.5. The reference r samantha was not used to int erpret this result as normal/abnormal . [facility] [employer] VRZQYGD8528-73-59 00:36:00 Test Item Value Reference Range Interpretation Comments ABO/Rh (test code = ABO/Rh) AB POS [facility] [employer] BJWQGOQ4033-80-03 00:36:00 Test Item Value Reference Range Interpretation Comments Antibody Scrn (test Negative (12/03/21 7:36 code = Antibody Scrn) PM) [place] 378062-07-07 00:36:00 Test Item Value Reference Range Interpretation Comments Glucose Lvl (test code = Glucose Lvl) 143 70-99 [place] 378062-07-07 00:36:00 Test Item Value Reference Range Interpretation Comments BUN (test code = BUN) 39 7-22 [place] 378062-07-07 00:36:00 Test Item Value Reference Range Interpretation Comments Creatinine Lvl (test code = Creatinine 5.46 0.50-1.40 Lvl) [place] 378062-07-07 00:36:00 Test Item Value Reference Range Interpretation Comments Sodium Lvl (test code = Sodium Lvl) 136 135-145 [place] 378062-07-07 00:36:00 Test Item Value Reference Range Interpretation Comments Potassium Lvl (test code = Potassium 4.2 3.5-5.1 Lvl) [place] 378062-07-07 00:36:00 Test Item Value Reference Range Interpretation Comments Chloride Lvl (test code = Chloride Lvl) 100 95-109 [place] 378062-07-07 00:36:00 Test Item Value Reference Range Interpretation Comments CO2 (test code = CO2) 27 24-32 [place] 378062-07-07 00:36:00 Test Item Value Reference Range Interpretation Comments Calcium Lvl (test code = Calcium Lvl) 8.9 8.5-10.5 [place] 378062-07-07 00:36:00 Test Item Value Reference Range Interpretation Comments AGAP (test code = AGAP) 13.2 10.0-20.0 [place] 378062-07-07 00:36:00 Test Item Value Reference Range Interpretation Comments eGFR (test code = eGFR) 10 [place] 247202-07-07 00:36:00 Test Item Value Reference Range Interpretation Comments WBC (test code = WBC) 2.5 3.7-10.4 [place] 247202-07-07 00:36:00 Test Item Value Reference Range Interpretation Comments RBC (test code = RBC) 1.97 4.70-6.10 [place] 247202-07-07 00:36:00 Test Item Value Reference Range Interpretation Comments Hgb (test code = Hgb) 7.1 14.0-18.0 [facility] LancasterJhargyoXTQJBLXSFK2798-89-36 00:36:00 Test Item Value Reference Range Interpretation Comments Hct (test code = Hct) 20.6 42.0-54.0 [facility] LancasterMeeczwaQHQYKWVOCS9283-11-44 00:36:00 Test Item Value Reference Range Interpretation Comments MCV (test code = MCV) 105.0 80.0-94.0 [facility] LancasterDlpayooMADVYCIMVY8084-36-93 00:36:00 Test Item Value Reference Range Interpretation Comments MCH (test code = MCH) 36.2 pg 27.0-31.0 [facility] LancasterYxcbepvJSNVHZNCNI0462-58-92 00:36:00 Test Item Value Reference Range Interpretation Comments MCHC (test code = MCHC) 34.5 32.0-36.0 [facility] LancasterQapmypnUJOXTTMSYW8763-89-74 00:36:00 Test Item Value Reference Range Interpretation Comments RDW (test code = RDW) 21.1 11.5-14.5 [facility] LancasterUxmdsvwYAGEGZATWQ6549-95-26 00:36:00 Test Item Value Reference Range Interpretation Comments Platelet (test code = Platelet) 136 133-450 [facility] LancasterKaehqeoBXWEQUUIWY3108-15-42 00:36:00 Test Item Value Reference Range Interpretation Comments MPV (test code = MPV) 8.7 7.4-10.4 [facility] LancasterIravpufNNBBCUHCVG3888-68-10 00:36:00 Test Item Value Reference Range Interpretation Comments Segs (test code = Segs) 59.5 45.0-75.0 [facility] LancasterMxwykjvQNVTXQLWDZ9422-22-28 00:36:00 Test Item Value Reference Range Interpretation Comments Lymphocytes (test code = Lymphocytes) 25.2 20.0-40.0 [place] 247202-07-07 00:36:00 Test Item Value Reference Range Interpretation Comments Monocytes (test code = Monocytes) 12.5 2.0-12.0 [place] 247202-07-07 00:36:00 Test Item Value Reference Range Interpretation Comments Eosinophils (test code = 2.1 See_Comment [A utomated message] The Eosinophils) system which ge nerated this result tra nsmitted reference range : <=4.0. The reference r samantha was not used to int erpret this result as normal/abnormal . [place] 247202-07-07 00:36:00 Test Item Value Reference Range Interpretation Comments Basophils (test code = 0.7 See_Comment [Aut omated message] The Basophils) system which ge nerated this result tra nsmitted reference range : <=1.0. The reference r samantha was not used to int erpret this result as normal/abnormal . [facility] LancasterQcjekitANFABBQFXG1452-96-48 00:36:00 Test Item Value Reference Range Interpretation Comments Neutrophils # (test code = Neutrophils 1.5 1.5-8.1 #) [facility] LancasterNusguekMMXVSNXYZQ5024-14-46 00:36:00 Test Item Value Reference Range Interpretation Comments Lymphocytes # (test code = Lymphocytes 0.6 1.0-5.5 #) [place] 247202-07-07 00:36:00 Test Item Value Reference Range Interpretation Comments Monocytes # (test code 0.3 See_Comment [Aut omated message] The = Monocytes #) system which generated this result tra nsmitted reference range : <=0.8. The reference r samantha was not used to int erpret this result as normal/abnormal . [facility] LancasterWdcbegjHOQXOSYKIB6487-32-64 00:36:00 Test Item Value Reference Range Interpretation Comments Eosinophils # (test code 0.1 See_Comment [A utomated message] The = Eosinophils #) system whic h generated this result tra nsmitted reference range : <=0.5. The reference r samantha was not used to int erpret this result as normal/abnormal . [facility]2022-06-29 09:09:00 Test Item Value Reference Range Interpretation Comments Ferritin Lvl (test code = Ferritin Lvl) 1543 22-275 [facility]2022-06-29 09:09:00 Test Item Value Reference Range Interpretation Comments Glucose Lvl (test code = Glucose Lvl) 288 70-99 [place] 378062-06-29 09:09:00 Test Item Value Reference Range Interpretation Comments BUN (test code = BUN) 40 7-22 [place] 378062-06-29 09:09:00 Test Item Value Reference Range Interpretation Comments Creatinine Lvl (test code = Creatinine 6.23 0.50-1.40 Lvl) [place] 378062-06-29 09:09:00 Test Item Value Reference Range Interpretation Comments Sodium Lvl (test code = Sodium Lvl) 134 135-145 [place] 378062-06-29 09:09:00 Test Item Value Reference Range Interpretation Comments Potassium Lvl (test code = Potassium 4.5 3.5-5.1 Lvl) [place] 378062-06-29 09:09:00 Test Item Value Reference Range Interpretation Comments Chloride Lvl (test code = Chloride Lvl) 96 95-109 [place] 378062-06-29 09:09:00 Test Item Value Reference Range Interpretation Comments CO2 (test code = CO2) 29 24-32 [place] 378062-06-29 09:09:00 Test Item Value Reference Range Interpretation Comments AGAP (test code = AGAP) 13.5 10.0-20.0 [place] 378062-06-29 09:09:00 Test Item Value Reference Range Interpretation Comments Calcium Lvl (test code = Calcium Lvl) 9.1 8.5-10.5 [place] 378062-06-29 09:09:00 Test Item Value Reference Range Interpretation Comments B/C Ratio (test code = B/C Ratio) 6 1 6-25 [place] 378062-06-29 09:09:00 Test Item Value Reference Range Interpretation Comments Total Protein (test code = Total 6.3 6.4-8.4 Protein) [place] 378062-06-29 09:09:00 Test Item Value Reference Range Interpretation Comments Albumin Lvl (test code = Albumin Lvl) 2.5 3.5-5.0 [place] 378062-06-29 09:09:00 Test Item Value Reference Range Interpretation Comments Globulin (test code = Globulin) 3.8 2.7-4.2 [place] 378062-06-29 09:09:00 Test Item Value Reference Range Interpretation Comments A/G Ratio (test code = A/G Ratio) 0.7 1 0.7-1.6 [place] 378062-06-29 09:09:00 Test Item Value Reference Range Interpretation Comments ALT (test code = ALT) 38 See_Comment [Auto mated message] The system which ge nerated this result transmit swathi reference range : <=65. The reference range was not used to interpr et this result as deny l/abnormal. [place] 378062-06-29 09:09:00 Test Item Value Reference Range Interpretation Comments AST (test code = AST) 31 See_Comment [Auto mated message] The system which ge nerated this result transmit swathi reference range : <=37. The reference range was not used to interpr et this result as deny l/abnormal. [place] 378062-06-29 09:09:00 Test Item Value Reference Range Interpretation Comments Alk Phos (test code = Alk Phos) 357 39-136 [place] 378062-06-29 09:09:00 Test Item Value Reference Range Interpretation Comments Bili Total (test code = Bili Total) 1.0 0.2-1.3 [place] [address]-06-29 09:09:00 Test Item Value Reference Range Interpretation Comments eGFR (test code = eGFR) 8 [place] 378062-06-29 09:09:00 Test Item Value Reference Range Interpretation Comments Magnesium Lvl (test code = Magnesium 2.0 1.8-2.4 Lvl) [place] 378062-06-29 09:09:00 Test Item Value Reference Range Interpretation Comments LDH (test code = LDH) 251 98-192 [place] 378062-06-29 09:09:00 Test Item Value Reference Range Interpretation Comments Procalcitonin Lvl (test 0.51 See_Comment [Au tomated message] code = Procalcitonin Lvl) Th e system which generated this result transmitted ref erence range: <=0.10. The reference range was not used to interpr et this result as normal/abnormal . [place] 247202-06-29 09:09:00 Test Item Value Reference Range Interpretation Comments D-Dimer (test code = D-Dimer) 5.06 [place] [address]-06-29 09:09:00 Test Item Value Reference Range Interpretation Comments WBC (test code = WBC) 4.8 3.7-10.4 [place] [address]-06-29 09:09:00 Test Item Value Reference Range Interpretation Comments RBC (test code = RBC) 2.14 4.70-6.10 [place] [address]-06-29 09:09:00 Test Item Value Reference Range Interpretation Comments Hgb (test code = Hgb) 7.7 14.0-18.0 [facility] LancasterBrxpiowEOTPEESLBF4161-03-06 09:09:00 Test Item Value Reference Range Interpretation Comments Hct (test code = Hct) 22.8 42.0-54.0 [place] 247202-06-29 09:09:00 Test Item Value Reference Range Interpretation Comments MCV (test code = MCV) 106.5 80.0-94.0 [place] 247202-06-29 09:09:00 Test Item Value Reference Range Interpretation Comments MCH (test code = MCH) 36.1 pg 27.0-31.0 [place] 247202-06-29 09:09:00 Test Item Value Reference Range Interpretation Comments MCHC (test code = MCHC) 33.9 32.0-36.0 [place] 247202-06-29 09:09:00 Test Item Value Reference Range Interpretation Comments RDW (test code = RDW) 21.8 11.5-14.5 [place] 247202-06-29 09:09:00 Test Item Value Reference Range Interpretation Comments Platelet (test code = Platelet) 176 133-450 [facility] LancasterEakpxpaUACEQHGGRC7301-57-29 09:09:00 Test Item Value Reference Range Interpretation Comments MPV (test code = MPV) 8.2 7.4-10.4 [place] 247202-06-29 09:09:00 Test Item Value Reference Range Interpretation Comments Segs (test code = Segs) 83.6 45.0-75.0 [place] 247202-06-29 09:09:00 Test Item Value Reference Range Interpretation Comments Lymphocytes (test code = Lymphocytes) 10.7 20.0-40.0 [place] 247202-06-29 09:09:00 Test Item Value Reference Range Interpretation Comments Monocytes (test code = Monocytes) 4.9 2.0-12.0 [place] 247202-06-29 09:09:00 Test Item Value Reference Range Interpretation Comments Eosinophils (test code = 0.4 See_Comment [A utomated message] The Eosinophils) system which ge nerated this result tra nsmitted reference range : <=4.0. The reference r samantha was not used to int erpret this result as normal/abnormal . [facility] LancasterJuzxufwBSFEZYNKUF7378-19-96 09:09:00 Test Item Value Reference Range Interpretation Comments Basophils (test code = 0.4 See_Comment [Aut omated message] The Basophils) system which ge nerated this result tra nsmitted reference range : <=1.0. The reference r samantha was not used to int erpret this result as normal/abnormal . [facility] LancasterYkkziyzEOSBDDGIMI2912-50-35 09:09:00 Test Item Value Reference Range Interpretation Comments Neutrophils # (test code = Neutrophils 4.0 1.5-8.1 #) [facility] LancasterRqqgvkzAQOFYJLMCI1390-14-16 09:09:00 Test Item Value Reference Range Interpretation Comments Lymphocytes # (test code = Lymphocytes 0.5 1.0-5.5 #) [facility] LancasterLyuuoioSTDRHTCHMH2797-46-41 09:09:00 Test Item Value Reference Range Interpretation Comments Monocytes # (test code 0.2 See_Comment [Aut omated message] The = Monocytes #) system which generated this result tra nsmitted reference range : <=0.8. The reference r samantha was not used to int erpret this result as normal/abnormal . [facility] LancasterOicaqtqULKZMXAOXI6724-38-13 09:09:00 Test Item Value Reference Range Interpretation Comments Macrocyte (test code = 1+ *ABN*(11/26/21 Macrocyte) 4:09 AM) [facility] CenterVhhvbevEYFQCESDCC9024-74-77 09:09:00 Test Item Value Reference Range Interpretation Comments Interleukin 6 (test code = Interleukin 14.71 6) [facility] CenterGzikeeeSFANFDPFXO3162-35-77 09:09:00 Test Item Value Reference Range Interpretation Comments C-REACTIVE PROTEIN (test code = 95.9 C-REACTIVE PROTEIN) [facility]2022-06-29 09:09:00 Test Item Value Reference Range Interpretation Comments Ferritin Lvl (test code = Ferritin Lvl) 1543 22-275 [facility]2022-06-29 09:09:00 Test Item Value Reference Range Interpretation Comments Glucose Lvl (test code = Glucose Lvl) 288 70-99 [facility]2022-06-29 09:09:00 Test Item Value Reference Range Interpretation Comments BUN (test code = BUN) 40 7-22 [facility]2022-06-29 09:09:00 Test Item Value Reference Range Interpretation Comments Creatinine Lvl (test code = Creatinine 6.23 0.50-1.40 Lvl) [place] 378062-06-29 09:09:00 Test Item Value Reference Range Interpretation Comments Sodium Lvl (test code = Sodium Lvl) 134 135-145 [place] 378062-06-29 09:09:00 Test Item Value Reference Range Interpretation Comments Potassium Lvl (test code = Potassium 4.5 3.5-5.1 Lvl) [place] 378062-06-29 09:09:00 Test Item Value Reference Range Interpretation Comments Chloride Lvl (test code = Chloride Lvl) 96 95-109 [place] 378062-06-29 09:09:00 Test Item Value Reference Range Interpretation Comments CO2 (test code = CO2) 29 24-32 [place] 378062-06-29 09:09:00 Test Item Value Reference Range Interpretation Comments AGAP (test code = AGAP) 13.5 10.0-20.0 [place] 378062-06-29 09:09:00 Test Item Value Reference Range Interpretation Comments Calcium Lvl (test code = Calcium Lvl) 9.1 8.5-10.5 [place] 378062-06-29 09:09:00 Test Item Value Reference Range Interpretation Comments B/C Ratio (test code = B/C Ratio) 6 1 6-25 [place] 378062-06-29 09:09:00 Test Item Value Reference Range Interpretation Comments Total Protein (test code = Total 6.3 6.4-8.4 Protein) [place] 378062-06-29 09:09:00 Test Item Value Reference Range Interpretation Comments Albumin Lvl (test code = Albumin Lvl) 2.5 3.5-5.0 [place] 378062-06-29 09:09:00 Test Item Value Reference Range Interpretation Comments Globulin (test code = Globulin) 3.8 2.7-4.2 [place] 378062-06-29 09:09:00 Test Item Value Reference Range Interpretation Comments A/G Ratio (test code = A/G Ratio) 0.7 1 0.7-1.6 [place] 378062-06-29 09:09:00 Test Item Value Reference Range Interpretation Comments ALT (test code = ALT) 38 See_Comment [Auto mated message] The system which ge nerated this result transmit swathi reference range : <=65. The reference range was not used to interpr et this result as deny l/abnormal. [facility] [place] [id number] 09:09:00 Test Item Value Reference Range Interpretation Comments AST (test code = AST) 31 See_Comment [Auto mated message] The system which ge nerated this result transmit swathi reference range : <=37. The reference range was not used to interpr et this result as deny l/abnormal. [facility] [place] [id number] 09:09:00 Test Item Value Reference Range Interpretation Comments Alk Phos (test code = Alk Phos) 357 39-136 [facility] [place] [id number] 09:09:00 Test Item Value Reference Range Interpretation Comments Bili Total (test code = Bili Total) 1.0 0.2-1.3 [facility] [place] [id number] 09:09:00 Test Item Value Reference Range Interpretation Comments eGFR (test code = eGFR) 8 [facility] [place] [id number] 09:09:00 Test Item Value Reference Range Interpretation Comments Magnesium Lvl (test code = Magnesium 2.0 1.8-2.4 Lvl) [place] 378062-06-29 09:09:00 Test Item Value Reference Range Interpretation Comments LDH (test code = LDH) 251 98-192 [facility] [place] [id number] 09:09:00 Test Item Value Reference Range Interpretation Comments Procalcitonin Lvl (test 0.51 See_Comment [Au tomated message] code = Procalcitonin Lvl) Th e system which generated this result transmitted ref erence range: <=0.10. The reference range was not used to interpr et this result as normal/abnormal . [facility]WxxczeiUGNLIMTCJE1463-[facility] 09:09:00 Test Item Value Reference Range Interpretation Comments D-Dimer (test code = D-Dimer) 5.06 [facility] CenterEbjaahdPALGNYIHOK2171-10-08 09:09:00 Test Item Value Reference Range Interpretation Comments WBC (test code = WBC) 4.8 3.7-10.4 [facility]qxaUNJCEBZTMJ9827-08-42 09:09:00 Test Item Value Reference Range Interpretation Comments RBC (test code = RBC) 2.14 4.70-6.10 [place] 247202-06-29 09:09:00 Test Item Value Reference Range Interpretation Comments Hgb (test code = Hgb) 7.7 14.0-18.0 [place] 247202-06-29 09:09:00 Test Item Value Reference Range Interpretation Comments Hct (test code = Hct) 22.8 42.0-54.0 [facility] LancasterBafyribIRXXUHJSRZ6869-23-06 09:09:00 Test Item Value Reference Range Interpretation Comments MCV (test code = MCV) 106.5 80.0-94.0 [place] 247202-06-29 09:09:00 Test Item Value Reference Range Interpretation Comments MCH (test code = MCH) 36.1 pg 27.0-31.0 [facility] LancasterIqujxnnJWYZCDXPGT1541-84-76 09:09:00 Test Item Value Reference Range Interpretation Comments MCHC (test code = MCHC) 33.9 32.0-36.0 [facility] LancasterHduaplvGJMLJQPBJQ1478-96-54 09:09:00 Test Item Value Reference Range Interpretation Comments RDW (test code = RDW) 21.8 11.5-14.5 [place] 247202-06-29 09:09:00 Test Item Value Reference Range Interpretation Comments Platelet (test code = Platelet) 176 133-450 [facility] LancasterYazrtynFSXDJHDSXR3897-68-65 09:09:00 Test Item Value Reference Range Interpretation Comments MPV (test code = MPV) 8.2 7.4-10.4 [place] 247202-06-29 09:09:00 Test Item Value Reference Range Interpretation Comments Segs (test code = Segs) 83.6 45.0-75.0 [place] [address]-06-29 09:09:00 Test Item Value Reference Range Interpretation Comments Lymphocytes (test code = Lymphocytes) 10.7 20.0-40.0 [place] 247202-06-29 09:09:00 Test Item Value Reference Range Interpretation Comments Monocytes (test code = Monocytes) 4.9 2.0-12.0 [place] 247202-06-29 09:09:00 Test Item Value Reference Range Interpretation Comments Eosinophils (test code = 0.4 See_Comment [A utomated message] The Eosinophils) system which ge nerated this result tra nsmitted reference range : <=4.0. The reference r samantha was not used to int erpret this result as normal/abnormal . [facility] LancasterAivotpgPFUEBPQKKV1470-58-56 09:09:00 Test Item Value Reference Range Interpretation Comments Basophils (test code = 0.4 See_Comment [Aut omated message] The Basophils) system which ge nerated this result tra nsmitted reference range : <=1.0. The reference r samantha was not used to int erpret this result as normal/abnormal . [facility] LancasterUmlxineGDFLCTKZBN9877-57-10 09:09:00 Test Item Value Reference Range Interpretation Comments Neutrophils # (test code = Neutrophils 4.0 1.5-8.1 #) [facility] LancasterHsfhufpKHMCNQCUSM3379-44-06 09:09:00 Test Item Value Reference Range Interpretation Comments Lymphocytes # (test code = Lymphocytes 0.5 1.0-5.5 #) [facility] LancasterMlkbkvcTDICEJTBAF0026-12-14 09:09:00 Test Item Value Reference Range Interpretation Comments Monocytes # (test code 0.2 See_Comment [Aut omated message] The = Monocytes #) system which generated this result tra nsmitted reference range : <=0.8. The reference r samantha was not used to int erpret this result as normal/abnormal . [facility] LancasterHounpkwAGPTAQWBTC2062-72-46 09:09:00 Test Item Value Reference Range Interpretation Comments Macrocyte (test code = 1+ *ABN*(11/26/21 Macrocyte) 4:09 AM) [facility] CenterUgzmhbtSSYOWBINSS2686-10-85 09:09:00 Test Item Value Reference Range Interpretation Comments Interleukin 6 (test code = Interleukin 14.71 6) [facility] CenterEbpakqrXGOKJKOMJR0666-31-38 09:09:00 Test Item Value Reference Range Interpretation Comments C-REACTIVE PROTEIN (test code = 95.9 C-REACTIVE PROTEIN) [facility] [id number] 09:09:00 Test Item Value Reference Range Interpretation Comments Ferritin Lvl (test code = Ferritin Lvl) 1543 22-127 [facility] CenterCHEM [id number] 09:09:00 Test Item Value Reference Range Interpretation Comments Glucose Lvl (test code = Glucose Lvl) 288 70-99 [facility]2022-06-29 09:09:00 Test Item Value Reference Range Interpretation Comments BUN (test code = BUN) 40 7-22 [place] 378062-06-29 09:09:00 Test Item Value Reference Range Interpretation Comments Creatinine Lvl (test code = Creatinine 6.23 0.50-1.40 Lvl) [place] 378062-06-29 09:09:00 Test Item Value Reference Range Interpretation Comments Sodium Lvl (test code = Sodium Lvl) 134 135-145 [place] 378062-06-29 09:09:00 Test Item Value Reference Range Interpretation Comments Potassium Lvl (test code = Potassium 4.5 3.5-5.1 Lvl) [place] 378062-06-29 09:09:00 Test Item Value Reference Range Interpretation Comments Chloride Lvl (test code = Chloride Lvl) 96 95-109 [place] 378062-06-29 09:09:00 Test Item Value Reference Range Interpretation Comments CO2 (test code = CO2) 29 24-32 [place] 378062-06-29 09:09:00 Test Item Value Reference Range Interpretation Comments AGAP (test code = AGAP) 13.5 10.0-20.0 [place] 378062-06-29 09:09:00 Test Item Value Reference Range Interpretation Comments Calcium Lvl (test code = Calcium Lvl) 9.1 8.5-10.5 [place] 378062-06-29 09:09:00 Test Item Value Reference Range Interpretation Comments B/C Ratio (test code = B/C Ratio) 6 1 6-25 [place] 378062-06-29 09:09:00 Test Item Value Reference Range Interpretation Comments Total Protein (test code = Total 6.3 6.4-8.4 Protein) [place] 378062-06-29 09:09:00 Test Item Value Reference Range Interpretation Comments Albumin Lvl (test code = Albumin Lvl) 2.5 3.5-5.0 [place] 378062-06-29 09:09:00 Test Item Value Reference Range Interpretation Comments Globulin (test code = Globulin) 3.8 2.7-4.2 [place] 378062-06-29 09:09:00 Test Item Value Reference Range Interpretation Comments A/G Ratio (test code = A/G Ratio) 0.7 1 0.7-1.6 [facility] [id number] 09:09:00 Test Item Value Reference Range Interpretation Comments ALT (test code = ALT) 38 See_Comment [Auto mated message] The system which ge nerated this result transmit swathi reference range : <=65. The reference range was not used to interpr et this result as deny l/abnormal. [facility] [place] [id number] 09:09:00 Test Item Value Reference Range Interpretation Comments AST (test code = AST) 31 See_Comment [Auto mated message] The system which ge nerated this result transmit swathi reference range : <=37. The reference range was not used to interpr et this result as deny l/abnormal. [facility] [id number] 09:09:00 Test Item Value Reference Range Interpretation Comments Alk Phos (test code = Alk Phos) 357 39-136 [facility] [place] [id number] 09:09:00 Test Item Value Reference Range Interpretation Comments Bili Total (test code = Bili Total) 1.0 0.2-1.3 [facility] [place] [id number] 09:09:00 Test Item Value Reference Range Interpretation Comments eGFR (test code = eGFR) 8 [facility] [place] ORKZI0388-57-13 09:09:00 Test Item Value Reference Range Interpretation Comments Magnesium Lvl (test code = Magnesium 2.0 1.8-2.4 Lvl) [facility] [place] [id number] 09:09:00 Test Item Value Reference Range Interpretation Comments LDH (test code = LDH) 251 98-192 [facility] [place] JYFQC2638-34-66 09:09:00 Test Item Value Reference Range Interpretation Comments Procalcitonin Lvl (test 0.51 See_Comment [Au tomated message] code = Procalcitonin Lvl) Th e system which generated this result transmitted ref erence range: <=0.10. The reference range was not used to interpr et this result as normal/abnormal . [place] 247202-06-29 09:09:00 Test Item Value Reference Range Interpretation Comments D-Dimer (test code = D-Dimer) 5.06 [facility] LancasterLohxftzDBZFBLSZHC2948-04-44 09:09:00 Test Item Value Reference Range Interpretation Comments WBC (test code = WBC) 4.8 3.7-10.4 [facility] LancasterYrzqnycKWASQJCIDM8441-76-59 09:09:00 Test Item Value Reference Range Interpretation Comments RBC (test code = RBC) 2.14 4.70-6.10 [facility] LancasterEjebihsUNHFVXLNWV5873-91-24 09:09:00 Test Item Value Reference Range Interpretation Comments Hgb (test code = Hgb) 7.7 14.0-18.0 [facility] LancasterUikskztMDUSCNGYAO4676-03-50 09:09:00 Test Item Value Reference Range Interpretation Comments Hct (test code = Hct) 22.8 42.0-54.0 [facility] LancasterSxhmwubHRDNXWWOMU5365-93-19 09:09:00 Test Item Value Reference Range Interpretation Comments MCV (test code = MCV) 106.5 80.0-94.0 [facility] LancasterFqgzimlGSPTERTRGK1037-27-50 09:09:00 Test Item Value Reference Range Interpretation Comments MCH (test code = MCH) 36.1 pg 27.0-31.0 [facility] LancasterHprsavkDXADEGMLNJ1868-02-15 09:09:00 Test Item Value Reference Range Interpretation Comments MCHC (test code = MCHC) 33.9 32.0-36.0 [facility] LancasterXbqhibrXYLMLMXRWN1690-06-56 09:09:00 Test Item Value Reference Range Interpretation Comments RDW (test code = RDW) 21.8 11.5-14.5 [facility] LancasterEiqvaxlBQJZXNTWKG9700-64-26 09:09:00 Test Item Value Reference Range Interpretation Comments Platelet (test code = Platelet) 176 133-450 [facility] LancasterHhhulcxVVTDBLRSWV8965-43-46 09:09:00 Test Item Value Reference Range Interpretation Comments MPV (test code = MPV) 8.2 7.4-10.4 [facility] LancasterBtbxpysYMUJRQKFFH9311-36-17 09:09:00 Test Item Value Reference Range Interpretation Comments Segs (test code = Segs) 83.6 45.0-75.0 [facility] LancasterCtjztfsJJWJRZCWWH4749-24-39 09:09:00 Test Item Value Reference Range Interpretation Comments Lymphocytes (test code = Lymphocytes) 10.7 20.0-40.0 [facility] LancasterAyvdnwkHQCTPHYYOT4183-56-12 09:09:00 Test Item Value Reference Range Interpretation Comments Monocytes (test code = Monocytes) 4.9 2.0-12.0 [facility] LancasterExuqtviESBBQIYVNE7952-72-35 09:09:00 Test Item Value Reference Range Interpretation Comments Eosinophils (test code = 0.4 See_Comment [A utomated message] The Eosinophils) system which ge nerated this result tra nsmitted reference range : <=4.0. The reference r samantha was not used to int erpret this result as normal/abnormal . [facility] LancasterIhbjkjtUMYXVOBXZN6091-59-61 09:09:00 Test Item Value Reference Range Interpretation Comments Basophils (test code = 0.4 See_Comment [Aut omated message] The Basophils) system which ge nerated this result tra nsmitted reference range : <=1.0. The reference r samantha was not used to int erpret this result as normal/abnormal . [facility] LancasterGzdqtcxWSPTAUAQZW2380-73-02 09:09:00 Test Item Value Reference Range Interpretation Comments Neutrophils # (test code = Neutrophils 4.0 1.5-8.1 #) [facility] LancasterBtewpcwUKSYCVXOTI0865-27-12 09:09:00 Test Item Value Reference Range Interpretation Comments Lymphocytes # (test code = Lymphocytes 0.5 1.0-5.5 #) [facility] LancasterXqxfupvBYSMSNGIZP7065-32-61 09:09:00 Test Item Value Reference Range Interpretation Comments Monocytes # (test code 0.2 See_Comment [Aut omated message] The = Monocytes #) system which generated this result tra nsmitted reference range : <=0.8. The reference r samantha was not used to int erpret this result as normal/abnormal . [facility] LancasterPjifsadVYXEPFILGY1827-52-05 09:09:00 Test Item Value Reference Range Interpretation Comments Macrocyte (test code = 1+ *ABN*(11/26/21 Macrocyte) 4:09 AM) [facility]AsbptjxVOTIIHRINI6457-61-03 09:09:00 Test Item Value Reference Range Interpretation Comments Interleukin 6 (test code = Interleukin 14.71 6) [place] 646932-06-29 09:09:00 Test Item Value Reference Range Interpretation Comments C-REACTIVE PROTEIN (test code = 95.9 C-REACTIVE PROTEIN) [facility]2022-06-29 09:09:00 Test Item Value Reference Range Interpretation Comments Ferritin Lvl (test code = Ferritin Lvl) 1543 22275 [place] 378062-06-29 09:09:00 Test Item Value Reference Range Interpretation Comments Glucose Lvl (test code = Glucose Lvl) 288 70-99 [place] 378062-06-29 09:09:00 Test Item Value Reference Range Interpretation Comments BUN (test code = BUN) 40 7-22 [place] 378062-06-29 09:09:00 Test Item Value Reference Range Interpretation Comments Creatinine Lvl (test code = Creatinine 6.23 0.50-1.40 Lvl) [place] 378062-06-29 09:09:00 Test Item Value Reference Range Interpretation Comments Sodium Lvl (test code = Sodium Lvl) 134 135-145 [place] 378062-06-29 09:09:00 Test Item Value Reference Range Interpretation Comments Potassium Lvl (test code = Potassium 4.5 3.5-5.1 Lvl) [place] 378062-06-29 09:09:00 Test Item Value Reference Range Interpretation Comments Chloride Lvl (test code = Chloride Lvl) 96 95-109 [place] 378062-06-29 09:09:00 Test Item Value Reference Range Interpretation Comments CO2 (test code = CO2) 29 24-32 [place] 378062-06-29 09:09:00 Test Item Value Reference Range Interpretation Comments AGAP (test code = AGAP) 13.5 10.0-20.0 [place] 378062-06-29 09:09:00 Test Item Value Reference Range Interpretation Comments Calcium Lvl (test code = Calcium Lvl) 9.1 8.5-10.5 [place] 378062-06-29 09:09:00 Test Item Value Reference Range Interpretation Comments B/C Ratio (test code = B/C Ratio) 6 1 6-25 [place] 378062-06-29 09:09:00 Test Item Value Reference Range Interpretation Comments Total Protein (test code = Total 6.3 6.4-8.4 Protein) [place] 378062-06-29 09:09:00 Test Item Value Reference Range Interpretation Comments Albumin Lvl (test code = Albumin Lvl) 2.5 3.5-5.0 [place] 378062-06-29 09:09:00 Test Item Value Reference Range Interpretation Comments Globulin (test code = Globulin) 3.8 2.7-4.2 [place] [address]-06-29 09:09:00 Test Item Value Reference Range Interpretation Comments A/G Ratio (test code = A/G Ratio) 0.7 1 0.7-1.6 [place] [address]-06-29 09:09:00 Test Item Value Reference Range Interpretation Comments ALT (test code = ALT) 38 See_Comment [Auto mated message] The system which ge nerated this result transmit swathi reference range : <=65. The reference range was not used to interpr et this result as deny l/abnormal. [place] 378062-06-29 09:09:00 Test Item Value Reference Range Interpretation Comments AST (test code = AST) 31 See_Comment [Auto mated message] The system which ge nerated this result transmit swathi reference range : <=37. The reference range was not used to interpr et this result as deny l/abnormal. [place] 378062-06-29 09:09:00 Test Item Value Reference Range Interpretation Comments Alk Phos (test code = Alk Phos) 357 39-136 [place] 378062-06-29 09:09:00 Test Item Value Reference Range Interpretation Comments Bili Total (test code = Bili Total) 1.0 0.2-1.3 [place] [address]-06-29 09:09:00 Test Item Value Reference Range Interpretation Comments eGFR (test code = eGFR) 8 [place] 378062-06-29 09:09:00 Test Item Value Reference Range Interpretation Comments Magnesium Lvl (test code = Magnesium 2.0 1.8-2.4 Lvl) [place] [address]-06-29 09:09:00 Test Item Value Reference Range Interpretation Comments LDH (test code = LDH) 251 98-192 [place] 378062-06-29 09:09:00 Test Item Value Reference Range Interpretation Comments Procalcitonin Lvl (test 0.51 See_Comment [Au tomated message] code = Procalcitonin Lvl) Th e system which generated this result transmitted ref erence range: <=0.10. The reference range was not used to interpr et this result as normal/abnormal . [place] 247202-06-29 09:09:00 Test Item Value Reference Range Interpretation Comments D-Dimer (test code = D-Dimer) 5.06 [place] 247202-06-29 09:09:00 Test Item Value Reference Range Interpretation Comments WBC (test code = WBC) 4.8 3.7-10.4 [place] 247202-06-29 09:09:00 Test Item Value Reference Range Interpretation Comments RBC (test code = RBC) 2.14 4.70-6.10 [place] [address]-06-29 09:09:00 Test Item Value Reference Range Interpretation Comments Hgb (test code = Hgb) 7.7 14.0-18.0 [place] [address]-06-29 09:09:00 Test Item Value Reference Range Interpretation Comments Hct (test code = Hct) 22.8 42.0-54.0 [place] [address]-06-29 09:09:00 Test Item Value Reference Range Interpretation Comments MCV (test code = MCV) 106.5 80.0-94.0 [place] [address]-06-29 09:09:00 Test Item Value Reference Range Interpretation Comments MCH (test code = MCH) 36.1 pg 27.0-31.0 [facility] LancasterQjgijgtJSPGULVUBC7067-45-30 09:09:00 Test Item Value Reference Range Interpretation Comments MCHC (test code = MCHC) 33.9 32.0-36.0 [place] 247202-06-29 09:09:00 Test Item Value Reference Range Interpretation Comments RDW (test code = RDW) 21.8 11.5-14.5 [place] 247202-06-29 09:09:00 Test Item Value Reference Range Interpretation Comments Platelet (test code = Platelet) 176 133-450 [place] 247202-06-29 09:09:00 Test Item Value Reference Range Interpretation Comments MPV (test code = MPV) 8.2 7.4-10.4 [place] [address]-06-29 09:09:00 Test Item Value Reference Range Interpretation Comments Segs (test code = Segs) 83.6 45.0-75.0 [place] 247202-06-29 09:09:00 Test Item Value Reference Range Interpretation Comments Lymphocytes (test code = Lymphocytes) 10.7 20.0-40.0 [place] 247202-06-29 09:09:00 Test Item Value Reference Range Interpretation Comments Monocytes (test code = Monocytes) 4.9 2.0-12.0 [place] 247202-06-29 09:09:00 Test Item Value Reference Range Interpretation Comments Eosinophils (test code = 0.4 See_Comment [A utomated message] The Eosinophils) system which ge nerated this result tra nsmitted reference range : <=4.0. The reference r samantha was not used to int erpret this result as normal/abnormal . [facility] LancasterZnruhalCZHSKVUPHH0909-20-13 09:09:00 Test Item Value Reference Range Interpretation Comments Basophils (test code = 0.4 See_Comment [Aut omated message] The Basophils) system which ge nerated this result tra nsmitted reference range : <=1.0. The reference r samantha was not used to int erpret this result as normal/abnormal . [facility] LancasterKjwxskmKCBOJBWLSG2665-93-15 09:09:00 Test Item Value Reference Range Interpretation Comments Neutrophils # (test code = Neutrophils 4.0 1.5-8.1 #) [facility] LancasterGcovnmeWDWHQOAFBG2418-28-93 09:09:00 Test Item Value Reference Range Interpretation Comments Lymphocytes # (test code = Lymphocytes 0.5 1.0-5.5 #) [facility] LancasterAyurbxrEVZBVIOGXZ8413-78-04 09:09:00 Test Item Value Reference Range Interpretation Comments Monocytes # (test code 0.2 See_Comment [Aut omated message] The = Monocytes #) system which generated this result tra nsmitted reference range : <=0.8. The reference r samantha was not used to int erpret this result as normal/abnormal . [facility] LancasterAbzstekJOZKVJBMLW4658-67-33 09:09:00 Test Item Value Reference Range Interpretation Comments Macrocyte (test code = 1+ *ABN*(11/26/21 Macrocyte) 4:09 AM) [facility]qufoknXYHLKGCIIN1273-35-49 09:09:00 Test Item Value Reference Range Interpretation Comments Interleukin 6 (test code = Interleukin 14.71 6) [place] 646932-06-29 09:09:00 Test Item Value Reference Range Interpretation Comments C-REACTIVE PROTEIN (test code = 95.9 C-REACTIVE PROTEIN) [facility]2022-06-29 09:09:00 Test Item Value Reference Range Interpretation Comments Ferritin Lvl (test code = Ferritin Lvl) 1543 22275 [place] 378062-06-29 09:09:00 Test Item Value Reference Range Interpretation Comments Glucose Lvl (test code = Glucose Lvl) 288 70-99 [facility]2022-06-29 09:09:00 Test Item Value Reference Range Interpretation Comments BUN (test code = BUN) 40 7-22 [place] 378062-06-29 09:09:00 Test Item Value Reference Range Interpretation Comments Creatinine Lvl (test code = Creatinine 6.23 0.50-1.40 Lvl) [place] 378062-06-29 09:09:00 Test Item Value Reference Range Interpretation Comments Sodium Lvl (test code = Sodium Lvl) 134 135-145 [place] 378062-06-29 09:09:00 Test Item Value Reference Range Interpretation Comments Potassium Lvl (test code = Potassium 4.5 3.5-5.1 Lvl) [place] 378062-06-29 09:09:00 Test Item Value Reference Range Interpretation Comments Chloride Lvl (test code = Chloride Lvl) 96 95-109 [place] 378062-06-29 09:09:00 Test Item Value Reference Range Interpretation Comments CO2 (test code = CO2) 29 24-32 [place] 378062-06-29 09:09:00 Test Item Value Reference Range Interpretation Comments AGAP (test code = AGAP) 13.5 10.0-20.0 [place] 378062-06-29 09:09:00 Test Item Value Reference Range Interpretation Comments Calcium Lvl (test code = Calcium Lvl) 9.1 8.5-10.5 [place] 378062-06-29 09:09:00 Test Item Value Reference Range Interpretation Comments B/C Ratio (test code = B/C Ratio) 6 1 6-25 [place] 378062-06-29 09:09:00 Test Item Value Reference Range Interpretation Comments Total Protein (test code = Total 6.3 6.4-8.4 Protein) [facility] [place] [address]JMEXS2628-30-73 09:09:00 Test Item Value Reference Range Interpretation Comments Albumin Lvl (test code = Albumin Lvl) 2.5 3.5-5.0 [facility]2022-06-29 09:09:00 Test Item Value Reference Range Interpretation Comments Globulin (test code = Globulin) 3.8 2.7-4.2 [place] [id number] 09:09:00 Test Item Value Reference Range Interpretation Comments A/G Ratio (test code = A/G Ratio) 0.7 1 0.7-1.6 [facility] [place]lickingHouseTA[place] [id number] 09:09:00 Test Item Value Reference Range Interpretation Comments ALT (test code = ALT) 38 See_Comment [Auto mated message] The system which ge nerated this result transmit swathi reference range : <=65. The reference range was not used to interpr et this result as deny l/abnormal. [facility] [place] [id number] 09:09:00 Test Item Value Reference Range Interpretation Comments AST (test code = AST) 31 See_Comment [Auto mated message] The system which ge nerated this result transmit swathi reference range : <=37. The reference range was not used to interpr et this result as deny l/abnormal. [facility] [place] [id number] 09:09:00 Test Item Value Reference Range Interpretation Comments Alk Phos (test code = Alk Phos) 357 39-136 [facility] [place] [id number] 09:09:00 Test Item Value Reference Range Interpretation Comments Bili Total (test code = Bili Total) 1.0 0.2-1.3 [facility] [place] [id number] 09:09:00 Test Item Value Reference Range Interpretation Comments eGFR (test code = eGFR) 8 [facility] [place] [id number] 09:09:00 Test Item Value Reference Range Interpretation Comments Magnesium Lvl (test code = Magnesium 2.0 1.8-2.4 Lvl) [facility] [place]kingHouseBR[place] [id number] 09:09:00 Test Item Value Reference Range Interpretation Comments LDH (test code = LDH) 251 98-192 [facility] [place] [id number] 09:09:00 Test Item Value Reference Range Interpretation Comments Procalcitonin Lvl (test 0.51 See_Comment [Au tomated message] code = Procalcitonin Lvl) Th e system which generated this result transmitted ref erence range: <=0.10. The reference range was not used to interpr et this result as normal/abnormal . [facility] LancasterIgfhmhzAFVQHKODQT0746-33-89 09:09:00 Test Item Value Reference Range Interpretation Comments D-Dimer (test code = D-Dimer) 5.06 [facility] LancasterRhcuvevYCGICBCKAQ9967-96-99 09:09:00 Test Item Value Reference Range Interpretation Comments WBC (test code = WBC) 4.8 3.7-10.4 [facility] LancasterKlfkbllFARBLAWSET0344-42-02 09:09:00 Test Item Value Reference Range Interpretation Comments RBC (test code = RBC) 2.14 4.70-6.10 [facility] LancasterLvndhzhLDUTLHEKDY0099-51-22 09:09:00 Test Item Value Reference Range Interpretation Comments Hgb (test code = Hgb) 7.7 14.0-18.0 [facility] LancasterLtmxevlATAEAXCIIT1774-99-31 09:09:00 Test Item Value Reference Range Interpretation Comments Hct (test code = Hct) 22.8 42.0-54.0 [facility] LancasterEccvgxsMTRALZMKYN9318-72-18 09:09:00 Test Item Value Reference Range Interpretation Comments MCV (test code = MCV) 106.5 80.0-94.0 [facility] LancasterEbueuvcQQFZGFAUSI6223-23-49 09:09:00 Test Item Value Reference Range Interpretation Comments MCH (test code = MCH) 36.1 pg 27.0-31.0 [facility] LancasterKxpszyrYBFILFAHBS9371-84-16 09:09:00 Test Item Value Reference Range Interpretation Comments MCHC (test code = MCHC) 33.9 32.0-36.0 [facility] LancasterJptztmmQXJHBCYOYF2630-86-44 09:09:00 Test Item Value Reference Range Interpretation Comments RDW (test code = RDW) 21.8 11.5-14.5 [facility] LancasterFtzyylvAMFLPQZRRI3725-06-04 09:09:00 Test Item Value Reference Range Interpretation Comments Platelet (test code = Platelet) 176 133-450 [facility] LancasterUbefxruTFAYLAYIZW5104-28-17 09:09:00 Test Item Value Reference Range Interpretation Comments MPV (test code = MPV) 8.2 7.4-10.4 [facility] LancasterPwmetgnYVKVGNETPE1094-18-77 09:09:00 Test Item Value Reference Range Interpretation Comments Segs (test code = Segs) 83.6 45.0-75.0 [facility] LancasterLsdojznOQJKTBNJIW2694-36-73 09:09:00 Test Item Value Reference Range Interpretation Comments Lymphocytes (test code = Lymphocytes) 10.7 20.0-40.0 [place] 247202-06-29 09:09:00 Test Item Value Reference Range Interpretation Comments Monocytes (test code = Monocytes) 4.9 2.0-12.0 [place] 247202-06-29 09:09:00 Test Item Value Reference Range Interpretation Comments Eosinophils (test code = 0.4 See_Comment [A utomated message] The Eosinophils) system which ge nerated this result tra nsmitted reference range : <=4.0. The reference r samantha was not used to int erpret this result as normal/abnormal . [facility] LancasterKsvxecxJGKQFIPFVV9447-07-58 09:09:00 Test Item Value Reference Range Interpretation Comments Basophils (test code = 0.4 See_Comment [Aut omated message] The Basophils) system which ge nerated this result tra nsmitted reference range : <=1.0. The reference r samantha was not used to int erpret this result as normal/abnormal . [facility] LancasterVpanpygZFRQVKYWTP6533-46-53 09:09:00 Test Item Value Reference Range Interpretation Comments Neutrophils # (test code = Neutrophils 4.0 1.5-8.1 #) [place] 247202-06-29 09:09:00 Test Item Value Reference Range Interpretation Comments Lymphocytes # (test code = Lymphocytes 0.5 1.0-5.5 #) [place] 247202-06-29 09:09:00 Test Item Value Reference Range Interpretation Comments Monocytes # (test code 0.2 See_Comment [Aut omated message] The = Monocytes #) system which generated this result tra nsmitted reference range : <=0.8. The reference r samantha was not used to int erpret this result as normal/abnormal . [facility] LancasterFcdeapcENACQRDZVE1447-77-75 09:09:00 Test Item Value Reference Range Interpretation Comments Macrocyte (test code = 1+ *ABN*(11/26/21 Macrocyte) 4:09 AM) [facility]EVSR5785[facility] 09:09:00 Test Item Value Reference Range Interpretation Comments Interleukin 6 (test code = Interleukin 14.71 6) [place] 646932-06-29 09:09:00 Test Item Value Reference Range Interpretation Comments C-REACTIVE PROTEIN (test code = 95.9 C-REACTIVE PROTEIN) [facility]2022-06-29 09:09:00 Test Item Value Reference Range Interpretation Comments Ferritin Lvl (test code = Ferritin Lvl) 1543 22-275 [place] 378062-06-29 09:09:00 Test Item Value Reference Range Interpretation Comments Glucose Lvl (test code = Glucose Lvl) 288 70-99 [place] 378062-06-29 09:09:00 Test Item Value Reference Range Interpretation Comments BUN (test code = BUN) 40 7-22 [place] 378062-06-29 09:09:00 Test Item Value Reference Range Interpretation Comments Creatinine Lvl (test code = Creatinine 6.23 0.50-1.40 Lvl) [facility]2022-06-29 09:09:00 Test Item Value Reference Range Interpretation Comments Sodium Lvl (test code = Sodium Lvl) 134 135-145 [facility]2022-06-29 09:09:00 Test Item Value Reference Range Interpretation Comments Potassium Lvl (test code = Potassium 4.5 3.5-5.1 Lvl) [place] 378062-06-29 09:09:00 Test Item Value Reference Range Interpretation Comments Chloride Lvl (test code = Chloride Lvl) 96 95-109 [facility]2022-06-29 09:09:00 Test Item Value Reference Range Interpretation Comments CO2 (test code = CO2) 29 24-32 [place] 378062-06-29 09:09:00 Test Item Value Reference Range Interpretation Comments AGAP (test code = AGAP) 13.5 10.0-20.0 [place] 378062-06-29 09:09:00 Test Item Value Reference Range Interpretation Comments Calcium Lvl (test code = Calcium Lvl) 9.1 8.5-10.5 [place] 378062-06-29 09:09:00 Test Item Value Reference Range Interpretation Comments B/C Ratio (test code = B/C Ratio) 6 1 6-25 [facility] [id number] 09:09:00 Test Item Value Reference Range Interpretation Comments Total Protein (test code = Total 6.3 6.4-8.4 Protein) [place] 378062-06-29 09:09:00 Test Item Value Reference Range Interpretation Comments Albumin Lvl (test code = Albumin Lvl) 2.5 3.5-5.0 [facility] [id number] 09:09:00 Test Item Value Reference Range Interpretation Comments Globulin (test code = Globulin) 3.8 2.7-4.2 [facility] [place] [id number] 09:09:00 Test Item Value Reference Range Interpretation Comments A/G Ratio (test code = A/G Ratio) 0.7 1 0.7-1.6 [facility] [place] [id number] 09:09:00 Test Item Value Reference Range Interpretation Comments ALT (test code = ALT) 38 See_Comment [Auto mated message] The system which ge nerated this result transmit swathi reference range : <=65. The reference range was not used to interpr et this result as deny l/abnormal. [facility] [place] [id number] 09:09:00 Test Item Value Reference Range Interpretation Comments AST (test code = AST) 31 See_Comment [Auto mated message] The system which ge nerated this result transmit swathi reference range : <=37. The reference range was not used to interpr et this result as deny l/abnormal. [facility] [place] TPHIZ5829-66-45 09:09:00 Test Item Value Reference Range Interpretation Comments Alk Phos (test code = Alk Phos) 357 39-136 [facility] [place] [id number] 09:09:00 Test Item Value Reference Range Interpretation Comments Bili Total (test code = Bili Total) 1.0 0.2-1.3 [facility] [place] [id number] 09:09:00 Test Item Value Reference Range Interpretation Comments eGFR (test code = eGFR) 8 [facility] [place] SBUJI6626-21-32 09:09:00 Test Item Value Reference Range Interpretation Comments Magnesium Lvl (test code = Magnesium 2.0 1.8-2.4 Lvl) [facility]2022-06-29 09:09:00 Test Item Value Reference Range Interpretation Comments LDH (test code = LDH) 251 98-192 [facility]2022-06-29 09:09:00 Test Item Value Reference Range Interpretation Comments Procalcitonin Lvl (test 0.51 See_Comment [Au tomated message] code = Procalcitonin Lvl) e system which generated this result transmitted ref erence range: <=0.10. The reference range was not used to interpr et this result as normal/abnormal . [facility] LancasterOgazprxPBXCHWUASP9673-66-26 09:09:00 Test Item Value Reference Range Interpretation Comments D-Dimer (test code = D-Dimer) 5.06 [place] 247202-06-29 09:09:00 Test Item Value Reference Range Interpretation Comments WBC (test code = WBC) 4.8 3.7-10.4 [facility] LancasterHzxjgatBUVQLUJLEA2059-17-22 09:09:00 Test Item Value Reference Range Interpretation Comments RBC (test code = RBC) 2.14 4.70-6.10 [facility] LancasterCmiccpmRMPCDVYSXP7864-93-98 09:09:00 Test Item Value Reference Range Interpretation Comments Hgb (test code = Hgb) 7.7 14.0-18.0 [facility] LancasterOqrvmzfSJGOYLCQMQ8172-66-22 09:09:00 Test Item Value Reference Range Interpretation Comments Hct (test code = Hct) 22.8 42.0-54.0 [place] 247202-06-29 09:09:00 Test Item Value Reference Range Interpretation Comments MCV (test code = MCV) 106.5 80.0-94.0 [facility] LancasterQhnubfoQXTSOLZWHU4758-55-82 09:09:00 Test Item Value Reference Range Interpretation Comments MCH (test code = MCH) 36.1 pg 27.0-31.0 [facility] LancasterLwvfiukGBEAYHQWPY1612-72-43 09:09:00 Test Item Value Reference Range Interpretation Comments MCHC (test code = MCHC) 33.9 32.0-36.0 [place] 247202-06-29 09:09:00 Test Item Value Reference Range Interpretation Comments RDW (test code = RDW) 21.8 11.5-14.5 [place] 247202-06-29 09:09:00 Test Item Value Reference Range Interpretation Comments Platelet (test code = Platelet) 176 133-450 [facility] LancasterCcixtdcLZPIHZYDVW2078-32-74 09:09:00 Test Item Value Reference Range Interpretation Comments MPV (test code = MPV) 8.2 7.4-10.4 [place] 247202-06-29 09:09:00 Test Item Value Reference Range Interpretation Comments Segs (test code = Segs) 83.6 45.0-75.0 [place] 247202-06-29 09:09:00 Test Item Value Reference Range Interpretation Comments Lymphocytes (test code = Lymphocytes) 10.7 20.0-40.0 [place] 247202-06-29 09:09:00 Test Item Value Reference Range Interpretation Comments Monocytes (test code = Monocytes) 4.9 2.0-12.0 [place] 247202-06-29 09:09:00 Test Item Value Reference Range Interpretation Comments Eosinophils (test code = 0.4 See_Comment [A utomated message] The Eosinophils) system which ge nerated this result tra nsmitted reference range : <=4.0. The reference r samantha was not used to int erpret this result as normal/abnormal . [facility] LancasterFivvvhmABIETHGPVN9731-79-70 09:09:00 Test Item Value Reference Range Interpretation Comments Basophils (test code = 0.4 See_Comment [Aut omated message] The Basophils) system which ge nerated this result tra nsmitted reference range : <=1.0. The reference r samantha was not used to int erpret this result as normal/abnormal . [facility] LancasterBbgkhiwMWFPYTSSDD6776-63-55 09:09:00 Test Item Value Reference Range Interpretation Comments Neutrophils # (test code = Neutrophils 4.0 1.5-8.1 #) [place] 247202-06-29 09:09:00 Test Item Value Reference Range Interpretation Comments Lymphocytes # (test code = Lymphocytes 0.5 1.0-5.5 #) [facility] LancasterDzwtzepRKXLXNRGBC0388-01-02 09:09:00 Test Item Value Reference Range Interpretation Comments Monocytes # (test code 0.2 See_Comment [Aut omated message] The = Monocytes #) system which generated this result tra nsmitted reference range : <=0.8. The reference r samantha was not used to int erpret this result as normal/abnormal . [facility] LancasterNrtwolfQSGLIHQCQF5495-28-57 09:09:00 Test Item Value Reference Range Interpretation Comments Macrocyte (test code = 1+ *ABN*(11/26/21 Macrocyte) 4:09 AM) [place] 646932-06-29 09:09:00 Test Item Value Reference Range Interpretation Comments Interleukin 6 (test code = Interleukin 14.71 6) [place] 646932-06-29 09:09:00 Test Item Value Reference Range Interpretation Comments C-REACTIVE PROTEIN (test code = 95.9 C-REACTIVE PROTEIN) [place] 247202-06-28 12:33:00 Test Item Value Reference Range Interpretation Comments Segs (test code = Segs) 84.8 45.0-75.0 [place] 247202-06-28 12:33:00 Test Item Value Reference Range Interpretation Comments Lymphocytes (test code = Lymphocytes) 11.6 20.0-40.0 [place] 247202-06-28 12:33:00 Test Item Value Reference Range Interpretation Comments Monocytes (test code = Monocytes) 2.8 2.0-12.0 [facility] LancasterCdhvyddFAUTSGSCYQ6753-18-27 12:33:00 Test Item Value Reference Range Interpretation Comments Eosinophils (test code = 0.4 See_Comment [A utomated message] The Eosinophils) system which ge nerated this result tra nsmitted reference range : <=4.0. The reference r samantha was not used to int erpret this result as normal/abnormal . [facility] LancasterTqluqetLISPDUIZTL0278-68-03 12:33:00 Test Item Value Reference Range Interpretation Comments Basophils (test code = 0.4 See_Comment [Aut omated message] The Basophils) system which ge nerated this result tra nsmitted reference range : <=1.0. The reference r samantha was not used to int erpret this result as normal/abnormal . [facility] LancasterGadxatoGURBLQUZQJ7712-57-48 12:33:00 Test Item Value Reference Range Interpretation Comments Neutrophils # (test code = Neutrophils 4.4 1.5-8.1 #) [facility] LancasterQzqrlxjVMVTGOBJHW3482-85-04 12:33:00 Test Item Value Reference Range Interpretation Comments Lymphocytes # (test code = Lymphocytes 0.6 1.0-5.5 #) [facility] LancasterAjyiboaEYDPDNOUTZ9731-44-14 12:33:00 Test Item Value Reference Range Interpretation Comments Monocytes # (test code 0.1 See_Comment [Aut omated message] The = Monocytes #) system which generated this result tra nsmitted reference range : <=0.8. The reference r samantha was not used to int erpret this result as normal/abnormal . [facility] LancasterMefwvqmZBMACETIRI5655-64-81 12:33:00 Test Item Value Reference Range Interpretation Comments Macrocyte (test code = 1+ *ABN*(11/25/21 Macrocyte) 7:33 AM) [facility] LancasterDdbqwhlRULEDDPZMW5757-46-91 12:33:00 Test Item Value Reference Range Interpretation Comments WBC (test code = WBC) 5.2 3.7-10.4 [facility] LancasterTkhedgsCAEBDFXZAC4039-61-82 12:33:00 Test Item Value Reference Range Interpretation Comments RBC (test code = RBC) 2.18 4.70-6.10 [facility] LancasterWhdvqnaUGYZOGPCKV7468-04-93 12:33:00 Test Item Value Reference Range Interpretation Comments Hgb (test code = Hgb) 7.8 14.0-18.0 [facility] LancasterOoaykduNFADOMTNRE7162-19-55 12:33:00 Test Item Value Reference Range Interpretation Comments Hct (test code = Hct) 23.6 42.0-54.0 [facility] LancasterTwjvvfyOSWQVVSVSI8133-40-34 12:33:00 Test Item Value Reference Range Interpretation Comments MCV (test code = MCV) 108.4 80.0-94.0 [facility] LancasterIzrmzjnIUHITUCYEM0253-38-60 12:33:00 Test Item Value Reference Range Interpretation Comments MCH (test code = MCH) 35.9 pg 27.0-31.0 [facility] LancasterZjcvtqtCXLDNXONZF5012-46-31 12:33:00 Test Item Value Reference Range Interpretation Comments MCHC (test code = MCHC) 33.1 32.0-36.0 [facility] LancasterTadsqicMMLRWPBMKW7168-41-14 12:33:00 Test Item Value Reference Range Interpretation Comments RDW (test code = RDW) 21.5 11.5-14.5 [facility] LancasterSfochlwPICEOFDYVE5962-16-61 12:33:00 Test Item Value Reference Range Interpretation Comments Platelet (test code = Platelet) 167 133-450 [place] 247202-06-28 12:33:00 Test Item Value Reference Range Interpretation Comments MPV (test code = MPV) 7.6 7.4-10.4 [place] 247202-06-28 12:33:00 Test Item Value Reference Range Interpretation Comments Segs (test code = Segs) 84.8 45.0-75.0 [place] [address]-06-28 12:33:00 Test Item Value Reference Range Interpretation Comments Lymphocytes (test code = Lymphocytes) 11.6 20.0-40.0 [place] [address]-06-28 12:33:00 Test Item Value Reference Range Interpretation Comments Monocytes (test code = Monocytes) 2.8 2.0-12.0 [place] [address]-06-28 12:33:00 Test Item Value Reference Range Interpretation Comments Eosinophils (test code = 0.4 See_Comment [A utomated message] The Eosinophils) system which ge nerated this result tra nsmitted reference range : <=4.0. The reference r samantha was not used to int erpret this result as normal/abnormal . [place] 247202-06-28 12:33:00 Test Item Value Reference Range Interpretation Comments Basophils (test code = 0.4 See_Comment [Aut omated message] The Basophils) system which ge nerated this result tra nsmitted reference range : <=1.0. The reference r samantha was not used to int erpret this result as normal/abnormal . [place] 247202-06-28 12:33:00 Test Item Value Reference Range Interpretation Comments Neutrophils # (test code = Neutrophils 4.4 1.5-8.1 #) [place] 247202-06-28 12:33:00 Test Item Value Reference Range Interpretation Comments Lymphocytes # (test code = Lymphocytes 0.6 1.0-5.5 #) [place] [address]-06-28 12:33:00 Test Item Value Reference Range Interpretation Comments Monocytes # (test code 0.1 See_Comment [Aut omated message] The = Monocytes #) system which generated this result tra nsmitted reference range : <=0.8. The reference r samantha was not used to int erpret this result as normal/abnormal . [place] [address]-06-28 12:33:00 Test Item Value Reference Range Interpretation Comments Macrocyte (test code = 1+ *ABN*(11/25/21 Macrocyte) 7:33 AM) [facility] LancasterFmabyfiYFFPSWZHPH6395-68-04 12:33:00 Test Item Value Reference Range Interpretation Comments WBC (test code = WBC) 5.2 3.7-10.4 [place] 247202-06-28 12:33:00 Test Item Value Reference Range Interpretation Comments RBC (test code = RBC) 2.18 4.70-6.10 [facility] LancasterXwxwjspSLUTBGDUYX8858-11-26 12:33:00 Test Item Value Reference Range Interpretation Comments Hgb (test code = Hgb) 7.8 14.0-18.0 [place] 247202-06-28 12:33:00 Test Item Value Reference Range Interpretation Comments Hct (test code = Hct) 23.6 42.0-54.0 [place] 247202-06-28 12:33:00 Test Item Value Reference Range Interpretation Comments MCV (test code = MCV) 108.4 80.0-94.0 [facility] LancasterGroqvemMHEZVCNFKZ3736-23-04 12:33:00 Test Item Value Reference Range Interpretation Comments MCH (test code = MCH) 35.9 pg 27.0-31.0 [facility] LancasterAvsbbksVXYPCQKFGF3932-40-68 12:33:00 Test Item Value Reference Range Interpretation Comments MCHC (test code = MCHC) 33.1 32.0-36.0 [facility] LancasterUghvysmZBTSRKHFNE8691-96-82 12:33:00 Test Item Value Reference Range Interpretation Comments RDW (test code = RDW) 21.5 11.5-14.5 [facility] LancasterIagblcmKIYNIBNWUU8862-07-56 12:33:00 Test Item Value Reference Range Interpretation Comments Platelet (test code = Platelet) 167 133-450 [facility] LancasterPbxyobvYLSFLTQZOW1219-23-28 12:33:00 Test Item Value Reference Range Interpretation Comments MPV (test code = MPV) 7.6 7.4-10.4 [place] 247202-06-28 12:33:00 Test Item Value Reference Range Interpretation Comments Segs (test code = Segs) 84.8 45.0-75.0 [facility] LancasterCvcssgnPAEECYHMRQ9121-13-48 12:33:00 Test Item Value Reference Range Interpretation Comments Lymphocytes (test code = Lymphocytes) 11.6 20.0-40.0 [facility] LancasterGvsrzkiPAXVMZNJZM3082-24-04 12:33:00 Test Item Value Reference Range Interpretation Comments Monocytes (test code = Monocytes) 2.8 2.0-12.0 [place] 247202-06-28 12:33:00 Test Item Value Reference Range Interpretation Comments Eosinophils (test code = 0.4 See_Comment [A utomated message] The Eosinophils) system which ge nerated this result tra nsmitted reference range : <=4.0. The reference r samantha was not used to int erpret this result as normal/abnormal . [facility] LancasterYamwbkwOBXSVMDWMX1516-92-18 12:33:00 Test Item Value Reference Range Interpretation Comments Basophils (test code = 0.4 See_Comment [Aut omated message] The Basophils) system which ge nerated this result tra nsmitted reference range : <=1.0. The reference r samantha was not used to int erpret this result as normal/abnormal . [facility] LancasterUyipzddOPKFGBHYXN9718-93-18 12:33:00 Test Item Value Reference Range Interpretation Comments Neutrophils # (test code = Neutrophils 4.4 1.5-8.1 #) [facility] LancasterVeqesnuTUYNQZTLSM0172-11-62 12:33:00 Test Item Value Reference Range Interpretation Comments Lymphocytes # (test code = Lymphocytes 0.6 1.0-5.5 #) [place] 247202-06-28 12:33:00 Test Item Value Reference Range Interpretation Comments Monocytes # (test code 0.1 See_Comment [Aut omated message] The = Monocytes #) system which generated this result tra nsmitted reference range : <=0.8. The reference r samantha was not used to int erpret this result as normal/abnormal . [facility] LancasterEajcofqUQDJFPSOMF5775-71-06 12:33:00 Test Item Value Reference Range Interpretation Comments Macrocyte (test code = 1+ *ABN*(11/25/21 Macrocyte) 7:33 AM) [facility] LancasterPvugijuTVWOUDFUQQ3531-19-50 12:33:00 Test Item Value Reference Range Interpretation Comments WBC (test code = WBC) 5.2 3.7-10.4 [facility] LancasterFfffktwUMPTCQLUVI0708-04-59 12:33:00 Test Item Value Reference Range Interpretation Comments RBC (test code = RBC) 2.18 4.70-6.10 [facility] [place]mad[place]rlZODEDOAMZD7631-58-08 12:33:00 Test Item Value Reference Range Interpretation Comments Hgb (test code = Hgb) 7.8 14.0-18.0 [place] 247202-06-28 12:33:00 Test Item Value Reference Range Interpretation Comments Hct (test code = Hct) 23.6 42.0-54.0 [place] 247202-06-28 12:33:00 Test Item Value Reference Range Interpretation Comments MCV (test code = MCV) 108.4 80.0-94.0 [place] 247202-06-28 12:33:00 Test Item Value Reference Range Interpretation Comments MCH (test code = MCH) 35.9 pg 27.0-31.0 [place] 247202-06-28 12:33:00 Test Item Value Reference Range Interpretation Comments MCHC (test code = MCHC) 33.1 32.0-36.0 [place] 247202-06-28 12:33:00 Test Item Value Reference Range Interpretation Comments RDW (test code = RDW) 21.5 11.5-14.5 [place] 247202-06-28 12:33:00 Test Item Value Reference Range Interpretation Comments Platelet (test code = Platelet) 167 133-450 [facility] [place]MqnprynNPPRCTJOTJ9045-48-47 12:33:00 Test Item Value Reference Range Interpretation Comments MPV (test code = MPV) 7.6 7.4-10.4 [place] 247202-06-28 12:33:00 Test Item Value Reference Range Interpretation Comments Segs (test code = Segs) 84.8 45.0-75.0 [place] 247202-06-28 12:33:00 Test Item Value Reference Range Interpretation Comments Lymphocytes (test code = Lymphocytes) 11.6 20.0-40.0 [place] [address]-06-28 12:33:00 Test Item Value Reference Range Interpretation Comments Monocytes (test code = Monocytes) 2.8 2.0-12.0 [place] 247202-06-28 12:33:00 Test Item Value Reference Range Interpretation Comments Eosinophils (test code = 0.4 See_Comment [A utomated message] The Eosinophils) system which ge nerated this result tra nsmitted reference range : <=4.0. The reference r samantha was not used to int erpret this result as normal/abnormal . [facility] LancasterVyzrzbiABEAIASIEK7178-30-58 12:33:00 Test Item Value Reference Range Interpretation Comments Basophils (test code = 0.4 See_Comment [Aut omated message] The Basophils) system which ge nerated this result tra nsmitted reference range : <=1.0. The reference r samantha was not used to int erpret this result as normal/abnormal . [facility] LancasterFsoiptbUERVNABMIM4948-88-27 12:33:00 Test Item Value Reference Range Interpretation Comments Neutrophils # (test code = Neutrophils 4.4 1.5-8.1 #) [facility] LancasterZhzitdlASGDZKWXUI8528-09-79 12:33:00 Test Item Value Reference Range Interpretation Comments Lymphocytes # (test code = Lymphocytes 0.6 1.0-5.5 #) [facility] LancasterHuviaruNQXNDBVASK4059-53-55 12:33:00 Test Item Value Reference Range Interpretation Comments Monocytes # (test code 0.1 See_Comment [Aut omated message] The = Monocytes #) system which generated this result tra nsmitted reference range : <=0.8. The reference r samantha was not used to int erpret this result as normal/abnormal . [facility] LancasterFalqwgyCZFDLEHKDQ3220-42-94 12:33:00 Test Item Value Reference Range Interpretation Comments Macrocyte (test code = 1+ *ABN*(11/25/21 Macrocyte) 7:33 AM) [facility] LancasterEtzqccxVRFOAFWWPQ9291-43-69 12:33:00 Test Item Value Reference Range Interpretation Comments WBC (test code = WBC) 5.2 3.7-10.4 [place] 247202-06-28 12:33:00 Test Item Value Reference Range Interpretation Comments RBC (test code = RBC) 2.18 4.70-6.10 [place] 247202-06-28 12:33:00 Test Item Value Reference Range Interpretation Comments Hgb (test code = Hgb) 7.8 14.0-18.0 [place] 247202-06-28 12:33:00 Test Item Value Reference Range Interpretation Comments Hct (test code = Hct) 23.6 42.0-54.0 [place] 247202-06-28 12:33:00 Test Item Value Reference Range Interpretation Comments MCV (test code = MCV) 108.4 80.0-94.0 [place] [address]-06-28 12:33:00 Test Item Value Reference Range Interpretation Comments MCH (test code = MCH) 35.9 pg 27.0-31.0 [place] 247202-06-28 12:33:00 Test Item Value Reference Range Interpretation Comments MCHC (test code = MCHC) 33.1 32.0-36.0 [place] 247202-06-28 12:33:00 Test Item Value Reference Range Interpretation Comments RDW (test code = RDW) 21.5 11.5-14.5 [place] 247202-06-28 12:33:00 Test Item Value Reference Range Interpretation Comments Platelet (test code = Platelet) 167 133-450 [place] 247202-06-28 12:33:00 Test Item Value Reference Range Interpretation Comments MPV (test code = MPV) 7.6 7.4-10.4 [place] 247202-06-28 12:33:00 Test Item Value Reference Range Interpretation Comments Segs (test code = Segs) 84.8 45.0-75.0 [place] 247202-06-28 12:33:00 Test Item Value Reference Range Interpretation Comments Lymphocytes (test code = Lymphocytes) 11.6 20.0-40.0 [place] 247202-06-28 12:33:00 Test Item Value Reference Range Interpretation Comments Monocytes (test code = Monocytes) 2.8 2.0-12.0 [place] [address]-06-28 12:33:00 Test Item Value Reference Range Interpretation Comments Eosinophils (test code = 0.4 See_Comment [A utomated message] The Eosinophils) system which ge nerated this result tra nsmitted reference range : <=4.0. The reference r samantha was not used to int erpret this result as normal/abnormal . [place] 247202-06-28 12:33:00 Test Item Value Reference Range Interpretation Comments Basophils (test code = 0.4 See_Comment [Aut omated message] The Basophils) system which ge nerated this result tra nsmitted reference range : <=1.0. The reference r samantha was not used to int erpret this result as normal/abnormal . [place] 247202-06-28 12:33:00 Test Item Value Reference Range Interpretation Comments Neutrophils # (test code = Neutrophils 4.4 1.5-8.1 #) [place] 247202-06-28 12:33:00 Test Item Value Reference Range Interpretation Comments Lymphocytes # (test code = Lymphocytes 0.6 1.0-5.5 #) [place] 247202-06-28 12:33:00 Test Item Value Reference Range Interpretation Comments Monocytes # (test code 0.1 See_Comment [Aut omated message] The = Monocytes #) system which generated this result tra nsmitted reference range : <=0.8. The reference r samantha was not used to int erpret this result as normal/abnormal . [place] 247202-06-28 12:33:00 Test Item Value Reference Range Interpretation Comments Macrocyte (test code = 1+ *ABN*(11/25/21 Macrocyte) 7:33 AM) [place] 247202-06-28 12:33:00 Test Item Value Reference Range Interpretation Comments WBC (test code = WBC) 5.2 3.7-10.4 [place] 247202-06-28 12:33:00 Test Item Value Reference Range Interpretation Comments RBC (test code = RBC) 2.18 4.70-6.10 [place] 247202-06-28 12:33:00 Test Item Value Reference Range Interpretation Comments Hgb (test code = Hgb) 7.8 14.0-18.0 [place] 247202-06-28 12:33:00 Test Item Value Reference Range Interpretation Comments Hct (test code = Hct) 23.6 42.0-54.0 [place] [address]-06-28 12:33:00 Test Item Value Reference Range Interpretation Comments MCV (test code = MCV) 108.4 80.0-94.0 [place] [address]-06-28 12:33:00 Test Item Value Reference Range Interpretation Comments MCH (test code = MCH) 35.9 pg 27.0-31.0 [place] 247202-06-28 12:33:00 Test Item Value Reference Range Interpretation Comments MCHC (test code = MCHC) 33.1 32.0-36.0 [place] 247202-06-28 12:33:00 Test Item Value Reference Range Interpretation Comments RDW (test code = RDW) 21.5 11.5-14.5 [place] 247202-06-28 12:33:00 Test Item Value Reference Range Interpretation Comments Platelet (test code = Platelet) 167 133-450 [place] 247202-06-28 12:33:00 Test Item Value Reference Range Interpretation Comments MPV (test code = MPV) 7.6 7.4-10.4 [place] 247202-06-28 12:33:00 Test Item Value Reference Range Interpretation Comments Segs (test code = Segs) 84.8 45.0-75.0 [place] 247202-06-28 12:33:00 Test Item Value Reference Range Interpretation Comments Lymphocytes (test code = Lymphocytes) 11.6 20.0-40.0 [place] 247202-06-28 12:33:00 Test Item Value Reference Range Interpretation Comments Monocytes (test code = Monocytes) 2.8 2.0-12.0 [place] 247202-06-28 12:33:00 Test Item Value Reference Range Interpretation Comments Eosinophils (test code = 0.4 See_Comment [A utomated message] The Eosinophils) system which ge nerated this result tra nsmitted reference range : <=4.0. The reference r samantha was not used to int erpret this result as normal/abnormal . [facility] LancasterDcfbqibXZTFJEBWFL0063-98-07 12:33:00 Test Item Value Reference Range Interpretation Comments Basophils (test code = 0.4 See_Comment [Aut omated message] The Basophils) system which ge nerated this result tra nsmitted reference range : <=1.0. The reference r samantha was not used to int erpret this result as normal/abnormal . [place] 247202-06-28 12:33:00 Test Item Value Reference Range Interpretation Comments Neutrophils # (test code = Neutrophils 4.4 1.5-8.1 #) [place] 247202-06-28 12:33:00 Test Item Value Reference Range Interpretation Comments Lymphocytes # (test code = Lymphocytes 0.6 1.0-5.5 #) [facility] LancasterIqcxphwSKHGKEXINC0427-09-53 12:33:00 Test Item Value Reference Range Interpretation Comments Monocytes # (test code 0.1 See_Comment [Aut omated message] The = Monocytes #) system which generated this result tra nsmitted reference range : <=0.8. The reference r samantha was not used to int erpret this result as normal/abnormal . [facility] LancasterHcrtozsDGMXQRHTQM4101-26-45 12:33:00 Test Item Value Reference Range Interpretation Comments Macrocyte (test code = 1+ *ABN*(11/25/21 Macrocyte) 7:33 AM) [facility] LancasterZrjykhtEUUJLLCFOU9602-23-78 12:33:00 Test Item Value Reference Range Interpretation Comments WBC (test code = WBC) 5.2 3.7-10.4 [facility] LancasterYyhkxjaHADNDFTZMM4906-70-99 12:33:00 Test Item Value Reference Range Interpretation Comments RBC (test code = RBC) 2.18 4.70-6.10 [facility] LancasterHtgnqpvRJPRUSONPN8165-52-60 12:33:00 Test Item Value Reference Range Interpretation Comments Hgb (test code = Hgb) 7.8 14.0-18.0 [place] 247202-06-28 12:33:00 Test Item Value Reference Range Interpretation Comments Hct (test code = Hct) 23.6 42.0-54.0 [facility] LancasterNxsxhbzSCZHEGDFKP8396-50-82 12:33:00 Test Item Value Reference Range Interpretation Comments MCV (test code = MCV) 108.4 80.0-94.0 [place] 247202-06-28 12:33:00 Test Item Value Reference Range Interpretation Comments MCH (test code = MCH) 35.9 pg 27.0-31.0 [place] 247202-06-28 12:33:00 Test Item Value Reference Range Interpretation Comments MCHC (test code = MCHC) 33.1 32.0-36.0 [place] 247202-06-28 12:33:00 Test Item Value Reference Range Interpretation Comments RDW (test code = RDW) 21.5 11.5-14.5 [place] 247202-06-28 12:33:00 Test Item Value Reference Range Interpretation Comments Platelet (test code = Platelet) 167 133-450 [facility] LancasterJbdvysxGLPHQQGRCO8740-96-37 12:33:00 Test Item Value Reference Range Interpretation Comments MPV (test code = MPV) 7.6 7.4-10.4 [facility]2022-06-28 11:17:00 Test Item Value Reference Range Interpretation Comments Vitamin B12 Lvl (test code = Vitamin 1508 B12 Lvl) [facility]2022-06-28 11:17:00 Test Item Value Reference Range Interpretation Comments Folate Lvl (test code = Folate Lvl) 22.3 [facility]2022-06-28 11:17:00 Test Item Value Reference Range Interpretation Comments Ferritin Lvl (test code = Ferritin Lvl) 1423 22-275 [facility]2022-06-28 11:17:00 Test Item Value Reference Range Interpretation Comments Glucose Lvl (test code = Glucose Lvl) 205 70-99 [facility]2022-06-28 11:17:00 Test Item Value Reference Range Interpretation Comments BUN (test code = BUN) 60 7-22 [place] 378062-06-28 11:17:00 Test Item Value Reference Range Interpretation Comments Creatinine Lvl (test code = Creatinine 8.46 0.50-1.40 Lvl) [facility]2022-06-28 11:17:00 Test Item Value Reference Range Interpretation Comments Sodium Lvl (test code = Sodium Lvl) 131 135-145 [facility]2022-06-28 11:17:00 Test Item Value Reference Range Interpretation Comments Potassium Lvl (test code = Potassium 5.2 3.5-5.1 Lvl) [facility]2022-06-28 11:17:00 Test Item Value Reference Range Interpretation Comments Chloride Lvl (test code = Chloride Lvl) 93 95-109 [place] 378062-06-28 11:17:00 Test Item Value Reference Range Interpretation Comments CO2 (test code = CO2) 29 24-32 [facility]2022-06-28 11:17:00 Test Item Value Reference Range Interpretation Comments Calcium Lvl (test code = Calcium Lvl) 8.7 8.5-10.5 [facility]2022-06-28 11:17:00 Test Item Value Reference Range Interpretation Comments Total Protein (test code = Total 6.0 6.4-8.4 Protein) [facility] [id number] 11:17:00 Test Item Value Reference Range Interpretation Comments Albumin Lvl (test code = Albumin Lvl) 2.6 3.5-5.0 [facility] [id number] 11:17:00 Test Item Value Reference Range Interpretation Comments ALT (test code = ALT) 43 See_Comment [Auto mated message] The system which ge nerated this result transmit swathi reference range : <=65. The reference range was not used to interpr et this result as deny l/abnormal. [facility] [id number] 11:17:00 Test Item Value Reference Range Interpretation Comments AST (test code = AST) 35 See_Comment [Auto mated message] The system which ge nerated this result transmit swathi reference range : <=37. The reference range was not used to interpr et this result as deny l/abnormal. [facility] [id number] 11:17:00 Test Item Value Reference Range Interpretation Comments Alk Phos (test code = Alk Phos) 385 39-136 [facility] [place] [id number] 11:17:00 Test Item Value Reference Range Interpretation Comments Bili Total (test code = Bili Total) 1.2 0.2-1.3 [facility] [id number] 11:17:00 Test Item Value Reference Range Interpretation Comments AGAP (test code = AGAP) 14.2 10.0-20.0 [facility] [place] [id number] 11:17:00 Test Item Value Reference Range Interpretation Comments B/C Ratio (test code = B/C Ratio) 7 1 6-25 [facility] [id number] 11:17:00 Test Item Value Reference Range Interpretation Comments Globulin (test code = Globulin) 3.4 2.7-4.2 [facility] [id number] 11:17:00 Test Item Value Reference Range Interpretation Comments A/G Ratio (test code = A/G Ratio) 0.8 1 0.7-1.6 [facility] [id number] 11:17:00 Test Item Value Reference Range Interpretation Comments eGFR (test code = eGFR) 6 [facility]57 11:17:00 Test Item Value Reference Range Interpretation Comments Magnesium Lvl (test code = Magnesium 1.9 1.8-2.4 Lvl) [facility]2022-06-28 11:17:00 Test Item Value Reference Range Interpretation Comments LDH (test code = LDH) 297 98-192 [facility]2022-06-28 11:17:00 Test Item Value Reference Range Interpretation Comments Procalcitonin Lvl (test 0.63 See_Comment [Au tomated message] code = Procalcitonin Lvl) e system which generated this result transmitted ref erence range: <=0.10. The reference range was not used to interpr et this result as normal/abnormal . [facility] LancasterAcacqueDCZTJHNEES8698-27-58 11:17:00 Test Item Value Reference Range Interpretation Comments D-Dimer (test code = D-Dimer) 5.33 [place] 646932-06-28 11:17:00 Test Item Value Reference Range Interpretation Comments Hep Bs Ag (test code Negative *NA*(11/25/21 = Hep Bs Ag) 6:17 AM) [place] 646932-06-28 11:17:00 Test Item Value Reference Range Interpretation Comments C-REACTIVE PROTEIN (test code = 134.0 C-REACTIVE PROTEIN) [place] 646932-06-28 11:17:00 Test Item Value Reference Range Interpretation Comments Interleukin 6 (test code = Interleukin 25.99 6) [facility]2022-06-28 11:17:00 Test Item Value Reference Range Interpretation Comments Vitamin B12 Lvl (test code = Vitamin 1508 B12 Lvl) [facility]2022-06-28 11:17:00 Test Item Value Reference Range Interpretation Comments Folate Lvl (test code = Folate Lvl) 22.3 [facility]2022-06-28 11:17:00 Test Item Value Reference Range Interpretation Comments Ferritin Lvl (test code = Ferritin Lvl) 1423 98-741 [facility]2022-06-28 11:17:00 Test Item Value Reference Range Interpretation Comments Glucose Lvl (test code = Glucose Lvl) 205 70-99 [facility]2022-06-28 11:17:00 Test Item Value Reference Range Interpretation Comments BUN (test code = BUN) 60 7-22 [place] 378062-06-28 11:17:00 Test Item Value Reference Range Interpretation Comments Creatinine Lvl (test code = Creatinine 8.46 0.50-1.40 Lvl) [place] 378062-06-28 11:17:00 Test Item Value Reference Range Interpretation Comments Sodium Lvl (test code = Sodium Lvl) 131 135-145 [place] 378062-06-28 11:17:00 Test Item Value Reference Range Interpretation Comments Potassium Lvl (test code = Potassium 5.2 3.5-5.1 Lvl) [place] 378062-06-28 11:17:00 Test Item Value Reference Range Interpretation Comments Chloride Lvl (test code = Chloride Lvl) 93 95-109 [place] 378062-06-28 11:17:00 Test Item Value Reference Range Interpretation Comments CO2 (test code = CO2) 29 24-32 [place] 378062-06-28 11:17:00 Test Item Value Reference Range Interpretation Comments Calcium Lvl (test code = Calcium Lvl) 8.7 8.5-10.5 [place] 378062-06-28 11:17:00 Test Item Value Reference Range Interpretation Comments Total Protein (test code = Total 6.0 6.4-8.4 Protein) [place] 378062-06-28 11:17:00 Test Item Value Reference Range Interpretation Comments Albumin Lvl (test code = Albumin Lvl) 2.6 3.5-5.0 [place] 378062-06-28 11:17:00 Test Item Value Reference Range Interpretation Comments ALT (test code = ALT) 43 See_Comment [Auto mated message] The system which ge nerated this result transmit swathi reference range : <=65. The reference range was not used to interpr et this result as deny l/abnormal. [place] 378062-06-28 11:17:00 Test Item Value Reference Range Interpretation Comments AST (test code = AST) 35 See_Comment [Auto mated message] The system which ge nerated this result transmit swathi reference range : <=37. The reference range was not used to interpr et this result as deny l/abnormal. [place] 378062-06-28 11:17:00 Test Item Value Reference Range Interpretation Comments Alk Phos (test code = Alk Phos) 385 39-136 [facility]2022-06-28 11:17:00 Test Item Value Reference Range Interpretation Comments Bili Total (test code = Bili Total) 1.2 0.2-1.3 [facility]2022-06-28 11:17:00 Test Item Value Reference Range Interpretation Comments AGAP (test code = AGAP) 14.2 10.0-20.0 [facility]2022-06-28 11:17:00 Test Item Value Reference Range Interpretation Comments B/C Ratio (test code = B/C Ratio) 7 1 6-25 [facility]2022-06-28 11:17:00 Test Item Value Reference Range Interpretation Comments Globulin (test code = Globulin) 3.4 2.7-4.2 [facility]2022-06-28 11:17:00 Test Item Value Reference Range Interpretation Comments A/G Ratio (test code = A/G Ratio) 0.8 1 0.7-1.6 [facility]2022-06-28 11:17:00 Test Item Value Reference Range Interpretation Comments eGFR (test code = eGFR) 6 [facility]2022-06-28 11:17:00 Test Item Value Reference Range Interpretation Comments Magnesium Lvl (test code = Magnesium 1.9 1.8-2.4 Lvl) [facility]2022-06-28 11:17:00 Test Item Value Reference Range Interpretation Comments LDH (test code = LDH) 297 98-192 [facility]2022-06-28 11:17:00 Test Item Value Reference Range Interpretation Comments Procalcitonin Lvl (test 0.63 See_Comment [Au tomated message] code = Procalcitonin Lvl) Th e system which generated this result transmitted ref erence range: <=0.10. The reference range was not used to interpr et this result as normal/abnormal . [facility] 11:17:00 Test Item Value Reference Range Interpretation Comments D-Dimer (test code = D-Dimer) 5.33 [facility]at[facility]iaWAHYRKPEPG4816-12-46 11:17:00 Test Item Value Reference Range Interpretation Comments Hep Bs Ag (test code Negative *NA*(11/25/21 = Hep Bs Ag) 6:17 AM) [place] 646932-06-28 11:17:00 Test Item Value Reference Range Interpretation Comments C-REACTIVE PROTEIN (test code = 134.0 C-REACTIVE PROTEIN) [place] 646932-06-28 11:17:00 Test Item Value Reference Range Interpretation Comments Interleukin 6 (test code = Interleukin 25.99 6) [place] 640882-06-28 11:17:00 Test Item Value Reference Range Interpretation Comments Vitamin B12 Lvl (test code = Vitamin 1508 B12 Lvl) [facility]2022-06-28 11:17:00 Test Item Value Reference Range Interpretation Comments Folate Lvl (test code = Folate Lvl) 22.3 [facility]2022-06-28 11:17:00 Test Item Value Reference Range Interpretation Comments Ferritin Lvl (test code = Ferritin Lvl) 1423 22275 [place] 378062-06-28 11:17:00 Test Item Value Reference Range Interpretation Comments Glucose Lvl (test code = Glucose Lvl) 205 70-99 [facility]2022-06-28 11:17:00 Test Item Value Reference Range Interpretation Comments BUN (test code = BUN) 60 7-22 [facility]2022-06-28 11:17:00 Test Item Value Reference Range Interpretation Comments Creatinine Lvl (test code = Creatinine 8.46 0.50-1.40 Lvl) [facility]2022-06-28 11:17:00 Test Item Value Reference Range Interpretation Comments Sodium Lvl (test code = Sodium Lvl) 131 135-145 [place] 378062-06-28 11:17:00 Test Item Value Reference Range Interpretation Comments Potassium Lvl (test code = Potassium 5.2 3.5-5.1 Lvl) [place] 378062-06-28 11:17:00 Test Item Value Reference Range Interpretation Comments Chloride Lvl (test code = Chloride Lvl) 93 95-109 [place] 378062-06-28 11:17:00 Test Item Value Reference Range Interpretation Comments CO2 (test code = CO2) 29 24-32 [place] 378062-06-28 11:17:00 Test Item Value Reference Range Interpretation Comments Calcium Lvl (test code = Calcium Lvl) 8.7 8.5-10.5 [place] 378062-06-28 11:17:00 Test Item Value Reference Range Interpretation Comments Total Protein (test code = Total 6.0 6.4-8.4 Protein) [place] 378062-06-28 11:17:00 Test Item Value Reference Range Interpretation Comments Albumin Lvl (test code = Albumin Lvl) 2.6 3.5-5.0 [place] 378062-06-28 11:17:00 Test Item Value Reference Range Interpretation Comments ALT (test code = ALT) 43 See_Comment [Auto mated message] The system which ge nerated this result transmit swathi reference range : <=65. The reference range was not used to interpr et this result as deny l/abnormal. [place] 378062-06-28 11:17:00 Test Item Value Reference Range Interpretation Comments AST (test code = AST) 35 See_Comment [Auto mated message] The system which ge nerated this result transmit swathi reference range : <=37. The reference range was not used to interpr et this result as deny l/abnormal. [place] 378062-06-28 11:17:00 Test Item Value Reference Range Interpretation Comments Alk Phos (test code = Alk Phos) 385 39-136 [place] 378062-06-28 11:17:00 Test Item Value Reference Range Interpretation Comments Bili Total (test code = Bili Total) 1.2 0.2-1.3 [place] 378062-06-28 11:17:00 Test Item Value Reference Range Interpretation Comments AGAP (test code = AGAP) 14.2 10.0-20.0 [place] [place] [id number] 11:17:00 Test Item Value Reference Range Interpretation Comments B/C Ratio (test code = B/C Ratio) 7 1 6-25 [place] 378062-06-28 11:17:00 Test Item Value Reference Range Interpretation Comments Globulin (test code = Globulin) 3.4 2.7-4.2 [place] 378062-06-28 11:17:00 Test Item Value Reference Range Interpretation Comments A/G Ratio (test code = A/G Ratio) 0.8 1 0.7-1.6 [facility]2022-06-28 11:17:00 Test Item Value Reference Range Interpretation Comments eGFR (test code = eGFR) 6 [facility]2022-06-28 11:17:00 Test Item Value Reference Range Interpretation Comments Magnesium Lvl (test code = Magnesium 1.9 1.8-2.4 Lvl) [facility]2022-06-28 11:17:00 Test Item Value Reference Range Interpretation Comments LDH (test code = LDH) 297 98-192 [facility]2022-06-28 11:17:00 Test Item Value Reference Range Interpretation Comments Procalcitonin Lvl (test 0.63 See_Comment [Au tomated message] code = Procalcitonin Lvl) e system which generated this result transmitted ref erence range: <=0.10. The reference range was not used to interpr et this result as normal/abnormal . [facility]WndrwlmAZEGOYATHZ3665-77-[facility] 11:17:00 Test Item Value Reference Range Interpretation Comments D-Dimer (test code = D-Dimer) 5.33 [facility]DqsskomWYXSEZWJXM7162-13-19 11:17:00 Test Item Value Reference Range Interpretation Comments Hep Bs Ag (test code Negative *NA*(11/25/21 = Hep Bs Ag) 6:17 AM) [facility]ibr[facility]ULSBIWPAA5181[facility] 11:17:00 Test Item Value Reference Range Interpretation Comments C-REACTIVE PROTEIN (test code = 134.0 C-REACTIVE PROTEIN) [facility]HbgrqedNCGLQVVYJC3714-00-74 11:17:00 Test Item Value Reference Range Interpretation Comments Interleukin 6 (test code = Interleukin 25.99 6) [facility]2022-06-28 11:17:00 Test Item Value Reference Range Interpretation Comments Vitamin B12 Lvl (test code = Vitamin 1508 B12 Lvl) [facility]2022-06-28 11:17:00 Test Item Value Reference Range Interpretation Comments Folate Lvl (test code = Folate Lvl) 22.3 [facility]2022-06-28 11:17:00 Test Item Value Reference Range Interpretation Comments Ferritin Lvl (test code = Ferritin Lvl) 1423 22-653 [facility]2022-06-28 11:17:00 Test Item Value Reference Range Interpretation Comments Glucose Lvl (test code = Glucose Lvl) 205 70-99 [place] 378062-06-28 11:17:00 Test Item Value Reference Range Interpretation Comments BUN (test code = BUN) 60 7-22 [place] 378062-06-28 11:17:00 Test Item Value Reference Range Interpretation Comments Creatinine Lvl (test code = Creatinine 8.46 0.50-1.40 Lvl) [place] 378062-06-28 11:17:00 Test Item Value Reference Range Interpretation Comments Sodium Lvl (test code = Sodium Lvl) 131 135-145 [place] 378062-06-28 11:17:00 Test Item Value Reference Range Interpretation Comments Potassium Lvl (test code = Potassium 5.2 3.5-5.1 Lvl) [place] 378062-06-28 11:17:00 Test Item Value Reference Range Interpretation Comments Chloride Lvl (test code = Chloride Lvl) 93 95-109 [place] 378062-06-28 11:17:00 Test Item Value Reference Range Interpretation Comments CO2 (test code = CO2) 29 24-32 [place] 378062-06-28 11:17:00 Test Item Value Reference Range Interpretation Comments Calcium Lvl (test code = Calcium Lvl) 8.7 8.5-10.5 [place] 378062-06-28 11:17:00 Test Item Value Reference Range Interpretation Comments Total Protein (test code = Total 6.0 6.4-8.4 Protein) [place] 378062-06-28 11:17:00 Test Item Value Reference Range Interpretation Comments Albumin Lvl (test code = Albumin Lvl) 2.6 3.5-5.0 [place] 378062-06-28 11:17:00 Test Item Value Reference Range Interpretation Comments ALT (test code = ALT) 43 See_Comment [Auto mated message] The system which ge nerated this result transmit swathi reference range : <=65. The reference range was not used to interpr et this result as deny l/abnormal. [place] 378062-06-28 11:17:00 Test Item Value Reference Range Interpretation Comments AST (test code = AST) 35 See_Comment [Auto mated message] The system which ge nerated this result transmit swathi reference range : <=37. The reference range was not used to interpr et this result as deny l/abnormal. [facility]2022-06-28 11:17:00 Test Item Value Reference Range Interpretation Comments Alk Phos (test code = Alk Phos) 385 39-136 [facility]2022-06-28 11:17:00 Test Item Value Reference Range Interpretation Comments Bili Total (test code = Bili Total) 1.2 0.2-1.3 [facility]2022-06-28 11:17:00 Test Item Value Reference Range Interpretation Comments AGAP (test code = AGAP) 14.2 10.0-20.0 [place] 378062-06-28 11:17:00 Test Item Value Reference Range Interpretation Comments B/C Ratio (test code = B/C Ratio) 7 1 6-25 [facility]2022-06-28 11:17:00 Test Item Value Reference Range Interpretation Comments Globulin (test code = Globulin) 3.4 2.7-4.2 [facility]2022-06-28 11:17:00 Test Item Value Reference Range Interpretation Comments A/G Ratio (test code = A/G Ratio) 0.8 1 0.7-1.6 [facility]2022-06-28 11:17:00 Test Item Value Reference Range Interpretation Comments eGFR (test code = eGFR) 6 [facility]2022-06-28 11:17:00 Test Item Value Reference Range Interpretation Comments Magnesium Lvl (test code = Magnesium 1.9 1.8-2.4 Lvl) [facility]2022-06-28 11:17:00 Test Item Value Reference Range Interpretation Comments LDH (test code = LDH) 297 98-192 [facility]2022-06-28 11:17:00 Test Item Value Reference Range Interpretation Comments Procalcitonin Lvl (test 0.63 See_Comment [Au tomated message] code = Procalcitonin Lvl) Th e system which generated this result transmitted ref erence range: <=0.10. The reference range was not used to interpr et this result as normal/abnormal . [facility] LancasterPsdkhmqOVFUIGXESP0434-11-77 11:17:00 Test Item Value Reference Range Interpretation Comments D-Dimer (test code = D-Dimer) 5.33 [place] 646932-06-28 11:17:00 Test Item Value Reference Range Interpretation Comments Hep Bs Ag (test code Negative *NA*(11/25/21 = Hep Bs Ag) 6:17 AM) [facility] CenterGbgwdhiZKSDULVEXD2713-87-08 11:17:00 Test Item Value Reference Range Interpretation Comments C-REACTIVE PROTEIN (test code = 134.0 C-REACTIVE PROTEIN) [facility] CenterWbzlivgDENIXNIVPW8588-85-21 11:17:00 Test Item Value Reference Range Interpretation Comments Interleukin 6 (test code = Interleukin 25.99 6) [facility]2022-06-28 11:17:00 Test Item Value Reference Range Interpretation Comments Vitamin B12 Lvl (test code = Vitamin 1508 B12 Lvl) [facility]2022-06-28 11:17:00 Test Item Value Reference Range Interpretation Comments Folate Lvl (test code = Folate Lvl) 22.3 [facility]2022-06-28 11:17:00 Test Item Value Reference Range Interpretation Comments Ferritin Lvl (test code = Ferritin Lvl) 1423 22-275 [facility]2022-06-28 11:17:00 Test Item Value Reference Range Interpretation Comments Glucose Lvl (test code = Glucose Lvl) 205 70-99 [facility]2022-06-28 11:17:00 Test Item Value Reference Range Interpretation Comments BUN (test code = BUN) 60 7-22 [facility]2022-06-28 11:17:00 Test Item Value Reference Range Interpretation Comments Creatinine Lvl (test code = Creatinine 8.46 0.50-1.40 Lvl) [facility]2022-06-28 11:17:00 Test Item Value Reference Range Interpretation Comments Sodium Lvl (test code = Sodium Lvl) 131 135-145 [facility]2022-06-28 11:17:00 Test Item Value Reference Range Interpretation Comments Potassium Lvl (test code = Potassium 5.2 3.5-5.1 Lvl) [facility]2022-06-28 11:17:00 Test Item Value Reference Range Interpretation Comments Chloride Lvl (test code = Chloride Lvl) 93 95-109 [place] 378062-06-28 11:17:00 Test Item Value Reference Range Interpretation Comments CO2 (test code = CO2) 29 24-32 [place] 378062-06-28 11:17:00 Test Item Value Reference Range Interpretation Comments Calcium Lvl (test code = Calcium Lvl) 8.7 8.5-10.5 [place] 378062-06-28 11:17:00 Test Item Value Reference Range Interpretation Comments Total Protein (test code = Total 6.0 6.4-8.4 Protein) [place] 378062-06-28 11:17:00 Test Item Value Reference Range Interpretation Comments Albumin Lvl (test code = Albumin Lvl) 2.6 3.5-5.0 [place] 378062-06-28 11:17:00 Test Item Value Reference Range Interpretation Comments ALT (test code = ALT) 43 See_Comment [Auto mated message] The system which ge nerated this result transmit swathi reference range : <=65. The reference range was not used to interpr et this result as deny l/abnormal. [facility]2022-06-28 11:17:00 Test Item Value Reference Range Interpretation Comments AST (test code = AST) 35 See_Comment [Auto mated message] The system which ge nerated this result transmit swathi reference range : <=37. The reference range was not used to interpr et this result as deny l/abnormal. [facility]2022-06-28 11:17:00 Test Item Value Reference Range Interpretation Comments Alk Phos (test code = Alk Phos) 385 39-136 [place] 378062-06-28 11:17:00 Test Item Value Reference Range Interpretation Comments Bili Total (test code = Bili Total) 1.2 0.2-1.3 [place] 378062-06-28 11:17:00 Test Item Value Reference Range Interpretation Comments AGAP (test code = AGAP) 14.2 10.0-20.0 [place] 378062-06-28 11:17:00 Test Item Value Reference Range Interpretation Comments B/C Ratio (test code = B/C Ratio) 7 1 6-25 [place] 378062-06-28 11:17:00 Test Item Value Reference Range Interpretation Comments Globulin (test code = Globulin) 3.4 2.7-4.2 [facility]2022-06-28 11:17:00 Test Item Value Reference Range Interpretation Comments A/G Ratio (test code = A/G Ratio) 0.8 1 0.7-1.6 [facility]2022-06-28 11:17:00 Test Item Value Reference Range Interpretation Comments eGFR (test code = eGFR) 6 [facility]2022-06-28 11:17:00 Test Item Value Reference Range Interpretation Comments Magnesium Lvl (test code = Magnesium 1.9 1.8-2.4 Lvl) [facility]2022-06-28 11:17:00 Test Item Value Reference Range Interpretation Comments LDH (test code = LDH) 297 98-192 [facility]2022-06-28 11:17:00 Test Item Value Reference Range Interpretation Comments Procalcitonin Lvl (test 0.63 See_Comment [Au tomated message] code = Procalcitonin Lvl) e system which generated this result transmitted ref erence range: <=0.10. The reference range was not used to interpr et this result as normal/abnormal . [facility] LancasterEacrsocZLFIDRELQM6458-37-10 11:17:00 Test Item Value Reference Range Interpretation Comments D-Dimer (test code = D-Dimer) 5.33 [facility] CenterDbylkkeDEOQHEPGTJ5274-61-80 11:17:00 Test Item Value Reference Range Interpretation Comments Hep Bs Ag (test code Negative *NA*(11/25/21 = Hep Bs Ag) 6:17 AM) [facility] CenterLdtiwedHVYNCHMKSX1154-27-55 11:17:00 Test Item Value Reference Range Interpretation Comments C-REACTIVE PROTEIN (test code = 134.0 C-REACTIVE PROTEIN) [place] 646932-06-28 11:17:00 Test Item Value Reference Range Interpretation Comments Interleukin 6 (test code = Interleukin 25.99 6) [facility]2022-06-28 11:17:00 Test Item Value Reference Range Interpretation Comments Vitamin B12 Lvl (test code = Vitamin 1508 B12 Lvl) [facility]2022-06-28 11:17:00 Test Item Value Reference Range Interpretation Comments Folate Lvl (test code = Folate Lvl) 22.3 [facility]2022-06-28 11:17:00 Test Item Value Reference Range Interpretation Comments Ferritin Lvl (test code = Ferritin Lvl) 1423 22275 [facility]2022-06-28 11:17:00 Test Item Value Reference Range Interpretation Comments Glucose Lvl (test code = Glucose Lvl) 205 70-99 [place] 378062-06-28 11:17:00 Test Item Value Reference Range Interpretation Comments BUN (test code = BUN) 60 7-22 [facility]2022-06-28 11:17:00 Test Item Value Reference Range Interpretation Comments Creatinine Lvl (test code = Creatinine 8.46 0.50-1.40 Lvl) [facility]2022-06-28 11:17:00 Test Item Value Reference Range Interpretation Comments Sodium Lvl (test code = Sodium Lvl) 131 135-145 [facility]2022-06-28 11:17:00 Test Item Value Reference Range Interpretation Comments Potassium Lvl (test code = Potassium 5.2 3.5-5.1 Lvl) [facility]2022-06-28 11:17:00 Test Item Value Reference Range Interpretation Comments Chloride Lvl (test code = Chloride Lvl) 93 95-109 [facility]2022-06-28 11:17:00 Test Item Value Reference Range Interpretation Comments CO2 (test code = CO2) 29 24-32 [facility]2022-06-28 11:17:00 Test Item Value Reference Range Interpretation Comments Calcium Lvl (test code = Calcium Lvl) 8.7 8.5-10.5 [facility]2022-06-28 11:17:00 Test Item Value Reference Range Interpretation Comments Total Protein (test code = Total 6.0 6.4-8.4 Protein) [place] 378062-06-28 11:17:00 Test Item Value Reference Range Interpretation Comments Albumin Lvl (test code = Albumin Lvl) 2.6 3.5-5.0 [place] 378062-06-28 11:17:00 Test Item Value Reference Range Interpretation Comments ALT (test code = ALT) 43 See_Comment [Auto mated message] The system which ge nerated this result transmit swathi reference range : <=65. The reference range was not used to interpr et this result as deny l/abnormal. [place] 378062-06-28 11:17:00 Test Item Value Reference Range Interpretation Comments AST (test code = AST) 35 See_Comment [Auto mated message] The system which ge nerated this result transmit swathi reference range : <=37. The reference range was not used to interpr et this result as deny l/abnormal. [place] 378062-06-28 11:17:00 Test Item Value Reference Range Interpretation Comments Alk Phos (test code = Alk Phos) 385 39-136 [place] 378062-06-28 11:17:00 Test Item Value Reference Range Interpretation Comments Bili Total (test code = Bili Total) 1.2 0.2-1.3 [place] 378062-06-28 11:17:00 Test Item Value Reference Range Interpretation Comments AGAP (test code = AGAP) 14.2 10.0-20.0 [place] 378062-06-28 11:17:00 Test Item Value Reference Range Interpretation Comments B/C Ratio (test code = B/C Ratio) 7 1 6-25 [place] 378062-06-28 11:17:00 Test Item Value Reference Range Interpretation Comments Globulin (test code = Globulin) 3.4 2.7-4.2 [place] 378062-06-28 11:17:00 Test Item Value Reference Range Interpretation Comments A/G Ratio (test code = A/G Ratio) 0.8 1 0.7-1.6 [place] 378062-06-28 11:17:00 Test Item Value Reference Range Interpretation Comments eGFR (test code = eGFR) 6 [place] 378062-06-28 11:17:00 Test Item Value Reference Range Interpretation Comments Magnesium Lvl (test code = Magnesium 1.9 1.8-2.4 Lvl) [place] 378062-06-28 11:17:00 Test Item Value Reference Range Interpretation Comments LDH (test code = LDH) 297 98-192 [place] 378062-06-28 11:17:00 Test Item Value Reference Range Interpretation Comments Procalcitonin Lvl (test 0.63 See_Comment [Au tomated message] code = Procalcitonin Lvl) Th e system which generated this result transmitted ref erence range: <=0.10. The reference range was not used to interpr et this result as normal/abnormal . [facility]JupjmfrLSZASTGATR6604-49-93 11:17:00 Test Item Value Reference Range Interpretation Comments D-Dimer (test code = D-Dimer) 5.33 [facility] CenterRayuivrYOBBBKZYHO7976-58-36 11:17:00 Test Item Value Reference Range Interpretation Comments Hep Bs Ag (test code Negative *NA*(11/25/21 = Hep Bs Ag) 6:17 AM) [facility] CenterBkurctoRLIIPYQBVC3650-30-16 11:17:00 Test Item Value Reference Range Interpretation Comments C-REACTIVE PROTEIN (test code = 134.0 C-REACTIVE PROTEIN) [facility] CenterYujikrrYLJAXVDUSQ4129-60-81 11:17:00 Test Item Value Reference Range Interpretation Comments Interleukin 6 (test code = Interleukin 25.99 6) [facility] [id number] 05:52:00 Test Item Value Reference Range Interpretation Comments RBC product (test code Product available = RBC product) 4(11/25/21 12:52 AM) [facility] [id number] 05:52:00 Test Item Value Reference Range Interpretation Comments RBC product (test code Product available = RBC product) 4(11/25/21 12:52 AM) [facility] [id number] 05:52:00 Test Item Value Reference Range Interpretation Comments RBC product (test code Product available = RBC product) 4(11/25/21 12:52 AM) [facility] [id number] 05:52:00 Test Item Value Reference Range Interpretation Comments RBC product (test code Product available = RBC product) 4(11/25/21 12:52 AM) [facility] [id number] 05:52:00 Test Item Value Reference Range Interpretation Comments RBC product (test code Product available = RBC product) 4(11/25/21 12:52 AM) [facility] [id number] 05:52:00 Test Item Value Reference Range Interpretation Comments RBC product (test code Product available = RBC product) 4(11/25/21 12:52 AM) [facility] CenterQgcdypdTLFMMNKWMY7320-19-90 05:43:00 Test Item Value Reference Range Interpretation Comments Coronavirus (COVID-19) Detected MANUEL (test code = 8*ABN*(11/25/21 12:43 Coronavirus (COVID-19) AM) MANUEL) [facility] CenterDclnnuoLNSUWNHGJO8933-27-41 05:43:00 Test Item Value Reference Range Interpretation Comments Coronavirus (COVID-19) Detected MANUEL (test code = 8*ABN*(11/25/21 12:43 Coronavirus (COVID-19) AM) MANUEL) [facility] CenterDgfxkitSIFKJVGWYC7379-88-96 05:43:00 Test Item Value Reference Range Interpretation Comments Coronavirus (COVID-19) Detected MANUEL (test code = 8*ABN*(11/25/21 12:43 Coronavirus (COVID-19) AM) MANUEL) [facility] CenterNabdmopRENPUMFIDE9365-82-73 05:43:00 Test Item Value Reference Range Interpretation Comments Coronavirus (COVID-19) Detected MANUEL (test code = 8*ABN*(11/25/21 12:43 Coronavirus (COVID-19) AM) MANUEL) [facility] CenterCxoknrwUEPAJXRNJA1149-73-57 05:43:00 Test Item Value Reference Range Interpretation Comments Coronavirus (COVID-19) Detected MANUEL (test code = 8*ABN*(11/25/21 12:43 Coronavirus (COVID-19) AM) MANUEL) [facility] CenterPvuwmfoGYLVMCNYED7606-48-03 05:43:00 Test Item Value Reference Range Interpretation Comments Coronavirus (COVID-19) Detected MANUEL (test code = 8*ABN*(11/25/21 12:43 Coronavirus (COVID-19) AM) MANUEL) [facility]2022-06-28 05:23:00 Test Item Value Reference Range Interpretation Comments Occult Bld Stl (test Negative (11/25/21 12:23 code = Occult Bld Stl) AM) [facility]2022-06-28 05:23:00 Test Item Value Reference Range Interpretation Comments Occult Bld Stl (test Negative (11/25/21 12:23 code = Occult Bld Stl) AM) [facility]2022-06-28 05:23:00 Test Item Value Reference Range Interpretation Comments Occult Bld Stl (test Negative (11/25/21 12:23 code = Occult Bld Stl) AM) [facility] [facility] AND [id number] 05:23:00 Test Item Value Reference Range Interpretation Comments Occult Bld Stl (test Negative (11/25/21 12:23 code = Occult Bld Stl) AM) [facility] AND [id number] 05:23:00 Test Item Value Reference Range Interpretation Comments Occult Bld Stl (test Negative (11/25/21 12:23 code = Occult Bld Stl) AM) [facility] AND [id number] 05:23:00 Test Item Value Reference Range Interpretation Comments Occult Bld Stl (test Negative (11/25/21 12:23 code = Occult Bld Stl) AM) [facility] [employer] [id number] 04:12:00 Test Item Value Reference Range Interpretation Comments ABO/Rh (test code = ABO/Rh) AB POS [facility] [employer] [id number] 04:12:00 Test Item Value Reference Range Interpretation Comments Antibody Scrn (test Negative (11/24/21 code = Antibody Scrn) 11:12 PM) [facility] [employer] [id number] 04:12:00 Test Item Value Reference Range Interpretation Comments Total CK (test code = Total CK) 86 12-191 [facility] [employer] [id number] 04:12:00 Test Item Value Reference Range Interpretation Comments HS Troponin I (test code = HS Troponin 316 I) [facility]2022-06-28 04:12:00 Test Item Value Reference Range Interpretation Comments Glucose Lvl (test code = Glucose Lvl) 261 70-99 [facility] [employer]2022-06-28 04:12:00 Test Item Value Reference Range Interpretation Comments BUN (test code = BUN) 60 7-22 [facility]2022-06-28 04:12:00 Test Item Value Reference Range Interpretation Comments Creatinine Lvl (test code = Creatinine 8.49 0.50-1.40 Lvl) [facility] [employer]2022-06-28 04:12:00 Test Item Value Reference Range Interpretation Comments Sodium Lvl (test code = Sodium Lvl) 133 135-145 [facility]2022-06-28 04:12:00 Test Item Value Reference Range Interpretation Comments Potassium Lvl (test code = Potassium 4.9 3.5-5.1 Lvl) [place] 378062-06-28 04:12:00 Test Item Value Reference Range Interpretation Comments Chloride Lvl (test code = Chloride Lvl) 93 95-109 [place] 378062-06-28 04:12:00 Test Item Value Reference Range Interpretation Comments CO2 (test code = CO2) 31 24-32 [place] 378062-06-28 04:12:00 Test Item Value Reference Range Interpretation Comments Calcium Lvl (test code = Calcium Lvl) 9.1 8.5-10.5 [place] 378062-06-28 04:12:00 Test Item Value Reference Range Interpretation Comments Total Protein (test code = Total 6.8 6.4-8.4 Protein) [place] 378062-06-28 04:12:00 Test Item Value Reference Range Interpretation Comments Albumin Lvl (test code = Albumin Lvl) 2.5 3.5-5.0 [facility] [id number] 04:12:00 Test Item Value Reference Range Interpretation Comments ALT (test code = ALT) 51 See_Comment [Auto mated message] The system which ge nerated this result transmit swathi reference range : <=65. The reference range was not used to interpr et this result as deny l/abnormal. [place] 378062-06-28 04:12:00 Test Item Value Reference Range Interpretation Comments AST (test code = AST) 36 See_Comment [Auto mated message] The system which ge nerated this result transmit swathi reference range : <=37. The reference range was not used to interpr et this result as deny l/abnormal. [place] 378062-06-28 04:12:00 Test Item Value Reference Range Interpretation Comments Alk Phos (test code = Alk Phos) 383 39-136 [place] 378062-06-28 04:12:00 Test Item Value Reference Range Interpretation Comments Bili Total (test code = Bili Total) 1.1 0.2-1.3 [place] 378062-06-28 04:12:00 Test Item Value Reference Range Interpretation Comments AGAP (test code = AGAP) 13.9 10.0-20.0 [place] 378062-06-28 04:12:00 Test Item Value Reference Range Interpretation Comments B/C Ratio (test code = B/C Ratio) 7 1 6-25 [place] 378062-06-28 04:12:00 Test Item Value Reference Range Interpretation Comments Globulin (test code = Globulin) 4.3 2.7-4.2 [place] 378062-06-28 04:12:00 Test Item Value Reference Range Interpretation Comments A/G Ratio (test code = A/G Ratio) 0.6 1 0.7-1.6 [facility]2022-06-28 04:12:00 Test Item Value Reference Range Interpretation Comments eGFR (test code = eGFR) 5 [facility]2022-06-28 04:12:00 Test Item Value Reference Range Interpretation Comments Procalcitonin Lvl (test 0.69 See_Comment [Au tomated message] code = Procalcitonin Lvl) e system which generated this result transmitted ref erence range: <=0.10. The reference range was not used to interpr et this result as normal/abnormal . [facility] CenterAdtvnafTPQDYEZTPR9775-59-65 04:12:00 Test Item Value Reference Range Interpretation Comments WBC (test code = WBC) 4.1 3.7-10.4 [facility]QxdybkiRXKMZJJQLX6406-87-21 04:12:00 Test Item Value Reference Range Interpretation Comments RBC (test code = RBC) 1.78 4.70-6.10 [facility] LancasterFxfaewxWIUEQJLNCC1964-30-55 04:12:00 Test Item Value Reference Range Interpretation Comments Hgb (test code = Hgb) 6.5 14.0-18.0 [place] 247202-06-28 04:12:00 Test Item Value Reference Range Interpretation Comments Hct (test code = Hct) 19.5 42.0-54.0 [place] 247202-06-28 04:12:00 Test Item Value Reference Range Interpretation Comments MCV (test code = MCV) 110.0 80.0-94.0 [facility] LancasterKnqkyvlSGQCONWDFJ8811-03-58 04:12:00 Test Item Value Reference Range Interpretation Comments MCH (test code = MCH) 36.5 pg 27.0-31.0 [place] [address]-06-28 04:12:00 Test Item Value Reference Range Interpretation Comments MCHC (test code = MCHC) 33.2 32.0-36.0 [facility] LancasterYldnovbNSCHBQBBTI0945-08-18 04:12:00 Test Item Value Reference Range Interpretation Comments RDW (test code = RDW) 19.0 11.5-14.5 [facility] LancasterAsqaxajVFHTZGAWLS4893-18-12 04:12:00 Test Item Value Reference Range Interpretation Comments Platelet (test code = Platelet) 180 133-450 [facility] LancasterLccnjllZTKSUQJTBH0849-76-57 04:12:00 Test Item Value Reference Range Interpretation Comments MPV (test code = MPV) 8.3 7.4-10.4 [facility] LancasterTqhjzgoPGCFWUPKCS2174-47-95 04:12:00 Test Item Value Reference Range Interpretation Comments PTT (test code = PTT) 45.4 s 22.9-35.8 [facility] LancasterGuiutflRGURIJYQVP3147-84-97 04:12:00 Test Item Value Reference Range Interpretation Comments PT (test code = PT) 19.1 s 12.0-14.7 [facility] LancasterQmepvmeQYENZULXTF4868-08-90 04:12:00 Test Item Value Reference Range Interpretation Comments INR (test code = INR) 1.62 1 0.85-1.17 [facility] LancasterLogkzvgQZJQCJUQUH9305-69-65 04:12:00 Test Item Value Reference Range Interpretation Comments RBC Morph (test code = See Note (11/24/21 RBC Morph) 11:12 PM) [facility] LancasterApujislOFGKOOKWKB7329-81-55 04:12:00 Test Item Value Reference Range Interpretation Comments Plt Morph (test code = Normal (11/24/21 11:12 Plt Morph) PM) [facility] LancasterTtuqeyfIMGDPNBNZI1179-01-03 04:12:00 Test Item Value Reference Range Interpretation Comments Segs (test code = Segs) 72.2 45.0-75.0 [facility] LancasterVfjdkilNYPOOWOXIP3366-41-43 04:12:00 Test Item Value Reference Range Interpretation Comments Lymphocytes (test code = Lymphocytes) 16.2 20.0-40.0 [place] 247202-06-28 04:12:00 Test Item Value Reference Range Interpretation Comments Monocytes (test code = Monocytes) 8.0 2.0-12.0 [place] 247202-06-28 04:12:00 Test Item Value Reference Range Interpretation Comments Eosinophils (test code = 2.7 See_Comment [A utomated message] The Eosinophils) system which ge nerated this result tra nsmitted reference range : <=4.0. The reference r samantha was not used to int erpret this result as normal/abnormal . [facility] LancasterKhpdziiDYJODEOTRZ6172-29-51 04:12:00 Test Item Value Reference Range Interpretation Comments Basophils (test code = 0.9 See_Comment [Aut omated message] The Basophils) system which ge nerated this result tra nsmitted reference range : <=1.0. The reference r samantha was not used to int erpret this result as normal/abnormal . [facility] LancasterMeohwcnYAXSMACQUW5030-52-26 04:12:00 Test Item Value Reference Range Interpretation Comments Neutrophils # (test code = Neutrophils 2.9 1.5-8.1 #) [facility] LancasterFzbshapEZNZWBYEHA4609-54-25 04:12:00 Test Item Value Reference Range Interpretation Comments Lymphocytes # (test code = Lymphocytes 0.7 1.0-5.5 #) [facility] LancasterZpboxfaIWTVNDFGIU8055-61-14 04:12:00 Test Item Value Reference Range Interpretation Comments Monocytes # (test code 0.3 See_Comment [Aut omated message] The = Monocytes #) system which generated this result tra nsmitted reference range : <=0.8. The reference r samantha was not used to int erpret this result as normal/abnormal . [facility] LancasterGptnolyFGRCOFNPAX5972-16-23 04:12:00 Test Item Value Reference Range Interpretation Comments Eosinophils # (test code 0.1 See_Comment [A utomated message] The = Eosinophils #) system whic h generated this result tra nsmitted reference range : <=0.5. The reference r samantha was not used to int erpret this result as normal/abnormal . [facility] LancasterDhfhicvWEYBZULUCX3737-82-30 04:12:00 Test Item Value Reference Range Interpretation Comments Anisocyte (test code = 1+ *ABN*(11/24/21 Anisocyte) 11:12 PM) [facility] LancasterMufmeayPTQDDXNVML0786-91-32 04:12:00 Test Item Value Reference Range Interpretation Comments Macrocyte (test code = 1+ *ABN*(11/24/21 Macrocyte) 11:12 PM) [place] 247202-06-28 04:12:00 Test Item Value Reference Range Interpretation Comments Microcyte (test code = 1+ *ABN*(11/24/21 Microcyte) 11:12 PM) [facility] DNCVUZA4221-27-17 04:12:00 Test Item Value Reference Range Interpretation Comments ABO/Rh (test code = ABO/Rh) AB POS [facility]villeT[facility] ZLCWWXZ6913-80-65 04:12:00 Test Item Value Reference Range Interpretation Comments Antibody Scrn (test Negative (11/24/21 code = Antibody Scrn) 11:12 PM) [facility]villeCMOS[facility] [place] UGPQIPI8474-90-75 04:12:00 Test Item Value Reference Range Interpretation Comments Total CK (test code = Total CK) 86 12-191 [facility]CM[facility] [place] CJEPCDO4666-05-82 04:12:00 Test Item Value Reference Range Interpretation Comments HS Troponin I (test code = HS Troponin 316 I) [facility] Tuizzi2022-06-28 04:12:00 Test Item Value Reference Range Interpretation Comments Glucose Lvl (test code = Glucose Lvl) 261 70-99 [facility] IROCKE HSXDS4924-28-11 04:12:00 Test Item Value Reference Range Interpretation Comments BUN (test code = BUN) 60 7-22 [facility] Tuizzi2022-06-28 04:12:00 Test Item Value Reference Range Interpretation Comments Creatinine Lvl (test code = Creatinine 8.49 0.50-1.40 Lvl) [facility] Tuizzi2022-06-28 04:12:00 Test Item Value Reference Range Interpretation Comments Sodium Lvl (test code = Sodium Lvl) 133 135-145 [facility] IR[place]KE VPFTB2557-25-28 04:12:00 Test Item Value Reference Range Interpretation Comments Potassium Lvl (test code = Potassium 4.9 3.5-5.1 Lvl) [facility] Tuizzi2022-06-28 04:12:00 Test Item Value Reference Range Interpretation Comments Chloride Lvl (test code = Chloride Lvl) 93 95-109 [facility] IR[place] [id number] 04:12:00 Test Item Value Reference Range Interpretation Comments CO2 (test code = CO2) 31 24-32 [facility] [place] [id number] 04:12:00 Test Item Value Reference Range Interpretation Comments Calcium Lvl (test code = Calcium Lvl) 9.1 8.5-10.5 [place] 378062-06-28 04:12:00 Test Item Value Reference Range Interpretation Comments Total Protein (test code = Total 6.8 6.4-8.4 Protein) [place] 378062-06-28 04:12:00 Test Item Value Reference Range Interpretation Comments Albumin Lvl (test code = Albumin Lvl) 2.5 3.5-5.0 [place] 378062-06-28 04:12:00 Test Item Value Reference Range Interpretation Comments ALT (test code = ALT) 51 See_Comment [Auto mated message] The system which ge nerated this result transmit swathi reference range : <=65. The reference range was not used to interpr et this result as deny l/abnormal. [place] 378062-06-28 04:12:00 Test Item Value Reference Range Interpretation Comments AST (test code = AST) 36 See_Comment [Auto mated message] The system which ge nerated this result transmit swathi reference range : <=37. The reference range was not used to interpr et this result as deny l/abnormal. [place] 378062-06-28 04:12:00 Test Item Value Reference Range Interpretation Comments Alk Phos (test code = Alk Phos) 383 39-136 [place] 378062-06-28 04:12:00 Test Item Value Reference Range Interpretation Comments Bili Total (test code = Bili Total) 1.1 0.2-1.3 [place] 378062-06-28 04:12:00 Test Item Value Reference Range Interpretation Comments AGAP (test code = AGAP) 13.9 10.0-20.0 [place] 378062-06-28 04:12:00 Test Item Value Reference Range Interpretation Comments B/C Ratio (test code = B/C Ratio) 7 1 6-25 [place] 378062-06-28 04:12:00 Test Item Value Reference Range Interpretation Comments Globulin (test code = Globulin) 4.3 2.7-4.2 [place] 378062-06-28 04:12:00 Test Item Value Reference Range Interpretation Comments A/G Ratio (test code = A/G Ratio) 0.6 1 0.7-1.6 [facility] CenterSpeech Kingdom [id number] 04:12:00 Test Item Value Reference Range Interpretation Comments eGFR (test code = eGFR) 5 [facility] CenterCHEM ENCLA5727-92-78 04:12:00 Test Item Value Reference Range Interpretation Comments Procalcitonin Lvl (test 0.69 See_Comment [Au tomated message] code = Procalcitonin Lvl) Th e system which generated this result transmitted ref erence range: <=0.10. The reference range was not used to interpr et this result as normal/abnormal . [facility] LancasterQomfusbVXGEPEILFV6258-82-56 04:12:00 Test Item Value Reference Range Interpretation Comments WBC (test code = WBC) 4.1 3.7-10.4 [facility] LancasterYxmhhuwUEDVHIBFNE0389-34-81 04:12:00 Test Item Value Reference Range Interpretation Comments RBC (test code = RBC) 1.78 4.70-6.10 [facility] LancasterTzjzojlUTQJDHPWSP2437-11-88 04:12:00 Test Item Value Reference Range Interpretation Comments Hgb (test code = Hgb) 6.5 14.0-18.0 [facility] LancasterIewwqzhMHISRJUWWF7708-02-70 04:12:00 Test Item Value Reference Range Interpretation Comments Hct (test code = Hct) 19.5 42.0-54.0 [facility] LancasterRyazgzdZKXHHVXQEP9168-51-65 04:12:00 Test Item Value Reference Range Interpretation Comments MCV (test code = MCV) 110.0 80.0-94.0 [facility] LancasterRzlyvatFDFLDOAKEN3855-47-78 04:12:00 Test Item Value Reference Range Interpretation Comments MCH (test code = MCH) 36.5 pg 27.0-31.0 [facility] LancasterBdoltxjEGIGLGORBE0053-31-11 04:12:00 Test Item Value Reference Range Interpretation Comments MCHC (test code = MCHC) 33.2 32.0-36.0 [facility] LancasterLexffaiXIWNNUHXUP6542-14-89 04:12:00 Test Item Value Reference Range Interpretation Comments RDW (test code = RDW) 19.0 11.5-14.5 [facility] LancasterOizzddhVHZKBKLSNA4760-20-79 04:12:00 Test Item Value Reference Range Interpretation Comments Platelet (test code = Platelet) 180 133-450 [facility] LancasterInvzawsQBIHMQTPYC5897-73-10 04:12:00 Test Item Value Reference Range Interpretation Comments MPV (test code = MPV) 8.3 7.4-10.4 [facility] LancasterEfthvlgBPLVLOZAJO9198-45-42 04:12:00 Test Item Value Reference Range Interpretation Comments PTT (test code = PTT) 45.4 s 22.9-35.8 [facility] LancasterOntnbqkIDPQMUXSON8886-30-19 04:12:00 Test Item Value Reference Range Interpretation Comments PT (test code = PT) 19.1 s 12.0-14.7 [place] 247202-06-28 04:12:00 Test Item Value Reference Range Interpretation Comments INR (test code = INR) 1.62 1 0.85-1.17 [place] 247202-06-28 04:12:00 Test Item Value Reference Range Interpretation Comments RBC Morph (test code = See Note (11/24/21 RBC Morph) 11:12 PM) [facility] LancasterNremrmnUYYDFEYHUW1353-38-49 04:12:00 Test Item Value Reference Range Interpretation Comments Plt Morph (test code = Normal (11/24/21 11:12 Plt Morph) PM) [place] 247202-06-28 04:12:00 Test Item Value Reference Range Interpretation Comments Segs (test code = Segs) 72.2 45.0-75.0 [facility] LancasterLnbosxuEMVPGUFPLH0803-85-64 04:12:00 Test Item Value Reference Range Interpretation Comments Lymphocytes (test code = Lymphocytes) 16.2 20.0-40.0 [facility] LancasterRodpwatXRKFYDXHVD6895-55-03 04:12:00 Test Item Value Reference Range Interpretation Comments Monocytes (test code = Monocytes) 8.0 2.0-12.0 [place] 247202-06-28 04:12:00 Test Item Value Reference Range Interpretation Comments Eosinophils (test code = 2.7 See_Comment [A utomated message] The Eosinophils) system which ge nerated this result tra nsmitted reference range : <=4.0. The reference r samantha was not used to int erpret this result as normal/abnormal . [place] 247202-06-28 04:12:00 Test Item Value Reference Range Interpretation Comments Basophils (test code = 0.9 See_Comment [Aut omated message] The Basophils) system which ge nerated this result tra nsmitted reference range : <=1.0. The reference r samantha was not used to int erpret this result as normal/abnormal . [facility] LancasterXikdivaMBQBMXCQPC8636-29-73 04:12:00 Test Item Value Reference Range Interpretation Comments Neutrophils # (test code = Neutrophils 2.9 1.5-8.1 #) [facility] LancasterWsipenpPCAOAHKDHI1819-77-80 04:12:00 Test Item Value Reference Range Interpretation Comments Lymphocytes # (test code = Lymphocytes 0.7 1.0-5.5 #) [facility] LancasterXpzquljWOKGYDJKBV0848-43-44 04:12:00 Test Item Value Reference Range Interpretation Comments Monocytes # (test code 0.3 See_Comment [Aut omated message] The = Monocytes #) system which generated this result tra nsmitted reference range : <=0.8. The reference r samantha was not used to int erpret this result as normal/abnormal . [facility] LancasterWhvbnqdJWXPVGYREB9643-79-00 04:12:00 Test Item Value Reference Range Interpretation Comments Eosinophils # (test code 0.1 See_Comment [A utomated message] The = Eosinophils #) system whic h generated this result tra nsmitted reference range : <=0.5. The reference r samantha was not used to int erpret this result as normal/abnormal . [facility] LancasterQcilcxnPUWZJOAOOG4367-49-90 04:12:00 Test Item Value Reference Range Interpretation Comments Anisocyte (test code = 1+ *ABN*(11/24/21 Anisocyte) 11:12 PM) [facility] LancasterLsgnkaeFXWFSRHHSV7908-03-63 04:12:00 Test Item Value Reference Range Interpretation Comments Macrocyte (test code = 1+ *ABN*(11/24/21 Macrocyte) 11:12 PM) [facility] LancasterBljxqogRXHBBUDLZB3681-45-41 04:12:00 Test Item Value Reference Range Interpretation Comments Microcyte (test code = 1+ *ABN*(11/24/21 Microcyte) 11:12 PM) [facility] VNQFPOD2821-89-43 04:12:00 Test Item Value Reference Range Interpretation Comments ABO/Rh (test code = ABO/Rh) AB POS [facility] ZWQFBJW7511-64-24 04:12:00 Test Item Value Reference Range Interpretation Comments Antibody Scrn (test Negative (11/24/21 code = Antibody Scrn) 11:12 PM) [facility] FDYZTLJ9014-03-38 04:12:00 Test Item Value Reference Range Interpretation Comments Total CK (test code = Total CK) 86 12-191 [facility] WGERNQZ0482-85-52 04:12:00 Test Item Value Reference Range Interpretation Comments HS Troponin I (test code = HS Troponin 316 I) [facility]2022-06-28 04:12:00 Test Item Value Reference Range Interpretation Comments Glucose Lvl (test code = Glucose Lvl) 261 70-99 [facility]2022-06-28 04:12:00 Test Item Value Reference Range Interpretation Comments BUN (test code = BUN) 60 7-22 [facility]2022-06-28 04:12:00 Test Item Value Reference Range Interpretation Comments Creatinine Lvl (test code = Creatinine 8.49 0.50-1.40 Lvl) [facility]2022-06-28 04:12:00 Test Item Value Reference Range Interpretation Comments Sodium Lvl (test code = Sodium Lvl) 133 135-145 [facility]2022-06-28 04:12:00 Test Item Value Reference Range Interpretation Comments Potassium Lvl (test code = Potassium 4.9 3.5-5.1 Lvl) [facility]2022-06-28 04:12:00 Test Item Value Reference Range Interpretation Comments Chloride Lvl (test code = Chloride Lvl) 93 95-109 [facility]2022-06-28 04:12:00 Test Item Value Reference Range Interpretation Comments CO2 (test code = CO2) 31 24-32 [facility]2022-06-28 04:12:00 Test Item Value Reference Range Interpretation Comments Calcium Lvl (test code = Calcium Lvl) 9.1 8.5-10.5 [facility]2022-06-28 04:12:00 Test Item Value Reference Range Interpretation Comments Total Protein (test code = Total 6.8 6.4-8.4 Protein) [facility]2022-06-28 04:12:00 Test Item Value Reference Range Interpretation Comments Albumin Lvl (test code = Albumin Lvl) 2.5 3.5-5.0 [facility]2022-06-28 04:12:00 Test Item Value Reference Range Interpretation Comments ALT (test code = ALT) 51 See_Comment [Auto mated message] The system which ge nerated this result transmit swathi reference range : <=65. The reference range was not used to interpr et this result as deny l/abnormal. [facility] [place] [id number] 04:12:00 Test Item Value Reference Range Interpretation Comments AST (test code = AST) 36 See_Comment [Auto mated message] The system which ge nerated this result transmit swathi reference range : <=37. The reference range was not used to interpr et this result as deny l/abnormal. [facility] [place] [id number] 04:12:00 Test Item Value Reference Range Interpretation Comments Alk Phos (test code = Alk Phos) 383 39-136 [facility] [place] [id number] 04:12:00 Test Item Value Reference Range Interpretation Comments Bili Total (test code = Bili Total) 1.1 0.2-1.3 [facility] [place] VJXRJ5208-78-63 04:12:00 Test Item Value Reference Range Interpretation Comments AGAP (test code = AGAP) 13.9 10.0-20.0 [facility] [place] [id number] 04:12:00 Test Item Value Reference Range Interpretation Comments B/C Ratio (test code = B/C Ratio) 7 1 6-25 [facility] [place] [id number] 04:12:00 Test Item Value Reference Range Interpretation Comments Globulin (test code = Globulin) 4.3 2.7-4.2 [facility] [place] [id number] 04:12:00 Test Item Value Reference Range Interpretation Comments A/G Ratio (test code = A/G Ratio) 0.6 1 0.7-1.6 [facility] [place] [id number] 04:12:00 Test Item Value Reference Range Interpretation Comments eGFR (test code = eGFR) 5 [facility] [place] KQSRX9645-91-71 04:12:00 Test Item Value Reference Range Interpretation Comments Procalcitonin Lvl (test 0.69 See_Comment [Au tomated message] code = Procalcitonin Lvl) Th e system which generated this result transmitted ref erence range: <=0.10. The reference range was not used to interpr et this result as normal/abnormal . [facility] LancasterUtkicpxHHKRUNRAWC9849-97-10 04:12:00 Test Item Value Reference Range Interpretation Comments WBC (test code = WBC) 4.1 3.7-10.4 [facility] LancasterNqigofxKULBNIOIUE9508-06-13 04:12:00 Test Item Value Reference Range Interpretation Comments RBC (test code = RBC) 1.78 4.70-6.10 [facility] LancasterGbgghucOENNUEBJKQ3047-97-22 04:12:00 Test Item Value Reference Range Interpretation Comments Hgb (test code = Hgb) 6.5 14.0-18.0 [facility] LancasterEvtbctvHGGOJEYEVK1627-37-54 04:12:00 Test Item Value Reference Range Interpretation Comments Hct (test code = Hct) 19.5 42.0-54.0 [facility] LancasterDndkbtaFUIKFGDKRV0555-74-68 04:12:00 Test Item Value Reference Range Interpretation Comments MCV (test code = MCV) 110.0 80.0-94.0 [facility] LancasterHjhvsytMVWMOOYJQR1866-24-27 04:12:00 Test Item Value Reference Range Interpretation Comments MCH (test code = MCH) 36.5 pg 27.0-31.0 [facility] LancasterKerpdqhBKYZDVANCR5086-00-17 04:12:00 Test Item Value Reference Range Interpretation Comments MCHC (test code = MCHC) 33.2 32.0-36.0 [facility] LancasterXxaljyoDMSWSCPHPS0366-44-43 04:12:00 Test Item Value Reference Range Interpretation Comments RDW (test code = RDW) 19.0 11.5-14.5 [facility] LancasterObnevvuCIFBGSNMFJ1365-55-20 04:12:00 Test Item Value Reference Range Interpretation Comments Platelet (test code = Platelet) 180 133-450 [facility] LancasterSgqtaarCQNZKXIOHZ0538-26-64 04:12:00 Test Item Value Reference Range Interpretation Comments MPV (test code = MPV) 8.3 7.4-10.4 [facility] LancasterBwzmpkuABIVHKOYRH0701-45-45 04:12:00 Test Item Value Reference Range Interpretation Comments PTT (test code = PTT) 45.4 s 22.9-35.8 [facility] LancasterViqyjzuGKYACXBSII3790-16-98 04:12:00 Test Item Value Reference Range Interpretation Comments PT (test code = PT) 19.1 s 12.0-14.7 [facility] LancasterEhmclvhAOVXEGJZBP9666-46-64 04:12:00 Test Item Value Reference Range Interpretation Comments INR (test code = INR) 1.62 1 0.85-1.17 [facility] LancasterVyevxtbMHUONMDSJB2127-83-55 04:12:00 Test Item Value Reference Range Interpretation Comments RBC Morph (test code = See Note (11/24/21 RBC Morph) 11:12 PM) [facility] LancasterKqjkiiyZUZVOAGDIL9755-66-73 04:12:00 Test Item Value Reference Range Interpretation Comments Plt Morph (test code = Normal (11/24/21 11:12 Plt Morph) PM) [place] 247202-06-28 04:12:00 Test Item Value Reference Range Interpretation Comments Segs (test code = Segs) 72.2 45.0-75.0 [place] 247202-06-28 04:12:00 Test Item Value Reference Range Interpretation Comments Lymphocytes (test code = Lymphocytes) 16.2 20.0-40.0 [place] 247202-06-28 04:12:00 Test Item Value Reference Range Interpretation Comments Monocytes (test code = Monocytes) 8.0 2.0-12.0 [facility] LancasterEfaagteBNPSKLOAMD0028-83-78 04:12:00 Test Item Value Reference Range Interpretation Comments Eosinophils (test code = 2.7 See_Comment [A utomated message] The Eosinophils) system which ge nerated this result tra nsmitted reference range : <=4.0. The reference r samantha was not used to int erpret this result as normal/abnormal . [facility] LancasterAatjivjILLAJZTAXI7994-99-38 04:12:00 Test Item Value Reference Range Interpretation Comments Basophils (test code = 0.9 See_Comment [Aut omated message] The Basophils) system which ge nerated this result tra nsmitted reference range : <=1.0. The reference r samantha was not used to int erpret this result as normal/abnormal . [facility] LancasterGandssoFDZCBFGEUD5124-86-68 04:12:00 Test Item Value Reference Range Interpretation Comments Neutrophils # (test code = Neutrophils 2.9 1.5-8.1 #) [facility] LancasterVrzvveePTVTGMQBMS3257-66-88 04:12:00 Test Item Value Reference Range Interpretation Comments Lymphocytes # (test code = Lymphocytes 0.7 1.0-5.5 #) [place] 247202-06-28 04:12:00 Test Item Value Reference Range Interpretation Comments Monocytes # (test code 0.3 See_Comment [Aut omated message] The = Monocytes #) system which generated this result tra nsmitted reference range : <=0.8. The reference r samantha was not used to int erpret this result as normal/abnormal . [facility] CenterYjckpdkDTOQQUDFCN7789-40-16 04:12:00 Test Item Value Reference Range Interpretation Comments Eosinophils # (test code 0.1 See_Comment [A utomated message] The = Eosinophils #) system whic h generated this result tra nsmitted reference range : <=0.5. The reference r samantha was not used to int erpret this result as normal/abnormal . [facility] CenterOlohaeiZUYDEJNOAC6492-27-70 04:12:00 Test Item Value Reference Range Interpretation Comments Anisocyte (test code = 1+ *ABN*(11/24/21 Anisocyte) 11:12 PM) [facility] CenterUkgscadJJAWSKKNXI4663-09-55 04:12:00 Test Item Value Reference Range Interpretation Comments Macrocyte (test code = 1+ *ABN*(11/24/21 Macrocyte) 11:12 PM) [facility]NyjkkkjJGEIVLPOOA4580-16-97 04:12:00 Test Item Value Reference Range Interpretation Comments Microcyte (test code = 1+ *ABN*(11/24/21 Microcyte) 11:12 PM) [facility]villeTink ISJRKVG4973-89-00 04:12:00 Test Item Value Reference Range Interpretation Comments ABO/Rh (test code = ABO/Rh) AB POS [facility] [employer] [id number] 04:12:00 Test Item Value Reference Range Interpretation Comments Antibody Scrn (test Negative (11/24/21 code = Antibody Scrn) 11:12 PM) [facility]Mc[facility] [id number] 04:12:00 Test Item Value Reference Range Interpretation Comments Total CK (test code = Total CK) 86 12-191 [facility] [id number] 04:12:00 Test Item Value Reference Range Interpretation Comments HS Troponin I (test code = HS Troponin 316 I) [facility] [employer]2022-06-28 04:12:00 Test Item Value Reference Range Interpretation Comments Glucose Lvl (test code = Glucose Lvl) 261 70-99 [place] 378062-06-28 04:12:00 Test Item Value Reference Range Interpretation Comments BUN (test code = BUN) 60 7-22 [place] 378062-06-28 04:12:00 Test Item Value Reference Range Interpretation Comments Creatinine Lvl (test code = Creatinine 8.49 0.50-1.40 Lvl) [place] 378062-06-28 04:12:00 Test Item Value Reference Range Interpretation Comments Sodium Lvl (test code = Sodium Lvl) 133 135-145 [place] 378062-06-28 04:12:00 Test Item Value Reference Range Interpretation Comments Potassium Lvl (test code = Potassium 4.9 3.5-5.1 Lvl) [place] 378062-06-28 04:12:00 Test Item Value Reference Range Interpretation Comments Chloride Lvl (test code = Chloride Lvl) 93 95-109 [place] 378062-06-28 04:12:00 Test Item Value Reference Range Interpretation Comments CO2 (test code = CO2) 31 24-32 [place] 378062-06-28 04:12:00 Test Item Value Reference Range Interpretation Comments Calcium Lvl (test code = Calcium Lvl) 9.1 8.5-10.5 [place] 378062-06-28 04:12:00 Test Item Value Reference Range Interpretation Comments Total Protein (test code = Total 6.8 6.4-8.4 Protein) [place] 378062-06-28 04:12:00 Test Item Value Reference Range Interpretation Comments Albumin Lvl (test code = Albumin Lvl) 2.5 3.5-5.0 [place] 378062-06-28 04:12:00 Test Item Value Reference Range Interpretation Comments ALT (test code = ALT) 51 See_Comment [Auto mated message] The system which ge nerated this result transmit swathi reference range : <=65. The reference range was not used to interpr et this result as deny l/abnormal. [place] 378062-06-28 04:12:00 Test Item Value Reference Range Interpretation Comments AST (test code = AST) 36 See_Comment [Auto mated message] The system which ge nerated this result transmit swathi reference range : <=37. The reference range was not used to interpr et this result as deny l/abnormal. [facility]2022-06-28 04:12:00 Test Item Value Reference Range Interpretation Comments Alk Phos (test code = Alk Phos) 383 39-136 [place] 378062-06-28 04:12:00 Test Item Value Reference Range Interpretation Comments Bili Total (test code = Bili Total) 1.1 0.2-1.3 [place] 378062-06-28 04:12:00 Test Item Value Reference Range Interpretation Comments AGAP (test code = AGAP) 13.9 10.0-20.0 [place] 378062-06-28 04:12:00 Test Item Value Reference Range Interpretation Comments B/C Ratio (test code = B/C Ratio) 7 1 6-25 [place] 378062-06-28 04:12:00 Test Item Value Reference Range Interpretation Comments Globulin (test code = Globulin) 4.3 2.7-4.2 [place] 378062-06-28 04:12:00 Test Item Value Reference Range Interpretation Comments A/G Ratio (test code = A/G Ratio) 0.6 1 0.7-1.6 [place] 378062-06-28 04:12:00 Test Item Value Reference Range Interpretation Comments eGFR (test code = eGFR) 5 [place] 378062-06-28 04:12:00 Test Item Value Reference Range Interpretation Comments Procalcitonin Lvl (test 0.69 See_Comment [Au tomated message] code = Procalcitonin Lvl) e system which generated this result transmitted ref erence range: <=0.10. The reference range was not used to interpr et this result as normal/abnormal . [facility] LancasterKpjbggcSDXLHUJZNX5585-19-86 04:12:00 Test Item Value Reference Range Interpretation Comments WBC (test code = WBC) 4.1 3.7-10.4 [place] 247202-06-28 04:12:00 Test Item Value Reference Range Interpretation Comments RBC (test code = RBC) 1.78 4.70-6.10 [place] 247202-06-28 04:12:00 Test Item Value Reference Range Interpretation Comments Hgb (test code = Hgb) 6.5 14.0-18.0 [facility] LancasterMvojfjoCCMDMLQZGI4937-18-40 04:12:00 Test Item Value Reference Range Interpretation Comments Hct (test code = Hct) 19.5 42.0-54.0 [facility] LancasterPjtihbzHQBERBGSGJ8007-08-11 04:12:00 Test Item Value Reference Range Interpretation Comments MCV (test code = MCV) 110.0 80.0-94.0 [facility] LancasterJfolrsuEZRLBEBDYQ7156-21-30 04:12:00 Test Item Value Reference Range Interpretation Comments MCH (test code = MCH) 36.5 pg 27.0-31.0 [facility] LancasterOdtygheSJAOMJFFWH3885-48-19 04:12:00 Test Item Value Reference Range Interpretation Comments MCHC (test code = MCHC) 33.2 32.0-36.0 [facility] LancasterKftmvxxPAMYYVLBRA7334-76-03 04:12:00 Test Item Value Reference Range Interpretation Comments RDW (test code = RDW) 19.0 11.5-14.5 [facility] LancasterLzxkjgaUTSCMOWDLY0288-27-57 04:12:00 Test Item Value Reference Range Interpretation Comments Platelet (test code = Platelet) 180 133-450 [facility] LancasterJlaucqvHRBGACLKXZ4392-95-62 04:12:00 Test Item Value Reference Range Interpretation Comments MPV (test code = MPV) 8.3 7.4-10.4 [facility] LancasterNlfdhchDVRQNDHWEW9780-13-99 04:12:00 Test Item Value Reference Range Interpretation Comments PTT (test code = PTT) 45.4 s 22.9-35.8 [facility] LancasterUytswdfADHJAOQCRO4169-64-90 04:12:00 Test Item Value Reference Range Interpretation Comments PT (test code = PT) 19.1 s 12.0-14.7 [facility] LancasterYpzwdvsEZXAEDQRRM5259-32-61 04:12:00 Test Item Value Reference Range Interpretation Comments INR (test code = INR) 1.62 1 0.85-1.17 [facility] LancasterErjwcztWMMDSWCRXT7030-30-77 04:12:00 Test Item Value Reference Range Interpretation Comments RBC Morph (test code = See Note (11/24/21 RBC Morph) 11:12 PM) [facility] LancasterIumoczuLUIZWBHDCS1709-37-61 04:12:00 Test Item Value Reference Range Interpretation Comments Plt Morph (test code = Normal (11/24/21 11:12 Plt Morph) PM) [place] 247202-06-28 04:12:00 Test Item Value Reference Range Interpretation Comments Segs (test code = Segs) 72.2 45.0-75.0 [place] 247202-06-28 04:12:00 Test Item Value Reference Range Interpretation Comments Lymphocytes (test code = Lymphocytes) 16.2 20.0-40.0 [place] 247202-06-28 04:12:00 Test Item Value Reference Range Interpretation Comments Monocytes (test code = Monocytes) 8.0 2.0-12.0 [place] [address]-06-28 04:12:00 Test Item Value Reference Range Interpretation Comments Eosinophils (test code = 2.7 See_Comment [A utomated message] The Eosinophils) system which ge nerated this result tra nsmitted reference range : <=4.0. The reference r samantha was not used to int erpret this result as normal/abnormal . [place] [address]-06-28 04:12:00 Test Item Value Reference Range Interpretation Comments Basophils (test code = 0.9 See_Comment [Aut omated message] The Basophils) system which ge nerated this result tra nsmitted reference range : <=1.0. The reference r samantha was not used to int erpret this result as normal/abnormal . [place] 247202-06-28 04:12:00 Test Item Value Reference Range Interpretation Comments Neutrophils # (test code = Neutrophils 2.9 1.5-8.1 #) [place] 247202-06-28 04:12:00 Test Item Value Reference Range Interpretation Comments Lymphocytes # (test code = Lymphocytes 0.7 1.0-5.5 #) [place] 247202-06-28 04:12:00 Test Item Value Reference Range Interpretation Comments Monocytes # (test code 0.3 See_Comment [Aut omated message] The = Monocytes #) system which generated this result tra nsmitted reference range : <=0.8. The reference r samantha was not used to int erpret this result as normal/abnormal . [place] 247202-06-28 04:12:00 Test Item Value Reference Range Interpretation Comments Eosinophils # (test code 0.1 See_Comment [A utomated message] The = Eosinophils #) system whic h generated this result tra nsmitted reference range : <=0.5. The reference r samantha was not used to int erpret this result as normal/abnormal . [facility] YddcdljWSRHCGCGAF9840-00-14 04:12:00 Test Item Value Reference Range Interpretation Comments Anisocyte (test code = 1+ *ABN*(11/24/21 Anisocyte) 11:12 PM) [facility]villeAbkiofvOPOPAQGOYV0053-44-59 04:12:00 Test Item Value Reference Range Interpretation Comments Macrocyte (test code = 1+ *ABN*(11/24/21 Macrocyte) 11:12 PM) [facility]villeDfyzrdhGCMDUFKNBS0602-32-72 04:12:00 Test Item Value Reference Range Interpretation Comments Microcyte (test code = 1+ *ABN*(11/24/21 Microcyte) 11:12 PM) [facility] [employer] [id number] 04:12:00 Test Item Value Reference Range Interpretation Comments ABO/Rh (test code = ABO/Rh) AB POS [facility] [employer] [id number] 04:12:00 Test Item Value Reference Range Interpretation Comments Antibody Scrn (test Negative (11/24/21 code = Antibody Scrn) 11:12 PM) [facility] [employer] [id number] 04:12:00 Test Item Value Reference Range Interpretation Comments Total CK (test code = Total CK) 86 12-191 [facility] [employer] [id number] 04:12:00 Test Item Value Reference Range Interpretation Comments HS Troponin I (test code = HS Troponin 316 I) [facility] [employer]2022-06-28 04:12:00 Test Item Value Reference Range Interpretation Comments Glucose Lvl (test code = Glucose Lvl) 261 70-99 [facility] [employer]2022-06-28 04:12:00 Test Item Value Reference Range Interpretation Comments BUN (test code = BUN) 60 7-22 [facility]2022-06-28 04:12:00 Test Item Value Reference Range Interpretation Comments Creatinine Lvl (test code = Creatinine 8.49 0.50-1.40 Lvl) [facility] [employer]2022-06-28 04:12:00 Test Item Value Reference Range Interpretation Comments Sodium Lvl (test code = Sodium Lvl) 133 135-145 [facility] [employer]2022-06-28 04:12:00 Test Item Value Reference Range Interpretation Comments Potassium Lvl (test code = Potassium 4.9 3.5-5.1 Lvl) [place] 378062-06-28 04:12:00 Test Item Value Reference Range Interpretation Comments Chloride Lvl (test code = Chloride Lvl) 93 95-109 [place] 378062-06-28 04:12:00 Test Item Value Reference Range Interpretation Comments CO2 (test code = CO2) 31 24-32 [place] 378062-06-28 04:12:00 Test Item Value Reference Range Interpretation Comments Calcium Lvl (test code = Calcium Lvl) 9.1 8.5-10.5 [place] 378062-06-28 04:12:00 Test Item Value Reference Range Interpretation Comments Total Protein (test code = Total 6.8 6.4-8.4 Protein) [place] 378062-06-28 04:12:00 Test Item Value Reference Range Interpretation Comments Albumin Lvl (test code = Albumin Lvl) 2.5 3.5-5.0 [place] 378062-06-28 04:12:00 Test Item Value Reference Range Interpretation Comments ALT (test code = ALT) 51 See_Comment [Auto mated message] The system which ge nerated this result transmit swathi reference range : <=65. The reference range was not used to interpr et this result as deny l/abnormal. [place] 378062-06-28 04:12:00 Test Item Value Reference Range Interpretation Comments AST (test code = AST) 36 See_Comment [Auto mated message] The system which ge nerated this result transmit swathi reference range : <=37. The reference range was not used to interpr et this result as deny l/abnormal. [place] 378062-06-28 04:12:00 Test Item Value Reference Range Interpretation Comments Alk Phos (test code = Alk Phos) 383 39-136 [place] 378062-06-28 04:12:00 Test Item Value Reference Range Interpretation Comments Bili Total (test code = Bili Total) 1.1 0.2-1.3 [place] 378062-06-28 04:12:00 Test Item Value Reference Range Interpretation Comments AGAP (test code = AGAP) 13.9 10.0-20.0 [facility]2022-06-28 04:12:00 Test Item Value Reference Range Interpretation Comments B/C Ratio (test code = B/C Ratio) 7 1 6-25 [facility]2022-06-28 04:12:00 Test Item Value Reference Range Interpretation Comments Globulin (test code = Globulin) 4.3 2.7-4.2 [place] 378062-06-28 04:12:00 Test Item Value Reference Range Interpretation Comments A/G Ratio (test code = A/G Ratio) 0.6 1 0.7-1.6 [facility]2022-06-28 04:12:00 Test Item Value Reference Range Interpretation Comments eGFR (test code = eGFR) 5 [facility]2022-06-28 04:12:00 Test Item Value Reference Range Interpretation Comments Procalcitonin Lvl (test 0.69 See_Comment [Au tomated message] code = Procalcitonin Lvl) Th e system which generated this result transmitted ref erence range: <=0.10. The reference range was not used to interpr et this result as normal/abnormal . [facility] LancasterIhlyosiQSDQGVAKRQ6317-63-85 04:12:00 Test Item Value Reference Range Interpretation Comments WBC (test code = WBC) 4.1 3.7-10.4 [facility] LancasterYyaquofVZYCPCFAYG0859-68-14 04:12:00 Test Item Value Reference Range Interpretation Comments RBC (test code = RBC) 1.78 4.70-6.10 [place] 247202-06-28 04:12:00 Test Item Value Reference Range Interpretation Comments Hgb (test code = Hgb) 6.5 14.0-18.0 [place] 247202-06-28 04:12:00 Test Item Value Reference Range Interpretation Comments Hct (test code = Hct) 19.5 42.0-54.0 [place] 247202-06-28 04:12:00 Test Item Value Reference Range Interpretation Comments MCV (test code = MCV) 110.0 80.0-94.0 [place] 247202-06-28 04:12:00 Test Item Value Reference Range Interpretation Comments MCH (test code = MCH) 36.5 pg 27.0-31.0 [facility] LancasterPkpjjraSQCXLAXAKA6449-02-94 04:12:00 Test Item Value Reference Range Interpretation Comments MCHC (test code = MCHC) 33.2 32.0-36.0 [facility] LancasterOrmbpljEJJYTRUDWZ3581-69-22 04:12:00 Test Item Value Reference Range Interpretation Comments RDW (test code = RDW) 19.0 11.5-14.5 [facility] LancasterHvlbnxrHTPFRQGVVY6577-27-98 04:12:00 Test Item Value Reference Range Interpretation Comments Platelet (test code = Platelet) 180 133-450 [facility] LancasterBytisskPCTDZRNXEA8055-59-59 04:12:00 Test Item Value Reference Range Interpretation Comments MPV (test code = MPV) 8.3 7.4-10.4 [facility] LancasterBgdozlkDIEEXGGMFT1682-66-29 04:12:00 Test Item Value Reference Range Interpretation Comments PTT (test code = PTT) 45.4 s 22.9-35.8 [facility] LancasterIcibkcwVKRCDVXVCL9801-78-86 04:12:00 Test Item Value Reference Range Interpretation Comments PT (test code = PT) 19.1 s 12.0-14.7 [facility] LancasterAqoygadKMSAKEBLYZ0080-64-66 04:12:00 Test Item Value Reference Range Interpretation Comments INR (test code = INR) 1.62 1 0.85-1.17 [facility] LancasterGhokzqfHHOOYTMUOS0054-59-49 04:12:00 Test Item Value Reference Range Interpretation Comments RBC Morph (test code = See Note (11/24/21 RBC Morph) 11:12 PM) [facility] LancasterKnbbehyPRGPRHIHTF6347-69-25 04:12:00 Test Item Value Reference Range Interpretation Comments Plt Morph (test code = Normal (11/24/21 11:12 Plt Morph) PM) [facility] LancasterOyrmzcdQBFWVRNPZM0344-41-58 04:12:00 Test Item Value Reference Range Interpretation Comments Segs (test code = Segs) 72.2 45.0-75.0 [facility] LancasterKfibxwoCGODSLVKLG4661-53-29 04:12:00 Test Item Value Reference Range Interpretation Comments Lymphocytes (test code = Lymphocytes) 16.2 20.0-40.0 [facility] LancasterWdttkffPHNFSGFOAV3389-37-95 04:12:00 Test Item Value Reference Range Interpretation Comments Monocytes (test code = Monocytes) 8.0 2.0-12.0 [place] 247202-06-28 04:12:00 Test Item Value Reference Range Interpretation Comments Eosinophils (test code = 2.7 See_Comment [A utomated message] The Eosinophils) system which ge nerated this result tra nsmitted reference range : <=4.0. The reference r samantha was not used to int erpret this result as normal/abnormal . [place] [address]-06-28 04:12:00 Test Item Value Reference Range Interpretation Comments Basophils (test code = 0.9 See_Comment [Aut omated message] The Basophils) system which ge nerated this result tra nsmitted reference range : <=1.0. The reference r samantha was not used to int erpret this result as normal/abnormal . [place] [address]-06-28 04:12:00 Test Item Value Reference Range Interpretation Comments Neutrophils # (test code = Neutrophils 2.9 1.5-8.1 #) [place] [address]-06-28 04:12:00 Test Item Value Reference Range Interpretation Comments Lymphocytes # (test code = Lymphocytes 0.7 1.0-5.5 #) [place] [address]-06-28 04:12:00 Test Item Value Reference Range Interpretation Comments Monocytes # (test code 0.3 See_Comment [Aut omated message] The = Monocytes #) system which generated this result tra nsmitted reference range : <=0.8. The reference r samantha was not used to int erpret this result as normal/abnormal . [place] [address]-06-28 04:12:00 Test Item Value Reference Range Interpretation Comments Eosinophils # (test code 0.1 See_Comment [A utomated message] The = Eosinophils #) system whic h generated this result tra nsmitted reference range : <=0.5. The reference r samantha was not used to int erpret this result as normal/abnormal . [place] 247202-06-28 04:12:00 Test Item Value Reference Range Interpretation Comments Anisocyte (test code = 1+ *ABN*(11/24/21 Anisocyte) 11:12 PM) [place] [address]-06-28 04:12:00 Test Item Value Reference Range Interpretation Comments Macrocyte (test code = 1+ *ABN*(11/24/21 Macrocyte) 11:12 PM) [facility] CenterGpwppaxXZTVEFEHHC4693-99-48 04:12:00 Test Item Value Reference Range Interpretation Comments Microcyte (test code = 1+ *ABN*(11/24/21 Microcyte) 11:12 PM) [facility]villeT[facility] HTVFZDI1328-02-69 04:12:00 Test Item Value Reference Range Interpretation Comments ABO/Rh (test code = ABO/Rh) AB POS [facility]villeOpen [facility] GWSOMSB6622-06-67 04:12:00 Test Item Value Reference Range Interpretation Comments Antibody Scrn (test Negative (11/24/21 code = Antibody Scrn) 11:12 PM) [facility]villeCMOSIS nv PMHAVFT2112-99-00 04:12:00 Test Item Value Reference Range Interpretation Comments Total CK (test code = Total CK) 86 12-191 [facility]villeCMOS[facility] nv OVKCNIL3970-71-74 04:12:00 Test Item Value Reference Range Interpretation Comments HS Troponin I (test code = HS Troponin 316 I) [facility] [employer] [id number] 04:12:00 Test Item Value Reference Range Interpretation Comments Glucose Lvl (test code = Glucose Lvl) 261 70-99 [facility] [employer] [id number] 04:12:00 Test Item Value Reference Range Interpretation Comments BUN (test code = BUN) 60 7-22 [facility] [employer] [id number] 04:12:00 Test Item Value Reference Range Interpretation Comments Creatinine Lvl (test code = Creatinine 8.49 0.50-1.40 Lvl) [facility] [employer] [id number] 04:12:00 Test Item Value Reference Range Interpretation Comments Sodium Lvl (test code = Sodium Lvl) 133 135-145 [facility] [employer] CRLEB1772-89-67 04:12:00 Test Item Value Reference Range Interpretation Comments Potassium Lvl (test code = Potassium 4.9 3.5-5.1 Lvl) [facility] [employer] NJVYH1509-31-65 04:12:00 Test Item Value Reference Range Interpretation Comments Chloride Lvl (test code = Chloride Lvl) 93 95-109 [facility] [employer] WHRVD0016-73-20 04:12:00 Test Item Value Reference Range Interpretation Comments CO2 (test code = CO2) 31 24-32 [facility]University [facility] [place] VTSPH5252-36-33 04:12:00 Test Item Value Reference Range Interpretation Comments Calcium Lvl (test code = Calcium Lvl) 9.1 8.5-10.5 [place] 378062-06-28 04:12:00 Test Item Value Reference Range Interpretation Comments Total Protein (test code = Total 6.8 6.4-8.4 Protein) [place] 378062-06-28 04:12:00 Test Item Value Reference Range Interpretation Comments Albumin Lvl (test code = Albumin Lvl) 2.5 3.5-5.0 [place] 378062-06-28 04:12:00 Test Item Value Reference Range Interpretation Comments ALT (test code = ALT) 51 See_Comment [Auto mated message] The system which ge nerated this result transmit swathi reference range : <=65. The reference range was not used to interpr et this result as deny l/abnormal. [place] 378062-06-28 04:12:00 Test Item Value Reference Range Interpretation Comments AST (test code = AST) 36 See_Comment [Auto mated message] The system which ge nerated this result transmit swathi reference range : <=37. The reference range was not used to interpr et this result as deny l/abnormal. [place] 378062-06-28 04:12:00 Test Item Value Reference Range Interpretation Comments Alk Phos (test code = Alk Phos) 383 39-136 [place] 378062-06-28 04:12:00 Test Item Value Reference Range Interpretation Comments Bili Total (test code = Bili Total) 1.1 0.2-1.3 [place] 378062-06-28 04:12:00 Test Item Value Reference Range Interpretation Comments AGAP (test code = AGAP) 13.9 10.0-20.0 [facility] [place] [id number] 04:12:00 Test Item Value Reference Range Interpretation Comments B/C Ratio (test code = B/C Ratio) 7 1 6-25 [place] 378062-06-28 04:12:00 Test Item Value Reference Range Interpretation Comments Globulin (test code = Globulin) 4.3 2.7-4.2 [facility] CenterSpe[facility] ZKXGJ3704-23-65 04:12:00 Test Item Value Reference Range Interpretation Comments A/G Ratio (test code = A/G Ratio) 0.6 1 0.7-1.6 [facility] CenterSpe[facility] [id number] 04:12:00 Test Item Value Reference Range Interpretation Comments eGFR (test code = eGFR) 5 [facility] [id number] 04:12:00 Test Item Value Reference Range Interpretation Comments Procalcitonin Lvl (test 0.69 See_Comment [Au tomated message] code = Procalcitonin Lvl) Th e system which generated this result transmitted ref erence range: <=0.10. The reference range was not used to interpr et this result as normal/abnormal . [facility] LancasterAuswepxOIKWEAHPML2098-79-00 04:12:00 Test Item Value Reference Range Interpretation Comments WBC (test code = WBC) 4.1 3.7-10.4 [facility] LancasterCzavlvrYGFYXVPMFX7360-14-53 04:12:00 Test Item Value Reference Range Interpretation Comments RBC (test code = RBC) 1.78 4.70-6.10 [facility] LancasterVkfjmzpFTGSAXDHVR2258-81-42 04:12:00 Test Item Value Reference Range Interpretation Comments Hgb (test code = Hgb) 6.5 14.0-18.0 [facility] LancasterVkcmcuaUGGXNTVHHZ7548-76-25 04:12:00 Test Item Value Reference Range Interpretation Comments Hct (test code = Hct) 19.5 42.0-54.0 [facility] LancasterZoaaoqsMMGPVPHKJV2806-57-35 04:12:00 Test Item Value Reference Range Interpretation Comments MCV (test code = MCV) 110.0 80.0-94.0 [facility]UsevgqzTDTHNLFNNJ2165-34-18 04:12:00 Test Item Value Reference Range Interpretation Comments MCH (test code = MCH) 36.5 pg 27.0-31.0 [facility] LancasterWyxyczaWEAPDVXTEV5542-63-63 04:12:00 Test Item Value Reference Range Interpretation Comments MCHC (test code = MCHC) 33.2 32.0-36.0 [facility] LancasterVllklntPKTEFQZRIF4852-10-48 04:12:00 Test Item Value Reference Range Interpretation Comments RDW (test code = RDW) 19.0 11.5-14.5 [facility] LancasterGlcpbitZPNYVQPKHI6728-07-77 04:12:00 Test Item Value Reference Range Interpretation Comments Platelet (test code = Platelet) 180 133-450 [facility] LancasterGixxpyzDWXCQHBNVJ1375-79-07 04:12:00 Test Item Value Reference Range Interpretation Comments MPV (test code = MPV) 8.3 7.4-10.4 [place] [id number] 04:12:00 Test Item Value Reference Range Interpretation Comments PTT (test code = PTT) 45.4 s 22.9-35.8 [facility] LancasterOabllhyORHOMHNDJM1295-75-18 04:12:00 Test Item Value Reference Range Interpretation Comments PT (test code = PT) 19.1 s 12.0-14.7 [place] [address]-06-28 04:12:00 Test Item Value Reference Range Interpretation Comments INR (test code = INR) 1.62 1 0.85-1.17 [place] [address]-06-28 04:12:00 Test Item Value Reference Range Interpretation Comments RBC Morph (test code = See Note (11/24/21 RBC Morph) 11:12 PM) [facility] LancasterLgmzojdVVIZGOZKQP0738-40-43 04:12:00 Test Item Value Reference Range Interpretation Comments Plt Morph (test code = Normal (11/24/21 11:12 Plt Morph) PM) [facility] Lanc[id number] 04:12:00 Test Item Value Reference Range Interpretation Comments Segs (test code = Segs) 72.2 45.0-75.0 [place] 247202-06-28 04:12:00 Test Item Value Reference Range Interpretation Comments Lymphocytes (test code = Lymphocytes) 16.2 20.0-40.0 [place] 247202-06-28 04:12:00 Test Item Value Reference Range Interpretation Comments Monocytes (test code = Monocytes) 8.0 2.0-12.0 [place] [address]-06-28 04:12:00 Test Item Value Reference Range Interpretation Comments Eosinophils (test code = 2.7 See_Comment [A utomated message] The Eosinophils) system which ge nerated this result tra nsmitted reference range : <=4.0. The reference r samantha was not used to int erpret this result as normal/abnormal . [facility] LancasterDrlhxobKBWRKLCLUX9093-80-02 04:12:00 Test Item Value Reference Range Interpretation Comments Basophils (test code = 0.9 See_Comment [Aut omated message] The Basophils) system which ge nerated this result tra nsmitted reference range : <=1.0. The reference r samantha was not used to int erpret this result as normal/abnormal . [facility]PC[facility]FOA7176-67-96 04:12:00 Test Item Value Reference Range Interpretation Comments Neutrophils # (test code = Neutrophils 2.9 1.5-8.1 #) [facility]yyfhgeEHDBJHKFGO3938-63-04 04:12:00 Test Item Value Reference Range Interpretation Comments Lymphocytes # (test code = Lymphocytes 0.7 1.0-5.5 #) [facility]AzaqyycLFPGZDPNOC2026-24-77 04:12:00 Test Item Value Reference Range Interpretation Comments Monocytes # (test code 0.3 See_Comment [Aut omated message] The = Monocytes #) system which generated this result tra nsmitted reference range : <=0.8. The reference r samantha was not used to int erpret this result as normal/abnormal . [facility] LancasterSxkbebuXDLSYXCSNL7770-17-75 04:12:00 Test Item Value Reference Range Interpretation Comments Eosinophils # (test code 0.1 See_Comment [A utomated message] The = Eosinophils #) system whic h generated this result tra nsmitted reference range : <=0.5. The reference r samantha was not used to int erpret this result as normal/abnormal . [facility] LancasterVrqedlwECRLSTFISI9620-32-05 04:12:00 Test Item Value Reference Range Interpretation Comments Anisocyte (test code = 1+ *ABN*(11/24/21 Anisocyte) 11:12 PM) [id number] 04:12:00 Test Item Value Reference Range Interpretation Comments Macrocyte (test code = 1+ *ABN*(11/24/21 Macrocyte) 11:12 PM) [id number] 04:12:00 Test Item Value Reference Range Interpretation Comments Microcyte (test code = 1+ *ABN*(11/24/21 Microcyte) 11:12 PM) [facility] [id number] 00:00:00 Test Item Value Reference Range Interpretation Comments A1C (test code = 4548-4) 8.8 HEMOGLOBIN [id number] 00:00:00 Test Item Value Reference Range Interpretation Comments A1C (test code = 4548-4) 8.3 HEMOGLOBIN [id number] 00:00:00 Test Item Value Reference Range Interpretation Comments A1C (test code = 4548-4) 10.3 Notes Date/Time Note Provider Source 2022-01-02 12:48:02-00:00 PROCEDURE INFORMATION: [facility] Exam: XR Chest Exam date and time: 01/02/2022 12:52 PM Age: 76 years old Clinical indication: /weakness, anemia TECHNIQUE: Imaging protocol: Radiologic exam of the chest. Views: 1 view. COMPARISON: CHEST 1VIEW DX 12/14/2021 3:59 PM FINDINGS: There is no abnormal radiopaque foreign body. There is cardiomegaly. There is no pneumothorax visible. There are prominent bilateral interstitial lung markings. There are old healed rib fractures on the left. IMPRESSION: 1. There is cardiomegaly. 2. There are prominent bilat eral interstitial lung markings. This may be due to pulmonary edema or atypical pneumonitis. Chester Kemp MD On 01/02/2022 13:11:40; [id number] 12:00:00-00:00 Radiation Dose CTDIVOL = 0 ( mGy): DLP = 1052.78 (mGy-cm) [facility] PROCEDURE INFORMATION: Exam: CTA Chest With Contrast Exam date and time: 12/15/2021 12:49 PM Age: 76 years old Clinical indication: /possible pe, positive for covid-19, respiratory infections and infla 12/14/21 TECHNIQUE: Imaging protocol: Computed tomographic a ngiography of the chest with contrast. 3D rendering (Not supervised by radiologist): [place] P and/or 3D reconstructed images were created by the technologist. Radiation optimization: All CT scans at this facility use at least one of these dose optimization techniques: automated exposure control; mA and/or kV adjustment per patient size (includes targeted e xams where dose is matched to clinical indication); or iterative reconstructio n. Contrast material: OMNI 350; Contrast volume: 85 ml; Contrast route: INTRAVENOUS (IV); COMPARISON: CHEST 1VIEW DX 12/14/2021 3:59 PM RADIATION DOSE METRICS: Total DLP (mGy-cm): 1052.78 FINDINGS: Pulmonary arteries: No filling defects are demon strated in the pulmonary outflow tract, right or left main pulmonary krystyna enma, ascending or descending pulmonary artery branches or the peripheral bran ches. Aorta: Unremarkable. No aortic aneurysm. No aort ic dissection. Lungs: Patchy areas of peripheral consolidation are seen in both upper lobes. The findings can be consiste nt with the COVID-19 pneumonitis given the clinical history. Note is made of attenuation of the trac heobronchial tree consistent with tracheobronchomalacia. Pleural spaces: Large bilate ral pleural effusions are noted. This is associated with biventricular enlargement and prominence of the pulmonary vascularity suspicious for congestive cardiac failure. Heart: See 'Pleural spaces' finding. Lymph nodes: Unremarkable. No enlarged lymph nod es. Gallbladder and bile ducts: Multiple small calcu li are seen layering dependently in the gallbladder. Bones/joints: Unremarkable. No acute fracture. Soft tissues: A moderate sized hiatus hernia is present. IMPRESSION: 1. No evidence for acute pulmonary thromboemboli sm. 2. Cholelithiasis. 3. Congestive cardiac failure with super imposed multifocal pneumonitis in both upper lobes and left lower lobe. 4. A moderate sized hiatus hernia is present. 5. Note is made of attenuation of the tracheobro nchial tree consistent with tracheobronchomalacia. Alexis Maloney MD On 12/15/2021 15:45:07; PILAR [id number] 2021-12-14 15:50:31-00:00 PROCEDURE INFORMATION: [facility] Exam: XR Chest Exam date and time: 12/14/2021 3:59 PM Age: 76 years old Clinical indication: /sob TECHNIQUE: Imaging protocol: Radiologic exam of the chest. Views: 1 view. COMPARISON: CHEST 1VIEW DX 12/03/2021 8:31 PM FINDINGS: Portable AP image. Moderately enlarged cardiac silhouette. Aortic atherosclerosis. Extensive coarse bilateral pulmonary opacities grossly unchanged. Progressive confluent opacity base of right hem ithorax. No pneumothorax. IMPRESSION: Progressive confluent opacity right lung base. Chester Back MD On 12/14/2021 16:21:28; SHARRI [id number] 2021-12-03 20:30:42-00:00 PROCEDURE INFORMATION: [facility] Exam: XR Chest Exam date and time: 12/03/2021 8:31 PM Age: 76 years old Clinical indication: weakness TECHNIQUE: Imaging protocol: Radiologic exam of the chest. Views: 1 view. COMPARISON: CHEST 1VIEW DX 11/24/2021 10:44 PM FINDINGS: Lungs: Again seen prominent interstitial opacities within both lungs. Increased retrocardiac and left lung base opacities. Pleural spaces: Right costophrenic angle sharp. Left costophrenic angle obscured by lung base opacity. No definite pneum othorax. Heart/Mediastinum: Cardiac silhouette moderately enlarged. Vasculature: Tortuous aorta with calcifications at the arch. Bones/joints: Degenerative changes within the sp ine. IMPRESSION: 1. Increased retrocardiac and left lung base opa city, which may represent atelectasis, consolidation and/or effusion. 2. No significant change of the prominent inters titial lung markings. Avtar Fortune MD On 12/03/2021 21:17:23; [id number] 2021-11-25 05:45:00-00:00 PROCEDURE INFORMATION: [facility] Exam: US Duplex Lower Extremity Veins, Bilateral Exam date and time: 11/25/2021 5:58 AM Age: 76 years old Clinical indication: /r>l swelling TECHNIQUE: Imaging protocol: Real-time Duplex ultrasound of the bilateral extremities with 2-D ferro scale, color Doppler flow and spectral waveform analysis with image documentation. Complete exam focused on the bila teral lower extremity veins. COMPARISON: CT ED Abdomen/Pelvis IV contrast only 11/24/2021 11:50 PM FINDINGS: Right deep veins: The common femoral, femoral, p roximal profunda femoral and popliteal veins are patent without thrombus. Nor mal Doppler waveforms. Normal compressibility and/or augmentation response. Right superficial veins: Saphenofemoral junction is patent without thrombus. Left deep veins: The common femoral, femoral, pr oximal profunda femoral and popliteal veins are patent without thrombus. Nor mal Doppler waveforms. Normal compressibility and/or augmentation response. Left superficial veins: Saphenofemoral junction is patent without thrombus. Soft tissues: Diffuse bilateral leg swelling and edema. IMPRESSION: No evidence of deep vein thrombosis. Cole Barnes MD On 11/25/2021 07:01:56; VR-GSYN [id number] 2021-11-25 05:45:00-00:00 PROCEDURE INFORMATION: [facility] Exam: US Abdomen, Limited; Right Upper Quadrant Exam date and time: 11/25/2021 5:49 AM Age: 76 years old Clinical indication: /r/o dick TECHNIQUE: Imaging protocol: Real time ultrasound of the abdomen with image documentation. Limited exam focused on the right upper quadrant . COMPARISON: CT ED Abdomen/Pelvis IV contrast only 11/24/2021 11:50 PM FINDINGS: Liver: The liver measures 20.1 cm. No focal lesi ons. Gallbladder: Small gallstones. Gallbladder wall is thickened measuring 5 mm. There is trace pericholecystic fluid. Sonographi c Marino sign is reported as negative.. Biliary ducts: Normal. No stones. No dilation. Pancreas: Mildly prominent echogenic pancreas Right kidney: The right kidney measures 10.1 cm. No mass. No hydronephrosis. Intraperitoneal space: Small volume of ascites. IMPRESSION: 1. Cholelithiasis. Slight ga llbladder wall thickening or pericholecystic fluid. Sonographic Marino's sign reported as negative. If there is concern for cholecystitis consider further assessment with h epatobiliary scintigraphy 2. Slight prominence of the pancreas. Correlate with laboratory values to exclude pancreatitis 3. Small volume of ascites Kit Pollard MD On 11/25/2021 07:54:47; VR [id number] 2021-11-25 02:17:08-00:00 PROCEDURE INFORMATION: [facility] Exam: XR Right Foot Exam date and time: 11/25/2021 2:04 AM Age: 76 years old Clinical indication: /right foot pain TECHNIQUE: Imaging protocol: Radiologic exam of the Right f oot. Views: 3 or more views. AP Oblique Lateral COMPARISON: No relevant prior studies available. FINDINGS: Bones/joints: Marked osteopenia. No acut e foot fracture or dislocation. Medial and lateral malleoli fractures are noted with sc rew fixation of the medial malleolus fracture. No evide nce for significant healing of the medial malleolus fracture. Soft tissues: Diffuse soft tissue swelli ng. No appreciable soft tissue gas. No radiopaque foreign body. Notes: If there is continued concern, follow-up radiographs or MRI should be considered for more complete assessment. IMPRESSION: 1. Marked osteopenia. No acute foot fracture or dislocation. 2. No evidence for significant healing of the turner rgically fixated medial malleolus fracture. Surendra Chavis MD On 11/25/2021 02:27:52; [id number] 2021-11-24 23:56:05-00:00 Radiation Dose CTDIVOL = 0 ( mGy): DLP = 675.2 (mGy-cm) [facility] PROCEDURE INFORMATION: Exam: CT Abdomen And Pelvis With Contrast Exam date and time: 11/24/2021 11:50 PM Age: 76 years old Clinical indication: Other: /anemia; Additional info: /anemia TECHNIQUE: Imaging protocol: Computed tomography of the abdomen and pelvis with contrast. Radiation optimization: All CT scans at this facility use at least one of these dose optimization techniques: automated exposure control; mA and/or kV adjustment per patient size (includes targeted e xams where dose is matched to clinical indication); or iterative reconstructio n. Contrast material: OMNI 350; Contrast volume: 10 0 ml; Contrast route: INTRAVENOUS (IV); COMPARISON: CHEST 1VIEW DX 11/24/2021 10:44 PM RADIATION DOSE METRICS: Total DLP (mGy-cm): 675.2 FINDINGS: Lungs: Patchy ground-glass infiltrates throughou t the imaged lungs. Pleural spaces: Small bilateral pleural effusion s. Heart: Cardiomegaly. Diaphragm: Moderate sized hiatal hernia. Liver: Normal. No mass. Gallbladder and bile ducts: Mild gallbladder wal l thickening. Pericholecystic edema. Cholelithiasis versus layering sludge or a sludge ball. Pancreas: Normal. No ductal dilation. Spleen: Small 10 mm splenic cyst. Adrenal glands: Left adrenal gland nodule measur ing up to 1.9 cm. Kidneys and ureters: Bilateral renal cysts. No h ydronephrosis. Exophytic, hyperdense lesion lower pole right kidney measur es 1.6 x 1.6 cm and demonstrates Hounsfield units of 60. Stomach and bowel: Colonic diverticulosis withou t acute diverticulitis. No acute bowel obstruction. Mild circumferential re ctal wall thickening. Appendix: No evidence of appendicitis. Intraperitoneal space: Small volume of scattered abdominopelvic ascites. No free air. No drainable fluid collections. Vasculature: Extensive calcific atherosc lerotic disease of the aorta and major branch vessels without aneurysmal dilatation. Lymph nodes: Unremarkable. No enlarged lymph nod es. Urinary bladder: Nondistended bladder limits ass essment. Reproductive: Unremarkable as visualized. Bones/joints: Rounded lucency superior a spect of the L2 vertebral body favored represent a Schmorl's node. Schmorl's nodes also involve the superior and inferior endplates of L3. Soft tissues: Large fat containing left inguinal hernia partially visualized extending into the left hemiscrotum. Smaller fat containing right inguinal hernia also partially visualized. IMPRESSION: 1. Patchy ground-glass infiltrates throughout th e imaged lungs may reflect pulmonary edema and pneumonia. Small bilateral p leural effusions and cardiomegaly also noted. 2. Moderate sized hiatal hernia. 3. Gallbladder wall thickening with pericholecys tic edema and cholelithiasis versus layering sludge or a sludge ball. Finding s may be further assessed by right upper quadrant ultrasound if clinically wa rranted. 4. Left adrenal nodule. Finding may be a ssessed further by nonemergent abdomen MRI without and with contrast to include in and out of phase imaging. 5. Hyperdense exophytic lower pole left renal ma ss. Solid neoplasm/renal cell carcinoma cannot be excluded and may also be ass essed at the time of contrast enhanced MRI. 6. Colonic diverticulosis without acute divertic ulitis. 7. Small volume of scattered abdominopelvic asci tristan. 8. Bilateral inguinal hernias containing fat par tially visualized, larger on the left. 9. L2 and L3 Schmorl's nodes are suggested. Lyti c metastasis of the L2 vertebral body is an additional differential con sideration and may be further assessed by dedicated lumbar spine MRI w ithout and with contrast if clinically warranted. 10. See above for additional nonacute findings. COMMENTS: Consistent with the [employer] Incidental Findings Committee white paper (J Am Vandana Radiol 2018): Any incidental renal lesion less than 1 cm or classified as too small to characterize, or any incidental cystic renal lesion characterized as simple-kaykay earing, is likely benign. No follow-up imaging is recommended for t hese lesions per consensus recommendations based on imaging criteria. Surendra Chavis MD On 11/25/2021 00:47:46; [id number] 2021-11-24 22:50:28-00:00 PROCEDURE INFORMATION: [facility] Exam: XR Chest Exam date and time: 11/24/2021 10:44 PM Age: 76 years old Clinical indication: /anemia TECHNIQUE: Imaging protocol: Radiologic exam of the chest. Views: 1 view. COMPARISON: No relevant prior studies available. FINDINGS: Lungs: Patchy ill-defined airspace disease of bettina th lungs preferentially involving the peripheral aspect of the right mid and left lower lungs. Pleural spaces: No pleural effusion. No pneumoth orax. Heart/Mediastinum: Cardiomegaly. Bones/joints: Osteopenia. IMPRESSION: 1. Patchy ill-defined airspace disease of both l ungs preferentially involving the peripheral aspect of the right mid and left lower lungs. Correlate for pneumonia. Follow-up to ensure complete resoluti on after appropriate therapy recommended. 2. Cardiomegaly. Surendra Chavis MD On 11/24/2021 22:53:49; [id number]
--- NOTE | 2022-11-15 15:07 | RAD REPORT ---
EXAM DESCRIPTION: RADChest Single View11/15/2022 2:40 pm CLINICAL HISTORY: CONGESTION COMPARISON: Chest Single View dated 11/08/2022; Chest Single View dated 09/12/2022; Chest Single View dated 09/11/2022; Chest Single View dated 08/20/2022 TECHNIQUE: Portable AP view of the chest. FINDINGS: Patchy airspace opacities worse on the right, and small to moderate right pleural effusion are stable. Stable cardiomegaly. Findings are concerning for congestive heart failure. No pneumotho rax or effusion. Mediastinal contours are unchanged. IMPRESSION: Stable findings, as above.
[2022-11-15 15:08] LABS: Absolute Lymphocytes (CBC) 0.8 K/uL (0.7-4.9); Hematocrit 21.4 % (39.6-49.0); Lymphocytes % 19.6 % (15.3-44.8); MCV 84.3 fL (80-100); MPV 7.3 fL (7.6-11.3); RBC Red Blood Cell Count 2.53 M/uL (4.33-5.43)
[2022-11-15 15:36] LABS: Albumin 3.1 g/dL (3.4-5.0); Bilirubin Direct 0.4 mg/dL (0-0.2); Bilirubin Indirect, Calculated 0.2 mg/dL (0.2-0.8); Bilirubin Total 0.6 mg/dL (0.2-1.0); Magnesium 2.5 mg/dL (1.6-2.4); Potassium 4.6 mEq/L (3.5-5.1); Protein, Total 7.2 g/dL (6.4-8.2)
[2022-11-15 15:40] LABS: Troponin High Sensitivity 151.6 pg/mL (<58.9)
[2022-11-15 16:12] LABS: Protime INR 1.06
--- NOTE | 2022-11-15 16:21 | EDPHYS ---
Physician Documentation [facility] Name: Guzman Mayers Age: 77 yrs Sex: Male : 1945 Arrival Date: 11/15/2022 Time: 13:41 Bed 2 Private MD: ED Physician Hilda Fortune HPI: 11/15 13:52 This 77 yrs old Male presents to ER via EMS with complaints of Weakness. sp3 13:52 77-year-old male well-known to the ED with a history of end-stage renal disease with sp3 Wednesday dialysis for which she did go on Wednesday, congestive heart failure, others now presents to the ED with chief complaint "I feel like I may need a transfusion" and states that he was having generalized weakness over the last several days. He denies any bleeding, melena, vomiting or diarrhea. He also denies any fever, headache, chest pain, shortness of breath, abdominal pain, nausea, vomiting, diarrhea, focal neurodeficit or any other signs or symptoms on ROS at this time. He states he is globally and generally weak and cannot "get up to do anything at all".. Historical: - Allergies: 13:46 Codeine; ko1 13:46 GABAPENTIN; ko1 - Home Meds: 13:46 sevelamer carbonate 800 mg Oral tablet 3 times per day [Active]; atorvastatin 40 mg ko1 Oral tablet daily [Active]; carvedilol 6.25 mg Oral tablet 2 times per day [Active]; aspirin 81 mg Oral tablet, delayed release (enteric coated) 2 times per day [Active]; Dialyvite 800 800 mcg Oral tablet,chewable daily [Active]; metoprolol tartrate 25 mg Oral tablet 0.5 tabs 2 times per day [Active]; pantoprazole 40 mg Oral tablet, delayed release (enteric coated) daily [Active]; - PMHx: 13:46 ADD/ADHD; CHF; Dialysis; MWF; dialysis , , sat, uses o2 when sleeping.; COPD; ko1 High Cholesterol; CKD; Diabetes - IDDM; HTN; Hypertension; - Immunization history:: Adult Immunizations unknown. - Social history:: Smoking status: Patient denies any tobacco usage or history of. ROS: 13:54 Constitutional: Negative for fever, chills, and weight loss, Eyes: Negative for injury, sp3 pain, redness, and discharge, ENT: Negative for injury, pain, and discharge, Neck: Negative for injury, pain, and swelling, Cardiovascular: Negative for chest pain, palpitations, and edema, Abdomen/GI: Negative for abdominal pain, nausea, vomiting, diarrhea, and constipation, Back: Negative for injury and pain, MS/Extremity: Negative for injury and deformity, Skin: Negative for injury, rash, and discoloration. 13:54 Psych: Negative for depression, anxiety, suicide ideation, homicidal ideation, and hallucinations, Allergy/Immunology: Negative for hives, rash, and allergies. 13:54 All other systems are negative. Exam: 13:55 Constitutional: This is a well developed, well nourished patient who is awake, alert, sp3 and in no acute distress. Head/Face: Normocephalic, atraumatic. Eyes: Pupils equal round and reactive to light, extra-ocular motions intact. Lids and lashes normal. Conjunctiva and sclera are non-icteric and not injected. Cornea within normal limits. Periorbital areas with no swelling, redness, or edema. ENT: Nares patent. No nasal discharge, no septal abnormalities noted. External auditory canals are clear. Oropharynx with no redness, swelling, or masses, exudates, or evidence of obstruction, uvula midline. Mucous membranes moist. Neck: Trachea midline, no thyromegaly or masses palpated, and no cervical lymphadenopathy. Supple, full range of motion without nuchal rigidity, or vertebral point tenderness. No Meningismus. Chest/axilla: Normal chest wall appearance and motion. Nontender with no deformity. No lesions are appreciated. Cardiovascular: Regular rate and rhythm with a normal S1 and S2. No gallops, murmurs, or rubs. Normal PMI, no JVD. No pulse deficits. Abdomen/GI: Soft, non-tender, with normal bowel sounds. No distension or tympany. No guarding or rebound. No evidence of tenderness throughout. MS/ Extremity: Pulses equal, no cyanosis. Neurovascular intact. Full, normal range of motion. 13:55 Respiratory: Mild Rales noted with active cough which is his baseline.. 13:55 Skin: Mild pallor noted. Capillary refill and clinical circulatory exam is normal.. Vital Signs: 13:43 BP 141 / 69; Pulse 61; Resp 16; Temp 98; Pulse Ox 96% on 2.5 lpm NC; ko1 14:18 BP 149 / 68; Pulse 56; Resp 18; Pulse Ox 97% on 2.5 lpm NC; ph 15:30 BP 146 / 70; Pulse 56; Resp 16; Pulse Ox 98% on 2.5 lpm NC; ph 16:30 BP 152 / 60; Pulse 56; Resp 18; Pulse Ox 95% on 2.5 lpm NC; ph 17:50 BP 146 / 59; Pulse 56; Resp 18; Pulse Ox 100% on 2.5 lpm NC; ph 19:30 BP 157 / 59; Pulse 56; Resp 17; Pulse Ox 100% on 2.5 lpm NC; ll3 20:07 BP 144 / 75; Pulse 56; Resp 15; Pulse Ox 100% on 2.5 lpm NC; ha1 21:43 BP 139 / 65; Pulse 57; Resp 18; Pulse Ox 100% on 2.5 lpm NC; ll3 23:00 BP 164 / 61; Pulse 57; Resp 21; Pulse Ox 100% on 2.5 lpm NC; ll3 MDM: 13:48 Patient medically screened. sp3 13:58 Data reviewed: vital signs, nurses notes, old medical records, lab test result(s), EKG, sp3 radiologic studies. ED course: 77-year-old male with extensive past medical history now here for generalized weakness. Differential diagnosis includes dehydration, anemia, infection of unknown etiology, congestive heart failure, among others. Will obtain chest x-ray, laboratory values, urinalysis and general supportive care. Disposition to be based on patient course and work-up results.. 16:18 ED course: Troponin is at baseline given his elevated creatinine and consistent with sp3 prior values. Patient's hemoglobin is 7.0 and we will transfuse him 2 units prior to his discharge. Patient does not have any acute or brisk bleeds. Patient has consistently gotten transfusions over time. He does not wish to be admitted at this time. Patient knows he may return at any time if his symptoms worsen or continue.. 11/15 13:49 Order name: Basic Metabolic Panel sp3 11/15 13:49 Order name: CBC with Diff; Complete Time: 15:47 sp3 11/15 13:49 Order name: LFT's 3 11/15 13:49 Order name: Magnesium 3 11/15 13:49 Order name: NT PRO-BNP 3 11/15 13:49 Order name: PT-INR 3 11/15 13:49 Order name: Troponin HS 3 11/15 13:49 Order name: Lactate w/ 2H reflex if indic.; Complete Time: 15:47 3 11/15 15:48 Order name: Type And Screen sp3 11/15 15:50 Order name: Type and Screen EDMS 11/15 15:53 Order name: Bb Add On kj1 11/15 13:49 Order name: XRAY Chest (1 view); Complete Time: 15:08 3 11/15 13:49 Order name: EKG; Complete Time: 13:56 3 11/15 13:49 Order name: Cardiac monitoring; Complete Time: 13:50 3 11/15 13:49 Order name: EKG - Nurse/Tech; Complete Time: 14:01 3 11/15 13:49 Order name: IV Saline Lock; Complete Time: 15:05 3 11/15 13:49 Order name: Labs collected and sent; Complete Time: 15:05 3 11/15 13:49 Order name: O2 Per Protocol; Complete Time: 13:50 3 11/15 13:49 Order name: O2 Sat Monitoring; Complete Time: 13:50 sp3 Administered Medications: No medications were administered Disposition Summary: 11/16/22 00:36 Discharge Ordered Location: Home(11/16/22 00:36) sb4 Problem: an ongoing problem sb4 Symptoms: have improved sb4 Condition: Stable(11/16/22 00:36) sb4 Diagnosis - Anemia in chronic kidney disease sb4 Followup: sb4 - With: Private Physician - When: 1 - 2 days - Reason: Recheck today's complaints, Continuance of care, Re-evaluation by your physician Forms: - Medication Reconciliation Form sb4 - Thank You Letter sb4 - Antibiotic Education sb4 - Prescription Opioid Use sb4 Signatures: Dispatcher [employer] EDHilda Smith MD MD sp3 Analia Stoll, GILSON RN Elisa Gomez PARudy PARudy sb4 Corrections: (The following items were deleted from the chart) 13:59 13:56 Urinalysis W/Microscopic+U.LAB.BRZ ordered. EDMS EDMS 23:53 16:20 Home sp3 as7 23:53 16:20 Stable sp3 as7 :53 16:20 Generalized weakness, chronic anemia, transfusion of PRBCs sp3 as7
--- NOTE | 2022-11-15 16:21 | ER ---
Nurse's Notes [facility] Name: Guzman Mayers Age: 77 yrs Sex: Male : 1945 Arrival Date: 11/15/2022 Time: 13:41 Bed 2 Private MD: Diagnosis: Anemia in chronic kidney disease Presentation: 11/15 13:43 Chief complaint: EMS states: patient called for generalized weakness, calls EMS ko1 frequently, only negative finding was a blood sugar of 341. Coronavirus screen: At this time, the client does not indicate any symptoms associated with coronavirus-19. Ebola Screen: No symptoms or risks identified at this time. Initial Sepsis Screen: Does the patient meet any 2 criteria? No. Patient's initial sepsis screen is negative. Does the patient have a suspected source of infection? No. Patient's initial sepsis screen is negative. Risk Assessment: Do you want to hurt yourself or someone else? Patient reports no desire to harm self or others. Onset of symptoms was November 15, 2022. Care prior to arrival: Medication(s) given: Glucose check: 341 Oxygen administered. via nasal cannula. Activity prior to arrival:. 13:43 Method Of Arrival: EMS: [place] ko1 13:43 Acuity: [place] 3 ko1 Triage Assessment: 13:46 General: Appears in no apparent distress. comfortable, Behavior is calm, cooperative, ko1 appropriate for age. Pain: Denies pain. Historical: - Allergies: 13:46 Codeine; ko1 13:46 GABAPENTIN; ko1 - Home Meds: 13:46 sevelamer carbonate 800 mg Oral tablet 3 times per day [Active]; atorvastatin 40 mg ko1 Oral tablet daily [Active]; carvedilol 6.25 mg Oral tablet 2 times per day [Active]; aspirin 81 mg Oral tablet, delayed release (enteric coated) 2 times per day [Active]; Dialyvite 800 800 mcg Oral tablet,chewable daily [Active]; metoprolol tartrate 25 mg Oral tablet 0.5 tabs 2 times per day [Active]; pantoprazole 40 mg Oral tablet, delayed release (enteric coated) daily [Active]; - PMHx: 13:46 ADD/ADHD; CHF; Dialysis; MWF; dialysis tues, thurs, sat, uses o2 when sleeping.; COPD; ko1 High Cholesterol; CKD; Diabetes - IDDM; HTN; Hypertension; - Immunization history:: Adult Immunizations unknown. - Social history:: Smoking status: Patient denies any tobacco usage or history of. Screenin:18 [facility] ED Fall Risk Assessment (Adult) History of falling in the last 3 months, ph including since admission Yes- single mechanical fall (1 pt) Confusion or Disorientation No (0 pts) Intoxicated or Sedated No (0 pts) Impaired Gait Yes (1 pt) Mobility Assist Device Used Yes (1 pt) Altered Elimination Yes (1 pt) Score/Fall Risk Level 3 or more points = High Risk Oriented to surroundings, Maintained a safe environment, Hourly rounding (assess needs \T\ fall precautionary measures) done, Used ambulatory aids as needed (educated on \T\ assisted with). Abuse screen: Denies threats or abuse. Denies injuries from another. Nutritional screening: No deficits noted. Tuberculosis screening: No symptoms or risk factors identified. Assessment: 14:20 General: Appears in no apparent distress. comfortable, Behavior is calm, cooperative, ko1 appropriate for age. Pain: Denies pain. Neuro: No deficits noted. Cardiovascular: No deficits noted. Respiratory: No deficits noted. GI: No deficits noted. : No deficits noted. EENT: No deficits noted. Derm: No deficits noted. Musculoskeletal: Reports weakness in generalized. 16:38 Reassessment: Patient appears in no apparent distress at this time. Patient and/or ph family updated on plan of care and expected duration. Pain level reassessed. Patient is alert, oriented x 3, equal unlabored respirations, skin warm/dry/pink. D/C pending blood transfusion, 2 units PRBCs. 17:50 Reassessment: Patient appears in no apparent distress at this time. Patient and/or ph family updated on plan of care and expected duration. Pain level reassessed. Patient is alert, oriented x 3, equal unlabored respirations, skin warm/dry/pink. 19:30 Reassessment: Patient and/or family updated on plan of care and expected duration. Pain ll3 level reassessed. Patient is alert, oriented x 3, equal unlabored respirations, skin warm/dry/pink. Vital Signs: 13:43 BP 141 / 69; Pulse 61; Resp 16; Temp 98; Pulse Ox 96% on 2.5 lpm NC; ko1 14:18 BP 149 / 68; Pulse 56; Resp 18; Pulse Ox 97% on 2.5 lpm NC; ph 15:30 BP 146 / 70; Pulse 56; Resp 16; Pulse Ox 98% on 2.5 lpm NC; ph 16:30 BP 152 / 60; Pulse 56; Resp 18; Pulse Ox 95% on 2.5 lpm NC; ph 17:50 BP 146 / 59; Pulse 56; Resp 18; Pulse Ox 100% on 2.5 lpm NC; ph 19:30 BP 157 / 59; Pulse 56; Resp 17; Pulse Ox 100% on 2.5 lpm NC; ll3 20:07 BP 144 / 75; Pulse 56; Resp 15; Pulse Ox 100% on 2.5 lpm NC; ha1 21:43 BP 139 / 65; Pulse 57; Resp 18; Pulse Ox 100% on 2.5 lpm NC; ll3 23:00 BP 164 / 61; Pulse 57; Resp 21; Pulse Ox 100% on 2.5 lpm NC; ll3 ED Course: 13:43 Patient arrived in ED. ko1 13:43 Analia Stoll, RN is Primary Nurse. ko1 13:43 Hilda Fortune MD is Attending Physician. sp3 13:46 Triage completed. ko1 13:46 Arm band placed on right wrist. ko1 14:19 Patient has correct armband on for positive identification. Bed in low position. Call ph light in reach. Side rails up X2. Client placed on continuous cardiac and pulse oximetry monitoring. NIBP monitoring applied. 14:44 XRAY Chest (1 view) In Process Unspecified. EDMS 15:30 Inserted saline lock: 22 gauge in right forearm, using aseptic technique. ph Administered Medications: No medications were administered Medication: 14:18 VIS not applicable for this client. ph 18:00 Blood products: PRBCs X 1 unit given. ph Outcome: 16:20 Discharge ordered by . sp3 11/16 00:36 Discharge ordered by . sb4 00:42 Patient left the ED. sb4 Signatures: Dispatcher [employer] EDMS Piedad De La Rosa RN RN ph Patel, Setul, MD MD sp3 Hu Cortez RN RN 3 Tawana Soto RN RN haAnalia Brown, RN RN ko1 Elisa Bello PA-C PA-C sb4 Corrections: (The following items were deleted from the chart) 11/15 18:18 14:18 BP 149 / 68; Pulse 56bpm; Resp 18bpm; Pulse Ox 97% RA; ph ph 18:18 17:50 BP 146 / 59; Pulse 56bpm; Resp 18bpm; Pulse Ox 100% RA; ph ph
[2022-11-15] MEDS ORDERED: NA CHLORIDE 0.9% 250 ML ONE ×2 (16:35→20:47)
[2022-11-16 00:47] VITALS: TEMP 98
[2022-11-16 00:54] VITALS: O2SAT 100
[2022-11-16 01:01] VITALS: BP 164/61
--- NOTE | 2022-11-16 17:51 | EKG ---
Test Date: 2022-11-15 Test Time: 13:59:05 Personal Care Service Provider: TL MEASUREMENT RESULTS: Intervals: Rate: 56 DC: QRSD: 178 QT: 524 QTc: 505 Ector: P: 54 DC: QRS: 262 T: 0 INTERPRETIVE STATEMENTS: Atrial flutter Right bundle branch block Septal infarct, age undetermined Abnormal ECG Compared to ECG 11/08/2022 20:13:14 Atrial fibrillation no longer present Left-axis deviation no longer present Myocardial infarct finding still present Electronically Signed On 11-16-22 17:49:16 CDT by [place] Henriquez
== END 2022-11-16 00:42 | disposition home or self-care (01) ==
LOC: ER 13:41
DX: E11.22 Type 2 diabetes mellitus with diabetic chronic kidney disease (principal); I13.2 Hypertensive heart and chronic kidney disease with heart failure and with stage 5 chronic kidney disease, or end stage renal disease; D63.1 Anemia in chronic kidney disease; I50.9 Heart failure, unspecified; N18.6 End stage renal disease; Z99.2 Dependence on renal dialysis; J44.9 Chronic obstructive pulmonary disease, unspecified; Z88.5 Allergy status to narcotic agent; Z88.8 Allergy status to other drugs, medicaments and biological substances; Z79.82 Long term (current) use of aspirin
CPT/HCPCS: 93005; 85025; 80048; 36415; 86900; 83735; 86850; 85610; 86901; 80076; 83605; 86920 ×2; 84484; 83880; 71045; 36430; 99284; P9016 ×2; J7050 ×2

== ENCOUNTER 2022-11-20 15:42 | Emergency (ER) | payer OTHER, BC ==
--- OUTSIDE RECORDS SUMMARY | 2022-11-20 16:22 | XMS REPORT | Continuity of Care Document ---
:1945 Author Organization [facility] t Address [address] [facility] [place] [address] Care Team Providers Name Role Phone LA FORTUNE Primary Care Physician Unavailable La Fortune Attending Clinician Unavailable [id number] Attending Clinician Unavailable RONNIE AYALA Attending Clinician [...] Velazquez Attending Clinician Pepper Crawford Attending Clinician [phone] PEPPER CRAWFORD Attending Clinician Unavailable MONSE VELAZQUEZ Attending Clinician Unavailable CHILANGO ARMSTRONG NATASHA Attending Clinician Unavailable [id number] Admitting Clinician Unavailable RONNIE AYALA Admitting Clinician Unavailable MINE MOSQUEDA Admitting Clinician Unavailable Mine Mosqueda DO Admitting Clinician ZACHARY BRUNO Admitting Clinician Unavailable Zachary Bruno Admitting Clinician Monse Velazquez Admitting Clinician [phone] MONSE VELAZQUEZ Admitting Clinician Unavailable CHILANGO ARMSTRONG NATASHA Admitting Clinician Unavailable Payers Payer Name Policy Type Policy Effective Date Expiration Date Sour ce Number MEDICARE PART A [id number] 2011 AND B 00:00:00 MEDICARE PART A [id number] 2010 \\T\\ B 00:00:00 BCBS TRADITIONAL [id number] 2014 00:00:00 Blue Cross Blue 6 [id number] 2014 [facility] 00:00:00 - [facility] [id number] BCTX BCTI [id number] MEDICARE NOVITAS [id number] 2011 [facility] 00:00:00 - [facility] MEDICARE NOVITAS [id number] 2011 [facility] 00:00:00 - [facility] MEDICARE NOVITAS [id number] 2011 [facility] 00:00:00 [facility] Problems Condition Condition Condition Status Onset Resolution Last Treating Co mments Source Name Details Category Date Date Treatment Clinician Date E46 E46 Disease Active Univers Unspecifie Unspecifie 5-16 it y of d severe d severe 00:00: [place] protein-ca protein-ca 00 Me dical ajay ajay Branch malnutriti malnutriti on on Elevated Elevated Disease Active Unive rs troponin I troponin I 5-14 it y of level level 00:00: [place] 00 Medical Branch Elevated Elevated Disease Active [...] 5-14 it y of on on 00:00: [facility] Syncope Syncope Disease Active Univers 5-14 ity of 00:00: [place] [address] Medical Branch Anemia Anemia Disease Active Univers associated associated 5-14 it y of with with 00:00: [place] nutritiona nutritiona 00 Me dical l Branch deficiency deficiency Dyslipidem Dyslipidem Disease Active U nivers ia ia 5-14 ity of 00:00: [place] [facility] Bifascicul Bifascicul Disease Active U nivers ar block ar block 5-14 ity of 00:00: [place] [facility] Atrial Atrial Disease Active Univers flutter flutter 5-14 ity of 00:00: [facility] Encephalop Encephalop Disease Active U nivers athy athy 5-14 ity of 00:00: [place] [facility] Hypoglycem Hypoglycem Disease Active U nivers ia ia 5-13 ity of 00:00: [place] [facility] LOW LOW Diagnosis Active 2022-01-02 [...] BREATHING Y 12-14 17:56:00 l BREATHING 00:00: [place] Active 00 12/14/2021 [facility] [place] ABNORNAL ABNORNAL Diagnosis Active 2021-12-16 [facility] LAB LAB Active 12-03 05:50:00 l 12/03/2021 08:00: Thomas moyer [facility] 00 [place] ANEMIA, ANEMIA, Diagnosis Active 2021-12-16 [facility] COVID-19 COVID-19 11-24 05:50:00 l Active 00:00: [place] 11/24/2021 [facility] [place] LOW LOW Diagnosis Active 2021-11-24 Mem oria HEMOGOBLIN HEMOGOBLIN 11-24 23:20:00 l Active 00:00: [place] 11/24/2021 00 [facility] Cellulitis Cellulitis Disease Active U nivers of right of right 12-29 ity of leg leg 00:00: [address] [id number] Other Problem Common obesity Spirit due to - CHI excess [facility] [id number] Metabolic Problem Com mon syndrome Spirit - [facility] [id number] Body mass Problem Com mon index Spirit [BMI] - [facility] 30.0-30.9, [facility] [id number] Frailty Problem Commo n syndrome Spirit in - [facility] geriatric [facility] 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 - [facility] , single major St episode depressive [facility] Medical [facility] Center prior episode 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 - [facility] Chronic Chronic Problem Common systolic systolic Spirit heart congestive - CHI failure heart [facility] [id number] 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 - [facility] [id number] GERD Problem Common without Spirit esophagiti - [facility] s [facility] [id number] Type 2 Problem Common diabetes Spirit mellitus - CHI with [facility] [id number] Mixed Problem Common hyperlipid Spirit emia - [facility] [id number] Noncomplia Problem Co mmon nce of Spirit patient - [facility]I with [facility] Chronic +5th digit Problem Comm on atrial eff Spirit fibrillati 02/28/19*Ch - [facility]I on ronic St (disorder[facility] [id number] 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 disease 5 chronic Medica l [...] gabapent Active Unknown Commo n in in [facility] codeine codeine Active Unknown Common [facility] codeine codeine Active Memoria l [place] gabapent gabapent Active Memori a in in l [place] Social History Social Habit Start Date Stop Date Quantity Comments Source History of tobacco Cigarette Smoker University of use [place] [facility] History SDOH University o f Alcohol Std Drinks [place] [facility] History SDOH University o f Alcohol Binge [place] [facility] History SDOH Social Unive rsity of Connections [facility] Med ical Together Branch History SDOH Social Unive rsity of Connections [facility] Medical Branch History SDOH Social Unive rsity of Connections [place] [facility] Membership Branch History SDOH Social Unive rsity of Connections [place] [facility] Meetings Branch Alcohol intake 2022-10-31 2022-10-31 Ex-drinker University of 00:00:00 00:00:00 (finding) [place] [facility] History SDOH 2022-10-12 2022-10-12 1 University o f Alcohol Frequency 00:00:00 00:00:00 [facility] edical Branch History SDOH Social 2022-10-12 2022-10-12 5 Unive rsity of Connections Phone 00:00:00 00:00:00 [facility] edical Branch History SDOH Social 2022-10-12 2022-10-12 [...] 1 Univers ity of Worry 00:00:00 00:00:00 [place] [facility] History SDOH Food 2022-10-12 2022-10-12 1 Univers ity of Scarcity 00:00:00 00:00:00 [place] [facility] History SDOH 2022-10-12 2022-10-12 2 University o f Transport Med 00:00:00 00:00:00 [place] Medic al [facility] History SDOH 2022-10-12 2022-10-12 2 University o f Transport Non-Med 00:00:00 00:00:00 [place] M edical Branch History SDOH 2022-10-12 2022-10-12 2 University o f Housing Unable to 00:00:00 00:00:00 [place] M edical Pay Branch History SDNV 2022-10-12 2022-10-12 1 University o f Housing Places 00:00:00 00:00:00 [place] Medi yahaira Lived Branch History SDNV 2022-10-12 [...] sure University of SARS-CoV-2 (event) 00:00:00 13:56:[address] [facility] Sex Ass[birth year] At [birth year] Universit y of 00:00:00 00:00:[address] [facility] Smoking Status Start Date Stop Date Source Social History 2021-12-04 02:37:37 2021-12-04 02:37:37 [facility] Medications Ordered Filled Start Stop Current Ordering Indication Dosage Frequency Signature Comments Components Source Medication Medication Date Date Medication? Clinician (SIG) Name Name aspirin 81 Yes [id number] 81mg Take 1 Univers mg EC 5-19 tablet by ity of tablet 00:00: mouth in [place] 00 the Medical morning. Branch aspirin 81 Yes [id number] 81mg Take 1 Univers mg EC 5-19 tablet by ity of tablet 00:00: mouth in [place] 00 the Medical morning. Branch aspirin 81 0 Yes [id number] 81mg Take 1 Univers mg EC 5-19 tablet by ity of tablet 00:00: mouth in [place] 00 the Medical morning. Branch citalopram Yes 20mg Take 1 Unive rs 20 mg 5-18 tablet by ity of tablet 14:40: mouth in [place] [address] the Medical morning. Branch atorvastati Yes 40mg Take 40 mg Univers n (LIPITOR) 5-18 by mouth ity of 40 mg 14:40: at [place] [address] bedtime. Medical Branch MULTIVITAMI Yes 1{tbl} Take 1 Tab Univers NS WITH 5-18 by mouth ity of EXTRA C 14:40: daily. [place] [address] Medical Branch citalopram Yes 20mg Take 1 Unive rs 20 mg 5-18 tablet by ity of tablet 14:40: mouth in [place] [address] the Medical morning. Branch atorvastati Yes 40mg Take 40 mg Univers n (LIPITOR) 5-18 by mouth ity of 40 mg 14:40: at [place] [address] bedtime. Medical Branch MULTIVITAMI Yes 1{tbl} Take 1 Tab Univers NS WITH 5-18 by mouth ity of EXTRA C 14:40: daily. [place] [address] Medical Branch citalopram Yes 20mg Take 1 [...] ity of M.REC.ANLOG 12:58: 00:00 under the [place] (LANTUS 33 :00 skin every Medica l SOLOSTAR morning. Branch PA) carvediloL Yes [id number] 6.25mg Take 1 Univers 6.25 mg 5-18 tablet by ity of tablet 00:00: mouth in [place] 00 the Medical morning Branch and 1 tablet in the evening. Take with meals. pantoprazol Yes [id number] 40mg Take 1 Univers e 40 mg EC 5-18 tablet by ity of tablet 00:00: mouth in [place] 00 the Medical morning. Branch carvediloL Yes [id number] 6.25mg Take 1 Univers 6.25 mg 5-18 tablet by ity of tablet 00:00: mouth in [place] the morning Branch and 1 tablet in the evening. Take with meals. pantoprazol Yes [id number] 40mg Take 1 Univers e 40 mg EC 5-18 tablet by ity of tablet 00:00: mouth in [place] the morning. Branch carvediloL Yes [id number] 6.25mg Take 1 Univers 6.25 mg 5-18 tablet by ity of tablet 00:00: mouth in [place] the morning Branch and 1 tablet in the evening. Take with meals. pantoprazol Yes [id number] 40mg Take 1 Univers e 40 mg EC 5-18 tablet by ity of tablet 00:00: mouth in [place] the morning. Branch amoxicillin 2022- Yes [id number] 500mg Take 1 Univers -pot 5-18 05-26 tablet by ity of clavulanate 00:00: 04:59 [place] 500 mg 00 :00 every 24 Medical (AUGMENTIN) (twenty-fo Br anch 500-125 mg ur) hours tablet for 7 days. amoxicillin 2022- Yes [id number] 500mg Take 1 Univers -pot 5-18 05-26 tablet by ity of clavulanate 00:00: 04:59 [place] 500 mg 00 :00 every 24 Medical (AUGMENTIN) (twenty-fo Br anch 500-125 mg ur) hours tablet for 7 days. FENTanyl PF 0 Yes 25ug 25 mcg, Uni vers (SUBLIMAZE 5-17 Slow IV ity of (PF)) 11:05: Push, [place] injection 22 Q6HPRN, Medical 25 mcg Starting Branch on Wed10/14/22 at 0605, Until Discontinu ed, Routine, Pain (scale 4-6) FENTanyl PF 2022- No 12.5ug 12.5 mcg, Univers (SUBLIMAZE 5-17 05-17 Slow IV ity o f (PF)) 08:07: 11:05 Push, [place] injection 00 :38 Q6HPRN, Medical 12.5 mcg [...] al VIAL-MATE dose, On Branch IV [facility] piggyback 10/12/22 at 1600, Administer over 90 Minutes, 250 mL
Reas on for Anti-Infec tive: Documented Infection< br>Documen swathi Infection Site: Blood<br&g t;Duration of Therapy: 7 days methocarbam 2022-0 Yes 750mg 750 mg, Un arnie oL 5-15 Oral, ity of (ROBAXIN) 13:06: TIDPRN, [place] tablet 750 58 Starting Medic al mg on [facility] 10/12/22 at 0806, Until Discontinu ed, Routine, Muscle Spasms atorvastati 0 Yes 40mg 40 mg, Univ ers n (LIPITOR) 5-15 Oral, QHS, it y of tablet 40 02:00: First dose [place] mg 00 on Pending Sale To [facility] 10/11/22 at Branch 2100, Until Discontinu ed, Routine docusate 0 Yes 100mg 100 mg, Unive rs (COLACE) 5-15 Oral, BID, ity o f capsule 100 01:30: First dose [place] mg 00 on Pending Sale To [facility] 10/11/22 at Branch 2030, Until Discontinu ed, Routine aspirin EC 0 Yes 81mg 81 mg, Unive rs tablet 81 5-14 Oral, ity of mg 14:00: DAILY, [place] 00 First dose Medical on [facility] 10/11/22 at 0900, Until Discontinu ed, Routine pantoprazol 0 Yes 40mg 40 mg, Univ ers e 5-14 Oral, ity of (PROTONIX) 14:00: DAILY, [place] EC tablet 00 First dose Medi yahaira 40 mg on [facility] 10/11/22 at 0900, Until Discontinu ed, Routine citalopram 0 Yes 20mg 20 mg, Unive rs (CELEXA) 5-14 Oral, ity of tablet 20 14:00: DAILY, [place] mg 00 First dose Medical on [facility] 10/11/22 at 0900, Until Discontinu ed, Routine [...] (Same as: l oral 14:00: Adalat CC, [place] tablet, 00 Procardia extended XL) Give release on empty stomach. Take 1 hour before or 2 hours after meal; "Avoid grapefruit and grapefruit juice". Do not crush Epogen No Notes: Memoria (ESRD) 7-20 Same as: l 14:00: Retacrit) [place] 00 epoetin shannon-epbx 91970 unit/1 ml VL. For dialysis use only. WASTE: F/P - Red; E Red MEDICATION WASTE Product Size: 87514 unit Product Wasted: ___ unit aspirin No Notes: Do Memor ia 7-20 not crush l 14:00: or chew. [place] 00 (Same As: Ecotrin) Procardia No Notes: Memori a XL 30 mg 7-20 (Same as: l oral 14:00: Adalat CC, [place] tablet, 00 Procardia extended XL) Give release on empty stomach. Take 1 hour before or 2 hours after meal; "Avoid grapefruit and grapefruit juice". Do not crush Epogen No Notes: Memoria (ESRD) 7-20 Same as: l 14:00: Retacrit) [place] 00 epoetin shannon-epbx 98746 unit/1 ml VL. For dialysis use only. WASTE: F/P - Red; E Red MEDICATION WASTE Product Size: 21666 unit Product Wasted: ___ unit aspirin No Notes: Do Memor ia 7-20 not crush l 14:00: or chew. [place] 00 (Same As: Ecotrin) Procardia No Notes: Memori a XL 30 mg 7-20 (Same as: l oral 14:00: Adalat CC, [place] tablet, 00 Procardia extended XL) Give release on empty stomach. Take 1 hour before or 2 hours after meal; "Avoid grapefruit and grapefruit juice". Do not crush Epogen No Notes: Memoria (ESRD) 7-20 Same as: l 14:00: Retacrit) [place] 00 epoetin shannon-epbx 66091 unit/1 ml VL. For dialysis use only. WASTE: F/P - Red; E Red MEDICATION WASTE Product Size: 14929 unit Product Wasted: ___ unit aspirin No Notes: Do Memor ia 7-20 not crush l 14:00: or chew. [place] 00 (Same As: Ecotrin) Procardia No Notes: Memori a XL 30 mg 7-20 (Same as: l oral 14:00: Adalat CC, [place] tablet, 00 Procardia extended XL) Give release on empty stomach. Take 1 hour before or 2 hours after meal; "Avoid grapefruit and grapefruit juice". Do not crush Epogen No Notes: Memoria (ESRD) 7-20 Same as: l 14:00: Retacrit) [place] 00 epoetin shannon-epbx 99378 unit/1 ml VL. For dialysis use only. WASTE: F/P - Red; E Red MEDICATION WASTE Product Size: 49563 unit Product Wasted: ___ unit aspirin No Notes: Do Memor ia 7-20 not crush l 14:00: or chew. [place] (Same As: Ecotrin) Procardia No Notes: Memori a XL 30 mg 7-20 (Same as: l oral 14:00: Adalat CC, [place] tablet, 00 Procardia extended XL) Give release on empty stomach. Take 1 hour before or 2 hours after meal; "Avoid grapefruit and grapefruit juice". Do not crush Epogen No Notes: Memoria (ESRD) 7-20 Same as: l 14:00: Retacrit) [place] 00 epoetin shannon-epbx 13235 unit/1 ml VL. For dialysis use only. WASTE: F/P - Red; E Red MEDICATION WASTE Product Size: 46630 unit Product Wasted: ___ unit aspirin No Notes: Do Memor ia 7-20 not crush l 14:00: or chew. [place] (Same As: Ecotrin) Procardia No Notes: Memori a XL 30 mg 7-20 (Same as: l oral 14:00: Adalat CC, [place] tablet, 00 Procardia extended XL) Give release on empty stomach. Take 1 hour before or 2 hours after meal; "Avoid grapefruit and grapefruit juice". Do not crush Epogen No Notes: Memoria (ESRD) 7-20 Same as: l 14:00: Retacrit) [place] 00 epoetin shannon-epbx 96269 unit/1 ml VL. For dialysis use only. WASTE: F/P - Red; E Red MEDICATION WASTE Product Size: 99120 unit Product Wasted: ___ unit aspirin No Notes: Do Memor ia 7-20 not crush l 14:00: or chew. [place] (Same As: Ecotrin) Procardia No Notes: Memori a XL 30 mg 7-20 (Same as: l oral 14:00: Adalat CC, [place] tablet, 00 Procardia extended XL) Give release on empty stomach. Take 1 hour before or 2 hours after meal; "Avoid grapefruit and grapefruit juice". Do not crush Epogen No Notes: Memoria (ESRD) 7-20 Same as: l 14:00: Retacrit) [place] 00 epoetin shannon-epbx 76459 unit/1 ml VL. For dialysis use only. WASTE: F/P - Red; E Red MEDICATION WASTE Product Size: 11758 unit Product Wasted: ___ unit Lipitor No Notes: [facility]oria 7-20 (Same as: l 02:00: Lipitor) [place] 00 Lipitor No Notes: [facility] 7-20 (Same as: l 02:00: Lipitor) [place] 00 Lipitor No Notes: [facility] 7-20 (Same as: l 02:00: Lipitor) [place] 00 Lipitor No Notes: [facility] 7-20 (Same as: l 02:00: Lipitor) [place] 00 Lipitor No Notes: Memoria 7-20 (Same as: l 02:00: Lipitor) [place] 00 Lipitor No Notes: Memoria 7-20 (Same as: l 02:00: Lipitor) [place] 00 Lipitor No Notes: Memoria 7-20 (Same as: l 02:00: Lipitor) [place] 00 cefdinir No Notes: Memoria 300 mg [...] l capsule 22:00: Omnicef) Thomas n dexamethaso 2021-0 Yes 6 mg = 1 Me moria ne 6 mg 7-19 tab, PO, l oral tablet 21:19: Daily, X 3 [place] day, # 3 tab, 0 Refill(s), Pharmacy: [facility] #[id number], 177.8, cm, 12/14/21 22:03:00 CDT, Height, 95.2, kg, 12/14/21 22:03:00 CDT, Weight dexamethaso 2021-0 Yes 6 mg = 1 Me moria ne 6 mg 7-19 tab, PO, l oral tablet 21:19: Daily, X 3 [place] 00 day, # 3 tab, 0 Refill(s), Pharmacy: [facility] #[id number], 177.8, cm, 12/14/21 22:03:00 CDT, Height, 95.2, kg, 12/14/21 22:03:00 CDT, Weight dexamethaso 2021-0 Yes 6 mg = 1 Me moria ne 6 mg 7-19 tab, PO, l oral tablet 21:19: Daily, X 3 [place] 00 day, # 3 tab, 0 Refill(s), Pharmacy: [facility] #[id number], 177.8, cm, 12/14/21 22:03:00 CDT, Height, 95.2, kg, 12/14/21 22:03:00 CDT, Weight dexamethaso 2021-0 Yes 6 mg = 1 Me moria ne 6 mg 7-19 tab, PO, l oral tablet 21:19: Daily, X 3 [place] day, # 3 tab, 0 Refill(s), Pharmacy: [facility] #[id number], 177.8, cm, 12/14/21 22:03:00 CDT, Height, 95.2, kg, 12/14/21 22:03:00 CDT, Weight dexamethaso 2022-0 Yes 6 mg = 1 Me moria ne 6 mg 7-19 tab, PO, l oral tablet 21:19: Daily, X 3 [place] 00 day, # 3 tab, 0 Refill(s), Pharmacy: [facility] #[id number], 177.8, cm, 12/14/21 22:03:00 CDT, Height, 95.2, kg, 12/14/21 22:03:00 CDT, Weight dexamethaso 2022-0 Yes 6 mg = 1 Me moria ne 6 mg 7-19 tab, PO, l oral tablet 21:19: Daily, X 3 [place] day, # 3 tab, 0 Refill(s), Pharmacy: [facility] #[id number], 177.8, cm, 12/14/21 22:03:00 CDT, Height, 95.2, kg, 12/14/21 22:03:00 CDT, Weight dexamethaso 2-0 Yes 6 mg = 1 Me moria ne 6 mg 7-19 tab, PO, l oral tablet 21:19: Daily, X 3 [place] day, # 3 tab, 0 Refill(s), Pharmacy: [facility] #[id number], 177.8, cm, 12/14/21 22:03:00 CDT, Height, [...] extended 00 tab, 0 release Refill(s) pregabalin 2-0 Yes 50 mg = 1 Me moria 50 mg oral 7-19 cap, PO, l capsule 20:30: BID, # 60 Lauryn nn 00 cap, 1 Refill(s) pregabalin 2022-0 Yes 50 mg = 1 Me moria 50 mg oral 7-19 cap, PO, l capsule 20:30: BID, # 60 Lauryn nn 00 cap, 1 Refill(s) pregabalin 2-0 Yes 50 mg = 1 Me moria 50 mg oral 7-19 cap, PO, l capsule 20:30: BID, # 60 Lauryn nn 00 cap, 1 Refill(s) pregabalin 2-0 Yes 50 mg = 1 Me moria [...] nn 00 cap, 1 Refill(s) melatonin 3 2-0 Yes 3 mg = 1 Me moria mg oral 7-19 tab, PO, l tablet 20:29: Bedtime, [place] 00 PRN for insomnia, # 14 tab, 0 Refill(s) melatonin Yes 3 mg = 1 Me moria mg oral 7-19 tab, PO, l tablet 20:29: Bedtime, [place] 00 PRN for insomnia, # 14 tab, [...] 7-19 tab, PO, l tablet 20:29: Bedtime, [place] 00 PRN for insomnia, # 14 tab, 0 Refill(s) melatonin Yes 3 mg = 1 Me moria mg oral 7-19 tab, PO, l tablet 20:29: Bedtime, [place] 00 PRN for insomnia, # 14 tab, [...] [place] 00 tab, 0 Refill(s) bisacodyl 5 0 Yes 10 mg = 2 M emoria mg oral 7-19 tab, PO, l enteric 20:27: Daily, PRN Herm silas coated 00 Constipati tablet on, # 20 tab, 0 Refill(s) carvedilol Yes 12.5 mg = Me moria 12.5 mg 7-19 1 tab, PO, l oral tablet 20:27: Q12H, # 60 [place] 00 tab, 0 Refill(s) bisacodyl 5 0 Yes 10 mg = 2 M emoria mg oral 7-19 tab, PO, l enteric 20:27: Daily, PRN Herm silas coated 00 Constipati tablet on, # 20 tab, 0 Refill(s) carvedilol 0 Yes 12.5 mg = Me moria 12.5 mg 7-19 1 tab, PO, l oral tablet 20:27: Q12H, # 60 [place] 00 tab, 0 Refill(s) bisacodyl 5 0 [...] l oral tablet 20:27: Q12H, # 60 [place] 00 tab, 0 Refill(s) bisacodyl 5 Yes [...] l oral tablet 20:27: Q12H, # 60 [place] 00 tab, 0 Refill(s) aspirin 81 0 Yes 81 mg = 1 Me moria mg tablet, 7-19 tab, PO, l enteric 20:26: Daily, # Thomas n coated 00 90 tab, 3 Refill(s) aspirin 81 2021-0 Yes 81 mg = 1 Me moria mg tablet, 7-19 tab, PO, l enteric 20:26: Daily, # Thomas n coated 00 90 tab, 3 Refill(s) aspirin 81 202-0 Yes 81 mg = 1 Me moria [...] a 7- Same as: l 13:00: Renvela [place] sevelamer No Notes: Memori a - Same as: l 13:00: Renvela [place] sevelamer No Notes: Memori a - Same as: l 13:00: Renvela [place] sevelamer No Notes: Memori a 7- Same as: l 13:00: Renvela [place] sevelamer No Notes: Memori a - Same as: l 13:00: Renvela [place] sevelamer No Notes: Memori a - Same as: l 13:00: Renvela [place] sevelamer No Notes: Memori a - Same as: l 13:00: Renvela [place] albumin Yes Notes: Lot Heath bobo human 25% 12-16 #: l intravenous 02:33: [place] solution 00 ___ Mfg: (Same as: Plasbumin- 25) "blood product derivative " WASTE: F/P - Red; E -Red MEDICATION WASTE Product Size: 25 gm Product Wasted: ___ gm albumin Yes Notes: Lot Heath obbo human 25% 12-16 #: l intravenous 02:33: [place] solution ___ Mfg: (Same as: Plasbumin- 25) "blood product derivative " WASTE: F/P - Red; E -Red MEDICATION WASTE Product Size: 25 gm Product Wasted: ___ gm albumin Yes Notes: Na mercado 25% 12-16 #: l intravenous 02:33: [place] solution ___ Mfg: (Same as: Plasbumin- 25) "blood product derivative " WASTE: F/P - Red; E -Red MEDICATION WASTE Product Size: 25 gm Product Wasted: ___ gm albumin Yes Notes: Na mercado 25% 12-16 #: l intravenous 02:33: [place] solution __ Mfg: (Same as: Plasbumin- 25) "blood product derivative " WASTE: F/P - Red; E -Red MEDICATION WASTE Product Size: 25 gm Product Wasted: ___ gm albumin Yes Notes: Na mercado 25% 12-16 #: l intravenous 02:33: [place] solution __ Mfg: (Same as: Plasbumin- 25) "blood product derivative " WASTE: F/P - Red; E -Red MEDICATION WASTE Product Size: 25 gm Product Wasted: ___ gm albumin Yes Notes: Na mercado 25% 12-16 #: l intravenous 02:33: [place] solution ___ Mfg: (Same as: Plasbumin- 25) "blood product derivative " WASTE: F/P - Red; E -Red MEDICATION WASTE Product Size: 25 gm Product Wasted: ___ gm albumin Yes Notes: Lot Heath bobo human 25% 7-19 #: l intravenous 02:33: [place] solution 00 ___ Mfg: (Same as: Plasbumin- [...] ne 7-18 Give with l 14:00: food. [place] 00 dexamethaso No Notes: Heath bobo ne 7-18 Give with l 14:00: food. [place] 00 dexamethaso No Notes: Heath bobo ne 7-18 Give with l 14:00: food. [place] 00 dexamethaso No Notes: Heath bobo ne 7-18 Give with l 14:00: food. dexamethaso No Notes: Heath bobo ne 7-18 Give with l 14:00: food. [place] 00 dexamethaso No Notes: Heath bobo ne 7-18 Give with l 14:00: food. [place] 00 dexamethaso No Notes: Heath bobo ne 7-18 Give with l 14:00: food. [place] 00 albuterol-i No Notes: Heath bobo pratropium 7-18 Same as: l 13:00: Combivent [place] 00 Respimat WASTE: Aerosol - Return to Pharmacy albuterol-i No Notes: Heath bobo pratropium 7-18 Same as: l 13:00: Combivent [place] 00 Respimat WASTE: Aerosol - Return to Pharmacy albuterol-i No Notes: Heath bobo pratropium 7-18 Same as: l 13:00: Combivent [place] 00 Respimat WASTE: Aerosol - Return to Pharmacy albuterol-i 0 No Notes: Heath bobo pratropium 7-18 Same as: l 13:00: Combivent [place] 00 Respimat WASTE: Aerosol - Return to Pharmacy albuterol-i 0 No Notes: Heath bobo pratropium 7-18 Same as: l 13:00: Combivent [place] 00 Respimat WASTE: Aerosol - Return to Pharmacy albuterol-i 0 No Notes: Heath bobo pratropium 7-18 Same as: l 13:00: Combivent [place] 00 Respimat WASTE: Aerosol - Return to Pharmacy albuterol-i 0 No Notes: Heath bobo pratropium 7-18 Same as: l 13:00: Combivent [place] 00 Respimat WASTE: Aerosol - Return to Pharmacy heparin 2022-0 No 5,000 [facility] 7-18 unit, l 05:00: Route: [place] 00 SUB-Q, Q8H, Dosing Weight 95.455, kg, Start date: 12/15/21 0:00:00 CDT, Stop date: 01/13/22 16:00:00 CDT heparin 2022-0 No 5,000 [facility] 7-18 unit, l 05:00: Route: [place] 00 SUB-Q, Q8H, Dosing Weight 95.455, kg, Start date: 12/15/21 0:00:00 CDT, Stop date: 01/13/22 16:00:00 CDT heparin 2-0 No 5,000 [facility] 7-18 unit, l 05:00: Route: [place] 00 SUB-Q, Q8H, Dosing Weight 95.455, kg, Start date: 12/15/21 0:00:00 CDT, Stop date: 01/13/22 16:00:00 CDT heparin 2-0 No 5,000 [facility] 7-18 unit, l 05:00: Route: [place] 00 SUB-Q, Q8H, Dosing Weight 95.455, kg, Start date: 12/15/21 0:00:00 CDT, Stop date: 01/13/22 16:00:00 CDT heparin 2-0 No 5,000 [facility] 7-18 unit, l 05:00: Route: [place] 00 SUB-Q, Q8H, Dosing Weight 95.455, kg, Start date: 12/15/21 0:00:00 CDT, Stop date: 01/13/22 16:00:00 CDT heparin 2022-0 No 5,000 [facility] 7-18 unit, l 05:00: Route: [place] 00 SUB-Q, Q8H, Dosing Weight 95.455, kg, Start date: 12/15/21 0:00:00 CDT, Stop date: 01/13/22 16:00:00 CDT heparin 2022-0 No 5,000 [facility] 7-18 unit, l 05:00: Route: [place] 00 SUB-Q, Q8H, Dosing Weight 95.455, kg, Start date: 12/15/21 0:00:00 CDT, Stop date: 01/13/22 16:00:00 CDT heparin No Notes: [facility] 7-18 porcine l 02:00: heparin [place] 00 heparin No Notes: [facility] 7-18 porcine l 02:00: heparin [place] heparin No Notes: [facility] 7-18 porcine l 02:00: heparin [place] 00 heparin No Notes: [facility] 7-18 porcine l 02:00: heparin [place] 00 heparin No Notes: [facility] 7-18 porcine l 02:00: heparin [place] 00 heparin No Notes: [facility] 7-18 porcine l 02:00: heparin [place] 00 heparin No Notes: [facility] 7-18 porcine l 02:00: heparin [place] 00 albuterol-i No Notes: Heath bobo pratropium [...] inhalation 00 solution albuterol-i No Notes: Heath boob pratropium 7-18 (Same as: l 2.5-0.5 mg [...] 1000 mg Product Wasted: ___ mg azithromyci 2021-0 No Notes: Heath bobo n + Sodium [...] Rate: 999 l Water IV 23:57: ml/hr, [place] 00 Infuse over: 0.1 hr, Route: IV, [...] 999 l Water IV 23:57: ml/hr, [place] Infuse over: 0.1 hr, Route: IV, Total Volume: 125, Start date: 12/14/21 18:57:00 CDT, Duration: 30 day, Stop date: 01/13/22 18:56:00 CDT, PRN Blood Glucose Results, 0 Dextrose 2-0 No 125 mL, [facility] a 10% in 12-14 Rate: 999 l Water IV 23:57: ml/hr, [place] 00 Infuse over: 0.1 hr, Route: IV, Total Volume: 125, Start date: 12/14/21 18:57:00 CDT, Duration: 30 day, Stop date: 01/13/22 18:56:00 CDT, PRN Blood Glucose Results, 0 Dextrose 2022-0 No 125 mL, [facility] a 10% in 12-14 Rate: 999 l Water IV 23:57: ml/hr, [place] 00 Infuse over: 0.1 hr, Route: IV, [...] Rate: 999 l Water IV 23:53: ml/hr, [place] 00 Infuse over: 0.3 hr, Route: IV, Total Volume: 250, Start date: 12/14/21 18:53:00 CDT, Duration: 30 day, Stop date: 01/13/22 18:52:00 CDT, PRN Blood Glucose Results, 0 Dextrose 2-0 No 250 mL, [facility] a 10% in 12-14 Rate: 999 l Water IV 23:53: ml/hr, [place] 00 Infuse over: 0.3 hr, Route: IV, Total Volume: 250, Start date: 12/14/21 18:53:00 CDT, Duration: 30 day, Stop date: 01/13/22 18:52:00 CDT, PRN Blood Glucose Results, 0 Dextrose 2022-0 No 250 mL, [facility] a 10% in 12-14 Rate: 999 l Water IV 23:53: ml/hr, [place] 00 Infuse over: 0.3 hr, Route: IV, [...] Pharmacy 12-14 Vancomycin l Dosing 23:36: Pharmacy [place] Consult 47 Dosing Protocol PHARMAC Y USE [...] Pharmacy 12-14 Vancomycin l Dosing 23:36: Pharmacy [place] Consult 47 Dosing Protocol PHARMAC Y USE [...] Pharmacy 12-14 Vancomycin l Dosing 23:36: Pharmacy [place] Consult 47 Dosing Protocol PHARMAC Y USE ONLY Note: This is not a medication order. This is a consultati on order. simethicone No Notes: Heath bobo -17 (Same as: l 23:30: Mylicon) ondansetron No Notes: Heath bobo 7-17 (Same as: l 23:30: Zofran) MEDICATION WASTE Product Size: 4 mg Product Wasted: ___ mg dextrometho No Notes: Heath bobo rphan-guaiF - (dextromet l ENesin 10 23:30: horphan-gu He [...] 1.4% 12-14 Chlorasept l spray 23:30: ic [place] (Same as: Chlorasept ic, Sore Throat [place]) WASTE: F/P - Black; E - Municipal Trash Bin Colace 100 No Notes: [facility] mg oral 12-14 (Same as: l capsule 23:30: Colace) (Do Not Crush) hydrALAZINE No Notes: Heath bobo 7-17 (Same as: l 23:30: Apresoline ) Push over 5 minutes melatonin 3 No Notes: Heath bobo mg oral 7-17 (Same as: l tablet 23:30: Melatonin) [place] nn 00 Pepcid 20 No Notes: [facility] a mg oral 7-17 (Same as: l tablet 23:30: Pepcid) [place] 5/325 No Notes: Heath bobo oral tablet 7-17 (Same as: l 23:30: [place] 325/5) Do not exceed 4gm/day of acetaminop [...] as: l 2.5-0.5 mg 23:30: Duoneb) silas solution Chlorasepti No Notes: Heath bobo c 1.4% 7-17 Chlorasept l spray 23:30: ic [place] (Same as: Chlorasept ic, Sore Throat [place]) WASTE: F/P - Black; E - Municipal [...] 7-17 (Same as: l tablet 23:30: Pepcid) [place] 5/325 No Notes: Heath bobo oral tablet 7-17 (Same as: l 23:30: [place] 325/5) Do not exceed 4gm/day of acetaminop [...] 1.4% 7-17 Chlorasept l spray 23:30: ic [place] (Same as: Chlorasept ic, Sore Throat [place]) WASTE: F/P - Black; E - Municipal Trash Bin Colace 100 No Notes: [facility] mg oral 7-17 (Same as: l capsule 23:30: Colace) [place] (Do Not Crush) hydrALAZINE No Notes: Heath bobo 7-17 (Same as: l 23:30: Apresoline ) Push over 5 minutes melatonin 3 No Notes: Heath bobo mg oral 7-17 (Same as: l tablet 23:30: Melatonin) [place] nn 00 Pepcid 20 No Notes: [facility] a mg oral 7-17 (Same as: l tablet 23:30: Pepcid) [place] 5/325 No Notes: Heath bobo oral tablet 7-17 (Same as: l 23:30: [place] 325/5) Do not exceed 4gm/day of acetaminop [...] 1.4% 7-17 Chlorasept l spray 23:30: ic [place] (Same as: Chlorasept ic, Sore Throat [place]) WASTE: F/P - Black; E - Municipal [...] 7-17 (Same as: l tablet 23:30: Pepcid) [place] 5/325 No Notes: Heath bobo oral tablet 7-17 (Same as: l 23:30: [place] 325/5) Do not exceed 4gm/day of acetaminop [...] 1.4% 7-17 Chlorasept l spray 23:30: ic [place] (Same as: Chlorasept ic, Sore Throat [place]) WASTE: F/P - Black; E - Municipal [...] 1.4% 7-17 Chlorasept l spray 23:30: ic [place] (Same as: Chlorasept ic, Sore Throat [place]) WASTE: F/P - Black; E - Municipal [...] 7-17 (Same as: l tablet 23:30: Pepcid) [place] 5/325 No Notes: Heath bobo oral tablet 7-17 (Same as: l 23:30: [place] 325/5) Do not exceed 4gm/day of acetaminop hen. morphine No 1 mg, 0.5 Heath bobo Sulfate 7-17 mL, Route: l 23:30: IVP, Drug form: SOLN, Q4H, Dosing Weight 95.455, kg, PRN Pain Score 7-10, Start date: 12/14/21 18:30:00 CDT, Duration: 30 day, Stop date: 01/13/22 18:29:00 CDT, 0 [place] /325 No Notes: Heath bobo oral tablet 7-17 (Same as: l 23:30: [place] 325/5) Do not exceed 4gm/day of acetaminop [...] mg dextrometho No Notes: Heath bobo rphan-guaiF -17 (dextromet l ENesin 10 23:30: horphan-gu He [...] not exceed l 23:30: 4 gm/day. [place] (Same as: Tylenol) albuterol-i No Notes: Heath bobo pratropium 7-17 (Same as: l 2.5-0.5 mg 23:30: Duoneb) Herm silas inhalation solution Chlorasepti No Notes: Heath bobo c 1.4% 7-17 Chlorasept l spray 23:30: ic [place] (Same as: Chlorasept ic, Sore Throat [place]) WASTE: F/P - Black; E - Municipal [...] 7-17 (Same as: l tablet 23:30: Pepcid) [place] 5/325 No Notes: Heath bobo oral tablet 7-17 (Same as: l 23:30: [place] 00 325/5) Do not exceed 4gm/day [...] 7-17 Route: l (D50W) 23:29: IVP, [place] Dosing Weight 95.455, kg, PRN, PRN Blood [...] lispro 7-17 (Same as: l 23:29: Humalog) [place] 00 Roll in palms of hands gently; [...] 7-17 Route: IM, l 23:29: Drug form: [place] 00 PDR/INJ, PRN, Dosing Weight 95.455, kg, [...] Syringe 7-17 Route: l (D50W) 23:29: IVP, [place] Dosing Weight 95.455, kg, PRN, PRN Blood Glucose Results, Start date: 12/14/21 18:29:00 CDT, Duration: 30 day, Stop date: 01/13/22 18:28:00 CDT glucagon 2022-0 No 1 mg, [facility] 7-17 Route: IM, l 23:29: Drug form: [place] 00 PDR/INJ, PRN, Dosing Weight 95.455, kg, PRN Blood Glucose Results, Start date: 12/14/21 18:29:00 CDT, Duration: 30 day, Stop date: 01/13/22 18:28:00 CDT, 0 insulin 202-0 No Notes: [facility] lispro 7-17 (Same as: [...] 7-17 Route: IM, l 23:29: Drug form: [place] 00 PDR/INJ, PRN, Dosing Weight 95.455, kg, [...] lispro 7-17 (Same as: l 23:29: Humalog) [place] 00 Roll in palms of hands gently; Do not shake vigorously . WASTE: F/P - Black; E - Municipal Trash Bin Stable for 28 days at room temperatur e. Expires in days from ____Date Dextrose 2-0 No 25 mL, [facility] 50% Syringe 7-17 Route: l (D50W) 23:29: IVP, [place] 00 Dosing Weight 95.455, kg, PRN, PRN [...] Dextrose No 25 mL, [facility] 50% Syringe 12-14 Route: l (D50W) 23:29: IVP, [place] Dosing Weight 95.455, kg, PRN, PRN Blood Glucose Results, Start date: 12/14/21 18:29:00 CDT, Duration: 30 day, Stop date: 01/13/22 18:28:00 CDT glucagon No 1 mg, [facility] 7-17 Route: IM, l 23:29: Drug form: [place] PDR/INJ, PRN, Dosing Weight 95.455, kg, PRN [...] Perles 7-17 (Same As: l 23:28: Tessalon [place] Perles) "Do Not Crush" zinc No Notes: [facility] sulfate 7-17 (Zinc l 23:28: sulfate [place] capsule) - 220 mg Zinc sulfate = 50 mg elemental zinc Same as Zinc Sulfate ascorbic No Notes: [facility] acid 7-17 (Same as: l 23:28: Vitamin C) No Notes: [facility] Perles 7-17 (Same As: l 23:28: Tessalon [place] 00 Perles) "Do Not Crush" zinc No Notes: [facility] sulfate 7-17 (Zinc l 23:28: sulfate [place] capsule) - 220 mg Zinc sulfate = [...] [facility] 7-17 Take with l 22:40: food. [place] 00 Rocephin + No Notes: [facility] ia [...] Rate: 999 l Water IV 21:08: ml/hr, [place] 00 Infuse over: 0.3 hr, Route: IV, [...] Rate: 999 l Water IV 21:08: ml/hr, [place] 00 Infuse over: 0.3 hr, Route: IV, [...] Rate: 999 l Water IV 21:08: ml/hr, [place] Infuse over: 0.3 hr, Route: IV, Total Volume: 250, Start date: 12/14/21 16:08:00 CDT, Stop date: 12/14/21 16:08:00 CDT, 0 Dextrose 2022-0 No 250 mL, [facility] a 10% in 12-14 Rate: 999 l Water IV 21:08: ml/hr, [place] 00 Infuse over: 0.3 hr, Route: IV, Total Volume: 250, Start date: 12/14/21 16:08:00 CDT, Stop date: 12/14/21 16:08:00 CDT, 0 Dextrose 2022-0 No 250 mL, [facility] a 10% in 12-14 Rate: 999 l Water IV 21:08: ml/hr, [place] 00 Infuse over: 0.3 hr, Route: IV, [...] Heath bobo 7-17 Route: l 20:41: IVP, [place] Dosing Weight 95.455, kg, ONCE, STAT, Start date: 12/14/21 15:41:00 CDT, Stop date: 12/14/21 15:41:00 CDT, 25 ml = 12.5 gm d50 syringe 2022-0 No 25 mL, Heath bobo 7-17 Route: l 20:41: IVP, [place] 00 Dosing Weight 95.455, kg, ONCE, STAT, Start date: 12/14/21 15:41:00 CDT, Stop date: 12/14/21 15:41:00 CDT, 25 ml = 12.5 gm d50 syringe 2022-0 No 25 mL, Heath bobo 7 Route: l 20:41: IVP, [place] 00 Dosing Weight 95.455, kg, ONCE, STAT, Start date: 12/14/21 15:41:00 CDT, Stop date: 12/14/21 15:41:00 CDT, 25 ml = 12.5 gm d50 syringe 2022-0 No 25 mL, Heath boob 7-17 Route: l 20:41: IVP, [place] 00 Dosing Weight 95.455, kg, ONCE, STAT, Start date: 12/14/21 15:41:00 CDT, Stop date: 12/14/21 15:41:00 CDT, 25 ml = 12.5 gm d50 syringe 2022-0 No 25 mL, Heath bobo 12-14 Route: l 20:41: IVP, [place] 00 Dosing Weight 95.455, kg, ONCE, STAT, Start date: 12/14/21 15:41:00 CDT, Stop date: 12/14/21 15:41:00 CDT, 25 ml = 12.5 gm d50 syringe 2022-0 No 25 mL, Heath bobo 12-14 Route: l 20:41: IVP, [place] 00 Dosing Weight 95.455, kg, ONCE, STAT, Start date: 12/14/21 15:41:00 CDT, Stop date: 12/14/21 15:41:00 CDT, 25 ml = 12.5 gm Sodium 2022-0 No 250 mL, [facility] Chloride 12-04 Rate: To l 0.9% 01:29: prime line [place] (titrate) 00 and flush 250 mL remaining [...] Rate: To l 0.9% 01:29: prime line [place] (titrate) 00 and flush 250 mL remaining [...] tab, PO, l tablet 19:37: Daily, # [place] 00 30 tab, 0 Refill(s), other Plavix 75 2022-0 Yes 75 mg = 1 [facility] mg oral 6-28 tab, PO, l tablet 19:37: Daily, # [place] 00 30 tab, 0 Refill(s), other Plavix 75 2022-0 Yes 75 mg = 1 [facility] mg oral 6-28 tab, PO, l tablet 19:37: Daily, # [place] 00 30 tab, 0 Refill(s), other Plavix 75 2022-0 Yes 75 mg = 1 [facility] mg oral 6-28 tab, PO, l tablet 19:37: Daily, # [place] 00 30 tab, 0 Refill(s), other Plavix 75 2022-0 Yes 75 mg = 1 [facility] mg oral 6-28 tab, PO, l tablet 19:37: Daily, # [place] 00 30 tab, 0 Refill(s), other Plavix 75 2022-0 Yes 75 mg = 1 [facility] mg oral 6-28 tab, PO, l tablet 19:37: Daily, # [place] 00 30 tab, 0 Refill(s), other Protonix 2022-0 No Notes: For Mem [facility] 6-28 IV push l 14:00: reconstitu [place] 00 te with 10 ml 0.9% sodium chloride and push over 2 minutes. (Same as: Protonix) atorvastati No Notes: Heath bobo n 6-28 (Same as: l 14:00: Lipitor) [place] citalopram No Notes: [facility] 6-28 (Same As: l 14:00: CeleXA) [place] Protonix No Notes: For Mem [facility] 6-28 IV push l 14:00: reconstitu [place] 00 te with 10 ml 0.9% sodium chloride and push over 2 minutes. (Same as: Protonix) atorvastati No Notes: Heath bobo n 6-28 (Same as: l 14:00: Lipitor) [place] citalopram No Notes: [facility] 6-28 (Same As: l 14:00: CeleXA) [place] 00 Protonix No Notes: For Mem [facility] 6-28 IV push l 14:00: reconstitu [place] 00 te with 10 ml 0.9% sodium chloride and push over 2 minutes. (Same as: Protonix) atorvastati No Notes: Heath bobo n 6-28 (Same as: l 14:00: Lipitor) [place] citalopram No Notes: [facility] 6-28 (Same As: l 14:00: CeleXA) [place] Protonix No Notes: For Mem o[facility] 6-28 IV push l 14:00: reconstitu [place] 00 te with 10 ml 0.9% sodium chloride and push over 2 minutes. (Same as: Protonix) atorvastati No Notes: Heath bobo n 6-28 (Same as: l 14:00: Lipitor) [place] citalopram No Notes: [facility] 6-28 (Same As: l 14:00: CeleXA) [place] 00 Protonix No Notes: For Mem o[facility] 6-28 IV push l 14:00: reconstitu [place] 00 te with 10 ml 0.9% sodium [...] ia 6-28 (Same As: l 14:00: CeleXA) dexamethaso No Notes: Heath bobo ne 6- Concentrat l 06:42: ion: [place] 00 4mg/ml dexamethaso No Notes: Heath bobo ne 6-28 Concentrat l 06:42: ion: [place] 00 4mg/ml dexamethaso No Notes: Heath bobo ne 6-28 Concentrat l 06:42: ion: [place] 00 4mg/ml dexamethaso 0 No Notes: Heath bobo ne 6-28 Concentrat l 06:42: ion: [place] 00 4mg/ml dexamethaso No Notes: Heath bobo ne 6-28 Concentrat l 06:42: ion: [place] 00 4mg/ml dexamethaso 0 No Notes: Heath bobo ne 6-28 Concentrat l 06:42: ion: [place] 00 4mg/ml dexamethaso 2021-0 No Notes: Heath bobo ne - Concentrat l 06:42: ion: [place] 00 4mg/ml D1W 2021-0 No 125 mL, [facility] (bolus) IV 11-25 Rate: 999 l 06:31: ml/hr, [place] 00 Infuse over: 0.1 hr, Route: IVPB, Total Volume: 125, Start date: 11/25/21 1:31:00 CDT, Duration: 30 day, Stop date: 12/25/21 1:30:00 CDT, PRN Blood Glucose Results, 0 0 No 125 mL, [facility] (bolus) IV 11-25 Rate: 999 l 06:31: ml/hr, [place] 00 Infuse over: 0.1 hr, Route: IVPB, Total Volume: 125, Start date: 11/25/21 1:31:00 CDT, Duration: 30 day, Stop date: 12/25/21 1:30:00 CDT, PRN Blood Glucose Results, 0 0 No 125 mL, [facility] (bolus) IV 11-25 Rate: 999 l 06:31: ml/hr, [place] 00 Infuse over: 0.1 hr, Route: IVPB, Total Volume: 125, Start date: 11/25/21 1:31:00 CDT, Duration: 30 day, Stop date: 12/25/21 1:30:00 CDT, PRN Blood Glucose Results, 0 0 No 125 mL, [facility] (bolus) IV 11-25 Rate: 999 l 06:31: ml/hr, [place] 00 Infuse over: 0.1 hr, Route: IVPB, Total Volume: 125, Start date: 11/25/21 1:31:00 CDT, Duration: 30 day, Stop date: 12/25/21 1:30:00 CDT, PRN Blood Glucose Results, 0 2021-0 No 125 mL, [facility] (bolus) IV 11-25 Rate: 999 l 06:31: ml/hr, [place] 00 Infuse over: 0.1 hr, Route: IVPB, [...] IV 11-25 Rate: 999 l 06:23: ml/hr, [place] 00 Infuse over: 0.3 hr, Route: IVPB, Total Volume: 250, Start date: 11/25/21 1:23:00 CDT, Duration: 30 day, Stop date: 12/25/21 1:22:00 CDT, PRN Blood Glucose Results, 0 D1W 2021-0 No 250 mL, [facility] (bolus) IV 11-25 Rate: 999 l 06:23: ml/hr, [place] 00 Infuse over: 0.3 hr, Route: IVPB, Total Volume: 250, Start date: 11/25/21 1:23:00 CDT, Duration: 30 day, Stop date: 12/25/21 1:22:00 CDT, PRN Blood Glucose Results, 0 D1W 2021-0 No 250 mL, [facility] (bolus) IV 11-25 Rate: 999 l 06:23: ml/hr, [place] 00 Infuse over: 0.3 hr, Route: IVPB, Total Volume: 250, Start date: 11/25/21 1:23:00 CDT, Duration: 30 day, Stop date: 12/25/21 1:22:00 CDT, PRN Blood Glucose Results, 0 Dextrose 2021-0 No 25 mL, [facility] 50% Syringe 11-25 Route: l (D50W) 05:55: IVP, [place] 00 Dosing Weight 94.545, kg, PRN, PRN Blood Glucose Results, Start date: 11/25/21 0:55:00 CDT, Duration: 30 day, Stop date: 12/25/21 0:54:00 CDT glucagon 2021-0 No 1 mg, [facility] 6-28 Route: IM, l 05:55: Drug form: [place] 00 PDR/INJ, PRN, Dosing Weight 94.545, kg, [...] 11-25 Route: IM, l 05:55: Drug form: [place] 00 PDR/INJ, PRN, Dosing Weight 94.545, kg, PRN Blood Glucose Results, Start date: 11/25/21 0:55:00 CDT, Duration: 30 day, Stop date: 12/25/21 0:54:00 CDT, 0 insulin 2021-0 No Notes: [facility] lispro 11-25 (Same as: l 05:55: Humalog) [place] 00 Roll in palms of hands gently; [...] 11-25 Route: IM, l 05:55: Drug form: [place] 00 PDR/INJ, PRN, Dosing Weight 94.545, kg, [...] Syringe 11-25 Route: l (D50W) 05:55: IVP, [place] 00 Dosing Weight 94.545, kg, PRN, PRN [...] Syringe 11-25 Route: l (D50W) 05:55: IVP, [place] 00 Dosing Weight 94.545, kg, PRN, PRN Blood Glucose Results, Start date: 11/25/21 0:55:00 CDT, Duration: 30 day, Stop date: 12/25/21 0:54:00 CDT glucagon 2021-0 No 1 mg, [facility] 11-25 Route: IM, l 05:55: Drug form: [place] 00 PDR/INJ, PRN, Dosing Weight 94.545, kg, PRN Blood Glucose Results, Start date: 11/25/21 0:55:00 CDT, Duration: 30 day, Stop date: 12/25/21 0:54:00 CDT, 0 insulin 2021-0 No Notes: [facility] lispro 11-25 (Same as: l 05:55: Humalog) [place] 00 Roll in palms of hands gently; Do not shake vigorously . WASTE: F/P - Black; E - Municipal Trash Bin Stable for 28 days at room temperatur e. Expires in days from ____Date Dextrose 2021-0 No 25 mL, [facility] 50% Syringe 11-25 Route: l (D50W) 05:55: IVP, [place] 00 Dosing Weight 94.545, kg, PRN, PRN Blood Glucose Results, Start date: 11/25/21 0:55:00 CDT, Duration: 30 day, Stop date: 12/25/21 0:54:00 CDT glucagon 2021-0 No 1 mg, [facility] 11-25 Route: IM, l 05:55: Drug form: [place] 00 PDR/INJ, PRN, Dosing Weight 94.545, kg, [...] Syringe 11-25 Route: l (D50W) 05:55: IVP, [place] 00 Dosing Weight 94.545, kg, PRN, PRN [...] 11-25 not exceed l 05:54: 4 gm/day. [place] 00 (Same as: Tylenol) [place] No Notes: [facility] Perles 11-25 (Same As: l 05:54: [place]on [place]) "Do Not Crush" simethicone No Notes: Heath bobo 11-25 (Same as: l 05:54: Mylicon) senna 8.6 No Notes: Memori a mg oral 6-28 (Same as: l tablet 05:54: Senokot) [place] 00 Colace 50 No Notes: [facility] a mg oral 6-28 (Same as: l capsule 05:54: Colace) [place] 00 Zofran No Notes: [facility] 6-28 (Same as: l 05:54: Zofran) MEDICATION WASTE Product Size: 4 mg Product Wasted: ___ mg Tylenol No Notes: Do Memor ia 6-28 not exceed l 05:54: 4 gm/day. [place] 00 (Same as: Tylenol) salon No Notes: [...] 6-28 (Same as: l capsule 05:54: Colace) [place] 00 Zofran No Notes: [facility] 6-28 (Same [...] 6-28 not exceed l 05:54: 4 gm/day. [place] 00 (Same as: Tylenol) [place] No Notes: [...] 4 gm/day. [place] 00 (Same as: Tylenol) sal2021 No Notes: [...] l 05:54: 4 gm/day. (Same as: Tylenol) No Notes: [facility] Perles [...] oral 6-28 Refill(s) l tablet 05:53: pantoprazol 2022-0 Yes 0 Memori a e 40 mg [...] 6-28 Refill(s) l oral tablet 05:53: [place] glipiZIDE 2021-0 Yes 0 [facility] 10 mg [...] KwikPen 100 6-28 Refill(s) l units/mL 05:53: [facility] s solution Dialyvite 0 Yes 0 Memoria [...] 6-28 Refill(s) l oral tablet 05:53: [place] Basaglar 2021-0 Yes 0 [facility] KwikPen 100 6-28 Refill(s) l units/mL 05:53: [facility] s solution Dialyvite Yes 0 [facility] 800 Ultra D 6-28 Refill(s) l oral tablet 05:53: glipiZIDE Yes 0 [facility] 10 mg oral 6-28 Refill(s) l tablet 05:53: citalopram Yes 0 [facility] 20 mg oral [...] 6-28 Refill(s) l oral tablet 05:53: Basaglar Yes 0 [facility] KwikPen 100 6-28 Refill(s) l units/mL 05:53: [facility] s solution Dialyvite Yes 0 [facility] 800 [...] 1000 mg Product Wasted: ___ mg Protonix 2021-0 No Notes: For Mem o[facility] 6-28 IV push l 03:37: reconstitu [place] 00 te with 10 ml 0.9% sodium chloride and push over 2 minutes. (Same as: Protonix) Protonix 2021-0 No Notes: For Mem [facility] 6-28 IV push l 03:37: reconstitu [place] 00 te with 10 ml 0.9% sodium chloride and push over 2 minutes. (Same as: Protonix) Protonix 2021-0 No Notes: For [facility] 6-28 IV push l 03:37: reconstitu [place] 00 te with 10 ml 0.9% sodium chloride and push over 2 minutes. (Same as: Protonix) Protonix No Notes: For Mem [facility] 6-28 IV push l 03:37: reconstitu [place] 00 te with 10 ml 0.9% sodium chloride and push over 2 minutes. (Same as: Protonix) Protonix No Notes: For Mem [facility] 6-28 IV push l 03:37: reconstitu [place] 00 te with 10 ml 0.9% sodium chloride and push over 2 minutes. (Same as: Protonix) Protonix No Notes: For Mem [facility] 6-28 IV push l 03:37: reconstitu [place] 00 te with 10 ml 0.9% sodium chloride and push over 2 minutes. (Same as: Protonix) Protonix No Notes: For [facility] 6-28 IV push l 03:37: reconstitu [place] 00 te with 10 ml 0.9% sodium chloride and push over 2 minutes. (Same as: Protonix) Advair HFA Advair HFA Yes [place] 2 puffs [place] 1-15 [facility] 00:00: - [facility] 00 [facility] BD BD 2018-05 Yes [place] 1 needle Common Ultra-Fine Ultra-Fine 0-09 [facility] with Sp jerome Christina Pen Christina Pen 00:00: Basaglar - [facility] [place] [facility] BD BD 2018-05 No QD BD Ultra-Fine Ultra-Fine 0-09 Ultra-Fine Christina Pen Christina Pen 00:00: Christina Pen [place] 4mm [place] 4mm 00 [place] x 32Gm x 32Gm 4mm x 32Gm BD BD 2018-05 No QD BD Ultra-Fine Ultra-Fine 0-09 Ultra-Fine Christina Pen Christina Pen 00:00: Christina Pen [place] 4mm [place] 4mm 00 [place] x 32Gm x 32Gm 4mm x 32Gm BD BD 2018-05 No QD BD Ultra-Fine Ultra-Fine 0-09 Ultra-Fine Christina Pen Christina Pen 00:00: Christina Pen [place] 4mm [place] 4mm 00 [place] x 32Gm x 32Gm 4mm x 32Gm BD BD 2018-05 No QD BD Ultra-Fine Ultra-Fine 0-09 Ultra-Fine Christina Pen Christina Pen 00:00: Christina Pen [place] 4mm [place] 4mm 00 [place] x 32Gm x 32Gm 4mm x 32Gm BD BD 2018-05 No QD BD Ultra-Fine Ultra-Fine 0-09 Ultra-Fine Christina Pen Christina Pen 00:00: Christina Pen [place] 4mm [place] 4mm 00 [place] x 32Gm x 32Gm 4mm x 32Gm [facility] 2018- No QD BD Ultra-Fine Ultra-Fine 0-09 Ultra-Fine Christina Pen Christina Pen 00:00: Christina Pen [place] 4mm [place] 4mm 00 [place] x 32Gm x 32Gm 4mm x 32Gm [facility] 2018-05 No QD BD Ultra-Fine Ultra-Fine 0-09 Ultra-Fine Christina Pen Christina Pen 00:00: Christina Pen [place] 4mm [place] 4mm 00 [place] x 32Gm x 32Gm 4mm x 32Gm [facility] 2018-05 No QD BD Ultra-Fine Ultra-Fine 0-09 Ultra-Fine Christina Pen Christina Pen 00:00: Christina Pen [place] 4mm [place] 4mm 00 [place] x 32Gm x 32Gm 4mm x 32Gm [facility] 2018-05 No QD BD Ultra-Fine Ultra-Fine 0-09 Ultra-Fine Christina Pen Christina Pen 00:00: Christina Pen [place] 4mm [place] 4mm 00 [place] x 32Gm x 32Gm 4mm x 32Gm [facility] 2018-05 No QD BD Ultra-Fine Ultra-Fine 0-09 Ultra-Fine Christina Pen Christina Pen 00:00: Christina Pen [place] 4mm [place] 4mm 00 [place] x 32Gm x 32Gm 4mm x 32Gm [facility] 2018-05 No QD BD Ultra-Fine Ultra-Fine 0-09 Ultra-Fine Christina Pen Christina Pen 00:00: Christina Pen [place] 4mm [place] 4mm 00 [place] x 32Gm x 32Gm 4mm x 32Gm [facility] 2018-05 No QD BD Ultra-Fine Ultra-Fine 0-09 Ultra-Fine Christina Pen Christina Pen 00:00: Christina Pen [place] 4mm [place] 4mm 00 [place] x 32Gm x 32Gm 4mm x 32Gm [facility] 2018-05 No QD BD Ultra-Fine Ultra-Fine 0-09 Ultra-Fine Christina Pen Christina Pen 00:00: Christina Pen [place] 4mm [place] 4mm 00 [place] x 32Gm x 32Gm 4mm x 32Gm [facility] 2018- No QD BD Ultra-Fine Ultra-Fine 0-09 Ultra-Fine Christina Pen Christina Pen 00:00: Christina Pen [place] 4mm [place] 4mm 00 [place] x 32Gm x 32Gm 4mm x 32Gm [facility] 2018-05 No QD BD Ultra-Fine Ultra-Fine 0-09 Ultra-Fine Christina Pen Christina Pen 00:00: Christina Pen [place] 4mm [place] 4mm 00 [place] x 32Gm x 32Gm 4mm x 32Gm [facility] 2018-05 No QD BD Ultra-Fine Ultra-Fine 0-09 Ultra-Fine Christina Pen Christina Pen 00:00: Christina Pen [place] 4mm [place] 4mm 00 [place] x 32Gm x 32Gm 4mm x 32Gm [facility] 2018-05 No QD BD Ultra-Fine Ultra-Fine 0-09 Ultra-Fine Christina Pen Christina Pen 00:00: Christina Pen [place] 4mm [place] 4mm 00 [place] x 32Gm x 32Gm 4mm x 32Gm [facility] 2018-05 No QD BD Ultra-Fine Ultra-Fine 0-09 Ultra-Fine Christina Pen Christina Pen 00:00: Christina Pen [place] 4mm [place] 4mm 00 [place] x 32Gm x 32Gm 4mm x 32Gm [facility] 2018-05 No QD BD Ultra-Fine Ultra-Fine 0-09 Ultra-Fine Christina Pen Christina Pen 00:00: Christina Pen [place] 4mm [place] 4mm 00 [place] x 32Gm x 32Gm 4mm x 32Gm [facility] 2018-05 No QD BD Ultra-Fine Ultra-Fine 0-09 Ultra-Fine Christina Pen Christina Pen 00:00: Christina Pen [place] 4mm [place] 4mm 00 [place] x 32Gm x 32Gm 4mm x 32Gm [facility] 2018-05 No QD BD Ultra-Fine Ultra-Fine 0-09 Ultra-Fine Christina Pen Christina Pen 00:00: Christina Pen [place] 4mm [place] 4mm 00 [place] x 32Gm x 32Gm 4mm x 32Gm [facility] 2018-05 No QD BD Ultra-Fine Ultra-Fine 0-09 Ultra-Fine Christina Pen Christina Pen 00:00: Christina Pen [place] 4mm [place] 4mm 00 [place] x 32Gm x 32Gm 4mm x 32Gm [...] 1 tablet C ommon 750 750 [facility] Basaglar Basaglar Yes La 52 Units C ommon KwikPen KwikPen [facility] PreserVisio PreserVisio Yes La as Common n AREDS n AREDS [facility] Citalopram Citalopram Yes La 1 tablet Common Hydrobromid Hydrobromid [facility] e e [facility] Stool Stool Yes La not Common Softener Softener [facility] defined Spi rit [facility] Gentle Gentle Yes La 1 tablet Commo n Laxative Laxative Fortune as needed S pirit [facility] Atorvastati Atorvastati Yes La 1 tablet Common n Calcium n Calcium [facility] Contour Contour Yes La USE 3 Common Test Test Fortune TIMES A [facility] Eliquis 2.5 Eliquis 2.5 Yes La 1 tablet Common mg mg [facility] Multivitami Multivitami Yes La as Common n Adult n Adult [facility] Carvedilol Carvedilol Yes La TAKE 1 Common [facility] TABLET BY Spirit MOUTH - [facility] TWICE A St DAY ON NON [facility] DIALYSIS Medical DAYS Fine Atorvastati Atorvastati Yes La TAKE 1 Common n Calcium n Calcium Fortune TABLET BY Spirit MOUTH - CHI EVERY DAY [facility] GlipiZIDE GlipiZIDE Yes La 1 tablet Common [facility] Basaglar Basaglar Yes La 50 Units C ommon KwikPen KwikPen [facility] Advair HFA Advair HFA No [...] Dexcom G6 Dexcom G6 No Dexcom G6 Resp Therapist - Resp Therapist - Resp Therapist - Carvedilol Carvedilol No Carvedilol 12.5 MG [...] Dexcom G6 Dexcom G6 No Dexcom G6 Resp Therapist - Resp Therapist - Resp Therapist - glipiZIDE 5 glipiZIDE 5 No 1{table [...] Dexcom G6 Dexcom G6 No Dexcom G6 Resp Therapist - Resp Therapist - Resp Therapist - Ipratropium Ipratropium No Ipratropiu -Albuterol -Albuterol [...] Dexcom G6 Dexcom G6 No Dexcom G6 Resp Therapist - Resp Therapist - Resp Therapist - Gentle Gentle No 1{table QD Gentle [...] Dexcom G6 Dexcom G6 No Dexcom G6 Resp Therapist - Resp Therapist - Resp Therapist - PreserVisio PreserVisio No PreserVisi n AREDS [...] Dexcom G6 Dexcom G6 No Dexcom G6 Resp Therapist - Resp Therapist - Resp Therapist - Advair HFA Advair HFA No 2{puffs [...] Dexcom G6 Dexcom G6 No Dexcom G6 Resp Therapist - Resp Therapist - Resp Therapist - Advair HFA Advair HFA No 2{puffs [...] Dexcom G6 Dexcom G6 No Dexcom G6 Resp Therapist - Resp Therapist - Resp Therapist - Advair HFA Advair HFA No 2{puffs [...] Dexcom G6 Dexcom G6 No Dexcom G6 Resp Therapist - Resp Therapist - Resp Therapist - Atorvastati Atorvastati No 1{table QD Atorvastat [...] Dexcom G6 Dexcom G6 No Dexcom G6 Resp Therapist - Resp Therapist - Resp Therapist - Atorvastati Atorvastati No Atorvastat n Calcium [...] Dexcom G6 Dexcom G6 No Dexcom G6 Resp Therapist - Resp Therapist - Resp Therapist - Atorvastati Atorvastati No Atorvastat n Calcium [...] FluAD 2021-03-30 [facility] 13:13:00 - [facility] FluAD FluAD 2021-03-30 [facility]pleted [facility] 13:13:00 - [facility] FluAD FluAD 2021-03-30 [facility] 13:13:00 - [facility] FluAD FluAD 2021-03-30 [facility] 13:13:00 - [facility] FluAD FluAD 2021-03-30 [facility] 13:13:00 - [facility] FluAD FluAD 2021-03-30 [facility] 13:13:00 - [facility] FluAD FluAD 2021-03-30 [facility] 13:13:00 - [facility] FluAD FluAD 2021-03-30 [facility]pleted [facility] 13:13:00 - [facility] FluAD FluAD 2021-03-30 [facility] 13:13:00 - [facility] FluAD FluAD 2021-03-30 [facility] 13:13:00 - [facility] FluAD FluAD 2021-03-30 [facility] 13:13:00 - [facility] FluAD FluAD 2021-03-30 [facility]pleted [facility] 13:13:00 - [facility] FluAD FluAD 2021-03-30 [facility]pleted [facility] 13:13:00 - [facility] FluAD FluAD 2021-03-30 [facility]pleted [facility] 13:13:00 - [facility] FluAD FluAD 2021-03-30 [facility] 13:13:00 - [facility] FluAD FluAD 2021-03-30 [facility] 13:13:00 - [facility] FluAD FluAD 2021-03-30 [facility]pleted [facility] 13:13:00 - [facility] FluAD FluAD 2021-03-30 [facility] 13:13:00 - [facility] FluAD FluAD 2021-03-30 [facility] 13:13:00 - [facility] FluAD FluAD 2021-03-30 [facility]pleted [facility] 13:13:00 [facility] COVID-19 Vaccine COVID-19 Vaccine 2020-08-19 Completed [facility] (Andrea) (Andrea) 09:17:00 [facility] COVID-19 Vaccine COVID-19 Vaccine 2020-08-19 Completed [facility] (Andrea[facility] (Andrea) 09:17:00 [facility] COVID-19 Vaccine COVID-19 Vaccine 2020-08-19 Completed [facility] (Andrea[facility] (Andrea) 09:17: [facility] COVID-19 Vaccine COVID-19 Vaccine 2020-08-19 Completed [facility] (Andrea[facility] (Andrea) 09:17: [facility] COVID-19 Vaccine COVID-19 Vaccine 2020-08-19 Completed [facility] (Andrea[facility] (Andrea) 09:17:00 - [facility] COVID-19 Vaccine COVID-19 Vaccine 2020-08-19 Completed [facility] (Andrea[facility] (Andrea) 09:17:00 - [facility] COVID-19 Vaccine COVID-19 Vaccine 2020-08-19 Completed [facility] (Andrea[facility] (Andrea) 09:17:00 - [facility] COVID-19 Vaccine COVID-19 Vaccine 2020-08-19 Completed [facility] (Andrea[facility] (Andrea) 09:17:00 - [facility] COVID-19 Vaccine COVID-19 Vaccine 2020-08-19 Completed [facility] (Andrea[facility] (Andrea) 09:17:00 - [facility] COVID-19 Vaccine COVID-19 Vaccine 2020-08-19 Completed [facility] ([facility]rea[facility] (Andrea) 09:17:00 [facility] COVID-19 Vaccine COVID-19 Vaccine 2020-08-19 Completed [facility] (Andrea[facility] (Andrea) 09:17:00 - [facility] COVID-19 Vaccine COVID-19 Vaccine 2020-08-19 Completed [facility] (Andrea[facility] (Andrea) 09:17:00 [facility] COVID-19 Vaccine COVID-19 Vaccine 2020-08-19 Completed [facility] (Andrea) (Andrea) 09:17:00 [facility] COVID-19 Vaccine COVID-19 Vaccine 2020-08-19 Completed [facility] (Andrea) (Andrea) 09:17:00 [facility] COVID-19 Vaccine COVID-19 Vaccine 2020-08-19 Completed [facility] (Andrea) (Andrea) 09:17:00 [facility] COVID-19 Vaccine COVID-19 Vaccine 2020-08-19 Completed [facility] (Andrea) (Andrea) 09:17:00 [facility] COVID-19 Vaccine COVID-19 Vaccine 2020-08-19 Completed [facility] (Andrea[facility] (Andrea) 09:17:00 [facility] COVID-19 Vaccine COVID-19 Vaccine 2020-08-19 Completed [facility] ([facility]rea[facility] (Andrea) 09:17:00 - [facility] COVID-19 Vaccine COVID-19 Vaccine 2020-08-19 Completed [facility] (Andrea[facility] (Andrea) 09:17:00 - [facility] COVID-19 Vaccine COVID-19 Vaccine 2020-08-19 Completed [facility] ([facility]rea[facility] (Andrea) 09:17:00 - [facility] COVID-19 Vaccine COVID-19 Vaccine 2020-08-19 Completed [facility] ([facility]rea[facility] (Andrea) 09:17:00 - [facility] COVID-19 Vaccine COVID-19 Vaccine 2020-08-19 Completed [facility] (Andrea[facility] (Andrea) 09:17:00 - [facility] Vital Signs Vital Name Observation Time Observation Value Comments Source Systolic blood 2022-10-31 17:36:00 132 mm[Hg] Univer sity of pressure [facility] Diastolic blood 2022-10-31 17:36:00 61 mm[Hg] Unive rsity of pressure [facility] Heart rate 2022-10-31 17:36:00 67 /min [facility] Respiratory rate 2022-10-31 17:36:00 19 /min [facility] Oxygen saturation in 2022-10-31 17:36:00 100 /min [facility] Arterial blood by [facility] Pulse oximetry Branch Body temperature 2022-10-31 13:59:00 37.39 Makayla [facility] Body height 2022-10-31 13:59:00 177.8 cm [facility] Body weight 2022-10-31 13:59:00 71.668 kg [facility] BMI 2022-10-31 13:59:00 22.67 kg/m2 [facility] Heart rate 2022-10-15 19:00:00 92 /min [facility] Respiratory rate 2022-10-15 19:00:00 13 /min Univ ersity [facility] Oxygen saturation in 2022-10-15 19:00:00 86 /min [facility] blood by [facility] Pulse oximetry Branch Systolic blood 2022-10-15 17:00:00 144 mm[Hg] Univer [facility]ity [facility] Diastolic blood 2022-10-15 17:00:00 53 mm[Hg] Unive rsity of [facility] Body temperature 2022-10-15 16:08:00 37.44 [facility]la [facility] Body weight 2022-10-15 14:00:00 70.489 kg Universi [facility] BMI 2022-10-15 14:00:00 25.86 kg/m2 Universi [facility] Body height 2022-10-10 19:00:00 165.1 cm [facility] height 2022-02-17 15:00:00 70 [in_i] Common [facility] weight 2022-02-17 15:00:00 208 [lb_av] [facility] temperature 2022-02-17 15:00:00 98.1 [degF] Common [facility] bmi 2022-02-17 15:00:00 29.84 kg/m2 Common [facility] blood pressure 2022-02-17 15:00:00 121 mm[Hg] [facility] - systolic [facility] blood pressure 2022-02-17 15:00:00 61 mm[Hg] [facility] - diastolic [facility] height 2022-01-06 14:30:00 70 [in_i] Common [facility] weight 2022-01-06 14:30:00 208 [lb_av] Common [facility] bmi 2022-01-06 14:30:00 29.84 kg/m2 Common [facility] blood pressure 2022-01-06 14:30:00 137 mm[Hg] [facility] - systolic [facility] blood pressure 2022-01-06 14:30:00 79 mm[Hg] [facility] - diastolic [facility] height 2021-11-03 09:45:00 70 [in_i] [facility] weight 2021-11-03 09:45:00 210 [lb_av] Common S pirit - [facility] bmi 2021-11-03 09:45:00 30.13 kg/m2 [facility] - [facility] blood pressure 2021-11-03 09:45:00 144 mm[Hg] [facility] - systolic [facility] blood pressure 2021-11-03 09:45:00 86 mm[Hg] [facility] - diastolic [facility] height 2021-07-28 14:10:00 70 [in_i] [facility] weight 2021-07-28 14:10:00 211.8 [lb_av] [facility] temperature 2021-07-28 14:10:00 97.5 [degF] [facility] bmi 2021-07-28 14:10:00 30.39 kg/m2 [facility] oximetry 2021-07-28 14:10:00 93 % [facility] respiratory rate 2021-07-28 14:10:00 16 /min [facility] blood pressure 2021-07-28 14:10:00 134 mm[Hg] Common [facility] - systolic [facility] blood pressure 2021-07-28 14:10:00 63 mm[Hg] Common [facility] - diastolic [facility] height 2021-07-28 13:20:00 70 [in_i] Common [facility] weight 2021-07-28 13:20:00 211.8 [lb_av] [facility] temperature 2021-07-28 13:20:00 97.5 [degF] [facility] bmi 2021-07-28 13:20:00 30.39 kg/m2 [facility] oximetry 2021-07-28 13:20:00 93 % [facility] respiratory rate 2021-07-28 13:20:00 16 /min [facility] blood pressure 2021-07-28 13:20:00 134 mm[Hg] Common [facility] - systolic [facility] blood pressure 2021-07-28 13:20:00 62 mm[Hg] [facility] - diastolic [facility] height 2021-04-28 13:10:00 70 [in_i] Common [facility] weight 2021-04-28 13:10:00 215.9 [lb_av] Common [facility] temperature 2021-04-28 13:10:00 97.3 [degF] Common S pirit [facility] bmi 2021-04-28 13:10:00 30.98 kg/m2 [facility] oximetry 2021-04-28 13:10:00 95 % [facility] S [facility] respiratory rate 2021-04-28 13:10:00 17 /min [facility] blood pressure 2021-04-28 13:10:00 121 mm[Hg] Common [facility] - systolic [facility] blood pressure 2021-04-28 13:10:00 60 mm[Hg] Common [facility] - diastolic [facility] height 2021-03-12 09:30:00 70 [in_i] Common [facility] weight 2021-03-12 09:30:00 211.4 [lb_av] [facility] temperature 2021-03-12 09:30:00 97.7 [degF] Common S pirit [facility] bmi 2021-03-12 09:30:00 30.33 kg/m2 Common S pirit [facility] oximetry 2021-03-12 09:30:00 95 % Common S [facility] respiratory rate 2021-03-12 09:30:00 16 /min [facility] blood pressure 2021-03-12 09:30:00 132 mm[Hg] Common [facility] - systolic [facility] blood pressure 2021-03-12 09:30:00 67 mm[Hg] [facility] - diastolic [facility] Heart Rate 2022-01-02 21:14:00 [facility] Rate 2022-01-02 21:14:00 [facility] Systolic (mm Hg) 2022-01-02 21:14:00 [facility] [place] Diastolic (mm Hg) 2022-01-02 21:14:00 [facility] Height 2022-01-02 17:28:00 167.64 cm [facility] BMI Calculated 2022-01-02 17:28:00 [facility] Weight 2022-01-02 17:28:00 [facility] Systolic (mm Hg) 2022-01-02 17:28:00 [facility] Diastolic (mm Hg) 2022-01-02 17:28:00 Mem [facility] [place] Heart Rate 2022-01-02 17:28:00 [facility] Respitory Rate 2022-01-02 17:28:00 [facility] Temperature Oral (F) 2022-01-02 17:28:00 97.5 F [facility] Temperature Oral (F) 2021-12-17 00:00:00 98.0 F [facility] Heart Rate 2021-12-17 00:00:00 [facility] Respitory Rate 2021-12-17 00:00:00 [facility] Systolic (mm Hg) 2021-12-17 00:00:00 [facility] Diastolic (mm Hg) 2021-12-17 00:00:00 [facility] Heart Rate 2021-12-16 21:00:00 [facility] Respitory Rate 2021-12-16 21:00:00 [facility] Systolic (mm Hg) 2021-12-16 21:00:00 [facility] Diastolic (mm Hg) 2021-12-16 21:00:00 [facility] Temperature Oral (F) 2021-12-16 21:00:00 98.0 F [facility] Heart Rate 2021-12-16 20:20:00 [facility] Respitory Rate 2021-12-16 20:20:00 [facility] Systolic (mm Hg) 2021-12-16 20:20:00 [facility] [place] Diastolic (mm Hg) 2021-12-16 20:20:00 [facility] [place] Temperature Oral (F) 2021-12-16 20:20:00 97.3 F [facility] Heart Rate 2021-12-15 08:58:06 [facility] Systolic (mm Hg) 2021-12-15 08:58:01 [facility] Diastolic (mm Hg) 2021-12-15 08:58:01 [facility] Heart Rate 2021-12-15 08:58:01 [facility] Temperature Oral (F) 2021-12-15 08:57:27 98.2 F [facility] Temperature Oral (F) 2021-12-15 05:00:00 97.5 F [facility] Heart Rate 2021-12-15 05:00:00 [facility] Systolic (mm Hg) 2021-12-15 05:00:00 [facility] [place] Diastolic (mm Hg) 2021-12-15 05:00:00 [facility] [place] Height 2021-12-15 03:03:00 177.8 cm [facility] Weight 2021-12-15 03:03:00 [facility] BMI Calculated 2021-12-15 03:03:00 [facility] Temperature Oral (F) 2021-12-15 01:20:46 97.4 F [facility] Systolic (mm Hg) 2021-12-15 01:20:42 [facility] [place] Diastolic (mm Hg) 2021-12-15 01:20:42 [facility] Respitory Rate 2021-12-15 00:45:00 [facility] [place] Height 2021-12-15 00:13:00 172.72 cm [facility] BMI Calculated 2021-12-15 00:13:00 [facility] Weight 2021-12-15 00:13:00 [facility] Respitory Rate 2021-12-14 23:56:00 [facility] Height 2021-12-14 23:34:00 172.72 cm [facility] Weight 2021-12-14 23:34:00 [facility] Respitory Rate 2021-12-14 23:18:00 [facility] BMI Calculated 2021-12-14 19:29:00 [facility] [place] Temperature Oral (F) 2021-12-04 14:04:00 97.9 F [facility] Heart Rate 2021-12-04 14:04:00 [facility] Respitory Rate 2021-12-04 14:04:00 [facility] Systolic (mm Hg) 2021-12-04 14:04:00 [facility] [place] Diastolic (mm Hg) 2021-12-04 14:04:00 [facility] Temperature Oral (F) 2021-12-04 12:30:00 97.9 F [facility] Heart Rate 2021-12-04 12:30:00 [facility] Respitory Rate 2021-12-04 12:30:00 [facility] [place] Systolic (mm Hg) 2021-12-04 12:30:00 [facility] [place] Diastolic (mm Hg) 2021-12-04 12:30:00 [facility] Respitory Rate 2021-12-04 11:45:00 [facility] Heart Rate 2021-12-04 11:45:00 [facility] Temperature Oral (F) 2021-12-04 11:45:00 98.4 F [facility] Systolic (mm Hg) 2021-12-04 04:57:00 [facility] [place] Diastolic (mm Hg) 2021-12-04 04:57:00 [facility] Weight 2021-12-03 23:22:00 [facility] Respitory Rate 2021-11-27 00:01:00 [facility] Heart Rate 2021-11-26 21:50:00 [facility] Respitory Rate 2021-11-26 21:50:00 [facility] Systolic (mm Hg) 2021-11-26 21:50:00 [facility] [place] Diastolic (mm Hg) 2021-11-26 21:50:00 [facility] [place] Temperature Oral (F) 2021-11-26 18:40:00 98.0 F [facility] Heart Rate 2021-11-26 18:40:00 [facility] [place] Respitory Rate 2021-11-26 18:40:00 [facility] [place] Systolic (mm Hg) 2021-11-26 18:40:00 [facility] Diastolic (mm Hg) 2021-11-26 18:40:00 Mem [facility] [place] Heart Rate 2021-11-26 16:41:35 [facility] Systolic (mm Hg) 2021-11-26 16:41:27 [facility] Diastolic (mm Hg) 2021-11-26 16:41:27 [facility] [place] Temperature Oral (F) 2021-11-26 16:40:28 98.4 F [facility] Temperature Oral (F) 2021-11-26 13:00:17 98.3 F [facility] Height 2021-11-25 03:24:00 [facility] 2021-11-25 03:24:00 [facility] [place] Weight 2021-11-25 03:24:00 [facility] Procedures Procedure Date / Time Performing Clinician Source Performed CT ABDOMEN PELVIS WO 2022-10-31 14:52:20 Ronnie Ayala [facility] CONTRAST Medical Branch CT THORAX WO CONTRAST 2022-10-31 14:52:20 Ronnie Ayala [facility] LIPASE 2022-10-31 14:22:00 [facility] COMP. METABOLIC PANEL 2022-10-31 14:22:00 Ronnie Ayala [facility] ([id number]) [facility] CBC WITH DIFF 2022-10-31 14:22:00 [facility]nie [facility] NOTICE OF PRIVACY 2022-10-31 13:54:24 Doctor Unassigned, [facility] PRACTICES [facility] CONSENT/REFUSAL FOR 2022-10-31 13:53:28 Doctor Unassigned, [facility] DIAGNOSIS AND TREATMENT [place] [facility] POCT GLUCOSE 2022-10-15 16:16:00 Mine Mosqueda [facility] (AUTOMATED) [facility] XR CHEST 1 VW 2022-10-15 14:27:00 [facility] POCT GLUCOSE 2022-10-15 12:24:00 Mine Mosqueda [facility] (AUTOMATED) [facility] BASIC METABOLIC PANEL 2022-10-15 09:26:00 Marianna Barbour [facility] (NA, K, CL, CO2, Medical Branch GLUCOSE, BUN, CREATININE, CA) CBC WITH DIFF 2022-10-15 09:26:00 Ammon [facility] PREPARE PACKED RBC 2022-10-15 05:15:09 Anita [facility] POCT GLUCOSE 2022-10-15 01:54:00 Dominic [facility] (AUTOMATED) [facility] XR CHEST 1 VW 2022-10-15 01:09:38 [facility] IR THORACENTESIS WITH 2022-10-14 23:00:51 Marianna Barbour [facility] IMAGING [facility] GLUCOSE BODY FLUID 2022-10-14 22:53:00 Marianna Barbour [facility] T.PROTEIN BODY FLUID 2022-10-14 22:53:00 Marianna [facility] BODY FLUID DIRECT COUNT 2022-10-14 22:53:00 Ammon Marianna [facility] BODY FLUID 2022-10-14 22:53:00 Ammon Marianna [facility] CULTURE(AEROBIC/ANAEROB [facility] IC) LDH TOTAL BODY FLUID 2022-10-14 22:53:00 Marianna [facility] XR CHEST 1 VW 2022-10-14 22:38:00 [facility] POCT GLUCOSE 2022-10-14 21:38:00 Dominic [facility] (AUTOMATED) [facility] HEPATITIS B SURFACE 2022-10-14 19:06:00 Anita Sanchez [facility] ANTIBODY [facility] HEPATITIS B SURFACE 2022-10-14 19:06:00 Anita Sanchez [facility] ANTIGEN [facility] POCT GLUCOSE 2022-10-14 16:36:00 Mine Mosqueda [facility] (AUTOMATED) [facility] POCT GLUCOSE 2022-10-14 12:50:00 Dominic [facility] (AUTOMATED) Medical Branch PHOSPHORUS 2022-10-14 08:27:00 Mine Mosqueda [facility] MAGNESIUM 2022-10-14 08:27:00 Dominic [facility] BASIC METABOLIC PANEL 2022-10-14 08:27:00 Mine Mosqueda [facility] (NA, K, CL, CO2, Medical Branch GLUCOSE, BUN, CREATININE, CA) VANCOMYCIN TROUGH 2022-10-14 08:27:00 Dahiana Albert [facility] CBC WITH DIFF 2022-10-14 08:27:00 [facility] DISCLOSURE AND CONSENT, 2022-10-14 05:01:00 Doctor Unassigned, Syl [facility] MEDICAL [facility] SURGICAL [place] [facility] PROCEDURES POCT GLUCOSE 2022-10-14 03:13:00 Dominic [facility] (AUTOMATED) [facility] POCT GLUCOSE 2022-10-13 21:41:00 Dominic [facility] (AUTOMATED) [facility] POCT GLUCOSE 2022-10-13 16:25:00 Dominic [facility] (AUTOMATED) [facility] POCT GLUCOSE 2022-10-13 12:34:00 Dominic [facility] (AUTOMATED) [facility] BASIC METABOLIC PANEL 2022-10-13 09:16:00 Mine Mosqueda [facility] (NA, K, CL, CO2, Medical Branch GLUCOSE, BUN, CREATININE, CA) CBC WITH DIFF 2022-10-13 09:16:00 Dominic [facility] POCT GLUCOSE 2022-10-13 01:24:00 Dominic [facility] (AUTOMATED) [facility] POCT GLUCOSE 2022-10-12 21:23:00 Mine Mosqueda [facility] (AUTOMATED) [facility] TRANSFUSE PACKED RBC 2022-10-12 18:39:00 [facility] PREPARE PACKED RBC 2022-10-12 18:29:53 Angel Gunn [facility] POCT GLUCOSE 2022-10-12 16:47:00 Mine Mosqueda [facility] (AUTOMATED) [facility] BLOOD CULTURE SCREEN 2022-10-12 15:52:00 [facility] BLOOD CULTURE SCREEN 2022-10-12 15:40:00 [facility] XR CHEST 1 VW 2022-10-12 14:31:35 Dominic, [facility] POCT GLUCOSE 2022-10-12 12:44:00 Dominic [facility] (AUTOMATED) [facility] PHOSPHORUS 2022-10-12 09:58:00 Dominic [facility] MAGNESIUM 2022-10-12 09:58:00 Dominic [facility] TROPONIN I 2022-10-12 09:58:00 Tim Alejandro [facility] BASIC METABOLIC PANEL 2022-10-12 09:58:00 Mine [facility] (NA, K, CL, CO2, Medical Branch GLUCOSE, BUN, CREATININE, CA) LIPID PANEL 2022-10-12 09:58:00 Tim Alejandro [facility] ([id number])(TOTAL Medical Branch CHOLESTEROL, TRIGLYCERIDES, HDL) CBC WITH DIFF 2022-10-12 09:58:00 Dominic [facility] N-TERMINAL PRO-BNP 2022-10-12 09:58:00 Tim Alejandro [facility] POCT GLUCOSE 2022-10-12 06:42:00 Dominic [facility] (AUTOMATED) [facility] TROPONIN I 2022-10-12 03:10:00 [facility] 2022-10-12 01:19:00 Dominic [facility] (AUTOMATED) [facility] OCCULT (GUAIAC) BLOOD 2022-10-11 21:58:00 Mine Mosqueda [facility] POCT GLUCOSE 2022-10-11 21:19:00 Dominic [facility] (AUTOMATED) [facility] IRON 2022-10-11 18:20:00 Dominic [facility] TOTAL IRON BINDING 2022-10-11 18:20:00 Mine Mosqueda [facility] CAPACITY [facility] TROPONIN I 2022-10-11 18:20:00 [facility] RETICULOCYTES AUTOMATED 2022-10-11 18:20:00 Mine Mosqueda [facility] PROCALCITONIN 2022-10-11 18:20:00 Dominic [facility] POCT GLUCOSE 2022-10-11 16:58:00 Dominic [facility] (AUTOMATED) Medical Branch POCT GLUCOSE 2022-10-11 16:05:00 Dominic [facility] (AUTOMATED) [facility] ABORH CONFIRMATION (LAB 2022-10-11 15:23:00 Luis A [facility] Medical Branch TROPONIN I 2022-10-11 15:08:00 Lusi A [facility] POCT GLUCOSE 2022-10-11 14:22:00 Dominic [facility] (AUTOMATED) [facility] TRANSTHORACIC ECHO 2022-10-11 13:32:00 Luis A [facility] (TTE) COMPLETE [facility] POCT GLUCOSE 2022-10-11 13:04:00 Dominic [facility] (AUTOMATED) [facility] POCT GLUCOSE 2022-10-11 12:04:00 Dominic [facility] (AUTOMATED) [facility] POCT GLUCOSE 2022-10-11 11:21:00 Dominic [facility] (AUTOMATED) [facility] HB ABO GROUPING 2022-10-11 11:20:00 Luis A [facility] PHOSPHORUS 2022-10-11 09:41:00 Luis A [facility] MAGNESIUM 2022-10-11 09:41:00 Luis A [facility] TROPONIN I 2022-10-11 09:41:00 Luis A [facility] BASIC METABOLIC PANEL 2022-10-11 09:41:00 Luis A [facility] (NA, K, CL, CO2, Medical Branch GLUCOSE, BUN, CREATININE, CA) CBC WITHOUT DIFF 2022-10-11 09:41:00 Luis A [facility] POCT GLUCOSE 2022-10-11 09:41:00 Dominic [facility] (AUTOMATED) [facility] N-TERMINAL PRO-BNP 2022-10-11 09:41:00 Luis A [facility] POCT GLUCOSE 2022-10-11 08:43:00 Dominic [facility] (AUTOMATED) [facility] POCT GLUCOSE 2022-10-11 07:36:00 Dominic [facility] (AUTOMATED) Medical Branch POCT GLUCOSE 2022-10-11 06:18:00 Dominic [facility] (AUTOMATED) [facility] POCT GLUCOSE 2022-10-11 05:52:00 Dominic [facility] (AUTOMATED) [facility] POCT GLUCOSE 2022-10-11 04:24:00 Dominic [facility] (AUTOMATED) [facility] POCT GLUCOSE 2022-10-11 03:33:00 Dominic [facility] (AUTOMATED) [facility] POCT GLUCOSE 2022-10-11 02:08:00 Dominic [facility] (AUTOMATED) Medical [facility] POCT GLUCOSE 2022-10-11 01:08:00 Dominic [facility] (AUTOMATED) Medical Branch MRSA / MSSA SCREEN BY 2022-10-11 00:16:00 Mine Mosqueda [facility] PCR, [facility] CRITICAL CARE 2022-10-10 23:43:37 Dom [facility] POCT GLUCOSE 2022-10-10 23:20:00 Mine Mosqueda [facility] (AUTOMATED) Medical Branch POCT GLUCOSE 2022-10-10 21:42:00 Dom [facility] (AUTOMATED) Medical Branch POCT GLUCOSE 2022-10-10 21:25:00 Dom [facility] (AUTOMATED) [facility] [place] HB ECG ROUTINE & RHYTHM 2022-10-10 21:20:02 Fabian Fernandes [facility] STRIP [facility] AC PANEL 21 + LACTIC 2022-10-10 20:50:00 Fabian Fernandes [facility] ACID [facility] POCT GLUCOSE 2022-10-10 20:32:00 Dom Fabian [facility] (AUTOMATED) [facility] [place] CT THORAX WO CONTRAST 2022-10-10 20:31:25 Fabian Fernandes [facility] CT ABDOMEN PELVIS WO 2022-10-10 20:30:49 Fabian Fernandes [facility] CONTRAST Medical Branch CT HEAD WO CONTRAST 2022-10-10 20:30:49 Fabian Fernandes [facility] POCT GLUCOSE 2022-10-10 19:43:00 Fabian Fernandes [facility] (AUTOMATED) Medical Branch XR CHEST 1 VW 2022-10-10 19:40:00 [facility] BLOOD CULTURE SCREEN 2022-10-10 19:38:00 [facility] BLOOD CULTURE WORKUP 2022-10-10 19:38:00 [facility] GRAM POSITIVE BLOOD 2022-10-10 19:38:00 Fabian Fernandes [facility] PATHOGENS DNA Medical Branch PROBE-AEROBIC ASSIGNMENT OF BENEFITS 2022-10-10 19:11:20 Doctor Unassigned, [facility] [place] [facility] CONSENT/REFUSAL FOR 2022-10-10 19:10:59 Doctor Unassigned, [facility] DIAGNOSIS AND TREATMENT [place] [facility] TROPONIN I 2022-10-10 19:08:00 [facility] COMP. METABOLIC PANEL 2022-10-10 19:08:00 Fabian Fernandes [facility] ([id number]) [facility] CBC WITH DIFF 2022-10-10 19:08:00 [facility] GLYCOSYLATED HEMOGLOBIN 2022-10-10 19:08:00 Mine Mosqueda [facility] (A1C) [facility] N-TERMINAL PRO-BNP 2022-10-10 19:08:00 Fabian Fernandes [facility] POCT GLUCOSE 2022-10-10 18:58:00 Fabian Fernandes [facility] (AUTOMATED) [facility] [id number] 2021-10-18 00:00:00 [facility] En[facility] Start End Encounter Admission Attending Care Care Encounter Source Date/Time Date/Time Type Type Clinicians Facility Department ID 2022-11-10 Outpatient [facility], STLMLC STLC [id number] Common 11:36:01 [place] [address] [facility] 2022-05-20 Outpatient Frotune, STLMLC STLC [id number] Common 08:24:01 [place] [address] [facility] 2022-05-15 Outpatient [facility], STLC STLC [id number] Common 08:53:00 [place] [address] [facility] 2022-05-11 Outpatient [facility], STLC STLC [id number] Common 14:49:00 La [facility] 2022-05-08 Outpatient [facility], STLMLC STLMLC [id number] Common 10:15:01 La [facility] 2022-05-07 Outpatient [facility], STLMLC STLMLC [id number] Common 11:53:00 [facility] 2022-02-18 Outpatient [facility], STLMLC STLMLC [id number] Common 12:05:01 [facility] 2022-01-01 Outpatient [facility], STLMLC STLMLC [id number] Common 10:24:01 [facility] 2021-12-29 Outpatient [facility], STLMLC STLMLC [id number] Common 08:34:00 [facility] 2021-12-[address] [facility] [id number] [place] 14:42:21 [id number] [facility] 2021-11-19 Outpatient [facility], STLMLC STLMLC [id number] Common 08:42:01 [facility] 2021-11-03 Outpatient [facility], STLMLC STLMLC [id number] Common 10:33:01 [facility] 2021-10-15 Outpatient 3 [id number] ENCPL REF [id number] [facility] 08:19:25 [facility] [place] [facility] 2021-10-14 Outpatient 3 [id number] ENCPL REF [id number] [facility] 11:59:03 0517 [facility] [place] 2021-06-25 Outpatient [facility], STLMLC STLMLC [id number] [place] 14:22:06 [place] [address] [facility] 2021-06-25 Outpatient [facility], STLMLC STLMLC [id number] Common 14:13:51 [place] [address] [facility] 2021-06-25 Outpatient [facility], STLMLC STLMLC [id number] Common 13:38:12 [place] [address] [facility] 2021-06-25 Outpatient [facility], STLMLC STLMLC [id number] Common 12:43:29 [place] [address] [facility] 2021-06-25 Outpatient [facility], STLMLC STLMLC [id number] Common 12:42:27 [place] [address] [facility] 2021-06-25 Outpatient [facility], STLMLC STLMLC [id number] [place] 12:31:12 [place] [address] [facility] 2021-06-25 Outpatient [facility], STLMLC STLMLC [id number] Common 12:31:03 [place] [address] [facility] 2021-06-25 Outpatient [facility], STLMLC STLMLC [id number] Common 12:30:21 [place] [address] [facility] 2021-06-25 Outpatient [facility], STLMLC STLMLC [id number] Common 11:00:43 [place] [address] [facility] 2022-10-31 2022-10-31 Emergency X [facility]A [facility] [id number] Univers 09:00:00 12:40:00 [facility] 2022-10-31 Emergency Isabella [facility] [id number] Univers 09:00:00 12:40:00 Ronnie Shayna FOREIGN [id number] i ty of AGENDA [id number] [facility] [id number] [facility] 084 Branch 2022-10-16 2022-10-16 Transition SHAJI Davis [id number] Univers 00:00:00 00:00:00 of Care Ubaldo VALLE [id number] ity of [place]YN 4.2.7.2.686 [facility] [id number] [facility] 403 Branch 2022-10-10 2022-10-15 Inpatient X AMMON [facility] [id number] Univers 13:54:00 14:40:00 MARIANNA [facility] 2022-10-10 2022-10-15 [facility] Fabian Fernandes [facility] [id number] Univers 13:54:00 14:40:00 Encounter Mine Mosqueda [id number] ity of [place] [id number] [facility] [id number] [facility] 080 Branch 2022-07-03 2022-07-03 (TEL) STLMLC STLMLC [id number] Co mmon 00:00:00 00:00:00 [facility] 2022-06-08 2022-06-08 (TEL) STLMLC STLMLC [id number] Co mmon 00:00:00 00:00:00 [facility] 2022-05-06 2022-05-06 (TEL) STLMLC STLMLC [id number] Co mmon 00:00:00 00:00:00 [facility] 2022-04-03 2022-04-03 (TEL) STLMLC STLMLC [id number] Co mmon 00:00:00 00:00:00 [facility] 2022-02-17 2022-02-17 (TEL) STLMLC STLMLC [id number] Co mmon 00:00:00 00:00:00 [facility] 2022-02-17 2022-02-17 OFFICE STLMLC STLMLC [id number] Co mmon 00:00:00 00:00:00 VISIT [facility] ESTAB PT - CHI LEVEL 4 [facility] 2022-01-06 2022-01-06 OFFICE STLMLC STLMLC [id number] Co mmon 00:00:00 00:00:00 VISIT [facility] ESTAB PT - CHI LEVEL 4 [facility] 2022-01-02 2022-01-02 [facility] [id number] Memoria 17:12:00 21:33:00 latrice Celeste [address] [place] [address] 2022-01-02 2022-01-02 [facility] [id number] Memoria 17:12:00 21:33:00 latrice Celeste 03 [facility] 2022-01-02 2022-01-02 Emergency JANE SOLIZ STEPHANIE [id number] BL 12:12:00 16:33:00 CAREY 2022-01-02 2022-01-02 Outpatient Long, MHPL MHPL [id number] 12:12:00 16:33:00 Carey R 03 2022-01-01 2022-01-01 (TEL) STLMLC STLMLC [id number] Co mmon 00:00:00 00:00:00 [facility] 2021-12-31 2021-12-31 (TEL) STLMLC STLC [id number] Co mmon 00:00:00 00:00:00 [facility] 2021-12-14 2021-12-17 Inpatient nullFlavo [facility] [id number] Memoria 19:19:49 03:14:00 r Booker 02 [facility] 2021-12-14 2021-12-17 Inpatient nullFlavo [facility] [id number] Memoria 19:19:49 03:14:00 latrice Celeste 02 [facility] 2021-12-14 2021-12-16 Inpatient E SAJJA, MHBL MED [id number] MHBL 18:26:00 22:14:00 ZACHARY 2021-12-14 2021-12-16 Outpatient Sajja, MHPL MHPL [id number] 14:19:49 22:14:00 Zachary 02 2021-12-14 2021-12-14 Outpatient Ajibade, MHPL MHPL [id number] 14:19:49 14:19:49 Monse 02 [place] 2021-12-03 2021-12-04 Emergency nullFlavo [facility] [id number] Memoria 23:19:26 14:53:00 r Booker [facility] 2021-12-03 2021-12-04 Emergency nullFlavo [facility] [id number] Memoria 23:19:26 14:53:00 latrice Celeste [facility] 2021-12-03 2021-12-04 Outpatient Fadowole, MHPL MHPL [id number] 18:19:26 09:53:00 Pepper 01 [place] 2021-12-03 2021-12-04 Emergency E FADOWOLE, MHBL MHBL [id number] MHBL 18:19:00 09:53:00 PEPPER 2021-12-01 2021-12-01 Outpatient COH COH PIJFJKR ZIB COH 00:00:00 00:00:00 D-202112032021-11-25 2021-11-27 Observatio nullFlavo [facility] [id number] Memoria 03:23:10 00:12:00 n r [place] 00 l [facility] 2021-11-25 2021-11-27 Observatio nullFlavo [facility] [id number] Memoria 03:23:10 00:12:00 n r [place] 00 l [facility] 2021-11-25 2021-11-26 Outpatient E CAROLINE, RADHABL MED [id number] BL 10:37:00 19:12:00 MONSE 2021-11-24 2021-11-26 Outpatient Ajibade, MHPL MHPL [id number] 22:23:10 19:12:00 Monse 00 [facility] 2021-11-24 2021-11-26 Outpatient Ajibade, MHPL MHPL [id number] 22:23:10 19:12:00 Monse 00 [facility] 2021-11-24 2021-11-24 (TEL) STLMLC STLMLC [id number] Co mmon 00:00:00 00:00:00 [facility] 2021-10-16 2021-11-03 Inpatient 3 NATHANIEL, ENCPL GILDA [id number] [facility] 23:26:00 21:40:00 CHILANGO 0519 [facility] [place] 2021-11-03 2021-11-03 OFFICE STLMLC STLMLC [id number] Co mmon 00:00:00 00:00:00 VISIT NEW Spir it PT LEVEL 4 - [facility] 2021-10-17 2021-10-17 (TEL) STLMLC STLMLC [id number] Co mmon 00:00:00 00:00:00 [facility] 2021-08-12 2021-08-12 (TEL) STLMLC STLMLC [id number] Co mmon 00:00:00 00:00:00 [facility] 2021-07-28 2021-07-28 OFFICE STLMLC STLMLC [id number] Co mmon 00:00:00 00:00:00 VISIT [facility] ESTAB PT - CHI LEVEL 4 [facility] 2021-07-28 2021-07-28 SUB ANNUAL STLMLC STLMLC [id number] Common 00:00:00 00:00:00 MCR [facility] VISIT [facility] 2021-06-12 2021-06-12 (TEL) STLMLC STLMLC [id number] Co mmon 00:00:00 00:00:00 [facility] 2021-05-21 2021-05-21 (TEL) STLMLC STLMLC [id number] Co mmon 00:00:00 00:00:00 [facility] 2021-04-28 2021-04-28 OFFICE STLMLC STLMLC [id number] Co mmon 00:00:00 00:00:00 VISIT [facility] PT - CHI LEVEL 4 [facility] 2021-03-26 2021-03-26 (TEL) STLMLC STLMLC [id number] Co mmon 00:00:00 00:00:00 [facility] 2021-03-12 2021-03-12 OFFICE STLMLC STLMLC [id number] Co mmon 00:00:00 00:00:00 VISIT [facility] PT - CHI LEVEL 4 [facility] 2021-02-10 2021-02-10 Outpatient STLMLC STLMLC [id number] Common 00:00:00 00:00:00 [facility] 2021-01-31 2021-01-31 Outpatient STLMLC STLMLC [id number] Common 00:00:00 00:00:00 [facility] 2021-01-13 2021-01-13 Outpatient STLMLC STLMLC [id number] Common 00:00:00 00:00:00 [facility] 2021-01-08 2021-01-08 Outpatient STLMLC STLMLC [id number] Common 00:00:00 00:00:00 [facility] 2020-12-31 2020-12-31 Outpatient STLMLC STLMLC [id number] Common 00:00:00 00:00:00 [facility] 2020-12-11 2020-12-11 Outpatient STLMLC STLMLC [id number] Common 00:00:00 00:00:00 [facility] 2020-08-19 2020-08-19 Outpatient STLMLC STLMLC [id number] Common 00:00:00 00:00:00 [facility] 2020-07-19 2020-07-19 Outpatient STLMLC STLMLC [id number] Common 00:00:00 00:00:00 [facility] 2020-07-15 2020-07-15 Outpatient STLMLC STLMLC [id number] Common 00:00:00 00:00:00 [facility] 2020-06-14 2020-06-14 Outpatient STLMLC STLMLC [id number] Common 00:00:00 00:00:00 [facility] 2020-06-05 2020-06-05 Outpatient STLMLC STLMLC [id number] Common 00:00:00 00:00:00 [facility] 2020-04-23 2020-04-23 Outpatient STLMLC STLMLC [id number] Common 00:00:00 00:00:00 [facility] 2020-04-22 2020-04-22 Outpatient STLMLC STLMLC [id number] Common 00:00:00 00:00:00 [facility] 2020-04-17 2020-04-17 Outpatient STLMLC STLMLC [id number] Common 00:00:00 00:00:00 [facility] 2020-01-15 2020-01-15 [facility] [id number] Common 10:45:00 10:45:[address] [facility] 2019-10-16 2019-10-16 Out[facility] [id number] Common 13:00:00 13:00:[address] [facility] 2019-07-17 2019-07-17 Outpatient [facility] [id number] Common 13:45:00 13:45:[address] [facility] 2019-06-14 2019-06-14 Outpatient [facility] [id number] Common 11:45:00 11:45:[address] [facility] 2019-06-07 2019-06-07 Outpatient [facility] [id number] Common 11:57:00 11:57:[address] [facility] 2019-05-17 2019-05-17 Outpatient [facility] [id number] Common 11:30:00 11:30:[address] [facility] 2019-04-24 2019-04-24 Outpatient [facility] [id number] Common 14:52:00 14:52:[address] [facility] 2019-04-19 2019-04-19 Outpatient [facility] [id number] Common 14:45:00 14:45:[address] [facility] 2019-04-06 2019-04-06 Outpatient [facility] [id number] Common 08:35:00 08:35:[address] [facility] 2019-04-04 2019-04-04 Outpatient [facility] [id number] Common 08:34:00 08:34:[address] [facility] 2019-03-08 2019-03-08 Outpatient [facility] [id number] Common 10:57:00 10:57:[address] [facility] 2019-02-20 2019-02-20 Outpatient [facility] [id number] Common 14:00:00 14:00:[address] [facility] Results Test Description Test Time Test Comments Results Result Comments Source COMP. METABOLIC PANEL (01710) 2022-10-31 15:25:34 Test Item Value Reference Range Interpretation Comme nts NA (test code = 8146502999) 136 mmol/L 135-145 K (test code = 5558742203) 4.7 mmol/L 3.5-5.0 CL (test code = 6058830469) 96 mmol/L 98-108 L CO2 TOTAL (test code = 1806895064) 31 mmol/L 23-31 AGAP (test code = 5455028752) 9 2-16 BUN (test code = 7672802562) 26 mg/dL 7-23 H GLUCOSE (test code = 2464421082) 190 mg/dL 70-110 H CREATININE (test code = 2.56 mg/dL 0.60-1.25 H 1447341383) TOTAL BILI (test code = 0.9 mg/dL 0.1-1.9 4994269721) CALCIUM (test code = 8587141020) 9.6 mg/dL 8.6-10.6 T PROTEIN (test code = 4317501785) 6.4 g/dL 6.3-8.2 ALBUMIN (test code = 3800372491) 3.5 g/dL 3.5-5.0 ALK PHOS (test code = 7178877024) 307 U/L 34-122 H ALTv (test code = 1742-6) 27 U/L 5-50 AST(SGOT) (test code = 8000454740) 28 U/L 13-40 eGFR (test code = 0646950952) 24.5 mL/min/1.73m2 MALIK (test code = MALIK) [...] tests). Lab Interpretation (test code = Abnormal 83621-1) [facility] 15[facility]25:34 Test Item Value Reference Range Interpretation Comments LIPASE (test code = 0777489948) 212 U/L 0-220 Lab Interpretation (test code = Normal 19158-2) [facility] WITH [id number] 15:12:12 Test Item Value Reference Range Interpretation Comments WBC (test code = 4.75 See_Comment [Automated 6690-2) message] The sy stem which generated this result transmitted reference range : 4.20 - 10.70 10*3/?L. The reference range was not used to interpret this result as normal/abnormal . RBC (test code = 1.98 See_Comment L [Automated 129-8) message] The sy stem which generated this [...] RDW-SD (test code = 45.4 fL 38.5-51.6 07051-1) RDW-CV (test code = 14.3 % 12.1-15.4 788-0) PLT (test code = 191 See_Comment [Automated 777-3) message] The sy stem which generated this result transmitted reference range : 150 - 328 10*3/ ?L. The reference r samantha was not used to interpret this result as normal/abnormal . MPV (test code = 10.1 fL 9.8-13.0 28299-6) NRBC/100 WBC (test 0.0 See_Comment [Automat ed code = 1952741905) message] The system which generated this result transmitted reference range : 0.0 - 10.0 /100 WBCs. The refer ence range was not u sed to interpret th is result as normal/abnormal . NRBC x10^3 (test code See_Comment [Auto mated = 8407571225) message] The s ystem which generated this result transmitted reference range : 10*3/?L. The reference range was not used to interpret this result as normal/abnormal . GRAN MAT (NEUT) % 62.8 % (test code = 770-8) IMM GRAN % (test code 0.60 % = 4231196758) LYMPH % (test code = 23.2 % 736-9) MONO % (test code = 10.9 % 5905-5) EOS % (test code = 2.3 % 713-8) BASO % (test code = 0.2 % 706-2) GRAN MAT x10^3(ANC) 2.98 10*3/uL 1.99-6.95 (test code = 5037246009) IMM GRAN x10^3 (test 0.03 10*3/uL 0.00-0.06 code = 3892980038) LYMPH x10^3 (test code 1.10 10*3/uL 1.09-3.23 = 731-0) MONO x10^3 (test code 0.52 10*3/uL 0.36-1.02 = 742-7) EOS x10^3 (test code = 0.11 10*3/uL 0.06-0.53 711-2) BASO x10^3 (test code 0.01-0.09 = 704-7) Lab Interpretation Abnormal (test code = 25897-5) [facility] GLUCOSE (AUTOMATED)2022-10-15 16:18:07 Test Item Value Reference Range Interpretation Comments POCT GLU (test code = 7776117798) 131 mg/dL 70-110 H Lab Interpretation (test code = Abnormal 75308-5) [facility] GLUCOSE (AUTOMATED)2022-10-15 12:27:02 Test Item Value Reference Range Interpretation Comments POCT GLU (test code = 4824196056) 220 mg/dL 70-110 H Lab Interpretation (test code = Abnormal 55667-0) [facility] (in units), 2 Units 2022-10-15 05:15:09 Test Item Value Reference Range Interpretation Comments Cross Match Result Compatible (test code = 4409) ISBT Blood Type Code 6200 (test code = 683819) Unit Blood Type (test A Pos code = 4410) Unit Number (test [id number] code = 4411) Blood Expiration Date & Time (test code = 472571) Status Information Released (test code = 4412) Product Red Blood Cells Identification (test code = 4413) Product Code (test [id number] Performed at [facility] code = 4414) Laboratory Services - [facility] Blood [address] [place], [place] [id number] Free: [phone] A No. [id number] [facility] GLUCOSE (AUTOMATED)2022-10-15 01:55:15 Test Item Value Reference Range Interpretation Comments POCT GLU (test code = 9528012049) 152 mg/dL 70-110 H Lab Interpretation (test code = Abnormal 21398-1) [facility] Surface Antibody (HBsAb)2022-10-15 00:05:17 Test Item Value Reference Range Interpretation Comments HBsAB (test code = Negative 0409675664) HBsAb 3.80 mIU/mL Semi-Quantitative (test code = 6793897416) MALIK (test code = Interpretation: MALIK) ?Hepatitis B Surface Antibody ? Negative - Patient is considered to be not immune to infection with HBV. ? ? Positive - Anti-HBs detected at greater than or equal to 12 mIU/mL. ?Patient is considered to be immune to infection with HBV. ? [facility] Surface Antigen (HBsAg)2022-10-14 23:47:58 Test Item Value Reference Range Interpretation Comments HBsAg Semi-Quantitative (test code = 0.09 Negative 5195-3) [facility] GLUCOSE (AUTOMATED)2022-10-14 21:41:48 Test Item Value Reference Range Interpretation Comments POCT GLU (test code = 6803732761) 118 mg/dL 70-110 H Lab Interpretation (test code = Abnormal 42269-5) [facility] GLUCOSE (AUTOMATED)2022-10-14 16:47:29 Test Item Value Reference Range Interpretation Comments POCT GLU (test code = 7924509757) 132 mg/dL 70-110 H Lab Interpretation (test code = Abnormal 79690-7) [facility] CULTURE [id number] 14:16:04 Test Item Value Reference Range Interpretation Comments Blood Culture-Aerobic Culture positive. No growth AA P revious (test code = 26745-8) See Blood Culture p reliminary Workup for verified result additional was Culture In information. Progress on 10/10/2022 at 19 01 CDTPrevious preliminary verified result was No growth a t 24 hours on 10/11/2022 at 16 01 CDT Blood No organisms No growth Previous Culture-Anaerobic isolated preliminar y (test code = 45313-9) verifi ed result was Culture In Progress on 10/10/2022 at 19 01 CDTPrevious preliminary verified result was No growth a t 24 hours on 10/11/2022 at 16 01 CDTPrevious preliminary verified result was Culture In Progress on 10/12/2022 at 11 51 CDT Lab Interpretation Abnormal (test code = 89840-0) [facility] CULTURE [id number] 14:16:04 Test Item Value Reference Range Interpretation Comments Blood Culture-Aerobic Culture positive. No growth AA P revious (test code = 30463-3) See Blood Culture p reliminary Workup for verified result additional was Culture In information. Progress on 10/10/2022 at 19 01 CDTPrevious preliminary verified result was No growth a t 24 hours on 10/11/2022 at 16 01 CDT Blood No organisms No growth Previous Culture-Anaerobic isolated preliminar y (test code = 83848-0) verifi ed result was Culture In Progress on 10/10/2022 at 19 01 CDTPrevious preliminary verified result was No growth a t 24 hours on 10/11/2022 at 16 01 CDT Lab Interpretation Abnormal (test code = 23682-5) [facility] GLUCOSE (AUTOMATED)2022-10-14 12:54:35 Test Item Value Reference Range Interpretation Comments POCT GLU (test code = 7253530040) 221 mg/dL 70-110 H Lab Interpretation (test code = Abnormal 34753-5) [facility] GLUCOSE (AUTOMATED)2022-10-14 03:16:56 Test Item Value Reference Range Interpretation Comments POCT GLU (test code = 7813373710) 129 mg/dL 70-110 H Lab Interpretation (test code = Abnormal 91321-6) [facility] GLUCOSE (AUTOMATED)2022-10-13 21:44:17 Test Item Value Reference Range Interpretation Comments POCT GLU (test code = 6242057169) 95 mg/dL 70-110 Lab Interpretation (test code = Normal 05039-4) [facility] GLUCOSE (AUTOMATED)2022-10-13 16:27:34 Test Item Value Reference Range Interpretation Comments POCT GLU (test code = 0343667974) 167 mg/dL 70-110 H Lab Interpretation (test code = Abnormal 33525-9) [facility] GLUCOSE (AUTOMATED)2022-10-13 12:36:25 Test Item Value Reference Range Interpretation Comments POCT GLU (test code = 7897701697) 169 mg/dL 70-110 H Lab Interpretation (test code = Abnormal 06562-0) [facility] GLUCOSE (AUTOMATED)2022-10-13 01:25:21 Test Item Value Reference Range Interpretation Comments POCT GLU (test code = 6623555277) 142 mg/dL 70-110 H Lab Interpretation (test code = Abnormal 18063-0) [facility] POSITIVE BLOOD PATHOGENS DNA [id number] 21:42:17 Test Item Value Reference Range Interpretation Comments Coagulase Negative Positive Negative, See A Staphylococcus (test Comment/Narrative code = 68053-2) MALIK (test code = MALIK) Coagulase negative [...] contact the Antimicrobial Stewardship Program with questions.Pager: ?[phone] Testing included eleven identification and three resistance marker targets. Lab Interpretation Abnormal (test code = 77435-9) [facility] GLUCOSE (AUTOMATED)2022-10-12 21:24:15 Test Item Value Reference Range Interpretation Comments POCT GLU (test code = 7105473299) 124 mg/dL 70-110 H Lab Interpretation (test code = Abnormal 28821-6) [facility]ownPrepar Packed RBC (in units), 1 Units 2022-10-12 18:29:53 Test Item Value Reference Range Interpretation Comments Cross Match Result Compatible (test code = 4409) ISBT Blood Type Code 6200 (test code = 446037) Unit Blood Type (test A Pos code = 4410) Unit Number (test [id number] code = 4411) Blood Expiration Date [id number] & Time (test code = 124516) Status Information Issued (test code = 4412) Product Red Blood Cells Identification (test code = 4413) Product Code (test J6337J21 Performed at [facility] code = 4414) Laboratory Services - [facility] [address] [place] [id number] Free: [phone] A No. [id number] [facility] GLUCOSE (AUTOMATED)2022-10-12 16:49:16 Test Item Value Reference Range Interpretation Comments POCT GLU (test code = 2914289901) 183 mg/dL 70-110 H Lab Interpretation (test code = Abnormal 82351-5) [facility]ownN-TERMINAL [id number] 14:35:54 Test Item Value Reference Range Interpretation Comments NT-proBNP (test code = 06527 pg/mL <=450 H 0298907675) MALIK (test code = MALIK) Biotin has been reported to cause a negative bias, interpret results relative to patient's use of biotin. Lab Interpretation (test Abnormal code = 64348-2) [facility]ownTROPONIN [id number] 14:31:03 Test Item Value Reference Range Interpretation Comments TROPONIN I (test code = 0.296 ng/mL <=0.034 H 6043571274) MALIK (test code = MALIK) Reference (Normal) [...] biotin. Lab Interpretation Abnormal (test code = 15374-3) [facility]ptownLIPID PANEL (91416)(TOTAL CHOLESTEROL, TRIGLYCERIDES, HDL)2022-10-12 14:05:04 Test Item Value Reference Range Interpretation Comments CHOL (test code = 6177621760) 61 mg/dL 120-200 L HDL (test code = 1797689837) 19 mg/dL >=40 L HDLC RATIO (test code = 6342864748) 3.2 <=5.0 TRIG (test code = 4400393108) 82 mg/dL 30-170 LDL CHOL (test code = 30679-1) 26 mg/dL <=160 VLDL (test code = 8464307609) 16 mg/dL 5-60 Lab Interpretation (test code = Abnormal 01769-2) [facility]AUTOMATED)2022-10-12 12:46:09 Test Item Value Reference Range Interpretation Comments POCT GLU (test code = 3607325552) 139 mg/dL 70-110 H Lab Interpretation (test code = Abnormal 58220-4) [facility] METABOLIC PANEL (NA, K, CL, CO2, GLUCOSE, BUN, CREATININE, CA)2022-10-12 11:04:31 Test Item Value Reference Range Interpretation Comments NA (test code = 136 mmol/L 135-145 6399957621) K (test code = 4.9 mmol/L 3.5-5.0 8420189727) CL (test code = 99 mmol/L 98-108 6694801588) CO2 TOTAL (test code = 27 mmol/L 23-31 7910235247) AGAP (test code = 10 2-16 2855835135) BUN (test code = 54 mg/dL 7-23 H 5230345192) GLUCOSE (test code = 136 mg/dL 70-110 H 3802416971) CREATININE (test code = 4.66 mg/dL 0.60-1.25 H 3777303874) CALCIUM (test code = 9.0 mg/dL 8.6-10.6 2177609798) eGFR (test code = 12.3 mL/min/1.73m2 9094796853) MALIK (test code = MALIK) Association of [...] tests). Lab Interpretation Abnormal (test code = 01497-4) [facility]ownMAGNESIUM2023-05-15 11:04:31 Test Item Value Reference Range Interpretation Comments MAGNESIUM (test code = 4696657909) 1.9 mg/dL 1.7-2.4 Lab Interpretation (test code = Normal 41397-1) [facility]ownPHOSPHORUS2023-05-15 11:04:11 Test Item Value Reference Range Interpretation Comments PHOSPHORUS (test code = 7757203421) 3.8 mg/dL 2.5-5.0 Lab Interpretation (test code = Normal 21177-7) [facility]ownCB WITH [id number] 10:44:53 Test Item Value Reference Range Interpretation Comments WBC (test code = 5.14 See_Comment [Automated 6690-2) message] The sy stem which generated this result transmitted reference range : 4.20 - 10.70 10*3/?L. The reference range was not used to interpret this result as normal/abnormal . RBC (test code = 2.26 See_Comment L [Automated 809-8) message] The sy stem which generated this [...] RDW-SD (test code = 46.5 fL 38.5-51.6 07166-4) RDW-CV (test code = 14.5 % 12.1-15.4 788-0) PLT (test code = 129 See_Comment L [Automated 777-3) message] The sy stem which generated this result transmitted reference range : 150 - 328 10*3/ ?L. The reference r samantha was not used to interpret this result as normal/abnormal . MPV (test code = 9.7 fL 9.8-13.0 L 94767-3) NRBC/100 WBC (test 0.0 See_Comment [Automat ed code = 7150510568) message] The system which generated this result transmitted reference range : 0.0 - 10.0 /100 WBCs. The refer ence range was not u sed to interpret th is result as normal/abnormal . NRBC x10^3 (test code See_Comment [Auto mated = 3264194956) message] The s ystem which generated this result transmitted reference range : 10*3/?L. The reference range was not used to interpret this result as normal/abnormal . GRAN MAT (NEUT) % 70.2 % (test code = 770-8) IMM GRAN % (test code 0.40 % = 0360684838) LYMPH % (test code = 19.3 % 736-9) MONO % (test code = 7.4 % 5905-5) EOS % (test code = 2.3 % 713-8) BASO % (test code = 0.4 % 706-2) GRAN MAT x10^3(ANC) 3.61 10*3/uL 1.99-6.95 (test code = 3356215980) IMM GRAN x10^3 (test 0.00-0.06 code = 9395315056) LYMPH x10^3 (test code 0.99 10*3/uL 1.09-3.23 L = 731-0) MONO x10^3 (test code 0.38 10*3/uL 0.36-1.02 = 742-7) EOS x10^3 (test code = 0.12 10*3/uL 0.06-0.53 711-2) BASO x10^3 (test code 0.01-0.09 = 704-7) Lab Interpretation Abnormal (test code = 67146-5) [facility] GLUCOSE (AUTOMATED)2022-10-12 06:45:05 Test Item Value Reference Range Interpretation Comments POCT GLU (test code = 3083481557) 189 mg/dL 70-110 H Lab Interpretation (test code = Abnormal 67524-8) [facility] GLUCOSE (AUTOMATED)2022-10-12 01:24:37 Test Item Value Reference Range Interpretation Comments POCT GLU (test code = 0650137075) 145 mg/dL 70-110 H Lab Interpretation (test code = Abnormal 96526-0) [facility] GLUCOSE (AUTOMATED)2022-10-11 21:34:09 Test Item Value Reference Range Interpretation Comments POCT GLU (test code = 3138195401) 140 mg/dL 70-110 H Lab Interpretation (test code = Abnormal 36370-0) [facility] GLUCOSE (AUTOMATED)2022-10-11 17:09:13 Test Item Value Reference Range Interpretation Comments POCT GLU (test code = 9803015078) 174 mg/dL 70-110 H Lab Interpretation (test code = Abnormal 33333-3) [facility] GLUCOSE (AUTOMATED)2022-10-11 16:19:41 Test Item Value Reference Range Interpretation Comments POCT GLU (test code = 0502375583) 170 mg/dL 70-110 H Lab Interpretation (test code = Abnormal 54835-1) [facility] GLUCOSE (AUTOMATED)2022-10-11 14:32:59 Test Item Value Reference Range Interpretation Comments POCT GLU (test code = 2914050824) 151 mg/dL 70-110 H Lab Interpretation (test code = Abnormal 85423-2) [facility] GLUCOSE (AUTOMATED)2022-10-11 13:15:13 Test Item Value Reference Range Interpretation Comments POCT GLU (test code = 4989690968) 108 mg/dL 70-110 Lab Interpretation (test code = Normal 72585-7) [facility] GLUCOSE (AUTOMATED)2022-10-11 12:14:37 Test Item Value Reference Range Interpretation Comments POCT GLU (test code = 5159636965) 106 mg/dL 70-110 Lab Interpretation (test code = Normal 25375-2) [facility] GLUCOSE (AUTOMATED)2022-10-11 11:28:53 Test Item Value Reference Range Interpretation Comments POCT GLU (test code = 5706549214) 121 mg/dL 70-110 H Lab Interpretation (test code = Abnormal 39826-9) [facility] GLUCOSE (AUTOMATED)2022-10-11 09:43:44 Test Item Value Reference Range Interpretation Comments POCT GLU (test code = 9585034750) 129 mg/dL 70-110 H Lab Interpretation (test code = Abnormal 87059-6) [facility] 08[facility]46:38 Test Item Value Reference Range Interpretation Comments POCT GLU (test code = 0087863610) 101 mg/dL 70-110 Lab Interpretation (test code = Normal 52796-3) [facility] GLUCOSE (AUTOMATED)2022-10-11 07:38:35 Test Item Value Reference Range Interpretation Comments POCT GLU (test code = 9873732665) 102 mg/dL 70-110 Lab Interpretation (test code = Normal 61380-5) [facility] 06:20:36 Test Item Value Reference Range Interpretation Comments POCT GLU (test code = 6804821026) 112 mg/dL 70-110 H Lab Interpretation (test code = Abnormal 51462-1) [facility] GLUCOSE (AUTOMATED)2022-10-11 05:53:46 Test Item Value Reference Range Interpretation Comments POCT GLU (test code = 8367630386) 118 mg/dL 70-110 H Lab Interpretation (test code = Abnormal 59328-1) [facility]2022-10-11 04:25:32 Test Item Value Reference Range Interpretation Comments POCT GLU (test code = 8547078993) 127 mg/dL 70-110 H Lab Interpretation (test code = Abnormal 85319-3) [facility]2022-10-11 03:35:04 Test Item Value Reference Range Interpretation Comments POCT GLU (test code = 3794804890) 132 mg/dL 70-110 H Lab Interpretation (test code = Abnormal 75353-4) [facility] GLUCOSE (AUTOMATED)2022-10-11 02:10:18 Test Item Value Reference Range Interpretation Comments POCT GLU (test code = 3693642540) 155 mg/dL 70-110 H Lab Interpretation (test code = Abnormal 28620-3) [facility]GLYCOSYLATED HEMOGLOBIN (A1C)2022-10-11 01:39:22 Test Item Value Reference Range Interpretation Comments HGB A1C (test code = 7.2 % 4.0-5.7 H 4548-4) MALIK (test code = MALIK) Reference RangesNormal: <5.7%Prediabetes: 5.7 - 6.4%Diabetes: > 6.5% Lab Interpretation (test Abnormal code = 23162-5) [facility] GLUCOSE (AUTOMATED)2022-10-11 01:10:41 Test Item Value Reference Range Interpretation Comments POCT GLU (test code = 1568590957) 156 mg/dL 70-110 H Lab Interpretation (test code = Abnormal 70652-5) [facility] GLUCOSE (AUTOMATED)2022-10-10 23:31:02 Test Item Value Reference Range Interpretation Comments POCT GLU (test code = 4792343143) 144 mg/dL 70-110 H Lab Interpretation (test code = Abnormal 08402-0) [facility] GLUCOSE (AUTOMATED)2022-10-10 21:44:27 Test Item Value Reference Range Interpretation Comments POCT GLU (test code = 3423656727) 138 mg/dL 70-110 H Lab Interpretation (test code = Abnormal 92145-9) [facility] GLUCOSE (AUTOMATED)2022-10-10 21:27:07 Test Item Value Reference Range Interpretation Comments POCT GLU (test code = 1090934837) 150 mg/dL 70-110 H Lab Interpretation (test code = Abnormal 88139-4) [facility]AC PANEL 21 + LACTIC [id number] 21:01:36 Test Item Value Reference Range Interpretation Comments PH (test code = 7.31 7.32-7.42 L 1674549443) PCO2 LORENA (test code = 55 See_Comment H [Auto mated 2215041875) message] The sy stem which generated this result transmitted reference range : 41 - 51 mmHg. The reference range was not used to interpret this result as normal/abnormal . PO2 LORENA (test code = 16 See_Comment L [Autom ated 0277281363) message] The sy stem which generated this result transmitted reference range : 25 - 40 mmHg. The reference range was not used to interpret this result as normal/abnormal . HCO3 LORENA (test code = 27 See_Comment [Auto mated 9194415932) message] The sy stem which generated this result transmitted reference range : 24 - 28 mEq/L. The reference range was not used to interpret this result as normal/abnormal . AC VBE(BEAKER) (test 0.6 mEq/L code = 1842600426) THB LORENA (test code = 8.2 g/dL 13.5-18.0 LL 4973079829) %O2HB LORENA (test code = 22.2 % 52.0-63.0 L 2465879981) %COHB LORENA (test code = 0.1 % 0.0-1.5 1206382236) %METHB LORENA (test code = 1.5 % 0.4-1.5 0653691889) VOL%O2 LORNEA (test code = 2.6 % 6.0-12.0 L 4131441865) NA (test code = 132 mmol/L 135-145 L 9817806505) K+ (test code = 4.7 mmol/L 3.5-5.0 7761366182) AC CA IONZ (test code = 5.10 mg/dL 4.50-5.30 0170047168) GLUCOSE (test code = 153 mg/dL 70-110 H 3087275182) LACTIC ACID (test code 1.54 mmol/L 0.50-2.20 = 3790693830) Lab Interpretation Abnormal (test code = 81287-7) [facility]AUTOMATED)2022-10-10 20:33:33 Test Item Value Reference Range Interpretation Comments POCT GLU (test code = 5873230970) 137 mg/dL 70-110 H Lab Interpretation (test code = Abnormal 50386-8) [facility] [id number] 20:24:02 Test Item Value Reference Range Interpretation Comments NT-proBNP (test code = 50354 pg/mL <=450 H 8940015365) MALIK (test code = MALIK) Biotin has been reported to cause a negative bias, interpret results relative to patient's use of biotin. Lab Interpretation (test Abnormal code = 12635-3) [facility]. METABOLIC PANEL (06189)2022-10-10 20:18:35 Test Item Value Reference Range Interpretation Comments NA (test code = 136 mmol/L 135-145 8774123412) K (test code = 4.8 mmol/L 3.5-5.0 5514721581) CL (test code = 94 mmol/L 98-108 L 0097176424) CO2 TOTAL (test code = 33 mmol/L 23-31 H 5350612684) AGAP (test code = 9 2-16 0447899508) BUN (test code = 34 mg/dL 7-23 H 4884930153) GLUCOSE (test code = 62 mg/dL 70-110 L 0793469702) CREATININE (test code = 3.14 mg/dL 0.60-1.25 H 3369252157) TOTAL BILI (test code = 0.9 mg/dL 0.1-1.5 8290062554) CALCIUM (test code = 9.4 mg/dL 8.6-10.6 5666315723) T PROTEIN (test code = 6.6 g/dL 6.3-8.2 8404628973) ALBUMIN (test code = 3.6 g/dL 3.5-5.0 6568001584) ALK PHOS (test code = 334 U/L 34-122 H 6654932684) ALTv (test code = 38 U/L 5-50 1742-6) AST(SGOT) (test code = 38 U/L 13-40 7363701170) eGFR (test code = 19.3 mL/min/1.73m2 4269735687) MALIK (test code = MALIK) Association of [...] tests). Lab Interpretation Abnormal (test code = 90325-2) [facility]2022-10-10 19:48:15 Test Item Value Reference Range Interpretation Comments POCT GLU (test code = 4651362820) 50 mg/dL 70-110 LL Lab Interpretation (test code = Abnormal 65553-4) [facility]ownTROPON[facility] [id number] 19:44:14 Test Item Value Reference Range Interpretation Comments TROPONIN I (test code = 0.060 ng/mL <=0.034 H 3488246625) MALIK (test code = MALIK) Reference (Normal) [...] biotin. Lab Interpretation Abnormal (test code = 96708-5) [facility] WITH [id number] 19:23:50 Test Item Value Reference Range Interpretation Comments WBC (test code = 7.51 See_Comment [Automated 9090-2) message] The sy stem which generated this [...] RDW-SD (test code = 46.5 fL 38.5-51.6 55399-8) RDW-CV (test code = 14.4 % 12.1-15.4 788-0) PLT (test code = 131 See_Comment L [Automated 777-3) message] The sy stem which generated this result transmitted reference range : 150 - 328 10*3/ ?L. The reference r samantha was not used to interpret this result as normal/abnormal . MPV (test code = 9.2 fL 9.8-13.0 L 25769-6) NRBC/100 WBC (test 0.0 See_Comment [Automat ed code = 9534041722) message] The system which generated this result transmitted reference range : 0.0 - 10.0 /100 WBCs. The refer ence range was not u sed to interpret th is result as normal/abnormal . NRBC x10^3 (test code See_Comment [Auto mated = 1394336541) message] The s ystem which generated this result transmitted reference range : 10*3/?L. The reference range was not used to interpret this result as normal/abnormal . GRAN MAT (NEUT) % 80.2 % (test code = 770-8) IMM GRAN % (test code 0.50 % = 9755809123) LYMPH % (test code = 9.6 % 736-9) MONO % (test code = 8.8 % 5905-5) EOS % (test code = 0.4 % 713-8) BASO % (test code = 0.5 % 706-2) GRAN MAT x10^3(ANC) 6.02 10*3/uL 1.99-6.95 (test code = 6956121921) IMM GRAN x10^3 (test 0.04 10*3/uL 0.00-0.06 code = 8939177531) LYMPH x10^3 (test code 0.72 10*3/uL 1.09-3.23 L = 731-0) MONO x10^3 (test code 0.66 10*3/uL 0.36-1.02 = 742-7) EOS x10^3 (test code = 0.03 10*3/uL 0.06-0.53 L 711-2) BASO x10^3 (test code 0.04 10*3/uL 0.01-0.09 = 704-7) Lab Interpretation Abnormal (test code = 90364-4) [facility]2022-10-10 18:59:49 Test Item Value Reference Range Interpretation Comments POCT GLU (test code = 8412745938) 80 mg/dL 70-110 Lab Interpretation (test code = Normal 35961-7) [facility] [id number] 18:35:00 Test Item Value Reference Range Interpretation Comments Antibody Scrn (test Negative (01/02/22 1:35 code = Antibody Scrn) PM) [facility] [id number] 18:35:00 Test Item Value Reference Range Interpretation Comments ABO/Rh (test code = ABO/Rh) AB POS [facility] [employer] [id number] 18:35:00 Test Item Value Reference Range Interpretation Comments Antibody Scrn (test Negative (01/02/22 1:35 code = Antibody Scrn) PM) [facility] [employer] [id number] 18:35:00 Test Item Value Reference Range Interpretation Comments ABO/Rh (test code = ABO/Rh) AB POS [facility] [employer] [id number] 18:35:00 Test Item Value Reference Range Interpretation Comments Antibody Scrn (test Negative (01/02/22 1:35 code = Antibody Scrn) PM) [facility] [employer] [id number] 18:35:00 Test Item Value Reference Range Interpretation Comments ABO/Rh (test code = ABO/Rh) AB POS [facility] [employer] [id number] 18:35:00 Test Item Value Reference Range Interpretation Comments Antibody Scrn (test Negative (01/02/22 1:35 code = Antibody Scrn) PM) [facility] [employer] [id number] 18:35:00 Test Item Value Reference Range Interpretation Comments ABO/Rh (test code = ABO/Rh) AB POS [employer] [id number] 18:35:00 Test Item Value Reference Range Interpretation Comments Antibody Scrn (test Negative (01/02/22 1:35 code = Antibody Scrn) PM) [facility] [employer] [id number] 18:35:00 Test Item Value Reference Range Interpretation Comments ABO/Rh (test code = ABO/Rh) AB POS [employer] [id number] 18:35:00 Test Item Value Reference Range Interpretation Comments Antibody Scrn (test Negative (01/02/22 1:35 code = Antibody Scrn) PM) [facility] [employer] [id number] 18:35:00 Test Item Value Reference Range Interpretation Comments ABO/Rh (test code = ABO/Rh) AB POS [facility] [facility] [employer] [id number] 18:35:00 Test Item Value Reference Range Interpretation Comments Antibody Scrn (test Negative (01/02/22 1:35 code = Antibody Scrn) PM) [facility] [employer] [id number] 18:35:00 Test Item Value Reference Range Interpretation Comments ABO/Rh (test code = ABO/Rh) AB POS [employer] [id number] 18:13:00 Test Item Value Reference Range Interpretation Comments HS Troponin I (test code = HS Troponin 156 I) [facility] [employer] [id number] 18:13:00 Test Item Value Reference Range Interpretation Comments Glucose Lvl (test code = Glucose Lvl) 237 70-99 [facility] [employer] [id number] 18:13:00 Test Item Value Reference Range Interpretation Comments BUN (test code = BUN) 46 7-22 [facility] [id number] 18:13:00 Test Item Value Reference Range Interpretation Comments Creatinine Lvl (test code = Creatinine 5.92 0.50-1.40 Lvl) [facility] CenterProspectWiseCAROLIN[facility] [id number] 18:13:00 Test Item Value Reference Range Interpretation Comments Sodium Lvl (test code = Sodium Lvl) 134 135-145 [facility] [id number] 18:13:00 Test Item Value Reference Range Interpretation Comments Potassium Lvl (test code = Potassium 4.4 3.5-5.1 Lvl) [facility] [id number] 18:13:00 Test Item Value Reference Range Interpretation Comments Chloride Lvl (test code = Chloride Lvl) 98 95-109 [facility] [id number] 18:13:00 Test Item Value Reference Range Interpretation Comments HS Troponin I (test code = HS Troponin 156 I) [facility] [id number] 18:13:00 Test Item Value Reference Range Interpretation Comments Glucose Lvl (test code = Glucose Lvl) 237 70-99 [facility] [id number] 18:13:00 Test Item Value Reference Range Interpretation Comments BUN (test code = BUN) 46 7-22 [facility] [id number] 18:13:00 Test Item Value Reference Range Interpretation Comments Creatinine Lvl (test code = Creatinine 5.92 0.50-1.40 Lvl) [facility] [id number] 18:13:00 Test Item Value Reference Range Interpretation Comments Sodium Lvl (test code = Sodium Lvl) 134 135-145 [facility] [id number] 18:13:00 Test Item Value Reference Range Interpretation Comments Potassium Lvl (test code = Potassium 4.4 3.5-5.1 Lvl) [facility] [id number] 18:13:00 Test Item Value Reference Range Interpretation Comments Chloride Lvl (test code = Chloride Lvl) 98 95-109 [facility] [id number] 18:13:00 Test Item Value Reference Range Interpretation Comments CO2 (test code = CO2) 29 24-32 [facility] [id number] 18:13:00 Test Item Value Reference Range Interpretation Comments Calcium Lvl (test code = Calcium Lvl) 9.2 8.5-10.5 [facility] [employer] [id number] 18:13:00 Test Item Value Reference Range Interpretation Comments Total Protein (test code = Total 6.6 6.4-8.4 Protein) [facility] [id number] 18:13:00 Test Item Value Reference Range Interpretation Comments CO2 (test code = CO2) 29 24-32 [facility] [id number] 18:13:00 Test Item Value Reference Range Interpretation Comments Albumin Lvl (test code = Albumin Lvl) 3.1 3.5-5.0 [facility] [employer] [id number] 18:13:00 Test Item Value Reference Range Interpretation Comments ALT (test code = ALT) 36 See_Comment [Auto mated message] The system which ge nerated this result transmit swathi reference range : <=65. The reference range was not used to interpr et this result as deny l/abnormal. [facility] [employer] [id number] 18:13:00 Test Item Value Reference Range Interpretation Comments AST (test code = AST) 28 See_Comment [Auto mated message] The system which ge nerated this result transmit swathi reference range : <=37. The reference range was not used to interpr et this result as deny l/abnormal. [facility] [employer] [id number] 18:13:00 Test Item Value Reference Range Interpretation Comments Alk Phos (test code = Alk Phos) 231 39-136 [facility] [employer] [id number] 18:13:00 Test Item Value Reference Range Interpretation Comments Bili Total (test code = Bili Total) 1.0 0.2-1.3 [facility] [employer] [id number] 18:13:00 Test Item Value Reference Range Interpretation Comments AGAP (test code = AGAP) 11.4 10.0-20.0 [facility] [employer] [id number] 18:13:00 Test Item Value Reference Range Interpretation Comments B/C Ratio (test code = B/C Ratio) 8 1 6-25 [facility] [id number] 18:13:00 Test Item Value Reference Range Interpretation Comments Globulin (test code = Globulin) 3.5 2.7-4.2 [place] 510012-08-05 18:13:00 Test Item Value Reference Range Interpretation Comments A/G Ratio (test code = A/G Ratio) 0.9 1 0.7-1.6 [place] [address]-08-05 18:13:00 Test Item Value Reference Range Interpretation Comments eGFR (test code = eGFR) 9 [place] 510012-08-05 18:13:00 Test Item Value Reference Range Interpretation Comments Calcium Lvl (test code = Calcium Lvl) 9.2 8.5-10.5 [place] [address]-08-05 18:13:00 Test Item Value Reference Range Interpretation Comments WBC (test code = WBC) 4.8 3.7-10.4 [place] [address]-08-05 18:13:00 Test Item Value Reference Range Interpretation Comments RBC (test code = RBC) 1.93 4.70-6.10 [place] [address]-08-05 18:13:00 Test Item Value Reference Range Interpretation Comments Hgb (test code = Hgb) 7.2 14.0-18.0 [place] [address]-08-05 18:13:00 Test Item Value Reference Range Interpretation Comments Hct (test code = Hct) 21.2 42.0-54.0 [place] [address]-08-05 18:13:00 Test Item Value Reference Range Interpretation Comments MCV (test code = MCV) 110.1 80.0-94.0 [place] [address]-08-05 18:13:00 Test Item Value Reference Range Interpretation Comments MCH (test code = MCH) 37.1 pg 27.0-31.0 [place] [address]-08-05 18:13:00 Test Item Value Reference Range Interpretation Comments MCHC (test code = MCHC) 33.7 32.0-36.0 [place] [address]-08-05 18:13:00 Test Item Value Reference Range Interpretation Comments RDW (test code = RDW) 25.8 11.5-14.5 [place] [address]-08-05 18:13:00 Test Item Value Reference Range Interpretation Comments Platelet (test code = Platelet) 216 133-450 [place] 526272-08-05 18:13:00 Test Item Value Reference Range Interpretation Comments MPV (test code = MPV) 8.2 7.4-10.4 [facility]2022-08-05 18:13:00 Test Item Value Reference Range Interpretation Comments Total Protein (test code = Total 6.6 6.4-8.4 Protein) [address]08-05 18:13:00 Test Item Value Reference Range Interpretation Comments PT (test code = PT) 16.9 s 12.0-14.7 [place] [address]-08-05 18:13:00 Test Item Value Reference Range Interpretation Comments INR (test code = INR) 1.39 1 0.85-1.17 [place] [address]-08-05 18:13:00 Test Item Value Reference Range Interpretation Comments PTT (test code = PTT) 35.0 s 22.9-35.8 [place] [address]-08-05 18:13:00 Test Item Value Reference Range Interpretation Comments Plt Morph (test code = Normal (01/02/22 1:13 PM) Plt Morph) [place] [address]-08-05 18:13:00 Test Item Value Reference Range Interpretation Comments Segs (test code = Segs) 76.4 45.0-75.0 [place] [address]-08-05 18:13:00 Test Item Value Reference Range Interpretation Comments Lymphocytes (test code = Lymphocytes) 14.6 20.0-40.0 [place] [address]-08-05 18:13:00 Test Item Value Reference Range Interpretation Comments Monocytes (test code = Monocytes) 7.5 2.0-12.0 [address]08-05 18:13:00 Test Item Value Reference Range Interpretation Comments Eosinophils (test code = 0.6 See_Comment [A utomated message] The Eosinophils) system which ge nerated this result tra nsmitted reference range : <=4.0. The reference r samantha was not used to int erpret this result as normal/abnormal . [place] [address]-08-05 18:13:00 Test Item Value Reference Range Interpretation Comments Basophils (test code = 0.9 See_Comment [Aut omated message] The Basophils) system which ge nerated this result tra nsmitted reference range : <=1.0. The reference r samantha was not used to int erpret this result as normal/abnormal . [address]08-05 18:13:00 Test Item Value Reference Range Interpretation Comments Neutrophils # (test code = Neutrophils 3.7 1.5-8.1 #) [address]08-05 18:13:00 Test Item Value Reference Range Interpretation Comments Albumin Lvl (test code = Albumin Lvl) 3.1 3.5-5.0 [address]08-05 18:13:00 Test Item Value Reference Range Interpretation Comments Lymphocytes # (test code = Lymphocytes 0.7 1.0-5.5 #) [address]08-05 18:13:00 Test Item Value Reference Range Interpretation Comments Monocytes # (test code 0.4 See_Comment [Aut omated message] The = Monocytes #) system which generated this result tra nsmitted reference range : <=0.8. The reference r samantha was not used to int erpret this result as normal/abnormal . [address]08-05 18:13:00 Test Item Value Reference Range Interpretation Comments Anisocyte (test code = 2+ *ABN*(01/02/22 1:13 Anisocyte) PM) [address]08-05 18:13:00 Test Item Value Reference Range Interpretation Comments Macrocyte (test code = 2+ *ABN*(01/02/22 1:13 Macrocyte) PM) [address]08-05 18:13:00 Test Item Value Reference Range Interpretation Comments ALT (test code = ALT) 36 See_Comment [Auto mated message] The system which ge nerated this result transmit swathi reference range : <=65. The reference range was not used to interpr et this result as deny l/abnormal. [address]08-05 18:13:00 Test Item Value Reference Range Interpretation Comments AST (test code = AST) 28 See_Comment [Auto mated message] The system which ge nerated this result transmit swathi reference range : <=37. The reference range was not used to interpr et this result as deny l/abnormal. [address]08-05 18:13:00 Test Item Value Reference Range Interpretation Comments Alk Phos (test code = Alk Phos) 231 39-136 [facility]2022-08-05 18:13:00 Test Item Value Reference Range Interpretation Comments Bili Total (test code = Bili Total) 1.0 0.2-1.3 [place] 510012-08-05 18:13:00 Test Item Value Reference Range Interpretation Comments AGAP (test code = AGAP) 11.4 10.0-20.0 [place] 510012-08-05 18:13:00 Test Item Value Reference Range Interpretation Comments B/C Ratio (test code = B/C Ratio) 8 1 6-25 [place] [address]-08-05 18:13:00 Test Item Value Reference Range Interpretation Comments Globulin (test code = Globulin) 3.5 2.7-4.2 [place] [address]-08-05 18:13:00 Test Item Value Reference Range Interpretation Comments A/G Ratio (test code = A/G Ratio) 0.9 1 0.7-1.6 [place] [address]-08-05 18:13:00 Test Item Value Reference Range Interpretation Comments eGFR (test code = eGFR) 9 [place] [address]-08-05 18:13:00 Test Item Value Reference Range Interpretation Comments WBC (test code = WBC) 4.8 3.7-10.4 [place] [address]-08-05 18:13:00 Test Item Value Reference Range Interpretation Comments RBC (test code = RBC) 1.93 4.70-6.10 [place] 526272-08-05 18:13:00 Test Item Value Reference Range Interpretation Comments Hgb (test code = Hgb) 7.2 14.0-18.0 [place] [address]-08-05 18:13:00 Test Item Value Reference Range Interpretation Comments Hct (test code = Hct) 21.2 42.0-54.0 [place] [address]-08-05 18:13:00 Test Item Value Reference Range Interpretation Comments MCV (test code = MCV) 110.1 80.0-94.0 [place] [address]-08-05 18:13:00 Test Item Value Reference Range Interpretation Comments MCH (test code = MCH) 37.1 pg 27.0-31.0 [place] [address]-08-05 18:13:00 Test Item Value Reference Range Interpretation Comments MCHC (test code = MCHC) 33.7 32.0-36.0 [place] [address]-08-05 18:13:00 Test Item Value Reference Range Interpretation Comments RDW (test code = RDW) 25.8 11.5-14.5 [place] [address]-08-05 18:13:00 Test Item Value Reference Range Interpretation Comments Platelet (test code = Platelet) 216 133-450 [place] 526272-08-05 18:13:00 Test Item Value Reference Range Interpretation Comments MPV (test code = MPV) 8.2 7.4-10.4 [place] [address]-08-05 18:13:00 Test Item Value Reference Range Interpretation Comments PT (test code = PT) 16.9 s 12.0-14.7 [place] [address]-08-05 18:13:00 Test Item Value Reference Range Interpretation Comments INR (test code = INR) 1.39 1 0.85-1.17 [place] 526272-08-05 18:13:00 Test Item Value Reference Range Interpretation Comments PTT (test code = PTT) 35.0 s 22.9-35.8 [place] [address]-08-05 18:13:00 Test Item Value Reference Range Interpretation Comments Plt Morph (test code = Normal (01/02/22 1:13 PM) Plt Morph) [place] 526272-08-05 18:13:00 Test Item Value Reference Range Interpretation Comments Segs (test code = Segs) 76.4 45.0-75.0 [place] 526272-08-05 18:13:00 Test Item Value Reference Range Interpretation Comments Lymphocytes (test code = Lymphocytes) 14.6 20.0-40.0 [place] [address]-08-05 18:13:00 Test Item Value Reference Range Interpretation Comments Monocytes (test code = Monocytes) 7.5 2.0-12.0 [place] [address]-08-05 18:13:00 Test Item Value Reference Range Interpretation Comments Eosinophils (test code = 0.6 See_Comment [A utomated message] The Eosinophils) system which ge nerated this result tra nsmitted reference range : <=4.0. The reference r samantha was not used to int erpret this result as normal/abnormal . [facility] [id number] 18:13:00 Test Item Value Reference Range Interpretation Comments Basophils (test code = 0.9 See_Comment [Aut omated message] The Basophils) system which ge nerated this result tra nsmitted reference range : <=1.0. The reference r samantha was not used to int erpret this result as normal/abnormal . [facility] [id number] 18:13:00 Test Item Value Reference Range Interpretation Comments Neutrophils # (test code = Neutrophils 3.7 1.5-8.1 #) [facility] [id number] 18:13:00 Test Item Value Reference Range Interpretation Comments Lymphocytes # (test code = Lymphocytes 0.7 1.0-5.5 #) [facility] [id number] 18:13:00 Test Item Value Reference Range Interpretation Comments Monocytes # (test code 0.4 See_Comment [Aut omated message] The = Monocytes #) system which generated this result tra nsmitted reference range : <=0.8. The reference r samantha was not used to int erpret this result as normal/abnormal . [facility] CenterDuvmtuaGMOUOQNMPR5304-10-53 18:13:00 Test Item Value Reference Range Interpretation Comments Anisocyte (test code = 2+ *ABN*(01/02/22 1:13 Anisocyte) PM) [facility] CenterNapvmghNSYLGSDXKA4860-61-29 18:13:00 Test Item Value Reference Range Interpretation Comments Macrocyte (test code = 2+ *ABN*(01/02/22 1:13 Macrocyte) PM) [facility] [id number] 18:13:00 Test Item Value Reference Range Interpretation Comments HS Troponin I (test code = HS Troponin 156 I) [facility]2022-08-05 18:13:00 Test Item Value Reference Range Interpretation Comments Glucose Lvl (test code = Glucose Lvl) 237 70-99 [facility]2022-08-05 18:13:00 Test Item Value Reference Range Interpretation Comments BUN (test code = BUN) 46 7-22 [facility]2022-08-05 18:13:00 Test Item Value Reference Range Interpretation Comments Creatinine Lvl (test code = Creatinine 5.92 0.50-1.40 Lvl) [address]08-05 18:13:00 Test Item Value Reference Range Interpretation Comments Sodium Lvl (test code = Sodium Lvl) 134 135-145 [place] 510012-08-05 18:13:00 Test Item Value Reference Range Interpretation Comments Potassium Lvl (test code = Potassium 4.4 3.5-5.1 Lvl) [address]08-05 18:13:00 Test Item Value Reference Range Interpretation Comments Chloride Lvl (test code = Chloride Lvl) 98 95-109 [address]08-05 18:13:00 Test Item Value Reference Range Interpretation Comments CO2 (test code = CO2) 29 24-32 [place] [address]-08-05 18:13:00 Test Item Value Reference Range Interpretation Comments Calcium Lvl (test code = Calcium Lvl) 9.2 8.5-10.5 [address]08-05 18:13:00 Test Item Value Reference Range Interpretation Comments Total Protein (test code = Total 6.6 6.4-8.4 Protein) [address]08-05 18:13:00 Test Item Value Reference Range Interpretation Comments Albumin Lvl (test code = Albumin Lvl) 3.1 3.5-5.0 [place] 510012-08-05 18:13:00 Test Item Value Reference Range Interpretation Comments ALT (test code = ALT) 36 See_Comment [Auto mated message] The system which [employer] nerated this result transmit swathi reference range : <=65. The reference range was not used to interpr et this result as deny l/abnormal. [address]08-05 18:13:00 Test Item Value Reference Range Interpretation Comments AST (test code = AST) 28 See_Comment [Auto mated message] The system which [employer] nerated this result transmit swathi reference range : <=37. The reference range was not used to interpr et this result as deny l/abnormal. [address]08-05 18:13:00 Test Item Value Reference Range Interpretation Comments Alk Phos (test code = Alk Phos) 231 39-136 [address]08-05 18:13:00 Test Item Value Reference Range Interpretation Comments Bili Total (test code = Bili Total) 1.0 0.2-1.3 [address]08-05 18:13:00 Test Item Value Reference Range Interpretation Comments AGAP (test code = AGAP) 11.4 10.0-20.0 [address]08-05 18:13:00 Test Item Value Reference Range Interpretation Comments B/C Ratio (test code = B/C Ratio) 8 1 6-25 [address]08-05 18:13:00 Test Item Value Reference Range Interpretation Comments Globulin (test code = Globulin) 3.5 2.7-4.[address]08-05 18:13:00 Test Item Value Reference Range Interpretation Comments A/G Ratio (test code = A/G Ratio) 0.9 1 0.7-1.6 [address]08-05 18:13:00 Test Item Value Reference Range Interpretation Comments eGFR (test code = eGFR) 9 [address]08-05 18:13:00 Test Item Value Reference Range Interpretation Comments WBC (test code = WBC) 4.8 3.7-10.4 [address]08-05 18:13:00 Test Item Value Reference Range Interpretation Comments RBC (test code = RBC) 1.93 4.70-6.10 [address]08-05 18:13:00 Test Item Value Reference Range Interpretation Comments Hgb (test code = Hgb) 7.2 14.0-18.0 [address]08-05 18:13:00 Test Item Value Reference Range Interpretation Comments Hct (test code = Hct) 21.2 42.0-54.0 [address]08-05 18:13:00 Test Item Value Reference Range Interpretation Comments MCV (test code = MCV) 110.1 80.0-94.0 [address]08-05 18:13:00 Test Item Value Reference Range Interpretation Comments MCH (test code = MCH) 37.1 pg 27.0-31.0 [address]08-05 18:13:00 Test Item Value Reference Range Interpretation Comments MCHC (test code = MCHC) 33.7 32.0-36.0 [place] 526272-08-05 18:13:00 Test Item Value Reference Range Interpretation Comments RDW (test code = RDW) 25.8 11.5-14.5 [place] 526272-08-05 18:13:00 Test Item Value Reference Range Interpretation Comments Platelet (test code = Platelet) 216 133-450 [facility] CenterMnitfnhDTZKPLPXHE2160-50-87 18:13:00 Test Item Value Reference Range Interpretation Comments MPV (test code = MPV) 8.2 7.4-10.4 [place] [address]-08-05 18:13:00 Test Item Value Reference Range Interpretation Comments PT (test code = PT) 16.9 s 12.0-14.7 [place] [address]-08-05 18:13:00 Test Item Value Reference Range Interpretation Comments INR (test code = INR) 1.39 1 0.85-1.17 [place] 526272-08-05 18:13:00 Test Item Value Reference Range Interpretation Comments PTT (test code = PTT) 35.0 s 22.9-35.8 [place] 526272-08-05 18:13:00 Test Item Value Reference Range Interpretation Comments Plt Morph (test code = Normal (01/02/22 1:13 PM) Plt Morph) [place] [address]-08-05 18:13:00 Test Item Value Reference Range Interpretation Comments Segs (test code = Segs) 76.4 45.0-75.0 [place] 526272-08-05 18:13:00 Test Item Value Reference Range Interpretation Comments Lymphocytes (test code = Lymphocytes) 14.6 20.0-40.0 [place] [address]-08-05 18:13:00 Test Item Value Reference Range Interpretation Comments Monocytes (test code = Monocytes) 7.5 2.0-12.0 [place] [address]-08-05 18:13:00 Test Item Value Reference Range Interpretation Comments Eosinophils (test code = 0.6 See_Comment [A utomated message] The Eosinophils) system which ge nerated this result tra nsmitted reference range : <=4.0. The reference r samantha was not used to int erpret this result as normal/abnormal . [facility] CenterKvvidgpLCASNLEEGG5144-66-74 18:13:00 Test Item Value Reference Range Interpretation Comments Basophils (test code = 0.9 See_Comment [Aut omated message] The Basophils) system which ge nerated this result tra nsmitted reference range : <=1.0. The reference r samantha was not used to int erpret this result as normal/abnormal . [facility] CenterJxabaajILQJVDCETE1014-65-29 18:13:00 Test Item Value Reference Range Interpretation Comments Neutrophils # (test code = Neutrophils 3.7 1.5-8.1 #) [facility] CenterXbstgguZMMWHCEECM3831-71-69 18:13:00 Test Item Value Reference Range Interpretation Comments Lymphocytes # (test code = Lymphocytes 0.7 1.0-5.5 #) [facility] CenterQhssxxjTKBQOVILGX6345-74-38 18:13:00 Test Item Value Reference Range Interpretation Comments Monocytes # (test code 0.4 See_Comment [Aut omated message] The = Monocytes #) system which generated this result tra nsmitted reference range : <=0.8. The reference r samantha was not used to int erpret this result as normal/abnormal . [facility] CenterMiikvmcRZRNALUXXX1051-83-95 18:13:00 Test Item Value Reference Range Interpretation Comments Anisocyte (test code = 2+ *ABN*(01/02/22 1:13 Anisocyte) PM) [facility] CenterFrkrxrnQHRJZHLDLP5644-77-16 18:13:00 Test Item Value Reference Range Interpretation Comments Macrocyte (test code = 2+ *ABN*(01/02/22 1:13 Macrocyte) PM) [facility] [id number] 18:13:00 Test Item Value Reference Range Interpretation Comments HS Troponin I (test code = HS Troponin 156 I) [facility] [id number] 18:13:00 Test Item Value Reference Range Interpretation Comments Glucose Lvl (test code = Glucose Lvl) 237 70-99 [facility] [id number] 18:13:00 Test Item Value Reference Range Interpretation Comments BUN (test code = BUN) 46 7-22 [facility] [id number] 18:13:00 Test Item Value Reference Range Interpretation Comments Creatinine Lvl (test code = Creatinine 5.92 0.50-1.40 Lvl) [address]08-05 18:13:00 Test Item Value Reference Range Interpretation Comments Sodium Lvl (test code = Sodium Lvl) 134 135-145 [place] 510012-08-05 18:13:00 Test Item Value Reference Range Interpretation Comments Potassium Lvl (test code = Potassium 4.4 3.5-5.1 Lvl) [place] [address]-08-05 18:13:00 Test Item Value Reference Range Interpretation Comments Chloride Lvl (test code = Chloride Lvl) 98 95-109 [address]08-05 18:13:00 Test Item Value Reference Range Interpretation Comments CO2 (test code = CO2) 29 24-32 [address]08-05 18:13:00 Test Item Value Reference Range Interpretation Comments Calcium Lvl (test code = Calcium Lvl) 9.2 8.5-10.5 [address]08-05 18:13:00 Test Item Value Reference Range Interpretation Comments Total Protein (test code = Total 6.6 6.4-8.4 Protein) [address]08-05 18:13:00 Test Item Value Reference Range Interpretation Comments Albumin Lvl (test code = Albumin Lvl) 3.1 3.5-5.0 [place] [address]-08-05 18:13:00 Test Item Value Reference Range Interpretation Comments ALT (test code = ALT) 36 See_Comment [Auto mated message] The system which ge nerated this result transmit swathi reference range : <=65. The reference range was not used to interpr et this result as deny l/abnormal. [place] [address]-08-05 18:13:00 Test Item Value Reference Range Interpretation Comments AST (test code = AST) 28 See_Comment [Auto mated message] The system which ge nerated this result transmit swathi reference range : <=37. The reference range was not used to interpr et this result as deny l/abnormal. [address]08-05 18:13:00 Test Item Value Reference Range Interpretation Comments Alk Phos (test code = Alk Phos) 231 39-136 [place] [address]-08-05 18:13:00 Test Item Value Reference Range Interpretation Comments Bili Total (test code = Bili Total) 1.0 0.2-1.3 [place] [address]-08-05 18:13:00 Test Item Value Reference Range Interpretation Comments AGAP (test code = AGAP) 11.4 10.0-20.0 [place] [address]-08-05 18:13:00 Test Item Value Reference Range Interpretation Comments B/C Ratio (test code = B/C Ratio) 8 1 6-25 [place] [address]-08-05 18:13:00 Test Item Value Reference Range Interpretation Comments Globulin (test code = Globulin) 3.5 2.7-4.2 [place] [address]-08-05 18:13:00 Test Item Value Reference Range Interpretation Comments A/G Ratio (test code = A/G Ratio) 0.9 1 0.7-1.6 [place] [address]-08-05 18:13:00 Test Item Value Reference Range Interpretation Comments eGFR (test code = eGFR) 9 [place] 526272-08-05 18:13:00 Test Item Value Reference Range Interpretation Comments WBC (test code = WBC) 4.8 3.7-10.4 [place] [address]-08-05 18:13:00 Test Item Value Reference Range Interpretation Comments RBC (test code = RBC) 1.93 4.70-6.10 [place] [address]-08-05 18:13:00 Test Item Value Reference Range Interpretation Comments Hgb (test code = Hgb) 7.2 14.0-18.0 [place] [address]-08-05 18:13:00 Test Item Value Reference Range Interpretation Comments Hct (test code = Hct) 21.2 42.0-54.0 [place] [address]-08-05 18:13:00 Test Item Value Reference Range Interpretation Comments MCV (test code = MCV) 110.1 80.0-94.0 [place] [address]-08-05 18:13:00 Test Item Value Reference Range Interpretation Comments MCH (test code = MCH) 37.1 pg 27.0-31.0 [place] [address]-08-05 18:13:00 Test Item Value Reference Range Interpretation Comments MCHC (test code = MCHC) 33.7 32.0-36.0 [facility]LdsnkntUJALCMZXKL5213-69-18 18:13:00 Test Item Value Reference Range Interpretation Comments RDW (test code = RDW) 25.8 11.5-14.5 [facility] CenterEiefqabDUOHJYJHJB4957-75-72 18:13:00 Test Item Value Reference Range Interpretation Comments Platelet (test code = Platelet) 216 133-450 [facility] CenterNjvydttIKVTNGDQIG1129-97-95 18:13:00 Test Item Value Reference Range Interpretation Comments MPV (test code = MPV) 8.2 7.4-10.4 [facility] CenterVmhzwfaIDQXRDDLYG8277-17-95 18:13:00 Test Item Value Reference Range Interpretation Comments PT (test code = PT) 16.9 s 12.0-14.7 [facility] CenterIbnswsjAPEUKRVLZL3514-71-69 18:13:00 Test Item Value Reference Range Interpretation Comments INR (test code = INR) 1.39 1 0.85-1.17 [facility] CenterDqyqakuSUNEEOLBOS3243-62-91 18:13:00 Test Item Value Reference Range Interpretation Comments PTT (test code = PTT) 35.0 s 22.9-35.8 [facility] CenterSzzdfsyKTTVVOTAWY8572-68-68 18:13:00 Test Item Value Reference Range Interpretation Comments Plt Morph (test code = Normal (01/02/22 1:13 PM) Plt Morph) [facility] CenterOqnwpqbHXCQWJVILA9255-50-04 18:13:00 Test Item Value Reference Range Interpretation Comments Segs (test code = Segs) 76.4 45.0-75.0 [facility] CenterJzbzntwEXIKTLSWGR9081-60-10 18:13:00 Test Item Value Reference Range Interpretation Comments Lymphocytes (test code = Lymphocytes) 14.6 20.0-40.0 [place] 526272-08-05 18:13:00 Test Item Value Reference Range Interpretation Comments Monocytes (test code = Monocytes) 7.5 2.0-12.0 [place] [address]-08-05 18:13:00 Test Item Value Reference Range Interpretation Comments Eosinophils (test code = 0.6 See_Comment [A utomated message] The Eosinophils) system which ge nerated this result tra nsmitted reference range : <=4.0. The reference r samantha was not used to int erpret this result as normal/abnormal . [facility] CenterAeqabisHWLSAESUEP8257-57-44 18:13:00 Test Item Value Reference Range Interpretation Comments Basophils (test code = 0.9 See_Comment [Aut omated message] The Basophils) system which ge nerated this result tra nsmitted reference range : <=1.0. The reference r samantha was not used to int erpret this result as normal/abnormal . [facility] CenterWcdcfbaONTAVPMUYY5608-78-14 18:13:00 Test Item Value Reference Range Interpretation Comments Neutrophils # (test code = Neutrophils 3.7 1.5-8.1 #) [facility] CenterGkwjomwAJKICHGXXD9255-62-88 18:13:00 Test Item Value Reference Range Interpretation Comments Lymphocytes # (test code = Lymphocytes 0.7 1.0-5.5 #) [facility] CenterQssckptTSYIQLMQLZ4135-68-71 18:13:00 Test Item Value Reference Range Interpretation Comments Monocytes # (test code 0.4 See_Comment [Aut omated message] The = Monocytes #) system which generated this result tra nsmitted reference range : <=0.8. The reference r samantha was not used to int erpret this result as normal/abnormal . [facility] CenterFlhinijBBJSVPCQYR9714-84-09 18:13:00 Test Item Value Reference Range Interpretation Comments Anisocyte (test code = 2+ *ABN*(01/02/22 1:13 Anisocyte) PM) [facility] CenterJiyycdtVKDRBUQZPV9834-36-64 18:13:00 Test Item Value Reference Range Interpretation Comments Macrocyte (test code = 2+ *ABN*(01/02/22 1:13 Macrocyte) PM) [facility] [id number] 18:13:00 Test Item Value Reference Range Interpretation Comments HS Troponin I (test code = HS Troponin 156 I) [facility] [id number] 18:13:00 Test Item Value Reference Range Interpretation Comments Glucose Lvl (test code = Glucose Lvl) 237 70-99 [facility]2022-08-05 18:13:00 Test Item Value Reference Range Interpretation Comments BUN (test code = BUN) 46 7-22 [facility]2022-08-05 18:13:00 Test Item Value Reference Range Interpretation Comments Creatinine Lvl (test code = Creatinine 5.92 0.50-1.40 Lvl) [place] 510012-08-05 18:13:00 Test Item Value Reference Range Interpretation Comments Sodium Lvl (test code = Sodium Lvl) 134 135-145 [place] [address]-08-05 18:13:00 Test Item Value Reference Range Interpretation Comments Potassium Lvl (test code = Potassium 4.4 3.5-5.1 Lvl) [address]08-05 18:13:00 Test Item Value Reference Range Interpretation Comments Chloride Lvl (test code = Chloride Lvl) 98 95-109 [place] [address]-08-05 18:13:00 Test Item Value Reference Range Interpretation Comments CO2 (test code = CO2) 29 24-32 [address]08-05 18:13:00 Test Item Value Reference Range Interpretation Comments Calcium Lvl (test code = Calcium Lvl) 9.2 8.5-10.5 [place] [address]-08-05 18:13:00 Test Item Value Reference Range Interpretation Comments Total Protein (test code = Total 6.6 6.4-8.4 Protein) [address]08-05 18:13:00 Test Item Value Reference Range Interpretation Comments Albumin Lvl (test code = Albumin Lvl) 3.1 3.5-5.0 [address]08-05 18:13:00 Test Item Value Reference Range Interpretation Comments ALT (test code = ALT) 36 See_Comment [Auto mated message] The system which ge nerated this result transmit swathi reference range : <=65. The reference range was not used to interpr et this result as deny l/abnormal. [address]08-05 18:13:00 Test Item Value Reference Range Interpretation Comments AST (test code = AST) 28 See_Comment [Auto mated message] The system which ge nerated this result transmit swathi reference range : <=37. The reference range was not used to interpr et this result as deny l/abnormal. [place] [address]-08-05 18:13:00 Test Item Value Reference Range Interpretation Comments Alk Phos (test code = Alk Phos) 231 39-136 [place] [address]-08-05 18:13:00 Test Item Value Reference Range Interpretation Comments Bili Total (test code = Bili Total) 1.0 0.2-1.3 [place] [address]-08-05 18:13:00 Test Item Value Reference Range Interpretation Comments AGAP (test code = AGAP) 11.4 10.0-20.0 [place] 510012-08-05 18:13:00 Test Item Value Reference Range Interpretation Comments B/C Ratio (test code = B/C Ratio) 8 1 6-25 [place] [address]-08-05 18:13:00 Test Item Value Reference Range Interpretation Comments Globulin (test code = Globulin) 3.5 2.7-4.2 [place] [address]-08-05 18:13:00 Test Item Value Reference Range Interpretation Comments A/G Ratio (test code = A/G Ratio) 0.9 1 0.7-1.6 [place] [address]-08-05 18:13:00 Test Item Value Reference Range Interpretation Comments eGFR (test code = eGFR) 9 [place] 526272-08-05 18:13:00 Test Item Value Reference Range Interpretation Comments WBC (test code = WBC) 4.8 3.7-10.4 [place] [address]-08-05 18:13:00 Test Item Value Reference Range Interpretation Comments RBC (test code = RBC) 1.93 4.70-6.10 [place] [address]-08-05 18:13:00 Test Item Value Reference Range Interpretation Comments Hgb (test code = Hgb) 7.2 14.0-18.0 [place]272-08-05 18:13:00 Test Item Value Reference Range Interpretation Comments Hct (test code = Hct) 21.2 42.0-54.0 [place] [address]-08-05 18:13:00 Test Item Value Reference Range Interpretation Comments MCV (test code = MCV) 110.1 80.0-94.0 [place] [address]-08-05 18:13:00 Test Item Value Reference Range Interpretation Comments MCH (test code = MCH) 37.1 pg 27.0-31.0 [place] [address]-08-05 18:13:00 Test Item Value Reference Range Interpretation Comments MCHC (test code = MCHC) 33.7 32.0-36.0 [place] [address]-08-05 18:13:00 Test Item Value Reference Range Interpretation Comments RDW (test code = RDW) 25.8 11.5-14.5 [place] [address]-08-05 18:13:00 Test Item Value Reference Range Interpretation Comments Platelet (test code = Platelet) 216 133-450 [place] 526272-08-05 18:13:00 Test Item Value Reference Range Interpretation Comments MPV (test code = MPV) 8.2 7.4-10.4 [place] [address]-08-05 18:13:00 Test Item Value Reference Range Interpretation Comments PT (test code = PT) 16.9 s 12.0-14.7 [place] [address]-08-05 18:13:00 Test Item Value Reference Range Interpretation Comments INR (test code = INR) 1.39 1 0.85-1.17 [place] [address]-08-05 18:13:00 Test Item Value Reference Range Interpretation Comments PTT (test code = PTT) 35.0 s 22.9-35.8 [place] [address]-08-05 18:13:00 Test Item Value Reference Range Interpretation Comments Plt Morph (test code = Normal (01/02/22 1:13 PM) Plt Morph) [place] [address]-08-05 18:13:00 Test Item Value Reference Range Interpretation Comments Segs (test code = Segs) 76.4 45.0-75.0 [place] [address]-08-05 18:13:00 Test Item Value Reference Range Interpretation Comments Lymphocytes (test code = Lymphocytes) 14.6 20.0-40.0 [place] [address]-08-05 18:13:00 Test Item Value Reference Range Interpretation Comments Monocytes (test code = Monocytes) 7.5 2.0-12.0 [place] [address]-08-05 18:13:00 Test Item Value Reference Range Interpretation Comments Eosinophils (test code = 0.6 See_Comment [A utomated message] The Eosinophils) system which ge nerated this result tra nsmitted reference range : <=4.0. The reference r samantha was not used to int erpret this result as normal/abnormal . [place]272-08-05 18:13:00 Test Item Value Reference Range Interpretation Comments Basophils (test code = 0.9 See_Comment [Aut omated message] The Basophils) system which ge nerated this result tra nsmitted reference range : <=1.0. The reference r samantha was not used to int erpret this result as normal/abnormal . [place]272-08-05 18:13:00 Test Item Value Reference Range Interpretation Comments Neutrophils # (test code = Neutrophils 3.7 1.5-8.1 #) [facility] CenterXqgpzthRJWVINZYNO3291-77-78 18:13:00 Test Item Value Reference Range Interpretation Comments Lymphocytes # (test code = Lymphocytes 0.7 1.0-5.5 #) [facility] CenterWeofwjyBOAYSZAYJW5169-79-94 18:13:00 Test Item Value Reference Range Interpretation Comments Monocytes # (test code 0.4 See_Comment [Aut omated message] The = Monocytes #) system which generated this result tra nsmitted reference range : <=0.8. The reference r samantha was not used to int erpret this result as normal/abnormal . [facility] CenterEzaojxtIFZQOHZTJY2892-23-26 18:13:00 Test Item Value Reference Range Interpretation Comments Anisocyte (test code = 2+ *ABN*(01/02/22 1:13 Anisocyte) PM) [place]272-08-05 18:13:00 Test Item Value Reference Range Interpretation Comments Macrocyte (test code = 2+ *ABN*(01/02/22 1:13 Macrocyte) PM) [facility] [id number] 18:13:00 Test Item Value Reference Range Interpretation Comments HS Troponin I (test code = HS Troponin 156 I) [facility]2022-08-05 18:13:00 Test Item Value Reference Range Interpretation Comments Glucose Lvl (test code = Glucose Lvl) 237 70-99 [facility]2022-08-05 18:13:00 Test Item Value Reference Range Interpretation Comments BUN (test code = BUN) 46 7-22 [place] 510012-08-05 18:13:00 Test Item Value Reference Range Interpretation Comments Creatinine Lvl (test code = Creatinine 5.92 0.50-1.40 Lvl) [facility]2022-08-05 18:13:00 Test Item Value Reference Range Interpretation Comments Sodium Lvl (test code = Sodium Lvl) 134 135-145 [facility] [id number] 18:13:00 Test Item Value Reference Range Interpretation Comments Potassium Lvl (test code = Potassium 4.4 3.5-5.1 Lvl) [place] 510012-08-05 18:13:00 Test Item Value Reference Range Interpretation Comments Chloride Lvl (test code = Chloride Lvl) 98 95-109 [facility] [id number] 18:13:00 Test Item Value Reference Range Interpretation Comments CO2 (test code = CO2) 29 24-32 [facility] [id number] 18:13:00 Test Item Value Reference Range Interpretation Comments Calcium Lvl (test code = Calcium Lvl) 9.2 8.5-10.5 [facility] [id number] 18:13:00 Test Item Value Reference Range Interpretation Comments Total Protein (test code = Total 6.6 6.4-8.4 Protein) [facility] [id number] 18:13:00 Test Item Value Reference Range Interpretation Comments Albumin Lvl (test code = Albumin Lvl) 3.1 3.5-5.0 [facility] [id number] 18:13:00 Test Item Value Reference Range Interpretation Comments ALT (test code = ALT) 36 See_Comment [Auto mated message] The system which ge nerated this result transmit swathi reference range : <=65. The reference range was not used to interpr et this result as deny l/abnormal. [facility] [id number] 18:13:00 Test Item Value Reference Range Interpretation Comments AST (test code = AST) 28 See_Comment [Auto mated message] The system which ge nerated this result transmit swathi reference range : <=37. The reference range was not used to interpr et this result as deny l/abnormal. [facility] [id number] 18:13:00 Test Item Value Reference Range Interpretation Comments Alk Phos (test code = Alk Phos) 231 39-136 [facility] [id number] 18:13:00 Test Item Value Reference Range Interpretation Comments Bili Total (test code = Bili Total) 1.0 0.2-1.3 [address]08-05 18:13:00 Test Item Value Reference Range Interpretation Comments AGAP (test code = AGAP) 11.4 10.0-20.0 [address]08-05 18:13:00 Test Item Value Reference Range Interpretation Comments B/C Ratio (test code = B/C Ratio) 8 1 6-25 [address]08-05 18:13:00 Test Item Value Reference Range Interpretation Comments Globulin (test code = Globulin) 3.5 2.7-4.[address]08-05 18:13:00 Test Item Value Reference Range Interpretation Comments A/G Ratio (test code = A/G Ratio) 0.9 1 0.7-1.6 [address]08-05 18:13:00 Test Item Value Reference Range Interpretation Comments eGFR (test code = eGFR) 9 [place] [address]-08-05 18:13:00 Test Item Value Reference Range Interpretation Comments WBC (test code = WBC) 4.8 3.7-10.4 [address]08-05 18:13:00 Test Item Value Reference Range Interpretation Comments RBC (test code = RBC) 1.93 4.70-6.10 [address]08-05 18:13:00 Test Item Value Reference Range Interpretation Comments Hgb (test code = Hgb) 7.2 14.0-18.0 [address]08-05 18:13:00 Test Item Value Reference Range Interpretation Comments Hct (test code = Hct) 21.2 42.0-54.0 [address]08-05 18:13:00 Test Item Value Reference Range Interpretation Comments MCV (test code = MCV) 110.1 80.0-94.0 [address]08-05 18:13:00 Test Item Value Reference Range Interpretation Comments MCH (test code = MCH) 37.1 pg 27.0-31.0 [place] [address]-08-05 18:13:00 Test Item Value Reference Range Interpretation Comments MCHC (test code = MCHC) 33.7 32.0-36.0 [place] [address]-08-05 18:13:00 Test Item Value Reference Range Interpretation Comments RDW (test code = RDW) 25.8 11.5-14.5 [place] [address]-08-05 18:13:00 Test Item Value Reference Range Interpretation Comments Platelet (test code = Platelet) 216 133-450 [place] 526272-08-05 18:13:00 Test Item Value Reference Range Interpretation Comments MPV (test code = MPV) 8.2 7.4-10.4 [place] [address]-08-05 18:13:00 Test Item Value Reference Range Interpretation Comments PT (test code = PT) 16.9 s 12.0-14.7 [place] [address]-08-05 18:13:00 Test Item Value Reference Range Interpretation Comments INR (test code = INR) 1.39 1 0.85-1.17 [place] [address]-08-05 18:13:00 Test Item Value Reference Range Interpretation Comments PTT (test code = PTT) 35.0 s 22.9-35.8 [place] [address]-08-05 18:13:00 Test Item Value Reference Range Interpretation Comments Plt Morph (test code = Normal (01/02/22 1:13 PM) Plt Morph) [place] 526272-08-05 18:13:00 Test Item Value Reference Range Interpretation Comments Segs (test code = Segs) 76.4 45.0-75.0 [place] [address]-08-05 18:13:00 Test Item Value Reference Range Interpretation Comments Lymphocytes (test code = Lymphocytes) 14.6 20.0-40.0 [place] [address]-08-05 18:13:00 Test Item Value Reference Range Interpretation Comments Monocytes (test code = Monocytes) 7.5 2.0-12.0 [place] [address]-08-05 18:13:00 Test Item Value Reference Range Interpretation Comments Eosinophils (test code = 0.6 See_Comment [A utomated message] The Eosinophils) system which ge nerated this result tra nsmitted reference range : <=4.0. The reference r samantha was not used to int erpret this result as normal/abnormal . [place] 526272-08-05 18:13:00 Test Item Value Reference Range Interpretation Comments Basophils (test code = 0.9 See_Comment [Aut omated message] The Basophils) system which ge nerated this result tra nsmitted reference range : <=1.0. The reference r samantha was not used to int erpret this result as normal/abnormal . [id number] 18:13:00 Test Item Value Reference Range Interpretation Comments Neutrophils # (test code = Neutrophils 3.7 1.5-8.1 #) [facility] Ho[id number] 18:13:00 Test Item Value Reference Range Interpretation Comments Lymphocytes # (test code = Lymphocytes 0.7 1.0-5.5 #) [facility] HospitalOlcryrdKRWPYFTAZA2712-13-38 18:13:00 Test Item Value Reference Range Interpretation Comments Monocytes # (test code 0.4 See_Comment [Aut omated message] The = Monocytes #) system which generated this result tra nsmitted reference range : <=0.8. The reference r samantha was not used to int erpret this result as normal/abnormal . [facility] Hos[id number] 18:13:00 Test Item Value Reference Range Interpretation Comments Anisocyte (test code = 2+ *ABN*(01/02/22 1:13 Anisocyte) PM) [facility]woodTkkwolqKCVZAIMIKN2454-24-13 18:13:00 Test Item Value Reference Range Interpretation Comments Macrocyte (test code = 2+ *ABN*(01/02/22 1:13 Macrocyte) PM) [facility] [id number] 18:13:00 Test Item Value Reference Range Interpretation Comments HS Troponin I (test code = HS Troponin 156 I) [facility] [id number] 18:13:00 Test Item Value Reference Range Interpretation Comments Glucose Lvl (test code = Glucose Lvl) 237 70-99 [facility] [id number] 18:13:00 Test Item Value Reference Range Interpretation Comments BUN (test code = BUN) 46 7-22 [facility] [id number] 18:13:00 Test Item Value Reference Range Interpretation Comments Creatinine Lvl (test code = Creatinine 5.92 0.50-1.40 Lvl) [facility] CenterAn[facility] [id number] 18:13:00 Test Item Value Reference Range Interpretation Comments Sodium Lvl (test code = Sodium Lvl) 134 135-145 [place] 510012-08-05 18:13:00 Test Item Value Reference Range Interpretation Comments Potassium Lvl (test code = Potassium 4.4 3.5-5.1 Lvl) [place] [address]-08-05 18:13:00 Test Item Value Reference Range Interpretation Comments Chloride Lvl (test code = Chloride Lvl) 98 95-109 [place] [address]-08-05 18:13:00 Test Item Value Reference Range Interpretation Comments CO2 (test code = CO2) 29 24-32 [address]08-05 18:13:00 Test Item Value Reference Range Interpretation Comments Calcium Lvl (test code = Calcium Lvl) 9.2 8.5-10.5 [address]08-05 18:13:00 Test Item Value Reference Range Interpretation Comments Total Protein (test code = Total 6.6 6.4-8.4 Protein) [address]08-05 18:13:00 Test Item Value Reference Range Interpretation Comments Albumin Lvl (test code = Albumin Lvl) 3.1 3.5-5.0 [address]08-05 18:13:00 Test Item Value Reference Range Interpretation Comments ALT (test code = ALT) 36 See_Comment [Auto mated message] The system which ge nerated this result transmit swathi reference range : <=65. The reference range was not used to interpr et this result as deny l/abnormal. [address]08-05 18:13:00 Test Item Value Reference Range Interpretation Comments AST (test code = AST) 28 See_Comment [Auto mated message] The system which ge nerated this result transmit swathi reference range : <=37. The reference range was not used to interpr et this result as deny l/abnormal. [facility] [id number] 18:13:00 Test Item Value Reference Range Interpretation Comments Alk Phos (test code = Alk Phos) 231 39-136 [place] [address]-08-05 18:13:00 Test Item Value Reference Range Interpretation Comments Bili Total (test code = Bili Total) 1.0 0.2-1.3 [address]08-05 18:13:00 Test Item Value Reference Range Interpretation Comments AGAP (test code = AGAP) 11.4 10.0-20.0 [place] 510012-08-05 18:13:00 Test Item Value Reference Range Interpretation Comments B/C Ratio (test code = B/C Ratio) 8 1 6-25 [place] [address]-08-05 18:13:00 Test Item Value Reference Range Interpretation Comments Globulin (test code = Globulin) 3.5 2.7-4.2 [place] 510012-08-05 18:13:00 Test Item Value Reference Range Interpretation Comments A/G Ratio (test code = A/G Ratio) 0.9 1 0.7-1.6 [place] [address]-08-05 18:13:00 Test Item Value Reference Range Interpretation Comments eGFR (test code = eGFR) 9 [place] 526272-08-05 18:13:00 Test Item Value Reference Range Interpretation Comments WBC (test code = WBC) 4.8 3.7-10.4 [place] 526272-08-05 18:13:00 Test Item Value Reference Range Interpretation Comments RBC (test code = RBC) 1.93 4.70-6.10 [place] [address]-08-05 18:13:00 Test Item Value Reference Range Interpretation Comments Hgb (test code = Hgb) 7.2 14.0-18.0 [place] [address]-08-05 18:13:00 Test Item Value Reference Range Interpretation Comments Hct (test code = Hct) 21.2 42.0-54.0 [place] [address]-08-05 18:13:00 Test Item Value Reference Range Interpretation Comments MCV (test code = MCV) 110.1 80.0-94.0 [place] [address]-08-05 18:13:00 Test Item Value Reference Range Interpretation Comments MCH (test code = MCH) 37.1 pg 27.0-31.0 [place] [address]-08-05 18:13:00 Test Item Value Reference Range Interpretation Comments MCHC (test code = MCHC) 33.7 32.0-36.0 [place] [address]-08-05 18:13:00 Test Item Value Reference Range Interpretation Comments RDW (test code = RDW) 25.8 11.5-14.5 [place] [address]-08-05 18:13:00 Test Item Value Reference Range Interpretation Comments Platelet (test code = Platelet) 216 133-450 [place] 526272-08-05 18:13:00 Test Item Value Reference Range Interpretation Comments MPV (test code = MPV) 8.2 7.4-10.4 [place] [address]-08-05 18:13:00 Test Item Value Reference Range Interpretation Comments PT (test code = PT) 16.9 s 12.0-14.7 [place] [address]-08-05 18:13:00 Test Item Value Reference Range Interpretation Comments INR (test code = INR) 1.39 1 0.85-1.17 [place] [address]-08-05 18:13:00 Test Item Value Reference Range Interpretation Comments PTT (test code = PTT) 35.0 s 22.9-35.8 [place] [address]-08-05 18:13:00 Test Item Value Reference Range Interpretation Comments Plt Morph (test code = Normal (01/02/22 1:13 PM) Plt Morph) [facility] CenterKnbutvyIWHYEVORNO0190-68-75 18:13:00 Test Item Value Reference Range Interpretation Comments Segs (test code = Segs) 76.4 45.0-75.0 [place] [address]-08-05 18:13:00 Test Item Value Reference Range Interpretation Comments Lymphocytes (test code = Lymphocytes) 14.6 20.0-40.0 [place] [address]-08-05 18:13:00 Test Item Value Reference Range Interpretation Comments Monocytes (test code = Monocytes) 7.5 2.0-12.0 [place] [address]-08-05 18:13:00 Test Item Value Reference Range Interpretation Comments Eosinophils (test code = 0.6 See_Comment [A utomated message] The Eosinophils) system which ge nerated this result tra nsmitted reference range : <=4.0. The reference r samantha was not used to int erpret this result as normal/abnormal . [place] [address]-08-05 18:13:00 Test Item Value Reference Range Interpretation Comments Basophils (test code = 0.9 See_Comment [Aut omated message] The Basophils) system which ge nerated this result tra nsmitted reference range : <=1.0. The reference r samantha was not used to int erpret this result as normal/abnormal . [place] 526272-08-05 18:13:00 Test Item Value Reference Range Interpretation Comments Neutrophils # (test code = Neutrophils 3.7 1.5-8.1 #) [place] 526272-08-05 18:13:00 Test Item Value Reference Range Interpretation Comments Lymphocytes # (test code = Lymphocytes 0.7 1.0-5.5 #) [place] [address]-08-05 18:13:00 Test Item Value Reference Range Interpretation Comments Monocytes # (test code 0.4 See_Comment [Aut omated message] The = Monocytes #) system which generated this result tra nsmitted reference range : <=0.8. The reference r samantha was not used to int erpret this result as normal/abnormal . [place] 526272-08-05 18:13:00 Test Item Value Reference Range Interpretation Comments Anisocyte (test code = 2+ *ABN*(01/02/22 1:13 Anisocyte) PM) [place] [address]-08-05 18:13:00 Test Item Value Reference Range Interpretation Comments Macrocyte (test code = 2+ *ABN*(01/02/22 1:13 Macrocyte) PM) [facility]2022-07-19 09:29:00 Test Item Value Reference Range Interpretation Comments Glucose Lvl (test code = Glucose Lvl) 199 70-99 [facility] [id number] 09:29:00 Test Item Value Reference Range Interpretation Comments BUN (test code = BUN) 28 7-22 [place] 510012-07-19 09:29:00 Test Item Value Reference Range Interpretation Comments Creatinine Lvl (test code = Creatinine 4.84 0.50-1.40 Lvl) [facility]2022-07-19 09:29:00 Test Item Value Reference Range Interpretation Comments Sodium Lvl (test code = Sodium Lvl) 134 135-145 [facility]2022-07-19 09:29:00 Test Item Value Reference Range Interpretation Comments Potassium Lvl (test code = Potassium 4.3 3.5-5.1 Lvl) [id number] 09:29:00 Test Item Value Reference Range Interpretation Comments Chloride Lvl (test code = Chloride Lvl) 100 95-109 [place] 510012-07-19 09:29:00 Test Item Value Reference Range Interpretation Comments CO2 (test code = CO2) 28 24-32 [place] 510012-07-19 09:29:00 Test Item Value Reference Range Interpretation Comments Calcium Lvl (test code = Calcium Lvl) 9.4 8.5-10.5 [place] 510012-07-19 09:29:00 Test Item Value Reference Range Interpretation Comments Total Protein (test code = Total 6.6 6.4-8.4 Protein) [place] 510012-07-19 09:29:00 Test Item Value Reference Range Interpretation Comments Albumin Lvl (test code = Albumin Lvl) 3.0 3.5-5.0 [place] 510012-07-19 09:29:00 Test Item Value Reference Range Interpretation Comments ALT (test code = ALT) 92 See_Comment [Auto mated message] The system which ge nerated this result transmit swathi reference range : <=65. The reference range was not used to interpr et this result as deny l/abnormal. [facility] [id number] 09:29:00 Test Item Value Reference Range Interpretation Comments AST (test code = AST) 123 See_Comment [Auto mated message] The system which ge nerated this result transmit swathi reference range : <=37. The reference range was not used to interpr et this result as deny l/abnormal. [place] 510012-07-19 09:29:00 Test Item Value Reference Range Interpretation Comments Alk Phos (test code = Alk Phos) 272 39-136 [place] [address]-07-19 09:29:00 Test Item Value Reference Range Interpretation Comments Bili Total (test code = Bili Total) 0.9 0.2-1.3 [place] 510012-07-19 09:29:00 Test Item Value Reference Range Interpretation Comments AGAP (test code = AGAP) 10.3 10.0-20.0 [facility] [id number] 09:29:00 Test Item Value Reference Range Interpretation Comments B/C Ratio (test code = B/C Ratio) 6 1 6-25 [place] 510012-07-19 09:29:00 Test Item Value Reference Range Interpretation Comments Globulin (test code = Globulin) 3.6 2.7-4.2 [facility]2022-07-19 09:29:00 Test Item Value Reference Range Interpretation Comments A/G Ratio (test code = A/G Ratio) 0.8 1 0.7-1.6 [place] [address]-07-19 09:29:00 Test Item Value Reference Range Interpretation Comments eGFR (test code = eGFR) 12 [facility]2022-07-19 09:29:00 Test Item Value Reference Range Interpretation Comments Phosphorus (test code = Phosphorus) 4.3 2.5-4.5 [facility] CenterZvshsnmQKIFMNBVEN2208-31-76 09:29:00 Test Item Value Reference Range Interpretation Comments WBC (test code = WBC) 4.7 3.7-10.4 [facility] CenterEgalbynRGNWXJMTBN4332-59-90 09:29:00 Test Item Value Reference Range Interpretation Comments RBC (test code = RBC) 2.14 4.70-6.10 [facility] CenterAzsfnzcHSUVGQUCUW6382-07-11 09:29:00 Test Item Value Reference Range Interpretation Comments Hgb (test code = Hgb) 7.6 14.0-18.0 [facility] CenterDwladyvQNNFPRDBZP7212-28-16 09:29:00 Test Item Value Reference Range Interpretation Comments Hct (test code = Hct) 22.8 42.0-54.0 [place] 526272-07-19 09:29:00 Test Item Value Reference Range Interpretation Comments MCV (test code = MCV) 106.6 80.0-94.0 [place] 526272-07-19 09:29:00 Test Item Value Reference Range Interpretation Comments MCH (test code = MCH) 35.6 pg 27.0-31.0 [place] 526272-07-19 09:29:00 Test Item Value Reference Range Interpretation Comments MCHC (test code = MCHC) 33.4 32.0-36.0 [place] 526272-07-19 09:29:00 Test Item Value Reference Range Interpretation Comments RDW (test code = RDW) 24.3 11.5-14.5 [place] 526272-07-19 09:29:00 Test Item Value Reference Range Interpretation Comments Platelet (test code = Platelet) 148 133-450 [place] 526272-07-19 09:29:00 Test Item Value Reference Range Interpretation Comments MPV (test code = MPV) 8.1 7.4-10.4 [facility] CenterPztjwemJRWAXLGMHQ5249-07-83 09:29:00 Test Item Value Reference Range Interpretation Comments D-Dimer (test code = D-Dimer) 3.63 [place] 526272-07-19 09:29:00 Test Item Value Reference Range Interpretation Comments Segs (test code = Segs) 74.8 45.0-75.0 [place] 526272-07-19 09:29:00 Test Item Value Reference Range Interpretation Comments Lymphocytes (test code = Lymphocytes) 15.5 20.0-40.0 [facility] CenterJdqsszySITXJPPOJB5687-18-90 09:29:00 Test Item Value Reference Range Interpretation Comments Monocytes (test code = Monocytes) 9.5 2.0-12.0 [place] 526272-07-19 09:29:00 Test Item Value Reference Range Interpretation Comments Basophils (test code = 0.2 See_Comment [Aut omated message] The Basophils) system which ge nerated this result tra nsmitted reference range : <=1.0. The reference r samantha was not used to int erpret this result as normal/abnormal . [facility] CenterFijkxlhIURZDWNVMS7702-89-57 09:29:00 Test Item Value Reference Range Interpretation Comments Neutrophils # (test code = Neutrophils 3.5 1.5-8.1 #) [facility] CenterScopqzcKWKHSDXBUB5247-80-62 09:29:00 Test Item Value Reference Range Interpretation Comments Lymphocytes # (test code = Lymphocytes 0.7 1.0-5.5 #) [place] 526272-07-19 09:29:00 Test Item Value Reference Range Interpretation Comments Monocytes # (test code 0.4 See_Comment [Aut omated message] The = Monocytes #) system which generated this result tra nsmitted reference range : <=0.8. The reference r samantha was not used to int erpret this result as normal/abnormal . [place] 526272-07-19 09:29:00 Test Item Value Reference Range Interpretation Comments Macrocyte (test code = 1+ *ABN*(12/16/21 Macrocyte) 4:29 AM) [facility]woodIporfzfVFCDLWZHML0855-73-04 09:29:00 Test Item Value Reference Range Interpretation Comments C-REACTIVE PROTEIN (test code = 19.0 C-REACTIVE PROTEIN) [place] 510012-07-19 09:29:00 Test Item Value Reference Range Interpretation Comments Glucose Lvl (test code = Glucose Lvl) 199 70-99 [place] 510012-07-19 09:29:00 Test Item Value Reference Range Interpretation Comments BUN (test code = BUN) 28 - [facility]2022-07-19 09:29:00 Test Item Value Reference Range Interpretation Comments Creatinine Lvl (test code = Creatinine 4.84 0.50-1.40 Lvl) [facility]2022-07-19 09:29:00 Test Item Value Reference Range Interpretation Comments Sodium Lvl (test code = Sodium Lvl) 134 135-145 [place] 510012-07-19 09:29:00 Test Item Value Reference Range Interpretation Comments Potassium Lvl (test code = Potassium 4.3 3.5-5.1 Lvl) [facility]2022-07-19 09:29:00 Test Item Value Reference Range Interpretation Comments Chloride Lvl (test code = Chloride Lvl) 100 95-109 [place] 510012-07-19 09:29:00 Test Item Value Reference Range Interpretation Comments CO2 (test code = CO2) 28 24-32 [place] 510012-07-19 09:29:00 Test Item Value Reference Range Interpretation Comments Calcium Lvl (test code = Calcium Lvl) 9.4 8.5-10.5 [facility]2022-07-19 09:29:00 Test Item Value Reference Range Interpretation Comments Total Protein (test code = Total 6.6 6.4-8.4 Protein) [facility]2022-07-19 09:29:00 Test Item Value Reference Range Interpretation Comments Albumin Lvl (test code = Albumin Lvl) 3.0 3.5-5.0 [place] 510012-07-19 09:29:00 Test Item Value Reference Range Interpretation Comments ALT (test code = ALT) 92 See_Comment [Auto mated message] The system which ge nerated this result transmit swathi reference range : <=65. The reference range was not used to interpr et this result as deny l/abnormal. [place] 510012-07-19 09:29:00 Test Item Value Reference Range Interpretation Comments Glucose Lvl (test code = Glucose Lvl) 199 70-99 [place] 510012-07-19 09:29:00 Test Item Value Reference Range Interpretation Comments BUN (test code = BUN) 28 7-22 [place] 510012-07-19 09:29:00 Test Item Value Reference Range Interpretation Comments Creatinine Lvl (test code = Creatinine 4.84 0.50-1.40 Lvl) [place] 510012-07-19 09:29:00 Test Item Value Reference Range Interpretation Comments Sodium Lvl (test code = Sodium Lvl) 134 135-145 [place] 510012-07-19 09:29:00 Test Item Value Reference Range Interpretation Comments AST (test code = AST) 123 See_Comment [Auto mated message] The system which ge nerated this result transmit swathi reference range : <=37. The reference range was not used to interpr et this result as deny l/abnormal. [facility] [id number] 09:29:00 Test Item Value Reference Range Interpretation Comments Potassium Lvl (test code = Potassium 4.3 3.5-5.1 Lvl) [place] 510012-07-19 09:29:00 Test Item Value Reference Range Interpretation Comments Chloride Lvl (test code = Chloride Lvl) 100 95-109 [facility] [id number] 09:29:00 Test Item Value Reference Range Interpretation Comments CO2 (test code = CO2) 28 24-32 [place] 510012-07-19 09:29:00 Test Item Value Reference Range Interpretation Comments Calcium Lvl (test code = Calcium Lvl) 9.4 8.5-10.5 [place] 510012-07-19 09:29:00 Test Item Value Reference Range Interpretation Comments Total Protein (test code = Total 6.6 6.4-8.4 Protein) [place] 510012-07-19 09:29:00 Test Item Value Reference Range Interpretation Comments Albumin Lvl (test code = Albumin Lvl) 3.0 3.5-5.0 [facility] [employer] [id number] 09:29:00 Test Item Value Reference Range Interpretation Comments ALT (test code = ALT) 92 See_Comment [Auto mated message] The system which ge nerated this result transmit swathi reference range : <=65. The reference range was not used to interpr et this result as deny l/abnormal. [facility] [employer] [id number] 09:29:00 Test Item Value Reference Range Interpretation Comments AST (test code = AST) 123 See_Comment [Auto mated message] The system which ge nerated this result transmit swathi reference range : <=37. The reference range was not used to interpr et this result as deny l/abnormal. [facility] [employer] [id number] 09:29:00 Test Item Value Reference Range Interpretation Comments Alk Phos (test code = Alk Phos) 272 39-136 [facility] [employer] [id number] 09:29:00 Test Item Value Reference Range Interpretation Comments Bili Total (test code = Bili Total) 0.9 0.2-1.3 [facility] [employer] [id number] 09:29:00 Test Item Value Reference Range Interpretation Comments Alk Phos (test code = Alk Phos) 272 39-136 [employer] [id number] 09:29:00 Test Item Value Reference Range Interpretation Comments AGAP (test code = AGAP) 10.3 10.0-20.0 [facility] [employer] [id number] 09:29:00 Test Item Value Reference Range Interpretation Comments B/C Ratio (test code = B/C Ratio) 6 1 6-25 [facility] [employer] [id number] 09:29:00 Test Item Value Reference Range Interpretation Comments Globulin (test code = Globulin) 3.6 2.7-4.2 [facility] [employer] [id number] 09:29:00 Test Item Value Reference Range Interpretation Comments A/G Ratio (test code = A/G Ratio) 0.8 1 0.7-1.6 [facility] [employer] [id number] 09:29:00 Test Item Value Reference Range Interpretation Comments eGFR (test code = eGFR) 12 [facility] [employer] [id number] 09:29:00 Test Item Value Reference Range Interpretation Comments Phosphorus (test code = Phosphorus) 4.3 2.5-4.5 [facility]woodBqxilfdUDXFLYDTAR9436-34-46 09:29:00 Test Item Value Reference Range Interpretation Comments WBC (test code = WBC) 4.7 3.7-10.4 [facility]ksBYEZTHLSNU1331-88-27 09:29:00 Test Item Value Reference Range Interpretation Comments RBC (test code = RBC) 2.14 4.70-6.10 [facility] KingwoodCckwjxeRKSZTWENZI7460-41-19 09:29:00 Test Item Value Reference Range Interpretation Comments Hgb (test code = Hgb) 7.6 14.0-18.0 [facility] KingwoodBbhpmbiENTXKPVORI6072-26-11 09:29:00 Test Item Value Reference Range Interpretation Comments Hct (test code = Hct) 22.8 42.0-54.0 [facility]2022-07-19 09:29:00 Test Item Value Reference Range Interpretation Comments Bili Total (test code = Bili Total) 0.9 0.2-1.3 [facility] KingwoodTlmyuucTJEIHSJSGA2094-64-12 09:29:00 Test Item Value Reference Range Interpretation Comments MCV (test code = MCV) 106.6 80.0-94.0 [facility] KingwoodWlejkkiOGJGXUIMFI3704-60-16 09:29:00 Test Item Value Reference Range Interpretation Comments MCH (test code = MCH) 35.6 pg 27.0-31.0 [facility] CenterWpktrteOFFXGVZQYV3294-05-90 09:29:00 Test Item Value Reference Range Interpretation Comments MCHC (test code = MCHC) 33.4 32.0-36.0 [facility] HospitalZyiwozpTNWUMWMAQT6673-04-50 09:29:00 Test Item Value Reference Range Interpretation Comments RDW (test code = RDW) 24.3 11.5-14.5 [facility] KingwoodAosmtxkWLQWAEGKWU7843-72-69 09:29:00 Test Item Value Reference Range Interpretation Comments Platelet (test code = Platelet) 148 133-450 [facility] HospitalMtjdbkgQAMDXBMUNR4285-85-55 09:29:00 Test Item Value Reference Range Interpretation Comments MPV (test code = MPV) 8.1 7.4-10.4 [facility] HospitalDnmgoaqMGPNPOGYFT2386-15-68 09:29:00 Test Item Value Reference Range Interpretation Comments D-Dimer (test code = D-Dimer) 3.63 [facility] CenterBnczphxNXVNCEVEVN8140-07-89 09:29:00 Test Item Value Reference Range Interpretation Comments Segs (test code = Segs) 74.8 45.0-75.0 [facility] CenterUcqrdivCHAZCINCMV5810-05-27 09:29:00 Test Item Value Reference Range Interpretation Comments Lymphocytes (test code = Lymphocytes) 15.5 20.0-40.0 [facility] CenterSwvitvtNJWBSCHHYU4664-84-93 09:29:00 Test Item Value Reference Range Interpretation Comments Monocytes (test code = Monocytes) 9.5 2.0-12.0 [facility]2022-07-19 09:29:00 Test Item Value Reference Range Interpretation Comments AGAP (test code = AGAP) 10.3 10.0-20.0 [facility] CenterYvrkonaTZNGHBBIAP6312-47-72 09:29:00 Test Item Value Reference Range Interpretation Comments Basophils (test code = 0.2 See_Comment [Aut omated message] The Basophils) system which ge nerated this result tra nsmitted reference range : <=1.0. The reference r samantha was not used to int erpret this result as normal/abnormal . [facility] CenterCgnujedPRXCQMFQQK7831-27-17 09:29:00 Test Item Value Reference Range Interpretation Comments Neutrophils # (test code = Neutrophils 3.5 1.5-8.1 #) [facility] CenterPuhbwcjIKPQXFUJIX8199-40-46 09:29:00 Test Item Value Reference Range Interpretation Comments Lymphocytes # (test code = Lymphocytes 0.7 1.0-5.5 #) [facility] CenterXptlxwoFMJTKLCHPP5333-29-00 09:29:00 Test Item Value Reference Range Interpretation Comments Monocytes # (test code 0.4 See_Comment [Aut omated message] The = Monocytes #) system which generated this result tra nsmitted reference range : <=0.8. The reference r samantha was not used to int erpret this result as normal/abnormal . [facility] CenterPgcbwbhQZVNCNDOQZ9060-89-26 09:29:00 Test Item Value Reference Range Interpretation Comments Macrocyte (test code = 1+ *ABN*(12/16/21 Macrocyte) 4:29 AM) [place] 820012-07-19 09:29:00 Test Item Value Reference Range Interpretation Comments C-REACTIVE PROTEIN (test code = 19.0 C-REACTIVE PROTEIN) [facility]2022-07-19 09:29:00 Test Item Value Reference Range Interpretation Comments B/C Ratio (test code = B/C Ratio) 6 1 6-25 [facility]2022-07-19 09:29:00 Test Item Value Reference Range Interpretation Comments Globulin (test code = Globulin) 3.6 2.7-4.2 [facility]2022-07-19 09:29:00 Test Item Value Reference Range Interpretation Comments A/G Ratio (test code = A/G Ratio) 0.8 1 0.7-1.6 [place] 510012-07-19 09:29:00 Test Item Value Reference Range Interpretation Comments eGFR (test code = eGFR) 12 [facility]2022-07-19 09:29:00 Test Item Value Reference Range Interpretation Comments Phosphorus (test code = Phosphorus) 4.3 2.5-4.5 [facility] CenterHlvbvnbJJVEJFAREQ7698-51-21 09:29:00 Test Item Value Reference Range Interpretation Comments WBC (test code = WBC) 4.7 3.7-10.4 [facility] CenterUxjrxehHPULLUJKHQ7075-37-09 09:29:00 Test Item Value Reference Range Interpretation Comments RBC (test code = RBC) 2.14 4.70-6.10 [facility] CenterPztztcfFPJZFTUWCU1761-77-67 09:29:00 Test Item Value Reference Range Interpretation Comments Hgb (test code = Hgb) 7.6 14.0-18.0 [facility] CenterKtbuplgXXOAKPTCFC4054-52-22 09:29:00 Test Item Value Reference Range Interpretation Comments Hct (test code = Hct) 22.8 42.0-54.0 [place] 526272-07-19 09:29:00 Test Item Value Reference Range Interpretation Comments MCV (test code = MCV) 106.6 80.0-94.0 [facility] CenterZzyajnoFVFMMLFVLC3188-45-88 09:29:00 Test Item Value Reference Range Interpretation Comments MCH (test code = MCH) 35.6 pg 27.0-31.0 [facility] CenterQfqxwkwMUDGNXWKIG3044-78-46 09:29:00 Test Item Value Reference Range Interpretation Comments MCHC (test code = MCHC) 33.4 32.0-36.0 [place] [address]-07-19 09:29:00 Test Item Value Reference Range Interpretation Comments RDW (test code = RDW) 24.3 11.5-14.5 [place] [address]-07-19 09:29:00 Test Item Value Reference Range Interpretation Comments Platelet (test code = Platelet) 148 133-450 [place] [address]-07-19 09:29:00 Test Item Value Reference Range Interpretation Comments MPV (test code = MPV) 8.1 7.4-10.4 [place] [address]-07-19 09:29:00 Test Item Value Reference Range Interpretation Comments D-Dimer (test code = D-Dimer) 3.63 [place] [address]-07-19 09:29:00 Test Item Value Reference Range Interpretation Comments Segs (test code = Segs) 74.8 45.0-75.0 [place] [address]-07-19 09:29:00 Test Item Value Reference Range Interpretation Comments Lymphocytes (test code = Lymphocytes) 15.5 20.0-40.0 [place] 526272-07-19 09:29:00 Test Item Value Reference Range Interpretation Comments Monocytes (test code = Monocytes) 9.5 2.0-12.0 [place] [address]-07-19 09:29:00 Test Item Value Reference Range Interpretation Comments Basophils (test code = 0.2 See_Comment [Aut omated message] The Basophils) system which ge nerated this result tra nsmitted reference range : <=1.0. The reference r samantha was not used to int erpret this result as normal/abnormal . [place] 526272-07-19 09:29:00 Test Item Value Reference Range Interpretation Comments Neutrophils # (test code = Neutrophils 3.5 1.5-8.1 #) [place] [address]-07-19 09:29:00 Test Item Value Reference Range Interpretation Comments Lymphocytes # (test code = Lymphocytes 0.7 1.0-5.5 #) [place] [address]-07-19 09:29:00 Test Item Value Reference Range Interpretation Comments Monocytes # (test code 0.4 See_Comment [Aut omated message] The = Monocytes #) system which generated this result tra nsmitted reference range : <=0.8. The reference r samantha was not used to int erpret this result as normal/abnormal . [facility]woodBkzdrheAKWMOQPFCR9775-42-96 09:29:00 Test Item Value Reference Range Interpretation Comments Macrocyte (test code = 1+ *ABN*(12/16/21 Macrocyte) 4:29 AM) [facility] [place]xoljlkAJTGIDBRRC9033-38-92 09:29:00 Test Item Value Reference Range Interpretation Comments C-REACTIVE PROTEIN (test code = 19.0 C-REACTIVE PROTEIN) [place] 510012-07-19 09:29:00 Test Item Value Reference Range Interpretation Comments Glucose Lvl (test code = Glucose Lvl) 199 70-99 [place] 510012-07-19 09:29:00 Test Item Value Reference Range Interpretation Comments BUN (test code = BUN) 28 12-19 [place] 510012-07-19 09:29:00 Test Item Value Reference Range Interpretation Comments Creatinine Lvl (test code = Creatinine 4.84 0.50-1.40 Lvl) [place] 510012-07-19 09:29:00 Test Item Value Reference Range Interpretation Comments Sodium Lvl (test code = Sodium Lvl) 134 135-145 [place] 510012-07-19 09:29:00 Test Item Value Reference Range Interpretation Comments Potassium Lvl (test code = Potassium 4.3 3.5-5.1 Lvl) [place] 510012-07-19 09:29:00 Test Item Value Reference Range Interpretation Comments Chloride Lvl (test code = Chloride Lvl) 100 95-109 [place] 510012-07-19 09:29:00 Test Item Value Reference Range Interpretation Comments CO2 (test code = CO2) 28 24-32 [place] 510012-07-19 09:29:00 Test Item Value Reference Range Interpretation Comments Calcium Lvl (test code = Calcium Lvl) 9.4 8.5-10.5 [place] 510012-07-19 09:29:00 Test Item Value Reference Range Interpretation Comments Total Protein (test code = Total 6.6 6.4-8.4 Protein) [place] 510012-07-19 09:29:00 Test Item Value Reference Range Interpretation Comments Albumin Lvl (test code = Albumin Lvl) 3.0 3.5-5.0 [facility] [employer] [id number] 09:29:00 Test Item Value Reference Range Interpretation Comments ALT (test code = ALT) 92 See_Comment [Auto mated message] The system which ge nerated this result transmit swathi reference range : <=65. The reference range was not used to interpr et this result as deny l/abnormal. [facility] [employer] [id number] 09:29:00 Test Item Value Reference Range Interpretation Comments AST (test code = AST) 123 See_Comment [Auto mated message] The system which ge nerated this result transmit swathi reference range : <=37. The reference range was not used to interpr et this result as deny l/abnormal. [facility] [employer] [id number] 09:29:00 Test Item Value Reference Range Interpretation Comments Alk Phos (test code = Alk Phos) 272 39-136 [facility] [employer] [id number] 09:29:00 Test Item Value Reference Range Interpretation Comments Bili Total (test code = Bili Total) 0.9 0.2-1.3 [facility] [employer] [id number] 09:29:00 Test Item Value Reference Range Interpretation Comments AGAP (test code = AGAP) 10.3 10.0-20.0 [facility] [employer] [id number] 09:29:00 Test Item Value Reference Range Interpretation Comments B/C Ratio (test code = B/C Ratio) 6 1 6-25 [facility] [id number] 09:29:00 Test Item Value Reference Range Interpretation Comments Globulin (test code = Globulin) 3.6 2.7-4.2 [facility] [employer] [id number] 09:29:00 Test Item Value Reference Range Interpretation Comments A/G Ratio (test code = A/G Ratio) 0.8 1 0.7-1.6 [facility] [employer] [id number] 09:29:00 Test Item Value Reference Range Interpretation Comments eGFR (test code = eGFR) 12 [facility] [employer] [id number] 09:29:00 Test Item Value Reference Range Interpretation Comments Phosphorus (test code = Phosphorus) 4.3 2.5-4.5 [facility]YfzmxviSONEPIHCSK8665-76-57 09:29:00 Test Item Value Reference Range Interpretation Comments WBC (test code = WBC) 4.7 3.7-10.4 [facility] CenterGvvkyfxDIQLAYFWPG2653-31-43 09:29:00 Test Item Value Reference Range Interpretation Comments RBC (test code = RBC) 2.14 4.70-6.10 [facility] CenterCqynrkbVHQXVPKLTR8992-78-70 09:29:00 Test Item Value Reference Range Interpretation Comments Hgb (test code = Hgb) 7.6 14.0-18.0 [facility] CenterUriqzstFPRZDYHETZ0980-72-45 09:29:00 Test Item Value Reference Range Interpretation Comments Hct (test code = Hct) 22.8 42.0-54.0 [facility] CenterQrglflsXKHTRYWJYQ4890-85-06 09:29:00 Test Item Value Reference Range Interpretation Comments MCV (test code = MCV) 106.6 80.0-94.0 [facility] CenterYdwchgjPUKJFALFAN0134-33-64 09:29:00 Test Item Value Reference Range Interpretation Comments MCH (test code = MCH) 35.6 pg 27.0-31.0 [facility] CenterGrlujhfZCMBAECZSV4934-33-74 09:29:00 Test Item Value Reference Range Interpretation Comments MCHC (test code = MCHC) 33.4 32.0-36.0 [facility] CenterLdxddabHVKPFPVLWL4677-27-01 09:29:00 Test Item Value Reference Range Interpretation Comments RDW (test code = RDW) 24.3 11.5-14.5 [facility] CenterUlheqelLKIUMBMVGL4516-93-83 09:29:00 Test Item Value Reference Range Interpretation Comments Platelet (test code = Platelet) 148 133-450 [facility] CenterDujmfszDDTXWXDFGI3228-12-25 09:29:00 Test Item Value Reference Range Interpretation Comments MPV (test code = MPV) 8.1 7.4-10.4 [facility] CenterSlrpitoKIAPOIAPOD3815-74-00 09:29:00 Test Item Value Reference Range Interpretation Comments D-Dimer (test code = D-Dimer) 3.63 [facility] CenterJ[id number] 09:29:00 Test Item Value Reference Range Interpretation Comments Segs (test code = Segs) 74.8 45.0-75.0 [facility] CenterHbowrrqZBOWZJIREG2972-34-72 09:29:00 Test Item Value Reference Range Interpretation Comments Lymphocytes (test code = Lymphocytes) 15.5 20.0-40.0 [place] 526272-07-19 09:29:00 Test Item Value Reference Range Interpretation Comments Monocytes (test code = Monocytes) 9.5 2.0-12.0 [facility] CenterKizixlqWCODOYYDAN2110-00-09 09:29:00 Test Item Value Reference Range Interpretation Comments Basophils (test code = 0.2 See_Comment [Aut omated message] The Basophils) system which ge nerated this result tra nsmitted reference range : <=1.0. The reference r samantha was not used to int erpret this result as normal/abnormal . [facility] CenterIjxhhclFPGPWWWVEF6815-48-12 09:29:00 Test Item Value Reference Range Interpretation Comments Neutrophils # (test code = Neutrophils 3.5 1.5-8.1 #) [facility] CenterDsmpsalVQJQIRLEPC6661-86-56 09:29:00 Test Item Value Reference Range Interpretation Comments Lymphocytes # (test code = Lymphocytes 0.7 1.0-5.5 #) [facility] CenterEtsmvgfPQEVNMNDUD1235-00-39 09:29:00 Test Item Value Reference Range Interpretation Comments Monocytes # (test code 0.4 See_Comment [Aut omated message] The = Monocytes #) system which generated this result tra nsmitted reference range : <=0.8. The reference r samantha was not used to int erpret this result as normal/abnormal . [facility] CenterReplodrGAFLISWHZR1388-55-70 09:29:00 Test Item Value Reference Range Interpretation Comments Macrocyte (test code = 1+ *ABN*(12/16/21 Macrocyte) 4:29 AM) [facility]woodWlpddarSGRPBPZVGL4826-06-14 09:29:00 Test Item Value Reference Range Interpretation Comments C-REACTIVE PROTEIN (test code = 19.0 C-REACTIVE PROTEIN) [facility] [id number] 09:29:00 Test Item Value Reference Range Interpretation Comments Glucose Lvl (test code = Glucose Lvl) 199 70-99 [facility] [id number] 09:29:00 Test Item Value Reference Range Interpretation Comments BUN (test code = BUN) 28 12-19 [place] 510012-07-19 09:29:00 Test Item Value Reference Range Interpretation Comments Creatinine Lvl (test code = Creatinine 4.84 0.50-1.40 Lvl) [facility]2022-07-19 09:29:00 Test Item Value Reference Range Interpretation Comments Sodium Lvl (test code = Sodium Lvl) 134 135-145 [place] 510012-07-19 09:29:00 Test Item Value Reference Range Interpretation Comments Potassium Lvl (test code = Potassium 4.3 3.5-5.1 Lvl) [place] 510012-07-19 09:29:00 Test Item Value Reference Range Interpretation Comments Chloride Lvl (test code = Chloride Lvl) 100 95-109 [place] 510012-07-19 09:29:00 Test Item Value Reference Range Interpretation Comments CO2 (test code = CO2) 28 24-32 [place] 510012-07-19 09:29:00 Test Item Value Reference Range Interpretation Comments Calcium Lvl (test code = Calcium Lvl) 9.4 8.5-10.5 [place] 510012-07-19 09:29:00 Test Item Value Reference Range Interpretation Comments Total Protein (test code = Total 6.6 6.4-8.4 Protein) [place] [address]-07-19 09:29:00 Test Item Value Reference Range Interpretation Comments Albumin Lvl (test code = Albumin Lvl) 3.0 3.5-5.0 [place] 510012-07-19 09:29:00 Test Item Value Reference Range Interpretation Comments ALT (test code = ALT) 92 See_Comment [Auto mated message] The system which ge nerated this result transmit swathi reference range : <=65. The reference range was not used to interpr et this result as deny l/abnormal. [place] 510012-07-19 09:29:00 Test Item Value Reference Range Interpretation Comments AST (test code = AST) 123 See_Comment [Auto mated message] The system which ge nerated this result transmit swathi reference range : <=37. The reference range was not used to interpr et this result as deny l/abnormal. [place] 510012-07-19 09:29:00 Test Item Value Reference Range Interpretation Comments Alk Phos (test code = Alk Phos) 272 39-136 [place] 510012-07-19 09:29:00 Test Item Value Reference Range Interpretation Comments Bili Total (test code = Bili Total) 0.9 0.2-1.3 [place] 510012-07-19 09:29:00 Test Item Value Reference Range Interpretation Comments AGAP (test code = AGAP) 10.3 10.0-20.0 [place] 510012-07-19 09:29:00 Test Item Value Reference Range Interpretation Comments B/C Ratio (test code = B/C Ratio) 6 1 6-25 [place] 510012-07-19 09:29:00 Test Item Value Reference Range Interpretation Comments Globulin (test code = Globulin) 3.6 2.7-4.2 [place] 510012-07-19 09:29:00 Test Item Value Reference Range Interpretation Comments A/G Ratio (test code = A/G Ratio) 0.8 1 0.7-1.6 [place] 510012-07-19 09:29:00 Test Item Value Reference Range Interpretation Comments eGFR (test code = eGFR) 12 [place] 510012-07-19 09:29:00 Test Item Value Reference Range Interpretation Comments Phosphorus (test code = Phosphorus) 4.3 2.5-4.5 [place] 526272-07-19 09:29:00 Test Item Value Reference Range Interpretation Comments WBC (test code = WBC) 4.7 3.7-10.4 [place] 526272-07-19 09:29:00 Test Item Value Reference Range Interpretation Comments RBC (test code = RBC) 2.14 4.70-6.10 [place] 526272-07-19 09:29:00 Test Item Value Reference Range Interpretation Comments Hgb (test code = Hgb) 7.6 14.0-18.0 [place] 526272-07-19 09:29:00 Test Item Value Reference Range Interpretation Comments Hct (test code = Hct) 22.8 42.0-54.0 [place] [address]-07-19 09:29:00 Test Item Value Reference Range Interpretation Comments MCV (test code = MCV) 106.6 80.0-94.0 [place] [address]-07-19 09:29:00 Test Item Value Reference Range Interpretation Comments MCH (test code = MCH) 35.6 pg 27.0-31.0 [place] 526272-07-19 09:29:00 Test Item Value Reference Range Interpretation Comments MCHC (test code = MCHC) 33.4 32.0-36.0 [facility] CenterKjkilafMMMPIDTTFC9461-62-73 09:29:00 Test Item Value Reference Range Interpretation Comments RDW (test code = RDW) 24.3 11.5-14.5 [facility] CenterUjnzkijEMWKXDQSTC0235-96-84 09:29:00 Test Item Value Reference Range Interpretation Comments Platelet (test code = Platelet) 148 133-450 [place] 526272-07-19 09:29:00 Test Item Value Reference Range Interpretation Comments MPV (test code = MPV) 8.1 7.4-10.4 [place] 526272-07-19 09:29:00 Test Item Value Reference Range Interpretation Comments D-Dimer (test code = D-Dimer) 3.63 [place] 526272-07-19 09:29:00 Test Item Value Reference Range Interpretation Comments Segs (test code = Segs) 74.8 45.0-75.0 [facility] CenterWzteymhCOWAROALSE0617-53-58 09:29:00 Test Item Value Reference Range Interpretation Comments Lymphocytes (test code = Lymphocytes) 15.5 20.0-40.0 [place] 526272-07-19 09:29:00 Test Item Value Reference Range Interpretation Comments Monocytes (test code = Monocytes) 9.5 2.0-12.0 [place] 526272-07-19 09:29:00 Test Item Value Reference Range Interpretation Comments Basophils (test code = 0.2 See_Comment [Aut omated message] The Basophils) system which ge nerated this result tra nsmitted reference range : <=1.0. The reference r samantha was not used to int erpret this result as normal/abnormal . [facility] CenterKrdtdwhJHRSYZYRQM0082-42-70 09:29:00 Test Item Value Reference Range Interpretation Comments Neutrophils # (test code = Neutrophils 3.5 1.5-8.1 #) [facility] CenterBkhvvjvCBFAWIANNM9304-46-39 09:29:00 Test Item Value Reference Range Interpretation Comments Lymphocytes # (test code = Lymphocytes 0.7 1.0-5.5 #) [facility] CenterHuzabxtTORCTRAIRX4482-22-53 09:29:00 Test Item Value Reference Range Interpretation Comments Monocytes # (test code 0.4 See_Comment [Aut omated message] The = Monocytes #) system which generated this result tra nsmitted reference range : <=0.8. The reference r samantha was not used to int erpret this result as normal/abnormal . [facility]vtRUDJTXMIFB4918-58-78 09:29:00 Test Item Value Reference Range Interpretation Comments Macrocyte (test code = 1+ *ABN*(12/16/21 Macrocyte) 4:29 AM) [facility]woodXtldjmjAWZKYRUPVE4219-70-53 09:29:00 Test Item Value Reference Range Interpretation Comments C-REACTIVE PROTEIN (test code = 19.0 C-REACTIVE PROTEIN) [facility]2022-07-19 09:29:00 Test Item Value Reference Range Interpretation Comments Glucose Lvl (test code = Glucose Lvl) 199 70-99 [facility]2022-07-19 09:29:00 Test Item Value Reference Range Interpretation Comments BUN (test code = BUN) 28 - [facility]2022-07-19 09:29:00 Test Item Value Reference Range Interpretation Comments Creatinine Lvl (test code = Creatinine 4.84 0.50-1.40 Lvl) [facility]2022-07-19 09:29:00 Test Item Value Reference Range Interpretation Comments Sodium Lvl (test code = Sodium Lvl) 134 135-145 [facility]2022-07-19 09:29:00 Test Item Value Reference Range Interpretation Comments Potassium Lvl (test code = Potassium 4.3 3.5-5.1 Lvl) [facility]2022-07-19 09:29:00 Test Item Value Reference Range Interpretation Comments Chloride Lvl (test code = Chloride Lvl) 100 95-109 [place] 510012-07-19 09:29:00 Test Item Value Reference Range Interpretation Comments CO2 (test code = CO2) 28 24-32 [facility]2022-07-19 09:29:00 Test Item Value Reference Range Interpretation Comments Calcium Lvl (test code = Calcium Lvl) 9.4 8.5-10.5 [facility]2022-07-19 09:29:00 Test Item Value Reference Range Interpretation Comments Total Protein (test code = Total 6.6 6.4-8.4 Protein) [place] 510012-07-19 09:29:00 Test Item Value Reference Range Interpretation Comments Albumin Lvl (test code = Albumin Lvl) 3.0 3.5-5.0 [place] 510012-07-19 09:29:00 Test Item Value Reference Range Interpretation Comments ALT (test code = ALT) 92 See_Comment [Auto mated message] The system which ge nerated this result transmit swathi reference range : <=65. The reference range was not used to interpr et this result as deny l/abnormal. [place] 510012-07-19 09:29:00 Test Item Value Reference Range Interpretation Comments AST (test code = AST) 123 See_Comment [Auto mated message] The system which ge nerated this result transmit swathi reference range : <=37. The reference range was not used to interpr et this result as deny l/abnormal. [place] 510012-07-19 09:29:00 Test Item Value Reference Range Interpretation Comments Alk Phos (test code = Alk Phos) 272 39-136 [facility] [id number] 09:29:00 Test Item Value Reference Range Interpretation Comments Bili Total (test code = Bili Total) 0.9 0.2-1.3 [facility] [id number] 09:29:00 Test Item Value Reference Range Interpretation Comments AGAP (test code = AGAP) 10.3 10.0-20.0 [facility] [id number] 09:29:00 Test Item Value Reference Range Interpretation Comments B/C Ratio (test code = B/C Ratio) 6 1 6-25 [facility] [id number] 09:29:00 Test Item Value Reference Range Interpretation Comments Globulin (test code = Globulin) 3.6 2.7-4.2 [facility] [id number] 09:29:00 Test Item Value Reference Range Interpretation Comments A/G Ratio (test code = A/G Ratio) 0.8 1 0.7-1.6 [place] [address]-07-19 09:29:00 Test Item Value Reference Range Interpretation Comments eGFR (test code = eGFR) 12 [facility] VLRWJ3715-01-07 09:29:00 Test Item Value Reference Range Interpretation Comments Phosphorus (test code = Phosphorus) 4.3 2.5-4.5 [facility] CenterMgattyoXGHZRJRPXQ9870-88-03 09:29:00 Test Item Value Reference Range Interpretation Comments WBC (test code = WBC) 4.7 3.7-10.4 [facility] CenterKcltomiWKBYYRTZDP0852-28-92 09:29:00 Test Item Value Reference Range Interpretation Comments RBC (test code = RBC) 2.14 4.70-6.10 [facility] CenterJzxneppNQZPEOYEYP9130-38-45 09:29:00 Test Item Value Reference Range Interpretation Comments Hgb (test code = Hgb) 7.6 14.0-18.0 [facility] CenterVuyqcccUZUIAVFKJT4383-48-24 09:29:00 Test Item Value Reference Range Interpretation Comments Hct (test code = Hct) 22.8 42.0-54.0 [facility] CenterRsynlmwZNDJNXPSEY3486-82-57 09:29:00 Test Item Value Reference Range Interpretation Comments MCV (test code = MCV) 106.6 80.0-94.0 [facility] CenterYvhoccgRDPSHMZNTO3588-31-04 09:29:00 Test Item Value Reference Range Interpretation Comments MCH (test code = MCH) 35.6 pg 27.0-31.0 [facility] CenterLeaqbteFILQXECZRN2667-59-95 09:29:00 Test Item Value Reference Range Interpretation Comments MCHC (test code = MCHC) 33.4 32.0-36.0 [facility] CenterGgixkfqNKHEZHSFQI1308-94-59 09:29:00 Test Item Value Reference Range Interpretation Comments RDW (test code = RDW) 24.3 11.5-14.5 [facility] CenterSfwtxyoAYAOIWFSXR3107-18-25 09:29:00 Test Item Value Reference Range Interpretation Comments Platelet (test code = Platelet) 148 133-450 [facility] CenterSqnxtgmOIUZCFTUWG0361-02-44 09:29:00 Test Item Value Reference Range Interpretation Comments MPV (test code = MPV) 8.1 7.4-10.4 [facility] CenterEbkmhheFIFBYCJWFP9897-88-38 09:29:00 Test Item Value Reference Range Interpretation Comments D-Dimer (test code = D-Dimer) 3.63 [facility] CenterLjdblbaORASGBWWMI1488-83-37 09:29:00 Test Item Value Reference Range Interpretation Comments Segs (test code = Segs) 74.8 45.0-75.0 [place] 526272-07-19 09:29:00 Test Item Value Reference Range Interpretation Comments Lymphocytes (test code = Lymphocytes) 15.5 20.0-40.0 [facility] CenterIyyxlumGFKFTZPKEJ5899-21-81 09:29:00 Test Item Value Reference Range Interpretation Comments Monocytes (test code = Monocytes) 9.5 2.0-12.0 [facility] CenterBzttaxnZDCQCQKYXJ2907-59-22 09:29:00 Test Item Value Reference Range Interpretation Comments Basophils (test code = 0.2 See_Comment [Aut omated message] The Basophils) system which ge nerated this result tra nsmitted reference range : <=1.0. The reference r samantha was not used to int erpret this result as normal/abnormal . [facility] CenterTwyibqiQDOOWDEFME6130-28-88 09:29:00 Test Item Value Reference Range Interpretation Comments Neutrophils # (test code = Neutrophils 3.5 1.5-8.1 #) [facility] CenterVwuqgihFGQBDUIVFI8813-90-53 09:29:00 Test Item Value Reference Range Interpretation Comments Lymphocytes # (test code = Lymphocytes 0.7 1.0-5.5 #) [facility] CenterSmwgnjqXVUMYMGEAZ8743-63-90 09:29:00 Test Item Value Reference Range Interpretation Comments Monocytes # (test code 0.4 See_Comment [Aut omated message] The = Monocytes #) system which generated this result tra nsmitted reference range : <=0.8. The reference r samantha was not used to int erpret this result as normal/abnormal . [facility] CenterEkfejllCUSBQDXDES5755-17-81 09:29:00 Test Item Value Reference Range Interpretation Comments Macrocyte (test code = 1+ *ABN*(12/16/21 Macrocyte) 4:29 AM) [facility] KingwoodLpdkshiVIEOVYGMWE6883-54-11 09:29:00 Test Item Value Reference Range Interpretation Comments C-REACTIVE PROTEIN (test code = 19.0 C-REACTIVE PROTEIN) [facility] [id number] 09:29:00 Test Item Value Reference Range Interpretation Comments Glucose Lvl (test code = Glucose Lvl) 199 70-99 [facility]2022-07-19 09:29:00 Test Item Value Reference Range Interpretation Comments BUN (test code = BUN) 28 12-19 [facility] [id number] 09:29:00 Test Item Value Reference Range Interpretation Comments Creatinine Lvl (test code = Creatinine 4.84 0.50-1.40 Lvl) [place] 510012-07-19 09:29:00 Test Item Value Reference Range Interpretation Comments Sodium Lvl (test code = Sodium Lvl) 134 135-145 [place] 510012-07-19 09:29:00 Test Item Value Reference Range Interpretation Comments Potassium Lvl (test code = Potassium 4.3 3.5-5.1 Lvl) [place] 510012-07-19 09:29:00 Test Item Value Reference Range Interpretation Comments Chloride Lvl (test code = Chloride Lvl) 100 95-109 [place] 510012-07-19 09:29:00 Test Item Value Reference Range Interpretation Comments CO2 (test code = CO2) 28 24-32 [place] 510012-07-19 09:29:00 Test Item Value Reference Range Interpretation Comments Calcium Lvl (test code = Calcium Lvl) 9.4 8.5-10.5 [place] 510012-07-19 09:29:00 Test Item Value Reference Range Interpretation Comments Total Protein (test code = Total 6.6 6.4-8.4 Protein) [place] 510012-07-19 09:29:00 Test Item Value Reference Range Interpretation Comments Albumin Lvl (test code = Albumin Lvl) 3.0 3.5-5.0 [place] 510012-07-19 09:29:00 Test Item Value Reference Range Interpretation Comments ALT (test code = ALT) 92 See_Comment [Auto mated message] The system which nerated this result transmit swathi reference range : <=65. The reference range was not used to interpr et this result as deny l/abnormal. [place] 510012-07-19 09:29:00 Test Item Value Reference Range Interpretation Comments AST (test code = AST) 123 See_Comment [Auto mated message] The system which [employer] nerated this result transmit swathi reference range : <=37. The reference range was not used to interpr et this result as deny l/abnormal. [place] 510012-07-19 09:29:00 Test Item Value Reference Range Interpretation Comments Alk Phos (test code = Alk Phos) 272 39-136 [place] [address]-07-19 09:29:00 Test Item Value Reference Range Interpretation Comments Bili Total (test code = Bili Total) 0.9 0.2-1.3 [place] 510012-07-19 09:29:00 Test Item Value Reference Range Interpretation Comments AGAP (test code = AGAP) 10.3 10.0-20.0 [place] 510012-07-19 09:29:00 Test Item Value Reference Range Interpretation Comments B/C Ratio (test code = B/C Ratio) 6 1 6-25 [place] 510012-07-19 09:29:00 Test Item Value Reference Range Interpretation Comments Globulin (test code = Globulin) 3.6 2.7-4.2 [place] 510012-07-19 09:29:00 Test Item Value Reference Range Interpretation Comments A/G Ratio (test code = A/G Ratio) 0.8 1 0.7-1.6 [place] 510012-07-19 09:29:00 Test Item Value Reference Range Interpretation Comments eGFR (test code = eGFR) 12 [facility]2022-07-19 09:29:00 Test Item Value Reference Range Interpretation Comments Phosphorus (test code = Phosphorus) 4.3 2.5-4.5 [place] 526272-07-19 09:29:00 Test Item Value Reference Range Interpretation Comments WBC (test code = WBC) 4.7 3.7-10.4 [place] 526272-07-19 09:29:00 Test Item Value Reference Range Interpretation Comments RBC (test code = RBC) 2.14 4.70-6.10 [place] 526272-07-19 09:29:00 Test Item Value Reference Range Interpretation Comments Hgb (test code = Hgb) 7.6 14.0-18.0 [place] [address]-07-19 09:29:00 Test Item Value Reference Range Interpretation Comments Hct (test code = Hct) 22.8 42.0-54.0 [place] 526272-07-19 09:29:00 Test Item Value Reference Range Interpretation Comments MCV (test code = MCV) 106.6 80.0-94.0 [place] 526272-07-19 09:29:00 Test Item Value Reference Range Interpretation Comments MCH (test code = MCH) 35.6 pg 27.0-31.0 [place] 526272-07-19 09:29:00 Test Item Value Reference Range Interpretation Comments MCHC (test code = MCHC) 33.4 32.0-36.0 [place] 526272-07-19 09:29:00 Test Item Value Reference Range Interpretation Comments RDW (test code = RDW) 24.3 11.5-14.5 [place] 526272-07-19 09:29:00 Test Item Value Reference Range Interpretation Comments Platelet (test code = Platelet) 148 133-450 [facility] CenterOigwxsxMYJEWBHTWB7237-17-25 09:29:00 Test Item Value Reference Range Interpretation Comments MPV (test code = MPV) 8.1 7.4-10.4 [place] 526272-07-19 09:29:00 Test Item Value Reference Range Interpretation Comments D-Dimer (test code = D-Dimer) 3.63 [place] 526272-07-19 09:29:00 Test Item Value Reference Range Interpretation Comments Segs (test code = Segs) 74.8 45.0-75.0 [place] 526272-07-19 09:29:00 Test Item Value Reference Range Interpretation Comments Lymphocytes (test code = Lymphocytes) 15.5 20.0-40.0 [place] 526272-07-19 09:29:00 Test Item Value Reference Range Interpretation Comments Monocytes (test code = Monocytes) 9.5 2.0-12.0 [place] 526272-07-19 09:29:00 Test Item Value Reference Range Interpretation Comments Basophils (test code = 0.2 See_Comment [Aut omated message] The Basophils) system which ge nerated this result tra nsmitted reference range : <=1.0. The reference r samantha was not used to int erpret this result as normal/abnormal . [facility] CenterZnjezntHJIPQGHRYL0887-67-54 09:29:00 Test Item Value Reference Range Interpretation Comments Neutrophils # (test code = Neutrophils 3.5 1.5-8.1 #) [place] 526272-07-19 09:29:00 Test Item Value Reference Range Interpretation Comments Lymphocytes # (test code = Lymphocytes 0.7 1.0-5.5 #) [facility] CenterAkwmtcfTXOCAWRCDZ4242-36-71 09:29:00 Test Item Value Reference Range Interpretation Comments Monocytes # (test code 0.4 See_Comment [Aut omated message] The = Monocytes #) system which generated this result tra nsmitted reference range : <=0.8. The reference r samantha was not used to int erpret this result as normal/abnormal . [facility] CenterTqbegdeDWJSDDNCWT1172-00-39 09:29:00 Test Item Value Reference Range Interpretation Comments Macrocyte (test code = 1+ *ABN*(12/16/21 Macrocyte) 4:29 AM) [facility]NjekxqlLYHFGDFIHW5133-15-77 09:29:00 Test Item Value Reference Range Interpretation Comments C-REACTIVE PROTEIN (test code = 19.0 C-REACTIVE PROTEIN) [facility]villeLparhrxDXLCNGAMRO9930-53-06 02:28:00 Test Item Value Reference Range Interpretation Comments Hep Bs Ag (test code Negative *NA*(12/15/21 = Hep Bs Ag) 9:28 PM) [facility]villeWfzmkaoNPONPAVNVC4172-04-80 02:28:00 Test Item Value Reference Range Interpretation Comments Hep Bs Ag (test code Negative *NA*(12/15/21 = Hep Bs Ag) 9:28 PM) [facility]villeJbkttxfJELXPNBSYS1217-76-85 02:28:00 Test Item Value Reference Range Interpretation Comments Hep Bs Ag (test code Negative *NA*(12/15/21 = Hep Bs Ag) 9:28 PM) [facility]villeQrzyyssXBPVPKNQCQ2817-84-50 02:28:00 Test Item Value Reference Range Interpretation Comments Hep Bs Ag (test code Negative *NA*(12/15/21 = Hep Bs Ag) 9:28 PM) [facility]villeLflhibjQYQHGXJBCM2537-16-06 02:28:00 Test Item Value Reference Range Interpretation Comments Hep Bs Ag (test code Negative *NA*(12/15/21 = Hep Bs Ag) 9:28 PM) [facility]villeBiqakfbJPYAKKXPEJ7169-46-64 02:28:00 Test Item Value Reference Range Interpretation Comments Hep Bs Ag (test code Negative *NA*(12/15/21 = Hep Bs Ag) 9:28 PM) [facility]villeLohzfydUKFABIYLZP5138-18-21 02:28:00 Test Item Value Reference Range Interpretation Comments Hep Bs Ag (test code Negative *NA*(12/15/21 = Hep Bs Ag) 9:28 PM) [facility] [id number] 17:16:00 Test Item Value Reference Range Interpretation Comments Gram Stain Report Gram Stain Performed By: (test code = [facility] St[facility] Report) [facility] Respiratory w/Gram [id number] 17:16:00 Test Item Value Reference Range Interpretation Comments Culture: Respiratory Moderate Yeast Normal w/Gram Stain (test code Respiratory Lyndsay = Culture: Respiratory Isolated w/Gram Stain) [facility] Rbjjsp4255-44-29 17:16:00 Test Item Value Reference Range Interpretation Comments Gram Stain Report Gram Stain Performed By: (test code = [facility] Stain Report) [facility]ann[facility]: Respiratory w/Gram [id number] 17:16:00 Test Item Value Reference Range Interpretation Comments Culture: Respiratory Moderate Yeast Normal w/Gram Stain (test code Respiratory Lyndsay = Culture: Respiratory Isolated w/Gram Stain) [facility] Vgzytd4759-97-22 17:16:00 Test Item Value Reference Range Interpretation Comments Gram Stain Report Gram Stain Performed By: (test code = [facility]) [facility] w/Gram [id number] 17:16:00 Test Item Value Reference Range Interpretation Comments Culture: Respiratory Moderate Yeast Normal w/Gram Stain (test code Respiratory Lyndsay = Culture: Respiratory Isolated w/Gram Stain) [facility] Igpgjz4640-82-92 17:16:00 Test Item Value Reference Range Interpretation Comments Gram Stain Report Gram Stain Performed By: (test code = [facility] Stain Report) [facility]/Gram [id number] 17:16:00 Test Item Value Reference Range Interpretation Comments Culture: Respiratory Moderate Yeast Normal w/Gram Stain (test code Respiratory Lyndsay = Culture: Respiratory Isolated w/Gram Stain) [facility] [id number] 17:16:00 Test Item Value Reference Range Interpretation Comments Gram Stain Report Gram Stain Performed By: (test code = [facility] Stain Report) [facility] Center[facility] Respiratory w/Gram [id number] 17:16:00 Test Item Value Reference Range Interpretation Comments Culture: Respiratory Moderate Yeast Normal w/Gram Stain (test code Respiratory Lyndsay = Culture: Respiratory Isolated w/Gram Stain) [facility] [id number] 17:16:00 Test Item Value Reference Range Interpretation Comments Gram Stain Report Gram Stain Performed By: (test code = [facility] Stain Report) [facility]annCulture: Respiratory w/Gram [id number] 17:16:00 Test Item Value Reference Range Interpretation Comments Culture: Respiratory Moderate Yeast Normal w/Gram Stain (test code Respiratory Lyndsay = Culture: Respiratory Isolated w/Gram Stain) [facility] [id number] 17:16:00 Test Item Value Reference Range Interpretation Comments Gram Stain Report Gram Stain Performed By: (test code = [facility] Report) [facility]ann[facility]: Respiratory w/Gram [id number] 17:16:00 Test Item Value Reference Range Interpretation Comments Culture: Respiratory Moderate Yeast Normal w/Gram Stain (test code Respiratory Lyndsay = Culture: Respiratory Isolated w/Gram Stain) [facility] [id number] 09:04:00 Test Item Value Reference Range Interpretation Comments Glucose Lvl (test code = Glucose Lvl) 59 70-99 [facility] [id number] 09:04:00 Test Item Value Reference Range Interpretation Comments BUN (test code = BUN) 41 7-22 [facility] [id number] 09:04:00 Test Item Value Reference Range Interpretation Comments Creatinine Lvl (test code = Creatinine 7.00 0.50-1.40 Lvl) [facility] [id number] 09:04:00 Test Item Value Reference Range Interpretation Comments Sodium Lvl (test code = Sodium Lvl) 134 135-145 [facility] [id number] 09:04:00 Test Item Value Reference Range Interpretation Comments Potassium Lvl (test code = Potassium 4.0 3.5-5.1 Lvl) [facility] [id number] 09:04:00 Test Item Value Reference Range Interpretation Comments Chloride Lvl (test code = Chloride Lvl) 102 95-109 [facility] [id number] 09:04:00 Test Item Value Reference Range Interpretation Comments CO2 (test code = CO2) 25 24-32 [facility]2022-07-18 09:04:00 Test Item Value Reference Range Interpretation Comments Calcium Lvl (test code = Calcium Lvl) 9.1 8.5-10.5 [place] 510012-07-18 09:04:00 Test Item Value Reference Range Interpretation Comments Total Protein (test code = Total 6.2 6.4-8.4 Protein) [place] 510012-07-18 09:04:00 Test Item Value Reference Range Interpretation Comments Albumin Lvl (test code = Albumin Lvl) 2.8 3.5-5.0 [place] [address]-07-18 09:04:00 Test Item Value Reference Range Interpretation Comments ALT (test code = ALT) 78 See_Comment [Auto mated message] The system which ge nerated this result transmit swathi reference range : <=65. The reference range was not used to interpr et this result as deny l/abnormal. [facility] [id number] 09:04:00 Test Item Value Reference Range Interpretation Comments AST (test code = AST) 117 See_Comment [Auto mated message] The system which ge nerated this result transmit swathi reference range : <=37. The reference range was not used to interpr et this result as deny l/abnormal. [facility] [id number] 09:04:00 Test Item Value Reference Range Interpretation Comments Alk Phos (test code = Alk Phos) 251 39-136 [facility] [id number] 09:04:00 Test Item Value Reference Range Interpretation Comments Bili Total (test code = Bili Total) 0.9 0.2-1.3 [facility]An[facility] [id number] 09:04:00 Test Item Value Reference Range Interpretation Comments AGAP (test code = AGAP) 11.0 10.0-20.0 [facility]An[facility] [id number] 09:04:00 Test Item Value Reference Range Interpretation Comments B/C Ratio (test code = B/C Ratio) 6 1 6-25 [facility] [id number] 09:04:00 Test Item Value Reference Range Interpretation Comments Globulin (test code = Globulin) 3.4 2.7-4.2 [facility] [id number] 09:04:00 Test Item Value Reference Range Interpretation Comments A/G Ratio (test code = A/G Ratio) 0.8 1 0.7-1.6 [facility]2022-07-18 09:04:00 Test Item Value Reference Range Interpretation Comments eGFR (test code = eGFR) 8 [facility] CenterOjzqfzbBKUTHDVNXY5335-18-59 09:04:00 Test Item Value Reference Range Interpretation Comments D-Dimer (test code = D-Dimer) 3.03 [facility] CenterIfmlhmfWQBUDYUHEW0124-97-18 09:04:00 Test Item Value Reference Range Interpretation Comments WBC (test code = WBC) 3.6 3.7-10.4 [facility] CenterTumdvdqZZYURWOEKR9897-87-86 09:04:00 Test Item Value Reference Range Interpretation Comments RBC (test code = RBC) 2.07 4.70-6.10 [facility] CenterHfnnlmwUPEOLDCZIR6881-17-23 09:04:00 Test Item Value Reference Range Interpretation Comments Hgb (test code = Hgb) 7.5 14.0-18.0 [facility] CenterWuarbqwEAOFDTQLZH2372-60-11 09:04:00 Test Item Value Reference Range Interpretation Comments Hct (test code = Hct) 22.0 42.0-54.0 [facility] CenterRvnanrqOFNESMNHMI7285-45-85 09:04:00 Test Item Value Reference Range Interpretation Comments MCV (test code = MCV) 106.3 80.0-94.0 [facility] CenterZlushtxMBELTVXIMJ9686-52-88 09:04:00 Test Item Value Reference Range Interpretation Comments MCH (test code = MCH) 36.1 pg 27.0-31.0 [facility] CenterQoqfyriFSWXOBNWOS2351-36-32 09:04:00 Test Item Value Reference Range Interpretation Comments MCHC (test code = MCHC) 33.9 32.0-36.0 [place] 526272-07-18 09:04:00 Test Item Value Reference Range Interpretation Comments RDW (test code = RDW) 23.9 11.5-14.5 [facility] CenterNrpdpflSRRLTBETPI5104-13-67 09:04:00 Test Item Value Reference Range Interpretation Comments Platelet (test code = Platelet) 133 133-450 [facility] CenterJcpqgbxJRZQTPIUNJ8153-09-50 09:04:00 Test Item Value Reference Range Interpretation Comments MPV (test code = MPV) 8.1 7.4-10.4 [place] [address]-07-18 09:04:00 Test Item Value Reference Range Interpretation Comments Segs (test code = Segs) 60.8 45.0-75.0 [place] [address]-07-18 09:04:00 Test Item Value Reference Range Interpretation Comments Lymphocytes (test code = Lymphocytes) 22.3 20.0-40.0 [place] [address]-07-18 09:04:00 Test Item Value Reference Range Interpretation Comments Monocytes (test code = Monocytes) 13.9 2.0-12.0 [place] [address]-07-18 09:04:00 Test Item Value Reference Range Interpretation Comments Eosinophils (test code = 2.6 See_Comment [A utomated message] The Eosinophils) system which ge nerated this result tra nsmitted reference range : <=4.0. The reference r samantha was not used to int erpret this result as normal/abnormal . [place] [address]-07-18 09:04:00 Test Item Value Reference Range Interpretation Comments Basophils (test code = 0.4 See_Comment [Aut omated message] The Basophils) system which ge nerated this result tra nsmitted reference range : <=1.0. The reference r samantha was not used to int erpret this result as normal/abnormal . [place] [address]-07-18 09:04:00 Test Item Value Reference Range Interpretation Comments Neutrophils # (test code = Neutrophils 2.2 1.5-8.1 #) [place] [address]-07-18 09:04:00 Test Item Value Reference Range Interpretation Comments Lymphocytes # (test code = Lymphocytes 0.8 1.0-5.5 #) [place] [address]-07-18 09:04:00 Test Item Value Reference Range Interpretation Comments Monocytes # (test code 0.5 See_Comment [Aut omated message] The = Monocytes #) system which generated this result tra nsmitted reference range : <=0.8. The reference r samantha was not used to int erpret this result as normal/abnormal . [place] [address]-07-18 09:04:00 Test Item Value Reference Range Interpretation Comments Eosinophils # (test code 0.1 See_Comment [A utomated message] The = Eosinophils #) system whic h generated this result tra nsmitted reference range : <=0.5. The reference r samantha was not used to int erpret this result as normal/abnormal . [facility]WC[facility]WR[facility]CA[facility]13[facility]60 09:04:00 Test Item Value Reference Range Interpretation Comments Macrocyte (test code = 1+ *ABN*(12/15/21 Macrocyte) 4:04 AM) [facility] KingwoodNakagyfHXTFICKRTW6541-92-05 09:04:00 Test Item Value Reference Range Interpretation Comments C-REACTIVE PROTEIN (test code = 25.1 C-REACTIVE PROTEIN) [facility] KingwoodZotwgkfPSQENEHXJT0053-27-22 09:04:00 Test Item Value Reference Range Interpretation Comments Vanco Lvl (test code = Vanco Lvl) 15.2 [facility]2022-07-18 09:04:00 Test Item Value Reference Range Interpretation Comments Glucose Lvl (test code = Glucose Lvl) 59 70-99 [place] 510012-07-18 09:04:00 Test Item Value Reference Range Interpretation Comments BUN (test code = BUN) 41 7-22 [facility]2022-07-18 09:04:00 Test Item Value Reference Range Interpretation Comments Creatinine Lvl (test code = Creatinine 7.00 0.50-1.40 Lvl) [facility]2022-07-18 09:04:00 Test Item Value Reference Range Interpretation Comments Sodium Lvl (test code = Sodium Lvl) 134 135-145 [facility]2022-07-18 09:04:00 Test Item Value Reference Range Interpretation Comments Potassium Lvl (test code = Potassium 4.0 3.5-5.1 Lvl) [facility]2022-07-18 09:04:00 Test Item Value Reference Range Interpretation Comments Chloride Lvl (test code = Chloride Lvl) 102 95-109 [place] 510012-07-18 09:04:00 Test Item Value Reference Range Interpretation Comments CO2 (test code = CO2) 25 24-32 [facility]2022-07-18 09:04:00 Test Item Value Reference Range Interpretation Comments Calcium Lvl (test code = Calcium Lvl) 9.1 8.5-10.5 [facility]2022-07-18 09:04:00 Test Item Value Reference Range Interpretation Comments Total Protein (test code = Total 6.2 6.4-8.4 Protein) [place] 510012-07-18 09:04:00 Test Item Value Reference Range Interpretation Comments Albumin Lvl (test code = Albumin Lvl) 2.8 3.5-5.0 [place] 510012-07-18 09:04:00 Test Item Value Reference Range Interpretation Comments ALT (test code = ALT) 78 See_Comment [Auto mated message] The system which ge nerated this result transmit swathi reference range : <=65. The reference range was not used to interpr et this result as deny l/abnormal. [facility] [id number] 09:04:00 Test Item Value Reference Range Interpretation Comments AST (test code = AST) 117 See_Comment [Auto mated message] The system which ge nerated this result transmit swathi reference range : <=37. The reference range was not used to interpr et this result as deny l/abnormal. [facility] [id number] 09:04:00 Test Item Value Reference Range Interpretation Comments Alk Phos (test code = Alk Phos) 251 39-136 [facility] [id number] 09:04:00 Test Item Value Reference Range Interpretation Comments Bili Total (test code = Bili Total) 0.9 0.2-1.3 [facility] [id number] 09:04:00 Test Item Value Reference Range Interpretation Comments AGAP (test code = AGAP) 11.0 10.0-20.0 [facility] [id number] 09:04:00 Test Item Value Reference Range Interpretation Comments B/C Ratio (test code = B/C Ratio) 6 1 6-25 [facility] [id number] 09:04:00 Test Item Value Reference Range Interpretation Comments Globulin (test code = Globulin) 3.4 2.7-4.2 [facility] [id number] 09:04:00 Test Item Value Reference Range Interpretation Comments A/G Ratio (test code = A/G Ratio) 0.8 1 0.7-1.6 [facility] VTEKJ8357-89-01 09:04:00 Test Item Value Reference Range Interpretation Comments eGFR (test code = eGFR) 8 [place] 526272-07-18 09:04:00 Test Item Value Reference Range Interpretation Comments D-Dimer (test code = D-Dimer) 3.03 [place] 526272-07-18 09:04:00 Test Item Value Reference Range Interpretation Comments WBC (test code = WBC) 3.6 3.7-10.4 [facility] CenterHgtdexyYMBCDUKJRA7329-49-40 09:04:00 Test Item Value Reference Range Interpretation Comments RBC (test code = RBC) 2.07 4.70-6.10 [facility] CenterZmqgncnQTKUZTSBBC7786-09-32 09:04:00 Test Item Value Reference Range Interpretation Comments Hgb (test code = Hgb) 7.5 14.0-18.0 [place] 526272-07-18 09:04:00 Test Item Value Reference Range Interpretation Comments Hct (test code = Hct) 22.0 42.0-54.0 [facility] CenterQaushrtPZBPFBMQVJ9260-65-18 09:04:00 Test Item Value Reference Range Interpretation Comments MCV (test code = MCV) 106.3 80.0-94.0 [facility] CenterWrckvhtERIZHIWESW3558-25-34 09:04:00 Test Item Value Reference Range Interpretation Comments MCH (test code = MCH) 36.1 pg 27.0-31.0 [facility] CenterDxqcnqxCZAPOMVJCC3914-45-87 09:04:00 Test Item Value Reference Range Interpretation Comments MCHC (test code = MCHC) 33.9 32.0-36.0 [facility] CenterFrxvjtrEECHWZPAVF8162-86-66 09:04:00 Test Item Value Reference Range Interpretation Comments RDW (test code = RDW) 23.9 11.5-14.5 [facility] CenterMwhbxwdWSTHYTZLGT1573-71-39 09:04:00 Test Item Value Reference Range Interpretation Comments Platelet (test code = Platelet) 133 133-450 [facility] CenterCvnxbhsRNMKTTYPZY1449-70-55 09:04:00 Test Item Value Reference Range Interpretation Comments MPV (test code = MPV) 8.1 7.4-10.4 [place] 526272-07-18 09:04:00 Test Item Value Reference Range Interpretation Comments Segs (test code = Segs) 60.8 45.0-75.0 [facility] CenterHwxhunqTGULLUGCHS3037-89-71 09:04:00 Test Item Value Reference Range Interpretation Comments Lymphocytes (test code = Lymphocytes) 22.3 20.0-40.0 [place] [address]-07-18 09:04:00 Test Item Value Reference Range Interpretation Comments Monocytes (test code = Monocytes) 13.9 2.0-12.0 [place] 526272-07-18 09:04:00 Test Item Value Reference Range Interpretation Comments Eosinophils (test code = 2.6 See_Comment [A utomated message] The Eosinophils) system which ge nerated this result tra nsmitted reference range : <=4.0. The reference r samantha was not used to int erpret this result as normal/abnormal . [place] 526272-07-18 09:04:00 Test Item Value Reference Range Interpretation Comments Basophils (test code = 0.4 See_Comment [Aut omated message] The Basophils) system which ge nerated this result tra nsmitted reference range : <=1.0. The reference r samantha was not used to int erpret this result as normal/abnormal . [place] 526272-07-18 09:04:00 Test Item Value Reference Range Interpretation Comments Neutrophils # (test code = Neutrophils 2.2 1.5-8.1 #) [place] 526272-07-18 09:04:00 Test Item Value Reference Range Interpretation Comments Lymphocytes # (test code = Lymphocytes 0.8 1.0-5.5 #) [place] [address]-07-18 09:04:00 Test Item Value Reference Range Interpretation Comments Monocytes # (test code 0.5 See_Comment [Aut omated message] The = Monocytes #) system which generated this result tra nsmitted reference range : <=0.8. The reference r samantha was not used to int erpret this result as normal/abnormal . [place] 526272-07-18 09:04:00 Test Item Value Reference Range Interpretation Comments Eosinophils # (test code 0.1 See_Comment [A utomated message] The = Eosinophils #) system whic h generated this result tra nsmitted reference range : <=0.5. The reference r samantha was not used to int erpret this result as normal/abnormal . [place] 526272-07-18 09:04:00 Test Item Value Reference Range Interpretation Comments Macrocyte (test code = 1+ *ABN*(12/15/21 Macrocyte) 4:04 AM) [facility]woodEagjnwoQKSQCWIXRG7177-88-05 09:04:00 Test Item Value Reference Range Interpretation Comments C-REACTIVE PROTEIN (test code = 25.1 C-REACTIVE PROTEIN) [facility] KingwoodYrrdcjgYRLJPTBVJE5496-26-94 09:04:00 Test Item Value Reference Range Interpretation Comments Vanco Lvl (test code = Vanco Lvl) 15.2 [facility]2022-07-18 09:04:00 Test Item Value Reference Range Interpretation Comments Glucose Lvl (test code = Glucose Lvl) 59 70-99 [facility]2022-07-18 09:04:00 Test Item Value Reference Range Interpretation Comments BUN (test code = BUN) 41 7-22 [place] 510012-07-18 09:04:00 Test Item Value Reference Range Interpretation Comments Creatinine Lvl (test code = Creatinine 7.00 0.50-1.40 Lvl) [facility]2022-07-18 09:04:00 Test Item Value Reference Range Interpretation Comments Sodium Lvl (test code = Sodium Lvl) 134 135-145 [facility]2022-07-18 09:04:00 Test Item Value Reference Range Interpretation Comments Potassium Lvl (test code = Potassium 4.0 3.5-5.1 Lvl) [facility]2022-07-18 09:04:00 Test Item Value Reference Range Interpretation Comments Chloride Lvl (test code = Chloride Lvl) 102 95-109 [facility]2022-07-18 09:04:00 Test Item Value Reference Range Interpretation Comments CO2 (test code = CO2) 25 24-32 [facility]2022-07-18 09:04:00 Test Item Value Reference Range Interpretation Comments Calcium Lvl (test code = Calcium Lvl) 9.1 8.5-10.5 [place] 510012-07-18 09:04:00 Test Item Value Reference Range Interpretation Comments Total Protein (test code = Total 6.2 6.4-8.4 Protein) [facility]2022-07-18 09:04:00 Test Item Value Reference Range Interpretation Comments Albumin Lvl (test code = Albumin Lvl) 2.8 3.5-5.0 [place] 510012-07-18 09:04:00 Test Item Value Reference Range Interpretation Comments ALT (test code = ALT) 78 See_Comment [Auto mated message] The system which ge nerated this result transmit swathi reference range : <=65. The reference range was not used to interpr et this result as deny l/abnormal. [facility] [employer] [id number] 09:04:00 Test Item Value Reference Range Interpretation Comments AST (test code = AST) 117 See_Comment [Auto mated message] The system which ge nerated this result transmit swathi reference range : <=37. The reference range was not used to interpr et this result as deny l/abnormal. [employer] [id number] 09:04:00 Test Item Value Reference Range Interpretation Comments Alk Phos (test code = Alk Phos) 251 39-136 [facility] [employer] [id number] 09:04:00 Test Item Value Reference Range Interpretation Comments Bili Total (test code = Bili Total) 0.9 0.2-1.3 [facility] [employer] [id number] 09:04:00 Test Item Value Reference Range Interpretation Comments AGAP (test code = AGAP) 11.0 10.0-20.0 [facility] [employer] [id number] 09:04:00 Test Item Value Reference Range Interpretation Comments B/C Ratio (test code = B/C Ratio) 6 1 6-25 [facility] [employer] [id number] 09:04:00 Test Item Value Reference Range Interpretation Comments Globulin (test code = Globulin) 3.4 2.7-4.2 [facility] [employer] [id number] 09:04:00 Test Item Value Reference Range Interpretation Comments Glucose Lvl (test code = Glucose Lvl) 59 70-99 [facility] [employer] [id number] 09:04:00 Test Item Value Reference Range Interpretation Comments BUN (test code = BUN) 41 7-22 [facility] [employer] [id number] 09:04:00 Test Item Value Reference Range Interpretation Comments Creatinine Lvl (test code = Creatinine 7.00 0.50-1.40 Lvl) [facility] [employer] [id number] 09:04:00 Test Item Value Reference Range Interpretation Comments Sodium Lvl (test code = Sodium Lvl) 134 135-145 [place] 510012-07-18 09:04:00 Test Item Value Reference Range Interpretation Comments Potassium Lvl (test code = Potassium 4.0 3.5-5.1 Lvl) [place] 510012-07-18 09:04:00 Test Item Value Reference Range Interpretation Comments Chloride Lvl (test code = Chloride Lvl) 102 95-109 [place] 510012-07-18 09:04:00 Test Item Value Reference Range Interpretation Comments CO2 (test code = CO2) 25 24-32 [place] 510012-07-18 09:04:00 Test Item Value Reference Range Interpretation Comments Calcium Lvl (test code = Calcium Lvl) 9.1 8.5-10.5 [place] 510012-07-18 09:04:00 Test Item Value Reference Range Interpretation Comments Total Protein (test code = Total 6.2 6.4-8.4 Protein) [place] 510012-07-18 09:04:00 Test Item Value Reference Range Interpretation Comments A/G Ratio (test code = A/G Ratio) 0.8 1 0.7-1.6 [place] 510012-07-18 09:04:00 Test Item Value Reference Range Interpretation Comments Albumin Lvl (test code = Albumin Lvl) 2.8 3.5-5.0 [place] 510012-07-18 09:04:00 Test Item Value Reference Range Interpretation Comments ALT (test code = ALT) 78 See_Comment [Auto mated message] The system which ge nerated this result transmit swathi reference range : <=65. The reference range was not used to interpr et this result as deny l/abnormal. [place] 510012-07-18 09:04:00 Test Item Value Reference Range Interpretation Comments AST (test code = AST) 117 See_Comment [Auto mated message] The system which ge nerated this result transmit swathi reference range : <=37. The reference range was not used to interpr et this result as deny l/abnormal. [place] 510012-07-18 09:04:00 Test Item Value Reference Range Interpretation Comments Alk Phos (test code = Alk Phos) 251 39-136 [place] 510012-07-18 09:04:00 Test Item Value Reference Range Interpretation Comments Bili Total (test code = Bili Total) 0.9 0.2-1.3 [place] 510012-07-18 09:04:00 Test Item Value Reference Range Interpretation Comments AGAP (test code = AGAP) 11.0 10.0-20.0 [place] 510012-07-18 09:04:00 Test Item Value Reference Range Interpretation Comments B/C Ratio (test code = B/C Ratio) 6 1 6-25 [place] 510012-07-18 09:04:00 Test Item Value Reference Range Interpretation Comments Globulin (test code = Globulin) 3.4 2.7-4.2 [place] 510012-07-18 09:04:00 Test Item Value Reference Range Interpretation Comments A/G Ratio (test code = A/G Ratio) 0.8 1 0.7-1.6 [place] 510012-07-18 09:04:00 Test Item Value Reference Range Interpretation Comments eGFR (test code = eGFR) 8 [facility]2022-07-18 09:04:00 Test Item Value Reference Range Interpretation Comments eGFR (test code = eGFR) 8 [place] 526272-07-18 09:04:00 Test Item Value Reference Range Interpretation Comments D-Dimer (test code = D-Dimer) 3.03 [place] [address]-07-18 09:04:00 Test Item Value Reference Range Interpretation Comments WBC (test code = WBC) 3.6 3.7-10.4 [place] 526272-07-18 09:04:00 Test Item Value Reference Range Interpretation Comments RBC (test code = RBC) 2.07 4.70-6.10 [place] [address]-07-18 09:04:00 Test Item Value Reference Range Interpretation Comments Hgb (test code = Hgb) 7.5 14.0-18.0 [place] [address]-07-18 09:04:00 Test Item Value Reference Range Interpretation Comments Hct (test code = Hct) 22.0 42.0-54.0 [place] [address]-07-18 09:04:00 Test Item Value Reference Range Interpretation Comments MCV (test code = MCV) 106.3 80.0-94.0 [place] [address]-07-18 09:04:00 Test Item Value Reference Range Interpretation Comments MCH (test code = MCH) 36.1 pg 27.0-31.0 [place] 526272-07-18 09:04:00 Test Item Value Reference Range Interpretation Comments MCHC (test code = MCHC) 33.9 32.0-36.0 [place] 526272-07-18 09:04:00 Test Item Value Reference Range Interpretation Comments RDW (test code = RDW) 23.9 11.5-14.5 [place] 526272-07-18 09:04:00 Test Item Value Reference Range Interpretation Comments Platelet (test code = Platelet) 133 133-450 [place] 526272-07-18 09:04:00 Test Item Value Reference Range Interpretation Comments D-Dimer (test code = D-Dimer) 3.03 [place] 526272-07-18 09:04:00 Test Item Value Reference Range Interpretation Comments MPV (test code = MPV) 8.1 7.4-10.4 [place] 526272-07-18 09:04:00 Test Item Value Reference Range Interpretation Comments Segs (test code = Segs) 60.8 45.0-75.0 [place] 526272-07-18 09:04:00 Test Item Value Reference Range Interpretation Comments Lymphocytes (test code = Lymphocytes) 22.3 20.0-40.0 [place] 526272-07-18 09:04:00 Test Item Value Reference Range Interpretation Comments Monocytes (test code = Monocytes) 13.9 2.0-12.0 [place] [address]-07-18 09:04:00 Test Item Value Reference Range Interpretation Comments Eosinophils (test code = 2.6 See_Comment [A utomated message] The Eosinophils) system which ge nerated this result tra nsmitted reference range : <=4.0. The reference r samantha was not used to int erpret this result as normal/abnormal . [place] 526272-07-18 09:04:00 Test Item Value Reference Range Interpretation Comments Basophils (test code = 0.4 See_Comment [Aut omated message] The Basophils) system which ge nerated this result tra nsmitted reference range : <=1.0. The reference r samantha was not used to int erpret this result as normal/abnormal . [facility] [id number] 09:04:00 Test Item Value Reference Range Interpretation Comments Neutrophils # (test code = Neutrophils 2.2 1.5-8.1 #) [facility] CenterVeryrbyPPDPGZTFLG2354-26-09 09:04:00 Test Item Value Reference Range Interpretation Comments Lymphocytes # (test code = Lymphocytes 0.8 1.0-5.5 #) [facility] C[id number] 09:04:00 Test Item Value Reference Range Interpretation Comments Monocytes # (test code 0.5 See_Comment [Aut omated message] The = Monocytes #) system which generated this result tra nsmitted reference range : <=0.8. The reference r samantha was not used to int erpret this result as normal/abnormal . [facility] CenterGyhbnfyIHZWADUPRF6561-65-74 09:04:00 Test Item Value Reference Range Interpretation Comments Eosinophils # (test code 0.1 See_Comment [A utomated message] The = Eosinophils #) system whic h generated this result tra nsmitted reference range : <=0.5. The reference r samantha was not used to int erpret this result as normal/abnormal . [facility] CenterVbfnbvvETAHYIQZCH2859-47-21 09:04:00 Test Item Value Reference Range Interpretation Comments WBC (test code = WBC) 3.6 3.7-10.4 [facility] CenterNuoucwcZZVPMUKZLX3515-84-77 09:04:00 Test Item Value Reference Range Interpretation Comments Macrocyte (test code = 1+ *ABN*(12/15/21 Macrocyte) 4:04 AM) [facility]RobjrfhHOBMWBWWTJ3527-37-87 09:04:00 Test Item Value Reference Range Interpretation Comments C-REACTIVE PROTEIN (test code = 25.1 C-REACTIVE PROTEIN) [facility]woodSikamntFGZZRJPFPW7891-88-37 09:04:00 Test Item Value Reference Range Interpretation Comments Vanco Lvl (test code = Vanco Lvl) 15.2 [facility] CenterFjohypaRWNXTTNQGD7519-75-48 09:04:00 Test Item Value Reference Range Interpretation Comments RBC (test code = RBC) 2.07 4.70-6.10 [facility] CenterCapnfmuRYPJVKXMXE3042-64-51 09:04:00 Test Item Value Reference Range Interpretation Comments Hgb (test code = Hgb) 7.5 14.0-18.0 [place] 526272-07-18 09:04:00 Test Item Value Reference Range Interpretation Comments Hct (test code = Hct) 22.0 42.0-54.0 [place] 526272-07-18 09:04:00 Test Item Value Reference Range Interpretation Comments MCV (test code = MCV) 106.3 80.0-94.0 [place] 526272-07-18 09:04:00 Test Item Value Reference Range Interpretation Comments MCH (test code = MCH) 36.1 pg 27.0-31.0 [place] 526272-07-18 09:04:00 Test Item Value Reference Range Interpretation Comments MCHC (test code = MCHC) 33.9 32.0-36.0 [place] 526272-07-18 09:04:00 Test Item Value Reference Range Interpretation Comments RDW (test code = RDW) 23.9 11.5-14.5 [place] 526272-07-18 09:04:00 Test Item Value Reference Range Interpretation Comments Platelet (test code = Platelet) 133 133-450 [facility] CenterEurayqkGUVHHKJEOM7085-61-93 09:04:00 Test Item Value Reference Range Interpretation Comments MPV (test code = MPV) 8.1 7.4-10.4 [place] 526272-07-18 09:04:00 Test Item Value Reference Range Interpretation Comments Segs (test code = Segs) 60.8 45.0-75.0 [facility] CenterBevsjfdREYSSTMIKW7319-54-47 09:04:00 Test Item Value Reference Range Interpretation Comments Lymphocytes (test code = Lymphocytes) 22.3 20.0-40.0 [place] 526272-07-18 09:04:00 Test Item Value Reference Range Interpretation Comments Monocytes (test code = Monocytes) 13.9 2.0-12.0 [place] 526272-07-18 09:04:00 Test Item Value Reference Range Interpretation Comments Eosinophils (test code = 2.6 See_Comment [A utomated message] The Eosinophils) system which ge nerated this result tra nsmitted reference range : <=4.0. The reference r samantha was not used to int erpret this result as normal/abnormal . [facility] KingwoodFlhewpxZOFWDAJUZM3281-23-46 09:04:00 Test Item Value Reference Range Interpretation Comments Basophils (test code = 0.4 See_Comment [Aut omated message] The Basophils) system which ge nerated this result tra nsmitted reference range : <=1.0. The reference r samantha was not used to int erpret this result as normal/abnormal . [facility]pBYRHEVIENV3942-69-77 09:04:00 Test Item Value Reference Range Interpretation Comments Neutrophils # (test code = Neutrophils 2.2 1.5-8.1 #) [facility] CenterWflfnuiILFBTQIKKL4444-92-69 09:04:00 Test Item Value Reference Range Interpretation Comments Lymphocytes # (test code = Lymphocytes 0.8 1.0-5.5 #) [facility] CenterFpopzcrTMRGIFHVZD3323-25-90 09:04:00 Test Item Value Reference Range Interpretation Comments Monocytes # (test code 0.5 See_Comment [Aut omated message] The = Monocytes #) system which generated this result tra nsmitted reference range : <=0.8. The reference r samantha was not used to int erpret this result as normal/abnormal . [facility] CenterFbcjcoxXXGGHWBQHQ0259-62-06 09:04:00 Test Item Value Reference Range Interpretation Comments Eosinophils # (test code 0.1 See_Comment [A utomated message] The = Eosinophils #) system whic h generated this result tra nsmitted reference range : <=0.5. The reference r samantha was not used to int erpret this result as normal/abnormal . [facility] KingwoodQvhndhoDTYIPTFLFX8012-46-15 09:04:00 Test Item Value Reference Range Interpretation Comments Macrocyte (test code = 1+ *ABN*(12/15/21 Macrocyte) 4:04 AM) [facility] KingwoodXumdlehSHQTDFGUIK2844-60-72 09:04:00 Test Item Value Reference Range Interpretation Comments C-REACTIVE PROTEIN (test code = 25.1 C-REACTIVE PROTEIN) [facility] KingwoodQocwqqtSFQPOYQRRI4300-99-18 09:04:00 Test Item Value Reference Range Interpretation Comments Vanco Lvl (test code = Vanco Lvl) 15.2 [facility] KingwoodCHEM [id number] 09:04:00 Test Item Value Reference Range Interpretation Comments Glucose Lvl (test code = Glucose Lvl) 59 70-99 [place] 510012-07-18 09:04:00 Test Item Value Reference Range Interpretation Comments BUN (test code = BUN) 41 7-22 [place] [address]-07-18 09:04:00 Test Item Value Reference Range Interpretation Comments Creatinine Lvl (test code = Creatinine 7.00 0.50-1.40 Lvl) [place] [address]-07-18 09:04:00 Test Item Value Reference Range Interpretation Comments Sodium Lvl (test code = Sodium Lvl) 134 135-145 [place] [address]-07-18 09:04:00 Test Item Value Reference Range Interpretation Comments Potassium Lvl (test code = Potassium 4.0 3.5-5.1 Lvl) [place] [address]-07-18 09:04:00 Test Item Value Reference Range Interpretation Comments Chloride Lvl (test code = Chloride Lvl) 102 95-109 [place] 510012-07-18 09:04:00 Test Item Value Reference Range Interpretation Comments CO2 (test code = CO2) 25 24-32 [place] [address]-07-18 09:04:00 Test Item Value Reference Range Interpretation Comments Calcium Lvl (test code = Calcium Lvl) 9.1 8.5-10.5 [place] [address]-07-18 09:04:00 Test Item Value Reference Range Interpretation Comments Total Protein (test code = Total 6.2 6.4-8.4 Protein) [place] 510012-07-18 09:04:00 Test Item Value Reference Range Interpretation Comments Albumin Lvl (test code = Albumin Lvl) 2.8 3.5-5.0 [place] [address]-07-18 09:04:00 Test Item Value Reference Range Interpretation Comments ALT (test code = ALT) 78 See_Comment [Auto mated message] The system which ge nerated this result transmit swathi reference range : <=65. The reference range was not used to interpr et this result as deny l/abnormal. [place] [address]-07-18 09:04:00 Test Item Value Reference Range Interpretation Comments AST (test code = AST) 117 See_Comment [Auto mated message] The system which ge nerated this result transmit swathi reference range : <=37. The reference range was not used to interpr et this result as deny l/abnormal. [place] 510012-07-18 09:04:00 Test Item Value Reference Range Interpretation Comments Alk Phos (test code = Alk Phos) 251 39-136 [place] 510012-07-18 09:04:00 Test Item Value Reference Range Interpretation Comments Bili Total (test code = Bili Total) 0.9 0.2-1.3 [place] 510012-07-18 09:04:00 Test Item Value Reference Range Interpretation Comments AGAP (test code = AGAP) 11.0 10.0-20.0 [place] 510012-07-18 09:04:00 Test Item Value Reference Range Interpretation Comments B/C Ratio (test code = B/C Ratio) 6 1 6-25 [place] [address]-07-18 09:04:00 Test Item Value Reference Range Interpretation Comments Globulin (test code = Globulin) 3.4 2.7-4.2 [place] 510012-07-18 09:04:00 Test Item Value Reference Range Interpretation Comments A/G Ratio (test code = A/G Ratio) 0.8 1 0.7-1.6 [place] [address]-07-18 09:04:00 Test Item Value Reference Range Interpretation Comments eGFR (test code = eGFR) 8 [place] 526272-07-18 09:04:00 Test Item Value Reference Range Interpretation Comments D-Dimer (test code = D-Dimer) 3.03 [place] 526272-07-18 09:04:00 Test Item Value Reference Range Interpretation Comments WBC (test code = WBC) 3.6 3.7-10.4 [place] [address]-07-18 09:04:00 Test Item Value Reference Range Interpretation Comments RBC (test code = RBC) 2.07 4.70-6.10 [place] [address]-07-18 09:04:00 Test Item Value Reference Range Interpretation Comments Hgb (test code = Hgb) 7.5 14.0-18.0 [place] [address]-07-18 09:04:00 Test Item Value Reference Range Interpretation Comments Hct (test code = Hct) 22.0 42.0-54.0 [place] [address]-07-18 09:04:00 Test Item Value Reference Range Interpretation Comments MCV (test code = MCV) 106.3 80.0-94.0 [place] [address]-07-18 09:04:00 Test Item Value Reference Range Interpretation Comments MCH (test code = MCH) 36.1 pg 27.0-31.0 [place] 526272-07-18 09:04:00 Test Item Value Reference Range Interpretation Comments MCHC (test code = MCHC) 33.9 32.0-36.0 [place] [address]-07-18 09:04:00 Test Item Value Reference Range Interpretation Comments RDW (test code = RDW) 23.9 11.5-14.5 [place] [address]-07-18 09:04:00 Test Item Value Reference Range Interpretation Comments Platelet (test code = Platelet) 133 133-450 [place] 526272-07-18 09:04:00 Test Item Value Reference Range Interpretation Comments MPV (test code = MPV) 8.1 7.4-10.4 [place] [address]-07-18 09:04:00 Test Item Value Reference Range Interpretation Comments Segs (test code = Segs) 60.8 45.0-75.0 [place] [address]-07-18 09:04:00 Test Item Value Reference Range Interpretation Comments Lymphocytes (test code = Lymphocytes) 22.3 20.0-40.0 [place] 526272-07-18 09:04:00 Test Item Value Reference Range Interpretation Comments Monocytes (test code = Monocytes) 13.9 2.0-12.0 [place] [address]-07-18 09:04:00 Test Item Value Reference Range Interpretation Comments Eosinophils (test code = 2.6 See_Comment [A utomated message] The Eosinophils) system which ge nerated this result tra nsmitted reference range : <=4.0. The reference r samantha was not used to int erpret this result as normal/abnormal . [place] [address]-07-18 09:04:00 Test Item Value Reference Range Interpretation Comments Basophils (test code = 0.4 See_Comment [Aut omated message] The Basophils) system which ge nerated this result tra nsmitted reference range : <=1.0. The reference r samantha was not used to int erpret this result as normal/abnormal . [facility] CenterKnylmqvTRANLHREUP6584-64-38 09:04:00 Test Item Value Reference Range Interpretation Comments Neutrophils # (test code = Neutrophils 2.2 1.5-8.1 #) [facility] CenterDmnhkunSKTNOELMXH2564-21-97 09:04:00 Test Item Value Reference Range Interpretation Comments Lymphocytes # (test code = Lymphocytes 0.8 1.0-5.5 #) [facility] CenterZzemqguPIDTXWZTSP5458-33-67 09:04:00 Test Item Value Reference Range Interpretation Comments Monocytes # (test code 0.5 See_Comment [Aut omated message] The = Monocytes #) system which generated this result tra nsmitted reference range : <=0.8. The reference r samantha was not used to int erpret this result as normal/abnormal . [facility] CenterFeprextJNBSLYCQFG3452-77-10 09:04:00 Test Item Value Reference Range Interpretation Comments Eosinophils # (test code 0.1 See_Comment [A utomated message] The = Eosinophils #) system whic h generated this result tra nsmitted reference range : <=0.5. The reference r samantha was not used to int erpret this result as normal/abnormal . [facility] CenterVjrqvkpXYCGFJHSFI0076-77-07 09:04:00 Test Item Value Reference Range Interpretation Comments Macrocyte (test code = 1+ *ABN*(12/15/21 Macrocyte) 4:04 AM) [facility] KingwoodFvotecrPPISHMHJEJ3330-95-09 09:04:00 Test Item Value Reference Range Interpretation Comments C-REACTIVE PROTEIN (test code = 25.1 C-REACTIVE PROTEIN) [facility] KingwoodOajnkwlVUFGQXBEDE6102-28-20 09:04:00 Test Item Value Reference Range Interpretation Comments Vanco Lvl (test code = Vanco Lvl) 15.2 [facility]2022-07-18 09:04:00 Test Item Value Reference Range Interpretation Comments Glucose Lvl (test code = Glucose Lvl) 59 70-99 [place] 510012-07-18 09:04:00 Test Item Value Reference Range Interpretation Comments BUN (test code = BUN) 41 7-22 [place] 510012-07-18 09:04:00 Test Item Value Reference Range Interpretation Comments Creatinine Lvl (test code = Creatinine 7.00 0.50-1.40 Lvl) [place] 510012-07-18 09:04:00 Test Item Value Reference Range Interpretation Comments Sodium Lvl (test code = Sodium Lvl) 134 135-145 [place] 510012-07-18 09:04:00 Test Item Value Reference Range Interpretation Comments Potassium Lvl (test code = Potassium 4.0 3.5-5.1 Lvl) [place] 510012-07-18 09:04:00 Test Item Value Reference Range Interpretation Comments Chloride Lvl (test code = Chloride Lvl) 102 95-109 [place] 510012-07-18 09:04:00 Test Item Value Reference Range Interpretation Comments CO2 (test code = CO2) 25 24-32 [place] 510012-07-18 09:04:00 Test Item Value Reference Range Interpretation Comments Calcium Lvl (test code = Calcium Lvl) 9.1 8.5-10.5 [place] 510012-07-18 09:04:00 Test Item Value Reference Range Interpretation Comments Total Protein (test code = Total 6.2 6.4-8.4 Protein) [place] 510012-07-18 09:04:00 Test Item Value Reference Range Interpretation Comments Albumin Lvl (test code = Albumin Lvl) 2.8 3.5-5.0 [place] 510012-07-18 09:04:00 Test Item Value Reference Range Interpretation Comments ALT (test code = ALT) 78 See_Comment [Auto mated message] The system which [employer] nerated this result transmit swathi reference range : <=65. The reference range was not used to interpr et this result as deny l/abnormal. [place] 510012-07-18 09:04:00 Test Item Value Reference Range Interpretation Comments AST (test code = AST) 117 See_Comment [Auto mated message] The system which [employer] nerated this result transmit swathi reference range : <=37. The reference range was not used to interpr et this result as deny l/abnormal. [place] 510012-07-18 09:04:00 Test Item Value Reference Range Interpretation Comments Alk Phos (test code = Alk Phos) 251 39-136 [place] 510012-07-18 09:04:00 Test Item Value Reference Range Interpretation Comments Bili Total (test code = Bili Total) 0.9 0.2-1.3 [place] 510012-07-18 09:04:00 Test Item Value Reference Range Interpretation Comments AGAP (test code = AGAP) 11.0 10.0-20.0 [place] [address]-07-18 09:04:00 Test Item Value Reference Range Interpretation Comments B/C Ratio (test code = B/C Ratio) 6 1 6-25 [place] [address]-07-18 09:04:00 Test Item Value Reference Range Interpretation Comments Globulin (test code = Globulin) 3.4 2.7-4.2 [place] 510012-07-18 09:04:00 Test Item Value Reference Range Interpretation Comments A/G Ratio (test code = A/G Ratio) 0.8 1 0.7-1.6 [place] 510012-07-18 09:04:00 Test Item Value Reference Range Interpretation Comments eGFR (test code = eGFR) 8 [place] 526272-07-18 09:04:00 Test Item Value Reference Range Interpretation Comments D-Dimer (test code = D-Dimer) 3.03 [place] [address]-07-18 09:04:00 Test Item Value Reference Range Interpretation Comments WBC (test code = WBC) 3.6 3.7-10.4 [place] 526272-07-18 09:04:00 Test Item Value Reference Range Interpretation Comments RBC (test code = RBC) 2.07 4.70-6.10 [place] [address]-07-18 09:04:00 Test Item Value Reference Range Interpretation Comments Hgb (test code = Hgb) 7.5 14.0-18.0 [place] [address]-07-18 09:04:00 Test Item Value Reference Range Interpretation Comments Hct (test code = Hct) 22.0 42.0-54.0 [place] [address]-07-18 09:04:00 Test Item Value Reference Range Interpretation Comments MCV (test code = MCV) 106.3 80.0-94.0 [place] [address]-07-18 09:04:00 Test Item Value Reference Range Interpretation Comments MCH (test code = MCH) 36.1 pg 27.0-31.0 [place] 526272-07-18 09:04:00 Test Item Value Reference Range Interpretation Comments MCHC (test code = MCHC) 33.9 32.0-36.0 [place] 526272-07-18 09:04:00 Test Item Value Reference Range Interpretation Comments RDW (test code = RDW) 23.9 11.5-14.5 [place] 526272-07-18 09:04:00 Test Item Value Reference Range Interpretation Comments Platelet (test code = Platelet) 133 133-450 [facility]WxvoxwaQIJKWCDIJC3479-17-70 09:04:00 Test Item Value Reference Range Interpretation Comments MPV (test code = MPV) 8.1 7.4-10.4 [place] 526272-07-18 09:04:00 Test Item Value Reference Range Interpretation Comments Segs (test code = Segs) 60.8 45.0-75.0 [place] 526272-07-18 09:04:00 Test Item Value Reference Range Interpretation Comments Lymphocytes (test code = Lymphocytes) 22.3 20.0-40.0 [place] 526272-07-18 09:04:00 Test Item Value Reference Range Interpretation Comments Monocytes (test code = Monocytes) 13.9 2.0-12.0 [facility] CenterMmzqrhmHKVKNJZRAS9952-16-80 09:04:00 Test Item Value Reference Range Interpretation Comments Eosinophils (test code = 2.6 See_Comment [A utomated message] The Eosinophils) system which ge nerated this result tra nsmitted reference range : <=4.0. The reference r samantha was not used to int erpret this result as normal/abnormal . [place] 526272-07-18 09:04:00 Test Item Value Reference Range Interpretation Comments Basophils (test code = 0.4 See_Comment [Aut omated message] The Basophils) system which ge nerated this result tra nsmitted reference range : <=1.0. The reference r samantha was not used to int erpret this result as normal/abnormal . [place] 526272-07-18 09:04:00 Test Item Value Reference Range Interpretation Comments Neutrophils # (test code = Neutrophils 2.2 1.5-8.1 #) [facility] CenterFqzsocpQRXGNEOQTM0234-84-18 09:04:00 Test Item Value Reference Range Interpretation Comments Lymphocytes # (test code = Lymphocytes 0.8 1.0-5.5 #) [facility] CenterPgywwyfPMVVAWCGBD2946-39-31 09:04:00 Test Item Value Reference Range Interpretation Comments Monocytes # (test code 0.5 See_Comment [Aut omated message] The = Monocytes #) system which generated this result tra nsmitted reference range : <=0.8. The reference r samantha was not used to int erpret this result as normal/abnormal . [facility] CenterGzrfzaiBIVCHXBTNA7482-16-71 09:04:00 Test Item Value Reference Range Interpretation Comments Eosinophils # (test code 0.1 See_Comment [A utomated message] The = Eosinophils #) system whic h generated this result tra nsmitted reference range : <=0.5. The reference r samantha was not used to int erpret this result as normal/abnormal . [facility] CenterUvuslngDOXYZPYEQM3557-81-96 09:04:00 Test Item Value Reference Range Interpretation Comments Macrocyte (test code = 1+ *ABN*(12/15/21 Macrocyte) 4:04 AM) [facility]woodKmukyplYBADOUFCSQ7195-70-29 09:04:00 Test Item Value Reference Range Interpretation Comments C-REACTIVE PROTEIN (test code = 25.1 C-REACTIVE PROTEIN) [facility]woodPnppgreLKIFNZTOFH0544-86-70 09:04:00 Test Item Value Reference Range Interpretation Comments Vanco Lvl (test code = Vanco Lvl) 15.2 [facility]2022-07-18 09:04:00 Test Item Value Reference Range Interpretation Comments Glucose Lvl (test code = Glucose Lvl) 59 70-99 [facility]2022-07-18 09:04:00 Test Item Value Reference Range Interpretation Comments BUN (test code = BUN) 41 7-22 [place] 510012-07-18 09:04:00 Test Item Value Reference Range Interpretation Comments Creatinine Lvl (test code = Creatinine 7.00 0.50-1.40 Lvl) [facility]2022-07-18 09:04:00 Test Item Value Reference Range Interpretation Comments Sodium Lvl (test code = Sodium Lvl) 134 135-145 [place] 510012-07-18 09:04:00 Test Item Value Reference Range Interpretation Comments Potassium Lvl (test code = Potassium 4.0 3.5-5.1 Lvl) [place] [address]-07-18 09:04:00 Test Item Value Reference Range Interpretation Comments Chloride Lvl (test code = Chloride Lvl) 102 95-109 [place] [address]-07-18 09:04:00 Test Item Value Reference Range Interpretation Comments CO2 (test code = CO2) 25 24-32 [place] [address]-07-18 09:04:00 Test Item Value Reference Range Interpretation Comments Calcium Lvl (test code = Calcium Lvl) 9.1 8.5-10.5 [place] [address]-07-18 09:04:00 Test Item Value Reference Range Interpretation Comments Total Protein (test code = Total 6.2 6.4-8.4 Protein) [place] [address]-07-18 09:04:00 Test Item Value Reference Range Interpretation Comments Albumin Lvl (test code = Albumin Lvl) 2.8 3.5-5.0 [place] [address]-07-18 09:04:00 Test Item Value Reference Range Interpretation Comments ALT (test code = ALT) 78 See_Comment [Auto mated message] The system which ge nerated this result transmit swathi reference range : <=65. The reference range was not used to interpr et this result as deny l/abnormal. [place] 510012-07-18 09:04:00 Test Item Value Reference Range Interpretation Comments AST (test code = AST) 117 See_Comment [Auto mated message] The system which ge nerated this result transmit swathi reference range : <=37. The reference range was not used to interpr et this result as deny l/abnormal. [place] 510012-07-18 09:04:00 Test Item Value Reference Range Interpretation Comments Alk Phos (test code = Alk Phos) 251 39-136 [place] 510012-07-18 09:04:00 Test Item Value Reference Range Interpretation Comments Bili Total (test code = Bili Total) 0.9 0.2-1.3 [place] [address]-07-18 09:04:00 Test Item Value Reference Range Interpretation Comments AGAP (test code = AGAP) 11.0 10.0-20.0 [facility]2022-07-18 09:04:00 Test Item Value Reference Range Interpretation Comments B/C Ratio (test code = B/C Ratio) 6 1 6-25 [place] 510012-07-18 09:04:00 Test Item Value Reference Range Interpretation Comments Globulin (test code = Globulin) 3.4 2.7-4.2 [facility]2022-07-18 09:04:00 Test Item Value Reference Range Interpretation Comments A/G Ratio (test code = A/G Ratio) 0.8 1 0.7-1.6 [place] 510012-07-18 09:04:00 Test Item Value Reference Range Interpretation Comments eGFR (test code = eGFR) 8 [facility] CenterPlbgdraKXHVMFXQRU1028-33-81 09:04:00 Test Item Value Reference Range Interpretation Comments D-Dimer (test code = D-Dimer) 3.03 [facility] CenterYpkuvlsGPEAYDMEWW4824-67-17 09:04:00 Test Item Value Reference Range Interpretation Comments WBC (test code = WBC) 3.6 3.7-10.4 [facility] CenterQojgfjiVVWHADOYBZ2311-49-44 09:04:00 Test Item Value Reference Range Interpretation Comments RBC (test code = RBC) 2.07 4.70-6.10 [facility] CenterMcaujdjPFUSNRRUNZ0657-93-04 09:04:00 Test Item Value Reference Range Interpretation Comments Hgb (test code = Hgb) 7.5 14.0-18.0 [facility] CenterAcervcpNNYPKYNXIA6364-86-50 09:04:00 Test Item Value Reference Range Interpretation Comments Hct (test code = Hct) 22.0 42.0-54.0 [place] 526272-07-18 09:04:00 Test Item Value Reference Range Interpretation Comments MCV (test code = MCV) 106.3 80.0-94.0 [place] 526272-07-18 09:04:00 Test Item Value Reference Range Interpretation Comments MCH (test code = MCH) 36.1 pg 27.0-31.0 [facility] CenterIsgjlfpADPOENJGJP7883-01-87 09:04:00 Test Item Value Reference Range Interpretation Comments MCHC (test code = MCHC) 33.9 32.0-36.0 [place] [address]-07-18 09:04:00 Test Item Value Reference Range Interpretation Comments RDW (test code = RDW) 23.9 11.5-14.5 [place] 526272-07-18 09:04:00 Test Item Value Reference Range Interpretation Comments Platelet (test code = Platelet) 133 133-450 [place] 526272-07-18 09:04:00 Test Item Value Reference Range Interpretation Comments MPV (test code = MPV) 8.1 7.4-10.4 [place] 526272-07-18 09:04:00 Test Item Value Reference Range Interpretation Comments Segs (test code = Segs) 60.8 45.0-75.0 [place] [address]-07-18 09:04:00 Test Item Value Reference Range Interpretation Comments Lymphocytes (test code = Lymphocytes) 22.3 20.0-40.0 [place] 526272-07-18 09:04:00 Test Item Value Reference Range Interpretation Comments Monocytes (test code = Monocytes) 13.9 2.0-12.0 [place] 526272-07-18 09:04:00 Test Item Value Reference Range Interpretation Comments Eosinophils (test code = 2.6 See_Comment [A utomated message] The Eosinophils) system which ge nerated this result tra nsmitted reference range : <=4.0. The reference r samantha was not used to int erpret this result as normal/abnormal . [facility] CenterSwvhyqgUHBZWSPGYF9032-60-88 09:04:00 Test Item Value Reference Range Interpretation Comments Basophils (test code = 0.4 See_Comment [Aut omated message] The Basophils) system which ge nerated this result tra nsmitted reference range : <=1.0. The reference r samantha was not used to int erpret this result as normal/abnormal . [place] 526272-07-18 09:04:00 Test Item Value Reference Range Interpretation Comments Neutrophils # (test code = Neutrophils 2.2 1.5-8.1 #) [place] [address]-07-18 09:04:00 Test Item Value Reference Range Interpretation Comments Lymphocytes # (test code = Lymphocytes 0.8 1.0-5.5 #) [place] 526272-07-18 09:04:00 Test Item Value Reference Range Interpretation Comments Monocytes # (test code 0.5 See_Comment [Aut omated message] The = Monocytes #) system which generated this result tra nsmitted reference range : <=0.8. The reference r samantha was not used to int erpret this result as normal/abnormal . [facility]LYT[facility]UTKN2332[facility]:04:00 Test Item Value Reference Range Interpretation Comments Eosinophils # (test code 0.1 See_Comment [A utomated message] The = Eosinophils #) system whic h generated this result tra nsmitted reference range : <=0.5. The reference r samantha was not used to int erpret this result as normal/abnormal . [facility] HospitalWfljiqwTHHGFWEKPZ4066-44-27 09:04:00 Test Item Value Reference Range Interpretation Comments Macrocyte (test code = 1+ *ABN*(12/15/21 Macrocyte) 4:04 AM) [facility]woodWkckcxbTARZLNPXKL9408-40-79 09:04:00 Test Item Value Reference Range Interpretation Comments C-REACTIVE PROTEIN (test code = 25.1 C-REACTIVE PROTEIN) [facility] KingwoodYyqvyfvCPOYPYJKGZ5776-62-45 09:04:00 Test Item Value Reference Range Interpretation Comments Vanco Lvl (test code = Vanco Lvl) 15.2 [facility]annBACT[facility] - [id number] 00:29:00 Test Item Value Reference Range Interpretation Comments MRSA by PCR (test Negative (12/14/21 7:29 code = MRSA by PCR) PM) [facility]annBACTERIAL - [id number] 00:29:00 Test Item Value Reference Range Interpretation Comments MRSA by PCR (test Negative (12/14/21 7:29 code = MRSA by PCR) PM) [facility]annBACT[facility] - [id number] 00:29:00 Test Item Value Reference Range Interpretation Comments MRSA by PCR (test Negative (12/14/21 7:29 code = MRSA by PCR) PM) [facility]annBACT[facility] - [id number] 00:29:00 Test Item Value Reference Range Interpretation Comments MRSA by PCR (test Negative (12/14/21 7:29 code = MRSA by PCR) PM) [facility]annBA[facility] - [id number] 00:29:00 Test Item Value Reference Range Interpretation Comments MRSA by PCR (test Negative (12/14/21 7:29 code = MRSA by PCR) PM) [facility]annBA[facility] - [id number] 00:29:00 Test Item Value Reference Range Interpretation Comments MRSA by PCR (test Negative (12/14/21 7:29 code = MRSA by PCR) PM) [facility]annBA[facility] - [id number] 00:29:00 Test Item Value Reference Range Interpretation Comments MRSA by PCR (test Negative (12/14/21 7:29 code = MRSA by PCR) PM) [facility] CenterannNMLECULAR [id number] 23:56:00 Test Item Value Reference Range Interpretation Comments Source Respiratory Nasophrngl Swb Panel PCR (test code = *NA*(12/14/21 6:56 PM) Source Respiratory Panel PCR) [facility]annNMLECULAR [id number] 23:56:00 Test Item Value Reference Range Interpretation Comments Influenza A PCR (test Negative (12/14/21 6:56 code = Influenza A PCR) PM) [facility]annNMLE[facility]ULAR [id number] 23:56:00 Test Item Value Reference Range Interpretation Comments Influenza B PCR (test Negative (12/14/21 6:56 code = Influenza B PCR) PM) [facility]annNMLE[facility] [id number] 23:56:00 Test Item Value Reference Range Interpretation Comments RSV PCR (test code = Negative (12/14/21 6:56 RSV PCR) PM) [facility]annNMLEC[facility] [id number] 23:56:00 Test Item Value Reference Range Interpretation Comments Source Respiratory Nasophrngl Swb Panel PCR (test code = *NA*(12/14/21 6:56 PM) Source Respiratory Panel PCR) [facility]annNMLE[facility] [id number] 23:56:00 Test Item Value Reference Range Interpretation Comments Influenza A PCR (test Negative (12/14/21 6:56 code = Influenza A PCR) PM) [facility]annNMLE[facility] [id number] 23:56:00 Test Item Value Reference Range Interpretation Comments Influenza B PCR (test Negative (12/14/21 6:56 code = Influenza B PCR) PM) [facility]annNM[facility] [id number] 23:56:00 Test Item Value Reference Range Interpretation Comments RSV PCR (test code = Negative (12/14/21 6:56 RSV PCR) PM) [facility]annNMLE[facility] [id number] 23:56:00 Test Item Value Reference Range Interpretation Comments Source Respiratory Nasophrngl Swb Panel PCR (test code = *NA*(12/14/21 6:56 PM) Source Respiratory Panel PCR) [facility]annNMLECP[facility] [id number] 23:56:00 Test Item Value Reference Range Interpretation Comments Influenza A PCR (test Negative (12/14/21 6:56 code = Influenza A PCR) PM) [facility]annNMLE[facility] [id number] 23:56:00 Test Item Value Reference Range Interpretation Comments Influenza B PCR (test Negative (12/14/21 6:56 code = Influenza B PCR) PM) [facility] [id number] 23:56:00 Test Item Value Reference Range Interpretation Comments RSV PCR (test code = Negative (12/14/21 6:56 RSV PCR) PM) [facility] [id number] 23:56:00 Test Item Value Reference Range Interpretation Comments Source Respiratory Nasophrngl Swb Panel PCR (test code = *NA*(12/14/21 6:56 PM) Source Respiratory Panel PCR) [facility] [id number] 23:56:00 Test Item Value Reference Range Interpretation Comments Influenza A PCR (test Negative (12/14/21 6:56 code = Influenza A PCR) PM) [facility]annNMLECP[facility] [id number] 23:56:00 Test Item Value Reference Range Interpretation Comments Influenza B PCR (test Negative (12/14/21 6:56 code = Influenza B PCR) PM) [facility] [id number] 23:56:00 Test Item Value Reference Range Interpretation Comments RSV PCR (test code = Negative (12/14/21 6:56 RSV PCR) PM) [facility] [id number] 23:56:00 Test Item Value Reference Range Interpretation Comments Source Respiratory Nasophrngl Swb Panel PCR (test code = *NA*(12/14/21 6:56 PM) Source Respiratory Panel PCR) [facility] [id number] 23:56:00 Test Item Value Reference Range Interpretation Comments Influenza A PCR (test Negative (12/14/21 6:56 code = Influenza A PCR) PM) [facility]annNMLE[facility] [id number] 23:56:00 Test Item Value Reference Range Interpretation Comments Influenza B PCR (test Negative (12/14/21 6:56 code = Influenza B PCR) PM) [facility]annNMLE[facility] [id number] 23:56:00 Test Item Value Reference Range Interpretation Comments RSV PCR (test code = Negative (12/14/21 6:56 RSV PCR) PM) [facility]annNMLE[facility] [id number] 23:56:00 Test Item Value Reference Range Interpretation Comments Source Respiratory Nasophrngl Swb Panel PCR (test code = *NA*(12/14/21 6:56 PM) Source Respiratory Panel PCR) [facility]annNMLECP[facility] [id number] 23:56:00 Test Item Value Reference Range Interpretation Comments Influenza A PCR (test Negative (12/14/21 6:56 code = Influenza A PCR) PM) [facility]annNMLE[facility] [id number] 23:56:00 Test Item Value Reference Range Interpretation Comments Influenza B PCR (test Negative (12/14/21 6:56 code = Influenza B PCR) PM) [facility]annNMLE[facility] [id number] 23:56:00 Test Item Value Reference Range Interpretation Comments RSV PCR (test code = Negative (12/14/21 6:56 RSV PCR) PM) [facility]annNM[facility] [id number] 23:56:00 Test Item Value Reference Range Interpretation Comments Source Respiratory Nasophrngl Swb Panel PCR (test code = *NA*(12/14/21 6:56 PM) Source Respiratory Panel PCR) [facility]annNMLE[facility] [id number] 23:56:00 Test Item Value Reference Range Interpretation Comments Influenza A PCR (test Negative (12/14/21 6:56 code = Influenza A PCR) PM) [facility]annNMLE[facility] [id number] 23:56:00 Test Item Value Reference Range Interpretation Comments Influenza B PCR (test Negative (12/14/21 6:56 code = Influenza B PCR) PM) [facility]annNMLE[facility] [id number] 23:56:00 Test Item Value Reference Range Interpretation Comments RSV PCR (test code = Negative (12/14/21 6:56 RSV PCR) PM) [facility]2022-07-17 23:55:00 Test Item Value Reference Range Interpretation Comments BNP (test code = BNP) 1994 [facility]2022-07-17 23:55:00 Test Item Value Reference Range Interpretation Comments Procalcitonin Lvl (test 0.80 See_Comment [Au tomated message] code = Procalcitonin Lvl) Th e system which generated this result transmitted ref erence range: <=0.10. The reference range was not used to interpr et this result as normal/abnormal . [facility]2022-07-17 23:55:00 Test Item Value Reference Range Interpretation Comments BNP (test code = BNP) 1994 [facility]2022-07-17 23:55:00 Test Item Value Reference Range Interpretation Comments Procalcitonin Lvl (test 0.80 See_Comment [Au tomated message] code = Procalcitonin Lvl) Th e system which generated this result transmitted ref erence range: <=0.10. The reference range was not used to interpr et this result as normal/abnormal . [facility]2022-07-17 23:55:00 Test Item Value Reference Range Interpretation Comments BNP (test code = BNP) 1994 [facility]2022-07-17 23:55:00 Test Item Value Reference Range Interpretation Comments Procalcitonin Lvl (test 0.80 See_Comment [Au tomated message] code = Procalcitonin Lvl) Th e system which generated this result transmitted ref erence range: <=0.10. The reference range was not used to interpr et this result as normal/abnormal . [facility]woodA-V[facility] MediaWH[facility] [id number] 23:55:00 Test Item Value Reference Range Interpretation Comments BNP (test code = BNP) 1994 [facility]2022-07-17 23:55:00 Test Item Value Reference Range Interpretation Comments Procalcitonin Lvl (test 0.80 See_Comment [Au tomated message] code = Procalcitonin Lvl) Th e system which generated this result transmitted ref erence range: <=0.10. The reference range was not used to interpr et this result as normal/abnormal . [facility] [employer]2022-07-17 23:55:00 Test Item Value Reference Range Interpretation Comments BNP (test code = BNP) 1994 [facility] [employer] [id number] 23:55:00 Test Item Value Reference Range Interpretation Comments Procalcitonin Lvl (test 0.80 See_Comment [Au tomated message] code = Procalcitonin Lvl) e system which generated this result transmitted ref erence range: <=0.10. The reference range was not used to interpr et this result as normal/abnormal . [facility] [employer]2022-07-17 23:55:00 Test Item Value Reference Range Interpretation Comments BNP (test code = BNP) 1994 [facility] CenterAn[facility]St[facility] [id number] 23:55:00 Test Item Value Reference Range Interpretation Comments Procalcitonin Lvl (test 0.80 See_Comment [Au tomated message] code = Procalcitonin Lvl) e system which generated this result transmitted ref erence range: <=0.10. The reference range was not used to interpr et this result as normal/abnormal . [facility] [employer]2022-07-17 23:55:00 Test Item Value Reference Range Interpretation Comments BNP (test code = BNP) 1994 [facility] CenterAn[facility] [id number] 23:55:00 Test Item Value Reference Range Interpretation Comments Procalcitonin Lvl (test 0.80 See_Comment [Au tomated message] code = Procalcitonin Lvl) e system which generated this result transmitted ref erence range: <=0.10. The reference range was not used to interpr et this result as normal/abnormal . [facility] [employer]2022-07-17 21:26:00 Test Item Value Reference Range Interpretation Comments HS Troponin I 1 Hr (test code = HS 389 Troponin I 1 Hr) [facility] 21:26:00 Test Item Value Reference Range Interpretation Comments HS Troponin I 0 to 1 Hour Delta (test 49 1 code = HS Troponin I 0 to 1 Hour Delta) [facility]2022-[facility]-17 21:26:00 Test Item Value Reference Range Interpretation Comments HS Troponin I 1 Hr (test code = HS 389 Troponin I 1 Hr) [facility] HermannCARDIAC [id number] 21:26:00 Test Item Value Reference Range Interpretation Comments HS Troponin I 0 to 1 Hour Delta (test 49 1 code = HS Troponin I 0 to 1 Hour Delta) [facility] [id number] 21:26:00 Test Item Value Reference Range Interpretation Comments HS Troponin I 1 Hr (test code = HS 389 Troponin I 1 Hr) [facility] [id number] 21:26:00 Test Item Value Reference Range Interpretation Comments HS Troponin I 0 to 1 Hour Delta (test 49 1 code = HS Troponin I 0 to 1 Hour Delta) [facility] [id number] 21:26:00 Test Item Value Reference Range Interpretation Comments HS Troponin I 1 Hr (test code = HS 389 Troponin I 1 Hr) [facility] [id number] 21:26:00 Test Item Value Reference Range Interpretation Comments HS Troponin I 0 to 1 Hour Delta (test 49 1 code = HS Troponin I 0 to 1 Hour Delta) [facility] [id number] 21:26:00 Test Item Value Reference Range Interpretation Comments HS Troponin I 1 Hr (test code = HS 389 Troponin I 1 Hr) [facility] [id number] 21:26:00 Test Item Value Reference Range Interpretation Comments HS Troponin I 0 to 1 Hour Delta (test 49 1 code = HS Troponin I 0 to 1 Hour Delta) [facility] [id number] 21:26:00 Test Item Value Reference Range Interpretation Comments HS Troponin I 1 Hr (test code = HS 389 Troponin I 1 Hr) [facility] [id number] 21:26:00 Test Item Value Reference Range Interpretation Comments HS Troponin I 0 to 1 Hour Delta (test 49 1 code = HS Troponin I 0 to 1 Hour Delta) [facility] [id number] 21:26:00 Test Item Value Reference Range Interpretation Comments HS Troponin I 1 Hr (test code = HS 389 Troponin I 1 Hr) [facility] [id number] 21:26:00 Test Item Value Reference Range Interpretation Comments HS Troponin I 0 to 1 Hour Delta (test 49 1 code = HS Troponin I 0 to 1 Hour Delta) [facility] [id number] 20:10:00 Test Item Value Reference Range Interpretation Comments HS Troponin I Baseline (test code = HS 340 Troponin I Baseline) [facility] [id number] 20:10:00 Test Item Value Reference Range Interpretation Comments Glucose Lvl (test code = Glucose Lvl) 60 70-99 [facility]2022-07-17 20:10:00 Test Item Value Reference Range Interpretation Comments BUN (test code = BUN) 35 7-22 [facility]2022-07-17 20:10:00 Test Item Value Reference Range Interpretation Comments Creatinine Lvl (test code = Creatinine 6.10 0.50-1.40 Lvl) [facility]2022-07-17 20:10:00 Test Item Value Reference Range Interpretation Comments Sodium Lvl (test code = Sodium Lvl) 139 135-145 [facility]2022-07-17 20:10:00 Test Item Value Reference Range Interpretation Comments Potassium Lvl (test code = Potassium 3.1 3.5-5.1 Lvl) [facility]2022-07-17 20:10:00 Test Item Value Reference Range Interpretation Comments Chloride Lvl (test code = Chloride Lvl) 105 95-109 [facility]2022-07-17 20:10:00 Test Item Value Reference Range Interpretation Comments CO2 (test code = CO2) 28 24-32 [facility]2022-07-17 20:10:00 Test Item Value Reference Range Interpretation Comments Calcium Lvl (test code = Calcium Lvl) 8.1 8.5-10.5 [facility]2022-07-17 20:10:00 Test Item Value Reference Range Interpretation Comments Total Protein (test code = Total 5.8 6.4-8.4 Protein) [facility]2022-07-17 20:10:00 Test Item Value Reference Range Interpretation Comments Albumin Lvl (test code = Albumin Lvl) 2.6 3.5-5.0 [facility]2022-07-17 20:10:00 Test Item Value Reference Range Interpretation Comments ALT (test code = ALT) 74 See_Comment [Auto mated message] The system which ge nerated this result transmit swathi reference range : <=65. The reference range was not used to interpr et this result as deny l/abnormal. [place] 510012-07-17 20:10:00 Test Item Value Reference Range Interpretation Comments AST (test code = AST) 117 See_Comment [Auto mated message] The system which ge nerated this result transmit swathi reference range : <=37. The reference range was not used to interpr et this result as deny l/abnormal. [place] 510012-07-17 20:10:00 Test Item Value Reference Range Interpretation Comments Alk Phos (test code = Alk Phos) 241 39-136 [place] 510012-07-17 20:10:00 Test Item Value Reference Range Interpretation Comments Bili Total (test code = Bili Total) 0.8 0.2-1.3 [place] [address]-07-17 20:10:00 Test Item Value Reference Range Interpretation Comments AGAP (test code = AGAP) 9.1 10.0-20.0 [place] 510012-07-17 20:10:00 Test Item Value Reference Range Interpretation Comments B/C Ratio (test code = B/C Ratio) 6 1 6-25 [place] 510012-07-17 20:10:00 Test Item Value Reference Range Interpretation Comments Globulin (test code = Globulin) 3.2 2.7-4.2 [place] 510012-07-17 20:10:00 Test Item Value Reference Range Interpretation Comments A/G Ratio (test code = A/G Ratio) 0.8 1 0.7-1.6 [place] [address]-07-17 20:10:00 Test Item Value Reference Range Interpretation Comments eGFR (test code = eGFR) 9 [place] 526272-07-17 20:10:00 Test Item Value Reference Range Interpretation Comments WBC (test code = WBC) 4.3 3.7-10.4 [place] 526272-07-17 20:10:00 Test Item Value Reference Range Interpretation Comments RBC (test code = RBC) 2.17 4.70-6.10 [place] 526272-07-17 20:10:00 Test Item Value Reference Range Interpretation Comments Hgb (test code = Hgb) 7.7 14.0-18.0 [facility] CenterZkqrzudBYAZRLMXDM4327-29-01 20:10:00 Test Item Value Reference Range Interpretation Comments Hct (test code = Hct) 22.9 42.0-54.0 [facility] CenterXtcgcfeBMKLQEDXZF2587-27-71 20:10:00 Test Item Value Reference Range Interpretation Comments MCV (test code = MCV) 105.9 80.0-94.0 [facility] CenterBnryecqWVLPXRLCSY0957-66-30 20:10:00 Test Item Value Reference Range Interpretation Comments MCH (test code = MCH) 35.4 pg 27.0-31.0 [facility] CenterYyzsdugIAWKPTVIYZ6084-88-06 20:10:00 Test Item Value Reference Range Interpretation Comments MCHC (test code = MCHC) 33.4 32.0-36.0 [facility] CenterSgvtlyjHKEPIAGWTC0327-73-39 20:10:00 Test Item Value Reference Range Interpretation Comments RDW (test code = RDW) 23.6 11.5-14.5 [facility] CenterBtugbvtIDQIPJWJPC0711-93-40 20:10:00 Test Item Value Reference Range Interpretation Comments Platelet (test code = Platelet) 146 133-450 [facility] CenterRzejqxlDNKKXYLTVB9397-22-95 20:10:00 Test Item Value Reference Range Interpretation Comments MPV (test code = MPV) 8.0 7.4-10.4 [facility] CenterGledpgwBWXPEWFJRP0066-99-43 20:10:00 Test Item Value Reference Range Interpretation Comments Plt Morph (test code = Normal (12/14/21 3:10 Plt Morph) PM) [facility] CenterGpqjxjjZOYCOZXZCQ1810-30-71 20:10:00 Test Item Value Reference Range Interpretation Comments Segs (test code = Segs) 67.4 45.0-75.0 [place] 526272-07-17 20:10:00 Test Item Value Reference Range Interpretation Comments Lymphocytes (test code = Lymphocytes) 12.8 20.0-40.0 [place] 526272-07-17 20:10:00 Test Item Value Reference Range Interpretation Comments Monocytes (test code = Monocytes) 15.1 2.0-12.0 [place] 526272-07-17 20:10:00 Test Item Value Reference Range Interpretation Comments Eosinophils (test code = 4.1 See_Comment [A utomated message] The Eosinophils) system which ge nerated this result tra nsmitted reference range : <=4.0. The reference r samantha was not used to int erpret this result as normal/abnormal . [facility] CenterVbtjpwbMTTBSYGMQG8284-76-46 20:10:00 Test Item Value Reference Range Interpretation Comments Basophils (test code = 0.6 See_Comment [Aut omated message] The Basophils) system which ge nerated this result tra nsmitted reference range : <=1.0. The reference r samantha was not used to int erpret this result as normal/abnormal . [facility] CenterKlobjgxKPQLZQZQEW9345-18-09 20:10:00 Test Item Value Reference Range Interpretation Comments Neutrophils # (test code = Neutrophils 2.9 1.5-8.1 #) [facility] CenterIrdvbciFZSZTGRUAF3211-86-74 20:10:00 Test Item Value Reference Range Interpretation Comments Lymphocytes # (test code = Lymphocytes 0.5 1.0-5.5 #) [facility] CenterSkvfdkdEBDIOGOSDJ9007-86-57 20:10:00 Test Item Value Reference Range Interpretation Comments Monocytes # (test code 0.6 See_Comment [Aut omated message] The = Monocytes #) system which generated this result tra nsmitted reference range : <=0.8. The reference r samantha was not used to int erpret this result as normal/abnormal . [facility] CenterGjzvdcxGPRWIVHIWN0887-77-60 20:10:00 Test Item Value Reference Range Interpretation Comments Eosinophils # (test code 0.2 See_Comment [A utomated message] The = Eosinophils #) system ic h generated this result tra nsmitted reference range : <=0.5. The reference r samantha was not used to int erpret this result as normal/abnormal . [facility] CenterColptieVUUUAZXMLL9575-60-21 20:10:00 Test Item Value Reference Range Interpretation Comments Anisocyte (test code = 1+ *ABN*(12/14/21 Anisocyte) 3:10 PM) [facility] CenterHqdvorgORKFMKCNOY8372-31-67 20:10:00 Test Item Value Reference Range Interpretation Comments Macrocyte (test code = 1+ *ABN*(12/14/21 Macrocyte) 3:10 PM) [facility]woodGemcrauONMRAXZAXF4886-22-30 20:10:00 Test Item Value Reference Range Interpretation Comments Coronavirus (COVID-19) Detected MANUEL (test code = 4*ABN*(12/14/21 3:10 Coronavirus (COVID-19) PM) MANUEL) [facility]wood[facility] [id number] 20:10:00 Test Item Value Reference Range Interpretation Comments HS Troponin I Baseline (test code = HS 340 Troponin I Baseline) [facility] [id number] 20:10:00 Test Item Value Reference Range Interpretation Comments Glucose Lvl (test code = Glucose Lvl) 60 70-99 [facility] [id number] 20:10:00 Test Item Value Reference Range Interpretation Comments BUN (test code = BUN) 35 7-22 [facility] [id number] 20:10:00 Test Item Value Reference Range Interpretation Comments Creatinine Lvl (test code = Creatinine 6.10 0.50-1.40 Lvl) [facility] [id number] 20:10:00 Test Item Value Reference Range Interpretation Comments Sodium Lvl (test code = Sodium Lvl) 139 135-145 [facility] [id number] 20:10:00 Test Item Value Reference Range Interpretation Comments Potassium Lvl (test code = Potassium 3.1 3.5-5.1 Lvl) [facility] [id number] 20:10:00 Test Item Value Reference Range Interpretation Comments Chloride Lvl (test code = Chloride Lvl) 105 95-109 [facility] [id number] 20:10:00 Test Item Value Reference Range Interpretation Comments CO2 (test code = CO2) 28 24-32 [facility]2022-07-17 20:10:00 Test Item Value Reference Range Interpretation Comments Calcium Lvl (test code = Calcium Lvl) 8.1 8.5-10.5 [facility]2022-07-17 20:10:00 Test Item Value Reference Range Interpretation Comments Total Protein (test code = Total 5.8 6.4-8.4 Protein) [facility]2022-07-17 20:10:00 Test Item Value Reference Range Interpretation Comments Albumin Lvl (test code = Albumin Lvl) 2.6 3.5-5.0 [facility]2022-07-17 20:10:00 Test Item Value Reference Range Interpretation Comments ALT (test code = ALT) 74 See_Comment [Auto mated message] The system which ge nerated this result transmit swathi reference range : <=65. The reference range was not used to interpr et this result as deny l/abnormal. [facility] [employer] [id number] 20:10:00 Test Item Value Reference Range Interpretation Comments AST (test code = AST) 117 See_Comment [Auto mated message] The system which ge nerated this result transmit swathi reference range : <=37. The reference range was not used to interpr et this result as deny l/abnormal. [facility] [employer] [id number] 20:10:00 Test Item Value Reference Range Interpretation Comments Alk Phos (test code = Alk Phos) 241 39-136 [facility] [employer] [id number] 20:10:00 Test Item Value Reference Range Interpretation Comments Bili Total (test code = Bili Total) 0.8 0.2-1.3 [facility] CenterAn[facility] [id number] 20:10:00 Test Item Value Reference Range Interpretation Comments AGAP (test code = AGAP) 9.1 10.0-20.0 [facility] CenterAn[facility] [id number] 20:10:00 Test Item Value Reference Range Interpretation Comments B/C Ratio (test code = B/C Ratio) 6 1 6-25 [facility] CenterAn[facility] [id number] 20:10:00 Test Item Value Reference Range Interpretation Comments Globulin (test code = Globulin) 3.2 2.7-4.2 [facility] CenterAn[facility] [id number] 20:10:00 Test Item Value Reference Range Interpretation Comments A/G Ratio (test code = A/G Ratio) 0.8 1 0.7-1.6 [facility] Center[facility] [id number] 20:10:00 Test Item Value Reference Range Interpretation Comments eGFR (test code = eGFR) 9 [facility] CenterKeangcmSRGBGYJVAR4488-03-47 20:10:00 Test Item Value Reference Range Interpretation Comments WBC (test code = WBC) 4.3 3.7-10.4 [place] 526272-07-17 20:10:00 Test Item Value Reference Range Interpretation Comments RBC (test code = RBC) 2.17 4.70-6.10 [facility] CenterWalukvpCFGEXYLGIN4119-10-21 20:10:00 Test Item Value Reference Range Interpretation Comments Hgb (test code = Hgb) 7.7 14.0-18.0 [facility] CenterDbprlvnAXHVUKCKSE2226-62-34 20:10:00 Test Item Value Reference Range Interpretation Comments Hct (test code = Hct) 22.9 42.0-54.0 [facility] CenterGuminmlQEYOIXUOMU9715-35-18 20:10:00 Test Item Value Reference Range Interpretation Comments MCV (test code = MCV) 105.9 80.0-94.0 [facility] CenterRcfuonaRPHIMSCUJB6798-80-95 20:10:00 Test Item Value Reference Range Interpretation Comments MCH (test code = MCH) 35.4 pg 27.0-31.0 [facility] CenterNhudcpaJENIHRJZSA7065-66-30 20:10:00 Test Item Value Reference Range Interpretation Comments MCHC (test code = MCHC) 33.4 32.0-36.0 [facility] CenterNxgndawESLEPYWABD3301-27-41 20:10:00 Test Item Value Reference Range Interpretation Comments RDW (test code = RDW) 23.6 11.5-14.5 [facility] CenterAqaphjaYESAEGRTWA2499-54-66 20:10:00 Test Item Value Reference Range Interpretation Comments Platelet (test code = Platelet) 146 133-450 [facility] CenterKfpotssLXBFFQVGZT9114-87-08 20:10:00 Test Item Value Reference Range Interpretation Comments MPV (test code = MPV) 8.0 7.4-10.4 [facility] CenterBugepqpHLWWEYWQSP9187-16-65 20:10:00 Test Item Value Reference Range Interpretation Comments Plt Morph (test code = Normal (12/14/21 3:10 Plt Morph) PM) [facility] CenterKmoilvpFTMGSVVWVH0667-89-99 20:10:00 Test Item Value Reference Range Interpretation Comments Segs (test code = Segs) 67.4 45.0-75.0 [place] 526272-07-17 20:10:00 Test Item Value Reference Range Interpretation Comments Lymphocytes (test code = Lymphocytes) 12.8 20.0-40.0 [place] 526272-07-17 20:10:00 Test Item Value Reference Range Interpretation Comments Monocytes (test code = Monocytes) 15.1 2.0-12.0 [place] 526272-07-17 20:10:00 Test Item Value Reference Range Interpretation Comments Eosinophils (test code = 4.1 See_Comment [A utomated message] The Eosinophils) system which ge nerated this result tra nsmitted reference range : <=4.0. The reference r samantha was not used to int erpret this result as normal/abnormal . [facility] CenterRkxvcfmOBMTMWTTWZ8664-39-65 20:10:00 Test Item Value Reference Range Interpretation Comments Basophils (test code = 0.6 See_Comment [Aut omated message] The Basophils) system which ge nerated this result tra nsmitted reference range : <=1.0. The reference r samantha was not used to int erpret this result as normal/abnormal . [facility] CenterQtbwagnQMJQKRPSLS5021-75-35 20:10:00 Test Item Value Reference Range Interpretation Comments Neutrophils # (test code = Neutrophils 2.9 1.5-8.1 #) [facility] CenterCkllnahKPKFCPISRR4811-45-87 20:10:00 Test Item Value Reference Range Interpretation Comments Lymphocytes # (test code = Lymphocytes 0.5 1.0-5.5 #) [facility] CenterFzbovfcXBFGSCZMTS4607-94-44 20:10:00 Test Item Value Reference Range Interpretation Comments Monocytes # (test code 0.6 See_Comment [Aut omated message] The = Monocytes #) system which generated this result tra nsmitted reference range : <=0.8. The reference r samantha was not used to int erpret this result as normal/abnormal . [facility] CenterPinzrlkIIPKJFZDSS5956-92-26 20:10:00 Test Item Value Reference Range Interpretation Comments Eosinophils # (test code 0.2 See_Comment [A utomated message] The = Eosinophils #) system [facility] h generated this result tra nsmitted reference range : <=0.5. The reference r samantha was not used to int erpret this result as normal/abnormal . [facility] CenterIfkxdsvODODBZMUIC1868-17-06 20:10:00 Test Item Value Reference Range Interpretation Comments Anisocyte (test code = 1+ *ABN*(12/14/21 Anisocyte) 3:10 PM) [facility] CenterGaxgxoxCZZVCYAMJH5949-54-80 20:10:00 Test Item Value Reference Range Interpretation Comments Macrocyte (test code = 1+ *ABN*(12/14/21 Macrocyte) 3:10 PM) [facility] KingwoodGxijzgcFIROYJUDJE5145-06-75 20:10:00 Test Item Value Reference Range Interpretation Comments Coronavirus (COVID-19) Detected MANUEL (test code = 4*ABN*(12/14/21 3:10 Coronavirus (COVID-19) PM) MANUEL) [facility] [id number] 20:10:00 Test Item Value Reference Range Interpretation Comments HS Troponin I Baseline (test code = HS 340 Troponin I Baseline) [facility] [id number] 20:10:00 Test Item Value Reference Range Interpretation Comments Glucose Lvl (test code = Glucose Lvl) 60 70-99 [facility] [id number] 20:10:00 Test Item Value Reference Range Interpretation Comments BUN (test code = BUN) 35 7-22 [facility] [id number] 20:10:00 Test Item Value Reference Range Interpretation Comments Creatinine Lvl (test code = Creatinine 6.10 0.50-1.40 Lvl) [facility]2022-07-17 20:10:00 Test Item Value Reference Range Interpretation Comments Sodium Lvl (test code = Sodium Lvl) 139 135-145 [facility]2022-07-17 20:10:00 Test Item Value Reference Range Interpretation Comments Potassium Lvl (test code = Potassium 3.1 3.5-5.1 Lvl) [facility]2022-07-17 20:10:00 Test Item Value Reference Range Interpretation Comments Chloride Lvl (test code = Chloride Lvl) 105 95-109 [facility]2022-07-17 20:10:00 Test Item Value Reference Range Interpretation Comments CO2 (test code = CO2) 28 24-32 [facility]2022-07-17 20:10:00 Test Item Value Reference Range Interpretation Comments Calcium Lvl (test code = Calcium Lvl) 8.1 8.5-10.5 [facility]2022-07-17 20:10:00 Test Item Value Reference Range Interpretation Comments Total Protein (test code = Total 5.8 6.4-8.4 Protein) [facility]2022-07-17 20:10:00 Test Item Value Reference Range Interpretation Comments Albumin Lvl (test code = Albumin Lvl) 2.6 3.5-5.0 [facility]2022-07-17 20:10:00 Test Item Value Reference Range Interpretation Comments ALT (test code = ALT) 74 See_Comment [Auto mated message] The system which ge nerated this result transmit swathi reference range : <=65. The reference range was not used to interpr et this result as deny l/abnormal. [facility] [id number] 20:10:00 Test Item Value Reference Range Interpretation Comments AST (test code = AST) 117 See_Comment [Auto mated message] The system which ge nerated this result transmit swathi reference range : <=37. The reference range was not used to interpr et this result as deny l/abnormal. [facility] [id number] 20:10:00 Test Item Value Reference Range Interpretation Comments Alk Phos (test code = Alk Phos) 241 39-136 [facility]An[facility] [id number] 20:10:00 Test Item Value Reference Range Interpretation Comments Bili Total (test code = Bili Total) 0.8 0.2-1.3 [facility]Health[facility] [id number] 20:10:00 Test Item Value Reference Range Interpretation Comments AGAP (test code = AGAP) 9.1 10.0-20.0 [facility] [id number] 20:10:00 Test Item Value Reference Range Interpretation Comments B/C Ratio (test code = B/C Ratio) 6 1 6-25 [facility] [id number] 20:10:00 Test Item Value Reference Range Interpretation Comments Globulin (test code = Globulin) 3.2 2.7-4.2 [facility]An[facility] [id number] 20:10:00 Test Item Value Reference Range Interpretation Comments A/G Ratio (test code = A/G Ratio) 0.8 1 0.7-1.6 [facility] [id number] 20:10:00 Test Item Value Reference Range Interpretation Comments eGFR (test code = eGFR) 9 [facility] CenterCxokbetMYQFXJZJXJ8391-13-60 20:10:00 Test Item Value Reference Range Interpretation Comments WBC (test code = WBC) 4.3 3.7-10.4 [place] 526272-07-17 20:10:00 Test Item Value Reference Range Interpretation Comments RBC (test code = RBC) 2.17 4.70-6.10 [facility] KingwoodQshxpomKUYZJYPSVR9171-30-75 20:10:00 Test Item Value Reference Range Interpretation Comments Hgb (test code = Hgb) 7.7 14.0-18.0 [facility] CenterQwvdczfMZGXTUYOQL0864-43-63 20:10:00 Test Item Value Reference Range Interpretation Comments Hct (test code = Hct) 22.9 42.0-54.0 [place] 526272-07-17 20:10:00 Test Item Value Reference Range Interpretation Comments MCV (test code = MCV) 105.9 80.0-94.0 [facility] CenterExvumoaAVFLOMJOZP2613-14-17 20:10:00 Test Item Value Reference Range Interpretation Comments MCH (test code = MCH) 35.4 pg 27.0-31.0 [facility] CenterZagtvdzUZVIZVADCL1879-51-42 20:10:00 Test Item Value Reference Range Interpretation Comments MCHC (test code = MCHC) 33.4 32.0-36.0 [facility] CenterMyspozfCZAPYEQTEF1092-39-55 20:10:00 Test Item Value Reference Range Interpretation Comments RDW (test code = RDW) 23.6 11.5-14.5 [facility] CenterZnvylknHRDEBROIBQ0047-26-44 20:10:00 Test Item Value Reference Range Interpretation Comments Platelet (test code = Platelet) 146 133-450 [facility] CenterCqbpapjNQEYJCFKMF4547-69-20 20:10:00 Test Item Value Reference Range Interpretation Comments MPV (test code = MPV) 8.0 7.4-10.4 [place] 526272-07-17 20:10:00 Test Item Value Reference Range Interpretation Comments Plt Morph (test code = Normal (12/14/21 3:10 Plt Morph) PM) [facility] CenterKtjclfiZZEYNMARIF7096-71-66 20:10:00 Test Item Value Reference Range Interpretation Comments Segs (test code = Segs) 67.4 45.0-75.0 [place] [id number] 20:10:00 Test Item Value Reference Range Interpretation Comments Lymphocytes (test code = Lymphocytes) 12.8 20.0-40.0 [place] 526272-07-17 20:10:00 Test Item Value Reference Range Interpretation Comments Monocytes (test code = Monocytes) 15.1 2.0-12.0 [place] 526272-07-17 20:10:00 Test Item Value Reference Range Interpretation Comments Eosinophils (test code = 4.1 See_Comment [A utomated message] The Eosinophils) system which ge nerated this result tra nsmitted reference range : <=4.0. The reference r samantha was not used to int erpret this result as normal/abnormal . [facility] CenterGzfdepgGGLUERCYCZ8921-24-35 20:10:00 Test Item Value Reference Range Interpretation Comments Basophils (test code = 0.6 See_Comment [Aut omated message] The Basophils) system which ge nerated this result tra nsmitted reference range : <=1.0. The reference r samantha was not used to int erpret this result as normal/abnormal . [facility] CenterYbgvpmkVYVATTOOLO3499-13-34 20:10:00 Test Item Value Reference Range Interpretation Comments Neutrophils # (test code = Neutrophils 2.9 1.5-8.1 #) [facility] CenterVddynzeRSFKDARVSX1973-97-19 20:10:00 Test Item Value Reference Range Interpretation Comments Lymphocytes # (test code = Lymphocytes 0.5 1.0-5.5 #) [facility] CenterNvtnkicWFZLZIDLFE8488-65-24 20:10:00 Test Item Value Reference Range Interpretation Comments Monocytes # (test code 0.6 See_Comment [Aut omated message] The = Monocytes #) system which generated this result tra nsmitted reference range : <=0.8. The reference r samantha was not used to int erpret this result as normal/abnormal . [facility] CenterQuceufoTCOILXGIQR8803-26-37 20:10:00 Test Item Value Reference Range Interpretation Comments Eosinophils # (test code 0.2 See_Comment [A utomated message] The = Eosinophils #) system [facility] h generated this result tra nsmitted reference range : <=0.5. The reference r samantha was not used to int erpret this result as normal/abnormal . [facility] CenterVqvlztqNNMBOLKCNY4141-51-28 20:10:00 Test Item Value Reference Range Interpretation Comments Anisocyte (test code = 1+ *ABN*(12/14/21 Anisocyte) 3:10 PM) [facility] CenterSmohlayIMBHPWHHJG9868-77-86 20:10:00 Test Item Value Reference Range Interpretation Comments Macrocyte (test code = 1+ *ABN*(12/14/21 Macrocyte) 3:10 PM) [facility]ElwwjsbNFINWXYRYV3761-80-50 20:10:00 Test Item Value Reference Range Interpretation Comments Coronavirus (COVID-19) Detected MANUEL (test code = 4*ABN*(12/14/21 3:10 Coronavirus (COVID-19) PM) MANUEL) [facility] [id number] 20:10:00 Test Item Value Reference Range Interpretation Comments HS Troponin I Baseline (test code = HS 340 Troponin I Baseline) [facility] [id number] 20:10:00 Test Item Value Reference Range Interpretation Comments Glucose Lvl (test code = Glucose Lvl) 60 70-99 [facility] [id number] 20:10:00 Test Item Value Reference Range Interpretation Comments BUN (test code = BUN) 35 7-22 [facility] [id number] 20:10:00 Test Item Value Reference Range Interpretation Comments Creatinine Lvl (test code = Creatinine 6.10 0.50-1.40 Lvl) [facility] [id number] 20:10:00 Test Item Value Reference Range Interpretation Comments Sodium Lvl (test code = Sodium Lvl) 139 135-145 [facility]2022-07-17 20:10:00 Test Item Value Reference Range Interpretation Comments Potassium Lvl (test code = Potassium 3.1 3.5-5.1 Lvl) [facility] [id number] 20:10:00 Test Item Value Reference Range Interpretation Comments Chloride Lvl (test code = Chloride Lvl) 105 95-109 [facility]2022-07-17 20:10:00 Test Item Value Reference Range Interpretation Comments CO2 (test code = CO2) 28 24-32 [facility]2022-07-17 20:10:00 Test Item Value Reference Range Interpretation Comments Calcium Lvl (test code = Calcium Lvl) 8.1 8.5-10.5 [facility]2022-07-17 20:10:00 Test Item Value Reference Range Interpretation Comments Total Protein (test code = Total 5.8 6.4-8.4 Protein) [facility]2022-07-17 20:10:00 Test Item Value Reference Range Interpretation Comments Albumin Lvl (test code = Albumin Lvl) 2.6 3.5-5.0 [facility] [id number] 20:10:00 Test Item Value Reference Range Interpretation Comments ALT (test code = ALT) 74 See_Comment [Auto mated message] The system which ge nerated this result transmit swathi reference range : <=65. The reference range was not used to interpr et this result as deny l/abnormal. [facility] [id number] 20:10:00 Test Item Value Reference Range Interpretation Comments AST (test code = AST) 117 See_Comment [Auto mated message] The system which ge nerated this result transmit swathi reference range : <=37. The reference range was not used to interpr et this result as deny l/abnormal. [facility] [id number] 20:10:00 Test Item Value Reference Range Interpretation Comments Alk Phos (test code = Alk Phos) 241 39-136 [facility] [id number] 20:10:00 Test Item Value Reference Range Interpretation Comments Bili Total (test code = Bili Total) 0.8 0.2-1.3 [facility] CenterProspectWiseCARDIAC [id number] 20:10:00 Test Item Value Reference Range Interpretation Comments HS Troponin I Baseline (test code = HS 340 Troponin I Baseline) [facility] [id number] 20:10:00 Test Item Value Reference Range Interpretation Comments Glucose Lvl (test code = Glucose Lvl) 60 70-99 [facility] [id number] 20:10:00 Test Item Value Reference Range Interpretation Comments BUN (test code = BUN) 35 7-22 [facility] [id number] 20:10:00 Test Item Value Reference Range Interpretation Comments Creatinine Lvl (test code = Creatinine 6.10 0.50-1.40 Lvl) [facility] [id number] 20:10:00 Test Item Value Reference Range Interpretation Comments Sodium Lvl (test code = Sodium Lvl) 139 135-145 [facility] [id number] 20:10:00 Test Item Value Reference Range Interpretation Comments Potassium Lvl (test code = Potassium 3.1 3.5-5.1 Lvl) [facility] [id number] 20:10:00 Test Item Value Reference Range Interpretation Comments AGAP (test code = AGAP) 9.1 10.0-20.0 [facility] [id number] 20:10:00 Test Item Value Reference Range Interpretation Comments Chloride Lvl (test code = Chloride Lvl) 105 95-109 [place] 510012-07-17 20:10:00 Test Item Value Reference Range Interpretation Comments CO2 (test code = CO2) 28 24-32 [place] 510012-07-17 20:10:00 Test Item Value Reference Range Interpretation Comments Calcium Lvl (test code = Calcium Lvl) 8.1 8.5-10.5 [facility] [id number] 20:10:00 Test Item Value Reference Range Interpretation Comments Total Protein (test code = Total 5.8 6.4-8.4 Protein) [facility] CenterProspectWiseDANIEL [place] [id number] 20:10:00 Test Item Value Reference Range Interpretation Comments Albumin Lvl (test code = Albumin Lvl) 2.6 3.5-5.0 [facility] [id number] 20:10:00 Test Item Value Reference Range Interpretation Comments ALT (test code = ALT) 74 See_Comment [Auto mated message] The system which ge nerated this result transmit swathi reference range : <=65. The reference range was not used to interpr et this result as deny l/abnormal. [facility] [id number] 20:10:00 Test Item Value Reference Range Interpretation Comments AST (test code = AST) 117 See_Comment [Auto mated message] The system which ge nerated this result transmit swathi reference range : <=37. The reference range was not used to interpr et this result as deny l/abnormal. [facility] [id number] 20:10:00 Test Item Value Reference Range Interpretation Comments Alk Phos (test code = Alk Phos) 241 39-136 [facility] [id number] 20:10:00 Test Item Value Reference Range Interpretation Comments Bili Total (test code = Bili Total) 0.8 0.2-1.3 [facility] [id number] 20:10:00 Test Item Value Reference Range Interpretation Comments AGAP (test code = AGAP) 9.1 10.0-20.0 [facility] [id number] 20:10:00 Test Item Value Reference Range Interpretation Comments B/C Ratio (test code = B/C Ratio) 6 1 - [facility] [id number] 20:10:00 Test Item Value Reference Range Interpretation Comments B/C Ratio (test code = B/C Ratio) 6 1 - [facility] [id number] 20:10:00 Test Item Value Reference Range Interpretation Comments Globulin (test code = Globulin) 3.2 2.7-4.2 [facility] [id number] 20:10:00 Test Item Value Reference Range Interpretation Comments A/G Ratio (test code = A/G Ratio) 0.8 1 0.7-1.6 [facility]2022-07-17 20:10:00 Test Item Value Reference Range Interpretation Comments eGFR (test code = eGFR) 9 [facility] CenterRgimbzgDDCZNTDEHA4977-27-98 20:10:00 Test Item Value Reference Range Interpretation Comments WBC (test code = WBC) 4.3 3.7-10.4 [facility] CenterPwocsbmEJAEOMCUVS7867-64-77 20:10:00 Test Item Value Reference Range Interpretation Comments RBC (test code = RBC) 2.17 4.70-6.10 [facility] CenterLsnncnvIGBKNJDBXU8326-86-48 20:10:00 Test Item Value Reference Range Interpretation Comments Hgb (test code = Hgb) 7.7 14.0-18.0 [facility] CenterXwhyiyrRBMZYLBIWZ8352-76-95 20:10:00 Test Item Value Reference Range Interpretation Comments Hct (test code = Hct) 22.9 42.0-54.0 [facility] CenterMaaqzsxZZWERLVSQA3465-71-12 20:10:00 Test Item Value Reference Range Interpretation Comments MCV (test code = MCV) 105.9 80.0-94.0 [facility] CenterZynbeeiFOXKUWDSJK7088-93-34 20:10:00 Test Item Value Reference Range Interpretation Comments MCH (test code = MCH) 35.4 pg 27.0-31.0 [facility]2022-07-17 20:10:00 Test Item Value Reference Range Interpretation Comments Globulin (test code = Globulin) 3.2 2.7-4.2 [facility] CenterRqmbfotKEHPYLFANW5660-85-78 20:10:00 Test Item Value Reference Range Interpretation Comments MCHC (test code = MCHC) 33.4 32.0-36.0 [place] 526272-07-17 20:10:00 Test Item Value Reference Range Interpretation Comments RDW (test code = RDW) 23.6 11.5-14.5 [facility] CenterZgofcddLUNNCLUVJJ0566-10-10 20:10:00 Test Item Value Reference Range Interpretation Comments Platelet (test code = Platelet) 146 133-450 [facility] CenterAonxkfpTEHMARGJFA9631-41-70 20:10:00 Test Item Value Reference Range Interpretation Comments MPV (test code = MPV) 8.0 7.4-10.4 [facility] CenterHkbsfidXFAFDPQOYE5150-78-73 20:10:00 Test Item Value Reference Range Interpretation Comments Plt Morph (test code = Normal (12/14/21 3:10 Plt Morph) PM) [facility] CenterFdydionOGVHCOSZUU3206-32-24 20:10:00 Test Item Value Reference Range Interpretation Comments Segs (test code = Segs) 67.4 45.0-75.0 [facility] CenterXcohtehCZRVBEHUNT6908-41-73 20:10:00 Test Item Value Reference Range Interpretation Comments Lymphocytes (test code = Lymphocytes) 12.8 20.0-40.0 [facility] CenterAmkptedZGSBJQWEYD8547-47-43 20:10:00 Test Item Value Reference Range Interpretation Comments Monocytes (test code = Monocytes) 15.1 2.0-12.0 [facility] CenterXviatiwRWJGWNHXJF2577-61-84 20:10:00 Test Item Value Reference Range Interpretation Comments Eosinophils (test code = 4.1 See_Comment [A utomated message] The Eosinophils) system which ge nerated this result tra nsmitted reference range : <=4.0. The reference r samantha was not used to int erpret this result as normal/abnormal . [facility] CenterFtvulkmVADPUUNJKZ4579-98-93 20:10:00 Test Item Value Reference Range Interpretation Comments Basophils (test code = 0.6 See_Comment [Aut omated message] The Basophils) system which ge nerated this result tra nsmitted reference range : <=1.0. The reference r samantha was not used to int erpret this result as normal/abnormal . [facility]2022-07-17 20:10:00 Test Item Value Reference Range Interpretation Comments A/G Ratio (test code = A/G Ratio) 0.8 1 0.7-1.6 [facility] CenterJknchudAYQWWSEILE3520-98-57 20:10:00 Test Item Value Reference Range Interpretation Comments Neutrophils # (test code = Neutrophils 2.9 1.5-8.1 #) [facility] CenterYtvcwjvZTLZMTMYQQ4483-97-37 20:10:00 Test Item Value Reference Range Interpretation Comments Lymphocytes # (test code = Lymphocytes 0.5 1.0-5.5 #) [facility] CenterTdyuqzlLIZIUQAADX9365-15-48 20:10:00 Test Item Value Reference Range Interpretation Comments Monocytes # (test code 0.6 See_Comment [Aut omated message] The = Monocytes #) system which generated this result tra nsmitted reference range : <=0.8. The reference r samantha was not used to int erpret this result as normal/abnormal . [facility] CenterHzvcxvxCEXWCJAROF1409-40-46 20:10:00 Test Item Value Reference Range Interpretation Comments Eosinophils # (test code 0.2 See_Comment [A utomated message] The = Eosinophils #) system whic h generated this result tra nsmitted reference range : <=0.5. The reference r samantha was not used to int erpret this result as normal/abnormal . [facility] CenterFpbmxfqMEQCRQNRPF9805-74-93 20:10:00 Test Item Value Reference Range Interpretation Comments Anisocyte (test code = 1+ *ABN*(12/14/21 Anisocyte) 3:10 PM) [facility] CenterBisqpqdMGNSCSYPOW0312-68-78 20:10:00 Test Item Value Reference Range Interpretation Comments Macrocyte (test code = 1+ *ABN*(12/14/21 Macrocyte) 3:10 PM) [facility]woodGgnnzrhXZRYUGWQAI8265-53-99 20:10:00 Test Item Value Reference Range Interpretation Comments Coronavirus (COVID-19) Detected MANUEL (test code = 4*ABN*(12/14/21 3:10 Coronavirus (COVID-19) PM) MANUEL) [facility]woodCHEM [id number] 20:10:00 Test Item Value Reference Range Interpretation Comments eGFR (test code = eGFR) 9 [facility] CenterDlsezjvEZEKJOWHTO4958-60-19 20:10:00 Test Item Value Reference Range Interpretation Comments WBC (test code = WBC) 4.3 3.7-10.4 [facility] CenterXgmfgdaLTCRVHQAXB5942-04-54 20:10:00 Test Item Value Reference Range Interpretation Comments RBC (test code = RBC) 2.17 4.70-6.10 [facility] CenterXdwvdkkSMURASCKLR9600-55-44 20:10:00 Test Item Value Reference Range Interpretation Comments Hgb (test code = Hgb) 7.7 14.0-18.0 [facility] CenterKnobkzfBCNXMEGVOE4412-62-62 20:10:00 Test Item Value Reference Range Interpretation Comments Hct (test code = Hct) 22.9 42.0-54.0 [facility] CenterCnzlgyvDOBHOWGMIP1509-35-49 20:10:00 Test Item Value Reference Range Interpretation Comments MCV (test code = MCV) 105.9 80.0-94.0 [facility] CenterQjfpcfuRKEDONSISH6134-98-67 20:10:00 Test Item Value Reference Range Interpretation Comments MCH (test code = MCH) 35.4 pg 27.0-31.0 [facility] CenterKefpwwuBOEOOJQDAF5000-87-38 20:10:00 Test Item Value Reference Range Interpretation Comments MCHC (test code = MCHC) 33.4 32.0-36.0 [facility] CenterRpfotvuLXSIAGFUKT9215-99-89 20:10:00 Test Item Value Reference Range Interpretation Comments RDW (test code = RDW) 23.6 11.5-14.5 [facility] CenterQcsyqquPZPSQPVHJL1532-97-17 20:10:00 Test Item Value Reference Range Interpretation Comments Platelet (test code = Platelet) 146 133-450 [facility] CenterGlrsnajXQQUXEFSHT2191-15-65 20:10:00 Test Item Value Reference Range Interpretation Comments MPV (test code = MPV) 8.0 7.4-10.4 [facility] CenterWzbbslrGZOMTRRHGE5290-90-30 20:10:00 Test Item Value Reference Range Interpretation Comments Plt Morph (test code = Normal (12/14/21 3:10 Plt Morph) PM) [facility] CenterDmbxmrhGGYLFYHHPH3832-85-88 20:10:00 Test Item Value Reference Range Interpretation Comments Segs (test code = Segs) 67.4 45.0-75.0 [facility] CenterFliypqpAKISXVNLWH9814-95-37 20:10:00 Test Item Value Reference Range Interpretation Comments Lymphocytes (test code = Lymphocytes) 12.8 20.0-40.0 [facility] CenterReodjnfYMYGVATUYS5882-21-93 20:10:00 Test Item Value Reference Range Interpretation Comments Monocytes (test code = Monocytes) 15.1 2.0-12.0 [place] 526272-07-17 20:10:00 Test Item Value Reference Range Interpretation Comments Eosinophils (test code = 4.1 See_Comment [A utomated message] The Eosinophils) system which ge nerated this result tra nsmitted reference range : <=4.0. The reference r samantha was not used to int erpret this result as normal/abnormal . [facility] CenterMheayyqRLTCOVZHEB8898-95-59 20:10:00 Test Item Value Reference Range Interpretation Comments Basophils (test code = 0.6 See_Comment [Aut omated message] The Basophils) system which ge nerated this result tra nsmitted reference range : <=1.0. The reference r samantha was not used to int erpret this result as normal/abnormal . [facility] CenterJvkzivwQHLHIUSRTT9858-89-33 20:10:00 Test Item Value Reference Range Interpretation Comments Neutrophils # (test code = Neutrophils 2.9 1.5-8.1 #) [facility] CenterHrtwpifQFYWBJMLAI6003-89-49 20:10:00 Test Item Value Reference Range Interpretation Comments Lymphocytes # (test code = Lymphocytes 0.5 1.0-5.5 #) [facility] CenterSaodqvnCUEUVHWREL8790-74-23 20:10:00 Test Item Value Reference Range Interpretation Comments Monocytes # (test code 0.6 See_Comment [Aut omated message] The = Monocytes #) system which generated this result tra nsmitted reference range : <=0.8. The reference r samantha was not used to int erpret this result as normal/abnormal . [facility] CenterWbupastTVAALKFNBY0959-46-19 20:10:00 Test Item Value Reference Range Interpretation Comments Eosinophils # (test code 0.2 See_Comment [A utomated message] The = Eosinophils #) system whic h generated this result tra nsmitted reference range : <=0.5. The reference r samantha was not used to int erpret this result as normal/abnormal . [facility] CenterNatjoqrPOZRWUZLIX4046-01-94 20:10:00 Test Item Value Reference Range Interpretation Comments Anisocyte (test code = 1+ *ABN*(12/14/21 Anisocyte) 3:10 PM) [facility] CenterSsxslkmTQTJVQDSEH1802-16-29 20:10:00 Test Item Value Reference Range Interpretation Comments Macrocyte (test code = 1+ *ABN*(12/14/21 Macrocyte) 3:10 PM) [facility]woodIzbknazNNVOFNQKZT2015-80-81 20:10:00 Test Item Value Reference Range Interpretation Comments Coronavirus (COVID-19) Detected MANUEL (test code = 4*ABN*(12/14/21 3:10 Coronavirus (COVID-19) PM) MANUEL) [facility]woodCARD[facility] ESVBVPM5201-26-67 20:10:00 Test Item Value Reference Range Interpretation Comments HS Troponin I Baseline (test code = HS 340 Troponin I Baseline) [facility] [id number] 20:10:00 Test Item Value Reference Range Interpretation Comments Glucose Lvl (test code = Glucose Lvl) 60 70-99 [facility]2022-07-17 20:10:00 Test Item Value Reference Range Interpretation Comments BUN (test code = BUN) 35 7-22 [facility]2022-07-17 20:10:00 Test Item Value Reference Range Interpretation Comments Creatinine Lvl (test code = Creatinine 6.10 0.50-1.40 Lvl) [facility] [id number] 20:10:00 Test Item Value Reference Range Interpretation Comments Sodium Lvl (test code = Sodium Lvl) 139 135-145 [facility]2022-07-17 20:10:00 Test Item Value Reference Range Interpretation Comments Potassium Lvl (test code = Potassium 3.1 3.5-5.1 Lvl) [facility]2022-07-17 20:10:00 Test Item Value Reference Range Interpretation Comments Chloride Lvl (test code = Chloride Lvl) 105 95-109 [facility]2022-07-17 20:10:00 Test Item Value Reference Range Interpretation Comments CO2 (test code = CO2) 28 24-32 [facility]2022-07-17 20:10:00 Test Item Value Reference Range Interpretation Comments Calcium Lvl (test code = Calcium Lvl) 8.1 8.5-10.5 [facility]2022-07-17 20:10:00 Test Item Value Reference Range Interpretation Comments Total Protein (test code = Total 5.8 6.4-8.4 Protein) [facility]2022-07-17 20:10:00 Test Item Value Reference Range Interpretation Comments Albumin Lvl (test code = Albumin Lvl) 2.6 3.5-5.0 [facility] [employer] [id number] 20:10:00 Test Item Value Reference Range Interpretation Comments ALT (test code = ALT) 74 See_Comment [Auto mated message] The system which ge nerated this result transmit swathi reference range : <=65. The reference range was not used to interpr et this result as deny l/abnormal. [facility] [employer] [id number] 20:10:00 Test Item Value Reference Range Interpretation Comments AST (test code = AST) 117 See_Comment [Auto mated message] The system which ge nerated this result transmit swathi reference range : <=37. The reference range was not used to interpr et this result as deny l/abnormal. [facility] [employer] [id number] 20:10:00 Test Item Value Reference Range Interpretation Comments Alk Phos (test code = Alk Phos) 241 39-136 [facility] [employer] [id number] 20:10:00 Test Item Value Reference Range Interpretation Comments Bili Total (test code = Bili Total) 0.8 0.2-1.3 [facility] [employer] [id number] 20:10:00 Test Item Value Reference Range Interpretation Comments AGAP (test code = AGAP) 9.1 10.0-20.0 [facility] [employer] [id number] 20:10:00 Test Item Value Reference Range Interpretation Comments B/C Ratio (test code = B/C Ratio) 6 1 6-25 [facility] [id number] 20:10:00 Test Item Value Reference Range Interpretation Comments Globulin (test code = Globulin) 3.2 2.7-4.2 [facility] [employer] [id number] 20:10:00 Test Item Value Reference Range Interpretation Comments A/G Ratio (test code = A/G Ratio) 0.8 1 0.7-1.6 [facility] [employer] [id number] 20:10:00 Test Item Value Reference Range Interpretation Comments eGFR (test code = eGFR) 9 [facility] CenterMloeqefZOXCXXSLYR7267-10-72 20:10:00 Test Item Value Reference Range Interpretation Comments WBC (test code = WBC) 4.3 3.7-10.4 [facility] CenterEnwhmcyIPDQXMKFHB0200-48-94 20:10:00 Test Item Value Reference Range Interpretation Comments RBC (test code = RBC) 2.17 4.70-6.10 [facility] CenterIypdgrvPFACSBAABI8921-31-31 20:10:00 Test Item Value Reference Range Interpretation Comments Hgb (test code = Hgb) 7.7 14.0-18.0 [place] 526272-07-17 20:10:00 Test Item Value Reference Range Interpretation Comments Hct (test code = Hct) 22.9 42.0-54.0 [facility] CenterWknvjakEVFPWLBDPI7097-64-22 20:10:00 Test Item Value Reference Range Interpretation Comments MCV (test code = MCV) 105.9 80.0-94.0 [facility] CenterJpphahuXPWYYPAOTM4525-96-69 20:10:00 Test Item Value Reference Range Interpretation Comments MCH (test code = MCH) 35.4 pg 27.0-31.0 [facility] CenterNtlitvmFRWTKOVBWP2808-15-08 20:10:00 Test Item Value Reference Range Interpretation Comments MCHC (test code = MCHC) 33.4 32.0-36.0 [facility] CenterEcnwfwaOQBLMIVEHG4495-53-32 20:10:00 Test Item Value Reference Range Interpretation Comments RDW (test code = RDW) 23.6 11.5-14.5 [facility] CenterNwrxvtfKSIRXUMCSE6049-74-05 20:10:00 Test Item Value Reference Range Interpretation Comments Platelet (test code = Platelet) 146 133-450 [facility] CenterReunqphIRJNXEEURS6993-83-08 20:10:00 Test Item Value Reference Range Interpretation Comments MPV (test code = MPV) 8.0 7.4-10.4 [place] 526272-07-17 20:10:00 Test Item Value Reference Range Interpretation Comments Plt Morph (test code = Normal (12/14/21 3:10 Plt Morph) PM) [facility] CenterOcuyszeOSBGTSVZGT7171-48-33 20:10:00 Test Item Value Reference Range Interpretation Comments Segs (test code = Segs) 67.4 45.0-75.0 [place] 526272-07-17 20:10:00 Test Item Value Reference Range Interpretation Comments Lymphocytes (test code = Lymphocytes) 12.8 20.0-40.0 [place] 526272-07-17 20:10:00 Test Item Value Reference Range Interpretation Comments Monocytes (test code = Monocytes) 15.1 2.0-12.0 [facility] CenterEbvfqduASGPRWJNQN7674-92-36 20:10:00 Test Item Value Reference Range Interpretation Comments Eosinophils (test code = 4.1 See_Comment [A utomated message] The Eosinophils) system which ge nerated this result tra nsmitted reference range : <=4.0. The reference r samantha was not used to int erpret this result as normal/abnormal . [facility] CenterSfgzvtpJZVITLHDEZ2915-02-09 20:10:00 Test Item Value Reference Range Interpretation Comments Basophils (test code = 0.6 See_Comment [Aut omated message] The Basophils) system which ge nerated this result tra nsmitted reference range : <=1.0. The reference r samantha was not used to int erpret this result as normal/abnormal . [facility] CenterWxippxvNQXWXMDHTU1837-36-83 20:10:00 Test Item Value Reference Range Interpretation Comments Neutrophils # (test code = Neutrophils 2.9 1.5-8.1 #) [facility] CenterYhmakjdIGDUNRHSCT1804-19-01 20:10:00 Test Item Value Reference Range Interpretation Comments Lymphocytes # (test code = Lymphocytes 0.5 1.0-5.5 #) [facility] CenterDpfzcghXDMFVHQMRB6014-59-91 20:10:00 Test Item Value Reference Range Interpretation Comments Monocytes # (test code 0.6 See_Comment [Aut omated message] The = Monocytes #) system which generated this result tra nsmitted reference range : <=0.8. The reference r samantha was not used to int erpret this result as normal/abnormal . [facility] CenterDjkdhrqGNGIPNSUWY1742-27-36 20:10:00 Test Item Value Reference Range Interpretation Comments Eosinophils # (test code 0.2 See_Comment [A utomated message] The = Eosinophils #) system whic h generated this result tra nsmitted reference range : <=0.5. The reference r samantha was not used to int erpret this result as normal/abnormal . [facility] CenterJzsaopjXJUFEWLVTD5086-09-59 20:10:00 Test Item Value Reference Range Interpretation Comments Anisocyte (test code = 1+ *ABN*(12/14/21 Anisocyte) 3:10 PM) [facility] CenterCcezfsgWPJKLGBPXT7603-31-57 20:10:00 Test Item Value Reference Range Interpretation Comments Macrocyte (test code = 1+ *ABN*(12/14/21 Macrocyte) 3:10 PM) [facility]woodBduzcisXPZIQCXWPB2544-53-72 20:10:00 Test Item Value Reference Range Interpretation Comments Coronavirus (COVID-19) Detected MANUEL (test code = 4*ABN*(12/14/21 3:10 Coronavirus (COVID-19) PM) MANUEL) [facility]woodCARDIAC [id number] 20:10:00 Test Item Value Reference Range Interpretation Comments HS Troponin I Baseline (test code = HS 340 Troponin I Baseline) [facility] [id number] 20:10:00 Test Item Value Reference Range Interpretation Comments Glucose Lvl (test code = Glucose Lvl) 60 70-99 [facility]2022-07-17 20:10:00 Test Item Value Reference Range Interpretation Comments BUN (test code = BUN) 35 7-22 [facility]2022-07-17 20:10:00 Test Item Value Reference Range Interpretation Comments Creatinine Lvl (test code = Creatinine 6.10 0.50-1.40 Lvl) [facility]2022-07-17 20:10:00 Test Item Value Reference Range Interpretation Comments Sodium Lvl (test code = Sodium Lvl) 139 135-145 [facility]2022-07-17 20:10:00 Test Item Value Reference Range Interpretation Comments Potassium Lvl (test code = Potassium 3.1 3.5-5.1 Lvl) [facility]2022-07-17 20:10:00 Test Item Value Reference Range Interpretation Comments Chloride Lvl (test code = Chloride Lvl) 105 95-109 [facility]2022-07-17 20:10:00 Test Item Value Reference Range Interpretation Comments CO2 (test code = CO2) 28 24-32 [facility]2022-07-17 20:10:00 Test Item Value Reference Range Interpretation Comments Calcium Lvl (test code = Calcium Lvl) 8.1 8.5-10.5 [facility]2022-07-17 20:10:00 Test Item Value Reference Range Interpretation Comments Total Protein (test code = Total 5.8 6.4-8.4 Protein) [facility]2022-07-17 20:10:00 Test Item Value Reference Range Interpretation Comments Albumin Lvl (test code = Albumin Lvl) 2.6 3.5-5.0 [facility] [id number] 20:10:00 Test Item Value Reference Range Interpretation Comments ALT (test code = ALT) 74 See_Comment [Auto mated message] The system which ge nerated this result transmit swathi reference range : <=65. The reference range was not used to interpr et this result as deny l/abnormal. [facility] [employer] [id number] 20:10:00 Test Item Value Reference Range Interpretation Comments AST (test code = AST) 117 See_Comment [Auto mated message] The system which ge nerated this result transmit swathi reference range : <=37. The reference range was not used to interpr et this result as deny l/abnormal. [facility] [employer] [id number] 20:10:00 Test Item Value Reference Range Interpretation Comments Alk Phos (test code = Alk Phos) 241 39-136 [facility] [employer] [id number] 20:10:00 Test Item Value Reference Range Interpretation Comments Bili Total (test code = Bili Total) 0.8 0.2-1.3 [facility] [id number] 20:10:00 Test Item Value Reference Range Interpretation Comments AGAP (test code = AGAP) 9.1 10.0-20.0 [facility] [employer] [id number] 20:10:00 Test Item Value Reference Range Interpretation Comments B/C Ratio (test code = B/C Ratio) 6 1 6-25 [facility] [id number] 20:10:00 Test Item Value Reference Range Interpretation Comments Globulin (test code = Globulin) 3.2 2.7-4.2 [facility] [employer] [id number] 20:10:00 Test Item Value Reference Range Interpretation Comments A/G Ratio (test code = A/G Ratio) 0.8 1 0.7-1.6 [facility] [employer] [id number] 20:10:00 Test Item Value Reference Range Interpretation Comments eGFR (test code = eGFR) 9 [facility] CenterPyljsntEDBTAFENFK3626-38-47 20:10:00 Test Item Value Reference Range Interpretation Comments WBC (test code = WBC) 4.3 3.7-10.4 [facility] CenterRzjqiwxSAGOLPPOEM5570-72-37 20:10:00 Test Item Value Reference Range Interpretation Comments RBC (test code = RBC) 2.17 4.70-6.10 [facility] CenterQzpivkfBHBHUVYJAP8725-58-50 20:10:00 Test Item Value Reference Range Interpretation Comments Hgb (test code = Hgb) 7.7 14.0-18.0 [facility] CenterSgskiswXYTGYWBYJI8450-92-91 20:10:00 Test Item Value Reference Range Interpretation Comments Hct (test code = Hct) 22.9 42.0-54.0 [facility] CenterUbisyqcCUEKOJUHFJ8307-86-50 20:10:00 Test Item Value Reference Range Interpretation Comments MCV (test code = MCV) 105.9 80.0-94.0 [facility] CenterBzrwvecLWJQLFOZTJ3246-17-68 20:10:00 Test Item Value Reference Range Interpretation Comments MCH (test code = MCH) 35.4 pg 27.0-31.0 [facility] CenterJfwxgzdPGACWFEMII5811-17-40 20:10:00 Test Item Value Reference Range Interpretation Comments MCHC (test code = MCHC) 33.4 32.0-36.0 [facility] CenterYmffqqhRKTYSGOCTC5458-75-52 20:10:00 Test Item Value Reference Range Interpretation Comments RDW (test code = RDW) 23.6 11.5-14.5 [facility] CenterGclkjbhKXEBHVFQYJ8485-30-71 20:10:00 Test Item Value Reference Range Interpretation Comments Platelet (test code = Platelet) 146 133-450 [facility] CenterBxcgehrCICTFZLRYI6073-03-41 20:10:00 Test Item Value Reference Range Interpretation Comments MPV (test code = MPV) 8.0 7.4-10.4 [facility] CenterLzpyajeJFZJQKXKCL0609-74-81 20:10:00 Test Item Value Reference Range Interpretation Comments Plt Morph (test code = Normal (12/14/21 3:10 Plt Morph) PM) [facility] CenterDedjoweIGIJSXCVOP8290-87-15 20:10:00 Test Item Value Reference Range Interpretation Comments Segs (test code = Segs) 67.4 45.0-75.0 [facility] CenterPxdnbbuZYFYIVTZVT1644-96-25 20:10:00 Test Item Value Reference Range Interpretation Comments Lymphocytes (test code = Lymphocytes) 12.8 20.0-40.0 [facility] CenterTylwiggHKFFKSJMZX4020-84-99 20:10:00 Test Item Value Reference Range Interpretation Comments Monocytes (test code = Monocytes) 15.1 2.0-12.0 [facility] CenterUaitmckPLWVJPFIQK3880-76-21 20:10:00 Test Item Value Reference Range Interpretation Comments Eosinophils (test code = 4.1 See_Comment [A utomated message] The Eosinophils) system which ge nerated this result tra nsmitted reference range : <=4.0. The reference r samantha was not used to int erpret this result as normal/abnormal . [facility] CenterBxvbotcYBKIMYVYZQ3601-91-60 20:10:00 Test Item Value Reference Range Interpretation Comments Basophils (test code = 0.6 See_Comment [Aut omated message] The Basophils) system which ge nerated this result tra nsmitted reference range : <=1.0. The reference r samantha was not used to int erpret this result as normal/abnormal . [facility] CenterGwkuqfjPKULZMZHZC0716-52-03 20:10:00 Test Item Value Reference Range Interpretation Comments Neutrophils # (test code = Neutrophils 2.9 1.5-8.1 #) [place] 526272-07-17 20:10:00 Test Item Value Reference Range Interpretation Comments Lymphocytes # (test code = Lymphocytes 0.5 1.0-5.5 #) [facility] CenterFzwkieuELIGVWBWTF3338-72-53 20:10:00 Test Item Value Reference Range Interpretation Comments Monocytes # (test code 0.6 See_Comment [Aut omated message] The = Monocytes #) system which generated this result tra nsmitted reference range : <=0.8. The reference r samantha was not used to int erpret this result as normal/abnormal . [place] 526272-07-17 20:10:00 Test Item Value Reference Range Interpretation Comments Eosinophils # (test code 0.2 See_Comment [A utomated message] The = Eosinophils #) system whic h generated this result tra nsmitted reference range : <=0.5. The reference r samantha was not used to int erpret this result as normal/abnormal . [facility] CenterLjaixugFWYHGSTHPB7464-97-32 20:10:00 Test Item Value Reference Range Interpretation Comments Anisocyte (test code = 1+ *ABN*(12/14/21 Anisocyte) 3:10 PM) [facility] CenterPsuuuddPUVPTXXZNL9963-17-82 20:10:00 Test Item Value Reference Range Interpretation Comments Macrocyte (test code = 1+ *ABN*(12/14/21 Macrocyte) 3:10 PM) [facility]woodKiuepnvOJFUGLVXQT3915-26-55 20:10:00 Test Item Value Reference Range Interpretation Comments Coronavirus (COVID-19) Detected MANUEL (test code = 4*ABN*(12/14/21 3:10 Coronavirus (COVID-19) PM) MANUEL) [facility] AND [id number] 01:43:00 Test Item Value Reference Range Interpretation Comments Occult Bld Stl (test Negative (12/03/21 8:43 code = Occult Bld Stl) PM) [facility] AND [id number] 01:43:00 Test Item Value Reference Range Interpretation Comments Occult Bld Stl (test Negative (12/03/21 8:43 code = Occult Bld Stl) PM) [facility] AND [id number] 01:43:00 Test Item Value Reference Range Interpretation Comments Occult Bld Stl (test Negative (12/03/21 8:43 code = Occult Bld Stl) PM) [facility] AND [id number] 01:43:00 Test Item Value Reference Range Interpretation Comments Occult Bld Stl (test Negative (12/03/21 8:43 code = Occult Bld Stl) PM) [facility] [id number] 01:43:00 Test Item Value Reference Range Interpretation Comments Occult Bld Stl (test Negative (12/03/21 8:43 code = Occult Bld Stl) PM) [facility] AND [id number] 01:43:00 Test Item Value Reference Range Interpretation Comments Occult Bld Stl (test Negative (12/03/21 8:43 code = Occult Bld Stl) PM) [facility] AND [id number] 01:43:00 Test Item Value Reference Range Interpretation Comments Occult Bld Stl (test Negative (12/03/21 8:43 code = Occult Bld Stl) PM) [facility] [id number] 01:29:00 Test Item Value Reference Range Interpretation Comments RBC product (test code Product available = RBC product) 2(12/03/21 8:29 PM) [facility] [id number] 01:29:00 Test Item Value Reference Range Interpretation Comments RBC product (test code Product available = RBC product) 2(12/03/21 8:29 PM) [facility] [id number] 01:29:00 Test Item Value Reference Range Interpretation Comments RBC product (test code Product available = RBC product) 2(12/03/21 8:29 PM) [facility] [id number] 01:29:00 Test Item Value Reference Range Interpretation Comments RBC product (test code Product available = RBC product) 2(12/03/21 8:29 PM) [facility] [id number] 01:29:00 Test Item Value Reference Range Interpretation Comments RBC product (test code Product available = RBC product) 2(12/03/21 8:29 PM) [facility] [id number] 01:29:00 Test Item Value Reference Range Interpretation Comments RBC product (test code Product available = RBC product) 2(12/03/21 8:29 PM) [facility] [id number] 01:29:00 Test Item Value Reference Range Interpretation Comments RBC product (test code Product available = RBC product) 2(12/03/21 8:29 PM) [facility] [id number] 00:36:00 Test Item Value Reference Range Interpretation Comments ABO/Rh (test code = ABO/Rh) AB POS [facility] [id number] 00:36:00 Test Item Value Reference Range Interpretation Comments Antibody Scrn (test Negative (12/03/21 7:36 code = Antibody Scrn) PM) [facility] [id number] 00:36:00 Test Item Value Reference Range Interpretation Comments Glucose Lvl (test code = Glucose Lvl) 143 70-99 [facility] [id number] 00:36:00 Test Item Value Reference Range Interpretation Comments BUN (test code = BUN) 39 - [facility] [id number] 00:36:00 Test Item Value Reference Range Interpretation Comments Creatinine Lvl (test code = Creatinine 5.46 0.50-1.40 Lvl) [facility] [id number] 00:36:00 Test Item Value Reference Range Interpretation Comments Sodium Lvl (test code = Sodium Lvl) 136 135-145 [place] 510012-07-07 00:36:00 Test Item Value Reference Range Interpretation Comments Potassium Lvl (test code = Potassium 4.2 3.5-5.1 Lvl) [place] 510012-07-07 00:36:00 Test Item Value Reference Range Interpretation Comments Chloride Lvl (test code = Chloride Lvl) 100 95-109 [place] 510012-07-07 00:36:00 Test Item Value Reference Range Interpretation Comments CO2 (test code = CO2) 27 24-32 [place] 510012-07-07 00:36:00 Test Item Value Reference Range Interpretation Comments Calcium Lvl (test code = Calcium Lvl) 8.9 8.5-10.5 [place] 510012-07-07 00:36:00 Test Item Value Reference Range Interpretation Comments AGAP (test code = AGAP) 13.2 10.0-20.0 [place] 510012-07-07 00:36:00 Test Item Value Reference Range Interpretation Comments eGFR (test code = eGFR) 10 [facility] CenterFgajvttKLMYCHXATG0295-06-35 00:36:00 Test Item Value Reference Range Interpretation Comments WBC (test code = WBC) 2.5 3.7-10.4 [place] 526272-07-07 00:36:00 Test Item Value Reference Range Interpretation Comments RBC (test code = RBC) 1.97 4.70-6.10 [place] 526272-07-07 00:36:00 Test Item Value Reference Range Interpretation Comments Hgb (test code = Hgb) 7.1 14.0-18.0 [place] 526272-07-07 00:36:00 Test Item Value Reference Range Interpretation Comments Hct (test code = Hct) 20.6 42.0-54.0 [place] 526272-07-07 00:36:00 Test Item Value Reference Range Interpretation Comments MCV (test code = MCV) 105.0 80.0-94.0 [place] 526272-07-07 00:36:00 Test Item Value Reference Range Interpretation Comments MCH (test code = MCH) 36.2 pg 27.0-31.0 [place] 526272-07-07 00:36:00 Test Item Value Reference Range Interpretation Comments MCHC (test code = MCHC) 34.5 32.0-36.0 [facility] CenterEolpaguTZYAWSARVL9106-17-96 00:36:00 Test Item Value Reference Range Interpretation Comments RDW (test code = RDW) 21.1 11.5-14.5 [place] 526272-07-07 00:36:00 Test Item Value Reference Range Interpretation Comments Platelet (test code = Platelet) 136 133-450 [facility] CenterXtrzgnbSKBSMHLCOX9041-29-75 00:36:00 Test Item Value Reference Range Interpretation Comments MPV (test code = MPV) 8.7 7.4-10.4 [facility] CenterRguxhcaLBHALAMTEA2337-87-91 00:36:00 Test Item Value Reference Range Interpretation Comments Segs (test code = Segs) 59.5 45.0-75.0 [place] 526272-07-07 00:36:00 Test Item Value Reference Range Interpretation Comments Lymphocytes (test code = Lymphocytes) 25.2 20.0-40.0 [facility] CenterZnaxruzMNIAJXEUZD3627-12-26 00:36:00 Test Item Value Reference Range Interpretation Comments Monocytes (test code = Monocytes) 12.5 2.0-12.0 [facility] CenterRwimkzhAYUDNAPOEX9765-75-44 00:36:00 Test Item Value Reference Range Interpretation Comments Eosinophils (test code = 2.1 See_Comment [A utomated message] The Eosinophils) system which ge nerated this result tra nsmitted reference range : <=4.0. The reference r samantha was not used to int erpret this result as normal/abnormal . [facility] CenterXrzdcomZHUOFEOQYF6394-44-26 00:36:00 Test Item Value Reference Range Interpretation Comments Basophils (test code = 0.7 See_Comment [Aut omated message] The Basophils) system which ge nerated this result tra nsmitted reference range : <=1.0. The reference r samantha was not used to int erpret this result as normal/abnormal . [place] 526272-07-07 00:36:00 Test Item Value Reference Range Interpretation Comments Neutrophils # (test code = Neutrophils 1.5 1.5-8.1 #) [facility] CenterPutrdptYKZKTPFHXE7505-14-41 00:36:00 Test Item Value Reference Range Interpretation Comments Lymphocytes # (test code = Lymphocytes 0.6 1.0-5.5 #) [facility] CenterGqdczytCHITMDLXOW5810-85-40 00:36:00 Test Item Value Reference Range Interpretation Comments Monocytes # (test code 0.3 See_Comment [Aut omated message] The = Monocytes #) system which generated this result tra nsmitted reference range : <=0.8. The reference r samantha was not used to int erpret this result as normal/abnormal . [facility] CenterAzzcgxhBNLOXYJVOC0649-36-60 00:36:00 Test Item Value Reference Range Interpretation Comments Eosinophils # (test code 0.1 See_Comment [A utomated message] The = Eosinophils #) system whic h generated this result tra nsmitted reference range : <=0.5. The reference r samantha was not used to int erpret this result as normal/abnormal . [facility] [id number] 00:36:00 Test Item Value Reference Range Interpretation Comments ABO/Rh (test code = ABO/Rh) AB POS [facility] [id number] 00:36:00 Test Item Value Reference Range Interpretation Comments Antibody Scrn (test Negative (12/03/21 7:36 code = Antibody Scrn) PM) [facility] [id number] 00:36:00 Test Item Value Reference Range Interpretation Comments Glucose Lvl (test code = Glucose Lvl) 143 70-99 [facility] CenterAn[facility] [id number] 00:36:00 Test Item Value Reference Range Interpretation Comments BUN (test code = BUN) 39 7-22 [facility] CenterAn[facility] [id number] 00:36:00 Test Item Value Reference Range Interpretation Comments Creatinine Lvl (test code = Creatinine 5.46 0.50-1.40 Lvl) [facility] CenterAn[facility] [id number] 00:36:00 Test Item Value Reference Range Interpretation Comments Sodium Lvl (test code = Sodium Lvl) 136 135-145 [facility] [id number] 00:36:00 Test Item Value Reference Range Interpretation Comments Potassium Lvl (test code = Potassium 4.2 3.5-5.1 Lvl) [facility]An[facility] [id number] 00:36:00 Test Item Value Reference Range Interpretation Comments Chloride Lvl (test code = Chloride Lvl) 100 95-109 [facility]2022-07-07 00:36:00 Test Item Value Reference Range Interpretation Comments CO2 (test code = CO2) 27 24-32 [facility]2022-07-07 00:36:00 Test Item Value Reference Range Interpretation Comments Calcium Lvl (test code = Calcium Lvl) 8.9 8.5-10.5 [facility]2022-07-07 00:36:00 Test Item Value Reference Range Interpretation Comments AGAP (test code = AGAP) 13.2 10.0-20.0 [facility]2022-07-07 00:36:00 Test Item Value Reference Range Interpretation Comments eGFR (test code = eGFR) 10 [facility] CenterCzxbyrgDTBHDDKUYU0145-12-66 00:36:00 Test Item Value Reference Range Interpretation Comments WBC (test code = WBC) 2.5 3.7-10.4 [place] 526272-07-07 00:36:00 Test Item Value Reference Range Interpretation Comments RBC (test code = RBC) 1.97 4.70-6.10 [facility] CenterTcrwxteZDGLXDMBXU4545-69-56 00:36:00 Test Item Value Reference Range Interpretation Comments Hgb (test code = Hgb) 7.1 14.0-18.0 [place] 526272-07-07 00:36:00 Test Item Value Reference Range Interpretation Comments Hct (test code = Hct) 20.6 42.0-54.0 [facility] CenterYkhkkrwFRLWUWVQAS8870-05-62 00:36:00 Test Item Value Reference Range Interpretation Comments MCV (test code = MCV) 105.0 80.0-94.0 [place] 526272-07-07 00:36:00 Test Item Value Reference Range Interpretation Comments MCH (test code = MCH) 36.2 pg 27.0-31.0 [place] 526272-07-07 00:36:00 Test Item Value Reference Range Interpretation Comments MCHC (test code = MCHC) 34.5 32.0-36.0 [place] 526272-07-07 00:36:00 Test Item Value Reference Range Interpretation Comments RDW (test code = RDW) 21.1 11.5-14.5 [place] 526272-07-07 00:36:00 Test Item Value Reference Range Interpretation Comments Platelet (test code = Platelet) 136 133-450 [place] 526272-07-07 00:36:00 Test Item Value Reference Range Interpretation Comments MPV (test code = MPV) 8.7 7.4-10.4 [place] 526272-07-07 00:36:00 Test Item Value Reference Range Interpretation Comments Segs (test code = Segs) 59.5 45.0-75.0 [place] 526272-07-07 00:36:00 Test Item Value Reference Range Interpretation Comments Lymphocytes (test code = Lymphocytes) 25.2 20.0-40.0 [place] 526272-07-07 00:36:00 Test Item Value Reference Range Interpretation Comments Monocytes (test code = Monocytes) 12.5 2.0-12.0 [place] 526272-07-07 00:36:00 Test Item Value Reference Range Interpretation Comments Eosinophils (test code = 2.1 See_Comment [A utomated message] The Eosinophils) system which ge nerated this result tra nsmitted reference range : <=4.0. The reference r samantha was not used to int erpret this result as normal/abnormal . [place] 526272-07-07 00:36:00 Test Item Value Reference Range Interpretation Comments Basophils (test code = 0.7 See_Comment [Aut omated message] The Basophils) system which ge nerated this result tra nsmitted reference range : <=1.0. The reference r samantha was not used to int erpret this result as normal/abnormal . [facility] CenterTuyzpqwSZWPQOBBQB7886-85-42 00:36:00 Test Item Value Reference Range Interpretation Comments Neutrophils # (test code = Neutrophils 1.5 1.5-8.1 #) [place] 526272-07-07 00:36:00 Test Item Value Reference Range Interpretation Comments Lymphocytes # (test code = Lymphocytes 0.6 1.0-5.5 #) [place] 526272-07-07 00:36:00 Test Item Value Reference Range Interpretation Comments Monocytes # (test code 0.3 See_Comment [Aut omated message] The = Monocytes #) system which generated this result tra nsmitted reference range : <=0.8. The reference r samantha was not used to int erpret this result as normal/abnormal . [facility] Test Item Value Reference Range Interpretation Comments Eosinophils # (test code 0.1 See_Comment [A utomated message] The = Eosinophils #) system whic h generated this result tra nsmitted reference range : <=0.5. The reference r samantha was not used to int erpret this result as normal/abnormal . [facility] [employer] [id number] 00:36:00 Test Item Value Reference Range Interpretation Comments ABO/Rh (test code = ABO/Rh) AB POS [facility] [id number] 00:36:00 Test Item Value Reference Range Interpretation Comments Antibody Scrn (test Negative (12/03/21 7:36 code = Antibody Scrn) PM) [facility] [employer] [id number] 00:36:00 Test Item Value Reference Range Interpretation Comments Glucose Lvl (test code = Glucose Lvl) 143 70-99 [facility] [employer] [id number] 00:36:00 Test Item Value Reference Range Interpretation Comments BUN (test code = BUN) 39 7-22 [facility] [employer] [id number] 00:36:00 Test Item Value Reference Range Interpretation Comments Creatinine Lvl (test code = Creatinine 5.46 0.50-1.40 Lvl) [facility] [employer] [id number] 00:36:00 Test Item Value Reference Range Interpretation Comments Sodium Lvl (test code = Sodium Lvl) 136 135-145 [facility] [employer] [id number] 00:36:00 Test Item Value Reference Range Interpretation Comments Potassium Lvl (test code = Potassium 4.2 3.5-5.1 Lvl) [facility] [employer] [id number] 00:36:00 Test Item Value Reference Range Interpretation Comments Chloride Lvl (test code = Chloride Lvl) 100 95-109 [facility] [employer] [id number] 00:36:00 Test Item Value Reference Range Interpretation Comments CO2 (test code = CO2) 27 24-32 [facility] [employer] [id number] 00:36:00 Test Item Value Reference Range Interpretation Comments Calcium Lvl (test code = Calcium Lvl) 8.9 8.5-10.5 [facility]2022-07-07 00:36:00 Test Item Value Reference Range Interpretation Comments AGAP (test code = AGAP) 13.2 10.0-20.0 [facility]2022-07-07 00:36:00 Test Item Value Reference Range Interpretation Comments eGFR (test code = eGFR) 10 [facility] CenterNzvnsxiKZGHZREOLH5855-45-75 00:36:00 Test Item Value Reference Range Interpretation Comments WBC (test code = WBC) 2.5 3.7-10.4 [facility] CenterKwchbxpBPDZJHQGJR2979-35-03 00:36:00 Test Item Value Reference Range Interpretation Comments RBC (test code = RBC) 1.97 4.70-6.10 [facility] CenterGnazfszBZOGPISZAQ9500-21-30 00:36:00 Test Item Value Reference Range Interpretation Comments Hgb (test code = Hgb) 7.1 14.0-18.0 [facility] CenterRwqpmtwVKIXQYLIFS5406-41-65 00:36:00 Test Item Value Reference Range Interpretation Comments Hct (test code = Hct) 20.6 42.0-54.0 [facility] CenterIspadufKAYWZXHHFG1094-64-05 00:36:00 Test Item Value Reference Range Interpretation Comments MCV (test code = MCV) 105.0 80.0-94.0 [facility] CenterVwozyifFWCZQLBKHO8882-78-27 00:36:00 Test Item Value Reference Range Interpretation Comments MCH (test code = MCH) 36.2 pg 27.0-31.0 [facility] CenterOlrvizeHTCMTUAVWP7722-19-60 00:36:00 Test Item Value Reference Range Interpretation Comments MCHC (test code = MCHC) 34.5 32.0-36.0 [facility] CenterEcfmljpFNZMYMPEYH7909-73-73 00:36:00 Test Item Value Reference Range Interpretation Comments RDW (test code = RDW) 21.1 11.5-14.5 [place] 526272-07-07 00:36:00 Test Item Value Reference Range Interpretation Comments Platelet (test code = Platelet) 136 133-450 [facility] CenterCdogdziXLGARKYDYC4014-13-50 00:36:00 Test Item Value Reference Range Interpretation Comments MPV (test code = MPV) 8.7 7.4-10.4 [facility] CenterKqxjpqxUGIWGNYOKQ7910-02-90 00:36:00 Test Item Value Reference Range Interpretation Comments Segs (test code = Segs) 59.5 45.0-75.0 [place] 526272-07-07 00:36:00 Test Item Value Reference Range Interpretation Comments Lymphocytes (test code = Lymphocytes) 25.2 20.0-40.0 [place] 526272-07-07 00:36:00 Test Item Value Reference Range Interpretation Comments Monocytes (test code = Monocytes) 12.5 2.0-12.0 [place] 526272-07-07 00:36:00 Test Item Value Reference Range Interpretation Comments Eosinophils (test code = 2.1 See_Comment [A utomated message] The Eosinophils) system which ge nerated this result tra nsmitted reference range : <=4.0. The reference r samantha was not used to int erpret this result as normal/abnormal . [place] 526272-07-07 00:36:00 Test Item Value Reference Range Interpretation Comments Basophils (test code = 0.7 See_Comment [Aut omated message] The Basophils) system which ge nerated this result tra nsmitted reference range : <=1.0. The reference r samantha was not used to int erpret this result as normal/abnormal . [facility] CenterAvgffjwZAHHVAFWFP8518-07-00 00:36:00 Test Item Value Reference Range Interpretation Comments Neutrophils # (test code = Neutrophils 1.5 1.5-8.1 #) [place] 526272-07-07 00:36:00 Test Item Value Reference Range Interpretation Comments Lymphocytes # (test code = Lymphocytes 0.6 1.0-5.5 #) [place] 526272-07-07 00:36:00 Test Item Value Reference Range Interpretation Comments Monocytes # (test code 0.3 See_Comment [Aut omated message] The = Monocytes #) system which generated this result tra nsmitted reference range : <=0.8. The reference r samantha was not used to int erpret this result as normal/abnormal . [place] 526272-07-07 00:36:00 Test Item Value Reference Range Interpretation Comments Eosinophils # (test code 0.1 See_Comment [A utomated message] The = Eosinophils #) system wh h generated this result tra nsmitted reference range : <=0.5. The reference r samantha was not used to int erpret this result as normal/abnormal . [facility] [id number] 00:36:00 Test Item Value Reference Range Interpretation Comments ABO/Rh (test code = ABO/Rh) AB POS [facility] [id number] 00:36:00 Test Item Value Reference Range Interpretation Comments Antibody Scrn (test Negative (12/03/21 7:36 code = Antibody Scrn) PM) [facility]2022-07-07 00:36:00 Test Item Value Reference Range Interpretation Comments Glucose Lvl (test code = Glucose Lvl) 143 70-99 [facility] [id number] 00:36:00 Test Item Value Reference Range Interpretation Comments BUN (test code = BUN) 39 7-22 [facility] [id number] 00:36:00 Test Item Value Reference Range Interpretation Comments Creatinine Lvl (test code = Creatinine 5.46 0.50-1.40 Lvl) [facility] [id number] 00:36:00 Test Item Value Reference Range Interpretation Comments Sodium Lvl (test code = Sodium Lvl) 136 135-145 [facility] [id number] 00:36:00 Test Item Value Reference Range Interpretation Comments Potassium Lvl (test code = Potassium 4.2 3.5-5.1 Lvl) [facility] [id number] 00:36:00 Test Item Value Reference Range Interpretation Comments Chloride Lvl (test code = Chloride Lvl) 100 95-109 [facility] [id number] 00:36:00 Test Item Value Reference Range Interpretation Comments CO2 (test code = CO2) 27 24-32 [facility] [id number] 00:36:00 Test Item Value Reference Range Interpretation Comments Calcium Lvl (test code = Calcium Lvl) 8.9 8.5-10.5 [facility] [id number] 00:36:00 Test Item Value Reference Range Interpretation Comments AGAP (test code = AGAP) 13.2 10.0-20.0 [facility] [id number] 00:36:00 Test Item Value Reference Range Interpretation Comments eGFR (test code = eGFR) 10 [facility]KxmohnlWZRJURJQXB0545-79-91 00:36:00 Test Item Value Reference Range Interpretation Comments WBC (test code = WBC) 2.5 3.7-10.4 [facility] CenterBfhilrdSTVVAHXNBT3287-36-30 00:36:00 Test Item Value Reference Range Interpretation Comments RBC (test code = RBC) 1.97 4.70-6.10 [facility] CenterZowllcbLCMVOLGXML4762-72-92 00:36:00 Test Item Value Reference Range Interpretation Comments Hgb (test code = Hgb) 7.1 14.0-18.0 [facility] CenterKkxfvwdKFQJMDVSTZ7261-63-20 00:36:00 Test Item Value Reference Range Interpretation Comments Hct (test code = Hct) 20.6 42.0-54.0 [facility] CenterWwhdvzlKRVTYZMYNT2005-20-61 00:36:00 Test Item Value Reference Range Interpretation Comments MCV (test code = MCV) 105.0 80.0-94.0 [facility] CenterSzyzkarYYANHRUZFQ0245-20-81 00:36:00 Test Item Value Reference Range Interpretation Comments MCH (test code = MCH) 36.2 pg 27.0-31.0 [facility] CenterCjqpamzNBZAAFHUGX4692-97-49 00:36:00 Test Item Value Reference Range Interpretation Comments MCHC (test code = MCHC) 34.5 32.0-36.0 [facility] CenterXjvrakhTMQJICYJYA1684-70-00 00:36:00 Test Item Value Reference Range Interpretation Comments RDW (test code = RDW) 21.1 11.5-14.5 [facility] CenterFbjljrhFDTZHDGROV7365-85-99 00:36:00 Test Item Value Reference Range Interpretation Comments Platelet (test code = Platelet) 136 133-450 [facility] CenterUxxmkawHQZRPAENLY9224-04-87 00:36:00 Test Item Value Reference Range Interpretation Comments MPV (test code = MPV) 8.7 7.4-10.4 [facility] CenterWiuynhaOOVVKMQOXS4139-12-21 00:36:00 Test Item Value Reference Range Interpretation Comments Segs (test code = Segs) 59.5 45.0-75.0 [facility] CenterTzaxvhgQFIEOETYFC3694-74-90 00:36:00 Test Item Value Reference Range Interpretation Comments Lymphocytes (test code = Lymphocytes) 25.2 20.0-40.0 [facility] CenterAyiawgyBOSQXYVXTM3559-58-76 00:36:00 Test Item Value Reference Range Interpretation Comments Monocytes (test code = Monocytes) 12.5 2.0-12.0 [facility] CenterErxwsmsUXAUFUTCCN5669-60-38 00:36:00 Test Item Value Reference Range Interpretation Comments Eosinophils (test code = 2.1 See_Comment [A utomated message] The Eosinophils) system which ge nerated this result tra nsmitted reference range : <=4.0. The reference r samantha was not used to int erpret this result as normal/abnormal . [facility] CenterQeweibnRDWDBTTBFR6473-13-20 00:36:00 Test Item Value Reference Range Interpretation Comments Basophils (test code = 0.7 See_Comment [Aut omated message] The Basophils) system which ge nerated this result tra nsmitted reference range : <=1.0. The reference r samantha was not used to int erpret this result as normal/abnormal . [facility] CenterVncoyuqEVZUTIWNIW8112-88-49 00:36:00 Test Item Value Reference Range Interpretation Comments Neutrophils # (test code = Neutrophils 1.5 1.5-8.1 #) [facility] CenterRakhdcbUFHJLRAQIN0975-35-23 00:36:00 Test Item Value Reference Range Interpretation Comments Lymphocytes # (test code = Lymphocytes 0.6 1.0-5.5 #) [facility] CenterZwteqkdYBPSJFICYP7782-12-52 00:36:00 Test Item Value Reference Range Interpretation Comments Monocytes # (test code 0.3 See_Comment [Aut omated message] The = Monocytes #) system which generated this result tra nsmitted reference range : <=0.8. The reference r samantha was not used to int erpret this result as normal/abnormal . [facility] CenterQpcizqoCHEBXCIRCA4028-45-51 00:36:00 Test Item Value Reference Range Interpretation Comments Eosinophils # (test code 0.1 See_Comment [A utomated message] The = Eosinophils #) system whic h generated this result tra nsmitted reference range : <=0.5. The reference r samantha was not used to int erpret this result as normal/abnormal . [facility] CenterReactX [id number] 00:36:00 Test Item Value Reference Range Interpretation Comments ABO/Rh (test code = ABO/Rh) AB POS [facility] CenterRe[facility] NUCQTKQ2891-26-24 00:36:00 Test Item Value Reference Range Interpretation Comments Antibody Scrn (test Negative (12/03/21 7:36 code = Antibody Scrn) PM) [facility]2022-07-07 00:36:00 Test Item Value Reference Range Interpretation Comments Glucose Lvl (test code = Glucose Lvl) 143 70-99 [place] 510012-07-07 00:36:00 Test Item Value Reference Range Interpretation Comments BUN (test code = BUN) 39 7-22 [place] 510012-07-07 00:36:00 Test Item Value Reference Range Interpretation Comments Creatinine Lvl (test code = Creatinine 5.46 0.50-1.40 Lvl) [place] 510012-07-07 00:36:00 Test Item Value Reference Range Interpretation Comments Sodium Lvl (test code = Sodium Lvl) 136 135-145 [place] 510012-07-07 00:36:00 Test Item Value Reference Range Interpretation Comments Potassium Lvl (test code = Potassium 4.2 3.5-5.1 Lvl) [place] 510012-07-07 00:36:00 Test Item Value Reference Range Interpretation Comments Chloride Lvl (test code = Chloride Lvl) 100 95-109 [place] 510012-07-07 00:36:00 Test Item Value Reference Range Interpretation Comments CO2 (test code = CO2) 27 24-32 [place] 510012-07-07 00:36:00 Test Item Value Reference Range Interpretation Comments Calcium Lvl (test code = Calcium Lvl) 8.9 8.5-10.5 [place] 510012-07-07 00:36:00 Test Item Value Reference Range Interpretation Comments AGAP (test code = AGAP) 13.2 10.0-20.0 [place] 510012-07-07 00:36:00 Test Item Value Reference Range Interpretation Comments eGFR (test code = eGFR) 10 [place] 526272-07-07 00:36:00 Test Item Value Reference Range Interpretation Comments WBC (test code = WBC) 2.5 3.7-10.4 [place] 526272-07-07 00:36:00 Test Item Value Reference Range Interpretation Comments RBC (test code = RBC) 1.97 4.70-6.10 [place] 526272-07-07 00:36:00 Test Item Value Reference Range Interpretation Comments Hgb (test code = Hgb) 7.1 14.0-18.0 [facility] CenterFbtzlexFUXWUGQJXE8976-32-04 00:36:00 Test Item Value Reference Range Interpretation Comments Hct (test code = Hct) 20.6 42.0-54.0 [facility] CenterItyyeouIRISZEQSMQ1154-03-65 00:36:00 Test Item Value Reference Range Interpretation Comments MCV (test code = MCV) 105.0 80.0-94.0 [facility] CenterLcqncvsLWROZEODRV3713-93-92 00:36:00 Test Item Value Reference Range Interpretation Comments MCH (test code = MCH) 36.2 pg 27.0-31.0 [facility] CenterAcxnctiWALEOFDVOG3538-89-99 00:36:00 Test Item Value Reference Range Interpretation Comments MCHC (test code = MCHC) 34.5 32.0-36.0 [facility] CenterXhksqyaTHRWFPUYSV8622-89-84 00:36:00 Test Item Value Reference Range Interpretation Comments RDW (test code = RDW) 21.1 11.5-14.5 [place] 526272-07-07 00:36:00 Test Item Value Reference Range Interpretation Comments Platelet (test code = Platelet) 136 133-450 [facility] CenterHaickzxLUWNDEIQVY4246-34-12 00:36:00 Test Item Value Reference Range Interpretation Comments MPV (test code = MPV) 8.7 7.4-10.4 [place] 526272-07-07 00:36:00 Test Item Value Reference Range Interpretation Comments Segs (test code = Segs) 59.5 45.0-75.0 [place] 526272-07-07 00:36:00 Test Item Value Reference Range Interpretation Comments Lymphocytes (test code = Lymphocytes) 25.2 20.0-40.0 [place] 526272-07-07 00:36:00 Test Item Value Reference Range Interpretation Comments Monocytes (test code = Monocytes) 12.5 2.0-12.0 [place] 526272-07-07 00:36:00 Test Item Value Reference Range Interpretation Comments Eosinophils (test code = 2.1 See_Comment [A utomated message] The Eosinophils) system which ge nerated this result tra nsmitted reference range : <=4.0. The reference r samantha was not used to int erpret this result as normal/abnormal . [facility]woodQlhgddsSLBFISFKHJ9054-66-82 00:36:00 Test Item Value Reference Range Interpretation Comments Basophils (test code = 0.7 See_Comment [Aut omated message] The Basophils) system which ge nerated this result tra nsmitted reference range : <=1.0. The reference r samantha was not used to int erpret this result as normal/abnormal . [facility] CenterQakyspsMWQOAFJCXJ3837-85-80 00:36:00 Test Item Value Reference Range Interpretation Comments Neutrophils # (test code = Neutrophils 1.5 1.5-8.1 #) [facility] CenterReajjmsLQEOPNHEQU8242-66-98 00:36:00 Test Item Value Reference Range Interpretation Comments Lymphocytes # (test code = Lymphocytes 0.6 1.0-5.5 #) [facility] CenterYupsxwdHMQPALAOMR0437-10-07 00:36:00 Test Item Value Reference Range Interpretation Comments Monocytes # (test code 0.3 See_Comment [Aut omated message] The = Monocytes #) system which generated this result tra nsmitted reference range : <=0.8. The reference r samantha was not used to int erpret this result as normal/abnormal . [facility] CenterLsapnqbNJIEUQGEWT4203-59-12 00:36:00 Test Item Value Reference Range Interpretation Comments Eosinophils # (test code 0.1 See_Comment [A utomated message] The = Eosinophils #) system whic h generated this result tra nsmitted reference range : <=0.5. The reference r samantha was not used to int erpret this result as normal/abnormal . [facility] IGZHQSU0462-39-80 00:36:00 Test Item Value Reference Range Interpretation Comments ABO/Rh (test code = ABO/Rh) AB POS [facility] CenterH[facility] [id number] 00:36:00 Test Item Value Reference Range Interpretation Comments Antibody Scrn (test Negative (12/03/21 7:36 code = Antibody Scrn) PM) [facility] [id number] 00:36:00 Test Item Value Reference Range Interpretation Comments Glucose Lvl (test code = Glucose Lvl) 143 70-99 [facility] MYIPK5728-09-86 00:36:00 Test Item Value Reference Range Interpretation Comments BUN (test code = BUN) 39 7-22 [facility] [employer] [id number] 00:36:00 Test Item Value Reference Range Interpretation Comments Creatinine Lvl (test code = Creatinine 5.46 0.50-1.40 Lvl) [place] 510012-07-07 00:36:00 Test Item Value Reference Range Interpretation Comments Sodium Lvl (test code = Sodium Lvl) 136 135-145 [place] 510012-07-07 00:36:00 Test Item Value Reference Range Interpretation Comments Potassium Lvl (test code = Potassium 4.2 3.5-5.1 Lvl) [facility]2022-07-07 00:36:00 Test Item Value Reference Range Interpretation Comments Chloride Lvl (test code = Chloride Lvl) 100 95-109 [place] 510012-07-07 00:36:00 Test Item Value Reference Range Interpretation Comments CO2 (test code = CO2) 27 24-32 [place] 510012-07-07 00:36:00 Test Item Value Reference Range Interpretation Comments Calcium Lvl (test code = Calcium Lvl) 8.9 8.5-10.5 [facility]2022-07-07 00:36:00 Test Item Value Reference Range Interpretation Comments AGAP (test code = AGAP) 13.2 10.0-20.0 [facility]2022-07-07 00:36:00 Test Item Value Reference Range Interpretation Comments eGFR (test code = eGFR) 10 [facility] CenterEnxaenzIMHCWJLNUF6000-82-53 00:36:00 Test Item Value Reference Range Interpretation Comments WBC (test code = WBC) 2.5 3.7-10.4 [place] 526272-07-07 00:36:00 Test Item Value Reference Range Interpretation Comments RBC (test code = RBC) 1.97 4.70-6.10 [place] 526272-07-07 00:36:00 Test Item Value Reference Range Interpretation Comments Hgb (test code = Hgb) 7.1 14.0-18.0 [place] 526272-07-07 00:36:00 Test Item Value Reference Range Interpretation Comments Hct (test code = Hct) 20.6 42.0-54.0 [place] 526272-07-07 00:36:00 Test Item Value Reference Range Interpretation Comments MCV (test code = MCV) 105.0 80.0-94.0 [facility] CenterUxsdymcOCKIHOXVDG6401-85-68 00:36:00 Test Item Value Reference Range Interpretation Comments MCH (test code = MCH) 36.2 pg 27.0-31.0 [facility] CenterNtbllkxTHLBSBWDNT8496-72-42 00:36:00 Test Item Value Reference Range Interpretation Comments MCHC (test code = MCHC) 34.5 32.0-36.0 [facility] CenterGqqxhgcCJUQDXEGWI0650-00-29 00:36:00 Test Item Value Reference Range Interpretation Comments RDW (test code = RDW) 21.1 11.5-14.5 [facility] CenterXgrturlSEGRZTIVDY9463-55-94 00:36:00 Test Item Value Reference Range Interpretation Comments Platelet (test code = Platelet) 136 133-450 [facility] CenterGxhbftdYTZEFUYDOU4133-94-53 00:36:00 Test Item Value Reference Range Interpretation Comments MPV (test code = MPV) 8.7 7.4-10.4 [facility] CenterEhhdsiuEZRDSWRLQO5380-50-21 00:36:00 Test Item Value Reference Range Interpretation Comments Segs (test code = Segs) 59.5 45.0-75.0 [facility] CenterWdttjpzSQSUNBZGSP0947-33-67 00:36:00 Test Item Value Reference Range Interpretation Comments Lymphocytes (test code = Lymphocytes) 25.2 20.0-40.0 [facility] CenterBkqojkdZHJPOWXZZQ6448-68-48 00:36:00 Test Item Value Reference Range Interpretation Comments Monocytes (test code = Monocytes) 12.5 2.0-12.0 [place] 526272-07-07 00:36:00 Test Item Value Reference Range Interpretation Comments Eosinophils (test code = 2.1 See_Comment [A utomated message] The Eosinophils) system which ge nerated this result tra nsmitted reference range : <=4.0. The reference r samantha was not used to int erpret this result as normal/abnormal . [facility] CenterRlzupvjNMLJRYOMTF8627-01-39 00:36:00 Test Item Value Reference Range Interpretation Comments Basophils (test code = 0.7 See_Comment [Aut omated message] The Basophils) system which ge nerated this result tra nsmitted reference range : <=1.0. The reference r samantha was not used to int erpret this result as normal/abnormal . [place] 526272-07-07 00:36:00 Test Item Value Reference Range Interpretation Comments Neutrophils # (test code = Neutrophils 1.5 1.5-8.1 #) [facility] CenterVqifwukWDQMQEULPL5763-36-08 00:36:00 Test Item Value Reference Range Interpretation Comments Lymphocytes # (test code = Lymphocytes 0.6 1.0-5.5 #) [facility] CenterYxwklapQMVRVASDSO1306-27-82 00:36:00 Test Item Value Reference Range Interpretation Comments Monocytes # (test code 0.3 See_Comment [Aut omated message] The = Monocytes #) system which generated this result tra nsmitted reference range : <=0.8. The reference r samantha was not used to int erpret this result as normal/abnormal . [facility]XmcfpcsGVPAAOMSCG0393-82-47 00:36:00 Test Item Value Reference Range Interpretation Comments Eosinophils # (test code 0.1 See_Comment [A utomated message] The = Eosinophils #) system whic h generated this result tra nsmitted reference range : <=0.5. The reference r samantha was not used to int erpret this result as normal/abnormal . [facility] CenterReactX [id number] 00:36:00 Test Item Value Reference Range Interpretation Comments ABO/Rh (test code = ABO/Rh) AB POS [facility] [employer] [id number] 00:36:00 Test Item Value Reference Range Interpretation Comments Antibody Scrn (test Negative (12/03/21 7:36 code = Antibody Scrn) PM) [facility] [id number] 00:36:00 Test Item Value Reference Range Interpretation Comments Glucose Lvl (test code = Glucose Lvl) 143 70-99 [facility] [id number] 00:36:00 Test Item Value Reference Range Interpretation Comments BUN (test code = BUN) 39 7-22 [facility] [id number] 00:36:00 Test Item Value Reference Range Interpretation Comments Creatinine Lvl (test code = Creatinine 5.46 0.50-1.40 Lvl) [facility] [id number] 00:36:00 Test Item Value Reference Range Interpretation Comments Sodium Lvl (test code = Sodium Lvl) 136 135-145 [facility] [id number] 00:36:00 Test Item Value Reference Range Interpretation Comments Potassium Lvl (test code = Potassium 4.2 3.5-5.1 Lvl) [facility]2022-07-07 00:36:00 Test Item Value Reference Range Interpretation Comments Chloride Lvl (test code = Chloride Lvl) 100 95-109 [place] 510012-07-07 00:36:00 Test Item Value Reference Range Interpretation Comments CO2 (test code = CO2) 27 24-32 [place] 510012-07-07 00:36:00 Test Item Value Reference Range Interpretation Comments Calcium Lvl (test code = Calcium Lvl) 8.9 8.5-10.5 [place] 510012-07-07 00:36:00 Test Item Value Reference Range Interpretation Comments AGAP (test code = AGAP) 13.2 10.0-20.0 [place] 510012-07-07 00:36:00 Test Item Value Reference Range Interpretation Comments eGFR (test code = eGFR) 10 [facility] CenterNjydyvrOPRJBBSIWC2672-02-56 00:36:00 Test Item Value Reference Range Interpretation Comments WBC (test code = WBC) 2.5 3.7-10.4 [place] 526272-07-07 00:36:00 Test Item Value Reference Range Interpretation Comments RBC (test code = RBC) 1.97 4.70-6.10 [facility] CenterJoeksyzEWEQSSVCQY5683-05-52 00:36:00 Test Item Value Reference Range Interpretation Comments Hgb (test code = Hgb) 7.1 14.0-18.0 [place] 526272-07-07 00:36:00 Test Item Value Reference Range Interpretation Comments Hct (test code = Hct) 20.6 42.0-54.0 [place] 526272-07-07 00:36:00 Test Item Value Reference Range Interpretation Comments MCV (test code = MCV) 105.0 80.0-94.0 [place] 526272-07-07 00:36:00 Test Item Value Reference Range Interpretation Comments MCH (test code = MCH) 36.2 pg 27.0-31.0 [place] 526272-07-07 00:36:00 Test Item Value Reference Range Interpretation Comments MCHC (test code = MCHC) 34.5 32.0-36.0 [place] 526272-07-07 00:36:00 Test Item Value Reference Range Interpretation Comments RDW (test code = RDW) 21.1 11.5-14.5 [place] 526272-07-07 00:36:00 Test Item Value Reference Range Interpretation Comments Platelet (test code = Platelet) 136 133-450 [facility] CenterUsauukgDCOXMHDWUS6468-58-46 00:36:00 Test Item Value Reference Range Interpretation Comments MPV (test code = MPV) 8.7 7.4-10.4 [facility] CenterTzbwkasITUDUGDFZC8793-96-10 00:36:00 Test Item Value Reference Range Interpretation Comments Segs (test code = Segs) 59.5 45.0-75.0 [place] 526272-07-07 00:36:00 Test Item Value Reference Range Interpretation Comments Lymphocytes (test code = Lymphocytes) 25.2 20.0-40.0 [place] 526272-07-07 00:36:00 Test Item Value Reference Range Interpretation Comments Monocytes (test code = Monocytes) 12.5 2.0-12.0 [facility] CenterFvypoacJONCLZAQWU0277-82-60 00:36:00 Test Item Value Reference Range Interpretation Comments Eosinophils (test code = 2.1 See_Comment [A utomated message] The Eosinophils) system which ge nerated this result tra nsmitted reference range : <=4.0. The reference r samantha was not used to int erpret this result as normal/abnormal . [place] 526272-07-07 00:36:00 Test Item Value Reference Range Interpretation Comments Basophils (test code = 0.7 See_Comment [Aut omated message] The Basophils) system which ge nerated this result tra nsmitted reference range : <=1.0. The reference r samantha was not used to int erpret this result as normal/abnormal . [facility] CenterXsrwkmgIMNQDGPCBY9337-63-70 00:36:00 Test Item Value Reference Range Interpretation Comments Neutrophils # (test code = Neutrophils 1.5 1.5-8.1 #) [place] 526272-07-07 00:36:00 Test Item Value Reference Range Interpretation Comments Lymphocytes # (test code = Lymphocytes 0.6 1.0-5.5 #) [facility] CenterNfsblsxIPAOSUBAJU7699-50-50 00:36:00 Test Item Value Reference Range Interpretation Comments Monocytes # (test code 0.3 See_Comment [Aut omated message] The = Monocytes #) system which generated this result tra nsmitted reference range : <=0.8. The reference r samantha was not used to int erpret this result as normal/abnormal . [facility] CenterXtdiwetXSTTAGHCLD6075-72-25 00:36:00 Test Item Value Reference Range Interpretation Comments Eosinophils # (test code 0.1 See_Comment [A utomated message] The = Eosinophils #) system whic h generated this result tra nsmitted reference range : <=0.5. The reference r samantha was not used to int erpret this result as normal/abnormal . [facility]2022-06-29 09:09:00 Test Item Value Reference Range Interpretation Comments Ferritin Lvl (test code = Ferritin Lvl) 1543 22-275 [facility]2022-06-29 09:09:00 Test Item Value Reference Range Interpretation Comments Glucose Lvl (test code = Glucose Lvl) 288 70-99 [facility]2022-06-29 09:09:00 Test Item Value Reference Range Interpretation Comments BUN (test code = BUN) 40 7-22 [place] 510012-06-29 09:09:00 Test Item Value Reference Range Interpretation Comments Creatinine Lvl (test code = Creatinine 6.23 0.50-1.40 Lvl) [place] 510012-06-29 09:09:00 Test Item Value Reference Range Interpretation Comments Sodium Lvl (test code = Sodium Lvl) 134 135-145 [place] 510012-06-29 09:09:00 Test Item Value Reference Range Interpretation Comments Potassium Lvl (test code = Potassium 4.5 3.5-5.1 Lvl) [place] 510012-06-29 09:09:00 Test Item Value Reference Range Interpretation Comments Chloride Lvl (test code = Chloride Lvl) 96 95-109 [facility]2022-06-29 09:09:00 Test Item Value Reference Range Interpretation Comments CO2 (test code = CO2) 29 24-32 [place] 510012-06-29 09:09:00 Test Item Value Reference Range Interpretation Comments AGAP (test code = AGAP) 13.5 10.0-20.0 [place] 510012-06-29 09:09:00 Test Item Value Reference Range Interpretation Comments Calcium Lvl (test code = Calcium Lvl) 9.1 8.5-10.5 [place] 510012-06-29 09:09:00 Test Item Value Reference Range Interpretation Comments B/C Ratio (test code = B/C Ratio) 6 1 6-25 [place] 510012-06-29 09:09:00 Test Item Value Reference Range Interpretation Comments Total Protein (test code = Total 6.3 6.4-8.4 Protein) [place] 510012-06-29 09:09:00 Test Item Value Reference Range Interpretation Comments Albumin Lvl (test code = Albumin Lvl) 2.5 3.5-5.0 [place] 510012-06-29 09:09:00 Test Item Value Reference Range Interpretation Comments Globulin (test code = Globulin) 3.8 2.7-4.2 [place] 510012-06-29 09:09:00 Test Item Value Reference Range Interpretation Comments A/G Ratio (test code = A/G Ratio) 0.7 1 0.7-1.6 [place] 510012-06-29 09:09:00 Test Item Value Reference Range Interpretation Comments ALT (test code = ALT) 38 See_Comment [Auto mated message] The system which ge nerated this result transmit swathi reference range : <=65. The reference range was not used to interpr et this result as deny l/abnormal. [facility] [id number] 09:09:00 Test Item Value Reference Range Interpretation Comments AST (test code = AST) 31 See_Comment [Auto mated message] The system which ge nerated this result transmit swathi reference range : <=37. The reference range was not used to interpr et this result as deny l/abnormal. [place] 510012-06-29 09:09:00 Test Item Value Reference Range Interpretation Comments Alk Phos (test code = Alk Phos) 357 39-136 [place] 510012-06-29 09:09:00 Test Item Value Reference Range Interpretation Comments Bili Total (test code = Bili Total) 1.0 0.2-1.3 [place] 510012-06-29 09:09:00 Test Item Value Reference Range Interpretation Comments eGFR (test code = eGFR) 8 [place] 510012-06-29 09:09:00 Test Item Value Reference Range Interpretation Comments Magnesium Lvl (test code = Magnesium 2.0 1.8-2.4 Lvl) [place] 510012-06-29 09:09:00 Test Item Value Reference Range Interpretation Comments LDH (test code = LDH) 251 98-192 [place] 510012-06-29 09:09:00 Test Item Value Reference Range Interpretation Comments Procalcitonin Lvl (test 0.51 See_Comment [Au tomated message] code = Procalcitonin Lvl) e system which generated this result transmitted ref erence range: <=0.10. The reference range was not used to interpr et this result as normal/abnormal . [place] 526272-06-29 09:09:00 Test Item Value Reference Range Interpretation Comments D-Dimer (test code = D-Dimer) 5.06 [place] 526272-06-29 09:09:00 Test Item Value Reference Range Interpretation Comments WBC (test code = WBC) 4.8 3.7-10.4 [place] 526272-06-29 09:09:00 Test Item Value Reference Range Interpretation Comments RBC (test code = RBC) 2.14 4.70-6.10 [place] 526272-06-29 09:09:00 Test Item Value Reference Range Interpretation Comments Hgb (test code = Hgb) 7.7 14.0-18.0 [place] 526272-06-29 09:09:00 Test Item Value Reference Range Interpretation Comments Hct (test code = Hct) 22.8 42.0-54.0 [place] [address]-06-29 09:09:00 Test Item Value Reference Range Interpretation Comments MCV (test code = MCV) 106.5 80.0-94.0 [place] 526272-06-29 09:09:00 Test Item Value Reference Range Interpretation Comments MCH (test code = MCH) 36.1 pg 27.0-31.0 [place] 526272-06-29 09:09:00 Test Item Value Reference Range Interpretation Comments MCHC (test code = MCHC) 33.9 32.0-36.0 [facility] CenterJrnyjejEICRNLHVHT7554-00-13 09:09:00 Test Item Value Reference Range Interpretation Comments RDW (test code = RDW) 21.8 11.5-14.5 [facility] CenterYdxpslvOETWDFDTAP3396-35-75 09:09:00 Test Item Value Reference Range Interpretation Comments Platelet (test code = Platelet) 176 133-450 [facility] CenterQupyvdzQMNZLQZAIV5618-55-32 09:09:00 Test Item Value Reference Range Interpretation Comments MPV (test code = MPV) 8.2 7.4-10.4 [facility] CenterEaumumvHELNZLLEKQ0421-26-45 09:09:00 Test Item Value Reference Range Interpretation Comments Segs (test code = Segs) 83.6 45.0-75.0 [facility] CenterBcyregmNXTWFFLKAX0860-35-34 09:09:00 Test Item Value Reference Range Interpretation Comments Lymphocytes (test code = Lymphocytes) 10.7 20.0-40.0 [facility] CenterRrfjweuSAZEVUGKUQ5493-04-49 09:09:00 Test Item Value Reference Range Interpretation Comments Monocytes (test code = Monocytes) 4.9 2.0-12.0 [facility] CenterKkrqexoSDJORSIXCV3575-57-71 09:09:00 Test Item Value Reference Range Interpretation Comments Eosinophils (test code = 0.4 See_Comment [A utomated message] The Eosinophils) system which ge nerated this result tra nsmitted reference range : <=4.0. The reference r samantha was not used to int erpret this result as normal/abnormal . [facility] CenterEwtkrjpEXABUVKVIM5877-67-51 09:09:00 Test Item Value Reference Range Interpretation Comments Basophils (test code = 0.4 See_Comment [Aut omated message] The Basophils) system which ge nerated this result tra nsmitted reference range : <=1.0. The reference r samantha was not used to int erpret this result as normal/abnormal . [facility] CenterGfrulbtVTFIKULABW1729-49-99 09:09:00 Test Item Value Reference Range Interpretation Comments Neutrophils # (test code = Neutrophils 4.0 1.5-8.1 #) [facility] CenterTtycgreLJBJTJNEEA3412-58-45 09:09:00 Test Item Value Reference Range Interpretation Comments Lymphocytes # (test code = Lymphocytes 0.5 1.0-5.5 #) [facility] CenterAxtsqqeTDWAFTHNPD5961-43-07 09:09:00 Test Item Value Reference Range Interpretation Comments Monocytes # (test code 0.2 See_Comment [Aut omated message] The = Monocytes #) system which generated this result tra nsmitted reference range : <=0.8. The reference r samantha was not used to int erpret this result as normal/abnormal . [place] 526272-06-29 09:09:00 Test Item Value Reference Range Interpretation Comments Macrocyte (test code = 1+ *ABN*(11/26/21 Macrocyte) 4:09 AM) [place] 820012-06-29 09:09:00 Test Item Value Reference Range Interpretation Comments Interleukin 6 (test code = Interleukin 14.71 6) [place] 820012-06-29 09:09:00 Test Item Value Reference Range Interpretation Comments C-REACTIVE PROTEIN (test code = 95.9 C-REACTIVE PROTEIN) [facility]2022-06-29 09:09:00 Test Item Value Reference Range Interpretation Comments Ferritin Lvl (test code = Ferritin Lvl) 1543 22-275 [place] 510012-06-29 09:09:00 Test Item Value Reference Range Interpretation Comments Glucose Lvl (test code = Glucose Lvl) 288 70-99 [place] 510012-06-29 09:09:00 Test Item Value Reference Range Interpretation Comments BUN (test code = BUN) 40 7-22 [place] 510012-06-29 09:09:00 Test Item Value Reference Range Interpretation Comments Creatinine Lvl (test code = Creatinine 6.23 0.50-1.40 Lvl) [facility]2022-06-29 09:09:00 Test Item Value Reference Range Interpretation Comments Sodium Lvl (test code = Sodium Lvl) 134 135-145 [place] 510012-06-29 09:09:00 Test Item Value Reference Range Interpretation Comments Potassium Lvl (test code = Potassium 4.5 3.5-5.1 Lvl) [place] 510012-06-29 09:09:00 Test Item Value Reference Range Interpretation Comments Chloride Lvl (test code = Chloride Lvl) 96 95-109 [place] 510012-06-29 09:09:00 Test Item Value Reference Range Interpretation Comments CO2 (test code = CO2) 29 24-32 [place] 510012-06-29 09:09:00 Test Item Value Reference Range Interpretation Comments AGAP (test code = AGAP) 13.5 10.0-20.0 [place] 510012-06-29 09:09:00 Test Item Value Reference Range Interpretation Comments Calcium Lvl (test code = Calcium Lvl) 9.1 8.5-10.5 [place] 510012-06-29 09:09:00 Test Item Value Reference Range Interpretation Comments B/C Ratio (test code = B/C Ratio) 6 1 6-25 [place] 510012-06-29 09:09:00 Test Item Value Reference Range Interpretation Comments Total Protein (test code = Total 6.3 6.4-8.4 Protein) [place] 510012-06-29 09:09:00 Test Item Value Reference Range Interpretation Comments Albumin Lvl (test code = Albumin Lvl) 2.5 3.5-5.0 [place] 510012-06-29 09:09:00 Test Item Value Reference Range Interpretation Comments Globulin (test code = Globulin) 3.8 2.7-4.2 [facility] [id number] 09:09:00 Test Item Value Reference Range Interpretation Comments A/G Ratio (test code = A/G Ratio) 0.7 1 0.7-1.6 [place] 510012-06-29 09:09:00 Test Item Value Reference Range Interpretation Comments ALT (test code = ALT) 38 See_Comment [Auto mated message] The system which ge nerated this result transmit swathi reference range : <=65. The reference range was not used to interpr et this result as deny l/abnormal. [facility] CenterAn[facility] VKCIZ3566-98-22 09:09:00 Test Item Value Reference Range Interpretation Comments AST (test code = AST) 31 See_Comment [Auto mated message] The system which ge nerated this result transmit swathi reference range : <=37. The reference range was not used to interpr et this result as deny l/abnormal. [facility]An[facility] JBZMN5801-30-02 09:09:00 Test Item Value Reference Range Interpretation Comments Alk Phos (test code = Alk Phos) 357 39-136 [facility]2022-06-29 09:09:00 Test Item Value Reference Range Interpretation Comments Bili Total (test code = Bili Total) 1.0 0.2-1.3 [place] 510012-06-29 09:09:00 Test Item Value Reference Range Interpretation Comments eGFR (test code = eGFR) 8 [facility]2022-06-29 09:09:00 Test Item Value Reference Range Interpretation Comments Magnesium Lvl (test code = Magnesium 2.0 1.8-2.4 Lvl) [place] 510012-06-29 09:09:00 Test Item Value Reference Range Interpretation Comments LDH (test code = LDH) 251 98-192 [facility]2022-06-29 09:09:00 Test Item Value Reference Range Interpretation Comments Procalcitonin Lvl (test 0.51 See_Comment [Au tomated message] code = Procalcitonin Lvl) e system which generated this result transmitted ref erence range: <=0.10. The reference range was not used to interpr et this result as normal/abnormal . [facility] CenterVihzqrgPRGMBQUILT7099-34-02 09:09:00 Test Item Value Reference Range Interpretation Comments D-Dimer (test code = D-Dimer) 5.06 [place] [address]-06-29 09:09:00 Test Item Value Reference Range Interpretation Comments WBC (test code = WBC) 4.8 3.7-10.4 [place] 526272-06-29 09:09:00 Test Item Value Reference Range Interpretation Comments RBC (test code = RBC) 2.14 4.70-6.10 [place] 526272-06-29 09:09:00 Test Item Value Reference Range Interpretation Comments Hgb (test code = Hgb) 7.7 14.0-18.0 [place] [address]-06-29 09:09:00 Test Item Value Reference Range Interpretation Comments Hct (test code = Hct) 22.8 42.0-54.0 [place] [address]-06-29 09:09:00 Test Item Value Reference Range Interpretation Comments MCV (test code = MCV) 106.5 80.0-94.0 [place] 526272-06-29 09:09:00 Test Item Value Reference Range Interpretation Comments MCH (test code = MCH) 36.1 pg 27.0-31.0 [facility] CenterIukhbjgIJYZXUTDTV4371-75-82 09:09:00 Test Item Value Reference Range Interpretation Comments MCHC (test code = MCHC) 33.9 32.0-36.0 [facility] CenterIsyegtrCWOLUVSDYV9568-55-93 09:09:00 Test Item Value Reference Range Interpretation Comments RDW (test code = RDW) 21.8 11.5-14.5 [facility] CenterPsezzmfBTVYNKHMSI8758-47-66 09:09:00 Test Item Value Reference Range Interpretation Comments Platelet (test code = Platelet) 176 133-450 [facility] CenterVauxwvfHJNFRGXXXH6670-35-59 09:09:00 Test Item Value Reference Range Interpretation Comments MPV (test code = MPV) 8.2 7.4-10.4 [place] 526272-06-29 09:09:00 Test Item Value Reference Range Interpretation Comments Segs (test code = Segs) 83.6 45.0-75.0 [facility] CenterLrgolotFJWCBHYQHG7574-34-15 09:09:00 Test Item Value Reference Range Interpretation Comments Lymphocytes (test code = Lymphocytes) 10.7 20.0-40.0 [facility] CenterJbymxqzKUARBJKEIK2626-45-84 09:09:00 Test Item Value Reference Range Interpretation Comments Monocytes (test code = Monocytes) 4.9 2.0-12.0 [facility] CenterAddcflmAFHOSJVGOW8227-23-42 09:09:00 Test Item Value Reference Range Interpretation Comments Eosinophils (test code = 0.4 See_Comment [A utomated message] The Eosinophils) system which ge nerated this result tra nsmitted reference range : <=4.0. The reference r samantha was not used to int erpret this result as normal/abnormal . [facility] CenterKdxjylhDXDLCGIPTM3402-02-03 09:09:00 Test Item Value Reference Range Interpretation Comments Basophils (test code = 0.4 See_Comment [Aut omated message] The Basophils) system which ge nerated this result tra nsmitted reference range : <=1.0. The reference r samantha was not used to int erpret this result as normal/abnormal . [facility] CenterSdkfpvuXHKOBFUXBR6972-25-10 09:09:00 Test Item Value Reference Range Interpretation Comments Neutrophils # (test code = Neutrophils 4.0 1.5-8.1 #) [facility] CenterJttomhaFKHRRRERVF4181-39-63 09:09:00 Test Item Value Reference Range Interpretation Comments Lymphocytes # (test code = Lymphocytes 0.5 1.0-5.5 #) [facility] CenterUxkfbshQMBAOILDQN3713-40-25 09:09:00 Test Item Value Reference Range Interpretation Comments Monocytes # (test code 0.2 See_Comment [Aut omated message] The = Monocytes #) system which generated this result tra nsmitted reference range : <=0.8. The reference r samantha was not used to int erpret this result as normal/abnormal . [facility] CenterZvsmpcoASBFCIPMSD7675-44-73 09:09:00 Test Item Value Reference Range Interpretation Comments Macrocyte (test code = 1+ *ABN*(11/26/21 Macrocyte) 4:09 AM) [place] 820012-06-29 09:09:00 Test Item Value Reference Range Interpretation Comments Interleukin 6 (test code = Interleukin 14.71 6) [place] 820012-06-29 09:09:00 Test Item Value Reference Range Interpretation Comments C-REACTIVE PROTEIN (test code = 95.9 C-REACTIVE PROTEIN) [facility]2022-06-29 09:09:00 Test Item Value Reference Range Interpretation Comments Ferritin Lvl (test code = Ferritin Lvl) 1543 22-275 [facility]2022-06-29 09:09:00 Test Item Value Reference Range Interpretation Comments Glucose Lvl (test code = Glucose Lvl) 288 70-99 [facility]2022-06-29 09:09:00 Test Item Value Reference Range Interpretation Comments BUN (test code = BUN) 40 7-22 [place] 510012-06-29 09:09:00 Test Item Value Reference Range Interpretation Comments Creatinine Lvl (test code = Creatinine 6.23 0.50-1.40 Lvl) [place] 510012-06-29 09:09:00 Test Item Value Reference Range Interpretation Comments Sodium Lvl (test code = Sodium Lvl) 134 135-145 [place] 510012-06-29 09:09:00 Test Item Value Reference Range Interpretation Comments Potassium Lvl (test code = Potassium 4.5 3.5-5.1 Lvl) [place] 510012-06-29 09:09:00 Test Item Value Reference Range Interpretation Comments Chloride Lvl (test code = Chloride Lvl) 96 95-109 [place] 510012-06-29 09:09:00 Test Item Value Reference Range Interpretation Comments CO2 (test code = CO2) 29 24-32 [place] 510012-06-29 09:09:00 Test Item Value Reference Range Interpretation Comments AGAP (test code = AGAP) 13.5 10.0-20.0 [place] 510012-06-29 09:09:00 Test Item Value Reference Range Interpretation Comments Calcium Lvl (test code = Calcium Lvl) 9.1 8.5-10.5 [place] 510012-06-29 09:09:00 Test Item Value Reference Range Interpretation Comments B/C Ratio (test code = B/C Ratio) 6 1 6-25 [place] 510012-06-29 09:09:00 Test Item Value Reference Range Interpretation Comments Total Protein (test code = Total 6.3 6.4-8.4 Protein) [place] 510012-06-29 09:09:00 Test Item Value Reference Range Interpretation Comments Albumin Lvl (test code = Albumin Lvl) 2.5 3.5-5.0 [place] [address]47-06-29 09:09:00 Test Item Value Reference Range Interpretation Comments Globulin (test code = Globulin) 3.8 2.7-4.2 [place] 510012-06-29 09:09:00 Test Item Value Reference Range Interpretation Comments A/G Ratio (test code = A/G Ratio) 0.7 1 0.7-1.6 [place] 510012-06-29 09:09:00 Test Item Value Reference Range Interpretation Comments ALT (test code = ALT) 38 See_Comment [Auto mated message] The system which ge nerated this result transmit swathi reference range : <=65. The reference range was not used to interpr et this result as deny l/abnormal. [place] [address]-06-29 09:09:00 Test Item Value Reference Range Interpretation Comments AST (test code = AST) 31 See_Comment [Auto mated message] The system which ge nerated this result transmit swathi reference range : <=37. The reference range was not used to interpr et this result as deny l/abnormal. [place] 510012-06-29 09:09:00 Test Item Value Reference Range Interpretation Comments Alk Phos (test code = Alk Phos) 357 39-136 [place] 510012-06-29 09:09:00 Test Item Value Reference Range Interpretation Comments Bili Total (test code = Bili Total) 1.0 0.2-1.3 [place] 510012-06-29 09:09:00 Test Item Value Reference Range Interpretation Comments eGFR (test code = eGFR) 8 [place] 510012-06-29 09:09:00 Test Item Value Reference Range Interpretation Comments Magnesium Lvl (test code = Magnesium 2.0 1.8-2.4 Lvl) [place] 510012-06-29 09:09:00 Test Item Value Reference Range Interpretation Comments LDH (test code = LDH) 251 98-192 [place] 510012-06-29 09:09:00 Test Item Value Reference Range Interpretation Comments Procalcitonin Lvl (test 0.51 See_Comment [Au tomated message] code = Procalcitonin Lvl) Th e system which generated this result transmitted ref erence range: <=0.10. The reference range was not used to interpr et this result as normal/abnormal . [facility] CenterMnfhzpiHVLCZPGVJD0186-64-44 09:09:00 Test Item Value Reference Range Interpretation Comments D-Dimer (test code = D-Dimer) 5.06 [place] 526272-06-29 09:09:00 Test Item Value Reference Range Interpretation Comments WBC (test code = WBC) 4.8 3.7-10.4 [place] 526272-06-29 09:09:00 Test Item Value Reference Range Interpretation Comments RBC (test code = RBC) 2.14 4.70-6.10 [place] 526272-06-29 09:09:00 Test Item Value Reference Range Interpretation Comments Hgb (test code = Hgb) 7.7 14.0-18.0 [place] [address]-06-29 09:09:00 Test Item Value Reference Range Interpretation Comments Hct (test code = Hct) 22.8 42.0-54.0 [place] 526272-06-29 09:09:00 Test Item Value Reference Range Interpretation Comments MCV (test code = MCV) 106.5 80.0-94.0 [place] 526272-06-29 09:09:00 Test Item Value Reference Range Interpretation Comments MCH (test code = MCH) 36.1 pg 27.0-31.0 [place] 526272-06-29 09:09:00 Test Item Value Reference Range Interpretation Comments MCHC (test code = MCHC) 33.9 32.0-36.0 [place] 526272-06-29 09:09:00 Test Item Value Reference Range Interpretation Comments RDW (test code = RDW) 21.8 11.5-14.5 [place] 526272-06-29 09:09:00 Test Item Value Reference Range Interpretation Comments Platelet (test code = Platelet) 176 133-450 [place] 526272-06-29 09:09:00 Test Item Value Reference Range Interpretation Comments MPV (test code = MPV) 8.2 7.4-10.4 [place] 526272-06-29 09:09:00 Test Item Value Reference Range Interpretation Comments Segs (test code = Segs) 83.6 45.0-75.0 [place] [address]-06-29 09:09:00 Test Item Value Reference Range Interpretation Comments Lymphocytes (test code = Lymphocytes) 10.7 20.0-40.0 [place] 526272-06-29 09:09:00 Test Item Value Reference Range Interpretation Comments Monocytes (test code = Monocytes) 4.9 2.0-12.0 [place] 526272-06-29 09:09:00 Test Item Value Reference Range Interpretation Comments Eosinophils (test code = 0.4 See_Comment [A utomated message] The Eosinophils) system which ge nerated this result tra nsmitted reference range : <=4.0. The reference r samantha was not used to int erpret this result as normal/abnormal . [place] [address]-06-29 09:09:00 Test Item Value Reference Range Interpretation Comments Basophils (test code = 0.4 See_Comment [Aut omated message] The Basophils) system which ge nerated this result tra nsmitted reference range : <=1.0. The reference r samantha was not used to int erpret this result as normal/abnormal . [facility] CenterHbnxojiRGUKSXZOSY2849-40-60 09:09:00 Test Item Value Reference Range Interpretation Comments Neutrophils # (test code = Neutrophils 4.0 1.5-8.1 #) [facility] CenterArbhuzoACFQDBSUDA6254-58-68 09:09:00 Test Item Value Reference Range Interpretation Comments Lymphocytes # (test code = Lymphocytes 0.5 1.0-5.5 #) [facility] CenterJnzvnmfTRAIJMVCHB8162-38-72 09:09:00 Test Item Value Reference Range Interpretation Comments Monocytes # (test code 0.2 See_Comment [Aut omated message] The = Monocytes #) system which generated this result tra nsmitted reference range : <=0.8. The reference r samantha was not used to int erpret this result as normal/abnormal . [facility] CenterWvdayoyTLPHNXIFSU1885-56-21 09:09:00 Test Item Value Reference Range Interpretation Comments Macrocyte (test code = 1+ *ABN*(11/26/21 Macrocyte) 4:09 AM) [facility]ktZOULAUUOJB5440-84-61 09:09:00 Test Item Value Reference Range Interpretation Comments Interleukin 6 (test code = Interleukin 14.71 6) [place] 820012-06-29 09:09:00 Test Item Value Reference Range Interpretation Comments C-REACTIVE PROTEIN (test code = 95.9 C-REACTIVE PROTEIN) [facility]2022-06-29 09:09:00 Test Item Value Reference Range Interpretation Comments Ferritin Lvl (test code = Ferritin Lvl) 1543 22-275 [facility]2022-06-29 09:09:00 Test Item Value Reference Range Interpretation Comments Glucose Lvl (test code = Glucose Lvl) 288 70-99 [facility]2022-06-29 09:09:00 Test Item Value Reference Range Interpretation Comments BUN (test code = BUN) 40 7-22 [place] 510012-06-29 09:09:00 Test Item Value Reference Range Interpretation Comments Creatinine Lvl (test code = Creatinine 6.23 0.50-1.40 Lvl) [place] 510012-06-29 09:09:00 Test Item Value Reference Range Interpretation Comments Sodium Lvl (test code = Sodium Lvl) 134 135-145 [place] 510012-06-29 09:09:00 Test Item Value Reference Range Interpretation Comments Potassium Lvl (test code = Potassium 4.5 3.5-5.1 Lvl) [place] 510012-06-29 09:09:00 Test Item Value Reference Range Interpretation Comments Chloride Lvl (test code = Chloride Lvl) 96 95-109 [place] 510012-06-29 09:09:00 Test Item Value Reference Range Interpretation Comments CO2 (test code = CO2) 29 24-32 [place] 510012-06-29 09:09:00 Test Item Value Reference Range Interpretation Comments AGAP (test code = AGAP) 13.5 10.0-20.0 [place] 510012-06-29 09:09:00 Test Item Value Reference Range Interpretation Comments Calcium Lvl (test code = Calcium Lvl) 9.1 8.5-10.5 [place] 510012-06-29 09:09:00 Test Item Value Reference Range Interpretation Comments B/C Ratio (test code = B/C Ratio) 6 1 6-25 [place] 510012-06-29 09:09:00 Test Item Value Reference Range Interpretation Comments Total Protein (test code = Total 6.3 6.4-8.4 Protein) [place] 510012-06-29 09:09:00 Test Item Value Reference Range Interpretation Comments Albumin Lvl (test code = Albumin Lvl) 2.5 3.5-5.0 [place] 510012-06-29 09:09:00 Test Item Value Reference Range Interpretation Comments Globulin (test code = Globulin) 3.8 2.7-4.2 [place] 510012-06-29 09:09:00 Test Item Value Reference Range Interpretation Comments A/G Ratio (test code = A/G Ratio) 0.7 1 0.7-1.6 [place] 510012-06-29 09:09:00 Test Item Value Reference Range Interpretation Comments ALT (test code = ALT) 38 See_Comment [Auto mated message] The system which ge nerated this result transmit swathi reference range : <=65. The reference range was not used to interpr et this result as deny l/abnormal. [place] 510012-06-29 09:09:00 Test Item Value Reference Range Interpretation Comments AST (test code = AST) 31 See_Comment [Auto mated message] The system which ge nerated this result transmit swathi reference range : <=37. The reference range was not used to interpr et this result as deny l/abnormal. [place] 510012-06-29 09:09:00 Test Item Value Reference Range Interpretation Comments Alk Phos (test code = Alk Phos) 357 39-136 [facility] [id number] 09:09:00 Test Item Value Reference Range Interpretation Comments Bili Total (test code = Bili Total) 1.0 0.2-1.3 [place] 510012-06-29 09:09:00 Test Item Value Reference Range Interpretation Comments eGFR (test code = eGFR) 8 [place] 510012-06-29 09:09:00 Test Item Value Reference Range Interpretation Comments Magnesium Lvl (test code = Magnesium 2.0 1.8-2.4 Lvl) [place] 510012-06-29 09:09:00 Test Item Value Reference Range Interpretation Comments LDH (test code = LDH) 251 98-192 [facility] [id number] 09:09:00 Test Item Value Reference Range Interpretation Comments Procalcitonin Lvl (test 0.51 See_Comment [Au tomated message] code = Procalcitonin Lvl) Th e system which generated this result transmitted ref erence range: <=0.10. The reference range was not used to interpr et this result as normal/abnormal . [facility] KingwoodBhwtemoKTFHGFGGRS4244-78-25 09:09:00 Test Item Value Reference Range Interpretation Comments D-Dimer (test code = D-Dimer) 5.06 [place] [address]-06-29 09:09:00 Test Item Value Reference Range Interpretation Comments WBC (test code = WBC) 4.8 3.7-10.4 [place] [address]-06-29 09:09:00 Test Item Value Reference Range Interpretation Comments RBC (test code = RBC) 2.14 4.70-6.10 [place] [address]-06-29 09:09:00 Test Item Value Reference Range Interpretation Comments Hgb (test code = Hgb) 7.7 14.0-18.0 [facility] CenterTlidhceVZSXFSADPH5898-87-32 09:09:00 Test Item Value Reference Range Interpretation Comments Hct (test code = Hct) 22.8 42.0-54.0 [place] 526272-06-29 09:09:00 Test Item Value Reference Range Interpretation Comments MCV (test code = MCV) 106.5 80.0-94.0 [place] 526272-06-29 09:09:00 Test Item Value Reference Range Interpretation Comments MCH (test code = MCH) 36.1 pg 27.0-31.0 [place] 526272-06-29 09:09:00 Test Item Value Reference Range Interpretation Comments MCHC (test code = MCHC) 33.9 32.0-36.0 [place] 526272-06-29 09:09:00 Test Item Value Reference Range Interpretation Comments RDW (test code = RDW) 21.8 11.5-14.5 [place] 526272-06-29 09:09:00 Test Item Value Reference Range Interpretation Comments Platelet (test code = Platelet) 176 133-450 [facility] CenterOuzjjpfYDSCGSTYTF7511-37-97 09:09:00 Test Item Value Reference Range Interpretation Comments MPV (test code = MPV) 8.2 7.4-10.4 [facility] CenterYsocohhBCQYNUEKNM8684-45-29 09:09:00 Test Item Value Reference Range Interpretation Comments Segs (test code = Segs) 83.6 45.0-75.0 [place] 526272-06-29 09:09:00 Test Item Value Reference Range Interpretation Comments Lymphocytes (test code = Lymphocytes) 10.7 20.0-40.0 [place] 526272-06-29 09:09:00 Test Item Value Reference Range Interpretation Comments Monocytes (test code = Monocytes) 4.9 2.0-12.0 [place] 526272-06-29 09:09:00 Test Item Value Reference Range Interpretation Comments Eosinophils (test code = 0.4 See_Comment [A utomated message] The Eosinophils) system which ge nerated this result tra nsmitted reference range : <=4.0. The reference r samantha was not used to int erpret this result as normal/abnormal . [place] 526272-06-29 09:09:00 Test Item Value Reference Range Interpretation Comments Basophils (test code = 0.4 See_Comment [Aut omated message] The Basophils) system which ge nerated this result tra nsmitted reference range : <=1.0. The reference r samantah was not used to int erpret this result as normal/abnormal . [facility] CenterMfruckuVTMSWNATMI7019-21-46 09:09:00 Test Item Value Reference Range Interpretation Comments Neutrophils # (test code = Neutrophils 4.0 1.5-8.1 #) [facility] CenterMbdhcsmLIPHJTIIKC5950-99-18 09:09:00 Test Item Value Reference Range Interpretation Comments Lymphocytes # (test code = Lymphocytes 0.5 1.0-5.5 #) [facility] CenterZjdukamXYXTNPPJPP8161-28-76 09:09:00 Test Item Value Reference Range Interpretation Comments Monocytes # (test code 0.2 See_Comment [Aut omated message] The = Monocytes #) system which generated this result tra nsmitted reference range : <=0.8. The reference r samantha was not used to int erpret this result as normal/abnormal . [facility] CenterFxmxubcMIJRWDEFGH9278-89-09 09:09:00 Test Item Value Reference Range Interpretation Comments Macrocyte (test code = 1+ *ABN*(11/26/21 Macrocyte) 4:09 AM) [facility]villeWobbmyrOKYCEHGCAC2476-58-39 09:09:00 Test Item Value Reference Range Interpretation Comments Interleukin 6 (test code = Interleukin 14.71 6) [facility]villeOitrumrLWLJOFIBZW9351-47-67 09:09:00 Test Item Value Reference Range Interpretation Comments C-REACTIVE PROTEIN (test code = 95.9 C-REACTIVE PROTEIN) [facility]2022-06-29 09:09:00 Test Item Value Reference Range Interpretation Comments Ferritin Lvl (test code = Ferritin Lvl) 1543 22275 [facility]2022-06-29 09:09:00 Test Item Value Reference Range Interpretation Comments Glucose Lvl (test code = Glucose Lvl) 288 70-99 [facility]2022-06-29 09:09:00 Test Item Value Reference Range Interpretation Comments BUN (test code = BUN) 40 7-22 [facility]2022-06-29 09:09:00 Test Item Value Reference Range Interpretation Comments Creatinine Lvl (test code = Creatinine 6.23 0.50-1.40 Lvl) [place] 510012-06-29 09:09:00 Test Item Value Reference Range Interpretation Comments Sodium Lvl (test code = Sodium Lvl) 134 135-145 [place] 510012-06-29 09:09:00 Test Item Value Reference Range Interpretation Comments Potassium Lvl (test code = Potassium 4.5 3.5-5.1 Lvl) [place] 510012-06-29 09:09:00 Test Item Value Reference Range Interpretation Comments Chloride Lvl (test code = Chloride Lvl) 96 95-109 [place] 510012-06-29 09:09:00 Test Item Value Reference Range Interpretation Comments CO2 (test code = CO2) 29 24-32 [place] 510012-06-29 09:09:00 Test Item Value Reference Range Interpretation Comments AGAP (test code = AGAP) 13.5 10.0-20.0 [place] 510012-06-29 09:09:00 Test Item Value Reference Range Interpretation Comments Calcium Lvl (test code = Calcium Lvl) 9.1 8.5-10.5 [place] 510012-06-29 09:09:00 Test Item Value Reference Range Interpretation Comments B/C Ratio (test code = B/C Ratio) 6 1 6-25 [place] 510012-06-29 09:09:00 Test Item Value Reference Range Interpretation Comments Total Protein (test code = Total 6.3 6.4-8.4 Protein) [place] 510012-06-29 09:09:00 Test Item Value Reference Range Interpretation Comments Albumin Lvl (test code = Albumin Lvl) 2.5 3.5-5.0 [place] 510012-06-29 09:09:00 Test Item Value Reference Range Interpretation Comments Globulin (test code = Globulin) 3.8 2.7-4.2 [place] 510012-06-29 09:09:00 Test Item Value Reference Range Interpretation Comments A/G Ratio (test code = A/G Ratio) 0.7 1 0.7-1.6 [place] 510012-06-29 09:09:00 Test Item Value Reference Range Interpretation Comments ALT (test code = ALT) 38 See_Comment [Auto mated message] The system which ge nerated this result transmit swathi reference range : <=65. The reference range was not used to interpr et this result as deny l/abnormal. [facility] [employer] [id number] 09:09:00 Test Item Value Reference Range Interpretation Comments AST (test code = AST) 31 See_Comment [Auto mated message] The system which ge nerated this result transmit swathi reference range : <=37. The reference range was not used to interpr et this result as deny l/abnormal. [facility] [employer] [id number] 09:09:00 Test Item Value Reference Range Interpretation Comments Alk Phos (test code = Alk Phos) 357 39-136 [facility] [id number] 09:09:00 Test Item Value Reference Range Interpretation Comments Bili Total (test code = Bili Total) 1.0 0.2-1.3 [facility] [id number] 09:09:00 Test Item Value Reference Range Interpretation Comments eGFR (test code = eGFR) 8 [facility] [id number] 09:09:00 Test Item Value Reference Range Interpretation Comments Magnesium Lvl (test code = Magnesium 2.0 1.8-2.4 Lvl) [facility] [id number] 09:09:00 Test Item Value Reference Range Interpretation Comments LDH (test code = LDH) 251 98-192 [facility] [employer] [id number] 09:09:00 Test Item Value Reference Range Interpretation Comments Procalcitonin Lvl (test 0.51 See_Comment [Au tomated message] code = Procalcitonin Lvl) Th e system which generated this result transmitted ref erence range: <=0.10. The reference range was not used to interpr et this result as normal/abnormal . [facility]woodMlcikdyDDNQYIKHXC1473-53-51 09:09:00 Test Item Value Reference Range Interpretation Comments D-Dimer (test code = D-Dimer) 5.06 [facility] KingwoodUvilkvxSMLAEYUIRW7236-48-25 09:09:00 Test Item Value Reference Range Interpretation Comments WBC (test code = WBC) 4.8 3.7-10.4 [facility] KingwoodGgirvpvFJZXISPDMY6590-40-45 09:09:00 Test Item Value Reference Range Interpretation Comments RBC (test code = RBC) 2.14 4.70-6.10 [facility] CenterMscylylZWCWVPPYSM6625-26-19 09:09:00 Test Item Value Reference Range Interpretation Comments Hgb (test code = Hgb) 7.7 14.0-18.0 [place] 526272-06-29 09:09:00 Test Item Value Reference Range Interpretation Comments Hct (test code = Hct) 22.8 42.0-54.0 [facility] CenterOyvzwgeDMCXSXJVUR7175-51-59 09:09:00 Test Item Value Reference Range Interpretation Comments MCV (test code = MCV) 106.5 80.0-94.0 [place] 526272-06-29 09:09:00 Test Item Value Reference Range Interpretation Comments MCH (test code = MCH) 36.1 pg 27.0-31.0 [facility] CenterKcwkgniGBOLSZKZPP5753-82-71 09:09:00 Test Item Value Reference Range Interpretation Comments MCHC (test code = MCHC) 33.9 32.0-36.0 [place] 526272-06-29 09:09:00 Test Item Value Reference Range Interpretation Comments RDW (test code = RDW) 21.8 11.5-14.5 [place] 526272-06-29 09:09:00 Test Item Value Reference Range Interpretation Comments Platelet (test code = Platelet) 176 133-450 [facility] CenterYirwfusQJCRRZLZTY4999-64-10 09:09:00 Test Item Value Reference Range Interpretation Comments MPV (test code = MPV) 8.2 7.4-10.4 [place] 526272-06-29 09:09:00 Test Item Value Reference Range Interpretation Comments Segs (test code = Segs) 83.6 45.0-75.0 [place] 526272-06-29 09:09:00 Test Item Value Reference Range Interpretation Comments Lymphocytes (test code = Lymphocytes) 10.7 20.0-40.0 [place] 526272-06-29 09:09:00 Test Item Value Reference Range Interpretation Comments Monocytes (test code = Monocytes) 4.9 2.0-12.0 [place] 526272-06-29 09:09:00 Test Item Value Reference Range Interpretation Comments Eosinophils (test code = 0.4 See_Comment [A utomated message] The Eosinophils) system which ge nerated this result tra nsmitted reference range : <=4.0. The reference r samantha was not used to int erpret this result as normal/abnormal . [facility] CenterIwnywmoNDCFLGZBSK7613-07-64 09:09:00 Test Item Value Reference Range Interpretation Comments Basophils (test code = 0.4 See_Comment [Aut omated message] The Basophils) system which ge nerated this result tra nsmitted reference range : <=1.0. The reference r samantha was not used to int erpret this result as normal/abnormal . [facility] CenterEgpqppcGIEASXIBQD1880-56-14 09:09:00 Test Item Value Reference Range Interpretation Comments Neutrophils # (test code = Neutrophils 4.0 1.5-8.1 #) [facility] CenterTxeewunQBKIDTYNAG4922-85-16 09:09:00 Test Item Value Reference Range Interpretation Comments Lymphocytes # (test code = Lymphocytes 0.5 1.0-5.5 #) [facility] CenterDxkheaaQLSSJYKGDK2994-86-96 09:09:00 Test Item Value Reference Range Interpretation Comments Monocytes # (test code 0.2 See_Comment [Aut omated message] The = Monocytes #) system which generated this result tra nsmitted reference range : <=0.8. The reference r samantha was not used to int erpret this result as normal/abnormal . [facility] CenterKqorqfaLCJFNDOQQO5548-96-22 09:09:00 Test Item Value Reference Range Interpretation Comments Macrocyte (test code = 1+ *ABN*(11/26/21 Macrocyte) 4:09 AM) [facility] KingwoodQflbpzrAEXRPIJXHO5965-35-05 09:09:00 Test Item Value Reference Range Interpretation Comments Interleukin 6 (test code = Interleukin 14.71 6) [facility] KingwoodCijcilyBJVITQDAIW1980-63-16 09:09:00 Test Item Value Reference Range Interpretation Comments C-REACTIVE PROTEIN (test code = 95.9 C-REACTIVE PROTEIN) [facility]2022-06-29 09:09:00 Test Item Value Reference Range Interpretation Comments Ferritin Lvl (test code = Ferritin Lvl) 1543 39-261 [facility]2022-06-29 09:09:00 Test Item Value Reference Range Interpretation Comments Glucose Lvl (test code = Glucose Lvl) 288 70-99 [facility]2022-06-29 09:09:00 Test Item Value Reference Range Interpretation Comments BUN (test code = BUN) 40 7-22 [place] 510012-06-29 09:09:00 Test Item Value Reference Range Interpretation Comments Creatinine Lvl (test code = Creatinine 6.23 0.50-1.40 Lvl) [place] 510012-06-29 09:09:00 Test Item Value Reference Range Interpretation Comments Sodium Lvl (test code = Sodium Lvl) 134 135-145 [place] 510012-06-29 09:09:00 Test Item Value Reference Range Interpretation Comments Potassium Lvl (test code = Potassium 4.5 3.5-5.1 Lvl) [place] 510012-06-29 09:09:00 Test Item Value Reference Range Interpretation Comments Chloride Lvl (test code = Chloride Lvl) 96 95-109 [place] 510012-06-29 09:09:00 Test Item Value Reference Range Interpretation Comments CO2 (test code = CO2) 29 24-32 [place] 510012-06-29 09:09:00 Test Item Value Reference Range Interpretation Comments AGAP (test code = AGAP) 13.5 10.0-20.0 [facility] [id number] 09:09:00 Test Item Value Reference Range Interpretation Comments Calcium Lvl (test code = Calcium Lvl) 9.1 8.5-10.5 [place] 510012-06-29 09:09:00 Test Item Value Reference Range Interpretation Comments B/C Ratio (test code = B/C Ratio) 6 1 6-25 [place] 510012-06-29 09:09:00 Test Item Value Reference Range Interpretation Comments Total Protein (test code = Total 6.3 6.4-8.4 Protein) [place] 510012-06-29 09:09:00 Test Item Value Reference Range Interpretation Comments Albumin Lvl (test code = Albumin Lvl) 2.5 3.5-5.0 [place] 510012-06-29 09:09:00 Test Item Value Reference Range Interpretation Comments Globulin (test code = Globulin) 3.8 2.7-4.2 [facility] [id number] 09:09:00 Test Item Value Reference Range Interpretation Comments A/G Ratio (test code = A/G Ratio) 0.7 1 0.7-1.6 [facility] [id number] 09:09:00 Test Item Value Reference Range Interpretation Comments ALT (test code = ALT) 38 See_Comment [Auto mated message] The system which ge nerated this result transmit swathi reference range : <=65. The reference range was not used to interpr et this result as deny l/abnormal. [facility] [id number] 09:09:00 Test Item Value Reference Range Interpretation Comments AST (test code = AST) 31 See_Comment [Auto mated message] The system which ge nerated this result transmit swathi reference range : <=37. The reference range was not used to interpr et this result as deny l/abnormal. [facility] [id number] 09:09:00 Test Item Value Reference Range Interpretation Comments Alk Phos (test code = Alk Phos) 357 39-136 [facility] [id number] 09:09:00 Test Item Value Reference Range Interpretation Comments Bili Total (test code = Bili Total) 1.0 0.2-1.3 [facility] [id number] 09:09:00 Test Item Value Reference Range Interpretation Comments eGFR (test code = eGFR) 8 [facility] [id number] 09:09:00 Test Item Value Reference Range Interpretation Comments Magnesium Lvl (test code = Magnesium 2.0 1.8-2.4 Lvl) [facility] [id number] 09:09:00 Test Item Value Reference Range Interpretation Comments LDH (test code = LDH) 251 98-192 [facility] [id number] 09:09:00 Test Item Value Reference Range Interpretation Comments Procalcitonin Lvl (test 0.51 See_Comment [Au tomated message] code = Procalcitonin Lvl) Th e system which generated this result transmitted ref erence range: <=0.10. The reference range was not used to interpr et this result as normal/abnormal . [facility]woodJjawstyCCRZSEITCS6620-39-93 09:09:00 Test Item Value Reference Range Interpretation Comments D-Dimer (test code = D-Dimer) 5.06 [facility] CenterDgayygtXKDDGUJWUA4305-68-04 09:09:00 Test Item Value Reference Range Interpretation Comments WBC (test code = WBC) 4.8 3.7-10.4 [facility] CenterVzfmsdnUGLYFURBJQ4727-81-37 09:09:00 Test Item Value Reference Range Interpretation Comments RBC (test code = RBC) 2.14 4.70-6.10 [facility] CenterLcnzsprGKYXIZNLKI0660-85-53 09:09:00 Test Item Value Reference Range Interpretation Comments Hgb (test code = Hgb) 7.7 14.0-18.0 [facility] CenterDmbpywqYQMCSDWHVG3416-39-78 09:09:00 Test Item Value Reference Range Interpretation Comments Hct (test code = Hct) 22.8 42.0-54.0 [facility] CenterTrxfqvxPCXIYBSLCD9077-68-46 09:09:00 Test Item Value Reference Range Interpretation Comments MCV (test code = MCV) 106.5 80.0-94.0 [facility] CenterKnyayelSWJRIZHBSE8102-58-86 09:09:00 Test Item Value Reference Range Interpretation Comments MCH (test code = MCH) 36.1 pg 27.0-31.0 [facility] CenterXyahlozWXZGRYYPEX7068-78-34 09:09:00 Test Item Value Reference Range Interpretation Comments MCHC (test code = MCHC) 33.9 32.0-36.0 [facility] CenterMhguafyEQVBBWKZHA0036-75-58 09:09:00 Test Item Value Reference Range Interpretation Comments RDW (test code = RDW) 21.8 11.5-14.5 [facility] CenterRdrgfeoSMIWUSMJUA2831-64-85 09:09:00 Test Item Value Reference Range Interpretation Comments Platelet (test code = Platelet) 176 133-450 [facility] CenterHqhgbsfKPYJVBVNRM8788-81-99 09:09:00 Test Item Value Reference Range Interpretation Comments MPV (test code = MPV) 8.2 7.4-10.4 [facility] CenterPbdmhviAHDWCOBFNM5265-32-91 09:09:00 Test Item Value Reference Range Interpretation Comments Segs (test code = Segs) 83.6 45.0-75.0 [facility] CenterHwoeeetWVHSZPLETZ5533-63-63 09:09:00 Test Item Value Reference Range Interpretation Comments Lymphocytes (test code = Lymphocytes) 10.7 20.0-40.0 [facility] CenterHuwjaqwWHVQRSKGUV9669-39-98 09:09:00 Test Item Value Reference Range Interpretation Comments Monocytes (test code = Monocytes) 4.9 2.0-12.0 [facility] CenterVahigmjLUFKICYTWO3784-61-46 09:09:00 Test Item Value Reference Range Interpretation Comments Eosinophils (test code = 0.4 See_Comment [A utomated message] The Eosinophils) system which ge nerated this result tra nsmitted reference range : <=4.0. The reference r samantha was not used to int erpret this result as normal/abnormal . [facility] CenterFdwpqzfHCQBUWZIEB0738-36-18 09:09:00 Test Item Value Reference Range Interpretation Comments Basophils (test code = 0.4 See_Comment [Aut omated message] The Basophils) system which ge nerated this result tra nsmitted reference range : <=1.0. The reference r samantha was not used to int erpret this result as normal/abnormal . [facility] CenterWjxawtnLYZTNUFTHF9200-29-58 09:09:00 Test Item Value Reference Range Interpretation Comments Neutrophils # (test code = Neutrophils 4.0 1.5-8.1 #) [facility] CenterSxwhdjwMXGLBQMHVF0819-64-49 09:09:00 Test Item Value Reference Range Interpretation Comments Lymphocytes # (test code = Lymphocytes 0.5 1.0-5.5 #) [facility] CenterNdigydjIMZOVPCTLG9292-45-13 09:09:00 Test Item Value Reference Range Interpretation Comments Monocytes # (test code 0.2 See_Comment [Aut omated message] The = Monocytes #) system which generated this result tra nsmitted reference range : <=0.8. The reference r samantha was not used to int erpret this result as normal/abnormal . [facility] CenterLeglshcBESLOVRAKO4926-89-57 09:09:00 Test Item Value Reference Range Interpretation Comments Macrocyte (test code = 1+ *ABN*(11/26/21 Macrocyte) 4:09 AM) [facility]woodMqniaevOHQCZZPQCT3197-95-24 09:09:00 Test Item Value Reference Range Interpretation Comments Interleukin 6 (test code = Interleukin 14.71 6) [facility]villePsxzxwyJIXLPSMIAR5889-89-57 09:09:00 Test Item Value Reference Range Interpretation Comments C-REACTIVE PROTEIN (test code = 95.9 C-REACTIVE PROTEIN) [facility]2022-06-29 09:09:00 Test Item Value Reference Range Interpretation Comments Ferritin Lvl (test code = Ferritin Lvl) 8703 40-536 [place] 510012-06-29 09:09:00 Test Item Value Reference Range Interpretation Comments Glucose Lvl (test code = Glucose Lvl) 288 70-99 [place] 510012-06-29 09:09:00 Test Item Value Reference Range Interpretation Comments BUN (test code = BUN) 40 7-22 [place] 510012-06-29 09:09:00 Test Item Value Reference Range Interpretation Comments Creatinine Lvl (test code = Creatinine 6.23 0.50-1.40 Lvl) [place] 510012-06-29 09:09:00 Test Item Value Reference Range Interpretation Comments Sodium Lvl (test code = Sodium Lvl) 134 135-145 [place] 510012-06-29 09:09:00 Test Item Value Reference Range Interpretation Comments Potassium Lvl (test code = Potassium 4.5 3.5-5.1 Lvl) [place] 510012-06-29 09:09:00 Test Item Value Reference Range Interpretation Comments Chloride Lvl (test code = Chloride Lvl) 96 95-109 [place] 510012-06-29 09:09:00 Test Item Value Reference Range Interpretation Comments CO2 (test code = CO2) 29 24-32 [place] 510012-06-29 09:09:00 Test Item Value Reference Range Interpretation Comments AGAP (test code = AGAP) 13.5 10.0-20.0 [place] 510012-06-29 09:09:00 Test Item Value Reference Range Interpretation Comments Calcium Lvl (test code = Calcium Lvl) 9.1 8.5-10.5 [place] 510012-06-29 09:09:00 Test Item Value Reference Range Interpretation Comments B/C Ratio (test code = B/C Ratio) 6 1 6-25 [place] 510012-06-29 09:09:00 Test Item Value Reference Range Interpretation Comments Total Protein (test code = Total 6.3 6.4-8.4 Protein) [place] 510012-06-29 09:09:00 Test Item Value Reference Range Interpretation Comments Albumin Lvl (test code = Albumin Lvl) 2.5 3.5-5.0 [place] 510012-06-29 09:09:00 Test Item Value Reference Range Interpretation Comments Globulin (test code = Globulin) 3.8 2.7-4.2 [facility] CenterProspectWiseDANI[place] 11007SQHHL3635-56-05 09:09:00 Test Item Value Reference Range Interpretation Comments A/G Ratio (test code = A/G Ratio) 0.7 1 0.7-1.6 [place] 510012-06-29 09:09:00 Test Item Value Reference Range Interpretation Comments ALT (test code = ALT) 38 See_Comment [Auto mated message] The system which ge nerated this result transmit swathi reference range : <=65. The reference range was not used to interpr et this result as deny l/abnormal. [facility] UJVWW5685-98-17 09:09:00 Test Item Value Reference Range Interpretation Comments AST (test code = AST) 31 See_Comment [Auto mated message] The system which ge nerated this result transmit swathi reference range : <=37. The reference range was not used to interpr et this result as deny l/abnormal. [facility] [id number] 09:09:00 Test Item Value Reference Range Interpretation Comments Alk Phos (test code = Alk Phos) 357 39-136 [facility] [id number] 09:09:00 Test Item Value Reference Range Interpretation Comments Bili Total (test code = Bili Total) 1.0 0.2-1.3 [place] 510012-06-29 09:09:00 Test Item Value Reference Range Interpretation Comments eGFR (test code = eGFR) 8 [facility] BQLOG5633-10-01 09:09:00 Test Item Value Reference Range Interpretation Comments Magnesium Lvl (test code = Magnesium 2.0 1.8-2.4 Lvl) [facility] [id number] 09:09:00 Test Item Value Reference Range Interpretation Comments LDH (test code = LDH) 251 98-192 [facility] [id number] 09:09:00 Test Item Value Reference Range Interpretation Comments Procalcitonin Lvl (test 0.51 See_Comment [Au tomated message] code = Procalcitonin Lvl) Th e system which generated this result transmitted ref erence range: <=0.10. The reference range was not used to interpr et this result as normal/abnormal . [facility] CenterFcjexfbTYEPZPCPHK3625-84-45 09:09:00 Test Item Value Reference Range Interpretation Comments D-Dimer (test code = D-Dimer) 5.06 [place] 526272-06-29 09:09:00 Test Item Value Reference Range Interpretation Comments WBC (test code = WBC) 4.8 3.7-10.4 [place] 526272-06-29 09:09:00 Test Item Value Reference Range Interpretation Comments RBC (test code = RBC) 2.14 4.70-6.10 [place] 526272-06-29 09:09:00 Test Item Value Reference Range Interpretation Comments Hgb (test code = Hgb) 7.7 14.0-18.0 [place] [address]-06-29 09:09:00 Test Item Value Reference Range Interpretation Comments Hct (test code = Hct) 22.8 42.0-54.0 [place] 526272-06-29 09:09:00 Test Item Value Reference Range Interpretation Comments MCV (test code = MCV) 106.5 80.0-94.0 [facility] CenterKuquacvXTYBENOOUJ8813-03-38 09:09:00 Test Item Value Reference Range Interpretation Comments MCH (test code = MCH) 36.1 pg 27.0-31.0 [place] 526272-06-29 09:09:00 Test Item Value Reference Range Interpretation Comments MCHC (test code = MCHC) 33.9 32.0-36.0 [place] 526272-06-29 09:09:00 Test Item Value Reference Range Interpretation Comments RDW (test code = RDW) 21.8 11.5-14.5 [place] 526272-06-29 09:09:00 Test Item Value Reference Range Interpretation Comments Platelet (test code = Platelet) 176 133-450 [place] 526272-06-29 09:09:00 Test Item Value Reference Range Interpretation Comments MPV (test code = MPV) 8.2 7.4-10.4 [place] 526272-06-29 09:09:00 Test Item Value Reference Range Interpretation Comments Segs (test code = Segs) 83.6 45.0-75.0 [facility] CenterHdxkjfyUEVGPSRWNN2407-10-73 09:09:00 Test Item Value Reference Range Interpretation Comments Lymphocytes (test code = Lymphocytes) 10.7 20.0-40.0 [facility] CenterNrznocmFLOTLDTHUY6433-53-02 09:09:00 Test Item Value Reference Range Interpretation Comments Monocytes (test code = Monocytes) 4.9 2.0-12.0 [facility] CenterQnnvvfcLGTASLTVHR9579-93-38 09:09:00 Test Item Value Reference Range Interpretation Comments Eosinophils (test code = 0.4 See_Comment [A utomated message] The Eosinophils) system which ge nerated this result tra nsmitted reference range : <=4.0. The reference r samantha was not used to int erpret this result as normal/abnormal . [facility] CenterQljqwwjSAQWWNZKBY3791-19-92 09:09:00 Test Item Value Reference Range Interpretation Comments Basophils (test code = 0.4 See_Comment [Aut omated message] The Basophils) system which ge nerated this result tra nsmitted reference range : <=1.0. The reference r samantha was not used to int erpret this result as normal/abnormal . [facility] CenterMdjlvkpQFEFDZNXFC8299-75-12 09:09:00 Test Item Value Reference Range Interpretation Comments Neutrophils # (test code = Neutrophils 4.0 1.5-8.1 #) [facility] CenterOfhhhccFRYXCIZEVO7358-64-26 09:09:00 Test Item Value Reference Range Interpretation Comments Lymphocytes # (test code = Lymphocytes 0.5 1.0-5.5 #) [facility] CenterEiqjuhzQTTJNEQNWS0949-18-54 09:09:00 Test Item Value Reference Range Interpretation Comments Monocytes # (test code 0.2 See_Comment [Aut omated message] The = Monocytes #) system which generated this result tra nsmitted reference range : <=0.8. The reference r samantha was not used to int erpret this result as normal/abnormal . [facility] CenterGbkapqcEPHWVAFATB6973-47-20 09:09:00 Test Item Value Reference Range Interpretation Comments Macrocyte (test code = 1+ *ABN*(11/26/21 Macrocyte) 4:09 AM) [place] 820012-06-29 09:09:00 Test Item Value Reference Range Interpretation Comments Interleukin 6 (test code = Interleukin 14.71 6) [place] 820012-06-29 09:09:00 Test Item Value Reference Range Interpretation Comments C-REACTIVE PROTEIN (test code = 95.9 C-REACTIVE PROTEIN) [place] 526272-06-28 12:33:00 Test Item Value Reference Range Interpretation Comments Segs (test code = Segs) 84.8 45.0-75.0 [place] [address]-06-28 12:33:00 Test Item Value Reference Range Interpretation Comments Lymphocytes (test code = Lymphocytes) 11.6 20.0-40.0 [place] 526272-06-28 12:33:00 Test Item Value Reference Range Interpretation Comments Monocytes (test code = Monocytes) 2.8 2.0-12.0 [place] [address]-06-28 12:33:00 Test Item Value Reference Range Interpretation Comments Eosinophils (test code = 0.4 See_Comment [A utomated message] The Eosinophils) system which ge nerated this result tra nsmitted reference range : <=4.0. The reference r samantha was not used to int erpret this result as normal/abnormal . [place] [address]-06-28 12:33:00 Test Item Value Reference Range Interpretation Comments Basophils (test code = 0.4 See_Comment [Aut omated message] The Basophils) system which ge nerated this result tra nsmitted reference range : <=1.0. The reference r samantha was not used to int erpret this result as normal/abnormal . [place] 526272-06-28 12:33:00 Test Item Value Reference Range Interpretation Comments Neutrophils # (test code = Neutrophils 4.4 1.5-8.1 #) [place] 526272-06-28 12:33:00 Test Item Value Reference Range Interpretation Comments Lymphocytes # (test code = Lymphocytes 0.6 1.0-5.5 #) [place] [address]-06-28 12:33:00 Test Item Value Reference Range Interpretation Comments Monocytes # (test code 0.1 See_Comment [Aut omated message] The = Monocytes #) system which generated this result tra nsmitted reference range : <=0.8. The reference r samantha was not used to int erpret this result as normal/abnormal . [place] 526272-06-28 12:33:00 Test Item Value Reference Range Interpretation Comments Macrocyte (test code = 1+ *ABN*(11/25/21 Macrocyte) 7:33 AM) [facility] CenterTceclpyHUQBLXXVKW9093-02-50 12:33:00 Test Item Value Reference Range Interpretation Comments WBC (test code = WBC) 5.2 3.7-10.4 [facility] CenterRnqykmkOCBQHPAQMS2775-47-89 12:33:00 Test Item Value Reference Range Interpretation Comments RBC (test code = RBC) 2.18 4.70-6.10 [facility] CenterEzgdnxeXUQMUTGFKC0368-96-11 12:33:00 Test Item Value Reference Range Interpretation Comments Hgb (test code = Hgb) 7.8 14.0-18.0 [facility] CenterNskvukjBPLUNIATEQ7709-93-77 12:33:00 Test Item Value Reference Range Interpretation Comments Hct (test code = Hct) 23.6 42.0-54.0 [facility] CenterVpsudvnKRTYUAAATH2946-81-89 12:33:00 Test Item Value Reference Range Interpretation Comments MCV (test code = MCV) 108.4 80.0-94.0 [facility] CenterSvvdmgnHLPIELTXMS7835-18-59 12:33:00 Test Item Value Reference Range Interpretation Comments MCH (test code = MCH) 35.9 pg 27.0-31.0 [facility] CenterHohxcmmPJBAQFDPNE2786-95-75 12:33:00 Test Item Value Reference Range Interpretation Comments MCHC (test code = MCHC) 33.1 32.0-36.0 [facility] CenterApoqgzwJPYBVLTPNQ1755-73-41 12:33:00 Test Item Value Reference Range Interpretation Comments RDW (test code = RDW) 21.5 11.5-14.5 [facility] CenterVqudhvoERFLFRIODA7386-42-35 12:33:00 Test Item Value Reference Range Interpretation Comments Platelet (test code = Platelet) 167 133-450 [facility] CenterFcfitfaJCRUVNVGLU8255-89-92 12:33:00 Test Item Value Reference Range Interpretation Comments MPV (test code = MPV) 7.6 7.4-10.4 [facility] CenterQrchpzwDRMERGAPGE8273-32-28 12:33:00 Test Item Value Reference Range Interpretation Comments Segs (test code = Segs) 84.8 45.0-75.0 [facility] CenterKysxgqwUQXPYXHBZV3254-86-15 12:33:00 Test Item Value Reference Range Interpretation Comments Lymphocytes (test code = Lymphocytes) 11.6 20.0-40.0 [place] 526272-06-28 12:33:00 Test Item Value Reference Range Interpretation Comments Monocytes (test code = Monocytes) 2.8 2.0-12.0 [place] 526272-06-28 12:33:00 Test Item Value Reference Range Interpretation Comments Eosinophils (test code = 0.4 See_Comment [A utomated message] The Eosinophils) system which ge nerated this result tra nsmitted reference range : <=4.0. The reference r samantha was not used to int erpret this result as normal/abnormal . [place] 526272-06-28 12:33:00 Test Item Value Reference Range Interpretation Comments Basophils (test code = 0.4 See_Comment [Aut omated message] The Basophils) system which ge nerated this result tra nsmitted reference range : <=1.0. The reference r samantha was not used to int erpret this result as normal/abnormal . [facility] CenterNobgjqxKLLUABDTKI8421-10-46 12:33:00 Test Item Value Reference Range Interpretation Comments Neutrophils # (test code = Neutrophils 4.4 1.5-8.1 #) [facility] CenterYwphtmlWNDAIVNLYP2901-51-05 12:33:00 Test Item Value Reference Range Interpretation Comments Lymphocytes # (test code = Lymphocytes 0.6 1.0-5.5 #) [facility] CenterEkfybciQHFHGJMXQZ4538-97-19 12:33:00 Test Item Value Reference Range Interpretation Comments Monocytes # (test code 0.1 See_Comment [Aut omated message] The = Monocytes #) system which generated this result tra nsmitted reference range : <=0.8. The reference r samantha was not used to int erpret this result as normal/abnormal . [facility] CenterMuaabzcIDCGHWZXTQ3484-91-48 12:33:00 Test Item Value Reference Range Interpretation Comments Macrocyte (test code = 1+ *ABN*(11/25/21 Macrocyte) 7:33 AM) [place] 526272-06-28 12:33:00 Test Item Value Reference Range Interpretation Comments WBC (test code = WBC) 5.2 3.7-10.4 [place] 526272-06-28 12:33:00 Test Item Value Reference Range Interpretation Comments RBC (test code = RBC) 2.18 4.70-6.10 [place] 526272-06-28 12:33:00 Test Item Value Reference Range Interpretation Comments Hgb (test code = Hgb) 7.8 14.0-18.0 [place] 526272-06-28 12:33:00 Test Item Value Reference Range Interpretation Comments Hct (test code = Hct) 23.6 42.0-54.0 [place] 526272-06-28 12:33:00 Test Item Value Reference Range Interpretation Comments MCV (test code = MCV) 108.4 80.0-94.0 [place] 526272-06-28 12:33:00 Test Item Value Reference Range Interpretation Comments MCH (test code = MCH) 35.9 pg 27.0-31.0 [place] 526272-06-28 12:33:00 Test Item Value Reference Range Interpretation Comments MCHC (test code = MCHC) 33.1 32.0-36.0 [place] 526272-06-28 12:33:00 Test Item Value Reference Range Interpretation Comments RDW (test code = RDW) 21.5 11.5-14.5 [place] 526272-06-28 12:33:00 Test Item Value Reference Range Interpretation Comments Platelet (test code = Platelet) 167 133-450 [place] 526272-06-28 12:33:00 Test Item Value Reference Range Interpretation Comments MPV (test code = MPV) 7.6 7.4-10.4 [place] [address]-06-28 12:33:00 Test Item Value Reference Range Interpretation Comments Segs (test code = Segs) 84.8 45.0-75.0 [place] 526272-06-28 12:33:00 Test Item Value Reference Range Interpretation Comments Lymphocytes (test code = Lymphocytes) 11.6 20.0-40.0 [place] [address]-06-28 12:33:00 Test Item Value Reference Range Interpretation Comments Monocytes (test code = Monocytes) 2.8 2.0-12.0 [place] [address]-06-28 12:33:00 Test Item Value Reference Range Interpretation Comments Eosinophils (test code = 0.4 See_Comment [A utomated message] The Eosinophils) system which ge nerated this result tra nsmitted reference range : <=4.0. The reference r samantha was not used to int erpret this result as normal/abnormal . [facility] CenterOoqsliiUGSXPTSWBK1375-09-92 12:33:00 Test Item Value Reference Range Interpretation Comments Basophils (test code = 0.4 See_Comment [Aut omated message] The Basophils) system which ge nerated this result tra nsmitted reference range : <=1.0. The reference r samantha was not used to int erpret this result as normal/abnormal . [place] 526272-06-28 12:33:00 Test Item Value Reference Range Interpretation Comments Neutrophils # (test code = Neutrophils 4.4 1.5-8.1 #) [facility] CenterQrocciuSBGORBMIRF8684-07-31 12:33:00 Test Item Value Reference Range Interpretation Comments Lymphocytes # (test code = Lymphocytes 0.6 1.0-5.5 #) [place] 526272-06-28 12:33:00 Test Item Value Reference Range Interpretation Comments Monocytes # (test code 0.1 See_Comment [Aut omated message] The = Monocytes #) system which generated this result tra nsmitted reference range : <=0.8. The reference r samantha was not used to int erpret this result as normal/abnormal . [facility] CenterRrdhhagQIMSSETUNR7452-96-41 12:33:00 Test Item Value Reference Range Interpretation Comments Macrocyte (test code = 1+ *ABN*(11/25/21 Macrocyte) 7:33 AM) [place] 526272-06-28 12:33:00 Test Item Value Reference Range Interpretation Comments WBC (test code = WBC) 5.2 3.7-10.4 [place] 526272-06-28 12:33:00 Test Item Value Reference Range Interpretation Comments RBC (test code = RBC) 2.18 4.70-6.10 [place] 526272-06-28 12:33:00 Test Item Value Reference Range Interpretation Comments Hgb (test code = Hgb) 7.8 14.0-18.0 [place] 526272-06-28 12:33:00 Test Item Value Reference Range Interpretation Comments Hct (test code = Hct) 23.6 42.0-54.0 [place] 526272-06-28 12:33:00 Test Item Value Reference Range Interpretation Comments MCV (test code = MCV) 108.4 80.0-94.0 [place] [address]-06-28 12:33:00 Test Item Value Reference Range Interpretation Comments MCH (test code = MCH) 35.9 pg 27.0-31.0 [place] 526272-06-28 12:33:00 Test Item Value Reference Range Interpretation Comments MCHC (test code = MCHC) 33.1 32.0-36.0 [place] 526272-06-28 12:33:00 Test Item Value Reference Range Interpretation Comments RDW (test code = RDW) 21.5 11.5-14.5 [place] [address]-06-28 12:33:00 Test Item Value Reference Range Interpretation Comments Platelet (test code = Platelet) 167 133-450 [place] 526272-06-28 12:33:00 Test Item Value Reference Range Interpretation Comments MPV (test code = MPV) 7.6 7.4-10.4 [place] [address]-06-28 12:33:00 Test Item Value Reference Range Interpretation Comments Segs (test code = Segs) 84.8 45.0-75.0 [place] [address]-06-28 12:33:00 Test Item Value Reference Range Interpretation Comments Lymphocytes (test code = Lymphocytes) 11.6 20.0-40.0 [place] [address]-06-28 12:33:00 Test Item Value Reference Range Interpretation Comments Monocytes (test code = Monocytes) 2.8 2.0-12.0 [place] [address]-06-28 12:33:00 Test Item Value Reference Range Interpretation Comments Eosinophils (test code = 0.4 See_Comment [A utomated message] The Eosinophils) system which ge nerated this result tra nsmitted reference range : <=4.0. The reference r samantha was not used to int erpret this result as normal/abnormal . [place] [address]-06-28 12:33:00 Test Item Value Reference Range Interpretation Comments Basophils (test code = 0.4 See_Comment [Aut omated message] The Basophils) system which ge nerated this result tra nsmitted reference range : <=1.0. The reference r samantha was not used to int erpret this result as normal/abnormal . [place]272-06-28 12:33:00 Test Item Value Reference Range Interpretation Comments Neutrophils # (test code = Neutrophils 4.4 1.5-8.1 #) [place] 526272-06-28 12:33:00 Test Item Value Reference Range Interpretation Comments Lymphocytes # (test code = Lymphocytes 0.6 1.0-5.5 #) [place] 526272-06-28 12:33:00 Test Item Value Reference Range Interpretation Comments Monocytes # (test code 0.1 See_Comment [Aut omated message] The = Monocytes #) system which generated this result tra nsmitted reference range : <=0.8. The reference r samantha was not used to int erpret this result as normal/abnormal . [place] 526272-06-28 12:33:00 Test Item Value Reference Range Interpretation Comments Macrocyte (test code = 1+ *ABN*(11/25/21 Macrocyte) 7:33 AM) [place] 526272-06-28 12:33:00 Test Item Value Reference Range Interpretation Comments WBC (test code = WBC) 5.2 3.7-10.4 [place] 526272-06-28 12:33:00 Test Item Value Reference Range Interpretation Comments RBC (test code = RBC) 2.18 4.70-6.10 [place] 526272-06-28 12:33:00 Test Item Value Reference Range Interpretation Comments Hgb (test code = Hgb) 7.8 14.0-18.0 [place] 526272-06-28 12:33:00 Test Item Value Reference Range Interpretation Comments Hct (test code = Hct) 23.6 42.0-54.0 [place] 526272-06-28 12:33:00 Test Item Value Reference Range Interpretation Comments MCV (test code = MCV) 108.4 80.0-94.0 [place] [address]-06-28 12:33:00 Test Item Value Reference Range Interpretation Comments MCH (test code = MCH) 35.9 pg 27.0-31.0 [place] 526272-06-28 12:33:00 Test Item Value Reference Range Interpretation Comments MCHC (test code = MCHC) 33.1 32.0-36.0 [place] [address]-06-28 12:33:00 Test Item Value Reference Range Interpretation Comments RDW (test code = RDW) 21.5 11.5-14.5 [place] 526272-06-28 12:33:00 Test Item Value Reference Range Interpretation Comments Platelet (test code = Platelet) 167 133-450 [place] 526272-06-28 12:33:00 Test Item Value Reference Range Interpretation Comments MPV (test code = MPV) 7.6 7.4-10.4 [place] [address]-06-28 12:33:00 Test Item Value Reference Range Interpretation Comments Segs (test code = Segs) 84.8 45.0-75.0 [place] [address]-06-28 12:33:00 Test Item Value Reference Range Interpretation Comments Lymphocytes (test code = Lymphocytes) 11.6 20.0-40.0 [place] 526272-06-28 12:33:00 Test Item Value Reference Range Interpretation Comments Monocytes (test code = Monocytes) 2.8 2.0-12.0 [place] 526272-06-28 12:33:00 Test Item Value Reference Range Interpretation Comments Eosinophils (test code = 0.4 See_Comment [A utomated message] The Eosinophils) system which ge nerated this result tra nsmitted reference range : <=4.0. The reference r samantha was not used to int erpret this result as normal/abnormal . [place] 526272-06-28 12:33:00 Test Item Value Reference Range Interpretation Comments Basophils (test code = 0.4 See_Comment [Aut omated message] The Basophils) system which ge nerated this result tra nsmitted reference range : <=1.0. The reference r samantha was not used to int erpret this result as normal/abnormal . [place] 526272-06-28 12:33:00 Test Item Value Reference Range Interpretation Comments Neutrophils # (test code = Neutrophils 4.4 1.5-8.1 #) [place] 526272-06-28 12:33:00 Test Item Value Reference Range Interpretation Comments Lymphocytes # (test code = Lymphocytes 0.6 1.0-5.5 #) [place] 526272-06-28 12:33:00 Test Item Value Reference Range Interpretation Comments Monocytes # (test code 0.1 See_Comment [Aut omated message] The = Monocytes #) system which generated this result tra nsmitted reference range : <=0.8. The reference r samantha was not used to int erpret this result as normal/abnormal . [facility] CenterRgwmhxrPCZJGUAINI1620-78-96 12:33:00 Test Item Value Reference Range Interpretation Comments Macrocyte (test code = 1+ *ABN*(11/25/21 Macrocyte) 7:33 AM) [facility] CenterVvbbwhbVMJUBJUGMK0321-57-41 12:33:00 Test Item Value Reference Range Interpretation Comments WBC (test code = WBC) 5.2 3.7-10.4 [facility] CenterYzkmxgmPXCQHJBLJU3357-58-67 12:33:00 Test Item Value Reference Range Interpretation Comments RBC (test code = RBC) 2.18 4.70-6.10 [facility] CenterKpzmposXYQDPYWIDQ4888-02-21 12:33:00 Test Item Value Reference Range Interpretation Comments Hgb (test code = Hgb) 7.8 14.0-18.0 [facility] CenterYixoobyIVGOSSGGSK9126-75-27 12:33:00 Test Item Value Reference Range Interpretation Comments Hct (test code = Hct) 23.6 42.0-54.0 [facility] CenterTbsuqunBNGRAPUBCZ1774-93-96 12:33:00 Test Item Value Reference Range Interpretation Comments MCV (test code = MCV) 108.4 80.0-94.0 [facility] CenterGjwhiboSUKXUVEUGY9216-44-80 12:33:00 Test Item Value Reference Range Interpretation Comments MCH (test code = MCH) 35.9 pg 27.0-31.0 [facility] CenterNjbquaaNSIGNORSGI9921-07-88 12:33:00 Test Item Value Reference Range Interpretation Comments MCHC (test code = MCHC) 33.1 32.0-36.0 [facility] CenterErqnvsaEXFQQBIBYQ4959-58-06 12:33:00 Test Item Value Reference Range Interpretation Comments RDW (test code = RDW) 21.5 11.5-14.5 [facility] CenterPhlhnswYXZTDMLODQ5995-65-13 12:33:00 Test Item Value Reference Range Interpretation Comments Platelet (test code = Platelet) 167 133-450 [facility] CenterAtmvlewGSLXDKPSYU8138-73-99 12:33:00 Test Item Value Reference Range Interpretation Comments MPV (test code = MPV) 7.6 7.4-10.4 [place] 526272-06-28 12:33:00 Test Item Value Reference Range Interpretation Comments Segs (test code = Segs) 84.8 45.0-75.0 [place] 526272-06-28 12:33:00 Test Item Value Reference Range Interpretation Comments Lymphocytes (test code = Lymphocytes) 11.6 20.0-40.0 [place] 526272-06-28 12:33:00 Test Item Value Reference Range Interpretation Comments Monocytes (test code = Monocytes) 2.8 2.0-12.0 [place] [address]-06-28 12:33:00 Test Item Value Reference Range Interpretation Comments Eosinophils (test code = 0.4 See_Comment [A utomated message] The Eosinophils) system which ge nerated this result tra nsmitted reference range : <=4.0. The reference r samantha was not used to int erpret this result as normal/abnormal . [place] 526272-06-28 12:33:00 Test Item Value Reference Range Interpretation Comments Basophils (test code = 0.4 See_Comment [Aut omated message] The Basophils) system which ge nerated this result tra nsmitted reference range : <=1.0. The reference r samantha was not used to int erpret this result as normal/abnormal . [place] 526272-06-28 12:33:00 Test Item Value Reference Range Interpretation Comments Neutrophils # (test code = Neutrophils 4.4 1.5-8.1 #) [place] 526272-06-28 12:33:00 Test Item Value Reference Range Interpretation Comments Lymphocytes # (test code = Lymphocytes 0.6 1.0-5.5 #) [place] [address]-06-28 12:33:00 Test Item Value Reference Range Interpretation Comments Monocytes # (test code 0.1 See_Comment [Aut omated message] The = Monocytes #) system which generated this result tra nsmitted reference range : <=0.8. The reference r samantha was not used to int erpret this result as normal/abnormal . [place] 526272-06-28 12:33:00 Test Item Value Reference Range Interpretation Comments Macrocyte (test code = 1+ *ABN*(11/25/21 Macrocyte) 7:33 AM) [facility] CenterNcqdujaUKYXIZUTJN6703-33-91 12:33:00 Test Item Value Reference Range Interpretation Comments WBC (test code = WBC) 5.2 3.7-10.4 [place] 526272-06-28 12:33:00 Test Item Value Reference Range Interpretation Comments RBC (test code = RBC) 2.18 4.70-6.10 [place] 526272-06-28 12:33:00 Test Item Value Reference Range Interpretation Comments Hgb (test code = Hgb) 7.8 14.0-18.0 [place] 526272-06-28 12:33:00 Test Item Value Reference Range Interpretation Comments Hct (test code = Hct) 23.6 42.0-54.0 [place] 526272-06-28 12:33:00 Test Item Value Reference Range Interpretation Comments MCV (test code = MCV) 108.4 80.0-94.0 [place] 526272-06-28 12:33:00 Test Item Value Reference Range Interpretation Comments MCH (test code = MCH) 35.9 pg 27.0-31.0 [facility] CenterQlsvovsZPLRZRALSW2876-79-92 12:33:00 Test Item Value Reference Range Interpretation Comments MCHC (test code = MCHC) 33.1 32.0-36.0 [facility] CenterUwhrmxrHSVPHJFLDX1121-32-50 12:33:00 Test Item Value Reference Range Interpretation Comments RDW (test code = RDW) 21.5 11.5-14.5 [place] 526272-06-28 12:33:00 Test Item Value Reference Range Interpretation Comments Platelet (test code = Platelet) 167 133-450 [facility] CenterFuhccwdKKUWINVUKI5826-09-23 12:33:00 Test Item Value Reference Range Interpretation Comments MPV (test code = MPV) 7.6 7.4-10.4 [place] 526272-06-28 12:33:00 Test Item Value Reference Range Interpretation Comments Segs (test code = Segs) 84.8 45.0-75.0 [place] 526272-06-28 12:33:00 Test Item Value Reference Range Interpretation Comments Lymphocytes (test code = Lymphocytes) 11.6 20.0-40.0 [place] 526272-06-28 12:33:00 Test Item Value Reference Range Interpretation Comments Monocytes (test code = Monocytes) 2.8 2.0-12.0 [place] 526272-06-28 12:33:00 Test Item Value Reference Range Interpretation Comments Eosinophils (test code = 0.4 See_Comment [A utomated message] The Eosinophils) system which ge nerated this result tra nsmitted reference range : <=4.0. The reference r samantha was not used to int erpret this result as normal/abnormal . [facility] CenterGncbccaYDYGOVHSPH7324-06-03 12:33:00 Test Item Value Reference Range Interpretation Comments Basophils (test code = 0.4 See_Comment [Aut omated message] The Basophils) system which ge nerated this result tra nsmitted reference range : <=1.0. The reference r samantha was not used to int erpret this result as normal/abnormal . [place]272-06-28 12:33:00 Test Item Value Reference Range Interpretation Comments Neutrophils # (test code = Neutrophils 4.4 1.5-8.1 #) [facility] CenterSyaifxnGUVECOLSNA7487-53-60 12:33:00 Test Item Value Reference Range Interpretation Comments Lymphocytes # (test code = Lymphocytes 0.6 1.0-5.5 #) [place] 526272-06-28 12:33:00 Test Item Value Reference Range Interpretation Comments Monocytes # (test code 0.1 See_Comment [Aut omated message] The = Monocytes #) system which generated this result tra nsmitted reference range : <=0.8. The reference r samantha was not used to int erpret this result as normal/abnormal . [facility] CenterZnrrinuQBRRBTSVKN6623-44-39 12:33:00 Test Item Value Reference Range Interpretation Comments Macrocyte (test code = 1+ *ABN*(11/25/21 Macrocyte) 7:33 AM) [place] 526272-06-28 12:33:00 Test Item Value Reference Range Interpretation Comments WBC (test code = WBC) 5.2 3.7-10.4 [place] 526272-06-28 12:33:00 Test Item Value Reference Range Interpretation Comments RBC (test code = RBC) 2.18 4.70-6.10 [place] 526272-06-28 12:33:00 Test Item Value Reference Range Interpretation Comments Hgb (test code = Hgb) 7.8 14.0-18.0 [place] 526272-06-28 12:33:00 Test Item Value Reference Range Interpretation Comments Hct (test code = Hct) 23.6 42.0-54.0 [place] 526272-06-28 12:33:00 Test Item Value Reference Range Interpretation Comments MCV (test code = MCV) 108.4 80.0-94.0 [place] 526272-06-28 12:33:00 Test Item Value Reference Range Interpretation Comments MCH (test code = MCH) 35.9 pg 27.0-31.0 [facility] CenterJbqpfvtKYZEVCMZUJ8231-63-71 12:33:00 Test Item Value Reference Range Interpretation Comments MCHC (test code = MCHC) 33.1 32.0-36.0 [place] 526272-06-28 12:33:00 Test Item Value Reference Range Interpretation Comments RDW (test code = RDW) 21.5 11.5-14.5 [facility] CenterMqweujlPDRIGFWZHR4458-40-96 12:33:00 Test Item Value Reference Range Interpretation Comments Platelet (test code = Platelet) 167 133-450 [facility] CenterCvbpbrsEEYJLQPEJW6816-14-95 12:33:00 Test Item Value Reference Range Interpretation Comments MPV (test code = MPV) 7.6 7.4-10.4 [facility]2022-06-28 11:17:00 Test Item Value Reference Range Interpretation Comments Vitamin B12 Lvl (test code = Vitamin 1508 B12 Lvl) [facility]2022-06-28 11:17:00 Test Item Value Reference Range Interpretation Comments Folate Lvl (test code = Folate Lvl) 22.3 [facility]2022-06-28 11:17:00 Test Item Value Reference Range Interpretation Comments Ferritin Lvl (test code = Ferritin Lvl) 1423 71-590 [facility]2022-06-28 11:17:00 Test Item Value Reference Range Interpretation Comments Glucose Lvl (test code = Glucose Lvl) 205 70-99 [facility]2022-06-28 11:17:00 Test Item Value Reference Range Interpretation Comments BUN (test code = BUN) 60 7-22 [place] 510012-06-28 11:17:00 Test Item Value Reference Range Interpretation Comments Creatinine Lvl (test code = Creatinine 8.46 0.50-1.40 Lvl) [place] 510012-06-28 11:17:00 Test Item Value Reference Range Interpretation Comments Sodium Lvl (test code = Sodium Lvl) 131 135-145 [place] 510012-06-28 11:17:00 Test Item Value Reference Range Interpretation Comments Potassium Lvl (test code = Potassium 5.2 3.5-5.1 Lvl) [place] 510012-06-28 11:17:00 Test Item Value Reference Range Interpretation Comments Chloride Lvl (test code = Chloride Lvl) 93 95-109 [place] 510012-06-28 11:17:00 Test Item Value Reference Range Interpretation Comments CO2 (test code = CO2) 29 24-32 [place] 510012-06-28 11:17:00 Test Item Value Reference Range Interpretation Comments Calcium Lvl (test code = Calcium Lvl) 8.7 8.5-10.5 [place] 510012-06-28 11:17:00 Test Item Value Reference Range Interpretation Comments Total Protein (test code = Total 6.0 6.4-8.4 Protein) [place] 510012-06-28 11:17:00 Test Item Value Reference Range Interpretation Comments Albumin Lvl (test code = Albumin Lvl) 2.6 3.5-5.0 [place] 510012-06-28 11:17:00 Test Item Value Reference Range Interpretation Comments ALT (test code = ALT) 43 See_Comment [Auto mated message] The system which ge nerated this result transmit swathi reference range : <=65. The reference range was not used to interpr et this result as deny l/abnormal. [place]10012-06-28 11:17:00 Test Item Value Reference Range Interpretation Comments AST (test code = AST) 35 See_Comment [Auto mated message] The system which ge nerated this result transmit swathi reference range : <=37. The reference range was not used to interpr et this result as deny l/abnormal. [place]10012-06-28 11:17:00 Test Item Value Reference Range Interpretation Comments Alk Phos (test code = Alk Phos) 385 39-136 [facility]2022-06-28 11:17:00 Test Item Value Reference Range Interpretation Comments Bili Total (test code = Bili Total) 1.2 0.2-1.3 [facility]2022-06-28 11:17:00 Test Item Value Reference Range Interpretation Comments AGAP (test code = AGAP) 14.2 10.0-20.0 [facility]2022-06-28 11:17:00 Test Item Value Reference Range Interpretation Comments B/C Ratio (test code = B/C Ratio) 7 1 6-25 [facility]2022-06-28 11:17:00 Test Item Value Reference Range Interpretation Comments Globulin (test code = Globulin) 3.4 2.7-4.2 [facility]2022-06-28 11:17:00 Test Item Value Reference Range Interpretation Comments A/G Ratio (test code = A/G Ratio) 0.8 1 0.7-1.6 [facility]2022-06-28 11:17:00 Test Item Value Reference Range Interpretation Comments eGFR (test code = eGFR) 6 [facility]2022-06-28 11:17:00 Test Item Value Reference Range Interpretation Comments Magnesium Lvl (test code = Magnesium 1.9 1.8-2.4 Lvl) [facility]2022-06-28 11:17:00 Test Item Value Reference Range Interpretation Comments LDH (test code = LDH) 297 98-192 [facility]2022-06-28 11:17:00 Test Item Value Reference Range Interpretation Comments Procalcitonin Lvl (test 0.63 See_Comment [Au tomated message] code = Procalcitonin Lvl) Th e system which generated this result transmitted ref erence range: <=0.10. The reference range was not used to interpr et this result as normal/abnormal . [facility] CenterHpfrzbbHMOYEJKBCC2033-48-12 11:17:00 Test Item Value Reference Range Interpretation Comments D-Dimer (test code = D-Dimer) 5.33 [facility]45[facility]-35 11:17:00 Test Item Value Reference Range Interpretation Comments Hep Bs Ag (test code Negative *NA*(11/25/21 = Hep Bs Ag) 6:17 AM) [place] 820012-06-28 11:17:00 Test Item Value Reference Range Interpretation Comments C-REACTIVE PROTEIN (test code = 134.0 C-REACTIVE PROTEIN) [place] 820012-06-28 11:17:00 Test Item Value Reference Range Interpretation Comments Interleukin 6 (test code = Interleukin 25.99 6) [facility]2022-06-28 11:17:00 Test Item Value Reference Range Interpretation Comments Vitamin B12 Lvl (test code = Vitamin 1508 B12 Lvl) [facility]2022-06-28 11:17:00 Test Item Value Reference Range Interpretation Comments Folate Lvl (test code = Folate Lvl) 22.3 [facility]2022-06-28 11:17:00 Test Item Value Reference Range Interpretation Comments Ferritin Lvl (test code = Ferritin Lvl) 1423 22275 [place] 510012-06-28 11:17:00 Test Item Value Reference Range Interpretation Comments Glucose Lvl (test code = Glucose Lvl) 205 70-99 [place] 510012-06-28 11:17:00 Test Item Value Reference Range Interpretation Comments BUN (test code = BUN) 60 7-22 [facility]2022-06-28 11:17:00 Test Item Value Reference Range Interpretation Comments Creatinine Lvl (test code = Creatinine 8.46 0.50-1.40 Lvl) [place]10012-06-28 11:17:00 Test Item Value Reference Range Interpretation Comments Sodium Lvl (test code = Sodium Lvl) 131 135-145 [place] 510012-06-28 11:17:00 Test Item Value Reference Range Interpretation Comments Potassium Lvl (test code = Potassium 5.2 3.5-5.1 Lvl) [place]10012-06-28 11:17:00 Test Item Value Reference Range Interpretation Comments Chloride Lvl (test code = Chloride Lvl) 93 95-109 [place] 510012-06-28 11:17:00 Test Item Value Reference Range Interpretation Comments CO2 (test code = CO2) 29 24-32 [place] 510012-06-28 11:17:00 Test Item Value Reference Range Interpretation Comments Calcium Lvl (test code = Calcium Lvl) 8.7 8.5-10.5 [place] 510012-06-28 11:17:00 Test Item Value Reference Range Interpretation Comments Total Protein (test code = Total 6.0 6.4-8.4 Protein) [place] 510012-06-28 11:17:00 Test Item Value Reference Range Interpretation Comments Albumin Lvl (test code = Albumin Lvl) 2.6 3.5-5.0 [place]10012-06-28 11:17:00 Test Item Value Reference Range Interpretation Comments ALT (test code = ALT) 43 See_Comment [Auto mated message] The system which ge nerated this result transmit swathi reference range : <=65. The reference range was not used to interpr et this result as deny l/abnormal. [place]10012-06-28 11:17:00 Test Item Value Reference Range Interpretation Comments AST (test code = AST) 35 See_Comment [Auto mated message] The system which ge nerated this result transmit swathi reference range : <=37. The reference range was not used to interpr et this result as deny l/abnormal. [facility]2022-06-28 11:17:00 Test Item Value Reference Range Interpretation Comments Alk Phos (test code = Alk Phos) 385 39-136 [place]10012-06-28 11:17:00 Test Item Value Reference Range Interpretation Comments Bili Total (test code = Bili Total) 1.2 0.2-1.3 [place]10012-06-28 11:17:00 Test Item Value Reference Range Interpretation Comments AGAP (test code = AGAP) 14.2 10.0-20.0 [place] 510012-06-28 11:17:00 Test Item Value Reference Range Interpretation Comments B/C Ratio (test code = B/C Ratio) 7 1 6-25 [place] 510012-06-28 11:17:00 Test Item Value Reference Range Interpretation Comments Globulin (test code = Globulin) 3.4 2.7-4.2 [place] 510012-06-28 11:17:00 Test Item Value Reference Range Interpretation Comments A/G Ratio (test code = A/G Ratio) 0.8 1 0.7-1.6 [place]10012-06-28 11:17:00 Test Item Value Reference Range Interpretation Comments eGFR (test code = eGFR) 6 [facility]2022-06-28 11:17:00 Test Item Value Reference Range Interpretation Comments Magnesium Lvl (test code = Magnesium 1.9 1.8-2.4 Lvl) [place]10012-06-28 11:17:00 Test Item Value Reference Range Interpretation Comments LDH (test code = LDH) 297 98-192 [facility]2022-06-28 11:17:00 Test Item Value Reference Range Interpretation Comments Procalcitonin Lvl (test 0.63 See_Comment [Au tomated message] code = Procalcitonin Lvl) e system which generated this result transmitted ref erence range: <=0.10. The reference range was not used to interpr et this result as normal/abnormal . [facility] CenterLgimchlRBCIEYCHJQ4084-53-73 11:17:00 Test Item Value Reference Range Interpretation Comments D-Dimer (test code = D-Dimer) 5.33 [facility]KjfesayIFPJCKGQAQ2176-92-51 11:17:00 Test Item Value Reference Range Interpretation Comments Hep Bs Ag (test code Negative *NA*(11/25/21 = Hep Bs Ag) 6:17 AM) [place] 820012-06-28 11:17:00 Test Item Value Reference Range Interpretation Comments C-REACTIVE PROTEIN (test code = 134.0 C-REACTIVE PROTEIN) [facility]pkeizXRPOLCJLGU1270-52-76 11:17:00 Test Item Value Reference Range Interpretation Comments Interleukin 6 (test code = Interleukin 25.99 6) [facility]2022-06-28 11:17:00 Test Item Value Reference Range Interpretation Comments Vitamin B12 Lvl (test code = Vitamin 1508 B12 Lvl) [facility]2022-06-28 11:17:00 Test Item Value Reference Range Interpretation Comments Folate Lvl (test code = Folate Lvl) 22.3 [facility] [facility]2022-06-28 11:17:00 Test Item Value Reference Range Interpretation Comments Ferritin Lvl (test code = Ferritin Lvl) 1423 98-237 [place] 510012-06-28 11:17:00 Test Item Value Reference Range Interpretation Comments Glucose Lvl (test code = Glucose Lvl) 205 70-99 [place] 510012-06-28 11:17:00 Test Item Value Reference Range Interpretation Comments BUN (test code = BUN) 60 7-22 [place] 510012-06-28 11:17:00 Test Item Value Reference Range Interpretation Comments Creatinine Lvl (test code = Creatinine 8.46 0.50-1.40 Lvl) [place] 510012-06-28 11:17:00 Test Item Value Reference Range Interpretation Comments Sodium Lvl (test code = Sodium Lvl) 131 135-145 [place] 510012-06-28 11:17:00 Test Item Value Reference Range Interpretation Comments Potassium Lvl (test code = Potassium 5.2 3.5-5.1 Lvl) [place] 510012-06-28 11:17:00 Test Item Value Reference Range Interpretation Comments Chloride Lvl (test code = Chloride Lvl) 93 95-109 [place] 510012-06-28 11:17:00 Test Item Value Reference Range Interpretation Comments CO2 (test code = CO2) 29 24-32 [place] 510012-06-28 11:17:00 Test Item Value Reference Range Interpretation Comments Calcium Lvl (test code = Calcium Lvl) 8.7 8.5-10.5 [place] 510012-06-28 11:17:00 Test Item Value Reference Range Interpretation Comments Total Protein (test code = Total 6.0 6.4-8.4 Protein) [place] 510012-06-28 11:17:00 Test Item Value Reference Range Interpretation Comments Albumin Lvl (test code = Albumin Lvl) 2.6 3.5-5.0 [place] 510012-06-28 11:17:00 Test Item Value Reference Range Interpretation Comments ALT (test code = ALT) 43 See_Comment [Auto mated message] The system which ge nerated this result transmit swathi reference range : <=65. The reference range was not used to interpr et this result as deny l/abnormal. [place] 510012-06-28 11:17:00 Test Item Value Reference Range Interpretation Comments AST (test code = AST) 35 See_Comment [Auto mated message] The system which ge nerated this result transmit swathi reference range : <=37. The reference range was not used to interpr et this result as deny l/abnormal. [facility]2022-06-28 11:17:00 Test Item Value Reference Range Interpretation Comments Alk Phos (test code = Alk Phos) 385 39-136 [facility]2022-06-28 11:17:00 Test Item Value Reference Range Interpretation Comments Bili Total (test code = Bili Total) 1.2 0.2-1.3 [facility]2022-06-28 11:17:00 Test Item Value Reference Range Interpretation Comments AGAP (test code = AGAP) 14.2 10.0-20.0 [facility]2022-06-28 11:17:00 Test Item Value Reference Range Interpretation Comments B/C Ratio (test code = B/C Ratio) 7 1 6-25 [facility]2022-06-28 11:17:00 Test Item Value Reference Range Interpretation Comments Globulin (test code = Globulin) 3.4 2.7-4.2 [facility]2022-06-28 11:17:00 Test Item Value Reference Range Interpretation Comments A/G Ratio (test code = A/G Ratio) 0.8 1 0.7-1.6 [facility]2022-06-28 11:17:00 Test Item Value Reference Range Interpretation Comments eGFR (test code = eGFR) 6 [facility]2022-06-28 11:17:00 Test Item Value Reference Range Interpretation Comments Magnesium Lvl (test code = Magnesium 1.9 1.8-2.4 Lvl) [facility]2022-06-28 11:17:00 Test Item Value Reference Range Interpretation Comments LDH (test code = LDH) 297 98-192 [facility]2022-06-28 11:17:00 Test Item Value Reference Range Interpretation Comments Procalcitonin Lvl (test 0.63 See_Comment [Au tomated message] code = Procalcitonin Lvl) Th e system which generated this result transmitted ref erence range: <=0.10. The reference range was not used to interpr et this result as normal/abnormal . [facility]lcoyeeFLXTBNMMAD3257-51-21 11:17:00 Test Item Value Reference Range Interpretation Comments D-Dimer (test code = D-Dimer) 5.33 [place] 820012-06-28 11:17:00 Test Item Value Reference Range Interpretation Comments Hep Bs Ag (test code Negative *NA*(11/25/21 = Hep Bs Ag) 6:17 AM) [place] 820012-06-28 11:17:00 Test Item Value Reference Range Interpretation Comments C-REACTIVE PROTEIN (test code = 134.0 C-REACTIVE PROTEIN) [place] 820012-06-28 11:17:00 Test Item Value Reference Range Interpretation Comments Interleukin 6 (test code = Interleukin 25.99 6) [facility] [place]2022-06-28 11:17:00 Test Item Value Reference Range Interpretation Comments Vitamin B12 Lvl (test code = Vitamin 1508 B12 Lvl) [facility]2022-06-28 11:17:00 Test Item Value Reference Range Interpretation Comments Folate Lvl (test code = Folate Lvl) 22.3 [facility]2022-06-28 11:17:00 Test Item Value Reference Range Interpretation Comments Ferritin Lvl (test code = Ferritin Lvl) 1423 22-275 [facility]2022-06-28 11:17:00 Test Item Value Reference Range Interpretation Comments Glucose Lvl (test code = Glucose Lvl) 205 70-99 [place] 510012-06-28 11:17:00 Test Item Value Reference Range Interpretation Comments BUN (test code = BUN) 60 7-22 [place] 510012-06-28 11:17:00 Test Item Value Reference Range Interpretation Comments Creatinine Lvl (test code = Creatinine 8.46 0.50-1.40 Lvl) [facility]2022-06-28 11:17:00 Test Item Value Reference Range Interpretation Comments Sodium Lvl (test code = Sodium Lvl) 131 135-145 [place] 510012-06-28 11:17:00 Test Item Value Reference Range Interpretation Comments Potassium Lvl (test code = Potassium 5.2 3.5-5.1 Lvl) [place] 510012-06-28 11:17:00 Test Item Value Reference Range Interpretation Comments Chloride Lvl (test code = Chloride Lvl) 93 95-109 [facility]2022-06-28 11:17:00 Test Item Value Reference Range Interpretation Comments CO2 (test code = CO2) 29 24-32 [place] 510012-06-28 11:17:00 Test Item Value Reference Range Interpretation Comments Calcium Lvl (test code = Calcium Lvl) 8.7 8.5-10.5 [place] 510012-06-28 11:17:00 Test Item Value Reference Range Interpretation Comments Total Protein (test code = Total 6.0 6.4-8.4 Protein) [place] 510012-06-28 11:17:00 Test Item Value Reference Range Interpretation Comments Albumin Lvl (test code = Albumin Lvl) 2.6 3.5-5.0 [facility]2022-06-28 11:17:00 Test Item Value Reference Range Interpretation Comments ALT (test code = ALT) 43 See_Comment [Auto mated message] The system which ge nerated this result transmit swathi reference range : <=65. The reference range was not used to interpr et this result as deny l/abnormal. [facility]2022-06-28 11:17:00 Test Item Value Reference Range Interpretation Comments AST (test code = AST) 35 See_Comment [Auto mated message] The system which ge nerated this result transmit swathi reference range : <=37. The reference range was not used to interpr et this result as deny l/abnormal. [facility]2022-06-28 11:17:00 Test Item Value Reference Range Interpretation Comments Alk Phos (test code = Alk Phos) 385 39-136 [facility]2022-06-28 11:17:00 Test Item Value Reference Range Interpretation Comments Bili Total (test code = Bili Total) 1.2 0.2-1.3 [place] 510012-06-28 11:17:00 Test Item Value Reference Range Interpretation Comments AGAP (test code = AGAP) 14.2 10.0-20.0 [place] 510012-06-28 11:17:00 Test Item Value Reference Range Interpretation Comments B/C Ratio (test code = B/C Ratio) 7 1 6-25 [place] 510012-06-28 11:17:00 Test Item Value Reference Range Interpretation Comments Globulin (test code = Globulin) 3.4 2.7-4.2 [facility]2022-06-28 11:17:00 Test Item Value Reference Range Interpretation Comments A/G Ratio (test code = A/G Ratio) 0.8 1 0.7-1.6 [facility]2022-06-28 11:17:00 Test Item Value Reference Range Interpretation Comments eGFR (test code = eGFR) 6 [facility]2022-06-28 11:17:00 Test Item Value Reference Range Interpretation Comments Magnesium Lvl (test code = Magnesium 1.9 1.8-2.4 Lvl) [place] 510012-06-28 11:17:00 Test Item Value Reference Range Interpretation Comments LDH (test code = LDH) 297 98-192 [facility]2022-06-28 11:17:00 Test Item Value Reference Range Interpretation Comments Procalcitonin Lvl (test 0.63 See_Comment [Au tomated message] code = Procalcitonin Lvl) e system which generated this result transmitted ref erence range: <=0.10. The reference range was not used to interpr et this result as normal/abnormal . [facility] CenterRrflxcoHMTRVEWTKE3433-97-80 11:17:00 Test Item Value Reference Range Interpretation Comments D-Dimer (test code = D-Dimer) 5.33 [facility]DbojqsbMNXZZSXCUZ8327-42-00 11:17:00 Test Item Value Reference Range Interpretation Comments Hep Bs Ag (test code Negative *NA*(11/25/21 = Hep Bs Ag) 6:17 AM) [facility]villeMeacydyXYWLALLTII2946-93-04 11:17:00 Test Item Value Reference Range Interpretation Comments C-REACTIVE PROTEIN (test code = 134.0 C-REACTIVE PROTEIN) [place] 820012-06-28 11:17:00 Test Item Value Reference Range Interpretation Comments Interleukin 6 (test code = Interleukin 25.99 6) [facility] [place]2022-06-28 11:17:00 Test Item Value Reference Range Interpretation Comments Vitamin B12 Lvl (test code = Vitamin 1508 B12 Lvl) [facility]2022-06-28 11:17:00 Test Item Value Reference Range Interpretation Comments Folate Lvl (test code = Folate Lvl) 22.3 [facility] [place]2022-06-28 11:17:00 Test Item Value Reference Range Interpretation Comments Ferritin Lvl (test code = Ferritin Lvl) 1423 90-275 [facility]2022-06-28 11:17:00 Test Item Value Reference Range Interpretation Comments Glucose Lvl (test code = Glucose Lvl) 205 70-99 [facility]2022-06-28 11:17:00 Test Item Value Reference Range Interpretation Comments BUN (test code = BUN) 60 7-22 [facility]2022-06-28 11:17:00 Test Item Value Reference Range Interpretation Comments Creatinine Lvl (test code = Creatinine 8.46 0.50-1.40 Lvl) [facility]2022-06-28 11:17:00 Test Item Value Reference Range Interpretation Comments Sodium Lvl (test code = Sodium Lvl) 131 135-145 [place] 510012-06-28 11:17:00 Test Item Value Reference Range Interpretation Comments Potassium Lvl (test code = Potassium 5.2 3.5-5.1 Lvl) [facility]2022-06-28 11:17:00 Test Item Value Reference Range Interpretation Comments Chloride Lvl (test code = Chloride Lvl) 93 95-109 [facility]2022-06-28 11:17:00 Test Item Value Reference Range Interpretation Comments CO2 (test code = CO2) 29 24-32 [facility]2022-06-28 11:17:00 Test Item Value Reference Range Interpretation Comments Calcium Lvl (test code = Calcium Lvl) 8.7 8.5-10.5 [facility]2022-06-28 11:17:00 Test Item Value Reference Range Interpretation Comments Total Protein (test code = Total 6.0 6.4-8.4 Protein) [facility]2022-06-28 11:17:00 Test Item Value Reference Range Interpretation Comments Albumin Lvl (test code = Albumin Lvl) 2.6 3.5-5.0 [facility]2022-06-28 11:17:00 Test Item Value Reference Range Interpretation Comments ALT (test code = ALT) 43 See_Comment [Auto mated message] The system which ge nerated this result transmit swathi reference range : <=65. The reference range was not used to interpr et this result as deny l/abnormal. [place] 510012-06-28 11:17:00 Test Item Value Reference Range Interpretation Comments AST (test code = AST) 35 See_Comment [Auto mated message] The system which ge nerated this result transmit swathi reference range : <=37. The reference range was not used to interpr et this result as deny l/abnormal. [place] 510012-06-28 11:17:00 Test Item Value Reference Range Interpretation Comments Alk Phos (test code = Alk Phos) 385 39-136 [place] 510012-06-28 11:17:00 Test Item Value Reference Range Interpretation Comments Bili Total (test code = Bili Total) 1.2 0.2-1.3 [place] 510012-06-28 11:17:00 Test Item Value Reference Range Interpretation Comments AGAP (test code = AGAP) 14.2 10.0-20.0 [place] 510012-06-28 11:17:00 Test Item Value Reference Range Interpretation Comments B/C Ratio (test code = B/C Ratio) 7 1 6-25 [place] 510012-06-28 11:17:00 Test Item Value Reference Range Interpretation Comments Globulin (test code = Globulin) 3.4 2.7-4.2 [place] 510012-06-28 11:17:00 Test Item Value Reference Range Interpretation Comments A/G Ratio (test code = A/G Ratio) 0.8 1 0.7-1.6 [place] 510012-06-28 11:17:00 Test Item Value Reference Range Interpretation Comments eGFR (test code = eGFR) 6 [place] 510012-06-28 11:17:00 Test Item Value Reference Range Interpretation Comments Magnesium Lvl (test code = Magnesium 1.9 1.8-2.4 Lvl) [place] 510012-06-28 11:17:00 Test Item Value Reference Range Interpretation Comments LDH (test code = LDH) 297 98-192 [place] 510012-06-28 11:17:00 Test Item Value Reference Range Interpretation Comments Procalcitonin Lvl (test 0.63 See_Comment [Au tomated message] code = Procalcitonin Lvl) Th e system which generated this result transmitted ref erence range: <=0.10. The reference range was not used to interpr et this result as normal/abnormal . [facility] CenterMnxkqeuHAWCEXTPVB3246-32-45 11:17:00 Test Item Value Reference Range Interpretation Comments D-Dimer (test code = D-Dimer) 5.33 [facility] KingwoodSemunnwOSOPBUVFKO6336-30-98 11:17:00 Test Item Value Reference Range Interpretation Comments Hep Bs Ag (test code Negative *NA*(11/25/21 = Hep Bs Ag) 6:17 AM) [facility]villeQrszuscPLIKATDGRJ6201-74-75 11:17:00 Test Item Value Reference Range Interpretation Comments C-REACTIVE PROTEIN (test code = 134.0 C-REACTIVE PROTEIN) [facility] StephenvilleUvbyigsLOIFHOHILA0890-83-49 11:17:00 Test Item Value Reference Range Interpretation Comments Interleukin 6 (test code = Interleukin 25.99 6) [facility]2022-06-28 11:17:00 Test Item Value Reference Range Interpretation Comments Vitamin B12 Lvl (test code = Vitamin 1508 B12 Lvl) [facility]2022-06-28 11:17:00 Test Item Value Reference Range Interpretation Comments Folate Lvl (test code = Folate Lvl) 22.3 [facility]2022-06-28 11:17:00 Test Item Value Reference Range Interpretation Comments Ferritin Lvl (test code = Ferritin Lvl) 1423 22-275 [facility]2022-06-28 11:17:00 Test Item Value Reference Range Interpretation Comments Glucose Lvl (test code = Glucose Lvl) 205 70-99 [facility]2022-06-28 11:17:00 Test Item Value Reference Range Interpretation Comments BUN (test code = BUN) 60 7-22 [facility]2022-06-28 11:17:00 Test Item Value Reference Range Interpretation Comments Creatinine Lvl (test code = Creatinine 8.46 0.50-1.40 Lvl) [facility]2022-06-28 11:17:00 Test Item Value Reference Range Interpretation Comments Sodium Lvl (test code = Sodium Lvl) 131 135-145 [facility]2022-06-28 11:17:00 Test Item Value Reference Range Interpretation Comments Potassium Lvl (test code = Potassium 5.2 3.5-5.1 Lvl) [facility] CenterProspectWiseCAROLIN[facility] K[facility] [id number] 11:17:00 Test Item Value Reference Range Interpretation Comments Chloride Lvl (test code = Chloride Lvl) 93 95-109 [place] 510012-06-28 11:17:00 Test Item Value Reference Range Interpretation Comments CO2 (test code = CO2) 29 24-32 [place] 510012-06-28 11:17:00 Test Item Value Reference Range Interpretation Comments Calcium Lvl (test code = Calcium Lvl) 8.7 8.5-10.5 [facility] CenterProspectWiseDANI[place] [id number] 11:17:00 Test Item Value Reference Range Interpretation Comments Total Protein (test code = Total 6.0 6.4-8.4 Protein) [facility]2022-06-28 11:17:00 Test Item Value Reference Range Interpretation Comments Albumin Lvl (test code = Albumin Lvl) 2.6 3.5-5.0 [facility] KingwoodHealthSmart Holdings [id number] 11:17:00 Test Item Value Reference Range Interpretation Comments ALT (test code = ALT) 43 See_Comment [Auto mated message] The system which ge nerated this result transmit swathi reference range : <=65. The reference range was not used to interpr et this result as deny l/abnormal. [facility] CenterAnovaStorm [id number] 11:17:00 Test Item Value Reference Range Interpretation Comments AST (test code = AST) 35 See_Comment [Auto mated message] The system which ge nerated this result transmit swathi reference range : <=37. The reference range was not used to interpr et this result as deny l/abnormal. [facility] CenterAnovaStorm [id number] 11:17:00 Test Item Value Reference Range Interpretation Comments Alk Phos (test code = Alk Phos) 385 39-136 [facility]2022-06-28 11:17:00 Test Item Value Reference Range Interpretation Comments Bili Total (test code = Bili Total) 1.2 0.2-1.3 [place] 510012-06-28 11:17:00 Test Item Value Reference Range Interpretation Comments AGAP (test code = AGAP) 14.2 10.0-20.0 [facility]2022-06-28 11:17:00 Test Item Value Reference Range Interpretation Comments B/C Ratio (test code = B/C Ratio) 7 1 6-25 [facility]2022-06-28 11:17:00 Test Item Value Reference Range Interpretation Comments Globulin (test code = Globulin) 3.4 2.7-4.2 [facility]2022-06-28 11:17:00 Test Item Value Reference Range Interpretation Comments A/G Ratio (test code = A/G Ratio) 0.8 1 0.7-1.6 [facility]2022-06-28 11:17:00 Test Item Value Reference Range Interpretation Comments eGFR (test code = eGFR) 6 [facility]2022-06-28 11:17:00 Test Item Value Reference Range Interpretation Comments Magnesium Lvl (test code = Magnesium 1.9 1.8-2.4 Lvl) [facility]2022-06-28 11:17:00 Test Item Value Reference Range Interpretation Comments LDH (test code = LDH) 297 98-192 [facility]2022-06-28 11:17:00 Test Item Value Reference Range Interpretation Comments Procalcitonin Lvl (test 0.63 See_Comment [Au tomated message] code = Procalcitonin Lvl) Th e system which generated this result transmitted ref erence range: <=0.10. The reference range was not used to interpr et this result as normal/abnormal . [facility] CenterLupocxiGHPVYMGPTG5095-64-07 11:17:00 Test Item Value Reference Range Interpretation Comments D-Dimer (test code = D-Dimer) 5.33 [facility] KingwoodGhuvbdqYYPMMQAPEB7490-11-14 11:17:00 Test Item Value Reference Range Interpretation Comments Hep Bs Ag (test code Negative *NA*(11/25/21 = Hep Bs Ag) 6:17 AM) [facility] StephenvilleQhynsboJVJCAQSKLI5589-69-79 11:17:00 Test Item Value Reference Range Interpretation Comments C-REACTIVE PROTEIN (test code = 134.0 C-REACTIVE PROTEIN) [facility] StephenvilleSeebwouYJYGFDMMBR5263-52-43 11:17:00 Test Item Value Reference Range Interpretation Comments Interleukin 6 (test code = Interleukin 25.99 6) [facility]2022-06-28 11:17:00 Test Item Value Reference Range Interpretation Comments Vitamin B12 Lvl (test code = Vitamin 1508 B12 Lvl) [facility]2022-06-28 11:17:00 Test Item Value Reference Range Interpretation Comments Folate Lvl (test code = Folate Lvl) 22.3 [facility]2022-06-28 11:17:00 Test Item Value Reference Range Interpretation Comments Ferritin Lvl (test code = Ferritin Lvl) 1423 22-275 [facility]2022-06-28 11:17:00 Test Item Value Reference Range Interpretation Comments Glucose Lvl (test code = Glucose Lvl) 205 70-99 [place] 510012-06-28 11:17:00 Test Item Value Reference Range Interpretation Comments BUN (test code = BUN) 60 7-22 [facility]2022-06-28 11:17:00 Test Item Value Reference Range Interpretation Comments Creatinine Lvl (test code = Creatinine 8.46 0.50-1.40 Lvl) [facility]2022-06-28 11:17:00 Test Item Value Reference Range Interpretation Comments Sodium Lvl (test code = Sodium Lvl) 131 135-145 [place] 510012-06-28 11:17:00 Test Item Value Reference Range Interpretation Comments Potassium Lvl (test code = Potassium 5.2 3.5-5.1 Lvl) [facility]2022-06-28 11:17:00 Test Item Value Reference Range Interpretation Comments Chloride Lvl (test code = Chloride Lvl) 93 95-109 [facility]2022-06-28 11:17:00 Test Item Value Reference Range Interpretation Comments CO2 (test code = CO2) 29 24-32 [place] 510012-06-28 11:17:00 Test Item Value Reference Range Interpretation Comments Calcium Lvl (test code = Calcium Lvl) 8.7 8.5-10.5 [place] 510012-06-28 11:17:00 Test Item Value Reference Range Interpretation Comments Total Protein (test code = Total 6.0 6.4-8.4 Protein) [place] 510012-06-28 11:17:00 Test Item Value Reference Range Interpretation Comments Albumin Lvl (test code = Albumin Lvl) 2.6 3.5-5.0 [facility] CenterannCHEM [id number] 11:17:00 Test Item Value Reference Range Interpretation Comments ALT (test code = ALT) 43 See_Comment [Auto mated message] The system which ge nerated this result transmit swathi reference range : <=65. The reference range was not used to interpr et this result as deny l/abnormal. [facility] [employer] [id number] 11:17:00 Test Item Value Reference Range Interpretation Comments AST (test code = AST) 35 See_Comment [Auto mated message] The system which ge nerated this result transmit swathi reference range : <=37. The reference range was not used to interpr et this result as deny l/abnormal. [facility]2022-06-28 11:17:00 Test Item Value Reference Range Interpretation Comments Alk Phos (test code = Alk Phos) 385 39-136 [facility] [employer] [id number] 11:17:00 Test Item Value Reference Range Interpretation Comments Bili Total (test code = Bili Total) 1.2 0.2-1.3 [facility] [employer] [id number] 11:17:00 Test Item Value Reference Range Interpretation Comments AGAP (test code = AGAP) 14.2 10.0-20.0 [facility] [employer] [id number] 11:17:00 Test Item Value Reference Range Interpretation Comments B/C Ratio (test code = B/C Ratio) 7 1 6-25 [facility] [employer] [id number] 11:17:00 Test Item Value Reference Range Interpretation Comments Globulin (test code = Globulin) 3.4 2.7-4.2 [facility]2022-06-28 11:17:00 Test Item Value Reference Range Interpretation Comments A/G Ratio (test code = A/G Ratio) 0.8 1 0.7-1.6 [facility] [employer] [id number] 11:17:00 Test Item Value Reference Range Interpretation Comments eGFR (test code = eGFR) 6 [facility] [employer] [id number] 11:17:00 Test Item Value Reference Range Interpretation Comments Magnesium Lvl (test code = Magnesium 1.9 1.8-2.4 Lvl) [facility] [employer] [id number] 11:17:00 Test Item Value Reference Range Interpretation Comments LDH (test code = LDH) 297 98-192 [facility] KingwoodCHEM [id number] 11:17:00 Test Item Value Reference Range Interpretation Comments Procalcitonin Lvl (test 0.63 See_Comment [Au tomated message] code = Procalcitonin Lvl) Th e system which generated this result transmitted ref erence range: <=0.10. The reference range was not used to interpr et this result as normal/abnormal . [facility] KingwoodZugxnsvWWXWBPBZTC3313-57-19 11:17:00 Test Item Value Reference Range Interpretation Comments D-Dimer (test code = D-Dimer) 5.33 [facility] KingwoodRrswcjhRPFQRYZSWP6754-00-06 11:17:00 Test Item Value Reference Range Interpretation Comments Hep Bs Ag (test code Negative *NA*(11/25/21 = Hep Bs Ag) 6:17 AM) [facility]SwnqbnqCZUCYTRSQD5685-21-43 11:17:00 Test Item Value Reference Range Interpretation Comments C-REACTIVE PROTEIN (test code = 134.0 C-REACTIVE PROTEIN) [facility]TwypdfbJLEOCLYVCK9894-06-24 11:17:00 Test Item Value Reference Range Interpretation Comments Interleukin 6 (test code = Interleukin 25.99 6) [facility] [id number] 05:52:00 Test Item Value Reference Range Interpretation Comments RBC product (test code Product available = RBC product) 4(11/25/21 12:52 AM) [facility] [id number] 05:52:00 Test Item Value Reference Range Interpretation Comments RBC product (test code Product available = RBC product) 4(11/25/21 12:52 AM) [facility] [id number] 05:52:00 Test Item Value Reference Range Interpretation Comments RBC product (test code Product available = RBC product) 4(11/25/21 12:52 AM) [facility] BANK [id number] 05:52:00 Test Item Value Reference Range Interpretation Comments RBC product (test code Product available = RBC product) 4(11/25/21 12:52 AM) [facility] [id number] 05:52:00 Test Item Value Reference Range Interpretation Comments RBC product (test code Product available = RBC product) 4(11/25/21 12:52 AM) [facility] [id number] 05:52:00 Test Item Value Reference Range Interpretation Comments RBC product (test code Product available = RBC product) 4(11/25/21 12:52 AM) [facility] BANK [id number] 05:52:00 Test Item Value Reference Range Interpretation Comments RBC product (test code Product available = RBC product) 4(11/25/21 12:52 AM) [facility]villeFxibpafZYAPAOIIOZ8078-26-23 05:43:00 Test Item Value Reference Range Interpretation Comments Coronavirus (COVID-19) Detected MANUEL (test code = 8*ABN*(11/25/21 12:43 Coronavirus (COVID-19) AM) MANUEL) [facility]villeCehlokdTMWMWXYKAE6082-60-43 05:43:00 Test Item Value Reference Range Interpretation Comments Coronavirus (COVID-19) Detected MANUEL (test code = 8*ABN*(11/25/21 12:43 Coronavirus (COVID-19) AM) MANUEL) [facility]villeCnsdpunHJGKAKRPSU8557-15-16 05:43:00 Test Item Value Reference Range Interpretation Comments Coronavirus (COVID-19) Detected MANUEL (test code = 8*ABN*(11/25/21 12:43 Coronavirus (COVID-19) AM) MANUEL) [facility]villeEuexjxdWWEFQWMXBJ6954-03-13 05:43:00 Test Item Value Reference Range Interpretation Comments Coronavirus (COVID-19) Detected MANUEL (test code = 8*ABN*(11/25/21 12:43 Coronavirus (COVID-19) AM) MANUEL) [facility]villeImybgvaOWWZAXLWPC1694-56-36 05:43:00 Test Item Value Reference Range Interpretation Comments Coronavirus (COVID-19) Detected MANUEL (test code = 8*ABN*(11/25/21 12:43 Coronavirus (COVID-19) AM) MANUEL) [facility]villeTonwtwwEHBXTDIHWC2689-54-23 05:43:00 Test Item Value Reference Range Interpretation Comments Coronavirus (COVID-19) Detected MANUEL (test code = 8*ABN*(11/25/21 12:43 Coronavirus (COVID-19) AM) MANUEL) [facility] StephenvilleWcovvasDLALEYMPCY6759-42-05 05:43:00 Test Item Value Reference Range Interpretation Comments Coronavirus (COVID-19) Detected MANUEL (test code = 8*ABN*(11/25/21 12:43 Coronavirus (COVID-19) AM) MANUEL) [facility] AND [id number] 05:23:00 Test Item Value Reference Range Interpretation Comments Occult Bld Stl (test Negative (11/25/21 12:23 code = Occult Bld Stl) AM) [facility] AND [id number] 05:23:00 Test Item Value Reference Range Interpretation Comments Occult Bld Stl (test Negative (11/25/21 12:23 code = Occult Bld Stl) AM) [facility] AND [id number] 05:23:00 Test Item Value Reference Range Interpretation Comments Occult Bld Stl (test Negative (11/25/21 12:23 code = Occult Bld Stl) AM) [facility] AND [id number] 05:23:00 Test Item Value Reference Range Interpretation Comments Occult Bld Stl (test Negative (11/25/21 12:23 code = Occult Bld Stl) AM) [facility] AND [id number] 05:23:00 Test Item Value Reference Range Interpretation Comments Occult Bld Stl (test Negative (11/25/21 12:23 code = Occult Bld Stl) AM) [facility] AND [id number] 05:23:00 Test Item Value Reference Range Interpretation Comments Occult Bld Stl (test Negative (11/25/21 12:23 code = Occult Bld Stl) AM) [facility] AND [id number] 05:23:00 Test Item Value Reference Range Interpretation Comments Occult Bld Stl (test Negative (11/25/21 12:23 code = Occult Bld Stl) AM) [facility] [id number] 04:12:00 Test Item Value Reference Range Interpretation Comments ABO/Rh (test code = ABO/Rh) AB POS [facility] [id number] 04:12:00 Test Item Value Reference Range Interpretation Comments Antibody Scrn (test Negative (11/24/21 code = Antibody Scrn) 11:12 PM) [facility] [id number] 04:12:00 Test Item Value Reference Range Interpretation Comments Total CK (test code = Total CK) 86 12-191 [facility]CARD[facility] [id number] 04:12:00 Test Item Value Reference Range Interpretation Comments HS Troponin I (test code = HS Troponin 316 I) [facility] [id number] 04:12:00 Test Item Value Reference Range Interpretation Comments Glucose Lvl (test code = Glucose Lvl) 261 70-99 [facility]2022-06-28 04:12:00 Test Item Value Reference Range Interpretation Comments BUN (test code = BUN) 60 7-22 [facility] [place]2022-06-28 04:12:00 Test Item Value Reference Range Interpretation Comments Creatinine Lvl (test code = Creatinine 8.49 0.50-1.40 Lvl) [facility] [place]2022-06-28 04:12:00 Test Item Value Reference Range Interpretation Comments Sodium Lvl (test code = Sodium Lvl) 133 135-145 [facility] [place]2022-06-28 04:12:00 Test Item Value Reference Range Interpretation Comments Potassium Lvl (test code = Potassium 4.9 3.5-5.1 Lvl) [facility]2022-06-28 04:12:00 Test Item Value Reference Range Interpretation Comments Chloride Lvl (test code = Chloride Lvl) 93 95-109 [facility] [place]2022-06-28 04:12:00 Test Item Value Reference Range Interpretation Comments CO2 (test code = CO2) 31 24-32 [facility] [place]2022-06-28 04:12:00 Test Item Value Reference Range Interpretation Comments Calcium Lvl (test code = Calcium Lvl) 9.1 8.5-10.5 [facility] [place]2022-06-28 04:12:00 Test Item Value Reference Range Interpretation Comments Total Protein (test code = Total 6.8 6.4-8.4 Protein) [facility]2022-06-28 04:12:00 Test Item Value Reference Range Interpretation Comments Albumin Lvl (test code = Albumin Lvl) 2.5 3.5-5.0 [facility]2022-06-28 04:12:00 Test Item Value Reference Range Interpretation Comments ALT (test code = ALT) 51 See_Comment [Auto mated message] The system which ge nerated this result transmit swathi reference range : <=65. The reference range was not used to interpr et this result as deny l/abnormal. [place] 510012-06-28 04:12:00 Test Item Value Reference Range Interpretation Comments AST (test code = AST) 36 See_Comment [Auto mated message] The system which ge nerated this result transmit swathi reference range : <=37. The reference range was not used to interpr et this result as deny l/abnormal. [place] 510012-06-28 04:12:00 Test Item Value Reference Range Interpretation Comments Alk Phos (test code = Alk Phos) 383 39-136 [place] 510012-06-28 04:12:00 Test Item Value Reference Range Interpretation Comments Bili Total (test code = Bili Total) 1.1 0.2-1.3 [place] [address]-06-28 04:12:00 Test Item Value Reference Range Interpretation Comments AGAP (test code = AGAP) 13.9 10.0-20.0 [place] 510012-06-28 04:12:00 Test Item Value Reference Range Interpretation Comments B/C Ratio (test code = B/C Ratio) 7 1 6-25 [place] 510012-06-28 04:12:00 Test Item Value Reference Range Interpretation Comments Globulin (test code = Globulin) 4.3 2.7-4.2 [place] 510012-06-28 04:12:00 Test Item Value Reference Range Interpretation Comments A/G Ratio (test code = A/G Ratio) 0.6 1 0.7-1.6 [place] 510012-06-28 04:12:00 Test Item Value Reference Range Interpretation Comments eGFR (test code = eGFR) 5 [place] 510012-06-28 04:12:00 Test Item Value Reference Range Interpretation Comments Procalcitonin Lvl (test 0.69 See_Comment [Au tomated message] code = Procalcitonin Lvl) Th e system which generated this result transmitted ref erence range: <=0.10. The reference range was not used to interpr et this result as normal/abnormal . [facility] [id number] 04:12:00 Test Item Value Reference Range Interpretation Comments WBC (test code = WBC) 4.1 3.7-10.4 [facility] CenterUqwprysBBMGFSYXHG4391-82-97 04:12:00 Test Item Value Reference Range Interpretation Comments RBC (test code = RBC) 1.78 4.70-6.10 [facility] CenterOrulvpqBATRLUCLKI9385-05-79 04:12:00 Test Item Value Reference Range Interpretation Comments Hgb (test code = Hgb) 6.5 14.0-18.0 [facility] CenterIzszyadIQYQGHBHIO9251-36-93 04:12:00 Test Item Value Reference Range Interpretation Comments Hct (test code = Hct) 19.5 42.0-54.0 [facility] CenterJeiamvtYOKLGZFJUP2676-90-50 04:12:00 Test Item Value Reference Range Interpretation Comments MCV (test code = MCV) 110.0 80.0-94.0 [facility] CenterAeppmukLNRGEEQWDY6526-64-13 04:12:00 Test Item Value Reference Range Interpretation Comments MCH (test code = MCH) 36.5 pg 27.0-31.0 [facility] CenterEwzwzkmKCJXJLWXVE8272-17-69 04:12:00 Test Item Value Reference Range Interpretation Comments MCHC (test code = MCHC) 33.2 32.0-36.0 [facility] CenterFrbwrocIVAKHMWTNB4620-89-91 04:12:00 Test Item Value Reference Range Interpretation Comments RDW (test code = RDW) 19.0 11.5-14.5 [facility] CenterVlwczqtVXBAOVTZYZ3640-97-62 04:12:00 Test Item Value Reference Range Interpretation Comments Platelet (test code = Platelet) 180 133-450 [facility] CenterQgrvgpuBKOWISLRSM7245-09-13 04:12:00 Test Item Value Reference Range Interpretation Comments MPV (test code = MPV) 8.3 7.4-10.4 [facility] CenterLtxnyzsQWEULDWYGJ8175-16-08 04:12:00 Test Item Value Reference Range Interpretation Comments PTT (test code = PTT) 45.4 s 22.9-35.8 [facility] CenterCptbrrlHQSORPJSDB7759-23-98 04:12:00 Test Item Value Reference Range Interpretation Comments PT (test code = PT) 19.1 s 12.0-14.7 [facility] CenterIdglzjmLRGHCKAFIU3820-40-76 04:12:00 Test Item Value Reference Range Interpretation Comments INR (test code = INR) 1.62 1 0.85-1.17 [place] 526272-06-28 04:12:00 Test Item Value Reference Range Interpretation Comments RBC Morph (test code = See Note (11/24/21 RBC Morph) 11:12 PM) [facility] CenterToukppoAOGYSXPGZL0180-64-37 04:12:00 Test Item Value Reference Range Interpretation Comments Plt Morph (test code = Normal (11/24/21 11:12 Plt Morph) PM) [facility] CenterBfrbasnTBDEBPOCUD1478-69-64 04:12:00 Test Item Value Reference Range Interpretation Comments Segs (test code = Segs) 72.2 45.0-75.0 [place] 526272-06-28 04:12:00 Test Item Value Reference Range Interpretation Comments Lymphocytes (test code = Lymphocytes) 16.2 20.0-40.0 [place] 526272-06-28 04:12:00 Test Item Value Reference Range Interpretation Comments Monocytes (test code = Monocytes) 8.0 2.0-12.0 [facility] CenterLdeneglAZKMNNCKOW0895-18-30 04:12:00 Test Item Value Reference Range Interpretation Comments Eosinophils (test code = 2.7 See_Comment [A utomated message] The Eosinophils) system which ge nerated this result tra nsmitted reference range : <=4.0. The reference r samantha was not used to int erpret this result as normal/abnormal . [facility] CenterBnggcmjPRQEDDCZJY0966-14-33 04:12:00 Test Item Value Reference Range Interpretation Comments Basophils (test code = 0.9 See_Comment [Aut omated message] The Basophils) system which ge nerated this result tra nsmitted reference range : <=1.0. The reference r samantha was not used to int erpret this result as normal/abnormal . [facility] CenterUhjrlmpEFWTYECQRU7000-48-38 04:12:00 Test Item Value Reference Range Interpretation Comments Neutrophils # (test code = Neutrophils 2.9 1.5-8.1 #) [facility] CenterFlvqakuLCSIWVTGSD6918-72-88 04:12:00 Test Item Value Reference Range Interpretation Comments Lymphocytes # (test code = Lymphocytes 0.7 1.0-5.5 #) [facility] CenterFzupxekCFFTEXIBLK1265-95-34 04:12:00 Test Item Value Reference Range Interpretation Comments Monocytes # (test code 0.3 See_Comment [Aut omated message] The = Monocytes #) system which generated this result tra nsmitted reference range : <=0.8. The reference r samantha was not used to int erpret this result as normal/abnormal . [facility] CenterLhwztoqGGXHWNNBIJ3294-18-26 04:12:00 Test Item Value Reference Range Interpretation Comments Eosinophils # (test code 0.1 See_Comment [A utomated message] The = Eosinophils #) system whic h generated this result tra nsmitted reference range : <=0.5. The reference r samantha was not used to int erpret this result as normal/abnormal . [facility] CenterStztshyGXWBSVTIVK7594-69-44 04:12:00 Test Item Value Reference Range Interpretation Comments Anisocyte (test code = 1+ *ABN*(11/24/21 Anisocyte) 11:12 PM) [facility] CenterHdtiudyLMQVXWOVKM5314-56-92 04:12:00 Test Item Value Reference Range Interpretation Comments Macrocyte (test code = 1+ *ABN*(11/24/21 Macrocyte) 11:12 PM) [facility] CenterPjjlbamLBXDMFEVOO9690-15-60 04:12:00 Test Item Value Reference Range Interpretation Comments Microcyte (test code = 1+ *ABN*(11/24/21 Microcyte) 11:12 PM) [facility] [employer] [id number] 04:12:00 Test Item Value Reference Range Interpretation Comments ABO/Rh (test code = ABO/Rh) AB POS [facility] [employer] [id number] 04:12:00 Test Item Value Reference Range Interpretation Comments Antibody Scrn (test Negative (11/24/21 code = Antibody Scrn) 11:12 PM) [facility] [employer]2022-06-28 04:12:00 Test Item Value Reference Range Interpretation Comments Total CK (test code = Total CK) 86 12-191 [facility] CenterCityvox PXGCHVX3484-08-74 04:12:00 Test Item Value Reference Range Interpretation Comments HS Troponin I (test code = HS Troponin 316 I) [facility] [employer]2022-06-28 04:12:00 Test Item Value Reference Range Interpretation Comments Glucose Lvl (test code = Glucose Lvl) 261 70-99 [facility]2022-06-28 04:12:00 Test Item Value Reference Range Interpretation Comments BUN (test code = BUN) 60 7-22 [place] 510012-06-28 04:12:00 Test Item Value Reference Range Interpretation Comments Creatinine Lvl (test code = Creatinine 8.49 0.50-1.40 Lvl) [place] [address]-06-28 04:12:00 Test Item Value Reference Range Interpretation Comments Sodium Lvl (test code = Sodium Lvl) 133 135-145 [place] 510012-06-28 04:12:00 Test Item Value Reference Range Interpretation Comments Potassium Lvl (test code = Potassium 4.9 3.5-5.1 Lvl) [place] 510012-06-28 04:12:00 Test Item Value Reference Range Interpretation Comments Chloride Lvl (test code = Chloride Lvl) 93 95-109 [place] 510012-06-28 04:12:00 Test Item Value Reference Range Interpretation Comments CO2 (test code = CO2) 31 24-32 [place] 510012-06-28 04:12:00 Test Item Value Reference Range Interpretation Comments Calcium Lvl (test code = Calcium Lvl) 9.1 8.5-10.5 [place] 510012-06-28 04:12:00 Test Item Value Reference Range Interpretation Comments Total Protein (test code = Total 6.8 6.4-8.4 Protein) [place] 510012-06-28 04:12:00 Test Item Value Reference Range Interpretation Comments Albumin Lvl (test code = Albumin Lvl) 2.5 3.5-5.0 [place] 510012-06-28 04:12:00 Test Item Value Reference Range Interpretation Comments ALT (test code = ALT) 51 See_Comment [Auto mated message] The system which [employer] nerated this result transmit swathi reference range : <=65. The reference range was not used to interpr et this result as deny l/abnormal. [place] 510012-06-28 04:12:00 Test Item Value Reference Range Interpretation Comments AST (test code = AST) 36 See_Comment [Auto mated message] The system which ge nerated this result transmit swathi reference range : <=37. The reference range was not used to interpr et this result as deny l/abnormal. [place] 510012-06-28 04:12:00 Test Item Value Reference Range Interpretation Comments Alk Phos (test code = Alk Phos) 383 39-136 [place] 510012-06-28 04:12:00 Test Item Value Reference Range Interpretation Comments Bili Total (test code = Bili Total) 1.1 0.2-1.3 [place] 510012-06-28 04:12:00 Test Item Value Reference Range Interpretation Comments AGAP (test code = AGAP) 13.9 10.0-20.0 [place] 510012-06-28 04:12:00 Test Item Value Reference Range Interpretation Comments B/C Ratio (test code = B/C Ratio) 7 1 6-25 [place] 510012-06-28 04:12:00 Test Item Value Reference Range Interpretation Comments Globulin (test code = Globulin) 4.3 2.7-4.2 [place] 510012-06-28 04:12:00 Test Item Value Reference Range Interpretation Comments A/G Ratio (test code = A/G Ratio) 0.6 1 0.7-1.6 [place] 510012-06-28 04:12:00 Test Item Value Reference Range Interpretation Comments eGFR (test code = eGFR) 5 [place] 510012-06-28 04:12:00 Test Item Value Reference Range Interpretation Comments Procalcitonin Lvl (test 0.69 See_Comment [Au tomated message] code = Procalcitonin Lvl) Th e system which generated this result transmitted ref erence range: <=0.10. The reference range was not used to interpr et this result as normal/abnormal . [place] 526272-06-28 04:12:00 Test Item Value Reference Range Interpretation Comments WBC (test code = WBC) 4.1 3.7-10.4 [place] [address]-06-28 04:12:00 Test Item Value Reference Range Interpretation Comments RBC (test code = RBC) 1.78 4.70-6.10 [place] 526272-06-28 04:12:00 Test Item Value Reference Range Interpretation Comments Hgb (test code = Hgb) 6.5 14.0-18.0 [place] 526272-06-28 04:12:00 Test Item Value Reference Range Interpretation Comments Hct (test code = Hct) 19.5 42.0-54.0 [facility] CenterNsfsimsZESIDILPTV8662-47-48 04:12:00 Test Item Value Reference Range Interpretation Comments MCV (test code = MCV) 110.0 80.0-94.0 [facility] CenterVjagxohAWPNNKBCBR5988-75-26 04:12:00 Test Item Value Reference Range Interpretation Comments MCH (test code = MCH) 36.5 pg 27.0-31.0 [facility] CenterVgjwspfNOTXLELJDO7871-82-55 04:12:00 Test Item Value Reference Range Interpretation Comments MCHC (test code = MCHC) 33.2 32.0-36.0 [facility] CenterFegwovoMZVBFQWJWE8486-17-29 04:12:00 Test Item Value Reference Range Interpretation Comments RDW (test code = RDW) 19.0 11.5-14.5 [facility] CenterHtmkvwiATDHEOXNGF5577-14-36 04:12:00 Test Item Value Reference Range Interpretation Comments Platelet (test code = Platelet) 180 133-450 [facility] CenterHywnclsTMBUEJBAFV2134-38-83 04:12:00 Test Item Value Reference Range Interpretation Comments MPV (test code = MPV) 8.3 7.4-10.4 [facility] CenterRnbpqumNWMDSORPAY5547-32-79 04:12:00 Test Item Value Reference Range Interpretation Comments PTT (test code = PTT) 45.4 s 22.9-35.8 [facility] CenterPpreibwWZDORAZAYD1307-51-47 04:12:00 Test Item Value Reference Range Interpretation Comments PT (test code = PT) 19.1 s 12.0-14.7 [facility] CenterMdepjoqXHDVANUBGA6602-35-07 04:12:00 Test Item Value Reference Range Interpretation Comments INR (test code = INR) 1.62 1 0.85-1.17 [facility] CenterRpjuercMUENNXFHOM5749-10-29 04:12:00 Test Item Value Reference Range Interpretation Comments RBC Morph (test code = See Note (11/24/21 RBC Morph) 11:12 PM) [facility] CenterFrdiipwPSILSOJPZF1371-06-13 04:12:00 Test Item Value Reference Range Interpretation Comments Plt Morph (test code = Normal (11/24/21 11:12 Plt Morph) PM) [facility] CenterBndaajbVFYRMZQTRR8156-71-70 04:12:00 Test Item Value Reference Range Interpretation Comments Segs (test code = Segs) 72.2 45.0-75.0 [facility] CenterBgdinygBXBSJGOXRD9878-30-25 04:12:00 Test Item Value Reference Range Interpretation Comments Lymphocytes (test code = Lymphocytes) 16.2 20.0-40.0 [facility] CenterBmebffjWAWSJHMNOT2524-53-31 04:12:00 Test Item Value Reference Range Interpretation Comments Monocytes (test code = Monocytes) 8.0 2.0-12.0 [facility] CenterYppzgnsYQTEWPOZNX2840-59-05 04:12:00 Test Item Value Reference Range Interpretation Comments Eosinophils (test code = 2.7 See_Comment [A utomated message] The Eosinophils) system which ge nerated this result tra nsmitted reference range : <=4.0. The reference r samantha was not used to int erpret this result as normal/abnormal . [facility] CenterExzbeunLJANDCWGSB5346-03-82 04:12:00 Test Item Value Reference Range Interpretation Comments Basophils (test code = 0.9 See_Comment [Aut omated message] The Basophils) system which ge nerated this result tra nsmitted reference range : <=1.0. The reference r samantha was not used to int erpret this result as normal/abnormal . [facility] CenterLteqouiCNKLBQOLHI1992-14-47 04:12:00 Test Item Value Reference Range Interpretation Comments Neutrophils # (test code = Neutrophils 2.9 1.5-8.1 #) [facility] CenterYvvmeskHEPLKOEMWC9109-18-46 04:12:00 Test Item Value Reference Range Interpretation Comments Lymphocytes # (test code = Lymphocytes 0.7 1.0-5.5 #) [facility] CenterCjtefieLYEXECSXCG4576-37-44 04:12:00 Test Item Value Reference Range Interpretation Comments Monocytes # (test code 0.3 See_Comment [Aut omated message] The = Monocytes #) system which generated this result tra nsmitted reference range : <=0.8. The reference r samantha was not used to int erpret this result as normal/abnormal . [facility] CenterZhvqyqzWQZKCSKOQE2687-07-57 04:12:00 Test Item Value Reference Range Interpretation Comments Eosinophils # (test code 0.1 See_Comment [A utomated message] The = Eosinophils #) system whic h generated this result tra nsmitted reference range : <=0.5. The reference r samantha was not used to int erpret this result as normal/abnormal . [place] 526272-06-28 04:12:00 Test Item Value Reference Range Interpretation Comments Anisocyte (test code = 1+ *ABN*(11/24/21 Anisocyte) 11:12 PM) [facility] CenterPvvfyyaVUEBXBXAPJ3563-10-13 04:12:00 Test Item Value Reference Range Interpretation Comments Macrocyte (test code = 1+ *ABN*(11/24/21 Macrocyte) 11:12 PM) [facility] CenterFfunzctLUOBWJJNMA8864-25-32 04:12:00 Test Item Value Reference Range Interpretation Comments Microcyte (test code = 1+ *ABN*(11/24/21 Microcyte) 11:12 PM) [facility] [employer] EYUADLN5962-88-84 04:12:00 Test Item Value Reference Range Interpretation Comments ABO/Rh (test code = ABO/Rh) AB POS [facility] [employer] [employer] [id number] 04:12:00 Test Item Value Reference Range Interpretation Comments Antibody Scrn (test Negative (11/24/21 code = Antibody Scrn) 11:12 PM) [facility] [employer] [id number] 04:12:00 Test Item Value Reference Range Interpretation Comments Total CK (test code = Total CK) 86 12-191 [facility] [employer]2022-06-28 04:12:00 Test Item Value Reference Range Interpretation Comments HS Troponin I (test code = HS Troponin 316 I) [facility] [employer] [id number] 04:12:00 Test Item Value Reference Range Interpretation Comments Glucose Lvl (test code = Glucose Lvl) 261 70-99 [facility] [employer]2022-06-28 04:12:00 Test Item Value Reference Range Interpretation Comments BUN (test code = BUN) 60 7-22 [facility] Year Up2022-06-28 04:12:00 Test Item Value Reference Range Interpretation Comments Creatinine Lvl (test code = Creatinine 8.49 0.50-1.40 Lvl) [employer]2022-06-28 04:12:00 Test Item Value Reference Range Interpretation Comments Sodium Lvl (test code = Sodium Lvl) 133 135-145 [facility] Year Up2022-06-28 04:12:00 Test Item Value Reference Range Interpretation Comments Potassium Lvl (test code = Potassium 4.9 3.5-5.1 Lvl) [place] 510012-06-28 04:12:00 Test Item Value Reference Range Interpretation Comments Chloride Lvl (test code = Chloride Lvl) 93 95-109 [place] 510012-06-28 04:12:00 Test Item Value Reference Range Interpretation Comments CO2 (test code = CO2) 31 24-32 [place] 510012-06-28 04:12:00 Test Item Value Reference Range Interpretation Comments Calcium Lvl (test code = Calcium Lvl) 9.1 8.5-10.5 [place] 510012-06-28 04:12:00 Test Item Value Reference Range Interpretation Comments Total Protein (test code = Total 6.8 6.4-8.4 Protein) [place] 510012-06-28 04:12:00 Test Item Value Reference Range Interpretation Comments Albumin Lvl (test code = Albumin Lvl) 2.5 3.5-5.0 [place] 510012-06-28 04:12:00 Test Item Value Reference Range Interpretation Comments ALT (test code = ALT) 51 See_Comment [Auto mated message] The system which ge nerated this result transmit swathi reference range : <=65. The reference range was not used to interpr et this result as deny l/abnormal. [facility] [id number] 04:12:00 Test Item Value Reference Range Interpretation Comments AST (test code = AST) 36 See_Comment [Auto mated message] The system which ge nerated this result transmit swathi reference range : <=37. The reference range was not used to interpr et this result as deny l/abnormal. [place] 510012-06-28 04:12:00 Test Item Value Reference Range Interpretation Comments Alk Phos (test code = Alk Phos) 383 39-136 [place] 510012-06-28 04:12:00 Test Item Value Reference Range Interpretation Comments Bili Total (test code = Bili Total) 1.1 0.2-1.3 [place] 510012-06-28 04:12:00 Test Item Value Reference Range Interpretation Comments AGAP (test code = AGAP) 13.9 10.0-20.0 [facility] [id number] 04:12:00 Test Item Value Reference Range Interpretation Comments B/C Ratio (test code = B/C Ratio) 7 1 6-25 [place] 510012-06-28 04:12:00 Test Item Value Reference Range Interpretation Comments Globulin (test code = Globulin) 4.3 2.7-4.2 [place] 510012-06-28 04:12:00 Test Item Value Reference Range Interpretation Comments A/G Ratio (test code = A/G Ratio) 0.6 1 0.7-1.6 [place] 510012-06-28 04:12:00 Test Item Value Reference Range Interpretation Comments eGFR (test code = eGFR) 5 [place] 510012-06-28 04:12:00 Test Item Value Reference Range Interpretation Comments Procalcitonin Lvl (test 0.69 See_Comment [Au tomated message] code = Procalcitonin Lvl) e system which generated this result transmitted ref erence range: <=0.10. The reference range was not used to interpr et this result as normal/abnormal . [place] 526272-06-28 04:12:00 Test Item Value Reference Range Interpretation Comments WBC (test code = WBC) 4.1 3.7-10.4 [place] [address]-06-28 04:12:00 Test Item Value Reference Range Interpretation Comments RBC (test code = RBC) 1.78 4.70-6.10 [place] [address]-06-28 04:12:00 Test Item Value Reference Range Interpretation Comments Hgb (test code = Hgb) 6.5 14.0-18.0 [place] [address]-06-28 04:12:00 Test Item Value Reference Range Interpretation Comments Hct (test code = Hct) 19.5 42.0-54.0 [place] [address]-06-28 04:12:00 Test Item Value Reference Range Interpretation Comments MCV (test code = MCV) 110.0 80.0-94.0 [place] 526272-06-28 04:12:00 Test Item Value Reference Range Interpretation Comments MCH (test code = MCH) 36.5 pg 27.0-31.0 [place] 526272-06-28 04:12:00 Test Item Value Reference Range Interpretation Comments MCHC (test code = MCHC) 33.2 32.0-36.0 [facility] CenterQefhbjqSLURXZEZFU7994-06-90 04:12:00 Test Item Value Reference Range Interpretation Comments RDW (test code = RDW) 19.0 11.5-14.5 [facility] CenterLcmeineAUBFEGEWJK2090-78-68 04:12:00 Test Item Value Reference Range Interpretation Comments Platelet (test code = Platelet) 180 133-450 [facility] CenterPpwhmjoNUGIXXIGET3210-60-56 04:12:00 Test Item Value Reference Range Interpretation Comments MPV (test code = MPV) 8.3 7.4-10.4 [facility] CenterDtxloxyMHOJKPEYYO3825-78-65 04:12:00 Test Item Value Reference Range Interpretation Comments PTT (test code = PTT) 45.4 s 22.9-35.8 [facility] CenterLmbnbuwSMPIOEWTAV7797-08-14 04:12:00 Test Item Value Reference Range Interpretation Comments PT (test code = PT) 19.1 s 12.0-14.7 [facility] CenterVztqymyFRDKOEWGAM7206-08-42 04:12:00 Test Item Value Reference Range Interpretation Comments INR (test code = INR) 1.62 1 0.85-1.17 [facility] CenterEtllxozDNGUYLKIUN1517-16-68 04:12:00 Test Item Value Reference Range Interpretation Comments RBC Morph (test code = See Note (11/24/21 RBC Morph) 11:12 PM) [facility] CenterCeipuuhQAZIOABXEC9596-98-09 04:12:00 Test Item Value Reference Range Interpretation Comments Plt Morph (test code = Normal (11/24/21 11:12 Plt Morph) PM) [facility] CenterXwowuzcENQEETLBSI1776-45-38 04:12:00 Test Item Value Reference Range Interpretation Comments Segs (test code = Segs) 72.2 45.0-75.0 [facility] CenterYbxkvuiHTZZYRFAXH0906-79-38 04:12:00 Test Item Value Reference Range Interpretation Comments Lymphocytes (test code = Lymphocytes) 16.2 20.0-40.0 [facility] CenterIijtmjlEEVFQIHYPR9265-36-75 04:12:00 Test Item Value Reference Range Interpretation Comments Monocytes (test code = Monocytes) 8.0 2.0-12.0 [place] 526272-06-28 04:12:00 Test Item Value Reference Range Interpretation Comments Eosinophils (test code = 2.7 See_Comment [A utomated message] The Eosinophils) system which ge nerated this result tra nsmitted reference range : <=4.0. The reference r samantha was not used to int erpret this result as normal/abnormal . [place] 526272-06-28 04:12:00 Test Item Value Reference Range Interpretation Comments Basophils (test code = 0.9 See_Comment [Aut omated message] The Basophils) system which ge nerated this result tra nsmitted reference range : <=1.0. The reference r samantha was not used to int erpret this result as normal/abnormal . [facility] CenterEtqblzwMXNITAAEYY9560-95-72 04:12:00 Test Item Value Reference Range Interpretation Comments Neutrophils # (test code = Neutrophils 2.9 1.5-8.1 #) [place] 526272-06-28 04:12:00 Test Item Value Reference Range Interpretation Comments Lymphocytes # (test code = Lymphocytes 0.7 1.0-5.5 #) [place] 526272-06-28 04:12:00 Test Item Value Reference Range Interpretation Comments Monocytes # (test code 0.3 See_Comment [Aut omated message] The = Monocytes #) system which generated this result tra nsmitted reference range : <=0.8. The reference r samantha was not used to int erpret this result as normal/abnormal . [place] 526272-06-28 04:12:00 Test Item Value Reference Range Interpretation Comments Eosinophils # (test code 0.1 See_Comment [A utomated message] The = Eosinophils #) system whic h generated this result tra nsmitted reference range : <=0.5. The reference r samantha was not used to int erpret this result as normal/abnormal . [facility] CenterBjxrczxVKPRGLQIUM1571-64-19 04:12:00 Test Item Value Reference Range Interpretation Comments Anisocyte (test code = 1+ *ABN*(11/24/21 Anisocyte) 11:12 PM) [facility] CenterBeinmcsKYBNQXBFSL3265-35-56 04:12:00 Test Item Value Reference Range Interpretation Comments Macrocyte (test code = 1+ *ABN*(11/24/21 Macrocyte) 11:12 PM) [place] 526272-06-28 04:12:00 Test Item Value Reference Range Interpretation Comments Microcyte (test code = 1+ *ABN*(11/24/21 Microcyte) 11:12 PM) [facility] [employer] [id number] 04:12:00 Test Item Value Reference Range Interpretation Comments ABO/Rh (test code = ABO/Rh) AB POS [facility] [employer] [id number] 04:12:00 Test Item Value Reference Range Interpretation Comments Antibody Scrn (test Negative (11/24/21 code = Antibody Scrn) 11:12 PM) [facility] [employer] [id number] 04:12:00 Test Item Value Reference Range Interpretation Comments Total CK (test code = Total CK) 86 12-191 [facility] [employer] [id number] 04:12:00 Test Item Value Reference Range Interpretation Comments HS Troponin I (test code = HS Troponin 316 I) [facility] Year Up2022-06-28 04:12:00 Test Item Value Reference Range Interpretation Comments Glucose Lvl (test code = Glucose Lvl) 261 70-99 [facility] Year Up2022-06-28 04:12:00 Test Item Value Reference Range Interpretation Comments BUN (test code = BUN) 60 7-22 [facility] Year Up2022-06-28 04:12:00 Test Item Value Reference Range Interpretation Comments Creatinine Lvl (test code = Creatinine 8.49 0.50-1.40 Lvl) [employer]2022-06-28 04:12:00 Test Item Value Reference Range Interpretation Comments Sodium Lvl (test code = Sodium Lvl) 133 135-145 [facility] Year Up2022-06-28 04:12:00 Test Item Value Reference Range Interpretation Comments Potassium Lvl (test code = Potassium 4.9 3.5-5.1 Lvl) [employer]2022-06-28 04:12:00 Test Item Value Reference Range Interpretation Comments Chloride Lvl (test code = Chloride Lvl) 93 95-109 [facility] Year Up2022-06-28 04:12:00 Test Item Value Reference Range Interpretation Comments CO2 (test code = CO2) 31 24-32 [facility] Year Up2022-06-28 04:12:00 Test Item Value Reference Range Interpretation Comments Calcium Lvl (test code = Calcium Lvl) 9.1 8.5-10.5 [facility] Year Up2022-06-28 04:12:00 Test Item Value Reference Range Interpretation Comments Total Protein (test code = Total 6.8 6.4-8.4 Protein) [facility] [id number] 04:12:00 Test Item Value Reference Range Interpretation Comments Albumin Lvl (test code = Albumin Lvl) 2.5 3.5-5.0 [facility] CenterAn[facility] [id number] 04:12:00 Test Item Value Reference Range Interpretation Comments ALT (test code = ALT) 51 See_Comment [Auto mated message] The system which ge nerated this result transmit swathi reference range : <=65. The reference range was not used to interpr et this result as deny l/abnormal. [facility] CenterAn[facility] [id number] 04:12:00 Test Item Value Reference Range Interpretation Comments AST (test code = AST) 36 See_Comment [Auto mated message] The system which ge nerated this result transmit swathi reference range : <=37. The reference range was not used to interpr et this result as deny l/abnormal. [facility] Center[facility] [id number] 04:12:00 Test Item Value Reference Range Interpretation Comments Alk Phos (test code = Alk Phos) 383 39-136 [facility]An[facility] [id number] 04:12:00 Test Item Value Reference Range Interpretation Comments Bili Total (test code = Bili Total) 1.1 0.2-1.3 [facility] CenterAn[facility] [id number] 04:12:00 Test Item Value Reference Range Interpretation Comments AGAP (test code = AGAP) 13.9 10.0-20.0 [facility] CenterAn[facility] [id number] 04:12:00 Test Item Value Reference Range Interpretation Comments B/C Ratio (test code = B/C Ratio) 7 1 6-25 [facility] CenterAn[facility] [id number] 04:12:00 Test Item Value Reference Range Interpretation Comments Globulin (test code = Globulin) 4.3 2.7-4.2 [facility]An[facility] [id number] 04:12:00 Test Item Value Reference Range Interpretation Comments A/G Ratio (test code = A/G Ratio) 0.6 1 0.7-1.6 [facility] CenterAn[facility] [id number] 04:12:00 Test Item Value Reference Range Interpretation Comments eGFR (test code = eGFR) 5 [facility]2022-06-28 04:12:00 Test Item Value Reference Range Interpretation Comments Procalcitonin Lvl (test 0.69 See_Comment [Au tomated message] code = Procalcitonin Lvl) Th e system which generated this result transmitted ref erence range: <=0.10. The reference range was not used to interpr et this result as normal/abnormal . [facility] CenterVcjxpzlZDFDXUKVOU0532-03-86 04:12:00 Test Item Value Reference Range Interpretation Comments WBC (test code = WBC) 4.1 3.7-10.4 [facility] CenterEjsnrbwRIDCSBHJGV4388-56-42 04:12:00 Test Item Value Reference Range Interpretation Comments RBC (test code = RBC) 1.78 4.70-6.10 [facility] CenterFwlddvdGQVVGMDQMR8687-99-86 04:12:00 Test Item Value Reference Range Interpretation Comments Hgb (test code = Hgb) 6.5 14.0-18.0 [facility] CenterHcoxhxhNXQKFRZTMC9965-42-72 04:12:00 Test Item Value Reference Range Interpretation Comments Hct (test code = Hct) 19.5 42.0-54.0 [place] 526272-06-28 04:12:00 Test Item Value Reference Range Interpretation Comments MCV (test code = MCV) 110.0 80.0-94.0 [facility] CenterThewimjSWZYMXECQJ7396-56-07 04:12:00 Test Item Value Reference Range Interpretation Comments MCH (test code = MCH) 36.5 pg 27.0-31.0 [facility] CenterWzkjpssGGDLLAAFOR9573-65-49 04:12:00 Test Item Value Reference Range Interpretation Comments MCHC (test code = MCHC) 33.2 32.0-36.0 [place] 526272-06-28 04:12:00 Test Item Value Reference Range Interpretation Comments RDW (test code = RDW) 19.0 11.5-14.5 [facility] CenterJxgoortDRFCQTLTLF3036-52-81 04:12:00 Test Item Value Reference Range Interpretation Comments Platelet (test code = Platelet) 180 133-450 [facility] CenterEcwtbjrCEABFGYJJJ5687-47-82 04:12:00 Test Item Value Reference Range Interpretation Comments MPV (test code = MPV) 8.3 7.4-10.4 [facility] CenterWjkjozwDCDBNGEHKV0803-76-74 04:12:00 Test Item Value Reference Range Interpretation Comments PTT (test code = PTT) 45.4 s 22.9-35.8 [place] 526272-06-28 04:12:00 Test Item Value Reference Range Interpretation Comments PT (test code = PT) 19.1 s 12.0-14.7 [place] 526272-06-28 04:12:00 Test Item Value Reference Range Interpretation Comments INR (test code = INR) 1.62 1 0.85-1.17 [facility] CenterKnltptiCXQKMZJDSP3494-34-08 04:12:00 Test Item Value Reference Range Interpretation Comments RBC Morph (test code = See Note (11/24/21 RBC Morph) 11:12 PM) [facility] CenterDftyvrzNUWWGWFBFY8867-78-07 04:12:00 Test Item Value Reference Range Interpretation Comments Plt Morph (test code = Normal (11/24/21 11:12 Plt Morph) PM) [facility] CenterBytytjpTRUCWXPYRZ1275-22-43 04:12:00 Test Item Value Reference Range Interpretation Comments Segs (test code = Segs) 72.2 45.0-75.0 [facility] CenterGrycovkSMARWOBFLF1245-69-93 04:12:00 Test Item Value Reference Range Interpretation Comments Lymphocytes (test code = Lymphocytes) 16.2 20.0-40.0 [facility] CenterPkonhsnTXKLOZINHM1575-73-78 04:12:00 Test Item Value Reference Range Interpretation Comments Monocytes (test code = Monocytes) 8.0 2.0-12.0 [facility] CenterTsulhgzWPPMNAMNLF6405-41-03 04:12:00 Test Item Value Reference Range Interpretation Comments Eosinophils (test code = 2.7 See_Comment [A utomated message] The Eosinophils) system which ge nerated this result tra nsmitted reference range : <=4.0. The reference r samantha was not used to int erpret this result as normal/abnormal . [facility] CenterRdjefksIDWOJYSBXR7120-62-26 04:12:00 Test Item Value Reference Range Interpretation Comments Basophils (test code = 0.9 See_Comment [Aut omated message] The Basophils) system which ge nerated this result tra nsmitted reference range : <=1.0. The reference r samantha was not used to int erpret this result as normal/abnormal . [facility] CenterEylanhrAURTKXZJVI2837-96-24 04:12:00 Test Item Value Reference Range Interpretation Comments Neutrophils # (test code = Neutrophils 2.9 1.5-8.1 #) [facility] CenterPohspwmSSZMNOXKYN5586-90-91 04:12:00 Test Item Value Reference Range Interpretation Comments Lymphocytes # (test code = Lymphocytes 0.7 1.0-5.5 #) [facility] CenterNrujjsgYPWZHEZAMS7852-32-57 04:12:00 Test Item Value Reference Range Interpretation Comments Monocytes # (test code 0.3 See_Comment [Aut omated message] The = Monocytes #) system which generated this result tra nsmitted reference range : <=0.8. The reference r samantha was not used to int erpret this result as normal/abnormal . [facility] CenterZkydbtcXUPPMJHYXU6912-94-93 04:12:00 Test Item Value Reference Range Interpretation Comments Eosinophils # (test code 0.1 See_Comment [A utomated message] The = Eosinophils #) system whic h generated this result tra nsmitted reference range : <=0.5. The reference r samantha was not used to int erpret this result as normal/abnormal . [facility] CenterPsvbpuqLQDYVYXVFY0312-79-42 04:12:00 Test Item Value Reference Range Interpretation Comments Anisocyte (test code = 1+ *ABN*(11/24/21 Anisocyte) 11:12 PM) [facility] CenterZwmryxuACLTDTWGCZ8444-82-27 04:12:00 Test Item Value Reference Range Interpretation Comments Macrocyte (test code = 1+ *ABN*(11/24/21 Macrocyte) 11:12 PM) [facility] CenterDofantbAINFEAYDIG5942-09-99 04:12:00 Test Item Value Reference Range Interpretation Comments Microcyte (test code = 1+ *ABN*(11/24/21 Microcyte) 11:12 PM) [facility] [id number] 04:12:00 Test Item Value Reference Range Interpretation Comments ABO/Rh (test code = ABO/Rh) AB POS [facility] [id number] 04:12:00 Test Item Value Reference Range Interpretation Comments Antibody Scrn (test Negative (11/24/21 code = Antibody Scrn) 11:12 PM) [facility] [id number] 04:12:00 Test Item Value Reference Range Interpretation Comments Total CK (test code = Total CK) 86 12-191 [facility]woodCARDI[facility] EEHSZBH9254-26-00 04:12:00 Test Item Value Reference Range Interpretation Comments HS Troponin I (test code = HS Troponin 316 I) [facility] [id number] 04:12:00 Test Item Value Reference Range Interpretation Comments Glucose Lvl (test code = Glucose Lvl) 261 70-99 [facility]2022-06-28 04:12:00 Test Item Value Reference Range Interpretation Comments BUN (test code = BUN) 60 7-22 [facility]2022-06-28 04:12:00 Test Item Value Reference Range Interpretation Comments Creatinine Lvl (test code = Creatinine 8.49 0.50-1.40 Lvl) [facility]2022-06-28 04:12:00 Test Item Value Reference Range Interpretation Comments Sodium Lvl (test code = Sodium Lvl) 133 135-145 [facility]2022-06-28 04:12:00 Test Item Value Reference Range Interpretation Comments Potassium Lvl (test code = Potassium 4.9 3.5-5.1 Lvl) [facility]2022-06-28 04:12:00 Test Item Value Reference Range Interpretation Comments Chloride Lvl (test code = Chloride Lvl) 93 95-109 [facility]2022-06-28 04:12:00 Test Item Value Reference Range Interpretation Comments CO2 (test code = CO2) 31 24-32 [facility]2022-06-28 04:12:00 Test Item Value Reference Range Interpretation Comments Calcium Lvl (test code = Calcium Lvl) 9.1 8.5-10.5 [facility]2022-06-28 04:12:00 Test Item Value Reference Range Interpretation Comments Total Protein (test code = Total 6.8 6.4-8.4 Protein) [facility]2022-06-28 04:12:00 Test Item Value Reference Range Interpretation Comments Albumin Lvl (test code = Albumin Lvl) 2.5 3.5-5.0 [facility]2022-06-28 04:12:00 Test Item Value Reference Range Interpretation Comments ALT (test code = ALT) 51 See_Comment [Auto mated message] The system which ge nerated this result transmit swathi reference range : <=65. The reference range was not used to interpr et this result as deny l/abnormal. [facility] [id number] 04:12:00 Test Item Value Reference Range Interpretation Comments AST (test code = AST) 36 See_Comment [Auto mated message] The system which ge nerated this result transmit swathi reference range : <=37. The reference range was not used to interpr et this result as deny l/abnormal. [place] 510012-06-28 04:12:00 Test Item Value Reference Range Interpretation Comments Alk Phos (test code = Alk Phos) 383 39-136 [facility] CenterAn[facility] [id number] 04:12:00 Test Item Value Reference Range Interpretation Comments Bili Total (test code = Bili Total) 1.1 0.2-1.3 [place] 510012-06-28 04:12:00 Test Item Value Reference Range Interpretation Comments AGAP (test code = AGAP) 13.9 10.0-20.0 [place] 510012-06-28 04:12:00 Test Item Value Reference Range Interpretation Comments B/C Ratio (test code = B/C Ratio) 7 1 6-25 [place] 510012-06-28 04:12:00 Test Item Value Reference Range Interpretation Comments Globulin (test code = Globulin) 4.3 2.7-4.2 [facility] CenterProspectWiseDANI[place] [id number] 04:12:00 Test Item Value Reference Range Interpretation Comments A/G Ratio (test code = A/G Ratio) 0.6 1 0.7-1.6 [place] 510012-06-28 04:12:00 Test Item Value Reference Range Interpretation Comments eGFR (test code = eGFR) 5 [place] 510012-06-28 04:12:00 Test Item Value Reference Range Interpretation Comments Procalcitonin Lvl (test 0.69 See_Comment [Au tomated message] code = Procalcitonin Lvl) Th e system which generated this result transmitted ref erence range: <=0.10. The reference range was not used to interpr et this result as normal/abnormal . [facility] KingwoodQzmuqbsAENPNRSVAD6867-31-53 04:12:00 Test Item Value Reference Range Interpretation Comments WBC (test code = WBC) 4.1 3.7-10.4 [place] 526272-06-28 04:12:00 Test Item Value Reference Range Interpretation Comments RBC (test code = RBC) 1.78 4.70-6.10 [place] 526272-06-28 04:12:00 Test Item Value Reference Range Interpretation Comments Hgb (test code = Hgb) 6.5 14.0-18.0 [place] 526272-06-28 04:12:00 Test Item Value Reference Range Interpretation Comments Hct (test code = Hct) 19.5 42.0-54.0 [place] 526272-06-28 04:12:00 Test Item Value Reference Range Interpretation Comments MCV (test code = MCV) 110.0 80.0-94.0 [place] 526272-06-28 04:12:00 Test Item Value Reference Range Interpretation Comments MCH (test code = MCH) 36.5 pg 27.0-31.0 [place] 526272-06-28 04:12:00 Test Item Value Reference Range Interpretation Comments MCHC (test code = MCHC) 33.2 32.0-36.0 [facility] CenterFditbvdKWVUHBTZFP4965-42-99 04:12:00 Test Item Value Reference Range Interpretation Comments RDW (test code = RDW) 19.0 11.5-14.5 [place] [address]-06-28 04:12:00 Test Item Value Reference Range Interpretation Comments Platelet (test code = Platelet) 180 133-450 [facility] CenterTmgcdeqROAPSWWXNE3224-21-56 04:12:00 Test Item Value Reference Range Interpretation Comments MPV (test code = MPV) 8.3 7.4-10.4 [place] [address]-06-28 04:12:00 Test Item Value Reference Range Interpretation Comments PTT (test code = PTT) 45.4 s 22.9-35.8 [place] [address]-06-28 04:12:00 Test Item Value Reference Range Interpretation Comments PT (test code = PT) 19.1 s 12.0-14.7 [place] [address]-06-28 04:12:00 Test Item Value Reference Range Interpretation Comments INR (test code = INR) 1.62 1 0.85-1.17 [place] 526272-06-28 04:12:00 Test Item Value Reference Range Interpretation Comments RBC Morph (test code = See Note (11/24/21 RBC Morph) 11:12 PM) [facility] CenterUkjbhscHLZBGYLQNP9758-16-72 04:12:00 Test Item Value Reference Range Interpretation Comments Plt Morph (test code = Normal (11/24/21 11:12 Plt Morph) PM) [place] 526272-06-28 04:12:00 Test Item Value Reference Range Interpretation Comments Segs (test code = Segs) 72.2 45.0-75.0 [place] 526272-06-28 04:12:00 Test Item Value Reference Range Interpretation Comments Lymphocytes (test code = Lymphocytes) 16.2 20.0-40.0 [place] 526272-06-28 04:12:00 Test Item Value Reference Range Interpretation Comments Monocytes (test code = Monocytes) 8.0 2.0-12.0 [place] 526272-06-28 04:12:00 Test Item Value Reference Range Interpretation Comments Eosinophils (test code = 2.7 See_Comment [A utomated message] The Eosinophils) system which ge nerated this result tra nsmitted reference range : <=4.0. The reference r samantha was not used to int erpret this result as normal/abnormal . [facility] CenterDzumelgFLDFTFZQOF3872-91-77 04:12:00 Test Item Value Reference Range Interpretation Comments Basophils (test code = 0.9 See_Comment [Aut omated message] The Basophils) system which ge nerated this result tra nsmitted reference range : <=1.0. The reference r samantha was not used to int erpret this result as normal/abnormal . [facility] CenterJscoaurXAAXEQNRTB7611-42-18 04:12:00 Test Item Value Reference Range Interpretation Comments Neutrophils # (test code = Neutrophils 2.9 1.5-8.1 #) [place] 526272-06-28 04:12:00 Test Item Value Reference Range Interpretation Comments Lymphocytes # (test code = Lymphocytes 0.7 1.0-5.5 #) [place] 526272-06-28 04:12:00 Test Item Value Reference Range Interpretation Comments Monocytes # (test code 0.3 See_Comment [Aut omated message] The = Monocytes #) system which generated this result tra nsmitted reference range : <=0.8. The reference r samantha was not used to int erpret this result as normal/abnormal . [facility]woodLbqyoxqWOVSPYARGC3132-66-27 04:12:00 Test Item Value Reference Range Interpretation Comments Eosinophils # (test code 0.1 See_Comment [A utomated message] The = Eosinophils #) system whic h generated this result tra nsmitted reference range : <=0.5. The reference r samantha was not used to int erpret this result as normal/abnormal . [facility]woodMyxzzmaXJFVALNEDM6086-94-82 04:12:00 Test Item Value Reference Range Interpretation Comments Anisocyte (test code = 1+ *ABN*(11/24/21 Anisocyte) 11:12 PM) [facility]woodLvgswkwZWBXAXWTLC6489-61-71 04:12:00 Test Item Value Reference Range Interpretation Comments Macrocyte (test code = 1+ *ABN*(11/24/21 Macrocyte) 11:12 PM) [facility] KingwoodVletfvlCUWFBEGDXC9283-80-53 04:12:00 Test Item Value Reference Range Interpretation Comments Microcyte (test code = 1+ *ABN*(11/24/21 Microcyte) 11:12 PM) [facility] CenterReactX [id number] 04:12:00 Test Item Value Reference Range Interpretation Comments ABO/Rh (test code = ABO/Rh) AB POS [facility] CenterReactX [id number] 04:12:00 Test Item Value Reference Range Interpretation Comments Antibody Scrn (test Negative (11/24/21 code = Antibody Scrn) 11:12 PM) [facility] CenterCityvox MJWZVHD9293-89-00 04:12:00 Test Item Value Reference Range Interpretation Comments Total CK (test code = Total CK) 86 12-191 [facility] CenterCityvox RXNRCHC3044-94-97 04:12:00 Test Item Value Reference Range Interpretation Comments HS Troponin I (test code = HS Troponin 316 I) [facility] CenterMirage NetworksKTLGA5362-29-79 04:12:00 Test Item Value Reference Range Interpretation Comments Glucose Lvl (test code = Glucose Lvl) 261 70-99 [facility] Year Up2022-06-28 04:12:00 Test Item Value Reference Range Interpretation Comments BUN (test code = BUN) 60 7-22 [place] 510012-06-28 04:12:00 Test Item Value Reference Range Interpretation Comments Creatinine Lvl (test code = Creatinine 8.49 0.50-1.40 Lvl) [place] 510012-06-28 04:12:00 Test Item Value Reference Range Interpretation Comments Sodium Lvl (test code = Sodium Lvl) 133 135-145 [place] 510012-06-28 04:12:00 Test Item Value Reference Range Interpretation Comments Potassium Lvl (test code = Potassium 4.9 3.5-5.1 Lvl) [place] [address]-06-28 04:12:00 Test Item Value Reference Range Interpretation Comments Chloride Lvl (test code = Chloride Lvl) 93 95-109 [place] 510012-06-28 04:12:00 Test Item Value Reference Range Interpretation Comments CO2 (test code = CO2) 31 24-32 [place] 510012-06-28 04:12:00 Test Item Value Reference Range Interpretation Comments Calcium Lvl (test code = Calcium Lvl) 9.1 8.5-10.5 [place] [address]-06-28 04:12:00 Test Item Value Reference Range Interpretation Comments Total Protein (test code = Total 6.8 6.4-8.4 Protein) [place] 510012-06-28 04:12:00 Test Item Value Reference Range Interpretation Comments Albumin Lvl (test code = Albumin Lvl) 2.5 3.5-5.0 [place] 510012-06-28 04:12:00 Test Item Value Reference Range Interpretation Comments ALT (test code = ALT) 51 See_Comment [Auto mated message] The system which ge nerated this result transmit swathi reference range : <=65. The reference range was not used to interpr et this result as deny l/abnormal. [place] 510012-06-28 04:12:00 Test Item Value Reference Range Interpretation Comments AST (test code = AST) 36 See_Comment [Auto mated message] The system which ge nerated this result transmit swathi reference range : <=37. The reference range was not used to interpr et this result as deny l/abnormal. [place] 510012-06-28 04:12:00 Test Item Value Reference Range Interpretation Comments Alk Phos (test code = Alk Phos) 383 39-136 [facility]2022-06-28 04:12:00 Test Item Value Reference Range Interpretation Comments Bili Total (test code = Bili Total) 1.1 0.2-1.3 [place] 510012-06-28 04:12:00 Test Item Value Reference Range Interpretation Comments AGAP (test code = AGAP) 13.9 10.0-20.0 [place] 510012-06-28 04:12:00 Test Item Value Reference Range Interpretation Comments B/C Ratio (test code = B/C Ratio) 7 1 6-25 [place] 510012-06-28 04:12:00 Test Item Value Reference Range Interpretation Comments Globulin (test code = Globulin) 4.3 2.7-4.2 [place] 510012-06-28 04:12:00 Test Item Value Reference Range Interpretation Comments A/G Ratio (test code = A/G Ratio) 0.6 1 0.7-1.6 [place] 510012-06-28 04:12:00 Test Item Value Reference Range Interpretation Comments eGFR (test code = eGFR) 5 [place] 510012-06-28 04:12:00 Test Item Value Reference Range Interpretation Comments Procalcitonin Lvl (test 0.69 See_Comment [Au tomated message] code = Procalcitonin Lvl) Th e system which generated this result transmitted ref erence range: <=0.10. The reference range was not used to interpr et this result as normal/abnormal . [facility] CenterLycvhvzXATOHRGROF4723-95-19 04:12:00 Test Item Value Reference Range Interpretation Comments WBC (test code = WBC) 4.1 3.7-10.4 [place] 526272-06-28 04:12:00 Test Item Value Reference Range Interpretation Comments RBC (test code = RBC) 1.78 4.70-6.10 [place] 526272-06-28 04:12:00 Test Item Value Reference Range Interpretation Comments Hgb (test code = Hgb) 6.5 14.0-18.0 [place] 526272-06-28 04:12:00 Test Item Value Reference Range Interpretation Comments Hct (test code = Hct) 19.5 42.0-54.0 [facility] CenterKiofuowATQTKYZFVF2965-08-84 04:12:00 Test Item Value Reference Range Interpretation Comments MCV (test code = MCV) 110.0 80.0-94.0 [facility] CenterAhfgxzhUIGGKGYNBF0910-15-86 04:12:00 Test Item Value Reference Range Interpretation Comments MCH (test code = MCH) 36.5 pg 27.0-31.0 [facility] CenterCmrgbtpSMTDSHNSQN1578-11-87 04:12:00 Test Item Value Reference Range Interpretation Comments MCHC (test code = MCHC) 33.2 32.0-36.0 [facility] CenterVdhbkhmZBKOFRVILU0665-06-52 04:12:00 Test Item Value Reference Range Interpretation Comments RDW (test code = RDW) 19.0 11.5-14.5 [facility] CenterNogmoilYFKIQZIQCP3150-10-34 04:12:00 Test Item Value Reference Range Interpretation Comments Platelet (test code = Platelet) 180 133-450 [facility] CenterBkhzhdvGJCVREVGFC5890-72-46 04:12:00 Test Item Value Reference Range Interpretation Comments MPV (test code = MPV) 8.3 7.4-10.4 [facility] CenterOvlzvzdTNHBZKWWWZ6750-08-19 04:12:00 Test Item Value Reference Range Interpretation Comments PTT (test code = PTT) 45.4 s 22.9-35.8 [facility] CenterLkuspdkGXCNGESIRX7465-07-66 04:12:00 Test Item Value Reference Range Interpretation Comments PT (test code = PT) 19.1 s 12.0-14.7 [facility] CenterBdcjvqcTAMANPXVZL1604-20-96 04:12:00 Test Item Value Reference Range Interpretation Comments INR (test code = INR) 1.62 1 0.85-1.17 [facility] CenterByeyoujZFVRNTYECZ9627-60-24 04:12:00 Test Item Value Reference Range Interpretation Comments RBC Morph (test code = See Note (11/24/21 RBC Morph) 11:12 PM) [facility] CenterNtigllyTTUKMNDVNJ7361-24-62 04:12:00 Test Item Value Reference Range Interpretation Comments Plt Morph (test code = Normal (11/24/21 11:12 Plt Morph) PM) [facility] CenterUnwoxfaIRXJHFMFLC4456-86-55 04:12:00 Test Item Value Reference Range Interpretation Comments Segs (test code = Segs) 72.2 45.0-75.0 [facility] CenterKytbgywXFDHOWYYGT7155-32-30 04:12:00 Test Item Value Reference Range Interpretation Comments Lymphocytes (test code = Lymphocytes) 16.2 20.0-40.0 [place] 526272-06-28 04:12:00 Test Item Value Reference Range Interpretation Comments Monocytes (test code = Monocytes) 8.0 2.0-12.0 [facility] CenterZyilrgwVEQIGTIDHL5163-69-55 04:12:00 Test Item Value Reference Range Interpretation Comments Eosinophils (test code = 2.7 See_Comment [A utomated message] The Eosinophils) system which ge nerated this result tra nsmitted reference range : <=4.0. The reference r samantha was not used to int erpret this result as normal/abnormal . [place] 526272-06-28 04:12:00 Test Item Value Reference Range Interpretation Comments Basophils (test code = 0.9 See_Comment [Aut omated message] The Basophils) system which ge nerated this result tra nsmitted reference range : <=1.0. The reference r samantha was not used to int erpret this result as normal/abnormal . [facility] CenterWhsbsauSMZGPBPNCX0012-71-14 04:12:00 Test Item Value Reference Range Interpretation Comments Neutrophils # (test code = Neutrophils 2.9 1.5-8.1 #) [facility] CenterCbcxyucGZRZTVGJFF8987-98-72 04:12:00 Test Item Value Reference Range Interpretation Comments Lymphocytes # (test code = Lymphocytes 0.7 1.0-5.5 #) [place] 526272-06-28 04:12:00 Test Item Value Reference Range Interpretation Comments Monocytes # (test code 0.3 See_Comment [Aut omated message] The = Monocytes #) system which generated this result tra nsmitted reference range : <=0.8. The reference r samantha was not used to int erpret this result as normal/abnormal . [facility] CenterDcstvdnRNQIPLTTDL4806-21-80 04:12:00 Test Item Value Reference Range Interpretation Comments Eosinophils # (test code 0.1 See_Comment [A utomated message] The = Eosinophils #) system whic h generated this result tra nsmitted reference range : <=0.5. The reference r samantha was not used to int erpret this result as normal/abnormal . [facility]woodMtrvehwLINBKNLLLU3778-09-45 04:12:00 Test Item Value Reference Range Interpretation Comments Anisocyte (test code = 1+ *ABN*(11/24/21 Anisocyte) 11:12 PM) [facility] CenterPegqiobPZMGQXKXUC7622-28-13 04:12:00 Test Item Value Reference Range Interpretation Comments Macrocyte (test code = 1+ *ABN*(11/24/21 Macrocyte) 11:12 PM) [facility] CenterOmxiadpHAOJAUFXBC8548-81-00 04:12:00 Test Item Value Reference Range Interpretation Comments Microcyte (test code = 1+ *ABN*(11/24/21 Microcyte) 11:12 PM) [facility] [employer] DBIRBIG0741-41-98 04:12:00 Test Item Value Reference Range Interpretation Comments ABO/Rh (test code = ABO/Rh) AB POS [facility] [employer] GWROJNW7746-41-40 04:12:00 Test Item Value Reference Range Interpretation Comments Antibody Scrn (test Negative (11/24/21 code = Antibody Scrn) 11:12 PM) [facility] CenterCityvox ZGJCUDH9706-69-44 04:12:00 Test Item Value Reference Range Interpretation Comments Total CK (test code = Total CK) 86 12-191 [facility] [employer] GVSHQSN9398-95-82 04:12:00 Test Item Value Reference Range Interpretation Comments HS Troponin I (test code = HS Troponin 316 I) [facility] Year Up2022-06-28 04:12:00 Test Item Value Reference Range Interpretation Comments Glucose Lvl (test code = Glucose Lvl) 261 70-99 [facility] [employer] AQNCM5489-19-16 04:12:00 Test Item Value Reference Range Interpretation Comments BUN (test code = BUN) 60 7-22 [facility] Year Up2022-06-28 04:12:00 Test Item Value Reference Range Interpretation Comments Creatinine Lvl (test code = Creatinine 8.49 0.50-1.40 Lvl) [facility] Year Up2022-06-28 04:12:00 Test Item Value Reference Range Interpretation Comments Sodium Lvl (test code = Sodium Lvl) 133 135-145 [facility] Year Up2022-06-28 04:12:00 Test Item Value Reference Range Interpretation Comments Potassium Lvl (test code = Potassium 4.9 3.5-5.1 Lvl) [place] 510012-06-28 04:12:00 Test Item Value Reference Range Interpretation Comments Chloride Lvl (test code = Chloride Lvl) 93 95-109 [place] 510012-06-28 04:12:00 Test Item Value Reference Range Interpretation Comments CO2 (test code = CO2) 31 24-32 [place] 510012-06-28 04:12:00 Test Item Value Reference Range Interpretation Comments Calcium Lvl (test code = Calcium Lvl) 9.1 8.5-10.5 [place] 510012-06-28 04:12:00 Test Item Value Reference Range Interpretation Comments Total Protein (test code = Total 6.8 6.4-8.4 Protein) [place] 510012-06-28 04:12:00 Test Item Value Reference Range Interpretation Comments Albumin Lvl (test code = Albumin Lvl) 2.5 3.5-5.0 [place] 510012-06-28 04:12:00 Test Item Value Reference Range Interpretation Comments ALT (test code = ALT) 51 See_Comment [Auto mated message] The system which ge nerated this result transmit swathi reference range : <=65. The reference range was not used to interpr et this result as deny l/abnormal. [place] 510012-06-28 04:12:00 Test Item Value Reference Range Interpretation Comments AST (test code = AST) 36 See_Comment [Auto mated message] The system which ge nerated this result transmit swathi reference range : <=37. The reference range was not used to interpr et this result as deny l/abnormal. [place] 510012-06-28 04:12:00 Test Item Value Reference Range Interpretation Comments Alk Phos (test code = Alk Phos) 383 39-136 [place] 510012-06-28 04:12:00 Test Item Value Reference Range Interpretation Comments Bili Total (test code = Bili Total) 1.1 0.2-1.3 [place] 510012-06-28 04:12:00 Test Item Value Reference Range Interpretation Comments AGAP (test code = AGAP) 13.9 10.0-20.0 [place] 510012-06-28 04:12:00 Test Item Value Reference Range Interpretation Comments B/C Ratio (test code = B/C Ratio) 7 1 6-25 [place] 510012-06-28 04:12:00 Test Item Value Reference Range Interpretation Comments Globulin (test code = Globulin) 4.3 2.7-4.2 [place] 510012-06-28 04:12:00 Test Item Value Reference Range Interpretation Comments A/G Ratio (test code = A/G Ratio) 0.6 1 0.7-1.6 [place] 510012-06-28 04:12:00 Test Item Value Reference Range Interpretation Comments eGFR (test code = eGFR) 5 [place] 510012-06-28 04:12:00 Test Item Value Reference Range Interpretation Comments Procalcitonin Lvl (test 0.69 See_Comment [Au tomated message] code = Procalcitonin Lvl) Th e system which generated this result transmitted ref erence range: <=0.10. The reference range was not used to interpr et this result as normal/abnormal . [place] 526272-06-28 04:12:00 Test Item Value Reference Range Interpretation Comments WBC (test code = WBC) 4.1 3.7-10.4 [place] 526272-06-28 04:12:00 Test Item Value Reference Range Interpretation Comments RBC (test code = RBC) 1.78 4.70-6.10 [place] 526272-06-28 04:12:00 Test Item Value Reference Range Interpretation Comments Hgb (test code = Hgb) 6.5 14.0-18.0 [place] 526272-06-28 04:12:00 Test Item Value Reference Range Interpretation Comments Hct (test code = Hct) 19.5 42.0-54.0 [place] [address]-06-28 04:12:00 Test Item Value Reference Range Interpretation Comments MCV (test code = MCV) 110.0 80.0-94.0 [place] 526272-06-28 04:12:00 Test Item Value Reference Range Interpretation Comments MCH (test code = MCH) 36.5 pg 27.0-31.0 [place] 526272-06-28 04:12:00 Test Item Value Reference Range Interpretation Comments MCHC (test code = MCHC) 33.2 32.0-36.0 [facility] CenterCjrlmdqENTOAKEQVU7436-27-81 04:12:00 Test Item Value Reference Range Interpretation Comments RDW (test code = RDW) 19.0 11.5-14.5 [facility] CenterJdxdmsaUJMEWORWHB8910-73-86 04:12:00 Test Item Value Reference Range Interpretation Comments Platelet (test code = Platelet) 180 133-450 [facility] CenterTajotgiJFQVDYUUCW0794-89-82 04:12:00 Test Item Value Reference Range Interpretation Comments MPV (test code = MPV) 8.3 7.4-10.4 [facility] CenterZxqqbgoRYWHQNGTBG8953-35-05 04:12:00 Test Item Value Reference Range Interpretation Comments PTT (test code = PTT) 45.4 s 22.9-35.8 [facility] CenterUzfrhedDMGNHKPODB4133-24-52 04:12:00 Test Item Value Reference Range Interpretation Comments PT (test code = PT) 19.1 s 12.0-14.7 [facility] CenterPnsfdzlAYZTRKPGBK0216-01-88 04:12:00 Test Item Value Reference Range Interpretation Comments INR (test code = INR) 1.62 1 0.85-1.17 [facility] CenterBigszhpPXTXHISJPB3936-23-55 04:12:00 Test Item Value Reference Range Interpretation Comments RBC Morph (test code = See Note (11/24/21 RBC Morph) 11:12 PM) [facility] CenterHamlqiiZKAJOHBUXW3337-31-12 04:12:00 Test Item Value Reference Range Interpretation Comments Plt Morph (test code = Normal (11/24/21 11:12 Plt Morph) PM) [facility] CenterMynincmHIIQJIGLZC3755-82-58 04:12:00 Test Item Value Reference Range Interpretation Comments Segs (test code = Segs) 72.2 45.0-75.0 [facility] CenterSasbkvgDOCYUIMHCU7482-91-41 04:12:00 Test Item Value Reference Range Interpretation Comments Lymphocytes (test code = Lymphocytes) 16.2 20.0-40.0 [facility] CenterGholrkiCPHLHKUCXJ1593-20-92 04:12:00 Test Item Value Reference Range Interpretation Comments Monocytes (test code = Monocytes) 8.0 2.0-12.0 [facility] CenterTucfkzlCYUCEFBHBL9170-56-32 04:12:00 Test Item Value Reference Range Interpretation Comments Eosinophils (test code = 2.7 See_Comment [A utomated message] The Eosinophils) system which ge nerated this result tra nsmitted reference range : <=4.0. The reference r samantha was not used to int erpret this result as normal/abnormal . [facility] CenterRzwyrnjYBPJYRLYYU4510-92-45 04:12:00 Test Item Value Reference Range Interpretation Comments Basophils (test code = 0.9 See_Comment [Aut omated message] The Basophils) system which ge nerated this result tra nsmitted reference range : <=1.0. The reference r samantha was not used to int erpret this result as normal/abnormal . [facility] CenterYohahxoIVUWFNGJWJ4565-18-36 04:12:00 Test Item Value Reference Range Interpretation Comments Neutrophils # (test code = Neutrophils 2.9 1.5-8.1 #) [place] 526272-06-28 04:12:00 Test Item Value Reference Range Interpretation Comments Lymphocytes # (test code = Lymphocytes 0.7 1.0-5.5 #) [facility] CenterXivbfxiCIRQCPCJIK7108-97-40 04:12:00 Test Item Value Reference Range Interpretation Comments Monocytes # (test code 0.3 See_Comment [Aut omated message] The = Monocytes #) system which generated this result tra nsmitted reference range : <=0.8. The reference r samantha was not used to int erpret this result as normal/abnormal . [facility] CenterVeiiwueOURGNDLFCM4179-07-33 04:12:00 Test Item Value Reference Range Interpretation Comments Eosinophils # (test code 0.1 See_Comment [A utomated message] The = Eosinophils #) system whic h generated this result tra nsmitted reference range : <=0.5. The reference r samantha was not used to int erpret this result as normal/abnormal . [facility] CenterIbhlubvUCZYOIVEFS3852-77-18 04:12:00 Test Item Value Reference Range Interpretation Comments Anisocyte (test code = 1+ *ABN*(11/24/21 Anisocyte) 11:12 PM) [facility] CenterArtsdlwKVSMKVCKHP8319-12-93 04:12:00 Test Item Value Reference Range Interpretation Comments Macrocyte (test code = 1+ *ABN*(11/24/21 Macrocyte) 11:12 PM) [place] 526272-06-28 04:12:00 Test Item Value Reference Range Interpretation Comments Microcyte (test code = 1+ *ABN*(11/24/21 Microcyte) 11:12 PM) [facility] [id number] 00:00:00 Test Item Value Reference Range Interpretation Comments A1C (test code = 4548-4) 8.8 HEMOGLOBIN [id number] 00:00:00 Test Item Value Reference Range Interpretation Comments A1C (test code = 4548-4) 8.3 HEMOGLOBIN [id number] 00:00:00 Test Item Value Reference Range Interpretation Comments A1C (test code = 4548-4) 10.3 Notes Date/Time Note Provider Source 2022-01-02 12:48:02-00:00 PROCEDURE INFORMATION: [facility] Exam: XR Chest Exam date and time: [...] Chester Kemp MD On 01/02/2022 13:11:40; VR-KBRYA [id number] 12:48:02-00:00 PROCEDURE INFORMATION: [facility] Exam: XR Chest Exam date and time: [...] pneumonitis. Chester Kemp MD On 01/02/2022 13:11:40; CARMELA-KBRYA [id number] 5500-07-18 12:00:00-00:00 Radiation Dose CTDIVOL = 0 ( mGy): DLP = 1052.78 (mGy-cm) [facility] PROCEDURE INFORMATION: Exam: CTA Chest With Contrast Exam date and time: 12/15/2021 12:49 PM Age: 76 years old Clinical indication: /possible pe, positive for covid-19, respiratory infections and infla 12/14/21 TECHNIQUE: Imaging protocol: Computed tomographic a ngiography of the chest with contrast. 3D rendering (Not supervised by radiologist): PR P and/or 3D reconstructed images were created [...] tracheobronchomalacia. Alexis Maloney MD On 12/15/2021 15:45:07; VR- [id number] 2021-12-15 12:00:00-00:00 Radiation Dose CTDIVOL = 0 ( mGy): DLP = 1052.78 (mGy-cm) [facility] PROCEDURE INFORMATION: Exam: CTA Chest With Contrast Exam date and time: 12/15/2021 12:49 PM Age: 76 years old Clinical indication: /possible pe, positive for covid-19, respiratory infections and infla 12/14/21 TECHNIQUE: Imaging protocol: Computed tomographic a ngiography of the chest with contrast. 3D rendering (Not supervised by radiologist): PR P and/or 3D reconstructed images were created [...] tracheobronchomalacia. Alexis Maloney MD On 12/15/2021 15:45:07; CARMELA- [id number] 2021-12-14 15:50:31-00:00 [facility]EDURE [facility]: [facility]: XR Chest Exam date and time: [...] Back MD On 12/14/2021 16:21:28; SHARRI [id number] 2021-12-14 15:50:31-00:00 PROCEDURE INFORMATION: [facility]: XR Chest Exam date and time: [...] 16:21:28; SHARRI [id number] 2021-12-03 20:30:42-00:00 PROCEDURE INFORMATION: [facility] Ex[facility]: XR Chest Exam date and time: [...] Avtar Fortune MD On 12/03/2021 21:17:23; [id number] 2021-12-03 20:30:42-00:00 PROCEDURE INFORMATION: [facility] Exam: XR Chest Exam date and time: [...] Avtar Fortune MD On 12/03/2021 21:17:23; [id number] 2021-11-25 05:45:00-00:00 PROCEDURE INFORMATION: [facility] Exam: US Duplex Lower Extremity Veins, Bilateral [...] thrombosis. Cole Barnes MD On 11/25/2021 07:01:56; GABRIELA [id number] 2021-11-25 05:45:00-00:00 PROCEDURE INFORMATION: [facility] Exam: US Abdomen, Limited; Right Upper Quadrant [...] ascites Kit Pollard MD On 11/25/2021 07:54:47; CARMELA [id number] 2021-11-25 05:45:00-00:00 PROCEDURE INFORMATION: [facility] Exam: US Duplex Lower Extremity Veins, Bilateral [...] Cole Barnes MD On 11/25/2021 07:01:56; VR-[id number] 2021-11-25 05:45:00-00:00 PROCEDURE INFORMATION: [facility] Exam: US Abdomen, Limited; Right Upper Quadrant [...] Kit Pollard MD On 11/25/2021 07:54:47; VR [id number] 2021-11-25 02:17:08-00:00 PROCEDURE INFORMATION: [facility] Exam: XR Right Foot Exam date and [...] Surendra Chavis MD On 11/25/2021 02:27:52; [id number] 2021-11-25 02:17:08-00:00 PROCEDURE INFORMATION: [facility] Exam: XR Right Foot Exam date and [...] Surendra Chavis MD On 11/25/2021 02:27:52; [id number] 2021-11-24 23:56:05-00:00 Radiation Dose CTDIVOL = 0 ( mGy): DLP = 675.2 (mGy-cm) [facility] PROCEDURE INFORMATION: Exam: CT Abdomen And Pelvis [...] additional nonacute findings. COMMENTS: Consistent with the [employer] Incidental Findings [employer] [...] Surendra Chavis MD On 11/25/2021 00:47:46; [id number] 2021-11-24 23:56:05-00:00 Radiation Dose CTDIVOL = 0 ( mGy): DLP = 675.2 (mGy-cm) [facility] PROCEDURE INFORMATION: Exam: CT Abdomen And Pelvis [...] additional nonacute findings. COMMENTS: Consistent with the [employer] Incidental Findings [employer] [...] Surendra Chavis MD On 11/25/2021 00:47:46; [id number] 2021-11-24 22:50:28-00:00 PROCEDURE INFORMATION: [facility] Exam: XR Chest Exam date and time: [...] Surendra Chavis MD On 11/24/2021 22:53:49; [id number] 2021-11-24 22:50:28-00:00 PROCEDURE INFORMATION: [facility] Exam: XR Chest Exam date and time: [...] Surendra Chavis MD On 11/24/2021 22:53:49; [id number]
[2022-11-20 17:05] LABS: Absolute Lymphocytes (CBC) 0.8 K/uL (0.7-4.9); Hematocrit 27.1 % (39.6-49.0); Lymphocytes % 13.6 % (15.3-44.8); MCV 85.8 fL (80-100); MPV 7.2 fL (7.6-11.3); RBC Red Blood Cell Count 3.16 M/uL (4.33-5.43)
[2022-11-20 17:24] LABS: Albumin 3.4 g/dL (3.4-5.0); Bilirubin Total 0.7 mg/dL (0.2-1.0); Potassium 3.2 mEq/L (3.5-5.1); Protein, Total 7.7 g/dL (6.4-8.2)
--- NOTE | 2022-11-20 17:31 | RAD REPORT ---
EXAM DESCRIPTION: CT - Abdomen Pelvis Wo Contrast - 11/20/2022 5:03 pm CLINICAL HISTORY: Abdominal pain. abdominal pain COMPARISON: Abdomen Pelvis Wo Contrast dated 09/10/2022 TECHNIQUE: CT imaging of the abdomen and pelvis was performed without contrast. Solid organ, bowel a nd vascular assessment is limited due to lack of IV and oral contrast. All CT scans are performed using dose optimization technique as appropriate and may include automated exposure control or mA/KV adjustment according to patient size. FINDINGS: Small bilateral pleural effusions.Consolidation in the right lung base posteriorly may rep resent pneumonia. Moderate to large hiatal hernia. Cholelithiasis. No gross liver or spleen abnormality on noncontrast imaging. Pancreas is unremarkable . Both kidneys are somewhat small size. Benign cyst is present left kidney. No worrisome adrenal find ing. No bowel obstruction, free air, free fluid or abscess. The appendix is normal. A large amount of sto ol is retained in the rectosigmoid colon. Aortoiliac atherosclerosis. Large bilateral inguinal hernias containing fat and fluid on the right. IMPRESSION: Marked rectosigmoid fecal retention. Cholelithiasis. Right lung base posterior consolidation may represent pneumonia/infiltrate. A limited non-contrast examination was performed as detailed.
[2022-11-20] MEDS ORDERED: MAGNESIUM CITRATE 300 ML BOT ONE (19:56)
[2022-11-20] MEDS ORDERED: KETOROLAC 30 MG/ML INJ ONE (20:01)
[2022-11-20] MEDS ORDERED: FLEET ENEMA ADULT PR ONE (21:13)
--- NOTE | 2022-11-20 21:52 | ER ---
Nurse's Notes [facility] Name: Guzman Mayers Age: 77 yrs Sex: Male : 1945 Arrival Date: 11/20/2022 Time: 15:42 Bed 14 Private MD: Naveed Fortune Diagnosis: Constipation;Pneumonia Presentation: 11/20 16:23 Chief complaint: Patient states: Constipation X8 days. Pt states that he has been using cm10 OTC medications with no relief. Pt complaining of abdominal pain and back pain. Coronavirus screen: Vaccine status: Patient reports receiving the 2nd dose of the covid vaccine. Client denies travel out of the [place] in the last 14 days. At this time, the client does not indicate any symptoms associated with coronavirus-19. Ebola Screen: Patient denies travel to an Ebola-affected area in the 21 days before illness onset. No symptoms or risks identified at this time. Initial Sepsis Screen: Does the patient meet any 2 criteria? No. Patient's initial sepsis screen is negative. Does the patient have a suspected source of infection? No. Patient's initial sepsis screen is negative. Risk Assessment: Do you want to hurt yourself or someone else? Patient reports no desire to harm self or others. Onset of symptoms was November 20, 2022. 16:23 Method Of Arrival: Wheelchair cm10 16:23 Acuity: CHICHO 3 cm10 Triage Assessment: 16:27 General: Appears in no apparent distress. uncomfortable, Behavior is calm, cooperative. cm10 Neuro: No deficits noted. Level of Consciousness is awake, alert, Oriented to person, place, time, situation. Respiratory: No deficits noted. Airway is patent Respiratory effort is even, unlabored, Respiratory pattern is regular, symmetrical. Historical: - Allergies: 16:27 Codeine; cm10 16:27 GABAPENTIN; cm10 - PMHx: 16:27 ADD/ADHD; CHF; Diabetes - IDDM; COPD; CKD; Dialysis; MWF; High Cholesterol; HTN; cm10 Hypertension; - Immunization history:: Adult Immunizations unknown. - Social history:: Smoking status: Patient denies any tobacco usage or history of. Screenin:51 [facility] ED Fall Risk Assessment (Adult) History of falling in the last 3 months, ll3 including since admission No falls in past 3 months (0 pts) Confusion or Disorientation No (0 pts) Intoxicated or Sedated No (0 pts) Impaired Gait No (0 pts) Mobility Assist Device Used Yes (1 pt) Altered Elimination No (0 pt) Score/Fall Risk Level 0 - 2 = Low Risk Oriented to surroundings, Maintained a safe environment, Educated pt \T\ family on fall prevention, incl call for assistance when getting out of bed. Abuse screen: Denies threats or abuse. Denies injuries from another. Nutritional screening: No deficits noted. Tuberculosis screening: No symptoms or risk factors identified. Assessment: 20:52 General: Appears uncomfortable, Behavior is calm, cooperative. Pain: Complains of pain ll3 in back. Neuro: Level of Consciousness is awake, alert, obeys commands, Oriented to person, place, time, situation. GI: Bowel sounds present X 4 quads. Abd is soft and non tender X 4 quads. Reports constipation, since states last BM was 8 days ago. Derm: Skin is pink, warm \T\ dry. Musculoskeletal: Reports pain in back. Vital Signs: 16:23 BP 142 / 58; Pulse 75; Resp 16; Temp 97.7; Pulse Ox 98% on R/A; Weight 71.67 kg (R); cm10 Height 5 ft. 10 in. (R); Pain 5/10; 20:24 BP 137 / 56; Pulse 56; Resp 17; Pulse Ox 99% on R/A; ll3 16:23 Body Mass Index 22.67 (71.67 kg, 177.8 cm) cm10 16:23 Pain Scale: Adult cm10 ED Course: 15:46 Patient arrived in ED. im 15:46 Naveed Fortune DO is Private Physician. im 16:26 Triage completed. cm10 16:30 Arm band placed on Patient placed in waiting room. cm10 16:39 Héctor Lopez PA is PHCP. m 16:39 Arya Rivera MD is Attending Physician. m 16:54 CBC with Diff Sent. cm10 16:54 CMP Sent. cm10 16:54 Lipase Sent. cm10 16:54 Initial lab(s) drawn, by me, sent to lab. Inserted saline lock: 20 gauge in right cm10 forearm, using aseptic technique. Blood collected. 17:05 CT Abd/Pelvis - Without Contrast In Process Unspecified. EDMS 20:52 Patient has correct armband on for positive identification. Bed in low position. Call ll3 light in reach. Side rails up X 1. Adult w/ patient. 21:50 Naveed Fortune DO is Referral Physician. [facility] 22:30 No provider procedures requiring assistance completed. IV discontinued, intact, pf1 bleeding controlled, No redness/swelling at site. Pressure dressing applied. Administered Medications: 20:01 Drug: Magnesium Citrate PO Liquid 300 ml Route: PO; ll3 21:00 Follow up: Response: No adverse reaction; Marked relief of symptoms ll3 21:15 Drug: Fleet Enema WI 133 ml Route: WI; pf1 21:55 Follow up: Response: No adverse reaction; Marked relief of symptoms ll3 22:00 Drug: Rocephin IV 1 grams Route: IV; Rate: calculated rate; Site: right antecubital; ll3 22:05 Follow up: Response: No adverse reaction; Marked relief of symptoms; IV Status: pf1 Completed infusion; IV Intake: 10ml Intake: 22:05 IV: 10ml; Total: 10ml. pf1 Outcome: 21:51 Discharge ordered by MD. [facility] 22:30 Discharged to home via wheelchair, with family. pf1 22:30 Condition: improved 22:30 Discharge instructions given to patient, family, Instructed on discharge instructions, follow up and referral plans. Demonstrated understanding of instructions, follow-up care, medications, Prescriptions given X 2. 22:38 Patient left the ED. pf1 Signatures: Dispatcher [employer] EDMS Héctor Lopez PA PA Hu Cordero RN RN 3 Tika Childs RN RN pf1 Sybil Ziegler Clarissa, RN RN cm10 Corrections: (The following items were deleted from the chart) 16:27 16:27 PMHx: dialysis tues, thurs, sat, uses o2 when sleeping.; cm10 cm10
--- NOTE | 2022-11-20 21:52 | EDPHYS ---
Physician Documentation [facility] Name: Guzman Mayers Age: 77 yrs Sex: Male : 1945 Arrival Date: 11/20/2022 Time: 15:42 Bed 14 Private MD: [facility] ED Physician Arya Rivera HPI: 11/20 16:29 This 77 yrs old Male presents to ER via Wheelchair with complaints of jmm Constipation, Low Back Pain. 16:29 The patient presents with abdominal pain. Onset: The symptoms/episode began/occurred jmm gradually. Associated signs and symptoms: Pertinent negatives: fever, vomiting. The symptoms are described as achy, crampy. The patient has experienced similar episodes in the past, chronically. Historical: - Allergies: 16:27 Codeine; cm10 16:27 GABAPENTIN; cm10 - PMHx: 16:27 ADD/ADHD; CHF; Diabetes - IDDM; COPD; CKD; Dialysis; MWF; High Cholesterol; HTN; cm10 Hypertension; - Immunization history:: Adult Immunizations unknown. - Social history:: Smoking status: Patient denies any tobacco usage or history of. ROS: 16:29 Constitutional: Negative for fever, chills, and weight loss, Eyes: Negative for injury, jmm pain, redness, and discharge, ENT: Negative for injury, pain, and discharge, Neck: Negative for injury, pain, and swelling, Cardiovascular: Negative for chest pain, palpitations, and edema, Respiratory: Negative for shortness of breath, cough, wheezing, and pleuritic chest pain, Abdomen/GI: Negative for abdominal pain, nausea, vomiting, diarrhea, and constipation, Back: Negative for injury and pain, Skin: Negative for injury, rash, and discoloration, Neuro: Negative for headache, weakness, numbness, tingling, and seizure, Psych: Negative for depression, anxiety, suicide ideation, homicidal ideation, and hallucinations. 16:29 All other systems are negative. Exam: 16:29 Constitutional: This is a well developed, well nourished patient who is awake, alert, jmm and in no acute distress. Head/Face: atraumatic. Eyes: EOMI, no conjunctival erythema appreciated ENT: Moist Mucus Membranes Neck: Trachea midline, Supple Chest/axilla: Normal chest wall appearance and motion. Cardiovascular: Regular rate and rhythm. No edema appreciated Respiratory: Normal respirations, no respiratory distress appreciated Abdomen/GI: Non distended Back: Normal ROM Skin: General appearance color normal MS/ Extremity: Moves all extremities, no obvious deformities appreciated, no edema noted to the lower extremities Neuro: Awake and alert Psych: Behavior is normal, Mood is normal, Patient is cooperative and pleasant Vital Signs: 16:23 BP 142 / 58; Pulse 75; Resp 16; Temp 97.7; Pulse Ox 98% on R/A; Weight 71.67 kg (R); cm10 Height 5 ft. 10 in. (R); Pain 5/10; 20:24 BP 137 / 56; Pulse 56; Resp 17; Pulse Ox 99% on R/A; ll3 16:23 Body Mass Index 22.67 (71.67 kg, 177.8 cm) cm10 16:23 Pain Scale: Adult cm10 MDM: 16:29 Differential diagnosis: constipation, bowel obstruction, colitis. Data reviewed: vital [facility] signs, nurses notes. I considered the following discharge prescriptions or medication management in the emergency department Medications were administered in the Emergency Department. See JUL. 16:41 Patient medically screened. [facility] 23:24 Historians other than the Patient: son. Counseling: I had a detailed discussion with [facility] the patient and/or guardian regarding: the historical points, exam findings, and any diagnostic results supporting the discharge/admit diagnosis, lab results, radiology results, the need for outpatient follow up, to return to the emergency department if symptoms worsen or persist or if there are any questions or concerns that arise at home. Response to treatment: the patient's symptoms have markedly improved after treatment, Patient had a large bowel movement. 11/20 16:40 Order name: CBC with Diff; Complete Time: 17:29 [facility] 11/20 16:40 Order name: CMP; Complete Time: 17:29 [facility] 11/20 16:40 Order name: Lipase; Complete Time: 17:29 [facility] 11/20 16:40 Order name: CT Abd/Pelvis - Without Contrast; Complete Time: 17:35 [facility] 11/20 16:29 Order name: IV Saline Lock; Complete Time: 16:54 cm10 11/20 16:29 Order name: Labs collected and sent; Complete Time: 16:54 cm10 Administered Medications: 20:01 Drug: Magnesium Citrate PO Liquid 300 ml Route: PO; ll3 21:00 Follow up: Response: No adverse reaction; Marked relief of symptoms ll3 21:15 Drug: Fleet Enema [place] 133 ml Route: AK; pf1 21:55 Follow up: Response: No adverse reaction; Marked relief of symptoms ll3 22:00 Drug: Rocephin IV 1 grams Route: IV; Rate: calculated rate; Site: right antecubital; ll3 22:05 Follow up: Response: No adverse reaction; Marked relief of symptoms; IV Status: pf1 Completed infusion; IV Intake: 10ml Disposition Summary: 11/20/22 21:51 Discharge Ordered Location: Home [facility] Condition: Stable [facility] Diagnosis - Constipation jmm - Pneumonia [facility] Followup: [facility] - With: Naveed Fortune, DO - When: 2 - 3 days - Reason: Recheck today's complaints, Continuance of care, Re-evaluation by your physician Discharge Instructions: - Discharge Summary Sheet [facility] - Constipation, Adult jm - Community-Acquired Pneumonia, Adult [facility] Forms: - Medication Reconciliation Form [facility] - Thank You Letter [facility] - Antibiotic Education [facility] - Prescription Opioid Use [facility] Prescriptions: - cefdinir 300 mg Oral capsule - take 1 capsule by ORAL route 2 times per day for 10 days; 20 capsule; Refills: [facility] 0, Product Selection Permitted - Miralax 17 gram Oral powder in packet - take 1 packet by ORAL route 2 times per day; 1 Pack; Refills: 0, Product [facility] Selection Permitted Signatures: Dispatcher [employer] EDHéctor Delcid PA PA jmm Loubet, Lynsea RN RN ll3 Tika Childs RN RN pf1 Chantal Yoon, RN RN cm10 Corrections: (The following items were deleted from the chart) 16:27 16:27 PMHx: dialysis tues, thurs, sat, uses o2 when sleeping.; cm10 cm10
[2022-11-20] MEDS ORDERED: CEFTRIAXONE 1000 MG/VIAL ONE (22:06)
[2022-11-20 23:12] VITALS: TEMP 97.7
[2022-11-20 23:14] VITALS: BP 137/56; O2SAT 99
== END 2022-11-20 22:38 | disposition home or self-care (01) ==
LOC: ER 15:42
DX: K59.00 Constipation, unspecified (principal); J18.9 Pneumonia, unspecified organism; E11.22 Type 2 diabetes mellitus with diabetic chronic kidney disease; I12.0 Hypertensive chronic kidney disease with stage 5 chronic kidney disease or end stage renal disease; N18.6 End stage renal disease; Z99.2 Dependence on renal dialysis; Z88.5 Allergy status to narcotic agent; Z88.8 Allergy status to other drugs, medicaments and biological substances
CPT/HCPCS: 85025; 36415; 83690; 80053; 74176; 96374; 99284; J0696

== ENCOUNTER 2022-11-29 12:02 | Emergency (ER) | payer OTHER, BC ==
--- OUTSIDE RECORDS SUMMARY | 2022-11-29 12:41 | XMS REPORT | Continuity of Care Document ---
:1945 Author Organization [facility] t Address [address] [facility] [address] [place] [address] Care Team Providers Name Role Phone LA FORTUNE Primary Care Physician Unavailable La Fortune Attending Clinician Unavailable [id number] Attending Clinician Unavailable RONNIE AYALA Attending Clinician [...] Velazquez Attending Clinician Pepper Crawford Attending Clinician SANDEEP CRAWFORDFederica QUINTANA Attending Clinician Unavailable MONSE VELAZQUEZ Attending Clinician Unavailable CHILANGO ARMSTRONG NATASHA Attending Clinician Unavailable [id number] Admitting Clinician Unavailable RONNIE AYALA Admitting Clinician Unavailable MINE MOSQUEDA Admitting Clinician Unavailable Mine Mosqueda DO Admitting Clinician ZACHARY BRUNO Admitting Clinician Unavailable Zachary Bruno Admitting Clinician Monse Velazquez Admitting Clinician [phone] MONSE VELAZQUEZ Admitting Clinician Unavailable CHILANGO ARMSTRONG NATASHA Admitting Clinician Unavailable Payers Payer Name Policy Type Policy Effective Date Expiration Date Sour ce Number MEDICARE PART A [id number] 2011 AND B 00:00:00 MEDICARE PART A [id number] 2010 \\T\\ B 00:00:00 BCBS TRADITIONAL [id number] 2014 00:00:00 Blue Cross Blue 6 [id number] 2014 [facility] 00:00:00 - [facility] [id number] BCTX BCTI [id number] MEDICARE NOVITAS [id number] 2011 [facility] 00:00:00 - [facility] MEDICARE NOVITAS [id number] 2011 [facility] 00:00:00 - [facility] MEDICARE NOVITAS [id number] 2011 [facility] 00:00:00 [facility] Problems Condition Condition Condition Status Onset Resolution Last Treating Co mments Source Name Details Category Date Date Treatment Clinician Date E46 E46 Disease Active Univers Unspecifie Unspecifie 5-16 it y of d severe d severe 00:00: [place] protein-ca protein-ca 00 Me dical ajay ajay Branch malnutriti malnutriti on on Elevated Elevated Disease Active Unive rs troponin I troponin I 5-14 it y of level level 00:00: [place] 00 Medical Branch Elevated Elevated Disease Active [...] 5-14 it y of on on 00:00: [place] [facility] Syncope Syncope Disease Active Univers 5-14 ity of 00:00: [place] 00 Medical Branch Anemia Anemia Disease Active Univers associated associated 5-14 it y of with with 00:00: [place] nutritiona nutritiona 00 Me dical l l Branch deficiency deficiency Dyslipidem Dyslipidem Disease Active U nivers ia ia 5-14 ity of 00:00: [place] [facility] Bifascicul Bifascicul Disease Active U nivers ar block ar block 5-14 ity of 00:00: [place] [facility] Atrial Atrial Disease Active Univers flutter flutter 5-14 ity of 00:00: [place] [facility] Branch Encephalop Encephalop Disease Active U nivers athy athy 5-14 ity of 00:00: [place] [facility] Hypoglycem Hypoglycem Disease Active U nivers ia ia 5-13 ity of 00:00: [place] 00 Medical Branch LOW LOW Diagnosis Active [...] BREATHING Y 12-14 17:56:00 l BREATHING 00:00: [place] Active 00 12/14/2021 Kimber Celeste ABNORNAL ABNORNAL Diagnosis Active 2021-12-[address] [facility] LAB LAB Active 12-03 05:50:00 l 12/03/2021 08:00: [facility] 00 [place] ANEMIA, ANEMIA, Diagnosis Active 2021-12-16 Memoria COVID-19 COVID-11-24 05:50:00 l Active 00:00: [place] 11/24/2021 [facility] [place] LOW LOW Diagnosis Active 2021-11-24 Mem oria HEMOGOBLIN HEMOGOBLIN 11-24 23:20:00 l Active 00:00: [place] 11/24/2021 00 [facility] Cellulitis Cellulitis Disease Active U nivers of right of right 12-29 ity of leg leg 00:00: [address] [id number] Other Problem Common obesity Spirit due to - [facility] excess [facility] [id number] Metabolic Problem Com mon syndrome Spirit - [facility] [id number] Body mass Problem Com mon index [facility] [BMI] - [facility] 30.0-30.9, [facility] [id number] Frailty Problem Commo n syndrome Spirit in - [facility] geriatric 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 - [facility] Chronic Chronic Problem Common systolic systolic Spirit heart congestive - [facility]I failure heart failure [facility] [id number] 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 - [facility] [id number] GERD Problem Common without Spirit esophagiti - [facility] s [facility] [id number] Type 2 Problem Common diabetes Spirit mellitus - [facility] with [facility] [id number] Mixed Problem Common hyperlipid Spirit emia - [facility] [id number] Noncomplia Problem Co mmon nce of Spirit patient - [facility] with [facility] Chronic +5th digit Problem Comm on atrial eff Spirit fibrillati 02/28/19*Ch - [facility] on [facility] St (disorder[facility] atrial [facility] [id number] 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 - [facility] with [facility] Chronic Chronic Problem Common obstructiv obstructiv Sp jerome e lung e - CHI disease pulmonary St disease, [facility] unspecifie Medica l d COPD Center type [id number] Heart Problem Common failure, Spirit congestive - CHI , etiology unknown [facility] [id number] Constipati Problem Com mon on, Spirit unspecifie - CHI d St constipati [facility] on [facility] [id number] Memory Problem Common impairment Spirit of gradual - CHI onset [facility] [id number] HTN, goal Problem Comm on below Spirit 130/80 - [facility] [id number] Anemia of Problem Com mon chronic Spirit disease - [facility] [id number] [employer] Problem Com mon (current) Spirit use of - [facility] insulin [facility] [id number] Benign Problem Common prostatic [facility] hyperplasi - CHI a without [facility] urinary Medical tract Center symptoms Hypertroph Obstructiv Problem C ommon ic e Spirit 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 [facility] Hypertensi Hypertensi Problem C ommon ve heart ve chronic Spir it AND kidney - CHI chronic disease St kidney with stage [facility] disease 5 chronic Medica l [...] UNSPECIFIE 05:50:00 l D D Active [place] [facility] [place] History of Past Illness Condition Condition Condition Status Onset Resolution Last Treating Co mments Source Name Details Category Date Date Treatment Clinician Date Anemia, Anemia, Problem 2021-2021-12-06 2021-12-06 Memoria unspecifie unspecifie 12-04 21:45:40 21:45:40 l d d 06:34: [place] 12/04/2021 00 12/06/2021 Apolonia Allergies, Adverse Reactions, [...] Active Unknown Commo n in in [facility] codeine codeine Active Unknown [facility] codeine codeine Active Memoria l [place] gabapent gabapent Active Memori a in in l [place] Social History Social Habit Start Date Stop Date Quantity Comments Source History of tobacco Cigarette Smoker University of use [place] [facility] History SDOH University o f Alcohol Std Drinks [place] [facility] History SDOH University o f Alcohol Binge [place] [facility] al [facility] History SDOH Social Unive rsity of Connections [facility] Med ical Together Branch History SDOH Social Unive rsity of Connections [facility] Medical Branch History SDOH Social Unive rsity of Connections [place] [facility] Membership Branch History SDOH Social Unive rsity of Connections [place] [facility] Meetings Branch Alcohol intake 2022-10-31 2022-10-31 Ex-drinker University of 00:00:00 00:00:00 (finding) [place] [facility] History SDOH 2022-10-12 2022-10-12 1 University o f Alcohol Frequency 00:00:00 00:00:00 [facility] edical Branch History SDOH Social 2022-10-12 2022-10-12 5 Unive rsity of Connections Phone 00:00:00 00:00:00 [facility] edical Branch History SDOH Social 2022-10-12 2022-10-12 3 Unive rsity of Connections Living 00:00:00 00:00:00 [place] [facility] History SDSD 2022-10-12 2022-10-12 0 University o f Physical Activity 00:00:00 00:00:00 [place] [facility] DPW Branch History SDOH 2022-10-12 2022-10-12 0 University o f Physical Activity 00:00:00 00:00:00 [place] M [facility] MPS Branch History SDOH 2022-10-12 2022-10-12 5 University o f Financial 00:00:00 00:00:00 [place] [facility] History SDOH Food 2022-10-12 2022-10-12 1 Univers ity of Worry 00:00:00 00:00:00 [place] [facility] History SDOH Food 2022-10-12 2022-10-12 1 Univers ity of Scarcity 00:00:00 00:00:00 [place] [facility] History SDOH 2022-10-12 2022-10-12 2 University o f Transport Med 00:00:00 00:00:00 [place] Medic al Branch History SDSD 2022-10-12 2022-10-12 2 University o f Transport Non-Med 00:00:00 00:00:00 [place] M edical Branch History SDOH 2022-10-12 2022-10-12 2 University o f Housing Unable to 00:00:00 00:00:00 [place] M [facility] Pay Branch History SDSD 2022-10-12 2022-10-12 1 University o f Housing Places 00:00:00 00:00:00 [place] Medi yahaira Lived Branch History SDSD 2022-10-12 2022-10-12 2 University o f Housing Homeless 00:00:00 00:00:00 [place] Me dical Last Year Branch Tobacco use [...] [birth year] Universit y of 00:00:00 00:00:00 [facility] Smoking Status Start Date Stop Date Source Social History 2021-12-04 02:37:37 2021-12-04 02:37:37 [facility] Medications Ordered Filled Start Stop Current Ordering Indication Dosage Frequency Signature Comments Components Source Medication Medication Date Date Medication? Clinician (SIG) Name Name aspirin 81 Yes [id number] 81mg Take 1 Univers mg EC 5-19 tablet by ity of tablet 00:00: mouth in [place] 00 the Medical morning. Branch aspirin 81 Yes [id number] 81mg Take 1 Univers mg EC 5-19 tablet by ity of tablet 00:00: mouth in [place] 00 the Medical morning. Branch aspirin 81 0 Yes [id number] 81mg Take 1 Univers mg EC 5-19 tablet by ity of tablet 00:00: mouth in [place] 00 the Medical morning. Branch citalopram Yes 20mg Take 1 Unive rs 20 mg 5-18 tablet by ity of tablet 14:40: mouth in [place] [address] the Medical morning. Branch atorvastati Yes 40mg Take 40 mg Univers n (LIPITOR) 5-18 by mouth ity of 40 mg 14:40: at [facility] 23 bedtime. Medical Branch MULTIVITAMI Yes 1{tbl} Take 1 Tab Univers NS WITH 5-18 by mouth ity of EXTRA C 14:40: daily. [place] [address] Medical Branch citalopram Yes 20mg Take 1 Unive rs 20 mg 5-18 tablet by ity of tablet 14:40: mouth in [place] [address] the Medical morning. Branch atorvastati Yes 40mg Take 40 mg Univers n (LIPITOR) 5-18 by mouth ity of 40 mg 14:40: at [facility] 23 bedtime. Medical Branch MULTIVITAMI Yes 1{tbl} Take 1 Tab Univers NS WITH 5-18 by mouth ity of EXTRA C 14:40: daily. [address] Branch citalopram Yes 20mg Take 1 Unive rs 20 mg 5-18 tablet by ity of tablet 14:40: mouth in [place] [address] the Medical morning. Branch atorvastati Yes 40mg Take 40 mg Univers n (LIPITOR) 5-18 by mouth ity of 40 mg 14:40: at [place] tablet 23 bedtime. Medical Branch MULTIVITAMI Yes [...] ity of tablet 12:58: 00:00 mouth in [place] 33 :00 the Medical morning. Branch spironolact 2022- No 25mg Take 25 mg Univers one 5-18 05-18 by mouth ity of (SPIRONOLAC 12:58: 00:00 daily. [place] as TONE) 25 mg 33 :00 Medical tablet Branch INSULIN 2022- No 52U inject 52 Univ ers GLARGINE,HU 5-18 05-18 Units ity of M.REC.ANLOG 12:58: 00:00 under the [place] (LANTUS 33 :00 skin every Medica l SOLOSTAR morning. Branch HI) carvediloL Yes [id number] 6.25mg Take 1 Univers 6.25 mg 5-18 tablet by ity of tablet 00:00: mouth in [place] 00 the Medical morning Branch and 1 tablet in the evening. Take with meals. pantoprazol Yes [id number] 40mg Take 1 Univers e 40 mg EC 5-18 tablet by ity of tablet 00:00: mouth in [place] 00 the Medical morning. Branch carvediloL Yes [id number] 6.25mg Take 1 Univers 6.25 mg 5-18 tablet by ity of tablet 00:00: mouth in [place] the morning Branch and 1 tablet in the evening. Take with meals. pantoprazol Yes [id number] 40mg Take 1 Univers e 40 mg EC 5-18 tablet by ity of tablet 00:00: mouth in [place] the morning. Branch carvediloL Yes [id number] 6.25mg Take 1 Univers 6.25 mg 5-18 tablet by ity of tablet 00:00: mouth in [place] the morning Branch and 1 tablet in the evening. Take with meals. pantoprazol Yes [id number] 40mg Take 1 Univers e 40 mg EC 5-18 tablet by ity of tablet 00:00: mouth in [place] the morning. Branch amoxicillin 2022- Yes [id number] 500mg Take 1 Univers -pot 5-18 05-26 tablet by ity of clavulanate 00:00: 04:59 [place] 500 mg 00 :00 every 24 Medical (AUGMENTIN) (twenty-fo Br anch 500-125 mg ur) hours tablet for 7 days. amoxicillin 2022- Yes [id number] 500mg Take 1 Univers -pot 5-18 05-26 tablet by ity of clavulanate 00:00: 04:59 [place] 500 mg 00 :00 every 24 Medical (AUGMENTIN) (twenty-fo Br anch 500-125 mg ur) hours tablet for 7 days. FENTanyl PF Yes 25ug 25 mcg, Uni vers (SUBLIMAZE 5-17 Slow IV ity of (PF)) 11:05: Push, [place] injection 22 Q6HPRN, Medical 25 mcg Starting Branch on Wed10/14/22 at 0605, Until Discontinu ed, Routine, Pain (scale 4-6) FENTanyl PF 2022- No 12.5ug 12.5 mcg, Univers (SUBLIMAZE 5-17 05-17 Slow IV ity o f (PF)) 08:07: 11:05 Push, [place] injection 00 :38 Q6HPRN, Medical 12.5 mcg [...] Yes 5mg 5 mg, Univer s (NORVASC) 10-13 Oral, ity of tablet 5 mg 20:15: [...] 0; SBP=>180, For SBP > 160 ampicillin- 2022-2022- No 3g 3 g, IV Un arnie [...] Blood<br&g t;Duration of Therapy: 7 days methocarbam 0 Yes 750mg 750 mg, Un arnie oL 5-15 Oral, ity of (ROBAXIN) 13:06: TIDPRN, [place] tablet 750 58 Starting Medic al mg on [facility] 10/12/22 at 0806, Until Discontinu ed, Routine, Muscle Spasms atorvastati 0 Yes 40mg 40 mg, Univ ers n (LIPITOR) 5-15 Oral, QHS, it y of tablet 40 02:00: First dose [place] mg 00 on [facility] 10/11/22 at Branch 2100, Until Discontinu ed, Routine docusate Yes 100mg 100 mg, Unive rs (COLACE) 5-15 Oral, BID, ity o f capsule 100 01:30: First dose [place] mg 00 on [facility] 10/11/22 at Branch 2030, Until Discontinu ed, Routine aspirin EC Yes 81mg 81 mg, Unive rs tablet 81 5-14 Oral, ity of mg 14:00: DAILY, [place] 00 First dose Medical on [facility] 10/11/22 at 0900, Until Discontinu ed, Routine pantoprazol 0 Yes 40mg 40 mg, Univ ers e 5-14 Oral, ity of (PROTONIX) 14:00: DAILY, [place] EC tablet 00 First dose Medi yahaira 40 mg on [facility] 10/11/22 at 0900, Until Discontinu ed, Routine citalopram 0 Yes 20mg 20 mg, Unive rs (CELEXA) 5-14 Oral, ity of tablet 20 14:00: DAILY, [place] mg 00 First dose Medical on [facility] 10/11/22 at 0900, Until Discontinu ed, Routine azithromyci 2022- No 500mg 500 mg, U nivers [...] No 1000mL at 75 Univ ers NaCl -14 05-14 mL/hr, ity of (1/2NS) IV 01:30: [...] 100 UNIT/ML 00:00: 100 00 UNIT/ML aspirin No Notes: Do Memor ia 7-20 not crush l 14:00: or chew. [place] 00 (Same As: Ecotrin) Procardia No Notes: Memori a XL 30 mg 7-20 (Same as: l oral 14:00: Adalat CC, [place] tablet, 00 Procardia extended XL) Give release on empty stomach. Take 1 hour before or 2 hours after meal; "Avoid grapefruit and grapefruit juice". Do not crush Epogen No Notes: Memoria (ESRD) 7-20 Same as: l 14:00: Retacrit) [place] 00 epoetin shannon-epbx 82265 unit/1 ml VL. For dialysis use only. WASTE: F/P - Red; E Red MEDICATION WASTE Product Size: 94157 unit Product Wasted: ___ unit aspirin No Notes: Do Memor ia 7-20 not crush l 14:00: or chew. [place] 00 (Same As: Ecotrin) Procardia No Notes: Memori a XL 30 mg 7-20 (Same as: l oral 14:00: Adalat CC, [place] tablet, 00 Procardia extended XL) Give release on empty stomach. Take 1 hour before or 2 hours after meal; "Avoid grapefruit and grapefruit juice". Do not crush Epogen No Notes: Memoria (ESRD) 7-20 Same as: l 14:00: Retacrit) [place] 00 epoetin shannon-epbx 34700 unit/1 ml VL. For dialysis use only. WASTE: F/P - Red; E Red MEDICATION WASTE Product Size: 09865 unit Product Wasted: ___ unit aspirin No Notes: Do Memor ia 7-20 not crush l 14:00: or chew. [place] 00 (Same As: Ecotrin) Procardia No Notes: Memori a XL 30 mg 7-20 (Same as: l oral 14:00: Adalat CC, [place] tablet, 00 Procardia extended XL) Give release on empty stomach. Take 1 hour before or 2 hours after meal; "Avoid grapefruit and grapefruit juice". Do not crush Epogen No Notes: Memoria (ESRD) 7-20 Same as: l 14:00: Retacrit) [place] 00 epoetin shannon-epbx 96605 unit/1 ml VL. For dialysis use only. WASTE: F/P - Red; E Red MEDICATION WASTE Product Size: 61884 unit Product Wasted: ___ unit aspirin No Notes: Do Memor ia 7-20 not crush l 14:00: or chew. [place] 00 (Same As: Ecotrin) Procardia No Notes: Memori a XL 30 mg 7-20 (Same as: l oral 14:00: Adalat CC, [place] tablet, 00 Procardia extended XL) Give release on empty stomach. Take 1 hour before or 2 hours after meal; "Avoid grapefruit and grapefruit juice". Do not crush Epogen No Notes: Memoria (ESRD) 7-20 Same as: l 14:00: Retacrit) [place] 00 epoetin shannon-epbx 44258 unit/1 ml VL. For dialysis use only. WASTE: F/P - Red; E Red MEDICATION WASTE Product Size: 52707 unit Product Wasted: ___ unit aspirin No Notes: Do Memor ia 7-20 not crush l 14:00: or chew. [place] 00 (Same As: Ecotrin) Procardia No Notes: Memori a XL 30 mg 7-20 (Same as: l oral 14:00: Adalat CC, [place] tablet, 00 Procardia extended XL) Give release on empty stomach. Take 1 hour before or 2 hours after meal; "Avoid grapefruit and grapefruit juice". Do not crush Epogen No Notes: Memoria (ESRD) 7-20 Same as: l 14:00: Retacrit) [place] 00 epoetin shannon-epbx 76351 unit/1 ml VL. For dialysis use only. WASTE: F/P - Red; E Red MEDICATION WASTE Product Size: 27690 unit Product Wasted: ___ unit aspirin No Notes: Do Memor ia 7-20 not crush l 14:00: or chew. [place] 00 (Same As: Ecotrin) Procardia No Notes: Memori a XL 30 mg 7-20 (Same as: l oral 14:00: Adalat CC, [place] tablet, 00 Procardia extended XL) Give release on empty stomach. Take 1 hour before or 2 hours after meal; "Avoid grapefruit and grapefruit juice". Do not crush Epogen No Notes: Memoria (ESRD) 7-20 Same as: l 14:00: Retacrit) [place] 00 epoetin shannon-epbx 23647 unit/1 ml VL. For dialysis use only. WASTE: F/P - Red; E Red MEDICATION WASTE Product Size: 85955 unit Product Wasted: ___ unit aspirin No Notes: Do Memor ia 7-20 not crush l 14:00: or chew. [place] 00 (Same As: Ecotrin) Procardia No Notes: Memori a XL 30 mg 7-20 (Same as: l oral 14:00: Adalat CC, [place] tablet, 00 Procardia extended XL) Give release on empty stomach. Take 1 hour before or 2 hours after meal; "Avoid grapefruit and grapefruit juice". Do not crush Epogen No Notes: Memoria (ESRD) 7-20 Same as: l 14:00: Retacrit) [place] 00 epoetin shannon-epbx 65307 unit/1 ml VL. For dialysis use only. WASTE: F/P - Red; E Red MEDICATION WASTE Product Size: 69257 unit Product Wasted: ___ unit aspirin No Notes: Do Memor ia 7-20 not crush l 14:00: or chew. [place] 00 (Same As: Ecotrin) Procardia No Notes: Memori a XL 30 mg 7-20 (Same as: l oral 14:00: Adalat CC, [place] tablet, 00 Procardia extended XL) Give release on empty stomach. Take 1 hour before or 2 hours after meal; "Avoid grapefruit and grapefruit juice". Do not crush Epogen No Notes: Memoria (ESRD) 7-20 Same as: l 14:00: Retacrit) [place] 00 epoetin shannon-epbx 52775 unit/1 ml VL. For dialysis use only. WASTE: F/P - Red; E Red MEDICATION WASTE Product Size: 22278 unit Product Wasted: ___ unit Lipitor No Notes: Memoria 7-20 (Same as: l 02:00: Lipitor) [place] 00 Lipitor No Notes: Memoria 7-20 (Same as: l 02:00: Lipitor) [place] 00 Lipitor 0 No Notes: Memoria 7-20 (Same as: l 02:00: Lipitor) [place] 00 Lipitor 0 No Notes: Memoria 7-20 (Same as: l 02:00: Lipitor) [place] 00 Lipitor No Notes: Memoria 7-20 (Same as: l 02:00: Lipitor) [place] 00 Lipitor No Notes: Memoria 7-20 (Same as: l 02:00: Lipitor) [place] Lipitor No Notes: Memoria 7-20 (Same as: [...] day, # 3 tab, 0 Refill(s), Pharmacy: [facility] #[id number], 177.8, cm, 12/14/21 22:03:00 CDT, Height, 95.2, kg, 12/14/21 22:03:00 CDT, Weight dexamethaso Yes 6 mg = 1 Me moria ne 6 mg 7-19 tab, PO, l oral tablet 21:19: Daily, X 3 [place] 00 day, # 3 tab, 0 Refill(s), Pharmacy: [facility] #[id number], 177.8, cm, 12/14/21 22:03:00 CDT, Height, 95.2, kg, 12/14/21 22:03:00 CDT, Weight dexamethaso 2022-0 Yes 6 mg = 1 Me moria ne 6 mg 7-19 tab, PO, l oral tablet 21:19: Daily, X 3 [place] 00 day, # 3 tab, 0 Refill(s), Pharmacy: [facility] #[id number], 177.8, cm, 12/14/21 22:03:00 CDT, Height, 95.2, kg, 12/14/21 22:03:00 CDT, Weight dexamethaso 2022-0 Yes 6 mg = 1 Me moria ne 6 mg 7-19 tab, PO, l oral tablet 21:19: Daily, X 3 [place] 00 day, # 3 tab, 0 Refill(s), [id number], 177.8, cm, 12/14/21 22:03:00 CDT, Height, 95.2, kg, 12/14/21 22:03:00 CDT, Weight dexamethaso 2022-0 Yes 6 mg = 1 Me moria ne 6 mg 7-19 tab, PO, l oral tablet 21:19: Daily, X 3 [place] 00 day, # 3 tab, 0 Refill(s), [id number], 177.8, cm, 12/14/21 22:03:00 CDT, Height, 95.2, kg, 12/14/21 22:03:00 CDT, Weight dexamethaso 2022-0 Yes 6 mg = 1 Me moria ne 6 mg 7-19 tab, PO, l oral tablet 21:19: Daily, X 3 [place] 00 day, # 3 tab, 0 Refill(s), Pharmacy: [facility] #[id number], 177.8, cm, 12/14/21 22:03:00 CDT, Height, 95.2, kg, 12/14/21 22:03:00 CDT, Weight dexamethaso 2022-0 Yes 6 mg = 1 Me moria ne 6 mg 7-19 tab, PO, l oral tablet 21:19: Daily, X 3 [place] 00 day, # 3 tab, 0 Refill(s), Pharmacy: [facility] #[id number], 177.8, cm, 12/14/21 22:03:00 CDT, Height, 95.2, kg, 12/14/21 22:03:00 CDT, Weight dexamethaso 2021-0 Yes 6 mg = 1 Me moria ne 6 mg 7-19 tab, PO, l oral tablet 21:19: Daily, X 3 [place] , # 3 tab, 0 Refill(s), Pharmacy: [facility] #[id number], 177.8, cm, 12/14/21 22:03:00 CDT, Height, [...] 7-19 tab, PO, l tablet 20:29: Bedtime, [place] 00 PRN for insomnia, # 14 tab, 0 Refill(s) melatonin 3 2021-0 Yes 3 mg = 1 Me moria mg oral 7-19 tab, PO, l tablet 20:29: Bedtime, [place] 00 PRN for insomnia, # 14 tab, [...] 7-19 tab, PO, l tablet 20:29: Bedtime, [place] 00 PRN for insomnia, # 14 tab, [...] 7-19 tab, PO, l tablet 20:29: Bedtime, [place] 00 PRN for insomnia, # 14 tab, [...] l oral tablet 20:27: Q12H, # 60 [place] 00 tab, 0 Refill(s) bisacodyl 5 Yes 10 mg = 2 M emoria mg oral 7-19 tab, PO, l enteric 20:27: Daily, PRN Herm silas coated 00 Constipati tablet on, # 20 tab, 0 Refill(s) carvedilol Yes 12.5 mg = Me moria 12.5 mg 7-19 1 tab, PO, l oral tablet 20:27: Q12H, # 60 [place] 00 tab, 0 Refill(s) bisacodyl 5 0 Yes 10 mg = 2 M emoria mg oral 7-19 tab, PO, l enteric 20:27: Daily, PRN Herm silas coated 00 Constipati tablet on, # 20 tab, 0 Refill(s) carvedilol Yes 12.5 mg = Me moria 12.5 mg 7-19 1 tab, PO, l oral tablet 20:27: Q12H, # 60 [place] 00 tab, 0 Refill(s) bisacodyl 5 0 Yes 10 mg = 2 M emoria mg oral 7-19 tab, PO, l enteric 20:27: Daily, PRN Herm silas coated 00 Constipati tablet on, # 20 tab, 0 Refill(s) carvedilol Yes 12.5 mg = Me moria 12.5 mg 7-19 1 tab, PO, l oral tablet 20:27: Q12H, # 60 [place] 00 tab, 0 Refill(s) bisacodyl 5 Yes [...] l oral tablet 20:27: Q12H, # 60 [place] 00 tab, 0 Refill(s) bisacodyl 5 0 Yes 10 mg = 2 M emoria mg oral 7-19 tab, PO, l enteric 20:27: Daily, PRN Herm silas coated 00 Constipati tablet on, # 20 tab, 0 Refill(s) carvedilol Yes 12.5 mg = Me moria 12.5 mg 7-19 1 tab, PO, l oral tablet 20:27: Q12H, # 60 [place] 00 tab, 0 Refill(s) bisacodyl 5 0 Yes 10 mg = 2 M emoria mg oral 7-19 tab, PO, l enteric 20:27: Daily, PRN Herm silas coated 00 Constipati tablet on, # 20 tab, 0 Refill(s) bisacodyl 5 Yes 10 mg = 2 M emoria mg oral 12-16 tab, PO, l enteric 20:27: Daily, PRN Herm silas coated 00 Constipati tablet on, # 20 tab, 0 Refill(s) carvedilol Yes 12.5 mg = Me moria 12.5 mg 12-16 1 tab, PO, l oral tablet 20:27: Q12H, # 60 [place] 00 tab, 0 Refill(s) aspirin 81 Yes 81 mg = 1 Me moria mg tablet, 12-16 tab, PO, l enteric 20:26: Daily, # Thomas n coated 00 90 tab, 3 Refill(s) aspirin 81 Yes 81 mg = 1 Me moria mg tablet, 12-16 tab, PO, l enteric 20:26: Daily, # Thomas n coated 00 90 tab, 3 Refill(s) aspirin 81 2021-0 Yes 81 mg = 1 Me moria mg tablet, 12-16 tab, PO, l enteric 20:26: Daily, # Thomas n coated 00 90 tab, 3 Refill(s) aspirin 81 2021-0 Yes 81 mg = 1 Me moria mg tablet, - tab, PO, l enteric 20:26: Daily, # Thomas n coated 00 90 tab, 3 Refill(s) aspirin 81 2021-0 Yes 81 mg = 1 Me moria mg tablet, - tab, PO, l enteric 20:26: Daily, # Thomas n coated 00 90 tab, 3 Refill(s) aspirin 81 2021-0 Yes 81 mg = 1 Me moria mg tablet, - tab, PO, l enteric 20:26: Daily, # Thomas n coated 00 90 tab, 3 Refill(s) aspirin 81 2021-0 Yes 81 mg = 1 Me moria mg tablet, - tab, PO, l enteric 20:26: Daily, # Thomas n coated 00 90 tab, 3 Refill(s) aspirin 81 2021-0 Yes 81 mg = 1 Me moria mg tablet, -19 tab, PO, l enteric 20:26: Daily, # [...] a 7-19 Same as: l 13:00: Renvela [place] 00 sevelamer 0 No Notes: Memori a 7-19 Same as: l 13:00: Renvela [place] 00 sevelamer 0 No Notes: Memori a 7-19 Same as: l 13:00: Renvela [place] sevelamer No Notes: Memori a 12-16 Same as: l 13:00: Renvela [place] sevelamer No Notes: Memori a 12-16 Same as: l 13:00: Renvela [place] sevelamer No Notes: Memori a 12-16 Same as: l 13:00: Renvela [place] sevelamer No Notes: Memori a 12-16 Same as: l 13:00: Renvela [place] sevelamer No Notes: Memori a 12-16 Same as: l 13:00: Renvela [place] albumin Yes Notes: Na mercado 25% 12-16 #: l intravenous 02:33: [place] solution ___ Mfg: (Same as: Plasbumin- 25) "blood product derivative " WASTE: F/P - Red; E -Red MEDICATION WASTE Product Size: 25 gm Product Wasted: ___ gm albumin Yes Notes: Na mercado 25% 12-16 #: l intravenous 02:33: [place] solution ___ Mfg: (Same as: Plasbumin- 25) "blood product derivative " WASTE: F/P - Red; E -Red MEDICATION WASTE Product Size: 25 gm Product Wasted: ___ gm albumin Yes Notes: Lot Heath mercado 25% 12-16 #: l intravenous 02:33: [place] solution ___ Mfg: (Same as: Plasbumin- 25) "blood product derivative " WASTE: F/P - Red; E -Red MEDICATION WASTE Product Size: 25 gm Product Wasted: ___ gm albumin Yes Notes: Na mercado 25% 12-16 #: l intravenous 02:33: [place] solution ___ Mfg: (Same as: Plasbumin- 25) "blood product derivative " WASTE: F/P - Red; E -Red MEDICATION WASTE Product Size: 25 gm Product Wasted: ___ gm albumin Yes Notes: Na mercado 25% 12-16 #: l intravenous 02:33: [place] solution ___ Mfg: (Same as: Plasbumin- 25) "blood product derivative " WASTE: F/P - Red; E -Red MEDICATION WASTE Product Size: 25 gm Product Wasted: ___ gm albumin Yes Notes: Na mercado 25% 12-16 #: l intravenous 02:33: [place] solution ___ Mfg: (Same as: Plasbumin- 25) [...] mercado 25% 12-16 #: l intravenous 02:33: [place] solution ___ Mfg: (Same as: Plasbumin- 25) [...] 00 IV) mL azithromyci No Notes: Heath bboo n + Sodium 7-18 (Same As: l [...] ne 7-18 Give with l 14:00: food. [place] 00 dexamethaso No Notes: Heath bobo ne 7-18 Give with l 14:00: food. [place] 00 dexamethaso No Notes: Heath bobo ne 7-18 Give with l 14:00: food. [place] 00 dexamethaso No Notes: Heath bobo ne 7-18 Give with l 14:00: food. albuterol-i No Notes: Heath bobo pratropium 7-18 Same as: l 13:00: Combivent [place] 00 Respimat WASTE: Aerosol - Return to Pharmacy albuterol-i No Notes: Heath bobo pratropium 7-18 Same as: l 13:00: Combivent [place] Respimat WASTE: Aerosol - Return to Pharmacy albuterol-i No Notes: Heath bobo pratropium 7-18 Same as: l 13:00: Combivent [place] Respimat WASTE: Aerosol - Return to Pharmacy albuterol-i No Notes: Heath bobo pratropium 7-18 Same as: l 13:00: Combivent [place] Respimat WASTE: Aerosol - Return to Pharmacy albuterol-i No Notes: Heath boob pratropium 7-18 Same as: l 13:00: Combivent [place] 00 Respimat WASTE: Aerosol - Return to [...] WASTE: Aerosol - Return to Pharmacy heparin 2021-0 No 5,000 Memoria 7-18 unit, l 05:00: Route: [place] 00 SUB-Q, Q8H, Dosing Weight 95.455, kg, Start date: 12/15/21 0:00:00 CDT, Stop date: 01/13/22 16:00:00 CDT heparin 2-0 No 5,000 Memoria 7-18 unit, l 05:00: Route: [place] 00 SUB-Q, Q8H, Dosing Weight 95.455, kg, Start date: 12/15/21 0:00:00 CDT, Stop date: 01/13/22 16:00:00 CDT heparin 2-0 No 5,000 Memoria 7-18 unit, l 05:00: Route: [place] SUB-Q, Q8H, Dosing Weight 95.455, kg, Start date: 12/15/21 0:00:00 CDT, Stop date: 01/13/22 16:00:00 CDT heparin 2-0 No 5,000 Memoria 7-18 unit, l 05:00: Route: [place] SUB-Q, Q8H, Dosing Weight 95.455, kg, Start date: 12/15/21 0:00:00 CDT, Stop date: 01/13/22 16:00:00 CDT heparin 2-0 No 5,000 Memoria 7-18 unit, l 05:00: Route: [place] SUB-Q, Q8H, Dosing Weight 95.455, kg, Start date: 12/15/21 0:00:00 CDT, Stop date: 01/13/22 16:00:00 CDT heparin 2022-0 No 5,000 Memoria 7-18 unit, l 05:00: Route: [place] SUB-Q, Q8H, Dosing Weight 95.455, kg, Start date: 12/15/21 0:00:00 CDT, Stop date: 01/13/22 16:00:00 CDT heparin 2022-0 No 5,000 Memoria 7-18 unit, l 05:00: Route: [place] SUB-Q, Q8H, Dosing Weight 95.455, kg, Start date: 12/15/21 0:00:00 CDT, Stop date: 01/13/22 16:00:00 CDT heparin No 5,000 Memoria 7-18 unit, l 05:00: Route: [place] 00 SUB-Q, Q8H, Dosing Weight 95.455, kg, Start date: 12/15/21 0:00:00 CDT, Stop date: 01/13/22 16:00:00 CDT heparin No Notes: Memoria 7-18 porcine l 02:00: heparin [place] heparin No Notes: Memoria 7-18 porcine l 02:00: heparin [place] heparin No Notes: Memoria 7-18 porcine l 02:00: heparin [place] heparin No Notes: Memoria 7-18 porcine l 02:00: heparin [place] heparin No Notes: Memoria 7-18 porcine l 02:00: heparin [place] heparin No Notes: Memoria 7-18 porcine l 02:00: heparin [place] 00 heparin No Notes: Memoria 7-18 porcine l 02:00: heparin [place] 00 heparin No Notes: Memoria 7-18 porcine [...] Rate: 999 l Water IV 23:57: ml/hr, [place] Infuse over: 0.1 hr, Route: IV, Total [...] Rate: 999 l Water IV 23:57: ml/hr, [place] 00 Infuse over: 0.1 hr, Route: IV, Total Volume: 125, Start date: 12/14/21 18:57:00 CDT, Duration: 30 day, Stop date: 01/13/22 18:56:00 CDT, PRN Blood Glucose Results, 0 Dextrose 2022-0 No 125 mL, Memori a 10% in 12-14 Rate: 999 l Water IV 23:57: ml/hr, [place] 00 Infuse over: 0.1 hr, Route: IV, [...] Rate: 999 l Water IV 23:57: ml/hr, [place] 00 Infuse over: 0.1 hr, Route: IV, [...] Rate: 999 l Water IV 23:53: ml/hr, [place] 00 Infuse over: 0.3 hr, Route: IV, Total Volume: 250, Start date: 12/14/21 18:53:00 CDT, Duration: 30 day, Stop date: 01/13/22 18:52:00 CDT, PRN Blood Glucose Results, 0 Dextrose No 250 mL, Memori a 10% in 12-14 Rate: 999 l Water IV 23:53: ml/hr, [place] 00 Infuse over: 0.3 hr, Route: IV, [...] Pharmacy 12-14 Vancomycin l Dosing 23:36: Pharmacy [place] Consult 47 Dosing Protocol PHARMAC Y USE ONLY Note: This is not a medication order. This is a consultati on order. [facility]com[facility] No [facility] l Dosing [...] Pharmacy 12-14 Vancomycin l Dosing 23:36: Pharmacy [place] Consult 47 Dosing Protocol PHARMAC Y USE ONLY Note: This is not a medication order. This is a consultati on order. Vancomycin No Notes: [facility] 12-14 Vancomycin l Dosing 23:36: Pharmacy [place] Consult 47 Dosing Protocol PHARMAC Y USE ONLY Note: This is not a medication order. This is a consultati on order. Vancomycin No Notes: [facility] 12-14 Vancomycin l Dosing 23:36: Pharmacy [place] Consult 47 Dosing Protocol PHARMAC Y USE ONLY Note: This is not a medication order. This is a consultati on order. Vancomycin No Notes: [facility] 12-14 Vancomycin l Dosing 23:36: Pharmacy [place] Consult 47 Dosing Protocol PHARMAC Y USE [...] 1.4% 7-17 Chlorasept l spray 23:30: ic Winnie (Same as: Chlorasept ic, Sore Throat Winnie) WASTE: F/P - Black; E - Municipal [...] 7-17 (Same as: l tablet 23:30: Pepcid) [place] 5/325 No Notes: Heath bobo oral tablet 7-17 (Same as: l 23:30: [place] 00 325/5) Do not exceed 4gm/day of [...] MINE 7-17 tab, l 23:30: Route: PO, [place] 00 Drug form: TAB, Q6H, Dosing Weight [...] 1.4% 7-17 Chlorasept l spray 23:30: ic Winnie (Same as: Chlorasept ic, Sore Throat Winnie) WASTE: F/P - Black; E - Municipal [...] 7-17 (Same as: l tablet 23:30: Pepcid) [place] 5/325 No Notes: Heath bobo oral tablet 7-17 (Same as: l 23:30: [place] 00 325/5) Do not exceed 4gm/day [...] No 25 mg, 1 Me moria MINE -17 tab, l 23:30: Route: PO, Drug form: TAB, Q6H, Dosing Weight 95.455, kg, PRN Itching, Start date: 12/14/21 18:30:00 CDT, Duration: 30 day, Stop date: 01/13/22 18:29:00 CDT, 0 acetaminoph No Notes: Do M emoria en - not exceed l 23:30: 4 gm/day. (Same as: Tylenol) albuterol-i No Notes: Heath bobo pratropium -17 (Same as: l 2.5-0.5 mg 23:30: Duoneb) inhalation solution Chlorasepti No Notes: Heath bobo c 1.4% -17 Chlorasept l spray 23:30: ic Winnie (Same as: Chlorasept ic, Sore Throat Winnie) WASTE: F/P - Black; E - Municipal [...] 7-17 (Same as: l tablet 23:30: Pepcid) [place] 5/325 No Notes: Heath bobo oral tablet 7-17 (Same as: l 23:30: [place] 00 325/5) Do not exceed 4gm/day of [...] 1.4% 7-17 Chlorasept l spray 23:30: ic [place] (Same as: Chlorasept ic, Sore Throat Winnie) WASTE: F/P - Black; E - Municipal [...] 7-17 (Same as: l tablet 23:30: Pepcid) [place] 5/325 No Notes: Heath bobo oral tablet 7-17 (Same as: l 23:30: [place] 00 325/5) Do not exceed 4gm/day of [...] 1.4% 7-17 Chlorasept l spray 23:30: ic [place] (Same as: Chlorasept ic, Sore Throat Winnie) WASTE: F/P - Black; E - Municipal [...] 7-17 (Same as: l tablet 23:30: Pepcid) [place] 5/325 No Notes: Heath bobo oral tablet 7-17 (Same as: l 23:30: [place] 325/5) Do not exceed 4gm/day of acetaminop [...] 1.4% 7-17 Chlorasept l spray 23:30: ic [place] (Same as: Chlorasept ic, Sore Throat Winnie) WASTE: F/P - Black; E - Municipal [...] 23:30: 4 gm/day. [place] (Same as: Tylenol) Pepcid 20 No Notes: Memori a mg oral 7-17 (Same as: l tablet 23:30: Pepcid) albuterol-i No Notes: Heath bobo pratropium 7-17 (Same as: l 2.5-0.5 mg 23:30: Duoneb) silas inhalation solution Chlorasepti No Notes: Heath bobo c 1.4% 7-17 Chlorasept l spray 23:30: ic [place] (Same as: Chlorasept ic, Sore Throat Winnie) WASTE: F/P - Black; E - Municipal [...] 7-17 (Same as: l tablet 23:30: Pepcid) [place] 5/325 No Notes: Heath bobo oral tablet 7-17 (Same as: l 23:30: [place] 00 325/5) Do not exceed 4gm/day of acetaminop hen. morphine No 1 mg, 0.5 Heath bobo Sulfate 7-17 mL, Route: l 23:30: IVP, Drug form: SOLN, Q4H, Dosing Weight 95.455, kg, PRN Pain Score 7-10, Start date: 12/14/21 18:30:00 CDT, Duration: 30 day, Stop date: 01/13/22 18:29:00 CDT, 0 [place] 5/325 No Notes: Heath bobo oral tablet 7-17 (Same as: l 23:30: [place] 325/5) Do not exceed 4gm/day of acetaminop [...] No 25 mg, 1 Me moria MINE -17 tab, l 23:30: Route: PO, Drug form: [...] Chlorasepti No Notes: Heath bobo c 1.4% -17 Chlorasept l spray 23:30: ic [place] (Same as: Chlorasept ic, Sore Throat Winnie) WASTE: F/P - Black; E - Municipal [...] 7-17 (Same as: l tablet 23:30: Pepcid) [place] 5/325 No Notes: Heath bobo oral tablet 7-17 (Same as: l 23:30: [place] 325/5) Do not exceed 4gm/day of acetaminop [...] 7-17 Route: IM, l 23:29: Drug form: [place] 00 PDR/INJ, PRN, Dosing Weight 95.455, kg, [...] Syringe 7-17 Route: l (D50W) 23:29: IVP, [place] 00 Dosing Weight 95.455, kg, PRN, PRN Blood Glucose Results, Start date: 12/14/21 18:29:00 CDT, Duration: 30 day, Stop date: 01/13/22 18:28:00 CDT glucagon 2-0 No 1 mg, Memoria 7-17 Route: IM, l 23:29: Drug form: [place] 00 PDR/INJ, PRN, Dosing Weight 95.455, kg, PRN Blood Glucose Results, Start date: 12/14/21 18:29:00 CDT, Duration: 30 day, Stop date: 01/13/22 18:28:00 CDT, 0 insulin 2022-0 No Notes: Memoria lispro 7-17 (Same as: l 23:29: Humalog) [place] 00 Roll in palms of hands gently; Do not shake vigorously . WASTE: F/P - Black; E - Municipal Trash Bin Stable for 28 days at room temperatur e. Expires in days from ____Date Dextrose 2022-0 No 25 mL, Memoria 50% Syringe 7-17 Route: l (D50W) 23:29: IVP, [place] 00 Dosing Weight 95.455, kg, PRN, PRN Blood Glucose Results, Start date: 12/14/21 18:29:00 CDT, Duration: 30 day, Stop date: 01/13/22 18:28:00 CDT glucagon 2022-0 No 1 mg, Memoria 7-17 Route: IM, l 23:29: Drug form: [place] 00 PDR/INJ, PRN, Dosing Weight 95.455, kg, PRN Blood Glucose Results, Start date: 12/14/21 18:29:00 CDT, Duration: 30 day, Stop date: 01/13/22 18:28:00 CDT, 0 insulin 202-0 No Notes: Memoria lispro 7-17 (Same as: l 23:29: Humalog) [place] 00 Roll in palms of hands gently; [...] Syringe 7-17 Route: l (D50W) 23:29: IVP, [place] 00 Dosing Weight 95.455, kg, PRN, PRN Blood Glucose Results, Start date: 12/14/21 18:29:00 CDT, Duration: 30 day, Stop date: 01/13/22 18:28:00 CDT glucagon 2022-0 No 1 mg, Memoria 7-17 Route: IM, l 23:29: Drug form: [place] 00 PDR/INJ, PRN, Dosing Weight 95.455, kg, PRN Blood Glucose Results, Start date: 12/14/21 18:29:00 CDT, Duration: 30 day, Stop date: 01/13/22 18:28:00 CDT, 0 insulin 2022-0 No Notes: Memoria lispro 7-17 (Same as: l 23:29: Humalog) [place] 00 Roll in palms of hands gently; [...] 7-17 Route: IM, l 23:29: Drug form: [place] 00 PDR/INJ, PRN, Dosing Weight 95.455, kg, [...] Memoria sulfate 7-17 (Zinc l 23:28: sulfate [place] capsule) - 220 mg Zinc sulfate = 50 mg elemental zinc Same as Zinc Sulfate ascorbic No Notes: Memoria acid 7-17 (Same as: l 23:28: Vitamin C) No Notes: Memoria Perles 7-17 (Same As: l 23:28: Tessalon [place] 00 Perles) "Do Not Crush" zinc No Notes: Memoria sulfate 7-17 (Zinc l 23:28: sulfate [place] capsule) - 220 mg Zinc sulfate = 50 mg elemental zinc Same as Zinc Sulfate ascorbic No Notes: Memoria acid 7-17 (Same as: l 23:28: Vitamin C) No Notes: Memoria Perles 7-17 (Same As: l 23:28: Tessalon [place] Perles) "Do Not Crush" zinc No Notes: [...] Memoria sulfate 7-17 (Zinc l 23:28: sulfate [place] 00 capsule) - 220 mg Zinc sulfate [...] Rate: 999 l Water IV 21:08: ml/hr, [place] 00 Infuse over: 0.3 hr, Route: IV, [...] Rate: 999 l Water IV 21:08: ml/hr, [place] 00 Infuse over: 0.3 hr, Route: IV, Total Volume: 250, Start date: 12/14/21 16:08:00 CDT, Stop date: 12/14/21 16:08:00 CDT, 0 Dextrose 2022-0 No 250 mL, Memori a 10% in 12-14 Rate: 999 l Water IV 21:08: ml/hr, [place] 00 Infuse over: 0.3 hr, Route: IV, [...] Heath bobo 7-17 Route: l 20:41: IVP, [place] 00 Dosing Weight 95.455, kg, ONCE, STAT, [...] Heath bobo 7-17 Route: l 20:41: IVP, [place] 00 Dosing Weight 95.455, kg, ONCE, STAT, [...] Heath bobo 7-17 Route: l 20:41: IVP, [place] 00 Dosing Weight 95.455, kg, ONCE, STAT, Start date: 12/14/21 15:41:00 CDT, Stop date: 12/14/21 15:41:00 CDT, 25 ml = 12.5 gm d50 syringe 2-0 No 25 mL, Heath bobo 7 Route: l 20:41: IVP, [place] 00 Dosing Weight 95.455, kg, ONCE, STAT, Start date: 12/14/21 15:41:00 CDT, Stop date: 12/14/21 15:41:00 CDT, 25 ml = 12.5 gm d50 syringe 2022-0 No 25 mL, Heath bobo 7 Route: l 20:41: IVP, [place] 00 Dosing Weight 95.455, kg, ONCE, STAT, [...] Rate: To l 0.9% 01:29: prime line [place] (titrate) 00 and flush 250 mL remaining [...] tab, PO, l tablet 19:37: Daily, # [place] 00 30 tab, 0 Refill(s), other Plavix [...] tab, PO, l tablet 19:37: Daily, # [place] 00 30 tab, 0 Refill(s), other Protonix No Notes: For Mem oria 6-28 IV push l 14:00: reconstitu [place] 00 te with 10 ml 0.9% sodium [...] 6-28 (Same As: l 14:00: CeleXA) Protonix 2022-0 No Notes: For Mem oria 6-28 IV push l 14:00: reconstitu [place] 00 te with 10 ml 0.9% sodium chloride and push over 2 minutes. (Same as: Protonix) atorvastati No Notes: Heath bobo n 6-28 (Same as: l 14:00: Lipitor) [place] citalopram No Notes: Memor ia 6-28 (Same As: l 14:00: CeleXA) [place] Protonix No Notes: For Mem oria 6-28 IV push l 14:00: reconstitu [place] 00 te with 10 ml 0.9% sodium chloride and push over 2 minutes. (Same as: Protonix) atorvastati No Notes: Heath bobo n 6-28 (Same as: l 14:00: Lipitor) [place] citalopram No Notes: Memor ia 6-28 (Same As: l 14:00: CeleXA) [place] Protonix No Notes: For Mem oria 6-28 IV push l 14:00: reconstitu [place] 00 te with 10 ml 0.9% sodium chloride and push over 2 minutes. (Same as: Protonix) atorvastati No Notes: Heath bobo n 6-28 (Same as: l 14:00: Lipitor) [place] citalopram No Notes: Memor ia 6-28 (Same As: l 14:00: CeleXA) [place] Protonix No Notes: For Mem oria 6-28 IV push l 14:00: reconstitu [place] 00 te with 10 ml 0.9% sodium chloride and push over 2 minutes. (Same as: Protonix) atorvastati No Notes: Heath bobo n 6-28 (Same as: l 14:00: Lipitor) [place] 00 citalopram No Notes: Memor ia 6-28 (Same As: l 14:00: CeleXA) [place] 00 Protonix No Notes: For Mem oria [...] bobo ne 11-25 Concentrat l 06:42: ion: [place] 00 4mg/ml dexamethaso No Notes: Ehath bobo ne 11-25 Concentrat l 06:42: ion: [place] 00 4mg/ml dexamethaso No Notes: Heath bobo ne 11-25 Concentrat l 06:42: ion: [place] 00 4mg/ml dexamethaso No Notes: Heath bobo ne 11-25 Concentrat l 06:42: ion: [place] 00 4mg/ml dexamethaso No Notes: Heath bobo ne 11-25 Concentrat l 06:42: ion: [place] 00 4mg/ml dexamethaso No Notes: Heath bobo ne 11-25 Concentrat l 06:42: ion: [place] 00 4mg/ml No 125 mL, Memoria (bolus) IV 11-25 Rate: 999 l 06:31: ml/hr, [place] 00 Infuse over: 0.1 hr, Route: IVPB, Total Volume: 125, Start date: 11/25/21 1:31:00 CDT, Duration: 30 day, Stop date: 12/25/21 1:30:00 CDT, PRN Blood Glucose Results, 0 No 125 mL, Memoria (bolus) IV 11-25 Rate: 999 l 06:31: ml/hr, [place] 00 Infuse over: 0.1 hr, Route: IVPB, Total Volume: 125, Start date: 11/25/21 1:31:00 CDT, Duration: 30 day, Stop date: 12/25/21 1:30:00 CDT, PRN Blood Glucose Results, 0 D10W 2021-0 No 125 mL, Memoria (bolus) IV 6- Rate: 999 l 06:31: ml/hr, [place] 00 Infuse over: 0.1 hr, Route: IVPB, Total Volume: 125, Start date: 11/25/21 1:31:00 CDT, Duration: 30 day, Stop date: 12/25/21 1:30:00 CDT, PRN Blood Glucose Results, 0 D10W 2021-0 No 125 mL, Memoria (bolus) IV 6- Rate: 999 l 06:31: ml/hr, [place] 00 Infuse over: 0.1 hr, Route: IVPB, Total Volume: 125, Start date: 11/25/21 1:31:00 CDT, Duration: 30 day, Stop date: 12/25/21 1:30:00 CDT, PRN Blood Glucose Results, 0 D1W 2021-0 No 125 mL, Memoria (bolus) IV 11-25 Rate: 999 l 06:31: ml/hr, [place] 00 Infuse over: 0.1 hr, Route: IVPB, [...] 1:30:00 CDT, PRN Blood Glucose Results, 0 D1W 2021-0 No 125 mL, Memoria (bolus) IV 6- Rate: 999 l 06:31: ml/hr, [place] 00 Infuse over: 0.1 hr, Route: IVPB, Total Volume: 125, Start date: 11/25/21 1:31:00 CDT, Duration: 30 day, Stop date: 12/25/21 1:30:00 CDT, PRN Blood Glucose Results, 0 D10W 2021-0 No 125 mL, Memoria (bolus) IV 6-28 Rate: 999 l 06:31: ml/hr, [place] 00 Infuse over: 0.1 hr, Route: IVPB, [...] IV 6-28 Rate: 999 l 06:23: ml/hr, [place] 00 Infuse over: 0.3 hr, Route: IVPB, Total Volume: 250, Start date: 11/25/21 1:23:00 CDT, Duration: 30 day, Stop date: 12/25/21 1:22:00 CDT, PRN Blood Glucose Results, 0 D10W 2021-0 No 250 mL, Memoria (bolus) IV 6-28 Rate: 999 l 06:23: ml/hr, [place] 00 Infuse over: 0.3 hr, Route: IVPB, Total Volume: 250, Start date: 11/25/21 1:23:00 CDT, Duration: 30 day, Stop date: 12/25/21 1:22:00 CDT, PRN Blood Glucose Results, 0 D10W 2021-0 No 250 mL, Memoria (bolus) IV 6-28 Rate: 999 l 06:23: ml/hr, [place] 00 Infuse over: 0.3 hr, Route: IVPB, [...] IV 11-25 Rate: 999 l 06:23: ml/hr, [place] 00 Infuse over: 0.3 hr, Route: IVPB, [...] Syringe 11-25 Route: l (D50W) 05:55: IVP, [place] 00 Dosing Weight 94.545, kg, PRN, PRN Blood Glucose Results, Start date: 11/25/21 0:55:00 CDT, Duration: 30 day, Stop date: 12/25/21 0:54:00 CDT glucagon 2022-0 No 1 mg, Memoria 11-25 Route: IM, [...] 11-25 Route: IM, l 05:55: Drug form: [place] 00 PDR/INJ, PRN, Dosing Weight 94.545, kg, [...] 11-25 Route: IM, l 05:55: Drug form: [place] 00 PDR/INJ, PRN, Dosing Weight 94.545, kg, [...] 2022-0 No 25 mL, Memoria 50% Syringe 11-25 Route: l (D50W) 05:55: IVP, [place] 00 Dosing Weight 94.545, kg, PRN, PRN Blood Glucose Results, Start date: 11/25/21 0:55:00 CDT, Duration: 30 day, Stop date: 12/25/21 0:54:00 CDT glucagon 2021-0 No 1 mg, Memoria 11-25 Route: IM, l 05:55: Drug form: [place] 00 PDR/INJ, PRN, Dosing Weight 94.545, kg, PRN Blood Glucose Results, Start date: 11/25/21 0:55:00 CDT, Duration: 30 day, Stop date: 12/25/21 0:54:00 CDT, 0 insulin 2021-0 No Notes: Memoria lispro 6-28 (Same as: l 05:55: Humalog) [place] 00 Roll in palms of hands gently; Do not shake vigorously . WASTE: F/P - Black; E - Municipal Trash Bin Stable for 28 days at room temperatur e. Expires in days from ____Date Dextrose 2022-0 No 25 mL, Memoria 50% Syringe 11-25 Route: l (D50W) 05:55: IVP, [place] 00 Dosing Weight 94.545, kg, PRN, PRN Blood Glucose Results, Start date: 11/25/21 0:55:00 CDT, Duration: 30 day, Stop date: 12/25/21 0:54:00 CDT glucagon 2021-0 No 1 mg, Memoria 11-25 Route: IM, l 05:55: Drug form: [place] 00 PDR/INJ, PRN, Dosing Weight 94.545, kg, PRN Blood Glucose Results, Start date: 11/25/21 0:55:00 CDT, Duration: 30 day, Stop date: 12/25/21 0:54:00 CDT, 0 insulin 2021-0 No Notes: Memoria lispro 6-28 (Same as: l 05:55: Humalog) [place] 00 Roll in palms of hands gently; Do not shake vigorously . WASTE: F/P - Black; E - Municipal Trash Bin Stable for 28 days at room temperatur e. Expires in days from ____Date Dextrose 2021-0 No 25 mL, Memoria 50% Syringe 11-25 Route: l (D50W) 05:55: IVP, [place] 00 Dosing Weight 94.545, kg, PRN, PRN [...] Syringe 11-25 Route: l (D50W) 05:55: IVP, [place] 00 Dosing Weight 94.545, kg, PRN, PRN Blood Glucose Results, Start date: 11/25/21 0:55:00 CDT, Duration: 30 day, Stop date: 12/25/21 0:54:00 CDT glucagon 2021-0 No 1 mg, Memoria 11-25 Route: IM, l 05:55: Drug form: [place] 00 PDR/INJ, PRN, Dosing Weight 94.545, kg, [...] 6-28 not exceed l 05:54: 4 gm/day. [place] 00 (Same as: Tylenol) Tessalon No Notes: [...] l 05:54: 4 gm/day. (Same as: Tylenol) [place] No Notes: Memoria [...] 6-28 (Same as: l capsule 05:54: Colace) [place] 00 Zofran No Notes: Memoria 6-28 (Same [...] 6-28 not exceed l 05:54: 4 gm/day. [place] 00 (Same as: Tylenol) [place] No Notes: Memoria Perles 6-28 (Same As: l 05:54: Tessalon [place] 00 Perles) "Do Not Crush" simethicone No Notes: Heath bobo 6-28 (Same as: l 05:54: Mylicon) senna 8.6 No Notes: Memori a mg oral 6-28 (Same as: l tablet 05:54: Senokot) Colace 50 No Notes: Memori a mg oral 6-28 (Same as: l capsule 05:54: Colace) [place] 00 Zofran No Notes: Memoria 6-28 (Same as: l 05:54: Zofran) [place] 00 MEDICATION WASTE Product Size: 4 mg Product Wasted: ___ mg Tylenol No Notes: Do Memor ia 6-28 not exceed l 05:54: 4 gm/day. [place] 00 (Same as: Tylenol) sal2021 No Notes: [...] 6-28 not exceed l 05:54: 4 gm/day. [place] 00 (Same as: Tylenol) Tessalon No Notes: [...] units/mL 05:53: utaneou 00 s solution Dialyvite 2021-0 Yes 0 [...] oral 6-28 Refill(s) l tablet 05:53: atorvastati 2022-0 Yes 0 Memori a n 40 mg 6-28 Refill(s) l oral tablet 05:53: Thomas n 00 Basaglar Yes 0 Memoria KwikPen 100 6-28 Refill(s) l units/mL 05:53: [place] subcutaneou 00 s solution Dialyvite Yes 0 Memoria 800 Ultra D 6-28 Refill(s) l oral tablet 05:53: Thomas n 00 glipiZIDE Yes 0 Memoria 10 mg oral 6-28 Refill(s) l tablet 05:53: [place] 00 cefTRIAXone No Notes: Heath bobo + [...] 1000 mg Product Wasted: ___ mg cefTRIAXone 2022-0 No Notes: Heath bobo + Sodium 6-28 [...] oria 6-28 IV push l 03:37: reconstitu [place] 00 te with 10 ml 0.9% sodium chloride and push over 2 minutes. (Same as: Protonix) Protonix No Notes: For Mem oria 6-28 IV push l 03:37: reconstitu [place] 00 te with 10 ml 0.9% sodium chloride and push over 2 minutes. (Same as: Protonix) Protonix No Notes: For Mem oria 6-28 IV push l 03:37: reconstitu [place] 00 te with 10 ml 0.9% sodium chloride and push over 2 minutes. (Same as: Protonix) Protonix 0 No Notes: For Mem oria 6-28 IV push l 03:37: reconstitu [place] 00 te with 10 ml 0.9% sodium chloride and push over 2 minutes. (Same as: Protonix) Protonix 0 No Notes: For Mem oria 6-28 IV push l 03:37: reconstitu [place] 00 te with 10 ml 0.9% sodium chloride and push over 2 minutes. (Same as: Protonix) Protonix 0 No Notes: For Mem oria 6-28 IV push l 03:37: reconstitu [place] 00 te with 10 ml 0.9% sodium chloride and push over 2 minutes. (Same as: Protonix) Protonix No Notes: For Mem [facility]ria 6-28 IV push l 03:37: reconstitu [place] 00 te with 10 ml 0.9% sodium chloride and push over 2 minutes. (Same as: Protonix) Protonix No Notes: For Mem oria 6-28 IV push l 03:37: reconstitu [place] 00 te with 10 ml 0.9% sodium chloride and push over 2 minutes. (Same as: Protonix) Advair HFA Advair HFA Yes La 2 puffs Common 1-15 [facility] 00:00: - CHI 00 [facility] BD BD 2018-05 Yes La 1 needle Common Ultra-Fine Ultra-Fine 0-09 Fortune with Sp jerome Christina Pen Christina Pen 00:00: Basaglar - CHI Wamsutter Wamsutter 00 [facility] 2018-05 No QD BD Ultra-Fine Ultra-Fine 0-09 Ultra-Fine Christina Pen Christina Pen 00:00: Christina Pen Wamsutter 4mm Wamsutter 4mm 00 [place]ams[place] x 32Gm x 32Gm 4mm x 32Gm BD 2018-05 No QD BD Ultra-Fine Ultra-Fine 0-09 Ultra-Fine Christina Pen Christina Pen 00:00: Christina Pen Wamsutter 4mm Wamsutter 4mm 00 [place] x 32Gm x 32Gm 4mm x 32Gm BD 2018-05 No QD BD Ultra-Fine Ultra-Fine 0-09 Ultra-Fine Christina Pen Christina Pen 00:00: Christina Pen Wamsutter 4mm Wamsutter 4mm 00 [place] x 32Gm x 32Gm 4mm x 32Gm BD BD 2018-05 No QD BD Ultra-Fine Ultra-Fine 0-09 Ultra-Fine Christina Pen Christina Pen 00:00: Christina Pen Wamsutter 4mm Wamsutter 4mm 00 [place]amsutter x 32Gm x 32Gm 4mm x 32Gm BD BD 2018-05 No QD BD Ultra-Fine Ultra-Fine 0-09 Ultra-Fine Christina Pen Christina Pen 00:00: Christina Pen Wamsutter 4mm Wamsutter 4mm 00 [place]amsutter x 32Gm x 32Gm 4mm x 32Gm BD BD 2018-05 No QD BD Ultra-Fine Ultra-Fine 0-09 Ultra-Fine Christina Pen Christina Pen 00:00: Christina Pen Wamsutter 4mm Wamsutter 4mm 00 Wamsutter x 32Gm x 32Gm 4mm x 32Gm [facility] 2018-05 No QD BD Ultra-Fine Ultra-Fine 0-09 Ultra-Fine Christina Pen Christina Pen 00:00: Christina Pen Wamsutter 4mm Wamsutter 4mm 00 Wamsutter x 32Gm x 32Gm 4mm x 32Gm [facility] 2018- No QD BD Ultra-Fine Ultra-Fine 0-09 Ultra-Fine Christina Pen Christina Pen 00:00: Christina Pen Wamsutter 4mm Wamsutter 4mm 00 Wamsutter x 32Gm x 32Gm 4mm x 32Gm [facility] 2018- No QD BD Ultra-Fine Ultra-Fine 0-09 Ultra-Fine Christina Pen Christina Pen 00:00: Christina Pen Wamsutter 4mm Wamsutter 4mm 00 Wamsutter x 32Gm x 32Gm 4mm x 32Gm [facility] 2018- No QD BD Ultra-Fine Ultra-Fine 0-09 Ultra-Fine Christina Pen Christina Pen 00:00: Christina Pen Wamsutter 4mm Wamsutter 4mm 00 Wamsutter x 32Gm x 32Gm 4mm x 32Gm [facility] 2018- No QD BD Ultra-Fine Ultra-Fine 0-09 Ultra-Fine Christina Pen Christina Pen 00:00: Christina Pen Wamsutter 4mm Wamsutter 4mm 00 Wamsutter x 32Gm x 32Gm 4mm x 32Gm [facility] 2018-05 No QD BD Ultra-Fine Ultra-Fine 0-09 Ultra-Fine Christina Pen Christina Pen 00:00: Christina Pen Wamsutter 4mm Wamsutter 4mm 00 Wamsutter x 32Gm x 32Gm 4mm x 32Gm [facility] 2018- No QD BD Ultra-Fine Ultra-Fine 0-09 Ultra-Fine Christina Pen Christina Pen 00:00: Christina Pen Wamsutter 4mm Wamsutter 4mm 00 Wamsutter x 32Gm x 32Gm 4mm x 32Gm [facility] 2018- No QD BD Ultra-Fine Ultra-Fine 0-09 Ultra-Fine Christina Pen Christina Pen 00:00: Christina Pen Wamsutter 4mm Wamsutter 4mm 00 Wamsutter x 32Gm x 32Gm 4mm x 32Gm [facility] 2018- No QD BD Ultra-Fine Ultra-Fine 0-09 Ultra-Fine Christina Pen Christina Pen 00:00: Christina Pen Wamsutter 4mm Wamsutter 4mm 00 Wamsutter x 32Gm x 32Gm 4mm x 32Gm [facility] 2018- No QD BD Ultra-Fine Ultra-Fine 0-09 Ultra-Fine Christina Pen Christina Pen 00:00: Christina Pen Wamsutter 4mm Wamsutter 4mm 00 Wamsutter x 32Gm x 32Gm 4mm x 32Gm [facility] 2018-05 No QD BD Ultra-Fine Ultra-Fine 0-09 Ultra-Fine Christina Pen Christina Pen 00:00: Christina Pen Wamsutter 4mm Wamsutter 4mm 00 Wamsutter x 32Gm x 32Gm 4mm x 32Gm [facility] 2018-05 No QD BD Ultra-Fine Ultra-Fine 0-09 Ultra-Fine Christina Pen Christina Pen 00:00: Christina Pen Wamsutter 4mm Wamsutter 4mm 00 Wamsutter x 32Gm x 32Gm 4mm x 32Gm [facility] 2018-05 No QD BD Ultra-Fine Ultra-Fine 0-09 Ultra-Fine Christina Pen Christina Pen 00:00: Christina Pen Wamsutter 4mm Wamsutter 4mm 00 Wamsutter x 32Gm x 32Gm 4mm x 32Gm [facility] 2018-05 No QD BD Ultra-Fine Ultra-Fine 0-09 Ultra-Fine Christina Pen Christina Pen 00:00: Christina Pen Wamsutter 4mm Wamsutter 4mm 00 Wamsutter x 32Gm x 32Gm 4mm x 32Gm [facility] 2018-05 No QD BD Ultra-Fine Ultra-Fine 0-09 Ultra-Fine Christina Pen Christina Pen 00:00: Christina Pen Wamsutter 4mm Wamsutter 4mm 00 Wamsutter x 32Gm x 32Gm 4mm x 32Gm [facility] 2018-05 No QD BD Ultra-Fine Ultra-Fine 0-09 Ultra-Fine Christina Pen Christina Pen 00:00: Christina Pen Wamsutter 4mm Wamsutter 4mm 00 Wamsutter x 32Gm x 32Gm 4mm x 32Gm [...] 1 tablet C ommon 750 750 Fortune [facility] Basaglar Basaglar Yes La 52 Units C ommon KwikPen KwikPen [facility] PreserVisio PreserVisio Yes La as Common n AREDS n AREDS [facility] directed [facility] Citalopram Citalopram Yes La 1 tablet Common Hydrobromid Hydrobromid [facility] Stool Stool Yes La not Common Softener Softener [facility] defined [facility] Gentle Gentle Yes La 1 tablet Commo n Laxative Laxative Fortune as needed S pirit [facility] Atorvastati Atorvastati Yes La 1 tablet Common n Calcium n Calcium Fortune [facility] Contour Contour Yes La USE 3 Common Test Test Fortune TIMES A [facility] Eliquis 2.5 Eliquis 2.5 Yes La 1 tablet Common mg mg [facility] Multivitami Multivitami Yes La as Common n Adult n Adult Fortune directed [facility] Carvedilol Carvedilol Yes La TAKE 1 Common [facility] TABLET BY Spirit MOUTH - CHI TWICE A St DAY ON [facility] DIALYSIS Medical DAYS [place] Atorvastati Atorvastati Yes La TAKE 1 Common n Calcium n Calcium Fortune TABLET BY Spirit MOUTH - CHI EVERY DAY [facility] GlipiZIDE GlipiZIDE Yes La 1 tablet Common [facility] Basaglar Basaglar Yes La 50 Units C ommon KwikPen KwikPen [facility] Advair HFA Advair HFA No [...] Dexcom G6 Dexcom G6 No Dexcom G6 Lead Javascript Developer - Lead Javascript Developer - Lead Javascript Developer - Carvedilol Carvedilol No Carvedilol 12.5 MG [...] Dexcom G6 Dexcom G6 No Dexcom G6 Lead Javascript Developer - Lead Javascript Developer - Lead Javascript Developer - glipiZIDE 5 glipiZIDE 5 No 1{table [...] Dexcom G6 Dexcom G6 No Dexcom G6 Lead Javascript Developer - Lead Javascript Developer - Lead Javascript Developer - Ipratropium Ipratropium No Ipratropiu -Albuterol -Albuterol [...] Dexcom G6 Dexcom G6 No Dexcom G6 Lead Javascript Developer - Lead Javascript Developer - Lead Javascript Developer - Gentle Gentle No 1{table QD Gentle [...] Dexcom G6 Dexcom G6 No Dexcom G6 Lead Javascript Developer - Lead Javascript Developer - Lead Javascript Developer - PreserVisio PreserVisio No PreserVisi n AREDS [...] Dexcom G6 Dexcom G6 No Dexcom G6 Lead Javascript Developer - Lead Javascript Developer - Lead Javascript Developer - Advair HFA Advair HFA No 2{puffs [...] Dexcom G6 Dexcom G6 No Dexcom G6 Lead Javascript Developer - Lead Javascript Developer - Lead Javascript Developer - Advair HFA Advair HFA No 2{puffs [...] Dexcom G6 Dexcom G6 No Dexcom G6 Lead Javascript Developer - Lead Javascript Developer - Lead Javascript Developer - Advair HFA Advair HFA No 2{puffs [...] Dexcom G6 Dexcom G6 No Dexcom G6 Lead Javascript Developer - Lead Javascript Developer - Lead Javascript Developer - Atorvastati Atorvastati No 1{table QD Atorvastat [...] Dexcom G6 Dexcom G6 No Dexcom G6 Lead Javascript Developer - Lead Javascript Developer - Lead Javascript Developer - Atorvastati Atorvastati No Atorvastat n Calcium [...] Dexcom G6 Dexcom G6 No Dexcom G6 Lead Javascript Developer - Lead Javascript Developer - Lead Javascript Developer - Atorvastati Atorvastati No Atorvastat n Calcium [...] Completed [facility] 13:13:00 - [facility] FluAD FluAD 2021-03-30 Completed [facility] 13:13:00 - [facility] FluAD FluAD 2021-03-30 Completed [facility] 13:13:00 - [facility] FluAD FluAD 2021-03-30 Completed [facility] 13:13:00 - [facility] FluAD FluAD 2021-03-30 Completed [facility] 13:13:00 - [facility] FluAD FluAD 2021-03-30 Completed [facility] 13:13:00 - [facility] FluAD FluAD 2021-03-30 Completed [facility] 13:13:00 - [facility] FluAD FluAD 2021-03-30 Completed [facility] 13:13:00 - [facility] FluAD FluAD 2021-03-30 Completed [facility] 13:13:00 - [facility] FluAD FluAD 2021-03-30 Completed [facility] 13:13:00 - [facility] FluAD FluAD 2021-03-30 Completed [facility] 13:13:00 - [facility] FluAD FluAD 2021-03-30 Completed [facility] 13:13:00 - [facility] FluAD FluAD 2021-03-30 Completed [facility] 13:13:00 - [facility] FluAD FluAD 2021-03-30 Completed [facility] 13:13:00 - [facility] FluAD FluAD 2021-03-30 Completed [facility] 13:13:00 - [facility] FluAD FluAD 2021-03-30 Completed [facility] 13:13:00 - [facility] FluAD FluAD 2021-03-30 Completed [facility] 13:13:00 - [facility] FluAD FluAD 2021-03-30 Completed [facility] 13:13:00 - [facility] FluAD FluAD 2021-03-30 Completed [facility] 13:13:00 - [facility] FluAD FluAD 2021-03-30 Completed [facility] 13:13:00 [facility] COVID-19 Vaccine COVID-19 Vaccine 2020-08-19 Completed [facility] (Andrea) (Andrea) 09:17:00 [facility] COVID-19 Vaccine COVID-19 Vaccine 2020-08-19 Completed [facility] (Andrea) (Andrea) 09:17:00 [facility] COVID-19 Vaccine COVID-19 Vaccine 2020-08-19 Completed [facility] (Andrea) (Andrea) 09:17:00 [facility] COVID-19 Vaccine COVID-19 Vaccine 2020-08-19 Completed [facility] (Andrea) (Andrea) 09:17:00 [facility] COVID-19 Vaccine COVID-19 Vaccine 2020-08-19 Completed [facility] (Andrea) (Andrea) 09:17:00 [facility] COVID-19 Vaccine COVID-19 Vaccine 2020-08-19 Completed [facility] (Andrea) (Andrea) 09:17: [facility] COVID-19 Vaccine COVID-19 Vaccine 2020-08-19 Completed [facility] (Andrea) (Andrea) 09:17:00 - [facility] COVID-19 Vaccine COVID-19 Vaccine 2020-08-19 Completed [facility] (Andrea) (Andrea) 09:17:00 - [facility] COVID-19 Vaccine COVID-19 Vaccine 2020-08-19 Completed [facility] (Andrea) (Andrea) 09:17:00 - [facility] COVID-19 Vaccine COVID-19 Vaccine 2020-08-19 Completed [facility] (Andrea) (Andrea) 09:17:00 - [facility] COVID-19 Vaccine COVID-19 Vaccine 2020-08-19 Completed [facility] (Andrea) (Andrea) 09:17:00 [facility] COVID-19 Vaccine COVID-19 Vaccine 2020-08-19 Completed [facility] (Andrea) (Andrea) 09:17:00 [facility] COVID-19 Vaccine COVID-19 Vaccine 2020-08-19 Completed [facility] (Andrea) (Andrea) 09:17:00 [facility] COVID-19 Vaccine COVID-19 Vaccine 2020-08-19 Completed [facility] (Andrea) (Andrea) 09:17:00 [facility] COVID-19 Vaccine COVID-19 Vaccine 2020-08-19 Completed [facility] (Andrea) (Andrea) 09:17:00 [facility] COVID-19 Vaccine COVID-19 Vaccine 2020-08-19 Completed [facility] (Andrea) (Andrea) 09:17:00 [facility] COVID-19 Vaccine COVID-19 Vaccine 2020-08-19 Completed [facility] (Andrea) (Andrea) 09:17:00 [facility] COVID-19 Vaccine COVID-19 Vaccine 2020-08-19 Completed [facility] (Andrea) (Andrea) 09:17:00 [facility] COVID-19 Vaccine COVID-19 Vaccine 2020-08-19 Completed [facility] (Andrea) (Andrea) 09:17:00 [facility] COVID-19 Vaccine COVID-19 Vaccine 2020-08-19 Completed [facility] (Andrea) (Andrea) 09:17:00 - [facility] COVID-19 Vaccine COVID-19 Vaccine 2020-08-19 Completed [facility] (Andrea) (Andrea) 09:17:00 - [facility] COVID-19 Vaccine COVID-19 Vaccine 2020-08-19 Completed [facility] (Andrea) (Andrea) 09:17:00 - [facility] Vital Signs Vital Name Observation Time Observation Value Comments Source Systolic blood 2022-10-31 17:36:00 132 mm[Hg] Univer sity of pressure [facility] Diastolic blood 2022-10-31 17:36:00 61 mm[Hg] Unive rsity of pressure [facility] Heart rate 2022-10-31 17:36:00 67 /min Universi ty of [facility] Respiratory rate 2022-10-31 17:36:00 19 /min Univ ersity of [facility] Oxygen saturation in 2022-10-31 17:36:00 100 /min [facility] of Arterial blood by [facility] Pulse oximetry Branch Body temperature 2022-10-31 13:59:00 37.39 [facility] ersity of [facility] Body height 2022-10-31 13:59:00 177.8 cm Universi ty [facility] Body weight 2022-10-31 13:59:00 71.668 kg [facility] ty [facility] BMI 2022-10-31 13:59:00 22.67 kg/m2 Universi ty [facility] Heart rate 2022-10-15 19:00:00 92 /min Universi ty of [facility] Respiratory rate 2022-10-15 19:00:00 13 /min Univ ers[facility] Oxygen saturation in 2022-10-15 19:00:00 86 /min [facility]ial blood by [place] [employer] [facility] Pulse oximetry Branch Systolic blood 2022-10-15 17:00:00 144 mm[Hg] Univer sity of pressure [facility] Diastolic blood 2022-10-15 17:00:00 53 mm[Hg] Unive rsity of pressure [facility] Body temperature 2022-10-15 16:08:00 37.44 [facility] ersity of [facility] Body weight 2022-10-15 14:00:00 70.489 kg [facility] BMI 2022-10-15 14:00:00 25.86 kg/m2 [facility] Body height 2022-10-10 19:00:00 165.1 cm [facility] height 2022-02-17 15:00:00 70 [in_i] [facility] weight 2022-02-17 15:00:00 208 [lb_av] [facility] temperature 2022-02-17 15:00:00 98.1 [degF] [facility] bmi 2022-02-17 15:00:00 29.84 kg/m2 [facility] - [facility] blood pressure 2022-02-17 15:00:00 121 mm[Hg] [facility] - systolic [facility] blood pressure 2022-02-17 15:00:00 61 mm[Hg] [facility] - diastolic [facility] height 2022-01-06 14:30:00 70 [in_i] [facility] weight 2022-01-06 14:30:00 208 [lb_av] [facility] bmi 2022-01-06 14:30:00 29.84 kg/m2 [facility] - [facility] blood pressure 2022-01-06 14:30:00 137 mm[Hg] [facility] - systolic [facility] blood pressure 2022-01-06 14:30:00 79 mm[Hg] [facility] - diastolic [facility] height 2021-11-03 09:45:00 70 [in_i] [facility] - [facility] weight 2021-11-03 09:45:00 210 [lb_av] [facility] bmi 2021-11-03 09:45:00 30.13 kg/m2 [facility] - [facility] blood pressure 2021-11-03 09:45:00 144 mm[Hg] [facility] - systolic [facility] blood pressure 2021-11-03 09:45:00 86 mm[Hg] [facility] - diastolic [facility] height 2021-07-28 14:10:00 70 [in_i] [facility] - [facility] weight 2021-07-28 14:10:00 211.8 [lb_av] Common [facility] temperature 2021-07-28 14:10:00 97.5 [degF] Common [facility]irit - [facility] bmi 2021-07-28 14:10:00 30.39 kg/m2 [facility] oximetry 2021-07-28 14:10:00 93 % [facility] respiratory rate 2021-07-28 14:10:00 16 /min Comm on [facility] blood pressure 2021-07-28 14:10:00 134 mm[Hg] Common [facility] - systolic [facility] blood pressure 2021-07-28 14:10:00 63 mm[Hg] [facility] - diastolic [facility] height 2021-07-28 13:20:00 70 [in_i] [facility] weight 2021-07-28 13:20:00 211.8 [lb_av] [facility] temperature 2021-07-28 13:20:00 97.5 [degF] [facility] bmi 2021-07-28 13:20:00 30.39 kg/m2 [facility] oximetry 2021-07-28 13:20:00 93 % [facility] respiratory rate 2021-07-28 13:20:00 16 /min Comm on [facility] blood pressure 2021-07-28 13:20:00 134 mm[Hg] [facility] - systolic [facility] blood pressure 2021-07-28 13:20:00 62 mm[Hg] [facility] - diastolic [facility] height 2021-04-28 13:10:00 70 [in_i] [facility] weight 2021-04-28 13:10:00 215.9 [lb_av] Common [facility] temperature 2021-04-28 13:10:00 97.3 [degF] Common S [facility] bmi 2021-04-28 13:10:00 30.98 kg/m2 Common [facility] oximetry 2021-04-28 13:10:00 95 % Common S [facility] respiratory rate 2021-04-28 13:10:00 17 /min Comm on [facility] blood pressure 2021-04-28 13:10:00 121 mm[Hg] Common [facility] - systolic [facility] blood pressure 2021-04-28 13:10:00 60 mm[Hg] Common [facility] - diastolic [facility] height 2021-03-12 09:30:00 70 [in_i] Common [facility] weight 2021-03-12 09:30:00 211.4 [lb_av] Common [facility] temperature 2021-03-12 09:30:00 97.7 [degF] Common [facility] bmi 2021-03-12 09:30:00 30.33 kg/m2 [facility] oximetry 2021-03-12 09:30:00 95 % [facility] respiratory rate 2021-03-12 09:30:00 16 /min Comm on [facility] blood pressure 2021-03-12 09:30:00 132 mm[Hg] Common [facility] - systolic [facility] blood pressure 2021-03-12 09:30:00 67 mm[Hg] Common [facility] - diastolic [facility] Heart Rate 2022-01-02 21:14:00 [facility] [place] Respitory Rate 2022-01-02 21:14:00 Anup Scott Systolic (mm Hg) 2022-01-02 21:14:00 Heath Celeste Diastolic (mm Hg) 2022-01-02 21:14:00 Mem pancho [place] Height 2022-01-02 17:28:00 167.64 cm [facility] [place] BMI Calculated 2022-01-02 17:28:00 Memori al [place] Weight 2022-01-02 17:28:00 [facility] [place] Systolic (mm Hg) 2022-01-02 17:28:00 Heath rial [place] Diastolic (mm Hg) 2022-01-02 17:28:00 Mem orial [place] Heart Rate 2022-01-02 17:28:00 [facility] [place] Respitory Rate 2022-01-02 17:28:00 Memori al [place] Temperature Oral (F) 2022-01-02 17:28:00 97.5 F [facility] [place] Temperature Oral (F) 2021-12-17 00:00:00 98.0 F [facility] [place] Heart Rate 2021-12-17 00:00:00 [facility] [place] Respitory Rate 2021-12-17 00:00:00 Memori [facility] [place] Systolic (mm Hg) 2021-12-17 00:00:00 Heath rial [place] Diastolic (mm Hg) 2021-12-17 00:00:00 Mem orial [place] Heart Rate 2021-12-16 21:00:00 [facility] [place] Respitory Rate 2021-12-16 21:00:00 Memori al [place] Systolic (mm Hg) 2021-12-16 21:00:00 Heath rial [place] Diastolic (mm Hg) 2021-12-16 21:00:00 Mem orial [place] Temperature Oral (F) 2021-12-16 21:00:00 98.0 F [facility] [place] Heart Rate 2021-12-16 20:20:00 [facility] [place] Respitory Rate 2021-12-16 20:20:00 Memori al [place] Systolic (mm Hg) 2021-12-16 20:20:00 Heath rial [place] Diastolic (mm Hg) 2021-12-16 20:20:00 Mem orial [place] Temperature Oral (F) 2021-12-16 20:20:00 97.3 F [facility] [place] Heart Rate 2021-12-15 08:58:06 [facility] [place] Systolic (mm Hg) 2021-12-15 08:58:01 Heath rial [place] Diastolic (mm Hg) 2021-12-15 08:58:01 Mem orial [place] Heart Rate 2021-12-15 08:58:01 [facility] [place] Temperature Oral (F) 2021-12-15 08:57:27 98.2 F [facility] [place] Temperature Oral (F) 2021-12-15 05:00:00 97.5 F [facility] [place] Heart Rate 2021-12-15 05:00:00 [facility] [place] Systolic (mm Hg) 2021-12-15 05:00:00 Heath rial [place] Diastolic (mm Hg) 2021-12-15 05:00:00 Mem orial [place] Height 2021-12-15 03:03:00 177.8 cm [facility] [place] Weight 2021-12-15 03:03:00 [facility] [place] BMI Calculated 2021-12-15 03:03:00 Memori [facility] [place] Temperature Oral (F) 2021-12-15 01:20:46 97.4 F [facility] [place] Systolic (mm Hg) 2021-12-15 01:20:42 Heath rial [place] Diastolic (mm Hg) 2021-12-15 01:20:42 Mem orial [place] Respitory Rate 2021-12-15 00:45:00 Memori al [place] Height 2021-12-15 00:13:00 172.72 cm [facility] [place] BMI Calculated 2021-12-15 00:13:00 Memori al [place] Weight 2021-12-15 00:13:00 [facility] [place] Respitory Rate 2021-12-14 23:56:00 Memori al [place] Height 2021-12-14 23:34:00 172.72 cm [facility] [place] Weight 2021-12-14 23:34:00 [facility] [place] Respitory Rate 2021-12-14 23:18:00 [facility] [place] BMI Calculated 2021-12-14 19:29:00 Memori [facility] [place] Temperature Oral (F) 2021-12-04 14:04:00 97.9 F [facility] [place] Heart Rate 2021-12-04 14:04:00 [facility] [place] Respitory Rate 2021-12-04 14:04:00 Memori [facility] [place] Systolic (mm Hg) 2021-12-04 14:04:00 Heath rial [place] Diastolic (mm Hg) 2021-12-04 14:04:00 Mem orial [place] Temperature Oral (F) 2021-12-04 12:30:00 97.9 F [facility] [place] Heart Rate 2021-12-04 12:30:00 [facility] [place] Respitory Rate 2021-12-04 12:30:00 Memori al [place] Systolic (mm Hg) 2021-12-04 12:30:00 Heath rial [place] Diastolic (mm Hg) 2021-12-04 12:30:00 Mem orial [place] Respitory Rate 2021-12-04 11:45:00 Memori al [place] Heart Rate 2021-12-04 11:45:00 [facility] [place] Temperature Oral (F) 2021-12-04 11:45:00 98.4 F [facility] [place] Systolic (mm Hg) 2021-12-04 04:57:00 Heath rial [place] Diastolic (mm Hg) 2021-12-04 04:57:00 Mem orial [place] Weight 2021-12-03 23:22:00 [facility] [place] Respitory Rate 2021-11-27 00:01:00 Memori al [place] Heart Rate 2021-11-26 21:50:00 [facility] [place] Respitory Rate 2021-11-26 21:50:00 Memori al [place] Systolic (mm Hg) 2021-11-26 21:50:00 Heath rial [place] Diastolic (mm Hg) 2021-11-26 21:50:00 Mem orial [place] Temperature Oral (F) 2021-11-26 18:40:00 98.0 F [facility] [place] Heart Rate 2021-11-26 18:40:00 [facility] [place] Respitory Rate 2021-11-26 18:40:00 Memori al [place] Systolic (mm Hg) 2021-11-26 18:40:00 Heath rial [place] Diastolic (mm Hg) 2021-11-26 18:40:00 Mem orial [place] Heart Rate 2021-11-26 16:41:35 [facility] [place] Systolic (mm Hg) 2021-11-26 16:41:27 Heath rial [place] Diastolic (mm Hg) 2021-11-26 16:41:27 Mem orial [place] Temperature Oral (F) 2021-11-26 16:40:28 98.4 F [facility] [place] Temperature Oral (F) 2021-11-26 13:00:17 98.3 F Kimber Celeste Height 2021-11-25 03:24:00 177.8 cm [facility] BMI Calculated 2021-11-25 03:24:00 Anup Scott Weight 2021-11-25 03:24:00 [facility] Procedures Procedure Date / Time Performing Clinician Source Performed CT ABDOMEN PELVIS WO 2022-10-31 14:52:20 Ronnie Ayala [facility] CONTRAST Medical [facility] CT THORAX WO CONTRAST 2022-10-31 14:52:20 Ronnie Ayala [facility] [place] LIPASE 2022-10-31 14:22:00 Ronnie Ayala [facility] COMP. METABOLIC PANEL 2022-10-31 14:22:00 Ronnie Ayala [facility] ([id number]) [facility] [place] CBC WITH DIFF 2022-10-31 14:22:00 AyalaRonnie dalton [facility] NOTICE OF PRIVACY 2022-10-31 13:54:24 Doctor Unassigned, [facility] PRACTICES [place] [facility] [place] CONSENT/REFUSAL FOR 2022-10-31 13:53:28 Doctor Unassigned, [facility] DIAGNOSIS AND TREATMENT [facility] [place] POCT GLUCOSE 2022-10-15 16:16:00 Mine Mosqueda [facility] (AUTOMATED) [facility] [place] XR CHEST 1 VW 2022-10-15 14:27:00 Josi Schreiber [facility] POCT GLUCOSE 2022-10-15 12:24:00 Mine Mosqueda [facility] (AUTOMATED) [facility] [place] BASIC METABOLIC PANEL 2022-10-15 09:26:00 Marianna Barbour [facility] (NA, K, CL, CO2, Medical Branch GLUCOSE, BUN, CREATININE, CA) CBC WITH DIFF 2022-10-15 09:26:00 Marianna Barbour [facility] PREPARE PACKED RBC 2022-10-15 05:15:09 Anita Sanchez [facility] [place] POCT GLUCOSE 2022-10-15 01:54:00 Mine Mosqueda [facility] (AUTOMATED) Medical [facility] XR CHEST 1 VW 2022-10-15 01:09:38 [facility]oul [facility] IR THORACENTESIS WITH 2022-10-14 23:00:51 Marianna Barbour [facility] IMAGING [facility] GLUCOSE BODY FLUID 2022-10-14 22:53:00 Marianna Barbour [facility] T.PROTEIN BODY FLUID 2022-10-14 22:53:00 Marianna Barbour [facility] BODY FLUID DIRECT COUNT 2022-10-14 22:53:00 Marianna Barbour [facility] BODY FLUID 2022-10-14 22:53:00 Ammon [facility] CULTURE(AEROBIC/ANAEROB [facility] [place] IC) [facility] TOTAL BODY FLUID 2022-10-14 22:53:00 Marianna Barbour [facility] XR CHEST 1 VW 2022-10-14 22:38:00 [facility]oul [facility] POCT GLUCOSE 2022-10-14 21:38:00 Dominic [facility] (AUTOMATED) [facility] HEPATITIS B SURFACE 2022-10-14 19:06:00 ZuriarAnita latham [facility] ANTIBODY [facility] HEPATITIS B SURFACE 2022-10-14 19:06:00 ZuriarAnita latham [facility] ANTIGEN [facility] POCT GLUCOSE 2022-10-14 16:36:00 Dominic [facility] (AUTOMATED) [facility] POCT GLUCOSE 2022-10-14 12:50:00 Dominic [facility] (AUTOMATED) Medical Branch PHOSPHORUS 2022-10-14 08:27:00 Dominic [facility] MAGNESIUM 2022-10-14 08:27:00 Dominic [facility] BASIC METABOLIC PANEL 2022-10-14 08:27:00 Mine Mosqueda [facility] (NA, K, CL, CO2, Medical Branch GLUCOSE, BUN, CREATININE, CA) VANCOMYCIN TROUGH 2022-10-14 08:27:00 Dahiana Albert [facility] CBC WITH DIFF 2022-10-14 08:27:00 Dominic, [facility] DISCLOSURE AND CONSENT, 2022-10-14 05:01:00 Doctor Unassigned, [facility] MEDICAL AND SURGICAL [place] [facility] PROCEDURES POCT GLUCOSE 2022-10-14 03:13:00 Mine Mosqueda [facility] (AUTOMATED) Medical [facility] POCT GLUCOSE 2022-10-13 21:41:00 Dominic [facility] (AUTOMATED) [facility] POCT GLUCOSE 2022-10-13 16:25:00 Dominic [facility] (AUTOMATED) [facility] POCT GLUCOSE 2022-10-13 12:34:00 Dominic [facility] (AUTOMATED) [facility] BASIC METABOLIC PANEL 2022-10-13 09:16:00 Mine Mosqueda [facility] (NA, K, CL, CO2, Medical Branch GLUCOSE, BUN, CREATININE, CA) CBC WITH DIFF 2022-10-13 09:16:00 Dominic [facility] POCT GLUCOSE 2022-10-13 01:24:00 Dominic [facility] (AUTOMATED) [facility] POCT GLUCOSE 2022-10-12 21:23:00 Dominic [facility] (AUTOMATED) [facility] TRANSFUSE PACKED RBC 2022-10-12 18:39:00 Luis A Angel [facility] PREPARE PACKED RBC 2022-10-12 18:29:53 Anegl Gunn [facility] POCT GLUCOSE 2022-10-12 16:47:00 Dominic [facility] (AUTOMATED) [facility] BLOOD CULTURE SCREEN 2022-10-12 15:52:00 Angel Gunn [facility] BLOOD CULTURE SCREEN 2022-10-12 15:40:00 Luis A Angel [facility] XR CHEST 1 VW 2022-10-12 14:31:35 Dominic [facility] POCT GLUCOSE 2022-10-12 12:44:00 Dominic [facility] (AUTOMATED) Medical Branch PHOSPHORUS 2022-10-12 09:58:00 Dominic [facility] Branch MAGNESIUM 2022-10-12 09:58:00 Dominic [facility] TROPONIN I 2022-10-12 09:58:00 Tim Alejandro [facility] BASIC METABOLIC PANEL 2022-10-12 09:58:00 Mine Mosqueda [facility] (NA, K, CL, CO2, Medical Branch GLUCOSE, BUN, CREATININE, CA) LIPID PANEL 2022-10-12 09:58:00 Tim Alejandro [facility] ([id number])(TOTAL Medical Branch CHOLESTEROL, TRIGLYCERIDES, HDL) CBC WITH DIFF 2022-10-12 09:58:00 Dominic [facility] N-TERMINAL PRO-BNP 2022-10-12 09:58:00 Tim Alejandro [facility] POCT GLUCOSE 2022-10-12 06:42:00 Dominic [facility] (AUTOMATED) [facility] TROPONIN I 2022-10-12 03:10:00 Luis A [facility] POCT GLUCOSE 2022-10-12 01:19:00 Dominic [facility] (AUTOMATED) [facility] OCCULT (GUAIAC) BLOOD 2022-10-11 21:58:00 Mine Mosqueda [facility] POCT GLUCOSE 2022-10-11 21:19:00 Dominic [facility] (AUTOMATED) [facility] IRON 2022-10-11 18:20:00 Dominic [facility] TOTAL IRON BINDING 2022-10-11 18:20:00 Mine Mosqueda [facility] CAPACITY [facility] TROPONIN I 2022-10-11 18:20:00 [facility]UL[facility] 2022-10-11 18:20:00 [facility] PROCAL[facility]IN 2022-10-11 18:20:00 Dominic [facility] POCT GLUCOSE 2022-10-11 16:58:00 Dominic [facility] (AUTOMATED) [facility] POCT GLUCOSE 2022-10-11 16:05:00 Dominic [facility] (AUTOMATED) [facility] ABORH CONFIRMATION (LAB 2022-10-11 15:23:00 [facility] TROPONIN I 2022-10-11 15:08:00 Luis A [facility] POCT GLUCOSE 2022-10-11 14:22:00 Dominic [facility] (AUTOMATED) [facility] TRANSTHORACIC ECHO 2022-10-11 13:32:00 Luis A [facility] (TTE) COMPLETE [facility] POCT GLUCOSE 2022-10-11 13:04:00 Dominic [facility] (AUTOMATED) [facility] POCT GLUCOSE 2022-10-11 12:04:00 Dominic [facility] (AUTOMATED) [facility] POCT GLUCOSE 2022-10-11 11:21:00 Dominic [facility] (AUTOMATED) [facility] HB ABO GROUPING 2022-10-11 11:20:00 Luis A [facility] PHOSPHORUS 2022-10-11 09:41:00 Luis A [facility] MAGNESIUM 2022-10-11 09:41:00 Luis A [facility] TROPONIN I 2022-10-11 09:41:00 Luis A [facility] BASIC METABOLIC PANEL 2022-10-11 09:41:00 Luis A [facility] (NA, K, CL, CO2, Medical Branch GLUCOSE, BUN, CREATININE, CA) CBC WITHOUT DIFF 2022-10-11 09:41:00 Luis A [facility] POCT GLUCOSE 2022-10-11 09:41:00 [facility] N-TERMINAL PRO-BNP 2022-10-11 09:41:00 Luis A [facility] POCT GLUCOSE 2022-10-11 08:43:00 Dominic [facility] (AUTOMATED) [facility] POCT GLUCOSE 2022-10-11 07:36:00 Dominic [facility] (AUTOMATED) [facility] POCT GLUCOSE 2022-10-11 06:18:00 Dominic [facility] (AUTOMATED) [facility] POCT GLUCOSE 2022-10-11 05:52:00 Dominic [facility] (AUTOMATED) [facility] POCT GLUCOSE 2022-10-11 04:24:00 [facility]ic [facility] (AUTOMATED) [facility] POCT GLUCOSE 2022-10-11 03:33:00 [facility]ic [facility] (AUTOMATED) [facility] POCT GLUCOSE 2022-10-11 02:08:00 Mine Mosqueda [facility] (AUTOMATED) [facility] POCT GLUCOSE 2022-10-11 01:08:00 Mine Mosqueda [facility] (AUTOMATED) Medical [facility] MRSA / MSSA SCREEN BY 2022-10-11 00:16:00 Mine Mosqueda [facility] PCR, [facility] CRITICAL CARE 2022-10-10 23:43:37 Fabian Fernandes [facility] POCT GLUCOSE 2022-10-10 23:20:00 Mine Mosqueda [facility] (AUTOMATED) [facility] POCT GLUCOSE 2022-10-10 21:42:00 [facility] [place] POCT GLUCOSE 2022-10-10 21:25:00 Fabian Fernandes [facility] (AUTOMATED) [facility] HB ECG ROUTINE & RHYTHM 2022-10-10 21:20:02 Fabian Fernandes [facility] STRIP [facility] AC PANEL 21 + LACTIC 2022-10-10 20:50:00 Fabian Fernandes [facility] ACID [facility] POCT GLUCOSE 2022-10-10 20:32:00 Fabian Fernandes [facility] (AUTOMATED) [facility] CT THORAX WO CONTRAST 2022-10-10 20:31:25 Fabian Fernandes [facility] CT ABDOMEN PELVIS WO 2022-10-10 20:30:49 Fabian Fernandes [facility] CONTRAST [facility] CT HEAD WO CONTRAST 2022-10-10 20:30:49 Fabian Fernandes [facility] POCT GLUCOSE 2022-10-10 19:43:00 Fabian Fernandes [facility] (AUTOMATED) [facility] [place] XR CHEST 1 VW 2022-10-10 19:40:00 Fabian Fernandes [facility] BLOOD CULTURE SCREEN 2022-10-10 19:38:00 Fabian Fernandes [facility] BLOOD CULTURE WORKUP 2022-10-10 19:38:00 Fabian Fernandes [facility] GRAM POSITIVE BLOOD 2022-10-10 19:38:00 Fabian Fernandes [facility] PATHOGENS DNA Medical Branch PROBE-AEROBIC ASSIGNMENT OF BENEFITS 2022-10-10 19:11:20 Doctor Unassigned, [facility] [place] [facility] CONSENT/REFUSAL FOR 2022-10-10 19:10:59 Doctor Unassigned, [facility] DIAGNOSIS AND TREATMENT [place] [facility] TROPONIN I 2022-10-10 19:08:00 Fabian Fernandes [facility] COMP. METABOLIC PANEL 2022-10-10 19:08:00 Fabian Fernandes [facility] ([id number]) [facility] CBC WITH DIFF 2022-10-10 19:08:00 oDm Fabian [facility] GLYCOSYLATED HEMOGLOBIN 2022-10-10 19:08:00 Mine Mosqueda [facility] (A1C) [facility] N-TERMINAL PRO-BNP 2022-10-10 19:08:00 Fabian Fernandes [facility] POCT GLUCOSE 2022-10-10 18:58:00 Fabian Fernandes [facility] (AUTOMATED) [facility] [id number] 2021-10-18 00:00:00 [facility] Encoun[facility] Start End Encounter Admission Attending Care Care Encounter Source Date/Time Date/Time Type Type Clinicians Facility Department ID 2022-11-10 Outpatient Fortune, STLMLC STLMLC [id number] Common 11:36:01 [facility] [address] [facility] 2022-05-20 Outpatient Fortune, STLMLC STLMLC [id number] Common 08:24:01 [place] [address] [facility] 2022-05-15 Outpatient Fortune, STLMLC STLMLC [id number] Common 08:53:00 [place] [address] [facility] 2022-05-11 Outpatient Fortune, STLMLC STLMLC [id number] Common 14:49:00 [place] [facility] 2022-05-08 Outpatient Ofrtune, STLMLC STLMLC [id number] Common 10:15:01 [place] [address] [facility] 2022-05-07 Outpatient [facility], STLMLC STLMLC [id number] Common 11:53:00 [facility] 2022-02-18 Outpatient [facility], STLMLC STLMLC [id number] Common 12:05:01 [facility] 2022-01-01 Outpatient [facility], STLMLC STLMLC [id number] Common 10:24:01 [facility] 2021-12-29 Outpatient [facility], STLMLC STLMLC [id number] Common 08:34:00 [facility] 2021-12-16 Outpatient [facility] [id number] 14:42:[id number] [place] [address] 2021-11-19 Outpatient [facility], STLMLC STLMLC [id number] Common 08:42:01 [facility] 2021-11-03 Outpatient [facility], STLMLC STLMLC [id number] Common 10:33:01 [facility] 2021-10-15 Outpatient 3 [id number] ENCPL REF [id number] [facility] 08:19:25 [facility] [place] 2021-10-14 Outpatient 3 [id number] ENCPL REF [id number] [facility] 11:59:03 [facility] [place] 2021-06-25 Outpatient [facility], STLMLC STLMLC [id number] Common 14:22:06 [place] [address] [facility] 2021-06-25 Outpatient [facility], STLMLC STLMLC [id number] Common 14:13:51 [place] [address] [facility] 2021-06-25 Outpatient [facility], STLMLC STLMLC [id number] Common 13:38:12 [place] [address] [facility] 2021-06-25 Outpatient [facility], STLMLC STLMLC [id number] Common 12:43:29 [place] [address] [facility] 2021-06-25 Outpatient [facility], STLMLC STLMLC [id number] Common 12:42:27 [place] [address] [facility] 2021-06-25 Outpatient [facility], STLMLC STLMLC [id number] Common 12:31:12 [place] [address] [facility] 2021-06-25 Outpatient [facility], STLMLC STLC [id number] Common 12:31:03 [place] [address] [facility] 2021-06-25 Outpatient [facility], STLMLC STLMLC [id number] Common 12:30:21 [place] [address] [facility] 2021-06-25 Outpatient [facility], STLMLC STLC [id number] Common 11:00:43 [place] [address] [facility] 2022-10-31 2022-10-31 Emergency X ISABELLANEW [facility] ERT [id number] Univers 09:00:00 12:40:00 [facility] 2022-10-31 2022-10-31 Emergency IsabellaNEW [facility] [id number] Univers 09:00:00 12:40:00 Ronnie CARRASQUILLO [id number] i ty of NATASHA [id number] [facility] [id number] [facility] 084 Branch 2022-10-16 2022-10-16 Transition SHAJI Davis [id number] Univers 00:00:00 00:00:00 of Care Ubaldo VELASQUEZY [id number] ity MAGGIE [id number] [facility] [id number] [facility] 403 Branch 2022-10-10 2022-10-15 Inpatient X AMMON OHWILLOW [facility] [id number] Univers 13:54:00 14:40:00 MARIANNA leal [facility] 2022-10-10 2022-10-15 Hospital Fabian Fernandes [facility] [id number] Univers 13:54:00 14:40:00 Encounter Mine Mosqueda [id number] ity Marianna Barbour [id number] [facility] [id number] [facility] 080 Branch 2022-07-03 2022-07-03 (TEL) [facility] STLMLC [id number] Co mmon 00:00:00 00:00:00 [facility] 2022-06-08 2022-06-08 (TEL) STLMLC STLMLC [id number] Co mmon 00:00:00 00:00:00 [facility] 2022-05-06 2022-05-06 (TEL) STLMLC STLMLC [id number] Co mmon 00:00:00 00:00:00 [facility] 2022-04-03 2022-04-03 (TEL) STLMLC STLMLC [id number] Co mmon 00:00:00 00:00:00 [facility] 2022-02-17 2022-02-17 (TEL) STLMLC STLMLC [id number] Co mmon 00:00:00 00:00:00 [facility] 2022-02-17 2022-02-17 OFFICE STLMLC STLMLC [id number] Co mmon 00:00:00 00:00:00 [facility] - CHI LEVEL 4 [facility] 2022-01-06 2022-01-06 OFFICE STLMLC STLMLC [id number] Co mmon 00:00:00 00:00:00 [facility]IT [facility] PT - CHI LEVEL 4 [facility] 2022-01-02 2022-01-02 Emergency [facility] [id number] Memoria 17:12:00 21:33:00 latrice Celeste 03 l [facility] 2022-01-02 2022-01-02 Emergency [facility] [id number] Memoria 17:12:00 21:33:00 latrice Block l [facility] 2022-01-02 2022-01-02 Emergency E ABNER, JANE MHBL [id number] MHBL 12:12:00 16:33:00 CAREY 2022-01-02 2022-01-02 Outpatient Abner, QUYNH [address] [id number] 12:12:00 16:33:00 Carey R 03 2022-01-01 2022-01-01 (TEL) STLMLC STLMLC [id number] Co mmon 00:00:00 00:00:00 [facility] 2021-12-31 2021-12-31 (TEL) STLMLC [facility] [id number] Co mmon 00:00:00 00:00:00 [facility] 2021-12-14 2021-12-17 [facility] [id number] Memoria 19:19:49 03:14:[address] [facility] 2021-12-14 2021-12-17 [facility]patient [facility] [id number] Memoria 19:19:49 03:14:[address] [facility] 2021-12-14 2021-12-16 Inpatient E SAJJA, MHBL MED [id number] MHBL 18:26:00 22:14:00 ZACHARY 2021-12-14 2021-12-16 Outpatient Sajja, MHPL MHPL [id number] 14:19:49 22:14:00 Zachary 02 2021-12-14 2021-12-14 Outpatient Ajibade, MHPL MHPL [id number] 14:19:49 14:19:49 [facility] 2021-12-03 2021-12-04 Emergency [facility] [id number] Memoria 23:19:26 14:53:[address] [facility] 2021-12-03 2021-12-04 Emergency [facility] [id number] Memoria 23:19:26 14:53:[address] [facility] 2021-12-03 2021-12-04 Outpatient Fadowole, MHPL MHPL [id number] 18:19:26 09:53:00 [facility] 2021-12-03 2021-12-04 Emergency E FADOWOLE, MHBL MHBL [id number] MHBL 18:19:00 09:53:00 PEPPER 2021-12-01 2021-12-01 Outpatient COH COH PIJFJKR ZIB COH 00:00:00 00:00:00 [id number] 2021-11-25 2021-11-27 [facility] [id number] Memoria 03:23:10 00:12:00 n latrice Celeste 00 l [facility] 2021-11-25 2021-11-27 [facility] [id number] Memoria 03:23:10 00:12:00 comfort Celeste 00 l [facility] 2021-11-25 2021-11-26 Outpatient E AJIBADE, MHBL MED [id number] MHBL 10:37:00 19:12:00 MONSE 2021-11-24 2021-11-26 Outpatient Ajibade, MHPL MHPL [id number] 22:23:10 19:12:00 Monse 00 [facility] 2021-11-24 2021-11-26 Outpatient Ajibade, MHPL MHPL [id number] 22:23:10 19:12:00 Monse 00 [place] 2021-11-24 2021-11-24 (TEL) STLMLC STLMLC [id number] Co mmon 00:00:00 00:00:00 [facility] 2021-10-16 2021-11-03 Inpatient 3 NATHANIEL, ENCPL GILDA [id number] [facility] 23:26:00 21:40:00 CHILANGO 0519 [facility] [place] [facility] 2021-11-03 2021-11-03 OFFICE STLMLC STLMLC [id number] Co mmon 00:00:00 00:00:[address] [facility] it PT LEVEL 4 - [facility] 2021-10-17 2021-10-17 (TEL) STLMLC STLMLC [id number] Co mmon 00:00:00 00:00:00 [facility] 2021-08-12 2021-08-12 (TEL) STLMLC STLMLC [id number] Co mmon 00:00:00 00:00:00 [facility] 2021-07-28 2021-07-28 OFFICE STLMLC STLMLC [id number] Co mmon 00:00:00 00:00:00 VISIT [facility] - CHI LEVEL 4 [facility] 2021-07-28 2021-07-28 SUB ANNUAL STLMLC STLMLC [id number] Common 00:00:00 00:00:00 MCR [facility] VISIT [facility] 2021-06-12 2021-06-12 (TEL) STLMLC STLMLC [id number] Co mmon 00:00:00 00:00:00 [facility] 2021-05-21 2021-05-21 (TEL) STLMLC STLMLC [id number] Co mmon 00:00:00 00:00:00 [facility] 2021-04-28 2021-04-28 OFFICE STLMLC STLMLC [id number] Co mmon 00:00:00 00:00:00 VISIT [facility] 4 [facility] 2021-03-26 2021-03-26 (TEL) STLMLC STLMLC [id number] Co mmon 00:00:00 00:00:00 [facility] 2021-03-12 2021-03-12 OFFICE STLMLC STLMLC [id number] Co mmon 00:00:00 00:00:00 V[facility]IT [facility] 4 [facility] 2021-02-10 2021-02-10 Outpatient STLMLC STLMLC [id number] Common 00:00:00 00:00:00 [facility] 2021-01-31 2021-01-31 Outpatient STLMLC STLMLC [id number] Common 00:00:00 00:00:00 [facility] 2021-01-13 2021-01-13 Outpatient STLMLC STLMLC [id number] Common 00:00:00 00:00:00 [facility] 2021-01-08 2021-01-08 Outpatient STLMLC STLMLC [id number] Common 00:00:00 00:00:00 [facility] 2020-12-31 2020-12-31 Outpatient STLMLC STLMLC [id number] Common 00:00:00 00:00:00 [facility] 2020-12-11 2020-12-11 Outpatient STLMLC STLMLC [id number] Common 00:00:00 00:00:00 [facility] 2020-08-19 2020-08-19 Outpatient STLMLC STLMLC [id number] Common 00:00:00 00:00:00 [facility] 2020-07-19 2020-07-19 Outpatient STLMLC STLMLC [id number] Common 00:00:00 00:00:00 [facility] 2020-07-15 2020-07-15 Outpatient STLMLC STLMLC [id number] Common 00:00:00 00:00:00 [facility] 2020-06-14 2020-06-14 Outpatient STLMLC STLMLC [id number] Common 00:00:00 00:00:00 [facility] 2020-06-05 2020-06-05 Outpatient STLMLC STLMLC [id number] Common 00:00:00 00:00:00 [facility] 2020-04-23 2020-04-23 Outpatient STLMLC STLMLC [id number] Common 00:00:00 00:00:00 [facility] 2020-04-22 2020-04-22 Outpatient STLMLC STLMLC [id number] Common 00:00:00 00:00:00 [facility] 2020-04-17 2020-04-17 Outpatient STLMLC STLMLC [id number] Common 00:00:00 00:00:00 [facility] 2020-01-15 2020-01-15 [facility] [id number] Common 10:45:00 10:45:[address] [facility] 2019-10-16 2019-10-16 [facility] [id number] Common 13:00:00 13:00:[address] [facility] 2019-07-17 2019-07-17 [facility] [id number] Common 13:45:00 13:45:[address] [facility] 2019-06-14 2019-06-14 Out[facility] [id number] Common 11:45:00 11:45:[address] [facility] 2019-06-07 2019-06-07 Out[facility] [id number] Common 11:57:00 11:57:[address] [facility] 2019-05-17 2019-05-17 Out[facility] [id number] Common 11:30:00 11:30:[address] [facility] 2019-04-24 2019-04-24 [facility] [id number] Common 14:52:00 14:52:[address] [facility] 2019-04-19 2019-04-19 Out[facility] [id number] Common 14:45:00 14:45:[address] [facility] 2019-04-06 2019-04-06 Out[facility] [id number] Common 08:35:00 08:35:[address] [facility] 2019-04-04 2019-04-04 Out[facility] [id number] Common 08:34:00 08:34:[address] [facility] 2019-03-08 2019-03-08 Out[facility] [id number] Common 10:57:00 10:57:[address] [facility] 2019-02-20 2019-02-20 [facility] [id number] Common 14:00:00 14:00:[address] [facility] Results Test Description Test Time Test Comments Results Result Comments Source COMP. METABOLIC PANEL (07649) 2022-10-31 15:25:34 Test Item Value Reference Range Interpretation Comme nts NA (test code = 1881799610) 136 mmol/L 135-145 K (test code = 4803994117) 4.7 mmol/L 3.5-5.0 CL (test code = 5702991210) 96 mmol/L 98-108 L CO2 TOTAL (test code = 9729214690) 31 mmol/L 23-31 AGAP (test code = 0558992585) 9 2-16 BUN (test code = 3681530069) 26 mg/dL 7-23 H GLUCOSE (test code = 0185450238) 190 mg/dL 70-110 H CREATININE (test code = 2.56 mg/dL 0.60-1.25 H 3689592643) TOTAL BILI (test code = 0.9 mg/dL 0.1-1.6 8740081216) CALCIUM (test code = 4548749544) 9.6 mg/dL 8.6-10.6 T PROTEIN (test code = 9056305587) 6.4 g/dL 6.3-8.2 ALBUMIN (test code = 3470100749) 3.5 g/dL 3.5-5.0 ALK PHOS (test code = 0527100870) 307 U/L 34-122 H ALTv (test code = 1742-6) 27 U/L 5-50 AST(SGOT) (test code = 9789800825) 28 U/L 13-40 eGFR (test code = 9133709063) 24.5 mL/min/1.73m2 MALIK (test code = MALIK) [...] tests). Lab Interpretation (test code = Abnormal 96254-2) [facility] Test Item Value Reference Range Interpretation Comments LIPASE (test code = 7697126881) 212 U/L 0-220 Lab Interpretation (test code = Normal 08963-2) [facility] WITH BERB3542-90-82 15:12:12 Test Item Value Reference Range Interpretation Comments WBC (test code = 4.75 See_Comment [Automated 5790-2) message] The sy stem which generated this result transmitted reference range : 4.20 - 10.70 10*3/?L. The reference range was not used to interpret this result as normal/abnormal . RBC (test code = 1.98 See_Comment L [Automated 649-8) message] The sy stem which generated this [...] RDW-SD (test code = 45.4 fL 38.5-51.6 50143-4) RDW-CV (test code = 14.3 % 12.1-15.4 788-0) PLT (test code = 191 See_Comment [Automated 777-3) message] The sy stem which generated this result transmitted reference range : 150 - 328 10*3/ ?L. The reference r samantha was not used to interpret this result as normal/abnormal . MPV (test code = 10.1 fL 9.8-13.0 98892-1) NRBC/100 WBC (test 0.0 See_Comment [Automat ed code = 0434430416) message] The system which generated this result transmitted reference range : 0.0 - 10.0 /100 WBCs. The refer ence range was not u sed to interpret th is result as normal/abnormal . NRBC x10^3 (test code See_Comment [Auto mated = 4671568705) message] The s ystem which generated this result transmitted reference range : 10*3/?L. The reference range was not used to interpret this result as normal/abnormal . GRAN MAT (NEUT) % 62.8 % (test code = 770-8) IMM GRAN % (test code 0.60 % = 7955510946) LYMPH % (test code = 23.2 % 736-9) MONO % (test code = 10.9 % 5905-5) EOS % (test code = 2.3 % 713-8) BASO % (test code = 0.2 % 706-2) GRAN MAT x10^3(ANC) 2.98 10*3/uL 1.99-6.95 (test code = 2728067538) IMM GRAN x10^3 (test 0.03 10*3/uL 0.00-0.06 code = 1360792793) LYMPH x10^3 (test code 1.10 10*3/uL 1.09-3.23 = 731-0) MONO x10^3 (test code 0.52 10*3/uL 0.36-1.02 = 742-7) EOS x10^3 (test code = 0.11 10*3/uL 0.06-0.53 711-2) BASO x10^3 (test code 0.01-0.09 = 704-7) Lab Interpretation Abnormal (test code = 30176-9) [facility] GLUCOSE (AUTOMATED)2022-10-15 16:18:07 Test Item Value Reference Range Interpretation Comments POCT GLU (test code = 3261298944) 131 mg/dL 70-110 H Lab Interpretation (test code = Abnormal 06492-8) [facility] GLUCOSE (AUTOMATED)2022-10-15 12:27:02 Test Item Value Reference Range Interpretation Comments POCT GLU (test code = 9629271421) 220 mg/dL 70-110 H Lab Interpretation (test code = Abnormal 40798-9) [facility] 2 Units 2022-10-15 05:15:09 Test Item Value Reference Range Interpretation Comments Cross Match Result Compatible (test code = 4409) ISBT Blood Type Code 6200 (test code = 960379) Unit Blood Type (test A Pos code = 4410) Unit Number (test [id number] code = 4411) Blood Expiration Date [id number] & Time (test code = 380162) Status Information Released (test code = 4412) Product Red Blood Cells Identification (test code = 4413) Product Code (test [id number] Performed at [facility] code = 4414) Laboratory Services - [facility] Blood [address] [place], [place] [address]Toll Free: [phone] A No. [id number] [facility] GLUCOSE (AUTOMATED)2022-10-15 01:55:15 Test Item Value Reference Range Interpretation Comments POCT GLU (test code = 6148768452) 152 mg/dL 70-110 H Lab Interpretation (test code = Abnormal 65412-5) [facility] Surface Antibody (HBsAb)2022-10-15 00:05:17 Test Item Value Reference Range Interpretation Comments HBsAB (test code = Negative 3433031195) HBsAb 3.80 mIU/mL Semi-Quantitative (test code = 4497387130) MALIK (test code = Interpretation: MALIK) ?Hepatitis B Surface Antibody ? Negative - Patient is considered to be not immune to infection with HBV. ? ? Positive - Anti-HBs detected at greater than or equal to 12 mIU/mL. ?Patient is considered to be immune to infection with HBV. ? [facility] B Surface Antigen (HBsAg)2022-10-14 23:47:58 Test Item Value Reference Range Interpretation Comments HBsAg Semi-Quantitative (test code = 0.09 Negative 5195-3) [facility] GLUCOSE (AUTOMATED)2022-10-14 21:41:48 Test Item Value Reference Range Interpretation Comments POCT GLU (test code = 6467938111) 118 mg/dL 70-110 H Lab Interpretation (test code = Abnormal 47640-0) [facility] GLUCOSE (AUTOMATED)2022-10-14 16:47:29 Test Item Value Reference Range Interpretation Comments POCT GLU (test code = 6690464577) 132 mg/dL 70-110 H Lab Interpretation (test code = Abnormal 58353-9) [facility] CULTURE [id number] 14:16:04 Test Item Value Reference Range Interpretation Comments Blood Culture-Aerobic Culture positive. No growth AA P revious (test code = 83796-5) See Blood Culture p reliminary Workup for verified result additional was Culture In information. Progress on 10/10/2022 at 19 01 CDTPrevious preliminary verified result was No growth a t 24 hours on 10/11/2022 at 16 01 CDT Blood No organisms No growth Previous Culture-Anaerobic isolated preliminar y (test code = 47192-3) verifi ed result was Culture In Progress on 10/10/2022 at 19 01 CDTPrevious preliminary verified result was No growth a t 24 hours on 10/11/2022 at 16 01 CDTPrevious preliminary verified result was Culture In Progress on 10/12/2022 at 11 51 CDT Lab Interpretation Abnormal (test code = 22283-3) [facility] CULTURE [id number] 14:16:04 Test Item Value Reference Range Interpretation Comments Blood Culture-Aerobic Culture positive. No growth AA P revious (test code = 32799-3) See Blood Culture p reliminary Workup for verified result additional was Culture In information. Progress on 10/10/2022 at 19 01 CDTPrevious preliminary verified result was No growth a t 24 hours on 10/11/2022 at 16 01 CDT Blood No organisms No growth Previous Culture-Anaerobic isolated preliminar y (test code = 50930-2) verifi ed result was Culture In Progress on 10/10/2022 at 19 01 CDTPrevious preliminary verified result was No growth a t 24 hours on 10/11/2022 at 16 01 CDT Lab Interpretation Abnormal (test code = 47967-7) [facility] GLUCOSE (AUTOMATED)2022-10-14 12:54:35 Test Item Value Reference Range Interpretation Comments POCT GLU (test code = 5858618029) 221 mg/dL 70-110 H Lab Interpretation (test code = Abnormal 16801-4) [facility] GLUCOSE (AUTOMATED)2022-10-14 03:16:56 Test Item Value Reference Range Interpretation Comments POCT GLU (test code = 6910217826) 129 mg/dL 70-110 H Lab Interpretation (test code = Abnormal 31969-6) [facility] GLUCOSE (AUTOMATED)2022-10-13 21:44:17 Test Item Value Reference Range Interpretation Comments POCT GLU (test code = 1950671488) 95 mg/dL 70-110 Lab Interpretation (test code = Normal 14795-8) [facility] GLUCOSE (AUTOMATED)2022-10-13 16:27:34 Test Item Value Reference Range Interpretation Comments POCT GLU (test code = 6429074726) 167 mg/dL 70-110 H Lab Interpretation (test code = Abnormal 58355-1) [facility] GLUCOSE (AUTOMATED)2022-10-13 12:36:25 Test Item Value Reference Range Interpretation Comments POCT GLU (test code = 7034243871) 169 mg/dL 70-110 H Lab Interpretation (test code = Abnormal 33593-7) [facility] GLUCOSE (AUTOMATED)2022-10-13 01:25:21 Test Item Value Reference Range Interpretation Comments POCT GLU (test code = 8235648847) 142 mg/dL 70-110 H Lab Interpretation (test code = Abnormal 09709-8) [facility] Center[facility] POS[facility]IVE BLO[facility] PATHOGENS DNA [id number] 21:42:17 Test Item Value Reference Range Interpretation Comments Coagulase Negative Positive Negative, See A Staphylococcus (test Comment/Narrative code = 80430-9) MALIK (test code = MALIK) Coagulase negative [...] contact the Antimicrobial Stewardship Program with questions.Pager: ?[phone] Testing included eleven identification and three resistance marker targets. Lab Interpretation Abnormal (test code = 00914-2) [facility] GLUCOSE (AUTOMATED)2022-10-12 21:24:15 Test Item Value Reference Range Interpretation Comments POCT GLU (test code = 1796968237) 124 mg/dL 70-110 H Lab Interpretation (test code = Abnormal 59570-6) [facility] P[facility] RBC (in units), 1 Units 2022-10-12 18:29:53 Test Item Value Reference Range Interpretation Comments Cross Match Result Compatible (test code = 4409) ISBT Blood Type Code 6200 (test code = 013643) Unit Blood Type (test A Pos code = 4410) Unit Number (test [id number] code = 4411) Blood Expiration Date [id number] & Time (test code = 252326) Status Information Issued (test code = 4412) Product Red Blood Cells Identification (test code = 4413) Product Code (test [id number] Performed at [facility] code = 4414) Laboratory Services - [facility] Blood [address] [place] [address]Brxu Free: [phone] A No. [id number] [facility] GLUCOSE (AUTOMATED)2022-10-12 16:49:16 Test Item Value Reference Range Interpretation Comments POCT GLU (test code = 0091682201) 183 mg/dL 70-110 H Lab Interpretation (test code = Abnormal 54322-6) [facility]AL [id number] 14:35:54 Test Item Value Reference Range Interpretation Comments NT-proBNP (test code = 82184 pg/mL <=450 H 1425045043) MALIK (test code = MALIK) Biotin has been reported to cause a negative bias, interpret results relative to patient's use of biotin. Lab Interpretation (test Abnormal code = 99666-3) [facility] [id number] 14:31:03 Test Item Value Reference Range Interpretation Comments TROPONIN I (test code = 0.296 ng/mL <=0.034 H 0222351564) MALIK (test code = MALIK) Reference (Normal) [...] biotin. Lab Interpretation Abnormal (test code = 15064-1) [facility] CenterLIPID PANEL (00293)(TOTAL CHOLESTEROL, TRIGLYCERIDES, HDL)2022-10-12 14:05:04 Test Item Value Reference Range Interpretation Comments CHOL (test code = 9147568946) 61 mg/dL 120-200 L HDL (test code = 4917263394) 19 mg/dL >=40 L HDLC RATIO (test code = 5438351822) 3.2 <=5.0 TRIG (test code = 5409348949) 82 mg/dL 30-170 LDL CHOL (test code = 92809-6) 26 mg/dL <=160 VLDL (test code = 4441255066) 16 mg/dL 5-60 Lab Interpretation (test code = Abnormal 31948-2) [facility]2022-10-12 12:46:09 Test Item Value Reference Range Interpretation Comments POCT GLU (test code = 6627772096) 139 mg/dL 70-110 H Lab Interpretation (test code = Abnormal 54631-6) [facility] CenterBASIC METABOLIC PANEL (NA, K, CL, CO2, GLUCOSE, BUN, CREATININE, CA)2022-10-12 11:04:31 Test Item Value Reference Range Interpretation Comments NA (test code = 136 mmol/L 135-145 7690902542) K (test code = 4.9 mmol/L 3.5-5.0 1100906305) CL (test code = 99 mmol/L 98-108 6490789286) CO2 TOTAL (test code = 27 mmol/L 23-31 9658838571) AGAP (test code = 10 2-16 1323938574) BUN (test code = 54 mg/dL 7-23 H 8531136796) GLUCOSE (test code = 136 mg/dL 70-110 H 3430283861) CREATININE (test code = 4.66 mg/dL 0.60-1.25 H 0432553742) CALCIUM (test code = 9.0 mg/dL 8.6-10.6 4384727099) eGFR (test code = 12.3 mL/min/1.73m2 9759136260) MALIK (test code = MALIK) Association of [...] tests). Lab Interpretation Abnormal (test code = 59529-5) [facility]MAGN[facility]UM2023-[facility]-15 11:04:31 Test Item Value Reference Range Interpretation Comments MAGNESIUM (test code = 9917591579) 1.9 mg/dL 1.7-2.4 Lab Interpretation (test code = Normal 25890-6) [facility]PHOSPHORUS2023-[facility]-15 11:04:11 Test Item Value Reference Range Interpretation Comments PHOSPHORUS (test code = 0259992908) 3.8 mg/dL 2.5-5.0 Lab Interpretation (test code = Normal 05703-7) [facility] CenterCB WITH [id number] 10:44:53 Test Item Value Reference Range Interpretation [...] RDW-SD (test code = 46.5 fL 38.5-51.6 74819-0) RDW-CV (test code = 14.5 % 12.1-15.4 788-0) PLT (test code = 129 See_Comment L [Automated 777-3) message] The sy stem which generated this result transmitted reference range : 150 - 328 10*3/ ?L. The reference r samantha was not used to interpret this result as normal/abnormal . MPV (test code = 9.7 fL 9.8-13.0 L 80451-9) NRBC/100 WBC (test 0.0 See_Comment [Automat ed code = 5409585187) message] The system which generated this result transmitted reference range : 0.0 - 10.0 /100 WBCs. The refer ence range was not u sed to interpret th is result as normal/abnormal . NRBC x10^3 (test code See_Comment [Auto mated = 9157684388) message] The s ystem which generated this result transmitted reference range : 10*3/?L. The reference range was not used to interpret this result as normal/abnormal . GRAN MAT (NEUT) % 70.2 % (test code = 770-8) IMM GRAN % (test code 0.40 % = 0717429149) LYMPH % (test code = 19.3 % 736-9) MONO % (test code = 7.4 % 5905-5) EOS % (test code = 2.3 % 713-8) BASO % (test code = 0.4 % 706-2) GRAN MAT x10^3(ANC) 3.61 10*3/uL 1.99-6.95 (test code = 3011369806) IMM GRAN x10^3 (test 0.00-0.06 code = 5051428505) LYMPH x10^3 (test code 0.99 10*3/uL 1.09-3.23 L = 731-0) MONO x10^3 (test code 0.38 10*3/uL 0.36-1.02 = 742-7) EOS x10^3 (test code = 0.12 10*3/uL 0.06-0.53 711-2) BASO x10^3 (test code 0.01-0.09 = 704-7) Lab Interpretation Abnormal (test code = 59826-4) [facility] GLUCOSE (AUTOMATED)2022-10-12 06:45:05 Test Item Value Reference Range Interpretation Comments POCT GLU (test code = 7039099996) 189 mg/dL 70-110 H Lab Interpretation (test code = Abnormal 83286-7) [facility] GLUCOSE (AUTOMATED)2022-10-12 01:24:37 Test Item Value Reference Range Interpretation Comments POCT GLU (test code = 1636702233) 145 mg/dL 70-110 H Lab Interpretation (test code = Abnormal 28409-8) [facility] GLUCOSE (AUTOMATED)2022-10-11 21:34:09 Test Item Value Reference Range Interpretation Comments POCT GLU (test code = 2568537814) 140 mg/dL 70-110 H Lab Interpretation (test code = Abnormal 18764-4) [facility] GLUCOSE (AUTOMATED)2022-10-11 17:09:13 Test Item Value Reference Range Interpretation Comments POCT GLU (test code = 4728650175) 174 mg/dL 70-110 H Lab Interpretation (test code = Abnormal 37557-2) [facility] GLUCOSE (AUTOMATED)2022-10-11 16:19:41 Test Item Value Reference Range Interpretation Comments POCT GLU (test code = 0013759702) 170 mg/dL 70-110 H Lab Interpretation (test code = Abnormal 19009-7) [facility] GLUCOSE (AUTOMATED)2022-10-11 14:32:59 Test Item Value Reference Range Interpretation Comments POCT GLU (test code = 6803391475) 151 mg/dL 70-110 H Lab Interpretation (test code = Abnormal 46703-1) [facility] GLUCOSE (AUTOMATED)2022-10-11 13:15:13 Test Item Value Reference Range Interpretation Comments POCT GLU (test code = 9173009865) 108 mg/dL 70-110 Lab Interpretation (test code = Normal 76139-2) [facility] GLUCOSE (AUTOMATED)2022-10-11 12:14:37 Test Item Value Reference Range Interpretation Comments POCT GLU (test code = 0755573440) 106 mg/dL 70-110 Lab Interpretation (test code = Normal 72288-2) [facility] GLUCOSE (AUTOMATED)2022-10-11 11:28:53 Test Item Value Reference Range Interpretation Comments POCT GLU (test code = 4612466133) 121 mg/dL 70-110 H Lab Interpretation (test code = Abnormal 10924-5) [facility] GLUCOSE (AUTOMATED)2022-10-11 09:43:44 Test Item Value Reference Range Interpretation Comments POCT GLU (test code = 4249477707) 129 mg/dL 70-110 H Lab Interpretation (test code = Abnormal 49304-6) [facility] GLUCOSE (AUTOMATED)2022-10-11 08:46:38 Test Item Value Reference Range Interpretation Comments POCT GLU (test code = 7086430343) 101 mg/dL 70-110 Lab Interpretation (test code = Normal 23800-7) [facility] GLUCOSE (AUTOMATED)2022-10-11 07:38:35 Test Item Value Reference Range Interpretation Comments POCT GLU (test code = 1543200108) 102 mg/dL 70-110 Lab Interpretation (test code = Normal 57032-4) [facility] GLUCOSE (AUTOMATED)2022-10-11 06:20:36 Test Item Value Reference Range Interpretation Comments POCT GLU (test code = 0500703251) 112 mg/dL 70-110 H Lab Interpretation (test code = Abnormal 47656-8) [facility] GLUCOSE (AUTOMATED)2022-10-11 05:53:46 Test Item Value Reference Range Interpretation Comments POCT GLU (test code = 0982714445) 118 mg/dL 70-110 H Lab Interpretation (test code = Abnormal 25105-5) [facility] GLUCOSE (AUTOMATED)2022-10-11 04:25:32 Test Item Value Reference Range Interpretation Comments POCT GLU (test code = 9302483448) 127 mg/dL 70-110 H Lab Interpretation (test code = Abnormal 17298-6) [facility] GLUCOSE (AUTOMATED)2022-10-11 03:35:04 Test Item Value Reference Range Interpretation Comments POCT GLU (test code = 3486422102) 132 mg/dL 70-110 H Lab Interpretation (test code = Abnormal 90778-1) [facility] GLUCOSE (AUTOMATED)2022-10-11 02:10:18 Test Item Value Reference Range Interpretation Comments POCT GLU (test code = 0495078914) 155 mg/dL 70-110 H Lab Interpretation (test code = Abnormal 67948-8) [facility] CenterGLYCOSYLATED HEMOGLOBIN (A1C)2022-10-11 01:39:22 Test Item Value Reference Range Interpretation Comments HGB A1C (test code = 7.2 % 4.0-5.7 H 4548-4) MALIK (test code = MALIK) Reference RangesNormal: <5.7%Prediabetes: 5.7 - 6.4%Diabetes: > 6.5% Lab Interpretation (test Abnormal code = 41395-2) [facility] GLUCOSE (AUTOMATED)2022-10-11 01:10:41 Test Item Value Reference Range Interpretation Comments POCT GLU (test code = 8745673899) 156 mg/dL 70-110 H Lab Interpretation (test code = Abnormal 34135-1) [facility] GLUCOSE (AUTOMATED)2022-10-10 23:31:02 Test Item Value Reference Range Interpretation Comments POCT GLU (test code = 6267222991) 144 mg/dL 70-110 H Lab Interpretation (test code = Abnormal 95428-1) [facility] GLUCOSE (AUTOMATED)2022-10-10 21:44:27 Test Item Value Reference Range Interpretation Comments POCT GLU (test code = 7003537214) 138 mg/dL 70-110 H Lab Interpretation (test code = Abnormal 67773-0) [facility] GLUCOSE (AUTOMATED)2022-10-10 21:27:07 Test Item Value Reference Range Interpretation Comments POCT GLU (test code = 0358058309) 150 mg/dL 70-110 H Lab Interpretation (test code = Abnormal 11089-7) [facility] + LACTIC [id number] 21:01:36 Test Item Value Reference Range Interpretation Comments PH (test code = 7.31 7.32-7.42 L 5820274820) PCO2 LORENA (test code = 55 See_Comment H [Auto mated 1786372079) message] The sy stem which generated this result transmitted reference range : 41 - 51 mmHg. The reference range was not used to interpret this result as normal/abnormal . PO2 LORENA (test code = 16 See_Comment L [Autom ated 2083264385) message] The sy stem which generated this result transmitted reference range : 25 - 40 mmHg. The reference range was not used to interpret this result as normal/abnormal . HCO3 LORENA (test code = 27 See_Comment [Auto mated 9204375002) message] The sy stem which generated this result transmitted reference range : 24 - 28 mEq/L. The reference range was not used to interpret this result as normal/abnormal . AC VBE(BEAKER) (test 0.6 mEq/L code = 2713674884) THB LORENA (test code = 8.2 g/dL 13.5-18.0 LL 1125381964) %O2HB LORENA (test code = 22.2 % 52.0-63.0 L 2607509931) %COHB LORENA (test code = 0.1 % 0.0-1.5 2611702207) %METHB LORENA (test code = 1.5 % 0.4-1.5 7073718057) VOL%O2 LORENA (test code = 2.6 % 6.0-12.0 L 6331323306) NA (test code = 132 mmol/L 135-145 L 3301635830) K+ (test code = 4.7 mmol/L 3.5-5.0 0605740895) AC CA IONZ (test code = 5.10 mg/dL 4.50-5.30 3327238497) GLUCOSE (test code = 153 mg/dL 70-110 H 8489118873) LACTIC ACID (test code 1.54 mmol/L 0.50-2.20 = 1557854232) Lab Interpretation Abnormal (test code = 09769-5) [facility]22-[facility]-10 20:33:33 Test Item Value Reference Range Interpretation Comments POCT GLU (test code = 9300907972) 137 mg/dL 70-110 H Lab Interpretation (test code = Abnormal 92129-2) [facility]AL [id number] 20:24:02 Test Item Value Reference Range Interpretation Comments NT-proBNP (test code = 13918 pg/mL <=450 H 8935567369) MALIK (test code = MALIK) Biotin has been reported to cause a negative bias, interpret results relative to patient's use of biotin. Lab Interpretation (test Abnormal code = 06766-1) [facility]OLIC PANEL (07502)2022-10-10 20:18:35 Test Item Value Reference Range Interpretation Comments NA (test code = 136 mmol/L 135-145 5872824959) K (test code = 4.8 mmol/L 3.5-5.0 1941205899) CL (test code = 94 mmol/L 98-108 L 0084750759) CO2 TOTAL (test code = 33 mmol/L 23-31 H 1854159132) AGAP (test code = 9 2-16 1445836775) BUN (test code = 34 mg/dL 7-23 H 2312850413) GLUCOSE (test code = 62 mg/dL 70-110 L 0106304998) CREATININE (test code = 3.14 mg/dL 0.60-1.25 H 4352332540) TOTAL BILI (test code = 0.9 mg/dL 0.1-1.2 7087552753) CALCIUM (test code = 9.4 mg/dL 8.6-10.6 1501429384) T PROTEIN (test code = 6.6 g/dL 6.3-8.2 3168865848) ALBUMIN (test code = 3.6 g/dL 3.5-5.0 6418845849) ALK PHOS (test code = 334 U/L 34-122 H 9969186361) ALTv (test code = 38 U/L 5-50 2-6) AST(SGOT) (test code = 38 U/L 13-40 8329516815) eGFR (test code = 19.3 mL/min/1.73m2 6358141883) MALIK (test code = MALIK) Association of [...] tests). Lab Interpretation Abnormal (test code = 77629-0) [facility]10 19:48:15 Test Item Value Reference Range Interpretation Comments POCT GLU (test code = 7593419424) 50 mg/dL 70-110 LL Lab Interpretation (test code = Abnormal 90081-7) [facility] [id number] 19:44:14 Test Item Value Reference Range Interpretation Comments TROPONIN I (test code = 0.060 ng/mL <=0.034 H 0113225953) MALIK (test code = MALIK) Reference (Normal) [...] biotin. Lab Interpretation Abnormal (test code = 70142-8) [facility] WITH [id number] 19:23:50 Test Item Value Reference Range Interpretation Comments WBC (test code = 7.51 See_Comment [Automated 6690-2) message] The sy stem which generated this result transmitted reference range : 4.20 - 10.70 10*3/?L. The reference range was not used to interpret this result as normal/abnormal . RBC (test code = 2.71 See_Comment L [Automated 669-8) message] The sy stem which generated this [...] RDW-SD (test code = 46.5 fL 38.5-51.6 10597-7) RDW-CV (test code = 14.4 % 12.1-15.4 788-0) PLT (test code = 131 See_Comment L [Automated 777-3) message] The sy stem which generated this result transmitted reference range : 150 - 328 10*3/ ?L. The reference r samantha was not used to interpret this result as normal/abnormal . MPV (test code = 9.2 fL 9.8-13.0 L 20780-3) NRBC/100 WBC (test 0.0 See_Comment [Automat ed code = 5579599330) message] The system which generated this result transmitted reference range : 0.0 - 10.0 /100 WBCs. The refer ence range was not u sed to interpret th is result as normal/abnormal . NRBC x10^3 (test code See_Comment [Auto mated = 3078686650) message] The s ystem which generated this result transmitted reference range : 10*3/?L. The reference range was not used to interpret this result as normal/abnormal . GRAN MAT (NEUT) % 80.2 % (test code = 770-8) IMM GRAN % (test code 0.50 % = 9858133093) LYMPH % (test code = 9.6 % 736-9) MONO % (test code = 8.8 % 5905-5) EOS % (test code = 0.4 % 713-8) BASO % (test code = 0.5 % 706-2) GRAN MAT x10^3(ANC) 6.02 10*3/uL 1.99-6.95 (test code = 3858038017) IMM GRAN x10^3 (test 0.04 10*3/uL 0.00-0.06 code = 8030901287) LYMPH x10^3 (test code 0.72 10*3/uL 1.09-3.23 L = 731-0) MONO x10^3 (test code 0.66 10*3/uL 0.36-1.02 = 742-7) EOS x10^3 (test code = 0.03 10*3/uL 0.06-0.53 L 711-2) BASO x10^3 (test code 0.04 10*3/uL 0.01-0.09 = 704-7) Lab Interpretation Abnormal (test code = 89212-9) [facility] 18:59:49 Test Item Value Reference Range Interpretation Comments POCT GLU (test code = 3553685606) 80 mg/dL 70-110 Lab Interpretation (test code = Normal 53125-4) [facility] [id number] 18:35:00 Test Item Value Reference Range Interpretation Comments Antibody Scrn (test Negative (01/02/22 1:35 code = Antibody Scrn) PM) [facility] [employer] [id number] 18:35:00 Test Item Value Reference Range Interpretation Comments ABO/Rh (test code = ABO/Rh) AB POS [facility] [facility] [employer] [id number] 18:35:00 Test Item Value Reference Range Interpretation Comments Antibody Scrn (test Negative (01/02/22 1:35 code = Antibody Scrn) PM) [facility] [employer] [id number] 18:35:00 Test Item Value Reference Range Interpretation Comments ABO/Rh (test code = ABO/Rh) AB [facility] [id number] 18:35:00 Test Item Value Reference Range Interpretation Comments Antibody Scrn (test Negative (01/02/22 1:35 code = Antibody Scrn) PM) [facility] [id number] 18:35:00 Test Item Value Reference Range Interpretation Comments ABO/Rh (test code = ABO/Rh) AB POS [facility] [employer] [id number] 18:35:00 Test Item Value Reference Range Interpretation Comments Antibody Scrn (test Negative (01/02/22 1:35 code = Antibody Scrn) PM) [facility] [employer] [id number] 18:35:00 Test Item Value Reference Range Interpretation Comments ABO/Rh (test code = ABO/Rh) AB POS [facility] [employer] [id number] 18:35:00 Test Item Value Reference Range Interpretation Comments Antibody Scrn (test Negative (01/02/22 1:35 code = Antibody Scrn) PM) [facility] [employer] [id number] 18:35:00 Test Item Value Reference Range Interpretation Comments ABO/Rh (test code = ABO/Rh) AB POS [employer] [id number] 18:35:00 Test Item Value Reference Range Interpretation Comments Antibody Scrn (test Negative (01/02/22 1:35 code = Antibody Scrn) PM) [facility] [employer] [id number] 18:35:00 Test Item Value Reference Range Interpretation Comments ABO/Rh (test code = ABO/Rh) AB POS [employer] [facility] [id number] 18:35:00 Test Item Value Reference Range Interpretation Comments Antibody Scrn (test Negative (01/02/22 1:35 code = Antibody Scrn) PM) [facility] [employer] [id number] 18:35:00 Test Item Value Reference Range Interpretation Comments ABO/Rh (test code = ABO/Rh) AB POS [facility] [employer] [id number] 18:35:00 Test Item Value Reference Range Interpretation Comments Antibody Scrn (test Negative (01/02/22 1:35 code = Antibody Scrn) PM) [facility] [employer] [id number] 18:35:00 Test Item Value Reference Range Interpretation Comments ABO/Rh (test code = ABO/Rh) AB POS [employer] [id number] 18:13:00 Test Item Value Reference Range Interpretation Comments HS Troponin I (test code = HS Troponin 156 I) [facility] [employer] [id number] 18:13:00 Test Item Value Reference Range Interpretation Comments Glucose Lvl (test code = Glucose Lvl) 237 70-99 [facility] [employer] [id number] 18:13:00 Test Item Value Reference Range Interpretation Comments BUN (test code = BUN) 46 7-22 [facility] [id number] 18:13:00 Test Item Value Reference Range Interpretation Comments Creatinine Lvl (test code = Creatinine 5.92 0.50-1.40 Lvl) [facility]Che[facility] Ro[facility] CompanyNOV[facility] HE[facility] BRUN[facility] MEDICAL [id number] 18:13:00 Test Item Value Reference Range Interpretation Comments Sodium Lvl (test code = Sodium Lvl) 134 135-145 [facility] [id number] 18:13:00 Test Item Value Reference Range Interpretation Comments Potassium Lvl (test code = Potassium 4.4 3.5-5.1 Lvl) [facility] [id number] 18:13:00 Test Item Value Reference Range Interpretation Comments Chloride Lvl (test code = Chloride Lvl) 98 95-109 [facility] [id number] 18:13:00 Test Item Value Reference Range Interpretation Comments HS Troponin I (test code = HS Troponin 156 I) [facility] [id number] 18:13:00 Test Item Value Reference Range Interpretation Comments Glucose Lvl (test code = Glucose Lvl) 237 70-99 [facility] [id number] 18:13:00 Test Item Value Reference Range Interpretation Comments BUN (test code = BUN) 46 7-22 [facility] [id number] 18:13:00 Test Item Value Reference Range Interpretation Comments Creatinine Lvl (test code = Creatinine 5.92 0.50-1.40 Lvl) [facility] [id number] 18:13:00 Test Item Value Reference Range Interpretation Comments Sodium Lvl (test code = Sodium Lvl) 134 135-145 [facility] [id number] 18:13:00 Test Item Value Reference Range Interpretation Comments Potassium Lvl (test code = Potassium 4.4 3.5-5.1 Lvl) [facility] [id number] 18:13:00 Test Item Value Reference Range Interpretation Comments Chloride Lvl (test code = Chloride Lvl) 98 95-109 [facility] [id number] 18:13:00 Test Item Value Reference Range Interpretation Comments CO2 (test code = CO2) 29 24-32 [facility] [id number] 18:13:00 Test Item Value Reference Range Interpretation Comments Calcium Lvl (test code = Calcium Lvl) 9.2 8.5-10.5 [facility] [employer] [id number] 18:13:00 Test Item Value Reference Range Interpretation Comments Total Protein (test code = Total 6.6 6.4-8.4 Protein) [facility] [id number] 18:13:00 Test Item Value Reference Range Interpretation Comments CO2 (test code = CO2) 29 24-32 [facility] [id number] 18:13:00 Test Item Value Reference Range Interpretation Comments Albumin Lvl (test code = Albumin Lvl) 3.1 3.5-5.0 [facility] [employer] [id number] 18:13:00 Test Item Value Reference Range Interpretation Comments ALT (test code = ALT) 36 See_Comment [Auto mated message] The system which ge nerated this result transmit swathi reference range : <=65. The reference range was not used to interpr et this result as deny l/abnormal. [facility] [employer] [id number] 18:13:00 Test Item Value Reference Range Interpretation Comments AST (test code = AST) 28 See_Comment [Auto mated message] The system which ge nerated this result transmit swathi reference range : <=37. The reference range was not used to interpr et this result as deny l/abnormal. [facility] [employer] [id number] 18:13:00 Test Item Value Reference Range Interpretation Comments Alk Phos (test code = Alk Phos) 231 39-136 [facility] [employer] [id number] 18:13:00 Test Item Value Reference Range Interpretation Comments Bili Total (test code = Bili Total) 1.0 0.2-1.3 [facility] [employer] [id number] 18:13:00 Test Item Value Reference Range Interpretation Comments AGAP (test code = AGAP) 11.4 10.0-20.0 [facility] [employer] [id number] 18:13:00 Test Item Value Reference Range Interpretation Comments B/C Ratio (test code = B/C Ratio) 8 1 6-25 [facility] [id number] 18:13:00 Test Item Value Reference Range Interpretation Comments Globulin (test code = Globulin) 3.5 2.7-4.2 [place] 852792-08-05 18:13:00 Test Item Value Reference Range Interpretation Comments A/G Ratio (test code = A/G Ratio) 0.9 1 0.7-1.6 [place] [address]-08-05 18:13:00 Test Item Value Reference Range Interpretation Comments eGFR (test code = eGFR) 9 [place] 852792-08-05 18:13:00 Test Item Value Reference Range Interpretation Comments Calcium Lvl (test code = Calcium Lvl) 9.2 8.5-10.5 [place] [address]-08-05 18:13:00 Test Item Value Reference Range Interpretation Comments WBC (test code = WBC) 4.8 3.7-10.4 [place] [address]-08-05 18:13:00 Test Item Value Reference Range Interpretation Comments RBC (test code = RBC) 1.93 4.70-6.10 [place] [address]-08-05 18:13:00 Test Item Value Reference Range Interpretation Comments Hgb (test code = Hgb) 7.2 14.0-18.0 [place] [address]-08-05 18:13:00 Test Item Value Reference Range Interpretation Comments Hct (test code = Hct) 21.2 42.0-54.0 [place] [address]-08-05 18:13:00 Test Item Value Reference Range Interpretation Comments MCV (test code = MCV) 110.1 80.0-94.0 [place] [address]-08-05 18:13:00 Test Item Value Reference Range Interpretation Comments MCH (test code = MCH) 37.1 pg 27.0-31.0 [place] [address]-08-05 18:13:00 Test Item Value Reference Range Interpretation Comments MCHC (test code = MCHC) 33.7 32.0-36.0 [place] [address]-08-05 18:13:00 Test Item Value Reference Range Interpretation Comments RDW (test code = RDW) 25.8 11.5-14.5 [place] [address]-08-05 18:13:00 Test Item Value Reference Range Interpretation Comments Platelet (test code = Platelet) 216 133-450 [place] 441032-08-05 18:13:00 Test Item Value Reference Range Interpretation Comments MPV (test code = MPV) 8.2 7.4-10.4 [facility]2022-08-05 18:13:00 Test Item Value Reference Range Interpretation Comments Total Protein (test code = Total 6.6 6.4-8.4 Protein) [address]08-05 18:13:00 Test Item Value Reference Range Interpretation Comments PT (test code = PT) 16.9 s 12.0-14.7 [place] [address]-08-05 18:13:00 Test Item Value Reference Range Interpretation Comments INR (test code = INR) 1.39 1 0.85-1.17 [place] [address]-08-05 18:13:00 Test Item Value Reference Range Interpretation Comments PTT (test code = PTT) 35.0 s 22.9-35.8 [place] [address]-08-05 18:13:00 Test Item Value Reference Range Interpretation Comments Plt Morph (test code = Normal (01/02/22 1:13 PM) Plt Morph) [place] [address]-08-05 18:13:00 Test Item Value Reference Range Interpretation Comments Segs (test code = Segs) 76.4 45.0-75.0 [place] [address]-08-05 18:13:00 Test Item Value Reference Range Interpretation Comments Lymphocytes (test code = Lymphocytes) 14.6 20.0-40.0 [place] [address]-08-05 18:13:00 Test Item Value Reference Range Interpretation Comments Monocytes (test code = Monocytes) 7.5 2.0-12.0 [address]08-05 18:13:00 Test Item Value Reference Range Interpretation Comments Eosinophils (test code = 0.6 See_Comment [A utomated message] The Eosinophils) system which ge nerated this result tra nsmitted reference range : <=4.0. The reference r samantha was not used to int erpret this result as normal/abnormal . [place] [address]-08-05 18:13:00 Test Item Value Reference Range Interpretation Comments Basophils (test code = 0.9 See_Comment [Aut omated message] The Basophils) system which ge nerated this result tra nsmitted reference range : <=1.0. The reference r samantha was not used to int erpret this result as normal/abnormal . [address]08-05 18:13:00 Test Item Value Reference Range Interpretation Comments Neutrophils # (test code = Neutrophils 3.7 1.5-8.1 #) [address]08-05 18:13:00 Test Item Value Reference Range Interpretation Comments Albumin Lvl (test code = Albumin Lvl) 3.1 3.5-5.0 [address]08-05 18:13:00 Test Item Value Reference Range Interpretation Comments Lymphocytes # (test code = Lymphocytes 0.7 1.0-5.5 #) [address]08-05 18:13:00 Test Item Value Reference Range Interpretation Comments Monocytes # (test code 0.4 See_Comment [Aut omated message] The = Monocytes #) system which generated this result tra nsmitted reference range : <=0.8. The reference r samantha was not used to int erpret this result as normal/abnormal . [address]08-05 18:13:00 Test Item Value Reference Range Interpretation Comments Anisocyte (test code = 2+ *ABN*(01/02/22 1:13 Anisocyte) PM) [address]08-05 18:13:00 Test Item Value Reference Range Interpretation Comments Macrocyte (test code = 2+ *ABN*(01/02/22 1:13 Macrocyte) PM) [address]08-05 18:13:00 Test Item Value Reference Range Interpretation Comments ALT (test code = ALT) 36 See_Comment [Auto mated message] The system which ge nerated this result transmit swathi reference range : <=65. The reference range was not used to interpr et this result as deny l/abnormal. [address]08-05 18:13:00 Test Item Value Reference Range Interpretation Comments AST (test code = AST) 28 See_Comment [Auto mated message] The system which ge nerated this result transmit swathi reference range : <=37. The reference range was not used to interpr et this result as deny l/abnormal. [address]08-05 18:13:00 Test Item Value Reference Range Interpretation Comments Alk Phos (test code = Alk Phos) 231 39-136 [facility]2022-08-05 18:13:00 Test Item Value Reference Range Interpretation Comments Bili Total (test code = Bili Total) 1.0 0.2-1.3 [place] 852792-08-05 18:13:00 Test Item Value Reference Range Interpretation Comments AGAP (test code = AGAP) 11.4 10.0-20.0 [place] 852792-08-05 18:13:00 Test Item Value Reference Range Interpretation Comments B/C Ratio (test code = B/C Ratio) 8 1 6-25 [place] [address]-08-05 18:13:00 Test Item Value Reference Range Interpretation Comments Globulin (test code = Globulin) 3.5 2.7-4.2 [place] [address]-08-05 18:13:00 Test Item Value Reference Range Interpretation Comments A/G Ratio (test code = A/G Ratio) 0.9 1 0.7-1.6 [place] [address]-08-05 18:13:00 Test Item Value Reference Range Interpretation Comments eGFR (test code = eGFR) 9 [place] [address]-08-05 18:13:00 Test Item Value Reference Range Interpretation Comments WBC (test code = WBC) 4.8 3.7-10.4 [place] [address]-08-05 18:13:00 Test Item Value Reference Range Interpretation Comments RBC (test code = RBC) 1.93 4.70-6.10 [place] 441032-08-05 18:13:00 Test Item Value Reference Range Interpretation Comments Hgb (test code = Hgb) 7.2 14.0-18.0 [place] [address]-08-05 18:13:00 Test Item Value Reference Range Interpretation Comments Hct (test code = Hct) 21.2 42.0-54.0 [place] [address]-08-05 18:13:00 Test Item Value Reference Range Interpretation Comments MCV (test code = MCV) 110.1 80.0-94.0 [place] [address]-08-05 18:13:00 Test Item Value Reference Range Interpretation Comments MCH (test code = MCH) 37.1 pg 27.0-31.0 [place] [address]-08-05 18:13:00 Test Item Value Reference Range Interpretation Comments MCHC (test code = MCHC) 33.7 32.0-36.0 [place] [address]-08-05 18:13:00 Test Item Value Reference Range Interpretation Comments RDW (test code = RDW) 25.8 11.5-14.5 [place] [address]-08-05 18:13:00 Test Item Value Reference Range Interpretation Comments Platelet (test code = Platelet) 216 133-450 [place] 441032-08-05 18:13:00 Test Item Value Reference Range Interpretation Comments MPV (test code = MPV) 8.2 7.4-10.4 [place] [address]-08-05 18:13:00 Test Item Value Reference Range Interpretation Comments PT (test code = PT) 16.9 s 12.0-14.7 [place] [address]-08-05 18:13:00 Test Item Value Reference Range Interpretation Comments INR (test code = INR) 1.39 1 0.85-1.17 [place] 441032-08-05 18:13:00 Test Item Value Reference Range Interpretation Comments PTT (test code = PTT) 35.0 s 22.9-35.8 [place] [address]-08-05 18:13:00 Test Item Value Reference Range Interpretation Comments Plt Morph (test code = Normal (01/02/22 1:13 PM) Plt Morph) [place] 441032-08-05 18:13:00 Test Item Value Reference Range Interpretation Comments Segs (test code = Segs) 76.4 45.0-75.0 [place] 441032-08-05 18:13:00 Test Item Value Reference Range Interpretation Comments Lymphocytes (test code = Lymphocytes) 14.6 20.0-40.0 [place] [address]-08-05 18:13:00 Test Item Value Reference Range Interpretation Comments Monocytes (test code = Monocytes) 7.5 2.0-12.0 [place] [address]-08-05 18:13:00 Test Item Value Reference Range Interpretation Comments Eosinophils (test code = 0.6 See_Comment [A utomated message] The Eosinophils) system which ge nerated this result tra nsmitted reference range : <=4.0. The reference r samantha was not used to int erpret this result as normal/abnormal . [id number] 18:13:00 Test Item Value Reference Range Interpretation Comments Basophils (test code = 0.9 See_Comment [Aut omated message] The Basophils) system which ge nerated this result tra nsmitted reference range : <=1.0. The reference r samantha was not used to int erpret this result as normal/abnormal . [facility] CenterQhtbdzzBOFQCWBBZR9554-41-13 18:13:00 Test Item Value Reference Range Interpretation Comments Neutrophils # (test code = Neutrophils 3.7 1.5-8.1 #) [facility] CenterGxjtmbfKGGWGMHHNE2098-67-11 18:13:00 Test Item Value Reference Range Interpretation Comments Lymphocytes # (test code = Lymphocytes 0.7 1.0-5.5 #) [facility] CenterZfabcleBOOPVFGNJZ6232-43-13 18:13:00 Test Item Value Reference Range Interpretation Comments Monocytes # (test code 0.4 See_Comment [Aut omated message] The = Monocytes #) system which generated this result tra nsmitted reference range : <=0.8. The reference r samantha was not used to int erpret this result as normal/abnormal . [facility] CenterHxgpcfuHLYWCYDZKJ5082-54-75 18:13:00 Test Item Value Reference Range Interpretation Comments Anisocyte (test code = 2+ *ABN*(01/02/22 1:13 Anisocyte) PM) [facility] CenterOqimdnsKSUZAFODHW0110-46-52 18:13:00 Test Item Value Reference Range Interpretation Comments Macrocyte (test code = 2+ *ABN*(01/02/22 1:13 Macrocyte) PM) [facility] [id number] 18:13:00 Test Item Value Reference Range Interpretation Comments HS Troponin I (test code = HS Troponin 156 I) [facility]2022-08-05 18:13:00 Test Item Value Reference Range Interpretation Comments Glucose Lvl (test code = Glucose Lvl) 237 70-99 [facility]2022-08-05 18:13:00 Test Item Value Reference Range Interpretation Comments BUN (test code = BUN) 46 7-22 [facility]2022-08-05 18:13:00 Test Item Value Reference Range Interpretation Comments Creatinine Lvl (test code = Creatinine 5.92 0.50-1.40 Lvl) [address]08-05 18:13:00 Test Item Value Reference Range Interpretation Comments Sodium Lvl (test code = Sodium Lvl) 134 135-145 [place] 852792-08-05 18:13:00 Test Item Value Reference Range Interpretation Comments Potassium Lvl (test code = Potassium 4.4 3.5-5.1 Lvl) [address]08-05 18:13:00 Test Item Value Reference Range Interpretation Comments Chloride Lvl (test code = Chloride Lvl) 98 95-109 [address]08-05 18:13:00 Test Item Value Reference Range Interpretation Comments CO2 (test code = CO2) 29 24-32 [place] [address]-08-05 18:13:00 Test Item Value Reference Range Interpretation Comments Calcium Lvl (test code = Calcium Lvl) 9.2 8.5-10.5 [address]08-05 18:13:00 Test Item Value Reference Range Interpretation Comments Total Protein (test code = Total 6.6 6.4-8.4 Protein) [address]08-05 18:13:00 Test Item Value Reference Range Interpretation Comments Albumin Lvl (test code = Albumin Lvl) 3.1 3.5-5.0 [place] 852792-08-05 18:13:00 Test Item Value Reference Range Interpretation Comments ALT (test code = ALT) 36 See_Comment [Auto mated message] The system which [employer] nerated this result transmit swathi reference range : <=65. The reference range was not used to interpr et this result as deny l/abnormal. [address]08-05 18:13:00 Test Item Value Reference Range Interpretation Comments AST (test code = AST) 28 See_Comment [Auto mated message] The system which [employer] nerated this result transmit swathi reference range : <=37. The reference range was not used to interpr et this result as deny l/abnormal. [address]08-05 18:13:00 Test Item Value Reference Range Interpretation Comments Alk Phos (test code = Alk Phos) 231 39-136 [address]08-05 18:13:00 Test Item Value Reference Range Interpretation Comments Bili Total (test code = Bili Total) 1.0 0.2-1.3 [address]08-05 18:13:00 Test Item Value Reference Range Interpretation Comments AGAP (test code = AGAP) 11.4 10.0-20.0 [address]08-05 18:13:00 Test Item Value Reference Range Interpretation Comments B/C Ratio (test code = B/C Ratio) 8 1 6-25 [address]08-05 18:13:00 Test Item Value Reference Range Interpretation Comments Globulin (test code = Globulin) 3.5 2.7-4.[address]08-05 18:13:00 Test Item Value Reference Range Interpretation Comments A/G Ratio (test code = A/G Ratio) 0.9 1 0.7-1.6 [address]08-05 18:13:00 Test Item Value Reference Range Interpretation Comments eGFR (test code = eGFR) [address]08-05 18:13:00 Test Item Value Reference Range Interpretation Comments WBC (test code = WBC) 4.8 3.7-10.4 [address]08-05 18:13:00 Test Item Value Reference Range Interpretation Comments RBC (test code = RBC) 1.93 4.70-6.10 [address]08-05 18:13:00 Test Item Value Reference Range Interpretation Comments Hgb (test code = Hgb) 7.2 14.0-18.0 [address]08-05 18:13:00 Test Item Value Reference Range Interpretation Comments Hct (test code = Hct) 21.2 42.0-54.0 [address]08-05 18:13:00 Test Item Value Reference Range Interpretation Comments MCV (test code = MCV) 110.1 80.0-94.0 [address]08-05 18:13:00 Test Item Value Reference Range Interpretation Comments MCH (test code = MCH) 37.1 pg 27.0-31.0 [address]08-05 18:13:00 Test Item Value Reference Range Interpretation Comments MCHC (test code = MCHC) 33.7 32.0-36.0 [place] 441032-08-05 18:13:00 Test Item Value Reference Range Interpretation Comments RDW (test code = RDW) 25.8 11.5-14.5 [place] 441032-08-05 18:13:00 Test Item Value Reference Range Interpretation Comments Platelet (test code = Platelet) 216 133-450 [facility] CenterDsyvcmnSJSQFVQZDY9708-07-36 18:13:00 Test Item Value Reference Range Interpretation Comments MPV (test code = MPV) 8.2 7.4-10.4 [place] [address]-08-05 18:13:00 Test Item Value Reference Range Interpretation Comments PT (test code = PT) 16.9 s 12.0-14.7 [place] [address]-08-05 18:13:00 Test Item Value Reference Range Interpretation Comments INR (test code = INR) 1.39 1 0.85-1.17 [place] 441032-08-05 18:13:00 Test Item Value Reference Range Interpretation Comments PTT (test code = PTT) 35.0 s 22.9-35.8 [place] 441032-08-05 18:13:00 Test Item Value Reference Range Interpretation Comments Plt Morph (test code = Normal (01/02/22 1:13 PM) Plt Morph) [place] [address]-08-05 18:13:00 Test Item Value Reference Range Interpretation Comments Segs (test code = Segs) 76.4 45.0-75.0 [place] 441032-08-05 18:13:00 Test Item Value Reference Range Interpretation Comments Lymphocytes (test code = Lymphocytes) 14.6 20.0-40.0 [place] [address]-08-05 18:13:00 Test Item Value Reference Range Interpretation Comments Monocytes (test code = Monocytes) 7.5 2.0-12.0 [place] [address]-08-05 18:13:00 Test Item Value Reference Range Interpretation Comments Eosinophils (test code = 0.6 See_Comment [A utomated message] The Eosinophils) system which ge nerated this result tra nsmitted reference range : <=4.0. The reference r samantha was not used to int erpret this result as normal/abnormal . [facility] CenterHfwvikhONZULEFNXB2957-08-49 18:13:00 Test Item Value Reference Range Interpretation Comments Basophils (test code = 0.9 See_Comment [Aut omated message] The Basophils) system which ge nerated this result tra nsmitted reference range : <=1.0. The reference r samantha was not used to int erpret this result as normal/abnormal . [facility] CenterWgfzwgmQXJVBXDSYB9996-77-00 18:13:00 Test Item Value Reference Range Interpretation Comments Neutrophils # (test code = Neutrophils 3.7 1.5-8.1 #) [facility] CenterGjmxsihVYIRKORXYQ6518-15-58 18:13:00 Test Item Value Reference Range Interpretation Comments Lymphocytes # (test code = Lymphocytes 0.7 1.0-5.5 #) [facility] CenterIpklfjlTIMZIRECGL9218-70-60 18:13:00 Test Item Value Reference Range Interpretation Comments Monocytes # (test code 0.4 See_Comment [Aut omated message] The = Monocytes #) system which generated this result tra nsmitted reference range : <=0.8. The reference r samantha was not used to int erpret this result as normal/abnormal . [facility]XiodqdaHLWXFCYCRP3860-30-20 18:13:00 Test Item Value Reference Range Interpretation Comments Anisocyte (test code = 2+ *ABN*(01/02/22 1:13 Anisocyte) PM) [facility] Cent[id number] 18:13:00 Test Item Value Reference Range Interpretation Comments Macrocyte (test code = 2+ *ABN*(01/02/22 1:13 Macrocyte) PM) [facility] [id number] 18:13:00 Test Item Value Reference Range Interpretation Comments HS Troponin I (test code = HS Troponin 156 I) [facility] [id number] 18:13:00 Test Item Value Reference Range Interpretation Comments Glucose Lvl (test code = Glucose Lvl) 237 70-99 [facility] [id number] 18:13:00 Test Item Value Reference Range Interpretation Comments BUN (test code = BUN) 46 7-22 [facility] [id number] 18:13:00 Test Item Value Reference Range Interpretation Comments Creatinine Lvl (test code = Creatinine 5.92 0.50-1.40 Lvl) [address]08-05 18:13:00 Test Item Value Reference Range Interpretation Comments Sodium Lvl (test code = Sodium Lvl) 134 135-145 [place] 852792-08-05 18:13:00 Test Item Value Reference Range Interpretation Comments Potassium Lvl (test code = Potassium 4.4 3.5-5.1 Lvl) [place] [address]-08-05 18:13:00 Test Item Value Reference Range Interpretation Comments Chloride Lvl (test code = Chloride Lvl) 98 95-109 [address]08-05 18:13:00 Test Item Value Reference Range Interpretation Comments CO2 (test code = CO2) 29 24-32 [address]08-05 18:13:00 Test Item Value Reference Range Interpretation Comments Calcium Lvl (test code = Calcium Lvl) 9.2 8.5-10.5 [address]08-05 18:13:00 Test Item Value Reference Range Interpretation Comments Total Protein (test code = Total 6.6 6.4-8.4 Protein) [address]08-05 18:13:00 Test Item Value Reference Range Interpretation Comments Albumin Lvl (test code = Albumin Lvl) 3.1 3.5-5.0 [place] [address]-08-05 18:13:00 Test Item Value Reference Range Interpretation Comments ALT (test code = ALT) 36 See_Comment [Auto mated message] The system which ge nerated this result transmit swathi reference range : <=65. The reference range was not used to interpr et this result as deny l/abnormal. [place] [address]-08-05 18:13:00 Test Item Value Reference Range Interpretation Comments AST (test code = AST) 28 See_Comment [Auto mated message] The system which ge nerated this result transmit swathi reference range : <=37. The reference range was not used to interpr et this result as deny l/abnormal. [address]08-05 18:13:00 Test Item Value Reference Range Interpretation Comments Alk Phos (test code = Alk Phos) 231 39-136 [place] [address]-08-05 18:13:00 Test Item Value Reference Range Interpretation Comments Bili Total (test code = Bili Total) 1.0 0.2-1.3 [place] [address]-08-05 18:13:00 Test Item Value Reference Range Interpretation Comments AGAP (test code = AGAP) 11.4 10.0-20.0 [place] [address]-08-05 18:13:00 Test Item Value Reference Range Interpretation Comments B/C Ratio (test code = B/C Ratio) 8 1 6-25 [place] [address]-08-05 18:13:00 Test Item Value Reference Range Interpretation Comments Globulin (test code = Globulin) 3.5 2.7-4.2 [place] [address]-08-05 18:13:00 Test Item Value Reference Range Interpretation Comments A/G Ratio (test code = A/G Ratio) 0.9 1 0.7-1.6 [place] [address]-08-05 18:13:00 Test Item Value Reference Range Interpretation Comments eGFR (test code = eGFR) 9 [place] 441032-08-05 18:13:00 Test Item Value Reference Range Interpretation Comments WBC (test code = WBC) 4.8 3.7-10.4 [place] [address]-08-05 18:13:00 Test Item Value Reference Range Interpretation Comments RBC (test code = RBC) 1.93 4.70-6.10 [place] [address]-08-05 18:13:00 Test Item Value Reference Range Interpretation Comments Hgb (test code = Hgb) 7.2 14.0-18.0 [place] [address]-08-05 18:13:00 Test Item Value Reference Range Interpretation Comments Hct (test code = Hct) 21.2 42.0-54.0 [place] [address]-08-05 18:13:00 Test Item Value Reference Range Interpretation Comments MCV (test code = MCV) 110.1 80.0-94.0 [place] [address]-08-05 18:13:00 Test Item Value Reference Range Interpretation Comments MCH (test code = MCH) 37.1 pg 27.0-31.0 [place] [address]-08-05 18:13:00 Test Item Value Reference Range Interpretation Comments MCHC (test code = MCHC) 33.7 32.0-36.0 [facility] CenterVslhbsfCPKXVWSFYU5066-97-97 18:13:00 Test Item Value Reference Range Interpretation Comments RDW (test code = RDW) 25.8 11.5-14.5 [facility] CenterEwvgctbRDIJJBHMTB0840-94-96 18:13:00 Test Item Value Reference Range Interpretation Comments Platelet (test code = Platelet) 216 133-450 [facility] CenterKacbcklIQXAXZJUET9171-27-39 18:13:00 Test Item Value Reference Range Interpretation Comments MPV (test code = MPV) 8.2 7.4-10.4 [facility] CenterLswxwnwJAKDCXFGLS5970-93-83 18:13:00 Test Item Value Reference Range Interpretation Comments PT (test code = PT) 16.9 s 12.0-14.7 [facility] CenterUhrfxgsJKSGXWDZNI6525-65-83 18:13:00 Test Item Value Reference Range Interpretation Comments INR (test code = INR) 1.39 1 0.85-1.17 [facility] CenterNbikojmRLORVGHMRY2593-16-35 18:13:00 Test Item Value Reference Range Interpretation Comments PTT (test code = PTT) 35.0 s 22.9-35.8 [facility] CenterTxbtmcyUIDCEFTBRI1192-44-19 18:13:00 Test Item Value Reference Range Interpretation Comments Plt Morph (test code = Normal (01/02/22 1:13 PM) Plt Morph) [facility] CenterVqfesrcZNWCNMOSZH3414-70-50 18:13:00 Test Item Value Reference Range Interpretation Comments Segs (test code = Segs) 76.4 45.0-75.0 [facility] CenterMoskjzkSGVSVAXZMB8454-05-78 18:13:00 Test Item Value Reference Range Interpretation Comments Lymphocytes (test code = Lymphocytes) 14.6 20.0-40.0 [place] 441032-08-05 18:13:00 Test Item Value Reference Range Interpretation Comments Monocytes (test code = Monocytes) 7.5 2.0-12.0 [place] [address]-08-05 18:13:00 Test Item Value Reference Range Interpretation Comments Eosinophils (test code = 0.6 See_Comment [A utomated message] The Eosinophils) system which ge nerated this result tra nsmitted reference range : <=4.0. The reference r samantha was not used to int erpret this result as normal/abnormal . [facility] CenterCwdiqoeBDSEFHIWDV3177-81-22 18:13:00 Test Item Value Reference Range Interpretation Comments Basophils (test code = 0.9 See_Comment [Aut omated message] The Basophils) system which ge nerated this result tra nsmitted reference range : <=1.0. The reference r samantha was not used to int erpret this result as normal/abnormal . [facility] CenterZcqinhrMZXOLYEHCL8162-98-54 18:13:00 Test Item Value Reference Range Interpretation Comments Neutrophils # (test code = Neutrophils 3.7 1.5-8.1 #) [facility] CenterU[id number] 18:13:00 Test Item Value Reference Range Interpretation Comments Lymphocytes # (test code = Lymphocytes 0.7 1.0-5.5 #) [facility] CenterKulvdsbJNIPVEZIYK6676-90-82 18:13:00 Test Item Value Reference Range Interpretation Comments Monocytes # (test code 0.4 See_Comment [Aut omated message] The = Monocytes #) system which generated this result tra nsmitted reference range : <=0.8. The reference r samantha was not used to int erpret this result as normal/abnormal . [facility] CenterEgbvmsmWPSETJGZTF3510-63-02 18:13:00 Test Item Value Reference Range Interpretation Comments Anisocyte (test code = 2+ *ABN*(01/02/22 1:13 Anisocyte) PM) [facility] CenterXhvufbuGRQEAVBLIF3454-84-04 18:13:00 Test Item Value Reference Range Interpretation Comments Macrocyte (test code = 2+ *ABN*(01/02/22 1:13 Macrocyte) PM) [facility] [id number] 18:13:00 Test Item Value Reference Range Interpretation Comments HS Troponin I (test code = HS Troponin 156 I) [facility] [id number] 18:13:00 Test Item Value Reference Range Interpretation Comments Glucose Lvl (test code = Glucose Lvl) 237 70-99 [facility]2022-08-05 18:13:00 Test Item Value Reference Range Interpretation Comments BUN (test code = BUN) 46 7-22 [facility]2022-08-05 18:13:00 Test Item Value Reference Range Interpretation Comments Creatinine Lvl (test code = Creatinine 5.92 0.50-1.40 Lvl) [place] 852792-08-05 18:13:00 Test Item Value Reference Range Interpretation Comments Sodium Lvl (test code = Sodium Lvl) 134 135-145 [place] [address]-08-05 18:13:00 Test Item Value Reference Range Interpretation Comments Potassium Lvl (test code = Potassium 4.4 3.5-5.1 Lvl) [address]08-05 18:13:00 Test Item Value Reference Range Interpretation Comments Chloride Lvl (test code = Chloride Lvl) 98 95-109 [place] [address]-08-05 18:13:00 Test Item Value Reference Range Interpretation Comments CO2 (test code = CO2) 29 24-32 [address]08-05 18:13:00 Test Item Value Reference Range Interpretation Comments Calcium Lvl (test code = Calcium Lvl) 9.2 8.5-10.5 [place] [address]-08-05 18:13:00 Test Item Value Reference Range Interpretation Comments Total Protein (test code = Total 6.6 6.4-8.4 Protein) [address]08-05 18:13:00 Test Item Value Reference Range Interpretation Comments Albumin Lvl (test code = Albumin Lvl) 3.1 3.5-5.0 [address]08-05 18:13:00 Test Item Value Reference Range Interpretation Comments ALT (test code = ALT) 36 See_Comment [Auto mated message] The system which ge nerated this result transmit swathi reference range : <=65. The reference range was not used to interpr et this result as deny l/abnormal. [address]08-05 18:13:00 Test Item Value Reference Range Interpretation Comments AST (test code = AST) 28 See_Comment [Auto mated message] The system which ge nerated this result transmit swathi reference range : <=37. The reference range was not used to interpr et this result as deny l/abnormal. [place] [address]-08-05 18:13:00 Test Item Value Reference Range Interpretation Comments Alk Phos (test code = Alk Phos) 231 39-136 [place] [address]-08-05 18:13:00 Test Item Value Reference Range Interpretation Comments Bili Total (test code = Bili Total) 1.0 0.2-1.3 [place] [address]-08-05 18:13:00 Test Item Value Reference Range Interpretation Comments AGAP (test code = AGAP) 11.4 10.0-20.0 [place] 852792-08-05 18:13:00 Test Item Value Reference Range Interpretation Comments B/C Ratio (test code = B/C Ratio) 8 1 6-25 [place] [address]-08-05 18:13:00 Test Item Value Reference Range Interpretation Comments Globulin (test code = Globulin) 3.5 2.7-4.2 [place] [address]-08-05 18:13:00 Test Item Value Reference Range Interpretation Comments A/G Ratio (test code = A/G Ratio) 0.9 1 0.7-1.6 [place] [address]-08-05 18:13:00 Test Item Value Reference Range Interpretation Comments eGFR (test code = eGFR) 9 [place] 441032-08-05 18:13:00 Test Item Value Reference Range Interpretation Comments WBC (test code = WBC) 4.8 3.7-10.4 [place] [address]-08-05 18:13:00 Test Item Value Reference Range Interpretation Comments RBC (test code = RBC) 1.93 4.70-6.10 [place] [address]-08-05 18:13:00 Test Item Value Reference Range Interpretation Comments Hgb (test code = Hgb) 7.2 14.0-18.0 [place] 441032-08-05 18:13:00 Test Item Value Reference Range Interpretation Comments Hct (test code = Hct) 21.2 42.0-54.0 [place] [address]-08-05 18:13:00 Test Item Value Reference Range Interpretation Comments MCV (test code = MCV) 110.1 80.0-94.0 [place] [address]-08-05 18:13:00 Test Item Value Reference Range Interpretation Comments MCH (test code = MCH) 37.1 pg 27.0-31.0 [place] [address]-08-05 18:13:00 Test Item Value Reference Range Interpretation Comments MCHC (test code = MCHC) 33.7 32.0-36.0 [place] [address]-08-05 18:13:00 Test Item Value Reference Range Interpretation Comments RDW (test code = RDW) 25.8 11.5-14.5 [place] [address]-08-05 18:13:00 Test Item Value Reference Range Interpretation Comments Platelet (test code = Platelet) 216 133-450 [place] 441032-08-05 18:13:00 Test Item Value Reference Range Interpretation Comments MPV (test code = MPV) 8.2 7.4-10.4 [place] [address]-08-05 18:13:00 Test Item Value Reference Range Interpretation Comments PT (test code = PT) 16.9 s 12.0-14.7 [place] [address]-08-05 18:13:00 Test Item Value Reference Range Interpretation Comments INR (test code = INR) 1.39 1 0.85-1.17 [place] [address]-08-05 18:13:00 Test Item Value Reference Range Interpretation Comments PTT (test code = PTT) 35.0 s 22.9-35.8 [place] [address]-08-05 18:13:00 Test Item Value Reference Range Interpretation Comments Plt Morph (test code = Normal (01/02/22 1:13 PM) Plt Morph) [place] [address]-08-05 18:13:00 Test Item Value Reference Range Interpretation Comments Segs (test code = Segs) 76.4 45.0-75.0 [place] [address]-08-05 18:13:00 Test Item Value Reference Range Interpretation Comments Lymphocytes (test code = Lymphocytes) 14.6 20.0-40.0 [place] [address]-08-05 18:13:00 Test Item Value Reference Range Interpretation Comments Monocytes (test code = Monocytes) 7.5 2.0-12.0 [place] [address]-08-05 18:13:00 Test Item Value Reference Range Interpretation Comments Eosinophils (test code = 0.6 See_Comment [A utomated message] The Eosinophils) system which ge nerated this result tra nsmitted reference range : <=4.0. The reference r samantha was not used to int erpret this result as normal/abnormal . [place] 441032-08-05 18:13:00 Test Item Value Reference Range Interpretation Comments Basophils (test code = 0.9 See_Comment [Aut omated message] The Basophils) system which ge nerated this result tra nsmitted reference range : <=1.0. The reference r samantha was not used to int erpret this result as normal/abnormal . [place] 441032-08-05 18:13:00 Test Item Value Reference Range Interpretation Comments Neutrophils # (test code = Neutrophils 3.7 1.5-8.1 #) [facility] CenterAwviyfcYGTXGXZAJT3243-04-42 18:13:00 Test Item Value Reference Range Interpretation Comments Lymphocytes # (test code = Lymphocytes 0.7 1.0-5.5 #) [facility] CenterUpqvpfqHYIZFROTCQ6408-32-59 18:13:00 Test Item Value Reference Range Interpretation Comments Monocytes # (test code 0.4 See_Comment [Aut omated message] The = Monocytes #) system which generated this result tra nsmitted reference range : <=0.8. The reference r samantha was not used to int erpret this result as normal/abnormal . [facility] CenterMllqtcbGMCWIGNAKQ8682-88-51 18:13:00 Test Item Value Reference Range Interpretation Comments Anisocyte (test code = 2+ *ABN*(01/02/22 1:13 Anisocyte) PM) [place] 441032-08-05 18:13:00 Test Item Value Reference Range Interpretation Comments Macrocyte (test code = 2+ *ABN*(01/02/22 1:13 Macrocyte) PM) [facility] [id number] 18:13:00 Test Item Value Reference Range Interpretation Comments HS Troponin I (test code = HS Troponin 156 I) [facility]2022-08-05 18:13:00 Test Item Value Reference Range Interpretation Comments Glucose Lvl (test code = Glucose Lvl) 237 70-99 [facility]2022-08-05 18:13:00 Test Item Value Reference Range Interpretation Comments BUN (test code = BUN) 46 7-22 [place] 852792-08-05 18:13:00 Test Item Value Reference Range Interpretation Comments Creatinine Lvl (test code = Creatinine 5.92 0.50-1.40 Lvl) [facility]2022-08-05 18:13:00 Test Item Value Reference Range Interpretation Comments Sodium Lvl (test code = Sodium Lvl) 134 135-145 [facility] [id number] 18:13:00 Test Item Value Reference Range Interpretation Comments Potassium Lvl (test code = Potassium 4.4 3.5-5.1 Lvl) [place] 852792-08-05 18:13:00 Test Item Value Reference Range Interpretation Comments Chloride Lvl (test code = Chloride Lvl) 98 95-109 [facility] [id number] 18:13:00 Test Item Value Reference Range Interpretation Comments CO2 (test code = CO2) 29 24-32 [facility] [id number] 18:13:00 Test Item Value Reference Range Interpretation Comments Calcium Lvl (test code = Calcium Lvl) 9.2 8.5-10.5 [facility] [id number] 18:13:00 Test Item Value Reference Range Interpretation Comments Total Protein (test code = Total 6.6 6.4-8.4 Protein) [facility] [id number] 18:13:00 Test Item Value Reference Range Interpretation Comments Albumin Lvl (test code = Albumin Lvl) 3.1 3.5-5.0 [facility] [id number] 18:13:00 Test Item Value Reference Range Interpretation Comments ALT (test code = ALT) 36 See_Comment [Auto mated message] The system which ge nerated this result transmit swathi reference range : <=65. The reference range was not used to interpr et this result as deny l/abnormal. [facility] [id number] 18:13:00 Test Item Value Reference Range Interpretation Comments AST (test code = AST) 28 See_Comment [Auto mated message] The system which ge nerated this result transmit swathi reference range : <=37. The reference range was not used to interpr et this result as deny l/abnormal. [facility] [id number] 18:13:00 Test Item Value Reference Range Interpretation Comments Alk Phos (test code = Alk Phos) 231 39-136 [facility] [id number] 18:13:00 Test Item Value Reference Range Interpretation Comments Bili Total (test code = Bili Total) 1.0 0.2-1.3 [address]08-05 18:13:00 Test Item Value Reference Range Interpretation Comments AGAP (test code = AGAP) 11.4 10.0-20.0 [address]08-05 18:13:00 Test Item Value Reference Range Interpretation Comments B/C Ratio (test code = B/C Ratio) 8 1 6-25 [address]08-05 18:13:00 Test Item Value Reference Range Interpretation Comments Globulin (test code = Globulin) 3.5 2.7-4.2 [address]08-05 18:13:00 Test Item Value Reference Range Interpretation Comments A/G Ratio (test code = A/G Ratio) 0.9 1 0.7-1.6 [address]08-05 18:13:00 Test Item Value Reference Range Interpretation Comments eGFR (test code = eGFR) 9 [place] [address]-08-05 18:13:00 Test Item Value Reference Range Interpretation Comments WBC (test code = WBC) 4.8 3.7-10.4 [address]08-05 18:13:00 Test Item Value Reference Range Interpretation Comments RBC (test code = RBC) 1.93 4.70-6.10 [address]08-05 18:13:00 Test Item Value Reference Range Interpretation Comments Hgb (test code = Hgb) 7.2 14.0-18.0 [address]08-05 18:13:00 Test Item Value Reference Range Interpretation Comments Hct (test code = Hct) 21.2 42.0-54.0 [address]08-05 18:13:00 Test Item Value Reference Range Interpretation Comments MCV (test code = MCV) 110.1 80.0-94.0 [address]08-05 18:13:00 Test Item Value Reference Range Interpretation Comments MCH (test code = MCH) 37.1 pg 27.0-31.0 [place] [address]-08-05 18:13:00 Test Item Value Reference Range Interpretation Comments MCHC (test code = MCHC) 33.7 32.0-36.0 [place] [address]-08-05 18:13:00 Test Item Value Reference Range Interpretation Comments RDW (test code = RDW) 25.8 11.5-14.5 [place] [address]-08-05 18:13:00 Test Item Value Reference Range Interpretation Comments Platelet (test code = Platelet) 216 133-450 [place] 441032-08-05 18:13:00 Test Item Value Reference Range Interpretation Comments MPV (test code = MPV) 8.2 7.4-10.4 [place] [address]-08-05 18:13:00 Test Item Value Reference Range Interpretation Comments PT (test code = PT) 16.9 s 12.0-14.7 [place] [address]-08-05 18:13:00 Test Item Value Reference Range Interpretation Comments INR (test code = INR) 1.39 1 0.85-1.17 [place] [address]-08-05 18:13:00 Test Item Value Reference Range Interpretation Comments PTT (test code = PTT) 35.0 s 22.9-35.8 [place] [address]-08-05 18:13:00 Test Item Value Reference Range Interpretation Comments Plt Morph (test code = Normal (01/02/22 1:13 PM) Plt Morph) [place] 441032-08-05 18:13:00 Test Item Value Reference Range Interpretation Comments Segs (test code = Segs) 76.4 45.0-75.0 [place] [address]-08-05 18:13:00 Test Item Value Reference Range Interpretation Comments Lymphocytes (test code = Lymphocytes) 14.6 20.0-40.0 [place] [address]-08-05 18:13:00 Test Item Value Reference Range Interpretation Comments Monocytes (test code = Monocytes) 7.5 2.0-12.0 [place] [address]-08-05 18:13:00 Test Item Value Reference Range Interpretation Comments Eosinophils (test code = 0.6 See_Comment [A utomated message] The Eosinophils) system which ge nerated this result tra nsmitted reference range : <=4.0. The reference r samantha was not used to int erpret this result as normal/abnormal . [place] 441032-08-05 18:13:00 Test Item Value Reference Range Interpretation Comments Basophils (test code = 0.9 See_Comment [Aut omated message] The Basophils) system which ge nerated this result tra nsmitted reference range : <=1.0. The reference r samantha was not used to int erpret this result as normal/abnormal . [id number] 18:13:00 Test Item Value Reference Range Interpretation Comments Neutrophils # (test code = Neutrophils 3.7 1.5-8.1 #) [facility]WestXbrtbbqBZLSVXVVKP0820-36-51 18:13:00 Test Item Value Reference Range Interpretation Comments Lymphocytes # (test code = Lymphocytes 0.7 1.0-5.5 #) [facility][id number] 18:13:00 Test Item Value Reference Range Interpretation Comments Monocytes # (test code 0.4 See_Comment [Aut omated message] The = Monocytes #) system which generated this result tra nsmitted reference range : <=0.8. The reference r saamntha was not used to int erpret this result as normal/abnormal . [facility]WestBxqwgneXONSITDQZU4798-62-64 18:13:00 Test Item Value Reference Range Interpretation Comments Anisocyte (test code = 2+ *ABN*(01/02/22 1:13 Anisocyte) PM) [facility]DvxayjyKIAQZXJXWK0519-94-87 18:13:00 Test Item Value Reference Range Interpretation Comments Macrocyte (test code = 2+ *ABN*(01/02/22 1:13 Macrocyte) PM) [facility] [id number] 18:13:00 Test Item Value Reference Range Interpretation Comments HS Troponin I (test code = HS Troponin 156 I) [facility] [id number] 18:13:00 Test Item Value Reference Range Interpretation Comments Glucose Lvl (test code = Glucose Lvl) 237 70-99 [facility] [id number] 18:13:00 Test Item Value Reference Range Interpretation Comments BUN (test code = BUN) 46 7-22 [facility] [id number] 18:13:00 Test Item Value Reference Range Interpretation Comments Creatinine Lvl (test code = Creatinine 5.92 0.50-1.40 Lvl) [facility] [id number] 18:13:00 Test Item Value Reference Range Interpretation Comments Sodium Lvl (test code = Sodium Lvl) 134 135-145 [place] 852792-08-05 18:13:00 Test Item Value Reference Range Interpretation Comments Potassium Lvl (test code = Potassium 4.4 3.5-5.1 Lvl) [place] [address]-08-05 18:13:00 Test Item Value Reference Range Interpretation Comments Chloride Lvl (test code = Chloride Lvl) 98 95-109 [place] [address]-08-05 18:13:00 Test Item Value Reference Range Interpretation Comments CO2 (test code = CO2) 29 24-32 [address]08-05 18:13:00 Test Item Value Reference Range Interpretation Comments Calcium Lvl (test code = Calcium Lvl) 9.2 8.5-10.5 [address]08-05 18:13:00 Test Item Value Reference Range Interpretation Comments Total Protein (test code = Total 6.6 6.4-8.4 Protein) [address]08-05 18:13:00 Test Item Value Reference Range Interpretation Comments Albumin Lvl (test code = Albumin Lvl) 3.1 3.5-5.0 [address]08-05 18:13:00 Test Item Value Reference Range Interpretation Comments ALT (test code = ALT) 36 See_Comment [Auto mated message] The system which ge nerated this result transmit swathi reference range : <=65. The reference range was not used to interpr et this result as deny l/abnormal. [address]08-05 18:13:00 Test Item Value Reference Range Interpretation Comments AST (test code = AST) 28 See_Comment [Auto mated message] The system which ge nerated this result transmit swathi reference range : <=37. The reference range was not used to interpr et this result as edny l/abnormal. [facility] [id number] 18:13:00 Test Item Value Reference Range Interpretation Comments Alk Phos (test code = Alk Phos) 231 39-136 [place] [address]-08-05 18:13:00 Test Item Value Reference Range Interpretation Comments Bili Total (test code = Bili Total) 1.0 0.2-1.[address]08-05 18:13:00 Test Item Value Reference Range Interpretation Comments AGAP (test code = AGAP) 11.4 10.0-20.0 [place] 852792-08-05 18:13:00 Test Item Value Reference Range Interpretation Comments B/C Ratio (test code = B/C Ratio) 8 1 6-25 [place] [address]-08-05 18:13:00 Test Item Value Reference Range Interpretation Comments Globulin (test code = Globulin) 3.5 2.7-4.2 [place] 852792-08-05 18:13:00 Test Item Value Reference Range Interpretation Comments A/G Ratio (test code = A/G Ratio) 0.9 1 0.7-1.6 [place] [address]-08-05 18:13:00 Test Item Value Reference Range Interpretation Comments eGFR (test code = eGFR) 9 [place] 441032-08-05 18:13:00 Test Item Value Reference Range Interpretation Comments WBC (test code = WBC) 4.8 3.7-10.4 [place] 441032-08-05 18:13:00 Test Item Value Reference Range Interpretation Comments RBC (test code = RBC) 1.93 4.70-6.10 [place] [address]-08-05 18:13:00 Test Item Value Reference Range Interpretation Comments Hgb (test code = Hgb) 7.2 14.0-18.0 [place] [address]-08-05 18:13:00 Test Item Value Reference Range Interpretation Comments Hct (test code = Hct) 21.2 42.0-54.0 [place] [address]-08-05 18:13:00 Test Item Value Reference Range Interpretation Comments MCV (test code = MCV) 110.1 80.0-94.0 [place] [address]-08-05 18:13:00 Test Item Value Reference Range Interpretation Comments MCH (test code = MCH) 37.1 pg 27.0-31.0 [place] [address]-08-05 18:13:00 Test Item Value Reference Range Interpretation Comments MCHC (test code = MCHC) 33.7 32.0-36.0 [place] [address]-08-05 18:13:00 Test Item Value Reference Range Interpretation Comments RDW (test code = RDW) 25.8 11.5-14.5 [place] [address]-08-05 18:13:00 Test Item Value Reference Range Interpretation Comments Platelet (test code = Platelet) 216 133-450 [place] 441032-08-05 18:13:00 Test Item Value Reference Range Interpretation Comments MPV (test code = MPV) 8.2 7.4-10.4 [place] [address]-08-05 18:13:00 Test Item Value Reference Range Interpretation Comments PT (test code = PT) 16.9 s 12.0-14.7 [place] [address]-08-05 18:13:00 Test Item Value Reference Range Interpretation Comments INR (test code = INR) 1.39 1 0.85-1.17 [place] [address]-08-05 18:13:00 Test Item Value Reference Range Interpretation Comments PTT (test code = PTT) 35.0 s 22.9-35.8 [place] [address]-08-05 18:13:00 Test Item Value Reference Range Interpretation Comments Plt Morph (test code = Normal (01/02/22 1:13 PM) Plt Morph) [id number] 18:13:00 Test Item Value Reference Range Interpretation Comments Segs (test code = Segs) 76.4 45.0-75.0 [place] [address]-08-05 18:13:00 Test Item Value Reference Range Interpretation Comments Lymphocytes (test code = Lymphocytes) 14.6 20.0-40.0 [place] [address]-08-05 18:13:00 Test Item Value Reference Range Interpretation Comments Monocytes (test code = Monocytes) 7.5 2.0-12.0 [place] [address]-08-05 18:13:00 Test Item Value Reference Range Interpretation Comments Eosinophils (test code = 0.6 See_Comment [A utomated message] The Eosinophils) system which ge nerated this result tra nsmitted reference range : <=4.0. The reference r samantha was not used to int erpret this result as normal/abnormal . [place] [address]-08-05 18:13:00 Test Item Value Reference Range Interpretation Comments Basophils (test code = 0.9 See_Comment [Aut omated message] The Basophils) system which ge nerated this result tra nsmitted reference range : <=1.0. The reference r samantha was not used to int erpret this result as normal/abnormal . [facility] [id number] 18:13:00 Test Item Value Reference Range Interpretation Comments Neutrophils # (test code = Neutrophils 3.7 1.5-8.1 #) [facility]EblrxvtCDYKQTTJGZ5260-21-09 18:13:00 Test Item Value Reference Range Interpretation Comments Lymphocytes # (test code = Lymphocytes 0.7 1.0-5.5 #) [facility] C[id number] 18:13:00 Test Item Value Reference Range Interpretation Comments Monocytes # (test code 0.4 See_Comment [Aut omated message] The = Monocytes #) system which generated this result tra nsmitted reference range : <=0.8. The reference r samantha was not used to int erpret this result as normal/abnormal . [facility] CenterVptkdojLQJBKUFYQE8552-82-18 18:13:00 Test Item Value Reference Range Interpretation Comments Anisocyte (test code = 2+ *ABN*(01/02/22 1:13 Anisocyte) PM) [facility] CenterFxzvgxiOLCTQIAVYZ5995-38-09 18:13:00 Test Item Value Reference Range Interpretation Comments Macrocyte (test code = 2+ *ABN*(01/02/22 1:13 Macrocyte) PM) [facility] [id number] 18:13:00 Test Item Value Reference Range Interpretation Comments HS Troponin I (test code = HS Troponin 156 I) [facility] [id number] 18:13:00 Test Item Value Reference Range Interpretation Comments Glucose Lvl (test code = Glucose Lvl) 237 70-99 [facility] [id number] 18:13:00 Test Item Value Reference Range Interpretation Comments BUN (test code = BUN) 46 7-22 [facility] [id number] 18:13:00 Test Item Value Reference Range Interpretation Comments Creatinine Lvl (test code = Creatinine 5.92 0.50-1.40 Lvl) [facility]2022-08-05 18:13:00 Test Item Value Reference Range Interpretation Comments Sodium Lvl (test code = Sodium Lvl) 134 135-145 [facility] [id number] 18:13:00 Test Item Value Reference Range Interpretation Comments Potassium Lvl (test code = Potassium 4.4 3.5-5.1 Lvl) [address]08-05 18:13:00 Test Item Value Reference Range Interpretation Comments Chloride Lvl (test code = Chloride Lvl) 98 95-109 [address]08-05 18:13:00 Test Item Value Reference Range Interpretation Comments CO2 (test code = CO2) 29 24-32 [address]08-05 18:13:00 Test Item Value Reference Range Interpretation Comments Calcium Lvl (test code = Calcium Lvl) 9.2 8.5-10.5 [facility] [id number] 18:13:00 Test Item Value Reference Range Interpretation Comments Total Protein (test code = Total 6.6 6.4-8.4 Protein) [address]08-05 18:13:00 Test Item Value Reference Range Interpretation Comments Albumin Lvl (test code = Albumin Lvl) 3.1 3.5-5.0 [facility] [id number] 18:13:00 Test Item Value Reference Range Interpretation Comments ALT (test code = ALT) 36 See_Comment [Auto mated message] The system which ge nerated this result transmit swathi reference range : <=65. The reference range was not used to interpr et this result as deny l/abnormal. [facility] [id number] 18:13:00 Test Item Value Reference Range Interpretation Comments AST (test code = AST) 28 See_Comment [Auto mated message] The system which ge nerated this result transmit swathi reference range : <=37. The reference range was not used to interpr et this result as deny l/abnormal. [facility] [id number] 18:13:00 Test Item Value Reference Range Interpretation Comments Alk Phos (test code = Alk Phos) 231 39-136 [facility] [id number] 18:13:00 Test Item Value Reference Range Interpretation Comments Bili Total (test code = Bili Total) 1.0 0.2-1.3 [facility] [id number] 18:13:00 Test Item Value Reference Range Interpretation Comments AGAP (test code = AGAP) 11.4 10.0-20.0 [place] 852792-08-05 18:13:00 Test Item Value Reference Range Interpretation Comments B/C Ratio (test code = B/C Ratio) 8 1 6-25 [place] [address]-08-05 18:13:00 Test Item Value Reference Range Interpretation Comments Globulin (test code = Globulin) 3.5 2.7-4.2 [place] 852792-08-05 18:13:00 Test Item Value Reference Range Interpretation Comments A/G Ratio (test code = A/G Ratio) 0.9 1 0.7-1.6 [place] [address]-08-05 18:13:00 Test Item Value Reference Range Interpretation Comments eGFR (test code = eGFR) 9 [place] 441032-08-05 18:13:00 Test Item Value Reference Range Interpretation Comments WBC (test code = WBC) 4.8 3.7-10.4 [place] 441032-08-05 18:13:00 Test Item Value Reference Range Interpretation Comments RBC (test code = RBC) 1.93 4.70-6.10 [place] 441032-08-05 18:13:00 Test Item Value Reference Range Interpretation Comments Hgb (test code = Hgb) 7.2 14.0-18.0 [place] [address]-08-05 18:13:00 Test Item Value Reference Range Interpretation Comments Hct (test code = Hct) 21.2 42.0-54.0 [place] 441032-08-05 18:13:00 Test Item Value Reference Range Interpretation Comments MCV (test code = MCV) 110.1 80.0-94.0 [place] [address]-08-05 18:13:00 Test Item Value Reference Range Interpretation Comments MCH (test code = MCH) 37.1 pg 27.0-31.0 [place] [address]-08-05 18:13:00 Test Item Value Reference Range Interpretation Comments MCHC (test code = MCHC) 33.7 32.0-36.0 [place] [address]-08-05 18:13:00 Test Item Value Reference Range Interpretation Comments RDW (test code = RDW) 25.8 11.5-14.5 [place] [address]-08-05 18:13:00 Test Item Value Reference Range Interpretation Comments Platelet (test code = Platelet) 216 133-450 [place] 441032-08-05 18:13:00 Test Item Value Reference Range Interpretation Comments MPV (test code = MPV) 8.2 7.4-10.4 [place] [address]-08-05 18:13:00 Test Item Value Reference Range Interpretation Comments PT (test code = PT) 16.9 s 12.0-14.7 [place] [address]-08-05 18:13:00 Test Item Value Reference Range Interpretation Comments INR (test code = INR) 1.39 1 0.85-1.17 [place] [address]-08-05 18:13:00 Test Item Value Reference Range Interpretation Comments PTT (test code = PTT) 35.0 s 22.9-35.8 [place] [address]-08-05 18:13:00 Test Item Value Reference Range Interpretation Comments Plt Morph (test code = Normal (01/02/22 1:13 PM) Plt Morph) [place] 441032-08-05 18:13:00 Test Item Value Reference Range Interpretation Comments Segs (test code = Segs) 76.4 45.0-75.0 [place] [address]-08-05 18:13:00 Test Item Value Reference Range Interpretation Comments Lymphocytes (test code = Lymphocytes) 14.6 20.0-40.0 [place] [address]-08-05 18:13:00 Test Item Value Reference Range Interpretation Comments Monocytes (test code = Monocytes) 7.5 2.0-12.0 [place] [address]-08-05 18:13:00 Test Item Value Reference Range Interpretation Comments Eosinophils (test code = 0.6 See_Comment [A utomated message] The Eosinophils) system which ge nerated this result tra nsmitted reference range : <=4.0. The reference r samantha was not used to int erpret this result as normal/abnormal . [place] [address]-08-05 18:13:00 Test Item Value Reference Range Interpretation Comments Basophils (test code = 0.9 See_Comment [Aut omated message] The Basophils) system which ge nerated this result tra nsmitted reference range : <=1.0. The reference r samantha was not used to int erpret this result as normal/abnormal . [place] [address]-08-05 18:13:00 Test Item Value Reference Range Interpretation Comments Neutrophils # (test code = Neutrophils 3.7 1.5-8.1 #) [place] [address]-08-05 18:13:00 Test Item Value Reference Range Interpretation Comments Lymphocytes # (test code = Lymphocytes 0.7 1.0-5.5 #) [place] [address]-08-05 18:13:00 Test Item Value Reference Range Interpretation Comments Monocytes # (test code 0.4 See_Comment [Aut omated message] The = Monocytes #) system which generated this result tra nsmitted reference range : <=0.8. The reference r samantha was not used to int erpret this result as normal/abnormal . [address]08-05 18:13:00 Test Item Value Reference Range Interpretation Comments Anisocyte (test code = 2+ *ABN*(01/02/22 1:13 Anisocyte) PM) [address]08-05 18:13:00 Test Item Value Reference Range Interpretation Comments Macrocyte (test code = 2+ *ABN*(01/02/22 1:13 Macrocyte) PM) [facility]2022-07-19 09:29:00 Test Item Value Reference Range Interpretation Comments Glucose Lvl (test code = Glucose Lvl) 199 70-99 [place] 852792-07-19 09:29:00 Test Item Value Reference Range Interpretation Comments BUN (test code = BUN) 28 7-22 [place] 852792-07-19 09:29:00 Test Item Value Reference Range Interpretation Comments Creatinine Lvl (test code = Creatinine 4.84 0.50-1.40 Lvl) [place] 852792-07-19 09:29:00 Test Item Value Reference Range Interpretation Comments Sodium Lvl (test code = Sodium Lvl) 134 135-145 [place] 852792-07-19 09:29:00 Test Item Value Reference Range Interpretation Comments Potassium Lvl (test code = Potassium 4.3 3.5-5.1 Lvl) [place] 852792-07-19 09:29:00 Test Item Value Reference Range Interpretation Comments Chloride Lvl (test code = Chloride Lvl) 100 95-109 [facility] [id number] 09:29:00 Test Item Value Reference Range Interpretation Comments CO2 (test code = CO2) 28 24-32 [facility] HospitalCheas[facility] Roasting CompanyJEFF V[place]LE [id number] 09:29:00 Test Item Value Reference Range Interpretation Comments Calcium Lvl (test code = Calcium Lvl) 9.4 8.5-10.5 [facility] [id number] 09:29:00 Test Item Value Reference Range Interpretation Comments Total Protein (test code = Total 6.6 6.4-8.4 Protein) [facility] [id number] 09:29:00 Test Item Value Reference Range Interpretation Comments Albumin Lvl (test code = Albumin Lvl) 3.0 3.5-5.0 [facility] [id number] 09:29:00 Test Item Value Reference Range Interpretation Comments ALT (test code = ALT) 92 See_Comment [Auto mated message] The system which ge nerated this result transmit swathi reference range : <=65. The reference range was not used to interpr et this result as deny l/abnormal. [facility] [employer] [id number] 09:29:00 Test Item Value Reference Range Interpretation Comments AST (test code = AST) 123 See_Comment [Auto mated message] The system which ge nerated this result transmit swathi reference range : <=37. The reference range was not used to interpr et this result as deny l/abnormal. [facility] [employer] [id number] 09:29:00 Test Item Value Reference Range Interpretation Comments Alk Phos (test code = Alk Phos) 272 39-136 [facility] [id number] 09:29:00 Test Item Value Reference Range Interpretation Comments Bili Total (test code = Bili Total) 0.9 0.2-1.3 [facility] [id number] 09:29:00 Test Item Value Reference Range Interpretation Comments AGAP (test code = AGAP) 10.3 10.0-20.0 [facility] [id number] 09:29:00 Test Item Value Reference Range Interpretation Comments B/C Ratio (test code = B/C Ratio) 6 1 6-25 [place] 852792-07-19 09:29:00 Test Item Value Reference Range Interpretation Comments Globulin (test code = Globulin) 3.6 2.7-4.2 [place] [address]-07-19 09:29:00 Test Item Value Reference Range Interpretation Comments A/G Ratio (test code = A/G Ratio) 0.8 1 0.7-1.6 [place] [address]-07-19 09:29:00 Test Item Value Reference Range Interpretation Comments eGFR (test code = eGFR) 12 [facility]2022-07-19 09:29:00 Test Item Value Reference Range Interpretation Comments Phosphorus (test code = Phosphorus) 4.3 2.5-4.5 [place] 441032-07-19 09:29:00 Test Item Value Reference Range Interpretation Comments WBC (test code = WBC) 4.7 3.7-10.4 [place] 441032-07-19 09:29:00 Test Item Value Reference Range Interpretation Comments RBC (test code = RBC) 2.14 4.70-6.10 [place] 441032-07-19 09:29:00 Test Item Value Reference Range Interpretation Comments Hgb (test code = Hgb) 7.6 14.0-18.0 [place] 441032-07-19 09:29:00 Test Item Value Reference Range Interpretation Comments Hct (test code = Hct) 22.8 42.0-54.0 [place] 441032-07-19 09:29:00 Test Item Value Reference Range Interpretation Comments MCV (test code = MCV) 106.6 80.0-94.0 [place] 441032-07-19 09:29:00 Test Item Value Reference Range Interpretation Comments MCH (test code = MCH) 35.6 pg 27.0-31.0 [place] 441032-07-19 09:29:00 Test Item Value Reference Range Interpretation Comments MCHC (test code = MCHC) 33.4 32.0-36.0 [place] 441032-07-19 09:29:00 Test Item Value Reference Range Interpretation Comments RDW (test code = RDW) 24.3 11.5-14.5 [place] 441032-07-19 09:29:00 Test Item Value Reference Range Interpretation Comments Platelet (test code = Platelet) 148 133-450 [place] [address]-07-19 09:29:00 Test Item Value Reference Range Interpretation Comments MPV (test code = MPV) 8.1 7.4-10.4 [place] [address]-07-19 09:29:00 Test Item Value Reference Range Interpretation Comments D-Dimer (test code = D-Dimer) 3.63 [place] [address]-07-19 09:29:00 Test Item Value Reference Range Interpretation Comments Segs (test code = Segs) 74.8 45.0-75.0 [place] [address]-07-19 09:29:00 Test Item Value Reference Range Interpretation Comments Lymphocytes (test code = Lymphocytes) 15.5 20.0-40.0 [place] [address]-07-19 09:29:00 Test Item Value Reference Range Interpretation Comments Monocytes (test code = Monocytes) 9.5 2.0-12.0 [place] [address]-07-19 09:29:00 Test Item Value Reference Range Interpretation Comments Basophils (test code = 0.2 See_Comment [Aut omated message] The Basophils) system which ge nerated this result tra nsmitted reference range : <=1.0. The reference r samantha was not used to int erpret this result as normal/abnormal . [place] 441032-07-19 09:29:00 Test Item Value Reference Range Interpretation Comments Neutrophils # (test code = Neutrophils 3.5 1.5-8.1 #) [place] 441032-07-19 09:29:00 Test Item Value Reference Range Interpretation Comments Lymphocytes # (test code = Lymphocytes 0.7 1.0-5.5 #) [place] [address]-07-19 09:29:00 Test Item Value Reference Range Interpretation Comments Monocytes # (test code 0.4 See_Comment [Aut omated message] The = Monocytes #) system which generated this result tra nsmitted reference range : <=0.8. The reference r samantha was not used to int erpret this result as normal/abnormal . [place] [address]-07-19 09:29:00 Test Item Value Reference Range Interpretation Comments Macrocyte (test code = 1+ *ABN*(12/16/21 Macrocyte) 4:29 AM) [facility]zvpOMQYUPVZQS6617-04-44 09:29:00 Test Item Value Reference Range Interpretation Comments C-REACTIVE PROTEIN (test code = 19.0 C-REACTIVE PROTEIN) [place] 852792-07-19 09:29:00 Test Item Value Reference Range Interpretation Comments Glucose Lvl (test code = Glucose Lvl) 199 70-99 [place] 852792-07-19 09:29:00 Test Item Value Reference Range Interpretation Comments BUN (test code = BUN) 28 - [place] 852792-07-19 09:29:00 Test Item Value Reference Range Interpretation Comments Creatinine Lvl (test code = Creatinine 4.84 0.50-1.40 Lvl) [place] 852792-07-19 09:29:00 Test Item Value Reference Range Interpretation Comments Sodium Lvl (test code = Sodium Lvl) 134 135-145 [place] 852792-07-19 09:29:00 Test Item Value Reference Range Interpretation Comments Potassium Lvl (test code = Potassium 4.3 3.5-5.1 Lvl) [facility]2022-07-19 09:29:00 Test Item Value Reference Range Interpretation Comments Chloride Lvl (test code = Chloride Lvl) 100 95-109 [place] 852792-07-19 09:29:00 Test Item Value Reference Range Interpretation Comments CO2 (test code = CO2) 28 24-32 [place] 852792-07-19 09:29:00 Test Item Value Reference Range Interpretation Comments Calcium Lvl (test code = Calcium Lvl) 9.4 8.5-10.5 [place] 852792-07-19 09:29:00 Test Item Value Reference Range Interpretation Comments Total Protein (test code = Total 6.6 6.4-8.4 Protein) [place] 852792-07-19 09:29:00 Test Item Value Reference Range Interpretation Comments Albumin Lvl (test code = Albumin Lvl) 3.0 3.5-5.0 [place] 852792-07-19 09:29:00 Test Item Value Reference Range Interpretation Comments ALT (test code = ALT) 92 See_Comment [Auto mated message] The system which ge nerated this result transmit swathi reference range : <=65. The reference range was not used to interpr et this result as deny l/abnormal. [place] 852792-07-19 09:29:00 Test Item Value Reference Range Interpretation Comments Glucose Lvl (test code = Glucose Lvl) 199 70-99 [place] 852792-07-19 09:29:00 Test Item Value Reference Range Interpretation Comments BUN (test code = BUN) 28 7-22 [place] 852792-07-19 09:29:00 Test Item Value Reference Range Interpretation Comments Creatinine Lvl (test code = Creatinine 4.84 0.50-1.40 Lvl) [place] 852792-07-19 09:29:00 Test Item Value Reference Range Interpretation Comments Sodium Lvl (test code = Sodium Lvl) 134 135-145 [place] 852792-07-19 09:29:00 Test Item Value Reference Range Interpretation Comments AST (test code = AST) 123 See_Comment [Auto mated message] The system which [employer] nerated this result transmit swathi reference range : <=37. The reference range was not used to interpr et this result as deny l/abnormal. [place] 852792-07-19 09:29:00 Test Item Value Reference Range Interpretation Comments Potassium Lvl (test code = Potassium 4.3 3.5-5.1 Lvl) [place] 852792-07-19 09:29:00 Test Item Value Reference Range Interpretation Comments Chloride Lvl (test code = Chloride Lvl) 100 95-109 [facility] [id number] 09:29:00 Test Item Value Reference Range Interpretation Comments CO2 (test code = CO2) 28 24-32 [place] 852792-07-19 09:29:00 Test Item Value Reference Range Interpretation Comments Calcium Lvl (test code = Calcium Lvl) 9.4 8.5-10.5 [place] 852792-07-19 09:29:00 Test Item Value Reference Range Interpretation Comments Total Protein (test code = Total 6.6 6.4-8.4 Protein) [place] 852792-07-19 09:29:00 Test Item Value Reference Range Interpretation Comments Albumin Lvl (test code = Albumin Lvl) 3.0 3.5-5.0 [facility] [employer] [id number] 09:29:00 Test Item Value Reference Range Interpretation Comments ALT (test code = ALT) 92 See_Comment [Auto mated message] The system which ge nerated this result transmit swathi reference range : <=65. The reference range was not used to interpr et this result as deny l/abnormal. [facility] [employer] [id number] 09:29:00 Test Item Value Reference Range Interpretation Comments AST (test code = AST) 123 See_Comment [Auto mated message] The system which ge nerated this result transmit swathi reference range : <=37. The reference range was not used to interpr et this result as deny l/abnormal. [facility] [id number] 09:29:00 Test Item Value Reference Range Interpretation Comments Alk Phos (test code = Alk Phos) 272 39-136 [facility] [employer] [id number] 09:29:00 Test Item Value Reference Range Interpretation Comments Bili Total (test code = Bili Total) 0.9 0.2-1.3 [facility] [employer] [id number] 09:29:00 Test Item Value Reference Range Interpretation Comments Alk Phos (test code = Alk Phos) 272 39-136 [employer] [id number] 09:29:00 Test Item Value Reference Range Interpretation Comments AGAP (test code = AGAP) 10.3 10.0-20.0 [facility] [employer] [id number] 09:29:00 Test Item Value Reference Range Interpretation Comments B/C Ratio (test code = B/C Ratio) 6 1 6-25 [facility] [employer] [id number] 09:29:00 Test Item Value Reference Range Interpretation Comments Globulin (test code = Globulin) 3.6 2.7-4.2 [facility] [employer] [id number] 09:29:00 Test Item Value Reference Range Interpretation Comments A/G Ratio (test code = A/G Ratio) 0.8 1 0.7-1.6 [facility] [employer] [id number] 09:29:00 Test Item Value Reference Range Interpretation Comments eGFR (test code = eGFR) 12 [facility] [employer] [id number] 09:29:00 Test Item Value Reference Range Interpretation Comments Phosphorus (test code = Phosphorus) 4.3 2.5-4.5 [facility]xadurwPXAJSWPMKC4829-51-17 09:29:00 Test Item Value Reference Range Interpretation Comments WBC (test code = WBC) 4.7 3.7-10.4 [facility] CenterIaizrfaMZSNMOYENG0552-98-32 09:29:00 Test Item Value Reference Range Interpretation Comments RBC (test code = RBC) 2.14 4.70-6.10 [facility] CenterHzpqjtyNJJKDVXLCE3484-15-94 09:29:00 Test Item Value Reference Range Interpretation Comments Hgb (test code = Hgb) 7.6 14.0-18.0 [facility] CenterCrxfbfwTYITKTXBPY1040-61-51 09:29:00 Test Item Value Reference Range Interpretation Comments Hct (test code = Hct) 22.8 42.0-54.0 [facility]2022-07-19 09:29:00 Test Item Value Reference Range Interpretation Comments Bili Total (test code = Bili Total) 0.9 0.2-1.3 [facility] CenterUjrhbbtBVNHQUDHUC5852-17-54 09:29:00 Test Item Value Reference Range Interpretation Comments MCV (test code = MCV) 106.6 80.0-94.0 [facility] CenterSeaseqqKQQEJGFDZR8351-39-38 09:29:00 Test Item Value Reference Range Interpretation Comments MCH (test code = MCH) 35.6 pg 27.0-31.0 [facility] CenterDgyheiwYYYEFBUCUH1562-77-49 09:29:00 Test Item Value Reference Range Interpretation Comments MCHC (test code = MCHC) 33.4 32.0-36.0 [facility] CenterChxhdvpLXTSLQEDEA7753-27-22 09:29:00 Test Item Value Reference Range Interpretation Comments RDW (test code = RDW) 24.3 11.5-14.5 [facility] CenterBcyoywcXPNKUUOOHB4968-87-45 09:29:00 Test Item Value Reference Range Interpretation Comments Platelet (test code = Platelet) 148 133-450 [facility] CenterFplabecWMOIXFDQVA3321-66-78 09:29:00 Test Item Value Reference Range Interpretation Comments MPV (test code = MPV) 8.1 7.4-10.4 [facility] CenterNckhicxAZMCEPLTTF0472-67-22 09:29:00 Test Item Value Reference Range Interpretation Comments D-Dimer (test code = D-Dimer) 3.63 [facility] CenterDglmqgkOYQZRERSHW3058-54-99 09:29:00 Test Item Value Reference Range Interpretation Comments Segs (test code = Segs) 74.8 45.0-75.0 [facility] CenterDsajpebNIIIOXIZPH2171-57-47 09:29:00 Test Item Value Reference Range Interpretation Comments Lymphocytes (test code = Lymphocytes) 15.5 20.0-40.0 [facility] CenterXzhwyedWOVDULFWST0092-36-96 09:29:00 Test Item Value Reference Range Interpretation Comments Monocytes (test code = Monocytes) 9.5 2.0-12.0 [facility] [id number] 09:29:00 Test Item Value Reference Range Interpretation Comments AGAP (test code = AGAP) 10.3 10.0-20.0 [facility] CenterZgbmdvtCXMKLBCSAW5061-25-29 09:29:00 Test Item Value Reference Range Interpretation Comments Basophils (test code = 0.2 See_Comment [Aut omated message] The Basophils) system which ge nerated this result tra nsmitted reference range : <=1.0. The reference r samantha was not used to int erpret this result as normal/abnormal . [facility] CenterUsfdqnoMWGAJAQOXM5294-00-44 09:29:00 Test Item Value Reference Range Interpretation Comments Neutrophils # (test code = Neutrophils 3.5 1.5-8.1 #) [facility] CenterVpwowggKXHSJFAYQD8776-87-38 09:29:00 Test Item Value Reference Range Interpretation Comments Lymphocytes # (test code = Lymphocytes 0.7 1.0-5.5 #) [facility] CenterLujmjvtOYZFCJBYNN6590-49-24 09:29:00 Test Item Value Reference Range Interpretation Comments Monocytes # (test code 0.4 See_Comment [Aut omated message] The = Monocytes #) system which generated this result tra nsmitted reference range : <=0.8. The reference r samantha was not used to int erpret this result as normal/abnormal . [facility] CenterJnocueuYOACFHZONC0160-92-50 09:29:00 Test Item Value Reference Range Interpretation Comments Macrocyte (test code = 1+ *ABN*(12/16/21 Macrocyte) 4:29 AM) [facility] HospitalHssjyrlGDEWPLQYVM8027-68-84 09:29:00 Test Item Value Reference Range Interpretation Comments C-REACTIVE PROTEIN (test code = 19.0 C-REACTIVE PROTEIN) [place] 852792-07-19 09:29:00 Test Item Value Reference Range Interpretation Comments B/C Ratio (test code = B/C Ratio) 6 1 6-25 [place] 852792-07-19 09:29:00 Test Item Value Reference Range Interpretation Comments Globulin (test code = Globulin) 3.6 2.7-4.2 [place] 852792-07-19 09:29:00 Test Item Value Reference Range Interpretation Comments A/G Ratio (test code = A/G Ratio) 0.8 1 0.7-1.6 [place] 852792-07-19 09:29:00 Test Item Value Reference Range Interpretation Comments eGFR (test code = eGFR) 12 [place] 852792-07-19 09:29:00 Test Item Value Reference Range Interpretation Comments Phosphorus (test code = Phosphorus) 4.3 2.5-4.5 [place] 441032-07-19 09:29:00 Test Item Value Reference Range Interpretation Comments WBC (test code = WBC) 4.7 3.7-10.4 [place] 441032-07-19 09:29:00 Test Item Value Reference Range Interpretation Comments RBC (test code = RBC) 2.14 4.70-6.10 [place] 441032-07-19 09:29:00 Test Item Value Reference Range Interpretation Comments Hgb (test code = Hgb) 7.6 14.0-18.0 [place] 441032-07-19 09:29:00 Test Item Value Reference Range Interpretation Comments Hct (test code = Hct) 22.8 42.0-54.0 [place] 441032-07-19 09:29:00 Test Item Value Reference Range Interpretation Comments MCV (test code = MCV) 106.6 80.0-94.0 [place] [address]-07-19 09:29:00 Test Item Value Reference Range Interpretation Comments MCH (test code = MCH) 35.6 pg 27.0-31.0 [place] 441032-07-19 09:29:00 Test Item Value Reference Range Interpretation Comments MCHC (test code = MCHC) 33.4 32.0-36.0 [place] 441032-07-19 09:29:00 Test Item Value Reference Range Interpretation Comments RDW (test code = RDW) 24.3 11.5-14.5 [place] 441032-07-19 09:29:00 Test Item Value Reference Range Interpretation Comments Platelet (test code = Platelet) 148 133-450 [place] 441032-07-19 09:29:00 Test Item Value Reference Range Interpretation Comments MPV (test code = MPV) 8.1 7.4-10.4 [place] 441032-07-19 09:29:00 Test Item Value Reference Range Interpretation Comments D-Dimer (test code = D-Dimer) 3.63 [place] [address]-07-19 09:29:00 Test Item Value Reference Range Interpretation Comments Segs (test code = Segs) 74.8 45.0-75.0 [place] 441032-07-19 09:29:00 Test Item Value Reference Range Interpretation Comments Lymphocytes (test code = Lymphocytes) 15.5 20.0-40.0 [place] 441032-07-19 09:29:00 Test Item Value Reference Range Interpretation Comments Monocytes (test code = Monocytes) 9.5 2.0-12.0 [place] 441032-07-19 09:29:00 Test Item Value Reference Range Interpretation Comments Basophils (test code = 0.2 See_Comment [Aut omated message] The Basophils) system which ge nerated this result tra nsmitted reference range : <=1.0. The reference r samantha was not used to int erpret this result as normal/abnormal . [place] 441032-07-19 09:29:00 Test Item Value Reference Range Interpretation Comments Neutrophils # (test code = Neutrophils 3.5 1.5-8.1 #) [place] [address]-07-19 09:29:00 Test Item Value Reference Range Interpretation Comments Lymphocytes # (test code = Lymphocytes 0.7 1.0-5.5 #) [place] [address]-07-19 09:29:00 Test Item Value Reference Range Interpretation Comments Monocytes # (test code 0.4 See_Comment [Aut omated message] The = Monocytes #) system which generated this result tra nsmitted reference range : <=0.8. The reference r samantha was not used to int erpret this result as normal/abnormal . [facility]ImzkyplWREUKKMHGT0423-80-56 09:29:00 Test Item Value Reference Range Interpretation Comments Macrocyte (test code = 1+ *ABN*(12/16/21 Macrocyte) 4:29 AM) [facility] HospitalFjeqvwxTLFMIAYFOS6406-36-26 09:29:00 Test Item Value Reference Range Interpretation Comments C-REACTIVE PROTEIN (test code = 19.0 C-REACTIVE PROTEIN) [place] 852792-07-19 09:29:00 Test Item Value Reference Range Interpretation Comments Glucose Lvl (test code = Glucose Lvl) 199 70-99 [place] 852792-07-19 09:29:00 Test Item Value Reference Range Interpretation Comments BUN (test code = BUN) 28 - [place] 852792-07-19 09:29:00 Test Item Value Reference Range Interpretation Comments Creatinine Lvl (test code = Creatinine 4.84 0.50-1.40 Lvl) [facility]2022-07-19 09:29:00 Test Item Value Reference Range Interpretation Comments Sodium Lvl (test code = Sodium Lvl) 134 135-145 [facility]2022-07-19 09:29:00 Test Item Value Reference Range Interpretation Comments Potassium Lvl (test code = Potassium 4.3 3.5-5.1 Lvl) [place] 852792-07-19 09:29:00 Test Item Value Reference Range Interpretation Comments Chloride Lvl (test code = Chloride Lvl) 100 95-109 [facility]2022-07-19 09:29:00 Test Item Value Reference Range Interpretation Comments CO2 (test code = CO2) 28 24-32 [facility]2022-07-19 09:29:00 Test Item Value Reference Range Interpretation Comments Calcium Lvl (test code = Calcium Lvl) 9.4 8.5-10.5 [place] 852792-07-19 09:29:00 Test Item Value Reference Range Interpretation Comments Total Protein (test code = Total 6.6 6.4-8.4 Protein) [place] 852792-07-19 09:29:00 Test Item Value Reference Range Interpretation Comments Albumin Lvl (test code = Albumin Lvl) 3.0 3.5-5.0 [place] 852792-07-19 09:29:00 Test Item Value Reference Range Interpretation Comments ALT (test code = ALT) 92 See_Comment [Auto mated message] The system which ge nerated this result transmit swathi reference range : <=65. The reference range was not used to interpr et this result as deny l/abnormal. [place] 852792-07-19 09:29:00 Test Item Value Reference Range Interpretation Comments AST (test code = AST) 123 See_Comment [Auto mated message] The system which ge nerated this result transmit swathi reference range : <=37. The reference range was not used to interpr et this result as deny l/abnormal. [place] 852792-07-19 09:29:00 Test Item Value Reference Range Interpretation Comments Alk Phos (test code = Alk Phos) 272 39-136 [place] 852792-07-19 09:29:00 Test Item Value Reference Range Interpretation Comments Bili Total (test code = Bili Total) 0.9 0.2-1.3 [place] 852792-07-19 09:29:00 Test Item Value Reference Range Interpretation Comments AGAP (test code = AGAP) 10.3 10.0-20.0 [place] 852792-07-19 09:29:00 Test Item Value Reference Range Interpretation Comments B/C Ratio (test code = B/C Ratio) 6 1 6-25 [place] [address]-07-19 09:29:00 Test Item Value Reference Range Interpretation Comments Globulin (test code = Globulin) 3.6 2.7-4.2 [place] 852792-07-19 09:29:00 Test Item Value Reference Range Interpretation Comments A/G Ratio (test code = A/G Ratio) 0.8 1 0.7-1.6 [place] [address]-07-19 09:29:00 Test Item Value Reference Range Interpretation Comments eGFR (test code = eGFR) 12 [place] 852792-07-19 09:29:00 Test Item Value Reference Range Interpretation Comments Phosphorus (test code = Phosphorus) 4.3 2.5-4.5 [facility] CenterNlidttbISMVSPJZRU8071-03-57 09:29:00 Test Item Value Reference Range Interpretation Comments WBC (test code = WBC) 4.7 3.7-10.4 [place] 441032-07-19 09:29:00 Test Item Value Reference Range Interpretation Comments RBC (test code = RBC) 2.14 4.70-6.10 [place] 441032-07-19 09:29:00 Test Item Value Reference Range Interpretation Comments Hgb (test code = Hgb) 7.6 14.0-18.0 [facility] CenterUtevfhrHBLQQVOEKS2809-17-42 09:29:00 Test Item Value Reference Range Interpretation Comments Hct (test code = Hct) 22.8 42.0-54.0 [facility] CenterUlvyohvYHACWPHDPF7796-64-15 09:29:00 Test Item Value Reference Range Interpretation Comments MCV (test code = MCV) 106.6 80.0-94.0 [facility] CenterXbdyyrcQBGPTUWFXB9597-86-57 09:29:00 Test Item Value Reference Range Interpretation Comments MCH (test code = MCH) 35.6 pg 27.0-31.0 [facility] CenterFmtafcoXNVYRLPMII7075-27-21 09:29:00 Test Item Value Reference Range Interpretation Comments MCHC (test code = MCHC) 33.4 32.0-36.0 [facility] CenterRbpaofpRMNKFQFYUW3227-53-74 09:29:00 Test Item Value Reference Range Interpretation Comments RDW (test code = RDW) 24.3 11.5-14.5 [facility] CenterBckveibULOVMYLFIG6946-81-24 09:29:00 Test Item Value Reference Range Interpretation Comments Platelet (test code = Platelet) 148 133-450 [facility] CenterFawsyyzLEKFJLIPEZ4531-70-01 09:29:00 Test Item Value Reference Range Interpretation Comments MPV (test code = MPV) 8.1 7.4-10.4 [place] 441032-07-19 09:29:00 Test Item Value Reference Range Interpretation Comments D-Dimer (test code = D-Dimer) 3.63 [facility] CenterRulaxzeVMXQZCFQLV2258-69-08 09:29:00 Test Item Value Reference Range Interpretation Comments Segs (test code = Segs) 74.8 45.0-75.0 [place] 441032-07-19 09:29:00 Test Item Value Reference Range Interpretation Comments Lymphocytes (test code = Lymphocytes) 15.5 20.0-40.0 [facility] CenterOhxbbclXDGKBVGAAB9073-91-76 09:29:00 Test Item Value Reference Range Interpretation Comments Monocytes (test code = Monocytes) 9.5 2.0-12.0 [facility] HospitalEofirtqMFEEIQGNAA7252-35-16 09:29:00 Test Item Value Reference Range Interpretation Comments Basophils (test code = 0.2 See_Comment [Aut omated message] The Basophils) system which ge nerated this result tra nsmitted reference range : <=1.0. The reference r samantha was not used to int erpret this result as normal/abnormal . [facility] CenterEmsddxnFLLEEUZJRN1360-08-85 09:29:00 Test Item Value Reference Range Interpretation Comments Neutrophils # (test code = Neutrophils 3.5 1.5-8.1 #) [facility] CenterMrqutmvVLYDRGWCQI1573-35-16 09:29:00 Test Item Value Reference Range Interpretation Comments Lymphocytes # (test code = Lymphocytes 0.7 1.0-5.5 #) [facility] CenterZmuvdgpDSDBYSJEOM8198-98-36 09:29:00 Test Item Value Reference Range Interpretation Comments Monocytes # (test code 0.4 See_Comment [Aut omated message] The = Monocytes #) system which generated this result tra nsmitted reference range : <=0.8. The reference r samantha was not used to int erpret this result as normal/abnormal . [facility] CenterDrgktamBFALGBLHMY2455-99-44 09:29:00 Test Item Value Reference Range Interpretation Comments Macrocyte (test code = 1+ *ABN*(12/16/21 Macrocyte) 4:29 AM) [facility] HospitalAdeeproGISTATCIRE2751-39-97 09:29:00 Test Item Value Reference Range Interpretation Comments C-REACTIVE PROTEIN (test code = 19.0 C-REACTIVE PROTEIN) [facility] [id number] 09:29:00 Test Item Value Reference Range Interpretation Comments Glucose Lvl (test code = Glucose Lvl) 199 70-99 [facility] [id number] 09:29:00 Test Item Value Reference Range Interpretation Comments BUN (test code = BUN) 28 12-19 [facility] [id number] 09:29:00 Test Item Value Reference Range Interpretation Comments Creatinine Lvl (test code = Creatinine 4.84 0.50-1.40 Lvl) [facility]2022-07-19 09:29:00 Test Item Value Reference Range Interpretation Comments Sodium Lvl (test code = Sodium Lvl) 134 135-145 [place] 852792-07-19 09:29:00 Test Item Value Reference Range Interpretation Comments Potassium Lvl (test code = Potassium 4.3 3.5-5.1 Lvl) [place] 852792-07-19 09:29:00 Test Item Value Reference Range Interpretation Comments Chloride Lvl (test code = Chloride Lvl) 100 95-109 [place] 852792-07-19 09:29:00 Test Item Value Reference Range Interpretation Comments CO2 (test code = CO2) 28 24-32 [place] [address]-07-19 09:29:00 Test Item Value Reference Range Interpretation Comments Calcium Lvl (test code = Calcium Lvl) 9.4 8.5-10.5 [place] 852792-07-19 09:29:00 Test Item Value Reference Range Interpretation Comments Total Protein (test code = Total 6.6 6.4-8.4 Protein) [place] 852792-07-19 09:29:00 Test Item Value Reference Range Interpretation Comments Albumin Lvl (test code = Albumin Lvl) 3.0 3.5-5.0 [place] 852792-07-19 09:29:00 Test Item Value Reference Range Interpretation Comments ALT (test code = ALT) 92 See_Comment [Auto mated message] The system which ge nerated this result transmit swathi reference range : <=65. The reference range was not used to interpr et this result as deny l/abnormal. [place] 852792-07-19 09:29:00 Test Item Value Reference Range Interpretation Comments AST (test code = AST) 123 See_Comment [Auto mated message] The system which ge nerated this result transmit swathi reference range : <=37. The reference range was not used to interpr et this result as deny l/abnormal. [place] 852792-07-19 09:29:00 Test Item Value Reference Range Interpretation Comments Alk Phos (test code = Alk Phos) 272 39-136 [place] 852792-07-19 09:29:00 Test Item Value Reference Range Interpretation Comments Bili Total (test code = Bili Total) 0.9 0.2-1.3 [place] 852792-07-19 09:29:00 Test Item Value Reference Range Interpretation Comments AGAP (test code = AGAP) 10.3 10.0-20.0 [place] 852792-07-19 09:29:00 Test Item Value Reference Range Interpretation Comments B/C Ratio (test code = B/C Ratio) 6 1 6-25 [place] 852792-07-19 09:29:00 Test Item Value Reference Range Interpretation Comments Globulin (test code = Globulin) 3.6 2.7-4.2 [place] 852792-07-19 09:29:00 Test Item Value Reference Range Interpretation Comments A/G Ratio (test code = A/G Ratio) 0.8 1 0.7-1.6 [place] 852792-07-19 09:29:00 Test Item Value Reference Range Interpretation Comments eGFR (test code = eGFR) 12 [facility]2022-07-19 09:29:00 Test Item Value Reference Range Interpretation Comments Phosphorus (test code = Phosphorus) 4.3 2.5-4.5 [place] 441032-07-19 09:29:00 Test Item Value Reference Range Interpretation Comments WBC (test code = WBC) 4.7 3.7-10.4 [place] 441032-07-19 09:29:00 Test Item Value Reference Range Interpretation Comments RBC (test code = RBC) 2.14 4.70-6.10 [place] 441032-07-19 09:29:00 Test Item Value Reference Range Interpretation Comments Hgb (test code = Hgb) 7.6 14.0-18.0 [place] [address]-07-19 09:29:00 Test Item Value Reference Range Interpretation Comments Hct (test code = Hct) 22.8 42.0-54.0 [place] 441032-07-19 09:29:00 Test Item Value Reference Range Interpretation Comments MCV (test code = MCV) 106.6 80.0-94.0 [place] 441032-07-19 09:29:00 Test Item Value Reference Range Interpretation Comments MCH (test code = MCH) 35.6 pg 27.0-31.0 [place] 441032-07-19 09:29:00 Test Item Value Reference Range Interpretation Comments MCHC (test code = MCHC) 33.4 32.0-36.0 [facility] CenterVlruhiqETPZAYKIRU2316-64-79 09:29:00 Test Item Value Reference Range Interpretation Comments RDW (test code = RDW) 24.3 11.5-14.5 [place] 441032-07-19 09:29:00 Test Item Value Reference Range Interpretation Comments Platelet (test code = Platelet) 148 133-450 [facility] CenterKixqyfgJGZKWRIIBI5147-10-06 09:29:00 Test Item Value Reference Range Interpretation Comments MPV (test code = MPV) 8.1 7.4-10.4 [place] 441032-07-19 09:29:00 Test Item Value Reference Range Interpretation Comments D-Dimer (test code = D-Dimer) 3.63 [place] 441032-07-19 09:29:00 Test Item Value Reference Range Interpretation Comments Segs (test code = Segs) 74.8 45.0-75.0 [facility] CenterNbkldvuDNXWZXEZCQ5360-45-70 09:29:00 Test Item Value Reference Range Interpretation Comments Lymphocytes (test code = Lymphocytes) 15.5 20.0-40.0 [facility] CenterAnefeioZGOTHGZQDF0613-29-94 09:29:00 Test Item Value Reference Range Interpretation Comments Monocytes (test code = Monocytes) 9.5 2.0-12.0 [facility] CenterRdmbyemESDBIKNFZY1778-51-32 09:29:00 Test Item Value Reference Range Interpretation Comments Basophils (test code = 0.2 See_Comment [Aut omated message] The Basophils) system which ge nerated this result tra nsmitted reference range : <=1.0. The reference r samantha was not used to int erpret this result as normal/abnormal . [facility] CenterYpbxbeqPUPADAMCBT4440-83-77 09:29:00 Test Item Value Reference Range Interpretation Comments Neutrophils # (test code = Neutrophils 3.5 1.5-8.1 #) [place] 441032-07-19 09:29:00 Test Item Value Reference Range Interpretation Comments Lymphocytes # (test code = Lymphocytes 0.7 1.0-5.5 #) [facility] CenterObbhdkgISELXSTQRU0749-52-21 09:29:00 Test Item Value Reference Range Interpretation Comments Monocytes # (test code 0.4 See_Comment [Aut omated message] The = Monocytes #) system which generated this result tra nsmitted reference range : <=0.8. The reference r samantha was not used to int erpret this result as normal/abnormal . [facility]RsqwivnWEYIUXQCZP6584-60-74 09:29:00 Test Item Value Reference Range Interpretation Comments Macrocyte (test code = 1+ *ABN*(12/16/21 Macrocyte) 4:29 AM) [facility] HospitalVmkjfmiOVAEFWXECJ5261-22-68 09:29:00 Test Item Value Reference Range Interpretation Comments C-REACTIVE PROTEIN (test code = 19.0 C-REACTIVE PROTEIN) [place] 852792-07-19 09:29:00 Test Item Value Reference Range Interpretation Comments Glucose Lvl (test code = Glucose Lvl) 199 70-99 [place] 852792-07-19 09:29:00 Test Item Value Reference Range Interpretation Comments BUN (test code = BUN) 28 - [place] 852792-07-19 09:29:00 Test Item Value Reference Range Interpretation Comments Creatinine Lvl (test code = Creatinine 4.84 0.50-1.40 Lvl) [place] 852792-07-19 09:29:00 Test Item Value Reference Range Interpretation Comments Sodium Lvl (test code = Sodium Lvl) 134 135-145 [place] 852792-07-19 09:29:00 Test Item Value Reference Range Interpretation Comments Potassium Lvl (test code = Potassium 4.3 3.5-5.1 Lvl) [place] 852792-07-19 09:29:00 Test Item Value Reference Range Interpretation Comments Chloride Lvl (test code = Chloride Lvl) 100 95-109 [place] 852792-07-19 09:29:00 Test Item Value Reference Range Interpretation Comments CO2 (test code = CO2) 28 24-32 [place] 852792-07-19 09:29:00 Test Item Value Reference Range Interpretation Comments Calcium Lvl (test code = Calcium Lvl) 9.4 8.5-10.5 [place] 852792-07-19 09:29:00 Test Item Value Reference Range Interpretation Comments Total Protein (test code = Total 6.6 6.4-8.4 Protein) [place] 852792-07-19 09:29:00 Test Item Value Reference Range Interpretation Comments Albumin Lvl (test code = Albumin Lvl) 3.0 3.5-5.0 [facility] [id number] 09:29:00 Test Item Value Reference Range Interpretation Comments ALT (test code = ALT) 92 See_Comment [Auto mated message] The system which ge nerated this result transmit swathi reference range : <=65. The reference range was not used to interpr et this result as deny l/abnormal. [facility] [id number] 09:29:00 Test Item Value Reference Range Interpretation Comments AST (test code = AST) 123 See_Comment [Auto mated message] The system which ge nerated this result transmit swathi reference range : <=37. The reference range was not used to interpr et this result as deny l/abnormal. [facility] [id number] 09:29:00 Test Item Value Reference Range Interpretation Comments Alk Phos (test code = Alk Phos) 272 39-136 [facility] [id number] 09:29:00 Test Item Value Reference Range Interpretation Comments Bili Total (test code = Bili Total) 0.9 0.2-1.3 [facility] [id number] 09:29:00 Test Item Value Reference Range Interpretation Comments AGAP (test code = AGAP) 10.3 10.0-20.0 [facility] [id number] 09:29:00 Test Item Value Reference Range Interpretation Comments B/C Ratio (test code = B/C Ratio) 6 1 6-25 [facility] [id number] 09:29:00 Test Item Value Reference Range Interpretation Comments Globulin (test code = Globulin) 3.6 2.7-4.2 [facility] [id number] 09:29:00 Test Item Value Reference Range Interpretation Comments A/G Ratio (test code = A/G Ratio) 0.8 1 0.7-1.6 [facility] [id number] 09:29:00 Test Item Value Reference Range Interpretation Comments eGFR (test code = eGFR) 12 [facility] [id number] 09:29:00 Test Item Value Reference Range Interpretation Comments Phosphorus (test code = Phosphorus) 4.3 2.5-4.5 [place] 441032-07-19 09:29:00 Test Item Value Reference Range Interpretation Comments WBC (test code = WBC) 4.7 3.7-10.4 [place] 441032-07-19 09:29:00 Test Item Value Reference Range Interpretation Comments RBC (test code = RBC) 2.14 4.70-6.10 [facility]YuyfvziMBVJYPYFUS0415-01-[facility] 09:29:00 Test Item Value Reference Range Interpretation Comments Hgb (test code = Hgb) 7.6 14.0-18.0 [place] 441032-07-19 09:29:00 Test Item Value Reference Range Interpretation Comments Hct (test code = Hct) 22.8 42.0-54.0 [place] 441032-07-19 09:29:00 Test Item Value Reference Range Interpretation Comments MCV (test code = MCV) 106.6 80.0-94.0 [place] 441032-07-19 09:29:00 Test Item Value Reference Range Interpretation Comments MCH (test code = MCH) 35.6 pg 27.0-31.0 [facility] CenterPijqmxrUFSLXLGAWA8364-09-12 09:29:00 Test Item Value Reference Range Interpretation Comments MCHC (test code = MCHC) 33.4 32.0-36.0 [facility] CenterJwkknfvMPDUESKZBR2590-89-99 09:29:00 Test Item Value Reference Range Interpretation Comments RDW (test code = RDW) 24.3 11.5-14.5 [facility] CenterYygcunjNALVJSQTGI6358-97-32 09:29:00 Test Item Value Reference Range Interpretation Comments Platelet (test code = Platelet) 148 133-450 [facility] CenterYpkdyfhUMSKETGLOD2990-11-31 09:29:00 Test Item Value Reference Range Interpretation Comments MPV (test code = MPV) 8.1 7.4-10.4 [place] 441032-07-19 09:29:00 Test Item Value Reference Range Interpretation Comments D-Dimer (test code = D-Dimer) 3.63 [place] 441032-07-19 09:29:00 Test Item Value Reference Range Interpretation Comments Segs (test code = Segs) 74.8 45.0-75.0 [place] 441032-07-19 09:29:00 Test Item Value Reference Range Interpretation Comments Lymphocytes (test code = Lymphocytes) 15.5 20.0-40.0 [facility] CenterGkdtdolNKBIDSURZP5659-05-69 09:29:00 Test Item Value Reference Range Interpretation Comments Monocytes (test code = Monocytes) 9.5 2.0-12.0 [facility] CenterVcvqbscVMVBGFNINC4911-42-74 09:29:00 Test Item Value Reference Range Interpretation Comments Basophils (test code = 0.2 See_Comment [Aut omated message] The Basophils) system which ge nerated this result tra nsmitted reference range : <=1.0. The reference r samantha was not used to int erpret this result as normal/abnormal . [facility] CenterShulqntHCGXQAQNJQ5358-51-44 09:29:00 Test Item Value Reference Range Interpretation Comments Neutrophils # (test code = Neutrophils 3.5 1.5-8.1 #) [facility] CenterIhewfprRLEJWRENRH5251-43-48 09:29:00 Test Item Value Reference Range Interpretation Comments Lymphocytes # (test code = Lymphocytes 0.7 1.0-5.5 #) [facility] CenterMctxfhbPTUHRHMGHT1527-05-41 09:29:00 Test Item Value Reference Range Interpretation Comments Monocytes # (test code 0.4 See_Comment [Aut omated message] The = Monocytes #) system which generated this result tra nsmitted reference range : <=0.8. The reference r samantha was not used to int erpret this result as normal/abnormal . [facility] CenterFmhzhnuXFFJMTNABG0396-54-79 09:29:00 Test Item Value Reference Range Interpretation Comments Macrocyte (test code = 1+ *ABN*(12/16/21 Macrocyte) 4:29 AM) [facility]CokhlbdHSBICBTEQO4388-22-96 09:29:00 Test Item Value Reference Range Interpretation Comments C-REACTIVE PROTEIN (test code = 19.0 C-REACTIVE PROTEIN) [facility] [id number] 09:29:00 Test Item Value Reference Range Interpretation Comments Glucose Lvl (test code = Glucose Lvl) 199 70-99 [facility] [id number] 09:29:00 Test Item Value Reference Range Interpretation Comments BUN (test code = BUN) 28 - [facility] [id number] 09:29:00 Test Item Value Reference Range Interpretation Comments Creatinine Lvl (test code = Creatinine 4.84 0.50-1.40 Lvl) [place] 852792-07-19 09:29:00 Test Item Value Reference Range Interpretation Comments Sodium Lvl (test code = Sodium Lvl) 134 135-145 [place] 852792-07-19 09:29:00 Test Item Value Reference Range Interpretation Comments Potassium Lvl (test code = Potassium 4.3 3.5-5.1 Lvl) [place] 852792-07-19 09:29:00 Test Item Value Reference Range Interpretation Comments Chloride Lvl (test code = Chloride Lvl) 100 95-109 [place] [address]-07-19 09:29:00 Test Item Value Reference Range Interpretation Comments CO2 (test code = CO2) 28 24-32 [place] 852792-07-19 09:29:00 Test Item Value Reference Range Interpretation Comments Calcium Lvl (test code = Calcium Lvl) 9.4 8.5-10.5 [place] 852792-07-19 09:29:00 Test Item Value Reference Range Interpretation Comments Total Protein (test code = Total 6.6 6.4-8.4 Protein) [place] 852792-07-19 09:29:00 Test Item Value Reference Range Interpretation Comments Albumin Lvl (test code = Albumin Lvl) 3.0 3.5-5.0 [place] 852792-07-19 09:29:00 Test Item Value Reference Range Interpretation Comments ALT (test code = ALT) 92 See_Comment [Auto mated message] The system which ge nerated this result transmit swathi reference range : <=65. The reference range was not used to interpr et this result as deny l/abnormal. [place] 852792-07-19 09:29:00 Test Item Value Reference Range Interpretation Comments AST (test code = AST) 123 See_Comment [Auto mated message] The system which ge nerated this result transmit swathi reference range : <=37. The reference range was not used to interpr et this result as deny l/abnormal. [place] [address]-07-19 09:29:00 Test Item Value Reference Range Interpretation Comments Alk Phos (test code = Alk Phos) 272 39-136 [place] 852792-07-19 09:29:00 Test Item Value Reference Range Interpretation Comments Bili Total (test code = Bili Total) 0.9 0.2-1.3 [place] 852792-07-19 09:29:00 Test Item Value Reference Range Interpretation Comments AGAP (test code = AGAP) 10.3 10.0-20.0 [place] 852792-07-19 09:29:00 Test Item Value Reference Range Interpretation Comments B/C Ratio (test code = B/C Ratio) 6 1 6-25 [place] 852792-07-19 09:29:00 Test Item Value Reference Range Interpretation Comments Globulin (test code = Globulin) 3.6 2.7-4.2 [place] 852792-07-19 09:29:00 Test Item Value Reference Range Interpretation Comments A/G Ratio (test code = A/G Ratio) 0.8 1 0.7-1.6 [place] 852792-07-19 09:29:00 Test Item Value Reference Range Interpretation Comments eGFR (test code = eGFR) 12 [facility]2022-07-19 09:29:00 Test Item Value Reference Range Interpretation Comments Phosphorus (test code = Phosphorus) 4.3 2.5-4.5 [place] 441032-07-19 09:29:00 Test Item Value Reference Range Interpretation Comments WBC (test code = WBC) 4.7 3.7-10.4 [place] 441032-07-19 09:29:00 Test Item Value Reference Range Interpretation Comments RBC (test code = RBC) 2.14 4.70-6.10 [place] 441032-07-19 09:29:00 Test Item Value Reference Range Interpretation Comments Hgb (test code = Hgb) 7.6 14.0-18.0 [place] [address]-07-19 09:29:00 Test Item Value Reference Range Interpretation Comments Hct (test code = Hct) 22.8 42.0-54.0 [place] 441032-07-19 09:29:00 Test Item Value Reference Range Interpretation Comments MCV (test code = MCV) 106.6 80.0-94.0 [place] 441032-07-19 09:29:00 Test Item Value Reference Range Interpretation Comments MCH (test code = MCH) 35.6 pg 27.0-31.0 [facility] CenterHvenaksSEXAHFVGUC4622-90-31 09:29:00 Test Item Value Reference Range Interpretation Comments MCHC (test code = MCHC) 33.4 32.0-36.0 [facility] CenterMhduxldNJTEQSXJUT2811-91-31 09:29:00 Test Item Value Reference Range Interpretation Comments RDW (test code = RDW) 24.3 11.5-14.5 [facility] CenterEwqlyxoPLAUBINHXG5632-90-49 09:29:00 Test Item Value Reference Range Interpretation Comments Platelet (test code = Platelet) 148 133-450 [facility] CenterGcegibvLCHNAYLSRH5647-43-50 09:29:00 Test Item Value Reference Range Interpretation Comments MPV (test code = MPV) 8.1 7.4-10.4 [facility] CenterSdjkkcfTRJAMBQFNS8608-29-12 09:29:00 Test Item Value Reference Range Interpretation Comments D-Dimer (test code = D-Dimer) 3.63 [facility] CenterUuwjyotLEMWWAINFR6732-65-37 09:29:00 Test Item Value Reference Range Interpretation Comments Segs (test code = Segs) 74.8 45.0-75.0 [facility] CenterNuzwspjWTHIZMMDEX1447-74-09 09:29:00 Test Item Value Reference Range Interpretation Comments Lymphocytes (test code = Lymphocytes) 15.5 20.0-40.0 [facility] CenterOwyutxzKNKZHGLXAP5698-22-47 09:29:00 Test Item Value Reference Range Interpretation Comments Monocytes (test code = Monocytes) 9.5 2.0-12.0 [facility] CenterBedtjsmJRUUOHCZFL1163-59-14 09:29:00 Test Item Value Reference Range Interpretation Comments Basophils (test code = 0.2 See_Comment [Aut omated message] The Basophils) system which ge nerated this result tra nsmitted reference range : <=1.0. The reference r samantha was not used to int erpret this result as normal/abnormal . [facility] CenterSknckvwHIFVBIDREF1939-61-46 09:29:00 Test Item Value Reference Range Interpretation Comments Neutrophils # (test code = Neutrophils 3.5 1.5-8.1 #) [facility] CenterDvpfczbCCRWFOYEBX0032-96-83 09:29:00 Test Item Value Reference Range Interpretation Comments Lymphocytes # (test code = Lymphocytes 0.7 1.0-5.5 #) [facility] CenterKqmezpiRDJLYCNIBU0810-27-76 09:29:00 Test Item Value Reference Range Interpretation Comments Monocytes # (test code 0.4 See_Comment [Aut omated message] The = Monocytes #) system which generated this result tra nsmitted reference range : <=0.8. The reference r samantha was not used to int erpret this result as normal/abnormal . [facility] CenterKvgajjlFMTNHILQGV1872-52-56 09:29:00 Test Item Value Reference Range Interpretation Comments Macrocyte (test code = 1+ *ABN*(12/16/21 Macrocyte) 4:29 AM) [facility] HospitalLtpndivQLGVTDNPYN3519-70-69 09:29:00 Test Item Value Reference Range Interpretation Comments C-REACTIVE PROTEIN (test code = 19.0 C-REACTIVE PROTEIN) [facility]2022-07-19 09:29:00 Test Item Value Reference Range Interpretation Comments Glucose Lvl (test code = Glucose Lvl) 199 70-99 [facility]2022-07-19 09:29:00 Test Item Value Reference Range Interpretation Comments BUN (test code = BUN) 28 12-19 [facility]2022-07-19 09:29:00 Test Item Value Reference Range Interpretation Comments Creatinine Lvl (test code = Creatinine 4.84 0.50-1.40 Lvl) [facility]2022-07-19 09:29:00 Test Item Value Reference Range Interpretation Comments Sodium Lvl (test code = Sodium Lvl) 134 135-145 [facility]2022-07-19 09:29:00 Test Item Value Reference Range Interpretation Comments Potassium Lvl (test code = Potassium 4.3 3.5-5.1 Lvl) [facility]2022-07-19 09:29:00 Test Item Value Reference Range Interpretation Comments Chloride Lvl (test code = Chloride Lvl) 100 95-109 [place] 852792-07-19 09:29:00 Test Item Value Reference Range Interpretation Comments CO2 (test code = CO2) 28 24-32 [facility]2022-07-19 09:29:00 Test Item Value Reference Range Interpretation Comments Calcium Lvl (test code = Calcium Lvl) 9.4 8.5-10.5 [facility]2022-07-19 09:29:00 Test Item Value Reference Range Interpretation Comments Total Protein (test code = Total 6.6 6.4-8.4 Protein) [facility] [id number] 09:29:00 Test Item Value Reference Range Interpretation Comments Albumin Lvl (test code = Albumin Lvl) 3.0 3.5-5.0 [facility] [id number] 09:29:00 Test Item Value Reference Range Interpretation Comments ALT (test code = ALT) 92 See_Comment [Auto mated message] The system which ge nerated this result transmit swathi reference range : <=65. The reference range was not used to interpr et this result as deny l/abnormal. [facility] [id number] 09:29:00 Test Item Value Reference Range Interpretation Comments AST (test code = AST) 123 See_Comment [Auto mated message] The system which ge nerated this result transmit swathi reference range : <=37. The reference range was not used to interpr et this result as deny l/abnormal. [facility] [employer] [id number] 09:29:00 Test Item Value Reference Range Interpretation Comments Alk Phos (test code = Alk Phos) 272 39-136 [facility] [id number] 09:29:00 Test Item Value Reference Range Interpretation Comments Bili Total (test code = Bili Total) 0.9 0.2-1.3 [facility] [employer] [id number] 09:29:00 Test Item Value Reference Range Interpretation Comments AGAP (test code = AGAP) 10.3 10.0-20.0 [facility] [employer] [id number] 09:29:00 Test Item Value Reference Range Interpretation Comments B/C Ratio (test code = B/C Ratio) 6 1 6-25 [facility] [id number] 09:29:00 Test Item Value Reference Range Interpretation Comments Globulin (test code = Globulin) 3.6 2.7-4.2 [facility] [employer] [id number] 09:29:00 Test Item Value Reference Range Interpretation Comments A/G Ratio (test code = A/G Ratio) 0.8 1 0.7-1.6 [facility] [employer] [id number] 09:29:00 Test Item Value Reference Range Interpretation Comments eGFR (test code = eGFR) 12 [facility]2022-07-19 09:29:00 Test Item Value Reference Range Interpretation Comments Phosphorus (test code = Phosphorus) 4.3 2.5-4.5 [facility] CenterLnpbpdtCUTLTXYVYT7618-75-38 09:29:00 Test Item Value Reference Range Interpretation Comments WBC (test code = WBC) 4.7 3.7-10.4 [facility] CenterRclpmarXOSDTXZRKU2788-46-46 09:29:00 Test Item Value Reference Range Interpretation Comments RBC (test code = RBC) 2.14 4.70-6.10 [facility] CenterQdamophYAKBYHQGFW2832-91-41 09:29:00 Test Item Value Reference Range Interpretation Comments Hgb (test code = Hgb) 7.6 14.0-18.0 [facility] CenterUbljnbtZQPDWYNWBF7478-79-61 09:29:00 Test Item Value Reference Range Interpretation Comments Hct (test code = Hct) 22.8 42.0-54.0 [facility] CenterRacckfyYHVLLJMPRE2121-37-14 09:29:00 Test Item Value Reference Range Interpretation Comments MCV (test code = MCV) 106.6 80.0-94.0 [facility] CenterWtjvwjrIEHFTSRAVL3241-61-30 09:29:00 Test Item Value Reference Range Interpretation Comments MCH (test code = MCH) 35.6 pg 27.0-31.0 [facility] CenterEwmfcurUPBDWUULPR3930-25-55 09:29:00 Test Item Value Reference Range Interpretation Comments MCHC (test code = MCHC) 33.4 32.0-36.0 [facility] CenterOivunshKIIPEWNOJY1985-49-87 09:29:00 Test Item Value Reference Range Interpretation Comments RDW (test code = RDW) 24.3 11.5-14.5 [facility] CenterZjyuschXPZDSMPWIK2176-34-10 09:29:00 Test Item Value Reference Range Interpretation Comments Platelet (test code = Platelet) 148 133-450 [facility] CenterHbreisvQDUBXWXBBK9413-78-39 09:29:00 Test Item Value Reference Range Interpretation Comments MPV (test code = MPV) 8.1 7.4-10.4 [facility] CenterCtmcpmmASJVFOZSGE2076-90-60 09:29:00 Test Item Value Reference Range Interpretation Comments D-Dimer (test code = D-Dimer) 3.63 [facility] CenterAaypvwsSPAZNKJZBR3664-51-00 09:29:00 Test Item Value Reference Range Interpretation Comments Segs (test code = Segs) 74.8 45.0-75.0 [facility] CenterBuyflckIVPMDQRHMT4116-73-41 09:29:00 Test Item Value Reference Range Interpretation Comments Lymphocytes (test code = Lymphocytes) 15.5 20.0-40.0 [facility] CenterPggtghvXLHQWFVAJD5749-99-10 09:29:00 Test Item Value Reference Range Interpretation Comments Monocytes (test code = Monocytes) 9.5 2.0-12.0 [facility] CenterZeeshgoOYMBNFVRKE5060-50-50 09:29:00 Test Item Value Reference Range Interpretation Comments Basophils (test code = 0.2 See_Comment [Aut omated message] The Basophils) system which ge nerated this result tra nsmitted reference range : <=1.0. The reference r samantha was not used to int erpret this result as normal/abnormal . [facility] CenterSydrpftOWSVAJRFUJ6116-40-41 09:29:00 Test Item Value Reference Range Interpretation Comments Neutrophils # (test code = Neutrophils 3.5 1.5-8.1 #) [facility] CenterBcpferiWUSHFFDGPP6410-21-63 09:29:00 Test Item Value Reference Range Interpretation Comments Lymphocytes # (test code = Lymphocytes 0.7 1.0-5.5 #) [facility] CenterZgpixqzKSQNNZLISF8804-02-90 09:29:00 Test Item Value Reference Range Interpretation Comments Monocytes # (test code 0.4 See_Comment [Aut omated message] The = Monocytes #) system which generated this result tra nsmitted reference range : <=0.8. The reference r samantha was not used to int erpret this result as normal/abnormal . [facility] CenterXhqvkztRKNEQWZATI9697-54-34 09:29:00 Test Item Value Reference Range Interpretation Comments Macrocyte (test code = 1+ *ABN*(12/16/21 Macrocyte) 4:29 AM) [facility]xlyqqdTAFIJVATWX8705-27-80 09:29:00 Test Item Value Reference Range Interpretation Comments C-REACTIVE PROTEIN (test code = 19.0 C-REACTIVE PROTEIN) [facility] TempleZfvbmbxMNEJZTIFKB4834-24-90 02:28:00 Test Item Value Reference Range Interpretation Comments Hep Bs Ag (test code Negative *NA*(12/15/21 = Hep Bs Ag) 9:28 PM) [facility] TempleFgchuwrZDDVKEEYTZ5514-28-03 02:28:00 Test Item Value Reference Range Interpretation Comments Hep Bs Ag (test code Negative *NA*(12/15/21 = Hep Bs Ag) 9:28 PM) [facility] ZncixxwLDWQUZOUWV2453-44-77 02:28:00 Test Item Value Reference Range Interpretation Comments Hep Bs Ag (test code Negative *NA*(12/15/21 = Hep Bs Ag) 9:28 PM) [facility] HospitalVnvjdpoISHHVNIPZI1419-93-47 02:28:00 Test Item Value Reference Range Interpretation Comments Hep Bs Ag (test code Negative *NA*(12/15/21 = Hep Bs Ag) 9:28 PM) [facility] JlnuxmhIYGUSUXYKD7472-23-04 02:28:00 Test Item Value Reference Range Interpretation Comments Hep Bs Ag (test code Negative *NA*(12/15/21 = Hep Bs Ag) 9:28 PM) [facility] HospitalHonhnelXBZCKUTBZH6597-64-61 02:28:00 Test Item Value Reference Range Interpretation Comments Hep Bs Ag (test code Negative *NA*(12/15/21 = Hep Bs Ag) 9:28 PM) [facility] HospitalUjyxxleTIPWAZNIMX3128-87-43 02:28:00 Test Item Value Reference Range Interpretation Comments Hep Bs Ag (test code Negative *NA*(12/15/21 = Hep Bs Ag) 9:28 PM) [facility] HospitalNcrjiuqAWRIAQXZBX7174-89-79 02:28:00 Test Item Value Reference Range Interpretation Comments Hep Bs Ag (test code Negative *NA*(12/15/21 = Hep Bs Ag) 9:28 PM) [facility] HospitalannG[facility] Stain Nbrabm3265-70-24 17:16:00 Test Item Value Reference Range Interpretation Comments Gram Stain Report Gram Stain Performed By: (test code = [facility] Stain Report) [facility]ure: Respiratory w/Gram Wvzvy3642-64-77 17:16:00 Test Item Value Reference Range Interpretation Comments Culture: Respiratory Moderate Yeast Normal w/Gram Stain (test code Respiratory Lyndsay = Culture: Respiratory Isolated w/Gram Stain) [facility]annG[facility] Iawvvt9916-57-83 17:16:00 Test Item Value Reference Range Interpretation Comments Gram Stain Report Gram Stain Performed By: (test code = [facility] St[facility] Report) [facility])lture: Respiratory w/Gram [id number] 17:16:00 Test Item Value Reference Range Interpretation Comments Culture: Respiratory Moderate Yeast Normal w/Gram Stain (test code Respiratory Lyndsay = Culture: Respiratory Isolated w/Gram Stain) [facility] Febtmy0965-31-96 17:16:00 Test Item Value Reference Range Interpretation Comments Gram Stain Report Gram Stain Performed By: (test code = [facility] Report) [facility]: Respiratory w/Gram Pikdq3347-18-12 17:16:00 Test Item Value Reference Range Interpretation Comments Culture: Respiratory Moderate Yeast Normal w/Gram Stain (test code Respiratory Lyndsay = Culture: Respiratory Isolated w/Gram Stain) [facility] Caqlfn7460-15-33 17:16:00 Test Item Value Reference Range Interpretation Comments Gram Stain Report Gram Stain Performed By: (test code = [facility] Report) [facility]annCulture: Respiratory w/Gram Rryge6512-53-65 17:16:00 Test Item Value Reference Range Interpretation Comments Culture: Respiratory Moderate Yeast Normal w/Gram Stain (test code Respiratory Lyndsay = Culture: Respiratory Isolated w/Gram Stain) [facility] Ydpein7163-18-07 17:16:00 Test Item Value Reference Range Interpretation Comments Gram Stain Report Gram Stain Performed By: (test code = [facility] St[facility] Report) [facility]lture: Respiratory w/Gram Bmvqk9327-20-27 17:16:00 Test Item Value Reference Range Interpretation Comments Culture: Respiratory Moderate Yeast Normal w/Gram Stain (test code Respiratory Lyndsay = Culture: Respiratory Isolated w/Gram Stain) [facility] Fsdqiz0595-28-06 17:16:00 Test Item Value Reference Range Interpretation Comments Gram Stain Report Gram Stain Performed By: (test code = [facility] Report) [facility]annCulture: Respiratory w/Gram Yzhho6083-39-85 17:16:00 Test Item Value Reference Range Interpretation Comments Culture: Respiratory Moderate Yeast Normal w/Gram Stain (test code Respiratory Lyndsay = Culture: Respiratory Isolated w/Gram Stain) [facility] Fcomza6588-11-84 17:16:00 Test Item Value Reference Range Interpretation Comments Gram Stain Report Gram Stain Performed By: (test code = [facility] Stain Report) [facility]annCulture: Respiratory w/Gram Foadz6076-08-20 17:16:00 Test Item Value Reference Range Interpretation Comments Culture: Respiratory Moderate Yeast Normal w/Gram Stain (test code Respiratory Lyndsay = Culture: Respiratory Isolated w/Gram Stain) [facility] Wydaxj5049-53-90 17:16:00 Test Item Value Reference Range Interpretation Comments Gram Stain Report Gram Stain Performed By: (test code = [facility] Stain Report) [facility]annCulture: Respiratory w/Gram [id number] 17:16:00 Test Item Value Reference Range Interpretation Comments Culture: Respiratory Moderate Yeast Normal w/Gram Stain (test code Respiratory Lyndsay = Culture: Respiratory Isolated w/Gram Stain) [facility] [id number] 09:04:00 Test Item Value Reference Range Interpretation Comments Glucose Lvl (test code = Glucose Lvl) 59 70-99 [facility] [id number] 09:04:00 Test Item Value Reference Range Interpretation Comments BUN (test code = BUN) 41 7-22 [facility]2022-07-18 09:04:00 Test Item Value Reference Range Interpretation Comments Creatinine Lvl (test code = Creatinine 7.00 0.50-1.40 Lvl) [facility]Chip[facility] [employer] [id number] 09:04:00 Test Item Value Reference Range Interpretation Comments Sodium Lvl (test code = Sodium Lvl) 134 135-145 [facility] [employer] [id number] 09:04:00 Test Item Value Reference Range Interpretation Comments Potassium Lvl (test code = Potassium 4.0 3.5-5.1 Lvl) [facility] [employer] [id number] 09:04:00 Test Item Value Reference Range Interpretation Comments Chloride Lvl (test code = Chloride Lvl) 102 95-109 [facility] [employer] [id number] 09:04:00 Test Item Value Reference Range Interpretation Comments CO2 (test code = CO2) 25 24-32 [facility] [id number] 09:04:00 Test Item Value Reference Range Interpretation Comments Calcium Lvl (test code = Calcium Lvl) 9.1 8.5-10.5 [facility] [id number] 09:04:00 Test Item Value Reference Range Interpretation Comments Total Protein (test code = Total 6.2 6.4-8.4 Protein) [facility] [id number] 09:04:00 Test Item Value Reference Range Interpretation Comments Albumin Lvl (test code = Albumin Lvl) 2.8 3.5-5.0 [place] 852792-07-18 09:04:00 Test Item Value Reference Range Interpretation Comments ALT (test code = ALT) 78 See_Comment [Auto mated message] The system which ge nerated this result transmit swathi reference range : <=65. The reference range was not used to interpr et this result as deny l/abnormal. [place] 852792-07-18 09:04:00 Test Item Value Reference Range Interpretation Comments AST (test code = AST) 117 See_Comment [Auto mated message] The system which ge nerated this result transmit swathi reference range : <=37. The reference range was not used to interpr et this result as deny l/abnormal. [place] 852792-07-18 09:04:00 Test Item Value Reference Range Interpretation Comments Alk Phos (test code = Alk Phos) 251 39-136 [place] 852792-07-18 09:04:00 Test Item Value Reference Range Interpretation Comments Bili Total (test code = Bili Total) 0.9 0.2-1.3 [place] [address]-07-18 09:04:00 Test Item Value Reference Range Interpretation Comments AGAP (test code = AGAP) 11.0 10.0-20.0 [place] [address]-07-18 09:04:00 Test Item Value Reference Range Interpretation Comments B/C Ratio (test code = B/C Ratio) 6 1 6-25 [place] [address]-07-18 09:04:00 Test Item Value Reference Range Interpretation Comments Globulin (test code = Globulin) 3.4 2.7-4.2 [place] 852792-07-18 09:04:00 Test Item Value Reference Range Interpretation Comments A/G Ratio (test code = A/G Ratio) 0.8 1 0.7-1.6 [place] [address]-07-18 09:04:00 Test Item Value Reference Range Interpretation Comments eGFR (test code = eGFR) 8 [facility]AywzxtuYCYEOVLLIG8848-85-46 09:04:00 Test Item Value Reference Range Interpretation Comments D-Dimer (test code = D-Dimer) 3.03 [place] 441032-07-18 09:04:00 Test Item Value Reference Range Interpretation Comments WBC (test code = WBC) 3.6 3.7-10.4 [place] 441032-07-18 09:04:00 Test Item Value Reference Range Interpretation Comments RBC (test code = RBC) 2.07 4.70-6.10 [place] 441032-07-18 09:04:00 Test Item Value Reference Range Interpretation Comments Hgb (test code = Hgb) 7.5 14.0-18.0 [place] [address]-07-18 09:04:00 Test Item Value Reference Range Interpretation Comments Hct (test code = Hct) 22.0 42.0-54.0 [place] 441032-07-18 09:04:00 Test Item Value Reference Range Interpretation Comments MCV (test code = MCV) 106.3 80.0-94.0 [place] 441032-07-18 09:04:00 Test Item Value Reference Range Interpretation Comments MCH (test code = MCH) 36.1 pg 27.0-31.0 [place] 441032-07-18 09:04:00 Test Item Value Reference Range Interpretation Comments MCHC (test code = MCHC) 33.9 32.0-36.0 [place] 441032-07-18 09:04:00 Test Item Value Reference Range Interpretation Comments RDW (test code = RDW) 23.9 11.5-14.5 [facility] CenterCqoakyuGBVZUWTHGM5796-44-13 09:04:00 Test Item Value Reference Range Interpretation Comments Platelet (test code = Platelet) 133 133-450 [facility] CenterDygcgnjXFOEFJZNRD9750-55-59 09:04:00 Test Item Value Reference Range Interpretation Comments MPV (test code = MPV) 8.1 7.4-10.4 [place] 441032-07-18 09:04:00 Test Item Value Reference Range Interpretation Comments Segs (test code = Segs) 60.8 45.0-75.0 [place] 441032-07-18 09:04:00 Test Item Value Reference Range Interpretation Comments Lymphocytes (test code = Lymphocytes) 22.3 20.0-40.0 [place] 441032-07-18 09:04:00 Test Item Value Reference Range Interpretation Comments Monocytes (test code = Monocytes) 13.9 2.0-12.0 [facility] CenterQimxoxzXBIDJFZBOI0902-32-07 09:04:00 Test Item Value Reference Range Interpretation Comments Eosinophils (test code = 2.6 See_Comment [A utomated message] The Eosinophils) system which ge nerated this result tra nsmitted reference range : <=4.0. The reference r samantha was not used to int erpret this result as normal/abnormal . [facility] CenterUdkzrikNFPODYNSWK9919-02-65 09:04:00 Test Item Value Reference Range Interpretation Comments Basophils (test code = 0.4 See_Comment [Aut omated message] The Basophils) system which ge nerated this result tra nsmitted reference range : <=1.0. The reference r samantha was not used to int erpret this result as normal/abnormal . [facility] CenterIqplgtnVMRWHEIHTL5591-60-33 09:04:00 Test Item Value Reference Range Interpretation Comments Neutrophils # (test code = Neutrophils 2.2 1.5-8.1 #) [facility] CenterMzgfvpsGQYVWHNETB1716-82-92 09:04:00 Test Item Value Reference Range Interpretation Comments Lymphocytes # (test code = Lymphocytes 0.8 1.0-5.5 #) [facility] CenterKihknavRYVBVQENLG6371-14-61 09:04:00 Test Item Value Reference Range Interpretation Comments Monocytes # (test code 0.5 See_Comment [Aut omated message] The = Monocytes #) system which generated this result tra nsmitted reference range : <=0.8. The reference r samantha was not used to int erpret this result as normal/abnormal . [facility] CenterEfzkyruHKTOTGIAQT9310-48-89 09:04:00 Test Item Value Reference Range Interpretation Comments Eosinophils # (test code 0.1 See_Comment [A utomated message] The = Eosinophils #) system whic h generated this result tra nsmitted reference range : <=0.5. The reference r samantha was not used to int erpret this result as normal/abnormal . [facility] CenterCudbomaJLDKKUMPDE7124-24-12 09:04:00 Test Item Value Reference Range Interpretation Comments Macrocyte (test code = 1+ *ABN*(12/15/21 Macrocyte) 4:04 AM) [facility] HospitalGxigqriBXQTRORBWF0747-79-40 09:04:00 Test Item Value Reference Range Interpretation Comments C-REACTIVE PROTEIN (test code = 25.1 C-REACTIVE PROTEIN) [facility] HospitalMvlgppgTZBLFOJNSF0555-63-86 09:04:00 Test Item Value Reference Range Interpretation Comments Vanco Lvl (test code = Vanco Lvl) 15.2 [place] 852792-07-18 09:04:00 Test Item Value Reference Range Interpretation Comments Glucose Lvl (test code = Glucose Lvl) 59 70-99 [place] 852792-07-18 09:04:00 Test Item Value Reference Range Interpretation Comments BUN (test code = BUN) 41 7-22 [place] 852792-07-18 09:04:00 Test Item Value Reference Range Interpretation Comments Creatinine Lvl (test code = Creatinine 7.00 0.50-1.40 Lvl) [facility]2022-07-18 09:04:00 Test Item Value Reference Range Interpretation Comments Sodium Lvl (test code = Sodium Lvl) 134 135-145 [facility]2022-07-18 09:04:00 Test Item Value Reference Range Interpretation Comments Potassium Lvl (test code = Potassium 4.0 3.5-5.1 Lvl) [place] 852792-07-18 09:04:00 Test Item Value Reference Range Interpretation Comments Chloride Lvl (test code = Chloride Lvl) 102 95-109 [facility]2022-07-18 09:04:00 Test Item Value Reference Range Interpretation Comments CO2 (test code = CO2) 25 24-32 [facility]2022-07-18 09:04:00 Test Item Value Reference Range Interpretation Comments Calcium Lvl (test code = Calcium Lvl) 9.1 8.5-10.5 [place] 852792-07-18 09:04:00 Test Item Value Reference Range Interpretation Comments Total Protein (test code = Total 6.2 6.4-8.4 Protein) [facility]2022-07-18 09:04:00 Test Item Value Reference Range Interpretation Comments Albumin Lvl (test code = Albumin Lvl) 2.8 3.5-5.0 [place] 852792-07-18 09:04:00 Test Item Value Reference Range Interpretation Comments ALT (test code = ALT) 78 See_Comment [Auto mated message] The system which ge nerated this result transmit swathi reference range : <=65. The reference range was not used to interpr et this result as deny l/abnormal. [facility] [employer] [id number] 09:04:00 Test Item Value Reference Range Interpretation Comments AST (test code = AST) 117 See_Comment [Auto mated message] The system which ge nerated this result transmit swathi reference range : <=37. The reference range was not used to interpr et this result as deny l/abnormal. [facility] [employer] [id number] 09:04:00 Test Item Value Reference Range Interpretation Comments Alk Phos (test code = Alk Phos) 251 39-136 [facility] [employer] [id number] 09:04:00 Test Item Value Reference Range Interpretation Comments Bili Total (test code = Bili Total) 0.9 0.2-1.3 [facility] [employer] [id number] 09:04:00 Test Item Value Reference Range Interpretation Comments AGAP (test code = AGAP) 11.0 10.0-20.0 [facility] [employer] [id number] 09:04:00 Test Item Value Reference Range Interpretation Comments B/C Ratio (test code = B/C Ratio) 6 1 6-25 [facility] [employer] [id number] 09:04:00 Test Item Value Reference Range Interpretation Comments Globulin (test code = Globulin) 3.4 2.7-4.2 [facility] [employer] [id number] 09:04:00 Test Item Value Reference Range Interpretation Comments A/G Ratio (test code = A/G Ratio) 0.8 1 0.7-1.6 [facility] [employer] [id number] 09:04:00 Test Item Value Reference Range Interpretation Comments eGFR (test code = eGFR) 8 [facility] HospitalTomblhwUQGOWHPODM4025-71-69 09:04:00 Test Item Value Reference Range Interpretation Comments D-Dimer (test code = D-Dimer) 3.03 [place] [address]-07-18 09:04:00 Test Item Value Reference Range Interpretation Comments WBC (test code = WBC) 3.6 3.7-10.4 [facility] HospitalJnothziODVWNILTNX1381-01-78 09:04:00 Test Item Value Reference Range Interpretation Comments RBC (test code = RBC) 2.07 4.70-6.10 [facility] CenterCeqdkhgCKXNRAJCLU1520-02-19 09:04:00 Test Item Value Reference Range Interpretation Comments Hgb (test code = Hgb) 7.5 14.0-18.0 [place] 441032-07-18 09:04:00 Test Item Value Reference Range Interpretation Comments Hct (test code = Hct) 22.0 42.0-54.0 [place] 441032-07-18 09:04:00 Test Item Value Reference Range Interpretation Comments MCV (test code = MCV) 106.3 80.0-94.0 [place] 441032-07-18 09:04:00 Test Item Value Reference Range Interpretation Comments MCH (test code = MCH) 36.1 pg 27.0-31.0 [place] 441032-07-18 09:04:00 Test Item Value Reference Range Interpretation Comments MCHC (test code = MCHC) 33.9 32.0-36.0 [place] 441032-07-18 09:04:00 Test Item Value Reference Range Interpretation Comments RDW (test code = RDW) 23.9 11.5-14.5 [place] 441032-07-18 09:04:00 Test Item Value Reference Range Interpretation Comments Platelet (test code = Platelet) 133 133-450 [facility] CenterBuuguzdNGWHYHORQR4681-48-67 09:04:00 Test Item Value Reference Range Interpretation Comments MPV (test code = MPV) 8.1 7.4-10.4 [place] 441032-07-18 09:04:00 Test Item Value Reference Range Interpretation Comments Segs (test code = Segs) 60.8 45.0-75.0 [place] 441032-07-18 09:04:00 Test Item Value Reference Range Interpretation Comments Lymphocytes (test code = Lymphocytes) 22.3 20.0-40.0 [place] [address]-07-18 09:04:00 Test Item Value Reference Range Interpretation Comments Monocytes (test code = Monocytes) 13.9 2.0-12.0 [place] 441032-07-18 09:04:00 Test Item Value Reference Range Interpretation Comments Eosinophils (test code = 2.6 See_Comment [A utomated message] The Eosinophils) system which ge nerated this result tra nsmitted reference range : <=4.0. The reference r samantha was not used to int erpret this result as normal/abnormal . [facility] CenterLajbqfeZHYSTASWOH8525-54-93 09:04:00 Test Item Value Reference Range Interpretation Comments Basophils (test code = 0.4 See_Comment [Aut omated message] The Basophils) system which ge nerated this result tra nsmitted reference range : <=1.0. The reference r samantha was not used to int erpret this result as normal/abnormal . [facility] CenterTsqzaeuJZWXPCUPOT8433-96-46 09:04:00 Test Item Value Reference Range Interpretation Comments Neutrophils # (test code = Neutrophils 2.2 1.5-8.1 #) [facility] CenterSnxdhqaSMKDFXTJTK1977-27-80 09:04:00 Test Item Value Reference Range Interpretation Comments Lymphocytes # (test code = Lymphocytes 0.8 1.0-5.5 #) [facility] CenterThvqadeOANAJSORMQ5294-94-56 09:04:00 Test Item Value Reference Range Interpretation Comments Monocytes # (test code 0.5 See_Comment [Aut omated message] The = Monocytes #) system which generated this result tra nsmitted reference range : <=0.8. The reference r samantha was not used to int erpret this result as normal/abnormal . [facility] CenterNzdandgHGELVMZCEB7045-58-67 09:04:00 Test Item Value Reference Range Interpretation Comments Eosinophils # (test code 0.1 See_Comment [A utomated message] The = Eosinophils #) system whic h generated this result tra nsmitted reference range : <=0.5. The reference r samantha was not used to int erpret this result as normal/abnormal . [facility]LxcplsbCJHNZZQIJD1237-94-95 09:04:00 Test Item Value Reference Range Interpretation Comments Macrocyte (test code = 1+ *ABN*(12/15/21 Macrocyte) 4:04 AM) [facility] HospitalLgveuftSDLBLMLMDR6467-88-91 09:04:00 Test Item Value Reference Range Interpretation Comments C-REACTIVE PROTEIN (test code = 25.1 C-REACTIVE PROTEIN) [facility] HospitalHjvnydcDHYWFNUNKM8335-89-38 09:04:00 Test Item Value Reference Range Interpretation Comments Vanco Lvl (test code = Vanco Lvl) 15.2 [place] 852792-07-18 09:04:00 Test Item Value Reference Range Interpretation Comments Glucose Lvl (test code = Glucose Lvl) 59 70-99 [place] 852792-07-18 09:04:00 Test Item Value Reference Range Interpretation Comments BUN (test code = BUN) 41 7-22 [place] 852792-07-18 09:04:00 Test Item Value Reference Range Interpretation Comments Creatinine Lvl (test code = Creatinine 7.00 0.50-1.40 Lvl) [place] 852792-07-18 09:04:00 Test Item Value Reference Range Interpretation Comments Sodium Lvl (test code = Sodium Lvl) 134 135-145 [place] 852792-07-18 09:04:00 Test Item Value Reference Range Interpretation Comments Potassium Lvl (test code = Potassium 4.0 3.5-5.1 Lvl) [place] 852792-07-18 09:04:00 Test Item Value Reference Range Interpretation Comments Chloride Lvl (test code = Chloride Lvl) 102 95-109 [place] 852792-07-18 09:04:00 Test Item Value Reference Range Interpretation Comments CO2 (test code = CO2) 25 24-32 [place] 852792-07-18 09:04:00 Test Item Value Reference Range Interpretation Comments Calcium Lvl (test code = Calcium Lvl) 9.1 8.5-10.5 [place] 852792-07-18 09:04:00 Test Item Value Reference Range Interpretation Comments Total Protein (test code = Total 6.2 6.4-8.4 Protein) [place] 852792-07-18 09:04:00 Test Item Value Reference Range Interpretation Comments Albumin Lvl (test code = Albumin Lvl) 2.8 3.5-5.0 [place] 852792-07-18 09:04:00 Test Item Value Reference Range Interpretation Comments ALT (test code = ALT) 78 See_Comment [Auto mated message] The system which ge nerated this result transmit swathi reference range : <=65. The reference range was not used to interpr et this result as deny l/abnormal. [place] 852792-07-18 09:04:00 Test Item Value Reference Range Interpretation Comments AST (test code = AST) 117 See_Comment [Auto mated message] The system which ge nerated this result transmit swathi reference range : <=37. The reference range was not used to interpr et this result as deny l/abnormal. [facility]2022-07-18 09:04:00 Test Item Value Reference Range Interpretation Comments Alk Phos (test code = Alk Phos) 251 39-136 [place] 852792-07-18 09:04:00 Test Item Value Reference Range Interpretation Comments Bili Total (test code = Bili Total) 0.9 0.2-1.3 [place] 852792-07-18 09:04:00 Test Item Value Reference Range Interpretation Comments AGAP (test code = AGAP) 11.0 10.0-20.0 [place] 852792-07-18 09:04:00 Test Item Value Reference Range Interpretation Comments B/C Ratio (test code = B/C Ratio) 6 1 6-25 [place] 852792-07-18 09:04:00 Test Item Value Reference Range Interpretation Comments Globulin (test code = Globulin) 3.4 2.7-4.2 [place] 852792-07-18 09:04:00 Test Item Value Reference Range Interpretation Comments Glucose Lvl (test code = Glucose Lvl) 59 70-99 [facility]2022-07-18 09:04:00 Test Item Value Reference Range Interpretation Comments BUN (test code = BUN) 41 7-22 [place] 852792-07-18 09:04:00 Test Item Value Reference Range Interpretation Comments Creatinine Lvl (test code = Creatinine 7.00 0.50-1.40 Lvl) [place] 852792-07-18 09:04:00 Test Item Value Reference Range Interpretation Comments Sodium Lvl (test code = Sodium Lvl) 134 135-145 [place] 852792-07-18 09:04:00 Test Item Value Reference Range Interpretation Comments Potassium Lvl (test code = Potassium 4.0 3.5-5.1 Lvl) [place] 852792-07-18 09:04:00 Test Item Value Reference Range Interpretation Comments Chloride Lvl (test code = Chloride Lvl) 102 95-109 [place] 852792-07-18 09:04:00 Test Item Value Reference Range Interpretation Comments CO2 (test code = CO2) 25 24-32 [place] [address]-07-18 09:04:00 Test Item Value Reference Range Interpretation Comments Calcium Lvl (test code = Calcium Lvl) 9.1 8.5-10.5 [place] 852792-07-18 09:04:00 Test Item Value Reference Range Interpretation Comments Total Protein (test code = Total 6.2 6.4-8.4 Protein) [place] 852792-07-18 09:04:00 Test Item Value Reference Range Interpretation Comments A/G Ratio (test code = A/G Ratio) 0.8 1 0.7-1.6 [place] [address]-07-18 09:04:00 Test Item Value Reference Range Interpretation Comments Albumin Lvl (test code = Albumin Lvl) 2.8 3.5-5.0 [place] 852792-07-18 09:04:00 Test Item Value Reference Range Interpretation Comments ALT (test code = ALT) 78 See_Comment [Auto mated message] The system which ge nerated this result transmit swathi reference range : <=65. The reference range was not used to interpr et this result as deny l/abnormal. [place] [address]-07-18 09:04:00 Test Item Value Reference Range Interpretation Comments AST (test code = AST) 117 See_Comment [Auto mated message] The system which ge nerated this result transmit swathi reference range : <=37. The reference range was not used to interpr et this result as deny l/abnormal. [place] 852792-07-18 09:04:00 Test Item Value Reference Range Interpretation Comments Alk Phos (test code = Alk Phos) 251 39-136 [place] [address]-07-18 09:04:00 Test Item Value Reference Range Interpretation Comments Bili Total (test code = Bili Total) 0.9 0.2-1.3 [place] [address]-07-18 09:04:00 Test Item Value Reference Range Interpretation Comments AGAP (test code = AGAP) 11.0 10.0-20.0 [place] [address]-07-18 09:04:00 Test Item Value Reference Range Interpretation Comments B/C Ratio (test code = B/C Ratio) 6 1 6-25 [place] 852792-07-18 09:04:00 Test Item Value Reference Range Interpretation Comments Globulin (test code = Globulin) 3.4 2.7-4.2 [place] 852792-07-18 09:04:00 Test Item Value Reference Range Interpretation Comments A/G Ratio (test code = A/G Ratio) 0.8 1 0.7-1.6 [place] 852792-07-18 09:04:00 Test Item Value Reference Range Interpretation Comments eGFR (test code = eGFR) 8 [facility]2022-07-18 09:04:00 Test Item Value Reference Range Interpretation Comments eGFR (test code = eGFR) 8 [facility] CenterZttvcblROKRVCMIVX0543-31-96 09:04:00 Test Item Value Reference Range Interpretation Comments D-Dimer (test code = D-Dimer) 3.03 [facility] CenterGxripzmPBALNKUYKQ3303-95-73 09:04:00 Test Item Value Reference Range Interpretation Comments WBC (test code = WBC) 3.6 3.7-10.4 [place] 441032-07-18 09:04:00 Test Item Value Reference Range Interpretation Comments RBC (test code = RBC) 2.07 4.70-6.10 [facility] CenterCcxivimBRPGBSKAHL6073-52-13 09:04:00 Test Item Value Reference Range Interpretation Comments Hgb (test code = Hgb) 7.5 14.0-18.0 [facility] CenterHdlgcgiHATDPLMBMC6855-41-74 09:04:00 Test Item Value Reference Range Interpretation Comments Hct (test code = Hct) 22.0 42.0-54.0 [place] 441032-07-18 09:04:00 Test Item Value Reference Range Interpretation Comments MCV (test code = MCV) 106.3 80.0-94.0 [place] 441032-07-18 09:04:00 Test Item Value Reference Range Interpretation Comments MCH (test code = MCH) 36.1 pg 27.0-31.0 [place] 441032-07-18 09:04:00 Test Item Value Reference Range Interpretation Comments MCHC (test code = MCHC) 33.9 32.0-36.0 [place] 441032-07-18 09:04:00 Test Item Value Reference Range Interpretation Comments RDW (test code = RDW) 23.9 11.5-14.5 [place] 441032-07-18 09:04:00 Test Item Value Reference Range Interpretation Comments Platelet (test code = Platelet) 133 133-450 [place] [address]-07-18 09:04:00 Test Item Value Reference Range Interpretation Comments D-Dimer (test code = D-Dimer) 3.03 [place] [address]-07-18 09:04:00 Test Item Value Reference Range Interpretation Comments MPV (test code = MPV) 8.1 7.4-10.4 [place] [address]-07-18 09:04:00 Test Item Value Reference Range Interpretation Comments Segs (test code = Segs) 60.8 45.0-75.0 [place] [address]-07-18 09:04:00 Test Item Value Reference Range Interpretation Comments Lymphocytes (test code = Lymphocytes) 22.3 20.0-40.0 [place] [address]-07-18 09:04:00 Test Item Value Reference Range Interpretation Comments Monocytes (test code = Monocytes) 13.9 2.0-12.0 [place] 441032-07-18 09:04:00 Test Item Value Reference Range Interpretation Comments Eosinophils (test code = 2.6 See_Comment [A utomated message] The Eosinophils) system which ge nerated this result tra nsmitted reference range : <=4.0. The reference r samantha was not used to int erpret this result as normal/abnormal . [place] 441032-07-18 09:04:00 Test Item Value Reference Range Interpretation Comments Basophils (test code = 0.4 See_Comment [Aut omated message] The Basophils) system which ge nerated this result tra nsmitted reference range : <=1.0. The reference r samantha was not used to int erpret this result as normal/abnormal . [place] 441032-07-18 09:04:00 Test Item Value Reference Range Interpretation Comments Neutrophils # (test code = Neutrophils 2.2 1.5-8.1 #) [place] 441032-07-18 09:04:00 Test Item Value Reference Range Interpretation Comments Lymphocytes # (test code = Lymphocytes 0.8 1.0-5.5 #) [facility]IktnaelIMMXUSYLJM1437-82-64 09:04:00 Test Item Value Reference Range Interpretation Comments Monocytes # (test code 0.5 See_Comment [Aut omated message] The = Monocytes #) system which generated this result tra nsmitted reference range : <=0.8. The reference r samantha was not used to int erpret this result as normal/abnormal . [facility]WestOxkwvkvUBCOJDXCLH8668-29-21 09:04:00 Test Item Value Reference Range Interpretation Comments Eosinophils # (test code 0.1 See_Comment [A utomated message] The = Eosinophils #) system whic h generated this result tra nsmitted reference range : <=0.5. The reference r samantha was not used to int erpret this result as normal/abnormal . [facility]KtgsxmoSJKWCCIVHV8268-64-12 09:04:00 Test Item Value Reference Range Interpretation Comments WBC (test code = WBC) 3.6 3.7-10.4 [facility]OpklcqjDEAHAWVESQ3875-27-17 09:04:00 Test Item Value Reference Range Interpretation Comments Macrocyte (test code = 1+ *ABN*(12/15/21 Macrocyte) 4:04 AM) [facility]ExfdwdnQTEWZXLEVU1496-17-53 09:04:00 Test Item Value Reference Range Interpretation Comments C-REACTIVE PROTEIN (test code = 25.1 C-REACTIVE PROTEIN) [facility] HospitalAribssoXJGTYYSHFK9252-06-69 09:04:00 Test Item Value Reference Range Interpretation Comments Vanco Lvl (test code = Vanco Lvl) 15.2 [facility]VkdjyepIHBJWLJXFI7710-28-74 09:04:00 Test Item Value Reference Range Interpretation Comments RBC (test code = RBC) 2.07 4.70-6.10 [facility]WestBqvfqunKINFUCRRCG6103-92-64 09:04:00 Test Item Value Reference Range Interpretation Comments Hgb (test code = Hgb) 7.5 14.0-18.0 [facility]WestNfrkktwIZBFIKRPNO9480-66-32 09:04:00 Test Item Value Reference Range Interpretation Comments Hct (test code = Hct) 22.0 42.0-54.0 [facility] HospitalDjygzzdOHRGWWVSYD3758-88-59 09:04:00 Test Item Value Reference Range Interpretation Comments MCV (test code = MCV) 106.3 80.0-94.0 [facility]KbguofbPZGGMVCSQD4312-37-21 09:04:00 Test Item Value Reference Range Interpretation Comments MCH (test code = MCH) 36.1 pg 27.0-31.0 [facility] CenterMrjlcofTDRLYZJCBA6805-82-84 09:04:00 Test Item Value Reference Range Interpretation Comments MCHC (test code = MCHC) 33.9 32.0-36.0 [facility] CenterUaetffgUJHFTJZJHA3202-80-99 09:04:00 Test Item Value Reference Range Interpretation Comments RDW (test code = RDW) 23.9 11.5-14.5 [facility] CenterVprmynjRQJEXDWBHZ2627-74-39 09:04:00 Test Item Value Reference Range Interpretation Comments Platelet (test code = Platelet) 133 133-450 [facility] CenterMiullyzBGWHDUQBYU7948-45-10 09:04:00 Test Item Value Reference Range Interpretation Comments MPV (test code = MPV) 8.1 7.4-10.4 [facility] CenterEyaxbnjOEQHRMSSNY3808-20-66 09:04:00 Test Item Value Reference Range Interpretation Comments Segs (test code = Segs) 60.8 45.0-75.0 [facility] CenterCxuzkvnSALRUGJTQO3334-02-22 09:04:00 Test Item Value Reference Range Interpretation Comments Lymphocytes (test code = Lymphocytes) 22.3 20.0-40.0 [facility] CenterVelnfhfWTHLFVXSZO6286-85-98 09:04:00 Test Item Value Reference Range Interpretation Comments Monocytes (test code = Monocytes) 13.9 2.0-12.0 [place] 441032-07-18 09:04:00 Test Item Value Reference Range Interpretation Comments Eosinophils (test code = 2.6 See_Comment [A utomated message] The Eosinophils) system which ge nerated this result tra nsmitted reference range : <=4.0. The reference r samantha was not used to int erpret this result as normal/abnormal . [place] 441032-07-18 09:04:00 Test Item Value Reference Range Interpretation Comments Basophils (test code = 0.4 See_Comment [Aut omated message] The Basophils) system which ge nerated this result tra nsmitted reference range : <=1.0. The reference r samantha was not used to int erpret this result as normal/abnormal . [address]07-18 09:04:00 Test Item Value Reference Range Interpretation Comments Neutrophils # (test code = Neutrophils 2.2 1.5-8.1 #) [facility] CenterLerhtwoOIONIVSWWZ0621-97-20 09:04:00 Test Item Value Reference Range Interpretation Comments Lymphocytes # (test code = Lymphocytes 0.8 1.0-5.5 #) [facility] CenterXqbqwobDPGABVYWAK6527-48-51 09:04:00 Test Item Value Reference Range Interpretation Comments Monocytes # (test code 0.5 See_Comment [Aut omated message] The = Monocytes #) system which generated this result tra nsmitted reference range : <=0.8. The reference r samantha was not used to int erpret this result as normal/abnormal . [facility] CenterWglztmjNGKUELCXOK6148-60-60 09:04:00 Test Item Value Reference Range Interpretation Comments Eosinophils # (test code 0.1 See_Comment [A utomated message] The = Eosinophils #) system whic h generated this result tra nsmitted reference range : <=0.5. The reference r samantha was not used to int erpret this result as normal/abnormal . [facility] HospitalMvrvgsnWGEITWJAIV4063-98-20 09:04:00 Test Item Value Reference Range Interpretation Comments Macrocyte (test code = 1+ *ABN*(12/15/21 Macrocyte) 4:04 AM) [facility] HospitalPqkbngnQXKETBVWUI6056-98-23 09:04:00 Test Item Value Reference Range Interpretation Comments C-REACTIVE PROTEIN (test code = 25.1 C-REACTIVE PROTEIN) [facility] HospitalYmlwyxhYQXPJUWVCH5453-11-65 09:04:00 Test Item Value Reference Range Interpretation Comments Vanco Lvl (test code = Vanco Lvl) 15.2 [facility] UYPBU2654-04-01 09:04:00 Test Item Value Reference Range Interpretation Comments Glucose Lvl (test code = Glucose Lvl) 59 70-99 [facility] VTJQH7333-82-06 09:04:00 Test Item Value Reference Range Interpretation Comments BUN (test code = BUN) 41 - [place] 852792-07-18 09:04:00 Test Item Value Reference Range Interpretation Comments Creatinine Lvl (test code = Creatinine 7.00 0.50-1.40 Lvl) [facility]2022-07-18 09:04:00 Test Item Value Reference Range Interpretation Comments Sodium Lvl (test code = Sodium Lvl) 134 135-145 [place] 852792-07-18 09:04:00 Test Item Value Reference Range Interpretation Comments Potassium Lvl (test code = Potassium 4.0 3.5-5.1 Lvl) [place] 852792-07-18 09:04:00 Test Item Value Reference Range Interpretation Comments Chloride Lvl (test code = Chloride Lvl) 102 95-109 [place] [address]-07-18 09:04:00 Test Item Value Reference Range Interpretation Comments CO2 (test code = CO2) 25 24-32 [place] 852792-07-18 09:04:00 Test Item Value Reference Range Interpretation Comments Calcium Lvl (test code = Calcium Lvl) 9.1 8.5-10.5 [place] 852792-07-18 09:04:00 Test Item Value Reference Range Interpretation Comments Total Protein (test code = Total 6.2 6.4-8.4 Protein) [place] 852792-07-18 09:04:00 Test Item Value Reference Range Interpretation Comments Albumin Lvl (test code = Albumin Lvl) 2.8 3.5-5.0 [facility] [id number] 09:04:00 Test Item Value Reference Range Interpretation Comments ALT (test code = ALT) 78 See_Comment [Auto mated message] The system which ge nerated this result transmit swathi reference range : <=65. The reference range was not used to interpr et this result as deny l/abnormal. [facility] [id number] 09:04:00 Test Item Value Reference Range Interpretation Comments AST (test code = AST) 117 See_Comment [Auto mated message] The system which ge nerated this result transmit swathi reference range : <=37. The reference range was not used to interpr et this result as deny l/abnormal. [facility] [id number] 09:04:00 Test Item Value Reference Range Interpretation Comments Alk Phos (test code = Alk Phos) 251 39-136 [place] [address]-07-18 09:04:00 Test Item Value Reference Range Interpretation Comments Bili Total (test code = Bili Total) 0.9 0.2-1.3 [place] 852792-07-18 09:04:00 Test Item Value Reference Range Interpretation Comments AGAP (test code = AGAP) 11.0 10.0-20.0 [place] 852792-07-18 09:04:00 Test Item Value Reference Range Interpretation Comments B/C Ratio (test code = B/C Ratio) 6 1 6-25 [place] 852792-07-18 09:04:00 Test Item Value Reference Range Interpretation Comments Globulin (test code = Globulin) 3.4 2.7-4.2 [place] 852792-07-18 09:04:00 Test Item Value Reference Range Interpretation Comments A/G Ratio (test code = A/G Ratio) 0.8 1 0.7-1.6 [place] 852792-07-18 09:04:00 Test Item Value Reference Range Interpretation Comments eGFR (test code = eGFR) 8 [place] 441032-07-18 09:04:00 Test Item Value Reference Range Interpretation Comments D-Dimer (test code = D-Dimer) 3.03 [place] 441032-07-18 09:04:00 Test Item Value Reference Range Interpretation Comments WBC (test code = WBC) 3.6 3.7-10.4 [place] 441032-07-18 09:04:00 Test Item Value Reference Range Interpretation Comments RBC (test code = RBC) 2.07 4.70-6.10 [place] 441032-07-18 09:04:00 Test Item Value Reference Range Interpretation Comments Hgb (test code = Hgb) 7.5 14.0-18.0 [place] 441032-07-18 09:04:00 Test Item Value Reference Range Interpretation Comments Hct (test code = Hct) 22.0 42.0-54.0 [place] 441032-07-18 09:04:00 Test Item Value Reference Range Interpretation Comments MCV (test code = MCV) 106.3 80.0-94.0 [place] [address]-07-18 09:04:00 Test Item Value Reference Range Interpretation Comments MCH (test code = MCH) 36.1 pg 27.0-31.0 [place] 441032-07-18 09:04:00 Test Item Value Reference Range Interpretation Comments MCHC (test code = MCHC) 33.9 32.0-36.0 [place] 441032-07-18 09:04:00 Test Item Value Reference Range Interpretation Comments RDW (test code = RDW) 23.9 11.5-14.5 [place] 441032-07-18 09:04:00 Test Item Value Reference Range Interpretation Comments Platelet (test code = Platelet) 133 133-450 [place] 441032-07-18 09:04:00 Test Item Value Reference Range Interpretation Comments MPV (test code = MPV) 8.1 7.4-10.4 [place] 441032-07-18 09:04:00 Test Item Value Reference Range Interpretation Comments Segs (test code = Segs) 60.8 45.0-75.0 [place] 441032-07-18 09:04:00 Test Item Value Reference Range Interpretation Comments Lymphocytes (test code = Lymphocytes) 22.3 20.0-40.0 [place] 441032-07-18 09:04:00 Test Item Value Reference Range Interpretation Comments Monocytes (test code = Monocytes) 13.9 2.0-12.0 [facility] CenterPmfhajkKQDNPMIMCH1353-39-59 09:04:00 Test Item Value Reference Range Interpretation Comments Eosinophils (test code = 2.6 See_Comment [A utomated message] The Eosinophils) system which ge nerated this result tra nsmitted reference range : <=4.0. The reference r samantha was not used to int erpret this result as normal/abnormal . [facility] CenterWlddtilQMYILSGMOH1978-42-44 09:04:00 Test Item Value Reference Range Interpretation Comments Basophils (test code = 0.4 See_Comment [Aut omated message] The Basophils) system which ge nerated this result tra nsmitted reference range : <=1.0. The reference r samantha was not used to int erpret this result as normal/abnormal . [place] 441032-07-18 09:04:00 Test Item Value Reference Range Interpretation Comments Neutrophils # (test code = Neutrophils 2.2 1.5-8.1 #) [place] 441032-07-18 09:04:00 Test Item Value Reference Range Interpretation Comments Lymphocytes # (test code = Lymphocytes 0.8 1.0-5.5 #) [facility] HospitalBdynwnoWNYLISMHHS0640-38-03 09:04:00 Test Item Value Reference Range Interpretation Comments Monocytes # (test code 0.5 See_Comment [Aut omated message] The = Monocytes #) system which generated this result tra nsmitted reference range : <=0.8. The reference r samantha was not used to int erpret this result as normal/abnormal . [facility] CenterQvndehhYNPUNMAYGC2320-39-34 09:04:00 Test Item Value Reference Range Interpretation Comments Eosinophils # (test code 0.1 See_Comment [A utomated message] The = Eosinophils #) system whic h generated this result tra nsmitted reference range : <=0.5. The reference r samantha was not used to int erpret this result as normal/abnormal . [facility] CenterFhlxkqaHRIPMJRFNK3518-19-76 09:04:00 Test Item Value Reference Range Interpretation Comments Macrocyte (test code = 1+ *ABN*(12/15/21 Macrocyte) 4:04 AM) [facility] HospitalDspdvkqRBTMUHOQHA1631-41-85 09:04:00 Test Item Value Reference Range Interpretation Comments C-REACTIVE PROTEIN (test code = 25.1 C-REACTIVE PROTEIN) [facility] HospitalGhhnzrcDFBCOHEMUA8927-61-72 09:04:00 Test Item Value Reference Range Interpretation Comments Vanco Lvl (test code = Vanco Lvl) 15.2 [facility] [id number] 09:04:00 Test Item Value Reference Range Interpretation Comments Glucose Lvl (test code = Glucose Lvl) 59 70-99 [facility] [id number] 09:04:00 Test Item Value Reference Range Interpretation Comments BUN (test code = BUN) 41 7-22 [facility] [id number] 09:04:00 Test Item Value Reference Range Interpretation Comments Creatinine Lvl (test code = Creatinine 7.00 0.50-1.40 Lvl) [facility] [id number] 09:04:00 Test Item Value Reference Range Interpretation Comments Sodium Lvl (test code = Sodium Lvl) 134 135-145 [facility] [id number] 09:04:00 Test Item Value Reference Range Interpretation Comments Potassium Lvl (test code = Potassium 4.0 3.5-5.1 Lvl) [place] 852792-07-18 09:04:00 Test Item Value Reference Range Interpretation Comments Chloride Lvl (test code = Chloride Lvl) 102 95-109 [place] 852792-07-18 09:04:00 Test Item Value Reference Range Interpretation Comments CO2 (test code = CO2) 25 24-32 [place] [address]-07-18 09:04:00 Test Item Value Reference Range Interpretation Comments Calcium Lvl (test code = Calcium Lvl) 9.1 8.5-10.5 [place] [address]-07-18 09:04:00 Test Item Value Reference Range Interpretation Comments Total Protein (test code = Total 6.2 6.4-8.4 Protein) [place] [address]-07-18 09:04:00 Test Item Value Reference Range Interpretation Comments Albumin Lvl (test code = Albumin Lvl) 2.8 3.5-5.0 [place] 852792-07-18 09:04:00 Test Item Value Reference Range Interpretation Comments ALT (test code = ALT) 78 See_Comment [Auto mated message] The system which ge nerated this result transmit swathi reference range : <=65. The reference range was not used to interpr et this result as deny l/abnormal. [place] 852792-07-18 09:04:00 Test Item Value Reference Range Interpretation Comments AST (test code = AST) 117 See_Comment [Auto mated message] The system which ge nerated this result transmit swathi reference range : <=37. The reference range was not used to interpr et this result as deny l/abnormal. [facility] [id number] 09:04:00 Test Item Value Reference Range Interpretation Comments Alk Phos (test code = Alk Phos) 251 39-136 [facility] [id number] 09:04:00 Test Item Value Reference Range Interpretation Comments Bili Total (test code = Bili Total) 0.9 0.2-1.3 [place] [address]-07-18 09:04:00 Test Item Value Reference Range Interpretation Comments AGAP (test code = AGAP) 11.0 10.0-20.0 [facility] [id number] 09:04:00 Test Item Value Reference Range Interpretation Comments B/C Ratio (test code = B/C Ratio) 6 1 6-25 [place] 852792-07-18 09:04:00 Test Item Value Reference Range Interpretation Comments Globulin (test code = Globulin) 3.4 2.7-4.2 [place] 852792-07-18 09:04:00 Test Item Value Reference Range Interpretation Comments A/G Ratio (test code = A/G Ratio) 0.8 1 0.7-1.6 [place] 852792-07-18 09:04:00 Test Item Value Reference Range Interpretation Comments eGFR (test code = eGFR) 8 [place] 441032-07-18 09:04:00 Test Item Value Reference Range Interpretation Comments D-Dimer (test code = D-Dimer) 3.03 [place] 441032-07-18 09:04:00 Test Item Value Reference Range Interpretation Comments WBC (test code = WBC) 3.6 3.7-10.4 [place] 441032-07-18 09:04:00 Test Item Value Reference Range Interpretation Comments RBC (test code = RBC) 2.07 4.70-6.10 [place] 441032-07-18 09:04:00 Test Item Value Reference Range Interpretation Comments Hgb (test code = Hgb) 7.5 14.0-18.0 [place] 441032-07-18 09:04:00 Test Item Value Reference Range Interpretation Comments Hct (test code = Hct) 22.0 42.0-54.0 [place] 441032-07-18 09:04:00 Test Item Value Reference Range Interpretation Comments MCV (test code = MCV) 106.3 80.0-94.0 [place] [address]-07-18 09:04:00 Test Item Value Reference Range Interpretation Comments MCH (test code = MCH) 36.1 pg 27.0-31.0 [place] [address]-07-18 09:04:00 Test Item Value Reference Range Interpretation Comments MCHC (test code = MCHC) 33.9 32.0-36.0 [place] [address]-07-18 09:04:00 Test Item Value Reference Range Interpretation Comments RDW (test code = RDW) 23.9 11.5-14.5 [place] 441032-07-18 09:04:00 Test Item Value Reference Range Interpretation Comments Platelet (test code = Platelet) 133 133-450 [place] 441032-07-18 09:04:00 Test Item Value Reference Range Interpretation Comments MPV (test code = MPV) 8.1 7.4-10.4 [place] 441032-07-18 09:04:00 Test Item Value Reference Range Interpretation Comments Segs (test code = Segs) 60.8 45.0-75.0 [place] 441032-07-18 09:04:00 Test Item Value Reference Range Interpretation Comments Lymphocytes (test code = Lymphocytes) 22.3 20.0-40.0 [place] [address]-07-18 09:04:00 Test Item Value Reference Range Interpretation Comments Monocytes (test code = Monocytes) 13.9 2.0-12.0 [place] 441032-07-18 09:04:00 Test Item Value Reference Range Interpretation Comments Eosinophils (test code = 2.6 See_Comment [A utomated message] The Eosinophils) system which ge nerated this result tra nsmitted reference range : <=4.0. The reference r samantha was not used to int erpret this result as normal/abnormal . [place] [address]-07-18 09:04:00 Test Item Value Reference Range Interpretation Comments Basophils (test code = 0.4 See_Comment [Aut omated message] The Basophils) system which ge nerated this result tra nsmitted reference range : <=1.0. The reference r samantha was not used to int erpret this result as normal/abnormal . [facility] CenterUdttjqqDCDCUTBSQF3522-50-58 09:04:00 Test Item Value Reference Range Interpretation Comments Neutrophils # (test code = Neutrophils 2.2 1.5-8.1 #) [place] 441032-07-18 09:04:00 Test Item Value Reference Range Interpretation Comments Lymphocytes # (test code = Lymphocytes 0.8 1.0-5.5 #) [place] 441032-07-18 09:04:00 Test Item Value Reference Range Interpretation Comments Monocytes # (test code 0.5 See_Comment [Aut omated message] The = Monocytes #) system which generated this result tra nsmitted reference range : <=0.8. The reference r samantha was not used to int erpret this result as normal/abnormal . [facility] CenterSndbzxtGMVAWVKBYG9617-25-48 09:04:00 Test Item Value Reference Range Interpretation Comments Eosinophils # (test code 0.1 See_Comment [A utomated message] The = Eosinophils #) system whic h generated this result tra nsmitted reference range : <=0.5. The reference r samantha was not used to int erpret this result as normal/abnormal . [facility]NaevhacURERMWSSIZ7622-97-09 09:04:00 Test Item Value Reference Range Interpretation Comments Macrocyte (test code = 1+ *ABN*(12/15/21 Macrocyte) 4:04 AM) [facility] HospitalMcsuhujPKALXTHOMC8839-79-24 09:04:00 Test Item Value Reference Range Interpretation Comments C-REACTIVE PROTEIN (test code = 25.1 C-REACTIVE PROTEIN) [facility] HospitalHjlhdbcJKGOADQKPY9887-87-70 09:04:00 Test Item Value Reference Range Interpretation Comments Vanco Lvl (test code = Vanco Lvl) 15.2 [facility] [id number] 09:04:00 Test Item Value Reference Range Interpretation Comments Glucose Lvl (test code = Glucose Lvl) 59 70-99 [facility] [id number] 09:04:00 Test Item Value Reference Range Interpretation Comments BUN (test code = BUN) 41 7-22 [facility] [id number] 09:04:00 Test Item Value Reference Range Interpretation Comments Creatinine Lvl (test code = Creatinine 7.00 0.50-1.40 Lvl) [facility] [id number] 09:04:00 Test Item Value Reference Range Interpretation Comments Sodium Lvl (test code = Sodium Lvl) 134 135-145 [facility] [id number] 09:04:00 Test Item Value Reference Range Interpretation Comments Potassium Lvl (test code = Potassium 4.0 3.5-5.1 Lvl) [facility] [id number] 09:04:00 Test Item Value Reference Range Interpretation Comments Chloride Lvl (test code = Chloride Lvl) 102 95-109 [facility] [id number] 09:04:00 Test Item Value Reference Range Interpretation Comments CO2 (test code = CO2) 25 24-32 [facility] [id number] 09:04:00 Test Item Value Reference Range Interpretation Comments Calcium Lvl (test code = Calcium Lvl) 9.1 8.5-10.5 [facility] [id number] 09:04:00 Test Item Value Reference Range Interpretation Comments Total Protein (test code = Total 6.2 6.4-8.4 Protein) [facility] [id number] 09:04:00 Test Item Value Reference Range Interpretation Comments Albumin Lvl (test code = Albumin Lvl) 2.8 3.5-5.0 [facility] [employer] [id number] 09:04:00 Test Item Value Reference Range Interpretation Comments ALT (test code = ALT) 78 See_Comment [Auto mated message] The system which ge nerated this result transmit swathi reference range : <=65. The reference range was not used to interpr et this result as deny l/abnormal. [facility] [employer] [id number] 09:04:00 Test Item Value Reference Range Interpretation Comments AST (test code = AST) 117 See_Comment [Auto mated message] The system which ge nerated this result transmit swathi reference range : <=37. The reference range was not used to interpr et this result as deny l/abnormal. [facility] [employer] [id number] 09:04:00 Test Item Value Reference Range Interpretation Comments Alk Phos (test code = Alk Phos) 251 39-136 [facility] [employer] [id number] 09:04:00 Test Item Value Reference Range Interpretation Comments Bili Total (test code = Bili Total) 0.9 0.2-1.3 [facility] [employer] [id number] 09:04:00 Test Item Value Reference Range Interpretation Comments AGAP (test code = AGAP) 11.0 10.0-20.0 [facility] [employer] [id number] 09:04:00 Test Item Value Reference Range Interpretation Comments B/C Ratio (test code = B/C Ratio) 6 1 6-25 [facility] [employer] [id number] 09:04:00 Test Item Value Reference Range Interpretation Comments Globulin (test code = Globulin) 3.4 2.7-4.2 [facility]2022-07-18 09:04:00 Test Item Value Reference Range Interpretation Comments A/G Ratio (test code = A/G Ratio) 0.8 1 0.7-1.6 [facility]2022-07-18 09:04:00 Test Item Value Reference Range Interpretation Comments eGFR (test code = eGFR) 8 [place] 441032-07-18 09:04:00 Test Item Value Reference Range Interpretation Comments D-Dimer (test code = D-Dimer) 3.03 [place] 441032-07-18 09:04:00 Test Item Value Reference Range Interpretation Comments WBC (test code = WBC) 3.6 3.7-10.4 [place] 441032-07-18 09:04:00 Test Item Value Reference Range Interpretation Comments RBC (test code = RBC) 2.07 4.70-6.10 [facility] CenterRbiplexPLOQLCLLPZ8333-56-54 09:04:00 Test Item Value Reference Range Interpretation Comments Hgb (test code = Hgb) 7.5 14.0-18.0 [place] 441032-07-18 09:04:00 Test Item Value Reference Range Interpretation Comments Hct (test code = Hct) 22.0 42.0-54.0 [place] 441032-07-18 09:04:00 Test Item Value Reference Range Interpretation Comments MCV (test code = MCV) 106.3 80.0-94.0 [place] 441032-07-18 09:04:00 Test Item Value Reference Range Interpretation Comments MCH (test code = MCH) 36.1 pg 27.0-31.0 [facility] CenterYupurwxCRVUZSTPYM3949-86-01 09:04:00 Test Item Value Reference Range Interpretation Comments MCHC (test code = MCHC) 33.9 32.0-36.0 [place] 441032-07-18 09:04:00 Test Item Value Reference Range Interpretation Comments RDW (test code = RDW) 23.9 11.5-14.5 [place] [id number] 09:04:00 Test Item Value Reference Range Interpretation Comments Platelet (test code = Platelet) 133 133-450 [facility]onklpgTLQLNFKHMC5471-77-02 09:04:00 Test Item Value Reference Range Interpretation Comments MPV (test code = MPV) 8.1 7.4-10.4 [place] [address]-07-18 09:04:00 Test Item Value Reference Range Interpretation Comments Segs (test code = Segs) 60.8 45.0-75.0 [place] [address]-07-18 09:04:00 Test Item Value Reference Range Interpretation Comments Lymphocytes (test code = Lymphocytes) 22.3 20.0-40.0 [place] [address]-07-18 09:04:00 Test Item Value Reference Range Interpretation Comments Monocytes (test code = Monocytes) 13.9 2.0-12.0 [place] [address]-07-18 09:04:00 Test Item Value Reference Range Interpretation Comments Eosinophils (test code = 2.6 See_Comment [A utomated message] The Eosinophils) system which ge nerated this result tra nsmitted reference range : <=4.0. The reference r samantha was not used to int erpret this result as normal/abnormal . [place] [address]-07-18 09:04:00 Test Item Value Reference Range Interpretation Comments Basophils (test code = 0.4 See_Comment [Aut omated message] The Basophils) system which ge nerated this result tra nsmitted reference range : <=1.0. The reference r samantha was not used to int erpret this result as normal/abnormal . [place] [address]-07-18 09:04:00 Test Item Value Reference Range Interpretation Comments Neutrophils # (test code = Neutrophils 2.2 1.5-8.1 #) [place] [address]-07-18 09:04:00 Test Item Value Reference Range Interpretation Comments Lymphocytes # (test code = Lymphocytes 0.8 1.0-5.5 #) [place] [address]-07-18 09:04:00 Test Item Value Reference Range Interpretation Comments Monocytes # (test code 0.5 See_Comment [Aut omated message] The = Monocytes #) system which generated this result tra nsmitted reference range : <=0.8. The reference r samantha was not used to int erpret this result as normal/abnormal . [place] [address]-07-18 09:04:00 Test Item Value Reference Range Interpretation Comments Eosinophils # (test code 0.1 See_Comment [A utomated message] The = Eosinophils #) system whic h generated this result tra nsmitted reference range : <=0.5. The reference r samantha was not used to int erpret this result as normal/abnormal . [facility]xxaxHIKBPDSUUH7839-71[facility]33 09:04:00 Test Item Value Reference Range Interpretation Comments Macrocyte (test code = 1+ *ABN*(12/15/21 Macrocyte) 4:04 AM) [facility]7066[facility]79[facility]52 09:04:00 Test Item Value Reference Range Interpretation Comments C-REACTIVE PROTEIN (test code = 25.1 C-REACTIVE PROTEIN) [facility] HospitalQbimsbtFCHLLWQRRH2780-22-29 09:04:00 Test Item Value Reference Range Interpretation Comments Vanco Lvl (test code = Vanco Lvl) 15.2 [facility] [id number] 09:04:00 Test Item Value Reference Range Interpretation Comments Glucose Lvl (test code = Glucose Lvl) 59 70-99 [facility] [id number] 09:04:00 Test Item Value Reference Range Interpretation Comments BUN (test code = BUN) 41 7-22 [facility] [id number] 09:04:00 Test Item Value Reference Range Interpretation Comments Creatinine Lvl (test code = Creatinine 7.00 0.50-1.40 Lvl) [facility] [id number] 09:04:00 Test Item Value Reference Range Interpretation Comments Sodium Lvl (test code = Sodium Lvl) 134 135-145 [facility] [id number] 09:04:00 Test Item Value Reference Range Interpretation Comments Potassium Lvl (test code = Potassium 4.0 3.5-5.1 Lvl) [facility] [id number] 09:04:00 Test Item Value Reference Range Interpretation Comments Chloride Lvl (test code = Chloride Lvl) 102 95-109 [facility] [id number] 09:04:00 Test Item Value Reference Range Interpretation Comments CO2 (test code = CO2) 25 24-32 [facility] [id number] 09:04:00 Test Item Value Reference Range Interpretation Comments Calcium Lvl (test code = Calcium Lvl) 9.1 8.5-10.5 [facility] [id number] 09:04:00 Test Item Value Reference Range Interpretation Comments Total Protein (test code = Total 6.2 6.4-8.4 Protein) [facility] [id number] 09:04:00 Test Item Value Reference Range Interpretation Comments Albumin Lvl (test code = Albumin Lvl) 2.8 3.5-5.0 [facility] [id number] 09:04:00 Test Item Value Reference Range Interpretation Comments ALT (test code = ALT) 78 See_Comment [Auto mated message] The system which ge nerated this result transmit swathi reference range : <=65. The reference range was not used to interpr et this result as deny l/abnormal. [facility] [employer] [id number] 09:04:00 Test Item Value Reference Range Interpretation Comments AST (test code = AST) 117 See_Comment [Auto mated message] The system which ge nerated this result transmit swathi reference range : <=37. The reference range was not used to interpr et this result as deny l/abnormal. [facility] [employer] [id number] 09:04:00 Test Item Value Reference Range Interpretation Comments Alk Phos (test code = Alk Phos) 251 39-136 [facility] [employer] [id number] 09:04:00 Test Item Value Reference Range Interpretation Comments Bili Total (test code = Bili Total) 0.9 0.2-1.3 [facility] [employer] [id number] 09:04:00 Test Item Value Reference Range Interpretation Comments AGAP (test code = AGAP) 11.0 10.0-20.0 [facility] [employer] [id number] 09:04:00 Test Item Value Reference Range Interpretation Comments B/C Ratio (test code = B/C Ratio) 6 1 6-25 [facility] [id number] 09:04:00 Test Item Value Reference Range Interpretation Comments Globulin (test code = Globulin) 3.4 2.7-4.2 [facility] [employer] [id number] 09:04:00 Test Item Value Reference Range Interpretation Comments A/G Ratio (test code = A/G Ratio) 0.8 1 0.7-1.6 [facility] [employer] [id number] 09:04:00 Test Item Value Reference Range Interpretation Comments eGFR (test code = eGFR) 8 [facility] CenterNflvvwdKNJLBWPFNO2811-82-64 09:04:00 Test Item Value Reference Range Interpretation Comments D-Dimer (test code = D-Dimer) 3.03 [facility] CenterTvgelvkRFAYOYRVMR8624-93-47 09:04:00 Test Item Value Reference Range Interpretation Comments WBC (test code = WBC) 3.6 3.7-10.4 [facility] CenterFfpxjxtXGFDDZVPGT9861-41-14 09:04:00 Test Item Value Reference Range Interpretation Comments RBC (test code = RBC) 2.07 4.70-6.10 [facility] CenterOfryjagEFHAFTTEHR6076-01-45 09:04:00 Test Item Value Reference Range Interpretation Comments Hgb (test code = Hgb) 7.5 14.0-18.0 [facility] CenterFqdkcecFOQJRJZOWQ6008-04-98 09:04:00 Test Item Value Reference Range Interpretation Comments Hct (test code = Hct) 22.0 42.0-54.0 [facility] CenterWahtowxJBCWEQBBUK4500-26-17 09:04:00 Test Item Value Reference Range Interpretation Comments MCV (test code = MCV) 106.3 80.0-94.0 [facility] CenterMuwdqizWTNPLQVZYT2380-25-86 09:04:00 Test Item Value Reference Range Interpretation Comments MCH (test code = MCH) 36.1 pg 27.0-31.0 [facility] CenterSwlfjrlVVSCXSTBLO6139-09-41 09:04:00 Test Item Value Reference Range Interpretation Comments MCHC (test code = MCHC) 33.9 32.0-36.0 [facility] CenterAmuukwgAXIJZDKUYV8561-49-41 09:04:00 Test Item Value Reference Range Interpretation Comments RDW (test code = RDW) 23.9 11.5-14.5 [facility] CenterDmcfhgaPNGISLDGGF7797-89-46 09:04:00 Test Item Value Reference Range Interpretation Comments Platelet (test code = Platelet) 133 133-450 [facility] CenterJlzlzctQEGFFPZAFG5595-83-61 09:04:00 Test Item Value Reference Range Interpretation Comments MPV (test code = MPV) 8.1 7.4-10.4 [facility] CenterPifmupdADXSJFFSCX0854-96-91 09:04:00 Test Item Value Reference Range Interpretation Comments Segs (test code = Segs) 60.8 45.0-75.0 [place] [address]-07-18 09:04:00 Test Item Value Reference Range Interpretation Comments Lymphocytes (test code = Lymphocytes) 22.3 20.0-40.0 [place] 441032-07-18 09:04:00 Test Item Value Reference Range Interpretation Comments Monocytes (test code = Monocytes) 13.9 2.0-12.0 [place] 441032-07-18 09:04:00 Test Item Value Reference Range Interpretation Comments Eosinophils (test code = 2.6 See_Comment [A utomated message] The Eosinophils) system which ge nerated this result tra nsmitted reference range : <=4.0. The reference r samantha was not used to int erpret this result as normal/abnormal . [place] [address]-07-18 09:04:00 Test Item Value Reference Range Interpretation Comments Basophils (test code = 0.4 See_Comment [Aut omated message] The Basophils) system which ge nerated this result tra nsmitted reference range : <=1.0. The reference r samantha was not used to int erpret this result as normal/abnormal . [facility] CenterErfqxdtFKGMTCAYDL0480-36-93 09:04:00 Test Item Value Reference Range Interpretation Comments Neutrophils # (test code = Neutrophils 2.2 1.5-8.1 #) [facility] CenterFgljjneVVFNYETBZB5474-76-41 09:04:00 Test Item Value Reference Range Interpretation Comments Lymphocytes # (test code = Lymphocytes 0.8 1.0-5.5 #) [facility] CenterWnngvbcYYVNLKWQZC8974-72-06 09:04:00 Test Item Value Reference Range Interpretation Comments Monocytes # (test code 0.5 See_Comment [Aut omated message] The = Monocytes #) system which generated this result tra nsmitted reference range : <=0.8. The reference r samantha was not used to int erpret this result as normal/abnormal . [place] 441032-07-18 09:04:00 Test Item Value Reference Range Interpretation Comments Eosinophils # (test code 0.1 See_Comment [A utomated message] The = Eosinophils #) system whic h generated this result tra nsmitted reference range : <=0.5. The reference r samantha was not used to int erpret this result as normal/abnormal . [place] 441032-07-18 09:04:00 Test Item Value Reference Range Interpretation Comments Macrocyte (test code = 1+ *ABN*(12/15/21 Macrocyte) 4:04 AM) [facility] HospitalRpxgxusDPUSQOGGMR8506-10-91 09:04:00 Test Item Value Reference Range Interpretation Comments C-REACTIVE PROTEIN (test code = 25.1 C-REACTIVE PROTEIN) [facility] HospitalElaiwmeRMCLYHXIAV0828-27-72 09:04:00 Test Item Value Reference Range Interpretation Comments Vanco Lvl (test code = Vanco Lvl) 15.2 [facility] HospitalannBACTERIAL - [id number] 00:29:00 Test Item Value Reference Range Interpretation Comments MRSA by PCR (test Negative (12/14/21 7:29 code = MRSA by PCR) PM) [facility]annBACTERIAL - [id number] 00:29:00 Test Item Value Reference Range Interpretation Comments MRSA by PCR (test Negative (12/14/21 7:29 code = MRSA by PCR) PM) [facility]BA[facility] - [id number] 00:29:00 Test Item Value Reference Range Interpretation Comments MRSA by PCR (test Negative (12/14/21 7:29 code = MRSA by PCR) PM) [facility]annBACT[facility] - [id number] 00:29:00 Test Item Value Reference Range Interpretation Comments MRSA by PCR (test Negative (12/14/21 7:29 code = MRSA by PCR) PM) [facility]annBA[facility] - [id number] 00:29:00 Test Item Value Reference Range Interpretation Comments MRSA by PCR (test Negative (12/14/21 7:29 code = MRSA by PCR) PM) [facility]BA[facility] - [id number] 00:29:00 Test Item Value Reference Range Interpretation Comments MRSA by PCR (test Negative (12/14/21 7:29 code = MRSA by PCR) PM) [facility]annBA[facility] - [id number] 00:29:00 Test Item Value Reference Range Interpretation Comments MRSA by PCR (test Negative (12/14/21 7:29 code = MRSA by PCR) PM) [facility]annBA[facility] - [id number] 00:29:00 Test Item Value Reference Range Interpretation Comments MRSA by PCR (test Negative (12/14/21 7:29 code = MRSA by PCR) PM) [facility] [id number] 23:56:00 Test Item Value Reference Range Interpretation Comments Source Respiratory Nasophrngl Swb Panel PCR (test code = *NA*(12/14/21 6:56 PM) Source Respiratory Panel PCR) [facility] [id number] 23:56:00 Test Item Value Reference Range Interpretation Comments Influenza A PCR (test Negative (12/14/21 6:56 code = Influenza A PCR) PM) [facility] [id number] 23:56:00 Test Item Value Reference Range Interpretation Comments Influenza B PCR (test Negative (12/14/21 6:56 code = Influenza B PCR) PM) [facility] [id number] 23:56:00 Test Item Value Reference Range Interpretation Comments RSV PCR (test code = Negative (12/14/21 6:56 RSV PCR) PM) [facility] [id number] 23:56:00 Test Item Value Reference Range Interpretation Comments Source Respiratory Nasophrngl Swb Panel PCR (test code = *NA*(12/14/21 6:56 PM) Source Respiratory Panel PCR) [facility] [id number] 23:56:00 Test Item Value Reference Range Interpretation Comments Influenza A PCR (test Negative (12/14/21 6:56 code = Influenza A PCR) PM) [facility] [id number] 23:56:00 Test Item Value Reference Range Interpretation Comments Influenza B PCR (test Negative (12/14/21 6:56 code = Influenza B PCR) PM) [facility] [id number] 23:56:00 Test Item Value Reference Range Interpretation Comments RSV PCR (test code = Negative (12/14/21 6:56 RSV PCR) PM) [facility]2022-07-17 23:56:00 Test Item Value Reference Range Interpretation Comments Source Respiratory Nasophrngl Swb Panel PCR (test code = *NA*(12/14/21 6:56 PM) Source Respiratory Panel PCR) [facility] [id number] 23:56:00 Test Item Value Reference Range Interpretation Comments Influenza A PCR (test Negative (12/14/21 6:56 code = Influenza A PCR) PM) [facility]LE[facility] [id number] 23:56:00 Test Item Value Reference Range Interpretation Comments Influenza B PCR (test Negative (12/14/21 6:56 code = Influenza B PCR) PM) [facility] [id number] 23:56:00 Test Item Value Reference Range Interpretation Comments RSV PCR (test code = Negative (12/14/21 6:56 RSV PCR) PM) [facility] [id number] 23:56:00 Test Item Value Reference Range Interpretation Comments Source Respiratory Nasophrngl Swb Panel PCR (test code = *NA*(12/14/21 6:56 PM) Source Respiratory Panel PCR) [facility] [id number] 23:56:00 Test Item Value Reference Range Interpretation Comments Influenza A PCR (test Negative (12/14/21 6:56 code = Influenza A PCR) PM) [facility] [id number] 23:56:00 Test Item Value Reference Range Interpretation Comments Influenza B PCR (test Negative (12/14/21 6:56 code = Influenza B PCR) PM) [facility] [id number] 23:56:00 Test Item Value Reference Range Interpretation Comments RSV PCR (test code = Negative (12/14/21 6:56 RSV PCR) PM) [facility] [id number] 23:56:00 Test Item Value Reference Range Interpretation Comments Source Respiratory Nasophrngl Swb Panel PCR (test code = *NA*(12/14/21 6:56 PM) Source Respiratory Panel PCR) [facility] [id number] 23:56:00 Test Item Value Reference Range Interpretation Comments Influenza A PCR (test Negative (12/14/21 6:56 code = Influenza A PCR) PM) [facility] [id number] 23:56:00 Test Item Value Reference Range Interpretation Comments Influenza B PCR (test Negative (12/14/21 6:56 code = Influenza B PCR) PM) [facility] [id number] 23:56:00 Test Item Value Reference Range Interpretation Comments RSV PCR (test code = Negative (12/14/21 6:56 RSV PCR) PM) [facility]annMELE[facility] [id number] 23:56:00 Test Item Value Reference Range Interpretation Comments Source Respiratory Nasophrngl Swb Panel PCR (test code = *NA*(12/14/21 6:56 PM) Source Respiratory Panel PCR) [facility] [id number] 23:56:00 Test Item Value Reference Range Interpretation Comments Influenza A PCR (test Negative (12/14/21 6:56 code = Influenza A PCR) PM) [facility] [id number] 23:56:00 Test Item Value Reference Range Interpretation Comments Influenza B PCR (test Negative (12/14/21 6:56 code = Influenza B PCR) PM) [facility] [id number] 23:56:00 Test Item Value Reference Range Interpretation Comments RSV PCR (test code = Negative (12/14/21 6:56 RSV PCR) PM) [facility] [id number] 23:56:00 Test Item Value Reference Range Interpretation Comments Source Respiratory Nasophrngl Swb Panel PCR (test code = *NA*(12/14/21 6:56 PM) Source Respiratory Panel PCR) [facility] [id number] 23:56:00 Test Item Value Reference Range Interpretation Comments Influenza A PCR (test Negative (12/14/21 6:56 code = Influenza A PCR) PM) [facility] [id number] 23:56:00 Test Item Value Reference Range Interpretation Comments Influenza B PCR (test Negative (12/14/21 6:56 code = Influenza B PCR) PM) [facility] [id number] 23:56:00 Test Item Value Reference Range Interpretation Comments RSV PCR (test code = Negative (12/14/21 6:56 RSV PCR) PM) [facility] [id number] 23:56:00 Test Item Value Reference Range Interpretation Comments Source Respiratory Nasophrngl Swb Panel PCR (test code = *NA*(12/14/21 6:56 PM) Source Respiratory Panel PCR) [facility]annMELE[facility] [id number] 23:56:00 Test Item Value Reference Range Interpretation Comments Influenza A PCR (test Negative (12/14/21 6:56 code = Influenza A PCR) PM) [facility] HospitalRecognition PROLECULAR [id number] 23:56:00 Test Item Value Reference Range Interpretation Comments Influenza B PCR (test Negative (12/14/21 6:56 code = Influenza B PCR) PM) [facility] HospitalannMESaltStackULAR [id number] 23:56:00 Test Item Value Reference Range Interpretation Comments RSV PCR (test code = Negative (12/14/21 6:56 RSV PCR) PM) [facility] [employer]2022-07-17 23:55:00 Test Item Value Reference Range Interpretation Comments BNP (test code = BNP) 1994 [facility] [employer] [id number] 23:55:00 Test Item Value Reference Range Interpretation Comments Procalcitonin Lvl (test 0.80 See_Comment [Au tomated message] code = Procalcitonin Lvl) Th e system which generated this result transmitted ref erence range: <=0.10. The reference range was not used to interpr et this result as normal/abnormal . [facility] [employer]2022-07-17 23:55:00 Test Item Value Reference Range Interpretation Comments BNP (test code = BNP) 1994 [facility] [employer] [id number] 23:55:00 Test Item Value Reference Range Interpretation Comments Procalcitonin Lvl (test 0.80 See_Comment [Au tomated message] code = Procalcitonin Lvl) Th e system which generated this result transmitted ref erence range: <=0.10. The reference range was not used to interpr et this result as normal/abnormal . [facility] [employer]2022-07-17 23:55:00 Test Item Value Reference Range Interpretation Comments BNP (test code = BNP) 1994 [facility] [employer] [id number] 23:55:00 Test Item Value Reference Range Interpretation Comments Procalcitonin Lvl (test 0.80 See_Comment [Au tomated message] code = Procalcitonin Lvl) Th e system which generated this result transmitted ref erence range: <=0.10. The reference range was not used to interpr et this result as normal/abnormal . [facility] [employer]2022-07-17 23:55:00 Test Item Value Reference Range Interpretation Comments BNP (test code = BNP) 1994 [facility] [employer] [id number] 23:55:00 Test Item Value Reference Range Interpretation Comments Procalcitonin Lvl (test 0.80 See_Comment [Au tomated message] code = Procalcitonin Lvl) Th e system which generated this result transmitted ref erence range: <=0.10. The reference range was not used to interpr et this result as normal/abnormal . [facility] [employer]2022-07-17 23:55:00 Test Item Value Reference Range Interpretation Comments BNP (test code = BNP) 1994 [facility] [employer] [id number] 23:55:00 Test Item Value Reference Range Interpretation Comments Procalcitonin Lvl (test 0.80 See_Comment [Au tomated message] code = Procalcitonin Lvl) Th e system which generated this result transmitted ref erence range: <=0.10. The reference range was not used to interpr et this result as normal/abnormal . [facility] [employer]2022-07-17 23:55:00 Test Item Value Reference Range Interpretation Comments BNP (test code = BNP) 1994 [facility] [employer] [id number] 23:55:00 Test Item Value Reference Range Interpretation Comments Procalcitonin Lvl (test 0.80 See_Comment [Au tomated message] code = Procalcitonin Lvl) Th e system which generated this result transmitted ref erence range: <=0.10. The reference range was not used to interpr et this result as normal/abnormal . [facility] [employer]2022-07-17 23:55:00 Test Item Value Reference Range Interpretation Comments BNP (test code = BNP) 1994 [facility] [employer] [id number] 23:55:00 Test Item Value Reference Range Interpretation Comments Procalcitonin Lvl (test 0.80 See_Comment [Au tomated message] code = Procalcitonin Lvl) Th e system which generated this result transmitted ref erence range: <=0.10. The reference range was not used to interpr et this result as normal/abnormal . [facility] [employer]2022-07-17 23:55:00 Test Item Value Reference Range Interpretation Comments BNP (test code = BNP) 1994 [facility] [id number] 23:55:00 Test Item Value Reference Range Interpretation Comments Procalcitonin Lvl (test 0.80 See_Comment [Au tomated message] code = Procalcitonin Lvl) Th e system which generated this result transmitted ref erence range: <=0.10. The reference range was not used to interpr et this result as normal/abnormal . [facility] [employer]annCARDIAC [id number] 21:26:00 Test Item Value Reference Range Interpretation Comments HS Troponin I 1 Hr (test code = HS 389 Troponin I 1 Hr) [facility] [employer] LtdannCARDIAC [id number] 21:26:00 Test Item Value Reference Range Interpretation Comments HS Troponin I 0 to 1 Hour Delta (test 49 1 code = HS Troponin I 0 to 1 Hour Delta) [facility] [employer] LtdannCARLumedyne TechnologiesAC [id number] 21:26:00 Test Item Value Reference Range Interpretation Comments HS Troponin I 1 Hr (test code = HS 389 Troponin I 1 Hr) [facility] [employer] [id number] 21:26:00 Test Item Value Reference Range Interpretation Comments HS Troponin I 0 to 1 Hour Delta (test 49 1 code = HS Troponin I 0 to 1 Hour Delta) [facility] [employer]) LtdannCARLumedyne TechnologiesAC [id number] 21:26:00 Test Item Value Reference Range Interpretation Comments HS Troponin I 1 Hr (test code = HS 389 Troponin I 1 Hr) [facility] [employer] LtdannClarus TherapeuticsAC [id number] 21:26:00 Test Item Value Reference Range Interpretation Comments HS Troponin I 0 to 1 Hour Delta (test 49 1 code = HS Troponin I 0 to 1 Hour Delta) [facility] [employer] LtdannCARDIAC [id number] 21:26:00 Test Item Value Reference Range Interpretation Comments HS Troponin I 1 Hr (test code = HS 389 Troponin I 1 Hr) [facility] [employer] LtdannCARDIAC [id number] 21:26:00 Test Item Value Reference Range Interpretation Comments HS Troponin I 0 to 1 Hour Delta (test 49 1 code = HS Troponin I 0 to 1 Hour Delta) [facility] [employer] LtdannClarus TherapeuticsAC [id number] 21:26:00 Test Item Value Reference Range Interpretation Comments HS Troponin I 1 Hr (test code = HS 389 Troponin I 1 Hr) [facility] [employer] LtdannCARDIAC [id number] 21:26:00 Test Item Value Reference Range Interpretation Comments HS Troponin I 0 to 1 Hour Delta (test 49 1 code = HS Troponin I 0 to 1 Hour Delta) [facility] TherapeuticsAC [id number] 21:26:00 Test Item Value Reference Range Interpretation Comments HS Troponin I 1 Hr (test code = HS 389 Troponin I 1 Hr) [facility] [employer]annClarus TherapeuticsAC [id number] 21:26:00 Test Item Value Reference Range Interpretation Comments HS Troponin I 0 to 1 Hour Delta (test 49 1 code = HS Troponin I 0 to 1 Hour Delta) [facility] HospitalannClarus TherapeuticsAC [id number] 21:26:00 Test Item Value Reference Range Interpretation Comments HS Troponin I 1 Hr (test code = HS 389 Troponin I 1 Hr) [facility] HospitalGreenBiz GroupAC [id number] 21:26:00 Test Item Value Reference Range Interpretation Comments HS Troponin I 0 to 1 Hour Delta (test 49 1 code = HS Troponin I 0 to 1 Hour Delta) [facility] [employer] SystemsAC [id number] 21:26:00 Test Item Value Reference Range Interpretation Comments HS Troponin I 1 Hr (test code = HS 389 Troponin I 1 Hr) [facility] [employer] SystemsAC [id number] 21:26:00 Test Item Value Reference Range Interpretation Comments HS Troponin I 0 to 1 Hour Delta (test 49 1 code = HS Troponin I 0 to 1 Hour Delta) [facility] [employer]2022-07-17 20:10:00 Test Item Value Reference Range Interpretation Comments HS Troponin I Baseline (test code = HS 340 Troponin I Baseline) [facility] [employer] [id number] 20:10:00 Test Item Value Reference Range Interpretation Comments Glucose Lvl (test code = Glucose Lvl) 60 70-99 [facility] [employer] [id number] 20:10:00 Test Item Value Reference Range Interpretation Comments BUN (test code = BUN) 35 7-22 [facility] [employer] [id number] 20:10:00 Test Item Value Reference Range Interpretation Comments Creatinine Lvl (test code = Creatinine 6.10 0.50-1.40 Lvl) [facility] [employer] [id number] 20:10:00 Test Item Value Reference Range Interpretation Comments Sodium Lvl (test code = Sodium Lvl) 139 135-145 [place] 852792-07-17 20:10:00 Test Item Value Reference Range Interpretation Comments Potassium Lvl (test code = Potassium 3.1 3.5-5.1 Lvl) [place] 852792-07-17 20:10:00 Test Item Value Reference Range Interpretation Comments Chloride Lvl (test code = Chloride Lvl) 105 95-109 [place] 852792-07-17 20:10:00 Test Item Value Reference Range Interpretation Comments CO2 (test code = CO2) 28 24-32 [place] 852792-07-17 20:10:00 Test Item Value Reference Range Interpretation Comments Calcium Lvl (test code = Calcium Lvl) 8.1 8.5-10.5 [place] 852792-07-17 20:10:00 Test Item Value Reference Range Interpretation Comments Total Protein (test code = Total 5.8 6.4-8.4 Protein) [place] 852792-07-17 20:10:00 Test Item Value Reference Range Interpretation Comments Albumin Lvl (test code = Albumin Lvl) 2.6 3.5-5.0 [place] 852792-07-17 20:10:00 Test Item Value Reference Range Interpretation Comments ALT (test code = ALT) 74 See_Comment [Auto mated message] The system which ge nerated this result transmit swathi reference range : <=65. The reference range was not used to interpr et this result as deny l/abnormal. [place] 852792-07-17 20:10:00 Test Item Value Reference Range Interpretation Comments AST (test code = AST) 117 See_Comment [Auto mated message] The system which ge nerated this result transmit swathi reference range : <=37. The reference range was not used to interpr et this result as deny l/abnormal. [facility] [id number] 20:10:00 Test Item Value Reference Range Interpretation Comments Alk Phos (test code = Alk Phos) 241 39-136 [place] 852792-07-17 20:10:00 Test Item Value Reference Range Interpretation Comments Bili Total (test code = Bili Total) 0.8 0.2-1.3 [place] 852792-07-17 20:10:00 Test Item Value Reference Range Interpretation Comments AGAP (test code = AGAP) 9.1 10.0-20.0 [facility]2022-07-17 20:10:00 Test Item Value Reference Range Interpretation Comments B/C Ratio (test code = B/C Ratio) 6 1 6-25 [place] 852792-07-17 20:10:00 Test Item Value Reference Range Interpretation Comments Globulin (test code = Globulin) 3.2 2.7-4.2 [place] 852792-07-17 20:10:00 Test Item Value Reference Range Interpretation Comments A/G Ratio (test code = A/G Ratio) 0.8 1 0.7-1.6 [facility]2022-07-17 20:10:00 Test Item Value Reference Range Interpretation Comments eGFR (test code = eGFR) 9 [facility]PiqibkqOKROBPMPTW1472-74-40 20:10:00 Test Item Value Reference Range Interpretation Comments WBC (test code = WBC) 4.3 3.7-10.4 [facility] CenterKbejcfxSNBDGPOWIM7763-83-94 20:10:00 Test Item Value Reference Range Interpretation Comments RBC (test code = RBC) 2.17 4.70-6.10 [facility] CenterHigakjqZPENPFAANR7975-78-68 20:10:00 Test Item Value Reference Range Interpretation Comments Hgb (test code = Hgb) 7.7 14.0-18.0 [place] 441032-07-17 20:10:00 Test Item Value Reference Range Interpretation Comments Hct (test code = Hct) 22.9 42.0-54.0 [place] 441032-07-17 20:10:00 Test Item Value Reference Range Interpretation Comments MCV (test code = MCV) 105.9 80.0-94.0 [place] 441032-07-17 20:10:00 Test Item Value Reference Range Interpretation Comments MCH (test code = MCH) 35.4 pg 27.0-31.0 [place] 441032-07-17 20:10:00 Test Item Value Reference Range Interpretation Comments MCHC (test code = MCHC) 33.4 32.0-36.0 [place] 441032-07-17 20:10:00 Test Item Value Reference Range Interpretation Comments RDW (test code = RDW) 23.6 11.5-14.5 [facility] Cent[id number] 20:10:00 Test Item Value Reference Range Interpretation Comments Platelet (test code = Platelet) 146 133-450 [facility] CenterVfkhomjOPTHVQSDRN8748-60-41 20:10:00 Test Item Value Reference Range Interpretation Comments MPV (test code = MPV) 8.0 7.4-10.4 [facility] CenterVtvhzqcDIWKHEJRCU7431-75-81 20:10:00 Test Item Value Reference Range Interpretation Comments Plt Morph (test code = Normal (12/14/21 3:10 Plt Morph) PM) [facility] CenterUbyadcyBVTBHRSDHO4008-97-68 20:10:00 Test Item Value Reference Range Interpretation Comments Segs (test code = Segs) 67.4 45.0-75.0 [facility] CenterLkkshggQHJJOSPZAZ4503-59-90 20:10:00 Test Item Value Reference Range Interpretation Comments Lymphocytes (test code = Lymphocytes) 12.8 20.0-40.0 [facility] CenterFfajwciYGSNXYWATO0247-78-13 20:10:00 Test Item Value Reference Range Interpretation Comments Monocytes (test code = Monocytes) 15.1 2.0-12.0 [facility] CenterXlmuvegWUEBRUFBSW7738-71-91 20:10:00 Test Item Value Reference Range Interpretation Comments Eosinophils (test code = 4.1 See_Comment [A utomated message] The Eosinophils) system which ge nerated this result tra nsmitted reference range : <=4.0. The reference r samantha was not used to int erpret this result as normal/abnormal . [facility] CenterPbqiwqwYUQONQVBGY6557-41-16 20:10:00 Test Item Value Reference Range Interpretation Comments Basophils (test code = 0.6 See_Comment [Aut omated message] The Basophils) system which ge nerated this result tra nsmitted reference range : <=1.0. The reference r samantha was not used to int erpret this result as normal/abnormal . [place] 441032-07-17 20:10:00 Test Item Value Reference Range Interpretation Comments Neutrophils # (test code = Neutrophils 2.9 1.5-8.1 #) [facility] CenterTddedamBYYSKCARRA8370-37-87 20:10:00 Test Item Value Reference Range Interpretation Comments Lymphocytes # (test code = Lymphocytes 0.5 1.0-5.5 #) [facility] CenterXrgprgeISFAOBBFIQ0162-84-32 20:10:00 Test Item Value Reference Range Interpretation Comments Monocytes # (test code 0.6 See_Comment [Aut omated message] The = Monocytes #) system which generated this result tra nsmitted reference range : <=0.8. The reference r samantha was not used to int erpret this result as normal/abnormal . [facility] CenterLfomosrMXCBTVRZMH1948-36-85 20:10:00 Test Item Value Reference Range Interpretation Comments Eosinophils # (test code 0.2 See_Comment [A utomated message] The = Eosinophils #) system whic h generated this result tra nsmitted reference range : <=0.5. The reference r samantha was not used to int erpret this result as normal/abnormal . [facility] CenterJozppoiPDFQBZGVOT7852-33-98 20:10:00 Test Item Value Reference Range Interpretation Comments Anisocyte (test code = 1+ *ABN*(12/14/21 Anisocyte) 3:10 PM) [facility] CenterZqhobmzFZABQWNDOD8803-30-05 20:10:00 Test Item Value Reference Range Interpretation Comments Macrocyte (test code = 1+ *ABN*(12/14/21 Macrocyte) 3:10 PM) [facility] HospitalCdeoftbVXKBGMEDFG4507-61-55 20:10:00 Test Item Value Reference Range Interpretation Comments Coronavirus (COVID-19) Detected MANUEL (test code = 4*ABN*(12/14/21 3:10 Coronavirus (COVID-19) PM) MANUEL) [facility] HospitalCARDIAC [id number] 20:10:00 Test Item Value Reference Range Interpretation Comments HS Troponin I Baseline (test code = HS 340 Troponin I Baseline) [facility] [id number] 20:10:00 Test Item Value Reference Range Interpretation Comments Glucose Lvl (test code = Glucose Lvl) 60 70-99 [facility] [id number] 20:10:00 Test Item Value Reference Range Interpretation Comments BUN (test code = BUN) 35 7-22 [facility]2022-07-17 20:10:00 Test Item Value Reference Range Interpretation Comments Creatinine Lvl (test code = Creatinine 6.10 0.50-1.40 Lvl) [facility] [id number] 20:10:00 Test Item Value Reference Range Interpretation Comments Sodium Lvl (test code = Sodium Lvl) 139 135-145 [place] 852792-07-17 20:10:00 Test Item Value Reference Range Interpretation Comments Potassium Lvl (test code = Potassium 3.1 3.5-5.1 Lvl) [place] 852792-07-17 20:10:00 Test Item Value Reference Range Interpretation Comments Chloride Lvl (test code = Chloride Lvl) 105 95-109 [place] 852792-07-17 20:10:00 Test Item Value Reference Range Interpretation Comments CO2 (test code = CO2) 28 24-32 [place] 852792-07-17 20:10:00 Test Item Value Reference Range Interpretation Comments Calcium Lvl (test code = Calcium Lvl) 8.1 8.5-10.5 [place] 852792-07-17 20:10:00 Test Item Value Reference Range Interpretation Comments Total Protein (test code = Total 5.8 6.4-8.4 Protein) [place] 852792-07-17 20:10:00 Test Item Value Reference Range Interpretation Comments Albumin Lvl (test code = Albumin Lvl) 2.6 3.5-5.0 [facility] HospitalChipidea Microelectrónica [id number] 20:10:00 Test Item Value Reference Range Interpretation Comments ALT (test code = ALT) 74 See_Comment [Auto mated message] The system which ge nerated this result transmit swathi reference range : <=65. The reference range was not used to interpr et this result as deny l/abnormal. [facility] [id number] 20:10:00 Test Item Value Reference Range Interpretation Comments AST (test code = AST) 117 See_Comment [Auto mated message] The system which ge nerated this result transmit swathi reference range : <=37. The reference range was not used to interpr et this result as deny l/abnormal. [facility] [id number] 20:10:00 Test Item Value Reference Range Interpretation Comments Alk Phos (test code = Alk Phos) 241 39-136 [facility] [id number] 20:10:00 Test Item Value Reference Range Interpretation Comments Bili Total (test code = Bili Total) 0.8 0.2-1.3 [place] 852792-07-17 20:10:00 Test Item Value Reference Range Interpretation Comments AGAP (test code = AGAP) 9.1 10.0-20.0 [place] 852792-07-17 20:10:00 Test Item Value Reference Range Interpretation Comments B/C Ratio (test code = B/C Ratio) 6 1 6-25 [place] [address]-07-17 20:10:00 Test Item Value Reference Range Interpretation Comments Globulin (test code = Globulin) 3.2 2.7-4.2 [place] 852792-07-17 20:10:00 Test Item Value Reference Range Interpretation Comments A/G Ratio (test code = A/G Ratio) 0.8 1 0.7-1.6 [place] 852792-07-17 20:10:00 Test Item Value Reference Range Interpretation Comments eGFR (test code = eGFR) 9 [facility] CenterAwmtrpxHBJDJQSUII1673-53-91 20:10:00 Test Item Value Reference Range Interpretation Comments WBC (test code = WBC) 4.3 3.7-10.4 [place] 441032-07-17 20:10:00 Test Item Value Reference Range Interpretation Comments RBC (test code = RBC) 2.17 4.70-6.10 [place] 441032-07-17 20:10:00 Test Item Value Reference Range Interpretation Comments Hgb (test code = Hgb) 7.7 14.0-18.0 [place] 441032-07-17 20:10:00 Test Item Value Reference Range Interpretation Comments Hct (test code = Hct) 22.9 42.0-54.0 [place] 441032-07-17 20:10:00 Test Item Value Reference Range Interpretation Comments MCV (test code = MCV) 105.9 80.0-94.0 [place] [address]-07-17 20:10:00 Test Item Value Reference Range Interpretation Comments MCH (test code = MCH) 35.4 pg 27.0-31.0 [place] [address]-07-17 20:10:00 Test Item Value Reference Range Interpretation Comments MCHC (test code = MCHC) 33.4 32.0-36.0 [place] 441032-07-17 20:10:00 Test Item Value Reference Range Interpretation Comments RDW (test code = RDW) 23.6 11.5-14.5 [place] 441032-07-17 20:10:00 Test Item Value Reference Range Interpretation Comments Platelet (test code = Platelet) 146 133-450 [place] 441032-07-17 20:10:00 Test Item Value Reference Range Interpretation Comments MPV (test code = MPV) 8.0 7.4-10.4 [place] 441032-07-17 20:10:00 Test Item Value Reference Range Interpretation Comments Plt Morph (test code = Normal (12/14/21 3:10 Plt Morph) PM) [facility] CenterJmispyvBVYFIFHAPE2224-24-24 20:10:00 Test Item Value Reference Range Interpretation Comments Segs (test code = Segs) 67.4 45.0-75.0 [place] 441032-07-17 20:10:00 Test Item Value Reference Range Interpretation Comments Lymphocytes (test code = Lymphocytes) 12.8 20.0-40.0 [place] 441032-07-17 20:10:00 Test Item Value Reference Range Interpretation Comments Monocytes (test code = Monocytes) 15.1 2.0-12.0 [facility] CenterZzudjblLTFSZYQTCQ3513-78-08 20:10:00 Test Item Value Reference Range Interpretation Comments Eosinophils (test code = 4.1 See_Comment [A utomated message] The Eosinophils) system which ge nerated this result tra nsmitted reference range : <=4.0. The reference r samantha was not used to int erpret this result as normal/abnormal . [place] 441032-07-17 20:10:00 Test Item Value Reference Range Interpretation Comments Basophils (test code = 0.6 See_Comment [Aut omated message] The Basophils) system which ge nerated this result tra nsmitted reference range : <=1.0. The reference r samantha was not used to int erpret this result as normal/abnormal . [facility] CenterHrdjkmxVPGKEODYFO9506-39-13 20:10:00 Test Item Value Reference Range Interpretation Comments Neutrophils # (test code = Neutrophils 2.9 1.5-8.1 #) [facility] CenterEgycdiiXHKUMTPGYX3644-21-24 20:10:00 Test Item Value Reference Range Interpretation Comments Lymphocytes # (test code = Lymphocytes 0.5 1.0-5.5 #) [facility]YxsyiptSWUCGLTRXD2454-98-10 20:10:00 Test Item Value Reference Range Interpretation Comments Monocytes # (test code 0.6 See_Comment [Aut omated message] The = Monocytes #) system which generated this result tra nsmitted reference range : <=0.8. The reference r samantha was not used to int erpret this result as normal/abnormal . [facility] CenterMxvccvfKWDJPRQBKU9874-99-88 20:10:00 Test Item Value Reference Range Interpretation Comments Eosinophils # (test code 0.2 See_Comment [A utomated message] The = Eosinophils #) system whic h generated this result tra nsmitted reference range : <=0.5. The reference r samantha was not used to int erpret this result as normal/abnormal . [facility] CenterNnvbdrcNUMLONUNEN0707-05-53 20:10:00 Test Item Value Reference Range Interpretation Comments Anisocyte (test code = 1+ *ABN*(12/14/21 Anisocyte) 3:10 PM) [facility] HospitalBnlyiubBGFRMGRLOJ2445-59-57 20:10:00 Test Item Value Reference Range Interpretation Comments Macrocyte (test code = 1+ *ABN*(12/14/21 Macrocyte) 3:10 PM) [facility] HospitalTucivzxWTHHXQVGGY8838-47-54 20:10:00 Test Item Value Reference Range Interpretation Comments Coronavirus (COVID-19) Detected MANUEL (test code = 4*ABN*(12/14/21 3:10 Coronavirus (COVID-19) PM) MANUEL) [facility] HospitalCARDIAC [id number] 20:10:00 Test Item Value Reference Range Interpretation Comments HS Troponin I Baseline (test code = HS 340 Troponin I Baseline) [facility] [id number] 20:10:00 Test Item Value Reference Range Interpretation Comments Glucose Lvl (test code = Glucose Lvl) 60 70-99 [facility]2022-07-17 20:10:00 Test Item Value Reference Range Interpretation Comments BUN (test code = BUN) 35 7-22 [facility]2022-07-17 20:10:00 Test Item Value Reference Range Interpretation Comments Creatinine Lvl (test code = Creatinine 6.10 0.50-1.40 Lvl) [facility]2022-07-17 20:10:00 Test Item Value Reference Range Interpretation Comments Sodium Lvl (test code = Sodium Lvl) 139 135-145 [place] 852792-07-17 20:10:00 Test Item Value Reference Range Interpretation Comments Potassium Lvl (test code = Potassium 3.1 3.5-5.1 Lvl) [place] 852792-07-17 20:10:00 Test Item Value Reference Range Interpretation Comments Chloride Lvl (test code = Chloride Lvl) 105 95-109 [place] 852792-07-17 20:10:00 Test Item Value Reference Range Interpretation Comments CO2 (test code = CO2) 28 24-32 [place] 852792-07-17 20:10:00 Test Item Value Reference Range Interpretation Comments Calcium Lvl (test code = Calcium Lvl) 8.1 8.5-10.5 [place] 852792-07-17 20:10:00 Test Item Value Reference Range Interpretation Comments Total Protein (test code = Total 5.8 6.4-8.4 Protein) [place] 852792-07-17 20:10:00 Test Item Value Reference Range Interpretation Comments Albumin Lvl (test code = Albumin Lvl) 2.6 3.5-5.0 [place] 852792-07-17 20:10:00 Test Item Value Reference Range Interpretation Comments ALT (test code = ALT) 74 See_Comment [Auto mated message] The system which ge nerated this result transmit swathi reference range : <=65. The reference range was not used to interpr et this result as deny l/abnormal. [place] 852792-07-17 20:10:00 Test Item Value Reference Range Interpretation Comments AST (test code = AST) 117 See_Comment [Auto mated message] The system which ge nerated this result transmit swathi reference range : <=37. The reference range was not used to interpr et this result as deny l/abnormal. [place] [address]-07-17 20:10:00 Test Item Value Reference Range Interpretation Comments Alk Phos (test code = Alk Phos) 241 39-136 [place] 852792-07-17 20:10:00 Test Item Value Reference Range Interpretation Comments Bili Total (test code = Bili Total) 0.8 0.2-1.3 [facility]2022-07-17 20:10:00 Test Item Value Reference Range Interpretation Comments AGAP (test code = AGAP) 9.1 10.0-20.0 [facility]2022-07-17 20:10:00 Test Item Value Reference Range Interpretation Comments B/C Ratio (test code = B/C Ratio) 6 1 6-25 [place] 852792-07-17 20:10:00 Test Item Value Reference Range Interpretation Comments Globulin (test code = Globulin) 3.2 2.7-4.2 [place] 852792-07-17 20:10:00 Test Item Value Reference Range Interpretation Comments A/G Ratio (test code = A/G Ratio) 0.8 1 0.7-1.6 [place] 852792-07-17 20:10:00 Test Item Value Reference Range Interpretation Comments eGFR (test code = eGFR) 9 [facility] CenterOisebotXWMUKQQVFZ6993-89-99 20:10:00 Test Item Value Reference Range Interpretation Comments WBC (test code = WBC) 4.3 3.7-10.4 [place] 441032-07-17 20:10:00 Test Item Value Reference Range Interpretation Comments RBC (test code = RBC) 2.17 4.70-6.10 [facility] CenterSeemaplMVOGVJLDDA6691-66-19 20:10:00 Test Item Value Reference Range Interpretation Comments Hgb (test code = Hgb) 7.7 14.0-18.0 [place] 441032-07-17 20:10:00 Test Item Value Reference Range Interpretation Comments Hct (test code = Hct) 22.9 42.0-54.0 [place] 441032-07-17 20:10:00 Test Item Value Reference Range Interpretation Comments MCV (test code = MCV) 105.9 80.0-94.0 [place] 441032-07-17 20:10:00 Test Item Value Reference Range Interpretation Comments MCH (test code = MCH) 35.4 pg 27.0-31.0 [place] 441032-07-17 20:10:00 Test Item Value Reference Range Interpretation Comments MCHC (test code = MCHC) 33.4 32.0-36.0 [place] 441032-07-17 20:10:00 Test Item Value Reference Range Interpretation Comments RDW (test code = RDW) 23.6 11.5-14.5 [place] 441032-07-17 20:10:00 Test Item Value Reference Range Interpretation Comments Platelet (test code = Platelet) 146 133-450 [place] 441032-07-17 20:10:00 Test Item Value Reference Range Interpretation Comments MPV (test code = MPV) 8.0 7.4-10.4 [place] 441032-07-17 20:10:00 Test Item Value Reference Range Interpretation Comments Plt Morph (test code = Normal (12/14/21 3:10 Plt Morph) PM) [place] 441032-07-17 20:10:00 Test Item Value Reference Range Interpretation Comments Segs (test code = Segs) 67.4 45.0-75.0 [place] 441032-07-17 20:10:00 Test Item Value Reference Range Interpretation Comments Lymphocytes (test code = Lymphocytes) 12.8 20.0-40.0 [facility] CenterYnioivuSFACMUBFBG7331-33-43 20:10:00 Test Item Value Reference Range Interpretation Comments Monocytes (test code = Monocytes) 15.1 2.0-12.0 [facility] CenterNyiuzpvFBLVUZAIXK4466-17-02 20:10:00 Test Item Value Reference Range Interpretation Comments Eosinophils (test code = 4.1 See_Comment [A utomated message] The Eosinophils) system which ge nerated this result tra nsmitted reference range : <=4.0. The reference r samantha was not used to int erpret this result as normal/abnormal . [facility] CenterBiopkpvOTGAHNDSSV8839-62-72 20:10:00 Test Item Value Reference Range Interpretation Comments Basophils (test code = 0.6 See_Comment [Aut omated message] The Basophils) system which ge nerated this result tra nsmitted reference range : <=1.0. The reference r samantha was not used to int erpret this result as normal/abnormal . [place] 441032-07-17 20:10:00 Test Item Value Reference Range Interpretation Comments Neutrophils # (test code = Neutrophils 2.9 1.5-8.1 #) [place] 441032-07-17 20:10:00 Test Item Value Reference Range Interpretation Comments Lymphocytes # (test code = Lymphocytes 0.5 1.0-5.5 #) [facility]WestJajtffyJLGSFBLWDF4804-36-78 20:10:00 Test Item Value Reference Range Interpretation Comments Monocytes # (test code 0.6 See_Comment [Aut omated message] The = Monocytes #) system which generated this result tra nsmitted reference range : <=0.8. The reference r samantha was not used to int erpret this result as normal/abnormal . [facility]FenlsqkFIKWMJSXRT3168-84-30 20:10:00 Test Item Value Reference Range Interpretation Comments Eosinophils # (test code 0.2 See_Comment [A utomated message] The = Eosinophils #) system whic h generated this result tra nsmitted reference range : <=0.5. The reference r samantha was not used to int erpret this result as normal/abnormal . [facility] CenterLqpkywkVBTSDJDNQN5816-62-52 20:10:00 Test Item Value Reference Range Interpretation Comments Anisocyte (test code = 1+ *ABN*(12/14/21 Anisocyte) 3:10 PM) [facility] CenterYeoahrkHMCIHQAEAM0525-29-07 20:10:00 Test Item Value Reference Range Interpretation Comments Macrocyte (test code = 1+ *ABN*(12/14/21 Macrocyte) 3:10 PM) [facility]KLC0214[facility] 20:10:00 Test Item Value Reference Range Interpretation Comments Coronavirus (COVID-19) Detected MANUEL (test code = 4*ABN*(12/14/21 3:10 Coronavirus (COVID-19) PM) MANUEL) [facility] [id number] 20:10:00 Test Item Value Reference Range Interpretation Comments HS Troponin I Baseline (test code = HS 340 Troponin I Baseline) [facility] [id number] 20:10:00 Test Item Value Reference Range Interpretation Comments Glucose Lvl (test code = Glucose Lvl) 60 70-99 [facility]2022-07-17 20:10:00 Test Item Value Reference Range Interpretation Comments BUN (test code = BUN) 35 7-22 [facility] [id number] 20:10:00 Test Item Value Reference Range Interpretation Comments Creatinine Lvl (test code = Creatinine 6.10 0.50-1.40 Lvl) [place] 852792-07-17 20:10:00 Test Item Value Reference Range Interpretation Comments Sodium Lvl (test code = Sodium Lvl) 139 135-145 [place] 852792-07-17 20:10:00 Test Item Value Reference Range Interpretation Comments Potassium Lvl (test code = Potassium 3.1 3.5-5.1 Lvl) [place] 852792-07-17 20:10:00 Test Item Value Reference Range Interpretation Comments Chloride Lvl (test code = Chloride Lvl) 105 95-109 [place] 852792-07-17 20:10:00 Test Item Value Reference Range Interpretation Comments CO2 (test code = CO2) 28 24-32 [place] 852792-07-17 20:10:00 Test Item Value Reference Range Interpretation Comments Calcium Lvl (test code = Calcium Lvl) 8.1 8.5-10.5 [place] 852792-07-17 20:10:00 Test Item Value Reference Range Interpretation Comments Total Protein (test code = Total 5.8 6.4-8.4 Protein) [place] 852792-07-17 20:10:00 Test Item Value Reference Range Interpretation Comments Albumin Lvl (test code = Albumin Lvl) 2.6 3.5-5.0 [place] 852792-07-17 20:10:00 Test Item Value Reference Range Interpretation Comments ALT (test code = ALT) 74 See_Comment [Auto mated message] The system which ge nerated this result transmit swathi reference range : <=65. The reference range was not used to interpr et this result as deny l/abnormal. [place] 852792-07-17 20:10:00 Test Item Value Reference Range Interpretation Comments AST (test code = AST) 117 See_Comment [Auto mated message] The system which ge nerated this result transmit swathi reference range : <=37. The reference range was not used to interpr et this result as deny l/abnormal. [place] 852792-07-17 20:10:00 Test Item Value Reference Range Interpretation Comments Alk Phos (test code = Alk Phos) 241 39-136 [place] 852792-07-17 20:10:00 Test Item Value Reference Range Interpretation Comments Bili Total (test code = Bili Total) 0.8 0.2-1.3 [facility] [id number] 20:10:00 Test Item Value Reference Range Interpretation Comments HS Troponin I Baseline (test code = HS 340 Troponin I Baseline) [facility] [id number] 20:10:00 Test Item Value Reference Range Interpretation Comments Glucose Lvl (test code = Glucose Lvl) 60 70-99 [facility]2022-07-17 20:10:00 Test Item Value Reference Range Interpretation Comments BUN (test code = BUN) 35 7-22 [facility]2022-07-17 20:10:00 Test Item Value Reference Range Interpretation Comments Creatinine Lvl (test code = Creatinine 6.10 0.50-1.40 Lvl) [facility]2022-07-17 20:10:00 Test Item Value Reference Range Interpretation Comments Sodium Lvl (test code = Sodium Lvl) 139 135-145 [facility]2022-07-17 20:10:00 Test Item Value Reference Range Interpretation Comments Potassium Lvl (test code = Potassium 3.1 3.5-5.1 Lvl) [facility]2022-07-17 20:10:00 Test Item Value Reference Range Interpretation Comments AGAP (test code = AGAP) 9.1 10.0-20.0 [facility]2022-07-17 20:10:00 Test Item Value Reference Range Interpretation Comments Chloride Lvl (test code = Chloride Lvl) 105 95-109 [facility]2022-07-17 20:10:00 Test Item Value Reference Range Interpretation Comments CO2 (test code = CO2) 28 24-32 [facility]2022-07-17 20:10:00 Test Item Value Reference Range Interpretation Comments Calcium Lvl (test code = Calcium Lvl) 8.1 8.5-10.5 [facility]2022-07-17 20:10:00 Test Item Value Reference Range Interpretation Comments Total Protein (test code = Total 5.8 6.4-8.4 Protein) [facility]2022-07-17 20:10:00 Test Item Value Reference Range Interpretation Comments Albumin Lvl (test code = Albumin Lvl) 2.6 3.5-5.0 [facility] HospitalUpDown [id number] 20:10:00 Test Item Value Reference Range Interpretation Comments ALT (test code = ALT) 74 See_Comment [Auto mated message] The system which ge nerated this result transmit swathi reference range : <=65. The reference range was not used to interpr et this result as deny l/abnormal. [facility] [id number] 20:10:00 Test Item Value Reference Range Interpretation Comments AST (test code = AST) 117 See_Comment [Auto mated message] The system which ge nerated this result transmit swathi reference range : <=37. The reference range was not used to interpr et this result as deny l/abnormal. [facility] [employer] [id number] 20:10:00 Test Item Value Reference Range Interpretation Comments Alk Phos (test code = Alk Phos) 241 39-136 [facility] [id number] 20:10:00 Test Item Value Reference Range Interpretation Comments Bili Total (test code = Bili Total) 0.8 0.2-1.3 [facility] [id number] 20:10:00 Test Item Value Reference Range Interpretation Comments AGAP (test code = AGAP) 9.1 10.0-20.0 [facility] [employer] [id number] 20:10:00 Test Item Value Reference Range Interpretation Comments B/C Ratio (test code = B/C Ratio) 6 1 -25 [facility] [id number] 20:10:00 Test Item Value Reference Range Interpretation Comments B/C Ratio (test code = B/C Ratio) 6 1 -25 [facility] [id number] 20:10:00 Test Item Value Reference Range Interpretation Comments Globulin (test code = Globulin) 3.2 2.7-4.2 [facility] [id number] 20:10:00 Test Item Value Reference Range Interpretation Comments A/G Ratio (test code = A/G Ratio) 0.8 1 0.7-1.6 [facility] [id number] 20:10:00 Test Item Value Reference Range Interpretation Comments eGFR (test code = eGFR) 9 [facility] CenterGhzjhxsIRLWJLINHO5907-88-03 20:10:00 Test Item Value Reference Range Interpretation Comments WBC (test code = WBC) 4.3 3.7-10.4 [facility] CenterIwdmtawCPJSPWKXPC9941-20-56 20:10:00 Test Item Value Reference Range Interpretation Comments RBC (test code = RBC) 2.17 4.70-6.10 [facility] CenterNicooihVLEMITKDRC5697-64-82 20:10:00 Test Item Value Reference Range Interpretation Comments Hgb (test code = Hgb) 7.7 14.0-18.0 [place] 441032-07-17 20:10:00 Test Item Value Reference Range Interpretation Comments Hct (test code = Hct) 22.9 42.0-54.0 [facility] CenterVpvpkotALTYNSMRIF4519-21-05 20:10:00 Test Item Value Reference Range Interpretation Comments MCV (test code = MCV) 105.9 80.0-94.0 [facility] CenterOlhquxzYQNDJYDKIC0951-15-32 20:10:00 Test Item Value Reference Range Interpretation Comments MCH (test code = MCH) 35.4 pg 27.0-31.0 [facility]2022-07-17 20:10:00 Test Item Value Reference Range Interpretation Comments Globulin (test code = Globulin) 3.2 2.7-4.2 [facility] CenterRzdwlnqUDMHPTTXPU5386-01-20 20:10:00 Test Item Value Reference Range Interpretation Comments MCHC (test code = MCHC) 33.4 32.0-36.0 [facility] CenterRvuzyquTJPRFKOSJU7637-33-54 20:10:00 Test Item Value Reference Range Interpretation Comments RDW (test code = RDW) 23.6 11.5-14.5 [facility] CenterSpqbaqbPPKFZDCGPQ2948-28-12 20:10:00 Test Item Value Reference Range Interpretation Comments Platelet (test code = Platelet) 146 133-450 [facility] CenterXdosrlyMLCAQOKVQO0845-38-27 20:10:00 Test Item Value Reference Range Interpretation Comments MPV (test code = MPV) 8.0 7.4-10.4 [place] 441032-07-17 20:10:00 Test Item Value Reference Range Interpretation Comments Plt Morph (test code = Normal (12/14/21 3:10 Plt Morph) PM) [facility] CenterZjixtgoLQWKGGTTMK9592-21-70 20:10:00 Test Item Value Reference Range Interpretation Comments Segs (test code = Segs) 67.4 45.0-75.0 [place] [address]-07-17 20:10:00 Test Item Value Reference Range Interpretation Comments Lymphocytes (test code = Lymphocytes) 12.8 20.0-40.0 [place] [address]-07-17 20:10:00 Test Item Value Reference Range Interpretation Comments Monocytes (test code = Monocytes) 15.1 2.0-12.0 [place] 441032-07-17 20:10:00 Test Item Value Reference Range Interpretation Comments Eosinophils (test code = 4.1 See_Comment [A utomated message] The Eosinophils) system which ge nerated this result tra nsmitted reference range : <=4.0. The reference r samantha was not used to int erpret this result as normal/abnormal . [place] [address]-07-17 20:10:00 Test Item Value Reference Range Interpretation Comments Basophils (test code = 0.6 See_Comment [Aut omated message] The Basophils) system which ge nerated this result tra nsmitted reference range : <=1.0. The reference r samantha was not used to int erpret this result as normal/abnormal . [facility]2022-07-17 20:10:00 Test Item Value Reference Range Interpretation Comments A/G Ratio (test code = A/G Ratio) 0.8 1 0.7-1.6 [place] 441032-07-17 20:10:00 Test Item Value Reference Range Interpretation Comments Neutrophils # (test code = Neutrophils 2.9 1.5-8.1 #) [place] 441032-07-17 20:10:00 Test Item Value Reference Range Interpretation Comments Lymphocytes # (test code = Lymphocytes 0.5 1.0-5.5 #) [place] [address]-07-17 20:10:00 Test Item Value Reference Range Interpretation Comments Monocytes # (test code 0.6 See_Comment [Aut omated message] The = Monocytes #) system which generated this result tra nsmitted reference range : <=0.8. The reference r samantha was not used to int erpret this result as normal/abnormal . [place] [address]-07-17 20:10:00 Test Item Value Reference Range Interpretation Comments Eosinophils # (test code 0.2 See_Comment [A utomated message] The = Eosinophils #) system whic h generated this result tra nsmitted reference range : <=0.5. The reference r samantha was not used to int erpret this result as normal/abnormal . [facility] CenterIimrtofOAHTIUXCZT9354-50-70 20:10:00 Test Item Value Reference Range Interpretation Comments Anisocyte (test code = 1+ *ABN*(12/14/21 Anisocyte) 3:10 PM) [facility] CenterKmgwmscQYYVGMSRAY8513-59-57 20:10:00 Test Item Value Reference Range Interpretation Comments Macrocyte (test code = 1+ *ABN*(12/14/21 Macrocyte) 3:10 PM) [facility] HospitalJhnfmznTPCUJAKNBT6399-68-16 20:10:00 Test Item Value Reference Range Interpretation Comments Coronavirus (COVID-19) Detected MANUEL (test code = 4*ABN*(12/14/21 3:10 Coronavirus (COVID-19) PM) MANUEL) [facility] HospitalCHEM [id number] 20:10:00 Test Item Value Reference Range Interpretation Comments eGFR (test code = eGFR) 9 [facility] CenterXwtvowfNSKYDTLPCP9347-74-39 20:10:00 Test Item Value Reference Range Interpretation Comments WBC (test code = WBC) 4.3 3.7-10.4 [facility] CenterUplzakqWDSJZQNRVM2598-32-25 20:10:00 Test Item Value Reference Range Interpretation Comments RBC (test code = RBC) 2.17 4.70-6.10 [facility] CenterPhjmntvMWLALIGYSO8720-96-29 20:10:00 Test Item Value Reference Range Interpretation Comments Hgb (test code = Hgb) 7.7 14.0-18.0 [facility] CenterEjpchfiBLARNNETVU5519-35-56 20:10:00 Test Item Value Reference Range Interpretation Comments Hct (test code = Hct) 22.9 42.0-54.0 [place] 441032-07-17 20:10:00 Test Item Value Reference Range Interpretation Comments MCV (test code = MCV) 105.9 80.0-94.0 [facility] CenterBgexerkRIDCJEWKJM1418-44-04 20:10:00 Test Item Value Reference Range Interpretation Comments MCH (test code = MCH) 35.4 pg 27.0-31.0 [facility] CenterUpxrwthJBNEXQMLXA0346-19-78 20:10:00 Test Item Value Reference Range Interpretation Comments MCHC (test code = MCHC) 33.4 32.0-36.0 [facility] CenterBrnuemeVREAXXKNVD0150-33-25 20:10:00 Test Item Value Reference Range Interpretation Comments RDW (test code = RDW) 23.6 11.5-14.5 [facility] CenterPucozpaKYLJLEPIGU5028-89-75 20:10:00 Test Item Value Reference Range Interpretation Comments Platelet (test code = Platelet) 146 133-450 [place] 441032-07-17 20:10:00 Test Item Value Reference Range Interpretation Comments MPV (test code = MPV) 8.0 7.4-10.4 [place] 441032-07-17 20:10:00 Test Item Value Reference Range Interpretation Comments Plt Morph (test code = Normal (12/14/21 3:10 Plt Morph) PM) [place] 441032-07-17 20:10:00 Test Item Value Reference Range Interpretation Comments Segs (test code = Segs) 67.4 45.0-75.0 [facility] CenterIxvhhuhFQXIQMCCUH5999-59-59 20:10:00 Test Item Value Reference Range Interpretation Comments Lymphocytes (test code = Lymphocytes) 12.8 20.0-40.0 [place] 441032-07-17 20:10:00 Test Item Value Reference Range Interpretation Comments Monocytes (test code = Monocytes) 15.1 2.0-12.0 [facility] CenterKvvzfogPUNWRZBQWQ6049-84-89 20:10:00 Test Item Value Reference Range Interpretation Comments Eosinophils (test code = 4.1 See_Comment [A utomated message] The Eosinophils) system which ge nerated this result tra nsmitted reference range : <=4.0. The reference r samantha was not used to int erpret this result as normal/abnormal . [place] 441032-07-17 20:10:00 Test Item Value Reference Range Interpretation Comments Basophils (test code = 0.6 See_Comment [Aut omated message] The Basophils) system which ge nerated this result tra nsmitted reference range : <=1.0. The reference r samantha was not used to int erpret this result as normal/abnormal . [place] 441032-07-17 20:10:00 Test Item Value Reference Range Interpretation Comments Neutrophils # (test code = Neutrophils 2.9 1.5-8.1 #) [facility]nzghybSSPZMGRYXU4975-15-08 20:10:00 Test Item Value Reference Range Interpretation Comments Lymphocytes # (test code = Lymphocytes 0.5 1.0-5.5 #) [facility] CenterPdcxrpaWSNKAQQAZF5990-73-81 20:10:00 Test Item Value Reference Range Interpretation Comments Monocytes # (test code 0.6 See_Comment [Aut omated message] The = Monocytes #) system which generated this result tra nsmitted reference range : <=0.8. The reference r samantha was not used to int erpret this result as normal/abnormal . [facility] CenterPlckmkwRHAXFLNVZY6183-47-51 20:10:00 Test Item Value Reference Range Interpretation Comments Eosinophils # (test code 0.2 See_Comment [A utomated message] The = Eosinophils #) system whic h generated this result tra nsmitted reference range : <=0.5. The reference r samantha was not used to int erpret this result as normal/abnormal . [facility] CenterRbqisjvOJAAKYYCBG9104-66-47 20:10:00 Test Item Value Reference Range Interpretation Comments Anisocyte (test code = 1+ *ABN*(12/14/21 Anisocyte) 3:10 PM) [facility] CenterRuohoypYCXNOROTXK0046-90-67 20:10:00 Test Item Value Reference Range Interpretation Comments Macrocyte (test code = 1+ *ABN*(12/14/21 Macrocyte) 3:10 PM) [facility] HospitalRrezrluFDDDKERQSY7222-94-13 20:10:00 Test Item Value Reference Range Interpretation Comments Coronavirus (COVID-19) Detected MANUEL (test code = 4*ABN*(12/14/21 3:10 Coronavirus (COVID-19) PM) MANUEL) [facility] HospitalCARDIAC UNASLGG8458-68-25 20:10:00 Test Item Value Reference Range Interpretation Comments HS Troponin I Baseline (test code = HS 340 Troponin I Baseline) [facility] MWVIC9539-92-43 20:10:00 Test Item Value Reference Range Interpretation Comments Glucose Lvl (test code = Glucose Lvl) 60 70-99 [facility]2022-07-17 20:10:00 Test Item Value Reference Range Interpretation Comments BUN (test code = BUN) 35 7-22 [facility] PIQKE0399-17-21 20:10:00 Test Item Value Reference Range Interpretation Comments Creatinine Lvl (test code = Creatinine 6.10 0.50-1.40 Lvl) [place] 852792-07-17 20:10:00 Test Item Value Reference Range Interpretation Comments Sodium Lvl (test code = Sodium Lvl) 139 135-145 [place] 852792-07-17 20:10:00 Test Item Value Reference Range Interpretation Comments Potassium Lvl (test code = Potassium 3.1 3.5-5.1 Lvl) [place] 852792-07-17 20:10:00 Test Item Value Reference Range Interpretation Comments Chloride Lvl (test code = Chloride Lvl) 105 95-109 [place] 852792-07-17 20:10:00 Test Item Value Reference Range Interpretation Comments CO2 (test code = CO2) 28 24-32 [place] 852792-07-17 20:10:00 Test Item Value Reference Range Interpretation Comments Calcium Lvl (test code = Calcium Lvl) 8.1 8.5-10.5 [place] 852792-07-17 20:10:00 Test Item Value Reference Range Interpretation Comments Total Protein (test code = Total 5.8 6.4-8.4 Protein) [place] 852792-07-17 20:10:00 Test Item Value Reference Range Interpretation Comments Albumin Lvl (test code = Albumin Lvl) 2.6 3.5-5.0 [place] 852792-07-17 20:10:00 Test Item Value Reference Range Interpretation Comments ALT (test code = ALT) 74 See_Comment [Auto mated message] The system which [employer] nerated this result transmit swathi reference range : <=65. The reference range was not used to interpr et this result as deny l/abnormal. [place] 852792-07-17 20:10:00 Test Item Value Reference Range Interpretation Comments AST (test code = AST) 117 See_Comment [Auto mated message] The system which [employer] nerated this result transmit swathi reference range : <=37. The reference range was not used to interpr et this result as deny l/abnormal. [place] 852792-07-17 20:10:00 Test Item Value Reference Range Interpretation Comments Alk Phos (test code = Alk Phos) 241 39-136 [place] [address]-07-17 20:10:00 Test Item Value Reference Range Interpretation Comments Bili Total (test code = Bili Total) 0.8 0.2-1.3 [place] 852792-07-17 20:10:00 Test Item Value Reference Range Interpretation Comments AGAP (test code = AGAP) 9.1 10.0-20.0 [place] 852792-07-17 20:10:00 Test Item Value Reference Range Interpretation Comments B/C Ratio (test code = B/C Ratio) 6 1 6-25 [place] 852792-07-17 20:10:00 Test Item Value Reference Range Interpretation Comments Globulin (test code = Globulin) 3.2 2.7-4.2 [place] 852792-07-17 20:10:00 Test Item Value Reference Range Interpretation Comments A/G Ratio (test code = A/G Ratio) 0.8 1 0.7-1.6 [place] 852792-07-17 20:10:00 Test Item Value Reference Range Interpretation Comments eGFR (test code = eGFR) 9 [facility] CenterPenvwwfYRFSNDOWNA7589-24-18 20:10:00 Test Item Value Reference Range Interpretation Comments WBC (test code = WBC) 4.3 3.7-10.4 [place] 441032-07-17 20:10:00 Test Item Value Reference Range Interpretation Comments RBC (test code = RBC) 2.17 4.70-6.10 [facility] CenterNoefgqaUTDWENTTTT4902-83-54 20:10:00 Test Item Value Reference Range Interpretation Comments Hgb (test code = Hgb) 7.7 14.0-18.0 [place] 441032-07-17 20:10:00 Test Item Value Reference Range Interpretation Comments Hct (test code = Hct) 22.9 42.0-54.0 [place] 441032-07-17 20:10:00 Test Item Value Reference Range Interpretation Comments MCV (test code = MCV) 105.9 80.0-94.0 [place] [address]-07-17 20:10:00 Test Item Value Reference Range Interpretation Comments MCH (test code = MCH) 35.4 pg 27.0-31.0 [place] 441032-07-17 20:10:00 Test Item Value Reference Range Interpretation Comments MCHC (test code = MCHC) 33.4 32.0-36.0 [facility] CenterAxouaplFCGHHLJYCB8610-71-63 20:10:00 Test Item Value Reference Range Interpretation Comments RDW (test code = RDW) 23.6 11.5-14.5 [place] 441032-07-17 20:10:00 Test Item Value Reference Range Interpretation Comments Platelet (test code = Platelet) 146 133-450 [facility] CenterFtwmgkaPKPUYAIZVI4760-50-35 20:10:00 Test Item Value Reference Range Interpretation Comments MPV (test code = MPV) 8.0 7.4-10.4 [facility] CenterEbbutqiAHJWUQFJEV7522-94-62 20:10:00 Test Item Value Reference Range Interpretation Comments Plt Morph (test code = Normal (12/14/21 3:10 Plt Morph) PM) [facility] CenterIitaawwBJUHFWXNQK0437-17-31 20:10:00 Test Item Value Reference Range Interpretation Comments Segs (test code = Segs) 67.4 45.0-75.0 [facility] CenterJmufkcnBYASFYSWEK9379-59-65 20:10:00 Test Item Value Reference Range Interpretation Comments Lymphocytes (test code = Lymphocytes) 12.8 20.0-40.0 [facility] CenterYhmtbfiFOASXXRAZP0632-75-61 20:10:00 Test Item Value Reference Range Interpretation Comments Monocytes (test code = Monocytes) 15.1 2.0-12.0 [facility] CenterDekaisbGELRKBHUPT7525-50-40 20:10:00 Test Item Value Reference Range Interpretation Comments Eosinophils (test code = 4.1 See_Comment [A utomated message] The Eosinophils) system which ge nerated this result tra nsmitted reference range : <=4.0. The reference r samantha was not used to int erpret this result as normal/abnormal . [facility] CenterGctkevqZFRCEPYSGU7304-00-60 20:10:00 Test Item Value Reference Range Interpretation Comments Basophils (test code = 0.6 See_Comment [Aut omated message] The Basophils) system which ge nerated this result tra nsmitted reference range : <=1.0. The reference r samantha was not used to int erpret this result as normal/abnormal . [facility] CenterXbdyoooYAIOCLYTMN5076-93-88 20:10:00 Test Item Value Reference Range Interpretation Comments Neutrophils # (test code = Neutrophils 2.9 1.5-8.1 #) [facility] HospitalZkaznmeKWAANRKGHK3691-26-04 20:10:00 Test Item Value Reference Range Interpretation Comments Lymphocytes # (test code = Lymphocytes 0.5 1.0-5.5 #) [facility]NzcrmtvURQYZTAFOX1922-95-26 20:10:00 Test Item Value Reference Range Interpretation Comments Monocytes # (test code 0.6 See_Comment [Aut omated message] The = Monocytes #) system which generated this result tra nsmitted reference range : <=0.8. The reference r samantha was not used to int erpret this result as normal/abnormal . [facility] CenterBgulpswZXHINJXQEI8981-54-35 20:10:00 Test Item Value Reference Range Interpretation Comments Eosinophils # (test code 0.2 See_Comment [A utomated message] The = Eosinophils #) system whic h generated this result tra nsmitted reference range : <=0.5. The reference r samantha was not used to int erpret this result as normal/abnormal . [facility] HospitalYpnniepKXUXRPELEB6719-74-23 20:10:00 Test Item Value Reference Range Interpretation Comments Anisocyte (test code = 1+ *ABN*(12/14/21 Anisocyte) 3:10 PM) [facility] HospitalNixnhevVWLFSAYFKY3273-58-11 20:10:00 Test Item Value Reference Range Interpretation Comments Macrocyte (test code = 1+ *ABN*(12/14/21 Macrocyte) 3:10 PM) [facility]WEJV0327[facility]30-71 20:10:00 Test Item Value Reference Range Interpretation Comments Coronavirus (COVID-19) Detected MANUEL (test code = 4*ABN*(12/14/21 3:10 Coronavirus (COVID-19) PM) MANUEL) [facility] [id number] 20:10:00 Test Item Value Reference Range Interpretation Comments HS Troponin I Baseline (test code = HS 340 Troponin I Baseline) [facility] [id number] 20:10:00 Test Item Value Reference Range Interpretation Comments Glucose Lvl (test code = Glucose Lvl) 60 70-99 [facility] [id number] 20:10:00 Test Item Value Reference Range Interpretation Comments BUN (test code = BUN) 35 7-22 [facility] [address]326ETFAE4544-77-28 20:10:00 Test Item Value Reference Range Interpretation Comments Creatinine Lvl (test code = Creatinine 6.10 0.50-1.40 Lvl) [address]07-17 20:10:00 Test Item Value Reference Range Interpretation Comments Sodium Lvl (test code = Sodium Lvl) 139 135-145 [place] 852792-07-17 20:10:00 Test Item Value Reference Range Interpretation Comments Potassium Lvl (test code = Potassium 3.1 3.5-5.1 Lvl) [place] 852792-07-17 20:10:00 Test Item Value Reference Range Interpretation Comments Chloride Lvl (test code = Chloride Lvl) 105 95-109 [place] 852792-07-17 20:10:00 Test Item Value Reference Range Interpretation Comments CO2 (test code = CO2) 28 24-32 [place] [address]-07-17 20:10:00 Test Item Value Reference Range Interpretation Comments Calcium Lvl (test code = Calcium Lvl) 8.1 8.5-10.5 [place] 852792-07-17 20:10:00 Test Item Value Reference Range Interpretation Comments Total Protein (test code = Total 5.8 6.4-8.4 Protein) [place] [address]-07-17 20:10:00 Test Item Value Reference Range Interpretation Comments Albumin Lvl (test code = Albumin Lvl) 2.6 3.5-5.0 [place] 852792-07-17 20:10:00 Test Item Value Reference Range Interpretation Comments ALT (test code = ALT) 74 See_Comment [Auto mated message] The system which ge nerated this result transmit swathi reference range : <=65. The reference range was not used to interpr et this result as deny l/abnormal. [facility] [id number] 20:10:00 Test Item Value Reference Range Interpretation Comments AST (test code = AST) 117 See_Comment [Auto mated message] The system which ge nerated this result transmit swathi reference range : <=37. The reference range was not used to interpr et this result as deny l/abnormal. [facility] [id number] 20:10:00 Test Item Value Reference Range Interpretation Comments Alk Phos (test code = Alk Phos) 241 39-136 [facility]2022-07-17 20:10:00 Test Item Value Reference Range Interpretation Comments Bili Total (test code = Bili Total) 0.8 0.2-1.3 [facility]2022-07-17 20:10:00 Test Item Value Reference Range Interpretation Comments AGAP (test code = AGAP) 9.1 10.0-20.0 [facility]2022-07-17 20:10:00 Test Item Value Reference Range Interpretation Comments B/C Ratio (test code = B/C Ratio) 6 1 6-25 [facility]2022-07-17 20:10:00 Test Item Value Reference Range Interpretation Comments Globulin (test code = Globulin) 3.2 2.7-4.2 [facility]2022-07-17 20:10:00 Test Item Value Reference Range Interpretation Comments A/G Ratio (test code = A/G Ratio) 0.8 1 0.7-1.6 [place] 852792-07-17 20:10:00 Test Item Value Reference Range Interpretation Comments eGFR (test code = eGFR) 9 [facility]TfjrqpkYDUDEETFWZ9551-40-41 20:10:00 Test Item Value Reference Range Interpretation Comments WBC (test code = WBC) 4.3 3.7-10.4 [facility] CenterMojaekkNRFNQLLIKX3369-62-29 20:10:00 Test Item Value Reference Range Interpretation Comments RBC (test code = RBC) 2.17 4.70-6.10 [facility] CenterBcvvffuOJVVODLYCY9028-58-75 20:10:00 Test Item Value Reference Range Interpretation Comments Hgb (test code = Hgb) 7.7 14.0-18.0 [place] 441032-07-17 20:10:00 Test Item Value Reference Range Interpretation Comments Hct (test code = Hct) 22.9 42.0-54.0 [place] 441032-07-17 20:10:00 Test Item Value Reference Range Interpretation Comments MCV (test code = MCV) 105.9 80.0-94.0 [place] 441032-07-17 20:10:00 Test Item Value Reference Range Interpretation Comments MCH (test code = MCH) 35.4 pg 27.0-31.0 [place] 441032-07-17 20:10:00 Test Item Value Reference Range Interpretation Comments MCHC (test code = MCHC) 33.4 32.0-36.0 [place] 441032-07-17 20:10:00 Test Item Value Reference Range Interpretation Comments RDW (test code = RDW) 23.6 11.5-14.5 [facility] CenterZuupstvLZYFKSXCVM9100-83-45 20:10:00 Test Item Value Reference Range Interpretation Comments Platelet (test code = Platelet) 146 133-450 [facility] CenterZmzzxeqZWRUDRDLPF1509-21-28 20:10:00 Test Item Value Reference Range Interpretation Comments MPV (test code = MPV) 8.0 7.4-10.4 [place] 441032-07-17 20:10:00 Test Item Value Reference Range Interpretation Comments Plt Morph (test code = Normal (12/14/21 3:10 Plt Morph) PM) [facility] CenterZmxbokhXXIGXTDRYV0492-11-74 20:10:00 Test Item Value Reference Range Interpretation Comments Segs (test code = Segs) 67.4 45.0-75.0 [facility] CenterXltjwqxOLDLJVGMQI2338-95-00 20:10:00 Test Item Value Reference Range Interpretation Comments Lymphocytes (test code = Lymphocytes) 12.8 20.0-40.0 [place] 441032-07-17 20:10:00 Test Item Value Reference Range Interpretation Comments Monocytes (test code = Monocytes) 15.1 2.0-12.0 [place] 441032-07-17 20:10:00 Test Item Value Reference Range Interpretation Comments Eosinophils (test code = 4.1 See_Comment [A utomated message] The Eosinophils) system which ge nerated this result tra nsmitted reference range : <=4.0. The reference r samantha was not used to int erpret this result as normal/abnormal . [place] 441032-07-17 20:10:00 Test Item Value Reference Range Interpretation Comments Basophils (test code = 0.6 See_Comment [Aut omated message] The Basophils) system which ge nerated this result tra nsmitted reference range : <=1.0. The reference r samantha was not used to int erpret this result as normal/abnormal . [place] 441032-07-17 20:10:00 Test Item Value Reference Range Interpretation Comments Neutrophils # (test code = Neutrophils 2.9 1.5-8.1 #) [facility]uqkohfTDDHNILJIX7699-06-56 20:10:00 Test Item Value Reference Range Interpretation Comments Lymphocytes # (test code = Lymphocytes 0.5 1.0-5.5 #) [facility] CenterLcihiekSYAMOLOGAG8848-81-61 20:10:00 Test Item Value Reference Range Interpretation Comments Monocytes # (test code 0.6 See_Comment [Aut omated message] The = Monocytes #) system which generated this result tra nsmitted reference range : <=0.8. The reference r samantha was not used to int erpret this result as normal/abnormal . [facility] CenterRfcgyvnCOMDPEWBLQ6396-79-19 20:10:00 Test Item Value Reference Range Interpretation Comments Eosinophils # (test code 0.2 See_Comment [A utomated message] The = Eosinophils #) system whic h generated this result tra nsmitted reference range : <=0.5. The reference r samantha was not used to int erpret this result as normal/abnormal . [facility] CenterHfhtirxNMKEQSPDEI3472-91-52 20:10:00 Test Item Value Reference Range Interpretation Comments Anisocyte (test code = 1+ *ABN*(12/14/21 Anisocyte) 3:10 PM) [facility] CenterUmbcfkyRGWQNLXSTL2242-25-91 20:10:00 Test Item Value Reference Range Interpretation Comments Macrocyte (test code = 1+ *ABN*(12/14/21 Macrocyte) 3:10 PM) [facility] HospitalTfgjpgxWLKFXYWTFU6321-56-89 20:10:00 Test Item Value Reference Range Interpretation Comments Coronavirus (COVID-19) Detected MANUEL (test code = 4*ABN*(12/14/21 3:10 Coronavirus (COVID-19) PM) MANUEL) [facility] [id number] 20:10:00 Test Item Value Reference Range Interpretation Comments HS Troponin I Baseline (test code = HS 340 Troponin I Baseline) [facility] [id number] 20:10:00 Test Item Value Reference Range Interpretation Comments Glucose Lvl (test code = Glucose Lvl) 60 70-99 [facility] [id number] 20:10:00 Test Item Value Reference Range Interpretation Comments BUN (test code = BUN) 35 7-22 [place] 852792-07-17 20:10:00 Test Item Value Reference Range Interpretation Comments Creatinine Lvl (test code = Creatinine 6.10 0.50-1.40 Lvl) [place] 852792-07-17 20:10:00 Test Item Value Reference Range Interpretation Comments Sodium Lvl (test code = Sodium Lvl) 139 135-145 [place] 852792-07-17 20:10:00 Test Item Value Reference Range Interpretation Comments Potassium Lvl (test code = Potassium 3.1 3.5-5.1 Lvl) [place] [address]-07-17 20:10:00 Test Item Value Reference Range Interpretation Comments Chloride Lvl (test code = Chloride Lvl) 105 95-109 [place] 852792-07-17 20:10:00 Test Item Value Reference Range Interpretation Comments CO2 (test code = CO2) 28 24-32 [place] 852792-07-17 20:10:00 Test Item Value Reference Range Interpretation Comments Calcium Lvl (test code = Calcium Lvl) 8.1 8.5-10.5 [place] [address]-07-17 20:10:00 Test Item Value Reference Range Interpretation Comments Total Protein (test code = Total 5.8 6.4-8.4 Protein) [place] [address]-07-17 20:10:00 Test Item Value Reference Range Interpretation Comments Albumin Lvl (test code = Albumin Lvl) 2.6 3.5-5.0 [place] 852792-07-17 20:10:00 Test Item Value Reference Range Interpretation Comments ALT (test code = ALT) 74 See_Comment [Auto mated message] The system which [employer] nerated this result transmit swathi reference range : <=65. The reference range was not used to interpr et this result as deny l/abnormal. [place] 852792-07-17 20:10:00 Test Item Value Reference Range Interpretation Comments AST (test code = AST) 117 See_Comment [Auto mated message] The system which ge nerated this result transmit swathi reference range : <=37. The reference range was not used to interpr et this result as deny l/abnormal. [place] [address]-07-17 20:10:00 Test Item Value Reference Range Interpretation Comments Alk Phos (test code = Alk Phos) 241 39-136 [facility]2022-07-17 20:10:00 Test Item Value Reference Range Interpretation Comments Bili Total (test code = Bili Total) 0.8 0.2-1.3 [place] 852792-07-17 20:10:00 Test Item Value Reference Range Interpretation Comments AGAP (test code = AGAP) 9.1 10.0-20.0 [place] 852792-07-17 20:10:00 Test Item Value Reference Range Interpretation Comments B/C Ratio (test code = B/C Ratio) 6 1 6-25 [place] 852792-07-17 20:10:00 Test Item Value Reference Range Interpretation Comments Globulin (test code = Globulin) 3.2 2.7-4.2 [place] 852792-07-17 20:10:00 Test Item Value Reference Range Interpretation Comments A/G Ratio (test code = A/G Ratio) 0.8 1 0.7-1.6 [place] 852792-07-17 20:10:00 Test Item Value Reference Range Interpretation Comments eGFR (test code = eGFR) 9 [facility] CenterUgzfzfhZKSBOTFZXW5509-85-32 20:10:00 Test Item Value Reference Range Interpretation Comments WBC (test code = WBC) 4.3 3.7-10.4 [place] 441032-07-17 20:10:00 Test Item Value Reference Range Interpretation Comments RBC (test code = RBC) 2.17 4.70-6.10 [place] 441032-07-17 20:10:00 Test Item Value Reference Range Interpretation Comments Hgb (test code = Hgb) 7.7 14.0-18.0 [place] 441032-07-17 20:10:00 Test Item Value Reference Range Interpretation Comments Hct (test code = Hct) 22.9 42.0-54.0 [place] [address]-07-17 20:10:00 Test Item Value Reference Range Interpretation Comments MCV (test code = MCV) 105.9 80.0-94.0 [place] [address]-07-17 20:10:00 Test Item Value Reference Range Interpretation Comments MCH (test code = MCH) 35.4 pg 27.0-31.0 [facility] CenterBqahqntREKGXCNGJJ3308-70-89 20:10:00 Test Item Value Reference Range Interpretation Comments MCHC (test code = MCHC) 33.4 32.0-36.0 [facility] CenterOnnyfksFEQZSNIUBH4509-01-15 20:10:00 Test Item Value Reference Range Interpretation Comments RDW (test code = RDW) 23.6 11.5-14.5 [facility] CenterVempgywHMBIACYTYE0689-32-50 20:10:00 Test Item Value Reference Range Interpretation Comments Platelet (test code = Platelet) 146 133-450 [facility] CenterTdystccQHUPXUGUFA6259-07-47 20:10:00 Test Item Value Reference Range Interpretation Comments MPV (test code = MPV) 8.0 7.4-10.4 [facility] CenterZwjsxnuIBBTXALZQU1676-71-17 20:10:00 Test Item Value Reference Range Interpretation Comments Plt Morph (test code = Normal (12/14/21 3:10 Plt Morph) PM) [facility] CenterUiwuhuiQQEWHTFZVM0214-67-19 20:10:00 Test Item Value Reference Range Interpretation Comments Segs (test code = Segs) 67.4 45.0-75.0 [facility] CenterGapwawnUXQFRZLHXM3070-60-48 20:10:00 Test Item Value Reference Range Interpretation Comments Lymphocytes (test code = Lymphocytes) 12.8 20.0-40.0 [facility] CenterYxwdelvKXAYMCPWBC0521-76-36 20:10:00 Test Item Value Reference Range Interpretation Comments Monocytes (test code = Monocytes) 15.1 2.0-12.0 [facility] CenterScgojxqLIMSYJHVWB4412-47-95 20:10:00 Test Item Value Reference Range Interpretation Comments Eosinophils (test code = 4.1 See_Comment [A utomated message] The Eosinophils) system which ge nerated this result tra nsmitted reference range : <=4.0. The reference r samantha was not used to int erpret this result as normal/abnormal . [facility] CenterBwtbmgaVHVSZUTFYZ6456-38-73 20:10:00 Test Item Value Reference Range Interpretation Comments Basophils (test code = 0.6 See_Comment [Aut omated message] The Basophils) system which ge nerated this result tra nsmitted reference range : <=1.0. The reference r samantha was not used to int erpret this result as normal/abnormal . [place] 441032-07-17 20:10:00 Test Item Value Reference Range Interpretation Comments Neutrophils # (test code = Neutrophils 2.9 1.5-8.1 #) [facility] CenterAimixfjJIYFNNDLZW6615-01-68 20:10:00 Test Item Value Reference Range Interpretation Comments Lymphocytes # (test code = Lymphocytes 0.5 1.0-5.5 #) [facility] CenterRvaqmxvZVYUDYWLIS8208-87-22 20:10:00 Test Item Value Reference Range Interpretation Comments Monocytes # (test code 0.6 See_Comment [Aut omated message] The = Monocytes #) system which generated this result tra nsmitted reference range : <=0.8. The reference r samantha was not used to int erpret this result as normal/abnormal . [facility] CenterFyhoiwmNUMVKSVLSW8074-90-92 20:10:00 Test Item Value Reference Range Interpretation Comments Eosinophils # (test code 0.2 See_Comment [A utomated message] The = Eosinophils #) system whic h generated this result tra nsmitted reference range : <=0.5. The reference r samantha was not used to int erpret this result as normal/abnormal . [facility] CenterHpvehtwCEBNTHBKPB9168-28-68 20:10:00 Test Item Value Reference Range Interpretation Comments Anisocyte (test code = 1+ *ABN*(12/14/21 Anisocyte) 3:10 PM) [facility] CenterKruvzroFBEATHJEEK5475-31-80 20:10:00 Test Item Value Reference Range Interpretation Comments Macrocyte (test code = 1+ *ABN*(12/14/21 Macrocyte) 3:10 PM) [facility] HospitalMsfeoewIIVOVLLLVG5979-20-25 20:10:00 Test Item Value Reference Range Interpretation Comments Coronavirus (COVID-19) Detected MANUEL (test code = 4*ABN*(12/14/21 3:10 Coronavirus (COVID-19) PM) MANUEL) [facility] [id number] 01:43:00 Test Item Value Reference Range Interpretation Comments Occult Bld Stl (test Negative (12/03/21 8:43 code = Occult Bld Stl) PM) [facility] [id number] 01:43:00 Test Item Value Reference Range Interpretation Comments Occult Bld Stl (test Negative (12/03/21 8:43 code = Occult Bld Stl) PM) [facility] AND [id number] 01:43:00 Test Item Value Reference Range Interpretation Comments Occult Bld Stl (test Negative (12/03/21 8:43 code = Occult Bld Stl) PM) [facility] AND [id number] 01:43:00 Test Item Value Reference Range Interpretation Comments Occult Bld Stl (test Negative (12/03/21 8:43 code = Occult Bld Stl) PM) [facility] AND [id number] 01:43:00 Test Item Value Reference Range Interpretation Comments Occult Bld Stl (test Negative (12/03/21 8:43 code = Occult Bld Stl) PM) [facility] AND [id number] 01:43:00 Test Item Value Reference Range Interpretation Comments Occult Bld Stl (test Negative (12/03/21 8:43 code = Occult Bld Stl) PM) [facility] AND [id number] 01:43:00 Test Item Value Reference Range Interpretation Comments Occult Bld Stl (test Negative (12/03/21 8:43 code = Occult Bld Stl) PM) [facility] AND [id number] 01:43:00 Test Item Value Reference Range Interpretation Comments Occult Bld Stl (test Negative (12/03/21 8:43 code = Occult Bld Stl) PM) [facility] [id number] 01:29:00 Test Item Value Reference Range Interpretation Comments RBC product (test code Product available = RBC product) 2(12/03/21 8:29 PM) [facility] [id number] 01:29:00 Test Item Value Reference Range Interpretation Comments RBC product (test code Product available = RBC product) 2(12/03/21 8:29 PM) [facility] [id number] 01:29:00 Test Item Value Reference Range Interpretation Comments RBC product (test code Product available = RBC product) 2(12/03/21 8:29 PM) [facility] [id number] 01:29:00 Test Item Value Reference Range Interpretation Comments RBC product (test code Product available = RBC product) 2(12/03/21 8:29 PM) [facility] [id number] 01:29:00 Test Item Value Reference Range Interpretation Comments RBC product (test code Product available = RBC product) 2(12/03/21 8:29 PM) [facility] [id number] 01:29:00 Test Item Value Reference Range Interpretation Comments RBC product (test code Product available = RBC product) 2(12/03/21 8:29 PM) [facility] [id number] 01:29:00 Test Item Value Reference Range Interpretation Comments RBC product (test code Product available = RBC product) 2(12/03/21 8:29 PM) [facility] [id number] 01:29:00 Test Item Value Reference Range Interpretation Comments RBC product (test code Product available = RBC product) 2(12/03/21 8:29 PM) [facility] [id number] 00:36:00 Test Item Value Reference Range Interpretation Comments ABO/Rh (test code = ABO/Rh) AB POS [facility] [id number] 00:36:00 Test Item Value Reference Range Interpretation Comments Antibody Scrn (test Negative (12/03/21 7:36 code = Antibody Scrn) PM) [facility]2022-07-07 00:36:00 Test Item Value Reference Range Interpretation Comments Glucose Lvl (test code = Glucose Lvl) 143 70-99 [facility] [id number] 00:36:00 Test Item Value Reference Range Interpretation Comments BUN (test code = BUN) 39 7-22 [facility] [id number] 00:36:00 Test Item Value Reference Range Interpretation Comments Creatinine Lvl (test code = Creatinine 5.46 0.50-1.40 Lvl) [facility] [id number] 00:36:00 Test Item Value Reference Range Interpretation Comments Sodium Lvl (test code = Sodium Lvl) 136 135-145 [facility] [id number] 00:36:00 Test Item Value Reference Range Interpretation Comments Potassium Lvl (test code = Potassium 4.2 3.5-5.1 Lvl) [facility] [id number] 00:36:00 Test Item Value Reference Range Interpretation Comments Chloride Lvl (test code = Chloride Lvl) 100 95-109 [facility]2022-07-07 00:36:00 Test Item Value Reference Range Interpretation Comments CO2 (test code = CO2) 27 24-32 [facility]2022-07-07 00:36:00 Test Item Value Reference Range Interpretation Comments Calcium Lvl (test code = Calcium Lvl) 8.9 8.5-10.5 [facility]2022-07-07 00:36:00 Test Item Value Reference Range Interpretation Comments AGAP (test code = AGAP) 13.2 10.0-20.0 [facility]2022-07-07 00:36:00 Test Item Value Reference Range Interpretation Comments eGFR (test code = eGFR) 10 [facility] CenterAwuavvqADJFXQWBMS4266-37-79 00:36:00 Test Item Value Reference Range Interpretation Comments WBC (test code = WBC) 2.5 3.7-10.4 [place] 441032-07-07 00:36:00 Test Item Value Reference Range Interpretation Comments RBC (test code = RBC) 1.97 4.70-6.10 [place] 441032-07-07 00:36:00 Test Item Value Reference Range Interpretation Comments Hgb (test code = Hgb) 7.1 14.0-18.0 [place] 441032-07-07 00:36:00 Test Item Value Reference Range Interpretation Comments Hct (test code = Hct) 20.6 42.0-54.0 [place] 441032-07-07 00:36:00 Test Item Value Reference Range Interpretation Comments MCV (test code = MCV) 105.0 80.0-94.0 [place] 441032-07-07 00:36:00 Test Item Value Reference Range Interpretation Comments MCH (test code = MCH) 36.2 pg 27.0-31.0 [place] 441032-07-07 00:36:00 Test Item Value Reference Range Interpretation Comments MCHC (test code = MCHC) 34.5 32.0-36.0 [place] 441032-07-07 00:36:00 Test Item Value Reference Range Interpretation Comments RDW (test code = RDW) 21.1 11.5-14.5 [place] 441032-07-07 00:36:00 Test Item Value Reference Range Interpretation Comments Platelet (test code = Platelet) 136 133-450 [place] 441032-07-07 00:36:00 Test Item Value Reference Range Interpretation Comments MPV (test code = MPV) 8.7 7.4-10.4 [place] 441032-07-07 00:36:00 Test Item Value Reference Range Interpretation Comments Segs (test code = Segs) 59.5 45.0-75.0 [facility] CenterJdjnpscZIOIOWIGIV2801-96-71 00:36:00 Test Item Value Reference Range Interpretation Comments Lymphocytes (test code = Lymphocytes) 25.2 20.0-40.0 [place] 441032-07-07 00:36:00 Test Item Value Reference Range Interpretation Comments Monocytes (test code = Monocytes) 12.5 2.0-12.0 [place] 441032-07-07 00:36:00 Test Item Value Reference Range Interpretation Comments Eosinophils (test code = 2.1 See_Comment [A utomated message] The Eosinophils) system which ge nerated this result tra nsmitted reference range : <=4.0. The reference r samantha was not used to int erpret this result as normal/abnormal . [facility] CenterZgrmnphHHVLVXJTCN8880-23-58 00:36:00 Test Item Value Reference Range Interpretation Comments Basophils (test code = 0.7 See_Comment [Aut omated message] The Basophils) system which ge nerated this result tra nsmitted reference range : <=1.0. The reference r samantha was not used to int erpret this result as normal/abnormal . [facility] CenterOrobbdfMSDEWMDCUF4860-93-74 00:36:00 Test Item Value Reference Range Interpretation Comments Neutrophils # (test code = Neutrophils 1.5 1.5-8.1 #) [facility] CenterMaiamfrPBMGROSWPL7387-32-69 00:36:00 Test Item Value Reference Range Interpretation Comments Lymphocytes # (test code = Lymphocytes 0.6 1.0-5.5 #) [facility] CenterNbdelniBYTZLSLPFJ9263-92-04 00:36:00 Test Item Value Reference Range Interpretation Comments Monocytes # (test code 0.3 See_Comment [Aut omated message] The = Monocytes #) system which generated this result tra nsmitted reference range : <=0.8. The reference r samantha was not used to int erpret this result as normal/abnormal . [facility]TfkacdgPTGZPOTEAR3996-33-23 00:36:00 Test Item Value Reference Range Interpretation Comments Eosinophils # (test code 0.1 See_Comment [A utomated message] The = Eosinophils #) system whic h generated this result tra nsmitted reference range : <=0.5. The reference r samantha was not used to int erpret this result as normal/abnormal . [facility] [employer] [id number] 00:36:00 Test Item Value Reference Range Interpretation Comments ABO/Rh (test code = ABO/Rh) AB POS [facility] [employer] [facility] [id number] 00:36:00 Test Item Value Reference Range Interpretation Comments Antibody Scrn (test Negative (12/03/21 7:36 code = Antibody Scrn) PM) [facility] [employer] [id number] 00:36:00 Test Item Value Reference Range Interpretation Comments Glucose Lvl (test code = Glucose Lvl) 143 70-99 [facility] [employer] [id number] 00:36:00 Test Item Value Reference Range Interpretation Comments BUN (test code = BUN) 39 7-22 [facility] [employer] [id number] 00:36:00 Test Item Value Reference Range Interpretation Comments Creatinine Lvl (test code = Creatinine 5.46 0.50-1.40 Lvl) [facility] [employer] [id number] 00:36:00 Test Item Value Reference Range Interpretation Comments Sodium Lvl (test code = Sodium Lvl) 136 135-145 [facility] [employer] [id number] 00:36:00 Test Item Value Reference Range Interpretation Comments Potassium Lvl (test code = Potassium 4.2 3.5-5.1 Lvl) [facility] [employer] [id number] 00:36:00 Test Item Value Reference Range Interpretation Comments Chloride Lvl (test code = Chloride Lvl) 100 95-109 [facility] [employer] [id number] 00:36:00 Test Item Value Reference Range Interpretation Comments CO2 (test code = CO2) 27 24-32 [facility] [employer] [id number] 00:36:00 Test Item Value Reference Range Interpretation Comments Calcium Lvl (test code = Calcium Lvl) 8.9 8.5-10.5 [facility]2022-07-07 00:36:00 Test Item Value Reference Range Interpretation Comments AGAP (test code = AGAP) 13.2 10.0-20.0 [facility]2022-07-07 00:36:00 Test Item Value Reference Range Interpretation Comments eGFR (test code = eGFR) 10 [facility]yp[facility]wlqFEGYQSVDRA2213-47-43 00:36:00 Test Item Value Reference Range Interpretation Comments WBC (test code = WBC) 2.5 3.7-10.4 [facility] CenterWvcmccpFYEMDNZVDX6855-65-33 00:36:00 Test Item Value Reference Range Interpretation Comments RBC (test code = RBC) 1.97 4.70-6.10 [place] 441032-07-07 00:36:00 Test Item Value Reference Range Interpretation Comments Hgb (test code = Hgb) 7.1 14.0-18.0 [place] 441032-07-07 00:36:00 Test Item Value Reference Range Interpretation Comments Hct (test code = Hct) 20.6 42.0-54.0 [place] 441032-07-07 00:36:00 Test Item Value Reference Range Interpretation Comments MCV (test code = MCV) 105.0 80.0-94.0 [place] 441032-07-07 00:36:00 Test Item Value Reference Range Interpretation Comments MCH (test code = MCH) 36.2 pg 27.0-31.0 [place] 441032-07-07 00:36:00 Test Item Value Reference Range Interpretation Comments MCHC (test code = MCHC) 34.5 32.0-36.0 [facility] CenterLgntbesVNMIVCIUCR1770-52-51 00:36:00 Test Item Value Reference Range Interpretation Comments RDW (test code = RDW) 21.1 11.5-14.5 [place] 441032-07-07 00:36:00 Test Item Value Reference Range Interpretation Comments Platelet (test code = Platelet) 136 133-450 [facility] CenterKihotrcHRWADFKGCV7216-73-89 00:36:00 Test Item Value Reference Range Interpretation Comments MPV (test code = MPV) 8.7 7.4-10.4 [place] 441032-07-07 00:36:00 Test Item Value Reference Range Interpretation Comments Segs (test code = Segs) 59.5 45.0-75.0 [place] 441032-07-07 00:36:00 Test Item Value Reference Range Interpretation Comments Lymphocytes (test code = Lymphocytes) 25.2 20.0-40.0 [place] 441032-07-07 00:36:00 Test Item Value Reference Range Interpretation Comments Monocytes (test code = Monocytes) 12.5 2.0-12.0 [place] 441032-07-07 00:36:00 Test Item Value Reference Range Interpretation Comments Eosinophils (test code = 2.1 See_Comment [A utomated message] The Eosinophils) system which ge nerated this result tra nsmitted reference range : <=4.0. The reference r samantha was not used to int erpret this result as normal/abnormal . [place] 441032-07-07 00:36:00 Test Item Value Reference Range Interpretation Comments Basophils (test code = 0.7 See_Comment [Aut omated message] The Basophils) system which ge nerated this result tra nsmitted reference range : <=1.0. The reference r samantha was not used to int erpret this result as normal/abnormal . [facility] CenterLnsyhllOEHOATVWMJ1793-42-06 00:36:00 Test Item Value Reference Range Interpretation Comments Neutrophils # (test code = Neutrophils 1.5 1.5-8.1 #) [place] 441032-07-07 00:36:00 Test Item Value Reference Range Interpretation Comments Lymphocytes # (test code = Lymphocytes 0.6 1.0-5.5 #) [place] 441032-07-07 00:36:00 Test Item Value Reference Range Interpretation Comments Monocytes # (test code 0.3 See_Comment [Aut omated message] The = Monocytes #) system which generated this result tra nsmitted reference range : <=0.8. The reference r samantha was not used to int erpret this result as normal/abnormal . [facility] CenterCyecpfuHPKPIGCPBI7651-18-60 00:36:00 Test Item Value Reference Range Interpretation Comments Eosinophils # (test code 0.1 See_Comment [A utomated message] The = Eosinophils #) system whic h generated this result tra nsmitted reference range : <=0.5. The reference r samantha was not used to int erpret this result as normal/abnormal . [facility] [id number] 00:36:00 Test Item Value Reference Range Interpretation Comments ABO/Rh (test code = ABO/Rh) AB POS [facility] [id number] 00:36:00 Test Item Value Reference Range Interpretation Comments Antibody Scrn (test Negative (12/03/21 7:36 code = Antibody Scrn) PM) [facility]2022-07-07 00:36:00 Test Item Value Reference Range Interpretation Comments Glucose Lvl (test code = Glucose Lvl) 143 70-99 [facility] [id number] 00:36:00 Test Item Value Reference Range Interpretation Comments BUN (test code = BUN) 39 7-22 [facility] [id number] 00:36:00 Test Item Value Reference Range Interpretation Comments Creatinine Lvl (test code = Creatinine 5.46 0.50-1.40 Lvl) [facility] [id number] 00:36:00 Test Item Value Reference Range Interpretation Comments Sodium Lvl (test code = Sodium Lvl) 136 135-145 [facility] [id number] 00:36:00 Test Item Value Reference Range Interpretation Comments Potassium Lvl (test code = Potassium 4.2 3.5-5.1 Lvl) [facility] [id number] 00:36:00 Test Item Value Reference Range Interpretation Comments Chloride Lvl (test code = Chloride Lvl) 100 95-109 [facility] [id number] 00:36:00 Test Item Value Reference Range Interpretation Comments CO2 (test code = CO2) 27 24-32 [facility] [id number] 00:36:00 Test Item Value Reference Range Interpretation Comments Calcium Lvl (test code = Calcium Lvl) 8.9 8.5-10.5 [facility] [id number] 00:36:00 Test Item Value Reference Range Interpretation Comments AGAP (test code = AGAP) 13.2 10.0-20.0 [facility] [id number] 00:36:00 Test Item Value Reference Range Interpretation Comments eGFR (test code = eGFR) 10 [facility] CenterHjhyzynMJOTKREXDD5052-01-79 00:36:00 Test Item Value Reference Range Interpretation Comments WBC (test code = WBC) 2.5 3.7-10.4 [facility] CenterSdvoamgUTYIOOIJAK9455-37-04 00:36:00 Test Item Value Reference Range Interpretation Comments RBC (test code = RBC) 1.97 4.70-6.10 [facility] CenterDbptltjGJTNDEWFKS1556-39-17 00:36:00 Test Item Value Reference Range Interpretation Comments Hgb (test code = Hgb) 7.1 14.0-18.0 [facility] CenterUekvslqVEGAHSYVWY2256-40-17 00:36:00 Test Item Value Reference Range Interpretation Comments Hct (test code = Hct) 20.6 42.0-54.0 [facility] CenterMkljwlaFRAWWJEMSG9009-71-36 00:36:00 Test Item Value Reference Range Interpretation Comments MCV (test code = MCV) 105.0 80.0-94.0 [facility] CenterGlwveqkVPTYUZGUSY8166-11-43 00:36:00 Test Item Value Reference Range Interpretation Comments MCH (test code = MCH) 36.2 pg 27.0-31.0 [facility] CenterGmyxzfuBSGVMUQSCS8775-29-10 00:36:00 Test Item Value Reference Range Interpretation Comments MCHC (test code = MCHC) 34.5 32.0-36.0 [facility] CenterKwsltubZTNZVOIMNP3368-88-28 00:36:00 Test Item Value Reference Range Interpretation Comments RDW (test code = RDW) 21.1 11.5-14.5 [facility] CenterAcskjoyOHGTPDVNDY4204-82-66 00:36:00 Test Item Value Reference Range Interpretation Comments Platelet (test code = Platelet) 136 133-450 [facility] CenterUbqjmptDPSQSWFLKG3546-34-72 00:36:00 Test Item Value Reference Range Interpretation Comments MPV (test code = MPV) 8.7 7.4-10.4 [facility] CenterAeqiznoTNWHXVZMKT0196-62-38 00:36:00 Test Item Value Reference Range Interpretation Comments Segs (test code = Segs) 59.5 45.0-75.0 [facility] CenterHectkfnZAOMOCQQTD5029-53-34 00:36:00 Test Item Value Reference Range Interpretation Comments Lymphocytes (test code = Lymphocytes) 25.2 20.0-40.0 [facility] CenterWhhflpmUSUUUEWSBU3050-83-81 00:36:00 Test Item Value Reference Range Interpretation Comments Monocytes (test code = Monocytes) 12.5 2.0-12.0 [facility] CenterZznngpmAELTCEIAPX0368-03-01 00:36:00 Test Item Value Reference Range Interpretation Comments Eosinophils (test code = 2.1 See_Comment [A utomated message] The Eosinophils) system which ge nerated this result tra nsmitted reference range : <=4.0. The reference r samantha was not used to int erpret this result as normal/abnormal . [facility] CenterVkgojmiGXMEFDAXRW7535-30-09 00:36:00 Test Item Value Reference Range Interpretation Comments Basophils (test code = 0.7 See_Comment [Aut omated message] The Basophils) system which ge nerated this result tra nsmitted reference range : <=1.0. The reference r samantha was not used to int erpret this result as normal/abnormal . [facility] CenterFissoowVVFXOEDRUT3215-22-09 00:36:00 Test Item Value Reference Range Interpretation Comments Neutrophils # (test code = Neutrophils 1.5 1.5-8.1 #) [facility] CenterAjctnbgTUNULKYVPS1486-14-86 00:36:00 Test Item Value Reference Range Interpretation Comments Lymphocytes # (test code = Lymphocytes 0.6 1.0-5.5 #) [facility] CenterHayazbnNGXGVGVWVJ3379-24-54 00:36:00 Test Item Value Reference Range Interpretation Comments Monocytes # (test code 0.3 See_Comment [Aut omated message] The = Monocytes #) system which generated this result tra nsmitted reference range : <=0.8. The reference r samantha was not used to int erpret this result as normal/abnormal . [facility] CenterWzpwsowIKDITKPQMX6544-73-57 00:36:00 Test Item Value Reference Range Interpretation Comments Eosinophils # (test code 0.1 See_Comment [A utomated message] The = Eosinophils #) system whic h generated this result tra nsmitted reference range : <=0.5. The reference r samantha was not used to int erpret this result as normal/abnormal . [facility] [id number] 00:36:00 Test Item Value Reference Range Interpretation Comments ABO/Rh (test code = ABO/Rh) AB POS [facility] [id number] 00:36:00 Test Item Value Reference Range Interpretation Comments Antibody Scrn (test Negative (12/03/21 7:36 code = Antibody Scrn) PM) [facility]2022-07-07 00:36:00 Test Item Value Reference Range Interpretation Comments Glucose Lvl (test code = Glucose Lvl) 143 70-99 [place] 852792-07-07 00:36:00 Test Item Value Reference Range Interpretation Comments BUN (test code = BUN) 39 7-22 [place] 852792-07-07 00:36:00 Test Item Value Reference Range Interpretation Comments Creatinine Lvl (test code = Creatinine 5.46 0.50-1.40 Lvl) [place] 852792-07-07 00:36:00 Test Item Value Reference Range Interpretation Comments Sodium Lvl (test code = Sodium Lvl) 136 135-145 [place] 852792-07-07 00:36:00 Test Item Value Reference Range Interpretation Comments Potassium Lvl (test code = Potassium 4.2 3.5-5.1 Lvl) [place] 852792-07-07 00:36:00 Test Item Value Reference Range Interpretation Comments Chloride Lvl (test code = Chloride Lvl) 100 95-109 [place] 852792-07-07 00:36:00 Test Item Value Reference Range Interpretation Comments CO2 (test code = CO2) 27 24-32 [place] 852792-07-07 00:36:00 Test Item Value Reference Range Interpretation Comments Calcium Lvl (test code = Calcium Lvl) 8.9 8.5-10.5 [place] 852792-07-07 00:36:00 Test Item Value Reference Range Interpretation Comments AGAP (test code = AGAP) 13.2 10.0-20.0 [place] 852792-07-07 00:36:00 Test Item Value Reference Range Interpretation Comments eGFR (test code = eGFR) 10 [place] 441032-07-07 00:36:00 Test Item Value Reference Range Interpretation Comments WBC (test code = WBC) 2.5 3.7-10.4 [place] 441032-07-07 00:36:00 Test Item Value Reference Range Interpretation Comments RBC (test code = RBC) 1.97 4.70-6.10 [place] 441032-07-07 00:36:00 Test Item Value Reference Range Interpretation Comments Hgb (test code = Hgb) 7.1 14.0-18.0 [facility] CenterNfkfyjwKOSDQREIZU6804-18-38 00:36:00 Test Item Value Reference Range Interpretation Comments Hct (test code = Hct) 20.6 42.0-54.0 [place] 441032-07-07 00:36:00 Test Item Value Reference Range Interpretation Comments MCV (test code = MCV) 105.0 80.0-94.0 [facility] CenterEyqwtwwMHEHJKCYGF9456-53-20 00:36:00 Test Item Value Reference Range Interpretation Comments MCH (test code = MCH) 36.2 pg 27.0-31.0 [facility] CenterKcxupaaRYXISDBVLI8967-69-17 00:36:00 Test Item Value Reference Range Interpretation Comments MCHC (test code = MCHC) 34.5 32.0-36.0 [facility] CenterWbjysqxKMKQETIDAE8608-85-56 00:36:00 Test Item Value Reference Range Interpretation Comments RDW (test code = RDW) 21.1 11.5-14.5 [place] 441032-07-07 00:36:00 Test Item Value Reference Range Interpretation Comments Platelet (test code = Platelet) 136 133-450 [facility] CenterWynksfgXZRKPDNONU0962-99-60 00:36:00 Test Item Value Reference Range Interpretation Comments MPV (test code = MPV) 8.7 7.4-10.4 [facility] CenterMsowxtwNYPOOIAVEH4072-38-15 00:36:00 Test Item Value Reference Range Interpretation Comments Segs (test code = Segs) 59.5 45.0-75.0 [place] 441032-07-07 00:36:00 Test Item Value Reference Range Interpretation Comments Lymphocytes (test code = Lymphocytes) 25.2 20.0-40.0 [place] 441032-07-07 00:36:00 Test Item Value Reference Range Interpretation Comments Monocytes (test code = Monocytes) 12.5 2.0-12.0 [place] 441032-07-07 00:36:00 Test Item Value Reference Range Interpretation Comments Eosinophils (test code = 2.1 See_Comment [A utomated message] The Eosinophils) system which ge nerated this result tra nsmitted reference range : <=4.0. The reference r samantha was not used to int erpret this result as normal/abnormal . [facility] HospitalQrvtoigODGLPIJJVP1712-27-47 00:36:00 Test Item Value Reference Range Interpretation Comments Basophils (test code = 0.7 See_Comment [Aut omated message] The Basophils) system which ge nerated this result tra nsmitted reference range : <=1.0. The reference r samantha was not used to int erpret this result as normal/abnormal . [facility] HospitalJlhalctYAYPGKPLOL4605-57-91 00:36:00 Test Item Value Reference Range Interpretation Comments Neutrophils # (test code = Neutrophils 1.5 1.5-8.1 #) [facility] CenterQotffuiQCHSBPPAVU1942-35-40 00:36:00 Test Item Value Reference Range Interpretation Comments Lymphocytes # (test code = Lymphocytes 0.6 1.0-5.5 #) [facility] CenterHrberfuYVFHZPHDKY3333-42-87 00:36:00 Test Item Value Reference Range Interpretation Comments Monocytes # (test code 0.3 See_Comment [Aut omated message] The = Monocytes #) system which generated this result tra nsmitted reference range : <=0.8. The reference r samantha was not used to int erpret this result as normal/abnormal . [facility] HospitalCntqkfoFBMFGXHKUU3121-60-84 00:36:00 Test Item Value Reference Range Interpretation Comments Eosinophils # (test code 0.1 See_Comment [A utomated message] The = Eosinophils #) system whic h generated this result tra nsmitted reference range : <=0.5. The reference r samantha was not used to int erpret this result as normal/abnormal . [facility] [employer] [facility] MAYQNYJ8509-92-02 00:36:00 Test Item Value Reference Range Interpretation Comments ABO/Rh (test code = ABO/Rh) AB POS [facility]Keepsk[facility] [id number] 00:36:00 Test Item Value Reference Range Interpretation Comments Antibody Scrn (test Negative (12/03/21 7:36 code = Antibody Scrn) PM) [facility] [employer] [id number] 00:36:00 Test Item Value Reference Range Interpretation Comments Glucose Lvl (test code = Glucose Lvl) 143 70-99 [facility] [id number] 00:36:00 Test Item Value Reference Range Interpretation Comments BUN (test code = BUN) 39 7-22 [facility]At[facility] IslandILJDC3183-47-64 00:36:00 Test Item Value Reference Range Interpretation Comments Creatinine Lvl (test code = Creatinine 5.46 0.50-1.40 Lvl) [place] 852792-07-07 00:36:00 Test Item Value Reference Range Interpretation Comments Sodium Lvl (test code = Sodium Lvl) 136 135-145 [place] 852792-07-07 00:36:00 Test Item Value Reference Range Interpretation Comments Potassium Lvl (test code = Potassium 4.2 3.5-5.1 Lvl) [place] 852792-07-07 00:36:00 Test Item Value Reference Range Interpretation Comments Chloride Lvl (test code = Chloride Lvl) 100 95-109 [place] 852792-07-07 00:36:00 Test Item Value Reference Range Interpretation Comments CO2 (test code = CO2) 27 24-32 [place] 852792-07-07 00:36:00 Test Item Value Reference Range Interpretation Comments Calcium Lvl (test code = Calcium Lvl) 8.9 8.5-10.5 [place] 852792-07-07 00:36:00 Test Item Value Reference Range Interpretation Comments AGAP (test code = AGAP) 13.2 10.0-20.0 [place] 852792-07-07 00:36:00 Test Item Value Reference Range Interpretation Comments eGFR (test code = eGFR) 10 [place] 441032-07-07 00:36:00 Test Item Value Reference Range Interpretation Comments WBC (test code = WBC) 2.5 3.7-10.4 [place] 441032-07-07 00:36:00 Test Item Value Reference Range Interpretation Comments RBC (test code = RBC) 1.97 4.70-6.10 [place] 441032-07-07 00:36:00 Test Item Value Reference Range Interpretation Comments Hgb (test code = Hgb) 7.1 14.0-18.0 [place] 441032-07-07 00:36:00 Test Item Value Reference Range Interpretation Comments Hct (test code = Hct) 20.6 42.0-54.0 [place] [address]-07-07 00:36:00 Test Item Value Reference Range Interpretation Comments MCV (test code = MCV) 105.0 80.0-94.0 [facility] HospitalJypmmvcUMAVGBVOEH7606-75-66 00:36:00 Test Item Value Reference Range Interpretation Comments MCH (test code = MCH) 36.2 pg 27.0-31.0 [facility] HospitalNezhzzdPXGRUHDTUQ1324-94-51 00:36:00 Test Item Value Reference Range Interpretation Comments MCHC (test code = MCHC) 34.5 32.0-36.0 [facility] HospitalTdggkutBNZAWFPHGT9183-28-12 00:36:00 Test Item Value Reference Range Interpretation Comments RDW (test code = RDW) 21.1 11.5-14.5 [facility] [employer] OEOCJKT5221-61-77 00:36:00 Test Item Value Reference Range Interpretation Comments ABO/Rh (test code = ABO/Rh) AB POS [facility] [employer] FPGYWKG3268-86-23 00:36:00 Test Item Value Reference Range Interpretation Comments Antibody Scrn (test Negative (12/03/21 7:36 code = Antibody Scrn) PM) [facility] [employer] [id number] 00:36:00 Test Item Value Reference Range Interpretation Comments Glucose Lvl (test code = Glucose Lvl) 143 70-99 [facility] [employer] EGXUX6527-97-24 00:36:00 Test Item Value Reference Range Interpretation Comments BUN (test code = BUN) 39 7-22 [facility] [employer] OEVTV7232-38-95 00:36:00 Test Item Value Reference Range Interpretation Comments Creatinine Lvl (test code = Creatinine 5.46 0.50-1.40 Lvl) [facility] [employer] KQOQK2265-63-10 00:36:00 Test Item Value Reference Range Interpretation Comments Sodium Lvl (test code = Sodium Lvl) 136 135-145 [facility] [employer] SXZXA6622-48-89 00:36:00 Test Item Value Reference Range Interpretation Comments Potassium Lvl (test code = Potassium 4.2 3.5-5.1 Lvl) [facility] [employer] [id number] 00:36:00 Test Item Value Reference Range Interpretation Comments Chloride Lvl (test code = Chloride Lvl) 100 95-109 [facility] [employer] KZHAF7142-57-97 00:36:00 Test Item Value Reference Range Interpretation Comments CO2 (test code = CO2) 27 24-32 [facility] [employer] [id number] 00:36:00 Test Item Value Reference Range Interpretation Comments Calcium Lvl (test code = Calcium Lvl) 8.9 8.5-10.5 [facility] CenterBaqbyioCBIXZFNUNO5732-62-82 00:36:00 Test Item Value Reference Range Interpretation Comments Platelet (test code = Platelet) 136 133-450 [facility] FBPYZ4173-44-33 00:36:00 Test Item Value Reference Range Interpretation Comments AGAP (test code = AGAP) 13.2 10.0-20.0 [facility]2022-07-07 00:36:00 Test Item Value Reference Range Interpretation Comments eGFR (test code = eGFR) 10 [facility] CenterOraaculAEYYQJUFRG6672-23-85 00:36:00 Test Item Value Reference Range Interpretation Comments WBC (test code = WBC) 2.5 3.7-10.4 [facility] CenterGuoqiggEXEJZFTRAP8814-71-59 00:36:00 Test Item Value Reference Range Interpretation Comments RBC (test code = RBC) 1.97 4.70-6.10 [facility] CenterWylhakbOZMPRTGOUJ3575-55-52 00:36:00 Test Item Value Reference Range Interpretation Comments Hgb (test code = Hgb) 7.1 14.0-18.0 [place] 441032-07-07 00:36:00 Test Item Value Reference Range Interpretation Comments Hct (test code = Hct) 20.6 42.0-54.0 [facility] CenterQomxnzmGLNUTYCKZY4992-37-83 00:36:00 Test Item Value Reference Range Interpretation Comments MCV (test code = MCV) 105.0 80.0-94.0 [place] 441032-07-07 00:36:00 Test Item Value Reference Range Interpretation Comments MCH (test code = MCH) 36.2 pg 27.0-31.0 [facility] CenterOdevtyoWUKWAZCMXG7393-16-26 00:36:00 Test Item Value Reference Range Interpretation Comments MCHC (test code = MCHC) 34.5 32.0-36.0 [place] 441032-07-07 00:36:00 Test Item Value Reference Range Interpretation Comments RDW (test code = RDW) 21.1 11.5-14.5 [place] 441032-07-07 00:36:00 Test Item Value Reference Range Interpretation Comments MPV (test code = MPV) 8.7 7.4-10.4 [facility] CenterDiactusTZDCRCJSHJ2031-66-58 00:36:00 Test Item Value Reference Range Interpretation Comments Platelet (test code = Platelet) 136 133-450 [place] 441032-07-07 00:36:00 Test Item Value Reference Range Interpretation Comments MPV (test code = MPV) 8.7 7.4-10.4 [place] 441032-07-07 00:36:00 Test Item Value Reference Range Interpretation Comments Segs (test code = Segs) 59.5 45.0-75.0 [place] 441032-07-07 00:36:00 Test Item Value Reference Range Interpretation Comments Lymphocytes (test code = Lymphocytes) 25.2 20.0-40.0 [place] 441032-07-07 00:36:00 Test Item Value Reference Range Interpretation Comments Monocytes (test code = Monocytes) 12.5 2.0-12.0 [place] 441032-07-07 00:36:00 Test Item Value Reference Range Interpretation Comments Eosinophils (test code = 2.1 See_Comment [A utomated message] The Eosinophils) system which ge nerated this result tra nsmitted reference range : <=4.0. The reference r samantha was not used to int erpret this result as normal/abnormal . [place] 441032-07-07 00:36:00 Test Item Value Reference Range Interpretation Comments Basophils (test code = 0.7 See_Comment [Aut omated message] The Basophils) system which ge nerated this result tra nsmitted reference range : <=1.0. The reference r samantha was not used to int erpret this result as normal/abnormal . [facility]JqoinjnEUWZWZIJXS8724-91-03 00:36:00 Test Item Value Reference Range Interpretation Comments Neutrophils # (test code = Neutrophils 1.5 1.5-8.1 #) [place] 441032-07-07 00:36:00 Test Item Value Reference Range Interpretation Comments Lymphocytes # (test code = Lymphocytes 0.6 1.0-5.5 #) [place] 441032-07-07 00:36:00 Test Item Value Reference Range Interpretation Comments Monocytes # (test code 0.3 See_Comment [Aut omated message] The = Monocytes #) system which generated this result tra nsmitted reference range : <=0.8. The reference r samantha was not used to int erpret this result as normal/abnormal . [facility] CenterAzisufuDNLAXYAFPA9901-51-31 00:36:00 Test Item Value Reference Range Interpretation Comments Segs (test code = Segs) 59.5 45.0-75.0 [facility] CenterAbegotvAYVGBECXWG5663-76-58 00:36:00 Test Item Value Reference Range Interpretation Comments Eosinophils # (test code 0.1 See_Comment [A utomated message] The = Eosinophils #) system whic h generated this result tra nsmitted reference range : <=0.5. The reference r samantha was not used to int erpret this result as normal/abnormal . [facility] CenterPedqkonULEKBXIAFP0582-86-71 00:36:00 Test Item Value Reference Range Interpretation Comments Lymphocytes (test code = Lymphocytes) 25.2 20.0-40.0 [facility] CenterEamtyorNANBNUNCVQ4237-17-59 00:36:00 Test Item Value Reference Range Interpretation Comments Monocytes (test code = Monocytes) 12.5 2.0-12.0 [facility] CenterHzqowzbIPWSMYWTSY0260-69-61 00:36:00 Test Item Value Reference Range Interpretation Comments Eosinophils (test code = 2.1 See_Comment [A utomated message] The Eosinophils) system which ge nerated this result tra nsmitted reference range : <=4.0. The reference r samantha was not used to int erpret this result as normal/abnormal . [facility] CenterJikgugwMPDPGQKKDP2035-26-16 00:36:00 Test Item Value Reference Range Interpretation Comments Basophils (test code = 0.7 See_Comment [Aut omated message] The Basophils) system which ge nerated this result tra nsmitted reference range : <=1.0. The reference r samantha was not used to int erpret this result as normal/abnormal . [facility] CenterMljuxtqEFGELHDRTR8207-03-02 00:36:00 Test Item Value Reference Range Interpretation Comments Neutrophils # (test code = Neutrophils 1.5 1.5-8.1 #) [facility] CenterCoecvzcAWZYTRAUQB2716-62-87 00:36:00 Test Item Value Reference Range Interpretation Comments Lymphocytes # (test code = Lymphocytes 0.6 1.0-5.5 #) [facility] CenterClqrehtZHGAMRQZZM1243-54-85 00:36:00 Test Item Value Reference Range Interpretation Comments Monocytes # (test code 0.3 See_Comment [Aut omated message] The = Monocytes #) system which generated this result tra nsmitted reference range : <=0.8. The reference r samantha was not used to int erpret this result as normal/abnormal . [facility]OGR0422-21-98 00:36:00 Test Item Value Reference Range Interpretation Comments Eosinophils # (test code 0.1 See_Comment [A utomated message] The = Eosinophils #) system whic h generated this result tra nsmitted reference range : <=0.5. The reference r samantha was not used to int erpret this result as normal/abnormal . [facility] [employer] [id number] 00:36:00 Test Item Value Reference Range Interpretation Comments ABO/Rh (test code = ABO/Rh) AB POS [facility] [employer] [id number] 00:36:00 Test Item Value Reference Range Interpretation Comments Antibody Scrn (test Negative (12/03/21 7:36 code = Antibody Scrn) PM) [facility] [employer] [id number] 00:36:00 Test Item Value Reference Range Interpretation Comments Glucose Lvl (test code = Glucose Lvl) 143 70-99 [facility] [employer] [id number] 00:36:00 Test Item Value Reference Range Interpretation Comments BUN (test code = BUN) 39 7-22 [facility] [employer] [id number] 00:36:00 Test Item Value Reference Range Interpretation Comments Creatinine Lvl (test code = Creatinine 5.46 0.50-1.40 Lvl) [facility] [employer] [id number] 00:36:00 Test Item Value Reference Range Interpretation Comments Sodium Lvl (test code = Sodium Lvl) 136 135-145 [facility] [employer] UEGHJ3226-15-11 00:36:00 Test Item Value Reference Range Interpretation Comments Potassium Lvl (test code = Potassium 4.2 3.5-5.1 Lvl) [facility] [employer] [id number] 00:36:00 Test Item Value Reference Range Interpretation Comments Chloride Lvl (test code = Chloride Lvl) 100 95-109 [facility] [employer] [id number] 00:36:00 Test Item Value Reference Range Interpretation Comments CO2 (test code = CO2) 27 24-32 [facility]2022-07-07 00:36:00 Test Item Value Reference Range Interpretation Comments Calcium Lvl (test code = Calcium Lvl) 8.9 8.5-10.5 [facility]2022-07-07 00:36:00 Test Item Value Reference Range Interpretation Comments AGAP (test code = AGAP) 13.2 10.0-20.0 [facility]2022-07-07 00:36:00 Test Item Value Reference Range Interpretation Comments eGFR (test code = eGFR) 10 [facility] CenterYrdufkcVHKNXXSQOW7504-67-82 00:36:00 Test Item Value Reference Range Interpretation Comments WBC (test code = WBC) 2.5 3.7-10.4 [facility] CenterOlsliyvGXDKJIWRNF6022-70-14 00:36:00 Test Item Value Reference Range Interpretation Comments RBC (test code = RBC) 1.97 4.70-6.10 [place] 441032-07-07 00:36:00 Test Item Value Reference Range Interpretation Comments Hgb (test code = Hgb) 7.1 14.0-18.0 [place] 441032-07-07 00:36:00 Test Item Value Reference Range Interpretation Comments Hct (test code = Hct) 20.6 42.0-54.0 [place] 441032-07-07 00:36:00 Test Item Value Reference Range Interpretation Comments MCV (test code = MCV) 105.0 80.0-94.0 [place] 441032-07-07 00:36:00 Test Item Value Reference Range Interpretation Comments MCH (test code = MCH) 36.2 pg 27.0-31.0 [facility] CenterKhnpwqkXFVXXRFJQI5520-43-47 00:36:00 Test Item Value Reference Range Interpretation Comments MCHC (test code = MCHC) 34.5 32.0-36.0 [place] 441032-07-07 00:36:00 Test Item Value Reference Range Interpretation Comments RDW (test code = RDW) 21.1 11.5-14.5 [facility] CenterGpeuuzuNGJMSKDKBP3360-04-88 00:36:00 Test Item Value Reference Range Interpretation Comments Platelet (test code = Platelet) 136 133-450 [facility] CenterTegivqaXNMUJQOFNY8954-36-84 00:36:00 Test Item Value Reference Range Interpretation Comments MPV (test code = MPV) 8.7 7.4-10.4 [facility] CenterNytffnlHKXHIMABJV1158-25-93 00:36:00 Test Item Value Reference Range Interpretation Comments Segs (test code = Segs) 59.5 45.0-75.0 [facility] CenterZenwzboOHRWQQTHKP1366-81-29 00:36:00 Test Item Value Reference Range Interpretation Comments Lymphocytes (test code = Lymphocytes) 25.2 20.0-40.0 [facility] CenterJklqbgoCMFWVKTOLQ0359-31-36 00:36:00 Test Item Value Reference Range Interpretation Comments Monocytes (test code = Monocytes) 12.5 2.0-12.0 [facility] CenterNbtgnbhEMJKKOKMKT0769-17-60 00:36:00 Test Item Value Reference Range Interpretation Comments Eosinophils (test code = 2.1 See_Comment [A utomated message] The Eosinophils) system which ge nerated this result tra nsmitted reference range : <=4.0. The reference r samantha was not used to int erpret this result as normal/abnormal . [facility] CenterCmyonxjHMVURNKYFW6768-10-27 00:36:00 Test Item Value Reference Range Interpretation Comments Basophils (test code = 0.7 See_Comment [Aut omated message] The Basophils) system which ge nerated this result tra nsmitted reference range : <=1.0. The reference r samantha was not used to int erpret this result as normal/abnormal . [facility] CenterNmeijyaJDEQAWJUXM1864-08-04 00:36:00 Test Item Value Reference Range Interpretation Comments Neutrophils # (test code = Neutrophils 1.5 1.5-8.1 #) [facility] CenterTlkmvahCYFVIUPRDQ6357-75-27 00:36:00 Test Item Value Reference Range Interpretation Comments Lymphocytes # (test code = Lymphocytes 0.6 1.0-5.5 #) [facility] CenterDbgtqarNBPJHEOKRJ0135-91-49 00:36:00 Test Item Value Reference Range Interpretation Comments Monocytes # (test code 0.3 See_Comment [Aut omated message] The = Monocytes #) system which generated this result tra nsmitted reference range : <=0.8. The reference r samantha was not used to int erpret this result as normal/abnormal . [facility] CenterBkaefonJPRYDLIBGM5659-61-80 00:36:00 Test Item Value Reference Range Interpretation Comments Eosinophils # (test code 0.1 See_Comment [A utomated message] The = Eosinophils #) system whic h generated this result tra nsmitted reference range : <=0.5. The reference r samantha was not used to int erpret this result as normal/abnormal . [facility] [employer] [id number] 00:36:00 Test Item Value Reference Range Interpretation Comments ABO/Rh (test code = ABO/Rh) AB POS [facility] [employer] [id number] 00:36:00 Test Item Value Reference Range Interpretation Comments Antibody Scrn (test Negative (12/03/21 7:36 code = Antibody Scrn) PM) [facility] [employer] [id number] 00:36:00 Test Item Value Reference Range Interpretation Comments Glucose Lvl (test code = Glucose Lvl) 143 70-99 [facility] [employer] [id number] 00:36:00 Test Item Value Reference Range Interpretation Comments BUN (test code = BUN) 39 7-22 [facility] [employer] [id number] 00:36:00 Test Item Value Reference Range Interpretation Comments Creatinine Lvl (test code = Creatinine 5.46 0.50-1.40 Lvl) [facility] [employer] [id number] 00:36:00 Test Item Value Reference Range Interpretation Comments Sodium Lvl (test code = Sodium Lvl) 136 135-145 [facility] [employer] [id number] 00:36:00 Test Item Value Reference Range Interpretation Comments Potassium Lvl (test code = Potassium 4.2 3.5-5.1 Lvl) [facility] [employer]2022-07-07 00:36:00 Test Item Value Reference Range Interpretation Comments Chloride Lvl (test code = Chloride Lvl) 100 95-109 [facility] [employer] [id number] 00:36:00 Test Item Value Reference Range Interpretation Comments CO2 (test code = CO2) 27 24-32 [facility] [employer] [id number] 00:36:00 Test Item Value Reference Range Interpretation Comments Calcium Lvl (test code = Calcium Lvl) 8.9 8.5-10.5 [facility] [employer] [id number] 00:36:00 Test Item Value Reference Range Interpretation Comments AGAP (test code = AGAP) 13.2 10.0-20.0 [facility]2022-07-07 00:36:00 Test Item Value Reference Range Interpretation Comments eGFR (test code = eGFR) 10 [facility] CenterUyihbvzOEDVWIQMTL6468-14-76 00:36:00 Test Item Value Reference Range Interpretation Comments WBC (test code = WBC) 2.5 3.7-10.4 [facility] CenterOtbprrfTAXBPEURKF6958-11-91 00:36:00 Test Item Value Reference Range Interpretation Comments RBC (test code = RBC) 1.97 4.70-6.10 [facility] CenterXrzleumPHDADCKFTX6507-57-93 00:36:00 Test Item Value Reference Range Interpretation Comments Hgb (test code = Hgb) 7.1 14.0-18.0 [place] 441032-07-07 00:36:00 Test Item Value Reference Range Interpretation Comments Hct (test code = Hct) 20.6 42.0-54.0 [facility] CenterJjykzcvDDVQLMMLOW5612-98-74 00:36:00 Test Item Value Reference Range Interpretation Comments MCV (test code = MCV) 105.0 80.0-94.0 [facility] CenterQwbvigrJKCGTUCCKY3187-18-92 00:36:00 Test Item Value Reference Range Interpretation Comments MCH (test code = MCH) 36.2 pg 27.0-31.0 [facility] CenterHwbfimhBNOUPKBDRF6514-39-76 00:36:00 Test Item Value Reference Range Interpretation Comments MCHC (test code = MCHC) 34.5 32.0-36.0 [facility] CenterMetdmofTYOQUREIYC8201-72-80 00:36:00 Test Item Value Reference Range Interpretation Comments RDW (test code = RDW) 21.1 11.5-14.5 [place] 441032-07-07 00:36:00 Test Item Value Reference Range Interpretation Comments Platelet (test code = Platelet) 136 133-450 [facility] CenterNcgxhfdTRPQFJKPOS2284-09-57 00:36:00 Test Item Value Reference Range Interpretation Comments MPV (test code = MPV) 8.7 7.4-10.4 [place] 441032-07-07 00:36:00 Test Item Value Reference Range Interpretation Comments Segs (test code = Segs) 59.5 45.0-75.0 [facility] CenterTplnczlLWZKOANJTD9693-49-00 00:36:00 Test Item Value Reference Range Interpretation Comments Lymphocytes (test code = Lymphocytes) 25.2 20.0-40.0 [facility] CenterCdbxacsUIOOFSEEZU3119-51-99 00:36:00 Test Item Value Reference Range Interpretation Comments Monocytes (test code = Monocytes) 12.5 2.0-12.0 [facility] CenterPsbumlgDIOIAXVROM9347-04-25 00:36:00 Test Item Value Reference Range Interpretation Comments Eosinophils (test code = 2.1 See_Comment [A utomated message] The Eosinophils) system which ge nerated this result tra nsmitted reference range : <=4.0. The reference r samantha was not used to int erpret this result as normal/abnormal . [facility] CenterPphavilNFOKLPBXIU5042-56-67 00:36:00 Test Item Value Reference Range Interpretation Comments Basophils (test code = 0.7 See_Comment [Aut omated message] The Basophils) system which ge nerated this result tra nsmitted reference range : <=1.0. The reference r samantha was not used to int erpret this result as normal/abnormal . [facility] CenterGlfwxgnRWBCWTBDCC1748-93-19 00:36:00 Test Item Value Reference Range Interpretation Comments Neutrophils # (test code = Neutrophils 1.5 1.5-8.1 #) [facility] CenterJvapgyqMOUFQYLVYD4062-90-64 00:36:00 Test Item Value Reference Range Interpretation Comments Lymphocytes # (test code = Lymphocytes 0.6 1.0-5.5 #) [facility] CenterMpipmmxWZFBFOAWSG6065-67-46 00:36:00 Test Item Value Reference Range Interpretation Comments Monocytes # (test code 0.3 See_Comment [Aut omated message] The = Monocytes #) system which generated this result tra nsmitted reference range : <=0.8. The reference r samantha was not used to int erpret this result as normal/abnormal . [facility] CenterVnmkamjHPCVSMYPZZ1239-76-34 00:36:00 Test Item Value Reference Range Interpretation Comments Eosinophils # (test code 0.1 See_Comment [A utomated message] The = Eosinophils #) system whic h generated this result tra nsmitted reference range : <=0.5. The reference r samantha was not used to int erpret this result as normal/abnormal . [facility]2022-06-29 09:09:00 Test Item Value Reference Range Interpretation Comments Ferritin Lvl (test code = Ferritin Lvl) 1543 22275 [facility]2022-06-29 09:09:00 Test Item Value Reference Range Interpretation Comments Glucose Lvl (test code = Glucose Lvl) 288 70-99 [facility]2022-06-29 09:09:00 Test Item Value Reference Range Interpretation Comments BUN (test code = BUN) 40 7-22 [facility]2022-06-29 09:09:00 Test Item Value Reference Range Interpretation Comments Creatinine Lvl (test code = Creatinine 6.23 0.50-1.40 Lvl) [facility]2022-06-29 09:09:00 Test Item Value Reference Range Interpretation Comments Sodium Lvl (test code = Sodium Lvl) 134 135-145 [facility]2022-06-29 09:09:00 Test Item Value Reference Range Interpretation Comments Potassium Lvl (test code = Potassium 4.5 3.5-5.1 Lvl) [facility]2022-06-29 09:09:00 Test Item Value Reference Range Interpretation Comments Chloride Lvl (test code = Chloride Lvl) 96 95-109 [facility]2022-06-29 09:09:00 Test Item Value Reference Range Interpretation Comments CO2 (test code = CO2) 29 24-32 [facility]2022-06-29 09:09:00 Test Item Value Reference Range Interpretation Comments AGAP (test code = AGAP) 13.5 10.0-20.0 [facility]2022-06-29 09:09:00 Test Item Value Reference Range Interpretation Comments Calcium Lvl (test code = Calcium Lvl) 9.1 8.5-10.5 [facility]2022-06-29 09:09:00 Test Item Value Reference Range Interpretation Comments B/C Ratio (test code = B/C Ratio) 6 1 6-25 [place] 852792-06-29 09:09:00 Test Item Value Reference Range Interpretation Comments Total Protein (test code = Total 6.3 6.4-8.4 Protein) [facility]2022-06-29 09:09:00 Test Item Value Reference Range Interpretation Comments Albumin Lvl (test code = Albumin Lvl) 2.5 3.5-5.0 [place] 852792-06-29 09:09:00 Test Item Value Reference Range Interpretation Comments Globulin (test code = Globulin) 3.8 2.7-4.2 [place] 852792-06-29 09:09:00 Test Item Value Reference Range Interpretation Comments A/G Ratio (test code = A/G Ratio) 0.7 1 0.7-1.6 [facility] [id number] 09:09:00 Test Item Value Reference Range Interpretation Comments ALT (test code = ALT) 38 See_Comment [Auto mated message] The system which ge nerated this result transmit swathi reference range : <=65. The reference range was not used to interpr et this result as deny l/abnormal. [facility] FRTKG3076-28-90 09:09:00 Test Item Value Reference Range Interpretation Comments AST (test code = AST) 31 See_Comment [Auto mated message] The system which ge nerated this result transmit swathi reference range : <=37. The reference range was not used to interpr et this result as deny l/abnormal. [facility] LFOZU4077-10-11 09:09:00 Test Item Value Reference Range Interpretation Comments Alk Phos (test code = Alk Phos) 357 39-136 [facility] [id number] 09:09:00 Test Item Value Reference Range Interpretation Comments Bili Total (test code = Bili Total) 1.0 0.2-1.3 [facility] REUJY0362-52-32 09:09:00 Test Item Value Reference Range Interpretation Comments eGFR (test code = eGFR) 8 [facility] [id number] 09:09:00 Test Item Value Reference Range Interpretation Comments Magnesium Lvl (test code = Magnesium 2.0 1.8-2.4 Lvl) [facility] [id number] 09:09:00 Test Item Value Reference Range Interpretation Comments LDH (test code = LDH) 251 98-192 [facility] [id number] 09:09:00 Test Item Value Reference Range Interpretation Comments Procalcitonin Lvl (test 0.51 See_Comment [Au tomated message] code = Procalcitonin Lvl) Th e system which generated this result transmitted ref erence range: <=0.10. The reference range was not used to interpr et this result as normal/abnormal . [facility] CenterVsjqrxsLZAWGEIPKQ1227-53-87 09:09:00 Test Item Value Reference Range Interpretation Comments D-Dimer (test code = D-Dimer) 5.06 [facility] CenterAsafqbeTSFHMTUBZK4887-52-43 09:09:00 Test Item Value Reference Range Interpretation Comments WBC (test code = WBC) 4.8 3.7-10.4 [facility] CenterPbixgnbAPJLKTAAFA4162-78-64 09:09:00 Test Item Value Reference Range Interpretation Comments RBC (test code = RBC) 2.14 4.70-6.10 [facility] CenterIfmgkjcIHXHSNMPXK1487-30-65 09:09:00 Test Item Value Reference Range Interpretation Comments Hgb (test code = Hgb) 7.7 14.0-18.0 [facility] CenterJcdnvxnDGAWPPNNTY3025-67-99 09:09:00 Test Item Value Reference Range Interpretation Comments Hct (test code = Hct) 22.8 42.0-54.0 [facility] CenterJhghtkmAAQVVEMKDO3349-73-92 09:09:00 Test Item Value Reference Range Interpretation Comments MCV (test code = MCV) 106.5 80.0-94.0 [facility] CenterEihhojsSBMHXAPAQA1125-00-22 09:09:00 Test Item Value Reference Range Interpretation Comments MCH (test code = MCH) 36.1 pg 27.0-31.0 [facility] CenterZagucxjFFHNHVMUJY3851-66-68 09:09:00 Test Item Value Reference Range Interpretation Comments MCHC (test code = MCHC) 33.9 32.0-36.0 [facility] CenterRjqvbzrQPQXJBPAOQ2933-27-60 09:09:00 Test Item Value Reference Range Interpretation Comments RDW (test code = RDW) 21.8 11.5-14.5 [facility] CenterBmikstdUBCGAMAJSB7656-69-03 09:09:00 Test Item Value Reference Range Interpretation Comments Platelet (test code = Platelet) 176 133-450 [facility] CenterKildencVZUQWRIUMK7810-55-90 09:09:00 Test Item Value Reference Range Interpretation Comments MPV (test code = MPV) 8.2 7.4-10.4 [facility] CenterQmugcxuZEFOXXAYGG9916-01-65 09:09:00 Test Item Value Reference Range Interpretation Comments Segs (test code = Segs) 83.6 45.0-75.0 [place] [address]-06-29 09:09:00 Test Item Value Reference Range Interpretation Comments Lymphocytes (test code = Lymphocytes) 10.7 20.0-40.0 [facility] CenterWcetoveHINPCNCAHF1509-05-63 09:09:00 Test Item Value Reference Range Interpretation Comments Monocytes (test code = Monocytes) 4.9 2.0-12.0 [facility] CenterIiyqpigDGHTLFVYVN8968-66-32 09:09:00 Test Item Value Reference Range Interpretation Comments Eosinophils (test code = 0.4 See_Comment [A utomated message] The Eosinophils) system which ge nerated this result tra nsmitted reference range : <=4.0. The reference r samantha was not used to int erpret this result as normal/abnormal . [facility] CenterXjhlazeWAFFNFLMEC3482-71-14 09:09:00 Test Item Value Reference Range Interpretation Comments Basophils (test code = 0.4 See_Comment [Aut omated message] The Basophils) system which ge nerated this result tra nsmitted reference range : <=1.0. The reference r samantha was not used to int erpret this result as normal/abnormal . [facility] CenterPoqakvwIZSPPWGXKY3756-48-46 09:09:00 Test Item Value Reference Range Interpretation Comments Neutrophils # (test code = Neutrophils 4.0 1.5-8.1 #) [facility] CenterSdmvensAKMHXHANEI5174-63-74 09:09:00 Test Item Value Reference Range Interpretation Comments Lymphocytes # (test code = Lymphocytes 0.5 1.0-5.5 #) [facility] CenterOkzricoVVTVZMCHKY7044-20-27 09:09:00 Test Item Value Reference Range Interpretation Comments Monocytes # (test code 0.2 See_Comment [Aut omated message] The = Monocytes #) system which generated this result tra nsmitted reference range : <=0.8. The reference r samantha was not used to int erpret this result as normal/abnormal . [facility] CenterPjyhspoXNGXSEPCJV2119-36-09 09:09:00 Test Item Value Reference Range Interpretation Comments Macrocyte (test code = 1+ *ABN*(11/26/21 Macrocyte) 4:09 AM) [facility]BzffhxzQKVUMCQJZJ3998-53-23 09:09:00 Test Item Value Reference Range Interpretation Comments Interleukin 6 (test code = Interleukin 14.71 6) [place] 815502-06-29 09:09:00 Test Item Value Reference Range Interpretation Comments C-REACTIVE PROTEIN (test code = 95.9 C-REACTIVE PROTEIN) [facility]2022-06-29 09:09:00 Test Item Value Reference Range Interpretation Comments Ferritin Lvl (test code = Ferritin Lvl) 1543 22-275 [place] 852792-06-29 09:09:00 Test Item Value Reference Range Interpretation Comments Glucose Lvl (test code = Glucose Lvl) 288 70-99 [place] 852792-06-29 09:09:00 Test Item Value Reference Range Interpretation Comments BUN (test code = BUN) 40 7-22 [place] 852792-06-29 09:09:00 Test Item Value Reference Range Interpretation Comments Creatinine Lvl (test code = Creatinine 6.23 0.50-1.40 Lvl) [place] 852792-06-29 09:09:00 Test Item Value Reference Range Interpretation Comments Sodium Lvl (test code = Sodium Lvl) 134 135-145 [place] 852792-06-29 09:09:00 Test Item Value Reference Range Interpretation Comments Potassium Lvl (test code = Potassium 4.5 3.5-5.1 Lvl) [place] 852792-06-29 09:09:00 Test Item Value Reference Range Interpretation Comments Chloride Lvl (test code = Chloride Lvl) 96 95-109 [place] 852792-06-29 09:09:00 Test Item Value Reference Range Interpretation Comments CO2 (test code = CO2) 29 24-32 [place] 852792-06-29 09:09:00 Test Item Value Reference Range Interpretation Comments AGAP (test code = AGAP) 13.5 10.0-20.0 [place] 852792-06-29 09:09:00 Test Item Value Reference Range Interpretation Comments Calcium Lvl (test code = Calcium Lvl) 9.1 8.5-10.5 [place] 852792-06-29 09:09:00 Test Item Value Reference Range Interpretation Comments B/C Ratio (test code = B/C Ratio) 6 1 6-25 [place] 852792-06-29 09:09:00 Test Item Value Reference Range Interpretation Comments Total Protein (test code = Total 6.3 6.4-8.4 Protein) [place] 852792-06-29 09:09:00 Test Item Value Reference Range Interpretation Comments Albumin Lvl (test code = Albumin Lvl) 2.5 3.5-5.0 [place] 852792-06-29 09:09:00 Test Item Value Reference Range Interpretation Comments Globulin (test code = Globulin) 3.8 2.7-4.2 [place] 852792-06-29 09:09:00 Test Item Value Reference Range Interpretation Comments A/G Ratio (test code = A/G Ratio) 0.7 1 0.7-1.6 [place] [address]-06-29 09:09:00 Test Item Value Reference Range Interpretation Comments ALT (test code = ALT) 38 See_Comment [Auto mated message] The system which ge nerated this result transmit swathi reference range : <=65. The reference range was not used to interpr et this result as deny l/abnormal. [place] 852792-06-29 09:09:00 Test Item Value Reference Range Interpretation Comments AST (test code = AST) 31 See_Comment [Auto mated message] The system which ge nerated this result transmit swathi reference range : <=37. The reference range was not used to interpr et this result as deny l/abnormal. [place] 852792-06-29 09:09:00 Test Item Value Reference Range Interpretation Comments Alk Phos (test code = Alk Phos) 357 39-136 [place] 852792-06-29 09:09:00 Test Item Value Reference Range Interpretation Comments Bili Total (test code = Bili Total) 1.0 0.2-1.3 [place] 852792-06-29 09:09:00 Test Item Value Reference Range Interpretation Comments eGFR (test code = eGFR) 8 [place] 852792-06-29 09:09:00 Test Item Value Reference Range Interpretation Comments Magnesium Lvl (test code = Magnesium 2.0 1.8-2.4 Lvl) [place] 852792-06-29 09:09:00 Test Item Value Reference Range Interpretation Comments LDH (test code = LDH) 251 98-192 [place] 852792-06-29 09:09:00 Test Item Value Reference Range Interpretation Comments Procalcitonin Lvl (test 0.51 See_Comment [Au tomated message] code = Procalcitonin Lvl) Th e system which generated this result transmitted ref erence range: <=0.10. The reference range was not used to interpr et this result as normal/abnormal . [facility]OPTMHP3758[facility] Test Item Value Reference Range Interpretation Comments D-Dimer (test code = D-Dimer) 5.06 [facility] CenterTvsrolmTZICRCOZVI9568-22-92 09:09:00 Test Item Value Reference Range Interpretation Comments WBC (test code = WBC) 4.8 3.7-10.4 [place] 441032-06-29 09:09:00 Test Item Value Reference Range Interpretation Comments RBC (test code = RBC) 2.14 4.70-6.10 [place] 441032-06-29 09:09:00 Test Item Value Reference Range Interpretation Comments Hgb (test code = Hgb) 7.7 14.0-18.0 [facility] CenterDsyuqwbKXMAKAMUEK2469-93-42 09:09:00 Test Item Value Reference Range Interpretation Comments Hct (test code = Hct) 22.8 42.0-54.0 [facility] CenterCxuxbjzRLWLIGUGXE3769-06-39 09:09:00 Test Item Value Reference Range Interpretation Comments MCV (test code = MCV) 106.5 80.0-94.0 [facility] CenterIgrbkxgTABSCVJDAI7601-43-25 09:09:00 Test Item Value Reference Range Interpretation Comments MCH (test code = MCH) 36.1 pg 27.0-31.0 [facility] CenterZhtxcorHRIUWSPWAR6272-79-78 09:09:00 Test Item Value Reference Range Interpretation Comments MCHC (test code = MCHC) 33.9 32.0-36.0 [facility] CenterVmvmlxrWSVIVXOEAR9715-65-05 09:09:00 Test Item Value Reference Range Interpretation Comments RDW (test code = RDW) 21.8 11.5-14.5 [facility] CenterGzeeqwyTEODBWKJRR2714-24-27 09:09:00 Test Item Value Reference Range Interpretation Comments Platelet (test code = Platelet) 176 133-450 [facility] CenterPyjgatpJJXMFCBJCY5767-17-42 09:09:00 Test Item Value Reference Range Interpretation Comments MPV (test code = MPV) 8.2 7.4-10.4 [facility] CenterKresuppQSMGMQYKSI4830-97-54 09:09:00 Test Item Value Reference Range Interpretation Comments Segs (test code = Segs) 83.6 45.0-75.0 [facility] CenterVkeyzbpVYCEYGTUQV9336-63-72 09:09:00 Test Item Value Reference Range Interpretation Comments Lymphocytes (test code = Lymphocytes) 10.7 20.0-40.0 [place] 441032-06-29 09:09:00 Test Item Value Reference Range Interpretation Comments Monocytes (test code = Monocytes) 4.9 2.0-12.0 [place] [address]-06-29 09:09:00 Test Item Value Reference Range Interpretation Comments Eosinophils (test code = 0.4 See_Comment [A utomated message] The Eosinophils) system which ge nerated this result tra nsmitted reference range : <=4.0. The reference r samantha was not used to int erpret this result as normal/abnormal . [facility] CenterAbjqzecEAWBPJFAQZ7974-30-21 09:09:00 Test Item Value Reference Range Interpretation Comments Basophils (test code = 0.4 See_Comment [Aut omated message] The Basophils) system which ge nerated this result tra nsmitted reference range : <=1.0. The reference r samantha was not used to int erpret this result as normal/abnormal . [facility] CenterUpjoiaiKGTPCGMVTG0847-40-85 09:09:00 Test Item Value Reference Range Interpretation Comments Neutrophils # (test code = Neutrophils 4.0 1.5-8.1 #) [place] 441032-06-29 09:09:00 Test Item Value Reference Range Interpretation Comments Lymphocytes # (test code = Lymphocytes 0.5 1.0-5.5 #) [place] 441032-06-29 09:09:00 Test Item Value Reference Range Interpretation Comments Monocytes # (test code 0.2 See_Comment [Aut omated message] The = Monocytes #) system which generated this result tra nsmitted reference range : <=0.8. The reference r samantha was not used to int erpret this result as normal/abnormal . [facility] CenterEusswxmREQNHAXPAD1205-18-89 09:09:00 Test Item Value Reference Range Interpretation Comments Macrocyte (test code = 1+ *ABN*(6/29/22 Macrocyte) 4:09 AM) [place] 815502-06-29 09:09:00 Test Item Value Reference Range Interpretation Comments Interleukin 6 (test code = Interleukin 14.71 6) [place] 815502-06-29 09:09:00 Test Item Value Reference Range Interpretation Comments C-REACTIVE PROTEIN (test code = 95.9 C-REACTIVE PROTEIN) [facility]2022-06-29 09:09:00 Test Item Value Reference Range Interpretation Comments Ferritin Lvl (test code = Ferritin Lvl) 1543 22-275 [place] 852792-06-29 09:09:00 Test Item Value Reference Range Interpretation Comments Glucose Lvl (test code = Glucose Lvl) 288 70-99 [place] 852792-06-29 09:09:00 Test Item Value Reference Range Interpretation Comments BUN (test code = BUN) 40 7-22 [place] 852792-06-29 09:09:00 Test Item Value Reference Range Interpretation Comments Creatinine Lvl (test code = Creatinine 6.23 0.50-1.40 Lvl) [facility]2022-06-29 09:09:00 Test Item Value Reference Range Interpretation Comments Sodium Lvl (test code = Sodium Lvl) 134 135-145 [place] 852792-06-29 09:09:00 Test Item Value Reference Range Interpretation Comments Potassium Lvl (test code = Potassium 4.5 3.5-5.1 Lvl) [place] 852792-06-29 09:09:00 Test Item Value Reference Range Interpretation Comments Chloride Lvl (test code = Chloride Lvl) 96 95-109 [place] 852792-06-29 09:09:00 Test Item Value Reference Range Interpretation Comments CO2 (test code = CO2) 29 24-32 [place] 852792-06-29 09:09:00 Test Item Value Reference Range Interpretation Comments AGAP (test code = AGAP) 13.5 10.0-20.0 [place] 852792-06-29 09:09:00 Test Item Value Reference Range Interpretation Comments Calcium Lvl (test code = Calcium Lvl) 9.1 8.5-10.5 [place] 852792-06-29 09:09:00 Test Item Value Reference Range Interpretation Comments B/C Ratio (test code = B/C Ratio) 6 1 6-25 [facility] [id number] 09:09:00 Test Item Value Reference Range Interpretation Comments Total Protein (test code = Total 6.3 6.4-8.4 Protein) [facility] DSU[facility]82[facility]59[facility]55 09:09:00 Test Item Value Reference Range Interpretation Comments Albumin Lvl (test code = Albumin Lvl) 2.5 3.5-5.0 [facility] [id number] 09:09:00 Test Item Value Reference Range Interpretation Comments Globulin (test code = Globulin) 3.8 2.7-4.2 [facility] [id number] 09:09:00 Test Item Value Reference Range Interpretation Comments A/G Ratio (test code = A/G Ratio) 0.7 1 0.7-1.6 [facility] [id number] 09:09:00 Test Item Value Reference Range Interpretation Comments ALT (test code = ALT) 38 See_Comment [Auto mated message] The system which ge nerated this result transmit swathi reference range : <=65. The reference range was not used to interpr et this result as deny l/abnormal. [facility] MOYAQ6774-45-76 09:09:00 Test Item Value Reference Range Interpretation Comments AST (test code = AST) 31 See_Comment [Auto mated message] The system which ge nerated this result transmit swathi reference range : <=37. The reference range was not used to interpr et this result as deny l/abnormal. [facility] [employer] [id number] 09:09:00 Test Item Value Reference Range Interpretation Comments Alk Phos (test code = Alk Phos) 357 39-136 [facility] LGSAZ8077-27-13 09:09:00 Test Item Value Reference Range Interpretation Comments Bili Total (test code = Bili Total) 1.0 0.2-1.3 [facility] [id number] 09:09:00 Test Item Value Reference Range Interpretation Comments eGFR (test code = eGFR) 8 [facility] [id number] 09:09:00 Test Item Value Reference Range Interpretation Comments Magnesium Lvl (test code = Magnesium 2.0 1.8-2.4 Lvl) [facility]2022-06-29 09:09:00 Test Item Value Reference Range Interpretation Comments LDH (test code = LDH) 251 98-192 [facility]2022-06-29 09:09:00 Test Item Value Reference Range Interpretation Comments Procalcitonin Lvl (test 0.51 See_Comment [Au tomated message] code = Procalcitonin Lvl) Th e system which generated this result transmitted ref erence range: <=0.10. The reference range was not used to interpr et this result as normal/abnormal . [facility] CenterIgiziyeBPZVIQDBAX3051-08-31 09:09:00 Test Item Value Reference Range Interpretation Comments D-Dimer (test code = D-Dimer) 5.06 [place] 441032-06-29 09:09:00 Test Item Value Reference Range Interpretation Comments WBC (test code = WBC) 4.8 3.7-10.4 [facility] CenterCwbmqfnAOKLKMTRHY9039-17-59 09:09:00 Test Item Value Reference Range Interpretation Comments RBC (test code = RBC) 2.14 4.70-6.10 [facility] CenterMdgqpaaOUFPUMRQSY0976-87-45 09:09:00 Test Item Value Reference Range Interpretation Comments Hgb (test code = Hgb) 7.7 14.0-18.0 [facility] CenterPxxmwciFXANYDIDJB4895-64-21 09:09:00 Test Item Value Reference Range Interpretation Comments Hct (test code = Hct) 22.8 42.0-54.0 [facility] CenterBmgaxzeGNCACVBOIN7302-12-91 09:09:00 Test Item Value Reference Range Interpretation Comments MCV (test code = MCV) 106.5 80.0-94.0 [place] 441032-06-29 09:09:00 Test Item Value Reference Range Interpretation Comments MCH (test code = MCH) 36.1 pg 27.0-31.0 [facility] CenterIymvioaXGNLSVJAUX2398-35-17 09:09:00 Test Item Value Reference Range Interpretation Comments MCHC (test code = MCHC) 33.9 32.0-36.0 [place] 441032-06-29 09:09:00 Test Item Value Reference Range Interpretation Comments RDW (test code = RDW) 21.8 11.5-14.5 [place] 441032-06-29 09:09:00 Test Item Value Reference Range Interpretation Comments Platelet (test code = Platelet) 176 133-450 [facility] CenterTgkrrgqKYOZUIGFSI9166-73-59 09:09:00 Test Item Value Reference Range Interpretation Comments MPV (test code = MPV) 8.2 7.4-10.4 [place] 441032-06-29 09:09:00 Test Item Value Reference Range Interpretation Comments Segs (test code = Segs) 83.6 45.0-75.0 [place] 441032-06-29 09:09:00 Test Item Value Reference Range Interpretation Comments Lymphocytes (test code = Lymphocytes) 10.7 20.0-40.0 [place] 441032-06-29 09:09:00 Test Item Value Reference Range Interpretation Comments Monocytes (test code = Monocytes) 4.9 2.0-12.0 [place] 441032-06-29 09:09:00 Test Item Value Reference Range Interpretation Comments Eosinophils (test code = 0.4 See_Comment [A utomated message] The Eosinophils) system which ge nerated this result tra nsmitted reference range : <=4.0. The reference r samantha was not used to int erpret this result as normal/abnormal . [facility] CenterUngqahmIRHYHWBMFY6806-68-57 09:09:00 Test Item Value Reference Range Interpretation Comments Basophils (test code = 0.4 See_Comment [Aut omated message] The Basophils) system which ge nerated this result tra nsmitted reference range : <=1.0. The reference r samantha was not used to int erpret this result as normal/abnormal . [facility] CenterTgwsbxyLMTYMLNMPG0216-82-03 09:09:00 Test Item Value Reference Range Interpretation Comments Neutrophils # (test code = Neutrophils 4.0 1.5-8.1 #) [facility] CenterSbhtooaZJNFXEGKKR6712-55-78 09:09:00 Test Item Value Reference Range Interpretation Comments Lymphocytes # (test code = Lymphocytes 0.5 1.0-5.5 #) [place] 441032-06-29 09:09:00 Test Item Value Reference Range Interpretation Comments Monocytes # (test code 0.2 See_Comment [Aut omated message] The = Monocytes #) system which generated this result tra nsmitted reference range : <=0.8. The reference r samantha was not used to int erpret this result as normal/abnormal . [facility]kruqwjY[facility]POXDLOKB9791-15-58 09:09:00 Test Item Value Reference Range Interpretation Comments Macrocyte (test code = 1+ *ABN*(11/26/21 Macrocyte) 4:09 AM) [facility] HospitalVvpsnwjGENSNDCRHS4923-60-66 09:09:00 Test Item Value Reference Range Interpretation Comments Interleukin 6 (test code = Interleukin 14.71 6) [place] 815502-06-29 09:09:00 Test Item Value Reference Range Interpretation Comments C-REACTIVE PROTEIN (test code = 95.9 C-REACTIVE PROTEIN) [facility]2022-06-29 09:09:00 Test Item Value Reference Range Interpretation Comments Ferritin Lvl (test code = Ferritin Lvl) 1543 22275 [facility]2022-06-29 09:09:00 Test Item Value Reference Range Interpretation Comments Glucose Lvl (test code = Glucose Lvl) 288 70-99 [facility]2022-06-29 09:09:00 Test Item Value Reference Range Interpretation Comments BUN (test code = BUN) 40 7-22 [facility]2022-06-29 09:09:00 Test Item Value Reference Range Interpretation Comments Creatinine Lvl (test code = Creatinine 6.23 0.50-1.40 Lvl) [facility]2022-06-29 09:09:00 Test Item Value Reference Range Interpretation Comments Sodium Lvl (test code = Sodium Lvl) 134 135-145 [facility]2022-06-29 09:09:00 Test Item Value Reference Range Interpretation Comments Potassium Lvl (test code = Potassium 4.5 3.5-5.1 Lvl) [facility]2022-06-29 09:09:00 Test Item Value Reference Range Interpretation Comments Chloride Lvl (test code = Chloride Lvl) 96 95-109 [place] 852792-06-29 09:09:00 Test Item Value Reference Range Interpretation Comments CO2 (test code = CO2) 29 24-32 [place] 852792-06-29 09:09:00 Test Item Value Reference Range Interpretation Comments AGAP (test code = AGAP) 13.5 10.0-20.0 [place] 852792-06-29 09:09:00 Test Item Value Reference Range Interpretation Comments Calcium Lvl (test code = Calcium Lvl) 9.1 8.5-10.5 [place] 852792-06-29 09:09:00 Test Item Value Reference Range Interpretation Comments B/C Ratio (test code = B/C Ratio) 6 1 6-25 [place] 852792-06-29 09:09:00 Test Item Value Reference Range Interpretation Comments Total Protein (test code = Total 6.3 6.4-8.4 Protein) [place] 852792-06-29 09:09:00 Test Item Value Reference Range Interpretation Comments Albumin Lvl (test code = Albumin Lvl) 2.5 3.5-5.0 [place] [address]-06-29 09:09:00 Test Item Value Reference Range Interpretation Comments Globulin (test code = Globulin) 3.8 2.7-4.2 [place] 852792-06-29 09:09:00 Test Item Value Reference Range Interpretation Comments A/G Ratio (test code = A/G Ratio) 0.7 1 0.7-1.6 [place] 852792-06-29 09:09:00 Test Item Value Reference Range Interpretation Comments ALT (test code = ALT) 38 See_Comment [Auto mated message] The system which ge nerated this result transmit swathi reference range : <=65. The reference range was not used to interpr et this result as deny l/abnormal. [place] 852792-06-29 09:09:00 Test Item Value Reference Range Interpretation Comments AST (test code = AST) 31 See_Comment [Auto mated message] The system which ge nerated this result transmit swathi reference range : <=37. The reference range was not used to interpr et this result as deny l/abnormal. [place] 852792-06-29 09:09:00 Test Item Value Reference Range Interpretation Comments Alk Phos (test code = Alk Phos) 357 39-136 [place] 852792-06-29 09:09:00 Test Item Value Reference Range Interpretation Comments Bili Total (test code = Bili Total) 1.0 0.2-1.3 [place] 852792-06-29 09:09:00 Test Item Value Reference Range Interpretation Comments eGFR (test code = eGFR) 8 [facility]2022-06-29 09:09:00 Test Item Value Reference Range Interpretation Comments Magnesium Lvl (test code = Magnesium 2.0 1.8-2.4 Lvl) [facility]2022-06-29 09:09:00 Test Item Value Reference Range Interpretation Comments LDH (test code = LDH) 251 98-192 [facility]2022-06-29 09:09:00 Test Item Value Reference Range Interpretation Comments Procalcitonin Lvl (test 0.51 See_Comment [Au tomated message] code = Procalcitonin Lvl) e system which generated this result transmitted ref erence range: <=0.10. The reference range was not used to interpr et this result as normal/abnormal . [facility] CenterHyvzqmyMEJHLYWUGK3347-90-10 09:09:00 Test Item Value Reference Range Interpretation Comments D-Dimer (test code = D-Dimer) 5.06 [place] 441032-06-29 09:09:00 Test Item Value Reference Range Interpretation Comments WBC (test code = WBC) 4.8 3.7-10.4 [place] 441032-06-29 09:09:00 Test Item Value Reference Range Interpretation Comments RBC (test code = RBC) 2.14 4.70-6.10 [place] 441032-06-29 09:09:00 Test Item Value Reference Range Interpretation Comments Hgb (test code = Hgb) 7.7 14.0-18.0 [place] 441032-06-29 09:09:00 Test Item Value Reference Range Interpretation Comments Hct (test code = Hct) 22.8 42.0-54.0 [place] 441032-06-29 09:09:00 Test Item Value Reference Range Interpretation Comments MCV (test code = MCV) 106.5 80.0-94.0 [place] 441032-06-29 09:09:00 Test Item Value Reference Range Interpretation Comments MCH (test code = MCH) 36.1 pg 27.0-31.0 [place] 441032-06-29 09:09:00 Test Item Value Reference Range Interpretation Comments MCHC (test code = MCHC) 33.9 32.0-36.0 [place] [address]-06-29 09:09:00 Test Item Value Reference Range Interpretation Comments RDW (test code = RDW) 21.8 11.5-14.5 [place] 441032-06-29 09:09:00 Test Item Value Reference Range Interpretation Comments Platelet (test code = Platelet) 176 133-450 [place] 441032-06-29 09:09:00 Test Item Value Reference Range Interpretation Comments MPV (test code = MPV) 8.2 7.4-10.4 [place] 441032-06-29 09:09:00 Test Item Value Reference Range Interpretation Comments Segs (test code = Segs) 83.6 45.0-75.0 [place] 441032-06-29 09:09:00 Test Item Value Reference Range Interpretation Comments Lymphocytes (test code = Lymphocytes) 10.7 20.0-40.0 [place] 441032-06-29 09:09:00 Test Item Value Reference Range Interpretation Comments Monocytes (test code = Monocytes) 4.9 2.0-12.0 [facility] CenterMlsvipiHEXOHINEEG4630-58-73 09:09:00 Test Item Value Reference Range Interpretation Comments Eosinophils (test code = 0.4 See_Comment [A utomated message] The Eosinophils) system which ge nerated this result tra nsmitted reference range : <=4.0. The reference r samantha was not used to int erpret this result as normal/abnormal . [place] 441032-06-29 09:09:00 Test Item Value Reference Range Interpretation Comments Basophils (test code = 0.4 See_Comment [Aut omated message] The Basophils) system which ge nerated this result tra nsmitted reference range : <=1.0. The reference r samantha was not used to int erpret this result as normal/abnormal . [facility] CenterPwzxjdmPUHOPPOWJW0702-21-72 09:09:00 Test Item Value Reference Range Interpretation Comments Neutrophils # (test code = Neutrophils 4.0 1.5-8.1 #) [facility] CenterMffiqwuCSZKQROSFP3786-68-81 09:09:00 Test Item Value Reference Range Interpretation Comments Lymphocytes # (test code = Lymphocytes 0.5 1.0-5.5 #) [place] 441032-06-29 09:09:00 Test Item Value Reference Range Interpretation Comments Monocytes # (test code 0.2 See_Comment [Aut omated message] The = Monocytes #) system which generated this result tra nsmitted reference range : <=0.8. The reference r samantha was not used to int erpret this result as normal/abnormal . [facility] CenterPxeejguQKMBVQRGCT4310-04-41 09:09:00 Test Item Value Reference Range Interpretation Comments Macrocyte (test code = 1+ *ABN*(11/26/21 Macrocyte) 4:09 AM) [facility]grdevlAHXHMIJCTD0921-21-53 09:09:00 Test Item Value Reference Range Interpretation Comments Interleukin 6 (test code = Interleukin 14.71 6) [place] 815502-06-29 09:09:00 Test Item Value Reference Range Interpretation Comments C-REACTIVE PROTEIN (test code = 95.9 C-REACTIVE PROTEIN) [facility]2022-06-29 09:09:00 Test Item Value Reference Range Interpretation Comments Ferritin Lvl (test code = Ferritin Lvl) 1543 22275 [facility]2022-06-29 09:09:00 Test Item Value Reference Range Interpretation Comments Glucose Lvl (test code = Glucose Lvl) 288 70-99 [facility]2022-06-29 09:09:00 Test Item Value Reference Range Interpretation Comments BUN (test code = BUN) 40 7-22 [facility]2022-06-29 09:09:00 Test Item Value Reference Range Interpretation Comments Creatinine Lvl (test code = Creatinine 6.23 0.50-1.40 Lvl) [facility]2022-06-29 09:09:00 Test Item Value Reference Range Interpretation Comments Sodium Lvl (test code = Sodium Lvl) 134 135-145 [place] 852792-06-29 09:09:00 Test Item Value Reference Range Interpretation Comments Potassium Lvl (test code = Potassium 4.5 3.5-5.1 Lvl) [place] 852792-06-29 09:09:00 Test Item Value Reference Range Interpretation Comments Chloride Lvl (test code = Chloride Lvl) 96 95-109 [place] 852792-06-29 09:09:00 Test Item Value Reference Range Interpretation Comments CO2 (test code = CO2) 29 24-32 [place] 852792-06-29 09:09:00 Test Item Value Reference Range Interpretation Comments AGAP (test code = AGAP) 13.5 10.0-20.0 [place] 852792-06-29 09:09:00 Test Item Value Reference Range Interpretation Comments Calcium Lvl (test code = Calcium Lvl) 9.1 8.5-10.5 [place] 852792-06-29 09:09:00 Test Item Value Reference Range Interpretation Comments B/C Ratio (test code = B/C Ratio) 6 1 6-25 [place] [address]-06-29 09:09:00 Test Item Value Reference Range Interpretation Comments Total Protein (test code = Total 6.3 6.4-8.4 Protein) [place] 852792-06-29 09:09:00 Test Item Value Reference Range Interpretation Comments Albumin Lvl (test code = Albumin Lvl) 2.5 3.5-5.0 [place] 852792-06-29 09:09:00 Test Item Value Reference Range Interpretation Comments Globulin (test code = Globulin) 3.8 2.7-4.2 [place] 852792-06-29 09:09:00 Test Item Value Reference Range Interpretation Comments A/G Ratio (test code = A/G Ratio) 0.7 1 0.7-1.6 [place] 852792-06-29 09:09:00 Test Item Value Reference Range Interpretation Comments ALT (test code = ALT) 38 See_Comment [Auto mated message] The system which ge nerated this result transmit swathi reference range : <=65. The reference range was not used to interpr et this result as deny l/abnormal. [place] 852792-06-29 09:09:00 Test Item Value Reference Range Interpretation Comments AST (test code = AST) 31 See_Comment [Auto mated message] The system which ge nerated this result transmit swathi reference range : <=37. The reference range was not used to interpr et this result as deny l/abnormal. [place] 852792-06-29 09:09:00 Test Item Value Reference Range Interpretation Comments Alk Phos (test code = Alk Phos) 357 39-136 [place] 852792-06-29 09:09:00 Test Item Value Reference Range Interpretation Comments Bili Total (test code = Bili Total) 1.0 0.2-1.3 [place] 852792-06-29 09:09:00 Test Item Value Reference Range Interpretation Comments eGFR (test code = eGFR) 8 [facility]2022-06-29 09:09:00 Test Item Value Reference Range Interpretation Comments Magnesium Lvl (test code = Magnesium 2.0 1.8-2.4 Lvl) [place] 852792-06-29 09:09:00 Test Item Value Reference Range Interpretation Comments LDH (test code = LDH) 251 98-192 [facility]2022-06-29 09:09:00 Test Item Value Reference Range Interpretation Comments Procalcitonin Lvl (test 0.51 See_Comment [Au tomated message] code = Procalcitonin Lvl) e system which generated this result transmitted ref erence range: <=0.10. The reference range was not used to interpr et this result as normal/abnormal . [place] 441032-06-29 09:09:00 Test Item Value Reference Range Interpretation Comments D-Dimer (test code = D-Dimer) 5.06 [place] [address]-06-29 09:09:00 Test Item Value Reference Range Interpretation Comments WBC (test code = WBC) 4.8 3.7-10.4 [place] 441032-06-29 09:09:00 Test Item Value Reference Range Interpretation Comments RBC (test code = RBC) 2.14 4.70-6.10 [place] 441032-06-29 09:09:00 Test Item Value Reference Range Interpretation Comments Hgb (test code = Hgb) 7.7 14.0-18.0 [place] [address]-06-29 09:09:00 Test Item Value Reference Range Interpretation Comments Hct (test code = Hct) 22.8 42.0-54.0 [place] [address]-06-29 09:09:00 Test Item Value Reference Range Interpretation Comments MCV (test code = MCV) 106.5 80.0-94.0 [place] [address]-06-29 09:09:00 Test Item Value Reference Range Interpretation Comments MCH (test code = MCH) 36.1 pg 27.0-31.0 [place] 441032-06-29 09:09:00 Test Item Value Reference Range Interpretation Comments MCHC (test code = MCHC) 33.9 32.0-36.0 [place] 441032-06-29 09:09:00 Test Item Value Reference Range Interpretation Comments RDW (test code = RDW) 21.8 11.5-14.5 [place] 441032-06-29 09:09:00 Test Item Value Reference Range Interpretation Comments Platelet (test code = Platelet) 176 133-450 [facility]umdqfeZVVYSZQCRN9681-37-34 09:09:00 Test Item Value Reference Range Interpretation Comments MPV (test code = MPV) 8.2 7.4-10.4 [place] 441032-06-29 09:09:00 Test Item Value Reference Range Interpretation Comments Segs (test code = Segs) 83.6 45.0-75.0 [place] 441032-06-29 09:09:00 Test Item Value Reference Range Interpretation Comments Lymphocytes (test code = Lymphocytes) 10.7 20.0-40.0 [place] 441032-06-29 09:09:00 Test Item Value Reference Range Interpretation Comments Monocytes (test code = Monocytes) 4.9 2.0-12.0 [facility] CenterUqcollyICDLBVPKMI8876-64-97 09:09:00 Test Item Value Reference Range Interpretation Comments Eosinophils (test code = 0.4 See_Comment [A utomated message] The Eosinophils) system which ge nerated this result tra nsmitted reference range : <=4.0. The reference r samantha was not used to int erpret this result as normal/abnormal . [facility] CenterDynwocrROJKFWIUBY7203-25-48 09:09:00 Test Item Value Reference Range Interpretation Comments Basophils (test code = 0.4 See_Comment [Aut omated message] The Basophils) system which ge nerated this result tra nsmitted reference range : <=1.0. The reference r samantha was not used to int erpret this result as normal/abnormal . [place] 441032-06-29 09:09:00 Test Item Value Reference Range Interpretation Comments Neutrophils # (test code = Neutrophils 4.0 1.5-8.1 #) [facility] CenterUrqazqgORZNHMIEPN3034-24-25 09:09:00 Test Item Value Reference Range Interpretation Comments Lymphocytes # (test code = Lymphocytes 0.5 1.0-5.5 #) [facility] CenterOadrgckRILRZIMUSG2594-58-53 09:09:00 Test Item Value Reference Range Interpretation Comments Monocytes # (test code 0.2 See_Comment [Aut omated message] The = Monocytes #) system which generated this result tra nsmitted reference range : <=0.8. The reference r samantha was not used to int erpret this result as normal/abnormal . [facility] CenterZmcvkgaEKMAZSERNG4662-97-13 09:09:00 Test Item Value Reference Range Interpretation Comments Macrocyte (test code = 1+ *ABN*(11/26/21 Macrocyte) 4:09 AM) [place] 815502-06-29 09:09:00 Test Item Value Reference Range Interpretation Comments Interleukin 6 (test code = Interleukin 14.71 6) [place] 815502-06-29 09:09:00 Test Item Value Reference Range Interpretation Comments C-REACTIVE PROTEIN (test code = 95.9 C-REACTIVE PROTEIN) [facility]2022-06-29 09:09:00 Test Item Value Reference Range Interpretation Comments Ferritin Lvl (test code = Ferritin Lvl) 1543 22-275 [facility]2022-06-29 09:09:00 Test Item Value Reference Range Interpretation Comments Glucose Lvl (test code = Glucose Lvl) 288 70-99 [facility]2022-06-29 09:09:00 Test Item Value Reference Range Interpretation Comments BUN (test code = BUN) 40 7-22 [place] 852792-06-29 09:09:00 Test Item Value Reference Range Interpretation Comments Creatinine Lvl (test code = Creatinine 6.23 0.50-1.40 Lvl) [place] 852792-06-29 09:09:00 Test Item Value Reference Range Interpretation Comments Sodium Lvl (test code = Sodium Lvl) 134 135-145 [facility]2022-06-29 09:09:00 Test Item Value Reference Range Interpretation Comments Potassium Lvl (test code = Potassium 4.5 3.5-5.1 Lvl) [place] 852792-06-29 09:09:00 Test Item Value Reference Range Interpretation Comments Chloride Lvl (test code = Chloride Lvl) 96 95-109 [facility]2022-06-29 09:09:00 Test Item Value Reference Range Interpretation Comments CO2 (test code = CO2) 29 24-32 [place] 852792-06-29 09:09:00 Test Item Value Reference Range Interpretation Comments AGAP (test code = AGAP) 13.5 10.0-20.0 [place] 852792-06-29 09:09:00 Test Item Value Reference Range Interpretation Comments Calcium Lvl (test code = Calcium Lvl) 9.1 8.5-10.5 [place] 852792-06-29 09:09:00 Test Item Value Reference Range Interpretation Comments B/C Ratio (test code = B/C Ratio) 6 1 6-25 [place] 852792-06-29 09:09:00 Test Item Value Reference Range Interpretation Comments Total Protein (test code = Total 6.3 6.4-8.4 Protein) [place] 852792-06-29 09:09:00 Test Item Value Reference Range Interpretation Comments Albumin Lvl (test code = Albumin Lvl) 2.5 3.5-5.0 [place] 852792-06-29 09:09:00 Test Item Value Reference Range Interpretation Comments Globulin (test code = Globulin) 3.8 2.7-4.2 [facility]2022-06-29 09:09:00 Test Item Value Reference Range Interpretation Comments A/G Ratio (test code = A/G Ratio) 0.7 1 0.7-1.6 [place] 852792-06-29 09:09:00 Test Item Value Reference Range Interpretation Comments ALT (test code = ALT) 38 See_Comment [Auto mated message] The system which ge nerated this result transmit swathi reference range : <=65. The reference range was not used to interpr et this result as deny l/abnormal. [place] 852792-06-29 09:09:00 Test Item Value Reference Range Interpretation Comments AST (test code = AST) 31 See_Comment [Auto mated message] The system which ge nerated this result transmit swathi reference range : <=37. The reference range was not used to interpr et this result as deny l/abnormal. [address]06-29 09:09:00 Test Item Value Reference Range Interpretation Comments Alk Phos (test code = Alk Phos) 357 39-136 [place] 852792-06-29 09:09:00 Test Item Value Reference Range Interpretation Comments Bili Total (test code = Bili Total) 1.0 0.2-1.3 [place] 852792-06-29 09:09:00 Test Item Value Reference Range Interpretation Comments eGFR (test code = eGFR) 8 [place] 852792-06-29 09:09:00 Test Item Value Reference Range Interpretation Comments Magnesium Lvl (test code = Magnesium 2.0 1.8-2.4 Lvl) [place] 852792-06-29 09:09:00 Test Item Value Reference Range Interpretation Comments LDH (test code = LDH) 251 98-192 [place] 852792-06-29 09:09:00 Test Item Value Reference Range Interpretation Comments Procalcitonin Lvl (test 0.51 See_Comment [Au tomated message] code = Procalcitonin Lvl) e system which generated this result transmitted ref erence range: <=0.10. The reference range was not used to interpr et this result as normal/abnormal . [facility] CenterMhooxbaLKTIDTXILS2341-55-73 09:09:00 Test Item Value Reference Range Interpretation Comments D-Dimer (test code = D-Dimer) 5.06 [place] [address]-06-29 09:09:00 Test Item Value Reference Range Interpretation Comments WBC (test code = WBC) 4.8 3.7-10.4 [place] 441032-06-29 09:09:00 Test Item Value Reference Range Interpretation Comments RBC (test code = RBC) 2.14 4.70-6.10 [place] [address]-06-29 09:09:00 Test Item Value Reference Range Interpretation Comments Hgb (test code = Hgb) 7.7 14.0-18.0 [place] [address]-06-29 09:09:00 Test Item Value Reference Range Interpretation Comments Hct (test code = Hct) 22.8 42.0-54.0 [place] [address]-06-29 09:09:00 Test Item Value Reference Range Interpretation Comments MCV (test code = MCV) 106.5 80.0-94.0 [facility] CenterOtsiveiEZCAIDJLOP5258-27-96 09:09:00 Test Item Value Reference Range Interpretation Comments MCH (test code = MCH) 36.1 pg 27.0-31.0 [facility] CenterQqxkqfyHZYPGYMBFT9237-84-14 09:09:00 Test Item Value Reference Range Interpretation Comments MCHC (test code = MCHC) 33.9 32.0-36.0 [facility] CenterHfzktqxMHQFHWSBUW2232-92-23 09:09:00 Test Item Value Reference Range Interpretation Comments RDW (test code = RDW) 21.8 11.5-14.5 [facility] CenterIyjqlglQOVMUKPECI5478-46-09 09:09:00 Test Item Value Reference Range Interpretation Comments Platelet (test code = Platelet) 176 133-450 [facility] CenterMonmmqnFNCRIICPAH5899-64-50 09:09:00 Test Item Value Reference Range Interpretation Comments MPV (test code = MPV) 8.2 7.4-10.4 [facility] CenterDmjxcsqTETZSSAVHR9668-20-42 09:09:00 Test Item Value Reference Range Interpretation Comments Segs (test code = Segs) 83.6 45.0-75.0 [facility] CenterHpjvhstXXCDORGKAN9902-29-90 09:09:00 Test Item Value Reference Range Interpretation Comments Lymphocytes (test code = Lymphocytes) 10.7 20.0-40.0 [facility] CenterLcczejwJXVAKSXCTL9270-67-96 09:09:00 Test Item Value Reference Range Interpretation Comments Monocytes (test code = Monocytes) 4.9 2.0-12.0 [facility] CenterDzvkgjaXDMGVRMWEH7914-91-25 09:09:00 Test Item Value Reference Range Interpretation Comments Eosinophils (test code = 0.4 See_Comment [A utomated message] The Eosinophils) system which ge nerated this result tra nsmitted reference range : <=4.0. The reference r samantha was not used to int erpret this result as normal/abnormal . [facility] CenterQyonphtRKSJCRSAOD5437-73-79 09:09:00 Test Item Value Reference Range Interpretation Comments Basophils (test code = 0.4 See_Comment [Aut omated message] The Basophils) system which ge nerated this result tra nsmitted reference range : <=1.0. The reference r samantha was not used to int erpret this result as normal/abnormal . [facility] CenterBdxclrtWMONXSBIDV7892-88-18 09:09:00 Test Item Value Reference Range Interpretation Comments Neutrophils # (test code = Neutrophils 4.0 1.5-8.1 #) [place] 441032-06-29 09:09:00 Test Item Value Reference Range Interpretation Comments Lymphocytes # (test code = Lymphocytes 0.5 1.0-5.5 #) [facility] CenterPehwwhvMLVAOOIKFY4241-59-65 09:09:00 Test Item Value Reference Range Interpretation Comments Monocytes # (test code 0.2 See_Comment [Aut omated message] The = Monocytes #) system which generated this result tra nsmitted reference range : <=0.8. The reference r samantha was not used to int erpret this result as normal/abnormal . [place] 441032-06-29 09:09:00 Test Item Value Reference Range Interpretation Comments Macrocyte (test code = 1+ *ABN*(11/26/21 Macrocyte) 4:09 AM) [place] 815502-06-29 09:09:00 Test Item Value Reference Range Interpretation Comments Interleukin 6 (test code = Interleukin 14.71 6) [place] 815502-06-29 09:09:00 Test Item Value Reference Range Interpretation Comments C-REACTIVE PROTEIN (test code = 95.9 C-REACTIVE PROTEIN) [facility]2022-06-29 09:09:00 Test Item Value Reference Range Interpretation Comments Ferritin Lvl (test code = Ferritin Lvl) 1543 22-275 [facility]2022-06-29 09:09:00 Test Item Value Reference Range Interpretation Comments Glucose Lvl (test code = Glucose Lvl) 288 70-99 [facility]2022-06-29 09:09:00 Test Item Value Reference Range Interpretation Comments BUN (test code = BUN) 40 7-22 [place] 852792-06-29 09:09:00 Test Item Value Reference Range Interpretation Comments Creatinine Lvl (test code = Creatinine 6.23 0.50-1.40 Lvl) [place] 852792-06-29 09:09:00 Test Item Value Reference Range Interpretation Comments Sodium Lvl (test code = Sodium Lvl) 134 135-145 [facility]2022-06-29 09:09:00 Test Item Value Reference Range Interpretation Comments Potassium Lvl (test code = Potassium 4.5 3.5-5.1 Lvl) [place] 852792-06-29 09:09:00 Test Item Value Reference Range Interpretation Comments Chloride Lvl (test code = Chloride Lvl) 96 95-109 [place] 852792-06-29 09:09:00 Test Item Value Reference Range Interpretation Comments CO2 (test code = CO2) 29 24-32 [place] 852792-06-29 09:09:00 Test Item Value Reference Range Interpretation Comments AGAP (test code = AGAP) 13.5 10.0-20.0 [place] 852792-06-29 09:09:00 Test Item Value Reference Range Interpretation Comments Calcium Lvl (test code = Calcium Lvl) 9.1 8.5-10.5 [place] 852792-06-29 09:09:00 Test Item Value Reference Range Interpretation Comments B/C Ratio (test code = B/C Ratio) 6 1 6-25 [place] 852792-06-29 09:09:00 Test Item Value Reference Range Interpretation Comments Total Protein (test code = Total 6.3 6.4-8.4 Protein) [place] 852792-06-29 09:09:00 Test Item Value Reference Range Interpretation Comments Albumin Lvl (test code = Albumin Lvl) 2.5 3.5-5.0 [place] 852792-06-29 09:09:00 Test Item Value Reference Range Interpretation Comments Globulin (test code = Globulin) 3.8 2.7-4.2 [place] 852792-06-29 09:09:00 Test Item Value Reference Range Interpretation Comments A/G Ratio (test code = A/G Ratio) 0.7 1 0.7-1.6 [place] 852792-06-29 09:09:00 Test Item Value Reference Range Interpretation Comments ALT (test code = ALT) 38 See_Comment [Auto mated message] The system which ge nerated this result transmit swathi reference range : <=65. The reference range was not used to interpr et this result as deny l/abnormal. [place] 852792-06-29 09:09:00 Test Item Value Reference Range Interpretation Comments AST (test code = AST) 31 See_Comment [Auto mated message] The system which ge nerated this result transmit sawthi reference range : <=37. The reference range was not used to interpr et this result as deny l/abnormal. [facility] [id number] 09:09:00 Test Item Value Reference Range Interpretation Comments Alk Phos (test code = Alk Phos) 357 39-136 [facility] [id number] 09:09:00 Test Item Value Reference Range Interpretation Comments Bili Total (test code = Bili Total) 1.0 0.2-1.3 [place] 852792-06-29 09:09:00 Test Item Value Reference Range Interpretation Comments eGFR (test code = eGFR) 8 [place] 852792-06-29 09:09:00 Test Item Value Reference Range Interpretation Comments Magnesium Lvl (test code = Magnesium 2.0 1.8-2.4 Lvl) [place] 852792-06-29 09:09:00 Test Item Value Reference Range Interpretation Comments LDH (test code = LDH) 251 98-192 [facility] [id number] 09:09:00 Test Item Value Reference Range Interpretation Comments Procalcitonin Lvl (test 0.51 See_Comment [Au tomated message] code = Procalcitonin Lvl) Th e system which generated this result transmitted ref erence range: <=0.10. The reference range was not used to interpr et this result as normal/abnormal . [facility] HospitalHkjutfaOHEFQTHBIM3763-09-38 09:09:00 Test Item Value Reference Range Interpretation Comments D-Dimer (test code = D-Dimer) 5.06 [place] [address]-06-29 09:09:00 Test Item Value Reference Range Interpretation Comments WBC (test code = WBC) 4.8 3.7-10.4 [place] [address]-06-29 09:09:00 Test Item Value Reference Range Interpretation Comments RBC (test code = RBC) 2.14 4.70-6.10 [place] [address]-06-29 09:09:00 Test Item Value Reference Range Interpretation Comments Hgb (test code = Hgb) 7.7 14.0-18.0 [place] 441032-06-29 09:09:00 Test Item Value Reference Range Interpretation Comments Hct (test code = Hct) 22.8 42.0-54.0 [place] 441032-06-29 09:09:00 Test Item Value Reference Range Interpretation Comments MCV (test code = MCV) 106.5 80.0-94.0 [place] 441032-06-29 09:09:00 Test Item Value Reference Range Interpretation Comments MCH (test code = MCH) 36.1 pg 27.0-31.0 [facility] CenterZxawvtiJIKQEWJUCD7248-38-95 09:09:00 Test Item Value Reference Range Interpretation Comments MCHC (test code = MCHC) 33.9 32.0-36.0 [place] 441032-06-29 09:09:00 Test Item Value Reference Range Interpretation Comments RDW (test code = RDW) 21.8 11.5-14.5 [place] 441032-06-29 09:09:00 Test Item Value Reference Range Interpretation Comments Platelet (test code = Platelet) 176 133-450 [facility] CenterZkfuqejEHSTXVMZGH6194-16-07 09:09:00 Test Item Value Reference Range Interpretation Comments MPV (test code = MPV) 8.2 7.4-10.4 [facility] CenterIdmrnuzRKGIANOAKT6166-64-61 09:09:00 Test Item Value Reference Range Interpretation Comments Segs (test code = Segs) 83.6 45.0-75.0 [facility] CenterWmuryvoAIAAPSUYDD6208-14-77 09:09:00 Test Item Value Reference Range Interpretation Comments Lymphocytes (test code = Lymphocytes) 10.7 20.0-40.0 [place] 441032-06-29 09:09:00 Test Item Value Reference Range Interpretation Comments Monocytes (test code = Monocytes) 4.9 2.0-12.0 [place] 441032-06-29 09:09:00 Test Item Value Reference Range Interpretation Comments Eosinophils (test code = 0.4 See_Comment [A utomated message] The Eosinophils) system which ge nerated this result tra nsmitted reference range : <=4.0. The reference r samantha was not used to int erpret this result as normal/abnormal . [facility] CenterHqfcrtpLJESDQJQID0993-32-57 09:09:00 Test Item Value Reference Range Interpretation Comments Basophils (test code = 0.4 See_Comment [Aut omated message] The Basophils) system which ge nerated this result tra nsmitted reference range : <=1.0. The reference r samantha was not used to int erpret this result as normal/abnormal . [facility] CenterWgjwyvtUZWMMHJQVR3661-63-97 09:09:00 Test Item Value Reference Range Interpretation Comments Neutrophils # (test code = Neutrophils 4.0 1.5-8.1 #) [facility] CenterHbalprtHCWCIGNLQT8132-35-10 09:09:00 Test Item Value Reference Range Interpretation Comments Lymphocytes # (test code = Lymphocytes 0.5 1.0-5.5 #) [facility] CenterLtsbpfyYVYSLXFCSU9049-62-95 09:09:00 Test Item Value Reference Range Interpretation Comments Monocytes # (test code 0.2 See_Comment [Aut omated message] The = Monocytes #) system which generated this result tra nsmitted reference range : <=0.8. The reference r samantha was not used to int erpret this result as normal/abnormal . [facility] CenterUklbxvyPWPODNJBEX6264-57-50 09:09:00 Test Item Value Reference Range Interpretation Comments Macrocyte (test code = 1+ *ABN*(11/26/21 Macrocyte) 4:09 AM) [facility] HospitalDwawhbnFSENBJXPSD9119-61-38 09:09:00 Test Item Value Reference Range Interpretation Comments Interleukin 6 (test code = Interleukin 14.71 6) [facility]awjQNSILNVTAA5142-56-09 09:09:00 Test Item Value Reference Range Interpretation Comments C-REACTIVE PROTEIN (test code = 95.9 C-REACTIVE PROTEIN) [facility]2022-06-29 09:09:00 Test Item Value Reference Range Interpretation Comments Ferritin Lvl (test code = Ferritin Lvl) 1543 22275 [facility]2022-06-29 09:09:00 Test Item Value Reference Range Interpretation Comments Glucose Lvl (test code = Glucose Lvl) 288 70-99 [facility]2022-06-29 09:09:00 Test Item Value Reference Range Interpretation Comments BUN (test code = BUN) 40 7-22 [facility]2022-06-29 09:09:00 Test Item Value Reference Range Interpretation Comments Creatinine Lvl (test code = Creatinine 6.23 0.50-1.40 Lvl) [place] 852792-06-29 09:09:00 Test Item Value Reference Range Interpretation Comments Sodium Lvl (test code = Sodium Lvl) 134 135-145 [place] 852792-06-29 09:09:00 Test Item Value Reference Range Interpretation Comments Potassium Lvl (test code = Potassium 4.5 3.5-5.1 Lvl) [place] 852792-06-29 09:09:00 Test Item Value Reference Range Interpretation Comments Chloride Lvl (test code = Chloride Lvl) 96 95-109 [place] 852792-06-29 09:09:00 Test Item Value Reference Range Interpretation Comments CO2 (test code = CO2) 29 24-32 [place] 852792-06-29 09:09:00 Test Item Value Reference Range Interpretation Comments AGAP (test code = AGAP) 13.5 10.0-20.0 [place] 852792-06-29 09:09:00 Test Item Value Reference Range Interpretation Comments Calcium Lvl (test code = Calcium Lvl) 9.1 8.5-10.5 [place] 852792-06-29 09:09:00 Test Item Value Reference Range Interpretation Comments B/C Ratio (test code = B/C Ratio) 6 1 6-25 [place] 852792-06-29 09:09:00 Test Item Value Reference Range Interpretation Comments Total Protein (test code = Total 6.3 6.4-8.4 Protein) [place] 852792-06-29 09:09:00 Test Item Value Reference Range Interpretation Comments Albumin Lvl (test code = Albumin Lvl) 2.5 3.5-5.0 [place] 852792-06-29 09:09:00 Test Item Value Reference Range Interpretation Comments Globulin (test code = Globulin) 3.8 2.7-4.2 [place] 852792-06-29 09:09:00 Test Item Value Reference Range Interpretation Comments A/G Ratio (test code = A/G Ratio) 0.7 1 0.7-1.6 [place] 852792-06-29 09:09:00 Test Item Value Reference Range Interpretation Comments ALT (test code = ALT) 38 See_Comment [Auto mated message] The system which ge nerated this result transmit swathi reference range : <=65. The reference range was not used to interpr et this result as deny l/abnormal. [facility] [id number] 09:09:00 Test Item Value Reference Range Interpretation Comments AST (test code = AST) 31 See_Comment [Auto mated message] The system which ge nerated this result transmit swathi reference range : <=37. The reference range was not used to interpr et this result as deny l/abnormal. [place] 852792-06-29 09:09:00 Test Item Value Reference Range Interpretation Comments Alk Phos (test code = Alk Phos) 357 39-136 [facility]Chip[facility] [id number] 09:09:00 Test Item Value Reference Range Interpretation Comments Bili Total (test code = Bili Total) 1.0 0.2-1.3 [place] 852792-06-29 09:09:00 Test Item Value Reference Range Interpretation Comments eGFR (test code = eGFR) 8 [facility] [id number] 09:09:00 Test Item Value Reference Range Interpretation Comments Magnesium Lvl (test code = Magnesium 2.0 1.8-2.4 Lvl) [place] [id number] 09:09:00 Test Item Value Reference Range Interpretation Comments LDH (test code = LDH) 251 98-192 [facility] 09:09:00 Test Item Value Reference Range Interpretation Comments Procalcitonin Lvl (test 0.51 See_Comment [Au tomated message] code = Procalcitonin Lvl) Th e system which generated this result transmitted ref erence range: <=0.10. The reference range was not used to interpr et this result as normal/abnormal . [facility]vxqssCHZUOKFAJN2208-45-36 09:09:00 Test Item Value Reference Range Interpretation Comments D-Dimer (test code = D-Dimer) 5.06 [place] [address]-06-29 09:09:00 Test Item Value Reference Range Interpretation Comments WBC (test code = WBC) 4.8 3.7-10.4 [place] 441032-06-29 09:09:00 Test Item Value Reference Range Interpretation Comments RBC (test code = RBC) 2.14 4.70-6.10 [place] [address]-06-29 09:09:00 Test Item Value Reference Range Interpretation Comments Hgb (test code = Hgb) 7.7 14.0-18.0 [place] 441032-06-29 09:09:00 Test Item Value Reference Range Interpretation Comments Hct (test code = Hct) 22.8 42.0-54.0 [place] 441032-06-29 09:09:00 Test Item Value Reference Range Interpretation Comments MCV (test code = MCV) 106.5 80.0-94.0 [place] 441032-06-29 09:09:00 Test Item Value Reference Range Interpretation Comments MCH (test code = MCH) 36.1 pg 27.0-31.0 [place] 441032-06-29 09:09:00 Test Item Value Reference Range Interpretation Comments MCHC (test code = MCHC) 33.9 32.0-36.0 [place] 441032-06-29 09:09:00 Test Item Value Reference Range Interpretation Comments RDW (test code = RDW) 21.8 11.5-14.5 [place] 441032-06-29 09:09:00 Test Item Value Reference Range Interpretation Comments Platelet (test code = Platelet) 176 133-450 [place] 441032-06-29 09:09:00 Test Item Value Reference Range Interpretation Comments MPV (test code = MPV) 8.2 7.4-10.4 [place] 441032-06-29 09:09:00 Test Item Value Reference Range Interpretation Comments Segs (test code = Segs) 83.6 45.0-75.0 [place] 441032-06-29 09:09:00 Test Item Value Reference Range Interpretation Comments Lymphocytes (test code = Lymphocytes) 10.7 20.0-40.0 [place] [address]-06-29 09:09:00 Test Item Value Reference Range Interpretation Comments Monocytes (test code = Monocytes) 4.9 2.0-12.0 [place] [address]-06-29 09:09:00 Test Item Value Reference Range Interpretation Comments Eosinophils (test code = 0.4 See_Comment [A utomated message] The Eosinophils) system which ge nerated this result tra nsmitted reference range : <=4.0. The reference r samantha was not used to int erpret this result as normal/abnormal . [facility]YicfgytJTSAMGIHLK1171-89-07 09:09:00 Test Item Value Reference Range Interpretation Comments Basophils (test code = 0.4 See_Comment [Aut omated message] The Basophils) system which ge nerated this result tra nsmitted reference range : <=1.0. The reference r samantha was not used to int erpret this result as normal/abnormal . [facility] CenterMcdcsssCPJXEIPLHQ7487-96-46 09:09:00 Test Item Value Reference Range Interpretation Comments Neutrophils # (test code = Neutrophils 4.0 1.5-8.1 #) [facility] CenterFxwezxfYSGHSWUHMN5484-82-22 09:09:00 Test Item Value Reference Range Interpretation Comments Lymphocytes # (test code = Lymphocytes 0.5 1.0-5.5 #) [facility] CenterTwmadauORALCDWZAI4570-05-84 09:09:00 Test Item Value Reference Range Interpretation Comments Monocytes # (test code 0.2 See_Comment [Aut omated message] The = Monocytes #) system which generated this result tra nsmitted reference range : <=0.8. The reference r samantha was not used to int erpret this result as normal/abnormal . [facility] CenterIgfpblqKYFEAYPEZZ8527-83-38 09:09:00 Test Item Value Reference Range Interpretation Comments Macrocyte (test code = 1+ *ABN*(11/26/21 Macrocyte) 4:09 AM) [facility]QknhihjHIIGUCHBOB1153-34-18 09:09:00 Test Item Value Reference Range Interpretation Comments Interleukin 6 (test code = Interleukin 14.71 6) [place] 815502-06-29 09:09:00 Test Item Value Reference Range Interpretation Comments C-REACTIVE PROTEIN (test code = 95.9 C-REACTIVE PROTEIN) [facility] CenterYqlhisuNJXZVAZJJR0600-09-60 12:33:00 Test Item Value Reference Range Interpretation Comments Segs (test code = Segs) 84.8 45.0-75.0 [facility] CenterYgintckOVJASDCKAO1765-88-50 12:33:00 Test Item Value Reference Range Interpretation Comments Lymphocytes (test code = Lymphocytes) 11.6 20.0-40.0 [facility] CenterCrkofteDAQJUSIQYK7462-53-51 12:33:00 Test Item Value Reference Range Interpretation Comments Monocytes (test code = Monocytes) 2.8 2.0-12.0 [place] 441032-06-28 12:33:00 Test Item Value Reference Range Interpretation Comments Eosinophils (test code = 0.4 See_Comment [A utomated message] The Eosinophils) system which ge nerated this result tra nsmitted reference range : <=4.0. The reference r samantha was not used to int erpret this result as normal/abnormal . [facility] CenterUgxhvpfQIYQCPHWVG9595-95-79 12:33:00 Test Item Value Reference Range Interpretation Comments Basophils (test code = 0.4 See_Comment [Aut omated message] The Basophils) system which ge nerated this result tra nsmitted reference range : <=1.0. The reference r samantha was not used to int erpret this result as normal/abnormal . [facility] CenterAernxslLBURPAKMLL0696-45-59 12:33:00 Test Item Value Reference Range Interpretation Comments Neutrophils # (test code = Neutrophils 4.4 1.5-8.1 #) [place] 441032-06-28 12:33:00 Test Item Value Reference Range Interpretation Comments Lymphocytes # (test code = Lymphocytes 0.6 1.0-5.5 #) [place] 441032-06-28 12:33:00 Test Item Value Reference Range Interpretation Comments Monocytes # (test code 0.1 See_Comment [Aut omated message] The = Monocytes #) system which generated this result tra nsmitted reference range : <=0.8. The reference r samantha was not used to int erpret this result as normal/abnormal . [facility] CenterIktaqfyVZWCJSHPZJ7209-16-94 12:33:00 Test Item Value Reference Range Interpretation Comments Macrocyte (test code = 1+ *ABN*(11/25/21 Macrocyte) 7:33 AM) [place] 441032-06-28 12:33:00 Test Item Value Reference Range Interpretation Comments WBC (test code = WBC) 5.2 3.7-10.4 [place] 441032-06-28 12:33:00 Test Item Value Reference Range Interpretation Comments RBC (test code = RBC) 2.18 4.70-6.10 [place] 441032-06-28 12:33:00 Test Item Value Reference Range Interpretation Comments Hgb (test code = Hgb) 7.8 14.0-18.0 [facility] CenterNltsdugIKULTATRIS4122-21-44 12:33:00 Test Item Value Reference Range Interpretation Comments Hct (test code = Hct) 23.6 42.0-54.0 [facility] CenterRygovznKKQZELLAJH4374-85-51 12:33:00 Test Item Value Reference Range Interpretation Comments MCV (test code = MCV) 108.4 80.0-94.0 [place] 441032-06-28 12:33:00 Test Item Value Reference Range Interpretation Comments MCH (test code = MCH) 35.9 pg 27.0-31.0 [place] 441032-06-28 12:33:00 Test Item Value Reference Range Interpretation Comments MCHC (test code = MCHC) 33.1 32.0-36.0 [facility] CenterUlpyzniNQJKKGSFSS3323-50-37 12:33:00 Test Item Value Reference Range Interpretation Comments RDW (test code = RDW) 21.5 11.5-14.5 [facility] CenterJououbzRAKIFYVLVM8347-56-16 12:33:00 Test Item Value Reference Range Interpretation Comments Platelet (test code = Platelet) 167 133-450 [facility] CenterQyzxpduWCNCIJDXRV2042-23-55 12:33:00 Test Item Value Reference Range Interpretation Comments MPV (test code = MPV) 7.6 7.4-10.4 [facility] CenterGphhxvjUJHJBQYZDL2752-40-00 12:33:00 Test Item Value Reference Range Interpretation Comments Segs (test code = Segs) 84.8 45.0-75.0 [facility] CenterAzecjktAKZWBIJSPE1840-67-14 12:33:00 Test Item Value Reference Range Interpretation Comments Lymphocytes (test code = Lymphocytes) 11.6 20.0-40.0 [place] 441032-06-28 12:33:00 Test Item Value Reference Range Interpretation Comments Monocytes (test code = Monocytes) 2.8 2.0-12.0 [place] 441032-06-28 12:33:00 Test Item Value Reference Range Interpretation Comments Eosinophils (test code = 0.4 See_Comment [A utomated message] The Eosinophils) system which ge nerated this result tra nsmitted reference range : <=4.0. The reference r samantha was not used to int erpret this result as normal/abnormal . [place] 441032-06-28 12:33:00 Test Item Value Reference Range Interpretation Comments Basophils (test code = 0.4 See_Comment [Aut omated message] The Basophils) system which ge nerated this result tra nsmitted reference range : <=1.0. The reference r samantha was not used to int erpret this result as normal/abnormal . [facility] CenterZvdbmblQMLJAQUHFU8756-14-15 12:33:00 Test Item Value Reference Range Interpretation Comments Neutrophils # (test code = Neutrophils 4.4 1.5-8.1 #) [facility] CenterWieeajuFOFEIEKFQU4498-79-01 12:33:00 Test Item Value Reference Range Interpretation Comments Lymphocytes # (test code = Lymphocytes 0.6 1.0-5.5 #) [facility] CenterOswdmnwDYKTBDKWIS6576-18-91 12:33:00 Test Item Value Reference Range Interpretation Comments Monocytes # (test code 0.1 See_Comment [Aut omated message] The = Monocytes #) system which generated this result tra nsmitted reference range : <=0.8. The reference r samantha was not used to int erpret this result as normal/abnormal . [facility] CenterLkvkzwkHYNFIREGAR4309-05-75 12:33:00 Test Item Value Reference Range Interpretation Comments Macrocyte (test code = 1+ *ABN*(11/25/21 Macrocyte) 7:33 AM) [place] 441032-06-28 12:33:00 Test Item Value Reference Range Interpretation Comments WBC (test code = WBC) 5.2 3.7-10.4 [place] 441032-06-28 12:33:00 Test Item Value Reference Range Interpretation Comments RBC (test code = RBC) 2.18 4.70-6.10 [place] 441032-06-28 12:33:00 Test Item Value Reference Range Interpretation Comments Hgb (test code = Hgb) 7.8 14.0-18.0 [place] [address]-06-28 12:33:00 Test Item Value Reference Range Interpretation Comments Hct (test code = Hct) 23.6 42.0-54.0 [place] 441032-06-28 12:33:00 Test Item Value Reference Range Interpretation Comments MCV (test code = MCV) 108.4 80.0-94.0 [place] 441032-06-28 12:33:00 Test Item Value Reference Range Interpretation Comments MCH (test code = MCH) 35.9 pg 27.0-31.0 [facility] CenterWeybngmTJLQMDTMWW7548-78-55 12:33:00 Test Item Value Reference Range Interpretation Comments MCHC (test code = MCHC) 33.1 32.0-36.0 [facility] CenterRacvkfiJEHQMZYJGN6012-45-51 12:33:00 Test Item Value Reference Range Interpretation Comments RDW (test code = RDW) 21.5 11.5-14.5 [facility] CenterRljgajhZGXQNWBRTZ7161-70-51 12:33:00 Test Item Value Reference Range Interpretation Comments Platelet (test code = Platelet) 167 133-450 [facility] CenterUcpmouxABMOZTFZHR0545-70-61 12:33:00 Test Item Value Reference Range Interpretation Comments MPV (test code = MPV) 7.6 7.4-10.4 [place] 441032-06-28 12:33:00 Test Item Value Reference Range Interpretation Comments Segs (test code = Segs) 84.8 45.0-75.0 [facility] CenterYfkrwhyKJLAIIKAYZ2606-80-89 12:33:00 Test Item Value Reference Range Interpretation Comments Lymphocytes (test code = Lymphocytes) 11.6 20.0-40.0 [facility] CenterNwsqgbgZPIHDKTHVA6308-72-42 12:33:00 Test Item Value Reference Range Interpretation Comments Monocytes (test code = Monocytes) 2.8 2.0-12.0 [place] 441032-06-28 12:33:00 Test Item Value Reference Range Interpretation Comments Eosinophils (test code = 0.4 See_Comment [A utomated message] The Eosinophils) system which ge nerated this result tra nsmitted reference range : <=4.0. The reference r samantha was not used to int erpret this result as normal/abnormal . [facility] CenterQykbjijOKFRLDIUCT9053-15-66 12:33:00 Test Item Value Reference Range Interpretation Comments Basophils (test code = 0.4 See_Comment [Aut omated message] The Basophils) system which ge nerated this result tra nsmitted reference range : <=1.0. The reference r samantha was not used to int erpret this result as normal/abnormal . [place] 441032-06-28 12:33:00 Test Item Value Reference Range Interpretation Comments Neutrophils # (test code = Neutrophils 4.4 1.5-8.1 #) [facility] CenterBmsqfbxZPGGNOVETO9098-29-44 12:33:00 Test Item Value Reference Range Interpretation Comments Lymphocytes # (test code = Lymphocytes 0.6 1.0-5.5 #) [place] 441032-06-28 12:33:00 Test Item Value Reference Range Interpretation Comments Monocytes # (test code 0.1 See_Comment [Aut omated message] The = Monocytes #) system which generated this result tra nsmitted reference range : <=0.8. The reference r samantha was not used to int erpret this result as normal/abnormal . [place] 441032-06-28 12:33:00 Test Item Value Reference Range Interpretation Comments Macrocyte (test code = 1+ *ABN*(11/25/21 Macrocyte) 7:33 AM) [place] 441032-06-28 12:33:00 Test Item Value Reference Range Interpretation Comments WBC (test code = WBC) 5.2 3.7-10.4 [place] 441032-06-28 12:33:00 Test Item Value Reference Range Interpretation Comments RBC (test code = RBC) 2.18 4.70-6.10 [place] 441032-06-28 12:33:00 Test Item Value Reference Range Interpretation Comments Hgb (test code = Hgb) 7.8 14.0-18.0 [place] [address]-06-28 12:33:00 Test Item Value Reference Range Interpretation Comments Hct (test code = Hct) 23.6 42.0-54.0 [place] 441032-06-28 12:33:00 Test Item Value Reference Range Interpretation Comments MCV (test code = MCV) 108.4 80.0-94.0 [place] 441032-06-28 12:33:00 Test Item Value Reference Range Interpretation Comments MCH (test code = MCH) 35.9 pg 27.0-31.0 [place] 441032-06-28 12:33:00 Test Item Value Reference Range Interpretation Comments MCHC (test code = MCHC) 33.1 32.0-36.0 [place] 441032-06-28 12:33:00 Test Item Value Reference Range Interpretation Comments RDW (test code = RDW) 21.5 11.5-14.5 [place] 441032-06-28 12:33:00 Test Item Value Reference Range Interpretation Comments Platelet (test code = Platelet) 167 133-450 [place] 441032-06-28 12:33:00 Test Item Value Reference Range Interpretation Comments MPV (test code = MPV) 7.6 7.4-10.4 [place] 441032-06-28 12:33:00 Test Item Value Reference Range Interpretation Comments Segs (test code = Segs) 84.8 45.0-75.0 [place] 441032-06-28 12:33:00 Test Item Value Reference Range Interpretation Comments Lymphocytes (test code = Lymphocytes) 11.6 20.0-40.0 [place] [address]-06-28 12:33:00 Test Item Value Reference Range Interpretation Comments Monocytes (test code = Monocytes) 2.8 2.0-12.0 [place] 441032-06-28 12:33:00 Test Item Value Reference Range Interpretation Comments Eosinophils (test code = 0.4 See_Comment [A utomated message] The Eosinophils) system which ge nerated this result tra nsmitted reference range : <=4.0. The reference r samantha was not used to int erpret this result as normal/abnormal . [place] 441032-06-28 12:33:00 Test Item Value Reference Range Interpretation Comments Basophils (test code = 0.4 See_Comment [Aut omated message] The Basophils) system which ge nerated this result tra nsmitted reference range : <=1.0. The reference r samantha was not used to int erpret this result as normal/abnormal . [place] 441032-06-28 12:33:00 Test Item Value Reference Range Interpretation Comments Neutrophils # (test code = Neutrophils 4.4 1.5-8.1 #) [place] 441032-06-28 12:33:00 Test Item Value Reference Range Interpretation Comments Lymphocytes # (test code = Lymphocytes 0.6 1.0-5.5 #) [place] 441032-06-28 12:33:00 Test Item Value Reference Range Interpretation Comments Monocytes # (test code 0.1 See_Comment [Aut omated message] The = Monocytes #) system which generated this result tra nsmitted reference range : <=0.8. The reference r samantha was not used to int erpret this result as normal/abnormal . [facility] CenterAkdoqwwDWLIDQOCGO9598-75-06 12:33:00 Test Item Value Reference Range Interpretation Comments Macrocyte (test code = 1+ *ABN*(11/25/21 Macrocyte) 7:33 AM) [facility] CenterLltkjqhOICYUPNKPZ3315-13-28 12:33:00 Test Item Value Reference Range Interpretation Comments WBC (test code = WBC) 5.2 3.7-10.4 [facility] CenterJdpxzwxOHCELSVZVE7689-06-84 12:33:00 Test Item Value Reference Range Interpretation Comments RBC (test code = RBC) 2.18 4.70-6.10 [facility] CenterAycugneHTXXIKVKVF4215-65-77 12:33:00 Test Item Value Reference Range Interpretation Comments Hgb (test code = Hgb) 7.8 14.0-18.0 [facility] CenterTzshiwtHYRYBMQVOI3936-85-44 12:33:00 Test Item Value Reference Range Interpretation Comments Hct (test code = Hct) 23.6 42.0-54.0 [facility] CenterWxxnixnFKUPFCUYTJ1855-23-23 12:33:00 Test Item Value Reference Range Interpretation Comments MCV (test code = MCV) 108.4 80.0-94.0 [facility] CenterXpscymeBQHIDNJLJM5719-73-57 12:33:00 Test Item Value Reference Range Interpretation Comments MCH (test code = MCH) 35.9 pg 27.0-31.0 [facility] CenterWriudepEZEELRFALH4507-52-30 12:33:00 Test Item Value Reference Range Interpretation Comments MCHC (test code = MCHC) 33.1 32.0-36.0 [facility] CenterRubwcolBLUXUOYCTR7484-30-10 12:33:00 Test Item Value Reference Range Interpretation Comments RDW (test code = RDW) 21.5 11.5-14.5 [facility] CenterShrockxYVKQGIIVCP1457-88-44 12:33:00 Test Item Value Reference Range Interpretation Comments Platelet (test code = Platelet) 167 133-450 [facility] CenterFaupuswTDDJVJXREC6675-67-62 12:33:00 Test Item Value Reference Range Interpretation Comments MPV (test code = MPV) 7.6 7.4-10.4 [place] 441032-06-28 12:33:00 Test Item Value Reference Range Interpretation Comments Segs (test code = Segs) 84.8 45.0-75.0 [place] 441032-06-28 12:33:00 Test Item Value Reference Range Interpretation Comments Lymphocytes (test code = Lymphocytes) 11.6 20.0-40.0 [place] 441032-06-28 12:33:00 Test Item Value Reference Range Interpretation Comments Monocytes (test code = Monocytes) 2.8 2.0-12.0 [place] 441032-06-28 12:33:00 Test Item Value Reference Range Interpretation Comments Eosinophils (test code = 0.4 See_Comment [A utomated message] The Eosinophils) system which ge nerated this result tra nsmitted reference range : <=4.0. The reference r samantha was not used to int erpret this result as normal/abnormal . [place] 441032-06-28 12:33:00 Test Item Value Reference Range Interpretation Comments Basophils (test code = 0.4 See_Comment [Aut omated message] The Basophils) system which ge nerated this result tra nsmitted reference range : <=1.0. The reference r samantha was not used to int erpret this result as normal/abnormal . [facility] CenterZbxyiezWMKLWBIAEM2115-70-89 12:33:00 Test Item Value Reference Range Interpretation Comments Neutrophils # (test code = Neutrophils 4.4 1.5-8.1 #) [facility] CenterMjuouxnEYXMRUINUT2724-75-42 12:33:00 Test Item Value Reference Range Interpretation Comments Lymphocytes # (test code = Lymphocytes 0.6 1.0-5.5 #) [facility] CenterZxfvzwnUBIJCIWBJB7979-66-45 12:33:00 Test Item Value Reference Range Interpretation Comments Monocytes # (test code 0.1 See_Comment [Aut omated message] The = Monocytes #) system which generated this result tra nsmitted reference range : <=0.8. The reference r samantha was not used to int erpret this result as normal/abnormal . [place] 441032-06-28 12:33:00 Test Item Value Reference Range Interpretation Comments Macrocyte (test code = 1+ *ABN*(11/25/21 Macrocyte) 7:33 AM) [place] 441032-06-28 12:33:00 Test Item Value Reference Range Interpretation Comments WBC (test code = WBC) 5.2 3.7-10.4 [facility] CenterTinkmucNEDQYSPEHY8798-05-97 12:33:00 Test Item Value Reference Range Interpretation Comments RBC (test code = RBC) 2.18 4.70-6.10 [facility] CenterQcamdbzUUSIMFPGYL4416-52-40 12:33:00 Test Item Value Reference Range Interpretation Comments Hgb (test code = Hgb) 7.8 14.0-18.0 [place] 441032-06-28 12:33:00 Test Item Value Reference Range Interpretation Comments Hct (test code = Hct) 23.6 42.0-54.0 [place] 441032-06-28 12:33:00 Test Item Value Reference Range Interpretation Comments MCV (test code = MCV) 108.4 80.0-94.0 [place] 441032-06-28 12:33:00 Test Item Value Reference Range Interpretation Comments MCH (test code = MCH) 35.9 pg 27.0-31.0 [facility] CenterOdqcugnCQEDWUKGUJ5344-78-70 12:33:00 Test Item Value Reference Range Interpretation Comments MCHC (test code = MCHC) 33.1 32.0-36.0 [facility] CenterOzyztfaCFJNTASFWR8920-27-44 12:33:00 Test Item Value Reference Range Interpretation Comments RDW (test code = RDW) 21.5 11.5-14.5 [facility] CenterXpdsbefQNHZEPLPFU9661-11-93 12:33:00 Test Item Value Reference Range Interpretation Comments Platelet (test code = Platelet) 167 133-450 [facility] CenterIeagemaSDXSPTVFQS1651-93-54 12:33:00 Test Item Value Reference Range Interpretation Comments MPV (test code = MPV) 7.6 7.4-10.4 [place] 441032-06-28 12:33:00 Test Item Value Reference Range Interpretation Comments Segs (test code = Segs) 84.8 45.0-75.0 [place] 441032-06-28 12:33:00 Test Item Value Reference Range Interpretation Comments Lymphocytes (test code = Lymphocytes) 11.6 20.0-40.0 [place] 441032-06-28 12:33:00 Test Item Value Reference Range Interpretation Comments Monocytes (test code = Monocytes) 2.8 2.0-12.0 [facility] CenterChapglvFVKOARWLYV4903-96-33 12:33:00 Test Item Value Reference Range Interpretation Comments Eosinophils (test code = 0.4 See_Comment [A utomated message] The Eosinophils) system which ge nerated this result tra nsmitted reference range : <=4.0. The reference r samantha was not used to int erpret this result as normal/abnormal . [facility] CenterKghbobvCGAQRSRYSP2338-31-88 12:33:00 Test Item Value Reference Range Interpretation Comments Basophils (test code = 0.4 See_Comment [Aut omated message] The Basophils) system which ge nerated this result tra nsmitted reference range : <=1.0. The reference r samantha was not used to int erpret this result as normal/abnormal . [facility] CenterSrxqiduONEHSGUGUO4905-59-18 12:33:00 Test Item Value Reference Range Interpretation Comments Neutrophils # (test code = Neutrophils 4.4 1.5-8.1 #) [place] 441032-06-28 12:33:00 Test Item Value Reference Range Interpretation Comments Lymphocytes # (test code = Lymphocytes 0.6 1.0-5.5 #) [place] 441032-06-28 12:33:00 Test Item Value Reference Range Interpretation Comments Monocytes # (test code 0.1 See_Comment [Aut omated message] The = Monocytes #) system which generated this result tra nsmitted reference range : <=0.8. The reference r samantha was not used to int erpret this result as normal/abnormal . [facility] CenterOefrabjNUXEETVPOZ7960-31-08 12:33:00 Test Item Value Reference Range Interpretation Comments Macrocyte (test code = 1+ *ABN*(11/25/21 Macrocyte) 7:33 AM) [place] 441032-06-28 12:33:00 Test Item Value Reference Range Interpretation Comments WBC (test code = WBC) 5.2 3.7-10.4 [place] 441032-06-28 12:33:00 Test Item Value Reference Range Interpretation Comments RBC (test code = RBC) 2.18 4.70-6.10 [place] 441032-06-28 12:33:00 Test Item Value Reference Range Interpretation Comments Hgb (test code = Hgb) 7.8 14.0-18.0 [facility] CenterFbzzxrmTMRWKZIKFY2950-29-88 12:33:00 Test Item Value Reference Range Interpretation Comments Hct (test code = Hct) 23.6 42.0-54.0 [facility] CenterKrexvfwZMOGFBJKHL7637-15-34 12:33:00 Test Item Value Reference Range Interpretation Comments MCV (test code = MCV) 108.4 80.0-94.0 [place] 441032-06-28 12:33:00 Test Item Value Reference Range Interpretation Comments MCH (test code = MCH) 35.9 pg 27.0-31.0 [facility] CenterUxnmlsnAIYCJVIHJQ6404-30-69 12:33:00 Test Item Value Reference Range Interpretation Comments MCHC (test code = MCHC) 33.1 32.0-36.0 [facility] CenterPtylpmoUVKALTYNYI6563-47-08 12:33:00 Test Item Value Reference Range Interpretation Comments RDW (test code = RDW) 21.5 11.5-14.5 [place] 441032-06-28 12:33:00 Test Item Value Reference Range Interpretation Comments Platelet (test code = Platelet) 167 133-450 [facility]ev[facility]rwXWWFQXLXTH4329-22-64 12:33:00 Test Item Value Reference Range Interpretation Comments MPV (test code = MPV) 7.6 7.4-10.4 [facility] CenterWkuhmjcGUBHQGXOQX6075-60-18 12:33:00 Test Item Value Reference Range Interpretation Comments Segs (test code = Segs) 84.8 45.0-75.0 [place] 441032-06-28 12:33:00 Test Item Value Reference Range Interpretation Comments Lymphocytes (test code = Lymphocytes) 11.6 20.0-40.0 [place] 441032-06-28 12:33:00 Test Item Value Reference Range Interpretation Comments Monocytes (test code = Monocytes) 2.8 2.0-12.0 [place] [address]-06-28 12:33:00 Test Item Value Reference Range Interpretation Comments Eosinophils (test code = 0.4 See_Comment [A utomated message] The Eosinophils) system which ge nerated this result tra nsmitted reference range : <=4.0. The reference r samantha was not used to int erpret this result as normal/abnormal . [facility] CenterZtnuwikAVJRSWAEYO1200-08-80 12:33:00 Test Item Value Reference Range Interpretation Comments Basophils (test code = 0.4 See_Comment [Aut omated message] The Basophils) system which ge nerated this result tra nsmitted reference range : <=1.0. The reference r samantha was not used to int erpret this result as normal/abnormal . [facility] CenterEvkeptcTWLVRWSRFM4423-43-74 12:33:00 Test Item Value Reference Range Interpretation Comments Neutrophils # (test code = Neutrophils 4.4 1.5-8.1 #) [facility] CenterRxsvtekYLCCYRMUAC0448-39-68 12:33:00 Test Item Value Reference Range Interpretation Comments Lymphocytes # (test code = Lymphocytes 0.6 1.0-5.5 #) [place] 441032-06-28 12:33:00 Test Item Value Reference Range Interpretation Comments Monocytes # (test code 0.1 See_Comment [Aut omated message] The = Monocytes #) system which generated this result tra nsmitted reference range : <=0.8. The reference r samantha was not used to int erpret this result as normal/abnormal . [facility] CenterNgdbuhvBVDKNBDRQI2020-47-74 12:33:00 Test Item Value Reference Range Interpretation Comments Macrocyte (test code = 1+ *ABN*(11/25/21 Macrocyte) 7:33 AM) [facility] CenterAbuuxffWJNAYMYZTS5768-13-79 12:33:00 Test Item Value Reference Range Interpretation Comments WBC (test code = WBC) 5.2 3.7-10.4 [place] 441032-06-28 12:33:00 Test Item Value Reference Range Interpretation Comments RBC (test code = RBC) 2.18 4.70-6.10 [place] 441032-06-28 12:33:00 Test Item Value Reference Range Interpretation Comments Hgb (test code = Hgb) 7.8 14.0-18.0 [place] [address]-06-28 12:33:00 Test Item Value Reference Range Interpretation Comments Hct (test code = Hct) 23.6 42.0-54.0 [place] 441032-06-28 12:33:00 Test Item Value Reference Range Interpretation Comments MCV (test code = MCV) 108.4 80.0-94.0 [place] [address]-06-28 12:33:00 Test Item Value Reference Range Interpretation Comments MCH (test code = MCH) 35.9 pg 27.0-31.0 [place] 441032-06-28 12:33:00 Test Item Value Reference Range Interpretation Comments MCHC (test code = MCHC) 33.1 32.0-36.0 [facility] CenterDsxqxipRLOSWWXTZD4002-83-60 12:33:00 Test Item Value Reference Range Interpretation Comments RDW (test code = RDW) 21.5 11.5-14.5 [place] 441032-06-28 12:33:00 Test Item Value Reference Range Interpretation Comments Platelet (test code = Platelet) 167 133-450 [place] 441032-06-28 12:33:00 Test Item Value Reference Range Interpretation Comments MPV (test code = MPV) 7.6 7.4-10.4 [facility] CenterNgmlfohOYNEOCTQTN7627-22-85 12:33:00 Test Item Value Reference Range Interpretation Comments Segs (test code = Segs) 84.8 45.0-75.0 [facility] CenterAuqcrocVVQFPQYUHB8197-77-83 12:33:00 Test Item Value Reference Range Interpretation Comments Lymphocytes (test code = Lymphocytes) 11.6 20.0-40.0 [place] 441032-06-28 12:33:00 Test Item Value Reference Range Interpretation Comments Monocytes (test code = Monocytes) 2.8 2.0-12.0 [facility] CenterAhcooljXDDKGQFSWD6561-32-30 12:33:00 Test Item Value Reference Range Interpretation Comments Eosinophils (test code = 0.4 See_Comment [A utomated message] The Eosinophils) system which ge nerated this result tra nsmitted reference range : <=4.0. The reference r samantha was not used to int erpret this result as normal/abnormal . [place] 441032-06-28 12:33:00 Test Item Value Reference Range Interpretation Comments Basophils (test code = 0.4 See_Comment [Aut omated message] The Basophils) system which ge nerated this result tra nsmitted reference range : <=1.0. The reference r samantha was not used to int erpret this result as normal/abnormal . [place] 441032-06-28 12:33:00 Test Item Value Reference Range Interpretation Comments Neutrophils # (test code = Neutrophils 4.4 1.5-8.1 #) [place] 441032-06-28 12:33:00 Test Item Value Reference Range Interpretation Comments Lymphocytes # (test code = Lymphocytes 0.6 1.0-5.5 #) [place] 441032-06-28 12:33:00 Test Item Value Reference Range Interpretation Comments Monocytes # (test code 0.1 See_Comment [Aut omated message] The = Monocytes #) system which generated this result tra nsmitted reference range : <=0.8. The reference r samantha was not used to int erpret this result as normal/abnormal . [place] 441032-06-28 12:33:00 Test Item Value Reference Range Interpretation Comments Macrocyte (test code = 1+ *ABN*(11/25/21 Macrocyte) 7:33 AM) [place] 441032-06-28 12:33:00 Test Item Value Reference Range Interpretation Comments WBC (test code = WBC) 5.2 3.7-10.4 [facility] CenterMwnhqwsRSWWJGBRMI2609-13-31 12:33:00 Test Item Value Reference Range Interpretation Comments RBC (test code = RBC) 2.18 4.70-6.10 [place] 441032-06-28 12:33:00 Test Item Value Reference Range Interpretation Comments Hgb (test code = Hgb) 7.8 14.0-18.0 [place] 441032-06-28 12:33:00 Test Item Value Reference Range Interpretation Comments Hct (test code = Hct) 23.6 42.0-54.0 [place] 441032-06-28 12:33:00 Test Item Value Reference Range Interpretation Comments MCV (test code = MCV) 108.4 80.0-94.0 [place] 441032-06-28 12:33:00 Test Item Value Reference Range Interpretation Comments MCH (test code = MCH) 35.9 pg 27.0-31.0 [place] 441032-06-28 12:33:00 Test Item Value Reference Range Interpretation Comments MCHC (test code = MCHC) 33.1 32.0-36.0 [place] 441032-06-28 12:33:00 Test Item Value Reference Range Interpretation Comments RDW (test code = RDW) 21.5 11.5-14.5 [place] 441032-06-28 12:33:00 Test Item Value Reference Range Interpretation Comments Platelet (test code = Platelet) 167 133-450 [facility] CenterSzmxqvbEHIOUGRVXB0186-64-68 12:33:00 Test Item Value Reference Range Interpretation Comments MPV (test code = MPV) 7.6 7.4-10.[address] [facility]2022-06-28 11:17:00 Test Item Value Reference Range Interpretation Comments Vitamin B12 Lvl (test code = Vitamin 1508 B12 Lvl) [facility]2022-06-28 11:17:00 Test Item Value Reference Range Interpretation Comments Folate Lvl (test code = Folate Lvl) 22.[address] [facility]2022-06-28 11:17:00 Test Item Value Reference Range Interpretation Comments Ferritin Lvl (test code = Ferritin Lvl) 1423 16-665 [place] 852792-06-28 11:17:00 Test Item Value Reference Range Interpretation Comments Glucose Lvl (test code = Glucose Lvl) 205 70-99 [place] 852792-06-28 11:17:00 Test Item Value Reference Range Interpretation Comments BUN (test code = BUN) 60 7-22 [place] 852792-06-28 11:17:00 Test Item Value Reference Range Interpretation Comments Creatinine Lvl (test code = Creatinine 8.46 0.50-1.40 Lvl) [place] 852792-06-28 11:17:00 Test Item Value Reference Range Interpretation Comments Sodium Lvl (test code = Sodium Lvl) 131 135-145 [place] 852792-06-28 11:17:00 Test Item Value Reference Range Interpretation Comments Potassium Lvl (test code = Potassium 5.2 3.5-5.1 Lvl) [place] 852792-06-28 11:17:00 Test Item Value Reference Range Interpretation Comments Chloride Lvl (test code = Chloride Lvl) 93 95-109 [place] 852792-06-28 11:17:00 Test Item Value Reference Range Interpretation Comments CO2 (test code = CO2) 29 24-32 [place] 852792-06-28 11:17:00 Test Item Value Reference Range Interpretation Comments Calcium Lvl (test code = Calcium Lvl) 8.7 8.5-10.5 [place] 852792-06-28 11:17:00 Test Item Value Reference Range Interpretation Comments Total Protein (test code = Total 6.0 6.4-8.4 Protein) [place] 852792-06-28 11:17:00 Test Item Value Reference Range Interpretation Comments Albumin Lvl (test code = Albumin Lvl) 2.6 3.5-5.0 [place] 852792-06-28 11:17:00 Test Item Value Reference Range Interpretation Comments ALT (test code = ALT) 43 See_Comment [Auto mated message] The system which ge nerated this result transmit swathi reference range : <=65. The reference range was not used to interpr et this result as deny l/abnormal. [facility]2022-06-28 11:17:00 Test Item Value Reference Range Interpretation Comments AST (test code = AST) 35 See_Comment [Auto mated message] The system which ge nerated this result transmit swathi reference range : <=37. The reference range was not used to interpr et this result as deny l/abnormal. [facility]2022-06-28 11:17:00 Test Item Value Reference Range Interpretation Comments Alk Phos (test code = Alk Phos) 385 39-136 [facility]2022-06-28 11:17:00 Test Item Value Reference Range Interpretation Comments Bili Total (test code = Bili Total) 1.2 0.2-1.3 [place] 852792-06-28 11:17:00 Test Item Value Reference Range Interpretation Comments AGAP (test code = AGAP) 14.2 10.0-20.0 [place] 852792-06-28 11:17:00 Test Item Value Reference Range Interpretation Comments B/C Ratio (test code = B/C Ratio) 7 1 6-25 [place] 852792-06-28 11:17:00 Test Item Value Reference Range Interpretation Comments Globulin (test code = Globulin) 3.4 2.7-4.2 [place] 852792-06-28 11:17:00 Test Item Value Reference Range Interpretation Comments A/G Ratio (test code = A/G Ratio) 0.8 1 0.7-1.6 [facility]2022-06-28 11:17:00 Test Item Value Reference Range Interpretation Comments eGFR (test code = eGFR) 6 [facility]2022-06-28 11:17:00 Test Item Value Reference Range Interpretation Comments Magnesium Lvl (test code = Magnesium 1.9 1.8-2.4 Lvl) [facility]2022-06-28 11:17:00 Test Item Value Reference Range Interpretation Comments LDH (test code = LDH) 297 98-192 [facility]2022-06-28 11:17:00 Test Item Value Reference Range Interpretation Comments Procalcitonin Lvl (test 0.63 See_Comment [Au tomated message] code = Procalcitonin Lvl) e system which generated this result transmitted ref erence range: <=0.10. The reference range was not used to interpr et this result as normal/abnormal . [facility] CenterPsrueyrEMIITWZRAU7978-93-49 11:17:00 Test Item Value Reference Range Interpretation Comments D-Dimer (test code = D-Dimer) 5.33 [place] 815502-06-28 11:17:00 Test Item Value Reference Range Interpretation Comments Hep Bs Ag (test code Negative *NA*(11/25/21 = Hep Bs Ag) 6:17 AM) [facility]ry[facility]zhVQPNNJYBCH0409-61-55 11:17:00 Test Item Value Reference Range Interpretation Comments C-REACTIVE PROTEIN (test code = 134.0 C-REACTIVE PROTEIN) [facility] TempleAastwczVKWEWWRIUN1873-14-47 11:17:00 Test Item Value Reference Range Interpretation Comments Interleukin 6 (test code = Interleukin 25.99 6) [facility]2022-06-28 11:17:00 Test Item Value Reference Range Interpretation Comments Vitamin B12 Lvl (test code = Vitamin 1508 B12 Lvl) [facility]2022-06-28 11:17:00 Test Item Value Reference Range Interpretation Comments Folate Lvl (test code = Folate Lvl) 22.[address] [facility]2022-06-28 11:17:00 Test Item Value Reference Range Interpretation Comments Ferritin Lvl (test code = Ferritin Lvl) 1423 22-275 [place] 852792-06-28 11:17:00 Test Item Value Reference Range Interpretation Comments Glucose Lvl (test code = Glucose Lvl) 205 70-99 [place] 852792-06-28 11:17:00 Test Item Value Reference Range Interpretation Comments BUN (test code = BUN) 60 7-22 [place] 852792-06-28 11:17:00 Test Item Value Reference Range Interpretation Comments Creatinine Lvl (test code = Creatinine 8.46 0.50-1.40 Lvl) [place] 852792-06-28 11:17:00 Test Item Value Reference Range Interpretation Comments Sodium Lvl (test code = Sodium Lvl) 131 135-145 [place] 852792-06-28 11:17:00 Test Item Value Reference Range Interpretation Comments Potassium Lvl (test code = Potassium 5.2 3.5-5.1 Lvl) [place] 852792-06-28 11:17:00 Test Item Value Reference Range Interpretation Comments Chloride Lvl (test code = Chloride Lvl) 93 95-109 [place] 852792-06-28 11:17:00 Test Item Value Reference Range Interpretation Comments CO2 (test code = CO2) 29 24-32 [place] 852792-06-28 11:17:00 Test Item Value Reference Range Interpretation Comments Calcium Lvl (test code = Calcium Lvl) 8.7 8.5-10.5 [place] 852792-06-28 11:17:00 Test Item Value Reference Range Interpretation Comments Total Protein (test code = Total 6.0 6.4-8.4 Protein) [place] 852792-06-28 11:17:00 Test Item Value Reference Range Interpretation Comments Albumin Lvl (test code = Albumin Lvl) 2.6 3.5-5.0 [place] 852792-06-28 11:17:00 Test Item Value Reference Range Interpretation Comments ALT (test code = ALT) 43 See_Comment [Auto mated message] The system which ge nerated this result transmit swathi reference range : <=65. The reference range was not used to interpr et this result as deny l/abnormal. [place] 852792-06-28 11:17:00 Test Item Value Reference Range Interpretation Comments AST (test code = AST) 35 See_Comment [Auto mated message] The system which ge nerated this result transmit swathi reference range : <=37. The reference range was not used to interpr et this result as deny l/abnormal. [facility]2022-06-28 11:17:00 Test Item Value Reference Range Interpretation Comments Alk Phos (test code = Alk Phos) 385 39-136 [facility]2022-06-28 11:17:00 Test Item Value Reference Range Interpretation Comments Bili Total (test code = Bili Total) 1.2 0.2-1.3 [facility]2022-06-28 11:17:00 Test Item Value Reference Range Interpretation Comments AGAP (test code = AGAP) 14.2 10.0-20.0 [place] 852792-06-28 11:17:00 Test Item Value Reference Range Interpretation Comments B/C Ratio (test code = B/C Ratio) 7 1 6-25 [place] 852792-06-28 11:17:00 Test Item Value Reference Range Interpretation Comments Globulin (test code = Globulin) 3.4 2.7-4.2 [place] 852792-06-28 11:17:00 Test Item Value Reference Range Interpretation Comments A/G Ratio (test code = A/G Ratio) 0.8 1 0.7-1.6 [facility]2022-06-28 11:17:00 Test Item Value Reference Range Interpretation Comments eGFR (test code = eGFR) 6 [facility]2022-06-28 11:17:00 Test Item Value Reference Range Interpretation Comments Magnesium Lvl (test code = Magnesium 1.9 1.8-2.4 Lvl) [facility]2022-06-28 11:17:00 Test Item Value Reference Range Interpretation Comments LDH (test code = LDH) 297 98-192 [facility]2022-06-28 11:17:00 Test Item Value Reference Range Interpretation Comments Procalcitonin Lvl (test 0.63 See_Comment [Au tomated message] code = Procalcitonin Lvl) Th e system which generated this result transmitted ref erence range: <=0.10. The reference range was not used to interpr et this result as normal/abnormal . [facility] CenterObziylaXJSCVQMULV6538-65-44 11:17:00 Test Item Value Reference Range Interpretation Comments D-Dimer (test code = D-Dimer) 5.33 [place] 815502-06-28 11:17:00 Test Item Value Reference Range Interpretation Comments Hep Bs Ag (test code Negative *NA*(11/25/21 = Hep Bs Ag) 6:17 AM) [place] 815502-06-28 11:17:00 Test Item Value Reference Range Interpretation Comments C-REACTIVE PROTEIN (test code = 134.0 C-REACTIVE PROTEIN) [facility] TempleGvkvosbVITYOHQGEM3837-24-76 11:17:00 Test Item Value Reference Range Interpretation Comments Interleukin 6 (test code = Interleukin 25.99 6) [facility]2022-06-28 11:17:00 Test Item Value Reference Range Interpretation Comments Vitamin B12 Lvl (test code = Vitamin 1508 B12 Lvl) [facility]2022-06-28 11:17:00 Test Item Value Reference Range Interpretation Comments Folate Lvl (test code = Folate Lvl) 22.[address] [facility]2022-06-28 11:17:00 Test Item Value Reference Range Interpretation Comments Ferritin Lvl (test code = Ferritin Lvl) 1423 22-275 [facility]2022-06-28 11:17:00 Test Item Value Reference Range Interpretation Comments Glucose Lvl (test code = Glucose Lvl) 205 70-99 [place] 852792-06-28 11:17:00 Test Item Value Reference Range Interpretation Comments BUN (test code = BUN) 60 7-22 [place] 852792-06-28 11:17:00 Test Item Value Reference Range Interpretation Comments Creatinine Lvl (test code = Creatinine 8.46 0.50-1.40 Lvl) [facility]2022-06-28 11:17:00 Test Item Value Reference Range Interpretation Comments Sodium Lvl (test code = Sodium Lvl) 131 135-145 [facility]2022-06-28 11:17:00 Test Item Value Reference Range Interpretation Comments Potassium Lvl (test code = Potassium 5.2 3.5-5.1 Lvl) [place] 852792-06-28 11:17:00 Test Item Value Reference Range Interpretation Comments Chloride Lvl (test code = Chloride Lvl) 93 95-109 [place] 852792-06-28 11:17:00 Test Item Value Reference Range Interpretation Comments CO2 (test code = CO2) 29 24-32 [place] 852792-06-28 11:17:00 Test Item Value Reference Range Interpretation Comments Calcium Lvl (test code = Calcium Lvl) 8.7 8.5-10.5 [place] 852792-06-28 11:17:00 Test Item Value Reference Range Interpretation Comments Total Protein (test code = Total 6.0 6.4-8.4 Protein) [place] 852792-06-28 11:17:00 Test Item Value Reference Range Interpretation Comments Albumin Lvl (test code = Albumin Lvl) 2.6 3.5-5.0 [place] 852792-06-28 11:17:00 Test Item Value Reference Range Interpretation Comments ALT (test code = ALT) 43 See_Comment [Auto mated message] The system which ge nerated this result transmit swathi reference range : <=65. The reference range was not used to interpr et this result as deny l/abnormal. [facility]2022-06-28 11:17:00 Test Item Value Reference Range Interpretation Comments AST (test code = AST) 35 See_Comment [Auto mated message] The system which ge nerated this result transmit swathi reference range : <=37. The reference range was not used to interpr et this result as deny l/abnormal. [facility]2022-06-28 11:17:00 Test Item Value Reference Range Interpretation Comments Alk Phos (test code = Alk Phos) 385 39-136 [id number] 11:17:00 Test Item Value Reference Range Interpretation Comments Bili Total (test code = Bili Total) 1.2 0.2-1.3 [place] 852792-06-28 11:17:00 Test Item Value Reference Range Interpretation Comments AGAP (test code = AGAP) 14.2 10.0-20.0 [place] 852792-06-28 11:17:00 Test Item Value Reference Range Interpretation Comments B/C Ratio (test code = B/C Ratio) 7 1 6-25 [facility] TUNZL4544-06-12 11:17:00 Test Item Value Reference Range Interpretation Comments Globulin (test code = Globulin) 3.4 2.7-4.2 [facility]2022-06-28 11:17:00 Test Item Value Reference Range Interpretation Comments A/G Ratio (test code = A/G Ratio) 0.8 1 0.7-1.6 [facility]2022-06-28 11:17:00 Test Item Value Reference Range Interpretation Comments eGFR (test code = eGFR) 6 [facility]2022-06-28 11:17:00 Test Item Value Reference Range Interpretation Comments Magnesium Lvl (test code = Magnesium 1.9 1.8-2.4 Lvl) [facility]2022-06-28 11:17:00 Test Item Value Reference Range Interpretation Comments LDH (test code = LDH) 297 98-192 [facility]2022-06-28 11:17:00 Test Item Value Reference Range Interpretation Comments Procalcitonin Lvl (test 0.63 See_Comment [Au tomated message] code = Procalcitonin Lvl) e system which generated this result transmitted ref erence range: <=0.10. The reference range was not used to interpr et this result as normal/abnormal . [facility] HospitalDbrmzcvPUYRKTNSSS9867-72-85 11:17:00 Test Item Value Reference Range Interpretation Comments D-Dimer (test code = D-Dimer) 5.33 [facility] HospitalWkemdusAXUGNYUQZQ8426-14-38 11:17:00 Test Item Value Reference Range Interpretation Comments Hep Bs Ag (test code Negative *NA*(11/25/21 = Hep Bs Ag) 6:17 AM) [facility]DdvivfyWEBYAHNSJZ0539-67-17 11:17:00 Test Item Value Reference Range Interpretation Comments C-REACTIVE PROTEIN (test code = 134.0 C-REACTIVE PROTEIN) [facility] HospitalZotncxsZAUWCHUPEG2103-72-66 11:17:00 Test Item Value Reference Range Interpretation Comments Interleukin 6 (test code = Interleukin 25.99 6) [facility]2022-06-28 11:17:00 Test Item Value Reference Range Interpretation Comments Vitamin B12 Lvl (test code = Vitamin 1508 B12 Lvl) [facility]2022-06-28 11:17:00 Test Item Value Reference Range Interpretation Comments Folate Lvl (test code = Folate Lvl) .[address] [facility]2022-06-28 11:17:00 Test Item Value Reference Range Interpretation Comments Ferritin Lvl (test code = Ferritin Lvl) 1423 22275 [facility]2022-06-28 11:17:00 Test Item Value Reference Range Interpretation Comments Glucose Lvl (test code = Glucose Lvl) 205 70-99 [place] 852792-06-28 11:17:00 Test Item Value Reference Range Interpretation Comments BUN (test code = BUN) 60 7-22 [facility]2022-06-28 11:17:00 Test Item Value Reference Range Interpretation Comments Creatinine Lvl (test code = Creatinine 8.46 0.50-1.40 Lvl) [place] 852792-06-28 11:17:00 Test Item Value Reference Range Interpretation Comments Sodium Lvl (test code = Sodium Lvl) 131 135-145 [place] 852792-06-28 11:17:00 Test Item Value Reference Range Interpretation Comments Potassium Lvl (test code = Potassium 5.2 3.5-5.1 Lvl) [place] 852792-06-28 11:17:00 Test Item Value Reference Range Interpretation Comments Chloride Lvl (test code = Chloride Lvl) 93 95-109 [facility]2022-06-28 11:17:00 Test Item Value Reference Range Interpretation Comments CO2 (test code = CO2) 29 24-32 [place] 852792-06-28 11:17:00 Test Item Value Reference Range Interpretation Comments Calcium Lvl (test code = Calcium Lvl) 8.7 8.5-10.5 [facility]2022-06-28 11:17:00 Test Item Value Reference Range Interpretation Comments Total Protein (test code = Total 6.0 6.4-8.4 Protein) [place] 852792-06-28 11:17:00 Test Item Value Reference Range Interpretation Comments Albumin Lvl (test code = Albumin Lvl) 2.6 3.5-5.0 [place] 852792-06-28 11:17:00 Test Item Value Reference Range Interpretation Comments ALT (test code = ALT) 43 See_Comment [Auto mated message] The system which ge nerated this result transmit swathi reference range : <=65. The reference range was not used to interpr et this result as deny l/abnormal. [place] 852792-06-28 11:17:00 Test Item Value Reference Range Interpretation Comments AST (test code = AST) 35 See_Comment [Auto mated message] The system which ge nerated this result transmit swathi reference range : <=37. The reference range was not used to interpr et this result as deny l/abnormal. [place] 852792-06-28 11:17:00 Test Item Value Reference Range Interpretation Comments Alk Phos (test code = Alk Phos) 385 39-136 [place] 852792-06-28 11:17:00 Test Item Value Reference Range Interpretation Comments Bili Total (test code = Bili Total) 1.2 0.2-1.3 [place] 852792-06-28 11:17:00 Test Item Value Reference Range Interpretation Comments AGAP (test code = AGAP) 14.2 10.0-20.0 [place] 852792-06-28 11:17:00 Test Item Value Reference Range Interpretation Comments B/C Ratio (test code = B/C Ratio) 7 1 6-25 [place] [id number] 11:17:00 Test Item Value Reference Range Interpretation Comments Globulin (test code = Globulin) 3.4 2.7-4.2 [place] [id number] 11:17:00 Test Item Value Reference Range Interpretation Comments A/G Ratio (test code = A/G Ratio) 0.8 1 0.7-1.6 [place] 852792-06-28 11:17:00 Test Item Value Reference Range Interpretation Comments eGFR (test code = eGFR) 6 [place] 852792-06-28 11:17:00 Test Item Value Reference Range Interpretation Comments Magnesium Lvl (test code = Magnesium 1.9 1.8-2.4 Lvl) [place] 852792-06-28 11:17:00 Test Item Value Reference Range Interpretation Comments LDH (test code = LDH) 297 98-192 [place] 852792-06-28 11:17:00 Test Item Value Reference Range Interpretation Comments Procalcitonin Lvl (test 0.63 See_Comment [Au tomated message] code = Procalcitonin Lvl) Th e system which generated this result transmitted ref erence range: <=0.10. The reference range was not used to interpr et this result as normal/abnormal . [id number] 11:17:00 Test Item Value Reference Range Interpretation Comments D-Dimer (test code = D-Dimer) 5.33 [id number] 11:17:00 Test Item Value Reference Range Interpretation Comments Hep Bs Ag (test code Negative *NA*(11/25/21 = Hep Bs Ag) 6:17 AM) [facility] TempleUadyulgPFPRPUNYXF8747-02-30 11:17:00 Test Item Value Reference Range Interpretation Comments C-REACTIVE PROTEIN (test code = 134.0 C-REACTIVE PROTEIN) [facility] TempleIbakditSMPVKTISNF6299-80-69 11:17:00 Test Item Value Reference Range Interpretation Comments Interleukin 6 (test code = Interleukin 25.99 6) [facility]2022-06-28 11:17:00 Test Item Value Reference Range Interpretation Comments Vitamin B12 Lvl (test code = Vitamin 1508 B12 Lvl) [facility]2022-06-28 11:17:00 Test Item Value Reference Range Interpretation Comments Folate Lvl (test code = Folate Lvl) 22.[address] [facility]2022-06-28 11:17:00 Test Item Value Reference Range Interpretation Comments Ferritin Lvl (test code = Ferritin Lvl) 1423 22-275 [facility]2022-06-28 11:17:00 Test Item Value Reference Range Interpretation Comments Glucose Lvl (test code = Glucose Lvl) 205 70-99 [facility]2022-06-28 11:17:00 Test Item Value Reference Range Interpretation Comments BUN (test code = BUN) 60 7-22 [facility]2022-06-28 11:17:00 Test Item Value Reference Range Interpretation Comments Creatinine Lvl (test code = Creatinine 8.46 0.50-1.40 Lvl) [facility]2022-06-28 11:17:00 Test Item Value Reference Range Interpretation Comments Sodium Lvl (test code = Sodium Lvl) 131 135-145 [facility]2022-06-28 11:17:00 Test Item Value Reference Range Interpretation Comments Potassium Lvl (test code = Potassium 5.2 3.5-5.1 Lvl) [facility]2022-06-28 11:17:00 Test Item Value Reference Range Interpretation Comments Chloride Lvl (test code = Chloride Lvl) 93 95-109 [place] 852792-06-28 11:17:00 Test Item Value Reference Range Interpretation Comments CO2 (test code = CO2) 29 24-32 [place] 852792-06-28 11:17:00 Test Item Value Reference Range Interpretation Comments Calcium Lvl (test code = Calcium Lvl) 8.7 8.5-10.5 [place] 852792-06-28 11:17:00 Test Item Value Reference Range Interpretation Comments Total Protein (test code = Total 6.0 6.4-8.4 Protein) [facility]2022-06-28 11:17:00 Test Item Value Reference Range Interpretation Comments Albumin Lvl (test code = Albumin Lvl) 2.6 3.5-5.0 [facility]2022-06-28 11:17:00 Test Item Value Reference Range Interpretation Comments ALT (test code = ALT) 43 See_Comment [Auto mated message] The system which ge nerated this result transmit swathi reference range : <=65. The reference range was not used to interpr et this result as deny l/abnormal. [facility]2022-06-28 11:17:00 Test Item Value Reference Range Interpretation Comments AST (test code = AST) 35 See_Comment [Auto mated message] The system which ge nerated this result transmit swathi reference range : <=37. The reference range was not used to interpr et this result as deny l/abnormal. [facility]2022-06-28 11:17:00 Test Item Value Reference Range Interpretation Comments Alk Phos (test code = Alk Phos) 385 39-136 [facility]2022-06-28 11:17:00 Test Item Value Reference Range Interpretation Comments Bili Total (test code = Bili Total) 1.2 0.2-1.3 [place] 852792-06-28 11:17:00 Test Item Value Reference Range Interpretation Comments AGAP (test code = AGAP) 14.2 10.0-20.0 [facility]2022-06-28 11:17:00 Test Item Value Reference Range Interpretation Comments B/C Ratio (test code = B/C Ratio) 7 1 6-25 [facility]2022-06-28 11:17:00 Test Item Value Reference Range Interpretation Comments Globulin (test code = Globulin) 3.4 2.7-4.2 [facility]2022-06-28 11:17:00 Test Item Value Reference Range Interpretation Comments A/G Ratio (test code = A/G Ratio) 0.8 1 0.7-1.6 [facility]2022-06-28 11:17:00 Test Item Value Reference Range Interpretation Comments eGFR (test code = eGFR) 6 [facility]2022-06-28 11:17:00 Test Item Value Reference Range Interpretation Comments Magnesium Lvl (test code = Magnesium 1.9 1.8-2.4 Lvl) [facility]2022-06-28 11:17:00 Test Item Value Reference Range Interpretation Comments LDH (test code = LDH) 297 98-192 [facility]2022-06-28 11:17:00 Test Item Value Reference Range Interpretation Comments Procalcitonin Lvl (test 0.63 See_Comment [Au tomated message] code = Procalcitonin Lvl) Th e system which generated this result transmitted ref erence range: <=0.10. The reference range was not used to interpr et this result as normal/abnormal . [facility] CenterJxrknllMAIVKEZXZZ8648-53-96 11:17:00 Test Item Value Reference Range Interpretation Comments D-Dimer (test code = D-Dimer) 5.33 [facility] HospitalIronalbXOMFDKFGDW6884-28-60 11:17:00 Test Item Value Reference Range Interpretation Comments Hep Bs Ag (test code Negative *NA*(11/25/21 = Hep Bs Ag) 6:17 AM) [facility] TempleQzfrvdzDBQPYQABEF5610-13-53 11:17:00 Test Item Value Reference Range Interpretation Comments C-REACTIVE PROTEIN (test code = 134.0 C-REACTIVE PROTEIN) [facility] TempleIheecziSSFURVSZZH7709-64-17 11:17:00 Test Item Value Reference Range Interpretation Comments Interleukin 6 (test code = Interleukin 25.99 6) [facility]2022-06-28 11:17:00 Test Item Value Reference Range Interpretation Comments Vitamin B12 Lvl (test code = Vitamin 1508 B12 Lvl) [facility]2022-06-28 11:17:00 Test Item Value Reference Range Interpretation Comments Folate Lvl (test code = Folate Lvl) 22.[address] [facility]2022-06-28 11:17:00 Test Item Value Reference Range Interpretation Comments Ferritin Lvl (test code = Ferritin Lvl) 1423 22-275 [facility]2022-06-28 11:17:00 Test Item Value Reference Range Interpretation Comments Glucose Lvl (test code = Glucose Lvl) 205 70-99 [facility]2022-06-28 11:17:00 Test Item Value Reference Range Interpretation Comments BUN (test code = BUN) 60 7-22 [facility]2022-06-28 11:17:00 Test Item Value Reference Range Interpretation Comments Creatinine Lvl (test code = Creatinine 8.46 0.50-1.40 Lvl) [facility]2022-06-28 11:17:00 Test Item Value Reference Range Interpretation Comments Sodium Lvl (test code = Sodium Lvl) 131 135-145 [facility]2022-06-28 11:17:00 Test Item Value Reference Range Interpretation Comments Potassium Lvl (test code = Potassium 5.2 3.5-5.1 Lvl) [facility]2022-06-28 11:17:00 Test Item Value Reference Range Interpretation Comments Chloride Lvl (test code = Chloride Lvl) 93 95-109 [facility]2022-06-28 11:17:00 Test Item Value Reference Range Interpretation Comments CO2 (test code = CO2) 29 24-32 [facility]2022-06-28 11:17:00 Test Item Value Reference Range Interpretation Comments Calcium Lvl (test code = Calcium Lvl) 8.7 8.5-10.5 [facility]2022-06-28 11:17:00 Test Item Value Reference Range Interpretation Comments Total Protein (test code = Total 6.0 6.4-8.4 Protein) [facility]2022-06-28 11:17:00 Test Item Value Reference Range Interpretation Comments Albumin Lvl (test code = Albumin Lvl) 2.6 3.5-5.0 [facility] [id number] 11:17:00 Test Item Value Reference Range Interpretation Comments ALT (test code = ALT) 43 See_Comment [Auto mated message] The system which ge nerated this result transmit swathi reference range : <=65. The reference range was not used to interpr et this result as deny l/abnormal. [facility] [employer] [id number] 11:17:00 Test Item Value Reference Range Interpretation Comments AST (test code = AST) 35 See_Comment [Auto mated message] The system which ge nerated this result transmit swathi reference range : <=37. The reference range was not used to interpr et this result as deny l/abnormal. [facility]2022-06-28 11:17:00 Test Item Value Reference Range Interpretation Comments Alk Phos (test code = Alk Phos) 385 39-136 [facility] [employer] [id number] 11:17:00 Test Item Value Reference Range Interpretation Comments Bili Total (test code = Bili Total) 1.2 0.2-1.3 [facility] [employer] [id number] 11:17:00 Test Item Value Reference Range Interpretation Comments AGAP (test code = AGAP) 14.2 10.0-20.0 [facility] [employer] [id number] 11:17:00 Test Item Value Reference Range Interpretation Comments B/C Ratio (test code = B/C Ratio) 7 1 6-25 [facility] [employer] [id number] 11:17:00 Test Item Value Reference Range Interpretation Comments Globulin (test code = Globulin) 3.4 2.7-4.2 [facility] [employer] [id number] 11:17:00 Test Item Value Reference Range Interpretation Comments A/G Ratio (test code = A/G Ratio) 0.8 1 0.7-1.6 [facility] [employer] [id number] 11:17:00 Test Item Value Reference Range Interpretation Comments eGFR (test code = eGFR) 6 [facility] [employer] [id number] 11:17:00 Test Item Value Reference Range Interpretation Comments Magnesium Lvl (test code = Magnesium 1.9 1.8-2.4 Lvl) [facility] [employer] [id number] 11:17:00 Test Item Value Reference Range Interpretation Comments LDH (test code = LDH) 297 98-192 [facility]2022-06-28 11:17:00 Test Item Value Reference Range Interpretation Comments Procalcitonin Lvl (test 0.63 See_Comment [Au tomated message] code = Procalcitonin Lvl) e system which generated this result transmitted ref erence range: <=0.10. The reference range was not used to interpr et this result as normal/abnormal . [facility] CenterScyzuuuGEOEZFCDPE3092-66-34 11:17:00 Test Item Value Reference Range Interpretation Comments D-Dimer (test code = D-Dimer) 5.33 [facility] Hospit[id number] 11:17:00 Test Item Value Reference Range Interpretation Comments Hep Bs Ag (test code Negative *NA*(11/25/21 = Hep Bs Ag) 6:17 AM) [place] 815502-06-28 11:17:00 Test Item Value Reference Range Interpretation Comments C-REACTIVE PROTEIN (test code = 134.0 C-REACTIVE PROTEIN) [facility] [id number] 11:17:00 Test Item Value Reference Range Interpretation Comments Interleukin 6 (test code = Interleukin 25.99 6) [facility]2022-06-28 11:17:00 Test Item Value Reference Range Interpretation Comments Vitamin B12 Lvl (test code = Vitamin 1508 B12 Lvl) [facility]2022-06-28 11:17:00 Test Item Value Reference Range Interpretation Comments Folate Lvl (test code = Folate Lvl) 22.[address] [facility]2022-06-28 11:17:00 Test Item Value Reference Range Interpretation Comments Ferritin Lvl (test code = Ferritin Lvl) 1423 22275 [facility]2022-06-28 11:17:00 Test Item Value Reference Range Interpretation Comments Glucose Lvl (test code = Glucose Lvl) 205 70-99 [facility]2022-06-28 11:17:00 Test Item Value Reference Range Interpretation Comments BUN (test code = BUN) 60 7-22 [facility]2022-06-28 11:17:00 Test Item Value Reference Range Interpretation Comments Creatinine Lvl (test code = Creatinine 8.46 0.50-1.40 Lvl) [facility]2022-06-28 11:17:00 Test Item Value Reference Range Interpretation Comments Sodium Lvl (test code = Sodium Lvl) 131 135-145 [place] 852792-06-28 11:17:00 Test Item Value Reference Range Interpretation Comments Potassium Lvl (test code = Potassium 5.2 3.5-5.1 Lvl) [place] 852792-06-28 11:17:00 Test Item Value Reference Range Interpretation Comments Chloride Lvl (test code = Chloride Lvl) 93 95-109 [place] 852792-06-28 11:17:00 Test Item Value Reference Range Interpretation Comments CO2 (test code = CO2) 29 24-32 [place] 852792-06-28 11:17:00 Test Item Value Reference Range Interpretation Comments Calcium Lvl (test code = Calcium Lvl) 8.7 8.5-10.5 [place] 852792-06-28 11:17:00 Test Item Value Reference Range Interpretation Comments Total Protein (test code = Total 6.0 6.4-8.4 Protein) [place] 852792-06-28 11:17:00 Test Item Value Reference Range Interpretation Comments Albumin Lvl (test code = Albumin Lvl) 2.6 3.5-5.0 [place] 852792-06-28 11:17:00 Test Item Value Reference Range Interpretation Comments ALT (test code = ALT) 43 See_Comment [Auto mated message] The system which ge nerated this result transmit swathi reference range : <=65. The reference range was not used to interpr et this result as deny l/abnormal. [place] 852792-06-28 11:17:00 Test Item Value Reference Range Interpretation Comments AST (test code = AST) 35 See_Comment [Auto mated message] The system which ge nerated this result transmit swathi reference range : <=37. The reference range was not used to interpr et this result as deny l/abnormal. [place] 852792-06-28 11:17:00 Test Item Value Reference Range Interpretation Comments Alk Phos (test code = Alk Phos) 385 39-136 [place] 852792-06-28 11:17:00 Test Item Value Reference Range Interpretation Comments Bili Total (test code = Bili Total) 1.2 0.2-1.3 [facility]2022-06-28 11:17:00 Test Item Value Reference Range Interpretation Comments AGAP (test code = AGAP) 14.2 10.0-20.0 [facility]2022-06-28 11:17:00 Test Item Value Reference Range Interpretation Comments B/C Ratio (test code = B/C Ratio) 7 1 6-25 [facility]2022-06-28 11:17:00 Test Item Value Reference Range Interpretation Comments Globulin (test code = Globulin) 3.4 2.7-4.2 [facility]2022-06-28 11:17:00 Test Item Value Reference Range Interpretation Comments A/G Ratio (test code = A/G Ratio) 0.8 1 0.7-1.6 [facility]2022-06-28 11:17:00 Test Item Value Reference Range Interpretation Comments eGFR (test code = eGFR) 6 [facility]2022-06-28 11:17:00 Test Item Value Reference Range Interpretation Comments Magnesium Lvl (test code = Magnesium 1.9 1.8-2.4 Lvl) [facility]2022-06-28 11:17:00 Test Item Value Reference Range Interpretation Comments LDH (test code = LDH) 297 98-192 [facility]2022-06-28 11:17:00 Test Item Value Reference Range Interpretation Comments Procalcitonin Lvl (test 0.63 See_Comment [Au tomated message] code = Procalcitonin Lvl) e system which generated this result transmitted ref erence range: <=0.10. The reference range was not used to interpr et this result as normal/abnormal . [facility] HospitalQesygqeMBEZKOOMZV0313-42-09 11:17:00 Test Item Value Reference Range Interpretation Comments D-Dimer (test code = D-Dimer) 5.33 [facility] Hos[id number] 11:17:00 Test Item Value Reference Range Interpretation Comments Hep Bs Ag (test code Negative *NA*(11/25/21 = Hep Bs Ag) 6:17 AM) [facility] HospitalKkmsffqOKAHFILRHA7789-74-23 11:17:00 Test Item Value Reference Range Interpretation Comments C-REACTIVE PROTEIN (test code = 134.0 C-REACTIVE PROTEIN) [facility] HospitalKeiyualZGBRFOCFYA8781-67-10 11:17:00 Test Item Value Reference Range Interpretation Comments Interleukin 6 (test code = Interleukin 25.99 6) [facility]2022-06-28 11:17:00 Test Item Value Reference Range Interpretation Comments Vitamin B12 Lvl (test code = Vitamin 1508 B12 Lvl) [facility]2022-06-28 11:17:00 Test Item Value Reference Range Interpretation Comments Folate Lvl (test code = Folate Lvl) 22.[address] [facility]2022-06-28 11:17:00 Test Item Value Reference Range Interpretation Comments Ferritin Lvl (test code = Ferritin Lvl) 1423 22-275 [facility]2022-06-28 11:17:00 Test Item Value Reference Range Interpretation Comments Glucose Lvl (test code = Glucose Lvl) 205 70-99 [facility]2022-06-28 11:17:00 Test Item Value Reference Range Interpretation Comments BUN (test code = BUN) 60 7-22 [facility]2022-06-28 11:17:00 Test Item Value Reference Range Interpretation Comments Creatinine Lvl (test code = Creatinine 8.46 0.50-1.40 Lvl) [facility]2022-06-28 11:17:00 Test Item Value Reference Range Interpretation Comments Sodium Lvl (test code = Sodium Lvl) 131 135-145 [facility]2022-06-28 11:17:00 Test Item Value Reference Range Interpretation Comments Potassium Lvl (test code = Potassium 5.2 3.5-5.1 Lvl) [facility]2022-06-28 11:17:00 Test Item Value Reference Range Interpretation Comments Chloride Lvl (test code = Chloride Lvl) 93 95-109 [facility]2022-06-28 11:17:00 Test Item Value Reference Range Interpretation Comments CO2 (test code = CO2) 29 24-32 [facility]2022-06-28 11:17:00 Test Item Value Reference Range Interpretation Comments Calcium Lvl (test code = Calcium Lvl) 8.7 8.5-10.5 [place] 852792-06-28 11:17:00 Test Item Value Reference Range Interpretation Comments Total Protein (test code = Total 6.0 6.4-8.4 Protein) [place] 852792-06-28 11:17:00 Test Item Value Reference Range Interpretation Comments Albumin Lvl (test code = Albumin Lvl) 2.6 3.5-5.0 [facility]2022-06-28 11:17:00 Test Item Value Reference Range Interpretation Comments ALT (test code = ALT) 43 See_Comment [Auto mated message] The system which ge nerated this result transmit swathi reference range : <=65. The reference range was not used to interpr et this result as deny l/abnormal. [facility] [id number] 11:17:00 Test Item Value Reference Range Interpretation Comments AST (test code = AST) 35 See_Comment [Auto mated message] The system which ge nerated this result transmit swathi reference range : <=37. The reference range was not used to interpr et this result as deny l/abnormal. [facility] [id number] 11:17:00 Test Item Value Reference Range Interpretation Comments Alk Phos (test code = Alk Phos) 385 39-136 [place] 852792-06-28 11:17:00 Test Item Value Reference Range Interpretation Comments Bili Total (test code = Bili Total) 1.2 0.2-1.3 [place] 852792-06-28 11:17:00 Test Item Value Reference Range Interpretation Comments AGAP (test code = AGAP) 14.2 10.0-20.0 [facility] [id number] 11:17:00 Test Item Value Reference Range Interpretation Comments B/C Ratio (test code = B/C Ratio) 7 1 6-25 [facility] [id number] 11:17:00 Test Item Value Reference Range Interpretation Comments Globulin (test code = Globulin) 3.4 2.7-4.2 [facility] [id number] 11:17:00 Test Item Value Reference Range Interpretation Comments A/G Ratio (test code = A/G Ratio) 0.8 1 0.7-1.6 [facility] [id number] 11:17:00 Test Item Value Reference Range Interpretation Comments eGFR (test code = eGFR) 6 [facility] [id number] 11:17:00 Test Item Value Reference Range Interpretation Comments Magnesium Lvl (test code = Magnesium 1.9 1.8-2.4 Lvl) [facility] [id number] 11:17:00 Test Item Value Reference Range Interpretation Comments LDH (test code = LDH) 297 98-192 [facility] [id number] 11:17:00 Test Item Value Reference Range Interpretation Comments Procalcitonin Lvl (test 0.63 See_Comment [Au tomated message] code = Procalcitonin Lvl) e system which generated this result transmitted ref erence range: <=0.10. The reference range was not used to interpr et this result as normal/abnormal . [facility]ObnvcxcFLEVUDSDDJ0185-87-06 11:17:00 Test Item Value Reference Range Interpretation Comments D-Dimer (test code = D-Dimer) 5.33 [facility] HospitalEidtcrnKGTEAMFMCO7357-88-79 11:17:00 Test Item Value Reference Range Interpretation Comments Hep Bs Ag (test code Negative *NA*(11/25/21 = Hep Bs Ag) 6:17 AM) [facility] HospitalAoevdfwGDYDKCZPQP7558-50-53 11:17:00 Test Item Value Reference Range Interpretation Comments C-REACTIVE PROTEIN (test code = 134.0 C-REACTIVE PROTEIN) [facility] HospitalDfrjaviOUIFAUHDUG4979-30-35 11:17:00 Test Item Value Reference Range Interpretation Comments Interleukin 6 (test code = Interleukin 25.99 6) [facility] [id number] 05:52:00 Test Item Value Reference Range Interpretation Comments RBC product (test code Product available = RBC product) 4(11/25/21 12:52 AM) [facility] [id number] 05:52:00 Test Item Value Reference Range Interpretation Comments RBC product (test code Product available = RBC product) 4(11/25/21 12:52 AM) [facility] [employer] LtdB[facility] CenterPl[facility] [id number] 05:52:00 Test Item Value Reference Range Interpretation Comments RBC product (test code Product available = RBC product) 4(11/25/21 12:52 AM) [facility] [id number] 05:52:00 Test Item Value Reference Range Interpretation Comments RBC product (test code Product available = RBC product) 4(11/25/21 12:52 AM) [facility] [id number] 05:52:00 Test Item Value Reference Range Interpretation Comments RBC product (test code Product available = RBC product) 4(11/25/21 12:52 AM) [facility] [id number] 05:52:00 Test Item Value Reference Range Interpretation Comments RBC product (test code Product available = RBC product) 4(11/25/21 12:52 AM) [facility] [id number] 05:52:00 Test Item Value Reference Range Interpretation Comments RBC product (test code Product available = RBC product) 4(11/25/21 12:52 AM) [facility] [id number] 05:52:00 Test Item Value Reference Range Interpretation Comments RBC product (test code Product available = RBC product) 4(11/25/21 12:52 AM) [facility] TempleFlytlzeDHLZANKFAE1208-53-58 05:43:00 Test Item Value Reference Range Interpretation Comments Coronavirus (COVID-19) Detected MANUEL (test code = 8*ABN*(11/25/21 12:43 Coronavirus (COVID-19) AM) MANUEL) [facility] [id number] 05:43:00 Test Item Value Reference Range Interpretation Comments Coronavirus (COVID-19) Detected MANUEL (test code = 8*ABN*(11/25/21 12:43 Coronavirus (COVID-19) AM) MANUEL) [facility] [id number] 05:43:00 Test Item Value Reference Range Interpretation Comments Coronavirus (COVID-19) Detected MANUEL (test code = 8*ABN*(11/25/21 12:43 Coronavirus (COVID-19) AM) MANUEL) [facility] TempleSbqaqztODOKSKOPEL6084-91-85 05:43:00 Test Item Value Reference Range Interpretation Comments Coronavirus (COVID-19) Detected MANUEL (test code = 8*ABN*(11/25/21 12:43 Coronavirus (COVID-19) AM) MANUEL) [facility] TempleEzifnjcSLSWCWWRXY2699-09-36 05:43:00 Test Item Value Reference Range Interpretation Comments Coronavirus (COVID-19) Detected MANUEL (test code = 8*ABN*(11/25/21 12:43 Coronavirus (COVID-19) AM) MANUEL) [facility] TempleYgtnvxgHLNJWFOQUU6530-61-63 05:43:00 Test Item Value Reference Range Interpretation Comments Coronavirus (COVID-19) Detected MANUEL (test code = 8*ABN*(11/25/21 12:43 Coronavirus (COVID-19) AM) MANUEL) [facility] TempleWsaffqyYRTSUGOFVP5373-37-65 05:43:00 Test Item Value Reference Range Interpretation Comments Coronavirus (COVID-19) Detected MANUEL (test code = 8*ABN*(11/25/21 12:43 Coronavirus (COVID-19) AM) MANUEL) [facility] TempleMfrxomxNGVFWHITYU0298-80-87 05:43:00 Test Item Value Reference Range Interpretation Comments Coronavirus (COVID-19) Detected MANUEL (test code = 8*ABN*(11/25/21 12:43 Coronavirus (COVID-19) AM) MANUEL) [facility] AND [id number] 05:23:00 Test Item Value Reference Range Interpretation Comments Occult Bld Stl (test Negative (11/25/21 12:23 code = Occult Bld Stl) AM) [facility] AND [id number] 05:23:00 Test Item Value Reference Range Interpretation Comments Occult Bld Stl (test Negative (11/25/21 12:23 code = Occult Bld Stl) AM) [facility] AND [id number] 05:23:00 Test Item Value Reference Range Interpretation Comments Occult Bld Stl (test Negative (11/25/21 12:23 code = Occult Bld Stl) AM) [facility] AND [id number] 05:23:00 Test Item Value Reference Range Interpretation Comments Occult Bld Stl (test Negative (11/25/21 12:23 code = Occult Bld Stl) AM) [facility] AND [id number] 05:23:00 Test Item Value Reference Range Interpretation Comments Occult Bld Stl (test Negative (11/25/21 12:23 code = Occult Bld Stl) AM) [facility] AND [id number] 05:23:00 Test Item Value Reference Range Interpretation Comments Occult Bld Stl (test Negative (11/25/21 12:23 code = Occult Bld Stl) AM) [facility] AND [id number] 05:23:00 Test Item Value Reference Range Interpretation Comments Occult Bld Stl (test Negative (11/25/21 12:23 code = Occult Bld Stl) AM) [facility] [employer] [facility] AND [id number] 05:23:00 Test Item Value Reference Range Interpretation Comments Occult Bld Stl (test Negative (11/25/21 12:23 code = Occult Bld Stl) AM) [facility] [employer] [id number] 04:12:00 Test Item Value Reference Range Interpretation Comments ABO/Rh (test code = ABO/Rh) AB POS [facility] [employer] [id number] 04:12:00 Test Item Value Reference Range Interpretation Comments Antibody Scrn (test Negative (11/24/21 code = Antibody Scrn) 11:12 PM) [facility] [employer] [id number] 04:12:00 Test Item Value Reference Range Interpretation Comments Total CK (test code = Total CK) 86 12-191 [facility] [employer] [id number] 04:12:00 Test Item Value Reference Range Interpretation Comments HS Troponin I (test code = HS Troponin 316 I) [facility] [employer]2022-06-28 04:12:00 Test Item Value Reference Range Interpretation Comments Glucose Lvl (test code = Glucose Lvl) 261 70-99 [facility] [employer]2022-06-28 04:12:00 Test Item Value Reference Range Interpretation Comments BUN (test code = BUN) 60 7-22 [facility] [employer]2022-06-28 04:12:00 Test Item Value Reference Range Interpretation Comments Creatinine Lvl (test code = Creatinine 8.49 0.50-1.40 Lvl) [facility] [employer]2022-06-28 04:12:00 Test Item Value Reference Range Interpretation Comments Sodium Lvl (test code = Sodium Lvl) 133 135-145 [facility] [employer]2022-06-28 04:12:00 Test Item Value Reference Range Interpretation Comments Potassium Lvl (test code = Potassium 4.9 3.5-5.1 Lvl) [facility]2022-06-28 04:12:00 Test Item Value Reference Range Interpretation Comments Chloride Lvl (test code = Chloride Lvl) 93 95-109 [place] 852792-06-28 04:12:00 Test Item Value Reference Range Interpretation Comments CO2 (test code = CO2) 31 24-32 [place] 852792-06-28 04:12:00 Test Item Value Reference Range Interpretation Comments Calcium Lvl (test code = Calcium Lvl) 9.1 8.5-10.5 [place] 852792-06-28 04:12:00 Test Item Value Reference Range Interpretation Comments Total Protein (test code = Total 6.8 6.4-8.4 Protein) [place] [address]-06-28 04:12:00 Test Item Value Reference Range Interpretation Comments Albumin Lvl (test code = Albumin Lvl) 2.5 3.5-5.0 [place] 852792-06-28 04:12:00 Test Item Value Reference Range Interpretation Comments ALT (test code = ALT) 51 See_Comment [Auto mated message] The system which ge nerated this result transmit swathi reference range : <=65. The reference range was not used to interpr et this result as deny l/abnormal. [place] 852792-06-28 04:12:00 Test Item Value Reference Range Interpretation Comments AST (test code = AST) 36 See_Comment [Auto mated message] The system which ge nerated this result transmit swathi reference range : <=37. The reference range was not used to interpr et this result as deny l/abnormal. [place] 852792-06-28 04:12:00 Test Item Value Reference Range Interpretation Comments Alk Phos (test code = Alk Phos) 383 39-136 [place] 852792-06-28 04:12:00 Test Item Value Reference Range Interpretation Comments Bili Total (test code = Bili Total) 1.1 0.2-1.3 [place] [address]-06-28 04:12:00 Test Item Value Reference Range Interpretation Comments AGAP (test code = AGAP) 13.9 10.0-20.0 [place] [address]-06-28 04:12:00 Test Item Value Reference Range Interpretation Comments B/C Ratio (test code = B/C Ratio) 7 1 6-25 [place] [address]-06-28 04:12:00 Test Item Value Reference Range Interpretation Comments Globulin (test code = Globulin) 4.3 2.7-4.2 [place] 852792-06-28 04:12:00 Test Item Value Reference Range Interpretation Comments A/G Ratio (test code = A/G Ratio) 0.6 1 0.7-1.6 [place] 852792-06-28 04:12:00 Test Item Value Reference Range Interpretation Comments eGFR (test code = eGFR) 5 [place] 852792-06-28 04:12:00 Test Item Value Reference Range Interpretation Comments Procalcitonin Lvl (test 0.69 See_Comment [Au tomated message] code = Procalcitonin Lvl) Th e system which generated this result transmitted ref erence range: <=0.10. The reference range was not used to interpr et this result as normal/abnormal . [place] 441032-06-28 04:12:00 Test Item Value Reference Range Interpretation Comments WBC (test code = WBC) 4.1 3.7-10.4 [place] 441032-06-28 04:12:00 Test Item Value Reference Range Interpretation Comments RBC (test code = RBC) 1.78 4.70-6.10 [place] 441032-06-28 04:12:00 Test Item Value Reference Range Interpretation Comments Hgb (test code = Hgb) 6.5 14.0-18.0 [place] 441032-06-28 04:12:00 Test Item Value Reference Range Interpretation Comments Hct (test code = Hct) 19.5 42.0-54.0 [place] 441032-06-28 04:12:00 Test Item Value Reference Range Interpretation Comments MCV (test code = MCV) 110.0 80.0-94.0 [place] 441032-06-28 04:12:00 Test Item Value Reference Range Interpretation Comments MCH (test code = MCH) 36.5 pg 27.0-31.0 [place] 441032-06-28 04:12:00 Test Item Value Reference Range Interpretation Comments MCHC (test code = MCHC) 33.2 32.0-36.0 [place] 441032-06-28 04:12:00 Test Item Value Reference Range Interpretation Comments RDW (test code = RDW) 19.0 11.5-14.5 [facility]ZenvozxOISCUETTFB8467-87-24 04:12:00 Test Item Value Reference Range Interpretation Comments Platelet (test code = Platelet) 180 133-450 [place] 441032-06-28 04:12:00 Test Item Value Reference Range Interpretation Comments MPV (test code = MPV) 8.3 7.4-10.4 [place] 441032-06-28 04:12:00 Test Item Value Reference Range Interpretation Comments PTT (test code = PTT) 45.4 s 22.9-35.8 [place] 441032-06-28 04:12:00 Test Item Value Reference Range Interpretation Comments PT (test code = PT) 19.1 s 12.0-14.7 [place] [address]-06-28 04:12:00 Test Item Value Reference Range Interpretation Comments INR (test code = INR) 1.62 1 0.85-1.17 [place] 441032-06-28 04:12:00 Test Item Value Reference Range Interpretation Comments RBC Morph (test code = See Note (11/24/21 RBC Morph) 11:12 PM) [facility] CenterCsdqcbhAWAYKNVHTI2562-38-53 04:12:00 Test Item Value Reference Range Interpretation Comments Plt Morph (test code = Normal (11/24/21 11:12 Plt Morph) PM) [facility] CenterEdnuqwvXGHZLARYHG2958-38-31 04:12:00 Test Item Value Reference Range Interpretation Comments Segs (test code = Segs) 72.2 45.0-75.0 [facility] CenterTyhpndsEPUHFDJRCW0301-15-38 04:12:00 Test Item Value Reference Range Interpretation Comments Lymphocytes (test code = Lymphocytes) 16.2 20.0-40.0 [place] 441032-06-28 04:12:00 Test Item Value Reference Range Interpretation Comments Monocytes (test code = Monocytes) 8.0 2.0-12.0 [place] [address]-06-28 04:12:00 Test Item Value Reference Range Interpretation Comments Eosinophils (test code = 2.7 See_Comment [A utomated message] The Eosinophils) system which ge nerated this result tra nsmitted reference range : <=4.0. The reference r samantha was not used to int erpret this result as normal/abnormal . [facility] CenterPulqgnsOGLLYHGQNA7510-79-56 04:12:00 Test Item Value Reference Range Interpretation Comments Basophils (test code = 0.9 See_Comment [Aut omated message] The Basophils) system which ge nerated this result tra nsmitted reference range : <=1.0. The reference r samantha was not used to int erpret this result as normal/abnormal . [facility] CenterUvkonzoWPTVBYAKJP5458-05-04 04:12:00 Test Item Value Reference Range Interpretation Comments Neutrophils # (test code = Neutrophils 2.9 1.5-8.1 #) [facility] CenterOgvjjuhKHPVTCMPCK2045-83-23 04:12:00 Test Item Value Reference Range Interpretation Comments Lymphocytes # (test code = Lymphocytes 0.7 1.0-5.5 #) [facility] CenterBllczjlTQDGZJTPPS2214-08-55 04:12:00 Test Item Value Reference Range Interpretation Comments Monocytes # (test code 0.3 See_Comment [Aut omated message] The = Monocytes #) system which generated this result tra nsmitted reference range : <=0.8. The reference r samantha was not used to int erpret this result as normal/abnormal . [facility] CenterHfocjjgXKAAKFGBYT2837-49-58 04:12:00 Test Item Value Reference Range Interpretation Comments Eosinophils # (test code 0.1 See_Comment [A utomated message] The = Eosinophils #) system whic h generated this result tra nsmitted reference range : <=0.5. The reference r samantha was not used to int erpret this result as normal/abnormal . [facility] CenterVkimapiKTTQWECKOW2988-52-53 04:12:00 Test Item Value Reference Range Interpretation Comments Anisocyte (test code = 1+ *ABN*(11/24/21 Anisocyte) 11:12 PM) [facility] CenterYnddydxJTADETDTHL1445-31-23 04:12:00 Test Item Value Reference Range Interpretation Comments Macrocyte (test code = 1+ *ABN*(11/24/21 Macrocyte) 11:12 PM) [facility] CenterLtemthzVXEJJJRVGI8230-47-33 04:12:00 Test Item Value Reference Range Interpretation Comments Microcyte (test code = 1+ *ABN*(11/24/21 Microcyte) 11:12 PM) [facility] [id number] 04:12:00 Test Item Value Reference Range Interpretation Comments ABO/Rh (test code = ABO/Rh) AB POS [facility] HospitalCyalume TechnologiesOOD BANK [id number] 04:12:00 Test Item Value Reference Range Interpretation Comments Antibody Scrn (test Negative (11/24/21 code = Antibody Scrn) 11:12 PM) [facility] [employer] [id number] 04:12:00 Test Item Value Reference Range Interpretation Comments Total CK (test code = Total CK) 86 12-191 [facility] HospitalGreenBiz GroupAC [id number] 04:12:00 Test Item Value Reference Range Interpretation Comments HS Troponin I (test code = HS Troponin 316 I) [facility] [employer] [id number] 04:12:00 Test Item Value Reference Range Interpretation Comments Glucose Lvl (test code = Glucose Lvl) 261 70-99 [facility] [employer] [id number] 04:12:00 Test Item Value Reference Range Interpretation Comments BUN (test code = BUN) 60 7-22 [facility] [employer] [id number] 04:12:00 Test Item Value Reference Range Interpretation Comments Creatinine Lvl (test code = Creatinine 8.49 0.50-1.40 Lvl) [facility] [employer] [id number] 04:12:00 Test Item Value Reference Range Interpretation Comments Sodium Lvl (test code = Sodium Lvl) 133 135-145 [facility] [employer] [id number] 04:12:00 Test Item Value Reference Range Interpretation Comments Potassium Lvl (test code = Potassium 4.9 3.5-5.1 Lvl) [facility] [employer] [id number] 04:12:00 Test Item Value Reference Range Interpretation Comments Chloride Lvl (test code = Chloride Lvl) 93 95-109 [facility] [employer] [id number] 04:12:00 Test Item Value Reference Range Interpretation Comments CO2 (test code = CO2) 31 24-32 [facility] [employer] [id number] 04:12:00 Test Item Value Reference Range Interpretation Comments Calcium Lvl (test code = Calcium Lvl) 9.1 8.5-10.5 [facility] [employer] [id number] 04:12:00 Test Item Value Reference Range Interpretation Comments Total Protein (test code = Total 6.8 6.4-8.4 Protein) [place] 852792-06-28 04:12:00 Test Item Value Reference Range Interpretation Comments Albumin Lvl (test code = Albumin Lvl) 2.5 3.5-5.0 [place] 852792-06-28 04:12:00 Test Item Value Reference Range Interpretation Comments ALT (test code = ALT) 51 See_Comment [Auto mated message] The system which ge nerated this result transmit swathi reference range : <=65. The reference range was not used to interpr et this result as deny l/abnormal. [place] 852792-06-28 04:12:00 Test Item Value Reference Range Interpretation Comments AST (test code = AST) 36 See_Comment [Auto mated message] The system which ge nerated this result transmit swathi reference range : <=37. The reference range was not used to interpr et this result as deny l/abnormal. [place] 852792-06-28 04:12:00 Test Item Value Reference Range Interpretation Comments Alk Phos (test code = Alk Phos) 383 39-136 [place] 852792-06-28 04:12:00 Test Item Value Reference Range Interpretation Comments Bili Total (test code = Bili Total) 1.1 0.2-1.3 [place] 852792-06-28 04:12:00 Test Item Value Reference Range Interpretation Comments AGAP (test code = AGAP) 13.9 10.0-20.0 [place] [address]-06-28 04:12:00 Test Item Value Reference Range Interpretation Comments B/C Ratio (test code = B/C Ratio) 7 1 6-25 [place] 852792-06-28 04:12:00 Test Item Value Reference Range Interpretation Comments Globulin (test code = Globulin) 4.3 2.7-4.2 [place] [address]-06-28 04:12:00 Test Item Value Reference Range Interpretation Comments A/G Ratio (test code = A/G Ratio) 0.6 1 0.7-1.6 [place] [address]-06-28 04:12:00 Test Item Value Reference Range Interpretation Comments eGFR (test code = eGFR) 5 [place] 852792-06-28 04:12:00 Test Item Value Reference Range Interpretation Comments Procalcitonin Lvl (test 0.69 See_Comment [Au tomated message] code = Procalcitonin Lvl) Th e system which generated this result transmitted ref erence range: <=0.10. The reference range was not used to interpr et this result as normal/abnormal . [facility] CenterLiaegrnZTKOTKVBZO9921-81-31 04:12:00 Test Item Value Reference Range Interpretation Comments WBC (test code = WBC) 4.1 3.7-10.4 [place] 441032-06-28 04:12:00 Test Item Value Reference Range Interpretation Comments RBC (test code = RBC) 1.78 4.70-6.10 [place] 441032-06-28 04:12:00 Test Item Value Reference Range Interpretation Comments Hgb (test code = Hgb) 6.5 14.0-18.0 [place] 441032-06-28 04:12:00 Test Item Value Reference Range Interpretation Comments Hct (test code = Hct) 19.5 42.0-54.0 [place] 441032-06-28 04:12:00 Test Item Value Reference Range Interpretation Comments MCV (test code = MCV) 110.0 80.0-94.0 [facility] CenterNaqxtbpRFUGXHTEVX6030-39-84 04:12:00 Test Item Value Reference Range Interpretation Comments MCH (test code = MCH) 36.5 pg 27.0-31.0 [facility] CenterRnlelpsKAVQXGQGJG1851-24-26 04:12:00 Test Item Value Reference Range Interpretation Comments MCHC (test code = MCHC) 33.2 32.0-36.0 [facility] CenterDyxwnalMMZIVMGHUG5519-83-60 04:12:00 Test Item Value Reference Range Interpretation Comments RDW (test code = RDW) 19.0 11.5-14.5 [place] 441032-06-28 04:12:00 Test Item Value Reference Range Interpretation Comments Platelet (test code = Platelet) 180 133-450 [facility] CenterXqyiydnVVHJKWEHWK3645-90-91 04:12:00 Test Item Value Reference Range Interpretation Comments MPV (test code = MPV) 8.3 7.4-10.4 [place] 441032-06-28 04:12:00 Test Item Value Reference Range Interpretation Comments PTT (test code = PTT) 45.4 s 22.9-35.8 [place] 441032-06-28 04:12:00 Test Item Value Reference Range Interpretation Comments PT (test code = PT) 19.1 s 12.0-14.7 [place] 441032-06-28 04:12:00 Test Item Value Reference Range Interpretation Comments INR (test code = INR) 1.62 1 0.85-1.17 [place] 441032-06-28 04:12:00 Test Item Value Reference Range Interpretation Comments RBC Morph (test code = See Note (11/24/21 RBC Morph) 11:12 PM) [facility] CenterDboymupSHDHSOCATD4586-06-76 04:12:00 Test Item Value Reference Range Interpretation Comments Plt Morph (test code = Normal (11/24/21 11:12 Plt Morph) PM) [place] 441032-06-28 04:12:00 Test Item Value Reference Range Interpretation Comments Segs (test code = Segs) 72.2 45.0-75.0 [place] 441032-06-28 04:12:00 Test Item Value Reference Range Interpretation Comments Lymphocytes (test code = Lymphocytes) 16.2 20.0-40.0 [facility] CenterWknvyfyNJZIQFWGXD0896-21-01 04:12:00 Test Item Value Reference Range Interpretation Comments Monocytes (test code = Monocytes) 8.0 2.0-12.0 [facility] CenterYqjdiswSIXJVFQNME0933-50-97 04:12:00 Test Item Value Reference Range Interpretation Comments Eosinophils (test code = 2.7 See_Comment [A utomated message] The Eosinophils) system which ge nerated this result tra nsmitted reference range : <=4.0. The reference r samantha was not used to int erpret this result as normal/abnormal . [facility] CenterPdvzngoKXFRARGHUV7070-69-13 04:12:00 Test Item Value Reference Range Interpretation Comments Basophils (test code = 0.9 See_Comment [Aut omated message] The Basophils) system which ge nerated this result tra nsmitted reference range : <=1.0. The reference r samantha was not used to int erpret this result as normal/abnormal . [facility] CenterQrbinmuJEONXDYJLJ9793-19-21 04:12:00 Test Item Value Reference Range Interpretation Comments Neutrophils # (test code = Neutrophils 2.9 1.5-8.1 #) [facility]MpmcmqaWCBYGYBOMX7764-77-68 04:12:00 Test Item Value Reference Range Interpretation Comments Lymphocytes # (test code = Lymphocytes 0.7 1.0-5.5 #) [facility] CenterKxahvnnARYSGJQWAU3289-05-25 04:12:00 Test Item Value Reference Range Interpretation Comments Monocytes # (test code 0.3 See_Comment [Aut omated message] The = Monocytes #) system which generated this result tra nsmitted reference range : <=0.8. The reference r samantha was not used to int erpret this result as normal/abnormal . [facility]WestCkaehpnYXQCLYJCDN1121-09-62 04:12:00 Test Item Value Reference Range Interpretation Comments Eosinophils # (test code 0.1 See_Comment [A utomated message] The = Eosinophils #) system whic h generated this result tra nsmitted reference range : <=0.5. The reference r samantha was not used to int erpret this result as normal/abnormal . [facility]WestDuissqiESWUXBKBKE8116-36-89 04:12:00 Test Item Value Reference Range Interpretation Comments Anisocyte (test code = 1+ *ABN*(11/24/21 Anisocyte) 11:12 PM) [facility]GrlqejdPBTLJZCMPE8744-77-69 04:12:00 Test Item Value Reference Range Interpretation Comments Macrocyte (test code = 1+ *ABN*(11/24/21 Macrocyte) 11:12 PM) [facility]WestFzadkgdVQJHIZMZGX6132-70-50 04:12:00 Test Item Value Reference Range Interpretation Comments Microcyte (test code = 1+ *ABN*(11/24/21 Microcyte) 11:12 PM) [facility]Wellness[facility] [id number] 04:12:00 Test Item Value Reference Range Interpretation Comments ABO/Rh (test code = ABO/Rh) AB POS [facility]Well[facility] [id number] 04:12:00 Test Item Value Reference Range Interpretation Comments Antibody Scrn (test Negative (11/24/21 code = Antibody Scrn) 11:12 PM) [facility] HospitalAventura2022-[facility]-28 04:12:00 Test Item Value Reference Range Interpretation Comments Total CK (test code = Total CK) 86 12-191 [facility] HospitalMediaShareLIV[facility] FZJCVPJ3434-07-27 04:12:00 Test Item Value Reference Range Interpretation Comments HS Troponin I (test code = HS Troponin 316 I) [place] 852792-06-28 04:12:00 Test Item Value Reference Range Interpretation Comments Glucose Lvl (test code = Glucose Lvl) 261 70-99 [place] 852792-06-28 04:12:00 Test Item Value Reference Range Interpretation Comments BUN (test code = BUN) 60 7-22 [place] 852792-06-28 04:12:00 Test Item Value Reference Range Interpretation Comments Creatinine Lvl (test code = Creatinine 8.49 0.50-1.40 Lvl) [place] 852792-06-28 04:12:00 Test Item Value Reference Range Interpretation Comments Sodium Lvl (test code = Sodium Lvl) 133 135-145 [place] 852792-06-28 04:12:00 Test Item Value Reference Range Interpretation Comments Potassium Lvl (test code = Potassium 4.9 3.5-5.1 Lvl) [place] 852792-06-28 04:12:00 Test Item Value Reference Range Interpretation Comments Chloride Lvl (test code = Chloride Lvl) 93 95-109 [place] 852792-06-28 04:12:00 Test Item Value Reference Range Interpretation Comments CO2 (test code = CO2) 31 24-32 [place] 852792-06-28 04:12:00 Test Item Value Reference Range Interpretation Comments Calcium Lvl (test code = Calcium Lvl) 9.1 8.5-10.5 [place] 852792-06-28 04:12:00 Test Item Value Reference Range Interpretation Comments Total Protein (test code = Total 6.8 6.4-8.4 Protein) [place] 852792-06-28 04:12:00 Test Item Value Reference Range Interpretation Comments Albumin Lvl (test code = Albumin Lvl) 2.5 3.5-5.0 [place] 852792-06-28 04:12:00 Test Item Value Reference Range Interpretation Comments ALT (test code = ALT) 51 See_Comment [Auto mated message] The system which ge nerated this result transmit swathi reference range : <=65. The reference range was not used to interpr et this result as deny l/abnormal. [place] 852792-06-28 04:12:00 Test Item Value Reference Range Interpretation Comments AST (test code = AST) 36 See_Comment [Auto mated message] The system which ge nerated this result transmit swathi reference range : <=37. The reference range was not used to interpr et this result as deny l/abnormal. [facility] [employer] [id number] 04:12:00 Test Item Value Reference Range Interpretation Comments Alk Phos (test code = Alk Phos) 383 39-136 [facility] HospitalChipidea Microelect[employer]ónica [id number] 04:12:00 Test Item Value Reference Range Interpretation Comments Bili Total (test code = Bili Total) 1.1 0.2-1.3 [facility] [employer] [employer] [id number] 04:12:00 Test Item Value Reference Range Interpretation Comments AGAP (test code = AGAP) 13.9 10.0-20.0 [facility] [employer] [id number] 04:12:00 Test Item Value Reference Range Interpretation Comments B/C Ratio (test code = B/C Ratio) 7 1 6-25 [facility] [id number] 04:12:00 Test Item Value Reference Range Interpretation Comments Globulin (test code = Globulin) 4.3 2.7-4.2 [facility] [employer] [id number] 04:12:00 Test Item Value Reference Range Interpretation Comments A/G Ratio (test code = A/G Ratio) 0.6 1 0.7-1.6 [facility]Chip[facility] [id number] 04:12:00 Test Item Value Reference Range Interpretation Comments eGFR (test code = eGFR) 5 [facility]Chip[facility] [id number] 04:12:00 Test Item Value Reference Range Interpretation Comments Procalcitonin Lvl (test 0.69 See_Comment [Au tomated message] code = Procalcitonin Lvl) Th e system which generated this result transmitted ref erence range: <=0.10. The reference range was not used to interpr et this result as normal/abnormal . [facility]WBK0508[facility] 04:12:00 Test Item Value Reference Range Interpretation Comments WBC (test code = WBC) 4.1 3.7-10.4 [facility] HospitalAgyqxieAIXUZZHWDC1220-70-70 04:12:00 Test Item Value Reference Range Interpretation Comments RBC (test code = RBC) 1.78 4.70-6.10 [facility]AgiakkdGKCXHPOOZL3365-44-55 04:12:00 Test Item Value Reference Range Interpretation Comments Hgb (test code = Hgb) 6.5 14.0-18.0 [place] 441032-06-28 04:12:00 Test Item Value Reference Range Interpretation Comments Hct (test code = Hct) 19.5 42.0-54.0 [facility] CenterXshwggrTSDQQDPDCW3394-61-91 04:12:00 Test Item Value Reference Range Interpretation Comments MCV (test code = MCV) 110.0 80.0-94.0 [facility] CenterLlhtstdAUJDQQJQJD0648-76-63 04:12:00 Test Item Value Reference Range Interpretation Comments MCH (test code = MCH) 36.5 pg 27.0-31.0 [facility] CenterDjmnyqoHCIZLRRFTW1172-12-75 04:12:00 Test Item Value Reference Range Interpretation Comments MCHC (test code = MCHC) 33.2 32.0-36.0 [facility] CenterSiwwfeiUJAPKCJHDK4177-30-57 04:12:00 Test Item Value Reference Range Interpretation Comments RDW (test code = RDW) 19.0 11.5-14.5 [place] 441032-06-28 04:12:00 Test Item Value Reference Range Interpretation Comments Platelet (test code = Platelet) 180 133-450 [facility] CenterVnbhaijBVWXURTOGM5403-15-84 04:12:00 Test Item Value Reference Range Interpretation Comments MPV (test code = MPV) 8.3 7.4-10.4 [place] 441032-06-28 04:12:00 Test Item Value Reference Range Interpretation Comments PTT (test code = PTT) 45.4 s 22.9-35.8 [facility] CenterOtfsxezDIVZTOXAZQ8508-30-09 04:12:00 Test Item Value Reference Range Interpretation Comments PT (test code = PT) 19.1 s 12.0-14.7 [place] 441032-06-28 04:12:00 Test Item Value Reference Range Interpretation Comments INR (test code = INR) 1.62 1 0.85-1.17 [place] 441032-06-28 04:12:00 Test Item Value Reference Range Interpretation Comments RBC Morph (test code = See Note (11/24/21 RBC Morph) 11:12 PM) [facility] CenterKaqqvasEFEGESHPDG2277-07-50 04:12:00 Test Item Value Reference Range Interpretation Comments Plt Morph (test code = Normal (11/24/21 11:12 Plt Morph) PM) [facility] CenterFmmirprJPBVUSCHHT9124-42-84 04:12:00 Test Item Value Reference Range Interpretation Comments Segs (test code = Segs) 72.2 45.0-75.0 [facility] CenterRvjbzhaLNRMZWQKCQ5841-92-56 04:12:00 Test Item Value Reference Range Interpretation Comments Lymphocytes (test code = Lymphocytes) 16.2 20.0-40.0 [facility] CenterYxgqwmgBLPJJAVKOB5865-57-53 04:12:00 Test Item Value Reference Range Interpretation Comments Monocytes (test code = Monocytes) 8.0 2.0-12.0 [facility] CenterDmxvtjnTCGKHJGOWN0898-49-01 04:12:00 Test Item Value Reference Range Interpretation Comments Eosinophils (test code = 2.7 See_Comment [A utomated message] The Eosinophils) system which ge nerated this result tra nsmitted reference range : <=4.0. The reference r samantha was not used to int erpret this result as normal/abnormal . [facility] CenterZuxvffcSAMTPATCCY3074-27-67 04:12:00 Test Item Value Reference Range Interpretation Comments Basophils (test code = 0.9 See_Comment [Aut omated message] The Basophils) system which ge nerated this result tra nsmitted reference range : <=1.0. The reference r samantha was not used to int erpret this result as normal/abnormal . [facility] CenterQalxcocGUGUAOVVOU4438-33-83 04:12:00 Test Item Value Reference Range Interpretation Comments Neutrophils # (test code = Neutrophils 2.9 1.5-8.1 #) [facility] CenterDypqebbQLUHPMGXRK3073-09-22 04:12:00 Test Item Value Reference Range Interpretation Comments Lymphocytes # (test code = Lymphocytes 0.7 1.0-5.5 #) [place] 441032-06-28 04:12:00 Test Item Value Reference Range Interpretation Comments Monocytes # (test code 0.3 See_Comment [Aut omated message] The = Monocytes #) system which generated this result tra nsmitted reference range : <=0.8. The reference r samantha was not used to int erpret this result as normal/abnormal . [facility] HospitalYwawtuxSDKZAFBPJP3249-74-08 04:12:00 Test Item Value Reference Range Interpretation Comments Eosinophils # (test code 0.1 See_Comment [A utomated message] The = Eosinophils #) system whic h generated this result tra nsmitted reference range : <=0.5. The reference r samantha was not used to int erpret this result as normal/abnormal . [facility] HospitalJvimgfqLCAXSNYJFL1933-19-78 04:12:00 Test Item Value Reference Range Interpretation Comments Anisocyte (test code = 1+ *ABN*(11/24/21 Anisocyte) 11:12 PM) [facility] HospitalHcrxvpoPEUFMSMAOH3115-45-00 04:12:00 Test Item Value Reference Range Interpretation Comments Macrocyte (test code = 1+ *ABN*(11/24/21 Macrocyte) 11:12 PM) [facility] HospitalNdouiffWZENRXCYPW4090-50-14 04:12:00 Test Item Value Reference Range Interpretation Comments Microcyte (test code = 1+ *ABN*(11/24/21 Microcyte) 11:12 PM) [facility] [employer] [id number] 04:12:00 Test Item Value Reference Range Interpretation Comments ABO/Rh (test code = ABO/Rh) AB POS [facility] [employer] [id number] 04:12:00 Test Item Value Reference Range Interpretation Comments Antibody Scrn (test Negative (11/24/21 code = Antibody Scrn) 11:12 PM) [facility] HospitalNarr[facility] [id number] 04:12:00 Test Item Value Reference Range Interpretation Comments Total CK (test code = Total CK) 86 12-191 [facility] HospitalN[facility] [id number] 04:12:00 Test Item Value Reference Range Interpretation Comments HS Troponin I (test code = HS Troponin 316 I) [facility] [employer] [id number] 04:12:00 Test Item Value Reference Range Interpretation Comments Glucose Lvl (test code = Glucose Lvl) 261 70-99 [facility] [employer]2022-06-28 04:12:00 Test Item Value Reference Range Interpretation Comments BUN (test code = BUN) 60 7-22 [facility] [employer]2022-06-28 04:12:00 Test Item Value Reference Range Interpretation Comments Creatinine Lvl (test code = Creatinine 8.49 0.50-1.40 Lvl) [place] 852792-06-28 04:12:00 Test Item Value Reference Range Interpretation Comments Sodium Lvl (test code = Sodium Lvl) 133 135-145 [place] 852792-06-28 04:12:00 Test Item Value Reference Range Interpretation Comments Potassium Lvl (test code = Potassium 4.9 3.5-5.1 Lvl) [place] 852792-06-28 04:12:00 Test Item Value Reference Range Interpretation Comments Chloride Lvl (test code = Chloride Lvl) 93 95-109 [place] [address]-06-28 04:12:00 Test Item Value Reference Range Interpretation Comments CO2 (test code = CO2) 31 24-32 [place] 852792-06-28 04:12:00 Test Item Value Reference Range Interpretation Comments Calcium Lvl (test code = Calcium Lvl) 9.1 8.5-10.5 [place] 852792-06-28 04:12:00 Test Item Value Reference Range Interpretation Comments Total Protein (test code = Total 6.8 6.4-8.4 Protein) [place] 852792-06-28 04:12:00 Test Item Value Reference Range Interpretation Comments Albumin Lvl (test code = Albumin Lvl) 2.5 3.5-5.0 [place] 852792-06-28 04:12:00 Test Item Value Reference Range Interpretation Comments ALT (test code = ALT) 51 See_Comment [Auto mated message] The system which ge nerated this result transmit swathi reference range : <=65. The reference range was not used to interpr et this result as deny l/abnormal. [place] 852792-06-28 04:12:00 Test Item Value Reference Range Interpretation Comments AST (test code = AST) 36 See_Comment [Auto mated message] The system which ge nerated this result transmit swathi reference range : <=37. The reference range was not used to interpr et this result as deny l/abnormal. [place] [address]-06-28 04:12:00 Test Item Value Reference Range Interpretation Comments Alk Phos (test code = Alk Phos) 383 39-136 [place] 852792-06-28 04:12:00 Test Item Value Reference Range Interpretation Comments Bili Total (test code = Bili Total) 1.1 0.2-1.3 [place] 852792-06-28 04:12:00 Test Item Value Reference Range Interpretation Comments AGAP (test code = AGAP) 13.9 10.0-20.0 [place] 852792-06-28 04:12:00 Test Item Value Reference Range Interpretation Comments B/C Ratio (test code = B/C Ratio) 7 1 6-25 [place] 852792-06-28 04:12:00 Test Item Value Reference Range Interpretation Comments Globulin (test code = Globulin) 4.3 2.7-4.2 [place] 852792-06-28 04:12:00 Test Item Value Reference Range Interpretation Comments A/G Ratio (test code = A/G Ratio) 0.6 1 0.7-1.6 [place] 852792-06-28 04:12:00 Test Item Value Reference Range Interpretation Comments eGFR (test code = eGFR) 5 [place] 852792-06-28 04:12:00 Test Item Value Reference Range Interpretation Comments Procalcitonin Lvl (test 0.69 See_Comment [Au tomated message] code = Procalcitonin Lvl) Th e system which generated this result transmitted ref erence range: <=0.10. The reference range was not used to interpr et this result as normal/abnormal . [place] 441032-06-28 04:12:00 Test Item Value Reference Range Interpretation Comments WBC (test code = WBC) 4.1 3.7-10.4 [place] 441032-06-28 04:12:00 Test Item Value Reference Range Interpretation Comments RBC (test code = RBC) 1.78 4.70-6.10 [place] 441032-06-28 04:12:00 Test Item Value Reference Range Interpretation Comments Hgb (test code = Hgb) 6.5 14.0-18.0 [place] 441032-06-28 04:12:00 Test Item Value Reference Range Interpretation Comments Hct (test code = Hct) 19.5 42.0-54.0 [place] 441032-06-28 04:12:00 Test Item Value Reference Range Interpretation Comments MCV (test code = MCV) 110.0 80.0-94.0 [facility] CenterLmbmyudXJNOBWHDWA6338-95-00 04:12:00 Test Item Value Reference Range Interpretation Comments MCH (test code = MCH) 36.5 pg 27.0-31.0 [facility] CenterVdfnnunGWRLTPCFXY5803-38-51 04:12:00 Test Item Value Reference Range Interpretation Comments MCHC (test code = MCHC) 33.2 32.0-36.0 [facility] CenterTvvonsmLEXISRWEDJ9416-28-77 04:12:00 Test Item Value Reference Range Interpretation Comments RDW (test code = RDW) 19.0 11.5-14.5 [facility] CenterBlhupdmMKDCVLTYIW4930-68-04 04:12:00 Test Item Value Reference Range Interpretation Comments Platelet (test code = Platelet) 180 133-450 [facility] CenterOenpjviQNYNWOQIKI1254-39-42 04:12:00 Test Item Value Reference Range Interpretation Comments MPV (test code = MPV) 8.3 7.4-10.4 [facility] CenterRxfeggjXOOVHOTVUO0839-15-74 04:12:00 Test Item Value Reference Range Interpretation Comments PTT (test code = PTT) 45.4 s 22.9-35.8 [facility] CenterAavinooXFAEBCRYJZ5537-87-17 04:12:00 Test Item Value Reference Range Interpretation Comments PT (test code = PT) 19.1 s 12.0-14.7 [facility] CenterJxdyjfuMKLPKNHETW6289-67-50 04:12:00 Test Item Value Reference Range Interpretation Comments INR (test code = INR) 1.62 1 0.85-1.17 [facility] CenterKfwyefrJRMGILIFFE1264-26-27 04:12:00 Test Item Value Reference Range Interpretation Comments RBC Morph (test code = See Note (11/24/21 RBC Morph) 11:12 PM) [facility] CenterKftfnkaWTAOVKHFDQ6073-14-57 04:12:00 Test Item Value Reference Range Interpretation Comments Plt Morph (test code = Normal (11/24/21 11:12 Plt Morph) PM) [facility] CenterOiukkqdXXQNDVYDFX2285-26-72 04:12:00 Test Item Value Reference Range Interpretation Comments Segs (test code = Segs) 72.2 45.0-75.0 [facility] CenterMbybgixLBDOHZORLS0633-75-74 04:12:00 Test Item Value Reference Range Interpretation Comments Lymphocytes (test code = Lymphocytes) 16.2 20.0-40.0 [place] 441032-06-28 04:12:00 Test Item Value Reference Range Interpretation Comments Monocytes (test code = Monocytes) 8.0 2.0-12.0 [facility] CenterRihzlyoYYKYGLKQFF7686-04-04 04:12:00 Test Item Value Reference Range Interpretation Comments Eosinophils (test code = 2.7 See_Comment [A utomated message] The Eosinophils) system which ge nerated this result tra nsmitted reference range : <=4.0. The reference r samantha was not used to int erpret this result as normal/abnormal . [facility] CenterVbvvlaaTFOXMZZYTH1233-08-59 04:12:00 Test Item Value Reference Range Interpretation Comments Basophils (test code = 0.9 See_Comment [Aut omated message] The Basophils) system which ge nerated this result tra nsmitted reference range : <=1.0. The reference r samantha was not used to int erpret this result as normal/abnormal . [facility] CenterXuzabdzWTEEXCWFXH1076-42-63 04:12:00 Test Item Value Reference Range Interpretation Comments Neutrophils # (test code = Neutrophils 2.9 1.5-8.1 #) [facility] CenterZmpfaprYBVAZCCAMI0869-10-18 04:12:00 Test Item Value Reference Range Interpretation Comments Lymphocytes # (test code = Lymphocytes 0.7 1.0-5.5 #) [facility] CenterGaqpcurYKYCNIOVNO6524-29-20 04:12:00 Test Item Value Reference Range Interpretation Comments Monocytes # (test code 0.3 See_Comment [Aut omated message] The = Monocytes #) system which generated this result tra nsmitted reference range : <=0.8. The reference r samantha was not used to int erpret this result as normal/abnormal . [place] 441032-06-28 04:12:00 Test Item Value Reference Range Interpretation Comments Eosinophils # (test code 0.1 See_Comment [A utomated message] The = Eosinophils #) system whic h generated this result tra nsmitted reference range : <=0.5. The reference r samantha was not used to int erpret this result as normal/abnormal . [place] 441032-06-28 04:12:00 Test Item Value Reference Range Interpretation Comments Anisocyte (test code = 1+ *ABN*(11/24/21 Anisocyte) 11:12 PM) [facility] HospitalSakzowyWHJFYFBMWD6557-10-39 04:12:00 Test Item Value Reference Range Interpretation Comments Macrocyte (test code = 1+ *ABN*(11/24/21 Macrocyte) 11:12 PM) [facility] HospitalQjooghxKDRUVGRCTO5843-25-76 04:12:00 Test Item Value Reference Range Interpretation Comments Microcyte (test code = 1+ *ABN*(11/24/21 Microcyte) 11:12 PM) [facility] [employer] [id number] 04:12:00 Test Item Value Reference Range Interpretation Comments ABO/Rh (test code = ABO/Rh) AB POS [facility] [employer] [id number] 04:12:00 Test Item Value Reference Range Interpretation Comments Antibody Scrn (test Negative (11/24/21 code = Antibody Scrn) 11:12 PM) [facility] HospitalNarr[facility] HTNIJQQ0859-91-44 04:12:00 Test Item Value Reference Range Interpretation Comments Total CK (test code = Total CK) 86 12-191 [facility] HospitalAventura2022-[facility]-28 04:12:00 Test Item Value Reference Range Interpretation Comments HS Troponin I (test code = HS Troponin 316 I) [facility] [employer]2022-06-28 04:12:00 Test Item Value Reference Range Interpretation Comments Glucose Lvl (test code = Glucose Lvl) 261 70-99 [facility] [employer]2022-06-28 04:12:00 Test Item Value Reference Range Interpretation Comments BUN (test code = BUN) 60 7-22 [facility] [employer]2022-06-28 04:12:00 Test Item Value Reference Range Interpretation Comments Creatinine Lvl (test code = Creatinine 8.49 0.50-1.40 Lvl) [facility] [employer]2022-06-28 04:12:00 Test Item Value Reference Range Interpretation Comments Sodium Lvl (test code = Sodium Lvl) 133 135-145 [facility] [employer]2022-06-28 04:12:00 Test Item Value Reference Range Interpretation Comments Potassium Lvl (test code = Potassium 4.9 3.5-5.1 Lvl) [facility] [employer]2022-06-28 04:12:00 Test Item Value Reference Range Interpretation Comments Chloride Lvl (test code = Chloride Lvl) 93 95-109 [place] 852792-06-28 04:12:00 Test Item Value Reference Range Interpretation Comments CO2 (test code = CO2) 31 24-32 [place] 852792-06-28 04:12:00 Test Item Value Reference Range Interpretation Comments Calcium Lvl (test code = Calcium Lvl) 9.1 8.5-10.5 [place] 852792-06-28 04:12:00 Test Item Value Reference Range Interpretation Comments Total Protein (test code = Total 6.8 6.4-8.4 Protein) [place] 852792-06-28 04:12:00 Test Item Value Reference Range Interpretation Comments Albumin Lvl (test code = Albumin Lvl) 2.5 3.5-5.0 [place] 852792-06-28 04:12:00 Test Item Value Reference Range Interpretation Comments ALT (test code = ALT) 51 See_Comment [Auto mated message] The system which ge nerated this result transmit swathi reference range : <=65. The reference range was not used to interpr et this result as deny l/abnormal. [place] 852792-06-28 04:12:00 Test Item Value Reference Range Interpretation Comments AST (test code = AST) 36 See_Comment [Auto mated message] The system which ge nerated this result transmit swathi reference range : <=37. The reference range was not used to interpr et this result as deny l/abnormal. [place] 852792-06-28 04:12:00 Test Item Value Reference Range Interpretation Comments Alk Phos (test code = Alk Phos) 383 39-136 [place] 852792-06-28 04:12:00 Test Item Value Reference Range Interpretation Comments Bili Total (test code = Bili Total) 1.1 0.2-1.3 [place] 852792-06-28 04:12:00 Test Item Value Reference Range Interpretation Comments AGAP (test code = AGAP) 13.9 10.0-20.0 [place] [address]-06-28 04:12:00 Test Item Value Reference Range Interpretation Comments B/C Ratio (test code = B/C Ratio) 7 1 6-25 [place] 852792-06-28 04:12:00 Test Item Value Reference Range Interpretation Comments Globulin (test code = Globulin) 4.3 2.7-4.2 [place] 852792-06-28 04:12:00 Test Item Value Reference Range Interpretation Comments A/G Ratio (test code = A/G Ratio) 0.6 1 0.7-1.6 [place] 852792-06-28 04:12:00 Test Item Value Reference Range Interpretation Comments eGFR (test code = eGFR) 5 [place] 852792-06-28 04:12:00 Test Item Value Reference Range Interpretation Comments Procalcitonin Lvl (test 0.69 See_Comment [Au tomated message] code = Procalcitonin Lvl) Th e system which generated this result transmitted ref erence range: <=0.10. The reference range was not used to interpr et this result as normal/abnormal . [place] 441032-06-28 04:12:00 Test Item Value Reference Range Interpretation Comments WBC (test code = WBC) 4.1 3.7-10.4 [place] 441032-06-28 04:12:00 Test Item Value Reference Range Interpretation Comments RBC (test code = RBC) 1.78 4.70-6.10 [place] 441032-06-28 04:12:00 Test Item Value Reference Range Interpretation Comments Hgb (test code = Hgb) 6.5 14.0-18.0 [place] 441032-06-28 04:12:00 Test Item Value Reference Range Interpretation Comments Hct (test code = Hct) 19.5 42.0-54.0 [place] 441032-06-28 04:12:00 Test Item Value Reference Range Interpretation Comments MCV (test code = MCV) 110.0 80.0-94.0 [place] 441032-06-28 04:12:00 Test Item Value Reference Range Interpretation Comments MCH (test code = MCH) 36.5 pg 27.0-31.0 [facility] CenterIynrflxASIDBXSYRD8486-55-04 04:12:00 Test Item Value Reference Range Interpretation Comments MCHC (test code = MCHC) 33.2 32.0-36.0 [place] 441032-06-28 04:12:00 Test Item Value Reference Range Interpretation Comments RDW (test code = RDW) 19.0 11.5-14.5 [place] 441032-06-28 04:12:00 Test Item Value Reference Range Interpretation Comments Platelet (test code = Platelet) 180 133-450 [place] 441032-06-28 04:12:00 Test Item Value Reference Range Interpretation Comments MPV (test code = MPV) 8.3 7.4-10.4 [place] 441032-06-28 04:12:00 Test Item Value Reference Range Interpretation Comments PTT (test code = PTT) 45.4 s 22.9-35.8 [place] 441032-06-28 04:12:00 Test Item Value Reference Range Interpretation Comments PT (test code = PT) 19.1 s 12.0-14.7 [place] [address]-06-28 04:12:00 Test Item Value Reference Range Interpretation Comments INR (test code = INR) 1.62 1 0.85-1.17 [place] 441032-06-28 04:12:00 Test Item Value Reference Range Interpretation Comments RBC Morph (test code = See Note (11/24/21 RBC Morph) 11:12 PM) [facility] CenterIijvaktYUBBENWCCT2873-41-48 04:12:00 Test Item Value Reference Range Interpretation Comments Plt Morph (test code = Normal (11/24/21 11:12 Plt Morph) PM) [place] [address]-06-28 04:12:00 Test Item Value Reference Range Interpretation Comments Segs (test code = Segs) 72.2 45.0-75.0 [place] 441032-06-28 04:12:00 Test Item Value Reference Range Interpretation Comments Lymphocytes (test code = Lymphocytes) 16.2 20.0-40.0 [place] 441032-06-28 04:12:00 Test Item Value Reference Range Interpretation Comments Monocytes (test code = Monocytes) 8.0 2.0-12.0 [place] 441032-06-28 04:12:00 Test Item Value Reference Range Interpretation Comments Eosinophils (test code = 2.7 See_Comment [A utomated message] The Eosinophils) system which ge nerated this result tra nsmitted reference range : <=4.0. The reference r samantha was not used to int erpret this result as normal/abnormal . [facility] CenterYqfurnfCGWZQLQZSR5534-84-88 04:12:00 Test Item Value Reference Range Interpretation Comments Basophils (test code = 0.9 See_Comment [Aut omated message] The Basophils) system which ge nerated this result tra nsmitted reference range : <=1.0. The reference r samantha was not used to int erpret this result as normal/abnormal . [facility] CenterOehuxhbHYLOKVUEHV7103-80-46 04:12:00 Test Item Value Reference Range Interpretation Comments Neutrophils # (test code = Neutrophils 2.9 1.5-8.1 #) [facility] CenterZrsazvfGOJADSCLLZ4980-40-60 04:12:00 Test Item Value Reference Range Interpretation Comments Lymphocytes # (test code = Lymphocytes 0.7 1.0-5.5 #) [facility] CenterBshkpegNDFQFEMHXJ2773-37-06 04:12:00 Test Item Value Reference Range Interpretation Comments Monocytes # (test code 0.3 See_Comment [Aut omated message] The = Monocytes #) system which generated this result tra nsmitted reference range : <=0.8. The reference r samantha was not used to int erpret this result as normal/abnormal . [facility] CenterNdxbosoWNEOCXDOZX8204-50-47 04:12:00 Test Item Value Reference Range Interpretation Comments Eosinophils # (test code 0.1 See_Comment [A utomated message] The = Eosinophils #) system whic h generated this result tra nsmitted reference range : <=0.5. The reference r samantha was not used to int erpret this result as normal/abnormal . [facility] CenterXbtkeuxVYNFBJXKMF0311-51-69 04:12:00 Test Item Value Reference Range Interpretation Comments Anisocyte (test code = 1+ *ABN*(11/24/21 Anisocyte) 11:12 PM) [facility] CenterWrbessaHXYFMRDCJS7181-72-09 04:12:00 Test Item Value Reference Range Interpretation Comments Macrocyte (test code = 1+ *ABN*(11/24/21 Macrocyte) 11:12 PM) [facility] CenterGxtwurhGUJIVZOXKF0385-46-38 04:12:00 Test Item Value Reference Range Interpretation Comments Microcyte (test code = 1+ *ABN*(11/24/21 Microcyte) 11:12 PM) [facility] [id number] 04:12:00 Test Item Value Reference Range Interpretation Comments ABO/Rh (test code = ABO/Rh) AB POS [facility] [employer] [id number] 04:12:00 Test Item Value Reference Range Interpretation Comments Antibody Scrn (test Negative (11/24/21 code = Antibody Scrn) 11:12 PM) [facility] [employer] [id number] 04:12:00 Test Item Value Reference Range Interpretation Comments Total CK (test code = Total CK) 86 12-191 [facility] [employer] [id number] 04:12:00 Test Item Value Reference Range Interpretation Comments HS Troponin I (test code = HS Troponin 316 I) [facility] [employer] [id number] 04:12:00 Test Item Value Reference Range Interpretation Comments Glucose Lvl (test code = Glucose Lvl) 261 70-99 [facility] [employer] [id number] 04:12:00 Test Item Value Reference Range Interpretation Comments BUN (test code = BUN) 60 7-22 [facility] [employer] [id number] 04:12:00 Test Item Value Reference Range Interpretation Comments Creatinine Lvl (test code = Creatinine 8.49 0.50-1.40 Lvl) [facility] [employer] [id number] 04:12:00 Test Item Value Reference Range Interpretation Comments Sodium Lvl (test code = Sodium Lvl) 133 135-145 [facility] [employer] [id number] 04:12:00 Test Item Value Reference Range Interpretation Comments Potassium Lvl (test code = Potassium 4.9 3.5-5.1 Lvl) [facility] [employer] [id number] 04:12:00 Test Item Value Reference Range Interpretation Comments Chloride Lvl (test code = Chloride Lvl) 93 95-109 [facility] [employer] [id number] 04:12:00 Test Item Value Reference Range Interpretation Comments CO2 (test code = CO2) 31 24-32 [facility] [employer] [id number] 04:12:00 Test Item Value Reference Range Interpretation Comments Calcium Lvl (test code = Calcium Lvl) 9.1 8.5-10.5 [facility] [employer] [id number] 04:12:00 Test Item Value Reference Range Interpretation Comments Total Protein (test code = Total 6.8 6.4-8.4 Protein) [facility] [employer]2022-06-28 04:12:00 Test Item Value Reference Range Interpretation Comments Albumin Lvl (test code = Albumin Lvl) 2.5 3.5-5.0 [place] 852792-06-28 04:12:00 Test Item Value Reference Range Interpretation Comments ALT (test code = ALT) 51 See_Comment [Auto mated message] The system which ge nerated this result transmit swathi reference range : <=65. The reference range was not used to interpr et this result as deny l/abnormal. [facility] [id number] 04:12:00 Test Item Value Reference Range Interpretation Comments AST (test code = AST) 36 See_Comment [Auto mated message] The system which ge nerated this result transmit swathi reference range : <=37. The reference range was not used to interpr et this result as deny l/abnormal. [facility] [id number] 04:12:00 Test Item Value Reference Range Interpretation Comments Alk Phos (test code = Alk Phos) 383 39-136 [facility] [id number] 04:12:00 Test Item Value Reference Range Interpretation Comments Bili Total (test code = Bili Total) 1.1 0.2-1.3 [facility] [id number] 04:12:00 Test Item Value Reference Range Interpretation Comments AGAP (test code = AGAP) 13.9 10.0-20.0 [facility] [id number] 04:12:00 Test Item Value Reference Range Interpretation Comments B/C Ratio (test code = B/C Ratio) 7 1 6-25 [facility] [id number] 04:12:00 Test Item Value Reference Range Interpretation Comments Globulin (test code = Globulin) 4.3 2.7-4.2 [facility] [id number] 04:12:00 Test Item Value Reference Range Interpretation Comments A/G Ratio (test code = A/G Ratio) 0.6 1 0.7-1.6 [facility] [id number] 04:12:00 Test Item Value Reference Range Interpretation Comments eGFR (test code = eGFR) 5 [facility] [id number] 04:12:00 Test Item Value Reference Range Interpretation Comments Procalcitonin Lvl (test 0.69 See_Comment [Au tomated message] code = Procalcitonin Lvl) Th e system which generated this result transmitted ref erence range: <=0.10. The reference range was not used to interpr et this result as normal/abnormal . [facility]NxhfxchACWHYOHNON1221-75-59 04:12:00 Test Item Value Reference Range Interpretation Comments WBC (test code = WBC) 4.1 3.7-10.4 [facility] CenterMkqsqetIVVKTMSIHY8821-51-09 04:12:00 Test Item Value Reference Range Interpretation Comments RBC (test code = RBC) 1.78 4.70-6.10 [facility] CenterZzdzvydNQFHJNFJYJ7006-39-18 04:12:00 Test Item Value Reference Range Interpretation Comments Hgb (test code = Hgb) 6.5 14.0-18.0 [place] 441032-06-28 04:12:00 Test Item Value Reference Range Interpretation Comments Hct (test code = Hct) 19.5 42.0-54.0 [facility] CenterBgzussjVYZNFMSMMH4807-67-78 04:12:00 Test Item Value Reference Range Interpretation Comments MCV (test code = MCV) 110.0 80.0-94.0 [facility] CenterTtbjpkjBEUVBDQZQW8959-83-54 04:12:00 Test Item Value Reference Range Interpretation Comments MCH (test code = MCH) 36.5 pg 27.0-31.0 [facility] CenterFqrtthjWTIXVSZWEE4389-58-55 04:12:00 Test Item Value Reference Range Interpretation Comments MCHC (test code = MCHC) 33.2 32.0-36.0 [facility] CenterZxbbbzeUWATRHHQIL1413-21-31 04:12:00 Test Item Value Reference Range Interpretation Comments RDW (test code = RDW) 19.0 11.5-14.5 [place] 441032-06-28 04:12:00 Test Item Value Reference Range Interpretation Comments Platelet (test code = Platelet) 180 133-450 [facility] CenterOwprtxxVPKIKLGVAI0747-49-57 04:12:00 Test Item Value Reference Range Interpretation Comments MPV (test code = MPV) 8.3 7.4-10.4 [facility] CenterPgbigetEGFIRZFLLQ9081-77-23 04:12:00 Test Item Value Reference Range Interpretation Comments PTT (test code = PTT) 45.4 s 22.9-35.8 [facility] CenterHlncpmdIUNOJLWXLZ3238-98-32 04:12:00 Test Item Value Reference Range Interpretation Comments PT (test code = PT) 19.1 s 12.0-14.7 [facility] CenterOfhbilrZOKQWZFHPH4440-73-41 04:12:00 Test Item Value Reference Range Interpretation Comments INR (test code = INR) 1.62 1 0.85-1.17 [place] 441032-06-28 04:12:00 Test Item Value Reference Range Interpretation Comments RBC Morph (test code = See Note (11/24/21 RBC Morph) 11:12 PM) [facility] CenterApfrzaeLLVFREFVMX8771-41-13 04:12:00 Test Item Value Reference Range Interpretation Comments Plt Morph (test code = Normal (11/24/21 11:12 Plt Morph) PM) [facility] CenterMwulahmMIWDGDIESG7879-64-05 04:12:00 Test Item Value Reference Range Interpretation Comments Segs (test code = Segs) 72.2 45.0-75.0 [place] 441032-06-28 04:12:00 Test Item Value Reference Range Interpretation Comments Lymphocytes (test code = Lymphocytes) 16.2 20.0-40.0 [facility] CenterWvioezzSGOFDZULIZ8451-29-51 04:12:00 Test Item Value Reference Range Interpretation Comments Monocytes (test code = Monocytes) 8.0 2.0-12.0 [facility] CenterFjnzvqiYOTJPKRJIU6102-31-10 04:12:00 Test Item Value Reference Range Interpretation Comments Eosinophils (test code = 2.7 See_Comment [A utomated message] The Eosinophils) system which ge nerated this result tra nsmitted reference range : <=4.0. The reference r samantha was not used to int erpret this result as normal/abnormal . [facility] CenterIbuzytsVUFHQGYNAC2675-63-11 04:12:00 Test Item Value Reference Range Interpretation Comments Basophils (test code = 0.9 See_Comment [Aut omated message] The Basophils) system which ge nerated this result tra nsmitted reference range : <=1.0. The reference r samantha was not used to int erpret this result as normal/abnormal . [place] 441032-06-28 04:12:00 Test Item Value Reference Range Interpretation Comments Neutrophils # (test code = Neutrophils 2.9 1.5-8.1 #) [facility] HospitalMecodcyODMJIXFVSC9507-93-15 04:12:00 Test Item Value Reference Range Interpretation Comments Lymphocytes # (test code = Lymphocytes 0.7 1.0-5.5 #) [facility]OBUUXASEGQ[facility]74-30-59 04:12:00 Test Item Value Reference Range Interpretation Comments Monocytes # (test code 0.3 See_Comment [Aut omated message] The = Monocytes #) system which generated this result tra nsmitted reference range : <=0.8. The reference r samantha was not used to int erpret this result as normal/abnormal . [facility] HospitalPvwuhuxQETWMGBSZU2839-70-74 04:12:00 Test Item Value Reference Range Interpretation Comments Eosinophils # (test code 0.1 See_Comment [A utomated message] The = Eosinophils #) system whic h generated this result tra nsmitted reference range : <=0.5. The reference r samantha was not used to int erpret this result as normal/abnormal . [facility] HospitalAjdwffwPUVANOWMOU5189-13-87 04:12:00 Test Item Value Reference Range Interpretation Comments Anisocyte (test code = 1+ *ABN*(11/24/21 Anisocyte) 11:12 PM) [facility] HospitalZpyhrulFLPOYFHKQF1881-26-65 04:12:00 Test Item Value Reference Range Interpretation Comments Macrocyte (test code = 1+ *ABN*(11/24/21 Macrocyte) 11:12 PM) [facility] HospitalFiwkwncCJDNSKXIXP5896-55-54 04:12:00 Test Item Value Reference Range Interpretation Comments Microcyte (test code = 1+ *ABN*(11/24/21 Microcyte) 11:12 PM) [facility] HospitalWellnessFX [id number] 04:12:00 Test Item Value Reference Range Interpretation Comments ABO/Rh (test code = ABO/Rh) AB POS [facility] [employer] [id number] 04:12:00 Test Item Value Reference Range Interpretation Comments Antibody Scrn (test Negative (11/24/21 code = Antibody Scrn) 11:12 PM) [facility] [id number] 04:12:00 Test Item Value Reference Range Interpretation Comments Total CK (test code = Total CK) 86 12-191 [facility] [id number] 04:12:00 Test Item Value Reference Range Interpretation Comments HS Troponin I (test code = HS Troponin 316 I) [place] 852792-06-28 04:12:00 Test Item Value Reference Range Interpretation Comments Glucose Lvl (test code = Glucose Lvl) 261 70-99 [place] 852792-06-28 04:12:00 Test Item Value Reference Range Interpretation Comments BUN (test code = BUN) 60 7-22 [place] 852792-06-28 04:12:00 Test Item Value Reference Range Interpretation Comments Creatinine Lvl (test code = Creatinine 8.49 0.50-1.40 Lvl) [place] 852792-06-28 04:12:00 Test Item Value Reference Range Interpretation Comments Sodium Lvl (test code = Sodium Lvl) 133 135-145 [place] 852792-06-28 04:12:00 Test Item Value Reference Range Interpretation Comments Potassium Lvl (test code = Potassium 4.9 3.5-5.1 Lvl) [place] 852792-06-28 04:12:00 Test Item Value Reference Range Interpretation Comments Chloride Lvl (test code = Chloride Lvl) 93 95-109 [place] 852792-06-28 04:12:00 Test Item Value Reference Range Interpretation Comments CO2 (test code = CO2) 31 24-32 [place] 852792-06-28 04:12:00 Test Item Value Reference Range Interpretation Comments Calcium Lvl (test code = Calcium Lvl) 9.1 8.5-10.5 [place] 852792-06-28 04:12:00 Test Item Value Reference Range Interpretation Comments Total Protein (test code = Total 6.8 6.4-8.4 Protein) [place] 852792-06-28 04:12:00 Test Item Value Reference Range Interpretation Comments Albumin Lvl (test code = Albumin Lvl) 2.5 3.5-5.0 [place] 852792-06-28 04:12:00 Test Item Value Reference Range Interpretation Comments ALT (test code = ALT) 51 See_Comment [Auto mated message] The system which ge nerated this result transmit swathi reference range : <=65. The reference range was not used to interpr et this result as deny l/abnormal. [place] 852792-06-28 04:12:00 Test Item Value Reference Range Interpretation Comments AST (test code = AST) 36 See_Comment [Auto mated message] The system which ge nerated this result transmit swathi reference range : <=37. The reference range was not used to interpr et this result as deny l/abnormal. [facility] [id number] 04:12:00 Test Item Value Reference Range Interpretation Comments Alk Phos (test code = Alk Phos) 383 39-136 [facility] [id number] 04:12:00 Test Item Value Reference Range Interpretation Comments Bili Total (test code = Bili Total) 1.1 0.2-1.3 [facility] [id number] 04:12:00 Test Item Value Reference Range Interpretation Comments AGAP (test code = AGAP) 13.9 10.0-20.0 [facility] [id number] 04:12:00 Test Item Value Reference Range Interpretation Comments B/C Ratio (test code = B/C Ratio) 7 1 6-25 [facility] [id number] 04:12:00 Test Item Value Reference Range Interpretation Comments Globulin (test code = Globulin) 4.3 2.7-4.2 [facility] [id number] 04:12:00 Test Item Value Reference Range Interpretation Comments A/G Ratio (test code = A/G Ratio) 0.6 1 0.7-1.6 [place] 852792-06-28 04:12:00 Test Item Value Reference Range Interpretation Comments eGFR (test code = eGFR) 5 [facility] [id number] 04:12:00 Test Item Value Reference Range Interpretation Comments Procalcitonin Lvl (test 0.69 See_Comment [Au tomated message] code = Procalcitonin Lvl) Th e system which generated this result transmitted ref erence range: <=0.10. The reference range was not used to interpr et this result as normal/abnormal . [facility] HospitalXnschueXJSLJDFWDH4145-10-73 04:12:00 Test Item Value Reference Range Interpretation Comments WBC (test code = WBC) 4.1 3.7-10.4 [place] 441032-06-28 04:12:00 Test Item Value Reference Range Interpretation Comments RBC (test code = RBC) 1.78 4.70-6.10 [facility] CenterXuakqgmDWTBFAALFL7534-71-42 04:12:00 Test Item Value Reference Range Interpretation Comments Hgb (test code = Hgb) 6.5 14.0-18.0 [place] 441032-06-28 04:12:00 Test Item Value Reference Range Interpretation Comments Hct (test code = Hct) 19.5 42.0-54.0 [facility] CenterLwadnbbPEPTCKWQIS7876-90-23 04:12:00 Test Item Value Reference Range Interpretation Comments MCV (test code = MCV) 110.0 80.0-94.0 [facility] CenterArsexukXLYVQKMKFK1024-97-46 04:12:00 Test Item Value Reference Range Interpretation Comments MCH (test code = MCH) 36.5 pg 27.0-31.0 [facility] CenterGqazutgCEZYLSGAHM3828-31-70 04:12:00 Test Item Value Reference Range Interpretation Comments MCHC (test code = MCHC) 33.2 32.0-36.0 [facility] CenterXpqwgtiAOJILAZVFW7468-76-38 04:12:00 Test Item Value Reference Range Interpretation Comments RDW (test code = RDW) 19.0 11.5-14.5 [facility] CenterJlzuvdwUQQVHWGGYP6450-94-88 04:12:00 Test Item Value Reference Range Interpretation Comments Platelet (test code = Platelet) 180 133-450 [facility] CenterMezrdwiROJGZNGGFP6317-72-03 04:12:00 Test Item Value Reference Range Interpretation Comments MPV (test code = MPV) 8.3 7.4-10.4 [facility] CenterNlwzhhsPCYJVDPBUS0258-23-42 04:12:00 Test Item Value Reference Range Interpretation Comments PTT (test code = PTT) 45.4 s 22.9-35.8 [facility] CenterXtbatktEYAMLSOKKX1778-58-95 04:12:00 Test Item Value Reference Range Interpretation Comments PT (test code = PT) 19.1 s 12.0-14.7 [place] 441032-06-28 04:12:00 Test Item Value Reference Range Interpretation Comments INR (test code = INR) 1.62 1 0.85-1.17 [place] 441032-06-28 04:12:00 Test Item Value Reference Range Interpretation Comments RBC Morph (test code = See Note (11/24/21 RBC Morph) 11:12 PM) [facility] CenterXumkptbROMROAOUYE1897-39-71 04:12:00 Test Item Value Reference Range Interpretation Comments Plt Morph (test code = Normal (11/24/21 11:12 Plt Morph) PM) [facility] CenterBohlvpsGNZDILBVID9541-53-43 04:12:00 Test Item Value Reference Range Interpretation Comments Segs (test code = Segs) 72.2 45.0-75.0 [place] 441032-06-28 04:12:00 Test Item Value Reference Range Interpretation Comments Lymphocytes (test code = Lymphocytes) 16.2 20.0-40.0 [place] 441032-06-28 04:12:00 Test Item Value Reference Range Interpretation Comments Monocytes (test code = Monocytes) 8.0 2.0-12.0 [place] 441032-06-28 04:12:00 Test Item Value Reference Range Interpretation Comments Eosinophils (test code = 2.7 See_Comment [A utomated message] The Eosinophils) system which ge nerated this result tra nsmitted reference range : <=4.0. The reference r samantha was not used to int erpret this result as normal/abnormal . [facility] CenterZmrpgyqMPVCRRUDBO2457-81-09 04:12:00 Test Item Value Reference Range Interpretation Comments Basophils (test code = 0.9 See_Comment [Aut omated message] The Basophils) system which ge nerated this result tra nsmitted reference range : <=1.0. The reference r samantha was not used to int erpret this result as normal/abnormal . [facility] CenterFhdjzznISSQMSVUXZ3667-94-25 04:12:00 Test Item Value Reference Range Interpretation Comments Neutrophils # (test code = Neutrophils 2.9 1.5-8.1 #) [facility] CenterLpofofhSOAEFNXRMF7038-59-10 04:12:00 Test Item Value Reference Range Interpretation Comments Lymphocytes # (test code = Lymphocytes 0.7 1.0-5.5 #) [place] 441032-06-28 04:12:00 Test Item Value Reference Range Interpretation Comments Monocytes # (test code 0.3 See_Comment [Aut omated message] The = Monocytes #) system which generated this result tra nsmitted reference range : <=0.8. The reference r samantha was not used to int erpret this result as normal/abnormal . [facility] HospitalWbpbhusZHICYVZTXN5313-74-40 04:12:00 Test Item Value Reference Range Interpretation Comments Eosinophils # (test code 0.1 See_Comment [A utomated message] The = Eosinophils #) system whic h generated this result tra nsmitted reference range : <=0.5. The reference r samantha was not used to int erpret this result as normal/abnormal . [facility] HospitalTdhdxyrEQKNAGPOKM8403-87-33 04:12:00 Test Item Value Reference Range Interpretation Comments Anisocyte (test code = 1+ *ABN*(11/24/21 Anisocyte) 11:12 PM) [facility] HospitalAghzpwpYIUXJURQYL2587-56-75 04:12:00 Test Item Value Reference Range Interpretation Comments Macrocyte (test code = 1+ *ABN*(11/24/21 Macrocyte) 11:12 PM) [facility] HospitalUkwlxcfXDRMIWBPDJ6004-38-68 04:12:00 Test Item Value Reference Range Interpretation Comments Microcyte (test code = 1+ *ABN*(11/24/21 Microcyte) 11:12 PM) [facility] [employer] [id number] 04:12:00 Test Item Value Reference Range Interpretation Comments ABO/Rh (test code = ABO/Rh) AB POS [facility] [employer] [id number] 04:12:00 Test Item Value Reference Range Interpretation Comments Antibody Scrn (test Negative (11/24/21 code = Antibody Scrn) 11:12 PM) [facility] [employer] [id number] 04:12:00 Test Item Value Reference Range Interpretation Comments Total CK (test code = Total CK) 86 12-191 [facility] UWMKNOX2468-06-33 04:12:00 Test Item Value Reference Range Interpretation Comments HS Troponin I (test code = HS Troponin 316 I) [employer] [id number] 04:12:00 Test Item Value Reference Range Interpretation Comments Glucose Lvl (test code = Glucose Lvl) 261 70-99 [facility] [employer]2022-06-28 04:12:00 Test Item Value Reference Range Interpretation Comments BUN (test code = BUN) 60 7-22 [employer]2022-06-28 04:12:00 Test Item Value Reference Range Interpretation Comments Creatinine Lvl (test code = Creatinine 8.49 0.50-1.40 Lvl) [place] 852792-06-28 04:12:00 Test Item Value Reference Range Interpretation Comments Sodium Lvl (test code = Sodium Lvl) 133 135-145 [place] 852792-06-28 04:12:00 Test Item Value Reference Range Interpretation Comments Potassium Lvl (test code = Potassium 4.9 3.5-5.1 Lvl) [place] 852792-06-28 04:12:00 Test Item Value Reference Range Interpretation Comments Chloride Lvl (test code = Chloride Lvl) 93 95-109 [place] 852792-06-28 04:12:00 Test Item Value Reference Range Interpretation Comments CO2 (test code = CO2) 31 24-32 [place] 852792-06-28 04:12:00 Test Item Value Reference Range Interpretation Comments Calcium Lvl (test code = Calcium Lvl) 9.1 8.5-10.5 [place] 852792-06-28 04:12:00 Test Item Value Reference Range Interpretation Comments Total Protein (test code = Total 6.8 6.4-8.4 Protein) [place] 852792-06-28 04:12:00 Test Item Value Reference Range Interpretation Comments Albumin Lvl (test code = Albumin Lvl) 2.5 3.5-5.0 [place] 852792-06-28 04:12:00 Test Item Value Reference Range Interpretation Comments ALT (test code = ALT) 51 See_Comment [Auto mated message] The system which ge nerated this result transmit swathi reference range : <=65. The reference range was not used to interpr et this result as deny l/abnormal. [place] 852792-06-28 04:12:00 Test Item Value Reference Range Interpretation Comments AST (test code = AST) 36 See_Comment [Auto mated message] The system which ge nerated this result transmit swathi reference range : <=37. The reference range was not used to interpr et this result as deny l/abnormal. [place] 852792-06-28 04:12:00 Test Item Value Reference Range Interpretation Comments Alk Phos (test code = Alk Phos) 383 39-136 [place] 852792-06-28 04:12:00 Test Item Value Reference Range Interpretation Comments Bili Total (test code = Bili Total) 1.1 0.2-1.3 [place] 852792-06-28 04:12:00 Test Item Value Reference Range Interpretation Comments AGAP (test code = AGAP) 13.9 10.0-20.0 [place] 852792-06-28 04:12:00 Test Item Value Reference Range Interpretation Comments B/C Ratio (test code = B/C Ratio) 7 1 6-25 [place] 852792-06-28 04:12:00 Test Item Value Reference Range Interpretation Comments Globulin (test code = Globulin) 4.3 2.7-4.2 [place] 852792-06-28 04:12:00 Test Item Value Reference Range Interpretation Comments A/G Ratio (test code = A/G Ratio) 0.6 1 0.7-1.6 [place] 852792-06-28 04:12:00 Test Item Value Reference Range Interpretation Comments eGFR (test code = eGFR) 5 [place] 852792-06-28 04:12:00 Test Item Value Reference Range Interpretation Comments Procalcitonin Lvl (test 0.69 See_Comment [Au tomated message] code = Procalcitonin Lvl) Th e system which generated this result transmitted ref erence range: <=0.10. The reference range was not used to interpr et this result as normal/abnormal . [facility] CenterAkndklxNQQKXLQLZK5787-73-29 04:12:00 Test Item Value Reference Range Interpretation Comments WBC (test code = WBC) 4.1 3.7-10.4 [place] 441032-06-28 04:12:00 Test Item Value Reference Range Interpretation Comments RBC (test code = RBC) 1.78 4.70-6.10 [place] [address]-06-28 04:12:00 Test Item Value Reference Range Interpretation Comments Hgb (test code = Hgb) 6.5 14.0-18.0 [place] [address]-06-28 04:12:00 Test Item Value Reference Range Interpretation Comments Hct (test code = Hct) 19.5 42.0-54.0 [place] 441032-06-28 04:12:00 Test Item Value Reference Range Interpretation Comments MCV (test code = MCV) 110.0 80.0-94.0 [facility] CenterEbfchxeICKAJTNLUV9672-88-30 04:12:00 Test Item Value Reference Range Interpretation Comments MCH (test code = MCH) 36.5 pg 27.0-31.0 [facility] CenterZwblcxuZQBYJSGPVP7854-10-63 04:12:00 Test Item Value Reference Range Interpretation Comments MCHC (test code = MCHC) 33.2 32.0-36.0 [facility] CenterFlpaboyFJPZUWGYSK0622-97-12 04:12:00 Test Item Value Reference Range Interpretation Comments RDW (test code = RDW) 19.0 11.5-14.5 [facility]LfdqfnvJHZZBLNKBI1579-06-15 04:12:00 Test Item Value Reference Range Interpretation Comments Platelet (test code = Platelet) 180 133-450 [facility] CenterAykikblHFQHEMYQBR3167-98-92 04:12:00 Test Item Value Reference Range Interpretation Comments MPV (test code = MPV) 8.3 7.4-10.4 [facility] CenterTjxdzybLPGKAZEBJG8771-88-92 04:12:00 Test Item Value Reference Range Interpretation Comments PTT (test code = PTT) 45.4 s 22.9-35.8 [facility] CenterPfojhffNRPKYBLIUU6836-57-06 04:12:00 Test Item Value Reference Range Interpretation Comments PT (test code = PT) 19.1 s 12.0-14.7 [facility] CenterJyuljdeNWONAADAKY3181-87-31 04:12:00 Test Item Value Reference Range Interpretation Comments INR (test code = INR) 1.62 1 0.85-1.17 [facility] CenterCmrtmyuKOTTCOJOEY7540-35-31 04:12:00 Test Item Value Reference Range Interpretation Comments RBC Morph (test code = See Note (11/24/21 RBC Morph) 11:12 PM) [facility] CenterHeuvnevOZJOWXOHTD0527-36-70 04:12:00 Test Item Value Reference Range Interpretation Comments Plt Morph (test code = Normal (11/24/21 11:12 Plt Morph) PM) [facility] CenterUethewcJPVRXWXLAI3311-12-50 04:12:00 Test Item Value Reference Range Interpretation Comments Segs (test code = Segs) 72.2 45.0-75.0 [place] [id number] 04:12:00 Test Item Value Reference Range Interpretation Comments Lymphocytes (test code = Lymphocytes) 16.2 20.0-40.0 [place] [id number] 04:12:00 Test Item Value Reference Range Interpretation Comments Monocytes (test code = Monocytes) 8.0 2.0-12.0 [facility] CenterDesrlthCMKLEQJBYM1453-48-64 04:12:00 Test Item Value Reference Range Interpretation Comments Eosinophils (test code = 2.7 See_Comment [A utomated message] The Eosinophils) system which ge nerated this result tra nsmitted reference range : <=4.0. The reference r samantha was not used to int erpret this result as normal/abnormal . [place] [id number] 04:12:00 Test Item Value Reference Range Interpretation Comments Basophils (test code = 0.9 See_Comment [Aut omated message] The Basophils) system which ge nerated this result tra nsmitted reference range : <=1.0. The reference r samantha was not used to int erpret this result as normal/abnormal . [facility] CenterRaktlhuNWXJUQKKCY2714-60-69 04:12:00 Test Item Value Reference Range Interpretation Comments Neutrophils # (test code = Neutrophils 2.9 1.5-8.1 #) [facility] CenterCwtkwooPTFXWDZRTY3423-84-36 04:12:00 Test Item Value Reference Range Interpretation Comments Lymphocytes # (test code = Lymphocytes 0.7 1.0-5.5 #) [place] [id number] 04:12:00 Test Item Value Reference Range Interpretation Comments Monocytes # (test code 0.3 See_Comment [Aut omated message] The = Monocytes #) system which generated this result tra nsmitted reference range : <=0.8. The reference r samantha was not used to int erpret this result as normal/abnormal . [place] [id number] 04:12:00 Test Item Value Reference Range Interpretation Comments Eosinophils # (test code 0.1 See_Comment [A utomated message] The = Eosinophils #) system whic h generated this result tra nsmitted reference range : <=0.5. The reference r samantha was not used to int erpret this result as normal/abnormal . [place] [id number] 04:12:00 Test Item Value Reference Range Interpretation Comments Anisocyte (test code = 1+ *ABN*(11/24/21 Anisocyte) 11:12 PM) [id number] 04:12:00 Test Item Value Reference Range Interpretation Comments Macrocyte (test code = 1+ *ABN*(11/24/21 Macrocyte) 11:12 PM) [facility]FmvjarcJIVIUXJEXP8541-28-84 04:12:00 Test Item Value Reference Range Interpretation Comments Microcyte (test code = 1+ *ABN*(11/24/21 Microcyte) 11:12 PM) [facility] [id number] 00:00:00 Test Item Value Reference Range Interpretation Comments A1C (test code = 4548-4) 8.8 HEMOGLOBIN [id number] 00:00:00 Test Item Value Reference Range Interpretation Comments A1C (test code = 4548-4) 8.3 HEMOGLOBIN [id number] 00:00:00 Test Item Value Reference Range Interpretation Comments A1C (test code = 4548-4) 10.3 Notes Date/Time Note Provider Source 2022-01-02 12:48:02-00:00 [facility] Exam date and time: [...] Chester Kemp MD On 01/02/2022 13:11:40; VR-KBRYA [id number] 12:48:02-00:00 [facility] Exam date and time: [...] Chester Kemp MD On 01/02/2022 13:11:40; VR-KBRYA [id number] 12:48:02-00:00 PROCEDURE INFORMATION: [facility] Exam: XR Chest Exam date and time: [...] Chester Kemp MD On 01/02/2022 13:11:40; VR-KBRYA [id number] 12:00:00-00:00 Radiation Dose CTDIVOL = 0 ( mGy): DLP = 1052.78 (mGy-cm) [facility] PROCEDURE INFORMATION: Exam: CTA Chest With Contrast Exam date and time: 12/15/2021 12:49 PM Age: 76 years old Clinical indication: /possible pe, positive for covid-19, respiratory infections and infla 12/14/21 TECHNIQUE: Imaging protocol: Computed tomographic a ngiography of the chest with contrast. 3D rendering (Not supervised by radiologist): FL P and/or 3D reconstructed images were created [...] Alexis Maloney MD On 12/15/2021 15:45:07; VR- [id number] 2021-12-15 12:00:00-00:00 Radiation Dose CTDIVOL = 0 ( mGy): DLP = 1052.78 (mGy-cm) [facility] PROCEDURE INFORMATION: Exam: CTA Chest With Contrast Exam date and time: 12/15/2021 12:49 PM Age: 76 years old Clinical indication: /possible pe, positive for covid-19, respiratory infections and infla 12/14/21 TECHNIQUE: Imaging protocol: Computed tomographic a ngiography of the chest with contrast. 3D rendering (Not supervised by radiologist): FL P and/or 3D reconstructed images were created [...] Alexis Maloney MD On 12/15/2021 15:45:07; VR- [id number] 2021-12-15 12:00:00-00:00 Radiation Dose CTDIVOL = 0 ( mGy): DLP = 1052.78 (mGy-cm) [facility] PROCEDURE INFORMATION: Exam: CTA Chest With Contrast Exam date and time: 12/15/2021 12:49 PM Age: 76 years old Clinical indication: /possible pe, positive for covid-19, respiratory infections and infla 07/17/22 TECHNIQUE: Imaging protocol: Computed tomographic a ngiography of the chest with contrast. 3D rendering (Not supervised by radiologist): FL P and/or 3D reconstructed images were created [...] Alexis Maloney MD On 12/15/2021 15:45:07; VR- [id number] 2021-12-14 15:50:31-00:00 PROCEDURE INFORMATION: [facility] Exam: XR Chest Exam date and time: [...] Chester Back MD On 12/14/2021 16:21:28; SHARRI [id number] 2021-12-14 15:50:31-00:00 PROCEDURE INFORMATION: [facility] Exam: XR Chest Exam date and time: [...] 16:21:28; SHARRI [id number] 2021-12-14 15:50:31-00:00 PROCEDURE INFORMATION: [facility] Exam: XR Chest Exam date and time: [...] 16:21:28; SHARRI [id number] 2021-12-03 20:30:42-00:00 PROCEDURE INFORMATION: [facility] Exam: XR Chest Exam date and time: [...] Avtar Fortune MD On 12/03/2021 21:17:23; VR-[id number] 2021-12-03 20:30:42-00:00 PROCEDURE INFORMATION: [facility] Exam: XR Chest Exam date and time: [...] Avtar Fortune MD On 12/03/2021 21:17:23; VR-[id number] 2021-12-03 20:30:42-00:00 PROCEDURE INFORMATION: [facility] Exam: XR Chest Exam date and time: [...] Avtar Fortune MD On 12/03/2021 21:17:23; VR-KPATE0 [id number] 2021-11-25 05:45:00-00:00 PROCEDURE INFORMATION: [facility] Exam: US Duplex Lower Extremity Veins, Bilateral [...] Cole Barnes MD On 11/25/2021 07:01:56; VR-GSYN [id number] 2021-11-25 05:45:00-00:00 PROCEDURE INFORMATION: [facility] Exam: US Abdomen, Limited; Right Upper Quadrant [...] Kit Pollard MD On 11/25/2021 07:54:47; VR -[id number] 2021-11-25 05:45:00-00:00 PROCEDURE INFORMATION: [facility] Exam: US Duplex Lower Extremity Veins, Bilateral [...] Cole Barnes MD On 11/25/2021 07:01:56; VR-GSYN [id number] 2021-11-25 05:45:00-00:00 PROCEDURE INFORMATION: [facility] Exam: US Abdomen, Limited; Right Upper Quadrant [...] Kit Pollard MD On 11/25/2021 07:54:47; VR -[id number] 2021-11-25 05:45:00-00:00 PROCEDURE INFORMATION: [facility] Exam: US Duplex Lower Extremity Veins, Bilateral [...] Cole Barnes MD On 11/25/2021 07:01:56; VR-GSYN [id number] 2021-11-25 05:45:00-00:00 PROCEDURE INFORMATION: [facility] Exam: US Abdomen, Limited; Right Upper Quadrant [...] Kit Pollard MD On 11/25/2021 07:54:47; VR -[id number] 2021-11-25 02:17:08-00:00 PROCEDURE INFORMATION: [facility] Exam: XR Right Foot Exam date and [...] Surendra Chavis MD On 11/25/2021 02:27:52; VR-[id number] [id number] 2021-11-25 02:17:08-00:00 PROCEDURE INFORMATION: [facility] Exam: XR Right Foot Exam date and [...] Surendra Chavis MD On 11/25/2021 02:27:52; VR-[id number] [id number] 2021-11-25 02:17:08-00:00 PROCEDURE INFORMATION: [facility] Exam: XR Right Foot Exam date and [...] Surendra Chavis MD On 11/25/2021 02:27:52; [id number] 2021-11-24 23:56:05-00:00 Radiation Dose CTDIVOL = 0 ( mGy): DLP = 675.2 (mGy-cm) [facility] PROCEDURE INFORMATION: Exam: CT Abdomen And Pelvis [...] additional nonacute findings. COMMENTS: Consistent with the [employer] Incidental Findings [employer] [...] Surendra Chavis MD On 11/25/2021 00:47:46; VR-[id number] 2021-11-24 23:56:05-00:00 Radiation Dose CTDIVOL = 0 ( mGy): DLP = 675.2 (mGy-cm) [facility] PROCEDURE INFORMATION: Exam: CT Abdomen And Pelvis [...] additional nonacute findings. COMMENTS: Consistent with the [employer] Incidental Findings [employer] [...] Surendra Chavis MD On 11/25/2021 00:47:46; VR-[id number] 2021-11-24 23:56:05-00:00 Radiation Dose CTDIVOL = 0 ( mGy): DLP = 675.2 (mGy-cm) [facility] PROCEDURE INFORMATION: Exam: CT Abdomen And Pelvis [...] additional nonacute findings. COMMENTS: Consistent with the [employer] Incidental Findings [employer] [...] Surendra Chavis MD On 11/25/2021 00:47:46; VR-[id number] 2021-11-24 22:50:28-00:00 PROCEDURE INFORMATION: [facility] Exam: XR Chest Exam date and time: [...] Cardiomegaly. Surendra Chavis MD On 11/24/2021 22:53:49; CARMELA-[id number] 2021-11-24 22:50:28-00:00 [facility]: [facility] Chest Exam date and time: [...] Surendra Chavis MD On 11/24/2021 22:53:49; VR-[id number] 2021-11-24 22:50:28-00:00 [facility]: [facility] Chest Exam date and time: [...] Surendra Chavis MD On 11/24/2021 22:53:49; VR-[id number]
[2022-11-29] MEDS ORDERED: KETOROLAC 30 MG/ML INJ ONE (13:22)
[2022-11-29] MEDS ORDERED: LIDOCAINE 4% PATCH ONE (13:23)
--- NOTE | 2022-11-29 13:56 | RAD REPORT ---
EXAM DESCRIPTION: RAD - Abdomen Acute Series - 11/29/2022 1:42 pm CLINICAL HISTORY: Abdomen pain FINDINGS: The bowel gas pattern is unremarkable. Large amount stool is present throughout the colon Vascular calcifications are present.
[2022-11-29 14:22] LABS: Absolute Lymphocytes (CBC) 0.8 K/uL (0.7-4.9); Hematocrit 20.7 % (39.6-49.0); Lymphocytes % 18.9 % (15.3-44.8); MCV 85.4 fL (80-100); MPV 7.1 fL (7.6-11.3); RBC Red Blood Cell Count 2.42 M/uL (4.33-5.43)
[2022-11-29 14:34] LABS: Potassium 4.3 mEq/L (3.5-5.1)
[2022-11-29] MEDS ORDERED: CYCLOBENZAPRINE 10 MG TAB ONE (14:49)
[2022-11-29] MEDS ORDERED: NA CHLORIDE 0.9% 250 ML ONE (18:40)
--- NOTE | 2022-11-29 21:20 | EDPHYS ---
Physician Documentation [facility] Name: Guzman Mayers Age: 77 yrs Sex: Male : 1945 Arrival Date: 11/29/2022 Time: 12:02 Bed 2 Private MD: ED Physician Anderson Mitchell HPI: 11/29 17:24 This 77 yrs old Male presents to ER via EMS with complaints of Back Pain. kdr 17:25 Patient presents to the ED complaining of back pain. He has had the same pain for the kdr last 3 months. And has had 5 visits including today's visit to the ED in this month. He reports the pain is unbearable today. There is nothing different about the character of the pain. Just that it is unbearable. Patient is otherwise in his usual state of health. Vital signs were found to be within normal limits by EMS. He was brought in on 2 L of nasal cannula oxygen. Patient denies any new falls or injuries or any other precipitating events to make the pain today particularly worse or different from any of his other presentations.. Onset: The symptoms/episode began/occurred gradually, 3 month(s) ago. Severity of symptoms: At their worst the symptoms were moderate severe incapacitating just prior to arrival, in the emergency department the symptoms are unchanged. The patient has experienced similar episodes in the past, multiple times, chronically. The patient has been recently seen by a physician: The patient has been recently seen at the [facility] Emergency Department, this week, last week. Historical: - Allergies: 12:06 Codeine; hb 12:06 GABAPENTIN; hb - PMHx: 12:06 ADD/ADHD; Diabetes - IDDM; COPD; Dialysis; MWF; High Cholesterol; CHF; CKD; HTN; hb Hypertension; - Immunization history:: Adult Immunizations up to date. - Social history:: Smoking status: . ROS: 17:25 Constitutional: Negative for fever, chills, and weight loss, Eyes: Negative for injury, kdr pain, redness, and discharge, Neck: Negative for injury, pain, and swelling, Cardiovascular: Negative for chest pain, palpitations, and edema, Respiratory: Negative for shortness of breath, cough, wheezing, and pleuritic chest pain, Abdomen/GI: Negative for abdominal pain, nausea, vomiting, diarrhea, and constipation, : Negative for injury, bleeding, discharge, and swelling, MS/Extremity: Negative for injury and deformity, Skin: Negative for injury, rash, and discoloration, Neuro: Negative for headache, weakness, numbness, tingling, and seizure activity. Psych: Negative for depression, anxiety, suicide ideation, homicidal ideation, and hallucinations, Allergy/Immunology: Negative for hives, rash, and allergies, Endocrine: Negative for neck swelling, polydipsia, polyuria, polyphagia, and marked weight changes, Hematologic/Lymphatic: Negative for swollen nodes, abnormal bleeding, and unusual bruising. 17:25 Back: Positive for pain at rest, pain with movement, of the low back area. Exam: 17:25 Constitutional: This is a well developed, well nourished patient who is awake, alert, kdr and in no acute distress. Head/Face: Normocephalic, atraumatic. Eyes: Pupils equal round and reactive to light, extra-ocular motions intact. Lids and lashes normal. Conjunctiva and sclera are non-icteric and not injected. Cornea within normal limits. Periorbital areas with no swelling, redness, or edema. Neck: Trachea midline, no thyromegaly or masses palpated, and no cervical lymphadenopathy. Supple, full range of motion without nuchal rigidity, or vertebral point tenderness. No Meningismus. Chest/axilla: Normal chest wall appearance and motion. Nontender with no deformity. No lesions are appreciated. Cardiovascular: Regular rate and rhythm with a normal S1 and S2. No gallops, murmurs, or rubs. Normal PMI, no JVD. No pulse deficits. Respiratory: Lungs have equal breath sounds bilaterally, clear to auscultation and percussion. No rales, rhonchi or wheezes noted. No increased work of breathing, no retractions or nasal flaring. Abdomen/GI: Soft, non-tender, with normal bowel sounds. No distension or tympany. No guarding or rebound. No evidence of tenderness throughout. Skin: Warm, dry with normal turgor. Normal color with no rashes, no lesions, and no evidence of cellulitis. MS/ Extremity: Pulses equal, no cyanosis. Neurovascular intact. Full, normal range of motion. Neuro: Awake and alert, GCS 15, oriented to person, place, time, and situation. Cranial nerves II-XII grossly intact. Motor strength 5/5 in all extremities. Sensory grossly intact. Cerebellar exam normal. Normal gait. Psych: Awake, alert, with orientation to person, place and time. Behavior, mood, and affect are within normal limits. 17:25 Back: pain, that is moderate, of the low back area, normal spinal alignment noted, CVA tenderness, is absent, vertebral tenderness, is appreciated at lumbar spine and sacrum. Vital Signs: 12:04 BP 131 / 51; Pulse 81; Resp 17; Temp 98.4; Pulse Ox 100% on 2 lpm NC; Weight 76.2 kg; hb Height 5 ft. 8 in. ; Pain 10/10; 13:13 BP 136 / 86; Pulse 74; Resp 15; Pulse Ox 99% ; hb 14:17 BP 124 / 72; Pulse 75; Resp 16; Pulse Ox 99% ; hb 15:13 BP 131 / 76; Pulse 74; Resp 17; Pulse Ox 100% on R/A; hb 16:44 BP 138 / 71; Pulse 57; Resp 18; Pulse Ox 100% on R/A; ph 18:00 BP 132 / 68; Pulse 60; Resp 15; Pulse Ox 99% on R/A; hb 19:00 BP 152 / 60; Pulse 57; Resp 14; Pulse Ox 100% ; ll3 20:00 BP 148 / 68; Pulse 58; Resp 15; Pulse Ox 99% ; ll3 21:00 BP 151 / 64; Pulse 57; Resp 16; Pulse Ox 99% on R/A; ll3 22:00 BP 158 / 63; Pulse 57; Resp 19; Pulse Ox 99% on R/A; ll3 23:00 BP 157 / 73; Pulse 60; Resp 15; Pulse Ox 98% ; ll3 23:57 BP 160 / 65; Pulse 57; Resp 19; Pulse Ox 99% ; ll3 12:04 Body Mass Index 25.54 (76.20 kg, 172.72 cm) hb 12:04 Pain Scale: Adult hb MDM: 19:20 Patient medically screened. [facility] 11/30 13:08 Data reviewed: vital signs, nurses notes, lab test result(s), radiologic studies. [facility] 11/29 13:55 Order name: CBC with Diff; Complete Time: 15:16 kdr 11/29 13:55 Order name: Chem 7; Complete Time: 15:16 kdr 11/29 15:23 Order name: T\T\S eb 11/29 15:24 Order name: Bb Add On eb 11/29 16:34 Order name: Packed RBC Leukored [facility] 11/29 12:41 Order name: Abdomen Acute Series XRAY; Complete Time: 14:31 kdr 11/29 21:19 Order name: Transfuse; Complete Time: 21:37 gregorio Administered Medications: 11/29 13:21 Drug: Lidoderm Topical Patch 5 % (700 mg/patch) 1 patches Route: Topical; Site: ss affected area; 14:17 Follow up: Response: No adverse reaction hb 13:21 Drug: Ketorolac IM 15 mg Route: IM; Site: right deltoid; ss 14:17 Follow up: Response: No adverse reaction hb 14:43 Drug: Cyclobenzaprine PO 10 mg Route: PO; ph 15:57 Follow up: Response: No adverse reaction hb Disposition Summary: 11/29/22 21:19 Discharge Ordered Location: Home gregorio Problem: new gregorio Symptoms: have improved gregorio Condition: Stable gregorio Diagnosis - Chronic kidney disease, unspecified gregorio - Anemia, unspecified gregorio - Low back pain gregorio Followup: gregorio - With: Private Physician - When: 2 - 3 days - Reason: Recheck today's complaints, Continuance of care, Re-evaluation by your physician Discharge Instructions: - Discharge Summary Sheet gregorio - Anemia gregorio - Chronic Back Pain gregorio - Blood Transfusion, Adult gregorio - Musculoskeletal Pain gregorio - Chronic Back Pain, Gmlv-st-Ifbf gregorio - Blood Transfusion, Adult, Nhdu-dg-Mdyv gregorio Forms: - Medication Reconciliation Form gregorio - Thank You Letter gregorio - Antibiotic Education gregorio - Prescription Opioid Use [facility] - [email or web address] [facility] Prescriptions: - Cyclobenzaprine 5 mg Oral Tablet - take 1 tablet by ORAL route 3 times per day As needed; 15 tablet; Refills: 0, gregorio Product Selection Permitted Signatures: Dispatcher [employer] Anderson Gamez MD MD cha Rittger, Kevin, MD MD kdr Blanchard, Shelby RN RN ss Pieadd De La Rosa RN RN ph Lucretia Hinojosa, RN RN hb
--- NOTE | 2022-11-29 21:20 | ER ---
Nurse's Notes [facility] Name: Guzman Mayers Age: 77 yrs Sex: Male : 1945 Arrival Date: 11/29/2022 Time: 12:02 Bed 2 Private MD: Diagnosis: Chronic kidney disease, unspecified;Anemia, unspecified;Low back pain Presentation: 11/29 12:04 Chief complaint: EMS states: Low back pain after fall 3 months ago, reports pain is hb unbearable today. VS WNL, on 2LNC home 02. Coronavirus screen: At this time, the client does not indicate any symptoms associated with coronavirus-19. Ebola Screen: No symptoms or risks identified at this time. Initial Sepsis Screen: Does the patient meet any 2 criteria? No. Patient's initial sepsis screen is negative. Does the patient have a suspected source of infection? No. Patient's initial sepsis screen is negative. Risk Assessment: Do you want to hurt yourself or someone else? Patient reports no desire to harm self or others. Onset of symptoms was November 29, 2022. 12:04 Method Of Arrival: EMS: [facility] 12:04 Acuity: CHICHO 3 hb Triage Assessment: 12:06 General: Appears in no apparent distress. uncomfortable, Behavior is calm, cooperative. hb Pain: Pain currently is 6 out of 10 on a pain scale. at worst was 10 out of 10 on a pain scale. EENT: No signs and/or symptoms were reported regarding the EENT system. Neuro: Level of Consciousness is awake, alert, obeys commands, Oriented to person, place, time, situation. Cardiovascular: Patient's skin is warm and dry. Respiratory: Respiratory effort is even, unlabored, Respiratory pattern is regular, symmetrical. GI: No signs and/or symptoms were reported involving the gastrointestinal system. : No signs and/or symptoms were reported regarding the genitourinary system. Derm: Skin is pink, warm \T\ dry. Musculoskeletal: Reports severe low back pain. Historical: - Allergies: 12:06 Codeine; hb 12:06 GABAPENTIN; hb - PMHx: 12:06 ADD/ADHD; Diabetes - IDDM; COPD; Dialysis; MWF; High Cholesterol; CHF; CKD; HTN; hb Hypertension; - Immunization history:: Adult Immunizations up to date. - Social history:: Smoking status: . Screenin:07 [facility] ED Fall Risk Assessment (Adult) Score/Fall Risk Level 0 - 2 = Low Risk hb Oriented to surroundings, Maintained a safe environment, Educated pt \T\ family on fall prevention, incl call for assistance when getting out of bed. Abuse screen: Denies threats or abuse. Denies injuries from another. Nutritional screening: No deficits noted. Tuberculosis screening: No symptoms or risk factors identified. Assessment: 12:07 General: See triage assessment. hb 13:01 Reassessment: Patient appears in no apparent distress at this time. Patient and/or hb family updated on plan of care and expected duration. Pain level reassessed. Patient is alert, oriented x 3, equal unlabored respirations, skin warm/dry/pink. 14:17 Reassessment: Patient appears in no apparent distress at this time. Patient and/or hb family updated on plan of care and expected duration. Pain level reassessed. Patient is alert, oriented x 3, equal unlabored respirations, skin warm/dry/pink. 15:13 Reassessment: Patient appears in no apparent distress at this time. Patient and/or hb family updated on plan of care and expected duration. Pain level reassessed. Patient is alert, oriented x 3, equal unlabored respirations, skin warm/dry/pink. 16:45 Reassessment: Patient appears in no apparent distress at this time. Patient and/or hb family updated on plan of care and expected duration. Pain level reassessed. Patient is alert, oriented x 3, equal unlabored respirations, skin warm/dry/pink. 17:30 Reassessment: Patient appears in no apparent distress at this time. Patient and/or hb family updated on plan of care and expected duration. Pain level reassessed. Patient is alert, oriented x 3, equal unlabored respirations, skin warm/dry/pink. 18:35 Reassessment: Patient appears in no apparent distress at this time. Patient and/or hb family updated on plan of care and expected duration. Pain level reassessed. Patient is alert, oriented x 3, equal unlabored respirations, skin warm/dry/pink. 18:45 Reassessment: First unit PRBCs started, see transfusion flowshieet. hb 21:24 General: discharge pending completion of blood . as6 Vital Signs: 12:04 BP 131 / 51; Pulse 81; Resp 17; Temp 98.4; Pulse Ox 100% on 2 lpm NC; Weight 76.2 kg; hb Height 5 ft. 8 in. ; Pain 10/10; 13:13 BP 136 / 86; Pulse 74; Resp 15; Pulse Ox 99% ; hb 14:17 BP 124 / 72; Pulse 75; Resp 16; Pulse Ox 99% ; hb 15:13 BP 131 / 76; Pulse 74; Resp 17; Pulse Ox 100% on R/A; hb 16:44 BP 138 / 71; Pulse 57; Resp 18; Pulse Ox 100% on R/A; ph 18:00 BP 132 / 68; Pulse 60; Resp 15; Pulse Ox 99% on R/A; hb 19:00 BP 152 / 60; Pulse 57; Resp 14; Pulse Ox 100% ; ll3 20:00 BP 148 / 68; Pulse 58; Resp 15; Pulse Ox 99% ; ll3 21:00 BP 151 / 64; Pulse 57; Resp 16; Pulse Ox 99% on R/A; ll3 22:00 BP 158 / 63; Pulse 57; Resp 19; Pulse Ox 99% on R/A; ll3 23:00 BP 157 / 73; Pulse 60; Resp 15; Pulse Ox 98% ; ll3 23:57 BP 160 / 65; Pulse 57; Resp 19; Pulse Ox 99% ; ll3 12:04 Body Mass Index 25.54 (76.20 kg, 172.72 cm) hb 12:04 Pain Scale: Adult hb ED Course: 12:04 Patient arrived in ED. hb 12:06 Triage completed. hb 12:06 Jerardo Vasquez MD is Attending Physician. kdr 12:06 Arm band placed on. hb 12:07 Patient has correct armband on for positive identification. hb 12:07 No provider procedures requiring assistance completed. hb 12:15 Piedad De La Rosa, RN is Primary Nurse. ph 13:44 Abdomen Acute Series XRAY In Process Unspecified. EDMS 14:16 Chem 7 Sent. hb 14:16 CBC with Diff Sent. hb 15:57 T\T\S Sent. hb 19:20 Attending Physician role handed off by Jerardo Vasquez MD gregorio 19:20 Anderson Mitchell MD is Attending Physician. gregorio 23:56 IV discontinued, intact, bleeding controlled, No redness/swelling at site. Pressure ll3 dressing applied. Administered Medications: 13:21 Drug: Lidoderm Topical Patch 5 % (700 mg/patch) 1 patches Route: Topical; Site: ss affected area; 14:17 Follow up: Response: No adverse reaction hb 13:21 Drug: Ketorolac IM 15 mg Route: IM; Site: right deltoid; ss 14:17 Follow up: Response: No adverse reaction hb 14:43 Drug: Cyclobenzaprine PO 10 mg Route: PO; ph 15:57 Follow up: Response: No adverse reaction hb Medication: 12:07 VIS not applicable for this client. hb Outcome: 21:19 Discharge ordered by . gregorio 23:56 Discharged to home via wheelchair, with family. ll3 23:56 Condition: stable 23:56 Discharge instructions given to patient, family, Instructed on discharge instructions, follow up and referral plans. medication usage, Demonstrated understanding of instructions, follow-up care, medications, Prescriptions given X 1. 23:58 Patient left the ED. ll3 Signatures: Dispatcher [employer] EDMS Anderson Mitchell MD MD cha Rittger, Kevin, MD MD kdr Blanchard, Shelby, GILSON RIGGINS ss Piedad De La Rosa RN RN ph Lucretia Hinojosa, GILSON RN Manolo Ramirez, GILSON RIGGINS as6 Hu Cortez RN RN ll3
[2022-11-30 00:24] VITALS: TEMP 98.4
[2022-11-30 00:43] VITALS: BP 160/65; O2SAT 99
== END 2022-11-29 23:58 | disposition home or self-care (01) ==
LOC: ER 12:02
PROC: 30233N1 Transfusion of Nonautologous Red Blood Cells into Peripheral Vein, Percutaneous Approach (ICD-10-PCS; principal; 2022-11-29)
DX: E11.22 Type 2 diabetes mellitus with diabetic chronic kidney disease (principal); I13.2 Hypertensive heart and chronic kidney disease with heart failure and with stage 5 chronic kidney disease, or end stage renal disease; N18.6 End stage renal disease; I50.9 Heart failure, unspecified; D63.1 Anemia in chronic kidney disease; Z99.2 Dependence on renal dialysis; Z88.5 Allergy status to narcotic agent; Z88.8 Allergy status to other drugs, medicaments and biological substances
CPT/HCPCS: 85025; 80048; 36415; 86900; 86850; 86901; 86920 ×2; 74022; 96372; 99284; 36430; J2001; P9016 ×2; J7050

== ENCOUNTER 2022-12-09 15:37 | Emergency (ER) | payer OTHER, BC ==
--- OUTSIDE RECORDS SUMMARY | 2022-12-09 16:46 | XMS REPORT | Continuity of Care Document ---
:1945 Author Organization [facility] t Address [address] [place] [address] Care Team Providers Name Role Phone LA FORTUNE Primary Care Physician Unavailable La Fortune Attending Clinician Unavailable [id number] Attending Clinician Unavailable RONNIE AYALA Attending Clinician [...] Clinician Pepper Crawford Attending Clinician PEPPER CRAWFORD MARIANO Attending Clinician Unavailable MONSE VELAZQUEZ Attending Clinician Unavailable CHILANGO ARMSTRONG NATASHA Attending Clinician Unavailable [id number] Admitting Clinician Unavailable RONNIE AYALA Admitting Clinician Unavailable MINE MOSQUEDA Admitting Clinician Unavailable Mine Mosqueda DO Admitting Clinician ZACHARY BRUNO Admitting Clinician Unavailable Zachary Bruno Admitting Clinician Monse Velazquez Admitting Clinician [phone] MONSE VELAZQUEZ Admitting Clinician Unavailable CHILANGO ARMSTRONG NATASHA Admitting Clinician Unavailable Payers Payer Name Policy Type Policy Effective Date Expiration Date Sour ce Number MEDICARE PART A [id number] 2011 AND B 00:00:00 MEDICARE PART A [id number] 2010 \\T\\ B 00:00:00 BCBS TRADITIONAL [id number] 2014 00:00:00 Blue Cross Blue 6 [id number] 2014 [facility] 00:00:00 - [facility] [id number] BCTX BCTI [id number] MEDICARE NOVITAS [id number] 2011 [facility] 00:00:00 - [facility] MEDICARE NOVITAS [id number] 2011 [facility] 00:00:00 - [facility] MEDICARE NOVITAS [id number] 2011 [facility] 00:00:00 [facility] Problems Condition Condition Condition Status Onset Resolution Last Treating Co mments Source Name Details Category Date Date Treatment Clinician Date E46 E46 Disease Active Univers Unspecifie Unspecifie 5-16 it y of d severe d severe 00:00: [place] protein-ca protein-ca 00 Me dical ajay ajay Branch malnutriti malnutriti on on Elevated Elevated Disease Active Unive rs troponin I troponin I 5-14 it y of level level 00:00: [place] 00 Medical Branch Elevated Elevated Disease Active [...] 5-14 it y of on on 00:00: [place] [facility] Syncope Syncope Disease Active Univers 5-14 ity of 00:00: [place] [address] Medical Branch Anemia Anemia Disease Active Univers associated associated 5-14 it y of with with 00:00: [place] nutritiona nutritiona 00 Me dical l l Branch deficiency deficiency Dyslipidem Dyslipidem Disease Active U nivers ia ia 5-14 ity of 00:00: [place] [facility] Bifascicul Bifascicul Disease Active U nivers ar block ar block 5-14 ity of 00:00: [place] [facility] Atrial Atrial Disease Active Univers flutter flutter 5-14 ity of 00:00: [place] [facility] Branch Encephalop Encephalop Disease Active U nivers athy athy 5-14 ity of 00:00: [place] [facility] Hypoglycem Hypoglycem Disease Active U nivers ia ia 5-13 ity of 00:00: [place] 00 Medical Branch LOW LOW Diagnosis Active 2022-01-02 Mem oria HEMOGLOBIN HEMOGLOBIN 01-02 12:51:00 l COUNT/ COUNT/ 00:00: [place] NEEDING NEEDING 00 DIALYZED DIALYZED Active 01/02/2022 Kimber Celeset PNA DUE TO PNA DUE Diagnosis Active 2022-08-31 Memoria COVID-19 TO 12-14 21:48:00 l VIRUS COVID-19 00:00: [place] VIRUS 00 Active 12/14/2021 Kimber Celeste DIFFICULTY DIFFICULT Diagnosis Active 2021-12-14 [place] BREATHING Y 12-14 17:56:00 l BREATHING 00:00: [place] Active 00 12/14/2021 Kimber Celeste ABNORNAL ABNORNAL Diagnosis Active 2021-12-16 [facility] LAB LAB 06 05:50:00 l Active 08:00: [place] [facility] ANEM[facility], ANEMIA, Diagnosis Active 2021-12-16 Krissyoria COVID-19 COVID-19 11-24 05:50:00 l Active 00:00: [place] 11/24/2021 [facility] [place] LOW LOW Diagnosis Active 2021-11-24 Mem oria HEMOGOBLIN HEMOGOBLIN 11-24 23:20:00 l Active 00:00: [place] 11/24/2021 00 [facility] Cellulitis Cellulitis Disease Active U nivers of right of right 12-29 ity of leg leg 00:00: [address] [id number] Other Problem Common obesity Spirit due to - [facility]I excess [facility] [id number] Metabolic Problem Com mon syndrome Spirit - [facility] [id number] Body mass Problem Com mon index [facility] [BMI] - [facility] 30.0-30.9, [facility] [id number] Frailty Problem Commo n syndrome Spirit in - [facility] geriatric [facility] 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 - 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 - [facility] with [facility] Chronic Chronic Problem Common obstructiv obstructiv Sp jerome e lung e - CHI disease pulmonary St disease, [facility] unspecifie Medica l d COPD Center type [id number] Heart Problem Common failure, Spirit congestive - CHI , etiology unknown [facility] [id number] Constipati Problem Com mon on, Spirit unspecifie - CHI d constipati [facility] on [facility] [id number] Memory Problem Common impairment Spirit of gradual - CHI onset [facility] [id number] HTN, goal Problem Comm on below Spirit 130/80 - CHI [facility] [id number] Anemia of Problem Com mon chronic Spirit disease - [facility] [id number] half-way Problem Com mon (current) Spirit use of - CHI insulin [facility] [id number] Benign Problem Common prostatic [facility] hyperplasi - CHI a without [facility] urinary Medical tract Center symptoms Hypertroph Obstructiv Problem C ommon ic e Spirit 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 Hypertensi Hypertensi Problem C ommon ve heart ve chronic Spir it AND kidney - CHI chronic disease St kidney with stage [facility] disease 5 chronic Medica l stage 5 [...] Active Unknown Commo n in in Spirit CHI [facility] codeine codeine Active Unknown [facility] - [facility] codeine codeine Active Memoria l [place] gabapent gabapent Active Memori a in in l [place] Social History Social Habit Start Date Stop Date Quantity Comments Source History of tobacco Cigarette Smoker University of use [place] [facility] History SDOH University o f Alcohol Std Drinks [place] [facility] History SDOH University o f Alcohol Binge [place] [facility] al [facility] History SDOH Social Unive rsity of Connections [facility] Med ical Together Branch History SDOH Social Unive rsity of Connections [facility] Medical Branch History SDOH Social Unive rsity of Connections [place] [facility] Membership Branch History SDOH Social Unive rsity of Connections [place] [facility] Meetings Branch Alcohol intake 2022-10-31 2022-10-31 Ex-drinker University of 00:00:00 00:00:00 (finding) [place] [facility] History SDOH 2022-10-12 2022-10-12 1 University o f Alcohol Frequency 00:00:00 00:00:00 [facility] edical Branch History SDOH Social 2022-10-12 2022-10-12 5 Unive rsity of Connections Phone 00:00:00 00:00:00 [facility] edical Branch History SDOH Social 2022-10-12 2022-10-12 3 Unive rsity of Connections Living 00:00:00 00:00:00 [place] [facility] History SDOH 2022-10-12 2022-10-12 0 University o f Physical Activity 00:00:00 00:00:00 [place] M edical DPW Branch History SDOH 2022-10-12 2022-10-12 0 University o f Physical Activity 00:00:00 00:00:00 [place] M [facility]ical MPS Branch History SDOH 2022-10-12 2022-10-12 5 University o f Financial 00:00:00 00:00:00 [place] [facility] History SDOH Food 2022-10-12 2022-10-12 1 Univers ity of Worry 00:00:00 00:00:00 [place] [facility] History SDOH Food 2022-10-12 2022-10-12 1 Univers ity of Scarcity 00:00:00 00:00:00 [place] [facility] History SDOH 2022-10-12 2022-10-12 2 University o f Transport Med 00:00:00 00:00:00 [place] Medic al Branch History SDOH 2022-10-12 2022-10-12 2 University o f Transport Non-Med 00:00:00 00:00:00 [place] M edical Branch History SDOH 2022-10-12 2022-10-12 2 University o f Housing Unable to 00:00:00 00:00:00 [place] M edical Pay Branch History SDOH 2022-10-12 2022-10-12 1 University o f Housing Places 00:00:00 00:00:00 [place] Medi yahaira Lived Branch History SDMA 2022-10-12 2022-10-12 2 University o f Housing Homeless 00:00:00 00:00:00 [place] Me dical Last Year Branch Tobacco use and 2022-10-11 2022-10-11 Smokeless Universit y of exposure 00:00:00 00:00:00 tobacco non-user [place] Me dical Branch Tobacco Comment 2022-10-11 2022-10-11 pt has not Universit y of 00:00:00 00:00:00 smoked sice age [place] Med ical 19 Branch Exposure to 2022-09-30 2022-10-10 Not sure University of SARS-CoV-2 (event) 00:00:00 13:56:00 [facility] Branch Sex [birth year] At [birth year] Universit y of 00:00:00 00:00:00 [facility] Branch Smoking Status Start Date Stop Date Source Social History 2021-12-04 02:37:37 2021-12-04 02:37:37 [facility] Medications Ordered Filled Start Stop Current Ordering Indication Dosage Frequency Signature Comments Components Source Medication Medication Date Date Medication? Clinician (SIG) Name Name aspirin 81 Yes [id number] 81mg Take 1 Univers mg EC 5-19 tablet by ity of tablet 00:00: mouth in [place] 00 the Medical morning. Branch aspirin 81 Yes [id number] 81mg Take 1 Univers mg EC 5-19 tablet by ity of tablet 00:00: mouth in [place] 00 the Medical morning. Branch aspirin 81 Yes [id number] 81mg Take 1 Univers mg EC 5-19 tablet by ity of tablet 00:00: mouth in [place] 00 the Medical morning. Branch citalopram Yes 20mg Take 1 Unive rs 20 mg 5-18 tablet by ity of tablet 14:40: mouth in [place] [address] the Medical morning. Branch atorvastati Yes 40mg Take 40 mg Univers n (LIPITOR) 5-18 by mouth ity of 40 mg 14:40: at [facility] 23 bedtime. Medical Branch MULTIVITAMI Yes 1{tbl} Take 1 Tab Univers NS WITH 5-18 by mouth ity of EXTRA C 14:40: daily. [place] [address] Medical Branch citalopram Yes 20mg Take 1 Unive rs 20 mg 5-18 tablet by ity of tablet 14:40: mouth in [place] [address] the Medical morning. Branch atorvastati Yes 40mg Take 40 mg Univers n (LIPITOR) 5-18 by mouth ity of 40 mg 14:40: at [place] [address] bedtime. Medical Branch MULTIVITAMI Yes 1{tbl} Take 1 Tab Univers NS WITH 5-18 by mouth ity of EXTRA C 14:40: daily. [place] [address] Medical Branch citalopram Yes 20mg Take 1 Unive rs 20 mg 5-18 tablet by ity of tablet 14:40: mouth in [place] [address] the Medical morning. Branch atorvastati Yes 40mg Take 40 mg Univers n (LIPITOR) 5-18 by mouth ity of 40 mg 14:40: at [place] tablet 23 bedtime. Medical Branch MULTIVITAMI Yes [...] ity of tablet 12:58: 00:00 mouth in [place] 33 :00 the Medical morning. Branch spironolact 2022- No 25mg Take 25 mg Univers one 5-18 05-18 by mouth ity of (SPIRONOLAC 12:58: 00:00 daily. [place] as TONE) 25 mg 33 :00 Medical tablet Branch INSULIN 2022- No 52U inject 52 Univ ers GLARGINE,HU 5-18 05-18 Units ity of M.REC.ANLOG 12:58: 00:00 under the [place] (LANTUS 33 :00 skin every Medica l SOLOSTAR morning. Branch [place]) carvediloL Yes [id number] 6.25mg Take 1 Univers 6.25 mg 5-18 tablet by ity of tablet 00:00: mouth in [place] 00 the Medical morning Branch and 1 tablet in the evening. Take with meals. pantoprazol Yes [id number] 40mg Take 1 Univers e 40 mg EC 5-18 tablet by ity of tablet 00:00: mouth in [place] 00 the Medical morning. Branch carvediloL Yes [id number] 6.25mg Take 1 Univers 6.25 mg 5-18 tablet by ity of tablet 00:00: mouth in [place] the morning Branch and 1 tablet in the evening. Take with meals. pantoprazol Yes [id number] 40mg Take 1 Univers e 40 mg EC 5-18 tablet by ity of tablet 00:00: mouth in [place] the morning. Branch carvediloL Yes [id number] 6.25mg Take 1 Univers 6.25 mg 5-18 tablet by ity of tablet 00:00: mouth in [place] the morning Branch and 1 tablet in the evening. Take with meals. pantoprazol Yes [id number] 40mg Take 1 Univers e 40 mg EC 5-18 tablet by ity of tablet 00:00: mouth in [place] the morning. Branch amoxicillin 2022- Yes [id number] 500mg Take 1 Univers -pot 5-18 05-26 tablet by ity of clavulanate 00:00: 04:59 [place] 500 mg 00 :00 every 24 Medical (AUGMENTIN) (twenty-fo Br anch 500-125 mg ur) hours tablet for 7 days. amoxicillin 2022- Yes [id number] 500mg Take 1 Univers -pot 5-18 05-26 tablet by ity of clavulanate 00:00: 04:59 [place] 500 mg 00 :00 every 24 Medical (AUGMENTIN) (twenty-fo Br anch 500-125 mg ur) hours tablet for 7 days. FENTanyl PF 0 Yes 25ug 25 mcg, Uni vers (SUBLIMAZE 5-17 Slow IV ity of (PF)) 11:05: Push, [place] injection 22 Q6HPRN, Medical 25 mcg Starting [...] 750 58 Starting Medic al mg on [facility] 10/12/22 at 0806, Until Discontinu ed, Routine, Muscle Spasms atorvastati 0 Yes 40mg 40 mg, Univ ers n (LIPITOR) 5-15 Oral, QHS, it y of tablet 40 02:00: First dose [place] mg 00 on [facility] 10/11/22 at Branch 2100, Until Discontinu ed, Routine docusate 0 Yes 100mg 100 mg, Unive rs (COLACE) 5-15 Oral, BID, ity o f capsule 100 01:30: First dose [place] mg 00 on [facility] 10/11/22 at Branch 2030, Until Discontinu ed, Routine aspirin EC 0 Yes 81mg 81 mg, Unive rs tablet 81 5-14 Oral, ity of mg 14:00: DAILY, [place] 00 [facility] dose Medical [facility] 10/11/22 at 0900, Until Discontinu ed, Routine pantoprazol 0 Yes 40mg 40 mg, Univ ers e 5-14 Oral, ity of (PROTONIX) 14:00: DAILY, [place] EC tablet 00 First dose Medi yahaira 40 mg on [facility] 10/11/22 at 0900, Until Discontinu ed, Routine citalopram 2022-0 Yes 20mg 20 mg, Unive rs (CELEXA) 5-14 Oral, ity of tablet 20 14:00: DAILY, [place] mg 00 First dose Medical on [facility] 10/11/22 at 0900, Until Discontinu ed, Routine azithromyci 2022-0 202- No 500mg 500 mg, U nivers n [...] 81mg Take 81 mg Uni vers (ASPIR-81 - 05-13 by mouth ity o f ORAL) 07:29: 00:00 daily. [place] 15 :00 Medical Branch hydralAZINE 2022- No 100mg Take 100 Univers (APRESOLINE -14 05-13 mg by ity of ) 100 [...] 2315, Until 10/11/22 at 1206, MELO heparin 2023-0 Yes 5000U 5,000 Univers (porcine) 5-14 Units, [...] (Same as: l oral 14:00: Adalat CC, [place] tablet, 00 Procardia extended XL) Give release on empty stomach. Take 1 hour before or 2 hours after meal; "Avoid grapefruit and grapefruit juice". Do not crush Epogen No Notes: Memoria (ESRD) 7-20 Same as: l 14:00: Retacrit) [place] 00 epoetin shannon-epbx 19954 unit/1 ml VL. For dialysis use only. WASTE: F/P - Red; E Red MEDICATION WASTE Product Size: 81994 unit Product Wasted: ___ unit aspirin No Notes: Do Memor ia 7-20 not crush l 14:00: or chew. [place] 00 (Same As: Ecotrin) Procardia No Notes: Memori a XL 30 mg 7-20 (Same as: l oral 14:00: Adalat CC, [place] tablet, 00 Procardia extended XL) Give release on empty stomach. Take 1 hour before or 2 hours after meal; "Avoid grapefruit and grapefruit juice". Do not crush Epogen No Notes: Memoria (ESRD) 7-20 Same as: l 14:00: Retacrit) [place] 00 epoetin shannon-epbx 87850 unit/1 ml VL. For dialysis use only. WASTE: F/P - Red; E Red MEDICATION WASTE Product Size: 40419 unit Product Wasted: ___ unit aspirin No Notes: Do Memor ia 7-20 not crush l 14:00: or chew. [place] 00 (Same As: Ecotrin) Procardia No Notes: Memori a XL 30 mg 7-20 (Same as: l oral 14:00: Adalat CC, [place] tablet, 00 Procardia extended XL) Give release on empty stomach. Take 1 hour before or 2 hours after meal; "Avoid grapefruit and grapefruit juice". Do not crush Epogen No Notes: Memoria (ESRD) 7-20 Same as: l 14:00: Retacrit) [place] 00 epoetin shannon-epbx 02061 unit/1 ml VL. For dialysis use only. WASTE: F/P - Red; E Red MEDICATION WASTE Product Size: 59118 unit Product Wasted: ___ unit aspirin No Notes: Do Memor ia 7-20 not crush l 14:00: or chew. [place] 00 (Same As: Ecotrin) Procardia No Notes: Memori a XL 30 mg 7-20 (Same as: l oral 14:00: Adalat CC, [place] tablet, 00 Procardia extended XL) Give release on empty stomach. Take 1 hour before or 2 hours after meal; "Avoid grapefruit and grapefruit juice". Do not crush Epogen No Notes: Memoria (ESRD) 7-20 Same as: l 14:00: Retacrit) [place] 00 epoetin shannon-epbx 62158 unit/1 ml VL. For dialysis use only. WASTE: F/P - Red; E Red MEDICATION WASTE Product Size: 58605 unit Product Wasted: ___ unit aspirin No Notes: Do Memor ia 7-20 not crush l 14:00: or chew. [place] 00 (Same As: Ecotrin) Procardia No Notes: Memori a XL 30 mg 7-20 (Same as: l oral 14:00: Adalat CC, [place] tablet, 00 Procardia extended XL) Give release on empty stomach. Take 1 hour before or 2 hours after meal; "Avoid grapefruit and grapefruit juice". Do not crush Epogen No Notes: Memoria (ESRD) 7-20 Same as: l 14:00: Retacrit) [place] 00 epoetin shannon-epbx 58745 unit/1 ml VL. For dialysis use only. WASTE: F/P - Red; E Red MEDICATION WASTE Product Size: 37100 unit Product Wasted: ___ unit aspirin No Notes: Do Memor ia 7-20 not crush l 14:00: or chew. [place] 00 (Same As: Ecotrin) Procardia No Notes: Memori a XL 30 mg 7-20 (Same as: l oral 14:00: Adalat CC, [place] tablet, 00 Procardia extended XL) Give release on empty stomach. Take 1 hour before or 2 hours after meal; "Avoid grapefruit and grapefruit juice". Do not crush Epogen No Notes: Memoria (ESRD) 7-20 Same as: l 14:00: Retacrit) [place] 00 epoetin shannon-epbx 08532 unit/1 ml VL. For dialysis use only. WASTE: F/P - Red; E Red MEDICATION WASTE Product Size: 81009 unit Product Wasted: ___ unit aspirin No Notes: Do Memor ia 7-20 not crush l 14:00: or chew. [place] 00 (Same As: Ecotrin) Procardia No Notes: Memori a XL 30 mg 7-20 (Same as: l oral 14:00: Adalat CC, [place] tablet, 00 Procardia extended XL) Give release on empty stomach. Take 1 hour before or 2 hours after meal; "Avoid grapefruit and grapefruit juice". Do not crush Epogen No Notes: Memoria (ESRD) 7-20 Same as: l 14:00: Retacrit) [place] 00 epoetin shannon-epbx 74157 unit/1 ml VL. For dialysis use only. WASTE: F/P - Red; E Red MEDICATION WASTE Product Size: 19539 unit Product Wasted: ___ unit aspirin No [...] (ESRD) 7-20 Same as: l 14:00: Retacrit) [place] 00 epoetin shannon-epbx 64003 unit/1 ml VL. For dialysis use only. WASTE: F/P - Red; E Red MEDICATION WASTE Product Size: 93185 unit Product Wasted: ___ unit aspirin No Notes: Do Memor ia 7-20 not crush l 14:00: or chew. [place] 00 (Same As: Ecotrin) Procardia No Notes: Memori a XL 30 mg 7-20 (Same as: l oral 14:00: Adalat CC, [place] tablet, 00 Procardia extended XL) Give release on empty stomach. Take 1 hour before or 2 hours after meal; "Avoid grapefruit and grapefruit juice". Do not crush Epogen No Notes: Memoria (ESRD) 7-20 Same as: l 14:00: Retacrit) [place] 00 epoetin shannon-epbx 11550 unit/1 ml VL. For dialysis use only. WASTE: F/P - Red; E Red MEDICATION WASTE Product Size: 37050 unit Product Wasted: ___ unit Lipitor No Notes: Memoria 7-20 (Same as: l 02:00: Lipitor) [place] Lipitor No Notes: Memoria 7-20 (Same as: l 02:00: Lipitor) [place] Lipitor No Notes: Memoria 7-20 (Same as: l 02:00: Lipitor) [place] Lipitor No Notes: Memoria 7-20 (Same as: l 02:00: Lipitor) [place] 00 Lipitor No Notes: Memoria 7-20 (Same as: l 02:00: Lipitor) [place] 00 Lipitor No Notes: Memoria 7-20 (Same as: l 02:00: Lipitor) [place] 00 Lipitor No Notes: Memoria 7-20 (Same as: l 02:00: Lipitor) [place] 00 Lipitor No Notes: Memoria 7-20 (Same as: l 02:00: Lipitor) [place] 00 Lipitor No Notes: Memoria 7-20 (Same as: l 02:00: Lipitor) [place] 00 cefdinir No Notes: Memoria 300 mg [...] l oral tablet 21:19: Daily, X 3 [place] 00 day, # 3 tab, 0 Refill(s), Pharmacy: [id number], 177.8, cm, 12/14/21 22:03:00 CDT, Height, 95.2, kg, 12/14/21 22:03:00 CDT, Weight dexamethaso 2021-0 Yes 6 mg = 1 Me moria ne 6 mg 7-19 tab, PO, l oral tablet 21:19: Daily, X 3 [place] day, # 3 tab, 0 Refill(s), Pharmacy: [facility] #[id number], 177.8, cm, 12/14/21 22:03:00 CDT, Height, 95.2, kg, 12/14/21 22:03:00 CDT, Weight dexamethaso 2021-0 Yes 6 mg = 1 Me moria ne 6 mg 7-19 tab, PO, l oral tablet 21:19: Daily, X 3 [place] day, # 3 tab, 0 Refill(s), Pharmacy: [facility] #[id number], 177.8, cm, 12/14/21 22:03:00 CDT, Height, 95.2, kg, 12/14/21 22:03:00 CDT, Weight dexamethaso 2021-0 Yes 6 mg = 1 Me moria ne 6 mg 7-19 tab, PO, l oral tablet 21:19: Daily, X 3 [place] 00 day, # 3 tab, 0 Refill(s), Pharmacy: [facility] #[id number], 177.8, cm, 12/14/21 22:03:00 CDT, Height, 95.2, kg, 12/14/21 22:03:00 CDT, Weight dexamethaso 2022-0 Yes 6 mg = 1 Me moria ne 6 mg 7-19 tab, PO, l oral tablet 21:19: Daily, X 3 [place] 00 day, # 3 tab, 0 Refill(s), Pharmacy: [facility] #[id number], 177.8, cm, 12/14/21 22:03:00 CDT, Height, 95.2, kg, 12/14/21 22:03:00 CDT, Weight dexamethaso 2022-0 Yes 6 mg = 1 Me moria ne 6 mg 7-19 tab, PO, l oral tablet 21:19: Daily, X 3 [place] 00 day, # 3 tab, 0 Refill(s), Pharmacy: [facility] #[id number], 177.8, cm, 12/14/21 22:03:00 CDT, Height, 95.2, kg, 12/14/21 22:03:00 CDT, Weight dexamethaso 2022-0 Yes 6 mg = 1 Me moria ne 6 mg 7-19 tab, PO, l oral tablet 21:19: Daily, X 3 [place] 00 day, # 3 tab, 0 Refill(s), Pharmacy: [facility] #[id number], 177.8, cm, 12/14/21 22:03:00 CDT, Height, 95.2, kg, 12/14/21 22:03:00 CDT, Weight dexamethaso 2022-0 Yes 6 mg = 1 Me moria ne 6 mg 7-19 tab, PO, l oral tablet 21:19: Daily, X 3 [place] 00 day, # 3 tab, 0 Refill(s), Pharmacy: [facility] #[id number], 177.8, cm, 12/14/21 22:03:00 CDT, Height, 95.2, kg, 12/14/21 22:03:00 CDT, Weight dexamethaso 2022-0 Yes 6 mg = 1 Me moria ne 6 mg 7-19 tab, PO, l oral tablet 21:19: Daily, X 3 [place] 00 day, # 3 tab, 0 Refill(s), Pharmacy: [facility] #[id number], 177.8, cm, 12/14/21 22:03:00 CDT, [...] # 14 tab, 0 Refill(s) melatonin 3 2-0 Yes 3 mg = 1 Me moria mg oral 7-19 tab, PO, l tablet 20:29: Bedtime, [place] 00 PRN for insomnia, # 14 tab, 0 Refill(s) melatonin Yes 3 mg = 1 Me moria mg oral 7-19 tab, PO, l tablet 20:29: Bedtime, [place] 00 PRN for insomnia, # 14 tab, [...] 7-19 tab, PO, l tablet 20:29: Bedtime, [place] 00 PRN for insomnia, # 14 tab, 0 Refill(s) melatonin Yes 3 mg = 1 Me moria mg oral 7-19 tab, PO, l tablet 20:29: Bedtime, [place] 00 PRN for insomnia, # 14 tab, 0 Refill(s) melatonin Yes 3 mg = 1 Me moria mg oral 7-19 tab, PO, l tablet 20:29: Bedtime, [place] 00 PRN for insomnia, # 14 tab, [...] 7-19 cap, PO, l capsule 20:28: BID, PRMarvin Guzman n 00 Constipati on, # 20 cap, 0 Refill(s) Colace 100 Yes 100 mg = 1 M emoria mg oral 7-19 cap, PO, l capsule 20:28: BID, PRMarvin Guzman n 00 Constipati on, # 20 cap, 0 Refill(s) Colace 100 Yes 100 mg = 1 M emoria mg oral 7-19 cap, PO, l capsule 20:28: BID, PRMarvin Guzman n 00 Constipati on, # 20 cap, 0 Refill(s) Colace 100 0 Yes 100 mg = 1 M emoria mg oral 7-19 cap, PO, l capsule 20:28: BID, PRN Thomas n 00 Constipati on, # 20 cap, 0 Refill(s) carvedilol Yes 12.5 mg = Me moria 12.5 mg 7-19 1 tab, PO, l oral tablet 20:27: Q12H, # 60 [place] 00 tab, 0 Refill(s) bisacodyl 5 Yes 10 mg = 2 M emoria mg oral 7-19 tab, PO, l enteric 20:27: Daily, PRN Herm silas coated 00 Constipati tablet on, # 20 tab, 0 Refill(s) carvedilol Yes 12.5 mg = Me moria 12.5 mg 7-19 1 tab, PO, l oral tablet 20:27: Q12H, # 60 [place] 00 tab, 0 Refill(s) bisacodyl 5 Yes 10 mg = 2 M emoria mg oral 7-19 tab, PO, l enteric 20:27: Daily, PRN Herm silas coated 00 Constipati tablet on, # 20 tab, 0 Refill(s) carvedilol Yes 12.5 mg = Me moria 12.5 mg 7-19 1 tab, PO, l oral tablet 20:27: Q12H, # 60 [place] 00 tab, 0 Refill(s) bisacodyl 5 Yes [...] l oral tablet 20:27: Q12H, # 60 [place] 00 tab, 0 Refill(s) bisacodyl 5 0 Yes 10 mg = 2 M emoria mg oral 7-19 tab, PO, l enteric 20:27: Daily, PRN Herm silas coated 00 Constipati tablet on, # 20 tab, 0 Refill(s) carvedilol Yes 12.5 mg = Me moria 12.5 mg 7-19 1 tab, PO, l oral tablet 20:27: Q12H, # 60 [place] 00 tab, 0 Refill(s) bisacodyl 5 0 Yes 10 mg = 2 M emoria mg oral 7-19 tab, PO, l enteric 20:27: Daily, PRN Herm silas coated 00 Constipati tablet on, # 20 tab, 0 Refill(s) carvedilol 2022-0 Yes 12.5 mg = Me moria 12.5 [...] a - Same as: l 13:00: Renvela [place] sevelamer No Notes: [facility] a - Same as: l 13:00: Renvela [place] sevelamer No Notes: [facility] a - Same as: l 13:00: Renvela [place] sevelamer No Notes: Memori a - Same as: l 13:00: Renvela [place] sevelamer No Notes: Memori a - Same as: l 13:00: Renvela [place] sevelamer No Notes: Memori a - Same as: l 13:00: Renvela [place] sevelamer No Notes: [facility] a - Same as: l 13:00: Renvela [place] sevelamer No Notes: [facility] a - Same as: l 13:00: Renvela [place] sevelamer No Notes: [facility] a - Same as: l 13:00: Renvela [place] 00 albumin Yes Notes: Lot Heath bobo human 25% 12-16 #: l intravenous 02:33: [place] solution 00 ___ Mfg: (Same as: Plasbumin- 25) "blood product derivative " WASTE: F/P - Red; E -Red MEDICATION WASTE Product Size: 25 gm Product Wasted: ___ gm albumin Yes Notes: Na [place] 25% 12-16 #: l intravenous 02:33: [place] solution ___ Mfg: (Same as: Plasbumin- 25) [...] mercado 25% 12-16 #: l intravenous 02:33: [place] solution ___ Mfg: (Same as: Plasbumin- 25) "blood product derivative " WASTE: F/P - Red; E -Red MEDICATION WASTE Product Size: 25 gm Product Wasted: ___ gm albumin Yes Notes: Na [place] 25% 12-16 #: l intravenous 02:33: [place] solution ___ Mfg: (Same as: Plasbumin- 25) "blood product derivative " WASTE: F/P - Red; E -Red MEDICATION WASTE Product Size: 25 gm Product Wasted: ___ gm albumin Yes Notes: Lot Heath broussard human 25% 12-16 #: l intravenous 02:33: [place] solution 00 ___ Mfg: (Same as: Plasbumin- 25) "blood product derivative " WASTE: F/P - Red; E -Red MEDICATION WASTE Product Size: 25 gm Product Wasted: ___ gm albumin Yes Notes: Lot Heath broussard human 25% 12-16 #: l intravenous 02:33: [place] solution 00 ___ Mfg: (Same as: Plasbumin- [...] mercado 25% 12-16 #: l intravenous 02:33: [place] solution ___ Mfg: (Same as: Plasbumin- 25) "blood product derivative " WASTE: F/P - Red; E -Red MEDICATION WASTE Product Size: 25 gm Product Wasted: ___ gm azithromyci No Notes: Heath bobo n + Sodium 7-18 (Same As: l Chloride 19:00: Zithromax Herm silas 0.9% IV 250 00 IV) mL azithromyci 2022-0 No Notes: Heath bobo n + Sodium 7-18 (Same As: l Chloride 19:00: Zithromax Herm silas 0.9% IV 250 00 IV) mL azithromyci 0 No Notes: Heath bobo n + Sodium 7-18 (Same As: l Chloride 19:00: Zithromax Herm silas 0.9% IV 250 00 IV) mL azithromyci 0 No Notes: Heath bobo n [...] pratropium 7-18 Same as: l 13:00: Combivent [place] Respimat WASTE: Aerosol - Return to Pharmacy [...] pratropium 7-18 Same as: l 13:00: Combivent [place] 00 Respimat WASTE: Aerosol - Return to [...] date: 01/13/22 16:00:00 CDT heparin 2021-0 No Notes: Memoria 7-18 porcine l 02:00: heparin [place] 00 heparin 0 No Notes: [facility] 7-18 porcine l 02:00: heparin [place] 00 heparin 0 No Notes: [facility] 7-18 porcine l 02:00: heparin [place] 00 heparin 2021-0 No Notes: [facility] 7-18 porcine l 02:00: heparin [place] 00 heparin 2021-0 No Notes: [facility] 7-18 porcine l 02:00: heparin [place] 00 heparin 2021-0 No Notes: [facility] 7-18 porcine l 02:00: heparin [place] 00 heparin 2021-0 No Notes: [facility] 7-18 porcine l 02:00: heparin [place] 00 heparin 2021-0 No Notes: [facility] 7-18 porcine l 02:00: heparin [place] 00 heparin 2021-0 No Notes: [facility] 7-18 porcine l 02:00: heparin [place] 00 albuterol-i 0 No Notes: Heath bobo pratropium 7-18 (Same [...] ___ mg azithromyci 2021-0 No Notes: Heath bboo n + Sodium [...] 1000 mg Product Wasted: ___ mg Dextrose 2022-0 No 125 mL, Memori a 10% in 12-14 Rate: 999 l Water IV 23:57: ml/hr, [place] 00 Infuse over: 0.1 hr, Route: IV, Total Volume: 125, Start date: 12/14/21 18:57:00 CDT, Duration: 30 day, Stop date: 01/13/22 18:56:00 CDT, PRN Blood Glucose Results, 0 Dextrose 2022-0 No 125 mL, Memori a 10% in 12-14 Rate: 999 l Water IV 23:57: ml/hr, [place] 00 Infuse over: 0.1 hr, Route: IV, Total Volume: 125, Start date: 12/14/21 18:57:00 CDT, Duration: 30 day, Stop date: 01/13/22 18:56:00 CDT, PRN Blood Glucose Results, 0 Dextrose 2021-0 No 125 mL, Memori a 10% in 12-14 Rate: 999 l Water IV 23:57: ml/hr, [place] 00 Infuse over: 0.1 hr, Route: IV, Total Volume: 125, Start date: 12/14/21 18:57:00 CDT, Duration: 30 day, Stop date: 01/13/22 18:56:00 CDT, PRN Blood Glucose Results, 0 Dextrose 2021-0 No 125 mL, Mem[facility] a 10% in 12-14 Rate: 999 l Water IV 23:57: ml/hr, [place] 00 Infuse over: 0.1 hr, Route: IV, Total Volume: 125, Start date: 12/14/21 18:57:00 CDT, Duration: 30 day, Stop date: 01/13/22 18:56:00 CDT, PRN Blood Glucose Results, 0 Dextrose 2-0 No 125 mL, Memori a 10% in 12-14 Rate: 999 l Water IV 23:57: ml/hr, [place] 00 Infuse over: 0.1 hr, Route: IV, Total Volume: 125, Start date: 12/14/21 18:57:00 CDT, Duration: 30 day, Stop date: 01/13/22 18:56:00 CDT, PRN Blood Glucose Results, 0 Dextrose 2022-0 No 125 mL, Memori a 10% in 12-14 Rate: 999 l Water IV 23:57: ml/hr, [place] 00 Infuse over: 0.1 hr, Route: IV, [...] Rate: 999 l Water IV 23:57: ml/hr, [place] 00 Infuse over: 0.1 hr, Route: IV, Total Volume: 125, Start date: 12/14/21 18:57:00 CDT, Duration: 30 day, Stop date: 01/13/22 18:56:00 CDT, PRN Blood Glucose Results, 0 Dextrose 2022-0 No 250 mL, Memori a 10% in 12-14 Rate: 999 l Water IV 23:53: ml/hr, [place] 00 Infuse over: 0.3 hr, Route: IV, Total Volume: 250, Start date: 12/14/21 18:53:00 CDT, Duration: 30 day, Stop date: 01/13/22 18:52:00 CDT, PRN Blood Glucose Results, 0 Dextrose 2022-0 No 250 mL, Memori a 10% in 12-14 Rate: 999 l Water IV 23:53: ml/hr, [place] 00 Infuse over: 0.3 hr, Route: IV, Total Volume: 250, Start date: 12/14/21 18:53:00 CDT, Duration: 30 day, Stop date: 01/13/22 18:52:00 CDT, PRN Blood Glucose Results, 0 Dextrose 2022-0 No 250 mL, Memori a 10% in 12-14 Rate: 999 l Water IV 23:53: ml/hr, [place] 00 Infuse over: 0.3 hr, Route: IV, [...] Rate: 999 l Water IV 23:53: ml/hr, [place] 00 Infuse over: 0.3 hr, Route: IV, [...] Pharmacy 12-14 Vancomycin l Dosing 23:36: Pharmacy [place] Consult 47 Dosing Protocol PHARMAC Y USE [...] Pharmacy 12-14 Vancomycin l Dosing 23:36: Pharmacy [place] Consult 47 Dosing Protocol PHARMAC Y USE ONLY Note: This is not a medication order. This is a consultati on order. Vancomycin No Notes: [facility] 12-14 Vancomycin l Dosing 23:36: Pharmacy [place] Consult 47 Dosing Protocol PHARMAC Y USE ONLY Note: This is not a medication order. This is a consultati on order. Vancomycin No Notes: [facility] 12-14 Vancomycin l Dosing 23:36: Pharmacy [place] Consult 47 Dosing Protocol PHARMAC Y USE ONLY Note: This is not a medication order. This is a consultati on order. [facility]com[facility] l Dosing 23:36: Pharmacy [place] Consult 47 Dosing Protocol PHARMAC Y USE ONLY Note: This is not a medication order. This is a consultati on order. [facility]com[facility] Vancom[facility] l Dosing [...] MINE 12-14 tab, l 23:30: Route: PO, [place] 00 [...] 1.4% 7-17 Chlorasept l spray 23:30: ic [place] (Same as: Chlorasept ic, Sore Throat [place]) WASTE: F/P - Black; E - Municipal [...] 7-17 (Same as: l tablet 23:30: Pepcid) [place] 5/325 No Notes: Heath bobo oral tablet 7-17 (Same as: l 23:30: [place] 00 325/5) Do not exceed 4gm/day of [...] 1.4% 7-17 Chlorasept l spray 23:30: ic [place] (Same as: Chlorasept ic, Sore Throat [place]) WASTE: F/P - Black; E - Municipal [...] 7-17 (Same as: l tablet 23:30: Pepcid) [place] 5/325 No Notes: Heath bobo oral tablet 7-17 (Same as: l 23:30: [place] 325/5) Do not exceed 4gm/day of acetaminop [...] 1.4% 7-17 Chlorasept l spray 23:30: ic [place] (Same as: Chlorasept ic, Sore Throat [place]) WASTE: F/P - Black; E - Municipal [...] 7-17 (Same as: l tablet 23:30: Pepcid) [place] 5/325 No Notes: Heath bobo oral tablet 7-17 (Same as: l 23:30: [place] 325/5) Do not exceed 4gm/day of acetaminop [...] 1.4% 7-17 Chlorasept l spray 23:30: ic [place] (Same as: Chlorasept ic, Sore Throat [place]) WASTE: F/P - Black; E - Municipal [...] 7-17 (Same as: l tablet 23:30: Pepcid) [place] 5/325 No Notes: Heath bobo oral tablet 7-17 (Same as: l 23:30: [place] 00 325/5) Do not exceed 4gm/day [...] 1.4% 7-17 Chlorasept l spray 23:30: ic [place] (Same as: Chlorasept ic, Sore Throat [place]) WASTE: F/P - Black; E - Municipal [...] 7-17 (Same as: l tablet 23:30: Pepcid) [place] 5/325 No Notes: Heath bobo oral tablet 7-17 (Same as: l 23:30: [place] 325/5) Do not exceed 4gm/day of acetaminop [...] 1.4% 7-17 Chlorasept l spray 23:30: ic [place] (Same as: Chlorasept ic, Sore Throat [place]) WASTE: F/P - Black; E - Municipal [...] 7-17 (Same as: l tablet 23:30: Pepcid) [place] 5/325 No Notes: Heath bobo oral tablet 7-17 (Same as: l 23:30: [place] 00 325/5) Do not exceed 4gm/day of [...] silas inhalation solution Chlorasepti No Notes: Heath bboo c 1.4% 7-17 Chlorasept l spray 23:30: ic [place] (Same as: Chlorasept ic, Sore Throat [place]) WASTE: F/P - Black; E - Municipal [...] 1.4% 7-17 Chlorasept l spray 23:30: ic [place] (Same as: Chlorasept ic, Sore Throat [place]) WASTE: F/P - Black; E - Municipal [...] 7-17 (Same as: l tablet 23:30: Pepcid) [place] 5/325 No Notes: Heath bobo oral tablet 7-17 (Same as: l 23:30: [place] 00 325/5) Do not exceed 4gm/day of acetaminop hen. morphine No 1 mg, 0.5 Heath bobo Sulfate 7-17 mL, Route: l 23:30: IVP, Drug form: SOLN, Q4H, Dosing Weight 95.455, kg, PRN Pain Score 7-10, Start date: 12/14/21 18:30:00 CDT, Duration: 30 day, Stop date: 01/13/22 18:29:00 CDT, 0 [place] 5/325 No Notes: Heath bobo oral tablet 7-17 (Same as: l 23:30: [place] 00 325/5) Do not exceed 4gm/day of [...] 1.4% 7-17 Chlorasept l spray 23:30: ic [place] (Same as: Chlorasept ic, Sore Throat [place]) WASTE: F/P - Black; E - Municipal [...] 7-17 (Same as: l tablet 23:30: Pepcid) [place] 5/325 No Notes: Heath bobo oral tablet 7-17 (Same as: l 23:30: [place] 325/5) Do not exceed 4gm/day of acetaminop hen. morphine 2-0 No 1 mg, 0.5 Heath bobo Sulfate 7-17 mL, Route: l 23:30: IVP, Drug form: SOLN, Q4H, Dosing Weight 95.455, kg, PRN Pain Score 7-10, Start date: 12/14/21 18:30:00 CDT, Duration: 30 day, Stop date: 01/13/22 18:29:00 CDT, 0 Dextrose 2022-0 No 25 mL, Memoria 50% Syringe - Route: l (D50W) 23:29: IVP, Dosing Weight [...] Syringe - Route: l (D50W) 23:29: IVP, Dosing Weight 95.455, kg, PRN, PRN Blood Glucose Results, Start date: 12/14/21 18:29:00 CDT, Duration: 30 day, Stop date: 01/13/22 18:28:00 CDT glucagon 2022-0 No 1 mg, Mem[facility] 7-17 Route: IM, l 23:29: Drug form: [place] 00 PDR/INJ, PRN, Dosing Weight 95.455, kg, PRN Blood Glucose Results, Start date: 12/14/21 18:29:00 CDT, Duration: 30 day, Stop date: 01/13/22 18:28:00 CDT, 0 insulin 2022-0 No Notes: [facility] lispro 7-17 (Same as: l 23:29: Humalog) [place] 00 Roll in palms of hands gently; Do not shake vigorously . WASTE: F/P - Black; E - Municipal Trash Bin Stable for 28 days at room temperatur e. Expires in days from ____Date Dextrose 2021-0 No 25 mL, [facility] 50% Syringe 7-17 Route: l (D50W) 23:29: IVP, [place] 00 Dosing Weight 95.455, kg, PRN, PRN Blood Glucose Results, Start date: 12/14/21 18:29:00 CDT, Duration: 30 day, Stop date: 01/13/22 18:28:00 CDT glucagon 2022-0 No 1 mg, [facility] 7-17 Route: IM, l 23:29: Drug form: [place] 00 PDR/INJ, PRN, Dosing Weight 95.455, kg, PRN Blood Glucose Results, Start date: 12/14/21 18:29:00 CDT, Duration: 30 day, Stop date: 01/13/22 18:28:00 CDT, 0 insulin 2-0 No Notes: [facility] lispro 7-17 (Same as: l 23:29: Humalog) [place] 00 Roll in palms of hands gently; Do not shake vigorously . WASTE: F/P - Black; E - Municipal Trash Bin Stable for 28 days at room temperatur e. Expires in days from ____Date Dextrose 2021-0 No 25 mL, [facility] 50% Syringe 7-17 Route: l (D50W) 23:29: IVP, [place] 00 Dosing Weight 95.455, kg, PRN, PRN Blood Glucose Results, Start date: 12/14/21 18:29:00 CDT, Duration: 30 day, Stop date: 01/13/22 18:28:00 CDT glucagon 2022-0 No 1 mg, [facility] 7-17 Route: IM, l 23:29: Drug form: [place] 00 PDR/INJ, PRN, Dosing Weight 95.455, kg, PRN Blood Glucose Results, Start date: 12/14/21 18:29:00 CDT, Duration: 30 day, Stop date: 01/13/22 18:28:00 CDT, 0 insulin 2022-0 No Notes: [facility] lispro 7-17 (Same as: l 23:29: Humalog) [place] 00 Roll in palms of hands gently; [...] 7-17 Route: IM, l 23:29: Drug form: [place] 00 PDR/INJ, PRN, Dosing Weight 95.455, kg, [...] Syringe 7-17 Route: l (D50W) 23:29: IVP, [place] 00 Dosing Weight 95.455, kg, PRN, PRN Blood Glucose Results, Start date: 12/14/21 18:29:00 CDT, Duration: 30 day, Stop date: 01/13/22 18:28:00 CDT glucagon 2-0 No 1 mg, [facility] 7-17 Route: IM, l 23:29: Drug form: [place] 00 PDR/INJ, PRN, Dosing Weight 95.455, kg, PRN Blood Glucose Results, Start date: 12/14/21 18:29:00 CDT, Duration: 30 day, Stop date: 01/13/22 18:28:00 CDT, 0 insulin 2-0 No Notes: [facility] lispro 7-17 (Same as: l 23:29: Humalog) [place] 00 Roll in palms of hands gently; Do not shake vigorously . WASTE: F/P - Black; E - Municipal Trash Bin Stable for 28 days at room temperatur e. Expires in days from ____Date Dextrose 2022-0 No 25 mL, [facility] 50% Syringe 7-17 Route: l (D50W) 23:29: IVP, [place] 00 Dosing Weight 95.455, kg, PRN, PRN Blood Glucose Results, Start date: 12/14/21 18:29:00 CDT, Duration: 30 day, Stop date: 01/13/22 18:28:00 CDT glucagon 2022-0 No 1 mg, [facility] 7-17 Route: IM, l 23:29: Drug form: [place] 00 PDR/INJ, PRN, Dosing Weight 95.455, kg, [...] [facility] sulfate 7-17 (Zinc l 23:28: sulfate [place] 00 capsule) - 220 mg Zinc sulfate = 50 mg elemental zinc Same as Zinc Sulfate ascorbic No Notes: [facility] acid 7-17 (Same as: l 23:28: Vitamin C) No Notes: [facility] Perles 7-17 (Same As: l 23:28: [place] Perles) "Do Not Crush" zinc No Notes: [facility] sulfate 7-17 (Zinc l 23:28: sulfate [place] 00 capsule) - 220 mg Zinc sulfate [...] Perles 7-17 (Same As: l 23:28: Tessalon [place] Perles) "Do Not Crush" zinc No Notes: [facility] sulfate 7-17 (Zinc l 23:28: sulfate [place] 00 capsule) - 220 mg Zinc sulfate = 50 mg elemental zinc Same as Zinc Sulfate ascorbic No Notes: [facility] acid 7-17 (Same as: l 23:28: Vitamin C) No Notes: [facility] Perles 7-17 (Same As: l 23:28: Tessalon [place] Perles) "Do Not Crush" zinc No Notes: [facility] sulfate 7-17 (Zinc l 23:28: sulfate [place] capsule) - 220 mg Zinc sulfate = 50 mg elemental zinc Same as Zinc Sulfate ascorbic No Notes: [facility] acid 7-17 (Same as: l 23:28: Vitamin C) No Notes: [facility] Perles 7-17 (Same As: l 23:28: Tess[place]on [place] 00 Perles) "Do Not Crush" zinc No [...] [facility] sulfate 7-17 (Zinc l 23:28: sulfate [place] capsule) - 220 mg Zinc sulfate = 50 mg elemental zinc Same as Zinc Sulfate ascorbic No Notes: [facility] acid 7-17 (Same as: l 23:28: Vitamin C) No Notes: [facility] Perles 7-17 (Same As: l 23:28: Tessalon [place] Perles) "Do Not Crush" zinc No Notes: [...] Take with l 22:40: food. Rocephin + 2022-0 No Notes: [facility] Sodium 7-17 (Same As: l Chloride 22:40: Rocephin). Her clayton 0.9% IV 50 00 Use with mL 100 mL NS and infuse over 30 min MEDICATION WASTE Product Size: 1000 mg Product Wasted: ___ mg azithromyci No Notes: Heath bobo n + Sodium 7-17 (Same As: l Chloride 22:40: Zithromax Herm sials 0.9% IV 250 00 IV) mL aspirin [...] No 250 mL, Mem[facility] a 10% in 7-17 Rate: 999 l Water IV 21:08: ml/hr, [...] Rate: 999 l Water IV 21:08: ml/hr, [place] 00 Infuse over: 0.3 hr, Route: IV, Total Volume: 250, Start date: 12/14/21 16:08:00 CDT, Stop date: 12/14/21 16:08:00 CDT, 0 Dextrose 2022-0 No 250 mL, Mem[facility] a 10% in 12-14 Rate: 999 l Water IV 21:08: ml/hr, [place] 00 Infuse over: 0.3 hr, Route: IV, Total Volume: 250, Start date: 12/14/21 16:08:00 CDT, Stop date: 12/14/21 16:08:00 CDT, 0 Dextrose 2022-0 No 250 mL, Mem[facility] a 10% in 12-14 Rate: 999 l Water IV 21:08: ml/hr, [place] 00 Infuse over: 0.3 hr, Route: IV, Total Volume: 250, Start date: 12/14/21 16:08:00 CDT, Stop date: 12/14/21 16:08:00 CDT, 0 Dextrose 2022-0 No 250 mL, Memori a 10% in 12-14 Rate: 999 l Water IV 21:08: ml/hr, [place] 00 Infuse over: 0.3 hr, Route: IV, [...] Rate: 999 l Water IV 21:08: ml/hr, [place] 00 Infuse over: 0.3 hr, Route: IV, [...] Heath bobo 7-17 Route: l 20:41: IVP, [place] Dosing Weight 95.455, kg, ONCE, STAT, Start date: 12/14/21 15:41:00 CDT, Stop date: 12/14/21 15:41:00 CDT, 25 ml = 12.5 gm d50 syringe 2022-0 No 25 mL, Heath bobo 7-17 Route: l 20:41: IVP, [place] Dosing Weight 95.455, kg, ONCE, STAT, Start [...] Heath bobo 7- Route: l 20:41: IVP, [place] 00 Dosing Weight 95.455, kg, ONCE, STAT, Start date: 12/14/21 15:41:00 CDT, Stop date: 12/14/21 15:41:00 CDT, 25 ml = 12.5 gm d50 syringe 2022-0 No 25 mL, Heath bobo 7-17 Route: l 20:41: IVP, [place] 00 Dosing Weight 95.455, kg, ONCE, STAT, Start date: 12/14/21 15:41:00 CDT, Stop date: 12/14/21 15:41:00 CDT, 25 ml = 12.5 gm d50 syringe 2022-0 No 25 mL, Heath bobo 7-17 Route: l 20:41: IVP, [place] 00 Dosing Weight 95.455, kg, ONCE, STAT, Start date: 12/14/21 15:41:00 CDT, Stop date: 12/14/21 15:41:00 CDT, 25 ml = 12.5 gm d50 syringe 2022-0 No 25 mL, Heath bobo 7-17 Route: l 20:41: IVP, [place] 00 Dosing Weight 95.455, kg, ONCE, STAT, [...] Rate: To l 0.9% 01:29: prime line [place] (titrate) 00 and flush 250 mL remaining [...] Rate: To l 0.9% 01:29: prime line [place] (titrate) 00 and flush 250 mL remaining [...] tab, PO, l tablet 19:37: Daily, # [place] 00 30 tab, 0 Refill(s), other Plavix 75 2022-0 Yes 75 mg = 1 [facility] mg oral 6-28 tab, PO, l tablet 19:37: Daily, # [place] 00 30 tab, 0 Refill(s), other Plavix 75 2022-0 Yes 75 mg = 1 [facility] mg oral 6-28 tab, PO, l tablet 19:37: Daily, # [place] 00 30 tab, 0 Refill(s), other Plavix 75 2022-0 Yes 75 mg = 1 [facility] mg oral 6-28 tab, PO, l tablet 19:37: Daily, # [place] 00 30 tab, 0 Refill(s), other Plavix 75 2022-0 Yes 75 mg = 1 [facility] mg oral 6-28 tab, PO, l tablet 19:37: Daily, # [place] 00 30 tab, 0 Refill(s), other Plavix [...] tab, PO, l tablet 19:37: Daily, # [place] 00 30 tab, 0 Refill(s), other Plavix 75 2022-0 Yes 75 mg = 1 [facility] mg oral 6-28 tab, PO, l tablet 19:37: Daily, # [place] 00 30 tab, 0 Refill(s), other Protonix No Notes: For [facility] - IV push l 14:00: reconstitu [place] te with 10 ml 0.9% sodium chloride and push over 2 minutes. (Same as: Protonix) atorvastati No Notes: Heath bobo n -28 (Same as: l 14:00: Lipitor) citalopram No Notes: [facility] - (Same As: l 14:00: CeleXA) Protonix No Notes: For [facility] 6-28 IV push l 14:00: reconstitu [place] 00 te with 10 ml 0.9% sodium chloride and push over 2 minutes. (Same as: Protonix) atorvastati No Notes: Heath bobo n -28 (Same as: l 14:00: Lipitor) [place] citalopram No Notes: [facility] 6-28 (Same As: l 14:00: CeleXA) [place] Protonix No Notes: For [facility] 6-28 IV push l 14:00: reconstitu [place] 00 te with 10 ml 0.9% sodium chloride and push over 2 minutes. (Same as: Protonix) atorvastati No Notes: Heath bobo n 6-28 (Same as: l 14:00: Lipitor) [place] citalopram No Notes: [facility] 6-28 (Same As: l 14:00: CeleXA) [place] Protonix No Notes: For [facility] 6-28 IV push l 14:00: reconstitu [place] 00 te with 10 ml 0.9% sodium chloride and push over 2 minutes. (Same as: Protonix) atorvastati No Notes: Heath bobo n 6-28 (Same as: l 14:00: Lipitor) [place] 00 citalopram No Notes: [facility] 6-28 (Same As: l 14:00: CeleXA) [place] Protonix No Notes: For [facility] 6-28 IV push l 14:00: reconstitu [place] 00 te with 10 ml 0.9% sodium chloride and push over 2 minutes. (Same as: Protonix) atorvastati No Notes: Heath bobo n 6-28 (Same as: l 14:00: Lipitor) [place] citalopram No Notes: [facility] 6-28 (Same As: l 14:00: CeleXA) [place] Protonix No Notes: For [facility] 6-28 IV push l 14:00: reconstitu [place] 00 te with 10 ml 0.9% sodium chloride and push over 2 minutes. (Same as: Protonix) atorvastati No Notes: Haeth bobo n 6-28 (Same as: l 14:00: Lipitor) [place] citalopram No Notes: [facility] 6-28 (Same As: l 14:00: CeleXA) [place] Protonix No Notes: For [facility] 6-28 IV push l 14:00: reconstitu [place] 00 te with 10 ml 0.9% sodium chloride and push over 2 minutes. (Same as: Protonix) atorvastati No Notes: Heath bobo n 6-28 (Same as: l 14:00: Lipitor) [place] 00 citalopram No Notes: [facility] 6-28 (Same As: l 14:00: CeleXA) [place] Protonix No Notes: For [facility] 6-28 [...] n 6-28 (Same as: l 14:00: Lipitor) [place] 00 citalopram No Notes: [facility] 6-28 (Same As: l 14:00: CeleXA) [place] dexamethaso No Notes: Heath bobo ne 6-28 Concentrat l 06:42: ion: [place] 00 4mg/ml dexamethaso No Notes: Heath obbo ne 6-28 Concentrat l 06:42: ion: [place] 00 4mg/ml dexamethaso No Notes: Heath bobo ne 6-28 Concentrat l 06:42: ion: [place] 00 4mg/ml dexamethaso 0 No Notes: Heath bobo ne 6-28 Concentrat l 06:42: ion: [place] 00 4mg/ml dexamethaso 2022-0 No Notes: Heath bobo ne 6-28 Concentrat l 06:42: ion: [place] 00 4mg/ml dexamethaso 2021-0 No Notes: Heath bobo ne 6-28 Concentrat l 06:42: ion: [place] 00 4mg/ml dexamethaso 2021-0 No Notes: Heath bobo ne 6-28 Concentrat l 06:42: ion: [place] 00 4mg/ml dexamethaso 2021-0 No Notes: Heath bobo ne 6-28 Concentrat l 06:42: ion: [place] 00 4mg/ml dexamethaso 2021-0 No Notes: Heath bobo ne 6-28 Concentrat l 06:42: ion: [place] 00 4mg/ml D10W 2021-0 No 125 mL, [facility] (bolus) IV 6-28 Rate: 999 l 06:31: ml/hr, [place] 00 Infuse over: 0.1 hr, Route: IVPB, Total Volume: 125, Start date: 11/25/21 1:31:00 CDT, Duration: 30 day, Stop date: 12/25/21 1:30:00 CDT, PRN Blood Glucose Results, 0 0 No 125 mL, [facility] (bolus) IV 6- Rate: 999 l 06:31: ml/hr, [place] 00 Infuse over: 0.1 hr, Route: IVPB, Total Volume: 125, Start date: 11/25/21 1:31:00 CDT, Duration: 30 day, Stop date: 12/25/21 1:30:00 CDT, PRN Blood Glucose Results, 0 0 No 125 mL, [facility] (bolus) IV 6-28 Rate: 999 l 06:31: ml/hr, [place] 00 Infuse over: 0.1 hr, Route: IVPB, Total Volume: 125, Start date: 11/25/21 1:31:00 CDT, Duration: 30 day, Stop date: 12/25/21 1:30:00 CDT, PRN Blood Glucose Results, 0 D12021-0 No 125 mL, [facility] (bolus) IV 6-28 [...] IV 6- Rate: 999 l 06:31: ml/hr, [place] 00 Infuse over: 0.1 hr, Route: IVPB, Total Volume: 125, Start date: 11/25/21 1:31:00 CDT, Duration: 30 day, Stop date: 12/25/21 1:30:00 CDT, PRN Blood Glucose Results, 0 D10W 2021-0 No 125 mL, [facility] (bolus) IV 6- Rate: 999 l 06:31: ml/hr, [place] 00 Infuse over: 0.1 hr, Route: IVPB, Total Volume: 125, Start date: 11/25/21 1:31:00 CDT, Duration: 30 day, Stop date: 12/25/21 1:30:00 CDT, PRN Blood Glucose Results, 0 D10W 2021-0 No 125 mL, [facility] (bolus) IV 6-28 Rate: 999 l 06:31: ml/hr, [place] 00 Infuse over: 0.1 hr, Route: IVPB, Total Volume: 125, Start date: 11/25/21 1:31:00 CDT, Duration: 30 day, Stop date: 12/25/21 1:30:00 CDT, PRN Blood Glucose Results, 0 D10W 2021-0 No 125 mL, [facility] (bolus) IV 6-28 Rate: 999 l 06:31: ml/hr, [place] 00 Infuse over: 0.1 hr, Route: IVPB, [...] IV 6-28 Rate: 999 l 06:23: ml/hr, [place] 00 Infuse over: 0.3 hr, Route: IVPB, [...] IV 6-28 Rate: 999 l 06:23: ml/hr, [place] 00 Infuse over: 0.3 hr, Route: IVPB, Total Volume: 250, Start date: 11/25/21 1:23:00 CDT, Duration: 30 day, Stop date: 12/25/21 1:22:00 CDT, PRN Blood Glucose Results, 0 D10W 2021-0 No 250 mL, [facility] (bolus) IV 11-25 Rate: 999 l 06:23: ml/hr, [place] 00 Infuse over: 0.3 hr, Route: IVPB, [...] Syringe 11-25 Route: l (D50W) 05:55: IVP, [place] 00 Dosing Weight 94.545, kg, PRN, PRN [...] 11-25 Route: IM, l 05:55: Drug form: [place] 00 PDR/INJ, PRN, Dosing Weight 94.545, kg, PRN Blood Glucose Results, Start date: 11/25/21 0:55:00 CDT, Duration: 30 day, Stop date: 12/25/21 0:54:00 CDT, 0 insulin 2021-0 No Notes: Memoria lispro - (Same as: l 05:55: Humalog) [place] 00 Roll in palms of hands gently; [...] 11-25 Route: IM, l 05:55: Drug form: [place] 00 PDR/INJ, PRN, Dosing Weight 94.545, kg, [...] Syringe 11-25 Route: l (D50W) 05:55: IVP, [place] 00 Dosing Weight 94.545, kg, PRN, PRN [...] 11-25 Route: IM, l 05:55: Drug form: [place] 00 PDR/INJ, PRN, Dosing Weight 94.545, kg, [...] lispro 6-28 (Same as: l 05:55: Humalog) [place] 00 Roll in palms of hands gently; [...] Syringe 11-25 Route: l (D50W) 05:55: IVP, [place] 00 Dosing Weight 94.545, kg, PRN, PRN [...] Memoria 11-25 (Same as: l 05:54: Zofran) [place] 00 MEDICATION WASTE Product Size: 4 mg Product Wasted: ___ mg Tylenol No Notes: Do Memor ia 11-25 not exceed l 05:54: 4 gm/day. [place] 00 (Same as: Tylenol) [place] No Notes: Memoria Perles 11-25 (Same As: l 05:54: [place] 00 Perles) "Do Not Crush" simethicone No Notes: Haeth bobo 6-28 (Same as: l 05:54: Mylicon) [place] 00 senna 8.6 No Notes: Memori a mg oral 6-28 (Same as: l tablet 05:54: Senokot) [place] 00 Colace 50 No Notes: Memori a mg oral 6-28 (Same as: l capsule 05:54: Colace) [place] 00 Zofran No Notes: Memoria 6-28 (Same as: l 05:54: Zofran) [place] 00 MEDICATION WASTE Product Size: 4 mg Product Wasted: ___ mg Tylenol No Notes: Do Memor ia 6-28 not exceed l 05:54: 4 gm/day. [place] 00 (Same as: Tylenol) [place] No Notes: [...] Memoria 6-28 (Same as: l 05:54: Zofran) [place] 00 MEDICATION WASTE Product Size: 4 mg Product Wasted: ___ mg Tylenol No Notes: Do Memor ia 6-28 not exceed l 05:54: 4 gm/day. [place] 00 (Same as: Tylenol) [place] No Notes: Memoria Perles 6-28 (Same As: l 05:54: [place] 00 Perles) "Do Not Crush" simethicone 2022-0 No Notes: Heath bobo 6-28 (Same as: [...] Perles 6-28 (Same As: l 05:54: Tessalon [place] 00 Perles) "Do Not Crush" simethicone No Notes: Heath bobo 6-28 (Same as: l 05:54: Mylicon) [place] 8.6 No Notes: Memori a mg oral 6-28 (Same as: l tablet 05:54: Senokot) [place] 00 Colace 50 No Notes: Memori a mg oral 6-28 (Same as: l capsule 05:54: Colace) [place] 00 Zofran No Notes: Memoria 6-28 (Same as: l 05:54: Zofran) [place] 00 MEDICATION WASTE Product Size: 4 mg Product Wasted: ___ mg Tylenol No Notes: Do Memor ia 6-28 not exceed l 05:54: 4 gm/day. [place] 00 (Same as: Tylenol) [place] No Notes: Memoria Perles 6-28 (Same As: l 05:54: Tessalon [place] 00 Perles) "Do Not Crush" simethicone No [...] 6-28 (Same As: l 05:54: [place] Perles) "Do Not Crush" simethicone No Notes: Heath bobo 6-28 (Same as: l 05:54: Mylicon) senna 8.6 No Notes: Memori a mg oral 6-28 (Same as: l tablet 05:54: Senokot) [place] 00 Colace 50 No Notes: Memori a mg oral 6-28 (Same as: l capsule 05:54: Colace) [place] 00 Zofran No Notes: Memoria 6-28 (Same as: l 05:54: Zofran) MEDICATION WASTE Product Size: 4 mg Product Wasted: ___ mg Tylenol No Notes: Do Memor ia 6-28 not exceed l 05:54: 4 gm/day. [place] 00 (Same as: Tylenol) [place] No Notes: [...] Perles 6-28 (Same As: l 05:54: Tess[place]on [place] 00 Perles) "Do Not Crush" simethicone No [...] units/mL 05:53: [place] 00 s solution Dialyvite 2021-0 Yes 0 [...] KwikPen 100 6-28 Refill(s) l units/mL 05:53: [facility] s solution Dialyvite 0 Yes 0 Memoria [...] Refill(s) l units/mL 05:53: s solution Dialyvite Yes 0 Memoria 800 Ultra D 6-28 Refill(s) l oral tablet 05:53: glipiZIDE Yes 0 Memoria 10 mg oral 6-28 Refill(s) l tablet 05:53: citalopram Yes 0 [facility] 20 mg oral 6-28 Refill(s) l tablet 05:53: pantoprazol Yes 0 Memori a e 40 mg 6-28 Refill(s) l oral 05:53: coated tablet clindamycin Yes 0 Memori a 300 mg oral 6-28 Refill(s) l capsule 05:53: clopidogrel 0 No 0 Memori a 75 mg oral 6-28 Refill(s) l tablet 05:53: atorvastati 0 Yes 0 Memori a n 40 mg 6-28 Refill(s) l oral tablet 05:53: Basaglar 0 Yes 0 Memoria KwikPen 100 6-28 Refill(s) l units/mL 05:53: s solution Dialyvite Yes 0 Memoria 800 [...] oria 6-28 IV push l 03:37: reconstitu [place] 00 te with 10 ml 0.9% sodium chloride and push over 2 minutes. (Same as: Protonix) Protonix No Notes: For Mem oria 6-28 IV push l 03:37: reconstitu [place] 00 te with 10 ml 0.9% sodium chloride and push over 2 minutes. (Same as: Protonix) Protonix No Notes: For Mem oria 6-28 IV push l 03:37: reconstitu [place] 00 te with 10 ml 0.9% sodium chloride and push over 2 minutes. (Same as: Protonix) Protonix No Notes: For Mem oria 6-28 IV push l 03:37: reconstitu [place] 00 te with 10 ml 0.9% sodium [...] oria 6-28 IV push l 03:37: reconstitu [place] 00 te with 10 ml 0.9% sodium chloride and push over 2 minutes. (Same as: Protonix) Protonix No Notes: For Mem oria 6-28 IV push l 03:37: reconstitu [place] 00 te with 10 ml 0.9% sodium chloride and push over 2 minutes. (Same as: Protonix) Protonix 2022-0 No Notes: For Mem oria 6-28 IV push l 03:37: reconstitu [place] 00 te with 10 ml 0.9% sodium chloride and push over 2 minutes. (Same as: Protonix) Advair HFA Advair HFA Yes La 2 puffs Common 1-15 [facility]: - [facility] 00 [facility] 2018-05 Yes La 1 needle Common Ultra-Fine Ultra-Fine 0-09 [facility] with Sp jerome Christina Pen Christina Pen 00:00: Basaglar - [facility] [place] [facility] 2018-05 No QD BD Ultra-Fine Ultra-Fine 0-09 Ultra-Fine Christina Pen Christina Pen 00:00: Christina Pen [place] 4mm [place] 4mm 00 [place] x 32Gm x 32Gm 4mm x 32Gm [facility] 2018-05 No QD BD Ultra-Fine Ultra-Fine 0-09 Ultra-Fine Christina Pen Christina Pen 00:00: Christina Pen [place] 4mm [place] 4mm 00 [place] x 32Gm x 32Gm 4mm x 32Gm [facility] 2018-05 No QD BD Ultra-Fine Ultra-Fine 0-09 Ultra-Fine Christina Pen Christina Pen 00:00: Christina Pen [place] 4mm [place] 4mm 00 [place] x 32Gm x 32Gm 4mm x 32Gm [facility] 2018-05 No QD BD Ultra-Fine Ultra-Fine 0-09 Ultra-Fine Christina Pen Christina Pen 00:00: Christina Pen [place] 4mm [place] 4mm 00 [place] x 32Gm x 32Gm 4mm x 32Gm [facility] 2018-05 No QD BD Ultra-Fine Ultra-Fine 0-09 Ultra-Fine Christina Pen Christina Pen 00:00: Christina Pen [place] 4mm [place] 4mm 00 [place] x 32Gm x 32Gm 4mm x 32Gm [facility] 2018-05 No QD BD Ultra-Fine Ultra-Fine 0-09 Ultra-Fine Christina Pen Christina Pen 00:00: Christina Pen [place] 4mm [place] 4mm 00 [place] x 32Gm x 32Gm 4mm x 32Gm [facility] 2018-05 No QD BD Ultra-Fine Ultra-Fine 0-09 Ultra-Fine Christina Pen Christina Pen 00:00: Christina Pen [place] 4mm [place] 4mm 00 [place] x 32Gm x 32Gm 4mm x 32Gm [facility] 2018-05 No QD BD Ultra-Fine Ultra-Fine 0-09 Ultra-Fine Christina Pen Christina Pen 00:00: Christina Pen [place] 4mm [place] 4mm 00 [place] x 32Gm x 32Gm 4mm x 32Gm [facility] 2018- No QD BD Ultra-Fine Ultra-Fine 0-09 Ultra-Fine Christina Pen Christina Pen 00:00: Christina Pen [place] 4mm [place] 4mm 00 [place] x 32Gm x 32Gm 4mm x 32Gm [facility] 2018- No QD BD Ultra-Fine Ultra-Fine 0-09 Ultra-Fine Christina Pen Christina Pen 00:00: Christina Pen [place] 4mm [place] 4mm 00 [place] x 32Gm x 32Gm 4mm x 32Gm [facility] 2018- No QD BD Ultra-Fine Ultra-Fine 0-09 Ultra-Fine Christina Pen Christina Pen 00:00: Christina Pen [place] 4mm [place] 4mm 00 [place] x 32Gm x 32Gm 4mm x 32Gm [facility] 2018- No QD BD Ultra-Fine Ultra-Fine 0-09 Ultra-Fine Christina Pen Christina Pen 00:00: Christina Pen [place] 4mm [place] 4mm 00 [place] x 32Gm x 32Gm 4mm x 32Gm [facility] 2018- No QD BD Ultra-Fine Ultra-Fine 0-09 Ultra-Fine Christina Pen Christina Pen 00:00: Christina Pen [place] 4mm [place] 4mm 00 [place] x 32Gm x 32Gm 4mm x 32Gm [facility] 2018-05 No QD BD Ultra-Fine Ultra-Fine 0-09 Ultra-Fine Christina Pen Christina Pen 00:00: Christina Pen [place] 4mm [place] 4mm 00 [place] x 32Gm x 32Gm 4mm x 32Gm [facility] 2018- No QD BD Ultra-Fine Ultra-Fine 0-09 Ultra-Fine Christina Pen Christina Pen 00:00: Christina Pen [place] 4mm [place] 4mm 00 [place] x 32Gm x 32Gm 4mm x 32Gm [facility] 2018- No QD BD Ultra-Fine Ultra-Fine 0-09 Ultra-Fine Christina Pen Christina Pen 00:00: Christina Pen [place] 4mm [place] 4mm 00 [place] x 32Gm x 32Gm 4mm x 32Gm [facility] 2018- No QD BD Ultra-Fine Ultra-Fine 0-09 Ultra-Fine Christina Pen Christina Pen 00:00: Christina Pen [place] 4mm [place] 4mm 00 [place] x 32Gm x 32Gm 4mm x 32Gm [facility] 2018- No QD BD Ultra-Fine Ultra-Fine 0-09 Ultra-Fine Christina Pen Christina Pen 00:00: Christina Pen [place] 4mm [place] 4mm 00 [place] x 32Gm x 32Gm 4mm x 32Gm BD 2018-05 No QD BD Ultra-Fine Ultra-Fine 0-09 Ultra-Fine Christina Pen Christina Pen 00:00: Christina Pen [place] 4mm [place] 4mm 00 [place] x 32Gm x 32Gm 4mm x 32Gm BD 2018-05 No QD BD Ultra-Fine Ultra-Fine 0-09 Ultra-Fine Christina Pen Christina Pen 00:00: Christina Pen [place] 4mm [place] 4mm 00 [place] x 32Gm x 32Gm 4mm x 32Gm BD 2018-05 No QD BD Ultra-Fine Ultra-Fine 0-09 Ultra-Fine Christina Pen Christina Pen 00:00: Christina Pen [place] 4mm [place] 4mm 00 [place] x 32Gm x 32Gm 4mm x 32Gm BD 2018-05 No QD BD Ultra-Fine Ultra-Fine 0-09 Ultra-Fine Christina Pen Christina Pen 00:00: Christina Pen [place] 4mm [place] 4mm 00 [place] x 32Gm x 32Gm 4mm x 32Gm PreserVisio PreserVisio No PreserVisi n AREDS - [...] 1 tablet C ommon 750 750 [facility] Basaglar Basaglar Yes [place] 52 Units C ommon KwikPen KwikPen [facility] PreserVisio PreserVisio Yes La as Common n AREDS n AREDS [facility] directed [facility] Citalopram Citalopram Yes La 1 tablet Common Hydrobromid Hydrobromid [facility] e e [facility] Stool Stool Yes La not Common Softener Softener [facility] defined Spi rit [facility] Gentle Gentle Yes La 1 tablet Commo n Laxative Laxative [facility] as needed S pirit [facility] Atorvastati Atorvastati Yes La 1 tablet Common n Calcium n Calcium [facility] Contour Contour Yes La USE 3 Common Test Test Fortune TIMES A [facility] Eliquis 2.5 Eliquis 2.5 Yes La 1 tablet Common mg mg [facility] Multivitami Multivitami Yes La as Common n Adult n Adult [facility] directed [facility] Carvedilol Carvedilol Yes La TAKE 1 Common [facility] TABLET BY Spirit MOUTH - [facility] TWICE A St DAY ON [facility]IAL[facility] Medical DAYS [place] Atorvastati Atorvastati Yes La TAKE 1 Common n Calcium n Calcium [facility] TABLET BY Spirit MOUTH - [facility] EVERY DAY [facility] GlipiZIDE GlipiZIDE Yes La 1 tablet Common [facility] Basaglar Basaglar Yes La 50 Units C ommon KwikPen KwikPen [facility] Advair HFA Advair HFA [...] Dexcom G6 Dexcom G6 No Dexcom G6 [employer] - [employer] - [employer] - Carvedilol Carvedilol No Carvedilol 12.5 MG [...] Dexcom G6 Dexcom G6 No Dexcom G6 [employer] - [employer] - [employer] - glipiZIDE 5 glipiZIDE 5 No 1{table [...] Dexcom G6 Dexcom G6 No Dexcom G6 [employer] - [employer] - [employer] - Ipratropium Ipratropium No Ipratropiu -Albuterol -Albuterol [...] Dexcom G6 Dexcom G6 No Dexcom G6 [employer] - [employer] - [employer] - Gentle Gentle No 1{table QD Gentle [...] Dexcom G6 Dexcom G6 No Dexcom G6 [employer] - [employer] - [employer] - PreserVisio PreserVisio No PreserVisi n AREDS [...] Dexcom G6 Dexcom G6 No Dexcom G6 [employer] - [employer] - [employer] - Advair HFA Advair HFA No 2{puffs [...] Dexcom G6 Dexcom G6 No Dexcom G6 [employer] - [employer] - [employer] - Advair HFA Advair HFA No 2{puffs [...] Dexcom G6 Dexcom G6 No Dexcom G6 [employer] - [employer] - [employer] - Advair HFA Advair HFA No 2{puffs [...] Dexcom G6 Dexcom G6 No Dexcom G6 [employer] - [employer] - [employer] - Atorvastati Atorvastati No 1{table QD Atorvastat [...] Dexcom G6 Dexcom G6 No Dexcom G6 [employer] - [employer] - [employer] - Atorvastati Atorvastati No Atorvastat n Calcium [...] Dexcom G6 Dexcom G6 No Dexcom G6 [employer] - [employer] - [employer] - Atorvastati Atorvastati No Atorvastat n Calcium [...] KwikPen 100 KwikPen UNIT/ML UNIT/ML 100 UNIT/ML Immunizations Ordered Immunization Filled Immunization Date Status Commen ts Source Name Name FluAD FluAD 2021-03-30 Completed [facility]:13[facility] - [facility] FluAD FluAD 2021-03-30 Completed [facility] 13:13:00 - [facility] FluAD FluAD 2021-03-30 Completed [facility] 13:13:00 - [facility] FluAD FluAD 2021-03-30 Completed [facility] 13:13:00 - [facility] FluAD FluAD 2021-03-30 Completed [facility] 13:13:00 - [facility] FluAD FluAD 2021-03-30 Completed [facility] 13:13:00 - [facility] FluAD FluAD 2021-03-30 Completed [facility] 13:13:00 - [facility] FluAD FluAD 2021-03-30 Completed [facility] 13:13:00 - [facility] FluAD FluAD 2021-03-30 Completed [facility] 13:13:00 - [facility] FluAD FluAD 2021-03-30 Completed [facility] 13:13:00 - [facility] FluAD FluAD 2021-03-30 Completed [facility] 13:13:00 - [facility] FluAD FluAD 2021-03-30 Completed [facility] 13:13:00 - [facility] FluAD FluAD 2021-03-30 Completed [facility] 13:13:00 - [facility] FluAD FluAD 2021-03-30 Completed [facility] 13:13:00 - [facility] FluAD FluAD 2021-03-30 Completed [facility] 13:13:00 - [facility] FluAD FluAD 2021-03-30 Completed [facility] 13:13:00 - [facility] FluAD FluAD 2021-03-30 Completed [facility] 13:13:00 - [facility] FluAD FluAD 2021-03-30 Completed [facility] 13:13:00 - [facility] FluAD FluAD 2021-03-30 Completed [facility] 13:13:00 - [facility] FluAD FluAD 2021-03-30 Completed [facility] 13:13:00 [facility] COVID-19 Vaccine COVID-19 Vaccine 2020-08-19 Completed [facility] (Andrea) (Andrea) 09:17:00 [facility] COVID-19 Vaccine COVID-19 Vaccine 2020-08-19 Completed [facility] (Andrea) (Andrea) 09:17:00 [facility] COVID-19 Vaccine COVID-19 Vaccine 2020-08-19 Completed [facility] (Andrea) (Andrea) 09:17:00 [facility] COVID-19 Vaccine COVID-19 Vaccine 2020-08-19 Completed [facility] (Andrea) (Andrea) 09:17:00 [facility] COVID-19 Vaccine COVID-19 Vaccine 2020-08-19 Completed [facility] (Andrea) (Andrea) 09:17:00 [facility] COVID-19 Vaccine COVID-19 Vaccine 2020-08-19 Completed [facility] (Andrea) (Andrea) 09:17:00 [facility] COVID-19 Vaccine COVID-19 Vaccine 2020-08-19 Completed [facility] (Andrea) (Andrea) 09:17: [facility] COVID-19 Vaccine COVID-19 Vaccine 2020-08-19 Completed [facility] (Andrea) (Andrea) 09:17:00 [facility] COVID-19 Vaccine COVID-19 Vaccine 2020-08-19 Completed [facility] (Andrea) (Andrea) 09:17:00 [facility] COVID-19 Vaccine COVID-19 Vaccine 2020-08-19 Completed [facility] (Andrea) (Andrea) 09:17:00 - [facility] COVID-19 Vaccine COVID-19 Vaccine 2020-08-19 Completed [facility] (Andrea) (Andrea) 09:17:00 - [facility] COVID-19 Vaccine COVID-19 Vaccine 2020-08-19 Completed [facility] (Andrea) (Andrea) 09:17:00 - [facility] COVID-19 Vaccine COVID-19 Vaccine 2020-08-19 Completed [facility] (Andrea) (Andrea) 09:17:00 [facility] COVID-19 Vaccine COVID-19 Vaccine 2020-08-19 Completed [facility] (Andrea) (Andrea) 09:17:00 [facility] COVID-19 Vaccine COVID-19 Vaccine 2020-08-19 Completed [facility] (Andrea) (Andrea) 09:17:00 - [facility] COVID-19 Vaccine COVID-19 Vaccine 2020-08-19 Completed [facility] (Andrea) (Andrea) 09:17:00 [facility] COVID-19 Vaccine COVID-19 Vaccine 2020-08-19 Completed [facility] ([facility]rea) (Andrea) 09:17:00 [facility] COVID-19 Vaccine COVID-19 Vaccine 2020-08-19 Completed [facility] (Andrea) (Andrea) 09:17:00 - [facility] COVID-19 Vaccine COVID-19 Vaccine 2020-08-19 Completed [facility] (Andrea) (Andrea) 09:17:00 [facility] COVID-19 Vaccine COVID-19 Vaccine 2020-08-19 Completed [facility] (Andrea) (Andrea) 09:17:00 [facility] COVID-19 Vaccine COVID-19 Vaccine 2020-08-19 Completed [facility] ([facility]rea) (Andrea) 09:17:00 [facility] COVID-19 Vaccine COVID-19 Vaccine 2020-08-19 Completed [facility] (Andrea) (Andrea) 09:17:00 - [facility] Vital Signs Vital Name Observation Time Observation Value Comments Source Systolic blood 2022-10-31 17:36:00 132 mm[Hg] [facility] Diastolic blood 2022-10-31 17:36:00 61 mm[Hg] [facility] Heart rate 2022-10-31 17:36:00 67 /min [facility] Respiratory rate 2022-10-31 17:36:00 19 /min [facility] Oxygen saturation in 2022-10-31 17:36:00 100 /min [facility] Body temperature 2022-10-31 13:59:00 37.39 Makayla [facility] Body height 2022-10-31 13:59:00 177.8 cm [facility] Body weight 2022-10-31 13:59:00 71.668 kg [facility] BMI 2022-10-31 13:59:00 22.67 kg/m2 [facility] Heart rate 2022-10-15 19:00:00 92 /min [facility] Respiratory rate 2022-10-15 19:00:00 13 /min [facility] Oxygen saturation in 2022-10-15 19:00:00 86 /min [facility] Arterial blood by [facility] Pulse oximetry Branch Systolic blood 2022-10-15 17:00:00 144 mm[Hg] [facility] Diastolic blood 2022-10-15 17:00:00 53 mm[Hg] [facility] Body temperature 2022-10-15 16:08:00 37.44 Makayla [facility] Body weight 2022-10-15 14:00:00 70.489 kg [facility] BMI 2022-10-15 14:00:00 25.86 kg/m2 [facility] Body height 2022-10-10 19:00:00 165.1 cm [facility] height 2022-02-17 15:00:00 70 [in_i] [facility] - [facility] weight 2022-02-17 15:00:00 208 [lb_av] [facility] - [facility] temperature 2022-02-17 15:00:00 98.1 [degF] [facility] - [facility] bmi 2022-02-17 15:00:00 29.84 kg/m2 [facility] - [facility] blood pressure 2022-02-17 15:00:00 121 mm[Hg] [facility] - systolic [facility] blood pressure 2022-02-17 15:00:00 61 mm[Hg] [facility] - diastolic [facility] height 2022-01-06 14:30:00 70 [in_i] [facility] weight 2022-01-06 14:30:00 208 [lb_av] [facility] bmi 2022-01-06 14:30:00 29.84 kg/m2 [facility] - [facility] blood pressure 2022-01-06 14:30:00 137 mm[Hg] [facility] - systolic [facility] blood pressure 2022-01-06 14:30:00 79 mm[Hg] [facility] - diastolic [facility] height 2021-11-03 09:45:00 70 [in_i] [facility] - [facility] weight 2021-11-03 09:45:00 210 [lb_av] [facility] - [facility] bmi 2021-11-03 09:45:00 30.13 kg/m2 [facility] - [facility] blood pressure 2021-11-03 09:45:00 144 mm[Hg] [facility] - systolic [facility] blood pressure 2021-11-03 09:45:00 86 mm[Hg] [facility] - diastolic [facility] height 2021-07-28 14:10:00 70 [in_i] [facility] - [facility] weight 2021-07-28 14:10:00 211.8 [lb_av] [facility] temperature 2021-07-28 14:10:00 97.5 [degF] Common [facility] bmi 2021-07-28 14:10:00 30.39 kg/m2 [facility] oximetry 2021-07-28 14:10:00 93 % Common [facility] respiratory rate 2021-07-28 14:10:00 16 /min Comm on [facility] blood pressure 2021-07-28 14:10:00 134 mm[Hg] Common [facility] - systolic [facility] blood pressure 2021-07-28 14:10:00 63 mm[Hg] Common [facility] - diastolic [facility] height 2021-07-28 13:20:00 70 [in_i] Common [facility] weight 2021-07-28 13:20:00 211.8 [lb_av] [facility] temperature 2021-07-28 13:20:00 97.5 [degF] [facility] bmi 2021-07-28 13:20:00 30.39 kg/m2 Common [facility] oximetry 2021-07-28 13:20:00 93 % Common [facility] respiratory rate 2021-07-28 13:20:00 16 /min Comm on [facility] blood pressure 2021-07-28 13:20:00 134 mm[Hg] Common [facility] - systolic [facility] blood pressure 2021-07-28 13:20:00 62 mm[Hg] [facility] - diastolic [facility] height 2021-04-28 13:10:00 70 [in_i] Common [facility] weight 2021-04-28 13:10:00 215.9 [lb_av] [facility] temperature 2021-04-28 13:10:00 97.3 [degF] Common [facility] bmi 2021-04-28 13:10:00 30.98 kg/m2 Common [facility] oximetry 2021-04-28 13:10:00 95 % Common [facility] respiratory rate 2021-04-28 13:10:00 17 /min Comm on [facility] blood pressure 2021-04-28 13:10:00 121 mm[Hg] Common [facility] - systolic [facility] blood pressure 2021-04-28 13:10:00 60 mm[Hg] Common [facility] - diastolic [facility] height 2021-03-12 09:30:00 70 [in_i] Common [facility] weight 2021-03-12 09:30:00 211.4 [lb_av] Common [facility] temperature 2021-03-12 09:30:00 97.7 [degF] Common [facility] bmi 2021-03-12 09:30:00 30.33 kg/m2 [facility] oximetry 2021-03-12 09:30:00 95 % [facility] respiratory rate 2021-03-12 09:30:00 16 /min Comm on [facility] blood pressure 2021-03-12 09:30:00 132 mm[Hg] Common [facility] - systolic [facility] blood pressure 2021-03-12 09:30:00 67 mm[Hg] Common [facility] - diastolic [facility] Heart Rate 2022-01-02 21:14:00 Kimber Celeste Respitory Rate 2022-01-02 21:14:00 Anup Valdovinosann Systolic (mm Hg) 2022-01-02 21:14:00 Heath arabella [place] Diastolic (mm Hg) 2022-01-02 21:14:00 Mem orial [place] Height 2022-01-02 17:28:00 167.64 cm [facility] BMI Calculated 2022-01-02 17:28:00 Memori al [place] Weight 2022-01-02 17:28:00 Kimber Celeste Systolic (mm Hg) 2022-01-02 17:28:00 Heath rial [place] Diastolic (mm Hg) 2022-01-02 17:28:00 Mem orial [place] Heart Rate 2022-01-02 17:28:00 [facility] [place] Respitory Rate 2022-01-02 17:28:00 Memori al [place] Temperature Oral (F) 2022-01-02 17:28:00 97.5 F [facility] [place] Temperature Oral (F) 2021-12-17 00:00:00 98.0 F [facility] [place] Heart Rate 2021-12-17 00:00:00 [facility] [place] Respitory Rate 2021-12-17 00:00:00 Memori [facility] [place] Systolic (mm Hg) 2021-12-17 00:00:00 Heath rial [place] Diastolic (mm Hg) 2021-12-17 00:00:00 Mem o[facility] [place] Heart Rate 2021-12-16 21:00:00 [facility] [place] Respitory Rate 2021-12-16 21:00:00 Memori al [place] Systolic (mm Hg) 2021-12-16 21:00:00 Heath rial [place] Diastolic (mm Hg) 2021-12-16 21:00:00 Mem [facility] [place] Temperature Oral (F) 2021-12-16 21:00:00 98.0 F [facility] [place] Heart Rate 2021-12-16 20:20:00 [facility] [place] Respitory Rate 2021-12-16 20:20:00 Memori al [place] Systolic (mm Hg) 2021-12-16 20:20:00 Heath rial [place] Diastolic (mm Hg) 2021-12-16 20:20:00 Mem orial [place] Temperature Oral (F) 2021-12-16 20:20:00 97.3 F [facility] [place] Heart Rate 2021-12-15 08:58:06 [facility] [place] Systolic (mm Hg) 2021-12-15 08:58:01 Heath rial [place] Diastolic (mm Hg) 2021-12-15 08:58:01 Mem orial [place] Heart Rate 2021-12-15 08:58:01 [facility] [place] Temperature Oral (F) 2021-12-15 08:57:27 98.2 F [facility] [place] Temperature Oral (F) 2021-12-15 05:00:00 97.5 F [facility] [place] Heart Rate 2021-12-15 05:00:00 [facility] [place] Systolic (mm Hg) 2021-12-15 05:00:00 Heath rial [place] Diastolic (mm Hg) 2021-12-15 05:00:00 Mem o[facility] [place] Height 2021-12-15 03:03:00 177.8 cm [facility] [place] Weight 2021-12-15 03:03:00 [facility] [place] BMI Calculated 2021-12-15 03:03:00 Memori [facility] [place] Temperature Oral (F) 2021-12-15 01:20:46 97.4 F [facility] [place] Systolic (mm Hg) 2021-12-15 01:20:42 Heath rial [place] Diastolic (mm Hg) 2021-12-15 01:20:42 Mem orial [place] Respitory Rate 2021-12-15 00:45:00 Memori [facility] [place] Height 2021-12-15 00:13:00 172.72 cm [facility] [place] BMI Calculated 2021-12-15 00:13:00 Mem[facility] [place] Weight 2021-12-15 00:13:00 [facility] [place] Respitory Rate 2021-12-14 23:56:00 Memori al [place] Height 2021-12-14 23:34:00 172.72 cm [facility] [place] Weight 2021-12-14 23:34:00 [facility] [place] Respitory Rate 2021-12-14 23:18:00 Mem[facility] [place] BMI Calculated 2021-12-14 19:29:00 [facility] [place] Temperature Oral (F) 2021-12-04 14:04:00 97.9 F [facility] [place] Heart Rate 2021-12-04 14:04:00 [facility] [place] Respitory Rate 2021-12-04 14:04:00 Memori al [place] Systolic (mm Hg) 2021-12-04 14:04:00 Heath rial [place] Diastolic (mm Hg) 2021-12-04 14:04:00 Mem orial [place] Temperature Oral (F) 2021-12-04 12:30:00 97.9 F [facility] [place] Heart Rate 2021-12-04 12:30:00 [facility] [place] Respitory Rate 2021-12-04 12:30:00 Memori [facility] [place] Systolic (mm Hg) 2021-12-04 12:30:00 Heath rial [place] Diastolic (mm Hg) 2021-12-04 12:30:00 Mem orial [place] Respitory Rate 2021-12-04 11:45:00 Memori [facility] [place] Heart Rate 2021-12-04 11:45:00 [facility] [place] Temperature Oral (F) 2021-12-04 11:45:00 98.4 F [facility] [place] Systolic (mm Hg) 2021-12-04 04:57:00 Heath rial [place] Diastolic (mm Hg) 2021-12-04 04:57:00 Mem orial [place] Weight 2021-12-03 23:22:00 [facility] [place] Respitory Rate 2021-11-27 00:01:00 Memori al [place] Heart Rate 2021-11-26 21:50:00 [facility] [place] Respitory Rate 2021-11-26 21:50:00 Memori [facility] [place] Systolic (mm Hg) 2021-11-26 21:50:00 Heath rial [place] Diastolic (mm Hg) 2021-11-26 21:50:00 Mem orial [place] Temperature Oral (F) 2021-11-26 18:40:00 98.0 F [facility] [place] Heart Rate 2021-11-26 18:40:00 [facility] [place] Respitory Rate 2021-11-26 18:40:00 Memori al [place] Systolic (mm Hg) 2021-11-26 18:40:00 Heath rial [place] Diastolic (mm Hg) 2021-11-26 18:40:00 Mem orial [place] Heart Rate 2021-11-26 16:41:35 [facility] [place] Systolic (mm Hg) 2021-11-26 16:41:27 Heath rial [place] Diastolic (mm Hg) 2021-11-26 16:41:27 Mem orial [place] Temperature Oral (F) 2021-11-26 16:40:28 98.4 F [facility] [place] Temperature Oral (F) 2021-11-26 13:00:17 98.3 F [facility] [place] Height 2021-11-25 03:24:00 177.8 cm [facility] [place] BMI Calculated 2021-11-25 03:24:00 Memori [facility] [place] Weight 2021-11-25 03:24:00 [facility] [place] Procedures Procedure Date / Time Performing Clinician Source Performed CT ABDOMEN PELVIS WO 2022-10-31 14:52:[address] [facility] CONTRAST Medical Branch CT THORAX WO CONTRAST 2022-10-31 14:52:20 Ronnie Ayala [facility] [place] LIPASE 2022-10-31 14:22:00 Ronnie Ayala [facility] COMP. METABOLIC PANEL 2022-10-31 14:22:00 Ronnie Ayala [facility] ([id number]) [facility] [place] CBC WITH DIFF 2022-10-31 14:22:00 Ronnie Ayala [facility] NOTICE OF PRIVACY 2022-10-31 13:54:24 Doctor Unassigned, [facility] PRACTICES [facility] [facility] CONSENT/REFUSAL FOR 2022-10-31 13:53:28 Doctor Unassigned, [facility] DIAGNOSIS AND TREATMENT [facility] POCT GLUCOSE 2022-10-15 16:16:00 Mine Mosqueda [facility] (AUTOMATED) [facility] XR CHEST 1 VW 2022-10-15 14:27:00 Abdoul [facility] POCT GLUCOSE 2022-10-15 12:24:00 [place] [facility] (AUTOMATED) [facility] BASIC METABOLIC PANEL 2022-10-15 09:26:00 Marianna Barbour [facility] (NA, K, CL, CO2, Medical Branch GLUCOSE, BUN, CREATININE, CA) CBC WITH DIFF 2022-10-15 09:26:00 Marianna Barbour [facility] PREPARE PACKED RBC 2022-10-15 05:15:09 Anita Sanchez [facility] POCT GLUCOSE 2022-10-15 01:54:00 Mine Mosqueda [facility] (AUTOMATED) [facility] XR CHEST 1 VW 2022-10-15 01:09:38 Abdoul [facility] IR THORACENTESIS WITH 2022-10-14 23:00:51 Marianna Barbour [facility] IMAGING Medical Branch GLUCOSE BODY FLUID 2022-10-14 22:53:00 Marianna Barbour [facility] T.PROTEIN BODY FLUID 2022-10-14 22:53:00 Marianna Barbour [facility] BODY FLUID DIRECT COUNT 2022-10-14 22:53:00 Marianna Barbour [facility] BODY FLUID 2022-10-14 22:53:00 Marianna Barbour [facility] CULTURE(AEROBIC/ANAEROB [facility] IC) LDH TOTAL BODY FLUID 2022-10-14 22:53:00 Marianna Barbour [facility] XR CHEST 1 VW 2022-10-14 22:38:00 Josi Schreiber [facility] POCT GLUCOSE 2022-10-14 21:38:00 Dominic [facility] (AUTOMATED) [facility] HEPATITIS B SURFACE 2022-10-14 19:06:00 Anita Sanchez [facility] ANTIBODY [facility] HEPATITIS B SURFACE 2022-10-14 19:06:00 Anita Sanchez [facility] ANTIGEN [facility] POCT GLUCOSE 2022-10-14 16:36:00 Mine Mosqueda [facility] (AUTOMATED) [facility] POCT GLUCOSE 2022-10-14 12:50:00 Mine Mosqueda [facility] (AUTOMATED) [facility] PHOSPHORUS 2022-10-14 08:27:00 Mine Mosqueda [facility] MAGNESIUM 2022-10-14 08:27:00 Mine Mosqueda [facility] BASIC METABOLIC PANEL 2022-10-14 08:27:00 Mine Mosqueda [facility] (NA, K, CL, CO2, Medical Branch GLUCOSE, BUN, CREATININE, CA) VANCOMYCIN TROUGH 2022-10-14 08:27:00 Dahiana Albert [facility] CBC WITH DIFF 2022-10-14 08:27:00 Mine Mosqueda [facility] DISCLOSURE AND CONSENT, 2022-10-14 05:01:00 Doctor Unassigned, [facility] MEDICAL AND SURGICAL [place] [facility] PROCEDURES POCT GLUCOSE 2022-10-14 03:13:00 Mine Mosqueda [facility] (AUTOMATED) [facility] POCT GLUCOSE 2022-10-13 21:41:00 Dominic, [facility] (AUTOMATED) [facility] POCT GLUCOSE 2022-10-13 16:25:00 Dominic [facility] (AUTOMATED) [facility] POCT GLUCOSE 2022-10-13 12:34:00 Dominic [facility] (AUTOMATED) [facility] BASIC METABOLIC PANEL 2022-10-13 09:16:00 Mine Mosqueda [facility] (NA, K, CL, CO2, Medical Branch GLUCOSE, BUN, CREATININE, CA) CBC WITH DIFF 2022-10-13 09:16:00 [facility] POCT GLUCOSE 2022-10-13 01:24:00 Dominic [facility] (AUTOMATED) [facility] POCT GLUCOSE 2022-10-12 21:23:00 Dominic [facility] (AUTOMATED) [facility] TRANSFUSE PACKED RBC 2022-10-12 18:39:00 Luis A [facility] PREPARE PACKED RBC 2022-10-12 18:29:53 Luis A [facility] POCT GLUCOSE 2022-10-12 16:47:00 Dominic [facility] (AUTOMATED) [facility] BLOOD CULTURE SCREEN 2022-10-12 15:52:00 Luis A [facility] BLOOD CULTURE SCREEN 2022-10-12 15:40:00 Luis A [facility] XR CHEST 1 VW 2022-10-12 14:31:35 [facility] POCT GLUCOSE 2022-10-12 12:44:00 Mine Mosqueda [facility] (AUTOMATED) [facility] PHOSPHORUS 2022-10-12 09:58:00 [facility] MAGNESIUM 2022-10-12 09:58:00 [facility] TROPONIN I 2022-10-12 09:58:[address] [facility] BASIC METABOLIC PANEL 2022-10-12 09:58:00 Mine Mosqueda [facility] (NA, K, CL, CO2, Medical Branch GLUCOSE, BUN, CREATININE, CA) LIPID PANEL 2022-10-12 09:58:00 Tim Alejandro [facility] (19702)(TOTAL Medical Branch CHOLESTEROL, TRIGLYCERIDES, HDL) CBC WITH DIFF 2022-10-12 09:58:00 [facility] N-TERMINAL PRO-BNP 2022-10-12 09:58:00 Tim Alejandro [facility] POCT GLUCOSE 2022-10-12 06:42:00 Dominic [facility] (AUTOMATED) [facility] TROPONIN I 2022-10-12 03:10:00 Luis A [facility] POCT GLUCOSE 2022-10-12 01:19:00 Dominic [facility] (AUTOMATED) [facility] OCCULT (GUAIAC) BLOOD 2022-10-11 21:58:00 Mine Mosqueda [facility] POCT GLUCOSE 2022-10-11 21:19:00 Dominic [facility] (AUTOMATED) [facility] TOTAL IRON BINDING 2022-10-11 18:20:00 Mine Mosqueda [facility] CAPACITY [facility] TROPONIN I 2022-10-11 18:20:00 Luis A [facility] RETICULOCYTES AUTOMATED 2022-10-11 18:20:00 [facility] PROCALCITONIN 2022-10-11 18:20:00 [facility] IRON 2022-10-11 18:20:00 [facility] POCT GLUCOSE 2022-10-11 16:58:00 Dominic [facility] (AUTOMATED) [facility] POCT GLUCOSE 2022-10-11 16:05:00 Dominic [facility] (AUTOMATED) [facility] ABORH CONFIRMATION (LAB 2022-10-11 15:23:00 Luis A [facility]) [facility] [place] TROPONIN I 2022-10-11 15:08:00 Luis A [facility] POCT GLUCOSE 2022-10-11 14:22:00 Mine Mosqueda [facility] (AUTOMATED) [facility] TRANSTHORACIC ECHO 2022-10-11 13:32:00 Luis A [facility] (TTE) COMPLETE Medical Branch POCT GLUCOSE 2022-10-11 13:04:00 Dominic, [facility] (AUTOMATED) [facility] POCT GLUCOSE 2022-10-11 12:04:00 Dominic [facility] (AUTOMATED) [facility] POCT GLUCOSE 2022-10-11 11:21:00 Dominic [facility] (AUTOMATED) [facility] HB ABO GROUPING 2022-10-11 11:20:00 Luis A [facility] PHOSPHORUS 2022-10-11 09:41:00 Luis A [facility] MAGNESIUM 2022-10-11 09:41:00 Luis A [facility] TROPONIN I 2022-10-11 09:41:00 Luis A [facility] BASIC METABOLIC PANEL 2022-10-11 09:41:00 Luis A [facility] (NA, K, CL, CO2, Medical Branch GLUCOSE, BUN, CREATININE, CA) CBC WITHOUT DIFF 2022-10-11 09:41:00 Luis A [facility] POCT GLUCOSE 2022-10-11 09:41:00 Dominic [facility] (AUTOMATED) [facility] N-TERMINAL PRO-BNP 2022-10-11 09:41:00 [facility] PO[facility] GLU[facility]SE 2022-10-11 08:43:00 Dominic [facility] (AUTOMATED) Medical Branch POCT GLUCOSE 2022-10-11 07:36:00 Dominic George [...] MSSA SCREEN BY 2022-10-11 00:16:00 Mine Mosqueda [facility] PCR, CATHIE [facility] CRITICAL CARE 2022-10-10 23:43:37 Fabian Fernandes [facility] POCT GLUCOSE 2022-10-10 23:20:00 Mine Mosqueda [facility] (AUTOMATED) Medical [facility] POCT GLUCOSE 2022-10-10 21:42:00 Fabian Fernandes [facility] (AUTOMATED) [facility] POCT GLUCOSE 2022-10-10 21:25:00 Dom Fabian [facility] (AUTOMATED) [facility] [place] HB ECG ROUTINE & RHYTHM 2022-10-10 21:20:02 Fabian Fernandes [facility] STRIP [facility] AC PANEL 21 + LACTIC 2022-10-10 20:50:[address] [facility] ACID [facility] POCT GLUCOSE 2022-10-10 20:32:00 Fabian Fernandes [facility] (AUTOMATED) [facility] CT THORAX WO CONTRAST 2022-10-10 20:31:25 Fabian Fernandes [facility] CT ABDOMEN PELVIS WO 2022-10-10 20:30:[address] [facility] CONTRAST [facility] CT HEAD WO CONTRAST 2022-10-10 20:30:[address] [facility] POCT GLUCOSE 2022-10-10 19:43:00 Fabian Fernandes [facility] (AUTOMATED) [facility] XR CHEST 1 VW 2022-10-10 19:40:00 Fabian Fernandes [facility] BLOOD CULTURE SCREEN 2022-10-10 19:38:00 Fabian Fernandes [facility] BLOOD CULTURE WORKUP 2022-10-10 19:38:00 Fabian Fernandes [facility] GRAM POSITIVE BLOOD 2022-10-10 19:38:00 Fabian Fernandes [facility] PATHOGENS DNA Medical Branch PROBE-AEROBIC ASSIGNMENT OF BENEFITS 2022-10-10 19:11:20 Doctor Unassigned, [facility] CONSENT/REFUSAL FOR 2022-10-10 19:10:59 Doctor Unassigned, [facility] DIAGNOSIS AND TREATMENT [facility] TROPONIN I 2022-10-10 19:08:00 Dom [facility] COMP. METABOLIC PANEL 2022-10-10 19:08:00 Fabian Fernandes [facility] ([id number]) [facility] CBC WITH DIFF 2022-10-10 19:08:00 [facility] GLYCOSYLATED HEMOGLOBIN 2022-10-10 19:08:00 Mine Mosqueda [facility] (A1C) [facility] N-TERMINAL PRO-BNP 2022-10-10 19:08:00 Fabian Fernandes [facility] POCT GLUCOSE 2022-10-10 18:58:00 [facility] (AUTOMATED) [facility] [id number] 2021-10-18 00:00:00 Andrade day Encounters Start End Encounter Admission Attending Care Care Encounter Source Date/Time Date/Time Type Type Clinicians Facility Department ID 2022-11-10 Outpatient [facility], STLMLC STLMLC [id number] Common 11:36:01 [place] [address] [facility] 2022-05-20 Outpatient [facility], STLMLC STLMLC [id number] Common 08:24:01 [place] [address] [facility] 2022-05-15 Outpatient [facility], STLMLC STLMLC [id number] Common 08:53:00 [place] [address] [facility] 2022-05-11 Outpatient [facility], STLMLC STLMLC [id number] Common 14:49:00 [place] [address] [facility] 2022-05-08 Outpatient [facility], STLMLC STLMLC [id number] Common 10:15:01 [place] [address] [facility] 2022-05-07 Outpatient [facility], STLMLC STLMLC [id number] Common 11:53:00 [place] [address] [facility] 2022-02-18 Outpatient [facility], STLMLC STLMLC [id number] Common 12:05:01 [place] [address] [facility] 2022-01-01 Outpatient [facility], STLMLC STLMLC [id number] Common 10:24:01 La [facility] 2021-12-29 Outpatient [facility], STLMLC STLMLC [id number] Common 08:34:00 La [facility] 2021-12-16 Outpatient [facility] [id number] [place] 14:42:21 [id number] [facility] 2021-11-19 Outpatient [facility], STLMLC STLMLC [id number] Common 08:42:01 La [facility] 2021-11-03 Outpatient [facility], STLMLC STLMLC [id number] Common 10:33:01 La [facility] 2021-10-15 Outpatient 3 [id number] ENCPL REF [id number] [facility] 08:19:25 0518 [facility] [facility] 2021-10-14 Outpatient 3 [id number] ENCPL REF [id number] [facility] 11:59:03 0517 [facility] [place] [facility] 2021-06-25 Outpatient [facility], STLMLC STLMLC [id number] [place] 14:22:06 [place] [address] [facility] 2021-06-25 Outpatient [facility], STLMLC STLMLC [id number] Common 14:13:51 [place] [address] [facility] 2021-06-25 Outpatient [facility], STLMLC STLMLC [id number] Common 13:38:12 [place] [address] [facility] 2021-06-25 Outpatient [facility], STLMLC STLMLC [id number] [place] 12:43:29 [place] [address] [facility] 2021-06-25 Outpatient [facility], STLMLC STLMLC [id number] Common 12:42:27 [place] [address] [facility] 2021-06-25 Outpatient [facility], STLMLC STLMLC [id number] [place] 12:31:12 [place] [address] [facility] 2021-06-25 Outpatient [facility], STLMLC STLMLC [id number] Common 12:31:03 [place] [address] [facility] 2021-06-25 Outpatient [facility], STLMLC STLMLC [id number] Common 12:30:21 [place] [address] [facility] 2021-06-25 Outpatient [facility], STLMLC STLMLC [id number] Common 11:00:43 [place] [address] [facility] 2022-10-31 2022-10-31 Emergency [facility] [id number] Univers 09:00:00 12:40:00 RONNIE ity [facility] 2022-10-31 2022-10-31 Emergency [facility] [id number] Univers 09:00:00 12:40:00 Ronnie CARRASQUILLO [id number] i ty of NATASHA [id number] [facility] [id number] [facility] 084 Branch 2022-10-16 2022-10-16 Transition CHACHO DavisMarvin [id number] Univers 00:00:00 00:00:00 of Care Ubaldo VALLE [id number] ity GWENDOLYN [id number] [facility] [phone] [facility] 403 Branch 2022-10-10 2022-10-15 Inpatient X [facility] [id number] Univers 13:54:00 14:40:00 [facility]22-10-10 2022-10-15 [facility] Fabian Fernandes [facility] [id number] Univers 13:54:00 14:40:00 Encounter Mine Mosqueda [id number] ity of Marianna [place] [id number] [facility] [id number] [facility] 080 Branch 2022-07-03 2022-07-03 (TEL) STLMLC STLMLC [id number] Co mmon 00:00:00 00:00:00 [facility] 2022-06-08 2022-06-08 (TEL) STLMLC STLMLC [id number] Co mmon 00:00:00 00:00:00 [facility] 2022-05-06 2022-05-06 (TEL) STLMLC STLMLC [id number] Co mmon 00:00:00 00:00:00 [facility] 2022-04-03 2022-04-03 (TEL) STLMLC STLMLC [id number] Co mmon 00:00:00 00:00:00 [facility] 2022-02-17 2022-02-17 (TEL) STLMLC STLMLC [id number] Co mmon 00:00:00 00:00:00 [facility] 2022-02-17 2022-02-17 OFFICE STLMLC STLMLC [id number] Co mmon 00:00:00 00:00:00 VISIT [facility] PT - CHI LEVEL 4 [facility] 2022-01-06 2022-01-06 OFFICE STLMLC STLMLC [id number] Co mmon 00:00:00 00:00:00 VISIT [facility] PT - CHI LEVEL 4 [facility] 2022-01-02 2022-01-02 Emergency [facility] [id number] Memoria 17:12:00 21:33:00 latrice Celeste 03 [facility] 2022-01-02 2022-01-02 Emergency [facility] [id number] Memoria 17:12:00 21:33:00 latrice Celeste 03 [facility] 2022-01-02 2022-01-02 Emergency E LONG, BL MHBL [id number] MHBL 12:12:00 16:33:00 CAREY 2022-01-02 2022-01-02 Outpatient [place], PL PL [id number] 12:12:00 16:33:00 Carey R 03 2022-01-01 2022-01-01 (TEL) STLMLC STLMLC [id number] Co mmon 00:00:00 00:00:00 [facility] 2021-12-31 2021-12-31 (TEL) STLMLC STLMLC [id number] Co mmon 00:00:00 00:00:00 [facility] 2021-12-14 2021-12-17 [facility]patient [facility] [id number] Memoria 19:19:49 03:14:00 latrice Ferrera [facility] 2021-12-14 2021-12-17 Inpatient [facility] [id number] Memoria 19:19:49 03:14:00 r [facility] 2021-12-14 2021-12-16 Inpatient E SAJJA, MHBL MED [id number] MHBL 18:26:00 22:14:00 ZACHARY 2021-12-14 2021-12-16 Outpatient Sajja, MHPL MHPL [id number] 14:19:49 22:14:00 Zachary 2021-12-14 2021-12-14 Outpatient Ajibade, MHPL MHPL [id number] 14:19:49 14:19:49 [facility] 2021-12-03 2021-12-04 Emergency [facility] [id number] Memoria 23:19:26 14:53:00 r [facility] 2021-12-03 2021-12-04 Emergency [facility] [id number] Memoria 23:19:26 14:53:00 r Booker [facility] 2021-12-03 2021-12-04 Outpatient Fadowole, MHPL MHPL [id number] 18:19:26 09:53:00 [facility] 2021-12-03 2021-12-04 Emergency E FADOWOLE, MHBL MHBL [id number] MHBL 18:19:00 09:53:00 PEPPER 2021-12-01 2021-12-01 Outpatient COH COH PIJFJKR ZIB COH 00:00:00 00:00:00 [id number] 2021-11-25 2021-11-27 Observatio [facility] [id number] Memoria 03:23:10 00:12:00 n r [place] 00 [facility] 2021-11-25 2021-11-27 Observatio [facility] [id number] Memoria 03:23:10 00:12:00 n r [facility] 2021-11-25 2021-11-26 Outpatient E AJIBADE, MHBL MED [id number] MHBL 10:37:00 19:12:00 MONSE 2021-11-24 2021-11-26 Outpatient Ajibade, MHPL MHPL [id number] 22:23:10 19:12:00 Monse Akinwal2021-11-24 2021-11-26 Outpatient Ajibade, MHPL MHPL [id number] 22:23:10 19:12:00 Monse 00 Akinwal2021-11-24 2021-11-24 (TEL) STLMLC STLMLC [id number] Co mmon 00:00:00 00:00:00 [facility] 2021-10-16 2021-11-03 Inpatient 3 NATHANIEL, ENCPL GILDA [id number] [facility] 23:26:00 21:40:00 CHILANGO 0519 [facility] 2021-11-03 2021-11-03 OFFICE STLMLC STLMLC [id number] Co mmon 00:00:00 00:00:00 VISIT NEW [facility] it PT LEVEL 4 - [facility] 2021-10-17 2021-10-17 (TEL) STLMLC STLMLC [id number] Co mmon 00:00:00 00:00:00 [facility] 2021-08-12 2021-08-12 (TEL) STLMLC STLMLC [id number] Co mmon 00:00:00 00:00:00 [facility] - [facility] 2021-07-28 2021-07-28 OFFICE STLMLC STLMLC [id number] Co mmon 00:00:00 00:00:00 VISIT [facility] ESTAB PT - CHI LEVEL 4 [facility] 2021-07-28 2021-07-28 SUB ANNUAL STLMLC STLMLC [id number] Common 00:00:00 00:00:00 MCR [facility] WELLNESS - CHI VISIT [facility] 2021-06-12 2021-06-12 (TEL) STLMLC STLMLC [id number] Co mmon 00:00:00 00:00:00 [facility] - [facility] 2021-05-21 2021-05-21 (TEL) STLMLC STLMLC [id number] Co mmon 00:00:00 00:00:00 [facility] 2021-04-28 2021-04-28 OFFICE STLMLC STLMLC [id number] Co mmon 00:00:00 00:00:00 VISIT [facility] 4 [facility] 2021-03-26 2021-03-26 (TEL) STLMLC STLMLC [id number] Co mmon 00:00:00 00:00:00 [facility] 2021-03-12 2021-03-12 OFFICE STLMLC STLMLC [id number] Co mmon 00:00:00 00:00:00 VISIT [facility] 4 [facility] 2021-02-10 2021-02-10 Outpatient STLMLC STLMLC [id number] Common 00:00:00 00:00:00 [facility] 2021-01-31 2021-01-31 Outpatient STLMLC STLMLC [id number] Common 00:00:00 00:00:00 [facility] 2021-01-13 2021-01-13 Outpatient STLMLC STLMLC [id number] Common 00:00:00 00:00:00 [facility] 2021-01-08 2021-01-08 Outpatient STLMLC STLMLC [id number] Common 00:00:00 00:00:00 [facility] 2020-12-31 2020-12-31 Outpatient STLMLC STLMLC [id number] Common 00:00:00 00:00:00 [facility] 2020-12-11 2020-12-11 Outpatient STLMLC STLMLC [id number] Common 00:00:00 00:00:00 [facility] 2020-08-19 2020-08-19 Outpatient STLMLC STLMLC [id number] Common 00:00:00 00:00:00 [facility] 2020-07-19 2020-07-19 Outpatient STLMLC STLMLC [id number] Common 00:00:00 00:00:00 [facility] 2020-07-15 2020-07-15 Outpatient STLMLC STLMLC [id number] Common 00:00:00 00:00:00 [facility] 2020-06-14 2020-06-14 Outpatient STLMLC STLMLC [id number] Common 00:00:00 00:00:00 [facility] 2020-06-05 2020-06-05 Outpatient STLMLC STLMLC [id number] Common 00:00:00 00:00:00 [facility] 2020-04-23 2020-04-23 Outpatient STLMLC STLMLC [id number] Common 00:00:00 00:00:00 [facility] 2020-04-22 2020-04-22 Outpatient STLMLC STLMLC [id number] Common 00:00:00 00:00:00 [facility] 2020-04-17 2020-04-17 Outpatient STLMLC STLMLC [id number] Common 00:00:00 00:00:00 [facility] 2020-01-15 2020-01-15 [id number] Common 10:45:00 10:45:[address] [facility] 2019-10-16 2019-10-16 [id number] Common 13:00:00 13:00:[address] [facility] 2019-07-17 2019-07-17 [id number] Common 13:45:00 13:45:[address] [facility] 2019-06-14 2019-06-14 [facility] [id number] Common 11:45:00 11:45:[address] [facility] 2019-06-07 2019-06-07 [id number] Common 11:57:00 11:57:[address] [facility] 2019-05-17 2019-05-17 [facility] [id number] Common 11:30:00 11:30:[address] [facility] 2019-04-24 2019-04-24 [facility] [id number] Common 14:52:00 14:52:[address] [facility] 2019-04-19 2019-04-19 [facility] [id number] Common 14:45:00 14:45:[address] [facility] 2019-04-06 2019-04-06 [facility] [id number] Common 08:35:00 08:35:[address] [facility] 2019-04-04 2019-04-04 [facility] [id number] Common 08:34:00 08:34:[address] [facility] 2019-03-08 2019-03-08 [facility] [id number] Common 10:57:00 10:57:[address] [facility] 2019-02-20 2019-02-20 [facility] [id number] Common 14:00:00 14:00:[address] [facility] Results Test Description Test Time Test Comments Results Result Comments Source COMP. METABOLIC PANEL (81103) 2022-10-31 15:25:34 Test Item Value Reference Range Interpretation Comme nts NA (test code = 1085677520) 136 mmol/L 135-145 K (test code = 0163769958) 4.7 mmol/L 3.5-5.0 CL (test code = 7997036287) 96 mmol/L 98-108 L CO2 TOTAL (test code = 7032741957) 31 mmol/L 23-31 AGAP (test code = 9361651175) 9 2-16 BUN (test code = 4061372443) 26 mg/dL 7-23 H GLUCOSE (test code = 1690507407) 190 mg/dL 70-110 H CREATININE (test code = 2.56 mg/dL 0.60-1.25 H 6548794282) TOTAL BILI (test code = 0.9 mg/dL 0.1-1.1 1855687425) CALCIUM (test code = 8635514330) 9.6 mg/dL 8.6-10.6 T PROTEIN (test code = 6911613058) 6.4 g/dL 6.3-8.2 ALBUMIN (test code = 5048373461) 3.5 g/dL 3.5-5.0 ALK PHOS (test code = 7993276257) 307 U/L 34-122 H ALTv (test code = 1742-6) 27 U/L 5-50 AST(SGOT) (test code = 6236851726) 28 U/L 13-40 eGFR (test code = 6643985380) 24.5 mL/min/1.73m2 MALIK (test code = MALIK) [...] tests). Lab Interpretation (test code = Abnormal 33914-9) [facility] Test Item Value Reference Range Interpretation Comments LIPASE (test code = 9663494178) 212 U/L 0-220 Lab Interpretation (test code = Normal 41083-0) [facility] [id number] 15:12:12 Test Item Value Reference Range Interpretation [...] RDW-SD (test code = 45.4 fL 38.5-51.6 58754-7) RDW-CV (test code = 14.3 % 12.1-15.4 788-0) PLT (test code = 191 See_Comment [Automated 777-3) message] The sy stem which generated this result transmitted reference range : 150 - 328 10*3/ ?L. The reference r samantha was not used to interpret this result as normal/abnormal . MPV (test code = 10.1 fL 9.8-13.0 45510-2) NRBC/100 WBC (test 0.0 See_Comment [Automat ed code = 9463354888) message] The system which generated this result transmitted reference range : 0.0 - 10.0 /100 WBCs. The refer ence range was not u sed to interpret th is result as normal/abnormal . NRBC x10^3 (test code See_Comment [Auto mated = 7521130656) message] The s ystem which generated this result transmitted reference range : 10*3/?L. The reference range was not used to interpret this result as normal/abnormal . GRAN MAT (NEUT) % 62.8 % (test code = 770-8) IMM GRAN % (test code 0.60 % = 2266066336) LYMPH % (test code = 23.2 % 736-9) MONO % (test code = 10.9 % 5905-5) EOS % (test code = 2.3 % 713-8) BASO % (test code = 0.2 % 706-2) GRAN MAT x10^3(ANC) 2.98 10*3/uL 1.99-6.95 (test code = 1094598392) IMM GRAN x10^3 (test 0.03 10*3/uL 0.00-0.06 code = 9591163454) LYMPH x10^3 (test code 1.10 10*3/uL 1.09-3.23 = 731-0) MONO x10^3 (test code 0.52 10*3/uL 0.36-1.02 = 742-7) EOS x10^3 (test code = 0.11 10*3/uL 0.06-0.53 711-2) BASO x10^3 (test code 0.01-0.09 = 704-7) Lab Interpretation Abnormal (test code = 32812-1) [facility] GLUCOSE (AUTOMATED)2022-10-15 16:18:07 Test Item Value Reference Range Interpretation Comments POCT GLU (test code = 0034866543) 131 mg/dL 70-110 H Lab Interpretation (test code = Abnormal 11146-6) [facility] GLUCOSE (AUTOMATED)2022-10-15 12:27:02 Test Item Value Reference Range Interpretation Comments POCT GLU (test code = 9824642433) 220 mg/dL 70-110 H Lab Interpretation (test code = Abnormal 03284-0) [facility] RBC (in units), 2 Units 2022-10-15 05:15:09 Test Item Value Reference Range Interpretation Comments Cross Match Result Compatible (test code = 4409) ISBT Blood Type Code 6200 (test code = 601665) Unit Blood Type (test A Pos code = 4410) Unit Number (test [id number] code = 4411) Blood Expiration Date & Time (test code = 189055) Status Information Released (test code = 4412) Product Red Blood Cells Identification (test code = 4413) Product Code (test [id number] Performed at [facility] code = 4414) Laboratory Services - [facility] [address] [place] [id number] Free: [phone] A No. [id number] [facility] GLUCOSE (AUTOMATED)2022-10-15 01:55:15 Test Item Value Reference Range Interpretation Comments POCT GLU (test code = 9410701635) 152 mg/dL 70-110 H Lab Interpretation (test code = Abnormal 66612-2) [facility] Surface Antibody (HBsAb)2022-10-15 00:05:17 Test Item Value Reference Range Interpretation Comments HBsAB (test code = Negative 5174430268) HBsAb 3.80 mIU/mL Semi-Quantitative (test code = 4615831120) MALIK (test code = Interpretation: MALIK) ?Hepatitis B Surface Antibody ? Negative - Patient is considered to be not immune to infection with HBV. ? ? Positive - Anti-HBs detected at greater than or equal to 12 mIU/mL. ?Patient is considered to be immune to infection with HBV. ? [facility] B Surface Antigen (HBsAg)2022-10-14 23:47:58 Test Item Value Reference Range Interpretation Comments HBsAg Semi-Quantitative (test code = 0.09 Negative 5195-3) [facility] GLUCOSE (AUTOMATED)2022-10-14 21:41:48 Test Item Value Reference Range Interpretation Comments POCT GLU (test code = 6425181241) 118 mg/dL 70-110 H Lab Interpretation (test code = Abnormal 05079-3) [facility] GLUCOSE (AUTOMATED)2022-10-14 16:47:29 Test Item Value Reference Range Interpretation Comments POCT GLU (test code = 3836034423) 132 mg/dL 70-110 H Lab Interpretation (test code = Abnormal 44041-1) [facility] CULTURE [id number] 14:16:04 Test Item Value Reference Range Interpretation Comments Blood Culture-Aerobic Culture positive. No growth AA P revious (test code = 10344-2) See Blood Culture p reliminary Workup for verified result additional was Culture In information. Progress on 10/10/2022 at 19 01 CDTPrevious preliminary verified result was No growth a t 24 hours on 10/11/2022 at 16 01 CDT Blood No organisms No growth Previous Culture-Anaerobic isolated preliminar y (test code = 56975-0) verifi ed result was Culture In Progress on 10/10/2022 at 19 01 CDTPrevious preliminary verified result was No growth a t 24 hours on 10/11/2022 at 16 01 CDTPrevious preliminary verified result was Culture In Progress on 10/12/2022 at 11 51 CDT Lab Interpretation Abnormal (test code = 06765-5) [facility] CULTURE [id number] 14:16:04 Test Item Value Reference Range Interpretation Comments Blood Culture-Aerobic Culture positive. No growth AA P revious (test code = 25717-0) See Blood Culture p reliminary Workup for verified result additional was Culture In information. Progress on 10/10/2022 at 19 01 CDTPrevious preliminary verified result was No growth a t 24 hours on 10/11/2022 at 16 01 CDT Blood No organisms No growth Previous Culture-Anaerobic isolated preliminar y (test code = 15136-5) verifi ed result was Culture In Progress on 10/10/2022 at 19 01 CDTPrevious preliminary verified result was No growth a t 24 hours on 10/11/2022 at 16 01 CDT Lab Interpretation Abnormal (test code = 71395-0) [facility] GLUCOSE (AUTOMATED)2022-10-14 12:54:35 Test Item Value Reference Range Interpretation Comments POCT GLU (test code = 1155792917) 221 mg/dL 70-110 H Lab Interpretation (test code = Abnormal 53700-6) [facility] GLUCOSE (AUTOMATED)2022-10-14 03:16:56 Test Item Value Reference Range Interpretation Comments POCT GLU (test code = 5731435146) 129 mg/dL 70-110 H Lab Interpretation (test code = Abnormal 71994-5) [facility] GLUCOSE (AUTOMATED)2022-10-13 21:44:17 Test Item Value Reference Range Interpretation Comments POCT GLU (test code = 6424297307) 95 mg/dL 70-110 Lab Interpretation (test code = Normal 20746-8) [facility] GLUCOSE (AUTOMATED)2022-10-13 16:27:34 Test Item Value Reference Range Interpretation Comments POCT GLU (test code = 4144789622) 167 mg/dL 70-110 H Lab Interpretation (test code = Abnormal 79769-6) [facility] GLUCOSE (AUTOMATED)2022-10-13 12:36:25 Test Item Value Reference Range Interpretation Comments POCT GLU (test code = 7272963342) 169 mg/dL 70-110 H Lab Interpretation (test code = Abnormal 20090-6) [facility] GLUCOSE (AUTOMATED)2022-10-13 01:25:21 Test Item Value Reference Range Interpretation Comments POCT GLU (test code = 6581272263) 142 mg/dL 70-110 H Lab Interpretation (test code = Abnormal 25953-2) [facility]IVE [facility]LO[facility] PATHOGENS DNA [id number] 21:42:17 Test Item Value Reference Range Interpretation Comments Coagulase Negative Positive Negative, See A Staphylococcus (test Comment/Narrative code = 19729-7) MALIK (test code = MALIK) Coagulase negative [...] contact the Antimicrobial Stewardship Program with questions.Pager: ?[phone] Testing included eleven identification and three resistance marker targets. Lab Interpretation Abnormal (test code = 07359-9) [facility] GLUCOSE (AUTOMATED)2022-10-12 21:24:15 Test Item Value Reference Range Interpretation Comments POCT GLU (test code = 8495778188) 124 mg/dL 70-110 H Lab Interpretation (test code = Abnormal 53315-3) [facility] P[facility] RBC (in units), 1 Units 2022-10-12 18:29:53 Test Item Value Reference Range Interpretation Comments Cross Match Result Compatible (test code = 4409) ISBT Blood Type Code 6200 (test code = 936098) Unit Blood Type (test A Pos code = 4410) Unit Number (test [id number] code = 4411) Blood Expiration Date & Time (test code = 707630) Status Information Issued (test code = 4412) Product Red Blood Cells Identification (test code = 4413) Product Code (test [id number] Performed at [facility] code = 4414) Laboratory Services - [facility] Blood [address] [place], [place] [id number] Free: [phone] A No. [id number] [facility] GLUCOSE (AUTOMATED)2022-10-12 16:49:16 Test Item Value Reference Range Interpretation Comments POCT GLU (test code = 1578722104) 183 mg/dL 70-110 H Lab Interpretation (test code = Abnormal 53534-7) [facility] HospitalN-[facility]MINAL [id number] 14:35:54 Test Item Value Reference Range Interpretation Comments NT-proBNP (test code = 37756 pg/mL <=450 H 3892692860) MALIK (test code = MALIK) Biotin has been reported to cause a negative bias, interpret results relative to patient's use of biotin. Lab Interpretation (test Abnormal code = 46752-1) [facility]TR[facility] [id number] 14:31:03 Test Item Value Reference Range Interpretation Comments TROPONIN I (test code = 0.296 ng/mL <=0.034 H 4183305832) MALIK (test code = MALIK) Reference (Normal) [...] biotin. Lab Interpretation Abnormal (test code = 68403-0) [facility] HospitalLIPID PANEL (75436)(TOTAL CHOLESTEROL, TRIGLYCERIDES, HDL)2022-10-12 14:05:04 Test Item Value Reference Range Interpretation Comments CHOL (test code = 0289397127) 61 mg/dL 120-200 L HDL (test code = 4942062664) 19 mg/dL >=40 L HDLC RATIO (test code = 2204120154) 3.2 <=5.0 TRIG (test code = 5694546222) 82 mg/dL 30-170 LDL CHOL (test code = 03501-2) 26 mg/dL <=160 VLDL (test code = 9209473324) 16 mg/dL 5-60 Lab Interpretation (test code = Abnormal 21356-8) [facility]2022-10-12 12:46:09 Test Item Value Reference Range Interpretation Comments POCT GLU (test code = 0164891699) 139 mg/dL 70-110 H Lab Interpretation (test code = Abnormal 64452-8) [facility] HospitalBASIC MET[facility]OLIC PANEL (NA, K, CL, CO2, GLUCOSE, BUN, CREATININE, CA)2022-10-12 11:04:31 Test Item Value Reference Range Interpretation Comments NA (test code = 136 mmol/L 135-145 0530190060) K (test code = 4.9 mmol/L 3.5-5.0 0297124179) CL (test code = 99 mmol/L 98-108 2652711870) CO2 TOTAL (test code = 27 mmol/L 23-31 0052708644) AGAP (test code = 10 2-16 7722209090) BUN (test code = 54 mg/dL 7-23 H 7931646394) GLUCOSE (test code = 136 mg/dL 70-110 H 6558870557) CREATININE (test code = 4.66 mg/dL 0.60-1.25 H 9831742999) CALCIUM (test code = 9.0 mg/dL 8.6-10.6 2915795172) eGFR (test code = 12.3 mL/min/1.73m2 0980021615) MALIK (test code = MALIK) Association of [...] tests). Lab Interpretation Abnormal (test code = 06649-9) [facility]2023-[facility]-15 11:04:31 Test Item Value Reference Range Interpretation Comments MAGNESIUM (test code = 4089900714) 1.9 mg/dL 1.7-2.4 Lab Interpretation (test code = Normal 98796-3) [facility] 11:04:11 Test Item Value Reference Range Interpretation Comments PHOSPHORUS (test code = 0619881845) 3.8 mg/dL 2.5-5.0 Lab Interpretation (test code = Normal 38885-6) [facility] WITH [id number] 10:44:53 Test Item Value Reference Range Interpretation [...] RDW-SD (test code = 46.5 fL 38.5-51.6 78941-6) RDW-CV (test code = 14.5 % 12.1-15.4 788-0) PLT (test code = 129 See_Comment L [Automated 777-3) message] The sy stem which generated this result transmitted reference range : 150 - 328 10*3/ ?L. The reference r samantha was not used to interpret this result as normal/abnormal . MPV (test code = 9.7 fL 9.8-13.0 L 69793-7) NRBC/100 WBC (test 0.0 See_Comment [Automat ed code = 6302432306) message] The system which generated this result transmitted reference range : 0.0 - 10.0 /100 WBCs. The refer ence range was not u sed to interpret th is result as normal/abnormal . NRBC x10^3 (test code See_Comment [Auto mated = 6050670535) message] The s ystem which generated this result transmitted reference range : 10*3/?L. The reference range was not used to interpret this result as normal/abnormal . GRAN MAT (NEUT) % 70.2 % (test code = 770-8) IMM GRAN % (test code 0.40 % = 3022120402) LYMPH % (test code = 19.3 % 736-9) MONO % (test code = 7.4 % 5905-5) EOS % (test code = 2.3 % 713-8) BASO % (test code = 0.4 % 706-2) GRAN MAT x10^3(ANC) 3.61 10*3/uL 1.99-6.95 (test code = 8762698437) IMM GRAN x10^3 (test 0.00-0.06 code = 6884449707) LYMPH x10^3 (test code 0.99 10*3/uL 1.09-3.23 L = 731-0) MONO x10^3 (test code 0.38 10*3/uL 0.36-1.02 = 742-7) EOS x10^3 (test code = 0.12 10*3/uL 0.06-0.53 711-2) BASO x10^3 (test code 0.01-0.09 = 704-7) Lab Interpretation Abnormal (test code = 33286-3) [facility] GLUCOSE (AUTOMATED)2022-10-12 06:45:05 Test Item Value Reference Range Interpretation Comments POCT GLU (test code = 9176557461) 189 mg/dL 70-110 H Lab Interpretation (test code = Abnormal 17946-9) [facility] GLUCOSE (AUTOMATED)2022-10-12 01:24:37 Test Item Value Reference Range Interpretation Comments POCT GLU (test code = 9163443476) 145 mg/dL 70-110 H Lab Interpretation (test code = Abnormal 89208-2) [facility] GLUCOSE (AUTOMATED)2022-10-11 21:34:09 Test Item Value Reference Range Interpretation Comments POCT GLU (test code = 1384603202) 140 mg/dL 70-110 H Lab Interpretation (test code = Abnormal 07723-3) [facility] GLUCOSE (AUTOMATED)2022-10-11 17:09:13 Test Item Value Reference Range Interpretation Comments POCT GLU (test code = 3888679419) 174 mg/dL 70-110 H Lab Interpretation (test code = Abnormal 04214-8) [facility] GLUCOSE (AUTOMATED)2022-10-11 16:19:41 Test Item Value Reference Range Interpretation Comments POCT GLU (test code = 7415361292) 170 mg/dL 70-110 H Lab Interpretation (test code = Abnormal 38669-2) [facility] GLUCOSE (AUTOMATED)2022-10-11 14:32:59 Test Item Value Reference Range Interpretation Comments POCT GLU (test code = 0865000753) 151 mg/dL 70-110 H Lab Interpretation (test code = Abnormal 03143-6) [facility] GLUCOSE (AUTOMATED)2022-10-11 13:15:13 Test Item Value Reference Range Interpretation Comments POCT GLU (test code = 6304290209) 108 mg/dL 70-110 Lab Interpretation (test code = Normal 18519-4) [facility] GLUCOSE (AUTOMATED)2022-10-11 12:14:37 Test Item Value Reference Range Interpretation Comments POCT GLU (test code = 2689946939) 106 mg/dL 70-110 Lab Interpretation (test code = Normal 74895-0) [facility] GLUCOSE (AUTOMATED)2022-10-11 11:28:53 Test Item Value Reference Range Interpretation Comments POCT GLU (test code = 6214438240) 121 mg/dL 70-110 H Lab Interpretation (test code = Abnormal 75169-9) [facility] GLUCOSE (AUTOMATED)2022-10-11 09:43:44 Test Item Value Reference Range Interpretation Comments POCT GLU (test code = 9575970098) 129 mg/dL 70-110 H Lab Interpretation (test code = Abnormal 50420-4) [facility] GLUCOSE (AUTOMATED)2022-10-11 08:46:38 Test Item Value Reference Range Interpretation Comments POCT GLU (test code = 3593475918) 101 mg/dL 70-110 Lab Interpretation (test code = Normal 63830-4) [facility] GLUCOSE (AUTOMATED)2022-10-11 07:38:35 Test Item Value Reference Range Interpretation Comments POCT GLU (test code = 4058820118) 102 mg/dL 70-110 Lab Interpretation (test code = Normal 86900-0) [facility] GLUCOSE (AUTOMATED)2022-10-11 06:20:36 Test Item Value Reference Range Interpretation Comments POCT GLU (test code = 2016476394) 112 mg/dL 70-110 H Lab Interpretation (test code = Abnormal 98101-1) [facility] GLUCOSE (AUTOMATED)2022-10-11 05:53:46 Test Item Value Reference Range Interpretation Comments POCT GLU (test code = 2545136989) 118 mg/dL 70-110 H Lab Interpretation (test code = Abnormal 00552-9) [facility] GLUCOSE (AUTOMATED)2022-10-11 04:25:32 Test Item Value Reference Range Interpretation Comments POCT GLU (test code = 7130099288) 127 mg/dL 70-110 H Lab Interpretation (test code = Abnormal 59629-6) [facility] GLUCOSE (AUTOMATED)2022-10-11 03:35:04 Test Item Value Reference Range Interpretation Comments POCT GLU (test code = 8228500872) 132 mg/dL 70-110 H Lab Interpretation (test code = Abnormal 63703-4) [facility] GLUCOSE (AUTOMATED)2022-10-11 02:10:18 Test Item Value Reference Range Interpretation Comments POCT GLU (test code = 2961341903) 155 mg/dL 70-110 H Lab Interpretation (test code = Abnormal 30015-4) [facility] HospitalGLYCOSYLATED HEMOGLOBIN (A1C)2022-10-11 01:39:22 Test Item Value Reference Range Interpretation Comments HGB A1C (test code = 7.2 % 4.0-5.7 H 4548-4) MALIK (test code = MALIK) Reference RangesNormal: <5.7%Prediabetes: 5.7 - 6.4%Diabetes: > 6.5% Lab Interpretation (test Abnormal code = 66346-4) [facility] GLUCOSE (AUTOMATED)2022-10-11 01:10:41 Test Item Value Reference Range Interpretation Comments POCT GLU (test code = 5078878419) 156 mg/dL 70-110 H Lab Interpretation (test code = Abnormal 07664-7) [facility] GLUCOSE (AUTOMATED)2022-10-10 23:31:02 Test Item Value Reference Range Interpretation Comments POCT GLU (test code = 0272801004) 144 mg/dL 70-110 H Lab Interpretation (test code = Abnormal 62845-4) [facility] GLUCOSE (AUTOMATED)2022-10-10 21:44:27 Test Item Value Reference Range Interpretation Comments POCT GLU (test code = 5749479792) 138 mg/dL 70-110 H Lab Interpretation (test code = Abnormal 89961-9) [facility] GLUCOSE (AUTOMATED)2022-10-10 21:27:07 Test Item Value Reference Range Interpretation Comments POCT GLU (test code = 6687521761) 150 mg/dL 70-110 H Lab Interpretation (test code = Abnormal 07346-4) [facility] 21 + LACTIC [id number] 21:01:36 Test Item Value Reference Range Interpretation Comments PH (test code = 7.31 7.32-7.42 L 1292214745) PCO2 LORENA (test code = 55 See_Comment H [Auto mated 6757729019) message] The sy stem which generated this result transmitted reference range : 41 - 51 mmHg. The reference range was not used to interpret this result as normal/abnormal . PO2 LORENA (test code = 16 See_Comment L [Autom ated 3635281923) message] The sy stem which generated this result transmitted reference range : 25 - 40 mmHg. The reference range was not used to interpret this result as normal/abnormal . HCO3 LORENA (test code = 27 See_Comment [Auto mated 2248145924) message] The sy stem which generated this result transmitted reference range : 24 - 28 mEq/L. The reference range was not used to interpret this result as normal/abnormal . AC VBE(BEAKER) (test 0.6 mEq/L code = 3997623074) THB LORENA (test code = 8.2 g/dL 13.5-18.0 LL 3331955693) %O2HB LORENA (test code = 22.2 % 52.0-63.0 L 7970504846) %COHB LORENA (test code = 0.1 % 0.0-1.5 3263058451) %METHB LORENA (test code = 1.5 % 0.4-1.5 4594570743) VOL%O2 LORENA (test code = 2.6 % 6.0-12.0 L 7196408666) NA (test code = 132 mmol/L 135-145 L 5944596415) K+ (test code = 4.7 mmol/L 3.5-5.0 9468316120) AC CA IONZ (test code = 5.10 mg/dL 4.50-5.30 1477274371) GLUCOSE (test code = 153 mg/dL 70-110 H [id number]) LACTIC ACID (test code 1.54 mmol/L 0.50-2.20 = 5497067343) Lab Interpretation Abnormal (test code = 46402-9) [facility] 20:33:33 Test Item Value Reference Range Interpretation Comments POCT GLU (test code = 0050675066) 137 mg/dL 70-110 H Lab Interpretation (test code = Abnormal 83329-9) [facility] [id number] 20:24:02 Test Item Value Reference Range Interpretation Comments NT-proBNP (test code = 03480 pg/mL <=450 H 7830287563) MALIK (test code = MALIK) Biotin has been reported to cause a negative bias, interpret results relative to patient's use of biotin. Lab Interpretation (test Abnormal code = 33159-3) [facility] (50667)2022-10-10 20:18:35 Test Item Value Reference Range Interpretation Comments NA (test code = 136 mmol/L 135-145 9813828890) K (test code = 4.8 mmol/L 3.5-5.0 9756696253) CL (test code = 94 mmol/L 98-108 L 0991233135) CO2 TOTAL (test code = 33 mmol/L 23-31 H 2906519500) AGAP (test code = 9 2-16 5505763765) BUN (test code = 34 mg/dL 7-23 H 0759357848) GLUCOSE (test code = 62 mg/dL 70-110 L 1451075001) CREATININE (test code = 3.14 mg/dL 0.60-1.25 H 0571736814) TOTAL BILI (test code = 0.9 mg/dL 0.1-1.0 6614206084) CALCIUM (test code = 9.4 mg/dL 8.6-10.6 9548296760) T PROTEIN (test code = 6.6 g/dL 6.3-8.2 0341830410) ALBUMIN (test code = 3.6 g/dL 3.5-5.0 6406833457) ALK PHOS (test code = 334 U/L 34-122 H 0398944714) ALTv (test code = 38 U/L 5-50 1742-6) AST(SGOT) (test code = 38 U/L 13-40 8428706604) eGFR (test code = 19.3 mL/min/1.73m2 1979717122) MALIK (test code = MALIK) Association of [...] tests). Lab Interpretation Abnormal (test code = 57817-2) [facility] 19:48:15 Test Item Value Reference Range Interpretation Comments POCT GLU (test code = 3477980221) 50 mg/dL 70-110 LL Lab Interpretation (test code = Abnormal 77153-8) [facility] [id number] 19:44:14 Test Item Value Reference Range Interpretation Comments TROPONIN I (test code = 0.060 ng/mL <=0.034 H 8966660350) MALIK (test code = MALIK) Reference (Normal) [...] biotin. Lab Interpretation Abnormal (test code = 39750-1) [facility] WITH [id number] 19:23:50 Test Item Value Reference Range Interpretation Comments WBC (test code = 7.51 See_Comment [Automated 9990-2) message] The sy stem which generated this result transmitted reference range : 4.20 - 10.70 10*3/?L. The reference range was not used to interpret this result as normal/abnormal . RBC (test code = 2.71 See_Comment L [Automated 615-8) message] The sy stem which generated this [...] RDW-SD (test code = 46.5 fL 38.5-51.6 36759-3) RDW-CV (test code = 14.4 % 12.1-15.4 788-0) PLT (test code = 131 See_Comment L [Automated 777-3) message] The sy stem which generated this result transmitted reference range : 150 - 328 10*3/ ?L. The reference r samantha was not used to interpret this result as normal/abnormal . MPV (test code = 9.2 fL 9.8-13.0 L 80400-2) NRBC/100 WBC (test 0.0 See_Comment [Automat ed code = 0019622097) message] The system which generated this result transmitted reference range : 0.0 - 10.0 /100 WBCs. The refer ence range was not u sed to interpret th is result as normal/abnormal . NRBC x10^3 (test code See_Comment [Auto mated = 0424277948) message] The s ystem which generated this result transmitted reference range : 10*3/?L. The reference range was not used to interpret this result as normal/abnormal . GRAN MAT (NEUT) % 80.2 % (test code = 770-8) IMM GRAN % (test code 0.50 % = 2406818866) LYMPH % (test code = 9.6 % 736-9) MONO % (test code = 8.8 % 5905-5) EOS % (test code = 0.4 % 713-8) BASO % (test code = 0.5 % 706-2) GRAN MAT x10^3(ANC) 6.02 10*3/uL 1.99-6.95 (test code = 6483136090) IMM GRAN x10^3 (test 0.04 10*3/uL 0.00-0.06 code = 0839944328) LYMPH x10^3 (test code 0.72 10*3/uL 1.09-3.23 L = 731-0) MONO x10^3 (test code 0.66 10*3/uL 0.36-1.02 = 742-7) EOS x10^3 (test code = 0.03 10*3/uL 0.06-0.53 L 711-2) BASO x10^3 (test code 0.04 10*3/uL 0.01-0.09 = 704-7) Lab Interpretation Abnormal (test code = 89786-7) [facility] 18:59:49 Test Item Value Reference Range Interpretation Comments POCT GLU (test code = 1449138202) 80 mg/dL 70-110 Lab Interpretation (test code = Normal 21780-0) [facility] [id number] 18:35:00 Test Item Value Reference Range Interpretation Comments Antibody Scrn (test Negative (01/02/22 1:35 code = Antibody Scrn) PM) [facility] [id number] 18:35:00 Test Item Value Reference Range Interpretation Comments ABO/Rh (test code = ABO/Rh) AB POS [facility] [id number] 18:35:00 Test Item Value Reference Range Interpretation Comments Antibody Scrn (test Negative (01/02/22 1:35 code = Antibody Scrn) PM) [facility] [id number] 18:35:00 Test Item Value Reference Range Interpretation Comments ABO/Rh (test code = ABO/Rh) AB POS [facility] [id number] 18:35:00 Test Item Value Reference Range Interpretation Comments Antibody Scrn (test Negative (01/02/22 1:35 code = Antibody Scrn) PM) [facility] [employer] [id number] 18:35:00 Test Item Value Reference Range Interpretation Comments ABO/Rh (test code = ABO/Rh) AB POS [facility] [employer] [id number] 18:35:00 Test Item Value Reference Range Interpretation Comments Antibody Scrn (test Negative (01/02/22 1:35 code = Antibody Scrn) PM) [facility] [employer] [id number] 18:35:00 Test Item Value Reference Range Interpretation Comments ABO/Rh (test code = ABO/Rh) AB POS [facility] [employer] [id number] 18:35:00 Test Item Value Reference Range Interpretation Comments Antibody Scrn (test Negative (8/5/22 1:35 code = Antibody Scrn) PM) [facility] [employer] [id number] 18:35:00 Test Item Value Reference Range Interpretation Comments ABO/Rh (test code = ABO/Rh) AB POS [facility] [employer] [id number] 18:35:00 Test Item Value Reference Range Interpretation Comments Antibody Scrn (test Negative (01/02/22 1:35 code = Antibody Scrn) PM) [employer] [id number] 18:35:00 Test Item Value Reference Range Interpretation Comments ABO/Rh (test code = ABO/Rh) AB POS [employer] [id number] 18:35:00 Test Item Value Reference Range Interpretation Comments Antibody Scrn (test Negative (01/02/22 1:35 code = Antibody Scrn) PM) [employer] [id number] 18:35:00 Test Item Value Reference Range Interpretation Comments ABO/Rh (test code = ABO/Rh) AB POS [employer] [id number] 18:35:00 Test Item Value Reference Range Interpretation Comments Antibody Scrn (test Negative (01/02/22 1:35 code = Antibody Scrn) PM) [employer] [id number] 18:35:00 Test Item Value Reference Range Interpretation Comments ABO/Rh (test code = ABO/Rh) AB POS [employer] [id number] 18:35:00 Test Item Value Reference Range Interpretation Comments Antibody Scrn (test Negative (01/02/22 1:35 code = Antibody Scrn) PM) [employer] [id number] 18:35:00 Test Item Value Reference Range Interpretation Comments ABO/Rh (test code = ABO/Rh) AB POS [employer] [id number] 18:13:00 Test Item Value Reference Range Interpretation Comments HS Troponin I (test code = HS Troponin 156 I) [employer] [id number] 18:13:00 Test Item Value Reference Range Interpretation Comments Glucose Lvl (test code = Glucose Lvl) 237 70-99 [facility] [employer] [id number] 18:13:00 Test Item Value Reference Range Interpretation Comments BUN (test code = BUN) 46 7-22 [facility]2022-08-05 18:13:00 Test Item Value Reference Range Interpretation Comments Creatinine Lvl (test code = Creatinine 5.92 0.50-1.40 Lvl) [facility]2022-08-05 18:13:00 Test Item Value Reference Range Interpretation Comments Sodium Lvl (test code = Sodium Lvl) 134 135-145 [facility] [id number] 18:13:00 Test Item Value Reference Range Interpretation Comments Potassium Lvl (test code = Potassium 4.4 3.5-5.1 Lvl) [facility] HospitalSoftware [facility] CorporationUNC [facility]ALTH [facility] [id number] 18:13:00 Test Item Value Reference Range Interpretation Comments Chloride Lvl (test code = Chloride Lvl) 98 95-109 [facility] [id number] 18:13:00 Test Item Value Reference Range Interpretation Comments HS Troponin I (test code = HS Troponin 156 I) [facility]2022-08-05 18:13:00 Test Item Value Reference Range Interpretation Comments Glucose Lvl (test code = Glucose Lvl) 237 70-99 [facility] [id number] 18:13:00 Test Item Value Reference Range Interpretation Comments BUN (test code = BUN) 46 7-22 [facility] [id number] 18:13:00 Test Item Value Reference Range Interpretation Comments Creatinine Lvl (test code = Creatinine 5.92 0.50-1.40 Lvl) [facility] [id number] 18:13:00 Test Item Value Reference Range Interpretation Comments Sodium Lvl (test code = Sodium Lvl) 134 135-145 [facility] [id number] 18:13:00 Test Item Value Reference Range Interpretation Comments Potassium Lvl (test code = Potassium 4.4 3.5-5.1 Lvl) [facility] [employer] [id number] 18:13:00 Test Item Value Reference Range Interpretation Comments Chloride Lvl (test code = Chloride Lvl) 98 95-109 [facility]oSolo[facility]les[facility] [employer] [id number] 18:13:00 Test Item Value Reference Range Interpretation Comments CO2 (test code = CO2) 29 24-32 [facility] [id number] 18:13:00 Test Item Value Reference Range Interpretation Comments Calcium Lvl (test code = Calcium Lvl) 9.2 8.5-10.5 [facility] [id number] 18:13:00 Test Item Value Reference Range Interpretation Comments Total Protein (test code = Total 6.6 6.4-8.4 Protein) [facility] [id number] 18:13:00 Test Item Value Reference Range Interpretation Comments CO2 (test code = CO2) 29 24-32 [facility] [id number] 18:13:00 Test Item Value Reference Range Interpretation Comments Albumin Lvl (test code = Albumin Lvl) 3.1 3.5-5.0 [facility] [id number] 18:13:00 Test Item Value Reference Range Interpretation Comments ALT (test code = ALT) 36 See_Comment [Auto mated message] The system which ge nerated this result transmit swathi reference range : <=65. The reference range was not used to interpr et this result as deny l/abnormal. [facility] [id number] 18:13:00 Test Item Value Reference Range Interpretation Comments AST (test code = AST) 28 See_Comment [Auto mated message] The system which ge nerated this result transmit swathi reference range : <=37. The reference range was not used to interpr et this result as deny l/abnormal. [facility] [employer] [id number] 18:13:00 Test Item Value Reference Range Interpretation Comments Alk Phos (test code = Alk Phos) 231 39-136 [facility] [employer] [id number] 18:13:00 Test Item Value Reference Range Interpretation Comments Bili Total (test code = Bili Total) 1.0 0.2-1.3 [facility] [id number] 18:13:00 Test Item Value Reference Range Interpretation Comments AGAP (test code = AGAP) 11.4 10.0-20.0 [facility] [employer] [id number] 18:13:00 Test Item Value Reference Range Interpretation Comments B/C Ratio (test code = B/C Ratio) 8 1 6-25 [facility] [id number] 18:13:00 Test Item Value Reference Range Interpretation Comments Globulin (test code = Globulin) 3.5 2.7-4.2 [place] 662952-08-05 18:13:00 Test Item Value Reference Range Interpretation Comments A/G Ratio (test code = A/G Ratio) 0.9 1 0.7-1.6 [place] 662952-08-05 18:13:00 Test Item Value Reference Range Interpretation Comments eGFR (test code = eGFR) 9 [place] 662952-08-05 18:13:00 Test Item Value Reference Range Interpretation Comments Calcium Lvl (test code = Calcium Lvl) 9.2 8.5-10.5 [place] [address]-08-05 18:13:00 Test Item Value Reference Range Interpretation Comments WBC (test code = WBC) 4.8 3.7-10.4 [place] 475022-08-05 18:13:00 Test Item Value Reference Range Interpretation Comments RBC (test code = RBC) 1.93 4.70-6.10 [place] 475022-08-05 18:13:00 Test Item Value Reference Range Interpretation Comments Hgb (test code = Hgb) 7.2 14.0-18.0 [place] [address]-08-05 18:13:00 Test Item Value Reference Range Interpretation Comments Hct (test code = Hct) 21.2 42.0-54.0 [place] 475022-08-05 18:13:00 Test Item Value Reference Range Interpretation Comments MCV (test code = MCV) 110.1 80.0-94.0 [place] 475022-08-05 18:13:00 Test Item Value Reference Range Interpretation Comments MCH (test code = MCH) 37.1 pg 27.0-31.0 [place] [address]-08-05 18:13:00 Test Item Value Reference Range Interpretation Comments MCHC (test code = MCHC) 33.7 32.0-36.0 [place] [address]-08-05 18:13:00 Test Item Value Reference Range Interpretation Comments RDW (test code = RDW) 25.8 11.5-14.5 [place] [address]-08-05 18:13:00 Test Item Value Reference Range Interpretation Comments Platelet (test code = Platelet) 216 133-450 [place] 475022-08-05 18:13:00 Test Item Value Reference Range Interpretation Comments MPV (test code = MPV) 8.2 7.4-10.4 [facility]2022-08-05 18:13:00 Test Item Value Reference Range Interpretation Comments Total Protein (test code = Total 6.6 6.4-8.4 Protein) [place] [address]-08-05 18:13:00 Test Item Value Reference Range Interpretation Comments PT (test code = PT) 16.9 s 12.0-14.7 [place] [address]-08-05 18:13:00 Test Item Value Reference Range Interpretation Comments INR (test code = INR) 1.39 1 0.85-1.17 [place] [address]-08-05 18:13:00 Test Item Value Reference Range Interpretation Comments PTT (test code = PTT) 35.0 s 22.9-35.8 [place] [address]-08-05 18:13:00 Test Item Value Reference Range Interpretation Comments Plt Morph (test code = Normal (01/02/22 1:13 PM) Plt Morph) [place] [address]-08-05 18:13:00 Test Item Value Reference Range Interpretation Comments Segs (test code = Segs) 76.4 45.0-75.0 [place] [address]-08-05 18:13:00 Test Item Value Reference Range Interpretation Comments Lymphocytes (test code = Lymphocytes) 14.6 20.0-40.0 [place] [address]-08-05 18:13:00 Test Item Value Reference Range Interpretation Comments Monocytes (test code = Monocytes) 7.5 2.0-12.0 [place] [address]-08-05 18:13:00 Test Item Value Reference Range Interpretation Comments Eosinophils (test code = 0.6 See_Comment [A utomated message] The Eosinophils) system which ge nerated this result tra nsmitted reference range : <=4.0. The reference r samantha was not used to int erpret this result as normal/abnormal . [place] [address]-08-05 18:13:00 Test Item Value Reference Range Interpretation Comments Basophils (test code = 0.9 See_Comment [Aut omated message] The Basophils) system which ge nerated this result tra nsmitted reference range : <=1.0. The reference r samantha was not used to int erpret this result as normal/abnormal . [address]08-05 18:13:00 Test Item Value Reference Range Interpretation Comments Neutrophils # (test code = Neutrophils 3.7 1.5-8.1 #) [place] [address]-08-05 18:13:00 Test Item Value Reference Range Interpretation Comments Albumin Lvl (test code = Albumin Lvl) 3.1 3.5-5.0 [address]08-05 18:13:00 Test Item Value Reference Range Interpretation Comments Lymphocytes # (test code = Lymphocytes 0.7 1.0-5.5 #) [address]08-05 18:13:00 Test Item Value Reference Range Interpretation Comments Monocytes # (test code 0.4 See_Comment [Aut omated message] The = Monocytes #) system which generated this result tra nsmitted reference range : <=0.8. The reference r samantha was not used to int erpret this result as normal/abnormal . [address]08-05 18:13:00 Test Item Value Reference Range Interpretation Comments Anisocyte (test code = 2+ *ABN*(01/02/22 1:13 Anisocyte) PM) [address]08-05 18:13:00 Test Item Value Reference Range Interpretation Comments Macrocyte (test code = 2+ *ABN*(01/02/22 1:13 Macrocyte) PM) [address]08-05 18:13:00 Test Item Value Reference Range Interpretation Comments ALT (test code = ALT) 36 See_Comment [Auto mated message] The system which ge nerated this result transmit swathi reference range : <=65. The reference range was not used to interpr et this result as deny l/abnormal. [address]08-05 18:13:00 Test Item Value Reference Range Interpretation Comments AST (test code = AST) 28 See_Comment [Auto mated message] The system which ge nerated this result transmit swathi reference range : <=37. The reference range was not used to interpr et this result as deny l/abnormal. [address]08-05 18:13:00 Test Item Value Reference Range Interpretation Comments Alk Phos (test code = Alk Phos) 231 39-136 [place] 662952-08-05 18:13:00 Test Item Value Reference Range Interpretation Comments Bili Total (test code = Bili Total) 1.0 0.2-1.3 [place] [address]-08-05 18:13:00 Test Item Value Reference Range Interpretation Comments AGAP (test code = AGAP) 11.4 10.0-20.0 [place] [address]-08-05 18:13:00 Test Item Value Reference Range Interpretation Comments B/C Ratio (test code = B/C Ratio) 8 1 6-[address]08-05 18:13:00 Test Item Value Reference Range Interpretation Comments Globulin (test code = Globulin) 3.5 2.7-4.2 [place] [address]-08-05 18:13:00 Test Item Value Reference Range Interpretation Comments A/G Ratio (test code = A/G Ratio) 0.9 1 0.7-1.6 [address]08-05 18:13:00 Test Item Value Reference Range Interpretation Comments eGFR (test code = eGFR) 9 [place] [address]-08-05 18:13:00 Test Item Value Reference Range Interpretation Comments WBC (test code = WBC) 4.8 3.7-10.4 [place] [address]-08-05 18:13:00 Test Item Value Reference Range Interpretation Comments RBC (test code = RBC) 1.93 4.70-6.10 [place] [address]-08-05 18:13:00 Test Item Value Reference Range Interpretation Comments Hgb (test code = Hgb) 7.2 14.0-18.0 [address]08-05 18:13:00 Test Item Value Reference Range Interpretation Comments Hct (test code = Hct) 21.2 42.0-54.0 [place] [address]-08-05 18:13:00 Test Item Value Reference Range Interpretation Comments MCV (test code = MCV) 110.1 80.0-94.0 [place] [address]-08-05 18:13:00 Test Item Value Reference Range Interpretation Comments MCH (test code = MCH) 37.1 pg 27.0-31.0 [place] [address]-08-05 18:13:00 Test Item Value Reference Range Interpretation Comments MCHC (test code = MCHC) 33.7 32.0-36.0 [place] [address]-08-05 18:13:00 Test Item Value Reference Range Interpretation Comments RDW (test code = RDW) 25.8 11.5-14.5 [place] 475022-08-05 18:13:00 Test Item Value Reference Range Interpretation Comments Platelet (test code = Platelet) 216 133-450 [id number] 18:13:00 Test Item Value Reference Range Interpretation Comments MPV (test code = MPV) 8.2 7.4-10.4 [place] [address]-08-05 18:13:00 Test Item Value Reference Range Interpretation Comments PT (test code = PT) 16.9 s 12.0-14.7 [place] [address]-08-05 18:13:00 Test Item Value Reference Range Interpretation Comments INR (test code = INR) 1.39 1 0.85-1.17 [place] 475022-08-05 18:13:00 Test Item Value Reference Range Interpretation Comments PTT (test code = PTT) 35.0 s 22.9-35.8 [place] [address]-08-05 18:13:00 Test Item Value Reference Range Interpretation Comments Plt Morph (test code = Normal (01/02/22 1:13 PM) Plt Morph) [place] [address]-08-05 18:13:00 Test Item Value Reference Range Interpretation Comments Segs (test code = Segs) 76.4 45.0-75.0 [place] 475022-08-05 18:13:00 Test Item Value Reference Range Interpretation Comments Lymphocytes (test code = Lymphocytes) 14.6 20.0-40.0 [place] [address]-08-05 18:13:00 Test Item Value Reference Range Interpretation Comments Monocytes (test code = Monocytes) 7.5 2.0-12.0 [place] [address]-08-05 18:13:00 Test Item Value Reference Range Interpretation Comments Eosinophils (test code = 0.6 See_Comment [A utomated message] The Eosinophils) system which ge nerated this result tra nsmitted reference range : <=4.0. The reference r samantha was not used to int erpret this result as normal/abnormal . [facility] [id number] 18:13:00 Test Item Value Reference Range Interpretation Comments Basophils (test code = 0.9 See_Comment [Aut omated message] The Basophils) system which ge nerated this result tra nsmitted reference range : <=1.0. The reference r samantha was not used to int erpret this result as normal/abnormal . [facility] [id number] 18:13:00 Test Item Value Reference Range Interpretation Comments Neutrophils # (test code = Neutrophils 3.7 1.5-8.1 #) [facility] [id number] 18:13:00 Test Item Value Reference Range Interpretation Comments Lymphocytes # (test code = Lymphocytes 0.7 1.0-5.5 #) [facility] [id number] 18:13:00 Test Item Value Reference Range Interpretation Comments Monocytes # (test code 0.4 See_Comment [Aut omated message] The = Monocytes #) system which generated this result tra nsmitted reference range : <=0.8. The reference r samantha was not used to int erpret this result as normal/abnormal . [facility] [id number] 18:13:00 Test Item Value Reference Range Interpretation Comments Anisocyte (test code = 2+ *ABN*(01/02/22 1:13 Anisocyte) PM) [facility] [id number] 18:13:00 Test Item Value Reference Range Interpretation Comments Macrocyte (test code = 2+ *ABN*(01/02/22 1:13 Macrocyte) PM) [facility] [id number] 18:13:00 Test Item Value Reference Range Interpretation Comments HS Troponin I (test code = HS Troponin 156 I) [facility]oSolo[facility] [id number] 18:13:00 Test Item Value Reference Range Interpretation Comments Glucose Lvl (test code = Glucose Lvl) 237 70-99 [facility]2022-08-05 18:13:00 Test Item Value Reference Range Interpretation Comments BUN (test code = BUN) 46 7-22 [facility]2022-08-05 18:13:00 Test Item Value Reference Range Interpretation Comments Creatinine Lvl (test code = Creatinine 5.92 0.50-1.40 Lvl) [place] [address]-08-05 18:13:00 Test Item Value Reference Range Interpretation Comments Sodium Lvl (test code = Sodium Lvl) 134 135-145 [place] 662952-08-05 18:13:00 Test Item Value Reference Range Interpretation Comments Potassium Lvl (test code = Potassium 4.4 3.5-5.1 Lvl) [place] 662952-08-05 18:13:00 Test Item Value Reference Range Interpretation Comments Chloride Lvl (test code = Chloride Lvl) 98 95-109 [place] [address]-08-05 18:13:00 Test Item Value Reference Range Interpretation Comments CO2 (test code = CO2) 29 24-32 [place] 662952-08-05 18:13:00 Test Item Value Reference Range Interpretation Comments Calcium Lvl (test code = Calcium Lvl) 9.2 8.5-10.5 [place] 662952-08-05 18:13:00 Test Item Value Reference Range Interpretation Comments Total Protein (test code = Total 6.6 6.4-8.4 Protein) [place] 662952-08-05 18:13:00 Test Item Value Reference Range Interpretation Comments Albumin Lvl (test code = Albumin Lvl) 3.1 3.5-5.0 [place] 662952-08-05 18:13:00 Test Item Value Reference Range Interpretation Comments ALT (test code = ALT) 36 See_Comment [Auto mated message] The system which ge nerated this result transmit swathi reference range : <=65. The reference range was not used to interpr et this result as deny l/abnormal. [place]52-08-05 18:13:00 Test Item Value Reference Range Interpretation Comments AST (test code = AST) 28 See_Comment [Auto mated message] The system which ge nerated this result transmit swathi reference range : <=37. The reference range was not used to interpr et this result as deny l/abnormal. [place] 662952-08-05 18:13:00 Test Item Value Reference Range Interpretation Comments Alk Phos (test code = Alk Phos) 231 39-136 [place] 662952-08-05 18:13:00 Test Item Value Reference Range Interpretation Comments Bili Total (test code = Bili Total) 1.0 0.2-1.3 [place] [address]-08-05 18:13:00 Test Item Value Reference Range Interpretation Comments AGAP (test code = AGAP) 11.4 10.0-20.0 [place] [address]-08-05 18:13:00 Test Item Value Reference Range Interpretation Comments B/C Ratio (test code = B/C Ratio) 8 1 6-[address]08-05 18:13:00 Test Item Value Reference Range Interpretation Comments Globulin (test code = Globulin) 3.5 2.7-4.2 [place] [address]-08-05 18:13:00 Test Item Value Reference Range Interpretation Comments A/G Ratio (test code = A/G Ratio) 0.9 1 0.7-1.6 [address]08-05 18:13:00 Test Item Value Reference Range Interpretation Comments eGFR (test code = eGFR) 9 [place] [address]-08-05 18:13:00 Test Item Value Reference Range Interpretation Comments WBC (test code = WBC) 4.8 3.7-10.4 [place] [address]-08-05 18:13:00 Test Item Value Reference Range Interpretation Comments RBC (test code = RBC) 1.93 4.70-6.10 [place] [address]-08-05 18:13:00 Test Item Value Reference Range Interpretation Comments Hgb (test code = Hgb) 7.2 14.0-18.0 [place] [address]-08-05 18:13:00 Test Item Value Reference Range Interpretation Comments Hct (test code = Hct) 21.2 42.0-54.[address]08-05 18:13:00 Test Item Value Reference Range Interpretation Comments MCV (test code = MCV) 110.1 80.0-94.0 [place] [address]-08-05 18:13:00 Test Item Value Reference Range Interpretation Comments MCH (test code = MCH) 37.1 pg 27.0-31.0 [place] [address]-08-05 18:13:00 Test Item Value Reference Range Interpretation Comments MCHC (test code = MCHC) 33.7 32.0-36.0 [place] [address]-08-05 18:13:00 Test Item Value Reference Range Interpretation Comments RDW (test code = RDW) 25.8 11.5-14.5 [place] [address]-08-05 18:13:00 Test Item Value Reference Range Interpretation Comments Platelet (test code = Platelet) 216 133-450 [id number] 18:13:00 Test Item Value Reference Range Interpretation Comments MPV (test code = MPV) 8.2 7.4-10.4 [place] [address]-08-05 18:13:00 Test Item Value Reference Range Interpretation Comments PT (test code = PT) 16.9 s 12.0-14.7 [place] [address]-08-05 18:13:00 Test Item Value Reference Range Interpretation Comments INR (test code = INR) 1.39 1 0.85-1.17 [place] 475022-08-05 18:13:00 Test Item Value Reference Range Interpretation Comments PTT (test code = PTT) 35.0 s 22.9-35.8 [place] [address]-08-05 18:13:00 Test Item Value Reference Range Interpretation Comments Plt Morph (test code = Normal (01/02/22 1:13 PM) Plt Morph) [facility] [id number] 18:13:00 Test Item Value Reference Range Interpretation Comments Segs (test code = Segs) 76.4 45.0-75.0 [place] [address]-08-05 18:13:00 Test Item Value Reference Range Interpretation Comments Lymphocytes (test code = Lymphocytes) 14.6 20.0-40.0 [place] [address]-08-05 18:13:00 Test Item Value Reference Range Interpretation Comments Monocytes (test code = Monocytes) 7.5 2.0-12.0 [place] [address]-08-05 18:13:00 Test Item Value Reference Range Interpretation Comments Eosinophils (test code = 0.6 See_Comment [A utomated message] The Eosinophils) system which ge nerated this result tra nsmitted reference range : <=4.0. The reference r samantha was not used to int erpret this result as normal/abnormal . [id number] 18:13:00 Test Item Value Reference Range Interpretation Comments Basophils (test code = 0.9 See_Comment [Aut omated message] The Basophils) system which ge nerated this result tra nsmitted reference range : <=1.0. The reference r samantha was not used to int erpret this result as normal/abnormal . [facility] [id number] 18:13:00 Test Item Value Reference Range Interpretation Comments Neutrophils # (test code = Neutrophils 3.7 1.5-8.1 #) [facility] HospitalDptdzrgYMJNNXFZHX8916-16-42 18:13:00 Test Item Value Reference Range Interpretation Comments Lymphocytes # (test code = Lymphocytes 0.7 1.0-5.5 #) [facility] [id number] 18:13:00 Test Item Value Reference Range Interpretation Comments Monocytes # (test code 0.4 See_Comment [Aut omated message] The = Monocytes #) system which generated this result tra nsmitted reference range : <=0.8. The reference r samantha was not used to int erpret this result as normal/abnormal . [facility] HospitalSwdbdhnLFQKBFVSUZ6729-88-73 18:13:00 Test Item Value Reference Range Interpretation Comments Anisocyte (test code = 2+ *ABN*(01/02/22 1:13 Anisocyte) PM) [facility] Hospit[id number] 18:13:00 Test Item Value Reference Range Interpretation Comments Macrocyte (test code = 2+ *ABN*(01/02/22 1:13 Macrocyte) PM) [facility]ARD[facility] [id number] 18:13:00 Test Item Value Reference Range Interpretation Comments HS Troponin I (test code = HS Troponin 156 I) [facility] Paso[facility] [id number] 18:13:00 Test Item Value Reference Range Interpretation Comments Glucose Lvl (test code = Glucose Lvl) 237 70-99 [facility] [id number] 18:13:00 Test Item Value Reference Range Interpretation Comments BUN (test code = BUN) 46 7-22 [facility]oSolo[facility] [id number] 18:13:00 Test Item Value Reference Range Interpretation Comments Creatinine Lvl (test code = Creatinine 5.92 0.50-1.40 Lvl) [address]08-05 18:13:00 Test Item Value Reference Range Interpretation Comments Sodium Lvl (test code = Sodium Lvl) 134 135-145 [place] 662952-08-05 18:13:00 Test Item Value Reference Range Interpretation Comments Potassium Lvl (test code = Potassium 4.4 3.5-5.1 Lvl) [place] [address]-08-05 18:13:00 Test Item Value Reference Range Interpretation Comments Chloride Lvl (test code = Chloride Lvl) 98 95-109 [address]08-05 18:13:00 Test Item Value Reference Range Interpretation Comments CO2 (test code = CO2) 29 24-32 [address]08-05 18:13:00 Test Item Value Reference Range Interpretation Comments Calcium Lvl (test code = Calcium Lvl) 9.2 8.5-10.5 [place] [address]-08-05 18:13:00 Test Item Value Reference Range Interpretation Comments Total Protein (test code = Total 6.6 6.4-8.4 Protein) [address]08-05 18:13:00 Test Item Value Reference Range Interpretation Comments Albumin Lvl (test code = Albumin Lvl) 3.1 3.5-5.0 [place] [address]-08-05 18:13:00 Test Item Value Reference Range Interpretation Comments ALT (test code = ALT) 36 See_Comment [Auto mated message] The system which ge nerated this result transmit swathi reference range : <=65. The reference range was not used to interpr et this result as deny l/abnormal. [place] [address]-08-05 18:13:00 Test Item Value Reference Range Interpretation Comments AST (test code = AST) 28 See_Comment [Auto mated message] The system which ge nerated this result transmit swathi reference range : <=37. The reference range was not used to interpr et this result as deny l/abnormal. [address]08-05 18:13:00 Test Item Value Reference Range Interpretation Comments Alk Phos (test code = Alk Phos) 231 39-136 [place] [address]-08-05 18:13:00 Test Item Value Reference Range Interpretation Comments Bili Total (test code = Bili Total) 1.0 0.2-1.3 [place] [address]-08-05 18:13:00 Test Item Value Reference Range Interpretation Comments AGAP (test code = AGAP) 11.4 10.0-20.0 [place] 662952-08-05 18:13:00 Test Item Value Reference Range Interpretation Comments B/C Ratio (test code = B/C Ratio) 8 1 6-25 [place] [address]-08-05 18:13:00 Test Item Value Reference Range Interpretation Comments Globulin (test code = Globulin) 3.5 2.7-4.2 [place] [address]-08-05 18:13:00 Test Item Value Reference Range Interpretation Comments A/G Ratio (test code = A/G Ratio) 0.9 1 0.7-1.6 [place] [address]-08-05 18:13:00 Test Item Value Reference Range Interpretation Comments eGFR (test code = eGFR) 9 [place] [address]-08-05 18:13:00 Test Item Value Reference Range Interpretation Comments WBC (test code = WBC) 4.8 3.7-10.4 [place] [address]-08-05 18:13:00 Test Item Value Reference Range Interpretation Comments RBC (test code = RBC) 1.93 4.70-6.10 [place] [address]-08-05 18:13:00 Test Item Value Reference Range Interpretation Comments Hgb (test code = Hgb) 7.2 14.0-18.0 [place] [address]-08-05 18:13:00 Test Item Value Reference Range Interpretation Comments Hct (test code = Hct) 21.2 42.0-54.0 [place] [address]-08-05 18:13:00 Test Item Value Reference Range Interpretation Comments MCV (test code = MCV) 110.1 80.0-94.0 [place] [address]-08-05 18:13:00 Test Item Value Reference Range Interpretation Comments MCH (test code = MCH) 37.1 pg 27.0-31.0 [place] [address]-08-05 18:13:00 Test Item Value Reference Range Interpretation Comments MCHC (test code = MCHC) 33.7 32.0-36.0 [facility] [id number] 18:13:00 Test Item Value Reference Range Interpretation Comments RDW (test code = RDW) 25.8 11.5-14.5 [facility] [id number] 18:13:00 Test Item Value Reference Range Interpretation Comments Platelet (test code = Platelet) 216 133-450 [facility] [id number] 18:13:00 Test Item Value Reference Range Interpretation Comments MPV (test code = MPV) 8.2 7.4-10.4 [place] 475022-08-05 18:13:00 Test Item Value Reference Range Interpretation Comments PT (test code = PT) 16.9 s 12.0-14.7 [place] [address]-08-05 18:13:00 Test Item Value Reference Range Interpretation Comments INR (test code = INR) 1.39 1 0.85-1.17 [place] 475022-08-05 18:13:00 Test Item Value Reference Range Interpretation Comments PTT (test code = PTT) 35.0 s 22.9-35.8 [place] [address]-08-05 18:13:00 Test Item Value Reference Range Interpretation Comments Plt Morph (test code = Normal (01/02/22 1:13 PM) Plt Morph) [place] 475022-08-05 18:13:00 Test Item Value Reference Range Interpretation Comments Segs (test code = Segs) 76.4 45.0-75.0 [place] 475022-08-05 18:13:00 Test Item Value Reference Range Interpretation Comments Lymphocytes (test code = Lymphocytes) 14.6 20.0-40.0 [place] [address]-08-05 18:13:00 Test Item Value Reference Range Interpretation Comments Monocytes (test code = Monocytes) 7.5 2.0-12.0 [place] [address]-08-05 18:13:00 Test Item Value Reference Range Interpretation Comments Eosinophils (test code = 0.6 See_Comment [A utomated message] The Eosinophils) system which ge nerated this result tra nsmitted reference range : <=4.0. The reference r samantha was not used to int erpret this result as normal/abnormal . [facility] [id number] 18:13:00 Test Item Value Reference Range Interpretation Comments Basophils (test code = 0.9 See_Comment [Aut omated message] The Basophils) system which ge nerated this result tra nsmitted reference range : <=1.0. The reference r samantha was not used to int erpret this result as normal/abnormal . [facility] [id number] 18:13:00 Test Item Value Reference Range Interpretation Comments Neutrophils # (test code = Neutrophils 3.7 1.5-8.1 #) [facility] [id number] 18:13:00 Test Item Value Reference Range Interpretation Comments Lymphocytes # (test code = Lymphocytes 0.7 1.0-5.5 #) [facility] [id number] 18:13:00 Test Item Value Reference Range Interpretation Comments Monocytes # (test code 0.4 See_Comment [Aut omated message] The = Monocytes #) system which generated this result tra nsmitted reference range : <=0.8. The reference r samantha was not used to int erpret this result as normal/abnormal . [facility] [id number] 18:13:00 Test Item Value Reference Range Interpretation Comments Anisocyte (test code = 2+ *ABN*(01/02/22 1:13 Anisocyte) PM) [facility] [id number] 18:13:00 Test Item Value Reference Range Interpretation Comments Macrocyte (test code = 2+ *ABN*(01/02/22 1:13 Macrocyte) PM) [facility]ARD[facility] [id number] 18:13:00 Test Item Value Reference Range Interpretation Comments HS Troponin I (test code = HS Troponin 156 I) [facility] [id number] 18:13:00 Test Item Value Reference Range Interpretation Comments Glucose Lvl (test code = Glucose Lvl) 237 70-99 [facility] [id number] 18:13:00 Test Item Value Reference Range Interpretation Comments BUN (test code = BUN) 46 7-22 [facility] [id number] 18:13:00 Test Item Value Reference Range Interpretation Comments Creatinine Lvl (test code = Creatinine 5.92 0.50-1.40 Lvl) [place] [address]-08-05 18:13:00 Test Item Value Reference Range Interpretation Comments Sodium Lvl (test code = Sodium Lvl) 134 135-145 [place] 662952-08-05 18:13:00 Test Item Value Reference Range Interpretation Comments Potassium Lvl (test code = Potassium 4.4 3.5-5.1 Lvl) [address]08-05 18:13:00 Test Item Value Reference Range Interpretation Comments Chloride Lvl (test code = Chloride Lvl) 98 95-109 [address]08-05 18:13:00 Test Item Value Reference Range Interpretation Comments CO2 (test code = CO2) 29 24-32 [address]08-05 18:13:00 Test Item Value Reference Range Interpretation Comments Calcium Lvl (test code = Calcium Lvl) 9.2 8.5-10.5 [address]08-05 18:13:00 Test Item Value Reference Range Interpretation Comments Total Protein (test code = Total 6.6 6.4-8.4 Protein) [address]08-05 18:13:00 Test Item Value Reference Range Interpretation Comments Albumin Lvl (test code = Albumin Lvl) 3.1 3.5-5.0 [place] [address]-08-05 18:13:00 Test Item Value Reference Range Interpretation Comments ALT (test code = ALT) 36 See_Comment [Auto mated message] The system which ge nerated this result transmit swathi reference range : <=65. The reference range was not used to interpr et this result as deny l/abnormal. [place] [address]-08-05 18:13:00 Test Item Value Reference Range Interpretation Comments AST (test code = AST) 28 See_Comment [Auto mated message] The system which ge nerated this result transmit swathi reference range : <=37. The reference range was not used to interpr et this result as deny l/abnormal. [place] [address]-08-05 18:13:00 Test Item Value Reference Range Interpretation Comments Alk Phos (test code = Alk Phos) 231 39-136 [place] [address]-08-05 18:13:00 Test Item Value Reference Range Interpretation Comments Bili Total (test code = Bili Total) 1.0 0.2-1.3 [place] [address]-08-05 18:13:00 Test Item Value Reference Range Interpretation Comments AGAP (test code = AGAP) 11.4 10.0-20.0 [place] [address]-08-05 18:13:00 Test Item Value Reference Range Interpretation Comments B/C Ratio (test code = B/C Ratio) 8 1 6-25 [address]08-05 18:13:00 Test Item Value Reference Range Interpretation Comments Globulin (test code = Globulin) 3.5 2.7-4.2 [place] [address]-08-05 18:13:00 Test Item Value Reference Range Interpretation Comments A/G Ratio (test code = A/G Ratio) 0.9 1 0.7-1.6 [address]08-05 18:13:00 Test Item Value Reference Range Interpretation Comments eGFR (test code = eGFR) 9 [place] [address]-08-05 18:13:00 Test Item Value Reference Range Interpretation Comments WBC (test code = WBC) 4.8 3.7-10.4 [place] [address]-08-05 18:13:00 Test Item Value Reference Range Interpretation Comments RBC (test code = RBC) 1.93 4.70-6.10 [place] [address]-08-05 18:13:00 Test Item Value Reference Range Interpretation Comments Hgb (test code = Hgb) 7.2 14.0-18.0 [place] [address]-08-05 18:13:00 Test Item Value Reference Range Interpretation Comments Hct (test code = Hct) 21.2 42.0-54.0 [place] [address]-08-05 18:13:00 Test Item Value Reference Range Interpretation Comments MCV (test code = MCV) 110.1 80.0-94.0 [place] [address]-08-05 18:13:00 Test Item Value Reference Range Interpretation Comments MCH (test code = MCH) 37.1 pg 27.0-31.0 [place] [address]-08-05 18:13:00 Test Item Value Reference Range Interpretation Comments MCHC (test code = MCHC) 33.7 32.0-36.0 [place] [address]-08-05 18:13:00 Test Item Value Reference Range Interpretation Comments RDW (test code = RDW) 25.8 11.5-14.5 [place] [address]-08-05 18:13:00 Test Item Value Reference Range Interpretation Comments Platelet (test code = Platelet) 216 133-450 [place] [address]-08-05 18:13:00 Test Item Value Reference Range Interpretation Comments MPV (test code = MPV) 8.2 7.4-10.4 [place] [address]-08-05 18:13:00 Test Item Value Reference Range Interpretation Comments PT (test code = PT) 16.9 s 12.0-14.[address]08-05 18:13:00 Test Item Value Reference Range Interpretation Comments INR (test code = INR) 1.39 1 0.85-1.[address]08-05 18:13:00 Test Item Value Reference Range Interpretation Comments PTT (test code = PTT) 35.0 s 22.9-35.8 [place] [address]-08-05 18:13:00 Test Item Value Reference Range Interpretation Comments Plt Morph (test code = Normal (01/02/22 1:13 PM) Plt Morph) [address]08-05 18:13:00 Test Item Value Reference Range Interpretation Comments Segs (test code = Segs) 76.4 45.0-75.0 [place] [address]-08-05 18:13:00 Test Item Value Reference Range Interpretation Comments Lymphocytes (test code = Lymphocytes) 14.6 20.0-40.0 [place] [address]-08-05 18:13:00 Test Item Value Reference Range Interpretation Comments Monocytes (test code = Monocytes) 7.5 2.0-12.[address]08-05 18:13:00 Test Item Value Reference Range Interpretation Comments Eosinophils (test code = 0.6 See_Comment [A utomated message] The Eosinophils) system which ge nerated this result tra nsmitted reference range : <=4.0. The reference r samantha was not used to int erpret this result as normal/abnormal . [place] [address]-08-05 18:13:00 Test Item Value Reference Range Interpretation Comments Basophils (test code = 0.9 See_Comment [Aut omated message] The Basophils) system which ge nerated this result tra nsmitted reference range : <=1.0. The reference r samantha was not used to int erpret this result as normal/abnormal . [facility] [id number] 18:13:00 Test Item Value Reference Range Interpretation Comments Neutrophils # (test code = Neutrophils 3.7 1.5-8.1 #) [facility] [id number] 18:13:00 Test Item Value Reference Range Interpretation Comments Lymphocytes # (test code = Lymphocytes 0.7 1.0-5.5 #) [facility] [id number] 18:13:00 Test Item Value Reference Range Interpretation Comments Monocytes # (test code 0.4 See_Comment [Aut omated message] The = Monocytes #) system which generated this result tra nsmitted reference range : <=0.8. The reference r samantha was not used to int erpret this result as normal/abnormal . [facility] [id number] 18:13:00 Test Item Value Reference Range Interpretation Comments Anisocyte (test code = 2+ *ABN*(01/02/22 1:13 Anisocyte) PM) [facility] [id number] 18:13:00 Test Item Value Reference Range Interpretation Comments Macrocyte (test code = 2+ *ABN*(01/02/22 1:13 Macrocyte) PM) [facility]ARD[facility] [id number] 18:13:00 Test Item Value Reference Range Interpretation Comments HS Troponin I (test code = HS Troponin 156 I) [facility] PasoSoloingles[facility] [id number] 18:13:00 Test Item Value Reference Range Interpretation Comments Glucose Lvl (test code = Glucose Lvl) 237 70-99 [facility] PasoSoloingles[facility] [employer] [id number] 18:13:00 Test Item Value Reference Range Interpretation Comments BUN (test code = BUN) 46 7-22 [facility]2022-08-05 18:13:00 Test Item Value Reference Range Interpretation Comments Creatinine Lvl (test code = Creatinine 5.92 0.50-1.40 Lvl) [facility]2022-08-05 18:13:00 Test Item Value Reference Range Interpretation Comments Sodium Lvl (test code = Sodium Lvl) 134 135-145 [place] 662952-08-05 18:13:00 Test Item Value Reference Range Interpretation Comments Potassium Lvl (test code = Potassium 4.4 3.5-5.1 Lvl) [place] 662952-08-05 18:13:00 Test Item Value Reference Range Interpretation Comments Chloride Lvl (test code = Chloride Lvl) 98 95-109 [place] 662952-08-05 18:13:00 Test Item Value Reference Range Interpretation Comments CO2 (test code = CO2) 29 24-32 [place] 662952-08-05 18:13:00 Test Item Value Reference Range Interpretation Comments Calcium Lvl (test code = Calcium Lvl) 9.2 8.5-10.5 [place]2952-08-05 18:13:00 Test Item Value Reference Range Interpretation Comments Total Protein (test code = Total 6.6 6.4-8.4 Protein) [place]2952-08-05 18:13:00 Test Item Value Reference Range Interpretation Comments Albumin Lvl (test code = Albumin Lvl) 3.1 3.5-5.0 [facility] PasoSoloingles[facility] [id number] 18:13:00 Test Item Value Reference Range Interpretation Comments ALT (test code = ALT) 36 See_Comment [Auto mated message] The system which ge nerated this result transmit swathi reference range : <=65. The reference range was not used to interpr et this result as deny l/abnormal. [facility] PasoSoloingles[facility] [id number] 18:13:00 Test Item Value Reference Range Interpretation Comments AST (test code = AST) 28 See_Comment [Auto mated message] The system which ge nerated this result transmit swathi reference range : <=37. The reference range was not used to interpr et this result as deny l/abnormal. [facility] PasoSoloingles[facility] [id number] 18:13:00 Test Item Value Reference Range Interpretation Comments Alk Phos (test code = Alk Phos) 231 39-136 [facility] PasoSoloingles.[facility] [employer] [id number] 18:13:00 Test Item Value Reference Range Interpretation Comments Bili Total (test code = Bili Total) 1.0 0.2-1.3 [address]08-05 18:13:00 Test Item Value Reference Range Interpretation Comments AGAP (test code = AGAP) 11.4 10.0-20.0 [address]08-05 18:13:00 Test Item Value Reference Range Interpretation Comments B/C Ratio (test code = B/C Ratio) 8 1 6-25 [address]08-05 18:13:00 Test Item Value Reference Range Interpretation Comments Globulin (test code = Globulin) 3.5 2.7-4.[address]08-05 18:13:00 Test Item Value Reference Range Interpretation Comments A/G Ratio (test code = A/G Ratio) 0.9 1 0.7-1.6 [address]08-05 18:13:00 Test Item Value Reference Range Interpretation Comments eGFR (test code = eGFR) 9 [place] 475022-08-05 18:13:00 Test Item Value Reference Range Interpretation Comments WBC (test code = WBC) 4.8 3.7-10.[address]08-05 18:13:00 Test Item Value Reference Range Interpretation Comments RBC (test code = RBC) 1.93 4.70-6.10 [place] [address]-08-05 18:13:00 Test Item Value Reference Range Interpretation Comments Hgb (test code = Hgb) 7.2 14.0-18.0 [place] [address]-08-05 18:13:00 Test Item Value Reference Range Interpretation Comments Hct (test code = Hct) 21.2 42.0-54.[address]08-05 18:13:00 Test Item Value Reference Range Interpretation Comments MCV (test code = MCV) 110.1 80.0-94.0 [place] [address]-08-05 18:13:00 Test Item Value Reference Range Interpretation Comments MCH (test code = MCH) 37.1 pg 27.0-31.0 [place] [address]-08-05 18:13:00 Test Item Value Reference Range Interpretation Comments MCHC (test code = MCHC) 33.7 32.0-36.0 [place] [address]-08-05 18:13:00 Test Item Value Reference Range Interpretation Comments RDW (test code = RDW) 25.8 11.5-14.5 [place] [address]-08-05 18:13:00 Test Item Value Reference Range Interpretation Comments Platelet (test code = Platelet) 216 133-450 [place] 475022-08-05 18:13:00 Test Item Value Reference Range Interpretation Comments MPV (test code = MPV) 8.2 7.4-10.4 [place] [address]-08-05 18:13:00 Test Item Value Reference Range Interpretation Comments PT (test code = PT) 16.9 s 12.0-14.7 [place] [address]-08-05 18:13:00 Test Item Value Reference Range Interpretation Comments INR (test code = INR) 1.39 1 0.85-1.17 [place] [address]-08-05 18:13:00 Test Item Value Reference Range Interpretation Comments PTT (test code = PTT) 35.0 s 22.9-35.8 [place] [address]-08-05 18:13:00 Test Item Value Reference Range Interpretation Comments Plt Morph (test code = Normal (01/02/22 1:13 PM) Plt Morph) [id number] 18:13:00 Test Item Value Reference Range Interpretation Comments Segs (test code = Segs) 76.4 45.0-75.0 [place] [address]-08-05 18:13:00 Test Item Value Reference Range Interpretation Comments Lymphocytes (test code = Lymphocytes) 14.6 20.0-40.0 [place] [address]-08-05 18:13:00 Test Item Value Reference Range Interpretation Comments Monocytes (test code = Monocytes) 7.5 2.0-12.0 [place] [address]-08-05 18:13:00 Test Item Value Reference Range Interpretation Comments Eosinophils (test code = 0.6 See_Comment [A utomated message] The Eosinophils) system which ge nerated this result tra nsmitted reference range : <=4.0. The reference r samantha was not used to int erpret this result as normal/abnormal . [facility] [id number] 18:13:00 Test Item Value Reference Range Interpretation Comments Basophils (test code = 0.9 See_Comment [Aut omated message] The Basophils) system which ge nerated this result tra nsmitted reference range : <=1.0. The reference r samantha was not used to int erpret this result as normal/abnormal . [facility] [id number] 18:13:00 Test Item Value Reference Range Interpretation Comments Neutrophils # (test code = Neutrophils 3.7 1.5-8.1 #) [id number] 18:13:00 Test Item Value Reference Range Interpretation Comments Lymphocytes # (test code = Lymphocytes 0.7 1.0-5.5 #) [facility] HospitalVswrzloMRNSAEBBYX6406-35-34 18:13:00 Test Item Value Reference Range Interpretation Comments Monocytes # (test code 0.4 See_Comment [Aut omated message] The = Monocytes #) system which generated this result tra nsmitted reference range : <=0.8. The reference r samantha was not used to int erpret this result as normal/abnormal . [facility] [id number] 18:13:00 Test Item Value Reference Range Interpretation Comments Anisocyte (test code = 2+ *ABN*(01/02/22 1:13 Anisocyte) PM) [facility] HospitalOgymkimZERWGSCIEY3227-38-95 18:13:00 Test Item Value Reference Range Interpretation Comments Macrocyte (test code = 2+ *ABN*(01/02/22 1:13 Macrocyte) PM) [facility]ARD[facility] [id number] 18:13:00 Test Item Value Reference Range Interpretation Comments HS Troponin I (test code = HS Troponin 156 I) [facility] PasoSoloingles.[facility] [id number] 18:13:00 Test Item Value Reference Range Interpretation Comments Glucose Lvl (test code = Glucose Lvl) 237 70-99 [facility] [id number] 18:13:00 Test Item Value Reference Range Interpretation Comments BUN (test code = BUN) 46 7-22 [facility]oSoloingles.[facility] [id number] 18:13:00 Test Item Value Reference Range Interpretation Comments Creatinine Lvl (test code = Creatinine 5.92 0.50-1.40 Lvl) [facility]oSoloingles[facility] [id number] 18:13:00 Test Item Value Reference Range Interpretation Comments Sodium Lvl (test code = Sodium Lvl) 134 135-145 [place] 662952-08-05 18:13:00 Test Item Value Reference Range Interpretation Comments Potassium Lvl (test code = Potassium 4.4 3.5-5.1 Lvl) [place] 662952-08-05 18:13:00 Test Item Value Reference Range Interpretation Comments Chloride Lvl (test code = Chloride Lvl) 98 95-109 [facility] HospitalSoftware Spectrum CorporationKATIE V[place]LE [id number] 18:13:00 Test Item Value Reference Range Interpretation Comments CO2 (test code = CO2) 29 24-32 [place] [address]-08-05 18:13:00 Test Item Value Reference Range Interpretation Comments Calcium Lvl (test code = Calcium Lvl) 9.2 8.5-10.5 [facility] HospitalSoftware Spectrum CorporationJOEL [place] [id number] 18:13:00 Test Item Value Reference Range Interpretation Comments Total Protein (test code = Total 6.6 6.4-8.4 Protein) [place] [address]-08-05 18:13:00 Test Item Value Reference Range Interpretation Comments Albumin Lvl (test code = Albumin Lvl) 3.1 3.5-5.0 [facility] HospitalSoftware Spectrum CorporationJOEL V[place]LE [id number] 18:13:00 Test Item Value Reference Range Interpretation Comments ALT (test code = ALT) 36 See_Comment [Auto mated message] The system which ge nerated this result transmit swathi reference range : <=65. The reference range was not used to interpr et this result as deny l/abnormal. [facility] PasoSoloingles.[facility] [id number] 18:13:00 Test Item Value Reference Range Interpretation Comments AST (test code = AST) 28 See_Comment [Auto mated message] The system which ge nerated this result transmit swathi reference range : <=37. The reference range was not used to interpr et this result as deny l/abnormal. [facility] HospitalA[facility] Systems [id number] 18:13:00 Test Item Value Reference Range Interpretation Comments Alk Phos (test code = Alk Phos) 231 39-136 [place] [address]-08-05 18:13:00 Test Item Value Reference Range Interpretation Comments Bili Total (test code = Bili Total) 1.0 0.2-1.3 [facility] PasoSoloingles.[facility] [id number] 18:13:00 Test Item Value Reference Range Interpretation Comments AGAP (test code = AGAP) 11.4 10.0-20.0 [place] [address]-08-05 18:13:00 Test Item Value Reference Range Interpretation Comments B/C Ratio (test code = B/C Ratio) 8 1 6-[address]08-05 18:13:00 Test Item Value Reference Range Interpretation Comments Globulin (test code = Globulin) 3.5 2.7-4.2 [place] [address]-08-05 18:13:00 Test Item Value Reference Range Interpretation Comments A/G Ratio (test code = A/G Ratio) 0.9 1 0.7-1.6 [place] [address]-08-05 18:13:00 Test Item Value Reference Range Interpretation Comments eGFR (test code = eGFR) 9 [place] [address]-08-05 18:13:00 Test Item Value Reference Range Interpretation Comments WBC (test code = WBC) 4.8 3.7-10.4 [place] [address]-08-05 18:13:00 Test Item Value Reference Range Interpretation Comments RBC (test code = RBC) 1.93 4.70-6.10 [place] [address]-08-05 18:13:00 Test Item Value Reference Range Interpretation Comments Hgb (test code = Hgb) 7.2 14.0-18.0 [place] [address]-08-05 18:13:00 Test Item Value Reference Range Interpretation Comments Hct (test code = Hct) 21.2 42.0-54.0 [place] [address]-08-05 18:13:00 Test Item Value Reference Range Interpretation Comments MCV (test code = MCV) 110.1 80.0-94.0 [place] [address]-08-05 18:13:00 Test Item Value Reference Range Interpretation Comments MCH (test code = MCH) 37.1 pg 27.0-31.0 [place] [address]-08-05 18:13:00 Test Item Value Reference Range Interpretation Comments MCHC (test code = MCHC) 33.7 32.0-36.0 [place] [address]-08-05 18:13:00 Test Item Value Reference Range Interpretation Comments RDW (test code = RDW) 25.8 11.5-14.5 [facility] [id number] 18:13:00 Test Item Value Reference Range Interpretation Comments Platelet (test code = Platelet) 216 133-450 [place] 475022-08-05 18:13:00 Test Item Value Reference Range Interpretation Comments MPV (test code = MPV) 8.2 7.4-10.4 [place] 475022-08-05 18:13:00 Test Item Value Reference Range Interpretation Comments PT (test code = PT) 16.9 s 12.0-14.7 [place] [address]-08-05 18:13:00 Test Item Value Reference Range Interpretation Comments INR (test code = INR) 1.39 1 0.85-1.17 [place] [address]-08-05 18:13:00 Test Item Value Reference Range Interpretation Comments PTT (test code = PTT) 35.0 s 22.9-35.8 [place] [address]-08-05 18:13:00 Test Item Value Reference Range Interpretation Comments Plt Morph (test code = Normal (01/02/22 1:13 PM) Plt Morph) [facility] BudaJjkwohtJMDHYPSIHV0989-11-08 18:13:00 Test Item Value Reference Range Interpretation Comments Segs (test code = Segs) 76.4 45.0-75.0 [facility] [id number] 18:13:00 Test Item Value Reference Range Interpretation Comments Lymphocytes (test code = Lymphocytes) 14.6 20.0-40.0 [place] 475022-08-05 18:13:00 Test Item Value Reference Range Interpretation Comments Monocytes (test code = Monocytes) 7.5 2.0-12.0 [place] [address]-08-05 18:13:00 Test Item Value Reference Range Interpretation Comments Eosinophils (test code = 0.6 See_Comment [A utomated message] The Eosinophils) system which ge nerated this result tra nsmitted reference range : <=4.0. The reference r samantha was not used to int erpret this result as normal/abnormal . [place] 475022-08-05 18:13:00 Test Item Value Reference Range Interpretation Comments Basophils (test code = 0.9 See_Comment [Aut omated message] The Basophils) system which ge nerated this result tra nsmitted reference range : <=1.0. The reference r samantha was not used to int erpret this result as normal/abnormal . [facility] [id number] 18:13:00 Test Item Value Reference Range Interpretation Comments Neutrophils # (test code = Neutrophils 3.7 1.5-8.1 #) [facility] HospitalRwfiyhgMZUOTUQCKS3606-79-83 18:13:00 Test Item Value Reference Range Interpretation Comments Lymphocytes # (test code = Lymphocytes 0.7 1.0-5.5 #) [facility] HospitalXofprwxIZDLRCPIMH1207-97-99 18:13:00 Test Item Value Reference Range Interpretation Comments Monocytes # (test code 0.4 See_Comment [Aut omated message] The = Monocytes #) system which generated this result tra nsmitted reference range : <=0.8. The reference r samantha was not used to int erpret this result as normal/abnormal . [facility] [id number] 18:13:00 Test Item Value Reference Range Interpretation Comments Anisocyte (test code = 2+ *ABN*(01/02/22 1:13 Anisocyte) PM) [facility] HospitalUcsarcrNFOIDFLTSZ9196-99-09 18:13:00 Test Item Value Reference Range Interpretation Comments Macrocyte (test code = 2+ *ABN*(01/02/22 1:13 Macrocyte) PM) [facility]CARDI[facility] [id number] 18:13:00 Test Item Value Reference Range Interpretation Comments HS Troponin I (test code = HS Troponin 156 I) [facility] Systems [id number] 18:13:00 Test Item Value Reference Range Interpretation Comments Glucose Lvl (test code = Glucose Lvl) 237 70-99 [facility] PasoSoloingles.[facility] [id number] 18:13:00 Test Item Value Reference Range Interpretation Comments BUN (test code = BUN) 46 7-22 [facility] [id number] 18:13:00 Test Item Value Reference Range Interpretation Comments Creatinine Lvl (test code = Creatinine 5.92 0.50-1.40 Lvl) [facility]oSoloingles[facility] [id number] 18:13:00 Test Item Value Reference Range Interpretation Comments Sodium Lvl (test code = Sodium Lvl) 134 135-145 [address]08-05 18:13:00 Test Item Value Reference Range Interpretation Comments Potassium Lvl (test code = Potassium 4.4 3.5-5.1 Lvl) [address]08-05 18:13:00 Test Item Value Reference Range Interpretation Comments Chloride Lvl (test code = Chloride Lvl) 98 95-109 [address]08-05 18:13:00 Test Item Value Reference Range Interpretation Comments CO2 (test code = CO2) 29 24-32 [address]08-05 18:13:00 Test Item Value Reference Range Interpretation Comments Calcium Lvl (test code = Calcium Lvl) 9.2 8.5-10.5 [address]08-05 18:13:00 Test Item Value Reference Range Interpretation Comments Total Protein (test code = Total 6.6 6.4-8.4 Protein) [address]08-05 18:13:00 Test Item Value Reference Range Interpretation Comments Albumin Lvl (test code = Albumin Lvl) 3.1 3.5-5.0 [address]08-05 18:13:00 Test Item Value Reference Range Interpretation Comments ALT (test code = ALT) 36 See_Comment [Auto mated message] The system which ge nerated this result transmit swathi reference range : <=65. The reference range was not used to interpr et this result as deny l/abnormal. [address]08-05 18:13:00 Test Item Value Reference Range Interpretation Comments AST (test code = AST) 28 See_Comment [Auto mated message] The system which ge nerated this result transmit swathi reference range : <=37. The reference range was not used to interpr et this result as deny l/abnormal. [address]08-05 18:13:00 Test Item Value Reference Range Interpretation Comments Alk Phos (test code = Alk Phos) 231 39-136 [place] [address]-08-05 18:13:00 Test Item Value Reference Range Interpretation Comments Bili Total (test code = Bili Total) 1.0 0.2-1.3 [address]08-05 18:13:00 Test Item Value Reference Range Interpretation Comments AGAP (test code = AGAP) 11.4 10.0-20.0 [place] 662952-08-05 18:13:00 Test Item Value Reference Range Interpretation Comments B/C Ratio (test code = B/C Ratio) 8 1 6-25 [place] [address]-08-05 18:13:00 Test Item Value Reference Range Interpretation Comments Globulin (test code = Globulin) 3.5 2.7-4.2 [place] [address]-08-05 18:13:00 Test Item Value Reference Range Interpretation Comments A/G Ratio (test code = A/G Ratio) 0.9 1 0.7-1.6 [place] [address]-08-05 18:13:00 Test Item Value Reference Range Interpretation Comments eGFR (test code = eGFR) 9 [place] [address]-08-05 18:13:00 Test Item Value Reference Range Interpretation Comments WBC (test code = WBC) 4.8 3.7-10.4 [place] [address]-08-05 18:13:00 Test Item Value Reference Range Interpretation Comments RBC (test code = RBC) 1.93 4.70-6.10 [place] [address]-08-05 18:13:00 Test Item Value Reference Range Interpretation Comments Hgb (test code = Hgb) 7.2 14.0-18.0 [place] [address]-08-05 18:13:00 Test Item Value Reference Range Interpretation Comments Hct (test code = Hct) 21.2 42.0-54.0 [place] [address]-08-05 18:13:00 Test Item Value Reference Range Interpretation Comments MCV (test code = MCV) 110.1 80.0-94.0 [place] [address]-08-05 18:13:00 Test Item Value Reference Range Interpretation Comments MCH (test code = MCH) 37.1 pg 27.0-31.0 [place] [address]-08-05 18:13:00 Test Item Value Reference Range Interpretation Comments MCHC (test code = MCHC) 33.7 32.0-36.0 [place] [address]-08-05 18:13:00 Test Item Value Reference Range Interpretation Comments RDW (test code = RDW) 25.8 11.5-14.5 [place] [address]-08-05 18:13:00 Test Item Value Reference Range Interpretation Comments Platelet (test code = Platelet) 216 133-450 [address]08-05 18:13:00 Test Item Value Reference Range Interpretation Comments MPV (test code = MPV) 8.2 7.4-10.4 [address]08-05 18:13:00 Test Item Value Reference Range Interpretation Comments PT (test code = PT) 16.9 s 12.0-14.7 [place] [address]-08-05 18:13:00 Test Item Value Reference Range Interpretation Comments INR (test code = INR) 1.39 1 0.85-1.[address]08-05 18:13:00 Test Item Value Reference Range Interpretation Comments PTT (test code = PTT) 35.0 s 22.9-35.8 [address]08-05 18:13:00 Test Item Value Reference Range Interpretation Comments Plt Morph (test code = Normal (01/02/22 1:13 PM) Plt Morph) [address]08-05 18:13:00 Test Item Value Reference Range Interpretation Comments Segs (test code = Segs) 76.4 45.0-75.0 [address]08-05 18:13:00 Test Item Value Reference Range Interpretation Comments Lymphocytes (test code = Lymphocytes) 14.6 20.0-40.0 [address]08-05 18:13:00 Test Item Value Reference Range Interpretation Comments Monocytes (test code = Monocytes) 7.5 2.0-12.0 [address]08-05 18:13:00 Test Item Value Reference Range Interpretation Comments Eosinophils (test code = 0.6 See_Comment [A utomated message] The Eosinophils) system which ge nerated this result tra nsmitted reference range : <=4.0. The reference r samantha was not used to int erpret this result as normal/abnormal . [address]08-05 18:13:00 Test Item Value Reference Range Interpretation Comments Basophils (test code = 0.9 See_Comment [Aut omated message] The Basophils) system which ge nerated this result tra nsmitted reference range : <=1.0. The reference r samantha was not used to int erpret this result as normal/abnormal . [facility] [id number] 18:13:00 Test Item Value Reference Range Interpretation Comments Neutrophils # (test code = Neutrophils 3.7 1.5-8.1 #) [facility] [id number] 18:13:00 Test Item Value Reference Range Interpretation Comments Lymphocytes # (test code = Lymphocytes 0.7 1.0-5.5 #) [facility] [id number] 18:13:00 Test Item Value Reference Range Interpretation Comments Monocytes # (test code 0.4 See_Comment [Aut omated message] The = Monocytes #) system which generated this result tra nsmitted reference range : <=0.8. The reference r samantha was not used to int erpret this result as normal/abnormal . [facility] [id number] 18:13:00 Test Item Value Reference Range Interpretation Comments Anisocyte (test code = 2+ *ABN*(01/02/22 1:13 Anisocyte) PM) [facility] [id number] 18:13:00 Test Item Value Reference Range Interpretation Comments Macrocyte (test code = 2+ *ABN*(01/02/22 1:13 Macrocyte) PM) [facility]2022-08-05 18:13:00 Test Item Value Reference Range Interpretation Comments HS Troponin I (test code = HS Troponin 156 I) [facility]2022-08-05 18:13:00 Test Item Value Reference Range Interpretation Comments Glucose Lvl (test code = Glucose Lvl) 237 70-99 [facility]2022-08-05 18:13:00 Test Item Value Reference Range Interpretation Comments BUN (test code = BUN) 46 7-22 [facility]2022-08-05 18:13:00 Test Item Value Reference Range Interpretation Comments Creatinine Lvl (test code = Creatinine 5.92 0.50-1.40 Lvl) [facility]2022-08-05 18:13:00 Test Item Value Reference Range Interpretation Comments Sodium Lvl (test code = Sodium Lvl) 134 135-145 [facility]2022-08-05 18:13:00 Test Item Value Reference Range Interpretation Comments Potassium Lvl (test code = Potassium 4.4 3.5-5.1 Lvl) [address]08-05 18:13:00 Test Item Value Reference Range Interpretation Comments Chloride Lvl (test code = Chloride Lvl) 98 95-109 [address]08-05 18:13:00 Test Item Value Reference Range Interpretation Comments CO2 (test code = CO2) 29 24-32 [address]08-05 18:13:00 Test Item Value Reference Range Interpretation Comments Calcium Lvl (test code = Calcium Lvl) 9.2 8.5-10.5 [address]08-05 18:13:00 Test Item Value Reference Range Interpretation Comments Total Protein (test code = Total 6.6 6.4-8.4 Protein) [address]08-05 18:13:00 Test Item Value Reference Range Interpretation Comments Albumin Lvl (test code = Albumin Lvl) 3.1 3.5-5.0 [address]08-05 18:13:00 Test Item Value Reference Range Interpretation Comments ALT (test code = ALT) 36 See_Comment [Auto mated message] The system which ge nerated this result transmit swathi reference range : <=65. The reference range was not used to interpr et this result as deny l/abnormal. [address]08-05 18:13:00 Test Item Value Reference Range Interpretation Comments AST (test code = AST) 28 See_Comment [Auto mated message] The system which ge nerated this result transmit swathi reference range : <=37. The reference range was not used to interpr et this result as deny l/abnormal. [place] [address]-08-05 18:13:00 Test Item Value Reference Range Interpretation Comments Alk Phos (test code = Alk Phos) 231 39-136 [place] [address]-08-05 18:13:00 Test Item Value Reference Range Interpretation Comments Bili Total (test code = Bili Total) 1.0 0.2-1.3 [address]08-05 18:13:00 Test Item Value Reference Range Interpretation Comments AGAP (test code = AGAP) 11.4 10.0-20.0 [address]08-05 18:13:00 Test Item Value Reference Range Interpretation Comments B/C Ratio (test code = B/C Ratio) 8 1 6-25 [address]08-05 18:13:00 Test Item Value Reference Range Interpretation Comments Globulin (test code = Globulin) 3.5 2.7-4.[address]08-05 18:13:00 Test Item Value Reference Range Interpretation Comments A/G Ratio (test code = A/G Ratio) 0.9 1 0.7-1.6 [address]08-05 18:13:00 Test Item Value Reference Range Interpretation Comments eGFR (test code = eGFR) [address]08-05 18:13:00 Test Item Value Reference Range Interpretation Comments WBC (test code = WBC) 4.8 3.7-10.[address]08-05 18:13:00 Test Item Value Reference Range Interpretation Comments RBC (test code = RBC) 1.93 4.70-6.[address]08-05 18:13:00 Test Item Value Reference Range Interpretation Comments Hgb (test code = Hgb) 7.2 14.0-18.0 [place] [address]-08-05 18:13:00 Test Item Value Reference Range Interpretation Comments Hct (test code = Hct) 21.2 42.0-54.0 [address]08-05 18:13:00 Test Item Value Reference Range Interpretation Comments MCV (test code = MCV) 110.1 80.0-94.0 [address]08-05 18:13:00 Test Item Value Reference Range Interpretation Comments MCH (test code = MCH) 37.1 pg 27.0-31.0 [place] [address]-08-05 18:13:00 Test Item Value Reference Range Interpretation Comments MCHC (test code = MCHC) 33.7 32.0-36.0 [place] [address]-08-05 18:13:00 Test Item Value Reference Range Interpretation Comments RDW (test code = RDW) 25.8 11.5-14.5 [place] [address]-08-05 18:13:00 Test Item Value Reference Range Interpretation Comments Platelet (test code = Platelet) 216 133-450 [place] [address]-08-05 18:13:00 Test Item Value Reference Range Interpretation Comments MPV (test code = MPV) 8.2 7.4-10.4 [place] [address]-08-05 18:13:00 Test Item Value Reference Range Interpretation Comments PT (test code = PT) 16.9 s 12.0-14.7 [place] [address]-08-05 18:13:00 Test Item Value Reference Range Interpretation Comments INR (test code = INR) 1.39 1 0.85-1.17 [place] [address]-08-05 18:13:00 Test Item Value Reference Range Interpretation Comments PTT (test code = PTT) 35.0 s 22.9-35.8 [place] [address]-08-05 18:13:00 Test Item Value Reference Range Interpretation Comments Plt Morph (test code = Normal (01/02/22 1:13 PM) Plt Morph) [place] [address]-08-05 18:13:00 Test Item Value Reference Range Interpretation Comments Segs (test code = Segs) 76.4 45.0-75.0 [place] [address]-08-05 18:13:00 Test Item Value Reference Range Interpretation Comments Lymphocytes (test code = Lymphocytes) 14.6 20.0-40.0 [place] [address]-08-05 18:13:00 Test Item Value Reference Range Interpretation Comments Monocytes (test code = Monocytes) 7.5 2.0-12.0 [place] [address]-08-05 18:13:00 Test Item Value Reference Range Interpretation Comments Eosinophils (test code = 0.6 See_Comment [A utomated message] The Eosinophils) system which ge nerated this result tra nsmitted reference range : <=4.0. The reference r samantha was not used to int erpret this result as normal/abnormal . [place] [address]-08-05 18:13:00 Test Item Value Reference Range Interpretation Comments Basophils (test code = 0.9 See_Comment [Aut omated message] The Basophils) system which ge nerated this result tra nsmitted reference range : <=1.0. The reference r samantha was not used to int erpret this result as normal/abnormal . [address]08-05 18:13:00 Test Item Value Reference Range Interpretation Comments Neutrophils # (test code = Neutrophils 3.7 1.5-8.1 #) [place] [address]-08-05 18:13:00 Test Item Value Reference Range Interpretation Comments Lymphocytes # (test code = Lymphocytes 0.7 1.0-5.5 #) [place] [address]-08-05 18:13:00 Test Item Value Reference Range Interpretation Comments Monocytes # (test code 0.4 See_Comment [Aut omated message] The = Monocytes #) system which generated this result tra nsmitted reference range : <=0.8. The reference r samantha was not used to int erpret this result as normal/abnormal . [address]08-05 18:13:00 Test Item Value Reference Range Interpretation Comments Anisocyte (test code = 2+ *ABN*(01/02/22 1:13 Anisocyte) PM) [address]08-05 18:13:00 Test Item Value Reference Range Interpretation Comments Macrocyte (test code = 2+ *ABN*(01/02/22 1:13 Macrocyte) PM) [facility]2022-07-19 09:29:00 Test Item Value Reference Range Interpretation Comments Glucose Lvl (test code = Glucose Lvl) 199 70-99 [place] 662952-07-19 09:29:00 Test Item Value Reference Range Interpretation Comments BUN (test code = BUN) 28 7-22 [place] 662952-07-19 09:29:00 Test Item Value Reference Range Interpretation Comments Creatinine Lvl (test code = Creatinine 4.84 0.50-1.40 Lvl) [place]2952-07-19 09:29:00 Test Item Value Reference Range Interpretation Comments Sodium Lvl (test code = Sodium Lvl) 134 135-145 [place] 662952-07-19 09:29:00 Test Item Value Reference Range Interpretation Comments Potassium Lvl (test code = Potassium 4.3 3.5-5.1 Lvl) [place]2952-07-19 09:29:00 Test Item Value Reference Range Interpretation Comments Chloride Lvl (test code = Chloride Lvl) 100 95-109 [place] 662952-07-19 09:29:00 Test Item Value Reference Range Interpretation Comments CO2 (test code = CO2) 28 24-32 [place] 662952-07-19 09:29:00 Test Item Value Reference Range Interpretation Comments Calcium Lvl (test code = Calcium Lvl) 9.4 8.5-10.5 [place] 662952-07-19 09:29:00 Test Item Value Reference Range Interpretation Comments Total Protein (test code = Total 6.6 6.4-8.4 Protein) [place] 662952-07-19 09:29:00 Test Item Value Reference Range Interpretation Comments Albumin Lvl (test code = Albumin Lvl) 3.0 3.5-5.0 [place] 662952-07-19 09:29:00 Test Item Value Reference Range Interpretation Comments ALT (test code = ALT) 92 See_Comment [Auto mated message] The system which ge nerated this result transmit swathi reference range : <=65. The reference range was not used to interpr et this result as deny l/abnormal. [place]2952-07-19 09:29:00 Test Item Value Reference Range Interpretation Comments AST (test code = AST) 123 See_Comment [Auto mated message] The system which ge nerated this result transmit swathi reference range : <=37. The reference range was not used to interpr et this result as deny l/abnormal. [place] 662952-07-19 09:29:00 Test Item Value Reference Range Interpretation Comments Alk Phos (test code = Alk Phos) 272 39-136 [place] 662952-07-19 09:29:00 Test Item Value Reference Range Interpretation Comments Bili Total (test code = Bili Total) 0.9 0.2-1.3 [place] 662952-07-19 09:29:00 Test Item Value Reference Range Interpretation Comments AGAP (test code = AGAP) 10.3 10.0-20.0 [place] 662952-07-19 09:29:00 Test Item Value Reference Range Interpretation Comments B/C Ratio (test code = B/C Ratio) 6 1 6-25 [email or web address] [employer] [id number] 09:29:00 Test Item Value Reference Range Interpretation Comments Globulin (test code = Globulin) 3.6 2.7-4.2 [facility]2022-07-19 09:29:00 Test Item Value Reference Range Interpretation Comments A/G Ratio (test code = A/G Ratio) 0.8 1 0.7-1.6 [facility]2022-07-19 09:29:00 Test Item Value Reference Range Interpretation Comments eGFR (test code = eGFR) 12 [facility]2022-07-19 09:29:00 Test Item Value Reference Range Interpretation Comments Phosphorus (test code = Phosphorus) 4.3 2.5-4.5 [id number] 09:29:00 Test Item Value Reference Range Interpretation Comments WBC (test code = WBC) 4.7 3.7-10.4 [facility] [id number] 09:29:00 Test Item Value Reference Range Interpretation Comments RBC (test code = RBC) 2.14 4.70-6.10 [facility] [id number] 09:29:00 Test Item Value Reference Range Interpretation Comments Hgb (test code = Hgb) 7.6 14.0-18.0 [facility] [id number] 09:29:00 Test Item Value Reference Range Interpretation Comments Hct (test code = Hct) 22.8 42.0-54.0 [facility] [id number] 09:29:00 Test Item Value Reference Range Interpretation Comments MCV (test code = MCV) 106.6 80.0-94.0 [place] 475022-07-19 09:29:00 Test Item Value Reference Range Interpretation Comments MCH (test code = MCH) 35.6 pg 27.0-31.0 [place] 475022-07-19 09:29:00 Test Item Value Reference Range Interpretation Comments MCHC (test code = MCHC) 33.4 32.0-36.0 [facility] [id number] 09:29:00 Test Item Value Reference Range Interpretation Comments RDW (test code = RDW) 24.3 11.5-14.5 [facility] [id number] 09:29:00 Test Item Value Reference Range Interpretation Comments Platelet (test code = Platelet) 148 133-450 [facility] [id number] 09:29:00 Test Item Value Reference Range Interpretation Comments MPV (test code = MPV) 8.1 7.4-10.4 [place] 475022-07-19 09:29:00 Test Item Value Reference Range Interpretation Comments D-Dimer (test code = D-Dimer) 3.63 [place] 475022-07-19 09:29:00 Test Item Value Reference Range Interpretation Comments Segs (test code = Segs) 74.8 45.0-75.0 [place] 475022-07-19 09:29:00 Test Item Value Reference Range Interpretation Comments Lymphocytes (test code = Lymphocytes) 15.5 20.0-40.0 [place] 475022-07-19 09:29:00 Test Item Value Reference Range Interpretation Comments Monocytes (test code = Monocytes) 9.5 2.0-12.0 [place] 475022-07-19 09:29:00 Test Item Value Reference Range Interpretation Comments Basophils (test code = 0.2 See_Comment [Aut omated message] The Basophils) system which ge nerated this result tra nsmitted reference range : <=1.0. The reference r samantha was not used to int erpret this result as normal/abnormal . [facility] [id number] 09:29:00 Test Item Value Reference Range Interpretation Comments Neutrophils # (test code = Neutrophils 3.5 1.5-8.1 #) [place] 475022-07-19 09:29:00 Test Item Value Reference Range Interpretation Comments Lymphocytes # (test code = Lymphocytes 0.7 1.0-5.5 #) [place] 475022-07-19 09:29:00 Test Item Value Reference Range Interpretation Comments Monocytes # (test code 0.4 See_Comment [Aut omated message] The = Monocytes #) system which generated this result tra nsmitted reference range : <=0.8. The reference r samantha was not used to int erpret this result as normal/abnormal . [place] 475022-07-19 09:29:00 Test Item Value Reference Range Interpretation Comments Macrocyte (test code = 1+ *ABN*(12/16/21 Macrocyte) 4:29 AM) [facility] PasoWeaswnoLXQWCQPDVT0787-51-97 09:29:00 Test Item Value Reference Range Interpretation Comments C-REACTIVE PROTEIN (test code = 19.0 C-REACTIVE PROTEIN) [place] 662952-07-19 09:29:00 Test Item Value Reference Range Interpretation Comments Glucose Lvl (test code = Glucose Lvl) 199 70-99 [place] 662952-07-19 09:29:00 Test Item Value Reference Range Interpretation Comments BUN (test code = BUN) 28 7-22 [place] 662952-07-19 09:29:00 Test Item Value Reference Range Interpretation Comments Creatinine Lvl (test code = Creatinine 4.84 0.50-1.40 Lvl) [place]2952-07-19 09:29:00 Test Item Value Reference Range Interpretation Comments Sodium Lvl (test code = Sodium Lvl) 134 135-145 [place] 662952-07-19 09:29:00 Test Item Value Reference Range Interpretation Comments Potassium Lvl (test code = Potassium 4.3 3.5-5.1 Lvl) [place] 662952-07-19 09:29:00 Test Item Value Reference Range Interpretation Comments Chloride Lvl (test code = Chloride Lvl) 100 95-109 [place] 662952-07-19 09:29:00 Test Item Value Reference Range Interpretation Comments CO2 (test code = CO2) 28 24-32 [place]2952-07-19 09:29:00 Test Item Value Reference Range Interpretation Comments Calcium Lvl (test code = Calcium Lvl) 9.4 8.5-10.5 [place]2952-07-19 09:29:00 Test Item Value Reference Range Interpretation Comments Total Protein (test code = Total 6.6 6.4-8.4 Protein) [place]2952-07-19 09:29:00 Test Item Value Reference Range Interpretation Comments Albumin Lvl (test code = Albumin Lvl) 3.0 3.5-5.0 [place]2952-07-19 09:29:00 Test Item Value Reference Range Interpretation Comments ALT (test code = ALT) 92 See_Comment [Auto mated message] The system which ge nerated this result transmit swathi reference range : <=65. The reference range was not used to interpr et this result as deny l/abnormal. [place]2952-07-19 09:29:00 Test Item Value Reference Range Interpretation Comments Glucose Lvl (test code = Glucose Lvl) 199 70-99 [place]2952-07-19 09:29:00 Test Item Value Reference Range Interpretation Comments BUN (test code = BUN) 28 7-22 [place] 662952-07-19 09:29:00 Test Item Value Reference Range Interpretation Comments Creatinine Lvl (test code = Creatinine 4.84 0.50-1.40 Lvl) [place]2952-07-19 09:29:00 Test Item Value Reference Range Interpretation Comments Sodium Lvl (test code = Sodium Lvl) 134 135-145 [place]2952-07-19 09:29:00 Test Item Value Reference Range Interpretation Comments AST (test code = AST) 123 See_Comment [Auto mated message] The system which ge nerated this result transmit swathi reference range : <=37. The reference range was not used to interpr et this result as deny l/abnormal. [place]2952-07-19 09:29:00 Test Item Value Reference Range Interpretation Comments Potassium Lvl (test code = Potassium 4.3 3.5-5.1 Lvl) [place]2952-07-19 09:29:00 Test Item Value Reference Range Interpretation Comments Chloride Lvl (test code = Chloride Lvl) 100 95-109 [place] 662952-07-19 09:29:00 Test Item Value Reference Range Interpretation Comments CO2 (test code = CO2) 28 24-32 [place] 662952-07-19 09:29:00 Test Item Value Reference Range Interpretation Comments Calcium Lvl (test code = Calcium Lvl) 9.4 8.5-10.5 [place]2952-07-19 09:29:00 Test Item Value Reference Range Interpretation Comments Total Protein (test code = Total 6.6 6.4-8.4 Protein) [place] 662952-07-19 09:29:00 Test Item Value Reference Range Interpretation Comments Albumin Lvl (test code = Albumin Lvl) 3.0 3.5-5.0 [place]2952-07-19 09:29:00 Test Item Value Reference Range Interpretation Comments ALT (test code = ALT) 92 See_Comment [Auto mated message] The system which ge nerated this result transmit swathi reference range : <=65. The reference range was not used to interpr et this result as deny l/abnormal. [facility] [id number] 09:29:00 Test Item Value Reference Range Interpretation Comments AST (test code = AST) 123 See_Comment [Auto mated message] The system which ge nerated this result transmit swathi reference range : <=37. The reference range was not used to interpr et this result as deny l/abnormal. [facility] [id number] 09:29:00 Test Item Value Reference Range Interpretation Comments Alk Phos (test code = Alk Phos) 272 39-136 [facility] [id number] 09:29:00 Test Item Value Reference Range Interpretation Comments Bili Total (test code = Bili Total) 0.9 0.2-1.3 [facility] [id number] 09:29:00 Test Item Value Reference Range Interpretation Comments Alk Phos (test code = Alk Phos) 272 39-136 [facility] [id number] 09:29:00 Test Item Value Reference Range Interpretation Comments AGAP (test code = AGAP) 10.3 10.0-20.0 [facility] [id number] 09:29:00 Test Item Value Reference Range Interpretation Comments B/C Ratio (test code = B/C Ratio) 6 1 6-25 [facility] [id number] 09:29:00 Test Item Value Reference Range Interpretation Comments Globulin (test code = Globulin) 3.6 2.7-4.2 [facility] [id number] 09:29:00 Test Item Value Reference Range Interpretation Comments A/G Ratio (test code = A/G Ratio) 0.8 1 0.7-1.6 [facility] [id number] 09:29:00 Test Item Value Reference Range Interpretation Comments eGFR (test code = eGFR) 12 [facility] [id number] 09:29:00 Test Item Value Reference Range Interpretation Comments Phosphorus (test code = Phosphorus) 4.3 2.5-4.5 [facility] [id number] 09:29:00 Test Item Value Reference Range Interpretation Comments WBC (test code = WBC) 4.7 3.7-10.4 [place] 475022-07-19 09:29:00 Test Item Value Reference Range Interpretation Comments RBC (test code = RBC) 2.14 4.70-6.10 [facility] [id number] 09:29:00 Test Item Value Reference Range Interpretation Comments Hgb (test code = Hgb) 7.6 14.0-18.0 [facility] [id number] 09:29:00 Test Item Value Reference Range Interpretation Comments Hct (test code = Hct) 22.8 42.0-54.0 [facility]2022-07-19 09:29:00 Test Item Value Reference Range Interpretation Comments Bili Total (test code = Bili Total) 0.9 0.2-1.3 [facility] [id number] 09:29:00 Test Item Value Reference Range Interpretation Comments MCV (test code = MCV) 106.6 80.0-94.0 [facility] BudaG[id number] 09:29:00 Test Item Value Reference Range Interpretation Comments MCH (test code = MCH) 35.6 pg 27.0-31.0 [facility] [id number] 09:29:00 Test Item Value Reference Range Interpretation Comments MCHC (test code = MCHC) 33.4 32.0-36.0 [facility] BudaHkykejgYXKEXXALFX2326-11-11 09:29:00 Test Item Value Reference Range Interpretation Comments RDW (test code = RDW) 24.3 11.5-14.5 [facility] Bu[id number] 09:29:00 Test Item Value Reference Range Interpretation Comments Platelet (test code = Platelet) 148 133-450 [facility] [id number] 09:29:00 Test Item Value Reference Range Interpretation Comments MPV (test code = MPV) 8.1 7.4-10.4 [facility] [id number] 09:29:00 Test Item Value Reference Range Interpretation Comments D-Dimer (test code = D-Dimer) 3.63 [facility] [id number] 09:29:00 Test Item Value Reference Range Interpretation Comments Segs (test code = Segs) 74.8 45.0-75.0 [facility]SadxmwzOWMOSUYNKA0342-75-31 09:29:00 Test Item Value Reference Range Interpretation Comments Lymphocytes (test code = Lymphocytes) 15.5 20.0-40.0 [facility] [id number] 09:29:00 Test Item Value Reference Range Interpretation Comments Monocytes (test code = Monocytes) 9.5 2.0-12.0 [facility]2022-07-19 09:29:00 Test Item Value Reference Range Interpretation Comments AGAP (test code = AGAP) 10.3 10.0-20.0 [facility] [id number] 09:29:00 Test Item Value Reference Range Interpretation Comments Basophils (test code = 0.2 See_Comment [Aut omated message] The Basophils) system which ge nerated this result tra nsmitted reference range : <=1.0. The reference r samantha was not used to int erpret this result as normal/abnormal . [facility] [id number] 09:29:00 Test Item Value Reference Range Interpretation Comments Neutrophils # (test code = Neutrophils 3.5 1.5-8.1 #) [facility] [id number] 09:29:00 Test Item Value Reference Range Interpretation Comments Lymphocytes # (test code = Lymphocytes 0.7 1.0-5.5 #) [facility] [id number] 09:29:00 Test Item Value Reference Range Interpretation Comments Monocytes # (test code 0.4 See_Comment [Aut omated message] The = Monocytes #) system which generated this result tra nsmitted reference range : <=0.8. The reference r samantha was not used to int erpret this result as normal/abnormal . [facility] [id number] 09:29:00 Test Item Value Reference Range Interpretation Comments Macrocyte (test code = 1+ *ABN*(12/16/21 Macrocyte) 4:29 AM) [id number] 09:29:00 Test Item Value Reference Range Interpretation Comments C-REACTIVE PROTEIN (test code = 19.0 C-REACTIVE PROTEIN) [facility]oSolo[facility] [id number] 09:29:00 Test Item Value Reference Range Interpretation Comments B/C Ratio (test code = B/C Ratio) 6 1 6-25 [place]2952-07-19 09:29:00 Test Item Value Reference Range Interpretation Comments Globulin (test code = Globulin) 3.6 2.7-4.2 [place]2952-07-19 09:29:00 Test Item Value Reference Range Interpretation Comments A/G Ratio (test code = A/G Ratio) 0.8 1 0.7-1.6 [place]2952-07-19 09:29:00 Test Item Value Reference Range Interpretation Comments eGFR (test code = eGFR) 12 [facility]2022-07-19 09:29:00 Test Item Value Reference Range Interpretation Comments Phosphorus (test code = Phosphorus) 4.3 2.5-4.5 [place] 475022-07-19 09:29:00 Test Item Value Reference Range Interpretation Comments WBC (test code = WBC) 4.7 3.7-10.4 [place] 475022-07-19 09:29:00 Test Item Value Reference Range Interpretation Comments RBC (test code = RBC) 2.14 4.70-6.10 [place] 475022-07-19 09:29:00 Test Item Value Reference Range Interpretation Comments Hgb (test code = Hgb) 7.6 14.0-18.0 [place] 475022-07-19 09:29:00 Test Item Value Reference Range Interpretation Comments Hct (test code = Hct) 22.8 42.0-54.0 [place] 475022-07-19 09:29:00 Test Item Value Reference Range Interpretation Comments MCV (test code = MCV) 106.6 80.0-94.0 [place] 475022-07-19 09:29:00 Test Item Value Reference Range Interpretation Comments MCH (test code = MCH) 35.6 pg 27.0-31.0 [place] 475022-07-19 09:29:00 Test Item Value Reference Range Interpretation Comments MCHC (test code = MCHC) 33.4 32.0-36.0 [place] 475022-07-19 09:29:00 Test Item Value Reference Range Interpretation Comments RDW (test code = RDW) 24.3 11.5-14.5 [place] [address]-07-19 09:29:00 Test Item Value Reference Range Interpretation Comments Platelet (test code = Platelet) 148 133-450 [place] 475022-07-19 09:29:00 Test Item Value Reference Range Interpretation Comments MPV (test code = MPV) 8.1 7.4-10.4 [place] [address]-07-19 09:29:00 Test Item Value Reference Range Interpretation Comments D-Dimer (test code = D-Dimer) 3.63 [place] [address]-07-19 09:29:00 Test Item Value Reference Range Interpretation Comments Segs (test code = Segs) 74.8 45.0-75.0 [place] [address]-07-19 09:29:00 Test Item Value Reference Range Interpretation Comments Lymphocytes (test code = Lymphocytes) 15.5 20.0-40.0 [place] 475022-07-19 09:29:00 Test Item Value Reference Range Interpretation Comments Monocytes (test code = Monocytes) 9.5 2.0-12.0 [place] [address]-07-19 09:29:00 Test Item Value Reference Range Interpretation Comments Basophils (test code = 0.2 See_Comment [Aut omated message] The Basophils) system which ge nerated this result tra nsmitted reference range : <=1.0. The reference r samantha was not used to int erpret this result as normal/abnormal . [facility] [id number] 09:29:00 Test Item Value Reference Range Interpretation Comments Neutrophils # (test code = Neutrophils 3.5 1.5-8.1 #) [place]5022-07-19 09:29:00 Test Item Value Reference Range Interpretation Comments Lymphocytes # (test code = Lymphocytes 0.7 1.0-5.5 #) [place] [address]-07-19 09:29:00 Test Item Value Reference Range Interpretation Comments Monocytes # (test code 0.4 See_Comment [Aut omated message] The = Monocytes #) system which generated this result tra nsmitted reference range : <=0.8. The reference r samantha was not used to int erpret this result as normal/abnormal . [place] [address]-07-19 09:29:00 Test Item Value Reference Range Interpretation Comments Macrocyte (test code = 1+ *ABN*(12/16/21 Macrocyte) 4:29 AM) [facility] PasoUjcieycPIINSFHMHQ4754-12-91 09:29:00 Test Item Value Reference Range Interpretation Comments C-REACTIVE PROTEIN (test code = 19.0 C-REACTIVE PROTEIN) [place]2952-07-19 09:29:00 Test Item Value Reference Range Interpretation Comments Glucose Lvl (test code = Glucose Lvl) 199 70-99 [place] 662952-07-19 09:29:00 Test Item Value Reference Range Interpretation Comments BUN (test code = BUN) 28 - [place] 662952-07-19 09:29:00 Test Item Value Reference Range Interpretation Comments Creatinine Lvl (test code = Creatinine 4.84 0.50-1.40 Lvl) [facility]2022-07-19 09:29:00 Test Item Value Reference Range Interpretation Comments Sodium Lvl (test code = Sodium Lvl) 134 135-145 [facility]2022-07-19 09:29:00 Test Item Value Reference Range Interpretation Comments Potassium Lvl (test code = Potassium 4.3 3.5-5.1 Lvl) [facility]2022-07-19 09:29:00 Test Item Value Reference Range Interpretation Comments Chloride Lvl (test code = Chloride Lvl) 100 95-109 [place] 662952-07-19 09:29:00 Test Item Value Reference Range Interpretation Comments CO2 (test code = CO2) 28 24-32 [place] 662952-07-19 09:29:00 Test Item Value Reference Range Interpretation Comments Calcium Lvl (test code = Calcium Lvl) 9.4 8.5-10.5 [place]2952-07-19 09:29:00 Test Item Value Reference Range Interpretation Comments Total Protein (test code = Total 6.6 6.4-8.4 Protein) [place] 662952-07-19 09:29:00 Test Item Value Reference Range Interpretation Comments Albumin Lvl (test code = Albumin Lvl) 3.0 3.5-5.0 [place]2952-07-19 09:29:00 Test Item Value Reference Range Interpretation Comments ALT (test code = ALT) 92 See_Comment [Auto mated message] The system which ge nerated this result transmit swathi reference range : <=65. The reference range was not used to interpr et this result as deny l/abnormal. [facility] [employer] [id number] 09:29:00 Test Item Value Reference Range Interpretation Comments AST (test code = AST) 123 See_Comment [Auto mated message] The system which ge nerated this result transmit swathi reference range : <=37. The reference range was not used to interpr et this result as deny l/abnormal. [facility] [employer] [id number] 09:29:00 Test Item Value Reference Range Interpretation Comments Alk Phos (test code = Alk Phos) 272 39-136 [facility] [employer] [id number] 09:29:00 Test Item Value Reference Range Interpretation Comments Bili Total (test code = Bili Total) 0.9 0.2-1.3 [facility] [id number] 09:29:00 Test Item Value Reference Range Interpretation Comments AGAP (test code = AGAP) 10.3 10.0-20.0 [facility] [employer] [id number] 09:29:00 Test Item Value Reference Range Interpretation Comments B/C Ratio (test code = B/C Ratio) 6 1 6-25 [facility] [id number] 09:29:00 Test Item Value Reference Range Interpretation Comments Globulin (test code = Globulin) 3.6 2.7-4.2 [facility] [employer] [id number] 09:29:00 Test Item Value Reference Range Interpretation Comments A/G Ratio (test code = A/G Ratio) 0.8 1 0.7-1.6 [facility] [id number] 09:29:00 Test Item Value Reference Range Interpretation Comments eGFR (test code = eGFR) 12 [facility] [employer] [id number] 09:29:00 Test Item Value Reference Range Interpretation Comments Phosphorus (test code = Phosphorus) 4.3 2.5-4.5 [facility] HospitalBgghlvzZMLASRCCON6542-18-15 09:29:00 Test Item Value Reference Range Interpretation Comments WBC (test code = WBC) 4.7 3.7-10.4 [facility] HospitalYzyffapINBKUPWQVP6007-37-58 09:29:00 Test Item Value Reference Range Interpretation Comments RBC (test code = RBC) 2.14 4.70-6.10 [facility]udaMyqpfpkWVVVEQSSLR7495-76-05 09:29:00 Test Item Value Reference Range Interpretation Comments Hgb (test code = Hgb) 7.6 14.0-18.0 [facility] BudaLzmvjhfWMGASGAHKD2969-55-03 09:29:00 Test Item Value Reference Range Interpretation Comments Hct (test code = Hct) 22.8 42.0-54.0 [facility] BudaScddzodUCFSQSJUOZ4769-76-18 09:29:00 Test Item Value Reference Range Interpretation Comments MCV (test code = MCV) 106.6 80.0-94.0 [facility] BudaVikjupoXJHLVKRLFO3883-92-94 09:29:00 Test Item Value Reference Range Interpretation Comments MCH (test code = MCH) 35.6 pg 27.0-31.0 [facility] BudaNhmwlbqGLYYOXRDQP9515-42-35 09:29:00 Test Item Value Reference Range Interpretation Comments MCHC (test code = MCHC) 33.4 32.0-36.0 [facility] BudaSjjbwlnCEXHGADYZL7049-88-03 09:29:00 Test Item Value Reference Range Interpretation Comments RDW (test code = RDW) 24.3 11.5-14.5 [facility] BudaEwphvezBZWPPSDBHY8547-99-42 09:29:00 Test Item Value Reference Range Interpretation Comments Platelet (test code = Platelet) 148 133-450 [facility] BudaAbndpbyQKUEBTNZJV9592-75-94 09:29:00 Test Item Value Reference Range Interpretation Comments MPV (test code = MPV) 8.1 7.4-10.4 [place] 475022-07-19 09:29:00 Test Item Value Reference Range Interpretation Comments D-Dimer (test code = D-Dimer) 3.63 [place] 475022-07-19 09:29:00 Test Item Value Reference Range Interpretation Comments Segs (test code = Segs) 74.8 45.0-75.0 [place] 475022-07-19 09:29:00 Test Item Value Reference Range Interpretation Comments Lymphocytes (test code = Lymphocytes) 15.5 20.0-40.0 [place] 475022-07-19 09:29:00 Test Item Value Reference Range Interpretation Comments Monocytes (test code = Monocytes) 9.5 2.0-12.0 [facility] BudaHymocroPBFQPCPEMQ7646-51-84 09:29:00 Test Item Value Reference Range Interpretation Comments Basophils (test code = 0.2 See_Comment [Aut omated message] The Basophils) system which ge nerated this result tra nsmitted reference range : <=1.0. The reference r samantha was not used to int erpret this result as normal/abnormal . [facility] BudaVmlhhjqALJRPCPNJS8540-79-29 09:29:00 Test Item Value Reference Range Interpretation Comments Neutrophils # (test code = Neutrophils 3.5 1.5-8.1 #) [facility] BudaQigbpleMTIDDXCFBA5339-63-86 09:29:00 Test Item Value Reference Range Interpretation Comments Lymphocytes # (test code = Lymphocytes 0.7 1.0-5.5 #) [facility] BudaNhaetmiHYIAWLFMUO9297-51-49 09:29:00 Test Item Value Reference Range Interpretation Comments Monocytes # (test code 0.4 See_Comment [Aut omated message] The = Monocytes #) system which generated this result tra nsmitted reference range : <=0.8. The reference r samantha was not used to int erpret this result as normal/abnormal . [facility] BudaAkkqfehIHVWQTOSPF0328-99-26 09:29:00 Test Item Value Reference Range Interpretation Comments Macrocyte (test code = 1+ *ABN*(12/16/21 Macrocyte) 4:29 AM) [facility] PasoRegztmbZYVKGEHFEG9724-24-39 09:29:00 Test Item Value Reference Range Interpretation Comments C-REACTIVE PROTEIN (test code = 19.0 C-REACTIVE PROTEIN) [facility] [email or web address][facility] [id number] 09:29:00 Test Item Value Reference Range Interpretation Comments Glucose Lvl (test code = Glucose Lvl) 199 70-99 [facility] PasoSoloingles[facility] [employer] [id number] 09:29:00 Test Item Value Reference Range Interpretation Comments BUN (test code = BUN) 28 - [facility] PasoSoloingles[facility] [id number] 09:29:00 Test Item Value Reference Range Interpretation Comments Creatinine Lvl (test code = Creatinine 4.84 0.50-1.40 Lvl) [facility] PasoSoloingles[facility] [id number] 09:29:00 Test Item Value Reference Range Interpretation Comments Sodium Lvl (test code = Sodium Lvl) 134 135-145 [place] [address]-07-19 09:29:00 Test Item Value Reference Range Interpretation Comments Potassium Lvl (test code = Potassium 4.3 3.5-5.1 Lvl) [place] 662952-07-19 09:29:00 Test Item Value Reference Range Interpretation Comments Chloride Lvl (test code = Chloride Lvl) 100 95-109 [place] 662952-07-19 09:29:00 Test Item Value Reference Range Interpretation Comments CO2 (test code = CO2) 28 24-32 [place] 662952-07-19 09:29:00 Test Item Value Reference Range Interpretation Comments Calcium Lvl (test code = Calcium Lvl) 9.4 8.5-10.5 [place] [address]-07-19 09:29:00 Test Item Value Reference Range Interpretation Comments Total Protein (test code = Total 6.6 6.4-8.4 Protein) [place] [address]-07-19 09:29:00 Test Item Value Reference Range Interpretation Comments Albumin Lvl (test code = Albumin Lvl) 3.0 3.5-5.0 [place] 662952-07-19 09:29:00 Test Item Value Reference Range Interpretation Comments ALT (test code = ALT) 92 See_Comment [Auto mated message] The system which ge nerated this result transmit swathi reference range : <=65. The reference range was not used to interpr et this result as deny l/abnormal. [place] [address]-07-19 09:29:00 Test Item Value Reference Range Interpretation Comments AST (test code = AST) 123 See_Comment [Auto mated message] The system which ge nerated this result transmit swathi reference range : <=37. The reference range was not used to interpr et this result as deny l/abnormal. [place] 662952-07-19 09:29:00 Test Item Value Reference Range Interpretation Comments Alk Phos (test code = Alk Phos) 272 39-136 [place] 662952-07-19 09:29:00 Test Item Value Reference Range Interpretation Comments Bili Total (test code = Bili Total) 0.9 0.2-1.3 [place] [address]-07-19 09:29:00 Test Item Value Reference Range Interpretation Comments AGAP (test code = AGAP) 10.3 10.0-20.0 [place] 662952-07-19 09:29:00 Test Item Value Reference Range Interpretation Comments B/C Ratio (test code = B/C Ratio) 6 1 6-25 [place] 662952-07-19 09:29:00 Test Item Value Reference Range Interpretation Comments Globulin (test code = Globulin) 3.6 2.7-4.2 [place] 662952-07-19 09:29:00 Test Item Value Reference Range Interpretation Comments A/G Ratio (test code = A/G Ratio) 0.8 1 0.7-1.6 [place] 662952-07-19 09:29:00 Test Item Value Reference Range Interpretation Comments eGFR (test code = eGFR) 12 [facility]2022-07-19 09:29:00 Test Item Value Reference Range Interpretation Comments Phosphorus (test code = Phosphorus) 4.3 2.5-4.5 [place] 475022-07-19 09:29:00 Test Item Value Reference Range Interpretation Comments WBC (test code = WBC) 4.7 3.7-10.4 [place] 475022-07-19 09:29:00 Test Item Value Reference Range Interpretation Comments RBC (test code = RBC) 2.14 4.70-6.10 [place] 475022-07-19 09:29:00 Test Item Value Reference Range Interpretation Comments Hgb (test code = Hgb) 7.6 14.0-18.0 [place] 475022-07-19 09:29:00 Test Item Value Reference Range Interpretation Comments Hct (test code = Hct) 22.8 42.0-54.0 [place] 475022-07-19 09:29:00 Test Item Value Reference Range Interpretation Comments MCV (test code = MCV) 106.6 80.0-94.0 [place] [address]-07-19 09:29:00 Test Item Value Reference Range Interpretation Comments MCH (test code = MCH) 35.6 pg 27.0-31.0 [place] 475022-07-19 09:29:00 Test Item Value Reference Range Interpretation Comments MCHC (test code = MCHC) 33.4 32.0-36.0 [place] 475022-07-19 09:29:00 Test Item Value Reference Range Interpretation Comments RDW (test code = RDW) 24.3 11.5-14.5 [place] 475022-07-19 09:29:00 Test Item Value Reference Range Interpretation Comments Platelet (test code = Platelet) 148 133-450 [place] 475022-07-19 09:29:00 Test Item Value Reference Range Interpretation Comments MPV (test code = MPV) 8.1 7.4-10.4 [place] 475022-07-19 09:29:00 Test Item Value Reference Range Interpretation Comments D-Dimer (test code = D-Dimer) 3.63 [place] [address]-07-19 09:29:00 Test Item Value Reference Range Interpretation Comments Segs (test code = Segs) 74.8 45.0-75.0 [place] 475022-07-19 09:29:00 Test Item Value Reference Range Interpretation Comments Lymphocytes (test code = Lymphocytes) 15.5 20.0-40.0 [place] 475022-07-19 09:29:00 Test Item Value Reference Range Interpretation Comments Monocytes (test code = Monocytes) 9.5 2.0-12.0 [place] [address]-07-19 09:29:00 Test Item Value Reference Range Interpretation Comments Basophils (test code = 0.2 See_Comment [Aut omated message] The Basophils) system which ge nerated this result tra nsmitted reference range : <=1.0. The reference r samantha was not used to int erpret this result as normal/abnormal . [facility] BudaDgjojssPGNUGMAHRF6981-65-11 09:29:00 Test Item Value Reference Range Interpretation Comments Neutrophils # (test code = Neutrophils 3.5 1.5-8.1 #) [place] [address]-07-19 09:29:00 Test Item Value Reference Range Interpretation Comments Lymphocytes # (test code = Lymphocytes 0.7 1.0-5.5 #) [place] [address]-07-19 09:29:00 Test Item Value Reference Range Interpretation Comments Monocytes # (test code 0.4 See_Comment [Aut omated message] The = Monocytes #) system which generated this result tra nsmitted reference range : <=0.8. The reference r samantha was not used to int erpret this result as normal/abnormal . [facility]TridatoPQIHOBEUHN0625-46-02 09:29:00 Test Item Value Reference Range Interpretation Comments Macrocyte (test code = 1+ *ABN*(12/16/21 Macrocyte) 4:29 AM) [facility] PasoXduorjpCDHPCRPBHV4373-54-67 09:29:00 Test Item Value Reference Range Interpretation Comments C-REACTIVE PROTEIN (test code = 19.0 C-REACTIVE PROTEIN) [facility]2022-07-19 09:29:00 Test Item Value Reference Range Interpretation Comments Glucose Lvl (test code = Glucose Lvl) 199 70-99 [place] 662952-07-19 09:29:00 Test Item Value Reference Range Interpretation Comments BUN (test code = BUN) 28 12-19 [place] 662952-07-19 09:29:00 Test Item Value Reference Range Interpretation Comments Creatinine Lvl (test code = Creatinine 4.84 0.50-1.40 Lvl) [facility]2022-07-19 09:29:00 Test Item Value Reference Range Interpretation Comments Sodium Lvl (test code = Sodium Lvl) 134 135-145 [facility]2022-07-19 09:29:00 Test Item Value Reference Range Interpretation Comments Potassium Lvl (test code = Potassium 4.3 3.5-5.1 Lvl) [facility]2022-07-19 09:29:00 Test Item Value Reference Range Interpretation Comments Chloride Lvl (test code = Chloride Lvl) 100 95-109 [place] 662952-07-19 09:29:00 Test Item Value Reference Range Interpretation Comments CO2 (test code = CO2) 28 24-32 [place] 662952-07-19 09:29:00 Test Item Value Reference Range Interpretation Comments Calcium Lvl (test code = Calcium Lvl) 9.4 8.5-10.5 [place] 662952-07-19 09:29:00 Test Item Value Reference Range Interpretation Comments Total Protein (test code = Total 6.6 6.4-8.4 Protein) [place] 662952-07-19 09:29:00 Test Item Value Reference Range Interpretation Comments Albumin Lvl (test code = Albumin Lvl) 3.0 3.5-5.0 [facility] [id number] 09:29:00 Test Item Value Reference Range Interpretation Comments ALT (test code = ALT) 92 See_Comment [Auto mated message] The system which ge nerated this result transmit swathi reference range : <=65. The reference range was not used to interpr et this result as deny l/abnormal. [facility] [id number] 09:29:00 Test Item Value Reference Range Interpretation Comments AST (test code = AST) 123 See_Comment [Auto mated message] The system which ge nerated this result transmit swathi reference range : <=37. The reference range was not used to interpr et this result as deny l/abnormal. [facility] [id number] 09:29:00 Test Item Value Reference Range Interpretation Comments Alk Phos (test code = Alk Phos) 272 39-136 [facility] [id number] 09:29:00 Test Item Value Reference Range Interpretation Comments Bili Total (test code = Bili Total) 0.9 0.2-1.3 [facility] [id number] 09:29:00 Test Item Value Reference Range Interpretation Comments AGAP (test code = AGAP) 10.3 10.0-20.0 [facility] [id number] 09:29:00 Test Item Value Reference Range Interpretation Comments B/C Ratio (test code = B/C Ratio) 6 1 6-25 [facility] [id number] 09:29:00 Test Item Value Reference Range Interpretation Comments Globulin (test code = Globulin) 3.6 2.7-4.2 [facility] [id number] 09:29:00 Test Item Value Reference Range Interpretation Comments A/G Ratio (test code = A/G Ratio) 0.8 1 0.7-1.6 [facility] [id number] 09:29:00 Test Item Value Reference Range Interpretation Comments eGFR (test code = eGFR) 12 [facility] [id number] 09:29:00 Test Item Value Reference Range Interpretation Comments Phosphorus (test code = Phosphorus) 4.3 2.5-4.5 [facility] PasoYidjnjiLBASFIFPWC0111-71-39 09:29:00 Test Item Value Reference Range Interpretation Comments WBC (test code = WBC) 4.7 3.7-10.4 [facility] BudaXwgujkgLUNOFQEYPX5854-68-70 09:29:00 Test Item Value Reference Range Interpretation Comments RBC (test code = RBC) 2.14 4.70-6.10 [facility] BudaSfjtlreMAWQGSPTEF2907-85-00 09:29:00 Test Item Value Reference Range Interpretation Comments Hgb (test code = Hgb) 7.6 14.0-18.0 [facility] BudaZcoahsqCBZHQYJNIR9627-16-98 09:29:00 Test Item Value Reference Range Interpretation Comments Hct (test code = Hct) 22.8 42.0-54.0 [facility] BudaOhrykfrZXOZZGAWHZ4295-32-41 09:29:00 Test Item Value Reference Range Interpretation Comments MCV (test code = MCV) 106.6 80.0-94.0 [facility] BudaFeiiyrxBBETNFCELT9029-12-24 09:29:00 Test Item Value Reference Range Interpretation Comments MCH (test code = MCH) 35.6 pg 27.0-31.0 [facility] BudaQdjfftmPLMARFLBGH7088-26-26 09:29:00 Test Item Value Reference Range Interpretation Comments MCHC (test code = MCHC) 33.4 32.0-36.0 [facility] BudaFoqdyssOBGLJQQAIH2440-49-25 09:29:00 Test Item Value Reference Range Interpretation Comments RDW (test code = RDW) 24.3 11.5-14.5 [facility] BudaXyjgfpvMZUOQLQAPD8552-21-95 09:29:00 Test Item Value Reference Range Interpretation Comments Platelet (test code = Platelet) 148 133-450 [facility] BudaCuduzvzKSAYEIFJZE9175-73-25 09:29:00 Test Item Value Reference Range Interpretation Comments MPV (test code = MPV) 8.1 7.4-10.4 [facility] BudaSctqbjtPEQCGTAODI9133-30-88 09:29:00 Test Item Value Reference Range Interpretation Comments D-Dimer (test code = D-Dimer) 3.63 [facility] BudaJqnteliHYWQICMFEW4459-51-28 09:29:00 Test Item Value Reference Range Interpretation Comments Segs (test code = Segs) 74.8 45.0-75.0 [facility] BudaCeopgiiAOPIHHPZGJ0653-83-74 09:29:00 Test Item Value Reference Range Interpretation Comments Lymphocytes (test code = Lymphocytes) 15.5 20.0-40.0 [facility] BudaPuzzmecYNPERHFJOV5678-48-95 09:29:00 Test Item Value Reference Range Interpretation Comments Monocytes (test code = Monocytes) 9.5 2.0-12.0 [facility] BudaCykwvovNICQKFNUQT4644-02-27 09:29:00 Test Item Value Reference Range Interpretation Comments Basophils (test code = 0.2 See_Comment [Aut omated message] The Basophils) system which ge nerated this result tra nsmitted reference range : <=1.0. The reference r samantha was not used to int erpret this result as normal/abnormal . [facility] BudaJhbavoxWWDHENAGYH3637-99-28 09:29:00 Test Item Value Reference Range Interpretation Comments Neutrophils # (test code = Neutrophils 3.5 1.5-8.1 #) [facility] BudaHvsovqnQEYPCGXMNR3125-81-74 09:29:00 Test Item Value Reference Range Interpretation Comments Lymphocytes # (test code = Lymphocytes 0.7 1.0-5.5 #) [facility] BudaMvupfaiSTKNEXMIVG2867-12-80 09:29:00 Test Item Value Reference Range Interpretation Comments Monocytes # (test code 0.4 See_Comment [Aut omated message] The = Monocytes #) system which generated this result tra nsmitted reference range : <=0.8. The reference r samantha was not used to int erpret this result as normal/abnormal . [facility] PasoZjkdwynPVPZYEJTHO3052-31-33 09:29:00 Test Item Value Reference Range Interpretation Comments Macrocyte (test code = 1+ *ABN*(12/16/21 Macrocyte) 4:29 AM) [facility] PasoVstafkcNFECBCSELB1219-77-70 09:29:00 Test Item Value Reference Range Interpretation Comments C-REACTIVE PROTEIN (test code = 19.0 C-REACTIVE PROTEIN) [facility] [id number] 09:29:00 Test Item Value Reference Range Interpretation Comments Glucose Lvl (test code = Glucose Lvl) 199 70-99 [facility] [id number] 09:29:00 Test Item Value Reference Range Interpretation Comments BUN (test code = BUN) 28 - [facility] [id number] 09:29:00 Test Item Value Reference Range Interpretation Comments Creatinine Lvl (test code = Creatinine 4.84 0.50-1.40 Lvl) [place] 662952-07-19 09:29:00 Test Item Value Reference Range Interpretation Comments Sodium Lvl (test code = Sodium Lvl) 134 135-145 [place] 662952-07-19 09:29:00 Test Item Value Reference Range Interpretation Comments Potassium Lvl (test code = Potassium 4.3 3.5-5.1 Lvl) [place] [address]-07-19 09:29:00 Test Item Value Reference Range Interpretation Comments Chloride Lvl (test code = Chloride Lvl) 100 95-109 [place] [address]-07-19 09:29:00 Test Item Value Reference Range Interpretation Comments CO2 (test code = CO2) 28 24-32 [place] [address]-07-19 09:29:00 Test Item Value Reference Range Interpretation Comments Calcium Lvl (test code = Calcium Lvl) 9.4 8.5-10.5 [place] 662952-07-19 09:29:00 Test Item Value Reference Range Interpretation Comments Total Protein (test code = Total 6.6 6.4-8.4 Protein) [place] 662952-07-19 09:29:00 Test Item Value Reference Range Interpretation Comments Albumin Lvl (test code = Albumin Lvl) 3.0 3.5-5.0 [place] 662952-07-19 09:29:00 Test Item Value Reference Range Interpretation Comments ALT (test code = ALT) 92 See_Comment [Auto mated message] The system which ge nerated this result transmit swathi reference range : <=65. The reference range was not used to interpr et this result as deny l/abnormal. [place] 662952-07-19 09:29:00 Test Item Value Reference Range Interpretation Comments AST (test code = AST) 123 See_Comment [Auto mated message] The system which ge nerated this result transmit swathi reference range : <=37. The reference range was not used to interpr et this result as deny l/abnormal. [place] [address]-07-19 09:29:00 Test Item Value Reference Range Interpretation Comments Alk Phos (test code = Alk Phos) 272 39-136 [place] 662952-07-19 09:29:00 Test Item Value Reference Range Interpretation Comments Bili Total (test code = Bili Total) 0.9 0.2-1.3 [facility]2022-07-19 09:29:00 Test Item Value Reference Range Interpretation Comments AGAP (test code = AGAP) 10.3 10.0-20.0 [facility]2022-07-19 09:29:00 Test Item Value Reference Range Interpretation Comments B/C Ratio (test code = B/C Ratio) 6 1 6-25 [place] 662952-07-19 09:29:00 Test Item Value Reference Range Interpretation Comments Globulin (test code = Globulin) 3.6 2.7-4.2 [place] 662952-07-19 09:29:00 Test Item Value Reference Range Interpretation Comments A/G Ratio (test code = A/G Ratio) 0.8 1 0.7-1.6 [place] 662952-07-19 09:29:00 Test Item Value Reference Range Interpretation Comments eGFR (test code = eGFR) 12 [facility]2022-07-19 09:29:00 Test Item Value Reference Range Interpretation Comments Phosphorus (test code = Phosphorus) 4.3 2.5-4.5 [facility] [id number] 09:29:00 Test Item Value Reference Range Interpretation Comments WBC (test code = WBC) 4.7 3.7-10.4 [facility] BudaYffehpcMJQYKOZXND9276-70-85 09:29:00 Test Item Value Reference Range Interpretation Comments RBC (test code = RBC) 2.14 4.70-6.10 [facility] BudaMuplkxxAVUZOJECNJ7366-19-09 09:29:00 Test Item Value Reference Range Interpretation Comments Hgb (test code = Hgb) 7.6 14.0-18.0 [place] 475022-07-19 09:29:00 Test Item Value Reference Range Interpretation Comments Hct (test code = Hct) 22.8 42.0-54.0 [place] 475022-07-19 09:29:00 Test Item Value Reference Range Interpretation Comments MCV (test code = MCV) 106.6 80.0-94.0 [place] 475022-07-19 09:29:00 Test Item Value Reference Range Interpretation Comments MCH (test code = MCH) 35.6 pg 27.0-31.0 [place] 475022-07-19 09:29:00 Test Item Value Reference Range Interpretation Comments MCHC (test code = MCHC) 33.4 32.0-36.0 [place] [address]-07-19 09:29:00 Test Item Value Reference Range Interpretation Comments RDW (test code = RDW) 24.3 11.5-14.5 [place] 475022-07-19 09:29:00 Test Item Value Reference Range Interpretation Comments Platelet (test code = Platelet) 148 133-450 [place] 475022-07-19 09:29:00 Test Item Value Reference Range Interpretation Comments MPV (test code = MPV) 8.1 7.4-10.4 [place] [address]-07-19 09:29:00 Test Item Value Reference Range Interpretation Comments D-Dimer (test code = D-Dimer) 3.63 [place] 475022-07-19 09:29:00 Test Item Value Reference Range Interpretation Comments Segs (test code = Segs) 74.8 45.0-75.0 [place] 475022-07-19 09:29:00 Test Item Value Reference Range Interpretation Comments Lymphocytes (test code = Lymphocytes) 15.5 20.0-40.0 [place] 475022-07-19 09:29:00 Test Item Value Reference Range Interpretation Comments Monocytes (test code = Monocytes) 9.5 2.0-12.0 [place] 475022-07-19 09:29:00 Test Item Value Reference Range Interpretation Comments Basophils (test code = 0.2 See_Comment [Aut omated message] The Basophils) system which ge nerated this result tra nsmitted reference range : <=1.0. The reference r samantha was not used to int erpret this result as normal/abnormal . [place] 475022-07-19 09:29:00 Test Item Value Reference Range Interpretation Comments Neutrophils # (test code = Neutrophils 3.5 1.5-8.1 #) [place] 475022-07-19 09:29:00 Test Item Value Reference Range Interpretation Comments Lymphocytes # (test code = Lymphocytes 0.7 1.0-5.5 #) [place] 475022-07-19 09:29:00 Test Item Value Reference Range Interpretation Comments Monocytes # (test code 0.4 See_Comment [Aut omated message] The = Monocytes #) system which generated this result tra nsmitted reference range : <=0.8. The reference r samantha was not used to int erpret this result as normal/abnormal . [facility]QQOA[facility]OW[facility]XQ[facility] 09:29:00 Test Item Value Reference Range Interpretation Comments Macrocyte (test code = 1+ *ABN*(12/16/21 Macrocyte) 4:29 AM) [facility]BtbabzsEOWUXXUXNJ6150-33-42 09:29:00 Test Item Value Reference Range Interpretation Comments C-REACTIVE PROTEIN (test code = 19.0 C-REACTIVE PROTEIN) [facility]2022-07-19 09:29:00 Test Item Value Reference Range Interpretation Comments Glucose Lvl (test code = Glucose Lvl) 199 70-99 [facility]2022-07-19 09:29:00 Test Item Value Reference Range Interpretation Comments BUN (test code = BUN) 28 - [place] 662952-07-19 09:29:00 Test Item Value Reference Range Interpretation Comments Creatinine Lvl (test code = Creatinine 4.84 0.50-1.40 Lvl) [place] 662952-07-19 09:29:00 Test Item Value Reference Range Interpretation Comments Sodium Lvl (test code = Sodium Lvl) 134 135-145 [facility]2022-07-19 09:29:00 Test Item Value Reference Range Interpretation Comments Potassium Lvl (test code = Potassium 4.3 3.5-5.1 Lvl) [place] 662952-07-19 09:29:00 Test Item Value Reference Range Interpretation Comments Chloride Lvl (test code = Chloride Lvl) 100 95-109 [place] 662952-07-19 09:29:00 Test Item Value Reference Range Interpretation Comments CO2 (test code = CO2) 28 24-32 [place] 662952-07-19 09:29:00 Test Item Value Reference Range Interpretation Comments Calcium Lvl (test code = Calcium Lvl) 9.4 8.5-10.5 [place] 662952-07-19 09:29:00 Test Item Value Reference Range Interpretation Comments Total Protein (test code = Total 6.6 6.4-8.4 Protein) [facility] CorporationKATIE [facility] [id number] 09:29:00 Test Item Value Reference Range Interpretation Comments Albumin Lvl (test code = Albumin Lvl) 3.0 3.5-5.0 [facility] HospitalA[facility]i [facility] Systems [id number] 09:29:00 Test Item Value Reference Range Interpretation Comments ALT (test code = ALT) 92 See_Comment [Auto mated message] The system which ge nerated this result transmit swathi reference range : <=65. The reference range was not used to interpr et this result as deny l/abnormal. [facility] [id number] 09:29:00 Test Item Value Reference Range Interpretation Comments AST (test code = AST) 123 See_Comment [Auto mated message] The system which ge nerated this result transmit swathi reference range : <=37. The reference range was not used to interpr et this result as deny l/abnormal. [facility] [id number] 09:29:00 Test Item Value Reference Range Interpretation Comments Alk Phos (test code = Alk Phos) 272 39-136 [facility] [id number] 09:29:00 Test Item Value Reference Range Interpretation Comments Bili Total (test code = Bili Total) 0.9 0.2-1.3 [facility] [id number] 09:29:00 Test Item Value Reference Range Interpretation Comments AGAP (test code = AGAP) 10.3 10.0-20.0 [facility] [id number] 09:29:00 Test Item Value Reference Range Interpretation Comments B/C Ratio (test code = B/C Ratio) 6 1 6-25 [facility] [id number] 09:29:00 Test Item Value Reference Range Interpretation Comments Globulin (test code = Globulin) 3.6 2.7-4.2 [facility] [id number] 09:29:00 Test Item Value Reference Range Interpretation Comments A/G Ratio (test code = A/G Ratio) 0.8 1 0.7-1.6 [facility] [id number] 09:29:00 Test Item Value Reference Range Interpretation Comments eGFR (test code = eGFR) 12 [facility] [id number] 09:29:00 Test Item Value Reference Range Interpretation Comments Phosphorus (test code = Phosphorus) 4.3 2.5-4.5 [facility]udaEvrstztUIIZFOYLSK9482-03-28 09:29:00 Test Item Value Reference Range Interpretation Comments WBC (test code = WBC) 4.7 3.7-10.4 [facility] BudaAqcwvcwGYKXNIUZZV1592-41-02 09:29:00 Test Item Value Reference Range Interpretation Comments RBC (test code = RBC) 2.14 4.70-6.10 [facility] BudaTviumqcVRGIQBOOHI9854-16-64 09:29:00 Test Item Value Reference Range Interpretation Comments Hgb (test code = Hgb) 7.6 14.0-18.0 [facility] BudaSdxxdtzRWAUOKNTTZ9565-51-15 09:29:00 Test Item Value Reference Range Interpretation Comments Hct (test code = Hct) 22.8 42.0-54.0 [place] 475022-07-19 09:29:00 Test Item Value Reference Range Interpretation Comments MCV (test code = MCV) 106.6 80.0-94.0 [facility] BudaWdiyhhcZHJAIQVHCS9509-58-54 09:29:00 Test Item Value Reference Range Interpretation Comments MCH (test code = MCH) 35.6 pg 27.0-31.0 [facility] BudaIxpnzjaUIAQTNKHPV4992-15-39 09:29:00 Test Item Value Reference Range Interpretation Comments MCHC (test code = MCHC) 33.4 32.0-36.0 [facility] BudaHvkdguzFNNUZUIUWQ0410-19-49 09:29:00 Test Item Value Reference Range Interpretation Comments RDW (test code = RDW) 24.3 11.5-14.5 [facility] BudaEybznzaKJUDHSVWVJ3044-82-09 09:29:00 Test Item Value Reference Range Interpretation Comments Platelet (test code = Platelet) 148 133-450 [facility] BudaAhrkztsUELNHMRNOU3549-49-28 09:29:00 Test Item Value Reference Range Interpretation Comments MPV (test code = MPV) 8.1 7.4-10.4 [facility] BudaLhgjhwoYGXVRELZWB2986-39-00 09:29:00 Test Item Value Reference Range Interpretation Comments D-Dimer (test code = D-Dimer) 3.63 [facility] BudaImfevaqVRENIQIYOW7726-91-66 09:29:00 Test Item Value Reference Range Interpretation Comments Segs (test code = Segs) 74.8 45.0-75.0 [facility] BudaVstmffcWAFYARBQDA3414-58-63 09:29:00 Test Item Value Reference Range Interpretation Comments Lymphocytes (test code = Lymphocytes) 15.5 20.0-40.0 [facility] BudaGigndxeYKJGWSYTYA4591-31-39 09:29:00 Test Item Value Reference Range Interpretation Comments Monocytes (test code = Monocytes) 9.5 2.0-12.0 [facility] BudaRhepmmlSPFKLOIAYD9641-82-20 09:29:00 Test Item Value Reference Range Interpretation Comments Basophils (test code = 0.2 See_Comment [Aut omated message] The Basophils) system which ge nerated this result tra nsmitted reference range : <=1.0. The reference r samantha was not used to int erpret this result as normal/abnormal . [facility] PasoLttmhqjSXENAOCQWH2848-14-42 09:29:00 Test Item Value Reference Range Interpretation Comments Neutrophils # (test code = Neutrophils 3.5 1.5-8.1 #) [facility] BudaRkhwaizAZPLYZDWVH8074-87-37 09:29:00 Test Item Value Reference Range Interpretation Comments Lymphocytes # (test code = Lymphocytes 0.7 1.0-5.5 #) [facility] BudaMwjkakgBMQDJFGEMC7824-53-01 09:29:00 Test Item Value Reference Range Interpretation Comments Monocytes # (test code 0.4 See_Comment [Aut omated message] The = Monocytes #) system which generated this result tra nsmitted reference range : <=0.8. The reference r samantha was not used to int erpret this result as normal/abnormal . [facility] PasoGjqkxwqUIPEILKRUZ1194-63-23 09:29:00 Test Item Value Reference Range Interpretation Comments Macrocyte (test code = 1+ *ABN*(12/16/21 Macrocyte) 4:29 AM) [facility] HospitalMzlsrycUYOJCANWPI1477-46-75 09:29:00 Test Item Value Reference Range Interpretation Comments C-REACTIVE PROTEIN (test code = 19.0 C-REACTIVE PROTEIN) [facility] HospitalA[facility] Systems [id number] 09:29:00 Test Item Value Reference Range Interpretation Comments Glucose Lvl (test code = Glucose Lvl) 199 70-99 [facility] [id number] 09:29:00 Test Item Value Reference Range Interpretation Comments BUN (test code = BUN) 28 12-19 [facility] HospitalannKATIE [facility]LE [id number] 09:29:00 Test Item Value Reference Range Interpretation Comments Creatinine Lvl (test code = Creatinine 4.84 0.50-1.40 Lvl) [address]07-19 09:29:00 Test Item Value Reference Range Interpretation Comments Sodium Lvl (test code = Sodium Lvl) 134 135-145 [place] [address]-07-19 09:29:00 Test Item Value Reference Range Interpretation Comments Potassium Lvl (test code = Potassium 4.3 3.5-5.1 Lvl) [place] [address]-07-19 09:29:00 Test Item Value Reference Range Interpretation Comments Chloride Lvl (test code = Chloride Lvl) 100 95-109 [address]07-19 09:29:00 Test Item Value Reference Range Interpretation Comments CO2 (test code = CO2) 28 24-32 [address]07-19 09:29:00 Test Item Value Reference Range Interpretation Comments Calcium Lvl (test code = Calcium Lvl) 9.4 8.5-10.5 [place] 662952-07-19 09:29:00 Test Item Value Reference Range Interpretation Comments Total Protein (test code = Total 6.6 6.4-8.4 Protein) [place] [address]-07-19 09:29:00 Test Item Value Reference Range Interpretation Comments Albumin Lvl (test code = Albumin Lvl) 3.0 3.5-5.0 [place] [address]-07-19 09:29:00 Test Item Value Reference Range Interpretation Comments ALT (test code = ALT) 92 See_Comment [Auto mated message] The system which ge nerated this result transmit swathi reference range : <=65. The reference range was not used to interpr et this result as deny l/abnormal. [facility] PasoSoloingles.[facility] [id number] 09:29:00 Test Item Value Reference Range Interpretation Comments AST (test code = AST) 123 See_Comment [Auto mated message] The system which ge nerated this result transmit swathi reference range : <=37. The reference range was not used to interpr et this result as deny l/abnormal. [facility] PasoSoloingles.[facility] [id number] 09:29:00 Test Item Value Reference Range Interpretation Comments Alk Phos (test code = Alk Phos) 272 39-136 [facility]2022-07-19 09:29:00 Test Item Value Reference Range Interpretation Comments Bili Total (test code = Bili Total) 0.9 0.2-1.3 [place] 662952-07-19 09:29:00 Test Item Value Reference Range Interpretation Comments AGAP (test code = AGAP) 10.3 10.0-20.0 [facility]2022-07-19 09:29:00 Test Item Value Reference Range Interpretation Comments B/C Ratio (test code = B/C Ratio) 6 1 6-25 [place] 662952-07-19 09:29:00 Test Item Value Reference Range Interpretation Comments Globulin (test code = Globulin) 3.6 2.7-4.2 [facility]2022-07-19 09:29:00 Test Item Value Reference Range Interpretation Comments A/G Ratio (test code = A/G Ratio) 0.8 1 0.7-1.6 [place] 662952-07-19 09:29:00 Test Item Value Reference Range Interpretation Comments eGFR (test code = eGFR) 12 [facility]2022-07-19 09:29:00 Test Item Value Reference Range Interpretation Comments Phosphorus (test code = Phosphorus) 4.3 2.5-4.5 [facility] BudaTljgyfaHIHHFKFQAB6354-16-90 09:29:00 Test Item Value Reference Range Interpretation Comments WBC (test code = WBC) 4.7 3.7-10.4 [place] 475022-07-19 09:29:00 Test Item Value Reference Range Interpretation Comments RBC (test code = RBC) 2.14 4.70-6.10 [place] 475022-07-19 09:29:00 Test Item Value Reference Range Interpretation Comments Hgb (test code = Hgb) 7.6 14.0-18.0 [place] 475022-07-19 09:29:00 Test Item Value Reference Range Interpretation Comments Hct (test code = Hct) 22.8 42.0-54.0 [place] 475022-07-19 09:29:00 Test Item Value Reference Range Interpretation Comments MCV (test code = MCV) 106.6 80.0-94.0 [place] 475022-07-19 09:29:00 Test Item Value Reference Range Interpretation Comments MCH (test code = MCH) 35.6 pg 27.0-31.0 [place] 475022-07-19 09:29:00 Test Item Value Reference Range Interpretation Comments MCHC (test code = MCHC) 33.4 32.0-36.0 [facility] BudaEvmyrghKDKUWWXSAR7026-24-10 09:29:00 Test Item Value Reference Range Interpretation Comments RDW (test code = RDW) 24.3 11.5-14.5 [place] 475022-07-19 09:29:00 Test Item Value Reference Range Interpretation Comments Platelet (test code = Platelet) 148 133-450 [place] 475022-07-19 09:29:00 Test Item Value Reference Range Interpretation Comments MPV (test code = MPV) 8.1 7.4-10.4 [place] 475022-07-19 09:29:00 Test Item Value Reference Range Interpretation Comments D-Dimer (test code = D-Dimer) 3.63 [place] 475022-07-19 09:29:00 Test Item Value Reference Range Interpretation Comments Segs (test code = Segs) 74.8 45.0-75.0 [facility] BudaIigsxstYOTOOPHLQD9218-84-81 09:29:00 Test Item Value Reference Range Interpretation Comments Lymphocytes (test code = Lymphocytes) 15.5 20.0-40.0 [place] 475022-07-19 09:29:00 Test Item Value Reference Range Interpretation Comments Monocytes (test code = Monocytes) 9.5 2.0-12.0 [place] [address]-07-19 09:29:00 Test Item Value Reference Range Interpretation Comments Basophils (test code = 0.2 See_Comment [Aut omated message] The Basophils) system which ge nerated this result tra nsmitted reference range : <=1.0. The reference r samantha was not used to int erpret this result as normal/abnormal . [facility] BudaBavpvkxMLYJVKWLJT4799-69-77 09:29:00 Test Item Value Reference Range Interpretation Comments Neutrophils # (test code = Neutrophils 3.5 1.5-8.1 #) [place] 475022-07-19 09:29:00 Test Item Value Reference Range Interpretation Comments Lymphocytes # (test code = Lymphocytes 0.7 1.0-5.5 #) [facility] BudaEwozvxiBHZGZFGVBK8956-69-94 09:29:00 Test Item Value Reference Range Interpretation Comments Monocytes # (test code 0.4 See_Comment [Aut omated message] The = Monocytes #) system which generated this result tra nsmitted reference range : <=0.8. The reference r samantha was not used to int erpret this result as normal/abnormal . [facility] BudaWsrspllGGWTLIAMXP8782-83-81 09:29:00 Test Item Value Reference Range Interpretation Comments Macrocyte (test code = 1+ *ABN*(12/16/21 Macrocyte) 4:29 AM) [facility]TtkrjgyTDZQGULAHK3981-16-91 09:29:00 Test Item Value Reference Range Interpretation Comments C-REACTIVE PROTEIN (test code = 19.0 C-REACTIVE PROTEIN) [facility]anoZnypwcgYAALTTSDND3722-21-70 02:28:00 Test Item Value Reference Range Interpretation Comments Hep Bs Ag (test code Negative *NA*(12/15/21 = Hep Bs Ag) 9:28 PM) [facility]anoYelsemjYWQUOSQOIR4892-66-22 02:28:00 Test Item Value Reference Range Interpretation Comments Hep Bs Ag (test code Negative *NA*(12/15/21 = Hep Bs Ag) 9:28 PM) [facility]anoBewrtxfIVLANHNVGN2707-66-26 02:28:00 Test Item Value Reference Range Interpretation Comments Hep Bs Ag (test code Negative *NA*(12/15/21 = Hep Bs Ag) 9:28 PM) [facility]anoOimkmgsNUNBJPEDHA3966-26-56 02:28:00 Test Item Value Reference Range Interpretation Comments Hep Bs Ag (test code Negative *NA*(12/15/21 = Hep Bs Ag) 9:28 PM) [facility]anoBwljjlhMDKFSLQUNP7311-71-80 02:28:00 Test Item Value Reference Range Interpretation Comments Hep Bs Ag (test code Negative *NA*(12/15/21 = Hep Bs Ag) 9:28 PM) [facility]anoHlhuksoAPEPKTDCBM0983-79-71 02:28:00 Test Item Value Reference Range Interpretation Comments Hep Bs Ag (test code Negative *NA*(12/15/21 = Hep Bs Ag) 9:28 PM) [facility]anoYidpsmeHACGOGJUGO0092-27-72 02:28:00 Test Item Value Reference Range Interpretation Comments Hep Bs Ag (test code Negative *NA*(12/15/21 = Hep Bs Ag) 9:28 PM) [facility] AitcyilGTCMGFSINU2402-22-03 02:28:00 Test Item Value Reference Range Interpretation Comments Hep Bs Ag (test code Negative *NA*(12/15/21 = Hep Bs Ag) 9:28 PM) [facility] DjqbkwmATJZNBFZZP8465-06-10 02:28:00 Test Item Value Reference Range Interpretation Comments Hep Bs Ag (test code Negative *NA*(12/15/21 = Hep Bs Ag) 9:28 PM) [facility] Pkmwdp3768-03-87 17:16:00 Test Item Value Reference Range Interpretation Comments Gram Stain Report Gram Stain Performed By: (test code = [facility] [place] St[facility] Report) [facility] Respiratory w/Gram Gbhqg4372-99-62 17:16:00 Test Item Value Reference Range Interpretation Comments Culture: Respiratory Moderate Yeast Normal w/Gram Stain (test code Respiratory Lyndsay = Culture: Respiratory Isolated w/Gram Stain) [facility] [id number] 17:16:00 Test Item Value Reference Range Interpretation Comments Gram Stain Report Gram Stain Performed By: (test code = [facility] [place] Stain Report) [facility]: Respiratory w/Gram [id number] 17:16:00 Test Item Value Reference Range Interpretation Comments Culture: Respiratory Moderate Yeast Normal w/Gram Stain (test code Respiratory Lyndsay = Culture: Respiratory Isolated w/Gram Stain) [facility] Kiofzo0417-47-46 17:16:00 Test Item Value Reference Range Interpretation Comments Gram Stain Report Gram Stain Performed By: (test code = [facility] [place] Stain Report) [facility]annCulture: Respiratory w/Gram Sfrut1219-50-49 17:16:00 Test Item Value Reference Range Interpretation Comments Culture: Respiratory Moderate Yeast Normal w/Gram Stain (test code Respiratory Lyndsay = Culture: Respiratory Isolated w/Gram Stain) [facility] Koqkny2998-43-91 17:16:00 Test Item Value Reference Range Interpretation Comments Gram Stain Report Gram Stain Performed By: (test code = [facility] [place] Stain Report) [facility]annCulture: Respiratory w/Gram [id number] 17:16:00 Test Item Value Reference Range Interpretation Comments Culture: Respiratory Moderate Yeast Normal w/Gram Stain (test code Respiratory Lyndsay = Culture: Respiratory Isolated w/Gram Stain) [facility] Kzavel3289-87-77 17:16:00 Test Item Value Reference Range Interpretation Comments Gram Stain Report Gram Stain Performed By: (test code = [facility] [place] Stain Report) [facility]annCulture: Respiratory w/Gram Qehie2212-46-76 17:16:00 Test Item Value Reference Range Interpretation Comments Culture: Respiratory Moderate Yeast Normal w/Gram Stain (test code Respiratory Lyndsay = Culture: Respiratory Isolated w/Gram Stain) [facility] Fleydp2032-76-12 17:16:00 Test Item Value Reference Range Interpretation Comments Gram Stain Report Gram Stain Performed By: (test code = [facility] Stain Report) [facility]annCulture: Respiratory w/Gram Fgdls1053-34-15 17:16:00 Test Item Value Reference Range Interpretation Comments Culture: Respiratory Moderate Yeast Normal w/Gram Stain (test code Respiratory Lyndsay = Culture: Respiratory Isolated w/Gram Stain) [facility] Zgnkle2429-39-10 17:16:00 Test Item Value Reference Range Interpretation Comments Gram Stain Report Gram Stain Performed By: (test code = [facility] [place] Stain Report) [facility] SystemCulture: Respiratory w/Gram [id number] 17:16:00 Test Item Value Reference Range Interpretation Comments Culture: Respiratory Moderate Yeast Normal w/Gram Stain (test code Respiratory Lyndsay = Culture: Respiratory Isolated w/Gram Stain) [facility] [id number] 17:16:00 Test Item Value Reference Range Interpretation Comments Gram Stain Report Gram Stain Performed By: (test code = [facility] [place] St[facility] Report) [facility]annCulture: Respiratory w/Gram [id number] 17:16:00 Test Item Value Reference Range Interpretation Comments Culture: Respiratory Moderate Yeast Normal w/Gram Stain (test code Respiratory Lyndsay = Culture: Respiratory Isolated w/Gram Stain) [facility] [id number] 17:16:00 Test Item Value Reference Range Interpretation Comments Gram Stain Report Gram Stain Performed By: (test code = [facility] Stain Report) [facility] CenterannCulture: Respiratory w/Gram [id number] 17:16:00 Test Item Value Reference Range Interpretation Comments Culture: Respiratory Moderate Yeast Normal w/Gram Stain (test code Respiratory Lyndsay = Culture: Respiratory Isolated w/Gram Stain) [place] 662952-07-18 09:04:00 Test Item Value Reference Range Interpretation Comments Glucose Lvl (test code = Glucose Lvl) 59 70-99 [place] 662952-07-18 09:04:00 Test Item Value Reference Range Interpretation Comments BUN (test code = BUN) 41 7-22 [place] 662952-07-18 09:04:00 Test Item Value Reference Range Interpretation Comments Creatinine Lvl (test code = Creatinine 7.00 0.50-1.40 Lvl) [place] 662952-07-18 09:04:00 Test Item Value Reference Range Interpretation Comments Sodium Lvl (test code = Sodium Lvl) 134 135-145 [place] 662952-07-18 09:04:00 Test Item Value Reference Range Interpretation Comments Potassium Lvl (test code = Potassium 4.0 3.5-5.1 Lvl) [place] 662952-07-18 09:04:00 Test Item Value Reference Range Interpretation Comments Chloride Lvl (test code = Chloride Lvl) 102 95-109 [place] 662952-07-18 09:04:00 Test Item Value Reference Range Interpretation Comments CO2 (test code = CO2) 25 24-32 [place] 662952-07-18 09:04:00 Test Item Value Reference Range Interpretation Comments Calcium Lvl (test code = Calcium Lvl) 9.1 8.5-10.5 [place] 662952-07-18 09:04:00 Test Item Value Reference Range Interpretation Comments Total Protein (test code = Total 6.2 6.4-8.4 Protein) [place] 662952-07-18 09:04:00 Test Item Value Reference Range Interpretation Comments Albumin Lvl (test code = Albumin Lvl) 2.8 3.5-5.0 [place] 662952-07-18 09:04:00 Test Item Value Reference Range Interpretation Comments ALT (test code = ALT) 78 See_Comment [Auto mated message] The system which ge nerated this result transmit swathi reference range : <=65. The reference range was not used to interpr et this result as deny l/abnormal. [place] 662952-07-18 09:04:00 Test Item Value Reference Range Interpretation Comments AST (test code = AST) 117 See_Comment [Auto mated message] The system which ge nerated this result transmit swathi reference range : <=37. The reference range was not used to interpr et this result as deny l/abnormal. [place] 662952-07-18 09:04:00 Test Item Value Reference Range Interpretation Comments Alk Phos (test code = Alk Phos) 251 39-136 [place] 662952-07-18 09:04:00 Test Item Value Reference Range Interpretation Comments Bili Total (test code = Bili Total) 0.9 0.2-1.3 [place] 662952-07-18 09:04:00 Test Item Value Reference Range Interpretation Comments AGAP (test code = AGAP) 11.0 10.0-20.0 [place] 662952-07-18 09:04:00 Test Item Value Reference Range Interpretation Comments B/C Ratio (test code = B/C Ratio) 6 1 6-25 [place] 662952-07-18 09:04:00 Test Item Value Reference Range Interpretation Comments Globulin (test code = Globulin) 3.4 2.7-4.2 [place] 662952-07-18 09:04:00 Test Item Value Reference Range Interpretation Comments A/G Ratio (test code = A/G Ratio) 0.8 1 0.7-1.6 [place] 662952-07-18 09:04:00 Test Item Value Reference Range Interpretation Comments eGFR (test code = eGFR) 8 [place] [address]-07-18 09:04:00 Test Item Value Reference Range Interpretation Comments D-Dimer (test code = D-Dimer) 3.03 [place] 475022-07-18 09:04:00 Test Item Value Reference Range Interpretation Comments WBC (test code = WBC) 3.6 3.7-10.4 [place] [address]-07-18 09:04:00 Test Item Value Reference Range Interpretation Comments RBC (test code = RBC) 2.07 4.70-6.10 [place] [address]-07-18 09:04:00 Test Item Value Reference Range Interpretation Comments Hgb (test code = Hgb) 7.5 14.0-18.0 [place] 475022-07-18 09:04:00 Test Item Value Reference Range Interpretation Comments Hct (test code = Hct) 22.0 42.0-54.0 [place] 475022-07-18 09:04:00 Test Item Value Reference Range Interpretation Comments MCV (test code = MCV) 106.3 80.0-94.0 [place] 475022-07-18 09:04:00 Test Item Value Reference Range Interpretation Comments MCH (test code = MCH) 36.1 pg 27.0-31.0 [place] 475022-07-18 09:04:00 Test Item Value Reference Range Interpretation Comments MCHC (test code = MCHC) 33.9 32.0-36.0 [place] 475022-07-18 09:04:00 Test Item Value Reference Range Interpretation Comments RDW (test code = RDW) 23.9 11.5-14.5 [place] 475022-07-18 09:04:00 Test Item Value Reference Range Interpretation Comments Platelet (test code = Platelet) 133 133-450 [facility]udaYuzsjkgPGVCUKFQAF3438-73-63 09:04:00 Test Item Value Reference Range Interpretation Comments MPV (test code = MPV) 8.1 7.4-10.4 [place] 475022-07-18 09:04:00 Test Item Value Reference Range Interpretation Comments Segs (test code = Segs) 60.8 45.0-75.0 [facility] BudaHfjnloxJQEKIYOAWH6595-15-38 09:04:00 Test Item Value Reference Range Interpretation Comments Lymphocytes (test code = Lymphocytes) 22.3 20.0-40.0 [place] 475022-07-18 09:04:00 Test Item Value Reference Range Interpretation Comments Monocytes (test code = Monocytes) 13.9 2.0-12.0 [place] 475022-07-18 09:04:00 Test Item Value Reference Range Interpretation Comments Eosinophils (test code = 2.6 See_Comment [A utomated message] The Eosinophils) system which ge nerated this result tra nsmitted reference range : <=4.0. The reference r samantha was not used to int erpret this result as normal/abnormal . [facility] PasoCxlqddzYKEFRMAAID0174-63-48 09:04:00 Test Item Value Reference Range Interpretation Comments Basophils (test code = 0.4 See_Comment [Aut omated message] The Basophils) system which ge nerated this result tra nsmitted reference range : <=1.0. The reference r samantha was not used to int erpret this result as normal/abnormal . [facility]upbLXNUENNOKL3530-63-38 09:04:00 Test Item Value Reference Range Interpretation Comments Neutrophils # (test code = Neutrophils 2.2 1.5-8.1 #) [facility] BudaLokxbykPDHXBHEEKL5166-98-00 09:04:00 Test Item Value Reference Range Interpretation Comments Lymphocytes # (test code = Lymphocytes 0.8 1.0-5.5 #) [facility] BudaThdkowsVRXVBUFVPY0941-36-71 09:04:00 Test Item Value Reference Range Interpretation Comments Monocytes # (test code 0.5 See_Comment [Aut omated message] The = Monocytes #) system which generated this result tra nsmitted reference range : <=0.8. The reference r samantha was not used to int erpret this result as normal/abnormal . [facility] PasoMhcwuphIQITJARJDO9937-55-51 09:04:00 Test Item Value Reference Range Interpretation Comments Eosinophils # (test code 0.1 See_Comment [A utomated message] The = Eosinophils #) system whic h generated this result tra nsmitted reference range : <=0.5. The reference r samantha was not used to int erpret this result as normal/abnormal . [facility] PasoFkfwizmQJZGGGJUVN7846-98-06 09:04:00 Test Item Value Reference Range Interpretation Comments Macrocyte (test code = 1+ *ABN*(12/15/21 Macrocyte) 4:04 AM) [facility] PasoGveforxQJZSMOWETS6401-89-16 09:04:00 Test Item Value Reference Range Interpretation Comments C-REACTIVE PROTEIN (test code = 25.1 C-REACTIVE PROTEIN) [facility] PasoLgzbpecQHACBAIQAR6603-88-96 09:04:00 Test Item Value Reference Range Interpretation Comments Vanco Lvl (test code = Vanco Lvl) 15.2 [facility] PasoCHEM [id number] 09:04:00 Test Item Value Reference Range Interpretation Comments Glucose Lvl (test code = Glucose Lvl) 59 70-99 [place] 662952-07-18 09:04:00 Test Item Value Reference Range Interpretation Comments BUN (test code = BUN) 41 7-22 [place] 662952-07-18 09:04:00 Test Item Value Reference Range Interpretation Comments Creatinine Lvl (test code = Creatinine 7.00 0.50-1.40 Lvl) [place] 662952-07-18 09:04:00 Test Item Value Reference Range Interpretation Comments Sodium Lvl (test code = Sodium Lvl) 134 135-145 [place] [address]-07-18 09:04:00 Test Item Value Reference Range Interpretation Comments Potassium Lvl (test code = Potassium 4.0 3.5-5.1 Lvl) [place] 662952-07-18 09:04:00 Test Item Value Reference Range Interpretation Comments Chloride Lvl (test code = Chloride Lvl) 102 95-109 [place] 662952-07-18 09:04:00 Test Item Value Reference Range Interpretation Comments CO2 (test code = CO2) 25 24-32 [place] 662952-07-18 09:04:00 Test Item Value Reference Range Interpretation Comments Calcium Lvl (test code = Calcium Lvl) 9.1 8.5-10.5 [place] 662952-07-18 09:04:00 Test Item Value Reference Range Interpretation Comments Total Protein (test code = Total 6.2 6.4-8.4 Protein) [place] 662952-07-18 09:04:00 Test Item Value Reference Range Interpretation Comments Albumin Lvl (test code = Albumin Lvl) 2.8 3.5-5.0 [place] [address]-07-18 09:04:00 Test Item Value Reference Range Interpretation Comments ALT (test code = ALT) 78 See_Comment [Auto mated message] The system which ge nerated this result transmit swathi reference range : <=65. The reference range was not used to interpr et this result as deny l/abnormal. [place] 662952-07-18 09:04:00 Test Item Value Reference Range Interpretation Comments AST (test code = AST) 117 See_Comment [Auto mated message] The system which ge nerated this result transmit swathi reference range : <=37. The reference range was not used to interpr et this result as deny l/abnormal. [facility] [id number] 09:04:00 Test Item Value Reference Range Interpretation Comments Alk Phos (test code = Alk Phos) 251 39-136 [facility] [id number] 09:04:00 Test Item Value Reference Range Interpretation Comments Bili Total (test code = Bili Total) 0.9 0.2-1.3 [place] 662952-07-18 09:04:00 Test Item Value Reference Range Interpretation Comments AGAP (test code = AGAP) 11.0 10.0-20.0 [facility] [id number] 09:04:00 Test Item Value Reference Range Interpretation Comments B/C Ratio (test code = B/C Ratio) 6 1 6-25 [facility] HospitalSoftware Spectrum CorporationKATIE V[place]LE [address]TCOXE8787-60-31 09:04:00 Test Item Value Reference Range Interpretation Comments Globulin (test code = Globulin) 3.4 2.7-4.2 [facility] [id number] 09:04:00 Test Item Value Reference Range Interpretation Comments A/G Ratio (test code = A/G Ratio) 0.8 1 0.7-1.6 [facility] [id number] 09:04:00 Test Item Value Reference Range Interpretation Comments eGFR (test code = eGFR) 8 [place] 475022-07-18 09:04:00 Test Item Value Reference Range Interpretation Comments D-Dimer (test code = D-Dimer) 3.03 [place] 475022-07-18 09:04:00 Test Item Value Reference Range Interpretation Comments WBC (test code = WBC) 3.6 3.7-10.4 [place] 475022-07-18 09:04:00 Test Item Value Reference Range Interpretation Comments RBC (test code = RBC) 2.07 4.70-6.10 [place] [address]-07-18 09:04:00 Test Item Value Reference Range Interpretation Comments Hgb (test code = Hgb) 7.5 14.0-18.0 [place] [address]-07-18 09:04:00 Test Item Value Reference Range Interpretation Comments Hct (test code = Hct) 22.0 42.0-54.0 [place] 475022-07-18 09:04:00 Test Item Value Reference Range Interpretation Comments MCV (test code = MCV) 106.3 80.0-94.0 [place] 475022-07-18 09:04:00 Test Item Value Reference Range Interpretation Comments MCH (test code = MCH) 36.1 pg 27.0-31.0 [place] 475022-07-18 09:04:00 Test Item Value Reference Range Interpretation Comments MCHC (test code = MCHC) 33.9 32.0-36.0 [place] 475022-07-18 09:04:00 Test Item Value Reference Range Interpretation Comments RDW (test code = RDW) 23.9 11.5-14.5 [place] 475022-07-18 09:04:00 Test Item Value Reference Range Interpretation Comments Platelet (test code = Platelet) 133 133-450 [facility] BudaOncqvakIWFCBLVRNJ7613-00-36 09:04:00 Test Item Value Reference Range Interpretation Comments MPV (test code = MPV) 8.1 7.4-10.4 [place] 475022-07-18 09:04:00 Test Item Value Reference Range Interpretation Comments Segs (test code = Segs) 60.8 45.0-75.0 [place] 475022-07-18 09:04:00 Test Item Value Reference Range Interpretation Comments Lymphocytes (test code = Lymphocytes) 22.3 20.0-40.0 [place] 475022-07-18 09:04:00 Test Item Value Reference Range Interpretation Comments Monocytes (test code = Monocytes) 13.9 2.0-12.0 [place] 475022-07-18 09:04:00 Test Item Value Reference Range Interpretation Comments Eosinophils (test code = 2.6 See_Comment [A utomated message] The Eosinophils) system which ge nerated this result tra nsmitted reference range : <=4.0. The reference r samantha was not used to int erpret this result as normal/abnormal . [place] 475022-07-18 09:04:00 Test Item Value Reference Range Interpretation Comments Basophils (test code = 0.4 See_Comment [Aut omated message] The Basophils) system which ge nerated this result tra nsmitted reference range : <=1.0. The reference r samantha was not used to int erpret this result as normal/abnormal . [facility] BudaZujbcuxFXVKHKMEAB9461-47-60 09:04:00 Test Item Value Reference Range Interpretation Comments Neutrophils # (test code = Neutrophils 2.2 1.5-8.1 #) [facility] BudaOfijvbxLLVAWCMENP9146-38-33 09:04:00 Test Item Value Reference Range Interpretation Comments Lymphocytes # (test code = Lymphocytes 0.8 1.0-5.5 #) [facility] BudaDejakczPYSOTXXMMO8628-13-73 09:04:00 Test Item Value Reference Range Interpretation Comments Monocytes # (test code 0.5 See_Comment [Aut omated message] The = Monocytes #) system which generated this result tra nsmitted reference range : <=0.8. The reference r samantha was not used to int erpret this result as normal/abnormal . [facility] BudaGnhrqofHUWNRBHKRL6442-53-41 09:04:00 Test Item Value Reference Range Interpretation Comments Eosinophils # (test code 0.1 See_Comment [A utomated message] The = Eosinophils #) system whic h generated this result tra nsmitted reference range : <=0.5. The reference r samantha was not used to int erpret this result as normal/abnormal . [facility] BudaXcxteovGKRMVFZIFR6768-39-45 09:04:00 Test Item Value Reference Range Interpretation Comments Macrocyte (test code = 1+ *ABN*(12/15/21 Macrocyte) 4:04 AM) [facility] PasoPethtkxDAXQZJTNJJ5488-24-67 09:04:00 Test Item Value Reference Range Interpretation Comments C-REACTIVE PROTEIN (test code = 25.1 C-REACTIVE PROTEIN) [facility] PasoGlmjmeqNHPAHHVORN8699-48-22 09:04:00 Test Item Value Reference Range Interpretation Comments Vanco Lvl (test code = Vanco Lvl) 15.2 [facility]2022-07-18 09:04:00 Test Item Value Reference Range Interpretation Comments Glucose Lvl (test code = Glucose Lvl) 59 70-99 [facility]2022-07-18 09:04:00 Test Item Value Reference Range Interpretation Comments BUN (test code = BUN) 41 7-22 [place] 662952-07-18 09:04:00 Test Item Value Reference Range Interpretation Comments Creatinine Lvl (test code = Creatinine 7.00 0.50-1.40 Lvl) [place] 662952-07-18 09:04:00 Test Item Value Reference Range Interpretation Comments Sodium Lvl (test code = Sodium Lvl) 134 135-145 [place] 662952-07-18 09:04:00 Test Item Value Reference Range Interpretation Comments Potassium Lvl (test code = Potassium 4.0 3.5-5.1 Lvl) [place] 662952-07-18 09:04:00 Test Item Value Reference Range Interpretation Comments Chloride Lvl (test code = Chloride Lvl) 102 95-109 [place] 662952-07-18 09:04:00 Test Item Value Reference Range Interpretation Comments CO2 (test code = CO2) 25 24-32 [place] 662952-07-18 09:04:00 Test Item Value Reference Range Interpretation Comments Calcium Lvl (test code = Calcium Lvl) 9.1 8.5-10.5 [place] 662952-07-18 09:04:00 Test Item Value Reference Range Interpretation Comments Total Protein (test code = Total 6.2 6.4-8.4 Protein) [place] 662952-07-18 09:04:00 Test Item Value Reference Range Interpretation Comments Albumin Lvl (test code = Albumin Lvl) 2.8 3.5-5.0 [place] 662952-07-18 09:04:00 Test Item Value Reference Range Interpretation Comments ALT (test code = ALT) 78 See_Comment [Auto mated message] The system which ge nerated this result transmit swathi reference range : <=65. The reference range was not used to interpr et this result as deny l/abnormal. [facility] PasoSoloingles.[facility] [employer] [id number] 09:04:00 Test Item Value Reference Range Interpretation Comments AST (test code = AST) 117 See_Comment [Auto mated message] The system which ge nerated this result transmit swathi reference range : <=37. The reference range was not used to interpr et this result as deny l/abnormal. [place] 662952-07-18 09:04:00 Test Item Value Reference Range Interpretation Comments Alk Phos (test code = Alk Phos) 251 39-136 [place] 662952-07-18 09:04:00 Test Item Value Reference Range Interpretation Comments Bili Total (test code = Bili Total) 0.9 0.2-1.3 [place] 662952-07-18 09:04:00 Test Item Value Reference Range Interpretation Comments AGAP (test code = AGAP) 11.0 10.0-20.0 [place] 662952-07-18 09:04:00 Test Item Value Reference Range Interpretation Comments B/C Ratio (test code = B/C Ratio) 6 1 6-25 [place] 662952-07-18 09:04:00 Test Item Value Reference Range Interpretation Comments Globulin (test code = Globulin) 3.4 2.7-4.2 [place] 662952-07-18 09:04:00 Test Item Value Reference Range Interpretation Comments Glucose Lvl (test code = Glucose Lvl) 59 70-99 [place] 662952-07-18 09:04:00 Test Item Value Reference Range Interpretation Comments BUN (test code = BUN) 41 7-22 [place] 662952-07-18 09:04:00 Test Item Value Reference Range Interpretation Comments Creatinine Lvl (test code = Creatinine 7.00 0.50-1.40 Lvl) [place] 662952-07-18 09:04:00 Test Item Value Reference Range Interpretation Comments Sodium Lvl (test code = Sodium Lvl) 134 135-145 [place] 662952-07-18 09:04:00 Test Item Value Reference Range Interpretation Comments Potassium Lvl (test code = Potassium 4.0 3.5-5.1 Lvl) [place] 662952-07-18 09:04:00 Test Item Value Reference Range Interpretation Comments Chloride Lvl (test code = Chloride Lvl) 102 95-109 [place] 662952-07-18 09:04:00 Test Item Value Reference Range Interpretation Comments CO2 (test code = CO2) 25 24-32 [place] 662952-07-18 09:04:00 Test Item Value Reference Range Interpretation Comments Calcium Lvl (test code = Calcium Lvl) 9.1 8.5-10.5 [place] 662952-07-18 09:04:00 Test Item Value Reference Range Interpretation Comments Total Protein (test code = Total 6.2 6.4-8.4 Protein) [facility] HospitalSoftware Spectrum CorporationJOEL [place]LE [id number] 09:04:00 Test Item Value Reference Range Interpretation Comments A/G Ratio (test code = A/G Ratio) 0.8 1 0.7-1.6 [place] [address]-07-18 09:04:00 Test Item Value Reference Range Interpretation Comments Albumin Lvl (test code = Albumin Lvl) 2.8 3.5-5.0 [facility] PasoSoloingles[facility] [id number] 09:04:00 Test Item Value Reference Range Interpretation Comments ALT (test code = ALT) 78 See_Comment [Auto mated message] The system which ge nerated this result transmit swathi reference range : <=65. The reference range was not used to interpr et this result as deny l/abnormal. [facility] [id number] 09:04:00 Test Item Value Reference Range Interpretation Comments AST (test code = AST) 117 See_Comment [Auto mated message] The system which ge nerated this result transmit swathi reference range : <=37. The reference range was not used to interpr et this result as deny l/abnormal. [facility] [id number] 09:04:00 Test Item Value Reference Range Interpretation Comments Alk Phos (test code = Alk Phos) 251 39-136 [facility] [id number] 09:04:00 Test Item Value Reference Range Interpretation Comments Bili Total (test code = Bili Total) 0.9 0.2-1.3 [facility] [id number] 09:04:00 Test Item Value Reference Range Interpretation Comments AGAP (test code = AGAP) 11.0 10.0-20.0 [facility] [id number] 09:04:00 Test Item Value Reference Range Interpretation Comments B/C Ratio (test code = B/C Ratio) 6 1 6-25 [facility] [id number] 09:04:00 Test Item Value Reference Range Interpretation Comments Globulin (test code = Globulin) 3.4 2.7-4.2 [facility] [id number] 09:04:00 Test Item Value Reference Range Interpretation Comments A/G Ratio (test code = A/G Ratio) 0.8 1 0.7-1.6 [facility] [id number] 09:04:00 Test Item Value Reference Range Interpretation Comments eGFR (test code = eGFR) 8 [facility] [id number] 09:04:00 Test Item Value Reference Range Interpretation Comments eGFR (test code = eGFR) 8 [facility] BudaCjhljdlGCICTBKKFB5292-53-49 09:04:00 Test Item Value Reference Range Interpretation Comments D-Dimer (test code = D-Dimer) 3.03 [facility] BudaCnhulobSGJGNAITTU5991-21-73 09:04:00 Test Item Value Reference Range Interpretation Comments WBC (test code = WBC) 3.6 3.7-10.4 [facility] BudaPwxelmmJKWCVSDUQV3568-24-53 09:04:00 Test Item Value Reference Range Interpretation Comments RBC (test code = RBC) 2.07 4.70-6.10 [facility] BudaXhcvyrnQGEKGZVIHF8045-78-15 09:04:00 Test Item Value Reference Range Interpretation Comments Hgb (test code = Hgb) 7.5 14.0-18.0 [facility] BudaRnqmtcmARZKHBOHXB1234-83-60 09:04:00 Test Item Value Reference Range Interpretation Comments Hct (test code = Hct) 22.0 42.0-54.0 [facility] BudaHncqevgVAXUBLQEMX9141-17-09 09:04:00 Test Item Value Reference Range Interpretation Comments MCV (test code = MCV) 106.3 80.0-94.0 [facility] BudaZdokfkoDKHDVSLAVF4698-70-71 09:04:00 Test Item Value Reference Range Interpretation Comments MCH (test code = MCH) 36.1 pg 27.0-31.0 [facility] BudaDnisdwiXPUFSFQGXP9105-72-64 09:04:00 Test Item Value Reference Range Interpretation Comments MCHC (test code = MCHC) 33.9 32.0-36.0 [facility] BudaMqkalsjWRBOYEGUEF3807-73-21 09:04:00 Test Item Value Reference Range Interpretation Comments RDW (test code = RDW) 23.9 11.5-14.5 [facility] BudaYhgewjtMDGRCVSFFZ1636-23-09 09:04:00 Test Item Value Reference Range Interpretation Comments Platelet (test code = Platelet) 133 133-450 [facility] BudaJssxrdyWSUOTCKOAG1718-70-57 09:04:00 Test Item Value Reference Range Interpretation Comments D-Dimer (test code = D-Dimer) 3.03 [facility] BudaDuvesmsYIWKJFRJZA0882-93-26 09:04:00 Test Item Value Reference Range Interpretation Comments MPV (test code = MPV) 8.1 7.4-10.4 [place] 475022-07-18 09:04:00 Test Item Value Reference Range Interpretation Comments Segs (test code = Segs) 60.8 45.0-75.0 [facility] BudaTzwtbdyFKXPUURNIT0671-52-26 09:04:00 Test Item Value Reference Range Interpretation Comments Lymphocytes (test code = Lymphocytes) 22.3 20.0-40.0 [place] 475022-07-18 09:04:00 Test Item Value Reference Range Interpretation Comments Monocytes (test code = Monocytes) 13.9 2.0-12.0 [facility] BudaSwezbazSFKDCLVMRQ6266-55-03 09:04:00 Test Item Value Reference Range Interpretation Comments Eosinophils (test code = 2.6 See_Comment [A utomated message] The Eosinophils) system which ge nerated this result tra nsmitted reference range : <=4.0. The reference r samantha was not used to int erpret this result as normal/abnormal . [facility] BudaWuxsmjlYAEYAESCKN0602-78-33 09:04:00 Test Item Value Reference Range Interpretation Comments Basophils (test code = 0.4 See_Comment [Aut omated message] The Basophils) system which ge nerated this result tra nsmitted reference range : <=1.0. The reference r samantha was not used to int erpret this result as normal/abnormal . [facility] BudaBjknkhzQCJOFWXNRG2012-71-30 09:04:00 Test Item Value Reference Range Interpretation Comments Neutrophils # (test code = Neutrophils 2.2 1.5-8.1 #) [facility] BudaEphbotqQUIEFCFEEH6201-88-63 09:04:00 Test Item Value Reference Range Interpretation Comments Lymphocytes # (test code = Lymphocytes 0.8 1.0-5.5 #) [place] [address]-07-18 09:04:00 Test Item Value Reference Range Interpretation Comments Monocytes # (test code 0.5 See_Comment [Aut omated message] The = Monocytes #) system which generated this result tra nsmitted reference range : <=0.8. The reference r samantha was not used to int erpret this result as normal/abnormal . [facility] PasoYhlmzwiZODDCTTGZV4539-63-51 09:04:00 Test Item Value Reference Range Interpretation Comments Eosinophils # (test code 0.1 See_Comment [A utomated message] The = Eosinophils #) system whic h generated this result tra nsmitted reference range : <=0.5. The reference r samantha was not used to int erpret this result as normal/abnormal . [facility] PasoLrnjpeyAJRCJANWIX5487-50-32 09:04:00 Test Item Value Reference Range Interpretation Comments WBC (test code = WBC) 3.6 3.7-10.4 [facility] PasoNnpmpfbKRZKVKXFOL9562-03-73 09:04:00 Test Item Value Reference Range Interpretation Comments Macrocyte (test code = 1+ *ABN*(12/15/21 Macrocyte) 4:04 AM) [facility] PasoLnzmgahCBSAQTNIYG0173-62-43 09:04:00 Test Item Value Reference Range Interpretation Comments C-REACTIVE PROTEIN (test code = 25.1 C-REACTIVE PROTEIN) [facility] PasoMaiqzevCKVJYAMMZB5656-20-40 09:04:00 Test Item Value Reference Range Interpretation Comments Vanco Lvl (test code = Vanco Lvl) 15.2 [facility] PasoAvlizisGBIKWSTNLQ4945-72-16 09:04:00 Test Item Value Reference Range Interpretation Comments RBC (test code = RBC) 2.07 4.70-6.10 [facility] PasoKhsxilyPBFQAUITAI3957-16-10 09:04:00 Test Item Value Reference Range Interpretation Comments Hgb (test code = Hgb) 7.5 14.0-18.0 [facility] PasoBzerhmgWVSFOMGLKL3574-09-50 09:04:00 Test Item Value Reference Range Interpretation Comments Hct (test code = Hct) 22.0 42.0-54.0 [facility] PasoYrbjtrlRYEKVXBVSQ1256-28-35 09:04:00 Test Item Value Reference Range Interpretation Comments MCV (test code = MCV) 106.3 80.0-94.0 [facility] PasoFbshulnADKGQBJDBX7872-73-47 09:04:00 Test Item Value Reference Range Interpretation Comments MCH (test code = MCH) 36.1 pg 27.0-31.0 [facility] PasoBcgfykxVFWBJXETXX0768-94-06 09:04:00 Test Item Value Reference Range Interpretation Comments MCHC (test code = MCHC) 33.9 32.0-36.0 [place] [address]-07-18 09:04:00 Test Item Value Reference Range Interpretation Comments RDW (test code = RDW) 23.9 11.5-14.5 [place] [address]-07-18 09:04:00 Test Item Value Reference Range Interpretation Comments Platelet (test code = Platelet) 133 133-450 [place] 475022-07-18 09:04:00 Test Item Value Reference Range Interpretation Comments MPV (test code = MPV) 8.1 7.4-10.4 [place] [address]-07-18 09:04:00 Test Item Value Reference Range Interpretation Comments Segs (test code = Segs) 60.8 45.0-75.0 [place] [address]-07-18 09:04:00 Test Item Value Reference Range Interpretation Comments Lymphocytes (test code = Lymphocytes) 22.3 20.0-40.0 [place] 475022-07-18 09:04:00 Test Item Value Reference Range Interpretation Comments Monocytes (test code = Monocytes) 13.9 2.0-12.0 [place] 475022-07-18 09:04:00 Test Item Value Reference Range Interpretation Comments Eosinophils (test code = 2.6 See_Comment [A utomated message] The Eosinophils) system which ge nerated this result tra nsmitted reference range : <=4.0. The reference r samantha was not used to int erpret this result as normal/abnormal . [place] 475022-07-18 09:04:00 Test Item Value Reference Range Interpretation Comments Basophils (test code = 0.4 See_Comment [Aut omated message] The Basophils) system which ge nerated this result tra nsmitted reference range : <=1.0. The reference r samantha was not used to int erpret this result as normal/abnormal . [place] 475022-07-18 09:04:00 Test Item Value Reference Range Interpretation Comments Neutrophils # (test code = Neutrophils 2.2 1.5-8.1 #) [place] [address]-07-18 09:04:00 Test Item Value Reference Range Interpretation Comments Lymphocytes # (test code = Lymphocytes 0.8 1.0-5.5 #) [place] [address]-07-18 09:04:00 Test Item Value Reference Range Interpretation Comments Monocytes # (test code 0.5 See_Comment [Aut omated message] The = Monocytes #) system which generated this result tra nsmitted reference range : <=0.8. The reference r samantha was not used to int erpret this result as normal/abnormal . [facility]udaIdvjlinWDVKQEEDNZ5388-48-93 09:04:00 Test Item Value Reference Range Interpretation Comments Eosinophils # (test code 0.1 See_Comment [A utomated message] The = Eosinophils #) system whic h generated this result tra nsmitted reference range : <=0.5. The reference r samantha was not used to int erpret this result as normal/abnormal . [facility] BudaWudkewjEKRZWYEBLO4277-38-21 09:04:00 Test Item Value Reference Range Interpretation Comments Macrocyte (test code = 1+ *ABN*(12/15/21 Macrocyte) 4:04 AM) [facility] PasoAdnoklsCOZEDDPOQQ2810-49-85 09:04:00 Test Item Value Reference Range Interpretation Comments C-REACTIVE PROTEIN (test code = 25.1 C-REACTIVE PROTEIN) [facility] PasoFluhefnTEKAIFULJH6993-02-77 09:04:00 Test Item Value Reference Range Interpretation Comments Vanco Lvl (test code = Vanco Lvl) 15.2 [facility]olo[facility] [id number] 09:04:00 Test Item Value Reference Range Interpretation Comments Glucose Lvl (test code = Glucose Lvl) 59 70-99 [facility] PasoSoloingles.[facility] [id number] 09:04:00 Test Item Value Reference Range Interpretation Comments BUN (test code = BUN) 41 7-22 [facility] PasoSoloingles.[facility] [id number] 09:04:00 Test Item Value Reference Range Interpretation Comments Creatinine Lvl (test code = Creatinine 7.00 0.50-1.40 Lvl) [facility] [id number] 09:04:00 Test Item Value Reference Range Interpretation Comments Sodium Lvl (test code = Sodium Lvl) 134 135-145 [facility] [id number] 09:04:00 Test Item Value Reference Range Interpretation Comments Potassium Lvl (test code = Potassium 4.0 3.5-5.1 Lvl) [facility] [id number] 09:04:00 Test Item Value Reference Range Interpretation Comments Chloride Lvl (test code = Chloride Lvl) 102 95-109 [facility] HospitalSoftware Spectrum CorporationKATIE [place] [address]50WGTDV6791-86-27 09:04:00 Test Item Value Reference Range Interpretation Comments CO2 (test code = CO2) 25 24-32 [facility]Software [facility] CorporationKATIE [place] [id number] 09:04:00 Test Item Value Reference Range Interpretation Comments Calcium Lvl (test code = Calcium Lvl) 9.1 8.5-10.5 [facility]Software [facility] CorporationKATIE [place] [address]FSVTU4067-11-51 09:04:00 Test Item Value Reference Range Interpretation Comments Total Protein (test code = Total 6.2 6.4-8.4 Protein) [facility]Software [facility] CorporationKATIE [place]LE [address]JBTVB1212-24-55 09:04:00 Test Item Value Reference Range Interpretation Comments Albumin Lvl (test code = Albumin Lvl) 2.8 3.5-5.0 [facility] [id number] 09:04:00 Test Item Value Reference Range Interpretation Comments ALT (test code = ALT) 78 See_Comment [Auto mated message] The system which ge nerated this result transmit swathi reference range : <=65. The reference range was not used to interpr et this result as deny l/abnormal. [facility] [id number] 09:04:00 Test Item Value Reference Range Interpretation Comments AST (test code = AST) 117 See_Comment [Auto mated message] The system which ge nerated this result transmit swathi reference range : <=37. The reference range was not used to interpr et this result as deny l/abnormal. [facility] [id number] 09:04:00 Test Item Value Reference Range Interpretation Comments Alk Phos (test code = Alk Phos) 251 39-136 [facility] [id number] 09:04:00 Test Item Value Reference Range Interpretation Comments Bili Total (test code = Bili Total) 0.9 0.2-1.3 [facility] [id number] 09:04:00 Test Item Value Reference Range Interpretation Comments AGAP (test code = AGAP) 11.0 10.0-20.0 [facility] [id number] 09:04:00 Test Item Value Reference Range Interpretation Comments B/C Ratio (test code = B/C Ratio) 6 1 6-25 [facility]2022-07-18 09:04:00 Test Item Value Reference Range Interpretation Comments Globulin (test code = Globulin) 3.4 2.7-4.2 [facility] [id number] 09:04:00 Test Item Value Reference Range Interpretation Comments A/G Ratio (test code = A/G Ratio) 0.8 1 0.7-1.6 [facility]2022-07-18 09:04:00 Test Item Value Reference Range Interpretation Comments eGFR (test code = eGFR) 8 [facility] BudaViambpuCXOQDFXOBU5845-25-54 09:04:00 Test Item Value Reference Range Interpretation Comments D-Dimer (test code = D-Dimer) 3.03 [place] 475022-07-18 09:04:00 Test Item Value Reference Range Interpretation Comments WBC (test code = WBC) 3.6 3.7-10.4 [facility] BudaIzdfqkjUOVDDRMFYW7225-11-34 09:04:00 Test Item Value Reference Range Interpretation Comments RBC (test code = RBC) 2.07 4.70-6.10 [facility] BudaBndmoddIBXJZUVSUQ7301-91-60 09:04:00 Test Item Value Reference Range Interpretation Comments Hgb (test code = Hgb) 7.5 14.0-18.0 [facility] BudaMyedlriOVBPZWBFVJ9946-96-79 09:04:00 Test Item Value Reference Range Interpretation Comments Hct (test code = Hct) 22.0 42.0-54.0 [facility] BudaRqzjbowCQSDSNEZHO7025-84-86 09:04:00 Test Item Value Reference Range Interpretation Comments MCV (test code = MCV) 106.3 80.0-94.0 [place] 475022-07-18 09:04:00 Test Item Value Reference Range Interpretation Comments MCH (test code = MCH) 36.1 pg 27.0-31.0 [facility] BudaMjoaxwgLVRVEKXUNH9292-24-28 09:04:00 Test Item Value Reference Range Interpretation Comments MCHC (test code = MCHC) 33.9 32.0-36.0 [facility] BudaRtxzhkhPUQECZWQJF5353-21-53 09:04:00 Test Item Value Reference Range Interpretation Comments RDW (test code = RDW) 23.9 11.5-14.5 [facility] BudaOekamvoUIFNIIKBXC8583-64-88 09:04:00 Test Item Value Reference Range Interpretation Comments Platelet (test code = Platelet) 133 133-450 [facility] BudaOgilxmfYIKLBSFKGY1348-73-16 09:04:00 Test Item Value Reference Range Interpretation Comments MPV (test code = MPV) 8.1 7.4-10.4 [place] 475022-07-18 09:04:00 Test Item Value Reference Range Interpretation Comments Segs (test code = Segs) 60.8 45.0-75.0 [facility] BudaBxcqbiwNLVDBNCWKE7137-33-95 09:04:00 Test Item Value Reference Range Interpretation Comments Lymphocytes (test code = Lymphocytes) 22.3 20.0-40.0 [place] [address]-07-18 09:04:00 Test Item Value Reference Range Interpretation Comments Monocytes (test code = Monocytes) 13.9 2.0-12.0 [place] [address]-07-18 09:04:00 Test Item Value Reference Range Interpretation Comments Eosinophils (test code = 2.6 See_Comment [A utomated message] The Eosinophils) system which ge nerated this result tra nsmitted reference range : <=4.0. The reference r samantha was not used to int erpret this result as normal/abnormal . [facility] BudaKumuvodADUMESCKCP5060-94-15 09:04:00 Test Item Value Reference Range Interpretation Comments Basophils (test code = 0.4 See_Comment [Aut omated message] The Basophils) system which ge nerated this result tra nsmitted reference range : <=1.0. The reference r samantha was not used to int erpret this result as normal/abnormal . [facility] BudaLwseibsVHDWRYAVYY0213-35-99 09:04:00 Test Item Value Reference Range Interpretation Comments Neutrophils # (test code = Neutrophils 2.2 1.5-8.1 #) [place] 475022-07-18 09:04:00 Test Item Value Reference Range Interpretation Comments Lymphocytes # (test code = Lymphocytes 0.8 1.0-5.5 #) [place] [address]-07-18 09:04:00 Test Item Value Reference Range Interpretation Comments Monocytes # (test code 0.5 See_Comment [Aut omated message] The = Monocytes #) system which generated this result tra nsmitted reference range : <=0.8. The reference r samantha was not used to int erpret this result as normal/abnormal . [facility] BudaEqxmewiCYBVEJQKWJ4533-57-24 09:04:00 Test Item Value Reference Range Interpretation Comments Eosinophils # (test code 0.1 See_Comment [A utomated message] The = Eosinophils #) system whic h generated this result tra nsmitted reference range : <=0.5. The reference r samantha was not used to int erpret this result as normal/abnormal . [facility]JtgeburNOPEHPECBG2145-00-89 09:04:00 Test Item Value Reference Range Interpretation Comments Macrocyte (test code = 1+ *ABN*(12/15/21 Macrocyte) 4:04 AM) [facility] PasoZubvvsgESWFSEFZZQ7285-00-81 09:04:00 Test Item Value Reference Range Interpretation Comments C-REACTIVE PROTEIN (test code = 25.1 C-REACTIVE PROTEIN) [facility] PasoKehmlnfVNVXWGGDRF6795-68-46 09:04:00 Test Item Value Reference Range Interpretation Comments Vanco Lvl (test code = Vanco Lvl) 15.2 [facility] [id number] 09:04:00 Test Item Value Reference Range Interpretation Comments Glucose Lvl (test code = Glucose Lvl) 59 70-99 [facility] [id number] 09:04:00 Test Item Value Reference Range Interpretation Comments BUN (test code = BUN) 41 7-22 [facility] [id number] 09:04:00 Test Item Value Reference Range Interpretation Comments Creatinine Lvl (test code = Creatinine 7.00 0.50-1.40 Lvl) [facility] [id number] 09:04:00 Test Item Value Reference Range Interpretation Comments Sodium Lvl (test code = Sodium Lvl) 134 135-145 [facility]oSoloingles[facility] [id number] 09:04:00 Test Item Value Reference Range Interpretation Comments Potassium Lvl (test code = Potassium 4.0 3.5-5.1 Lvl) [facility]2022-07-18 09:04:00 Test Item Value Reference Range Interpretation Comments Chloride Lvl (test code = Chloride Lvl) 102 95-109 [facility]2022-07-18 09:04:00 Test Item Value Reference Range Interpretation Comments CO2 (test code = CO2) 25 24-32 [facility]oSoloingles[facility] [id number] 09:04:00 Test Item Value Reference Range Interpretation Comments Calcium Lvl (test code = Calcium Lvl) 9.1 8.5-10.5 [place] 662952-07-18 09:04:00 Test Item Value Reference Range Interpretation Comments Total Protein (test code = Total 6.2 6.4-8.4 Protein) [place] [address]-07-18 09:04:00 Test Item Value Reference Range Interpretation Comments Albumin Lvl (test code = Albumin Lvl) 2.8 3.5-5.0 [place] 662952-07-18 09:04:00 Test Item Value Reference Range Interpretation Comments ALT (test code = ALT) 78 See_Comment [Auto mated message] The system which ge nerated this result transmit swathi reference range : <=65. The reference range was not used to interpr et this result as deny l/abnormal. [place] 662952-07-18 09:04:00 Test Item Value Reference Range Interpretation Comments AST (test code = AST) 117 See_Comment [Auto mated message] The system which ge nerated this result transmit swathi reference range : <=37. The reference range was not used to interpr et this result as deny l/abnormal. [facility]oSoloingles[facility] [id number] 09:04:00 Test Item Value Reference Range Interpretation Comments Alk Phos (test code = Alk Phos) 251 39-136 [place] 662952-07-18 09:04:00 Test Item Value Reference Range Interpretation Comments Bili Total (test code = Bili Total) 0.9 0.2-1.3 [facility] PasoSoloingles.[facility] [id number] 09:04:00 Test Item Value Reference Range Interpretation Comments AGAP (test code = AGAP) 11.0 10.0-20.0 [facility] [id number] 09:04:00 Test Item Value Reference Range Interpretation Comments B/C Ratio (test code = B/C Ratio) 6 1 6-25 [place] [address]-07-18 09:04:00 Test Item Value Reference Range Interpretation Comments Globulin (test code = Globulin) 3.4 2.7-4.2 [facility]oSoloingles[facility] [id number] 09:04:00 Test Item Value Reference Range Interpretation Comments A/G Ratio (test code = A/G Ratio) 0.8 1 0.7-1.6 [facility]2022-07-18 09:04:00 Test Item Value Reference Range Interpretation Comments eGFR (test code = eGFR) 8 [facility] BudaQeqgjgkWUTSFXCGMP2533-56-99 09:04:00 Test Item Value Reference Range Interpretation Comments D-Dimer (test code = D-Dimer) 3.03 [place] 475022-07-18 09:04:00 Test Item Value Reference Range Interpretation Comments WBC (test code = WBC) 3.6 3.7-10.4 [facility] BudaHpegwrhQQSZTJZQIA8334-01-48 09:04:00 Test Item Value Reference Range Interpretation Comments RBC (test code = RBC) 2.07 4.70-6.10 [facility] BudaOfigclyQIUALBUBSM4425-52-02 09:04:00 Test Item Value Reference Range Interpretation Comments Hgb (test code = Hgb) 7.5 14.0-18.0 [place] 475022-07-18 09:04:00 Test Item Value Reference Range Interpretation Comments Hct (test code = Hct) 22.0 42.0-54.0 [facility] BudaYrfhgifHOIWADSKRH5774-89-25 09:04:00 Test Item Value Reference Range Interpretation Comments MCV (test code = MCV) 106.3 80.0-94.0 [facility] BudaHoerhjnDGWZQEJJWO1344-84-94 09:04:00 Test Item Value Reference Range Interpretation Comments MCH (test code = MCH) 36.1 pg 27.0-31.0 [facility] BudaRjuxxldULHUSRFCFH1940-40-39 09:04:00 Test Item Value Reference Range Interpretation Comments MCHC (test code = MCHC) 33.9 32.0-36.0 [facility] BudaHubeqcoKIKBLFFTYN9575-43-24 09:04:00 Test Item Value Reference Range Interpretation Comments RDW (test code = RDW) 23.9 11.5-14.5 [facility] BudaXbpbfeuIMYAIMEMOE4962-65-10 09:04:00 Test Item Value Reference Range Interpretation Comments Platelet (test code = Platelet) 133 133-450 [facility] BudaVnmixdqSKNVAXILSL7825-56-76 09:04:00 Test Item Value Reference Range Interpretation Comments MPV (test code = MPV) 8.1 7.4-10.4 [place] 475022-07-18 09:04:00 Test Item Value Reference Range Interpretation Comments Segs (test code = Segs) 60.8 45.0-75.0 [place] 475022-07-18 09:04:00 Test Item Value Reference Range Interpretation Comments Lymphocytes (test code = Lymphocytes) 22.3 20.0-40.0 [place] 475022-07-18 09:04:00 Test Item Value Reference Range Interpretation Comments Monocytes (test code = Monocytes) 13.9 2.0-12.0 [place] [address]-07-18 09:04:00 Test Item Value Reference Range Interpretation Comments Eosinophils (test code = 2.6 See_Comment [A utomated message] The Eosinophils) system which ge nerated this result tra nsmitted reference range : <=4.0. The reference r samantha was not used to int erpret this result as normal/abnormal . [place] 475022-07-18 09:04:00 Test Item Value Reference Range Interpretation Comments Basophils (test code = 0.4 See_Comment [Aut omated message] The Basophils) system which ge nerated this result tra nsmitted reference range : <=1.0. The reference r samantha was not used to int erpret this result as normal/abnormal . [place] 475022-07-18 09:04:00 Test Item Value Reference Range Interpretation Comments Neutrophils # (test code = Neutrophils 2.2 1.5-8.1 #) [place] 475022-07-18 09:04:00 Test Item Value Reference Range Interpretation Comments Lymphocytes # (test code = Lymphocytes 0.8 1.0-5.5 #) [place] 475022-07-18 09:04:00 Test Item Value Reference Range Interpretation Comments Monocytes # (test code 0.5 See_Comment [Aut omated message] The = Monocytes #) system which generated this result tra nsmitted reference range : <=0.8. The reference r samantha was not used to int erpret this result as normal/abnormal . [place] [address]-07-18 09:04:00 Test Item Value Reference Range Interpretation Comments Eosinophils # (test code 0.1 See_Comment [A utomated message] The = Eosinophils #) system whic h generated this result tra nsmitted reference range : <=0.5. The reference r samantha was not used to int erpret this result as normal/abnormal . [facility] PasoBdqxmtqNYDDIIISCM9914-86-13 09:04:00 Test Item Value Reference Range Interpretation Comments Macrocyte (test code = 1+ *ABN*(12/15/21 Macrocyte) 4:04 AM) [facility] PasoGgztnblVENZDKWNNS4517-10-31 09:04:00 Test Item Value Reference Range Interpretation Comments C-REACTIVE PROTEIN (test code = 25.1 C-REACTIVE PROTEIN) [facility] PasoUgxhvlpWXEFZQONZE7251-04-90 09:04:00 Test Item Value Reference Range Interpretation Comments Vanco Lvl (test code = Vanco Lvl) 15.2 [facility]2022-07-18 09:04:00 Test Item Value Reference Range Interpretation Comments Glucose Lvl (test code = Glucose Lvl) 59 70-99 [facility]2022-07-18 09:04:00 Test Item Value Reference Range Interpretation Comments BUN (test code = BUN) 41 7-22 [place] 662952-07-18 09:04:00 Test Item Value Reference Range Interpretation Comments Creatinine Lvl (test code = Creatinine 7.00 0.50-1.40 Lvl) [facility]2022-07-18 09:04:00 Test Item Value Reference Range Interpretation Comments Sodium Lvl (test code = Sodium Lvl) 134 135-145 [facility]2022-07-18 09:04:00 Test Item Value Reference Range Interpretation Comments Potassium Lvl (test code = Potassium 4.0 3.5-5.1 Lvl) [facility]2022-07-18 09:04:00 Test Item Value Reference Range Interpretation Comments Chloride Lvl (test code = Chloride Lvl) 102 95-109 [facility]2022-07-18 09:04:00 Test Item Value Reference Range Interpretation Comments CO2 (test code = CO2) 25 24-32 [facility]2022-07-18 09:04:00 Test Item Value Reference Range Interpretation Comments Calcium Lvl (test code = Calcium Lvl) 9.1 8.5-10.5 [place] 662952-07-18 09:04:00 Test Item Value Reference Range Interpretation Comments Total Protein (test code = Total 6.2 6.4-8.4 Protein) [place] [address]-07-18 09:04:00 Test Item Value Reference Range Interpretation Comments Albumin Lvl (test code = Albumin Lvl) 2.8 3.5-5.0 [place] 662952-07-18 09:04:00 Test Item Value Reference Range Interpretation Comments ALT (test code = ALT) 78 See_Comment [Auto mated message] The system which ge nerated this result transmit swathi reference range : <=65. The reference range was not used to interpr et this result as deny l/abnormal. [place] [address]-07-18 09:04:00 Test Item Value Reference Range Interpretation Comments AST (test code = AST) 117 See_Comment [Auto mated message] The system which ge nerated this result transmit swathi reference range : <=37. The reference range was not used to interpr et this result as deny l/abnormal. [place] 662952-07-18 09:04:00 Test Item Value Reference Range Interpretation Comments Alk Phos (test code = Alk Phos) 251 39-136 [place] [address]-07-18 09:04:00 Test Item Value Reference Range Interpretation Comments Bili Total (test code = Bili Total) 0.9 0.2-1.3 [place] 662952-07-18 09:04:00 Test Item Value Reference Range Interpretation Comments AGAP (test code = AGAP) 11.0 10.0-20.0 [place] [address]-07-18 09:04:00 Test Item Value Reference Range Interpretation Comments B/C Ratio (test code = B/C Ratio) 6 1 6-25 [place] [address]-07-18 09:04:00 Test Item Value Reference Range Interpretation Comments Globulin (test code = Globulin) 3.4 2.7-4.2 [place] [address]-07-18 09:04:00 Test Item Value Reference Range Interpretation Comments A/G Ratio (test code = A/G Ratio) 0.8 1 0.7-1.6 [place] [address]-07-18 09:04:00 Test Item Value Reference Range Interpretation Comments eGFR (test code = eGFR) 8 [facility] BudaXslwihnDOZEKPJISA6807-28-96 09:04:00 Test Item Value Reference Range Interpretation Comments D-Dimer (test code = D-Dimer) 3.03 [facility] BudaRhxjgoqVNVRTZXXJP0822-52-91 09:04:00 Test Item Value Reference Range Interpretation Comments WBC (test code = WBC) 3.6 3.7-10.4 [place] 475022-07-18 09:04:00 Test Item Value Reference Range Interpretation Comments RBC (test code = RBC) 2.07 4.70-6.10 [place] 475022-07-18 09:04:00 Test Item Value Reference Range Interpretation Comments Hgb (test code = Hgb) 7.5 14.0-18.0 [place] 475022-07-18 09:04:00 Test Item Value Reference Range Interpretation Comments Hct (test code = Hct) 22.0 42.0-54.0 [place] 475022-07-18 09:04:00 Test Item Value Reference Range Interpretation Comments MCV (test code = MCV) 106.3 80.0-94.0 [place] 475022-07-18 09:04:00 Test Item Value Reference Range Interpretation Comments MCH (test code = MCH) 36.1 pg 27.0-31.0 [facility] BudaLmfkxvmSSPPPAQXWX9843-42-82 09:04:00 Test Item Value Reference Range Interpretation Comments MCHC (test code = MCHC) 33.9 32.0-36.0 [facility] [id number] 09:04:00 Test Item Value Reference Range Interpretation Comments RDW (test code = RDW) 23.9 11.5-14.5 [place] 475022-07-18 09:04:00 Test Item Value Reference Range Interpretation Comments Platelet (test code = Platelet) 133 133-450 [facility] [id number] 09:04:00 Test Item Value Reference Range Interpretation Comments MPV (test code = MPV) 8.1 7.4-10.4 [place] 475022-07-18 09:04:00 Test Item Value Reference Range Interpretation Comments Segs (test code = Segs) 60.8 45.0-75.0 [place] 475022-07-18 09:04:00 Test Item Value Reference Range Interpretation Comments Lymphocytes (test code = Lymphocytes) 22.3 20.0-40.0 [place] 475022-07-18 09:04:00 Test Item Value Reference Range Interpretation Comments Monocytes (test code = Monocytes) 13.9 2.0-12.0 [place] 475022-07-18 09:04:00 Test Item Value Reference Range Interpretation Comments Eosinophils (test code = 2.6 See_Comment [A utomated message] The Eosinophils) system which ge nerated this result tra nsmitted reference range : <=4.0. The reference r samantha was not used to int erpret this result as normal/abnormal . [place] 475022-07-18 09:04:00 Test Item Value Reference Range Interpretation Comments Basophils (test code = 0.4 See_Comment [Aut omated message] The Basophils) system which ge nerated this result tra nsmitted reference range : <=1.0. The reference r samantha was not used to int erpret this result as normal/abnormal . [facility] [id number] 09:04:00 Test Item Value Reference Range Interpretation Comments Neutrophils # (test code = Neutrophils 2.2 1.5-8.1 #) [facility] BudaJxpvhuiRMPFVMVYHL9952-36-41 09:04:00 Test Item Value Reference Range Interpretation Comments Lymphocytes # (test code = Lymphocytes 0.8 1.0-5.5 #) [facility] BudaHwuhyuvVPJYRZIRTD1363-07-12 09:04:00 Test Item Value Reference Range Interpretation Comments Monocytes # (test code 0.5 See_Comment [Aut omated message] The = Monocytes #) system which generated this result tra nsmitted reference range : <=0.8. The reference r samantha was not used to int erpret this result as normal/abnormal . [place] 475022-07-18 09:04:00 Test Item Value Reference Range Interpretation Comments Eosinophils # (test code 0.1 See_Comment [A utomated message] The = Eosinophils #) system whic h generated this result tra nsmitted reference range : <=0.5. The reference r samantha was not used to int erpret this result as normal/abnormal . [place] 475022-07-18 09:04:00 Test Item Value Reference Range Interpretation Comments Macrocyte (test code = 1+ *ABN*(12/15/21 Macrocyte) 4:04 AM) [facility] PasoDwvisjsLPHCAPMEQY9737-02-72 09:04:00 Test Item Value Reference Range Interpretation Comments C-REACTIVE PROTEIN (test code = 25.1 C-REACTIVE PROTEIN) [facility] PasoKqlsyelIIAKBCIDFO1558-06-97 09:04:00 Test Item Value Reference Range Interpretation Comments Vanco Lvl (test code = Vanco Lvl) 15.2 [facility]2022-07-18 09:04:00 Test Item Value Reference Range Interpretation Comments Glucose Lvl (test code = Glucose Lvl) 59 70-99 [facility]2022-07-18 09:04:00 Test Item Value Reference Range Interpretation Comments BUN (test code = BUN) 41 7-22 [facility]2022-07-18 09:04:00 Test Item Value Reference Range Interpretation Comments Creatinine Lvl (test code = Creatinine 7.00 0.50-1.40 Lvl) [facility]2022-07-18 09:04:00 Test Item Value Reference Range Interpretation Comments Sodium Lvl (test code = Sodium Lvl) 134 135-145 [facility]2022-07-18 09:04:00 Test Item Value Reference Range Interpretation Comments Potassium Lvl (test code = Potassium 4.0 3.5-5.1 Lvl) [facility]2022-07-18 09:04:00 Test Item Value Reference Range Interpretation Comments Chloride Lvl (test code = Chloride Lvl) 102 95-109 [facility]2022-07-18 09:04:00 Test Item Value Reference Range Interpretation Comments CO2 (test code = CO2) 25 24-32 [facility]2022-07-18 09:04:00 Test Item Value Reference Range Interpretation Comments Calcium Lvl (test code = Calcium Lvl) 9.1 8.5-10.5 [place] 662952-07-18 09:04:00 Test Item Value Reference Range Interpretation Comments Total Protein (test code = Total 6.2 6.4-8.4 Protein) [facility]2022-07-18 09:04:00 Test Item Value Reference Range Interpretation Comments Albumin Lvl (test code = Albumin Lvl) 2.8 3.5-5.0 [place] 662952-07-18 09:04:00 Test Item Value Reference Range Interpretation Comments ALT (test code = ALT) 78 See_Comment [Auto mated message] The system which ge nerated this result transmit swathi reference range : <=65. The reference range was not used to interpr et this result as deny l/abnormal. [facility] [id number] 09:04:00 Test Item Value Reference Range Interpretation Comments AST (test code = AST) 117 See_Comment [Auto mated message] The system which ge nerated this result transmit swathi reference range : <=37. The reference range was not used to interpr et this result as deny l/abnormal. [facility] [id number] 09:04:00 Test Item Value Reference Range Interpretation Comments Alk Phos (test code = Alk Phos) 251 39-136 [facility] [id number] 09:04:00 Test Item Value Reference Range Interpretation Comments Bili Total (test code = Bili Total) 0.9 0.2-1.3 [facility] PasoSoloingles[facility] [employer] [id number] 09:04:00 Test Item Value Reference Range Interpretation Comments AGAP (test code = AGAP) 11.0 10.0-20.0 [facility] [id number] 09:04:00 Test Item Value Reference Range Interpretation Comments B/C Ratio (test code = B/C Ratio) 6 1 6-25 [facility] [id number] 09:04:00 Test Item Value Reference Range Interpretation Comments Globulin (test code = Globulin) 3.4 2.7-4.2 [facility] [id number] 09:04:00 Test Item Value Reference Range Interpretation Comments A/G Ratio (test code = A/G Ratio) 0.8 1 0.7-1.6 [facility] [id number] 09:04:00 Test Item Value Reference Range Interpretation Comments eGFR (test code = eGFR) 8 [place] 475022-07-18 09:04:00 Test Item Value Reference Range Interpretation Comments D-Dimer (test code = D-Dimer) 3.03 [facility] PasoKankdmpJJRDDITIEI4864-80-78 09:04:00 Test Item Value Reference Range Interpretation Comments WBC (test code = WBC) 3.6 3.7-10.4 [place] 475022-07-18 09:04:00 Test Item Value Reference Range Interpretation Comments RBC (test code = RBC) 2.07 4.70-6.10 [place] 475022-07-18 09:04:00 Test Item Value Reference Range Interpretation Comments Hgb (test code = Hgb) 7.5 14.0-18.0 [place] [address]-07-18 09:04:00 Test Item Value Reference Range Interpretation Comments Hct (test code = Hct) 22.0 42.0-54.0 [place] 475022-07-18 09:04:00 Test Item Value Reference Range Interpretation Comments MCV (test code = MCV) 106.3 80.0-94.0 [place] [address]-07-18 09:04:00 Test Item Value Reference Range Interpretation Comments MCH (test code = MCH) 36.1 pg 27.0-31.0 [place] 475022-07-18 09:04:00 Test Item Value Reference Range Interpretation Comments MCHC (test code = MCHC) 33.9 32.0-36.0 [place] 475022-07-18 09:04:00 Test Item Value Reference Range Interpretation Comments RDW (test code = RDW) 23.9 11.5-14.5 [place] 475022-07-18 09:04:00 Test Item Value Reference Range Interpretation Comments Platelet (test code = Platelet) 133 133-450 [facility] [id number] 09:04:00 Test Item Value Reference Range Interpretation Comments MPV (test code = MPV) 8.1 7.4-10.4 [place] 475022-07-18 09:04:00 Test Item Value Reference Range Interpretation Comments Segs (test code = Segs) 60.8 45.0-75.0 [place] 475022-07-18 09:04:00 Test Item Value Reference Range Interpretation Comments Lymphocytes (test code = Lymphocytes) 22.3 20.0-40.0 [place] [address]-07-18 09:04:00 Test Item Value Reference Range Interpretation Comments Monocytes (test code = Monocytes) 13.9 2.0-12.0 [place] 475022-07-18 09:04:00 Test Item Value Reference Range Interpretation Comments Eosinophils (test code = 2.6 See_Comment [A utomated message] The Eosinophils) system which ge nerated this result tra nsmitted reference range : <=4.0. The reference r samantha was not used to int erpret this result as normal/abnormal . [facility] [id number] 09:04:00 Test Item Value Reference Range Interpretation Comments Basophils (test code = 0.4 See_Comment [Aut omated message] The Basophils) system which ge nerated this result tra nsmitted reference range : <=1.0. The reference r samantha was not used to int erpret this result as normal/abnormal . [facility] BudaLbkyfqiRPXFAHQINC7916-06-59 09:04:00 Test Item Value Reference Range Interpretation Comments Neutrophils # (test code = Neutrophils 2.2 1.5-8.1 #) [facility] [id number] 09:04:00 Test Item Value Reference Range Interpretation Comments Lymphocytes # (test code = Lymphocytes 0.8 1.0-5.5 #) [facility] BudaUzwskuuRZQXIDNGIT1560-15-22 09:04:00 Test Item Value Reference Range Interpretation Comments Monocytes # (test code 0.5 See_Comment [Aut omated message] The = Monocytes #) system which generated this result tra nsmitted reference range : <=0.8. The reference r samantha was not used to int erpret this result as normal/abnormal . [facility] [id number] 09:04:00 Test Item Value Reference Range Interpretation Comments Eosinophils # (test code 0.1 See_Comment [A utomated message] The = Eosinophils #) system whic h generated this result tra nsmitted reference range : <=0.5. The reference r samantha was not used to int erpret this result as normal/abnormal . [facility] BudaShrxsspTDPIDDJHSR6191-25-55 09:04:00 Test Item Value Reference Range Interpretation Comments Macrocyte (test code = 1+ *ABN*(12/15/21 Macrocyte) 4:04 AM) [facility] PasoJubooauDDUWNRFQHW4814-16-07 09:04:00 Test Item Value Reference Range Interpretation Comments C-REACTIVE PROTEIN (test code = 25.1 C-REACTIVE PROTEIN) [facility] PasoS[id number] 09:04:00 Test Item Value Reference Range Interpretation Comments Vanco Lvl (test code = Vanco Lvl) 15.2 [place] 662952-07-18 09:04:00 Test Item Value Reference Range Interpretation Comments Glucose Lvl (test code = Glucose Lvl) 59 70-99 [place] [address]-07-18 09:04:00 Test Item Value Reference Range Interpretation Comments BUN (test code = BUN) 41 7-22 [place] 662952-07-18 09:04:00 Test Item Value Reference Range Interpretation Comments Creatinine Lvl (test code = Creatinine 7.00 0.50-1.40 Lvl) [place] 662952-07-18 09:04:00 Test Item Value Reference Range Interpretation Comments Sodium Lvl (test code = Sodium Lvl) 134 135-145 [place] 662952-07-18 09:04:00 Test Item Value Reference Range Interpretation Comments Potassium Lvl (test code = Potassium 4.0 3.5-5.1 Lvl) [place] 662952-07-18 09:04:00 Test Item Value Reference Range Interpretation Comments Chloride Lvl (test code = Chloride Lvl) 102 95-109 [place] 662952-07-18 09:04:00 Test Item Value Reference Range Interpretation Comments CO2 (test code = CO2) 25 24-32 [place] 662952-07-18 09:04:00 Test Item Value Reference Range Interpretation Comments Calcium Lvl (test code = Calcium Lvl) 9.1 8.5-10.5 [place] 662952-07-18 09:04:00 Test Item Value Reference Range Interpretation Comments Total Protein (test code = Total 6.2 6.4-8.4 Protein) [place] 662952-07-18 09:04:00 Test Item Value Reference Range Interpretation Comments Albumin Lvl (test code = Albumin Lvl) 2.8 3.5-5.0 [place] 662952-07-18 09:04:00 Test Item Value Reference Range Interpretation Comments ALT (test code = ALT) 78 See_Comment [Auto mated message] The system which ge nerated this result transmit swathi reference range : <=65. The reference range was not used to interpr et this result as deny l/abnormal. [facility] [id number] 09:04:00 Test Item Value Reference Range Interpretation Comments AST (test code = AST) 117 See_Comment [Auto mated message] The system which ge nerated this result transmit swathi reference range : <=37. The reference range was not used to interpr et this result as deny l/abnormal. [place] 662952-07-18 09:04:00 Test Item Value Reference Range Interpretation Comments Alk Phos (test code = Alk Phos) 251 39-136 [place] 662952-07-18 09:04:00 Test Item Value Reference Range Interpretation Comments Bili Total (test code = Bili Total) 0.9 0.2-1.3 [place] 662952-07-18 09:04:00 Test Item Value Reference Range Interpretation Comments AGAP (test code = AGAP) 11.0 10.0-20.0 [place] 662952-07-18 09:04:00 Test Item Value Reference Range Interpretation Comments B/C Ratio (test code = B/C Ratio) 6 1 6-25 [place] 662952-07-18 09:04:00 Test Item Value Reference Range Interpretation Comments Globulin (test code = Globulin) 3.4 2.7-4.2 [place] 662952-07-18 09:04:00 Test Item Value Reference Range Interpretation Comments A/G Ratio (test code = A/G Ratio) 0.8 1 0.7-1.6 [place] 662952-07-18 09:04:00 Test Item Value Reference Range Interpretation Comments eGFR (test code = eGFR) 8 [place] 475022-07-18 09:04:00 Test Item Value Reference Range Interpretation Comments D-Dimer (test code = D-Dimer) 3.03 [place] 475022-07-18 09:04:00 Test Item Value Reference Range Interpretation Comments WBC (test code = WBC) 3.6 3.7-10.4 [place] 475022-07-18 09:04:00 Test Item Value Reference Range Interpretation Comments RBC (test code = RBC) 2.07 4.70-6.10 [place] 475022-07-18 09:04:00 Test Item Value Reference Range Interpretation Comments Hgb (test code = Hgb) 7.5 14.0-18.0 [place] 475022-07-18 09:04:00 Test Item Value Reference Range Interpretation Comments Hct (test code = Hct) 22.0 42.0-54.0 [place] 475022-07-18 09:04:00 Test Item Value Reference Range Interpretation Comments MCV (test code = MCV) 106.3 80.0-94.0 [place] 475022-07-18 09:04:00 Test Item Value Reference Range Interpretation Comments MCH (test code = MCH) 36.1 pg 27.0-31.0 [place] 475022-07-18 09:04:00 Test Item Value Reference Range Interpretation Comments MCHC (test code = MCHC) 33.9 32.0-36.0 [place] 475022-07-18 09:04:00 Test Item Value Reference Range Interpretation Comments RDW (test code = RDW) 23.9 11.5-14.5 [place] 475022-07-18 09:04:00 Test Item Value Reference Range Interpretation Comments Platelet (test code = Platelet) 133 133-450 [facility] [id number] 09:04:00 Test Item Value Reference Range Interpretation Comments MPV (test code = MPV) 8.1 7.4-10.4 [place] 475022-07-18 09:04:00 Test Item Value Reference Range Interpretation Comments Segs (test code = Segs) 60.8 45.0-75.0 [place] 475022-07-18 09:04:00 Test Item Value Reference Range Interpretation Comments Lymphocytes (test code = Lymphocytes) 22.3 20.0-40.0 [place] [address]-07-18 09:04:00 Test Item Value Reference Range Interpretation Comments Monocytes (test code = Monocytes) 13.9 2.0-12.0 [place] [address]-07-18 09:04:00 Test Item Value Reference Range Interpretation Comments Eosinophils (test code = 2.6 See_Comment [A utomated message] The Eosinophils) system which ge nerated this result tra nsmitted reference range : <=4.0. The reference r samantha was not used to int erpret this result as normal/abnormal . [facility] PasoTwcsmlwOPHLNMWHUA8945-60-71 09:04:00 Test Item Value Reference Range Interpretation Comments Basophils (test code = 0.4 See_Comment [Aut omated message] The Basophils) system which ge nerated this result tra nsmitted reference range : <=1.0. The reference r samantha was not used to int erpret this result as normal/abnormal . [facility]PddatsbSSTZSVKGSD9539-42-04 09:04:00 Test Item Value Reference Range Interpretation Comments Neutrophils # (test code = Neutrophils 2.2 1.5-8.1 #) [facility] HospitalPvwwptfLMWCKUTJAX8805-62-54 09:04:00 Test Item Value Reference Range Interpretation Comments Lymphocytes # (test code = Lymphocytes 0.8 1.0-5.5 #) [facility] HospitalKwqqjufUIATQLMDWY9862-01-10 09:04:00 Test Item Value Reference Range Interpretation Comments Monocytes # (test code 0.5 See_Comment [Aut omated message] The = Monocytes #) system which generated this result tra nsmitted reference range : <=0.8. The reference r samantha was not used to int erpret this result as normal/abnormal . [facility] HospitalGvvpoqcFDXHCWIGGS1726-72-09 09:04:00 Test Item Value Reference Range Interpretation Comments Eosinophils # (test code 0.1 See_Comment [A utomated message] The = Eosinophils #) system whic h generated this result tra nsmitted reference range : <=0.5. The reference r samantha was not used to int erpret this result as normal/abnormal . [facility] PasoVtmwmitFYLTNDDDNQ7934-06-96 09:04:00 Test Item Value Reference Range Interpretation Comments Macrocyte (test code = 1+ *ABN*(12/15/21 Macrocyte) 4:04 AM) [facility] PasoOxilojgOLVEAFTTGO4911-45-55 09:04:00 Test Item Value Reference Range Interpretation Comments C-REACTIVE PROTEIN (test code = 25.1 C-REACTIVE PROTEIN) [facility] PasoAtthhpsWXWROYRDNP5085-79-17 09:04:00 Test Item Value Reference Range Interpretation Comments Vanco Lvl (test code = Vanco Lvl) 15.2 [facility] PasoBACTERIAL - [id number] 00:29:00 Test Item Value Reference Range Interpretation Comments MRSA by PCR (test Negative (12/14/21 7:29 code = MRSA by PCR) PM) [facility] - [id number] 00:29:00 Test Item Value Reference Range Interpretation Comments MRSA by PCR (test Negative (12/14/21 7:29 code = MRSA by PCR) PM) [facility]BA[facility] - [id number] 00:29:00 Test Item Value Reference Range Interpretation Comments MRSA by PCR (test Negative (12/14/21 7:29 code = MRSA by PCR) PM) [facility]annBA[facility] - [id number] 00:29:00 Test Item Value Reference Range Interpretation Comments MRSA by PCR (test Negative (12/14/21 7:29 code = MRSA by PCR) PM) [facility]annBA[facility] - [id number] 00:29:00 Test Item Value Reference Range Interpretation Comments MRSA by PCR (test Negative (12/14/21 7:29 code = MRSA by PCR) PM) [facility]BA[facility] - [id number] 00:29:00 Test Item Value Reference Range Interpretation Comments MRSA by PCR (test Negative (12/14/21 7:29 code = MRSA by PCR) PM) [facility]BA[facility] - [id number] 00:29:00 Test Item Value Reference Range Interpretation Comments MRSA by PCR (test Negative (12/14/21 7:29 code = MRSA by PCR) PM) [facility]BA[facility] - [id number] 00:29:00 Test Item Value Reference Range Interpretation Comments MRSA by PCR (test Negative (12/14/21 7:29 code = MRSA by PCR) PM) [facility]BA[facility] - [id number] 00:29:00 Test Item Value Reference Range Interpretation Comments MRSA by PCR (test Negative (12/14/21 7:29 code = MRSA by PCR) PM) [facility] [id number] 23:56:00 Test Item Value Reference Range Interpretation Comments Source Respiratory Nasophrngl Swb Panel PCR (test code = *NA*(12/14/21 6:56 PM) Source Respiratory Panel PCR) [facility]annAKLE[facility]ULAR [id number] 23:56:00 Test Item Value Reference Range Interpretation Comments Influenza A PCR (test Negative (12/14/21 6:56 code = Influenza A PCR) PM) [facility] [id number] 23:56:00 Test Item Value Reference Range Interpretation Comments Influenza B PCR (test Negative (12/14/21 6:56 code = Influenza B PCR) PM) [facility]AKLE[facility]ULAR [id number] 23:56:00 Test Item Value Reference Range Interpretation Comments RSV PCR (test code = Negative (12/14/21 6:56 RSV PCR) PM) [facility] [id number] 23:56:00 Test Item Value Reference Range Interpretation Comments Source Respiratory Nasophrngl Swb Panel PCR (test code = *NA*(12/14/21 6:56 PM) Source Respiratory Panel PCR) [facility]AKLECC[facility] [id number] 23:56:00 Test Item Value Reference Range Interpretation Comments Influenza A PCR (test Negative (12/14/21 6:56 code = Influenza A PCR) PM) [facility] [id number] 23:56:00 Test Item Value Reference Range Interpretation Comments Influenza B PCR (test Negative (12/14/21 6:56 code = Influenza B PCR) PM) [facility] [id number] 23:56:00 Test Item Value Reference Range Interpretation Comments RSV PCR (test code = Negative (12/14/21 6:56 RSV PCR) PM) [facility]annAKLE[facility] [id number] 23:56:00 Test Item Value Reference Range Interpretation Comments Source Respiratory Nasophrngl Swb Panel PCR (test code = *NA*(12/14/21 6:56 PM) Source Respiratory Panel PCR) [facility] [id number] 23:56:00 Test Item Value Reference Range Interpretation Comments Influenza A PCR (test Negative (12/14/21 6:56 code = Influenza A PCR) PM) [facility] [id number] 23:56:00 Test Item Value Reference Range Interpretation Comments Influenza B PCR (test Negative (12/14/21 6:56 code = Influenza B PCR) PM) [facility] [id number] 23:56:00 Test Item Value Reference Range Interpretation Comments RSV PCR (test code = Negative (12/14/21 6:56 RSV PCR) PM) [facility] [id number] 23:56:00 Test Item Value Reference Range Interpretation Comments Source Respiratory Nasophrngl Swb Panel PCR (test code = *NA*(12/14/21 6:56 PM) Source Respiratory Panel PCR) [facility] [id number] 23:56:00 Test Item Value Reference Range Interpretation Comments Influenza A PCR (test Negative (12/14/21 6:56 code = Influenza A PCR) PM) [facility] [id number] 23:56:00 Test Item Value Reference Range Interpretation Comments Influenza B PCR (test Negative (12/14/21 6:56 code = Influenza B PCR) PM) [facility] [id number] 23:56:00 Test Item Value Reference Range Interpretation Comments RSV PCR (test code = Negative (12/14/21 6:56 RSV PCR) PM) [facility] [id number] 23:56:00 Test Item Value Reference Range Interpretation Comments Source Respiratory Nasophrngl Swb Panel PCR (test code = *NA*(12/14/21 6:56 PM) Source Respiratory Panel PCR) [facility] [id number] 23:56:00 Test Item Value Reference Range Interpretation Comments Influenza A PCR (test Negative (12/14/21 6:56 code = Influenza A PCR) PM) [facility]AKLECCHERR[facility] [id number] 23:56:00 Test Item Value Reference Range Interpretation Comments Influenza B PCR (test Negative (12/14/21 6:56 code = Influenza B PCR) PM) [facility] [id number] 23:56:00 Test Item Value Reference Range Interpretation Comments RSV PCR (test code = Negative (12/14/21 6:56 RSV PCR) PM) [facility] [id number] 23:56:00 Test Item Value Reference Range Interpretation Comments Source Respiratory Nasophrngl Swb Panel PCR (test code = *NA*(12/14/21 6:56 PM) Source Res[facility] PCR) [facility] [id number] 23:56:00 Test Item Value Reference Range Interpretation Comments Influenza A PCR (test Negative (12/14/21 6:56 code = Influenza A PCR) PM) [facility] [id number] 23:56:00 Test Item Value Reference Range Interpretation Comments Influenza B PCR (test Negative (12/14/21 6:56 code = Influenza B PCR) PM) [facility] [id number] 23:56:00 Test Item Value Reference Range Interpretation Comments RSV PCR (test code = Negative (12/14/21 6:56 RSV PCR) PM) [facility] [id number] 23:56:00 Test Item Value Reference Range Interpretation Comments Source Respiratory Nasophrngl Swb Panel PCR (test code = *NA*(12/14/21 6:56 PM) Source Respiratory Panel PCR) [facility] [id number] 23:56:00 Test Item Value Reference Range Interpretation Comments Influenza A PCR (test Negative (12/14/21 6:56 code = Influenza A PCR) PM) [facility] [id number] 23:56:00 Test Item Value Reference Range Interpretation Comments Influenza B PCR (test Negative (12/14/21 6:56 code = Influenza B PCR) PM) [facility] [id number] 23:56:00 Test Item Value Reference Range Interpretation Comments RSV PCR (test code = Negative (12/14/21 6:56 RSV PCR) PM) [facility] [id number] 23:56:00 Test Item Value Reference Range Interpretation Comments Source Respiratory Nasophrngl Swb Panel PCR (test code = *NA*(12/14/21 6:56 PM) Source Respiratory Panel PCR) [facility] [id number] 23:56:00 Test Item Value Reference Range Interpretation Comments Influenza A PCR (test Negative (12/14/21 6:56 code = Influenza A PCR) PM) [facility] [id number] 23:56:00 Test Item Value Reference Range Interpretation Comments Influenza B PCR (test Negative (12/14/21 6:56 code = Influenza B PCR) PM) [facility] [id number] 23:56:00 Test Item Value Reference Range Interpretation Comments RSV PCR (test code = Negative (12/14/21 6:56 RSV PCR) PM) [facility] [id number] 23:56:00 Test Item Value Reference Range Interpretation Comments Source Respiratory Nasophrngl Swb Panel PCR (test code = *NA*(12/14/21 6:56 PM) Source Respiratory Panel PCR) [facility] [id number] 23:56:00 Test Item Value Reference Range Interpretation Comments Influenza A PCR (test Negative (12/14/21 6:56 code = Influenza A PCR) PM) [facility] [id number] 23:56:00 Test Item Value Reference Range Interpretation Comments Influenza B PCR (test Negative (12/14/21 6:56 code = Influenza B PCR) PM) [facility] [id number] 23:56:00 Test Item Value Reference Range Interpretation Comments RSV PCR (test code = Negative (12/14/21 6:56 RSV PCR) PM) [facility] 23:55:00 Test Item Value Reference Range Interpretation Comments BNP (test code = BNP) 1994 [facility] [employer] [id number] 23:55:00 Test Item Value Reference Range Interpretation Comments Procalcitonin Lvl (test 0.80 See_Comment [Au tomated message] code = Procalcitonin Lvl) e system which generated this result transmitted ref erence range: <=0.10. The reference range was not used to interpr et this result as normal/abnormal . [facility] [employer]2022-07-17 23:55:00 Test Item Value Reference Range Interpretation Comments BNP (test code = BNP) 1994 [facility] [employer] [id number] 23:55:00 Test Item Value Reference Range Interpretation Comments Procalcitonin Lvl (test 0.80 See_Comment [Au tomated message] code = Procalcitonin Lvl) Th e system which generated this result transmitted ref erence range: <=0.10. The reference range was not used to interpr et this result as normal/abnormal . [facility] [employer]2022-07-17 23:55:00 Test Item Value Reference Range Interpretation Comments BNP (test code = BNP) 1994 [facility] [employer]2022-07-17 23:55:00 Test Item Value Reference Range Interpretation Comments Procalcitonin Lvl (test 0.80 See_Comment [Au tomated message] code = Procalcitonin Lvl) e system which generated this result transmitted ref erence range: <=0.10. The reference range was not used to interpr et this result as normal/abnormal . [facility] [employer]2022-07-17 23:55:00 Test Item Value Reference Range Interpretation Comments BNP (test code = BNP) 1994 [facility] [employer] [id number] 23:55:00 Test Item Value Reference Range Interpretation Comments Procalcitonin Lvl (test 0.80 See_Comment [Au tomated message] code = Procalcitonin Lvl) e system which generated this result transmitted ref erence range: <=0.10. The reference range was not used to interpr et this result as normal/abnormal . [facility] [employer]2022-07-17 23:55:00 Test Item Value Reference Range Interpretation Comments BNP (test code = BNP) 1994 [facility] [employer]2022-07-17 23:55:00 Test Item Value Reference Range Interpretation Comments Procalcitonin Lvl (test 0.80 See_Comment [Au tomated message] code = Procalcitonin Lvl) e system which generated this result transmitted ref erence range: <=0.10. The reference range was not used to interpr et this result as normal/abnormal . [facility] [employer]2022-07-17 23:55:00 Test Item Value Reference Range Interpretation Comments BNP (test code = BNP) 1994 [facility] [employer] [id number] 23:55:00 Test Item Value Reference Range Interpretation Comments Procalcitonin Lvl (test 0.80 See_Comment [Au tomated message] code = Procalcitonin Lvl) Th e system which generated this result transmitted ref erence range: <=0.10. The reference range was not used to interpr et this result as normal/abnormal . [facility] [employer]2022-07-17 23:55:00 Test Item Value Reference Range Interpretation Comments BNP (test code = BNP) 1994 [facility] [employer] [id number] 23:55:00 Test Item Value Reference Range Interpretation Comments Procalcitonin Lvl (test 0.80 See_Comment [Au tomated message] code = Procalcitonin Lvl) e system which generated this result transmitted ref erence range: <=0.10. The reference range was not used to interpr et this result as normal/abnormal . [facility] [employer]2022-07-17 23:55:00 Test Item Value Reference Range Interpretation Comments BNP (test code = BNP) 1994 [facility] [employer] [id number] 23:55:00 Test Item Value Reference Range Interpretation Comments Procalcitonin Lvl (test 0.80 See_Comment [Au tomated message] code = Procalcitonin Lvl) e system which generated this result transmitted ref erence range: <=0.10. The reference range was not used to interpr et this result as normal/abnormal . [facility] [employer]2022-07-17 23:55:00 Test Item Value Reference Range Interpretation Comments BNP (test code = BNP) 1994 [facility] [employer] [id number] 23:55:00 Test Item Value Reference Range Interpretation Comments Procalcitonin Lvl (test 0.80 See_Comment [Au tomated message] code = Procalcitonin Lvl) Th e system which generated this result transmitted ref erence range: <=0.10. The reference range was not used to interpr et this result as normal/abnormal . [facility] 21:26:00 Test Item Value Reference Range Interpretation Comments HS Troponin I 1 Hr (test code = HS 389 Troponin I 1 Hr) [facility] 21:26:00 Test Item Value Reference Range Interpretation Comments HS Troponin I 0 to 1 Hour Delta (test 49 1 code = HS Troponin I 0 to 1 Hour Delta) [facility] 21:26:00 Test Item Value Reference Range Interpretation Comments HS Troponin I 1 Hr (test code = HS 389 Troponin I 1 Hr) [facility] 21:26:00 Test Item Value Reference Range Interpretation Comments HS Troponin I 0 to 1 Hour Delta (test 49 1 code = HS Troponin I 0 to 1 Hour Delta) [facility] [id number] 21:26:00 Test Item Value Reference Range Interpretation Comments HS Troponin I 1 Hr (test code = HS 389 Troponin I 1 Hr) [facility]CARDIAC [id number] 21:26:00 Test Item Value Reference Range Interpretation Comments HS Troponin I 0 to 1 Hour Delta (test 49 1 code = HS Troponin I 0 to 1 Hour Delta) [facility]CARDIAC [id number] 21:26:00 Test Item Value Reference Range Interpretation Comments HS Troponin I 1 Hr (test code = HS 389 Troponin I 1 Hr) [facility]CARDIAC [id number] 21:26:00 Test Item Value Reference Range Interpretation Comments HS Troponin I 0 to 1 Hour Delta (test 49 1 code = HS Troponin I 0 to 1 Hour Delta) [facility] [id number] 21:26:00 Test Item Value Reference Range Interpretation Comments HS Troponin I 1 Hr (test code = HS 389 Troponin I 1 Hr) [facility] [id number] 21:26:00 Test Item Value Reference Range Interpretation Comments HS Troponin I 0 to 1 Hour Delta (test 49 1 code = HS Troponin I 0 to 1 Hour Delta) [facility] [id number] 21:26:00 Test Item Value Reference Range Interpretation Comments HS Troponin I 1 Hr (test code = HS 389 Troponin I 1 Hr) [facility] [id number] 21:26:00 Test Item Value Reference Range Interpretation Comments HS Troponin I 0 to 1 Hour Delta (test 49 1 code = HS Troponin I 0 to 1 Hour Delta) [facility] [id number] 21:26:00 Test Item Value Reference Range Interpretation Comments HS Troponin I 1 Hr (test code = HS 389 Troponin I 1 Hr) [facility] [id number] 21:26:00 Test Item Value Reference Range Interpretation Comments HS Troponin I 0 to 1 Hour Delta (test 49 1 code = HS Troponin I 0 to 1 Hour Delta) [facility]annCARDIAC [id number] 21:26:00 Test Item Value Reference Range Interpretation Comments HS Troponin I 1 Hr (test code = HS 389 Troponin I 1 Hr) [facility] [id number] 21:26:00 Test Item Value Reference Range Interpretation Comments HS Troponin I 0 to 1 Hour Delta (test 49 1 code = HS Troponin I 0 to 1 Hour Delta) [facility] [id number] 21:26:00 Test Item Value Reference Range Interpretation Comments HS Troponin I 1 Hr (test code = HS 389 Troponin I 1 Hr) [facility] [id number] 21:26:00 Test Item Value Reference Range Interpretation Comments HS Troponin I 0 to 1 Hour Delta (test 49 1 code = HS Troponin I 0 to 1 Hour Delta) [facility] [id number] 20:10:00 Test Item Value Reference Range Interpretation Comments HS Troponin I Baseline (test code = HS 340 Troponin I Baseline) [facility] [id number] 20:10:00 Test Item Value Reference Range Interpretation Comments Glucose Lvl (test code = Glucose Lvl) 60 70-99 [facility] [id number] 20:10:00 Test Item Value Reference Range Interpretation Comments BUN (test code = BUN) 35 7-22 [facility] [id number] 20:10:00 Test Item Value Reference Range Interpretation Comments Creatinine Lvl (test code = Creatinine 6.10 0.50-1.40 Lvl) [facility] [id number] 20:10:00 Test Item Value Reference Range Interpretation Comments Sodium Lvl (test code = Sodium Lvl) 139 135-145 [facility] [id number] 20:10:00 Test Item Value Reference Range Interpretation Comments Potassium Lvl (test code = Potassium 3.1 3.5-5.1 Lvl) [facility] [id number] 20:10:00 Test Item Value Reference Range Interpretation Comments Chloride Lvl (test code = Chloride Lvl) 105 95-109 [facility] [id number] 20:10:00 Test Item Value Reference Range Interpretation Comments CO2 (test code = CO2) 28 24-32 [facility] [id number] 20:10:00 Test Item Value Reference Range Interpretation Comments Calcium Lvl (test code = Calcium Lvl) 8.1 8.5-10.5 [facility] [id number] 20:10:00 Test Item Value Reference Range Interpretation Comments Total Protein (test code = Total 5.8 6.4-8.4 Protein) [facility]2022-07-17 20:10:00 Test Item Value Reference Range Interpretation Comments Albumin Lvl (test code = Albumin Lvl) 2.6 3.5-5.0 [facility]2022-07-17 20:10:00 Test Item Value Reference Range Interpretation Comments ALT (test code = ALT) 74 See_Comment [Auto mated message] The system which ge nerated this result transmit swathi reference range : <=65. The reference range was not used to interpr et this result as deny l/abnormal. [facility]2022-07-17 20:10:00 Test Item Value Reference Range Interpretation Comments AST (test code = AST) 117 See_Comment [Auto mated message] The system which ge nerated this result transmit swathi reference range : <=37. The reference range was not used to interpr et this result as deny l/abnormal. [facility]2022-07-17 20:10:00 Test Item Value Reference Range Interpretation Comments Alk Phos (test code = Alk Phos) 241 39-136 [facility]2022-07-17 20:10:00 Test Item Value Reference Range Interpretation Comments Bili Total (test code = Bili Total) 0.8 0.2-1.3 [facility]2022-07-17 20:10:00 Test Item Value Reference Range Interpretation Comments AGAP (test code = AGAP) 9.1 10.0-20.0 [facility]2022-07-17 20:10:00 Test Item Value Reference Range Interpretation Comments B/C Ratio (test code = B/C Ratio) 6 1 6-25 [place] [id number] 20:10:00 Test Item Value Reference Range Interpretation Comments Globulin (test code = Globulin) 3.2 2.7-4.2 [facility]2022-07-17 20:10:00 Test Item Value Reference Range Interpretation Comments A/G Ratio (test code = A/G Ratio) 0.8 1 0.7-1.6 [place] 662952-07-17 20:10:00 Test Item Value Reference Range Interpretation Comments eGFR (test code = eGFR) 9 [facility] [id number] 20:10:00 Test Item Value Reference Range Interpretation Comments WBC (test code = WBC) 4.3 3.7-10.4 [id number] 20:10:00 Test Item Value Reference Range Interpretation Comments RBC (test code = RBC) 2.17 4.70-6.10 [facility] [id number] 20:10:00 Test Item Value Reference Range Interpretation Comments Hgb (test code = Hgb) 7.7 14.0-18.0 [facility] [id number] 20:10:00 Test Item Value Reference Range Interpretation Comments Hct (test code = Hct) 22.9 42.0-54.0 [facility] [id number] 20:10:00 Test Item Value Reference Range Interpretation Comments MCV (test code = MCV) 105.9 80.0-94.0 [place] 475022-07-17 20:10:00 Test Item Value Reference Range Interpretation Comments MCH (test code = MCH) 35.4 pg 27.0-31.0 [facility] BudaZthkmkwDUYDPQWOQO4953-21-22 20:10:00 Test Item Value Reference Range Interpretation Comments MCHC (test code = MCHC) 33.4 32.0-36.0 [facility] [id number] 20:10:00 Test Item Value Reference Range Interpretation Comments RDW (test code = RDW) 23.6 11.5-14.5 [facility] [id number] 20:10:00 Test Item Value Reference Range Interpretation Comments Platelet (test code = Platelet) 146 133-450 [facility] [id number] 20:10:00 Test Item Value Reference Range Interpretation Comments MPV (test code = MPV) 8.0 7.4-10.4 [place] 475022-07-17 20:10:00 Test Item Value Reference Range Interpretation Comments Plt Morph (test code = Normal (12/14/21 3:10 Plt Morph) PM) [facility] [id number] 20:10:00 Test Item Value Reference Range Interpretation Comments Segs (test code = Segs) 67.4 45.0-75.0 [facility] [id number] 20:10:00 Test Item Value Reference Range Interpretation Comments Lymphocytes (test code = Lymphocytes) 12.8 20.0-40.0 [facility] [id number] 20:10:00 Test Item Value Reference Range Interpretation Comments Monocytes (test code = Monocytes) 15.1 2.0-12.0 [place] 475022-07-17 20:10:00 Test Item Value Reference Range Interpretation Comments Eosinophils (test code = 4.1 See_Comment [A utomated message] The Eosinophils) system which ge nerated this result tra nsmitted reference range : <=4.0. The reference r samantha was not used to int erpret this result as normal/abnormal . [facility] [id number] 20:10:00 Test Item Value Reference Range Interpretation Comments Basophils (test code = 0.6 See_Comment [Aut omated message] The Basophils) system which ge nerated this result tra nsmitted reference range : <=1.0. The reference r samantha was not used to int erpret this result as normal/abnormal . [facility] [id number] 20:10:00 Test Item Value Reference Range Interpretation Comments Neutrophils # (test code = Neutrophils 2.9 1.5-8.1 #) [facility] [id number] 20:10:00 Test Item Value Reference Range Interpretation Comments Lymphocytes # (test code = Lymphocytes 0.5 1.0-5.5 #) [facility] [id number] 20:10:00 Test Item Value Reference Range Interpretation Comments Monocytes # (test code 0.6 See_Comment [Aut omated message] The = Monocytes #) system which generated this result tra nsmitted reference range : <=0.8. The reference r samantha was not used to int erpret this result as normal/abnormal . [facility] [id number] 20:10:00 Test Item Value Reference Range Interpretation Comments Eosinophils # (test code 0.2 See_Comment [A utomated message] The = Eosinophils #) system whic h generated this result tra nsmitted reference range : <=0.5. The reference r samantha was not used to int erpret this result as normal/abnormal . [facility] [id number] 20:10:00 Test Item Value Reference Range Interpretation Comments Anisocyte (test code = 1+ *ABN*(12/14/21 Anisocyte) 3:10 PM) [facility] [id number] 20:10:00 Test Item Value Reference Range Interpretation Comments Macrocyte (test code = 1+ *ABN*(12/14/21 Macrocyte) 3:10 PM) [facility] PasoEbbhszdHRAYTALKKZ4775-07-23 20:10:00 Test Item Value Reference Range Interpretation Comments Coronavirus (COVID-19) Detected MANUEL (test code = 4*ABN*(12/14/21 3:10 Coronavirus (COVID-19) PM) MANUEL) [facility] PasoCARD[facility] [id number] 20:10:00 Test Item Value Reference Range Interpretation Comments HS Troponin I Baseline (test code = HS 340 Troponin I Baseline) [facility] [id number] 20:10:00 Test Item Value Reference Range Interpretation Comments Glucose Lvl (test code = Glucose Lvl) 60 70-99 [facility]2022-07-17 20:10:00 Test Item Value Reference Range Interpretation Comments BUN (test code = BUN) 35 7-22 [facility]2022-07-17 20:10:00 Test Item Value Reference Range Interpretation Comments Creatinine Lvl (test code = Creatinine 6.10 0.50-1.40 Lvl) [facility]2022-07-17 20:10:00 Test Item Value Reference Range Interpretation Comments Sodium Lvl (test code = Sodium Lvl) 139 135-145 [facility]2022-07-17 20:10:00 Test Item Value Reference Range Interpretation Comments Potassium Lvl (test code = Potassium 3.1 3.5-5.1 Lvl) [facility]2022-07-17 20:10:00 Test Item Value Reference Range Interpretation Comments Chloride Lvl (test code = Chloride Lvl) 105 95-109 [facility]2022-07-17 20:10:00 Test Item Value Reference Range Interpretation Comments CO2 (test code = CO2) 28 24-32 [facility]2022-07-17 20:10:00 Test Item Value Reference Range Interpretation Comments Calcium Lvl (test code = Calcium Lvl) 8.1 8.5-10.5 [facility]2022-07-17 20:10:00 Test Item Value Reference Range Interpretation Comments Total Protein (test code = Total 5.8 6.4-8.4 Protein) [facility] [employer] [id number] 20:10:00 Test Item Value Reference Range Interpretation Comments Albumin Lvl (test code = Albumin Lvl) 2.6 3.5-5.0 [facility] [id number] 20:10:00 Test Item Value Reference Range Interpretation Comments ALT (test code = ALT) 74 See_Comment [Auto mated message] The system which ge nerated this result transmit swathi reference range : <=65. The reference range was not used to interpr et this result as deny l/abnormal. [facility] [employer] [id number] 20:10:00 Test Item Value Reference Range Interpretation Comments AST (test code = AST) 117 See_Comment [Auto mated message] The system which ge nerated this result transmit swathi reference range : <=37. The reference range was not used to interpr et this result as deny l/abnormal. [facility] [employer] [id number] 20:10:00 Test Item Value Reference Range Interpretation Comments Alk Phos (test code = Alk Phos) 241 39-136 [facility] [employer] [id number] 20:10:00 Test Item Value Reference Range Interpretation Comments Bili Total (test code = Bili Total) 0.8 0.2-1.3 [facility] [id number] 20:10:00 Test Item Value Reference Range Interpretation Comments AGAP (test code = AGAP) 9.1 10.0-20.0 [facility] [employer] [id number] 20:10:00 Test Item Value Reference Range Interpretation Comments B/C Ratio (test code = B/C Ratio) 6 1 6-25 [facility] [employer] [id number] 20:10:00 Test Item Value Reference Range Interpretation Comments Globulin (test code = Globulin) 3.2 2.7-4.2 [facility] [employer] [id number] 20:10:00 Test Item Value Reference Range Interpretation Comments A/G Ratio (test code = A/G Ratio) 0.8 1 0.7-1.6 [facility] [employer] [id number] 20:10:00 Test Item Value Reference Range Interpretation Comments eGFR (test code = eGFR) 9 [facility] [id number] 20:10:00 Test Item Value Reference Range Interpretation Comments WBC (test code = WBC) 4.3 3.7-10.4 [facility] [id number] 20:10:00 Test Item Value Reference Range Interpretation Comments RBC (test code = RBC) 2.17 4.70-6.10 [facility] [id number] 20:10:00 Test Item Value Reference Range Interpretation Comments Hgb (test code = Hgb) 7.7 14.0-18.0 [place] 475022-07-17 20:10:00 Test Item Value Reference Range Interpretation Comments Hct (test code = Hct) 22.9 42.0-54.0 [facility]udaQrzzstlZOLGVGVGTC4415-26-47 20:10:00 Test Item Value Reference Range Interpretation Comments MCV (test code = MCV) 105.9 80.0-94.0 [facility]udaQntjtrbNTHFRUQFKI8774-49-85 20:10:00 Test Item Value Reference Range Interpretation Comments MCH (test code = MCH) 35.4 pg 27.0-31.0 [facility] BudaMlnkxzdBNXGPYLZZR3919-84-75 20:10:00 Test Item Value Reference Range Interpretation Comments MCHC (test code = MCHC) 33.4 32.0-36.0 [facility] BudaTcmweodCLHGVLSJCY4934-91-39 20:10:00 Test Item Value Reference Range Interpretation Comments RDW (test code = RDW) 23.6 11.5-14.5 [facility] BudaHnweuarVRIJNXHOSI0137-21-19 20:10:00 Test Item Value Reference Range Interpretation Comments Platelet (test code = Platelet) 146 133-450 [facility] BudaNeinalbNMDLEGDCNC0956-14-21 20:10:00 Test Item Value Reference Range Interpretation Comments MPV (test code = MPV) 8.0 7.4-10.4 [place] 475022-07-17 20:10:00 Test Item Value Reference Range Interpretation Comments Plt Morph (test code = Normal (12/14/21 3:10 Plt Morph) PM) [facility] BudaHdtehxhUPWFSSGMZZ5450-09-25 20:10:00 Test Item Value Reference Range Interpretation Comments Segs (test code = Segs) 67.4 45.0-75.0 [place] 475022-07-17 20:10:00 Test Item Value Reference Range Interpretation Comments Lymphocytes (test code = Lymphocytes) 12.8 20.0-40.0 [place] 475022-07-17 20:10:00 Test Item Value Reference Range Interpretation Comments Monocytes (test code = Monocytes) 15.1 2.0-12.0 [facility] BudaDcbkwaqZBILSLXJVL6860-54-16 20:10:00 Test Item Value Reference Range Interpretation Comments Eosinophils (test code = 4.1 See_Comment [A utomated message] The Eosinophils) system which ge nerated this result tra nsmitted reference range : <=4.0. The reference r samantha was not used to int erpret this result as normal/abnormal . [place] 475022-07-17 20:10:00 Test Item Value Reference Range Interpretation Comments Basophils (test code = 0.6 See_Comment [Aut omated message] The Basophils) system which ge nerated this result tra nsmitted reference range : <=1.0. The reference r samantha was not used to int erpret this result as normal/abnormal . [facility] BudaAdklgkjYUNWKQIRHH8905-32-73 20:10:00 Test Item Value Reference Range Interpretation Comments Neutrophils # (test code = Neutrophils 2.9 1.5-8.1 #) [facility] BudaDcansnfMULUPATLZE1562-32-76 20:10:00 Test Item Value Reference Range Interpretation Comments Lymphocytes # (test code = Lymphocytes 0.5 1.0-5.5 #) [facility] BudaQwonknvLUQLJUWSVQ2795-80-99 20:10:00 Test Item Value Reference Range Interpretation Comments Monocytes # (test code 0.6 See_Comment [Aut omated message] The = Monocytes #) system which generated this result tra nsmitted reference range : <=0.8. The reference r samantha was not used to int erpret this result as normal/abnormal . [place] 475022-07-17 20:10:00 Test Item Value Reference Range Interpretation Comments Eosinophils # (test code 0.2 See_Comment [A utomated message] The = Eosinophils #) system whic h generated this result tra nsmitted reference range : <=0.5. The reference r samantha was not used to int erpret this result as normal/abnormal . [facility] BudaAddfvyfPGPJCUXQBQ0887-70-38 20:10:00 Test Item Value Reference Range Interpretation Comments Anisocyte (test code = 1+ *ABN*(12/14/21 Anisocyte) 3:10 PM) [facility]oLcbqthxZJCMRKUDLS3527-32-66 20:10:00 Test Item Value Reference Range Interpretation Comments Macrocyte (test code = 1+ *ABN*(12/14/21 Macrocyte) 3:10 PM) [facility] PasoKfushvaVUTXDBCEZX3587-37-10 20:10:00 Test Item Value Reference Range Interpretation Comments Coronavirus (COVID-19) Detected MANUEL (test code = 4*ABN*(12/14/21 3:10 Coronavirus (COVID-19) PM) MANUEL) [facility] PasoCARDIAC ECIXJKJ2273-28-54 20:10:00 Test Item Value Reference Range Interpretation Comments HS Troponin I Baseline (test code = HS 340 Troponin I Baseline) [facility]2022-07-17 20:10:00 Test Item Value Reference Range Interpretation Comments Glucose Lvl (test code = Glucose Lvl) 60 70-99 [facility]2022-07-17 20:10:00 Test Item Value Reference Range Interpretation Comments BUN (test code = BUN) 35 7-22 [facility]2022-07-17 20:10:00 Test Item Value Reference Range Interpretation Comments Creatinine Lvl (test code = Creatinine 6.10 0.50-1.40 Lvl) [facility]2022-07-17 20:10:00 Test Item Value Reference Range Interpretation Comments Sodium Lvl (test code = Sodium Lvl) 139 135-145 [facility]2022-07-17 20:10:00 Test Item Value Reference Range Interpretation Comments Potassium Lvl (test code = Potassium 3.1 3.5-5.1 Lvl) [facility]2022-07-17 20:10:00 Test Item Value Reference Range Interpretation Comments Chloride Lvl (test code = Chloride Lvl) 105 95-109 [facility]2022-07-17 20:10:00 Test Item Value Reference Range Interpretation Comments CO2 (test code = CO2) 28 24-32 [facility]2022-07-17 20:10:00 Test Item Value Reference Range Interpretation Comments Calcium Lvl (test code = Calcium Lvl) 8.1 8.5-10.5 [facility]2022-07-17 20:10:00 Test Item Value Reference Range Interpretation Comments Total Protein (test code = Total 5.8 6.4-8.4 Protein) [place] 662952-07-17 20:10:00 Test Item Value Reference Range Interpretation Comments Albumin Lvl (test code = Albumin Lvl) 2.6 3.5-5.0 [facility] [id number] 20:10:00 Test Item Value Reference Range Interpretation Comments ALT (test code = ALT) 74 See_Comment [Auto mated message] The system which ge nerated this result transmit swathi reference range : <=65. The reference range was not used to interpr et this result as deny l/abnormal. [facility] [id number] 20:10:00 Test Item Value Reference Range Interpretation Comments AST (test code = AST) 117 See_Comment [Auto mated message] The system which ge nerated this result transmit swathi reference range : <=37. The reference range was not used to interpr et this result as deny l/abnormal. [facility] [employer] [id number] 20:10:00 Test Item Value Reference Range Interpretation Comments Alk Phos (test code = Alk Phos) 241 39-136 [facility] [employer] [id number] 20:10:00 Test Item Value Reference Range Interpretation Comments Bili Total (test code = Bili Total) 0.8 0.2-1.3 [facility] [id number] 20:10:00 Test Item Value Reference Range Interpretation Comments AGAP (test code = AGAP) 9.1 10.0-20.0 [facility] [employer] [id number] 20:10:00 Test Item Value Reference Range Interpretation Comments B/C Ratio (test code = B/C Ratio) 6 1 6-25 [facility] [id number] 20:10:00 Test Item Value Reference Range Interpretation Comments Globulin (test code = Globulin) 3.2 2.7-4.2 [facility] [id number] 20:10:00 Test Item Value Reference Range Interpretation Comments A/G Ratio (test code = A/G Ratio) 0.8 1 0.7-1.6 [facility] [employer] [id number] 20:10:00 Test Item Value Reference Range Interpretation Comments eGFR (test code = eGFR) 9 [facility]udaBzfvcbrEVMLMFLUPX4649-80-35 20:10:00 Test Item Value Reference Range Interpretation Comments WBC (test code = WBC) 4.3 3.7-10.4 [facility] BudaMrndgewHAQZGFUVHQ5812-98-14 20:10:00 Test Item Value Reference Range Interpretation Comments RBC (test code = RBC) 2.17 4.70-6.10 [facility] BudaEdpgnpdHWQOZRKXZX6055-79-33 20:10:00 Test Item Value Reference Range Interpretation Comments Hgb (test code = Hgb) 7.7 14.0-18.0 [facility] BudaQadatyiTXCINIGTAF6836-13-86 20:10:00 Test Item Value Reference Range Interpretation Comments Hct (test code = Hct) 22.9 42.0-54.0 [facility] BudaLbtudndAZTTQTZKOV2403-06-37 20:10:00 Test Item Value Reference Range Interpretation Comments MCV (test code = MCV) 105.9 80.0-94.0 [place] 475022-07-17 20:10:00 Test Item Value Reference Range Interpretation Comments MCH (test code = MCH) 35.4 pg 27.0-31.0 [facility] BudaRiyqmmeYWXMPEMGHP3551-09-51 20:10:00 Test Item Value Reference Range Interpretation Comments MCHC (test code = MCHC) 33.4 32.0-36.0 [facility] BudaYlphoiiXTFTECBKVC7963-07-55 20:10:00 Test Item Value Reference Range Interpretation Comments RDW (test code = RDW) 23.6 11.5-14.5 [facility] BudaAqorkrbGNVODSJLBH5081-52-68 20:10:00 Test Item Value Reference Range Interpretation Comments Platelet (test code = Platelet) 146 133-450 [facility] BudaXhmtoexNJSVGQUUDL9939-54-50 20:10:00 Test Item Value Reference Range Interpretation Comments MPV (test code = MPV) 8.0 7.4-10.4 [place] 475022-07-17 20:10:00 Test Item Value Reference Range Interpretation Comments Plt Morph (test code = Normal (12/14/21 3:10 Plt Morph) PM) [facility] BudaZwoaqiiZDZVCZSGBS1455-82-73 20:10:00 Test Item Value Reference Range Interpretation Comments Segs (test code = Segs) 67.4 45.0-75.0 [facility] BudaCfqvngxMTYWRMYJBM6740-09-20 20:10:00 Test Item Value Reference Range Interpretation Comments Lymphocytes (test code = Lymphocytes) 12.8 20.0-40.0 [facility] BudaOcyhkjxRZWVKSPDNN9388-22-21 20:10:00 Test Item Value Reference Range Interpretation Comments Monocytes (test code = Monocytes) 15.1 2.0-12.0 [facility] BudaNyckfzoATGXYDLCPM1663-75-78 20:10:00 Test Item Value Reference Range Interpretation Comments Eosinophils (test code = 4.1 See_Comment [A utomated message] The Eosinophils) system which ge nerated this result tra nsmitted reference range : <=4.0. The reference r samantha was not used to int erpret this result as normal/abnormal . [facility] BudaOcefjwrKNVXOQNERE2366-58-40 20:10:00 Test Item Value Reference Range Interpretation Comments Basophils (test code = 0.6 See_Comment [Aut omated message] The Basophils) system which ge nerated this result tra nsmitted reference range : <=1.0. The reference r samantha was not used to int erpret this result as normal/abnormal . [facility] BudaFevasgnAJRRIBMUHB4840-36-16 20:10:00 Test Item Value Reference Range Interpretation Comments Neutrophils # (test code = Neutrophils 2.9 1.5-8.1 #) [facility] BudaIhobdkiAQRYQMVLUF1014-45-63 20:10:00 Test Item Value Reference Range Interpretation Comments Lymphocytes # (test code = Lymphocytes 0.5 1.0-5.5 #) [facility] BudaBsrgowfSCBIYCIUDE7208-22-22 20:10:00 Test Item Value Reference Range Interpretation Comments Monocytes # (test code 0.6 See_Comment [Aut omated message] The = Monocytes #) system which generated this result tra nsmitted reference range : <=0.8. The reference r samantha was not used to int erpret this result as normal/abnormal . [facility] BudaSsxtnqbTAMIZTQNJQ4463-68-77 20:10:00 Test Item Value Reference Range Interpretation Comments Eosinophils # (test code 0.2 See_Comment [A utomated message] The = Eosinophils #) system whic h generated this result tra nsmitted reference range : <=0.5. The reference r samantha was not used to int erpret this result as normal/abnormal . [facility] BudaBedanksXDQNMHSDPC0214-42-43 20:10:00 Test Item Value Reference Range Interpretation Comments Anisocyte (test code = 1+ *ABN*(12/14/21 Anisocyte) 3:10 PM) [facility] PasoIuypemmKEEJDHBTCL0878-11-61 20:10:00 Test Item Value Reference Range Interpretation Comments Macrocyte (test code = 1+ *ABN*(12/14/21 Macrocyte) 3:10 PM) [facility] PasoUfhnfzcAJLQMVLLLL4121-53-33 20:10:00 Test Item Value Reference Range Interpretation Comments Coronavirus (COVID-19) Detected MANUEL (test code = 4*ABN*(12/14/21 3:10 Coronavirus (COVID-19) PM) MANUEL) [facility] PasoCARDIAC [id number] 20:10:00 Test Item Value Reference Range Interpretation Comments HS Troponin I Baseline (test code = HS 340 Troponin I Baseline) [facility]2022-07-17 20:10:00 Test Item Value Reference Range Interpretation Comments Glucose Lvl (test code = Glucose Lvl) 60 70-99 [facility]2022-07-17 20:10:00 Test Item Value Reference Range Interpretation Comments BUN (test code = BUN) 35 7-22 [facility]2022-07-17 20:10:00 Test Item Value Reference Range Interpretation Comments Creatinine Lvl (test code = Creatinine 6.10 0.50-1.40 Lvl) [facility]2022-07-17 20:10:00 Test Item Value Reference Range Interpretation Comments Sodium Lvl (test code = Sodium Lvl) 139 135-145 [facility]2022-07-17 20:10:00 Test Item Value Reference Range Interpretation Comments Potassium Lvl (test code = Potassium 3.1 3.5-5.1 Lvl) [facility]2022-07-17 20:10:00 Test Item Value Reference Range Interpretation Comments Chloride Lvl (test code = Chloride Lvl) 105 95-109 [facility]2022-07-17 20:10:00 Test Item Value Reference Range Interpretation Comments CO2 (test code = CO2) 28 24-32 [facility]2022-07-17 20:10:00 Test Item Value Reference Range Interpretation Comments Calcium Lvl (test code = Calcium Lvl) 8.1 8.5-10.5 [facility]2022-07-17 20:10:00 Test Item Value Reference Range Interpretation Comments Total Protein (test code = Total 5.8 6.4-8.4 Protein) [facility]2022-07-17 20:10:00 Test Item Value Reference Range Interpretation Comments Albumin Lvl (test code = Albumin Lvl) 2.6 3.5-5.0 [place] 662952-07-17 20:10:00 Test Item Value Reference Range Interpretation Comments ALT (test code = ALT) 74 See_Comment [Auto mated message] The system which ge nerated this result transmit swathi reference range : <=65. The reference range was not used to interpr et this result as deny l/abnormal. [facility]2022-07-17 20:10:00 Test Item Value Reference Range Interpretation Comments AST (test code = AST) 117 See_Comment [Auto mated message] The system which ge nerated this result transmit swathi reference range : <=37. The reference range was not used to interpr et this result as deny l/abnormal. [facility] [id number] 20:10:00 Test Item Value Reference Range Interpretation Comments Alk Phos (test code = Alk Phos) 241 39-136 [facility] [id number] 20:10:00 Test Item Value Reference Range Interpretation Comments Bili Total (test code = Bili Total) 0.8 0.2-1.3 [facility] PasoCARDIAC [id number] 20:10:00 Test Item Value Reference Range Interpretation Comments HS Troponin I Baseline (test code = HS 340 Troponin I Baseline) [facility] [id number] 20:10:00 Test Item Value Reference Range Interpretation Comments Glucose Lvl (test code = Glucose Lvl) 60 70-99 [facility] [id number] 20:10:00 Test Item Value Reference Range Interpretation Comments BUN (test code = BUN) 35 7-22 [place] 662952-07-17 20:10:00 Test Item Value Reference Range Interpretation Comments Creatinine Lvl (test code = Creatinine 6.10 0.50-1.40 Lvl) [facility]2022-07-17 20:10:00 Test Item Value Reference Range Interpretation Comments Sodium Lvl (test code = Sodium Lvl) 139 135-145 [place] 662952-07-17 20:10:00 Test Item Value Reference Range Interpretation Comments Potassium Lvl (test code = Potassium 3.1 3.5-5.1 Lvl) [place] 662952-07-17 20:10:00 Test Item Value Reference Range Interpretation Comments AGAP (test code = AGAP) 9.1 10.0-20.0 [place] 662952-07-17 20:10:00 Test Item Value Reference Range Interpretation Comments Chloride Lvl (test code = Chloride Lvl) 105 95-109 [place] 662952-07-17 20:10:00 Test Item Value Reference Range Interpretation Comments CO2 (test code = CO2) 28 24-32 [place] 662952-07-17 20:10:00 Test Item Value Reference Range Interpretation Comments Calcium Lvl (test code = Calcium Lvl) 8.1 8.5-10.5 [place] 662952-07-17 20:10:00 Test Item Value Reference Range Interpretation Comments Total Protein (test code = Total 5.8 6.4-8.4 Protein) [place] 662952-07-17 20:10:00 Test Item Value Reference Range Interpretation Comments Albumin Lvl (test code = Albumin Lvl) 2.6 3.5-5.0 [place] 662952-07-17 20:10:00 Test Item Value Reference Range Interpretation Comments ALT (test code = ALT) 74 See_Comment [Auto mated message] The system which Aut[employer] nerated this result transmit swathi reference range : <=65. The reference range was not used to interpr et this result as deny l/abnormal. [place] 662952-07-17 20:10:00 Test Item Value Reference Range Interpretation Comments AST (test code = AST) 117 See_Comment [Auto mated message] The system which Aut[employer] nerated this result transmit swathi reference range : <=37. The reference range was not used to interpr et this result as deny l/abnormal. [place] 662952-07-17 20:10:00 Test Item Value Reference Range Interpretation Comments Alk Phos (test code = Alk Phos) 241 39-136 [place] 662952-07-17 20:10:00 Test Item Value Reference Range Interpretation Comments Bili Total (test code = Bili Total) 0.8 0.2-1.3 [place] 662952-07-17 20:10:00 Test Item Value Reference Range Interpretation Comments AGAP (test code = AGAP) 9.1 10.0-20.0 [place] 662952-07-17 20:10:00 Test Item Value Reference Range Interpretation Comments B/C Ratio (test code = B/C Ratio) 6 1 - [facility]2022-07-17 20:10:00 Test Item Value Reference Range Interpretation Comments B/C Ratio (test code = B/C Ratio) 6 1 11-22 [place] 662952-07-17 20:10:00 Test Item Value Reference Range Interpretation Comments Globulin (test code = Globulin) 3.2 2.7-4.2 [place] 662952-07-17 20:10:00 Test Item Value Reference Range Interpretation Comments A/G Ratio (test code = A/G Ratio) 0.8 1 0.7-1.6 [place] 662952-07-17 20:10:00 Test Item Value Reference Range Interpretation Comments eGFR (test code = eGFR) 9 [facility] BudaKvdabcjWZMYJRFYNN6832-71-90 20:10:00 Test Item Value Reference Range Interpretation Comments WBC (test code = WBC) 4.3 3.7-10.4 [place] 475022-07-17 20:10:00 Test Item Value Reference Range Interpretation Comments RBC (test code = RBC) 2.17 4.70-6.10 [place] 475022-07-17 20:10:00 Test Item Value Reference Range Interpretation Comments Hgb (test code = Hgb) 7.7 14.0-18.0 [place] [address]-07-17 20:10:00 Test Item Value Reference Range Interpretation Comments Hct (test code = Hct) 22.9 42.0-54.0 [place] [address]-07-17 20:10:00 Test Item Value Reference Range Interpretation Comments MCV (test code = MCV) 105.9 80.0-94.0 [place] 475022-07-17 20:10:00 Test Item Value Reference Range Interpretation Comments MCH (test code = MCH) 35.4 pg 27.0-31.0 [facility] [id number] 20:10:00 Test Item Value Reference Range Interpretation Comments Globulin (test code = Globulin) 3.2 2.7-4.2 [facility] BudaAzdrkapDZBEMXLNHS0253-56-06 20:10:00 Test Item Value Reference Range Interpretation Comments MCHC (test code = MCHC) 33.4 32.0-36.0 [facility] BudaSfglaqaXBAANZFXLL8621-51-39 20:10:00 Test Item Value Reference Range Interpretation Comments RDW (test code = RDW) 23.6 11.5-14.5 [facility] BudaQgnukebYFTNFGBZRZ9439-19-44 20:10:00 Test Item Value Reference Range Interpretation Comments Platelet (test code = Platelet) 146 133-450 [facility] BudaZcwkgbjIUOANSDDDC2914-22-54 20:10:00 Test Item Value Reference Range Interpretation Comments MPV (test code = MPV) 8.0 7.4-10.4 [facility] BudaGxxdyqzEDTZFXCFUS7004-61-31 20:10:00 Test Item Value Reference Range Interpretation Comments Plt Morph (test code = Normal (12/14/21 3:10 Plt Morph) PM) [facility] BudaEsavjddYLCRATZVPY3824-27-93 20:10:00 Test Item Value Reference Range Interpretation Comments Segs (test code = Segs) 67.4 45.0-75.0 [place] 475022-07-17 20:10:00 Test Item Value Reference Range Interpretation Comments Lymphocytes (test code = Lymphocytes) 12.8 20.0-40.0 [place] 475022-07-17 20:10:00 Test Item Value Reference Range Interpretation Comments Monocytes (test code = Monocytes) 15.1 2.0-12.0 [place] 475022-07-17 20:10:00 Test Item Value Reference Range Interpretation Comments Eosinophils (test code = 4.1 See_Comment [A utomated message] The Eosinophils) system which ge nerated this result tra nsmitted reference range : <=4.0. The reference r samantha was not used to int erpret this result as normal/abnormal . [facility] BudaMqyoxtzSTOEXVGSEE0205-20-25 20:10:00 Test Item Value Reference Range Interpretation Comments Basophils (test code = 0.6 See_Comment [Aut omated message] The Basophils) system which ge nerated this result tra nsmitted reference range : <=1.0. The reference r samantha was not used to int erpret this result as normal/abnormal . [facility]2022-07-17 20:10:00 Test Item Value Reference Range Interpretation Comments A/G Ratio (test code = A/G Ratio) 0.8 1 0.7-1.6 [facility] BudaSddbxnkGJJEEMZFIW0948-60-33 20:10:00 Test Item Value Reference Range Interpretation Comments Neutrophils # (test code = Neutrophils 2.9 1.5-8.1 #) [facility] BudaOezwkggCCAHFEPERK2212-26-48 20:10:00 Test Item Value Reference Range Interpretation Comments Lymphocytes # (test code = Lymphocytes 0.5 1.0-5.5 #) [facility] BudaFagnukpJMVAZUHSWB7742-08-06 20:10:00 Test Item Value Reference Range Interpretation Comments Monocytes # (test code 0.6 See_Comment [Aut omated message] The = Monocytes #) system which generated this result tra nsmitted reference range : <=0.8. The reference r samantha was not used to int erpret this result as normal/abnormal . [facility] BudaAiklzpvCZVUXMFWGQ6452-00-26 20:10:00 Test Item Value Reference Range Interpretation Comments Eosinophils # (test code 0.2 See_Comment [A utomated message] The = Eosinophils #) system whic h generated this result tra nsmitted reference range : <=0.5. The reference r samantha was not used to int erpret this result as normal/abnormal . [facility] BudaSojradqJSKOVGBPZI8302-57-67 20:10:00 Test Item Value Reference Range Interpretation Comments Anisocyte (test code = 1+ *ABN*(12/14/21 Anisocyte) 3:10 PM) [facility] BudaJunwdzbYWKTKPSIPZ6112-84-58 20:10:00 Test Item Value Reference Range Interpretation Comments Macrocyte (test code = 1+ *ABN*(12/14/21 Macrocyte) 3:10 PM) [facility] PasoVvcfvacUFJVUZQOVA1061-50-39 20:10:00 Test Item Value Reference Range Interpretation Comments Coronavirus (COVID-19) Detected MANUEL (test code = 4*ABN*(12/14/21 3:10 Coronavirus (COVID-19) PM) MANUEL) [facility]2022-07-17 20:10:00 Test Item Value Reference Range Interpretation Comments eGFR (test code = eGFR) 9 [facility] BudaCgnvpxlZHIRQJNKHK4421-27-36 20:10:00 Test Item Value Reference Range Interpretation Comments WBC (test code = WBC) 4.3 3.7-10.4 [facility] BudaAtzpuhxYJYZZMOKKK5681-42-57 20:10:00 Test Item Value Reference Range Interpretation Comments RBC (test code = RBC) 2.17 4.70-6.10 [facility] BudaMifismxSGSRWZWEGF6114-81-65 20:10:00 Test Item Value Reference Range Interpretation Comments Hgb (test code = Hgb) 7.7 14.0-18.0 [facility] BudaOkzzalwSKQSUOGWTZ0433-44-66 20:10:00 Test Item Value Reference Range Interpretation Comments Hct (test code = Hct) 22.9 42.0-54.0 [facility] BudaVthbvgiZWZPHNGDVH9750-73-54 20:10:00 Test Item Value Reference Range Interpretation Comments MCV (test code = MCV) 105.9 80.0-94.0 [facility] BudaNdoimkpUZDCEFAKDR1224-97-70 20:10:00 Test Item Value Reference Range Interpretation Comments MCH (test code = MCH) 35.4 pg 27.0-31.0 [facility] BudaGfxfitcPKOMGLQTFX3213-08-60 20:10:00 Test Item Value Reference Range Interpretation Comments MCHC (test code = MCHC) 33.4 32.0-36.0 [facility] BudaIutqynuMQMRCFOGWT7010-02-52 20:10:00 Test Item Value Reference Range Interpretation Comments RDW (test code = RDW) 23.6 11.5-14.5 [facility] BudaEebcfnyMLXBAQREMO1243-22-99 20:10:00 Test Item Value Reference Range Interpretation Comments Platelet (test code = Platelet) 146 133-450 [facility] BudaQhsmuovCQBNYCJBTR7244-23-95 20:10:00 Test Item Value Reference Range Interpretation Comments MPV (test code = MPV) 8.0 7.4-10.4 [place] 475022-07-17 20:10:00 Test Item Value Reference Range Interpretation Comments Plt Morph (test code = Normal (12/14/21 3:10 Plt Morph) PM) [facility] BudaEdvhtfmKUEQOAZMWR1379-79-25 20:10:00 Test Item Value Reference Range Interpretation Comments Segs (test code = Segs) 67.4 45.0-75.0 [place] 475022-07-17 20:10:00 Test Item Value Reference Range Interpretation Comments Lymphocytes (test code = Lymphocytes) 12.8 20.0-40.0 [place] 475022-07-17 20:10:00 Test Item Value Reference Range Interpretation Comments Monocytes (test code = Monocytes) 15.1 2.0-12.0 [place] 475022-07-17 20:10:00 Test Item Value Reference Range Interpretation Comments Eosinophils (test code = 4.1 See_Comment [A utomated message] The Eosinophils) system which ge nerated this result tra nsmitted reference range : <=4.0. The reference r samantha was not used to int erpret this result as normal/abnormal . [place] 475022-07-17 20:10:00 Test Item Value Reference Range Interpretation Comments Basophils (test code = 0.6 See_Comment [Aut omated message] The Basophils) system which ge nerated this result tra nsmitted reference range : <=1.0. The reference r samantha was not used to int erpret this result as normal/abnormal . [facility] BudaMyinylwXQBOGRGGCD2603-51-07 20:10:00 Test Item Value Reference Range Interpretation Comments Neutrophils # (test code = Neutrophils 2.9 1.5-8.1 #) [place] 475022-07-17 20:10:00 Test Item Value Reference Range Interpretation Comments Lymphocytes # (test code = Lymphocytes 0.5 1.0-5.5 #) [place] 475022-07-17 20:10:00 Test Item Value Reference Range Interpretation Comments Monocytes # (test code 0.6 See_Comment [Aut omated message] The = Monocytes #) system which generated this result tra nsmitted reference range : <=0.8. The reference r samantha was not used to int erpret this result as normal/abnormal . [place] 475022-07-17 20:10:00 Test Item Value Reference Range Interpretation Comments Eosinophils # (test code 0.2 See_Comment [A utomated message] The = Eosinophils #) system wh h generated this result tra nsmitted reference range : <=0.5. The reference r samantha was not used to int erpret this result as normal/abnormal . [facility]RozqclzRLIJWMZEAW2290-99-51 20:10:00 Test Item Value Reference Range Interpretation Comments Anisocyte (test code = 1+ *ABN*(12/14/21 Anisocyte) 3:10 PM) [facility] HospitalLafyvslCBVTLQDBRE2227-92-12 20:10:00 Test Item Value Reference Range Interpretation Comments Macrocyte (test code = 1+ *ABN*(12/14/21 Macrocyte) 3:10 PM) [facility] PasoLylnzsmWYQHGFGJGR9883-57-12 20:10:00 Test Item Value Reference Range Interpretation Comments Coronavirus (COVID-19) Detected MANUEL (test code = 4*ABN*(12/14/21 3:10 Coronavirus (COVID-19) PM) MANUEL) [facility] PasoCARDIAC [id number] 20:10:00 Test Item Value Reference Range Interpretation Comments HS Troponin I Baseline (test code = HS 340 Troponin I Baseline) [facility]2022-07-17 20:10:00 Test Item Value Reference Range Interpretation Comments Glucose Lvl (test code = Glucose Lvl) 60 70-99 [facility]2022-07-17 20:10:00 Test Item Value Reference Range Interpretation Comments BUN (test code = BUN) 35 7-22 [facility]2022-07-17 20:10:00 Test Item Value Reference Range Interpretation Comments Creatinine Lvl (test code = Creatinine 6.10 0.50-1.40 Lvl) [facility]2022-07-17 20:10:00 Test Item Value Reference Range Interpretation Comments Sodium Lvl (test code = Sodium Lvl) 139 135-145 [facility]2022-07-17 20:10:00 Test Item Value Reference Range Interpretation Comments Potassium Lvl (test code = Potassium 3.1 3.5-5.1 Lvl) [facility]2022-07-17 20:10:00 Test Item Value Reference Range Interpretation Comments Chloride Lvl (test code = Chloride Lvl) 105 95-109 [facility]2022-07-17 20:10:00 Test Item Value Reference Range Interpretation Comments CO2 (test code = CO2) 28 24-32 [facility]2022-07-17 20:10:00 Test Item Value Reference Range Interpretation Comments Calcium Lvl (test code = Calcium Lvl) 8.1 8.5-10.5 [place] 662952-07-17 20:10:00 Test Item Value Reference Range Interpretation Comments Total Protein (test code = Total 5.8 6.4-8.4 Protein) [place] 662952-07-17 20:10:00 Test Item Value Reference Range Interpretation Comments Albumin Lvl (test code = Albumin Lvl) 2.6 3.5-5.0 [place] 662952-07-17 20:10:00 Test Item Value Reference Range Interpretation Comments ALT (test code = ALT) 74 See_Comment [Auto mated message] The system which ge nerated this result transmit swathi reference range : <=65. The reference range was not used to interpr et this result as deny l/abnormal. [place] 662952-07-17 20:10:00 Test Item Value Reference Range Interpretation Comments AST (test code = AST) 117 See_Comment [Auto mated message] The system which ge nerated this result transmit swathi reference range : <=37. The reference range was not used to interpr et this result as deny l/abnormal. [place] 662952-07-17 20:10:00 Test Item Value Reference Range Interpretation Comments Alk Phos (test code = Alk Phos) 241 39-136 [place] 662952-07-17 20:10:00 Test Item Value Reference Range Interpretation Comments Bili Total (test code = Bili Total) 0.8 0.2-1.3 [place] 662952-07-17 20:10:00 Test Item Value Reference Range Interpretation Comments AGAP (test code = AGAP) 9.1 10.0-20.0 [place] 662952-07-17 20:10:00 Test Item Value Reference Range Interpretation Comments B/C Ratio (test code = B/C Ratio) 6 1 6-25 [place] 662952-07-17 20:10:00 Test Item Value Reference Range Interpretation Comments Globulin (test code = Globulin) 3.2 2.7-4.2 [place] 662952-07-17 20:10:00 Test Item Value Reference Range Interpretation Comments A/G Ratio (test code = A/G Ratio) 0.8 1 0.7-1.6 [facility]2022-07-17 20:10:00 Test Item Value Reference Range Interpretation Comments eGFR (test code = eGFR) 9 [facility] BudaQroseiqADAPUSHDDM5449-89-77 20:10:00 Test Item Value Reference Range Interpretation Comments WBC (test code = WBC) 4.3 3.7-10.4 [place] 475022-07-17 20:10:00 Test Item Value Reference Range Interpretation Comments RBC (test code = RBC) 2.17 4.70-6.10 [facility] BudaQwunwgqICWADUPKPN6335-85-84 20:10:00 Test Item Value Reference Range Interpretation Comments Hgb (test code = Hgb) 7.7 14.0-18.0 [place] 475022-07-17 20:10:00 Test Item Value Reference Range Interpretation Comments Hct (test code = Hct) 22.9 42.0-54.0 [place] 475022-07-17 20:10:00 Test Item Value Reference Range Interpretation Comments MCV (test code = MCV) 105.9 80.0-94.0 [place] 475022-07-17 20:10:00 Test Item Value Reference Range Interpretation Comments MCH (test code = MCH) 35.4 pg 27.0-31.0 [facility] BudaXhlhgtjLNFSULQKED8305-93-97 20:10:00 Test Item Value Reference Range Interpretation Comments MCHC (test code = MCHC) 33.4 32.0-36.0 [facility] BudaKqgeoqyBHXHEIRRTU5013-34-29 20:10:00 Test Item Value Reference Range Interpretation Comments RDW (test code = RDW) 23.6 11.5-14.5 [place] 475022-07-17 20:10:00 Test Item Value Reference Range Interpretation Comments Platelet (test code = Platelet) 146 133-450 [facility] BudaUwjtaegJOXDRNDVTF4573-25-08 20:10:00 Test Item Value Reference Range Interpretation Comments MPV (test code = MPV) 8.0 7.4-10.4 [place] 475022-07-17 20:10:00 Test Item Value Reference Range Interpretation Comments Plt Morph (test code = Normal (12/14/21 3:10 Plt Morph) PM) [facility] BudaKownkzrITQYKBXJAA4533-98-73 20:10:00 Test Item Value Reference Range Interpretation Comments Segs (test code = Segs) 67.4 45.0-75.0 [place] 475022-07-17 20:10:00 Test Item Value Reference Range Interpretation Comments Lymphocytes (test code = Lymphocytes) 12.8 20.0-40.0 [place] 475022-07-17 20:10:00 Test Item Value Reference Range Interpretation Comments Monocytes (test code = Monocytes) 15.1 2.0-12.0 [facility] BudaIfmttslGFVMZYLQMN2134-16-21 20:10:00 Test Item Value Reference Range Interpretation Comments Eosinophils (test code = 4.1 See_Comment [A utomated message] The Eosinophils) system which ge nerated this result tra nsmitted reference range : <=4.0. The reference r samantha was not used to int erpret this result as normal/abnormal . [place] 475022-07-17 20:10:00 Test Item Value Reference Range Interpretation Comments Basophils (test code = 0.6 See_Comment [Aut omated message] The Basophils) system which ge nerated this result tra nsmitted reference range : <=1.0. The reference r samantha was not used to int erpret this result as normal/abnormal . [facility] BudaIkltxdyUEHBEVSHRG2724-55-27 20:10:00 Test Item Value Reference Range Interpretation Comments Neutrophils # (test code = Neutrophils 2.9 1.5-8.1 #) [facility] BudaIcygypuZXKPZVISDC8031-00-37 20:10:00 Test Item Value Reference Range Interpretation Comments Lymphocytes # (test code = Lymphocytes 0.5 1.0-5.5 #) [place] 475022-07-17 20:10:00 Test Item Value Reference Range Interpretation Comments Monocytes # (test code 0.6 See_Comment [Aut omated message] The = Monocytes #) system which generated this result tra nsmitted reference range : <=0.8. The reference r samantha was not used to int erpret this result as normal/abnormal . [place] 475022-07-17 20:10:00 Test Item Value Reference Range Interpretation Comments Eosinophils # (test code 0.2 See_Comment [A utomated message] The = Eosinophils #) system whic h generated this result tra nsmitted reference range : <=0.5. The reference r samantha was not used to int erpret this result as normal/abnormal . [facility] PasoRtmevqpHHFGHQKSIB2943-65-53 20:10:00 Test Item Value Reference Range Interpretation Comments Anisocyte (test code = 1+ *ABN*(12/14/21 Anisocyte) 3:10 PM) [facility] HospitalGbrlemoFSFRVZLMVQ0512-15-51 20:10:00 Test Item Value Reference Range Interpretation Comments Macrocyte (test code = 1+ *ABN*(12/14/21 Macrocyte) 3:10 PM) [facility] PasoZgcongmCIINSUQLNG0223-09-37 20:10:00 Test Item Value Reference Range Interpretation Comments Coronavirus (COVID-19) Detected MANUEL (test code = 4*ABN*(12/14/21 3:10 Coronavirus (COVID-19) PM) MANUEL) [facility] PasoCARDIAC [id number] 20:10:00 Test Item Value Reference Range Interpretation Comments HS Troponin I Baseline (test code = HS 340 Troponin I Baseline) [facility]2022-07-17 20:10:00 Test Item Value Reference Range Interpretation Comments Glucose Lvl (test code = Glucose Lvl) 60 70-99 [facility]2022-07-17 20:10:00 Test Item Value Reference Range Interpretation Comments BUN (test code = BUN) 35 7-22 [facility]2022-07-17 20:10:00 Test Item Value Reference Range Interpretation Comments Creatinine Lvl (test code = Creatinine 6.10 0.50-1.40 Lvl) [facility]2022-07-17 20:10:00 Test Item Value Reference Range Interpretation Comments Sodium Lvl (test code = Sodium Lvl) 139 135-145 [facility]2022-07-17 20:10:00 Test Item Value Reference Range Interpretation Comments Potassium Lvl (test code = Potassium 3.1 3.5-5.1 Lvl) [facility]2022-07-17 20:10:00 Test Item Value Reference Range Interpretation Comments Chloride Lvl (test code = Chloride Lvl) 105 95-109 [facility]2022-07-17 20:10:00 Test Item Value Reference Range Interpretation Comments CO2 (test code = CO2) 28 24-32 [facility]2022-07-17 20:10:00 Test Item Value Reference Range Interpretation Comments Calcium Lvl (test code = Calcium Lvl) 8.1 8.5-10.5 [place] 662952-07-17 20:10:00 Test Item Value Reference Range Interpretation Comments Total Protein (test code = Total 5.8 6.4-8.4 Protein) [place] 662952-07-17 20:10:00 Test Item Value Reference Range Interpretation Comments Albumin Lvl (test code = Albumin Lvl) 2.6 3.5-5.0 [facility] [id number] 20:10:00 Test Item Value Reference Range Interpretation Comments ALT (test code = ALT) 74 See_Comment [Auto mated message] The system which ge nerated this result transmit swathi reference range : <=65. The reference range was not used to interpr et this result as deny l/abnormal. [facility] PasoSoloingles.[employer] [id number] 20:10:00 Test Item Value Reference Range Interpretation Comments AST (test code = AST) 117 See_Comment [Auto mated message] The system which ge nerated this result transmit swathi reference range : <=37. The reference range was not used to interpr et this result as deny l/abnormal. [facility] [id number] 20:10:00 Test Item Value Reference Range Interpretation Comments Alk Phos (test code = Alk Phos) 241 39-136 [facility] [id number] 20:10:00 Test Item Value Reference Range Interpretation Comments Bili Total (test code = Bili Total) 0.8 0.2-1.3 [facility] [id number] 20:10:00 Test Item Value Reference Range Interpretation Comments AGAP (test code = AGAP) 9.1 10.0-20.0 [facility] [id number] 20:10:00 Test Item Value Reference Range Interpretation Comments B/C Ratio (test code = B/C Ratio) 6 1 6-25 [facility] [id number] 20:10:00 Test Item Value Reference Range Interpretation Comments Globulin (test code = Globulin) 3.2 2.7-4.2 [facility] OQMST2027-12-17 20:10:00 Test Item Value Reference Range Interpretation Comments A/G Ratio (test code = A/G Ratio) 0.8 1 0.7-1.6 [facility]2022-07-17 20:10:00 Test Item Value Reference Range Interpretation Comments eGFR (test code = eGFR) 9 [facility] BudaHviumeiUYTSZXJMPK9826-71-26 20:10:00 Test Item Value Reference Range Interpretation Comments WBC (test code = WBC) 4.3 3.7-10.4 [place] 475022-07-17 20:10:00 Test Item Value Reference Range Interpretation Comments RBC (test code = RBC) 2.17 4.70-6.10 [facility] BudaUglndbyJUFBCTVOJI9282-52-40 20:10:00 Test Item Value Reference Range Interpretation Comments Hgb (test code = Hgb) 7.7 14.0-18.0 [place] 475022-07-17 20:10:00 Test Item Value Reference Range Interpretation Comments Hct (test code = Hct) 22.9 42.0-54.0 [facility] BudaElqkvvaZYNNWEMTKS3262-79-34 20:10:00 Test Item Value Reference Range Interpretation Comments MCV (test code = MCV) 105.9 80.0-94.0 [place] 475022-07-17 20:10:00 Test Item Value Reference Range Interpretation Comments MCH (test code = MCH) 35.4 pg 27.0-31.0 [facility] BudaDailpqlBBMMCAFGIA7234-01-81 20:10:00 Test Item Value Reference Range Interpretation Comments MCHC (test code = MCHC) 33.4 32.0-36.0 [facility] BudaRlblvjjGBKJKJPKQX7945-75-00 20:10:00 Test Item Value Reference Range Interpretation Comments RDW (test code = RDW) 23.6 11.5-14.5 [place] 475022-07-17 20:10:00 Test Item Value Reference Range Interpretation Comments Platelet (test code = Platelet) 146 133-450 [facility] BudaDsrvjxxNTYJAKQXAC9986-43-98 20:10:00 Test Item Value Reference Range Interpretation Comments MPV (test code = MPV) 8.0 7.4-10.4 [place] 475022-07-17 20:10:00 Test Item Value Reference Range Interpretation Comments Plt Morph (test code = Normal (12/14/21 3:10 Plt Morph) PM) [facility] BudaJwfljupMWWWXSBCLU5527-62-81 20:10:00 Test Item Value Reference Range Interpretation Comments Segs (test code = Segs) 67.4 45.0-75.0 [facility] BudaGrdhlsaXXZEGXCPRN5843-31-91 20:10:00 Test Item Value Reference Range Interpretation Comments Lymphocytes (test code = Lymphocytes) 12.8 20.0-40.0 [facility] BudaTfjmlwoQXBZSSPRZN5695-61-74 20:10:00 Test Item Value Reference Range Interpretation Comments Monocytes (test code = Monocytes) 15.1 2.0-12.0 [place] 475022-07-17 20:10:00 Test Item Value Reference Range Interpretation Comments Eosinophils (test code = 4.1 See_Comment [A utomated message] The Eosinophils) system which ge nerated this result tra nsmitted reference range : <=4.0. The reference r samantha was not used to int erpret this result as normal/abnormal . [facility] BudaUznyiqbKDAOWDAOBY7176-35-94 20:10:00 Test Item Value Reference Range Interpretation Comments Basophils (test code = 0.6 See_Comment [Aut omated message] The Basophils) system which ge nerated this result tra nsmitted reference range : <=1.0. The reference r samantha was not used to int erpret this result as normal/abnormal . [facility] BudaVgeshdmWIUVKZVAKB2377-54-37 20:10:00 Test Item Value Reference Range Interpretation Comments Neutrophils # (test code = Neutrophils 2.9 1.5-8.1 #) [facility] BudaNxuiullQXLQVVRWTF2175-28-27 20:10:00 Test Item Value Reference Range Interpretation Comments Lymphocytes # (test code = Lymphocytes 0.5 1.0-5.5 #) [place] 475022-07-17 20:10:00 Test Item Value Reference Range Interpretation Comments Monocytes # (test code 0.6 See_Comment [Aut omated message] The = Monocytes #) system which generated this result tra nsmitted reference range : <=0.8. The reference r samantha was not used to int erpret this result as normal/abnormal . [facility] BudaMowpcmwIDAYCDSLFR6886-31-33 20:10:00 Test Item Value Reference Range Interpretation Comments Eosinophils # (test code 0.2 See_Comment [A utomated message] The = Eosinophils #) system whic h generated this result tra nsmitted reference range : <=0.5. The reference r samantha was not used to int erpret this result as normal/abnormal . [facility] HospitalXegcpnoSRILQNSZNF5564-68-39 20:10:00 Test Item Value Reference Range Interpretation Comments Anisocyte (test code = 1+ *ABN*(12/14/21 Anisocyte) 3:10 PM) [facility] HospitalXzreydvVLQOMJNIXA0934-51-68 20:10:00 Test Item Value Reference Range Interpretation Comments Macrocyte (test code = 1+ *ABN*(12/14/21 Macrocyte) 3:10 PM) [facility] PasoWgsnmoaFORKZQDYZK9354-65-99 20:10:00 Test Item Value Reference Range Interpretation Comments Coronavirus (COVID-19) Detected MANUEL (test code = 4*ABN*(12/14/21 3:10 Coronavirus (COVID-19) PM) MANUEL) [facility] PasoCARDIAC [id number] 20:10:00 Test Item Value Reference Range Interpretation Comments HS Troponin I Baseline (test code = HS 340 Troponin I Baseline) [facility] [id number] 20:10:00 Test Item Value Reference Range Interpretation Comments Glucose Lvl (test code = Glucose Lvl) 60 70-99 [facility]2022-07-17 20:10:00 Test Item Value Reference Range Interpretation Comments BUN (test code = BUN) 35 7-22 [facility]2022-07-17 20:10:00 Test Item Value Reference Range Interpretation Comments Creatinine Lvl (test code = Creatinine 6.10 0.50-1.40 Lvl) [facility]2022-07-17 20:10:00 Test Item Value Reference Range Interpretation Comments Sodium Lvl (test code = Sodium Lvl) 139 135-145 [facility]2022-07-17 20:10:00 Test Item Value Reference Range Interpretation Comments Potassium Lvl (test code = Potassium 3.1 3.5-5.1 Lvl) [facility]2022-07-17 20:10:00 Test Item Value Reference Range Interpretation Comments Chloride Lvl (test code = Chloride Lvl) 105 95-109 [facility]2022-07-17 20:10:00 Test Item Value Reference Range Interpretation Comments CO2 (test code = CO2) 28 24-32 [facility] [id number] 20:10:00 Test Item Value Reference Range Interpretation Comments Calcium Lvl (test code = Calcium Lvl) 8.1 8.5-10.5 [facility] HospitalSoftware Spectrum CorporationKATIE [place] [id number] 20:10:00 Test Item Value Reference Range Interpretation Comments Total Protein (test code = Total 5.8 6.4-8.4 Protein) [place] 662952-07-17 20:10:00 Test Item Value Reference Range Interpretation Comments Albumin Lvl (test code = Albumin Lvl) 2.6 3.5-5.0 [facility] [id number] 20:10:00 Test Item Value Reference Range Interpretation Comments ALT (test code = ALT) 74 See_Comment [Auto mated message] The system which ge nerated this result transmit swathi reference range : <=65. The reference range was not used to interpr et this result as deny l/abnormal. [facility] [id number] 20:10:00 Test Item Value Reference Range Interpretation Comments AST (test code = AST) 117 See_Comment [Auto mated message] The system which ge nerated this result transmit swathi reference range : <=37. The reference range was not used to interpr et this result as deny l/abnormal. [facility] [employer] [id number] 20:10:00 Test Item Value Reference Range Interpretation Comments Alk Phos (test code = Alk Phos) 241 39-136 [facility] [id number] 20:10:00 Test Item Value Reference Range Interpretation Comments Bili Total (test code = Bili Total) 0.8 0.2-1.3 [facility] [id number] 20:10:00 Test Item Value Reference Range Interpretation Comments AGAP (test code = AGAP) 9.1 10.0-20.0 [facility] [employer] [id number] 20:10:00 Test Item Value Reference Range Interpretation Comments B/C Ratio (test code = B/C Ratio) 6 1 6-25 [facility] [id number] 20:10:00 Test Item Value Reference Range Interpretation Comments Globulin (test code = Globulin) 3.2 2.7-4.2 [facility] [employer] [id number] 20:10:00 Test Item Value Reference Range Interpretation Comments A/G Ratio (test code = A/G Ratio) 0.8 1 0.7-1.6 [facility] [id number] 20:10:00 Test Item Value Reference Range Interpretation Comments eGFR (test code = eGFR) 9 [facility]udaRjdhcbnWAVWBYSNGG4777-06-06 20:10:00 Test Item Value Reference Range Interpretation Comments WBC (test code = WBC) 4.3 3.7-10.4 [facility] BudaXcwpvnaLVOASHERNC4702-74-78 20:10:00 Test Item Value Reference Range Interpretation Comments RBC (test code = RBC) 2.17 4.70-6.10 [facility] BudaQeegkbfLNQPGXQNKI8475-64-62 20:10:00 Test Item Value Reference Range Interpretation Comments Hgb (test code = Hgb) 7.7 14.0-18.0 [facility] BudaHrvkjylOSKPCHADQG1069-64-61 20:10:00 Test Item Value Reference Range Interpretation Comments Hct (test code = Hct) 22.9 42.0-54.0 [facility] BudaFnvwrpaTTLZFKXFGA5068-79-00 20:10:00 Test Item Value Reference Range Interpretation Comments MCV (test code = MCV) 105.9 80.0-94.0 [facility] BudaWtwcdqfSUJKQGSQIL3642-79-90 20:10:00 Test Item Value Reference Range Interpretation Comments MCH (test code = MCH) 35.4 pg 27.0-31.0 [facility] BudaJuorewwEIPESHQMVH5384-05-05 20:10:00 Test Item Value Reference Range Interpretation Comments MCHC (test code = MCHC) 33.4 32.0-36.0 [facility] BudaYerrtlrNYCZMEFYLY7164-59-84 20:10:00 Test Item Value Reference Range Interpretation Comments RDW (test code = RDW) 23.6 11.5-14.5 [facility] BudaIufyavgIYUITKKAYN4942-73-16 20:10:00 Test Item Value Reference Range Interpretation Comments Platelet (test code = Platelet) 146 133-450 [facility] BudaSgokxzlOFQAAWPRPI4256-16-04 20:10:00 Test Item Value Reference Range Interpretation Comments MPV (test code = MPV) 8.0 7.4-10.4 [facility] BudaUwnjcquOABOOPXFJK0711-57-08 20:10:00 Test Item Value Reference Range Interpretation Comments Plt Morph (test code = Normal (7/17/22 3:10 Plt Morph) PM) [facility] BudaGovxqxpASWXDIPUIM0166-70-73 20:10:00 Test Item Value Reference Range Interpretation Comments Segs (test code = Segs) 67.4 45.0-75.0 [place] 475022-07-17 20:10:00 Test Item Value Reference Range Interpretation Comments Lymphocytes (test code = Lymphocytes) 12.8 20.0-40.0 [place] 475022-07-17 20:10:00 Test Item Value Reference Range Interpretation Comments Monocytes (test code = Monocytes) 15.1 2.0-12.0 [place] 475022-07-17 20:10:00 Test Item Value Reference Range Interpretation Comments Eosinophils (test code = 4.1 See_Comment [A utomated message] The Eosinophils) system which ge nerated this result tra nsmitted reference range : <=4.0. The reference r samantha was not used to int erpret this result as normal/abnormal . [facility] BudaKvitevrCMFBJJSOMT1882-25-60 20:10:00 Test Item Value Reference Range Interpretation Comments Basophils (test code = 0.6 See_Comment [Aut omated message] The Basophils) system which ge nerated this result tra nsmitted reference range : <=1.0. The reference r samantha was not used to int erpret this result as normal/abnormal . [facility] BudaPvlgbkvLNJWGAULMQ8874-24-20 20:10:00 Test Item Value Reference Range Interpretation Comments Neutrophils # (test code = Neutrophils 2.9 1.5-8.1 #) [facility] BudaCdgspmxYBYOZXTCNS3471-88-83 20:10:00 Test Item Value Reference Range Interpretation Comments Lymphocytes # (test code = Lymphocytes 0.5 1.0-5.5 #) [place] 475022-07-17 20:10:00 Test Item Value Reference Range Interpretation Comments Monocytes # (test code 0.6 See_Comment [Aut omated message] The = Monocytes #) system which generated this result tra nsmitted reference range : <=0.8. The reference r samantha was not used to int erpret this result as normal/abnormal . [place] 475022-07-17 20:10:00 Test Item Value Reference Range Interpretation Comments Eosinophils # (test code 0.2 See_Comment [A utomated message] The = Eosinophils #) system whic h generated this result tra nsmitted reference range : <=0.5. The reference r samantha was not used to int erpret this result as normal/abnormal . [facility]RepupkaAXGBCYPLBC8335-60-68 20:10:00 Test Item Value Reference Range Interpretation Comments Anisocyte (test code = 1+ *ABN*(12/14/21 Anisocyte) 3:10 PM) [facility] PasoOzlegkdJMUNBJSLYF1030-75-55 20:10:00 Test Item Value Reference Range Interpretation Comments Macrocyte (test code = 1+ *ABN*(12/14/21 Macrocyte) 3:10 PM) [facility] PasoPvrvdwgCTERWTWAOI2943-69-39 20:10:00 Test Item Value Reference Range Interpretation Comments Coronavirus (COVID-19) Detected MANUEL (test code = 4*ABN*(12/14/21 3:10 Coronavirus (COVID-19) PM) MANUEL) [facility] PasoCARDIAC [id number] 20:10:00 Test Item Value Reference Range Interpretation Comments HS Troponin I Baseline (test code = HS 340 Troponin I Baseline) [facility]2022-07-17 20:10:00 Test Item Value Reference Range Interpretation Comments Glucose Lvl (test code = Glucose Lvl) 60 70-99 [facility]2022-07-17 20:10:00 Test Item Value Reference Range Interpretation Comments BUN (test code = BUN) 35 7-22 [facility]2022-07-17 20:10:00 Test Item Value Reference Range Interpretation Comments Creatinine Lvl (test code = Creatinine 6.10 0.50-1.40 Lvl) [facility] [id number] 20:10:00 Test Item Value Reference Range Interpretation Comments Sodium Lvl (test code = Sodium Lvl) 139 135-145 [facility] [id number] 20:10:00 Test Item Value Reference Range Interpretation Comments Potassium Lvl (test code = Potassium 3.1 3.5-5.1 Lvl) [facility]2022-07-17 20:10:00 Test Item Value Reference Range Interpretation Comments Chloride Lvl (test code = Chloride Lvl) 105 95-109 [facility] [id number] 20:10:00 Test Item Value Reference Range Interpretation Comments CO2 (test code = CO2) 28 24-32 [facility] [id number] 20:10:00 Test Item Value Reference Range Interpretation Comments Calcium Lvl (test code = Calcium Lvl) 8.1 8.5-10.5 [facility] [id number] 20:10:00 Test Item Value Reference Range Interpretation Comments Total Protein (test code = Total 5.8 6.4-8.4 Protein) [facility] [id number] 20:10:00 Test Item Value Reference Range Interpretation Comments Albumin Lvl (test code = Albumin Lvl) 2.6 3.5-5.0 [facility] [employer] [id number] 20:10:00 Test Item Value Reference Range Interpretation Comments ALT (test code = ALT) 74 See_Comment [Auto mated message] The system which ge nerated this result transmit swathi reference range : <=65. The reference range was not used to interpr et this result as deny l/abnormal. [facility] [employer] [id number] 20:10:00 Test Item Value Reference Range Interpretation Comments AST (test code = AST) 117 See_Comment [Auto mated message] The system which ge nerated this result transmit swathi reference range : <=37. The reference range was not used to interpr et this result as deny l/abnormal. [facility] [employer] [id number] 20:10:00 Test Item Value Reference Range Interpretation Comments Alk Phos (test code = Alk Phos) 241 39-136 [facility] [employer] [id number] 20:10:00 Test Item Value Reference Range Interpretation Comments Bili Total (test code = Bili Total) 0.8 0.2-1.3 [facility] [employer] [id number] 20:10:00 Test Item Value Reference Range Interpretation Comments AGAP (test code = AGAP) 9.1 10.0-20.0 [facility] [employer] [id number] 20:10:00 Test Item Value Reference Range Interpretation Comments B/C Ratio (test code = B/C Ratio) 6 1 6-25 [facility] [employer] [id number] 20:10:00 Test Item Value Reference Range Interpretation Comments Globulin (test code = Globulin) 3.2 2.7-4.2 [facility]2022-07-17 20:10:00 Test Item Value Reference Range Interpretation Comments A/G Ratio (test code = A/G Ratio) 0.8 1 0.7-1.6 [facility]2022-07-17 20:10:00 Test Item Value Reference Range Interpretation Comments eGFR (test code = eGFR) 9 [facility] BudaGavnuwzVWFDPWEEKR1715-85-76 20:10:00 Test Item Value Reference Range Interpretation Comments WBC (test code = WBC) 4.3 3.7-10.4 [place] 475022-07-17 20:10:00 Test Item Value Reference Range Interpretation Comments RBC (test code = RBC) 2.17 4.70-6.10 [place] 475022-07-17 20:10:00 Test Item Value Reference Range Interpretation Comments Hgb (test code = Hgb) 7.7 14.0-18.0 [place] 475022-07-17 20:10:00 Test Item Value Reference Range Interpretation Comments Hct (test code = Hct) 22.9 42.0-54.0 [facility] BudaIvvwaewBFNXGTDYPW2614-35-54 20:10:00 Test Item Value Reference Range Interpretation Comments MCV (test code = MCV) 105.9 80.0-94.0 [place] 475022-07-17 20:10:00 Test Item Value Reference Range Interpretation Comments MCH (test code = MCH) 35.4 pg 27.0-31.0 [place] 475022-07-17 20:10:00 Test Item Value Reference Range Interpretation Comments MCHC (test code = MCHC) 33.4 32.0-36.0 [place] 475022-07-17 20:10:00 Test Item Value Reference Range Interpretation Comments RDW (test code = RDW) 23.6 11.5-14.5 [place] 475022-07-17 20:10:00 Test Item Value Reference Range Interpretation Comments Platelet (test code = Platelet) 146 133-450 [facility] BudaDijdeutABIYYBEFSP5804-45-75 20:10:00 Test Item Value Reference Range Interpretation Comments MPV (test code = MPV) 8.0 7.4-10.4 [place] 475022-07-17 20:10:00 Test Item Value Reference Range Interpretation Comments Plt Morph (test code = Normal (12/14/21 3:10 Plt Morph) PM) [facility] BudaAgaaqczHEJTHONQGD0737-64-45 20:10:00 Test Item Value Reference Range Interpretation Comments Segs (test code = Segs) 67.4 45.0-75.0 [place] 475022-07-17 20:10:00 Test Item Value Reference Range Interpretation Comments Lymphocytes (test code = Lymphocytes) 12.8 20.0-40.0 [place] 475022-07-17 20:10:00 Test Item Value Reference Range Interpretation Comments Monocytes (test code = Monocytes) 15.1 2.0-12.0 [facility] Bu[id number] 20:10:00 Test Item Value Reference Range Interpretation Comments Eosinophils (test code = 4.1 See_Comment [A utomated message] The Eosinophils) system which ge nerated this result tra nsmitted reference range : <=4.0. The reference r samantha was not used to int erpret this result as normal/abnormal . [facility] BudaBoqkfvmPNMFLAGOEH9748-45-42 20:10:00 Test Item Value Reference Range Interpretation Comments Basophils (test code = 0.6 See_Comment [Aut omated message] The Basophils) system which ge nerated this result tra nsmitted reference range : <=1.0. The reference r samantha was not used to int erpret this result as normal/abnormal . [facility] BudaFcjyfndJNFPRSZIQA6363-52-65 20:10:00 Test Item Value Reference Range Interpretation Comments Neutrophils # (test code = Neutrophils 2.9 1.5-8.1 #) [facility] BudaJeqjzjpIIGISUBEHR8208-48-35 20:10:00 Test Item Value Reference Range Interpretation Comments Lymphocytes # (test code = Lymphocytes 0.5 1.0-5.5 #) [place] 475022-07-17 20:10:00 Test Item Value Reference Range Interpretation Comments Monocytes # (test code 0.6 See_Comment [Aut omated message] The = Monocytes #) system which generated this result tra nsmitted reference range : <=0.8. The reference r samantha was not used to int erpret this result as normal/abnormal . [facility] BudaRfzjhnmNOZSEAFMNM1632-30-95 20:10:00 Test Item Value Reference Range Interpretation Comments Eosinophils # (test code 0.2 See_Comment [A utomated message] The = Eosinophils #) system whic h generated this result tra nsmitted reference range : <=0.5. The reference r samantha was not used to int erpret this result as normal/abnormal . [facility] BudaQpwzhegVYUEGLOAYI4218-45-05 20:10:00 Test Item Value Reference Range Interpretation Comments Anisocyte (test code = 1+ *ABN*(12/14/21 Anisocyte) 3:10 PM) [facility] BudaVjgvxntVIBGHRGQOM3485-24-03 20:10:00 Test Item Value Reference Range Interpretation Comments Macrocyte (test code = 1+ *ABN*(12/14/21 Macrocyte) 3:10 PM) [facility] PasoAdyedicCXGEBLPAQR5926-80-96 20:10:00 Test Item Value Reference Range Interpretation Comments Coronavirus (COVID-19) Detected MANUEL (test code = 4*ABN*(12/14/21 3:10 Coronavirus (COVID-19) PM) MANUEL) [facility] AND [id number] 01:43:00 Test Item Value Reference Range Interpretation Comments Occult Bld Stl (test Negative (12/03/21 8:43 code = Occult Bld Stl) PM) [facility] AND [id number] 01:43:00 Test Item Value Reference Range Interpretation Comments Occult Bld Stl (test Negative (12/03/21 8:43 code = Occult Bld Stl) PM) [facility] AND [id number] 01:43:00 Test Item Value Reference Range Interpretation Comments Occult Bld Stl (test Negative (12/03/21 8:43 code = Occult Bld Stl) PM) [facility] AND [id number] 01:43:00 Test Item Value Reference Range Interpretation Comments Occult Bld Stl (test Negative (12/03/21 8:43 code = Occult Bld Stl) PM) [facility] AND [id number] 01:43:00 Test Item Value Reference Range Interpretation Comments Occult Bld Stl (test Negative (12/03/21 8:43 code = Occult Bld Stl) PM) [facility] AND [id number] 01:43:00 Test Item Value Reference Range Interpretation Comments Occult Bld Stl (test Negative (12/03/21 8:43 code = Occult Bld Stl) PM) [facility] AND [id number] 01:43:00 Test Item Value Reference Range Interpretation Comments Occult Bld Stl (test Negative (12/03/21 8:43 code = Occult Bld Stl) PM) [facility] AND [id number] 01:43:00 Test Item Value Reference Range Interpretation Comments Occult Bld Stl (test Negative (12/03/21 8:43 code = Occult Bld Stl) PM) [facility] AND [id number] 01:43:00 Test Item Value Reference Range Interpretation Comments Occult Bld Stl (test Negative (12/03/21 8:43 code = Occult Bld Stl) PM) [facility] [id number] 01:29:00 Test Item Value Reference Range Interpretation Comments RBC product (test code Product available = RBC product) 2(12/03/21 8:29 PM) [facility] [id number] 01:29:00 Test Item Value Reference Range Interpretation Comments RBC product (test code Product available = RBC product) 2(12/03/21 8:29 PM) [facility] [id number] 01:29:00 Test Item Value Reference Range Interpretation Comments RBC product (test code Product available = RBC product) 2(12/03/21 8:29 PM) [facility] [id number] 01:29:00 Test Item Value Reference Range Interpretation Comments RBC product (test code Product available = RBC product) 2(12/03/21 8:29 PM) [facility] [id number] 01:29:00 Test Item Value Reference Range Interpretation Comments RBC product (test code Product available = RBC product) 2(12/03/21 8:29 PM) [facility] [id number] 01:29:00 Test Item Value Reference Range Interpretation Comments RBC product (test code Product available = RBC product) 2(12/03/21 8:29 PM) [facility] [id number] 01:29:00 Test Item Value Reference Range Interpretation Comments RBC product (test code Product available = RBC product) 2(12/03/21 8:29 PM) [facility] [id number] 01:29:00 Test Item Value Reference Range Interpretation Comments RBC product (test code Product available = RBC product) 2(12/03/21 8:29 PM) [facility] [id number] 01:29:00 Test Item Value Reference Range Interpretation Comments RBC product (test code Product available = RBC product) 2(12/03/21 8:29 PM) [facility] [id number] 00:36:00 Test Item Value Reference Range Interpretation Comments ABO/Rh (test code = ABO/Rh) AB POS [facility] [id number] 00:36:00 Test Item Value Reference Range Interpretation Comments Antibody Scrn (test Negative (12/03/21 7:36 code = Antibody Scrn) PM) [facility] [id number] 00:36:00 Test Item Value Reference Range Interpretation Comments Glucose Lvl (test code = Glucose Lvl) 143 70-99 [facility] [employer] [id number] 00:36:00 Test Item Value Reference Range Interpretation Comments BUN (test code = BUN) 39 7-22 [facility] [employer] [id number] 00:36:00 Test Item Value Reference Range Interpretation Comments Creatinine Lvl (test code = Creatinine 5.46 0.50-1.40 Lvl) [facility] [employer] [id number] 00:36:00 Test Item Value Reference Range Interpretation Comments Sodium Lvl (test code = Sodium Lvl) 136 135-145 [facility] [employer] [id number] 00:36:00 Test Item Value Reference Range Interpretation Comments Potassium Lvl (test code = Potassium 4.2 3.5-5.1 Lvl) [facility] [employer] [id number] 00:36:00 Test Item Value Reference Range Interpretation Comments Chloride Lvl (test code = Chloride Lvl) 100 95-109 [facility] [employer] [id number] 00:36:00 Test Item Value Reference Range Interpretation Comments CO2 (test code = CO2) 27 24-32 [facility] [id number] 00:36:00 Test Item Value Reference Range Interpretation Comments Calcium Lvl (test code = Calcium Lvl) 8.9 8.5-10.5 [facility]2022-07-07 00:36:00 Test Item Value Reference Range Interpretation Comments AGAP (test code = AGAP) 13.2 10.0-20.0 [facility]2022-07-07 00:36:00 Test Item Value Reference Range Interpretation Comments eGFR (test code = eGFR) 10 [facility] [id number] 00:36:00 Test Item Value Reference Range Interpretation Comments WBC (test code = WBC) 2.5 3.7-10.4 [place] 475022-07-07 00:36:00 Test Item Value Reference Range Interpretation Comments RBC (test code = RBC) 1.97 4.70-6.10 [place] 475022-07-07 00:36:00 Test Item Value Reference Range Interpretation Comments Hgb (test code = Hgb) 7.1 14.0-18.0 [facility] [id number] 00:36:00 Test Item Value Reference Range Interpretation Comments Hct (test code = Hct) 20.6 42.0-54.0 [facility] [id number] 00:36:00 Test Item Value Reference Range Interpretation Comments MCV (test code = MCV) 105.0 80.0-94.0 [facility] [id number] 00:36:00 Test Item Value Reference Range Interpretation Comments MCH (test code = MCH) 36.2 pg 27.0-31.0 [facility] [id number] 00:36:00 Test Item Value Reference Range Interpretation Comments MCHC (test code = MCHC) 34.5 32.0-36.0 [facility] [id number] 00:36:00 Test Item Value Reference Range Interpretation Comments RDW (test code = RDW) 21.1 11.5-14.5 [place] 475022-07-07 00:36:00 Test Item Value Reference Range Interpretation Comments Platelet (test code = Platelet) 136 133-450 [facility] [id number] 00:36:00 Test Item Value Reference Range Interpretation Comments MPV (test code = MPV) 8.7 7.4-10.4 [facility] [id number] 00:36:00 Test Item Value Reference Range Interpretation Comments Segs (test code = Segs) 59.5 45.0-75.0 [place] 475022-07-07 00:36:00 Test Item Value Reference Range Interpretation Comments Lymphocytes (test code = Lymphocytes) 25.2 20.0-40.0 [place] 475022-07-07 00:36:00 Test Item Value Reference Range Interpretation Comments Monocytes (test code = Monocytes) 12.5 2.0-12.0 [facility] [id number] 00:36:00 Test Item Value Reference Range Interpretation Comments Eosinophils (test code = 2.1 See_Comment [A utomated message] The Eosinophils) system which ge nerated this result tra nsmitted reference range : <=4.0. The reference r samantha was not used to int erpret this result as normal/abnormal . [facility] BudaUbchlpgITQQGYNMMV5432-02-40 00:36:00 Test Item Value Reference Range Interpretation Comments Basophils (test code = 0.7 See_Comment [Aut omated message] The Basophils) system which ge nerated this result tra nsmitted reference range : <=1.0. The reference r samantha was not used to int erpret this result as normal/abnormal . [facility] BudaNowohmaETDEHCOHKJ2100-72-20 00:36:00 Test Item Value Reference Range Interpretation Comments Neutrophils # (test code = Neutrophils 1.5 1.5-8.1 #) [facility] [id number] 00:36:00 Test Item Value Reference Range Interpretation Comments Lymphocytes # (test code = Lymphocytes 0.6 1.0-5.5 #) [place] 475022-07-07 00:36:00 Test Item Value Reference Range Interpretation Comments Monocytes # (test code 0.3 See_Comment [Aut omated message] The = Monocytes #) system which generated this result tra nsmitted reference range : <=0.8. The reference r samantha was not used to int erpret this result as normal/abnormal . [facility] [id number] 00:36:00 Test Item Value Reference Range Interpretation Comments Eosinophils # (test code 0.1 See_Comment [A utomated message] The = Eosinophils #) system [facility] h generated this result tra nsmitted reference range : <=0.5. The reference r samantha was not used to int erpret this result as normal/abnormal . [facility] [id number] 00:36:00 Test Item Value Reference Range Interpretation Comments ABO/Rh (test code = ABO/Rh) AB POS [facility] [id number] 00:36:00 Test Item Value Reference Range Interpretation Comments Antibody Scrn (test Negative (12/03/21 7:36 code = Antibody Scrn) PM) [facility]2022-07-07 00:36:00 Test Item Value Reference Range Interpretation Comments Glucose Lvl (test code = Glucose Lvl) 143 70-99 [facility] [id number] 00:36:00 Test Item Value Reference Range Interpretation Comments BUN (test code = BUN) 39 7-22 [facility]2022-07-07 00:36:00 Test Item Value Reference Range Interpretation Comments Creatinine Lvl (test code = Creatinine 5.46 0.50-1.40 Lvl) [facility] [id number] 00:36:00 Test Item Value Reference Range Interpretation Comments Sodium Lvl (test code = Sodium Lvl) 136 135-145 [facility] [id number] 00:36:00 Test Item Value Reference Range Interpretation Comments Potassium Lvl (test code = Potassium 4.2 3.5-5.1 Lvl) [facility] [id number] 00:36:00 Test Item Value Reference Range Interpretation Comments Chloride Lvl (test code = Chloride Lvl) 100 95-109 [facility] [id number] 00:36:00 Test Item Value Reference Range Interpretation Comments CO2 (test code = CO2) 27 24-32 [facility] [id number] 00:36:00 Test Item Value Reference Range Interpretation Comments Calcium Lvl (test code = Calcium Lvl) 8.9 8.5-10.5 [facility] [id number] 00:36:00 Test Item Value Reference Range Interpretation Comments AGAP (test code = AGAP) 13.2 10.0-20.0 [facility] PasoSoloingles.[facility] Internacional [id number] 00:36:00 Test Item Value Reference Range Interpretation Comments eGFR (test code = eGFR) 10 [facility]RvuyklyGFUNSPHIPX6758-27-77 00:36:00 Test Item Value Reference Range Interpretation Comments WBC (test code = WBC) 2.5 3.7-10.4 [facility] BudaAjebucyHFTEXBRUQN0765-74-92 00:36:00 Test Item Value Reference Range Interpretation Comments RBC (test code = RBC) 1.97 4.70-6.10 [facility] BudaXtbcsmtEUQBLJDGCO0303-84-28 00:36:00 Test Item Value Reference Range Interpretation Comments Hgb (test code = Hgb) 7.1 14.0-18.0 [facility] BudaRwzgxrxUETSBYKXLB7014-73-84 00:36:00 Test Item Value Reference Range Interpretation Comments Hct (test code = Hct) 20.6 42.0-54.0 [facility] BudaBfdhzbuZMQQBZDEBW1044-33-39 00:36:00 Test Item Value Reference Range Interpretation Comments MCV (test code = MCV) 105.0 80.0-94.0 [facility] BudaJkxuwhxVTZSVLOTPU8511-65-97 00:36:00 Test Item Value Reference Range Interpretation Comments MCH (test code = MCH) 36.2 pg 27.0-31.0 [facility] BudaMkapagqRBUIYUSDMM3957-74-37 00:36:00 Test Item Value Reference Range Interpretation Comments MCHC (test code = MCHC) 34.5 32.0-36.0 [facility] BudaNtvxjwvCMOQHBZPUT8728-75-09 00:36:00 Test Item Value Reference Range Interpretation Comments RDW (test code = RDW) 21.1 11.5-14.5 [facility] BudaUqconfwZANXCAMSOC7266-65-11 00:36:00 Test Item Value Reference Range Interpretation Comments Platelet (test code = Platelet) 136 133-450 [facility] BudaMfekjkfGJXPYPUUMB9478-18-20 00:36:00 Test Item Value Reference Range Interpretation Comments MPV (test code = MPV) 8.7 7.4-10.4 [facility] BudaUemvicvMUTJOMWZYX5372-29-83 00:36:00 Test Item Value Reference Range Interpretation Comments Segs (test code = Segs) 59.5 45.0-75.0 [facility] BudaGovnjyqYBWIGNPBVW1141-73-02 00:36:00 Test Item Value Reference Range Interpretation Comments Lymphocytes (test code = Lymphocytes) 25.2 20.0-40.0 [facility] BudaVfpdnzgKFLENKFDAS6184-40-98 00:36:00 Test Item Value Reference Range Interpretation Comments Monocytes (test code = Monocytes) 12.5 2.0-12.0 [facility] BudaZjtxakuSDNQHPQROR8575-31-23 00:36:00 Test Item Value Reference Range Interpretation Comments Eosinophils (test code = 2.1 See_Comment [A utomated message] The Eosinophils) system which ge nerated this result tra nsmitted reference range : <=4.0. The reference r samantha was not used to int erpret this result as normal/abnormal . [facility] BudaVqtddunNRDPAHLJDV3592-79-26 00:36:00 Test Item Value Reference Range Interpretation Comments Basophils (test code = 0.7 See_Comment [Aut omated message] The Basophils) system which ge nerated this result tra nsmitted reference range : <=1.0. The reference r samanhta was not used to int erpret this result as normal/abnormal . [facility] BudaAvriyosDUETUJEBNL8645-28-25 00:36:00 Test Item Value Reference Range Interpretation Comments Neutrophils # (test code = Neutrophils 1.5 1.5-8.1 #) [facility] BudaPpdqkpaBJJFMDHVME0549-05-44 00:36:00 Test Item Value Reference Range Interpretation Comments Lymphocytes # (test code = Lymphocytes 0.6 1.0-5.5 #) [facility] BudaQrqqhpnSXDBEVUBKY6205-50-49 00:36:00 Test Item Value Reference Range Interpretation Comments Monocytes # (test code 0.3 See_Comment [Aut omated message] The = Monocytes #) system which generated this result tra nsmitted reference range : <=0.8. The reference r samantha was not used to int erpret this result as normal/abnormal . [facility] BudaUcnbllaDISJENVEVB0052-33-44 00:36:00 Test Item Value Reference Range Interpretation Comments Eosinophils # (test code 0.1 See_Comment [A utomated message] The = Eosinophils #) system whic h generated this result tra nsmitted reference range : <=0.5. The reference r samantha was not used to int erpret this result as normal/abnormal . [facility] HospitalYaphie [id number] 00:36:00 Test Item Value Reference Range Interpretation Comments ABO/Rh (test code = ABO/Rh) AB POS [facility] [employer] [id number] 00:36:00 Test Item Value Reference Range Interpretation Comments Antibody Scrn (test Negative (12/03/21 7:36 code = Antibody Scrn) PM) [facility]2022-07-07 00:36:00 Test Item Value Reference Range Interpretation Comments Glucose Lvl (test code = Glucose Lvl) 143 70-99 [place] 662952-07-07 00:36:00 Test Item Value Reference Range Interpretation Comments BUN (test code = BUN) 39 7-22 [place] 662952-07-07 00:36:00 Test Item Value Reference Range Interpretation Comments Creatinine Lvl (test code = Creatinine 5.46 0.50-1.40 Lvl) [place] 662952-07-07 00:36:00 Test Item Value Reference Range Interpretation Comments Sodium Lvl (test code = Sodium Lvl) 136 135-145 [place] 662952-07-07 00:36:00 Test Item Value Reference Range Interpretation Comments Potassium Lvl (test code = Potassium 4.2 3.5-5.1 Lvl) [place] 662952-07-07 00:36:00 Test Item Value Reference Range Interpretation Comments Chloride Lvl (test code = Chloride Lvl) 100 95-109 [place] 662952-07-07 00:36:00 Test Item Value Reference Range Interpretation Comments CO2 (test code = CO2) 27 24-32 [place] 662952-07-07 00:36:00 Test Item Value Reference Range Interpretation Comments Calcium Lvl (test code = Calcium Lvl) 8.9 8.5-10.5 [place] 662952-07-07 00:36:00 Test Item Value Reference Range Interpretation Comments AGAP (test code = AGAP) 13.2 10.0-20.0 [place] 662952-07-07 00:36:00 Test Item Value Reference Range Interpretation Comments eGFR (test code = eGFR) 10 [place] 475022-07-07 00:36:00 Test Item Value Reference Range Interpretation Comments WBC (test code = WBC) 2.5 3.7-10.4 [place] 475022-07-07 00:36:00 Test Item Value Reference Range Interpretation Comments RBC (test code = RBC) 1.97 4.70-6.10 [place] 475022-07-07 00:36:00 Test Item Value Reference Range Interpretation Comments Hgb (test code = Hgb) 7.1 14.0-18.0 [place] 475022-07-07 00:36:00 Test Item Value Reference Range Interpretation Comments Hct (test code = Hct) 20.6 42.0-54.0 [place] 475022-07-07 00:36:00 Test Item Value Reference Range Interpretation Comments MCV (test code = MCV) 105.0 80.0-94.0 [facility] BudaFkeopywCKXCYKUZOE9515-32-31 00:36:00 Test Item Value Reference Range Interpretation Comments MCH (test code = MCH) 36.2 pg 27.0-31.0 [facility] BudaPwpvzokJORICTUAEV5237-42-48 00:36:00 Test Item Value Reference Range Interpretation Comments MCHC (test code = MCHC) 34.5 32.0-36.0 [facility] BudaUevqcbgECEJFVMQLI9815-48-28 00:36:00 Test Item Value Reference Range Interpretation Comments RDW (test code = RDW) 21.1 11.5-14.5 [facility] BudaOemblhrRCFCMKSMDT3849-28-72 00:36:00 Test Item Value Reference Range Interpretation Comments Platelet (test code = Platelet) 136 133-450 [facility] BudaHxffodbTOTGGXNIFU4724-14-37 00:36:00 Test Item Value Reference Range Interpretation Comments MPV (test code = MPV) 8.7 7.4-10.4 [place] 475022-07-07 00:36:00 Test Item Value Reference Range Interpretation Comments Segs (test code = Segs) 59.5 45.0-75.0 [place] 475022-07-07 00:36:00 Test Item Value Reference Range Interpretation Comments Lymphocytes (test code = Lymphocytes) 25.2 20.0-40.0 [place] 475022-07-07 00:36:00 Test Item Value Reference Range Interpretation Comments Monocytes (test code = Monocytes) 12.5 2.0-12.0 [place] 475022-07-07 00:36:00 Test Item Value Reference Range Interpretation Comments Eosinophils (test code = 2.1 See_Comment [A utomated message] The Eosinophils) system which ge nerated this result tra nsmitted reference range : <=4.0. The reference r samantha was not used to int erpret this result as normal/abnormal . [facility] PasoLjumgdzRQJXRPNGJP2447-97-63 00:36:00 Test Item Value Reference Range Interpretation Comments Basophils (test code = 0.7 See_Comment [Aut omated message] The Basophils) system which ge nerated this result tra nsmitted reference range : <=1.0. The reference r samantha was not used to int erpret this result as normal/abnormal . [facility] BudaTmkhjgmDEHSGIJPOL4758-08-99 00:36:00 Test Item Value Reference Range Interpretation Comments Neutrophils # (test code = Neutrophils 1.5 1.5-8.1 #) [facility] BudaEhfoyysJUKRRRXQRB4611-21-49 00:36:00 Test Item Value Reference Range Interpretation Comments Lymphocytes # (test code = Lymphocytes 0.6 1.0-5.5 #) [facility] BudaGtmrgwjLYQSUJGVGA7038-06-47 00:36:00 Test Item Value Reference Range Interpretation Comments Monocytes # (test code 0.3 See_Comment [Aut omated message] The = Monocytes #) system which generated this result tra nsmitted reference range : <=0.8. The reference r samantha was not used to int erpret this result as normal/abnormal . [facility] BudaVjqidgdMHJQBFOHGX6389-33-84 00:36:00 Test Item Value Reference Range Interpretation Comments Eosinophils # (test code 0.1 See_Comment [A utomated message] The = Eosinophils #) system whic h generated this result tra nsmitted reference range : <=0.5. The reference r samantha was not used to int erpret this result as normal/abnormal . [facility] MQVXLGK2809-60-05 00:36:00 Test Item Value Reference Range Interpretation Comments ABO/Rh (test code = ABO/Rh) AB POS [facility] [employer] [employer] [id number] 00:36:00 Test Item Value Reference Range Interpretation Comments Antibody Scrn (test Negative (12/03/21 7:36 code = Antibody Scrn) PM) [facility] [id number] 00:36:00 Test Item Value Reference Range Interpretation Comments Glucose Lvl (test code = Glucose Lvl) 143 70-99 [facility] ILNIK1757-27-11 00:36:00 Test Item Value Reference Range Interpretation Comments BUN (test code = BUN) 39 7-22 [place] 662952-07-07 00:36:00 Test Item Value Reference Range Interpretation Comments Creatinine Lvl (test code = Creatinine 5.46 0.50-1.40 Lvl) [place] 662952-07-07 00:36:00 Test Item Value Reference Range Interpretation Comments Sodium Lvl (test code = Sodium Lvl) 136 135-145 [place] 662952-07-07 00:36:00 Test Item Value Reference Range Interpretation Comments Potassium Lvl (test code = Potassium 4.2 3.5-5.1 Lvl) [place] 662952-07-07 00:36:00 Test Item Value Reference Range Interpretation Comments Chloride Lvl (test code = Chloride Lvl) 100 95-109 [place] 662952-07-07 00:36:00 Test Item Value Reference Range Interpretation Comments CO2 (test code = CO2) 27 24-32 [place] 662952-07-07 00:36:00 Test Item Value Reference Range Interpretation Comments Calcium Lvl (test code = Calcium Lvl) 8.9 8.5-10.5 [place] 662952-07-07 00:36:00 Test Item Value Reference Range Interpretation Comments AGAP (test code = AGAP) 13.2 10.0-20.0 [place] 662952-07-07 00:36:00 Test Item Value Reference Range Interpretation Comments eGFR (test code = eGFR) 10 [place] 475022-07-07 00:36:00 Test Item Value Reference Range Interpretation Comments WBC (test code = WBC) 2.5 3.7-10.4 [place] 475022-07-07 00:36:00 Test Item Value Reference Range Interpretation Comments RBC (test code = RBC) 1.97 4.70-6.10 [place] 475022-07-07 00:36:00 Test Item Value Reference Range Interpretation Comments Hgb (test code = Hgb) 7.1 14.0-18.0 [place] 475022-07-07 00:36:00 Test Item Value Reference Range Interpretation Comments Hct (test code = Hct) 20.6 42.0-54.0 [place] 475022-07-07 00:36:00 Test Item Value Reference Range Interpretation Comments MCV (test code = MCV) 105.0 80.0-94.0 [facility] BudaCsuqvmnFJXDNTVXUL6180-74-69 00:36:00 Test Item Value Reference Range Interpretation Comments MCH (test code = MCH) 36.2 pg 27.0-31.0 [facility] BudaHerryuoXONXTCTMVQ5998-15-68 00:36:00 Test Item Value Reference Range Interpretation Comments MCHC (test code = MCHC) 34.5 32.0-36.0 [facility] BudaKlqmkzrPWRHZUKJKN4215-28-11 00:36:00 Test Item Value Reference Range Interpretation Comments RDW (test code = RDW) 21.1 11.5-14.5 [facility] BudaUwfiqevBVUXGEZPIW0563-39-51 00:36:00 Test Item Value Reference Range Interpretation Comments Platelet (test code = Platelet) 136 133-450 [facility] BudaBconrhuKXYRSYDOGR5095-10-42 00:36:00 Test Item Value Reference Range Interpretation Comments MPV (test code = MPV) 8.7 7.4-10.4 [facility] BudaMiktmyyAMCLZKJSTA8625-09-08 00:36:00 Test Item Value Reference Range Interpretation Comments Segs (test code = Segs) 59.5 45.0-75.0 [facility] BudaEkvpjgjUTHFCKTRYP1065-79-51 00:36:00 Test Item Value Reference Range Interpretation Comments Lymphocytes (test code = Lymphocytes) 25.2 20.0-40.0 [facility] BudaUdwkjvoMCYODBWNNE8148-77-69 00:36:00 Test Item Value Reference Range Interpretation Comments Monocytes (test code = Monocytes) 12.5 2.0-12.0 [place] 475022-07-07 00:36:00 Test Item Value Reference Range Interpretation Comments Eosinophils (test code = 2.1 See_Comment [A utomated message] The Eosinophils) system which ge nerated this result tra nsmitted reference range : <=4.0. The reference r samantha was not used to int erpret this result as normal/abnormal . [place] 475022-07-07 00:36:00 Test Item Value Reference Range Interpretation Comments Basophils (test code = 0.7 See_Comment [Aut omated message] The Basophils) system which ge nerated this result tra nsmitted reference range : <=1.0. The reference r samantha was not used to int erpret this result as normal/abnormal . [facility] BudaNpazzdwPOJDNLLNID2338-29-25 00:36:00 Test Item Value Reference Range Interpretation Comments Neutrophils # (test code = Neutrophils 1.5 1.5-8.1 #) [facility] BudaQncfugcTWFBRTVQPK6166-63-73 00:36:00 Test Item Value Reference Range Interpretation Comments Lymphocytes # (test code = Lymphocytes 0.6 1.0-5.5 #) [facility] BudaXidynhkTJGSIBRYDX6232-65-25 00:36:00 Test Item Value Reference Range Interpretation Comments Monocytes # (test code 0.3 See_Comment [Aut omated message] The = Monocytes #) system which generated this result tra nsmitted reference range : <=0.8. The reference r samantha was not used to int erpret this result as normal/abnormal . [facility] BudaItralffLRIOCNDBCC7685-04-23 00:36:00 Test Item Value Reference Range Interpretation Comments Eosinophils # (test code 0.1 See_Comment [A utomated message] The = Eosinophils #) system whic h generated this result tra nsmitted reference range : <=0.5. The reference r samantha was not used to int erpret this result as normal/abnormal . [facility] PasoDeath [facility] Party [facility] [id number] 00:36:00 Test Item Value Reference Range Interpretation Comments ABO/Rh (test code = ABO/Rh) AB POS [facility] [id number] 00:36:00 Test Item Value Reference Range Interpretation Comments Antibody Scrn (test Negative (12/03/21 7:36 code = Antibody Scrn) PM) [facility] El PasoSoloingles[employer] [id number] 00:36:00 Test Item Value Reference Range Interpretation Comments Glucose Lvl (test code = Glucose Lvl) 143 70-99 [facility] PasoSoloingles[employer] [id number] 00:36:00 Test Item Value Reference Range Interpretation Comments BUN (test code = BUN) 39 7-22 [facility] [id number] 00:36:00 Test Item Value Reference Range Interpretation Comments Creatinine Lvl (test code = Creatinine 5.46 0.50-1.40 Lvl) [facility] PasoSoloingles.[employer] Internacional [id number] 00:36:00 Test Item Value Reference Range Interpretation Comments Sodium Lvl (test code = Sodium Lvl) 136 135-145 [facility] [id number] 00:36:00 Test Item Value Reference Range Interpretation Comments Potassium Lvl (test code = Potassium 4.2 3.5-5.1 Lvl) [facility]2022-07-07 00:36:00 Test Item Value Reference Range Interpretation Comments Chloride Lvl (test code = Chloride Lvl) 100 95-109 [facility]2022-07-07 00:36:00 Test Item Value Reference Range Interpretation Comments CO2 (test code = CO2) 27 24-32 [place] 662952-07-07 00:36:00 Test Item Value Reference Range Interpretation Comments Calcium Lvl (test code = Calcium Lvl) 8.9 8.5-10.5 [place] 662952-07-07 00:36:00 Test Item Value Reference Range Interpretation Comments AGAP (test code = AGAP) 13.2 10.0-20.0 [facility]2022-07-07 00:36:00 Test Item Value Reference Range Interpretation Comments eGFR (test code = eGFR) 10 [place] 475022-07-07 00:36:00 Test Item Value Reference Range Interpretation Comments WBC (test code = WBC) 2.5 3.7-10.4 [place] 475022-07-07 00:36:00 Test Item Value Reference Range Interpretation Comments RBC (test code = RBC) 1.97 4.70-6.10 [facility] BudaUnmutipYJXNUSOTJP4925-84-80 00:36:00 Test Item Value Reference Range Interpretation Comments Hgb (test code = Hgb) 7.1 14.0-18.0 [place] 475022-07-07 00:36:00 Test Item Value Reference Range Interpretation Comments Hct (test code = Hct) 20.6 42.0-54.0 [place] 475022-07-07 00:36:00 Test Item Value Reference Range Interpretation Comments MCV (test code = MCV) 105.0 80.0-94.0 [place] 475022-07-07 00:36:00 Test Item Value Reference Range Interpretation Comments MCH (test code = MCH) 36.2 pg 27.0-31.0 [place] 475022-07-07 00:36:00 Test Item Value Reference Range Interpretation Comments MCHC (test code = MCHC) 34.5 32.0-36.0 [facility] PasoOffqkddOKMOIAWFUC0134-53-10 00:36:00 Test Item Value Reference Range Interpretation Comments RDW (test code = RDW) 21.1 11.5-14.5 [facility] [employer] [employer] [id number] 00:36:00 Test Item Value Reference Range Interpretation Comments ABO/Rh (test code = ABO/Rh) AB POS [facility] [employer] [employer] [id number] 00:36:00 Test Item Value Reference Range Interpretation Comments Antibody Scrn (test Negative (12/03/21 7:36 code = Antibody Scrn) PM) [facility] [employer] [id number] 00:36:00 Test Item Value Reference Range Interpretation Comments Glucose Lvl (test code = Glucose Lvl) 143 70-99 [facility] [employer] [id number] 00:36:00 Test Item Value Reference Range Interpretation Comments BUN (test code = BUN) 39 7-22 [facility] [employer] [id number] 00:36:00 Test Item Value Reference Range Interpretation Comments Creatinine Lvl (test code = Creatinine 5.46 0.50-1.40 Lvl) [facility] [employer] [id number] 00:36:00 Test Item Value Reference Range Interpretation Comments Sodium Lvl (test code = Sodium Lvl) 136 135-145 [facility] [employer] [id number] 00:36:00 Test Item Value Reference Range Interpretation Comments Potassium Lvl (test code = Potassium 4.2 3.5-5.1 Lvl) [facility] [employer] [id number] 00:36:00 Test Item Value Reference Range Interpretation Comments Chloride Lvl (test code = Chloride Lvl) 100 95-109 [facility] [employer] [id number] 00:36:00 Test Item Value Reference Range Interpretation Comments CO2 (test code = CO2) 27 24-32 [facility] [employer] [id number] 00:36:00 Test Item Value Reference Range Interpretation Comments Calcium Lvl (test code = Calcium Lvl) 8.9 8.5-10.5 [facility] HospitalJvoosuaGYBNYMQSPS4753-43-77 00:36:00 Test Item Value Reference Range Interpretation Comments Platelet (test code = Platelet) 136 133-450 [facility] [employer] [id number] 00:36:00 Test Item Value Reference Range Interpretation Comments AGAP (test code = AGAP) 13.2 10.0-20.0 [facility]2022-07-07 00:36:00 Test Item Value Reference Range Interpretation Comments eGFR (test code = eGFR) 10 [facility] BudaVrikmuxZXKCRHPTNV4449-59-56 00:36:00 Test Item Value Reference Range Interpretation Comments WBC (test code = WBC) 2.5 3.7-10.4 [facility] BudaByyywihHHGQTHGXWI6510-12-21 00:36:00 Test Item Value Reference Range Interpretation Comments RBC (test code = RBC) 1.97 4.70-6.10 [facility] BudaFsovslwOHDURHSUOK4716-98-54 00:36:00 Test Item Value Reference Range Interpretation Comments Hgb (test code = Hgb) 7.1 14.0-18.0 [facility] BudaErrupnkBBMVURZIIO5009-54-16 00:36:00 Test Item Value Reference Range Interpretation Comments Hct (test code = Hct) 20.6 42.0-54.0 [facility] BudaKomasnjCRENLIZZLH9020-53-68 00:36:00 Test Item Value Reference Range Interpretation Comments MCV (test code = MCV) 105.0 80.0-94.0 [facility] BudaJskxphhPQCRMWWCVQ8768-54-46 00:36:00 Test Item Value Reference Range Interpretation Comments MCH (test code = MCH) 36.2 pg 27.0-31.0 [facility] BudaEjkwxvlVUJRMFPCXR8917-53-03 00:36:00 Test Item Value Reference Range Interpretation Comments MCHC (test code = MCHC) 34.5 32.0-36.0 [facility] BudaObmcbeuXVMBMLLPPJ3792-64-13 00:36:00 Test Item Value Reference Range Interpretation Comments RDW (test code = RDW) 21.1 11.5-14.5 [place] 475022-07-07 00:36:00 Test Item Value Reference Range Interpretation Comments MPV (test code = MPV) 8.7 7.4-10.4 [place] 475022-07-07 00:36:00 Test Item Value Reference Range Interpretation Comments Platelet (test code = Platelet) 136 133-450 [facility] BudaUodffivJZNRYSRTGW6854-18-51 00:36:00 Test Item Value Reference Range Interpretation Comments MPV (test code = MPV) 8.7 7.4-10.4 [place] 475022-07-07 00:36:00 Test Item Value Reference Range Interpretation Comments Segs (test code = Segs) 59.5 45.0-75.0 [facility] BudaFmrhdqmIWIDDCEBYC2343-28-29 00:36:00 Test Item Value Reference Range Interpretation Comments Lymphocytes (test code = Lymphocytes) 25.2 20.0-40.0 [facility] BudaPydgkfnVSLKMBWSRP4575-15-32 00:36:00 Test Item Value Reference Range Interpretation Comments Monocytes (test code = Monocytes) 12.5 2.0-12.0 [place] 475022-07-07 00:36:00 Test Item Value Reference Range Interpretation Comments Eosinophils (test code = 2.1 See_Comment [A utomated message] The Eosinophils) system which ge nerated this result tra nsmitted reference range : <=4.0. The reference r samantha was not used to int erpret this result as normal/abnormal . [facility] BudaLlpgcyeSEVURRBKOJ0249-44-29 00:36:00 Test Item Value Reference Range Interpretation Comments Basophils (test code = 0.7 See_Comment [Aut omated message] The Basophils) system which ge nerated this result tra nsmitted reference range : <=1.0. The reference r samantha was not used to int erpret this result as normal/abnormal . [facility]udaElewxurVORVFAAKYU5077-51-28 00:36:00 Test Item Value Reference Range Interpretation Comments Neutrophils # (test code = Neutrophils 1.5 1.5-8.1 #) [facility] BudaKzbrvksIGZIDTZIEE2410-71-71 00:36:00 Test Item Value Reference Range Interpretation Comments Lymphocytes # (test code = Lymphocytes 0.6 1.0-5.5 #) [facility] BudaIreutwvPXUIBMKFPI0238-34-96 00:36:00 Test Item Value Reference Range Interpretation Comments Monocytes # (test code 0.3 See_Comment [Aut omated message] The = Monocytes #) system which generated this result tra nsmitted reference range : <=0.8. The reference r samantha was not used to int erpret this result as normal/abnormal . [facility] BudaPpmowxpYQQUGVTQKY6300-28-26 00:36:00 Test Item Value Reference Range Interpretation Comments Segs (test code = Segs) 59.5 45.0-75.0 [place] 475022-07-07 00:36:00 Test Item Value Reference Range Interpretation Comments Eosinophils # (test code 0.1 See_Comment [A utomated message] The = Eosinophils #) system [facility] h generated this result tra nsmitted reference range : <=0.5. The reference r samantha was not used to int erpret this result as normal/abnormal . [facility] BudaBqrozlmGBIGMHLBVA3267-54-45 00:36:00 Test Item Value Reference Range Interpretation Comments Lymphocytes (test code = Lymphocytes) 25.2 20.0-40.0 [facility] BudaEerlotyINYJVSBRKS6689-98-43 00:36:00 Test Item Value Reference Range Interpretation Comments Monocytes (test code = Monocytes) 12.5 2.0-12.0 [facility] BudaIsycxpdAZXFEPTOVH3186-84-34 00:36:00 Test Item Value Reference Range Interpretation Comments Eosinophils (test code = 2.1 See_Comment [A utomated message] The Eosinophils) system which ge nerated this result tra nsmitted reference range : <=4.0. The reference r samantha was not used to int erpret this result as normal/abnormal . [facility] BudaZjqkwzpTXGNSBAWID7335-77-68 00:36:00 Test Item Value Reference Range Interpretation Comments Basophils (test code = 0.7 See_Comment [Aut omated message] The Basophils) system which ge nerated this result tra nsmitted reference range : <=1.0. The reference r samantha was not used to int erpret this result as normal/abnormal . [facility] BudaFdjwfzfQSEYJWBNVW0329-81-66 00:36:00 Test Item Value Reference Range Interpretation Comments Neutrophils # (test code = Neutrophils 1.5 1.5-8.1 #) [facility] BudaIhbzeqtHHMRVIHJQX6015-63-53 00:36:00 Test Item Value Reference Range Interpretation Comments Lymphocytes # (test code = Lymphocytes 0.6 1.0-5.5 #) [place] 475022-07-07 00:36:00 Test Item Value Reference Range Interpretation Comments Monocytes # (test code 0.3 See_Comment [Aut omated message] The = Monocytes #) system which generated this result tra nsmitted reference range : <=0.8. The reference r samantha was not used to int erpret this result as normal/abnormal . [place] 475022-07-07 00:36:00 Test Item Value Reference Range Interpretation Comments Eosinophils # (test code 0.1 See_Comment [A utomated message] The = Eosinophils #) system whic h generated this result tra nsmitted reference range : <=0.5. The reference r samantha was not used to int erpret this result as normal/abnormal . [facility] [employer] [id number] 00:36:00 Test Item Value Reference Range Interpretation Comments ABO/Rh (test code = ABO/Rh) AB POS [facility] [employer] [id number] 00:36:00 Test Item Value Reference Range Interpretation Comments Antibody Scrn (test Negative (12/03/21 7:36 code = Antibody Scrn) PM) [facility] [employer] [id number] 00:36:00 Test Item Value Reference Range Interpretation Comments Glucose Lvl (test code = Glucose Lvl) 143 70-99 [facility] [employer] [id number] 00:36:00 Test Item Value Reference Range Interpretation Comments BUN (test code = BUN) 39 7-22 [facility] [employer] [id number] 00:36:00 Test Item Value Reference Range Interpretation Comments Creatinine Lvl (test code = Creatinine 5.46 0.50-1.40 Lvl) [facility] [employer] [id number] 00:36:00 Test Item Value Reference Range Interpretation Comments Sodium Lvl (test code = Sodium Lvl) 136 135-145 [facility] [employer] [id number] 00:36:00 Test Item Value Reference Range Interpretation Comments Potassium Lvl (test code = Potassium 4.2 3.5-5.1 Lvl) [facility] [employer] [id number] 00:36:00 Test Item Value Reference Range Interpretation Comments Chloride Lvl (test code = Chloride Lvl) 100 95-109 [facility] [employer] [id number] 00:36:00 Test Item Value Reference Range Interpretation Comments CO2 (test code = CO2) 27 24-32 [facility] [employer] [id number] 00:36:00 Test Item Value Reference Range Interpretation Comments Calcium Lvl (test code = Calcium Lvl) 8.9 8.5-10.5 [facility] [employer] [id number] 00:36:00 Test Item Value Reference Range Interpretation Comments AGAP (test code = AGAP) 13.2 10.0-20.0 [facility]2022-07-07 00:36:00 Test Item Value Reference Range Interpretation Comments eGFR (test code = eGFR) 10 [facility] BudaAspxvqzVGEGPHUBNQ7440-98-31 00:36:00 Test Item Value Reference Range Interpretation Comments WBC (test code = WBC) 2.5 3.7-10.4 [facility] BudaCwzikzrOXGUDIAXBJ6612-70-74 00:36:00 Test Item Value Reference Range Interpretation Comments RBC (test code = RBC) 1.97 4.70-6.10 [facility] BudaQbdqksbKAAMWMOXHC7566-74-21 00:36:00 Test Item Value Reference Range Interpretation Comments Hgb (test code = Hgb) 7.1 14.0-18.0 [facility] BudaYwzhexsHNIBXCMJPX9930-38-21 00:36:00 Test Item Value Reference Range Interpretation Comments Hct (test code = Hct) 20.6 42.0-54.0 [facility] BudaQqmhmmgFWUKCBLCVY6335-28-03 00:36:00 Test Item Value Reference Range Interpretation Comments MCV (test code = MCV) 105.0 80.0-94.0 [facility] BudaDbjcmcdSYNGAKWFCG7910-89-20 00:36:00 Test Item Value Reference Range Interpretation Comments MCH (test code = MCH) 36.2 pg 27.0-31.0 [facility] BudaTtqbqsoXDIWBLKWQD4283-10-49 00:36:00 Test Item Value Reference Range Interpretation Comments MCHC (test code = MCHC) 34.5 32.0-36.0 [facility] BudaFcutwuwVGLZVUYAKB2810-04-48 00:36:00 Test Item Value Reference Range Interpretation Comments RDW (test code = RDW) 21.1 11.5-14.5 [facility] BudaWnjdsnkDGOWIFJLYM4710-89-78 00:36:00 Test Item Value Reference Range Interpretation Comments Platelet (test code = Platelet) 136 133-450 [facility] [id number] 00:36:00 Test Item Value Reference Range Interpretation Comments MPV (test code = MPV) 8.7 7.4-10.4 [place] 475022-07-07 00:36:00 Test Item Value Reference Range Interpretation Comments Segs (test code = Segs) 59.5 45.0-75.0 [facility] BudaQuzqqrrSVRPNADFEK8352-40-22 00:36:00 Test Item Value Reference Range Interpretation Comments Lymphocytes (test code = Lymphocytes) 25.2 20.0-40.0 [facility] BudaPulmvjtHHEPZFAGXH2770-60-40 00:36:00 Test Item Value Reference Range Interpretation Comments Monocytes (test code = Monocytes) 12.5 2.0-12.0 [facility] BudaKdpujruKWUDHSBTNJ3562-77-12 00:36:00 Test Item Value Reference Range Interpretation Comments Eosinophils (test code = 2.1 See_Comment [A utomated message] The Eosinophils) system which ge nerated this result tra nsmitted reference range : <=4.0. The reference r samantha was not used to int erpret this result as normal/abnormal . [facility] BudaDtxkieaHWJSXSCNSF3537-03-23 00:36:00 Test Item Value Reference Range Interpretation Comments Basophils (test code = 0.7 See_Comment [Aut omated message] The Basophils) system which ge nerated this result tra nsmitted reference range : <=1.0. The reference r samantha was not used to int erpret this result as normal/abnormal . [facility] BudaZygjsraTVNEIVNCUH9426-73-50 00:36:00 Test Item Value Reference Range Interpretation Comments Neutrophils # (test code = Neutrophils 1.5 1.5-8.1 #) [facility] BudaMuiqsvkJPVZSNNJNW3661-34-12 00:36:00 Test Item Value Reference Range Interpretation Comments Lymphocytes # (test code = Lymphocytes 0.6 1.0-5.5 #) [facility] BudaFhofwunFHFVLZGPBG8858-69-78 00:36:00 Test Item Value Reference Range Interpretation Comments Monocytes # (test code 0.3 See_Comment [Aut omated message] The = Monocytes #) system which generated this result tra nsmitted reference range : <=0.8. The reference r samantha was not used to int erpret this result as normal/abnormal . [facility] BudaUzbbxdiOCYBOXAFOY5610-06-67 00:36:00 Test Item Value Reference Range Interpretation Comments Eosinophils # (test code 0.1 See_Comment [A utomated message] The = Eosinophils #) system ic h generated this result tra nsmitted reference range : <=0.5. The reference r samantha was not used to int erpret this result as normal/abnormal . [facility] [id number] 00:36:00 Test Item Value Reference Range Interpretation Comments ABO/Rh (test code = ABO/Rh) [facility] [id number] 00:36:00 Test Item Value Reference Range Interpretation Comments Antibody Scrn (test Negative (12/03/21 7:36 code = Antibody Scrn) PM) [facility]2022-07-07 00:36:00 Test Item Value Reference Range Interpretation Comments Glucose Lvl (test code = Glucose Lvl) 143 70-99 [facility]2022-07-07 00:36:00 Test Item Value Reference Range Interpretation Comments BUN (test code = BUN) 39 7-22 [facility]2022-07-07 00:36:00 Test Item Value Reference Range Interpretation Comments Creatinine Lvl (test code = Creatinine 5.46 0.50-1.40 Lvl) [facility]2022-07-07 00:36:00 Test Item Value Reference Range Interpretation Comments Sodium Lvl (test code = Sodium Lvl) 136 135-145 [facility]2022-07-07 00:36:00 Test Item Value Reference Range Interpretation Comments Potassium Lvl (test code = Potassium 4.2 3.5-5.1 Lvl) [facility]2022-07-07 00:36:00 Test Item Value Reference Range Interpretation Comments Chloride Lvl (test code = Chloride Lvl) 100 95-109 [facility]2022-07-07 00:36:00 Test Item Value Reference Range Interpretation Comments CO2 (test code = CO2) 27 24-32 [facility]2022-07-07 00:36:00 Test Item Value Reference Range Interpretation Comments Calcium Lvl (test code = Calcium Lvl) 8.9 8.5-10.5 [facility]2022-07-07 00:36:00 Test Item Value Reference Range Interpretation Comments AGAP (test code = AGAP) 13.2 10.0-20.0 [facility]2022-07-07 00:36:00 Test Item Value Reference Range Interpretation Comments eGFR (test code = eGFR) 10 [facility] BudaTobocojMKPCCRRHMP7137-63-06 00:36:00 Test Item Value Reference Range Interpretation Comments WBC (test code = WBC) 2.5 3.7-10.4 [place] 475022-07-07 00:36:00 Test Item Value Reference Range Interpretation Comments RBC (test code = RBC) 1.97 4.70-6.10 [facility] BudaFxohjcbPBGJWXFABB8845-84-95 00:36:00 Test Item Value Reference Range Interpretation Comments Hgb (test code = Hgb) 7.1 14.0-18.0 [facility] BudaCkfhhleUXTPDMKGQQ5958-95-56 00:36:00 Test Item Value Reference Range Interpretation Comments Hct (test code = Hct) 20.6 42.0-54.0 [facility] BudaRepvcxmYTTAWZMYBQ3980-76-73 00:36:00 Test Item Value Reference Range Interpretation Comments MCV (test code = MCV) 105.0 80.0-94.0 [facility] BudaJnjkosrVJPCVXQSLM5725-92-26 00:36:00 Test Item Value Reference Range Interpretation Comments MCH (test code = MCH) 36.2 pg 27.0-31.0 [facility] BudaGcrudkgOAGYQVSCIZ9407-89-99 00:36:00 Test Item Value Reference Range Interpretation Comments MCHC (test code = MCHC) 34.5 32.0-36.0 [facility] BudaWcwsyhfMVUVSJBEBM2211-83-17 00:36:00 Test Item Value Reference Range Interpretation Comments RDW (test code = RDW) 21.1 11.5-14.5 [facility] BudaTtaijsnUPKRAVYUUU8321-74-55 00:36:00 Test Item Value Reference Range Interpretation Comments Platelet (test code = Platelet) 136 133-450 [facility] BudaNchpcevZUCRBNKQVH2545-39-92 00:36:00 Test Item Value Reference Range Interpretation Comments MPV (test code = MPV) 8.7 7.4-10.4 [facility] BudaXyjzcsqNJDOPHRUIH6390-31-50 00:36:00 Test Item Value Reference Range Interpretation Comments Segs (test code = Segs) 59.5 45.0-75.0 [facility] BudaIcxhwdqFBIZDPFCPB2449-07-76 00:36:00 Test Item Value Reference Range Interpretation Comments Lymphocytes (test code = Lymphocytes) 25.2 20.0-40.0 [facility] BudaQdcpqniYAHPVTDMRY2248-74-73 00:36:00 Test Item Value Reference Range Interpretation Comments Monocytes (test code = Monocytes) 12.5 2.0-12.0 [place] 475022-07-07 00:36:00 Test Item Value Reference Range Interpretation Comments Eosinophils (test code = 2.1 See_Comment [A utomated message] The Eosinophils) system which ge nerated this result tra nsmitted reference range : <=4.0. The reference r samantha was not used to int erpret this result as normal/abnormal . [facility] BudaLidvhywELBHHREVPL3124-88-77 00:36:00 Test Item Value Reference Range Interpretation Comments Basophils (test code = 0.7 See_Comment [Aut omated message] The Basophils) system which ge nerated this result tra nsmitted reference range : <=1.0. The reference r samantha was not used to int erpret this result as normal/abnormal . [facility] BudaYysgmkvVXDPAPYQBW3775-22-77 00:36:00 Test Item Value Reference Range Interpretation Comments Neutrophils # (test code = Neutrophils 1.5 1.5-8.1 #) [facility] BudaKyrrrjuFEVVABQGIM7822-22-61 00:36:00 Test Item Value Reference Range Interpretation Comments Lymphocytes # (test code = Lymphocytes 0.6 1.0-5.5 #) [facility] BudaSfcceyrXGEVFDFXSE6272-68-61 00:36:00 Test Item Value Reference Range Interpretation Comments Monocytes # (test code 0.3 See_Comment [Aut omated message] The = Monocytes #) system which generated this result tra nsmitted reference range : <=0.8. The reference r samantha was not used to int erpret this result as normal/abnormal . [facility] BudaOzpnevkAYLFIALINT0004-81-75 00:36:00 Test Item Value Reference Range Interpretation Comments Eosinophils # (test code 0.1 See_Comment [A utomated message] The = Eosinophils #) system whic h generated this result tra nsmitted reference range : <=0.5. The reference r samantha was not used to int erpret this result as normal/abnormal . [facility] YCK[facility]CEC9799[facility]47-[facility]:36:00 Test Item Value Reference Range Interpretation Comments ABO/Rh (test code = ABO/Rh) AB POS [facility] [id number] 00:36:00 Test Item Value Reference Range Interpretation Comments Antibody Scrn (test Negative (12/03/21 7:36 code = Antibody Scrn) PM) [email or web address] [id number] 00:36:00 Test Item Value Reference Range Interpretation Comments Glucose Lvl (test code = Glucose Lvl) 143 70-99 [place] 662952-07-07 00:36:00 Test Item Value Reference Range Interpretation Comments BUN (test code = BUN) 39 7-22 [place] 662952-07-07 00:36:00 Test Item Value Reference Range Interpretation Comments Creatinine Lvl (test code = Creatinine 5.46 0.50-1.40 Lvl) [place] 662952-07-07 00:36:00 Test Item Value Reference Range Interpretation Comments Sodium Lvl (test code = Sodium Lvl) 136 135-145 [place] 662952-07-07 00:36:00 Test Item Value Reference Range Interpretation Comments Potassium Lvl (test code = Potassium 4.2 3.5-5.1 Lvl) [place] 662952-07-07 00:36:00 Test Item Value Reference Range Interpretation Comments Chloride Lvl (test code = Chloride Lvl) 100 95-109 [place] 662952-07-07 00:36:00 Test Item Value Reference Range Interpretation Comments CO2 (test code = CO2) 27 24-32 [place] 662952-07-07 00:36:00 Test Item Value Reference Range Interpretation Comments Calcium Lvl (test code = Calcium Lvl) 8.9 8.5-10.5 [place] 662952-07-07 00:36:00 Test Item Value Reference Range Interpretation Comments AGAP (test code = AGAP) 13.2 10.0-20.0 [place] 662952-07-07 00:36:00 Test Item Value Reference Range Interpretation Comments eGFR (test code = eGFR) 10 [place] 475022-07-07 00:36:00 Test Item Value Reference Range Interpretation Comments WBC (test code = WBC) 2.5 3.7-10.4 [place] 475022-07-07 00:36:00 Test Item Value Reference Range Interpretation Comments RBC (test code = RBC) 1.97 4.70-6.10 [place] 475022-07-07 00:36:00 Test Item Value Reference Range Interpretation Comments Hgb (test code = Hgb) 7.1 14.0-18.0 [place] 475022-07-07 00:36:00 Test Item Value Reference Range Interpretation Comments Hct (test code = Hct) 20.6 42.0-54.0 [facility] BudaGzxpzikUULPGVLJKV1910-91-19 00:36:00 Test Item Value Reference Range Interpretation Comments MCV (test code = MCV) 105.0 80.0-94.0 [place] 475022-07-07 00:36:00 Test Item Value Reference Range Interpretation Comments MCH (test code = MCH) 36.2 pg 27.0-31.0 [place] 475022-07-07 00:36:00 Test Item Value Reference Range Interpretation Comments MCHC (test code = MCHC) 34.5 32.0-36.0 [facility] BudaDsyoxilIYTJADJIFC2414-08-72 00:36:00 Test Item Value Reference Range Interpretation Comments RDW (test code = RDW) 21.1 11.5-14.5 [facility] BudaZacgrmgJSRMZEXMQT3449-44-22 00:36:00 Test Item Value Reference Range Interpretation Comments Platelet (test code = Platelet) 136 133-450 [facility] BudaLrwijdwQJUGBHDIPX8434-78-64 00:36:00 Test Item Value Reference Range Interpretation Comments MPV (test code = MPV) 8.7 7.4-10.4 [place] 475022-07-07 00:36:00 Test Item Value Reference Range Interpretation Comments Segs (test code = Segs) 59.5 45.0-75.0 [facility] BudaBjulindQQEJDWCHVC1542-39-03 00:36:00 Test Item Value Reference Range Interpretation Comments Lymphocytes (test code = Lymphocytes) 25.2 20.0-40.0 [place] 475022-07-07 00:36:00 Test Item Value Reference Range Interpretation Comments Monocytes (test code = Monocytes) 12.5 2.0-12.0 [place] 475022-07-07 00:36:00 Test Item Value Reference Range Interpretation Comments Eosinophils (test code = 2.1 See_Comment [A utomated message] The Eosinophils) system which ge nerated this result tra nsmitted reference range : <=4.0. The reference r samantha was not used to int erpret this result as normal/abnormal . [facility] BudaJasqreqCBVQRACDJH5293-55-75 00:36:00 Test Item Value Reference Range Interpretation Comments Basophils (test code = 0.7 See_Comment [Aut omated message] The Basophils) system which ge nerated this result tra nsmitted reference range : <=1.0. The reference r samantha was not used to int erpret this result as normal/abnormal . [facility] BudaKigvtgpHQNRFDAWNH9322-73-47 00:36:00 Test Item Value Reference Range Interpretation Comments Neutrophils # (test code = Neutrophils 1.5 1.5-8.1 #) [facility] BudaRjthiviQCEHIHQANH8252-31-50 00:36:00 Test Item Value Reference Range Interpretation Comments Lymphocytes # (test code = Lymphocytes 0.6 1.0-5.5 #) [facility] BudaHvhraerBRFJBOIOFM0309-42-69 00:36:00 Test Item Value Reference Range Interpretation Comments Monocytes # (test code 0.3 See_Comment [Aut omated message] The = Monocytes #) system which generated this result tra nsmitted reference range : <=0.8. The reference r samantha was not used to int erpret this result as normal/abnormal . [place] 475022-07-07 00:36:00 Test Item Value Reference Range Interpretation Comments Eosinophils # (test code 0.1 See_Comment [A utomated message] The = Eosinophils #) system whic h generated this result tra nsmitted reference range : <=0.5. The reference r samantha was not used to int erpret this result as normal/abnormal . [facility]2022-06-29 09:09:00 Test Item Value Reference Range Interpretation Comments Ferritin Lvl (test code = Ferritin Lvl) 1543 22-275 [facility]2022-06-29 09:09:00 Test Item Value Reference Range Interpretation Comments Glucose Lvl (test code = Glucose Lvl) 288 70-99 [place] 662952-06-29 09:09:00 Test Item Value Reference Range Interpretation Comments BUN (test code = BUN) 40 7-22 [place] 662952-06-29 09:09:00 Test Item Value Reference Range Interpretation Comments Creatinine Lvl (test code = Creatinine 6.23 0.50-1.40 Lvl) [place] 662952-06-29 09:09:00 Test Item Value Reference Range Interpretation Comments Sodium Lvl (test code = Sodium Lvl) 134 135-145 [place] 662952-06-29 09:09:00 Test Item Value Reference Range Interpretation Comments Potassium Lvl (test code = Potassium 4.5 3.5-5.1 Lvl) [place] 662952-06-29 09:09:00 Test Item Value Reference Range Interpretation Comments Chloride Lvl (test code = Chloride Lvl) 96 95-109 [place] 662952-06-29 09:09:00 Test Item Value Reference Range Interpretation Comments CO2 (test code = CO2) 29 24-32 [place] 662952-06-29 09:09:00 Test Item Value Reference Range Interpretation Comments AGAP (test code = AGAP) 13.5 10.0-20.0 [place] 662952-06-29 09:09:00 Test Item Value Reference Range Interpretation Comments Calcium Lvl (test code = Calcium Lvl) 9.1 8.5-10.5 [place] 662952-06-29 09:09:00 Test Item Value Reference Range Interpretation Comments B/C Ratio (test code = B/C Ratio) 6 1 6-25 [place] 662952-06-29 09:09:00 Test Item Value Reference Range Interpretation Comments Total Protein (test code = Total 6.3 6.4-8.4 Protein) [place] 662952-06-29 09:09:00 Test Item Value Reference Range Interpretation Comments Albumin Lvl (test code = Albumin Lvl) 2.5 3.5-5.0 [place] 662952-06-29 09:09:00 Test Item Value Reference Range Interpretation Comments Globulin (test code = Globulin) 3.8 2.7-4.2 [place] 662952-06-29 09:09:00 Test Item Value Reference Range Interpretation Comments A/G Ratio (test code = A/G Ratio) 0.7 1 0.7-1.6 [place] 662952-06-29 09:09:00 Test Item Value Reference Range Interpretation Comments ALT (test code = ALT) 38 See_Comment [Auto mated message] The system which ge nerated this result transmit swathi reference range : <=65. The reference range was not used to interpr et this result as deny l/abnormal. [place] 662952-06-29 09:09:00 Test Item Value Reference Range Interpretation Comments AST (test code = AST) 31 See_Comment [Auto mated message] The system which ge nerated this result transmit swathi reference range : <=37. The reference range was not used to interpr et this result as deny l/abnormal. [facility] [email or web address] [id number] 09:09:00 Test Item Value Reference Range Interpretation Comments Alk Phos (test code = Alk Phos) 357 39-136 [facility] [id number] 09:09:00 Test Item Value Reference Range Interpretation Comments Bili Total (test code = Bili Total) 1.0 0.2-1.3 [place] 662952-06-29 09:09:00 Test Item Value Reference Range Interpretation Comments eGFR (test code = eGFR) 8 [facility]2022-06-29 09:09:00 Test Item Value Reference Range Interpretation Comments Magnesium Lvl (test code = Magnesium 2.0 1.8-2.4 Lvl) [place] 662952-06-29 09:09:00 Test Item Value Reference Range Interpretation Comments LDH (test code = LDH) 251 98-192 [facility] [id number] 09:09:00 Test Item Value Reference Range Interpretation Comments Procalcitonin Lvl (test 0.51 See_Comment [Au tomated message] code = Procalcitonin Lvl) Th e system which generated this result transmitted ref erence range: <=0.10. The reference range was not used to interpr et this result as normal/abnormal . [facility] PasoQrnlbhwZGEMZLNSRH9241-47-17 09:09:00 Test Item Value Reference Range Interpretation Comments D-Dimer (test code = D-Dimer) 5.06 [place] [address]-06-29 09:09:00 Test Item Value Reference Range Interpretation Comments WBC (test code = WBC) 4.8 3.7-10.4 [place] 475022-06-29 09:09:00 Test Item Value Reference Range Interpretation Comments RBC (test code = RBC) 2.14 4.70-6.10 [place] 475022-06-29 09:09:00 Test Item Value Reference Range Interpretation Comments Hgb (test code = Hgb) 7.7 14.0-18.0 [place] 475022-06-29 09:09:00 Test Item Value Reference Range Interpretation Comments Hct (test code = Hct) 22.8 42.0-54.0 [facility]udaYnvsktlVEKGCQICJW3785-55-00 09:09:00 Test Item Value Reference Range Interpretation Comments MCV (test code = MCV) 106.5 80.0-94.0 [place] 475022-06-29 09:09:00 Test Item Value Reference Range Interpretation Comments MCH (test code = MCH) 36.1 pg 27.0-31.0 [place] 475022-06-29 09:09:00 Test Item Value Reference Range Interpretation Comments MCHC (test code = MCHC) 33.9 32.0-36.0 [place] 475022-06-29 09:09:00 Test Item Value Reference Range Interpretation Comments RDW (test code = RDW) 21.8 11.5-14.5 [place] 475022-06-29 09:09:00 Test Item Value Reference Range Interpretation Comments Platelet (test code = Platelet) 176 133-450 [facility] BudaJeqxqohQMIFSYTFQR9931-35-11 09:09:00 Test Item Value Reference Range Interpretation Comments MPV (test code = MPV) 8.2 7.4-10.4 [place] 475022-06-29 09:09:00 Test Item Value Reference Range Interpretation Comments Segs (test code = Segs) 83.6 45.0-75.0 [facility] BudaShsfuqvKRVCROWAHX0608-98-65 09:09:00 Test Item Value Reference Range Interpretation Comments Lymphocytes (test code = Lymphocytes) 10.7 20.0-40.0 [facility] BudaRiijzlnPSMCLVDRAH6843-30-96 09:09:00 Test Item Value Reference Range Interpretation Comments Monocytes (test code = Monocytes) 4.9 2.0-12.0 [place] [address]-06-29 09:09:00 Test Item Value Reference Range Interpretation Comments Eosinophils (test code = 0.4 See_Comment [A utomated message] The Eosinophils) system which ge nerated this result tra nsmitted reference range : <=4.0. The reference r samantha was not used to int erpret this result as normal/abnormal . [facility] BudaNpgupmeTHTWTUGATB2299-45-99 09:09:00 Test Item Value Reference Range Interpretation Comments Basophils (test code = 0.4 See_Comment [Aut omated message] The Basophils) system which ge nerated this result tra nsmitted reference range : <=1.0. The reference r samantha was not used to int erpret this result as normal/abnormal . [facility] BudaFlerujsEPEERIBYKH8950-05-54 09:09:00 Test Item Value Reference Range Interpretation Comments Neutrophils # (test code = Neutrophils 4.0 1.5-8.1 #) [facility] BudaDhcgquiHYMCNKUQZL9961-43-11 09:09:00 Test Item Value Reference Range Interpretation Comments Lymphocytes # (test code = Lymphocytes 0.5 1.0-5.5 #) [facility] BudaIbjgxhlEEFCTTQRXU1083-56-27 09:09:00 Test Item Value Reference Range Interpretation Comments Monocytes # (test code 0.2 See_Comment [Aut omated message] The = Monocytes #) system which generated this result tra nsmitted reference range : <=0.8. The reference r samantha was not used to int erpret this result as normal/abnormal . [facility] BudaTbqkfsbFMDVZDLGQI2625-78-16 09:09:00 Test Item Value Reference Range Interpretation Comments Macrocyte (test code = 1+ *ABN*(11/26/21 Macrocyte) 4:09 AM) [facility] PasoMnrnledEXFUOVBOXS5074-85-14 09:09:00 Test Item Value Reference Range Interpretation Comments Interleukin 6 (test code = Interleukin 14.71 6) [facility]TtxnrhbDVZXFWPTLL7698-89-47 09:09:00 Test Item Value Reference Range Interpretation Comments C-REACTIVE PROTEIN (test code = 95.9 C-REACTIVE PROTEIN) [facility]2022-06-29 09:09:00 Test Item Value Reference Range Interpretation Comments Ferritin Lvl (test code = Ferritin Lvl) 1543 22-275 [facility]2022-06-29 09:09:00 Test Item Value Reference Range Interpretation Comments Glucose Lvl (test code = Glucose Lvl) 288 70-99 [facility]2022-06-29 09:09:00 Test Item Value Reference Range Interpretation Comments BUN (test code = BUN) 40 7-22 [place] 662952-06-29 09:09:00 Test Item Value Reference Range Interpretation Comments Creatinine Lvl (test code = Creatinine 6.23 0.50-1.40 Lvl) [facility]2022-06-29 09:09:00 Test Item Value Reference Range Interpretation Comments Sodium Lvl (test code = Sodium Lvl) 134 135-145 [place] 662952-06-29 09:09:00 Test Item Value Reference Range Interpretation Comments Potassium Lvl (test code = Potassium 4.5 3.5-5.1 Lvl) [place] 662952-06-29 09:09:00 Test Item Value Reference Range Interpretation Comments Chloride Lvl (test code = Chloride Lvl) 96 95-109 [place] 662952-06-29 09:09:00 Test Item Value Reference Range Interpretation Comments CO2 (test code = CO2) 29 24-32 [place] 662952-06-29 09:09:00 Test Item Value Reference Range Interpretation Comments AGAP (test code = AGAP) 13.5 10.0-20.0 [place] 662952-06-29 09:09:00 Test Item Value Reference Range Interpretation Comments Calcium Lvl (test code = Calcium Lvl) 9.1 8.5-10.5 [place] 662952-06-29 09:09:00 Test Item Value Reference Range Interpretation Comments B/C Ratio (test code = B/C Ratio) 6 1 6-25 [place] 662952-06-29 09:09:00 Test Item Value Reference Range Interpretation Comments Total Protein (test code = Total 6.3 6.4-8.4 Protein) [place] 662952-06-29 09:09:00 Test Item Value Reference Range Interpretation Comments Albumin Lvl (test code = Albumin Lvl) 2.5 3.5-5.0 [place] 662952-06-29 09:09:00 Test Item Value Reference Range Interpretation Comments Globulin (test code = Globulin) 3.8 2.7-4.2 [place] 662952-06-29 09:09:00 Test Item Value Reference Range Interpretation Comments A/G Ratio (test code = A/G Ratio) 0.7 1 0.7-1.6 [place] 662952-06-29 09:09:00 Test Item Value Reference Range Interpretation Comments ALT (test code = ALT) 38 See_Comment [Auto mated message] The system which ge nerated this result transmit swathi reference range : <=65. The reference range was not used to interpr et this result as deny l/abnormal. [facility] [id number] 09:09:00 Test Item Value Reference Range Interpretation Comments AST (test code = AST) 31 See_Comment [Auto mated message] The system which ge nerated this result transmit swathi reference range : <=37. The reference range was not used to interpr et this result as deny l/abnormal. [facility] [id number] 09:09:00 Test Item Value Reference Range Interpretation Comments Alk Phos (test code = Alk Phos) 357 39-136 [facility] [id number] 09:09:00 Test Item Value Reference Range Interpretation Comments Bili Total (test code = Bili Total) 1.0 0.2-1.3 [facility] [id number] 09:09:00 Test Item Value Reference Range Interpretation Comments eGFR (test code = eGFR) 8 [facility] [id number] 09:09:00 Test Item Value Reference Range Interpretation Comments Magnesium Lvl (test code = Magnesium 2.0 1.8-2.4 Lvl) [place] 662952-06-29 09:09:00 Test Item Value Reference Range Interpretation Comments LDH (test code = LDH) 251 98-192 [facility] [id number] 09:09:00 Test Item Value Reference Range Interpretation Comments Procalcitonin Lvl (test 0.51 See_Comment [Au tomated message] code = Procalcitonin Lvl) Th e system which generated this result transmitted ref erence range: <=0.10. The reference range was not used to interpr et this result as normal/abnormal . [facility] PasoLmdmnqbJYHKQAMHFU9762-12-33 09:09:00 Test Item Value Reference Range Interpretation Comments D-Dimer (test code = D-Dimer) 5.06 [place] 475022-06-29 09:09:00 Test Item Value Reference Range Interpretation Comments WBC (test code = WBC) 4.8 3.7-10.4 [place] [address]-06-29 09:09:00 Test Item Value Reference Range Interpretation Comments RBC (test code = RBC) 2.14 4.70-6.10 [facility] BudaNdstjvxACPXBVDAQK7255-71-78 09:09:00 Test Item Value Reference Range Interpretation Comments Hgb (test code = Hgb) 7.7 14.0-18.0 [facility] BudaUrgngdgKBOLOZMIJL5856-23-23 09:09:00 Test Item Value Reference Range Interpretation Comments Hct (test code = Hct) 22.8 42.0-54.0 [facility] BudaGvacskxMZCLURPZYW5334-21-61 09:09:00 Test Item Value Reference Range Interpretation Comments MCV (test code = MCV) 106.5 80.0-94.0 [facility] BudaHyceuxoKWWLWPAUEV2040-92-27 09:09:00 Test Item Value Reference Range Interpretation Comments MCH (test code = MCH) 36.1 pg 27.0-31.0 [facility] BudaXtnnhzlADPMDOPVQY6557-97-44 09:09:00 Test Item Value Reference Range Interpretation Comments MCHC (test code = MCHC) 33.9 32.0-36.0 [facility] BudaZrbgosdVXHWHFKLYG6195-19-77 09:09:00 Test Item Value Reference Range Interpretation Comments RDW (test code = RDW) 21.8 11.5-14.5 [facility] BudaNsgntqlDAMPUWFHVO1054-18-36 09:09:00 Test Item Value Reference Range Interpretation Comments Platelet (test code = Platelet) 176 133-450 [facility] BudaMlmmaxxPCKMWEYBWR4798-86-00 09:09:00 Test Item Value Reference Range Interpretation Comments MPV (test code = MPV) 8.2 7.4-10.4 [facility] BudaAvqxcnsTSBQYBXPER9179-15-83 09:09:00 Test Item Value Reference Range Interpretation Comments Segs (test code = Segs) 83.6 45.0-75.0 [facility] BudaDntoqtuECHYYGTQBG2656-62-75 09:09:00 Test Item Value Reference Range Interpretation Comments Lymphocytes (test code = Lymphocytes) 10.7 20.0-40.0 [facility] BudaEhcgrnnJPTIAJVAVG6984-83-08 09:09:00 Test Item Value Reference Range Interpretation Comments Monocytes (test code = Monocytes) 4.9 2.0-12.0 [facility] BudaQhfwnojZXANNCRRUQ6006-59-27 09:09:00 Test Item Value Reference Range Interpretation Comments Eosinophils (test code = 0.4 See_Comment [A utomated message] The Eosinophils) system which ge nerated this result tra nsmitted reference range : <=4.0. The reference r samantha was not used to int erpret this result as normal/abnormal . [facility] BudaLdmhmtrJZAZFPAWRM6260-53-19 09:09:00 Test Item Value Reference Range Interpretation Comments Basophils (test code = 0.4 See_Comment [Aut omated message] The Basophils) system which ge nerated this result tra nsmitted reference range : <=1.0. The reference r samantha was not used to int erpret this result as normal/abnormal . [facility] BudaIyxggpvRPADOXXFIT8635-16-43 09:09:00 Test Item Value Reference Range Interpretation Comments Neutrophils # (test code = Neutrophils 4.0 1.5-8.1 #) [facility] BudaEurydjyLVIMLJDFWB7270-81-86 09:09:00 Test Item Value Reference Range Interpretation Comments Lymphocytes # (test code = Lymphocytes 0.5 1.0-5.5 #) [facility] BudaYsaengbNRJLQNRNCK6777-76-51 09:09:00 Test Item Value Reference Range Interpretation Comments Monocytes # (test code 0.2 See_Comment [Aut omated message] The = Monocytes #) system which generated this result tra nsmitted reference range : <=0.8. The reference r samantha was not used to int erpret this result as normal/abnormal . [facility] BudaVrtzslgSOIIQLQTUD4195-02-95 09:09:00 Test Item Value Reference Range Interpretation Comments Macrocyte (test code = 1+ *ABN*(11/26/21 Macrocyte) 4:09 AM) [facility] PasoLsqwfeyURINIIIQYG3799-39-88 09:09:00 Test Item Value Reference Range Interpretation Comments Interleukin 6 (test code = Interleukin 14.71 6) [facility] PasoCqelwxqOMDHUIHYVT4301-91-51 09:09:00 Test Item Value Reference Range Interpretation Comments C-REACTIVE PROTEIN (test code = 95.9 C-REACTIVE PROTEIN) [facility] [id number] 09:09:00 Test Item Value Reference Range Interpretation Comments Ferritin Lvl (test code = Ferritin Lvl) 1543 86-733 [facility]2022-06-29 09:09:00 Test Item Value Reference Range Interpretation Comments Glucose Lvl (test code = Glucose Lvl) 288 70-99 [facility]2022-06-29 09:09:00 Test Item Value Reference Range Interpretation Comments BUN (test code = BUN) 40 7-22 [place] 662952-06-29 09:09:00 Test Item Value Reference Range Interpretation Comments Creatinine Lvl (test code = Creatinine 6.23 0.50-1.40 Lvl) [place] 662952-06-29 09:09:00 Test Item Value Reference Range Interpretation Comments Sodium Lvl (test code = Sodium Lvl) 134 135-145 [place] 662952-06-29 09:09:00 Test Item Value Reference Range Interpretation Comments Potassium Lvl (test code = Potassium 4.5 3.5-5.1 Lvl) [place] 662952-06-29 09:09:00 Test Item Value Reference Range Interpretation Comments Chloride Lvl (test code = Chloride Lvl) 96 95-109 [place] 662952-06-29 09:09:00 Test Item Value Reference Range Interpretation Comments CO2 (test code = CO2) 29 24-32 [place] 662952-06-29 09:09:00 Test Item Value Reference Range Interpretation Comments AGAP (test code = AGAP) 13.5 10.0-20.0 [place] 662952-06-29 09:09:00 Test Item Value Reference Range Interpretation Comments Calcium Lvl (test code = Calcium Lvl) 9.1 8.5-10.5 [place] 662952-06-29 09:09:00 Test Item Value Reference Range Interpretation Comments B/C Ratio (test code = B/C Ratio) 6 1 6-25 [place] 662952-06-29 09:09:00 Test Item Value Reference Range Interpretation Comments Total Protein (test code = Total 6.3 6.4-8.4 Protein) [place] 662952-06-29 09:09:00 Test Item Value Reference Range Interpretation Comments Albumin Lvl (test code = Albumin Lvl) 2.5 3.5-5.0 [place] 662952-06-29 09:09:00 Test Item Value Reference Range Interpretation Comments Globulin (test code = Globulin) 3.8 2.7-4.2 [place] 662952-06-29 09:09:00 Test Item Value Reference Range Interpretation Comments A/G Ratio (test code = A/G Ratio) 0.7 1 0.7-1.6 [facility] [employer] [id number] 09:09:00 Test Item Value Reference Range Interpretation Comments ALT (test code = ALT) 38 See_Comment [Auto mated message] The system which ge nerated this result transmit swathi reference range : <=65. The reference range was not used to interpr et this result as deny l/abnormal. [facility] [id number] 09:09:00 Test Item Value Reference Range Interpretation Comments AST (test code = AST) 31 See_Comment [Auto mated message] The system which ge nerated this result transmit swathi reference range : <=37. The reference range was not used to interpr et this result as deny l/abnormal. [facility] [employer] [id number] 09:09:00 Test Item Value Reference Range Interpretation Comments Alk Phos (test code = Alk Phos) 357 39-136 [facility] [id number] 09:09:00 Test Item Value Reference Range Interpretation Comments Bili Total (test code = Bili Total) 1.0 0.2-1.3 [facility] [id number] 09:09:00 Test Item Value Reference Range Interpretation Comments eGFR (test code = eGFR) 8 [facility] [employer] [id number] 09:09:00 Test Item Value Reference Range Interpretation Comments Magnesium Lvl (test code = Magnesium 2.0 1.8-2.4 Lvl) [facility] [id number] 09:09:00 Test Item Value Reference Range Interpretation Comments LDH (test code = LDH) 251 98-192 [facility] [id number] 09:09:00 Test Item Value Reference Range Interpretation Comments Procalcitonin Lvl (test 0.51 See_Comment [Au tomated message] code = Procalcitonin Lvl) Th e system which generated this result transmitted ref erence range: <=0.10. The reference range was not used to interpr et this result as normal/abnormal . [facility] HospitalNxhbuulINIDKNLMLQ4400-79-49 09:09:00 Test Item Value Reference Range Interpretation Comments D-Dimer (test code = D-Dimer) 5.06 [facility] HospitalJbtgeywEPSTPMXNYN2241-56-13 09:09:00 Test Item Value Reference Range Interpretation Comments WBC (test code = WBC) 4.8 3.7-10.4 [facility] BudaJexvfjbGMOTECZJCA4661-50-94 09:09:00 Test Item Value Reference Range Interpretation Comments RBC (test code = RBC) 2.14 4.70-6.10 [facility] BudaQifvzegKNGNLXZJVE9603-27-45 09:09:00 Test Item Value Reference Range Interpretation Comments Hgb (test code = Hgb) 7.7 14.0-18.0 [facility] BudaMgrhyhfWCHRMLGABR8757-88-55 09:09:00 Test Item Value Reference Range Interpretation Comments Hct (test code = Hct) 22.8 42.0-54.0 [facility] BudaThupblwKPQYTFUHNV7272-75-78 09:09:00 Test Item Value Reference Range Interpretation Comments MCV (test code = MCV) 106.5 80.0-94.0 [facility] BudaXktrvxrFXEHXPVSAD9206-43-08 09:09:00 Test Item Value Reference Range Interpretation Comments MCH (test code = MCH) 36.1 pg 27.0-31.0 [facility] BudaXrfnmbtJIHKYGKPBG7328-15-68 09:09:00 Test Item Value Reference Range Interpretation Comments MCHC (test code = MCHC) 33.9 32.0-36.0 [facility] BudaQacbdzqZAWXKNVIVC5679-19-87 09:09:00 Test Item Value Reference Range Interpretation Comments RDW (test code = RDW) 21.8 11.5-14.5 [facility] BudaCgyexggFFODRMKTYM8048-01-65 09:09:00 Test Item Value Reference Range Interpretation Comments Platelet (test code = Platelet) 176 133-450 [facility] BudaYzdmedrDWNYVVQGJB2800-37-74 09:09:00 Test Item Value Reference Range Interpretation Comments MPV (test code = MPV) 8.2 7.4-10.4 [place] 475022-06-29 09:09:00 Test Item Value Reference Range Interpretation Comments Segs (test code = Segs) 83.6 45.0-75.0 [facility] BudaVlyrlhnXNAJOGKHZZ6375-34-25 09:09:00 Test Item Value Reference Range Interpretation Comments Lymphocytes (test code = Lymphocytes) 10.7 20.0-40.0 [place] 475022-06-29 09:09:00 Test Item Value Reference Range Interpretation Comments Monocytes (test code = Monocytes) 4.9 2.0-12.0 [facility] BudaDcgsjjtHMOCOQANAA7921-86-81 09:09:00 Test Item Value Reference Range Interpretation Comments Eosinophils (test code = 0.4 See_Comment [A utomated message] The Eosinophils) system which ge nerated this result tra nsmitted reference range : <=4.0. The reference r samantha was not used to int erpret this result as normal/abnormal . [facility] BudaEpcytoqYRSDPUJCXD7788-82-89 09:09:00 Test Item Value Reference Range Interpretation Comments Basophils (test code = 0.4 See_Comment [Aut omated message] The Basophils) system which ge nerated this result tra nsmitted reference range : <=1.0. The reference r samantha was not used to int erpret this result as normal/abnormal . [facility] BudaNoiysfkJIDMFSGJJW6796-02-16 09:09:00 Test Item Value Reference Range Interpretation Comments Neutrophils # (test code = Neutrophils 4.0 1.5-8.1 #) [facility] BudaOzbligeZAEZIBVCHQ7387-12-26 09:09:00 Test Item Value Reference Range Interpretation Comments Lymphocytes # (test code = Lymphocytes 0.5 1.0-5.5 #) [facility] BudaMgunlyhVHEILEAJDI4019-19-11 09:09:00 Test Item Value Reference Range Interpretation Comments Monocytes # (test code 0.2 See_Comment [Aut omated message] The = Monocytes #) system which generated this result tra nsmitted reference range : <=0.8. The reference r samantha was not used to int erpret this result as normal/abnormal . [facility] BudaEeyrutoVYJCEGHMCW5552-76-75 09:09:00 Test Item Value Reference Range Interpretation Comments Macrocyte (test code = 1+ *ABN*(11/26/21 Macrocyte) 4:09 AM) [facility] PasoKozvcxlEMBDJGHCXA3055-88-86 09:09:00 Test Item Value Reference Range Interpretation Comments Interleukin 6 (test code = Interleukin 14.71 6) [facility] PasoYywcfudLQGTWXBQLY8309-99-01 09:09:00 Test Item Value Reference Range Interpretation Comments C-REACTIVE PROTEIN (test code = 95.9 C-REACTIVE PROTEIN) [facility]2022-06-29 09:09:00 Test Item Value Reference Range Interpretation Comments Ferritin Lvl (test code = Ferritin Lvl) 7876 38-594 [place] 662952-06-29 09:09:00 Test Item Value Reference Range Interpretation Comments Glucose Lvl (test code = Glucose Lvl) 288 70-99 [place] 662952-06-29 09:09:00 Test Item Value Reference Range Interpretation Comments BUN (test code = BUN) 40 7-22 [place] 662952-06-29 09:09:00 Test Item Value Reference Range Interpretation Comments Creatinine Lvl (test code = Creatinine 6.23 0.50-1.40 Lvl) [place] 662952-06-29 09:09:00 Test Item Value Reference Range Interpretation Comments Sodium Lvl (test code = Sodium Lvl) 134 135-145 [place] 662952-06-29 09:09:00 Test Item Value Reference Range Interpretation Comments Potassium Lvl (test code = Potassium 4.5 3.5-5.1 Lvl) [place] 662952-06-29 09:09:00 Test Item Value Reference Range Interpretation Comments Chloride Lvl (test code = Chloride Lvl) 96 95-109 [place] 662952-06-29 09:09:00 Test Item Value Reference Range Interpretation Comments CO2 (test code = CO2) 29 24-32 [place] 662952-06-29 09:09:00 Test Item Value Reference Range Interpretation Comments AGAP (test code = AGAP) 13.5 10.0-20.0 [place] 662952-06-29 09:09:00 Test Item Value Reference Range Interpretation Comments Calcium Lvl (test code = Calcium Lvl) 9.1 8.5-10.5 [place] 662952-06-29 09:09:00 Test Item Value Reference Range Interpretation Comments B/C Ratio (test code = B/C Ratio) 6 1 6-25 [place] 662952-06-29 09:09:00 Test Item Value Reference Range Interpretation Comments Total Protein (test code = Total 6.3 6.4-8.4 Protein) [place] 662952-06-29 09:09:00 Test Item Value Reference Range Interpretation Comments Albumin Lvl (test code = Albumin Lvl) 2.5 3.5-5.0 [place] 662952-06-29 09:09:00 Test Item Value Reference Range Interpretation Comments Globulin (test code = Globulin) 3.8 2.7-4.2 [facility] HospitalSoftware Spectrum CorporationUNC HEALTH REX HOLLY [id number] 09:09:00 Test Item Value Reference Range Interpretation Comments A/G Ratio (test code = A/G Ratio) 0.7 1 0.7-1.6 [facility] Hospital[facility] Spectrum CorporationKATIE VILLE [id number] 09:09:00 Test Item Value Reference Range Interpretation Comments ALT (test code = ALT) 38 See_Comment [Auto mated message] The system which ge nerated this result transmit swathi reference range : <=65. The reference range was not used to interpr et this result as deny l/abnormal. [facility] [id number] 09:09:00 Test Item Value Reference Range Interpretation Comments AST (test code = AST) 31 See_Comment [Auto mated message] The system which ge nerated this result transmit swathi reference range : <=37. The reference range was not used to interpr et this result as deny l/abnormal. [facility] [id number] 09:09:00 Test Item Value Reference Range Interpretation Comments Alk Phos (test code = Alk Phos) 357 39-136 [facility] [id number] 09:09:00 Test Item Value Reference Range Interpretation Comments Bili Total (test code = Bili Total) 1.0 0.2-1.3 [facility] [id number] 09:09:00 Test Item Value Reference Range Interpretation Comments eGFR (test code = eGFR) 8 [facility] [id number] 09:09:00 Test Item Value Reference Range Interpretation Comments Magnesium Lvl (test code = Magnesium 2.0 1.8-2.4 Lvl) [facility] [id number] 09:09:00 Test Item Value Reference Range Interpretation Comments LDH (test code = LDH) 251 98-192 [facility] [id number] 09:09:00 Test Item Value Reference Range Interpretation Comments Procalcitonin Lvl (test 0.51 See_Comment [Au tomated message] code = Procalcitonin Lvl) Th e system which generated this result transmitted ref erence range: <=0.10. The reference range was not used to interpr et this result as normal/abnormal . [place] 475022-06-29 09:09:00 Test Item Value Reference Range Interpretation Comments D-Dimer (test code = D-Dimer) 5.06 [facility]udaX[id number] 09:09:00 Test Item Value Reference Range Interpretation Comments WBC (test code = WBC) 4.8 3.7-10.4 [facility] BudaTysccwwQGHFVAXWUR0275-52-06 09:09:00 Test Item Value Reference Range Interpretation Comments RBC (test code = RBC) 2.14 4.70-6.10 [facility] BudaRzlafrdNNPYUGKTQM5440-10-33 09:09:00 Test Item Value Reference Range Interpretation Comments Hgb (test code = Hgb) 7.7 14.0-18.0 [place] 475022-06-29 09:09:00 Test Item Value Reference Range Interpretation Comments Hct (test code = Hct) 22.8 42.0-54.0 [facility] BudaFwtgvpaJWCOLMSSSU4711-19-27 09:09:00 Test Item Value Reference Range Interpretation Comments MCV (test code = MCV) 106.5 80.0-94.0 [facility] BudaQapnagpXTXIGJFRSU0765-81-63 09:09:00 Test Item Value Reference Range Interpretation Comments MCH (test code = MCH) 36.1 pg 27.0-31.0 [facility] BudaXoukjmrHEAGRCTFHR3191-39-16 09:09:00 Test Item Value Reference Range Interpretation Comments MCHC (test code = MCHC) 33.9 32.0-36.0 [facility] BudaQsfijuiICTXULIKCD8131-90-49 09:09:00 Test Item Value Reference Range Interpretation Comments RDW (test code = RDW) 21.8 11.5-14.5 [facility] BudaWjeutncEFQZPOPAGE4697-35-62 09:09:00 Test Item Value Reference Range Interpretation Comments Platelet (test code = Platelet) 176 133-450 [facility] BudaYfpvrkvYSVAVMNRZD6490-39-02 09:09:00 Test Item Value Reference Range Interpretation Comments MPV (test code = MPV) 8.2 7.4-10.4 [facility] BudaXzrhhvhXZHRZHOOVU8296-80-23 09:09:00 Test Item Value Reference Range Interpretation Comments Segs (test code = Segs) 83.6 45.0-75.0 [facility] BudaAsooiovRHOYQHYMYO6341-58-83 09:09:00 Test Item Value Reference Range Interpretation Comments Lymphocytes (test code = Lymphocytes) 10.7 20.0-40.0 [facility] BudaMwitxziRBCJLPTPES9247-32-32 09:09:00 Test Item Value Reference Range Interpretation Comments Monocytes (test code = Monocytes) 4.9 2.0-12.0 [facility] BudaXatvbijAEOVQFFXEQ7937-06-27 09:09:00 Test Item Value Reference Range Interpretation Comments Eosinophils (test code = 0.4 See_Comment [A utomated message] The Eosinophils) system which ge nerated this result tra nsmitted reference range : <=4.0. The reference r samantha was not used to int erpret this result as normal/abnormal . [facility] BudaTtcxedlDCEUOIDMKN3153-42-22 09:09:00 Test Item Value Reference Range Interpretation Comments Basophils (test code = 0.4 See_Comment [Aut omated message] The Basophils) system which ge nerated this result tra nsmitted reference range : <=1.0. The reference r samantha was not used to int erpret this result as normal/abnormal . [facility] BudaVojubxnGQWANHYNRZ2521-16-66 09:09:00 Test Item Value Reference Range Interpretation Comments Neutrophils # (test code = Neutrophils 4.0 1.5-8.1 #) [facility] BudaPykjteqJEXRBQCUQP7103-74-02 09:09:00 Test Item Value Reference Range Interpretation Comments Lymphocytes # (test code = Lymphocytes 0.5 1.0-5.5 #) [place] 475022-06-29 09:09:00 Test Item Value Reference Range Interpretation Comments Monocytes # (test code 0.2 See_Comment [Aut omated message] The = Monocytes #) system which generated this result tra nsmitted reference range : <=0.8. The reference r samantha was not used to int erpret this result as normal/abnormal . [facility] BudaNkqdssfAWBJGCWXJZ4358-81-78 09:09:00 Test Item Value Reference Range Interpretation Comments Macrocyte (test code = 1+ *ABN*(11/26/21 Macrocyte) 4:09 AM) [facility]ZxssbkrLLIJGDIDDN8502-62-29 09:09:00 Test Item Value Reference Range Interpretation Comments Interleukin 6 (test code = Interleukin 14.71 6) [place] 790622-06-29 09:09:00 Test Item Value Reference Range Interpretation Comments C-REACTIVE PROTEIN (test code = 95.9 C-REACTIVE PROTEIN) [facility]2022-06-29 09:09:00 Test Item Value Reference Range Interpretation Comments Ferritin Lvl (test code = Ferritin Lvl) 1543 22275 [place] 662952-06-29 09:09:00 Test Item Value Reference Range Interpretation Comments Glucose Lvl (test code = Glucose Lvl) 288 70-99 [place] 662952-06-29 09:09:00 Test Item Value Reference Range Interpretation Comments BUN (test code = BUN) 40 7-22 [place] 662952-06-29 09:09:00 Test Item Value Reference Range Interpretation Comments Creatinine Lvl (test code = Creatinine 6.23 0.50-1.40 Lvl) [place] 662952-06-29 09:09:00 Test Item Value Reference Range Interpretation Comments Sodium Lvl (test code = Sodium Lvl) 134 135-145 [place] 662952-06-29 09:09:00 Test Item Value Reference Range Interpretation Comments Potassium Lvl (test code = Potassium 4.5 3.5-5.1 Lvl) [place] 662952-06-29 09:09:00 Test Item Value Reference Range Interpretation Comments Chloride Lvl (test code = Chloride Lvl) 96 95-109 [place] 662952-06-29 09:09:00 Test Item Value Reference Range Interpretation Comments CO2 (test code = CO2) 29 24-32 [place] 662952-06-29 09:09:00 Test Item Value Reference Range Interpretation Comments AGAP (test code = AGAP) 13.5 10.0-20.0 [place] 662952-06-29 09:09:00 Test Item Value Reference Range Interpretation Comments Calcium Lvl (test code = Calcium Lvl) 9.1 8.5-10.5 [place] 662952-06-29 09:09:00 Test Item Value Reference Range Interpretation Comments B/C Ratio (test code = B/C Ratio) 6 1 6-25 [place] 662952-06-29 09:09:00 Test Item Value Reference Range Interpretation Comments Total Protein (test code = Total 6.3 6.4-8.4 Protein) [place] 662952-06-29 09:09:00 Test Item Value Reference Range Interpretation Comments Albumin Lvl (test code = Albumin Lvl) 2.5 3.5-5.0 [place] 662952-06-29 09:09:00 Test Item Value Reference Range Interpretation Comments Globulin (test code = Globulin) 3.8 2.7-4.2 [place] 662952-06-29 09:09:00 Test Item Value Reference Range Interpretation Comments A/G Ratio (test code = A/G Ratio) 0.7 1 0.7-1.6 [place] 662952-06-29 09:09:00 Test Item Value Reference Range Interpretation Comments ALT (test code = ALT) 38 See_Comment [Auto mated message] The system which ge nerated this result transmit swathi reference range : <=65. The reference range was not used to interpr et this result as deny l/abnormal. [place] 662952-06-29 09:09:00 Test Item Value Reference Range Interpretation Comments AST (test code = AST) 31 See_Comment [Auto mated message] The system which ge nerated this result transmit swathi reference range : <=37. The reference range was not used to interpr et this result as deny l/abnormal. [place] 662952-06-29 09:09:00 Test Item Value Reference Range Interpretation Comments Alk Phos (test code = Alk Phos) 357 39-136 [place] 662952-06-29 09:09:00 Test Item Value Reference Range Interpretation Comments Bili Total (test code = Bili Total) 1.0 0.2-1.3 [place] 662952-06-29 09:09:00 Test Item Value Reference Range Interpretation Comments eGFR (test code = eGFR) 8 [place] 662952-06-29 09:09:00 Test Item Value Reference Range Interpretation Comments Magnesium Lvl (test code = Magnesium 2.0 1.8-2.4 Lvl) [place] 662952-06-29 09:09:00 Test Item Value Reference Range Interpretation Comments LDH (test code = LDH) 251 98-192 [place] 662952-06-29 09:09:00 Test Item Value Reference Range Interpretation Comments Procalcitonin Lvl (test 0.51 See_Comment [Au tomated message] code = Procalcitonin Lvl) Th e system which generated this result transmitted ref erence range: <=0.10. The reference range was not used to interpr et this result as normal/abnormal . [facility] BudaYlcjqqvOGUCMZYGZU9151-67-87 09:09:00 Test Item Value Reference Range Interpretation Comments D-Dimer (test code = D-Dimer) 5.06 [facility] BudaLmwfkomIHKWIRSFXI3834-75-75 09:09:00 Test Item Value Reference Range Interpretation Comments WBC (test code = WBC) 4.8 3.7-10.4 [place] 475022-06-29 09:09:00 Test Item Value Reference Range Interpretation Comments RBC (test code = RBC) 2.14 4.70-6.10 [place] 475022-06-29 09:09:00 Test Item Value Reference Range Interpretation Comments Hgb (test code = Hgb) 7.7 14.0-18.0 [place] 475022-06-29 09:09:00 Test Item Value Reference Range Interpretation Comments Hct (test code = Hct) 22.8 42.0-54.0 [place] 475022-06-29 09:09:00 Test Item Value Reference Range Interpretation Comments MCV (test code = MCV) 106.5 80.0-94.0 [facility] BudaHepylpwRMHEXRALBN9562-17-10 09:09:00 Test Item Value Reference Range Interpretation Comments MCH (test code = MCH) 36.1 pg 27.0-31.0 [facility] BudaChplvzcDNOAUMYPPW9993-06-57 09:09:00 Test Item Value Reference Range Interpretation Comments MCHC (test code = MCHC) 33.9 32.0-36.0 [facility] BudaAfmnkfrFKJJIRBMFY6417-01-71 09:09:00 Test Item Value Reference Range Interpretation Comments RDW (test code = RDW) 21.8 11.5-14.5 [facility] BudaRgkqdnmDSTIXNTVVX0114-61-42 09:09:00 Test Item Value Reference Range Interpretation Comments Platelet (test code = Platelet) 176 133-450 [place] 475022-06-29 09:09:00 Test Item Value Reference Range Interpretation Comments MPV (test code = MPV) 8.2 7.4-10.4 [facility] BudaTeuwpokVJGRPVPROV4197-60-51 09:09:00 Test Item Value Reference Range Interpretation Comments Segs (test code = Segs) 83.6 45.0-75.0 [facility] BudaVnpjihaEUXQYDONQW4878-46-10 09:09:00 Test Item Value Reference Range Interpretation Comments Lymphocytes (test code = Lymphocytes) 10.7 20.0-40.0 [facility] BudaRsjpnmsTHRBQYJKRA5360-10-03 09:09:00 Test Item Value Reference Range Interpretation Comments Monocytes (test code = Monocytes) 4.9 2.0-12.0 [facility] BudaFzmecxbJODGALUGAF0077-73-64 09:09:00 Test Item Value Reference Range Interpretation Comments Eosinophils (test code = 0.4 See_Comment [A utomated message] The Eosinophils) system which ge nerated this result tra nsmitted reference range : <=4.0. The reference r samantha was not used to int erpret this result as normal/abnormal . [facility] BudaObaagxxQSGYQBOCCE0345-59-05 09:09:00 Test Item Value Reference Range Interpretation Comments Basophils (test code = 0.4 See_Comment [Aut omated message] The Basophils) system which ge nerated this result tra nsmitted reference range : <=1.0. The reference r samantha was not used to int erpret this result as normal/abnormal . [facility] BudaJejcblyPRYJOUCWSO5293-06-64 09:09:00 Test Item Value Reference Range Interpretation Comments Neutrophils # (test code = Neutrophils 4.0 1.5-8.1 #) [facility] BudaWpgurbvZDNPILHMXH2795-59-16 09:09:00 Test Item Value Reference Range Interpretation Comments Lymphocytes # (test code = Lymphocytes 0.5 1.0-5.5 #) [facility] BudaUjtwusvQUIXKWQALB9197-27-34 09:09:00 Test Item Value Reference Range Interpretation Comments Monocytes # (test code 0.2 See_Comment [Aut omated message] The = Monocytes #) system which generated this result tra nsmitted reference range : <=0.8. The reference r samantha was not used to int erpret this result as normal/abnormal . [facility] BudaGlzweprQISCGSJWHI7359-08-96 09:09:00 Test Item Value Reference Range Interpretation Comments Macrocyte (test code = 1+ *ABN*(11/26/21 Macrocyte) 4:09 AM) [facility]anoFtpuizmSBSCVBDHLO1313-09-69 09:09:00 Test Item Value Reference Range Interpretation Comments Interleukin 6 (test code = Interleukin 14.71 6) [facility]MigwxtpVWIRFNXYIS2640-95-16 09:09:00 Test Item Value Reference Range Interpretation Comments C-REACTIVE PROTEIN (test code = 95.9 C-REACTIVE PROTEIN) [facility]2022-06-29 09:09:00 Test Item Value Reference Range Interpretation Comments Ferritin Lvl (test code = Ferritin Lvl) 1543 22-275 [facility]2022-06-29 09:09:00 Test Item Value Reference Range Interpretation Comments Glucose Lvl (test code = Glucose Lvl) 288 70-99 [facility]2022-06-29 09:09:00 Test Item Value Reference Range Interpretation Comments BUN (test code = BUN) 40 7-22 [facility]2022-06-29 09:09:00 Test Item Value Reference Range Interpretation Comments Creatinine Lvl (test code = Creatinine 6.23 0.50-1.40 Lvl) [facility]2022-06-29 09:09:00 Test Item Value Reference Range Interpretation Comments Sodium Lvl (test code = Sodium Lvl) 134 135-145 [facility]2022-06-29 09:09:00 Test Item Value Reference Range Interpretation Comments Potassium Lvl (test code = Potassium 4.5 3.5-5.1 Lvl) [facility]2022-06-29 09:09:00 Test Item Value Reference Range Interpretation Comments Chloride Lvl (test code = Chloride Lvl) 96 95-109 [facility]2022-06-29 09:09:00 Test Item Value Reference Range Interpretation Comments CO2 (test code = CO2) 29 24-32 [facility]2022-06-29 09:09:00 Test Item Value Reference Range Interpretation Comments AGAP (test code = AGAP) 13.5 10.0-20.0 [place] 662952-06-29 09:09:00 Test Item Value Reference Range Interpretation Comments Calcium Lvl (test code = Calcium Lvl) 9.1 8.5-10.5 [facility]2022-06-29 09:09:00 Test Item Value Reference Range Interpretation Comments B/C Ratio (test code = B/C Ratio) 6 1 6-25 [place] 412[address]-06-29 09:09:00 Test Item Value Reference Range Interpretation Comments Total Protein (test code = Total 6.3 6.4-8.4 Protein) [place] 662952-06-29 09:09:00 Test Item Value Reference Range Interpretation Comments Albumin Lvl (test code = Albumin Lvl) 2.5 3.5-5.0 [place] 662952-06-29 09:09:00 Test Item Value Reference Range Interpretation Comments Globulin (test code = Globulin) 3.8 2.7-4.2 [place] 662952-06-29 09:09:00 Test Item Value Reference Range Interpretation Comments A/G Ratio (test code = A/G Ratio) 0.7 1 0.7-1.6 [place] 662952-06-29 09:09:00 Test Item Value Reference Range Interpretation Comments ALT (test code = ALT) 38 See_Comment [Auto mated message] The system which ge nerated this result transmit swathi reference range : <=65. The reference range was not used to interpr et this result as deny l/abnormal. [place] 662952-06-29 09:09:00 Test Item Value Reference Range Interpretation Comments AST (test code = AST) 31 See_Comment [Auto mated message] The system which ge nerated this result transmit swathi reference range : <=37. The reference range was not used to interpr et this result as deny l/abnormal. [place] 662952-06-29 09:09:00 Test Item Value Reference Range Interpretation Comments Alk Phos (test code = Alk Phos) 357 39-136 [facility] PasoSoloingles[facility] YGYNO5948-30-89 09:09:00 Test Item Value Reference Range Interpretation Comments Bili Total (test code = Bili Total) 1.0 0.2-1.3 [place] 662952-06-29 09:09:00 Test Item Value Reference Range Interpretation Comments eGFR (test code = eGFR) 8 [place] 662952-06-29 09:09:00 Test Item Value Reference Range Interpretation Comments Magnesium Lvl (test code = Magnesium 2.0 1.8-2.4 Lvl) [place] 662952-06-29 09:09:00 Test Item Value Reference Range Interpretation Comments LDH (test code = LDH) 251 98-192 [facility]2022-06-29 09:09:00 Test Item Value Reference Range Interpretation Comments Procalcitonin Lvl (test 0.51 See_Comment [Au tomated message] code = Procalcitonin Lvl) Th e system which generated this result transmitted ref erence range: <=0.10. The reference range was not used to interpr et this result as normal/abnormal . [facility] BudaWziuwgdRZVLSWVNUJ0921-98-06 09:09:00 Test Item Value Reference Range Interpretation Comments D-Dimer (test code = D-Dimer) 5.06 [facility] BudaGsqcbeoUONFKEYKLF7567-99-28 09:09:00 Test Item Value Reference Range Interpretation Comments WBC (test code = WBC) 4.8 3.7-10.4 [facility] BudaBlezhrvKIXMYFNKCS5294-39-78 09:09:00 Test Item Value Reference Range Interpretation Comments RBC (test code = RBC) 2.14 4.70-6.10 [facility] BudaXhpvqdcEOPELKFJIE1097-96-53 09:09:00 Test Item Value Reference Range Interpretation Comments Hgb (test code = Hgb) 7.7 14.0-18.0 [facility] BudaTeklftuKFZEPPSKGJ6193-66-56 09:09:00 Test Item Value Reference Range Interpretation Comments Hct (test code = Hct) 22.8 42.0-54.0 [facility] BudaJfiekvgBAQSHPWKKG7927-89-82 09:09:00 Test Item Value Reference Range Interpretation Comments MCV (test code = MCV) 106.5 80.0-94.0 [facility] BudaLeizieeMORHMRDEYE1053-34-91 09:09:00 Test Item Value Reference Range Interpretation Comments MCH (test code = MCH) 36.1 pg 27.0-31.0 [facility] BudaNppgocuXDYHHJAXIC1510-70-67 09:09:00 Test Item Value Reference Range Interpretation Comments MCHC (test code = MCHC) 33.9 32.0-36.0 [facility] BudaQjeiahwRVQHQWREBI4968-40-93 09:09:00 Test Item Value Reference Range Interpretation Comments RDW (test code = RDW) 21.8 11.5-14.5 [facility] BudaAquesnzZTZFAIIHBV0423-74-62 09:09:00 Test Item Value Reference Range Interpretation Comments Platelet (test code = Platelet) 176 133-450 [place] 475022-06-29 09:09:00 Test Item Value Reference Range Interpretation Comments MPV (test code = MPV) 8.2 7.4-10.4 [place] 475022-06-29 09:09:00 Test Item Value Reference Range Interpretation Comments Segs (test code = Segs) 83.6 45.0-75.0 [place] 01134-06-29 09:09:00 Test Item Value Reference Range Interpretation Comments Lymphocytes (test code = Lymphocytes) 10.7 20.0-40.0 [place] 01134-06-29 09:09:00 Test Item Value Reference Range Interpretation Comments Monocytes (test code = Monocytes) 4.9 2.0-12.0 [facility]2022-06-29 09:09:00 Test Item Value Reference Range Interpretation Comments Ferritin Lvl (test code = Ferritin Lvl) 1543 22275 [place] 662952-06-29 09:09:00 Test Item Value Reference Range Interpretation Comments Glucose Lvl (test code = Glucose Lvl) 288 70-99 [place] 662952-06-29 09:09:00 Test Item Value Reference Range Interpretation Comments BUN (test code = BUN) 40 7-22 [place] 662952-06-29 09:09:00 Test Item Value Reference Range Interpretation Comments Creatinine Lvl (test code = Creatinine 6.23 0.50-1.40 Lvl) [place] 662952-06-29 09:09:00 Test Item Value Reference Range Interpretation Comments Sodium Lvl (test code = Sodium Lvl) 134 135-145 [place] 662952-06-29 09:09:00 Test Item Value Reference Range Interpretation Comments Potassium Lvl (test code = Potassium 4.5 3.5-5.1 Lvl) [place] 662952-06-29 09:09:00 Test Item Value Reference Range Interpretation Comments Chloride Lvl (test code = Chloride Lvl) 96 95-109 [place] 662952-06-29 09:09:00 Test Item Value Reference Range Interpretation Comments CO2 (test code = CO2) 29 24-32 [place] 475022-06-29 09:09:00 Test Item Value Reference Range Interpretation Comments Eosinophils (test code = 0.4 See_Comment [A utomated message] The Eosinophils) system which ge nerated this result tra nsmitted reference range : <=4.0. The reference r samantha was not used to int erpret this result as normal/abnormal . [place] 662952-06-29 09:09:00 Test Item Value Reference Range Interpretation Comments AGAP (test code = AGAP) 13.5 10.0-20.0 [place] 662952-06-29 09:09:00 Test Item Value Reference Range Interpretation Comments Calcium Lvl (test code = Calcium Lvl) 9.1 8.5-10.5 [place] 662952-06-29 09:09:00 Test Item Value Reference Range Interpretation Comments B/C Ratio (test code = B/C Ratio) 6 1 6-25 [place] 662952-06-29 09:09:00 Test Item Value Reference Range Interpretation Comments Total Protein (test code = Total 6.3 6.4-8.4 Protein) [place] 662952-06-29 09:09:00 Test Item Value Reference Range Interpretation Comments Albumin Lvl (test code = Albumin Lvl) 2.5 3.5-5.0 [place] 662952-06-29 09:09:00 Test Item Value Reference Range Interpretation Comments Globulin (test code = Globulin) 3.8 2.7-4.2 [place] 412[address]-06-29 09:09:00 Test Item Value Reference Range Interpretation Comments A/G Ratio (test code = A/G Ratio) 0.7 1 0.7-1.6 [place] 412[address]-06-29 09:09:00 Test Item Value Reference Range Interpretation Comments ALT (test code = ALT) 38 See_Comment [Auto mated message] The system which ge nerated this result transmit swathi reference range : <=65. The reference range was not used to interpr et this result as deny l/abnormal. [place] 662952-06-29 09:09:00 Test Item Value Reference Range Interpretation Comments AST (test code = AST) 31 See_Comment [Auto mated message] The system which ge nerated this result transmit swathi reference range : <=37. The reference range was not used to interpr et this result as deny l/abnormal. [place] 662952-06-29 09:09:00 Test Item Value Reference Range Interpretation Comments Alk Phos (test code = Alk Phos) 357 39-136 [place] 475022-06-29 09:09:00 Test Item Value Reference Range Interpretation Comments Basophils (test code = 0.4 See_Comment [Aut omated message] The Basophils) system which ge nerated this result tra nsmitted reference range : <=1.0. The reference r samantha was not used to int erpret this result as normal/abnormal . [place] 662952-06-29 09:09:00 Test Item Value Reference Range Interpretation Comments Bili Total (test code = Bili Total) 1.0 0.2-1.3 [place] 662952-06-29 09:09:00 Test Item Value Reference Range Interpretation Comments eGFR (test code = eGFR) 8 [place] 662952-06-29 09:09:00 Test Item Value Reference Range Interpretation Comments Magnesium Lvl (test code = Magnesium 2.0 1.8-2.4 Lvl) [place] 662952-06-29 09:09:00 Test Item Value Reference Range Interpretation Comments LDH (test code = LDH) 251 98-192 [place] 662952-06-29 09:09:00 Test Item Value Reference Range Interpretation Comments Procalcitonin Lvl (test 0.51 See_Comment [Au tomated message] code = Procalcitonin Lvl) Th e system which generated this result transmitted ref erence range: <=0.10. The reference range was not used to interpr et this result as normal/abnormal . [place] 475022-06-29 09:09:00 Test Item Value Reference Range Interpretation Comments D-Dimer (test code = D-Dimer) 5.06 [place] [address]-06-29 09:09:00 Test Item Value Reference Range Interpretation Comments WBC (test code = WBC) 4.8 3.7-10.4 [place] [address]-06-29 09:09:00 Test Item Value Reference Range Interpretation Comments RBC (test code = RBC) 2.14 4.70-6.10 [place] [address]-06-29 09:09:00 Test Item Value Reference Range Interpretation Comments Hgb (test code = Hgb) 7.7 14.0-18.0 [id number] 09:09:00 Test Item Value Reference Range Interpretation Comments Hct (test code = Hct) 22.8 42.0-54.0 [place] 475022-06-29 09:09:00 Test Item Value Reference Range Interpretation Comments Neutrophils # (test code = Neutrophils 4.0 1.5-8.1 #) [facility] [id number] 09:09:00 Test Item Value Reference Range Interpretation Comments MCV (test code = MCV) 106.5 80.0-94.0 [place] 475022-06-29 09:09:00 Test Item Value Reference Range Interpretation Comments MCH (test code = MCH) 36.1 pg 27.0-31.0 [place] 475022-06-29 09:09:00 Test Item Value Reference Range Interpretation Comments MCHC (test code = MCHC) 33.9 32.0-36.0 [facility] BudaPpbhdujXJFLZXQCZG2245-26-27 09:09:00 Test Item Value Reference Range Interpretation Comments RDW (test code = RDW) 21.8 11.5-14.5 [place] 475022-06-29 09:09:00 Test Item Value Reference Range Interpretation Comments Platelet (test code = Platelet) 176 133-450 [facility] [id number] 09:09:00 Test Item Value Reference Range Interpretation Comments MPV (test code = MPV) 8.2 7.4-10.4 [place] 475022-06-29 09:09:00 Test Item Value Reference Range Interpretation Comments Segs (test code = Segs) 83.6 45.0-75.0 [place] 475022-06-29 09:09:00 Test Item Value Reference Range Interpretation Comments Lymphocytes (test code = Lymphocytes) 10.7 20.0-40.0 [place] 475022-06-29 09:09:00 Test Item Value Reference Range Interpretation Comments Monocytes (test code = Monocytes) 4.9 2.0-12.0 [place] 475022-06-29 09:09:00 Test Item Value Reference Range Interpretation Comments Eosinophils (test code = 0.4 See_Comment [A utomated message] The Eosinophils) system which ge nerated this result tra nsmitted reference range : <=4.0. The reference r samantha was not used to int erpret this result as normal/abnormal . [facility] BudaJwovbwfHVSRRUDKFL7142-95-15 09:09:00 Test Item Value Reference Range Interpretation Comments Lymphocytes # (test code = Lymphocytes 0.5 1.0-5.5 #) [facility] BudaBeypnlcPBHUTTIPFO6476-60-78 09:09:00 Test Item Value Reference Range Interpretation Comments Basophils (test code = 0.4 See_Comment [Aut omated message] The Basophils) system which ge nerated this result tra nsmitted reference range : <=1.0. The reference r samantha was not used to int erpret this result as normal/abnormal . [facility] [id number] 09:09:00 Test Item Value Reference Range Interpretation Comments Neutrophils # (test code = Neutrophils 4.0 1.5-8.1 #) [facility] BudaYlbjmtoIRHJIPZMKC8355-93-09 09:09:00 Test Item Value Reference Range Interpretation Comments Lymphocytes # (test code = Lymphocytes 0.5 1.0-5.5 #) [facility] BudaGrjbiquNANITTQVDU4083-00-27 09:09:00 Test Item Value Reference Range Interpretation Comments Monocytes # (test code 0.2 See_Comment [Aut omated message] The = Monocytes #) system which generated this result tra nsmitted reference range : <=0.8. The reference r samantha was not used to int erpret this result as normal/abnormal . [facility] BudaIysswaaVMWDQXEKPD4889-23-09 09:09:00 Test Item Value Reference Range Interpretation Comments Macrocyte (test code = 1+ *ABN*(11/26/21 Macrocyte) 4:09 AM) [place] 790622-06-29 09:09:00 Test Item Value Reference Range Interpretation Comments Interleukin 6 (test code = Interleukin 14.71 6) [place] 790622-06-29 09:09:00 Test Item Value Reference Range Interpretation Comments C-REACTIVE PROTEIN (test code = 95.9 C-REACTIVE PROTEIN) [place] 475022-06-29 09:09:00 Test Item Value Reference Range Interpretation Comments Monocytes # (test code 0.2 See_Comment [Aut omated message] The = Monocytes #) system which generated this result tra nsmitted reference range : <=0.8. The reference r samantha was not used to int erpret this result as normal/abnormal . [facility] [id number] 09:09:00 Test Item Value Reference Range Interpretation Comments Macrocyte (test code = 1+ *ABN*(11/26/21 Macrocyte) 4:09 AM) [facility]XkihvvoISKBQVNURY2088-12-15 09:09:00 Test Item Value Reference Range Interpretation Comments Interleukin 6 (test code = Interleukin 14.71 6) [place] 790622-06-29 09:09:00 Test Item Value Reference Range Interpretation Comments C-REACTIVE PROTEIN (test code = 95.9 C-REACTIVE PROTEIN) [facility]2022-06-29 09:09:00 Test Item Value Reference Range Interpretation Comments Ferritin Lvl (test code = Ferritin Lvl) 1543 22-275 [facility]2022-06-29 09:09:00 Test Item Value Reference Range Interpretation Comments Glucose Lvl (test code = Glucose Lvl) 288 70-99 [place] 662952-06-29 09:09:00 Test Item Value Reference Range Interpretation Comments BUN (test code = BUN) 40 7-22 [place] 662952-06-29 09:09:00 Test Item Value Reference Range Interpretation Comments Creatinine Lvl (test code = Creatinine 6.23 0.50-1.40 Lvl) [facility]2022-06-29 09:09:00 Test Item Value Reference Range Interpretation Comments Sodium Lvl (test code = Sodium Lvl) 134 135-145 [place] 662952-06-29 09:09:00 Test Item Value Reference Range Interpretation Comments Potassium Lvl (test code = Potassium 4.5 3.5-5.1 Lvl) [place] 662952-06-29 09:09:00 Test Item Value Reference Range Interpretation Comments Chloride Lvl (test code = Chloride Lvl) 96 95-109 [place] 662952-06-29 09:09:00 Test Item Value Reference Range Interpretation Comments CO2 (test code = CO2) 29 24-32 [place] 662952-06-29 09:09:00 Test Item Value Reference Range Interpretation Comments AGAP (test code = AGAP) 13.5 10.0-20.0 [place] 662952-06-29 09:09:00 Test Item Value Reference Range Interpretation Comments Calcium Lvl (test code = Calcium Lvl) 9.1 8.5-10.5 [place] 662952-06-29 09:09:00 Test Item Value Reference Range Interpretation Comments B/C Ratio (test code = B/C Ratio) 6 1 6-25 [place] 662952-06-29 09:09:00 Test Item Value Reference Range Interpretation Comments Total Protein (test code = Total 6.3 6.4-8.4 Protein) [place] 662952-06-29 09:09:00 Test Item Value Reference Range Interpretation Comments Albumin Lvl (test code = Albumin Lvl) 2.5 3.5-5.0 [place] 662952-06-29 09:09:00 Test Item Value Reference Range Interpretation Comments Globulin (test code = Globulin) 3.8 2.7-4.2 [place] 662952-06-29 09:09:00 Test Item Value Reference Range Interpretation Comments A/G Ratio (test code = A/G Ratio) 0.7 1 0.7-1.6 [place] 662952-06-29 09:09:00 Test Item Value Reference Range Interpretation Comments ALT (test code = ALT) 38 See_Comment [Auto mated message] The system which ge nerated this result transmit swathi reference range : <=65. The reference range was not used to interpr et this result as deny l/abnormal. [facility] [email or web address][facility] [id number] 09:09:00 Test Item Value Reference Range Interpretation Comments AST (test code = AST) 31 See_Comment [Auto mated message] The system which ge nerated this result transmit swathi reference range : <=37. The reference range was not used to interpr et this result as deny l/abnormal. [place] 662952-06-29 09:09:00 Test Item Value Reference Range Interpretation Comments Alk Phos (test code = Alk Phos) 357 39-136 [place] 662952-06-29 09:09:00 Test Item Value Reference Range Interpretation Comments Bili Total (test code = Bili Total) 1.0 0.2-1.3 [place] 662952-06-29 09:09:00 Test Item Value Reference Range Interpretation Comments eGFR (test code = eGFR) 8 [place] 662952-06-29 09:09:00 Test Item Value Reference Range Interpretation Comments Magnesium Lvl (test code = Magnesium 2.0 1.8-2.4 Lvl) [place] 662952-06-29 09:09:00 Test Item Value Reference Range Interpretation Comments LDH (test code = LDH) 251 98-192 [facility]2022-06-29 09:09:00 Test Item Value Reference Range Interpretation Comments Procalcitonin Lvl (test 0.51 See_Comment [Au tomated message] code = Procalcitonin Lvl) e system which generated this result transmitted ref erence range: <=0.10. The reference range was not used to interpr et this result as normal/abnormal . [place] 475022-06-29 09:09:00 Test Item Value Reference Range Interpretation Comments D-Dimer (test code = D-Dimer) 5.06 [place] 475022-06-29 09:09:00 Test Item Value Reference Range Interpretation Comments WBC (test code = WBC) 4.8 3.7-10.4 [place] [address]-06-29 09:09:00 Test Item Value Reference Range Interpretation Comments RBC (test code = RBC) 2.14 4.70-6.10 [place] 475022-06-29 09:09:00 Test Item Value Reference Range Interpretation Comments Hgb (test code = Hgb) 7.7 14.0-18.0 [place] [address]-06-29 09:09:00 Test Item Value Reference Range Interpretation Comments Hct (test code = Hct) 22.8 42.0-54.0 [place] [address]-06-29 09:09:00 Test Item Value Reference Range Interpretation Comments MCV (test code = MCV) 106.5 80.0-94.0 [place] [address]-06-29 09:09:00 Test Item Value Reference Range Interpretation Comments MCH (test code = MCH) 36.1 pg 27.0-31.0 [place] 475022-06-29 09:09:00 Test Item Value Reference Range Interpretation Comments MCHC (test code = MCHC) 33.9 32.0-36.0 [facility] [id number] 09:09:00 Test Item Value Reference Range Interpretation Comments RDW (test code = RDW) 21.8 11.5-14.5 [place] 475022-06-29 09:09:00 Test Item Value Reference Range Interpretation Comments Platelet (test code = Platelet) 176 133-450 [facility] BudaIzkabqfTZKAXYRDEH9068-07-95 09:09:00 Test Item Value Reference Range Interpretation Comments MPV (test code = MPV) 8.2 7.4-10.4 [place] 475022-06-29 09:09:00 Test Item Value Reference Range Interpretation Comments Segs (test code = Segs) 83.6 45.0-75.0 [place] 475022-06-29 09:09:00 Test Item Value Reference Range Interpretation Comments Lymphocytes (test code = Lymphocytes) 10.7 20.0-40.0 [facility] BudaHxqnxixKTJXBXJQOI3275-99-93 09:09:00 Test Item Value Reference Range Interpretation Comments Monocytes (test code = Monocytes) 4.9 2.0-12.0 [facility] BudaGbmljsyXRQPTUJDRS5289-97-05 09:09:00 Test Item Value Reference Range Interpretation Comments Eosinophils (test code = 0.4 See_Comment [A utomated message] The Eosinophils) system which ge nerated this result tra nsmitted reference range : <=4.0. The reference r samantha was not used to int erpret this result as normal/abnormal . [facility] BudaTkfqdfjILTHCVDJGS0647-07-95 09:09:00 Test Item Value Reference Range Interpretation Comments Basophils (test code = 0.4 See_Comment [Aut omated message] The Basophils) system which ge nerated this result tra nsmitted reference range : <=1.0. The reference r samantha was not used to int erpret this result as normal/abnormal . [facility] BudaEhtypitRUBCRXTLDQ1584-92-72 09:09:00 Test Item Value Reference Range Interpretation Comments Neutrophils # (test code = Neutrophils 4.0 1.5-8.1 #) [facility] BudaQcxxbbtFFIEFWERQI6340-29-05 09:09:00 Test Item Value Reference Range Interpretation Comments Lymphocytes # (test code = Lymphocytes 0.5 1.0-5.5 #) [facility] BudaHrfrzijMDIGXCIJGJ4206-85-27 09:09:00 Test Item Value Reference Range Interpretation Comments Monocytes # (test code 0.2 See_Comment [Aut omated message] The = Monocytes #) system which generated this result tra nsmitted reference range : <=0.8. The reference r samantha was not used to int erpret this result as normal/abnormal . [facility] [id number] 09:09:00 Test Item Value Reference Range Interpretation Comments Macrocyte (test code = 1+ *ABN*(11/26/21 Macrocyte) 4:09 AM) [facility] PasoOewfanmLCGGQAFHPT2691-31-71 09:09:00 Test Item Value Reference Range Interpretation Comments Interleukin 6 (test code = Interleukin 14.71 6) [place] 790622-06-29 09:09:00 Test Item Value Reference Range Interpretation Comments C-REACTIVE PROTEIN (test code = 95.9 C-REACTIVE PROTEIN) [facility]2022-06-29 09:09:00 Test Item Value Reference Range Interpretation Comments Ferritin Lvl (test code = Ferritin Lvl) 1543 22-275 [facility]2022-06-29 09:09:00 Test Item Value Reference Range Interpretation Comments Glucose Lvl (test code = Glucose Lvl) 288 70-99 [facility]2022-06-29 09:09:00 Test Item Value Reference Range Interpretation Comments BUN (test code = BUN) 40 7-22 [place] 662952-06-29 09:09:00 Test Item Value Reference Range Interpretation Comments Creatinine Lvl (test code = Creatinine 6.23 0.50-1.40 Lvl) [place] 662952-06-29 09:09:00 Test Item Value Reference Range Interpretation Comments Sodium Lvl (test code = Sodium Lvl) 134 135-145 [place] 662952-06-29 09:09:00 Test Item Value Reference Range Interpretation Comments Potassium Lvl (test code = Potassium 4.5 3.5-5.1 Lvl) [facility]2022-06-29 09:09:00 Test Item Value Reference Range Interpretation Comments Chloride Lvl (test code = Chloride Lvl) 96 95-109 [place] 662952-06-29 09:09:00 Test Item Value Reference Range Interpretation Comments CO2 (test code = CO2) 29 24-32 [place] 662952-06-29 09:09:00 Test Item Value Reference Range Interpretation Comments AGAP (test code = AGAP) 13.5 10.0-20.0 [place] 662952-06-29 09:09:00 Test Item Value Reference Range Interpretation Comments Calcium Lvl (test code = Calcium Lvl) 9.1 8.5-10.5 [place] 662952-06-29 09:09:00 Test Item Value Reference Range Interpretation Comments B/C Ratio (test code = B/C Ratio) 6 1 6-25 [facility] [email or web address][facility] [id number] 09:09:00 Test Item Value Reference Range Interpretation Comments Total Protein (test code = Total 6.3 6.4-8.4 Protein) [place] 662952-06-29 09:09:00 Test Item Value Reference Range Interpretation Comments Albumin Lvl (test code = Albumin Lvl) 2.5 3.5-5.0 [place] 662952-06-29 09:09:00 Test Item Value Reference Range Interpretation Comments Globulin (test code = Globulin) 3.8 2.7-4.2 [facility] PasoSoloingles[facility] [id number] 09:09:00 Test Item Value Reference Range Interpretation Comments A/G Ratio (test code = A/G Ratio) 0.7 1 0.7-1.6 [place] 662952-06-29 09:09:00 Test Item Value Reference Range Interpretation Comments ALT (test code = ALT) 38 See_Comment [Auto mated message] The system which ge nerated this result transmit swathi reference range : <=65. The reference range was not used to interpr et this result as deny l/abnormal. [facility] PasoSoloingles.[facility] [employer] [id number] 09:09:00 Test Item Value Reference Range Interpretation Comments AST (test code = AST) 31 See_Comment [Auto mated message] The system which ge nerated this result transmit swatih reference range : <=37. The reference range was not used to interpr et this result as deny l/abnormal. [facility] PasoSoloingles[facility] [id number] 09:09:00 Test Item Value Reference Range Interpretation Comments Alk Phos (test code = Alk Phos) 357 39-136 [facility]2022-06-29 09:09:00 Test Item Value Reference Range Interpretation Comments Bili Total (test code = Bili Total) 1.0 0.2-1.3 [facility]2022-06-29 09:09:00 Test Item Value Reference Range Interpretation Comments eGFR (test code = eGFR) 8 [facility]2022-06-29 09:09:00 Test Item Value Reference Range Interpretation Comments Magnesium Lvl (test code = Magnesium 2.0 1.8-2.4 Lvl) [facility]2022-06-29 09:09:00 Test Item Value Reference Range Interpretation Comments LDH (test code = LDH) 251 98-192 [facility]2022-06-29 09:09:00 Test Item Value Reference Range Interpretation Comments Procalcitonin Lvl (test 0.51 See_Comment [Au tomated message] code = Procalcitonin Lvl) e system which generated this result transmitted ref erence range: <=0.10. The reference range was not used to interpr et this result as normal/abnormal . [facility] BudaWcsqjrnXRBPEIBWTH9766-27-12 09:09:00 Test Item Value Reference Range Interpretation Comments D-Dimer (test code = D-Dimer) 5.06 [facility] BudaQoltqynLODJUYNQHS4611-97-07 09:09:00 Test Item Value Reference Range Interpretation Comments WBC (test code = WBC) 4.8 3.7-10.4 [place] 475022-06-29 09:09:00 Test Item Value Reference Range Interpretation Comments RBC (test code = RBC) 2.14 4.70-6.10 [place] 475022-06-29 09:09:00 Test Item Value Reference Range Interpretation Comments Hgb (test code = Hgb) 7.7 14.0-18.0 [place] 475022-06-29 09:09:00 Test Item Value Reference Range Interpretation Comments Hct (test code = Hct) 22.8 42.0-54.0 [place] 475022-06-29 09:09:00 Test Item Value Reference Range Interpretation Comments MCV (test code = MCV) 106.5 80.0-94.0 [place] [address]-06-29 09:09:00 Test Item Value Reference Range Interpretation Comments MCH (test code = MCH) 36.1 pg 27.0-31.0 [facility] BudaOqicnrjSDSXMVPRRQ3405-43-02 09:09:00 Test Item Value Reference Range Interpretation Comments MCHC (test code = MCHC) 33.9 32.0-36.0 [facility] [id number] 09:09:00 Test Item Value Reference Range Interpretation Comments RDW (test code = RDW) 21.8 11.5-14.5 [place] 475022-06-29 09:09:00 Test Item Value Reference Range Interpretation Comments Platelet (test code = Platelet) 176 133-450 [facility] [id number] 09:09:00 Test Item Value Reference Range Interpretation Comments MPV (test code = MPV) 8.2 7.4-10.4 [facility] BudaErestevCUVPZZYGOP0780-78-88 09:09:00 Test Item Value Reference Range Interpretation Comments Segs (test code = Segs) 83.6 45.0-75.0 [facility] BudaHdsoddfLRWFOKUKXD1151-33-03 09:09:00 Test Item Value Reference Range Interpretation Comments Lymphocytes (test code = Lymphocytes) 10.7 20.0-40.0 [facility] BudaTidtanaBPXENDFVQD4466-19-63 09:09:00 Test Item Value Reference Range Interpretation Comments Monocytes (test code = Monocytes) 4.9 2.0-12.0 [facility] [id number] 09:09:00 Test Item Value Reference Range Interpretation Comments Eosinophils (test code = 0.4 See_Comment [A utomated message] The Eosinophils) system which ge nerated this result tra nsmitted reference range : <=4.0. The reference r samantha was not used to int erpret this result as normal/abnormal . [place] 475022-06-29 09:09:00 Test Item Value Reference Range Interpretation Comments Basophils (test code = 0.4 See_Comment [Aut omated message] The Basophils) system which ge nerated this result tra nsmitted reference range : <=1.0. The reference r samantha was not used to int erpret this result as normal/abnormal . [facility] [id number] 09:09:00 Test Item Value Reference Range Interpretation Comments Neutrophils # (test code = Neutrophils 4.0 1.5-8.1 #) [facility] BudaJspnbqfQGWEKLJOUQ8559-95-11 09:09:00 Test Item Value Reference Range Interpretation Comments Lymphocytes # (test code = Lymphocytes 0.5 1.0-5.5 #) [place] 475022-06-29 09:09:00 Test Item Value Reference Range Interpretation Comments Monocytes # (test code 0.2 See_Comment [Aut omated message] The = Monocytes #) system which generated this result tra nsmitted reference range : <=0.8. The reference r samantha was not used to int erpret this result as normal/abnormal . [place] 475022-06-29 09:09:00 Test Item Value Reference Range Interpretation Comments Macrocyte (test code = 1+ *ABN*(11/26/21 Macrocyte) 4:09 AM) [place] 790622-06-29 09:09:00 Test Item Value Reference Range Interpretation Comments Interleukin 6 (test code = Interleukin 14.71 6) [place] 790622-06-29 09:09:00 Test Item Value Reference Range Interpretation Comments C-REACTIVE PROTEIN (test code = 95.9 C-REACTIVE PROTEIN) [place] 475022-06-28 12:33:00 Test Item Value Reference Range Interpretation Comments Segs (test code = Segs) 84.8 45.0-75.0 [place] 475022-06-28 12:33:00 Test Item Value Reference Range Interpretation Comments Lymphocytes (test code = Lymphocytes) 11.6 20.0-40.0 [place] 475022-06-28 12:33:00 Test Item Value Reference Range Interpretation Comments Monocytes (test code = Monocytes) 2.8 2.0-12.0 [place] [address]-06-28 12:33:00 Test Item Value Reference Range Interpretation Comments Eosinophils (test code = 0.4 See_Comment [A utomated message] The Eosinophils) system which ge nerated this result tra nsmitted reference range : <=4.0. The reference r samantha was not used to int erpret this result as normal/abnormal . [facility] [id number] 12:33:00 Test Item Value Reference Range Interpretation Comments Basophils (test code = 0.4 See_Comment [Aut omated message] The Basophils) system which ge nerated this result tra nsmitted reference range : <=1.0. The reference r samantha was not used to int erpret this result as normal/abnormal . [facility] BudaJsqxzorIXFGWVPFRK5058-64-60 12:33:00 Test Item Value Reference Range Interpretation Comments Neutrophils # (test code = Neutrophils 4.4 1.5-8.1 #) [facility] BudaZkabaelIILWTMEBRJ5033-69-57 12:33:00 Test Item Value Reference Range Interpretation Comments Lymphocytes # (test code = Lymphocytes 0.6 1.0-5.5 #) [facility] BudaLfqbmtvSJMEEESYEN4412-89-37 12:33:00 Test Item Value Reference Range Interpretation Comments Monocytes # (test code 0.1 See_Comment [Aut omated message] The = Monocytes #) system which generated this result tra nsmitted reference range : <=0.8. The reference r samantha was not used to int erpret this result as normal/abnormal . [facility] BudaYjaqpzeVDVMOMHKHV0130-33-34 12:33:00 Test Item Value Reference Range Interpretation Comments Macrocyte (test code = 1+ *ABN*(11/25/21 Macrocyte) 7:33 AM) [place] 475022-06-28 12:33:00 Test Item Value Reference Range Interpretation Comments WBC (test code = WBC) 5.2 3.7-10.4 [place] 475022-06-28 12:33:00 Test Item Value Reference Range Interpretation Comments RBC (test code = RBC) 2.18 4.70-6.10 [place] 475022-06-28 12:33:00 Test Item Value Reference Range Interpretation Comments Hgb (test code = Hgb) 7.8 14.0-18.0 [place] [address]-06-28 12:33:00 Test Item Value Reference Range Interpretation Comments Hct (test code = Hct) 23.6 42.0-54.0 [place] 475022-06-28 12:33:00 Test Item Value Reference Range Interpretation Comments MCV (test code = MCV) 108.4 80.0-94.0 [place] 475022-06-28 12:33:00 Test Item Value Reference Range Interpretation Comments MCH (test code = MCH) 35.9 pg 27.0-31.0 [place] 475022-06-28 12:33:00 Test Item Value Reference Range Interpretation Comments MCHC (test code = MCHC) 33.1 32.0-36.0 [id number] 12:33:00 Test Item Value Reference Range Interpretation Comments RDW (test code = RDW) 21.5 11.5-14.5 [place] 475022-06-28 12:33:00 Test Item Value Reference Range Interpretation Comments Platelet (test code = Platelet) 167 133-450 [facility] [id number] 12:33:00 Test Item Value Reference Range Interpretation Comments MPV (test code = MPV) 7.6 7.4-10.4 [place] 475022-06-28 12:33:00 Test Item Value Reference Range Interpretation Comments Segs (test code = Segs) 84.8 45.0-75.0 [place] 475022-06-28 12:33:00 Test Item Value Reference Range Interpretation Comments Lymphocytes (test code = Lymphocytes) 11.6 20.0-40.0 [place] 475022-06-28 12:33:00 Test Item Value Reference Range Interpretation Comments Monocytes (test code = Monocytes) 2.8 2.0-12.0 [id number] 12:33:00 Test Item Value Reference Range Interpretation Comments Eosinophils (test code = 0.4 See_Comment [A utomated message] The Eosinophils) system which ge nerated this result tra nsmitted reference range : <=4.0. The reference r samantha was not used to int erpret this result as normal/abnormal . [facility] [id number] 12:33:00 Test Item Value Reference Range Interpretation Comments Basophils (test code = 0.4 See_Comment [Aut omated message] The Basophils) system which ge nerated this result tra nsmitted reference range : <=1.0. The reference r samantha was not used to int erpret this result as normal/abnormal . [facility] [id number] 12:33:00 Test Item Value Reference Range Interpretation Comments Neutrophils # (test code = Neutrophils 4.4 1.5-8.1 #) [place] 475022-06-28 12:33:00 Test Item Value Reference Range Interpretation Comments Lymphocytes # (test code = Lymphocytes 0.6 1.0-5.5 #) [place] 475022-06-28 12:33:00 Test Item Value Reference Range Interpretation Comments Monocytes # (test code 0.1 See_Comment [Aut omated message] The = Monocytes #) system which generated this result tra nsmitted reference range : <=0.8. The reference r samantha was not used to int erpret this result as normal/abnormal . [facility] [id number] 12:33:00 Test Item Value Reference Range Interpretation Comments Macrocyte (test code = 1+ *ABN*(11/25/21 Macrocyte) 7:33 AM) [place] 475022-06-28 12:33:00 Test Item Value Reference Range Interpretation Comments WBC (test code = WBC) 5.2 3.7-10.4 [place] 475022-06-28 12:33:00 Test Item Value Reference Range Interpretation Comments RBC (test code = RBC) 2.18 4.70-6.10 [place] 475022-06-28 12:33:00 Test Item Value Reference Range Interpretation Comments Hgb (test code = Hgb) 7.8 14.0-18.0 [place] 475022-06-28 12:33:00 Test Item Value Reference Range Interpretation Comments Hct (test code = Hct) 23.6 42.0-54.0 [place] 475022-06-28 12:33:00 Test Item Value Reference Range Interpretation Comments MCV (test code = MCV) 108.4 80.0-94.0 [place] 475022-06-28 12:33:00 Test Item Value Reference Range Interpretation Comments MCH (test code = MCH) 35.9 pg 27.0-31.0 [place] 475022-06-28 12:33:00 Test Item Value Reference Range Interpretation Comments MCHC (test code = MCHC) 33.1 32.0-36.0 [place] 475022-06-28 12:33:00 Test Item Value Reference Range Interpretation Comments RDW (test code = RDW) 21.5 11.5-14.5 [place] 475022-06-28 12:33:00 Test Item Value Reference Range Interpretation Comments Platelet (test code = Platelet) 167 133-450 [place] 475022-06-28 12:33:00 Test Item Value Reference Range Interpretation Comments MPV (test code = MPV) 7.6 7.4-10.4 [place] 475022-06-28 12:33:00 Test Item Value Reference Range Interpretation Comments Segs (test code = Segs) 84.8 45.0-75.0 [place] 475022-06-28 12:33:00 Test Item Value Reference Range Interpretation Comments Lymphocytes (test code = Lymphocytes) 11.6 20.0-40.0 [place] [address]-06-28 12:33:00 Test Item Value Reference Range Interpretation Comments Monocytes (test code = Monocytes) 2.8 2.0-12.0 [place] [address]-06-28 12:33:00 Test Item Value Reference Range Interpretation Comments Eosinophils (test code = 0.4 See_Comment [A utomated message] The Eosinophils) system which ge nerated this result tra nsmitted reference range : <=4.0. The reference r samantha was not used to int erpret this result as normal/abnormal . [place] 475022-06-28 12:33:00 Test Item Value Reference Range Interpretation Comments Basophils (test code = 0.4 See_Comment [Aut omated message] The Basophils) system which ge nerated this result tra nsmitted reference range : <=1.0. The reference r samantha was not used to int erpret this result as normal/abnormal . [place] 475022-06-28 12:33:00 Test Item Value Reference Range Interpretation Comments Neutrophils # (test code = Neutrophils 4.4 1.5-8.1 #) [place] 475022-06-28 12:33:00 Test Item Value Reference Range Interpretation Comments Lymphocytes # (test code = Lymphocytes 0.6 1.0-5.5 #) [place] 475022-06-28 12:33:00 Test Item Value Reference Range Interpretation Comments Monocytes # (test code 0.1 See_Comment [Aut omated message] The = Monocytes #) system which generated this result tra nsmitted reference range : <=0.8. The reference r samantha was not used to int erpret this result as normal/abnormal . [facility] [id number] 12:33:00 Test Item Value Reference Range Interpretation Comments Macrocyte (test code = 1+ *ABN*(11/25/21 Macrocyte) 7:33 AM) [place] 475022-06-28 12:33:00 Test Item Value Reference Range Interpretation Comments WBC (test code = WBC) 5.2 3.7-10.4 [place] 475022-06-28 12:33:00 Test Item Value Reference Range Interpretation Comments RBC (test code = RBC) 2.18 4.70-6.10 [place] 475022-06-28 12:33:00 Test Item Value Reference Range Interpretation Comments Hgb (test code = Hgb) 7.8 14.0-18.0 [place] 475022-06-28 12:33:00 Test Item Value Reference Range Interpretation Comments Hct (test code = Hct) 23.6 42.0-54.0 [place] 475022-06-28 12:33:00 Test Item Value Reference Range Interpretation Comments MCV (test code = MCV) 108.4 80.0-94.0 [place] 475022-06-28 12:33:00 Test Item Value Reference Range Interpretation Comments MCH (test code = MCH) 35.9 pg 27.0-31.0 [facility] [id number] 12:33:00 Test Item Value Reference Range Interpretation Comments MCHC (test code = MCHC) 33.1 32.0-36.0 [facility] [id number] 12:33:00 Test Item Value Reference Range Interpretation Comments RDW (test code = RDW) 21.5 11.5-14.5 [place] 475022-06-28 12:33:00 Test Item Value Reference Range Interpretation Comments Platelet (test code = Platelet) 167 133-450 [facility] [id number] 12:33:00 Test Item Value Reference Range Interpretation Comments MPV (test code = MPV) 7.6 7.4-10.4 [place] 475022-06-28 12:33:00 Test Item Value Reference Range Interpretation Comments Segs (test code = Segs) 84.8 45.0-75.0 [facility] [id number] 12:33:00 Test Item Value Reference Range Interpretation Comments Lymphocytes (test code = Lymphocytes) 11.6 20.0-40.0 [place] 475022-06-28 12:33:00 Test Item Value Reference Range Interpretation Comments Monocytes (test code = Monocytes) 2.8 2.0-12.0 [place] 475022-06-28 12:33:00 Test Item Value Reference Range Interpretation Comments Eosinophils (test code = 0.4 See_Comment [A utomated message] The Eosinophils) system which ge nerated this result tra nsmitted reference range : <=4.0. The reference r samantha was not used to int erpret this result as normal/abnormal . [facility] [id number] 12:33:00 Test Item Value Reference Range Interpretation Comments Basophils (test code = 0.4 See_Comment [Aut omated message] The Basophils) system which ge nerated this result tra nsmitted reference range : <=1.0. The reference r samantha was not used to int erpret this result as normal/abnormal . [facility] [id number] 12:33:00 Test Item Value Reference Range Interpretation Comments Neutrophils # (test code = Neutrophils 4.4 1.5-8.1 #) [facility] BudaOcaulazXLJZXSQCQF0241-01-11 12:33:00 Test Item Value Reference Range Interpretation Comments Lymphocytes # (test code = Lymphocytes 0.6 1.0-5.5 #) [place] 475022-06-28 12:33:00 Test Item Value Reference Range Interpretation Comments Monocytes # (test code 0.1 See_Comment [Aut omated message] The = Monocytes #) system which generated this result tra nsmitted reference range : <=0.8. The reference r samantha was not used to int erpret this result as normal/abnormal . [facility] [id number] 12:33:00 Test Item Value Reference Range Interpretation Comments Macrocyte (test code = 1+ *ABN*(11/25/21 Macrocyte) 7:33 AM) [place] 475022-06-28 12:33:00 Test Item Value Reference Range Interpretation Comments WBC (test code = WBC) 5.2 3.7-10.4 [facility] [id number] 12:33:00 Test Item Value Reference Range Interpretation Comments RBC (test code = RBC) 2.18 4.70-6.10 [facility] [id number] 12:33:00 Test Item Value Reference Range Interpretation Comments Hgb (test code = Hgb) 7.8 14.0-18.0 [place] 475022-06-28 12:33:00 Test Item Value Reference Range Interpretation Comments Hct (test code = Hct) 23.6 42.0-54.0 [facility] [id number] 12:33:00 Test Item Value Reference Range Interpretation Comments MCV (test code = MCV) 108.4 80.0-94.0 [place] 475022-06-28 12:33:00 Test Item Value Reference Range Interpretation Comments MCH (test code = MCH) 35.9 pg 27.0-31.0 [facility] [id number] 12:33:00 Test Item Value Reference Range Interpretation Comments MCHC (test code = MCHC) 33.1 32.0-36.0 [facility] [id number] 12:33:00 Test Item Value Reference Range Interpretation Comments RDW (test code = RDW) 21.5 11.5-14.5 [facility] [id number] 12:33:00 Test Item Value Reference Range Interpretation Comments Platelet (test code = Platelet) 167 133-450 [facility] B[id number] 12:33:00 Test Item Value Reference Range Interpretation Comments MPV (test code = MPV) 7.6 7.4-10.4 [facility] [id number] 12:33:00 Test Item Value Reference Range Interpretation Comments Segs (test code = Segs) 84.8 45.0-75.0 [place] 475022-06-28 12:33:00 Test Item Value Reference Range Interpretation Comments Lymphocytes (test code = Lymphocytes) 11.6 20.0-40.0 [facility] [id number] 12:33:00 Test Item Value Reference Range Interpretation Comments Monocytes (test code = Monocytes) 2.8 2.0-12.0 [place] 475022-06-28 12:33:00 Test Item Value Reference Range Interpretation Comments Eosinophils (test code = 0.4 See_Comment [A utomated message] The Eosinophils) system which ge nerated this result tra nsmitted reference range : <=4.0. The reference r samantha was not used to int erpret this result as normal/abnormal . [facility] BudaYwsutkmDWYTVETIWM0525-13-05 12:33:00 Test Item Value Reference Range Interpretation Comments Basophils (test code = 0.4 See_Comment [Aut omated message] The Basophils) system which ge nerated this result tra nsmitted reference range : <=1.0. The reference r samantha was not used to int erpret this result as normal/abnormal . [place] 475022-06-28 12:33:00 Test Item Value Reference Range Interpretation Comments Neutrophils # (test code = Neutrophils 4.4 1.5-8.1 #) [facility] [id number] 12:33:00 Test Item Value Reference Range Interpretation Comments Lymphocytes # (test code = Lymphocytes 0.6 1.0-5.5 #) [facility] [id number] 12:33:00 Test Item Value Reference Range Interpretation Comments Monocytes # (test code 0.1 See_Comment [Aut omated message] The = Monocytes #) system which generated this result tra nsmitted reference range : <=0.8. The reference r samantha was not used to int erpret this result as normal/abnormal . [facility] [id number] 12:33:00 Test Item Value Reference Range Interpretation Comments Macrocyte (test code = 1+ *ABN*(11/25/21 Macrocyte) 7:33 AM) [place] 475022-06-28 12:33:00 Test Item Value Reference Range Interpretation Comments WBC (test code = WBC) 5.2 3.7-10.4 [place] 475022-06-28 12:33:00 Test Item Value Reference Range Interpretation Comments RBC (test code = RBC) 2.18 4.70-6.10 [place] 475022-06-28 12:33:00 Test Item Value Reference Range Interpretation Comments Hgb (test code = Hgb) 7.8 14.0-18.0 [place] 475022-06-28 12:33:00 Test Item Value Reference Range Interpretation Comments Hct (test code = Hct) 23.6 42.0-54.0 [place] 475022-06-28 12:33:00 Test Item Value Reference Range Interpretation Comments MCV (test code = MCV) 108.4 80.0-94.0 [place] [address]-06-28 12:33:00 Test Item Value Reference Range Interpretation Comments MCH (test code = MCH) 35.9 pg 27.0-31.0 [place] 475022-06-28 12:33:00 Test Item Value Reference Range Interpretation Comments MCHC (test code = MCHC) 33.1 32.0-36.0 [place] 475022-06-28 12:33:00 Test Item Value Reference Range Interpretation Comments RDW (test code = RDW) 21.5 11.5-14.5 [place] 475022-06-28 12:33:00 Test Item Value Reference Range Interpretation Comments Platelet (test code = Platelet) 167 133-450 [place] 475022-06-28 12:33:00 Test Item Value Reference Range Interpretation Comments MPV (test code = MPV) 7.6 7.4-10.4 [place] 475022-06-28 12:33:00 Test Item Value Reference Range Interpretation Comments Segs (test code = Segs) 84.8 45.0-75.0 [place] 475022-06-28 12:33:00 Test Item Value Reference Range Interpretation Comments Lymphocytes (test code = Lymphocytes) 11.6 20.0-40.0 [place] [address]-06-28 12:33:00 Test Item Value Reference Range Interpretation Comments Monocytes (test code = Monocytes) 2.8 2.0-12.0 [place] [address]-06-28 12:33:00 Test Item Value Reference Range Interpretation Comments Eosinophils (test code = 0.4 See_Comment [A utomated message] The Eosinophils) system which ge nerated this result tra nsmitted reference range : <=4.0. The reference r samantha was not used to int erpret this result as normal/abnormal . [place] 475022-06-28 12:33:00 Test Item Value Reference Range Interpretation Comments Basophils (test code = 0.4 See_Comment [Aut omated message] The Basophils) system which ge nerated this result tra nsmitted reference range : <=1.0. The reference r samantha was not used to int erpret this result as normal/abnormal . [facility] [id number] 12:33:00 Test Item Value Reference Range Interpretation Comments Neutrophils # (test code = Neutrophils 4.4 1.5-8.1 #) [facility] [id number] 12:33:00 Test Item Value Reference Range Interpretation Comments Lymphocytes # (test code = Lymphocytes 0.6 1.0-5.5 #) [facility] BudaLkrtidrUUBWPZHYBH8815-45-17 12:33:00 Test Item Value Reference Range Interpretation Comments Monocytes # (test code 0.1 See_Comment [Aut omated message] The = Monocytes #) system which generated this result tra nsmitted reference range : <=0.8. The reference r samantha was not used to int erpret this result as normal/abnormal . [facility] [id number] 12:33:00 Test Item Value Reference Range Interpretation Comments Macrocyte (test code = 1+ *ABN*(11/25/21 Macrocyte) 7:33 AM) [place] 475022-06-28 12:33:00 Test Item Value Reference Range Interpretation Comments WBC (test code = WBC) 5.2 3.7-10.4 [place] 475022-06-28 12:33:00 Test Item Value Reference Range Interpretation Comments RBC (test code = RBC) 2.18 4.70-6.10 [place] 475022-06-28 12:33:00 Test Item Value Reference Range Interpretation Comments Hgb (test code = Hgb) 7.8 14.0-18.0 [place] [address]-06-28 12:33:00 Test Item Value Reference Range Interpretation Comments Hct (test code = Hct) 23.6 42.0-54.0 [place] 475022-06-28 12:33:00 Test Item Value Reference Range Interpretation Comments MCV (test code = MCV) 108.4 80.0-94.0 [place] 475022-06-28 12:33:00 Test Item Value Reference Range Interpretation Comments MCH (test code = MCH) 35.9 pg 27.0-31.0 [facility] [id number] 12:33:00 Test Item Value Reference Range Interpretation Comments MCHC (test code = MCHC) 33.1 32.0-36.0 [facility] [id number] 12:33:00 Test Item Value Reference Range Interpretation Comments RDW (test code = RDW) 21.5 11.5-14.5 [facility] [id number] 12:33:00 Test Item Value Reference Range Interpretation Comments Platelet (test code = Platelet) 167 133-450 [place] 475022-06-28 12:33:00 Test Item Value Reference Range Interpretation Comments MPV (test code = MPV) 7.6 7.4-10.4 [place] 475022-06-28 12:33:00 Test Item Value Reference Range Interpretation Comments Segs (test code = Segs) 84.8 45.0-75.0 [place] 475022-06-28 12:33:00 Test Item Value Reference Range Interpretation Comments Lymphocytes (test code = Lymphocytes) 11.6 20.0-40.0 [facility] BudaQkufqtoKPAPGTMVFL3634-06-03 12:33:00 Test Item Value Reference Range Interpretation Comments Monocytes (test code = Monocytes) 2.8 2.0-12.0 [facility] BudaJpwjiedCFKPAOTVJC2403-27-09 12:33:00 Test Item Value Reference Range Interpretation Comments Eosinophils (test code = 0.4 See_Comment [A utomated message] The Eosinophils) system which ge nerated this result tra nsmitted reference range : <=4.0. The reference r samantha was not used to int erpret this result as normal/abnormal . [facility] [id number] 12:33:00 Test Item Value Reference Range Interpretation Comments Basophils (test code = 0.4 See_Comment [Aut omated message] The Basophils) system which ge nerated this result tra nsmitted reference range : <=1.0. The reference r samantha was not used to int erpret this result as normal/abnormal . [place] 475022-06-28 12:33:00 Test Item Value Reference Range Interpretation Comments Neutrophils # (test code = Neutrophils 4.4 1.5-8.1 #) [place] 475022-06-28 12:33:00 Test Item Value Reference Range Interpretation Comments Lymphocytes # (test code = Lymphocytes 0.6 1.0-5.5 #) [place] 475022-06-28 12:33:00 Test Item Value Reference Range Interpretation Comments Monocytes # (test code 0.1 See_Comment [Aut omated message] The = Monocytes #) system which generated this result tra nsmitted reference range : <=0.8. The reference r samantha was not used to int erpret this result as normal/abnormal . [place] 475022-06-28 12:33:00 Test Item Value Reference Range Interpretation Comments Macrocyte (test code = 1+ *ABN*(11/25/21 Macrocyte) 7:33 AM) [place] 475022-06-28 12:33:00 Test Item Value Reference Range Interpretation Comments WBC (test code = WBC) 5.2 3.7-10.4 [place] 475022-06-28 12:33:00 Test Item Value Reference Range Interpretation Comments RBC (test code = RBC) 2.18 4.70-6.10 [place] 475022-06-28 12:33:00 Test Item Value Reference Range Interpretation Comments Hgb (test code = Hgb) 7.8 14.0-18.0 [place] 475022-06-28 12:33:00 Test Item Value Reference Range Interpretation Comments Hct (test code = Hct) 23.6 42.0-54.0 [place] 475022-06-28 12:33:00 Test Item Value Reference Range Interpretation Comments MCV (test code = MCV) 108.4 80.0-94.0 [place] 475022-06-28 12:33:00 Test Item Value Reference Range Interpretation Comments MCH (test code = MCH) 35.9 pg 27.0-31.0 [place] 475022-06-28 12:33:00 Test Item Value Reference Range Interpretation Comments MCHC (test code = MCHC) 33.1 32.0-36.0 [place] 475022-06-28 12:33:00 Test Item Value Reference Range Interpretation Comments RDW (test code = RDW) 21.5 11.5-14.5 [place] 475022-06-28 12:33:00 Test Item Value Reference Range Interpretation Comments Platelet (test code = Platelet) 167 133-450 [place] 475022-06-28 12:33:00 Test Item Value Reference Range Interpretation Comments MPV (test code = MPV) 7.6 7.4-10.4 [place] 475022-06-28 12:33:00 Test Item Value Reference Range Interpretation Comments Segs (test code = Segs) 84.8 45.0-75.0 [place] 475022-06-28 12:33:00 Test Item Value Reference Range Interpretation Comments Lymphocytes (test code = Lymphocytes) 11.6 20.0-40.0 [place] 475022-06-28 12:33:00 Test Item Value Reference Range Interpretation Comments Monocytes (test code = Monocytes) 2.8 2.0-12.0 [place] 475022-06-28 12:33:00 Test Item Value Reference Range Interpretation Comments Eosinophils (test code = 0.4 See_Comment [A utomated message] The Eosinophils) system which ge nerated this result tra nsmitted reference range : <=4.0. The reference r samantha was not used to int erpret this result as normal/abnormal . [facility] [id number] 12:33:00 Test Item Value Reference Range Interpretation Comments Basophils (test code = 0.4 See_Comment [Aut omated message] The Basophils) system which ge nerated this result tra nsmitted reference range : <=1.0. The reference r samantha was not used to int erpret this result as normal/abnormal . [facility] [id number] 12:33:00 Test Item Value Reference Range Interpretation Comments Neutrophils # (test code = Neutrophils 4.4 1.5-8.1 #) [place] 475022-06-28 12:33:00 Test Item Value Reference Range Interpretation Comments Lymphocytes # (test code = Lymphocytes 0.6 1.0-5.5 #) [place] 475022-06-28 12:33:00 Test Item Value Reference Range Interpretation Comments Monocytes # (test code 0.1 See_Comment [Aut omated message] The = Monocytes #) system which generated this result tra nsmitted reference range : <=0.8. The reference r samantha was not used to int erpret this result as normal/abnormal . [facility] [id number] 12:33:00 Test Item Value Reference Range Interpretation Comments Macrocyte (test code = 1+ *ABN*(11/25/21 Macrocyte) 7:33 AM) [facility] [id number] 12:33:00 Test Item Value Reference Range Interpretation Comments WBC (test code = WBC) 5.2 3.7-10.4 [facility] [id number] 12:33:00 Test Item Value Reference Range Interpretation Comments RBC (test code = RBC) 2.18 4.70-6.10 [place] 475022-06-28 12:33:00 Test Item Value Reference Range Interpretation Comments Hgb (test code = Hgb) 7.8 14.0-18.0 [place] 475022-06-28 12:33:00 Test Item Value Reference Range Interpretation Comments Hct (test code = Hct) 23.6 42.0-54.0 [facility] [id number] 12:33:00 Test Item Value Reference Range Interpretation Comments MCV (test code = MCV) 108.4 80.0-94.0 [place] 475022-06-28 12:33:00 Test Item Value Reference Range Interpretation Comments MCH (test code = MCH) 35.9 pg 27.0-31.0 [place] 475022-06-28 12:33:00 Test Item Value Reference Range Interpretation Comments MCHC (test code = MCHC) 33.1 32.0-36.0 [place] 475022-06-28 12:33:00 Test Item Value Reference Range Interpretation Comments RDW (test code = RDW) 21.5 11.5-14.5 [place] 475022-06-28 12:33:00 Test Item Value Reference Range Interpretation Comments Platelet (test code = Platelet) 167 133-450 [facility]udaOorutxmHUWUOOCTVH0079-78-87 12:33:00 Test Item Value Reference Range Interpretation Comments MPV (test code = MPV) 7.6 7.4-10.4 [place] 475022-06-28 12:33:00 Test Item Value Reference Range Interpretation Comments Segs (test code = Segs) 84.8 45.0-75.0 [place] 475022-06-28 12:33:00 Test Item Value Reference Range Interpretation Comments Lymphocytes (test code = Lymphocytes) 11.6 20.0-40.0 [place] 475022-06-28 12:33:00 Test Item Value Reference Range Interpretation Comments Monocytes (test code = Monocytes) 2.8 2.0-12.0 [place] 475022-06-28 12:33:00 Test Item Value Reference Range Interpretation Comments Eosinophils (test code = 0.4 See_Comment [A utomated message] The Eosinophils) system which ge nerated this result tra nsmitted reference range : <=4.0. The reference r samantha was not used to int erpret this result as normal/abnormal . [place] 475022-06-28 12:33:00 Test Item Value Reference Range Interpretation Comments Basophils (test code = 0.4 See_Comment [Aut omated message] The Basophils) system which ge nerated this result tra nsmitted reference range : <=1.0. The reference r samantha was not used to int erpret this result as normal/abnormal . [facility] [id number] 12:33:00 Test Item Value Reference Range Interpretation Comments Neutrophils # (test code = Neutrophils 4.4 1.5-8.1 #) [place] 475022-06-28 12:33:00 Test Item Value Reference Range Interpretation Comments Lymphocytes # (test code = Lymphocytes 0.6 1.0-5.5 #) [place] 475022-06-28 12:33:00 Test Item Value Reference Range Interpretation Comments Monocytes # (test code 0.1 See_Comment [Aut omated message] The = Monocytes #) system which generated this result tra nsmitted reference range : <=0.8. The reference r samantha was not used to int erpret this result as normal/abnormal . [place] 475022-06-28 12:33:00 Test Item Value Reference Range Interpretation Comments Macrocyte (test code = 1+ *ABN*(11/25/21 Macrocyte) 7:33 AM) [place] 475022-06-28 12:33:00 Test Item Value Reference Range Interpretation Comments WBC (test code = WBC) 5.2 3.7-10.4 [facility] Bu[id number] 12:33:00 Test Item Value Reference Range Interpretation Comments RBC (test code = RBC) 2.18 4.70-6.10 [facility] BudaGvordbmZRKUCSGQIG8982-45-25 12:33:00 Test Item Value Reference Range Interpretation Comments Hgb (test code = Hgb) 7.8 14.0-18.0 [facility] BudaQrzuiwfGUWSDCYJEV3032-44-25 12:33:00 Test Item Value Reference Range Interpretation Comments Hct (test code = Hct) 23.6 42.0-54.0 [facility] BudaMqxxufiGQGBWHVNLE2654-25-76 12:33:00 Test Item Value Reference Range Interpretation Comments MCV (test code = MCV) 108.4 80.0-94.0 [facility] BudaPusqbouJFHPPFYQIP9611-42-75 12:33:00 Test Item Value Reference Range Interpretation Comments MCH (test code = MCH) 35.9 pg 27.0-31.0 [facility] BudaRnahctnDKAAAVNFYY6970-06-69 12:33:00 Test Item Value Reference Range Interpretation Comments MCHC (test code = MCHC) 33.1 32.0-36.0 [facility] BudaSxjpvcuXFEHNMVFQV0356-52-37 12:33:00 Test Item Value Reference Range Interpretation Comments RDW (test code = RDW) 21.5 11.5-14.5 [facility] BudaIgszvxzEYSZDNUPWM4717-00-18 12:33:00 Test Item Value Reference Range Interpretation Comments Platelet (test code = Platelet) 167 133-450 [facility] BudaXgddaldRYVQQFCZIL0054-54-05 12:33:00 Test Item Value Reference Range Interpretation Comments MPV (test code = MPV) 7.6 7.4-10.4 [facility]2022-06-28 11:17:00 Test Item Value Reference Range Interpretation Comments Vitamin B12 Lvl (test code = Vitamin 1508 B12 Lvl) [facility]2022-06-28 11:17:00 Test Item Value Reference Range Interpretation Comments Folate Lvl (test code = Folate Lvl) 22.3 [facility]2022-06-28 11:17:00 Test Item Value Reference Range Interpretation Comments Ferritin Lvl (test code = Ferritin Lvl) 1109 11-180 [facility]2022-06-28 11:17:00 Test Item Value Reference Range Interpretation Comments Glucose Lvl (test code = Glucose Lvl) 205 70-99 [place] 662952-06-28 11:17:00 Test Item Value Reference Range Interpretation Comments BUN (test code = BUN) 60 7-22 [place] 662952-06-28 11:17:00 Test Item Value Reference Range Interpretation Comments Creatinine Lvl (test code = Creatinine 8.46 0.50-1.40 Lvl) [place] 662952-06-28 11:17:00 Test Item Value Reference Range Interpretation Comments Sodium Lvl (test code = Sodium Lvl) 131 135-145 [place] 662952-06-28 11:17:00 Test Item Value Reference Range Interpretation Comments Potassium Lvl (test code = Potassium 5.2 3.5-5.1 Lvl) [place] 662952-06-28 11:17:00 Test Item Value Reference Range Interpretation Comments Chloride Lvl (test code = Chloride Lvl) 93 95-109 [place] 662952-06-28 11:17:00 Test Item Value Reference Range Interpretation Comments CO2 (test code = CO2) 29 24-32 [place] 662952-06-28 11:17:00 Test Item Value Reference Range Interpretation Comments Calcium Lvl (test code = Calcium Lvl) 8.7 8.5-10.5 [place] 662952-06-28 11:17:00 Test Item Value Reference Range Interpretation Comments Total Protein (test code = Total 6.0 6.4-8.4 Protein) [place] 662952-06-28 11:17:00 Test Item Value Reference Range Interpretation Comments Albumin Lvl (test code = Albumin Lvl) 2.6 3.5-5.0 [place] 662952-06-28 11:17:00 Test Item Value Reference Range Interpretation Comments ALT (test code = ALT) 43 See_Comment [Auto mated message] The system which ge nerated this result transmit swathi reference range : <=65. The reference range was not used to interpr et this result as deny l/abnormal. [place] 662952-06-28 11:17:00 Test Item Value Reference Range Interpretation Comments AST (test code = AST) 35 See_Comment [Auto mated message] The system which ge nerated this result transmit swathi reference range : <=37. The reference range was not used to interpr et this result as deny l/abnormal. [facility]2022-06-28 11:17:00 Test Item Value Reference Range Interpretation Comments Alk Phos (test code = Alk Phos) 385 39-136 [facility]2022-06-28 11:17:00 Test Item Value Reference Range Interpretation Comments Bili Total (test code = Bili Total) 1.2 0.2-1.3 [facility]2022-06-28 11:17:00 Test Item Value Reference Range Interpretation Comments AGAP (test code = AGAP) 14.2 10.0-20.0 [place] 662952-06-28 11:17:00 Test Item Value Reference Range Interpretation Comments B/C Ratio (test code = B/C Ratio) 7 1 6-25 [place] 662952-06-28 11:17:00 Test Item Value Reference Range Interpretation Comments Globulin (test code = Globulin) 3.4 2.7-4.2 [place] 662952-06-28 11:17:00 Test Item Value Reference Range Interpretation Comments A/G Ratio (test code = A/G Ratio) 0.8 1 0.7-1.6 [facility]2022-06-28 11:17:00 Test Item Value Reference Range Interpretation Comments eGFR (test code = eGFR) 6 [facility]2022-06-28 11:17:00 Test Item Value Reference Range Interpretation Comments Magnesium Lvl (test code = Magnesium 1.9 1.8-2.4 Lvl) [facility]2022-06-28 11:17:00 Test Item Value Reference Range Interpretation Comments LDH (test code = LDH) 297 98-192 [facility]2022-06-28 11:17:00 Test Item Value Reference Range Interpretation Comments Procalcitonin Lvl (test 0.63 See_Comment [Au tomated message] code = Procalcitonin Lvl) Th e system which generated this result transmitted ref erence range: <=0.10. The reference range was not used to interpr et this result as normal/abnormal . [facility]RvdvahzYAMZBWENYC0497-83-22 11:17:00 Test Item Value Reference Range Interpretation Comments D-Dimer (test code = D-Dimer) 5.33 [place] 790622-06-28 11:17:00 Test Item Value Reference Range Interpretation Comments Hep Bs Ag (test code Negative *NA*(11/25/21 = Hep Bs Ag) 6:17 AM) [place] 790622-06-28 11:17:00 Test Item Value Reference Range Interpretation Comments C-REACTIVE PROTEIN (test code = 134.0 C-REACTIVE PROTEIN) [facility]cyxszmBFOWOAIPCL6347-73-87 11:17:00 Test Item Value Reference Range Interpretation Comments Interleukin 6 (test code = Interleukin 25.99 6) [facility]2022-06-28 11:17:00 Test Item Value Reference Range Interpretation Comments Vitamin B12 Lvl (test code = Vitamin 1508 B12 Lvl) [facility]2022-06-28 11:17:00 Test Item Value Reference Range Interpretation Comments Folate Lvl (test code = Folate Lvl) 22.3 [facility]2022-06-28 11:17:00 Test Item Value Reference Range Interpretation Comments Ferritin Lvl (test code = Ferritin Lvl) 1423 22-275 [facility]2022-06-28 11:17:00 Test Item Value Reference Range Interpretation Comments Glucose Lvl (test code = Glucose Lvl) 205 70-99 [place] 662952-06-28 11:17:00 Test Item Value Reference Range Interpretation Comments BUN (test code = BUN) 60 7-22 [place] 662952-06-28 11:17:00 Test Item Value Reference Range Interpretation Comments Creatinine Lvl (test code = Creatinine 8.46 0.50-1.40 Lvl) [facility]2022-06-28 11:17:00 Test Item Value Reference Range Interpretation Comments Sodium Lvl (test code = Sodium Lvl) 131 135-145 [facility]2022-06-28 11:17:00 Test Item Value Reference Range Interpretation Comments Potassium Lvl (test code = Potassium 5.2 3.5-5.1 Lvl) [place] 662952-06-28 11:17:00 Test Item Value Reference Range Interpretation Comments Chloride Lvl (test code = Chloride Lvl) 93 95-109 [facility]Software Spectrum CorporationUNC HEALTH [facility] [id number] 11:17:00 Test Item Value Reference Range Interpretation Comments CO2 (test code = CO2) 29 24-32 [place] 662952-06-28 11:17:00 Test Item Value Reference Range Interpretation Comments Calcium Lvl (test code = Calcium Lvl) 8.7 8.5-10.5 [facility] HospitalSoftware Spectrum CorporationKATIE [place] [id number] 11:17:00 Test Item Value Reference Range Interpretation Comments Total Protein (test code = Total 6.0 6.4-8.4 Protein) [facility]2022-06-28 11:17:00 Test Item Value Reference Range Interpretation Comments Albumin Lvl (test code = Albumin Lvl) 2.6 3.5-5.0 [facility] HospitalAvanti Wind Systems [id number] 11:17:00 Test Item Value Reference Range Interpretation Comments ALT (test code = ALT) 43 See_Comment [Auto mated message] The system which ge nerated this result transmit swathi reference range : <=65. The reference range was not used to interpr et this result as deny l/abnormal. [facility] PasoSoloingles.[facility] [id number] 11:17:00 Test Item Value Reference Range Interpretation Comments AST (test code = AST) 35 See_Comment [Auto mated message] The system which ge nerated this result transmit swathi reference range : <=37. The reference range was not used to interpr et this result as deny l/abnormal. [facility] PasoSoloingles.[facility] [employer] [id number] 11:17:00 Test Item Value Reference Range Interpretation Comments Alk Phos (test code = Alk Phos) 385 39-136 [facility] HospitalAvanti Wind Systems [id number] 11:17:00 Test Item Value Reference Range Interpretation Comments Bili Total (test code = Bili Total) 1.2 0.2-1.3 [facility] PasoSoloingles.[facility] [employer] [id number] 11:17:00 Test Item Value Reference Range Interpretation Comments AGAP (test code = AGAP) 14.2 10.0-20.0 [facility] HospitalA[facility] Systems [id number] 11:17:00 Test Item Value Reference Range Interpretation Comments B/C Ratio (test code = B/C Ratio) 7 1 6-25 [facility] HospitalA[facility] [id number] 11:17:00 Test Item Value Reference Range Interpretation Comments Globulin (test code = Globulin) 3.4 2.7-4.2 [facility]2022-06-28 11:17:00 Test Item Value Reference Range Interpretation Comments A/G Ratio (test code = A/G Ratio) 0.8 1 0.7-1.6 [facility]2022-06-28 11:17:00 Test Item Value Reference Range Interpretation Comments eGFR (test code = eGFR) 6 [facility]2022-06-28 11:17:00 Test Item Value Reference Range Interpretation Comments Magnesium Lvl (test code = Magnesium 1.9 1.8-2.4 Lvl) [facility]2022-06-28 11:17:00 Test Item Value Reference Range Interpretation Comments LDH (test code = LDH) 297 98-192 [facility]2022-06-28 11:17:00 Test Item Value Reference Range Interpretation Comments Procalcitonin Lvl (test 0.63 See_Comment [Au tomated message] code = Procalcitonin Lvl) e system which generated this result transmitted ref erence range: <=0.10. The reference range was not used to interpr et this result as normal/abnormal . [facility] BudaAnfdcgzAWLESPPMEM4137-08-09 11:17:00 Test Item Value Reference Range Interpretation Comments D-Dimer (test code = D-Dimer) 5.33 [facility] PasoFhsejsiZTPYCGVQRI8776-35-14 11:17:00 Test Item Value Reference Range Interpretation Comments Hep Bs Ag (test code Negative *NA*(11/25/21 = Hep Bs Ag) 6:17 AM) [facility]PsjyxuzZZKEZFZGFD5890-98-49 11:17:00 Test Item Value Reference Range Interpretation Comments C-REACTIVE PROTEIN (test code = 134.0 C-REACTIVE PROTEIN) [facility]anoPnimgneSVHOHBOREE5534-95-58 11:17:00 Test Item Value Reference Range Interpretation Comments Interleukin 6 (test code = Interleukin 25.99 6) [facility]2022-06-28 11:17:00 Test Item Value Reference Range Interpretation Comments Vitamin B12 Lvl (test code = Vitamin 1508 B12 Lvl) [facility]2022-06-28 11:17:00 Test Item Value Reference Range Interpretation Comments Folate Lvl (test code = Folate Lvl) 22.3 [facility]2022-06-28 11:17:00 Test Item Value Reference Range Interpretation Comments Ferritin Lvl (test code = Ferritin Lvl) 1423 22275 [facility]2022-06-28 11:17:00 Test Item Value Reference Range Interpretation Comments Glucose Lvl (test code = Glucose Lvl) 205 70-99 [place] 662952-06-28 11:17:00 Test Item Value Reference Range Interpretation Comments BUN (test code = BUN) 60 7-22 [place] 662952-06-28 11:17:00 Test Item Value Reference Range Interpretation Comments Creatinine Lvl (test code = Creatinine 8.46 0.50-1.40 Lvl) [facility]2022-06-28 11:17:00 Test Item Value Reference Range Interpretation Comments Sodium Lvl (test code = Sodium Lvl) 131 135-145 [place] 662952-06-28 11:17:00 Test Item Value Reference Range Interpretation Comments Potassium Lvl (test code = Potassium 5.2 3.5-5.1 Lvl) [place] 662952-06-28 11:17:00 Test Item Value Reference Range Interpretation Comments Chloride Lvl (test code = Chloride Lvl) 93 95-109 [facility]2022-06-28 11:17:00 Test Item Value Reference Range Interpretation Comments CO2 (test code = CO2) 29 24-32 [place] 662952-06-28 11:17:00 Test Item Value Reference Range Interpretation Comments Calcium Lvl (test code = Calcium Lvl) 8.7 8.5-10.5 [facility]2022-06-28 11:17:00 Test Item Value Reference Range Interpretation Comments Total Protein (test code = Total 6.0 6.4-8.4 Protein) [place] 662952-06-28 11:17:00 Test Item Value Reference Range Interpretation Comments Albumin Lvl (test code = Albumin Lvl) 2.6 3.5-5.0 [facility]2022-06-28 11:17:00 Test Item Value Reference Range Interpretation Comments ALT (test code = ALT) 43 See_Comment [Auto mated message] The system which ge nerated this result transmit swathi reference range : <=65. The reference range was not used to interpr et this result as deny l/abnormal. [place] 662952-06-28 11:17:00 Test Item Value Reference Range Interpretation Comments AST (test code = AST) 35 See_Comment [Auto mated message] The system which ge nerated this result transmit swathi reference range : <=37. The reference range was not used to interpr et this result as deny l/abnormal. [place] 662952-06-28 11:17:00 Test Item Value Reference Range Interpretation Comments Alk Phos (test code = Alk Phos) 385 39-136 [place] 662952-06-28 11:17:00 Test Item Value Reference Range Interpretation Comments Bili Total (test code = Bili Total) 1.2 0.2-1.3 [place] 662952-06-28 11:17:00 Test Item Value Reference Range Interpretation Comments AGAP (test code = AGAP) 14.2 10.0-20.0 [place] 662952-06-28 11:17:00 Test Item Value Reference Range Interpretation Comments B/C Ratio (test code = B/C Ratio) 7 1 6-25 [place] 662952-06-28 11:17:00 Test Item Value Reference Range Interpretation Comments Globulin (test code = Globulin) 3.4 2.7-4.2 [place] 662952-06-28 11:17:00 Test Item Value Reference Range Interpretation Comments A/G Ratio (test code = A/G Ratio) 0.8 1 0.7-1.6 [place] 662952-06-28 11:17:00 Test Item Value Reference Range Interpretation Comments eGFR (test code = eGFR) 6 [place] 662952-06-28 11:17:00 Test Item Value Reference Range Interpretation Comments Magnesium Lvl (test code = Magnesium 1.9 1.8-2.4 Lvl) [place] 662952-06-28 11:17:00 Test Item Value Reference Range Interpretation Comments LDH (test code = LDH) 297 98-192 [place] 662952-06-28 11:17:00 Test Item Value Reference Range Interpretation Comments Procalcitonin Lvl (test 0.63 See_Comment [Au tomated message] code = Procalcitonin Lvl) Th e system which generated this result transmitted ref erence range: <=0.10. The reference range was not used to interpr et this result as normal/abnormal . [facility] [id number] 11:17:00 Test Item Value Reference Range Interpretation Comments D-Dimer (test code = D-Dimer) 5.33 [facility] PasoPngstztXALXXEFMRF0744-87-43 11:17:00 Test Item Value Reference Range Interpretation Comments Hep Bs Ag (test code Negative *NA*(11/25/21 = Hep Bs Ag) 6:17 AM) [facility]anoGamvimaGKRIPDKPLV2429-53-24 11:17:00 Test Item Value Reference Range Interpretation Comments C-REACTIVE PROTEIN (test code = 134.0 C-REACTIVE PROTEIN) [facility]anoXoirolxJXWBWLHBMK4326-75-16 11:17:00 Test Item Value Reference Range Interpretation Comments Interleukin 6 (test code = Interleukin 25.99 6) [facility]2022-06-28 11:17:00 Test Item Value Reference Range Interpretation Comments Vitamin B12 Lvl (test code = Vitamin 1508 B12 Lvl) [facility]2022-06-28 11:17:00 Test Item Value Reference Range Interpretation Comments Folate Lvl (test code = Folate Lvl) 22.3 [facility]2022-06-28 11:17:00 Test Item Value Reference Range Interpretation Comments Ferritin Lvl (test code = Ferritin Lvl) 1423 22-275 [facility]2022-06-28 11:17:00 Test Item Value Reference Range Interpretation Comments Glucose Lvl (test code = Glucose Lvl) 205 70-99 [facility]2022-06-28 11:17:00 Test Item Value Reference Range Interpretation Comments BUN (test code = BUN) 60 7-22 [facility]2022-06-28 11:17:00 Test Item Value Reference Range Interpretation Comments Creatinine Lvl (test code = Creatinine 8.46 0.50-1.40 Lvl) [facility]2022-06-28 11:17:00 Test Item Value Reference Range Interpretation Comments Sodium Lvl (test code = Sodium Lvl) 131 135-145 [facility]2022-06-28 11:17:00 Test Item Value Reference Range Interpretation Comments Potassium Lvl (test code = Potassium 5.2 3.5-5.1 Lvl) [place] 662952-06-28 11:17:00 Test Item Value Reference Range Interpretation Comments Chloride Lvl (test code = Chloride Lvl) 93 95-109 [place] 662952-06-28 11:17:00 Test Item Value Reference Range Interpretation Comments CO2 (test code = CO2) 29 24-32 [place] 662952-06-28 11:17:00 Test Item Value Reference Range Interpretation Comments Calcium Lvl (test code = Calcium Lvl) 8.7 8.5-10.5 [place] 662952-06-28 11:17:00 Test Item Value Reference Range Interpretation Comments Total Protein (test code = Total 6.0 6.4-8.4 Protein) [facility]2022-06-28 11:17:00 Test Item Value Reference Range Interpretation Comments Albumin Lvl (test code = Albumin Lvl) 2.6 3.5-5.0 [place] 662952-06-28 11:17:00 Test Item Value Reference Range Interpretation Comments ALT (test code = ALT) 43 See_Comment [Auto mated message] The system which ge nerated this result transmit swathi reference range : <=65. The reference range was not used to interpr et this result as deny l/abnormal. [facility]2022-06-28 11:17:00 Test Item Value Reference Range Interpretation Comments AST (test code = AST) 35 See_Comment [Auto mated message] The system which ge nerated this result transmit swathi reference range : <=37. The reference range was not used to interpr et this result as deny l/abnormal. [place] 662952-06-28 11:17:00 Test Item Value Reference Range Interpretation Comments Alk Phos (test code = Alk Phos) 385 39-136 [place] 662952-06-28 11:17:00 Test Item Value Reference Range Interpretation Comments Bili Total (test code = Bili Total) 1.2 0.2-1.3 [place] 662952-06-28 11:17:00 Test Item Value Reference Range Interpretation Comments AGAP (test code = AGAP) 14.2 10.0-20.0 [facility]2022-06-28 11:17:00 Test Item Value Reference Range Interpretation Comments B/C Ratio (test code = B/C Ratio) 7 1 6-25 [facility]2022-06-28 11:17:00 Test Item Value Reference Range Interpretation Comments Globulin (test code = Globulin) 3.4 2.7-4.2 [facility]2022-06-28 11:17:00 Test Item Value Reference Range Interpretation Comments A/G Ratio (test code = A/G Ratio) 0.8 1 0.7-1.6 [facility]2022-06-28 11:17:00 Test Item Value Reference Range Interpretation Comments eGFR (test code = eGFR) 6 [facility]2022-06-28 11:17:00 Test Item Value Reference Range Interpretation Comments Magnesium Lvl (test code = Magnesium 1.9 1.8-2.4 Lvl) [facility]2022-06-28 11:17:00 Test Item Value Reference Range Interpretation Comments LDH (test code = LDH) 297 98-192 [facility]2022-06-28 11:17:00 Test Item Value Reference Range Interpretation Comments Procalcitonin Lvl (test 0.63 See_Comment [Au tomated message] code = Procalcitonin Lvl) Th e system which generated this result transmitted ref erence range: <=0.10. The reference range was not used to interpr et this result as normal/abnormal . [facility] BudaGjogyrmDUBKDNRYUV8536-71-76 11:17:00 Test Item Value Reference Range Interpretation Comments D-Dimer (test code = D-Dimer) 5.33 [facility] PasoKqstevlUCSYWJUYRU3956-83-56 11:17:00 Test Item Value Reference Range Interpretation Comments Hep Bs Ag (test code Negative *NA*(11/25/21 = Hep Bs Ag) 6:17 AM) [facility]anoBavlnosZLOCYDQQZW9760-00-08 11:17:00 Test Item Value Reference Range Interpretation Comments C-REACTIVE PROTEIN (test code = 134.0 C-REACTIVE PROTEIN) [id number] 11:17:00 Test Item Value Reference Range Interpretation Comments Interleukin 6 (test code = Interleukin 25.99 6) [facility]2022-06-28 11:17:00 Test Item Value Reference Range Interpretation Comments Vitamin B12 Lvl (test code = Vitamin 1508 B12 Lvl) [facility]2022-06-28 11:17:00 Test Item Value Reference Range Interpretation Comments Folate Lvl (test code = Folate Lvl) 22.3 [facility]2022-06-28 11:17:00 Test Item Value Reference Range Interpretation Comments Ferritin Lvl (test code = Ferritin Lvl) 1423 22-275 [facility]2022-06-28 11:17:00 Test Item Value Reference Range Interpretation Comments Glucose Lvl (test code = Glucose Lvl) 205 70-99 [facility]2022-06-28 11:17:00 Test Item Value Reference Range Interpretation Comments BUN (test code = BUN) 60 7-22 [facility]2022-06-28 11:17:00 Test Item Value Reference Range Interpretation Comments Creatinine Lvl (test code = Creatinine 8.46 0.50-1.40 Lvl) [facility]2022-06-28 11:17:00 Test Item Value Reference Range Interpretation Comments Sodium Lvl (test code = Sodium Lvl) 131 135-145 [facility]2022-06-28 11:17:00 Test Item Value Reference Range Interpretation Comments Potassium Lvl (test code = Potassium 5.2 3.5-5.1 Lvl) [facility]2022-06-28 11:17:00 Test Item Value Reference Range Interpretation Comments Chloride Lvl (test code = Chloride Lvl) 93 95-109 [facility]2022-06-28 11:17:00 Test Item Value Reference Range Interpretation Comments CO2 (test code = CO2) 29 24-32 [facility]2022-06-28 11:17:00 Test Item Value Reference Range Interpretation Comments Calcium Lvl (test code = Calcium Lvl) 8.7 8.5-10.5 [facility]2022-06-28 11:17:00 Test Item Value Reference Range Interpretation Comments Total Protein (test code = Total 6.0 6.4-8.4 Protein) [facility]2022-06-28 11:17:00 Test Item Value Reference Range Interpretation Comments Albumin Lvl (test code = Albumin Lvl) 2.6 3.5-5.0 [facility] [id number] 11:17:00 Test Item Value Reference Range Interpretation Comments ALT (test code = ALT) 43 See_Comment [Auto mated message] The system which ge nerated this result transmit swathi reference range : <=65. The reference range was not used to interpr et this result as deny l/abnormal. [facility] [employer] [id number] 11:17:00 Test Item Value Reference Range Interpretation Comments AST (test code = AST) 35 See_Comment [Auto mated message] The system which ge nerated this result transmit swathi reference range : <=37. The reference range was not used to interpr et this result as deny l/abnormal. [facility]2022-06-28 11:17:00 Test Item Value Reference Range Interpretation Comments Alk Phos (test code = Alk Phos) 385 39-136 [facility] [employer] [id number] 11:17:00 Test Item Value Reference Range Interpretation Comments Bili Total (test code = Bili Total) 1.2 0.2-1.3 [facility] [employer] [id number] 11:17:00 Test Item Value Reference Range Interpretation Comments AGAP (test code = AGAP) 14.2 10.0-20.0 [facility] [employer] [id number] 11:17:00 Test Item Value Reference Range Interpretation Comments B/C Ratio (test code = B/C Ratio) 7 1 6-25 [facility] [employer] [id number] 11:17:00 Test Item Value Reference Range Interpretation Comments Globulin (test code = Globulin) 3.4 2.7-4.2 [facility] [employer] [id number] 11:17:00 Test Item Value Reference Range Interpretation Comments A/G Ratio (test code = A/G Ratio) 0.8 1 0.7-1.6 [facility] [employer] [id number] 11:17:00 Test Item Value Reference Range Interpretation Comments eGFR (test code = eGFR) 6 [facility] [employer] [id number] 11:17:00 Test Item Value Reference Range Interpretation Comments Magnesium Lvl (test code = Magnesium 1.9 1.8-2.4 Lvl) [facility] [employer] [id number] 11:17:00 Test Item Value Reference Range Interpretation Comments LDH (test code = LDH) 297 98-192 [facility]2022-06-28 11:17:00 Test Item Value Reference Range Interpretation Comments Procalcitonin Lvl (test 0.63 See_Comment [Au tomated message] code = Procalcitonin Lvl) e system which generated this result transmitted ref erence range: <=0.10. The reference range was not used to interpr et this result as normal/abnormal . [id number] 11:17:00 Test Item Value Reference Range Interpretation Comments D-Dimer (test code = D-Dimer) 5.33 [facility] [id number] 11:17:00 Test Item Value Reference Range Interpretation Comments Hep Bs Ag (test code Negative *NA*(11/25/21 = Hep Bs Ag) 6:17 AM) [place] 790622-06-28 11:17:00 Test Item Value Reference Range Interpretation Comments C-REACTIVE PROTEIN (test code = 134.0 C-REACTIVE PROTEIN) [id number] 11:17:00 Test Item Value Reference Range Interpretation Comments Interleukin 6 (test code = Interleukin 25.99 6) [facility]2022-06-28 11:17:00 Test Item Value Reference Range Interpretation Comments Vitamin B12 Lvl (test code = Vitamin 1508 B12 Lvl) [facility]2022-06-28 11:17:00 Test Item Value Reference Range Interpretation Comments Folate Lvl (test code = Folate Lvl) 22.3 [facility]2022-06-28 11:17:00 Test Item Value Reference Range Interpretation Comments Ferritin Lvl (test code = Ferritin Lvl) 1423 22275 [facility]2022-06-28 11:17:00 Test Item Value Reference Range Interpretation Comments Glucose Lvl (test code = Glucose Lvl) 205 70-99 [facility]2022-06-28 11:17:00 Test Item Value Reference Range Interpretation Comments BUN (test code = BUN) 60 7-22 [facility]2022-06-28 11:17:00 Test Item Value Reference Range Interpretation Comments Creatinine Lvl (test code = Creatinine 8.46 0.50-1.40 Lvl) [place] 662952-06-28 11:17:00 Test Item Value Reference Range Interpretation Comments Sodium Lvl (test code = Sodium Lvl) 131 135-145 [place] 662952-06-28 11:17:00 Test Item Value Reference Range Interpretation Comments Potassium Lvl (test code = Potassium 5.2 3.5-5.1 Lvl) [place] 662952-06-28 11:17:00 Test Item Value Reference Range Interpretation Comments Chloride Lvl (test code = Chloride Lvl) 93 95-109 [place] 662952-06-28 11:17:00 Test Item Value Reference Range Interpretation Comments CO2 (test code = CO2) 29 24-32 [place] 662952-06-28 11:17:00 Test Item Value Reference Range Interpretation Comments Calcium Lvl (test code = Calcium Lvl) 8.7 8.5-10.5 [place] 662952-06-28 11:17:00 Test Item Value Reference Range Interpretation Comments Total Protein (test code = Total 6.0 6.4-8.4 Protein) [place] 662952-06-28 11:17:00 Test Item Value Reference Range Interpretation Comments Albumin Lvl (test code = Albumin Lvl) 2.6 3.5-5.0 [place] 662952-06-28 11:17:00 Test Item Value Reference Range Interpretation Comments ALT (test code = ALT) 43 See_Comment [Auto mated message] The system which ge nerated this result transmit swathi reference range : <=65. The reference range was not used to interpr et this result as deny l/abnormal. [place] 662952-06-28 11:17:00 Test Item Value Reference Range Interpretation Comments AST (test code = AST) 35 See_Comment [Auto mated message] The system which ge nerated this result transmit swathi reference range : <=37. The reference range was not used to interpr et this result as deny l/abnormal. [place] 662952-06-28 11:17:00 Test Item Value Reference Range Interpretation Comments Alk Phos (test code = Alk Phos) 385 39-136 [place] 662952-06-28 11:17:00 Test Item Value Reference Range Interpretation Comments Bili Total (test code = Bili Total) 1.2 0.2-1.3 [facility]2022-06-28 11:17:00 Test Item Value Reference Range Interpretation Comments AGAP (test code = AGAP) 14.2 10.0-20.0 [facility]2022-06-28 11:17:00 Test Item Value Reference Range Interpretation Comments B/C Ratio (test code = B/C Ratio) 7 1 6-25 [place] 662952-06-28 11:17:00 Test Item Value Reference Range Interpretation Comments Globulin (test code = Globulin) 3.4 2.7-4.2 [facility]2022-06-28 11:17:00 Test Item Value Reference Range Interpretation Comments A/G Ratio (test code = A/G Ratio) 0.8 1 0.7-1.6 [place] 662952-06-28 11:17:00 Test Item Value Reference Range Interpretation Comments eGFR (test code = eGFR) 6 [facility]2022-06-28 11:17:00 Test Item Value Reference Range Interpretation Comments Magnesium Lvl (test code = Magnesium 1.9 1.8-2.4 Lvl) [facility]2022-06-28 11:17:00 Test Item Value Reference Range Interpretation Comments LDH (test code = LDH) 297 98-192 [facility]2022-06-28 11:17:00 Test Item Value Reference Range Interpretation Comments Procalcitonin Lvl (test 0.63 See_Comment [Au tomated message] code = Procalcitonin Lvl) e system which generated this result transmitted ref erence range: <=0.10. The reference range was not used to interpr et this result as normal/abnormal . [facility] [id number] 11:17:00 Test Item Value Reference Range Interpretation Comments D-Dimer (test code = D-Dimer) 5.33 [facility] [id number] 11:17:00 Test Item Value Reference Range Interpretation Comments Hep Bs Ag (test code Negative *NA*(11/25/21 = Hep Bs Ag) 6:17 AM) [facility] [id number] 11:17:00 Test Item Value Reference Range Interpretation Comments C-REACTIVE PROTEIN (test code = 134.0 C-REACTIVE PROTEIN) [facility] [id number] 11:17:00 Test Item Value Reference Range Interpretation Comments Interleukin 6 (test code = Interleukin 25.99 6) [facility]2022-06-28 11:17:00 Test Item Value Reference Range Interpretation Comments Vitamin B12 Lvl (test code = Vitamin 1508 B12 Lvl) [facility]2022-06-28 11:17:00 Test Item Value Reference Range Interpretation Comments Folate Lvl (test code = Folate Lvl) 22.3 [facility]2022-06-28 11:17:00 Test Item Value Reference Range Interpretation Comments Ferritin Lvl (test code = Ferritin Lvl) 1423 22-275 [facility]2022-06-28 11:17:00 Test Item Value Reference Range Interpretation Comments Glucose Lvl (test code = Glucose Lvl) 205 70-99 [facility]2022-06-28 11:17:00 Test Item Value Reference Range Interpretation Comments BUN (test code = BUN) 60 7-22 [facility]2022-06-28 11:17:00 Test Item Value Reference Range Interpretation Comments Creatinine Lvl (test code = Creatinine 8.46 0.50-1.40 Lvl) [facility]2022-06-28 11:17:00 Test Item Value Reference Range Interpretation Comments Sodium Lvl (test code = Sodium Lvl) 131 135-145 [facility]2022-06-28 11:17:00 Test Item Value Reference Range Interpretation Comments Potassium Lvl (test code = Potassium 5.2 3.5-5.1 Lvl) [facility]2022-06-28 11:17:00 Test Item Value Reference Range Interpretation Comments Chloride Lvl (test code = Chloride Lvl) 93 95-109 [place] 662952-06-28 11:17:00 Test Item Value Reference Range Interpretation Comments CO2 (test code = CO2) 29 24-32 [facility]2022-06-28 11:17:00 Test Item Value Reference Range Interpretation Comments Calcium Lvl (test code = Calcium Lvl) 8.7 8.5-10.5 [place] 662952-06-28 11:17:00 Test Item Value Reference Range Interpretation Comments Total Protein (test code = Total 6.0 6.4-8.4 Protein) [place] 662952-06-28 11:17:00 Test Item Value Reference Range Interpretation Comments Albumin Lvl (test code = Albumin Lvl) 2.6 3.5-5.0 [facility]2022-06-28 11:17:00 Test Item Value Reference Range Interpretation Comments ALT (test code = ALT) 43 See_Comment [Auto mated message] The system which ge nerated this result transmit swathi reference range : <=65. The reference range was not used to interpr et this result as deny l/abnormal. [place] 662952-06-28 11:17:00 Test Item Value Reference Range Interpretation Comments AST (test code = AST) 35 See_Comment [Auto mated message] The system which ge nerated this result transmit swathi reference range : <=37. The reference range was not used to interpr et this result as deny l/abnormal. [place] 662952-06-28 11:17:00 Test Item Value Reference Range Interpretation Comments Alk Phos (test code = Alk Phos) 385 39-136 [place] 662952-06-28 11:17:00 Test Item Value Reference Range Interpretation Comments Bili Total (test code = Bili Total) 1.2 0.2-1.3 [place] 662952-06-28 11:17:00 Test Item Value Reference Range Interpretation Comments AGAP (test code = AGAP) 14.2 10.0-20.0 [place] 662952-06-28 11:17:00 Test Item Value Reference Range Interpretation Comments B/C Ratio (test code = B/C Ratio) 7 1 6-25 [place] 662952-06-28 11:17:00 Test Item Value Reference Range Interpretation Comments Globulin (test code = Globulin) 3.4 2.7-4.2 [place] 662952-06-28 11:17:00 Test Item Value Reference Range Interpretation Comments A/G Ratio (test code = A/G Ratio) 0.8 1 0.7-1.6 [place] 662952-06-28 11:17:00 Test Item Value Reference Range Interpretation Comments eGFR (test code = eGFR) 6 [place] 662952-06-28 11:17:00 Test Item Value Reference Range Interpretation Comments Magnesium Lvl (test code = Magnesium 1.9 1.8-2.4 Lvl) [facility]2022-06-28 11:17:00 Test Item Value Reference Range Interpretation Comments LDH (test code = LDH) 297 98-192 [facility]2022-06-28 11:17:00 Test Item Value Reference Range Interpretation Comments Procalcitonin Lvl (test 0.63 See_Comment [Au tomated message] code = Procalcitonin Lvl) e system which generated this result transmitted ref erence range: <=0.10. The reference range was not used to interpr et this result as normal/abnormal . [facility] [id number] 11:17:00 Test Item Value Reference Range Interpretation Comments D-Dimer (test code = D-Dimer) 5.33 [place] 790622-06-28 11:17:00 Test Item Value Reference Range Interpretation Comments Hep Bs Ag (test code Negative *NA*(11/25/21 = Hep Bs Ag) 6:17 AM) [facility]afzkxmBUUKYGFJNL8817-79-12 11:17:00 Test Item Value Reference Range Interpretation Comments C-REACTIVE PROTEIN (test code = 134.0 C-REACTIVE PROTEIN) [facility]EclcksmPWGKMCUCPV0042-91-78 11:17:00 Test Item Value Reference Range Interpretation Comments Interleukin 6 (test code = Interleukin 25.99 6) [facility]2022-06-28 11:17:00 Test Item Value Reference Range Interpretation Comments Vitamin B12 Lvl (test code = Vitamin 1508 B12 Lvl) [facility]2022-06-28 11:17:00 Test Item Value Reference Range Interpretation Comments Folate Lvl (test code = Folate Lvl) 22.3 [facility]2022-06-28 11:17:00 Test Item Value Reference Range Interpretation Comments Ferritin Lvl (test code = Ferritin Lvl) 1428 19-945 [facility]2022-06-28 11:17:00 Test Item Value Reference Range Interpretation Comments Glucose Lvl (test code = Glucose Lvl) 205 70-99 [facility]2022-06-28 11:17:00 Test Item Value Reference Range Interpretation Comments BUN (test code = BUN) 60 7-22 [place] 662952-06-28 11:17:00 Test Item Value Reference Range Interpretation Comments Creatinine Lvl (test code = Creatinine 8.46 0.50-1.40 Lvl) [place] 662952-06-28 11:17:00 Test Item Value Reference Range Interpretation Comments Sodium Lvl (test code = Sodium Lvl) 131 135-145 [place] 662952-06-28 11:17:00 Test Item Value Reference Range Interpretation Comments Potassium Lvl (test code = Potassium 5.2 3.5-5.1 Lvl) [place] 662952-06-28 11:17:00 Test Item Value Reference Range Interpretation Comments Chloride Lvl (test code = Chloride Lvl) 93 95-109 [place] 662952-06-28 11:17:00 Test Item Value Reference Range Interpretation Comments CO2 (test code = CO2) 29 24-32 [place] 662952-06-28 11:17:00 Test Item Value Reference Range Interpretation Comments Calcium Lvl (test code = Calcium Lvl) 8.7 8.5-10.5 [place] 662952-06-28 11:17:00 Test Item Value Reference Range Interpretation Comments Total Protein (test code = Total 6.0 6.4-8.4 Protein) [place] 662952-06-28 11:17:00 Test Item Value Reference Range Interpretation Comments Albumin Lvl (test code = Albumin Lvl) 2.6 3.5-5.0 [place] 662952-06-28 11:17:00 Test Item Value Reference Range Interpretation Comments ALT (test code = ALT) 43 See_Comment [Auto mated message] The system which ge nerated this result transmit swathi reference range : <=65. The reference range was not used to interpr et this result as deny l/abnormal. [place] 662952-06-28 11:17:00 Test Item Value Reference Range Interpretation Comments AST (test code = AST) 35 See_Comment [Auto mated message] The system which ge nerated this result transmit wsathi reference range : <=37. The reference range was not used to interpr et this result as deny l/abnormal. [place] 662952-06-28 11:17:00 Test Item Value Reference Range Interpretation Comments Alk Phos (test code = Alk Phos) 385 39-136 [facility]2022-06-28 11:17:00 Test Item Value Reference Range Interpretation Comments Bili Total (test code = Bili Total) 1.2 0.2-1.3 [facility]2022-06-28 11:17:00 Test Item Value Reference Range Interpretation Comments AGAP (test code = AGAP) 14.2 10.0-20.0 [facility]2022-06-28 11:17:00 Test Item Value Reference Range Interpretation Comments B/C Ratio (test code = B/C Ratio) 7 1 6-25 [facility]2022-06-28 11:17:00 Test Item Value Reference Range Interpretation Comments Globulin (test code = Globulin) 3.4 2.7-4.2 [facility]2022-06-28 11:17:00 Test Item Value Reference Range Interpretation Comments A/G Ratio (test code = A/G Ratio) 0.8 1 0.7-1.6 [facility]2022-06-28 11:17:00 Test Item Value Reference Range Interpretation Comments eGFR (test code = eGFR) 6 [facility]2022-06-28 11:17:00 Test Item Value Reference Range Interpretation Comments Magnesium Lvl (test code = Magnesium 1.9 1.8-2.4 Lvl) [facility]2022-06-28 11:17:00 Test Item Value Reference Range Interpretation Comments LDH (test code = LDH) 297 98-192 [facility]2022-06-28 11:17:00 Test Item Value Reference Range Interpretation Comments Procalcitonin Lvl (test 0.63 See_Comment [Au tomated message] code = Procalcitonin Lvl) Th e system which generated this result transmitted ref erence range: <=0.10. The reference range was not used to interpr et this result as normal/abnormal . [facility]-56 11:17:00 Test Item Value Reference Range Interpretation Comments D-Dimer (test code = D-Dimer) 5.33 [facility] PasoEiuuybyHBYZOTWCIN2774-98-74 11:17:00 Test Item Value Reference Range Interpretation Comments Hep Bs Ag (test code Negative *NA*(6/28/22 = Hep Bs Ag) 6:17 AM) [place] 790622-06-28 11:17:00 Test Item Value Reference Range Interpretation Comments C-REACTIVE PROTEIN (test code = 134.0 C-REACTIVE PROTEIN) [place] 790622-06-28 11:17:00 Test Item Value Reference Range Interpretation Comments Interleukin 6 (test code = Interleukin 25.99 6) [facility]2022-06-28 11:17:00 Test Item Value Reference Range Interpretation Comments Vitamin B12 Lvl (test code = Vitamin 1508 B12 Lvl) [place] 285752-06-28 11:17:00 Test Item Value Reference Range Interpretation Comments Folate Lvl (test code = Folate Lvl) 22.3 [facility]2022-06-28 11:17:00 Test Item Value Reference Range Interpretation Comments Ferritin Lvl (test code = Ferritin Lvl) 1423 22275 [place] 662952-06-28 11:17:00 Test Item Value Reference Range Interpretation Comments Glucose Lvl (test code = Glucose Lvl) 205 70-99 [place] 662952-06-28 11:17:00 Test Item Value Reference Range Interpretation Comments BUN (test code = BUN) 60 7-22 [place] 662952-06-28 11:17:00 Test Item Value Reference Range Interpretation Comments Creatinine Lvl (test code = Creatinine 8.46 0.50-1.40 Lvl) [facility]2022-06-28 11:17:00 Test Item Value Reference Range Interpretation Comments Sodium Lvl (test code = Sodium Lvl) 131 135-145 [place] 662952-06-28 11:17:00 Test Item Value Reference Range Interpretation Comments Potassium Lvl (test code = Potassium 5.2 3.5-5.1 Lvl) [place] 662952-06-28 11:17:00 Test Item Value Reference Range Interpretation Comments Chloride Lvl (test code = Chloride Lvl) 93 95-109 [place] 662952-06-28 11:17:00 Test Item Value Reference Range Interpretation Comments CO2 (test code = CO2) 29 24-32 [place] 662952-06-28 11:17:00 Test Item Value Reference Range Interpretation Comments Calcium Lvl (test code = Calcium Lvl) 8.7 8.5-10.5 [place] 662952-06-28 11:17:00 Test Item Value Reference Range Interpretation Comments Total Protein (test code = Total 6.0 6.4-8.4 Protein) [place] 662952-06-28 11:17:00 Test Item Value Reference Range Interpretation Comments Albumin Lvl (test code = Albumin Lvl) 2.6 3.5-5.0 [place] 662952-06-28 11:17:00 Test Item Value Reference Range Interpretation Comments ALT (test code = ALT) 43 See_Comment [Auto mated message] The system which ge nerated this result transmit swathi reference range : <=65. The reference range was not used to interpr et this result as deny l/abnormal. [place] 662952-06-28 11:17:00 Test Item Value Reference Range Interpretation Comments AST (test code = AST) 35 See_Comment [Auto mated message] The system which ge nerated this result transmit swathi reference range : <=37. The reference range was not used to interpr et this result as deny l/abnormal. [facility]2022-06-28 11:17:00 Test Item Value Reference Range Interpretation Comments Alk Phos (test code = Alk Phos) 385 39-136 [facility]2022-06-28 11:17:00 Test Item Value Reference Range Interpretation Comments Bili Total (test code = Bili Total) 1.2 0.2-1.3 [place] 662952-06-28 11:17:00 Test Item Value Reference Range Interpretation Comments AGAP (test code = AGAP) 14.2 10.0-20.0 [place] 662952-06-28 11:17:00 Test Item Value Reference Range Interpretation Comments B/C Ratio (test code = B/C Ratio) 7 1 6-25 [place] 662952-06-28 11:17:00 Test Item Value Reference Range Interpretation Comments Globulin (test code = Globulin) 3.4 2.7-4.2 [place] 662952-06-28 11:17:00 Test Item Value Reference Range Interpretation Comments A/G Ratio (test code = A/G Ratio) 0.8 1 0.7-1.6 [facility]2022-06-28 11:17:00 Test Item Value Reference Range Interpretation Comments eGFR (test code = eGFR) 6 [facility]2022-06-28 11:17:00 Test Item Value Reference Range Interpretation Comments Magnesium Lvl (test code = Magnesium 1.9 1.8-2.4 Lvl) [facility]2022-06-28 11:17:00 Test Item Value Reference Range Interpretation Comments LDH (test code = LDH) 297 98-192 [facility]oSoloingles[employer] [id number] 11:17:00 Test Item Value Reference Range Interpretation Comments Procalcitonin Lvl (test 0.63 See_Comment [Au tomated message] code = Procalcitonin Lvl) Th e system which generated this result transmitted ref erence range: <=0.10. The reference range was not used to interpr et this result as normal/abnormal . [facility]xc[facility]zsHVULOBBEKK0092-13-41 11:17:00 Test Item Value Reference Range Interpretation Comments D-Dimer (test code = D-Dimer) 5.33 [facility] PasoIqkwpamYYAXBJYGGL0410-80-23 11:17:00 Test Item Value Reference Range Interpretation Comments Hep Bs Ag (test code Negative *NA*(11/25/21 = Hep Bs Ag) 6:17 AM) [facility] PasoEdkkqdwXUDAWLVATL1799-81-01 11:17:00 Test Item Value Reference Range Interpretation Comments C-REACTIVE PROTEIN (test code = 134.0 C-REACTIVE PROTEIN) [facility] PasoQmikzsrCOKOHUPOLT1851-29-41 11:17:00 Test Item Value Reference Range Interpretation Comments Interleukin 6 (test code = Interleukin 25.99 6) [facility] [id number] 05:52:00 Test Item Value Reference Range Interpretation Comments RBC product (test code Product available = RBC product) 4(11/25/21 12:52 AM) [facility] [id number] 05:52:00 Test Item Value Reference Range Interpretation Comments RBC product (test code Product available = RBC product) 4(11/25/21 12:52 AM) [facility] [id number] 05:52:00 Test Item Value Reference Range Interpretation Comments RBC product (test code Product available = RBC product) 4(11/25/21 12:52 AM) [facility] [id number] 05:52:00 Test Item Value Reference Range Interpretation Comments RBC product (test code Product available = RBC product) 4(11/25/21 12:52 AM) [facility] [id number] 05:52:00 Test Item Value Reference Range Interpretation Comments RBC product (test code Product available = RBC product) 4(11/25/21 12:52 AM) [facility] [id number] 05:52:00 Test Item Value Reference Range Interpretation Comments RBC product (test code Product available = RBC product) 4(11/25/21 12:52 AM) [facility] [id number] 05:52:00 Test Item Value Reference Range Interpretation Comments RBC product (test code Product available = RBC product) 4(11/25/21 12:52 AM) [facility]2022-06-28 05:52:00 Test Item Value Reference Range Interpretation Comments RBC product (test code Product available = RBC product) 4(11/25/21 12:52 AM) [facility] [id number] 05:52:00 Test Item Value Reference Range Interpretation Comments RBC product (test code Product available = RBC product) 4(11/25/21 12:52 AM) [facility]LpgyktsHFLVIBRAOR2120-43-03 05:43:00 Test Item Value Reference Range Interpretation Comments Coronavirus (COVID-19) Detected MANUEL (test code = 8*ABN*(11/25/21 12:43 Coronavirus (COVID-19) AM) MANUEL) [facility]anoUktxrmiPAAAVFRPTN4419-10-60 05:43:00 Test Item Value Reference Range Interpretation Comments Coronavirus (COVID-19) Detected MANUEL (test code = 8*ABN*(11/25/21 12:43 Coronavirus (COVID-19) AM) MANUEL) [facility]anoWxfniemBFTULSROAB0328-76-13 05:43:00 Test Item Value Reference Range Interpretation Comments Coronavirus (COVID-19) Detected MANUEL (test code = 8*ABN*(11/25/21 12:43 Coronavirus (COVID-19) AM) MANUEL) [facility]anoNpwhdgzJMHSFTHETJ1827-98-93 05:43:00 Test Item Value Reference Range Interpretation Comments Coronavirus (COVID-19) Detected MANUEL (test code = 8*ABN*(11/25/21 12:43 Coronavirus (COVID-19) AM) MANUEL) [facility]anoCfckhzwQSVXYDLTIN9786-22-83 05:43:00 Test Item Value Reference Range Interpretation Comments Coronavirus (COVID-19) Detected MANUEL (test code = 8*ABN*(11/25/21 12:43 Coronavirus (COVID-19) AM) MANUEL) [facility]anoXvrjwwsBDBPGFFPJJ1403-37-44 05:43:00 Test Item Value Reference Range Interpretation Comments Coronavirus (COVID-19) Detected MANUEL (test code = 8*ABN*(11/25/21 12:43 Coronavirus (COVID-19) AM) MANUEL) [facility]anoOqpumaiNAQDWEHENX9857-28-48 05:43:00 Test Item Value Reference Range Interpretation Comments Coronavirus (COVID-19) Detected MANUEL (test code = 8*ABN*(11/25/21 12:43 Coronavirus (COVID-19) AM) MANUEL) [facility]anoJscdfolBOLYUSMMNW9562-95-45 05:43:00 Test Item Value Reference Range Interpretation Comments Coronavirus (COVID-19) Detected MANUEL (test code = 8*ABN*(11/25/21 12:43 Coronavirus (COVID-19) AM) MANUEL) [facility]anoMsqkoevZGZUFRRBII8342-00-90 05:43:00 Test Item Value Reference Range Interpretation Comments Coronavirus (COVID-19) Detected MANUEL (test code = 8*ABN*(11/25/21 12:43 Coronavirus (COVID-19) AM) MANUEL) [facility]2022-06-28 05:23:00 Test Item Value Reference Range Interpretation Comments Occult Bld Stl (test Negative (11/25/21 12:23 code = Occult Bld Stl) AM) [facility]2022-06-28 05:23:00 Test Item Value Reference Range Interpretation Comments Occult Bld Stl (test Negative (11/25/21 12:23 code = Occult Bld Stl) AM) [facility]2022-06-28 05:23:00 Test Item Value Reference Range Interpretation Comments Occult Bld Stl (test Negative (11/25/21 12:23 code = Occult Bld Stl) AM) [facility] [id number] 05:23:00 Test Item Value Reference Range Interpretation Comments Occult Bld Stl (test Negative (11/25/21 12:23 code = Occult Bld Stl) AM) [facility] AND [id number] 05:23:00 Test Item Value Reference Range Interpretation Comments Occult Bld Stl (test Negative (11/25/21 12:23 code = Occult Bld Stl) AM) [facility] AND [id number] 05:23:00 Test Item Value Reference Range Interpretation Comments Occult Bld Stl (test Negative (11/25/21 12:23 code = Occult Bld Stl) AM) [facility] AND [id number] 05:23:00 Test Item Value Reference Range Interpretation Comments Occult Bld Stl (test Negative (11/25/21 12:23 code = Occult Bld Stl) AM) [facility] AND [id number] 05:23:00 Test Item Value Reference Range Interpretation Comments Occult Bld Stl (test Negative (11/25/21 12:23 code = Occult Bld Stl) AM) [facility] AND [id number] 05:23:00 Test Item Value Reference Range Interpretation Comments Occult Bld Stl (test Negative (11/25/21 12:23 code = Occult Bld Stl) AM) [facility] [place] [employer] [id number] 04:12:00 Test Item Value Reference Range Interpretation Comments ABO/Rh (test code = ABO/Rh) AB POS [facility] [place] [employer] [id number] 04:12:00 Test Item Value Reference Range Interpretation Comments Antibody Scrn (test Negative (11/24/21 code = Antibody Scrn) 11:12 PM) [facility] [employer] [id number] 04:12:00 Test Item Value Reference Range Interpretation Comments Total CK (test code = Total CK) 86 12-191 [facility] DYGPHKB2400-55-15 04:12:00 Test Item Value Reference Range Interpretation Comments HS Troponin I (test code = HS Troponin 316 I) [facility] [id number] 04:12:00 Test Item Value Reference Range Interpretation Comments Glucose Lvl (test code = Glucose Lvl) 261 70-99 [place] 662952-06-28 04:12:00 Test Item Value Reference Range Interpretation Comments BUN (test code = BUN) 60 7-22 [place] 662952-06-28 04:12:00 Test Item Value Reference Range Interpretation Comments Creatinine Lvl (test code = Creatinine 8.49 0.50-1.40 Lvl) [place] 662952-06-28 04:12:00 Test Item Value Reference Range Interpretation Comments Sodium Lvl (test code = Sodium Lvl) 133 135-145 [place] 662952-06-28 04:12:00 Test Item Value Reference Range Interpretation Comments Potassium Lvl (test code = Potassium 4.9 3.5-5.1 Lvl) [place] 662952-06-28 04:12:00 Test Item Value Reference Range Interpretation Comments Chloride Lvl (test code = Chloride Lvl) 93 95-109 [place] 662952-06-28 04:12:00 Test Item Value Reference Range Interpretation Comments CO2 (test code = CO2) 31 24-32 [place] 662952-06-28 04:12:00 Test Item Value Reference Range Interpretation Comments Calcium Lvl (test code = Calcium Lvl) 9.1 8.5-10.5 [place] 662952-06-28 04:12:00 Test Item Value Reference Range Interpretation Comments Total Protein (test code = Total 6.8 6.4-8.4 Protein) [place] 662952-06-28 04:12:00 Test Item Value Reference Range Interpretation Comments Albumin Lvl (test code = Albumin Lvl) 2.5 3.5-5.0 [place] 662952-06-28 04:12:00 Test Item Value Reference Range Interpretation Comments ALT (test code = ALT) 51 See_Comment [Auto mated message] The system which ge nerated this result transmit swathi reference range : <=65. The reference range was not used to interpr et this result as deny l/abnormal. [place] 662952-06-28 04:12:00 Test Item Value Reference Range Interpretation Comments AST (test code = AST) 36 See_Comment [Auto mated message] The system which ge nerated this result transmit swathi reference range : <=37. The reference range was not used to interpr et this result as deny l/abnormal. [facility] HospitalAvanti Wind Systems [id number] 04:12:00 Test Item Value Reference Range Interpretation Comments Alk Phos (test code = Alk Phos) 383 39-136 [facility] HospitalSoftware Spectrum CorporationKATIE [place] [address]CYMES1493-03-95 04:12:00 Test Item Value Reference Range Interpretation Comments Bili Total (test code = Bili Total) 1.1 0.2-1.3 [place] 662952-06-28 04:12:00 Test Item Value Reference Range Interpretation Comments AGAP (test code = AGAP) 13.9 10.0-20.0 [facility] HospitalA[facility]i [facility] Systems [id number] 04:12:00 Test Item Value Reference Range Interpretation Comments B/C Ratio (test code = B/C Ratio) 7 1 6-25 [place] 662952-06-28 04:12:00 Test Item Value Reference Range Interpretation Comments Globulin (test code = Globulin) 4.3 2.7-4.2 [facility] HospitalAvanti Wind Systems [id number] 04:12:00 Test Item Value Reference Range Interpretation Comments A/G Ratio (test code = A/G Ratio) 0.6 1 0.7-1.6 [facility] HospitalSoftware Spectrum CorporationKATIE [place]LE [address]KLBNW3599-82-27 04:12:00 Test Item Value Reference Range Interpretation Comments eGFR (test code = eGFR) 5 [place] 662952-06-28 04:12:00 Test Item Value Reference Range Interpretation Comments Procalcitonin Lvl (test 0.69 See_Comment [Au tomated message] code = Procalcitonin Lvl) e system which generated this result transmitted ref erence range: <=0.10. The reference range was not used to interpr et this result as normal/abnormal . [facility] PasoFxuqjwrJKXAEOMYJS4882-45-15 04:12:00 Test Item Value Reference Range Interpretation Comments WBC (test code = WBC) 4.1 3.7-10.4 [place] 475022-06-28 04:12:00 Test Item Value Reference Range Interpretation Comments RBC (test code = RBC) 1.78 4.70-6.10 [place] 475022-06-28 04:12:00 Test Item Value Reference Range Interpretation Comments Hgb (test code = Hgb) 6.5 14.0-18.0 [facility] BudaFibjluoDVFSBSWDIA3089-28-81 04:12:00 Test Item Value Reference Range Interpretation Comments Hct (test code = Hct) 19.5 42.0-54.0 [facility] BudaCtfrhobWZHQFAPBDL4925-32-83 04:12:00 Test Item Value Reference Range Interpretation Comments MCV (test code = MCV) 110.0 80.0-94.0 [facility] BudaBdfwwknLMAGEAHFNF9314-73-59 04:12:00 Test Item Value Reference Range Interpretation Comments MCH (test code = MCH) 36.5 pg 27.0-31.0 [facility] BudaOuitmpkMMITWXFUVG4760-90-31 04:12:00 Test Item Value Reference Range Interpretation Comments MCHC (test code = MCHC) 33.2 32.0-36.0 [facility] BudaLyfkwxjPTHVUAELBN6711-52-59 04:12:00 Test Item Value Reference Range Interpretation Comments RDW (test code = RDW) 19.0 11.5-14.5 [facility] BudaEptatsnAVPDDAYVDC6086-67-93 04:12:00 Test Item Value Reference Range Interpretation Comments Platelet (test code = Platelet) 180 133-450 [facility] BudaZlshtjwTHJMWKGSTL7543-12-45 04:12:00 Test Item Value Reference Range Interpretation Comments MPV (test code = MPV) 8.3 7.4-10.4 [facility] BudaKofrfniAJXUHYHUNU9189-22-29 04:12:00 Test Item Value Reference Range Interpretation Comments PTT (test code = PTT) 45.4 s 22.9-35.8 [facility] BudaXdctoglRPNOPJDWCD2364-45-97 04:12:00 Test Item Value Reference Range Interpretation Comments PT (test code = PT) 19.1 s 12.0-14.7 [facility] BudaFgvlimeMOJMLGWVQJ3435-23-42 04:12:00 Test Item Value Reference Range Interpretation Comments INR (test code = INR) 1.62 1 0.85-1.17 [facility] BudaQwucearGSJGIPOGTY0997-63-24 04:12:00 Test Item Value Reference Range Interpretation Comments RBC Morph (test code = See Note (11/24/21 RBC Morph) 11:12 PM) [facility] BudaAuhamebJNKKFRIGHW6026-39-66 04:12:00 Test Item Value Reference Range Interpretation Comments Plt Morph (test code = Normal (11/24/21 11:12 Plt Morph) PM) [place] 475022-06-28 04:12:00 Test Item Value Reference Range Interpretation Comments Segs (test code = Segs) 72.2 45.0-75.0 [place] 475022-06-28 04:12:00 Test Item Value Reference Range Interpretation Comments Lymphocytes (test code = Lymphocytes) 16.2 20.0-40.0 [place] 475022-06-28 04:12:00 Test Item Value Reference Range Interpretation Comments Monocytes (test code = Monocytes) 8.0 2.0-12.0 [place] 475022-06-28 04:12:00 Test Item Value Reference Range Interpretation Comments Eosinophils (test code = 2.7 See_Comment [A utomated message] The Eosinophils) system which ge nerated this result tra nsmitted reference range : <=4.0. The reference r samantha was not used to int erpret this result as normal/abnormal . [place] [address]-06-28 04:12:00 Test Item Value Reference Range Interpretation Comments Basophils (test code = 0.9 See_Comment [Aut omated message] The Basophils) system which ge nerated this result tra nsmitted reference range : <=1.0. The reference r samantha was not used to int erpret this result as normal/abnormal . [facility] BudaXfeopkiXZVZGBYCMZ4027-44-52 04:12:00 Test Item Value Reference Range Interpretation Comments Neutrophils # (test code = Neutrophils 2.9 1.5-8.1 #) [place] 475022-06-28 04:12:00 Test Item Value Reference Range Interpretation Comments Lymphocytes # (test code = Lymphocytes 0.7 1.0-5.5 #) [place] [address]-06-28 04:12:00 Test Item Value Reference Range Interpretation Comments Monocytes # (test code 0.3 See_Comment [Aut omated message] The = Monocytes #) system which generated this result tra nsmitted reference range : <=0.8. The reference r samantha was not used to int erpret this result as normal/abnormal . [place] 475022-06-28 04:12:00 Test Item Value Reference Range Interpretation Comments Eosinophils # (test code 0.1 See_Comment [A utomated message] The = Eosinophils #) system whic h generated this result tra nsmitted reference range : <=0.5. The reference r samantha was not used to int erpret this result as normal/abnormal . [facility] HospitalJpvazraFUXWZQUWUY3099-42-45 04:12:00 Test Item Value Reference Range Interpretation Comments Anisocyte (test code = 1+ *ABN*(11/24/21 Anisocyte) 11:12 PM) [facility] HospitalWqbyfdxRNNWTYJZHH4638-97-61 04:12:00 Test Item Value Reference Range Interpretation Comments Macrocyte (test code = 1+ *ABN*(11/24/21 Macrocyte) 11:12 PM) [facility] HospitalMdgksrjLBKYDWDKTY6373-71-66 04:12:00 Test Item Value Reference Range Interpretation Comments Microcyte (test code = 1+ *ABN*(11/24/21 Microcyte) 11:12 PM) [facility] [place] [employer] [id number] 04:12:00 Test Item Value Reference Range Interpretation Comments ABO/Rh (test code = ABO/Rh) AB POS [facility] [place] [employer] [id number] 04:12:00 Test Item Value Reference Range Interpretation Comments Antibody Scrn (test Negative (11/24/21 code = Antibody Scrn) 11:12 PM) [facility] [employer] [id number] 04:12:00 Test Item Value Reference Range Interpretation Comments Total CK (test code = Total CK) 86 12-191 [facility] HospitalChina Intelligent [employer] [id number] 04:12:00 Test Item Value Reference Range Interpretation Comments HS Troponin I (test code = HS Troponin 316 I) [facility] [employer]2022-06-28 04:12:00 Test Item Value Reference Range Interpretation Comments Glucose Lvl (test code = Glucose Lvl) 261 70-99 [employer]2022-06-28 04:12:00 Test Item Value Reference Range Interpretation Comments BUN (test code = BUN) 60 7-22 [employer]2022-06-28 04:12:00 Test Item Value Reference Range Interpretation Comments Creatinine Lvl (test code = Creatinine 8.49 0.50-1.40 Lvl) [facility] [employer]2022-06-28 04:12:00 Test Item Value Reference Range Interpretation Comments Sodium Lvl (test code = Sodium Lvl) 133 135-145 [place] 662952-06-28 04:12:00 Test Item Value Reference Range Interpretation Comments Potassium Lvl (test code = Potassium 4.9 3.5-5.1 Lvl) [place] 662952-06-28 04:12:00 Test Item Value Reference Range Interpretation Comments Chloride Lvl (test code = Chloride Lvl) 93 95-109 [place] 662952-06-28 04:12:00 Test Item Value Reference Range Interpretation Comments CO2 (test code = CO2) 31 24-32 [place] 662952-06-28 04:12:00 Test Item Value Reference Range Interpretation Comments Calcium Lvl (test code = Calcium Lvl) 9.1 8.5-10.5 [place] 662952-06-28 04:12:00 Test Item Value Reference Range Interpretation Comments Total Protein (test code = Total 6.8 6.4-8.4 Protein) [place] 662952-06-28 04:12:00 Test Item Value Reference Range Interpretation Comments Albumin Lvl (test code = Albumin Lvl) 2.5 3.5-5.0 [place] 662952-06-28 04:12:00 Test Item Value Reference Range Interpretation Comments ALT (test code = ALT) 51 See_Comment [Auto mated message] The system which ge nerated this result transmit swathi reference range : <=65. The reference range was not used to interpr et this result as deny l/abnormal. [place] 662952-06-28 04:12:00 Test Item Value Reference Range Interpretation Comments AST (test code = AST) 36 See_Comment [Auto mated message] The system which ge nerated this result transmit swathi reference range : <=37. The reference range was not used to interpr et this result as deny l/abnormal. [facility] PasoSoloingles[facility] [id number] 04:12:00 Test Item Value Reference Range Interpretation Comments Alk Phos (test code = Alk Phos) 383 39-136 [place] 662952-06-28 04:12:00 Test Item Value Reference Range Interpretation Comments Bili Total (test code = Bili Total) 1.1 0.2-1.3 [place] 662952-06-28 04:12:00 Test Item Value Reference Range Interpretation Comments AGAP (test code = AGAP) 13.9 10.0-20.0 [place] 662952-06-28 04:12:00 Test Item Value Reference Range Interpretation Comments B/C Ratio (test code = B/C Ratio) 7 1 6-25 [place] 662952-06-28 04:12:00 Test Item Value Reference Range Interpretation Comments Globulin (test code = Globulin) 4.3 2.7-4.2 [place] 662952-06-28 04:12:00 Test Item Value Reference Range Interpretation Comments A/G Ratio (test code = A/G Ratio) 0.6 1 0.7-1.6 [place] 662952-06-28 04:12:00 Test Item Value Reference Range Interpretation Comments eGFR (test code = eGFR) 5 [place] 662952-06-28 04:12:00 Test Item Value Reference Range Interpretation Comments Procalcitonin Lvl (test 0.69 See_Comment [Au tomated message] code = Procalcitonin Lvl) Th e system which generated this result transmitted ref erence range: <=0.10. The reference range was not used to interpr et this result as normal/abnormal . [place] 475022-06-28 04:12:00 Test Item Value Reference Range Interpretation Comments WBC (test code = WBC) 4.1 3.7-10.4 [place] [address]-06-28 04:12:00 Test Item Value Reference Range Interpretation Comments RBC (test code = RBC) 1.78 4.70-6.10 [place] [address]-06-28 04:12:00 Test Item Value Reference Range Interpretation Comments Hgb (test code = Hgb) 6.5 14.0-18.0 [place] [address]-06-28 04:12:00 Test Item Value Reference Range Interpretation Comments Hct (test code = Hct) 19.5 42.0-54.0 [place] [address]-06-28 04:12:00 Test Item Value Reference Range Interpretation Comments MCV (test code = MCV) 110.0 80.0-94.0 [place] [address]-06-28 04:12:00 Test Item Value Reference Range Interpretation Comments MCH (test code = MCH) 36.5 pg 27.0-31.0 [facility] BudaEcgbsfiOTJPPPIBAC6716-12-76 04:12:00 Test Item Value Reference Range Interpretation Comments MCHC (test code = MCHC) 33.2 32.0-36.0 [facility] BudaHevpkjjIAJDIMJSJM9518-29-47 04:12:00 Test Item Value Reference Range Interpretation Comments RDW (test code = RDW) 19.0 11.5-14.5 [facility] BudaCeywtshJDCPDRCJWY3437-19-90 04:12:00 Test Item Value Reference Range Interpretation Comments Platelet (test code = Platelet) 180 133-450 [facility] BudaKdkmalyWOEPGXCFJN5266-03-81 04:12:00 Test Item Value Reference Range Interpretation Comments MPV (test code = MPV) 8.3 7.4-10.4 [facility] BudaLksmkrdOAVHXHUBXF5141-47-63 04:12:00 Test Item Value Reference Range Interpretation Comments PTT (test code = PTT) 45.4 s 22.9-35.8 [facility] BudaSghdmekYKULCPOAZI0496-40-07 04:12:00 Test Item Value Reference Range Interpretation Comments PT (test code = PT) 19.1 s 12.0-14.7 [facility] BudaOmhmadjEEZYSAKVZC3283-44-07 04:12:00 Test Item Value Reference Range Interpretation Comments INR (test code = INR) 1.62 1 0.85-1.17 [facility] BudaZkgnommKOACELAEYC8929-89-63 04:12:00 Test Item Value Reference Range Interpretation Comments RBC Morph (test code = See Note (11/24/21 RBC Morph) 11:12 PM) [facility] BudaZumdvjjVGLDXRDTBU5752-74-45 04:12:00 Test Item Value Reference Range Interpretation Comments Plt Morph (test code = Normal (11/24/21 11:12 Plt Morph) PM) [facility] BudaJmxinmtWGQQRGYBMP8172-25-46 04:12:00 Test Item Value Reference Range Interpretation Comments Segs (test code = Segs) 72.2 45.0-75.0 [facility] BudaIhghasfAIKLVSTIRU5085-76-84 04:12:00 Test Item Value Reference Range Interpretation Comments Lymphocytes (test code = Lymphocytes) 16.2 20.0-40.0 [place] 475022-06-28 04:12:00 Test Item Value Reference Range Interpretation Comments Monocytes (test code = Monocytes) 8.0 2.0-12.0 [facility] BudaLttpoiwESDMWODJID9640-67-86 04:12:00 Test Item Value Reference Range Interpretation Comments Eosinophils (test code = 2.7 See_Comment [A utomated message] The Eosinophils) system which ge nerated this result tra nsmitted reference range : <=4.0. The reference r samantha was not used to int erpret this result as normal/abnormal . [facility] BudaXkmgdtlECEQTTGYOQ0261-27-82 04:12:00 Test Item Value Reference Range Interpretation Comments Basophils (test code = 0.9 See_Comment [Aut omated message] The Basophils) system which ge nerated this result tra nsmitted reference range : <=1.0. The reference r samantha was not used to int erpret this result as normal/abnormal . [facility] BudaEubqtikGAUJXFPKDQ6090-53-62 04:12:00 Test Item Value Reference Range Interpretation Comments Neutrophils # (test code = Neutrophils 2.9 1.5-8.1 #) [facility] BudaUvxafpsJBTISVTZJI7145-06-84 04:12:00 Test Item Value Reference Range Interpretation Comments Lymphocytes # (test code = Lymphocytes 0.7 1.0-5.5 #) [facility] BudaOkxgknkWUMFIFIEGG7454-53-05 04:12:00 Test Item Value Reference Range Interpretation Comments Monocytes # (test code 0.3 See_Comment [Aut omated message] The = Monocytes #) system which generated this result tra nsmitted reference range : <=0.8. The reference r samantha was not used to int erpret this result as normal/abnormal . [facility] BudaHzvzvqeOQWFINZJOO9534-88-30 04:12:00 Test Item Value Reference Range Interpretation Comments Eosinophils # (test code 0.1 See_Comment [A utomated message] The = Eosinophils #) system whic h generated this result tra nsmitted reference range : <=0.5. The reference r samantha was not used to int erpret this result as normal/abnormal . [facility] BudaLhnfmtgACDUIXWWWG8382-55-95 04:12:00 Test Item Value Reference Range Interpretation Comments Anisocyte (test code = 1+ *ABN*(11/24/21 Anisocyte) 11:12 PM) [place] 475022-06-28 04:12:00 Test Item Value Reference Range Interpretation Comments Macrocyte (test code = 1+ *ABN*(11/24/21 Macrocyte) 11:12 PM) [facility]XPGHEBFUO5891-98-79 04:12:00 Test Item Value Reference Range Interpretation Comments Microcyte (test code = 1+ *ABN*(11/24/21 Microcyte) 11:12 PM) [facility] [employer] [id number] 04:12:00 Test Item Value Reference Range Interpretation Comments ABO/Rh (test code = ABO/Rh) AB POS [facility] [employer] [id number] 04:12:00 Test Item Value Reference Range Interpretation Comments Antibody Scrn (test Negative (11/24/21 code = Antibody Scrn) 11:12 PM) [facility] [employer] [id number] 04:12:00 Test Item Value Reference Range Interpretation Comments Total CK (test code = Total CK) 86 12-191 [facility] [id number] 04:12:00 Test Item Value Reference Range Interpretation Comments HS Troponin I (test code = HS Troponin 316 I) [facility] [employer] [id number] 04:12:00 Test Item Value Reference Range Interpretation Comments Glucose Lvl (test code = Glucose Lvl) 261 70-99 [facility] [employer]2022-06-28 04:12:00 Test Item Value Reference Range Interpretation Comments BUN (test code = BUN) 60 7-22 [facility] [employer] [id number] 04:12:00 Test Item Value Reference Range Interpretation Comments Creatinine Lvl (test code = Creatinine 8.49 0.50-1.40 Lvl) [facility] [employer] [id number] 04:12:00 Test Item Value Reference Range Interpretation Comments Sodium Lvl (test code = Sodium Lvl) 133 135-145 [facility] [employer]2022-06-28 04:12:00 Test Item Value Reference Range Interpretation Comments Potassium Lvl (test code = Potassium 4.9 3.5-5.1 Lvl) [facility] [employer] [id number] 04:12:00 Test Item Value Reference Range Interpretation Comments Chloride Lvl (test code = Chloride Lvl) 93 95-109 [facility] [employer]2022-06-28 04:12:00 Test Item Value Reference Range Interpretation Comments CO2 (test code = CO2) 31 24-32 [facility] [id number] 04:12:00 Test Item Value Reference Range Interpretation Comments Calcium Lvl (test code = Calcium Lvl) 9.1 8.5-10.5 [facility] [id number] 04:12:00 Test Item Value Reference Range Interpretation Comments Total Protein (test code = Total 6.8 6.4-8.4 Protein) [facility] [id number] 04:12:00 Test Item Value Reference Range Interpretation Comments Albumin Lvl (test code = Albumin Lvl) 2.5 3.5-5.0 [facility] [id number] 04:12:00 Test Item Value Reference Range Interpretation Comments ALT (test code = ALT) 51 See_Comment [Auto mated message] The system which ge nerated this result transmit swathi reference range : <=65. The reference range was not used to interpr et this result as deny l/abnormal. [facility] [id number] 04:12:00 Test Item Value Reference Range Interpretation Comments AST (test code = AST) 36 See_Comment [Auto mated message] The system which ge nerated this result transmit swathi reference range : <=37. The reference range was not used to interpr et this result as deny l/abnormal. [facility] [id number] 04:12:00 Test Item Value Reference Range Interpretation Comments Alk Phos (test code = Alk Phos) 383 39-136 [facility] [id number] 04:12:00 Test Item Value Reference Range Interpretation Comments Bili Total (test code = Bili Total) 1.1 0.2-1.3 [facility] [id number] 04:12:00 Test Item Value Reference Range Interpretation Comments AGAP (test code = AGAP) 13.9 10.0-20.0 [facility] [employer] [id number] 04:12:00 Test Item Value Reference Range Interpretation Comments B/C Ratio (test code = B/C Ratio) 7 1 6-25 [facility] [id number] 04:12:00 Test Item Value Reference Range Interpretation Comments Globulin (test code = Globulin) 4.3 2.7-4.2 [facility] [employer] [id number] 04:12:00 Test Item Value Reference Range Interpretation Comments A/G Ratio (test code = A/G Ratio) 0.6 1 0.7-1.6 [facility] [id number] 04:12:00 Test Item Value Reference Range Interpretation Comments eGFR (test code = eGFR) 5 [facility] [id number] 04:12:00 Test Item Value Reference Range Interpretation Comments Procalcitonin Lvl (test 0.69 See_Comment [Au tomated message] code = Procalcitonin Lvl) Th e system which generated this result transmitted ref erence range: <=0.10. The reference range was not used to interpr et this result as normal/abnormal . [facility] [id number] 04:12:00 Test Item Value Reference Range Interpretation Comments WBC (test code = WBC) 4.1 3.7-10.4 [place] 475022-06-28 04:12:00 Test Item Value Reference Range Interpretation Comments RBC (test code = RBC) 1.78 4.70-6.10 [facility] [id number] 04:12:00 Test Item Value Reference Range Interpretation Comments Hgb (test code = Hgb) 6.5 14.0-18.0 [facility] BudaSzotijaHHHFOHBLKX2010-86-09 04:12:00 Test Item Value Reference Range Interpretation Comments Hct (test code = Hct) 19.5 42.0-54.0 [place] 475022-06-28 04:12:00 Test Item Value Reference Range Interpretation Comments MCV (test code = MCV) 110.0 80.0-94.0 [place] 475022-06-28 04:12:00 Test Item Value Reference Range Interpretation Comments MCH (test code = MCH) 36.5 pg 27.0-31.0 [facility] BudaBtsxwgfACTHTQGADA2623-30-53 04:12:00 Test Item Value Reference Range Interpretation Comments MCHC (test code = MCHC) 33.2 32.0-36.0 [place] 475022-06-28 04:12:00 Test Item Value Reference Range Interpretation Comments RDW (test code = RDW) 19.0 11.5-14.5 [place] 475022-06-28 04:12:00 Test Item Value Reference Range Interpretation Comments Platelet (test code = Platelet) 180 133-450 [facility] BudaAvqfkdaFORRFIIVPZ9547-11-05 04:12:00 Test Item Value Reference Range Interpretation Comments MPV (test code = MPV) 8.3 7.4-10.4 [facility] BudaTxuhewxSJMRBHVRYP9176-33-75 04:12:00 Test Item Value Reference Range Interpretation Comments PTT (test code = PTT) 45.4 s 22.9-35.8 [place] 475022-06-28 04:12:00 Test Item Value Reference Range Interpretation Comments PT (test code = PT) 19.1 s 12.0-14.7 [place] [address]-06-28 04:12:00 Test Item Value Reference Range Interpretation Comments INR (test code = INR) 1.62 1 0.85-1.17 [place] 475022-06-28 04:12:00 Test Item Value Reference Range Interpretation Comments RBC Morph (test code = See Note (11/24/21 RBC Morph) 11:12 PM) [place] 475022-06-28 04:12:00 Test Item Value Reference Range Interpretation Comments Plt Morph (test code = Normal (11/24/21 11:12 Plt Morph) PM) [facility] BudaRgpvxxjHVNVNAZKBG7229-87-00 04:12:00 Test Item Value Reference Range Interpretation Comments Segs (test code = Segs) 72.2 45.0-75.0 [place] 475022-06-28 04:12:00 Test Item Value Reference Range Interpretation Comments Lymphocytes (test code = Lymphocytes) 16.2 20.0-40.0 [place] 475022-06-28 04:12:00 Test Item Value Reference Range Interpretation Comments Monocytes (test code = Monocytes) 8.0 2.0-12.0 [place] [address]-06-28 04:12:00 Test Item Value Reference Range Interpretation Comments Eosinophils (test code = 2.7 See_Comment [A utomated message] The Eosinophils) system which ge nerated this result tra nsmitted reference range : <=4.0. The reference r samantha was not used to int erpret this result as normal/abnormal . [facility] BudaXjgclmoYOTZTOTMWJ2224-96-90 04:12:00 Test Item Value Reference Range Interpretation Comments Basophils (test code = 0.9 See_Comment [Aut omated message] The Basophils) system which ge nerated this result tra nsmitted reference range : <=1.0. The reference r samantha was not used to int erpret this result as normal/abnormal . [facility] BudaOvkiijvTTPXBYQAVU6122-01-33 04:12:00 Test Item Value Reference Range Interpretation Comments Neutrophils # (test code = Neutrophils 2.9 1.5-8.1 #) [facility] BudaAiiquznUQOZKSEKSW8455-68-81 04:12:00 Test Item Value Reference Range Interpretation Comments Lymphocytes # (test code = Lymphocytes 0.7 1.0-5.5 #) [facility] BudaMuxtsfkLDUCWQTUFK0297-97-61 04:12:00 Test Item Value Reference Range Interpretation Comments Monocytes # (test code 0.3 See_Comment [Aut omated message] The = Monocytes #) system which generated this result tra nsmitted reference range : <=0.8. The reference r samantha was not used to int erpret this result as normal/abnormal . [facility] BudaBivinhwZUDRFMNGNX8044-07-74 04:12:00 Test Item Value Reference Range Interpretation Comments Eosinophils # (test code 0.1 See_Comment [A utomated message] The = Eosinophils #) system whic h generated this result tra nsmitted reference range : <=0.5. The reference r samantha was not used to int erpret this result as normal/abnormal . [facility] BudaMmulcvfAKSAMLVAXZ8525-27-86 04:12:00 Test Item Value Reference Range Interpretation Comments Anisocyte (test code = 1+ *ABN*(11/24/21 Anisocyte) 11:12 PM) [facility] BudaEmmlnkbNJKDEHTRSE0397-38-13 04:12:00 Test Item Value Reference Range Interpretation Comments Macrocyte (test code = 1+ *ABN*(11/24/21 Macrocyte) 11:12 PM) [facility] BudaQytsykfQVNHUSZTGO8514-86-63 04:12:00 Test Item Value Reference Range Interpretation Comments Microcyte (test code = 1+ *ABN*(11/24/21 Microcyte) 11:12 PM) [facility] [id number] 04:12:00 Test Item Value Reference Range Interpretation Comments ABO/Rh (test code = ABO/Rh) AB POS [facility] [id number] 04:12:00 Test Item Value Reference Range Interpretation Comments Antibody Scrn (test Negative (11/24/21 code = Antibody Scrn) 11:12 PM) [facility] [id number] 04:12:00 Test Item Value Reference Range Interpretation Comments Total CK (test code = Total CK) 86 12-191 [facility] [id number] 04:12:00 Test Item Value Reference Range Interpretation Comments HS Troponin I (test code = HS Troponin 316 I) [facility] [id number] 04:12:00 Test Item Value Reference Range Interpretation Comments Glucose Lvl (test code = Glucose Lvl) 261 70-99 [facility] [id number] 04:12:00 Test Item Value Reference Range Interpretation Comments BUN (test code = BUN) 60 7-22 [facility] PasoSoloingles[facility] [id number] 04:12:00 Test Item Value Reference Range Interpretation Comments Creatinine Lvl (test code = Creatinine 8.49 0.50-1.40 Lvl) [facility] [id number] 04:12:00 Test Item Value Reference Range Interpretation Comments Sodium Lvl (test code = Sodium Lvl) 133 135-145 [facility] [id number] 04:12:00 Test Item Value Reference Range Interpretation Comments Potassium Lvl (test code = Potassium 4.9 3.5-5.1 Lvl) [facility] PasoSoloingles[facility] [id number] 04:12:00 Test Item Value Reference Range Interpretation Comments Chloride Lvl (test code = Chloride Lvl) 93 95-109 [facility] PasoSoloingles[facility] [id number] 04:12:00 Test Item Value Reference Range Interpretation Comments CO2 (test code = CO2) 31 24-32 [facility]oSoloingles[employer] HSHLD1976-07-25 04:12:00 Test Item Value Reference Range Interpretation Comments Calcium Lvl (test code = Calcium Lvl) 9.1 8.5-10.5 [facility] PasoSoloingles[facility] [id number] 04:12:00 Test Item Value Reference Range Interpretation Comments Total Protein (test code = Total 6.8 6.4-8.4 Protein) [facility] PasoSoloingles[facility] [id number] 04:12:00 Test Item Value Reference Range Interpretation Comments Albumin Lvl (test code = Albumin Lvl) 2.5 3.5-5.0 [facility] [employer] [id number] 04:12:00 Test Item Value Reference Range Interpretation Comments ALT (test code = ALT) 51 See_Comment [Auto mated message] The system which ge nerated this result transmit swathi reference range : <=65. The reference range was not used to interpr et this result as deny l/abnormal. [facility] [employer] [id number] 04:12:00 Test Item Value Reference Range Interpretation Comments AST (test code = AST) 36 See_Comment [Auto mated message] The system which ge nerated this result transmit swathi reference range : <=37. The reference range was not used to interpr et this result as deny l/abnormal. [facility] [employer] [id number] 04:12:00 Test Item Value Reference Range Interpretation Comments Alk Phos (test code = Alk Phos) 383 39-136 [facility] [employer] [id number] 04:12:00 Test Item Value Reference Range Interpretation Comments Bili Total (test code = Bili Total) 1.1 0.2-1.3 [facility] [employer] [id number] 04:12:00 Test Item Value Reference Range Interpretation Comments AGAP (test code = AGAP) 13.9 10.0-20.0 [facility] [employer] [id number] 04:12:00 Test Item Value Reference Range Interpretation Comments B/C Ratio (test code = B/C Ratio) 7 1 6-25 [facility] [employer] [id number] 04:12:00 Test Item Value Reference Range Interpretation Comments Globulin (test code = Globulin) 4.3 2.7-4.2 [facility] [employer] [id number] 04:12:00 Test Item Value Reference Range Interpretation Comments A/G Ratio (test code = A/G Ratio) 0.6 1 0.7-1.6 [facility] [employer] [id number] 04:12:00 Test Item Value Reference Range Interpretation Comments eGFR (test code = eGFR) 5 [facility] [employer] [id number] 04:12:00 Test Item Value Reference Range Interpretation Comments Procalcitonin Lvl (test 0.69 See_Comment [Au tomated message] code = Procalcitonin Lvl) Th e system which generated this result transmitted ref erence range: <=0.10. The reference range was not used to interpr et this result as normal/abnormal . [facility] BudaJsmcplmULJUMHDLTS6512-24-30 04:12:00 Test Item Value Reference Range Interpretation Comments WBC (test code = WBC) 4.1 3.7-10.4 [facility] BudaUjglqqmWMTPNBJXPZ1152-05-69 04:12:00 Test Item Value Reference Range Interpretation Comments RBC (test code = RBC) 1.78 4.70-6.10 [facility] BudaAkhzdzcPFHDUQPSLY9689-26-26 04:12:00 Test Item Value Reference Range Interpretation Comments Hgb (test code = Hgb) 6.5 14.0-18.0 [facility] BudaFqltfcvRDYIYXBBUX5095-44-77 04:12:00 Test Item Value Reference Range Interpretation Comments Hct (test code = Hct) 19.5 42.0-54.0 [facility] BudaNzskxmvFCGZWMRSAG4142-26-40 04:12:00 Test Item Value Reference Range Interpretation Comments MCV (test code = MCV) 110.0 80.0-94.0 [facility] BudaZxsabyyBJRIRJOESB1327-67-93 04:12:00 Test Item Value Reference Range Interpretation Comments MCH (test code = MCH) 36.5 pg 27.0-31.0 [facility] BudaGdxptecYFVOEKTPDF1669-47-01 04:12:00 Test Item Value Reference Range Interpretation Comments MCHC (test code = MCHC) 33.2 32.0-36.0 [facility] BudaVbzjeliTSJOLSBQRU1516-31-53 04:12:00 Test Item Value Reference Range Interpretation Comments RDW (test code = RDW) 19.0 11.5-14.5 [place] 475022-06-28 04:12:00 Test Item Value Reference Range Interpretation Comments Platelet (test code = Platelet) 180 133-450 [facility] [id number] 04:12:00 Test Item Value Reference Range Interpretation Comments MPV (test code = MPV) 8.3 7.4-10.4 [facility] BudaPrvqnplNTBFLCSMBN3490-89-52 04:12:00 Test Item Value Reference Range Interpretation Comments PTT (test code = PTT) 45.4 s 22.9-35.8 [facility] BudaWqfntxbRBLRKEMDGI7869-67-84 04:12:00 Test Item Value Reference Range Interpretation Comments PT (test code = PT) 19.1 s 12.0-14.7 [facility] BudaPmqxmffGBZOAAGTPZ4141-10-27 04:12:00 Test Item Value Reference Range Interpretation Comments INR (test code = INR) 1.62 1 0.85-1.17 [facility] BudaVehhvsuVAMALFVAFZ0140-15-53 04:12:00 Test Item Value Reference Range Interpretation Comments RBC Morph (test code = See Note (11/24/21 RBC Morph) 11:12 PM) [facility] BudaWdeyuioACKZRNODTG8893-02-34 04:12:00 Test Item Value Reference Range Interpretation Comments Plt Morph (test code = Normal (11/24/21 11:12 Plt Morph) PM) [facility] BudaNmhjblrRPMNOMFMBJ0135-06-41 04:12:00 Test Item Value Reference Range Interpretation Comments Segs (test code = Segs) 72.2 45.0-75.0 [place] 475022-06-28 04:12:00 Test Item Value Reference Range Interpretation Comments Lymphocytes (test code = Lymphocytes) 16.2 20.0-40.0 [facility] BudaUslgtqgAGDUHCMWDZ1355-86-20 04:12:00 Test Item Value Reference Range Interpretation Comments Monocytes (test code = Monocytes) 8.0 2.0-12.0 [facility] BudaCcjtzjdMGTQFZEQTX2628-89-31 04:12:00 Test Item Value Reference Range Interpretation Comments Eosinophils (test code = 2.7 See_Comment [A utomated message] The Eosinophils) system which ge nerated this result tra nsmitted reference range : <=4.0. The reference r samantha was not used to int erpret this result as normal/abnormal . [facility] BudaBxttseeCXNSYTZJHO8426-90-35 04:12:00 Test Item Value Reference Range Interpretation Comments Basophils (test code = 0.9 See_Comment [Aut omated message] The Basophils) system which ge nerated this result tra nsmitted reference range : <=1.0. The reference r samantha was not used to int erpret this result as normal/abnormal . [facility] BudaMruzeafZNMHQSFRJI2225-95-02 04:12:00 Test Item Value Reference Range Interpretation Comments Neutrophils # (test code = Neutrophils 2.9 1.5-8.1 #) [facility] BudaWpbeelvYUCKVKGIBG4524-95-75 04:12:00 Test Item Value Reference Range Interpretation Comments Lymphocytes # (test code = Lymphocytes 0.7 1.0-5.5 #) [facility] PasoPfgfxbnYPTHJNBPDL5491-95-54 04:12:00 Test Item Value Reference Range Interpretation Comments Monocytes # (test code 0.3 See_Comment [Aut omated message] The = Monocytes #) system which generated this result tra nsmitted reference range : <=0.8. The reference r samantha was not used to int erpret this result as normal/abnormal . [facility] PasoJhtigbfJVEXMNLWYC2271-16-76 04:12:00 Test Item Value Reference Range Interpretation Comments Eosinophils # (test code 0.1 See_Comment [A utomated message] The = Eosinophils #) system whic h generated this result tra nsmitted reference range : <=0.5. The reference r samantha was not used to int erpret this result as normal/abnormal . [facility] PasoRsiflapTKVQMSEEMB0371-25-01 04:12:00 Test Item Value Reference Range Interpretation Comments Anisocyte (test code = 1+ *ABN*(11/24/21 Anisocyte) 11:12 PM) [facility] PasoHofugapMZIZVGMCRD2358-60-88 04:12:00 Test Item Value Reference Range Interpretation Comments Macrocyte (test code = 1+ *ABN*(11/24/21 Macrocyte) 11:12 PM) [facility] HospitalVtxmdmoAOPTVSVJVE4140-09-30 04:12:00 Test Item Value Reference Range Interpretation Comments Microcyte (test code = 1+ *ABN*(11/24/21 Microcyte) 11:12 PM) [facility] HospitalYaphie FVXXFEU3112-78-26 04:12:00 Test Item Value Reference Range Interpretation Comments ABO/Rh (test code = ABO/Rh) AB POS [facility] [employer] [id number] 04:12:00 Test Item Value Reference Range Interpretation Comments Antibody Scrn (test Negative (11/24/21 code = Antibody Scrn) 11:12 PM) [facility]China [facility] [employer] [id number] 04:12:00 Test Item Value Reference Range Interpretation Comments Total CK (test code = Total CK) 86 12-191 [facility] HospitalK[facility] YMQCCSS8710-03-28 04:12:00 Test Item Value Reference Range Interpretation Comments HS Troponin I (test code = HS Troponin 316 I) [facility] HospitalA[facility] [id number] 04:12:00 Test Item Value Reference Range Interpretation Comments Glucose Lvl (test code = Glucose Lvl) 261 70-99 [place] 662952-06-28 04:12:00 Test Item Value Reference Range Interpretation Comments BUN (test code = BUN) 60 7-22 [place] 662952-06-28 04:12:00 Test Item Value Reference Range Interpretation Comments Creatinine Lvl (test code = Creatinine 8.49 0.50-1.40 Lvl) [place] 662952-06-28 04:12:00 Test Item Value Reference Range Interpretation Comments Sodium Lvl (test code = Sodium Lvl) 133 135-145 [place] [address]-06-28 04:12:00 Test Item Value Reference Range Interpretation Comments Potassium Lvl (test code = Potassium 4.9 3.5-5.1 Lvl) [place] 662952-06-28 04:12:00 Test Item Value Reference Range Interpretation Comments Chloride Lvl (test code = Chloride Lvl) 93 95-109 [place] 662952-06-28 04:12:00 Test Item Value Reference Range Interpretation Comments CO2 (test code = CO2) 31 24-32 [place] 662952-06-28 04:12:00 Test Item Value Reference Range Interpretation Comments Calcium Lvl (test code = Calcium Lvl) 9.1 8.5-10.5 [place] 662952-06-28 04:12:00 Test Item Value Reference Range Interpretation Comments Total Protein (test code = Total 6.8 6.4-8.4 Protein) [place] 662952-06-28 04:12:00 Test Item Value Reference Range Interpretation Comments Albumin Lvl (test code = Albumin Lvl) 2.5 3.5-5.0 [place] 662952-06-28 04:12:00 Test Item Value Reference Range Interpretation Comments ALT (test code = ALT) 51 See_Comment [Auto mated message] The system which ge nerated this result transmit swathi reference range : <=65. The reference range was not used to interpr et this result as deny l/abnormal. [place] 662952-06-28 04:12:00 Test Item Value Reference Range Interpretation Comments AST (test code = AST) 36 See_Comment [Auto mated message] The system which ge nerated this result transmit swathi reference range : <=37. The reference range was not used to interpr et this result as deny l/abnormal. [facility] Systems [id number] 04:12:00 Test Item Value Reference Range Interpretation Comments Alk Phos (test code = Alk Phos) 383 39-136 [place] 662952-06-28 04:12:00 Test Item Value Reference Range Interpretation Comments Bili Total (test code = Bili Total) 1.1 0.2-1.3 [facility] HospitalSoftware Spectrum CorporationKATIE V[place]LE [id number] 04:12:00 Test Item Value Reference Range Interpretation Comments AGAP (test code = AGAP) 13.9 10.0-20.0 [facility] HospitalSoftware Spectrum CorporationKATIE [place]LE [id number] 04:12:00 Test Item Value Reference Range Interpretation Comments B/C Ratio (test code = B/C Ratio) 7 1 6-25 [place] [address]-06-28 04:12:00 Test Item Value Reference Range Interpretation Comments Globulin (test code = Globulin) 4.3 2.7-4.2 [facility] HospitalAvanti Wind Systems [id number] 04:12:00 Test Item Value Reference Range Interpretation Comments A/G Ratio (test code = A/G Ratio) 0.6 1 0.7-1.6 [place] 662952-06-28 04:12:00 Test Item Value Reference Range Interpretation Comments eGFR (test code = eGFR) 5 [place] 662952-06-28 04:12:00 Test Item Value Reference Range Interpretation Comments Procalcitonin Lvl (test 0.69 See_Comment [Au tomated message] code = Procalcitonin Lvl) Th e system which generated this result transmitted ref erence range: <=0.10. The reference range was not used to interpr et this result as normal/abnormal . [facility] PasoAerptnvOMDAPMBKUE9468-82-27 04:12:00 Test Item Value Reference Range Interpretation Comments WBC (test code = WBC) 4.1 3.7-10.4 [place] 475022-06-28 04:12:00 Test Item Value Reference Range Interpretation Comments RBC (test code = RBC) 1.78 4.70-6.10 [place] 475022-06-28 04:12:00 Test Item Value Reference Range Interpretation Comments Hgb (test code = Hgb) 6.5 14.0-18.0 [facility] BudaNhgaqdiNFUQCVINNM6902-90-60 04:12:00 Test Item Value Reference Range Interpretation Comments Hct (test code = Hct) 19.5 42.0-54.0 [facility] BudaUnnqgpiOQUAOHQJTU7374-79-35 04:12:00 Test Item Value Reference Range Interpretation Comments MCV (test code = MCV) 110.0 80.0-94.0 [facility] BudaKqqbkfmGYXDWXWHTQ2287-74-70 04:12:00 Test Item Value Reference Range Interpretation Comments MCH (test code = MCH) 36.5 pg 27.0-31.0 [facility] BudaTesiyxyDPZYPFXPLM3980-52-31 04:12:00 Test Item Value Reference Range Interpretation Comments MCHC (test code = MCHC) 33.2 32.0-36.0 [facility] BudaEpzwfmvHMGHAGQGYI2364-99-13 04:12:00 Test Item Value Reference Range Interpretation Comments RDW (test code = RDW) 19.0 11.5-14.5 [facility] BudaOpmnikdVZGFLEOPGU5639-54-36 04:12:00 Test Item Value Reference Range Interpretation Comments Platelet (test code = Platelet) 180 133-450 [facility] BudaIljdgonISHHEWGHZE1571-21-55 04:12:00 Test Item Value Reference Range Interpretation Comments MPV (test code = MPV) 8.3 7.4-10.4 [facility] BudaWfzeolcJSNPBSJKAQ4896-63-58 04:12:00 Test Item Value Reference Range Interpretation Comments PTT (test code = PTT) 45.4 s 22.9-35.8 [facility] BudaWmdvasoKJNHNKPBUN3699-83-18 04:12:00 Test Item Value Reference Range Interpretation Comments PT (test code = PT) 19.1 s 12.0-14.7 [facility] BudaQbkiechIOISIXYUVK7965-40-66 04:12:00 Test Item Value Reference Range Interpretation Comments INR (test code = INR) 1.62 1 0.85-1.17 [facility] BudaYhemdibPNQVKARWTX7945-49-44 04:12:00 Test Item Value Reference Range Interpretation Comments RBC Morph (test code = See Note (11/24/21 RBC Morph) 11:12 PM) [facility] BudaIxhfkujVVBJKFPBPO6491-59-31 04:12:00 Test Item Value Reference Range Interpretation Comments Plt Morph (test code = Normal (11/24/21 11:12 Plt Morph) PM) [place] 475022-06-28 04:12:00 Test Item Value Reference Range Interpretation Comments Segs (test code = Segs) 72.2 45.0-75.0 [place] 475022-06-28 04:12:00 Test Item Value Reference Range Interpretation Comments Lymphocytes (test code = Lymphocytes) 16.2 20.0-40.0 [place] [address]-06-28 04:12:00 Test Item Value Reference Range Interpretation Comments Monocytes (test code = Monocytes) 8.0 2.0-12.0 [place] 475022-06-28 04:12:00 Test Item Value Reference Range Interpretation Comments Eosinophils (test code = 2.7 See_Comment [A utomated message] The Eosinophils) system which ge nerated this result tra nsmitted reference range : <=4.0. The reference r samantha was not used to int erpret this result as normal/abnormal . [facility] BudaUhktbadRCVWMZOALB9101-33-27 04:12:00 Test Item Value Reference Range Interpretation Comments Basophils (test code = 0.9 See_Comment [Aut omated message] The Basophils) system which ge nerated this result tra nsmitted reference range : <=1.0. The reference r samantha was not used to int erpret this result as normal/abnormal . [place] 475022-06-28 04:12:00 Test Item Value Reference Range Interpretation Comments Neutrophils # (test code = Neutrophils 2.9 1.5-8.1 #) [place] 475022-06-28 04:12:00 Test Item Value Reference Range Interpretation Comments Lymphocytes # (test code = Lymphocytes 0.7 1.0-5.5 #) [place] [address]-06-28 04:12:00 Test Item Value Reference Range Interpretation Comments Monocytes # (test code 0.3 See_Comment [Aut omated message] The = Monocytes #) system which generated this result tra nsmitted reference range : <=0.8. The reference r samantha was not used to int erpret this result as normal/abnormal . [place] 475022-06-28 04:12:00 Test Item Value Reference Range Interpretation Comments Eosinophils # (test code 0.1 See_Comment [A utomated message] The = Eosinophils #) system whic h generated this result tra nsmitted reference range : <=0.5. The reference r samantha was not used to int erpret this result as normal/abnormal . [facility] PasoFptwjlvQVSUQDGPIZ9247-32-26 04:12:00 Test Item Value Reference Range Interpretation Comments Anisocyte (test code = 1+ *ABN*(11/24/21 Anisocyte) 11:12 PM) [facility] PasoNpnhxmeBUVBJMTSAY4465-48-81 04:12:00 Test Item Value Reference Range Interpretation Comments Macrocyte (test code = 1+ *ABN*(11/24/21 Macrocyte) 11:12 PM) [facility] HospitalBzdknzjVIXJWIPKGM1700-66-04 04:12:00 Test Item Value Reference Range Interpretation Comments Microcyte (test code = 1+ *ABN*(11/24/21 Microcyte) 11:12 PM) [facility] HospitalYaphie [id number] 04:12:00 Test Item Value Reference Range Interpretation Comments ABO/Rh (test code = ABO/Rh) AB POS [facility] HospitalYaphie [id number] 04:12:00 Test Item Value Reference Range Interpretation Comments Antibody Scrn (test Negative (11/24/21 code = Antibody Scrn) 11:12 PM) [facility] HospitalChina Intelligent Transport System Group [id number] 04:12:00 Test Item Value Reference Range Interpretation Comments Total CK (test code = Total CK) 86 12-191 [facility] HospitalLikeeds2022-06-28 04:12:00 Test Item Value Reference Range Interpretation Comments HS Troponin I (test code = HS Troponin 316 I) [facility] [employer]2022-06-28 04:12:00 Test Item Value Reference Range Interpretation Comments Glucose Lvl (test code = Glucose Lvl) 261 70-99 [facility] [employer]2022-06-28 04:12:00 Test Item Value Reference Range Interpretation Comments BUN (test code = BUN) 60 7-22 [facility] [employer]2022-06-28 04:12:00 Test Item Value Reference Range Interpretation Comments Creatinine Lvl (test code = Creatinine 8.49 0.50-1.40 Lvl) [facility] [employer]2022-06-28 04:12:00 Test Item Value Reference Range Interpretation Comments Sodium Lvl (test code = Sodium Lvl) 133 135-145 [place] 662952-06-28 04:12:00 Test Item Value Reference Range Interpretation Comments Potassium Lvl (test code = Potassium 4.9 3.5-5.1 Lvl) [place] 662952-06-28 04:12:00 Test Item Value Reference Range Interpretation Comments Chloride Lvl (test code = Chloride Lvl) 93 95-109 [place] 662952-06-28 04:12:00 Test Item Value Reference Range Interpretation Comments CO2 (test code = CO2) 31 24-32 [place] 662952-06-28 04:12:00 Test Item Value Reference Range Interpretation Comments Calcium Lvl (test code = Calcium Lvl) 9.1 8.5-10.5 [place] 662952-06-28 04:12:00 Test Item Value Reference Range Interpretation Comments Total Protein (test code = Total 6.8 6.4-8.4 Protein) [place] 662952-06-28 04:12:00 Test Item Value Reference Range Interpretation Comments Albumin Lvl (test code = Albumin Lvl) 2.5 3.5-5.0 [place] 662952-06-28 04:12:00 Test Item Value Reference Range Interpretation Comments ALT (test code = ALT) 51 See_Comment [Auto mated message] The system which ge nerated this result transmit swathi reference range : <=65. The reference range was not used to interpr et this result as deny l/abnormal. [facility] PasoSoloingles.[employer] [id number] 04:12:00 Test Item Value Reference Range Interpretation Comments AST (test code = AST) 36 See_Comment [Auto mated message] The system which ge nerated this result transmit swathi reference range : <=37. The reference range was not used to interpr et this result as deny l/abnormal. [facility] PasoSoloingles.[employer] [id number] 04:12:00 Test Item Value Reference Range Interpretation Comments Alk Phos (test code = Alk Phos) 383 39-136 [place] 662952-06-28 04:12:00 Test Item Value Reference Range Interpretation Comments Bili Total (test code = Bili Total) 1.1 0.2-1.3 [place] 662952-06-28 04:12:00 Test Item Value Reference Range Interpretation Comments AGAP (test code = AGAP) 13.9 10.0-20.0 [place] 662952-06-28 04:12:00 Test Item Value Reference Range Interpretation Comments B/C Ratio (test code = B/C Ratio) 7 1 6-25 [place] [address]-06-28 04:12:00 Test Item Value Reference Range Interpretation Comments Globulin (test code = Globulin) 4.3 2.7-4.2 [place] 662952-06-28 04:12:00 Test Item Value Reference Range Interpretation Comments A/G Ratio (test code = A/G Ratio) 0.6 1 0.7-1.6 [place] [address]-06-28 04:12:00 Test Item Value Reference Range Interpretation Comments eGFR (test code = eGFR) 5 [place] 662952-06-28 04:12:00 Test Item Value Reference Range Interpretation Comments Procalcitonin Lvl (test 0.69 See_Comment [Au tomated message] code = Procalcitonin Lvl) Th e system which generated this result transmitted ref erence range: <=0.10. The reference range was not used to interpr et this result as normal/abnormal . [place] 475022-06-28 04:12:00 Test Item Value Reference Range Interpretation Comments WBC (test code = WBC) 4.1 3.7-10.4 [place] [address]-06-28 04:12:00 Test Item Value Reference Range Interpretation Comments RBC (test code = RBC) 1.78 4.70-6.10 [place] [address]-06-28 04:12:00 Test Item Value Reference Range Interpretation Comments Hgb (test code = Hgb) 6.5 14.0-18.0 [place] [address]-06-28 04:12:00 Test Item Value Reference Range Interpretation Comments Hct (test code = Hct) 19.5 42.0-54.0 [place] [address]-06-28 04:12:00 Test Item Value Reference Range Interpretation Comments MCV (test code = MCV) 110.0 80.0-94.0 [place] 475022-06-28 04:12:00 Test Item Value Reference Range Interpretation Comments MCH (test code = MCH) 36.5 pg 27.0-31.0 [facility] BudaAulcrttEYJKLQIBCO7683-41-17 04:12:00 Test Item Value Reference Range Interpretation Comments MCHC (test code = MCHC) 33.2 32.0-36.0 [facility] BudaNbkqzuwEFCALOXTMO3253-73-83 04:12:00 Test Item Value Reference Range Interpretation Comments RDW (test code = RDW) 19.0 11.5-14.5 [facility] BudaAxpiybcKHMKSJSTNP6152-41-40 04:12:00 Test Item Value Reference Range Interpretation Comments Platelet (test code = Platelet) 180 133-450 [facility] BudaNzsffdkPXLULTZPNV9524-22-29 04:12:00 Test Item Value Reference Range Interpretation Comments MPV (test code = MPV) 8.3 7.4-10.4 [place] 475022-06-28 04:12:00 Test Item Value Reference Range Interpretation Comments PTT (test code = PTT) 45.4 s 22.9-35.8 [facility] BudaWkgykdoPLGBPMXYNE1895-29-03 04:12:00 Test Item Value Reference Range Interpretation Comments PT (test code = PT) 19.1 s 12.0-14.7 [facility] BudaCgxaeimGNXFUVLCJP9346-58-80 04:12:00 Test Item Value Reference Range Interpretation Comments INR (test code = INR) 1.62 1 0.85-1.17 [facility] BudaHejhskcLQQGOFRURM7256-04-59 04:12:00 Test Item Value Reference Range Interpretation Comments RBC Morph (test code = See Note (11/24/21 RBC Morph) 11:12 PM) [facility] BudaCexxbyjAXIJKQBMRD3526-37-35 04:12:00 Test Item Value Reference Range Interpretation Comments Plt Morph (test code = Normal (11/24/21 11:12 Plt Morph) PM) [facility] BudaHifckljVTPJPJPCSN9645-84-59 04:12:00 Test Item Value Reference Range Interpretation Comments Segs (test code = Segs) 72.2 45.0-75.0 [facility] BudaXifoupcHKUZMZOAGR0332-04-91 04:12:00 Test Item Value Reference Range Interpretation Comments Lymphocytes (test code = Lymphocytes) 16.2 20.0-40.0 [facility] BudaTgueyhnCBSLDNBXLF0510-76-49 04:12:00 Test Item Value Reference Range Interpretation Comments Monocytes (test code = Monocytes) 8.0 2.0-12.0 [place] 475022-06-28 04:12:00 Test Item Value Reference Range Interpretation Comments Eosinophils (test code = 2.7 See_Comment [A utomated message] The Eosinophils) system which ge nerated this result tra nsmitted reference range : <=4.0. The reference r samantha was not used to int erpret this result as normal/abnormal . [place] 475022-06-28 04:12:00 Test Item Value Reference Range Interpretation Comments Basophils (test code = 0.9 See_Comment [Aut omated message] The Basophils) system which ge nerated this result tra nsmitted reference range : <=1.0. The reference r samantha was not used to int erpret this result as normal/abnormal . [facility] BudaObxyusaVKAVCYSNVU4827-88-50 04:12:00 Test Item Value Reference Range Interpretation Comments Neutrophils # (test code = Neutrophils 2.9 1.5-8.1 #) [place] 475022-06-28 04:12:00 Test Item Value Reference Range Interpretation Comments Lymphocytes # (test code = Lymphocytes 0.7 1.0-5.5 #) [facility] BudaTrufrjcNEBTWRTJCM2280-29-23 04:12:00 Test Item Value Reference Range Interpretation Comments Monocytes # (test code 0.3 See_Comment [Aut omated message] The = Monocytes #) system which generated this result tra nsmitted reference range : <=0.8. The reference r samantha was not used to int erpret this result as normal/abnormal . [facility] BudaWhwlpjeMJRTPHJMXR5560-43-06 04:12:00 Test Item Value Reference Range Interpretation Comments Eosinophils # (test code 0.1 See_Comment [A utomated message] The = Eosinophils #) system whic h generated this result tra nsmitted reference range : <=0.5. The reference r samantha was not used to int erpret this result as normal/abnormal . [facility] BudaSefwrocTAPFPFVGQW7971-67-84 04:12:00 Test Item Value Reference Range Interpretation Comments Anisocyte (test code = 1+ *ABN*(11/24/21 Anisocyte) 11:12 PM) [place] 475022-06-28 04:12:00 Test Item Value Reference Range Interpretation Comments Macrocyte (test code = 1+ *ABN*(11/24/21 Macrocyte) 11:12 PM) [facility] PasoPplievmRHNUKFKHTM0330-23-16 04:12:00 Test Item Value Reference Range Interpretation Comments Microcyte (test code = 1+ *ABN*(11/24/21 Microcyte) 11:12 PM) [facility] HospitalYaphie [id number] 04:12:00 Test Item Value Reference Range Interpretation Comments ABO/Rh (test code = ABO/Rh) AB POS [facility] HospitalSoftware Spectrum CorporationDigabit [facility] [id number] 04:12:00 Test Item Value Reference Range Interpretation Comments Antibody Scrn (test Negative (11/24/21 code = Antibody Scrn) 11:12 PM) [facility] HospitalKizziangAC [id number] 04:12:00 Test Item Value Reference Range Interpretation Comments Total CK (test code = Total CK) 86 12-191 [facility] PasoD.light Design SJGSLMZ1415-53-08 04:12:00 Test Item Value Reference Range Interpretation Comments HS Troponin I (test code = HS Troponin 316 I) [facility] [employer] [id number] 04:12:00 Test Item Value Reference Range Interpretation Comments Glucose Lvl (test code = Glucose Lvl) 261 70-99 [facility] [employer] [id number] 04:12:00 Test Item Value Reference Range Interpretation Comments BUN (test code = BUN) 60 7-22 [facility] HospitalAvanti Wind Systems [id number] 04:12:00 Test Item Value Reference Range Interpretation Comments Creatinine Lvl (test code = Creatinine 8.49 0.50-1.40 Lvl) [facility] [employer] [id number] 04:12:00 Test Item Value Reference Range Interpretation Comments Sodium Lvl (test code = Sodium Lvl) 133 135-145 [facility] HospitalAvanti Wind Systems [id number] 04:12:00 Test Item Value Reference Range Interpretation Comments Potassium Lvl (test code = Potassium 4.9 3.5-5.1 Lvl) [facility] HospitalAvanti Wind Systems [id number] 04:12:00 Test Item Value Reference Range Interpretation Comments Chloride Lvl (test code = Chloride Lvl) 93 95-109 [facility] HospitalA[facility] [id number] 04:12:00 Test Item Value Reference Range Interpretation Comments CO2 (test code = CO2) 31 24-32 [facility] HospitalSoftware Spectrum CorporationKAT[place] [id number] 04:12:00 Test Item Value Reference Range Interpretation Comments Calcium Lvl (test code = Calcium Lvl) 9.1 8.5-10.5 [facility] HospitalSoftware Spectrum CorporationKAT[place] [id number] 04:12:00 Test Item Value Reference Range Interpretation Comments Total Protein (test code = Total 6.8 6.4-8.4 Protein) [place] 662952-06-28 04:12:00 Test Item Value Reference Range Interpretation Comments Albumin Lvl (test code = Albumin Lvl) 2.5 3.5-5.0 [facility] HospitalAvanti [facility] Systems [id number] 04:12:00 Test Item Value Reference Range Interpretation Comments ALT (test code = ALT) 51 See_Comment [Auto mated message] The system which ge nerated this result transmit swathi reference range : <=65. The reference range was not used to interpr et this result as deny l/abnormal. [facility] HospitalAvanti Wind Systems [id number] 04:12:00 Test Item Value Reference Range Interpretation Comments AST (test code = AST) 36 See_Comment [Auto mated message] The system which ge nerated this result transmit swathi reference range : <=37. The reference range was not used to interpr et this result as deny l/abnormal. [facility] HospitalA[facility]i [facility] Systems [id number] 04:12:00 Test Item Value Reference Range Interpretation Comments Alk Phos (test code = Alk Phos) 383 39-136 [facility] HospitalA[facility]i [facility] Systems [id number] 04:12:00 Test Item Value Reference Range Interpretation Comments Bili Total (test code = Bili Total) 1.1 0.2-1.3 [facility] HospitalA[facility] Systems [id number] 04:12:00 Test Item Value Reference Range Interpretation Comments AGAP (test code = AGAP) 13.9 10.0-20.0 [facility] HospitalA[facility] Systems [id number] 04:12:00 Test Item Value Reference Range Interpretation Comments B/C Ratio (test code = B/C Ratio) 7 1 6-25 [facility] HospitalA[facility] [id number] 04:12:00 Test Item Value Reference Range Interpretation Comments Globulin (test code = Globulin) 4.3 2.7-4.2 [facility] HospitalA[facility]i [facility] Systems [id number] 04:12:00 Test Item Value Reference Range Interpretation Comments A/G Ratio (test code = A/G Ratio) 0.6 1 0.7-1.6 [facility]2022-06-28 04:12:00 Test Item Value Reference Range Interpretation Comments eGFR (test code = eGFR) 5 [facility]2022-06-28 04:12:00 Test Item Value Reference Range Interpretation Comments Procalcitonin Lvl (test 0.69 See_Comment [Au tomated message] code = Procalcitonin Lvl) Th e system which generated this result transmitted ref erence range: <=0.10. The reference range was not used to interpr et this result as normal/abnormal . [facility] BudaZnjsyzlYZRMVEWSPQ6685-09-66 04:12:00 Test Item Value Reference Range Interpretation Comments WBC (test code = WBC) 4.1 3.7-10.4 [facility] BudaEmdveovINWJQYKTWO7858-32-65 04:12:00 Test Item Value Reference Range Interpretation Comments RBC (test code = RBC) 1.78 4.70-6.10 [facility] [id number] 04:12:00 Test Item Value Reference Range Interpretation Comments Hgb (test code = Hgb) 6.5 14.0-18.0 [facility] BudaXkyweedFQGCMYIMOU9762-46-87 04:12:00 Test Item Value Reference Range Interpretation Comments Hct (test code = Hct) 19.5 42.0-54.0 [facility] BudaTaiozadPPZVEGNLBT2944-22-30 04:12:00 Test Item Value Reference Range Interpretation Comments MCV (test code = MCV) 110.0 80.0-94.0 [facility] BudaSeowvdcLVWTAEWOXK5789-58-56 04:12:00 Test Item Value Reference Range Interpretation Comments MCH (test code = MCH) 36.5 pg 27.0-31.0 [facility] BudaNidyrqvMIMTSHGLPI9107-76-02 04:12:00 Test Item Value Reference Range Interpretation Comments MCHC (test code = MCHC) 33.2 32.0-36.0 [place] 475022-06-28 04:12:00 Test Item Value Reference Range Interpretation Comments RDW (test code = RDW) 19.0 11.5-14.5 [place] 475022-06-28 04:12:00 Test Item Value Reference Range Interpretation Comments Platelet (test code = Platelet) 180 133-450 [facility] BudaUjjacibARFOLVCXLW1827-59-41 04:12:00 Test Item Value Reference Range Interpretation Comments MPV (test code = MPV) 8.3 7.4-10.4 [place] 475022-06-28 04:12:00 Test Item Value Reference Range Interpretation Comments PTT (test code = PTT) 45.4 s 22.9-35.8 [place] 475022-06-28 04:12:00 Test Item Value Reference Range Interpretation Comments PT (test code = PT) 19.1 s 12.0-14.7 [place] 475022-06-28 04:12:00 Test Item Value Reference Range Interpretation Comments INR (test code = INR) 1.62 1 0.85-1.17 [place] 475022-06-28 04:12:00 Test Item Value Reference Range Interpretation Comments RBC Morph (test code = See Note (11/24/21 RBC Morph) 11:12 PM) [facility] BudaGkhibhnNLOHPYDRXN0661-34-61 04:12:00 Test Item Value Reference Range Interpretation Comments Plt Morph (test code = Normal (11/24/21 11:12 Plt Morph) PM) [facility] BudaXvokzrmOROSEZHDRL9769-86-80 04:12:00 Test Item Value Reference Range Interpretation Comments Segs (test code = Segs) 72.2 45.0-75.0 [facility] BudaGuowampXQDFZJQFPT3059-83-46 04:12:00 Test Item Value Reference Range Interpretation Comments Lymphocytes (test code = Lymphocytes) 16.2 20.0-40.0 [place] 475022-06-28 04:12:00 Test Item Value Reference Range Interpretation Comments Monocytes (test code = Monocytes) 8.0 2.0-12.0 [place] [address]-06-28 04:12:00 Test Item Value Reference Range Interpretation Comments Eosinophils (test code = 2.7 See_Comment [A utomated message] The Eosinophils) system which ge nerated this result tra nsmitted reference range : <=4.0. The reference r samantha was not used to int erpret this result as normal/abnormal . [facility] BudaWanigkdJUWTFITKAM1146-77-01 04:12:00 Test Item Value Reference Range Interpretation Comments Basophils (test code = 0.9 See_Comment [Aut omated message] The Basophils) system which ge nerated this result tra nsmitted reference range : <=1.0. The reference r samantha was not used to int erpret this result as normal/abnormal . [facility] BudaElrjzqiHNANOUFOFW4555-05-82 04:12:00 Test Item Value Reference Range Interpretation Comments Neutrophils # (test code = Neutrophils 2.9 1.5-8.1 #) [facility] BudaWnlbbtrQJZFQSVTVS9408-66-59 04:12:00 Test Item Value Reference Range Interpretation Comments Lymphocytes # (test code = Lymphocytes 0.7 1.0-5.5 #) [facility] BudaAnfjphuHYPHDNVSVW2898-63-31 04:12:00 Test Item Value Reference Range Interpretation Comments Monocytes # (test code 0.3 See_Comment [Aut omated message] The = Monocytes #) system which generated this result tra nsmitted reference range : <=0.8. The reference r samantha was not used to int erpret this result as normal/abnormal . [facility] BudaBrmpuwpECNMCPSKEU2979-87-33 04:12:00 Test Item Value Reference Range Interpretation Comments Eosinophils # (test code 0.1 See_Comment [A utomated message] The = Eosinophils #) system whic h generated this result tra nsmitted reference range : <=0.5. The reference r samantha was not used to int erpret this result as normal/abnormal . [facility] BudaTfpqrirUDGFLBNYUN9389-70-20 04:12:00 Test Item Value Reference Range Interpretation Comments Anisocyte (test code = 1+ *ABN*(11/24/21 Anisocyte) 11:12 PM) [facility] BudaPuwthyuASLJIMOQLJ9930-40-26 04:12:00 Test Item Value Reference Range Interpretation Comments Macrocyte (test code = 1+ *ABN*(11/24/21 Macrocyte) 11:12 PM) [facility] BudaSaasgpdJBVXUHVSVF7424-31-95 04:12:00 Test Item Value Reference Range Interpretation Comments Microcyte (test code = 1+ *ABN*(11/24/21 Microcyte) 11:12 PM) [facility] [id number] 04:12:00 Test Item Value Reference Range Interpretation Comments ABO/Rh (test code = ABO/Rh) AB POS [facility] HospitalSoftware Spectrum [employer]Dig[employer] [facility] [id number] 04:12:00 Test Item Value Reference Range Interpretation Comments Antibody Scrn (test Negative (11/24/21 code = Antibody Scrn) 11:12 PM) [facility] PasoEventapAC [id number] 04:12:00 Test Item Value Reference Range Interpretation Comments Total CK (test code = Total CK) 86 12-191 [facility] [id number] 04:12:00 Test Item Value Reference Range Interpretation Comments HS Troponin I (test code = HS Troponin 316 I) [facility] PasoSoloingles.[facility] Internacional [id number] 04:12:00 Test Item Value Reference Range Interpretation Comments Glucose Lvl (test code = Glucose Lvl) 261 70-99 [facility] PasoSoloingles.[facility] Internacional [id number] 04:12:00 Test Item Value Reference Range Interpretation Comments BUN (test code = BUN) 60 7-22 [facility] [id number] 04:12:00 Test Item Value Reference Range Interpretation Comments Creatinine Lvl (test code = Creatinine 8.49 0.50-1.40 Lvl) [facility] PasoSoloingles.[facility] Internacional [id number] 04:12:00 Test Item Value Reference Range Interpretation Comments Sodium Lvl (test code = Sodium Lvl) 133 135-145 [facility] PasoSoloingles.[facility] Internacional [id number] 04:12:00 Test Item Value Reference Range Interpretation Comments Potassium Lvl (test code = Potassium 4.9 3.5-5.1 Lvl) [facility] PasoSoloingles.[facility] Internacional [id number] 04:12:00 Test Item Value Reference Range Interpretation Comments Chloride Lvl (test code = Chloride Lvl) 93 95-109 [facility] PasoSoloingles.[facility] Internacional [id number] 04:12:00 Test Item Value Reference Range Interpretation Comments CO2 (test code = CO2) 31 24-32 [facility] PasoSoloingles.[facility] Internacional [id number] 04:12:00 Test Item Value Reference Range Interpretation Comments Calcium Lvl (test code = Calcium Lvl) 9.1 8.5-10.5 [facility] PasoSoloingles.[facility] Internacional [id number] 04:12:00 Test Item Value Reference Range Interpretation Comments Total Protein (test code = Total 6.8 6.4-8.4 Protein) [facility]2022-06-28 04:12:00 Test Item Value Reference Range Interpretation Comments Albumin Lvl (test code = Albumin Lvl) 2.5 3.5-5.0 [facility] HospitalAvanti Wind Systems [id number] 04:12:00 Test Item Value Reference Range Interpretation Comments ALT (test code = ALT) 51 See_Comment [Auto mated message] The system which ge nerated this result transmit swathi reference range : <=65. The reference range was not used to interpr et this result as deny l/abnormal. [facility] HospitalAvanti [facility] Systems [id number] 04:12:00 Test Item Value Reference Range Interpretation Comments AST (test code = AST) 36 See_Comment [Auto mated message] The system which ge nerated this result transmit swathi reference range : <=37. The reference range was not used to interpr et this result as deny l/abnormal. [facility] HospitalA[facility]i [facility] Systems [id number] 04:12:00 Test Item Value Reference Range Interpretation Comments Alk Phos (test code = Alk Phos) 383 39-136 [facility] HospitalA[facility] Systems [id number] 04:12:00 Test Item Value Reference Range Interpretation Comments Bili Total (test code = Bili Total) 1.1 0.2-1.3 [facility] HospitalA[facility] [id number] 04:12:00 Test Item Value Reference Range Interpretation Comments AGAP (test code = AGAP) 13.9 10.0-20.0 [facility] HospitalA[facility] [id number] 04:12:00 Test Item Value Reference Range Interpretation Comments B/C Ratio (test code = B/C Ratio) 7 1 6-25 [facility] [id number] 04:12:00 Test Item Value Reference Range Interpretation Comments Globulin (test code = Globulin) 4.3 2.7-4.2 [facility] [id number] 04:12:00 Test Item Value Reference Range Interpretation Comments A/G Ratio (test code = A/G Ratio) 0.6 1 0.7-1.6 [facility] HospitalA[facility] [id number] 04:12:00 Test Item Value Reference Range Interpretation Comments eGFR (test code = eGFR) 5 [facility] HospitalA[facility] [id number] 04:12:00 Test Item Value Reference Range Interpretation Comments Procalcitonin Lvl (test 0.69 See_Comment [Au tomated message] code = Procalcitonin Lvl) Th e system which generated this result transmitted ref erence range: <=0.10. The reference range was not used to interpr et this result as normal/abnormal . [facility] BudaGdytltbHMVPGJYHJC4143-15-24 04:12:00 Test Item Value Reference Range Interpretation Comments WBC (test code = WBC) 4.1 3.7-10.4 [facility] BudaBluuoyuCMRYDCXTDO0627-50-34 04:12:00 Test Item Value Reference Range Interpretation Comments RBC (test code = RBC) 1.78 4.70-6.10 [facility] BudaHhikplnQJIEQZWCBK7666-40-50 04:12:00 Test Item Value Reference Range Interpretation Comments Hgb (test code = Hgb) 6.5 14.0-18.0 [facility] BudaPjmkkkvIYXOLJUSIO1717-60-70 04:12:00 Test Item Value Reference Range Interpretation Comments Hct (test code = Hct) 19.5 42.0-54.0 [facility] BudaRsoclygZCUTDVYVOK9541-27-39 04:12:00 Test Item Value Reference Range Interpretation Comments MCV (test code = MCV) 110.0 80.0-94.0 [facility] BudaFcxezzkFDKXMVSXRB0312-73-98 04:12:00 Test Item Value Reference Range Interpretation Comments MCH (test code = MCH) 36.5 pg 27.0-31.0 [facility] BudaMnqqbqmHUMBGUBVNM7174-47-10 04:12:00 Test Item Value Reference Range Interpretation Comments MCHC (test code = MCHC) 33.2 32.0-36.0 [facility] BudaCyyigdlIAKWTVRBMF7848-82-27 04:12:00 Test Item Value Reference Range Interpretation Comments RDW (test code = RDW) 19.0 11.5-14.5 [facility] BudaLbjpjjhHQLVZLHPUS5094-37-11 04:12:00 Test Item Value Reference Range Interpretation Comments Platelet (test code = Platelet) 180 133-450 [facility] BudaTtighvdTSISJLAHZQ0091-50-06 04:12:00 Test Item Value Reference Range Interpretation Comments MPV (test code = MPV) 8.3 7.4-10.4 [facility] BudaSxakrzaFGXODKRMVH4186-83-32 04:12:00 Test Item Value Reference Range Interpretation Comments PTT (test code = PTT) 45.4 s 22.9-35.8 [facility] BudaMkidfnsXCSRLMUVBV9477-63-26 04:12:00 Test Item Value Reference Range Interpretation Comments PT (test code = PT) 19.1 s 12.0-14.7 [facility] BudaDqucwbbMHPCNHOBSR2276-77-89 04:12:00 Test Item Value Reference Range Interpretation Comments INR (test code = INR) 1.62 1 0.85-1.17 [place] 475022-06-28 04:12:00 Test Item Value Reference Range Interpretation Comments RBC Morph (test code = See Note (11/24/21 RBC Morph) 11:12 PM) [facility] BudaBmlkwxxVSYVSPJXAA7317-37-24 04:12:00 Test Item Value Reference Range Interpretation Comments Plt Morph (test code = Normal (11/24/21 11:12 Plt Morph) PM) [place] 475022-06-28 04:12:00 Test Item Value Reference Range Interpretation Comments Segs (test code = Segs) 72.2 45.0-75.0 [place] 475022-06-28 04:12:00 Test Item Value Reference Range Interpretation Comments Lymphocytes (test code = Lymphocytes) 16.2 20.0-40.0 [place] 475022-06-28 04:12:00 Test Item Value Reference Range Interpretation Comments Monocytes (test code = Monocytes) 8.0 2.0-12.0 [facility] BudaDphdtxeZOPPMDYPHB5631-10-82 04:12:00 Test Item Value Reference Range Interpretation Comments Eosinophils (test code = 2.7 See_Comment [A utomated message] The Eosinophils) system which ge nerated this result tra nsmitted reference range : <=4.0. The reference r samantha was not used to int erpret this result as normal/abnormal . [facility] BudaMrnjjkrDMAVIXXITD5691-64-95 04:12:00 Test Item Value Reference Range Interpretation Comments Basophils (test code = 0.9 See_Comment [Aut omated message] The Basophils) system which ge nerated this result tra nsmitted reference range : <=1.0. The reference r samantha was not used to int erpret this result as normal/abnormal . [facility] BudaMayxdekZOGCLQSHJI0297-28-22 04:12:00 Test Item Value Reference Range Interpretation Comments Neutrophils # (test code = Neutrophils 2.9 1.5-8.1 #) [facility] BudaIwnfczrXCPTSJWEMK4567-07-08 04:12:00 Test Item Value Reference Range Interpretation Comments Lymphocytes # (test code = Lymphocytes 0.7 1.0-5.5 #) [facility] HospitalGnkmmnlOEKEEXLJMP6674-18-74 04:12:00 Test Item Value Reference Range Interpretation Comments Monocytes # (test code 0.3 See_Comment [Aut omated message] The = Monocytes #) system which generated this result tra nsmitted reference range : <=0.8. The reference r samantha was not used to int erpret this result as normal/abnormal . [facility] PasoZzeptxdHJSKNVSKBH9838-01-99 04:12:00 Test Item Value Reference Range Interpretation Comments Eosinophils # (test code 0.1 See_Comment [A utomated message] The = Eosinophils #) system whic h generated this result tra nsmitted reference range : <=0.5. The reference r samantha was not used to int erpret this result as normal/abnormal . [facility] PasoRkefghbPMAPLISAIR8582-98-42 04:12:00 Test Item Value Reference Range Interpretation Comments Anisocyte (test code = 1+ *ABN*(11/24/21 Anisocyte) 11:12 PM) [facility] HospitalYldflmkMFYRMUJTMI9159-13-77 04:12:00 Test Item Value Reference Range Interpretation Comments Macrocyte (test code = 1+ *ABN*(11/24/21 Macrocyte) 11:12 PM) [facility] HospitalFqisdjiDLSMSSUTIM2115-81-88 04:12:00 Test Item Value Reference Range Interpretation Comments Microcyte (test code = 1+ *ABN*(11/24/21 Microcyte) 11:12 PM) [facility] [employer] [id number] 04:12:00 Test Item Value Reference Range Interpretation Comments ABO/Rh (test code = ABO/Rh) AB POS [facility] [employer] [id number] 04:12:00 Test Item Value Reference Range Interpretation Comments Antibody Scrn (test Negative (11/24/21 code = Antibody Scrn) 11:12 PM) [facility] HospitalChina Intelligent [employer] [id number] 04:12:00 Test Item Value Reference Range Interpretation Comments Total CK (test code = Total CK) 86 12-191 [facility] HospitalKizziang [id number] 04:12:00 Test Item Value Reference Range Interpretation Comments HS Troponin I (test code = HS Troponin 316 I) [facility] [employer] [id number] 04:12:00 Test Item Value Reference Range Interpretation Comments Glucose Lvl (test code = Glucose Lvl) 261 70-99 [place] 662952-06-28 04:12:00 Test Item Value Reference Range Interpretation Comments BUN (test code = BUN) 60 7-22 [place] 662952-06-28 04:12:00 Test Item Value Reference Range Interpretation Comments Creatinine Lvl (test code = Creatinine 8.49 0.50-1.40 Lvl) [place] 662952-06-28 04:12:00 Test Item Value Reference Range Interpretation Comments Sodium Lvl (test code = Sodium Lvl) 133 135-145 [place] 662952-06-28 04:12:00 Test Item Value Reference Range Interpretation Comments Potassium Lvl (test code = Potassium 4.9 3.5-5.1 Lvl) [place] 662952-06-28 04:12:00 Test Item Value Reference Range Interpretation Comments Chloride Lvl (test code = Chloride Lvl) 93 95-109 [place] 662952-06-28 04:12:00 Test Item Value Reference Range Interpretation Comments CO2 (test code = CO2) 31 24-32 [place] 662952-06-28 04:12:00 Test Item Value Reference Range Interpretation Comments Calcium Lvl (test code = Calcium Lvl) 9.1 8.5-10.5 [place] 662952-06-28 04:12:00 Test Item Value Reference Range Interpretation Comments Total Protein (test code = Total 6.8 6.4-8.4 Protein) [place] 662952-06-28 04:12:00 Test Item Value Reference Range Interpretation Comments Albumin Lvl (test code = Albumin Lvl) 2.5 3.5-5.0 [place] 662952-06-28 04:12:00 Test Item Value Reference Range Interpretation Comments ALT (test code = ALT) 51 See_Comment [Auto mated message] The system which ge nerated this result transmit swathi reference range : <=65. The reference range was not used to interpr et this result as deny l/abnormal. [place] 662952-06-28 04:12:00 Test Item Value Reference Range Interpretation Comments AST (test code = AST) 36 See_Comment [Auto mated message] The system which ge nerated this result transmit swathi reference range : <=37. The reference range was not used to interpr et this result as deny l/abnormal. [facility] HospitalAvanti Wind Systems [id number] 04:12:00 Test Item Value Reference Range Interpretation Comments Alk Phos (test code = Alk Phos) 383 39-136 [facility] HospitalSoftware Spectrum CorporationKATIE [place] [id number] 04:12:00 Test Item Value Reference Range Interpretation Comments Bili Total (test code = Bili Total) 1.1 0.2-1.3 [facility] HospitalAvanti Wind Systems [id number] 04:12:00 Test Item Value Reference Range Interpretation Comments AGAP (test code = AGAP) 13.9 10.0-20.0 [facility] HospitalA[facility] Systems [id number] 04:12:00 Test Item Value Reference Range Interpretation Comments B/C Ratio (test code = B/C Ratio) 7 1 6-25 [place] 662952-06-28 04:12:00 Test Item Value Reference Range Interpretation Comments Globulin (test code = Globulin) 4.3 2.7-4.2 [facility] HospitalAvanti Wind Systems [id number] 04:12:00 Test Item Value Reference Range Interpretation Comments A/G Ratio (test code = A/G Ratio) 0.6 1 0.7-1.6 [place] 662952-06-28 04:12:00 Test Item Value Reference Range Interpretation Comments eGFR (test code = eGFR) 5 [place] 662952-06-28 04:12:00 Test Item Value Reference Range Interpretation Comments Procalcitonin Lvl (test 0.69 See_Comment [Au tomated message] code = Procalcitonin Lvl) Th e system which generated this result transmitted ref erence range: <=0.10. The reference range was not used to interpr et this result as normal/abnormal . [facility] PasoJckiiilWNKSDTDXRR9599-60-90 04:12:00 Test Item Value Reference Range Interpretation Comments WBC (test code = WBC) 4.1 3.7-10.4 [place] 475022-06-28 04:12:00 Test Item Value Reference Range Interpretation Comments RBC (test code = RBC) 1.78 4.70-6.10 [place] [address]-06-28 04:12:00 Test Item Value Reference Range Interpretation Comments Hgb (test code = Hgb) 6.5 14.0-18.0 [facility] BudaZtfnxurJFDFEBPLOK4987-68-11 04:12:00 Test Item Value Reference Range Interpretation Comments Hct (test code = Hct) 19.5 42.0-54.0 [facility] BudaTydwqqkCAZUMDSVEL8583-08-55 04:12:00 Test Item Value Reference Range Interpretation Comments MCV (test code = MCV) 110.0 80.0-94.0 [facility] BudaKotoabzZFDWZNUSUZ0201-25-76 04:12:00 Test Item Value Reference Range Interpretation Comments MCH (test code = MCH) 36.5 pg 27.0-31.0 [facility] BudaXoqtwmpNQOKVOLLCZ1890-60-05 04:12:00 Test Item Value Reference Range Interpretation Comments MCHC (test code = MCHC) 33.2 32.0-36.0 [facility] BudaTxsrypoLBVMMWMXSX6845-80-12 04:12:00 Test Item Value Reference Range Interpretation Comments RDW (test code = RDW) 19.0 11.5-14.5 [facility] BudaWqctvjoVOYSTZIJWO5546-07-77 04:12:00 Test Item Value Reference Range Interpretation Comments Platelet (test code = Platelet) 180 133-450 [facility] BudaGswkhegMWCIREWMBM6187-21-44 04:12:00 Test Item Value Reference Range Interpretation Comments MPV (test code = MPV) 8.3 7.4-10.4 [facility] BudaSbszimzPYHKWXKSDF8262-83-93 04:12:00 Test Item Value Reference Range Interpretation Comments PTT (test code = PTT) 45.4 s 22.9-35.8 [facility] BudaChexbvhPXQYOMPGAR4784-38-54 04:12:00 Test Item Value Reference Range Interpretation Comments PT (test code = PT) 19.1 s 12.0-14.7 [facility] BudaRgzyvzmDFMBUIJKZP1432-45-42 04:12:00 Test Item Value Reference Range Interpretation Comments INR (test code = INR) 1.62 1 0.85-1.17 [facility] BudaJyqcraqQAIKCAAWUS6712-30-56 04:12:00 Test Item Value Reference Range Interpretation Comments RBC Morph (test code = See Note (11/24/21 RBC Morph) 11:12 PM) [facility] BudaOvaeqaeBAQDNNIBLD3776-51-91 04:12:00 Test Item Value Reference Range Interpretation Comments Plt Morph (test code = Normal (11/24/21 11:12 Plt Morph) PM) [facility] BudaFtjzrcjGDULFTWGOC2402-09-10 04:12:00 Test Item Value Reference Range Interpretation Comments Segs (test code = Segs) 72.2 45.0-75.0 [place] 475022-06-28 04:12:00 Test Item Value Reference Range Interpretation Comments Lymphocytes (test code = Lymphocytes) 16.2 20.0-40.0 [place] 475022-06-28 04:12:00 Test Item Value Reference Range Interpretation Comments Monocytes (test code = Monocytes) 8.0 2.0-12.0 [place] 475022-06-28 04:12:00 Test Item Value Reference Range Interpretation Comments Eosinophils (test code = 2.7 See_Comment [A utomated message] The Eosinophils) system which ge nerated this result tra nsmitted reference range : <=4.0. The reference r samantha was not used to int erpret this result as normal/abnormal . [facility] BudaVumtddsBTIITWTFJT3928-86-29 04:12:00 Test Item Value Reference Range Interpretation Comments Basophils (test code = 0.9 See_Comment [Aut omated message] The Basophils) system which ge nerated this result tra nsmitted reference range : <=1.0. The reference r samantha was not used to int erpret this result as normal/abnormal . [facility] BudaTaencheJDXNFUWAVM7086-08-79 04:12:00 Test Item Value Reference Range Interpretation Comments Neutrophils # (test code = Neutrophils 2.9 1.5-8.1 #) [facility] BudaNipsenrROPVROVBIB7913-59-30 04:12:00 Test Item Value Reference Range Interpretation Comments Lymphocytes # (test code = Lymphocytes 0.7 1.0-5.5 #) [place] 475022-06-28 04:12:00 Test Item Value Reference Range Interpretation Comments Monocytes # (test code 0.3 See_Comment [Aut omated message] The = Monocytes #) system which generated this result tra nsmitted reference range : <=0.8. The reference r samantha was not used to int erpret this result as normal/abnormal . [place] 475022-06-28 04:12:00 Test Item Value Reference Range Interpretation Comments Eosinophils # (test code 0.1 See_Comment [A utomated message] The = Eosinophils #) system [employer] generated this result tra nsmitted reference range : <=0.5. The reference r samantha was not used to int erpret this result as normal/abnormal . [facility]AcnbmfiEMVSJIZUPY5377-54-44 04:12:00 Test Item Value Reference Range Interpretation Comments Anisocyte (test code = 1+ *ABN*(11/24/21 Anisocyte) 11:12 PM) [facility] PasoGkqylfxAQWZWBMWOM6554-42-23 04:12:00 Test Item Value Reference Range Interpretation Comments Macrocyte (test code = 1+ *ABN*(11/24/21 Macrocyte) 11:12 PM) [facility] HospitalVoojfnzKETOMDJEDH0564-13-19 04:12:00 Test Item Value Reference Range Interpretation Comments Microcyte (test code = 1+ *ABN*(11/24/21 Microcyte) 11:12 PM) [facility] HospitalOGLOBIN [id number] 00:00:00 Test Item Value Reference Range Interpretation Comments A1C (test code = 4548-4) 8.8 HEMOGLOBIN [id number] 00:00:00 Test Item Value Reference Range Interpretation Comments A1C (test code = 4548-4) 8.3 HEMOGLOBIN [id number] 00:00:00 Test Item Value Reference Range Interpretation Comments A1C (test code = 4548-4) 10.3 Notes Date/Time Note Provider Source 2022-01-02 12:48:02-00:00 PROCEDURE INFORMATION: [facility] Exam: XR Chest Exam date and time: [...] Chester Kemp MD On 01/02/2022 13:11:40; CARMELA-KBRYA [id number] 0497-08-05 12:48:02-00:00 PROCEDURE INFORMATION: [facility] Exam: XR Chest Exam date and time: [...] Chester Kemp MD On 01/02/2022 13:11:40; VR-KBRYA [id number] 5472-08-05 12:48:02-00:00 PROCEDURE INFORMATION: [facility] Exam: XR Chest Exam date and time: [...] Chester Kemp MD On 01/02/2022 13:11:40; VR-KBRYA [id number] 6346-08-05 12:48:02-00:00 PROCEDURE INFORMATION: [facility] Exam: XR Chest Exam date and time: [...] Chester Kemp MD On 01/02/2022 13:11:40; VR-KBRYA [id number] 7121-07-18 12:00:00-00:00 Radiation Dose CTDIVOL = 0 ( mGy): DLP = 1052.78 (mGy-cm) [facility] PROCEDURE INFORMATION: Exam: CTA Chest With Contrast Exam date and time: 12/15/2021 12:49 PM Age: 76 years old Clinical indication: /possible pe, positive for covid-19, respiratory infections and infla 12/14/21 TECHNIQUE: Imaging protocol: Computed tomographic a ngiography of the chest with contrast. 3D rendering (Not supervised by radiologist): NM P and/or 3D reconstructed images were created [...] Alexis Maloney MD On 12/15/2021 15:45:07; VR- [id number] 2021-12-15 12:00:00-00:00 Radiation Dose CTDIVOL = 0 ( mGy): DLP = 1052.78 (mGy-cm) [facility] PROCEDURE INFORMATION: Exam: CTA Chest With Contrast Exam date and time: 12/15/2021 12:49 PM Age: 76 years old Clinical indication: /possible pe, positive for covid-19, respiratory infections and infla 12/14/21 TECHNIQUE: Imaging protocol: Computed tomographic a ngiography of the chest with contrast. 3D rendering (Not supervised by radiologist): NM P and/or 3D reconstructed images were created [...] Alexis Maloney MD On 12/15/2021 15:45:07; VR- [id number] 2021-12-15 12:00:00-00:00 Radiation Dose CTDIVOL = 0 ( mGy): DLP = 1052.78 (mGy-cm) [facility] PROCEDURE INFORMATION: Exam: CTA Chest With Contrast Exam date and time: 12/15/2021 12:49 PM Age: 76 years old Clinical indication: /possible pe, positive for covid-19, respiratory infections and infla 12/14/21 TECHNIQUE: Imaging protocol: Computed tomographic a ngiography of the chest with contrast. 3D rendering (Not supervised by radiologist): NM P and/or 3D reconstructed images were created [...] Alexis Maloney MD On 12/15/2021 15:45:07; VR- [id number] 2021-12-15 12:00:00-00:00 Radiation Dose CTDIVOL = 0 ( mGy): DLP = 1052.78 (mGy-cm) [facility] PROCEDURE INFORMATION: Exam: CTA Chest With Contrast Exam date and time: 12/15/2021 12:49 PM Age: 76 years old Clinical indication: /possible pe, positive for covid-19, respiratory infections and infla 12/14/21 TECHNIQUE: Imaging protocol: Computed tomographic a ngiography of the chest with contrast. 3D rendering (Not supervised by radiologist): NM P and/or 3D reconstructed images were created [...] Alexis Maloney MD On 12/15/2021 15:45:07; PILAR [id number] 2021-12-14 15:50:31-00:00 PROCEDURE INFORMATION: [facility] Exam: XR Chest Exam date and time: [...] 16:21:28; SHARRI [id number] 2021-12-14 15:50:31-00:00 PROCEDURE INFORMATION: [facility] Exam: XR Chest Exam date and time: [...] 16:21:28; SHARRI [id number] 2021-12-14 15:50:31-00:00 PROCEDURE INFORMATION: [facility] Exam: XR Chest Exam date and time: [...] 16:21:28; SHARRI [id number] 2021-12-14 15:50:31-00:00 PROCEDURE INFORMATION: [facility] Exam: XR Chest Exam date and time: [...] 16:21:28; SHARRI [id number] 2021-12-03 20:30:42-00:00 PROCEDURE INFORMATION: [facility] Exam: XR Chest Exam date and time: [...] Avtar Fortune MD On 12/03/2021 21:17:23; [id number] 2021-12-03 20:30:42-00:00 PROCEDURE INFORMATION: [facility] Exam: XR Chest Exam date and time: [...] Avtar Fortune MD On 12/03/2021 21:17:23; [id number] 2021-12-03 20:30:42-00:00 PROCEDURE INFORMATION: [facility] Exam: XR Chest Exam date and time: [...] Avtar Fortune MD On 12/03/2021 21:17:23; [id number] 2021-12-03 20:30:42-00:00 PROCEDURE INFORMATION: [facility] Exam: XR Chest Exam date and time: [...] Avtar Fortune MD On 12/03/2021 21:17:23; [id number] 2021-11-25 05:45:00-00:00 PROCEDURE INFORMATION: [facility] Exam: US Duplex Lower Extremity Veins, Bilateral [...] Cole Barnes MD On 11/25/2021 07:01:56; VR-GSYN [id number] 2021-11-25 05:45:00-00:00 PROCEDURE INFORMATION: [facility] Exam: US Abdomen, Limited; Right Upper Quadrant [...] Kit Pollard MD On 11/25/2021 07:54:47; VR [id number] 2021-11-25 05:45:00-00:00 PROCEDURE INFORMATION: [facility] Exam: US Duplex Lower Extremity Veins, Bilateral [...] Cole Barnes MD On 11/25/2021 07:01:56; VR-GSYN [id number] 2021-11-25 05:45:00-00:00 PROCEDURE INFORMATION: [facility] Exam: US Abdomen, Limited; Right Upper Quadrant [...] Kit Pollard MD On 11/25/2021 07:54:47; VR [id number] 2021-11-25 05:45:00-00:00 PROCEDURE INFORMATION: [facility] Exam: US Duplex Lower Extremity Veins, Bilateral [...] Cole Barnes MD On 11/25/2021 07:01:56; VR-GSYN [id number] 2021-11-25 05:45:00-00:00 PROCEDURE INFORMATION: [facility] Exam: US Abdomen, Limited; Right Upper Quadrant [...] Kit Pollard MD On 11/25/2021 07:54:47; VR [id number] 2021-11-25 05:45:00-00:00 PROCEDURE INFORMATION: [facility] Exam: US Duplex Lower Extremity Veins, Bilateral [...] Cole Barnes MD On 11/25/2021 07:01:56; VR-GSYN [id number] 2021-11-25 05:45:00-00:00 PROCEDURE INFORMATION: [facility] Exam: US Abdomen, Limited; Right Upper Quadrant [...] Kit Pollard MD On 11/25/2021 07:54:47; VR [id number] 2021-11-25 02:17:08-00:00 PROCEDURE INFORMATION: [facility] Exam: XR Right Foot Exam date and [...] Surendra Chavis MD On 11/25/2021 02:27:52; [id number] 2021-11-25 02:17:08-00:00 PROCEDURE INFORMATION: [facility] Exam: XR Right Foot Exam date and [...] Surendra Chavis MD On 11/25/2021 02:27:52; [id number] 2021-11-25 02:17:08-00:00 PROCEDURE INFORMATION: [facility] Exam: XR Right Foot Exam date and [...] Surendra Chavis MD On 11/25/2021 02:27:52; [id number] 2021-11-25 02:17:08-00:00 PROCEDURE INFORMATION: [facility] Ex[facility]: XR Right Foot Exam date and [...] Surendra Chavis MD On 11/25/2021 02:27:52; [id number] 2021-11-24 23:56:05-00:00 Radiation Dose CTDIVOL = 0 ( mGy): DLP = 675.2 (mGy-cm) [facility] PROCEDURE INFORMATION: Exam: CT Abdomen And Pelvis [...] additional nonacute findings. COMMENTS: Consistent with the [employer] Incidental Findings [employer] [...] Surendra Chavis MD On 11/25/2021 00:47:46; VR-[id number] 2021-11-24 23:56:05-00:00 Radiation Dose CTDIVOL = 0 ( mGy): DLP = 675.2 (mGy-cm) [facility] PROCEDURE INFORMATION: Exam: CT Abdomen And Pelvis [...] additional nonacute findings. COMMENTS: Consistent with the [employer] Incidental Findings [employer] [...] Surendra Chavis MD On 11/25/2021 00:47:46; [id number] 2021-11-24 23:56:05-00:00 Radiation Dose CTDIVOL = 0 ( mGy): DLP = 675.2 (mGy-cm) [facility] PROCEDURE INFORMATION: Exam: CT Abdomen And Pelvis [...] additional nonacute findings. COMMENTS: Consistent with the [employer] Incidental Findings [employer] [...] Surendra Chavis MD On 11/25/2021 00:47:46; [id number] 2021-11-24 23:56:05-00:00 Radiation Dose CTDIVOL = 0 ( mGy): DLP = 675.2 (mGy-cm) [facility] PROCEDURE INFORMATION: Exam: CT Abdomen And Pelvis [...] additional nonacute findings. COMMENTS: Consistent with the [employer] Incidental Findings [employer] [...] Surendra Chavis MD On 11/25/2021 00:47:46; [id number] 2021-11-24 22:50:28-00:00 PROCEDURE INFORMATION: [facility] Exam: XR Chest Exam date and time: [...] Surendra Chavis MD On 11/24/2021 22:53:49; [id number] 2021-11-24 22:50:28-00:00 PROCEDURE INFORMATION: [facility] Exam: XR Chest Exam date and [...] Surendra Chavis MD On 11/24/2021 22:53:49; [id number] 2021-11-24 22:50:28-00:00 PROCEDURE INFORMATION: [facility] Exam: XR Chest Exam date and [...] Surendra Chavis MD On 11/24/2021 22:53:49; [id number] 2021-11-24 22:50:28-00:00 PROCEDURE INFORMATION: [facility] Exam: XR Chest Exam date and time: [...] Surendra Chavis MD On 11/24/2021 22:53:49; [id number]
[2022-12-09 16:50] LABS: Absolute Lymphocytes (CBC) 0.7 K/uL (0.7-4.9); Hematocrit 22.2 % (39.6-49.0); Lymphocytes % 15.5 % (15.3-44.8); MCV 84.1 fL (80-100); MPV 7.3 fL (7.6-11.3); RBC Red Blood Cell Count 2.64 M/uL (4.33-5.43)
[2022-12-09] MEDS ORDERED: NA CHLORIDE 0.9% 250 ML ONE (23:13)
--- NOTE | 2022-12-10 02:17 | ER ---
Nurse's Notes [facility] Name: Guzman Mayers Age: 77 yrs Sex: Male : 1945 Arrival Date: 12/09/2022 Time: 15:37 Bed 13 Private MD: Anita Sanchez Diagnosis: Anemia, unspecified Presentation: 12/09 16:10 Chief complaint: Patient states: Weak, tired, fatigued for 3 days. Sent in for blood ll1 transfusion by Kidney MD, last blood transfusion last week. 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 Coronavirus screen: Vaccine status: Patient reports receiving the 2nd dose of the covid vaccine. Client denies travel out of the [place] in the last 14 days. At this time, the client does not indicate any symptoms associated with coronavirus-19. Ebola Screen: Patient denies travel to an Ebola-affected area in the 21 days before illness onset. Initial Sepsis Screen: Does the patient meet any 2 criteria? No. Patient's initial sepsis screen is negative. Does the patient have a suspected source of infection? No. Patient's initial sepsis screen is negative. Risk Assessment: Do you want to hurt yourself or someone else? Patient reports no desire to harm self or others. Onset of symptoms was December 07, 2022. 16:10 Method Of Arrival: Wheelchair ll1 16:10 Acuity: CHICHO 2 ll1 Triage Assessment: 16:11 General: Appears uncomfortable, ill, Behavior is calm, cooperative, appropriate for ll1 age. Pain: Denies pain. Neuro: Reports weakness. Historical: - Allergies: 16:08 Codeine; ll1 16:08 GABAPENTIN; ll1 - PMHx: 16:08 Dialysis; MWF; HTN; High Cholesterol; Diabetes - IDDM; COPD; CKD; CHF; Hypertension; ll1 ADD/ADHD; blood transfusion; - PSHx: 16:08 L arm dialysis access; ll1 - Immunization history:: Client reports receiving the 2nd dose of the Covid vaccine. - Social history:: Smoking status: Patient denies any tobacco usage or history of. Screenin:30 [facility] ED Fall Risk Assessment (Adult) History of falling in the last 3 months, kc6 including since admission No falls in past 3 months (0 pts) Confusion or Disorientation No (0 pts) Intoxicated or Sedated No (0 pts) Impaired Gait Yes (1 pt) Mobility Assist Device Used Yes (1 pt) Altered Elimination No (0 pt) Score/Fall Risk Level 0 - 2 = Low Risk Oriented to surroundings, Maintained a safe environment, Educated pt \T\ family on fall prevention, incl call for assistance when getting out of bed, Assessed \T\ reinforced patient's understanding of fall precautions, Hourly rounding (assess needs \T\ fall precautionary measures) done. Abuse screen: Denies threats or abuse. Denies injuries from another. Nutritional screening: No deficits noted. Tuberculosis screening: No symptoms or risk factors identified. Assessment: 16:30 General: Appears in no apparent distress. comfortable, Behavior is calm, cooperative, kc6 appropriate for age. Neuro: Level of Consciousness is awake, alert, obeys commands, Oriented to person, place, time, situation, Appropriate for age. Cardiovascular: Capillary refill < 3 seconds. Respiratory: Airway is patent Trachea midline Respiratory effort is even, unlabored, Respiratory pattern is regular, symmetrical. Derm: Skin is intact, is healthy with good turgor, Skin is pale. 17:30 Reassessment: Patient appears in no apparent distress at this time. No changes from kc6 previously documented assessment. Patient and/or family updated on plan of care and expected duration. Pain level reassessed. Patient is alert, oriented x 3, equal unlabored respirations, skin warm/dry/pink. 18:30 Reassessment: Patient appears in no apparent distress at this time. No changes from kc6 previously documented assessment. Patient and/or family updated on plan of care and expected duration. Pain level reassessed. Patient is alert, oriented x 3, equal unlabored respirations, skin warm/dry/pink. 23:33 Reassessment: No changes from previously documented assessment. Patient and/or family ll3 updated on plan of care and expected duration. Pain level reassessed. Patient is alert, oriented x 3, equal unlabored respirations, skin warm/dry/pink. Vital Signs: 16:10 BP 143 / 54; Pulse 55; Resp 17; Temp 97.6; Weight 85.28 kg; Height 5 ft. 10 in. ; ll1 18:03 BP 138 / 49; Pulse 55; Resp 16; Pulse Ox 96% on R/A; kc6 19:00 BP 142 / 51; Pulse 61; Resp 19 S; Pulse Ox 99% on R/A; Pain 0/10; kc6 21:30 BP 157 / 52; Pulse 57; Resp 15; Pulse Ox 99% on R/A; ll3 23:32 BP 153 / 57; Pulse 57; Resp 15; Pulse Ox 98% on R/A; ll3 12/10 00:30 BP 154 / 69; Pulse 56; Resp 15; Pulse Ox 99% on 2 lpm NC; ll3 02:02 BP 167 / 60; Pulse 57; Resp 15; Pulse Ox 100% on 2 lpm NC; ll3 12/09 16:10 Body Mass Index 26.97 (85.28 kg, 177.8 cm) ll1 19:00 Pain Scale: Adult kc6 ED Course: 12/09 15:58 Patient arrived in ED. am2 15:58 Anita Sanchez MD is Private Physician. am2 16:08 Arm band placed on. ll1 16:12 Triage completed. 1 16:13 Héctor Lopez PA is PHCP. [facility] 16:13 Anderson Mitchell MD is Attending Physician. [facility] 16:24 Hollie Combs, GILSON is Primary Nurse. kc6 16:30 Patient has correct armband on for positive identification. Bed in low position. Call kc6 light in reach. Side rails up X2. 16:41 Inserted saline lock: 20 gauge in right antecubital area, using aseptic technique. kc6 Blood collected. 12/10 02:34 No provider procedures requiring assistance completed. IV discontinued, intact, ll3 bleeding controlled, No redness/swelling at site. Pressure dressing applied. Administered Medications: No medications were administered Medication: 01:59 VIS not applicable for this client. ll3 Outcome: 02:16 Discharge ordered by . [facility] 02:34 Discharged to home via wheelchair, with family. ll3 02:34 Condition: stable 02:34 Discharge instructions given to patient, family, Instructed on discharge instructions, follow up and referral plans. Demonstrated understanding of instructions, follow-up care. 02:34 Patient left the ED. ll3 Signatures: Héctor Lopez PA PA [facility] [place] am2 Devin Lazo RN RN ll1 Hu Cortez RN RN ll3 Hollie Combs, RN RN kc6 Corrections: (The following items were deleted from the chart) 12/09 19:01 19:00 BP 133 / 87; Pulse 84bpm; Resp 19bpm; Spontaneous; Pulse Ox 99% RA; Pain 010, kc6 Adult; kc6
--- NOTE | 2022-12-10 02:17 | EDPHYS ---
Physician Documentation [facility] Name: Guzman Mayers Age: 77 yrs Sex: Male : 1945 Arrival Date: 12/09/2022 Time: 15:37 Bed 13 Private MD: Anita Sanchez ED Physician Anderson Mitchell HPI: 12/09 16:17 This 77 yrs old Male presents to ER via Wheelchair with complaints of blood jmm transfusion. 16:17 This is a 77-year-old male with history of end-stage renal disease, hypertension, jmm lipidemia, diabetes mellitus, anemia, COPD department with complaints of generalized fatigue. Patient was sent by nephrology for 2 units of blood. Patient does not want to be admitted.. Historical: - Allergies: 16:08 Codeine; ll1 16:08 GABAPENTIN; ll1 - PMHx: 16:08 Dialysis; MWF; HTN; High Cholesterol; Diabetes - IDDM; COPD; CKD; CHF; Hypertension; ll1 ADD/ADHD; blood transfusion; - PSHx: 16:08 L arm dialysis access; ll1 - Immunization history:: Client reports receiving the 2nd dose of the Covid vaccine. - Social history:: Smoking status: Patient denies any tobacco usage or history of. ROS: 16:17 Constitutional: Positive for fatigue. jmm 16:17 Neuro: Positive for weakness. 16:17 All other systems are negative. Exam: 16:17 Constitutional: This is a well developed, well nourished patient who is awake, alert, jmm and in no acute distress. Head/Face: atraumatic. Eyes: EOMI, no conjunctival erythema appreciated ENT: Moist Mucus Membranes Neck: Trachea midline, Supple Chest/axilla: Normal chest wall appearance and motion. Cardiovascular: Regular rate and rhythm. No edema appreciated Respiratory: Normal respirations, no respiratory distress appreciated Abdomen/GI: Non distended Back: Normal ROM Skin: General appearance color normal MS/ Extremity: Moves all extremities, no obvious deformities appreciated, no edema noted to the lower extremities Neuro: Awake and alert Psych: Behavior is normal, Mood is normal, Patient is cooperative and pleasant Vital Signs: 16:10 BP 143 / 54; Pulse 55; Resp 17; Temp 97.6; Weight 85.28 kg; Height 5 ft. 10 in. ; ll1 18:03 BP 138 / 49; Pulse 55; Resp 16; Pulse Ox 96% on R/A; kc6 19:00 BP 142 / 51; Pulse 61; Resp 19 S; Pulse Ox 99% on R/A; Pain 0/10; kc6 21:30 BP 157 / 52; Pulse 57; Resp 15; Pulse Ox 99% on R/A; ll3 23:32 BP 153 / 57; Pulse 57; Resp 15; Pulse Ox 98% on R/A; ll3 12/10 00:30 BP 154 / 69; Pulse 56; Resp 15; Pulse Ox 99% on 2 lpm NC; ll3 02:02 BP 167 / 60; Pulse 57; Resp 15; Pulse Ox 100% on 2 lpm NC; ll3 12/09 16:10 Body Mass Index 26.97 (85.28 kg, 177.8 cm) ll1 19:00 Pain Scale: Adult kc6 MDM: 12/09 16:17 Patient medically screened. [facility] 16:17 Differential Diagnosis Anemia. Data reviewed: vital signs, nurses notes. Refusal of jm service: The patient/guardian displays adequate decision making capability and despite a detailed discussion of alternatives, benefits, risks, and consequences refuses: Admission to the hospital for further work-up and treatment. 12/10 02:13 Counseling: I had a detailed discussion with the patient and/or guardian regarding: the [facility] historical points, exam findings, and any diagnostic results supporting the discharge/admit diagnosis, the need for outpatient follow up, to return to the emergency department if symptoms worsen or persist or if there are any questions or concerns that arise at home. 12/09 16:16 Order name: CBC with Diff; Complete Time: 16:54 [facility] 12/09 16:16 Order name: Type And Screen [facility] 12/09 17:55 Order name: Packed RBCs (Additional Unit) [facility] 12/09 16:17 Order name: Saline Lock; Complete Time: 16:41 [facility] Administered Medications: No medications were administered Disposition Summary: 12/10/22 02:16 Discharge Ordered Location: Home [facility] Condition: Stable [facility] Diagnosis - Anemia, unspecified jmm Followup: [facility] - With: Private Physician - When: 2 - 3 days - Reason: Recheck today's complaints, Continuance of care, Re-evaluation by your physician Discharge Instructions: - Discharge Summary Sheet [facility] - Anemia josiah Forms: - Medication Reconciliation Form jmm - Thank You Letter jmm - Antibiotic Education jmm - Prescription Opioid Use jmm - Patient Portal Instructions.htm dagmar Signatures: Dispatcher [employer] EDMS Héctor Lopez PA PA jmm Lewis, Lynsay, RN RN ll1 Corrections: (The following items were deleted from the chart) 12/09 17:24 16:55 PACKED RBC LEUKORED+[id number].LAB.BRZ ordered. EDMS EDMS 17:24 16:57 ABO/RH typing ordered. EDMS EDMS 17:24 16:57 Antibody Screen ordered. EDMS EDMS
[2022-12-10 03:57] VITALS: TEMP 97.6
[2022-12-10 04:04] VITALS: BP 167/60; O2SAT 100
== END 2022-12-10 02:34 | disposition home or self-care (01) ==
LOC: LAB 15:37 → ER 15:37 → EDSTATUS 15:56 → ER 12-10 02:34
PROC: 30233N1 Transfusion of Nonautologous Red Blood Cells into Peripheral Vein, Percutaneous Approach (ICD-10-PCS; principal; 2022-12-10)
DX: D64.9 Anemia, unspecified (principal); E11.22 Type 2 diabetes mellitus with diabetic chronic kidney disease; I13.2 Hypertensive heart and chronic kidney disease with heart failure and with stage 5 chronic kidney disease, or end stage renal disease; I50.9 Heart failure, unspecified; N18.6 End stage renal disease; Z99.2 Dependence on renal dialysis; Z88.5 Allergy status to narcotic agent; Z88.8 Allergy status to other drugs, medicaments and biological substances
CPT/HCPCS: 85025; 36415; 86900; 86850; 86901; 86920 ×2; 99284; 36430; P9016 ×2; J7050

== ENCOUNTER 2022-12-25 17:27 | Observation (INO) | payer OTHER, BC ==
--- OUTSIDE RECORDS SUMMARY | 2022-12-25 18:11 | XMS REPORT | Continuity of Care Document ---
:1945 Author Organization [facility] t Address [address] [facility] [place] [address] Care Team Providers Name Role Phone LA FORTUNE Primary Care Physician Unavailable La Fortune Attending Clinician Unavailable [id number] Attending Clinician Unavailable RONNIE AYALA Attending Clinician Unavailable Ronnie Mendoza Attending Clinician Ubaldo Davis RN Attending Clinician Unavailable MARIANNA BARBOUR Attending Clinician Unavailable Fabian Fernandes MD Attending Clinician Mine Mosqueda DO Attending Clinician Marianna Barbour MD Attending Clinician CAREY LONG Attending Clinician Unavailable Carey Long Attending Clinician ZACHARY BRUNO Attending Clinician Unavailable Zachary Bruno Attending Clinician Monse Velazquze Attending Clinician Pepper Crawford Attending Clinician [phone] PEPPER CRAWFORD Attending Clinician Unavailable MONSE VELAZQUEZ Attending Clinician Unavailable CHILANGO ARMSTRONG NATASHA Attending Clinician Unavailable [id number] Admitting Clinician Unavailable RONNIE AYALA Admitting Clinician Unavailable MINE MOSQUEDA Admitting Clinician Unavailable Mine Mosqueda DO Admitting Clinician ZACHARY BRUNO Admitting Clinician Unavailable Zachary Bruno Admitting Clinician Monse Velazquez Admitting Clinician [phone] MONSE VELAZQUEZ Admitting Clinician Unavailable CHILANGO ARMSTRONG NATASHA Admitting Clinician Unavailable Payers Payer Name Policy Type Policy Effective Date Expiration Date Sour ce Number MEDICARE PART A [id number] 2011 AND B 00:00:00 MEDICARE PART A [id number] 2010 \\T\\ B 00:00:00 BCBS TRADITIONAL [id number] 2014 00:00:00 Blue Cross Blue 6 [id number] 2014 [facility] 00:00:00 - [facility] [id number] BCTX BCTI [id number] MEDICARE NOVITAS [id number] 2011 [facility] 00:00:00 - [facility] MEDICARE NOVITAS [id number] 2011 [facility] 00:00:00 - [facility] MEDICARE NOVITAS [id number] 2011 [facility] 00:00:00 [facility] Problems Condition Condition Condition Status Onset Resolution Last Treating Co mments Source Name Details Category Date Date Treatment Clinician Date E46 E46 Disease Active Univers Unspecifie Unspecifie 5-16 it y of d severe d severe 00:00: [place] protein-ca protein-ca 00 Me dical ajay ajay Branch malnutriti malnutriti on on Elevated Elevated Disease Active Unive rs troponin I troponin I 5-14 it y of level level 00:00: [place] 00 Medical Branch Elevated Elevated Disease Active [...] 5-14 it y of on on 00:00: [place] [facility] Branch Syncope Syncope Disease Active Univers 5-14 ity of 00:00: [place] [address] Medical Branch Anemia Anemia Disease Active Univers associated associated 5-14 it y of with with 00:00: [place] nutritiona nutritiona 00 Me dical l Branch deficiency deficiency Dyslipidem Dyslipidem Disease Active U nivers ia ia 5-14 ity of 00:00: [place] [facility] Bifascicul Bifascicul Disease Active U nivers ar block ar block 5-14 ity of 00:00: [place] [facility] Atrial Atrial Disease Active Univers flutter flutter 5-14 ity of 00:00: [place] [facility] Branch Encephalop Encephalop Disease Active U nivers athy athy 5-14 ity of 00:00: [place] [facility] Hypoglycem Hypoglycem Disease Active U nivers ia ia 5-13 ity of 00:00: [place] [address] Medical Branch LOW LOW Diagnosis Active 2022-01-02 Mem oria HEMOGLOBIN HEMOGLOBIN 01-02 12:51:00 l COUNT/ COUNT/ 00:00: [place] NEEDING NEEDING 00 DIALYZED DIALYZED Active 01/02/2022 [facility] PNA DUE TO PNA DUE Diagnosis Active 2022-08-31 Memoria COVID-19 TO 12-14 21:48:00 l VIRUS COVID-19 00:00: [place] VIRUS 00 Active 12/14/2021 [facility] [place] DIFFICULTY Diagnosis Active 2021-12-14 Memoria BREATHING DIFFICULTY 12-14 17:56:00 l BREATHING 00:00: [place] Active 00 12/14/[facility] ABNORNAL ABNORNAL Diagnosis Active 2021-12-16 Memoria LAB LAB Active 12-03 05:50:00 l 08:00: [place] n 2 [facility] 00 [place] ANEMIA, ANEMIA, Diagnosis Active 2021-12-16 Memoria COVID-19 COVID-19 11-24 05:50:00 l Active 00:00: [place] 11/24/2021 [facility] [place] LOW LOW Diagnosis Active 2021-11-24 Mem oria HEMOGOBLIN HEMOGOBLIN 11-24 23:20:00 l Active 00:00: [place] 11/24/2021 [facility] Cellulitis Cellulitis Disease Active U nivers of right of right 12-29 ity of leg leg 00:00: [address] [id number] Other Problem Common obesity Spirit due to - [facility] excess [facility] [id number] Metabolic Problem Com mon syndrome Spirit - [facility] [id number] Body mass Problem Com mon index Spirit [BMI] - [facility] 30.0-30.9, [facility] [id number] Frailty Problem Commo n syndrome Spirit in - [facility] geriatric [facility] 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 - 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 s [facility] [id number] Type 2 Problem Common diabetes Spirit mellitus - [facility]I with 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 on [facility] Medical [place] [id number] Memory Problem Common impairment Spirit of gradual - CHI onset [facility] [id number] HTN, goal Problem Comm on below Spirit 130/80 - CHI [facility] [id number] Anemia of Problem Com mon chronic Spirit disease - CHI [facility] [id number] custodial Problem Com mon (current) Spirit use of - CHI insulin [facility] [id number] Benign Problem Common prostatic Spirit hyperplasi - CHI a without [facility] urinary Medical tract Center symptoms Hypertroph Obstructiv Problem C ommon ic e Spirit 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 [facility] Hypertensi Hypertensi Problem C ommon ve heart ve chronic Spir it AND kidney - CHI chronic disease kidney with stage [facility] disease 5 chronic Medica l [...] Active Unknown Commo n in in Spirit [facility] codeine codeine Active Unknown [facility] codeine codeine Active Memoria l [place] gabapent gabapent Active Memori a in in l [place] Social History Social Habit Start Date Stop Date Quantity Comments Source History of tobacco Cigarette Smoker University of use [place] [facility] History SDOH University o f Alcohol Std Drinks [place] [facility] History SDOH University o f Alcohol Binge [place] [facility] al [facility] History SDOH Social Unive rsity of Connections [facility] Med ical Together Branch History SDOH Social Unive rsity of Connections [facility] Medical Branch History SDOH Social Unive rsity of Connections [place] [facility] Membership Branch History SDOH Social Unive rsity of Connections [place] [facility] Meetings Branch Alcohol intake 2022-10-31 2022-10-31 Ex-drinker University of 00:00:00 00:00:00 (finding) [place] [facility] History SDOH 2022-10-12 2022-10-12 1 University o f Alcohol Frequency 00:00:00 00:00:00 [facility] [place] [facility] edical Branch History SDOH Social 2022-10-12 2022-10-12 5 Unive rsity of Connections Phone 00:00:00 00:00:00 [facility] [place] [facility] edical Branch History SDOH Social 2022-10-12 2022-10-12 [...] 1 Univers ity of Worry 00:00:00 00:00:00 [place] [facility] History SDOH Food 2022-10-12 2022-10-12 1 Univers ity of Scarcity 00:00:00 00:00:00 [place] [facility] History SDOH 2022-10-12 2022-10-12 2 University o f Transport Med 00:00:00 00:00:00 [place] Medic al Branch History SDOH 2022-10-12 2022-10-12 2 University o f Transport Non-Med 00:00:00 00:00:00 [place] M edical Branch History SDOH 2022-10-12 2022-10-12 2 University o f Housing Unable to 00:00:00 00:00:00 [place] M edical Pay Branch History SDOH 2022-10-12 2022-10-12 1 University o f Housing Places 00:00:00 00:00:00 [place] Medi yahaira Lived Branch History SDMT 2022-10-12 2022-10-12 2 University o f Housing Homeless 00:00:00 00:00:00 [place] Me dical Last Year Branch Tobacco use and 2022-10-11 2022-10-11 Smokeless Universit y of exposure 00:00:00 00:00:00 tobacco non-user [place] Me dical Branch Tobacco Comment 2022-10-11 2022-10-11 pt has not Universit y of 00:00:00 00:00:00 smoked sice age [place] Med ical 19 Branch Exposure to 2022-09-30 2022-10-10 Not sure University of SARS-CoV-2 (event) 00:00:00 13:56:00 [facility] Sex Ass[birth year] At [birth year] Universit y of 00:00:00 00:00:00 [facility] Smoking Status Start Date Stop Date Source Social History 2021-12-04 02:37:37 2021-12-04 02:37:37 [facility] Medications Ordered Filled Start Stop Current Ordering Indication Dosage Frequency Signature Comments Components Source Medication Medication Date Date Medication? Clinician (SIG) Name Name aspirin 81 Yes [id number] 81mg Take 1 Univers mg EC 5-19 tablet by ity of tablet 00:00: mouth in [place] 00 the Medical morning. Branch aspirin 81 Yes [id number] 81mg Take 1 Univers mg EC 5-19 tablet by ity of tablet 00:00: mouth in [place] 00 the Medical morning. Branch aspirin 81 0 Yes [id number] 81mg Take 1 Univers mg EC 5-19 tablet by ity of tablet 00:00: mouth in [place] 00 the Medical morning. Branch citalopram Yes 20mg Take 1 Unive rs 20 mg 5-18 tablet by ity of tablet 14:40: mouth in [place] [address] the Medical morning. Branch atorvastati Yes 40mg Take 40 mg Univers n (LIPITOR) 5-18 by mouth ity of 40 mg 14:40: at [place] [address] bedtime. Medical Branch MULTIVITAMI Yes 1{tbl} Take 1 Tab Univers NS WITH 5-18 by mouth ity of EXTRA C 14:40: daily. [place] [address] Medical Branch citalopram Yes 20mg Take 1 Unive rs 20 mg 5-18 tablet by ity of tablet 14:40: mouth in [place] [address] the Medical morning. Branch atorvastati Yes 40mg Take 40 mg Univers n (LIPITOR) 5-18 by mouth ity of 40 mg 14:40: at [facility] 23 bedtime. Medical Branch MULTIVITAMI Yes 1{tbl} Take 1 Tab Univers NS WITH 5-18 by mouth ity of EXTRA C 14:40: daily. [address] Branch citalopram Yes 20mg Take 1 [...] ity of M.REC.ANLOG 12:58: 00:00 under the [place] (LANTUS 33 :00 skin every Medica l SOLOSTAR morning. Branch MI) carvediloL Yes [id number] 6.25mg Take 1 Univers 6.25 mg 5-18 tablet by ity of tablet 00:00: mouth in [place] 00 the Medical morning Branch and 1 tablet in the evening. Take with meals. pantoprazol Yes [id number] 40mg Take 1 Univers e 40 mg EC 5-18 tablet by ity of tablet 00:00: mouth in [place] 00 the Medical morning. Branch carvediloL 2023-0 Yes [id number] 6.25mg Take 1 Univers 6.25 mg 5-18 tablet by ity of tablet 00:00: mouth in [place] the morning Branch and 1 tablet in the evening. Take with meals. pantoprazol Yes [id number] 40mg Take 1 Univers e 40 mg EC 5-18 tablet by ity of tablet 00:00: mouth in [place] the morning. Branch carvediloL 0 Yes [id number] 6.25mg Take 1 Univers 6.25 mg 5-18 tablet by ity of tablet 00:00: mouth in [place] the morning Branch and 1 tablet in the evening. Take with meals. pantoprazol Yes [id number] 40mg Take 1 Univers e 40 mg EC 5-18 tablet by ity of tablet 00:00: mouth in [place] the morning. Branch amoxicillin 2022- Yes [id number] 500mg Take 1 Univers -pot 5-18 05-26 tablet by ity of clavulanate 00:00: 04:59 [place] 500 mg 00 :00 every 24 Medical (AUGMENTIN) (twenty-fo Br anch 500-125 mg ur) hours tablet for 7 days. amoxicillin 2022- Yes [id number] 500mg Take 1 Univers -pot 5-18 05-26 tablet by ity of clavulanate 00:00: 04:59 [place] 500 mg 00 :00 every 24 Medical (AUGMENTIN) (twenty-fo Br anch 500-125 mg ur) hours tablet for 7 days. FENTanyl PF 0 Yes 25ug 25 mcg, Uni vers (SUBLIMAZE 5-17 Slow IV ity of (PF)) 11:05: Push, [place] injection 22 Q6HPRN, Medical 25 mcg Starting Branch on Wed10/14/22 at 0605, Until Discontinu ed, Routine, Pain (scale 4-6) FENTanyl PF 2022- No 12.5ug 12.5 mcg, Univers (SUBLIMAZE 5-17 05-17 Slow IV ity o f (PF)) 08:07: 11:05 Push, [place] injection 00 :38 Q6HPRN, Medical 12.5 mcg Starting Branch on Wed10/14/22 at 0307, Until Wed10/14/22 at 0605, Routine, Pain (scale 4-6) ampicillin- 0 2022- Yes 3g 3 g, IV Un [...] Yes 5mg 5 mg, Univer s (NORVASC) 516 Oral, ity of tablet 5 mg 20:15: [...] Medic al VIAL-MATE dose, On Branch IV [facility] piggyback 10/12/22 at 1600, Administer over 90 Minutes, 250 mL
Reas on for Anti-Infec tive: Documented Infection< br>Documen swathi Infection Site: Blood<br&g t;Duration of Therapy: 7 days methocarbam 2022-0 Yes 750mg 750 mg, Un arnie oL 5-15 Oral, ity of (ROBAXIN) 13:06: TIDPRN, [place] tablet 750 58 Starting Medic al mg on [facility] 10/12/22 at 0806, Until Discontinu ed, Routine, Muscle Spasms atorvastati 0 Yes 40mg 40 mg, Univ ers n (LIPITOR) 5-15 Oral, QHS, it y of tablet 40 02:00: First dose [place] mg 00 on [facility] 10/11/22 at Branch 2100, Until Discontinu ed, Routine docusate 0 Yes 100mg 100 mg, Unive rs (COLACE) 5-15 Oral, BID, ity o f capsule 100 01:30: First dose [place] mg 00 on [facility] 10/11/22 at Branch 2030, Until Discontinu ed, Routine aspirin EC 0 Yes 81mg 81 mg, Unive rs tablet 81 5-14 Oral, ity of mg 14:00: DAILY, [place] 00 First dose Medical on On License Of [facility] 10/11/22 at 0900, Until Discontinu ed, Routine pantoprazol 0 Yes 40mg 40 mg, Univ ers e 5-14 Oral, ity of (PROTONIX) 14:00: DAILY, [place] EC tablet 00 First dose Medi yahaira 40 mg on On License Of [facility] 10/11/22 at 0900, Until Discontinu ed, Routine citalopram 0 Yes 20mg 20 mg, Unive rs (CELEXA) 5-14 Oral, ity of tablet 20 14:00: DAILY, [place] mg 00 First dose Medical on On License Of [facility] 10/11/22 at 0900, Until Discontinu [...] 2315, Until 10/11/22 at 1206, MELO heparin 0 Yes 5000U [...] 100 UNIT/ML 00:00: 100 00 UNIT/ML aspirin 2021-0 No Notes: Do Memor ia 7-20 not crush l 14:00: or chew. [place] (Same As: Ecotrin) Procardia No Notes: Memori a XL 30 mg -20 (Same as: l oral 14:00: Adalat CC, [place] tablet, 00 Procardia extended XL) Give release on empty stomach. Take 1 hour before or 2 hours after meal; "Avoid grapefruit and grapefruit juice". Do not crush Epogen No Notes: Memoria (ESRD) 7-20 Same as: l 14:00: Retacrit) [place] 00 epoetin shannon-epbx 59520 unit/1 ml VL. For dialysis use only. WASTE: F/P - Red; E Red MEDICATION WASTE Product Size: 41532 unit Product Wasted: ___ unit aspirin No Notes: Do Memor ia 7-20 not crush l 14:00: or chew. [place] 00 (Same As: Ecotrin) Procardia No Notes: Memori a XL 30 mg 7-20 (Same as: l oral 14:00: Adalat CC, [place] tablet, 00 Procardia extended XL) Give release on empty stomach. Take 1 hour before or 2 hours after meal; "Avoid grapefruit and grapefruit juice". Do not crush Epogen No Notes: Memoria (ESRD) 7-20 Same as: l 14:00: Retacrit) [place] 00 epoetin shannon-epbx 66458 unit/1 ml VL. For dialysis use only. WASTE: F/P - Red; E Red MEDICATION WASTE Product Size: 16464 unit Product Wasted: ___ unit aspirin No Notes: Do Memor ia 7-20 not crush l 14:00: or chew. [place] 00 (Same As: Ecotrin) Procardia No Notes: Memori a XL 30 mg 7-20 (Same as: l oral 14:00: Adalat CC, [place] tablet, 00 Procardia extended XL) Give release on empty stomach. Take 1 hour before or 2 hours after meal; "Avoid grapefruit and grapefruit juice". Do not crush Epogen No Notes: Memoria (ESRD) 7-20 Same as: l 14:00: Retacrit) [place] 00 epoetin shannon-epbx 11588 unit/1 ml VL. For dialysis use only. WASTE: F/P - Red; E Red MEDICATION WASTE Product Size: 30382 unit Product Wasted: ___ unit aspirin No Notes: Do Memor ia 7-20 not crush l 14:00: or chew. [place] 00 (Same As: Ecotrin) Procardia No Notes: Memori a XL 30 mg 7-20 (Same as: l oral 14:00: Adalat CC, [place] tablet, 00 Procardia extended XL) Give release on empty stomach. Take 1 hour before or 2 hours after meal; "Avoid grapefruit and grapefruit juice". Do not crush Epogen No Notes: Memoria (ESRD) 7-20 Same as: l 14:00: Retacrit) [place] 00 epoetin shannon-epbx 69172 unit/1 ml VL. For dialysis use only. WASTE: F/P - Red; E Red MEDICATION WASTE Product Size: 05502 unit Product Wasted: ___ unit aspirin No Notes: Do Memor ia 7-20 not crush l 14:00: or chew. [place] 00 (Same As: Ecotrin) Procardia No Notes: Memori a XL 30 mg 7-20 (Same as: l oral 14:00: Adalat CC, [place] tablet, 00 Procardia extended XL) Give release on empty stomach. Take 1 hour before or 2 hours after meal; "Avoid grapefruit and grapefruit juice". Do not crush Epogen No Notes: Memoria (ESRD) 7-20 Same as: l 14:00: Retacrit) [place] epoetin shannon-epbx 81284 unit/1 ml VL. For dialysis use only. WASTE: F/P - Red; E Red MEDICATION WASTE Product Size: 91129 unit Product Wasted: ___ unit aspirin No Notes: Do Memor ia 7-20 not crush l 14:00: or chew. [place] (Same As: Ecotrin) Procardia No Notes: Memori a XL 30 mg 7-20 (Same as: l oral 14:00: Adalat CC, [place] tablet, 00 Procardia extended XL) Give release on empty stomach. Take 1 hour before or 2 hours after meal; "Avoid grapefruit and grapefruit juice". Do not crush Epogen No Notes: Memoria (ESRD) 7-20 Same as: l 14:00: Retacrit) [place] 00 epoetin shannon-epbx 75659 unit/1 ml VL. For dialysis use only. WASTE: F/P - Red; E Red MEDICATION WASTE Product Size: 64365 unit Product Wasted: ___ unit aspirin No Notes: Do Memor ia 7-20 not crush l 14:00: or chew. [place] (Same As: Ecotrin) Procardia No Notes: Memori a XL 30 mg 7-20 (Same as: l oral 14:00: Adalat CC, [place] tablet, 00 Procardia extended XL) Give release on empty stomach. Take 1 hour before or 2 hours after meal; "Avoid grapefruit and grapefruit juice". Do not crush Epogen No Notes: Memoria (ESRD) 7-20 Same as: l 14:00: Retacrit) [place] 00 epoetin shannon-epbx 69167 unit/1 ml VL. For dialysis use only. WASTE: F/P - Red; E Red MEDICATION WASTE Product Size: 11077 unit Product Wasted: ___ unit aspirin No Notes: Do Memor ia 7-20 not crush l 14:00: or chew. [place] 00 (Same As: Ecotrin) Procardia No Notes: Memori a XL 30 mg 7-20 (Same as: l oral 14:00: Adalat CC, [place] tablet, 00 Procardia extended XL) Give release on empty stomach. Take 1 hour before or 2 hours after meal; "Avoid grapefruit and grapefruit juice". Do not crush Epogen No Notes: Memoria (ESRD) 7-20 Same as: l 14:00: Retacrit) [place] 00 epoetin shannon-epbx 01605 unit/1 ml VL. For dialysis use only. WASTE: F/P - Red; E Red MEDICATION WASTE Product Size: 28596 unit Product Wasted: ___ unit aspirin No [...] (ESRD) 7-20 Same as: l 14:00: Retacrit) [place] 00 epoetin shannon-epbx 23484 unit/1 ml VL. For dialysis use only. WASTE: F/P - Red; E Red MEDICATION WASTE Product Size: 17461 unit Product Wasted: ___ unit aspirin No Notes: Do Memor ia 7-20 not crush l 14:00: or chew. [place] 00 (Same As: Ecotrin) Procardia No Notes: Memori a XL 30 mg 7-20 (Same as: l oral 14:00: Adalat CC, [place] tablet, 00 Procardia extended XL) Give release on empty stomach. Take 1 hour before or 2 hours after meal; "Avoid grapefruit and grapefruit juice". Do not crush Epogen No Notes: Memoria (ESRD) 7-20 Same as: l 14:00: Retacrit) [place] 00 epoetin shannon-epbx 65442 unit/1 ml VL. For dialysis use only. WASTE: F/P - Red; E Red MEDICATION WASTE Product Size: 06984 unit Product Wasted: ___ unit Lipitor No Notes: Memoria 7-20 (Same as: l 02:00: Lipitor) [place] Lipitor No Notes: Memoria 7-20 (Same as: l 02:00: Lipitor) [place] Lipitor No Notes: Memoria 7-20 (Same as: l 02:00: Lipitor) [place] Lipitor No Notes: Memoria 7-20 (Same as: l 02:00: Lipitor) [place] Lipitor No Notes: Memoria 7-20 (Same as: l 02:00: Lipitor) [place] Lipitor No Notes: Memoria 7-20 (Same as: l 02:00: Lipitor) [place] 00 Lipitor No Notes: Memoria 7-20 (Same as: l 02:00: Lipitor) [place] Lipitor No Notes: Memoria 7-20 (Same as: l 02:00: Lipitor) [place] 00 Lipitor No Notes: Memoria 7-20 (Same [...] l oral tablet 21:19: Daily, X 3 [place] day, # 3 tab, 0 Refill(s), Pharmacy: [facility] #[id number], 177.8, cm, 12/14/21 22:03:00 CDT, Height, 95.2, kg, 12/14/21 22:03:00 CDT, Weight dexamethaso Yes 6 mg = 1 Me moria ne 6 mg 7-19 tab, PO, l oral tablet 21:19: Daily, X 3 [place] day, # 3 tab, 0 Refill(s), Pharmacy: [facility] #[id number], 177.8, cm, 12/14/21 22:03:00 CDT, Height, 95.2, kg, 12/14/21 22:03:00 CDT, Weight dexamethaso 2022-0 Yes 6 mg = 1 Me moria ne 6 mg 7-19 tab, PO, l oral tablet 21:19: Daily, X 3 [place] day, # 3 tab, 0 Refill(s), Pharmacy: [facility] #[id number], 177.8, cm, 12/14/21 22:03:00 CDT, Height, 95.2, kg, 12/14/21 22:03:00 CDT, Weight dexamethaso 2022-0 Yes 6 mg = 1 Me moria ne 6 mg 7-19 tab, PO, l oral tablet 21:19: Daily, X 3 [place] 00 day, # 3 tab, 0 Refill(s), Pharmacy: [facility] #[id number], 177.8, cm, 12/14/21 22:03:00 CDT, Height, 95.2, kg, 12/14/21 22:03:00 CDT, Weight dexamethaso 2022-0 Yes 6 mg = 1 Me moria ne 6 mg 7-19 tab, PO, l oral tablet 21:19: Daily, X 3 [place] 00 day, # 3 tab, 0 Refill(s), Pharmacy: [facility] #[id number], 177.8, cm, 12/14/21 22:03:00 CDT, Height, 95.2, kg, 12/14/21 22:03:00 CDT, Weight dexamethaso 2022-0 Yes 6 mg = 1 Me moria ne 6 mg 7-19 tab, PO, l oral tablet 21:19: Daily, X 3 [place] day, # 3 tab, 0 Refill(s), Pharmacy: [facility] #[id number], 177.8, cm, 12/14/21 22:03:00 CDT, Height, 95.2, kg, 12/14/21 22:03:00 CDT, Weight dexamethaso 2022-0 Yes 6 mg = 1 Me moria ne 6 mg 7-19 tab, PO, l oral tablet 21:19: Daily, X 3 [place] day, # 3 tab, 0 Refill(s), Pharmacy: [facility] #[id number], 177.8, cm, 12/14/21 22:03:00 CDT, Height, 95.2, kg, 12/14/21 22:03:00 CDT, Weight dexamethaso 2-0 Yes 6 mg = 1 Me moria ne 6 mg 7-19 tab, PO, l oral tablet 21:19: Daily, X 3 [place] day, # 3 tab, 0 Refill(s), Pharmacy: [facility] #[id number], 177.8, cm, 12/14/21 22:03:00 CDT, Height, 95.2, kg, 12/14/21 22:03:00 CDT, Weight dexamethaso 2021-0 Yes 6 mg = 1 Me moria ne 6 mg 7-19 tab, PO, l oral tablet 21:19: Daily, X 3 [place] day, # 3 tab, 0 Refill(s), Pharmacy: [facility] cy #[id number], 177.8, cm, 12/14/21 22:03:00 CDT, Height, 95.2, kg, 12/14/21 22:03:00 CDT, Weight dexamethaso 2021-0 Yes 6 mg = 1 Me moria ne 6 mg 7-19 tab, PO, l oral tablet 21:19: Daily, X 3 [place] day, # 3 tab, 0 Refill(s), Pharmacy: [facility] #[id number], 177.8, cm, 12/14/21 22:03:00 CDT, [...] 7-19 tab, PO, l tablet 20:29: Bedtime, [place] 00 PRN for insomnia, # 14 tab, 0 Refill(s) melatonin 3 2021-0 Yes 3 mg = 1 Me moria mg oral 7-19 tab, PO, l tablet 20:29: Bedtime, [place] 00 PRN for insomnia, # 14 tab, 0 Refill(s) melatonin 3 2021-0 Yes 3 mg = 1 Me moria mg oral 7-19 tab, PO, l tablet 20:29: Bedtime, [place] 00 PRN for insomnia, # 14 tab, [...] 7-19 tab, PO, l tablet 20:29: Bedtime, [place] 00 PRN for insomnia, # 14 tab, 0 Refill(s) melatonin Yes 3 mg = 1 Me moria mg oral 7-19 tab, PO, l tablet 20:29: Bedtime, [place] 00 PRN for insomnia, # 14 tab, 0 Refill(s) melatonin Yes 3 mg = 1 Me moria mg oral 7-19 tab, PO, l tablet 20:29: Bedtime, [place] 00 PRN for insomnia, # 14 tab, 0 Refill(s) melatonin Yes 3 mg = 1 Me moria mg oral 7-19 tab, PO, l tablet 20:29: Bedtime, [place] 00 PRN for insomnia, # 14 tab, 0 Refill(s) melatonin Yes 3 mg = 1 Me moria mg oral 7-19 tab, PO, l tablet 20:29: Bedtime, [place] 00 PRN for insomnia, # 14 tab, [...] l oral tablet 20:27: Q12H, # 60 [place] 00 tab, 0 Refill(s) bisacodyl 5 Yes 10 mg = 2 M emoria mg oral 7-19 tab, PO, l enteric 20:27: Daily, PRN Herm silas coated 00 Constipati tablet on, # 20 tab, 0 Refill(s) carvedilol Yes 12.5 mg = Me moria 12.5 mg 7-19 1 tab, PO, l oral tablet 20:27: Q12H, # 60 [place] 00 tab, 0 Refill(s) bisacodyl 5 0 [...] l oral tablet 20:27: Q12H, # 60 [place] 00 tab, 0 Refill(s) bisacodyl 5 0 [...] l oral tablet 20:27: Q12H, # 60 [place] 00 tab, 0 Refill(s) bisacodyl 5 Yes [...] [place] 00 tab, 0 Refill(s) aspirin 81 2022-0 Yes 81 mg [...] hours after meals. (Same As: Zithromax) azithromyci 2021-0 No Notes: Heath bobo n 250 mg 7-19 Take 1 l oral tablet 19:00: hour [place] n 00 before or 2 hours after meals. (Same As: Zithromax) azithromyci 2021-0 No Notes: Heath bobo n 250 mg 7-19 Take 1 l oral tablet 19:00: hour [place] 00 before or 2 hours after meals. (Same As: Zithromax) azithromyci 2021-0 No Notes: Heath bobo n 250 mg 7-19 Take 1 l oral tablet 19:00: hour [place] 00 before or 2 hours after meals. (Same As: Zithromax) azithromyci 2021-0 No Notes: Heath bobo n 250 mg 7-19 Take 1 l oral tablet 19:00: hour [place] 00 before or 2 hours after meals. (Same As: Zithromax) azithromyci 2021-0 No Notes: Heath bobo n 250 mg 7-19 Take 1 l oral tablet 19:00: hour [place] n 00 before or 2 hours after meals. (Same As: Zithromax) azithromyci 2021-0 No Notes: Heath bobo n 250 mg 7-19 Take 1 l oral tablet 19:00: hour [place] 00 before or 2 hours after meals. (Same As: Zithromax) azithromyci 2021-0 No Notes: Heath bobo n 250 mg 7-19 Take 1 l oral tablet 19:00: hour [place] n 00 before or 2 hours after meals. (Same As: Zithromax) azithromyci 2021-0 No Notes: Heath bobo n 250 mg 7-19 Take 1 l oral tablet 19:00: hour [place] 00 before or 2 hours after meals. (Same As: Zithromax) azithromyci 2021-0 No Notes: Heath bobo n 250 mg 7-19 Take 1 l oral tablet 19:00: hour [place] 00 before or 2 hours after meals. (Same As: Zithromax) sevelamer 2021-0 No Notes: Memori a 7-19 Same as: l 13:00: Renvela [place] sevelamer No Notes: Memori a 7-19 Same as: l 13:00: Renvela [place] sevelamer No Notes: Memori a 7-19 Same as: l 13:00: Renvela [place] sevelamer No Notes: Memori a 7 Same as: l 13:00: Renvela [place] sevelamer No Notes: Memori a 7- Same as: l 13:00: Renvela [place] sevelamer No Notes: Memori a - Same as: l 13:00: Renvela [place] sevelamer No Notes: Memori a 12-16 Same as: l 13:00: Renvela [place] sevelamer No Notes: Memori a 12-16 Same as: l 13:00: Renvela [place] sevelamer No Notes: Memori a 12-16 Same as: l 13:00: Renvela [place] sevelamer No Notes: Memori a - Same as: l 13:00: Renvela [place] albumin Yes Notes: Lot Heath broussard human [...] mercado 25% 12-16 #: l intravenous 02:33: [place] solution ___ Mfg: (Same as: Plasbumin- 25) "blood product derivative " WASTE: F/P - Red; E -Red MEDICATION WASTE Product Size: 25 gm Product Wasted: ___ gm albumin Yes Notes: Na [place] 25% 12-16 #: l intravenous 02:33: [place] solution ___ Mfg: (Same as: Plasbumin- 25) "blood product derivative " WASTE: F/P - Red; E -Red MEDICATION WASTE Product Size: 25 gm Product Wasted: ___ gm albumin Yes Notes: Na Patel% 12-16 #: l intravenous 02:33: [place] solution [...] mercado 25% 12-16 #: l intravenous 02:33: [place] solution 00 ___ Mfg: (Same as: Plasbumin- [...] ne 7-18 Give with l 14:00: food. 00 dexamethaso No Notes: Heath bobo ne 7-18 Give with l 14:00: food. [place] 00 dexamethaso No Notes: Heath bobo ne 7-18 Give with l 14:00: food. [place] 00 dexamethaso No Notes: Heath bobo ne 7-18 Give with l 14:00: food. [place] 00 dexamethaso No Notes: Heath bobo ne 7-18 Give with l 14:00: food. [place] 00 albuterol-i No Notes: Heath bobo pratropium 7-18 Same as: l 13:00: Combivent [place] Respimat WASTE: Aerosol - Return to Pharmacy albuterol-i No Notes: Heath bobo pratropium 7-18 Same as: l 13:00: Combivent [place] Respimat WASTE: Aerosol - Return to Pharmacy albuterol-i No Notes: Heath bobo pratropium 7-18 Same as: l 13:00: Combivent [place] Respimat WASTE: Aerosol - Return to Pharmacy albuterol-i No Notes: Heath bobo pratropium 7-18 Same as: l 13:00: Combivent [place] 00 Respimat WASTE: Aerosol - Return to Pharmacy albuterol-i No Notes: Heath bobo pratropium 7-18 Same as: l 13:00: Combivent [place] Respimat WASTE: Aerosol - Return to Pharmacy albuterol-i No Notes: Heath bobo pratropium 7-18 Same as: l 13:00: Combivent [place] 00 Respimat WASTE: Aerosol - Return to Pharmacy albuterol-i No Notes: Heath bobo pratropium 7-18 Same as: l 13:00: Combivent [place] 00 Respimat WASTE: Aerosol - Return to Pharmacy albuterol-i No Notes: Heath bobo pratropium 7-18 Same as: l 13:00: Combivent [place] 00 Respimat WASTE: Aerosol - Return to Pharmacy albuterol-i 2022-0 No Notes: Heath bobo pratropium 7-18 Same as: l 13:00: Combivent [place] 00 Respimat WASTE: Aerosol - Return to Pharmacy albuterol-i 2021-0 No Notes: Heath bobo pratropium 7-18 Same as: l 13:00: Combivent [place] 00 Respimat WASTE: Aerosol - Return to Pharmacy heparin 2021-0 No 5,000 [facility] 7-18 unit, l 05:00: Route: [place] 00 SUB-Q, Q8H, Dosing Weight 95.455, kg, Start date: 12/15/21 0:00:00 CDT, Stop date: 01/13/22 16:00:00 CDT heparin 2021-0 No 5,000 [facility] 7-18 unit, l 05:00: Route: [place] 00 SUB-Q, Q8H, Dosing Weight 95.455, kg, [...] 5,000 [facility] 7-18 unit, l 05:00: Route: [place] 00 SUB-Q, Q8H, Dosing Weight 95.455, kg, Start date: 12/15/21 0:00:00 CDT, Stop date: 01/13/22 16:00:00 CDT heparin 2022-0 No 5,000 [facility] 7-18 unit, l 05:00: Route: [place] 00 SUB-Q, Q8H, Dosing Weight 95.455, kg, [...] Notes: [facility] 7-18 porcine l 02:00: heparin [place] 00 heparin 2022-0 No Notes: [facility] 7-18 porcine l 02:00: heparin [place] 00 heparin 2022-0 No Notes: [facility] 7-18 porcine l 02:00: heparin [place] 00 heparin 2022-0 No Notes: [facility] 7-18 porcine l 02:00: heparin [place] 00 heparin 2022-0 No Notes: [facility] 7-18 porcine l 02:00: heparin [place] 00 heparin 2022-0 No Notes: [facility] 7-18 porcine l 02:00: heparin [place] 00 heparin 2022-0 No Notes: [facility] 7-18 porcine l 02:00: heparin [place] 00 heparin 2022-0 No Notes: [facility] 7-18 porcine l 02:00: heparin [place] heparin No Notes: [facility] 7-18 porcine l 02:00: heparin [place] albuterol-i No Notes: Heath bobo pratropium 7-18 [...] IV 250 00 IV) mL cefepime + 2022-0 No Notes: [facility]or ia Sodium 7-18 (Same [...] Rate: 999 l Water IV 23:57: ml/hr, [place] 00 Infuse over: 0.1 hr, Route: IV, Total Volume: 125, Start date: 12/14/21 18:57:00 CDT, Duration: 30 day, Stop date: 01/13/22 18:56:00 CDT, PRN Blood Glucose Results, 0 Dextrose No 125 mL, Memori a 10% in 12-14 Rate: 999 l Water IV 23:57: ml/hr, [place] 00 Infuse over: 0.1 hr, Route: IV, [...] Rate: 999 l Water IV 23:57: ml/hr, [place] 00 Infuse over: 0.1 hr, Route: IV, [...] Rate: 999 l Water IV 23:57: ml/hr, [place] 00 Infuse over: 0.1 hr, Route: IV, [...] Rate: 999 l Water IV 23:53: ml/hr, [place] 00 Infuse over: 0.3 hr, Route: IV, Total Volume: 250, Start date: 12/14/21 18:53:00 CDT, Duration: 30 day, Stop date: 01/13/22 18:52:00 CDT, PRN Blood Glucose Results, 0 Dextrose 2022-0 No 250 mL, Memori a 10% in 12-14 Rate: 999 l Water IV 23:53: ml/hr, [place] 00 Infuse over: 0.3 hr, Route: IV, Total Volume: 250, Start date: 12/14/21 18:53:00 CDT, Duration: 30 day, Stop date: 01/13/22 18:52:00 CDT, PRN Blood Glucose Results, 0 Dextrose 2022-0 No 250 mL, Memori a 10% in 12-14 Rate: 999 l Water IV 23:53: ml/hr, [place] 00 Infuse over: 0.3 hr, Route: IV, Total Volume: 250, Start date: 12/14/21 18:53:00 CDT, Duration: 30 day, Stop date: 01/13/22 18:52:00 CDT, PRN Blood Glucose Results, 0 Dextrose 2022-0 No 250 mL, Memori a 10% in 12-14 Rate: 999 l Water IV 23:53: ml/hr, [place] 00 Infuse over: 0.3 hr, Route: IV, Total Volume: 250, Start date: 12/14/21 18:53:00 CDT, Duration: 30 day, Stop date: 01/13/22 18:52:00 CDT, PRN Blood Glucose Results, 0 Dextrose 2022-0 No 250 mL, Memori a 10% in 12-14 Rate: 999 l Water IV 23:53: ml/hr, [place] 00 Infuse over: 0.3 hr, Route: IV, [...] Rate: 999 l Water IV 23:53: ml/hr, [place] 00 Infuse over: 0.3 hr, Route: IV, [...] Pharmacy 12-14 Vancomycin l Dosing 23:36: Pharmacy [place] Consult 47 Dosing Protocol PHARMAC Y USE [...] Pharmacy 12-14 Vancomycin l Dosing 23:36: Pharmacy [place] Consult 47 Dosing Protocol PHARMAC Y USE ONLY Note: This is not a medication order. This is a consultati on order. Vancomycin No Notes: [facility] 12-14 Vancomycin l Dosing 23:36: Pharmacy [place] Consult 47 Dosing Protocol PHARMAC Y USE ONLY Note: This is not a medication order. This is a consultati on order. Vancomycin No Notes: [facility] 12-14 Vancomycin l Dosing 23:36: Pharmacy [place] Consult 47 Dosing Protocol PHARMAC Y USE ONLY Note: This is not a medication order. This is a consultati on order. [facility]com[facility] l Dosing 23:36: Pharmacy [place] Consult 47 Dosing Protocol PHARMAC Y USE ONLY Note: This is not a medication order. This is a consultati on order. Vancomycin No Notes: [facility] 12-14 Vancomycin l Dosing 23:36: Pharmacy [place] Consult 47 Dosing Protocol PHARMAC Y USE ONLY Note: This is not a medication order. This is a consultati on order. [facility] Vancom[facility] l Dosing 23:36: Pharmacy [place] Consult 47 Dosing Protocol PHARMAC Y USE ONLY Note: This is not a medication order. This is a consultati on order. simethicone No Notes: Heath bobo 12-14 (Same as: l 23:30: Mylicon) [place] 00 ondansetron No Notes: Heath bobo 12-14 (Same as: l 23:30: Zofran) [place] MEDICATION WASTE Product Size: 4 mg Product Wasted: ___ mg dextrometho No Notes: Heath bobo gigi-richaraiF 7-17 (dextromet l ENesin 10 23:30: horphan-gu [...] 1.4% 7-17 Chlorasept l spray 23:30: ic [place] (Same as: Chlorasept ic, Sore Throat [place]) WASTE: F/P - Black; E - Municipal [...] 7-17 (Same as: l tablet 23:30: Pepcid) [place] 5/325 No Notes: Heath bobo oral tablet 7-17 (Same as: l 23:30: [place] 00 325/5) Do not exceed 4gm/day [...] 1.4% 7-17 Chlorasept l spray 23:30: ic [place] (Same as: Chlorasept ic, Sore Throat [place]) WASTE: F/P - Black; E - Municipal [...] 7-17 (Same as: l tablet 23:30: Pepcid) [place] 5/325 No Notes: Heath bobo oral tablet 7-17 (Same as: l 23:30: [place] 325/5) Do not exceed 4gm/day of acetaminop [...] 1.4% 7-17 Chlorasept l spray 23:30: ic [place] (Same as: Chlorasept ic, Sore Throat [place]) WASTE: F/P - Black; E - Municipal [...] 7-17 (Same as: l tablet 23:30: Pepcid) [place] 5/325 No Notes: Heath bobo oral tablet 7-17 (Same as: l 23:30: [place] 00 325/5) Do not exceed 4gm/day of [...] 1.4% 7-17 Chlorasept l spray 23:30: ic [place] (Same as: Chlorasept ic, Sore Throat [place]) WASTE: F/P - Black; E - Municipal [...] 7-17 (Same as: l tablet 23:30: Pepcid) [place] 5/325 No Notes: Heaht bobo oral tablet 7-17 (Same as: l 23:30: [place] 325/5) Do not exceed 4gm/day of acetaminop [...] 7-17 not exceed l 23:30: 4 gm/day. [place] 00 (Same as: Tylenol) albuterol-i No Notes: Heath bobo pratropium 7-17 (Same as: l 2.5-0.5 mg 23:30: Duoneb) silas inhalation solution Chlorasepti No Notes: Heath bobo c 1.4% 7-17 Chlorasept l spray 23:30: ic [place] (Same as: Chlorasept ic, Sore Throat [place]) WASTE: F/P - Black; E - Municipal [...] 7-17 (Same as: l tablet 23:30: Pepcid) [place] 5/325 No Notes: Heath bobo oral tablet 7-17 (Same as: l 23:30: [place] 325/5) Do not exceed 4gm/day of acetaminop [...] 1.4% 7-17 Chlorasept l spray 23:30: ic [place] (Same as: Chlorasept ic, Sore Throat [place]) WASTE: F/P - Black; E - Municipal [...] 7-17 (Same as: l tablet 23:30: Pepcid) [place] 5/325 No Notes: Heath bobo oral tablet 7-17 (Same as: l 23:30: [place] 325/5) Do not exceed 4gm/day of acetaminop [...] 1.4% 7-17 Chlorasept l spray 23:30: ic [place] (Same as: Chlorasept ic, Sore Throat [place]) WASTE: F/P - Black; E - Municipal [...] 7-17 (Same as: l tablet 23:30: Pepcid) [place] 5/325 No Notes: Heath bobo oral tablet 7-17 (Same as: l 23:30: [place] 325/5) Do not exceed 4gm/day of acetaminop [...] 1.4% 7-17 Chlorasept l spray 23:30: ic [place] (Same as: Chlorasept ic, Sore Throat [place]) WASTE: F/P - Black; E - Municipal [...] 1.4% 7-17 Chlorasept l spray 23:30: ic [place] (Same as: Chlorasept ic, Sore Throat [place]) WASTE: F/P - Black; E - Municipal [...] 7-17 (Same as: l tablet 23:30: Pepcid) [place] 5/325 No Notes: Heath bobo oral tablet 7-17 (Same as: l 23:30: [place] 00 325/5) Do not exceed 4gm/day of acetaminop hen. morphine No 1 mg, 0.5 Heath boob Sulfate 7-17 mL, Route: l 23:30: IVP, Drug form: SOLN, Q4H, Dosing Weight 95.455, kg, PRN Pain Score 7-10, Start date: 12/14/21 18:30:00 CDT, Duration: 30 day, Stop date: 01/13/22 18:29:00 CDT, 0 [place] 5/325 No Notes: Heath bobo oral tablet 7-17 (Same as: l 23:30: [place] 325/5) Do not exceed 4gm/day of acetaminop [...] 10 ml oral SOLN ud) (Same as: Norisin DM) diphenhydrA No 25 mg, 1 Me [...] 1.4% 7-17 Chlorasept l spray 23:30: ic [place] (Same as: Chlorasept ic, Sore Throat [place]) WASTE: F/P - Black; E - Municipal [...] 7-17 (Same as: l tablet 23:30: Pepcid) [place] 5/325 No Notes: Heath bobo oral tablet 7-17 (Same as: l 23:30: [place] 325/5) Do not exceed 4gm/day of acetaminop hen. morphine No 1 mg, 0.5 Heath bobo Sulfate 7-17 mL, Route: l 23:30: IVP, Drug form: SOLN, Q4H, Dosing Weight 95.455, kg, PRN Pain Score 7-10, Start date: 12/14/21 18:30:00 CDT, Duration: 30 day, Stop date: 01/13/22 18:29:00 CDT, 0 Dextrose No 25 mL, [facility] 50% Syringe 7-17 [...] lispro 7-17 (Same as: l 23:29: Humalog) [place] 00 Roll in palms of hands gently; [...] 7-17 Route: IM, l 23:29: Drug form: [place] 00 PDR/INJ, PRN, Dosing Weight 95.455, kg, [...] Syringe 7-17 Route: l (D50W) 23:29: IVP, [place] 00 Dosing Weight 95.455, kg, PRN, PRN [...] lispro 7-17 (Same as: l 23:29: Humalog) [place] 00 Roll in palms of hands gently; [...] Syringe 7-17 Route: l (D50W) 23:29: IVP, [place] 00 Dosing Weight 95.455, kg, PRN, PRN Blood Glucose Results, Start date: 12/14/21 18:29:00 CDT, Duration: 30 day, Stop date: 01/13/22 18:28:00 CDT glucagon 2022-0 No 1 mg, [facility] 7-17 Route: IM, l 23:29: Drug form: [place] 00 PDR/INJ, PRN, Dosing Weight 95.455, kg, [...] lispro 7-17 (Same as: l 23:29: Humalog) [place] 00 Roll in palms of hands gently; Do not shake vigorously . WASTE: F/P - Black; E - Municipal Trash Bin Stable for 28 days at room temperatur e. Expires in days from ____Date Dextrose 2022-0 No 25 mL, [facility] 50% Syringe 7-17 Route: l (D50W) 23:29: IVP, [place] 00 Dosing Weight 95.455, kg, PRN, PRN [...] Syringe 7-17 Route: l (D50W) 23:29: IVP, [place] 00 Dosing Weight 95.455, kg, PRN, PRN Blood Glucose Results, Start date: 12/14/21 18:29:00 CDT, Duration: 30 day, Stop date: 01/13/22 18:28:00 CDT glucagon 2022-0 No 1 mg, [facility] 7-17 Route: IM, l 23:29: Drug form: [place] 00 PDR/INJ, PRN, Dosing Weight 95.455, kg, PRN Blood Glucose Results, Start date: 12/14/21 18:29:00 CDT, Duration: 30 day, Stop date: 01/13/22 18:28:00 CDT, 0 insulin 2022-0 No Notes: [facility] lispro 7-17 (Same as: l 23:29: Humalog) [place] 00 Roll in palms of hands gently; Do not shake vigorously . WASTE: F/P - Black; E - Municipal Trash Bin Stable for 28 days at room temperatur e. Expires in days from ____Date Dextrose 2022-0 No 25 mL, [facility] 50% Syringe 7-17 Route: l (D50W) 23:29: IVP, [place] 00 Dosing Weight 95.455, kg, PRN, PRN Blood Glucose Results, Start date: 12/14/21 18:29:00 CDT, Duration: 30 day, Stop date: 01/13/22 18:28:00 CDT glucagon 2-0 No 1 mg, [facility] 7-17 Route: IM, l 23:29: Drug form: [place] 00 PDR/INJ, PRN, Dosing Weight 95.455, kg, [...] [facility] sulfate 7-17 (Zinc l 23:28: sulfate [place] 00 capsule) - 220 mg Zinc sulfate = 50 mg elemental zinc Same as Zinc Sulfate ascorbic No Notes: [facility] acid 7-17 (Same as: l 23:28: Vitamin C) [place] No Notes: [facility] Perles 7-17 (Same As: l 23:28: Tessalon [place] 00 Perles) "Do Not Crush" zinc No Notes: [facility] sulfate 7-17 (Zinc l 23:28: sulfate [place] capsule) - 220 mg Zinc sulfate = [...] [facility] sulfate 7-17 (Zinc l 23:28: sulfate [place] 00 capsule) - 220 mg Zinc sulfate = 50 mg elemental zinc Same as Zinc Sulfate ascorbic No Notes: [facility] acid 7-17 (Same as: l 23:28: Vitamin C) No Notes: [facility] Perles 7-17 (Same As: l 23:28: Tessalon [place] 00 Perles) "Do Not Crush" zinc No Notes: [facility] sulfate 7-17 (Zinc l 23:28: sulfate [place] 00 capsule) - 220 mg Zinc sulfate [...] 7-17 (Same as: l 23:28: Vitamin C) [place] 00 Tessalon No Notes: [facility] Perles 7-17 (Same [...] [facility] 7-17 Take with l 22:40: food. 00 Rocephin + No Notes: [facility] ia [...] 0.9% IV 250 00 IV) mL Dextrose 0 No 250 mL, Memori a 10% in [...] Rate: 999 l Water IV 21:08: ml/hr, [place] 00 Infuse over: 0.3 hr, Route: IV, Total Volume: 250, Start date: 12/14/21 16:08:00 CDT, Stop date: 12/14/21 16:08:00 CDT, 0 Dextrose 2022-0 No 250 mL, [facility] a 10% in 12-14 Rate: 999 l Water IV 21:08: ml/hr, [place] 00 Infuse over: 0.3 hr, Route: IV, Total Volume: 250, Start date: 12/14/21 16:08:00 CDT, Stop date: 12/14/21 16:08:00 CDT, 0 Dextrose 2022-0 No 250 mL, Mem[facility] a 10% in 12-14 Rate: 999 l Water IV 21:08: ml/hr, [place] 00 Infuse over: 0.3 hr, Route: IV, Total Volume: 250, Start date: 12/14/21 16:08:00 CDT, Stop date: 12/14/21 16:08:00 CDT, 0 Dextrose 2022-0 No 250 mL, Mem[facility] a 10% in 12-14 Rate: 999 l Water IV 21:08: ml/hr, [place] 00 Infuse over: 0.3 hr, Route: IV, [...] Rate: 999 l Water IV 21:08: ml/hr, [place] 00 Infuse over: 0.3 hr, Route: IV, Total Volume: 250, Start date: 12/14/21 16:08:00 CDT, Stop date: 12/14/21 16:08:00 CDT, 0 Dextrose 2022-0 No 250 mL, [facility] a 10% in 12-14 Rate: 999 l Water IV 21:08: ml/hr, [place] 00 Infuse over: 0.3 hr, Route: IV, Total Volume: 250, Start date: 12/14/21 16:08:00 CDT, Stop date: 12/14/21 16:08:00 CDT, 0 Dextrose 2-0 No 250 mL, [facility] a 10% in 12-14 Rate: 999 l Water IV 21:08: ml/hr, [place] Infuse over: 0.3 hr, Route: IV, Total Volume: 250, Start date: 12/14/21 16:08:00 CDT, Stop date: 12/14/21 16:08:00 CDT, 0 d50 syringe 2-0 No 25 mL, Heath bobo 7 Route: l 20:41: IVP, [place] Dosing Weight 95.455, kg, ONCE, STAT, Start date: 12/14/21 15:41:00 CDT, Stop date: 12/14/21 15:41:00 CDT, 25 ml = 12.5 gm d50 syringe 2021-0 No 25 mL, Heath bobo 7 Route: [...] Heath bobo 7-17 Route: l 20:41: IVP, [place] Dosing Weight 95.455, kg, ONCE, STAT, Start [...] Heath bobo 7-17 Route: l 20:41: IVP, [place] 00 Dosing Weight 95.455, kg, ONCE, STAT, Start date: 12/14/21 15:41:00 CDT, Stop date: 12/14/21 15:41:00 CDT, 25 ml = 12.5 gm d50 syringe 2-0 No 25 mL, Heath bobo 7- Route: l 20:41: IVP, [place] 00 Dosing Weight 95.455, kg, ONCE, STAT, Start date: 12/14/21 15:41:00 CDT, Stop date: 12/14/21 15:41:00 CDT, 25 ml = 12.5 gm d50 syringe 2-0 No 25 mL, Heath bobo 7- Route: l 20:41: IVP, [place] 00 Dosing Weight 95.455, kg, ONCE, STAT, [...] Rate: To l 0.9% 01:29: prime line [place] (titrate) 00 and flush 250 mL remaining blood products., Dosing Weight 88.636, kg, Route: IV, Total Volume: 250, Start Date: 12/03/21 20:29:00 CDT, Duration: 1 day, Stop date: 12/04/21 20:28:00 CDT, Replace Every: 24 hr, 0 Sodium 2022-0 No 250 mL, [facility] Chloride 7-07 Rate: To l 0.9% 01:29: prime line [place] (titrate) 00 and flush 250 mL remaining blood products., Dosing Weight 88.636, kg, Route: IV, Total Volume: 250, Start Date: 12/03/21 20:29:00 CDT, Duration: 1 day, Stop date: 12/04/21 20:28:00 CDT, Replace Every: 24 hr, 0 Sodium 2022-0 No 250 mL, [facility] Chloride 7-07 Rate: To l 0.9% 01:29: prime line [place] (titrate) 00 and flush 250 mL remaining [...] Rate: To l 0.9% 01:29: prime line [place] (titrate) 00 and flush 250 mL remaining [...] Rate: To l 0.9% 01:29: prime line [place] (titrate) 00 and flush 250 mL remaining blood products., Dosing Weight 88.636, kg, Route: IV, Total Volume: 250, Start Date: 12/03/21 20:29:00 CDT, Duration: 1 day, Stop date: 12/04/21 20:28:00 CDT, Replace Every: 24 hr, 0 Plavix 75 2022-0 Yes 75 mg = 1 Mem [facility] mg oral 6-28 tab, PO, l tablet 19:37: Daily, # [place] 00 30 tab, 0 Refill(s), other Plavix 75 2022-0 Yes 75 mg = 1 [facility] mg oral 6-28 tab, PO, l tablet 19:37: Daily, # [place] 00 30 tab, 0 Refill(s), other Plavix 75 2022-0 Yes 75 mg = 1 [facility] mg oral 6-28 tab, PO, l tablet 19:37: Daily, # [place] 00 30 tab, 0 Refill(s), other Plavix 75 2022-0 Yes 75 mg = 1 [facility] mg oral 6-28 tab, PO, l tablet 19:37: Daily, # [place] 00 30 tab, 0 Refill(s), other Plavix 75 2022-0 Yes 75 mg = 1 [facility] mg oral 6-28 tab, PO, l tablet 19:37: Daily, # [place] 00 30 tab, 0 Refill(s), other Plavix 75 2022-0 Yes 75 mg = 1 [facility] mg oral 6-28 tab, PO, l tablet 19:37: Daily, # [place] 00 30 tab, 0 Refill(s), other Plavix 75 2022-0 Yes 75 mg = 1 [facility] mg oral 6-28 tab, PO, l tablet 19:37: Daily, # [place] 00 30 tab, 0 Refill(s), other Plavix 75 2022-0 Yes 75 mg = 1 [facility] mg oral 6-28 tab, PO, l tablet 19:37: Daily, # [place] 00 30 tab, 0 Refill(s), other Plavix 75 2022-0 Yes 75 mg = 1 [facility] mg oral 6-28 tab, PO, l tablet 19:37: Daily, # [place] 00 30 tab, 0 Refill(s), other Plavix 75 2022-0 Yes 75 mg = 1 [facility] mg oral 6-28 tab, PO, l tablet 19:37: Daily, # [place] 00 30 tab, 0 Refill(s), other Protonix 2021-0 No Notes: For Mem [facility] 6-28 IV push l 14:00: reconstitu [place] 00 te with 10 ml 0.9% sodium chloride and push over 2 minutes. (Same as: Protonix) atorvastati No Notes: Heath bobo n 6-28 (Same as: l 14:00: Lipitor) [place] citalopram No Notes: [facility] 6-28 (Same As: l 14:00: CeleXA) [place] Protonix No Notes: For Mem oria 6-28 [...] n 6-28 (Same as: l 14:00: Lipitor) [place] 00 citalopram No Notes: [facility] 6-28 (Same As: l 14:00: CeleXA) [place] Protonix No Notes: For Mem o[facility] 6-28 IV push l 14:00: reconstitu [place] 00 te with 10 ml 0.9% sodium chloride and push over 2 minutes. (Same as: Protonix) atorvastati No Notes: Heath bobo n 6-28 (Same as: l 14:00: Lipitor) [place] citalopram No Notes: [facility] 6-28 (Same As: l 14:00: CeleXA) [place] 00 Protonix No Notes: For Mem oria [...] ia 6-28 (Same As: l 14:00: CeleXA) [place] Protonix No Notes: For Mem oria 6-28 IV push l 14:00: reconstitu [place] 00 te with 10 ml 0.9% sodium chloride and push over 2 minutes. (Same as: Protonix) atorvastati No Notes: Heath bobo n 6-28 (Same as: l 14:00: Lipitor) [place] citalopram No Notes: Memor ia 6-28 (Same [...] oria 6-28 IV push l 14:00: reconstitu [place] 00 te with 10 ml 0.9% sodium chloride and push over 2 minutes. (Same as: Protonix) atorvastati No Notes: [place] bobo n 6-28 (Same as: l 14:00: Lipitor) [place] 00 citalopram No Notes: Memor ia 6-28 [...] CeleXA) dexamethaso No Notes: Heath bobo ne 6-28 Concentrat l 06:42: ion: [place] 00 4mg/ml dexamethaso No Notes: Heath bobo ne 6-28 Concentrat l 06:42: ion: [place] 00 4mg/ml dexamethaso 2021-0 No Notes: Heath bobo ne 6-28 Concentrat l 06:42: ion: [place] 00 4mg/ml dexamethaso 0 No Notes: Heath bobo ne 6-28 Concentrat l 06:42: ion: [place] 00 4mg/ml dexamethaso 2021-0 No Notes: Heath bobo ne 6-28 Concentrat l 06:42: ion: [place] 00 4mg/ml dexamethaso 2021-0 No Notes: Heath bobo ne 6-28 Concentrat l 06:42: ion: [place] 00 4mg/ml dexamethaso 2021-0 No Notes: Heath bobo ne 6-28 Concentrat l 06:42: ion: [place] 00 4mg/ml dexamethaso 2021-0 No Notes: Heath bobo ne 6-28 Concentrat l 06:42: ion: [place] 00 4mg/ml dexamethaso 2021-0 No Notes: Heath bobo ne 6-28 Concentrat l 06:42: ion: [place] 00 4mg/ml dexamethaso 2021-0 No Notes: Heath bobo ne 6-28 Concentrat l 06:42: ion: [place] 00 4mg/ml D10W 2022-0 No 125 mL, Memoria (bolus) IV - [...] D12021-0 No 125 mL, Memoria (bolus) IV 11-25 Rate: 999 l 06:31: ml/hr, [place] 00 Infuse over: 0.1 hr, Route: IVPB, Total Volume: 125, Start date: 11/25/21 1:31:00 CDT, Duration: 30 day, Stop date: 12/25/21 1:30:00 CDT, PRN Blood Glucose Results, 0 D12021-0 No 125 mL, Memoria (bolus) IV 11-25 [...] IV 6- Rate: 999 l 06:31: ml/hr, [place] 00 Infuse over: 0.1 hr, Route: IVPB, Total Volume: 125, Start date: 11/25/21 1:31:00 CDT, Duration: 30 day, Stop date: 12/25/21 1:30:00 CDT, PRN Blood Glucose Results, 0 D10W 2021-0 No 125 mL, Memoria (bolus) IV 6- Rate: 999 l 06:31: ml/hr, [place] 00 Infuse over: 0.1 hr, Route: IVPB, Total Volume: 125, Start date: 11/25/21 1:31:00 CDT, Duration: 30 day, Stop date: 12/25/21 1:30:00 CDT, PRN Blood Glucose Results, 0 D10W 2021-0 No 125 mL, Memoria (bolus) IV - Rate: 999 l 06:31: ml/hr, [place] 00 Infuse over: 0.1 hr, Route: IVPB, [...] IV 6- Rate: 999 l 06:31: ml/hr, [place] 00 Infuse over: 0.1 hr, Route: IVPB, [...] IV 6- Rate: 999 l 06:23: ml/hr, [place] 00 Infuse over: 0.3 hr, Route: IVPB, [...] IV 6-28 Rate: 999 l 06:23: ml/hr, [place] 00 Infuse over: 0.3 hr, Route: IVPB, [...] IV 11-25 Rate: 999 l 06:23: ml/hr, [place] 00 Infuse over: 0.3 hr, Route: IVPB, Total Volume: 250, Start date: 11/25/21 1:23:00 CDT, Duration: 30 day, Stop date: 12/25/21 1:22:00 CDT, PRN Blood Glucose Results, 0 D1W 2021-0 No 250 mL, Memoria (bolus) IV 11-25 Rate: 999 l 06:23: ml/hr, [place] Infuse over: 0.3 hr, Route: IVPB, Total Volume: 250, Start date: 11/25/21 1:23:00 CDT, Duration: 30 day, Stop date: 12/25/21 1:22:00 CDT, PRN Blood Glucose Results, 0 Dextrose 2021-0 No 25 mL, Memoria 50% Syringe 11-25 Route: l (D50W) 05:55: IVP, [place] 00 Dosing Weight 94.545, kg, PRN, PRN Blood Glucose Results, Start date: 11/25/21 0:55:00 CDT, Duration: 30 day, Stop date: 12/25/21 0:54:00 CDT glucagon 2021-0 No 1 mg, [facility]oria 11-25 Route: IM, l 05:55: Drug form: [place] 00 PDR/INJ, PRN, Dosing Weight 94.545, kg, [...] lispro - (Same as: l 05:55: Humalog) [place] 00 Roll in palms of hands gently; [...] 11-25 Route: IM, l 05:55: Drug form: [place] 00 PDR/INJ, PRN, Dosing Weight 94.545, kg, [...] 11-25 Route: l (D50W) 05:55: IVP, [place] Dosing Weight 94.545, kg, PRN, PRN Blood Glucose Results, Start date: 11/25/21 0:55:00 CDT, Duration: 30 day, Stop date: 12/25/21 0:54:00 CDT glucagon 2021-0 No 1 mg, [facility] 11-25 Route: IM, l 05:55: Drug form: [place] PDR/INJ, PRN, Dosing Weight 94.545, kg, PRN [...] Syringe 11-25 Route: l (D50W) 05:55: IVP, [place] 00 Dosing Weight 94.545, kg, PRN, PRN Blood Glucose Results, Start date: 11/25/21 0:55:00 CDT, Duration: 30 day, Stop date: 12/25/21 0:54:00 CDT glucagon 2021-0 No 1 mg, [facility] 11-25 Route: IM, l 05:55: Drug form: [place] 00 PDR/INJ, PRN, Dosing Weight 94.545, kg, PRN Blood Glucose Results, Start date: 11/25/21 0:55:00 CDT, Duration: 30 day, Stop date: 12/25/21 0:54:00 CDT, 0 insulin 2021-0 No Notes: [facility]oria lispro -28 (Same as: l 05:55: Humalog) [place] 00 Roll in palms of hands gently; [...] 11-25 Route: IM, l 05:55: Drug form: [place] 00 PDR/INJ, PRN, Dosing Weight 94.545, kg, PRN Blood Glucose Results, Start date: 11/25/21 0:55:00 CDT, Duration: 30 day, Stop date: 12/25/21 0:54:00 CDT, 0 insulin 202-0 No Notes: [facility]oria lispro 6-28 (Same as: l 05:55: Humalog) [place] 00 Roll in palms of hands gently; [...] lispro -28 (Same as: l 05:55: Humalog) [place] 00 Roll in palms of hands gently; Do not shake vigorously . WASTE: F/P - Black; E - Municipal Trash Bin Stable for 28 days at room temperatur e. Expires in days from ____Date Dextrose 2021-0 No 25 mL, [facility] 50% Syringe 11-25 Route: l (D50W) 05:55: IVP, [place] 00 Dosing Weight 94.545, kg, PRN, PRN [...] days from ____Date Zofran No Notes: [facility]oria - (Same as: l 05:54: Zofran) MEDICATION WASTE [...] 8.6 No Notes: Memori a mg oral - (Same as: l tablet 05:54: Senokot) [place] 50 No Notes: Memori a mg oral -28 (Same as: l capsule 05:54: Colace) Zofran No Notes: Memoria 6-28 (Same as: l 05:54: Zofran) MEDICATION WASTE Product Size: 4 mg Product Wasted: ___ mg Tylenol No Notes: Do Memor ia - not exceed l 05:54: 4 gm/day. [place] 00 (Same as: Tylenol) [place] No Notes: [facility]oria Perles 6-28 (Same As: l 05:54: Tessalon Perles) "Do Not Crush" simethicone No Notes: Heath bobo 6-28 (Same as: l 05:54: Mylicon) [place] 00 senna 8.6 No Notes: Memori a mg oral 6-28 (Same as: l tablet 05:54: Senokot) [place] 00 Colace 50 No Notes: Memori a [...] Memoria 6-28 (Same as: l 05:54: Zofran) [place] 00 MEDICATION WASTE Product Size: 4 mg Product Wasted: ___ mg Tylenol No Notes: Do Memor ia 6-28 not exceed l 05:54: 4 gm/day. [place] 00 (Same as: Tylenol) sal2021 No Notes: [...] 6-28 (Same as: l capsule 05:54: Colace) [place] 00 Zofran No Notes: Memoria 6-28 (Same [...] 6-28 (Same as: l tablet 05:54: Senokot) [place] 00 Colace 50 No Notes: Memori a mg oral 6-28 (Same as: l capsule 05:54: Colace) [place] 00 Zofran No Notes: [facility]oria 6-28 (Same as: l 05:54: Zofran) [place] 00 MEDICATION WASTE Product Size: 4 mg Product Wasted: ___ mg Tylenol No Notes: Do Memor ia 6-28 not exceed l 05:54: 4 gm/day. [place] 00 (Same as: Tylenol) Tessalon No Notes: Memoria Perles 6-28 (Same As: l 05:54: Tessalon [place] Perles) "Do Not Crush" simethicone No Notes: [...] 6-28 not exceed l 05:54: 4 gm/day. [place] 00 (Same as: Tylenol) No Notes: Memoria [...] Perles 6-28 (Same As: l 05:54: Tessalon [place] 00 Perles) "Do Not Crush" simethicone No [...] 6-28 not exceed l 05:54: 4 gm/day. [place] 00 (Same as: Tylenol) Tessalon No Notes: Memoria Perles 6-28 (Same As: l 05:54: Tessalon [place] 00 Perles) "Do Not Crush" simethicone No [...] 6-28 not exceed l 05:54: 4 gm/day. [place] 00 (Same as: Tylenol) [place] No Notes: Memoria Perles 6-28 (Same As: l 05:54: Tessalon [place] Perles) "Do Not Crush" simethicone No Notes: Heath bobo 6-28 (Same as: l 05:54: Mylicon) [place] 8.6 No Notes: Memori a mg oral 6-28 (Same as: l tablet 05:54: Senokot) [place] 00 Colace 50 0 No Notes: Memori [...] KwikPen 100 6-28 [facility]ill(s) [facility] Dialy[facility]ite 0 Yes 0 Memoria [...] l oral tablet 05:53: Thomas n Basaglar 0 Yes 0 Memoria KwikPen 100 [...] oral 6-28 Refill(s) l capsule 05:53: clopidogrel 2-0 No 0 Memori a 75 mg oral 6-28 Refill(s) l tablet 05:53: atorvastati 2021-0 Yes 0 Memori a n 40 mg 6-28 Refill(s) l oral tablet 05:53: Basaglar 2021-0 Yes 0 [facility] KwikPen 100 6-28 Refill(s) l units/mL 05:53: ne 00 s solution Dialyvite 2021-0 Yes 0 [...] Product Wasted: ___ mg cefTRIAXone No Notes: Haeth bobo + Sodium 6-28 (Same As: l Chloride 05:27: Rocephin). Her clayton 0.9% IV 50 00 Use with mL 100 mL NS and infuse over 30 min MEDICATION WASTE Product Size: 1000 mg Product Wasted: ___ mg cefTRIAXone 202-0 No Notes: Heath bobo + Sodium 6-28 (Same As: l Chloride 05:27: Rocephin). Her [place] 0.9% IV 50 00 Use with mL 100 mL NS and infuse over 30 min MEDICATION WASTE Product Size: 1000 mg Product Wasted: ___ mg cefTRIAXone 202-0 No Notes: Heath bobo + Sodium 6-28 [...] oria 6-28 IV push l 03:37: reconstitu [place] 00 te with 10 ml 0.9% sodium [...] oria 6-28 IV push l 03:37: reconstitu [place] 00 te with 10 ml 0.9% sodium chloride and push over 2 minutes. (Same as: Protonix) Protonix No Notes: For Mem oria 6-28 IV push l 03:37: reconstitu [place] 00 te with 10 ml 0.9% sodium chloride and push over 2 minutes. (Same as: Protonix) Protonix No Notes: For Mem oria 6-28 IV push l 03:37: reconstitu [place] 00 te with 10 ml 0.9% sodium chloride and push over 2 minutes. (Same as: Protonix) Protonix No Notes: For Mem oria 6-28 IV push l 03:37: reconstitu [place] 00 te with 10 ml 0.9% sodium chloride and push over 2 minutes. (Same as: Protonix) Protonix No Notes: For Mem oria 6-28 IV push l 03:37: reconstitu [place] 00 te with 10 ml 0.9% sodium chloride and push over 2 minutes. (Same as: Protonix) Protonix No Notes: For Mem oria 6-28 IV push l 03:37: reconstitu [place] 00 te with 10 ml 0.9% sodium chloride and push over 2 minutes. (Same as: Protonix) Advair HFA Advair HFA 2019-0 Yes [place] 2 puffs Common 1-15 [facility] 00:00: - [facility] 00 [facility] 2018- Yes [place] 1 needle Common Ultra-Fine Ultra-Fine 0-09 [facility] with Sp jerome Christina Pen Christina Pen 00:00: Basaglar - [facility] [place] 00 [facility] 2018- No QD BD Ultra-Fine Ultra-Fine 0-09 Ultra-Fine Christina Pen Christina Pen 00:00: Christina Pen [place] 4mm [place] 4mm 00 [place] x 32Gm x 32Gm 4mm x 32Gm [facility] 2018- No QD BD Ultra-Fine Ultra-Fine 0-09 Ultra-Fine Christina Pen Christina Pen 00:00: Christina Pen [place] 4mm [place] 4mm 00 [place] x 32Gm x 32Gm 4mm x 32Gm [facility] 2018- No QD BD Ultra-Fine Ultra-Fine 0-09 Ultra-Fine Christina Pen Christina Pen 00:00: Christina Pen [place] 4mm [place] 4mm 00 [place] x 32Gm x 32Gm 4mm x 32Gm [facility] 2018- No QD BD Ultra-Fine Ultra-Fine 0-09 Ultra-Fine Christina Pen Christina Pen 00:00: Christina Pen [place] 4mm [place] 4mm 00 [place] x 32Gm x 32Gm 4mm x 32Gm [facility] 2018-05 No QD BD Ultra-Fine Ultra-Fine 0-09 Ultra-Fine Christina Pen Christina Pen 00:00: Christina Pen [place] 4mm [place] 4mm 00 [place] x 32Gm x 32Gm 4mm x 32Gm [facility] 2018- No QD BD Ultra-Fine Ultra-Fine 0-09 Ultra-Fine Christina Pen Christina Pen 00:00: Christina Pen [place] 4mm [place] 4mm 00 [place] x 32Gm x 32Gm 4mm x 32Gm [facility] 2018- No QD BD Ultra-Fine Ultra-Fine 0-09 Ultra-Fine Christina Pen Christina Pen 00:00: Christina Pen [place] 4mm [place] 4mm 00 [place] x 32Gm x 32Gm 4mm x 32Gm [facility] 2018- No QD BD Ultra-Fine Ultra-Fine 0-09 Ultra-Fine Christina Pen Christina Pen 00:00: Christina Pen [place] 4mm [place] 4mm 00 [place] x 32Gm x 32Gm 4mm x 32Gm [facility] 2018- No QD BD Ultra-Fine Ultra-Fine 0-09 Ultra-Fine Christina Pen Christina Pen 00:00: Christina Pen [place] 4mm [place] 4mm 00 [place] x 32Gm x 32Gm 4mm x 32Gm [facility] 2018-05 No QD BD Ultra-Fine Ultra-Fine 0-09 Ultra-Fine Christina Pen Christina Pen 00:00: Christina Pen [place] 4mm [place] 4mm 00 [place] x 32Gm x 32Gm 4mm x 32Gm [facility] 2018- No QD BD Ultra-Fine Ultra-Fine 0-09 Ultra-Fine Christina Pen Christina Pen 00:00: Christina Pen [place] 4mm [place] 4mm 00 [place] x 32Gm x 32Gm 4mm x 32Gm [facility] 2018- No QD BD Ultra-Fine Ultra-Fine 0-09 Ultra-Fine Christina Pen Christina Pen 00:00: Christina Pen [place] 4mm [place] 4mm 00 [place] x 32Gm x 32Gm 4mm x 32Gm [facility] 2018- No QD BD Ultra-Fine Ultra-Fine 0-09 Ultra-Fine Christina Pen Christina Pen 00:00: Christina Pen [place] 4mm [place] 4mm 00 [place] x 32Gm x 32Gm 4mm x 32Gm [facility] 2018-05 No QD BD Ultra-Fine Ultra-Fine 0-09 Ultra-Fine Christina Pen Christina Pen 00:00: Christina Pen [place] 4mm [place] 4mm 00 [place] x 32Gm x 32Gm 4mm x 32Gm [facility] 2018-05 No QD BD Ultra-Fine Ultra-Fine 0-09 Ultra-Fine Christina Pen Christina Pen 00:00: Christina Pen [place] 4mm [place] 4mm 00 [place] x 32Gm x 32Gm 4mm x 32Gm [facility] 2018-05 No QD BD Ultra-Fine Ultra-Fine 0-09 Ultra-Fine Christina Pen Christina Pen 00:00: Christina Pen [place] 4mm [place] 4mm 00 [place] x 32Gm x 32Gm 4mm x 32Gm [facility] 2018-05 No QD BD Ultra-Fine Ultra-Fine 0-09 Ultra-Fine Christina Pen Christina Pen 00:00: Christina Pen [place] 4mm [place] 4mm 00 [place] x 32Gm x 32Gm 4mm x 32Gm [facility] 2018- No QD BD Ultra-Fine Ultra-Fine 0-09 Ultra-Fine Christina Pen Christina Pen 00:00: Christina Pen [place] 4mm [place] 4mm 00 [place] x 32Gm x 32Gm 4mm x 32Gm [facility] 2018- No QD BD Ultra-Fine Ultra-Fine 0-09 Ultra-Fine Christina Pen Christina Pen 00:00: Christina Pen [place] 4mm [place] 4mm 00 [place] x 32Gm x 32Gm 4mm x 32Gm [facility] 2018- No QD BD Ultra-Fine Ultra-Fine 0-09 Ultra-Fine Christina Pen Christina Pen 00:00: Christina Pen [place] 4mm [place] 4mm 00 [place] x 32Gm x 32Gm 4mm x 32Gm BD BD 2018-05 No QD BD Ultra-Fine Ultra-Fine 0-09 Ultra-Fine Christina Pen Christina Pen 00:00: Christina Pen [place] 4mm [place] 4mm 00 [place] x 32Gm x 32Gm 4mm x 32Gm BD BD 2018-05 No QD BD Ultra-Fine Ultra-Fine 0-09 Ultra-Fine Christina Pen Christina Pen 00:00: Christina Pen [place] 4mm [place] 4mm 00 [place] x 32Gm x 32Gm 4mm x 32Gm [...] HFA No 2{puffs BID Advair HFA 230 230 } 230-21 MCG/ACT MCG/ACT MCG/ACT Citalopram [...] tablet C ommon 750 750 [facility] Basaglar Basaglar Yes [place] 52 Units C ommon KwikPen KwikPen [facility] PreserVisio PreserVisio Yes La as Common n AREDS n AREDS [facility] directed Spir it [facility] Citalopram Citalopram Yes La 1 tablet Common Hydrobromid Hydrobromid [facility] Stool Stool Yes La not Common Softener Softener [facility] defined Spi rit [facility] Gentle Gentle Yes La 1 tablet Commo n Laxative Laxative [facility] as needed S pirit [facility] Atorvastati Atorvastati Yes La 1 tablet Common n Calcium n Calcium [facility] Contour Contour Yes La USE 3 Common Test Test [facility] TIMES A [facility] Eliquis 2.5 Eliquis 2.5 Yes La 1 tablet Common mg mg [facility] Multivitami Multivitami Yes La as Common n Adult n Adult [facility] directed [facility] Carvedilol Carvedilol Yes La TAKE 1 Common [facility] TABLET BY [facility] MOUTH - CHI TWICE A DAY ON [facility] Medical [facility] Center Atorvastati Atorvastati Yes La TAKE 1 Common n Calcium n Calcium [facility] TABLET BY [facility] MOUTH - CHI EVERY DAY [facility] GlipiZIDE GlipiZIDE Yes La 1 tablet Common [facility] Basaglar Basaglar Yes La 50 Units C ommon KwikPen KwikPen [facility] Advair HFA Advair HFA [...] Dexcom G6 Dexcom G6 No Dexcom G6 Die Cutter Operator - Die Cutter Operator - Die Cutter Operator - Carvedilol Carvedilol No Carvedilol 12.5 [...] Dexcom G6 Dexcom G6 No Dexcom G6 Die Cutter Operator - Die Cutter Operator - Die Cutter Operator - glipiZIDE 5 glipiZIDE 5 No [...] Dexcom G6 Dexcom G6 No Dexcom G6 Die Cutter Operator - Die Cutter Operator - Die Cutter Operator - Ipratropium Ipratropium No Ipratropiu -Albuterol [...] Dexcom G6 Dexcom G6 No Dexcom G6 Die Cutter Operator - Die Cutter Operator - Die Cutter Operator - Gentle Gentle No 1{table QD [...] Dexcom G6 Dexcom G6 No Dexcom G6 Die Cutter Operator - Die Cutter Operator - Die Cutter Operator - PreserVisio PreserVisio No PreserVisi n [...] Dexcom G6 Dexcom G6 No Dexcom G6 Die Cutter Operator - Die Cutter Operator - Die Cutter Operator - Advair HFA Advair HFA No [...] Dexcom G6 Dexcom G6 No Dexcom G6 Die Cutter Operator - Die Cutter Operator - Die Cutter Operator - Advair HFA Advair HFA No [...] Dexcom G6 Dexcom G6 No Dexcom G6 Die Cutter Operator - Die Cutter Operator - Die Cutter Operator - Advair HFA Advair HFA No [...] Dexcom G6 Dexcom G6 No Dexcom G6 Die Cutter Operator - Die Cutter Operator - Die Cutter Operator - Atorvastati Atorvastati No 1{table QD [...] Dexcom G6 Dexcom G6 No Dexcom G6 Die Cutter Operator - Die Cutter Operator - Die Cutter Operator - Atorvastati Atorvastati No Atorvastat n [...] Dexcom G6 Dexcom G6 No Dexcom G6 Die Cutter Operator - Die Cutter Operator - Die Cutter Operator - Atorvastati Atorvastati No Atorvastat n [...] FluAD 2021-03-30 Completed [facility] 13:13:00 - [facility] FluAD FluAD 2021-03-30 Completed [facility] 13:13:00 - [facility] FluAD FluAD 2021-03-30 Completed [facility] 13:13:00 - [facility] FluAD FluAD 2021-03-30 Completed [facility] 13:13:00 - [facility] FluAD FluAD 2021-03-30 Completed [facility] 13:13:00 - [facility] FluAD FluAD 2021-03-30 Completed [facility] 13:13:00 - [facility] FluAD FluAD 2021-03-30 Completed [facility] 13:13:00 - [facility] FluAD FluAD 2021-03-30 Completed [facility] 13:13:00 - [facility] FluAD FluAD 2021-03-30 Completed [facility] 13:13:00 - [facility] FluAD FluAD 2021-03-30 Completed [facility] 13:13:00 - [facility] FluAD FluAD 2021-03-30 Completed [facility] 13:13:00 - [facility] FluAD FluAD 2021-03-30 Completed [facility] 13:13:00 - [facility] FluAD FluAD 2021-03-30 Completed [facility] 13:13:00 - [facility] FluAD FluAD 2021-03-30 Completed [facility] 13:13:00 - [facility] FluAD FluAD 2021-03-30 Completed [facility] 13:13:00 - [facility] FluAD FluAD 2021-03-30 Completed [facility] 13:13:00 - [facility] FluAD FluAD 2021-03-30 Completed [facility] 13:13:00 - [facility] FluAD FluAD 2021-03-30 Completed [facility] 13:13:00 - [facility] FluAD FluAD 2021-03-30 Completed [facility] 13:13: - [facility] FluAD FluAD 2021-03-30 Completed [facility] 13:13: [facility] COVID-19 Vaccine COVID-19 Vaccine 2020-08-19 Completed [facility] (Andrea) (Andrea) 09:17:00 - [facility] COVID-19 Vaccine COVID-19 Vaccine 2020-08-19 Completed [facility] (Andrea) (Andrea) 09:17: [facility] COVID-19 Vaccine COVID-19 Vaccine 2020-08-19 Completed [facility] (Andrea) (Andrea) 09:17: [facility] COVID-19 Vaccine COVID-19 Vaccine 2020-08-19 Completed [facility] (Andrea) (Andrea) 09:17:00 [facility] COVID-19 Vaccine COVID-19 Vaccine 2020-08-19 Completed [facility] (Andrea) (Andrea) 09:17:00 [facility] COVID-19 Vaccine COVID-19 Vaccine 2020-08-19 Completed [facility] (Andrea) (Andrea) 09:17:00 [facility] COVID-19 Vaccine COVID-19 Vaccine 2020-08-19 Completed [facility] (Andrea) (Andrea) 09:17:00 [facility] COVID-19 Vaccine COVID-19 Vaccine 2020-08-19 Completed [facility] (Andrea) (Andrea) 09:17:00 [facility] COVID-19 Vaccine COVID-19 Vaccine 2020-08-19 Completed [facility] (Andrea) (Andrea) 09:17:00 [facility] COVID-19 Vaccine COVID-19 Vaccine 2020-08-19 Completed [facility] (Andrea) (Andrea) 09:17: [facility] COVID-19 Vaccine COVID-19 Vaccine 2020-08-19 Completed [facility] (Andrea) (Andrea) 09:17:00 - [facility] COVID-19 Vaccine COVID-19 Vaccine 2020-08-19 Completed [facility] (Andrea) (Andrea) 09:17:00 - [facility] COVID-19 Vaccine COVID-19 Vaccine 2020-08-19 Completed [facility] (Andrea) (Andrea) 09:17:00 [facility] COVID-19 Vaccine COVID-19 Vaccine 2020-08-19 Completed [facility] (Andrea) (Andrea) 09:17:00 - [facility] COVID-19 Vaccine COVID-19 Vaccine 2020-08-19 Completed [facility] (Andrea) (Andrea) 09:17:00 [facility] COVID-19 Vaccine COVID-19 Vaccine 2020-08-19 Completed [facility] (Andrea) (Andrea) 09:17:00 [facility] COVID-19 Vaccine COVID-19 Vaccine 2020-08-19 Completed [facility] (Andrea) (Andrea) 09:17:00 [facility] COVID-19 Vaccine COVID-19 Vaccine 2020-08-19 Completed [facility] (Andrea) (Andrea) 09:17:00 [facility] COVID-19 Vaccine COVID-19 Vaccine 2020-08-19 Completed [facility] (Andrea) (Andrea) 09:17:00 [facility] COVID-19 Vaccine COVID-19 Vaccine 2020-08-19 Completed [facility] (Andrea) (Andrea) 09:17:00 [facility] COVID-19 Vaccine COVID-19 Vaccine 2020-08-19 Completed [facility] (Andrea) (Andrea) 09:17:00 [facility] COVID-19 Vaccine COVID-19 Vaccine 2020-08-19 Completed [facility] (Andrea) (Andrea) 09:17:00 [facility] Vital Signs Vital Name Observation Time Observation Value Comments Source Systolic blood 2022-10-31 17:36:00 132 mm[Hg] [facility] pressure [facility] Diastolic blood 2022-10-31 17:36:00 61 mm[Hg] [facility] pressure [facility] Heart rate 2022-10-31 17:36:00 67 /min [facility] Respiratory rate 2022-10-31 17:36:00 19 /min [facility] Oxygen saturation in 2022-10-31 17:36:00 100 /min [facility] Arterial blood by [facility] Pulse oximetry Branch Body temperature 2022-10-31 13:59:00 37.39 [facility] Body height 2022-10-31 13:59:00 177.8 cm [facility] Body weight 2022-10-31 13:59:00 71.668 kg [facility] BMI 2022-10-31 13:59:00 22.67 kg/m2 [facility] Heart rate 2022-10-15 19:00:00 92 /min [facility] Respiratory rate 2022-10-15 19:00:00 13 /[facility] Oxygen saturation in 2022-10-15 19:00:00 86 /min [facility] Arterial blood by [facility] Pulse oximetry Branch Systolic blood 2022-10-15 17:00:00 144 mm[Hg] Univer [facility]ity of pressure [facility] Diastolic blood 2022-10-15 17:00:00 53 mm[Hg] [facility] Body temperature 2022-10-15 16:08:00 37.44 [facility] Body weight 2022-10-15 14:00:00 70.489 kg [facility] BMI 2022-10-15 14:00:00 25.86 kg/m2 [facility] Body height 2022-10-10 19:00:00 165.1 cm [facility] height 2022-02-17 15:00:00 70 [in_i] [facility] weight 2022-02-17 15:00:00 208 [lb_av] [facility] temperature 2022-02-17 15:00:00 98.1 [degF] [facility] bmi 2022-02-17 15:00:00 29.84 kg/m2 [facility] - [facility] blood pressure 2022-02-17 15:00:00 121 mm[Hg] [facility] - systolic [facility] blood pressure 2022-02-17 15:00:00 61 mm[Hg] [facility] - diastolic [facility] height 2022-01-06 14:30:00 70 [in_i] [facility] - [facility] weight 2022-01-06 14:30:00 208 [lb_av] [facility] - [facility] bmi 2022-01-06 14:30:00 29.84 kg/m2 [facility] - [facility] blood pressure 2022-01-06 14:30:00 137 mm[Hg] [facility] - systolic [facility] blood pressure 2022-01-06 14:30:00 79 mm[Hg] [facility] - diastolic [facility] height 2021-11-03 09:45:00 70 [in_i] [facility] - [facility] weight 2021-11-03 09:45:00 210 [lb_av] [facility] - [facility] bmi 2021-11-03 09:45:00 30.13 kg/m2 [facility] - [facility] blood pressure 2021-11-03 09:45:00 144 mm[Hg] [facility] - systolic [facility] blood pressure 2021-11-03 09:45:00 86 mm[Hg] [facility] - diastolic [facility] height 2021-07-28 14:10:00 70 [in_i] [facility] - [facility] weight 2021-07-28 14:10:00 211.8 [lb_av] [facility] temperature 2021-07-28 14:10:00 97.5 [degF] Common S pirit [facility] bmi 2021-07-28 14:10:00 30.39 kg/m2 [facility] oximetry 2021-07-28 14:10:00 93 % [facility] S [facility]irit [facility] respiratory rate 2021-07-28 14:10:00 16 /min Comm on [facility] blood pressure 2021-07-28 14:10:00 134 mm[Hg] Common [facility] - systolic [facility] blood pressure 2021-07-28 14:10:00 63 mm[Hg] Common [facility] - diastolic [facility] height 2021-07-28 13:20:00 70 [in_i] Common S pirit [facility] weight 2021-07-28 13:20:00 211.8 [lb_av] Common [facility] temperature 2021-07-28 13:20:00 97.5 [degF] Common [facility] bmi 2021-07-28 13:20:00 30.39 kg/m2 [facility] oximetry 2021-07-28 13:20:00 93 % Common [facility] respiratory rate 2021-07-28 13:20:00 16 /min Comm on [facility] blood pressure 2021-07-28 13:20:00 134 mm[Hg] Common [facility] - systolic [facility] blood pressure 2021-07-28 13:20:00 62 mm[Hg] Common [facility] - diastolic [facility] height 2021-04-28 13:10:00 70 [in_i] Common [facility] weight 2021-04-28 13:10:00 215.9 [lb_av] Common [facility] temperature 2021-04-28 13:10:00 97.3 [degF] Common S [facility] bmi 2021-04-28 13:10:00 30.98 kg/m2 Common S [facility] oximetry 2021-04-28 13:10:00 95 % Common S [facility] respiratory rate 2021-04-28 13:10:00 17 /min Comm on [facility] blood pressure 2021-04-28 13:10:00 121 mm[Hg] Common [facility] - systolic [facility] blood pressure 2021-04-28 13:10:00 60 mm[Hg] Common [facility] - diastolic [facility] height 2021-03-12 09:30:00 70 [in_i] [facility] weight 2021-03-12 09:30:00 211.4 [lb_av] [facility] temperature 2021-03-12 09:30:00 97.7 [degF] [facility] bmi 2021-03-12 09:30:00 30.33 kg/m2 [facility] oximetry 2021-03-12 09:30:00 95 % [facility] respiratory rate 2021-03-12 09:30:00 16 /min Comm on [facility] blood pressure 2021-03-12 09:30:00 132 mm[Hg] Common [facility] - systolic [facility] blood pressure 2021-03-12 09:30:00 67 mm[Hg] Common [facility] - diastolic [facility] Heart Rate 2022-01-02 21:14:00 [facility] Respitory Rate 2022-01-02 21:14:00 [facility] Systolic (mm Hg) 2022-01-02 21:14:00 [facility] [place] Diastolic (mm Hg) 2022-01-02 21:14:00 [facility] [place] Height 2022-01-02 17:28:00 167.64 cm [facility] BMI Calculated 2022-01-02 17:28:00 [facility] [place] Weight 2022-01-02 17:28:00 [facility] Systolic (mm Hg) 2022-01-02 17:28:00 [facility] [place] Diastolic (mm Hg) 2022-01-02 17:28:00 [facility] Heart Rate 2022-01-02 17:28:00 [facility] Respitory Rate 2022-01-02 17:28:00 [facility] [place] Temperature Oral (F) 2022-01-02 17:28:00 97.5 F [facility] Temperature Oral (F) 2021-12-17 00:00:00 98.0 F [facility] Heart Rate 2021-12-17 00:00:00 [facility] Respitory Rate 2021-12-17 00:00:00 [facility] [place] Systolic (mm Hg) 2021-12-17 00:00:00 [facility] [place] Diastolic (mm Hg) 2021-12-17 00:00:00 [facility] Heart Rate 2021-12-16 21:00:00 [facility] Respitory Rate 2021-12-16 21:00:00 [facility] Systolic (mm Hg) 2021-12-16 21:00:00 [facility] Diastolic (mm Hg) 2021-12-16 21:00:00 [facility] [place] Temperature Oral (F) 2021-12-16 21:00:00 98.0 F [facility] Heart Rate 2021-12-16 20:20:00 [facility] Respitory Rate 2021-12-16 20:20:00 [facility] [place] Systolic (mm Hg) 2021-12-16 20:20:00 [facility] Diastolic (mm Hg) 2021-12-16 20:20:00 [facility] Temperature Oral (F) 2021-12-16 20:20:00 97.3 F [facility] Heart Rate 2021-12-15 08:58:06 [facility] Systolic (mm Hg) 2021-12-15 08:58:01 [facility] [place] Diastolic (mm Hg) 2021-12-15 08:58:01 [facility] Heart Rate 2021-12-15 08:58:01 [facility] Temperature Oral (F) 2021-12-15 08:57:27 98.2 F [facility] Temperature Oral (F) 2021-12-15 05:00:00 97.5 F [facility] Heart Rate 2021-12-15 05:00:00 [facility] Systolic (mm Hg) 2021-12-15 05:00:00 [facility] [place] Diastolic (mm Hg) 2021-12-15 05:00:00 [facility] Height 2021-12-15 03:03:00 177.8 cm [facility] Weight 2021-12-15 03:03:00 [facility] BMI Calculated 2021-12-15 03:03:00 [facility] Temperature Oral (F) 2021-12-15 01:20:46 97.4 F [facility] Systolic (mm Hg) 2021-12-15 01:20:42 [facility] Diastolic (mm Hg) 2021-12-15 01:20:42 [facility] [place] Respitory Rate 2021-12-15 00:45:00 [facility] [place] Height 2021-12-15 00:13:00 172.72 cm [facility] BMI Calculated 2021-12-15 00:13:00 [facility] Weight 2021-12-15 00:13:00 [facility] Respitory Rate 2021-12-14 23:56:00 [facility] [place] Height 2021-12-14 23:34:00 172.72 cm [facility] Weight 2021-12-14 23:34:00 [facility] Respitory Rate 2021-12-14 23:18:00 [facility] BMI Calculated 2021-12-14 19:29:00 [facility] [place] Temperature Oral (F) 2021-12-04 14:04:00 97.9 F [facility] Heart Rate 2021-12-04 14:04:00 [facility] Respitory Rate 2021-12-04 14:04:00 [facility] [place] Systolic (mm Hg) 2021-12-04 14:04:00 [facility] [place] Diastolic (mm Hg) 2021-12-04 14:04:00 [facility] [place] Temperature Oral (F) 2021-12-04 12:30:00 97.9 F [facility] Heart Rate 2021-12-04 12:30:00 [facility] Respitory Rate 2021-12-04 12:30:00 [facility] Systolic (mm Hg) 2021-12-04 12:30:00 [facility] Diastolic (mm Hg) 2021-12-04 12:30:00 [facility] Respitory Rate 2021-12-04 11:45:00 [facility] [place] Heart Rate 2021-12-04 11:45:00 [facility] Temperature Oral (F) 2021-12-04 11:45:00 98.4 F [facility] Systolic (mm Hg) 2021-12-04 04:57:00 [facility] [place] Diastolic (mm Hg) 2021-12-04 04:57:00 [facility] [place] Weight 2021-12-03 23:22:00 [facility] Respitory Rate 2021-11-27 00:01:00 [facility] [place] Heart Rate 2021-11-26 21:50:00 [facility] Respitory Rate 2021-11-26 21:50:00 [facility] Systolic (mm Hg) 2021-11-26 21:50:00 [facility] [place] Diastolic (mm Hg) 2021-11-26 21:50:00 [facility] Temperature Oral (F) 2021-11-26 18:40:00 98.0 F [facility] Heart Rate 2021-11-26 18:40:00 [facility] Respitory Rate 2021-11-26 18:40:00 [facility] Systolic (mm Hg) 2021-11-26 18:40:00 [facility] Diastolic (mm Hg) 2021-11-26 18:40:00 [facility] Heart Rate 2021-11-26 16:41:35 [facility] Systolic (mm Hg) 2021-11-26 16:41:27 [facility] Diastolic (mm Hg) 2021-11-26 16:41:27 [facility] [place] Temperature Oral (F) 2021-11-26 16:40:28 98.4 F [facility] Temperature Oral (F) 2021-11-26 13:00:17 98.3 F [facility] Height 2021-11-25 03:24:00 177.8 cm [facility] BMI Calculated 2021-11-25 03:24:00 [facility] [place] Weight 2021-11-25 03:24:00 [facility] Procedures Procedure Date / Time Performing Clinician Source Performed CT ABDOMEN PELVIS WO 2022-10-31 14:52:20 Ronnie Ayala [facility] CONTRAST [facility] CT THORAX WO CONTRAST 2022-10-31 14:52:20 Ronnie Ayala [facility] LIPASE 2022-10-31 14:22:00 Ronnie Ayala [facility] COMP. METABOLIC PANEL 2022-10-31 14:22:00 Ronnie Ayala [facility] ([id number]) [facility] [place] CBC WITH DIFF 2022-10-31 14:22:00 Ronnie Ayala [facility] NOTICE OF PRIVACY 2022-10-31 13:54:24 Doctor Unassigned, [facility] PRACTICES [facility] [place] CONSENT/REFUSAL FOR 2022-10-31 13:53:28 Doctor Unassigned, [facility] DIAGNOSIS AND TREATMENT [facility] POCT GLUCOSE 2022-10-15 16:16:00 [facility] (AUTOMATED) [facility] XR CHEST 1 VW 2022-10-15 14:27:00 Abdoul [facility] POCT GLUCOSE 2022-10-15 12:24:00 Dominic [facility] (AUTOMATED) [facility] BASIC METABOLIC PANEL 2022-10-15 09:26:00 Marianna Barbour [facility] (NA, K, CL, CO2, Medical [facility] GLUCOSE, BUN, CREATININE, CA) CBC WITH DIFF 2022-10-15 09:26:00 Marianna Barbour [facility] PREPARE PACKED RBC 2022-10-15 05:15:09 Anita Sanchez [facility] POCT GLUCOSE 2022-10-15 01:54:00 Dominic [facility] (AUTOMATED) [facility] XR CHEST 1 VW 2022-10-15 01:09:38 [facility]oul [facility] IR THORACENTESIS WITH 2022-10-14 23:00:51 Marianna Barbour [facility] IMAGING [facility] GLUCOSE BODY FLUID 2022-10-14 22:53:00 Marianna Barbour [facility] T.PROTEIN BODY FLUID 2022-10-14 22:53:00 Marianna Barbour [facility] BODY FLUID DIRECT COUNT 2022-10-14 22:53:00 Marianna Barbour [facility] BODY FLUID 2022-10-14 22:53:00 Marianna Barbour [facility] CULTURE(AEROBIC/ANAEROB Medical Branch IC) LDH TOTAL BODY FLUID 2022-10-14 22:53:00 Marianna Barbour [facility] XR CHEST 1 VW 2022-10-14 22:38:00 Josi Schreiber [facility] POCT GLUCOSE 2022-10-14 21:38:00 Dominic [facility] (AUTOMATED) [facility] HEPATITIS B SURFACE 2022-10-14 19:06:00 Anita Sanchez [facility] ANTIBODY [facility] HEPATITIS B SURFACE 2022-10-14 19:06:00 Anita Sanchez [facility] ANTIGEN [facility] POCT GLUCOSE 2022-10-14 16:36:00 Dominic [facility] (AUTOMATED) [facility] POCT GLUCOSE 2022-10-14 12:50:00 Dominic [facility] (AUTOMATED) [facility] PHOSPHORUS 2022-10-14 08:27:00 Mine Mosqueda [facility] MAGNESIUM 2022-10-14 08:27:00 Dominic [facility] BASIC METABOLIC PANEL 2022-10-14 08:27:00 Mine Mosqueda [facility] (NA, K, CL, CO2, [facility] GLUCOSE, BUN, CREATININE, CA) VANCOMYCIN TROUGH 2022-10-14 08:27:00 Dahiana Albert [facility] CBC WITH DIFF 2022-10-14 08:27:00 Mine Mosqueda [facility] DISCLOSURE AND CONSENT, 2022-10-14 05:01:00 Doctor Unassigned, [facility] MEDICAL AND SURGICAL [facility] PROCEDURES POCT GLUCOSE 2022-10-14 03:13:00 Mine Mosqueda [facility] (AUTOMATED) [facility] POCT GLUCOSE 2022-10-13 21:41:00 Mine Mosqueda [facility] (AUTOMATED) [facility] POCT GLUCOSE 2022-10-13 16:25:00 Mine Mosqueda [facility] (AUTOMATED) [facility] POCT GLUCOSE 2022-10-13 12:34:00 Mine Mosqueda [facility] (AUTOMATED) [facility] BASIC METABOLIC PANEL 2022-10-13 09:16:00 Mine Mosqueda [facility] (NA, K, CL, CO2, [facility] GLUCOSE, BUN, CREATININE, CA) CBC WITH DIFF 2022-10-13 09:16:00 Dominic [facility] POCT GLUCOSE 2022-10-13 01:24:00 Dominic [facility] (AUTOMATED) [facility] POCT GLUCOSE 2022-10-12 21:23:00 Dominic [facility] (AUTOMATED) [facility] TRANSFUSE PACKED RBC 2022-10-12 18:39:00 Luis A [facility] PREPARE PACKED RBC 2022-10-12 18:29:53 [facility] A [facility] POCT GLUCOSE 2022-10-12 16:47:00 Dominic [facility] (AUTOMATED) [facility] BLOOD CULTURE SCREEN 2022-10-12 15:52:00 Luis A [facility] BLOOD CULTURE SCREEN 2022-10-12 15:40:00 Luis A [facility] XR CHEST 1 VW 2022-10-12 14:31:35 Dominic [facility] POCT GLUCOSE 2022-10-12 12:44:00 Mine Mosqueda [facility] (AUTOMATED) [facility] PHOSPHORUS 2022-10-12 09:58:00 Dominic [facility] MAGNESIUM 2022-10-12 09:58:00 Dominic [facility] TROPONIN I 2022-10-12 09:58:00 Tim Alejandro [facility] BASIC METABOLIC PANEL 2022-10-12 09:58:00 Mine Mosqueda [facility] (NA, K, CL, CO2, [facility] GLUCOSE, BUN, CREATININE, CA) LIPID PANEL 2022-10-12 09:58:00 Tim Alejandro [facility] ([id number])(TOTAL Medical Branch CHOLESTEROL, TRIGLYCERIDES, HDL) CBC WITH DIFF 2022-10-12 09:58:00 Dominic [facility] N-TERMINAL PRO-BNP 2022-10-12 09:58:00 Tim Alejandro [facility] POCT GLUCOSE 2022-10-12 06:42:00 Dominic [facility] (AUTOMATED) [facility] TROPONIN I 2022-10-12 03:10:00 [facility] 2022-10-12 01:19:00 Dominic [facility] (AUTOMATED) [facility] OCCULT (GUAIAC) BLOOD 2022-10-11 21:58:00 Mine Mosqueda [facility] POCT GLUCOSE 2022-10-11 21:19:00 Dominic [facility] (AUTOMATED) [facility] IRON 2022-10-11 18:20:00 Dominic [facility] TOTAL IRON BINDING 2022-10-11 18:20:00 Dominic [facility] CAPACITY [facility] TROPONIN I 2022-10-11 18:20:00 Luis A [facility] RETICULOCYTES AUTOMATED 2022-10-11 18:20:00 Dominic [facility] PROCALCITONIN 2022-10-11 18:20:00 Dominic [facility] POCT GLUCOSE 2022-10-11 16:58:00 Dominic [facility] (AUTOMATED) [facility] POCT GLUCOSE 2022-10-11 16:05:00 Dominic [facility] (AUTOMATED) [facility] ABORH CONFIRMATION (LAB 2022-10-11 15:23:00 Luis A [facility]) Medical Branch TROPONIN I 2022-10-11 15:08:00 Luis A [facility] POCT GLUCOSE 2022-10-11 14:22:00 Mine Mosqueda [facility] (AUTOMATED) [facility] [place] TRANSTHORACIC ECHO 2022-10-11 13:32:00 Luis A [facility] (TTE) COMPLETE Medical Branch POCT GLUCOSE 2022-10-11 13:04:00 Dominic [facility] (AUTOMATED) [facility] POCT GLUCOSE 2022-10-11 12:04:00 Dominic [facility] (AUTOMATED) [facility] POCT GLUCOSE 2022-10-11 11:21:00 Dominic [facility] (AUTOMATED) [facility] HB ABO GROUPING 2022-10-11 11:20:00 Luis A [facility] PHOSPHORUS 2022-10-11 09:41:00 Luis A [facility] MAGNESIUM 2022-10-11 09:41:00 Luis A [facility] TROPONIN I 2022-10-11 09:41:00 Luis A [facility] BASIC METABOLIC PANEL 2022-10-11 09:41:00 Luis A [facility] (NA, K, CL, CO2, Medical [facility] GLUCOSE, BUN, CREATININE, CA) CBC WITHOUT DIFF 2022-10-11 09:41:00 Luis A [facility] POCT GLUCOSE 2022-10-11 09:41:00 Dominic [facility] (AUTOMATED) [facility] N-TERMINAL PRO-BNP 2022-10-11 09:41:00 [facility] POCT GLUCOSE 2022-10-11 08:43:00 Mine Mosqueda [facility] (AUTOMATED) [facility] POCT GLUCOSE 2022-10-11 07:36:00 Mine Mosqueda [facility] (AUTOMATED) [facility] POCT GLUCOSE 2022-10-11 06:18:00 Dominic [facility] (AUTOMATED) [facility] POCT GLUCOSE 2022-10-11 05:52:00 Mine Mosqueda [facility] (AUTOMATED) [facility] POCT GLUCOSE 2022-10-11 04:24:00 Dominic [facility] (AUTOMATED) [facility] POCT GLUCOSE 2022-10-11 03:33:00 Mine Mosqueda [facility] (AUTOMATED) [facility] POCT GLUCOSE 2022-10-11 02:08:00 Mine Mosqueda [facility] (AUTOMATED) [facility] POCT GLUCOSE 2022-10-11 01:08:00 Mine Mosqueda [facility] (AUTOMATED) [facility] MRSA / MSSA SCREEN BY 2022-10-11 00:16:00 Mine Mosqueda [facility] ERNA, [facility] CRITICAL CARE 2022-10-10 23:43:37 Fabian Fernandes [facility] Branch POCT GLUCOSE 2022-10-10 23:20:00 Mine Mosqueda [facility] (AUTOMATED) [facility] POCT GLUCOSE 2022-10-10 21:42:00 Fabian Fernandes [facility] (AUTOMATED) [facility] POCT GLUCOSE 2022-10-10 21:25:00 Fabian Fernandes [facility] (AUTOMATED) [facility] HB ECG ROUTINE & RHYTHM 2022-10-10 21:20:02 Fabian Fernandes [facility] STRIP [facility] AC PANEL 21 + LACTIC 2022-10-10 20:50:00 Fabian Fernandes [facility] ACID [facility] POCT GLUCOSE 2022-10-10 20:32:00 Fabian Fernandes [facility] (AUTOMATED) [facility] CT THORAX WO CONTRAST 2022-10-10 20:31:25 Fabian Fernandes [facility] CT ABDOMEN PELVIS WO 2022-10-10 20:30:49 Fabian Fernandes [facility] CONTRAST [facility] CT HEAD WO CONTRAST 2022-10-10 20:30:49 Fabian Fernandes [facility] POCT GLUCOSE 2022-10-10 19:43:00 Fabian Fernandes [facility] (AUTOMATED) [facility] XR CHEST 1 VW 2022-10-10 19:40:00 Fabian Fernandes [facility] BLOOD CULTURE SCREEN 2022-10-10 19:38:00 Fabian Fernandes [facility] BLOOD CULTURE WORKUP 2022-10-10 19:38:00 Fabian Fernandes [facility] GRAM POSITIVE BLOOD 2022-10-10 19:38:00 Fabian Fernandes [facility] PATHOGENS DNA Medical Branch PROBE-AEROBIC ASSIGNMENT OF BENEFITS 2022-10-10 19:11:20 Doctor Unassigned, [facility] CONSENT/REFUSAL FOR 2022-10-10 19:10:59 Doctor Unassigned, [facility] DIAGNOSIS AND TREATMENT [facility] [place] TROPONIN I 2022-10-10 19:08:00 Fabian Fernandes [facility] COMP. METABOLIC PANEL 2022-10-10 19:08:00 Fabian Fernandes [facility] ([id number]) [facility] [place] CBC WITH DIFF 2022-10-10 19:08:00 Fabian Fernandes [facility] GLYCOSYLATED HEMOGLOBIN 2022-10-10 19:08:00 Mine Mosqueda [facility] (A1C) Medical Branch N-TERMINAL PRO-BNP 2022-10-10 19:08:00 Fabian Fernandes [facility] POCT GLUCOSE 2022-10-10 18:58:00 Fabian Fernandes [facility] (AUTOMATED) Medical Branch [id number] 2021-10-18 00:00:00 Andrade day Encounters Start End Encounter Admission Attending Care Care Encounter Source Date/Time Date/Time Type Type Clinicians Facility Department ID 2022-11-10 Outpatient [facility], STLMLC STLMLC [id number] [place] 11:36:01 [place] [address] [facility] 2022-05-20 Outpatient [facility], STLMLC STLMLC [id number] Common 08:24:01 [place] [address] [facility] 2022-05-15 Outpatient [facility], STLMLC STLMLC [id number] Common 08:53:00 [place] [address] [facility] 2022-05-11 Outpatient [facility], STLMLC STLMLC [id number] [place] 14:49:00 [place] [address] [facility] 2022-05-08 Outpatient [facility], STLMLC STLMLC [id number] [place] 10:15:01 [place] [address] [facility] 2022-05-07 Outpatient [facility], STLMLC STLMLC [id number] [place] 11:53:00 [place] [address] [facility] 2022-02-18 Outpatient [facility], STLMLC STLMLC [id number] [place] 12:05:01 [place] [address] [facility] 2022-01-01 Outpatient [facility], STLMLC STLMLC [id number] [place] 10:24:01 [place] [address] [facility] 2021-12-29 Outpatient [facility], STLMLC STLMLC [id number] [place] 08:34:00 [place] [address] [facility] 2021-12-16 Outpatient [facility] [id number] [place] 14:42:[address] [place] [address] 2021-11-19 Outpatient [facility], STLMLC STLMLC [id number] [place] 08:42:01 [place] [address] [facility] 2021-11-03 Outpatient [facility], STLMLC STLMLC [id number] [place] 10:33:01 [place] [address] [facility] 2021-10-15 Outpatient 3 [id number] ENCPL REF [facility] 08:19:25 [facility] 2021-10-14 Outpatient 3 [id number] ENCPL REF [facility] 11:59:03 [facility]17 [facility] 2021-06-25 Outpatient [facility], STLMLC STLMLC [id number] [place] 14:22:06 [place] [address] [facility] 2021-06-25 Outpatient [facility], STLMLC STLMLC [id number] [place] 14:13:51 [place] [address] [facility] 2021-06-25 Outpatient [facility], STLMLC STLMLC [id number] [place] 13:38:12 [place] [address] [facility] 2021-06-25 Outpatient [facility], STLMLC STLMLC [id number] [place] 12:43:29 [place] [address] [facility] 2021-06-25 Outpatient [facility], STLMLC STLMLC [id number] [place] 12:42:27 [place] [address] [facility] 2021-06-25 Outpatient [facility], STLMLC STLMLC [id number] [place] 12:31:12 [place] [address] [facility] 2021-06-25 Outpatient [facility], STLMLC STLMLC [id number] [place] 12:31:03 [place] [address] [facility] 2021-06-25 Outpatient [facility], STLMLC STLMLC [id number] [place] 12:30:21 [place] [address] [facility] 2021-06-25 Outpatient [facility], STLMLC STLMLC [id number] [place] 11:00:43 [place] [address] [facility] 2022-10-31 2022-10-31 [id number] Univers 09:00:00 12:40:00 RONNIE ity [facility] 2022-10-31 2022-10-31 Emergency [facility] [id number] Univers 09:00:00 12:40:00 Ronnie CARRASQUILLO [id number] i ty of NATASHA [id number] [facility] [id number] [facility] 084 Branch 2022-10-16 2022-10-16 Transition SHAJI [facility] [id number] Univers 00:00:00 00:00:00 of Care Ubaldo Avendano TORI [id number] ity of GWENDOLYN [id number] [facility] [id number] [facility] 403 Branch 2022-10-10 2022-10-15 Inpatient X [facility] [id number] Univers 13:54:00 14:40:00 MARIANNA leal [facility] 2022-10-10 2022-10-15 [facility] Fernandes [facility] [id number] Univers 13:54:00 14:40:00 Encounter Mine Mosqueda [id number] ity of Marianna Barbour [id number] [facility] [id number] [facility] 080 Branch 2022-07-03 2022-07-03 (TEL) STLMLC STLMLC [id number] Co mmon 00:00:00 00:00:00 [facility] 2022-06-08 2022-06-08 (TEL) STLMLC STLMLC [id number] Co mmon 00:00:00 00:00:00 [facility] 2022-05-06 2022-05-06 (TEL) STLMLC STLMLC [id number] Co mmon 00:00:00 00:00:00 [facility] 2022-04-03 2022-04-03 (TEL) STLMLC STLMLC [id number] Co mmon 00:00:00 00:00:00 [facility] 2022-02-17 2022-02-17 (TEL) STLMLC STLMLC [id number] Co mmon 00:00:00 00:00:00 Spirit - [facility] 2022-02-17 2022-02-17 OFFICE STLMLC STLMLC [id number] Co mmon 00:00:00 00:00:00 VISIT Spirit ESTAB PT - CHI LEVEL 4 [facility] 2022-01-06 2022-01-06 OFFICE STLMLC STLMLC [id number] Co mmon 00:00:00 00:00:00 VISIT Spirit ESTAB PT - CHI LEVEL 4 [facility] 2022-01-02 2022-01-02 [facility] [id number] Memoria 17:12:00 21:33:00 latrice Celeste [address] [facility] 2022-01-02 2022-01-02 [facility] [id number] [facility]oria 17:12:00 21:33:00 latrice Celeste [address] [facility] 2022-01-02 2022-01-[id number] MHBL 12:12:00 16:33:00 CAREY 2022-01-02 2022-01-02 Outpatient Long, [facility] [id number] 12:12:00 16:33:00 Carey R 03 2022-01-01 2022-01-01 (TEL) STLMLC STLC [id number] Co mmon 00:00:00 00:00:00 [facility] [facility] 2021-12-31 2021-12-31 (TEL) STLMLC STLC [id number] Co mmon 00:00:00 00:00:00 [facility] 2021-12-14 2021-12-17 [facility] [id number] Memoria 19:19:49 03:14:00 latrice Celeste [address] [facility] 2021-12-14 2021-12-17 [facility] [id number] Memoria 19:19:49 03:14:[address] [facility] 2021-12-14 2021-12-16 Inpatient E SAJJA, MHBL MED [id number] MHBL 18:26:00 22:14:00 ZACHARY 2021-12-14 2021-12-16 Outpatient Sajja, MHPL MHPL [id number] 14:19:49 22:14:00 Zachary 2021-12-14 2021-12-14 Outpatient Ajibade, MHPL MHPL [id number] 14:19:49 14:19:49 Monse 02 Akinwale 2021-12-03 2021-12-04 [facility] [id number] Memoria 23:19:26 14:53:[address] [facility] 2021-12-03 2021-12-04 Emergency [facility] [id number] Memoria 23:19:26 14:53:[address] [place] [facility] 2021-12-03 2021-12-04 Outpatient Fadowole, MHPL MHPL [id number] 18:19:26 09:53:00 [place] 2021-12-03 2021-12-04 Emergency E FADOWOLE, MHBL MHBL [id number] MHBL 18:19:00 09:53:00 PEPPER 2021-12-01 2021-12-01 Outpatient COH COH PIJFJKR ZIB COH 00:00:00 00:00:00 [id number] 2021-11-25 2021-11-27 [facility] [id number] Memoria 03:23:10 00:12:00 n r [place] [address] [facility] 2021-11-25 2021-11-27 [facility]atio [facility] [id number] Memoria 03:23:10 00:12:00 n r [place] [address] [facility] 2021-11-25 2021-11-26 Outpatient E AJIBADE, MHBL MED [id number] MHBL 10:37:00 19:12:00 MONSE 2021-11-24 2021-11-26 Outpatient Ajibade, MHPL PL [id number] 22:23:10 19:12:00 Monse 00 [place] 2021-11-24 2021-11-26 Outpatient Ajdomenicode, MHPL MHPL [id number] 22:23:10 19:12:00 Monse 00 John 2021-11-24 2021-11-24 (TEL) STLMLC STLMLC [id number] Co mmon 00:00:00 00:00:00 [facility] 2021-10-16 2021-11-03 Inpatient 3 NATHANIEL, ENCPL GILDA [id number] [facility]compa 23:26:00 21:40:00 [facility] [place] 2021-11-03 2021-11-03 OFFICE STLMLC STLMLC [id number] Co mmon 00:00:00 00:00:[address] [facility] it PT LEVEL 4 [facility] 2021-10-17 2021-10-17 (TEL) STLMLC STLMLC [id number] Co mmon 00:00:00 00:00:00 [facility] 2021-08-12 2021-08-12 (TEL) STLMLC STLMLC [id number] Co mmon 00:00:00 00:00:00 [facility] 2021-07-28 2021-07-28 OFFICE STLMLC STLMLC [id number] Co mmon 00:00:00 00:00:00 VISIT [facility] PT - CHI LEVEL 4 [facility] 2021-07-28 2021-07-28 SUB ANNUAL STLMLC STLMLC [id number] Common 00:00:00 00:00:00 MCR [facility] WELLNESS - CHI VISIT [facility] 2021-06-12 2021-06-12 (TEL) STLMLC STLMLC [id number] Co mmon 00:00:00 00:00:00 [facility] 2021-05-21 2021-05-21 (TEL) STLMLC STLMLC [id number] Co mmon 00:00:00 00:00:00 [facility] CHI [facility] 2021-04-28 2021-04-28 OFFICE STLMLC STLMLC [id number] Co mmon 00:00:00 00:00:00 VISIT [facility] ESTAB PT - CHI LEVEL 4 [facility] 2021-03-26 2021-03-26 (TEL) STLMLC STLMLC [id number] Co mmon 00:00:00 00:00:00 [facility] 2021-03-12 2021-03-12 OFFICE STLMLC STLMLC [id number] Co mmon 00:00:00 00:00:00 VISIT [facility] 4 [facility] 2021-02-10 2021-02-10 Outpatient STLMLC STLMLC [id number] Common 00:00:00 00:00:00 [facility] 2021-01-31 2021-01-31 Outpatient STLMLC STLMLC [id number] Common 00:00:00 00:00:00 [facility] 2021-01-13 2021-01-13 Outpatient STLMLC STLMLC [id number] Common 00:00:00 00:00:00 [facility] 2021-01-08 2021-01-08 Outpatient STLMLC STLMLC [id number] Common 00:00:00 00:00:00 [facility] 2020-12-31 2020-12-31 Outpatient STLMLC STLMLC [id number] Common 00:00:00 00:00:00 [facility] 2020-12-11 2020-12-11 Outpatient STLMLC STLMLC [id number] Common 00:00:00 00:00:00 [facility] 2020-08-19 2020-08-19 Outpatient STLMLC STLMLC [id number] Common 00:00:00 00:00:00 [facility] 2020-07-19 2020-07-19 Outpatient STLMLC STLMLC [id number] Common 00:00:00 00:00:00 [facility] 2020-07-15 2020-07-15 Outpatient STLMLC STLMLC [id number] Common 00:00:00 00:00:00 [facility] 2020-06-14 2020-06-14 Outpatient STLMLC STLMLC [id number] Common 00:00:00 00:00:00 [facility] 2020-06-05 2020-06-05 Outpatient STLMLC STLMLC [id number] Common 00:00:00 00:00:00 [facility] 2020-04-23 2020-04-23 Outpatient STLMLC STLMLC [id number] Common 00:00:00 00:00:00 [facility] 2020-04-22 2020-04-22 Outpatient STLMLC STLMLC [id number] Common 00:00:00 00:00:00 [facility] 2020-04-17 2020-04-17 Outpatient STLMLC STLMLC [id number] Common 00:00:00 00:00:00 [facility] 2020-01-15 2020-01-15 [id number] Common 10:45:00 10:45:[address] [facility] 2019-10-16 2019-10-16 [id number] Common 13:00:00 13:00:[address] [facility] 2019-07-17 2019-07-17 [id number] Common 13:45:00 13:45:[address] [facility] 2019-06-14 2019-06-14 [facility] [id number] Common 11:45:00 11:45:[address] [facility] 2019-06-07 2019-06-07 [id number] Common 11:57:00 11:57:[address] [facility] 2019-05-17 2019-05-17 [facility] [id number] Common 11:30:00 11:30:[address] [facility] 2019-04-24 2019-04-24 [id number] Common 14:52:00 14:52:[address] [facility] 2019-04-19 2019-04-19 Outpatient Cornelio Corneliot [id number] Common 14:45:00 14:45:[address] [facility] 2019-04-06 2019-04-06 Outpatient Cornelio Corneliot [id number] Common 08:35:00 08:35:[address] [facility] 2019-04-04 2019-04-04 Outpatient Cornelio Corneliot [id number] Common 08:34:00 08:34:[address] [facility] 2019-03-08 2019-03-08 Outpatient Cornelio Castañedarosanat [id number] Common 10:57:00 10:57:[address] [facility] 2019-02-20 2019-02-20 Outpatient Cornelio Castañedarosanat [id number] Common 14:00:00 14:00:[address] [facility] Results Test Description Test Time Test Comments Results Result Comments Source COMP. METABOLIC PANEL (91149) 2022-10-31 15:25:34 Test Item Value Reference Range Interpretation Comme nts NA (test code = 3167877054) 136 mmol/L 135-145 K (test code = 4136557420) 4.7 mmol/L 3.5-5.0 CL (test code = 3104032901) 96 mmol/L 98-108 L CO2 TOTAL (test code = 6349356376) 31 mmol/L 23-31 AGAP (test code = 2341085546) 9 2-16 BUN (test code = 5611446320) 26 mg/dL 7-23 H GLUCOSE (test code = 0522226550) 190 mg/dL 70-110 H CREATININE (test code = 2.56 mg/dL 0.60-1.25 H 6558316497) TOTAL BILI (test code = 0.9 mg/dL 0.1-1.0 2689656225) CALCIUM (test code = 5153744620) 9.6 mg/dL 8.6-10.6 T PROTEIN (test code = 4281495479) 6.4 g/dL 6.3-8.2 ALBUMIN (test code = 7693723914) 3.5 g/dL 3.5-5.0 ALK PHOS (test code = 8207487509) 307 U/L 34-122 H ALTv (test code = 1742-6) 27 U/L 5-50 AST(SGOT) (test code = 4693028210) 28 U/L 13-40 eGFR (test code = 9492128337) 24.5 mL/min/1.73m2 MALIK (test code = MALIK) [...] tests). Lab Interpretation (test code = Abnormal 15384-7) [facility] 15:25:34 Test Item Value Reference Range Interpretation Comments LIPASE (test code = 9496714505) 212 U/L 0-220 Lab Interpretation (test code = Normal 92875-7) [facility] WITH [id number] 15:12:12 Test Item Value Reference Range Interpretation [...] RDW-SD (test code = 45.4 fL 38.5-51.6 46840-7) RDW-CV (test code = 14.3 % 12.1-15.4 788-0) PLT (test code = 191 See_Comment [Automated 777-3) message] The sy stem which generated this result transmitted reference range : 150 - 328 10*3/ ?L. The reference r samantha was not used to interpret this result as normal/abnormal . MPV (test code = 10.1 fL 9.8-13.0 90508-2) NRBC/100 WBC (test 0.0 See_Comment [Automat ed code = 1200778840) message] The system which generated this result transmitted reference range : 0.0 - 10.0 /100 WBCs. The refer ence range was not u sed to interpret th is result as normal/abnormal . NRBC x10^3 (test code See_Comment [Auto mated = 4815483439) message] The s ystem which generated this result transmitted reference range : 10*3/?L. The reference range was not used to interpret this result as normal/abnormal . GRAN MAT (NEUT) % 62.8 % (test code = 770-8) IMM GRAN % (test code 0.60 % = 7286251204) LYMPH % (test code = 23.2 % 736-9) MONO % (test code = 10.9 % 5905-5) EOS % (test code = 2.3 % 713-8) BASO % (test code = 0.2 % 706-2) GRAN MAT x10^3(ANC) 2.98 10*3/uL 1.99-6.95 (test code = 1457820561) IMM GRAN x10^3 (test 0.03 10*3/uL 0.00-0.06 code = 2090733547) LYMPH x10^3 (test code 1.10 10*3/uL 1.09-3.23 = 731-0) MONO x10^3 (test code 0.52 10*3/uL 0.36-1.02 = 742-7) EOS x10^3 (test code = 0.11 10*3/uL 0.06-0.53 711-2) BASO x10^3 (test code 0.01-0.09 = 704-7) Lab Interpretation Abnormal (test code = 67142-3) [facility] GLUCOSE (AUTOMATED)2022-10-15 16:18:07 Test Item Value Reference Range Interpretation Comments POCT GLU (test code = 8422884966) 131 mg/dL 70-110 H Lab Interpretation (test code = Abnormal 10578-0) [facility] GLUCOSE (AUTOMATED)2022-10-15 12:27:02 Test Item Value Reference Range Interpretation Comments POCT GLU (test code = 4537641574) 220 mg/dL 70-110 H Lab Interpretation (test code = Abnormal 48512-5) [facility] P[facility] RBC (in units), 2 Units 2022-10-15 05:15:09 Test Item Value Reference Range Interpretation Comments Cross Match Result Compatible (test code = 4409) ISBT Blood Type Code 6200 (test code = 335392) Unit Blood Type (test A Pos code = 4410) Unit Number (test [id number] code = 4411) Blood Expiration Date & Time (test code = 277484) Status Information Released (test code = 4412) Product Red Blood Cells Identification (test code = 4413) Product Code (test [id number] Performed at [facility] code = 4414) Laboratory Services - [facility] Blood [address] [place] [id number] Free: [phone] A No. [id number] [facility] GLUCOSE (AUTOMATED)2022-10-15 01:55:15 Test Item Value Reference Range Interpretation Comments POCT GLU (test code = 9894437760) 152 mg/dL 70-110 H Lab Interpretation (test code = Abnormal 45577-1) [facility] B Surface Antibody (HBsAb)2022-10-15 00:05:17 Test Item Value Reference Range Interpretation Comments HBsAB (test code = Negative 4006221981) HBsAb 3.80 mIU/mL Semi-Quantitative (test code = 9148201653) MALIK (test code = Interpretation: MALIK) ?Hepatitis B Surface Antibody ? Negative - Patient is considered to be not immune to infection with HBV. ? ? Positive - Anti-HBs detected at greater than or equal to 12 mIU/mL. ?Patient is considered to be immune to infection with HBV. ? [facility] B Surface Antigen (HBsAg)2022-10-14 23:47:58 Test Item Value Reference Range Interpretation Comments HBsAg Semi-Quantitative (test code = 0.09 Negative 5195-3) [facility] GLUCOSE (AUTOMATED)2022-10-14 21:41:48 Test Item Value Reference Range Interpretation Comments POCT GLU (test code = 5060888399) 118 mg/dL 70-110 H Lab Interpretation (test code = Abnormal 62914-8) [facility] GLUCOSE (AUTOMATED)2022-10-14 16:47:29 Test Item Value Reference Range Interpretation Comments POCT GLU (test code = 4659071457) 132 mg/dL 70-110 H Lab Interpretation (test code = Abnormal 71718-6) [facility] [id number] 14:16:04 Test Item Value Reference Range Interpretation Comments Blood Culture-Aerobic Culture positive. No growth AA P revious (test code = 00800-5) See Blood Culture p reliminary Workup for verified result additional was Culture In information. Progress on 10/10/2022 at 19 01 CDTPrevious preliminary verified result was No growth a t 24 hours on 10/11/2022 at 16 01 CDT Blood No organisms No growth Previous Culture-Anaerobic isolated preliminar y (test code = 62253-0) verifi ed result was Culture In Progress on 10/10/2022 at 19 01 CDTPrevious preliminary verified result was No growth a t 24 hours on 10/11/2022 at 16 01 CDTPrevious preliminary verified result was Culture In Progress on 10/12/2022 at 11 51 CDT Lab Interpretation Abnormal (test code = 71190-2) [facility] CULTURE [id number] 14:16:04 Test Item Value Reference Range Interpretation Comments Blood Culture-Aerobic Culture positive. No growth AA P revious (test code = 93396-5) See Blood Culture p reliminary Workup for verified result additional was Culture In information. Progress on 10/10/2022 at 19 01 CDTPrevious preliminary verified result was No growth a t 24 hours on 10/11/2022 at 16 01 CDT Blood No organisms No growth Previous Culture-Anaerobic isolated preliminar y (test code = 76747-2) verifi ed result was Culture In Progress on 10/10/2022 at 19 01 CDTPrevious preliminary verified result was No growth a t 24 hours on 10/11/2022 at 16 01 CDT Lab Interpretation Abnormal (test code = 61035-9) [facility] GLUCOSE (AUTOMATED)2022-10-14 12:54:35 Test Item Value Reference Range Interpretation Comments POCT GLU (test code = 6514448999) 221 mg/dL 70-110 H Lab Interpretation (test code = Abnormal 14893-1) [facility] GLUCOSE (AUTOMATED)2022-10-14 03:16:56 Test Item Value Reference Range Interpretation Comments POCT GLU (test code = 6570462111) 129 mg/dL 70-110 H Lab Interpretation (test code = Abnormal 64195-0) [facility] GLUCOSE (AUTOMATED)2022-10-13 21:44:17 Test Item Value Reference Range Interpretation Comments POCT GLU (test code = 1291436371) 95 mg/dL 70-110 Lab Interpretation (test code = Normal 86376-8) [facility] GLUCOSE (AUTOMATED)2022-10-13 16:27:34 Test Item Value Reference Range Interpretation Comments POCT GLU (test code = 8178036904) 167 mg/dL 70-110 H Lab Interpretation (test code = Abnormal 41017-8) [facility] GLUCOSE (AUTOMATED)2022-10-13 12:36:25 Test Item Value Reference Range Interpretation Comments POCT GLU (test code = 8054283821) 169 mg/dL 70-110 H Lab Interpretation (test code = Abnormal 25942-2) [facility] GLUCOSE (AUTOMATED)2022-10-13 01:25:21 Test Item Value Reference Range Interpretation Comments POCT GLU (test code = 1925622004) 142 mg/dL 70-110 H Lab Interpretation (test code = Abnormal 09115-2) [facility] POSITIVE BLOOD PATHOGENS DNA [id number] 21:42:17 Test Item Value Reference Range Interpretation Comments Coagulase Negative Positive Negative, See A Staphylococcus (test Comment/Narrative code = 08673-5) MALIK (test code = MALIK) Coagulase negative [...] contact the Antimicrobial Stewardship Program with questions.Pager: ?[phone] Testing included eleven identification and three resistance marker targets. Lab Interpretation Abnormal (test code = 77879-6) [facility] GLUCOSE (AUTOMATED)2022-10-12 21:24:15 Test Item Value Reference Range Interpretation Comments POCT GLU (test code = 3373658932) 124 mg/dL 70-110 H Lab Interpretation (test code = Abnormal 17761-0) [facility] Packed RBC (in units), 1 Units 2022-10-12 18:29:53 Test Item Value Reference Range Interpretation Comments Cross Match Result Compatible (test code = 4409) ISBT Blood Type Code 6200 (test code = 157470) Unit Blood Type (test A Pos code = 4410) Unit Number (test [id number] code = 4411) Blood Expiration Date & Time (test code = 558512) Status Information Issued (test code = 4412) Product Red Blood Cells Identification (test code = 4413) Product Code (test [id number] Performed at [facility] code = 4414) Laboratory Services - [facility] Blood [address] [place], [place] [address]Toll Free: [phone] A No. [id number] [facility])2022-10-12 16:49:16 Test Item Value Reference Range Interpretation Comments POCT GLU (test code = 3024855127) 183 mg/dL 70-110 H Lab Interpretation (test code = Abnormal 70460-9) [facility]MINAL [id number] 14:35:54 Test Item Value Reference Range Interpretation Comments NT-proBNP (test code = 91835 pg/mL <=450 H 7793002310) MALIK (test code = MALIK) Biotin has been reported to cause a negative bias, interpret results relative to patient's use of biotin. Lab Interpretation (test Abnormal code = 29485-2) [facility] [id number] 14:31:03 Test Item Value Reference Range Interpretation Comments TROPONIN I (test code = 0.296 ng/mL <=0.034 H 3626883370) MALIK (test code = MALIK) Reference (Normal) [...] biotin. Lab Interpretation Abnormal (test code = 06300-6) [facility] CenterLIP[facility] PANEL (06404)(TOTAL CHOLESTEROL, TRIGLYCERIDES, HDL)2022-10-12 14:05:04 Test Item Value Reference Range Interpretation Comments CHOL (test code = 3441261842) 61 mg/dL 120-200 L HDL (test code = 4249513306) 19 mg/dL >=40 L HDLC RATIO (test code = 5793450499) 3.2 <=5.0 TRIG (test code = 1526480746) 82 mg/dL 30-170 LDL CHOL (test code = 61365-2) 26 mg/dL <=160 VLDL (test code = 9057760551) 16 mg/dL 5-60 Lab Interpretation (test code = Abnormal 76932-8) [facility])2022-10-12 12:46:09 Test Item Value Reference Range Interpretation Comments POCT GLU (test code = 8218170855) 139 mg/dL 70-110 H Lab Interpretation (test code = Abnormal 45016-2) [facility] (NA, K, CL, CO2, GLUCOSE, BUN, CREATININE, CA)2022-10-12 11:04:31 Test Item Value Reference Range Interpretation Comments NA (test code = 136 mmol/L 135-145 9337418663) K (test code = 4.9 mmol/L 3.5-5.0 4943816689) CL (test code = 99 mmol/L 98-108 9481465411) CO2 TOTAL (test code = 27 mmol/L 23-31 7032448655) AGAP (test code = 10 2-16 5320833722) BUN (test code = 54 mg/dL 7-23 H 4696446690) GLUCOSE (test code = 136 mg/dL 70-110 H 5610406200) CREATININE (test code = 4.66 mg/dL 0.60-1.25 H 3165385458) CALCIUM (test code = 9.0 mg/dL 8.6-10.6 2066820460) eGFR (test code = 12.3 mL/min/1.73m2 3184963503) MALIK (test code = MALIK) Association of [...] tests). Lab Interpretation Abnormal (test code = 81397-6) [facility]2023-05-15 11:04:31 Test Item Value Reference Range Interpretation Comments MAGNESIUM (test code = 5209984147) 1.9 mg/dL 1.7-2.4 Lab Interpretation (test code = Normal 18274-4) [facility]PHOS[facility]US2023-05-15 11:04:11 Test Item Value Reference Range Interpretation Comments PHOSPHORUS (test code = 4786003820) 3.8 mg/dL 2.5-5.0 Lab Interpretation (test code = Normal 61322-4) [facility] WITH [id number] 10:44:53 Test Item Value Reference Range Interpretation [...] RDW-SD (test code = 46.5 fL 38.5-51.6 86348-2) RDW-CV (test code = 14.5 % 12.1-15.4 788-0) PLT (test code = 129 See_Comment L [Automated 777-3) message] The sy stem which generated this result transmitted reference range : 150 - 328 10*3/ ?L. The reference r samantha was not used to interpret this result as normal/abnormal . MPV (test code = 9.7 fL 9.8-13.0 L 74764-8) NRBC/100 WBC (test 0.0 See_Comment [Automat ed code = 7615248994) message] The system which generated this result transmitted reference range : 0.0 - 10.0 /100 WBCs. The refer ence range was not u sed to interpret th is result as normal/abnormal . NRBC x10^3 (test code See_Comment [Auto mated = 7173176743) message] The s ystem which generated this result transmitted reference range : 10*3/?L. The reference range was not used to interpret this result as normal/abnormal . GRAN MAT (NEUT) % 70.2 % (test code = 770-8) IMM GRAN % (test code 0.40 % = 5755870020) LYMPH % (test code = 19.3 % 736-9) MONO % (test code = 7.4 % 5905-5) EOS % (test code = 2.3 % 713-8) BASO % (test code = 0.4 % 706-2) GRAN MAT x10^3(ANC) 3.61 10*3/uL 1.99-6.95 (test code = 9659261897) IMM GRAN x10^3 (test 0.00-0.06 code = 3578423335) LYMPH x10^3 (test code 0.99 10*3/uL 1.09-3.23 L = 731-0) MONO x10^3 (test code 0.38 10*3/uL 0.36-1.02 = 742-7) EOS x10^3 (test code = 0.12 10*3/uL 0.06-0.53 711-2) BASO x10^3 (test code 0.01-0.09 = 704-7) Lab Interpretation Abnormal (test code = 34099-4) [facility] GLUCOSE (AUTOMATED)2022-10-12 06:45:05 Test Item Value Reference Range Interpretation Comments POCT GLU (test code = 0948574781) 189 mg/dL 70-110 H Lab Interpretation (test code = Abnormal 03096-9) [facility] GLUCOSE (AUTOMATED)2022-10-12 01:24:37 Test Item Value Reference Range Interpretation Comments POCT GLU (test code = 1729153060) 145 mg/dL 70-110 H Lab Interpretation (test code = Abnormal 31877-5) [facility] GLUCOSE (AUTOMATED)2022-10-11 21:34:09 Test Item Value Reference Range Interpretation Comments POCT GLU (test code = 1789339851) 140 mg/dL 70-110 H Lab Interpretation (test code = Abnormal 84933-8) [facility] GLUCOSE (AUTOMATED)2022-10-11 17:09:13 Test Item Value Reference Range Interpretation Comments POCT GLU (test code = 0287555632) 174 mg/dL 70-110 H Lab Interpretation (test code = Abnormal 86177-0) [facility]2022-10-11 16:19:41 Test Item Value Reference Range Interpretation Comments POCT GLU (test code = 2750989148) 170 mg/dL 70-110 H Lab Interpretation (test code = Abnormal 29294-1) [facility] GLUCOSE (AUTOMATED)2022-10-11 14:32:59 Test Item Value Reference Range Interpretation Comments POCT GLU (test code = 7087500726) 151 mg/dL 70-110 H Lab Interpretation (test code = Abnormal 53230-3) [facility] GLUCOSE (AUTOMATED)2022-10-11 13:15:13 Test Item Value Reference Range Interpretation Comments POCT GLU (test code = 5917860139) 108 mg/dL 70-110 Lab Interpretation (test code = Normal 49613-3) [facility] GLUCOSE (AUTOMATED)2022-10-11 12:14:37 Test Item Value Reference Range Interpretation Comments POCT GLU (test code = 9747300081) 106 mg/dL 70-110 Lab Interpretation (test code = Normal 45558-4) [facility] GLUCOSE (AUTOMATED)2022-10-11 11:28:53 Test Item Value Reference Range Interpretation Comments POCT GLU (test code = 9120224234) 121 mg/dL 70-110 H Lab Interpretation (test code = Abnormal 97914-1) [facility] 09:43:44 Test Item Value Reference Range Interpretation Comments POCT GLU (test code = 7957239032) 129 mg/dL 70-110 H Lab Interpretation (test code = Abnormal 12163-5) [facility]2022-10-11 08:46:38 Test Item Value Reference Range Interpretation Comments POCT GLU (test code = 2579695793) 101 mg/dL 70-110 Lab Interpretation (test code = Normal 17330-0) [facility] GLUCOSE (AUTOMATED)2022-10-11 07:38:35 Test Item Value Reference Range Interpretation Comments POCT GLU (test code = 7212825566) 102 mg/dL 70-110 Lab Interpretation (test code = Normal 16800-0) [facility] GLUCOSE (AUTOMATED)2022-10-11 06:20:36 Test Item Value Reference Range Interpretation Comments POCT GLU (test code = 5999987287) 112 mg/dL 70-110 H Lab Interpretation (test code = Abnormal 53577-3) [facility] GLUCOSE (AUTOMATED)2022-10-11 05:53:46 Test Item Value Reference Range Interpretation Comments POCT GLU (test code = 5993496296) 118 mg/dL 70-110 H Lab Interpretation (test code = Abnormal 51020-4) [facility] GLUCOSE (AUTOMATED)2022-10-11 04:25:32 Test Item Value Reference Range Interpretation Comments POCT GLU (test code = 5591340360) 127 mg/dL 70-110 H Lab Interpretation (test code = Abnormal 45369-0) [facility] GLUCOSE (AUTOMATED)2022-10-11 03:35:04 Test Item Value Reference Range Interpretation Comments POCT GLU (test code = 9035361766) 132 mg/dL 70-110 H Lab Interpretation (test code = Abnormal 90334-2) [facility] GLUCOSE (AUTOMATED)2022-10-11 02:10:18 Test Item Value Reference Range Interpretation Comments POCT GLU (test code = 3944855866) 155 mg/dL 70-110 H Lab Interpretation (test code = Abnormal 46712-8) [facility]-10-11 01:39:22 Test Item Value Reference Range Interpretation Comments HGB A1C (test code = 7.2 % 4.0-5.7 H 4548-4) MALIK (test code = MALIK) Reference RangesNormal: <5.7%Prediabetes: 5.7 - 6.4%Diabetes: > 6.5% Lab Interpretation (test Abnormal code = 88555-1) [facility] GLUCOSE (AUTOMATED)2022-10-11 01:10:41 Test Item Value Reference Range Interpretation Comments POCT GLU (test code = 0307816053) 156 mg/dL 70-110 H Lab Interpretation (test code = Abnormal 39616-8) [facility] GLUCOSE (AUTOMATED)2022-10-10 23:31:02 Test Item Value Reference Range Interpretation Comments POCT GLU (test code = 6571344192) 144 mg/dL 70-110 H Lab Interpretation (test code = Abnormal 23795-7) [facility] GLUCOSE (AUTOMATED)2022-10-10 21:44:27 Test Item Value Reference Range Interpretation Comments POCT GLU (test code = 7004244492) 138 mg/dL 70-110 H Lab Interpretation (test code = Abnormal 61918-6) [facility] GLUCOSE (AUTOMATED)2022-10-10 21:27:07 Test Item Value Reference Range Interpretation Comments POCT GLU (test code = 8332767701) 150 mg/dL 70-110 H Lab Interpretation (test code = Abnormal 46468-3) [facility] LACTIC [id number] 21:01:36 Test Item Value Reference Range Interpretation Comments PH (test code = 7.31 7.32-7.42 L 7544003615) PCO2 LORENA (test code = 55 See_Comment H [Auto mated 5472437362) message] The sy stem which generated this result transmitted reference range : 41 - 51 mmHg. The reference range was not used to interpret this result as normal/abnormal . PO2 LORENA (test code = 16 See_Comment L [Autom ated 8890495161) message] The sy stem which generated this result transmitted reference range : 25 - 40 mmHg. The reference range was not used to interpret this result as normal/abnormal . HCO3 LORENA (test code = 27 See_Comment [Auto mated 9246370952) message] The sy stem which generated this result transmitted reference range : 24 - 28 mEq/L. The reference range was not used to interpret this result as normal/abnormal . AC VBE(BEAKER) (test 0.6 mEq/L code = 8856328205) THB LORENA (test code = 8.2 g/dL 13.5-18.0 LL 6391462089) %O2HB LORENA (test code = 22.2 % 52.0-63.0 L 4537213865) %COHB LORENA (test code = 0.1 % 0.0-1.5 2561963998) %METHB LORENA (test code = 1.5 % 0.4-1.5 2970352498) VOL%O2 LORENA (test code = 2.6 % 6.0-12.0 L 0177382323) NA (test code = 132 mmol/L 135-145 L 3885191152) K+ (test code = 4.7 mmol/L 3.5-5.0 1255166600) AC CA IONZ (test code = 5.10 mg/dL 4.50-5.30 1514136339) GLUCOSE (test code = 153 mg/dL 70-110 H 0173989855) LACTIC ACID (test code 1.54 mmol/L 0.50-2.20 = 2467191592) Lab Interpretation Abnormal (test code = 70060-2) [facility]22-10-10 20:33:33 Test Item Value Reference Range Interpretation Comments POCT GLU (test code = 3287532856) 137 mg/dL 70-110 H Lab Interpretation (test code = Abnormal 44985-7) [facility] [id number] 20:24:02 Test Item Value Reference Range Interpretation Comments NT-proBNP (test code = 12507 pg/mL <=450 H 9611539013) MALIK (test code = MALIK) Biotin has been reported to cause a negative bias, interpret results relative to patient's use of biotin. Lab Interpretation (test Abnormal code = 26353-2) [facility]. METABOLIC PANEL (17311)2022-10-10 20:18:35 Test Item Value Reference Range Interpretation Comments NA (test code = 136 mmol/L 135-145 0339342187) K (test code = 4.8 mmol/L 3.5-5.0 5620712636) CL (test code = 94 mmol/L 98-108 L 2261643982) CO2 TOTAL (test code = 33 mmol/L 23-31 H 3170623486) AGAP (test code = 9 2-16 5089645185) BUN (test code = 34 mg/dL 7-23 H 9401557693) GLUCOSE (test code = 62 mg/dL 70-110 L 7638254707) CREATININE (test code = 3.14 mg/dL 0.60-1.25 H 6260738647) TOTAL BILI (test code = 0.9 mg/dL 0.1-1.2 9304746737) CALCIUM (test code = 9.4 mg/dL 8.6-10.6 3558448570) T PROTEIN (test code = 6.6 g/dL 6.3-8.2 3869459618) ALBUMIN (test code = 3.6 g/dL 3.5-5.0 7373370375) ALK PHOS (test code = 334 U/L 34-122 H 0801210942) ALTv (test code = 38 U/L 5-50 1742-6) AST(SGOT) (test code = 38 U/L 13-40 0193172018) eGFR (test code = 19.3 mL/min/1.73m2 2129613185) MALIK (test code = MALIK) Association of [...] tests). Lab Interpretation Abnormal (test code = 87091-2) [facility]22-10-10 19:48:15 Test Item Value Reference Range Interpretation Comments POCT GLU (test code = 7228370008) 50 mg/dL 70-110 LL Lab Interpretation (test code = Abnormal 86923-6) [facility] [id number] 19:44:14 Test Item Value Reference Range Interpretation Comments TROPONIN I (test code = 0.060 ng/mL <=0.034 H 4567788052) MALIK (test code = MALIK) Reference (Normal) [...] biotin. Lab Interpretation Abnormal (test code = 50885-5) [facility] WITH [id number] 19:23:50 Test Item Value Reference Range Interpretation Comments WBC (test code = 7.51 See_Comment [Automated 5290-2) message] The sy stem which generated this result transmitted reference range : 4.20 - 10.70 10*3/?L. The reference range was not used to interpret this result as normal/abnormal . RBC (test code = 2.71 See_Comment L [Automated 999-8) message] The sy stem which generated this [...] RDW-SD (test code = 46.5 fL 38.5-51.6 96877-2) RDW-CV (test code = 14.4 % 12.1-15.4 788-0) PLT (test code = 131 See_Comment L [Automated 777-3) message] The sy stem which generated this result transmitted reference range : 150 - 328 10*3/ ?L. The reference r samantha was not used to interpret this result as normal/abnormal . MPV (test code = 9.2 fL 9.8-13.0 L 37289-6) NRBC/100 WBC (test 0.0 See_Comment [Automat ed code = 7835474796) message] The system which generated this result transmitted reference range : 0.0 - 10.0 /100 WBCs. The refer ence range was not u sed to interpret th is result as normal/abnormal . NRBC x10^3 (test code See_Comment [Auto mated = 0577741678) message] The s ystem which generated this result transmitted reference range : 10*3/?L. The reference range was not used to interpret this result as normal/abnormal . GRAN MAT (NEUT) % 80.2 % (test code = 770-8) IMM GRAN % (test code 0.50 % = 0755450350) LYMPH % (test code = 9.6 % 736-9) MONO % (test code = 8.8 % 5905-5) EOS % (test code = 0.4 % 713-8) BASO % (test code = 0.5 % 706-2) GRAN MAT x10^3(ANC) 6.02 10*3/uL 1.99-6.95 (test code = 8591656026) IMM GRAN x10^3 (test 0.04 10*3/uL 0.00-0.06 code = 8904889769) LYMPH x10^3 (test code 0.72 10*3/uL 1.09-3.23 L = 731-0) MONO x10^3 (test code 0.66 10*3/uL 0.36-1.02 = 742-7) EOS x10^3 (test code = 0.03 10*3/uL 0.06-0.53 L 711-2) BASO x10^3 (test code 0.04 10*3/uL 0.01-0.09 = 704-7) Lab Interpretation Abnormal (test code = 11038-4) [facility] GLUCOSE (AUTOMATED)2022-10-10 18:59:49 Test Item Value Reference Range Interpretation Comments POCT GLU (test code = 2778445924) 80 mg/dL 70-110 Lab Interpretation (test code = Normal 98166-4) [facility] [id number] 18:35:00 Test Item Value Reference Range Interpretation Comments Antibody Scrn (test Negative (01/02/22 1:35 code = Antibody Scrn) PM) [facility] [id number] 18:35:00 Test Item Value Reference Range Interpretation Comments ABO/Rh (test code = ABO/Rh) AB POS [facility] [id number] 18:35:00 Test Item Value Reference Range Interpretation Comments Antibody Scrn (test Negative (01/02/22 1:35 code = Antibody Scrn) PM) [facility] [id number] 18:35:00 Test Item Value Reference Range Interpretation Comments ABO/Rh (test code = ABO/Rh) AB POS [facility] [id number] 18:35:00 Test Item Value Reference Range Interpretation Comments Antibody Scrn (test Negative (01/02/22 1:35 code = Antibody Scrn) PM) [facility] [id number] 18:35:00 Test Item Value Reference Range Interpretation Comments ABO/Rh (test code = ABO/Rh) AB POS [facility] [id number] 18:35:00 Test Item Value Reference Range Interpretation Comments Antibody Scrn (test Negative (01/02/22 1:35 code = Antibody Scrn) PM) [facility] [id number] 18:35:00 Test Item Value Reference Range Interpretation Comments ABO/Rh (test code = ABO/Rh) AB POS [facility] [id number] 18:35:00 Test Item Value Reference Range Interpretation Comments Antibody Scrn (test Negative (01/02/22 1:35 code = Antibody Scrn) PM) [facility] [id number] 18:35:00 Test Item Value Reference Range Interpretation Comments ABO/Rh (test code = ABO/Rh) AB POS [facility] [id number] 18:35:00 Test Item Value Reference Range Interpretation Comments Antibody Scrn (test Negative (01/02/22 1:35 code = Antibody Scrn) PM) [facility] [employer] [id number] 18:35:00 Test Item Value Reference Range Interpretation Comments ABO/Rh (test code = ABO/Rh) AB POS [facility] [employer] [id number] 18:35:00 Test Item Value Reference Range Interpretation Comments Antibody Scrn (test Negative (01/02/22 1:35 code = Antibody Scrn) PM) [facility] [employer] [id number] 18:35:00 Test Item Value Reference Range Interpretation Comments ABO/Rh (test code = ABO/Rh) AB POS [facility] [employer] [id number] 18:35:00 Test Item Value Reference Range Interpretation Comments Antibody Scrn (test Negative (01/02/22 1:35 code = Antibody Scrn) PM) [facility] [employer] [id number] 18:35:00 Test Item Value Reference Range Interpretation Comments ABO/Rh (test code = ABO/Rh) AB POS [facility] [employer] [id number] 18:35:00 Test Item Value Reference Range Interpretation Comments Antibody Scrn (test Negative (01/02/22 1:35 code = Antibody Scrn) PM) [facility] [employer] [id number] 18:35:00 Test Item Value Reference Range Interpretation Comments ABO/Rh (test code = ABO/Rh) AB POS [facility] [employer] [id number] 18:35:00 Test Item Value Reference Range Interpretation Comments Antibody Scrn (test Negative (01/02/22 1:35 code = Antibody Scrn) PM) [facility] [employer] [id number] 18:35:00 Test Item Value Reference Range Interpretation Comments ABO/Rh (test code = ABO/Rh) AB POS [employer] [id number] 18:13:00 Test Item Value Reference Range Interpretation Comments HS Troponin I (test code = HS Troponin 156 I) [employer] [id number] 18:13:00 Test Item Value Reference Range Interpretation Comments Glucose Lvl (test code = Glucose Lvl) 237 70-99 [facility] [employer] [id number] 18:13:00 Test Item Value Reference Range Interpretation Comments BUN (test code = BUN) 46 7-22 [facility] [id number] 18:13:00 Test Item Value Reference Range Interpretation Comments Creatinine Lvl (test code = Creatinine 5.92 0.50-1.40 Lvl) [facility] [id number] 18:13:00 Test Item Value Reference Range Interpretation Comments Sodium Lvl (test code = Sodium Lvl) 134 135-145 [facility] [id number] 18:13:00 Test Item Value Reference Range Interpretation Comments Potassium Lvl (test code = Potassium 4.4 3.5-5.1 Lvl) [facility] [id number] 18:13:00 Test Item Value Reference Range Interpretation Comments Chloride Lvl (test code = Chloride Lvl) 98 95-109 [facility] [id number] 18:13:00 Test Item Value Reference Range Interpretation Comments HS Troponin I (test code = HS Troponin 156 I) [facility] [id number] 18:13:00 Test Item Value Reference Range Interpretation Comments Glucose Lvl (test code = Glucose Lvl) 237 70-99 [facility] [id number] 18:13:00 Test Item Value Reference Range Interpretation Comments BUN (test code = BUN) 46 7-22 [facility] [id number] 18:13:00 Test Item Value Reference Range Interpretation Comments Creatinine Lvl (test code = Creatinine 5.92 0.50-1.40 Lvl) [facility] [id number] 18:13:00 Test Item Value Reference Range Interpretation Comments Sodium Lvl (test code = Sodium Lvl) 134 135-145 [facility] [id number] 18:13:00 Test Item Value Reference Range Interpretation Comments Potassium Lvl (test code = Potassium 4.4 3.5-5.1 Lvl) [facility] [id number] 18:13:00 Test Item Value Reference Range Interpretation Comments Chloride Lvl (test code = Chloride Lvl) 98 95-109 [facility] [id number] 18:13:00 Test Item Value Reference Range Interpretation Comments CO2 (test code = CO2) 29 24-32 [place] [address]-08-05 18:13:00 Test Item Value Reference Range Interpretation Comments Calcium Lvl (test code = Calcium Lvl) 9.2 8.5-10.5 [address]08-05 18:13:00 Test Item Value Reference Range Interpretation Comments Total Protein (test code = Total 6.6 6.4-8.4 Protein) [address]08-05 18:13:00 Test Item Value Reference Range Interpretation Comments CO2 (test code = CO2) 29 24-32 [place] [address]-08-05 18:13:00 Test Item Value Reference Range Interpretation Comments Albumin Lvl (test code = Albumin Lvl) 3.1 3.5-5.[address]08-05 18:13:00 Test Item Value Reference Range Interpretation Comments ALT (test code = ALT) 36 See_Comment [Auto mated message] The system which ge nerated this result transmit swathi reference range : <=65. The reference range was not used to interpr et this result as deny l/abnormal. [address]08-05 18:13:00 Test Item Value Reference Range Interpretation Comments AST (test code = AST) 28 See_Comment [Auto mated message] The system which ge nerated this result transmit swathi reference range : <=37. The reference range was not used to interpr et this result as deny l/abnormal. [address]08-05 18:13:00 Test Item Value Reference Range Interpretation Comments Alk Phos (test code = Alk Phos) 231 39-136 [place] [address]-08-05 18:13:00 Test Item Value Reference Range Interpretation Comments Bili Total (test code = Bili Total) 1.0 0.2-1.[address]08-05 18:13:00 Test Item Value Reference Range Interpretation Comments AGAP (test code = AGAP) 11.4 10.0-20.0 [address]08-05 18:13:00 Test Item Value Reference Range Interpretation Comments B/C Ratio (test code = B/C Ratio) 8 1 6-25 [facility] [id number] 18:13:00 Test Item Value Reference Range Interpretation Comments Globulin (test code = Globulin) 3.5 2.7-4.2 [facility]2022-08-05 18:13:00 Test Item Value Reference Range Interpretation Comments A/G Ratio (test code = A/G Ratio) 0.9 1 0.7-1.6 [facility]2022-08-05 18:13:00 Test Item Value Reference Range Interpretation Comments eGFR (test code = eGFR) 9 [facility]2022-08-05 18:13:00 Test Item Value Reference Range Interpretation Comments Calcium Lvl (test code = Calcium Lvl) 9.2 8.5-10.5 [facility]ATDLDHBIJM8626-25-62 18:13:00 Test Item Value Reference Range Interpretation Comments WBC (test code = WBC) 4.8 3.7-10.4 [facility] HospitalTjibwihRGMHQRODDH9690-10-90 18:13:00 Test Item Value Reference Range Interpretation Comments RBC (test code = RBC) 1.93 4.70-6.10 [facility] HospitalTzmyrniIGKHJKJZIQ9956-77-75 18:13:00 Test Item Value Reference Range Interpretation Comments Hgb (test code = Hgb) 7.2 14.0-18.0 [facility] Hospit[id number] 18:13:00 Test Item Value Reference Range Interpretation Comments Hct (test code = Hct) 21.2 42.0-54.0 [facility] HospitalTxzsiqtRHYPLLGIEW9623-61-64 18:13:00 Test Item Value Reference Range Interpretation Comments MCV (test code = MCV) 110.1 80.0-94.0 [place] 152042-08-05 18:13:00 Test Item Value Reference Range Interpretation Comments MCH (test code = MCH) 37.1 pg 27.0-31.0 [facility] HospitalXluevivZZHBAJTSBY8448-35-85 18:13:00 Test Item Value Reference Range Interpretation Comments MCHC (test code = MCHC) 33.7 32.0-36.0 [place] 152042-08-05 18:13:00 Test Item Value Reference Range Interpretation Comments RDW (test code = RDW) 25.8 11.5-14.5 [facility] HospitalEzqncxqJWMWEFMPYZ8767-82-04 18:13:00 Test Item Value Reference Range Interpretation Comments Platelet (test code = Platelet) 216 133-450 [place] 152042-08-05 18:13:00 Test Item Value Reference Range Interpretation Comments MPV (test code = MPV) 8.2 7.4-10.4 [facility]2022-08-05 18:13:00 Test Item Value Reference Range Interpretation Comments Total Protein (test code = Total 6.6 6.4-8.4 Protein) [address]08-05 18:13:00 Test Item Value Reference Range Interpretation Comments PT (test code = PT) 16.9 s 12.0-14.7 [place] [address]-08-05 18:13:00 Test Item Value Reference Range Interpretation Comments INR (test code = INR) 1.39 1 0.85-1.17 [place] [address]-08-05 18:13:00 Test Item Value Reference Range Interpretation Comments PTT (test code = PTT) 35.0 s 22.9-35.8 [address]08-05 18:13:00 Test Item Value Reference Range Interpretation Comments Plt Morph (test code = Normal (01/02/22 1:13 PM) Plt Morph) [place] [address]-08-05 18:13:00 Test Item Value Reference Range Interpretation Comments Segs (test code = Segs) 76.4 45.0-75.0 [place] [address]-08-05 18:13:00 Test Item Value Reference Range Interpretation Comments Lymphocytes (test code = Lymphocytes) 14.6 20.0-40.0 [place] [address]-08-05 18:13:00 Test Item Value Reference Range Interpretation Comments Monocytes (test code = Monocytes) 7.5 2.0-12.0 [address]08-05 18:13:00 Test Item Value Reference Range Interpretation Comments Eosinophils (test code = 0.6 See_Comment [A utomated message] The Eosinophils) system which ge nerated this result tra nsmitted reference range : <=4.0. The reference r samantha was not used to int erpret this result as normal/abnormal . [place] [address]-08-05 18:13:00 Test Item Value Reference Range Interpretation Comments Basophils (test code = 0.9 See_Comment [Aut omated message] The Basophils) system which ge nerated this result tra nsmitted reference range : <=1.0. The reference r samantha was not used to int erpret this result as normal/abnormal . [address]08-05 18:13:00 Test Item Value Reference Range Interpretation Comments Neutrophils # (test code = Neutrophils 3.7 1.5-8.1 #) [address]08-05 18:13:00 Test Item Value Reference Range Interpretation Comments Albumin Lvl (test code = Albumin Lvl) 3.1 3.5-5.0 [address]08-05 18:13:00 Test Item Value Reference Range Interpretation Comments Lymphocytes # (test code = Lymphocytes 0.7 1.0-5.5 #) [address]08-05 18:13:00 Test Item Value Reference Range Interpretation Comments Monocytes # (test code 0.4 See_Comment [Aut omated message] The = Monocytes #) system which generated this result tra nsmitted reference range : <=0.8. The reference r samantha was not used to int erpret this result as normal/abnormal . [address]08-05 18:13:00 Test Item Value Reference Range Interpretation Comments Anisocyte (test code = 2+ *ABN*(01/02/22 1:13 Anisocyte) PM) [address]08-05 18:13:00 Test Item Value Reference Range Interpretation Comments Macrocyte (test code = 2+ *ABN*(01/02/22 1:13 Macrocyte) PM) [address]08-05 18:13:00 Test Item Value Reference Range Interpretation Comments ALT (test code = ALT) 36 See_Comment [Auto mated message] The system which ge nerated this result transmit swathi reference range : <=65. The reference range was not used to interpr et this result as deny l/abnormal. [address]08-05 18:13:00 Test Item Value Reference Range Interpretation Comments AST (test code = AST) 28 See_Comment [Auto mated message] The system which ge nerated this result transmit swathi reference range : <=37. The reference range was not used to interpr et this result as deny l/abnormal. [address]08-05 18:13:00 Test Item Value Reference Range Interpretation Comments Alk Phos (test code = Alk Phos) 231 39-136 [place] 074992-08-05 18:13:00 Test Item Value Reference Range Interpretation Comments Bili Total (test code = Bili Total) 1.0 0.2-1.3 [place] 074992-08-05 18:13:00 Test Item Value Reference Range Interpretation Comments AGAP (test code = AGAP) 11.4 10.0-20.0 [place] 074992-08-05 18:13:00 Test Item Value Reference Range Interpretation Comments B/C Ratio (test code = B/C Ratio) 8 1 6-25 [place] [address]-08-05 18:13:00 Test Item Value Reference Range Interpretation Comments Globulin (test code = Globulin) 3.5 2.7-4.2 [place] 074992-08-05 18:13:00 Test Item Value Reference Range Interpretation Comments A/G Ratio (test code = A/G Ratio) 0.9 1 0.7-1.6 [place] [address]-08-05 18:13:00 Test Item Value Reference Range Interpretation Comments eGFR (test code = eGFR) 9 [place] [address]-08-05 18:13:00 Test Item Value Reference Range Interpretation Comments WBC (test code = WBC) 4.8 3.7-10.4 [place] [address]-08-05 18:13:00 Test Item Value Reference Range Interpretation Comments RBC (test code = RBC) 1.93 4.70-6.10 [place] [address]-08-05 18:13:00 Test Item Value Reference Range Interpretation Comments Hgb (test code = Hgb) 7.2 14.0-18.0 [place] [address]-08-05 18:13:00 Test Item Value Reference Range Interpretation Comments Hct (test code = Hct) 21.2 42.0-54.0 [place] [address]-08-05 18:13:00 Test Item Value Reference Range Interpretation Comments MCV (test code = MCV) 110.1 80.0-94.0 [place] [address]-08-05 18:13:00 Test Item Value Reference Range Interpretation Comments MCH (test code = MCH) 37.1 pg 27.0-31.0 [facility] HospitalJzzdvdbIYHEGOPCMT7732-52-58 18:13:00 Test Item Value Reference Range Interpretation Comments MCHC (test code = MCHC) 33.7 32.0-36.0 [facility] HospitalQtvqnsgSQIGFMFMAL5979-51-48 18:13:00 Test Item Value Reference Range Interpretation Comments RDW (test code = RDW) 25.8 11.5-14.5 [facility] HospitalMmctfokCMQNETRMWH6830-59-73 18:13:00 Test Item Value Reference Range Interpretation Comments Platelet (test code = Platelet) 216 133-450 [facility] HospitalCtegmseRGCBXVAKOI8729-49-27 18:13:00 Test Item Value Reference Range Interpretation Comments MPV (test code = MPV) 8.2 7.4-10.4 [facility]OnmpvtpWAVKEQIGNV0124-67-08 18:13:00 Test Item Value Reference Range Interpretation Comments PT (test code = PT) 16.9 s 12.0-14.7 [facility] HospitalJvehzwvJYYBYBLUOG5007-36-68 18:13:00 Test Item Value Reference Range Interpretation Comments INR (test code = INR) 1.39 1 0.85-1.17 [facility] HospitalGzzmxmdQJSSVIZGHB3132-88-33 18:13:00 Test Item Value Reference Range Interpretation Comments PTT (test code = PTT) 35.0 s 22.9-35.8 [facility] HospitalPittyixRGEUPPLDJS6356-58-20 18:13:00 Test Item Value Reference Range Interpretation Comments Plt Morph (test code = Normal (01/02/22 1:13 PM) Plt Morph) [facility] HospitalAjaaqitKSDDSNIVMR1660-56-45 18:13:00 Test Item Value Reference Range Interpretation Comments Segs (test code = Segs) 76.4 45.0-75.0 [facility] HospitalKoczemkXDCCSCEMLH6524-95-54 18:13:00 Test Item Value Reference Range Interpretation Comments Lymphocytes (test code = Lymphocytes) 14.6 20.0-40.0 [place] 152042-08-05 18:13:00 Test Item Value Reference Range Interpretation Comments Monocytes (test code = Monocytes) 7.5 2.0-12.0 [facility] HospitalIlfsuslJNEPNHJEFQ0816-25-12 18:13:00 Test Item Value Reference Range Interpretation Comments Eosinophils (test code = 0.6 See_Comment [A utomated message] The Eosinophils) system which ge nerated this result tra nsmitted reference range : <=4.0. The reference r samantha was not used to int erpret this result as normal/abnormal . [facility] HospitalTczoybbQHZXDFPSVY6966-80-62 18:13:00 Test Item Value Reference Range Interpretation Comments Basophils (test code = 0.9 See_Comment [Aut omated message] The Basophils) system which ge nerated this result tra nsmitted reference range : <=1.0. The reference r samantha was not used to int erpret this result as normal/abnormal . [facility] HospitalQhjlejeJISZQVNGZD4524-82-17 18:13:00 Test Item Value Reference Range Interpretation Comments Neutrophils # (test code = Neutrophils 3.7 1.5-8.1 #) [facility] HospitalWamwptnMLRKWVTOQD9184-97-82 18:13:00 Test Item Value Reference Range Interpretation Comments Lymphocytes # (test code = Lymphocytes 0.7 1.0-5.5 #) [facility] HospitalXgusytgNERQFYNAAI6223-15-42 18:13:00 Test Item Value Reference Range Interpretation Comments Monocytes # (test code 0.4 See_Comment [Aut omated message] The = Monocytes #) system which generated this result tra nsmitted reference range : <=0.8. The reference r samantha was not used to int erpret this result as normal/abnormal . [facility] HospitalWtolbrvNKSTMHJBTV1369-69-35 18:13:00 Test Item Value Reference Range Interpretation Comments Anisocyte (test code = 2+ *ABN*(01/02/22 1:13 Anisocyte) PM) [facility]KRVUYT9544[facility]26-68 18:13:00 Test Item Value Reference Range Interpretation Comments Macrocyte (test code = 2+ *ABN*(01/02/22 1:13 Macrocyte) PM) [facility] EMAJJYA9686-08-91 18:13:00 Test Item Value Reference Range Interpretation Comments HS Troponin I (test code = HS Troponin 156 I) [facility]2022-08-05 18:13:00 Test Item Value Reference Range Interpretation Comments Glucose Lvl (test code = Glucose Lvl) 237 70-99 [facility]2022-08-05 18:13:00 Test Item Value Reference Range Interpretation Comments BUN (test code = BUN) 46 7-22 [place] [address]-08-05 18:13:00 Test Item Value Reference Range Interpretation Comments Creatinine Lvl (test code = Creatinine 5.92 0.50-1.40 Lvl) [address]08-05 18:13:00 Test Item Value Reference Range Interpretation Comments Sodium Lvl (test code = Sodium Lvl) 134 135-145 [place] [address]-08-05 18:13:00 Test Item Value Reference Range Interpretation Comments Potassium Lvl (test code = Potassium 4.4 3.5-5.1 Lvl) [address]08-05 18:13:00 Test Item Value Reference Range Interpretation Comments Chloride Lvl (test code = Chloride Lvl) 98 95-109 [address]08-05 18:13:00 Test Item Value Reference Range Interpretation Comments CO2 (test code = CO2) 29 24-32 [address]08-05 18:13:00 Test Item Value Reference Range Interpretation Comments Calcium Lvl (test code = Calcium Lvl) 9.2 8.5-10.5 [address]08-05 18:13:00 Test Item Value Reference Range Interpretation Comments Total Protein (test code = Total 6.6 6.4-8.4 Protein) [address]08-05 18:13:00 Test Item Value Reference Range Interpretation Comments Albumin Lvl (test code = Albumin Lvl) 3.1 3.5-5.0 [address]08-05 18:13:00 Test Item Value Reference Range Interpretation Comments ALT (test code = ALT) 36 See_Comment [Auto mated message] The system which ge nerated this result transmit swathi reference range : <=65. The reference range was not used to interpr et this result as deny l/abnormal. [address]08-05 18:13:00 Test Item Value Reference Range Interpretation Comments AST (test code = AST) 28 See_Comment [Auto mated message] The system which ge nerated this result transmit swathi reference range : <=37. The reference range was not used to interpr et this result as deny l/abnormal. [place] [address]-08-05 18:13:00 Test Item Value Reference Range Interpretation Comments Alk Phos (test code = Alk Phos) 231 39-136 [place] 074992-08-05 18:13:00 Test Item Value Reference Range Interpretation Comments Bili Total (test code = Bili Total) 1.0 0.2-1.3 [place] [address]-08-05 18:13:00 Test Item Value Reference Range Interpretation Comments AGAP (test code = AGAP) 11.4 10.0-20.0 [place] [address]-08-05 18:13:00 Test Item Value Reference Range Interpretation Comments B/C Ratio (test code = B/C Ratio) 8 1 6-25 [address]08-05 18:13:00 Test Item Value Reference Range Interpretation Comments Globulin (test code = Globulin) 3.5 2.7-4.2 [place] [address]-08-05 18:13:00 Test Item Value Reference Range Interpretation Comments A/G Ratio (test code = A/G Ratio) 0.9 1 0.7-1.6 [address]08-05 18:13:00 Test Item Value Reference Range Interpretation Comments eGFR (test code = eGFR) 9 [place] [address]-08-05 18:13:00 Test Item Value Reference Range Interpretation Comments WBC (test code = WBC) 4.8 3.7-10.4 [place] [address]-08-05 18:13:00 Test Item Value Reference Range Interpretation Comments RBC (test code = RBC) 1.93 4.70-6.10 [place] [address]-08-05 18:13:00 Test Item Value Reference Range Interpretation Comments Hgb (test code = Hgb) 7.2 14.0-18.0 [address]08-05 18:13:00 Test Item Value Reference Range Interpretation Comments Hct (test code = Hct) 21.2 42.0-54.0 [place] [address]-08-05 18:13:00 Test Item Value Reference Range Interpretation Comments MCV (test code = MCV) 110.1 80.0-94.0 [place] [address]-08-05 18:13:00 Test Item Value Reference Range Interpretation Comments MCH (test code = MCH) 37.1 pg 27.0-31.0 [place] [address]-08-05 18:13:00 Test Item Value Reference Range Interpretation Comments MCHC (test code = MCHC) 33.7 32.0-36.0 [place] [address]-08-05 18:13:00 Test Item Value Reference Range Interpretation Comments RDW (test code = RDW) 25.8 11.5-14.5 [place] 152042-08-05 18:13:00 Test Item Value Reference Range Interpretation Comments Platelet (test code = Platelet) 216 133-450 [facility] HospitalMobjiznBKQEIQIJOY2955-66-01 18:13:00 Test Item Value Reference Range Interpretation Comments MPV (test code = MPV) 8.2 7.4-10.4 [place] [address]-08-05 18:13:00 Test Item Value Reference Range Interpretation Comments PT (test code = PT) 16.9 s 12.0-14.7 [place] [address]-08-05 18:13:00 Test Item Value Reference Range Interpretation Comments INR (test code = INR) 1.39 1 0.85-1.17 [place] 152042-08-05 18:13:00 Test Item Value Reference Range Interpretation Comments PTT (test code = PTT) 35.0 s 22.9-35.8 [place] [address]-08-05 18:13:00 Test Item Value Reference Range Interpretation Comments Plt Morph (test code = Normal (01/02/22 1:13 PM) Plt Morph) [place] [address]-08-05 18:13:00 Test Item Value Reference Range Interpretation Comments Segs (test code = Segs) 76.4 45.0-75.0 [place] 152042-08-05 18:13:00 Test Item Value Reference Range Interpretation Comments Lymphocytes (test code = Lymphocytes) 14.6 20.0-40.0 [place] [address]-08-05 18:13:00 Test Item Value Reference Range Interpretation Comments Monocytes (test code = Monocytes) 7.5 2.0-12.0 [place] [address]-08-05 18:13:00 Test Item Value Reference Range Interpretation Comments Eosinophils (test code = 0.6 See_Comment [A utomated message] The Eosinophils) system which ge nerated this result tra nsmitted reference range : <=4.0. The reference r samantha was not used to int erpret this result as normal/abnormal . [facility] HospitalTtagaboZRHTOJWMDD5606-19-01 18:13:00 Test Item Value Reference Range Interpretation Comments Basophils (test code = 0.9 See_Comment [Aut omated message] The Basophils) system which ge nerated this result tra nsmitted reference range : <=1.0. The reference r samantha was not used to int erpret this result as normal/abnormal . [facility] HospitalHqouqydMKMZHMODFL5011-22-68 18:13:00 Test Item Value Reference Range Interpretation Comments Neutrophils # (test code = Neutrophils 3.7 1.5-8.1 #) [facility] HospitalPmfzvhlKOGJCEPRHQ1564-90-97 18:13:00 Test Item Value Reference Range Interpretation Comments Lymphocytes # (test code = Lymphocytes 0.7 1.0-5.5 #) [facility] HospitalMzzwvojPKAIEXMKCL7139-83-71 18:13:00 Test Item Value Reference Range Interpretation Comments Monocytes # (test code 0.4 See_Comment [Aut omated message] The = Monocytes #) system which generated this result tra nsmitted reference range : <=0.8. The reference r samantha was not used to int erpret this result as normal/abnormal . [facility] HospitalFxlwgolZTYNKKQSVP8789-62-94 18:13:00 Test Item Value Reference Range Interpretation Comments Anisocyte (test code = 2+ *ABN*(01/02/22 1:13 Anisocyte) PM) [facility] HospitalOsoblcrDIFNRLYBXH0197-07-40 18:13:00 Test Item Value Reference Range Interpretation Comments Macrocyte (test code = 2+ *ABN*(01/02/22 1:13 Macrocyte) PM) [facility] BGWPSKI2483-46-47 18:13:00 Test Item Value Reference Range Interpretation Comments HS Troponin I (test code = HS Troponin 156 I) [facility] HospitalEquals6 HOVKA6045-16-94 18:13:00 Test Item Value Reference Range Interpretation Comments Glucose Lvl (test code = Glucose Lvl) 237 70-99 [facility]2022-08-05 18:13:00 Test Item Value Reference Range Interpretation Comments BUN (test code = BUN) 46 7-22 [facility]2022-08-05 18:13:00 Test Item Value Reference Range Interpretation Comments Creatinine Lvl (test code = Creatinine 5.92 0.50-1.40 Lvl) [place] [address]-08-05 18:13:00 Test Item Value Reference Range Interpretation Comments Sodium Lvl (test code = Sodium Lvl) 134 135-145 [place] 074992-08-05 18:13:00 Test Item Value Reference Range Interpretation Comments Potassium Lvl (test code = Potassium 4.4 3.5-5.1 Lvl) [place] 074992-08-05 18:13:00 Test Item Value Reference Range Interpretation Comments Chloride Lvl (test code = Chloride Lvl) 98 95-109 [place] [address]-08-05 18:13:00 Test Item Value Reference Range Interpretation Comments CO2 (test code = CO2) 29 24-32 [place] 074992-08-05 18:13:00 Test Item Value Reference Range Interpretation Comments Calcium Lvl (test code = Calcium Lvl) 9.2 8.5-10.5 [place] 074992-08-05 18:13:00 Test Item Value Reference Range Interpretation Comments Total Protein (test code = Total 6.6 6.4-8.4 Protein) [place] 074992-08-05 18:13:00 Test Item Value Reference Range Interpretation Comments Albumin Lvl (test code = Albumin Lvl) 3.1 3.5-5.0 [place] 074992-08-05 18:13:00 Test Item Value Reference Range Interpretation Comments ALT (test code = ALT) 36 See_Comment [Auto mated message] The system which ge nerated this result transmit swathi reference range : <=65. The reference range was not used to interpr et this result as deny l/abnormal. [place] 074992-08-05 18:13:00 Test Item Value Reference Range Interpretation Comments AST (test code = AST) 28 See_Comment [Auto mated message] The system which ge nerated this result transmit swathi reference range : <=37. The reference range was not used to interpr et this result as deny l/abnormal. [place] 074992-08-05 18:13:00 Test Item Value Reference Range Interpretation Comments Alk Phos (test code = Alk Phos) 231 39-136 [place] 074992-08-05 18:13:00 Test Item Value Reference Range Interpretation Comments Bili Total (test code = Bili Total) 1.0 0.2-1.3 [place] [address]-08-05 18:13:00 Test Item Value Reference Range Interpretation Comments AGAP (test code = AGAP) 11.4 10.0-20.0 [place] [address]-08-05 18:13:00 Test Item Value Reference Range Interpretation Comments B/C Ratio (test code = B/C Ratio) 8 1 6-25 [address]08-05 18:13:00 Test Item Value Reference Range Interpretation Comments Globulin (test code = Globulin) 3.5 2.7-4.2 [place] [address]-08-05 18:13:00 Test Item Value Reference Range Interpretation Comments A/G Ratio (test code = A/G Ratio) 0.9 1 0.7-1.6 [address]08-05 18:13:00 Test Item Value Reference Range Interpretation Comments eGFR (test code = eGFR) 9 [place] [address]-08-05 18:13:00 Test Item Value Reference Range Interpretation Comments WBC (test code = WBC) 4.8 3.7-10.4 [place] [address]-08-05 18:13:00 Test Item Value Reference Range Interpretation Comments RBC (test code = RBC) 1.93 4.70-6.10 [place] [address]-08-05 18:13:00 Test Item Value Reference Range Interpretation Comments Hgb (test code = Hgb) 7.2 14.0-18.0 [place] [address]-08-05 18:13:00 Test Item Value Reference Range Interpretation Comments Hct (test code = Hct) 21.2 42.0-54.0 [address]08-05 18:13:00 Test Item Value Reference Range Interpretation Comments MCV (test code = MCV) 110.1 80.0-94.0 [place] [address]-08-05 18:13:00 Test Item Value Reference Range Interpretation Comments MCH (test code = MCH) 37.1 pg 27.0-31.0 [place] [address]-08-05 18:13:00 Test Item Value Reference Range Interpretation Comments MCHC (test code = MCHC) 33.7 32.0-36.0 [place] [address]-08-05 18:13:00 Test Item Value Reference Range Interpretation Comments RDW (test code = RDW) 25.8 11.5-14.5 [place] [address]-08-05 18:13:00 Test Item Value Reference Range Interpretation Comments Platelet (test code = Platelet) 216 133-450 [facility] HospitalFiqbskjPXTXRVUHIE3926-91-23 18:13:00 Test Item Value Reference Range Interpretation Comments MPV (test code = MPV) 8.2 7.4-10.4 [place] [address]-08-05 18:13:00 Test Item Value Reference Range Interpretation Comments PT (test code = PT) 16.9 s 12.0-14.7 [place] [address]-08-05 18:13:00 Test Item Value Reference Range Interpretation Comments INR (test code = INR) 1.39 1 0.85-1.17 [place] 152042-08-05 18:13:00 Test Item Value Reference Range Interpretation Comments PTT (test code = PTT) 35.0 s 22.9-35.8 [place] [address]-08-05 18:13:00 Test Item Value Reference Range Interpretation Comments Plt Morph (test code = Normal (01/02/22 1:13 PM) Plt Morph) [facility] HospitalAepaqpeOHSIEWTWSM3557-68-33 18:13:00 Test Item Value Reference Range Interpretation Comments Segs (test code = Segs) 76.4 45.0-75.0 [place] [address]-08-05 18:13:00 Test Item Value Reference Range Interpretation Comments Lymphocytes (test code = Lymphocytes) 14.6 20.0-40.0 [place] [address]-08-05 18:13:00 Test Item Value Reference Range Interpretation Comments Monocytes (test code = Monocytes) 7.5 2.0-12.0 [place] [address]-08-05 18:13:00 Test Item Value Reference Range Interpretation Comments Eosinophils (test code = 0.6 See_Comment [A utomated message] The Eosinophils) system which ge nerated this result tra nsmitted reference range : <=4.0. The reference r samantha was not used to int erpret this result as normal/abnormal . [facility]LblmglyLIKHBUFFNI3336-12-08 18:13:00 Test Item Value Reference Range Interpretation Comments Basophils (test code = 0.9 See_Comment [Aut omated message] The Basophils) system which ge nerated this result tra nsmitted reference range : <=1.0. The reference r samantha was not used to int erpret this result as normal/abnormal . [facility] HospitalHgmzhgmIPUNHCNGHR4872-37-20 18:13:00 Test Item Value Reference Range Interpretation Comments Neutrophils # (test code = Neutrophils 3.7 1.5-8.1 #) [facility] CenterWqfnmuhRZGKCHFIEZ1959-95-86 18:13:00 Test Item Value Reference Range Interpretation Comments Lymphocytes # (test code = Lymphocytes 0.7 1.0-5.5 #) [facility] HospitalQofabvwGMWCZIAXCL6943-83-65 18:13:00 Test Item Value Reference Range Interpretation Comments Monocytes # (test code 0.4 See_Comment [Aut omated message] The = Monocytes #) system which generated this result tra nsmitted reference range : <=0.8. The reference r samantha was not used to int erpret this result as normal/abnormal . [facility] CenterQfrltmnBDIVGRCVWP1249-91-30 18:13:00 Test Item Value Reference Range Interpretation Comments Anisocyte (test code = 2+ *ABN*(01/02/22 1:13 Anisocyte) PM) [facility] CenterLcppwkjNNAMMVYYIZ7061-07-95 18:13:00 Test Item Value Reference Range Interpretation Comments Macrocyte (test code = 2+ *ABN*(01/02/22 1:13 Macrocyte) PM) [facility] HFUMGYH2311-10-01 18:13:00 Test Item Value Reference Range Interpretation Comments HS Troponin I (test code = HS Troponin 156 I) [facility] HospitalCHEM CYDNY6358-11-20 18:13:00 Test Item Value Reference Range Interpretation Comments Glucose Lvl (test code = Glucose Lvl) 237 70-99 [facility] SXQQF4319-09-58 18:13:00 Test Item Value Reference Range Interpretation Comments BUN (test code = BUN) 46 7-22 [facility]Equals[facility] LVGMV4506-65-24 18:13:00 Test Item Value Reference Range Interpretation Comments Creatinine Lvl (test code = Creatinine 5.92 0.50-1.40 Lvl) [address]08-05 18:13:00 Test Item Value Reference Range Interpretation Comments Sodium Lvl (test code = Sodium Lvl) 134 135-145 [place] 074992-08-05 18:13:00 Test Item Value Reference Range Interpretation Comments Potassium Lvl (test code = Potassium 4.4 3.5-5.1 Lvl) [place] [address]-08-05 18:13:00 Test Item Value Reference Range Interpretation Comments Chloride Lvl (test code = Chloride Lvl) 98 95-109 [address]08-05 18:13:00 Test Item Value Reference Range Interpretation Comments CO2 (test code = CO2) 29 24-32 [address]08-05 18:13:00 Test Item Value Reference Range Interpretation Comments Calcium Lvl (test code = Calcium Lvl) 9.2 8.5-10.5 [place] [address]-08-05 18:13:00 Test Item Value Reference Range Interpretation Comments Total Protein (test code = Total 6.6 6.4-8.4 Protein) [address]08-05 18:13:00 Test Item Value Reference Range Interpretation Comments Albumin Lvl (test code = Albumin Lvl) 3.1 3.5-5.0 [place] [address]-08-05 18:13:00 Test Item Value Reference Range Interpretation Comments ALT (test code = ALT) 36 See_Comment [Auto mated message] The system which ge nerated this result transmit swathi reference range : <=65. The reference range was not used to interpr et this result as deny l/abnormal. [place] [address]-08-05 18:13:00 Test Item Value Reference Range Interpretation Comments AST (test code = AST) 28 See_Comment [Auto mated message] The system which ge nerated this result transmit swathi reference range : <=37. The reference range was not used to interpr et this result as deny l/abnormal. [address]08-05 18:13:00 Test Item Value Reference Range Interpretation Comments Alk Phos (test code = Alk Phos) 231 39-136 [place] [address]-08-05 18:13:00 Test Item Value Reference Range Interpretation Comments Bili Total (test code = Bili Total) 1.0 0.2-1.3 [place] [address]-08-05 18:13:00 Test Item Value Reference Range Interpretation Comments AGAP (test code = AGAP) 11.4 10.0-20.0 [place] 074992-08-05 18:13:00 Test Item Value Reference Range Interpretation Comments B/C Ratio (test code = B/C Ratio) 8 1 6-25 [place] [address]-08-05 18:13:00 Test Item Value Reference Range Interpretation Comments Globulin (test code = Globulin) 3.5 2.7-4.2 [place] [address]-08-05 18:13:00 Test Item Value Reference Range Interpretation Comments A/G Ratio (test code = A/G Ratio) 0.9 1 0.7-1.6 [place] [address]-08-05 18:13:00 Test Item Value Reference Range Interpretation Comments eGFR (test code = eGFR) 9 [place] [address]-08-05 18:13:00 Test Item Value Reference Range Interpretation Comments WBC (test code = WBC) 4.8 3.7-10.4 [place] [address]-08-05 18:13:00 Test Item Value Reference Range Interpretation Comments RBC (test code = RBC) 1.93 4.70-6.10 [place] [address]-08-05 18:13:00 Test Item Value Reference Range Interpretation Comments Hgb (test code = Hgb) 7.2 14.0-18.0 [place] [address]-08-05 18:13:00 Test Item Value Reference Range Interpretation Comments Hct (test code = Hct) 21.2 42.0-54.0 [place] [address]-08-05 18:13:00 Test Item Value Reference Range Interpretation Comments MCV (test code = MCV) 110.1 80.0-94.0 [place] [address]-08-05 18:13:00 Test Item Value Reference Range Interpretation Comments MCH (test code = MCH) 37.1 pg 27.0-31.0 [place] [address]-08-05 18:13:00 Test Item Value Reference Range Interpretation Comments MCHC (test code = MCHC) 33.7 32.0-36.0 [facility] HospitalPacoaymTHRCMMJYML1669-89-43 18:13:00 Test Item Value Reference Range Interpretation Comments RDW (test code = RDW) 25.8 11.5-14.5 [facility] HospitalSktnnfxHJLYKBLREU0606-40-55 18:13:00 Test Item Value Reference Range Interpretation Comments Platelet (test code = Platelet) 216 133-450 [facility] HospitalDqbwwjgUIUKJTZPHS0382-93-77 18:13:00 Test Item Value Reference Range Interpretation Comments MPV (test code = MPV) 8.2 7.4-10.4 [place] 152042-08-05 18:13:00 Test Item Value Reference Range Interpretation Comments PT (test code = PT) 16.9 s 12.0-14.7 [place] [address]-08-05 18:13:00 Test Item Value Reference Range Interpretation Comments INR (test code = INR) 1.39 1 0.85-1.17 [place] 152042-08-05 18:13:00 Test Item Value Reference Range Interpretation Comments PTT (test code = PTT) 35.0 s 22.9-35.8 [place] [address]-08-05 18:13:00 Test Item Value Reference Range Interpretation Comments Plt Morph (test code = Normal (01/02/22 1:13 PM) Plt Morph) [place] 152042-08-05 18:13:00 Test Item Value Reference Range Interpretation Comments Segs (test code = Segs) 76.4 45.0-75.0 [place] 152042-08-05 18:13:00 Test Item Value Reference Range Interpretation Comments Lymphocytes (test code = Lymphocytes) 14.6 20.0-40.0 [place] [address]-08-05 18:13:00 Test Item Value Reference Range Interpretation Comments Monocytes (test code = Monocytes) 7.5 2.0-12.0 [place] [address]-08-05 18:13:00 Test Item Value Reference Range Interpretation Comments Eosinophils (test code = 0.6 See_Comment [A utomated message] The Eosinophils) system which ge nerated this result tra nsmitted reference range : <=4.0. The reference r samantha was not used to int erpret this result as normal/abnormal . [facility] HospitalSdjdsclYADGBRKXKE4407-45-28 18:13:00 Test Item Value Reference Range Interpretation Comments Basophils (test code = 0.9 See_Comment [Aut omated message] The Basophils) system which ge nerated this result tra nsmitted reference range : <=1.0. The reference r samantha was not used to int erpret this result as normal/abnormal . [facility] HospitalZinfshtGCJIFOMIJW6920-10-98 18:13:00 Test Item Value Reference Range Interpretation Comments Neutrophils # (test code = Neutrophils 3.7 1.5-8.1 #) [facility] HospitalVbglecvMUYVINXDCW8149-05-39 18:13:00 Test Item Value Reference Range Interpretation Comments Lymphocytes # (test code = Lymphocytes 0.7 1.0-5.5 #) [facility] HospitalOrmtasdNUTZDLQHRD9161-35-80 18:13:00 Test Item Value Reference Range Interpretation Comments Monocytes # (test code 0.4 See_Comment [Aut omated message] The = Monocytes #) system which generated this result tra nsmitted reference range : <=0.8. The reference r samantha was not used to int erpret this result as normal/abnormal . [facility]WixvevgNHXMXGVWUV3048-98-08 18:13:00 Test Item Value Reference Range Interpretation Comments Anisocyte (test code = 2+ *ABN*(01/02/22 1:13 Anisocyte) PM) [facility] HospitalHvyioewGTGEDEBQAF4142-71-41 18:13:00 Test Item Value Reference Range Interpretation Comments Macrocyte (test code = 2+ *ABN*(01/02/22 1:13 Macrocyte) PM) [facility] [id number] 18:13:00 Test Item Value Reference Range Interpretation Comments HS Troponin I (test code = HS Troponin 156 I) [facility] [id number] 18:13:00 Test Item Value Reference Range Interpretation Comments Glucose Lvl (test code = Glucose Lvl) 237 70-99 [facility] [id number] 18:13:00 Test Item Value Reference Range Interpretation Comments BUN (test code = BUN) 46 7-22 [facility] [id number] 18:13:00 Test Item Value Reference Range Interpretation Comments Creatinine Lvl (test code = Creatinine 5.92 0.50-1.40 Lvl) [place] [address]-08-05 18:13:00 Test Item Value Reference Range Interpretation Comments Sodium Lvl (test code = Sodium Lvl) 134 135-145 [place] 074992-08-05 18:13:00 Test Item Value Reference Range Interpretation Comments Potassium Lvl (test code = Potassium 4.4 3.5-5.1 Lvl) [address]08-05 18:13:00 Test Item Value Reference Range Interpretation Comments Chloride Lvl (test code = Chloride Lvl) 98 95-109 [address]08-05 18:13:00 Test Item Value Reference Range Interpretation Comments CO2 (test code = CO2) 29 24-32 [address]08-05 18:13:00 Test Item Value Reference Range Interpretation Comments Calcium Lvl (test code = Calcium Lvl) 9.2 8.5-10.5 [address]08-05 18:13:00 Test Item Value Reference Range Interpretation Comments Total Protein (test code = Total 6.6 6.4-8.4 Protein) [address]08-05 18:13:00 Test Item Value Reference Range Interpretation Comments Albumin Lvl (test code = Albumin Lvl) 3.1 3.5-5.0 [place] [address]-08-05 18:13:00 Test Item Value Reference Range Interpretation Comments ALT (test code = ALT) 36 See_Comment [Auto mated message] The system which ge nerated this result transmit swathi reference range : <=65. The reference range was not used to interpr et this result as deny l/abnormal. [place] [address]-08-05 18:13:00 Test Item Value Reference Range Interpretation Comments AST (test code = AST) 28 See_Comment [Auto mated message] The system which ge nerated this result transmit swathi reference range : <=37. The reference range was not used to interpr et this result as deny l/abnormal. [place] [address]-08-05 18:13:00 Test Item Value Reference Range Interpretation Comments Alk Phos (test code = Alk Phos) 231 39-136 [place] [address]-08-05 18:13:00 Test Item Value Reference Range Interpretation Comments Bili Total (test code = Bili Total) 1.0 0.2-1.3 [place] [address]-08-05 18:13:00 Test Item Value Reference Range Interpretation Comments AGAP (test code = AGAP) 11.4 10.0-20.0 [place] [address]-08-05 18:13:00 Test Item Value Reference Range Interpretation Comments B/C Ratio (test code = B/C Ratio) 8 1 6-25 [address]08-05 18:13:00 Test Item Value Reference Range Interpretation Comments Globulin (test code = Globulin) 3.5 2.7-4.2 [place] [address]-08-05 18:13:00 Test Item Value Reference Range Interpretation Comments A/G Ratio (test code = A/G Ratio) 0.9 1 0.7-1.6 [address]08-05 18:13:00 Test Item Value Reference Range Interpretation Comments eGFR (test code = eGFR) 9 [place] [address]-08-05 18:13:00 Test Item Value Reference Range Interpretation Comments WBC (test code = WBC) 4.8 3.7-10.4 [place] [address]-08-05 18:13:00 Test Item Value Reference Range Interpretation Comments RBC (test code = RBC) 1.93 4.70-6.10 [place] [address]-08-05 18:13:00 Test Item Value Reference Range Interpretation Comments Hgb (test code = Hgb) 7.2 14.0-18.0 [place] [address]-08-05 18:13:00 Test Item Value Reference Range Interpretation Comments Hct (test code = Hct) 21.2 42.0-54.0 [place] [address]-08-05 18:13:00 Test Item Value Reference Range Interpretation Comments MCV (test code = MCV) 110.1 80.0-94.0 [place] [address]-08-05 18:13:00 Test Item Value Reference Range Interpretation Comments MCH (test code = MCH) 37.1 pg 27.0-31.0 [place] [address]-08-05 18:13:00 Test Item Value Reference Range Interpretation Comments MCHC (test code = MCHC) 33.7 32.0-36.0 [place] [address]-08-05 18:13:00 Test Item Value Reference Range Interpretation Comments RDW (test code = RDW) 25.8 11.5-14.5 [place] [address]-08-05 18:13:00 Test Item Value Reference Range Interpretation Comments Platelet (test code = Platelet) 216 133-450 [place] [address]-08-05 18:13:00 Test Item Value Reference Range Interpretation Comments MPV (test code = MPV) 8.2 7.4-10.4 [place] [address]-08-05 18:13:00 Test Item Value Reference Range Interpretation Comments PT (test code = PT) 16.9 s 12.0-14.7 [address]08-05 18:13:00 Test Item Value Reference Range Interpretation Comments INR (test code = INR) 1.39 1 0.85-1.17 [address]08-05 18:13:00 Test Item Value Reference Range Interpretation Comments PTT (test code = PTT) 35.0 s 22.9-35.8 [place] [address]-08-05 18:13:00 Test Item Value Reference Range Interpretation Comments Plt Morph (test code = Normal (01/02/22 1:13 PM) Plt Morph) [address]08-05 18:13:00 Test Item Value Reference Range Interpretation Comments Segs (test code = Segs) 76.4 45.0-75.0 [place] [address]-08-05 18:13:00 Test Item Value Reference Range Interpretation Comments Lymphocytes (test code = Lymphocytes) 14.6 20.0-40.0 [place] [address]-08-05 18:13:00 Test Item Value Reference Range Interpretation Comments Monocytes (test code = Monocytes) 7.5 2.0-12.0 [address]08-05 18:13:00 Test Item Value Reference Range Interpretation Comments Eosinophils (test code = 0.6 See_Comment [A utomated message] The Eosinophils) system which ge nerated this result tra nsmitted reference range : <=4.0. The reference r samantha was not used to int erpret this result as normal/abnormal . [place] [address]-08-05 18:13:00 Test Item Value Reference Range Interpretation Comments Basophils (test code = 0.9 See_Comment [Aut omated message] The Basophils) system which ge nerated this result tra nsmitted reference range : <=1.0. The reference r samantha was not used to int erpret this result as normal/abnormal . [facility] HospitalZvadnytXEVBCCJSJJ2035-21-92 18:13:00 Test Item Value Reference Range Interpretation Comments Neutrophils # (test code = Neutrophils 3.7 1.5-8.1 #) [facility] HospitalRyqltuzYLVYPQUDEZ8374-38-21 18:13:00 Test Item Value Reference Range Interpretation Comments Lymphocytes # (test code = Lymphocytes 0.7 1.0-5.5 #) [facility] HospitalBmkzheoYETGIBRCNL2365-77-73 18:13:00 Test Item Value Reference Range Interpretation Comments Monocytes # (test code 0.4 See_Comment [Aut omated message] The = Monocytes #) system which generated this result tra nsmitted reference range : <=0.8. The reference r samantha was not used to int erpret this result as normal/abnormal . [facility] HospitalRcpanueUAVTWSYTDU3006-04-87 18:13:00 Test Item Value Reference Range Interpretation Comments Anisocyte (test code = 2+ *ABN*(01/02/22 1:13 Anisocyte) PM) [facility] HospitalCgzbzrlETHZVSVQSR7980-25-26 18:13:00 Test Item Value Reference Range Interpretation Comments Macrocyte (test code = 2+ *ABN*(01/02/22 1:13 Macrocyte) PM) [facility] [id number] 18:13:00 Test Item Value Reference Range Interpretation Comments HS Troponin I (test code = HS Troponin 156 I) [facility] [id number] 18:13:00 Test Item Value Reference Range Interpretation Comments Glucose Lvl (test code = Glucose Lvl) 237 70-99 [facility] [id number] 18:13:00 Test Item Value Reference Range Interpretation Comments BUN (test code = BUN) 46 7-22 [facility]2022-08-05 18:13:00 Test Item Value Reference Range Interpretation Comments Creatinine Lvl (test code = Creatinine 5.92 0.50-1.40 Lvl) [facility]2022-08-05 18:13:00 Test Item Value Reference Range Interpretation Comments Sodium Lvl (test code = Sodium Lvl) 134 135-145 [place] 074992-08-05 18:13:00 Test Item Value Reference Range Interpretation Comments Potassium Lvl (test code = Potassium 4.4 3.5-5.1 Lvl) [place] 0[address]992-08-05 18:13:00 Test Item Value Reference Range Interpretation Comments Chloride Lvl (test code = Chloride Lvl) 98 95-109 [place] 074992-08-05 18:13:00 Test Item Value Reference Range Interpretation Comments CO2 (test code = CO2) 29 24-32 [place] 074992-08-05 18:13:00 Test Item Value Reference Range Interpretation Comments Calcium Lvl (test code = Calcium Lvl) 9.2 8.5-10.5 [place] 074992-08-05 18:13:00 Test Item Value Reference Range Interpretation Comments Total Protein (test code = Total 6.6 6.4-8.4 Protein) [place] 0[address]992-08-05 18:13:00 Test Item Value Reference Range Interpretation Comments Albumin Lvl (test code = Albumin Lvl) 3.1 3.5-5.0 [facility] [id number] 18:13:00 Test Item Value Reference Range Interpretation Comments ALT (test code = ALT) 36 See_Comment [Auto mated message] The system which ge nerated this result transmit swathi reference range : <=65. The reference range was not used to interpr et this result as deny l/abnormal. [facility] [id number] 18:13:00 Test Item Value Reference Range Interpretation Comments AST (test code = AST) 28 See_Comment [Auto mated message] The system which ge nerated this result transmit swathi reference range : <=37. The reference range was not used to interpr et this result as deny l/abnormal. [facility] [id number] 18:13:00 Test Item Value Reference Range Interpretation Comments Alk Phos (test code = Alk Phos) 231 39-136 [facility] [id number] 18:13:00 Test Item Value Reference Range Interpretation Comments Bili Total (test code = Bili Total) 1.0 0.2-1.3 [address]08-05 18:13:00 Test Item Value Reference Range Interpretation Comments AGAP (test code = AGAP) 11.4 10.0-20.0 [address]08-05 18:13:00 Test Item Value Reference Range Interpretation Comments B/C Ratio (test code = B/C Ratio) 8 1 6-25 [address]08-05 18:13:00 Test Item Value Reference Range Interpretation Comments Globulin (test code = Globulin) 3.5 2.7-4.[address]08-05 18:13:00 Test Item Value Reference Range Interpretation Comments A/G Ratio (test code = A/G Ratio) 0.9 1 0.7-1.6 [address]08-05 18:13:00 Test Item Value Reference Range Interpretation Comments eGFR (test code = eGFR) 9 [place] 152042-08-05 18:13:00 Test Item Value Reference Range Interpretation Comments WBC (test code = WBC) 4.8 3.7-10.4 [address]08-05 18:13:00 Test Item Value Reference Range Interpretation Comments RBC (test code = RBC) 1.93 4.70-6.10 [place] [address]-08-05 18:13:00 Test Item Value Reference Range Interpretation Comments Hgb (test code = Hgb) 7.2 14.0-18.0 [place] [address]-08-05 18:13:00 Test Item Value Reference Range Interpretation Comments Hct (test code = Hct) 21.2 42.0-54.0 [address]08-05 18:13:00 Test Item Value Reference Range Interpretation Comments MCV (test code = MCV) 110.1 80.0-94.0 [place] [address]-08-05 18:13:00 Test Item Value Reference Range Interpretation Comments MCH (test code = MCH) 37.1 pg 27.0-31.0 [place] [address]-08-05 18:13:00 Test Item Value Reference Range Interpretation Comments MCHC (test code = MCHC) 33.7 32.0-36.0 [place] [address]-08-05 18:13:00 Test Item Value Reference Range Interpretation Comments RDW (test code = RDW) 25.8 11.5-14.5 [place] [address]-08-05 18:13:00 Test Item Value Reference Range Interpretation Comments Platelet (test code = Platelet) 216 133-450 [place] 152042-08-05 18:13:00 Test Item Value Reference Range Interpretation Comments MPV (test code = MPV) 8.2 7.4-10.4 [place] [address]-08-05 18:13:00 Test Item Value Reference Range Interpretation Comments PT (test code = PT) 16.9 s 12.0-14.7 [place] [address]-08-05 18:13:00 Test Item Value Reference Range Interpretation Comments INR (test code = INR) 1.39 1 0.85-1.17 [place] [address]-08-05 18:13:00 Test Item Value Reference Range Interpretation Comments PTT (test code = PTT) 35.0 s 22.9-35.8 [place] [address]-08-05 18:13:00 Test Item Value Reference Range Interpretation Comments Plt Morph (test code = Normal (01/02/22 1:13 PM) Plt Morph) [facility] HospitalKiroabsIDQJHMIPIJ6552-91-61 18:13:00 Test Item Value Reference Range Interpretation Comments Segs (test code = Segs) 76.4 45.0-75.0 [place] [address]-08-05 18:13:00 Test Item Value Reference Range Interpretation Comments Lymphocytes (test code = Lymphocytes) 14.6 20.0-40.0 [place] [address]-08-05 18:13:00 Test Item Value Reference Range Interpretation Comments Monocytes (test code = Monocytes) 7.5 2.0-12.0 [place] [address]-08-05 18:13:00 Test Item Value Reference Range Interpretation Comments Eosinophils (test code = 0.6 See_Comment [A utomated message] The Eosinophils) system which ge nerated this result tra nsmitted reference range : <=4.0. The reference r samantha was not used to int erpret this result as normal/abnormal . [facility] HospitalZtxoxnyLGAPBCZHBI2914-68-15 18:13:00 Test Item Value Reference Range Interpretation Comments Basophils (test code = 0.9 See_Comment [Aut omated message] The Basophils) system which ge nerated this result tra nsmitted reference range : <=1.0. The reference r samantha was not used to int erpret this result as normal/abnormal . [facility] HospitalEdmfaucKPJBNFSSCQ5984-87-66 18:13:00 Test Item Value Reference Range Interpretation Comments Neutrophils # (test code = Neutrophils 3.7 1.5-8.1 #) [facility]SBKMNFM9720[facility]60-[facility] 18:13:00 Test Item Value Reference Range Interpretation Comments Lymphocytes # (test code = Lymphocytes 0.7 1.0-5.5 #) [facility] CenterMfqhlvoFTQWXCBFHL3978-34-78 18:13:00 Test Item Value Reference Range Interpretation Comments Monocytes # (test code 0.4 See_Comment [Aut omated message] The = Monocytes #) system which generated this result tra nsmitted reference range : <=0.8. The reference r samantha was not used to int erpret this result as normal/abnormal . [facility] HospitalMdtxkvrGIGSOQYJZL6336-75-99 18:13:00 Test Item Value Reference Range Interpretation Comments Anisocyte (test code = 2+ *ABN*(01/02/22 1:13 Anisocyte) PM) [facility] CenterTwwworaPPYJBROXYW5035-69-62 18:13:00 Test Item Value Reference Range Interpretation Comments Macrocyte (test code = 2+ *ABN*(01/02/22 1:13 Macrocyte) PM) [facility] [id number] 18:13:00 Test Item Value Reference Range Interpretation Comments HS Troponin I (test code = HS Troponin 156 I) [facility] [id number] 18:13:00 Test Item Value Reference Range Interpretation Comments Glucose Lvl (test code = Glucose Lvl) 237 70-99 [facility] [id number] 18:13:00 Test Item Value Reference Range Interpretation Comments BUN (test code = BUN) 46 7-22 [facility] [id number] 18:13:00 Test Item Value Reference Range Interpretation Comments Creatinine Lvl (test code = Creatinine 5.92 0.50-1.40 Lvl) [facility] [id number] 18:13:00 Test Item Value Reference Range Interpretation Comments Sodium Lvl (test code = Sodium Lvl) 134 135-145 [place] 074992-08-05 18:13:00 Test Item Value Reference Range Interpretation Comments Potassium Lvl (test code = Potassium 4.4 3.5-5.1 Lvl) [place] [address]992-08-05 18:13:00 Test Item Value Reference Range Interpretation Comments Chloride Lvl (test code = Chloride Lvl) 98 95-109 [facility] HospitalBueno IncDEVIN VILLE [id number] 18:13:00 Test Item Value Reference Range Interpretation Comments CO2 (test code = CO2) 29 24-32 [place] [address]-08-05 18:13:00 Test Item Value Reference Range Interpretation Comments Calcium Lvl (test code = Calcium Lvl) 9.2 8.5-10.5 [facility] HospitalBueno IncMICHAEL [place] [id number] 18:13:00 Test Item Value Reference Range Interpretation Comments Total Protein (test code = Total 6.6 6.4-8.4 Protein) [place] [address]-08-05 18:13:00 Test Item Value Reference Range Interpretation Comments Albumin Lvl (test code = Albumin Lvl) 3.1 3.5-5.0 [facility] HospitalBu[facility] IncMICHAEL [place] [id number] 18:13:00 Test Item Value Reference Range Interpretation Comments ALT (test code = ALT) 36 See_Comment [Auto mated message] The system which ge nerated this result transmit swathi reference range : <=65. The reference range was not used to interpr et this result as deny l/abnormal. [facility] [id number] 18:13:00 Test Item Value Reference Range Interpretation Comments AST (test code = AST) 28 See_Comment [Auto mated message] The system which ge nerated this result transmit swathi reference range : <=37. The reference range was not used to interpr et this result as deny l/abnormal. [facility] RKETU1918-04-05 18:13:00 Test Item Value Reference Range Interpretation Comments Alk Phos (test code = Alk Phos) 231 39-136 [place] [address]-08-05 18:13:00 Test Item Value Reference Range Interpretation Comments Bili Total (test code = Bili Total) 1.0 0.2-1.3 [facility] [id number] 18:13:00 Test Item Value Reference Range Interpretation Comments AGAP (test code = AGAP) 11.4 10.0-20.0 [place] [address]-08-05 18:13:00 Test Item Value Reference Range Interpretation Comments B/C Ratio (test code = B/C Ratio) 8 1 6-25 [address]08-05 18:13:00 Test Item Value Reference Range Interpretation Comments Globulin (test code = Globulin) 3.5 2.7-4.2 [place] [address]-08-05 18:13:00 Test Item Value Reference Range Interpretation Comments A/G Ratio (test code = A/G Ratio) 0.9 1 0.7-1.6 [place] [address]-08-05 18:13:00 Test Item Value Reference Range Interpretation Comments eGFR (test code = eGFR) 9 [place] [address]-08-05 18:13:00 Test Item Value Reference Range Interpretation Comments WBC (test code = WBC) 4.8 3.7-10.4 [place] [address]-08-05 18:13:00 Test Item Value Reference Range Interpretation Comments RBC (test code = RBC) 1.93 4.70-6.10 [place] [address]-08-05 18:13:00 Test Item Value Reference Range Interpretation Comments Hgb (test code = Hgb) 7.2 14.0-18.0 [place] [address]-08-05 18:13:00 Test Item Value Reference Range Interpretation Comments Hct (test code = Hct) 21.2 42.0-54.0 [place] [address]-08-05 18:13:00 Test Item Value Reference Range Interpretation Comments MCV (test code = MCV) 110.1 80.0-94.0 [place] [address]-08-05 18:13:00 Test Item Value Reference Range Interpretation Comments MCH (test code = MCH) 37.1 pg 27.0-31.0 [place] [address]-08-05 18:13:00 Test Item Value Reference Range Interpretation Comments MCHC (test code = MCHC) 33.7 32.0-36.0 [place] [address]-08-05 18:13:00 Test Item Value Reference Range Interpretation Comments RDW (test code = RDW) 25.8 11.5-14.5 [facility] Hos[id number] 18:13:00 Test Item Value Reference Range Interpretation Comments Platelet (test code = Platelet) 216 133-450 [place] 152042-08-05 18:13:00 Test Item Value Reference Range Interpretation Comments MPV (test code = MPV) 8.2 7.4-10.4 [place] 152042-08-05 18:13:00 Test Item Value Reference Range Interpretation Comments PT (test code = PT) 16.9 s 12.0-14.7 [place] [address]-08-05 18:13:00 Test Item Value Reference Range Interpretation Comments INR (test code = INR) 1.39 1 0.85-1.17 [place] [address]-08-05 18:13:00 Test Item Value Reference Range Interpretation Comments PTT (test code = PTT) 35.0 s 22.9-35.8 [place] [address]-08-05 18:13:00 Test Item Value Reference Range Interpretation Comments Plt Morph (test code = Normal (01/02/22 1:13 PM) Plt Morph) [facility] HospitalMuscuhgYZAVAQGUXM0244-98-97 18:13:00 Test Item Value Reference Range Interpretation Comments Segs (test code = Segs) 76.4 45.0-75.0 [facility] HospitalWqkdzrdLPAMJUIMAD7905-60-35 18:13:00 Test Item Value Reference Range Interpretation Comments Lymphocytes (test code = Lymphocytes) 14.6 20.0-40.0 [place] 152042-08-05 18:13:00 Test Item Value Reference Range Interpretation Comments Monocytes (test code = Monocytes) 7.5 2.0-12.0 [place] [address]-08-05 18:13:00 Test Item Value Reference Range Interpretation Comments Eosinophils (test code = 0.6 See_Comment [A utomated message] The Eosinophils) system which ge nerated this result tra nsmitted reference range : <=4.0. The reference r samantha was not used to int erpret this result as normal/abnormal . [place] 152042-08-05 18:13:00 Test Item Value Reference Range Interpretation Comments Basophils (test code = 0.9 See_Comment [Aut omated message] The Basophils) system which ge nerated this result tra nsmitted reference range : <=1.0. The reference r samantha was not used to int erpret this result as normal/abnormal . [facility] HospitalUkummdlXCHLBVRODN4498-94-20 18:13:00 Test Item Value Reference Range Interpretation Comments Neutrophils # (test code = Neutrophils 3.7 1.5-8.1 #) [facility] CenterTvibsyiVDVYQPZBPV5199-07-80 18:13:00 Test Item Value Reference Range Interpretation Comments Lymphocytes # (test code = Lymphocytes 0.7 1.0-5.5 #) [facility] CenterWzusvsmARIVVDHNYI2279-98-17 18:13:00 Test Item Value Reference Range Interpretation Comments Monocytes # (test code 0.4 See_Comment [Aut omated message] The = Monocytes #) system which generated this result tra nsmitted reference range : <=0.8. The reference r samantha was not used to int erpret this result as normal/abnormal . [facility] HospitalKseqmukBYWAYVQBFI9013-39-42 18:13:00 Test Item Value Reference Range Interpretation Comments Anisocyte (test code = 2+ *ABN*(01/02/22 1:13 Anisocyte) PM) [facility] CenterAshvvdwDYQJNDKBLD6156-33-82 18:13:00 Test Item Value Reference Range Interpretation Comments Macrocyte (test code = 2+ *ABN*(01/02/22 1:13 Macrocyte) PM) [facility] [id number] 18:13:00 Test Item Value Reference Range Interpretation Comments HS Troponin I (test code = HS Troponin 156 I) [facility] [id number] 18:13:00 Test Item Value Reference Range Interpretation Comments Glucose Lvl (test code = Glucose Lvl) 237 70-99 [facility] [id number] 18:13:00 Test Item Value Reference Range Interpretation Comments BUN (test code = BUN) 46 7-22 [facility] [id number] 18:13:00 Test Item Value Reference Range Interpretation Comments Creatinine Lvl (test code = Creatinine 5.92 0.50-1.40 Lvl) [facility] [id number] 18:13:00 Test Item Value Reference Range Interpretation Comments Sodium Lvl (test code = Sodium Lvl) 134 135-145 [address]08-05 18:13:00 Test Item Value Reference Range Interpretation Comments Potassium Lvl (test code = Potassium 4.4 3.5-5.1 Lvl) [address]08-05 18:13:00 Test Item Value Reference Range Interpretation Comments Chloride Lvl (test code = Chloride Lvl) 98 95-109 [address]08-05 18:13:00 Test Item Value Reference Range Interpretation Comments CO2 (test code = CO2) 29 24-32 [address]08-05 18:13:00 Test Item Value Reference Range Interpretation Comments Calcium Lvl (test code = Calcium Lvl) 9.2 8.5-10.5 [address]08-05 18:13:00 Test Item Value Reference Range Interpretation Comments Total Protein (test code = Total 6.6 6.4-8.4 Protein) [address]08-05 18:13:00 Test Item Value Reference Range Interpretation Comments Albumin Lvl (test code = Albumin Lvl) 3.1 3.5-5.[address]08-05 18:13:00 Test Item Value Reference Range Interpretation Comments ALT (test code = ALT) 36 See_Comment [Auto mated message] The system which ge nerated this result transmit swathi reference range : <=65. The reference range was not used to interpr et this result as deny l/abnormal. [address]08-05 18:13:00 Test Item Value Reference Range Interpretation Comments AST (test code = AST) 28 See_Comment [Auto mated message] The system which ge nerated this result transmit swathi reference range : <=37. The reference range was not used to interpr et this result as deny l/abnormal. [address]08-05 18:13:00 Test Item Value Reference Range Interpretation Comments Alk Phos (test code = Alk Phos) 231 39-136 [place] [address]-08-05 18:13:00 Test Item Value Reference Range Interpretation Comments Bili Total (test code = Bili Total) 1.0 0.2-1.[address]08-05 18:13:00 Test Item Value Reference Range Interpretation Comments AGAP (test code = AGAP) 11.4 10.0-20.0 [place] 0[address]992-08-05 18:13:00 Test Item Value Reference Range Interpretation Comments B/C Ratio (test code = B/C Ratio) 8 1 6-25 [place] [address]-08-05 18:13:00 Test Item Value Reference Range Interpretation Comments Globulin (test code = Globulin) 3.5 2.7-4.2 [place] [address]-08-05 18:13:00 Test Item Value Reference Range Interpretation Comments A/G Ratio (test code = A/G Ratio) 0.9 1 0.7-1.6 [place] [address]-08-05 18:13:00 Test Item Value Reference Range Interpretation Comments eGFR (test code = eGFR) 9 [place] [address]-08-05 18:13:00 Test Item Value Reference Range Interpretation Comments WBC (test code = WBC) 4.8 3.7-10.4 [place] [address]-08-05 18:13:00 Test Item Value Reference Range Interpretation Comments RBC (test code = RBC) 1.93 4.70-6.10 [place] [address]-08-05 18:13:00 Test Item Value Reference Range Interpretation Comments Hgb (test code = Hgb) 7.2 14.0-18.0 [place] [address]-08-05 18:13:00 Test Item Value Reference Range Interpretation Comments Hct (test code = Hct) 21.2 42.0-54.0 [place] [address]-08-05 18:13:00 Test Item Value Reference Range Interpretation Comments MCV (test code = MCV) 110.1 80.0-94.0 [place] [address]-08-05 18:13:00 Test Item Value Reference Range Interpretation Comments MCH (test code = MCH) 37.1 pg 27.0-31.0 [place] [address]-08-05 18:13:00 Test Item Value Reference Range Interpretation Comments MCHC (test code = MCHC) 33.7 32.0-36.0 [place] [address]-08-05 18:13:00 Test Item Value Reference Range Interpretation Comments RDW (test code = RDW) 25.8 11.5-14.5 [place] [address]-08-05 18:13:00 Test Item Value Reference Range Interpretation Comments Platelet (test code = Platelet) 216 133-450 [address]08-05 18:13:00 Test Item Value Reference Range Interpretation Comments MPV (test code = MPV) 8.2 7.4-10.4 [address]08-05 18:13:00 Test Item Value Reference Range Interpretation Comments PT (test code = PT) 16.9 s 12.0-14.7 [place] [address]-08-05 18:13:00 Test Item Value Reference Range Interpretation Comments INR (test code = INR) 1.39 1 0.85-1.17 [address]08-05 18:13:00 Test Item Value Reference Range Interpretation Comments PTT (test code = PTT) 35.0 s 22.9-35.8 [address]08-05 18:13:00 Test Item Value Reference Range Interpretation Comments Plt Morph (test code = Normal (01/02/22 1:13 PM) Plt Morph) [address]08-05 18:13:00 Test Item Value Reference Range Interpretation Comments Segs (test code = Segs) 76.4 45.0-75.0 [address]08-05 18:13:00 Test Item Value Reference Range Interpretation Comments Lymphocytes (test code = Lymphocytes) 14.6 20.0-40.0 [address]08-05 18:13:00 Test Item Value Reference Range Interpretation Comments Monocytes (test code = Monocytes) 7.5 2.0-12.0 [address]08-05 18:13:00 Test Item Value Reference Range Interpretation Comments Eosinophils (test code = 0.6 See_Comment [A utomated message] The Eosinophils) system which ge nerated this result tra nsmitted reference range : <=4.0. The reference r samantha was not used to int erpret this result as normal/abnormal . [address]08-05 18:13:00 Test Item Value Reference Range Interpretation Comments Basophils (test code = 0.9 See_Comment [Aut omated message] The Basophils) system which ge nerated this result tra nsmitted reference range : <=1.0. The reference r samantha was not used to int erpret this result as normal/abnormal . [facility] 18:13:00 Test Item Value Reference Range Interpretation Comments Neutrophils # (test code = Neutrophils 3.7 1.5-8.1 #) [facility]wrzbgwYNFLMFYUJZ7652-65-33 18:13:00 Test Item Value Reference Range Interpretation Comments Lymphocytes # (test code = Lymphocytes 0.7 1.0-5.5 #) [facility]XhpwxwqQNTDKTDJOG3435-81-36 18:13:00 Test Item Value Reference Range Interpretation Comments Monocytes # (test code 0.4 See_Comment [Aut omated message] The = Monocytes #) system which generated this result tra nsmitted reference range : <=0.8. The reference r samantha was not used to int erpret this result as normal/abnormal . [facility]Buig[facility]moNHDBVUEERK4233-05-17 18:13:00 Test Item Value Reference Range Interpretation Comments Anisocyte (test code = 2+ *ABN*(01/02/22 1:13 Anisocyte) PM) [facility]FgjfcfsQXQYJDREDO7287-44-63 18:13:00 Test Item Value Reference Range Interpretation Comments Macrocyte (test code = 2+ *ABN*(01/02/22 1:13 Macrocyte) PM) [facility]2022-08-05 18:13:00 Test Item Value Reference Range Interpretation Comments HS Troponin I (test code = HS Troponin 156 I) [facility]2022-08-05 18:13:00 Test Item Value Reference Range Interpretation Comments Glucose Lvl (test code = Glucose Lvl) 237 70-99 [facility]2022-08-05 18:13:00 Test Item Value Reference Range Interpretation Comments BUN (test code = BUN) 46 7-22 [facility]2022-08-05 18:13:00 Test Item Value Reference Range Interpretation Comments Creatinine Lvl (test code = Creatinine 5.92 0.50-1.40 Lvl) [facility]2022-08-05 18:13:00 Test Item Value Reference Range Interpretation Comments Sodium Lvl (test code = Sodium Lvl) 134 135-145 [facility]2022-08-05 18:13:00 Test Item Value Reference Range Interpretation Comments Potassium Lvl (test code = Potassium 4.4 3.5-5.1 Lvl) [address]08-05 18:13:00 Test Item Value Reference Range Interpretation Comments Chloride Lvl (test code = Chloride Lvl) 98 95-109 [address]08-05 18:13:00 Test Item Value Reference Range Interpretation Comments CO2 (test code = CO2) 29 24-32 [address]08-05 18:13:00 Test Item Value Reference Range Interpretation Comments Calcium Lvl (test code = Calcium Lvl) 9.2 8.5-10.5 [address]08-05 18:13:00 Test Item Value Reference Range Interpretation Comments Total Protein (test code = Total 6.6 6.4-8.4 Protein) [address]08-05 18:13:00 Test Item Value Reference Range Interpretation Comments Albumin Lvl (test code = Albumin Lvl) 3.1 3.5-5.0 [address]08-05 18:13:00 Test Item Value Reference Range Interpretation Comments ALT (test code = ALT) 36 See_Comment [Auto mated message] The system which ge nerated this result transmit swathi reference range : <=65. The reference range was not used to interpr et this result as deny l/abnormal. [address]08-05 18:13:00 Test Item Value Reference Range Interpretation Comments AST (test code = AST) 28 See_Comment [Auto mated message] The system which ge nerated this result transmit swathi reference range : <=37. The reference range was not used to interpr et this result as deny l/abnormal. [place] [address]-08-05 18:13:00 Test Item Value Reference Range Interpretation Comments Alk Phos (test code = Alk Phos) 231 39-136 [place] [address]-08-05 18:13:00 Test Item Value Reference Range Interpretation Comments Bili Total (test code = Bili Total) 1.0 0.2-1.3 [address]08-05 18:13:00 Test Item Value Reference Range Interpretation Comments AGAP (test code = AGAP) 11.4 10.0-20.0 [address]08-05 18:13:00 Test Item Value Reference Range Interpretation Comments B/C Ratio (test code = B/C Ratio) 8 1 6-25 [address]08-05 18:13:00 Test Item Value Reference Range Interpretation Comments Globulin (test code = Globulin) 3.5 2.7-4.2 [address]08-05 18:13:00 Test Item Value Reference Range Interpretation Comments A/G Ratio (test code = A/G Ratio) 0.9 1 0.7-1.6 [address]08-05 18:13:00 Test Item Value Reference Range Interpretation Comments eGFR (test code = eGFR) 9 [address]08-05 18:13:00 Test Item Value Reference Range Interpretation Comments WBC (test code = WBC) 4.8 3.7-10.4 [address]08-05 18:13:00 Test Item Value Reference Range Interpretation Comments RBC (test code = RBC) 1.93 4.70-6.10 [address]08-05 18:13:00 Test Item Value Reference Range Interpretation Comments Hgb (test code = Hgb) 7.2 14.0-18.0 [place] [address]-08-05 18:13:00 Test Item Value Reference Range Interpretation Comments Hct (test code = Hct) 21.2 42.0-54.0 [address]08-05 18:13:00 Test Item Value Reference Range Interpretation Comments MCV (test code = MCV) 110.1 80.0-94.0 [address]08-05 18:13:00 Test Item Value Reference Range Interpretation Comments MCH (test code = MCH) 37.1 pg 27.0-31.0 [place] [address]-08-05 18:13:00 Test Item Value Reference Range Interpretation Comments MCHC (test code = MCHC) 33.7 32.0-36.0 [place] [address]-08-05 18:13:00 Test Item Value Reference Range Interpretation Comments RDW (test code = RDW) 25.8 11.5-14.5 [place] [address]-08-05 18:13:00 Test Item Value Reference Range Interpretation Comments Platelet (test code = Platelet) 216 133-450 [place] [address]-08-05 18:13:00 Test Item Value Reference Range Interpretation Comments MPV (test code = MPV) 8.2 7.4-10.4 [place] [address]-08-05 18:13:00 Test Item Value Reference Range Interpretation Comments PT (test code = PT) 16.9 s 12.0-14.7 [place] [address]-08-05 18:13:00 Test Item Value Reference Range Interpretation Comments INR (test code = INR) 1.39 1 0.85-1.17 [place] [address]-08-05 18:13:00 Test Item Value Reference Range Interpretation Comments PTT (test code = PTT) 35.0 s 22.9-35.8 [place] [address]-08-05 18:13:00 Test Item Value Reference Range Interpretation Comments Plt Morph (test code = Normal (01/02/22 1:13 PM) Plt Morph) [place] [address]-08-05 18:13:00 Test Item Value Reference Range Interpretation Comments Segs (test code = Segs) 76.4 45.0-75.0 [place] [address]-08-05 18:13:00 Test Item Value Reference Range Interpretation Comments Lymphocytes (test code = Lymphocytes) 14.6 20.0-40.0 [place] [address]-08-05 18:13:00 Test Item Value Reference Range Interpretation Comments Monocytes (test code = Monocytes) 7.5 2.0-12.0 [place] [address]-08-05 18:13:00 Test Item Value Reference Range Interpretation Comments Eosinophils (test code = 0.6 See_Comment [A utomated message] The Eosinophils) system which ge nerated this result tra nsmitted reference range : <=4.0. The reference r samantha was not used to int erpret this result as normal/abnormal . [place] [address]-08-05 18:13:00 Test Item Value Reference Range Interpretation Comments Basophils (test code = 0.9 See_Comment [Aut omated message] The Basophils) system which ge nerated this result tra nsmitted reference range : <=1.0. The reference r samantha was not used to int erpret this result as normal/abnormal . [address]08-05 18:13:00 Test Item Value Reference Range Interpretation Comments Neutrophils # (test code = Neutrophils 3.7 1.5-8.1 #) [place] [address]-08-05 18:13:00 Test Item Value Reference Range Interpretation Comments Lymphocytes # (test code = Lymphocytes 0.7 1.0-5.5 #) [place] [address]-08-05 18:13:00 Test Item Value Reference Range Interpretation Comments Monocytes # (test code 0.4 See_Comment [Aut omated message] The = Monocytes #) system which generated this result tra nsmitted reference range : <=0.8. The reference r samantha was not used to int erpret this result as normal/abnormal . [address]08-05 18:13:00 Test Item Value Reference Range Interpretation Comments Anisocyte (test code = 2+ *ABN*(01/02/22 1:13 Anisocyte) PM) [address]08-05 18:13:00 Test Item Value Reference Range Interpretation Comments Macrocyte (test code = 2+ *ABN*(01/02/22 1:13 Macrocyte) PM) [facility]2022-07-19 09:29:00 Test Item Value Reference Range Interpretation Comments Glucose Lvl (test code = Glucose Lvl) 199 70-99 [place] [address]-07-19 09:29:00 Test Item Value Reference Range Interpretation Comments BUN (test code = BUN) 28 7-22 [place] [address]-07-19 09:29:00 Test Item Value Reference Range Interpretation Comments Creatinine Lvl (test code = Creatinine 4.84 0.50-1.40 Lvl) [place] [address]-07-19 09:29:00 Test Item Value Reference Range Interpretation Comments Sodium Lvl (test code = Sodium Lvl) 134 135-145 [place] [address]-07-19 09:29:00 Test Item Value Reference Range Interpretation Comments Potassium Lvl (test code = Potassium 4.3 3.5-5.1 Lvl) [place] [address]-07-19 09:29:00 Test Item Value Reference Range Interpretation Comments Chloride Lvl (test code = Chloride Lvl) 100 95-109 [place] [address]-07-19 09:29:00 Test Item Value Reference Range Interpretation Comments CO2 (test code = CO2) 28 24-32 [place] [address]-07-19 09:29:00 Test Item Value Reference Range Interpretation Comments Calcium Lvl (test code = Calcium Lvl) 9.4 8.5-10.5 [place] [address]-07-19 09:29:00 Test Item Value Reference Range Interpretation Comments Total Protein (test code = Total 6.6 6.4-8.4 Protein) [place] [address]-07-19 09:29:00 Test Item Value Reference Range Interpretation Comments Albumin Lvl (test code = Albumin Lvl) 3.0 3.5-5.0 [place] [address]-07-19 09:29:00 Test Item Value Reference Range Interpretation Comments ALT (test code = ALT) 92 See_Comment [Auto mated message] The system which ge nerated this result transmit swathi reference range : <=65. The reference range was not used to interpr et this result as deny l/abnormal. [place] [address]-07-19 09:29:00 Test Item Value Reference Range Interpretation Comments AST (test code = AST) 123 See_Comment [Auto mated message] The system which ge nerated this result transmit swathi reference range : <=37. The reference range was not used to interpr et this result as deny l/abnormal. [place] [address]-07-19 09:29:00 Test Item Value Reference Range Interpretation Comments Alk Phos (test code = Alk Phos) 272 39-136 [place] [address]-07-19 09:29:00 Test Item Value Reference Range Interpretation Comments Bili Total (test code = Bili Total) 0.9 0.2-1.3 [place] [address]-07-19 09:29:00 Test Item Value Reference Range Interpretation Comments AGAP (test code = AGAP) 10.3 10.0-20.0 [place] [address]-07-19 09:29:00 Test Item Value Reference Range Interpretation Comments B/C Ratio (test code = B/C Ratio) 6 1 6-25 [facility] [id number] 09:29:00 Test Item Value Reference Range Interpretation Comments Globulin (test code = Globulin) 3.6 2.7-4.2 [facility]2022-07-19 09:29:00 Test Item Value Reference Range Interpretation Comments A/G Ratio (test code = A/G Ratio) 0.8 1 0.7-1.6 [facility]2022-07-19 09:29:00 Test Item Value Reference Range Interpretation Comments eGFR (test code = eGFR) 12 [facility]2022-07-19 09:29:00 Test Item Value Reference Range Interpretation Comments Phosphorus (test code = Phosphorus) 4.3 2.5-4.5 [facility]TgrsczlGQXWLZGZTP1879-51-39 09:29:00 Test Item Value Reference Range Interpretation Comments WBC (test code = WBC) 4.7 3.7-10.4 [facility] HospitalVjrqfrqHMFYBATMOV7069-34-83 09:29:00 Test Item Value Reference Range Interpretation Comments RBC (test code = RBC) 2.14 4.70-6.10 [facility] HospitalElvakipYYNWAKJPOX0492-08-68 09:29:00 Test Item Value Reference Range Interpretation Comments Hgb (test code = Hgb) 7.6 14.0-18.0 [facility] HospitalGpxfakjYBVOVBEDBJ7762-50-79 09:29:00 Test Item Value Reference Range Interpretation Comments Hct (test code = Hct) 22.8 42.0-54.0 [facility] HospitalTfklgumQOWOHHTSKX3664-03-43 09:29:00 Test Item Value Reference Range Interpretation Comments MCV (test code = MCV) 106.6 80.0-94.0 [place] 152042-07-19 09:29:00 Test Item Value Reference Range Interpretation Comments MCH (test code = MCH) 35.6 pg 27.0-31.0 [place] 152042-07-19 09:29:00 Test Item Value Reference Range Interpretation Comments MCHC (test code = MCHC) 33.4 32.0-36.0 [facility] HospitalUdzkqteZYXEFZZELG7694-73-18 09:29:00 Test Item Value Reference Range Interpretation Comments RDW (test code = RDW) 24.3 11.5-14.5 [facility] HospitalVxnaxknKGBJNBPSZS8172-09-07 09:29:00 Test Item Value Reference Range Interpretation Comments Platelet (test code = Platelet) 148 133-450 [facility] HospitalMentrkkCZXWAOLPLK9799-28-66 09:29:00 Test Item Value Reference Range Interpretation Comments MPV (test code = MPV) 8.1 7.4-10.4 [place] 152042-07-19 09:29:00 Test Item Value Reference Range Interpretation Comments D-Dimer (test code = D-Dimer) 3.63 [place] 152042-07-19 09:29:00 Test Item Value Reference Range Interpretation Comments Segs (test code = Segs) 74.8 45.0-75.0 [place] 152042-07-19 09:29:00 Test Item Value Reference Range Interpretation Comments Lymphocytes (test code = Lymphocytes) 15.5 20.0-40.0 [place] 152042-07-19 09:29:00 Test Item Value Reference Range Interpretation Comments Monocytes (test code = Monocytes) 9.5 2.0-12.0 [place] 152042-07-19 09:29:00 Test Item Value Reference Range Interpretation Comments Basophils (test code = 0.2 See_Comment [Aut omated message] The Basophils) system which ge nerated this result tra nsmitted reference range : <=1.0. The reference r samantha was not used to int erpret this result as normal/abnormal . [facility] HospitalCutmcewTLKZSSVYUB7693-31-10 09:29:00 Test Item Value Reference Range Interpretation Comments Neutrophils # (test code = Neutrophils 3.5 1.5-8.1 #) [place]2042-07-19 09:29:00 Test Item Value Reference Range Interpretation Comments Lymphocytes # (test code = Lymphocytes 0.7 1.0-5.5 #) [place]2042-07-19 09:29:00 Test Item Value Reference Range Interpretation Comments Monocytes # (test code 0.4 See_Comment [Aut omated message] The = Monocytes #) system which generated this result tra nsmitted reference range : <=0.8. The reference r samantha was not used to int erpret this result as normal/abnormal . [place] 152042-07-19 09:29:00 Test Item Value Reference Range Interpretation Comments Macrocyte (test code = 1+ *ABN*(12/16/21 Macrocyte) 4:29 AM) [facility] HospitalWlhymkoALWQQNXIEB9102-56-96 09:29:00 Test Item Value Reference Range Interpretation Comments C-REACTIVE PROTEIN (test code = 19.0 C-REACTIVE PROTEIN) [place] [address]74992-07-19 09:29:00 Test Item Value Reference Range Interpretation Comments Glucose Lvl (test code = Glucose Lvl) 199 70-99 [place] [address]74[place]-07-19 09:29:00 Test Item Value Reference Range Interpretation Comments BUN (test code = BUN) 28 7-22 [place] [address]74[place]-07-19 09:29:00 Test Item Value Reference Range Interpretation Comments Creatinine Lvl (test code = Creatinine 4.84 0.50-1.40 Lvl) [place] [address]74[place]-07-19 09:29:00 Test Item Value Reference Range Interpretation Comments Sodium Lvl (test code = Sodium Lvl) 134 135-145 [place] [address]74[place]-07-19 09:29:00 Test Item Value Reference Range Interpretation Comments Potassium Lvl (test code = Potassium 4.3 3.5-5.1 Lvl) [place] [address]74[address]-07-19 09:29:00 Test Item Value Reference Range Interpretation Comments Chloride Lvl (test code = Chloride Lvl) 100 95-109 [place] 074992-07-19 09:29:00 Test Item Value Reference Range Interpretation Comments CO2 (test code = CO2) 28 24-32 [place] [address]74[address]-07-19 09:29:00 Test Item Value Reference Range Interpretation Comments Calcium Lvl (test code = Calcium Lvl) 9.4 8.5-10.5 [place] [address]74[address]-07-19 09:29:00 Test Item Value Reference Range Interpretation Comments Total Protein (test code = Total 6.6 6.4-8.4 Protein) [place] [address]74[address]-07-19 09:29:00 Test Item Value Reference Range Interpretation Comments Albumin Lvl (test code = Albumin Lvl) 3.0 3.5-5.0 [place] [address]74[address]-07-19 09:29:00 Test Item Value Reference Range Interpretation Comments ALT (test code = ALT) 92 See_Comment [Auto mated message] The system which ge nerated this result transmit swathi reference range : <=65. The reference range was not used to interpr et this result as deny l/abnormal. [place] [address]-07-19 09:29:00 Test Item Value Reference Range Interpretation Comments Glucose Lvl (test code = Glucose Lvl) 199 70-99 [place] [address]74[place]-07-19 09:29:00 Test Item Value Reference Range Interpretation Comments BUN (test code = BUN) 28 7-22 [place] [address]74[place]-07-19 09:29:00 Test Item Value Reference Range Interpretation Comments Creatinine Lvl (test code = Creatinine 4.84 0.50-1.40 Lvl) [place] [address]74[address]-07-19 09:29:00 Test Item Value Reference Range Interpretation Comments Sodium Lvl (test code = Sodium Lvl) 134 135-145 [place] [address]74[place]-07-19 09:29:00 Test Item Value Reference Range Interpretation Comments AST (test code = AST) 123 See_Comment [Auto mated message] The system which ge nerated this result transmit swathi reference range : <=37. The reference range was not used to interpr et this result as deny l/abnormal. [place] [address]-07-19 09:29:00 Test Item Value Reference Range Interpretation Comments Potassium Lvl (test code = Potassium 4.3 3.5-5.1 Lvl) [place] [address]74[place]-07-19 09:29:00 Test Item Value Reference Range Interpretation Comments Chloride Lvl (test code = Chloride Lvl) 100 95-109 [place] 074992-07-19 09:29:00 Test Item Value Reference Range Interpretation Comments CO2 (test code = CO2) 28 24-32 [place] [address]74[place]-07-19 09:29:00 Test Item Value Reference Range Interpretation Comments Calcium Lvl (test code = Calcium Lvl) 9.4 8.5-10.5 [place] [address]74992-07-19 09:29:00 Test Item Value Reference Range Interpretation Comments Total Protein (test code = Total 6.6 6.4-8.4 Protein) [place] [address]74992-07-19 09:29:00 Test Item Value Reference Range Interpretation Comments Albumin Lvl (test code = Albumin Lvl) 3.0 3.5-5.0 [place] [address]74992-07-19 09:29:00 Test Item Value Reference Range Interpretation Comments ALT (test code = ALT) 92 See_Comment [Auto mated message] The system which ge nerated this result transmit swathi reference range : <=65. The reference range was not used to interpr et this result as deny l/abnormal. [facility] [id number] 09:29:00 Test Item Value Reference Range Interpretation Comments AST (test code = AST) 123 See_Comment [Auto mated message] The system which ge nerated this result transmit swathi reference range : <=37. The reference range was not used to interpr et this result as deny l/abnormal. [facility] [id number] 09:29:00 Test Item Value Reference Range Interpretation Comments Alk Phos (test code = Alk Phos) 272 39-136 [facility] [id number] 09:29:00 Test Item Value Reference Range Interpretation Comments Bili Total (test code = Bili Total) 0.9 0.2-1.3 [facility] [id number] 09:29:00 Test Item Value Reference Range Interpretation Comments Alk Phos (test code = Alk Phos) 272 39-136 [facility] [id number] 09:29:00 Test Item Value Reference Range Interpretation Comments AGAP (test code = AGAP) 10.3 10.0-20.0 [facility] [id number] 09:29:00 Test Item Value Reference Range Interpretation Comments B/C Ratio (test code = B/C Ratio) 6 1 6-25 [facility] [id number] 09:29:00 Test Item Value Reference Range Interpretation Comments Globulin (test code = Globulin) 3.6 2.7-4.2 [facility] [id number] 09:29:00 Test Item Value Reference Range Interpretation Comments A/G Ratio (test code = A/G Ratio) 0.8 1 0.7-1.6 [facility] [id number] 09:29:00 Test Item Value Reference Range Interpretation Comments eGFR (test code = eGFR) 12 [facility] [id number] 09:29:00 Test Item Value Reference Range Interpretation Comments Phosphorus (test code = Phosphorus) 4.3 2.5-4.5 [facility]DxpivaqSAHWDBSBTM5876-39-79 09:29:00 Test Item Value Reference Range Interpretation Comments WBC (test code = WBC) 4.7 3.7-10.4 [place] 152042-07-19 09:29:00 Test Item Value Reference Range Interpretation Comments RBC (test code = RBC) 2.14 4.70-6.10 [facility] HospitalRrsregcLNYGQDBAEV2332-94-06 09:29:00 Test Item Value Reference Range Interpretation Comments Hgb (test code = Hgb) 7.6 14.0-18.0 [facility] HospitalPsanfijKDRFSIZHCC0452-42-63 09:29:00 Test Item Value Reference Range Interpretation Comments Hct (test code = Hct) 22.8 42.0-54.0 [facility]2022-07-19 09:29:00 Test Item Value Reference Range Interpretation Comments Bili Total (test code = Bili Total) 0.9 0.2-1.3 [facility] HospitalVobssilMZDRMGOXLB3390-19-92 09:29:00 Test Item Value Reference Range Interpretation Comments MCV (test code = MCV) 106.6 80.0-94.0 [facility] HospitalBdebtnkFNZENIPYIZ3419-26-65 09:29:00 Test Item Value Reference Range Interpretation Comments MCH (test code = MCH) 35.6 pg 27.0-31.0 [facility] HospitalNjpoqlcTAVPEOYNME6517-12-20 09:29:00 Test Item Value Reference Range Interpretation Comments MCHC (test code = MCHC) 33.4 32.0-36.0 [facility] HospitalYisbxoiRPZNWMBWWI2881-27-01 09:29:00 Test Item Value Reference Range Interpretation Comments RDW (test code = RDW) 24.3 11.5-14.5 [facility] HospitalNwnotyuUQCPRCWSIO0881-21-63 09:29:00 Test Item Value Reference Range Interpretation Comments Platelet (test code = Platelet) 148 133-450 [facility] HospitalXzfguigZVRYBBIAER7255-22-05 09:29:00 Test Item Value Reference Range Interpretation Comments MPV (test code = MPV) 8.1 7.4-10.4 [facility] HospitalExcnpjqBOYWYGKXTN2120-63-88 09:29:00 Test Item Value Reference Range Interpretation Comments D-Dimer (test code = D-Dimer) 3.63 [facility] HospitalYuckirnUVBYCUDWZT6035-71-46 09:29:00 Test Item Value Reference Range Interpretation Comments Segs (test code = Segs) 74.8 45.0-75.0 [facility]JJSAEX7453[facility]-68 09:29:00 Test Item Value Reference Range Interpretation Comments Lymphocytes (test code = Lymphocytes) 15.5 20.0-40.0 [facility] HospitalKxazaqoYLNIKQKNPQ1436-71-17 09:29:00 Test Item Value Reference Range Interpretation Comments Monocytes (test code = Monocytes) 9.5 2.0-12.0 [facility]2022-07-19 09:29:00 Test Item Value Reference Range Interpretation Comments AGAP (test code = AGAP) 10.3 10.0-20.0 [facility] HospitalQozbhfvSEPGHACBME2921-58-79 09:29:00 Test Item Value Reference Range Interpretation Comments Basophils (test code = 0.2 See_Comment [Aut omated message] The Basophils) system which ge nerated this result tra nsmitted reference range : <=1.0. The reference r samantha was not used to int erpret this result as normal/abnormal . [facility] HospitalWjtfhrhOQIPQSFWOL5045-76-67 09:29:00 Test Item Value Reference Range Interpretation Comments Neutrophils # (test code = Neutrophils 3.5 1.5-8.1 #) [facility] HospitalIsjoucdAGYBOSPRUM2707-17-43 09:29:00 Test Item Value Reference Range Interpretation Comments Lymphocytes # (test code = Lymphocytes 0.7 1.0-5.5 #) [facility] HospitalTsinqvrUHDEZMCLFL0393-10-17 09:29:00 Test Item Value Reference Range Interpretation Comments Monocytes # (test code 0.4 See_Comment [Aut omated message] The = Monocytes #) system which generated this result tra nsmitted reference range : <=0.8. The reference r samantha was not used to int erpret this result as normal/abnormal . [facility] HospitalRdyagecOJSKCSWUHB0186-61-61 09:29:00 Test Item Value Reference Range Interpretation Comments Macrocyte (test code = 1+ *ABN*(12/16/21 Macrocyte) 4:29 AM) [facility]dy[facility]SUUIILRAOB3727-07-39 09:29:00 Test Item Value Reference Range Interpretation Comments C-REACTIVE PROTEIN (test code = 19.0 C-REACTIVE PROTEIN) [facility] [id number] 09:29:00 Test Item Value Reference Range Interpretation Comments B/C Ratio (test code = B/C Ratio) 6 1 6-25 [place] 074992-07-19 09:29:00 Test Item Value Reference Range Interpretation Comments Globulin (test code = Globulin) 3.6 2.7-4.2 [place] 074992-07-19 09:29:00 Test Item Value Reference Range Interpretation Comments A/G Ratio (test code = A/G Ratio) 0.8 1 0.7-1.6 [place] 074992-07-19 09:29:00 Test Item Value Reference Range Interpretation Comments eGFR (test code = eGFR) 12 [facility]2022-07-19 09:29:00 Test Item Value Reference Range Interpretation Comments Phosphorus (test code = Phosphorus) 4.3 2.5-4.5 [place] 152042-07-19 09:29:00 Test Item Value Reference Range Interpretation Comments WBC (test code = WBC) 4.7 3.7-10.4 [place] 152042-07-19 09:29:00 Test Item Value Reference Range Interpretation Comments RBC (test code = RBC) 2.14 4.70-6.10 [place] 152042-07-19 09:29:00 Test Item Value Reference Range Interpretation Comments Hgb (test code = Hgb) 7.6 14.0-18.0 [place] 152042-07-19 09:29:00 Test Item Value Reference Range Interpretation Comments Hct (test code = Hct) 22.8 42.0-54.0 [place] 152042-07-19 09:29:00 Test Item Value Reference Range Interpretation Comments MCV (test code = MCV) 106.6 80.0-94.0 [place] 152042-07-19 09:29:00 Test Item Value Reference Range Interpretation Comments MCH (test code = MCH) 35.6 pg 27.0-31.0 [place] 152042-07-19 09:29:00 Test Item Value Reference Range Interpretation Comments MCHC (test code = MCHC) 33.4 32.0-36.0 [place] 152042-07-19 09:29:00 Test Item Value Reference Range Interpretation Comments RDW (test code = RDW) 24.3 11.5-14.5 [place] [address]-07-19 09:29:00 Test Item Value Reference Range Interpretation Comments Platelet (test code = Platelet) 148 133-450 [place] 152042-07-19 09:29:00 Test Item Value Reference Range Interpretation Comments MPV (test code = MPV) 8.1 7.4-10.4 [place] [address]-07-19 09:29:00 Test Item Value Reference Range Interpretation Comments D-Dimer (test code = D-Dimer) 3.63 [place] [address]-07-19 09:29:00 Test Item Value Reference Range Interpretation Comments Segs (test code = Segs) 74.8 45.0-75.0 [place] [address]-07-19 09:29:00 Test Item Value Reference Range Interpretation Comments Lymphocytes (test code = Lymphocytes) 15.5 20.0-40.0 [place] 152042-07-19 09:29:00 Test Item Value Reference Range Interpretation Comments Monocytes (test code = Monocytes) 9.5 2.0-12.0 [place] [address]-07-19 09:29:00 Test Item Value Reference Range Interpretation Comments Basophils (test code = 0.2 See_Comment [Aut omated message] The Basophils) system which ge nerated this result tra nsmitted reference range : <=1.0. The reference r samantha was not used to int erpret this result as normal/abnormal . [facility] HospitalLcghcysUZJATVPIMU1612-09-84 09:29:00 Test Item Value Reference Range Interpretation Comments Neutrophils # (test code = Neutrophils 3.5 1.5-8.1 #) [place] 152042-07-19 09:29:00 Test Item Value Reference Range Interpretation Comments Lymphocytes # (test code = Lymphocytes 0.7 1.0-5.5 #) [place] [address]-07-19 09:29:00 Test Item Value Reference Range Interpretation Comments Monocytes # (test code 0.4 See_Comment [Aut omated message] The = Monocytes #) system which generated this result tra nsmitted reference range : <=0.8. The reference r samantha was not used to int erpret this result as normal/abnormal . [place] [address]-07-19 09:29:00 Test Item Value Reference Range Interpretation Comments Macrocyte (test code = 1+ *ABN*(12/16/21 Macrocyte) 4:29 AM) [facility] HospitalAasbzamRAPWNGQKCR6066-14-85 09:29:00 Test Item Value Reference Range Interpretation Comments C-REACTIVE PROTEIN (test code = 19.0 C-REACTIVE PROTEIN) [place] 074992-07-19 09:29:00 Test Item Value Reference Range Interpretation Comments Glucose Lvl (test code = Glucose Lvl) 199 70-99 [place] 074992-07-19 09:29:00 Test Item Value Reference Range Interpretation Comments BUN (test code = BUN) 28 - [place] 074992-07-19 09:29:00 Test Item Value Reference Range Interpretation Comments Creatinine Lvl (test code = Creatinine 4.84 0.50-1.40 Lvl) [facility]2022-07-19 09:29:00 Test Item Value Reference Range Interpretation Comments Sodium Lvl (test code = Sodium Lvl) 134 135-145 [facility]2022-07-19 09:29:00 Test Item Value Reference Range Interpretation Comments Potassium Lvl (test code = Potassium 4.3 3.5-5.1 Lvl) [facility]2022-07-19 09:29:00 Test Item Value Reference Range Interpretation Comments Chloride Lvl (test code = Chloride Lvl) 100 95-109 [place] 074992-07-19 09:29:00 Test Item Value Reference Range Interpretation Comments CO2 (test code = CO2) 28 24-32 [place] 074992-07-19 09:29:00 Test Item Value Reference Range Interpretation Comments Calcium Lvl (test code = Calcium Lvl) 9.4 8.5-10.5 [place] 074992-07-19 09:29:00 Test Item Value Reference Range Interpretation Comments Total Protein (test code = Total 6.6 6.4-8.4 Protein) [place] 074992-07-19 09:29:00 Test Item Value Reference Range Interpretation Comments Albumin Lvl (test code = Albumin Lvl) 3.0 3.5-5.0 [place] 074992-07-19 09:29:00 Test Item Value Reference Range Interpretation Comments ALT (test code = ALT) 92 See_Comment [Auto mated message] The system which ge nerated this result transmit swathi reference range : <=65. The reference range was not used to interpr et this result as deny l/abnormal. [facility] [id number] 09:29:00 Test Item Value Reference Range Interpretation Comments AST (test code = AST) 123 See_Comment [Auto mated message] The system which ge nerated this result transmit swathi reference range : <=37. The reference range was not used to interpr et this result as deny l/abnormal. [facility] [id number] 09:29:00 Test Item Value Reference Range Interpretation Comments Alk Phos (test code = Alk Phos) 272 39-136 [facility] [id number] 09:29:00 Test Item Value Reference Range Interpretation Comments Bili Total (test code = Bili Total) 0.9 0.2-1.3 [facility] [id number] 09:29:00 Test Item Value Reference Range Interpretation Comments AGAP (test code = AGAP) 10.3 10.0-20.0 [facility] [id number] 09:29:00 Test Item Value Reference Range Interpretation Comments B/C Ratio (test code = B/C Ratio) 6 1 6-25 [facility] [id number] 09:29:00 Test Item Value Reference Range Interpretation Comments Globulin (test code = Globulin) 3.6 2.7-4.2 [facility] [id number] 09:29:00 Test Item Value Reference Range Interpretation Comments A/G Ratio (test code = A/G Ratio) 0.8 1 0.7-1.6 [facility] [id number] 09:29:00 Test Item Value Reference Range Interpretation Comments eGFR (test code = eGFR) 12 [facility] [id number] 09:29:00 Test Item Value Reference Range Interpretation Comments Phosphorus (test code = Phosphorus) 4.3 2.5-4.5 [facility] HospitalZkmmqpjOUCGUVXBXZ4469-83-61 09:29:00 Test Item Value Reference Range Interpretation Comments WBC (test code = WBC) 4.7 3.7-10.4 [facility] HospitalNcmihdzUZKHJEDIDN7308-70-70 09:29:00 Test Item Value Reference Range Interpretation Comments RBC (test code = RBC) 2.14 4.70-6.10 [facility] HospitalJmvdnkqZZVNBHDJOH4692-61-23 09:29:00 Test Item Value Reference Range Interpretation Comments Hgb (test code = Hgb) 7.6 14.0-18.0 [facility] HospitalMyugcgjVIAXUVSNXV8590-22-54 09:29:00 Test Item Value Reference Range Interpretation Comments Hct (test code = Hct) 22.8 42.0-54.0 [facility] HospitalJfsroqeVVTSYPTHKS2311-26-69 09:29:00 Test Item Value Reference Range Interpretation Comments MCV (test code = MCV) 106.6 80.0-94.0 [facility] HospitalEagdbhmIPFGBAMRAH9906-56-46 09:29:00 Test Item Value Reference Range Interpretation Comments MCH (test code = MCH) 35.6 pg 27.0-31.0 [facility] HospitalBndltboJKJTIBTHYC7346-35-05 09:29:00 Test Item Value Reference Range Interpretation Comments MCHC (test code = MCHC) 33.4 32.0-36.0 [facility] HospitalKegcsrzGCDGLNLCFC1257-12-72 09:29:00 Test Item Value Reference Range Interpretation Comments RDW (test code = RDW) 24.3 11.5-14.5 [facility] HospitalLpaddxrCBDDWAHORZ3184-54-45 09:29:00 Test Item Value Reference Range Interpretation Comments Platelet (test code = Platelet) 148 133-450 [facility] HospitalHajgwupFSCUHVLDIY3496-21-77 09:29:00 Test Item Value Reference Range Interpretation Comments MPV (test code = MPV) 8.1 7.4-10.4 [place] 152042-07-19 09:29:00 Test Item Value Reference Range Interpretation Comments D-Dimer (test code = D-Dimer) 3.63 [place] 152042-07-19 09:29:00 Test Item Value Reference Range Interpretation Comments Segs (test code = Segs) 74.8 45.0-75.0 [place] 152042-07-19 09:29:00 Test Item Value Reference Range Interpretation Comments Lymphocytes (test code = Lymphocytes) 15.5 20.0-40.0 [place] 152042-07-19 09:29:00 Test Item Value Reference Range Interpretation Comments Monocytes (test code = Monocytes) 9.5 2.0-12.0 [facility] HospitalDbcldqzRWELBZBNXQ6361-25-40 09:29:00 Test Item Value Reference Range Interpretation Comments Basophils (test code = 0.2 See_Comment [Aut omated message] The Basophils) system which ge nerated this result tra nsmitted reference range : <=1.0. The reference r samantha was not used to int erpret this result as normal/abnormal . [facility] HospitalTxfyrejLDAAHFDPDS4794-28-72 09:29:00 Test Item Value Reference Range Interpretation Comments Neutrophils # (test code = Neutrophils 3.5 1.5-8.1 #) [facility] HospitalXsvepazRVXOBPGMHV4478-59-86 09:29:00 Test Item Value Reference Range Interpretation Comments Lymphocytes # (test code = Lymphocytes 0.7 1.0-5.5 #) [facility] HospitalYzwpdcuYPDIKTSFDH3318-35-38 09:29:00 Test Item Value Reference Range Interpretation Comments Monocytes # (test code 0.4 See_Comment [Aut omated message] The = Monocytes #) system which generated this result tra nsmitted reference range : <=0.8. The reference r samantha was not used to int erpret this result as normal/abnormal . [facility] HospitalQqbscnnIMPQHGHSEZ9660-57-89 09:29:00 Test Item Value Reference Range Interpretation Comments Macrocyte (test code = 1+ *ABN*(12/16/21 Macrocyte) 4:29 AM) [facility] HospitalUipgxwfWKJISFMOOB0293-08-91 09:29:00 Test Item Value Reference Range Interpretation Comments C-REACTIVE PROTEIN (test code = 19.0 C-REACTIVE PROTEIN) [facility] [id number] 09:29:00 Test Item Value Reference Range Interpretation Comments Glucose Lvl (test code = Glucose Lvl) 199 70-99 [facility] [id number] 09:29:00 Test Item Value Reference Range Interpretation Comments BUN (test code = BUN) 28 - [facility] [id number] 09:29:00 Test Item Value Reference Range Interpretation Comments Creatinine Lvl (test code = Creatinine 4.84 0.50-1.40 Lvl) [facility] [id number] 09:29:00 Test Item Value Reference Range Interpretation Comments Sodium Lvl (test code = Sodium Lvl) 134 135-145 [place] [address]-07-19 09:29:00 Test Item Value Reference Range Interpretation Comments Potassium Lvl (test code = Potassium 4.3 3.5-5.1 Lvl) [place] 074992-07-19 09:29:00 Test Item Value Reference Range Interpretation Comments Chloride Lvl (test code = Chloride Lvl) 100 95-109 [place] 074992-07-19 09:29:00 Test Item Value Reference Range Interpretation Comments CO2 (test code = CO2) 28 24-32 [place] 074992-07-19 09:29:00 Test Item Value Reference Range Interpretation Comments Calcium Lvl (test code = Calcium Lvl) 9.4 8.5-10.5 [place] [address]-07-19 09:29:00 Test Item Value Reference Range Interpretation Comments Total Protein (test code = Total 6.6 6.4-8.4 Protein) [place] [address]-07-19 09:29:00 Test Item Value Reference Range Interpretation Comments Albumin Lvl (test code = Albumin Lvl) 3.0 3.5-5.0 [place] 074992-07-19 09:29:00 Test Item Value Reference Range Interpretation Comments ALT (test code = ALT) 92 See_Comment [Auto mated message] The system which ge nerated this result transmit swathi reference range : <=65. The reference range was not used to interpr et this result as deny l/abnormal. [place] [address]-07-19 09:29:00 Test Item Value Reference Range Interpretation Comments AST (test code = AST) 123 See_Comment [Auto mated message] The system which ge nerated this result transmit swathi reference range : <=37. The reference range was not used to interpr et this result as deny l/abnormal. [place] 074992-07-19 09:29:00 Test Item Value Reference Range Interpretation Comments Alk Phos (test code = Alk Phos) 272 39-136 [place] 074992-07-19 09:29:00 Test Item Value Reference Range Interpretation Comments Bili Total (test code = Bili Total) 0.9 0.2-1.3 [place] [address]-07-19 09:29:00 Test Item Value Reference Range Interpretation Comments AGAP (test code = AGAP) 10.3 10.0-20.0 [place] 074992-07-19 09:29:00 Test Item Value Reference Range Interpretation Comments B/C Ratio (test code = B/C Ratio) 6 1 6-25 [place] 074992-07-19 09:29:00 Test Item Value Reference Range Interpretation Comments Globulin (test code = Globulin) 3.6 2.7-4.2 [place] 074992-07-19 09:29:00 Test Item Value Reference Range Interpretation Comments A/G Ratio (test code = A/G Ratio) 0.8 1 0.7-1.6 [place] 074992-07-19 09:29:00 Test Item Value Reference Range Interpretation Comments eGFR (test code = eGFR) 12 [facility]2022-07-19 09:29:00 Test Item Value Reference Range Interpretation Comments Phosphorus (test code = Phosphorus) 4.3 2.5-4.5 [place] 152042-07-19 09:29:00 Test Item Value Reference Range Interpretation Comments WBC (test code = WBC) 4.7 3.7-10.4 [place] 152042-07-19 09:29:00 Test Item Value Reference Range Interpretation Comments RBC (test code = RBC) 2.14 4.70-6.10 [place] 152042-07-19 09:29:00 Test Item Value Reference Range Interpretation Comments Hgb (test code = Hgb) 7.6 14.0-18.0 [place] 152042-07-19 09:29:00 Test Item Value Reference Range Interpretation Comments Hct (test code = Hct) 22.8 42.0-54.0 [place] 152042-07-19 09:29:00 Test Item Value Reference Range Interpretation Comments MCV (test code = MCV) 106.6 80.0-94.0 [place] [address]-07-19 09:29:00 Test Item Value Reference Range Interpretation Comments MCH (test code = MCH) 35.6 pg 27.0-31.0 [place] 152042-07-19 09:29:00 Test Item Value Reference Range Interpretation Comments MCHC (test code = MCHC) 33.4 32.0-36.0 [place] 152042-07-19 09:29:00 Test Item Value Reference Range Interpretation Comments RDW (test code = RDW) 24.3 11.5-14.5 [place] 152042-07-19 09:29:00 Test Item Value Reference Range Interpretation Comments Platelet (test code = Platelet) 148 133-450 [place] 152042-07-19 09:29:00 Test Item Value Reference Range Interpretation Comments MPV (test code = MPV) 8.1 7.4-10.4 [place] 152042-07-19 09:29:00 Test Item Value Reference Range Interpretation Comments D-Dimer (test code = D-Dimer) 3.63 [place] [address]-07-19 09:29:00 Test Item Value Reference Range Interpretation Comments Segs (test code = Segs) 74.8 45.0-75.0 [place] 152042-07-19 09:29:00 Test Item Value Reference Range Interpretation Comments Lymphocytes (test code = Lymphocytes) 15.5 20.0-40.0 [place] 152042-07-19 09:29:00 Test Item Value Reference Range Interpretation Comments Monocytes (test code = Monocytes) 9.5 2.0-12.0 [place] [address]-07-19 09:29:00 Test Item Value Reference Range Interpretation Comments Basophils (test code = 0.2 See_Comment [Aut omated message] The Basophils) system which ge nerated this result tra nsmitted reference range : <=1.0. The reference r samantha was not used to int erpret this result as normal/abnormal . [facility] HospitalHljczlvWZWMLSTAAC8754-23-73 09:29:00 Test Item Value Reference Range Interpretation Comments Neutrophils # (test code = Neutrophils 3.5 1.5-8.1 #) [place] [address]-07-19 09:29:00 Test Item Value Reference Range Interpretation Comments Lymphocytes # (test code = Lymphocytes 0.7 1.0-5.5 #) [place] [address]-07-19 09:29:00 Test Item Value Reference Range Interpretation Comments Monocytes # (test code 0.4 See_Comment [Aut omated message] The = Monocytes #) system which generated this result tra nsmitted reference range : <=0.8. The reference r samantha was not used to int erpret this result as normal/abnormal . [facility]CMAUSTJHT6076[facility] 09:29:00 Test Item Value Reference Range Interpretation Comments Macrocyte (test code = 1+ *ABN*(12/16/21 Macrocyte) 4:29 AM) [facility] HospitalYnjeevpZGSKFCPZRU0984-16-75 09:29:00 Test Item Value Reference Range Interpretation Comments C-REACTIVE PROTEIN (test code = 19.0 C-REACTIVE PROTEIN) [facility]2022-07-19 09:29:00 Test Item Value Reference Range Interpretation Comments Glucose Lvl (test code = Glucose Lvl) 199 70-99 [place] 074992-07-19 09:29:00 Test Item Value Reference Range Interpretation Comments BUN (test code = BUN) 28 12-19 [place] 074992-07-19 09:29:00 Test Item Value Reference Range Interpretation Comments Creatinine Lvl (test code = Creatinine 4.84 0.50-1.40 Lvl) [facility]2022-07-19 09:29:00 Test Item Value Reference Range Interpretation Comments Sodium Lvl (test code = Sodium Lvl) 134 135-145 [facility]2022-07-19 09:29:00 Test Item Value Reference Range Interpretation Comments Potassium Lvl (test code = Potassium 4.3 3.5-5.1 Lvl) [facility]2022-07-19 09:29:00 Test Item Value Reference Range Interpretation Comments Chloride Lvl (test code = Chloride Lvl) 100 95-109 [place] 074992-07-19 09:29:00 Test Item Value Reference Range Interpretation Comments CO2 (test code = CO2) 28 24-32 [place] 074992-07-19 09:29:00 Test Item Value Reference Range Interpretation Comments Calcium Lvl (test code = Calcium Lvl) 9.4 8.5-10.5 [place] 074992-07-19 09:29:00 Test Item Value Reference Range Interpretation Comments Total Protein (test code = Total 6.6 6.4-8.4 Protein) [place] 074992-07-19 09:29:00 Test Item Value Reference Range Interpretation Comments Albumin Lvl (test code = Albumin Lvl) 3.0 3.5-5.0 [facility] [id number] 09:29:00 Test Item Value Reference Range Interpretation Comments ALT (test code = ALT) 92 See_Comment [Auto mated message] The system which ge nerated this result transmit swathi reference range : <=65. The reference range was not used to interpr et this result as deny l/abnormal. [facility] [id number] 09:29:00 Test Item Value Reference Range Interpretation Comments AST (test code = AST) 123 See_Comment [Auto mated message] The system which ge nerated this result transmit swathi reference range : <=37. The reference range was not used to interpr et this result as deny l/abnormal. [facility] [id number] 09:29:00 Test Item Value Reference Range Interpretation Comments Alk Phos (test code = Alk Phos) 272 39-136 [facility] [id number] 09:29:00 Test Item Value Reference Range Interpretation Comments Bili Total (test code = Bili Total) 0.9 0.2-1.3 [facility] [id number] 09:29:00 Test Item Value Reference Range Interpretation Comments AGAP (test code = AGAP) 10.3 10.0-20.0 [facility] [id number] 09:29:00 Test Item Value Reference Range Interpretation Comments B/C Ratio (test code = B/C Ratio) 6 1 6-25 [facility] [id number] 09:29:00 Test Item Value Reference Range Interpretation Comments Globulin (test code = Globulin) 3.6 2.7-4.2 [facility] [id number] 09:29:00 Test Item Value Reference Range Interpretation Comments A/G Ratio (test code = A/G Ratio) 0.8 1 0.7-1.6 [facility] [id number] 09:29:00 Test Item Value Reference Range Interpretation Comments eGFR (test code = eGFR) 12 [facility] [id number] 09:29:00 Test Item Value Reference Range Interpretation Comments Phosphorus (test code = Phosphorus) 4.3 2.5-4.5 [facility]WbbljmwHOEFMSTROU3711-28-03 09:29:00 Test Item Value Reference Range Interpretation Comments WBC (test code = WBC) 4.7 3.7-10.4 [facility]MzewqeaOLGDOPUPRT6336-20-04 09:29:00 Test Item Value Reference Range Interpretation Comments RBC (test code = RBC) 2.14 4.70-6.10 [facility] HospitalMzpjsrnMARILFFJWP5362-88-38 09:29:00 Test Item Value Reference Range Interpretation Comments Hgb (test code = Hgb) 7.6 14.0-18.0 [facility] HospitalVivlxtjVMOWSALHUW8599-95-25 09:29:00 Test Item Value Reference Range Interpretation Comments Hct (test code = Hct) 22.8 42.0-54.0 [facility] HospitalArrilhzRTCMCLDHVM4178-11-28 09:29:00 Test Item Value Reference Range Interpretation Comments MCV (test code = MCV) 106.6 80.0-94.0 [facility] HospitalNjzqjkzWBKBQUBQKM6390-19-15 09:29:00 Test Item Value Reference Range Interpretation Comments MCH (test code = MCH) 35.6 pg 27.0-31.0 [facility] HospitalEiszlfhIFDPNDUVAN0058-02-43 09:29:00 Test Item Value Reference Range Interpretation Comments MCHC (test code = MCHC) 33.4 32.0-36.0 [facility] HospitalMiwwpolERQWILFSWS8744-78-48 09:29:00 Test Item Value Reference Range Interpretation Comments RDW (test code = RDW) 24.3 11.5-14.5 [facility] HospitalHcidzqdEGRGZIWNKM9681-73-85 09:29:00 Test Item Value Reference Range Interpretation Comments Platelet (test code = Platelet) 148 133-450 [facility] HospitalNrrqrmmUJVCBGTRAW6105-60-98 09:29:00 Test Item Value Reference Range Interpretation Comments MPV (test code = MPV) 8.1 7.4-10.4 [facility] HospitalFnnmevdMXBIDCPEQQ0158-06-54 09:29:00 Test Item Value Reference Range Interpretation Comments D-Dimer (test code = D-Dimer) 3.63 [facility] HospitalCzddiacRZAKSUZYBV2965-92-57 09:29:00 Test Item Value Reference Range Interpretation Comments Segs (test code = Segs) 74.8 45.0-75.0 [facility] HospitalSvuaxkjCNSYDVFPWW5592-76-76 09:29:00 Test Item Value Reference Range Interpretation Comments Lymphocytes (test code = Lymphocytes) 15.5 20.0-40.0 [facility] HospitalQufnlijOQOXYYVSPD7976-69-65 09:29:00 Test Item Value Reference Range Interpretation Comments Monocytes (test code = Monocytes) 9.5 2.0-12.0 [facility] HospitalIfybswzDRVPGWXKSB6348-41-20 09:29:00 Test Item Value Reference Range Interpretation Comments Basophils (test code = 0.2 See_Comment [Aut omated message] The Basophils) system which ge nerated this result tra nsmitted reference range : <=1.0. The reference r samantha was not used to int erpret this result as normal/abnormal . [facility] HospitalFfwnbniKGXBJSTGIU2054-16-98 09:29:00 Test Item Value Reference Range Interpretation Comments Neutrophils # (test code = Neutrophils 3.5 1.5-8.1 #) [facility] HospitalDwfloghCHOLGSYWZI0188-99-17 09:29:00 Test Item Value Reference Range Interpretation Comments Lymphocytes # (test code = Lymphocytes 0.7 1.0-5.5 #) [facility] HospitalNknyxihRELKTIWCFP7335-78-64 09:29:00 Test Item Value Reference Range Interpretation Comments Monocytes # (test code 0.4 See_Comment [Aut omated message] The = Monocytes #) system which generated this result tra nsmitted reference range : <=0.8. The reference r samantha was not used to int erpret this result as normal/abnormal . [facility] HospitalBnlfmstYHRDWXPVHX1666-06-65 09:29:00 Test Item Value Reference Range Interpretation Comments Macrocyte (test code = 1+ *ABN*(12/16/21 Macrocyte) 4:29 AM) [facility] HospitalTutlbygNNPSDLUZKN7270-54-53 09:29:00 Test Item Value Reference Range Interpretation Comments C-REACTIVE PROTEIN (test code = 19.0 C-REACTIVE PROTEIN) [facility] [id number] 09:29:00 Test Item Value Reference Range Interpretation Comments Glucose Lvl (test code = Glucose Lvl) 199 70-99 [facility] [id number] 09:29:00 Test Item Value Reference Range Interpretation Comments BUN (test code = BUN) 28 - [facility] [id number] 09:29:00 Test Item Value Reference Range Interpretation Comments Creatinine Lvl (test code = Creatinine 4.84 0.50-1.40 Lvl) [place] 074992-07-19 09:29:00 Test Item Value Reference Range Interpretation Comments Sodium Lvl (test code = Sodium Lvl) 134 135-145 [place] 074992-07-19 09:29:00 Test Item Value Reference Range Interpretation Comments Potassium Lvl (test code = Potassium 4.3 3.5-5.1 Lvl) [place] [address]-07-19 09:29:00 Test Item Value Reference Range Interpretation Comments Chloride Lvl (test code = Chloride Lvl) 100 95-109 [place] [address]-07-19 09:29:00 Test Item Value Reference Range Interpretation Comments CO2 (test code = CO2) 28 24-32 [place] [address]-07-19 09:29:00 Test Item Value Reference Range Interpretation Comments Calcium Lvl (test code = Calcium Lvl) 9.4 8.5-10.5 [place] 074992-07-19 09:29:00 Test Item Value Reference Range Interpretation Comments Total Protein (test code = Total 6.6 6.4-8.4 Protein) [place] 074992-07-19 09:29:00 Test Item Value Reference Range Interpretation Comments Albumin Lvl (test code = Albumin Lvl) 3.0 3.5-5.0 [place] 074992-07-19 09:29:00 Test Item Value Reference Range Interpretation Comments ALT (test code = ALT) 92 See_Comment [Auto mated message] The system which ge nerated this result transmit swathi reference range : <=65. The reference range was not used to interpr et this result as deny l/abnormal. [place] 074992-07-19 09:29:00 Test Item Value Reference Range Interpretation Comments AST (test code = AST) 123 See_Comment [Auto mated message] The system which ge nerated this result transmit swathi reference range : <=37. The reference range was not used to interpr et this result as deny l/abnormal. [place] [address]-07-19 09:29:00 Test Item Value Reference Range Interpretation Comments Alk Phos (test code = Alk Phos) 272 39-136 [place] 074992-07-19 09:29:00 Test Item Value Reference Range Interpretation Comments Bili Total (test code = Bili Total) 0.9 0.2-1.3 [facility]2022-07-19 09:29:00 Test Item Value Reference Range Interpretation Comments AGAP (test code = AGAP) 10.3 10.0-20.0 [facility]2022-07-19 09:29:00 Test Item Value Reference Range Interpretation Comments B/C Ratio (test code = B/C Ratio) 6 1 6-25 [place] 074992-07-19 09:29:00 Test Item Value Reference Range Interpretation Comments Globulin (test code = Globulin) 3.6 2.7-4.2 [place] 074992-07-19 09:29:00 Test Item Value Reference Range Interpretation Comments A/G Ratio (test code = A/G Ratio) 0.8 1 0.7-1.6 [place] 074992-07-19 09:29:00 Test Item Value Reference Range Interpretation Comments eGFR (test code = eGFR) 12 [facility]2022-07-19 09:29:00 Test Item Value Reference Range Interpretation Comments Phosphorus (test code = Phosphorus) 4.3 2.5-4.5 [facility] HospitalTmezicbAGLFCVXOND4696-96-58 09:29:00 Test Item Value Reference Range Interpretation Comments WBC (test code = WBC) 4.7 3.7-10.4 [facility] HospitalHjrgglgFDYFPHFPVW9712-92-66 09:29:00 Test Item Value Reference Range Interpretation Comments RBC (test code = RBC) 2.14 4.70-6.10 [facility] HospitalBmofnrsIVYQJOXJBC3688-35-41 09:29:00 Test Item Value Reference Range Interpretation Comments Hgb (test code = Hgb) 7.6 14.0-18.0 [place] 152042-07-19 09:29:00 Test Item Value Reference Range Interpretation Comments Hct (test code = Hct) 22.8 42.0-54.0 [place] 152042-07-19 09:29:00 Test Item Value Reference Range Interpretation Comments MCV (test code = MCV) 106.6 80.0-94.0 [place] 152042-07-19 09:29:00 Test Item Value Reference Range Interpretation Comments MCH (test code = MCH) 35.6 pg 27.0-31.0 [place] 152042-07-19 09:29:00 Test Item Value Reference Range Interpretation Comments MCHC (test code = MCHC) 33.4 32.0-36.0 [place] [address]-07-19 09:29:00 Test Item Value Reference Range Interpretation Comments RDW (test code = RDW) 24.3 11.5-14.5 [place] 152042-07-19 09:29:00 Test Item Value Reference Range Interpretation Comments Platelet (test code = Platelet) 148 133-450 [place] 152042-07-19 09:29:00 Test Item Value Reference Range Interpretation Comments MPV (test code = MPV) 8.1 7.4-10.4 [place] [address]-07-19 09:29:00 Test Item Value Reference Range Interpretation Comments D-Dimer (test code = D-Dimer) 3.63 [place] 152042-07-19 09:29:00 Test Item Value Reference Range Interpretation Comments Segs (test code = Segs) 74.8 45.0-75.0 [place] 152042-07-19 09:29:00 Test Item Value Reference Range Interpretation Comments Lymphocytes (test code = Lymphocytes) 15.5 20.0-40.0 [place] 152042-07-19 09:29:00 Test Item Value Reference Range Interpretation Comments Monocytes (test code = Monocytes) 9.5 2.0-12.0 [place] 152042-07-19 09:29:00 Test Item Value Reference Range Interpretation Comments Basophils (test code = 0.2 See_Comment [Aut omated message] The Basophils) system which ge nerated this result tra nsmitted reference range : <=1.0. The reference r samantha was not used to int erpret this result as normal/abnormal . [place] 152042-07-19 09:29:00 Test Item Value Reference Range Interpretation Comments Neutrophils # (test code = Neutrophils 3.5 1.5-8.1 #) [place] 152042-07-19 09:29:00 Test Item Value Reference Range Interpretation Comments Lymphocytes # (test code = Lymphocytes 0.7 1.0-5.5 #) [place] 152042-07-19 09:29:00 Test Item Value Reference Range Interpretation Comments Monocytes # (test code 0.4 See_Comment [Aut omated message] The = Monocytes #) system which generated this result tra nsmitted reference range : <=0.8. The reference r samantha was not used to int erpret this result as normal/abnormal . [facility] 09:29:00 Test Item Value Reference Range Interpretation Comments Macrocyte (test code = 1+ *ABN*(12/16/21 Macrocyte) 4:29 AM) [facility] HospitalFkvhqxsJPIMOKNDBZ9956-11-43 09:29:00 Test Item Value Reference Range Interpretation Comments C-REACTIVE PROTEIN (test code = 19.0 C-REACTIVE PROTEIN) [facility]2022-07-19 09:29:00 Test Item Value Reference Range Interpretation Comments Glucose Lvl (test code = Glucose Lvl) 199 70-99 [facility]2022-07-19 09:29:00 Test Item Value Reference Range Interpretation Comments BUN (test code = BUN) 28 - [place] 074992-07-19 09:29:00 Test Item Value Reference Range Interpretation Comments Creatinine Lvl (test code = Creatinine 4.84 0.50-1.40 Lvl) [place] 074992-07-19 09:29:00 Test Item Value Reference Range Interpretation Comments Sodium Lvl (test code = Sodium Lvl) 134 135-145 [facility]2022-07-19 09:29:00 Test Item Value Reference Range Interpretation Comments Potassium Lvl (test code = Potassium 4.3 3.5-5.1 Lvl) [place] 074992-07-19 09:29:00 Test Item Value Reference Range Interpretation Comments Chloride Lvl (test code = Chloride Lvl) 100 95-109 [place] 074992-07-19 09:29:00 Test Item Value Reference Range Interpretation Comments CO2 (test code = CO2) 28 24-32 [place] 074992-07-19 09:29:00 Test Item Value Reference Range Interpretation Comments Calcium Lvl (test code = Calcium Lvl) 9.4 8.5-10.5 [place] 074992-07-19 09:29:00 Test Item Value Reference Range Interpretation Comments Total Protein (test code = Total 6.6 6.4-8.4 Protein) [facility] HospitalBu[facility] IncDEVIN [place] [id number] 09:29:00 Test Item Value Reference Range Interpretation Comments Albumin Lvl (test code = Albumin Lvl) 3.0 3.5-5.0 [facility] [id number] 09:29:00 Test Item Value Reference Range Interpretation Comments ALT (test code = ALT) 92 See_Comment [Auto mated message] The system which ge nerated this result transmit swathi reference range : <=65. The reference range was not used to interpr et this result as deny l/abnormal. [facility] [id number] 09:29:00 Test Item Value Reference Range Interpretation Comments AST (test code = AST) 123 See_Comment [Auto mated message] The system which ge nerated this result transmit swathi reference range : <=37. The reference range was not used to interpr et this result as deny l/abnormal. [facility] [id number] 09:29:00 Test Item Value Reference Range Interpretation Comments Alk Phos (test code = Alk Phos) 272 39-136 [facility] [id number] 09:29:00 Test Item Value Reference Range Interpretation Comments Bili Total (test code = Bili Total) 0.9 0.2-1.3 [facility] [id number] 09:29:00 Test Item Value Reference Range Interpretation Comments AGAP (test code = AGAP) 10.3 10.0-20.0 [facility] [id number] 09:29:00 Test Item Value Reference Range Interpretation Comments B/C Ratio (test code = B/C Ratio) 6 1 6-25 [facility] [id number] 09:29:00 Test Item Value Reference Range Interpretation Comments Globulin (test code = Globulin) 3.6 2.7-4.2 [facility] [id number] 09:29:00 Test Item Value Reference Range Interpretation Comments A/G Ratio (test code = A/G Ratio) 0.8 1 0.7-1.6 [facility] [id number] 09:29:00 Test Item Value Reference Range Interpretation Comments eGFR (test code = eGFR) 12 [facility] [id number] 09:29:00 Test Item Value Reference Range Interpretation Comments Phosphorus (test code = Phosphorus) 4.3 2.5-4.5 [facility] HospitalGxcgsgtZMJTEUSUUB4631-29-35 09:29:00 Test Item Value Reference Range Interpretation Comments WBC (test code = WBC) 4.7 3.7-10.4 [facility] HospitalCrcihyqOVZXXPUACP5720-11-88 09:29:00 Test Item Value Reference Range Interpretation Comments RBC (test code = RBC) 2.14 4.70-6.10 [facility] HospitalHoumlznHAHRSWDJJB4173-23-55 09:29:00 Test Item Value Reference Range Interpretation Comments Hgb (test code = Hgb) 7.6 14.0-18.0 [facility] HospitalYkqzlguPQGSWMMBIF3331-94-86 09:29:00 Test Item Value Reference Range Interpretation Comments Hct (test code = Hct) 22.8 42.0-54.0 [place] 152042-07-19 09:29:00 Test Item Value Reference Range Interpretation Comments MCV (test code = MCV) 106.6 80.0-94.0 [facility] HospitalBjgwbpuUJHODZPMAJ6720-69-15 09:29:00 Test Item Value Reference Range Interpretation Comments MCH (test code = MCH) 35.6 pg 27.0-31.0 [facility] HospitalNeljxwzJWQQURQMVX8163-43-04 09:29:00 Test Item Value Reference Range Interpretation Comments MCHC (test code = MCHC) 33.4 32.0-36.0 [facility] HospitalPixlywxPKMRQBJDWC2136-60-03 09:29:00 Test Item Value Reference Range Interpretation Comments RDW (test code = RDW) 24.3 11.5-14.5 [facility] HospitalYcvoxjfGILARLBQBU6631-50-41 09:29:00 Test Item Value Reference Range Interpretation Comments Platelet (test code = Platelet) 148 133-450 [facility] HospitalUumlizoGBETTLEXTB9421-44-44 09:29:00 Test Item Value Reference Range Interpretation Comments MPV (test code = MPV) 8.1 7.4-10.4 [facility] HospitalElopivkKDMELOCSDU5106-72-17 09:29:00 Test Item Value Reference Range Interpretation Comments D-Dimer (test code = D-Dimer) 3.63 [facility] HospitalKmtukktELRYAUMCNI0164-93-96 09:29:00 Test Item Value Reference Range Interpretation Comments Segs (test code = Segs) 74.8 45.0-75.0 [facility] HospitalHmlzztyJZGXCMKMHH2094-22-12 09:29:00 Test Item Value Reference Range Interpretation Comments Lymphocytes (test code = Lymphocytes) 15.5 20.0-40.0 [facility] HospitalCyljwdrBPCSYRJJTB9549-70-98 09:29:00 Test Item Value Reference Range Interpretation Comments Monocytes (test code = Monocytes) 9.5 2.0-12.0 [facility] HospitalDjkzyvqBVROBXKOPR7879-30-07 09:29:00 Test Item Value Reference Range Interpretation Comments Basophils (test code = 0.2 See_Comment [Aut omated message] The Basophils) system which ge nerated this result tra nsmitted reference range : <=1.0. The reference r samantha was not used to int erpret this result as normal/abnormal . [facility] HospitalJemaqqfNDEEQWSADX2902-51-60 09:29:00 Test Item Value Reference Range Interpretation Comments Neutrophils # (test code = Neutrophils 3.5 1.5-8.1 #) [facility] HospitalZmrrlxhDBGQLWDQAF0395-41-28 09:29:00 Test Item Value Reference Range Interpretation Comments Lymphocytes # (test code = Lymphocytes 0.7 1.0-5.5 #) [facility] HospitalDwobbjkQRVDQSYBKC1544-95-90 09:29:00 Test Item Value Reference Range Interpretation Comments Monocytes # (test code 0.4 See_Comment [Aut omated message] The = Monocytes #) system which generated this result tra nsmitted reference range : <=0.8. The reference r samantha was not used to int erpret this result as normal/abnormal . [facility] HospitalRnbyjzbQXGKTHGXLL2636-11-49 09:29:00 Test Item Value Reference Range Interpretation Comments Macrocyte (test code = 1+ *ABN*(12/16/21 Macrocyte) 4:29 AM) [facility] HospitalOerzeylFMIECFPOFS9847-81-53 09:29:00 Test Item Value Reference Range Interpretation Comments C-REACTIVE PROTEIN (test code = 19.0 C-REACTIVE PROTEIN) [facility] [id number] 09:29:00 Test Item Value Reference Range Interpretation Comments Glucose Lvl (test code = Glucose Lvl) 199 70-99 [facility] [id number] 09:29:00 Test Item Value Reference Range Interpretation Comments BUN (test code = BUN) 28 12-19 [facility] HospitalannDEVIN [place] [id number] 09:29:00 Test Item Value Reference Range Interpretation Comments Creatinine Lvl (test code = Creatinine 4.84 0.50-1.40 Lvl) [address]07-19 09:29:00 Test Item Value Reference Range Interpretation Comments Sodium Lvl (test code = Sodium Lvl) 134 135-145 [place] [address]-07-19 09:29:00 Test Item Value Reference Range Interpretation Comments Potassium Lvl (test code = Potassium 4.3 3.5-5.1 Lvl) [place] [address]-07-19 09:29:00 Test Item Value Reference Range Interpretation Comments Chloride Lvl (test code = Chloride Lvl) 100 95-109 [address]07-19 09:29:00 Test Item Value Reference Range Interpretation Comments CO2 (test code = CO2) 28 24-32 [address]07-19 09:29:00 Test Item Value Reference Range Interpretation Comments Calcium Lvl (test code = Calcium Lvl) 9.4 8.5-10.5 [place] 074992-07-19 09:29:00 Test Item Value Reference Range Interpretation Comments Total Protein (test code = Total 6.6 6.4-8.4 Protein) [place] [address]-07-19 09:29:00 Test Item Value Reference Range Interpretation Comments Albumin Lvl (test code = Albumin Lvl) 3.0 3.5-5.0 [place] [address]-07-19 09:29:00 Test Item Value Reference Range Interpretation Comments ALT (test code = ALT) 92 See_Comment [Auto mated message] The system which ge nerated this result transmit swathi reference range : <=65. The reference range was not used to interpr et this result as deny l/abnormal. [facility] HospitalEquals6 [id number] 09:29:00 Test Item Value Reference Range Interpretation Comments AST (test code = AST) 123 See_Comment [Auto mated message] The system which ge nerated this result transmit swathi reference range : <=37. The reference range was not used to interpr et this result as deny l/abnormal. [facility] HospitalEquals6 [id number] 09:29:00 Test Item Value Reference Range Interpretation Comments Alk Phos (test code = Alk Phos) 272 39-136 [facility]2022-07-19 09:29:00 Test Item Value Reference Range Interpretation Comments Bili Total (test code = Bili Total) 0.9 0.2-1.3 [place] 074992-07-19 09:29:00 Test Item Value Reference Range Interpretation Comments AGAP (test code = AGAP) 10.3 10.0-20.0 [facility]2022-07-19 09:29:00 Test Item Value Reference Range Interpretation Comments B/C Ratio (test code = B/C Ratio) 6 1 6-25 [place] 074992-07-19 09:29:00 Test Item Value Reference Range Interpretation Comments Globulin (test code = Globulin) 3.6 2.7-4.2 [facility]2022-07-19 09:29:00 Test Item Value Reference Range Interpretation Comments A/G Ratio (test code = A/G Ratio) 0.8 1 0.7-1.6 [place] 074992-07-19 09:29:00 Test Item Value Reference Range Interpretation Comments eGFR (test code = eGFR) 12 [facility]2022-07-19 09:29:00 Test Item Value Reference Range Interpretation Comments Phosphorus (test code = Phosphorus) 4.3 2.5-4.5 [facility] HospitalQyuhdmbYVMPCOHUET6832-32-66 09:29:00 Test Item Value Reference Range Interpretation Comments WBC (test code = WBC) 4.7 3.7-10.4 [place] 152042-07-19 09:29:00 Test Item Value Reference Range Interpretation Comments RBC (test code = RBC) 2.14 4.70-6.10 [place] 152042-07-19 09:29:00 Test Item Value Reference Range Interpretation Comments Hgb (test code = Hgb) 7.6 14.0-18.0 [place] 152042-07-19 09:29:00 Test Item Value Reference Range Interpretation Comments Hct (test code = Hct) 22.8 42.0-54.0 [place] 152042-07-19 09:29:00 Test Item Value Reference Range Interpretation Comments MCV (test code = MCV) 106.6 80.0-94.0 [place] 152042-07-19 09:29:00 Test Item Value Reference Range Interpretation Comments MCH (test code = MCH) 35.6 pg 27.0-31.0 [place] 152042-07-19 09:29:00 Test Item Value Reference Range Interpretation Comments MCHC (test code = MCHC) 33.4 32.0-36.0 [facility] HospitalJygtmqjOBUPBQDGZN9126-75-38 09:29:00 Test Item Value Reference Range Interpretation Comments RDW (test code = RDW) 24.3 11.5-14.5 [place] 152042-07-19 09:29:00 Test Item Value Reference Range Interpretation Comments Platelet (test code = Platelet) 148 133-450 [place] 152042-07-19 09:29:00 Test Item Value Reference Range Interpretation Comments MPV (test code = MPV) 8.1 7.4-10.4 [place] 152042-07-19 09:29:00 Test Item Value Reference Range Interpretation Comments D-Dimer (test code = D-Dimer) 3.63 [place] 152042-07-19 09:29:00 Test Item Value Reference Range Interpretation Comments Segs (test code = Segs) 74.8 45.0-75.0 [facility] HospitalTpovxoeSPBDVEZKBB5742-84-08 09:29:00 Test Item Value Reference Range Interpretation Comments Lymphocytes (test code = Lymphocytes) 15.5 20.0-40.0 [place] 152042-07-19 09:29:00 Test Item Value Reference Range Interpretation Comments Monocytes (test code = Monocytes) 9.5 2.0-12.0 [place] [address]-07-19 09:29:00 Test Item Value Reference Range Interpretation Comments Basophils (test code = 0.2 See_Comment [Aut omated message] The Basophils) system which ge nerated this result tra nsmitted reference range : <=1.0. The reference r samantha was not used to int erpret this result as normal/abnormal . [facility]ScjdbjhTIEWQLICRO8409-32-56 09:29:00 Test Item Value Reference Range Interpretation Comments Neutrophils # (test code = Neutrophils 3.5 1.5-8.1 #) [place] 152042-07-19 09:29:00 Test Item Value Reference Range Interpretation Comments Lymphocytes # (test code = Lymphocytes 0.7 1.0-5.5 #) [facility] HospitalGgbfachFGSIPWROHF1127-82-18 09:29:00 Test Item Value Reference Range Interpretation Comments Monocytes # (test code 0.4 See_Comment [Aut omated message] The = Monocytes #) system which generated this result tra nsmitted reference range : <=0.8. The reference r samantha was not used to int erpret this result as normal/abnormal . [facility] HospitalZllafctLBOGQHIYLE1029-82-57 09:29:00 Test Item Value Reference Range Interpretation Comments Macrocyte (test code = 1+ *ABN*(12/16/21 Macrocyte) 4:29 AM) [facility] HospitalZaautlsZSXOPNOLDV3448-37-21 09:29:00 Test Item Value Reference Range Interpretation Comments C-REACTIVE PROTEIN (test code = 19.0 C-REACTIVE PROTEIN) [place] 074992-07-19 09:29:00 Test Item Value Reference Range Interpretation Comments Glucose Lvl (test code = Glucose Lvl) 199 70-99 [facility]2022-07-19 09:29:00 Test Item Value Reference Range Interpretation Comments BUN (test code = BUN) 28 - [place] 074992-07-19 09:29:00 Test Item Value Reference Range Interpretation Comments Creatinine Lvl (test code = Creatinine 4.84 0.50-1.40 Lvl) [facility]2022-07-19 09:29:00 Test Item Value Reference Range Interpretation Comments Sodium Lvl (test code = Sodium Lvl) 134 135-145 [facility]2022-07-19 09:29:00 Test Item Value Reference Range Interpretation Comments Potassium Lvl (test code = Potassium 4.3 3.5-5.1 Lvl) [place] 074992-07-19 09:29:00 Test Item Value Reference Range Interpretation Comments Chloride Lvl (test code = Chloride Lvl) 100 95-109 [place] 074992-07-19 09:29:00 Test Item Value Reference Range Interpretation Comments CO2 (test code = CO2) 28 24-32 [place] 074992-07-19 09:29:00 Test Item Value Reference Range Interpretation Comments Calcium Lvl (test code = Calcium Lvl) 9.4 8.5-10.5 [place] [address]-07-19 09:29:00 Test Item Value Reference Range Interpretation Comments Total Protein (test code = Total 6.6 6.4-8.4 Protein) [place] [address]-07-19 09:29:00 Test Item Value Reference Range Interpretation Comments Albumin Lvl (test code = Albumin Lvl) 3.0 3.5-5.0 [place] 074992-07-19 09:29:00 Test Item Value Reference Range Interpretation Comments ALT (test code = ALT) 92 See_Comment [Auto mated message] The system which ge nerated this result transmit swathi reference range : <=65. The reference range was not used to interpr et this result as deny l/abnormal. [place] 074992-07-19 09:29:00 Test Item Value Reference Range Interpretation Comments AST (test code = AST) 123 See_Comment [Auto mated message] The system which ge nerated this result transmit swathi reference range : <=37. The reference range was not used to interpr et this result as deny l/abnormal. [place] 074992-07-19 09:29:00 Test Item Value Reference Range Interpretation Comments Alk Phos (test code = Alk Phos) 272 39-136 [facility] [id number] 09:29:00 Test Item Value Reference Range Interpretation Comments Bili Total (test code = Bili Total) 0.9 0.2-1.3 [place] 074992-07-19 09:29:00 Test Item Value Reference Range Interpretation Comments AGAP (test code = AGAP) 10.3 10.0-20.0 [facility] [id number] 09:29:00 Test Item Value Reference Range Interpretation Comments B/C Ratio (test code = B/C Ratio) 6 1 6-25 [facility] [id number] 09:29:00 Test Item Value Reference Range Interpretation Comments Globulin (test code = Globulin) 3.6 2.7-4.2 [place] 074992-07-19 09:29:00 Test Item Value Reference Range Interpretation Comments A/G Ratio (test code = A/G Ratio) 0.8 1 0.7-1.6 [facility] [id number] 09:29:00 Test Item Value Reference Range Interpretation Comments eGFR (test code = eGFR) 12 [facility]2022-07-19 09:29:00 Test Item Value Reference Range Interpretation Comments Phosphorus (test code = Phosphorus) 4.3 2.5-4.5 [place] 152042-07-19 09:29:00 Test Item Value Reference Range Interpretation Comments WBC (test code = WBC) 4.7 3.7-10.4 [facility] HospitalVwjmxkiENAKMCRNGF1159-40-18 09:29:00 Test Item Value Reference Range Interpretation Comments RBC (test code = RBC) 2.14 4.70-6.10 [facility] HospitalLzngdzvQAPHGODCSH5749-20-74 09:29:00 Test Item Value Reference Range Interpretation Comments Hgb (test code = Hgb) 7.6 14.0-18.0 [place] 152042-07-19 09:29:00 Test Item Value Reference Range Interpretation Comments Hct (test code = Hct) 22.8 42.0-54.0 [facility] HospitalDxfvazlGNIYQGOMBY6583-78-62 09:29:00 Test Item Value Reference Range Interpretation Comments MCV (test code = MCV) 106.6 80.0-94.0 [place] 152042-07-19 09:29:00 Test Item Value Reference Range Interpretation Comments MCH (test code = MCH) 35.6 pg 27.0-31.0 [facility] HospitalLpmnfuuOXYFQADGLF3601-74-14 09:29:00 Test Item Value Reference Range Interpretation Comments MCHC (test code = MCHC) 33.4 32.0-36.0 [facility] HospitalSazzrgpFNKEURKIKX0040-14-12 09:29:00 Test Item Value Reference Range Interpretation Comments RDW (test code = RDW) 24.3 11.5-14.5 [place] 152042-07-19 09:29:00 Test Item Value Reference Range Interpretation Comments Platelet (test code = Platelet) 148 133-450 [facility] HospitalXfrfanuYRBFBLYADR0049-15-75 09:29:00 Test Item Value Reference Range Interpretation Comments MPV (test code = MPV) 8.1 7.4-10.4 [facility] HospitalRabmhczDBZVWFLDSA5319-62-11 09:29:00 Test Item Value Reference Range Interpretation Comments D-Dimer (test code = D-Dimer) 3.63 [place] 152042-07-19 09:29:00 Test Item Value Reference Range Interpretation Comments Segs (test code = Segs) 74.8 45.0-75.0 [place] 152042-07-19 09:29:00 Test Item Value Reference Range Interpretation Comments Lymphocytes (test code = Lymphocytes) 15.5 20.0-40.0 [place] 152042-07-19 09:29:00 Test Item Value Reference Range Interpretation Comments Monocytes (test code = Monocytes) 9.5 2.0-12.0 [place] 152042-07-19 09:29:00 Test Item Value Reference Range Interpretation Comments Basophils (test code = 0.2 See_Comment [Aut omated message] The Basophils) system which ge nerated this result tra nsmitted reference range : <=1.0. The reference r samantha was not used to int erpret this result as normal/abnormal . [facility] HospitalCnjzknbGNIVWYRWRZ7393-39-86 09:29:00 Test Item Value Reference Range Interpretation Comments Neutrophils # (test code = Neutrophils 3.5 1.5-8.1 #) [facility] HospitalTsrmcflQHAXYCONHA8933-26-87 09:29:00 Test Item Value Reference Range Interpretation Comments Lymphocytes # (test code = Lymphocytes 0.7 1.0-5.5 #) [facility] HospitalWxqqaccIAASDRIDVN5794-12-65 09:29:00 Test Item Value Reference Range Interpretation Comments Monocytes # (test code 0.4 See_Comment [Aut omated message] The = Monocytes #) system which generated this result tra nsmitted reference range : <=0.8. The reference r samantha was not used to int erpret this result as normal/abnormal . [facility] HospitalSdoodvbTWMSDYNUHR5854-63-67 09:29:00 Test Item Value Reference Range Interpretation Comments Macrocyte (test code = 1+ *ABN*(12/16/21 Macrocyte) 4:29 AM) [place] 115822-07-19 09:29:00 Test Item Value Reference Range Interpretation Comments C-REACTIVE PROTEIN (test code = 19.0 C-REACTIVE PROTEIN) [facility]ODDNXVGD6247-76-30 02:28:00 Test Item Value Reference Range Interpretation Comments Hep Bs Ag (test code Negative *NA*(12/15/21 = Hep Bs Ag) 9:28 PM) [facility] VvzfchyNDSWURUPXH6299-50-97 02:28:00 Test Item Value Reference Range Interpretation Comments Hep Bs Ag (test code Negative *NA*(12/15/21 = Hep Bs Ag) 9:28 PM) [facility] WajgutmWTQLYUENPJ4088-01-22 02:28:00 Test Item Value Reference Range Interpretation Comments Hep Bs Ag (test code Negative *NA*(12/15/21 = Hep Bs Ag) 9:28 PM) [facility] NjtipdeWJANXZPBLX5449-52-45 02:28:00 Test Item Value Reference Range Interpretation Comments Hep Bs Ag (test code Negative *NA*(12/15/21 = Hep Bs Ag) 9:28 PM) [facility] YzqkpymHDXLLRRTOD0588-63-19 02:28:00 Test Item Value Reference Range Interpretation Comments Hep Bs Ag (test code Negative *NA*(12/15/21 = Hep Bs Ag) 9:28 PM) [facility] DlxhljyGYWGTFNAYD0167-78-94 02:28:00 Test Item Value Reference Range Interpretation Comments Hep Bs Ag (test code Negative *NA*(12/15/21 = Hep Bs Ag) 9:28 PM) [facility] CkdamosNDPHMUFQBB4638-60-17 02:28:00 Test Item Value Reference Range Interpretation Comments Hep Bs Ag (test code Negative *NA*(12/15/21 = Hep Bs Ag) 9:28 PM) [facility] XsghocrBZEVLRQNFK3271-63-34 02:28:00 Test Item Value Reference Range Interpretation Comments Hep Bs Ag (test code Negative *NA*(12/15/21 = Hep Bs Ag) 9:28 PM) [facility] SakvuhbJGWXXJKARQ5654-45-36 02:28:00 Test Item Value Reference Range Interpretation Comments Hep Bs Ag (test code Negative *NA*(12/15/21 = Hep Bs Ag) 9:28 PM) [facility] IgbgjbsBDVOQSZQZM5197-65-75 02:28:00 Test Item Value Reference Range Interpretation Comments Hep Bs Ag (test code Negative *NA*(12/15/21 = Hep Bs Ag) 9:28 PM) [facility]ann[facility] Cfkfjb7978-12-56 17:16:00 Test Item Value Reference Range Interpretation Comments Gram Stain Report Gram Stain Performed By: (test code = [facility] [place] Stain Report) [facility] Res[facility] w/Gram [id number] 17:16:00 Test Item Value Reference Range Interpretation Comments Culture: Respiratory Moderate Yeast Normal w/Gram Stain (test code Respiratory Lyndsay = Culture: Respiratory Isolated w/Gram Stain) [facility] Drcjgq5241-55-06 17:16:00 Test Item Value Reference Range Interpretation Comments Gram Stain Report Gram Stain Performed By: (test code = [facility] [place] Stain Report) [facility]: Respiratory w/Gram Czehm2323-92-34 17:16:00 Test Item Value Reference Range Interpretation Comments Culture: Respiratory Moderate Yeast Normal w/Gram Stain (test code Respiratory Lyndsay = Culture: Respiratory Isolated w/Gram Stain) [facility] Zwhpht4801-24-88 17:16:00 Test Item Value Reference Range Interpretation Comments Gram Stain Report Gram Stain Performed By: (test code = [facility] [place] Stain Report) [facility]: Respiratory w/Gram [id number] 17:16:00 Test Item Value Reference Range Interpretation Comments Culture: Respiratory Moderate Yeast Normal w/Gram Stain (test code Respiratory Lyndsay = Culture: Respiratory Isolated w/Gram Stain) [facility] Niqsfr1227-46-17 17:16:00 Test Item Value Reference Range Interpretation Comments Gram Stain Report Gram Stain Performed By: (test code = [facility] [place] Stain Report) [facility] Respiratory w/Gram [id number] 17:16:00 Test Item Value Reference Range Interpretation Comments Culture: Respiratory Moderate Yeast Normal w/Gram Stain (test code Respiratory Lyndsay = Culture: Respiratory Isolated w/Gram Stain) [facility] Zzsddy6897-48-26 17:16:00 Test Item Value Reference Range Interpretation Comments Gram Stain Report Gram Stain Performed By: (test code = [facility] Stain Report) [facility]: Respiratory w/Gram [id number] 17:16:00 Test Item Value Reference Range Interpretation Comments Culture: Respiratory Moderate Yeast Normal w/Gram Stain (test code Respiratory Lyndsay = Culture: Respiratory Isolated w/Gram Stain) [facility] [id number] 17:16:00 Test Item Value Reference Range Interpretation Comments Gram Stain Report Gram Stain Performed By: (test code = [facility] Stain Report) [facility]ann[facility]: Respiratory w/Gram [id number] 17:16:00 Test Item Value Reference Range Interpretation Comments Culture: Respiratory Moderate Yeast Normal w/Gram Stain (test code Respiratory Lyn[place]ay = Culture: Respiratory Isolated w/Gram Stain) [facility] Zwmcyq2254-30-99 17:16:00 Test Item Value Reference Range Interpretation Comments Gram Stain Report Gram Stain Performed By: (test code = [facility] [place] Stain Report) [facility]: Respiratory w/Gram [id number] 17:16:00 Test Item Value Reference Range Interpretation Comments Culture: Respiratory Moderate Yeast Normal w/Gram Stain (test code Respiratory Lyndsay = Culture: Respiratory Isolated w/Gram Stain) [facility]annG[facility] Gzmuls2438-04-71 17:16:00 Test Item Value Reference Range Interpretation Comments Gram Stain Report Gram Stain Performed By: (test code = [facility] Stain Report) [facility]ann[facility]: Respiratory w/Gram [id number] 17:16:00 Test Item Value Reference Range Interpretation Comments Culture: Respiratory Moderate Yeast Normal w/Gram Stain (test code Respiratory Lyndsay = Culture: Respiratory Isolated w/Gram Stain) [facility]annG[facility] Stain [id number] 17:16:00 Test Item Value Reference Range Interpretation Comments Gram Stain Report Gram Stain Performed By: (test code = [facility] Stain Report) [facility]ann[facility]: Respiratory w/Gram [id number] 17:16:00 Test Item Value Reference Range Interpretation Comments Culture: Respiratory Moderate Yeast Normal w/Gram Stain (test code Respiratory Lyndsay = Culture: Respiratory Isolated w/Gram Stain) [facility]annG[facility]ain [id number] 17:16:00 Test Item Value Reference Range Interpretation Comments Gram Stain Report Gram Stain Performed By: (test code = [facility] [place] Stain Report) [facility]ann[facility]: Respiratory w/Gram [id number] 17:16:00 Test Item Value Reference Range Interpretation Comments Culture: Respiratory Moderate Yeast Normal w/Gram Stain (test code Respiratory Lyndsay = Culture: Respiratory Isolated w/Gram Stain) [facility] HospitalannCHEM [id number] 09:04:00 Test Item Value Reference Range Interpretation Comments Glucose Lvl (test code = Glucose Lvl) 59 70-99 [facility] [place] [address]-07-18 09:04:00 Test Item Value Reference Range Interpretation Comments BUN (test code = BUN) 41 7-22 [place] [address]-07-18 09:04:00 Test Item Value Reference Range Interpretation Comments Creatinine Lvl (test code = Creatinine 7.00 0.50-1.40 Lvl) [place] [address]-07-18 09:04:00 Test Item Value Reference Range Interpretation Comments Sodium Lvl (test code = Sodium Lvl) 134 135-145 [place] [address]-07-18 09:04:00 Test Item Value Reference Range Interpretation Comments Potassium Lvl (test code = Potassium 4.0 3.5-5.1 Lvl) [place] [address]-07-18 09:04:00 Test Item Value Reference Range Interpretation Comments Chloride Lvl (test code = Chloride Lvl) 102 95-109 [place] [address]-07-18 09:04:00 Test Item Value Reference Range Interpretation Comments CO2 (test code = CO2) 25 24-32 [place] [address]-07-18 09:04:00 Test Item Value Reference Range Interpretation Comments Calcium Lvl (test code = Calcium Lvl) 9.1 8.5-10.5 [place] [address]-07-18 09:04:00 Test Item Value Reference Range Interpretation Comments Total Protein (test code = Total 6.2 6.4-8.4 Protein) [place] [address]-07-18 09:04:00 Test Item Value Reference Range Interpretation Comments Albumin Lvl (test code = Albumin Lvl) 2.8 3.5-5.0 [place] [address]-07-18 09:04:00 Test Item Value Reference Range Interpretation Comments ALT (test code = ALT) 78 See_Comment [Auto mated message] The system which ge nerated this result transmit swathi reference range : <=65. The reference range was not used to interpr et this result as deny l/abnormal. [place] [address]-07-18 09:04:00 Test Item Value Reference Range Interpretation Comments AST (test code = AST) 117 See_Comment [Auto mated message] The system which ge nerated this result transmit swathi reference range : <=37. The reference range was not used to interpr et this result as deny l/abnormal. [facility]2022-07-18 09:04:00 Test Item Value Reference Range Interpretation Comments Alk Phos (test code = Alk Phos) 251 39-136 [place] 074992-07-18 09:04:00 Test Item Value Reference Range Interpretation Comments Bili Total (test code = Bili Total) 0.9 0.2-1.3 [place] 074992-07-18 09:04:00 Test Item Value Reference Range Interpretation Comments AGAP (test code = AGAP) 11.0 10.0-20.0 [place] 074992-07-18 09:04:00 Test Item Value Reference Range Interpretation Comments B/C Ratio (test code = B/C Ratio) 6 1 6-25 [place] 074992-07-18 09:04:00 Test Item Value Reference Range Interpretation Comments Globulin (test code = Globulin) 3.4 2.7-4.2 [facility]2022-07-18 09:04:00 Test Item Value Reference Range Interpretation Comments A/G Ratio (test code = A/G Ratio) 0.8 1 0.7-1.6 [facility]2022-07-18 09:04:00 Test Item Value Reference Range Interpretation Comments eGFR (test code = eGFR) 8 [facility] HospitalOevmpauHKYIOHFKVT8889-70-62 09:04:00 Test Item Value Reference Range Interpretation Comments D-Dimer (test code = D-Dimer) 3.03 [place] 152042-07-18 09:04:00 Test Item Value Reference Range Interpretation Comments WBC (test code = WBC) 3.6 3.7-10.4 [place] 152042-07-18 09:04:00 Test Item Value Reference Range Interpretation Comments RBC (test code = RBC) 2.07 4.70-6.10 [place] 152042-07-18 09:04:00 Test Item Value Reference Range Interpretation Comments Hgb (test code = Hgb) 7.5 14.0-18.0 [place] 152042-07-18 09:04:00 Test Item Value Reference Range Interpretation Comments Hct (test code = Hct) 22.0 42.0-54.0 [place] 152042-07-18 09:04:00 Test Item Value Reference Range Interpretation Comments MCV (test code = MCV) 106.3 80.0-94.0 [place] [address]-07-18 09:04:00 Test Item Value Reference Range Interpretation Comments MCH (test code = MCH) 36.1 pg 27.0-31.0 [place] 152042-07-18 09:04:00 Test Item Value Reference Range Interpretation Comments MCHC (test code = MCHC) 33.9 32.0-36.0 [place] [address]-07-18 09:04:00 Test Item Value Reference Range Interpretation Comments RDW (test code = RDW) 23.9 11.5-14.5 [place] [address]-07-18 09:04:00 Test Item Value Reference Range Interpretation Comments Platelet (test code = Platelet) 133 133-450 [place] 152042-07-18 09:04:00 Test Item Value Reference Range Interpretation Comments MPV (test code = MPV) 8.1 7.4-10.4 [place] [address]-07-18 09:04:00 Test Item Value Reference Range Interpretation Comments Segs (test code = Segs) 60.8 45.0-75.0 [place] [address]-07-18 09:04:00 Test Item Value Reference Range Interpretation Comments Lymphocytes (test code = Lymphocytes) 22.3 20.0-40.0 [place] [address]-07-18 09:04:00 Test Item Value Reference Range Interpretation Comments Monocytes (test code = Monocytes) 13.9 2.0-12.0 [place] [address]-07-18 09:04:00 Test Item Value Reference Range Interpretation Comments Eosinophils (test code = 2.6 See_Comment [A utomated message] The Eosinophils) system which ge nerated this result tra nsmitted reference range : <=4.0. The reference r samantha was not used to int erpret this result as normal/abnormal . [place] [address]-07-18 09:04:00 Test Item Value Reference Range Interpretation Comments Basophils (test code = 0.4 See_Comment [Aut omated message] The Basophils) system which ge nerated this result tra nsmitted reference range : <=1.0. The reference r samantha was not used to int erpret this result as normal/abnormal . [facility] HospitalBprujiyZDLPMGLYAE7574-18-68 09:04:00 Test Item Value Reference Range Interpretation Comments Neutrophils # (test code = Neutrophils 2.2 1.5-8.1 #) [facility] HospitalBqrllixPVGNFQZROS9122-89-79 09:04:00 Test Item Value Reference Range Interpretation Comments Lymphocytes # (test code = Lymphocytes 0.8 1.0-5.5 #) [facility] HospitalRtokueyGDSHVOBTCH6662-03-76 09:04:00 Test Item Value Reference Range Interpretation Comments Monocytes # (test code 0.5 See_Comment [Aut omated message] The = Monocytes #) system which generated this result tra nsmitted reference range : <=0.8. The reference r samantha was not used to int erpret this result as normal/abnormal . [facility] HospitalKpezdvxKQXIXARFAQ2955-58-75 09:04:00 Test Item Value Reference Range Interpretation Comments Eosinophils # (test code 0.1 See_Comment [A utomated message] The = Eosinophils #) system whic h generated this result tra nsmitted reference range : <=0.5. The reference r samantha was not used to int erpret this result as normal/abnormal . [facility] HospitalNhbsaeyCNKGTEXEUL0876-35-22 09:04:00 Test Item Value Reference Range Interpretation Comments Macrocyte (test code = 1+ *ABN*(12/15/21 Macrocyte) 4:04 AM) [facility] HospitalPayurwmEKHBFWQGQY8225-44-04 09:04:00 Test Item Value Reference Range Interpretation Comments C-REACTIVE PROTEIN (test code = 25.1 C-REACTIVE PROTEIN) [facility] HospitalCocqeerFNGVSWPIBE2189-52-21 09:04:00 Test Item Value Reference Range Interpretation Comments Vanco Lvl (test code = Vanco Lvl) 15.2 [facility]Equals[facility] [id number] 09:04:00 Test Item Value Reference Range Interpretation Comments Glucose Lvl (test code = Glucose Lvl) 59 70-99 [facility]2022-07-18 09:04:00 Test Item Value Reference Range Interpretation Comments BUN (test code = BUN) 41 7-22 [facility] [id number] 09:04:00 Test Item Value Reference Range Interpretation Comments Creatinine Lvl (test code = Creatinine 7.00 0.50-1.40 Lvl) [place] 074992-07-18 09:04:00 Test Item Value Reference Range Interpretation Comments Sodium Lvl (test code = Sodium Lvl) 134 135-145 [place] 074992-07-18 09:04:00 Test Item Value Reference Range Interpretation Comments Potassium Lvl (test code = Potassium 4.0 3.5-5.1 Lvl) [place] 074992-07-18 09:04:00 Test Item Value Reference Range Interpretation Comments Chloride Lvl (test code = Chloride Lvl) 102 95-109 [place] [address]-07-18 09:04:00 Test Item Value Reference Range Interpretation Comments CO2 (test code = CO2) 25 24-32 [place] 074992-07-18 09:04:00 Test Item Value Reference Range Interpretation Comments Calcium Lvl (test code = Calcium Lvl) 9.1 8.5-10.5 [place] 074992-07-18 09:04:00 Test Item Value Reference Range Interpretation Comments Total Protein (test code = Total 6.2 6.4-8.4 Protein) [place] 074992-07-18 09:04:00 Test Item Value Reference Range Interpretation Comments Albumin Lvl (test code = Albumin Lvl) 2.8 3.5-5.0 [place] 074992-07-18 09:04:00 Test Item Value Reference Range Interpretation Comments ALT (test code = ALT) 78 See_Comment [Auto mated message] The system which ge nerated this result transmit swathi reference range : <=65. The reference range was not used to interpr et this result as deny l/abnormal. [place] 074992-07-18 09:04:00 Test Item Value Reference Range Interpretation Comments AST (test code = AST) 117 See_Comment [Auto mated message] The system which ge nerated this result transmit swathi reference range : <=37. The reference range was not used to interpr et this result as deny l/abnormal. [place] [address]-07-18 09:04:00 Test Item Value Reference Range Interpretation Comments Alk Phos (test code = Alk Phos) 251 39-136 [place] 074992-07-18 09:04:00 Test Item Value Reference Range Interpretation Comments Bili Total (test code = Bili Total) 0.9 0.2-1.3 [place] 074992-07-18 09:04:00 Test Item Value Reference Range Interpretation Comments AGAP (test code = AGAP) 11.0 10.0-20.0 [place] 074992-07-18 09:04:00 Test Item Value Reference Range Interpretation Comments B/C Ratio (test code = B/C Ratio) 6 1 6-25 [place] 074992-07-18 09:04:00 Test Item Value Reference Range Interpretation Comments Globulin (test code = Globulin) 3.4 2.7-4.2 [place] 074992-07-18 09:04:00 Test Item Value Reference Range Interpretation Comments A/G Ratio (test code = A/G Ratio) 0.8 1 0.7-1.6 [place] 074992-07-18 09:04:00 Test Item Value Reference Range Interpretation Comments eGFR (test code = eGFR) 8 [facility]tm[facility]rzQPZWMNKVSF6789-69-80 09:04:00 Test Item Value Reference Range Interpretation Comments D-Dimer (test code = D-Dimer) 3.03 [place] 152042-07-18 09:04:00 Test Item Value Reference Range Interpretation Comments WBC (test code = WBC) 3.6 3.7-10.4 [place] 152042-07-18 09:04:00 Test Item Value Reference Range Interpretation Comments RBC (test code = RBC) 2.07 4.70-6.10 [place] 152042-07-18 09:04:00 Test Item Value Reference Range Interpretation Comments Hgb (test code = Hgb) 7.5 14.0-18.0 [place] 152042-07-18 09:04:00 Test Item Value Reference Range Interpretation Comments Hct (test code = Hct) 22.0 42.0-54.0 [place] 152042-07-18 09:04:00 Test Item Value Reference Range Interpretation Comments MCV (test code = MCV) 106.3 80.0-94.0 [place] 152042-07-18 09:04:00 Test Item Value Reference Range Interpretation Comments MCH (test code = MCH) 36.1 pg 27.0-31.0 [place] 152042-07-18 09:04:00 Test Item Value Reference Range Interpretation Comments MCHC (test code = MCHC) 33.9 32.0-36.0 [place] 152042-07-18 09:04:00 Test Item Value Reference Range Interpretation Comments RDW (test code = RDW) 23.9 11.5-14.5 [place] 152042-07-18 09:04:00 Test Item Value Reference Range Interpretation Comments Platelet (test code = Platelet) 133 133-450 [place] 152042-07-18 09:04:00 Test Item Value Reference Range Interpretation Comments MPV (test code = MPV) 8.1 7.4-10.4 [place] 152042-07-18 09:04:00 Test Item Value Reference Range Interpretation Comments Segs (test code = Segs) 60.8 45.0-75.0 [place] 152042-07-18 09:04:00 Test Item Value Reference Range Interpretation Comments Lymphocytes (test code = Lymphocytes) 22.3 20.0-40.0 [place] 152042-07-18 09:04:00 Test Item Value Reference Range Interpretation Comments Monocytes (test code = Monocytes) 13.9 2.0-12.0 [place] 152042-07-18 09:04:00 Test Item Value Reference Range Interpretation Comments Eosinophils (test code = 2.6 See_Comment [A utomated message] The Eosinophils) system which ge nerated this result tra nsmitted reference range : <=4.0. The reference r samantha was not used to int erpret this result as normal/abnormal . [place] 152042-07-18 09:04:00 Test Item Value Reference Range Interpretation Comments Basophils (test code = 0.4 See_Comment [Aut omated message] The Basophils) system which ge nerated this result tra nsmitted reference range : <=1.0. The reference r samantha was not used to int erpret this result as normal/abnormal . [place] 152042-07-18 09:04:00 Test Item Value Reference Range Interpretation Comments Neutrophils # (test code = Neutrophils 2.2 1.5-8.1 #) [place] 152042-07-18 09:04:00 Test Item Value Reference Range Interpretation Comments Lymphocytes # (test code = Lymphocytes 0.8 1.0-5.5 #) [facility] HospitalInymnirPOKBTTWGKQ1437-87-63 09:04:00 Test Item Value Reference Range Interpretation Comments Monocytes # (test code 0.5 See_Comment [Aut omated message] The = Monocytes #) system which generated this result tra nsmitted reference range : <=0.8. The reference r samantha was not used to int erpret this result as normal/abnormal . [facility] HospitalKvdjhlbVXBROVKWQF6030-92-01 09:04:00 Test Item Value Reference Range Interpretation Comments Eosinophils # (test code 0.1 See_Comment [A utomated message] The = Eosinophils #) system whic h generated this result tra nsmitted reference range : <=0.5. The reference r samantha was not used to int erpret this result as normal/abnormal . [facility] HospitalJykchgoXFTVLFRKXH3915-22-19 09:04:00 Test Item Value Reference Range Interpretation Comments Macrocyte (test code = 1+ *ABN*(12/15/21 Macrocyte) 4:04 AM) [facility] HospitalSjiskeaATOFQGPVVP2862-91-30 09:04:00 Test Item Value Reference Range Interpretation Comments C-REACTIVE PROTEIN (test code = 25.1 C-REACTIVE PROTEIN) [facility] HospitalQbwvtrbDVLEPHPYXN5873-47-92 09:04:00 Test Item Value Reference Range Interpretation Comments Vanco Lvl (test code = Vanco Lvl) 15.2 [facility]Equals[facility] [id number] 09:04:00 Test Item Value Reference Range Interpretation Comments Glucose Lvl (test code = Glucose Lvl) 59 70-99 [facility] [id number] 09:04:00 Test Item Value Reference Range Interpretation Comments BUN (test code = BUN) 41 7-22 [facility] [id number] 09:04:00 Test Item Value Reference Range Interpretation Comments Creatinine Lvl (test code = Creatinine 7.00 0.50-1.40 Lvl) [facility]2022-07-18 09:04:00 Test Item Value Reference Range Interpretation Comments Sodium Lvl (test code = Sodium Lvl) 134 135-145 [facility] [id number] 09:04:00 Test Item Value Reference Range Interpretation Comments Potassium Lvl (test code = Potassium 4.0 3.5-5.1 Lvl) [facility]Bu[facility] IncDEVIN [facility] [id number] 09:04:00 Test Item Value Reference Range Interpretation Comments Chloride Lvl (test code = Chloride Lvl) 102 95-109 [facility] HospitalBu[facility] IncMICHAEL [place] [id number] 09:04:00 Test Item Value Reference Range Interpretation Comments CO2 (test code = CO2) 25 24-32 [facility] HospitalBueno IncDEVIN VILLE [id number] 09:04:00 Test Item Value Reference Range Interpretation Comments Calcium Lvl (test code = Calcium Lvl) 9.1 8.5-10.5 [facility] [id number] 09:04:00 Test Item Value Reference Range Interpretation Comments Total Protein (test code = Total 6.2 6.4-8.4 Protein) [place] [address]-07-18 09:04:00 Test Item Value Reference Range Interpretation Comments Albumin Lvl (test code = Albumin Lvl) 2.8 3.5-5.0 [facility] [id number] 09:04:00 Test Item Value Reference Range Interpretation Comments ALT (test code = ALT) 78 See_Comment [Auto mated message] The system which ge nerated this result transmit swathi reference range : <=65. The reference range was not used to interpr et this result as deny l/abnormal. [facility] [id number] 09:04:00 Test Item Value Reference Range Interpretation Comments AST (test code = AST) 117 See_Comment [Auto mated message] The system which ge nerated this result transmit swathi reference range : <=37. The reference range was not used to interpr et this result as deny l/abnormal. [facility] [id number] 09:04:00 Test Item Value Reference Range Interpretation Comments Alk Phos (test code = Alk Phos) 251 39-136 [facility] [id number] 09:04:00 Test Item Value Reference Range Interpretation Comments Bili Total (test code = Bili Total) 0.9 0.2-1.3 [facility] [id number] 09:04:00 Test Item Value Reference Range Interpretation Comments AGAP (test code = AGAP) 11.0 10.0-20.0 [place] 074992-07-18 09:04:00 Test Item Value Reference Range Interpretation Comments B/C Ratio (test code = B/C Ratio) 6 1 6-25 [place] 074992-07-18 09:04:00 Test Item Value Reference Range Interpretation Comments Globulin (test code = Globulin) 3.4 2.7-4.2 [place] 074992-07-18 09:04:00 Test Item Value Reference Range Interpretation Comments Glucose Lvl (test code = Glucose Lvl) 59 70-99 [place] 074992-07-18 09:04:00 Test Item Value Reference Range Interpretation Comments BUN (test code = BUN) 41 7-22 [place] 074992-07-18 09:04:00 Test Item Value Reference Range Interpretation Comments Creatinine Lvl (test code = Creatinine 7.00 0.50-1.40 Lvl) [place] 074992-07-18 09:04:00 Test Item Value Reference Range Interpretation Comments Sodium Lvl (test code = Sodium Lvl) 134 135-145 [place] 074992-07-18 09:04:00 Test Item Value Reference Range Interpretation Comments Potassium Lvl (test code = Potassium 4.0 3.5-5.1 Lvl) [place] 074992-07-18 09:04:00 Test Item Value Reference Range Interpretation Comments Chloride Lvl (test code = Chloride Lvl) 102 95-109 [place] 074992-07-18 09:04:00 Test Item Value Reference Range Interpretation Comments CO2 (test code = CO2) 25 24-32 [place] 074992-07-18 09:04:00 Test Item Value Reference Range Interpretation Comments Calcium Lvl (test code = Calcium Lvl) 9.1 8.5-10.5 [place] 074992-07-18 09:04:00 Test Item Value Reference Range Interpretation Comments Total Protein (test code = Total 6.2 6.4-8.4 Protein) [place] 074992-07-18 09:04:00 Test Item Value Reference Range Interpretation Comments A/G Ratio (test code = A/G Ratio) 0.8 1 0.7-1.6 [place] 074992-07-18 09:04:00 Test Item Value Reference Range Interpretation Comments Albumin Lvl (test code = Albumin Lvl) 2.8 3.5-5.0 [place] 074992-07-18 09:04:00 Test Item Value Reference Range Interpretation Comments ALT (test code = ALT) 78 See_Comment [Auto mated message] The system which ge nerated this result transmit swathi reference range : <=65. The reference range was not used to interpr et this result as deny l/abnormal. [place] 074992-07-18 09:04:00 Test Item Value Reference Range Interpretation Comments AST (test code = AST) 117 See_Comment [Auto mated message] The system which ge nerated this result transmit swathi reference range : <=37. The reference range was not used to interpr et this result as deny l/abnormal. [place] 074992-07-18 09:04:00 Test Item Value Reference Range Interpretation Comments Alk Phos (test code = Alk Phos) 251 39-136 [place] 074992-07-18 09:04:00 Test Item Value Reference Range Interpretation Comments Bili Total (test code = Bili Total) 0.9 0.2-1.3 [place] [address]-07-18 09:04:00 Test Item Value Reference Range Interpretation Comments AGAP (test code = AGAP) 11.0 10.0-20.0 [place] 074992-07-18 09:04:00 Test Item Value Reference Range Interpretation Comments B/C Ratio (test code = B/C Ratio) 6 1 6-25 [place] 074992-07-18 09:04:00 Test Item Value Reference Range Interpretation Comments Globulin (test code = Globulin) 3.4 2.7-4.2 [place] [address]-07-18 09:04:00 Test Item Value Reference Range Interpretation Comments A/G Ratio (test code = A/G Ratio) 0.8 1 0.7-1.6 [place] 074992-07-18 09:04:00 Test Item Value Reference Range Interpretation Comments eGFR (test code = eGFR) 8 [place] 074992-07-18 09:04:00 Test Item Value Reference Range Interpretation Comments eGFR (test code = eGFR) 8 [place] 152042-07-18 09:04:00 Test Item Value Reference Range Interpretation Comments D-Dimer (test code = D-Dimer) 3.03 [facility] Hos[id number] 09:04:00 Test Item Value Reference Range Interpretation Comments WBC (test code = WBC) 3.6 3.7-10.4 [facility] HospitalHigbxmaLYHNVXTLGZ1879-96-11 09:04:00 Test Item Value Reference Range Interpretation Comments RBC (test code = RBC) 2.07 4.70-6.10 [facility] HospitalMkjaiszBPIKDUFOKS6035-95-60 09:04:00 Test Item Value Reference Range Interpretation Comments Hgb (test code = Hgb) 7.5 14.0-18.0 [place] 152042-07-18 09:04:00 Test Item Value Reference Range Interpretation Comments Hct (test code = Hct) 22.0 42.0-54.0 [place] 152042-07-18 09:04:00 Test Item Value Reference Range Interpretation Comments MCV (test code = MCV) 106.3 80.0-94.0 [facility] HospitalJravguiWSYVLZOKXV7538-24-33 09:04:00 Test Item Value Reference Range Interpretation Comments MCH (test code = MCH) 36.1 pg 27.0-31.0 [facility] HospitalKpyywpgUVXBOFOKMG3002-06-35 09:04:00 Test Item Value Reference Range Interpretation Comments MCHC (test code = MCHC) 33.9 32.0-36.0 [facility] HospitalLnzfptlBONRJXQWLO6173-14-96 09:04:00 Test Item Value Reference Range Interpretation Comments RDW (test code = RDW) 23.9 11.5-14.5 [place] 152042-07-18 09:04:00 Test Item Value Reference Range Interpretation Comments Platelet (test code = Platelet) 133 133-450 [facility] HospitalImqsjqaCZVXISSZZP6429-92-33 09:04:00 Test Item Value Reference Range Interpretation Comments D-Dimer (test code = D-Dimer) 3.03 [facility] HospitalEqpafkiFWHNAMNTZG2225-32-39 09:04:00 Test Item Value Reference Range Interpretation Comments MPV (test code = MPV) 8.1 7.4-10.4 [facility] HospitalStdbrgwJREWLKSIGG1437-30-28 09:04:00 Test Item Value Reference Range Interpretation Comments Segs (test code = Segs) 60.8 45.0-75.0 [facility] HospitalDhjadkoCSCLXEPZBG7396-17-69 09:04:00 Test Item Value Reference Range Interpretation Comments Lymphocytes (test code = Lymphocytes) 22.3 20.0-40.0 [place] 152042-07-18 09:04:00 Test Item Value Reference Range Interpretation Comments Monocytes (test code = Monocytes) 13.9 2.0-12.0 [place] 152042-07-18 09:04:00 Test Item Value Reference Range Interpretation Comments Eosinophils (test code = 2.6 See_Comment [A utomated message] The Eosinophils) system which ge nerated this result tra nsmitted reference range : <=4.0. The reference r samantha was not used to int erpret this result as normal/abnormal . [place] 152042-07-18 09:04:00 Test Item Value Reference Range Interpretation Comments Basophils (test code = 0.4 See_Comment [Aut omated message] The Basophils) system which ge nerated this result tra nsmitted reference range : <=1.0. The reference r samantha was not used to int erpret this result as normal/abnormal . [facility] HospitalLhjblulJZRABVAWBU3876-96-56 09:04:00 Test Item Value Reference Range Interpretation Comments Neutrophils # (test code = Neutrophils 2.2 1.5-8.1 #) [place] 152042-07-18 09:04:00 Test Item Value Reference Range Interpretation Comments Lymphocytes # (test code = Lymphocytes 0.8 1.0-5.5 #) [place] 152042-07-18 09:04:00 Test Item Value Reference Range Interpretation Comments Monocytes # (test code 0.5 See_Comment [Aut omated message] The = Monocytes #) system which generated this result tra nsmitted reference range : <=0.8. The reference r samantha was not used to int erpret this result as normal/abnormal . [place] 152042-07-18 09:04:00 Test Item Value Reference Range Interpretation Comments Eosinophils # (test code 0.1 See_Comment [A utomated message] The = Eosinophils #) system whic h generated this result tra nsmitted reference range : <=0.5. The reference r samantha was not used to int erpret this result as normal/abnormal . [facility] HospitalYuxjjnqHJBTAIJTXC0152-49-99 09:04:00 Test Item Value Reference Range Interpretation Comments WBC (test code = WBC) 3.6 3.7-10.4 [facility] HospitalIskryzhRHEMGMLRDV3830-83-88 09:04:00 Test Item Value Reference Range Interpretation Comments Macrocyte (test code = 1+ *ABN*(12/15/21 Macrocyte) 4:04 AM) [facility] HospitalXxnhwjdGHFYFDIFMN3985-77-33 09:04:00 Test Item Value Reference Range Interpretation Comments C-REACTIVE PROTEIN (test code = 25.1 C-REACTIVE PROTEIN) [facility] HospitalElzqzxiPTBMFEVCZB7285-44-11 09:04:00 Test Item Value Reference Range Interpretation Comments Vanco Lvl (test code = Vanco Lvl) 15.2 [facility] HospitalGgmshpyQIGZQRFBID0024-19-73 09:04:00 Test Item Value Reference Range Interpretation Comments RBC (test code = RBC) 2.07 4.70-6.10 [facility] HospitalXrtndrsMGGVEPJNBF9837-52-48 09:04:00 Test Item Value Reference Range Interpretation Comments Hgb (test code = Hgb) 7.5 14.0-18.0 [facility] HospitalDdecogrSEHBSREDTX7401-42-53 09:04:00 Test Item Value Reference Range Interpretation Comments Hct (test code = Hct) 22.0 42.0-54.0 [facility] HospitalWlozbdcUUXVAMUPZF4744-43-15 09:04:00 Test Item Value Reference Range Interpretation Comments MCV (test code = MCV) 106.3 80.0-94.0 [facility] HospitalTaszltiCLRMKWPYAI1311-35-99 09:04:00 Test Item Value Reference Range Interpretation Comments MCH (test code = MCH) 36.1 pg 27.0-31.0 [facility] HospitalRxuffrvUBYDGJUTSQ3795-04-22 09:04:00 Test Item Value Reference Range Interpretation Comments MCHC (test code = MCHC) 33.9 32.0-36.0 [facility] HospitalNtbgwinTCEGETZNTG0108-71-63 09:04:00 Test Item Value Reference Range Interpretation Comments RDW (test code = RDW) 23.9 11.5-14.5 [facility] HospitalUckbohaBJRVBOXRUV6361-94-12 09:04:00 Test Item Value Reference Range Interpretation Comments Platelet (test code = Platelet) 133 133-450 [place] 152042-07-18 09:04:00 Test Item Value Reference Range Interpretation Comments MPV (test code = MPV) 8.1 7.4-10.4 [place] [address]-07-18 09:04:00 Test Item Value Reference Range Interpretation Comments Segs (test code = Segs) 60.8 45.0-75.0 [place] [address]-07-18 09:04:00 Test Item Value Reference Range Interpretation Comments Lymphocytes (test code = Lymphocytes) 22.3 20.0-40.0 [place] [address]-07-18 09:04:00 Test Item Value Reference Range Interpretation Comments Monocytes (test code = Monocytes) 13.9 2.0-12.0 [place] [address]-07-18 09:04:00 Test Item Value Reference Range Interpretation Comments Eosinophils (test code = 2.6 See_Comment [A utomated message] The Eosinophils) system which ge nerated this result tra nsmitted reference range : <=4.0. The reference r samantha was not used to int erpret this result as normal/abnormal . [place] 152042-07-18 09:04:00 Test Item Value Reference Range Interpretation Comments Basophils (test code = 0.4 See_Comment [Aut omated message] The Basophils) system which ge nerated this result tra nsmitted reference range : <=1.0. The reference r samantha was not used to int erpret this result as normal/abnormal . [place] 152042-07-18 09:04:00 Test Item Value Reference Range Interpretation Comments Neutrophils # (test code = Neutrophils 2.2 1.5-8.1 #) [place] [address]-07-18 09:04:00 Test Item Value Reference Range Interpretation Comments Lymphocytes # (test code = Lymphocytes 0.8 1.0-5.5 #) [place] [address]-07-18 09:04:00 Test Item Value Reference Range Interpretation Comments Monocytes # (test code 0.5 See_Comment [Aut omated message] The = Monocytes #) system which generated this result tra nsmitted reference range : <=0.8. The reference r samantha was not used to int erpret this result as normal/abnormal . [place] [address]-07-18 09:04:00 Test Item Value Reference Range Interpretation Comments Eosinophils # (test code 0.1 See_Comment [A utomated message] The = Eosinophils #) system whic h generated this result tra nsmitted reference range : <=0.5. The reference r samantha was not used to int erpret this result as normal/abnormal . [facility] HospitalGsdixvwHBZEJREDYM6931-57-64 09:04:00 Test Item Value Reference Range Interpretation Comments Macrocyte (test code = 1+ *ABN*(12/15/21 Macrocyte) 4:04 AM) [facility] HospitalCidljbwUVWVUVXKHX6779-73-98 09:04:00 Test Item Value Reference Range Interpretation Comments C-REACTIVE PROTEIN (test code = 25.1 C-REACTIVE PROTEIN) [facility] HospitalZuoblhdZBUFRGCBOH4529-95-79 09:04:00 Test Item Value Reference Range Interpretation Comments Vanco Lvl (test code = Vanco Lvl) 15.2 [facility]2022-07-18 09:04:00 Test Item Value Reference Range Interpretation Comments Glucose Lvl (test code = Glucose Lvl) 59 70-99 [place] 074992-07-18 09:04:00 Test Item Value Reference Range Interpretation Comments BUN (test code = BUN) 41 7-22 [place] 074992-07-18 09:04:00 Test Item Value Reference Range Interpretation Comments Creatinine Lvl (test code = Creatinine 7.00 0.50-1.40 Lvl) [facility]2022-07-18 09:04:00 Test Item Value Reference Range Interpretation Comments Sodium Lvl (test code = Sodium Lvl) 134 135-145 [place] 074992-07-18 09:04:00 Test Item Value Reference Range Interpretation Comments Potassium Lvl (test code = Potassium 4.0 3.5-5.1 Lvl) [place] 074992-07-18 09:04:00 Test Item Value Reference Range Interpretation Comments Chloride Lvl (test code = Chloride Lvl) 102 95-109 [place] 074992-07-18 09:04:00 Test Item Value Reference Range Interpretation Comments CO2 (test code = CO2) 25 24-32 [place] 074992-07-18 09:04:00 Test Item Value Reference Range Interpretation Comments Calcium Lvl (test code = Calcium Lvl) 9.1 8.5-10.5 [facility] [id number] 09:04:00 Test Item Value Reference Range Interpretation Comments Total Protein (test code = Total 6.2 6.4-8.4 Protein) [facility]Equals[facility] [id number] 09:04:00 Test Item Value Reference Range Interpretation Comments Albumin Lvl (test code = Albumin Lvl) 2.8 3.5-5.0 [facility] [id number] 09:04:00 Test Item Value Reference Range Interpretation Comments ALT (test code = ALT) 78 See_Comment [Auto mated message] The system which ge nerated this result transmit swathi reference range : <=65. The reference range was not used to interpr et this result as deny l/abnormal. [facility] CQNLG2495-81-02 09:04:00 Test Item Value Reference Range Interpretation Comments AST (test code = AST) 117 See_Comment [Auto mated message] The system which ge nerated this result transmit swathi reference range : <=37. The reference range was not used to interpr et this result as deny l/abnormal. [facility] [employer] EYNMJ8510-24-68 09:04:00 Test Item Value Reference Range Interpretation Comments Alk Phos (test code = Alk Phos) 251 39-136 [facility] [employer] [id number] 09:04:00 Test Item Value Reference Range Interpretation Comments Bili Total (test code = Bili Total) 0.9 0.2-1.3 [facility] [employer] [id number] 09:04:00 Test Item Value Reference Range Interpretation Comments AGAP (test code = AGAP) 11.0 10.0-20.0 [facility] [id number] 09:04:00 Test Item Value Reference Range Interpretation Comments B/C Ratio (test code = B/C Ratio) 6 1 6-25 [facility] [id number] 09:04:00 Test Item Value Reference Range Interpretation Comments Globulin (test code = Globulin) 3.4 2.7-4.2 [facility] [employer] [id number] 09:04:00 Test Item Value Reference Range Interpretation Comments A/G Ratio (test code = A/G Ratio) 0.8 1 0.7-1.6 [facility]2022-07-18 09:04:00 Test Item Value Reference Range Interpretation Comments eGFR (test code = eGFR) 8 [facility] HospitalBhopmutOAKDOCAFQW0418-60-88 09:04:00 Test Item Value Reference Range Interpretation Comments D-Dimer (test code = D-Dimer) 3.03 [place] 152042-07-18 09:04:00 Test Item Value Reference Range Interpretation Comments WBC (test code = WBC) 3.6 3.7-10.4 [place] 152042-07-18 09:04:00 Test Item Value Reference Range Interpretation Comments RBC (test code = RBC) 2.07 4.70-6.10 [place] 152042-07-18 09:04:00 Test Item Value Reference Range Interpretation Comments Hgb (test code = Hgb) 7.5 14.0-18.0 [place] 152042-07-18 09:04:00 Test Item Value Reference Range Interpretation Comments Hct (test code = Hct) 22.0 42.0-54.0 [place] 152042-07-18 09:04:00 Test Item Value Reference Range Interpretation Comments MCV (test code = MCV) 106.3 80.0-94.0 [place] 152042-07-18 09:04:00 Test Item Value Reference Range Interpretation Comments MCH (test code = MCH) 36.1 pg 27.0-31.0 [facility]YRZ[facility]JAAMIH6845-42-16 09:04:00 Test Item Value Reference Range Interpretation Comments MCHC (test code = MCHC) 33.9 32.0-36.0 [place] 152042-07-18 09:04:00 Test Item Value Reference Range Interpretation Comments RDW (test code = RDW) 23.9 11.5-14.5 [place] 152042-07-18 09:04:00 Test Item Value Reference Range Interpretation Comments Platelet (test code = Platelet) 133 133-450 [facility]QgumwpuUXTMUXDWJH6984-03-87 09:04:00 Test Item Value Reference Range Interpretation Comments MPV (test code = MPV) 8.1 7.4-10.4 [place] 152042-07-18 09:04:00 Test Item Value Reference Range Interpretation Comments Segs (test code = Segs) 60.8 45.0-75.0 [place] 152042-07-18 09:04:00 Test Item Value Reference Range Interpretation Comments Lymphocytes (test code = Lymphocytes) 22.3 20.0-40.0 [place] 152042-07-18 09:04:00 Test Item Value Reference Range Interpretation Comments Monocytes (test code = Monocytes) 13.9 2.0-12.0 [place] 152042-07-18 09:04:00 Test Item Value Reference Range Interpretation Comments Eosinophils (test code = 2.6 See_Comment [A utomated message] The Eosinophils) system which ge nerated this result tra nsmitted reference range : <=4.0. The reference r samantah was not used to int erpret this result as normal/abnormal . [place] [address]-07-18 09:04:00 Test Item Value Reference Range Interpretation Comments Basophils (test code = 0.4 See_Comment [Aut omated message] The Basophils) system which ge nerated this result tra nsmitted reference range : <=1.0. The reference r samantha was not used to int erpret this result as normal/abnormal . [place] 152042-07-18 09:04:00 Test Item Value Reference Range Interpretation Comments Neutrophils # (test code = Neutrophils 2.2 1.5-8.1 #) [place] 152042-07-18 09:04:00 Test Item Value Reference Range Interpretation Comments Lymphocytes # (test code = Lymphocytes 0.8 1.0-5.5 #) [place] 152042-07-18 09:04:00 Test Item Value Reference Range Interpretation Comments Monocytes # (test code 0.5 See_Comment [Aut omated message] The = Monocytes #) system which generated this result tra nsmitted reference range : <=0.8. The reference r samantha was not used to int erpret this result as normal/abnormal . [place] [address]-07-18 09:04:00 Test Item Value Reference Range Interpretation Comments Eosinophils # (test code 0.1 See_Comment [A utomated message] The = Eosinophils #) system ic h generated this result tra nsmitted reference range : <=0.5. The reference r samanhta was not used to int erpret this result as normal/abnormal . [facility] HospitalBbygsepZFALVEYSDC3715-32-72 09:04:00 Test Item Value Reference Range Interpretation Comments Macrocyte (test code = 1+ *ABN*(12/15/21 Macrocyte) 4:04 AM) [facility] HospitalRqbkpatPCCGPRGXPK3149-52-90 09:04:00 Test Item Value Reference Range Interpretation Comments C-REACTIVE PROTEIN (test code = 25.1 C-REACTIVE PROTEIN) [facility] HospitalExnextvIYJMCXTPOZ2776-81-82 09:04:00 Test Item Value Reference Range Interpretation Comments Vanco Lvl (test code = Vanco Lvl) 15.2 [facility] [id number] 09:04:00 Test Item Value Reference Range Interpretation Comments Glucose Lvl (test code = Glucose Lvl) 59 70-99 [facility]2022-07-18 09:04:00 Test Item Value Reference Range Interpretation Comments BUN (test code = BUN) 41 7-22 [facility]2022-07-18 09:04:00 Test Item Value Reference Range Interpretation Comments Creatinine Lvl (test code = Creatinine 7.00 0.50-1.40 Lvl) [facility]2022-07-18 09:04:00 Test Item Value Reference Range Interpretation Comments Sodium Lvl (test code = Sodium Lvl) 134 135-145 [facility]2022-07-18 09:04:00 Test Item Value Reference Range Interpretation Comments Potassium Lvl (test code = Potassium 4.0 3.5-5.1 Lvl) [facility]2022-07-18 09:04:00 Test Item Value Reference Range Interpretation Comments Chloride Lvl (test code = Chloride Lvl) 102 95-109 [facility]2022-07-18 09:04:00 Test Item Value Reference Range Interpretation Comments CO2 (test code = CO2) 25 24-32 [facility]2022-07-18 09:04:00 Test Item Value Reference Range Interpretation Comments Calcium Lvl (test code = Calcium Lvl) 9.1 8.5-10.5 [facility]2022-07-18 09:04:00 Test Item Value Reference Range Interpretation Comments Total Protein (test code = Total 6.2 6.4-8.4 Protein) [facility]2022-07-18 09:04:00 Test Item Value Reference Range Interpretation Comments Albumin Lvl (test code = Albumin Lvl) 2.8 3.5-5.0 [place] [address]-07-18 09:04:00 Test Item Value Reference Range Interpretation Comments ALT (test code = ALT) 78 See_Comment [Auto mated message] The system which ge nerated this result transmit swathi reference range : <=65. The reference range was not used to interpr et this result as deny l/abnormal. [place] 074992-07-18 09:04:00 Test Item Value Reference Range Interpretation Comments AST (test code = AST) 117 See_Comment [Auto mated message] The system which ge nerated this result transmit swathi reference range : <=37. The reference range was not used to interpr et this result as deny l/abnormal. [place] 074992-07-18 09:04:00 Test Item Value Reference Range Interpretation Comments Alk Phos (test code = Alk Phos) 251 39-136 [facility]Equals[facility] [id number] 09:04:00 Test Item Value Reference Range Interpretation Comments Bili Total (test code = Bili Total) 0.9 0.2-1.3 [place] [address]-07-18 09:04:00 Test Item Value Reference Range Interpretation Comments AGAP (test code = AGAP) 11.0 10.0-20.0 [place] 074992-07-18 09:04:00 Test Item Value Reference Range Interpretation Comments B/C Ratio (test code = B/C Ratio) 6 1 6-25 [place] 074992-07-18 09:04:00 Test Item Value Reference Range Interpretation Comments Globulin (test code = Globulin) 3.4 2.7-4.2 [place] [address]-07-18 09:04:00 Test Item Value Reference Range Interpretation Comments A/G Ratio (test code = A/G Ratio) 0.8 1 0.7-1.6 [place] [address]-07-18 09:04:00 Test Item Value Reference Range Interpretation Comments eGFR (test code = eGFR) 8 [place] 152042-07-18 09:04:00 Test Item Value Reference Range Interpretation Comments D-Dimer (test code = D-Dimer) 3.03 [facility] HospitalBrlzwhwBTETHZLBKL2468-41-57 09:04:00 Test Item Value Reference Range Interpretation Comments WBC (test code = WBC) 3.6 3.7-10.4 [facility] HospitalUhehnagTDWITNYVJT5755-70-31 09:04:00 Test Item Value Reference Range Interpretation Comments RBC (test code = RBC) 2.07 4.70-6.10 [facility] HospitalRpteqbhYKJXSSXHWL8913-96-86 09:04:00 Test Item Value Reference Range Interpretation Comments Hgb (test code = Hgb) 7.5 14.0-18.0 [facility] HospitalQbahgmyMXYUPOZZAW6093-43-05 09:04:00 Test Item Value Reference Range Interpretation Comments Hct (test code = Hct) 22.0 42.0-54.0 [facility] HospitalIxgoripXSVHQEUCPE7790-93-46 09:04:00 Test Item Value Reference Range Interpretation Comments MCV (test code = MCV) 106.3 80.0-94.0 [facility] HospitalNygmdgySQBGLJXQES7433-54-39 09:04:00 Test Item Value Reference Range Interpretation Comments MCH (test code = MCH) 36.1 pg 27.0-31.0 [facility] HospitalBkbrtubMCMRYSYDOK6322-32-07 09:04:00 Test Item Value Reference Range Interpretation Comments MCHC (test code = MCHC) 33.9 32.0-36.0 [facility] HospitalUtyzjwwYDTXDXDXDU6070-23-82 09:04:00 Test Item Value Reference Range Interpretation Comments RDW (test code = RDW) 23.9 11.5-14.5 [facility] HospitalMkehonyKFCCZDJYKB3130-61-18 09:04:00 Test Item Value Reference Range Interpretation Comments Platelet (test code = Platelet) 133 133-450 [facility] HospitalHcazvtdXKFNUXKLJK0857-52-56 09:04:00 Test Item Value Reference Range Interpretation Comments MPV (test code = MPV) 8.1 7.4-10.4 [facility] HospitalJevpfmhIXQSXPGHSQ1154-07-03 09:04:00 Test Item Value Reference Range Interpretation Comments Segs (test code = Segs) 60.8 45.0-75.0 [facility] HospitalZyjborbVZSLWLYXOR4462-85-19 09:04:00 Test Item Value Reference Range Interpretation Comments Lymphocytes (test code = Lymphocytes) 22.3 20.0-40.0 [facility] HospitalMkobnvtBFDLXESCRX2946-57-49 09:04:00 Test Item Value Reference Range Interpretation Comments Monocytes (test code = Monocytes) 13.9 2.0-12.0 [facility] HospitalWslaixfRJVRPRGPDL0162-95-81 09:04:00 Test Item Value Reference Range Interpretation Comments Eosinophils (test code = 2.6 See_Comment [A utomated message] The Eosinophils) system which ge nerated this result tra nsmitted reference range : <=4.0. The reference r samantha was not used to int erpret this result as normal/abnormal . [facility] HospitalKueqfylBZXOEIZWUO0425-67-02 09:04:00 Test Item Value Reference Range Interpretation Comments Basophils (test code = 0.4 See_Comment [Aut omated message] The Basophils) system which ge nerated this result tra nsmitted reference range : <=1.0. The reference r samantha was not used to int erpret this result as normal/abnormal . [facility] HospitalOqiwnrzRALYJIVQLA9004-21-90 09:04:00 Test Item Value Reference Range Interpretation Comments Neutrophils # (test code = Neutrophils 2.2 1.5-8.1 #) [facility] HospitalJsfdkldRVSBZPGSHX5200-79-75 09:04:00 Test Item Value Reference Range Interpretation Comments Lymphocytes # (test code = Lymphocytes 0.8 1.0-5.5 #) [facility] HospitalDpixsryRHXWIXVUSM7725-64-57 09:04:00 Test Item Value Reference Range Interpretation Comments Monocytes # (test code 0.5 See_Comment [Aut omated message] The = Monocytes #) system which generated this result tra nsmitted reference range : <=0.8. The reference r samantha was not used to int erpret this result as normal/abnormal . [facility] HospitalJdjixtxPRRXXVYZDQ7755-98-48 09:04:00 Test Item Value Reference Range Interpretation Comments Eosinophils # (test code 0.1 See_Comment [A utomated message] The = Eosinophils #) system whic h generated this result tra nsmitted reference range : <=0.5. The reference r samantha was not used to int erpret this result as normal/abnormal . [facility] HospitalGihlkxuGMCRKLZCSG8006-64-86 09:04:00 Test Item Value Reference Range Interpretation Comments Macrocyte (test code = 1+ *ABN*(12/15/21 Macrocyte) 4:04 AM) [facility]JvikjmoEWMFSYMDWW0535-45-38 09:04:00 Test Item Value Reference Range Interpretation Comments C-REACTIVE PROTEIN (test code = 25.1 C-REACTIVE PROTEIN) [facility] HospitalVogmvefHWMYBZWBYC2524-42-05 09:04:00 Test Item Value Reference Range Interpretation Comments Vanco Lvl (test code = Vanco Lvl) 15.2 [facility]2022-07-18 09:04:00 Test Item Value Reference Range Interpretation Comments Glucose Lvl (test code = Glucose Lvl) 59 70-99 [place] 074992-07-18 09:04:00 Test Item Value Reference Range Interpretation Comments BUN (test code = BUN) 41 7-22 [facility]2022-07-18 09:04:00 Test Item Value Reference Range Interpretation Comments Creatinine Lvl (test code = Creatinine 7.00 0.50-1.40 Lvl) [facility]2022-07-18 09:04:00 Test Item Value Reference Range Interpretation Comments Sodium Lvl (test code = Sodium Lvl) 134 135-145 [place] 074992-07-18 09:04:00 Test Item Value Reference Range Interpretation Comments Potassium Lvl (test code = Potassium 4.0 3.5-5.1 Lvl) [facility]2022-07-18 09:04:00 Test Item Value Reference Range Interpretation Comments Chloride Lvl (test code = Chloride Lvl) 102 95-109 [place] 074992-07-18 09:04:00 Test Item Value Reference Range Interpretation Comments CO2 (test code = CO2) 25 24-32 [place] 074992-07-18 09:04:00 Test Item Value Reference Range Interpretation Comments Calcium Lvl (test code = Calcium Lvl) 9.1 8.5-10.5 [place] 074992-07-18 09:04:00 Test Item Value Reference Range Interpretation Comments Total Protein (test code = Total 6.2 6.4-8.4 Protein) [place] 074992-07-18 09:04:00 Test Item Value Reference Range Interpretation Comments Albumin Lvl (test code = Albumin Lvl) 2.8 3.5-5.0 [place] 074992-07-18 09:04:00 Test Item Value Reference Range Interpretation Comments ALT (test code = ALT) 78 See_Comment [Auto mated message] The system which ge nerated this result transmit swathi reference range : <=65. The reference range was not used to interpr et this result as deny l/abnormal. [facility] [id number] 09:04:00 Test Item Value Reference Range Interpretation Comments AST (test code = AST) 117 See_Comment [Auto mated message] The system which ge nerated this result transmit swathi reference range : <=37. The reference range was not used to interpr et this result as deyn l/abnormal. [facility] [id number] 09:04:00 Test Item Value Reference Range Interpretation Comments Alk Phos (test code = Alk Phos) 251 39-136 [facility] [id number] 09:04:00 Test Item Value Reference Range Interpretation Comments Bili Total (test code = Bili Total) 0.9 0.2-1.3 [facility] [id number] 09:04:00 Test Item Value Reference Range Interpretation Comments AGAP (test code = AGAP) 11.0 10.0-20.0 [facility] [id number] 09:04:00 Test Item Value Reference Range Interpretation Comments B/C Ratio (test code = B/C Ratio) 6 1 6-25 [facility] [id number] 09:04:00 Test Item Value Reference Range Interpretation Comments Globulin (test code = Globulin) 3.4 2.7-4.2 [facility] [id number] 09:04:00 Test Item Value Reference Range Interpretation Comments A/G Ratio (test code = A/G Ratio) 0.8 1 0.7-1.6 [facility] [id number] 09:04:00 Test Item Value Reference Range Interpretation Comments eGFR (test code = eGFR) 8 [facility] HospitalAglegbfKZADOREPBM3272-20-96 09:04:00 Test Item Value Reference Range Interpretation Comments D-Dimer (test code = D-Dimer) 3.03 [facility] HospitalPcicbujUYBZHRZEMO4496-25-41 09:04:00 Test Item Value Reference Range Interpretation Comments WBC (test code = WBC) 3.6 3.7-10.4 [facility] HospitalKcpuhuoPVJIXOGIOJ7073-75-51 09:04:00 Test Item Value Reference Range Interpretation Comments RBC (test code = RBC) 2.07 4.70-6.10 [place] 152042-07-18 09:04:00 Test Item Value Reference Range Interpretation Comments Hgb (test code = Hgb) 7.5 14.0-18.0 [place] [address]-07-18 09:04:00 Test Item Value Reference Range Interpretation Comments Hct (test code = Hct) 22.0 42.0-54.0 [place] 152042-07-18 09:04:00 Test Item Value Reference Range Interpretation Comments MCV (test code = MCV) 106.3 80.0-94.0 [place] 152042-07-18 09:04:00 Test Item Value Reference Range Interpretation Comments MCH (test code = MCH) 36.1 pg 27.0-31.0 [place] 152042-07-18 09:04:00 Test Item Value Reference Range Interpretation Comments MCHC (test code = MCHC) 33.9 32.0-36.0 [place] 152042-07-18 09:04:00 Test Item Value Reference Range Interpretation Comments RDW (test code = RDW) 23.9 11.5-14.5 [place] 152042-07-18 09:04:00 Test Item Value Reference Range Interpretation Comments Platelet (test code = Platelet) 133 133-450 [facility] HospitalQxlqjyvPWQUJHZHOU1448-77-44 09:04:00 Test Item Value Reference Range Interpretation Comments MPV (test code = MPV) 8.1 7.4-10.4 [place] 152042-07-18 09:04:00 Test Item Value Reference Range Interpretation Comments Segs (test code = Segs) 60.8 45.0-75.0 [place] 152042-07-18 09:04:00 Test Item Value Reference Range Interpretation Comments Lymphocytes (test code = Lymphocytes) 22.3 20.0-40.0 [place] 152042-07-18 09:04:00 Test Item Value Reference Range Interpretation Comments Monocytes (test code = Monocytes) 13.9 2.0-12.0 [place] 152042-07-18 09:04:00 Test Item Value Reference Range Interpretation Comments Eosinophils (test code = 2.6 See_Comment [A utomated message] The Eosinophils) system which ge nerated this result tra nsmitted reference range : <=4.0. The reference r samantha was not used to int erpret this result as normal/abnormal . [facility] HospitalVurvohrLSJBPEVNLR6763-98-59 09:04:00 Test Item Value Reference Range Interpretation Comments Basophils (test code = 0.4 See_Comment [Aut omated message] The Basophils) system which ge nerated this result tra nsmitted reference range : <=1.0. The reference r samantha was not used to int erpret this result as normal/abnormal . [facility] HospitalLayykttGQMVTILMWH9641-31-29 09:04:00 Test Item Value Reference Range Interpretation Comments Neutrophils # (test code = Neutrophils 2.2 1.5-8.1 #) [facility] HospitalNaomuqsGVFHCAUVQN0434-85-22 09:04:00 Test Item Value Reference Range Interpretation Comments Lymphocytes # (test code = Lymphocytes 0.8 1.0-5.5 #) [facility] HospitalIpuloxyBJOKMXZGRX9645-44-05 09:04:00 Test Item Value Reference Range Interpretation Comments Monocytes # (test code 0.5 See_Comment [Aut omated message] The = Monocytes #) system which generated this result tra nsmitted reference range : <=0.8. The reference r samantha was not used to int erpret this result as normal/abnormal . [facility] HospitalKebotmwAMLPEKXTKP3754-47-26 09:04:00 Test Item Value Reference Range Interpretation Comments Eosinophils # (test code 0.1 See_Comment [A utomated message] The = Eosinophils #) system whic h generated this result tra nsmitted reference range : <=0.5. The reference r samantha was not used to int erpret this result as normal/abnormal . [facility] HospitalOhcmwvkVRRVUDHOUE9664-41-26 09:04:00 Test Item Value Reference Range Interpretation Comments Macrocyte (test code = 1+ *ABN*(12/15/21 Macrocyte) 4:04 AM) [facility] HospitalBymcdleWWJDCELPBB8506-58-70 09:04:00 Test Item Value Reference Range Interpretation Comments C-REACTIVE PROTEIN (test code = 25.1 C-REACTIVE PROTEIN) [facility] HospitalSsuzyefVSBYFZGOCF0479-52-07 09:04:00 Test Item Value Reference Range Interpretation Comments Vanco Lvl (test code = Vanco Lvl) 15.2 [place] 074992-07-18 09:04:00 Test Item Value Reference Range Interpretation Comments Glucose Lvl (test code = Glucose Lvl) 59 70-99 [place] 074992-07-18 09:04:00 Test Item Value Reference Range Interpretation Comments BUN (test code = BUN) 41 7-22 [place] 074992-07-18 09:04:00 Test Item Value Reference Range Interpretation Comments Creatinine Lvl (test code = Creatinine 7.00 0.50-1.40 Lvl) [place] 074992-07-18 09:04:00 Test Item Value Reference Range Interpretation Comments Sodium Lvl (test code = Sodium Lvl) 134 135-145 [place] 074992-07-18 09:04:00 Test Item Value Reference Range Interpretation Comments Potassium Lvl (test code = Potassium 4.0 3.5-5.1 Lvl) [place] 074992-07-18 09:04:00 Test Item Value Reference Range Interpretation Comments Chloride Lvl (test code = Chloride Lvl) 102 95-109 [place] 074992-07-18 09:04:00 Test Item Value Reference Range Interpretation Comments CO2 (test code = CO2) 25 24-32 [place] 074992-07-18 09:04:00 Test Item Value Reference Range Interpretation Comments Calcium Lvl (test code = Calcium Lvl) 9.1 8.5-10.5 [place] 074992-07-18 09:04:00 Test Item Value Reference Range Interpretation Comments Total Protein (test code = Total 6.2 6.4-8.4 Protein) [place] 074992-07-18 09:04:00 Test Item Value Reference Range Interpretation Comments Albumin Lvl (test code = Albumin Lvl) 2.8 3.5-5.0 [place] 074992-07-18 09:04:00 Test Item Value Reference Range Interpretation Comments ALT (test code = ALT) 78 See_Comment [Auto mated message] The system which ge nerated this result transmit swathi reference range : <=65. The reference range was not used to interpr et this result as deny l/abnormal. [place] 074992-07-18 09:04:00 Test Item Value Reference Range Interpretation Comments AST (test code = AST) 117 See_Comment [Auto mated message] The system which ge nerated this result transmit swathi reference range : <=37. The reference range was not used to interpr et this result as deny l/abnormal. [facility] [id number] 09:04:00 Test Item Value Reference Range Interpretation Comments Alk Phos (test code = Alk Phos) 251 39-136 [facility] [id number] 09:04:00 Test Item Value Reference Range Interpretation Comments Bili Total (test code = Bili Total) 0.9 0.2-1.3 [facility] [id number] 09:04:00 Test Item Value Reference Range Interpretation Comments AGAP (test code = AGAP) 11.0 10.0-20.0 [facility] [id number] 09:04:00 Test Item Value Reference Range Interpretation Comments B/C Ratio (test code = B/C Ratio) 6 1 6-25 [facility] [id number] 09:04:00 Test Item Value Reference Range Interpretation Comments Globulin (test code = Globulin) 3.4 2.7-4.2 [facility] [id number] 09:04:00 Test Item Value Reference Range Interpretation Comments A/G Ratio (test code = A/G Ratio) 0.8 1 0.7-1.6 [facility] [id number] 09:04:00 Test Item Value Reference Range Interpretation Comments eGFR (test code = eGFR) 8 [facility] HospitalZnvrnknFVVXIKZXPI9988-74-65 09:04:00 Test Item Value Reference Range Interpretation Comments D-Dimer (test code = D-Dimer) 3.03 [place] 152042-07-18 09:04:00 Test Item Value Reference Range Interpretation Comments WBC (test code = WBC) 3.6 3.7-10.4 [place] 152042-07-18 09:04:00 Test Item Value Reference Range Interpretation Comments RBC (test code = RBC) 2.07 4.70-6.10 [place] 152042-07-18 09:04:00 Test Item Value Reference Range Interpretation Comments Hgb (test code = Hgb) 7.5 14.0-18.0 [place] 152042-07-18 09:04:00 Test Item Value Reference Range Interpretation Comments Hct (test code = Hct) 22.0 42.0-54.0 [place] 152042-07-18 09:04:00 Test Item Value Reference Range Interpretation Comments MCV (test code = MCV) 106.3 80.0-94.0 [place] [address]-07-18 09:04:00 Test Item Value Reference Range Interpretation Comments MCH (test code = MCH) 36.1 pg 27.0-31.0 [place] [address]-07-18 09:04:00 Test Item Value Reference Range Interpretation Comments MCHC (test code = MCHC) 33.9 32.0-36.0 [place] 152042-07-18 09:04:00 Test Item Value Reference Range Interpretation Comments RDW (test code = RDW) 23.9 11.5-14.5 [place] 152042-07-18 09:04:00 Test Item Value Reference Range Interpretation Comments Platelet (test code = Platelet) 133 133-450 [place] 152042-07-18 09:04:00 Test Item Value Reference Range Interpretation Comments MPV (test code = MPV) 8.1 7.4-10.4 [place] [address]-07-18 09:04:00 Test Item Value Reference Range Interpretation Comments Segs (test code = Segs) 60.8 45.0-75.0 [place] 152042-07-18 09:04:00 Test Item Value Reference Range Interpretation Comments Lymphocytes (test code = Lymphocytes) 22.3 20.0-40.0 [place] 152042-07-18 09:04:00 Test Item Value Reference Range Interpretation Comments Monocytes (test code = Monocytes) 13.9 2.0-12.0 [place] [address]-07-18 09:04:00 Test Item Value Reference Range Interpretation Comments Eosinophils (test code = 2.6 See_Comment [A utomated message] The Eosinophils) system which ge nerated this result tra nsmitted reference range : <=4.0. The reference r samantha was not used to int erpret this result as normal/abnormal . [place] 152042-07-18 09:04:00 Test Item Value Reference Range Interpretation Comments Basophils (test code = 0.4 See_Comment [Aut omated message] The Basophils) system which ge nerated this result tra nsmitted reference range : <=1.0. The reference r samantha was not used to int erpret this result as normal/abnormal . [facility]ZECAWJJ1692[facility]28-55 09:04:00 Test Item Value Reference Range Interpretation Comments Neutrophils # (test code = Neutrophils 2.2 1.5-8.1 #) [facility]PfyikcfBGRGTSUQTX4180-96-41 09:04:00 Test Item Value Reference Range Interpretation Comments Lymphocytes # (test code = Lymphocytes 0.8 1.0-5.5 #) [facility] HospitalFnnohtbBWLFENGOSP6649-13-67 09:04:00 Test Item Value Reference Range Interpretation Comments Monocytes # (test code 0.5 See_Comment [Aut omated message] The = Monocytes #) system which generated this result tra nsmitted reference range : <=0.8. The reference r samantha was not used to int erpret this result as normal/abnormal . [facility] HospitalNtintudACCQBNKNZP2576-32-46 09:04:00 Test Item Value Reference Range Interpretation Comments Eosinophils # (test code 0.1 See_Comment [A utomated message] The = Eosinophils #) system whic h generated this result tra nsmitted reference range : <=0.5. The reference r samantha was not used to int erpret this result as normal/abnormal . [facility] HospitalUybdpcaPXQQMBTLMB4536-98-80 09:04:00 Test Item Value Reference Range Interpretation Comments Macrocyte (test code = 1+ *ABN*(12/15/21 Macrocyte) 4:04 AM) [facility] HospitalIuudjhfQJFNVROETZ6713-23-30 09:04:00 Test Item Value Reference Range Interpretation Comments C-REACTIVE PROTEIN (test code = 25.1 C-REACTIVE PROTEIN) [facility] HospitalJvmrtqyNPMVCPRBXC2441-66-20 09:04:00 Test Item Value Reference Range Interpretation Comments Vanco Lvl (test code = Vanco Lvl) 15.2 [facility] [id number] 09:04:00 Test Item Value Reference Range Interpretation Comments Glucose Lvl (test code = Glucose Lvl) 59 70-99 [facility] [id number] 09:04:00 Test Item Value Reference Range Interpretation Comments BUN (test code = BUN) 41 7-22 [place] 074992-07-18 09:04:00 Test Item Value Reference Range Interpretation Comments Creatinine Lvl (test code = Creatinine 7.00 0.50-1.40 Lvl) [place] 074992-07-18 09:04:00 Test Item Value Reference Range Interpretation Comments Sodium Lvl (test code = Sodium Lvl) 134 135-145 [place] 074992-07-18 09:04:00 Test Item Value Reference Range Interpretation Comments Potassium Lvl (test code = Potassium 4.0 3.5-5.1 Lvl) [place] [address]-07-18 09:04:00 Test Item Value Reference Range Interpretation Comments Chloride Lvl (test code = Chloride Lvl) 102 95-109 [place] 074992-07-18 09:04:00 Test Item Value Reference Range Interpretation Comments CO2 (test code = CO2) 25 24-32 [place] 074992-07-18 09:04:00 Test Item Value Reference Range Interpretation Comments Calcium Lvl (test code = Calcium Lvl) 9.1 8.5-10.5 [place] 074992-07-18 09:04:00 Test Item Value Reference Range Interpretation Comments Total Protein (test code = Total 6.2 6.4-8.4 Protein) [place] 074992-07-18 09:04:00 Test Item Value Reference Range Interpretation Comments Albumin Lvl (test code = Albumin Lvl) 2.8 3.5-5.0 [place] [address]-07-18 09:04:00 Test Item Value Reference Range Interpretation Comments ALT (test code = ALT) 78 See_Comment [Auto mated message] The system which ge nerated this result transmit swathi reference range : <=65. The reference range was not used to interpr et this result as deny l/abnormal. [place] [address]-07-18 09:04:00 Test Item Value Reference Range Interpretation Comments AST (test code = AST) 117 See_Comment [Auto mated message] The system which ge nerated this result transmit swathi reference range : <=37. The reference range was not used to interpr et this result as deny l/abnormal. [place] [address]-07-18 09:04:00 Test Item Value Reference Range Interpretation Comments Alk Phos (test code = Alk Phos) 251 39-136 [place] 074992-07-18 09:04:00 Test Item Value Reference Range Interpretation Comments Bili Total (test code = Bili Total) 0.9 0.2-1.3 [place] 074992-07-18 09:04:00 Test Item Value Reference Range Interpretation Comments AGAP (test code = AGAP) 11.0 10.0-20.0 [place] 074992-07-18 09:04:00 Test Item Value Reference Range Interpretation Comments B/C Ratio (test code = B/C Ratio) 6 1 6-25 [place] 074992-07-18 09:04:00 Test Item Value Reference Range Interpretation Comments Globulin (test code = Globulin) 3.4 2.7-4.2 [place] 074992-07-18 09:04:00 Test Item Value Reference Range Interpretation Comments A/G Ratio (test code = A/G Ratio) 0.8 1 0.7-1.6 [place] 074992-07-18 09:04:00 Test Item Value Reference Range Interpretation Comments eGFR (test code = eGFR) 8 [place] 152042-07-18 09:04:00 Test Item Value Reference Range Interpretation Comments D-Dimer (test code = D-Dimer) 3.03 [place] 152042-07-18 09:04:00 Test Item Value Reference Range Interpretation Comments WBC (test code = WBC) 3.6 3.7-10.4 [place] [address]-07-18 09:04:00 Test Item Value Reference Range Interpretation Comments RBC (test code = RBC) 2.07 4.70-6.10 [place] 152042-07-18 09:04:00 Test Item Value Reference Range Interpretation Comments Hgb (test code = Hgb) 7.5 14.0-18.0 [place] [address]-07-18 09:04:00 Test Item Value Reference Range Interpretation Comments Hct (test code = Hct) 22.0 42.0-54.0 [place] 152042-07-18 09:04:00 Test Item Value Reference Range Interpretation Comments MCV (test code = MCV) 106.3 80.0-94.0 [place] 152042-07-18 09:04:00 Test Item Value Reference Range Interpretation Comments MCH (test code = MCH) 36.1 pg 27.0-31.0 [place] 152042-07-18 09:04:00 Test Item Value Reference Range Interpretation Comments MCHC (test code = MCHC) 33.9 32.0-36.0 [place] 152042-07-18 09:04:00 Test Item Value Reference Range Interpretation Comments RDW (test code = RDW) 23.9 11.5-14.5 [place] 152042-07-18 09:04:00 Test Item Value Reference Range Interpretation Comments Platelet (test code = Platelet) 133 133-450 [place] 152042-07-18 09:04:00 Test Item Value Reference Range Interpretation Comments MPV (test code = MPV) 8.1 7.4-10.4 [place] 152042-07-18 09:04:00 Test Item Value Reference Range Interpretation Comments Segs (test code = Segs) 60.8 45.0-75.0 [place] 152042-07-18 09:04:00 Test Item Value Reference Range Interpretation Comments Lymphocytes (test code = Lymphocytes) 22.3 20.0-40.0 [place] 152042-07-18 09:04:00 Test Item Value Reference Range Interpretation Comments Monocytes (test code = Monocytes) 13.9 2.0-12.0 [place] 152042-07-18 09:04:00 Test Item Value Reference Range Interpretation Comments Eosinophils (test code = 2.6 See_Comment [A utomated message] The Eosinophils) system which ge nerated this result tra nsmitted reference range : <=4.0. The reference r samantha was not used to int erpret this result as normal/abnormal . [place] [address]-07-18 09:04:00 Test Item Value Reference Range Interpretation Comments Basophils (test code = 0.4 See_Comment [Aut omated message] The Basophils) system which ge nerated this result tra nsmitted reference range : <=1.0. The reference r samantha was not used to int erpret this result as normal/abnormal . [facility] HospitalNtrgqsrSNYMGMQZFD7400-32-45 09:04:00 Test Item Value Reference Range Interpretation Comments Neutrophils # (test code = Neutrophils 2.2 1.5-8.1 #) [facility] HospitalQsvzqsjHRQBAMOXWM7467-14-32 09:04:00 Test Item Value Reference Range Interpretation Comments Lymphocytes # (test code = Lymphocytes 0.8 1.0-5.5 #) [facility] HospitalJxsuqtyRAFFWVXYFA2299-63-18 09:04:00 Test Item Value Reference Range Interpretation Comments Monocytes # (test code 0.5 See_Comment [Aut omated message] The = Monocytes #) system which generated this result tra nsmitted reference range : <=0.8. The reference r samantha was not used to int erpret this result as normal/abnormal . [facility] HospitalQtfuicbJJTQHZTFNW2703-00-31 09:04:00 Test Item Value Reference Range Interpretation Comments Eosinophils # (test code 0.1 See_Comment [A utomated message] The = Eosinophils #) system whic h generated this result tra nsmitted reference range : <=0.5. The reference r samantha was not used to int erpret this result as normal/abnormal . [facility] HospitalAzbjdkbMVAHMFLHAF8701-30-78 09:04:00 Test Item Value Reference Range Interpretation Comments Macrocyte (test code = 1+ *ABN*(12/15/21 Macrocyte) 4:04 AM) [facility] HospitalEjpskynAXFXZODRCD8305-75-61 09:04:00 Test Item Value Reference Range Interpretation Comments C-REACTIVE PROTEIN (test code = 25.1 C-REACTIVE PROTEIN) [facility] HospitalVpxdqarRSTKKQRAWY6450-02-22 09:04:00 Test Item Value Reference Range Interpretation Comments Vanco Lvl (test code = Vanco Lvl) 15.2 [facility] HospitalEquals6 HTJHF9147-96-87 09:04:00 Test Item Value Reference Range Interpretation Comments Glucose Lvl (test code = Glucose Lvl) 59 70-99 [facility]2022-07-18 09:04:00 Test Item Value Reference Range Interpretation Comments BUN (test code = BUN) 41 7- [facility]2022-07-18 09:04:00 Test Item Value Reference Range Interpretation Comments Creatinine Lvl (test code = Creatinine 7.00 0.50-1.40 Lvl) [place] 074992-07-18 09:04:00 Test Item Value Reference Range Interpretation Comments Sodium Lvl (test code = Sodium Lvl) 134 135-145 [place] [address]-07-18 09:04:00 Test Item Value Reference Range Interpretation Comments Potassium Lvl (test code = Potassium 4.0 3.5-5.1 Lvl) [place] [address]-07-18 09:04:00 Test Item Value Reference Range Interpretation Comments Chloride Lvl (test code = Chloride Lvl) 102 95-109 [place] 074992-07-18 09:04:00 Test Item Value Reference Range Interpretation Comments CO2 (test code = CO2) 25 24-32 [place] [address]-07-18 09:04:00 Test Item Value Reference Range Interpretation Comments Calcium Lvl (test code = Calcium Lvl) 9.1 8.5-10.5 [place] 074992-07-18 09:04:00 Test Item Value Reference Range Interpretation Comments Total Protein (test code = Total 6.2 6.4-8.4 Protein) [place] [address]-07-18 09:04:00 Test Item Value Reference Range Interpretation Comments Albumin Lvl (test code = Albumin Lvl) 2.8 3.5-5.0 [place] [address]-07-18 09:04:00 Test Item Value Reference Range Interpretation Comments ALT (test code = ALT) 78 See_Comment [Auto mated message] The system which ge nerated this result transmit swathi reference range : <=65. The reference range was not used to interpr et this result as deny l/abnormal. [place] [address]-07-18 09:04:00 Test Item Value Reference Range Interpretation Comments AST (test code = AST) 117 See_Comment [Auto mated message] The system which ge nerated this result transmit swathi reference range : <=37. The reference range was not used to interpr et this result as deny l/abnormal. [place] 074992-07-18 09:04:00 Test Item Value Reference Range Interpretation Comments Alk Phos (test code = Alk Phos) 251 39-136 [place] [address]-07-18 09:04:00 Test Item Value Reference Range Interpretation Comments Bili Total (test code = Bili Total) 0.9 0.2-1.3 [place] 074992-07-18 09:04:00 Test Item Value Reference Range Interpretation Comments AGAP (test code = AGAP) 11.0 10.0-20.0 [place] 074992-07-18 09:04:00 Test Item Value Reference Range Interpretation Comments B/C Ratio (test code = B/C Ratio) 6 1 6-25 [place] 074992-07-18 09:04:00 Test Item Value Reference Range Interpretation Comments Globulin (test code = Globulin) 3.4 2.7-4.2 [place] 074992-07-18 09:04:00 Test Item Value Reference Range Interpretation Comments A/G Ratio (test code = A/G Ratio) 0.8 1 0.7-1.6 [place] 074992-07-18 09:04:00 Test Item Value Reference Range Interpretation Comments eGFR (test code = eGFR) 8 [facility] HospitalOxtvwduKUEGPAYQKP7952-28-40 09:04:00 Test Item Value Reference Range Interpretation Comments D-Dimer (test code = D-Dimer) 3.03 [place] 152042-07-18 09:04:00 Test Item Value Reference Range Interpretation Comments WBC (test code = WBC) 3.6 3.7-10.4 [place] 152042-07-18 09:04:00 Test Item Value Reference Range Interpretation Comments RBC (test code = RBC) 2.07 4.70-6.10 [place] 152042-07-18 09:04:00 Test Item Value Reference Range Interpretation Comments Hgb (test code = Hgb) 7.5 14.0-18.0 [place] 152042-07-18 09:04:00 Test Item Value Reference Range Interpretation Comments Hct (test code = Hct) 22.0 42.0-54.0 [place] 152042-07-18 09:04:00 Test Item Value Reference Range Interpretation Comments MCV (test code = MCV) 106.3 80.0-94.0 [place] 152042-07-18 09:04:00 Test Item Value Reference Range Interpretation Comments MCH (test code = MCH) 36.1 pg 27.0-31.0 [place] [address]-07-18 09:04:00 Test Item Value Reference Range Interpretation Comments MCHC (test code = MCHC) 33.9 32.0-36.0 [place] [address]-07-18 09:04:00 Test Item Value Reference Range Interpretation Comments RDW (test code = RDW) 23.9 11.5-14.5 [place] 152042-07-18 09:04:00 Test Item Value Reference Range Interpretation Comments Platelet (test code = Platelet) 133 133-450 [place] 152042-07-18 09:04:00 Test Item Value Reference Range Interpretation Comments MPV (test code = MPV) 8.1 7.4-10.4 [place] [address]-07-18 09:04:00 Test Item Value Reference Range Interpretation Comments Segs (test code = Segs) 60.8 45.0-75.0 [place] 152042-07-18 09:04:00 Test Item Value Reference Range Interpretation Comments Lymphocytes (test code = Lymphocytes) 22.3 20.0-40.0 [place] 152042-07-18 09:04:00 Test Item Value Reference Range Interpretation Comments Monocytes (test code = Monocytes) 13.9 2.0-12.0 [place] 152042-07-18 09:04:00 Test Item Value Reference Range Interpretation Comments Eosinophils (test code = 2.6 See_Comment [A utomated message] The Eosinophils) system which ge nerated this result tra nsmitted reference range : <=4.0. The reference r samantha was not used to int erpret this result as normal/abnormal . [place] 152042-07-18 09:04:00 Test Item Value Reference Range Interpretation Comments Basophils (test code = 0.4 See_Comment [Aut omated message] The Basophils) system which ge nerated this result tra nsmitted reference range : <=1.0. The reference r samantha was not used to int erpret this result as normal/abnormal . [place] 152042-07-18 09:04:00 Test Item Value Reference Range Interpretation Comments Neutrophils # (test code = Neutrophils 2.2 1.5-8.1 #) [place] 152042-07-18 09:04:00 Test Item Value Reference Range Interpretation Comments Lymphocytes # (test code = Lymphocytes 0.8 1.0-5.5 #) [facility] HospitalKbgcwinATUFAHKAMO0242-32-85 09:04:00 Test Item Value Reference Range Interpretation Comments Monocytes # (test code 0.5 See_Comment [Aut omated message] The = Monocytes #) system which generated this result tra nsmitted reference range : <=0.8. The reference r samantha was not used to int erpret this result as normal/abnormal . [facility]KS[facility]63[facility]:04:00 Test Item Value Reference Range Interpretation Comments Eosinophils # (test code 0.1 See_Comment [A utomated message] The = Eosinophils #) system whic h generated this result tra nsmitted reference range : <=0.5. The reference r samantha was not used to int erpret this result as normal/abnormal . [facility] CenterOuntlbjWWOGDDRSNN5667-54-79 09:04:00 Test Item Value Reference Range Interpretation Comments Macrocyte (test code = 1+ *ABN*(12/15/21 Macrocyte) 4:04 AM) [facility] HospitalCfcptxsQAYZGSKMAQ6779-69-17 09:04:00 Test Item Value Reference Range Interpretation Comments C-REACTIVE PROTEIN (test code = 25.1 C-REACTIVE PROTEIN) [facility] HospitalTmjaktpJYYNPDLLJF9880-64-93 09:04:00 Test Item Value Reference Range Interpretation Comments Vanco Lvl (test code = Vanco Lvl) 15.2 [facility]annBACT[facility] - [id number] 00:29:00 Test Item Value Reference Range Interpretation Comments MRSA by PCR (test Negative (12/14/21 7:29 code = MRSA by PCR) PM) [facility]annBA[facility] - [id number] 00:29:00 Test Item Value Reference Range Interpretation Comments MRSA by PCR (test Negative (12/14/21 7:29 code = MRSA by PCR) PM) [facility]annBACT[facility] - [id number] 00:29:00 Test Item Value Reference Range Interpretation Comments MRSA by PCR (test Negative (12/14/21 7:29 code = MRSA by PCR) PM) [facility]annBA[facility] - [id number] 00:29:00 Test Item Value Reference Range Interpretation Comments MRSA by PCR (test Negative (12/14/21 7:29 code = MRSA by PCR) PM) [facility]annBA[facility] - [id number] 00:29:00 Test Item Value Reference Range Interpretation Comments MRSA by PCR (test Negative (12/14/21 7:29 code = MRSA by PCR) PM) [facility] - [id number] 00:29:00 Test Item Value Reference Range Interpretation Comments MRSA by PCR (test Negative (12/14/21 7:29 code = MRSA by PCR) PM) [facility] - [id number] 00:29:00 Test Item Value Reference Range Interpretation Comments MRSA by PCR (test Negative (12/14/21 7:29 code = MRSA by PCR) PM) [facility]ann[facility] - [id number] 00:29:00 Test Item Value Reference Range Interpretation Comments MRSA by PCR (test Negative (12/14/21 7:29 code = MRSA by PCR) PM) [facility] - [id number] 00:29:00 Test Item Value Reference Range Interpretation Comments MRSA by PCR (test Negative (12/14/21 7:29 code = MRSA by PCR) PM) [facility] - [id number] 00:29:00 Test Item Value Reference Range Interpretation Comments MRSA by PCR (test Negative (12/14/21 7:29 code = MRSA by PCR) PM) [facility] HospitalannDCLECULAR [id number] 23:56:00 Test Item Value Reference Range Interpretation Comments Source Respiratory Nasophrngl Swb Panel PCR (test code = *NA*(12/14/21 6:56 PM) Source Respiratory Panel PCR) [facility]annDCLE[facility] [id number] 23:56:00 Test Item Value Reference Range Interpretation Comments Influenza A PCR (test Negative (12/14/21 6:56 code = Influenza A PCR) PM) [facility]annDCLE[facility] [id number] 23:56:00 Test Item Value Reference Range Interpretation Comments Influenza B PCR (test Negative (12/14/21 6:56 code = Influenza B PCR) PM) [facility]annDCLE[facility] [id number] 23:56:00 Test Item Value Reference Range Interpretation Comments RSV PCR (test code = Negative (7/17/22 6:56 RSV PCR) PM) [facility]annDCLE[facility] [id number] 23:56:00 Test Item Value Reference Range Interpretation Comments Source Respiratory Nasophrngl Swb Panel PCR (test code = *NA*(12/14/21 6:56 PM) Source Respiratory Panel PCR) [facility]annDCLE[facility] [id number] 23:56:00 Test Item Value Reference Range Interpretation Comments Influenza A PCR (test Negative (12/14/21 6:56 code = Influenza A PCR) PM) [facility]annDCLE[facility] [id number] 23:56:00 Test Item Value Reference Range Interpretation Comments Influenza B PCR (test Negative (12/14/21 6:56 code = Influenza B PCR) PM) [facility] [id number] 23:56:00 Test Item Value Reference Range Interpretation Comments RSV PCR (test code = Negative (12/14/21 6:56 RSV PCR) PM) [facility] [id number] 23:56:00 Test Item Value Reference Range Interpretation Comments Source Respiratory Nasophrngl Swb Panel PCR (test code = *NA*(12/14/21 6:56 PM) Source Respiratory Panel PCR) [facility] [id number] 23:56:00 Test Item Value Reference Range Interpretation Comments Influenza A PCR (test Negative (12/14/21 6:56 code = Influenza A PCR) PM) [facility]annDCLECMER[facility] [id number] 23:56:00 Test Item Value Reference Range Interpretation Comments Influenza B PCR (test Negative (12/14/21 6:56 code = Influenza B PCR) PM) [facility]annDCLECMER[facility] [id number] 23:56:00 Test Item Value Reference Range Interpretation Comments RSV PCR (test code = Negative (12/14/21 6:56 RSV PCR) PM) [facility] [id number] 23:56:00 Test Item Value Reference Range Interpretation Comments Source Respiratory Nasophrngl Swb Panel PCR (test code = *NA*(12/14/21 6:56 PM) Source Respiratory Panel PCR) [facility]annDCLE[facility] [id number] 23:56:00 Test Item Value Reference Range Interpretation Comments Influenza A PCR (test Negative (12/14/21 6:56 code = Influenza A PCR) PM) [facility]annDCLE[facility] [id number] 23:56:00 Test Item Value Reference Range Interpretation Comments Influenza B PCR (test Negative (12/14/21 6:56 code = Influenza B PCR) PM) [facility]annDCLE[facility] [id number] 23:56:00 Test Item Value Reference Range Interpretation Comments RSV PCR (test code = Negative (12/14/21 6:56 RSV PCR) PM) [facility]annDC[facility]CM[facility] [id number] 23:56:00 Test Item Value Reference Range Interpretation Comments Source Respiratory Nasophrngl Swb Panel PCR (test code = *NA*(12/14/21 6:56 PM) Source Respiratory Panel PCR) [facility] [id number] 23:56:00 Test Item Value Reference Range Interpretation Comments Influenza A PCR (test Negative (12/14/21 6:56 code = Influenza A PCR) PM) [facility]annDCLECMER[facility] [id number] 23:56:00 Test Item Value Reference Range Interpretation Comments Influenza B PCR (test Negative (12/14/21 6:56 code = Influenza B PCR) PM) [facility]annDCLECMER[facility] [id number] 23:56:00 Test Item Value Reference Range Interpretation Comments RSV PCR (test code = Negative (12/14/21 6:56 RSV PCR) PM) [facility] [id number] 23:56:00 Test Item Value Reference Range Interpretation Comments Source Respiratory Nasophrngl Swb Panel PCR (test code = *NA*(12/14/21 6:56 PM) Source Respiratory Panel PCR) [facility] [id number] 23:56:00 Test Item Value Reference Range Interpretation Comments Influenza A PCR (test Negative (12/14/21 6:56 code = Influenza A PCR) PM) [facility] [id number] 23:56:00 Test Item Value Reference Range Interpretation Comments Influenza B PCR (test Negative (12/14/21 6:56 code = Influenza B PCR) PM) [facility]annDCLE[facility] [id number] 23:56:00 Test Item Value Reference Range Interpretation Comments RSV PCR (test code = Negative (12/14/21 6:56 RSV PCR) PM) [facility]ann[facility] [id number] 23:56:00 Test Item Value Reference Range Interpretation Comments Source Respiratory Nasophrngl Swb Panel PCR (test code = *NA*(12/14/21 6:56 PM) Source Respiratory Panel PCR) [facility]annDCLE[facility] [id number] 23:56:00 Test Item Value Reference Range Interpretation Comments Influenza A PCR (test Negative (12/14/21 6:56 code = Influenza A PCR) PM) [facility] [facility]annDCLECULAR [id number] 23:56:00 Test Item Value Reference Range Interpretation Comments Influenza B PCR (test Negative (12/14/21 6:56 code = Influenza B PCR) PM) [facility] [id number] 23:56:00 Test Item Value Reference Range Interpretation Comments RSV PCR (test code = Negative (12/14/21 6:56 RSV PCR) PM) [facility] [id number] 23:56:00 Test Item Value Reference Range Interpretation Comments Source Respiratory Nasophrngl Swb Panel PCR (test code = *NA*(12/14/21 6:56 PM) Source Respiratory Panel PCR) [facility] [id number] 23:56:00 Test Item Value Reference Range Interpretation Comments Influenza A PCR (test Negative (12/14/21 6:56 code = Influenza A PCR) PM) [facility] [id number] 23:56:00 Test Item Value Reference Range Interpretation Comments Influenza B PCR (test Negative (12/14/21 6:56 code = Influenza B PCR) PM) [facility] [id number] 23:56:00 Test Item Value Reference Range Interpretation Comments RSV PCR (test code = Negative (12/14/21 6:56 RSV PCR) PM) [facility] [id number] 23:56:00 Test Item Value Reference Range Interpretation Comments Source Respiratory Nasophrngl Swb Panel PCR (test code = *NA*(12/14/21 6:56 PM) Source Respiratory Panel PCR) [facility] [id number] 23:56:00 Test Item Value Reference Range Interpretation Comments Influenza A PCR (test Negative (12/14/21 6:56 code = Influenza A PCR) PM) [facility] [id number] 23:56:00 Test Item Value Reference Range Interpretation Comments Influenza B PCR (test Negative (12/14/21 6:56 code = Influenza B PCR) PM) [facility] [id number] 23:56:00 Test Item Value Reference Range Interpretation Comments RSV PCR (test code = Negative (12/14/21 6:56 RSV PCR) PM) [facility] [id number] 23:56:00 Test Item Value Reference Range Interpretation Comments Source Respiratory Nasophrngl Swb Panel PCR (test code = *NA*(12/14/21 6:56 PM) Source Respiratory Panel PCR) [facility] [id number] 23:56:00 Test Item Value Reference Range Interpretation Comments Influenza A PCR (test Negative (12/14/21 6:56 code = Influenza A PCR) PM) [facility] [id number] 23:56:00 Test Item Value Reference Range Interpretation Comments Influenza B PCR (test Negative (12/14/21 6:56 code = Influenza B PCR) PM) [facility]annDCLE[facility] [id number] 23:56:00 Test Item Value Reference Range Interpretation Comments RSV PCR (test code = Negative (12/14/21 6:56 RSV PCR) PM) [facility] HospitalCheck I'm HereAC [id number] 23:55:00 Test Item Value Reference Range Interpretation Comments BNP (test code = BNP) 1994 [facility] [employer] [id number] 23:55:00 Test Item Value Reference Range Interpretation Comments Procalcitonin Lvl (test 0.80 See_Comment [Au tomated message] code = Procalcitonin Lvl) Th e system which generated this result transmitted ref erence range: <=0.10. The reference range was not used to interpr et this result as normal/abnormal . [facility] HospitalannInfinite Executive Car ServiceDIAC [id number] 23:55:00 Test Item Value Reference Range Interpretation Comments BNP (test code = BNP) 1994 [facility] [employer] [id number] 23:55:00 Test Item Value Reference Range Interpretation Comments Procalcitonin Lvl (test 0.80 See_Comment [Au tomated message] code = Procalcitonin Lvl) Th e system which generated this result transmitted ref erence range: <=0.10. The reference range was not used to interpr et this result as normal/abnormal . [facility] [employer]2022-07-17 23:55:00 Test Item Value Reference Range Interpretation Comments BNP (test code = BNP) 1994 [facility] [employer] [id number] 23:55:00 Test Item Value Reference Range Interpretation Comments Procalcitonin Lvl (test 0.80 See_Comment [Au tomated message] code = Procalcitonin Lvl) Th e system which generated this result transmitted ref erence range: <=0.10. The reference range was not used to interpr et this result as normal/abnormal . [facility] [employer]2022-07-17 23:55:00 Test Item Value Reference Range Interpretation Comments BNP (test code = BNP) 1994 [facility] [employer] [id number] 23:55:00 Test Item Value Reference Range Interpretation Comments Procalcitonin Lvl (test 0.80 See_Comment [Au tomated message] code = Procalcitonin Lvl) Th e system which generated this result transmitted ref erence range: <=0.10. The reference range was not used to interpr et this result as normal/abnormal . [facility] [employer]2022-07-17 23:55:00 Test Item Value Reference Range Interpretation Comments BNP (test code = BNP) 1994 [facility] [employer] [id number] 23:55:00 Test Item Value Reference Range Interpretation Comments Procalcitonin Lvl (test 0.80 See_Comment [Au tomated message] code = Procalcitonin Lvl) Th e system which generated this result transmitted ref erence range: <=0.10. The reference range was not used to interpr et this result as normal/abnormal . [facility] [employer]2022-07-17 23:55:00 Test Item Value Reference Range Interpretation Comments BNP (test code = BNP) 1994 [facility] [employer] [id number] 23:55:00 Test Item Value Reference Range Interpretation Comments Procalcitonin Lvl (test 0.80 See_Comment [Au tomated message] code = Procalcitonin Lvl) Th e system which generated this result transmitted ref erence range: <=0.10. The reference range was not used to interpr et this result as normal/abnormal . [facility] [employer]2022-07-17 23:55:00 Test Item Value Reference Range Interpretation Comments BNP (test code = BNP) 1994 [facility] [employer] [id number] 23:55:00 Test Item Value Reference Range Interpretation Comments Procalcitonin Lvl (test 0.80 See_Comment [Au tomated message] code = Procalcitonin Lvl) Th e system which generated this result transmitted ref erence range: <=0.10. The reference range was not used to interpr et this result as normal/abnormal . [facility] HospitalTraceWorks2022-07-17 23:55:00 Test Item Value Reference Range Interpretation Comments BNP (test code = BNP) 1994 [facility] [employer] [id number] 23:55:00 Test Item Value Reference Range Interpretation Comments Procalcitonin Lvl (test 0.80 See_Comment [Au tomated message] code = Procalcitonin Lvl) Th e system which generated this result transmitted ref erence range: <=0.10. The reference range was not used to interpr et this result as normal/abnormal . [facility] [employer]2022-07-17 23:55:00 Test Item Value Reference Range Interpretation Comments BNP (test code = BNP) 1994 [facility] [employer] [id number] 23:55:00 Test Item Value Reference Range Interpretation Comments Procalcitonin Lvl (test 0.80 See_Comment [Au tomated message] code = Procalcitonin Lvl) Th e system which generated this result transmitted ref erence range: <=0.10. The reference range was not used to interpr et this result as normal/abnormal . [facility] [employer]2022-07-17 23:55:00 Test Item Value Reference Range Interpretation Comments BNP (test code = BNP) 1994 [facility] [employer] [id number] 23:55:00 Test Item Value Reference Range Interpretation Comments Procalcitonin Lvl (test 0.80 See_Comment [Au tomated message] code = Procalcitonin Lvl) Th e system which generated this result transmitted ref erence range: <=0.10. The reference range was not used to interpr et this result as normal/abnormal . [facility] HermannCARDIAC [id number] 21:26:00 Test Item Value Reference Range Interpretation Comments HS Troponin I 1 Hr (test code = HS 389 Troponin I 1 Hr) [facility] HermannCARDIAC [id number] 21:26:00 Test Item Value Reference Range Interpretation Comments HS Troponin I 0 to 1 Hour Delta (test 49 1 code = HS Troponin I 0 to 1 Hour Delta) [facility] HermannCARDIAC [id number] 21:26:00 Test Item Value Reference Range Interpretation Comments HS Troponin I 1 Hr (test code = HS 389 Troponin I 1 Hr) [facility] [id number] 21:26:00 Test Item Value Reference Range Interpretation Comments HS Troponin I 0 to 1 Hour Delta (test 49 1 code = HS Troponin I 0 to 1 Hour Delta) [facility]ann[facility] [id number] 21:26:00 Test Item Value Reference Range Interpretation Comments HS Troponin I 1 Hr (test code = HS 389 Troponin I 1 Hr) [facility] HermannCARDIAC [id number] 21:26:00 Test Item Value Reference Range Interpretation Comments HS Troponin I 0 to 1 Hour Delta (test 49 1 code = HS Troponin I 0 to 1 Hour Delta) [facility] [id number] 21:26:00 Test Item Value Reference Range Interpretation Comments HS Troponin I 1 Hr (test code = HS 389 Troponin I 1 Hr) [facility] [id number] 21:26:00 Test Item Value Reference Range Interpretation Comments HS Troponin I 0 to 1 Hour Delta (test 49 1 code = HS Troponin I 0 to 1 Hour Delta) [facility] HermannCARDIAC [id number] 21:26:00 Test Item Value Reference Range Interpretation Comments HS Troponin I 1 Hr (test code = HS 389 Troponin I 1 Hr) [facility] HermannCARDIAC [id number] 21:26:00 Test Item Value Reference Range Interpretation Comments HS Troponin I 0 to 1 Hour Delta (test 49 1 code = HS Troponin I 0 to 1 Hour Delta) [facility] [id number] 21:26:00 Test Item Value Reference Range Interpretation Comments HS Troponin I 1 Hr (test code = HS 389 Troponin I 1 Hr) [facility] StyleSaintannCARDIAC [id number] 21:26:00 Test Item Value Reference Range Interpretation Comments HS Troponin I 0 to 1 Hour Delta (test 49 1 code = HS Troponin I 0 to 1 Hour Delta) [facility] [id number] 21:26:00 Test Item Value Reference Range Interpretation Comments HS Troponin I 1 Hr (test code = HS 389 Troponin I 1 Hr) [facility] [id number] 21:26:00 Test Item Value Reference Range Interpretation Comments HS Troponin I 0 to 1 Hour Delta (test 49 1 code = HS Troponin I 0 to 1 Hour Delta) [facility] StyleSaintannCARDIAC [id number] 21:26:00 Test Item Value Reference Range Interpretation Comments HS Troponin I 1 Hr (test code = HS 389 Troponin I 1 Hr) [facility] [id number] 21:26:00 Test Item Value Reference Range Interpretation Comments HS Troponin I 0 to 1 Hour Delta (test 49 1 code = HS Troponin I 0 to 1 Hour Delta) [facility] [id number] 21:26:00 Test Item Value Reference Range Interpretation Comments HS Troponin I 1 Hr (test code = HS 389 Troponin I 1 Hr) [facility] [id number] 21:26:00 Test Item Value Reference Range Interpretation Comments HS Troponin I 0 to 1 Hour Delta (test 49 1 code = HS Troponin I 0 to 1 Hour Delta) [facility] [id number] 21:26:00 Test Item Value Reference Range Interpretation Comments HS Troponin I 1 Hr (test code = HS 389 Troponin I 1 Hr) [facility] [id number] 21:26:00 Test Item Value Reference Range Interpretation Comments HS Troponin I 0 to 1 Hour Delta (test 49 1 code = HS Troponin I 0 to 1 Hour Delta) [facility] [id number] 20:10:00 Test Item Value Reference Range Interpretation Comments HS Troponin I Baseline (test code = HS 340 Troponin I Baseline) [facility] HospitalViolet [id number] 20:10:00 Test Item Value Reference Range Interpretation Comments Glucose Lvl (test code = Glucose Lvl) 60 70-99 [place] 074992-07-17 20:10:00 Test Item Value Reference Range Interpretation Comments BUN (test code = BUN) 35 7-22 [place] 074992-07-17 20:10:00 Test Item Value Reference Range Interpretation Comments Creatinine Lvl (test code = Creatinine 6.10 0.50-1.40 Lvl) [place] 074992-07-17 20:10:00 Test Item Value Reference Range Interpretation Comments Sodium Lvl (test code = Sodium Lvl) 139 135-145 [place] 074992-07-17 20:10:00 Test Item Value Reference Range Interpretation Comments Potassium Lvl (test code = Potassium 3.1 3.5-5.1 Lvl) [place] 074992-07-17 20:10:00 Test Item Value Reference Range Interpretation Comments Chloride Lvl (test code = Chloride Lvl) 105 95-109 [place] 074992-07-17 20:10:00 Test Item Value Reference Range Interpretation Comments CO2 (test code = CO2) 28 24-32 [place] 074992-07-17 20:10:00 Test Item Value Reference Range Interpretation Comments Calcium Lvl (test code = Calcium Lvl) 8.1 8.5-10.5 [place] 074992-07-17 20:10:00 Test Item Value Reference Range Interpretation Comments Total Protein (test code = Total 5.8 6.4-8.4 Protein) [place] 074992-07-17 20:10:00 Test Item Value Reference Range Interpretation Comments Albumin Lvl (test code = Albumin Lvl) 2.6 3.5-5.0 [place] 074992-07-17 20:10:00 Test Item Value Reference Range Interpretation Comments ALT (test code = ALT) 74 See_Comment [Auto mated message] The system which ge nerated this result transmit swathi reference range : <=65. The reference range was not used to interpr et this result as deny l/abnormal. [place] 074992-07-17 20:10:00 Test Item Value Reference Range Interpretation Comments AST (test code = AST) 117 See_Comment [Auto mated message] The system which ge nerated this result transmit swathi reference range : <=37. The reference range was not used to interpr et this result as deny l/abnormal. [place] 074992-07-17 20:10:00 Test Item Value Reference Range Interpretation Comments Alk Phos (test code = Alk Phos) 241 39-136 [place] 074992-07-17 20:10:00 Test Item Value Reference Range Interpretation Comments Bili Total (test code = Bili Total) 0.8 0.2-1.3 [place] 074992-07-17 20:10:00 Test Item Value Reference Range Interpretation Comments AGAP (test code = AGAP) 9.1 10.0-20.0 [facility] HospitalBueno IncDEVIN VILLE [id number] 20:10:00 Test Item Value Reference Range Interpretation Comments B/C Ratio (test code = B/C Ratio) 6 1 6-25 [place] [address]-07-17 20:10:00 Test Item Value Reference Range Interpretation Comments Globulin (test code = Globulin) 3.2 2.7-4.2 [place] 074992-07-17 20:10:00 Test Item Value Reference Range Interpretation Comments A/G Ratio (test code = A/G Ratio) 0.8 1 0.7-1.6 [place] 074992-07-17 20:10:00 Test Item Value Reference Range Interpretation Comments eGFR (test code = eGFR) 9 [place] 152042-07-17 20:10:00 Test Item Value Reference Range Interpretation Comments WBC (test code = WBC) 4.3 3.7-10.4 [place] 152042-07-17 20:10:00 Test Item Value Reference Range Interpretation Comments RBC (test code = RBC) 2.17 4.70-6.10 [place] [address]-07-17 20:10:00 Test Item Value Reference Range Interpretation Comments Hgb (test code = Hgb) 7.7 14.0-18.0 [place] [address]-07-17 20:10:00 Test Item Value Reference Range Interpretation Comments Hct (test code = Hct) 22.9 42.0-54.0 [place] 152042-07-17 20:10:00 Test Item Value Reference Range Interpretation Comments MCV (test code = MCV) 105.9 80.0-94.0 [facility]UdhwrlxXFGNYUQMRL5834-81-24 20:10:00 Test Item Value Reference Range Interpretation Comments MCH (test code = MCH) 35.4 pg 27.0-31.0 [facility] Hos[id number] 20:10:00 Test Item Value Reference Range Interpretation Comments MCHC (test code = MCHC) 33.4 32.0-36.0 [facility] HospitalDmrvmmqTWGIXENVWK5086-92-55 20:10:00 Test Item Value Reference Range Interpretation Comments RDW (test code = RDW) 23.6 11.5-14.5 [facility] HospitalUljhawoMCHPWPNZNL7018-48-42 20:10:00 Test Item Value Reference Range Interpretation Comments Platelet (test code = Platelet) 146 133-450 [facility] HospitalNkxuulmRNARZZYZTB2917-52-93 20:10:00 Test Item Value Reference Range Interpretation Comments MPV (test code = MPV) 8.0 7.4-10.4 [facility] HospitalYtfaodpMIJFLZDEPY8616-95-51 20:10:00 Test Item Value Reference Range Interpretation Comments Plt Morph (test code = Normal (12/14/21 3:10 Plt Morph) PM) [facility] HospitalZfvsxayWJVCPKPCNQ4925-22-87 20:10:00 Test Item Value Reference Range Interpretation Comments Segs (test code = Segs) 67.4 45.0-75.0 [facility] HospitalVzmrvgjFEJLHINIFC7964-09-75 20:10:00 Test Item Value Reference Range Interpretation Comments Lymphocytes (test code = Lymphocytes) 12.8 20.0-40.0 [facility] HospitalPuivxdcJQJSNVHDIH8597-11-79 20:10:00 Test Item Value Reference Range Interpretation Comments Monocytes (test code = Monocytes) 15.1 2.0-12.0 [place] 152042-07-17 20:10:00 Test Item Value Reference Range Interpretation Comments Eosinophils (test code = 4.1 See_Comment [A utomated message] The Eosinophils) system which ge nerated this result tra nsmitted reference range : <=4.0. The reference r samantha was not used to int erpret this result as normal/abnormal . [facility] HospitalBozqsxiYHWAORAPGN4371-70-64 20:10:00 Test Item Value Reference Range Interpretation Comments Basophils (test code = 0.6 See_Comment [Aut omated message] The Basophils) system which ge nerated this result tra nsmitted reference range : <=1.0. The reference r samantha was not used to int erpret this result as normal/abnormal . [facility] HospitalOrirzfcUIIFHQJYBY0716-45-67 20:10:00 Test Item Value Reference Range Interpretation Comments Neutrophils # (test code = Neutrophils 2.9 1.5-8.1 #) [facility] HospitalCmhhbsaSIDQUDWZFN8173-57-29 20:10:00 Test Item Value Reference Range Interpretation Comments Lymphocytes # (test code = Lymphocytes 0.5 1.0-5.5 #) [facility] HospitalEepcjgtQVLSESIOKZ2923-88-67 20:10:00 Test Item Value Reference Range Interpretation Comments Monocytes # (test code 0.6 See_Comment [Aut omated message] The = Monocytes #) system which generated this result tra nsmitted reference range : <=0.8. The reference r samantha was not used to int erpret this result as normal/abnormal . [facility] HospitalBigoienWDBSRTFLBP6820-33-01 20:10:00 Test Item Value Reference Range Interpretation Comments Eosinophils # (test code 0.2 See_Comment [A utomated message] The = Eosinophils #) system whic h generated this result tra nsmitted reference range : <=0.5. The reference r samantha was not used to int erpret this result as normal/abnormal . [facility] HospitalCpacqqvFWEKYDVDRF5318-22-03 20:10:00 Test Item Value Reference Range Interpretation Comments Anisocyte (test code = 1+ *ABN*(12/14/21 Anisocyte) 3:10 PM) [facility] HospitalSwujasvBPRISRPTZD7169-97-69 20:10:00 Test Item Value Reference Range Interpretation Comments Macrocyte (test code = 1+ *ABN*(12/14/21 Macrocyte) 3:10 PM) [facility] HospitalYechxopZCKFSMOVKA1718-23-70 20:10:00 Test Item Value Reference Range Interpretation Comments Coronavirus (COVID-19) Detected MANUEL (test code = 4*ABN*(12/14/21 3:10 Coronavirus (COVID-19) PM) MANUEL) [facility] HospitalCARDIAC [id number] 20:10:00 Test Item Value Reference Range Interpretation Comments HS Troponin I Baseline (test code = HS 340 Troponin I Baseline) [facility] HospitalCHEM [id number] 20:10:00 Test Item Value Reference Range Interpretation Comments Glucose Lvl (test code = Glucose Lvl) 60 70-99 [place] 074992-07-17 20:10:00 Test Item Value Reference Range Interpretation Comments BUN (test code = BUN) 35 7-22 [place] 074992-07-17 20:10:00 Test Item Value Reference Range Interpretation Comments Creatinine Lvl (test code = Creatinine 6.10 0.50-1.40 Lvl) [place] 074992-07-17 20:10:00 Test Item Value Reference Range Interpretation Comments Sodium Lvl (test code = Sodium Lvl) 139 135-145 [place] 074992-07-17 20:10:00 Test Item Value Reference Range Interpretation Comments Potassium Lvl (test code = Potassium 3.1 3.5-5.1 Lvl) [place] 074992-07-17 20:10:00 Test Item Value Reference Range Interpretation Comments Chloride Lvl (test code = Chloride Lvl) 105 95-109 [place] 074992-07-17 20:10:00 Test Item Value Reference Range Interpretation Comments CO2 (test code = CO2) 28 24-32 [place] 074992-07-17 20:10:00 Test Item Value Reference Range Interpretation Comments Calcium Lvl (test code = Calcium Lvl) 8.1 8.5-10.5 [place] 074992-07-17 20:10:00 Test Item Value Reference Range Interpretation Comments Total Protein (test code = Total 5.8 6.4-8.4 Protein) [place] 074992-07-17 20:10:00 Test Item Value Reference Range Interpretation Comments Albumin Lvl (test code = Albumin Lvl) 2.6 3.5-5.0 [place] 074992-07-17 20:10:00 Test Item Value Reference Range Interpretation Comments ALT (test code = ALT) 74 See_Comment [Auto mated message] The system which ge nerated this result transmit swathi reference range : <=65. The reference range was not used to interpr et this result as deny l/abnormal. [place] 074992-07-17 20:10:00 Test Item Value Reference Range Interpretation Comments AST (test code = AST) 117 See_Comment [Auto mated message] The system which ge nerated this result transmit swathi reference range : <=37. The reference range was not used to interpr et this result as deny l/abnormal. [place] 074992-07-17 20:10:00 Test Item Value Reference Range Interpretation Comments Alk Phos (test code = Alk Phos) 241 39-136 [place] 074992-07-17 20:10:00 Test Item Value Reference Range Interpretation Comments Bili Total (test code = Bili Total) 0.8 0.2-1.3 [place] 074992-07-17 20:10:00 Test Item Value Reference Range Interpretation Comments AGAP (test code = AGAP) 9.1 10.0-20.0 [place] 074992-07-17 20:10:00 Test Item Value Reference Range Interpretation Comments B/C Ratio (test code = B/C Ratio) 6 1 6-25 [place] 074992-07-17 20:10:00 Test Item Value Reference Range Interpretation Comments Globulin (test code = Globulin) 3.2 2.7-4.2 [place] 074992-07-17 20:10:00 Test Item Value Reference Range Interpretation Comments A/G Ratio (test code = A/G Ratio) 0.8 1 0.7-1.6 [place] 074992-07-17 20:10:00 Test Item Value Reference Range Interpretation Comments eGFR (test code = eGFR) 9 [facility] HospitalXviuxhkAKLKQSWFED1276-13-54 20:10:00 Test Item Value Reference Range Interpretation Comments WBC (test code = WBC) 4.3 3.7-10.4 [place] 152042-07-17 20:10:00 Test Item Value Reference Range Interpretation Comments RBC (test code = RBC) 2.17 4.70-6.10 [place] 152042-07-17 20:10:00 Test Item Value Reference Range Interpretation Comments Hgb (test code = Hgb) 7.7 14.0-18.0 [place] [address]-07-17 20:10:00 Test Item Value Reference Range Interpretation Comments Hct (test code = Hct) 22.9 42.0-54.0 [place] 152042-07-17 20:10:00 Test Item Value Reference Range Interpretation Comments MCV (test code = MCV) 105.9 80.0-94.0 [place] 152042-07-17 20:10:00 Test Item Value Reference Range Interpretation Comments MCH (test code = MCH) 35.4 pg 27.0-31.0 [place] 152042-07-17 20:10:00 Test Item Value Reference Range Interpretation Comments MCHC (test code = MCHC) 33.4 32.0-36.0 [place] 152042-07-17 20:10:00 Test Item Value Reference Range Interpretation Comments RDW (test code = RDW) 23.6 11.5-14.5 [place] 152042-07-17 20:10:00 Test Item Value Reference Range Interpretation Comments Platelet (test code = Platelet) 146 133-450 [facility]owhICGNBUVYRY3540-[facility] 20:10:00 Test Item Value Reference Range Interpretation Comments MPV (test code = MPV) 8.0 7.4-10.4 [place] 152042-07-17 20:10:00 Test Item Value Reference Range Interpretation Comments Plt Morph (test code = Normal (12/14/21 3:10 Plt Morph) PM) [facility] HospitalVivqsliMRJSNDVOHZ5586-41-50 20:10:00 Test Item Value Reference Range Interpretation Comments Segs (test code = Segs) 67.4 45.0-75.0 [place] 152042-07-17 20:10:00 Test Item Value Reference Range Interpretation Comments Lymphocytes (test code = Lymphocytes) 12.8 20.0-40.0 [place] 152042-07-17 20:10:00 Test Item Value Reference Range Interpretation Comments Monocytes (test code = Monocytes) 15.1 2.0-12.0 [place] 152042-07-17 20:10:00 Test Item Value Reference Range Interpretation Comments Eosinophils (test code = 4.1 See_Comment [A utomated message] The Eosinophils) system which ge nerated this result tra nsmitted reference range : <=4.0. The reference r samantha was not used to int erpret this result as normal/abnormal . [facility] HospitalUxlwuboIZUKRQOZUX8931-27-11 20:10:00 Test Item Value Reference Range Interpretation Comments Basophils (test code = 0.6 See_Comment [Aut omated message] The Basophils) system which ge nerated this result tra nsmitted reference range : <=1.0. The reference r samantha was not used to int erpret this result as normal/abnormal . [facility] HospitalLtgbvthAYIZGXWGYQ8757-02-25 20:10:00 Test Item Value Reference Range Interpretation Comments Neutrophils # (test code = Neutrophils 2.9 1.5-8.1 #) [facility] HospitalXirdivnZMAWXFSOCV9389-60-35 20:10:00 Test Item Value Reference Range Interpretation Comments Lymphocytes # (test code = Lymphocytes 0.5 1.0-5.5 #) [facility] HospitalZxpqychSDMUYOPJVZ1347-58-02 20:10:00 Test Item Value Reference Range Interpretation Comments Monocytes # (test code 0.6 See_Comment [Aut omated message] The = Monocytes #) system which generated this result tra nsmitted reference range : <=0.8. The reference r samantha was not used to int erpret this result as normal/abnormal . [facility] HospitalDahqzuqHENTTOSZBT9801-40-97 20:10:00 Test Item Value Reference Range Interpretation Comments Eosinophils # (test code 0.2 See_Comment [A utomated message] The = Eosinophils #) system whic h generated this result tra nsmitted reference range : <=0.5. The reference r samantha was not used to int erpret this result as normal/abnormal . [facility] HospitalRxnjlrqJPHEEYRZMP1411-61-90 20:10:00 Test Item Value Reference Range Interpretation Comments Anisocyte (test code = 1+ *ABN*(12/14/21 Anisocyte) 3:10 PM) [facility] HospitalFbrmcuyNSOWQYIGEF1822-41-49 20:10:00 Test Item Value Reference Range Interpretation Comments Macrocyte (test code = 1+ *ABN*(12/14/21 Macrocyte) 3:10 PM) [facility] HospitalUgizxeePXQRUWWVPU7836-16-03 20:10:00 Test Item Value Reference Range Interpretation Comments Coronavirus (COVID-19) Detected MANUEL (test code = 4*ABN*(12/14/21 3:10 Coronavirus (COVID-19) PM) MANUEL) [facility] HospitalCARDIAC XKELDWO2403-19-33 20:10:00 Test Item Value Reference Range Interpretation Comments HS Troponin I Baseline (test code = HS 340 Troponin I Baseline) [place] 074992-07-17 20:10:00 Test Item Value Reference Range Interpretation Comments Glucose Lvl (test code = Glucose Lvl) 60 70-99 [place] 074992-07-17 20:10:00 Test Item Value Reference Range Interpretation Comments BUN (test code = BUN) 35 7-22 [place] 074992-07-17 20:10:00 Test Item Value Reference Range Interpretation Comments Creatinine Lvl (test code = Creatinine 6.10 0.50-1.40 Lvl) [place] 074992-07-17 20:10:00 Test Item Value Reference Range Interpretation Comments Sodium Lvl (test code = Sodium Lvl) 139 135-145 [place] 074992-07-17 20:10:00 Test Item Value Reference Range Interpretation Comments Potassium Lvl (test code = Potassium 3.1 3.5-5.1 Lvl) [place] 074992-07-17 20:10:00 Test Item Value Reference Range Interpretation Comments Chloride Lvl (test code = Chloride Lvl) 105 95-109 [place] 074992-07-17 20:10:00 Test Item Value Reference Range Interpretation Comments CO2 (test code = CO2) 28 24-32 [place] 074992-07-17 20:10:00 Test Item Value Reference Range Interpretation Comments Calcium Lvl (test code = Calcium Lvl) 8.1 8.5-10.5 [place] 074992-07-17 20:10:00 Test Item Value Reference Range Interpretation Comments Total Protein (test code = Total 5.8 6.4-8.4 Protein) [place] 074992-07-17 20:10:00 Test Item Value Reference Range Interpretation Comments Albumin Lvl (test code = Albumin Lvl) 2.6 3.5-5.0 [place] 074992-07-17 20:10:00 Test Item Value Reference Range Interpretation Comments ALT (test code = ALT) 74 See_Comment [Auto mated message] The system which ge nerated this result transmit sawthi reference range : <=65. The reference range was not used to interpr et this result as deny l/abnormal. [place] 074992-07-17 20:10:00 Test Item Value Reference Range Interpretation Comments AST (test code = AST) 117 See_Comment [Auto mated message] The system which ge nerated this result transmit swathi reference range : <=37. The reference range was not used to interpr et this result as deny l/abnormal. [facility]2022-07-17 20:10:00 Test Item Value Reference Range Interpretation Comments Alk Phos (test code = Alk Phos) 241 39-136 [facility]2022-07-17 20:10:00 Test Item Value Reference Range Interpretation Comments Bili Total (test code = Bili Total) 0.8 0.2-1.3 [place] 074992-07-17 20:10:00 Test Item Value Reference Range Interpretation Comments AGAP (test code = AGAP) 9.1 10.0-20.0 [place] 074992-07-17 20:10:00 Test Item Value Reference Range Interpretation Comments B/C Ratio (test code = B/C Ratio) 6 1 6-25 [place] 074992-07-17 20:10:00 Test Item Value Reference Range Interpretation Comments Globulin (test code = Globulin) 3.2 2.7-4.2 [facility]2022-07-17 20:10:00 Test Item Value Reference Range Interpretation Comments A/G Ratio (test code = A/G Ratio) 0.8 1 0.7-1.6 [facility]2022-07-17 20:10:00 Test Item Value Reference Range Interpretation Comments eGFR (test code = eGFR) 9 [facility] HospitalVzbbpbnFKMILUOJVJ6997-23-42 20:10:00 Test Item Value Reference Range Interpretation Comments WBC (test code = WBC) 4.3 3.7-10.4 [place] 152042-07-17 20:10:00 Test Item Value Reference Range Interpretation Comments RBC (test code = RBC) 2.17 4.70-6.10 [place] 152042-07-17 20:10:00 Test Item Value Reference Range Interpretation Comments Hgb (test code = Hgb) 7.7 14.0-18.0 [place] 152042-07-17 20:10:00 Test Item Value Reference Range Interpretation Comments Hct (test code = Hct) 22.9 42.0-54.0 [place] 152042-07-17 20:10:00 Test Item Value Reference Range Interpretation Comments MCV (test code = MCV) 105.9 80.0-94.0 [facility] HospitalYabyymnRFBSNOABXU5873-90-66 20:10:00 Test Item Value Reference Range Interpretation Comments MCH (test code = MCH) 35.4 pg 27.0-31.0 [facility] HospitalZbriyfcDADXACOWSP2316-98-62 20:10:00 Test Item Value Reference Range Interpretation Comments MCHC (test code = MCHC) 33.4 32.0-36.0 [facility] HospitalGfrdodbFLXMUEINQF5492-12-27 20:10:00 Test Item Value Reference Range Interpretation Comments RDW (test code = RDW) 23.6 11.5-14.5 [facility] HospitalAdzknvnUYSTTJCZUA3630-82-45 20:10:00 Test Item Value Reference Range Interpretation Comments Platelet (test code = Platelet) 146 133-450 [facility] HospitalXrbkumqPZAIIUGQZJ0145-07-09 20:10:00 Test Item Value Reference Range Interpretation Comments MPV (test code = MPV) 8.0 7.4-10.4 [facility] HospitalYffrvnvIIFIGFRYVX0030-34-15 20:10:00 Test Item Value Reference Range Interpretation Comments Plt Morph (test code = Normal (12/14/21 3:10 Plt Morph) PM) [facility] HospitalElxnvjhWIGTMWRSKV1331-82-45 20:10:00 Test Item Value Reference Range Interpretation Comments Segs (test code = Segs) 67.4 45.0-75.0 [facility] HospitalGueetjtPXZVVLSXIN6011-98-42 20:10:00 Test Item Value Reference Range Interpretation Comments Lymphocytes (test code = Lymphocytes) 12.8 20.0-40.0 [facility] HospitalDpnhtutYOCEYVWSQX8729-58-25 20:10:00 Test Item Value Reference Range Interpretation Comments Monocytes (test code = Monocytes) 15.1 2.0-12.0 [facility] HospitalClgauhoQHTZBFXLRN8709-19-59 20:10:00 Test Item Value Reference Range Interpretation Comments Eosinophils (test code = 4.1 See_Comment [A utomated message] The Eosinophils) system which ge nerated this result tra nsmitted reference range : <=4.0. The reference r samantha was not used to int erpret this result as normal/abnormal . [facility] HospitalNtpcvhtMPJIIQNDDK9758-18-61 20:10:00 Test Item Value Reference Range Interpretation Comments Basophils (test code = 0.6 See_Comment [Aut omated message] The Basophils) system which ge nerated this result tra nsmitted reference range : <=1.0. The reference r samantha was not used to int erpret this result as normal/abnormal . [facility] HospitalAgotiazCINNTJXVVZ6110-46-00 20:10:00 Test Item Value Reference Range Interpretation Comments Neutrophils # (test code = Neutrophils 2.9 1.5-8.1 #) [facility] HospitalUdgkbndSPGGAGDSWZ6139-44-23 20:10:00 Test Item Value Reference Range Interpretation Comments Lymphocytes # (test code = Lymphocytes 0.5 1.0-5.5 #) [facility] HospitalVaanlgvAWHQJKRXCN9480-84-45 20:10:00 Test Item Value Reference Range Interpretation Comments Monocytes # (test code 0.6 See_Comment [Aut omated message] The = Monocytes #) system which generated this result tra nsmitted reference range : <=0.8. The reference r samantha was not used to int erpret this result as normal/abnormal . [facility] HospitalChzeozzAXIJYABILC6182-14-05 20:10:00 Test Item Value Reference Range Interpretation Comments Eosinophils # (test code 0.2 See_Comment [A utomated message] The = Eosinophils #) system whic h generated this result tra nsmitted reference range : <=0.5. The reference r samantha was not used to int erpret this result as normal/abnormal . [facility] HospitalKgbpuxnLFALNZJFHJ7170-64-47 20:10:00 Test Item Value Reference Range Interpretation Comments Anisocyte (test code = 1+ *ABN*(12/14/21 Anisocyte) 3:10 PM[facility] 20:10:00 Test Item Value Reference Range Interpretation Comments Macrocyte (test code = 1+ *ABN*(12/14/21 Macrocyte) 3:10 PM) [facility] HospitalHqjhdfpZLAAEXOORB0323-54-36 20:10:00 Test Item Value Reference Range Interpretation Comments Coronavirus (COVID-19) Detected MANUEL (test code = 4*ABN*(12/14/21 3:10 Coronavirus (COVID-19) PM) MANUEL) [facility] HospitalCARDIAC [id number] 20:10:00 Test Item Value Reference Range Interpretation Comments HS Troponin I Baseline (test code = HS 340 Troponin I Baseline) [place] 074992-07-17 20:10:00 Test Item Value Reference Range Interpretation Comments Glucose Lvl (test code = Glucose Lvl) 60 70-99 [place] 074992-07-17 20:10:00 Test Item Value Reference Range Interpretation Comments BUN (test code = BUN) 35 7-22 [place] 074992-07-17 20:10:00 Test Item Value Reference Range Interpretation Comments Creatinine Lvl (test code = Creatinine 6.10 0.50-1.40 Lvl) [place] 074992-07-17 20:10:00 Test Item Value Reference Range Interpretation Comments Sodium Lvl (test code = Sodium Lvl) 139 135-145 [place] 074992-07-17 20:10:00 Test Item Value Reference Range Interpretation Comments Potassium Lvl (test code = Potassium 3.1 3.5-5.1 Lvl) [place] 074992-07-17 20:10:00 Test Item Value Reference Range Interpretation Comments Chloride Lvl (test code = Chloride Lvl) 105 95-109 [place] 074992-07-17 20:10:00 Test Item Value Reference Range Interpretation Comments CO2 (test code = CO2) 28 24-32 [place] 074992-07-17 20:10:00 Test Item Value Reference Range Interpretation Comments Calcium Lvl (test code = Calcium Lvl) 8.1 8.5-10.5 [place] 074992-07-17 20:10:00 Test Item Value Reference Range Interpretation Comments Total Protein (test code = Total 5.8 6.4-8.4 Protein) [place] 074992-07-17 20:10:00 Test Item Value Reference Range Interpretation Comments Albumin Lvl (test code = Albumin Lvl) 2.6 3.5-5.0 [place] 074992-07-17 20:10:00 Test Item Value Reference Range Interpretation Comments ALT (test code = ALT) 74 See_Comment [Auto mated message] The system which ge nerated this result transmit swathi reference range : <=65. The reference range was not used to interpr et this result as deny l/abnormal. [place] 074992-07-17 20:10:00 Test Item Value Reference Range Interpretation Comments AST (test code = AST) 117 See_Comment [Auto mated message] The system which ge nerated this result transmit swathi reference range : <=37. The reference range was not used to interpr et this result as deny l/abnormal. [facility] HospitalEquals6 [id number] 20:10:00 Test Item Value Reference Range Interpretation Comments Alk Phos (test code = Alk Phos) 241 39-136 [facility]2022-07-17 20:10:00 Test Item Value Reference Range Interpretation Comments Bili Total (test code = Bili Total) 0.8 0.2-1.3 [facility] HospitalCARDIAC [id number] 20:10:00 Test Item Value Reference Range Interpretation Comments HS Troponin I Baseline (test code = HS 340 Troponin I Baseline) [facility]2022-07-17 20:10:00 Test Item Value Reference Range Interpretation Comments Glucose Lvl (test code = Glucose Lvl) 60 70-99 [facility]Equals[facility] [id number] 20:10:00 Test Item Value Reference Range Interpretation Comments BUN (test code = BUN) 35 7-22 [facility]2022-07-17 20:10:00 Test Item Value Reference Range Interpretation Comments Creatinine Lvl (test code = Creatinine 6.10 0.50-1.40 Lvl) [facility] [id number] 20:10:00 Test Item Value Reference Range Interpretation Comments Sodium Lvl (test code = Sodium Lvl) 139 135-145 [facility] [id number] 20:10:00 Test Item Value Reference Range Interpretation Comments Potassium Lvl (test code = Potassium 3.1 3.5-5.1 Lvl) [facility] [id number] 20:10:00 Test Item Value Reference Range Interpretation Comments AGAP (test code = AGAP) 9.1 10.0-20.0 [facility] [id number] 20:10:00 Test Item Value Reference Range Interpretation Comments Chloride Lvl (test code = Chloride Lvl) 105 95-109 [facility] [id number] 20:10:00 Test Item Value Reference Range Interpretation Comments CO2 (test code = CO2) 28 24-32 [facility] [id number] 20:10:00 Test Item Value Reference Range Interpretation Comments Calcium Lvl (test code = Calcium Lvl) 8.1 8.5-10.5 [facility] [id number] 20:10:00 Test Item Value Reference Range Interpretation Comments Total Protein (test code = Total 5.8 6.4-8.4 Protein) [facility] [id number] 20:10:00 Test Item Value Reference Range Interpretation Comments Albumin Lvl (test code = Albumin Lvl) 2.6 3.5-5.0 [facility] [id number] 20:10:00 Test Item Value Reference Range Interpretation Comments ALT (test code = ALT) 74 See_Comment [Auto mated message] The system which ge nerated this result transmit swathi reference range : <=65. The reference range was not used to interpr et this result as deny l/abnormal. [facility] [id number] 20:10:00 Test Item Value Reference Range Interpretation Comments AST (test code = AST) 117 See_Comment [Auto mated message] The system which ge nerated this result transmit swathi reference range : <=37. The reference range was not used to interpr et this result as deny l/abnormal. [facility] [id number] 20:10:00 Test Item Value Reference Range Interpretation Comments Alk Phos (test code = Alk Phos) 241 39-136 [facility] [id number] 20:10:00 Test Item Value Reference Range Interpretation Comments Bili Total (test code = Bili Total) 0.8 0.2-1.3 [facility] [id number] 20:10:00 Test Item Value Reference Range Interpretation Comments AGAP (test code = AGAP) 9.1 10.0-20.0 [facility] [id number] 20:10:00 Test Item Value Reference Range Interpretation Comments B/C Ratio (test code = B/C Ratio) 6 1 6-25 [facility] [id number] 20:10:00 Test Item Value Reference Range Interpretation Comments B/C Ratio (test code = B/C Ratio) 6 1 6-25 [facility] [id number] 20:10:00 Test Item Value Reference Range Interpretation Comments Globulin (test code = Globulin) 3.2 2.7-4.2 [facility]2022-07-17 20:10:00 Test Item Value Reference Range Interpretation Comments A/G Ratio (test code = A/G Ratio) 0.8 1 0.7-1.6 [facility]2022-07-17 20:10:00 Test Item Value Reference Range Interpretation Comments eGFR (test code = eGFR) 9 [facility] HospitalIgoddmmLGSISPZUXT1509-92-43 20:10:00 Test Item Value Reference Range Interpretation Comments WBC (test code = WBC) 4.3 3.7-10.4 [facility] HospitalLsgbugsXBWLJKLEUA1433-12-46 20:10:00 Test Item Value Reference Range Interpretation Comments RBC (test code = RBC) 2.17 4.70-6.10 [facility] HospitalGgwglcnEBOMQMXGTL0997-73-01 20:10:00 Test Item Value Reference Range Interpretation Comments Hgb (test code = Hgb) 7.7 14.0-18.0 [place] 152042-07-17 20:10:00 Test Item Value Reference Range Interpretation Comments Hct (test code = Hct) 22.9 42.0-54.0 [facility] HospitalPcgulibIXGHTGSNOD7247-30-64 20:10:00 Test Item Value Reference Range Interpretation Comments MCV (test code = MCV) 105.9 80.0-94.0 [facility] HospitalCavgqafOCMJLDOXBQ3431-19-27 20:10:00 Test Item Value Reference Range Interpretation Comments MCH (test code = MCH) 35.4 pg 27.0-31.0 [facility]2022-07-17 20:10:00 Test Item Value Reference Range Interpretation Comments Globulin (test code = Globulin) 3.2 2.7-4.2 [place] 152042-07-17 20:10:00 Test Item Value Reference Range Interpretation Comments MCHC (test code = MCHC) 33.4 32.0-36.0 [place] 152042-07-17 20:10:00 Test Item Value Reference Range Interpretation Comments RDW (test code = RDW) 23.6 11.5-14.5 [facility] HospitalZkbsuiyHERWVKAKQC5748-99-76 20:10:00 Test Item Value Reference Range Interpretation Comments Platelet (test code = Platelet) 146 133-450 [place] 152042-07-17 20:10:00 Test Item Value Reference Range Interpretation Comments MPV (test code = MPV) 8.0 7.4-10.4 [facility] HospitalHhoawwdUPDGREHECK2727-83-10 20:10:00 Test Item Value Reference Range Interpretation Comments Plt Morph (test code = Normal (12/14/21 3:10 Plt Morph) PM) [facility] HospitalJkqadkkDNZVADFTOQ8031-39-65 20:10:00 Test Item Value Reference Range Interpretation Comments Segs (test code = Segs) 67.4 45.0-75.0 [place] 152042-07-17 20:10:00 Test Item Value Reference Range Interpretation Comments Lymphocytes (test code = Lymphocytes) 12.8 20.0-40.0 [facility] HospitalHewmsvjGKSELSBJJZ8624-11-23 20:10:00 Test Item Value Reference Range Interpretation Comments Monocytes (test code = Monocytes) 15.1 2.0-12.0 [facility] HospitalRvcmbogKGEIGVFYIZ3833-38-13 20:10:00 Test Item Value Reference Range Interpretation Comments Eosinophils (test code = 4.1 See_Comment [A utomated message] The Eosinophils) system which ge nerated this result tra nsmitted reference range : <=4.0. The reference r samantha was not used to int erpret this result as normal/abnormal . [facility] HospitalUqgncxtQFGJTTSQRR5155-57-31 20:10:00 Test Item Value Reference Range Interpretation Comments Basophils (test code = 0.6 See_Comment [Aut omated message] The Basophils) system which ge nerated this result tra nsmitted reference range : <=1.0. The reference r samantha was not used to int erpret this result as normal/abnormal . [facility]2022-07-17 20:10:00 Test Item Value Reference Range Interpretation Comments A/G Ratio (test code = A/G Ratio) 0.8 1 0.7-1.6 [facility] HospitalGirepxqMVZNYZCYRP1841-55-58 20:10:00 Test Item Value Reference Range Interpretation Comments Neutrophils # (test code = Neutrophils 2.9 1.5-8.1 #) [facility] HospitalXhzblgfGJEJIGCAEJ7199-50-91 20:10:00 Test Item Value Reference Range Interpretation Comments Lymphocytes # (test code = Lymphocytes 0.5 1.0-5.5 #) [place]2042-07-17 20:10:00 Test Item Value Reference Range Interpretation Comments Monocytes # (test code 0.6 See_Comment [Aut omated message] The = Monocytes #) system which generated this result tra nsmitted reference range : <=0.8. The reference r samantha was not used to int erpret this result as normal/abnormal . [facility] HospitalXboeltwAILIFWVSPI6834-44-74 20:10:00 Test Item Value Reference Range Interpretation Comments Eosinophils # (test code 0.2 See_Comment [A utomated message] The = Eosinophils #) system whic h generated this result tra nsmitted reference range : <=0.5. The reference r samantha was not used to int erpret this result as normal/abnormal . [facility] HospitalOmednotWFPQSRAEFR1288-73-29 20:10:00 Test Item Value Reference Range Interpretation Comments Anisocyte (test code = 1+ *ABN*(12/14/21 Anisocyte) 3:10 PM) [facility] HospitalJreqlaeMGPZZQUWSY3534-20-46 20:10:00 Test Item Value Reference Range Interpretation Comments Macrocyte (test code = 1+ *ABN*(12/14/21 Macrocyte) 3:10 PM) [facility] HospitalOovyvrfEWPEXHCFEX9923-46-50 20:10:00 Test Item Value Reference Range Interpretation Comments Coronavirus (COVID-19) Detected MANUEL (test code = 4*ABN*(12/14/21 3:10 Coronavirus (COVID-19) PM) MANUEL) [facility] HospitalCHEM [id number] 20:10:00 Test Item Value Reference Range Interpretation Comments eGFR (test code = eGFR) 9 [facility] HospitalFbaybtqYSQNCRHCHQ1886-22-11 20:10:00 Test Item Value Reference Range Interpretation Comments WBC (test code = WBC) 4.3 3.7-10.4 [facility] HospitalCnqivnoVXCINBOQAS9535-72-89 20:10:00 Test Item Value Reference Range Interpretation Comments RBC (test code = RBC) 2.17 4.70-6.10 [facility] HospitalSxrpbdiWMJKKKIXTV4157-88-81 20:10:00 Test Item Value Reference Range Interpretation Comments Hgb (test code = Hgb) 7.7 14.0-18.0 [facility] HospitalNqyzjmfWILPYYXHYO1950-35-55 20:10:00 Test Item Value Reference Range Interpretation Comments Hct (test code = Hct) 22.9 42.0-54.0 [facility] HospitalImlbwsjQGACOOQRNQ1107-14-52 20:10:00 Test Item Value Reference Range Interpretation Comments MCV (test code = MCV) 105.9 80.0-94.0 [facility] HospitalDbrcqbbMVVEZTYZOD9065-41-92 20:10:00 Test Item Value Reference Range Interpretation Comments MCH (test code = MCH) 35.4 pg 27.0-31.0 [facility] HospitalGwckweyAHBSZDBDZV6453-62-81 20:10:00 Test Item Value Reference Range Interpretation Comments MCHC (test code = MCHC) 33.4 32.0-36.0 [facility] HospitalSktcvtdVMGDTWLZRL1375-55-11 20:10:00 Test Item Value Reference Range Interpretation Comments RDW (test code = RDW) 23.6 11.5-14.5 [facility] HospitalNizbpouUOCEJAYZYR9240-39-85 20:10:00 Test Item Value Reference Range Interpretation Comments Platelet (test code = Platelet) 146 133-450 [facility] HospitalXynetjgOFWISNOAYG0779-73-80 20:10:00 Test Item Value Reference Range Interpretation Comments MPV (test code = MPV) 8.0 7.4-10.4 [facility] HospitalRypryxkYQJIAEQNSD6957-74-15 20:10:00 Test Item Value Reference Range Interpretation Comments Plt Morph (test code = Normal (12/14/21 3:10 Plt Morph) PM) [facility] HospitalFojbwclJJABXEIKQB7608-73-55 20:10:00 Test Item Value Reference Range Interpretation Comments Segs (test code = Segs) 67.4 45.0-75.0 [facility] HospitalTjijlutBIASZFEXFG7033-91-54 20:10:00 Test Item Value Reference Range Interpretation Comments Lymphocytes (test code = Lymphocytes) 12.8 20.0-40.0 [place] 152042-07-17 20:10:00 Test Item Value Reference Range Interpretation Comments Monocytes (test code = Monocytes) 15.1 2.0-12.0 [place] 152042-07-17 20:10:00 Test Item Value Reference Range Interpretation Comments Eosinophils (test code = 4.1 See_Comment [A utomated message] The Eosinophils) system which ge nerated this result tra nsmitted reference range : <=4.0. The reference r samantha was not used to int erpret this result as normal/abnormal . [facility] HospitalEbocekmRTWDDLAORC8509-45-90 20:10:00 Test Item Value Reference Range Interpretation Comments Basophils (test code = 0.6 See_Comment [Aut omated message] The Basophils) system which ge nerated this result tra nsmitted reference range : <=1.0. The reference r samantha was not used to int erpret this result as normal/abnormal . [facility] HospitalAvmhiybZAIJBPKWMZ4324-87-83 20:10:00 Test Item Value Reference Range Interpretation Comments Neutrophils # (test code = Neutrophils 2.9 1.5-8.1 #) [facility] HospitalVzwuulaVYUEFXEDDY6971-77-75 20:10:00 Test Item Value Reference Range Interpretation Comments Lymphocytes # (test code = Lymphocytes 0.5 1.0-5.5 #) [facility] HospitalDjsvqarLDMVDBQZVG1131-12-71 20:10:00 Test Item Value Reference Range Interpretation Comments Monocytes # (test code 0.6 See_Comment [Aut omated message] The = Monocytes #) system which generated this result tra nsmitted reference range : <=0.8. The reference r samantha was not used to int erpret this result as normal/abnormal . [facility] HospitalGobwodqGPIVYHQKPR3795-14-90 20:10:00 Test Item Value Reference Range Interpretation Comments Eosinophils # (test code 0.2 See_Comment [A utomated message] The = Eosinophils #) system whic h generated this result tra nsmitted reference range : <=0.5. The reference r samantha was not used to int erpret this result as normal/abnormal . [facility] HospitalTwistinQPLECTRGRQ7829-40-32 20:10:00 Test Item Value Reference Range Interpretation Comments Anisocyte (test code = 1+ *ABN*(12/14/21 Anisocyte) 3:10 PM) [facility] HospitalGxeidqdGRVTELRTEW1871-20-56 20:10:00 Test Item Value Reference Range Interpretation Comments Macrocyte (test code = 1+ *ABN*(12/14/21 Macrocyte) 3:10 PM) [facility] HospitalFkpgbumDVDNFCOTNY3929-59-28 20:10:00 Test Item Value Reference Range Interpretation Comments Coronavirus (COVID-19) Detected MANUEL (test code = 4*ABN*(12/14/21 3:10 Coronavirus (COVID-19) PM) MANUEL) [facility] HospitalCARDIAC CQWKTGZ3516-55-71 20:10:00 Test Item Value Reference Range Interpretation Comments HS Troponin I Baseline (test code = HS 340 Troponin I Baseline) [facility]2022-07-17 20:10:00 Test Item Value Reference Range Interpretation Comments Glucose Lvl (test code = Glucose Lvl) 60 70-99 [facility]2022-07-17 20:10:00 Test Item Value Reference Range Interpretation Comments BUN (test code = BUN) 35 7-22 [facility]2022-07-17 20:10:00 Test Item Value Reference Range Interpretation Comments Creatinine Lvl (test code = Creatinine 6.10 0.50-1.40 Lvl) [facility]2022-07-17 20:10:00 Test Item Value Reference Range Interpretation Comments Sodium Lvl (test code = Sodium Lvl) 139 135-145 [facility]2022-07-17 20:10:00 Test Item Value Reference Range Interpretation Comments Potassium Lvl (test code = Potassium 3.1 3.5-5.1 Lvl) [facility]2022-07-17 20:10:00 Test Item Value Reference Range Interpretation Comments Chloride Lvl (test code = Chloride Lvl) 105 95-109 [facility]2022-07-17 20:10:00 Test Item Value Reference Range Interpretation Comments CO2 (test code = CO2) 28 24-32 [facility]2022-07-17 20:10:00 Test Item Value Reference Range Interpretation Comments Calcium Lvl (test code = Calcium Lvl) 8.1 8.5-10.5 [facility]2022-07-17 20:10:00 Test Item Value Reference Range Interpretation Comments Total Protein (test code = Total 5.8 6.4-8.4 Protein) [facility]2022-07-17 20:10:00 Test Item Value Reference Range Interpretation Comments Albumin Lvl (test code = Albumin Lvl) 2.6 3.5-5.0 [facility]2022-07-17 20:10:00 Test Item Value Reference Range Interpretation Comments ALT (test code = ALT) 74 See_Comment [Auto mated message] The system which ge nerated this result transmit swathi reference range : <=65. The reference range was not used to interpr et this result as deny l/abnormal. [place] 074992-07-17 20:10:00 Test Item Value Reference Range Interpretation Comments AST (test code = AST) 117 See_Comment [Auto mated message] The system which ge nerated this result transmit swathi reference range : <=37. The reference range was not used to interpr et this result as deny l/abnormal. [place] 074992-07-17 20:10:00 Test Item Value Reference Range Interpretation Comments Alk Phos (test code = Alk Phos) 241 39-136 [place] 074992-07-17 20:10:00 Test Item Value Reference Range Interpretation Comments Bili Total (test code = Bili Total) 0.8 0.2-1.3 [place] 074992-07-17 20:10:00 Test Item Value Reference Range Interpretation Comments AGAP (test code = AGAP) 9.1 10.0-20.0 [place] 074992-07-17 20:10:00 Test Item Value Reference Range Interpretation Comments B/C Ratio (test code = B/C Ratio) 6 1 6-25 [place] 074992-07-17 20:10:00 Test Item Value Reference Range Interpretation Comments Globulin (test code = Globulin) 3.2 2.7-4.2 [place] 074992-07-17 20:10:00 Test Item Value Reference Range Interpretation Comments A/G Ratio (test code = A/G Ratio) 0.8 1 0.7-1.6 [place] 074992-07-17 20:10:00 Test Item Value Reference Range Interpretation Comments eGFR (test code = eGFR) 9 [place] 152042-07-17 20:10:00 Test Item Value Reference Range Interpretation Comments WBC (test code = WBC) 4.3 3.7-10.4 [place] 152042-07-17 20:10:00 Test Item Value Reference Range Interpretation Comments RBC (test code = RBC) 2.17 4.70-6.10 [place] 152042-07-17 20:10:00 Test Item Value Reference Range Interpretation Comments Hgb (test code = Hgb) 7.7 14.0-18.0 [place] 152042-07-17 20:10:00 Test Item Value Reference Range Interpretation Comments Hct (test code = Hct) 22.9 42.0-54.0 [place] 152042-07-17 20:10:00 Test Item Value Reference Range Interpretation Comments MCV (test code = MCV) 105.9 80.0-94.0 [place] 152042-07-17 20:10:00 Test Item Value Reference Range Interpretation Comments MCH (test code = MCH) 35.4 pg 27.0-31.0 [place] 152042-07-17 20:10:00 Test Item Value Reference Range Interpretation Comments MCHC (test code = MCHC) 33.4 32.0-36.0 [place] 152042-07-17 20:10:00 Test Item Value Reference Range Interpretation Comments RDW (test code = RDW) 23.6 11.5-14.5 [place] 152042-07-17 20:10:00 Test Item Value Reference Range Interpretation Comments Platelet (test code = Platelet) 146 133-450 [facility] HospitalPfgxdxoJKFRMSGVFV1008-20-40 20:10:00 Test Item Value Reference Range Interpretation Comments MPV (test code = MPV) 8.0 7.4-10.4 [place] 152042-07-17 20:10:00 Test Item Value Reference Range Interpretation Comments Plt Morph (test code = Normal (12/14/21 3:10 Plt Morph) PM) [place] 152042-07-17 20:10:00 Test Item Value Reference Range Interpretation Comments Segs (test code = Segs) 67.4 45.0-75.0 [facility] HospitalPklxmaaREYQOBDHIH3192-18-99 20:10:00 Test Item Value Reference Range Interpretation Comments Lymphocytes (test code = Lymphocytes) 12.8 20.0-40.0 [place] 152042-07-17 20:10:00 Test Item Value Reference Range Interpretation Comments Monocytes (test code = Monocytes) 15.1 2.0-12.0 [place] 152042-07-17 20:10:00 Test Item Value Reference Range Interpretation Comments Eosinophils (test code = 4.1 See_Comment [A utomated message] The Eosinophils) system which ge nerated this result tra nsmitted reference range : <=4.0. The reference r samantha was not used to int erpret this result as normal/abnormal . [facility] HospitalFiapgbaSKFYRICLOR8162-00-88 20:10:00 Test Item Value Reference Range Interpretation Comments Basophils (test code = 0.6 See_Comment [Aut omated message] The Basophils) system which ge nerated this result tra nsmitted reference range : <=1.0. The reference r samantha was not used to int erpret this result as normal/abnormal . [facility] HospitalLykkpbxIAWMAEONZX7309-71-21 20:10:00 Test Item Value Reference Range Interpretation Comments Neutrophils # (test code = Neutrophils 2.9 1.5-8.1 #) [facility] HospitalSarjirfAPRSOIXPXF5944-73-77 20:10:00 Test Item Value Reference Range Interpretation Comments Lymphocytes # (test code = Lymphocytes 0.5 1.0-5.5 #) [facility] HospitalYemohwxARRHBXCSWC8044-60-47 20:10:00 Test Item Value Reference Range Interpretation Comments Monocytes # (test code 0.6 See_Comment [Aut omated message] The = Monocytes #) system which generated this result tra nsmitted reference range : <=0.8. The reference r samantha was not used to int erpret this result as normal/abnormal . [facility] HospitalCqididwVFZWDQBAFH2920-95-75 20:10:00 Test Item Value Reference Range Interpretation Comments Eosinophils # (test code 0.2 See_Comment [A utomated message] The = Eosinophils #) system whic h generated this result tra nsmitted reference range : <=0.5. The reference r samantha was not used to int erpret this result as normal/abnormal . [facility] HospitalKdcqmfmKTUJOCAKIV9507-08-78 20:10:00 Test Item Value Reference Range Interpretation Comments Anisocyte (test code = 1+ *ABN*(12/14/21 Anisocyte) 3:10 PM) [facility] HospitalDiqptgeGEXPEWCMVD9657-03-17 20:10:00 Test Item Value Reference Range Interpretation Comments Macrocyte (test code = 1+ *ABN*(12/14/21 Macrocyte) 3:10 PM) [facility]EuuzfssDQOGAXUOGP4686-84-93 20:10:00 Test Item Value Reference Range Interpretation Comments Coronavirus (COVID-19) Detected MANUEL (test code = 4*ABN*(12/14/21 3:10 Coronavirus (COVID-19) PM) MANUEL) [facility] XWILSKM5005-05-23 20:10:00 Test Item Value Reference Range Interpretation Comments HS Troponin I Baseline (test code = HS 340 Troponin I Baseline) [facility] ZBCBZ3035-20-81 20:10:00 Test Item Value Reference Range Interpretation Comments Glucose Lvl (test code = Glucose Lvl) 60 70-99 [facility] VPRHO5369-50-58 20:10:00 Test Item Value Reference Range Interpretation Comments BUN (test code = BUN) 35 7-22 [facility]2022-07-17 20:10:00 Test Item Value Reference Range Interpretation Comments Creatinine Lvl (test code = Creatinine 6.10 0.50-1.40 Lvl) [facility]2022-07-17 20:10:00 Test Item Value Reference Range Interpretation Comments Sodium Lvl (test code = Sodium Lvl) 139 135-145 [facility]2022-07-17 20:10:00 Test Item Value Reference Range Interpretation Comments Potassium Lvl (test code = Potassium 3.1 3.5-5.1 Lvl) [facility]2022-07-17 20:10:00 Test Item Value Reference Range Interpretation Comments Chloride Lvl (test code = Chloride Lvl) 105 95-109 [facility]2022-07-17 20:10:00 Test Item Value Reference Range Interpretation Comments CO2 (test code = CO2) 28 24-32 [facility]2022-07-17 20:10:00 Test Item Value Reference Range Interpretation Comments Calcium Lvl (test code = Calcium Lvl) 8.1 8.5-10.5 [facility]2022-07-17 20:10:00 Test Item Value Reference Range Interpretation Comments Total Protein (test code = Total 5.8 6.4-8.4 Protein) [facility]2022-07-17 20:10:00 Test Item Value Reference Range Interpretation Comments Albumin Lvl (test code = Albumin Lvl) 2.6 3.5-5.0 [facility]2022-07-17 20:10:00 Test Item Value Reference Range Interpretation Comments ALT (test code = ALT) 74 See_Comment [Auto mated message] The system which ge nerated this result transmit swathi reference range : <=65. The reference range was not used to interpr et this result as deny l/abnormal. [place] 074992-07-17 20:10:00 Test Item Value Reference Range Interpretation Comments AST (test code = AST) 117 See_Comment [Auto mated message] The system which ge nerated this result transmit swathi reference range : <=37. The reference range was not used to interpr et this result as deny l/abnormal. [place] 074992-07-17 20:10:00 Test Item Value Reference Range Interpretation Comments Alk Phos (test code = Alk Phos) 241 39-136 [place] 074992-07-17 20:10:00 Test Item Value Reference Range Interpretation Comments Bili Total (test code = Bili Total) 0.8 0.2-1.3 [place] 074992-07-17 20:10:00 Test Item Value Reference Range Interpretation Comments AGAP (test code = AGAP) 9.1 10.0-20.0 [place] 074992-07-17 20:10:00 Test Item Value Reference Range Interpretation Comments B/C Ratio (test code = B/C Ratio) 6 1 6-25 [place] 074992-07-17 20:10:00 Test Item Value Reference Range Interpretation Comments Globulin (test code = Globulin) 3.2 2.7-4.2 [facility]2022-07-17 20:10:00 Test Item Value Reference Range Interpretation Comments A/G Ratio (test code = A/G Ratio) 0.8 1 0.7-1.6 [place] 074992-07-17 20:10:00 Test Item Value Reference Range Interpretation Comments eGFR (test code = eGFR) 9 [place] 152042-07-17 20:10:00 Test Item Value Reference Range Interpretation Comments WBC (test code = WBC) 4.3 3.7-10.4 [place] 152042-07-17 20:10:00 Test Item Value Reference Range Interpretation Comments RBC (test code = RBC) 2.17 4.70-6.10 [place] 152042-07-17 20:10:00 Test Item Value Reference Range Interpretation Comments Hgb (test code = Hgb) 7.7 14.0-18.0 [place] [address]-07-17 20:10:00 Test Item Value Reference Range Interpretation Comments Hct (test code = Hct) 22.9 42.0-54.0 [place] 152042-07-17 20:10:00 Test Item Value Reference Range Interpretation Comments MCV (test code = MCV) 105.9 80.0-94.0 [place] 152042-07-17 20:10:00 Test Item Value Reference Range Interpretation Comments MCH (test code = MCH) 35.4 pg 27.0-31.0 [facility] HospitalOkolnjbEPLYFAUGGB8543-58-87 20:10:00 Test Item Value Reference Range Interpretation Comments MCHC (test code = MCHC) 33.4 32.0-36.0 [facility] HospitalOfirwycUZPZRQGWNQ0053-52-22 20:10:00 Test Item Value Reference Range Interpretation Comments RDW (test code = RDW) 23.6 11.5-14.5 [place] 152042-07-17 20:10:00 Test Item Value Reference Range Interpretation Comments Platelet (test code = Platelet) 146 133-450 [facility] HospitalWfqjoycFMUZRKCJCI5375-43-39 20:10:00 Test Item Value Reference Range Interpretation Comments MPV (test code = MPV) 8.0 7.4-10.4 [place] 152042-07-17 20:10:00 Test Item Value Reference Range Interpretation Comments Plt Morph (test code = Normal (12/14/21 3:10 Plt Morph) PM) [facility] HospitalMddqmjfGJXTEBNEEB5191-61-98 20:10:00 Test Item Value Reference Range Interpretation Comments Segs (test code = Segs) 67.4 45.0-75.0 [facility] HospitalNykpmjxPPXSCEZNLI1709-32-56 20:10:00 Test Item Value Reference Range Interpretation Comments Lymphocytes (test code = Lymphocytes) 12.8 20.0-40.0 [place] 152042-07-17 20:10:00 Test Item Value Reference Range Interpretation Comments Monocytes (test code = Monocytes) 15.1 2.0-12.0 [place] 152042-07-17 20:10:00 Test Item Value Reference Range Interpretation Comments Eosinophils (test code = 4.1 See_Comment [A utomated message] The Eosinophils) system which ge nerated this result tra nsmitted reference range : <=4.0. The reference r samantha was not used to int erpret this result as normal/abnormal . [facility] HospitalCdpiyeiBWTOCULKUI7332-67-22 20:10:00 Test Item Value Reference Range Interpretation Comments Basophils (test code = 0.6 See_Comment [Aut omated message] The Basophils) system which ge nerated this result tra nsmitted reference range : <=1.0. The reference r samantha was not used to int erpret this result as normal/abnormal . [facility] HospitalGmjkcuaGQSNHVOQGR4399-71-54 20:10:00 Test Item Value Reference Range Interpretation Comments Neutrophils # (test code = Neutrophils 2.9 1.5-8.1 #) [facility] HospitalVwmtjuaIQCVQIWJTC8432-10-57 20:10:00 Test Item Value Reference Range Interpretation Comments Lymphocytes # (test code = Lymphocytes 0.5 1.0-5.5 #) [facility] HospitalXnajkurKLVRXYLJVE7803-25-73 20:10:00 Test Item Value Reference Range Interpretation Comments Monocytes # (test code 0.6 See_Comment [Aut omated message] The = Monocytes #) system which generated this result tra nsmitted reference range : <=0.8. The reference r samantha was not used to int erpret this result as normal/abnormal . [facility] HospitalHarvguwWHJJSTHAJC9336-05-99 20:10:00 Test Item Value Reference Range Interpretation Comments Eosinophils # (test code 0.2 See_Comment [A utomated message] The = Eosinophils #) system whic h generated this result tra nsmitted reference range : <=0.5. The reference r samantha was not used to int erpret this result as normal/abnormal . [facility] HospitalHagdvlsOXJLURQDGY8756-71-44 20:10:00 Test Item Value Reference Range Interpretation Comments Anisocyte (test code = 1+ *ABN*(12/14/21 Anisocyte) 3:10 PM) [facility] HospitalAgybqpeEBEGVFGQTT7912-52-94 20:10:00 Test Item Value Reference Range Interpretation Comments Macrocyte (test code = 1+ *ABN*(12/14/21 Macrocyte) 3:10 PM) [facility]XadfpkjRBCMCLXCLF4802-56-70 20:10:00 Test Item Value Reference Range Interpretation Comments Coronavirus (COVID-19) Detected MANUEL (test code = 4*ABN*(12/14/21 3:10 Coronavirus (COVID-19) PM) MANUEL) [facility] NLBMKKT5681-68-40 20:10:00 Test Item Value Reference Range Interpretation Comments HS Troponin I Baseline (test code = HS 340 Troponin I Baseline) [facility]2022-07-17 20:10:00 Test Item Value Reference Range Interpretation Comments Glucose Lvl (test code = Glucose Lvl) 60 70-99 [facility]2022-07-17 20:10:00 Test Item Value Reference Range Interpretation Comments BUN (test code = BUN) 35 7-22 [facility]2022-07-17 20:10:00 Test Item Value Reference Range Interpretation Comments Creatinine Lvl (test code = Creatinine 6.10 0.50-1.40 Lvl) [facility]2022-07-17 20:10:00 Test Item Value Reference Range Interpretation Comments Sodium Lvl (test code = Sodium Lvl) 139 135-145 [facility]2022-07-17 20:10:00 Test Item Value Reference Range Interpretation Comments Potassium Lvl (test code = Potassium 3.1 3.5-5.1 Lvl) [facility]2022-07-17 20:10:00 Test Item Value Reference Range Interpretation Comments Chloride Lvl (test code = Chloride Lvl) 105 95-109 [facility]2022-07-17 20:10:00 Test Item Value Reference Range Interpretation Comments CO2 (test code = CO2) 28 24-32 [facility]2022-07-17 20:10:00 Test Item Value Reference Range Interpretation Comments Calcium Lvl (test code = Calcium Lvl) 8.1 8.5-10.5 [facility]2022-07-17 20:10:00 Test Item Value Reference Range Interpretation Comments Total Protein (test code = Total 5.8 6.4-8.4 Protein) [facility]2022-07-17 20:10:00 Test Item Value Reference Range Interpretation Comments Albumin Lvl (test code = Albumin Lvl) 2.6 3.5-5.0 [facility]2022-07-17 20:10:00 Test Item Value Reference Range Interpretation Comments ALT (test code = ALT) 74 See_Comment [Auto mated message] The system which ge nerated this result transmit swathi reference range : <=65. The reference range was not used to interpr et this result as deny l/abnormal. [place] 074992-07-17 20:10:00 Test Item Value Reference Range Interpretation Comments AST (test code = AST) 117 See_Comment [Auto mated message] The system which ge nerated this result transmit swathi reference range : <=37. The reference range was not used to interpr et this result as deny l/abnormal. [place] 074992-07-17 20:10:00 Test Item Value Reference Range Interpretation Comments Alk Phos (test code = Alk Phos) 241 39-136 [place] 074992-07-17 20:10:00 Test Item Value Reference Range Interpretation Comments Bili Total (test code = Bili Total) 0.8 0.2-1.3 [place] [address]-07-17 20:10:00 Test Item Value Reference Range Interpretation Comments AGAP (test code = AGAP) 9.1 10.0-20.0 [place] 074992-07-17 20:10:00 Test Item Value Reference Range Interpretation Comments B/C Ratio (test code = B/C Ratio) 6 1 6-25 [place] 074992-07-17 20:10:00 Test Item Value Reference Range Interpretation Comments Globulin (test code = Globulin) 3.2 2.7-4.2 [place] 074992-07-17 20:10:00 Test Item Value Reference Range Interpretation Comments A/G Ratio (test code = A/G Ratio) 0.8 1 0.7-1.6 [place] [address]-07-17 20:10:00 Test Item Value Reference Range Interpretation Comments eGFR (test code = eGFR) 9 [place] 152042-07-17 20:10:00 Test Item Value Reference Range Interpretation Comments WBC (test code = WBC) 4.3 3.7-10.4 [place] 152042-07-17 20:10:00 Test Item Value Reference Range Interpretation Comments RBC (test code = RBC) 2.17 4.70-6.10 [place] 152042-07-17 20:10:00 Test Item Value Reference Range Interpretation Comments Hgb (test code = Hgb) 7.7 14.0-18.0 [facility] HospitalQrehvssMMDWIOKVAM9809-94-70 20:10:00 Test Item Value Reference Range Interpretation Comments Hct (test code = Hct) 22.9 42.0-54.0 [facility] HospitalUmywhciFXHRAPBUTO6492-25-05 20:10:00 Test Item Value Reference Range Interpretation Comments MCV (test code = MCV) 105.9 80.0-94.0 [facility] HospitalGgchqmwIWIRGMIOUU7858-93-45 20:10:00 Test Item Value Reference Range Interpretation Comments MCH (test code = MCH) 35.4 pg 27.0-31.0 [facility] HospitalWjpuhdgWXMNPRYQZC5980-25-04 20:10:00 Test Item Value Reference Range Interpretation Comments MCHC (test code = MCHC) 33.4 32.0-36.0 [facility] HospitalRndjncjGEPKKYRLFL3581-67-54 20:10:00 Test Item Value Reference Range Interpretation Comments RDW (test code = RDW) 23.6 11.5-14.5 [facility] HospitalAdintlaFCBOOKBWRP6715-24-01 20:10:00 Test Item Value Reference Range Interpretation Comments Platelet (test code = Platelet) 146 133-450 [facility] HospitalUuycibeKEKKTODIBG7483-30-77 20:10:00 Test Item Value Reference Range Interpretation Comments MPV (test code = MPV) 8.0 7.4-10.4 [facility] HospitalOtehlwbTHIZLWVHOP3331-55-27 20:10:00 Test Item Value Reference Range Interpretation Comments Plt Morph (test code = Normal (12/14/21 3:10 Plt Morph) PM) [facility] HospitalNtbllfyQOMRUELRFR2198-18-04 20:10:00 Test Item Value Reference Range Interpretation Comments Segs (test code = Segs) 67.4 45.0-75.0 [place] 152042-07-17 20:10:00 Test Item Value Reference Range Interpretation Comments Lymphocytes (test code = Lymphocytes) 12.8 20.0-40.0 [place] 152042-07-17 20:10:00 Test Item Value Reference Range Interpretation Comments Monocytes (test code = Monocytes) 15.1 2.0-12.0 [place] 152042-07-17 20:10:00 Test Item Value Reference Range Interpretation Comments Eosinophils (test code = 4.1 See_Comment [A utomated message] The Eosinophils) system which ge nerated this result tra nsmitted reference range : <=4.0. The reference r samantha was not used to int erpret this result as normal/abnormal . [facility] Ho[id number] 20:10:00 Test Item Value Reference Range Interpretation Comments Basophils (test code = 0.6 See_Comment [Aut omated message] The Basophils) system which ge nerated this result tra nsmitted reference range : <=1.0. The reference r samantha was not used to int erpret this result as normal/abnormal . [facility] H[id number] 20:10:00 Test Item Value Reference Range Interpretation Comments Neutrophils # (test code = Neutrophils 2.9 1.5-8.1 #) [facility] HospitalBmgalqvOWEHPINLNQ8364-34-04 20:10:00 Test Item Value Reference Range Interpretation Comments Lymphocytes # (test code = Lymphocytes 0.5 1.0-5.5 #) [facility] HospitalSdenkotQOWTENBVBT3643-49-13 20:10:00 Test Item Value Reference Range Interpretation Comments Monocytes # (test code 0.6 See_Comment [Aut omated message] The = Monocytes #) system which generated this result tra nsmitted reference range : <=0.8. The reference r samantha was not used to int erpret this result as normal/abnormal . [facility] HospitalNydizmfGJQIRTUEIE7962-75-16 20:10:00 Test Item Value Reference Range Interpretation Comments Eosinophils # (test code 0.2 See_Comment [A utomated message] The = Eosinophils #) system ic h generated this result tra nsmitted reference range : <=0.5. The reference r samantha was not used to int erpret this result as normal/abnormal . [facility] HospitalXgyxpeyMXUDWIQSFN6499-11-41 20:10:00 Test Item Value Reference Range Interpretation Comments Anisocyte (test code = 1+ *ABN*(12/14/21 Anisocyte) 3:10 PM) [facility] HospitalSttxfpyKZQQEGPNBE9120-09-48 20:10:00 Test Item Value Reference Range Interpretation Comments Macrocyte (test code = 1+ *ABN*(12/14/21 Macrocyte) 3:10 PM) [facility]wrTEPZBRRYFY0080-17-13 20:10:00 Test Item Value Reference Range Interpretation Comments Coronavirus (COVID-19) Detected MANUEL (test code = 4*ABN*(12/14/21 3:10 Coronavirus (COVID-19) PM) MANUEL) [facility] Hospital[facility]ARD[facility] [id number] 20:10:00 Test Item Value Reference Range Interpretation Comments HS Troponin I Baseline (test code = HS 340 Troponin I Baseline) [facility] [id number] 20:10:00 Test Item Value Reference Range Interpretation Comments Glucose Lvl (test code = Glucose Lvl) 60 70-99 [facility] [id number] 20:10:00 Test Item Value Reference Range Interpretation Comments BUN (test code = BUN) 35 7-22 [facility] [id number] 20:10:00 Test Item Value Reference Range Interpretation Comments Creatinine Lvl (test code = Creatinine 6.10 0.50-1.40 Lvl) [facility] [id number] 20:10:00 Test Item Value Reference Range Interpretation Comments Sodium Lvl (test code = Sodium Lvl) 139 135-145 [facility] [id number] 20:10:00 Test Item Value Reference Range Interpretation Comments Potassium Lvl (test code = Potassium 3.1 3.5-5.1 Lvl) [facility] [id number] 20:10:00 Test Item Value Reference Range Interpretation Comments Chloride Lvl (test code = Chloride Lvl) 105 95-109 [facility] [id number] 20:10:00 Test Item Value Reference Range Interpretation Comments CO2 (test code = CO2) 28 24-32 [facility]2022-07-17 20:10:00 Test Item Value Reference Range Interpretation Comments Calcium Lvl (test code = Calcium Lvl) 8.1 8.5-10.5 [facility]2022-07-17 20:10:00 Test Item Value Reference Range Interpretation Comments Total Protein (test code = Total 5.8 6.4-8.4 Protein) [facility]2022-07-17 20:10:00 Test Item Value Reference Range Interpretation Comments Albumin Lvl (test code = Albumin Lvl) 2.6 3.5-5.0 [facility]2022-07-17 20:10:00 Test Item Value Reference Range Interpretation Comments ALT (test code = ALT) 74 See_Comment [Auto mated message] The system which ge nerated this result transmit swathi reference range : <=65. The reference range was not used to interpr et this result as deny l/abnormal. [facility] [employer] [id number] 20:10:00 Test Item Value Reference Range Interpretation Comments AST (test code = AST) 117 See_Comment [Auto mated message] The system which ge nerated this result transmit swathi reference range : <=37. The reference range was not used to interpr et this result as deny l/abnormal. [facility] [employer] [id number] 20:10:00 Test Item Value Reference Range Interpretation Comments Alk Phos (test code = Alk Phos) 241 39-136 [facility] [employer] [id number] 20:10:00 Test Item Value Reference Range Interpretation Comments Bili Total (test code = Bili Total) 0.8 0.2-1.3 [facility] [id number] 20:10:00 Test Item Value Reference Range Interpretation Comments AGAP (test code = AGAP) 9.1 10.0-20.0 [facility] [id number] 20:10:00 Test Item Value Reference Range Interpretation Comments B/C Ratio (test code = B/C Ratio) 6 1 6-25 [facility] [id number] 20:10:00 Test Item Value Reference Range Interpretation Comments Globulin (test code = Globulin) 3.2 2.7-4.2 [facility] [id number] 20:10:00 Test Item Value Reference Range Interpretation Comments A/G Ratio (test code = A/G Ratio) 0.8 1 0.7-1.6 [facility] [id number] 20:10:00 Test Item Value Reference Range Interpretation Comments eGFR (test code = eGFR) 9 [facility] HospitalPmuamaiWYJLRLSOTT3690-26-31 20:10:00 Test Item Value Reference Range Interpretation Comments WBC (test code = WBC) 4.3 3.7-10.4 [place] 152042-07-17 20:10:00 Test Item Value Reference Range Interpretation Comments RBC (test code = RBC) 2.17 4.70-6.10 [facility] HospitalAdmuoamABLKLYESGI5460-80-32 20:10:00 Test Item Value Reference Range Interpretation Comments Hgb (test code = Hgb) 7.7 14.0-18.0 [facility] HospitalQdphubuQTFBFKFUJJ2988-28-62 20:10:00 Test Item Value Reference Range Interpretation Comments Hct (test code = Hct) 22.9 42.0-54.0 [facility] HospitalDiaaqfpPIPMOKDIGZ9549-29-47 20:10:00 Test Item Value Reference Range Interpretation Comments MCV (test code = MCV) 105.9 80.0-94.0 [facility] HospitalKwsauqiEKHUKTYCVZ3070-94-68 20:10:00 Test Item Value Reference Range Interpretation Comments MCH (test code = MCH) 35.4 pg 27.0-31.0 [facility] HospitalRzoouyrVSBAZPIHSQ5403-65-32 20:10:00 Test Item Value Reference Range Interpretation Comments MCHC (test code = MCHC) 33.4 32.0-36.0 [facility] HospitalEtyyggwUTWTHSETSW8221-65-84 20:10:00 Test Item Value Reference Range Interpretation Comments RDW (test code = RDW) 23.6 11.5-14.5 [facility] HospitalLjehbcqWOAWIWWBJF0473-26-34 20:10:00 Test Item Value Reference Range Interpretation Comments Platelet (test code = Platelet) 146 133-450 [facility] HospitalPhwizsfTGHVEDFXAN8704-02-89 20:10:00 Test Item Value Reference Range Interpretation Comments MPV (test code = MPV) 8.0 7.4-10.4 [facility] HospitalQgbevuuARETNKSQTJ9139-33-52 20:10:00 Test Item Value Reference Range Interpretation Comments Plt Morph (test code = Normal (12/14/21 3:10 Plt Morph) PM) [facility] HospitalZifrcqwEGDARVGXKT1052-93-09 20:10:00 Test Item Value Reference Range Interpretation Comments Segs (test code = Segs) 67.4 45.0-75.0 [place] 152042-07-17 20:10:00 Test Item Value Reference Range Interpretation Comments Lymphocytes (test code = Lymphocytes) 12.8 20.0-40.0 [place] 152042-07-17 20:10:00 Test Item Value Reference Range Interpretation Comments Monocytes (test code = Monocytes) 15.1 2.0-12.0 [place] 152042-07-17 20:10:00 Test Item Value Reference Range Interpretation Comments Eosinophils (test code = 4.1 See_Comment [A utomated message] The Eosinophils) system which ge nerated this result tra nsmitted reference range : <=4.0. The reference r samantha was not used to int erpret this result as normal/abnormal . [facility] HospitalTqopdelJHAGOSGBFP4700-05-34 20:10:00 Test Item Value Reference Range Interpretation Comments Basophils (test code = 0.6 See_Comment [Aut omated message] The Basophils) system which ge nerated this result tra nsmitted reference range : <=1.0. The reference r samantha was not used to int erpret this result as normal/abnormal . [facility] HospitalIphaylcNXSKKZLKHW3500-51-23 20:10:00 Test Item Value Reference Range Interpretation Comments Neutrophils # (test code = Neutrophils 2.9 1.5-8.1 #) [facility] HospitalCrdyahxOIYPYAXXAM1029-18-73 20:10:00 Test Item Value Reference Range Interpretation Comments Lymphocytes # (test code = Lymphocytes 0.5 1.0-5.5 #) [facility] HospitalXsusjnfGGDMFIDTWI5730-04-25 20:10:00 Test Item Value Reference Range Interpretation Comments Monocytes # (test code 0.6 See_Comment [Aut omated message] The = Monocytes #) system which generated this result tra nsmitted reference range : <=0.8. The reference r samantha was not used to int erpret this result as normal/abnormal . [facility] HospitalUkrpzeqMICVYYBLGD2993-34-93 20:10:00 Test Item Value Reference Range Interpretation Comments Eosinophils # (test code 0.2 See_Comment [A utomated message] The = Eosinophils #) system [facility] h generated this result tra nsmitted reference range : <=0.5. The reference r samantha was not used to int erpret this result as normal/abnormal . [facility] HospitalTushobcVEIPWOVXCB5797-80-02 20:10:00 Test Item Value Reference Range Interpretation Comments Anisocyte (test code = 1+ *ABN*(12/14/21 Anisocyte) 3:10 PM) [facility] HospitalSzdjrmaQAKCRPSONW2756-56-72 20:10:00 Test Item Value Reference Range Interpretation Comments Macrocyte (test code = 1+ *ABN*(12/14/21 Macrocyte) 3:10 PM) [facility] HospitalXyahkyyKLFINJKWHB1557-70-51 20:10:00 Test Item Value Reference Range Interpretation Comments Coronavirus (COVID-19) Detected MANUEL (test code = 4*ABN*(12/14/21 3:10 Coronavirus (COVID-19) PM) MANUEL) [facility] HospitalCARD[facility] [id number] 20:10:00 Test Item Value Reference Range Interpretation Comments HS Troponin I Baseline (test code = HS 340 Troponin I Baseline) [facility] [id number] 20:10:00 Test Item Value Reference Range Interpretation Comments Glucose Lvl (test code = Glucose Lvl) 60 70-99 [facility] [id number] 20:10:00 Test Item Value Reference Range Interpretation Comments BUN (test code = BUN) 35 7-22 [facility] [id number] 20:10:00 Test Item Value Reference Range Interpretation Comments Creatinine Lvl (test code = Creatinine 6.10 0.50-1.40 Lvl) [facility]2022-07-17 20:10:00 Test Item Value Reference Range Interpretation Comments Sodium Lvl (test code = Sodium Lvl) 139 135-145 [facility]2022-07-17 20:10:00 Test Item Value Reference Range Interpretation Comments Potassium Lvl (test code = Potassium 3.1 3.5-5.1 Lvl) [facility]2022-07-17 20:10:00 Test Item Value Reference Range Interpretation Comments Chloride Lvl (test code = Chloride Lvl) 105 95-109 [facility]2022-07-17 20:10:00 Test Item Value Reference Range Interpretation Comments CO2 (test code = CO2) 28 24-32 [facility]2022-07-17 20:10:00 Test Item Value Reference Range Interpretation Comments Calcium Lvl (test code = Calcium Lvl) 8.1 8.5-10.5 [facility]2022-07-17 20:10:00 Test Item Value Reference Range Interpretation Comments Total Protein (test code = Total 5.8 6.4-8.4 Protein) [facility]2022-07-17 20:10:00 Test Item Value Reference Range Interpretation Comments Albumin Lvl (test code = Albumin Lvl) 2.6 3.5-5.0 [facility]2022-07-17 20:10:00 Test Item Value Reference Range Interpretation Comments ALT (test code = ALT) 74 See_Comment [Auto mated message] The system which ge nerated this result transmit swathi reference range : <=65. The reference range was not used to interpr et this result as deny l/abnormal. [facility] [id number] 20:10:00 Test Item Value Reference Range Interpretation Comments AST (test code = AST) 117 See_Comment [Auto mated message] The system which ge nerated this result transmit swathi reference range : <=37. The reference range was not used to interpr et this result as deny l/abnormal. [facility] [id number] 20:10:00 Test Item Value Reference Range Interpretation Comments Alk Phos (test code = Alk Phos) 241 39-136 [facility] [id number] 20:10:00 Test Item Value Reference Range Interpretation Comments Bili Total (test code = Bili Total) 0.8 0.2-1.3 [facility] HospitalEquals6 [id number] 20:10:00 Test Item Value Reference Range Interpretation Comments AGAP (test code = AGAP) 9.1 10.0-20.0 [facility] [id number] 20:10:00 Test Item Value Reference Range Interpretation Comments B/C Ratio (test code = B/C Ratio) 6 1 6-25 [facility] [id number] 20:10:00 Test Item Value Reference Range Interpretation Comments Globulin (test code = Globulin) 3.2 2.7-4.2 [facility] [id number] 20:10:00 Test Item Value Reference Range Interpretation Comments A/G Ratio (test code = A/G Ratio) 0.8 1 0.7-1.6 [facility] [id number] 20:10:00 Test Item Value Reference Range Interpretation Comments eGFR (test code = eGFR) 9 [facility] HospitalXiiohmfXQZVOSHJGF8875-95-38 20:10:00 Test Item Value Reference Range Interpretation Comments WBC (test code = WBC) 4.3 3.7-10.4 [place] 152042-07-17 20:10:00 Test Item Value Reference Range Interpretation Comments RBC (test code = RBC) 2.17 4.70-6.10 [facility] HospitalJzekmpuZYWNNMRMVN6157-26-40 20:10:00 Test Item Value Reference Range Interpretation Comments Hgb (test code = Hgb) 7.7 14.0-18.0 [facility] HospitalGaybyahNKBFVISIPH1821-14-05 20:10:00 Test Item Value Reference Range Interpretation Comments Hct (test code = Hct) 22.9 42.0-54.0 [place] 152042-07-17 20:10:00 Test Item Value Reference Range Interpretation Comments MCV (test code = MCV) 105.9 80.0-94.0 [facility] HospitalFydikczLSSQXMHGKA9408-88-23 20:10:00 Test Item Value Reference Range Interpretation Comments MCH (test code = MCH) 35.4 pg 27.0-31.0 [facility] HospitalKtyospjUXOSKVCIHY2958-41-26 20:10:00 Test Item Value Reference Range Interpretation Comments MCHC (test code = MCHC) 33.4 32.0-36.0 [facility] HospitalPwdvbquAIMXJUCHRR2539-71-46 20:10:00 Test Item Value Reference Range Interpretation Comments RDW (test code = RDW) 23.6 11.5-14.5 [facility] HospitalUblibywLPAJLLBURW8507-06-96 20:10:00 Test Item Value Reference Range Interpretation Comments Platelet (test code = Platelet) 146 133-450 [facility] HospitalWkgbshtDOOYBWIOIY9713-54-53 20:10:00 Test Item Value Reference Range Interpretation Comments MPV (test code = MPV) 8.0 7.4-10.4 [place] 152042-07-17 20:10:00 Test Item Value Reference Range Interpretation Comments Plt Morph (test code = Normal (12/14/21 3:10 Plt Morph) PM) [facility] HospitalBsezvrlEDAKAYBXPO5065-96-77 20:10:00 Test Item Value Reference Range Interpretation Comments Segs (test code = Segs) 67.4 45.0-75.0 [place] 152042-07-17 20:10:00 Test Item Value Reference Range Interpretation Comments Lymphocytes (test code = Lymphocytes) 12.8 20.0-40.0 [place] 152042-07-17 20:10:00 Test Item Value Reference Range Interpretation Comments Monocytes (test code = Monocytes) 15.1 2.0-12.0 [place] 152042-07-17 20:10:00 Test Item Value Reference Range Interpretation Comments Eosinophils (test code = 4.1 See_Comment [A utomated message] The Eosinophils) system which ge nerated this result tra nsmitted reference range : <=4.0. The reference r samantha was not used to int erpret this result as normal/abnormal . [facility] HospitalQgejjhwLIUZWWPNDA6187-72-73 20:10:00 Test Item Value Reference Range Interpretation Comments Basophils (test code = 0.6 See_Comment [Aut omated message] The Basophils) system which ge nerated this result tra nsmitted reference range : <=1.0. The reference r samantha was not used to int erpret this result as normal/abnormal . [facility] HospitalFvjtazqPYUPEEZYHK8328-36-37 20:10:00 Test Item Value Reference Range Interpretation Comments Neutrophils # (test code = Neutrophils 2.9 1.5-8.1 #) [facility] HospitalBtvunbyONHZOVOPZN9863-27-86 20:10:00 Test Item Value Reference Range Interpretation Comments Lymphocytes # (test code = Lymphocytes 0.5 1.0-5.5 #) [facility] HospitalRwzojviWSYKULKKRH5387-02-63 20:10:00 Test Item Value Reference Range Interpretation Comments Monocytes # (test code 0.6 See_Comment [Aut omated message] The = Monocytes #) system which generated this result tra nsmitted reference range : <=0.8. The reference r samantha was not used to int erpret this result as normal/abnormal . [facility] HospitalOxgdmgxAEHXANNQFC5001-59-44 20:10:00 Test Item Value Reference Range Interpretation Comments Eosinophils # (test code 0.2 See_Comment [A utomated message] The = Eosinophils #) system [facility] h generated this result tra nsmitted reference range : <=0.5. The reference r samantha was not used to int erpret this result as normal/abnormal . [facility] HospitalQtnwitoPOZQBQYNWG9190-74-76 20:10:00 Test Item Value Reference Range Interpretation Comments Anisocyte (test code = 1+ *ABN*(12/14/21 Anisocyte) 3:10 PM) [facility] HospitalFnuiebkBMFBQRVZGA6315-54-09 20:10:00 Test Item Value Reference Range Interpretation Comments Macrocyte (test code = 1+ *ABN*(12/14/21 Macrocyte) 3:10 PM) [facility]uvyliqWOSIAKAIPL2365-48-62 20:10:00 Test Item Value Reference Range Interpretation Comments Coronavirus (COVID-19) Detected MANUEL (test code = 4*ABN*(12/14/21 3:10 Coronavirus (COVID-19) PM) MANUEL) [facility] [id number] 01:43:00 Test Item Value Reference Range Interpretation Comments Occult Bld Stl (test Negative (12/03/21 8:43 code = Occult Bld Stl) PM) [facility] [id number] 01:43:00 Test Item Value Reference Range Interpretation Comments Occult Bld Stl (test Negative (12/03/21 8:43 code = Occult Bld Stl) PM) [facility] [id number] 01:43:00 Test Item Value Reference Range Interpretation Comments Occult Bld Stl (test Negative (12/03/21 8:43 code = Occult Bld Stl) PM) [facility] [id number] 01:43:00 Test Item Value Reference Range Interpretation Comments Occult Bld Stl (test Negative (12/03/21 8:43 code = Occult Bld Stl) PM) [facility] [id number] 01:43:00 Test Item Value Reference Range Interpretation Comments Occult Bld Stl (test Negative (12/03/21 8:43 code = Occult Bld Stl) PM) [facility] [id number] 01:43:00 Test Item Value Reference Range Interpretation Comments Occult Bld Stl (test Negative (12/03/21 8:43 code = Occult Bld Stl) PM) [facility] [id number] 01:43:00 Test Item Value Reference Range Interpretation Comments Occult Bld Stl (test Negative (12/03/21 8:43 code = Occult Bld Stl) PM) [facility] [id number] 01:43:00 Test Item Value Reference Range Interpretation Comments Occult Bld Stl (test Negative (12/03/21 8:43 code = Occult Bld Stl) PM) [facility] [id number] 01:43:00 Test Item Value Reference Range Interpretation Comments Occult Bld Stl (test Negative (12/03/21 8:43 code = Occult Bld Stl) PM) [facility]2022-07-07 01:43:00 Test Item Value Reference Range Interpretation Comments Occult Bld Stl (test Negative (12/03/21 8:43 code = Occult Bld Stl) PM) [facility] [id number] 01:29:00 Test Item Value Reference Range Interpretation Comments RBC product (test code Product available = RBC product) 2(12/03/21 8:29 PM) [facility] [id number] 01:29:00 Test Item Value Reference Range Interpretation Comments RBC product (test code Product available = RBC product) 2(12/03/21 8:29 PM) [facility] [id number] 01:29:00 Test Item Value Reference Range Interpretation Comments RBC product (test code Product available = RBC product) 2(12/03/21 8:29 PM) [facility] [id number] 01:29:00 Test Item Value Reference Range Interpretation Comments RBC product (test code Product available = RBC product) 2(12/03/21 8:29 PM) [facility] [id number] 01:29:00 Test Item Value Reference Range Interpretation Comments RBC product (test code Product available = RBC product) 2(12/03/21 8:29 PM) [facility] [id number] 01:29:00 Test Item Value Reference Range Interpretation Comments RBC product (test code Product available = RBC product) 2(12/03/21 8:29 PM) [facility] [id number] 01:29:00 Test Item Value Reference Range Interpretation Comments RBC product (test code Product available = RBC product) 2(12/03/21 8:29 PM) [facility] [id number] 01:29:00 Test Item Value Reference Range Interpretation Comments RBC product (test code Product available = RBC product) 2(12/03/21 8:29 PM) [facility] [id number] 01:29:00 Test Item Value Reference Range Interpretation Comments RBC product (test code Product available = RBC product) 2(12/03/21 8:29 PM) [facility] [id number] 01:29:00 Test Item Value Reference Range Interpretation Comments RBC product (test code Product available = RBC product) 2(12/03/21 8:29 PM) [facility] [employer] [id number] 00:36:00 Test Item Value Reference Range Interpretation Comments ABO/Rh (test code = ABO/Rh) AB POS [facility] [employer] [id number] 00:36:00 Test Item Value Reference Range Interpretation Comments Antibody Scrn (test Negative (12/03/21 7:36 code = Antibody Scrn) PM) [facility] [employer] [id number] 00:36:00 Test Item Value Reference Range Interpretation Comments Glucose Lvl (test code = Glucose Lvl) 143 70-99 [facility] [employer] [id number] 00:36:00 Test Item Value Reference Range Interpretation Comments BUN (test code = BUN) 39 - [facility] [employer] [id number] 00:36:00 Test Item Value Reference Range Interpretation Comments Creatinine Lvl (test code = Creatinine 5.46 0.50-1.40 Lvl) [facility] [employer] [id number] 00:36:00 Test Item Value Reference Range Interpretation Comments Sodium Lvl (test code = Sodium Lvl) 136 135-145 [facility] [employer] [id number] 00:36:00 Test Item Value Reference Range Interpretation Comments Potassium Lvl (test code = Potassium 4.2 3.5-5.1 Lvl) [facility] [employer] [id number] 00:36:00 Test Item Value Reference Range Interpretation Comments Chloride Lvl (test code = Chloride Lvl) 100 95-109 [facility] [employer] [id number] 00:36:00 Test Item Value Reference Range Interpretation Comments CO2 (test code = CO2) 27 24-32 [facility] [employer] [id number] 00:36:00 Test Item Value Reference Range Interpretation Comments Calcium Lvl (test code = Calcium Lvl) 8.9 8.5-10.5 [facility] [employer] [id number] 00:36:00 Test Item Value Reference Range Interpretation Comments AGAP (test code = AGAP) 13.2 10.0-20.0 [facility] [employer] [id number] 00:36:00 Test Item Value Reference Range Interpretation Comments eGFR (test code = eGFR) 10 [facility]CbiheiqHJEPZXWVQS3915-00-23 00:36:00 Test Item Value Reference Range Interpretation Comments WBC (test code = WBC) 2.5 3.7-10.4 [facility] HospitalHhxsuruUGLUYEDKKW7247-42-83 00:36:00 Test Item Value Reference Range Interpretation Comments RBC (test code = RBC) 1.97 4.70-6.10 [facility] HospitalZuvrczoYRUXSEJRDY7770-67-17 00:36:00 Test Item Value Reference Range Interpretation Comments Hgb (test code = Hgb) 7.1 14.0-18.0 [facility] HospitalEfvvjowASTICVYXGE8670-62-89 00:36:00 Test Item Value Reference Range Interpretation Comments Hct (test code = Hct) 20.6 42.0-54.0 [facility] HospitalQgzvlicRWCQVOLNUZ1221-41-61 00:36:00 Test Item Value Reference Range Interpretation Comments MCV (test code = MCV) 105.0 80.0-94.0 [facility] HospitalZptxtxjNLACWJXFLB9373-80-79 00:36:00 Test Item Value Reference Range Interpretation Comments MCH (test code = MCH) 36.2 pg 27.0-31.0 [facility] HospitalDsocapjLZDIEEDWNT8510-57-91 00:36:00 Test Item Value Reference Range Interpretation Comments MCHC (test code = MCHC) 34.5 32.0-36.0 [facility] HospitalWdfciawPORUWKQBKG6294-95-47 00:36:00 Test Item Value Reference Range Interpretation Comments RDW (test code = RDW) 21.1 11.5-14.5 [facility] HospitalRmzfxssJVFLXXGWWA8070-09-75 00:36:00 Test Item Value Reference Range Interpretation Comments Platelet (test code = Platelet) 136 133-450 [facility] HospitalFbvxcnvBNPHZTFECR2245-20-19 00:36:00 Test Item Value Reference Range Interpretation Comments MPV (test code = MPV) 8.7 7.4-10.4 [facility] HospitalIoyftrwHYUBXQHZDC5062-80-60 00:36:00 Test Item Value Reference Range Interpretation Comments Segs (test code = Segs) 59.5 45.0-75.0 [facility] HospitalOxkcsbxWBYVPQLFKS0280-69-83 00:36:00 Test Item Value Reference Range Interpretation Comments Lymphocytes (test code = Lymphocytes) 25.2 20.0-40.0 [facility] HospitalWbjgsvbCBMGVGYPWL4411-91-90 00:36:00 Test Item Value Reference Range Interpretation Comments Monocytes (test code = Monocytes) 12.5 2.0-12.0 [facility] HospitalQvpbcqhVHCBQASHIK4894-44-52 00:36:00 Test Item Value Reference Range Interpretation Comments Eosinophils (test code = 2.1 See_Comment [A utomated message] The Eosinophils) system which ge nerated this result tra nsmitted reference range : <=4.0. The reference r samantha was not used to int erpret this result as normal/abnormal . [facility] HospitalXzxdljwPBRJBQAUNK1491-74-87 00:36:00 Test Item Value Reference Range Interpretation Comments Basophils (test code = 0.7 See_Comment [Aut omated message] The Basophils) system which ge nerated this result tra nsmitted reference range : <=1.0. The reference r samantha was not used to int erpret this result as normal/abnormal . [facility] HospitalPrlgudfXEOTEDPZQA5060-16-48 00:36:00 Test Item Value Reference Range Interpretation Comments Neutrophils # (test code = Neutrophils 1.5 1.5-8.1 #) [facility] HospitalImirbfbCDCMBURPUB2195-52-21 00:36:00 Test Item Value Reference Range Interpretation Comments Lymphocytes # (test code = Lymphocytes 0.6 1.0-5.5 #) [facility] HospitalAfpudrlYWGSQPGEFI1218-65-74 00:36:00 Test Item Value Reference Range Interpretation Comments Monocytes # (test code 0.3 See_Comment [Aut omated message] The = Monocytes #) system which generated this result tra nsmitted reference range : <=0.8. The reference r samantha was not used to int erpret this result as normal/abnormal . [facility] HospitalSzfskugHECHPZOBQB3138-56-19 00:36:00 Test Item Value Reference Range Interpretation Comments Eosinophils # (test code 0.1 See_Comment [A utomated message] The = Eosinophils #) system whic h generated this result tra nsmitted reference range : <=0.5. The reference r samantha was not used to int erpret this result as normal/abnormal . [facility] HospitalOptimenga777 SYDFHYT6918-57-05 00:36:00 Test Item Value Reference Range Interpretation Comments ABO/Rh (test code = ABO/Rh) AB POS [facility] [id number] 00:36:00 Test Item Value Reference Range Interpretation Comments Antibody Scrn (test Negative (12/03/21 7:36 code = Antibody Scrn) PM) [place] 074992-07-07 00:36:00 Test Item Value Reference Range Interpretation Comments Glucose Lvl (test code = Glucose Lvl) 143 70-99 [place] 074992-07-07 00:36:00 Test Item Value Reference Range Interpretation Comments BUN (test code = BUN) 39 7-22 [place] 074992-07-07 00:36:00 Test Item Value Reference Range Interpretation Comments Creatinine Lvl (test code = Creatinine 5.46 0.50-1.40 Lvl) [place] 074992-07-07 00:36:00 Test Item Value Reference Range Interpretation Comments Sodium Lvl (test code = Sodium Lvl) 136 135-145 [place] 074992-07-07 00:36:00 Test Item Value Reference Range Interpretation Comments Potassium Lvl (test code = Potassium 4.2 3.5-5.1 Lvl) [place] 074992-07-07 00:36:00 Test Item Value Reference Range Interpretation Comments Chloride Lvl (test code = Chloride Lvl) 100 95-109 [place] 074992-07-07 00:36:00 Test Item Value Reference Range Interpretation Comments CO2 (test code = CO2) 27 24-32 [place] 074992-07-07 00:36:00 Test Item Value Reference Range Interpretation Comments Calcium Lvl (test code = Calcium Lvl) 8.9 8.5-10.5 [place] 074992-07-07 00:36:00 Test Item Value Reference Range Interpretation Comments AGAP (test code = AGAP) 13.2 10.0-20.0 [place] 074992-07-07 00:36:00 Test Item Value Reference Range Interpretation Comments eGFR (test code = eGFR) 10 [facility] HospitalUnrbezrRAUWETRJZF0362-45-75 00:36:00 Test Item Value Reference Range Interpretation Comments WBC (test code = WBC) 2.5 3.7-10.4 [place] 152042-07-07 00:36:00 Test Item Value Reference Range Interpretation Comments RBC (test code = RBC) 1.97 4.70-6.10 [place] 152042-07-07 00:36:00 Test Item Value Reference Range Interpretation Comments Hgb (test code = Hgb) 7.1 14.0-18.0 [facility] HospitalTurblmwGRDHHDTOHW3852-27-68 00:36:00 Test Item Value Reference Range Interpretation Comments Hct (test code = Hct) 20.6 42.0-54.0 [facility] HospitalWrkycfqAOYFABPDYY1454-54-66 00:36:00 Test Item Value Reference Range Interpretation Comments MCV (test code = MCV) 105.0 80.0-94.0 [facility] HospitalBcnjgutBFVAPEQYUP3067-54-76 00:36:00 Test Item Value Reference Range Interpretation Comments MCH (test code = MCH) 36.2 pg 27.0-31.0 [facility] HospitalAgierxuSYBRSDXKMF4876-15-58 00:36:00 Test Item Value Reference Range Interpretation Comments MCHC (test code = MCHC) 34.5 32.0-36.0 [facility] HospitalWqzuedaREIUZICUJI0428-46-70 00:36:00 Test Item Value Reference Range Interpretation Comments RDW (test code = RDW) 21.1 11.5-14.5 [place] 152042-07-07 00:36:00 Test Item Value Reference Range Interpretation Comments Platelet (test code = Platelet) 136 133-450 [facility] HospitalBrhkdvjITZSLNCIBH1699-77-09 00:36:00 Test Item Value Reference Range Interpretation Comments MPV (test code = MPV) 8.7 7.4-10.4 [place] 152042-07-07 00:36:00 Test Item Value Reference Range Interpretation Comments Segs (test code = Segs) 59.5 45.0-75.0 [facility] HospitalYitmawwXNSGATXXAM1533-68-19 00:36:00 Test Item Value Reference Range Interpretation Comments Lymphocytes (test code = Lymphocytes) 25.2 20.0-40.0 [place] 152042-07-07 00:36:00 Test Item Value Reference Range Interpretation Comments Monocytes (test code = Monocytes) 12.5 2.0-12.0 [place] 152042-07-07 00:36:00 Test Item Value Reference Range Interpretation Comments Eosinophils (test code = 2.1 See_Comment [A utomated message] The Eosinophils) system which ge nerated this result tra nsmitted reference range : <=4.0. The reference r samantha was not used to int erpret this result as normal/abnormal . [facility] HospitalXcybcqhAYJVEBKNYX4598-35-97 00:36:00 Test Item Value Reference Range Interpretation Comments Basophils (test code = 0.7 See_Comment [Aut omated message] The Basophils) system which ge nerated this result tra nsmitted reference range : <=1.0. The reference r samantha was not used to int erpret this result as normal/abnormal . [facility] HospitalZaapceoJRGCBQDMTM0933-35-96 00:36:00 Test Item Value Reference Range Interpretation Comments Neutrophils # (test code = Neutrophils 1.5 1.5-8.1 #) [facility]EM[facility]:36:00 Test Item Value Reference Range Interpretation Comments Lymphocytes # (test code = Lymphocytes 0.6 1.0-5.5 #) [facility] HospitalGqtqzqwMFDRDYQTUN6649-49-65 00:36:00 Test Item Value Reference Range Interpretation Comments Monocytes # (test code 0.3 See_Comment [Aut omated message] The = Monocytes #) system which generated this result tra nsmitted reference range : <=0.8. The reference r samantha was not used to int erpret this result as normal/abnormal . [facility] HospitalSsuetomBZXKETWKEX4895-54-13 00:36:00 Test Item Value Reference Range Interpretation Comments Eosinophils # (test code 0.1 See_Comment [A utomated message] The = Eosinophils #) system whic h generated this result tra nsmitted reference range : <=0.5. The reference r samantha was not used to int erpret this result as normal/abnormal . [facility] [employer] LUCPPNN4517-23-13 00:36:00 Test Item Value Reference Range Interpretation Comments ABO/Rh (test code = ABO/Rh) AB POS [facility] [employer] [id number] 00:36:00 Test Item Value Reference Range Interpretation Comments Antibody Scrn (test Negative (12/03/21 7:36 code = Antibody Scrn) PM) [facility] [id number] 00:36:00 Test Item Value Reference Range Interpretation Comments Glucose Lvl (test code = Glucose Lvl) 143 70-99 [facility] [id number] 00:36:00 Test Item Value Reference Range Interpretation Comments BUN (test code = BUN) 39 7-22 [place] 074992-07-07 00:36:00 Test Item Value Reference Range Interpretation Comments Creatinine Lvl (test code = Creatinine 5.46 0.50-1.40 Lvl) [place] 074992-07-07 00:36:00 Test Item Value Reference Range Interpretation Comments Sodium Lvl (test code = Sodium Lvl) 136 135-145 [place] 074992-07-07 00:36:00 Test Item Value Reference Range Interpretation Comments Potassium Lvl (test code = Potassium 4.2 3.5-5.1 Lvl) [place] 074992-07-07 00:36:00 Test Item Value Reference Range Interpretation Comments Chloride Lvl (test code = Chloride Lvl) 100 95-109 [place] 074992-07-07 00:36:00 Test Item Value Reference Range Interpretation Comments CO2 (test code = CO2) 27 24-32 [place] 074992-07-07 00:36:00 Test Item Value Reference Range Interpretation Comments Calcium Lvl (test code = Calcium Lvl) 8.9 8.5-10.5 [place] 074992-07-07 00:36:00 Test Item Value Reference Range Interpretation Comments AGAP (test code = AGAP) 13.2 10.0-20.0 [place] 074992-07-07 00:36:00 Test Item Value Reference Range Interpretation Comments eGFR (test code = eGFR) 10 [place] 152042-07-07 00:36:00 Test Item Value Reference Range Interpretation Comments WBC (test code = WBC) 2.5 3.7-10.4 [place] 152042-07-07 00:36:00 Test Item Value Reference Range Interpretation Comments RBC (test code = RBC) 1.97 4.70-6.10 [place] 152042-07-07 00:36:00 Test Item Value Reference Range Interpretation Comments Hgb (test code = Hgb) 7.1 14.0-18.0 [place] 152042-07-07 00:36:00 Test Item Value Reference Range Interpretation Comments Hct (test code = Hct) 20.6 42.0-54.0 [place] 152042-07-07 00:36:00 Test Item Value Reference Range Interpretation Comments MCV (test code = MCV) 105.0 80.0-94.0 [facility] HospitalEqlvwkwHPFGHPGHUQ0127-17-66 00:36:00 Test Item Value Reference Range Interpretation Comments MCH (test code = MCH) 36.2 pg 27.0-31.0 [facility] HospitalUwaljoiBZZXXKPMEG0782-59-37 00:36:00 Test Item Value Reference Range Interpretation Comments MCHC (test code = MCHC) 34.5 32.0-36.0 [facility] HospitalAgfnuqyMSICBCCEUN9523-39-97 00:36:00 Test Item Value Reference Range Interpretation Comments RDW (test code = RDW) 21.1 11.5-14.5 [facility] HospitalXdhtmdrAJLIPFEFTU7495-57-18 00:36:00 Test Item Value Reference Range Interpretation Comments Platelet (test code = Platelet) 136 133-450 [facility] HospitalSjbjoidWRISATVVQP3623-00-55 00:36:00 Test Item Value Reference Range Interpretation Comments MPV (test code = MPV) 8.7 7.4-10.4 [facility] HospitalTnsdgjhJHHTXWDBES5484-70-17 00:36:00 Test Item Value Reference Range Interpretation Comments Segs (test code = Segs) 59.5 45.0-75.0 [facility] HospitalPnlipzpKPDGWKTTLE8557-56-87 00:36:00 Test Item Value Reference Range Interpretation Comments Lymphocytes (test code = Lymphocytes) 25.2 20.0-40.0 [facility] HospitalPkopqssPLCWDBQGUZ0190-83-99 00:36:00 Test Item Value Reference Range Interpretation Comments Monocytes (test code = Monocytes) 12.5 2.0-12.0 [place] 152042-07-07 00:36:00 Test Item Value Reference Range Interpretation Comments Eosinophils (test code = 2.1 See_Comment [A utomated message] The Eosinophils) system which ge nerated this result tra nsmitted reference range : <=4.0. The reference r samantha was not used to int erpret this result as normal/abnormal . [facility] HospitalXggbaaqHGPOFMXRAT0522-92-64 00:36:00 Test Item Value Reference Range Interpretation Comments Basophils (test code = 0.7 See_Comment [Aut omated message] The Basophils) system which ge nerated this result tra nsmitted reference range : <=1.0. The reference r samantha was not used to int erpret this result as normal/abnormal . [facility] HospitalPkyqemkLPKCTWZQRQ7253-73-14 00:36:00 Test Item Value Reference Range Interpretation Comments Neutrophils # (test code = Neutrophils 1.5 1.5-8.1 #) [facility] HospitalRafmxsoLBODKHRYGG7825-15-79 00:36:00 Test Item Value Reference Range Interpretation Comments Lymphocytes # (test code = Lymphocytes 0.6 1.0-5.5 #) [facility] HospitalRknbqsyNYOWCICTCV3444-17-69 00:36:00 Test Item Value Reference Range Interpretation Comments Monocytes # (test code 0.3 See_Comment [Aut omated message] The = Monocytes #) system which generated this result tra nsmitted reference range : <=0.8. The reference r samantha was not used to int erpret this result as normal/abnormal . [facility] HospitalCaokepnLAWJBDSMDG6328-95-55 00:36:00 Test Item Value Reference Range Interpretation Comments Eosinophils # (test code 0.1 See_Comment [A utomated message] The = Eosinophils #) system whic h generated this result tra nsmitted reference range : <=0.5. The reference r samantha was not used to int erpret this result as normal/abnormal . [facility] [place] GWXRJNF5331-81-64 00:36:00 Test Item Value Reference Range Interpretation Comments ABO/Rh (test code = ABO/Rh) AB POS [facility] [id number] 00:36:00 Test Item Value Reference Range Interpretation Comments Antibody Scrn (test Negative (12/03/21 7:36 code = Antibody Scrn) PM) [facility] [id number] 00:36:00 Test Item Value Reference Range Interpretation Comments Glucose Lvl (test code = Glucose Lvl) 143 70-99 [facility] [id number] 00:36:00 Test Item Value Reference Range Interpretation Comments BUN (test code = BUN) 39 7-22 [facility] [id number] 00:36:00 Test Item Value Reference Range Interpretation Comments Creatinine Lvl (test code = Creatinine 5.46 0.50-1.40 Lvl) [facility] [id number] 00:36:00 Test Item Value Reference Range Interpretation Comments Sodium Lvl (test code = Sodium Lvl) 136 135-145 [place] 074992-07-07 00:36:00 Test Item Value Reference Range Interpretation Comments Potassium Lvl (test code = Potassium 4.2 3.5-5.1 Lvl) [place] 074992-07-07 00:36:00 Test Item Value Reference Range Interpretation Comments Chloride Lvl (test code = Chloride Lvl) 100 95-109 [place] 074992-07-07 00:36:00 Test Item Value Reference Range Interpretation Comments CO2 (test code = CO2) 27 24-32 [place] 074992-07-07 00:36:00 Test Item Value Reference Range Interpretation Comments Calcium Lvl (test code = Calcium Lvl) 8.9 8.5-10.5 [place] 074992-07-07 00:36:00 Test Item Value Reference Range Interpretation Comments AGAP (test code = AGAP) 13.2 10.0-20.0 [place] 074992-07-07 00:36:00 Test Item Value Reference Range Interpretation Comments eGFR (test code = eGFR) 10 [place] 152042-07-07 00:36:00 Test Item Value Reference Range Interpretation Comments WBC (test code = WBC) 2.5 3.7-10.4 [place] 152042-07-07 00:36:00 Test Item Value Reference Range Interpretation Comments RBC (test code = RBC) 1.97 4.70-6.10 [place] 152042-07-07 00:36:00 Test Item Value Reference Range Interpretation Comments Hgb (test code = Hgb) 7.1 14.0-18.0 [place] 152042-07-07 00:36:00 Test Item Value Reference Range Interpretation Comments Hct (test code = Hct) 20.6 42.0-54.0 [place] [address]-07-07 00:36:00 Test Item Value Reference Range Interpretation Comments MCV (test code = MCV) 105.0 80.0-94.0 [place] [address]-07-07 00:36:00 Test Item Value Reference Range Interpretation Comments MCH (test code = MCH) 36.2 pg 27.0-31.0 [place] 152042-07-07 00:36:00 Test Item Value Reference Range Interpretation Comments MCHC (test code = MCHC) 34.5 32.0-36.0 [facility] HospitalXuxyoqtTSJFGXLIMO5629-46-56 00:36:00 Test Item Value Reference Range Interpretation Comments RDW (test code = RDW) 21.1 11.5-14.5 [facility] HospitalAqdcfaxVQEHAKXTNL0323-29-79 00:36:00 Test Item Value Reference Range Interpretation Comments Platelet (test code = Platelet) 136 133-450 [facility] HospitalEbfvxuiPCUFYXOZLO2297-28-53 00:36:00 Test Item Value Reference Range Interpretation Comments MPV (test code = MPV) 8.7 7.4-10.4 [facility] HospitalWoerwgzAXCAIMTIJB7949-89-40 00:36:00 Test Item Value Reference Range Interpretation Comments Segs (test code = Segs) 59.5 45.0-75.0 [facility] HospitalTbpodqgLGSJJBGJIR5711-42-62 00:36:00 Test Item Value Reference Range Interpretation Comments Lymphocytes (test code = Lymphocytes) 25.2 20.0-40.0 [place] 152042-07-07 00:36:00 Test Item Value Reference Range Interpretation Comments Monocytes (test code = Monocytes) 12.5 2.0-12.0 [facility] HospitalEdxzqvkIKCFRDFTOQ8953-83-55 00:36:00 Test Item Value Reference Range Interpretation Comments Eosinophils (test code = 2.1 See_Comment [A utomated message] The Eosinophils) system which ge nerated this result tra nsmitted reference range : <=4.0. The reference r samantha was not used to int erpret this result as normal/abnormal . [facility] HospitalXhzkhhzPVSWOMRLDZ1281-80-21 00:36:00 Test Item Value Reference Range Interpretation Comments Basophils (test code = 0.7 See_Comment [Aut omated message] The Basophils) system which ge nerated this result tra nsmitted reference range : <=1.0. The reference r samantha was not used to int erpret this result as normal/abnormal . [facility] HospitalBgmpgbqWRBDILXSEF2156-64-29 00:36:00 Test Item Value Reference Range Interpretation Comments Neutrophils # (test code = Neutrophils 1.5 1.5-8.1 #) [facility] HospitalUfhvpkhLCBVSXGCWO2750-02-76 00:36:00 Test Item Value Reference Range Interpretation Comments Lymphocytes # (test code = Lymphocytes 0.6 1.0-5.5 #) [facility] HospitalHgynaflEKSHMJIQTE1248-46-48 00:36:00 Test Item Value Reference Range Interpretation Comments Monocytes # (test code 0.3 See_Comment [Aut omated message] The = Monocytes #) system which generated this result tra nsmitted reference range : <=0.8. The reference r samantha was not used to int erpret this result as normal/abnormal . [facility] HospitalHqjgynvRNMZUOUWLH1270-68-41 00:36:00 Test Item Value Reference Range Interpretation Comments Eosinophils # (test code 0.1 See_Comment [A utomated message] The = Eosinophils #) system whic h generated this result tra nsmitted reference range : <=0.5. The reference r samantha was not used to int erpret this result as normal/abnormal . [facility] [id number] 00:36:00 Test Item Value Reference Range Interpretation Comments ABO/Rh (test code = ABO/Rh) AB POS [facility] HospitalSavings.[facility] [place] [id number] 00:36:00 Test Item Value Reference Range Interpretation Comments Antibody Scrn (test Negative (12/03/21 7:36 code = Antibody Scrn) PM) [facility] [id number] 00:36:00 Test Item Value Reference Range Interpretation Comments Glucose Lvl (test code = Glucose Lvl) 143 70-99 [facility] [employer] [id number] 00:36:00 Test Item Value Reference Range Interpretation Comments BUN (test code = BUN) 39 7-22 [facility] [employer] [id number] 00:36:00 Test Item Value Reference Range Interpretation Comments Creatinine Lvl (test code = Creatinine 5.46 0.50-1.40 Lvl) [facility] [id number] 00:36:00 Test Item Value Reference Range Interpretation Comments Sodium Lvl (test code = Sodium Lvl) 136 135-145 [facility] [employer] [id number] 00:36:00 Test Item Value Reference Range Interpretation Comments Potassium Lvl (test code = Potassium 4.2 3.5-5.1 Lvl) [facility] [employer] [id number] 00:36:00 Test Item Value Reference Range Interpretation Comments Chloride Lvl (test code = Chloride Lvl) 100 95-109 [facility]2022-07-07 00:36:00 Test Item Value Reference Range Interpretation Comments CO2 (test code = CO2) 27 24-32 [facility] [id number] 00:36:00 Test Item Value Reference Range Interpretation Comments Calcium Lvl (test code = Calcium Lvl) 8.9 8.5-10.5 [facility] [id number] 00:36:00 Test Item Value Reference Range Interpretation Comments AGAP (test code = AGAP) 13.2 10.0-20.0 [facility] [id number] 00:36:00 Test Item Value Reference Range Interpretation Comments eGFR (test code = eGFR) 10 [facility] HospitalMstoaarXVUWLGWVNQ5943-90-99 00:36:00 Test Item Value Reference Range Interpretation Comments WBC (test code = WBC) 2.5 3.7-10.4 [facility] HospitalYrvgaoaTLUYEOPTAX6921-34-44 00:36:00 Test Item Value Reference Range Interpretation Comments RBC (test code = RBC) 1.97 4.70-6.10 [facility] HospitalDtxgtnfXGARGEMKVI4142-18-96 00:36:00 Test Item Value Reference Range Interpretation Comments Hgb (test code = Hgb) 7.1 14.0-18.0 [facility] HospitalBbnilbgMLXMJHZSQZ0606-07-45 00:36:00 Test Item Value Reference Range Interpretation Comments Hct (test code = Hct) 20.6 42.0-54.0 [facility] HospitalTotvphgXFPOYHMWMR6939-02-81 00:36:00 Test Item Value Reference Range Interpretation Comments MCV (test code = MCV) 105.0 80.0-94.0 [facility] HospitalHzbkzxvKMGCEWQBAZ8692-95-70 00:36:00 Test Item Value Reference Range Interpretation Comments MCH (test code = MCH) 36.2 pg 27.0-31.0 [facility] HospitalNqmwfuyYCOVITMCJI1225-36-56 00:36:00 Test Item Value Reference Range Interpretation Comments MCHC (test code = MCHC) 34.5 32.0-36.0 [facility] HospitalCzxjdsmUPVITNRGPM4251-59-56 00:36:00 Test Item Value Reference Range Interpretation Comments RDW (test code = RDW) 21.1 11.5-14.5 [facility] [id number] 00:36:00 Test Item Value Reference Range Interpretation Comments ABO/Rh (test code = ABO/Rh) [facility] [id number] 00:36:00 Test Item Value Reference Range Interpretation Comments Antibody Scrn (test Negative (12/03/21 7:36 code = Antibody Scrn) PM) [facility] [id number] 00:36:00 Test Item Value Reference Range Interpretation Comments Glucose Lvl (test code = Glucose Lvl) 143 70-99 [facility]2022-07-07 00:36:00 Test Item Value Reference Range Interpretation Comments BUN (test code = BUN) 39 7-22 [facility]2022-07-07 00:36:00 Test Item Value Reference Range Interpretation Comments Creatinine Lvl (test code = Creatinine 5.46 0.50-1.40 Lvl) [facility]2022-07-07 00:36:00 Test Item Value Reference Range Interpretation Comments Sodium Lvl (test code = Sodium Lvl) 136 135-145 [facility]2022-07-07 00:36:00 Test Item Value Reference Range Interpretation Comments Potassium Lvl (test code = Potassium 4.2 3.5-5.1 Lvl) [facility]2022-07-07 00:36:00 Test Item Value Reference Range Interpretation Comments Chloride Lvl (test code = Chloride Lvl) 100 95-109 [facility]2022-07-07 00:36:00 Test Item Value Reference Range Interpretation Comments CO2 (test code = CO2) 27 24-32 [facility]2022-07-07 00:36:00 Test Item Value Reference Range Interpretation Comments Calcium Lvl (test code = Calcium Lvl) 8.9 8.5-10.5 [facility] HospitalKqsppjnKGLLKXNCRE8792-92-23 00:36:00 Test Item Value Reference Range Interpretation Comments Platelet (test code = Platelet) 136 133-450 [facility]2022-07-07 00:36:00 Test Item Value Reference Range Interpretation Comments AGAP (test code = AGAP) 13.2 10.0-20.0 [facility]2022-07-07 00:36:00 Test Item Value Reference Range Interpretation Comments eGFR (test code = eGFR) 10 [facility] HospitalVyctlepRTTYBCLWBY8462-97-70 00:36:00 Test Item Value Reference Range Interpretation Comments WBC (test code = WBC) 2.5 3.7-10.4 [facility] HospitalWzjxudrGFAIAYZDNG3001-91-22 00:36:00 Test Item Value Reference Range Interpretation Comments RBC (test code = RBC) 1.97 4.70-6.10 [facility] HospitalRklburdNKFOZIFRLM6817-55-59 00:36:00 Test Item Value Reference Range Interpretation Comments Hgb (test code = Hgb) 7.1 14.0-18.0 [facility] HospitalWoffojlIHJTVWTFXA3776-27-48 00:36:00 Test Item Value Reference Range Interpretation Comments Hct (test code = Hct) 20.6 42.0-54.0 [facility] HospitalKbykqrqYBOIJQLKFS3745-37-73 00:36:00 Test Item Value Reference Range Interpretation Comments MCV (test code = MCV) 105.0 80.0-94.0 [facility] HospitalAuchoapRTQBOKTLCE6840-01-06 00:36:00 Test Item Value Reference Range Interpretation Comments MCH (test code = MCH) 36.2 pg 27.0-31.0 [facility] HospitalBzamnekINJGWKMJRL3864-87-99 00:36:00 Test Item Value Reference Range Interpretation Comments MCHC (test code = MCHC) 34.5 32.0-36.0 [facility] HospitalGhhbtcqUUPHUAKPNX2159-39-82 00:36:00 Test Item Value Reference Range Interpretation Comments RDW (test code = RDW) 21.1 11.5-14.5 [facility] HospitalQiobhhzRHIYNXEKND6312-73-30 00:36:00 Test Item Value Reference Range Interpretation Comments MPV (test code = MPV) 8.7 7.4-10.4 [facility] HospitalFqvdobbJFBMDPRUFU1328-61-10 00:36:00 Test Item Value Reference Range Interpretation Comments Platelet (test code = Platelet) 136 133-450 [facility] HospitalSaikuhcMCSLZPTMXW4338-30-01 00:36:00 Test Item Value Reference Range Interpretation Comments MPV (test code = MPV) 8.7 7.4-10.4 [facility] HospitalEpbcmdjRNZBWUKLPH0835-30-39 00:36:00 Test Item Value Reference Range Interpretation Comments Segs (test code = Segs) 59.5 45.0-75.0 [facility] HospitalLbljbubSFEPGJDGOV7765-40-40 00:36:00 Test Item Value Reference Range Interpretation Comments Lymphocytes (test code = Lymphocytes) 25.2 20.0-40.0 [facility] HospitalLoryiikJPBIHVBPZW7598-92-98 00:36:00 Test Item Value Reference Range Interpretation Comments Monocytes (test code = Monocytes) 12.5 2.0-12.0 [facility] HospitalLqyhbfiKESJUJAVFR5269-20-02 00:36:00 Test Item Value Reference Range Interpretation Comments Eosinophils (test code = 2.1 See_Comment [A utomated message] The Eosinophils) system which ge nerated this result tra nsmitted reference range : <=4.0. The reference r samantha was not used to int erpret this result as normal/abnormal . [facility] HospitalVepovalUPDLUELILG5628-56-32 00:36:00 Test Item Value Reference Range Interpretation Comments Basophils (test code = 0.7 See_Comment [Aut omated message] The Basophils) system which ge nerated this result tra nsmitted reference range : <=1.0. The reference r samantha was not used to int erpret this result as normal/abnormal . [facility] HospitalIjbmnevSBTJWJGIUD1203-05-54 00:36:00 Test Item Value Reference Range Interpretation Comments Neutrophils # (test code = Neutrophils 1.5 1.5-8.1 #) [facility] HospitalRdvscviQHJLSVWBFA3167-52-61 00:36:00 Test Item Value Reference Range Interpretation Comments Lymphocytes # (test code = Lymphocytes 0.6 1.0-5.5 #) [facility] HospitalBlaoqfyRMDPHFLYAO1090-72-19 00:36:00 Test Item Value Reference Range Interpretation Comments Monocytes # (test code 0.3 See_Comment [Aut omated message] The = Monocytes #) system which generated this result tra nsmitted reference range : <=0.8. The reference r samantha was not used to int erpret this result as normal/abnormal . [facility] HospitalBkcsuzjODIAGWXSRC5649-67-93 00:36:00 Test Item Value Reference Range Interpretation Comments Segs (test code = Segs) 59.5 45.0-75.0 [facility] HospitalMjrobwoXSMVDLSTER1107-41-12 00:36:00 Test Item Value Reference Range Interpretation Comments Eosinophils # (test code 0.1 See_Comment [A utomated message] The = Eosinophils #) system whic h generated this result tra nsmitted reference range : <=0.5. The reference r samantha was not used to int erpret this result as normal/abnormal . [facility] HospitalQntstosFLURCUCWBX7732-38-97 00:36:00 Test Item Value Reference Range Interpretation Comments Lymphocytes (test code = Lymphocytes) 25.2 20.0-40.0 [facility] HospitalDvvaggkYRJUKGLUZB2706-74-02 00:36:00 Test Item Value Reference Range Interpretation Comments Monocytes (test code = Monocytes) 12.5 2.0-12.0 [facility] HospitalHkoloidFVUKSQTBIE9229-00-97 00:36:00 Test Item Value Reference Range Interpretation Comments Eosinophils (test code = 2.1 See_Comment [A utomated message] The Eosinophils) system which ge nerated this result tra nsmitted reference range : <=4.0. The reference r samantha was not used to int erpret this result as normal/abnormal . [facility] HospitalXlatotyWVSQPWZZWW4708-80-45 00:36:00 Test Item Value Reference Range Interpretation Comments Basophils (test code = 0.7 See_Comment [Aut omated message] The Basophils) system which ge nerated this result tra nsmitted reference range : <=1.0. The reference r samantha was not used to int erpret this result as normal/abnormal . [facility] HospitalRrrafpkJHUJSNTBJE5652-79-39 00:36:00 Test Item Value Reference Range Interpretation Comments Neutrophils # (test code = Neutrophils 1.5 1.5-8.1 #) [facility] HospitalSxuegasHLMTWMTPJE4329-80-81 00:36:00 Test Item Value Reference Range Interpretation Comments Lymphocytes # (test code = Lymphocytes 0.6 1.0-5.5 #) [facility] HospitalAdwhkbdEBJMRDOEVQ5974-55-42 00:36:00 Test Item Value Reference Range Interpretation Comments Monocytes # (test code 0.3 See_Comment [Aut omated message] The = Monocytes #) system which generated this result tra nsmitted reference range : <=0.8. The reference r samantha was not used to int erpret this result as normal/abnormal . [facility] HospitalKephahqTQWSFLMLTD8083-36-94 00:36:00 Test Item Value Reference Range Interpretation Comments Eosinophils # (test code 0.1 See_Comment [A utomated message] The = Eosinophils #) system whic h generated this result tra nsmitted reference range : <=0.5. The reference r samantha was not used to int erpret this result as normal/abnormal . [facility] GEHATUQ2453-89-96 00:36:00 Test Item Value Reference Range Interpretation Comments ABO/Rh (test code = ABO/Rh) AB POS [facility] [id number] 00:36:00 Test Item Value Reference Range Interpretation Comments Antibody Scrn (test Negative (12/03/21 7:36 code = Antibody Scrn) PM) [facility]2022-07-07 00:36:00 Test Item Value Reference Range Interpretation Comments Glucose Lvl (test code = Glucose Lvl) 143 70-99 [facility]2022-07-07 00:36:00 Test Item Value Reference Range Interpretation Comments BUN (test code = BUN) 39 7-22 [facility]2022-07-07 00:36:00 Test Item Value Reference Range Interpretation Comments Creatinine Lvl (test code = Creatinine 5.46 0.50-1.40 Lvl) [facility]2022-07-07 00:36:00 Test Item Value Reference Range Interpretation Comments Sodium Lvl (test code = Sodium Lvl) 136 135-145 [facility] [id number] 00:36:00 Test Item Value Reference Range Interpretation Comments Potassium Lvl (test code = Potassium 4.2 3.5-5.1 Lvl) [facility] [id number] 00:36:00 Test Item Value Reference Range Interpretation Comments Chloride Lvl (test code = Chloride Lvl) 100 95-109 [facility] [id number] 00:36:00 Test Item Value Reference Range Interpretation Comments CO2 (test code = CO2) 27 24-32 [facility] [id number] 00:36:00 Test Item Value Reference Range Interpretation Comments Calcium Lvl (test code = Calcium Lvl) 8.9 8.5-10.5 [facility] [id number] 00:36:00 Test Item Value Reference Range Interpretation Comments AGAP (test code = AGAP) 13.2 10.0-20.0 [facility] [id number] 00:36:00 Test Item Value Reference Range Interpretation Comments eGFR (test code = eGFR) 10 [facility]D9346[facility]:36:00 Test Item Value Reference Range Interpretation Comments WBC (test code = WBC) 2.5 3.7-10.4 [facility] HospitalUstuiscLOYUKFVJAS5339-44-71 00:36:00 Test Item Value Reference Range Interpretation Comments RBC (test code = RBC) 1.97 4.70-6.10 [facility] HospitalTbzzvxeYOFGJZZLGW4517-64-30 00:36:00 Test Item Value Reference Range Interpretation Comments Hgb (test code = Hgb) 7.1 14.0-18.0 [facility] HospitalSbeqwypUHSWHVTXAI8203-80-46 00:36:00 Test Item Value Reference Range Interpretation Comments Hct (test code = Hct) 20.6 42.0-54.0 [facility] HospitalJlqvzgcDWSWVVAFGR1556-41-69 00:36:00 Test Item Value Reference Range Interpretation Comments MCV (test code = MCV) 105.0 80.0-94.0 [facility] HospitalRijyxmdBXDLMHTVDG6434-32-04 00:36:00 Test Item Value Reference Range Interpretation Comments MCH (test code = MCH) 36.2 pg 27.0-31.0 [facility] HospitalGsflmwsWENVAUORWG2076-36-33 00:36:00 Test Item Value Reference Range Interpretation Comments MCHC (test code = MCHC) 34.5 32.0-36.0 [facility] HospitalSwfqloyUCJIDYEVDW9107-88-28 00:36:00 Test Item Value Reference Range Interpretation Comments RDW (test code = RDW) 21.1 11.5-14.5 [facility] HospitalKmypamrGITVCZIWGH3570-05-29 00:36:00 Test Item Value Reference Range Interpretation Comments Platelet (test code = Platelet) 136 133-450 [facility] HospitalRijzlaeEFQGWSRMRM5858-85-85 00:36:00 Test Item Value Reference Range Interpretation Comments MPV (test code = MPV) 8.7 7.4-10.4 [facility] HospitalLqaorgrJDPDLWCWOV3282-13-87 00:36:00 Test Item Value Reference Range Interpretation Comments Segs (test code = Segs) 59.5 45.0-75.0 [facility] HospitalRzblqhpNORTRRIXWA3571-57-99 00:36:00 Test Item Value Reference Range Interpretation Comments Lymphocytes (test code = Lymphocytes) 25.2 20.0-40.0 [facility] HospitalIythqvxKHJJQEGOYC5896-54-57 00:36:00 Test Item Value Reference Range Interpretation Comments Monocytes (test code = Monocytes) 12.5 2.0-12.0 [facility] HospitalFxqmdcwILPVJXNJTC2387-54-74 00:36:00 Test Item Value Reference Range Interpretation Comments Eosinophils (test code = 2.1 See_Comment [A utomated message] The Eosinophils) system which ge nerated this result tra nsmitted reference range : <=4.0. The reference r samantha was not used to int erpret this result as normal/abnormal . [facility] HospitalKtlvipwROHTHBWJZB8183-91-83 00:36:00 Test Item Value Reference Range Interpretation Comments Basophils (test code = 0.7 See_Comment [Aut omated message] The Basophils) system which ge nerated this result tra nsmitted reference range : <=1.0. The reference r samantha was not used to int erpret this result as normal/abnormal . [facility] HospitalPaoutmgKSDQRVOSMQ1615-40-24 00:36:00 Test Item Value Reference Range Interpretation Comments Neutrophils # (test code = Neutrophils 1.5 1.5-8.1 #) [facility] HospitalQqgovfxTESVYEZSHU8977-44-05 00:36:00 Test Item Value Reference Range Interpretation Comments Lymphocytes # (test code = Lymphocytes 0.6 1.0-5.5 #) [facility] HospitalJbltjzgBGKQVOSOCT5380-32-09 00:36:00 Test Item Value Reference Range Interpretation Comments Monocytes # (test code 0.3 See_Comment [Aut omated message] The = Monocytes #) system which generated this result tra nsmitted reference range : <=0.8. The reference r samantha was not used to int erpret this result as normal/abnormal . [facility] HospitalHjryrytXMDVNAJVOU9482-28-33 00:36:00 Test Item Value Reference Range Interpretation Comments Eosinophils # (test code 0.1 See_Comment [A utomated message] The = Eosinophils #) system whic h generated this result tra nsmitted reference range : <=0.5. The reference r samantha was not used to int erpret this result as normal/abnormal . [facility] [id number] 00:36:00 Test Item Value Reference Range Interpretation Comments ABO/Rh (test code = ABO/Rh) AB POS [facility] [id number] 00:36:00 Test Item Value Reference Range Interpretation Comments Antibody Scrn (test Negative (12/03/21 7:36 code = Antibody Scrn) PM) [facility] HospitalannUNC [facility] APPALACHIANDSCTM0774-25-62 00:36:00 Test Item Value Reference Range Interpretation Comments Glucose Lvl (test code = Glucose Lvl) 143 70-99 [place] 074992-07-07 00:36:00 Test Item Value Reference Range Interpretation Comments BUN (test code = BUN) 39 7-22 [place] 074992-07-07 00:36:00 Test Item Value Reference Range Interpretation Comments Creatinine Lvl (test code = Creatinine 5.46 0.50-1.40 Lvl) [place] 074992-07-07 00:36:00 Test Item Value Reference Range Interpretation Comments Sodium Lvl (test code = Sodium Lvl) 136 135-145 [place] 074992-07-07 00:36:00 Test Item Value Reference Range Interpretation Comments Potassium Lvl (test code = Potassium 4.2 3.5-5.1 Lvl) [place] 074992-07-07 00:36:00 Test Item Value Reference Range Interpretation Comments Chloride Lvl (test code = Chloride Lvl) 100 95-109 [place] 074992-07-07 00:36:00 Test Item Value Reference Range Interpretation Comments CO2 (test code = CO2) 27 24-32 [place] 074992-07-07 00:36:00 Test Item Value Reference Range Interpretation Comments Calcium Lvl (test code = Calcium Lvl) 8.9 8.5-10.5 [place] 074992-07-07 00:36:00 Test Item Value Reference Range Interpretation Comments AGAP (test code = AGAP) 13.2 10.0-20.0 [place] 074992-07-07 00:36:00 Test Item Value Reference Range Interpretation Comments eGFR (test code = eGFR) 10 [place] 152042-07-07 00:36:00 Test Item Value Reference Range Interpretation Comments WBC (test code = WBC) 2.5 3.7-10.4 [place] 152042-07-07 00:36:00 Test Item Value Reference Range Interpretation Comments RBC (test code = RBC) 1.97 4.70-6.10 [place] 152042-07-07 00:36:00 Test Item Value Reference Range Interpretation Comments Hgb (test code = Hgb) 7.1 14.0-18.0 [place] 152042-07-07 00:36:00 Test Item Value Reference Range Interpretation Comments Hct (test code = Hct) 20.6 42.0-54.0 [place] 152042-07-07 00:36:00 Test Item Value Reference Range Interpretation Comments MCV (test code = MCV) 105.0 80.0-94.0 [facility] HospitalBesirabPVZNYBHDSK9969-80-46 00:36:00 Test Item Value Reference Range Interpretation Comments MCH (test code = MCH) 36.2 pg 27.0-31.0 [place] 152042-07-07 00:36:00 Test Item Value Reference Range Interpretation Comments MCHC (test code = MCHC) 34.5 32.0-36.0 [place] 152042-07-07 00:36:00 Test Item Value Reference Range Interpretation Comments RDW (test code = RDW) 21.1 11.5-14.5 [place] 152042-07-07 00:36:00 Test Item Value Reference Range Interpretation Comments Platelet (test code = Platelet) 136 133-450 [facility] HospitalAppzbljTHLVQIXRTQ4588-88-63 00:36:00 Test Item Value Reference Range Interpretation Comments MPV (test code = MPV) 8.7 7.4-10.4 [place] 152042-07-07 00:36:00 Test Item Value Reference Range Interpretation Comments Segs (test code = Segs) 59.5 45.0-75.0 [facility] HospitalQvnusonPYJAWFZNDU4459-72-34 00:36:00 Test Item Value Reference Range Interpretation Comments Lymphocytes (test code = Lymphocytes) 25.2 20.0-40.0 [place] 152042-07-07 00:36:00 Test Item Value Reference Range Interpretation Comments Monocytes (test code = Monocytes) 12.5 2.0-12.0 [place] 152042-07-07 00:36:00 Test Item Value Reference Range Interpretation Comments Eosinophils (test code = 2.1 See_Comment [A utomated message] The Eosinophils) system which ge nerated this result tra nsmitted reference range : <=4.0. The reference r samantha was not used to int erpret this result as normal/abnormal . [facility] HospitalKmfsjxcDKFKPJJIED0824-66-58 00:36:00 Test Item Value Reference Range Interpretation Comments Basophils (test code = 0.7 See_Comment [Aut omated message] The Basophils) system which ge nerated this result tra nsmitted reference range : <=1.0. The reference r samantha was not used to int erpret this result as normal/abnormal . [facility] HospitalOykzmrmGRYNPHWWRI7037-68-89 00:36:00 Test Item Value Reference Range Interpretation Comments Neutrophils # (test code = Neutrophils 1.5 1.5-8.1 #) [facility] HospitalQnetvbzTORKSAARKM5893-39-24 00:36:00 Test Item Value Reference Range Interpretation Comments Lymphocytes # (test code = Lymphocytes 0.6 1.0-5.5 #) [facility] HospitalAvfenuzCVBWTFPLWW9553-91-58 00:36:00 Test Item Value Reference Range Interpretation Comments Monocytes # (test code 0.3 See_Comment [Aut omated message] The = Monocytes #) system which generated this result tra nsmitted reference range : <=0.8. The reference r samantha was not used to int erpret this result as normal/abnormal . [facility] HospitalZubfuxiQTKJKBWSAB3592-52-24 00:36:00 Test Item Value Reference Range Interpretation Comments Eosinophils # (test code 0.1 See_Comment [A utomated message] The = Eosinophils #) system whic h generated this result tra nsmitted reference range : <=0.5. The reference r samantha was not used to int erpret this result as normal/abnormal . [facility] [id number] 00:36:00 Test Item Value Reference Range Interpretation Comments ABO/Rh (test code = ABO/Rh) AB POS [facility] [id number] 00:36:00 Test Item Value Reference Range Interpretation Comments Antibody Scrn (test Negative (12/03/21 7:36 code = Antibody Scrn) PM) [facility] [id number] 00:36:00 Test Item Value Reference Range Interpretation Comments Glucose Lvl (test code = Glucose Lvl) 143 70-99 [facility] [id number] 00:36:00 Test Item Value Reference Range Interpretation Comments BUN (test code = BUN) 39 7-22 [facility] [id number] 00:36:00 Test Item Value Reference Range Interpretation Comments Creatinine Lvl (test code = Creatinine 5.46 0.50-1.40 Lvl) [facility]2022-07-07 00:36:00 Test Item Value Reference Range Interpretation Comments Sodium Lvl (test code = Sodium Lvl) 136 135-145 [place] 074992-07-07 00:36:00 Test Item Value Reference Range Interpretation Comments Potassium Lvl (test code = Potassium 4.2 3.5-5.1 Lvl) [place] 074992-07-07 00:36:00 Test Item Value Reference Range Interpretation Comments Chloride Lvl (test code = Chloride Lvl) 100 95-109 [place] 074992-07-07 00:36:00 Test Item Value Reference Range Interpretation Comments CO2 (test code = CO2) 27 24-32 [place] 074992-07-07 00:36:00 Test Item Value Reference Range Interpretation Comments Calcium Lvl (test code = Calcium Lvl) 8.9 8.5-10.5 [place] 074992-07-07 00:36:00 Test Item Value Reference Range Interpretation Comments AGAP (test code = AGAP) 13.2 10.0-20.0 [place] 074992-07-07 00:36:00 Test Item Value Reference Range Interpretation Comments eGFR (test code = eGFR) 10 [facility] HospitalGfcffuzVVACPLEYOZ9236-61-05 00:36:00 Test Item Value Reference Range Interpretation Comments WBC (test code = WBC) 2.5 3.7-10.4 [place] 152042-07-07 00:36:00 Test Item Value Reference Range Interpretation Comments RBC (test code = RBC) 1.97 4.70-6.10 [place] 152042-07-07 00:36:00 Test Item Value Reference Range Interpretation Comments Hgb (test code = Hgb) 7.1 14.0-18.0 [place] 152042-07-07 00:36:00 Test Item Value Reference Range Interpretation Comments Hct (test code = Hct) 20.6 42.0-54.0 [place] 152042-07-07 00:36:00 Test Item Value Reference Range Interpretation Comments MCV (test code = MCV) 105.0 80.0-94.0 [place] 152042-07-07 00:36:00 Test Item Value Reference Range Interpretation Comments MCH (test code = MCH) 36.2 pg 27.0-31.0 [facility] HospitalDgdyacbZXYWAYTEMB2058-71-10 00:36:00 Test Item Value Reference Range Interpretation Comments MCHC (test code = MCHC) 34.5 32.0-36.0 [facility] HospitalWcwwmblPYAWJDMMUC4197-97-94 00:36:00 Test Item Value Reference Range Interpretation Comments RDW (test code = RDW) 21.1 11.5-14.5 [facility] HospitalUsdzpodVKHPXKBGYL1648-60-68 00:36:00 Test Item Value Reference Range Interpretation Comments Platelet (test code = Platelet) 136 133-450 [facility] HospitalIenofgfPKODAFLHFS1108-51-33 00:36:00 Test Item Value Reference Range Interpretation Comments MPV (test code = MPV) 8.7 7.4-10.4 [facility] HospitalWihetfdKZNZNQDIHV8171-88-74 00:36:00 Test Item Value Reference Range Interpretation Comments Segs (test code = Segs) 59.5 45.0-75.0 [facility] HospitalQrglssgSHNSUPBTIJ1658-81-43 00:36:00 Test Item Value Reference Range Interpretation Comments Lymphocytes (test code = Lymphocytes) 25.2 20.0-40.0 [facility] [facility]4747-00-27 00:36:00 Test Item Value Reference Range Interpretation Comments Monocytes (test code = Monocytes) 12.5 2.0-12.0 [facility]yzczkgRMORQNWYSG2811-11-39 00:36:00 Test Item Value Reference Range Interpretation Comments Eosinophils (test code = 2.1 See_Comment [A utomated message] The Eosinophils) system which ge nerated this result tra nsmitted reference range : <=4.0. The reference r samantha was not used to int erpret this result as normal/abnormal . [facility] HospitalDzmlcgnVTIRABJJZL3544-74-12 00:36:00 Test Item Value Reference Range Interpretation Comments Basophils (test code = 0.7 See_Comment [Aut omated message] The Basophils) system which ge nerated this result tra nsmitted reference range : <=1.0. The reference r samantha was not used to int erpret this result as normal/abnormal . [facility] HospitalWpybjsgMRCSLCPJAA0287-70-51 00:36:00 Test Item Value Reference Range Interpretation Comments Neutrophils # (test code = Neutrophils 1.5 1.5-8.1 #) [facility]Sij[facility]fdBKFKENPIIP5073-69-79 00:36:00 Test Item Value Reference Range Interpretation Comments Lymphocytes # (test code = Lymphocytes 0.6 1.0-5.5 #) [facility] HospitalQdeafifTGTIXNUKHI5121-62-04 00:36:00 Test Item Value Reference Range Interpretation Comments Monocytes # (test code 0.3 See_Comment [Aut omated message] The = Monocytes #) system which generated this result tra nsmitted reference range : <=0.8. The reference r samantha was not used to int erpret this result as normal/abnormal . [facility]XsxcmabPKNFZMSVFL7527-94-83 00:36:00 Test Item Value Reference Range Interpretation Comments Eosinophils # (test code 0.1 See_Comment [A utomated message] The = Eosinophils #) system whic h generated this result tra nsmitted reference range : <=0.5. The reference r samantha was not used to int erpret this result as normal/abnormal . [facility] [employer] [id number] 00:36:00 Test Item Value Reference Range Interpretation Comments ABO/Rh (test code = ABO/Rh) AB POS [facility] [employer] [id number] 00:36:00 Test Item Value Reference Range Interpretation Comments Antibody Scrn (test Negative (12/03/21 7:36 code = Antibody Scrn) PM) [facility] [employer] [id number] 00:36:00 Test Item Value Reference Range Interpretation Comments Glucose Lvl (test code = Glucose Lvl) 143 70-99 [facility] [employer] [id number] 00:36:00 Test Item Value Reference Range Interpretation Comments BUN (test code = BUN) 39 7-22 [facility] [employer] [id number] 00:36:00 Test Item Value Reference Range Interpretation Comments Creatinine Lvl (test code = Creatinine 5.46 0.50-1.40 Lvl) [facility] [employer] [id number] 00:36:00 Test Item Value Reference Range Interpretation Comments Sodium Lvl (test code = Sodium Lvl) 136 135-145 [facility] [employer] [id number] 00:36:00 Test Item Value Reference Range Interpretation Comments Potassium Lvl (test code = Potassium 4.2 3.5-5.1 Lvl) [facility]2022-07-07 00:36:00 Test Item Value Reference Range Interpretation Comments Chloride Lvl (test code = Chloride Lvl) 100 95-109 [place] 074992-07-07 00:36:00 Test Item Value Reference Range Interpretation Comments CO2 (test code = CO2) 27 24-32 [place] 074992-07-07 00:36:00 Test Item Value Reference Range Interpretation Comments Calcium Lvl (test code = Calcium Lvl) 8.9 8.5-10.5 [place] 074992-07-07 00:36:00 Test Item Value Reference Range Interpretation Comments AGAP (test code = AGAP) 13.2 10.0-20.0 [place] 074992-07-07 00:36:00 Test Item Value Reference Range Interpretation Comments eGFR (test code = eGFR) 10 [place] 152042-07-07 00:36:00 Test Item Value Reference Range Interpretation Comments WBC (test code = WBC) 2.5 3.7-10.4 [place] 152042-07-07 00:36:00 Test Item Value Reference Range Interpretation Comments RBC (test code = RBC) 1.97 4.70-6.10 [place] 152042-07-07 00:36:00 Test Item Value Reference Range Interpretation Comments Hgb (test code = Hgb) 7.1 14.0-18.0 [place] 152042-07-07 00:36:00 Test Item Value Reference Range Interpretation Comments Hct (test code = Hct) 20.6 42.0-54.0 [place] 152042-07-07 00:36:00 Test Item Value Reference Range Interpretation Comments MCV (test code = MCV) 105.0 80.0-94.0 [place] 152042-07-07 00:36:00 Test Item Value Reference Range Interpretation Comments MCH (test code = MCH) 36.2 pg 27.0-31.0 [place] 152042-07-07 00:36:00 Test Item Value Reference Range Interpretation Comments MCHC (test code = MCHC) 34.5 32.0-36.0 [place] 152042-07-07 00:36:00 Test Item Value Reference Range Interpretation Comments RDW (test code = RDW) 21.1 11.5-14.5 [place] 152042-07-07 00:36:00 Test Item Value Reference Range Interpretation Comments Platelet (test code = Platelet) 136 133-450 [place] 152042-07-07 00:36:00 Test Item Value Reference Range Interpretation Comments MPV (test code = MPV) 8.7 7.4-10.4 [place] 152042-07-07 00:36:00 Test Item Value Reference Range Interpretation Comments Segs (test code = Segs) 59.5 45.0-75.0 [place] 152042-07-07 00:36:00 Test Item Value Reference Range Interpretation Comments Lymphocytes (test code = Lymphocytes) 25.2 20.0-40.0 [place] 152042-07-07 00:36:00 Test Item Value Reference Range Interpretation Comments Monocytes (test code = Monocytes) 12.5 2.0-12.0 [place] 152042-07-07 00:36:00 Test Item Value Reference Range Interpretation Comments Eosinophils (test code = 2.1 See_Comment [A utomated message] The Eosinophils) system which ge nerated this result tra nsmitted reference range : <=4.0. The reference r samantha was not used to int erpret this result as normal/abnormal . [place] 152042-07-07 00:36:00 Test Item Value Reference Range Interpretation Comments Basophils (test code = 0.7 See_Comment [Aut omated message] The Basophils) system which ge nerated this result tra nsmitted reference range : <=1.0. The reference r samantha was not used to int erpret this result as normal/abnormal . [facility] HospitalIuxkjzrVNHCIPKDPE0884-10-01 00:36:00 Test Item Value Reference Range Interpretation Comments Neutrophils # (test code = Neutrophils 1.5 1.5-8.1 #) [facility] HospitalLxsfbwuLZMOZBJWQJ8352-55-41 00:36:00 Test Item Value Reference Range Interpretation Comments Lymphocytes # (test code = Lymphocytes 0.6 1.0-5.5 #) [place] 152042-07-07 00:36:00 Test Item Value Reference Range Interpretation Comments Monocytes # (test code 0.3 See_Comment [Aut omated message] The = Monocytes #) system which generated this result tra nsmitted reference range : <=0.8. The reference r samantha was not used to int erpret this result as normal/abnormal . [facility] HospitalPjwxbcyTHQEGCWRSZ6451-01-02 00:36:00 Test Item Value Reference Range Interpretation [...] (test code = Ferritin Lvl) 1543 22-275 [facility]2022-06-29 09:09:00 Test Item Value Reference Range Interpretation Comments Glucose Lvl (test code = Glucose Lvl) 288 70-99 [facility]2022-06-29 09:09:00 Test Item Value Reference Range Interpretation Comments BUN (test code = BUN) 40 7-22 [place] 074992-06-29 09:09:00 Test Item Value Reference Range Interpretation Comments Creatinine Lvl (test code = Creatinine 6.23 0.50-1.40 Lvl) [place] 074992-06-29 09:09:00 Test Item Value Reference Range Interpretation Comments Sodium Lvl (test code = Sodium Lvl) 134 135-145 [place] 074992-06-29 09:09:00 Test Item Value Reference Range Interpretation Comments Potassium Lvl (test code = Potassium 4.5 3.5-5.1 Lvl) [place] 074992-06-29 09:09:00 Test Item Value Reference Range Interpretation Comments Chloride Lvl (test code = Chloride Lvl) 96 95-109 [place] 074992-06-29 09:09:00 Test Item Value Reference Range Interpretation Comments CO2 (test code = CO2) 29 24-32 [place] 074992-06-29 09:09:00 Test Item Value Reference Range Interpretation Comments AGAP (test code = AGAP) 13.5 10.0-20.0 [place] 074992-06-29 09:09:00 Test Item Value Reference Range Interpretation Comments Calcium Lvl (test code = Calcium Lvl) 9.1 8.5-10.5 [place] 074992-06-29 09:09:00 Test Item Value Reference Range Interpretation Comments B/C Ratio (test code = B/C Ratio) 6 1 6-25 [place] 074992-06-29 09:09:00 Test Item Value Reference Range Interpretation Comments Total Protein (test code = Total 6.3 6.4-8.4 Protein) [place] 074992-06-29 09:09:00 Test Item Value Reference Range Interpretation Comments Albumin Lvl (test code = Albumin Lvl) 2.5 3.5-5.0 [place] 074992-06-29 09:09:00 Test Item Value Reference Range Interpretation Comments Globulin (test code = Globulin) 3.8 2.7-4.2 [place] 074992-06-29 09:09:00 Test Item Value Reference Range Interpretation Comments A/G Ratio (test code = A/G Ratio) 0.7 1 0.7-1.6 [place] [address]-06-29 09:09:00 Test Item Value Reference Range Interpretation Comments ALT (test code = ALT) 38 See_Comment [Auto mated message] The system which ge nerated this result transmit swathi reference range : <=65. The reference range was not used to interpr et this result as deny l/abnormal. [place] 074992-06-29 09:09:00 Test Item Value Reference Range Interpretation Comments AST (test code = AST) 31 See_Comment [Auto mated message] The system which ge nerated this result transmit swathi reference range : <=37. The reference range was not used to interpr et this result as deny l/abnormal. [place] 074992-06-29 09:09:00 Test Item Value Reference Range Interpretation Comments Alk Phos (test code = Alk Phos) 357 39-136 [place] 074992-06-29 09:09:00 Test Item Value Reference Range Interpretation Comments Bili Total (test code = Bili Total) 1.0 0.2-1.3 [place] 074992-06-29 09:09:00 Test Item Value Reference Range Interpretation Comments eGFR (test code = eGFR) 8 [facility]2022-06-29 09:09:00 Test Item Value Reference Range Interpretation Comments Magnesium Lvl (test code = Magnesium 2.0 1.8-2.4 Lvl) [facility]2022-06-29 09:09:00 Test Item Value Reference Range Interpretation Comments LDH (test code = LDH) 251 98-192 [facility]2022-06-29 09:09:00 Test Item Value Reference Range Interpretation Comments Procalcitonin Lvl (test 0.51 See_Comment [Au tomated message] code = Procalcitonin Lvl) e system which generated this result transmitted ref erence range: <=0.10. The reference range was not used to interpr et this result as normal/abnormal . [facility] HospitalLbdmhzhMZVYSQOQUU2556-60-67 09:09:00 Test Item Value Reference Range Interpretation Comments D-Dimer (test code = D-Dimer) 5.06 [facility] HospitalQparufqFLWXIAKEPY3272-20-25 09:09:00 Test Item Value Reference Range Interpretation Comments WBC (test code = WBC) 4.8 3.7-10.4 [facility] HospitalWyxkzgoRXMFIYFDDF3594-20-93 09:09:00 Test Item Value Reference Range Interpretation Comments RBC (test code = RBC) 2.14 4.70-6.10 [place] 152042-06-29 09:09:00 Test Item Value Reference Range Interpretation Comments Hgb (test code = Hgb) 7.7 14.0-18.0 [place] 152042-06-29 09:09:00 Test Item Value Reference Range Interpretation Comments Hct (test code = Hct) 22.8 42.0-54.0 [place] 152042-06-29 09:09:00 Test Item Value Reference Range Interpretation Comments MCV (test code = MCV) 106.5 80.0-94.0 [place] 152042-06-29 09:09:00 Test Item Value Reference Range Interpretation Comments MCH (test code = MCH) 36.1 pg 27.0-31.0 [facility] HospitalXrzcknzGVUKBCCUXW3320-44-70 09:09:00 Test Item Value Reference Range Interpretation Comments MCHC (test code = MCHC) 33.9 32.0-36.0 [place] [address]-06-29 09:09:00 Test Item Value Reference Range Interpretation Comments RDW (test code = RDW) 21.8 11.5-14.5 [place] 152042-06-29 09:09:00 Test Item Value Reference Range Interpretation Comments Platelet (test code = Platelet) 176 133-450 [place] 152042-06-29 09:09:00 Test Item Value Reference Range Interpretation Comments MPV (test code = MPV) 8.2 7.4-10.4 [place] 152042-06-29 09:09:00 Test Item Value Reference Range Interpretation Comments Segs (test code = Segs) 83.6 45.0-75.0 [place] 152042-06-29 09:09:00 Test Item Value Reference Range Interpretation Comments Lymphocytes (test code = Lymphocytes) 10.7 20.0-40.0 [place] 152042-06-29 09:09:00 Test Item Value Reference Range Interpretation Comments Monocytes (test code = Monocytes) 4.9 2.0-12.0 [facility] HospitalMcgnowkTKXMYSQRJJ7468-27-52 09:09:00 Test Item Value Reference Range Interpretation Comments Eosinophils (test code = 0.4 See_Comment [A utomated message] The Eosinophils) system which ge nerated this result tra nsmitted reference range : <=4.0. The reference r samantha was not used to int erpret this result as normal/abnormal . [facility] HospitalPxhvmtdVMDAVCWENZ5390-26-28 09:09:00 Test Item Value Reference Range Interpretation Comments Basophils (test code = 0.4 See_Comment [Aut omated message] The Basophils) system which ge nerated this result tra nsmitted reference range : <=1.0. The reference r samantha was not used to int erpret this result as normal/abnormal . [place] 152042-06-29 09:09:00 Test Item Value Reference Range Interpretation Comments Neutrophils # (test code = Neutrophils 4.0 1.5-8.1 #) [place] 152042-06-29 09:09:00 Test Item Value Reference Range Interpretation Comments Lymphocytes # (test code = Lymphocytes 0.5 1.0-5.5 #) [place] 152042-06-29 09:09:00 Test Item Value Reference Range Interpretation Comments Monocytes # (test code 0.2 See_Comment [Aut omated message] The = Monocytes #) system which generated this result tra nsmitted reference range : <=0.8. The reference r samantha was not used to int erpret this result as normal/abnormal . [facility] HospitalPuokivpQIANWDMGRX5606-69-66 09:09:00 Test Item Value Reference Range Interpretation Comments Macrocyte (test code = 1+ *ABN*(11/26/21 Macrocyte) 4:09 AM) [facility] HospitalYqqvhypNKTFPHMEQM8113-46-69 09:09:00 Test Item Value Reference Range Interpretation Comments Interleukin 6 (test code = Interleukin 14.71 6) [place] 115822-06-29 09:09:00 Test Item Value Reference Range Interpretation Comments C-REACTIVE PROTEIN (test code = 95.9 C-REACTIVE PROTEIN) [facility]2022-06-29 09:09:00 Test Item Value Reference Range Interpretation Comments Ferritin Lvl (test code = Ferritin Lvl) 1543 22-275 [facility]2022-06-29 09:09:00 Test Item Value Reference Range Interpretation Comments Glucose Lvl (test code = Glucose Lvl) 288 70-99 [place] 074992-06-29 09:09:00 Test Item Value Reference Range Interpretation Comments BUN (test code = BUN) 40 7-22 [facility]2022-06-29 09:09:00 Test Item Value Reference Range Interpretation Comments Creatinine Lvl (test code = Creatinine 6.23 0.50-1.40 Lvl) [facility]2022-06-29 09:09:00 Test Item Value Reference Range Interpretation Comments Sodium Lvl (test code = Sodium Lvl) 134 135-145 [facility]2022-06-29 09:09:00 Test Item Value Reference Range Interpretation Comments Potassium Lvl (test code = Potassium 4.5 3.5-5.1 Lvl) [facility]2022-06-29 09:09:00 Test Item Value Reference Range Interpretation Comments Chloride Lvl (test code = Chloride Lvl) 96 95-109 [place] 074992-06-29 09:09:00 Test Item Value Reference Range Interpretation Comments CO2 (test code = CO2) 29 24-32 [place] 074992-06-29 09:09:00 Test Item Value Reference Range Interpretation Comments AGAP (test code = AGAP) 13.5 10.0-20.0 [place] 074992-06-29 09:09:00 Test Item Value Reference Range Interpretation Comments Calcium Lvl (test code = Calcium Lvl) 9.1 8.5-10.5 [place] 074992-06-29 09:09:00 Test Item Value Reference Range Interpretation Comments B/C Ratio (test code = B/C Ratio) 6 1 6-25 [place] 074992-06-29 09:09:00 Test Item Value Reference Range Interpretation Comments Total Protein (test code = Total 6.3 6.4-8.4 Protein) [place] 074992-06-29 09:09:00 Test Item Value Reference Range Interpretation Comments Albumin Lvl (test code = Albumin Lvl) 2.5 3.5-5.0 [place] 074992-06-29 09:09:00 Test Item Value Reference Range Interpretation Comments Globulin (test code = Globulin) 3.8 2.7-4.2 [place] 074992-06-29 09:09:00 Test Item Value Reference Range Interpretation Comments A/G Ratio (test code = A/G Ratio) 0.7 1 0.7-1.6 [place] 074992-06-29 09:09:00 Test Item Value Reference Range Interpretation Comments ALT (test code = ALT) 38 See_Comment [Auto mated message] The system which ge nerated this result transmit swahti reference range : <=65. The reference range was not used to interpr et this result as deny l/abnormal. [facility]Equals[facility] [id number] 09:09:00 Test Item Value Reference Range Interpretation Comments AST (test code = AST) 31 See_Comment [Auto mated message] The system which ge nerated this result transmit swathi reference range : <=37. The reference range was not used to interpr et this result as deny l/abnormal. [facility] [id number] 09:09:00 Test Item Value Reference Range Interpretation Comments Alk Phos (test code = Alk Phos) 357 39-136 [facility] [id number] 09:09:00 Test Item Value Reference Range Interpretation Comments Bili Total (test code = Bili Total) 1.0 0.2-1.3 [place] 074992-06-29 09:09:00 Test Item Value Reference Range Interpretation Comments eGFR (test code = eGFR) 8 [facility]2022-06-29 09:09:00 Test Item Value Reference Range Interpretation Comments Magnesium Lvl (test code = Magnesium 2.0 1.8-2.4 Lvl) [place] 074992-06-29 09:09:00 Test Item Value Reference Range Interpretation Comments LDH (test code = LDH) 251 98-192 [facility]2022-06-29 09:09:00 Test Item Value Reference Range Interpretation Comments Procalcitonin Lvl (test 0.51 See_Comment [Au tomated message] code = Procalcitonin Lvl) e system which generated this result transmitted ref erence range: <=0.10. The reference range was not used to interpr et this result as normal/abnormal . [facility] HospitalHkafqjaLTQIWLTZJL0984-39-92 09:09:00 Test Item Value Reference Range Interpretation Comments D-Dimer (test code = D-Dimer) 5.06 [place] [address]-06-29 09:09:00 Test Item Value Reference Range Interpretation Comments WBC (test code = WBC) 4.8 3.7-10.4 [place] [address]-06-29 09:09:00 Test Item Value Reference Range Interpretation Comments RBC (test code = RBC) 2.14 4.70-6.10 [place] 152042-06-29 09:09:00 Test Item Value Reference Range Interpretation Comments Hgb (test code = Hgb) 7.7 14.0-18.0 [place] [address]-06-29 09:09:00 Test Item Value Reference Range Interpretation Comments Hct (test code = Hct) 22.8 42.0-54.0 [place] 152042-06-29 09:09:00 Test Item Value Reference Range Interpretation Comments MCV (test code = MCV) 106.5 80.0-94.0 [place] [address]-06-29 09:09:00 Test Item Value Reference Range Interpretation Comments MCH (test code = MCH) 36.1 pg 27.0-31.0 [facility] HospitalZucplcvYGQCJRZXGP1898-03-54 09:09:00 Test Item Value Reference Range Interpretation Comments MCHC (test code = MCHC) 33.9 32.0-36.0 [facility] HospitalZfzejpvVSWOMMIHGP1641-18-22 09:09:00 Test Item Value Reference Range Interpretation Comments RDW (test code = RDW) 21.8 11.5-14.5 [facility] HospitalTkpejffVKJIRYDOWZ3239-07-84 09:09:00 Test Item Value Reference Range Interpretation Comments Platelet (test code = Platelet) 176 133-450 [facility] HospitalAgpmvqxRMFTJPSYNH4276-77-84 09:09:00 Test Item Value Reference Range Interpretation Comments MPV (test code = MPV) 8.2 7.4-10.4 [facility] HospitalYeeyaruGLHNWPLNCI2090-34-26 09:09:00 Test Item Value Reference Range Interpretation Comments Segs (test code = Segs) 83.6 45.0-75.0 [facility] HospitalBnfgrumOWORANXOUX3132-88-48 09:09:00 Test Item Value Reference Range Interpretation Comments Lymphocytes (test code = Lymphocytes) 10.7 20.0-40.0 [facility] HospitalGhoojniCNRHMPXJFX7038-02-99 09:09:00 Test Item Value Reference Range Interpretation Comments Monocytes (test code = Monocytes) 4.9 2.0-12.0 [facility] HospitalAakgtvfIJYGNGBQOI5105-47-66 09:09:00 Test Item Value Reference Range Interpretation Comments Eosinophils (test code = 0.4 See_Comment [A utomated message] The Eosinophils) system which ge nerated this result tra nsmitted reference range : <=4.0. The reference r samantha was not used to int erpret this result as normal/abnormal . [facility] HospitalUjrorjiWYPYKJALQE8857-17-99 09:09:00 Test Item Value Reference Range Interpretation Comments Basophils (test code = 0.4 See_Comment [Aut omated message] The Basophils) system which ge nerated this result tra nsmitted reference range : <=1.0. The reference r samantha was not used to int erpret this result as normal/abnormal . [facility] HospitalTfnqynaDAYCACZRSF7626-25-56 09:09:00 Test Item Value Reference Range Interpretation Comments Neutrophils # (test code = Neutrophils 4.0 1.5-8.1 #) [place] 152042-06-29 09:09:00 Test Item Value Reference Range Interpretation Comments Lymphocytes # (test code = Lymphocytes 0.5 1.0-5.5 #) [place] 152042-06-29 09:09:00 Test Item Value Reference Range Interpretation Comments Monocytes # (test code 0.2 See_Comment [Aut omated message] The = Monocytes #) system which generated this result tra nsmitted reference range : <=0.8. The reference r samantha was not used to int erpret this result as normal/abnormal . [facility] HospitalWeernttMZDZUAWNDL2860-96-86 09:09:00 Test Item Value Reference Range Interpretation Comments Macrocyte (test code = 1+ *ABN*(11/26/21 Macrocyte) 4:09 AM) [place] 115822-06-29 09:09:00 Test Item Value Reference Range Interpretation Comments Interleukin 6 (test code = Interleukin 14.71 6) [place] 115822-06-29 09:09:00 Test Item Value Reference Range Interpretation Comments C-REACTIVE PROTEIN (test code = 95.9 C-REACTIVE PROTEIN) [facility]2022-06-29 09:09:00 Test Item Value Reference Range Interpretation Comments Ferritin Lvl (test code = Ferritin Lvl) 1543 22-275 [place] 074992-06-29 09:09:00 Test Item Value Reference Range Interpretation Comments Glucose Lvl (test code = Glucose Lvl) 288 70-99 [place] 074992-06-29 09:09:00 Test Item Value Reference Range Interpretation Comments BUN (test code = BUN) 40 7-22 [place] 074992-06-29 09:09:00 Test Item Value Reference Range Interpretation Comments Creatinine Lvl (test code = Creatinine 6.23 0.50-1.40 Lvl) [place] 074992-06-29 09:09:00 Test Item Value Reference Range Interpretation Comments Sodium Lvl (test code = Sodium Lvl) 134 135-145 [facility]2022-06-29 09:09:00 Test Item Value Reference Range Interpretation Comments Potassium Lvl (test code = Potassium 4.5 3.5-5.1 Lvl) [place] 074992-06-29 09:09:00 Test Item Value Reference Range Interpretation Comments Chloride Lvl (test code = Chloride Lvl) 96 95-109 [facility]2022-06-29 09:09:00 Test Item Value Reference Range Interpretation Comments CO2 (test code = CO2) 29 24-32 [place] 074992-06-29 09:09:00 Test Item Value Reference Range Interpretation Comments AGAP (test code = AGAP) 13.5 10.0-20.0 [place] 074992-06-29 09:09:00 Test Item Value Reference Range Interpretation Comments Calcium Lvl (test code = Calcium Lvl) 9.1 8.5-10.5 [place] 074992-06-29 09:09:00 Test Item Value Reference Range Interpretation Comments B/C Ratio (test code = B/C Ratio) 6 1 6-25 [place] 074992-06-29 09:09:00 Test Item Value Reference Range Interpretation Comments Total Protein (test code = Total 6.3 6.4-8.4 Protein) [place] 074992-06-29 09:09:00 Test Item Value Reference Range Interpretation Comments Albumin Lvl (test code = Albumin Lvl) 2.5 3.5-5.0 [place] 074992-06-29 09:09:00 Test Item Value Reference Range Interpretation Comments Globulin (test code = Globulin) 3.8 2.7-4.2 [place] 074992-06-29 09:09:00 Test Item Value Reference Range Interpretation Comments A/G Ratio (test code = A/G Ratio) 0.7 1 0.7-1.6 [place] 074992-06-29 09:09:00 Test Item Value Reference Range Interpretation Comments ALT (test code = ALT) 38 See_Comment [Auto mated message] The system which ge nerated this result transmit swathi reference range : <=65. The reference range was not used to interpr et this result as deny l/abnormal. [facility] [id number] 09:09:00 Test Item Value Reference Range Interpretation Comments AST (test code = AST) 31 See_Comment [Auto mated message] The system which ge nerated this result transmit swathi reference range : <=37. The reference range was not used to interpr et this result as deny l/abnormal. [place] 074992-06-29 09:09:00 Test Item Value Reference Range Interpretation Comments Alk Phos (test code = Alk Phos) 357 39-136 [place] 074992-06-29 09:09:00 Test Item Value Reference Range Interpretation Comments Bili Total (test code = Bili Total) 1.0 0.2-1.3 [place] 074992-06-29 09:09:00 Test Item Value Reference Range Interpretation Comments eGFR (test code = eGFR) 8 [facility]2022-06-29 09:09:00 Test Item Value Reference Range Interpretation Comments Magnesium Lvl (test code = Magnesium 2.0 1.8-2.4 Lvl) [place] 074992-06-29 09:09:00 Test Item Value Reference Range Interpretation Comments LDH (test code = LDH) 251 98-192 [place] 074992-06-29 09:09:00 Test Item Value Reference Range Interpretation Comments Procalcitonin Lvl (test 0.51 See_Comment [Au tomated message] code = Procalcitonin Lvl) e system which generated this result transmitted ref erence range: <=0.10. The reference range was not used to interpr et this result as normal/abnormal . [id number]:00 Test Item Value Reference Range Interpretation Comments D-Dimer (test code = D-Dimer) 5.06 [place] 152042-06-29 09:09:00 Test Item Value Reference Range Interpretation Comments WBC (test code = WBC) 4.8 3.7-10.4 [place] 152042-06-29 09:09:00 Test Item Value Reference Range Interpretation Comments RBC (test code = RBC) 2.14 4.70-6.10 [place] [address]-06-29 09:09:00 Test Item Value Reference Range Interpretation Comments Hgb (test code = Hgb) 7.7 14.0-18.0 [place] [address]-06-29 09:09:00 Test Item Value Reference Range Interpretation Comments Hct (test code = Hct) 22.8 42.0-54.0 [place] [address]-06-29 09:09:00 Test Item Value Reference Range Interpretation Comments MCV (test code = MCV) 106.5 80.0-94.0 [place] 152042-06-29 09:09:00 Test Item Value Reference Range Interpretation Comments MCH (test code = MCH) 36.1 pg 27.0-31.0 [place] 152042-06-29 09:09:00 Test Item Value Reference Range Interpretation Comments MCHC (test code = MCHC) 33.9 32.0-36.0 [place] 152042-06-29 09:09:00 Test Item Value Reference Range Interpretation Comments RDW (test code = RDW) 21.8 11.5-14.5 [place] 152042-06-29 09:09:00 Test Item Value Reference Range Interpretation Comments Platelet (test code = Platelet) 176 133-450 [place] 152042-06-29 09:09:00 Test Item Value Reference Range Interpretation Comments MPV (test code = MPV) 8.2 7.4-10.4 [place] 152042-06-29 09:09:00 Test Item Value Reference Range Interpretation Comments Segs (test code = Segs) 83.6 45.0-75.0 [place] 152042-06-29 09:09:00 Test Item Value Reference Range Interpretation Comments Lymphocytes (test code = Lymphocytes) 10.7 20.0-40.0 [place] 152042-06-29 09:09:00 Test Item Value Reference Range Interpretation Comments Monocytes (test code = Monocytes) 4.9 2.0-12.0 [place] 152042-06-29 09:09:00 Test Item Value Reference Range Interpretation Comments Eosinophils (test code = 0.4 See_Comment [A utomated message] The Eosinophils) system which ge nerated this result tra nsmitted reference range : <=4.0. The reference r samantha was not used to int erpret this result as normal/abnormal . [place] 152042-06-29 09:09:00 Test Item Value Reference Range Interpretation Comments Basophils (test code = 0.4 See_Comment [Aut omated message] The Basophils) system which ge nerated this result tra nsmitted reference range : <=1.0. The reference r samantha was not used to int erpret this result as normal/abnormal . [facility] HospitalEqpownfGVSQDRUUWH1324-44-64 09:09:00 Test Item Value Reference Range Interpretation Comments Neutrophils # (test code = Neutrophils 4.0 1.5-8.1 #) [facility] HospitalXsrtpcsZRVUFBRDQE3479-62-82 09:09:00 Test Item Value Reference Range Interpretation Comments Lymphocytes # (test code = Lymphocytes 0.5 1.0-5.5 #) [facility] HospitalEhrlnpoOKKNEAAWKV9847-15-62 09:09:00 Test Item Value Reference Range Interpretation Comments Monocytes # (test code 0.2 See_Comment [Aut omated message] The = Monocytes #) system which generated this result tra nsmitted reference range : <=0.8. The reference r samantha was not used to int erpret this result as normal/abnormal . [place] 152042-06-29 09:09:00 Test Item Value Reference Range Interpretation Comments Macrocyte (test code = 1+ *ABN*(11/26/21 Macrocyte) 4:09 AM) [place] 115822-06-29 09:09:00 Test Item Value Reference Range Interpretation Comments Interleukin 6 (test code = Interleukin 14.71 6) [place] 115822-06-29 09:09:00 Test Item Value Reference Range Interpretation Comments C-REACTIVE PROTEIN (test code = 95.9 C-REACTIVE PROTEIN) [facility]2022-06-29 09:09:00 Test Item Value Reference Range Interpretation Comments Ferritin Lvl (test code = Ferritin Lvl) 1543 22-275 [facility]2022-06-29 09:09:00 Test Item Value Reference Range Interpretation Comments Glucose Lvl (test code = Glucose Lvl) 288 70-99 [facility]2022-06-29 09:09:00 Test Item Value Reference Range Interpretation Comments BUN (test code = BUN) 40 7-22 [place] 074992-06-29 09:09:00 Test Item Value Reference Range Interpretation Comments Creatinine Lvl (test code = Creatinine 6.23 0.50-1.40 Lvl) [facility]2022-06-29 09:09:00 Test Item Value Reference Range Interpretation Comments Sodium Lvl (test code = Sodium Lvl) 134 135-145 [place] 074992-06-29 09:09:00 Test Item Value Reference Range Interpretation Comments Potassium Lvl (test code = Potassium 4.5 3.5-5.1 Lvl) [place] 074992-06-29 09:09:00 Test Item Value Reference Range Interpretation Comments Chloride Lvl (test code = Chloride Lvl) 96 95-109 [place] 074992-06-29 09:09:00 Test Item Value Reference Range Interpretation Comments CO2 (test code = CO2) 29 24-32 [place] 074992-06-29 09:09:00 Test Item Value Reference Range Interpretation Comments AGAP (test code = AGAP) 13.5 10.0-20.0 [place] 074992-06-29 09:09:00 Test Item Value Reference Range Interpretation Comments Calcium Lvl (test code = Calcium Lvl) 9.1 8.5-10.5 [place] 074992-06-29 09:09:00 Test Item Value Reference Range Interpretation Comments B/C Ratio (test code = B/C Ratio) 6 1 6-25 [place] 074992-06-29 09:09:00 Test Item Value Reference Range Interpretation Comments Total Protein (test code = Total 6.3 6.4-8.4 Protein) [place] 074992-06-29 09:09:00 Test Item Value Reference Range Interpretation Comments Albumin Lvl (test code = Albumin Lvl) 2.5 3.5-5.0 [place] 074992-06-29 09:09:00 Test Item Value Reference Range Interpretation Comments Globulin (test code = Globulin) 3.8 2.7-4.2 [place] 074992-06-29 09:09:00 Test Item Value Reference Range Interpretation Comments A/G Ratio (test code = A/G Ratio) 0.7 1 0.7-1.6 [place] 074992-06-29 09:09:00 Test Item Value Reference Range Interpretation Comments ALT (test code = ALT) 38 See_Comment [Auto mated message] The system which ge nerated this result transmit swathi reference range : <=65. The reference range was not used to interpr et this result as deny l/abnormal. [place] 074992-06-29 09:09:00 Test Item Value Reference Range Interpretation Comments AST (test code = AST) 31 See_Comment [Auto mated message] The system which ge nerated this result transmit swathi reference range : <=37. The reference range was not used to interpr et this result as deny l/abnormal. [facility]2022-06-29 09:09:00 Test Item Value Reference Range Interpretation Comments Alk Phos (test code = Alk Phos) 357 39-136 [facility] [id number] 09:09:00 Test Item Value Reference Range Interpretation Comments Bili Total (test code = Bili Total) 1.0 0.2-1.3 [place] 074992-06-29 09:09:00 Test Item Value Reference Range Interpretation Comments eGFR (test code = eGFR) 8 [place] 074992-06-29 09:09:00 Test Item Value Reference Range Interpretation Comments Magnesium Lvl (test code = Magnesium 2.0 1.8-2.4 Lvl) [place] 074992-06-29 09:09:00 Test Item Value Reference Range Interpretation Comments LDH (test code = LDH) 251 98-192 [facility] [id number] 09:09:00 Test Item Value Reference Range Interpretation Comments Procalcitonin Lvl (test 0.51 See_Comment [Au tomated message] code = Procalcitonin Lvl) Th e system which generated this result transmitted ref erence range: <=0.10. The reference range was not used to interpr et this result as normal/abnormal . [place] 152042-06-29 09:09:00 Test Item Value Reference Range Interpretation Comments D-Dimer (test code = D-Dimer) 5.06 [place] [address]-06-29 09:09:00 Test Item Value Reference Range Interpretation Comments WBC (test code = WBC) 4.8 3.7-10.4 [place] [address]-06-29 09:09:00 Test Item Value Reference Range Interpretation Comments RBC (test code = RBC) 2.14 4.70-6.10 [place] [address]-06-29 09:09:00 Test Item Value Reference Range Interpretation Comments Hgb (test code = Hgb) 7.7 14.0-18.0 [place] [address]-06-29 09:09:00 Test Item Value Reference Range Interpretation Comments Hct (test code = Hct) 22.8 42.0-54.0 [facility] HospitalUexouhmHQKLRYWJLX6135-16-34 09:09:00 Test Item Value Reference Range Interpretation Comments MCV (test code = MCV) 106.5 80.0-94.0 [facility] HospitalAtrurtaRQUVLNLNUU5116-50-92 09:09:00 Test Item Value Reference Range Interpretation Comments MCH (test code = MCH) 36.1 pg 27.0-31.0 [facility] HospitalWtphxzjOTKWMIDTHW4733-15-17 09:09:00 Test Item Value Reference Range Interpretation Comments MCHC (test code = MCHC) 33.9 32.0-36.0 [facility] HospitalHnhjhgdHOSPTFOLLM1954-10-05 09:09:00 Test Item Value Reference Range Interpretation Comments RDW (test code = RDW) 21.8 11.5-14.5 [facility] HospitalChqnthmPDLTSOMWTD5572-42-32 09:09:00 Test Item Value Reference Range Interpretation Comments Platelet (test code = Platelet) 176 133-450 [facility] HospitalXpliqblMLFDEIIZCW1541-74-17 09:09:00 Test Item Value Reference Range Interpretation Comments MPV (test code = MPV) 8.2 7.4-10.4 [facility] HospitalMquovrkXEDWGWGCAV4015-74-68 09:09:00 Test Item Value Reference Range Interpretation Comments Segs (test code = Segs) 83.6 45.0-75.0 [facility] HospitalBmzslpdZEAAGBLCVA5122-37-52 09:09:00 Test Item Value Reference Range Interpretation Comments Lymphocytes (test code = Lymphocytes) 10.7 20.0-40.0 [facility] HospitalJpjfqylXSQKDSCEFX1244-74-45 09:09:00 Test Item Value Reference Range Interpretation Comments Monocytes (test code = Monocytes) 4.9 2.0-12.0 [place] 152042-06-29 09:09:00 Test Item Value Reference Range Interpretation Comments Eosinophils (test code = 0.4 See_Comment [A utomated message] The Eosinophils) system which ge nerated this result tra nsmitted reference range : <=4.0. The reference r samantha was not used to int erpret this result as normal/abnormal . [facility] HospitalOyjgtanTRUFGQNXWN0643-00-07 09:09:00 Test Item Value Reference Range Interpretation Comments Basophils (test code = 0.4 See_Comment [Aut omated message] The Basophils) system which ge nerated this result tra nsmitted reference range : <=1.0. The reference r samantha was not used to int erpret this result as normal/abnormal . [facility] HospitalXeazkuaQGLYAVXKOI0464-83-75 09:09:00 Test Item Value Reference Range Interpretation Comments Neutrophils # (test code = Neutrophils 4.0 1.5-8.1 #) [facility] HospitalPvmvcpeXXIMZLQHHW0873-18-68 09:09:00 Test Item Value Reference Range Interpretation Comments Lymphocytes # (test code = Lymphocytes 0.5 1.0-5.5 #) [facility] HospitalHtbnvpeQIPBWAFLXL0296-95-18 09:09:00 Test Item Value Reference Range Interpretation Comments Monocytes # (test code 0.2 See_Comment [Aut omated message] The = Monocytes #) system which generated this result tra nsmitted reference range : <=0.8. The reference r samantha was not used to int erpret this result as normal/abnormal . [facility] HospitalNbpmanjLSTDEJCSUB0833-59-32 09:09:00 Test Item Value Reference Range Interpretation Comments Macrocyte (test code = 1+ *ABN*(11/26/21 Macrocyte) 4:09 AM) [facility] HospitalMghjozrTHHHBYBAWT3627-50-35 09:09:00 Test Item Value Reference Range Interpretation Comments Interleukin 6 (test code = Interleukin 14.71 6) [facility]wusyovLAJFKDYTXD8956-78-36 09:09:00 Test Item Value Reference Range Interpretation Comments C-REACTIVE PROTEIN (test code = 95.9 C-REACTIVE PROTEIN) [facility]2022-06-29 09:09:00 Test Item Value Reference Range Interpretation Comments Ferritin Lvl (test code = Ferritin Lvl) 1543 22-125 [facility]2022-06-29 09:09:00 Test Item Value Reference Range Interpretation Comments Glucose Lvl (test code = Glucose Lvl) 288 70-99 [facility]2022-06-29 09:09:00 Test Item Value Reference Range Interpretation Comments BUN (test code = BUN) 40 7-22 [facility]2022-06-29 09:09:00 Test Item Value Reference Range Interpretation Comments Creatinine Lvl (test code = Creatinine 6.23 0.50-1.40 Lvl) [place] 074992-06-29 09:09:00 Test Item Value Reference Range Interpretation Comments Sodium Lvl (test code = Sodium Lvl) 134 135-145 [place] 074992-06-29 09:09:00 Test Item Value Reference Range Interpretation Comments Potassium Lvl (test code = Potassium 4.5 3.5-5.1 Lvl) [place] 074992-06-29 09:09:00 Test Item Value Reference Range Interpretation Comments Chloride Lvl (test code = Chloride Lvl) 96 95-109 [place] 074992-06-29 09:09:00 Test Item Value Reference Range Interpretation Comments CO2 (test code = CO2) 29 24-32 [place] 074992-06-29 09:09:00 Test Item Value Reference Range Interpretation Comments AGAP (test code = AGAP) 13.5 10.0-20.0 [place] 074992-06-29 09:09:00 Test Item Value Reference Range Interpretation Comments Calcium Lvl (test code = Calcium Lvl) 9.1 8.5-10.5 [place] 074992-06-29 09:09:00 Test Item Value Reference Range Interpretation Comments B/C Ratio (test code = B/C Ratio) 6 1 6-25 [place] 074992-06-29 09:09:00 Test Item Value Reference Range Interpretation Comments Total Protein (test code = Total 6.3 6.4-8.4 Protein) [place] 074992-06-29 09:09:00 Test Item Value Reference Range Interpretation Comments Albumin Lvl (test code = Albumin Lvl) 2.5 3.5-5.0 [place] 074992-06-29 09:09:00 Test Item Value Reference Range Interpretation Comments Globulin (test code = Globulin) 3.8 2.7-4.2 [place] 074992-06-29 09:09:00 Test Item Value Reference Range Interpretation Comments A/G Ratio (test code = A/G Ratio) 0.7 1 0.7-1.6 [place] 074992-06-29 09:09:00 Test Item Value Reference Range Interpretation Comments ALT (test code = ALT) 38 See_Comment [Auto mated message] The system which ge nerated this result transmit swathi reference range : <=65. The reference range was not used to interpr et this result as deny l/abnormal. [facility] [id number] 09:09:00 Test Item Value Reference Range Interpretation Comments AST (test code = AST) 31 See_Comment [Auto mated message] The system which ge nerated this result transmit swathi reference range : <=37. The reference range was not used to interpr et this result as deny l/abnormal. [facility] [id number] 09:09:00 Test Item Value Reference Range Interpretation Comments Alk Phos (test code = Alk Phos) 357 39-136 [facility] [id number] 09:09:00 Test Item Value Reference Range Interpretation Comments Bili Total (test code = Bili Total) 1.0 0.2-1.3 [facility] [id number] 09:09:00 Test Item Value Reference Range Interpretation Comments eGFR (test code = eGFR) 8 [facility] [id number] 09:09:00 Test Item Value Reference Range Interpretation Comments Magnesium Lvl (test code = Magnesium 2.0 1.8-2.4 Lvl) [place] 074992-06-29 09:09:00 Test Item Value Reference Range Interpretation Comments LDH (test code = LDH) 251 98-192 [facility] [id number] 09:09:00 Test Item Value Reference Range Interpretation Comments Procalcitonin Lvl (test 0.51 See_Comment [Au tomated message] code = Procalcitonin Lvl) Th e system which generated this result transmitted ref erence range: <=0.10. The reference range was not used to interpr et this result as normal/abnormal . [facility] HospitalQxevwbgDCFWXXVPBC0550-37-01 09:09:00 Test Item Value Reference Range Interpretation Comments D-Dimer (test code = D-Dimer) 5.06 [place] 152042-06-29 09:09:00 Test Item Value Reference Range Interpretation Comments WBC (test code = WBC) 4.8 3.7-10.4 [facility] HospitalSczbsytTPJLPNYOQI8808-04-41 09:09:00 Test Item Value Reference Range Interpretation Comments RBC (test code = RBC) 2.14 4.70-6.10 [place] 152042-06-29 09:09:00 Test Item Value Reference Range Interpretation Comments Hgb (test code = Hgb) 7.7 14.0-18.0 [place] 152042-06-29 09:09:00 Test Item Value Reference Range Interpretation Comments Hct (test code = Hct) 22.8 42.0-54.0 [place] 152042-06-29 09:09:00 Test Item Value Reference Range Interpretation Comments MCV (test code = MCV) 106.5 80.0-94.0 [place] 152042-06-29 09:09:00 Test Item Value Reference Range Interpretation Comments MCH (test code = MCH) 36.1 pg 27.0-31.0 [facility] HospitalIedioalHSQTZHSILF8749-93-73 09:09:00 Test Item Value Reference Range Interpretation Comments MCHC (test code = MCHC) 33.9 32.0-36.0 [facility] HospitalQftqzrrQRXFGXMRWA7506-50-18 09:09:00 Test Item Value Reference Range Interpretation Comments RDW (test code = RDW) 21.8 11.5-14.5 [place] 152042-06-29 09:09:00 Test Item Value Reference Range Interpretation Comments Platelet (test code = Platelet) 176 133-450 [facility] HospitalNxradwtTFNWTOROXK9202-03-46 09:09:00 Test Item Value Reference Range Interpretation Comments MPV (test code = MPV) 8.2 7.4-10.4 [place] 152042-06-29 09:09:00 Test Item Value Reference Range Interpretation Comments Segs (test code = Segs) 83.6 45.0-75.0 [facility] HospitalCedipinXBTAHPYLKT1072-53-84 09:09:00 Test Item Value Reference Range Interpretation Comments Lymphocytes (test code = Lymphocytes) 10.7 20.0-40.0 [place] 152042-06-29 09:09:00 Test Item Value Reference Range Interpretation Comments Monocytes (test code = Monocytes) 4.9 2.0-12.0 [place] 152042-06-29 09:09:00 Test Item Value Reference Range Interpretation Comments Eosinophils (test code = 0.4 See_Comment [A utomated message] The Eosinophils) system which ge nerated this result tra nsmitted reference range : <=4.0. The reference r samantha was not used to int erpret this result as normal/abnormal . [facility] HospitalIuduvqqCLVICVDRHY2911-08-11 09:09:00 Test Item Value Reference Range Interpretation Comments Basophils (test code = 0.4 See_Comment [Aut omated message] The Basophils) system which ge nerated this result tra nsmitted reference range : <=1.0. The reference r samantha was not used to int erpret this result as normal/abnormal . [facility] HospitalBghgeucMYXBKOXKYV2157-63-87 09:09:00 Test Item Value Reference Range Interpretation Comments Neutrophils # (test code = Neutrophils 4.0 1.5-8.1 #) [facility] HospitalAppdmedHPYAZPFGRO4288-82-98 09:09:00 Test Item Value Reference Range Interpretation Comments Lymphocytes # (test code = Lymphocytes 0.5 1.0-5.5 #) [facility] HospitalJdfkuupFPOUCLVGEE8123-82-71 09:09:00 Test Item Value Reference Range Interpretation Comments Monocytes # (test code 0.2 See_Comment [Aut omated message] The = Monocytes #) system which generated this result tra nsmitted reference range : <=0.8. The reference r samantha was not used to int erpret this result as normal/abnormal . [facility] HospitalTwnggnbCPYVCGAPWB0224-03-82 09:09:00 Test Item Value Reference Range Interpretation Comments Macrocyte (test code = 1+ *ABN*(11/26/21 Macrocyte) 4:09 AM) [facility] HospitalGioatupKERZCFFHJN1279-40-18 09:09:00 Test Item Value Reference Range Interpretation Comments Interleukin 6 (test code = Interleukin 14.71 6) [facility] HospitalUxhzugtLQPPFBEJSZ8872-70-34 09:09:00 Test Item Value Reference Range Interpretation Comments C-REACTIVE PROTEIN (test code = 95.9 C-REACTIVE PROTEIN) [facility]2022-06-29 09:09:00 Test Item Value Reference Range Interpretation Comments Ferritin Lvl (test code = Ferritin Lvl) 1543 59-119 [facility]2022-06-29 09:09:00 Test Item Value Reference Range Interpretation Comments Glucose Lvl (test code = Glucose Lvl) 288 70-99 [facility]2022-06-29 09:09:00 Test Item Value Reference Range Interpretation Comments BUN (test code = BUN) 40 7-22 [facility]2022-06-29 09:09:00 Test Item Value Reference Range Interpretation Comments Creatinine Lvl (test code = Creatinine 6.23 0.50-1.40 Lvl) [facility]2022-06-29 09:09:00 Test Item Value Reference Range Interpretation Comments Sodium Lvl (test code = Sodium Lvl) 134 135-145 [place] 074992-06-29 09:09:00 Test Item Value Reference Range Interpretation Comments Potassium Lvl (test code = Potassium 4.5 3.5-5.1 Lvl) [place] 074992-06-29 09:09:00 Test Item Value Reference Range Interpretation Comments Chloride Lvl (test code = Chloride Lvl) 96 95-109 [place] 074992-06-29 09:09:00 Test Item Value Reference Range Interpretation Comments CO2 (test code = CO2) 29 24-32 [place] 074992-06-29 09:09:00 Test Item Value Reference Range Interpretation Comments AGAP (test code = AGAP) 13.5 10.0-20.0 [place] 074992-06-29 09:09:00 Test Item Value Reference Range Interpretation Comments Calcium Lvl (test code = Calcium Lvl) 9.1 8.5-10.5 [place] 074992-06-29 09:09:00 Test Item Value Reference Range Interpretation Comments B/C Ratio (test code = B/C Ratio) 6 1 6-25 [place] 074992-06-29 09:09:00 Test Item Value Reference Range Interpretation Comments Total Protein (test code = Total 6.3 6.4-8.4 Protein) [place] 074992-06-29 09:09:00 Test Item Value Reference Range Interpretation Comments Albumin Lvl (test code = Albumin Lvl) 2.5 3.5-5.0 [place] 074992-06-29 09:09:00 Test Item Value Reference Range Interpretation Comments Globulin (test code = Globulin) 3.8 2.7-4.2 [place] 074992-06-29 09:09:00 Test Item Value Reference Range Interpretation Comments A/G Ratio (test code = A/G Ratio) 0.7 1 0.7-1.6 [facility] JRapid [id number] 09:09:00 Test Item Value Reference Range Interpretation Comments ALT (test code = ALT) 38 See_Comment [Auto mated message] The system which ge nerated this result transmit swathi reference range : <=65. The reference range was not used to interpr et this result as deny l/abnormal. [facility] [id number] 09:09:00 Test Item Value Reference Range Interpretation Comments AST (test code = AST) 31 See_Comment [Auto mated message] The system which ge nerated this result transmit swathi reference range : <=37. The reference range was not used to interpr et this result as deny l/abnormal. [facility] [employer] [id number] 09:09:00 Test Item Value Reference Range Interpretation Comments Alk Phos (test code = Alk Phos) 357 39-136 [facility] [employer] [id number] 09:09:00 Test Item Value Reference Range Interpretation Comments Bili Total (test code = Bili Total) 1.0 0.2-1.3 [facility] [id number] 09:09:00 Test Item Value Reference Range Interpretation Comments eGFR (test code = eGFR) 8 [facility] [employer] [id number] 09:09:00 Test Item Value Reference Range Interpretation Comments Magnesium Lvl (test code = Magnesium 2.0 1.8-2.4 Lvl) [facility] [id number] 09:09:00 Test Item Value Reference Range Interpretation Comments LDH (test code = LDH) 251 98-192 [facility] [employer] [id number] 09:09:00 Test Item Value Reference Range Interpretation Comments Procalcitonin Lvl (test 0.51 See_Comment [Au tomated message] code = Procalcitonin Lvl) Th e system which generated this result transmitted ref erence range: <=0.10. The reference range was not used to interpr et this result as normal/abnormal . [facility]PowtcneTYSVNZBKRR5680-83-35 09:09:00 Test Item Value Reference Range Interpretation Comments D-Dimer (test code = D-Dimer) 5.06 [facility] HospitalUmrnxszAFPMYHREHO9073-10-49 09:09:00 Test Item Value Reference Range Interpretation Comments WBC (test code = WBC) 4.8 3.7-10.4 [facility]GsidloeVAXZSFTWSG7320-91-13 09:09:00 Test Item Value Reference Range Interpretation Comments RBC (test code = RBC) 2.14 4.70-6.10 [facility] HospitalKpjifimGPZAQDWHIG7892-33-44 09:09:00 Test Item Value Reference Range Interpretation Comments Hgb (test code = Hgb) 7.7 14.0-18.0 [facility] HospitalQyhnlcsCKVFJTRCMQ0928-11-32 09:09:00 Test Item Value Reference Range Interpretation Comments Hct (test code = Hct) 22.8 42.0-54.0 [facility] HospitalMokdhlnVOOLXFHHFG0323-42-24 09:09:00 Test Item Value Reference Range Interpretation Comments MCV (test code = MCV) 106.5 80.0-94.0 [facility] HospitalLjghsjeSVBDNWAACE8358-30-96 09:09:00 Test Item Value Reference Range Interpretation Comments MCH (test code = MCH) 36.1 pg 27.0-31.0 [facility] HospitalQhgkuuqPDXTSLFVQS2739-61-43 09:09:00 Test Item Value Reference Range Interpretation Comments MCHC (test code = MCHC) 33.9 32.0-36.0 [facility] HospitalBflcbxsXKGSJFAELR4901-28-19 09:09:00 Test Item Value Reference Range Interpretation Comments RDW (test code = RDW) 21.8 11.5-14.5 [facility] HospitalQkpfeprCYFHYAXQAY8782-70-85 09:09:00 Test Item Value Reference Range Interpretation Comments Platelet (test code = Platelet) 176 133-450 [facility] HospitalZwpfuieHVJNYYQDNG9706-70-21 09:09:00 Test Item Value Reference Range Interpretation Comments MPV (test code = MPV) 8.2 7.4-10.4 [facility] HospitalLvufzoeWPFRXDURFR7608-25-61 09:09:00 Test Item Value Reference Range Interpretation Comments Segs (test code = Segs) 83.6 45.0-75.0 [facility] HospitalKayetfrMVWGZCSGDY8541-75-23 09:09:00 Test Item Value Reference Range Interpretation Comments Lymphocytes (test code = Lymphocytes) 10.7 20.0-40.0 [facility] HospitalHnvoaglSUZKBUQNTJ7956-16-06 09:09:00 Test Item Value Reference Range Interpretation Comments Monocytes (test code = Monocytes) 4.9 2.0-12.0 [place] [id number] 09:09:00 Test Item Value Reference Range Interpretation Comments Ferritin Lvl (test code = Ferritin Lvl) 1543 22275 [facility]2022-06-29 09:09:00 Test Item Value Reference Range Interpretation Comments Glucose Lvl (test code = Glucose Lvl) 288 70-99 [facility]2022-06-29 09:09:00 Test Item Value Reference Range Interpretation Comments BUN (test code = BUN) 40 7-22 [facility]2022-06-29 09:09:00 Test Item Value Reference Range Interpretation Comments Creatinine Lvl (test code = Creatinine 6.23 0.50-1.40 Lvl) [facility]2022-06-29 09:09:00 Test Item Value Reference Range Interpretation Comments Sodium Lvl (test code = Sodium Lvl) 134 135-145 [facility]2022-06-29 09:09:00 Test Item Value Reference Range Interpretation Comments Potassium Lvl (test code = Potassium 4.5 3.5-5.1 Lvl) [facility]2022-06-29 09:09:00 Test Item Value Reference Range Interpretation Comments Chloride Lvl (test code = Chloride Lvl) 96 95-109 [facility]2022-06-29 09:09:00 Test Item Value Reference Range Interpretation Comments CO2 (test code = CO2) 29 24-32 [facility] HospitalXxcahciVWVNGVRHOE2428-77-34 09:09:00 Test Item Value Reference Range Interpretation Comments Eosinophils (test code = 0.4 See_Comment [A utomated message] The Eosinophils) system which ge nerated this result tra nsmitted reference range : <=4.0. The reference r samantha was not used to int erpret this result as normal/abnormal . [facility]2022-06-29 09:09:00 Test Item Value Reference Range Interpretation Comments AGAP (test code = AGAP) 13.5 10.0-20.0 [facility]2022-06-29 09:09:00 Test Item Value Reference Range Interpretation Comments Calcium Lvl (test code = Calcium Lvl) 9.1 8.5-10.5 [place] 074992-06-29 09:09:00 Test Item Value Reference Range Interpretation Comments B/C Ratio (test code = B/C Ratio) 6 1 6-25 [facility]2022-06-29 09:09:00 Test Item Value Reference Range Interpretation Comments Total Protein (test code = Total 6.3 6.4-8.4 Protein) [facility]2022-06-29 09:09:00 Test Item Value Reference Range Interpretation Comments Albumin Lvl (test code = Albumin Lvl) 2.5 3.5-5.0 [facility]2022-06-29 09:09:00 Test Item Value Reference Range Interpretation Comments Globulin (test code = Globulin) 3.8 2.7-4.2 [facility]2022-06-29 09:09:00 Test Item Value Reference Range Interpretation Comments A/G Ratio (test code = A/G Ratio) 0.7 1 0.7-1.6 [facility]2022-06-29 09:09:00 Test Item Value Reference Range Interpretation Comments ALT (test code = ALT) 38 See_Comment [Auto mated message] The system which ge nerated this result transmit swathi reference range : <=65. The reference range was not used to interpr et this result as deny l/abnormal. [facility]2022-06-29 09:09:00 Test Item Value Reference Range Interpretation Comments AST (test code = AST) 31 See_Comment [Auto mated message] The system which ge nerated this result transmit swathi reference range : <=37. The reference range was not used to interpr et this result as deny l/abnormal. [facility]2022-06-29 09:09:00 Test Item Value Reference Range Interpretation Comments Alk Phos (test code = Alk Phos) 357 39-136 [facility] Ho[id number] 09:09:00 Test Item Value Reference Range Interpretation Comments Basophils (test code = 0.4 See_Comment [Aut omated message] The Basophils) system which ge nerated this result tra nsmitted reference range : <=1.0. The reference r samantha was not used to int erpret this result as normal/abnormal . [facility]2022-06-29 09:09:00 Test Item Value Reference Range Interpretation Comments Bili Total (test code = Bili Total) 1.0 0.2-1.3 [place] 074992-06-29 09:09:00 Test Item Value Reference Range Interpretation Comments eGFR (test code = eGFR) 8 [place] 074992-06-29 09:09:00 Test Item Value Reference Range Interpretation Comments Magnesium Lvl (test code = Magnesium 2.0 1.8-2.4 Lvl) [place] 074992-06-29 09:09:00 Test Item Value Reference Range Interpretation Comments LDH (test code = LDH) 251 98-192 [place] 074992-06-29 09:09:00 Test Item Value Reference Range Interpretation Comments Procalcitonin Lvl (test 0.51 See_Comment [Au tomated message] code = Procalcitonin Lvl) e system which generated this result transmitted ref erence range: <=0.10. The reference range was not used to interpr et this result as normal/abnormal . [place] 152042-06-29 09:09:00 Test Item Value Reference Range Interpretation Comments D-Dimer (test code = D-Dimer) 5.06 [place] 152042-06-29 09:09:00 Test Item Value Reference Range Interpretation Comments WBC (test code = WBC) 4.8 3.7-10.4 [place] [address]-06-29 09:09:00 Test Item Value Reference Range Interpretation Comments RBC (test code = RBC) 2.14 4.70-6.10 [place] 152042-06-29 09:09:00 Test Item Value Reference Range Interpretation Comments Hgb (test code = Hgb) 7.7 14.0-18.0 [place] 152042-06-29 09:09:00 Test Item Value Reference Range Interpretation Comments Hct (test code = Hct) 22.8 42.0-54.0 [place] [address]-06-29 09:09:00 Test Item Value Reference Range Interpretation Comments Neutrophils # (test code = Neutrophils 4.0 1.5-8.1 #) [place] [address]-06-29 09:09:00 Test Item Value Reference Range Interpretation Comments MCV (test code = MCV) 106.5 80.0-94.0 [place] [address]-06-29 09:09:00 Test Item Value Reference Range Interpretation Comments MCH (test code = MCH) 36.1 pg 27.0-31.0 [facility] HospitalWzzybycWAJRETBYDH2686-20-92 09:09:00 Test Item Value Reference Range Interpretation Comments MCHC (test code = MCHC) 33.9 32.0-36.0 [facility] HospitalFsnbcwiJUQSMESIMY4673-18-96 09:09:00 Test Item Value Reference Range Interpretation Comments RDW (test code = RDW) 21.8 11.5-14.5 [facility] HospitalHdfszgsVKGLZIDGRZ1197-60-32 09:09:00 Test Item Value Reference Range Interpretation Comments Platelet (test code = Platelet) 176 133-450 [facility] HospitalMpainmdPJKQHYCOXV4842-41-95 09:09:00 Test Item Value Reference Range Interpretation Comments MPV (test code = MPV) 8.2 7.4-10.4 [place] 152042-06-29 09:09:00 Test Item Value Reference Range Interpretation Comments Segs (test code = Segs) 83.6 45.0-75.0 [facility] HospitalJaowdlqJDIPOULMFZ2027-45-58 09:09:00 Test Item Value Reference Range Interpretation Comments Lymphocytes (test code = Lymphocytes) 10.7 20.0-40.0 [place] 152042-06-29 09:09:00 Test Item Value Reference Range Interpretation Comments Monocytes (test code = Monocytes) 4.9 2.0-12.0 [facility] HospitalVgkddawBYRNUPRINN4879-08-97 09:09:00 Test Item Value Reference Range Interpretation Comments Eosinophils (test code = 0.4 See_Comment [A utomated message] The Eosinophils) system which ge nerated this result tra nsmitted reference range : <=4.0. The reference r samantha was not used to int erpret this result as normal/abnormal . [facility] HospitalWfcxwkgYZWFQAETWE5579-24-16 09:09:00 Test Item Value Reference Range Interpretation Comments Lymphocytes # (test code = Lymphocytes 0.5 1.0-5.5 #) [facility] HospitalCmvysgaYWFLTIVDVB2314-40-73 09:09:00 Test Item Value Reference Range Interpretation Comments Basophils (test code = 0.4 See_Comment [Aut omated message] The Basophils) system which ge nerated this result tra nsmitted reference range : <=1.0. The reference r samantha was not used to int erpret this result as normal/abnormal . [facility] HospitalRldbojkAKFVEIJVQD2521-50-61 09:09:00 Test Item Value Reference Range Interpretation Comments Neutrophils # (test code = Neutrophils 4.0 1.5-8.1 #) [facility] HospitalRseyqcoGYIZBDWUWL8820-27-14 09:09:00 Test Item Value Reference Range Interpretation Comments Lymphocytes # (test code = Lymphocytes 0.5 1.0-5.5 #) [facility] HospitalGfitzmvQNKIPHPGQX4413-44-67 09:09:00 Test Item Value Reference Range Interpretation Comments Monocytes # (test code 0.2 See_Comment [Aut omated message] The = Monocytes #) system which generated this result tra nsmitted reference range : <=0.8. The reference r samantha was not used to int erpret this result as normal/abnormal . [place] 152042-06-29 09:09:00 Test Item Value Reference Range Interpretation Comments Macrocyte (test code = 1+ *ABN*(11/26/21 Macrocyte) 4:09 AM) [place] 115822-06-29 09:09:00 Test Item Value Reference Range Interpretation Comments Interleukin 6 (test code = Interleukin 14.71 6) [facility]XAPJZEHIKH1983-[facility] 09:09:00 Test Item Value Reference Range Interpretation Comments C-REACTIVE PROTEIN (test code = 95.9 C-REACTIVE PROTEIN) [facility] HospitalClhfggqUFNQQBPNPW9488-38-93 09:09:00 Test Item Value Reference Range Interpretation Comments Monocytes # (test code 0.2 See_Comment [Aut omated message] The = Monocytes #) system which generated this result tra nsmitted reference range : <=0.8. The reference r samantha was not used to int erpret this result as normal/abnormal . [facility] HospitalMuskqcmFXKCSBVWBQ3454-52-88 09:09:00 Test Item Value Reference Range Interpretation Comments Macrocyte (test code = 1+ *ABN*(11/26/21 Macrocyte) 4:09 AM) [place] 115822-06-29 09:09:00 Test Item Value Reference Range Interpretation Comments Interleukin 6 (test code = Interleukin 14.71 6) [place] 115822-06-29 09:09:00 Test Item Value Reference Range Interpretation Comments C-REACTIVE PROTEIN (test code = 95.9 C-REACTIVE PROTEIN) [facility]2022-06-29 09:09:00 Test Item Value Reference Range Interpretation Comments Ferritin Lvl (test code = Ferritin Lvl) 1543 22275 [place] 074992-06-29 09:09:00 Test Item Value Reference Range Interpretation Comments Glucose Lvl (test code = Glucose Lvl) 288 70-99 [place] 074992-06-29 09:09:00 Test Item Value Reference Range Interpretation Comments BUN (test code = BUN) 40 7-22 [place] 074992-06-29 09:09:00 Test Item Value Reference Range Interpretation Comments Creatinine Lvl (test code = Creatinine 6.23 0.50-1.40 Lvl) [place] 074992-06-29 09:09:00 Test Item Value Reference Range Interpretation Comments Sodium Lvl (test code = Sodium Lvl) 134 135-145 [place] 074992-06-29 09:09:00 Test Item Value Reference Range Interpretation Comments Potassium Lvl (test code = Potassium 4.5 3.5-5.1 Lvl) [place] 074992-06-29 09:09:00 Test Item Value Reference Range Interpretation Comments Chloride Lvl (test code = Chloride Lvl) 96 95-109 [place] 074992-06-29 09:09:00 Test Item Value Reference Range Interpretation Comments CO2 (test code = CO2) 29 24-32 [place] 074992-06-29 09:09:00 Test Item Value Reference Range Interpretation Comments AGAP (test code = AGAP) 13.5 10.0-20.0 [place] 074992-06-29 09:09:00 Test Item Value Reference Range Interpretation Comments Calcium Lvl (test code = Calcium Lvl) 9.1 8.5-10.5 [place] 074992-06-29 09:09:00 Test Item Value Reference Range Interpretation Comments B/C Ratio (test code = B/C Ratio) 6 1 6-25 [place] 074992-06-29 09:09:00 Test Item Value Reference Range Interpretation Comments Total Protein (test code = Total 6.3 6.4-8.4 Protein) [place] 074992-06-29 09:09:00 Test Item Value Reference Range Interpretation Comments Albumin Lvl (test code = Albumin Lvl) 2.5 3.5-5.0 [place] 074992-06-29 09:09:00 Test Item Value Reference Range Interpretation Comments Globulin (test code = Globulin) 3.8 2.7-4.2 [place] 074992-06-29 09:09:00 Test Item Value Reference Range Interpretation Comments A/G Ratio (test code = A/G Ratio) 0.7 1 0.7-1.6 [place] 074992-06-29 09:09:00 Test Item Value Reference Range Interpretation Comments ALT (test code = ALT) 38 See_Comment [Auto mated message] The system which ge nerated this result transmit swathi reference range : <=65. The reference range was not used to interpr et this result as deny l/abnormal. [place] 074992-06-29 09:09:00 Test Item Value Reference Range Interpretation Comments AST (test code = AST) 31 See_Comment [Auto mated message] The system which ge nerated this result transmit swathi reference range : <=37. The reference range was not used to interpr et this result as deny l/abnormal. [place] 074992-06-29 09:09:00 Test Item Value Reference Range Interpretation Comments Alk Phos (test code = Alk Phos) 357 39-136 [place] 074992-06-29 09:09:00 Test Item Value Reference Range Interpretation Comments Bili Total (test code = Bili Total) 1.0 0.2-1.3 [place] 074992-06-29 09:09:00 Test Item Value Reference Range Interpretation Comments eGFR (test code = eGFR) 8 [place] 074992-06-29 09:09:00 Test Item Value Reference Range Interpretation Comments Magnesium Lvl (test code = Magnesium 2.0 1.8-2.4 Lvl) [place] 074992-06-29 09:09:00 Test Item Value Reference Range Interpretation Comments LDH (test code = LDH) 251 98-192 [place] 074992-06-29 09:09:00 Test Item Value Reference Range Interpretation Comments Procalcitonin Lvl (test 0.51 See_Comment [Au tomated message] code = Procalcitonin Lvl) Th e system which generated this result transmitted ref erence range: <=0.10. The reference range was not used to interpr et this result as normal/abnormal . [facility] HospitalOitxzctTJFYAEYEUR8510-90-82 09:09:00 Test Item Value Reference Range Interpretation Comments D-Dimer (test code = D-Dimer) 5.06 [facility] HospitalBfsjitnWSWOGZLDRQ0072-09-13 09:09:00 Test Item Value Reference Range Interpretation Comments WBC (test code = WBC) 4.8 3.7-10.4 [facility] HospitalIbwjbtcEBVHRVBFLP2947-06-01 09:09:00 Test Item Value Reference Range Interpretation Comments RBC (test code = RBC) 2.14 4.70-6.10 [place] 152042-06-29 09:09:00 Test Item Value Reference Range Interpretation Comments Hgb (test code = Hgb) 7.7 14.0-18.0 [place] 152042-06-29 09:09:00 Test Item Value Reference Range Interpretation Comments Hct (test code = Hct) 22.8 42.0-54.0 [facility] HospitalVszdakjYIXNHUJTLS1971-74-23 09:09:00 Test Item Value Reference Range Interpretation Comments MCV (test code = MCV) 106.5 80.0-94.0 [facility] HospitalQgvqqafUFCXQYYLSP2987-22-31 09:09:00 Test Item Value Reference Range Interpretation Comments MCH (test code = MCH) 36.1 pg 27.0-31.0 [facility] HospitalMsuxztyIXOMTBADEC9619-54-05 09:09:00 Test Item Value Reference Range Interpretation Comments MCHC (test code = MCHC) 33.9 32.0-36.0 [facility] HospitalZvvdilzDCVELRDHNH7071-23-69 09:09:00 Test Item Value Reference Range Interpretation Comments RDW (test code = RDW) 21.8 11.5-14.5 [place] 152042-06-29 09:09:00 Test Item Value Reference Range Interpretation Comments Platelet (test code = Platelet) 176 133-450 [place] 152042-06-29 09:09:00 Test Item Value Reference Range Interpretation Comments MPV (test code = MPV) 8.2 7.4-10.4 [place] 152042-06-29 09:09:00 Test Item Value Reference Range Interpretation Comments Segs (test code = Segs) 83.6 45.0-75.0 [facility] HospitalRmghbmzCEWSRXDCSC3036-26-72 09:09:00 Test Item Value Reference Range Interpretation Comments Lymphocytes (test code = Lymphocytes) 10.7 20.0-40.0 [facility] HospitalRxpodcqDRGPHBYTQA7217-88-57 09:09:00 Test Item Value Reference Range Interpretation Comments Monocytes (test code = Monocytes) 4.9 2.0-12.0 [facility] HospitalBosfpaeURQOJLKKMW3689-70-62 09:09:00 Test Item Value Reference Range Interpretation Comments Eosinophils (test code = 0.4 See_Comment [A utomated message] The Eosinophils) system which ge nerated this result tra nsmitted reference range : <=4.0. The reference r samantha was not used to int erpret this result as normal/abnormal . [facility] HospitalMrumvbyOHHRDHLMLT2463-33-13 09:09:00 Test Item Value Reference Range Interpretation Comments Basophils (test code = 0.4 See_Comment [Aut omated message] The Basophils) system which ge nerated this result tra nsmitted reference range : <=1.0. The reference r samantha was not used to int erpret this result as normal/abnormal . [facility] HospitalQqwsujcZKUXNUDRQU1868-20-77 09:09:00 Test Item Value Reference Range Interpretation Comments Neutrophils # (test code = Neutrophils 4.0 1.5-8.1 #) [facility] HospitalDqwhaqtVLNNWVCRKS2536-29-03 09:09:00 Test Item Value Reference Range Interpretation Comments Lymphocytes # (test code = Lymphocytes 0.5 1.0-5.5 #) [facility] HospitalXeitjapASAZMEJECK8066-37-15 09:09:00 Test Item Value Reference Range Interpretation Comments Monocytes # (test code 0.2 See_Comment [Aut omated message] The = Monocytes #) system which generated this result tra nsmitted reference range : <=0.8. The reference r samantha was not used to int erpret this result as normal/abnormal . [facility] HospitalAdnoxsaEGDJFWTHVX1401-29-69 09:09:00 Test Item Value Reference Range Interpretation Comments Macrocyte (test code = 1+ *ABN*(11/26/21 Macrocyte) 4:09 AM) [facility] HospitalUcuseqlYLZRLGVEWG4045-25-77 09:09:00 Test Item Value Reference Range Interpretation Comments Interleukin 6 (test code = Interleukin 14.71 6) [facility] HospitalYhvltdkTFUMCHQGEA1410-24-19 09:09:00 Test Item Value Reference Range Interpretation Comments C-REACTIVE PROTEIN (test code = 95.9 C-REACTIVE PROTEIN) [facility]2022-06-29 09:09:00 Test Item Value Reference Range Interpretation Comments Ferritin Lvl (test code = Ferritin Lvl) 1543 22-275 [facility]2022-06-29 09:09:00 Test Item Value Reference Range Interpretation Comments Glucose Lvl (test code = Glucose Lvl) 288 70-99 [facility]2022-06-29 09:09:00 Test Item Value Reference Range Interpretation Comments BUN (test code = BUN) 40 7-22 [facility]2022-06-29 09:09:00 Test Item Value Reference Range Interpretation Comments Creatinine Lvl (test code = Creatinine 6.23 0.50-1.40 Lvl) [facility]2022-06-29 09:09:00 Test Item Value Reference Range Interpretation Comments Sodium Lvl (test code = Sodium Lvl) 134 135-145 [facility]2022-06-29 09:09:00 Test Item Value Reference Range Interpretation Comments Potassium Lvl (test code = Potassium 4.5 3.5-5.1 Lvl) [facility]2022-06-29 09:09:00 Test Item Value Reference Range Interpretation Comments Chloride Lvl (test code = Chloride Lvl) 96 95-109 [facility]2022-06-29 09:09:00 Test Item Value Reference Range Interpretation Comments CO2 (test code = CO2) 29 24-32 [facility]2022-06-29 09:09:00 Test Item Value Reference Range Interpretation Comments AGAP (test code = AGAP) 13.5 10.0-20.0 [place] 074992-06-29 09:09:00 Test Item Value Reference Range Interpretation Comments Calcium Lvl (test code = Calcium Lvl) 9.1 8.5-10.5 [place] 074992-06-29 09:09:00 Test Item Value Reference Range Interpretation Comments B/C Ratio (test code = B/C Ratio) 6 1 6-25 [place] 074992-06-29 09:09:00 Test Item Value Reference Range Interpretation Comments Total Protein (test code = Total 6.3 6.4-8.4 Protein) [facility] HospitalEquals6 [id number] 09:09:00 Test Item Value Reference Range Interpretation Comments Albumin Lvl (test code = Albumin Lvl) 2.5 3.5-5.0 [place] 074992-06-29 09:09:00 Test Item Value Reference Range Interpretation Comments Globulin (test code = Globulin) 3.8 2.7-4.2 [facility]Equals[facility] [id number] 09:09:00 Test Item Value Reference Range Interpretation Comments A/G Ratio (test code = A/G Ratio) 0.7 1 0.7-1.6 [facility]Equals[facility] [id number] 09:09:00 Test Item Value Reference Range Interpretation Comments ALT (test code = ALT) 38 See_Comment [Auto mated message] The system which ge nerated this result transmit swathi reference range : <=65. The reference range was not used to interpr et this result as deny l/abnormal. [facility] [id number] 09:09:00 Test Item Value Reference Range Interpretation Comments AST (test code = AST) 31 See_Comment [Auto mated message] The system which ge nerated this result transmit swathi reference range : <=37. The reference range was not used to interpr et this result as deny l/abnormal. [facility] [id number] 09:09:00 Test Item Value Reference Range Interpretation Comments Alk Phos (test code = Alk Phos) 357 39-136 [facility] [id number] 09:09:00 Test Item Value Reference Range Interpretation Comments Bili Total (test code = Bili Total) 1.0 0.2-1.3 [facility] [id number] 09:09:00 Test Item Value Reference Range Interpretation Comments eGFR (test code = eGFR) 8 [facility] [id number] 09:09:00 Test Item Value Reference Range Interpretation Comments Magnesium Lvl (test code = Magnesium 2.0 1.8-2.4 Lvl) [facility] [id number] 09:09:00 Test Item Value Reference Range Interpretation Comments LDH (test code = LDH) 251 98-192 [facility]2022-06-29 09:09:00 Test Item Value Reference Range Interpretation Comments Procalcitonin Lvl (test 0.51 See_Comment [Au tomated message] code = Procalcitonin Lvl) Th e system which generated this result transmitted ref erence range: <=0.10. The reference range was not used to interpr et this result as normal/abnormal . [facility]XfzrtvgLIIGASEVNX1380-34-36 09:09:00 Test Item Value Reference Range Interpretation Comments D-Dimer (test code = D-Dimer) 5.06 [facility] HospitalQsnbexkDJZAHGSUWD4125-35-66 09:09:00 Test Item Value Reference Range Interpretation Comments WBC (test code = WBC) 4.8 3.7-10.4 [facility] HospitalXqkpgqaHUPXSGUBNX5899-30-04 09:09:00 Test Item Value Reference Range Interpretation Comments RBC (test code = RBC) 2.14 4.70-6.10 [facility] HospitalRnmklydSWKXKOOCSE3654-03-20 09:09:00 Test Item Value Reference Range Interpretation Comments Hgb (test code = Hgb) 7.7 14.0-18.0 [facility] HospitalOznkkufFXTTKQNYVS4914-17-08 09:09:00 Test Item Value Reference Range Interpretation Comments Hct (test code = Hct) 22.8 42.0-54.0 [facility] HospitalXllhhqeXASEJRPAPQ5883-30-57 09:09:00 Test Item Value Reference Range Interpretation Comments MCV (test code = MCV) 106.5 80.0-94.0 [facility] HospitalBzoeyenDBSQHWNINV5474-39-92 09:09:00 Test Item Value Reference Range Interpretation Comments MCH (test code = MCH) 36.1 pg 27.0-31.0 [facility] HospitalIwxgnrjPHBQNWKDKA9170-67-41 09:09:00 Test Item Value Reference Range Interpretation Comments MCHC (test code = MCHC) 33.9 32.0-36.0 [facility] HospitalPqctabzCTWMHYVCIF7451-37-30 09:09:00 Test Item Value Reference Range Interpretation Comments RDW (test code = RDW) 21.8 11.5-14.5 [facility] HospitalGxagqjqRMUIKBPBNB5196-11-26 09:09:00 Test Item Value Reference Range Interpretation Comments Platelet (test code = Platelet) 176 133-450 [facility] HospitalJyspwlhYCXHGZUULX3222-00-62 09:09:00 Test Item Value Reference Range Interpretation Comments MPV (test code = MPV) 8.2 7.4-10.4 [facility] HospitalGwqcejxISYNNBQIOR2737-51-02 09:09:00 Test Item Value Reference Range Interpretation Comments Segs (test code = Segs) 83.6 45.0-75.0 [facility] HospitalSpilvtsAJMHZVYTTW7075-89-52 09:09:00 Test Item Value Reference Range Interpretation Comments Lymphocytes (test code = Lymphocytes) 10.7 20.0-40.0 [facility] HospitalJkjxzwwROYKYTKDNW7584-55-22 09:09:00 Test Item Value Reference Range Interpretation Comments Monocytes (test code = Monocytes) 4.9 2.0-12.0 [facility] HospitalSevttwmZALWFUBWOA4124-64-12 09:09:00 Test Item Value Reference Range Interpretation Comments Eosinophils (test code = 0.4 See_Comment [A utomated message] The Eosinophils) system which ge nerated this result tra nsmitted reference range : <=4.0. The reference r samantha was not used to int erpret this result as normal/abnormal . [facility] HospitalDybulflVYGHGXWHLD7239-07-10 09:09:00 Test Item Value Reference Range Interpretation Comments Basophils (test code = 0.4 See_Comment [Aut omated message] The Basophils) system which ge nerated this result tra nsmitted reference range : <=1.0. The reference r samantha was not used to int erpret this result as normal/abnormal . [facility] HospitalHehlyywMQFXSAFNIT5666-81-02 09:09:00 Test Item Value Reference Range Interpretation Comments Neutrophils # (test code = Neutrophils 4.0 1.5-8.1 #) [facility] HospitalQfpzksxBXTAAIULIO3791-99-56 09:09:00 Test Item Value Reference Range Interpretation Comments Lymphocytes # (test code = Lymphocytes 0.5 1.0-5.5 #) [place] 152042-06-29 09:09:00 Test Item Value Reference Range Interpretation Comments Monocytes # (test code 0.2 See_Comment [Aut omated message] The = Monocytes #) system which generated this result tra nsmitted reference range : <=0.8. The reference r samantha was not used to int erpret this result as normal/abnormal . [facility] HospitalOiejuiqBSZNJTBKYC8806-88-22 09:09:00 Test Item Value Reference Range Interpretation Comments Macrocyte (test code = 1+ *ABN*(11/26/21 Macrocyte) 4:09 AM) [facility] HospitalFrlirlmKUOGYFUCNZ6521-35-65 09:09:00 Test Item Value Reference Range Interpretation Comments Interleukin 6 (test code = Interleukin 14.71 6) [place] 115822-06-29 09:09:00 Test Item Value Reference Range Interpretation Comments C-REACTIVE PROTEIN (test code = 95.9 C-REACTIVE PROTEIN) [facility]2022-06-29 09:09:00 Test Item Value Reference Range Interpretation Comments Ferritin Lvl (test code = Ferritin Lvl) 1543 22-275 [facility]2022-06-29 09:09:00 Test Item Value Reference Range Interpretation Comments Glucose Lvl (test code = Glucose Lvl) 288 70-99 [place] 074992-06-29 09:09:00 Test Item Value Reference Range Interpretation Comments BUN (test code = BUN) 40 7-22 [place] 074992-06-29 09:09:00 Test Item Value Reference Range Interpretation Comments Creatinine Lvl (test code = Creatinine 6.23 0.50-1.40 Lvl) [facility]2022-06-29 09:09:00 Test Item Value Reference Range Interpretation Comments Sodium Lvl (test code = Sodium Lvl) 134 135-145 [facility]2022-06-29 09:09:00 Test Item Value Reference Range Interpretation Comments Potassium Lvl (test code = Potassium 4.5 3.5-5.1 Lvl) [place] 074992-06-29 09:09:00 Test Item Value Reference Range Interpretation Comments Chloride Lvl (test code = Chloride Lvl) 96 95-109 [place] 074992-06-29 09:09:00 Test Item Value Reference Range Interpretation Comments CO2 (test code = CO2) 29 24-32 [facility]2022-06-29 09:09:00 Test Item Value Reference Range Interpretation Comments AGAP (test code = AGAP) 13.5 10.0-20.0 [place] 074992-06-29 09:09:00 Test Item Value Reference Range Interpretation Comments Calcium Lvl (test code = Calcium Lvl) 9.1 8.5-10.5 [place] 074992-06-29 09:09:00 Test Item Value Reference Range Interpretation Comments B/C Ratio (test code = B/C Ratio) 6 1 6-25 [place] 074992-06-29 09:09:00 Test Item Value Reference Range Interpretation Comments Total Protein (test code = Total 6.3 6.4-8.4 Protein) [place] 074992-06-29 09:09:00 Test Item Value Reference Range Interpretation Comments Albumin Lvl (test code = Albumin Lvl) 2.5 3.5-5.0 [place] 074992-06-29 09:09:00 Test Item Value Reference Range Interpretation Comments Globulin (test code = Globulin) 3.8 2.7-4.2 [place] 074992-06-29 09:09:00 Test Item Value Reference Range Interpretation Comments A/G Ratio (test code = A/G Ratio) 0.7 1 0.7-1.6 [place] 074992-06-29 09:09:00 Test Item Value Reference Range Interpretation Comments ALT (test code = ALT) 38 See_Comment [Auto mated message] The system which ge nerated this result transmit swathi reference range : <=65. The reference range was not used to interpr et this result as deny l/abnormal. [place] 074992-06-29 09:09:00 Test Item Value Reference Range Interpretation Comments AST (test code = AST) 31 See_Comment [Auto mated message] The system which ge nerated this result transmit swathi reference range : <=37. The reference range was not used to interpr et this result as deny l/abnormal. [place] 074992-06-29 09:09:00 Test Item Value Reference Range Interpretation Comments Alk Phos (test code = Alk Phos) 357 39-136 [place] 074992-06-29 09:09:00 Test Item Value Reference Range Interpretation Comments Bili Total (test code = Bili Total) 1.0 0.2-1.3 [place] 074992-06-29 09:09:00 Test Item Value Reference Range Interpretation Comments eGFR (test code = eGFR) 8 [place] 074992-06-29 09:09:00 Test Item Value Reference Range Interpretation Comments Magnesium Lvl (test code = Magnesium 2.0 1.8-2.4 Lvl) [facility]2022-06-29 09:09:00 Test Item Value Reference Range Interpretation Comments LDH (test code = LDH) 251 98-192 [facility]2022-06-29 09:09:00 Test Item Value Reference Range Interpretation Comments Procalcitonin Lvl (test 0.51 See_Comment [Au tomated message] code = Procalcitonin Lvl) e system which generated this result transmitted ref erence range: <=0.10. The reference range was not used to interpr et this result as normal/abnormal . [place] 152042-06-29 09:09:00 Test Item Value Reference Range Interpretation Comments D-Dimer (test code = D-Dimer) 5.06 [place] 152042-06-29 09:09:00 Test Item Value Reference Range Interpretation Comments WBC (test code = WBC) 4.8 3.7-10.4 [place] 152042-06-29 09:09:00 Test Item Value Reference Range Interpretation Comments RBC (test code = RBC) 2.14 4.70-6.10 [place] 152042-06-29 09:09:00 Test Item Value Reference Range Interpretation Comments Hgb (test code = Hgb) 7.7 14.0-18.0 [place] 152042-06-29 09:09:00 Test Item Value Reference Range Interpretation Comments Hct (test code = Hct) 22.8 42.0-54.0 [place] 152042-06-29 09:09:00 Test Item Value Reference Range Interpretation Comments MCV (test code = MCV) 106.5 80.0-94.0 [place] 152042-06-29 09:09:00 Test Item Value Reference Range Interpretation Comments MCH (test code = MCH) 36.1 pg 27.0-31.0 [place] 152042-06-29 09:09:00 Test Item Value Reference Range Interpretation Comments MCHC (test code = MCHC) 33.9 32.0-36.0 [place] [address]-06-29 09:09:00 Test Item Value Reference Range Interpretation Comments RDW (test code = RDW) 21.8 11.5-14.5 [place] 152042-06-29 09:09:00 Test Item Value Reference Range Interpretation Comments Platelet (test code = Platelet) 176 133-450 [place] 152042-06-29 09:09:00 Test Item Value Reference Range Interpretation Comments MPV (test code = MPV) 8.2 7.4-10.4 [place] 152042-06-29 09:09:00 Test Item Value Reference Range Interpretation Comments Segs (test code = Segs) 83.6 45.0-75.0 [place] 152042-06-29 09:09:00 Test Item Value Reference Range Interpretation Comments Lymphocytes (test code = Lymphocytes) 10.7 20.0-40.0 [place] 152042-06-29 09:09:00 Test Item Value Reference Range Interpretation Comments Monocytes (test code = Monocytes) 4.9 2.0-12.0 [place] 152042-06-29 09:09:00 Test Item Value Reference Range Interpretation Comments Eosinophils (test code = 0.4 See_Comment [A utomated message] The Eosinophils) system which ge nerated this result tra nsmitted reference range : <=4.0. The reference r samantha was not used to int erpret this result as normal/abnormal . [place] 152042-06-29 09:09:00 Test Item Value Reference Range Interpretation Comments Basophils (test code = 0.4 See_Comment [Aut omated message] The Basophils) system which ge nerated this result tra nsmitted reference range : <=1.0. The reference r samantha was not used to int erpret this result as normal/abnormal . [facility] HospitalRxdlebaXYJBPTVZNG8390-86-41 09:09:00 Test Item Value Reference Range Interpretation Comments Neutrophils # (test code = Neutrophils 4.0 1.5-8.1 #) [place] 152042-06-29 09:09:00 Test Item Value Reference Range Interpretation Comments Lymphocytes # (test code = Lymphocytes 0.5 1.0-5.5 #) [place] 152042-06-29 09:09:00 Test Item Value Reference Range Interpretation Comments Monocytes # (test code 0.2 See_Comment [Aut omated message] The = Monocytes #) system which generated this result tra nsmitted reference range : <=0.8. The reference r samantha was not used to int erpret this result as normal/abnormal . [place] 152042-06-29 09:09:00 Test Item Value Reference Range Interpretation Comments Macrocyte (test code = 1+ *ABN*(11/26/21 Macrocyte) 4:09 AM) [place] 115822-06-29 09:09:00 Test Item Value Reference Range Interpretation Comments Interleukin 6 (test code = Interleukin 14.71 6) [place] 115822-06-29 09:09:00 Test Item Value Reference Range Interpretation Comments C-REACTIVE PROTEIN (test code = 95.9 C-REACTIVE PROTEIN) [place] 152042-06-28 12:33:00 Test Item Value Reference Range Interpretation Comments Segs (test code = Segs) 84.8 45.0-75.0 [place] 152042-06-28 12:33:00 Test Item Value Reference Range Interpretation Comments Lymphocytes (test code = Lymphocytes) 11.6 20.0-40.0 [place] 152042-06-28 12:33:00 Test Item Value Reference Range Interpretation Comments Monocytes (test code = Monocytes) 2.8 2.0-12.0 [place] 152042-06-28 12:33:00 Test Item Value Reference Range Interpretation Comments Eosinophils (test code = 0.4 See_Comment [A utomated message] The Eosinophils) system which ge nerated this result tra nsmitted reference range : <=4.0. The reference r samantha was not used to int erpret this result as normal/abnormal . [place] 152042-06-28 12:33:00 Test Item Value Reference Range Interpretation Comments Basophils (test code = 0.4 See_Comment [Aut omated message] The Basophils) system which ge nerated this result tra nsmitted reference range : <=1.0. The reference r samantha was not used to int erpret this result as normal/abnormal . [place] 152042-06-28 12:33:00 Test Item Value Reference Range Interpretation Comments Neutrophils # (test code = Neutrophils 4.4 1.5-8.1 #) [place] 152042-06-28 12:33:00 Test Item Value Reference Range Interpretation Comments Lymphocytes # (test code = Lymphocytes 0.6 1.0-5.5 #) [facility] HospitalPvluajsOEOFXNODFE0302-65-92 12:33:00 Test Item Value Reference Range Interpretation Comments Monocytes # (test code 0.1 See_Comment [Aut omated message] The = Monocytes #) system which generated this result tra nsmitted reference range : <=0.8. The reference r samantha was not used to int erpret this result as normal/abnormal . [facility] HospitalUvhtbklLYACDEWYII1648-29-17 12:33:00 Test Item Value Reference Range Interpretation Comments Macrocyte (test code = 1+ *ABN*(11/25/21 Macrocyte) 7:33 AM) [place] 152042-06-28 12:33:00 Test Item Value Reference Range Interpretation Comments WBC (test code = WBC) 5.2 3.7-10.4 [place] 152042-06-28 12:33:00 Test Item Value Reference Range Interpretation Comments RBC (test code = RBC) 2.18 4.70-6.10 [facility] HospitalAubcvilJYMBTZBBGG8643-60-41 12:33:00 Test Item Value Reference Range Interpretation Comments Hgb (test code = Hgb) 7.8 14.0-18.0 [place] 152042-06-28 12:33:00 Test Item Value Reference Range Interpretation Comments Hct (test code = Hct) 23.6 42.0-54.0 [place] 152042-06-28 12:33:00 Test Item Value Reference Range Interpretation Comments MCV (test code = MCV) 108.4 80.0-94.0 [place] 152042-06-28 12:33:00 Test Item Value Reference Range Interpretation Comments MCH (test code = MCH) 35.9 pg 27.0-31.0 [place] 152042-06-28 12:33:00 Test Item Value Reference Range Interpretation Comments MCHC (test code = MCHC) 33.1 32.0-36.0 [place] 152042-06-28 12:33:00 Test Item Value Reference Range Interpretation Comments RDW (test code = RDW) 21.5 11.5-14.5 [place] 152042-06-28 12:33:00 Test Item Value Reference Range Interpretation Comments Platelet (test code = Platelet) 167 133-450 [facility] HospitalVryqpvnIMIBAPEYRY8528-13-19 12:33:00 Test Item Value Reference Range Interpretation Comments MPV (test code = MPV) 7.6 7.4-10.4 [facility] HospitalTcekzhuCFOUZJKTQK8414-68-85 12:33:00 Test Item Value Reference Range Interpretation Comments Segs (test code = Segs) 84.8 45.0-75.0 [place] 152042-06-28 12:33:00 Test Item Value Reference Range Interpretation Comments Lymphocytes (test code = Lymphocytes) 11.6 20.0-40.0 [place] 152042-06-28 12:33:00 Test Item Value Reference Range Interpretation Comments Monocytes (test code = Monocytes) 2.8 2.0-12.0 [facility] HospitalVgyahpwWISHGRAPKB6646-05-34 12:33:00 Test Item Value Reference Range Interpretation Comments Eosinophils (test code = 0.4 See_Comment [A utomated message] The Eosinophils) system which ge nerated this result tra nsmitted reference range : <=4.0. The reference r samantha was not used to int erpret this result as normal/abnormal . [facility] HospitalRdxaftqPTOCTSOAGF1913-74-07 12:33:00 Test Item Value Reference Range Interpretation Comments Basophils (test code = 0.4 See_Comment [Aut omated message] The Basophils) system which ge nerated this result tra nsmitted reference range : <=1.0. The reference r samantha was not used to int erpret this result as normal/abnormal . [facility] HospitalQykzqvrBGQHSOXOGH6604-23-20 12:33:00 Test Item Value Reference Range Interpretation Comments Neutrophils # (test code = Neutrophils 4.4 1.5-8.1 #) [place] 152042-06-28 12:33:00 Test Item Value Reference Range Interpretation Comments Lymphocytes # (test code = Lymphocytes 0.6 1.0-5.5 #) [place] 152042-06-28 12:33:00 Test Item Value Reference Range Interpretation Comments Monocytes # (test code 0.1 See_Comment [Aut omated message] The = Monocytes #) system which generated this result tra nsmitted reference range : <=0.8. The reference r samantha was not used to int erpret this result as normal/abnormal . [facility] HospitalJintuouKXTTHCXJDL6642-00-36 12:33:00 Test Item Value Reference Range Interpretation Comments Macrocyte (test code = 1+ *ABN*(11/25/21 Macrocyte) 7:33 AM) [facility] HospitalDeudtewFGAIFNTTKB0129-63-89 12:33:00 Test Item Value Reference Range Interpretation Comments WBC (test code = WBC) 5.2 3.7-10.4 [facility] HospitalViummzxVTHCDCXSQZ5837-88-22 12:33:00 Test Item Value Reference Range Interpretation Comments RBC (test code = RBC) 2.18 4.70-6.10 [facility] HospitalZbkwlynQYCUFACGRE7524-47-87 12:33:00 Test Item Value Reference Range Interpretation Comments Hgb (test code = Hgb) 7.8 14.0-18.0 [facility] HospitalKzpgkzqZFRKNYWJRX7311-70-31 12:33:00 Test Item Value Reference Range Interpretation Comments Hct (test code = Hct) 23.6 42.0-54.0 [facility] HospitalFnrevpdPCFUHEBSWH3332-91-89 12:33:00 Test Item Value Reference Range Interpretation Comments MCV (test code = MCV) 108.4 80.0-94.0 [facility] HospitalLheylmwSILWQBPWNR0258-79-22 12:33:00 Test Item Value Reference Range Interpretation Comments MCH (test code = MCH) 35.9 pg 27.0-31.0 [facility] HospitalUpnrfvmDBSFDQEXPN7852-43-70 12:33:00 Test Item Value Reference Range Interpretation Comments MCHC (test code = MCHC) 33.1 32.0-36.0 [facility] HospitalIrymikxKRBMGEXTPN2171-81-44 12:33:00 Test Item Value Reference Range Interpretation Comments RDW (test code = RDW) 21.5 11.5-14.5 [facility] HospitalKnxruluWIGYKSAIMT6415-99-62 12:33:00 Test Item Value Reference Range Interpretation Comments Platelet (test code = Platelet) 167 133-450 [facility] HospitalZuniqhpFFLPNINXYM5203-93-80 12:33:00 Test Item Value Reference Range Interpretation Comments MPV (test code = MPV) 7.6 7.4-10.4 [facility] HospitalVbtmissMJCEVDHXJT5331-72-15 12:33:00 Test Item Value Reference Range Interpretation Comments Segs (test code = Segs) 84.8 45.0-75.0 [place] 152042-06-28 12:33:00 Test Item Value Reference Range Interpretation Comments Lymphocytes (test code = Lymphocytes) 11.6 20.0-40.0 [facility] HospitalPiqllczJQFUAIVXRQ0838-13-32 12:33:00 Test Item Value Reference Range Interpretation Comments Monocytes (test code = Monocytes) 2.8 2.0-12.0 [place] 152042-06-28 12:33:00 Test Item Value Reference Range Interpretation Comments Eosinophils (test code = 0.4 See_Comment [A utomated message] The Eosinophils) system which ge nerated this result tra nsmitted reference range : <=4.0. The reference r samantha was not used to int erpret this result as normal/abnormal . [place] 152042-06-28 12:33:00 Test Item Value Reference Range Interpretation Comments Basophils (test code = 0.4 See_Comment [Aut omated message] The Basophils) system which ge nerated this result tra nsmitted reference range : <=1.0. The reference r samantha was not used to int erpret this result as normal/abnormal . [facility] HospitalSdvzopwAXGUUUKOBV0802-82-24 12:33:00 Test Item Value Reference Range Interpretation Comments Neutrophils # (test code = Neutrophils 4.4 1.5-8.1 #) [facility] HospitalHdqpzleAKOFEAWNWU3000-40-68 12:33:00 Test Item Value Reference Range Interpretation Comments Lymphocytes # (test code = Lymphocytes 0.6 1.0-5.5 #) [facility] HospitalXkjmiimSHAHOYBTWU6568-60-11 12:33:00 Test Item Value Reference Range Interpretation Comments Monocytes # (test code 0.1 See_Comment [Aut omated message] The = Monocytes #) system which generated this result tra nsmitted reference range : <=0.8. The reference r samantha was not used to int erpret this result as normal/abnormal . [facility] HospitalTxjkhdxZYQOGGTHKH3614-86-13 12:33:00 Test Item Value Reference Range Interpretation Comments Macrocyte (test code = 1+ *ABN*(11/25/21 Macrocyte) 7:33 AM) [facility] HospitalWclinjlDTYOOMOWIP7890-45-26 12:33:00 Test Item Value Reference Range Interpretation Comments WBC (test code = WBC) 5.2 3.7-10.4 [place] 152042-06-28 12:33:00 Test Item Value Reference Range Interpretation Comments RBC (test code = RBC) 2.18 4.70-6.10 [place] 152042-06-28 12:33:00 Test Item Value Reference Range Interpretation Comments Hgb (test code = Hgb) 7.8 14.0-18.0 [place] 152042-06-28 12:33:00 Test Item Value Reference Range Interpretation Comments Hct (test code = Hct) 23.6 42.0-54.0 [place] 152042-06-28 12:33:00 Test Item Value Reference Range Interpretation Comments MCV (test code = MCV) 108.4 80.0-94.0 [place] [address]-06-28 12:33:00 Test Item Value Reference Range Interpretation Comments MCH (test code = MCH) 35.9 pg 27.0-31.0 [place] 152042-06-28 12:33:00 Test Item Value Reference Range Interpretation Comments MCHC (test code = MCHC) 33.1 32.0-36.0 [place] 152042-06-28 12:33:00 Test Item Value Reference Range Interpretation Comments RDW (test code = RDW) 21.5 11.5-14.5 [place] 152042-06-28 12:33:00 Test Item Value Reference Range Interpretation Comments Platelet (test code = Platelet) 167 133-450 [place] 152042-06-28 12:33:00 Test Item Value Reference Range Interpretation Comments MPV (test code = MPV) 7.6 7.4-10.4 [place] 152042-06-28 12:33:00 Test Item Value Reference Range Interpretation Comments Segs (test code = Segs) 84.8 45.0-75.0 [place] [address]-06-28 12:33:00 Test Item Value Reference Range Interpretation Comments Lymphocytes (test code = Lymphocytes) 11.6 20.0-40.0 [place] [address]-06-28 12:33:00 Test Item Value Reference Range Interpretation Comments Monocytes (test code = Monocytes) 2.8 2.0-12.0 [place] [address]-06-28 12:33:00 Test Item Value Reference Range Interpretation Comments Eosinophils (test code = 0.4 See_Comment [A utomated message] The Eosinophils) system which ge nerated this result tra nsmitted reference range : <=4.0. The reference r samantha was not used to int erpret this result as normal/abnormal . [facility] [facility] 12:33:00 Test Item Value Reference Range Interpretation Comments Basophils (test code = 0.4 See_Comment [Aut omated message] The Basophils) system which ge nerated this result tra nsmitted reference range : <=1.0. The reference r samantha was not used to int erpret this result as normal/abnormal . [place]2042-06-28 12:33:00 Test Item Value Reference Range Interpretation Comments Neutrophils # (test code = Neutrophils 4.4 1.5-8.1 #) [place] 152042-06-28 12:33:00 Test Item Value Reference Range Interpretation Comments Lymphocytes # (test code = Lymphocytes 0.6 1.0-5.5 #) [place] 152042-06-28 12:33:00 Test Item Value Reference Range Interpretation Comments Monocytes # (test code 0.1 See_Comment [Aut omated message] The = Monocytes #) system which generated this result tra nsmitted reference range : <=0.8. The reference r samantha was not used to int erpret this result as normal/abnormal . [facility]79[facility] 12:33:00 Test Item Value Reference Range Interpretation Comments Macrocyte (test code = 1+ *ABN*(11/25/21 Macrocyte) 7:33 AM) [place] 152042-06-28 12:33:00 Test Item Value Reference Range Interpretation Comments WBC (test code = WBC) 5.2 3.7-10.4 [place] 152042-06-28 12:33:00 Test Item Value Reference Range Interpretation Comments RBC (test code = RBC) 2.18 4.70-6.10 [place] 152042-06-28 12:33:00 Test Item Value Reference Range Interpretation Comments Hgb (test code = Hgb) 7.8 14.0-18.0 [place] 152042-06-28 12:33:00 Test Item Value Reference Range Interpretation Comments Hct (test code = Hct) 23.6 42.0-54.0 [place] 152042-06-28 12:33:00 Test Item Value Reference Range Interpretation Comments MCV (test code = MCV) 108.4 80.0-94.0 [place] 152042-06-28 12:33:00 Test Item Value Reference Range Interpretation Comments MCH (test code = MCH) 35.9 pg 27.0-31.0 [place] 152042-06-28 12:33:00 Test Item Value Reference Range Interpretation Comments MCHC (test code = MCHC) 33.1 32.0-36.0 [place] [address]-06-28 12:33:00 Test Item Value Reference Range Interpretation Comments RDW (test code = RDW) 21.5 11.5-14.5 [place] [address]-06-28 12:33:00 Test Item Value Reference Range Interpretation Comments Platelet (test code = Platelet) 167 133-450 [place] 152042-06-28 12:33:00 Test Item Value Reference Range Interpretation Comments MPV (test code = MPV) 7.6 7.4-10.4 [place] [address]-06-28 12:33:00 Test Item Value Reference Range Interpretation Comments Segs (test code = Segs) 84.8 45.0-75.0 [place] 152042-06-28 12:33:00 Test Item Value Reference Range Interpretation Comments Lymphocytes (test code = Lymphocytes) 11.6 20.0-40.0 [place] 152042-06-28 12:33:00 Test Item Value Reference Range Interpretation Comments Monocytes (test code = Monocytes) 2.8 2.0-12.0 [place] [address]-06-28 12:33:00 Test Item Value Reference Range Interpretation Comments Eosinophils (test code = 0.4 See_Comment [A utomated message] The Eosinophils) system which ge nerated this result tra nsmitted reference range : <=4.0. The reference r samantha was not used to int erpret this result as normal/abnormal . [place] 152042-06-28 12:33:00 Test Item Value Reference Range Interpretation Comments Basophils (test code = 0.4 See_Comment [Aut omated message] The Basophils) system which ge nerated this result tra nsmitted reference range : <=1.0. The reference r samantha was not used to int erpret this result as normal/abnormal . [facility]QelphssDGQIBUDJHQ7101-42-[facility] 12:33:00 Test Item Value Reference Range Interpretation Comments Neutrophils # (test code = Neutrophils 4.4 1.5-8.1 #) [facility] HospitalBgmtsjnEZPJGTKSJS1039-90-00 12:33:00 Test Item Value Reference Range Interpretation Comments Lymphocytes # (test code = Lymphocytes 0.6 1.0-5.5 #) [facility] HospitalJeunrplUHWNNBVYNP7908-69-46 12:33:00 Test Item Value Reference Range Interpretation Comments Monocytes # (test code 0.1 See_Comment [Aut omated message] The = Monocytes #) system which generated this result tra nsmitted reference range : <=0.8. The reference r samantha was not used to int erpret this result as normal/abnormal . [facility] HospitalXynqkoxEVQMYZCGLC9763-65-24 12:33:00 Test Item Value Reference Range Interpretation Comments Macrocyte (test code = 1+ *ABN*(11/25/21 Macrocyte) 7:33 AM) [facility] HospitalIbluznxZHNQZUFWXE5639-00-12 12:33:00 Test Item Value Reference Range Interpretation Comments WBC (test code = WBC) 5.2 3.7-10.4 [facility] HospitalAsszhexVQWATTPQKW5230-27-48 12:33:00 Test Item Value Reference Range Interpretation Comments RBC (test code = RBC) 2.18 4.70-6.10 [facility] HospitalJgfpdhcTPUANJTGVT9779-91-68 12:33:00 Test Item Value Reference Range Interpretation Comments Hgb (test code = Hgb) 7.8 14.0-18.0 [place] 152042-06-28 12:33:00 Test Item Value Reference Range Interpretation Comments Hct (test code = Hct) 23.6 42.0-54.0 [facility] HospitalSyrdaugYURHEPVDXV6197-25-67 12:33:00 Test Item Value Reference Range Interpretation Comments MCV (test code = MCV) 108.4 80.0-94.0 [place] 152042-06-28 12:33:00 Test Item Value Reference Range Interpretation Comments MCH (test code = MCH) 35.9 pg 27.0-31.0 [place] 152042-06-28 12:33:00 Test Item Value Reference Range Interpretation Comments MCHC (test code = MCHC) 33.1 32.0-36.0 [place] 152042-06-28 12:33:00 Test Item Value Reference Range Interpretation Comments RDW (test code = RDW) 21.5 11.5-14.5 [place] 152042-06-28 12:33:00 Test Item Value Reference Range Interpretation Comments Platelet (test code = Platelet) 167 133-450 [place] 152042-06-28 12:33:00 Test Item Value Reference Range Interpretation Comments MPV (test code = MPV) 7.6 7.4-10.4 [place] [address]-06-28 12:33:00 Test Item Value Reference Range Interpretation Comments Segs (test code = Segs) 84.8 45.0-75.0 [place] 152042-06-28 12:33:00 Test Item Value Reference Range Interpretation Comments Lymphocytes (test code = Lymphocytes) 11.6 20.0-40.0 [place] 152042-06-28 12:33:00 Test Item Value Reference Range Interpretation Comments Monocytes (test code = Monocytes) 2.8 2.0-12.0 [place] 152042-06-28 12:33:00 Test Item Value Reference Range Interpretation Comments Eosinophils (test code = 0.4 See_Comment [A utomated message] The Eosinophils) system which ge nerated this result tra nsmitted reference range : <=4.0. The reference r samantha was not used to int erpret this result as normal/abnormal . [place] 152042-06-28 12:33:00 Test Item Value Reference Range Interpretation Comments Basophils (test code = 0.4 See_Comment [Aut omated message] The Basophils) system which ge nerated this result tra nsmitted reference range : <=1.0. The reference r samantha was not used to int erpret this result as normal/abnormal . [place] 152042-06-28 12:33:00 Test Item Value Reference Range Interpretation Comments Neutrophils # (test code = Neutrophils 4.4 1.5-8.1 #) [place] 152042-06-28 12:33:00 Test Item Value Reference Range Interpretation Comments Lymphocytes # (test code = Lymphocytes 0.6 1.0-5.5 #) [place] 152042-06-28 12:33:00 Test Item Value Reference Range Interpretation Comments Monocytes # (test code 0.1 See_Comment [Aut omated message] The = Monocytes #) system which generated this result tra nsmitted reference range : <=0.8. The reference r samantha was not used to int erpret this result as normal/abnormal . [facility] HospitalAfkyafyEEQMABNZVB2606-40-24 12:33:00 Test Item Value Reference Range Interpretation Comments Macrocyte (test code = 1+ *ABN*(11/25/21 Macrocyte) 7:33 AM) [place] 152042-06-28 12:33:00 Test Item Value Reference Range Interpretation Comments WBC (test code = WBC) 5.2 3.7-10.4 [place] 152042-06-28 12:33:00 Test Item Value Reference Range Interpretation Comments RBC (test code = RBC) 2.18 4.70-6.10 [place] 152042-06-28 12:33:00 Test Item Value Reference Range Interpretation Comments Hgb (test code = Hgb) 7.8 14.0-18.0 [place] 152042-06-28 12:33:00 Test Item Value Reference Range Interpretation Comments Hct (test code = Hct) 23.6 42.0-54.0 [place] 152042-06-28 12:33:00 Test Item Value Reference Range Interpretation Comments MCV (test code = MCV) 108.4 80.0-94.0 [place] 152042-06-28 12:33:00 Test Item Value Reference Range Interpretation Comments MCH (test code = MCH) 35.9 pg 27.0-31.0 [place] 152042-06-28 12:33:00 Test Item Value Reference Range Interpretation Comments MCHC (test code = MCHC) 33.1 32.0-36.0 [place] 152042-06-28 12:33:00 Test Item Value Reference Range Interpretation Comments RDW (test code = RDW) 21.5 11.5-14.5 [place] 152042-06-28 12:33:00 Test Item Value Reference Range Interpretation Comments Platelet (test code = Platelet) 167 133-450 [place] 152042-06-28 12:33:00 Test Item Value Reference Range Interpretation Comments MPV (test code = MPV) 7.6 7.4-10.4 [place] 152042-06-28 12:33:00 Test Item Value Reference Range Interpretation Comments Segs (test code = Segs) 84.8 45.0-75.0 [place] 152042-06-28 12:33:00 Test Item Value Reference Range Interpretation Comments Lymphocytes (test code = Lymphocytes) 11.6 20.0-40.0 [place] 152042-06-28 12:33:00 Test Item Value Reference Range Interpretation Comments Monocytes (test code = Monocytes) 2.8 2.0-12.0 [place] 152042-06-28 12:33:00 Test Item Value Reference Range Interpretation Comments Eosinophils (test code = 0.4 See_Comment [A utomated message] The Eosinophils) system which ge nerated this result tra nsmitted reference range : <=4.0. The reference r samantha was not used to int erpret this result as normal/abnormal . [facility] HospitalLyuhvouSAYWHRVFTZ9862-15-34 12:33:00 Test Item Value Reference Range Interpretation Comments Basophils (test code = 0.4 See_Comment [Aut omated message] The Basophils) system which ge nerated this result tra nsmitted reference range : <=1.0. The reference r samantha was not used to int erpret this result as normal/abnormal . [facility] HospitalGzdgmprVKSEIDXHQN3979-95-31 12:33:00 Test Item Value Reference Range Interpretation Comments Neutrophils # (test code = Neutrophils 4.4 1.5-8.1 #) [facility] HospitalKoqedrlQGVCVDCRFM0208-79-71 12:33:00 Test Item Value Reference Range Interpretation Comments Lymphocytes # (test code = Lymphocytes 0.6 1.0-5.5 #) [place] 152042-06-28 12:33:00 Test Item Value Reference Range Interpretation Comments Monocytes # (test code 0.1 See_Comment [Aut omated message] The = Monocytes #) system which generated this result tra nsmitted reference range : <=0.8. The reference r samantha was not used to int erpret this result as normal/abnormal . [facility] HospitalCkdoayeCIGCABJDJJ5112-58-91 12:33:00 Test Item Value Reference Range Interpretation Comments Macrocyte (test code = 1+ *ABN*(11/25/21 Macrocyte) 7:33 AM) [facility] HospitalZybvaxdCRHMZBTQAM2506-47-74 12:33:00 Test Item Value Reference Range Interpretation Comments WBC (test code = WBC) 5.2 3.7-10.4 [place] 152042-06-28 12:33:00 Test Item Value Reference Range Interpretation Comments RBC (test code = RBC) 2.18 4.70-6.10 [place] 152042-06-28 12:33:00 Test Item Value Reference Range Interpretation Comments Hgb (test code = Hgb) 7.8 14.0-18.0 [place] 152042-06-28 12:33:00 Test Item Value Reference Range Interpretation Comments Hct (test code = Hct) 23.6 42.0-54.0 [place] 152042-06-28 12:33:00 Test Item Value Reference Range Interpretation Comments MCV (test code = MCV) 108.4 80.0-94.0 [place] 152042-06-28 12:33:00 Test Item Value Reference Range Interpretation Comments MCH (test code = MCH) 35.9 pg 27.0-31.0 [facility] HospitalMiynetrYBIAOBMHWA0553-00-18 12:33:00 Test Item Value Reference Range Interpretation Comments MCHC (test code = MCHC) 33.1 32.0-36.0 [facility] HospitalIwuwbqwPLRUTZJSJN0263-64-38 12:33:00 Test Item Value Reference Range Interpretation Comments RDW (test code = RDW) 21.5 11.5-14.5 [place] 152042-06-28 12:33:00 Test Item Value Reference Range Interpretation Comments Platelet (test code = Platelet) 167 133-450 [facility] HospitalViysqxdWDKZGBIKWP5847-48-37 12:33:00 Test Item Value Reference Range Interpretation Comments MPV (test code = MPV) 7.6 7.4-10.4 [place] 152042-06-28 12:33:00 Test Item Value Reference Range Interpretation Comments Segs (test code = Segs) 84.8 45.0-75.0 [place] 152042-06-28 12:33:00 Test Item Value Reference Range Interpretation Comments Lymphocytes (test code = Lymphocytes) 11.6 20.0-40.0 [place] 152042-06-28 12:33:00 Test Item Value Reference Range Interpretation Comments Monocytes (test code = Monocytes) 2.8 2.0-12.0 [place] 152042-06-28 12:33:00 Test Item Value Reference Range Interpretation Comments Eosinophils (test code = 0.4 See_Comment [A utomated message] The Eosinophils) system which ge nerated this result tra nsmitted reference range : <=4.0. The reference r samantha was not used to int erpret this result as normal/abnormal . [place] 152042-06-28 12:33:00 Test Item Value Reference Range Interpretation Comments Basophils (test code = 0.4 See_Comment [Aut omated message] The Basophils) system which ge nerated this result tra nsmitted reference range : <=1.0. The reference r samantha was not used to int erpret this result as normal/abnormal . [facility] HospitalIzkiqyxITZZXMDIEK1585-46-96 12:33:00 Test Item Value Reference Range Interpretation Comments Neutrophils # (test code = Neutrophils 4.4 1.5-8.1 #) [facility] HospitalIlcihdiFDQGYSGXUG6767-81-96 12:33:00 Test Item Value Reference Range Interpretation Comments Lymphocytes # (test code = Lymphocytes 0.6 1.0-5.5 #) [place] 152042-06-28 12:33:00 Test Item Value Reference Range Interpretation Comments Monocytes # (test code 0.1 See_Comment [Aut omated message] The = Monocytes #) system which generated this result tra nsmitted reference range : <=0.8. The reference r samantha was not used to int erpret this result as normal/abnormal . [facility] HospitalZwuishnHEEIURHHOA1585-52-45 12:33:00 Test Item Value Reference Range Interpretation Comments Macrocyte (test code = 1+ *ABN*(11/25/21 Macrocyte) 7:33 AM) [facility] HospitalPqvcvdgIXSCLZBLMQ9826-90-34 12:33:00 Test Item Value Reference Range Interpretation Comments WBC (test code = WBC) 5.2 3.7-10.4 [place] 152042-06-28 12:33:00 Test Item Value Reference Range Interpretation Comments RBC (test code = RBC) 2.18 4.70-6.10 [place] [address]-06-28 12:33:00 Test Item Value Reference Range Interpretation Comments Hgb (test code = Hgb) 7.8 14.0-18.0 [place] [address]-06-28 12:33:00 Test Item Value Reference Range Interpretation Comments Hct (test code = Hct) 23.6 42.0-54.0 [place] 152042-06-28 12:33:00 Test Item Value Reference Range Interpretation Comments MCV (test code = MCV) 108.4 80.0-94.0 [place] [address]-06-28 12:33:00 Test Item Value Reference Range Interpretation Comments MCH (test code = MCH) 35.9 pg 27.0-31.0 [place] 152042-06-28 12:33:00 Test Item Value Reference Range Interpretation Comments MCHC (test code = MCHC) 33.1 32.0-36.0 [place] 152042-06-28 12:33:00 Test Item Value Reference Range Interpretation Comments RDW (test code = RDW) 21.5 11.5-14.5 [place] 152042-06-28 12:33:00 Test Item Value Reference Range Interpretation Comments Platelet (test code = Platelet) 167 133-450 [facility] HospitalKacnhkwSBIBCRLPAQ2357-94-80 12:33:00 Test Item Value Reference Range Interpretation Comments MPV (test code = MPV) 7.6 7.4-10.4 [place] 152042-06-28 12:33:00 Test Item Value Reference Range Interpretation Comments Segs (test code = Segs) 84.8 45.0-75.0 [place] [address]-06-28 12:33:00 Test Item Value Reference Range Interpretation Comments Lymphocytes (test code = Lymphocytes) 11.6 20.0-40.0 [place] [address]-06-28 12:33:00 Test Item Value Reference Range Interpretation Comments Monocytes (test code = Monocytes) 2.8 2.0-12.0 [place] 152042-06-28 12:33:00 Test Item Value Reference Range Interpretation Comments Eosinophils (test code = 0.4 See_Comment [A utomated message] The Eosinophils) system which ge nerated this result tra nsmitted reference range : <=4.0. The reference r samantha was not used to int erpret this result as normal/abnormal . [facility] HospitalWgefaewPJFFSZIBDH3849-59-34 12:33:00 Test Item Value Reference Range Interpretation Comments Basophils (test code = 0.4 See_Comment [Aut omated message] The Basophils) system which ge nerated this result tra nsmitted reference range : <=1.0. The reference r samantha was not used to int erpret this result as normal/abnormal . [facility] HospitalVuqfywvQJJNALWWBF6722-53-50 12:33:00 Test Item Value Reference Range Interpretation Comments Neutrophils # (test code = Neutrophils 4.4 1.5-8.1 #) [facility] HospitalBgukabmZCGBCAEOMU4893-25-36 12:33:00 Test Item Value Reference Range Interpretation Comments Lymphocytes # (test code = Lymphocytes 0.6 1.0-5.5 #) [facility] HospitalKtoqesuHSZQPTDMAD5696-96-36 12:33:00 Test Item Value Reference Range Interpretation Comments Monocytes # (test code 0.1 See_Comment [Aut omated message] The = Monocytes #) system which generated this result tra nsmitted reference range : <=0.8. The reference r samantha was not used to int erpret this result as normal/abnormal . [facility] HospitalRpxqhvpIRLUNLXMMJ9604-05-33 12:33:00 Test Item Value Reference Range Interpretation Comments Macrocyte (test code = 1+ *ABN*(11/25/21 Macrocyte) 7:33 AM) [facility] HospitalJooznwoTKSGYZVWZE4336-94-51 12:33:00 Test Item Value Reference Range Interpretation Comments WBC (test code = WBC) 5.2 3.7-10.4 [place] 152042-06-28 12:33:00 Test Item Value Reference Range Interpretation Comments RBC (test code = RBC) 2.18 4.70-6.10 [facility] HospitalQahjxwkXFQHHYVQNS8934-36-32 12:33:00 Test Item Value Reference Range Interpretation Comments Hgb (test code = Hgb) 7.8 14.0-18.0 [place] 152042-06-28 12:33:00 Test Item Value Reference Range Interpretation Comments Hct (test code = Hct) 23.6 42.0-54.0 [place] 152042-06-28 12:33:00 Test Item Value Reference Range Interpretation Comments MCV (test code = MCV) 108.4 80.0-94.0 [place] 152042-06-28 12:33:00 Test Item Value Reference Range Interpretation Comments MCH (test code = MCH) 35.9 pg 27.0-31.0 [place] 152042-06-28 12:33:00 Test Item Value Reference Range Interpretation Comments MCHC (test code = MCHC) 33.1 32.0-36.0 [place] 152042-06-28 12:33:00 Test Item Value Reference Range Interpretation Comments RDW (test code = RDW) 21.5 11.5-14.5 [place] 152042-06-28 12:33:00 Test Item Value Reference Range Interpretation Comments Platelet (test code = Platelet) 167 133-450 [place] 152042-06-28 12:33:00 Test Item Value Reference Range Interpretation Comments MPV (test code = MPV) 7.6 7.4-10.4 [place] 152042-06-28 12:33:00 Test Item Value Reference Range Interpretation Comments Segs (test code = Segs) 84.8 45.0-75.0 [place] 152042-06-28 12:33:00 Test Item Value Reference Range Interpretation Comments Lymphocytes (test code = Lymphocytes) 11.6 20.0-40.0 [place] 152042-06-28 12:33:00 Test Item Value Reference Range Interpretation Comments Monocytes (test code = Monocytes) 2.8 2.0-12.0 [place] [address]-06-28 12:33:00 Test Item Value Reference Range Interpretation Comments Eosinophils (test code = 0.4 See_Comment [A utomated message] The Eosinophils) system which ge nerated this result tra nsmitted reference range : <=4.0. The reference r samantha was not used to int erpret this result as normal/abnormal . [place] 152042-06-28 12:33:00 Test Item Value Reference Range Interpretation Comments Basophils (test code = 0.4 See_Comment [Aut omated message] The Basophils) system which ge nerated this result tra nsmitted reference range : <=1.0. The reference r samantha was not used to int erpret this result as normal/abnormal . [facility] HospitalJrsrmztAFUAGESTVM4178-04-71 12:33:00 Test Item Value Reference Range Interpretation Comments Neutrophils # (test code = Neutrophils 4.4 1.5-8.1 #) [place] 152042-06-28 12:33:00 Test Item Value Reference Range Interpretation Comments Lymphocytes # (test code = Lymphocytes 0.6 1.0-5.5 #) [place] 152042-06-28 12:33:00 Test Item Value Reference Range Interpretation Comments Monocytes # (test code 0.1 See_Comment [Aut omated message] The = Monocytes #) system which generated this result tra nsmitted reference range : <=0.8. The reference r samantha was not used to int erpret this result as normal/abnormal . [facility] HospitalSlphpqbGDHNZICDVO7069-22-66 12:33:00 Test Item Value Reference Range Interpretation Comments Macrocyte (test code = 1+ *ABN*(11/25/21 Macrocyte) 7:33 AM) [place] [address]-06-28 12:33:00 Test Item Value Reference Range Interpretation Comments WBC (test code = WBC) 5.2 3.7-10.4 [facility] HospitalUdryyvpUHMDEFQKNM6475-40-03 12:33:00 Test Item Value Reference Range Interpretation Comments RBC (test code = RBC) 2.18 4.70-6.10 [place] 152042-06-28 12:33:00 Test Item Value Reference Range Interpretation Comments Hgb (test code = Hgb) 7.8 14.0-18.0 [place] 152042-06-28 12:33:00 Test Item Value Reference Range Interpretation Comments Hct (test code = Hct) 23.6 42.0-54.0 [place] 152042-06-28 12:33:00 Test Item Value Reference Range Interpretation Comments MCV (test code = MCV) 108.4 80.0-94.0 [place] 152042-06-28 12:33:00 Test Item Value Reference Range Interpretation Comments MCH (test code = MCH) 35.9 pg 27.0-31.0 [place] 152042-06-28 12:33:00 Test Item Value Reference Range Interpretation Comments MCHC (test code = MCHC) 33.1 32.0-36.0 [place] 152042-06-28 12:33:00 Test Item Value Reference Range Interpretation Comments RDW (test code = RDW) 21.5 11.5-14.5 [place] 152042-06-28 12:33:00 Test Item Value Reference Range Interpretation Comments Platelet (test code = Platelet) 167 133-450 [place] 152042-06-28 12:33:00 Test Item Value Reference Range Interpretation [...] (test code = Ferritin Lvl) 1423 22275 [facility]2022-06-28 11:17:00 Test Item Value Reference Range Interpretation Comments Glucose Lvl (test code = Glucose Lvl) 205 70-99 [facility]2022-06-28 11:17:00 Test Item Value Reference Range Interpretation Comments BUN (test code = BUN) 60 7-22 [place] 074992-06-28 11:17:00 Test Item Value Reference Range Interpretation Comments Creatinine Lvl (test code = Creatinine 8.46 0.50-1.40 Lvl) [place] 074992-06-28 11:17:00 Test Item Value Reference Range Interpretation Comments Sodium Lvl (test code = Sodium Lvl) 131 135-145 [place] 074992-06-28 11:17:00 Test Item Value Reference Range Interpretation Comments Potassium Lvl (test code = Potassium 5.2 3.5-5.1 Lvl) [place] 074992-06-28 11:17:00 Test Item Value Reference Range Interpretation Comments Chloride Lvl (test code = Chloride Lvl) 93 95-109 [facility]2022-06-28 11:17:00 Test Item Value Reference Range Interpretation Comments CO2 (test code = CO2) 29 24-32 [facility]2022-06-28 11:17:00 Test Item Value Reference Range Interpretation Comments Calcium Lvl (test code = Calcium Lvl) 8.7 8.5-10.5 [facility]2022-06-28 11:17:00 Test Item Value Reference Range Interpretation Comments Total Protein (test code = Total 6.0 6.4-8.4 Protein) [facility]2022-06-28 11:17:00 Test Item Value Reference Range Interpretation Comments Albumin Lvl (test code = Albumin Lvl) 2.6 3.5-5.0 [facility]2022-06-28 11:17:00 Test Item Value Reference Range Interpretation Comments ALT (test code = ALT) 43 See_Comment [Auto mated message] The system which ge nerated this result transmit swathi reference range : <=65. The reference range was not used to interpr et this result as deny l/abnormal. [facility]2022-06-28 11:17:00 Test Item Value Reference Range Interpretation Comments AST (test code = AST) 35 See_Comment [Auto mated message] The system which ge nerated this result transmit swathi reference range : <=37. The reference range was not used to interpr et this result as deny l/abnormal. [facility]2022-06-28 11:17:00 Test Item Value Reference Range Interpretation Comments Alk Phos (test code = Alk Phos) 385 39-136 [facility]2022-06-28 11:17:00 Test Item Value Reference Range Interpretation Comments Bili Total (test code = Bili Total) 1.2 0.2-1.3 [facility]2022-06-28 11:17:00 Test Item Value Reference Range Interpretation Comments AGAP (test code = AGAP) 14.2 10.0-20.0 [facility]2022-06-28 11:17:00 Test Item Value Reference Range Interpretation Comments B/C Ratio (test code = B/C Ratio) 7 1 6-25 [facility]2022-06-28 11:17:00 Test Item Value Reference Range Interpretation Comments Globulin (test code = Globulin) 3.4 2.7-4.2 [facility]2022-06-28 11:17:00 Test Item Value Reference Range Interpretation Comments A/G Ratio (test code = A/G Ratio) 0.8 1 0.7-1.6 [facility]2022-06-28 11:17:00 Test Item Value Reference Range Interpretation Comments eGFR (test code = eGFR) 6 [facility]2022-06-28 11:17:00 Test Item Value Reference Range Interpretation Comments Magnesium Lvl (test code = Magnesium 1.9 1.8-2.4 Lvl) [facility]2022-06-28 11:17:00 Test Item Value Reference Range Interpretation Comments LDH (test code = LDH) 297 98-192 [facility]2022-06-28 11:17:00 Test Item Value Reference Range Interpretation Comments Procalcitonin Lvl (test 0.63 See_Comment [Au tomated message] code = Procalcitonin Lvl) e system which generated this result transmitted ref erence range: <=0.10. The reference range was not used to interpr et this result as normal/abnormal . [id number] 11:17:00 Test Item Value Reference Range Interpretation Comments D-Dimer (test code = D-Dimer) 5.33 [id number] 11:17:00 Test Item Value Reference Range Interpretation Comments Hep Bs Ag (test code Negative *NA*(11/25/21 = Hep Bs Ag) 6:17 AM) [facility]167[facility] 11:17:00 Test Item Value Reference Range Interpretation Comments C-REACTIVE PROTEIN (test code = 134.0 C-REACTIVE PROTEIN) [facility]VzazcxtPXUMFTEAPG3915-53-14 11:17:00 Test Item Value Reference Range Interpretation [...] Lvl (test code = Ferritin Lvl) 1423 77-275 [facility]2022-06-28 11:17:00 Test Item Value Reference Range Interpretation Comments Glucose Lvl (test code = Glucose Lvl) 205 70-99 [facility]2022-06-28 11:17:00 Test Item Value Reference Range Interpretation Comments BUN (test code = BUN) 60 7-22 [facility]2022-06-28 11:17:00 Test Item Value Reference Range Interpretation Comments Creatinine Lvl (test code = Creatinine 8.46 0.50-1.40 Lvl) [facility]2022-06-28 11:17:00 Test Item Value Reference Range Interpretation Comments Sodium Lvl (test code = Sodium Lvl) 131 135-145 [facility]2022-06-28 11:17:00 Test Item Value Reference Range Interpretation Comments Potassium Lvl (test code = Potassium 5.2 3.5-5.1 Lvl) [facility]2022-06-28 11:17:00 Test Item Value Reference Range Interpretation Comments Chloride Lvl (test code = Chloride Lvl) 93 95-109 [facility]2022-06-28 11:17:00 Test Item Value Reference Range Interpretation Comments CO2 (test code = CO2) 29 24-32 [facility]2022-06-28 11:17:00 Test Item Value Reference Range Interpretation Comments Calcium Lvl (test code = Calcium Lvl) 8.7 8.5-10.5 [facility]2022-06-28 11:17:00 Test Item Value Reference Range Interpretation Comments Total Protein (test code = Total 6.0 6.4-8.4 Protein) [facility]2022-06-28 11:17:00 Test Item Value Reference Range Interpretation Comments Albumin Lvl (test code = Albumin Lvl) 2.6 3.5-5.0 [facility]2022-06-28 11:17:00 Test Item Value Reference Range Interpretation Comments ALT (test code = ALT) 43 See_Comment [Auto mated message] The system which ge nerated this result transmit swathi reference range : <=65. The reference range was not used to interpr et this result as deny l/abnormal. [facility] [id number] 11:17:00 Test Item Value Reference Range Interpretation Comments AST (test code = AST) 35 See_Comment [Auto mated message] The system which ge nerated this result transmit swathi reference range : <=37. The reference range was not used to interpr et this result as deny l/abnormal. [facility] [id number] 11:17:00 Test Item Value Reference Range Interpretation Comments Alk Phos (test code = Alk Phos) 385 39-136 [facility] [id number] 11:17:00 Test Item Value Reference Range Interpretation Comments Bili Total (test code = Bili Total) 1.2 0.2-1.3 [facility] [id number] 11:17:00 Test Item Value Reference Range Interpretation Comments AGAP (test code = AGAP) 14.2 10.0-20.0 [facility] [id number] 11:17:00 Test Item Value Reference Range Interpretation Comments B/C Ratio (test code = B/C Ratio) 7 1 6-25 [facility] [id number] 11:17:00 Test Item Value Reference Range Interpretation Comments Globulin (test code = Globulin) 3.4 2.7-4.2 [facility] [id number] 11:17:00 Test Item Value Reference Range Interpretation Comments A/G Ratio (test code = A/G Ratio) 0.8 1 0.7-1.6 [facility] [id number] 11:17:00 Test Item Value Reference Range Interpretation Comments eGFR (test code = eGFR) 6 [facility] [id number] 11:17:00 Test Item Value Reference Range Interpretation Comments Magnesium Lvl (test code = Magnesium 1.9 1.8-2.4 Lvl) [facility] [id number] 11:17:00 Test Item Value Reference Range Interpretation Comments LDH (test code = LDH) 297 98-192 [facility] [id number] 11:17:00 Test Item Value Reference Range Interpretation Comments Procalcitonin Lvl (test 0.63 See_Comment [Au tomated message] code = Procalcitonin Lvl) Th e system which generated this result transmitted ref erence range: <=0.10. The reference range was not used to interpr et this result as normal/abnormal . [id number] 11:17:00 Test Item Value Reference Range Interpretation Comments D-Dimer (test code = D-Dimer) 5.33 [place] 115822-06-28 11:17:00 Test Item Value Reference Range Interpretation Comments Hep Bs Ag (test code Negative *NA*(11/25/21 = Hep Bs Ag) 6:17 AM) [place] 115822-06-28 11:17:00 Test Item Value Reference Range Interpretation Comments C-REACTIVE PROTEIN (test code = 134.0 C-REACTIVE PROTEIN) [place] 115822-06-28 11:17:00 Test Item Value Reference Range Interpretation [...] (test code = Ferritin Lvl) 1423 22-275 [facility]2022-06-28 11:17:00 Test Item Value Reference Range Interpretation Comments Glucose Lvl (test code = Glucose Lvl) 205 70-99 [facility]2022-06-28 11:17:00 Test Item Value Reference Range Interpretation Comments BUN (test code = BUN) 60 7-22 [facility]2022-06-28 11:17:00 Test Item Value Reference Range Interpretation Comments Creatinine Lvl (test code = Creatinine 8.46 0.50-1.40 Lvl) [facility]2022-06-28 11:17:00 Test Item Value Reference Range Interpretation Comments Sodium Lvl (test code = Sodium Lvl) 131 135-145 [facility]2022-06-28 11:17:00 Test Item Value Reference Range Interpretation Comments Potassium Lvl (test code = Potassium 5.2 3.5-5.1 Lvl) [place] 074992-06-28 11:17:00 Test Item Value Reference Range Interpretation Comments Chloride Lvl (test code = Chloride Lvl) 93 95-109 [place] 074992-06-28 11:17:00 Test Item Value Reference Range Interpretation Comments CO2 (test code = CO2) 29 24-32 [place] 074992-06-28 11:17:00 Test Item Value Reference Range Interpretation Comments Calcium Lvl (test code = Calcium Lvl) 8.7 8.5-10.5 [place] 074992-06-28 11:17:00 Test Item Value Reference Range Interpretation Comments Total Protein (test code = Total 6.0 6.4-8.4 Protein) [place] 074992-06-28 11:17:00 Test Item Value Reference Range Interpretation Comments Albumin Lvl (test code = Albumin Lvl) 2.6 3.5-5.0 [place] 074992-06-28 11:17:00 Test Item Value Reference Range Interpretation Comments ALT (test code = ALT) 43 See_Comment [Auto mated message] The system which ge nerated this result transmit sawthi reference range : <=65. The reference range was not used to interpr et this result as deny l/abnormal. [place] 074992-06-28 11:17:00 Test Item Value Reference Range Interpretation Comments AST (test code = AST) 35 See_Comment [Auto mated message] The system which ge nerated this result transmit swathi reference range : <=37. The reference range was not used to interpr et this result as deny l/abnormal. [place] 074992-06-28 11:17:00 Test Item Value Reference Range Interpretation Comments Alk Phos (test code = Alk Phos) 385 39-136 [place] 074992-06-28 11:17:00 Test Item Value Reference Range Interpretation Comments Bili Total (test code = Bili Total) 1.2 0.2-1.3 [place] 074992-06-28 11:17:00 Test Item Value Reference Range Interpretation Comments AGAP (test code = AGAP) 14.2 10.0-20.0 [facility]2022-06-28 11:17:00 Test Item Value Reference Range Interpretation Comments B/C Ratio (test code = B/C Ratio) 7 1 6-25 [facility]2022-06-28 11:17:00 Test Item Value Reference Range Interpretation Comments Globulin (test code = Globulin) 3.4 2.7-4.2 [facility]2022-06-28 11:17:00 Test Item Value Reference Range Interpretation Comments A/G Ratio (test code = A/G Ratio) 0.8 1 0.7-1.6 [facility]2022-06-28 11:17:00 Test Item Value Reference Range Interpretation Comments eGFR (test code = eGFR) 6 [facility]2022-06-28 11:17:00 Test Item Value Reference Range Interpretation Comments Magnesium Lvl (test code = Magnesium 1.9 1.8-2.4 Lvl) [facility]2022-06-28 11:17:00 Test Item Value Reference Range Interpretation Comments LDH (test code = LDH) 297 98-192 [facility]2022-06-28 11:17:00 Test Item Value Reference Range Interpretation Comments Procalcitonin Lvl (test 0.63 See_Comment [Au tomated message] code = Procalcitonin Lvl) e system which generated this result transmitted ref erence range: <=0.10. The reference range was not used to interpr et this result as normal/abnormal . [id number] 11:17:00 Test Item Value Reference Range Interpretation Comments D-Dimer (test code = D-Dimer) 5.33 [facility] [id number] 11:17:00 Test Item Value Reference Range Interpretation Comments Hep Bs Ag (test code Negative *NA*(11/25/21 = Hep Bs Ag) 6:17 AM) [facility] HospitalEwwuwotHKWDNBKHPA3203-64-80 11:17:00 Test Item Value Reference Range Interpretation Comments C-REACTIVE PROTEIN (test code = 134.0 C-REACTIVE PROTEIN) [id number] 11:17:00 Test Item Value Reference Range Interpretation [...] (test code = Ferritin Lvl) 1423 22-275 [facility]2022-06-28 11:17:00 Test Item Value Reference Range Interpretation Comments Glucose Lvl (test code = Glucose Lvl) 205 70-99 [facility]2022-06-28 11:17:00 Test Item Value Reference Range Interpretation Comments BUN (test code = BUN) 60 7-22 [place] 074992-06-28 11:17:00 Test Item Value Reference Range Interpretation Comments Creatinine Lvl (test code = Creatinine 8.46 0.50-1.40 Lvl) [facility]2022-06-28 11:17:00 Test Item Value Reference Range Interpretation Comments Sodium Lvl (test code = Sodium Lvl) 131 135-145 [place] 074992-06-28 11:17:00 Test Item Value Reference Range Interpretation Comments Potassium Lvl (test code = Potassium 5.2 3.5-5.1 Lvl) [facility]2022-06-28 11:17:00 Test Item Value Reference Range Interpretation Comments Chloride Lvl (test code = Chloride Lvl) 93 95-109 [facility]2022-06-28 11:17:00 Test Item Value Reference Range Interpretation Comments CO2 (test code = CO2) 29 24-32 [place] 074992-06-28 11:17:00 Test Item Value Reference Range Interpretation Comments Calcium Lvl (test code = Calcium Lvl) 8.7 8.5-10.5 [facility]2022-06-28 11:17:00 Test Item Value Reference Range Interpretation Comments Total Protein (test code = Total 6.0 6.4-8.4 Protein) [facility]2022-06-28 11:17:00 Test Item Value Reference Range Interpretation Comments Albumin Lvl (test code = Albumin Lvl) 2.6 3.5-5.0 [facility] [id number] 11:17:00 Test Item Value Reference Range Interpretation Comments ALT (test code = ALT) 43 See_Comment [Auto mated message] The system which ge nerated this result transmit swathi reference range : <=65. The reference range was not used to interpr et this result as deny l/abnormal. [facility] [id number] 11:17:00 Test Item Value Reference Range Interpretation Comments AST (test code = AST) 35 See_Comment [Auto mated message] The system which ge nerated this result transmit swathi reference range : <=37. The reference range was not used to interpr et this result as deny l/abnormal. [facility] [id number] 11:17:00 Test Item Value Reference Range Interpretation Comments Alk Phos (test code = Alk Phos) 385 39-136 [facility] [id number] 11:17:00 Test Item Value Reference Range Interpretation Comments Bili Total (test code = Bili Total) 1.2 0.2-1.3 [facility] [id number] 11:17:00 Test Item Value Reference Range Interpretation Comments AGAP (test code = AGAP) 14.2 10.0-20.0 [facility] [id number] 11:17:00 Test Item Value Reference Range Interpretation Comments B/C Ratio (test code = B/C Ratio) 7 1 6-25 [facility] [id number] 11:17:00 Test Item Value Reference Range Interpretation Comments Globulin (test code = Globulin) 3.4 2.7-4.2 [facility] [id number] 11:17:00 Test Item Value Reference Range Interpretation Comments A/G Ratio (test code = A/G Ratio) 0.8 1 0.7-1.6 [facility] [id number] 11:17:00 Test Item Value Reference Range Interpretation Comments eGFR (test code = eGFR) 6 [facility] [id number] 11:17:00 Test Item Value Reference Range Interpretation Comments Magnesium Lvl (test code = Magnesium 1.9 1.8-2.4 Lvl) [facility] [id number] 11:17:00 Test Item Value Reference Range Interpretation Comments LDH (test code = LDH) 297 98-192 [facility]2022-06-28 11:17:00 Test Item Value Reference Range Interpretation Comments Procalcitonin Lvl (test 0.63 See_Comment [Au tomated message] code = Procalcitonin Lvl) e system which generated this result transmitted ref erence range: <=0.10. The reference range was not used to interpr et this result as normal/abnormal . [facility] HospitalReprkyeLSWCXDHMKX6077-17-94 11:17:00 Test Item Value Reference Range Interpretation Comments D-Dimer (test code = D-Dimer) 5.33 [facility] HospitalDueonchJODSCDXLNA2718-57-14 11:17:00 Test Item Value Reference Range Interpretation Comments Hep Bs Ag (test code Negative *NA*(11/25/21 = Hep Bs Ag) 6:17 AM) [place] 115822-06-28 11:17:00 Test Item Value Reference Range Interpretation Comments C-REACTIVE PROTEIN (test code = 134.0 C-REACTIVE PROTEIN) [facility]KcfdqqpMJAHRIIOUB9785-80-73 11:17:00 Test Item Value Reference Range Interpretation [...] (test code = Ferritin Lvl) 1423 22-275 [facility]2022-06-28 11:17:00 Test Item Value Reference Range Interpretation Comments Glucose Lvl (test code = Glucose Lvl) 205 70-99 [facility]2022-06-28 11:17:00 Test Item Value Reference Range Interpretation Comments BUN (test code = BUN) 60 7-22 [facility]2022-06-28 11:17:00 Test Item Value Reference Range Interpretation Comments Creatinine Lvl (test code = Creatinine 8.46 0.50-1.40 Lvl) [place] 074992-06-28 11:17:00 Test Item Value Reference Range Interpretation Comments Sodium Lvl (test code = Sodium Lvl) 131 135-145 [place] 074992-06-28 11:17:00 Test Item Value Reference Range Interpretation Comments Potassium Lvl (test code = Potassium 5.2 3.5-5.1 Lvl) [place] 074992-06-28 11:17:00 Test Item Value Reference Range Interpretation Comments Chloride Lvl (test code = Chloride Lvl) 93 95-109 [place] 074992-06-28 11:17:00 Test Item Value Reference Range Interpretation Comments CO2 (test code = CO2) 29 24-32 [place] 074992-06-28 11:17:00 Test Item Value Reference Range Interpretation Comments Calcium Lvl (test code = Calcium Lvl) 8.7 8.5-10.5 [place] 074992-06-28 11:17:00 Test Item Value Reference Range Interpretation Comments Total Protein (test code = Total 6.0 6.4-8.4 Protein) [place] 074992-06-28 11:17:00 Test Item Value Reference Range Interpretation Comments Albumin Lvl (test code = Albumin Lvl) 2.6 3.5-5.0 [place] 074992-06-28 11:17:00 Test Item Value Reference Range Interpretation Comments ALT (test code = ALT) 43 See_Comment [Auto mated message] The system which ge nerated this result transmit swathi reference range : <=65. The reference range was not used to interpr et this result as deny l/abnormal. [place] 074992-06-28 11:17:00 Test Item Value Reference Range Interpretation Comments AST (test code = AST) 35 See_Comment [Auto mated message] The system which ge nerated this result transmit swathi reference range : <=37. The reference range was not used to interpr et this result as deny l/abnormal. [place] 074992-06-28 11:17:00 Test Item Value Reference Range Interpretation Comments Alk Phos (test code = Alk Phos) 385 39-136 [place] 074992-06-28 11:17:00 Test Item Value Reference Range Interpretation Comments Bili Total (test code = Bili Total) 1.2 0.2-1.3 [facility]2022-06-28 11:17:00 Test Item Value Reference Range Interpretation Comments AGAP (test code = AGAP) 14.2 10.0-20.0 [facility]2022-06-28 11:17:00 Test Item Value Reference Range Interpretation Comments B/C Ratio (test code = B/C Ratio) 7 1 6-25 [facility]2022-06-28 11:17:00 Test Item Value Reference Range Interpretation Comments Globulin (test code = Globulin) 3.4 2.7-4.2 [facility]2022-06-28 11:17:00 Test Item Value Reference Range Interpretation Comments A/G Ratio (test code = A/G Ratio) 0.8 1 0.7-1.6 [facility]2022-06-28 11:17:00 Test Item Value Reference Range Interpretation Comments eGFR (test code = eGFR) 6 [facility]2022-06-28 11:17:00 Test Item Value Reference Range Interpretation Comments Magnesium Lvl (test code = Magnesium 1.9 1.8-2.4 Lvl) [facility]2022-06-28 11:17:00 Test Item Value Reference Range Interpretation Comments LDH (test code = LDH) 297 98-192 [facility]2022-06-28 11:17:00 Test Item Value Reference Range Interpretation Comments Procalcitonin Lvl (test 0.63 See_Comment [Au tomated message] code = Procalcitonin Lvl) Th e system which generated this result transmitted ref erence range: <=0.10. The reference range was not used to interpr et this result as normal/abnormal . [facility] HospitalWamanbpNTZNHNRZRQ8759-19-20 11:17:00 Test Item Value Reference Range Interpretation Comments D-Dimer (test code = D-Dimer) 5.33 [facility] HospitalZnkvztgIGBVBUOWVU5940-49-17 11:17:00 Test Item Value Reference Range Interpretation Comments Hep Bs Ag (test code Negative *NA*(11/25/21 = Hep Bs Ag) 6:17 AM) [facility] HospitalRlrlzxsEIJGOZPIRX2787-29-30 11:17:00 Test Item Value Reference Range Interpretation Comments C-REACTIVE PROTEIN (test code = 134.0 C-REACTIVE PROTEIN) [facility] H[id number] 11:17:00 Test Item Value Reference Range Interpretation [...] (test code = Ferritin Lvl) 1423 22-275 [facility]2022-06-28 11:17:00 Test Item Value Reference Range Interpretation Comments Glucose Lvl (test code = Glucose Lvl) 205 70-99 [facility]2022-06-28 11:17:00 Test Item Value Reference Range Interpretation Comments BUN (test code = BUN) 60 7-22 [facility]2022-06-28 11:17:00 Test Item Value Reference Range Interpretation Comments Creatinine Lvl (test code = Creatinine 8.46 0.50-1.40 Lvl) [facility]2022-06-28 11:17:00 Test Item Value Reference Range Interpretation Comments Sodium Lvl (test code = Sodium Lvl) 131 135-145 [facility]2022-06-28 11:17:00 Test Item Value Reference Range Interpretation Comments Potassium Lvl (test code = Potassium 5.2 3.5-5.1 Lvl) [facility]2022-06-28 11:17:00 Test Item Value Reference Range Interpretation Comments Chloride Lvl (test code = Chloride Lvl) 93 95-109 [facility]2022-06-28 11:17:00 Test Item Value Reference Range Interpretation Comments CO2 (test code = CO2) 29 24-32 [facility]2022-06-28 11:17:00 Test Item Value Reference Range Interpretation Comments Calcium Lvl (test code = Calcium Lvl) 8.7 8.5-10.5 [facility]2022-06-28 11:17:00 Test Item Value Reference Range Interpretation Comments Total Protein (test code = Total 6.0 6.4-8.4 Protein) [facility] [id number] 11:17:00 Test Item Value Reference Range Interpretation Comments Albumin Lvl (test code = Albumin Lvl) 2.6 3.5-5.0 [facility] [id number] 11:17:00 Test Item Value Reference Range Interpretation Comments ALT (test code = ALT) 43 See_Comment [Auto mated message] The system which ge nerated this result transmit swathi reference range : <=65. The reference range was not used to interpr et this result as deny l/abnormal. [facility] [id number] 11:17:00 Test Item Value Reference Range Interpretation Comments AST (test code = AST) 35 See_Comment [Auto mated message] The system which ge nerated this result transmit swathi reference range : <=37. The reference range was not used to interpr et this result as deny l/abnormal. [facility] [id number] 11:17:00 Test Item Value Reference Range Interpretation Comments Alk Phos (test code = Alk Phos) 385 39-136 [facility] [id number] 11:17:00 Test Item Value Reference Range Interpretation Comments Bili Total (test code = Bili Total) 1.2 0.2-1.3 [facility] [id number] 11:17:00 Test Item Value Reference Range Interpretation Comments AGAP (test code = AGAP) 14.2 10.0-20.0 [facility] [id number] 11:17:00 Test Item Value Reference Range Interpretation Comments B/C Ratio (test code = B/C Ratio) 7 1 6-25 [facility] [id number] 11:17:00 Test Item Value Reference Range Interpretation Comments Globulin (test code = Globulin) 3.4 2.7-4.2 [facility] [employer] [id number] 11:17:00 Test Item Value Reference Range Interpretation Comments A/G Ratio (test code = A/G Ratio) 0.8 1 0.7-1.6 [facility] [employer] [id number] 11:17:00 Test Item Value Reference Range Interpretation Comments eGFR (test code = eGFR) 6 [facility]2022-06-28 11:17:00 Test Item Value Reference Range Interpretation Comments Magnesium Lvl (test code = Magnesium 1.9 1.8-2.4 Lvl) [facility]2022-06-28 11:17:00 Test Item Value Reference Range Interpretation Comments LDH (test code = LDH) 297 98-192 [facility]2022-06-28 11:17:00 Test Item Value Reference Range Interpretation Comments Procalcitonin Lvl (test 0.63 See_Comment [Au tomated message] code = Procalcitonin Lvl) e system which generated this result transmitted ref erence range: <=0.10. The reference range was not used to interpr et this result as normal/abnormal . [id number] 11:17:00 Test Item Value Reference Range Interpretation Comments D-Dimer (test code = D-Dimer) 5.33 [place] 115822-06-28 11:17:00 Test Item Value Reference Range Interpretation Comments Hep Bs Ag (test code Negative *NA*(11/25/21 = Hep Bs Ag) 6:17 AM) [id number] 11:17:00 Test Item Value Reference Range Interpretation Comments C-REACTIVE PROTEIN (test code = 134.0 C-REACTIVE PROTEIN) [place] 115822-06-28 11:17:00 Test Item Value Reference Range Interpretation [...] Lvl (test code = Ferritin Lvl) 1423 36-365 [facility]2022-06-28 11:17:00 Test Item Value Reference Range Interpretation Comments Glucose Lvl (test code = Glucose Lvl) 205 70-99 [facility]2022-06-28 11:17:00 Test Item Value Reference Range Interpretation Comments BUN (test code = BUN) 60 7-22 [place] 074992-06-28 11:17:00 Test Item Value Reference Range Interpretation Comments Creatinine Lvl (test code = Creatinine 8.46 0.50-1.40 Lvl) [place] 074992-06-28 11:17:00 Test Item Value Reference Range Interpretation Comments Sodium Lvl (test code = Sodium Lvl) 131 135-145 [place] 074992-06-28 11:17:00 Test Item Value Reference Range Interpretation Comments Potassium Lvl (test code = Potassium 5.2 3.5-5.1 Lvl) [place] 074992-06-28 11:17:00 Test Item Value Reference Range Interpretation Comments Chloride Lvl (test code = Chloride Lvl) 93 95-109 [place] 074992-06-28 11:17:00 Test Item Value Reference Range Interpretation Comments CO2 (test code = CO2) 29 24-32 [place] 074992-06-28 11:17:00 Test Item Value Reference Range Interpretation Comments Calcium Lvl (test code = Calcium Lvl) 8.7 8.5-10.5 [place] 074992-06-28 11:17:00 Test Item Value Reference Range Interpretation Comments Total Protein (test code = Total 6.0 6.4-8.4 Protein) [place] 074992-06-28 11:17:00 Test Item Value Reference Range Interpretation Comments Albumin Lvl (test code = Albumin Lvl) 2.6 3.5-5.0 [place] 074992-06-28 11:17:00 Test Item Value Reference Range Interpretation Comments ALT (test code = ALT) 43 See_Comment [Auto mated message] The system which ge nerated this result transmit swathi reference range : <=65. The reference range was not used to interpr et this result as deny l/abnormal. [place] 074992-06-28 11:17:00 Test Item Value Reference Range Interpretation Comments AST (test code = AST) 35 See_Comment [Auto mated message] The system which ge nerated this result transmit swathi reference range : <=37. The reference range was not used to interpr et this result as deny l/abnormal. [address]06-28 11:17:00 Test Item Value Reference Range Interpretation Comments Alk Phos (test code = Alk Phos) 385 39-136 [facility]2022-06-28 11:17:00 Test Item Value Reference Range Interpretation Comments Bili Total (test code = Bili Total) 1.2 0.2-1.3 [facility]2022-06-28 11:17:00 Test Item Value Reference Range Interpretation Comments AGAP (test code = AGAP) 14.2 10.0-20.0 [facility]2022-06-28 11:17:00 Test Item Value Reference Range Interpretation Comments B/C Ratio (test code = B/C Ratio) 7 1 6-25 [facility]2022-06-28 11:17:00 Test Item Value Reference Range Interpretation Comments Globulin (test code = Globulin) 3.4 2.7-4.2 [facility]2022-06-28 11:17:00 Test Item Value Reference Range Interpretation Comments A/G Ratio (test code = A/G Ratio) 0.8 1 0.7-1.6 [facility]2022-06-28 11:17:00 Test Item Value Reference Range Interpretation Comments eGFR (test code = eGFR) 6 [facility]2022-06-28 11:17:00 Test Item Value Reference Range Interpretation Comments Magnesium Lvl (test code = Magnesium 1.9 1.8-2.4 Lvl) [facility]2022-06-28 11:17:00 Test Item Value Reference Range Interpretation Comments LDH (test code = LDH) 297 98-192 [facility]2022-06-28 11:17:00 Test Item Value Reference Range Interpretation Comments Vitamin B12 Lvl (test code = Vitamin 1508 B12 Lvl) [facility]2022-06-28 11:17:00 Test Item Value Reference Range Interpretation Comments Folate Lvl (test code = Folate Lvl) 22.3 [facility]2022-06-28 11:17:00 Test Item Value Reference Range Interpretation Comments Ferritin Lvl (test code = Ferritin Lvl) 1427 53-796 [facility]2022-06-28 11:17:00 Test Item Value Reference Range Interpretation Comments Procalcitonin Lvl (test 0.63 See_Comment [Au tomated message] code = Procalcitonin Lvl) Th e system which generated this result transmitted ref erence range: <=0.10. The reference range was not used to interpr et this result as normal/abnormal . [facility] [id number] 11:17:00 Test Item Value Reference Range Interpretation Comments Glucose Lvl (test code = Glucose Lvl) 205 70-99 [facility] [id number] 11:17:00 Test Item Value Reference Range Interpretation Comments BUN (test code = BUN) 60 7-22 [facility] [id number] 11:17:00 Test Item Value Reference Range Interpretation Comments Creatinine Lvl (test code = Creatinine 8.46 0.50-1.40 Lvl) [facility] [id number] 11:17:00 Test Item Value Reference Range Interpretation Comments Sodium Lvl (test code = Sodium Lvl) 131 135-145 [facility] [id number] 11:17:00 Test Item Value Reference Range Interpretation Comments Potassium Lvl (test code = Potassium 5.2 3.5-5.1 Lvl) [facility] [id number] 11:17:00 Test Item Value Reference Range Interpretation Comments Chloride Lvl (test code = Chloride Lvl) 93 95-109 [facility] [id number] 11:17:00 Test Item Value Reference Range Interpretation Comments CO2 (test code = CO2) 29 24-32 [facility] [id number] 11:17:00 Test Item Value Reference Range Interpretation Comments Calcium Lvl (test code = Calcium Lvl) 8.7 8.5-10.5 [facility] [id number] 11:17:00 Test Item Value Reference Range Interpretation Comments Total Protein (test code = Total 6.0 6.4-8.4 Protein) [facility] [id number] 11:17:00 Test Item Value Reference Range Interpretation Comments Albumin Lvl (test code = Albumin Lvl) 2.6 3.5-5.0 [id number] 11:17:00 Test Item Value Reference Range Interpretation Comments D-Dimer (test code = D-Dimer) 5.33 [facility] [id number] 11:17:00 Test Item Value Reference Range Interpretation Comments ALT (test code = ALT) 43 See_Comment [Auto mated message] The system which ge nerated this result transmit swathi reference range : <=65. The reference range was not used to interpr et this result as deny l/abnormal. [facility] [id number] 11:17:00 Test Item Value Reference Range Interpretation Comments AST (test code = AST) 35 See_Comment [Auto mated message] The system which ge nerated this result transmit swathi reference range : <=37. The reference range was not used to interpr et this result as deny l/abnormal. [facility] [id number] 11:17:00 Test Item Value Reference Range Interpretation Comments Alk Phos (test code = Alk Phos) 385 39-136 [facility] [id number] 11:17:00 Test Item Value Reference Range Interpretation Comments Bili Total (test code = Bili Total) 1.2 0.2-1.3 [facility] [id number] 11:17:00 Test Item Value Reference Range Interpretation Comments AGAP (test code = AGAP) 14.2 10.0-20.0 [facility] [employer] [id number] 11:17:00 Test Item Value Reference Range Interpretation Comments B/C Ratio (test code = B/C Ratio) 7 1 6-25 [facility] [id number] 11:17:00 Test Item Value Reference Range Interpretation Comments Globulin (test code = Globulin) 3.4 2.7-4.2 [facility] [employer] [id number] 11:17:00 Test Item Value Reference Range Interpretation Comments A/G Ratio (test code = A/G Ratio) 0.8 1 0.7-1.6 [facility] [employer] [id number] 11:17:00 Test Item Value Reference Range Interpretation Comments eGFR (test code = eGFR) 6 [facility] [id number] 11:17:00 Test Item Value Reference Range Interpretation Comments Magnesium Lvl (test code = Magnesium 1.9 1.8-2.4 Lvl) [facility] Hos[id number] 11:17:00 Test Item Value Reference Range Interpretation Comments Hep Bs Ag (test code Negative *NA*(11/25/21 = Hep Bs Ag) 6:17 AM) [facility] [id number] 11:17:00 Test Item Value Reference Range Interpretation Comments LDH (test code = LDH) 297 98-192 [facility] [id number] 11:17:00 Test Item Value Reference Range Interpretation Comments Procalcitonin Lvl (test 0.63 See_Comment [Au tomated message] code = Procalcitonin Lvl) Th e system which generated this result transmitted ref erence range: <=0.10. The reference range was not used to interpr et this result as normal/abnormal . [facility] HospitalLoxalnoEUBEPQMTWL6943-28-03 11:17:00 Test Item Value Reference Range Interpretation Comments D-Dimer (test code = D-Dimer) 5.33 [facility] [id number] 11:17:00 Test Item Value Reference Range Interpretation Comments Hep Bs Ag (test code Negative *NA*(11/25/21 = Hep Bs Ag) 6:17 AM) [facility] [id number] 11:17:00 Test Item Value Reference Range Interpretation Comments C-REACTIVE PROTEIN (test code = 134.0 C-REACTIVE PROTEIN) [facility] H[id number] 11:17:00 Test Item Value Reference Range Interpretation Comments Interleukin 6 (test code = Interleukin 25.99 6) [facility] H[id number] 11:17:00 Test Item Value Reference Range Interpretation Comments C-REACTIVE PROTEIN (test code = 134.0 C-REACTIVE PROTEIN) [facility] Hos[id number] 11:17:00 Test Item Value Reference Range Interpretation [...] Ferritin Lvl (test code = Ferritin Lvl) 5865 99-348 [place] 074992-06-28 11:17:00 Test Item Value Reference Range Interpretation Comments Glucose Lvl (test code = Glucose Lvl) 205 70-99 [place] 074992-06-28 11:17:00 Test Item Value Reference Range Interpretation Comments BUN (test code = BUN) 60 7-22 [place] 074992-06-28 11:17:00 Test Item Value Reference Range Interpretation Comments Creatinine Lvl (test code = Creatinine 8.46 0.50-1.40 Lvl) [place] 074992-06-28 11:17:00 Test Item Value Reference Range Interpretation Comments Sodium Lvl (test code = Sodium Lvl) 131 135-145 [place] 074992-06-28 11:17:00 Test Item Value Reference Range Interpretation Comments Potassium Lvl (test code = Potassium 5.2 3.5-5.1 Lvl) [place] 074992-06-28 11:17:00 Test Item Value Reference Range Interpretation Comments Chloride Lvl (test code = Chloride Lvl) 93 95-109 [facility]2022-06-28 11:17:00 Test Item Value Reference Range Interpretation Comments CO2 (test code = CO2) 29 24-32 [place] 074992-06-28 11:17:00 Test Item Value Reference Range Interpretation Comments Calcium Lvl (test code = Calcium Lvl) 8.7 8.5-10.5 [place] 074992-06-28 11:17:00 Test Item Value Reference Range Interpretation Comments Total Protein (test code = Total 6.0 6.4-8.4 Protein) [place] 074992-06-28 11:17:00 Test Item Value Reference Range Interpretation Comments Albumin Lvl (test code = Albumin Lvl) 2.6 3.5-5.0 [place] 074992-06-28 11:17:00 Test Item Value Reference Range Interpretation Comments ALT (test code = ALT) 43 See_Comment [Auto mated message] The system which ge nerated this result transmit swathi reference range : <=65. The reference range was not used to interpr et this result as deny l/abnormal. [place] 074992-06-28 11:17:00 Test Item Value Reference Range Interpretation Comments AST (test code = AST) 35 See_Comment [Auto mated message] The system which ge nerated this result transmit swathi reference range : <=37. The reference range was not used to interpr et this result as deny l/abnormal. [facility]2022-06-28 11:17:00 Test Item Value Reference Range Interpretation Comments Alk Phos (test code = Alk Phos) 385 39-136 [place] 074992-06-28 11:17:00 Test Item Value Reference Range Interpretation Comments Bili Total (test code = Bili Total) 1.2 0.2-1.3 [place] 074992-06-28 11:17:00 Test Item Value Reference Range Interpretation Comments AGAP (test code = AGAP) 14.2 10.0-20.0 [place] 074992-06-28 11:17:00 Test Item Value Reference Range Interpretation Comments B/C Ratio (test code = B/C Ratio) 7 1 6-25 [place] 074992-06-28 11:17:00 Test Item Value Reference Range Interpretation Comments Globulin (test code = Globulin) 3.4 2.7-4.2 [place] 074992-06-28 11:17:00 Test Item Value Reference Range Interpretation Comments A/G Ratio (test code = A/G Ratio) 0.8 1 0.7-1.6 [place] 074992-06-28 11:17:00 Test Item Value Reference Range Interpretation Comments eGFR (test code = eGFR) 6 [place] 074992-06-28 11:17:00 Test Item Value Reference Range Interpretation Comments Magnesium Lvl (test code = Magnesium 1.9 1.8-2.4 Lvl) [place] 074992-06-28 11:17:00 Test Item Value Reference Range Interpretation Comments LDH (test code = LDH) 297 98-192 [facility]2022-06-28 11:17:00 Test Item Value Reference Range Interpretation Comments Procalcitonin Lvl (test 0.63 See_Comment [Au tomated message] code = Procalcitonin Lvl) Th e system which generated this result transmitted ref erence range: <=0.10. The reference range was not used to interpr et this result as normal/abnormal . [place] 152042-06-28 11:17:00 Test Item Value Reference Range Interpretation Comments D-Dimer (test code = D-Dimer) 5.33 [place] 115822-06-28 11:17:00 Test Item Value Reference Range Interpretation Comments Hep Bs Ag (test code Negative *NA*(11/25/21 = Hep Bs Ag) 6:17 AM) [place] 115822-06-28 11:17:00 Test Item Value Reference Range Interpretation Comments C-REACTIVE PROTEIN (test code = 134.0 C-REACTIVE PROTEIN) [place] 115822-06-28 11:17:00 Test Item Value Reference Range Interpretation [...] (test code = Ferritin Lvl) 1423 22-275 [facility]2022-06-28 11:17:00 Test Item Value Reference Range Interpretation Comments Glucose Lvl (test code = Glucose Lvl) 205 70-99 [facility]2022-06-28 11:17:00 Test Item Value Reference Range Interpretation Comments BUN (test code = BUN) 60 7-22 [place] 074992-06-28 11:17:00 Test Item Value Reference Range Interpretation Comments Creatinine Lvl (test code = Creatinine 8.46 0.50-1.40 Lvl) [place] 074992-06-28 11:17:00 Test Item Value Reference Range Interpretation Comments Sodium Lvl (test code = Sodium Lvl) 131 135-145 [place] 074992-06-28 11:17:00 Test Item Value Reference Range Interpretation Comments Potassium Lvl (test code = Potassium 5.2 3.5-5.1 Lvl) [place] 074992-06-28 11:17:00 Test Item Value Reference Range Interpretation Comments Chloride Lvl (test code = Chloride Lvl) 93 95-109 [facility]2022-06-28 11:17:00 Test Item Value Reference Range Interpretation Comments CO2 (test code = CO2) 29 24-32 [place] 074992-06-28 11:17:00 Test Item Value Reference Range Interpretation Comments Calcium Lvl (test code = Calcium Lvl) 8.7 8.5-10.5 [place] 074992-06-28 11:17:00 Test Item Value Reference Range Interpretation Comments Total Protein (test code = Total 6.0 6.4-8.4 Protein) [place] 074992-06-28 11:17:00 Test Item Value Reference Range Interpretation Comments Albumin Lvl (test code = Albumin Lvl) 2.6 3.5-5.0 [facility]2022-06-28 11:17:00 Test Item Value Reference Range Interpretation Comments ALT (test code = ALT) 43 See_Comment [Auto mated message] The system which ge nerated this result transmit swathi reference range : <=65. The reference range was not used to interpr et this result as deny l/abnormal. [facility]2022-06-28 11:17:00 Test Item Value Reference Range Interpretation Comments AST (test code = AST) 35 See_Comment [Auto mated message] The system which ge nerated this result transmit swathi reference range : <=37. The reference range was not used to interpr et this result as deny l/abnormal. [facility]2022-06-28 11:17:00 Test Item Value Reference Range Interpretation Comments Alk Phos (test code = Alk Phos) 385 39-136 [facility]2022-06-28 11:17:00 Test Item Value Reference Range Interpretation Comments Bili Total (test code = Bili Total) 1.2 0.2-1.3 [place] 074992-06-28 11:17:00 Test Item Value Reference Range Interpretation Comments AGAP (test code = AGAP) 14.2 10.0-20.0 [place] 074992-06-28 11:17:00 Test Item Value Reference Range Interpretation Comments B/C Ratio (test code = B/C Ratio) 7 1 6-25 [place] 074992-06-28 11:17:00 Test Item Value Reference Range Interpretation Comments Globulin (test code = Globulin) 3.4 2.7-4.2 [facility] [employer] [id number] 11:17:00 Test Item Value Reference Range Interpretation Comments A/G Ratio (test code = A/G Ratio) 0.8 1 0.7-1.6 [facility] [id number] 11:17:00 Test Item Value Reference Range Interpretation Comments eGFR (test code = eGFR) 6 [facility] [id number] 11:17:00 Test Item Value Reference Range Interpretation Comments Magnesium Lvl (test code = Magnesium 1.9 1.8-2.4 Lvl) [facility] [id number] 11:17:00 Test Item Value Reference Range Interpretation Comments LDH (test code = LDH) 297 98-192 [facility] [id number] 11:17:00 Test Item Value Reference Range Interpretation Comments Procalcitonin Lvl (test 0.63 See_Comment [Au tomated message] code = Procalcitonin Lvl) e system which generated this result transmitted ref erence range: <=0.10. The reference range was not used to interpr et this result as normal/abnormal . [facility] HospitalGpmbddcUGWFRQKJHV1421-97-30 11:17:00 Test Item Value Reference Range Interpretation Comments D-Dimer (test code = D-Dimer) 5.33 [facility] HospitalApqbmaaIYAPHKHEWH6956-96-24 11:17:00 Test Item Value Reference Range Interpretation Comments Hep Bs Ag (test code Negative *NA*(11/25/21 = Hep Bs Ag) 6:17 AM) [facility] Hos[id number] 11:17:00 Test Item Value Reference Range Interpretation Comments C-REACTIVE PROTEIN (test code = 134.0 C-REACTIVE PROTEIN) [facility] HospitalVaiuzehASAQHDVNJR6311-65-46 11:17:00 Test Item Value Reference Range Interpretation Comments Interleukin 6 (test code = Interleukin 25.99 6) [facility] [id number] 05:52:00 Test Item Value Reference Range Interpretation Comments RBC product (test code Product available = RBC product) 4(11/25/21 12:52 AM) [facility] [employer] [id number] 05:52:00 Test Item Value Reference Range Interpretation Comments RBC product (test code Product available = RBC product) 4(11/25/21 12:52 AM) [facility] [id number] 05:52:00 Test Item Value Reference Range Interpretation Comments RBC product (test code Product available = RBC product) 4(11/25/21 12:52 AM) [facility] [id number] 05:52:00 Test Item Value Reference Range Interpretation Comments RBC product (test code Product available = RBC product) 4(11/25/21 12:52 AM) [facility] [id number] 05:52:00 Test Item Value Reference Range Interpretation Comments RBC product (test code Product available = RBC product) 4(11/25/21 12:52 AM) [facility] [id number] 05:52:00 Test Item Value Reference Range Interpretation Comments RBC product (test code Product available = RBC product) 4(11/25/21 12:52 AM) [facility] [id number] 05:52:00 Test Item Value Reference Range Interpretation Comments RBC product (test code Product available = RBC product) 4(11/25/21 12:52 AM) [facility] [id number] 05:52:00 Test Item Value Reference Range Interpretation Comments RBC product (test code Product available = RBC product) 4(11/25/21 12:52 AM) [facility] [id number] 05:52:00 Test Item Value Reference Range Interpretation Comments RBC product (test code Product available = RBC product) 4(11/25/21 12:52 AM) [facility] [id number] 05:52:00 Test Item Value Reference Range Interpretation Comments RBC product (test code Product available = RBC product) 4(11/25/21 12:52 AM) [id number] 05:43:00 Test Item Value Reference Range Interpretation Comments Coronavirus (COVID-19) Detected MANUEL (test code = 8*ABN*(11/25/21 12:43 Coronavirus (COVID-19) AM) MANUEL) [facility] HospitalJvetehtANDRCMMENV5348-04-56 05:43:00 Test Item Value Reference Range Interpretation Comments Coronavirus (COVID-19) Detected MANUEL (test code = 8*ABN*(11/25/21 12:43 Coronavirus (COVID-19) AM) MANUEL) [place] [address]-06-28 05:43:00 Test Item Value Reference Range Interpretation Comments Coronavirus (COVID-19) Detected MANUEL (test code = 8*ABN*(11/25/21 12:43 Coronavirus (COVID-19) AM) MANUEL) [place] [address]-06-28 05:43:00 Test Item Value Reference Range Interpretation Comments Coronavirus (COVID-19) Detected MANUEL (test code = 8*ABN*(11/25/21 12:43 Coronavirus (COVID-19) AM) MANUEL) [place] [address]-06-28 05:43:00 Test Item Value Reference Range Interpretation Comments Coronavirus (COVID-19) Detected MANUEL (test code = 8*ABN*(11/25/21 12:43 Coronavirus (COVID-19) AM) MANUEL) [place] [address]-06-28 05:43:00 Test Item Value Reference Range Interpretation Comments Coronavirus (COVID-19) Detected MANUEL (test code = 8*ABN*(11/25/21 12:43 Coronavirus (COVID-19) AM) MANUEL) [place] [address]-06-28 05:43:00 Test Item Value Reference Range Interpretation Comments Coronavirus (COVID-19) Detected MANUEL (test code = 8*ABN*(11/25/21 12:43 Coronavirus (COVID-19) AM) MANUEL) [place] [address]-06-28 05:43:00 Test Item Value Reference Range Interpretation Comments Coronavirus (COVID-19) Detected MANUEL (test code = 8*ABN*(11/25/21 12:43 Coronavirus (COVID-19) AM) MANUEL) [place] [address]-06-28 05:43:00 Test Item Value Reference Range Interpretation Comments Coronavirus (COVID-19) Detected MANUEL (test code = 8*ABN*(11/25/21 12:43 Coronavirus (COVID-19) AM) MANUEL) [place] [address]-06-28 05:43:00 Test Item Value Reference Range Interpretation Comments Coronavirus (COVID-19) Detected MANUEL (test code = 8*ABN*(11/25/21 12:43 [facility] (COVID-19) AM[id number] 05:23[facility] Test Item Value Reference Range Interpretation Comments Occult Bld Stl (test Negative (11/25/21 12:23 code = Occult Bld Stl) AM) [facility] [id number] 05:23:00 Test Item Value Reference Range Interpretation Comments Occult Bld Stl (test Negative (11/25/21 12:23 code = Occult Bld Stl) AM) [facility] [id number] 05:23:00 Test Item Value Reference Range Interpretation Comments Occult Bld Stl (test Negative (11/25/21 12:23 code = Occult Bld Stl) AM) [facility] [id number] 05:23:00 Test Item Value Reference Range Interpretation Comments Occult Bld Stl (test Negative (11/25/21 12:23 code = Occult Bld Stl) AM) [facility] [id number] 05:23:00 Test Item Value Reference Range Interpretation Comments Occult Bld Stl (test Negative (11/25/21 12:23 code = Occult Bld Stl) AM) [facility] [id number] 05:23:00 Test Item Value Reference Range Interpretation Comments Occult Bld Stl (test Negative (11/25/21 12:23 code = Occult Bld Stl) AM) [facility] [id number] 05:23:00 Test Item Value Reference Range Interpretation Comments Occult Bld Stl (test Negative (11/25/21 12:23 code = Occult Bld Stl) AM) [facility] [id number] 05:23:00 Test Item Value Reference Range Interpretation Comments Occult Bld Stl (test Negative (11/25/21 12:23 code = Occult Bld Stl) AM) [facility] [id number] 05:23:00 Test Item Value Reference Range Interpretation Comments Occult Bld Stl (test Negative (11/25/21 12:23 code = Occult Bld Stl) AM) [facility] [id number] 05:23:00 Test Item Value Reference Range Interpretation Comments Occult Bld Stl (test Negative (11/25/21 12:23 code = Occult Bld Stl) AM) [facility] [employer] [id number] 04:12:00 Test Item Value Reference Range Interpretation Comments ABO/Rh (test code = ABO/Rh) AB POS [facility] [employer] [id number] 04:12:00 Test Item Value Reference Range Interpretation Comments Antibody Scrn (test Negative (11/24/21 code = Antibody Scrn) 11:12 PM) [facility] 20:20 [employer] [id number] 04:12:00 Test Item Value Reference Range Interpretation Comments Total CK (test code = Total CK) 86 12-191 [facility] 20:20 [employer] [id number] 04:12:00 Test Item Value Reference Range Interpretation Comments HS Troponin I (test code = HS Troponin 316 I) [facility] [employer] [id number] 04:12:00 Test Item Value Reference Range Interpretation Comments Glucose Lvl (test code = Glucose Lvl) 261 70-99 [facility] [employer] [id number] 04:12:00 Test Item Value Reference Range Interpretation Comments BUN (test code = BUN) 60 7-22 [facility] [employer]2022-06-28 04:12:00 Test Item Value Reference Range Interpretation Comments Creatinine Lvl (test code = Creatinine 8.49 0.50-1.40 Lvl) [facility] [employer]2022-06-28 04:12:00 Test Item Value Reference Range Interpretation Comments Sodium Lvl (test code = Sodium Lvl) 133 135-145 [facility] [employer]2022-06-28 04:12:00 Test Item Value Reference Range Interpretation Comments Potassium Lvl (test code = Potassium 4.9 3.5-5.1 Lvl) [facility] [employer]2022-06-28 04:12:00 Test Item Value Reference Range Interpretation Comments Chloride Lvl (test code = Chloride Lvl) 93 95-109 [facility] [employer]2022-06-28 04:12:00 Test Item Value Reference Range Interpretation Comments CO2 (test code = CO2) 31 24-32 [facility] [employer]2022-06-28 04:12:00 Test Item Value Reference Range Interpretation Comments Calcium Lvl (test code = Calcium Lvl) 9.1 8.5-10.5 [place] 074992-06-28 04:12:00 Test Item Value Reference Range Interpretation Comments Total Protein (test code = Total 6.8 6.4-8.4 Protein) [place] 074992-06-28 04:12:00 Test Item Value Reference Range Interpretation Comments Albumin Lvl (test code = Albumin Lvl) 2.5 3.5-5.0 [place] 074992-06-28 04:12:00 Test Item Value Reference Range Interpretation Comments ALT (test code = ALT) 51 See_Comment [Auto mated message] The system which ge nerated this result transmit swathi reference range : <=65. The reference range was not used to interpr et this result as deny l/abnormal. [place] 074992-06-28 04:12:00 Test Item Value Reference Range Interpretation Comments AST (test code = AST) 36 See_Comment [Auto mated message] The system which ge nerated this result transmit swathi reference range : <=37. The reference range was not used to interpr et this result as deny l/abnormal. [place] 074992-06-28 04:12:00 Test Item Value Reference Range Interpretation Comments Alk Phos (test code = Alk Phos) 383 39-136 [place] 074992-06-28 04:12:00 Test Item Value Reference Range Interpretation Comments Bili Total (test code = Bili Total) 1.1 0.2-1.3 [place] 074992-06-28 04:12:00 Test Item Value Reference Range Interpretation Comments AGAP (test code = AGAP) 13.9 10.0-20.0 [place] 074992-06-28 04:12:00 Test Item Value Reference Range Interpretation Comments B/C Ratio (test code = B/C Ratio) 7 1 6-25 [place] 074992-06-28 04:12:00 Test Item Value Reference Range Interpretation Comments Globulin (test code = Globulin) 4.3 2.7-4.2 [place] 074992-06-28 04:12:00 Test Item Value Reference Range Interpretation Comments A/G Ratio (test code = A/G Ratio) 0.6 1 0.7-1.6 [facility] [id number] 04:12:00 Test Item Value Reference Range Interpretation Comments eGFR (test code = eGFR) 5 [facility] [id number] 04:12:00 Test Item Value Reference Range Interpretation Comments Procalcitonin Lvl (test 0.69 See_Comment [Au tomated message] code = Procalcitonin Lvl) Th e system which generated this result transmitted ref erence range: <=0.10. The reference range was not used to interpr et this result as normal/abnormal . [facility]FtqjrezSEKTXTOAEB0032-53-63 04:12:00 Test Item Value Reference Range Interpretation Comments WBC (test code = WBC) 4.1 3.7-10.4 [facility] HospitalOqoyisbLWDCHPMWGG8109-46-16 04:12:00 Test Item Value Reference Range Interpretation Comments RBC (test code = RBC) 1.78 4.70-6.10 [facility] HospitalQhltekvRZJJURZHKU4851-00-56 04:12:00 Test Item Value Reference Range Interpretation Comments Hgb (test code = Hgb) 6.5 14.0-18.0 [facility] HospitalQclembzCVNSFGILGN9854-44-00 04:12:00 Test Item Value Reference Range Interpretation Comments Hct (test code = Hct) 19.5 42.0-54.0 [facility] HospitalZvdpdbkYMHLMWCWZU9819-02-36 04:12:00 Test Item Value Reference Range Interpretation Comments MCV (test code = MCV) 110.0 80.0-94.0 [facility] HospitalCyrhmrsHNIAFNRBAT7803-37-61 04:12:00 Test Item Value Reference Range Interpretation Comments MCH (test code = MCH) 36.5 pg 27.0-31.0 [facility] HospitalJxxykqmAOWXWHAYUN9608-79-13 04:12:00 Test Item Value Reference Range Interpretation Comments MCHC (test code = MCHC) 33.2 32.0-36.0 [facility] HospitalJfntgcwGXPIROJJPM7124-72-49 04:12:00 Test Item Value Reference Range Interpretation Comments RDW (test code = RDW) 19.0 11.5-14.5 [facility] HospitalKninsxwMPPYGJHNZP4073-41-82 04:12:00 Test Item Value Reference Range Interpretation Comments Platelet (test code = Platelet) 180 133-450 [facility] HospitalKppacuxLVPVQDFXOB7607-06-43 04:12:00 Test Item Value Reference Range Interpretation Comments MPV (test code = MPV) 8.3 7.4-10.4 [facility] HospitalEdxhsciPYGNIORXOJ7945-27-13 04:12:00 Test Item Value Reference Range Interpretation Comments PTT (test code = PTT) 45.4 s 22.9-35.8 [facility] HospitalEdytvjvFASCRWBKXR0547-58-61 04:12:00 Test Item Value Reference Range Interpretation Comments PT (test code = PT) 19.1 s 12.0-14.7 [place] [address]-06-28 04:12:00 Test Item Value Reference Range Interpretation Comments INR (test code = INR) 1.62 1 0.85-1.17 [place] 152042-06-28 04:12:00 Test Item Value Reference Range Interpretation Comments RBC Morph (test code = See Note (11/24/21 RBC Morph) 11:12 PM) [facility] HospitalHjpmqgdXYCAXNGTKV5663-28-90 04:12:00 Test Item Value Reference Range Interpretation Comments Plt Morph (test code = Normal (11/24/21 11:12 Plt Morph) PM) [facility] HospitalYnwmbqaXUREPWOENB4747-63-47 04:12:00 Test Item Value Reference Range Interpretation Comments Segs (test code = Segs) 72.2 45.0-75.0 [facility] HospitalRxpdlwrLECGNVXUBL2304-38-89 04:12:00 Test Item Value Reference Range Interpretation Comments Lymphocytes (test code = Lymphocytes) 16.2 20.0-40.0 [facility] HospitalVyqknnbLNADUMFXUT6501-14-35 04:12:00 Test Item Value Reference Range Interpretation Comments Monocytes (test code = Monocytes) 8.0 2.0-12.0 [place] 152042-06-28 04:12:00 Test Item Value Reference Range Interpretation Comments Eosinophils (test code = 2.7 See_Comment [A utomated message] The Eosinophils) system which ge nerated this result tra nsmitted reference range : <=4.0. The reference r samantha was not used to int erpret this result as normal/abnormal . [facility] HospitalJgqxbtlNSKGFNXTWH7243-71-95 04:12:00 Test Item Value Reference Range Interpretation Comments Basophils (test code = 0.9 See_Comment [Aut omated message] The Basophils) system which ge nerated this result tra nsmitted reference range : <=1.0. The reference r samantha was not used to int erpret this result as normal/abnormal . [facility] HospitalTaksmrdTBQQBUHILL3478-63-58 04:12:00 Test Item Value Reference Range Interpretation Comments Neutrophils # (test code = Neutrophils 2.9 1.5-8.1 #) [facility] HospitalQxunszqTVIWDTYASN9189-30-65 04:12:00 Test Item Value Reference Range Interpretation Comments Lymphocytes # (test code = Lymphocytes 0.7 1.0-5.5 #) [facility] HospitalPcukntlCVOEPCSILO1336-85-02 04:12:00 Test Item Value Reference Range Interpretation Comments Monocytes # (test code 0.3 See_Comment [Aut omated message] The = Monocytes #) system which generated this result tra nsmitted reference range : <=0.8. The reference r samantha was not used to int erpret this result as normal/abnormal . [facility] HospitalFedmscoHOTCXLDBML7441-17-60 04:12:00 Test Item Value Reference Range Interpretation Comments Eosinophils # (test code 0.1 See_Comment [A utomated message] The = Eosinophils #) system whic h generated this result tra nsmitted reference range : <=0.5. The reference r samantha was not used to int erpret this result as normal/abnormal . [facility] HospitalZkzovztHVHGVJZBGV2707-54-33 04:12:00 Test Item Value Reference Range Interpretation Comments Anisocyte (test code = 1+ *ABN*(11/24/21 Anisocyte) 11:12 PM) [facility] HospitalSexjhelWEDNUXFWRA3693-82-58 04:12:00 Test Item Value Reference Range Interpretation Comments Macrocyte (test code = 1+ *ABN*(11/24/21 Macrocyte) 11:12 PM) [facility] HospitalDvwbruxYPWUQNSWDY5472-96-37 04:12:00 Test Item Value Reference Range Interpretation Comments Microcyte (test code = 1+ *ABN*(11/24/21 Microcyte) 11:12 PM) [facility] [id number] 04:12:00 Test Item Value Reference Range Interpretation Comments ABO/Rh (test code = ABO/Rh) AB POS [facility] [id number] 04:12:00 Test Item Value Reference Range Interpretation Comments Antibody Scrn (test Negative (11/24/21 code = Antibody Scrn) 11:12 PM) [facility] OVIAZGJ0491-78-27 04:12:00 Test Item Value Reference Range Interpretation Comments Total CK (test code = Total CK) 86 12-191 [facility] WNSLPGP7472-36-71 04:12:00 Test Item Value Reference Range Interpretation Comments HS Troponin I (test code = HS Troponin 316 I) [facility]2022-06-28 04:12:00 Test Item Value Reference Range Interpretation Comments Glucose Lvl (test code = Glucose Lvl) 261 70-99 [facility]2022-06-28 04:12:00 Test Item Value Reference Range Interpretation Comments BUN (test code = BUN) 60 7-22 [facility]2022-06-28 04:12:00 Test Item Value Reference Range Interpretation Comments Creatinine Lvl (test code = Creatinine 8.49 0.50-1.40 Lvl) [facility]2022-06-28 04:12:00 Test Item Value Reference Range Interpretation Comments Sodium Lvl (test code = Sodium Lvl) 133 135-145 [facility]2022-06-28 04:12:00 Test Item Value Reference Range Interpretation Comments Potassium Lvl (test code = Potassium 4.9 3.5-5.1 Lvl) [facility]2022-06-28 04:12:00 Test Item Value Reference Range Interpretation Comments Chloride Lvl (test code = Chloride Lvl) 93 95-109 [facility]2022-06-28 04:12:00 Test Item Value Reference Range Interpretation Comments CO2 (test code = CO2) 31 24-32 [facility]2022-06-28 04:12:00 Test Item Value Reference Range Interpretation Comments Calcium Lvl (test code = Calcium Lvl) 9.1 8.5-10.5 [facility]2022-06-28 04:12:00 Test Item Value Reference Range Interpretation Comments Total Protein (test code = Total 6.8 6.4-8.4 Protein) [facility]2022-06-28 04:12:00 Test Item Value Reference Range Interpretation Comments Albumin Lvl (test code = Albumin Lvl) 2.5 3.5-5.0 [facility]2022-06-28 04:12:00 Test Item Value Reference Range Interpretation Comments ALT (test code = ALT) 51 See_Comment [Auto mated message] The system which ge nerated this result transmit swathi reference range : <=65. The reference range was not used to interpr et this result as deny l/abnormal. [facility] [employer] [id number] 04:12:00 Test Item Value Reference Range Interpretation Comments AST (test code = AST) 36 See_Comment [Auto mated message] The system which ge nerated this result transmit swathi reference range : <=37. The reference range was not used to interpr et this result as deny l/abnormal. [facility] [employer] [id number] 04:12:00 Test Item Value Reference Range Interpretation Comments Alk Phos (test code = Alk Phos) 383 39-136 [facility] [employer] [id number] 04:12:00 Test Item Value Reference Range Interpretation Comments Bili Total (test code = Bili Total) 1.1 0.2-1.3 [facility] [id number] 04:12:00 Test Item Value Reference Range Interpretation Comments AGAP (test code = AGAP) 13.9 10.0-20.0 [facility] [employer] [id number] 04:12:00 Test Item Value Reference Range Interpretation Comments B/C Ratio (test code = B/C Ratio) 7 1 6-25 [facility] [id number] 04:12:00 Test Item Value Reference Range Interpretation Comments Globulin (test code = Globulin) 4.3 2.7-4.2 [facility] [employer] [id number] 04:12:00 Test Item Value Reference Range Interpretation Comments A/G Ratio (test code = A/G Ratio) 0.6 1 0.7-1.6 [facility] [employer] [id number] 04:12:00 Test Item Value Reference Range Interpretation Comments eGFR (test code = eGFR) 5 [facility] [id number] 04:12:00 Test Item Value Reference Range Interpretation Comments Procalcitonin Lvl (test 0.69 See_Comment [Au tomated message] code = Procalcitonin Lvl) Th e system which generated this result transmitted ref erence range: <=0.10. The reference range was not used to interpr et this result as normal/abnormal . [facility] HospitalHhvujimFQKPMGVKMI9475-77-62 04:12:00 Test Item Value Reference Range Interpretation Comments WBC (test code = WBC) 4.1 3.7-10.4 [facility] HospitalQdslffrERYYYXZIOU7884-69-97 04:12:00 Test Item Value Reference Range Interpretation Comments RBC (test code = RBC) 1.78 4.70-6.10 [facility] HospitalInkrrupGSPEFSJPQW8559-39-02 04:12:00 Test Item Value Reference Range Interpretation Comments Hgb (test code = Hgb) 6.5 14.0-18.0 [facility] HospitalBtjooimSVEEXVFCVV7676-39-00 04:12:00 Test Item Value Reference Range Interpretation Comments Hct (test code = Hct) 19.5 42.0-54.0 [facility] HospitalCkcsywqKRERVEFGSJ1215-89-93 04:12:00 Test Item Value Reference Range Interpretation Comments MCV (test code = MCV) 110.0 80.0-94.0 [facility] HospitalVzhnycnJNRMWYJTNA5003-40-73 04:12:00 Test Item Value Reference Range Interpretation Comments MCH (test code = MCH) 36.5 pg 27.0-31.0 [facility] HospitalUshqejwMDICJSJVJI3913-59-54 04:12:00 Test Item Value Reference Range Interpretation Comments MCHC (test code = MCHC) 33.2 32.0-36.0 [facility] HospitalNtefxjfFAKSIOMSHT5331-22-90 04:12:00 Test Item Value Reference Range Interpretation Comments RDW (test code = RDW) 19.0 11.5-14.5 [facility] HospitalPguspvcFVJDNJXUJL1232-48-90 04:12:00 Test Item Value Reference Range Interpretation Comments Platelet (test code = Platelet) 180 133-450 [facility] HospitalUvdkaofKGTKMDTEQV6103-22-52 04:12:00 Test Item Value Reference Range Interpretation Comments MPV (test code = MPV) 8.3 7.4-10.4 [facility] HospitalRocwtxwJGJTQQNNJX6160-60-44 04:12:00 Test Item Value Reference Range Interpretation Comments PTT (test code = PTT) 45.4 s 22.9-35.8 [facility] HospitalLsvxgjlAVWPKTFANT3707-02-63 04:12:00 Test Item Value Reference Range Interpretation Comments PT (test code = PT) 19.1 s 12.0-14.7 [place] 152042-06-28 04:12:00 Test Item Value Reference Range Interpretation Comments INR (test code = INR) 1.62 1 0.85-1.17 [facility] HospitalBjncnwpRDDANIBUYW8274-22-90 04:12:00 Test Item Value Reference Range Interpretation Comments RBC Morph (test code = See Note (11/24/21 RBC Morph) 11:12 PM) [facility] HospitalXstzhutPRQDESFNXW6710-71-62 04:12:00 Test Item Value Reference Range Interpretation Comments Plt Morph (test code = Normal (11/24/21 11:12 Plt Morph) PM) [facility] HospitalPlzynmwUFMPEUMKQI5943-30-43 04:12:00 Test Item Value Reference Range Interpretation Comments Segs (test code = Segs) 72.2 45.0-75.0 [facility] HospitalSjivakhSBTOUDNUSE2290-71-30 04:12:00 Test Item Value Reference Range Interpretation Comments Lymphocytes (test code = Lymphocytes) 16.2 20.0-40.0 [facility] HospitalNeluqhtACWMXCADCN7244-87-51 04:12:00 Test Item Value Reference Range Interpretation Comments Monocytes (test code = Monocytes) 8.0 2.0-12.0 [facility] HospitalBjfacahSXBVNNXFQM3655-72-25 04:12:00 Test Item Value Reference Range Interpretation Comments Eosinophils (test code = 2.7 See_Comment [A utomated message] The Eosinophils) system which ge nerated this result tra nsmitted reference range : <=4.0. The reference r samantha was not used to int erpret this result as normal/abnormal . [facility] HospitalUejthfyPYBSIFZCSH8981-47-97 04:12:00 Test Item Value Reference Range Interpretation Comments Basophils (test code = 0.9 See_Comment [Aut omated message] The Basophils) system which ge nerated this result tra nsmitted reference range : <=1.0. The reference r samantha was not used to int erpret this result as normal/abnormal . [facility] HospitalSawvmcoFZEMKOVWES1126-78-45 04:12:00 Test Item Value Reference Range Interpretation Comments Neutrophils # (test code = Neutrophils 2.9 1.5-8.1 #) [facility] HospitalKstavxrYWYULYDLNK7036-32-31 04:12:00 Test Item Value Reference Range Interpretation Comments Lymphocytes # (test code = Lymphocytes 0.7 1.0-5.5 #) [place] 152042-06-28 04:12:00 Test Item Value Reference Range Interpretation Comments Monocytes # (test code 0.3 See_Comment [Aut omated message] The = Monocytes #) system which generated this result tra nsmitted reference range : <=0.8. The reference r samantha was not used to int erpret this result as normal/abnormal . [facility] HospitalHrybayaKJVNFAIQHB7434-71-09 04:12:00 Test Item Value Reference Range Interpretation Comments Eosinophils # (test code 0.1 See_Comment [A utomated message] The = Eosinophils #) system whic h generated this result tra nsmitted reference range : <=0.5. The reference r samantha was not used to int erpret this result as normal/abnormal . [facility] HospitalNehwozfWYEFPWXNNH4100-32-80 04:12:00 Test Item Value Reference Range Interpretation Comments Anisocyte (test code = 1+ *ABN*(11/24/21 Anisocyte) 11:12 PM) [facility] HospitalFpvyvlnJGNTWLGSLT7827-89-42 04:12:00 Test Item Value Reference Range Interpretation Comments Macrocyte (test code = 1+ *ABN*(11/24/21 Macrocyte) 11:12 PM) [facility] HospitalBhwrqzgIYFKKIINEK0996-51-34 04:12:00 Test Item Value Reference Range Interpretation Comments Microcyte (test code = 1+ *ABN*(11/24/21 Microcyte) 11:12 PM) [facility] [id number] 04:12:00 Test Item Value Reference Range Interpretation Comments ABO/Rh (test code = ABO/Rh) AB POS [facility] [employer] [id number] 04:12:00 Test Item Value Reference Range Interpretation Comments Antibody Scrn (test Negative (11/24/21 code = Antibody Scrn) 11:12 PM) [facility] [id number] 04:12:00 Test Item Value Reference Range Interpretation Comments Total CK (test code = Total CK) 86 12-191 [facility] [id number] 04:12:00 Test Item Value Reference Range Interpretation Comments HS Troponin I (test code = HS Troponin 316 I) [facility] [employer]2022-06-28 04:12:00 Test Item Value Reference Range Interpretation Comments Glucose Lvl (test code = Glucose Lvl) 261 70-99 [place] 074992-06-28 04:12:00 Test Item Value Reference Range Interpretation Comments BUN (test code = BUN) 60 7-22 [place] 074992-06-28 04:12:00 Test Item Value Reference Range Interpretation Comments Creatinine Lvl (test code = Creatinine 8.49 0.50-1.40 Lvl) [place] 074992-06-28 04:12:00 Test Item Value Reference Range Interpretation Comments Sodium Lvl (test code = Sodium Lvl) 133 135-145 [place] 074992-06-28 04:12:00 Test Item Value Reference Range Interpretation Comments Potassium Lvl (test code = Potassium 4.9 3.5-5.1 Lvl) [place] 074992-06-28 04:12:00 Test Item Value Reference Range Interpretation Comments Chloride Lvl (test code = Chloride Lvl) 93 95-109 [place] 074992-06-28 04:12:00 Test Item Value Reference Range Interpretation Comments CO2 (test code = CO2) 31 24-32 [place] 074992-06-28 04:12:00 Test Item Value Reference Range Interpretation Comments Calcium Lvl (test code = Calcium Lvl) 9.1 8.5-10.5 [place] 074992-06-28 04:12:00 Test Item Value Reference Range Interpretation Comments Total Protein (test code = Total 6.8 6.4-8.4 Protein) [place] 074992-06-28 04:12:00 Test Item Value Reference Range Interpretation Comments Albumin Lvl (test code = Albumin Lvl) 2.5 3.5-5.0 [place] 074992-06-28 04:12:00 Test Item Value Reference Range Interpretation Comments ALT (test code = ALT) 51 See_Comment [Auto mated message] The system which ge nerated this result transmit swathi reference range : <=65. The reference range was not used to interpr et this result as deny l/abnormal. [place] 074992-06-28 04:12:00 Test Item Value Reference Range Interpretation Comments AST (test code = AST) 36 See_Comment [Auto mated message] The system which ge nerated this result transmit swathi reference range : <=37. The reference range was not used to interpr et this result as deny l/abnormal. [facility] [id number] 04:12:00 Test Item Value Reference Range Interpretation Comments Alk Phos (test code = Alk Phos) 383 39-136 [facility] [id number] 04:12:00 Test Item Value Reference Range Interpretation Comments Bili Total (test code = Bili Total) 1.1 0.2-1.3 [place] 074992-06-28 04:12:00 Test Item Value Reference Range Interpretation Comments AGAP (test code = AGAP) 13.9 10.0-20.0 [facility] [id number] 04:12:00 Test Item Value Reference Range Interpretation Comments B/C Ratio (test code = B/C Ratio) 7 1 6-25 [place] 074992-06-28 04:12:00 Test Item Value Reference Range Interpretation Comments Globulin (test code = Globulin) 4.3 2.7-4.2 [place] 074992-06-28 04:12:00 Test Item Value Reference Range Interpretation Comments A/G Ratio (test code = A/G Ratio) 0.6 1 0.7-1.6 [facility] [id number] 04:12:00 Test Item Value Reference Range Interpretation Comments eGFR (test code = eGFR) 5 [facility] [id number] 04:12:00 Test Item Value Reference Range Interpretation Comments Procalcitonin Lvl (test 0.69 See_Comment [Au tomated message] code = Procalcitonin Lvl) Th e system which generated this result transmitted ref erence range: <=0.10. The reference range was not used to interpr et this result as normal/abnormal . [facility] HospitalDlsqahvYMGZVLUCQT0524-94-73 04:12:00 Test Item Value Reference Range Interpretation Comments WBC (test code = WBC) 4.1 3.7-10.4 [place] 152042-06-28 04:12:00 Test Item Value Reference Range Interpretation Comments RBC (test code = RBC) 1.78 4.70-6.10 [place] 152042-06-28 04:12:00 Test Item Value Reference Range Interpretation Comments Hgb (test code = Hgb) 6.5 14.0-18.0 [facility]XfaajjgFCYEQGTBJO1105-63-91 04:12:00 Test Item Value Reference Range Interpretation Comments Hct (test code = Hct) 19.5 42.0-54.0 [facility] HospitalGqoysauKPLGYIKJCO0500-98-92 04:12:00 Test Item Value Reference Range Interpretation Comments MCV (test code = MCV) 110.0 80.0-94.0 [facility] HospitalXesjnlpZCQQKHESJT3885-91-15 04:12:00 Test Item Value Reference Range Interpretation Comments MCH (test code = MCH) 36.5 pg 27.0-31.0 [facility] HospitalOhhssmcXIRQSPCNBS0638-20-54 04:12:00 Test Item Value Reference Range Interpretation Comments MCHC (test code = MCHC) 33.2 32.0-36.0 [facility] HospitalUhnkrrkTUKFEQGUYS5261-49-64 04:12:00 Test Item Value Reference Range Interpretation Comments RDW (test code = RDW) 19.0 11.5-14.5 [facility] HospitalNtpyujcEJNIFYUDML5076-23-12 04:12:00 Test Item Value Reference Range Interpretation Comments Platelet (test code = Platelet) 180 133-450 [facility] HospitalBneqrzgICZUJZZETU5942-33-70 04:12:00 Test Item Value Reference Range Interpretation Comments MPV (test code = MPV) 8.3 7.4-10.4 [facility] HospitalJinzsqpZQSKBIFYLG3532-51-80 04:12:00 Test Item Value Reference Range Interpretation Comments PTT (test code = PTT) 45.4 s 22.9-35.8 [facility] HospitalNqwgvdlBGPZBOFYWM8547-85-24 04:12:00 Test Item Value Reference Range Interpretation Comments PT (test code = PT) 19.1 s 12.0-14.7 [facility] HospitalOyfwaypNERIPAFHKN6426-61-95 04:12:00 Test Item Value Reference Range Interpretation Comments INR (test code = INR) 1.62 1 0.85-1.17 [facility] HospitalIsamezjMKXTWZRBGM7848-87-45 04:12:00 Test Item Value Reference Range Interpretation Comments RBC Morph (test code = See Note (11/24/21 RBC Morph) 11:12 PM) [facility] HospitalUewdwdgJSYSPERCXK0918-00-53 04:12:00 Test Item Value Reference Range Interpretation Comments Plt Morph (test code = Normal (11/24/21 11:12 Plt Morph) PM) [place] 152042-06-28 04:12:00 Test Item Value Reference Range Interpretation Comments Segs (test code = Segs) 72.2 45.0-75.0 [place] 152042-06-28 04:12:00 Test Item Value Reference Range Interpretation Comments Lymphocytes (test code = Lymphocytes) 16.2 20.0-40.0 [place] [address]-06-28 04:12:00 Test Item Value Reference Range Interpretation Comments Monocytes (test code = Monocytes) 8.0 2.0-12.0 [place] [address]-06-28 04:12:00 Test Item Value Reference Range Interpretation Comments Eosinophils (test code = 2.7 See_Comment [A utomated message] The Eosinophils) system which ge nerated this result tra nsmitted reference range : <=4.0. The reference r samantha was not used to int erpret this result as normal/abnormal . [place] [address]-06-28 04:12:00 Test Item Value Reference Range Interpretation Comments Basophils (test code = 0.9 See_Comment [Aut omated message] The Basophils) system which ge nerated this result tra nsmitted reference range : <=1.0. The reference r samantha was not used to int erpret this result as normal/abnormal . [place] [address]-06-28 04:12:00 Test Item Value Reference Range Interpretation Comments Neutrophils # (test code = Neutrophils 2.9 1.5-8.1 #) [place] 152042-06-28 04:12:00 Test Item Value Reference Range Interpretation Comments Lymphocytes # (test code = Lymphocytes 0.7 1.0-5.5 #) [place] 152042-06-28 04:12:00 Test Item Value Reference Range Interpretation Comments Monocytes # (test code 0.3 See_Comment [Aut omated message] The = Monocytes #) system which generated this result tra nsmitted reference range : <=0.8. The reference r samantha was not used to int erpret this result as normal/abnormal . [place] 152042-06-28 04:12:00 Test Item Value Reference Range Interpretation Comments Eosinophils # (test code 0.1 See_Comment [A utomated message] The = Eosinophils #) system whic h generated this result tra nsmitted reference range : <=0.5. The reference r samantha was not used to int erpret this result as normal/abnormal . [facility] WanaqzoJAKDQUWBCE3292-53-27 04:12:00 Test Item Value Reference Range Interpretation Comments Anisocyte (test code = 1+ *ABN*(11/24/21 Anisocyte) 11:12 PM) [facility] HospitalSwblxrrWXLOPBQBHC3590-09-75 04:12:00 Test Item Value Reference Range Interpretation Comments Macrocyte (test code = 1+ *ABN*(11/24/21 Macrocyte) 11:12 PM) [facility] HospitalZvejfpvBRHFMXGPJS1670-13-60 04:12:00 Test Item Value Reference Range Interpretation Comments Microcyte (test code = 1+ *ABN*(11/24/21 Microcyte) 11:12 PM) [facility] [employer] [id number] 04:12:00 Test Item Value Reference Range Interpretation Comments ABO/Rh (test code = ABO/Rh) AB POS [facility] [employer] [id number] 04:12:00 Test Item Value Reference Range Interpretation Comments Antibody Scrn (test Negative (11/24/21 code = Antibody Scrn) 11:12 PM) [facility] [employer] [id number] 04:12:00 Test Item Value Reference Range Interpretation Comments Total CK (test code = Total CK) 86 12-191 [facility] [employer] [id number] 04:12:00 Test Item Value Reference Range Interpretation Comments HS Troponin I (test code = HS Troponin 316 I) [facility] [employer]2022-06-28 04:12:00 Test Item Value Reference Range Interpretation Comments Glucose Lvl (test code = Glucose Lvl) 261 70-99 [facility] [employer]2022-06-28 04:12:00 Test Item Value Reference Range Interpretation Comments BUN (test code = BUN) 60 7-22 [employer]2022-06-28 04:12:00 Test Item Value Reference Range Interpretation Comments Creatinine Lvl (test code = Creatinine 8.49 0.50-1.40 Lvl) [facility] [employer]2022-06-28 04:12:00 Test Item Value Reference Range Interpretation Comments Sodium Lvl (test code = Sodium Lvl) 133 135-145 [facility] [employer]2022-06-28 04:12:00 Test Item Value Reference Range Interpretation Comments Potassium Lvl (test code = Potassium 4.9 3.5-5.1 Lvl) [place] 074992-06-28 04:12:00 Test Item Value Reference Range Interpretation Comments Chloride Lvl (test code = Chloride Lvl) 93 95-109 [place] 074992-06-28 04:12:00 Test Item Value Reference Range Interpretation Comments CO2 (test code = CO2) 31 24-32 [place] 074992-06-28 04:12:00 Test Item Value Reference Range Interpretation Comments Calcium Lvl (test code = Calcium Lvl) 9.1 8.5-10.5 [place] 074992-06-28 04:12:00 Test Item Value Reference Range Interpretation Comments Total Protein (test code = Total 6.8 6.4-8.4 Protein) [place] 074992-06-28 04:12:00 Test Item Value Reference Range Interpretation Comments Albumin Lvl (test code = Albumin Lvl) 2.5 3.5-5.0 [place] 074992-06-28 04:12:00 Test Item Value Reference Range Interpretation Comments ALT (test code = ALT) 51 See_Comment [Auto mated message] The system which ge nerated this result transmit swathi reference range : <=65. The reference range was not used to interpr et this result as deny l/abnormal. [place] 074992-06-28 04:12:00 Test Item Value Reference Range Interpretation Comments AST (test code = AST) 36 See_Comment [Auto mated message] The system which ge nerated this result transmit swathi reference range : <=37. The reference range was not used to interpr et this result as deny l/abnormal. [place] 074992-06-28 04:12:00 Test Item Value Reference Range Interpretation Comments Alk Phos (test code = Alk Phos) 383 39-136 [place] 074992-06-28 04:12:00 Test Item Value Reference Range Interpretation Comments Bili Total (test code = Bili Total) 1.1 0.2-1.3 [place] 074992-06-28 04:12:00 Test Item Value Reference Range Interpretation Comments AGAP (test code = AGAP) 13.9 10.0-20.0 [facility]2022-06-28 04:12:00 Test Item Value Reference Range Interpretation Comments B/C Ratio (test code = B/C Ratio) 7 1 6-25 [facility]2022-06-28 04:12:00 Test Item Value Reference Range Interpretation Comments Globulin (test code = Globulin) 4.3 2.7-4.2 [place] 074992-06-28 04:12:00 Test Item Value Reference Range Interpretation Comments A/G Ratio (test code = A/G Ratio) 0.6 1 0.7-1.6 [facility]2022-06-28 04:12:00 Test Item Value Reference Range Interpretation Comments eGFR (test code = eGFR) 5 [facility]2022-06-28 04:12:00 Test Item Value Reference Range Interpretation Comments Procalcitonin Lvl (test 0.69 See_Comment [Au tomated message] code = Procalcitonin Lvl) Th e system which generated this result transmitted ref erence range: <=0.10. The reference range was not used to interpr et this result as normal/abnormal . [facility] HospitalShrxkzeTKNQMZSBXV7986-68-71 04:12:00 Test Item Value Reference Range Interpretation Comments WBC (test code = WBC) 4.1 3.7-10.4 [facility] HospitalXdsfgjxMIARONXVHY2142-82-90 04:12:00 Test Item Value Reference Range Interpretation Comments RBC (test code = RBC) 1.78 4.70-6.10 [facility] HospitalIfjghccLNTBWPJMSK4737-16-96 04:12:00 Test Item Value Reference Range Interpretation Comments Hgb (test code = Hgb) 6.5 14.0-18.0 [facility] HospitalEgtfdckJKXKEPTYTJ7193-50-63 04:12:00 Test Item Value Reference Range Interpretation Comments Hct (test code = Hct) 19.5 42.0-54.0 [place] 152042-06-28 04:12:00 Test Item Value Reference Range Interpretation Comments MCV (test code = MCV) 110.0 80.0-94.0 [place] 152042-06-28 04:12:00 Test Item Value Reference Range Interpretation Comments MCH (test code = MCH) 36.5 pg 27.0-31.0 [facility] HospitalYxtvfoyPNEMYRFPAR7727-85-26 04:12:00 Test Item Value Reference Range Interpretation Comments MCHC (test code = MCHC) 33.2 32.0-36.0 [facility] HospitalUykadhdJILXEQHAVK7307-78-30 04:12:00 Test Item Value Reference Range Interpretation Comments RDW (test code = RDW) 19.0 11.5-14.5 [facility] HospitalGdruzoiDFWRAOFQHJ2479-57-90 04:12:00 Test Item Value Reference Range Interpretation Comments Platelet (test code = Platelet) 180 133-450 [facility] HospitalBajfzurDMLAIILIAT6381-26-38 04:12:00 Test Item Value Reference Range Interpretation Comments MPV (test code = MPV) 8.3 7.4-10.4 [place] 152042-06-28 04:12:00 Test Item Value Reference Range Interpretation Comments PTT (test code = PTT) 45.4 s 22.9-35.8 [facility] HospitalDxnddjcEDFYNDLZBV0329-98-33 04:12:00 Test Item Value Reference Range Interpretation Comments PT (test code = PT) 19.1 s 12.0-14.7 [facility] HospitalKotmpepMTFVGDFNNT1254-90-52 04:12:00 Test Item Value Reference Range Interpretation Comments INR (test code = INR) 1.62 1 0.85-1.17 [facility] HospitalFcodzhtKQDZQLCBHJ5285-24-92 04:12:00 Test Item Value Reference Range Interpretation Comments RBC Morph (test code = See Note (11/24/21 RBC Morph) 11:12 PM) [facility] HospitalTtqvklyRYNFHRBMNV7008-46-36 04:12:00 Test Item Value Reference Range Interpretation Comments Plt Morph (test code = Normal (11/24/21 11:12 Plt Morph) PM) [facility] HospitalXmbxyxlVKMPAZDPUV1496-11-42 04:12:00 Test Item Value Reference Range Interpretation Comments Segs (test code = Segs) 72.2 45.0-75.0 [place] 152042-06-28 04:12:00 Test Item Value Reference Range Interpretation Comments Lymphocytes (test code = Lymphocytes) 16.2 20.0-40.0 [facility] HospitalIkzhfjxRHRBDGOTZH9779-49-26 04:12:00 Test Item Value Reference Range Interpretation Comments Monocytes (test code = Monocytes) 8.0 2.0-12.0 [place] 152042-06-28 04:12:00 Test Item Value Reference Range Interpretation Comments Eosinophils (test code = 2.7 See_Comment [A utomated message] The Eosinophils) system which ge nerated this result tra nsmitted reference range : <=4.0. The reference r samantha was not used to int erpret this result as normal/abnormal . [place] 152042-06-28 04:12:00 Test Item Value Reference Range Interpretation Comments Basophils (test code = 0.9 See_Comment [Aut omated message] The Basophils) system which ge nerated this result tra nsmitted reference range : <=1.0. The reference r samantha was not used to int erpret this result as normal/abnormal . [place] 152042-06-28 04:12:00 Test Item Value Reference Range Interpretation Comments Neutrophils # (test code = Neutrophils 2.9 1.5-8.1 #) [place] [address]-06-28 04:12:00 Test Item Value Reference Range Interpretation Comments Lymphocytes # (test code = Lymphocytes 0.7 1.0-5.5 #) [facility] HospitalWfcijgtULKYPQTYFM8284-49-71 04:12:00 Test Item Value Reference Range Interpretation Comments Monocytes # (test code 0.3 See_Comment [Aut omated message] The = Monocytes #) system which generated this result tra nsmitted reference range : <=0.8. The reference r samantha was not used to int erpret this result as normal/abnormal . [place] [address]-06-28 04:12:00 Test Item Value Reference Range Interpretation Comments Eosinophils # (test code 0.1 See_Comment [A utomated message] The = Eosinophils #) system whic h generated this result tra nsmitted reference range : <=0.5. The reference r samantha was not used to int erpret this result as normal/abnormal . [facility] HospitalMdwzhglHOAENMJNAC0665-44-75 04:12:00 Test Item Value Reference Range Interpretation Comments Anisocyte (test code = 1+ *ABN*(11/24/21 Anisocyte) 11:12 PM) [place] 152042-06-28 04:12:00 Test Item Value Reference Range Interpretation Comments Macrocyte (test code = 1+ *ABN*(11/24/21 Macrocyte) 11:12 PM) [facility] HospitalEtqzdcmHIRNGPEOVU6490-16-68 04:12:00 Test Item Value Reference Range Interpretation Comments Microcyte (test code = 1+ *ABN*(11/24/21 Microcyte) 11:12 PM) [facility] [id number] 04:12:00 Test Item Value Reference Range Interpretation Comments ABO/Rh (test code = ABO/Rh) AB POS [facility] [id number] 04:12:00 Test Item Value Reference Range Interpretation Comments Antibody Scrn (test Negative (11/24/21 code = Antibody Scrn) 11:12 PM) [facility] HospitalCheck [facility] Here [id number] 04:12:00 Test Item Value Reference Range Interpretation Comments Total CK (test code = Total CK) 86 12-191 [facility] [id number] 04:12:00 Test Item Value Reference Range Interpretation Comments HS Troponin I (test code = HS Troponin 316 I) [facility] [employer]2022-06-28 04:12:00 Test Item Value Reference Range Interpretation Comments Glucose Lvl (test code = Glucose Lvl) 261 70-99 [facility] [employer] [id number] 04:12:00 Test Item Value Reference Range Interpretation Comments BUN (test code = BUN) 60 7-22 [facility] [employer]2022-06-28 04:12:00 Test Item Value Reference Range Interpretation Comments Creatinine Lvl (test code = Creatinine 8.49 0.50-1.40 Lvl) [facility] [employer]2022-06-28 04:12:00 Test Item Value Reference Range Interpretation Comments Sodium Lvl (test code = Sodium Lvl) 133 135-145 [facility] [employer] [id number] 04:12:00 Test Item Value Reference Range Interpretation Comments Potassium Lvl (test code = Potassium 4.9 3.5-5.1 Lvl) [facility] [employer]2022-06-28 04:12:00 Test Item Value Reference Range Interpretation Comments Chloride Lvl (test code = Chloride Lvl) 93 95-109 [facility] [employer] [id number] 04:12:00 Test Item Value Reference Range Interpretation Comments CO2 (test code = CO2) 31 24-32 [facility] [employer] [id number] 04:12:00 Test Item Value Reference Range Interpretation Comments Calcium Lvl (test code = Calcium Lvl) 9.1 8.5-10.5 [place] 074992-06-28 04:12:00 Test Item Value Reference Range Interpretation Comments Total Protein (test code = Total 6.8 6.4-8.4 Protein) [place] 074992-06-28 04:12:00 Test Item Value Reference Range Interpretation Comments Albumin Lvl (test code = Albumin Lvl) 2.5 3.5-5.0 [place] 074992-06-28 04:12:00 Test Item Value Reference Range Interpretation Comments ALT (test code = ALT) 51 See_Comment [Auto mated message] The system which ge nerated this result transmit swathi reference range : <=65. The reference range was not used to interpr et this result as deny l/abnormal. [place] 074992-06-28 04:12:00 Test Item Value Reference Range Interpretation Comments AST (test code = AST) 36 See_Comment [Auto mated message] The system which ge nerated this result transmit swathi reference range : <=37. The reference range was not used to interpr et this result as deny l/abnormal. [place] 074992-06-28 04:12:00 Test Item Value Reference Range Interpretation Comments Alk Phos (test code = Alk Phos) 383 39-136 [place] 074992-06-28 04:12:00 Test Item Value Reference Range Interpretation Comments Bili Total (test code = Bili Total) 1.1 0.2-1.3 [place] 074992-06-28 04:12:00 Test Item Value Reference Range Interpretation Comments AGAP (test code = AGAP) 13.9 10.0-20.0 [facility] [id number] 04:12:00 Test Item Value Reference Range Interpretation Comments B/C Ratio (test code = B/C Ratio) 7 1 6-25 [place] 074992-06-28 04:12:00 Test Item Value Reference Range Interpretation Comments Globulin (test code = Globulin) 4.3 2.7-4.2 [facility] [id number] 04:12:00 Test Item Value Reference Range Interpretation Comments A/G Ratio (test code = A/G Ratio) 0.6 1 0.7-1.6 [facility] [id number] 04:12:00 Test Item Value Reference Range Interpretation Comments eGFR (test code = eGFR) 5 [facility] [id number] 04:12:00 Test Item Value Reference Range Interpretation Comments Procalcitonin Lvl (test 0.69 See_Comment [Au tomated message] code = Procalcitonin Lvl) Th e system which generated this result transmitted ref erence range: <=0.10. The reference range was not used to interpr et this result as normal/abnormal . [facility] HospitalMlceyzuYHCJWPEKFE0430-66-31 04:12:00 Test Item Value Reference Range Interpretation Comments WBC (test code = WBC) 4.1 3.7-10.4 [facility] HospitalTliwrrzYTBKRWIHCP8346-52-35 04:12:00 Test Item Value Reference Range Interpretation Comments RBC (test code = RBC) 1.78 4.70-6.10 [facility] HospitalHpgenonZQUUKQAWZH5002-84-66 04:12:00 Test Item Value Reference Range Interpretation Comments Hgb (test code = Hgb) 6.5 14.0-18.0 [facility] HospitalXlbdaplNLKRTAENTK6318-89-14 04:12:00 Test Item Value Reference Range Interpretation Comments Hct (test code = Hct) 19.5 42.0-54.0 [facility] HospitalNtncrnvRTJRBQKSKB6432-18-65 04:12:00 Test Item Value Reference Range Interpretation Comments MCV (test code = MCV) 110.0 80.0-94.0 [facility] HospitalUtcsrytEQWVTZDMKI3063-33-50 04:12:00 Test Item Value Reference Range Interpretation Comments MCH (test code = MCH) 36.5 pg 27.0-31.0 [facility] HospitalZabzekpKDHEUETVHY1193-38-18 04:12:00 Test Item Value Reference Range Interpretation Comments MCHC (test code = MCHC) 33.2 32.0-36.0 [facility] HospitalFegeehdETUSVMLETV8972-64-84 04:12:00 Test Item Value Reference Range Interpretation Comments RDW (test code = RDW) 19.0 11.5-14.5 [facility] HospitalVxecgudPPQFDGDEQR6601-99-67 04:12:00 Test Item Value Reference Range Interpretation Comments Platelet (test code = Platelet) 180 133-450 [facility] HospitalNanqyjrQESDJJDQMS2373-00-52 04:12:00 Test Item Value Reference Range Interpretation Comments MPV (test code = MPV) 8.3 7.4-10.4 [place] [address]-06-28 04:12:00 Test Item Value Reference Range Interpretation Comments PTT (test code = PTT) 45.4 s 22.9-35.8 [place] 152042-06-28 04:12:00 Test Item Value Reference Range Interpretation Comments PT (test code = PT) 19.1 s 12.0-14.7 [place] [address]-06-28 04:12:00 Test Item Value Reference Range Interpretation Comments INR (test code = INR) 1.62 1 0.85-1.17 [place] [address]-06-28 04:12:00 Test Item Value Reference Range Interpretation Comments RBC Morph (test code = See Note (11/24/21 RBC Morph) 11:12 PM) [place] 152042-06-28 04:12:00 Test Item Value Reference Range Interpretation Comments Plt Morph (test code = Normal (11/24/21 11:12 Plt Morph) PM) [place] 152042-06-28 04:12:00 Test Item Value Reference Range Interpretation Comments Segs (test code = Segs) 72.2 45.0-75.0 [place] 152042-06-28 04:12:00 Test Item Value Reference Range Interpretation Comments Lymphocytes (test code = Lymphocytes) 16.2 20.0-40.0 [place] 152042-06-28 04:12:00 Test Item Value Reference Range Interpretation Comments Monocytes (test code = Monocytes) 8.0 2.0-12.0 [place] [address]-06-28 04:12:00 Test Item Value Reference Range Interpretation Comments Eosinophils (test code = 2.7 See_Comment [A utomated message] The Eosinophils) system which ge nerated this result tra nsmitted reference range : <=4.0. The reference r samantha was not used to int erpret this result as normal/abnormal . [place] 152042-06-28 04:12:00 Test Item Value Reference Range Interpretation Comments Basophils (test code = 0.9 See_Comment [Aut omated message] The Basophils) system which ge nerated this result tra nsmitted reference range : <=1.0. The reference r samantha was not used to int erpret this result as normal/abnormal . [facility] HospitalDzndpzwHJRMZLEXPJ9764-69-75 04:12:00 Test Item Value Reference Range Interpretation Comments Neutrophils # (test code = Neutrophils 2.9 1.5-8.1 #) [facility] HospitalYbbxzmdPCZFTTNLWF5922-43-76 04:12:00 Test Item Value Reference Range Interpretation Comments Lymphocytes # (test code = Lymphocytes 0.7 1.0-5.5 #) [facility] HospitalKeyybceCTLPUPXDIH0650-60-33 04:12:00 Test Item Value Reference Range Interpretation Comments Monocytes # (test code 0.3 See_Comment [Aut omated message] The = Monocytes #) system which generated this result tra nsmitted reference range : <=0.8. The reference r samantha was not used to int erpret this result as normal/abnormal . [facility] HospitalSowykueBJSWBIUUTZ5919-49-60 04:12:00 Test Item Value Reference Range Interpretation Comments Eosinophils # (test code 0.1 See_Comment [A utomated message] The = Eosinophils #) system whic h generated this result tra nsmitted reference range : <=0.5. The reference r samantha was not used to int erpret this result as normal/abnormal . [facility] HospitalGyvyhpfJDOXVABKHT6214-02-52 04:12:00 Test Item Value Reference Range Interpretation Comments Anisocyte (test code = 1+ *ABN*(11/24/21 Anisocyte) 11:12 PM) [facility] HospitalVyvwwzeFQLKMKSGOP8606-55-73 04:12:00 Test Item Value Reference Range Interpretation Comments Macrocyte (test code = 1+ *ABN*(11/24/21 Macrocyte) 11:12 PM) [facility] HospitalKmqfitbZNUDZTDGTL1631-15-94 04:12:00 Test Item Value Reference Range Interpretation Comments Microcyte (test code = 1+ *ABN*(11/24/21 Microcyte) 11:12 PM) [facility] [place] [id number] 04:12:00 Test Item Value Reference Range Interpretation Comments ABO/Rh (test code = ABO/Rh) AB POS [facility] [place] [id number] 04:12:00 Test Item Value Reference Range Interpretation Comments Antibody Scrn (test Negative (11/24/21 code = Antibody Scrn) 11:12 PM) [facility] [id number] 04:12:00 Test Item Value Reference Range Interpretation Comments Total CK (test code = Total CK) 86 12-191 [facility] [id number] 04:12:00 Test Item Value Reference Range Interpretation Comments HS Troponin I (test code = HS Troponin 316 I) [facility]2022-06-28 04:12:00 Test Item Value Reference Range Interpretation Comments Glucose Lvl (test code = Glucose Lvl) 261 70-99 [facility]2022-06-28 04:12:00 Test Item Value Reference Range Interpretation Comments BUN (test code = BUN) 60 7-22 [facility]2022-06-28 04:12:00 Test Item Value Reference Range Interpretation Comments Creatinine Lvl (test code = Creatinine 8.49 0.50-1.40 Lvl) [facility]2022-06-28 04:12:00 Test Item Value Reference Range Interpretation Comments Sodium Lvl (test code = Sodium Lvl) 133 135-145 [facility]2022-06-28 04:12:00 Test Item Value Reference Range Interpretation Comments Potassium Lvl (test code = Potassium 4.9 3.5-5.1 Lvl) [facility]2022-06-28 04:12:00 Test Item Value Reference Range Interpretation Comments Chloride Lvl (test code = Chloride Lvl) 93 95-109 [facility]2022-06-28 04:12:00 Test Item Value Reference Range Interpretation Comments CO2 (test code = CO2) 31 24-32 [facility]2022-06-28 04:12:00 Test Item Value Reference Range Interpretation Comments Calcium Lvl (test code = Calcium Lvl) 9.1 8.5-10.5 [place] 074992-06-28 04:12:00 Test Item Value Reference Range Interpretation Comments Total Protein (test code = Total 6.8 6.4-8.4 Protein) [facility]2022-06-28 04:12:00 Test Item Value Reference Range Interpretation Comments Albumin Lvl (test code = Albumin Lvl) 2.5 3.5-5.0 [facility]2022-06-28 04:12:00 Test Item Value Reference Range Interpretation Comments ALT (test code = ALT) 51 See_Comment [Auto mated message] The system which ge nerated this result transmit swathi reference range : <=65. The reference range was not used to interpr et this result as deny l/abnormal. [facility] [employer] [id number] 04:12:00 Test Item Value Reference Range Interpretation Comments AST (test code = AST) 36 See_Comment [Auto mated message] The system which ge nerated this result transmit swathi reference range : <=37. The reference range was not used to interpr et this result as deny l/abnormal. [facility] [employer] [id number] 04:12:00 Test Item Value Reference Range Interpretation Comments Alk Phos (test code = Alk Phos) 383 39-136 [facility] [employer] [id number] 04:12:00 Test Item Value Reference Range Interpretation Comments Bili Total (test code = Bili Total) 1.1 0.2-1.3 [facility] [employer] [id number] 04:12:00 Test Item Value Reference Range Interpretation Comments AGAP (test code = AGAP) 13.9 10.0-20.0 [facility] [employer] [id number] 04:12:00 Test Item Value Reference Range Interpretation Comments B/C Ratio (test code = B/C Ratio) 7 1 6-25 [facility] [id number] 04:12:00 Test Item Value Reference Range Interpretation Comments Globulin (test code = Globulin) 4.3 2.7-4.2 [facility] [employer] [id number] 04:12:00 Test Item Value Reference Range Interpretation Comments A/G Ratio (test code = A/G Ratio) 0.6 1 0.7-1.6 [facility] [employer] [id number] 04:12:00 Test Item Value Reference Range Interpretation Comments eGFR (test code = eGFR) 5 [facility] [employer] [id number] 04:12:00 Test Item Value Reference Range Interpretation Comments Procalcitonin Lvl (test 0.69 See_Comment [Au tomated message] code = Procalcitonin Lvl) Th e system which generated this result transmitted ref erence range: <=0.10. The reference range was not used to interpr et this result as normal/abnormal . [facility] HospitalQnpzxgwVKGAGECPST2453-96-96 04:12:00 Test Item Value Reference Range Interpretation Comments WBC (test code = WBC) 4.1 3.7-10.4 [facility] HospitalNmamumjDYRPGSJBZX6412-39-43 04:12:00 Test Item Value Reference Range Interpretation Comments RBC (test code = RBC) 1.78 4.70-6.10 [facility] HospitalMgwkzwiJEHIFTFWOR3822-52-07 04:12:00 Test Item Value Reference Range Interpretation Comments Hgb (test code = Hgb) 6.5 14.0-18.0 [facility] HospitalZtieuscKUNWXZPQGH5218-32-01 04:12:00 Test Item Value Reference Range Interpretation Comments Hct (test code = Hct) 19.5 42.0-54.0 [facility] HospitalNyduhoxJBQRYNDRUN2489-46-91 04:12:00 Test Item Value Reference Range Interpretation Comments MCV (test code = MCV) 110.0 80.0-94.0 [facility] HospitalHwesxpqKXPFOJHIEO0280-16-08 04:12:00 Test Item Value Reference Range Interpretation Comments MCH (test code = MCH) 36.5 pg 27.0-31.0 [facility] HospitalUfhetigDXQSLFAVUQ0491-22-21 04:12:00 Test Item Value Reference Range Interpretation Comments MCHC (test code = MCHC) 33.2 32.0-36.0 [facility] HospitalIgkmcraAEACDPGIVJ7129-33-54 04:12:00 Test Item Value Reference Range Interpretation Comments RDW (test code = RDW) 19.0 11.5-14.5 [facility] HospitalDvbnyuyLRTSFCIFJH7771-46-88 04:12:00 Test Item Value Reference Range Interpretation Comments Platelet (test code = Platelet) 180 133-450 [facility] HospitalRozzuqzLYVJOUGDJZ1453-43-92 04:12:00 Test Item Value Reference Range Interpretation Comments MPV (test code = MPV) 8.3 7.4-10.4 [facility] HospitalGhrefndSVOVJHNGHY2303-51-82 04:12:00 Test Item Value Reference Range Interpretation Comments PTT (test code = PTT) 45.4 s 22.9-35.8 [facility] HospitalMlzctjrWXBZWMYXKF2476-18-67 04:12:00 Test Item Value Reference Range Interpretation Comments PT (test code = PT) 19.1 s 12.0-14.7 [place] 152042-06-28 04:12:00 Test Item Value Reference Range Interpretation Comments INR (test code = INR) 1.62 1 0.85-1.17 [place] 152042-06-28 04:12:00 Test Item Value Reference Range Interpretation Comments RBC Morph (test code = See Note (11/24/21 RBC Morph) 11:12 PM) [place] 152042-06-28 04:12:00 Test Item Value Reference Range Interpretation Comments Plt Morph (test code = Normal (11/24/21 11:12 Plt Morph) PM) [place] 152042-06-28 04:12:00 Test Item Value Reference Range Interpretation Comments Segs (test code = Segs) 72.2 45.0-75.0 [place] 152042-06-28 04:12:00 Test Item Value Reference Range Interpretation Comments Lymphocytes (test code = Lymphocytes) 16.2 20.0-40.0 [place] 152042-06-28 04:12:00 Test Item Value Reference Range Interpretation Comments Monocytes (test code = Monocytes) 8.0 2.0-12.0 [place] 152042-06-28 04:12:00 Test Item Value Reference Range Interpretation Comments Eosinophils (test code = 2.7 See_Comment [A utomated message] The Eosinophils) system which ge nerated this result tra nsmitted reference range : <=4.0. The reference r samantha was not used to int erpret this result as normal/abnormal . [facility] HospitalMnlwwuuZJPRBXSXWS9576-54-18 04:12:00 Test Item Value Reference Range Interpretation Comments Basophils (test code = 0.9 See_Comment [Aut omated message] The Basophils) system which ge nerated this result tra nsmitted reference range : <=1.0. The reference r samantha was not used to int erpret this result as normal/abnormal . [facility] HospitalBslazlrLVGYNUPOYJ5308-59-25 04:12:00 Test Item Value Reference Range Interpretation Comments Neutrophils # (test code = Neutrophils 2.9 1.5-8.1 #) [place] 152042-06-28 04:12:00 Test Item Value Reference Range Interpretation Comments Lymphocytes # (test code = Lymphocytes 0.7 1.0-5.5 #) [place] 152042-06-28 04:12:00 Test Item Value Reference Range Interpretation Comments Monocytes # (test code 0.3 See_Comment [Aut omated message] The = Monocytes #) system which generated this result tra nsmitted reference range : <=0.8. The reference r samantha was not used to int erpret this result as normal/abnormal . [facility] HospitalYjbykqzMBHHYSARXN3574-91-38 04:12:00 Test Item Value Reference Range Interpretation Comments Eosinophils # (test code 0.1 See_Comment [A utomated message] The = Eosinophils #) system whic h generated this result tra nsmitted reference range : <=0.5. The reference r samantha was not used to int erpret this result as normal/abnormal . [facility] HospitalCqjmquvDUHCKNCVIY2496-72-35 04:12:00 Test Item Value Reference Range Interpretation Comments Anisocyte (test code = 1+ *ABN*(11/24/21 Anisocyte) 11:12 PM) [facility] HospitalGeudrdtQTFEISGBQL8418-50-45 04:12:00 Test Item Value Reference Range Interpretation Comments Macrocyte (test code = 1+ *ABN*(11/24/21 Macrocyte) 11:12 PM) [facility] HospitalOcwfedvIZREDEGXZL3211-25-33 04:12:00 Test Item Value Reference Range Interpretation Comments Microcyte (test code = 1+ *ABN*(11/24/21 Microcyte) 11:12 PM) [facility] [id number] 04:12:00 Test Item Value Reference Range Interpretation Comments ABO/Rh (test code = ABO/Rh) AB POS [facility] [id number] 04:12:00 Test Item Value Reference Range Interpretation Comments Antibody Scrn (test Negative (11/24/21 code = Antibody Scrn) 11:12 PM) [facility] HospitalImpact[facility] [id number] 04:12:00 Test Item Value Reference Range Interpretation Comments Total CK (test code = Total CK) 86 12-191 [facility] HospitalActimagine GSYEWFM3756-22-19 04:12:00 Test Item Value Reference Range Interpretation Comments HS Troponin I (test code = HS Troponin 316 I) [facility] [id number] 04:12:00 Test Item Value Reference Range Interpretation Comments Glucose Lvl (test code = Glucose Lvl) 261 70-99 [place] 074992-06-28 04:12:00 Test Item Value Reference Range Interpretation Comments BUN (test code = BUN) 60 7-22 [place] [address]-06-28 04:12:00 Test Item Value Reference Range Interpretation Comments Creatinine Lvl (test code = Creatinine 8.49 0.50-1.40 Lvl) [address]06-28 04:12:00 Test Item Value Reference Range Interpretation Comments Sodium Lvl (test code = Sodium Lvl) 133 135-145 [place] 074992-06-28 04:12:00 Test Item Value Reference Range Interpretation Comments Potassium Lvl (test code = Potassium 4.9 3.5-5.1 Lvl) [address]06-28 04:12:00 Test Item Value Reference Range Interpretation Comments Chloride Lvl (test code = Chloride Lvl) 93 95-109 [address]06-28 04:12:00 Test Item Value Reference Range Interpretation Comments CO2 (test code = CO2) 31 24-32 [place] 074992-06-28 04:12:00 Test Item Value Reference Range Interpretation Comments Calcium Lvl (test code = Calcium Lvl) 9.1 8.5-10.5 [place] [address]-06-28 04:12:00 Test Item Value Reference Range Interpretation Comments Total Protein (test code = Total 6.8 6.4-8.4 Protein) [place] [address]-06-28 04:12:00 Test Item Value Reference Range Interpretation Comments Albumin Lvl (test code = Albumin Lvl) 2.5 3.5-5.0 [place] [address]-06-28 04:12:00 Test Item Value Reference Range Interpretation Comments ALT (test code = ALT) 51 See_Comment [Auto mated message] The system which ge nerated this result transmit swathi reference range : <=65. The reference range was not used to interpr et this result as deny l/abnormal. [place] [address]-06-28 04:12:00 Test Item Value Reference Range Interpretation Comments AST (test code = AST) 36 See_Comment [Auto mated message] The system which ge nerated this result transmit swathi reference range : <=37. The reference range was not used to interpr et this result as deny l/abnormal. [facility] HospitalEquals6 [id number] 04:12:00 Test Item Value Reference Range Interpretation Comments Alk Phos (test code = Alk Phos) 383 39-136 [facility]2022-06-28 04:12:00 Test Item Value Reference Range Interpretation Comments Bili Total (test code = Bili Total) 1.1 0.2-1.3 [place] 074992-06-28 04:12:00 Test Item Value Reference Range Interpretation Comments AGAP (test code = AGAP) 13.9 10.0-20.0 [place] 074992-06-28 04:12:00 Test Item Value Reference Range Interpretation Comments B/C Ratio (test code = B/C Ratio) 7 1 6-25 [place] 074992-06-28 04:12:00 Test Item Value Reference Range Interpretation Comments Globulin (test code = Globulin) 4.3 2.7-4.2 [place] 074992-06-28 04:12:00 Test Item Value Reference Range Interpretation Comments A/G Ratio (test code = A/G Ratio) 0.6 1 0.7-1.6 [place] 074992-06-28 04:12:00 Test Item Value Reference Range Interpretation Comments eGFR (test code = eGFR) 5 [place] 074992-06-28 04:12:00 Test Item Value Reference Range Interpretation Comments Procalcitonin Lvl (test 0.69 See_Comment [Au tomated message] code = Procalcitonin Lvl) e system which generated this result transmitted ref erence range: <=0.10. The reference range was not used to interpr et this result as normal/abnormal . [facility] HospitalUqpfnrzGWSNXEJHVR5745-01-00 04:12:00 Test Item Value Reference Range Interpretation Comments WBC (test code = WBC) 4.1 3.7-10.4 [place] 152042-06-28 04:12:00 Test Item Value Reference Range Interpretation Comments RBC (test code = RBC) 1.78 4.70-6.10 [place] 152042-06-28 04:12:00 Test Item Value Reference Range Interpretation Comments Hgb (test code = Hgb) 6.5 14.0-18.0 [facility] HospitalAtmrrgrODAZJVPOTM4927-67-27 04:12:00 Test Item Value Reference Range Interpretation Comments Hct (test code = Hct) 19.5 42.0-54.0 [facility] HospitalMyjlrqvFTVDKQHNSZ6270-53-13 04:12:00 Test Item Value Reference Range Interpretation Comments MCV (test code = MCV) 110.0 80.0-94.0 [facility] HospitalEbksybcVIDIUHAPLK3329-88-25 04:12:00 Test Item Value Reference Range Interpretation Comments MCH (test code = MCH) 36.5 pg 27.0-31.0 [facility] HospitalBdehsjuAXAXOEBXJP7412-56-65 04:12:00 Test Item Value Reference Range Interpretation Comments MCHC (test code = MCHC) 33.2 32.0-36.0 [facility] HospitalQgnfblxLFEDZEUBPG1407-91-91 04:12:00 Test Item Value Reference Range Interpretation Comments RDW (test code = RDW) 19.0 11.5-14.5 [facility] HospitalOzzigjqCXVPTHTKCS4152-80-34 04:12:00 Test Item Value Reference Range Interpretation Comments Platelet (test code = Platelet) 180 133-450 [facility] HospitalUuwjgmcEYSTIZWQBP8295-66-13 04:12:00 Test Item Value Reference Range Interpretation Comments MPV (test code = MPV) 8.3 7.4-10.4 [facility] HospitalNvtfomzIGSLEUEWIY2656-04-38 04:12:00 Test Item Value Reference Range Interpretation Comments PTT (test code = PTT) 45.4 s 22.9-35.8 [facility] HospitalYtqpcyaXKKSYNJPEU4480-51-90 04:12:00 Test Item Value Reference Range Interpretation Comments PT (test code = PT) 19.1 s 12.0-14.7 [facility] HospitalBxkinocURYOPAPFQU7597-07-64 04:12:00 Test Item Value Reference Range Interpretation Comments INR (test code = INR) 1.62 1 0.85-1.17 [facility] HospitalJnvgkylNICEZIRZMK1466-59-29 04:12:00 Test Item Value Reference Range Interpretation Comments RBC Morph (test code = See Note (11/24/21 RBC Morph) 11:12 PM) [facility] HospitalHkcwezfSHUKFYRZFB5120-26-56 04:12:00 Test Item Value Reference Range Interpretation Comments Plt Morph (test code = Normal (11/24/21 11:12 Plt Morph) PM) [place] 152042-06-28 04:12:00 Test Item Value Reference Range Interpretation Comments Segs (test code = Segs) 72.2 45.0-75.0 [place] [address]-06-28 04:12:00 Test Item Value Reference Range Interpretation Comments Lymphocytes (test code = Lymphocytes) 16.2 20.0-40.0 [place] [address]-06-28 04:12:00 Test Item Value Reference Range Interpretation Comments Monocytes (test code = Monocytes) 8.0 2.0-12.0 [place] [address]-06-28 04:12:00 Test Item Value Reference Range Interpretation Comments Eosinophils (test code = 2.7 See_Comment [A utomated message] The Eosinophils) system which ge nerated this result tra nsmitted reference range : <=4.0. The reference r samantha was not used to int erpret this result as normal/abnormal . [place] [address]-06-28 04:12:00 Test Item Value Reference Range Interpretation Comments Basophils (test code = 0.9 See_Comment [Aut omated message] The Basophils) system which ge nerated this result tra nsmitted reference range : <=1.0. The reference r samantha was not used to int erpret this result as normal/abnormal . [place] 152042-06-28 04:12:00 Test Item Value Reference Range Interpretation Comments Neutrophils # (test code = Neutrophils 2.9 1.5-8.1 #) [place] 152042-06-28 04:12:00 Test Item Value Reference Range Interpretation Comments Lymphocytes # (test code = Lymphocytes 0.7 1.0-5.5 #) [place] [address]-06-28 04:12:00 Test Item Value Reference Range Interpretation Comments Monocytes # (test code 0.3 See_Comment [Aut omated message] The = Monocytes #) system which generated this result tra nsmitted reference range : <=0.8. The reference r samantha was not used to int erpret this result as normal/abnormal . [place] [address]-06-28 04:12:00 Test Item Value Reference Range Interpretation Comments Eosinophils # (test code 0.1 See_Comment [A utomated message] The = Eosinophils #) system whic h generated this result tra nsmitted reference range : <=0.5. The reference r samantha was not used to int erpret this result as normal/abnormal . [facility] NbbsoqwFAYFUVEQVX4504-63-55 04:12:00 Test Item Value Reference Range Interpretation Comments Anisocyte (test code = 1+ *ABN*(11/24/21 Anisocyte) 11:12 PM) [facility] HospitalVjnvenuTLQXLMPPLT8724-99-35 04:12:00 Test Item Value Reference Range Interpretation Comments Macrocyte (test code = 1+ *ABN*(11/24/21 Macrocyte) 11:12 PM) [facility] HospitalQsytbyeZBBRQNKIOI5779-09-72 04:12:00 Test Item Value Reference Range Interpretation Comments Microcyte (test code = 1+ *ABN*(11/24/21 Microcyte) 11:12 PM) [facility] [employer] [id number] 04:12:00 Test Item Value Reference Range Interpretation Comments ABO/Rh (test code = ABO/Rh) AB POS [facility] [employer] [id number] 04:12:00 Test Item Value Reference Range Interpretation Comments Antibody Scrn (test Negative (11/24/21 code = Antibody Scrn) 11:12 PM) [facility] [employer] [id number] 04:12:00 Test Item Value Reference Range Interpretation Comments Total CK (test code = Total CK) 86 12-191 [facility] [employer]2022-06-28 04:12:00 Test Item Value Reference Range Interpretation Comments HS Troponin I (test code = HS Troponin 316 I) [facility] [employer]2022-06-28 04:12:00 Test Item Value Reference Range Interpretation Comments Glucose Lvl (test code = Glucose Lvl) 261 70-99 [facility] [employer]2022-06-28 04:12:00 Test Item Value Reference Range Interpretation Comments BUN (test code = BUN) 60 7-22 [employer]2022-06-28 04:12:00 Test Item Value Reference Range Interpretation Comments Creatinine Lvl (test code = Creatinine 8.49 0.50-1.40 Lvl) [facility] [employer]2022-06-28 04:12:00 Test Item Value Reference Range Interpretation Comments Sodium Lvl (test code = Sodium Lvl) 133 135-145 [facility] [employer]2022-06-28 04:12:00 Test Item Value Reference Range Interpretation Comments Potassium Lvl (test code = Potassium 4.9 3.5-5.1 Lvl) [place] [address]-06-28 04:12:00 Test Item Value Reference Range Interpretation Comments Chloride Lvl (test code = Chloride Lvl) 93 95-109 [place] 074992-06-28 04:12:00 Test Item Value Reference Range Interpretation Comments CO2 (test code = CO2) 31 24-32 [place] 074992-06-28 04:12:00 Test Item Value Reference Range Interpretation Comments Calcium Lvl (test code = Calcium Lvl) 9.1 8.5-10.5 [place] [address]-06-28 04:12:00 Test Item Value Reference Range Interpretation Comments Total Protein (test code = Total 6.8 6.4-8.4 Protein) [place] 074992-06-28 04:12:00 Test Item Value Reference Range Interpretation Comments Albumin Lvl (test code = Albumin Lvl) 2.5 3.5-5.0 [place] 074992-06-28 04:12:00 Test Item Value Reference Range Interpretation Comments ALT (test code = ALT) 51 See_Comment [Auto mated message] The system which ge nerated this result transmit swathi reference range : <=65. The reference range was not used to interpr et this result as deny l/abnormal. [place] [address]-06-28 04:12:00 Test Item Value Reference Range Interpretation Comments AST (test code = AST) 36 See_Comment [Auto mated message] The system which ge nerated this result transmit swathi reference range : <=37. The reference range was not used to interpr et this result as deny l/abnormal. [place] 074992-06-28 04:12:00 Test Item Value Reference Range Interpretation Comments Alk Phos (test code = Alk Phos) 383 39-136 [place] 074992-06-28 04:12:00 Test Item Value Reference Range Interpretation Comments Bili Total (test code = Bili Total) 1.1 0.2-1.3 [place] 074992-06-28 04:12:00 Test Item Value Reference Range Interpretation Comments AGAP (test code = AGAP) 13.9 10.0-20.0 [place] 074992-06-28 04:12:00 Test Item Value Reference Range Interpretation Comments B/C Ratio (test code = B/C Ratio) 7 1 6-25 [place] 074992-06-28 04:12:00 Test Item Value Reference Range Interpretation Comments Globulin (test code = Globulin) 4.3 2.7-4.2 [place] 074992-06-28 04:12:00 Test Item Value Reference Range Interpretation Comments A/G Ratio (test code = A/G Ratio) 0.6 1 0.7-1.6 [place] 074992-06-28 04:12:00 Test Item Value Reference Range Interpretation Comments eGFR (test code = eGFR) 5 [place] 074992-06-28 04:12:00 Test Item Value Reference Range Interpretation Comments Procalcitonin Lvl (test 0.69 See_Comment [Au tomated message] code = Procalcitonin Lvl) e system which generated this result transmitted ref erence range: <=0.10. The reference range was not used to interpr et this result as normal/abnormal . [facility] HospitalSvrlszfFSFEADVWRA3038-92-41 04:12:00 Test Item Value Reference Range Interpretation Comments WBC (test code = WBC) 4.1 3.7-10.4 [place] 152042-06-28 04:12:00 Test Item Value Reference Range Interpretation Comments RBC (test code = RBC) 1.78 4.70-6.10 [place] 152042-06-28 04:12:00 Test Item Value Reference Range Interpretation Comments Hgb (test code = Hgb) 6.5 14.0-18.0 [place] [address]-06-28 04:12:00 Test Item Value Reference Range Interpretation Comments Hct (test code = Hct) 19.5 42.0-54.0 [place] [address]-06-28 04:12:00 Test Item Value Reference Range Interpretation Comments MCV (test code = MCV) 110.0 80.0-94.0 [place] [address]-06-28 04:12:00 Test Item Value Reference Range Interpretation Comments MCH (test code = MCH) 36.5 pg 27.0-31.0 [facility] HospitalSuauqqbJCIWUSDMPW6661-09-97 04:12:00 Test Item Value Reference Range Interpretation Comments MCHC (test code = MCHC) 33.2 32.0-36.0 [facility] HospitalXklkyjpSSRMSMGMSN0568-57-58 04:12:00 Test Item Value Reference Range Interpretation Comments RDW (test code = RDW) 19.0 11.5-14.5 [facility] HospitalEilzmduSSRQTUDOXK9718-33-20 04:12:00 Test Item Value Reference Range Interpretation Comments Platelet (test code = Platelet) 180 133-450 [facility] HospitalTbrppudTDBRNQHHXU7673-94-47 04:12:00 Test Item Value Reference Range Interpretation Comments MPV (test code = MPV) 8.3 7.4-10.4 [facility] HospitalCfyprkvVJKVOBXMUL6318-55-33 04:12:00 Test Item Value Reference Range Interpretation Comments PTT (test code = PTT) 45.4 s 22.9-35.8 [facility] HospitalDsapchaCYPDPVTPBH1922-14-43 04:12:00 Test Item Value Reference Range Interpretation Comments PT (test code = PT) 19.1 s 12.0-14.7 [facility] HospitalGbhcjwuDAGHCQPBLB1417-70-84 04:12:00 Test Item Value Reference Range Interpretation Comments INR (test code = INR) 1.62 1 0.85-1.17 [facility] HospitalKkiugfdGIUPKEWHYO4858-45-02 04:12:00 Test Item Value Reference Range Interpretation Comments RBC Morph (test code = See Note (11/24/21 RBC Morph) 11:12 PM) [facility] HospitalNetzrngPDRKCAAOOY0254-32-26 04:12:00 Test Item Value Reference Range Interpretation Comments Plt Morph (test code = Normal (11/24/21 11:12 Plt Morph) PM) [facility] HospitalPcmtpjoVMHUXTNASK0537-55-08 04:12:00 Test Item Value Reference Range Interpretation Comments Segs (test code = Segs) 72.2 45.0-75.0 [facility] HospitalHhnfofjDWIPDLZCFV3348-24-99 04:12:00 Test Item Value Reference Range Interpretation Comments Lymphocytes (test code = Lymphocytes) 16.2 20.0-40.0 [facility] HospitalSqxtnxpYEVLTNRXSQ3186-46-76 04:12:00 Test Item Value Reference Range Interpretation Comments Monocytes (test code = Monocytes) 8.0 2.0-12.0 [place] 152042-06-28 04:12:00 Test Item Value Reference Range Interpretation Comments Eosinophils (test code = 2.7 See_Comment [A utomated message] The Eosinophils) system which ge nerated this result tra nsmitted reference range : <=4.0. The reference r samantha was not used to int erpret this result as normal/abnormal . [place] 152042-06-28 04:12:00 Test Item Value Reference Range Interpretation Comments Basophils (test code = 0.9 See_Comment [Aut omated message] The Basophils) system which ge nerated this result tra nsmitted reference range : <=1.0. The reference r samantha was not used to int erpret this result as normal/abnormal . [place] 152042-06-28 04:12:00 Test Item Value Reference Range Interpretation Comments Neutrophils # (test code = Neutrophils 2.9 1.5-8.1 #) [place] 152042-06-28 04:12:00 Test Item Value Reference Range Interpretation Comments Lymphocytes # (test code = Lymphocytes 0.7 1.0-5.5 #) [place] 152042-06-28 04:12:00 Test Item Value Reference Range Interpretation Comments Monocytes # (test code 0.3 See_Comment [Aut omated message] The = Monocytes #) system which generated this result tra nsmitted reference range : <=0.8. The reference r samantha was not used to int erpret this result as normal/abnormal . [facility] HospitalHzgpupsVWVUIOMYZU2340-30-53 04:12:00 Test Item Value Reference Range Interpretation Comments Eosinophils # (test code 0.1 See_Comment [A utomated message] The = Eosinophils #) system whic h generated this result tra nsmitted reference range : <=0.5. The reference r samantha was not used to int erpret this result as normal/abnormal . [facility] HospitalTtasvgxISUHNAFZXG0559-43-61 04:12:00 Test Item Value Reference Range Interpretation Comments Anisocyte (test code = 1+ *ABN*(11/24/21 Anisocyte) 11:12 PM) [facility] HospitalHitpsorYDFOAIZYNU6697-00-48 04:12:00 Test Item Value Reference Range Interpretation Comments Macrocyte (test code = 1+ *ABN*(11/24/21 Macrocyte) 11:12 PM) [facility] HospitalVrmptseTXMFAEADEZ3841-99-78 04:12:00 Test Item Value Reference Range Interpretation Comments Microcyte (test code = 1+ *ABN*(11/24/21 Microcyte) 11:12 PM) [facility] [id number] 04:12:00 Test Item Value Reference Range Interpretation Comments ABO/Rh (test code = ABO/Rh) AB POS [facility] [id number] 04:12:00 Test Item Value Reference Range Interpretation Comments Antibody Scrn (test Negative (11/24/21 code = Antibody Scrn) 11:12 PM) [facility]Check I[facility] Here [id number] 04:12:00 Test Item Value Reference Range Interpretation Comments Total CK (test code = Total CK) 86 12-191 [facility] LJKJEPW7573-80-07 04:12:00 Test Item Value Reference Range Interpretation Comments HS Troponin I (test code = HS Troponin 316 I) [facility] [place]2022-06-28 04:12:00 Test Item Value Reference Range Interpretation Comments Glucose Lvl (test code = Glucose Lvl) 261 70-99 [facility] [employer] [id number] 04:12:00 Test Item Value Reference Range Interpretation Comments BUN (test code = BUN) 60 7-22 [facility] [place]2022-06-28 04:12:00 Test Item Value Reference Range Interpretation Comments Creatinine Lvl (test code = Creatinine 8.49 0.50-1.40 Lvl) [facility] [place]2022-06-28 04:12:00 Test Item Value Reference Range Interpretation Comments Sodium Lvl (test code = Sodium Lvl) 133 135-145 [facility] [place]2022-06-28 04:12:00 Test Item Value Reference Range Interpretation Comments Potassium Lvl (test code = Potassium 4.9 3.5-5.1 Lvl) [facility] [place]2022-06-28 04:12:00 Test Item Value Reference Range Interpretation Comments Chloride Lvl (test code = Chloride Lvl) 93 95-109 [facility] [place]2022-06-28 04:12:00 Test Item Value Reference Range Interpretation Comments CO2 (test code = CO2) 31 24-32 [facility] [place]2022-06-28 04:12:00 Test Item Value Reference Range Interpretation Comments Calcium Lvl (test code = Calcium Lvl) 9.1 8.5-10.5 [place] 074992-06-28 04:12:00 Test Item Value Reference Range Interpretation Comments Total Protein (test code = Total 6.8 6.4-8.4 Protein) [place] 074992-06-28 04:12:00 Test Item Value Reference Range Interpretation Comments Albumin Lvl (test code = Albumin Lvl) 2.5 3.5-5.0 [place] 074992-06-28 04:12:00 Test Item Value Reference Range Interpretation Comments ALT (test code = ALT) 51 See_Comment [Auto mated message] The system which ge nerated this result transmit swathi reference range : <=65. The reference range was not used to interpr et this result as deny l/abnormal. [place] 074992-06-28 04:12:00 Test Item Value Reference Range Interpretation Comments AST (test code = AST) 36 See_Comment [Auto mated message] The system which ge nerated this result transmit swathi reference range : <=37. The reference range was not used to interpr et this result as deny l/abnormal. [place] 074992-06-28 04:12:00 Test Item Value Reference Range Interpretation Comments Alk Phos (test code = Alk Phos) 383 39-136 [place] 074992-06-28 04:12:00 Test Item Value Reference Range Interpretation Comments Bili Total (test code = Bili Total) 1.1 0.2-1.3 [place] 074992-06-28 04:12:00 Test Item Value Reference Range Interpretation Comments AGAP (test code = AGAP) 13.9 10.0-20.0 [place] 074992-06-28 04:12:00 Test Item Value Reference Range Interpretation Comments B/C Ratio (test code = B/C Ratio) 7 1 6-25 [place] 074992-06-28 04:12:00 Test Item Value Reference Range Interpretation Comments Globulin (test code = Globulin) 4.3 2.7-4.2 [place] 074992-06-28 04:12:00 Test Item Value Reference Range Interpretation Comments A/G Ratio (test code = A/G Ratio) 0.6 1 0.7-1.6 [facility]Equals[facility] [id number] 04:12:00 Test Item Value Reference Range Interpretation Comments eGFR (test code = eGFR) 5 [facility] [id number] 04:12:00 Test Item Value Reference Range Interpretation Comments Procalcitonin Lvl (test 0.69 See_Comment [Au tomated message] code = Procalcitonin Lvl) Th e system which generated this result transmitted ref erence range: <=0.10. The reference range was not used to interpr et this result as normal/abnormal . [facility] HospitalGluijflMEASHCIMBC2575-78-13 04:12:00 Test Item Value Reference Range Interpretation Comments WBC (test code = WBC) 4.1 3.7-10.4 [facility] HospitalPgpyphtWYUBEWJVQM6972-10-48 04:12:00 Test Item Value Reference Range Interpretation Comments RBC (test code = RBC) 1.78 4.70-6.10 [facility] HospitalSxtfdneKHHFQDSHNT3812-41-32 04:12:00 Test Item Value Reference Range Interpretation Comments Hgb (test code = Hgb) 6.5 14.0-18.0 [facility] HospitalGfbfrnxLEZGQPMRKF7964-41-09 04:12:00 Test Item Value Reference Range Interpretation Comments Hct (test code = Hct) 19.5 42.0-54.0 [facility] HospitalUfouusnYANLWPFTKG8240-97-95 04:12:00 Test Item Value Reference Range Interpretation Comments MCV (test code = MCV) 110.0 80.0-94.0 [facility] HospitalSyowyluANPHVOHTGF4682-52-23 04:12:00 Test Item Value Reference Range Interpretation Comments MCH (test code = MCH) 36.5 pg 27.0-31.0 [facility] HospitalHfuzajvXBVCLSQMUK4644-07-02 04:12:00 Test Item Value Reference Range Interpretation Comments MCHC (test code = MCHC) 33.2 32.0-36.0 [facility] HospitalGenefnmUPUQUJTAUE4745-52-39 04:12:00 Test Item Value Reference Range Interpretation Comments RDW (test code = RDW) 19.0 11.5-14.5 [facility] HospitalDcxceneLNYYRFITUL5970-63-96 04:12:00 Test Item Value Reference Range Interpretation Comments Platelet (test code = Platelet) 180 133-450 [place] 152042-06-28 04:12:00 Test Item Value Reference Range Interpretation Comments MPV (test code = MPV) 8.3 7.4-10.4 [place] 152042-06-28 04:12:00 Test Item Value Reference Range Interpretation Comments PTT (test code = PTT) 45.4 s 22.9-35.8 [place] 152042-06-28 04:12:00 Test Item Value Reference Range Interpretation Comments PT (test code = PT) 19.1 s 12.0-14.7 [place] [address]-06-28 04:12:00 Test Item Value Reference Range Interpretation Comments INR (test code = INR) 1.62 1 0.85-1.17 [place] 152042-06-28 04:12:00 Test Item Value Reference Range Interpretation Comments RBC Morph (test code = See Note (11/24/21 RBC Morph) 11:12 PM) [place] 152042-06-28 04:12:00 Test Item Value Reference Range Interpretation Comments Plt Morph (test code = Normal (11/24/21 11:12 Plt Morph) PM) [facility] HospitalTfpmwaxUHFDGQXQOK5018-45-55 04:12:00 Test Item Value Reference Range Interpretation Comments Segs (test code = Segs) 72.2 45.0-75.0 [facility] HospitalCfjjwzjOWDVXKKJRM7743-72-16 04:12:00 Test Item Value Reference Range Interpretation Comments Lymphocytes (test code = Lymphocytes) 16.2 20.0-40.0 [place] 152042-06-28 04:12:00 Test Item Value Reference Range Interpretation Comments Monocytes (test code = Monocytes) 8.0 2.0-12.0 [place] [address]-06-28 04:12:00 Test Item Value Reference Range Interpretation Comments Eosinophils (test code = 2.7 See_Comment [A utomated message] The Eosinophils) system which ge nerated this result tra nsmitted reference range : <=4.0. The reference r samantha was not used to int erpret this result as normal/abnormal . [facility] HospitalYzczraeGZQZMNODSW7286-40-80 04:12:00 Test Item Value Reference Range Interpretation Comments Basophils (test code = 0.9 See_Comment [Aut omated message] The Basophils) system which ge nerated this result tra nsmitted reference range : <=1.0. The reference r samantha was not used to int erpret this result as normal/abnormal . [facility] HospitalRrwpdarJUEIXTIAUZ9965-71-70 04:12:00 Test Item Value Reference Range Interpretation Comments Neutrophils # (test code = Neutrophils 2.9 1.5-8.1 #) [facility] HospitalWaiakypCNHSOQHYOY7840-97-86 04:12:00 Test Item Value Reference Range Interpretation Comments Lymphocytes # (test code = Lymphocytes 0.7 1.0-5.5 #) [facility] HospitalVkspywaGYHYVCRSAG2216-86-36 04:12:00 Test Item Value Reference Range Interpretation Comments Monocytes # (test code 0.3 See_Comment [Aut omated message] The = Monocytes #) system which generated this result tra nsmitted reference range : <=0.8. The reference r samantha was not used to int erpret this result as normal/abnormal . [facility] HospitalRsivwkhKQJLMSSTBP5075-78-66 04:12:00 Test Item Value Reference Range Interpretation Comments Eosinophils # (test code 0.1 See_Comment [A utomated message] The = Eosinophils #) system whic h generated this result tra nsmitted reference range : <=0.5. The reference r samantha was not used to int erpret this result as normal/abnormal . [facility] HospitalQrnbtpdZQBNLBRJLU3787-49-62 04:12:00 Test Item Value Reference Range Interpretation Comments Anisocyte (test code = 1+ *ABN*(11/24/21 Anisocyte) 11:12 PM) [facility] HospitalNkpltcvMMMSYOJFTG8887-81-58 04:12:00 Test Item Value Reference Range Interpretation Comments Macrocyte (test code = 1+ *ABN*(11/24/21 Macrocyte) 11:12 PM) [facility] HospitalXgxwyjkCPTATERQCQ4611-23-65 04:12:00 Test Item Value Reference Range Interpretation Comments Microcyte (test code = 1+ *ABN*(11/24/21 Microcyte) 11:12 PM[facility] FWGMO[facility]D6392[facility] 04:12:00 Test Item Value Reference Range Interpretation Comments ABO/Rh (test code = ABO/Rh) AB POS [facility] [id number] 04:12:00 Test Item Value Reference Range Interpretation Comments Antibody Scrn (test Negative (11/24/21 code = Antibody Scrn) 11:12 PM) [facility] [id number] 04:12:00 Test Item Value Reference Range Interpretation Comments Total CK (test code = Total CK) 86 12-191 [facility] SWCVQOJ0570-96-48 04:12:00 Test Item Value Reference Range Interpretation Comments HS Troponin I (test code = HS Troponin 316 I) [facility] [id number] 04:12:00 Test Item Value Reference Range Interpretation Comments Glucose Lvl (test code = Glucose Lvl) 261 70-99 [facility]2022-06-28 04:12:00 Test Item Value Reference Range Interpretation Comments BUN (test code = BUN) 60 7-22 [facility]2022-06-28 04:12:00 Test Item Value Reference Range Interpretation Comments Creatinine Lvl (test code = Creatinine 8.49 0.50-1.40 Lvl) [facility]2022-06-28 04:12:00 Test Item Value Reference Range Interpretation Comments Sodium Lvl (test code = Sodium Lvl) 133 135-145 [facility] [id number] 04:12:00 Test Item Value Reference Range Interpretation Comments Potassium Lvl (test code = Potassium 4.9 3.5-5.1 Lvl) [facility] [id number] 04:12:00 Test Item Value Reference Range Interpretation Comments Chloride Lvl (test code = Chloride Lvl) 93 95-109 [facility]2022-06-28 04:12:00 Test Item Value Reference Range Interpretation Comments CO2 (test code = CO2) 31 24-32 [facility]2022-06-28 04:12:00 Test Item Value Reference Range Interpretation Comments Calcium Lvl (test code = Calcium Lvl) 9.1 8.5-10.5 [facility] [id number] 04:12:00 Test Item Value Reference Range Interpretation Comments Total Protein (test code = Total 6.8 6.4-8.4 Protein) [facility]2022-06-28 04:12:00 Test Item Value Reference Range Interpretation Comments Albumin Lvl (test code = Albumin Lvl) 2.5 3.5-5.0 [facility] [id number] 04:12:00 Test Item Value Reference Range Interpretation Comments ALT (test code = ALT) 51 See_Comment [Auto mated message] The system which ge nerated this result transmit swathi reference range : <=65. The reference range was not used to interpr et this result as deny l/abnormal. [facility] [employer] [id number] 04:12:00 Test Item Value Reference Range Interpretation Comments AST (test code = AST) 36 See_Comment [Auto mated message] The system which ge nerated this result transmit swathi reference range : <=37. The reference range was not used to interpr et this result as deny l/abnormal. [facility] [employer] [id number] 04:12:00 Test Item Value Reference Range Interpretation Comments Alk Phos (test code = Alk Phos) 383 39-136 [facility] [id number] 04:12:00 Test Item Value Reference Range Interpretation Comments Bili Total (test code = Bili Total) 1.1 0.2-1.3 [facility] [id number] 04:12:00 Test Item Value Reference Range Interpretation Comments AGAP (test code = AGAP) 13.9 10.0-20.0 [facility] [employer] [id number] 04:12:00 Test Item Value Reference Range Interpretation Comments B/C Ratio (test code = B/C Ratio) 7 1 6-25 [facility] [id number] 04:12:00 Test Item Value Reference Range Interpretation Comments Globulin (test code = Globulin) 4.3 2.7-4.2 [facility] [employer] [id number] 04:12:00 Test Item Value Reference Range Interpretation Comments A/G Ratio (test code = A/G Ratio) 0.6 1 0.7-1.6 [facility] [id number] 04:12:00 Test Item Value Reference Range Interpretation Comments eGFR (test code = eGFR) 5 [facility] [employer] [id number] 04:12:00 Test Item Value Reference Range Interpretation Comments Procalcitonin Lvl (test 0.69 See_Comment [Au tomated message] code = Procalcitonin Lvl) Th e system which generated this result transmitted ref erence range: <=0.10. The reference range was not used to interpr et this result as normal/abnormal . [facility] HospitalYavznaaFSHJYVKAZK3078-88-43 04:12:00 Test Item Value Reference Range Interpretation Comments WBC (test code = WBC) 4.1 3.7-10.4 [facility] HospitalXfvvisnQVVDVVAEEQ8039-48-32 04:12:00 Test Item Value Reference Range Interpretation Comments RBC (test code = RBC) 1.78 4.70-6.10 [facility] HospitalVcvxddsEJKSZJRHCM0375-10-54 04:12:00 Test Item Value Reference Range Interpretation Comments Hgb (test code = Hgb) 6.5 14.0-18.0 [facility] HospitalDgbyyxdYDJTJRBIDB8598-73-84 04:12:00 Test Item Value Reference Range Interpretation Comments Hct (test code = Hct) 19.5 42.0-54.0 [facility] HospitalHwvanteLIQVFZCABN7793-80-36 04:12:00 Test Item Value Reference Range Interpretation Comments MCV (test code = MCV) 110.0 80.0-94.0 [facility] HospitalApadcspZMATUDTKMY2726-28-32 04:12:00 Test Item Value Reference Range Interpretation Comments MCH (test code = MCH) 36.5 pg 27.0-31.0 [facility] HospitalLgstbkjKLKLXGJBTP9488-37-64 04:12:00 Test Item Value Reference Range Interpretation Comments MCHC (test code = MCHC) 33.2 32.0-36.0 [facility] HospitalUskqhrwNNNSRNTJNK5922-80-47 04:12:00 Test Item Value Reference Range Interpretation Comments RDW (test code = RDW) 19.0 11.5-14.5 [facility] HospitalOkqtlikMRKSQJGPAY9155-15-03 04:12:00 Test Item Value Reference Range Interpretation Comments Platelet (test code = Platelet) 180 133-450 [facility] HospitalHdlruzsLVYENPEQQK7139-66-43 04:12:00 Test Item Value Reference Range Interpretation Comments MPV (test code = MPV) 8.3 7.4-10.4 [facility] HospitalGcwbbjmRUEWORMFPE6842-75-97 04:12:00 Test Item Value Reference Range Interpretation Comments PTT (test code = PTT) 45.4 s 22.9-35.8 [facility] HospitalZtipiavNVKMSEEWHR3650-22-10 04:12:00 Test Item Value Reference Range Interpretation Comments PT (test code = PT) 19.1 s 12.0-14.7 [place] [address]-06-28 04:12:00 Test Item Value Reference Range Interpretation Comments INR (test code = INR) 1.62 1 0.85-1.17 [facility] HospitalHfulbnnZJFXPDOZGB2982-10-35 04:12:00 Test Item Value Reference Range Interpretation Comments RBC Morph (test code = See Note (11/24/21 RBC Morph) 11:12 PM) [facility] HospitalYmbjbxcKFUMYOUUXY7159-10-85 04:12:00 Test Item Value Reference Range Interpretation Comments Plt Morph (test code = Normal (11/24/21 11:12 Plt Morph) PM) [facility] HospitalMtnraudAOXMSBECJB3783-09-91 04:12:00 Test Item Value Reference Range Interpretation Comments Segs (test code = Segs) 72.2 45.0-75.0 [place] 152042-06-28 04:12:00 Test Item Value Reference Range Interpretation Comments Lymphocytes (test code = Lymphocytes) 16.2 20.0-40.0 [facility] HospitalGdwpxmwPSKRQXGEXQ4206-30-25 04:12:00 Test Item Value Reference Range Interpretation Comments Monocytes (test code = Monocytes) 8.0 2.0-12.0 [facility] HospitalSedxuseECJLJFRDAC8042-45-98 04:12:00 Test Item Value Reference Range Interpretation Comments Eosinophils (test code = 2.7 See_Comment [A utomated message] The Eosinophils) system which ge nerated this result tra nsmitted reference range : <=4.0. The reference r samantha was not used to int erpret this result as normal/abnormal . [facility] HospitalAmpuahpOQTQTQXPSC9872-61-71 04:12:00 Test Item Value Reference Range Interpretation Comments Basophils (test code = 0.9 See_Comment [Aut omated message] The Basophils) system which ge nerated this result tra nsmitted reference range : <=1.0. The reference r samantha was not used to int erpret this result as normal/abnormal . [facility] HospitalHmxnpaoMAYWZKVCIT8299-58-87 04:12:00 Test Item Value Reference Range Interpretation Comments Neutrophils # (test code = Neutrophils 2.9 1.5-8.1 #) [facility] HospitalPxbvtnrPSXPSVQARX4713-66-47 04:12:00 Test Item Value Reference Range Interpretation Comments Lymphocytes # (test code = Lymphocytes 0.7 1.0-5.5 #) [place] 152042-06-28 04:12:00 Test Item Value Reference Range Interpretation Comments Monocytes # (test code 0.3 See_Comment [Aut omated message] The = Monocytes #) system which generated this result tra nsmitted reference range : <=0.8. The reference r samantha was not used to int erpret this result as normal/abnormal . [facility] HospitalHeesxkbQTLYINRDLI7856-33-26 04:12:00 Test Item Value Reference Range Interpretation Comments Eosinophils # (test code 0.1 See_Comment [A utomated message] The = Eosinophils #) system whic h generated this result tra nsmitted reference range : <=0.5. The reference r samantha was not used to int erpret this result as normal/abnormal . [facility] HospitalZbdmlbsSLVGXDOGYM4171-72-09 04:12:00 Test Item Value Reference Range Interpretation Comments Anisocyte (test code = 1+ *ABN*(11/24/21 Anisocyte) 11:12 PM[id number] 04:12:00 Test Item Value Reference Range Interpretation Comments Macrocyte (test code = 1+ *ABN*(11/24/21 Macrocyte) 11:12 PM) [facility] CenterTbyrvmkCGENZSYIFX7020-05-98 04:12:00 Test Item Value Reference Range Interpretation Comments Microcyte (test code = 1+ *ABN*(11/24/21 [employer]) 11:12 PM) [id number]00 Test Item Value Reference Range Interpretation Comments A1C (test code = 4548-4) 8.8 HEMOGLOBIN [id number] 00:00:00 Test Item Value Reference Range Interpretation Comments A1C (test code = 4548-4) 8.3 HEMOGLOBIN [id number] 00:00:00 Test Item Value Reference Range Interpretation Comments A1C (test code = 4548-4) 10.3 Notes Date/Time Note Provider Source 2022-01-02 12:48:02-00:00 PROCEDURE INFORMATION: [facility] Exam: XR Chest Exam date and [...] Chester Kemp MD On 01/02/2022 13:11:40; VR-KBRYA [id number] 2534-08-05 12:48:02-00:00 PROCEDURE INFORMATION: [facility] Exam: XR Chest Exam date and [...] Chester Kemp MD On 01/02/2022 13:11:40; VR-KBRYA [id number] 2953-08-05 12:48:02-00:00 PROCEDURE INFORMATION: [facility] Exam: XR Chest Exam date and [...] Chester Kemp MD On 01/02/2022 13:11:40; VR-KBRYA [id number] 4627-08-05 12:48:02-00:00 PROCEDURE INFORMATION: [facility] Exam: XR Chest Exam date and [...] Chester Kemp MD On 01/02/2022 13:11:40; VR-KBRYA [id number] 1954-08-05 12:48:02-00:00 PROCEDURE INFORMATION: [facility] Exam: XR Chest Exam date and [...] Chester Kemp MD On 01/02/2022 13:11:40; VR-KBRYA [id number] 12:00:00-00:00 Radiation Dose CTDIVOL = 0 ( mGy): DLP = 1052.78 (mGy-cm) [facility] PROCEDURE INFORMATION: Exam: CTA Chest With Contrast Exam date and time: 12/15/2021 12:49 PM Age: 76 years old Clinical indication: /possible pe, positive for covid-19, respiratory infections and infla 12/14/21 TECHNIQUE: Imaging protocol: Computed tomographic a ngiography of the chest with contrast. 3D rendering (Not supervised by radiologist): WI P and/or 3D reconstructed images were created [...] Alexis Maloney MD On 12/15/2021 15:45:07; VR- [id number] 2021-12-15 12:00:00-00:00 Radiation Dose CTDIVOL = 0 ( mGy): DLP = 1052.78 (mGy-cm) [facility] PROCEDURE INFORMATION: Exam: CTA Chest With Contrast Exam date and time: 12/15/2021 12:49 PM Age: 76 years old Clinical indication: /possible pe, positive for covid-19, respiratory infections and infla 12/14/21 TECHNIQUE: Imaging protocol: Computed tomographic a ngiography of the chest with contrast. 3D rendering (Not supervised by radiologist): WI P and/or 3D reconstructed images were created [...] Alexis Maloney MD On 12/15/2021 15:45:07; VR- [id number] 2021-12-15 12:00:00-00:00 Radiation Dose CTDIVOL = 0 ( mGy): DLP = 1052.78 (mGy-cm) [facility] PROCEDURE INFORMATION: Exam: CTA Chest With Contrast Exam date and time: 12/15/2021 12:49 PM Age: 76 years old Clinical indication: /possible pe, positive for covid-19, respiratory infections and infla 12/14/21 TECHNIQUE: Imaging protocol: Computed tomographic a ngiography of the chest with contrast. 3D rendering (Not supervised by radiologist): WI P and/or 3D reconstructed images were created [...] the tracheobro nchial tree consistent with tracheobronchomalacia. Amitabha Haider MD On 12/15/2021 15:45:07; VR- [id number] 2021-12-15 12:00:00-00:00 Radiation Dose CTDIVOL = 0 ( mGy): DLP = 1052.78 (mGy-cm) [facility] PROCEDURE INFORMATION: Exam: CTA Chest With Contrast Exam date and time: 12/15/2021 12:49 PM Age: 76 years old Clinical indication: /possible pe, positive for covid-19, respiratory infections and infla 12/14/21 TECHNIQUE: Imaging protocol: Computed tomographic a ngiography of the chest with contrast. 3D rendering (Not supervised by radiologist): WI P and/or 3D reconstructed images were created [...] Alexis Maloney MD On 12/15/2021 15:45:07; VR- [id number] 2021-12-15 12:00:00-00:00 Radiation Dose CTDIVOL = 0 ( mGy): DLP = 1052.78 (mGy-cm) [facility] PROCEDURE INFORMATION: Exam: CTA Chest With Contrast Exam date and time: 12/15/2021 12:49 PM Age: 76 years old Clinical indication: /possible pe, positive for covid-19, respiratory infections and infla 12/14/21 TECHNIQUE: Imaging protocol: Computed tomographic a ngiography of the chest with contrast. 3D rendering (Not supervised by radiologist): WI P and/or 3D reconstructed images were created [...] Alexis Maloney MD On 12/15/2021 15:45:07; CARMELA- [id number] 2021-12-14 15:50:31-00:00 PROCEDURE INFORMATION: [facility] Exam: XR Chest Exam date and [...] base. Chester Back MD On 12/14/2021 16:21:28; PILARC [id number] 2021-12-14 15:50:31-00:00 PROCEDURE INFORMATION: [facility] Exam: XR Chest Exam date and [...] base. Chester Back MD On 12/14/2021 16:21:28; PILARC [id number] 2021-12-14 15:50:31-00:00 PROCEDURE INFORMATION: [facility] Exam: XR Chest Exam date and [...] 16:21:28; SHARRI __[id number] 2021-12-14 15:50:31-00:00 PROCEDURE INFORMATION: [facility] Exam: XR Chest Exam date and [...] 16:21:28; SHARRI __[id number] 2021-12-14 15:50:31-00:00 PROCEDURE INFORMATION: [facility] Exam: XR Chest Exam date and [...] Back MD On 12/14/2021 16:21:28; SHARRI __[id number] 2021-12-03 20:30:42-00:00 PROCEDURE INFORMATION: [facility] Exam: XR Chest Exam date and [...] Avtar Fortune MD On 12/03/2021 21:17:23; VR-[id number] 2021-12-03 20:30:42-00:00 PROCEDURE INFORMATION: [facility] Exam: XR Chest Exam date and [...] Avtar Fortune MD On 12/03/2021 21:17:23; VR-KPATE0 [id number] 2021-12-03 20:30:42-00:00 PROCEDURE INFORMATION: [facility] Exam: XR Chest Exam date and [...] Avtar Fortune MD On 12/03/2021 21:17:23; VR-KPATE0 [id number] 2021-12-03 20:30:42-00:00 PROCEDURE INFORMATION: [facility] Exam: XR Chest Exam date and [...] Avtar Fortune MD On 12/03/2021 21:17:23; VR-KPATE0 [id number] 2021-12-03 20:30:42-00:00 PROCEDURE INFORMATION: [facility] Exam: XR Chest Exam date and [...] Avtar Fortune MD On 12/03/2021 21:17:23; VR-KPATE0 [id number] 2021-11-25 05:45:00-00:00 PROCEDURE INFORMATION: [facility] Exam: US Duplex Lower Extremity Veins, [...] Cole Barnes MD On 11/25/2021 07:01:56; VR-GSYN [id number] 2021-11-25 05:45:00-00:00 PROCEDURE INFORMATION: [facility] Exam: US Abdomen, Limited; Right Upper [...] Kit Pollard MD On 11/25/2021 07:54:47; VR [id number] 2021-11-25 05:45:00-00:00 PROCEDURE INFORMATION: [facility] Exam: US Duplex Lower Extremity Veins, [...] Cole Barnes MD On 11/25/2021 07:01:56; VR-GSYN [id number] 2021-11-25 05:45:00-00:00 PROCEDURE INFORMATION: [facility] Exam: US Abdomen, Limited; Right Upper [...] Kit Pollard MD On 11/25/2021 07:54:47; VR [id number] 2021-11-25 05:45:00-00:00 PROCEDURE INFORMATION: [facility] Exam: US Duplex Lower Extremity Veins, [...] Cole Barnes MD On 11/25/2021 07:01:56; VR-GSYN [id number] 2021-11-25 05:45:00-00:00 PROCEDURE INFORMATION: [facility] Exam: US Abdomen, Limited; Right Upper [...] Kit Pollard MD On 11/25/2021 07:54:47; VR [id number] 2021-11-25 05:45:00-00:00 PROCEDURE INFORMATION: [facility] Exam: US Duplex Lower Extremity Veins, [...] Cole Barnes MD On 11/25/2021 07:01:56; VR-GSYN [id number] 2021-11-25 05:45:00-00:00 PROCEDURE INFORMATION: [facility] Exam: US Abdomen, Limited; Right Upper [...] Kit Pollard MD On 11/25/2021 07:54:47; VR [id number] 2021-11-25 05:45:00-00:00 PROCEDURE INFORMATION: [facility] Exam: US Duplex Lower Extremity Veins, [...] Cole Barnes MD On 11/25/2021 07:01:56; VR-GSYN [id number] 2021-11-25 05:45:00-00:00 PROCEDURE INFORMATION: [facility] Exam: US Abdomen, Limited; Right Upper [...] Kit Pollard MD On 11/25/2021 07:54:47; VR [id number] 2021-11-25 02:17:08-00:00 PROCEDURE INFORMATION: [facility] Exam: XR Right Foot Exam date [...] Surendra Chavis MD On 11/25/2021 02:27:52; VR-[id number] 2021-11-25 02:17:08-00:00 PROCEDURE INFORMATION: [facility] Exam: XR Right Foot Exam date [...] Surendra Chavis MD On 11/25/2021 02:27:52; VR-[id number] 2021-11-25 02:17:08-00:00 PROCEDURE INFORMATION: [facility] Exam: XR Right Foot Exam date [...] Surendra Chavis MD On 11/25/2021 02:27:52; VR-[id number] [id number] 2021-11-25 02:17:08-00:00 PROCEDURE INFORMATION: [facility] Exam: XR Right Foot Exam date [...] fracture. Surendra Chavis MD On 11/25/2021 02:27:52; [id number] 2021-11-25 02:17:08-00:00 PROCEDURE INFORMATION: [facility] Exam: XR Right Foot Exam date [...] fracture. Surendra Chavis MD On 11/25/2021 02:27:52; CARMELA-[id number] [id number] 2021-11-24 23:56:05-00:00 Radiation Dose CTDIVOL = 0 ( mGy): DLP = 675.2 (mGy-cm) [facility] PROCEDURE INFORMATION: Exam: CT Abdomen And [...] L2 and L3 Schmorl's nodes are suggested. Lyt ic metastasis of the L2 vertebral body is an additional differential con sideration and may be further assessed by dedicated lumbar spine MRI w ithout and with contrast if clinically warranted. 10. See above for additional nonacute findings. COMMENTS: Consistent with the [employer] Incidental Findings [employer] [...] Surendra Chavis MD On 11/25/2021 00:47:46; VR-[id number] [id number] 2021-11-24 23:56:05-00:00 Radiation Dose CTDIVOL = 0 ( mGy): DLP = 675.2 (mGy-cm) [facility] PROCEDURE INFORMATION: Exam: CT Abdomen And [...] additional nonacute findings. COMMENTS: Consistent with the [employer] Incidental Findings Committee [...] Surendra Chavis MD On 11/25/2021 00:47:46; VR-[id number] [id number] 2021-11-24 23:56:05-00:00 Radiation Dose CTDIVOL = 0 ( mGy): DLP = 675.2 (mGy-cm) [facility] PROCEDURE INFORMATION: Exam: CT Abdomen And [...] additional nonacute findings. COMMENTS: Consistent with the [employer] Incidental Findings Committee [...] Surendra Chavis MD On 11/25/2021 00:47:46; VR-SMITT0 [id number] 2021-11-24 23:56:05-00:00 Radiation Dose CTDIVOL = 0 ( mGy): DLP = 675.2 (mGy-cm) [facility] PROCEDURE INFORMATION: Exam: CT Abdomen And [...] additional nonacute findings. COMMENTS: Consistent with the [employer] Incidental Findings Committee [...] Surendra Chavis MD On 11/25/2021 00:47:46; VR-[id number] [id number] 2021-11-24 23:56:05-00:00 Radiation Dose CTDIVOL = 0 ( mGy): DLP = 675.2 (mGy-cm) [facility] PROCEDURE INFORMATION: Exam: CT Abdomen And [...] additional nonacute findings. COMMENTS: Consistent with the [employer] Incidental Findings Committee [...] Surendra Chavis MD On 11/25/2021 00:47:46; VR-[id number] 2021-11-24 22:50:28-00:00 PROCEDURE INFORMATION: [facility] Exam: XR Chest Exam date and [...] Surendra Chavis MD On 11/24/2021 22:53:49; VR-[id number] 2021-11-24 22:50:28-00:00 [facility] Ex[facility]: XR Chest Exam date and [...] Surendra Chavis MD On 11/24/2021 22:53:49; VR-[id number] [id number] 2021-11-24 22:50:28-00:00 PROCEDURE INFORMATION: [facility] Exam: XR Chest Exam date and [...] Surendra Chavis MD On 11/24/2021 22:53:49; CARMELA-SMITT0 [id number] 2021-11-24 22:50:28-00:00 PROCEDURE INFORMATION: [facility] Exam: XR Chest Exam date and [...] Surendra Chavis MD On 11/24/2021 22:53:49; CARMELA-SMITT0 [id number] 2021-11-24 22:50:-00:00 PROCEDURE INFORMATION: [facility] Exam: XR Chest Exam date and [...] Surendra Chavis MD On 11/24/2021 22:53:49; CARMELA-[id number]
--- NOTE | 2022-12-25 19:40 | RAD REPORT ---
EXAM DESCRIPTION: Tony Single View12/25/2022 7:27 pm CLINICAL HISTORY: Anemia/hypertension COMPARISON: October 2022 FINDINGS: Small to moderate right pleural effusion without significant change. Right basilar atelect asis Left lung appears clear of acute infiltrate. Heart is moderately enlarged Hiatal hernia
[2022-12-25 20:14] LABS: Absolute Lymphocytes (CBC) 0.6 K/uL (0.7-4.9); Hematocrit 19.8 % (39.6-49.0); Lymphocytes % 17.2 % (15.3-44.8); MCV 83.4 fL (80-100); MPV 7.2 fL (7.6-11.3); RBC Red Blood Cell Count 2.37 M/uL (4.33-5.43)
[2022-12-25 20:17] LABS: Protime INR 1.49
[2022-12-25 20:29] LABS: Magnesium 2.3 mg/dL (1.6-2.4); Potassium 3.1 mEq/L (3.5-5.1)
[2022-12-25 20:32] LABS: Troponin High Sensitivity 163.8 pg/mL (<58.9)
--- NOTE | 2022-12-25 20:50 | EDPHYS ---
Physician Documentation [facility] Name: Guzman Mayers Age: 77 yrs Sex: Male : 1945 Arrival Date: 12/25/2022 Time: 17:27 Bed 3 Private MD: ED Physician Anderson Mitchell HPI: 12/25 18:45 This 77 yrs old Male presents to ER via Wheelchair with complaints of Blood cp tranfusion. 18:45 Patient is a 77-year-old male with past medical history for end-stage renal disease, cp hypertension, COPD and CHF who presents to the emergency department after being referred for anemia. Patient reports completing dialysis today reports that his blood work today showed that his hemoglobin was low and that he he needed to go to the emergency department for blood transfusion. Patient does complain of just general weakness but no other complaints expressed. Patient has been transfused in the past without complications. Historical: - Allergies: 17:35 Codeine; hb 17:35 GABAPENTIN; hb - PMHx: 17:35 CHF; High Cholesterol; Dialysis; MWF; HTN; COPD; blood transfusion; ADD/ADHD; CKD; hb Diabetes - IDDM; Hypertension; - PSHx: 17:35 L arm dialysis access; hb - Immunization history:: Adult Immunizations up to date. - Social history:: Smoking status: Patient denies any tobacco usage or history of. ROS: 18:50 Constitutional: Negative for body aches, chills, fever, poor PO intake. cp 18:50 Eyes: Negative for injury, pain, redness, and discharge. cp 18:50 ENT: Negative for drainage from ear(s), ear pain, sore throat, difficulty swallowing, difficulty handling secretions. 18:50 Cardiovascular: Negative for chest pain. 18:50 Respiratory: Negative for cough, shortness of breath, wheezing. 18:50 Abdomen/GI: Negative for abdominal pain, nausea, vomiting, and diarrhea, black/tarry stool, rectal bleeding. 18:50 Neuro: Positive for weakness, Negative for altered mental status, headache, numbness, syncope. 18:50 All other systems are negative. Exam: 18:55 Constitutional: The patient appears in no acute distress, alert, awake, cp non-diaphoretic, non-toxic, well developed, well nourished. 18:55 Head/Face: Normocephalic, atraumatic. cp 18:55 Eyes: Periorbital structures: appear normal, Conjunctiva: normal, no exudate, no injection, Sclera: no appreciated abnormality, Lids and lashes: appear normal, bilaterally. 18:55 ENT: External ear(s): are unremarkable, Nose: is normal, Mouth: Lips: moist, Oral mucosa: pink and intact, moist, Posterior pharynx: is normal, airway is patent, no erythema, no exudate. 18:55 Chest/axilla: Inspection: normal. 18:55 Cardiovascular: Rate: bradycardic, Rhythm: regular, Edema: ankle edema, that is very mild, JVD: is not appreciated. 18:55 Respiratory: the patient does not display signs of respiratory distress, Respirations: normal, no use of accessory muscles, no retractions, labored breathing, is not present, Breath sounds: decreased breath sounds, are not appreciated, stridor, is not appreciated, wheezing: is not appreciated. 18:55 Abdomen/GI: Inspection: abdomen appears normal, Palpation: abdomen is soft and non-tender, in all quadrants. 18:55 Back: pain, is absent, ROM is normal. 18:55 Neuro: Orientation: to person, place \T\ time. Mentation: is normal, Motor: moves all fours, strength is normal, Sensation: no obvious gross deficits. 19:55 ECG was reviewed by the Attending Physician. cp 20:50 : Rectal exam: Stool: brown. cp Vital Signs: 17:33 BP 141 / 99; Pulse 53; Resp 20; Temp 97.9(TE); Pulse Ox 100% on R/A; Weight 85.28 kg; hb Height 5 ft. 10 in. ; Pain 2/10; 19:23 BP 113 / 44; Pulse 57; Resp 17; Pulse Ox 97% on R/A; kd3 21:26 Pulse 66; Resp 19; Pulse Ox 100% on R/A; kd3 22:24 BP 132 / 54; Pulse 76; Resp 20; Temp 97.9(TE); Pulse Ox 95% on R/A; kd3 22:37 BP 131 / 63; Pulse 75; Resp 19; Temp 97.7(O); Pulse Ox 98% on R/A; kd3 17:33 Body Mass Index 26.97 (85.28 kg, 177.8 cm) hb 17:33 Pain Scale: Adult hb MDM: 17:41 Patient medically screened. [email or web address] 20:50 Data reviewed: vital signs, nurses notes, lab test result(s), EKG, radiologic studies, cp plain films. 20:50 Consideration of Admission/Observation Patient was admitted/placed on observation. cp Management of patient was discussed with the following: Hospitalist: Mary Ann Prieto, [employer] will admit after discussion. Care significantly affected by the following chronic conditions: Diabetes, Hypertension, Congestive Heart Failure, Chronic Kidney Disease. 12/25 18:38 Order name: Basic Metabolic Panel; Complete Time: 20:32 cp 12/25 20:32 Interpretation: Normal except: NA 135; K 3.1; GLUC 225; CRE 1.92; GFR 35. cp 12/25 18:38 Order name: CBC with Diff; Complete Time: 20:25 cp 12/25 20:26 Interpretation: Normal except: WBC 3.40; RBC 2.37; HGB 6.7; HCT 19.8; MPV 7.2; PLT 147; cp LYMA 0.6. 12/25 18:38 Order name: Magnesium; Complete Time: 20:32 cp 12/25 18:38 Order name: NT PRO-BNP; Complete Time: 20:32 cp 12/25 18:38 Order name: PT-INR; Complete Time: 20:25 cp 12/25 18:38 Order name: Troponin HS; Complete Time: 20:32 cp 12/25 20:32 Interpretation: Abnormal: Troponin HS 163.8. cp 12/25 18:38 Order name: Ptt, Activated; Complete Time: 20:25 cp 12/25 18:38 Order name: Type And Screen 12/25 20:13 Order name: Packed RBC Leukored [facility] 12/25 21:23 Order name: Urinalysis w/ reflexes [facility] 12/25 21:23 Order name: Basic Metabolic Panel [facility] 12/25 21:23 Order name: Basic Metabolic Panel [facility] 12/25 21:23 Order name: Basic Metabolic Panel [facility] 12/25 21:23 Order name: Basic Metabolic Panel [facility] 12/25 21:23 Order name: CBC with Automated Diff [facility] 12/25 21:23 Order name: CBC with Automated Diff [facility] 12/25 21:23 Order name: Creatine Phosphokinase [facility] 12/25 21:23 Order name: Creatine Phosphokinase [facility] 12/25 21:23 Order name: Creatine Phosphokinase [facility] 12/25 21:23 Order name: Creatine Phosphokinase [facility] 12/25 21:23 Order name: Magnesium [facility] 12/25 21:23 Order name: Magnesium [facility] 12/25 21:23 Order name: Magnesium [facility] 12/25 21:23 Order name: Magnesium [facility] 12/25 21:23 Order name: NT PRO-BNP [facility] 12/25 21:23 Order name: NT PRO-BNP [facility] 12/25 21:23 Order name: NT PRO-BNP [facility] 12/25 21:23 Order name: NT PRO-BNP [facility] 12/25 18:38 Order name: XRAY Chest (1 view); Complete Time: 19:43 cp 12/25 19:43 Interpretation: Report review. cp 12/25 18:38 Order name: EKG; Complete Time: 18:39 cp 12/25 21:15 Order name: CONS Physician Consult [facility] 12/25 21:23 Order name: Renal [facility] 12/25 18:38 Order name: Cardiac monitoring; Complete Time: 19:23 cp 12/25 18:38 Order name: EKG - Nurse/Tech; Complete Time: 20:00 cp 12/25 18:38 Order name: IV Saline Lock; Complete Time: 20:00 cp 12/25 18:38 Order name: Labs collected and sent; Complete Time: 20:00 cp 12/25 18:38 Order name: O2 Per Protocol; Complete Time: 19:40 cp 12/25 18:38 Order name: O2 Sat Monitoring; Complete Time: 19:40 cp EC:55 Rate is 56 beats/min. Rhythm is regular. RI interval is normal. QRS interval is cp prolonged at 186 msec. QT interval is prolonged at 518 msec. Interpreted by me. Reviewed by me. Administered Medications: 21:14 Drug: Potassium PO Effervescent Tablet 50 mEq Route: PO; kd3 22:26 Follow up: Response: No adverse reaction kd3 21:14 Drug: Aspirin PO Chewable Tablet 324 mg Route: PO; kd3 22:26 Follow up: Response: No adverse reaction kd3 Disposition Summary: 12/25/22 20:50 Hospitalization Ordered Hospitalization Status: Inpatient Admission cp Provider: Wendi Ruiz cp Location: Telemetry/MedSurg (Inpatient) cp Condition: Stable cp Problem: new cp Symptoms: have improved cp Bed/Room Type: Standard cp Room Assignment: 404(12/25/22 21:36) vc1 Diagnosis - Anemia, unspecified cp - End stage renal disease cp Forms: - Medication Reconciliation Form cp - SBAR form cp Signatures: Dispatcher [employer] EDAnderson Lovelace MD MD cha Page, Corey, PA PA cp Lucretia Hinojosa RN RN Kendra Brito RN RN kd3 Omaira Fisher RN RN vc1 Corrections: (The following items were deleted from the chart) 21:36 20:50 cp vc1
--- NOTE | 2022-12-25 20:50 | ER ---
Nurse's Notes [facility] Name: Guzman Mayers Age: 77 yrs Sex: Male : 1945 Arrival Date: 12/25/2022 Time: 17:27 Bed 3 Private MD: Diagnosis: Anemia, unspecified;End stage renal disease Presentation: 12/25 17:33 Chief complaint: Sent by for blood transfusion. Last HD was today. hb Coronavirus screen: At this time, the client does not indicate any symptoms associated with coronavirus-19. Ebola Screen: No symptoms or risks identified at this time. Initial Sepsis Screen: Does the patient meet any 2 criteria? No. Patient's initial sepsis screen is negative. Does the patient have a suspected source of infection? No. Patient's initial sepsis screen is negative. Risk Assessment: Do you want to hurt yourself or someone else? Patient reports no desire to harm self or others. Onset of symptoms was December 25, 2022. 17:33 Method Of Arrival: Wheelchair hb 17:33 Acuity: CHICHO 3 hb Historical: - Allergies: 17:35 Codeine; hb 17:35 GABAPENTIN; hb - PMHx: 17:35 CHF; High Cholesterol; Dialysis; MWF; HTN; COPD; blood transfusion; ADD/ADHD; CKD; hb Diabetes - IDDM; Hypertension; - PSHx: 17:35 L arm dialysis access; hb - Immunization history:: Adult Immunizations up to date. - Social history:: Smoking status: Patient denies any tobacco usage or history of. Screenin:22 [facility] ED Fall Risk Assessment (Adult) History of falling in the last 3 months, kd3 including since admission No falls in past 3 months (0 pts) Confusion or Disorientation No (0 pts) Intoxicated or Sedated No (0 pts) Impaired Gait Yes (1 pt) Mobility Assist Device Used Yes (1 pt) Altered Elimination No (0 pt) Score/Fall Risk Level 0 - 2 = Low Risk Maintained a safe environment. Abuse screen: Denies threats or abuse. Denies injuries from another. Nutritional screening: No deficits noted. Tuberculosis screening: No symptoms or risk factors identified. Assessment: 19:22 General: Appears uncomfortable, Behavior is calm, cooperative. Pain: Complains of pain kd3 in chest and abdomen. Neuro: Level of Consciousness is awake, alert, obeys commands, Oriented to person, place, time, situation. Cardiovascular: Patient's skin is warm and dry. Respiratory: Airway is patent Trachea midline Respiratory effort is even, unlabored. 20:31 Reassessment: troponin 163.8. vc1 22:20 General: Blood transfusion started . kd3 Vital Signs: 17:33 BP 141 / 99; Pulse 53; Resp 20; Temp 97.9(TE); Pulse Ox 100% on R/A; Weight 85.28 kg; hb Height 5 ft. 10 in. ; Pain 2/10; 19:23 BP 113 / 44; Pulse 57; Resp 17; Pulse Ox 97% on R/A; kd3 21:26 Pulse 66; Resp 19; Pulse Ox 100% on R/A; kd3 22:24 BP 132 / 54; Pulse 76; Resp 20; Temp 97.9(TE); Pulse Ox 95% on R/A; kd3 22:37 BP 131 / 63; Pulse 75; Resp 19; Temp 97.7(O); Pulse Ox 98% on R/A; kd3 17:33 Body Mass Index 26.97 (85.28 kg, 177.8 cm) hb 17:33 Pain Scale: Adult hb ED Course: 17:30 Patient arrived in ED. ts1 17:35 Triage completed. hb 17:36 Arm band placed on. hb 17:37 Anderson Feldman PA is PHCP. cp 17:37 Anderson Mitchell MD is Attending Physician. cp 19:22 Kendra Brito, GILSON is Primary Nurse. kd3 19:23 Patient has correct armband on for positive identification. Provided Education on: . kd3 19:29 XRAY Chest (1 view) In Process Unspecified. EDMS 20:00 Inserted saline lock: 18 gauge in right antecubital area, using aseptic technique. kd3 Blood collected. Missed attempt(s): 20 gauge in right forearm. 20:00 No provider procedures requiring assistance completed. kd3 20:49 Wendi Ruiz MD is Hospitalizing Provider. cp Administered Medications: 21:14 Drug: Potassium PO Effervescent Tablet 50 mEq Route: PO; kd3 22:26 Follow up: Response: No adverse reaction kd3 21:14 Drug: Aspirin PO Chewable Tablet 324 mg Route: PO; kd3 22:26 Follow up: Response: No adverse reaction kd3 Medication: 19:22 VIS not applicable for this client. kd3 Outcome: 20:50 Decision to Hospitalize by Provider. cp 22:37 Condition: stable kd3 23:07 Patient left the ED. vc1 Signatures: Dispatcher [employer] EDMS Anderson Feldman PA PA cp Baxter, Heather, RN RN Kendra Brito RN RN kd3 Omaira Fisher RN RN vc1 Guerita Painting PAS PAS ts1
--- NOTE | 2022-12-25 21:02 | P.HP ---
Certification for Inpatient Patient admitted to: Inpatient With expected LOS: <2 Midnights Practitioner: I am a practitioner with admitting privileges, knowledge of patient current condition, hospital course, and medical plan of care. Services: Services provided to patient in accordance with Admission requirements found in Title 42 Section 412.3 of the Code of Federal Regulations Patient History Date of Service: 12/25/22 Reason for admission: anemia History of Present Illness: 77-year-old male past medical history end-stage renal disease on hemodialysis Wednesday, COPD, hypertension, ADHD, diabetes type 2 insulin-dependent, presents to the emergency room after being referred from dialysis for anemia. He reports mild associated fatigue, shortness of breath with exertion. He reports fall last vist with Lumbar back pain, prior CT with Lumber fracutre, reports constipation form PRN meds. He denies chest pain, shortness of breath, dizziness, syncope, fever, nausea vomiting diarrhea, no reported hematochezia. Laboratory evaluation CBC hemoglobin 6.7, hematocrit 19.8, platelet count 147, no left shift. CBC mild hyponatremia 134, hypokalemia 3.1, elevated BUN 13 creatinine, 1.92, elevated troponin at 163.8, elevated BNP 30 2345. Plan to admit for anemia, end-stage renal disease on hemodialysis, fluid volume overload. Allergies codeine Allergy (Verified 09/29/22 22:59) Hallucinations gabapentin Adverse Reaction (Verified 09/29/22 22:59) Hallucinations Home Medications: Atorvastatin Calcium 40 mg PO BEDTIME 09/10/22 Carvedilol [Coreg] 12.5 mg PO BID 09/10/22 Citalopram Hydrobromide [Citalopram HBr] 20 mg PO DAILY 09/10/22 Pantoprazole [Protonix Tab*] 40 mg PO DAILY 09/10/22 Aspirin [Aspirin EC 81 MG] 81 mg PO DAILY 11/08/22 Metoprolol Tartrate [Lopressor*] 12.5 mg PO BID 11/08/22 - Past Medical/Surgical History Diabetic: Yes -: Hypertension -: Hyperlipidemia -: Diabetes type 2, insulin dependent -: End-stage renal disease, hemodialysis-Wednesday, Wednesday, Wednesday -: Diastolic CHF -: COPDon home O2 -: Anemia of chronic disease -: 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 He has 3 children - Family History mother and father -: Hypertension Notes: adopted - Social History Smoking Status: Never smoker Alcohol use: No CD- Drugs: No Caffeine use: No Review of Systems 10-point ROS is otherwise unremarkable Physical Examination - Physical Exam General: Alert, In no apparent distress, Oriented x3 HEENT: Atraumatic, Normocephalic Neck: Supple, 2+ carotid pulse no bruit Respiratory: Clear to auscultation bilaterally, Normal air movement, Crackles/rales Cardiovascular: No edema, Regular rate/rhythm, Normal S1 S2 Capillary refill: <2 Seconds Gastrointestinal: Normal bowel sounds, Hypoactive Musculoskeletal: No clubbing, No swelling Integumentary: No rashes Neurological: Normal speech, Normal strength at 5/5 x4 extr, Cranial nerves 3-12 intact - Studies Laboratory Data (last 24 hrs) 12/25/22 12/25/22 12/25/22 20:02 20:02 20:02 WBC 3.40 L Hgb 6.7 L Hct 19.8 L Plt Count 147 L PT 16.4 H INR 1.49 APTT 33.5 Sodium 135 L Potassium 3.1 L BUN 13 Creatinine 1.92 H Glucose 225 H Magnesium 2.3 Assessment and Plan - Plan Assessment plan Anemia, secondary to CKD Fluid volume overload NSTEMI secondary to fluid volume overload Low back pain Constipation End-stage renal disease on hemodialysis Hyponatremia Hypokalemia Essential hypertension Hyperlipidemia Assessment plan Anemia, secondary to CKD laboratory evaluation CBC hemoglobin 6.7, hematocrit 19.8, platelet count 147, no left shift. Type and cross 2 units Fluid volume overload End-stage renal disease on hemodialysis NSTEMI elevated BUN 13 creatinine, 1.92, elevated troponin at 163.8, elevated BNP 30 2345. No complaint of chest pain Nephrology consulted, HD MWF Hyponatremia, Hypokalemia mild hyponatremia 134, hypokalemia 3.1, Trend electrolytes replace as needed Essential hypertension Hyperlipidemia Low back pain Constipation Resume approp home meds Diet renal Full code DVT heparin Discharge Plan: Home Plan to discharge in: 48 Hours - Advance Directives Does patient have a Living Will: No Does patient have a Durable POA for Healthcare: No - Code Status/Comfort Care Code Status: Full Code Physician Review: Patient Assessed, Agree with Above Assessment and Plan Critical Care: No Time Spent Managing Pts Care (In Minutes): 50
[2022-12-25] MEDS ORDERED: POTASSIUM 25 MEQ EFFERV TAB ONE (21:19)
[2022-12-25] MEDS ORDERED: ASPIRIN 81 MG CHEWABLE TABLET ONE (21:19)
[2022-12-25] MEDS ORDERED: ACETAMINOPHEN 500 MG TAB PO PRN (21:20)
[2022-12-25] MEDS ORDERED: ALPRAZOLAM 0.25 MG TABLET PO PRN (21:20)
[2022-12-25] MEDS ORDERED: ONDANSETRON 4 MG/2 ML VIAL IV PRN (21:20)
[2022-12-25] MEDS ORDERED: TRAMADOL HCL 50 MG TAB PO PRN (21:41)
[2022-12-25] MEDS ORDERED: NA CHLORIDE 0.9% 250 ML ONE (22:05)
[2022-12-26 00:24] VITALS: BMI 22.7
[2022-12-26 04:22] LABS: Absolute Lymphocytes (CBC) 0.7 K/uL (0.7-4.9); Hematocrit 21.9 % (39.6-49.0); Lymphocytes % 20.8 % (15.3-44.8); MCV 83.8 fL (80-100); MPV 7.8 fL (7.6-11.3); RBC Red Blood Cell Count 2.61 M/uL (4.33-5.43)
[2022-12-26 04:54] LABS: Potassium 3.8 mEq/L (3.5-5.1); Troponin High Sensitivity 132.6 pg/mL (<58.9)
[2022-12-26 06:03] VITALS: O2SAT 100
--- NOTE | 2022-12-26 08:04 | P.DS ---
Discharge Date: 12/26/22 Disposition: ROUTINE DISCHARGE Discharge Condition: GOOD Reason for Admission: Anemia Consultations: Nephrology Brief History of Present Illness: Patient is a 77-year-old male past medical history end-stage renal disease on hemodialysis Wednesday, COPD, hypertension, ADHD, diabetes type 2 insulin-dependent, presents to the emergency room after being referred from dialysis for anemia. He reports mild associated fatigue, shortness of breath with exertion. He reports fall last vist with Lumbar back pain, prior CT with Lumber fracutre, reports constipation form PRN meds. He denies chest pain, shortness of breath, dizziness, syncope, fever, nausea vomiting diarrhea, no reported hematochezia. Laboratory evaluation CBC hemoglobin 6.7, hematocrit 19.8, platelet count 147, no left shift. CBC mild hyponatremia 134, hypokalemia 3.1, elevated BUN 13 creatinine, 1.92, elevated troponin at 163.8, elevated BNP 30 2345. Patient was admitted to the hospital for his chronic anemia. He has anemia of chronic kidney disease and he needs to follow-up with hematology regularly. Transfuse him 2 units of packed red blood cells and we anticipate discharge after the transfusion. Hospital Course: Done well during hospitalization. Plan is to hemodialyzed patient with 2 units of packed red blood cells. Anticipate discharge home after hemodialysis. Vital Signs/Physical Exam: Temp Pulse Resp BP Pulse Ox 97.5 F 56 18 140/65 98 12/26/22 04:00 12/26/22 04:00 12/26/22 04:00 12/26/22 04:00 12/26/22 04:00 General: Alert, In no apparent distress, Oriented x3 Laboratory Data at Discharge: WBC 3.50 thou/uL (4.3-10.9) L 12/26/22 03:36 Hgb 7.4 g/dL (13.6-17.9) L D 12/26/22 03:36 Hct 21.9 % (39.6-49.0) L 12/26/22 03:36 Plt Count 131 thou/uL (152-406) L 12/26/22 03:36 PT 16.4 SECONDS (9.5-12.5) H 12/25/22 20:02 INR 1.49 12/25/22 20:02 APTT 33.5 SECONDS (24.3-36.9) 12/25/22 20:02 Sodium 136 mEq/L (136-145) 12/26/22 03:36 Potassium 3.8 mEq/L (3.5-5.1) D 12/26/22 03:36 BUN 18 mg/dL (7-18) 12/26/22 03:36 Creatinine 2.28 mg/dL (0.70-1.30) H 12/26/22 03:36 Glucose 210 mg/dL (74-106) H 12/26/22 03:36 Magnesium 2.0 mg/dL (1.6-2.4) 12/26/22 03:36 Home Medications: Atorvastatin Calcium 40 mg PO BEDTIME 09/10/22 Carvedilol [Coreg] 12.5 mg PO BID 09/10/22 Pantoprazole [Protonix Tab*] 40 mg PO DAILY 09/10/22 Aspirin [Aspirin EC 81 MG] 81 mg PO DAILY 11/08/22 Metoprolol Tartrate [Lopressor*] 12.5 mg PO BID 11/08/22 Cyclobenzaprine [Flexeril*] 5 mg PO TIDP PRN 12/26/22 Hydrocodone Bit/Acetaminophen [[place] 7.5-325 Tablet] 1 tab PO BIDP PRN 12/26/22 Polyethylene Glycol 3350 [Miralax] 1 packet PO DAILY 12/26/22 Sennosides/Docusate Sodium [Stool Softener-Stim Lax Tablet] 1 tab PO DAILY 12/26/22 Physician Discharge Instructions: -DC IV and DC home -Follow-up with PCP in 1 to 2 weeks -Follow-up with nephrology for hemodialysis -Follow-up with hematology for anemia -Please call Dr. Ruiz at [phone] if any questions regarding hospital stay -Please call nursing station at [phone] if any nursing or medication questions -Return to the emergency room if symptoms worsen Diet: Renal Activity: Fall precautions Followup: Naveed Fortune DO [Primary Care Provider] - Time spent managing pt's care (in minutes): 35
[2022-12-26] MEDS ORDERED: HEPARIN 5000 UNIT/ML 1 ML VIAL SQ SCH (09:00)
[2022-12-26 12:55] LABS: Hematocrit 25.5 % (39.6-49.0)
[2022-12-26 14:32] VITALS: BP 148/65; TEMP 98.5
--- NOTE | 2022-12-26 14:41 | P.CNS ---
Date of Consult: 12/26/22 Reason for Consult: ESRD , fluid and electrolytes mangement Chief Complaint: Anemia History of Present Illness: HPI A 77 Y/o man with PMHx of ESRD on HD TTSa t, anemia of chronic disease, CHF , COPD , and Pleural effusion pt sent from dialysis center for anemia Hb 6.7 , pt had W/U in the past , he had multiple admission for symptomatic anemia , pt received 1 PRBC today ROS Genreal: weak Head and Neck: No red eye. No ear pain. GI: denied nausea, voimiting or diarrhea : No polyuria. No dysuria. No hematuria. Respiratory: denied shortness of breath.or cough Cardiovascular: No chest pain. or leg swelling. Endocrine: No polydipsia. Skin: No rash. Neuro: Has weakness. Wobbly gait. Musculoskeletal: Generalized fatigue. Physical exam General: Awake, NAD HEENT: Atraumatic, Normocephalic Neck: Supple, no elevated JVD Respiratory: CTAB Cardiovascular: No rubs, No murmurs Gastrointestinal: Soft and benign, Non-distended EXt no edema A/P # End-stage renal disease. Cont HD on Wednesday as an OP # Hypertension. continue current BP medication regimen. # Anemia, status post full workup negative in the past, , status post transfusion today Cont EPogen an op , # Secondary hyperparathyroidism. Continue Renvela. We will follow up phosphorus pT CAN BE DISCHARGED From nephrology point of view To resume HD As an OP on Wednesday Allergies codeine Allergy (Verified 09/29/22 22:59) Hallucinations gabapentin Adverse Reaction (Verified 09/29/22 22:59) Hallucinations Home Medications: Atorvastatin Calcium 40 mg PO BEDTIME 09/10/22 Carvedilol [Coreg] 12.5 mg PO BID 09/10/22 Pantoprazole [Protonix Tab*] 40 mg PO DAILY 09/10/22 Aspirin [Aspirin EC 81 MG] 81 mg PO DAILY 11/08/22 Metoprolol Tartrate [Lopressor*] 12.5 mg PO BID 11/08/22 Cyclobenzaprine [Flexeril*] 5 mg PO TIDP PRN 12/26/22 Hydrocodone Bit/Acetaminophen [[place] 7.5-325 Tablet] 1 tab PO BIDP PRN 12/26/22 Polyethylene Glycol 3350 [Miralax] 1 packet PO DAILY 12/26/22 Sennosides/Docusate Sodium [Stool Softener-Stim Lax Tablet] 1 tab PO DAILY 12/26/22 - Past Medical/Surgical History Diabetic: Yes -: Hypertension -: Hyperlipidemia -: Diabetes type 2, insulin dependent -: End-stage renal disease, hemodialysis-Wednesday, Wednesday, Wednesday -: Diastolic CHF -: COPDon home O2 -: Anemia of chronic disease -: 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 He has 3 children - Family History mother and father Medical History: Hypertension Notes: adopted - Social History Smoking Status: Unknown if ever smoked Alcohol use: No CD- Drugs: No Caffeine use: No Place of Residence: Home Physical Examination Temp Pulse Resp BP Pulse Ox 98.5 F 57 16 148/65 H 99 12/26/22 12:00 12/26/22 12:00 12/26/22 12:00 12/26/22 12:00 12/26/22 12:00 Laboratory Data (last 24 hrs) 12/25/22 12/25/22 12/25/22 20:02 20:02 20:02 WBC 3.40 L Hgb 6.7 L Hct 19.8 L Plt Count 147 L PT 16.4 H INR 1.49 APTT 33.5 Sodium 135 L Potassium 3.1 L BUN 13 Creatinine 1.92 H Glucose 225 H Magnesium 2.3
[2022-12-26] MEDS ORDERED: SENOSIDES 8.6 MG TAB PO SCH (17:00)
[2022-12-26] MEDS ORDERED: DOCUSATE NA/SENNA CONC 1 TAB PO SCH (21:00)
--- NOTE | 2022-12-27 13:14 | EKG ---
Test Date: 2022-12-25 Test Time: 19:48:15 Information Systems Planner: EMILY MEASUREMENT RESULTS: Intervals: Rate: 56 [place]: 198 QRSD: 186 QT: 518 QTc: 499 [place]: P: [place]: 198 QRS: -73 T: 46 INTERPRETIVE STATEMENTS: Sinus bradycardia Left axis deviation Right bundle branch block Anteroseptal infarct, age undetermined Abnormal ECG Compared to ECG 11/15/2022 13:59:05 Left-axis deviation now present Atrial flutter no longer present Myocardial infarct finding still present Electronically Signed On 12-27-22 13:11:55 CDT by Chico Henriquez
== END 2022-12-26 14:32 | disposition home or self-care (01) ==
LOC: ER 17:27 → INTOOBSV 21:12 → 4TH 21:12
PROVIDERS: ADMIT Hospitalist; ATTEND Hospitalist
PROC: 30233N1 Transfusion of Nonautologous Red Blood Cells into Peripheral Vein, Percutaneous Approach (ICD-10-PCS; 2022-12-25)
PROC: 30233N1 Transfusion of Nonautologous Red Blood Cells into Peripheral Vein, Percutaneous Approach (ICD-10-PCS; principal; 2022-12-26)
DX: I12.0 Hypertensive chronic kidney disease with stage 5 chronic kidney disease or end stage renal disease (principal); D63.1 Anemia in chronic kidney disease; N18.6 End stage renal disease; I21.4 Non-ST elevation (NSTEMI) myocardial infarction; E87.70 Fluid overload, unspecified; E87.1 Hypo-osmolality and hyponatremia; E87.6 Hypokalemia; E78.5 Hyperlipidemia, unspecified; M54.50 Low back pain, unspecified; K59.00 Constipation, unspecified; I50.9 Heart failure, unspecified; J44.9 Chronic obstructive pulmonary disease, unspecified; J90 Pleural effusion, not elsewhere classified; E21.3 Hyperparathyroidism, unspecified; E11.9 Type 2 diabetes mellitus without complications; F90.9 Attention-deficit hyperactivity disorder, unspecified type; R06.02 Shortness of breath; R53.83 Other fatigue; Z79.4 Long term (current) use of insulin; Z99.2 Dependence on renal dialysis; Z99.81 Dependence on supplemental oxygen; Z88.6 Allergy status to analgesic agent; Z88.8 Allergy status to other drugs, medicaments and biological substances; Z79.82 Long term (current) use of aspirin
CPT/HCPCS: 36430 ×2; 93005; 85025 ×2; 80048 ×2; 36415; 86900; 83735 ×2; 86850; 82550; 85610; 86901; 85730; 86920 ×2; 85018; 85014; 84484 ×2; 83880 ×2; 71045; 94760; 99284; J1644; P9016 ×2; J7050

== ENCOUNTER 2023-01-06 16:02 | Emergency (ER) | payer OTHER, BC ==
--- OUTSIDE RECORDS SUMMARY | 2023-01-06 16:46 | XMS REPORT | Continuity of Care Document ---
:1945 Author Organization [facility] t Address [address] [facility]. [address] [place] [address] Care Team Providers Name Role Phone LA FORTUNE Primary Care Physician Unavailable La Fortune Attending Clinician Unavailable [id number] Attending Clinician Unavailable RONNIE AYALA Attending Clinician [...] Velazquez Attending Clinician Pepper Crawford Attending Clinician [phone] PEPPER CRAWFORD Attending Clinician Unavailable MONSE VELAZQUEZ Attending Clinician Unavailable CHILANGO ARMSTRONG NATASHA Attending Clinician Unavailable [id number] Admitting Clinician Unavailable RONNIE AYALA Admitting Clinician Unavailable MINE MOSQUEDA Admitting Clinician Unavailable Mine Mosqueda DO Admitting Clinician ZACHARY BRUNO Admitting Clinician Unavailable Zachary Bruno Admitting Clinician Monse Velazquez Admitting Clinician [phone] MONSE VELAZQUEZ Admitting Clinician Unavailable CHILANGO ARMSTRONG NATASHA Admitting Clinician Unavailable Payers Payer Name Policy Type Policy Effective Date Expiration Date Sour ce Number MEDICARE PART A [id number] 2011 AND B 00:00:00 MEDICARE PART A [id number] 2010 \\T\\ B 00:00:00 BCBS TRADITIONAL [id number] 2014 00:00:00 [employer] Blue 6 [id number] 2014 [facility] 00:00:00 - [facility] [id number] BCTX BCTI [id number] MEDICARE NOVITAS [id number] 2011 [facility] 00:00:00 - [facility] MEDICARE NOVITAS [id number] 2011 [facility] 00:00:00 - [facility] MEDICARE NOVITAS [id number] 2011 [facility] 00:00:00 [facility] Problems Condition Condition Condition Status [...] it y of on on 00:00: [place] [facility] Branch Syncope Syncope Disease Active Univers 5-14 ity of 00:00: [place] [address] Medical Branch Anemia Anemia Disease Active Univers associated associated 5-14 it y of with with 00:00: [place] nutritiona nutritiona 00 Me dical l Branch deficiency deficiency Dyslipidem Dyslipidem Disease Active U nivers ia ia 5-14 ity of 00:00: [place] [facility] Bifascicul Bifascicul Disease Active U nivers ar block ar block 5-14 ity of 00:00: [place] [facility] Atrial Atrial Disease Active Univers flutter flutter 5-14 ity of 00:00: [place] [facility] Branch Encephalop Encephalop Disease Active U nivers athy athy 5-14 ity of 00:00: [place] [facility] Hypoglycem Hypoglycem Disease Active U nivers ia ia 5-13 ity of 00:00: [place] [address] Medical Branch LOW LOW Diagnosis Active 2022-01-02 Mem oria HEMOGLOBIN HEMOGLOBIN 01-02 12:51:00 l COUNT/ COUNT/ 00:00: [place] NEEDING NEEDING 00 DIALYZED DIALYZED Active 01/02/2022 [facility] PNA DUE TO PNA DUE Diagnosis Active 2022-08-31 Memoria COVID-19 TO 12-14 21:48:00 l VIRUS COVID-19 00:00: [place] VIRUS 00 Active 12/14/2021 [facility] [place] DIFFICULTY Diagnosis Active 2021-12-14 Memoria BREATHING DIFFICULTY 12-14 17:56:00 l BREATHING 00:00: [place] Active 00 12/14/2021 [facility] ABNORNAL ABNORNAL Diagnosis Active 2021-12-16 Memoria LAB LAB Active 12-03 05:50:00 l 08:00: [place] n 2 [facility] 00 [place] ANEMIA, ANEMIA, Diagnosis Active 2021-12-16 Memoria COVID-19 COVID-19 11-24 05:50:00 l Active 00:00: [place] 11/24/2021 [facility] [place] LOW LOW Diagnosis Active 2021-11-24 Mem oria HEMOGOBLIN HEMOGOBLIN 11-24 23:20:00 l Active 00:00: [place] 11/24/2021 [facility] Cellulitis Cellulitis Disease Active U nivers of right of right 12-29 ity of leg leg 00:00: [address] [id number] Other Problem Common obesity Spirit due to - [facility] excess [facility] [id number] Metabolic Problem Com mon syndrome Spirit - [facility] [id number] Body mass Problem Com mon index Spirit [BMI] - [facility] 30.0-30.9, [facility] [id number] Frailty Problem Commo n syndrome Spirit in - [facility] geriatric [facility] 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 - [facility] , single major St episode depressive General acute hospital Center prior episode 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 - [facility] Chronic Chronic Problem Common systolic systolic Spirit heart congestive - [facility] failure heart [facility] [id number] 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 - [facility] [id number] GERD Problem Common without Spirit esophagiti - [facility] s [facility] [id number] Type 2 Problem Common diabetes Spirit mellitus - [facility] with [facility] [id number] Mixed Problem Common hyperlipid Spirit emia - [facility] [id number] Noncomplia Problem Co mmon nce of Spirit patient - [facility] with [facility] Chronic +5th digit Problem Comm on atrial eff Spirit fibrillati 02/28/19*Ch - [facility] on ronic St (disorder[facility] [id number] 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 COPD Center type [id number] Heart Problem Common failure, Spirit congestive - [facility] , etiology [facility] [id number] Constipati Problem Com mon on, Spirit unspecifie - CHI d St constipati [facility] on [facility] Medical Merigold [id number] Memory Problem Common impairment Spirit of gradual - [facility] onset [facility] [id number] HTN, goal Problem Comm on below Spirit 130/80 - [facility] [id number] Anemia of Problem Com mon chronic Spirit disease - [facility] [id number] MCFP Problem Com mon (current) Spirit use of - [facility] insulin [facility] [id number] Benign Problem Common prostatic Spirit hyperplasi - [facility]I a without [facility] urinary Medical tract Center symptoms Hypertroph Obstructiv Problem C ommon ic e Spirit 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 [facility] Hypertensi Hypertensi Problem C ommon ve heart ve chronic Spir it AND kidney - CHI chronic disease kidney with stage [facility] disease 5 chronic Medica l [...] 12-04 21:45:40 21:45:40 l d d 06:34: [place] 12/04/2021 00 12/06/2021 Apolonia Allergies, Adverse Reactions, [...] Active Unknown Commo n in in Spirit [facility] codeine codeine Active Unknown [facility] codeine codeine Active Memoria l [place] gabapent gabapent Active Memori a in in l [place] Social History Social Habit Start Date Stop Date Quantity Comments Source History of tobacco Cigarette Smoker University of use [place] [facility] History SDOH University o f Alcohol Std Drinks [place] [facility] History SDOH University o f Alcohol Binge [place] [facility] al Branch History SDOH Social Unive rsity of Connections [facility] Med ical Together Branch History SDOH Social Unive rsity of Connections [facility] Medical Branch History SDOH Social Unive rsity of Connections [place] [facility] Membership Branch History SDOH Social Unive rsity of Connections [place] [facility] Meetings Branch Alcohol intake 2022-10-31 2022-10-31 Ex-drinker University of 00:00:00 00:00:00 (finding) [place] [facility] History SDOH 2022-10-12 2022-10-12 1 University o f Alcohol Frequency 00:00:00 00:00:00 [facility] edical Branch History SDOH Social 2022-10-12 2022-10-12 5 Unive rsity of Connections Phone 00:00:00 00:00:00 [facility] edical Branch History SDOH Social 2022-10-12 2022-10-12 [...] 00:00:00 [place] Medi yahaira Lived Branch History SDOK 2022-10-12 2022-10-12 2 University o f Housing Homeless 00:00:00 00:00:00 [place] Me dical Last Year Branch Tobacco use and 2022-10-11 2022-10-11 Smokeless Universit y of exposure 00:00:00 00:00:00 tobacco non-user [place] Me dical Branch Tobacco Comment 2022-10-11 2022-10-11 pt has not Universit y of 00:00:00 00:00:00 smoked sice age [place] Med ical 19 Branch Exposure to 2022-09-30 2022-10-10 Not sure University of SARS-CoV-2 (event) 00:00:00 13:56:00 [facility] Sex [birth year] Universit y of 00:00:00 00:00:00 [facility] Smoking Status Start Date Stop Date Source Social History 2021-12-04 02:37:37 2021-12-04 02:37:37 [facility] Medications Ordered Filled Start Stop Current Ordering Indication Dosage Frequency Signature Comments Components Source Medication Medication Date Date Medication? Clinician (SIG) Name Name aspirin 81 Yes [id number] 81mg Take 1 Univers mg EC 5-19 tablet by ity of tablet 00:00: mouth in [place] 00 the Medical morning. Branch aspirin 81 Yes [id number] 81mg Take 1 Univers mg EC 5-19 tablet by ity of tablet 00:00: mouth in [place] 00 the Medical morning. Branch aspirin 81 0 Yes [id number] 81mg Take 1 Univers mg EC 5-19 tablet by ity of tablet 00:00: mouth in [place] 00 the Medical morning. Branch citalopram Yes 20mg Take 1 Unive rs 20 mg 5-18 tablet by ity of tablet 14:40: mouth in [place] [address] the Medical morning. Branch atorvastati Yes 40mg Take 40 mg Univers n (LIPITOR) 5-18 by mouth ity of 40 mg 14:40: at [place] [address] bedtime. Medical Branch MULTIVITAMI Yes 1{tbl} Take 1 Tab Univers NS WITH 5-18 by mouth ity of EXTRA C 14:40: daily. [place] [address] Medical Branch citalopram Yes 20mg Take 1 Unive rs 20 mg 5-18 tablet by ity of tablet 14:40: mouth in [place] [address] the Medical morning. Branch atorvastati Yes 40mg Take 40 mg Univers n (LIPITOR) 5-18 by mouth ity of 40 mg 14:40: at [facility] 23 bedtime. Medical Branch MULTIVITAMI Yes 1{tbl} Take 1 Tab Univers NS WITH 5-18 by mouth ity of EXTRA C 14:40: daily. [address] Branch citalopram Yes 20mg Take 1 [...] skin every Medica l SOLOSTAR morning. Branch IA) carvediloL Yes [id number] 6.25mg Take 1 Univers 6.25 mg 5-18 tablet by ity of tablet 00:00: mouth in [place] 00 the Medical morning Branch and 1 tablet in the evening. Take with meals. pantoprazol Yes [id number] 40mg Take 1 Univers e 40 mg EC 5-18 tablet by ity of tablet 00:00: mouth in [place] 00 the Medical morning. Branch carvediloL 2023-0 Yes [id number] 6.25mg Take 1 Univers 6.25 mg 5-18 tablet by ity of tablet 00:00: mouth in [place] the morning Branch and 1 tablet in the evening. Take with meals. pantoprazol Yes [id number] 40mg Take 1 Univers e 40 mg EC 5-18 tablet by ity of tablet 00:00: mouth in [place] the morning. Branch carvediloL 0 Yes [id number] 6.25mg Take 1 Univers 6.25 mg 5-18 tablet by ity of tablet 00:00: mouth in [place] the morning Branch and 1 tablet in the evening. Take with meals. pantoprazol Yes [id number] 40mg Take 1 Univers e 40 mg EC 5-18 tablet by ity of tablet 00:00: mouth in [place] the morning. Branch amoxicillin 2022- Yes [id number] 500mg Take 1 Univers -pot 5-18 05-26 tablet by ity of clavulanate 00:00: 04:59 [place] 500 mg 00 :00 every 24 Medical (AUGMENTIN) (twenty-fo Br anch 500-125 mg ur) hours tablet for 7 days. amoxicillin 2022- Yes [id number] 500mg Take 1 Univers -pot 5-18 05-26 [...] Medic al VIAL-MATE dose, On Branch IV [facility] piggyback 10/12/22 at 1600, Administer over 90 Minutes, 250 mL
Reas on for Anti-Infec tive: Documented Infection< br>Documen swathi Infection Site: Blood<br&g t;Duration of Therapy: 7 days methocarbam 2022-0 Yes 750mg 750 mg, Un arnie oL 5-15 Oral, ity of (ROBAXIN) 13:06: TIDPRN, [place] tablet 750 58 Starting Medic al mg on [facility] 10/12/22 at 0806, Until Discontinu ed, Routine, Muscle Spasms atorvastati 0 Yes 40mg 40 mg, Univ ers n (LIPITOR) 5-15 Oral, QHS, it y of tablet 40 02:00: First dose [place] mg 00 on [facility] 10/11/22 at Branch 2100, Until Discontinu ed, Routine docusate 0 Yes 100mg 100 mg, Unive rs (COLACE) 5-15 Oral, BID, ity o f capsule 100 01:30: First dose [place] mg 00 on [facility] 10/11/22 at Branch 2030, Until Discontinu ed, Routine aspirin EC 0 Yes 81mg 81 mg, Unive rs tablet 81 5-14 Oral, ity of mg 14:00: DAILY, [place] 00 First dose Medical on [facility] 10/11/22 at 0900, Until Discontinu ed, Routine pantoprazol 0 Yes 40mg 40 mg, Univ ers e 5-14 Oral, ity of (PROTONIX) 14:00: DAILY, [place] EC tablet 00 First dose Medi yahaira 40 mg on [facility] 10/11/22 at 0900, Until Discontinu ed, Routine citalopram 0 Yes 20mg 20 mg, Unive rs (CELEXA) 5-14 Oral, ity of tablet 20 14:00: DAILY, [place] mg 00 First dose Medical on [facility] 10/11/22 at 0900, Until Discontinu ed, [...] l 14:00: Retacrit) [place] 00 epoetin shannon-epbx 29825 unit/1 ml VL. For dialysis use only. WASTE: F/P - Red; E Red MEDICATION WASTE Product Size: 08406 unit Product Wasted: ___ unit aspirin No Notes: Do Memor ia 7-20 not crush l 14:00: or chew. [place] 00 (Same As: Ecotrin) Procardia No Notes: Memori a XL 30 mg 7-20 (Same as: l oral 14:00: Adalat CC, [place] tablet, 00 Procardia extended XL) Give release on empty stomach. Take 1 hour before or 2 hours after meal; "Avoid grapefruit and grapefruit juice". Do not crush Epogen No Notes: Memoria (ESRD) 7-20 Same as: l 14:00: Retacrit) [place] 00 epoetin shannon-epbx 97077 unit/1 ml VL. For dialysis use only. WASTE: F/P - Red; E Red MEDICATION WASTE Product Size: 12420 unit Product Wasted: ___ unit aspirin No Notes: Do Memor ia 7-20 not crush l 14:00: or chew. [place] 00 (Same As: Ecotrin) Procardia No Notes: Memori a XL 30 mg 7-20 (Same as: l oral 14:00: Adalat CC, [place] tablet, 00 Procardia extended XL) Give release on empty stomach. Take 1 hour before or 2 hours after meal; "Avoid grapefruit and grapefruit juice". Do not crush Epogen No Notes: Memoria (ESRD) 7-20 Same as: l 14:00: Retacrit) [place] 00 epoetin shannon-epbx 07289 unit/1 ml VL. For dialysis use only. WASTE: F/P - Red; E Red MEDICATION WASTE Product Size: 93446 unit Product Wasted: ___ unit aspirin No [...] l 14:00: Retacrit) [place] 00 epoetin shannon-epbx 20056 unit/1 ml VL. For dialysis use only. WASTE: F/P - Red; E Red MEDICATION WASTE Product Size: 67478 unit Product Wasted: ___ unit aspirin No Notes: Do Memor ia 7-20 not crush l 14:00: or chew. [place] 00 (Same As: Ecotrin) Procardia No Notes: Memori a XL 30 mg 7-20 (Same as: l oral 14:00: Adalat CC, [place] tablet, 00 Procardia extended XL) Give release on empty stomach. Take 1 hour before or 2 hours after meal; "Avoid grapefruit and grapefruit juice". Do not crush Epogen No Notes: Memoria (ESRD) 7-20 Same as: l 14:00: Retacrit) [place] epoetin shannon-epbx 93417 unit/1 ml VL. For dialysis use only. WASTE: F/P - Red; E Red MEDICATION WASTE Product Size: 29463 unit Product Wasted: ___ unit aspirin No Notes: Do Memor ia 7-20 not crush l 14:00: or chew. [place] (Same As: Ecotrin) Procardia No Notes: Memori a XL 30 mg 7-20 (Same as: l oral 14:00: Adalat CC, [place] tablet, 00 Procardia extended XL) Give release on empty stomach. Take 1 hour before or 2 hours after meal; "Avoid grapefruit and grapefruit juice". Do not crush Epogen No Notes: Memoria (ESRD) 7-20 Same as: l 14:00: Retacrit) [place] 00 epoetin shannon-epbx 45514 unit/1 ml VL. For dialysis use only. WASTE: F/P - Red; E Red MEDICATION WASTE Product Size: 78032 unit Product Wasted: ___ unit aspirin No Notes: Do Memor ia 7-20 not crush l 14:00: or chew. [place] (Same As: Ecotrin) Procardia No Notes: Memori a XL 30 mg 7-20 (Same as: l oral 14:00: Adalat CC, [place] tablet, 00 Procardia extended XL) Give release on empty stomach. Take 1 hour before or 2 hours after meal; "Avoid grapefruit and grapefruit juice". Do not crush Epogen No Notes: Memoria (ESRD) 7-20 Same as: l 14:00: Retacrit) [place] 00 epoetin shannon-epbx 65893 unit/1 ml VL. For dialysis use only. WASTE: F/P - Red; E Red MEDICATION WASTE Product Size: 70872 unit Product Wasted: ___ unit aspirin No Notes: Do Memor ia 7-20 not crush l 14:00: or chew. [place] 00 (Same As: Ecotrin) Procardia No Notes: Memori a XL 30 mg 7-20 (Same as: l oral 14:00: Adalat CC, [place] tablet, 00 Procardia extended XL) Give release on empty stomach. Take 1 hour before or 2 hours after meal; "Avoid grapefruit and grapefruit juice". Do not crush Epogen No Notes: Memoria (ESRD) 7-20 Same as: l 14:00: Retacrit) [place] 00 epoetin shannon-epbx 35943 unit/1 ml VL. For dialysis use only. WASTE: F/P - Red; E Red MEDICATION WASTE Product Size: 33779 unit Product Wasted: ___ unit aspirin No [...] (ESRD) 7-20 Same as: l 14:00: Retacrit) [place] 00 epoetin shannon-epbx 05781 unit/1 ml VL. For dialysis use only. WASTE: F/P - Red; E Red MEDICATION WASTE Product Size: 77237 unit Product Wasted: ___ unit aspirin No Notes: Do Memor ia 7-20 not crush l 14:00: or chew. [place] 00 (Same As: Ecotrin) Procardia No Notes: Memori a XL 30 mg 7-20 (Same as: l oral 14:00: Adalat CC, [place] tablet, 00 Procardia extended XL) Give release on empty stomach. Take 1 hour before or 2 hours after meal; "Avoid grapefruit and grapefruit juice". Do not crush Epogen No Notes: Memoria (ESRD) 7-20 Same as: l 14:00: Retacrit) [place] 00 epoetin shannon-epbx 13436 unit/1 ml VL. For dialysis use only. WASTE: F/P - Red; E Red MEDICATION WASTE Product Size: 27328 unit Product Wasted: ___ unit aspirin No [...] l 14:00: Retacrit) [place] 00 epoetin shannon-epbx 62804 unit/1 ml VL. For dialysis use only. WASTE: F/P - Red; E Red MEDICATION WASTE Product Size: 26617 unit Product Wasted: ___ unit Lipitor No Notes: Memoria 7-20 (Same as: l 02:00: Lipitor) [place] Lipitor No Notes: Memoria 7-20 (Same as: l 02:00: Lipitor) [place] Lipitor No Notes: Memoria 7-20 (Same as: l 02:00: Lipitor) [place] Lipitor No Notes: Memoria 7-20 (Same as: l 02:00: Lipitor) [place] 00 Lipitor No Notes: Memoria 7-20 (Same as: l 02:00: Lipitor) [place] 00 Lipitor No Notes: Memoria 7-20 (Same as: l 02:00: Lipitor) [place] 00 Lipitor No Notes: Memoria 7-20 (Same [...] l capsule 22:00: Omnicef) [place] n cefdinir 0 No Notes: Memoria 300 mg oral 7-19 (Same As: l capsule 22:00: Omnicef) [place] cefdinir 0 No Notes: Memoria 300 mg oral 7-19 (Same As: l capsule 22:00: Omnicef) [place] cefdinir 0 No Notes: Memoria 300 mg oral 7-19 (Same As: l capsule 22:00: Omnicef) [place] n 00 cefdinir 0 No Notes: Memoria 300 mg oral 7-19 [...] day, # 3 tab, 0 Refill(s), Pharmacy: [id number], 177.8, cm, 12/14/21 22:03:00 CDT, Height, 95.2, kg, 12/14/21 22:03:00 CDT, Weight dexamethaso 2021-0 Yes 6 mg = 1 Me moria ne 6 mg 7-19 tab, PO, l oral tablet 21:19: Daily, X 3 [place] 00 day, # 3 tab, 0 Refill(s), Pharmacy: [id number], 177.8, cm, 12/14/21 22:03:00 CDT, Height, 95.2, kg, 12/14/21 22:03:00 CDT, Weight dexamethaso 2021-0 Yes 6 mg = 1 Me moria ne 6 mg 7-19 tab, PO, l oral tablet 21:19: Daily, X 3 [place] 00 day, # 3 tab, 0 Refill(s), Pharmacy: [id number], 177.8, cm, 12/14/21 22:03:00 CDT, Height, 95.2, kg, 12/14/21 22:03:00 CDT, Weight dexamethaso 2021-0 Yes 6 mg = 1 Me moria ne 6 mg 7-19 tab, PO, l oral tablet 21:19: Daily, X 3 [place] 00 day, # 3 tab, 0 Refill(s), Pharmacy: [id number], 177.8, cm, 12/14/21 22:03:00 CDT, Height, 95.2, kg, 12/14/21 22:03:00 CDT, Weight dexamethaso 2022-0 Yes 6 mg = 1 Me moria ne 6 mg 7-19 tab, PO, l oral tablet 21:19: Daily, X 3 [place] 00 day, # 3 tab, 0 Refill(s), Pharmacy: [id number], 177.8, cm, 12/14/21 22:03:00 CDT, Height, 95.2, kg, 12/14/21 22:03:00 CDT, Weight dexamethaso 2022-0 Yes 6 mg = 1 Me moria ne 6 mg 7-19 tab, PO, l oral tablet 21:19: Daily, X 3 [place] 00 day, # 3 tab, 0 Refill(s), Pharmacy: [id number], 177.8, cm, 12/14/21 22:03:00 CDT, Height, 95.2, kg, 12/14/21 22:03:00 CDT, Weight dexamethaso 2022-0 Yes 6 mg = 1 Me moria ne 6 mg 7-19 tab, PO, l oral tablet 21:19: Daily, X 3 [place] 00 day, # 3 tab, 0 Refill(s), Pharmacy: [id number], 177.8, cm, 12/14/21 22:03:00 CDT, Height, 95.2, kg, 12/14/21 22:03:00 CDT, Weight dexamethaso 2022-0 Yes 6 mg = 1 Me moria ne 6 mg 7-19 tab, PO, l oral tablet 21:19: Daily, X 3 [place] 00 day, # 3 tab, 0 Refill(s), Pharmacy: [id number], 177.8, cm, 12/14/21 22:03:00 CDT, Height, 95.2, kg, 12/14/21 22:03:00 CDT, Weight dexamethaso 2022-0 Yes 6 mg = 1 Me moria ne 6 mg 7-19 tab, PO, l oral tablet 21:19: Daily, X 3 [place] 00 day, # 3 tab, 0 Refill(s), Pharmacy: [id number], 177.8, cm, 12/14/21 22:03:00 CDT, Height, 95.2, kg, 12/14/21 22:03:00 CDT, Weight dexamethaso 2022-0 Yes 6 mg = 1 Me moria ne 6 mg 7-19 tab, PO, l oral tablet 21:19: Daily, X 3 [place] 00 day, # 3 tab, 0 Refill(s), Pharmacy: [id number], 177.8, cm, 12/14/21 22:03:00 CDT, Height, 95.2, kg, 12/14/21 22:03:00 CDT, Weight dexamethaso 2-0 Yes 6 mg = 1 Me moria ne 6 mg 7-19 tab, PO, l oral tablet 21:19: Daily, X 3 [place] day, # 3 tab, 0 Refill(s), Pharmacy: [id number], 177.8, cm, 12/14/21 22:03:00 CDT, Height, [...] 7-19 tab, PO, l tablet 20:29: Bedtime, [place] 00 PRN for insomnia, # 14 tab, [...] 7-19 tab, PO, l tablet 20:29: Bedtime, [place] 00 PRN for insomnia, # 14 tab, [...] l oral tablet 20:27: Q12H, # 60 [place] 00 tab, 0 Refill(s) bisacodyl 5 Yes 10 mg = 2 M emoria mg oral 7-19 tab, PO, l enteric 20:27: Daily, PRN Herm silas coated 00 Constipati tablet on, # 20 tab, 0 Refill(s) carvedilol Yes 12.5 mg = Me moria 12.5 mg 7-19 1 tab, PO, l oral tablet 20:27: Q12H, # 60 [place] 00 tab, 0 Refill(s) bisacodyl 5 Yes [...] l oral tablet 20:27: Q12H, # 60 [place] 00 tab, 0 Refill(s) bisacodyl 5 2021-0 [...] l oral tablet 20:27: Q12H, # 60 [place] 00 tab, 0 Refill(s) bisacodyl 5 Yes [...] l oral tablet 20:27: Q12H, # 60 [place] 00 tab, 0 Refill(s) bisacodyl 5 2021-0 Yes 10 mg = 2 M emoria mg oral 7-19 tab, PO, l enteric 20:27: Daily, PRN Herm silas coated 00 Constipati tablet on, # 20 tab, 0 Refill(s) carvedilol Yes 12.5 mg = Me moria 12.5 mg 7-19 1 tab, PO, l oral tablet 20:27: Q12H, # 60 [place] 00 tab, 0 Refill(s) bisacodyl 5 Yes [...] [place] 00 tab, 0 Refill(s) aspirin 81 Yes [...] hours after meals. (Same As: Zithromax) azithromyci 2022-0 No Notes: Heath bobo n 250 mg [...] Same as: l 13:00: Renvela [place] sevelamer 0 No Notes: Memori a 7-19 Same as: l 13:00: Renvela [place] sevelamer 0 No Notes: Memori a 7-19 Same as: l 13:00: Renvela [place] sevelamer 0 No Notes: Memori a 7-19 Same as: l 13:00: Renvela [place] sevelamer 0 No Notes: Memori a 7-19 Same as: l 13:00: Renvela [place] sevelamer 0 No Notes: Memori a 7-19 Same as: l 13:00: Renvela [place] sevelamer 0 No Notes: Memori a 7-19 Same as: l 13:00: Renvela [place] 00 sevelamer 0 No Notes: Memori a 7-19 Same as: l 13:00: Renvela [place] sevelamer 0 No Notes: Memori a 7-19 Same as: l 13:00: Renvela [place] sevelamer No Notes: Anup a 12-16 Same as: l 13:00: Renvela [place] sevelamer No Notes: Anup a 12-16 Same as: l 13:00: Renvela [place] albumin Yes Notes: Lot Heath mercado 25% 12-16 #: l intravenous 02:33: [place] solution ___ Mfg: (Same as: Plasbumin- 25) "blood product derivative " WASTE: F/P - Red; E -Red MEDICATION WASTE Product Size: 25 gm Product Wasted: ___ gm albumin Yes Notes: Na mercado 25% 12-16 #: l intravenous 02:33: [place] solution ___ Mfg: (Same as: Plasbumin- 25) "blood product derivative " WASTE: F/P - Red; E -Red MEDICATION WASTE Product Size: 25 gm Product Wasted: ___ gm albumin Yes Notes: Na mercado 25% 12-16 #: l intravenous 02:33: [place] solution ___ Mfg: (Same as: Plasbumin- 25) [...] mercado 25% 12-16 #: l intravenous 02:33: [place] solution ___ Mfg: (Same as: Plasbumin- 25) [...] albumin Yes Notes: Lot Heath mercado 25% 719 #: l intravenous 02:33: [place] solution 00 ___ Mfg: (Same as: Plasbumin- [...] ne 7-18 Give with l 14:00: food. [place] dexamethaso No Notes: Heath bobo ne 7-18 Give with l 14:00: food. [place] 00 dexamethaso No Notes: Heath bobo ne 7-18 Give with l 14:00: food. [place] 00 albuterol-i No Notes: Heath bobo pratropium [...] pratropium 7-18 Same as: l 13:00: Combivent [place] 00 Respimat WASTE: Aerosol - Return to Pharmacy albuterol-i No Notes: Heath bobo pratropium 7-18 Same as: l 13:00: Combivent [place] 00 Respimat WASTE: Aerosol - Return to Pharmacy albuterol-i 0 No Notes: Heath bobo pratropium 7-18 Same as: l 13:00: Combivent [place] 00 Respimat WASTE: Aerosol - Return to Pharmacy albuterol-i No Notes: Heath bobo pratropium 7-18 Same as: l 13:00: Combivent [place] Respimat WASTE: Aerosol - Return to Pharmacy albuterol-i No Notes: Heath bobo pratropium 7-18 Same as: l 13:00: Combivent [place] Respimat WASTE: Aerosol - Return to Pharmacy albuterol-i No Notes: Heath bobo pratropium 7-18 Same as: l 13:00: Combivent [place] Respimat WASTE: Aerosol - Return to Pharmacy heparin 0 No 5,000 [facility] 7-18 unit, l 05:00: Route: [place] 00 SUB-Q, Q8H, Dosing Weight 95.455, kg, Start date: 12/15/21 0:00:00 CDT, Stop date: 01/13/22 16:00:00 CDT heparin 2021-0 No 5,000 [facility] 7-18 unit, l 05:00: Route: [place] 00 SUB-Q, Q8H, Dosing Weight 95.455, kg, Start date: 12/15/21 0:00:00 CDT, Stop date: 01/13/22 16:00:00 CDT heparin 2021-0 No 5,000 [facility] 7-18 unit, l 05:00: Route: [place] 00 SUB-Q, Q8H, Dosing Weight 95.455, kg, Start date: 12/15/21 0:00:00 CDT, Stop date: 01/13/22 16:00:00 CDT heparin 2021-0 No 5,000 [facility] 7-18 unit, l 05:00: Route: [place] 00 SUB-Q, Q8H, Dosing Weight 95.455, kg, Start date: 12/15/21 0:00:00 CDT, Stop date: 01/13/22 16:00:00 CDT heparin 2021-0 No 5,000 [facility] 7-18 unit, l 05:00: Route: [place] 00 SUB-Q, Q8H, Dosing Weight 95.455, kg, Start date: 12/15/21 0:00:00 CDT, Stop date: 01/13/22 16:00:00 CDT heparin 2021-0 No 5,000 [facility] 7-18 unit, l 05:00: Route: [place] 00 SUB-Q, Q8H, Dosing Weight 95.455, kg, [...] 5,000 [facility] 7-18 unit, l 05:00: Route: [place] 00 SUB-Q, Q8H, Dosing Weight 95.455, kg, Start date: 12/15/21 0:00:00 CDT, Stop date: 01/13/22 16:00:00 CDT heparin 2-0 No 5,000 [facility] 7-18 unit, l 05:00: Route: [place] 00 SUB-Q, Q8H, Dosing Weight 95.455, kg, Start date: 12/15/21 0:00:00 CDT, Stop date: 01/13/22 16:00:00 CDT heparin 2022-0 No 5,000 [facility] 7-18 unit, l 05:00: Route: [place] 00 SUB-Q, Q8H, Dosing Weight 95.455, kg, Start date: 12/15/21 0:00:00 CDT, Stop date: 01/13/22 16:00:00 CDT heparin 2022-0 No Notes: [facility] 7-18 porcine l 02:00: heparin [place] heparin 2-0 No Notes: [facility] 7-18 porcine l 02:00: heparin [place] heparin 2-0 No Notes: [facility] 7-18 porcine l 02:00: heparin [place] heparin 2-0 No Notes: [facility] 7-18 porcine l 02:00: heparin [place] 00 heparin No Notes: [facility] 7-18 porcine l 02:00: heparin [place] 00 heparin No Notes: [facility] 7-18 porcine l 02:00: heparin [place] 00 heparin No Notes: [facility] 7-18 porcine l 02:00: heparin [place] 00 heparin No Notes: [facility] 7-18 porcine l 02:00: heparin [place] 00 heparin No Notes: [facility] 7-18 porcine l 02:00: heparin [place] 00 heparin No Notes: [facility] 7-18 porcine l 02:00: heparin [place] 00 heparin No Notes: [facility] 7-18 porcine l 02:00: heparin [place] 00 albuterol-i No Notes: Heath bobo pratropium [...] IV 250 00 IV) mL cefepime + 2-0 No Notes: [facility] Sodium 7-18 (Same [...] 1000 mg Product Wasted: ___ mg Dextrose 2021-0 No 125 mL, [facility] a 10% in 12-14 Rate: 999 l Water IV 23:57: ml/hr, [place] 00 Infuse over: 0.1 hr, Route: IV, [...] Rate: 999 l Water IV 23:57: ml/hr, [place] Infuse over: 0.1 hr, Route: IV, Total [...] Rate: 999 l Water IV 23:57: ml/hr, [place] 00 Infuse over: 0.1 hr, Route: IV, Total Volume: 125, Start date: 12/14/21 18:57:00 CDT, Duration: 30 day, Stop date: 01/13/22 18:56:00 CDT, PRN Blood Glucose Results, 0 Dextrose 2022-0 No 125 mL, Mem[facility] a 10% in 12-14 Rate: 999 l Water IV 23:57: ml/hr, [place] 00 Infuse over: 0.1 hr, Route: IV, [...] Rate: 999 l Water IV 23:57: ml/hr, [place] 00 Infuse over: 0.1 hr, Route: IV, Total Volume: 125, Start date: 12/14/21 18:57:00 CDT, Duration: 30 day, Stop date: 01/13/22 18:56:00 CDT, PRN Blood Glucose Results, 0 Dextrose 2022-0 No 125 mL, [facility] a 10% in 12-14 Rate: 999 l Water IV 23:57: ml/hr, [place] 00 Infuse over: 0.1 hr, Route: IV, Total Volume: 125, Start date: 12/14/21 18:57:00 CDT, Duration: 30 day, Stop date: 01/13/22 18:56:00 CDT, PRN Blood Glucose Results, 0 Dextrose 2-0 No 125 mL, [facility] a 10% in 12-14 Rate: 999 l Water IV 23:57: ml/hr, [place] 00 Infuse over: 0.1 hr, Route: IV, [...] Rate: 999 l Water IV 23:53: ml/hr, [place] 00 Infuse over: 0.3 hr, Route: IV, [...] Rate: 999 l Water IV 23:53: ml/hr, [place] 00 Infuse over: 0.3 hr, Route: IV, [...] Rate: 999 l Water IV 23:53: ml/hr, [place] 00 Infuse over: 0.3 hr, Route: IV, Total Volume: 250, Start date: 12/14/21 18:53:00 CDT, Duration: 30 day, Stop date: 01/13/22 18:52:00 CDT, PRN Blood Glucose Results, 0 Dextrose 2021-0 No 250 mL, [facility] a 10% in 12-14 Rate: 999 l Water IV 23:53: ml/hr, [place] 00 Infuse over: 0.3 hr, Route: IV, [...] Rate: 999 l Water IV 23:53: ml/hr, [place] 00 Infuse over: 0.3 hr, Route: IV, Total Volume: 250, Start date: 12/14/21 18:53:00 CDT, Duration: 30 day, Stop date: 01/13/22 18:52:00 CDT, PRN Blood Glucose Results, 0 [facility] Vancomycin l Dosing 23:36: Pharmacy [place] Consult 47 Dosing Protocol PHARMAC Y USE ONLY Note: This is not a medication order. This is a consultati on order. Vancomycin No [facility] Vancomycin l Dosing 23:36: Pharmacy [place] Consult 47 Dosing Protocol PHARMAC Y USE ONLY Note: This is not a medication order. This is a consultati on order. Vancomycin No [facility] Vancomycin l Dosing 23:36: Pharmacy [place] Consult 47 Dosing Protocol PHARMAC Y USE ONLY Note: This is not a medication order. This is a consultati on order. Vancomycin No Notes: [facility] 12[facility] Vancomycin l Dosing 23:36: Pharmacy [place] Consult 47 Dosing Protocol PHARMAC Y USE ONLY Note: This is not a medication order. This is a consultati on order. Vancomycin No [facility] Vancomycin l Dosing 23:36: Pharmacy [place] Consult 47 Dosing Protocol PHARMAC Y USE ONLY Note: This is not a medication order. This is a consultati on order. Vancomycin No [facility] Vancomycin l Dosing 23:36: Pharmacy [place] Consult 47 Dosing Protocol PHARMAC Y USE ONLY Note: This is not a medication order. This is a consultati on order. Vancomycin No [facility] Vancomycin l Dosing 23:36: Pharmacy [place] Consult 47 Dosing Protocol PHARMAC Y USE ONLY Note: This is not a medication order. This is a consultati on order. Vancomycin No [facility] Vancomycin l Dosing 23:36: Pharmacy [place] Consult 47 Dosing Protocol PHARMAC Y USE ONLY Note: This is not a medication order. This is a consultati on order. Vancomycin No [facility] Vancomycin l Dosing 23:36: Pharmacy [place] Consult 47 Dosing Protocol PHARMAC Y USE ONLY Note: This is not a medication order. This is a consultati on order. Vancomycin No [facility] Vancomycin l Dosing 23:36: Pharmacy [place] Consult 47 Dosing Protocol PHARMAC Y USE ONLY Note: This is not a medication order. This is a consultati on order. Vancomycin No [facility] Vancomycin l Dosing 23:36: Pharmacy [place] Consult 47 Dosing Protocol PHARMAC Y USE ONLY Note: This is not a medication order. This is a consultati on order. simethicone No Notes: Heath bobo 7-17 (Same as: l 23:30: Mylicon) ondansetron No Notes: Heath bobo 7-17 (Same as: l 23:30: Zofran) MEDICATION WASTE Product Size: 4 mg Product Wasted: ___ mg dextrometho No Notes: Heath boob rphan-guaiF 7-17 (dextromet l ENesin 10 23:30: [...] 1.4% 7-17 Chlorasept l spray 23:30: ic [place] (Same as: Chlorasept ic, Sore Throat [place]) WASTE: F/P - Black; E - Municipal [...] 7-17 (Same as: l tablet 23:30: Pepcid) [place] 5/325 No Notes: Heath bobo oral tablet 7-17 (Same as: l 23:30: Truxton [place] 325/5) Do not exceed 4gm/day of acetaminop [...] 1.4% 7-17 Chlorasept l spray 23:30: ic [place] (Same as: Chlorasept ic, Sore Throat [place]) WASTE: F/P - Black; E - Municipal Trash Bin Colace 100 No Notes: [facility] mg oral 7-17 (Same as: l capsule 23:30: Colace) (Do Not Crush) hydrALAZINE No Notes: Heath bobo 7-17 (Same as: l 23:30: Apresoline [place] 00 ) Push over 5 minutes melatonin 3 No Notes: Heath bobo mg oral 7-17 (Same as: l tablet 23:30: Melatonin) [place] Pepcid 20 No Notes: Memori a mg oral 7-17 (Same as: l tablet 23:30: Pepcid) [place] 5/325 No Notes: Heath bobo oral tablet 7-17 (Same as: l 23:30: [place] 325/5) Do not exceed 4gm/day of acetaminop [...] 1.4% 7-17 Chlorasept l spray 23:30: ic [place] (Same as: Chlorasept ic, Sore Throat [place]) WASTE: F/P - Black; E - Municipal [...] 7-17 (Same as: l tablet 23:30: Pepcid) [place] 5/325 No Notes: Heath bobo oral tablet 7-17 (Same as: l 23:30: [place] 00 325/5) Do not exceed 4gm/day [...] 1.4% -17 Chlorasept l spray 23:30: ic [place] (Same as: Chlorasept ic, Sore Throat [place]) WASTE: F/P - Black; E - Municipal [...] 7-17 (Same as: l tablet 23:30: Pepcid) [place] 5/325 No Notes: Heath bobo oral tablet 7-17 (Same as: l 23:30: [place] 325/5) Do not exceed 4gm/day of acetaminop [...] SOLN ud) (Same as: Robitussin DM) diphenhydrA 2022-0 No 25 mg, 1 Me moria MINE [...] 1.4% 7-17 Chlorasept l spray 23:30: ic [place] (Same as: Chlorasept ic, Sore Throat [place]) WASTE: F/P - Black; E - Municipal [...] 7-17 (Same as: l tablet 23:30: Pepcid) [place] 5/325 No Notes: Heath bobo oral tablet 7-17 (Same as: l 23:30: [place] 325/5) Do not exceed 4gm/day of acetaminop [...] as: l 2.5-0.5 mg 23:30: Duoneb) Herm inhalation solution Chlorasepti No Notes: Heath bobo c 1.4% 7-17 Chlorasept l spray 23:30: ic [place] (Same as: Chlorasept ic, Sore Throat [place]) WASTE: F/P - Black; E - Municipal [...] 7-17 (Same as: l tablet 23:30: Pepcid) [place] 5/325 No Notes: Heath bobo oral tablet 7-17 (Same as: l 23:30: Truxton [place] 325/5) Do not exceed 4gm/day of acetaminop [...] 1.4% 7-17 Chlorasept l spray 23:30: ic [place] (Same as: Chlorasept ic, Sore Throat [place]) WASTE: F/P - Black; E - Municipal [...] 7-17 (Same as: l tablet 23:30: Pepcid) [place] 5/325 No Notes: Heath bobo oral tablet 7-17 (Same as: l 23:30: [place] 325/5) Do not exceed 4gm/day of acetaminop [...] ___ mg dextrometho No Notes: Heath bobo rpnito-guaiF 7-17 (dextromet l ENesin 10 23:30: horphan-gu [...] 1.4% 7-17 Chlorasept l spray 23:30: ic [place] (Same as: Chlorasept ic, Sore Throat [place]) WASTE: F/P - Black; E - Municipal Trash Bin Col[place] 100 No Notes: [facility] mg oral 7-17 (Same as: l capsule 23:30: Colace) [place] (Do Not Crush) hydrALAZINE No Notes: Heath bobo 7-17 (Same as: l 23:30: Apresoline ) Push over 5 minutes melatonin 3 No Notes: Heath bobo mg oral 7-17 (Same as: l tablet 23:30: Melatonin) [place] nn 00 Pepcid 20 No Notes: Memori a mg oral 7-17 (Same as: l tablet 23:30: Pepcid) [place] 5/325 No Notes: Heath bobo oral tablet 7-17 (Same as: l 23:30: [place] 325/5) Do not exceed 4gm/day of acetaminop [...] 1.4% 7-17 Chlorasept l spray 23:30: ic [place] (Same as: Chlorasept ic, Sore Throat [place]) WASTE: F/P - Black; E - Municipal [...] 7-17 (Same as: l tablet 23:30: Pepcid) [place] 00 albuterol-i No Notes: Heath bobo pratropium 7-17 (Same as: l 2.5-0.5 mg 23:30: Duoneb) Herm silas inhalation 00 solution Chlorasepti No Notes: Heath bobo c 1.4% 7-17 Chlorasept l spray 23:30: ic [place] (Same as: Chlorasept ic, Sore Throat [place]) WASTE: F/P - Black; E - Municipal Trash Bin Col[place] 100 No Notes: [facility] mg oral 7-17 (Same as: l capsule 23:30: Colace) [place] (Do Not Crush) hydrALAZINE No Notes: Heath bobo 7-17 (Same as: l 23:30: Apresoline [place] ) Push over 5 minutes melatonin 3 No Notes: Heath bobo mg oral 7-17 (Same as: l tablet 23:30: Melatonin) [place] nn 00 Pepcid 20 No Notes: Memori a mg oral 7-17 (Same as: l tablet 23:30: Pepcid) [place] 5/325 No Notes: Heath bobo oral tablet 7-17 (Same as: l 23:30: [place] 00 325/5) Do not exceed 4gm/day of acetaminop hen. morphine No 1 mg, 0.5 Heath bobo Sulfate 7-17 mL, Route: l 23:30: IVP, Drug form: SOLN, Q4H, Dosing Weight 95.455, kg, PRN Pain Score 7-10, Start date: 12/14/21 18:30:00 CDT, Duration: 30 day, Stop date: 01/13/22 18:29:00 CDT, 0 [place] 5/325 No Notes: Heath bobo oral tablet 7-17 (Same as: l 23:30: [place] 00 325/5) Do not exceed 4gm/day of acetaminop hen. morphine No 1 mg, 0.5 Heath bobo Sulfate 7-17 mL, Route: l 23:30: IVP, Drug [place] 00 form: SOLN, Q4H, Dosing Weight 95.455, [...] 1.4% 7-17 Chlorasept l spray 23:30: ic [place] (Same as: Chlorasept ic, Sore Throat [place]) WASTE: F/P - Black; E - Municipal [...] 7-17 (Same as: l tablet 23:30: Pepcid) [place] 5/325 No Notes: Heath bobo oral tablet 7-17 (Same as: l 23:30: [place] 00 325/5) Do not exceed 4gm/day [...] Stop date: 01/13/22 18:28:00 CDT, 0 insulin 2021- No Notes: [facility] lispro 7-17 (Same as: l 23:29: Humalog) Roll in palms of hands gently; Do not shake vigorously . WASTE: F/P - Black; E - Municipal Trash Bin Stable for 28 days at room temperatur e. Expires in days from ____Date Dextrose 2022-0 No 25 mL, [facility] 50% Syringe 7-17 Route: l (D50W) 23:29: IVP, [place] Dosing Weight 95.455, kg, PRN, PRN Blood [...] Syringe 7-17 Route: l (D50W) 23:29: IVP, [place] 00 Dosing Weight 95.455, kg, PRN, PRN [...] lispro 7-17 (Same as: l 23:29: Humalog) [place] 00 Roll in palms of hands gently; [...] 7-17 Route: IM, l 23:29: Drug form: [place] 00 PDR/INJ, PRN, Dosing Weight 95.455, kg, PRN Blood Glucose Results, Start date: 12/14/21 18:29:00 CDT, Duration: 30 day, Stop date: 01/13/22 18:28:00 CDT, 0 insulin 2021-0 No Notes: [facility] lispro 7-17 (Same as: l 23:29: Humalog) [place] 00 Roll in palms of hands gently; [...] 7-17 Route: IM, l 23:29: Drug form: [place] 00 PDR/INJ, PRN, Dosing Weight 95.455, kg, PRN Blood Glucose Results, Start date: 12/14/21 18:29:00 CDT, Duration: 30 day, Stop date: 01/13/22 18:28:00 CDT, 0 insulin 2022-0 No Notes: [facility] lispro 7-17 (Same as: l 23:29: Humalog) [place] 00 Roll in palms of hands gently; Do not shake vigorously . WASTE: F/P - Black; E - Municipal Trash Bin Stable for 28 days at room temperatur e. Expires in days from ____Date Dextrose 2022-0 No 25 mL, [facility] 50% Syringe 7-17 Route: l (D50W) 23:29: IVP, [place] 00 Dosing Weight 95.455, kg, PRN, PRN Blood Glucose Results, Start date: 12/14/21 18:29:00 CDT, Duration: 30 day, Stop date: 01/13/22 18:28:00 CDT glucagon 2022-0 No 1 mg, [facility] 7-17 Route: IM, l 23:29: Drug form: [place] 00 PDR/INJ, PRN, Dosing Weight 95.455, kg, [...] lispro 7-17 (Same as: l 23:29: Humalog) [place] 00 Roll in palms of hands gently; [...] lispro 7-17 (Same as: l 23:29: Humalog) [place] 00 Roll in palms of hands gently; Do not shake vigorously . WASTE: F/P - Black; E - Municipal Trash Bin Stable for 28 days at room temperatur e. Expires in days from ____Date Dextrose 2021-0 No 25 mL, [facility] 50% Syringe 7-17 Route: l (D50W) 23:29: IVP, [place] 00 Dosing Weight 95.455, kg, PRN, PRN [...] 7-17 (Same as: l 23:28: Vitamin C) [place] No Notes: [facility] Perles 7-17 (Same As: l 23:28: Tessalon Perles) "Do Not Crush" zinc No Notes: [facility] sulfate 7-17 (Zinc l 23:28: sulfate capsule) - 220 mg Zinc sulfate = 50 mg elemental zinc Same as Zinc Sulfate ascorbic No Notes: [facility] acid 7-17 (Same as: l 23:28: Vitamin C) [place] No Notes: [facility] Perles 7-17 (Same As: l 23:28: Tessalon [place] 00 Perles) "Do Not Crush" zinc No [...] Perles 7-17 (Same As: l 23:28: Tessalon [place] 00 Perles) "Do Not Crush" zinc No Notes: [facility] sulfate 7-17 (Zinc l 23:28: sulfate [place] 00 capsule) - 220 mg Zinc sulfate = 50 mg elemental zinc Same as Zinc Sulfate ascorbic No Notes: [facility] acid 7-17 (Same as: l 23:28: Vitamin C) No Notes: [facility] Perles 7-17 (Same As: l 23:28: Tessalon [place] Perles) "Do Not Crush" zinc No Notes: [...] [facility]oria sulfate 7-17 (Zinc l 23:28: sulfate [place] 00 capsule) - 220 mg Zinc sulfate [...] [facility] sulfate 7-17 (Zinc l 23:28: sulfate [place] 00 capsule) - 220 mg Zinc sulfate [...] Rate: 999 l Water IV 21:08: ml/hr, [place] 00 Infuse over: 0.3 hr, Route: IV, [...] Rate: 999 l Water IV 21:08: ml/hr, [place] 00 Infuse over: 0.3 hr, Route: IV, [...] Rate: 999 l Water IV 21:08: ml/hr, [place] 00 Infuse over: 0.3 hr, Route: IV, Total Volume: 250, Start date: 12/14/21 16:08:00 CDT, Stop date: 12/14/21 16:08:00 CDT, 0 Dextrose 2022-0 No 250 mL, Memori a 10% in 12-14 Rate: 999 l Water IV 21:08: ml/hr, [place] Infuse over: 0.3 hr, Route: IV, Total Volume: 250, Start date: 12/14/21 16:08:00 CDT, Stop date: 12/14/21 16:08:00 CDT, 0 Dextrose 2022-0 No 250 mL, Memori a 10% in 12-14 Rate: 999 l Water IV 21:08: ml/hr, [place] Infuse over: 0.3 hr, Route: IV, Total Volume: 250, Start date: 12/14/21 16:08:00 CDT, Stop date: 12/14/21 16:08:00 CDT, 0 Dextrose 2022-0 No 250 mL, Memori a 10% in 12-14 Rate: 999 l Water IV 21:08: ml/hr, [place] 00 Infuse over: 0.3 hr, Route: IV, Total Volume: 250, Start date: 12/14/21 16:08:00 CDT, Stop date: 12/14/21 16:08:00 CDT, 0 Dextrose 2022-0 No 250 mL, Memori a 10% in 12-14 Rate: 999 l Water IV 21:08: ml/hr, [place] 00 Infuse over: 0.3 hr, Route: IV, Total Volume: 250, Start date: 12/14/21 16:08:00 CDT, Stop date: 12/14/21 16:08:00 CDT, 0 Dextrose 2022-0 No 250 mL, Memori a 10% in 12-14 Rate: 999 l Water IV 21:08: ml/hr, [place] Infuse over: 0.3 hr, Route: IV, Total Volume: 250, Start date: 12/14/21 16:08:00 CDT, Stop date: 12/14/21 16:08:00 CDT, 0 d50 syringe 2-0 No 25 mL, Heath bobo 7-17 Route: l 20:41: IVP, [place] Dosing Weight 95.455, kg, ONCE, STAT, Start date: 12/14/21 15:41:00 CDT, Stop date: 12/14/21 15:41:00 CDT, 25 ml = 12.5 gm d50 syringe 2-0 No 25 mL, Heath bobo 7-17 Route: l 20:41: IVP, [place] Dosing Weight 95.455, kg, ONCE, STAT, Start [...] Heath bobo 7-17 Route: l 20:41: IVP, [place] 00 Dosing Weight 95.455, kg, ONCE, STAT, [...] Heath bobo 7-17 Route: l 20:41: IVP, [place] 00 Dosing Weight 95.455, kg, ONCE, STAT, [...] Rate: To l 0.9% 01:29: prime line [place] (titrate) 00 and flush 250 mL remaining blood products., Dosing Weight 88.636, kg, Route: IV, Total Volume: 250, Start Date: 12/03/21 20:29:00 CDT, Duration: 1 day, Stop date: 12/04/21 20:28:00 CDT, Replace Every: 24 hr, 0 Sodium 2022-0 No 250 mL, [facility] Chloride 7-07 Rate: To l 0.9% 01:29: prime line [place] (titrate) 00 and flush 250 mL remaining blood products., Dosing Weight 88.636, kg, Route: IV, Total Volume: 250, Start Date: 12/03/21 20:29:00 CDT, Duration: 1 day, Stop date: 12/04/21 20:28:00 CDT, Replace Every: 24 hr, 0 Sodium 2022-0 No 250 mL, [facility] Chloride 7-07 Rate: To l 0.9% 01:29: prime line [place] (titrate) 00 and flush 250 mL remaining [...] Rate: To l 0.9% 01:29: prime line [place] (titrate) 00 and flush 250 mL remaining [...] tab, PO, l tablet 19:37: Daily, # [place] 00 30 tab, 0 Refill(s), other Plavix [...] tab, PO, l tablet 19:37: Daily, # [place] 00 30 tab, 0 Refill(s), other Plavix 75 2022-0 Yes 75 mg = 1 [facility] mg oral 6-28 tab, PO, l tablet 19:37: Daily, # [place] 00 30 tab, 0 Refill(s), other Plavix 75 2022-0 Yes 75 mg = 1 [facility] mg oral 6-28 tab, PO, l tablet 19:37: Daily, # [place] 00 30 tab, 0 Refill(s), other Plavix 75 0 Yes 75 mg = 1 [facility] mg oral 6-28 tab, PO, l tablet 19:37: Daily, # [place] 00 30 tab, 0 Refill(s), other Plavix 75 2021-0 Yes 75 mg = 1 [facility] mg oral 6-28 tab, PO, l tablet 19:37: Daily, # [place] 00 30 tab, 0 Refill(s), other Plavix [...] oria 6-28 IV push l 14:00: reconstitu [place] 00 te with 10 ml 0.9% sodium chloride and push over 2 minutes. (Same as: Protonix) atorvastati No Notes: Heath bobo n 6-28 (Same as: l 14:00: Lipitor) [place] 00 citalopram No Notes: [facility] 6-28 (Same As: l 14:00: CeleXA) [place] 00 Protonix No Notes: For Mem oria 6-28 IV push l 14:00: reconstitu [place] 00 te with 10 ml 0.9% sodium chloride and push over 2 minutes. (Same as: Protonix) atorvastati No Notes: Heath bobo n 6-28 (Same as: l 14:00: Lipitor) [place] 00 citalopram No Notes: [facility] ia 6-28 [...] ia 6-28 (Same As: l 14:00: CeleXA) [place] 00 Protonix No Notes: For Mem oria 6-28 IV push l 14:00: reconstitu [place] 00 te with 10 ml 0.9% sodium chloride and push over 2 minutes. (Same as: Protonix) atorvastati No Notes: Heath bobo n 6-28 (Same as: l 14:00: Lipitor) [place] citalopram No Notes: [facility] ia 6-28 (Same As: l 14:00: CeleXA) [place] 00 Protonix No Notes: For Mem oria 6-28 IV push l 14:00: reconstitu [place] 00 te with 10 ml 0.9% sodium chloride and push over 2 minutes. (Same as: Protonix) atorvastati No Notes: Heath bobo n 6-28 (Same as: l 14:00: Lipitor) [place] 00 citalopram No Notes: [facility] 6-28 (Same As: l 14:00: CeleXA) [place] 00 Protonix No Notes: For Mem [facility] 6-28 IV push l 14:00: reconstitu [place] 00 te with 10 ml 0.9% sodium chloride and push over 2 minutes. (Same as: Protonix) atorvastati No Notes: Heath bobo n 6-28 (Same as: l 14:00: Lipitor) [place] 00 citalopram No Notes: [facility] 6-28 (Same As: l 14:00: CeleXA) [place] Protonix No Notes: For Mem o[facility] 6-28 IV push l 14:00: reconstitu [place] 00 te with 10 ml 0.9% sodium chloride and push over 2 minutes. (Same as: Protonix) atorvastati No Notes: Heath bobo n 6-28 (Same as: l 14:00: Lipitor) [place] citalopram No Notes: [facility] 6-28 (Same As: l 14:00: CeleXA) [place] Protonix No Notes: For Mem oria 6-28 IV push l 14:00: reconstitu [place] 00 te with 10 ml 0.9% sodium chloride and push over 2 minutes. (Same as: Protonix) atorvastati No Notes: Heath bobo n 6-28 (Same as: l 14:00: Lipitor) [place] 00 citalopram No Notes: [facility] 6-28 (Same As: l 14:00: CeleXA) [place] 00 Protonix No Notes: For Mem o[facility] 6-28 IV push l 14:00: reconstitu [place] 00 te with 10 ml 0.9% sodium chloride and push over 2 minutes. (Same as: Protonix) atorvastati No Notes: Heath bobo n 6-28 (Same as: l 14:00: Lipitor) [place] 00 citalopram No Notes: [facility] 6-28 (Same As: l 14:00: CeleXA) [place] 00 Protonix No Notes: For Mem oria [...] bobo ne 6-28 Concentrat l 06:42: ion: [place] 00 4mg/ml dexamethaso 2021-0 No Notes: Heath bobo ne 6-28 Concentrat l 06:42: ion: [place] 00 4mg/ml dexamethaso 2021-0 No Notes: Heath bobo ne 6-28 Concentrat l 06:42: ion: [place] 00 4mg/ml dexamethaso 2021-0 No Notes: Heath bobo ne 6-28 Concentrat l 06:42: ion: [place] 00 4mg/ml dexamethaso 2021-0 No Notes: Heath bobo ne 6-28 Concentrat l 06:42: ion: [place] 00 4mg/ml dexamethaso 2021-0 No Notes: Heath bobo ne 6-28 Concentrat l 06:42: ion: [place] 00 4mg/ml dexamethaso 2021-0 No Notes: Heath bobo ne 6-28 Concentrat l 06:42: ion: [place] 00 4mg/ml dexamethaso 2021-0 No Notes: Heath bobo ne 6- Concentrat l 06:42: ion: [place] 00 4mg/ml D10W 0 No 125 mL, [facility] (bolus) IV 6-28 Rate: 999 l 06:31: ml/hr, [place] 00 Infuse over: 0.1 hr, Route: IVPB, Total Volume: 125, Start date: 11/25/21 1:31:00 CDT, Duration: 30 day, Stop date: 12/25/21 1:30:00 CDT, PRN Blood Glucose Results, 0 D1W No 125 mL, [facility] (bolus) IV 6-28 Rate: 999 l 06:31: ml/hr, [place] 00 Infuse over: 0.1 hr, Route: IVPB, Total Volume: 125, Start date: 11/25/21 1:31:00 CDT, Duration: 30 day, Stop date: 12/25/21 1:30:00 CDT, PRN Blood Glucose Results, 0 D10W 2021-0 No 125 mL, [facility]oria (bolus) IV 6- Rate: 999 l 06:31: ml/hr, [place] 00 Infuse over: 0.1 hr, Route: IVPB, Total Volume: 125, Start date: 11/25/21 1:31:00 CDT, Duration: 30 day, Stop date: 12/25/21 1:30:00 CDT, PRN Blood Glucose Results, 0 D10W 2021-0 No 125 mL, [facility] (bolus) IV 6- Rate: 999 l 06:31: ml/hr, [place] 00 Infuse over: 0.1 hr, Route: IVPB, Total Volume: 125, Start date: 11/25/21 1:31:00 CDT, Duration: 30 day, Stop date: 12/25/21 1:30:00 CDT, PRN Blood Glucose Results, 0 D10W 2021-0 No 125 mL, [facility] (bolus) IV - Rate: 999 l 06:31: ml/hr, [place] 00 Infuse over: 0.1 hr, Route: IVPB, Total Volume: 125, Start date: 11/25/21 1:31:00 CDT, Duration: 30 day, Stop date: 12/25/21 1:30:00 CDT, PRN Blood Glucose Results, 0 D10W 2021-0 No 125 mL, [facility]oria (bolus) IV - Rate: 999 l 06:31: ml/hr, [place] 00 Infuse over: 0.1 hr, Route: IVPB, [...] 1:22:00 CDT, PRN Blood Glucose Results, 0 D12021-0 No 250 mL, Memoria (bolus) IV 6-28 Rate: 999 l 06:23: ml/hr, [place] 00 Infuse over: 0.3 hr, Route: IVPB, Total Volume: 250, Start date: 11/25/21 1:23:00 CDT, Duration: 30 day, Stop date: 12/25/21 1:22:00 CDT, PRN Blood Glucose Results, 0 D12021-0 No 250 mL, Memoria (bolus) IV 6- Rate: 999 l 06:23: ml/hr, [place] 00 Infuse over: 0.3 hr, Route: IVPB, Total Volume: 250, Start date: 11/25/21 1:23:00 CDT, Duration: 30 day, Stop date: 12/25/21 1:22:00 CDT, PRN Blood Glucose Results, 0 D12021-0 No 250 mL, Memoria (bolus) IV 6- Rate: 999 l 06:23: ml/hr, [place] 00 Infuse over: 0.3 hr, Route: IVPB, [...] IV 6-28 Rate: 999 l 06:23: ml/hr, [place] 00 Infuse over: 0.3 hr, Route: IVPB, [...] IV 11-25 Rate: 999 l 06:23: ml/hr, [place] 00 Infuse over: 0.3 hr, Route: IVPB, [...] lispro 11-25 (Same as: l 05:55: Humalog) [place] 00 Roll in palms of hands gently; Do not shake vigorously . WASTE: F/P - Black; E - Municipal Trash Bin Stable for 28 days at room temperatur e. Expires in days from ____Date Dextrose 2021-0 No 25 mL, Memoria 50% Syringe 11-25 Route: l (D50W) 05:55: IVP, [place] 00 Dosing Weight 94.545, kg, PRN, PRN [...] 11-25 Route: IM, l 05:55: Drug form: [place] 00 PDR/INJ, PRN, Dosing Weight 94.545, kg, [...] Syringe 11-25 Route: l (D50W) 05:55: IVP, [place] 00 Dosing Weight 94.545, kg, PRN, PRN [...] lispro 6-28 (Same as: l 05:55: Humalog) [place] 00 Roll in palms of hands gently; Do not shake vigorously . WASTE: F/P - Black; E - Municipal Trash Bin Stable for 28 days at room temperatur e. Expires in days from ____Date Dextrose 2021-0 No 25 mL, Memoria 50% Syringe 11-25 Route: l (D50W) 05:55: IVP, [place] 00 Dosing Weight 94.545, kg, PRN, PRN Blood Glucose Results, Start date: 11/25/21 0:55:00 CDT, Duration: 30 day, Stop date: 12/25/21 0:54:00 CDT glucagon 2021-0 No 1 mg, Memoria 11-25 Route: IM, l 05:55: Drug form: [place] 00 PDR/INJ, PRN, Dosing Weight 94.545, kg, PRN Blood Glucose Results, Start date: 11/25/21 0:55:00 CDT, Duration: 30 day, Stop date: 12/25/21 0:54:00 CDT, 0 insulin 2021-0 No Notes: [facility]oria lispro 11-25 (Same as: l 05:55: Humalog) [place] 00 Roll in palms of hands gently; [...] 11-25 Route: IM, l 05:55: Drug form: [place] 00 PDR/INJ, PRN, Dosing Weight 94.545, kg, PRN Blood Glucose Results, Start date: 11/25/21 0:55:00 CDT, Duration: 30 day, Stop date: 12/25/21 0:54:00 CDT, 0 insulin 2022-0 No Notes: [facility]oria lispro 6-28 (Same as: l 05:55: Humalog) Roll in palms of hands gently; Do not shake vigorously . WASTE: F/P - Black; E - Municipal Trash Bin Stable for 28 days at room temperatur e. Expires in days from ____Date Dextrose 2021-0 No 25 mL, Memoria 50% Syringe 11-25 Route: l (D50W) 05:55: IVP, [place] 00 Dosing Weight 94.545, kg, PRN, PRN Blood Glucose Results, Start date: 11/25/21 0:55:00 CDT, Duration: 30 day, Stop date: 12/25/21 0:54:00 CDT glucagon 2021-0 No 1 mg, Memoria 11-25 Route: IM, l 05:55: Drug form: [place] 00 PDR/INJ, PRN, Dosing Weight 94.545, kg, [...] 11-25 Route: IM, l 05:55: Drug form: [place] 00 PDR/INJ, PRN, Dosing Weight 94.545, kg, [...] 11-25 Route: IM, l 05:55: Drug form: [place] 00 PDR/INJ, PRN, Dosing Weight 94.545, kg, [...] e. Expires in days from ____Date Dextrose 0 No 25 mL, Memoria 50% Syringe 11-25 Route: l (D50W) 05:55: IVP, Dosing Weight 94.545, kg, PRN, PRN Blood Glucose Results, Start date: 11/25/21 0:55:00 CDT, Duration: 30 day, Stop date: 12/25/21 0:54:00 CDT glucagon 2021-0 No 1 mg, Memoria 11-25 Route: IM, l 05:55: Drug form: [place] 00 PDR/INJ, PRN, Dosing Weight 94.545, kg, PRN Blood Glucose Results, Start date: 11/25/21 0:55:00 CDT, Duration: 30 day, Stop date: 12/25/21 0:54:00 CDT, 0 insulin 2021-0 No Notes: [facility]oria lispro 11-25 (Same as: l 05:55: Humalog) [place] 00 Roll in palms of hands gently; Do not shake vigorously . WASTE: F/P - Black; E - Municipal Trash Bin Stable for 28 days at room temperatur e. Expires in days from ____Date Zofran No Notes: Memoria 6-28 (Same as: l 05:54: Zofran) [place] 00 MEDICATION WASTE Product Size: 4 mg Product Wasted: ___ mg Tylenol No Notes: Do Memor ia 6-28 not exceed l 05:54: 4 gm/day. [place] 00 (Same as: Tylenol) No Notes: Memoria [...] Memoria 6-28 (Same as: l 05:54: Zofran) [place] 00 MEDICATION WASTE Product Size: 4 mg Product Wasted: ___ mg Tylenol No Notes: Do Memor ia 6-28 not exceed l 05:54: 4 gm/day. [place] 00 (Same as: Tylenol) No Notes: Memoria [...] Memoria 6-28 (Same as: l 05:54: Zofran) [place] MEDICATION WASTE Product Size: 4 mg Product Wasted: ___ mg Tylenol No Notes: Do Memor ia 6-28 not exceed l 05:54: 4 gm/day. [place] 00 (Same as: Tylenol) salon No Notes: Memoria Perles 6-28 (Same As: l 05:54: Tessalon [place] 00 Perles) "Do Not Crush" simethicone No Notes: Heath bobo 6-28 (Same as: l 05:54: Mylicon) [place] 00 senna 8.6 No Notes: Memori a mg oral 6-28 (Same as: l tablet 05:54: Senokot) [place] 00 Colace 50 No Notes: Memori a mg oral 6-28 (Same as: l capsule 05:54: Colace) Zofran No Notes: Memoria 6-28 (Same as: l 05:54: Zofran) [place] 00 MEDICATION WASTE Product Size: 4 mg Product Wasted: ___ mg Tylenol No Notes: Do Memor ia 6-28 not exceed l 05:54: 4 gm/day. [place] 00 (Same as: Tylenol) salon No Notes: [...] Memoria 6-28 (Same as: l 05:54: Zofran) [place] 00 MEDICATION WASTE Product Size: 4 mg Product Wasted: ___ mg Tylenol No Notes: Do Memor ia 6-28 not exceed l 05:54: 4 gm/day. [place] 00 (Same as: Tylenol) salon No Notes: Memoria Perles 6-28 (Same As: l 05:54: Tessalon Perles) "Do Not Crush" simethicone No Notes: Heath bobo 6-28 (Same as: l 05:54: Mylicon) senna 8.6 No Notes: Memori a mg oral 6-28 (Same as: l tablet 05:54: Senokot) [place] 00 Colace 50 No Notes: Memori a mg oral 6-28 (Same as: l capsule 05:54: Colace) [place] 00 Zofran No Notes: Memoria 6-28 (Same [...] 6-28 (Same as: l tablet 05:54: Senokot) [place] 00 Colace 50 No Notes: Memori a mg oral 6-28 (Same as: l capsule 05:54: Colace) [place] 00 Zofran No Notes: Memoria 6-28 (Same as: l 05:54: Zofran) MEDICATION WASTE Product Size: 4 mg Product Wasted: ___ mg Tylenol No Notes: Do Memor ia 6-28 not exceed l 05:54: 4 gm/day. [place] 00 (Same as: Tylenol) salon No Notes: Memoria Perles 6-28 (Same As: l 05:54: Tessalon [place] 00 Perles) "Do Not Crush" simethicone No Notes: Heath bobo 6-28 (Same as: l 05:54: Mylicon) [place] 00 senna 8.6 No Notes: Memori a mg oral 6-28 (Same as: l tablet 05:54: Senokot) [place] 00 Colace 50 No Notes: Memori a mg oral 6-28 (Same as: l capsule 05:54: Colace) [place] 00 Zofran No Notes: Memoria 6-28 (Same [...] 6-28 (Same as: l capsule 05:54: Colace) [place] 00 Zofran No Notes: Memoria 6-28 (Same as: l 05:54: Zofran) [place] 00 MEDICATION WASTE Product Size: 4 mg Product Wasted: ___ mg Tylenol No Notes: Do Memor ia 6-28 not exceed l 05:54: 4 gm/day. [place] 00 (Same as: Tylenol) salon No Notes: Memoria Perles 6-28 (Same As: l 05:54: Tessalon [place] 00 Perles) "Do Not Crush" simethicone 2022-0 No Notes: Heath bobo 6-28 (Same as: l 05:54: Mylicon) [place] 00 senna 8.6 No Notes: Memori a [...] 6-28 not exceed l 05:54: 4 gm/day. [place] 00 (Same as: Tylenol) sal2021 No Notes: Memoria Perles 6-28 (Same As: l 05:54: Tessalon [place] 00 Perles) "Do Not Crush" simethicone No [...] 6-28 Refill(s) l oral tablet 05:53: Basaglar 2022-0 Yes 0 Memoria KwikPen 100 6-28 Refill(s) l units/mL 05:53: ne 00 s solution Dialyvite 0 Yes 0 [...] 6-28 Refill(s) l tablet 05:53: [place] 00 cefTRIAXone No Notes: Heath bobo + [...] 1000 mg Product Wasted: ___ mg cefTRIAXone 2-0 No Notes: Heath bobo + Sodium 6-28 (Same As: l Chloride 05:27: Rocephin). Her clayton 0.9% IV 50 00 Use with mL 100 mL NS and infuse over 30 min MEDICATION WASTE Product Size: 1000 mg Product Wasted: ___ mg cefTRIAXone 2022-0 No Notes: Heath boob + Sodium 6-28 (Same As: l Chloride [...] 1000 mg Product Wasted: ___ mg cefTRIAXone 2-0 No Notes: Heath bobo + Sodium 6-28 [...] oria 6-28 IV push l 03:37: reconstitu [place] 00 te with 10 ml 0.9% sodium [...] oria 6-28 IV push l 03:37: reconstitu [place] 00 te with 10 ml 0.9% sodium [...] (Same as: Protonix) Advair HFA Advair HFA 2019- Yes [place] 2 puffs Common 1-15 [facility]: - [facility] 00 [facility] BD BD 2018-05 Yes La 1 needle Common Ultra-Fine Ultra-Fine 0-09 [facility] with Sp jerome Christina Pen Christina Pen 00:00: Basaglar - [facility] [place] 00 [facility] BD BD 2018-05 No QD BD Ultra-Fine Ultra-Fine 0-09 Ultra-Fine Christina Pen Christina Pen 00:00: Christina Pen [place] 4mm [place] 4mm 00 [place] x 32Gm x 32Gm 4mm x 32Gm [facility] 2018- No QD BD Ultra-Fine Ultra-Fine 0-09 Ultra-Fine Christina Pen Christina Pen 00:00: Christina Pen [place] 4mm [place] 4mm 00 [place] x 32Gm x 32Gm 4mm x 32Gm [facility] 2018- No QD BD Ultra-Fine Ultra-Fine 0-09 Ultra-Fine Christina Pen Christina Pen 00:00: Christina Pen [place] 4mm [place] 4mm 00 [place] x 32Gm x 32Gm 4mm x 32Gm [facility] 2018- No QD BD Ultra-Fine Ultra-Fine 0-09 Ultra-Fine Christina Pen Christina Pen 00:00: Christina Pen [place] 4mm [place] 4mm 00 [place] x 32Gm x 32Gm 4mm x 32Gm [facility] 2018- No QD BD Ultra-Fine Ultra-Fine 0-09 Ultra-Fine Christina Pen Christina Pen 00:00: Christina Pen [place] 4mm [place] 4mm 00 [place] x 32Gm x 32Gm 4mm x 32Gm [facility] 2018- No QD BD Ultra-Fine Ultra-Fine 0-09 Ultra-Fine Christina Pen Christina Pen 00:00: Christina Pen [place] 4mm [place] 4mm 00 [place] x 32Gm x 32Gm 4mm x 32Gm [facility] 2018- No QD BD Ultra-Fine Ultra-Fine 0-09 Ultra-Fine Christina Pen Christina Pen 00:00: Christina Pen [place] 4mm [place] 4mm 00 [place] x 32Gm x 32Gm 4mm x 32Gm [facility] 2018- No QD BD Ultra-Fine Ultra-Fine 0-09 Ultra-Fine Christina Pen Christina Pen 00:00: Christina Pen [place] 4mm [place] 4mm 00 [place] x 32Gm x 32Gm 4mm x 32Gm [facility] 2018- No QD BD Ultra-Fine Ultra-Fine 0-09 Ultra-Fine Christina Pen Christina Pen 00:00: Christina Pen [place] 4mm [place] 4mm 00 [place] x 32Gm x 32Gm 4mm x 32Gm [facility] 2018- No QD BD Ultra-Fine Ultra-Fine 0-09 Ultra-Fine Christina Pen Christina Pen 00:00: Christina Pen [place] 4mm [place] 4mm 00 [place] x 32Gm x 32Gm 4mm x 32Gm [facility] 2018- No QD BD Ultra-Fine Ultra-Fine 0-09 Ultra-Fine Christina Pen Christina Pen 00:00: Christina Pen [place] 4mm [place] 4mm 00 [place] x 32Gm x 32Gm 4mm x 32Gm [facility] 2018-05 No QD BD Ultra-Fine Ultra-Fine 0-09 Ultra-Fine Christina Pen Christina Pen 00:00: Christina Pen [place] 4mm [place] 4mm 00 [place] x 32Gm x 32Gm 4mm x 32Gm [facility] 2018- No QD BD Ultra-Fine Ultra-Fine 0-09 Ultra-Fine Christina Pen Christina Pen 00:00: Christina Pen [place] 4mm [place] 4mm 00 [place] x 32Gm x 32Gm 4mm x 32Gm [facility] 2018- No QD BD Ultra-Fine Ultra-Fine 0-09 Ultra-Fine Christina Pen Christina Pen 00:00: Christina Pen [place] 4mm [place] 4mm 00 [place] x 32Gm x 32Gm 4mm x 32Gm [facility] 2018- No QD BD Ultra-Fine Ultra-Fine 0-09 Ultra-Fine Christina Pen Christina Pen 00:00: Christina Pen [place] 4mm [place] 4mm 00 [place] x 32Gm x 32Gm 4mm x 32Gm [facility] 2018- No QD BD Ultra-Fine Ultra-Fine 0-09 Ultra-Fine Christina Pen Christina Pen 00:00: Christina Pen [place] 4mm [place] 4mm 00 [place] x 32Gm x 32Gm 4mm x 32Gm [facility] 2018- No QD BD Ultra-Fine Ultra-Fine 0-09 Ultra-Fine Christina Pen Christina Pen 00:00: Christina Pen [place] 4mm [place] 4mm 00 [place] x 32Gm x 32Gm 4mm x 32Gm [facility] 2018-05 No QD BD Ultra-Fine Ultra-Fine 0-09 Ultra-Fine Christina Pen Christina Pen 00:00: Christina Pen [place] 4mm [place] 4mm 00 [place] x 32Gm x 32Gm 4mm x 32Gm [facility] 2018-05 No QD BD Ultra-Fine Ultra-Fine 0-09 Ultra-Fine Christina Pen Christina Pen 00:00: Christina Pen [place] 4mm [place] 4mm 00 [place] x 32Gm x 32Gm 4mm x 32Gm [facility] 2018- No QD BD Ultra-Fine Ultra-Fine 0-09 Ultra-Fine Christina Pen Christina Pen 00:00: Christina Pen [place] 4mm [place] 4mm 00 [place] x 32Gm x 32Gm 4mm x 32Gm [facility] 2018- No QD BD Ultra-Fine Ultra-Fine 0-09 Ultra-Fine Christina Pen Christina Pen 00:00: Christina Pen [place] 4mm [place] 4mm 00 [place] x 32Gm x 32Gm 4mm x 32Gm BD BD 2019- No QD BD Ultra-Fine Ultra-Fine 0-09 Ultra-Fine Christina Pen Christina Pen 00:00: Christina Pen [place] 4mm [place] 4mm 00 [place] x 32Gm x 32Gm 4mm x 32Gm [...] tablet C ommon 750 750 [facility] Basaglar Basaglar Yes [place] 52 Units C ommon KwikPen KwikPen [facility] PreserVisio PreserVisio Yes La as Common n AREDS n AREDS [facility] directed Spir [facility] Citalopram Citalopram Yes La 1 tablet Common Hydrobromid Hydrobromid [facility] e e [facility] Stool Stool Yes La not Common Softener Softener [facility] defined Spi rit [facility] Gentle Gentle Yes La 1 tablet Commo n Laxative Laxative [facility] as needed S pirit [facility] Atorvastati Atorvastati Yes La 1 tablet Common n Calcium n Calcium [facility] Contour Contour Yes La USE 3 Common Test Test Fortune TIMES A [facility] DAY [facility] Eliquis 2.5 Eliquis 2.5 Yes La 1 tablet Common mg mg [facility] Multivitami Multivitami Yes La as Common n Adult n Adult [facility] directed Spir it [facility] Carvedilol Carvedilol Yes La TAKE 1 Common [facility] TABLET BY Spirit MOUTH - [facility] TWICE A [facility] DAY ON [facility] DIALYSIS Medical DAYS Center Atorvastati Atorvastati Yes La TAKE 1 Common n Calcium n Calcium [facility] TABLET BY Spirit MOUTH - [facility] EVERY DAY [facility] GlipiZIDE GlipiZIDE Yes La 1 tablet Common [facility] Basaglar Basaglar Yes La 50 Units C ommon KwikPen KwikPen [facility] Advair HFA Advair HFA No 2{puffs BID [...] Dexcom G6 Dexcom G6 No Dexcom G6 Diet Technician Registered - Diet Technician Registered - Diet Technician Registered - Carvedilol Carvedilol No Carvedilol 12.5 MG [...] Dexcom G6 Dexcom G6 No Dexcom G6 Diet Technician Registered - Diet Technician Registered - Diet Technician Registered - glipiZIDE 5 glipiZIDE 5 No 1{table [...] Dexcom G6 Dexcom G6 No Dexcom G6 Diet Technician Registered - Diet Technician Registered - Diet Technician Registered - Ipratropium Ipratropium No Ipratropiu -Albuterol -Albuterol [...] Dexcom G6 Dexcom G6 No Dexcom G6 Diet Technician Registered - Diet Technician Registered - Diet Technician Registered - Gentle Gentle No 1{table QD Gentle [...] Dexcom G6 Dexcom G6 No Dexcom G6 Diet Technician Registered - Diet Technician Registered - Diet Technician Registered - PreserVisio PreserVisio No PreserVisi n AREDS [...] Dexcom G6 Dexcom G6 No Dexcom G6 Diet Technician Registered - Diet Technician Registered - Diet Technician Registered - Advair HFA Advair HFA No 2{puffs [...] Dexcom G6 Dexcom G6 No Dexcom G6 Diet Technician Registered - Diet Technician Registered - Diet Technician Registered - Advair HFA Advair HFA No 2{puffs [...] Dexcom G6 Dexcom G6 No Dexcom G6 Diet Technician Registered - Diet Technician Registered - Diet Technician Registered - Advair HFA Advair HFA No 2{puffs [...] Dexcom G6 Dexcom G6 No Dexcom G6 Diet Technician Registered - Diet Technician Registered - Diet Technician Registered - Atorvastati Atorvastati No 1{table QD Atorvastat [...] Dexcom G6 Dexcom G6 No Dexcom G6 Diet Technician Registered - Diet Technician Registered - Diet Technician Registered - Atorvastati Atorvastati No Atorvastat n Calcium [...] Dexcom G6 Dexcom G6 No Dexcom G6 Diet Technician Registered - Diet Technician Registered - Diet Technician Registered - Atorvastati Atorvastati No Atorvastat n Calcium [...] FluAD 2021-03-30 Completed [facility] 13:13:00 - [facility] FluAD FluAD 2021-03-30 Completed [facility] 13:13:00 - [facility] FluAD FluAD 2021-03-30 Completed [facility] 13:13:00 - [facility] FluAD FluAD 2021-03-30 Completed [facility] 13:13:00 - [facility] FluAD FluAD 2021-03-30 Completed [facility] 13:13:00 - [facility] FluAD FluAD 2021-03-30 Completed [facility] 13:13:00 - [facility] FluAD FluAD 2021-03-30 Completed [facility] 13:13:00 - [facility] FluAD FluAD 2021-03-30 Completed [facility] 13:13:00 - [facility] FluAD FluAD 2021-03-30 Completed [facility] 13:13:00 - [facility] FluAD FluAD 2021-03-30 Completed [facility] 13:13:00 - [facility] FluAD FluAD 2021-03-30 Completed [facility] 13:13:00 - [facility] FluAD FluAD 2021-03-30 Completed [facility] 13:13:00 - [facility] FluAD FluAD 2021-03-30 Completed [facility] 13:13:00 - [facility] FluAD FluAD 2021-03-30 Completed [facility] 13:13:00 - [facility] FluAD FluAD 2021-03-30 Completed [facility] 13:13:00 - [facility] FluAD FluAD 2021-03-30 Completed [facility] 13:13:00 - [facility] FluAD FluAD 2021-03-30 Completed [facility] 13:13:00 - [facility] FluAD FluAD 2021-03-30 Completed [facility] 13:13:00 - [facility] FluAD FluAD 2021-03-30 Completed [facility] 13:13:00 - [facility] FluAD FluAD 2021-03-30 Completed [facility] 13:13:00 - [facility] COVID-19 Vaccine COVID-19 Vaccine 2020-08-19 Completed [facility] (Andrea) (Andrea) 09:17:00 - [facility] COVID-19 Vaccine COVID-19 Vaccine 2020-08-19 Completed [facility] (Andrea) (Andrea) 09:17:00 - [facility] COVID-19 Vaccine COVID-19 Vaccine 2020-08-19 Completed [facility] (Andrea) (Andrea) 09:17:00 - [facility] COVID-19 Vaccine COVID-19 Vaccine 2020-08-19 Completed [facility] ([facility]rea[facility] (Andrea) 09:17:00 [facility] COVID-19 Vaccine COVID-19 Vaccine 2020-08-19 Completed [facility] (Andrea) (Andrea) 09:17:00 - [facility] COVID-19 Vaccine COVID-19 Vaccine 2020-08-19 Completed [facility] (Andrea) (Andrea) 09:17:00 - [facility] COVID-19 Vaccine COVID-19 Vaccine 2020-08-19 Completed [facility] ([facility]rea[facility] (Andrea) 09:17:00 [facility] COVID-19 Vaccine COVID-19 Vaccine 2020-08-19 Completed [facility] ([facility]rea[facility] (Andrea) 09:17:00 [facility] COVID-19 Vaccine COVID-19 Vaccine 2020-08-19 Completed [facility] ([facility]) (Andrea) 09:17:00 [facility] COVID-19 Vaccine COVID-19 Vaccine 2020-08-19 Completed [facility] ([facility]rea[facility] (Andrea) 09:17:00 [facility] COVID-19 Vaccine COVID-19 Vaccine 2020-08-19 Completed [facility] ([facility]rea) (Andrea) 09:17:00 [facility] COVID-19 Vaccine COVID-19 Vaccine 2020-08-19 Completed [facility] ([facility]) (Andrea) 09:17:00 [facility] COVID-19 Vaccine COVID-19 Vaccine 2020-08-19 Completed [facility] (Andrea) (Andrea) 09:17:00 - [facility] COVID-19 Vaccine COVID-19 Vaccine 2020-08-19 Completed [facility] (Andrea) (Andrea) 09:17:00 - [facility] COVID-19 Vaccine COVID-19 Vaccine 2020-08-19 Completed [facility] (Andrea) (Andrea) 09:17:00 - [facility] COVID-19 Vaccine COVID-19 Vaccine 2020-08-19 Completed [facility] (Andrea) (Andrea) 09:17:00 - [facility] COVID-19 Vaccine COVID-19 Vaccine 2020-08-19 Completed [facility] ([facility] (Andrea) 09:17:00 [facility] COVID-19 Vaccine COVID-19 Vaccine 2020-08-19 Completed [facility] ([facility]rea[facility] (Andrea) 09:17:00 [facility] COVID-19 Vaccine COVID-19 Vaccine 2020-08-19 Completed [facility] ([facility]rea) (Andrea) 09:17:00 - [facility] COVID-19 Vaccine COVID-19 Vaccine 2020-08-19 Completed [facility] ([facility]rea[facility] (Andrea) 09:17:00 [facility] COVID-19 Vaccine COVID-19 Vaccine 2020-08-19 Completed [facility] ([facility] (Andrea) 09:17:00 [facility] COVID-19 Vaccine COVID-19 Vaccine 2020-08-19 Completed [facility] ([facility]rea[facility] (Andrea) 09:17:00 [facility] Vital Signs Vital Name Observation Time Observation Value Comments Source Systolic blood 2022-10-31 17:36:00 132 mm[Hg] Univer sity of pressure [facility] Diastolic blood 2022-10-31 17:36:00 61 mm[Hg] Unive rsity of pressure [facility] Heart rate 2022-10-31 17:36:00 67 /min [facility] Respiratory rate 2022-10-31 17:36:00 19 /min [facility] in 2022-10-31 17:36:00 100 /min [facility] Arterial blood by [facility] Pulse oximetry Branch Body temperature 2022-10-31 13:59:00 37.39 Makayla [facility] ersity of [facility] Body height 2022-10-31 13:59:00 177.8 cm [facility]i ty [facility] Body weight 2022-10-31 13:59:00 71.668 kg [facility] BMI 2022-10-31 13:59:00 22.67 kg/m2 [facility] Heart rate 2022-10-15 19:00:00 92 /min [facility] Respiratory rate 2022-10-15 19:00:00 13 /min [facility] Oxygen saturation in 2022-10-15 19:00:00 86 /min [facility] Arterial blood by [facility] Pulse oximetry [place] Systolic blood 2022-10-15 17:00:00 144 mm[Hg] Univer sity of [facility] Diastolic blood 2022-10-15 17:00:00 53 mm[Hg] [facility] Body temperature 2022-10-15 16:08:00 37.44 Makayla [facility] ersity of [facility] Body weight 2022-10-15 14:00:00 70.489 kg [facility] BMI 2022-10-15 14:00:00 25.86 kg/m2 [facility] Body height 2022-10-10 19:00:00 165.1 cm [facility] height 2022-02-17 15:00:00 70 [in_i] Common [facility] weight 2022-02-17 15:00:00 208 [lb_av] Common [facility] temperature 2022-02-17 15:00:00 98.1 [degF] Common [facility] bmi 2022-02-17 15:00:00 29.84 kg/m2 Common [facility] blood pressure 2022-02-17 15:00:00 121 mm[Hg] [facility] - systolic [facility] blood pressure 2022-02-17 15:00:00 61 mm[Hg] [facility] - diastolic [facility] height 2022-01-06 14:30:00 70 [in_i] Common S [facility] weight 2022-01-06 14:30:00 208 [lb_av] Common S pirit [facility] bmi 2022-01-06 14:30:00 29.84 kg/m2 Common S pirit - [facility] blood pressure 2022-01-06 14:30:00 137 mm[Hg] [facility] - systolic [facility] blood pressure 2022-01-06 14:30:00 79 mm[Hg] [facility] - diastolic [facility] height 2021-11-03 09:45:00 70 [in_i] Common [facility] weight 2021-11-03 09:45:00 210 [lb_av] Common [facility] bmi 2021-11-03 09:45:00 30.13 kg/m2 [facility] blood pressure 2021-11-03 09:45:00 144 mm[Hg] [facility] - systolic [facility] blood pressure 2021-11-03 09:45:00 86 mm[Hg] [facility] - diastolic [facility] height 2021-07-28 14:10:00 70 [in_i] [facility] weight 2021-07-28 14:10:00 211.8 [lb_av] Common [facility] temperature 2021-07-28 14:10:00 97.5 [degF] [facility] bmi 2021-07-28 14:10:00 30.39 kg/m2 [facility] oximetry 2021-07-28 14:10:00 93 % [facility] respiratory rate 2021-07-28 14:10:00 16 /min Comm on [facility] blood pressure 2021-07-28 14:10:00 134 mm[Hg] Common [facility] - systolic [facility] blood pressure 2021-07-28 14:10:00 63 mm[Hg] [facility] height 2021-07-28 13:20:00 70 [in_i] [facility] weight 2021-07-28 13:20:00 211.8 [lb_av] [facility] temperature 2021-07-28 13:20:00 97.5 [degF] [facility] bmi 2021-07-28 13:20:00 30.39 kg/m2 [facility] oximetry 2021-07-28 13:20:00 93 % [facility] 2021-07-28 13:20:00 16 /min Comm on [facility] blood pressure 2021-07-28 13:20:00 134 mm[Hg] [facility] blood pressure 2021-07-28 13:20:00 62 mm[Hg] [facility] height 2021-04-28 13:10:00 70 [in_i] [facility] weight 2021-04-28 13:10:00 215.9 [lb_av] [facility] temperature 2021-04-28 13:10:00 97.3 [degF] [facility] bmi 2021-04-28 13:10:00 30.98 kg/m2 [facility] oximetry 2021-04-28 13:10:00 95 % [facility] respiratory rate 2021-04-28 13:10:00 17 /min Comm on [facility] blood pressure 2021-04-28 13:10:00 121 mm[Hg] [facility] blood pressure 2021-04-28 13:10:00 60 mm[Hg] [facility] height 2021-03-12 09:30:00 70 [in_i] [facility] weight 2021-03-12 09:30:00 211.4 [lb_av] Common [facility] temperature 2021-03-12 09:30:00 97.7 [degF] Common [facility] bmi 2021-03-12 09:30:00 30.33 kg/m2 Common [facility] oximetry 2021-03-12 09:30:00 95 % [facility] respiratory rate 2021-03-12 09:30:00 16 /min Comm on [facility] blood pressure 2021-03-12 09:30:00 132 mm[Hg] Common [facility] - systolic [facility] blood pressure 2021-03-12 09:30:00 67 mm[Hg] Common [facility] - diastolic [facility] Heart Rate 2022-01-02 21:14:00 [facility] Rate 2022-01-02 21:14:00 [facility] [place] Systolic (mm Hg) 2022-01-02 21:14:00 Heath [facility] [place] Diastolic (mm Hg) 2022-01-02 21:14:00 [facility] Height 2022-01-02 17:28:00 167.64 cm [facility] BMI Calculated 2022-01-02 17:28:00 [facility] [place] Weight 2022-01-02 17:28:00 [facility] Systolic (mm Hg) 2022-01-02 17:28:00 Heath [facility] [place] Diastolic (mm Hg) 2022-01-02 17:28:00 [facility] [place] Heart Rate 2022-01-02 17:28:00 [facility] Respitory Rate 2022-01-02 17:28:00 [facility] [place] Temperature Oral (F) 2022-01-02 17:28:00 97.5 F [facility] Temperature Oral (F) 2021-12-17 00:00:00 98.0 F [facility] Heart Rate 2021-12-17 00:00:00 [facility]itory Rate 2021-12-17 00:00:00 [facility] [place] Systolic (mm Hg) 2021-12-17 00:00:00 Heath [facility] [place] Diastolic (mm Hg) 2021-12-17 00:00:00 Mem [facility] [place] Heart Rate 2021-12-16 21:00:00 [facility] [place] Respitory Rate 2021-12-16 21:00:00 [facility] [place] Systolic (mm Hg) 2021-12-16 21:00:00 Heath [facility] [place] Diastolic (mm Hg) 2021-12-16 21:00:00 [facility] Temperature Oral (F) 2021-12-16 21:00:00 98.0 F [facility] [place] Heart Rate 2021-12-16 20:20:00 [facility] [place] Respitory Rate 2021-12-16 20:20:00 [facility] [place] Systolic (mm Hg) 2021-12-16 20:20:00 Heath [facility] [place] Diastolic (mm Hg) 2021-12-16 20:20:00 [facility] [place] Temperature Oral (F) 2021-12-16 20:20:00 97.3 F [facility] Heart Rate 2021-12-15 08:58:06 [facility] Systolic [...] [facility] BMI Calculated 2021-12-15 03:03:00 [facility] [place] Temperature Oral (F) 2021-12-15 01:20:46 97.4 F [facility] Systolic (mm Hg) 2021-12-15 01:20:42 [facility] [place] Diastolic (mm Hg) 2021-12-15 01:20:42 [facility] [place] Respitory Rate 2021-12-15 00:45:00 [facility] [place] Height 2021-12-15 00:13:00 172.72 cm [facility] BMI Calculated 2021-12-15 00:13:00 [facility] [place] Weight 2021-12-15 00:13:00 [facility] [place] Respitory Rate 2021-12-14 23:56:00 [facility] [place] Height 2021-12-14 23:34:00 172.72 cm [facility] Weight 2021-12-14 23:34:00 [facility] Rate 2021-12-14 23:18:00 [facility] [place] BMI Calculated 2021-12-14 19:29:00 [facility] [place] Temperature Oral (F) 2021-12-04 14:04:00 97.9 F [facility] Heart Rate 2021-12-04 14:04:00 [facility]itory Rate 2021-12-04 14:04:00 [facility] [place] Systolic (mm Hg) 2021-12-04 14:04:00 Heath [facility] [place] Diastolic (mm Hg) 2021-12-04 14:04:00 [facility] [place] Temperature Oral (F) 2021-12-04 12:30:00 97.9 F [facility] Heart Rate 2021-12-04 12:30:00 [facility] Rate 2021-12-04 12:30:00 [facility] [place] Systolic (mm Hg) 2021-12-04 12:30:00 Heath [facility] [place] Diastolic (mm Hg) 2021-12-04 12:30:00 Mem o[facility] [place] Respitory Rate 2021-12-04 11:45:00 [facility] [place] Heart Rate 2021-12-04 11:45:00 [facility] Temperature Oral (F) 2021-12-04 11:45:00 98.4 F [facility] Systolic (mm Hg) 2021-12-04 04:57:00 Heath [facility] [place] Diastolic (mm Hg) 2021-12-04 04:57:00 Mem [facility] Weight 2021-12-03 23:22:00 [facility] Respitory Rate 2021-11-27 00:01:00 [facility] [place] Heart Rate 2021-11-26 21:50:00 [facility] Respitory Rate 2021-11-26 21:50:00 [facility] [place] Systolic (mm Hg) 2021-11-26 21:50:00 [facility] Diastolic (mm Hg) 2021-11-26 21:50:00 [facility] Temperature Oral (F) 2021-11-26 18:40:00 98.0 F [facility] Heart Rate 2021-11-26 18:40:00 [facility] Respitory Rate 2021-11-26 18:40:00 [facility] [place] Systolic (mm Hg) 2021-11-26 18:40:00 Heath [facility] [place] Diastolic (mm Hg) 2021-11-26 18:40:00 Mem o[facility] [place] Heart Rate 2021-11-26 16:41:35 [facility] Systolic (mm Hg) 2021-11-26 16:41:27 Heath [facility] [place] Diastolic (mm Hg) 2021-11-26 16:41:27 [facility] [place] Temperature Oral (F) 2021-11-26 16:40:28 98.4 F [facility] Temperature Oral (F) 2021-11-26 13:00:17 98.3 F [facility] Height 2021-11-25 03:24:00 177.8 cm [facility] BMI Calculated 2021-11-25 03:24:00 Memkerline al [place] Weight 2021-11-25 03:24:00 [facility] Procedures Procedure Date / Time Performing Clinician Source Performed CT ABDOMEN PELVIS WO 2022-10-31 14:52:20 Ronnie Ayala [facility] CONTRAST [facility] Branch CT THORAX WO CONTRAST 2022-10-31 14:52:20 Ronnie Ayala [facility] LIPASE 2022-10-31 14:22:00 Ronnie Ayala [facility] COMP. METABOLIC PANEL 2022-10-31 14:22:00 Ronnie Ayala [facility] ([id number]) [facility] CBC WITH DIFF 2022-10-31 14:22:00 Ronnie Ayala [facility] NOTICE OF PRIVACY 2022-10-31 13:54:24 Doctor Unassigned, [facility] PRACTICES [facility] CONSENT/REFUSAL FOR 2022-10-31 13:53:28 Doctor Unassigned, [facility] DIAGNOSIS AND TREATMENT [facility] POCT GLUCOSE 2022-10-15 16:16:00 Mine Mosqueda [facility] (AUTOMATED) Medical Branch XR CHEST 1 VW 2022-10-15 14:27:00 [facility]oul [facility] POCT GLUCOSE 2022-10-15 12:24:00 Dominic [facility] (AUTOMATED) [facility] BASIC METABOLIC PANEL 2022-10-15 09:26:00 Marianna Barbour [facility] (NA, K, CL, CO2, Medical [facility] GLUCOSE, BUN, CREATININE, CA) CBC WITH DIFF 2022-10-15 09:26:00 Marianna Barbour [facility] PREPARE PACKED RBC 2022-10-15 05:15:09 Anita Sanchez [facility] POCT GLUCOSE 2022-10-15 01:54:00 Mine Mosqueda [facility] (AUTOMATED) [facility] XR CHEST 1 VW 2022-10-15 01:09:38 Abdoul [facility] IR THORACENTESIS WITH 2022-10-14 23:00:51 Marianna Barbour [facility] IMAGING [facility] Branch GLUCOSE BODY FLUID 2022-10-14 22:53:00 Marianna Barbour [facility] T.PROTEIN BODY FLUID 2022-10-14 22:53:00 Marianna Barbour [facility] BODY FLUID DIRECT COUNT 2022-10-14 22:53:00 Marianna Barbour [facility] BODY FLUID 2022-10-14 22:53:00 Marianna Barbour [facility] CULTURE(AEROBIC/ANAEROB [facility] IC) LDH TOTAL BODY FLUID 2022-10-14 22:53:00 Marianna Barbour [facility] XR CHEST 1 VW 2022-10-14 22:38:00 Abdoul [facility] POCT GLUCOSE 2022-10-14 21:38:00 Dominic [facility] (AUTOMATED) Medical Branch HEPATITIS B SURFACE 2022-10-14 19:06:00 Anita Sanchez [facility] ANTIBODY Medical Branch HEPATITIS B SURFACE 2022-10-14 19:06:00 Anita Sanchez [facility] ANTIGEN Medical Branch POCT GLUCOSE 2022-10-14 16:36:00 Mine Mosqueda [facility] (AUTOMATED) Medical Branch POCT GLUCOSE 2022-10-14 12:50:00 Dominic [facility] (AUTOMATED) Medical Branch PHOSPHORUS 2022-10-14 08:27:00 Dominic [facility] MAGNESIUM 2022-10-14 08:27:00 Dominic [facility] BASIC METABOLIC PANEL 2022-10-14 08:27:00 Mine Mosqueda [facility] (NA, K, CL, CO2, Medical Branch GLUCOSE, BUN, CREATININE, CA) VANCOMYCIN TROUGH 2022-10-14 08:27:[address] [facility] CBC WITH DIFF 2022-10-14 08:27:00 Mine Mosqueda [facility] DISCLOSURE AND CONSENT, 2022-10-14 05:01:00 Doctor Unassigned, [facility] MED[facility] SURGICAL [facility] PROCEDURES POCT GLUCOSE 2022-10-14 03:13:00 Mine Mosqueda [facility] (AUTOMATED) Medical Branch POCT GLUCOSE 2022-10-13 21:41:00 Mine Mosqueda [facility] (AUTOMATED) Medical Branch POCT GLUCOSE 2022-10-13 16:25:00 Mine Mosqueda [facility] (AUTOMATED) Medical Branch POCT GLUCOSE 2022-10-13 12:34:00 Mine Mosqueda [facility] (AUTOMATED) [facility] BASIC METABOLIC PANEL 2022-10-13 09:16:00 Mine Mosqueda [facility] (NA, K, CL, CO2, Medical Branch GLUCOSE, BUN, CREATININE, CA) CBC WITH DIFF 2022-10-13 09:16:00 Dominic [facility] POCT GLUCOSE 2022-10-13 01:24:00 Dominic [facility] (AUTOMATED) Medical Branch POCT GLUCOSE 2022-10-12 21:23:00 Dominic [facility] (AUTOMATED) [facility] TRANSFUSE PACKED RBC 2022-10-12 18:39:00 Luis A [facility] PREPARE PACKED RBC 2022-10-12 18:29:53 Luis A [facility] POCT GLUCOSE 2022-10-12 16:47:00 Dominic [facility] (AUTOMATED) [facility] BLOOD CULTURE SCREEN 2022-10-12 15:52:00 Luis A [facility] BLOOD CULTURE SCREEN 2022-10-12 15:40:00 Luis A [facility] XR CHEST 1 VW 2022-10-12 14:31:35 Dominic [facility] POCT GLUCOSE 2022-10-12 12:44:00 Mine Mosqueda [facility] (AUTOMATED) [facility] Branch PHOSPHORUS 2022-10-12 09:58:00 Dominic [facility] MAGNESIUM 2022-10-12 09:58:00 Dominic [facility] TROPONIN I 2022-10-12 09:58:00 Tim Alejandro [facility] BASIC METABOLIC PANEL 2022-10-12 09:58:00 Mine Mosqueda [facility] (NA, K, CL, CO2, Medical Branch GLUCOSE, BUN, CREATININE, CA) LIPID PANEL 2022-10-12 09:58:00 Tim Alejandro [facility] ([id number])(TOTAL Medical Branch CHOLESTEROL, TRIGLYCERIDES, HDL) CBC WITH DIFF 2022-10-12 09:58:00 Dominic [facility] N-TERMINAL PRO-BNP 2022-10-12 09:58:[address] [facility] POCT GLUCOSE 2022-10-12 06:42:00 Mine Mosqueda [facility] (AUTOMATED) [facility] TROPONIN I 2022-10-12 03:10:00 Luis A [facility] POCT GLUCOSE 2022-10-12 01:19:00 Mine Mosqueda [facility] (AUTOMATED) Medical Branch OCCULT (GUAIAC) BLOOD 2022-10-11 21:58:00 [facility] POCT GLUCOSE 2022-10-11 21:19:00 Mine Mosqueda [facility] (AUTOMATED) [facility] Branch IRON 2022-10-11 18:20:00 Mine Mosqueda [facility] TOTAL IRON BINDING 2022-10-11 18:20:00 Mine Mosqueda [facility] CAPACITY Medical Branch TROPONIN I 2022-10-11 18:20:00 Luis A [facility] RETICULOCYTES AUTOMATED 2022-10-11 18:20:00 Dominic [facility] PROCALCITONIN 2022-10-11 18:20:00 Mine Mosqueda [facility] POCT GLUCOSE 2022-10-11 16:58:00 Dominic [facility] (AUTOMATED) [facility] POCT GLUCOSE 2022-10-11 16:05:00 Dominic [facility] (AUTOMATED) [facility] ABORH CONFIRMATION (LAB 2022-10-11 15:23:00 Luis A [facility]) [facility] TROPONIN I 2022-10-11 15:08:00 Luis A [facility] POCT GLUCOSE 2022-10-11 14:22:00 Dominic [facility] (AUTOMATED) [facility] TRANSTHORACIC ECHO 2022-10-11 13:32[facility] POCT GLUCOSE 2022-10-11 13:04:00 Mine Mosqueda [facility] (AUTOMATED) [facility] Branch POCT GLUCOSE 2022-10-11 12:04:00 Dominic [facility] (AUTOMATED) [facility] POCT GLUCOSE 2022-10-11 11:21:00 Dominic [facility] (AUTOMATED) [facility] Branch HB ABO GROUPING 2022-10-11 11:20:00 [facility]22-10-11 09:41[facility]00 [facility] MAGNESIUM 2022-10-11 09:41:00 Luis A [facility] TROPONIN I 2022-10-11 09:41:00 [place], [facility] BASIC METABOLIC PANEL 2022-10-11 09:41:00 Luis A [facility] (NA, K, CL, CO2, Medical Branch GLUCOSE, BUN, CREATININE, CA) CBC WITHOUT DIFF 2022-10-11 09:41:00 Luis A [facility] POCT GLUCOSE 2022-10-11 09:41:00 Dominic [facility] (AUTOMATED) [facility] Branch N-TERMINAL PRO-BNP 2022-10-11 09:41:00 [facility] POCT GLUCOSE 2022-10-11 08:43:00 Dominic [facility] (AUTOMATED) Medical Branch POCT GLUCOSE 2022-10-11 07:36:00 Dominic [facility] (AUTOMATED) [facility] Branch POCT GLUCOSE 2022-10-11 06:18:00 Dominic [facility] (AUTOMATED) [facility] Branch POCT GLUCOSE 2022-10-11 05:52:00 Dominic [facility] (AUTOMATED) Medical Branch POCT GLUCOSE 2022-10-11 04:24:00 Dominic [facility] (AUTOMATED) [facility] Branch POCT GLUCOSE 2022-10-11 03:33:00 Dominic [facility] (AUTOMATED) [facility] Branch POCT GLUCOSE 2022-10-11 02:08:00 Dominic [facility] (AUTOMATED) Medical Branch POCT GLUCOSE 2022-10-11 01:08:00 Dominic [facility] (AUTOMATED) [facility] MRSA / MSSA SCREEN BY 2022-10-11 00:16:00 [facility]ic [facility] 2022-10-10 23:43:37 Dom [facility] POCT GLUCOSE 2022-10-10 23:20:00 Dominic [facility] (AUTOMATED) [facility] Branch POCT GLUCOSE 2022-10-10 21:42:00 Dom [facility] (AUTOMATED) [facility] POCT GLUCOSE 2022-10-10 21:25:00 Dom [facility] (AUTOMATED) [facility] HB ECG ROUTINE & RHYTHM 2022-10-10 21:20:02 Fabian Fernandes [facility] STRIP [facility] AC PANEL 21 + LACTIC 2022-10-10 20:50:00 Fabian Fernandes [facility] ACID [facility] POCT GLUCOSE 2022-10-10 20:32:00 Fabian Fernandes [facility] (AUTOMATED) [facility] CT THORAX WO CONTRAST 2022-10-10 20:31:25 Fabian Fernandes [facility] CT ABDOMEN PELVIS WO 2022-10-10 20:30:49 Fabian Fernandes [facility] CONTRAST [facility] CT HEAD WO CONTRAST 2022-10-10 20:30:49 Fabian Fernandes [facility] POCT GLUCOSE 2022-10-10 19:43:00 Fabian Fernandes [facility] (AUTOMATED) [facility] XR CHEST 1 VW 2022-10-10 19:40:00 Fabian Frenandes [facility] BLOOD CULTURE SCREEN 2022-10-10 19:38:00 Fabian Fernandes [facility] BLOOD CULTURE WORKUP 2022-10-10 19:38:00 Fabian Fernandes [facility] GRAM POSITIVE BLOOD 2022-10-10 19:38:00 Fabian Fernandes [facility] PATHOGENS DNA Medical Branch PROBE-AEROBIC ASSIGNMENT OF BENEFITS 2022-10-10 19:11:20 Doctor Unassigned, [facility] CONSENT/REFUSAL FOR 2022-10-10 19:10:59 Doctor Unassigned, [facility] DIAGNOSIS AND TREATMENT [facility] TROPONIN I 2022-10-10 19:08:00 Fabian Fernandes [facility] COMP. METABOLIC PANEL 2022-10-10 19:08:00 Fabian Fernandes [facility] ([id number]) [facility] CBC WITH DIFF 2022-10-10 19:08:00 Fabian Fernandes [facility] GLYCOSYLATED HEMOGLOBIN 2022-10-10 19:08:00 Mine Mosqueda [facility] (A1C) [facility] N-TERMINAL PRO-BNP 2022-10-10 19:08:00 Fabian Fernandes [facility] y [facility] POCT GLUCOSE 2022-10-10 18:58:00 Fabian Fernandes [facility] (AUTOMATED) [facility] [id number] 2021-10-18 00:00:00 Andrade day Encounters Start End Encounter Admission Attending Care Care Encounter Source Date/Time Date/Time Type Type Clinicians Facility Department ID 2022-11-10 Outpatient [facility], STLMLC STLMLC [id number] [place] 11:36:01 [place] [address] [facility] 2022-05-20 Outpatient [facility], STLMLC STLMLC [id number] Common 08:24:01 [place] [address] [facility] 2022-05-15 Outpatient [facility], STLMLC STLMLC [id number] [place] 08:53:00 [place] [address] [facility] 2022-05-11 Outpatient [facility], STLMLC STLMLC [id number] [place] 14:49:00 [place] [address] [facility] 2022-05-08 Outpatient [facility], STLMLC STLMLC [id number] [place] 10:15:01 [place] [address] [facility] 2022-05-07 Outpatient [facility], STLMLC STLMLC [id number] [place] 11:53:00 [place] [address] [facility] 2022-02-18 Outpatient [facility], STLMLC STLMLC [id number] Common 12:05:01 [place] [facility] 2022-01-01 Outpatient [facility], STLMLC STLMLC [id number] [place] 10:24:01 [place] [address] [facility] 2021-12-29 Outpatient [facility], STLMLC STLMLC [id number] Common 08:34:00 [place] [facility] 2021-12-16 Outpatient [facility] [id number] CT 14:42:21 [id number] Health 2021-11-19 Outpatient [facility], STLMLC STLMLC [id number] Common 08:42:01 [place] [facility] 2021-11-03 Outpatient [facility], STLMLC STLMLC [id number] Common 10:33:01 [place] [facility] 2021-10-15 Outpatient 3 [id number] ENCPL REF [id number] [facility] 08:19:25 0518 Health Rehabil itation [facility] d 2021-10-14 Outpatient 3 [id number] ENCPL REF [id number] [facility] 11:59:03 0517 [facility] 2021-06-25 Outpatient [facility], STLMLC STLMLC [id number] [place] 14:22:06 [place] [address] [facility] 2021-06-25 Outpatient [facility], STLMLC STLMLC [id number] [place] 14:13:51 [place] [address] [facility] 2021-06-25 Outpatient [facility], STLMLC STLMLC [id number] [place] 13:38:12 [place] [address] [facility] 2021-06-25 Outpatient [facility], STLMLC STLMLC [id number] [place] 12:43:29 [place] [address] [facility] 2021-06-25 Outpatient [facility], STLMLC STLMLC [id number] Common 12:42:27 [place] [address] [facility] 2021-06-25 Outpatient [facility], STLMLC STLMLC [id number] [place] 12:31:12 [place] [address] [facility] 2021-06-25 Outpatient [facility], STLMLC STLMLC [id number] [place] 12:31:03 [place] [address] [facility] 2021-06-25 Outpatient [facility], STLMLC STLMLC [id number] [place] 12:30:21 [place] [address] [facility] 2021-06-25 Outpatient [facility], STLMLC STLMLC [id number] [place] 11:00:43 [place] [address] [facility] 2022-10-31 2022-10-31 Emergency X STEPHANIE AYALA ERT [id number] Univers 09:00:00 12:40:00 RONNIE leal [facility] 2022-10-31 2022-10-31 Emergency STEPHANIE Ayala [id number] Univers 09:00:00 12:40:00 Ronnie CARRASQUILLO [id number] i Josh [id number] [facility] [id number] [facility] 084 Branch 2022-10-16 2022-10-16 Transition SHAJI Davis [id number] Univers 00:00:00 00:00:00 of Care Ubaldo VALLE [id number] ity of [place] [id number] [facility] [id number] [facility] 403 Branch 2022-10-10 2022-10-15 Inpatient X [facility] [id number] Univers 13:54:00 14:40:00 MARIANNA ity of [facility] 2022-10-10 2022-10-15 Hospital Fabian Fernandes [facility] [id number] Univers 13:54:00 14:40:00 Encounter Mine Mosqueda [id number] [facility] [id number] [facility] [id number] [facility] 080 Branch 2022-07-03 2022-07-03 (TEL) STLMLC STLMLC [id number] Co mmon 00:00:00 00:00:00 [facility] 2022-06-08 2022-06-08 (TEL) STLMLC STLMLC [id number] Co mmon 00:00:00 00:00:00 [facility] 2022-05-06 2022-05-06 (TEL) STLMLC STLMLC [id number] Co mmon 00:00:00 00:00:00 [facility] 2022-04-03 2022-04-03 (TEL) STLMLC STLMLC [id number] Co mmon 00:00:00 00:00:00 [facility] 2022-02-17 2022-02-17 (TEL) STLMLC STLMLC [id number] Co mmon 00:00:00 00:00:00 [facility] 2022-02-17 2022-02-17 OFFICE STLMLC STLMLC [id number] Co mmon 00:00:00 00:00:00 VISIT [facility] PT - CHI LEVEL 4 [facility] 2022-01-06 2022-01-06 OFFICE STLMLC STLMLC [id number] Co mmon 00:00:00 00:00:00 [facility]IT [facility] PT - CHI LEVEL 4 [facility] 2022-01-02 2022-01-02 Emergency nullFlavo [facility] [id number] Memoria 17:12:00 21:33:00 r [place] 03 [facility] 2022-01-02 2022-01-02 Emergency nullFlavo [facility] [id number] Memoria 17:12:00 21:33:00 r [place] 03 [facility] 2022-01-02 2022-01-02 Emergency E JANE LONG MHBL [id number] MHBL 12:12:00 16:33:00 CAREY 2022-01-02 2022-01-02 Outpatient QUYNH Long MHPL [id number] 12:12:00 16:33:00 Carey R 03 2022-01-01 2022-01-01 (TEL) STLMLC STLC [id number] Co mmon 00:00:00 00:00:00 [facility] 2021-12-31 2021-12-31 (TEL) STLMLC STLMLC [id number] Co mmon 00:00:00 00:00:00 [facility] 2021-12-14 2021-12-17 Inpatient nullFlavo [facility] [id number] Memoria 19:19:49 03:14:00 r [place] 02 [facility] 2021-12-14 2021-12-17 Inpatient nullFlavo [facility] [id number] Memoria 19:19:49 03:14:00 r Booker 02 [facility] 2021-12-14 2021-12-16 Inpatient E JANE BRUNO MED [id number] MHBL 18:26:00 22:14:00 ZACHARY 2021-12-14 2021-12-16 Outpatient RADHA BrunoPL MHPL [id number] 14:19:49 22:14:00 Zachary 2021-12-14 2021-12-14 Outpatient QUYNH Velazquez MHPL [id number] 14:19:49 14:19:49 [facility] 2021-12-03 2021-12-04 Emergency nullFlavo [facility] [id number] Memoria 23:19:26 14:53:00 r [place] [facility] 2021-12-03 2021-12-04 Emergency [facility] [id number] Memoria 23:19:26 14:53:00 r [place] [facility] 2021-12-03 2021-12-04 Outpatient Fadowole, MHPL MHPL [id number] 18:19:26 09:53:[address] 2021-12-03 2021-12-04 Emergency E FADOWOLE, MHBL MHBL 7501 MHBL 18:19:00 09:53:00 PEPPER 2021-12-01 2021-12-01 Outpatient COH COH PIJFJKR ZIB COH 00:00:00 00:00:00 [id number] 2021-11-25 2021-11-27 Observatio [facility] [id number] Memoria 03:23:10 00:12:00 n r [place] 00 [facility] 2021-11-25 2021-11-27 Observatio [facility] 3819 [id number] Memoria 03:23:10 00:12:00 n r [place] 00 [facility] 2021-11-25 2021-11-26 Outpatient E AJFRANCISCO JDE, JANE MED 7500 BL 10:37:00 19:12:00 MONSE 2021-11-24 2021-11-26 Outpatient Ajibade, MHPL PL [id number] 2542 22:23:10 19:12:00 Monse [facility] 2021-11-24 2021-11-26 Outpatient Ajibade, MHPL PL [id number] 22:23:10 19:12:00 [facility] 2021-11-24 2021-11-24 (TEL) STLMLC STLMLC [id number] Co mmon 00:00:00 00:00:00 [facility] 2021-10-16 2021-11-03 Inpatient 3 NATHANIEL, ENCPL GILDA [id number] 22 Encompa 23:26:00 21:40:00 [facility]ILANGO [facility] Lynsey d 2021-11-03 2021-11-03 OFFICE STLMLC STLMLC [id number] Co mmon 00:00:00 00:00:00 VISIT NEW Spir it PT LEVEL 4 - [facility] 2021-10-17 2021-10-17 (TEL) STLMLC STLMLC [id number] Co mmon 00:00:00 00:00:[address] [facility] 2021-08-12 2021-08-12 (TEL) STLMLC STLMLC [id number] Co mmon 00:00:00 00:00:00 [facility] 2021-07-28 2021-07-28 OFFICE STLMLC STLMLC [id number] Co mmon 00:00:00 00:00:00 VISIT Spirit ESTAB PT - [facility] LEVEL 4 [facility] 2021-07-28 2021-07-28 SUB ANNUAL STLMLC STLMLC [id number] Common 00:00:00 00:00:00 MCR [facility] VIS[facility] 2021-06-12 2021-06-12 (TEL) STLMLC STLMLC [id number] Co mmon 00:00:00 00:00:00 [facility] 2021-05-21 2021-05-21 (TEL) STLMLC STLMLC [id number] Co mmon 00:00:00 00:00:00 [facility] 2021-04-28 2021-04-28 OFFICE STLMLC STLMLC [id number] Co mmon 00:00:00 00:00:00 VISIT Spirit ESTAB PT - [facility] LEVEL 4 [facility] 2021-03-26 2021-03-26 (TEL) STLMLC STLMLC [id number] Co mmon 00:00:00 00:00:00 [facility] 2021-03-12 2021-03-12 OFFICE STLMLC STLMLC [id number] Co mmon 00:00:00 00:00:00 VISIT Spirit ESTAB PT - [facility] LEVEL 4 [facility] 2021-02-10 2021-02-10 Outpatient STLMLC STLMLC [id number] Common 00:00:00 00:00:00 [facility] 2021-01-31 2021-01-31 Outpatient STLMLC STLMLC [id number] Common 00:00:00 00:00:00 [facility] 2021-01-13 2021-01-13 Outpatient STLMLC STLMLC [id number] Common 00:00:00 00:00:00 [facility] 2021-01-08 2021-01-08 Outpatient STLMLC STLMLC [id number] Common 00:00:00 00:00:00 [facility] 2020-12-31 2020-12-31 Outpatient STLMLC STLMLC [id number] Common 00:00:00 00:00:00 [facility] 2020-12-11 2020-12-11 Outpatient STLMLC STLMLC [id number] Common 00:00:00 00:00:00 [facility] 2020-08-19 2020-08-19 Outpatient STLMLC STLMLC [id number] Common 00:00:00 00:00:00 [facility] 2020-07-19 2020-07-19 Outpatient STLMLC STLMLC [id number] Common 00:00:00 00:00:00 [facility] 2020-07-15 2020-07-15 Outpatient STLMLC STLMLC [id number] Common 00:00:00 00:00:00 [facility] 2020-06-14 2020-06-14 Outpatient STLMLC STLMLC [id number] Common 00:00:00 00:00:00 [facility] 2020-06-05 2020-06-05 Outpatient STLMLC STLMLC [id number] Common 00:00:00 00:00:00 [facility] 2020-04-23 2020-04-23 Outpatient STLMLC STLMLC [id number] Common 00:00:00 00:00:00 [facility] 2020-04-22 2020-04-22 Outpatient STLMLC STLMLC [id number] Common 00:00:00 00:00:00 [facility] 2020-04-17 2020-04-17 Outpatient STLMLC STLMLC [id number] Common 00:00:00 00:00:00 [facility] 2020-01-15 2020-01-15 Out[facility] [id number] Common 10:45:00 10:45:[address] [facility] 2019-10-16 2019-10-16 [facility] [id number] Common 13:00:00 13:00:[address] [facility] 2019-07-17 2019-07-17 [facility] [id number] Common 13:45:00 13:45:[address] [facility] 2019-06-14 2019-06-14 Out[facility] [id number] Common 11:45:00 11:45:[address] [facility] 2019-06-07 2019-06-07 [facility] [id number] Common 11:57:00 11:57:[address] [facility] 2019-05-17 2019-05-17 [facility] [id number] Common 11:30:00 11:30:[address] [facility] 2019-04-24 2019-04-24 [facility] [id number] Common 14:52:00 14:52:[address] [facility] 2019-04-19 2019-04-19 Out[facility] [id number] Common 14:45:00 14:45:[address] [facility] 2019-04-06 2019-04-06 Out[facility] [id number] Common 08:35:00 08:35:[address] [facility] 2019-04-04 2019-04-04 Outpatient Cornelio Grimest [id number] Common 08:34:00 08:34:[address] [facility] 2019-03-08 2019-03-08 Outpatient Cornelio Grimest [id number] Common 10:57:00 10:57:[address] [facility] 2019-02-20 2019-02-20 Outpatient Cornelio Grimest [id number] Common 14:00:00 14:00:[address] [facility] Results Test Description Test Time Test Comments Results Result Comments Source COMP. METABOLIC PANEL (82782) 2022-10-31 15:25:34 Test Item Value Reference Range Interpretation Comme nts NA (test code = 2892004670) 136 mmol/L 135-145 K (test code = 3040959394) 4.7 mmol/L 3.5-5.0 CL (test code = 3921655415) 96 mmol/L 98-108 L CO2 TOTAL (test code = 9920302243) 31 mmol/L 23-31 AGAP (test code = 0842008536) 9 2-16 BUN (test code = 3468277526) 26 mg/dL 7-23 H GLUCOSE (test code = 7677164505) 190 mg/dL 70-110 H CREATININE (test code = 2.56 mg/dL 0.60-1.25 H 4590013738) TOTAL BILI (test code = 0.9 mg/dL 0.1-1.0 2944109883) CALCIUM (test code = 4989893789) 9.6 mg/dL 8.6-10.6 T PROTEIN (test code = 0193198379) 6.4 g/dL 6.3-8.2 ALBUMIN (test code = 2766467403) 3.5 g/dL 3.5-5.0 ALK PHOS (test code = 1214570015) 307 U/L 34-122 H ALTv (test code = 1742-6) 27 U/L 5-50 AST(SGOT) (test code = 6646960582) 28 U/L 13-40 eGFR (test code = 2438538801) 24.5 mL/min/1.73m2 MALIK (test code = MALIK) [...] tests). Lab Interpretation (test code = Abnormal 81408-4) [facility] 15:25:34 Test Item Value Reference Range Interpretation Comments LIPASE (test code = 6672932333) 212 U/L 0-220 Lab Interpretation (test code = Normal 30328-2) [facility] WITH [id number] 15:12:12 Test Item Value Reference Range Interpretation Comments WBC (test code = 4.75 See_Comment [Automated 0469-2) message] The sy stem which generated this [...] RDW-SD (test code = 45.4 fL 38.5-51.6 60036-5) RDW-CV (test code = 14.3 % 12.1-15.4 788-0) PLT (test code = 191 See_Comment [Automated 777-3) message] The sy stem which generated this result transmitted reference range : 150 - 328 10*3/ ?L. The reference r samantha was not used to interpret this result as normal/abnormal . MPV (test code = 10.1 fL 9.8-13.0 71395-2) NRBC/100 WBC (test 0.0 See_Comment [Automat ed code = 9628550705) message] The system which generated this result transmitted reference range : 0.0 - 10.0 /100 WBCs. The refer ence range was not u sed to interpret th is result as normal/abnormal . NRBC x10^3 (test code See_Comment [Auto mated = 3252970861) message] The s ystem which generated this result transmitted reference range : 10*3/?L. The reference range was not used to interpret this result as normal/abnormal . GRAN MAT (NEUT) % 62.8 % (test code = 770-8) IMM GRAN % (test code 0.60 % = 9553827237) LYMPH % (test code = 23.2 % 736-9) MONO % (test code = 10.9 % 5905-5) EOS % (test code = 2.3 % 713-8) BASO % (test code = 0.2 % 706-2) GRAN MAT x10^3(ANC) 2.98 10*3/uL 1.99-6.95 (test code = 4913134496) IMM GRAN x10^3 (test 0.03 10*3/uL 0.00-0.06 code = 7404761974) LYMPH x10^3 (test code 1.10 10*3/uL 1.09-3.23 = 731-0) MONO x10^3 (test code 0.52 10*3/uL 0.36-1.02 = 742-7) EOS x10^3 (test code = 0.11 10*3/uL 0.06-0.53 711-2) BASO x10^3 (test code 0.01-0.09 = 704-7) Lab Interpretation Abnormal (test code = 93603-0) [facility] GLUCOSE (AUTOMATED)2022-10-15 16:18:07 Test Item Value Reference Range Interpretation Comments POCT GLU (test code = 3783851230) 131 mg/dL 70-110 H Lab Interpretation (test code = Abnormal 27102-2) [facility] GLUCOSE (AUTOMATED)2022-10-15 12:27:02 Test Item Value Reference Range Interpretation Comments POCT GLU (test code = 9275021887) 220 mg/dL 70-110 H Lab Interpretation (test code = Abnormal 19020-1) [facility] Packed RBC (in units), 2 Units 2022-10-15 05:15:09 Test Item Value Reference Range Interpretation Comments Cross Match Result Compatible (test code = 4409) ISBT Blood Type Code 6200 (test code = 823785) Unit Blood Type (test A Pos code = 4410) Unit Number (test [id number] code = 4411) Blood Expiration Date 321812731056 & Time (test code = 945697) Status Information Released (test code = 4412) Product Red Blood Cells Identification (test code = 4413) Product Code (test [id number] Performed at [facility] code = 4414) Laboratory Services - [facility] [address] [place] [id number] Free: [phone] A No. [id number] [facility] GLUCOSE (AUTOMATED)2022-10-15 01:55:15 Test Item Value Reference Range Interpretation Comments POCT GLU (test code = 5290047494) 152 mg/dL 70-110 H Lab Interpretation (test code = Abnormal 04942-9) [facility] B Surface Antibody (HBsAb)2022-10-15 00:05:17 Test Item Value Reference Range Interpretation Comments HBsAB (test code = Negative 1320587288) HBsAb 3.80 mIU/mL Semi-Quantitative (test code = 9438016093) MALIK (test code = Interpretation: MALIK) ?Hepatitis B Surface Antibody ? Negative - Patient is considered to be not immune to infection with HBV. ? ? Positive - Anti-HBs detected at greater than or equal to 12 mIU/mL. ?Patient is considered to be immune to infection with HBV. ? [facility] B Surface Antigen (HBsAg)2022-10-14 23:47:58 Test Item Value Reference Range Interpretation Comments HBsAg Semi-Quantitative (test code = 0.09 Negative 5195-3) [facility] GLUCOSE (AUTOMATED)2022-10-14 21:41:48 Test Item Value Reference Range Interpretation Comments POCT GLU (test code = 9240089298) 118 mg/dL 70-110 H Lab Interpretation (test code = Abnormal 61675-3) [facility] GLUCOSE (AUTOMATED)2022-10-14 16:47:29 Test Item Value Reference Range Interpretation Comments POCT GLU (test code = 5563210803) 132 mg/dL 70-110 H Lab Interpretation (test code = Abnormal 05519-2) [facility] [id number] 14:16:04 Test Item Value Reference Range Interpretation Comments Blood Culture-Aerobic Culture positive. No growth AA P revious (test code = 00262-9) See Blood Culture p reliminary Workup for verified result additional was Culture In information. Progress on 10/10/2022 at 19 01 CDTPrevious preliminary verified result was No growth a t 24 hours on 10/11/2022 at 16 01 CDT Blood No organisms No growth Previous Culture-Anaerobic isolated preliminar y (test code = 79954-1) verifi ed result was Culture In Progress on 10/10/2022 at 19 01 CDTPrevious preliminary verified result was No growth a t 24 hours on 10/11/2022 at 16 01 CDTPrevious preliminary verified result was Culture In Progress on 10/12/2022 at 11 51 CDT Lab Interpretation Abnormal (test code = 44984-5) [facility] [id number] 14:16:04 Test Item Value Reference Range Interpretation Comments Blood Culture-Aerobic Culture positive. No growth AA P revious (test code = 30132-2) See Blood Culture p reliminary Workup for verified result additional was Culture In information. Progress on 10/10/2022 at 19 01 CDTPrevious preliminary verified result was No growth a t 24 hours on 10/11/2022 at 16 01 CDT Blood No organisms No growth Previous Culture-Anaerobic isolated preliminar y (test code = 26130-6) verifi ed result was Culture In Progress on 10/10/2022 at 19 01 CDTPrevious preliminary verified result was No growth a t 24 hours on 10/11/2022 at 16 01 CDT Lab Interpretation Abnormal (test code = 93302-1) [facility] GLUCOSE (AUTOMATED)2022-10-14 12:54:35 Test Item Value Reference Range Interpretation Comments POCT GLU (test code = 3793525032) 221 mg/dL 70-110 H Lab Interpretation (test code = Abnormal 09780-6) [facility] GLUCOSE (AUTOMATED)2022-10-14 03:16:56 Test Item Value Reference Range Interpretation Comments POCT GLU (test code = 2830167528) 129 mg/dL 70-110 H Lab Interpretation (test code = Abnormal 73871-1) [facility] GLUCOSE (AUTOMATED)2022-10-13 21:44:17 Test Item Value Reference Range Interpretation Comments POCT GLU (test code = 4742695863) 95 mg/dL 70-110 Lab Interpretation (test code = Normal 39949-9) [facility] GLUCOSE (AUTOMATED)2022-10-13 16:27:34 Test Item Value Reference Range Interpretation Comments POCT GLU (test code = 3833930552) 167 mg/dL 70-110 H Lab Interpretation (test code = Abnormal 50369-7) [facility] GLUCOSE (AUTOMATED)2022-10-13 12:36:25 Test Item Value Reference Range Interpretation Comments POCT GLU (test code = 7906774573) 169 mg/dL 70-110 H Lab Interpretation (test code = Abnormal 68349-1) [facility] GLUCOSE (AUTOMATED)2022-10-13 01:25:21 Test Item Value Reference Range Interpretation Comments POCT GLU (test code = 3849698253) 142 mg/dL 70-110 H Lab Interpretation (test code = Abnormal 39573-4) [facility] POSITIVE BLOOD PATHOGENS DNA [id number] 21:42:17 Test Item Value Reference Range Interpretation Comments Coagulase Negative Positive Negative, See A Staphylococcus (test Comment/Narrative code = 38380-6) MALIK (test code = MALIK) Coagulase negative [...] contact the Antimicrobial Stewardship Program with questions.Pager: ?[phone] Testing included eleven identification and three resistance marker targets. Lab Interpretation Abnormal (test code = 74907-2) [facility] GLUCOSE (AUTOMATED)2022-10-12 21:24:15 Test Item Value Reference Range Interpretation Comments POCT GLU (test code = 3238881810) 124 mg/dL 70-110 H Lab Interpretation (test code = Abnormal 84961-8) [facility] Packed RBC (in units), 1 Units 2022-10-12 18:29:53 Test Item Value Reference Range Interpretation Comments Cross Match Result Compatible (test code = 4409) ISBT Blood Type Code 6200 (test code = 044031) Unit Blood Type (test A Pos code = 4410) Unit Number (test [id number] code = 4411) Blood Expiration Date & Time (test code = 417645) Status Information Issued (test code = 4412) Product Red Blood Cells Identification (test code = 4413) Product Code (test [id number] Performed at [facility] code = 4414) Laboratory Services - [facility] Blood [address] [place] [address]Zjiu Free: [phone] A No. [id number] [facility]2022-10-12 16:49:16 Test Item Value Reference Range Interpretation Comments POCT GLU (test code = 1318527043) 183 mg/dL 70-110 H Lab Interpretation (test code = Abnormal 78845-3) [facility] ClubN-TERMINAL [id number] 14:35:54 Test Item Value Reference Range Interpretation Comments NT-proBNP (test code = 93948 pg/mL <=450 H 9991992108) MALIK (test code = MALIK) Biotin has been reported to cause a negative bias, interpret results relative to patient's use of biotin. Lab Interpretation (test Abnormal code = 46019-1) [facility] ClubTROPONIN [id number] 14:31:03 Test Item Value Reference Range Interpretation Comments TROPONIN I (test code = 0.296 ng/mL <=0.034 H 5094536555) MALIK (test code = MALIK) Reference (Normal) [...] biotin. Lab Interpretation Abnormal (test code = 23530-7) [facility] ClubLIPID PANEL (73364)(TOTAL CHOLESTEROL, TRIGLYCERIDES, HDL)2022-10-12 14:05:04 Test Item Value Reference Range Interpretation Comments CHOL (test code = 2673793383) 61 mg/dL 120-200 L HDL (test code = 2531753418) 19 mg/dL >=40 L HDLC RATIO (test code = 4942565165) 3.2 <=5.0 TRIG (test code = 1317292809) 82 mg/dL 30-170 LDL CHOL (test code = 59552-8) 26 mg/dL <=160 VLDL (test code = 8048360657) 16 mg/dL 5-60 Lab Interpretation (test code = Abnormal 05551-2) [facility]2022-10-12 12:46:09 Test Item Value Reference Range Interpretation Comments POCT GLU (test code = 3240400907) 139 mg/dL 70-110 H Lab Interpretation (test code = Abnormal 81306-4) [facility] ClubBASIC METABOLIC PANEL (NA, K, CL, CO2, GLUCOSE, BUN, CREATININE, CA)2022-10-12 11:04:31 Test Item Value Reference Range Interpretation Comments NA (test code = 136 mmol/L 135-145 2856421611) K (test code = 4.9 mmol/L 3.5-5.0 8209547093) CL (test code = 99 mmol/L 98-108 3766795947) CO2 TOTAL (test code = 27 mmol/L 23-31 5419517429) AGAP (test code = 10 2-16 9470111805) BUN (test code = 54 mg/dL 7-23 H 0265302043) GLUCOSE (test code = 136 mg/dL 70-110 H 5625672047) CREATININE (test code = 4.66 mg/dL 0.60-1.25 H 5923883418) CALCIUM (test code = 9.0 mg/dL 8.6-10.6 7154563570) eGFR (test code = 12.3 mL/min/1.73m2 1838273207) MALIK (test code = MALIK) Association of [...] tests). Lab Interpretation Abnormal (test code = 25731-7) [facility]2023-05-15 11:04:31 Test Item Value Reference Range Interpretation Comments MAGNESIUM (test code = 2385284550) 1.9 mg/dL 1.7-2.4 Lab Interpretation (test code = Normal 70995-9) [facility] ClubPHOSPHORUS2023-05-15 11:04:11 Test Item Value Reference Range Interpretation Comments PHOSPHORUS (test code = 0050062526) 3.8 mg/dL 2.5-5.0 Lab Interpretation (test code = Normal 72579-1) [facility] WITH [id number] 10:44:53 Test Item Value Reference Range Interpretation Comments WBC (test code = 5.14 See_Comment [Automated 0490-2) message] The sy stem which generated this [...] RDW-SD (test code = 46.5 fL 38.5-51.6 41085-9) RDW-CV (test code = 14.5 % 12.1-15.4 788-0) PLT (test code = 129 See_Comment L [Automated 777-3) message] The sy stem which generated this result transmitted reference range : 150 - 328 10*3/ ?L. The reference r samantha was not used to interpret this result as normal/abnormal . MPV (test code = 9.7 fL 9.8-13.0 L 07753-7) NRBC/100 WBC (test 0.0 See_Comment [Automat ed code = 4224478457) message] The system which generated this result transmitted reference range : 0.0 - 10.0 /100 WBCs. The refer ence range was not u sed to interpret th is result as normal/abnormal . NRBC x10^3 (test code See_Comment [Auto mated = 3254666302) message] The s ystem which generated this result transmitted reference range : 10*3/?L. The reference range was not used to interpret this result as normal/abnormal . GRAN MAT (NEUT) % 70.2 % (test code = 770-8) IMM GRAN % (test code 0.40 % = 8619393222) LYMPH % (test code = 19.3 % 736-9) MONO % (test code = 7.4 % 5905-5) EOS % (test code = 2.3 % 713-8) BASO % (test code = 0.4 % 706-2) GRAN MAT x10^3(ANC) 3.61 10*3/uL 1.99-6.95 (test code = 9897182890) IMM GRAN x10^3 (test 0.00-0.06 code = 5218284785) LYMPH x10^3 (test code 0.99 10*3/uL 1.09-3.23 L = 731-0) MONO x10^3 (test code 0.38 10*3/uL 0.36-1.02 = 742-7) EOS x10^3 (test code = 0.12 10*3/uL 0.06-0.53 711-2) BASO x10^3 (test code 0.01-0.09 = 704-7) Lab Interpretation Abnormal (test code = 34625-5) [facility] GLUCOSE (AUTOMATED)2022-10-12 06:45:05 Test Item Value Reference Range Interpretation Comments POCT GLU (test code = 2430681227) 189 mg/dL 70-110 H Lab Interpretation (test code = Abnormal 46387-8) [facility] GLUCOSE (AUTOMATED)2022-10-12 01:24:37 Test Item Value Reference Range Interpretation Comments POCT GLU (test code = 5073593349) 145 mg/dL 70-110 H Lab Interpretation (test code = Abnormal 22778-5) [facility] GLUCOSE (AUTOMATED)2022-10-11 21:34:09 Test Item Value Reference Range Interpretation Comments POCT GLU (test code = 2267324980) 140 mg/dL 70-110 H Lab Interpretation (test code = Abnormal 90314-4) [facility] GLUCOSE (AUTOMATED)2022-10-11 17:09:13 Test Item Value Reference Range Interpretation Comments POCT GLU (test code = 9676190479) 174 mg/dL 70-110 H Lab Interpretation (test code = Abnormal 00350-9) [facility] GLUCOSE (AUTOMATED)2022-10-11 16:19:41 Test Item Value Reference Range Interpretation Comments POCT GLU (test code = 8764541457) 170 mg/dL 70-110 H Lab Interpretation (test code = Abnormal 28816-3) [facility] GLUCOSE (AUTOMATED)2022-10-11 14:32:59 Test Item Value Reference Range Interpretation Comments POCT GLU (test code = 1342720771) 151 mg/dL 70-110 H Lab Interpretation (test code = Abnormal 01097-1) [facility] GLUCOSE (AUTOMATED)2022-10-11 13:15:13 Test Item Value Reference Range Interpretation Comments POCT GLU (test code = 6472849590) 108 mg/dL 70-110 Lab Interpretation (test code = Normal 04078-7) [facility] GLUCOSE (AUTOMATED)2022-10-11 12:14:37 Test Item Value Reference Range Interpretation Comments POCT GLU (test code = 0452483756) 106 mg/dL 70-110 Lab Interpretation (test code = Normal 98367-4) [facility] GLUCOSE (AUTOMATED)2022-10-11 11:28:53 Test Item Value Reference Range Interpretation Comments POCT GLU (test code = 7622028221) 121 mg/dL 70-110 H Lab Interpretation (test code = Abnormal 41110-2) [facility] GLUCOSE (AUTOMATED)2022-10-11 09:43:44 Test Item Value Reference Range Interpretation Comments POCT GLU (test code = 6685977281) 129 mg/dL 70-110 H Lab Interpretation (test code = Abnormal 85362-4) [facility] GLUCOSE (AUTOMATED)2022-10-11 08:46:38 Test Item Value Reference Range Interpretation Comments POCT GLU (test code = 2080459729) 101 mg/dL 70-110 Lab Interpretation (test code = Normal 97981-9) [facility] GLUCOSE (AUTOMATED)2022-10-11 07:38:35 Test Item Value Reference Range Interpretation Comments POCT GLU (test code = 8292133523) 102 mg/dL 70-110 Lab Interpretation (test code = Normal 34802-5) [facility] GLUCOSE (AUTOMATED)2022-10-11 06:20:36 Test Item Value Reference Range Interpretation Comments POCT GLU (test code = 7061907961) 112 mg/dL 70-110 H Lab Interpretation (test code = Abnormal 82562-8) [facility] GLUCOSE (AUTOMATED)2022-10-11 05:53:46 Test Item Value Reference Range Interpretation Comments POCT GLU (test code = 9569072957) 118 mg/dL 70-110 H Lab Interpretation (test code = Abnormal 86111-9) [facility]32 Test Item Value Reference Range Interpretation Comments POCT GLU (test code = 6230051839) 127 mg/dL 70-110 H Lab Interpretation (test code = Abnormal 06790-5) [facility] GLUCOSE (AUTOMATED)2022-10-11 03:35:04 Test Item Value Reference Range Interpretation Comments POCT GLU (test code = 0188378717) 132 mg/dL 70-110 H Lab Interpretation (test code = Abnormal 89281-7) [facility] GLUCOSE (AUTOMATED)2022-10-11 02:10:18 Test Item Value Reference Range Interpretation Comments POCT GLU (test code = 1174378188) 155 mg/dL 70-110 H Lab Interpretation (test code = Abnormal 83768-0) [facility] (A1C)2022-10-11 01:39:22 Test Item Value Reference Range Interpretation Comments HGB A1C (test code = 7.2 % 4.0-5.7 H 4548-4) MALIK (test code = MALIK) Reference RangesNormal: <5.7%Prediabetes: 5.7 - 6.4%Diabetes: > 6.5% Lab Interpretation (test Abnormal code = 84906-3) [facility] GLUCOSE (AUTOMATED)2022-10-11 01:10:41 Test Item Value Reference Range Interpretation Comments POCT GLU (test code = 2805051689) 156 mg/dL 70-110 H Lab Interpretation (test code = Abnormal 30769-5) [facility] 23:31:02 Test Item Value Reference Range Interpretation Comments POCT GLU (test code = 5604067573) 144 mg/dL 70-110 H Lab Interpretation (test code = Abnormal 27703-8) [facility] GLUCOSE (AUTOMATED)2022-10-10 21:44:27 Test Item Value Reference Range Interpretation Comments POCT GLU (test code = 6005103299) 138 mg/dL 70-110 H Lab Interpretation (test code = Abnormal 44029-5) [facility] GLUCOSE (AUTOMATED)2022-10-10 21:27:07 Test Item Value Reference Range Interpretation Comments POCT GLU (test code = 5698027586) 150 mg/dL 70-110 H Lab Interpretation (test code = Abnormal 27373-0) [facility] + LACTIC [id number] 21:01:36 Test Item Value Reference Range Interpretation Comments PH (test code = 7.31 7.32-7.42 L 4997894234) PCO2 LORENA (test code = 55 See_Comment H [Auto mated 7561514898) message] The sy stem which generated this result transmitted reference range : 41 - 51 mmHg. The reference range was not used to interpret this result as normal/abnormal . PO2 LORENA (test code = 16 See_Comment L [Autom ated 7614902718) message] The sy stem which generated this result transmitted reference range : 25 - 40 mmHg. The reference range was not used to interpret this result as normal/abnormal . HCO3 LORENA (test code = 27 See_Comment [Auto mated 1525639326) message] The sy stem which generated this result transmitted reference range : 24 - 28 mEq/L. The reference range was not used to interpret this result as normal/abnormal . AC VBE(BEAKER) (test 0.6 mEq/L code = 1128692061) THB LORENA (test code = 8.2 g/dL 13.5-18.0 LL 3298024451) %O2HB LORENA (test code = 22.2 % 52.0-63.0 L 4382669321) %COHB LORENA (test code = 0.1 % 0.0-1.5 2835564990) %METHB LORENA (test code = 1.5 % 0.4-1.5 1701078157) VOL%O2 LORENA (test code = 2.6 % 6.0-12.0 L 4545788087) NA (test code = 132 mmol/L 135-145 L 6891887211) K+ (test code = 4.7 mmol/L 3.5-5.0 7340722474) AC CA IONZ (test code = 5.10 mg/dL 4.50-5.30 1711705912) GLUCOSE (test code = 153 mg/dL 70-110 H 8904437868) LACTIC ACID (test code 1.54 mmol/L 0.50-2.20 = 9952590027) Lab Interpretation Abnormal (test code = 23709-0) [facility]-10 20:33:33 Test Item Value Reference Range Interpretation Comments POCT GLU (test code = 9644298037) 137 mg/dL 70-110 H Lab Interpretation (test code = Abnormal 83767-2) [facility] [id number] 20:24:02 Test Item Value Reference Range Interpretation Comments NT-proBNP (test code = 71425 pg/mL <=450 H 1528671178) MALIK (test code = MALIK) Biotin has been reported to cause a negative bias, interpret results relative to patient's use of biotin. Lab Interpretation (test Abnormal code = 03989-1) [facility]. METABOLIC PANEL (28559)2022-10-10 20:18:35 Test Item Value Reference Range Interpretation Comments NA (test code = 136 mmol/L 135-145 4224227108) K (test code = 4.8 mmol/L 3.5-5.0 3988202049) CL (test code = 94 mmol/L 98-108 L 1166544443) CO2 TOTAL (test code = 33 mmol/L 23-31 H 5639987663) AGAP (test code = 9 2-16 6695129464) BUN (test code = 34 mg/dL 7-23 H 4468098736) GLUCOSE (test code = 62 mg/dL 70-110 L 3244804372) CREATININE (test code = 3.14 mg/dL 0.60-1.25 H 6585813308) TOTAL BILI (test code = 0.9 mg/dL 0.1-1.9 3760510271) CALCIUM (test code = 9.4 mg/dL 8.6-10.6 8625689291) T PROTEIN (test code = 6.6 g/dL 6.3-8.2 0562494943) ALBUMIN (test code = 3.6 g/dL 3.5-5.0 6931680920) ALK PHOS (test code = 334 U/L 34-122 H 2285110842) ALTv (test code = 38 U/L 5-50 1742-6) AST(SGOT) (test code = 38 U/L 13-40 2276623364) eGFR (test code = 19.3 mL/min/1.73m2 5779127714) MALIK (test code = MALIK) Association of [...] tests). Lab Interpretation Abnormal (test code = 59716-2) [facility]2022-10-10 19:48:15 Test Item Value Reference Range Interpretation Comments POCT GLU (test code = 5294350355) 50 mg/dL 70-110 LL Lab Interpretation (test code = Abnormal 79888-4) [facility] ClubTROPONIN [id number] 19:44:14 Test Item Value Reference Range Interpretation Comments TROPONIN I (test code = 0.060 ng/mL <=0.034 H 1964098047) MALIK (test code = MALIK) Reference (Normal) [...] biotin. Lab Interpretation Abnormal (test code = 62993-8) [facility] WITH [id number] 19:23:50 Test Item Value Reference Range Interpretation Comments WBC (test code = 7.51 See_Comment [Automated 4890-2) message] The sy stem which generated this [...] RDW-SD (test code = 46.5 fL 38.5-51.6 98858-1) RDW-CV (test code = 14.4 % 12.1-15.4 788-0) PLT (test code = 131 See_Comment L [Automated 777-3) message] The sy stem which generated this result transmitted reference range : 150 - 328 10*3/ ?L. The reference r samantha was not used to interpret this result as normal/abnormal . MPV (test code = 9.2 fL 9.8-13.0 L 47723-0) NRBC/100 WBC (test 0.0 See_Comment [Automat ed code = 3228818181) message] The system which generated this result transmitted reference range : 0.0 - 10.0 /100 WBCs. The refer ence range was not u sed to interpret th is result as normal/abnormal . NRBC x10^3 (test code See_Comment [Auto mated = 0909869775) message] The s ystem which generated this result transmitted reference range : 10*3/?L. The reference range was not used to interpret this result as normal/abnormal . GRAN MAT (NEUT) % 80.2 % (test code = 770-8) IMM GRAN % (test code 0.50 % = 3317126807) LYMPH % (test code = 9.6 % 736-9) MONO % (test code = 8.8 % 5905-5) EOS % (test code = 0.4 % 713-8) BASO % (test code = 0.5 % 706-2) GRAN MAT x10^3(ANC) 6.02 10*3/uL 1.99-6.95 (test code = 9507448155) IMM GRAN x10^3 (test 0.04 10*3/uL 0.00-0.06 code = 7544496683) LYMPH x10^3 (test code 0.72 10*3/uL 1.09-3.23 L = 731-0) MONO x10^3 (test code 0.66 10*3/uL 0.36-1.02 = 742-7) EOS x10^3 (test code = 0.03 10*3/uL 0.06-0.53 L 711-2) BASO x10^3 (test code 0.04 10*3/uL 0.01-0.09 = 704-7) Lab Interpretation Abnormal (test code = 40322-9) [facility]2022-10-10 18:59:49 Test Item Value Reference Range Interpretation Comments POCT GLU (test code = 9958838956) 80 mg/dL 70-110 Lab Interpretation (test code = Normal 85258-7) [facility] [id number] 18:35:00 Test Item Value Reference Range Interpretation Comments Antibody Scrn (test Negative (01/02/22 1:35 code = Antibody Scrn) PM) [facility] [employer] [id number] 18:35:00 Test Item Value Reference Range Interpretation Comments ABO/Rh (test code = ABO/Rh) AB POS [facility] [id number] 18:35:00 Test Item Value Reference Range Interpretation Comments Antibody Scrn (test Negative (01/02/22 1:35 code = Antibody Scrn) PM) [facility] [employer] [id number] 18:35:00 Test Item Value Reference Range Interpretation Comments ABO/Rh (test code = ABO/Rh) AB POS [facility] [employer] [id number] 18:35:00 Test Item Value Reference Range Interpretation Comments Antibody Scrn (test Negative (01/02/22 1:35 code = Antibody Scrn) PM) [facility] [employer] [id number] 18:35:00 Test Item Value Reference Range Interpretation Comments ABO/Rh (test code = ABO/Rh) AB POS [facility] [employer] [id number] 18:35:00 Test Item Value Reference Range Interpretation Comments Antibody Scrn (test Negative (01/02/22 1:35 code = Antibody Scrn) PM) [facility] [employer] [id number] 18:35:00 Test Item Value Reference Range Interpretation Comments ABO/Rh (test code = ABO/Rh) AB POS [facility] [employer] [id number] 18:35:00 Test Item Value Reference Range Interpretation Comments Antibody Scrn (test Negative (01/02/22 1:35 code = Antibody Scrn) PM) [facility] [employer] [id number] 18:35:00 Test Item Value Reference Range Interpretation Comments ABO/Rh (test code = ABO/Rh) AB POS [facility] [employer] [id number] 18:35:00 Test Item Value Reference Range Interpretation Comments Antibody Scrn (test Negative (01/02/22 1:35 code = Antibody Scrn) PM) [facility] [employer] [id number] 18:35:00 Test Item Value Reference Range Interpretation Comments ABO/Rh (test code = ABO/Rh) AB POS [facility] [employer] [id number] 18:35:00 Test Item Value Reference Range Interpretation Comments Antibody Scrn (test Negative (01/02/22 1:35 code = Antibody Scrn) PM) [facility] [employer] [id number] 18:35:00 Test Item Value Reference Range Interpretation Comments ABO/Rh (test code = ABO/Rh) AB POS [facility] [id number] 18:35:00 Test Item Value Reference Range Interpretation Comments Antibody Scrn (test Negative (01/02/22 1:35 code = Antibody Scrn) PM) [facility] [employer] [id number] 18:35:00 Test Item Value Reference Range Interpretation Comments ABO/Rh (test code = ABO/Rh) AB POS [facility] [id number] 18:35:00 Test Item Value Reference Range Interpretation Comments Antibody Scrn (test Negative (01/02/22 1:35 code = Antibody Scrn) PM) [facility] [id number] 18:35:00 Test Item Value Reference Range Interpretation Comments ABO/Rh (test code = ABO/Rh) AB POS [facility] [id number] 18:35:00 Test Item Value Reference Range Interpretation Comments Antibody Scrn (test Negative (01/02/22 1:35 code = Antibody Scrn) PM) [facility] [id number] 18:35:00 Test Item Value Reference Range Interpretation Comments ABO/Rh (test code = ABO/Rh) AB POS [facility] [id number] 18:35:00 Test Item Value Reference Range Interpretation Comments Antibody Scrn (test Negative (01/02/22 1:35 code = Antibody Scrn) PM) [facility] [id number] 18:35:00 Test Item Value Reference Range Interpretation Comments ABO/Rh (test code = ABO/Rh) AB POS [employer] [id number] 18:13:00 Test Item Value Reference Range Interpretation Comments HS Troponin I (test code = HS Troponin 156 I) [employer] [id number] 18:13:00 Test Item Value Reference Range Interpretation Comments Glucose Lvl (test code = Glucose Lvl) 237 70-99 [facility] [id number] 18:13:00 Test Item Value Reference Range Interpretation Comments BUN (test code = BUN) 46 7-22 [facility] [id number] 18:13:00 Test Item Value Reference Range Interpretation Comments Creatinine Lvl (test code = Creatinine 5.92 0.50-1.40 Lvl) [facility] [id number] 18:13:00 Test Item Value Reference Range Interpretation Comments Sodium Lvl (test code = Sodium Lvl) 134 135-145 [facility] [id number] 18:13:00 Test Item Value Reference Range Interpretation Comments Potassium Lvl (test code = Potassium 4.4 3.5-5.1 Lvl) [facility] [id number] 18:13:00 Test Item Value Reference Range Interpretation Comments Chloride Lvl (test code = Chloride Lvl) 98 95-109 [facility]NaviscanCARDI[facility] [id number] 18:13:00 Test Item Value Reference Range Interpretation Comments HS Troponin I (test code = HS Troponin 156 I) [facility] [id number] 18:13:00 Test Item Value Reference Range Interpretation Comments Glucose Lvl (test code = Glucose Lvl) 237 70-99 [facility] [id number] 18:13:00 Test Item Value Reference Range Interpretation Comments BUN (test code = BUN) 46 7-22 [facility] [id number] 18:13:00 Test Item Value Reference Range Interpretation Comments Creatinine Lvl (test code = Creatinine 5.92 0.50-1.40 Lvl) [facility] [id number] 18:13:00 Test Item Value Reference Range Interpretation Comments Sodium Lvl (test code = Sodium Lvl) 134 135-145 [facility] [id number] 18:13:00 Test Item Value Reference Range Interpretation Comments Potassium Lvl (test code = Potassium 4.4 3.5-5.1 Lvl) [facility] [id number] 18:13:00 Test Item Value Reference Range Interpretation Comments Chloride Lvl (test code = Chloride Lvl) 98 95-109 [facility] [id number] 18:13:00 Test Item Value Reference Range Interpretation Comments CO2 (test code = CO2) 29 24-32 [place] 412362-08-05 18:13:00 Test Item Value Reference Range Interpretation Comments Calcium Lvl (test code = Calcium Lvl) 9.2 8.5-10.5 [place] 412362-08-05 18:13:00 Test Item Value Reference Range Interpretation Comments Total Protein (test code = Total 6.6 6.4-8.4 Protein) [place] [address]-08-05 18:13:00 Test Item Value Reference Range Interpretation Comments CO2 (test code = CO2) 29 24-32 [place] 412362-08-05 18:13:00 Test Item Value Reference Range Interpretation Comments Albumin Lvl (test code = Albumin Lvl) 3.1 3.5-5.0 [place] [address]-08-05 18:13:00 Test Item Value Reference Range Interpretation Comments ALT (test code = ALT) 36 See_Comment [Auto mated message] The system which ge nerated this result transmit swathi reference range : <=65. The reference range was not used to interpr et this result as deny l/abnormal. [place] [address]-08-05 18:13:00 Test Item Value Reference Range Interpretation Comments AST (test code = AST) 28 See_Comment [Auto mated message] The system which ge nerated this result transmit swathi reference range : <=37. The reference range was not used to interpr et this result as deny l/abnormal. [place] 412362-08-05 18:13:00 Test Item Value Reference Range Interpretation Comments Alk Phos (test code = Alk Phos) 231 39-136 [place] [address]-08-05 18:13:00 Test Item Value Reference Range Interpretation Comments Bili Total (test code = Bili Total) 1.0 0.2-1.3 [address]08-05 18:13:00 Test Item Value Reference Range Interpretation Comments AGAP (test code = AGAP) 11.4 10.0-20.0 [address]08-05 18:13:00 Test Item Value Reference Range Interpretation Comments B/C Ratio (test code = B/C Ratio) 8 1 6-[address]08-05 18:13:00 Test Item Value Reference Range Interpretation Comments Globulin (test code = Globulin) 3.5 2.7-4.2 [place] 412362-08-05 18:13:00 Test Item Value Reference Range Interpretation Comments A/G Ratio (test code = A/G Ratio) 0.9 1 0.7-1.6 [place] 412362-08-05 18:13:00 Test Item Value Reference Range Interpretation Comments eGFR (test code = eGFR) 9 [facility]2022-08-05 18:13:00 Test Item Value Reference Range Interpretation Comments Calcium Lvl (test code = Calcium Lvl) 9.2 8.5-10.5 [place] 264282-08-05 18:13:00 Test Item Value Reference Range Interpretation Comments WBC (test code = WBC) 4.8 3.7-10.4 [place] 264282-08-05 18:13:00 Test Item Value Reference Range Interpretation Comments RBC (test code = RBC) 1.93 4.70-6.10 [place] [address]-08-05 18:13:00 Test Item Value Reference Range Interpretation Comments Hgb (test code = Hgb) 7.2 14.0-18.0 [place] [address]-08-05 18:13:00 Test Item Value Reference Range Interpretation Comments Hct (test code = Hct) 21.2 42.0-54.0 [place] [address]-08-05 18:13:00 Test Item Value Reference Range Interpretation Comments MCV (test code = MCV) 110.1 80.0-94.0 [place] [address]-08-05 18:13:00 Test Item Value Reference Range Interpretation Comments MCH (test code = MCH) 37.1 pg 27.0-31.0 [place] [address]-08-05 18:13:00 Test Item Value Reference Range Interpretation Comments MCHC (test code = MCHC) 33.7 32.0-36.0 [place] [address]-08-05 18:13:00 Test Item Value Reference Range Interpretation Comments RDW (test code = RDW) 25.8 11.5-14.5 [place] 264282-08-05 18:13:00 Test Item Value Reference Range Interpretation Comments Platelet (test code = Platelet) 216 133-450 [id number] 18:13:00 Test Item Value Reference Range Interpretation Comments MPV (test code = MPV) 8.2 7.4-10.4 [facility]2022-08-05 18:13:00 Test Item Value Reference Range Interpretation Comments Total Protein (test code = Total 6.6 6.4-8.4 Protein) [place] 264282-08-05 18:13:00 Test Item Value Reference Range Interpretation Comments PT (test code = PT) 16.9 s 12.0-14.7 [place] [address]-08-05 18:13:00 Test Item Value Reference Range Interpretation Comments INR (test code = INR) 1.39 1 0.85-1.17 [place] [address]-08-05 18:13:00 Test Item Value Reference Range Interpretation Comments PTT (test code = PTT) 35.0 s 22.9-35.8 [place] [address]-08-05 18:13:00 Test Item Value Reference Range Interpretation Comments Plt Morph (test code = Normal (01/02/22 1:13 PM) Plt Morph) [facility]DhbpdctTMZWXTTNJC0050-91-04 18:13:00 Test Item Value Reference Range Interpretation Comments Segs (test code = Segs) 76.4 45.0-75.0 [place] [address]-08-05 18:13:00 Test Item Value Reference Range Interpretation Comments Lymphocytes (test code = Lymphocytes) 14.6 20.0-40.0 [place] [address]-08-05 18:13:00 Test Item Value Reference Range Interpretation Comments Monocytes (test code = Monocytes) 7.5 2.0-12.0 [place] [address]-08-05 18:13:00 Test Item Value Reference Range Interpretation Comments Eosinophils (test code = 0.6 See_Comment [A utomated message] The Eosinophils) system which ge nerated this result tra nsmitted reference range : <=4.0. The reference r samantha was not used to int erpret this result as normal/abnormal . [place] [address]-08-05 18:13:00 Test Item Value Reference Range Interpretation Comments Basophils (test code = 0.9 See_Comment [Aut omated message] The Basophils) system which ge nerated this result tra nsmitted reference range : <=1.0. The reference r samantha was not used to int erpret this result as normal/abnormal . [address]08-05 18:13:00 Test Item Value Reference Range Interpretation Comments Neutrophils # (test code = Neutrophils 3.7 1.5-8.1 #) [address]08-05 18:13:00 Test Item Value Reference Range Interpretation Comments Albumin Lvl (test code = Albumin Lvl) 3.1 3.5-5.0 [address]08-05 18:13:00 Test Item Value Reference Range Interpretation Comments Lymphocytes # (test code = Lymphocytes 0.7 1.0-5.5 #) [address]08-05 18:13:00 Test Item Value Reference Range Interpretation Comments Monocytes # (test code 0.4 See_Comment [Aut omated message] The = Monocytes #) system which generated this result tra nsmitted reference range : <=0.8. The reference r samantha was not used to int erpret this result as normal/abnormal . [address]08-05 18:13:00 Test Item Value Reference Range Interpretation Comments Anisocyte (test code = 2+ *ABN*(01/02/22 1:13 Anisocyte) PM) [address]08-05 18:13:00 Test Item Value Reference Range Interpretation Comments Macrocyte (test code = 2+ *ABN*(01/02/22 1:13 Macrocyte) PM) [address]08-05 18:13:00 Test Item Value Reference Range Interpretation Comments ALT (test code = ALT) 36 See_Comment [Auto mated message] The system which ge nerated this result transmit swathi reference range : <=65. The reference range was not used to interpr et this result as deny l/abnormal. [address]08-05 18:13:00 Test Item Value Reference Range Interpretation Comments AST (test code = AST) 28 See_Comment [Auto mated message] The system which ge nerated this result transmit swathi reference range : <=37. The reference range was not used to interpr et this result as deny l/abnormal. [address]08-05 18:13:00 Test Item Value Reference Range Interpretation Comments Alk Phos (test code = Alk Phos) 231 39-136 [place] [address]-08-05 18:13:00 Test Item Value Reference Range Interpretation Comments Bili Total (test code = Bili Total) 1.0 0.2-1.3 [address]08-05 18:13:00 Test Item Value Reference Range Interpretation Comments AGAP (test code = AGAP) 11.4 10.0-20.0 [address]08-05 18:13:00 Test Item Value Reference Range Interpretation Comments B/C Ratio (test code = B/C Ratio) 8 1 6-25 [address]08-05 18:13:00 Test Item Value Reference Range Interpretation Comments Globulin (test code = Globulin) 3.5 2.7-4.2 [address]08-05 18:13:00 Test Item Value Reference Range Interpretation Comments A/G Ratio (test code = A/G Ratio) 0.9 1 0.7-1.6 [address]08-05 18:13:00 Test Item Value Reference Range Interpretation Comments eGFR (test code = eGFR) 9 [place] [address]-08-05 18:13:00 Test Item Value Reference Range Interpretation Comments WBC (test code = WBC) 4.8 3.7-10.4 [address]08-05 18:13:00 Test Item Value Reference Range Interpretation Comments RBC (test code = RBC) 1.93 4.70-6.10 [place] [address]-08-05 18:13:00 Test Item Value Reference Range Interpretation Comments Hgb (test code = Hgb) 7.2 14.0-18.0 [address]08-05 18:13:00 Test Item Value Reference Range Interpretation Comments Hct (test code = Hct) 21.2 42.0-54.0 [address]08-05 18:13:00 Test Item Value Reference Range Interpretation Comments MCV (test code = MCV) 110.1 80.0-94.0 [address]08-05 18:13:00 Test Item Value Reference Range Interpretation Comments MCH (test code = MCH) 37.1 pg 27.0-31.0 [facility]QobmoasXUPLFHLQLQ6616-04-50 18:13:00 Test Item Value Reference Range Interpretation Comments MCHC (test code = MCHC) 33.7 32.0-36.0 [place] 264282-08-05 18:13:00 Test Item Value Reference Range Interpretation Comments RDW (test code = RDW) 25.8 11.5-14.5 [place] 264282-08-05 18:13:00 Test Item Value Reference Range Interpretation Comments Platelet (test code = Platelet) 216 133-450 [facility] HospitalKnnpbfcFCAAMVVOJQ7040-73-98 18:13:00 Test Item Value Reference Range Interpretation Comments MPV (test code = MPV) 8.2 7.4-10.4 [place] [address]-08-05 18:13:00 Test Item Value Reference Range Interpretation Comments PT (test code = PT) 16.9 s 12.0-14.7 [place] [address]-08-05 18:13:00 Test Item Value Reference Range Interpretation Comments INR (test code = INR) 1.39 1 0.85-1.17 [facility] HospitalDzxvzlwNBIBZEMSSP9094-79-55 18:13:00 Test Item Value Reference Range Interpretation Comments PTT (test code = PTT) 35.0 s 22.9-35.8 [place] 264282-08-05 18:13:00 Test Item Value Reference Range Interpretation Comments Plt Morph (test code = Normal (01/02/22 1:13 PM) Plt Morph) [facility]jdHKUKHWWBLZ6860[facility]-78 18:13:00 Test Item Value Reference Range Interpretation Comments Segs (test code = Segs) 76.4 45.0-75.0 [place] [address]-08-05 18:13:00 Test Item Value Reference Range Interpretation Comments Lymphocytes (test code = Lymphocytes) 14.6 20.0-40.0 [place] 264282-08-05 18:13:00 Test Item Value Reference Range Interpretation Comments Monocytes (test code = Monocytes) 7.5 2.0-12.0 [place] 264282-08-05 18:13:00 Test Item Value Reference Range Interpretation Comments Eosinophils (test code = 0.6 See_Comment [A utomated message] The Eosinophils) system which ge nerated this result tra nsmitted reference range : <=4.0. The reference r samantha was not used to int erpret this result as normal/abnormal . [facility]JkwpwskJIGAYBGZXO9166-52-19 18:13:00 Test Item Value Reference Range Interpretation Comments Basophils (test code = 0.9 See_Comment [Aut omated message] The Basophils) system which ge nerated this result tra nsmitted reference range : <=1.0. The reference r samantha was not used to int erpret this result as normal/abnormal . [facility] HospitalWnykspkCEDSMRXRAL6810-37-04 18:13:00 Test Item Value Reference Range Interpretation Comments Neutrophils # (test code = Neutrophils 3.7 1.5-8.1 #) [facility] HospitalEutpgqsKHMWVUUGXC4638-05-32 18:13:00 Test Item Value Reference Range Interpretation Comments Lymphocytes # (test code = Lymphocytes 0.7 1.0-5.5 #) [facility] HospitalYnxfutsIUGDBSHBPM5529-57-51 18:13:00 Test Item Value Reference Range Interpretation Comments Monocytes # (test code 0.4 See_Comment [Aut omated message] The = Monocytes #) system which generated this result tra nsmitted reference range : <=0.8. The reference r samantha was not used to int erpret this result as normal/abnormal . [facility] HospitalGskhlxbZMHNEUGJOE4181-66-15 18:13:00 Test Item Value Reference Range Interpretation Comments Anisocyte (test code = 2+ *ABN*(01/02/22 1:13 Anisocyte) PM) [facility] HospitalNffeeajKRKZQKWSGW1787-82-80 18:13:00 Test Item Value Reference Range Interpretation Comments Macrocyte (test code = 2+ *ABN*(01/02/22 1:13 Macrocyte) PM) [facility] [id number] 18:13:00 Test Item Value Reference Range Interpretation Comments HS Troponin I (test code = HS Troponin 156 I) [facility]2022-08-05 18:13:00 Test Item Value Reference Range Interpretation Comments Glucose Lvl (test code = Glucose Lvl) 237 70-99 [facility]2022-08-05 18:13:00 Test Item Value Reference Range Interpretation Comments BUN (test code = BUN) 46 7-22 [address]08-05 18:13:00 Test Item Value Reference Range Interpretation Comments Creatinine Lvl (test code = Creatinine 5.92 0.50-1.40 Lvl) [address]08-05 18:13:00 Test Item Value Reference Range Interpretation Comments Sodium Lvl (test code = Sodium Lvl) 134 135-145 [place] 412362-08-05 18:13:00 Test Item Value Reference Range Interpretation Comments Potassium Lvl (test code = Potassium 4.4 3.5-5.1 Lvl) [address]08-05 18:13:00 Test Item Value Reference Range Interpretation Comments Chloride Lvl (test code = Chloride Lvl) 98 95-109 [address]08-05 18:13:00 Test Item Value Reference Range Interpretation Comments CO2 (test code = CO2) 29 24-32 [address]08-05 18:13:00 Test Item Value Reference Range Interpretation Comments Calcium Lvl (test code = Calcium Lvl) 9.2 8.5-10.5 [address]08-05 18:13:00 Test Item Value Reference Range Interpretation Comments Total Protein (test code = Total 6.6 6.4-8.4 Protein) [address]08-05 18:13:00 Test Item Value Reference Range Interpretation Comments Albumin Lvl (test code = Albumin Lvl) 3.1 3.5-5.0 [address]08-05 18:13:00 Test Item Value Reference Range Interpretation Comments ALT (test code = ALT) 36 See_Comment [Auto mated message] The system which ge nerated this result transmit swathi reference range : <=65. The reference range was not used to interpr et this result as deny l/abnormal. [address]08-05 18:13:00 Test Item Value Reference Range Interpretation Comments AST (test code = AST) 28 See_Comment [Auto mated message] The system which ge nerated this result transmit swathi reference range : <=37. The reference range was not used to interpr et this result as deny l/abnormal. [address]08-05 18:13:00 Test Item Value Reference Range Interpretation Comments Alk Phos (test code = Alk Phos) 231 39-136 [place] 412362-08-05 18:13:00 Test Item Value Reference Range Interpretation Comments Bili Total (test code = Bili Total) 1.0 0.2-1.3 [place] 412362-08-05 18:13:00 Test Item Value Reference Range Interpretation Comments AGAP (test code = AGAP) 11.4 10.0-20.0 [place] [address]-08-05 18:13:00 Test Item Value Reference Range Interpretation Comments B/C Ratio (test code = B/C Ratio) 8 1 6-25 [address]08-05 18:13:00 Test Item Value Reference Range Interpretation Comments Globulin (test code = Globulin) 3.5 2.7-4.2 [place] 412362-08-05 18:13:00 Test Item Value Reference Range Interpretation Comments A/G Ratio (test code = A/G Ratio) 0.9 1 0.7-1.6 [place] [address]-08-05 18:13:00 Test Item Value Reference Range Interpretation Comments eGFR (test code = eGFR) 9 [place] [address]-08-05 18:13:00 Test Item Value Reference Range Interpretation Comments WBC (test code = WBC) 4.8 3.7-10.4 [place] [address]-08-05 18:13:00 Test Item Value Reference Range Interpretation Comments RBC (test code = RBC) 1.93 4.70-6.10 [place] [address]-08-05 18:13:00 Test Item Value Reference Range Interpretation Comments Hgb (test code = Hgb) 7.2 14.0-18.0 [place] [address]-08-05 18:13:00 Test Item Value Reference Range Interpretation Comments Hct (test code = Hct) 21.2 42.0-54.0 [place] [address]-08-05 18:13:00 Test Item Value Reference Range Interpretation Comments MCV (test code = MCV) 110.1 80.0-94.0 [address]08-05 18:13:00 Test Item Value Reference Range Interpretation Comments MCH (test code = MCH) 37.1 pg 27.0-31.0 [facility] HospitalOpfdodfTGWMSEJHQH4189-86-26 18:13:00 Test Item Value Reference Range Interpretation Comments MCHC (test code = MCHC) 33.7 32.0-36.0 [place] 264282-08-05 18:13:00 Test Item Value Reference Range Interpretation Comments RDW (test code = RDW) 25.8 11.5-14.5 [place] 264282-08-05 18:13:00 Test Item Value Reference Range Interpretation Comments Platelet (test code = Platelet) 216 133-450 [facility] HospitalArpsqeoQGVFFFLSKA1710-04-13 18:13:00 Test Item Value Reference Range Interpretation Comments MPV (test code = MPV) 8.2 7.4-10.4 [place] 264282-08-05 18:13:00 Test Item Value Reference Range Interpretation Comments PT (test code = PT) 16.9 s 12.0-14.7 [place] 264282-08-05 18:13:00 Test Item Value Reference Range Interpretation Comments INR (test code = INR) 1.39 1 0.85-1.17 [facility] HospitalWfhvrflLIJTKJSXBF4567-54-70 18:13:00 Test Item Value Reference Range Interpretation Comments PTT (test code = PTT) 35.0 s 22.9-35.8 [place] 264282-08-05 18:13:00 Test Item Value Reference Range Interpretation Comments Plt Morph (test code = Normal (01/02/22 1:13 PM) Plt Morph) [facility] HospitalIwhbvypQSEAOUEUAH7586-39-32 18:13:00 Test Item Value Reference Range Interpretation Comments Segs (test code = Segs) 76.4 45.0-75.0 [place] 264282-08-05 18:13:00 Test Item Value Reference Range Interpretation Comments Lymphocytes (test code = Lymphocytes) 14.6 20.0-40.0 [place] [address]-08-05 18:13:00 Test Item Value Reference Range Interpretation Comments Monocytes (test code = Monocytes) 7.5 2.0-12.0 [place] 264282-08-05 18:13:00 Test Item Value Reference Range Interpretation Comments Eosinophils (test code = 0.6 See_Comment [A utomated message] The Eosinophils) system which ge nerated this result tra nsmitted reference range : <=4.0. The reference r samantha was not used to int erpret this result as normal/abnormal . [facility]JavgkdoDJYLVFSHJG2342-00-13 18:13:00 Test Item Value Reference Range Interpretation Comments Basophils (test code = 0.9 See_Comment [Aut omated message] The Basophils) system which ge nerated this result tra nsmitted reference range : <=1.0. The reference r samantha was not used to int erpret this result as normal/abnormal . [facility] MichiganSmlmtriNEUPVKHGRJ2094-00-37 18:13:00 Test Item Value Reference Range Interpretation Comments Neutrophils # (test code = Neutrophils 3.7 1.5-8.1 #) [facility] MichiganQgxxbenAYGEWFTEGP3393-81-57 18:13:00 Test Item Value Reference Range Interpretation Comments Lymphocytes # (test code = Lymphocytes 0.7 1.0-5.5 #) [facility] MichiganOtkevojLRZBUHLXVW7611-97-48 18:13:00 Test Item Value Reference Range Interpretation Comments Monocytes # (test code 0.4 See_Comment [Aut omated message] The = Monocytes #) system which generated this result tra nsmitted reference range : <=0.8. The reference r samantha was not used to int erpret this result as normal/abnormal . [facility] MichiganLwhdfmdBZGFCVXHLE4062-04-12 18:13:00 Test Item Value Reference Range Interpretation Comments Anisocyte (test code = 2+ *ABN*(01/02/22 1:13 Anisocyte) PM) [facility]VxwqfatPSSHXKAPZL8541-73-74 18:13:00 Test Item Value Reference Range Interpretation Comments Macrocyte (test code = 2+ *ABN*(01/02/22 1:13 Macrocyte) PM) [facility] RXCZYPB6958-18-83 18:13:00 Test Item Value Reference Range Interpretation Comments HS Troponin I (test code = HS Troponin 156 I) [facility] [id number] 18:13:00 Test Item Value Reference Range Interpretation Comments Glucose Lvl (test code = Glucose Lvl) 237 70-99 [facility] YXMTR7763-12-55 18:13:00 Test Item Value Reference Range Interpretation Comments BUN (test code = BUN) 46 7-22 [facility] GPFZT5011-42-57 18:13:00 Test Item Value Reference Range Interpretation Comments Creatinine Lvl (test code = Creatinine 5.92 0.50-1.40 Lvl) [address]08-05 18:13:00 Test Item Value Reference Range Interpretation Comments Sodium Lvl (test code = Sodium Lvl) 134 135-145 [place] [address]-08-05 18:13:00 Test Item Value Reference Range Interpretation Comments Potassium Lvl (test code = Potassium 4.4 3.5-5.1 Lvl) [address]08-05 18:13:00 Test Item Value Reference Range Interpretation Comments Chloride Lvl (test code = Chloride Lvl) 98 95-109 [address]08-05 18:13:00 Test Item Value Reference Range Interpretation Comments CO2 (test code = CO2) 29 24-32 [address]08-05 18:13:00 Test Item Value Reference Range Interpretation Comments Calcium Lvl (test code = Calcium Lvl) 9.2 8.5-10.5 [address]08-05 18:13:00 Test Item Value Reference Range Interpretation Comments Total Protein (test code = Total 6.6 6.4-8.4 Protein) [address]08-05 18:13:00 Test Item Value Reference Range Interpretation Comments Albumin Lvl (test code = Albumin Lvl) 3.1 3.5-5.0 [address]08-05 18:13:00 Test Item Value Reference Range Interpretation Comments ALT (test code = ALT) 36 See_Comment [Auto mated message] The system which ge nerated this result transmit swathi reference range : <=65. The reference range was not used to interpr et this result as deny l/abnormal. [address]08-05 18:13:00 Test Item Value Reference Range Interpretation Comments AST (test code = AST) 28 See_Comment [Auto mated message] The system which ge nerated this result transmit swathi reference range : <=37. The reference range was not used to interpr et this result as deny l/abnormal. [place] [address]-08-05 18:13:00 Test Item Value Reference Range Interpretation Comments Alk Phos (test code = Alk Phos) 231 39-136 [place] 412362-08-05 18:13:00 Test Item Value Reference Range Interpretation Comments Bili Total (test code = Bili Total) 1.0 0.2-1.3 [place] 412362-08-05 18:13:00 Test Item Value Reference Range Interpretation Comments AGAP (test code = AGAP) 11.4 10.0-20.0 [place] 412362-08-05 18:13:00 Test Item Value Reference Range Interpretation Comments B/C Ratio (test code = B/C Ratio) 8 1 6-25 [place] [address]-08-05 18:13:00 Test Item Value Reference Range Interpretation Comments Globulin (test code = Globulin) 3.5 2.7-4.2 [place] 412362-08-05 18:13:00 Test Item Value Reference Range Interpretation Comments A/G Ratio (test code = A/G Ratio) 0.9 1 0.7-1.6 [place] [address]-08-05 18:13:00 Test Item Value Reference Range Interpretation Comments eGFR (test code = eGFR) 9 [place] 264282-08-05 18:13:00 Test Item Value Reference Range Interpretation Comments WBC (test code = WBC) 4.8 3.7-10.4 [place] [address]-08-05 18:13:00 Test Item Value Reference Range Interpretation Comments RBC (test code = RBC) 1.93 4.70-6.10 [place] [address]-08-05 18:13:00 Test Item Value Reference Range Interpretation Comments Hgb (test code = Hgb) 7.2 14.0-18.0 [place] [address]-08-05 18:13:00 Test Item Value Reference Range Interpretation Comments Hct (test code = Hct) 21.2 42.0-54.0 [place] [address]-08-05 18:13:00 Test Item Value Reference Range Interpretation Comments MCV (test code = MCV) 110.1 80.0-94.0 [place] [address]-08-05 18:13:00 Test Item Value Reference Range Interpretation Comments MCH (test code = MCH) 37.1 pg 27.0-31.0 [place] [address]-08-05 18:13:00 Test Item Value Reference Range Interpretation Comments MCHC (test code = MCHC) 33.7 32.0-36.0 [place] [address]-08-05 18:13:00 Test Item Value Reference Range Interpretation Comments RDW (test code = RDW) 25.8 11.5-14.5 [facility] HospitalLespsvcVUMTGQAZEQ2178-78-10 18:13:00 Test Item Value Reference Range Interpretation Comments Platelet (test code = Platelet) 216 133-450 [facility] HospitalIfzhxojWURMDTUVYT9035-40-24 18:13:00 Test Item Value Reference Range Interpretation Comments MPV (test code = MPV) 8.2 7.4-10.4 [place] [address]-08-05 18:13:00 Test Item Value Reference Range Interpretation Comments PT (test code = PT) 16.9 s 12.0-14.7 [place] 264282-08-05 18:13:00 Test Item Value Reference Range Interpretation Comments INR (test code = INR) 1.39 1 0.85-1.17 [facility] HospitalRsaixbrQJQFCOBZEF4233-98-84 18:13:00 Test Item Value Reference Range Interpretation Comments PTT (test code = PTT) 35.0 s 22.9-35.8 [place] [address]-08-05 18:13:00 Test Item Value Reference Range Interpretation Comments Plt Morph (test code = Normal (01/02/22 1:13 PM) Plt Morph) [facility] HospitalVtavaixDBFNVNZZKE8948-53-64 18:13:00 Test Item Value Reference Range Interpretation Comments Segs (test code = Segs) 76.4 45.0-75.0 [facility] HospitalTtqlhcpSRECPIIUHA5248-02-37 18:13:00 Test Item Value Reference Range Interpretation Comments Lymphocytes (test code = Lymphocytes) 14.6 20.0-40.0 [place] [address]-08-05 18:13:00 Test Item Value Reference Range Interpretation Comments Monocytes (test code = Monocytes) 7.5 2.0-12.0 [place] [address]-08-05 18:13:00 Test Item Value Reference Range Interpretation Comments Eosinophils (test code = 0.6 See_Comment [A utomated message] The Eosinophils) system which ge nerated this result tra nsmitted reference range : <=4.0. The reference r samantha was not used to int erpret this result as normal/abnormal . [facility] HospitalIvoywubMIIDZENKVB5621-30-53 18:13:00 Test Item Value Reference Range Interpretation Comments Basophils (test code = 0.9 See_Comment [Aut omated message] The Basophils) system which ge nerated this result tra nsmitted reference range : <=1.0. The reference r samantha was not used to int erpret this result as normal/abnormal . [facility] HospitalWyensziCOXRJEFCUA1790-63-57 18:13:00 Test Item Value Reference Range Interpretation Comments Neutrophils # (test code = Neutrophils 3.7 1.5-8.1 #) [facility] HospitalThtmqsmUPHNIMEQLU7056-54-33 18:13:00 Test Item Value Reference Range Interpretation Comments Lymphocytes # (test code = Lymphocytes 0.7 1.0-5.5 #) [facility] HospitalRcfjcbqHAGNUOSZXB1025-81-22 18:13:00 Test Item Value Reference Range Interpretation Comments Monocytes # (test code 0.4 See_Comment [Aut omated message] The = Monocytes #) system which generated this result tra nsmitted reference range : <=0.8. The reference r samantha was not used to int erpret this result as normal/abnormal . [facility] HospitalIhfelvnLXFUAJHNHT5511-21-39 18:13:00 Test Item Value Reference Range Interpretation Comments Anisocyte (test code = 2+ *ABN*(01/02/22 1:13 Anisocyte) PM) [facility] HospitalFfbiqgbEOPHRTCHEA0441-17-07 18:13:00 Test Item Value Reference Range Interpretation Comments Macrocyte (test code = 2+ *ABN*(01/02/22 1:13 Macrocyte) PM) [facility] EQNGATS9551-43-22 18:13:00 Test Item Value Reference Range Interpretation Comments HS Troponin I (test code = HS Troponin 156 I) [facility] [id number] 18:13:00 Test Item Value Reference Range Interpretation Comments Glucose Lvl (test code = Glucose Lvl) 237 70-99 [facility]2022-08-05 18:13:00 Test Item Value Reference Range Interpretation Comments BUN (test code = BUN) 46 7-22 [facility] KASJM0285-95-11 18:13:00 Test Item Value Reference Range Interpretation Comments Creatinine Lvl (test code = Creatinine 5.92 0.50-1.40 Lvl) [address]08-05 18:13:00 Test Item Value Reference Range Interpretation Comments Sodium Lvl (test code = Sodium Lvl) 134 135-145 [place] [address]-08-05 18:13:00 Test Item Value Reference Range Interpretation Comments Potassium Lvl (test code = Potassium 4.4 3.5-5.1 Lvl) [address]08-05 18:13:00 Test Item Value Reference Range Interpretation Comments Chloride Lvl (test code = Chloride Lvl) 98 95-109 [address]08-05 18:13:00 Test Item Value Reference Range Interpretation Comments CO2 (test code = CO2) 29 24-32 [address]08-05 18:13:00 Test Item Value Reference Range Interpretation Comments Calcium Lvl (test code = Calcium Lvl) 9.2 8.5-10.5 [address]08-05 18:13:00 Test Item Value Reference Range Interpretation Comments Total Protein (test code = Total 6.6 6.4-8.4 Protein) [address]08-05 18:13:00 Test Item Value Reference Range Interpretation Comments Albumin Lvl (test code = Albumin Lvl) 3.1 3.5-5.0 [address]08-05 18:13:00 Test Item Value Reference Range Interpretation Comments ALT (test code = ALT) 36 See_Comment [Auto mated message] The system which [employer] nerated this result transmit swathi reference range : <=65. The reference range was not used to interpr et this result as deny l/abnormal. [place] [address]-08-05 18:13:00 Test Item Value Reference Range Interpretation Comments AST (test code = AST) 28 See_Comment [Auto mated message] The system which ge nerated this result transmit swathi reference range : <=37. The reference range was not used to interpr et this result as deny l/abnormal. [address]08-05 18:13:00 Test Item Value Reference Range Interpretation Comments Alk Phos (test code = Alk Phos) 231 39-136 [place] 412362-08-05 18:13:00 Test Item Value Reference Range Interpretation Comments Bili Total (test code = Bili Total) 1.0 0.2-1.3 [address]08-05 18:13:00 Test Item Value Reference Range Interpretation Comments AGAP (test code = AGAP) 11.4 10.0-20.0 [place] [address]-08-05 18:13:00 Test Item Value Reference Range Interpretation Comments B/C Ratio (test code = B/C Ratio) 8 1 6-25 [address]08-05 18:13:00 Test Item Value Reference Range Interpretation Comments Globulin (test code = Globulin) 3.5 2.7-4.2 [place] 412362-08-05 18:13:00 Test Item Value Reference Range Interpretation Comments A/G Ratio (test code = A/G Ratio) 0.9 1 0.7-1.6 [address]08-05 18:13:00 Test Item Value Reference Range Interpretation Comments eGFR (test code = eGFR) 9 [place] [address]-08-05 18:13:00 Test Item Value Reference Range Interpretation Comments WBC (test code = WBC) 4.8 3.7-10.4 [place] [address]-08-05 18:13:00 Test Item Value Reference Range Interpretation Comments RBC (test code = RBC) 1.93 4.70-6.10 [place] [address]-08-05 18:13:00 Test Item Value Reference Range Interpretation Comments Hgb (test code = Hgb) 7.2 14.0-18.0 [place] [address]-08-05 18:13:00 Test Item Value Reference Range Interpretation Comments Hct (test code = Hct) 21.2 42.0-54.0 [address]08-05 18:13:00 Test Item Value Reference Range Interpretation Comments MCV (test code = MCV) 110.1 80.0-94.0 [place] [address]-08-05 18:13:00 Test Item Value Reference Range Interpretation Comments MCH (test code = MCH) 37.1 pg 27.0-31.0 [place] [address]-08-05 18:13:00 Test Item Value Reference Range Interpretation Comments MCHC (test code = MCHC) 33.7 32.0-36.0 [place] [address]-08-05 18:13:00 Test Item Value Reference Range Interpretation Comments RDW (test code = RDW) 25.8 11.5-14.5 [place] [address]-08-05 18:13:00 Test Item Value Reference Range Interpretation Comments Platelet (test code = Platelet) 216 133-450 [facility] HospitalPzyrqjuYUAIDMTBZM5415-65-57 18:13:00 Test Item Value Reference Range Interpretation Comments MPV (test code = MPV) 8.2 7.4-10.4 [place] [address]-08-05 18:13:00 Test Item Value Reference Range Interpretation Comments PT (test code = PT) 16.9 s 12.0-14.7 [place] [address]-08-05 18:13:00 Test Item Value Reference Range Interpretation Comments INR (test code = INR) 1.39 1 0.85-1.17 [place] [address]-08-05 18:13:00 Test Item Value Reference Range Interpretation Comments PTT (test code = PTT) 35.0 s 22.9-35.8 [place] [address]-08-05 18:13:00 Test Item Value Reference Range Interpretation Comments Plt Morph (test code = Normal (01/02/22 1:13 PM) Plt Morph) [place] [address]-08-05 18:13:00 Test Item Value Reference Range Interpretation Comments Segs (test code = Segs) 76.4 45.0-75.0 [place] [address]-08-05 18:13:00 Test Item Value Reference Range Interpretation Comments Lymphocytes (test code = Lymphocytes) 14.6 20.0-40.0 [place] [address]-08-05 18:13:00 Test Item Value Reference Range Interpretation Comments Monocytes (test code = Monocytes) 7.5 2.0-12.0 [place] [address]-08-05 18:13:00 Test Item Value Reference Range Interpretation Comments Eosinophils (test code = 0.6 See_Comment [A utomated message] The Eosinophils) system which ge nerated this result tra nsmitted reference range : <=4.0. The reference r samantha was not used to int erpret this result as normal/abnormal . [facility]FfpkcloQTIIWHCCCI9930-66-92 18:13:00 Test Item Value Reference Range Interpretation Comments Basophils (test code = 0.9 See_Comment [Aut omated message] The Basophils) system which ge nerated this result tra nsmitted reference range : <=1.0. The reference r samantha was not used to int erpret this result as normal/abnormal . [facility]MoqgdovDNDGUGDDMF5752-57-22 18:13:00 Test Item Value Reference Range Interpretation Comments Neutrophils # (test code = Neutrophils 3.7 1.5-8.1 #) [facility] MichiganDyfbwarBGPDYNMSDV8425-15-74 18:13:00 Test Item Value Reference Range Interpretation Comments Lymphocytes # (test code = Lymphocytes 0.7 1.0-5.5 #) [facility] MichiganFhqpbmaWXQBMSXKHJ3142-49-82 18:13:00 Test Item Value Reference Range Interpretation Comments Monocytes # (test code 0.4 See_Comment [Aut omated message] The = Monocytes #) system which generated this result tra nsmitted reference range : <=0.8. The reference r samantha was not used to int erpret this result as normal/abnormal . [facility] MichiganNczrzvaWZMGSNHUPS1240-21-42 18:13:00 Test Item Value Reference Range Interpretation Comments Anisocyte (test code = 2+ *ABN*(01/02/22 1:13 Anisocyte) PM) [id number] 18:13:00 Test Item Value Reference Range Interpretation Comments Macrocyte (test code = 2+ *ABN*(01/02/22 1:13 Macrocyte) PM) [facility] [id number] 18:13:00 Test Item Value Reference Range Interpretation Comments HS Troponin I (test code = HS Troponin 156 I) [facility] [id number] 18:13:00 Test Item Value Reference Range Interpretation Comments Glucose Lvl (test code = Glucose Lvl) 237 70-99 [facility] [id number] 18:13:00 Test Item Value Reference Range Interpretation Comments BUN (test code = BUN) 46 7-22 [facility] [id number] 18:13:00 Test Item Value Reference Range Interpretation Comments Creatinine Lvl (test code = Creatinine 5.92 0.50-1.40 Lvl) [place] [address]-08-05 18:13:00 Test Item Value Reference Range Interpretation Comments Sodium Lvl (test code = Sodium Lvl) 134 135-145 [place] [address]-08-05 18:13:00 Test Item Value Reference Range Interpretation Comments Potassium Lvl (test code = Potassium 4.4 3.5-5.1 Lvl) [address]08-05 18:13:00 Test Item Value Reference Range Interpretation Comments Chloride Lvl (test code = Chloride Lvl) 98 95-109 [address]08-05 18:13:00 Test Item Value Reference Range Interpretation Comments CO2 (test code = CO2) 29 24-32 [address]08-05 18:13:00 Test Item Value Reference Range Interpretation Comments Calcium Lvl (test code = Calcium Lvl) 9.2 8.5-10.5 [address]08-05 18:13:00 Test Item Value Reference Range Interpretation Comments Total Protein (test code = Total 6.6 6.4-8.4 Protein) [address]08-05 18:13:00 Test Item Value Reference Range Interpretation Comments Albumin Lvl (test code = Albumin Lvl) 3.1 3.5-5.0 [address]08-05 18:13:00 Test Item Value Reference Range Interpretation Comments ALT (test code = ALT) 36 See_Comment [Auto mated message] The system which ge nerated this result transmit swathi reference range : <=65. The reference range was not used to interpr et this result as deny l/abnormal. [address]08-05 18:13:00 Test Item Value Reference Range Interpretation Comments AST (test code = AST) 28 See_Comment [Auto mated message] The system which ge nerated this result transmit swathi reference range : <=37. The reference range was not used to interpr et this result as deny l/abnormal. [address]08-05 18:13:00 Test Item Value Reference Range Interpretation Comments Alk Phos (test code = Alk Phos) 231 39-136 [place] [address]-08-05 18:13:00 Test Item Value Reference Range Interpretation Comments Bili Total (test code = Bili Total) 1.0 0.2-1.3 [address]08-05 18:13:00 Test Item Value Reference Range Interpretation Comments AGAP (test code = AGAP) 11.4 10.0-20.0 [address]08-05 18:13:00 Test Item Value Reference Range Interpretation Comments B/C Ratio (test code = B/C Ratio) 8 1 6-25 [address]08-05 18:13:00 Test Item Value Reference Range Interpretation Comments Globulin (test code = Globulin) 3.5 2.7-4.2 [address]08-05 18:13:00 Test Item Value Reference Range Interpretation Comments A/G Ratio (test code = A/G Ratio) 0.9 1 0.7-1.6 [address]08-05 18:13:00 Test Item Value Reference Range Interpretation Comments eGFR (test code = eGFR) 9 [place] [address]-08-05 18:13:00 Test Item Value Reference Range Interpretation Comments WBC (test code = WBC) 4.8 3.7-10.4 [address]08-05 18:13:00 Test Item Value Reference Range Interpretation Comments RBC (test code = RBC) 1.93 4.70-6.10 [address]08-05 18:13:00 Test Item Value Reference Range Interpretation Comments Hgb (test code = Hgb) 7.2 14.0-18.0 [address]08-05 18:13:00 Test Item Value Reference Range Interpretation Comments Hct (test code = Hct) 21.2 42.0-54.0 [place] [address]-08-05 18:13:00 Test Item Value Reference Range Interpretation Comments MCV (test code = MCV) 110.1 80.0-94.0 [place] [address]-08-05 18:13:00 Test Item Value Reference Range Interpretation Comments MCH (test code = MCH) 37.1 pg 27.0-31.0 [place] [address]-08-05 18:13:00 Test Item Value Reference Range Interpretation Comments MCHC (test code = MCHC) 33.7 32.0-36.0 [facility]IodalnyVRAWMACKTD7648-85-13 18:13:00 Test Item Value Reference Range Interpretation Comments RDW (test code = RDW) 25.8 11.5-14.5 [place] 264282-08-05 18:13:00 Test Item Value Reference Range Interpretation Comments Platelet (test code = Platelet) 216 133-450 [facility] HospitalIwkfgwqPGZFEGQQWV4010-55-68 18:13:00 Test Item Value Reference Range Interpretation Comments MPV (test code = MPV) 8.2 7.4-10.4 [place] 264282-08-05 18:13:00 Test Item Value Reference Range Interpretation Comments PT (test code = PT) 16.9 s 12.0-14.7 [place] 264282-08-05 18:13:00 Test Item Value Reference Range Interpretation Comments INR (test code = INR) 1.39 1 0.85-1.17 [place] 264282-08-05 18:13:00 Test Item Value Reference Range Interpretation Comments PTT (test code = PTT) 35.0 s 22.9-35.8 [place] 264282-08-05 18:13:00 Test Item Value Reference Range Interpretation Comments Plt Morph (test code = Normal (01/02/22 1:13 PM) Plt Morph) [facility] HospitalQuyeshtILBLAXEXCG2623-36-18 18:13:00 Test Item Value Reference Range Interpretation Comments Segs (test code = Segs) 76.4 45.0-75.0 [facility] HospitalHewpuppWLBTJOFCAQ6947-48-77 18:13:00 Test Item Value Reference Range Interpretation Comments Lymphocytes (test code = Lymphocytes) 14.6 20.0-40.0 [place] [address]-08-05 18:13:00 Test Item Value Reference Range Interpretation Comments Monocytes (test code = Monocytes) 7.5 2.0-12.0 [place] [address]-08-05 18:13:00 Test Item Value Reference Range Interpretation Comments Eosinophils (test code = 0.6 See_Comment [A utomated message] The Eosinophils) system which ge nerated this result tra nsmitted reference range : <=4.0. The reference r samantha was not used to int erpret this result as normal/abnormal . [place] 264282-08-05 18:13:00 Test Item Value Reference Range Interpretation Comments Basophils (test code = 0.9 See_Comment [Aut omated message] The Basophils) system which ge nerated this result tra nsmitted reference range : <=1.0. The reference r samantha was not used to int erpret this result as normal/abnormal . [facility] HospitalQjfkwjgWBHODDAXPU5688-16-49 18:13:00 Test Item Value Reference Range Interpretation Comments Neutrophils # (test code = Neutrophils 3.7 1.5-8.1 #) [facility] HospitalVwaaiyeECGBPVUJNC3248-65-11 18:13:00 Test Item Value Reference Range Interpretation Comments Lymphocytes # (test code = Lymphocytes 0.7 1.0-5.5 #) [facility] HospitalYfttppdLWLYGSADHK1449-05-61 18:13:00 Test Item Value Reference Range Interpretation Comments Monocytes # (test code 0.4 See_Comment [Aut omated message] The = Monocytes #) system which generated this result tra nsmitted reference range : <=0.8. The reference r samantha was not used to int erpret this result as normal/abnormal . [facility] HospitalUzsgjwzTATGVNCEQB0264-37-85 18:13:00 Test Item Value Reference Range Interpretation Comments Anisocyte (test code = 2+ *ABN*(01/02/22 1:13 Anisocyte) PM) [facility] HospitalCugrtyoVRXBCIYLWP6456-99-38 18:13:00 Test Item Value Reference Range Interpretation Comments Macrocyte (test code = 2+ *ABN*(01/02/22 1:13 Macrocyte) PM) [facility] [id number] 18:13:00 Test Item Value Reference Range Interpretation Comments HS Troponin I (test code = HS Troponin 156 I) [facility]2022-08-05 18:13:00 Test Item Value Reference Range Interpretation Comments Glucose Lvl (test code = Glucose Lvl) 237 70-99 [facility]2022-08-05 18:13:00 Test Item Value Reference Range Interpretation Comments BUN (test code = BUN) 46 7-22 [facility]2022-08-05 18:13:00 Test Item Value Reference Range Interpretation Comments Creatinine Lvl (test code = Creatinine 5.92 0.50-1.40 Lvl) [facility]2022-08-05 18:13:00 Test Item Value Reference Range Interpretation Comments Sodium Lvl (test code = Sodium Lvl) 134 135-145 [place] [address]-08-05 18:13:00 Test Item Value Reference Range Interpretation Comments Potassium Lvl (test code = Potassium 4.4 3.5-5.1 Lvl) [place] [address]-08-05 18:13:00 Test Item Value Reference Range Interpretation Comments Chloride Lvl (test code = Chloride Lvl) 98 95-109 [place] [address]-08-05 18:13:00 Test Item Value Reference Range Interpretation Comments CO2 (test code = CO2) 29 24-32 [address]08-05 18:13:00 Test Item Value Reference Range Interpretation Comments Calcium Lvl (test code = Calcium Lvl) 9.2 8.5-10.5 [place] [address]-08-05 18:13:00 Test Item Value Reference Range Interpretation Comments Total Protein (test code = Total 6.6 6.4-8.4 Protein) [address]08-05 18:13:00 Test Item Value Reference Range Interpretation Comments Albumin Lvl (test code = Albumin Lvl) 3.1 3.5-5.0 [facility] [id number] 18:13:00 Test Item Value Reference Range Interpretation Comments ALT (test code = ALT) 36 See_Comment [Auto mated message] The system which ge nerated this result transmit swathi reference range : <=65. The reference range was not used to interpr et this result as deny l/abnormal. [facility] [id number] 18:13:00 Test Item Value Reference Range Interpretation Comments AST (test code = AST) 28 See_Comment [Auto mated message] The system which ge nerated this result transmit swathi reference range : <=37. The reference range was not used to interpr et this result as deny l/abnormal. [facility] [id number] 18:13:00 Test Item Value Reference Range Interpretation Comments Alk Phos (test code = Alk Phos) 231 39-136 [place] [address]-08-05 18:13:00 Test Item Value Reference Range Interpretation Comments Bili Total (test code = Bili Total) 1.0 0.2-1.3 [place] 412362-08-05 18:13:00 Test Item Value Reference Range Interpretation Comments AGAP (test code = AGAP) 11.4 10.0-20.0 [place] 412362-08-05 18:13:00 Test Item Value Reference Range Interpretation Comments B/C Ratio (test code = B/C Ratio) 8 1 6-25 [place] [address]-08-05 18:13:00 Test Item Value Reference Range Interpretation Comments Globulin (test code = Globulin) 3.5 2.7-4.2 [place] [address]-08-05 18:13:00 Test Item Value Reference Range Interpretation Comments A/G Ratio (test code = A/G Ratio) 0.9 1 0.7-1.6 [place] [address]-08-05 18:13:00 Test Item Value Reference Range Interpretation Comments eGFR (test code = eGFR) 9 [place] 264282-08-05 18:13:00 Test Item Value Reference Range Interpretation Comments WBC (test code = WBC) 4.8 3.7-10.4 [place] 264282-08-05 18:13:00 Test Item Value Reference Range Interpretation Comments RBC (test code = RBC) 1.93 4.70-6.10 [place] 264282-08-05 18:13:00 Test Item Value Reference Range Interpretation Comments Hgb (test code = Hgb) 7.2 14.0-18.0 [place] [address]-08-05 18:13:00 Test Item Value Reference Range Interpretation Comments Hct (test code = Hct) 21.2 42.0-54.0 [place] [address]-08-05 18:13:00 Test Item Value Reference Range Interpretation Comments MCV (test code = MCV) 110.1 80.0-94.0 [place] [address]-08-05 18:13:00 Test Item Value Reference Range Interpretation Comments MCH (test code = MCH) 37.1 pg 27.0-31.0 [place] [address]-08-05 18:13:00 Test Item Value Reference Range Interpretation Comments MCHC (test code = MCHC) 33.7 32.0-36.0 [place] [address]-08-05 18:13:00 Test Item Value Reference Range Interpretation Comments RDW (test code = RDW) 25.8 11.5-14.5 [place] [address]-08-05 18:13:00 Test Item Value Reference Range Interpretation Comments Platelet (test code = Platelet) 216 133-450 [place] 264282-08-05 18:13:00 Test Item Value Reference Range Interpretation Comments MPV (test code = MPV) 8.2 7.4-10.4 [place] [address]-08-05 18:13:00 Test Item Value Reference Range Interpretation Comments PT (test code = PT) 16.9 s 12.0-14.7 [place] [address]-08-05 18:13:00 Test Item Value Reference Range Interpretation Comments INR (test code = INR) 1.39 1 0.85-1.17 [place] [address]-08-05 18:13:00 Test Item Value Reference Range Interpretation Comments PTT (test code = PTT) 35.0 s 22.9-35.8 [place] [address]-08-05 18:13:00 Test Item Value Reference Range Interpretation Comments Plt Morph (test code = Normal (01/02/22 1:13 PM) Plt Morph) [facility] HospitalQffnvtdRLVCEEPFJG7631-37-24 18:13:00 Test Item Value Reference Range Interpretation Comments Segs (test code = Segs) 76.4 45.0-75.0 [place] [address]-08-05 18:13:00 Test Item Value Reference Range Interpretation Comments Lymphocytes (test code = Lymphocytes) 14.6 20.0-40.0 [place] 264282-08-05 18:13:00 Test Item Value Reference Range Interpretation Comments Monocytes (test code = Monocytes) 7.5 2.0-12.0 [place] [address]-08-05 18:13:00 Test Item Value Reference Range Interpretation Comments Eosinophils (test code = 0.6 See_Comment [A utomated message] The Eosinophils) system which ge nerated this result tra nsmitted reference range : <=4.0. The reference r samantha was not used to int erpret this result as normal/abnormal . [place] 264282-08-05 18:13:00 Test Item Value Reference Range Interpretation Comments Basophils (test code = 0.9 See_Comment [Aut omated message] The Basophils) system which ge nerated this result tra nsmitted reference range : <=1.0. The reference r samantha was not used to int erpret this result as normal/abnormal . [facility] HospitalVromuytDXXBYNAEIZ9830-34-35 18:13:00 Test Item Value Reference Range Interpretation Comments Neutrophils # (test code = Neutrophils 3.7 1.5-8.1 #) [facility] HospitalIbywwvlNHFLLYMBND4368-36-22 18:13:00 Test Item Value Reference Range Interpretation Comments Lymphocytes # (test code = Lymphocytes 0.7 1.0-5.5 #) [facility] HospitalSriptetQDTWJUCBYA7538-12-88 18:13:00 Test Item Value Reference Range Interpretation Comments Monocytes # (test code 0.4 See_Comment [Aut omated message] The = Monocytes #) system which generated this result tra nsmitted reference range : <=0.8. The reference r samantha was not used to int erpret this result as normal/abnormal . [facility] HospitalZgypmkdKEFDCXDKTD9271-92-02 18:13:00 Test Item Value Reference Range Interpretation Comments Anisocyte (test code = 2+ *ABN*(01/02/22 1:13 Anisocyte) PM) [facility] HospitalSipxvcjVUWGDTELLT0037-76-41 18:13:00 Test Item Value Reference Range Interpretation Comments Macrocyte (test code = 2+ *ABN*(01/02/22 1:13 Macrocyte) PM) [facility] [id number] 18:13:00 Test Item Value Reference Range Interpretation Comments HS Troponin I (test code = HS Troponin 156 I) [facility] [id number] 18:13:00 Test Item Value Reference Range Interpretation Comments Glucose Lvl (test code = Glucose Lvl) 237 70-99 [facility]2022-08-05 18:13:00 Test Item Value Reference Range Interpretation Comments BUN (test code = BUN) 46 7-22 [facility]2022-08-05 18:13:00 Test Item Value Reference Range Interpretation Comments Creatinine Lvl (test code = Creatinine 5.92 0.50-1.40 Lvl) [facility]2022-08-05 18:13:00 Test Item Value Reference Range Interpretation Comments Sodium Lvl (test code = Sodium Lvl) 134 135-145 [facility] [address]IQCQB7189-23-79 18:13:00 Test Item Value Reference Range Interpretation Comments Potassium Lvl (test code = Potassium 4.4 3.5-5.1 Lvl) [place] 412362-08-05 18:13:00 Test Item Value Reference Range Interpretation Comments Chloride Lvl (test code = Chloride Lvl) 98 95-109 [facility] [id number] 18:13:00 Test Item Value Reference Range Interpretation Comments CO2 (test code = CO2) 29 24-32 [place] 412362-08-05 18:13:00 Test Item Value Reference Range Interpretation Comments Calcium Lvl (test code = Calcium Lvl) 9.2 8.5-10.5 [place] 412362-08-05 18:13:00 Test Item Value Reference Range Interpretation Comments Total Protein (test code = Total 6.6 6.4-8.4 Protein) [place] 412362-08-05 18:13:00 Test Item Value Reference Range Interpretation Comments Albumin Lvl (test code = Albumin Lvl) 3.1 3.5-5.0 [facility] [id number] 18:13:00 Test Item Value Reference Range Interpretation Comments ALT (test code = ALT) 36 See_Comment [Auto mated message] The system which ge nerated this result transmit swathi reference range : <=65. The reference range was not used to interpr et this result as deny l/abnormal. [facility] [id number] 18:13:00 Test Item Value Reference Range Interpretation Comments AST (test code = AST) 28 See_Comment [Auto mated message] The system which ge nerated this result transmit swathi reference range : <=37. The reference range was not used to interpr et this result as deny l/abnormal. [facility] [id number] 18:13:00 Test Item Value Reference Range Interpretation Comments Alk Phos (test code = Alk Phos) 231 39-136 [facility] [id number] 18:13:00 Test Item Value Reference Range Interpretation Comments Bili Total (test code = Bili Total) 1.0 0.2-1.3 [facility]89[place]-08-05 18:13:00 Test Item Value Reference Range Interpretation Comments AGAP (test code = AGAP) 11.4 10.0-20.0 [address]08-05 18:13:00 Test Item Value Reference Range Interpretation Comments B/C Ratio (test code = B/C Ratio) 8 1 6-25 [address]08-05 18:13:00 Test Item Value Reference Range Interpretation Comments Globulin (test code = Globulin) 3.5 2.7-4.2 [address]08-05 18:13:00 Test Item Value Reference Range Interpretation Comments A/G Ratio (test code = A/G Ratio) 0.9 1 0.7-1.6 [address]08-05 18:13:00 Test Item Value Reference Range Interpretation Comments eGFR (test code = eGFR) 9 [place] [address]-08-05 18:13:00 Test Item Value Reference Range Interpretation Comments WBC (test code = WBC) 4.8 3.7-10.4 [address]08-05 18:13:00 Test Item Value Reference Range Interpretation Comments RBC (test code = RBC) 1.93 4.70-6.10 [address]08-05 18:13:00 Test Item Value Reference Range Interpretation Comments Hgb (test code = Hgb) 7.2 14.0-18.0 [address]08-05 18:13:00 Test Item Value Reference Range Interpretation Comments Hct (test code = Hct) 21.2 42.0-54.0 [address]08-05 18:13:00 Test Item Value Reference Range Interpretation Comments MCV (test code = MCV) 110.1 80.0-94.0 [address]08-05 18:13:00 Test Item Value Reference Range Interpretation Comments MCH (test code = MCH) 37.1 pg 27.0-31.0 [place] [address]-08-05 18:13:00 Test Item Value Reference Range Interpretation Comments MCHC (test code = MCHC) 33.7 32.0-36.0 [place] [address]-08-05 18:13:00 Test Item Value Reference Range Interpretation Comments RDW (test code = RDW) 25.8 11.5-14.5 [place] [address]-08-05 18:13:00 Test Item Value Reference Range Interpretation Comments Platelet (test code = Platelet) 216 133-450 [place] 264282-08-05 18:13:00 Test Item Value Reference Range Interpretation Comments MPV (test code = MPV) 8.2 7.4-10.4 [place] [address]-08-05 18:13:00 Test Item Value Reference Range Interpretation Comments PT (test code = PT) 16.9 s 12.0-14.7 [place] [address]-08-05 18:13:00 Test Item Value Reference Range Interpretation Comments INR (test code = INR) 1.39 1 0.85-1.17 [place] [address]-08-05 18:13:00 Test Item Value Reference Range Interpretation Comments PTT (test code = PTT) 35.0 s 22.9-35.8 [place] [address]-08-05 18:13:00 Test Item Value Reference Range Interpretation Comments Plt Morph (test code = Normal (01/02/22 1:13 PM) Plt Morph) [place] [address]-08-05 18:13:00 Test Item Value Reference Range Interpretation Comments Segs (test code = Segs) 76.4 45.0-75.0 [place] [address]-08-05 18:13:00 Test Item Value Reference Range Interpretation Comments Lymphocytes (test code = Lymphocytes) 14.6 20.0-40.0 [place] [address]-08-05 18:13:00 Test Item Value Reference Range Interpretation Comments Monocytes (test code = Monocytes) 7.5 2.0-12.0 [place] [address]-08-05 18:13:00 Test Item Value Reference Range Interpretation Comments Eosinophils (test code = 0.6 See_Comment [A utomated message] The Eosinophils) system which ge nerated this result tra nsmitted reference range : <=4.0. The reference r samantha was not used to int erpret this result as normal/abnormal . [place] 264282-08-05 18:13:00 Test Item Value Reference Range Interpretation Comments Basophils (test code = 0.9 See_Comment [Aut omated message] The Basophils) system which ge nerated this result tra nsmitted reference range : <=1.0. The reference r samantha was not used to int erpret this result as normal/abnormal . [facility] HospitalNviptelCKHZOQCNOK6533-18-69 18:13:00 Test Item Value Reference Range Interpretation Comments Neutrophils # (test code = Neutrophils 3.7 1.5-8.1 #) [facility]TvdpecgJTSFWIUEUV1704-90-25 18:13:00 Test Item Value Reference Range Interpretation Comments Lymphocytes # (test code = Lymphocytes 0.7 1.0-5.5 #) [facility]CguxoxpYVOWOVUWUT9271-73-64 18:13:00 Test Item Value Reference Range Interpretation Comments Monocytes # (test code 0.4 See_Comment [Aut omated message] The = Monocytes #) system which generated this result tra nsmitted reference range : <=0.8. The reference r samantha was not used to int erpret this result as normal/abnormal . [facility] MichiganZhxvpghEBDYIXDAOP5924-22-82 18:13:00 Test Item Value Reference Range Interpretation Comments Anisocyte (test code = 2+ *ABN*(01/02/22 1:13 Anisocyte) PM) [facility] MichiganYopymgfXDXORVVYEH0422-60-07 18:13:00 Test Item Value Reference Range Interpretation Comments Macrocyte (test code = 2+ *ABN*(01/02/22 1:13 Macrocyte) PM) [facility] [id number] 18:13:00 Test Item Value Reference Range Interpretation Comments HS Troponin I (test code = HS Troponin 156 I) [facility] [id number] 18:13:00 Test Item Value Reference Range Interpretation Comments Glucose Lvl (test code = Glucose Lvl) 237 70-99 [facility] [id number] 18:13:00 Test Item Value Reference Range Interpretation Comments BUN (test code = BUN) 46 7-22 [facility] [id number] 18:13:00 Test Item Value Reference Range Interpretation Comments Creatinine Lvl (test code = Creatinine 5.92 0.50-1.40 Lvl) [facility] [id number] 18:13:00 Test Item Value Reference Range Interpretation Comments Sodium Lvl (test code = Sodium Lvl) 134 135-145 [place] [address]-08-05 18:13:00 Test Item Value Reference Range Interpretation Comments Potassium Lvl (test code = Potassium 4.4 3.5-5.1 Lvl) [address]08-05 18:13:00 Test Item Value Reference Range Interpretation Comments Chloride Lvl (test code = Chloride Lvl) 98 95-109 [address]08-05 18:13:00 Test Item Value Reference Range Interpretation Comments CO2 (test code = CO2) 29 24-32 [address]08-05 18:13:00 Test Item Value Reference Range Interpretation Comments Calcium Lvl (test code = Calcium Lvl) 9.2 8.5-10.5 [address]08-05 18:13:00 Test Item Value Reference Range Interpretation Comments Total Protein (test code = Total 6.6 6.4-8.4 Protein) [address]08-05 18:13:00 Test Item Value Reference Range Interpretation Comments Albumin Lvl (test code = Albumin Lvl) 3.1 3.5-5.0 [address]08-05 18:13:00 Test Item Value Reference Range Interpretation Comments ALT (test code = ALT) 36 See_Comment [Auto mated message] The system which ge nerated this result transmit swathi reference range : <=65. The reference range was not used to interpr et this result as deny l/abnormal. [address]08-05 18:13:00 Test Item Value Reference Range Interpretation Comments AST (test code = AST) 28 See_Comment [Auto mated message] The system which ge nerated this result transmit swathi reference range : <=37. The reference range was not used to interpr et this result as deny l/abnormal. [address]08-05 18:13:00 Test Item Value Reference Range Interpretation Comments Alk Phos (test code = Alk Phos) 231 39-136 [address]08-05 18:13:00 Test Item Value Reference Range Interpretation Comments Bili Total (test code = Bili Total) 1.0 0.2-1.3 [address]08-05 18:13:00 Test Item Value Reference Range Interpretation Comments AGAP (test code = AGAP) 11.4 10.0-20.0 [place] [address]-08-05 18:13:00 Test Item Value Reference Range Interpretation Comments B/C Ratio (test code = B/C Ratio) 8 1 6-[address]08-05 18:13:00 Test Item Value Reference Range Interpretation Comments Globulin (test code = Globulin) 3.5 2.7-4.2 [place] [address]-08-05 18:13:00 Test Item Value Reference Range Interpretation Comments A/G Ratio (test code = A/G Ratio) 0.9 1 0.7-1.6 [address]08-05 18:13:00 Test Item Value Reference Range Interpretation Comments eGFR (test code = eGFR) 9 [place] [address]-08-05 18:13:00 Test Item Value Reference Range Interpretation Comments WBC (test code = WBC) 4.8 3.7-10.4 [place] [address]-08-05 18:13:00 Test Item Value Reference Range Interpretation Comments RBC (test code = RBC) 1.93 4.70-6.10 [place] [address]-08-05 18:13:00 Test Item Value Reference Range Interpretation Comments Hgb (test code = Hgb) 7.2 14.0-18.0 [place] [address]-08-05 18:13:00 Test Item Value Reference Range Interpretation Comments Hct (test code = Hct) 21.2 42.0-54.0 [place] [address]-08-05 18:13:00 Test Item Value Reference Range Interpretation Comments MCV (test code = MCV) 110.1 80.0-94.0 [place] [address]-08-05 18:13:00 Test Item Value Reference Range Interpretation Comments MCH (test code = MCH) 37.1 pg 27.0-31.0 [place] [address]-08-05 18:13:00 Test Item Value Reference Range Interpretation Comments MCHC (test code = MCHC) 33.7 32.0-36.0 [place] [address]-08-05 18:13:00 Test Item Value Reference Range Interpretation Comments RDW (test code = RDW) 25.8 11.5-14.5 [place] 264282-08-05 18:13:00 Test Item Value Reference Range Interpretation Comments Platelet (test code = Platelet) 216 133-450 [place] 264282-08-05 18:13:00 Test Item Value Reference Range Interpretation Comments MPV (test code = MPV) 8.2 7.4-10.4 [place] [address]-08-05 18:13:00 Test Item Value Reference Range Interpretation Comments PT (test code = PT) 16.9 s 12.0-14.7 [place] [address]-08-05 18:13:00 Test Item Value Reference Range Interpretation Comments INR (test code = INR) 1.39 1 0.85-1.17 [place] [address]-08-05 18:13:00 Test Item Value Reference Range Interpretation Comments PTT (test code = PTT) 35.0 s 22.9-35.8 [place] [address]-08-05 18:13:00 Test Item Value Reference Range Interpretation Comments Plt Morph (test code = Normal (01/02/22 1:13 PM) Plt Morph) [facility]IV3473[facility] 18:13:00 Test Item Value Reference Range Interpretation Comments Segs (test code = Segs) 76.4 45.0-75.0 [place] 264282-08-05 18:13:00 Test Item Value Reference Range Interpretation Comments Lymphocytes (test code = Lymphocytes) 14.6 20.0-40.0 [place] [address]-08-05 18:13:00 Test Item Value Reference Range Interpretation Comments Monocytes (test code = Monocytes) 7.5 2.0-12.0 [place] [address]-08-05 18:13:00 Test Item Value Reference Range Interpretation Comments Eosinophils (test code = 0.6 See_Comment [A utomated message] The Eosinophils) system which ge nerated this result tra nsmitted reference range : <=4.0. The reference r samantha was not used to int erpret this result as normal/abnormal . [place] [address]-08-05 18:13:00 Test Item Value Reference Range Interpretation Comments Basophils (test code = 0.9 See_Comment [Aut omated message] The Basophils) system which ge nerated this result tra nsmitted reference range : <=1.0. The reference r samantha was not used to int erpret this result as normal/abnormal . [facility] HospitalAseltrsJMVVYROLVC7170-65-48 18:13:00 Test Item Value Reference Range Interpretation Comments Neutrophils # (test code = Neutrophils 3.7 1.5-8.1 #) [facility] HospitalOtmehnhZYQDFQTTXW8721-72-81 18:13:00 Test Item Value Reference Range Interpretation Comments Lymphocytes # (test code = Lymphocytes 0.7 1.0-5.5 #) [facility] HospitalKerbozvRORGIIJZPP0169-71-07 18:13:00 Test Item Value Reference Range Interpretation Comments Monocytes # (test code 0.4 See_Comment [Aut omated message] The = Monocytes #) system which generated this result tra nsmitted reference range : <=0.8. The reference r samantha was not used to int erpret this result as normal/abnormal . [facility] HospitalJhinbxtWNMGJOTITR9597-69-43 18:13:00 Test Item Value Reference Range Interpretation Comments Anisocyte (test code = 2+ *ABN*(01/02/22 1:13 Anisocyte) PM) [facility] HospitalDemzxusUJUIJADUKW8199-43-65 18:13:00 Test Item Value Reference Range Interpretation Comments Macrocyte (test code = 2+ *ABN*(01/02/22 1:13 Macrocyte) PM) [facility]AOBTXGJ4914-37-25 18:13:00 Test Item Value Reference Range Interpretation Comments HS Troponin I (test code = HS Troponin 156 I) [facility] [id number] 18:13:00 Test Item Value Reference Range Interpretation Comments Glucose Lvl (test code = Glucose Lvl) 237 70-99 [facility]2022-08-05 18:13:00 Test Item Value Reference Range Interpretation Comments BUN (test code = BUN) 46 7-22 [facility]2022-08-05 18:13:00 Test Item Value Reference Range Interpretation Comments Creatinine Lvl (test code = Creatinine 5.92 0.50-1.40 Lvl) [facility]2022-08-05 18:13:00 Test Item Value Reference Range Interpretation Comments Sodium Lvl (test code = Sodium Lvl) 134 135-145 [facility]2022-08-05 18:13:00 Test Item Value Reference Range Interpretation Comments Potassium Lvl (test code = Potassium 4.4 3.5-5.1 Lvl) [place] [address]-08-05 18:13:00 Test Item Value Reference Range Interpretation Comments Chloride Lvl (test code = Chloride Lvl) 98 95-109 [place] 412362-08-05 18:13:00 Test Item Value Reference Range Interpretation Comments CO2 (test code = CO2) 29 24-32 [place] [address]-08-05 18:13:00 Test Item Value Reference Range Interpretation Comments Calcium Lvl (test code = Calcium Lvl) 9.2 8.5-10.5 [facility] [place] [id number] 18:13:00 Test Item Value Reference Range Interpretation Comments Total Protein (test code = Total 6.6 6.4-8.4 Protein) [place] [address]-08-05 18:13:00 Test Item Value Reference Range Interpretation Comments Albumin Lvl (test code = Albumin Lvl) 3.1 3.5-5.0 [facility] [id number] 18:13:00 Test Item Value Reference Range Interpretation Comments ALT (test code = ALT) 36 See_Comment [Auto mated message] The system which ge nerated this result transmit swathi reference range : <=65. The reference range was not used to interpr et this result as deny l/abnormal. [facility] [id number] 18:13:00 Test Item Value Reference Range Interpretation Comments AST (test code = AST) 28 See_Comment [Auto mated message] The system which ge nerated this result transmit swathi reference range : <=37. The reference range was not used to interpr et this result as deny l/abnormal. [facility] [id number] 18:13:00 Test Item Value Reference Range Interpretation Comments Alk Phos (test code = Alk Phos) 231 39-136 [facility] [id number] 18:13:00 Test Item Value Reference Range Interpretation Comments Bili Total (test code = Bili Total) 1.0 0.2-1.3 [place] [address]-08-05 18:13:00 Test Item Value Reference Range Interpretation Comments AGAP (test code = AGAP) 11.4 10.0-20.0 [place] [address]-08-05 18:13:00 Test Item Value Reference Range Interpretation Comments B/C Ratio (test code = B/C Ratio) 8 1 6-25 [place] [address]-08-05 18:13:00 Test Item Value Reference Range Interpretation Comments Globulin (test code = Globulin) 3.5 2.7-4.2 [place] [address]-08-05 18:13:00 Test Item Value Reference Range Interpretation Comments A/G Ratio (test code = A/G Ratio) 0.9 1 0.7-1.6 [address]08-05 18:13:00 Test Item Value Reference Range Interpretation Comments eGFR (test code = eGFR) 9 [place] [address]-08-05 18:13:00 Test Item Value Reference Range Interpretation Comments WBC (test code = WBC) 4.8 3.7-10.4 [place] [address]-08-05 18:13:00 Test Item Value Reference Range Interpretation Comments RBC (test code = RBC) 1.93 4.70-6.10 [place] [address]-08-05 18:13:00 Test Item Value Reference Range Interpretation Comments Hgb (test code = Hgb) 7.2 14.0-18.0 [place] [address]-08-05 18:13:00 Test Item Value Reference Range Interpretation Comments Hct (test code = Hct) 21.2 42.0-54.0 [place] [address]-08-05 18:13:00 Test Item Value Reference Range Interpretation Comments MCV (test code = MCV) 110.1 80.0-94.0 [place] [address]-08-05 18:13:00 Test Item Value Reference Range Interpretation Comments MCH (test code = MCH) 37.1 pg 27.0-31.0 [place] [address]-08-05 18:13:00 Test Item Value Reference Range Interpretation Comments MCHC (test code = MCHC) 33.7 32.0-36.0 [place] [address]-08-05 18:13:00 Test Item Value Reference Range Interpretation Comments RDW (test code = RDW) 25.8 11.5-14.5 [place] [address]-08-05 18:13:00 Test Item Value Reference Range Interpretation Comments Platelet (test code = Platelet) 216 133-450 [place] [address]-08-05 18:13:00 Test Item Value Reference Range Interpretation Comments MPV (test code = MPV) 8.2 7.4-10.4 [place] [address]-08-05 18:13:00 Test Item Value Reference Range Interpretation Comments PT (test code = PT) 16.9 s 12.0-14.7 [place] [address]-08-05 18:13:00 Test Item Value Reference Range Interpretation Comments INR (test code = INR) 1.39 1 0.85-1.17 [place] [address]-08-05 18:13:00 Test Item Value Reference Range Interpretation Comments PTT (test code = PTT) 35.0 s 22.9-35.8 [place] [address]-08-05 18:13:00 Test Item Value Reference Range Interpretation Comments Plt Morph (test code = Normal (01/02/22 1:13 PM) Plt Morph) [place] [address]-08-05 18:13:00 Test Item Value Reference Range Interpretation Comments Segs (test code = Segs) 76.4 45.0-75.0 [place] [address]-08-05 18:13:00 Test Item Value Reference Range Interpretation Comments Lymphocytes (test code = Lymphocytes) 14.6 20.0-40.0 [place] [address]-08-05 18:13:00 Test Item Value Reference Range Interpretation Comments Monocytes (test code = Monocytes) 7.5 2.0-12.0 [place] [address]-08-05 18:13:00 Test Item Value Reference Range Interpretation Comments Eosinophils (test code = 0.6 See_Comment [A utomated message] The Eosinophils) system which ge nerated this result tra nsmitted reference range : <=4.0. The reference r samantha was not used to int erpret this result as normal/abnormal . [place] [address]-08-05 18:13:00 Test Item Value Reference Range Interpretation Comments Basophils (test code = 0.9 See_Comment [Aut omated message] The Basophils) system which ge nerated this result tra nsmitted reference range : <=1.0. The reference r samantha was not used to int erpret this result as normal/abnormal . [facility] HospitalSpxoyrqRJIZMPIDWV0275-38-78 18:13:00 Test Item Value Reference Range Interpretation Comments Neutrophils # (test code = Neutrophils 3.7 1.5-8.1 #) [facility] HospitalRbznkecDSNMFWISAI6423-19-31 18:13:00 Test Item Value Reference Range Interpretation Comments Lymphocytes # (test code = Lymphocytes 0.7 1.0-5.5 #) [facility] HospitalNkbsggeXEWWXQWDXQ3562-55-37 18:13:00 Test Item Value Reference Range Interpretation Comments Monocytes # (test code 0.4 See_Comment [Aut omated message] The = Monocytes #) system which generated this result tra nsmitted reference range : <=0.8. The reference r samantha was not used to int erpret this result as normal/abnormal . [place] 264282-08-05 18:13:00 Test Item Value Reference Range Interpretation Comments Anisocyte (test code = 2+ *ABN*(01/02/22 1:13 Anisocyte) PM) [facility] HospitalZppmrhjREFMJCRTUI7103-29-07 18:13:00 Test Item Value Reference Range Interpretation Comments Macrocyte (test code = 2+ *ABN*(01/02/22 1:13 Macrocyte) PM) [facility] [id number] 18:13:00 Test Item Value Reference Range Interpretation Comments HS Troponin I (test code = HS Troponin 156 I) [facility]2022-08-05 18:13:00 Test Item Value Reference Range Interpretation Comments Glucose Lvl (test code = Glucose Lvl) 237 70-99 [facility]2022-08-05 18:13:00 Test Item Value Reference Range Interpretation Comments BUN (test code = BUN) 46 7-22 [facility]2022-08-05 18:13:00 Test Item Value Reference Range Interpretation Comments Creatinine Lvl (test code = Creatinine 5.92 0.50-1.40 Lvl) [facility]2022-08-05 18:13:00 Test Item Value Reference Range Interpretation Comments Sodium Lvl (test code = Sodium Lvl) 134 135-145 [facility]2022-08-05 18:13:00 Test Item Value Reference Range Interpretation Comments Potassium Lvl (test code = Potassium 4.4 3.5-5.1 Lvl) [facility] [place] [id number] 18:13:00 Test Item Value Reference Range Interpretation Comments Chloride Lvl (test code = Chloride Lvl) 98 95-109 [place] 412362-08-05 18:13:00 Test Item Value Reference Range Interpretation Comments CO2 (test code = CO2) 29 24-32 [place]362-08-05 18:13:00 Test Item Value Reference Range Interpretation Comments Calcium Lvl (test code = Calcium Lvl) 9.2 8.5-10.5 [facility] [id number] 18:13:00 Test Item Value Reference Range Interpretation Comments Total Protein (test code = Total 6.6 6.4-8.4 Protein) [place]362-08-05 18:13:00 Test Item Value Reference Range Interpretation Comments Albumin Lvl (test code = Albumin Lvl) 3.1 3.5-5.0 [facility] [id number] 18:13:00 Test Item Value Reference Range Interpretation Comments ALT (test code = ALT) 36 See_Comment [Auto mated message] The system which ge nerated this result transmit swathi reference range : <=65. The reference range was not used to interpr et this result as deny l/abnormal. [facility] [id number] 18:13:00 Test Item Value Reference Range Interpretation Comments AST (test code = AST) 28 See_Comment [Auto mated message] The system which ge nerated this result transmit swathi reference range : <=37. The reference range was not used to interpr et this result as deny l/abnormal. [facility] [id number] 18:13:00 Test Item Value Reference Range Interpretation Comments Alk Phos (test code = Alk Phos) 231 39-136 [facility] [id number] 18:13:00 Test Item Value Reference Range Interpretation Comments Bili Total (test code = Bili Total) 1.0 0.2-1.3 [place] [address]-08-05 18:13:00 Test Item Value Reference Range Interpretation Comments AGAP (test code = AGAP) 11.4 10.0-20.0 [facility] [place] [address]08-05 18:13:00 Test Item Value Reference Range Interpretation Comments B/C Ratio (test code = B/C Ratio) 8 1 6-25 [address]08-05 18:13:00 Test Item Value Reference Range Interpretation Comments Globulin (test code = Globulin) 3.5 2.7-4.2 [address]08-05 18:13:00 Test Item Value Reference Range Interpretation Comments A/G Ratio (test code = A/G Ratio) 0.9 1 0.7-1.6 [address]08-05 18:13:00 Test Item Value Reference Range Interpretation Comments eGFR (test code = eGFR) 9 [place] [address]-08-05 18:13:00 Test Item Value Reference Range Interpretation Comments WBC (test code = WBC) 4.8 3.7-10.4 [address]08-05 18:13:00 Test Item Value Reference Range Interpretation Comments RBC (test code = RBC) 1.93 4.70-6.10 [place] [address]-08-05 18:13:00 Test Item Value Reference Range Interpretation Comments Hgb (test code = Hgb) 7.2 14.0-18.0 [address]08-05 18:13:00 Test Item Value Reference Range Interpretation Comments Hct (test code = Hct) 21.2 42.0-54.0 [address]08-05 18:13:00 Test Item Value Reference Range Interpretation Comments MCV (test code = MCV) 110.1 80.0-94.0 [address]08-05 18:13:00 Test Item Value Reference Range Interpretation Comments MCH (test code = MCH) 37.1 pg 27.0-31.0 [place] [address]-08-05 18:13:00 Test Item Value Reference Range Interpretation Comments MCHC (test code = MCHC) 33.7 32.0-36.0 [place] [address]-08-05 18:13:00 Test Item Value Reference Range Interpretation Comments RDW (test code = RDW) 25.8 11.5-14.5 [place] [address]-08-05 18:13:00 Test Item Value Reference Range Interpretation Comments Platelet (test code = Platelet) 216 133-450 [place] 264282-08-05 18:13:00 Test Item Value Reference Range Interpretation Comments MPV (test code = MPV) 8.2 7.4-10.4 [place] [address]-08-05 18:13:00 Test Item Value Reference Range Interpretation Comments PT (test code = PT) 16.9 s 12.0-14.7 [place] [address]-08-05 18:13:00 Test Item Value Reference Range Interpretation Comments INR (test code = INR) 1.39 1 0.85-1.17 [place] [address]-08-05 18:13:00 Test Item Value Reference Range Interpretation Comments PTT (test code = PTT) 35.0 s 22.9-35.8 [place] [address]-08-05 18:13:00 Test Item Value Reference Range Interpretation Comments Plt Morph (test code = Normal (01/02/22 1:13 PM) Plt Morph) [address]08-05 18:13:00 Test Item Value Reference Range Interpretation Comments Segs (test code = Segs) 76.4 45.0-75.0 [place] [address]-08-05 18:13:00 Test Item Value Reference Range Interpretation Comments Lymphocytes (test code = Lymphocytes) 14.6 20.0-40.0 [place] [address]-08-05 18:13:00 Test Item Value Reference Range Interpretation Comments Monocytes (test code = Monocytes) 7.5 2.0-12.0 [place] [address]-08-05 18:13:00 Test Item Value Reference Range Interpretation Comments Eosinophils (test code = 0.6 See_Comment [A utomated message] The Eosinophils) system which ge nerated this result tra nsmitted reference range : <=4.0. The reference r samantha was not used to int erpret this result as normal/abnormal . [address]08-05 18:13:00 Test Item Value Reference Range Interpretation Comments Basophils (test code = 0.9 See_Comment [Aut omated message] The Basophils) system which ge nerated this result tra nsmitted reference range : <=1.0. The reference r samantha was not used to int erpret this result as normal/abnormal . [place] 264282-08-05 18:13:00 Test Item Value Reference Range Interpretation Comments Neutrophils # (test code = Neutrophils 3.7 1.5-8.1 #) [place] [address]-08-05 18:13:00 Test Item Value Reference Range Interpretation Comments Lymphocytes # (test code = Lymphocytes 0.7 1.0-5.5 #) [place] [address]-08-05 18:13:00 Test Item Value Reference Range Interpretation Comments Monocytes # (test code 0.4 See_Comment [Aut omated message] The = Monocytes #) system which generated this result tra nsmitted reference range : <=0.8. The reference r samantha was not used to int erpret this result as normal/abnormal . [place] [address]-08-05 18:13:00 Test Item Value Reference Range Interpretation Comments Anisocyte (test code = 2+ *ABN*(01/02/22 1:13 Anisocyte) PM) [address]08-05 18:13:00 Test Item Value Reference Range Interpretation Comments Macrocyte (test code = 2+ *ABN*(01/02/22 1:13 Macrocyte) PM) [facility]2022-07-19 09:29:00 Test Item Value Reference Range Interpretation Comments Glucose Lvl (test code = Glucose Lvl) 199 70-99 [place] 412362-07-19 09:29:00 Test Item Value Reference Range Interpretation Comments BUN (test code = BUN) 28 7-22 [place] 412362-07-19 09:29:00 Test Item Value Reference Range Interpretation Comments Creatinine Lvl (test code = Creatinine 4.84 0.50-1.40 Lvl) [place] 412362-07-19 09:29:00 Test Item Value Reference Range Interpretation Comments Sodium Lvl (test code = Sodium Lvl) 134 135-145 [place] 412362-07-19 09:29:00 Test Item Value Reference Range Interpretation Comments Potassium Lvl (test code = Potassium 4.3 3.5-5.1 Lvl) [place] 412362-07-19 09:29:00 Test Item Value Reference Range Interpretation Comments Chloride Lvl (test code = Chloride Lvl) 100 95-109 [place] [address]-07-19 09:29:00 Test Item Value Reference Range Interpretation Comments CO2 (test code = CO2) 28 24-32 [place] 412362-07-19 09:29:00 Test Item Value Reference Range Interpretation Comments Calcium Lvl (test code = Calcium Lvl) 9.4 8.5-10.5 [place] 412362-07-19 09:29:00 Test Item Value Reference Range Interpretation Comments Total Protein (test code = Total 6.6 6.4-8.4 Protein) [place] 412362-07-19 09:29:00 Test Item Value Reference Range Interpretation Comments Albumin Lvl (test code = Albumin Lvl) 3.0 3.5-5.0 [place] [address]-07-19 09:29:00 Test Item Value Reference Range Interpretation Comments ALT (test code = ALT) 92 See_Comment [Auto mated message] The system which ge nerated this result transmit swathi reference range : <=65. The reference range was not used to interpr et this result as deny l/abnormal. [place] 412362-07-19 09:29:00 Test Item Value Reference Range Interpretation Comments AST (test code = AST) 123 See_Comment [Auto mated message] The system which ge nerated this result transmit swathi reference range : <=37. The reference range was not used to interpr et this result as deny l/abnormal. [place]362-07-19 09:29:00 Test Item Value Reference Range Interpretation Comments Alk Phos (test code = Alk Phos) 272 39-136 [place] 412362-07-19 09:29:00 Test Item Value Reference Range Interpretation Comments Bili Total (test code = Bili Total) 0.9 0.2-1.3 [place] [address]-07-19 09:29:00 Test Item Value Reference Range Interpretation Comments AGAP (test code = AGAP) 10.3 10.0-20.0 [place] [address]-07-19 09:29:00 Test Item Value Reference Range Interpretation Comments B/C Ratio (test code = B/C Ratio) 6 1 6-25 [place] 412362-07-19 09:29:00 Test Item Value Reference Range Interpretation Comments Globulin (test code = Globulin) 3.6 2.7-4.2 [facility]2022-07-19 09:29:00 Test Item Value Reference Range Interpretation Comments A/G Ratio (test code = A/G Ratio) 0.8 1 0.7-1.6 [facility]2022-07-19 09:29:00 Test Item Value Reference Range Interpretation Comments eGFR (test code = eGFR) 12 [facility]2022-07-19 09:29:00 Test Item Value Reference Range Interpretation Comments Phosphorus (test code = Phosphorus) 4.3 2.5-4.5 [place] 264282-07-19 09:29:00 Test Item Value Reference Range Interpretation Comments WBC (test code = WBC) 4.7 3.7-10.4 [facility]udkehlGEIFUEYGIT7156-15-70 09:29:00 Test Item Value Reference Range Interpretation Comments RBC (test code = RBC) 2.14 4.70-6.10 [facility] HospitalRwgdkijIABDSAGYBQ6541-49-85 09:29:00 Test Item Value Reference Range Interpretation Comments Hgb (test code = Hgb) 7.6 14.0-18.0 [place] 264282-07-19 09:29:00 Test Item Value Reference Range Interpretation Comments Hct (test code = Hct) 22.8 42.0-54.0 [facility] HospitalCqepuyqWZSEOCHOAS5905-32-76 09:29:00 Test Item Value Reference Range Interpretation Comments MCV (test code = MCV) 106.6 80.0-94.0 [place] 264282-07-19 09:29:00 Test Item Value Reference Range Interpretation Comments MCH (test code = MCH) 35.6 pg 27.0-31.0 [place] 264282-07-19 09:29:00 Test Item Value Reference Range Interpretation Comments MCHC (test code = MCHC) 33.4 32.0-36.0 [place] [address]-07-19 09:29:00 Test Item Value Reference Range Interpretation Comments RDW (test code = RDW) 24.3 11.5-14.5 [place] 264282-07-19 09:29:00 Test Item Value Reference Range Interpretation Comments Platelet (test code = Platelet) 148 133-450 [facility]ceopykHLOXNWFVQA3836[facility] 09:29:00 Test Item Value Reference Range Interpretation Comments MPV (test code = MPV) 8.1 7.4-10.4 [place] 264282-07-19 09:29:00 Test Item Value Reference Range Interpretation Comments D-Dimer (test code = D-Dimer) 3.63 [facility] HospitalUmqzosuZNMPOJIUHY7842-99-65 09:29:00 Test Item Value Reference Range Interpretation Comments Segs (test code = Segs) 74.8 45.0-75.0 [place] 264282-07-19 09:29:00 Test Item Value Reference Range Interpretation Comments Lymphocytes (test code = Lymphocytes) 15.5 20.0-40.0 [place] 264282-07-19 09:29:00 Test Item Value Reference Range Interpretation Comments Monocytes (test code = Monocytes) 9.5 2.0-12.0 [place] 264282-07-19 09:29:00 Test Item Value Reference Range Interpretation Comments Basophils (test code = 0.2 See_Comment [Aut omated message] The Basophils) system which ge nerated this result tra nsmitted reference range : <=1.0. The reference r samantha was not used to int erpret this result as normal/abnormal . [facility] HospitalWvwtidlVFGTBQSNOU4866-78-82 09:29:00 Test Item Value Reference Range Interpretation Comments Neutrophils # (test code = Neutrophils 3.5 1.5-8.1 #) [facility] HospitalFaamshcBESKELKJRT3322-85-29 09:29:00 Test Item Value Reference Range Interpretation Comments Lymphocytes # (test code = Lymphocytes 0.7 1.0-5.5 #) [facility] HospitalNxijashHKNJQVRPZE2207-46-05 09:29:00 Test Item Value Reference Range Interpretation Comments Monocytes # (test code 0.4 See_Comment [Aut omated message] The = Monocytes #) system which generated this result tra nsmitted reference range : <=0.8. The reference r samantha was not used to int erpret this result as normal/abnormal . [place] 264282-07-19 09:29:00 Test Item Value Reference Range Interpretation Comments Macrocyte (test code = 1+ *ABN*(12/16/21 Macrocyte) 4:29 AM) [address]07-19 09:29:00 Test Item Value Reference Range Interpretation Comments C-REACTIVE PROTEIN (test code = 19.0 C-REACTIVE PROTEIN) [place] 412362-07-19 09:29:00 Test Item Value Reference Range Interpretation Comments Glucose Lvl (test code = Glucose Lvl) 199 70-99 [place] 412362-07-19 09:29:00 Test Item Value Reference Range Interpretation Comments BUN (test code = BUN) 28 7-22 [place] 412362-07-19 09:29:00 Test Item Value Reference Range Interpretation Comments Creatinine Lvl (test code = Creatinine 4.84 0.50-1.40 Lvl) [place] 412362-07-19 09:29:00 Test Item Value Reference Range Interpretation Comments Sodium Lvl (test code = Sodium Lvl) 134 135-145 [place] 412362-07-19 09:29:00 Test Item Value Reference Range Interpretation Comments Potassium Lvl (test code = Potassium 4.3 3.5-5.1 Lvl) [place] 412362-07-19 09:29:00 Test Item Value Reference Range Interpretation Comments Chloride Lvl (test code = Chloride Lvl) 100 95-109 [place] 412362-07-19 09:29:00 Test Item Value Reference Range Interpretation Comments CO2 (test code = CO2) 28 24-32 [place] 412362-07-19 09:29:00 Test Item Value Reference Range Interpretation Comments Calcium Lvl (test code = Calcium Lvl) 9.4 8.5-10.5 [place] 412362-07-19 09:29:00 Test Item Value Reference Range Interpretation Comments Total Protein (test code = Total 6.6 6.4-8.4 Protein) [place] 412362-07-19 09:29:00 Test Item Value Reference Range Interpretation Comments Albumin Lvl (test code = Albumin Lvl) 3.0 3.5-5.0 [place] 412362-07-19 09:29:00 Test Item Value Reference Range Interpretation Comments ALT (test code = ALT) 92 See_Comment [Auto mated message] The system which ge nerated this result transmit swathi reference range : <=65. The reference range was not used to interpr et this result as deny l/abnormal. [place] 412362-07-19 09:29:00 Test Item Value Reference Range Interpretation Comments Glucose Lvl (test code = Glucose Lvl) 199 70-99 [place] 412362-07-19 09:29:00 Test Item Value Reference Range Interpretation Comments BUN (test code = BUN) 28 7-22 [place] 412362-07-19 09:29:00 Test Item Value Reference Range Interpretation Comments Creatinine Lvl (test code = Creatinine 4.84 0.50-1.40 Lvl) [place] 412362-07-19 09:29:00 Test Item Value Reference Range Interpretation Comments Sodium Lvl (test code = Sodium Lvl) 134 135-145 [place] 412362-07-19 09:29:00 Test Item Value Reference Range Interpretation Comments AST (test code = AST) 123 See_Comment [Auto mated message] The system which ge nerated this result transmit swathi reference range : <=37. The reference range was not used to interpr et this result as deny l/abnormal. [place] 412362-07-19 09:29:00 Test Item Value Reference Range Interpretation Comments Potassium Lvl (test code = Potassium 4.3 3.5-5.1 Lvl) [place] 412362-07-19 09:29:00 Test Item Value Reference Range Interpretation Comments Chloride Lvl (test code = Chloride Lvl) 100 95-109 [place] 412362-07-19 09:29:00 Test Item Value Reference Range Interpretation Comments CO2 (test code = CO2) 28 24-32 [place] 412362-07-19 09:29:00 Test Item Value Reference Range Interpretation Comments Calcium Lvl (test code = Calcium Lvl) 9.4 8.5-10.5 [place] 412362-07-19 09:29:00 Test Item Value Reference Range Interpretation Comments Total Protein (test code = Total 6.6 6.4-8.4 Protein) [place] 412362-07-19 09:29:00 Test Item Value Reference Range Interpretation Comments Albumin Lvl (test code = Albumin Lvl) 3.0 3.5-5.0 [place] 412362-07-19 09:29:00 Test Item Value Reference Range Interpretation Comments ALT (test code = ALT) 92 See_Comment [Auto mated message] The system which ge nerated this result transmit swathi reference range : <=65. The reference range was not used to interpr et this result as deny l/abnormal. [facility] [id number] 09:29:00 Test Item Value Reference Range Interpretation Comments AST (test code = AST) 123 See_Comment [Auto mated message] The system which ge nerated this result transmit swathi reference range : <=37. The reference range was not used to interpr et this result as deny l/abnormal. [facility] [id number] 09:29:00 Test Item Value Reference Range Interpretation Comments Alk Phos (test code = Alk Phos) 272 39-136 [facility] [id number] 09:29:00 Test Item Value Reference Range Interpretation Comments Bili Total (test code = Bili Total) 0.9 0.2-1.3 [facility] [id number] 09:29:00 Test Item Value Reference Range Interpretation Comments Alk Phos (test code = Alk Phos) 272 39-136 [facility] [id number] 09:29:00 Test Item Value Reference Range Interpretation Comments AGAP (test code = AGAP) 10.3 10.0-20.0 [facility] [id number] 09:29:00 Test Item Value Reference Range Interpretation Comments B/C Ratio (test code = B/C Ratio) 6 1 6-25 [facility] [id number] 09:29:00 Test Item Value Reference Range Interpretation Comments Globulin (test code = Globulin) 3.6 2.7-4.2 [facility] [id number] 09:29:00 Test Item Value Reference Range Interpretation Comments A/G Ratio (test code = A/G Ratio) 0.8 1 0.7-1.6 [facility] [id number] 09:29:00 Test Item Value Reference Range Interpretation Comments eGFR (test code = eGFR) 12 [facility] [id number] 09:29:00 Test Item Value Reference Range Interpretation Comments Phosphorus (test code = Phosphorus) 4.3 2.5-4.5 [place] 264282-07-19 09:29:00 Test Item Value Reference Range Interpretation Comments WBC (test code = WBC) 4.7 3.7-10.4 [place] 264282-07-19 09:29:00 Test Item Value Reference Range Interpretation Comments RBC (test code = RBC) 2.14 4.70-6.10 [facility] HospitalRcrrwkjVLVYPJZVRP3390-46-30 09:29:00 Test Item Value Reference Range Interpretation Comments Hgb (test code = Hgb) 7.6 14.0-18.0 [place] 264282-07-19 09:29:00 Test Item Value Reference Range Interpretation Comments Hct (test code = Hct) 22.8 42.0-54.0 [facility]2022-07-19 09:29:00 Test Item Value Reference Range Interpretation Comments Bili Total (test code = Bili Total) 0.9 0.2-1.3 [facility] HospitalPixvgkyPVQMUFRUDD8335-84-53 09:29:00 Test Item Value Reference Range Interpretation Comments MCV (test code = MCV) 106.6 80.0-94.0 [facility] HospitalVlwtfnmUMAVZDUNPJ8558-71-04 09:29:00 Test Item Value Reference Range Interpretation Comments MCH (test code = MCH) 35.6 pg 27.0-31.0 [place] 264282-07-19 09:29:00 Test Item Value Reference Range Interpretation Comments MCHC (test code = MCHC) 33.4 32.0-36.0 [facility] HospitalMjexqvoDWDXPWFOOM8937-45-71 09:29:00 Test Item Value Reference Range Interpretation Comments RDW (test code = RDW) 24.3 11.5-14.5 [facility] HospitalMnxjhpnAYRWUMJUPF7965-18-96 09:29:00 Test Item Value Reference Range Interpretation Comments Platelet (test code = Platelet) 148 133-450 [place] 264282-07-19 09:29:00 Test Item Value Reference Range Interpretation Comments MPV (test code = MPV) 8.1 7.4-10.4 [place] 264282-07-19 09:29:00 Test Item Value Reference Range Interpretation Comments D-Dimer (test code = D-Dimer) 3.63 [place] 264282-07-19 09:29:00 Test Item Value Reference Range Interpretation Comments Segs (test code = Segs) 74.8 45.0-75.0 [facility] HospitalFhamqedJCFEDYQRXS9170-44-82 09:29:00 Test Item Value Reference Range Interpretation Comments Lymphocytes (test code = Lymphocytes) 15.5 20.0-40.0 [facility] HospitalJwyjlinIXMLCRZJJH5051-95-45 09:29:00 Test Item Value Reference Range Interpretation Comments Monocytes (test code = Monocytes) 9.5 2.0-12.0 [facility] [id number] 09:29:00 Test Item Value Reference Range Interpretation Comments AGAP (test code = AGAP) 10.3 10.0-20.0 [facility] HospitalNabwvifUXEEMHBNXT8297-81-08 09:29:00 Test Item Value Reference Range Interpretation Comments Basophils (test code = 0.2 See_Comment [Aut omated message] The Basophils) system which ge nerated this result tra nsmitted reference range : <=1.0. The reference r samantha was not used to int erpret this result as normal/abnormal . [facility] HospitalQcsydseKCZMFPPXDW1625-33-94 09:29:00 Test Item Value Reference Range Interpretation Comments Neutrophils # (test code = Neutrophils 3.5 1.5-8.1 #) [facility] HospitalTpdrlyfMMHPSOHFSY9883-18-64 09:29:00 Test Item Value Reference Range Interpretation Comments Lymphocytes # (test code = Lymphocytes 0.7 1.0-5.5 #) [facility] HospitalVbfedzgNEXPAJDXYU5096-02-20 09:29:00 Test Item Value Reference Range Interpretation Comments Monocytes # (test code 0.4 See_Comment [Aut omated message] The = Monocytes #) system which generated this result tra nsmitted reference range : <=0.8. The reference r samantha was not used to int erpret this result as normal/abnormal . [facility] HospitalAhiulwkUTMTVYECYQ9725-83-72 09:29:00 Test Item Value Reference Range Interpretation Comments Macrocyte (test code = 1+ *ABN*(12/16/21 Macrocyte) 4:29 AM) [facility]GY[facility]QX6057-37-67 09:29:00 Test Item Value Reference Range Interpretation Comments C-REACTIVE PROTEIN (test code = 19.0 C-REACTIVE PROTEIN) [facility] [id number] 09:29:00 Test Item Value Reference Range Interpretation Comments B/C Ratio (test code = B/C Ratio) 6 1 6-25 [place] 412362-07-19 09:29:00 Test Item Value Reference Range Interpretation Comments Globulin (test code = Globulin) 3.6 2.7-4.2 [place] 412362-07-19 09:29:00 Test Item Value Reference Range Interpretation Comments A/G Ratio (test code = A/G Ratio) 0.8 1 0.7-1.6 [place] [address]-07-19 09:29:00 Test Item Value Reference Range Interpretation Comments eGFR (test code = eGFR) 12 [facility]2022-07-19 09:29:00 Test Item Value Reference Range Interpretation Comments Phosphorus (test code = Phosphorus) 4.3 2.5-4.5 [place] 264282-07-19 09:29:00 Test Item Value Reference Range Interpretation Comments WBC (test code = WBC) 4.7 3.7-10.4 [place] 264282-07-19 09:29:00 Test Item Value Reference Range Interpretation Comments RBC (test code = RBC) 2.14 4.70-6.10 [place] 264282-07-19 09:29:00 Test Item Value Reference Range Interpretation Comments Hgb (test code = Hgb) 7.6 14.0-18.0 [place] 264282-07-19 09:29:00 Test Item Value Reference Range Interpretation Comments Hct (test code = Hct) 22.8 42.0-54.0 [place] 264282-07-19 09:29:00 Test Item Value Reference Range Interpretation Comments MCV (test code = MCV) 106.6 80.0-94.0 [place] [address]-07-19 09:29:00 Test Item Value Reference Range Interpretation Comments MCH (test code = MCH) 35.6 pg 27.0-31.0 [place] 264282-07-19 09:29:00 Test Item Value Reference Range Interpretation Comments MCHC (test code = MCHC) 33.4 32.0-36.0 [place] 264282-07-19 09:29:00 Test Item Value Reference Range Interpretation Comments RDW (test code = RDW) 24.3 11.5-14.5 [place] [address]-07-19 09:29:00 Test Item Value Reference Range Interpretation Comments Platelet (test code = Platelet) 148 133-450 [place] 264282-07-19 09:29:00 Test Item Value Reference Range Interpretation Comments MPV (test code = MPV) 8.1 7.4-10.4 [place] [address]-07-19 09:29:00 Test Item Value Reference Range Interpretation Comments D-Dimer (test code = D-Dimer) 3.63 [place] [address]-07-19 09:29:00 Test Item Value Reference Range Interpretation Comments Segs (test code = Segs) 74.8 45.0-75.0 [place] [address]-07-19 09:29:00 Test Item Value Reference Range Interpretation Comments Lymphocytes (test code = Lymphocytes) 15.5 20.0-40.0 [place] 264282-07-19 09:29:00 Test Item Value Reference Range Interpretation Comments Monocytes (test code = Monocytes) 9.5 2.0-12.0 [place] [address]-07-19 09:29:00 Test Item Value Reference Range Interpretation Comments Basophils (test code = 0.2 See_Comment [Aut omated message] The Basophils) system which ge nerated this result tra nsmitted reference range : <=1.0. The reference r samantha was not used to int erpret this result as normal/abnormal . [facility] HospitalUhsyztyONCVHTSFPO4045-97-78 09:29:00 Test Item Value Reference Range Interpretation Comments Neutrophils # (test code = Neutrophils 3.5 1.5-8.1 #) [place] 264282-07-19 09:29:00 Test Item Value Reference Range Interpretation Comments Lymphocytes # (test code = Lymphocytes 0.7 1.0-5.5 #) [place] [address]-07-19 09:29:00 Test Item Value Reference Range Interpretation Comments Monocytes # (test code 0.4 See_Comment [Aut omated message] The = Monocytes #) system which generated this result tra nsmitted reference range : <=0.8. The reference r samantha was not used to int erpret this result as normal/abnormal . [place] [address]-07-19 09:29:00 Test Item Value Reference Range Interpretation Comments Macrocyte (test code = 1+ *ABN*(12/16/21 Macrocyte) 4:29 AM) [facility]bdfgngRNANFZRMDV5427-97-93 09:29:00 Test Item Value Reference Range Interpretation Comments C-REACTIVE PROTEIN (test code = 19.0 C-REACTIVE PROTEIN) [facility]2022-07-19 09:29:00 Test Item Value Reference Range Interpretation Comments Glucose Lvl (test code = Glucose Lvl) 199 70-99 [place] 412362-07-19 09:29:00 Test Item Value Reference Range Interpretation Comments BUN (test code = BUN) 28 - [facility]2022-07-19 09:29:00 Test Item Value Reference Range Interpretation Comments Creatinine Lvl (test code = Creatinine 4.84 0.50-1.40 Lvl) [place] 412362-07-19 09:29:00 Test Item Value Reference Range Interpretation Comments Sodium Lvl (test code = Sodium Lvl) 134 135-145 [place] 412362-07-19 09:29:00 Test Item Value Reference Range Interpretation Comments Potassium Lvl (test code = Potassium 4.3 3.5-5.1 Lvl) [facility]2022-07-19 09:29:00 Test Item Value Reference Range Interpretation Comments Chloride Lvl (test code = Chloride Lvl) 100 95-109 [place] 412362-07-19 09:29:00 Test Item Value Reference Range Interpretation Comments CO2 (test code = CO2) 28 24-32 [place] 412362-07-19 09:29:00 Test Item Value Reference Range Interpretation Comments Calcium Lvl (test code = Calcium Lvl) 9.4 8.5-10.5 [place] 412362-07-19 09:29:00 Test Item Value Reference Range Interpretation Comments Total Protein (test code = Total 6.6 6.4-8.4 Protein) [place] 412362-07-19 09:29:00 Test Item Value Reference Range Interpretation Comments Albumin Lvl (test code = Albumin Lvl) 3.0 3.5-5.0 [place] 412362-07-19 09:29:00 Test Item Value Reference Range Interpretation Comments ALT (test code = ALT) 92 See_Comment [Auto mated message] The system which ge nerated this result transmit swathi reference range : <=65. The reference range was not used to interpr et this result as deny l/abnormal. [facility] [employer] [id number] 09:29:00 Test Item Value Reference Range Interpretation Comments AST (test code = AST) 123 See_Comment [Auto mated message] The system which ge nerated this result transmit swathi reference range : <=37. The reference range was not used to interpr et this result as deny l/abnormal. [facility] [id number] 09:29:00 Test Item Value Reference Range Interpretation Comments Alk Phos (test code = Alk Phos) 272 39-136 [facility] [id number] 09:29:00 Test Item Value Reference Range Interpretation Comments Bili Total (test code = Bili Total) 0.9 0.2-1.3 [facility] [id number] 09:29:00 Test Item Value Reference Range Interpretation Comments AGAP (test code = AGAP) 10.3 10.0-20.0 [facility] [id number] 09:29:00 Test Item Value Reference Range Interpretation Comments B/C Ratio (test code = B/C Ratio) 6 1 6-25 [facility] [id number] 09:29:00 Test Item Value Reference Range Interpretation Comments Globulin (test code = Globulin) 3.6 2.7-4.2 [facility] [id number] 09:29:00 Test Item Value Reference Range Interpretation Comments A/G Ratio (test code = A/G Ratio) 0.8 1 0.7-1.6 [facility] [id number] 09:29:00 Test Item Value Reference Range Interpretation Comments eGFR (test code = eGFR) 12 [facility] [employer] [id number] 09:29:00 Test Item Value Reference Range Interpretation Comments Phosphorus (test code = Phosphorus) 4.3 2.5-4.5 [facility]landFpzuajmXGWKOCQVNO2828-89-23 09:29:00 Test Item Value Reference Range Interpretation Comments WBC (test code = WBC) 4.7 3.7-10.4 [facility]GvxxouzDSDDSAQUXQ0732-89-44 09:29:00 Test Item Value Reference Range Interpretation Comments RBC (test code = RBC) 2.14 4.70-6.10 [facility] HospitalOzkhoxyOXPWNCYPMX3564-59-18 09:29:00 Test Item Value Reference Range Interpretation Comments Hgb (test code = Hgb) 7.6 14.0-18.0 [place] 264282-07-19 09:29:00 Test Item Value Reference Range Interpretation Comments Hct (test code = Hct) 22.8 42.0-54.0 [facility] HospitalZqtjjkwMBJYHGVRQL2700-30-33 09:29:00 Test Item Value Reference Range Interpretation Comments MCV (test code = MCV) 106.6 80.0-94.0 [facility] HospitalUpcweeiBOWAOKRQWX4385-70-23 09:29:00 Test Item Value Reference Range Interpretation Comments MCH (test code = MCH) 35.6 pg 27.0-31.0 [facility] HospitalBewopekLBANKSOXLQ0697-60-92 09:29:00 Test Item Value Reference Range Interpretation Comments MCHC (test code = MCHC) 33.4 32.0-36.0 [facility] HospitalEdtetdyKDONXPLTKO5674-87-10 09:29:00 Test Item Value Reference Range Interpretation Comments RDW (test code = RDW) 24.3 11.5-14.5 [facility] HospitalSfshnbtMVFBRNAOXA9205-30-90 09:29:00 Test Item Value Reference Range Interpretation Comments Platelet (test code = Platelet) 148 133-450 [facility] HospitalVsxmredGLZLHCDNDQ2074-74-81 09:29:00 Test Item Value Reference Range Interpretation Comments MPV (test code = MPV) 8.1 7.4-10.4 [facility] HospitalRmiareeXDEDTHRHYR8048-63-07 09:29:00 Test Item Value Reference Range Interpretation Comments D-Dimer (test code = D-Dimer) 3.63 [facility] HospitalGnofgjpOQAMYSQZVN7989-68-45 09:29:00 Test Item Value Reference Range Interpretation Comments Segs (test code = Segs) 74.8 45.0-75.0 [place] 264282-07-19 09:29:00 Test Item Value Reference Range Interpretation Comments Lymphocytes (test code = Lymphocytes) 15.5 20.0-40.0 [place] 264282-07-19 09:29:00 Test Item Value Reference Range Interpretation Comments Monocytes (test code = Monocytes) 9.5 2.0-12.0 [facility] HospitalBsuqfkxXKCCOIGENX1550-30-01 09:29:00 Test Item Value Reference Range Interpretation Comments Basophils (test code = 0.2 See_Comment [Aut omated message] The Basophils) system which ge nerated this result tra nsmitted reference range : <=1.0. The reference r samantha was not used to int erpret this result as normal/abnormal . [facility] HospitalHanmqbuVSXZFMMBEB3345-96-96 09:29:00 Test Item Value Reference Range Interpretation Comments Neutrophils # (test code = Neutrophils 3.5 1.5-8.1 #) [facility] HospitalAcwppkfQPVDYYDGOZ8915-93-91 09:29:00 Test Item Value Reference Range Interpretation Comments Lymphocytes # (test code = Lymphocytes 0.7 1.0-5.5 #) [facility] HospitalPqpcttwEMGHPLGFPL7383-58-43 09:29:00 Test Item Value Reference Range Interpretation Comments Monocytes # (test code 0.4 See_Comment [Aut omated message] The = Monocytes #) system which generated this result tra nsmitted reference range : <=0.8. The reference r samantha was not used to int erpret this result as normal/abnormal . [facility] HospitalDvcqlqpPHXXZKQHFU6722-83-37 09:29:00 Test Item Value Reference Range Interpretation Comments Macrocyte (test code = 1+ *ABN*(12/16/21 Macrocyte) 4:29 AM) [facility]wklwmqBVSPKMDKXB6257-99-19 09:29:00 Test Item Value Reference Range Interpretation Comments C-REACTIVE PROTEIN (test code = 19.0 C-REACTIVE PROTEIN) [facility] [id number] 09:29:00 Test Item Value Reference Range Interpretation Comments Glucose Lvl (test code = Glucose Lvl) 199 70-99 [facility] [id number] 09:29:00 Test Item Value Reference Range Interpretation Comments BUN (test code = BUN) 28 12-19 [facility] [id number] 09:29:00 Test Item Value Reference Range Interpretation Comments Creatinine Lvl (test code = Creatinine 4.84 0.50-1.40 Lvl) [facility]2022-07-19 09:29:00 Test Item Value Reference Range Interpretation Comments Sodium Lvl (test code = Sodium Lvl) 134 135-145 [facility] [place] 062172-07-19 09:29:00 Test Item Value Reference Range Interpretation Comments Potassium Lvl (test code = Potassium 4.3 3.5-5.1 Lvl) [place] [address]-07-19 09:29:00 Test Item Value Reference Range Interpretation Comments Chloride Lvl (test code = Chloride Lvl) 100 95-109 [place] [address]-07-19 09:29:00 Test Item Value Reference Range Interpretation Comments CO2 (test code = CO2) 28 24-32 [place] [address]-07-19 09:29:00 Test Item Value Reference Range Interpretation Comments Calcium Lvl (test code = Calcium Lvl) 9.4 8.5-10.5 [place] [address]-07-19 09:29:00 Test Item Value Reference Range Interpretation Comments Total Protein (test code = Total 6.6 6.4-8.4 Protein) [address]07-19 09:29:00 Test Item Value Reference Range Interpretation Comments Albumin Lvl (test code = Albumin Lvl) 3.0 3.5-5.0 [place] 412362-07-19 09:29:00 Test Item Value Reference Range Interpretation Comments ALT (test code = ALT) 92 See_Comment [Auto mated message] The system which ge nerated this result transmit swathi reference range : <=65. The reference range was not used to interpr et this result as deny l/abnormal. [place] [address]-07-19 09:29:00 Test Item Value Reference Range Interpretation Comments AST (test code = AST) 123 See_Comment [Auto mated message] The system which ge nerated this result transmit swathi reference range : <=37. The reference range was not used to interpr et this result as deny l/abnormal. [place] [address]-07-19 09:29:00 Test Item Value Reference Range Interpretation Comments Alk Phos (test code = Alk Phos) 272 39-136 [place] 412362-07-19 09:29:00 Test Item Value Reference Range Interpretation Comments Bili Total (test code = Bili Total) 0.9 0.2-1.3 [place] [address]-07-19 09:29:00 Test Item Value Reference Range Interpretation Comments AGAP (test code = AGAP) 10.3 10.0-20.0 [facility]2022-07-19 09:29:00 Test Item Value Reference Range Interpretation Comments B/C Ratio (test code = B/C Ratio) 6 1 6-25 [facility]2022-07-19 09:29:00 Test Item Value Reference Range Interpretation Comments Globulin (test code = Globulin) 3.6 2.7-4.2 [facility]2022-07-19 09:29:00 Test Item Value Reference Range Interpretation Comments A/G Ratio (test code = A/G Ratio) 0.8 1 0.7-1.6 [place] 412362-07-19 09:29:00 Test Item Value Reference Range Interpretation Comments eGFR (test code = eGFR) 12 [facility]2022-07-19 09:29:00 Test Item Value Reference Range Interpretation Comments Phosphorus (test code = Phosphorus) 4.3 2.5-4.5 [facility]GoqhmogTQMTZUTIFQ9298-35-40 09:29:00 Test Item Value Reference Range Interpretation Comments WBC (test code = WBC) 4.7 3.7-10.4 [facility] HospitalAyufeegGKOJTTQXVO5547-69-65 09:29:00 Test Item Value Reference Range Interpretation Comments RBC (test code = RBC) 2.14 4.70-6.10 [facility] HospitalRfjcvjcGVRNIFXAOR2421-21-15 09:29:00 Test Item Value Reference Range Interpretation Comments Hgb (test code = Hgb) 7.6 14.0-18.0 [facility] HospitalGhvmdrjCDIQPMKEND3613-26-49 09:29:00 Test Item Value Reference Range Interpretation Comments Hct (test code = Hct) 22.8 42.0-54.0 [place] 264282-07-19 09:29:00 Test Item Value Reference Range Interpretation Comments MCV (test code = MCV) 106.6 80.0-94.0 [facility] HospitalDagytivKPEFEJHTGY4759-84-75 09:29:00 Test Item Value Reference Range Interpretation Comments MCH (test code = MCH) 35.6 pg 27.0-31.0 [facility] HospitalZlnasxcHSNLAPFGKB5623-11-56 09:29:00 Test Item Value Reference Range Interpretation Comments MCHC (test code = MCHC) 33.4 32.0-36.0 [place] [address]-07-19 09:29:00 Test Item Value Reference Range Interpretation Comments RDW (test code = RDW) 24.3 11.5-14.5 [place] 264282-07-19 09:29:00 Test Item Value Reference Range Interpretation Comments Platelet (test code = Platelet) 148 133-450 [place] 264282-07-19 09:29:00 Test Item Value Reference Range Interpretation Comments MPV (test code = MPV) 8.1 7.4-10.4 [place] 264282-07-19 09:29:00 Test Item Value Reference Range Interpretation Comments D-Dimer (test code = D-Dimer) 3.63 [place] [address]-07-19 09:29:00 Test Item Value Reference Range Interpretation Comments Segs (test code = Segs) 74.8 45.0-75.0 [place] 264282-07-19 09:29:00 Test Item Value Reference Range Interpretation Comments Lymphocytes (test code = Lymphocytes) 15.5 20.0-40.0 [place] 264282-07-19 09:29:00 Test Item Value Reference Range Interpretation Comments Monocytes (test code = Monocytes) 9.5 2.0-12.0 [place] 264282-07-19 09:29:00 Test Item Value Reference Range Interpretation Comments Basophils (test code = 0.2 See_Comment [Aut omated message] The Basophils) system which ge nerated this result tra nsmitted reference range : <=1.0. The reference r samantha was not used to int erpret this result as normal/abnormal . [place] 264282-07-19 09:29:00 Test Item Value Reference Range Interpretation Comments Neutrophils # (test code = Neutrophils 3.5 1.5-8.1 #) [place] [address]-07-19 09:29:00 Test Item Value Reference Range Interpretation Comments Lymphocytes # (test code = Lymphocytes 0.7 1.0-5.5 #) [place] [address]-07-19 09:29:00 Test Item Value Reference Range Interpretation Comments Monocytes # (test code 0.4 See_Comment [Aut omated message] The = Monocytes #) system which generated this result tra nsmitted reference range : <=0.8. The reference r samantha was not used to int erpret this result as normal/abnormal . [facility]TsqmogbMITUIZNFLC2526-32-08 09:29:00 Test Item Value Reference Range Interpretation Comments Macrocyte (test code = 1+ *ABN*(12/16/21 Macrocyte) 4:29 AM) [facility]DWRQ[facility]QZF1162[facility]53-56 09:29:00 Test Item Value Reference Range Interpretation Comments C-REACTIVE PROTEIN (test code = 19.0 C-REACTIVE PROTEIN) [place] 412362-07-19 09:29:00 Test Item Value Reference Range Interpretation Comments Glucose Lvl (test code = Glucose Lvl) 199 70-99 [place] 412362-07-19 09:29:00 Test Item Value Reference Range Interpretation Comments BUN (test code = BUN) 28 12-19 [place] 412362-07-19 09:29:00 Test Item Value Reference Range Interpretation Comments Creatinine Lvl (test code = Creatinine 4.84 0.50-1.40 Lvl) [place] 412362-07-19 09:29:00 Test Item Value Reference Range Interpretation Comments Sodium Lvl (test code = Sodium Lvl) 134 135-145 [place] 412362-07-19 09:29:00 Test Item Value Reference Range Interpretation Comments Potassium Lvl (test code = Potassium 4.3 3.5-5.1 Lvl) [place] 412362-07-19 09:29:00 Test Item Value Reference Range Interpretation Comments Chloride Lvl (test code = Chloride Lvl) 100 95-109 [place] 412362-07-19 09:29:00 Test Item Value Reference Range Interpretation Comments CO2 (test code = CO2) 28 24-32 [place] 412362-07-19 09:29:00 Test Item Value Reference Range Interpretation Comments Calcium Lvl (test code = Calcium Lvl) 9.4 8.5-10.5 [place] 412362-07-19 09:29:00 Test Item Value Reference Range Interpretation Comments Total Protein (test code = Total 6.6 6.4-8.4 Protein) [place] 412362-07-19 09:29:00 Test Item Value Reference Range Interpretation Comments Albumin Lvl (test code = Albumin Lvl) 3.0 3.5-5.0 [facility] [id number] 09:29:00 Test Item Value Reference Range Interpretation Comments ALT (test code = ALT) 92 See_Comment [Auto mated message] The system which ge nerated this result transmit swathi reference range : <=65. The reference range was not used to interpr et this result as deny l/abnormal. [facility] [id number] 09:29:00 Test Item Value Reference Range Interpretation Comments AST (test code = AST) 123 See_Comment [Auto mated message] The system which ge nerated this result transmit swathi reference range : <=37. The reference range was not used to interpr et this result as deny l/abnormal. [facility] [employer] [id number] 09:29:00 Test Item Value Reference Range Interpretation Comments Alk Phos (test code = Alk Phos) 272 39-136 [facility] [id number] 09:29:00 Test Item Value Reference Range Interpretation Comments Bili Total (test code = Bili Total) 0.9 0.2-1.3 [facility] [id number] 09:29:00 Test Item Value Reference Range Interpretation Comments AGAP (test code = AGAP) 10.3 10.0-20.0 [facility] [id number] 09:29:00 Test Item Value Reference Range Interpretation Comments B/C Ratio (test code = B/C Ratio) 6 1 6-25 [facility] [id number] 09:29:00 Test Item Value Reference Range Interpretation Comments Globulin (test code = Globulin) 3.6 2.7-4.2 [facility] [employer] [id number] 09:29:00 Test Item Value Reference Range Interpretation Comments A/G Ratio (test code = A/G Ratio) 0.8 1 0.7-1.6 [facility] [id number] 09:29:00 Test Item Value Reference Range Interpretation Comments eGFR (test code = eGFR) 12 [facility] [id number] 09:29:00 Test Item Value Reference Range Interpretation Comments Phosphorus (test code = Phosphorus) 4.3 2.5-4.5 [facility] HospitalQkcfmexKSLMWOKQXZ3025-51-85 09:29:00 Test Item Value Reference Range Interpretation Comments WBC (test code = WBC) 4.7 3.7-10.4 [facility] HospitalEeldmabJSSSAYBMFJ3190-16-88 09:29:00 Test Item Value Reference Range Interpretation Comments RBC (test code = RBC) 2.14 4.70-6.10 [facility] HospitalGsgzvuwFZTYVMYPFL9826-73-28 09:29:00 Test Item Value Reference Range Interpretation Comments Hgb (test code = Hgb) 7.6 14.0-18.0 [facility] HospitalLkskutbWHIMCLMKGI5551-74-53 09:29:00 Test Item Value Reference Range Interpretation Comments Hct (test code = Hct) 22.8 42.0-54.0 [facility] HospitalBxnbwzyAWKKUFTNLX5796-27-66 09:29:00 Test Item Value Reference Range Interpretation Comments MCV (test code = MCV) 106.6 80.0-94.0 [facility] HospitalYmnieufXNCLCRFBYO6334-27-90 09:29:00 Test Item Value Reference Range Interpretation Comments MCH (test code = MCH) 35.6 pg 27.0-31.0 [facility] HospitalEkqygayGGCUHRTFLV4047-56-11 09:29:00 Test Item Value Reference Range Interpretation Comments MCHC (test code = MCHC) 33.4 32.0-36.0 [facility] HospitalCmskrxpKXZWFAHGUG0900-28-31 09:29:00 Test Item Value Reference Range Interpretation Comments RDW (test code = RDW) 24.3 11.5-14.5 [facility] HospitalHbxpvdfITTOPPPQUZ3620-61-47 09:29:00 Test Item Value Reference Range Interpretation Comments Platelet (test code = Platelet) 148 133-450 [facility] HospitalEtpdidhJWGCIRZBEW2387-60-61 09:29:00 Test Item Value Reference Range Interpretation Comments MPV (test code = MPV) 8.1 7.4-10.4 [place] 264282-07-19 09:29:00 Test Item Value Reference Range Interpretation Comments D-Dimer (test code = D-Dimer) 3.63 [facility] HospitalLdyfhohURWMJVGILW4659-83-53 09:29:00 Test Item Value Reference Range Interpretation Comments Segs (test code = Segs) 74.8 45.0-75.0 [facility] HospitalOgqkoyiIURCYCHQWH1093-00-60 09:29:00 Test Item Value Reference Range Interpretation Comments Lymphocytes (test code = Lymphocytes) 15.5 20.0-40.0 [place] 264282-07-19 09:29:00 Test Item Value Reference Range Interpretation Comments Monocytes (test code = Monocytes) 9.5 2.0-12.0 [place] 264282-07-19 09:29:00 Test Item Value Reference Range Interpretation Comments Basophils (test code = 0.2 See_Comment [Aut omated message] The Basophils) system which ge nerated this result tra nsmitted reference range : <=1.0. The reference r samantha was not used to int erpret this result as normal/abnormal . [facility] HospitalYbeshyqPDIYSMKJEP8871-49-85 09:29:00 Test Item Value Reference Range Interpretation Comments Neutrophils # (test code = Neutrophils 3.5 1.5-8.1 #) [facility] HospitalGojwfbvIPOTIOOAIR4961-50-04 09:29:00 Test Item Value Reference Range Interpretation Comments Lymphocytes # (test code = Lymphocytes 0.7 1.0-5.5 #) [facility] HospitalHeldqkkBQHLZEDOXU7930-68-54 09:29:00 Test Item Value Reference Range Interpretation Comments Monocytes # (test code 0.4 See_Comment [Aut omated message] The = Monocytes #) system which generated this result tra nsmitted reference range : <=0.8. The reference r samantha was not used to int erpret this result as normal/abnormal . [facility] HospitalUbkjggqVJZUZHZHIE2504-43-74 09:29:00 Test Item Value Reference Range Interpretation Comments Macrocyte (test code = 1+ *ABN*(12/16/21 Macrocyte) 4:29 AM) [facility]ZMEKDPDBAB7466-41-48 09:29:00 Test Item Value Reference Range Interpretation Comments C-REACTIVE PROTEIN (test code = 19.0 C-REACTIVE PROTEIN) [facility] [id number] 09:29:00 Test Item Value Reference Range Interpretation Comments Glucose Lvl (test code = Glucose Lvl) 199 70-99 [facility]2022-07-19 09:29:00 Test Item Value Reference Range Interpretation Comments BUN (test code = BUN) 28 12-19 [place] 412362-07-19 09:29:00 Test Item Value Reference Range Interpretation Comments Creatinine Lvl (test code = Creatinine 4.84 0.50-1.40 Lvl) [facility]2022-07-19 09:29:00 Test Item Value Reference Range Interpretation Comments Sodium Lvl (test code = Sodium Lvl) 134 135-145 [place] 412362-07-19 09:29:00 Test Item Value Reference Range Interpretation Comments Potassium Lvl (test code = Potassium 4.3 3.5-5.1 Lvl) [place] [address]-07-19 09:29:00 Test Item Value Reference Range Interpretation Comments Chloride Lvl (test code = Chloride Lvl) 100 95-109 [place] [address]-07-19 09:29:00 Test Item Value Reference Range Interpretation Comments CO2 (test code = CO2) 28 24-32 [place] [address]-07-19 09:29:00 Test Item Value Reference Range Interpretation Comments Calcium Lvl (test code = Calcium Lvl) 9.4 8.5-10.5 [place] [address]-07-19 09:29:00 Test Item Value Reference Range Interpretation Comments Total Protein (test code = Total 6.6 6.4-8.4 Protein) [place] 412362-07-19 09:29:00 Test Item Value Reference Range Interpretation Comments Albumin Lvl (test code = Albumin Lvl) 3.0 3.5-5.0 [place] 412362-07-19 09:29:00 Test Item Value Reference Range Interpretation Comments ALT (test code = ALT) 92 See_Comment [Auto mated message] The system which ge nerated this result transmit swathi reference range : <=65. The reference range was not used to interpr et this result as deny l/abnormal. [place] 412362-07-19 09:29:00 Test Item Value Reference Range Interpretation Comments AST (test code = AST) 123 See_Comment [Auto mated message] The system which ge nerated this result transmit swathi reference range : <=37. The reference range was not used to interpr et this result as deny l/abnormal. [place] [address]-07-19 09:29:00 Test Item Value Reference Range Interpretation Comments Alk Phos (test code = Alk Phos) 272 39-136 [place] [address]-07-19 09:29:00 Test Item Value Reference Range Interpretation Comments Bili Total (test code = Bili Total) 0.9 0.2-1.3 [place] 412362-07-19 09:29:00 Test Item Value Reference Range Interpretation Comments AGAP (test code = AGAP) 10.3 10.0-20.0 [place] 412362-07-19 09:29:00 Test Item Value Reference Range Interpretation Comments B/C Ratio (test code = B/C Ratio) 6 1 6-25 [place] 412362-07-19 09:29:00 Test Item Value Reference Range Interpretation Comments Globulin (test code = Globulin) 3.6 2.7-4.2 [place] 412362-07-19 09:29:00 Test Item Value Reference Range Interpretation Comments A/G Ratio (test code = A/G Ratio) 0.8 1 0.7-1.6 [place] 412362-07-19 09:29:00 Test Item Value Reference Range Interpretation Comments eGFR (test code = eGFR) 12 [facility]2022-07-19 09:29:00 Test Item Value Reference Range Interpretation Comments Phosphorus (test code = Phosphorus) 4.3 2.5-4.5 [place] 264282-07-19 09:29:00 Test Item Value Reference Range Interpretation Comments WBC (test code = WBC) 4.7 3.7-10.4 [place] 264282-07-19 09:29:00 Test Item Value Reference Range Interpretation Comments RBC (test code = RBC) 2.14 4.70-6.10 [place] 264282-07-19 09:29:00 Test Item Value Reference Range Interpretation Comments Hgb (test code = Hgb) 7.6 14.0-18.0 [place] 264282-07-19 09:29:00 Test Item Value Reference Range Interpretation Comments Hct (test code = Hct) 22.8 42.0-54.0 [place] 264282-07-19 09:29:00 Test Item Value Reference Range Interpretation Comments MCV (test code = MCV) 106.6 80.0-94.0 [place] 264282-07-19 09:29:00 Test Item Value Reference Range Interpretation Comments MCH (test code = MCH) 35.6 pg 27.0-31.0 [place] 264282-07-19 09:29:00 Test Item Value Reference Range Interpretation Comments MCHC (test code = MCHC) 33.4 32.0-36.0 [place] 264282-07-19 09:29:00 Test Item Value Reference Range Interpretation Comments RDW (test code = RDW) 24.3 11.5-14.5 [place] 264282-07-19 09:29:00 Test Item Value Reference Range Interpretation Comments Platelet (test code = Platelet) 148 133-450 [place] 264282-07-19 09:29:00 Test Item Value Reference Range Interpretation Comments MPV (test code = MPV) 8.1 7.4-10.4 [place] 264282-07-19 09:29:00 Test Item Value Reference Range Interpretation Comments D-Dimer (test code = D-Dimer) 3.63 [place] 264282-07-19 09:29:00 Test Item Value Reference Range Interpretation Comments Segs (test code = Segs) 74.8 45.0-75.0 [place] 264282-07-19 09:29:00 Test Item Value Reference Range Interpretation Comments Lymphocytes (test code = Lymphocytes) 15.5 20.0-40.0 [place] 264282-07-19 09:29:00 Test Item Value Reference Range Interpretation Comments Monocytes (test code = Monocytes) 9.5 2.0-12.0 [place] 264282-07-19 09:29:00 Test Item Value Reference Range Interpretation Comments Basophils (test code = 0.2 See_Comment [Aut omated message] The Basophils) system which ge nerated this result tra nsmitted reference range : <=1.0. The reference r samantha was not used to int erpret this result as normal/abnormal . [facility] HospitalQjdkerxMWYDSEIYBD4949-36-98 09:29:00 Test Item Value Reference Range Interpretation Comments Neutrophils # (test code = Neutrophils 3.5 1.5-8.1 #) [place] 264282-07-19 09:29:00 Test Item Value Reference Range Interpretation Comments Lymphocytes # (test code = Lymphocytes 0.7 1.0-5.5 #) [place] 264282-07-19 09:29:00 Test Item Value Reference Range Interpretation Comments Monocytes # (test code 0.4 See_Comment [Aut omated message] The = Monocytes #) system which generated this result tra nsmitted reference range : <=0.8. The reference r samantha was not used to int erpret this result as normal/abnormal . [facility]WefdpheXNUKPVQJBL7132-64-80 09:29:00 Test Item Value Reference Range Interpretation Comments Macrocyte (test code = 1+ *ABN*(12/16/21 Macrocyte) 4:29 AM) [facility]AagqsmoHOVLCYQEWZ5034-19-39 09:29:00 Test Item Value Reference Range Interpretation Comments C-REACTIVE PROTEIN (test code = 19.0 C-REACTIVE PROTEIN) [facility] [id number] 09:29:00 Test Item Value Reference Range Interpretation Comments Glucose Lvl (test code = Glucose Lvl) 199 70-99 [facility]2022-07-19 09:29:00 Test Item Value Reference Range Interpretation Comments BUN (test code = BUN) 28 - [place] 412362-07-19 09:29:00 Test Item Value Reference Range Interpretation Comments Creatinine Lvl (test code = Creatinine 4.84 0.50-1.40 Lvl) [facility]Nav[facility]anN[facility]ENTERBBZQR5415-13-73 09:29:00 Test Item Value Reference Range Interpretation Comments Sodium Lvl (test code = Sodium Lvl) 134 135-145 [facility] [id number] 09:29:00 Test Item Value Reference Range Interpretation Comments Potassium Lvl (test code = Potassium 4.3 3.5-5.1 Lvl) [facility] [id number] 09:29:00 Test Item Value Reference Range Interpretation Comments Chloride Lvl (test code = Chloride Lvl) 100 95-109 [facility]2022-07-19 09:29:00 Test Item Value Reference Range Interpretation Comments CO2 (test code = CO2) 28 24-32 [facility] [id number] 09:29:00 Test Item Value Reference Range Interpretation Comments Calcium Lvl (test code = Calcium Lvl) 9.4 8.5-10.5 [facility] [id number] 09:29:00 Test Item Value Reference Range Interpretation Comments Total Protein (test code = Total 6.6 6.4-8.4 Protein) [facility]annISA[place] [address]398JLHEM7354-71-66 09:29:00 Test Item Value Reference Range Interpretation Comments Albumin Lvl (test code = Albumin Lvl) 3.0 3.5-5.0 [place] [address]-07-19 09:29:00 Test Item Value Reference Range Interpretation Comments ALT (test code = ALT) 92 See_Comment [Auto mated message] The system which ge nerated this result transmit swathi reference range : <=65. The reference range was not used to interpr et this result as deny l/abnormal. [facility] [id number] 09:29:00 Test Item Value Reference Range Interpretation Comments AST (test code = AST) 123 See_Comment [Auto mated message] The system which ge nerated this result transmit swathi reference range : <=37. The reference range was not used to interpr et this result as deny l/abnormal. [facility] [id number] 09:29:00 Test Item Value Reference Range Interpretation Comments Alk Phos (test code = Alk Phos) 272 39-136 [facility] [id number] 09:29:00 Test Item Value Reference Range Interpretation Comments Bili Total (test code = Bili Total) 0.9 0.2-1.3 [facility] [id number] 09:29:00 Test Item Value Reference Range Interpretation Comments AGAP (test code = AGAP) 10.3 10.0-20.0 [facility] [id number] 09:29:00 Test Item Value Reference Range Interpretation Comments B/C Ratio (test code = B/C Ratio) 6 1 6-25 [facility] [id number] 09:29:00 Test Item Value Reference Range Interpretation Comments Globulin (test code = Globulin) 3.6 2.7-4.2 [facility] [id number] 09:29:00 Test Item Value Reference Range Interpretation Comments A/G Ratio (test code = A/G Ratio) 0.8 1 0.7-1.6 [facility] [id number] 09:29:00 Test Item Value Reference Range Interpretation Comments eGFR (test code = eGFR) 12 [facility] [id number] 09:29:00 Test Item Value Reference Range Interpretation Comments Phosphorus (test code = Phosphorus) 4.3 2.5-4.5 [facility] HospitalKbmihscEHIPFZKOPF7840-04-69 09:29:00 Test Item Value Reference Range Interpretation Comments WBC (test code = WBC) 4.7 3.7-10.4 [facility] HospitalBhqzynmOXEAXPCKLP6626-44-52 09:29:00 Test Item Value Reference Range Interpretation Comments RBC (test code = RBC) 2.14 4.70-6.10 [facility] HospitalXzwedktJHPOSMMJAY8509-51-83 09:29:00 Test Item Value Reference Range Interpretation Comments Hgb (test code = Hgb) 7.6 14.0-18.0 [facility] HospitalHbvekzmJJVKRIFNXC0819-20-97 09:29:00 Test Item Value Reference Range Interpretation Comments Hct (test code = Hct) 22.8 42.0-54.0 [facility] HospitalTbsdostDESQTCMPJZ8231-26-23 09:29:00 Test Item Value Reference Range Interpretation Comments MCV (test code = MCV) 106.6 80.0-94.0 [facility] HospitalEymyeizMALARBGYKG2681-32-94 09:29:00 Test Item Value Reference Range Interpretation Comments MCH (test code = MCH) 35.6 pg 27.0-31.0 [facility] HospitalAvrvtzqOPCWVXEWNE9033-59-93 09:29:00 Test Item Value Reference Range Interpretation Comments MCHC (test code = MCHC) 33.4 32.0-36.0 [facility] HospitalWvgwbpoQSBBEPQUYP5457-32-15 09:29:00 Test Item Value Reference Range Interpretation Comments RDW (test code = RDW) 24.3 11.5-14.5 [facility] HospitalDbycubaPWPOAWMOCI4482-35-05 09:29:00 Test Item Value Reference Range Interpretation Comments Platelet (test code = Platelet) 148 133-450 [facility]BgdytusLALCJTFSUD4593-62-83 09:29:00 Test Item Value Reference Range Interpretation Comments MPV (test code = MPV) 8.1 7.4-10.4 [facility] HospitalTxysmixYWQOTZOOLA4138-48-04 09:29:00 Test Item Value Reference Range Interpretation Comments D-Dimer (test code = D-Dimer) 3.63 [facility] HospitalRzboejuLQJPRLXNMY7034-99-48 09:29:00 Test Item Value Reference Range Interpretation Comments Segs (test code = Segs) 74.8 45.0-75.0 [place] 264282-07-19 09:29:00 Test Item Value Reference Range Interpretation Comments Lymphocytes (test code = Lymphocytes) 15.5 20.0-40.0 [facility] HospitalGewoaedJHXXNRMDTF8431-57-10 09:29:00 Test Item Value Reference Range Interpretation Comments Monocytes (test code = Monocytes) 9.5 2.0-12.0 [facility] HospitalSumvsxaQPFLUTLVEC7329-61-61 09:29:00 Test Item Value Reference Range Interpretation Comments Basophils (test code = 0.2 See_Comment [Aut omated message] The Basophils) system which ge nerated this result tra nsmitted reference range : <=1.0. The reference r samantha was not used to int erpret this result as normal/abnormal . [facility] HospitalYilfxalKTAJKNOJSH3845-74-46 09:29:00 Test Item Value Reference Range Interpretation Comments Neutrophils # (test code = Neutrophils 3.5 1.5-8.1 #) [facility] HospitalHtdabgiKHRLMIRDTH9699-46-50 09:29:00 Test Item Value Reference Range Interpretation Comments Lymphocytes # (test code = Lymphocytes 0.7 1.0-5.5 #) [facility] HospitalRqsdskwYCKUMDWKMF1481-23-88 09:29:00 Test Item Value Reference Range Interpretation Comments Monocytes # (test code 0.4 See_Comment [Aut omated message] The = Monocytes #) system which generated this result tra nsmitted reference range : <=0.8. The reference r samantha was not used to int erpret this result as normal/abnormal . [facility] HospitalIimhaxzBETHVPLZUJ1638-04-86 09:29:00 Test Item Value Reference Range Interpretation Comments Macrocyte (test code = 1+ *ABN*(12/16/21 Macrocyte) 4:29 AM) [facility]EES9179[facility]69-78 09:29:00 Test Item Value Reference Range Interpretation Comments C-REACTIVE PROTEIN (test code = 19.0 C-REACTIVE PROTEIN) [facility] [id number] 09:29:00 Test Item Value Reference Range Interpretation Comments Glucose Lvl (test code = Glucose Lvl) 199 70-99 [facility]2022-07-19 09:29:00 Test Item Value Reference Range Interpretation Comments BUN (test code = BUN) 28 12-19 [facility] [id number] 09:29:00 Test Item Value Reference Range Interpretation Comments Creatinine Lvl (test code = Creatinine 4.84 0.50-1.40 Lvl) [place] 412362-07-19 09:29:00 Test Item Value Reference Range Interpretation Comments Sodium Lvl (test code = Sodium Lvl) 134 135-145 [place] 412362-07-19 09:29:00 Test Item Value Reference Range Interpretation Comments Potassium Lvl (test code = Potassium 4.3 3.5-5.1 Lvl) [place] 412362-07-19 09:29:00 Test Item Value Reference Range Interpretation Comments Chloride Lvl (test code = Chloride Lvl) 100 95-109 [place] 412362-07-19 09:29:00 Test Item Value Reference Range Interpretation Comments CO2 (test code = CO2) 28 24-32 [place] 412362-07-19 09:29:00 Test Item Value Reference Range Interpretation Comments Calcium Lvl (test code = Calcium Lvl) 9.4 8.5-10.5 [place] 412362-07-19 09:29:00 Test Item Value Reference Range Interpretation Comments Total Protein (test code = Total 6.6 6.4-8.4 Protein) [place] 412362-07-19 09:29:00 Test Item Value Reference Range Interpretation Comments Albumin Lvl (test code = Albumin Lvl) 3.0 3.5-5.0 [place] 412362-07-19 09:29:00 Test Item Value Reference Range Interpretation Comments ALT (test code = ALT) 92 See_Comment [Auto mated message] The system which ge nerated this result transmit swathi reference range : <=65. The reference range was not used to interpr et this result as deny l/abnormal. [place] 412362-07-19 09:29:00 Test Item Value Reference Range Interpretation Comments AST (test code = AST) 123 See_Comment [Auto mated message] The system which ge nerated this result transmit swathi reference range : <=37. The reference range was not used to interpr et this result as deny l/abnormal. [place] 412362-07-19 09:29:00 Test Item Value Reference Range Interpretation Comments Alk Phos (test code = Alk Phos) 272 39-136 [place] 412362-07-19 09:29:00 Test Item Value Reference Range Interpretation Comments Bili Total (test code = Bili Total) 0.9 0.2-1.3 [place] 412362-07-19 09:29:00 Test Item Value Reference Range Interpretation Comments AGAP (test code = AGAP) 10.3 10.0-20.0 [place] 412362-07-19 09:29:00 Test Item Value Reference Range Interpretation Comments B/C Ratio (test code = B/C Ratio) 6 1 6-25 [place] 412362-07-19 09:29:00 Test Item Value Reference Range Interpretation Comments Globulin (test code = Globulin) 3.6 2.7-4.2 [place] 412362-07-19 09:29:00 Test Item Value Reference Range Interpretation Comments A/G Ratio (test code = A/G Ratio) 0.8 1 0.7-1.6 [place] 412362-07-19 09:29:00 Test Item Value Reference Range Interpretation Comments eGFR (test code = eGFR) 12 [place] 412362-07-19 09:29:00 Test Item Value Reference Range Interpretation Comments Phosphorus (test code = Phosphorus) 4.3 2.5-4.5 [place] 264282-07-19 09:29:00 Test Item Value Reference Range Interpretation Comments WBC (test code = WBC) 4.7 3.7-10.4 [place] 264282-07-19 09:29:00 Test Item Value Reference Range Interpretation Comments RBC (test code = RBC) 2.14 4.70-6.10 [place] 264282-07-19 09:29:00 Test Item Value Reference Range Interpretation Comments Hgb (test code = Hgb) 7.6 14.0-18.0 [place] [address]-07-19 09:29:00 Test Item Value Reference Range Interpretation Comments Hct (test code = Hct) 22.8 42.0-54.0 [place] [address]-07-19 09:29:00 Test Item Value Reference Range Interpretation Comments MCV (test code = MCV) 106.6 80.0-94.0 [place] [address]-07-19 09:29:00 Test Item Value Reference Range Interpretation Comments MCH (test code = MCH) 35.6 pg 27.0-31.0 [facility] HospitalKmnaiqaIYPJKRFIII2800-29-00 09:29:00 Test Item Value Reference Range Interpretation Comments MCHC (test code = MCHC) 33.4 32.0-36.0 [place] 264282-07-19 09:29:00 Test Item Value Reference Range Interpretation Comments RDW (test code = RDW) 24.3 11.5-14.5 [place] 264282-07-19 09:29:00 Test Item Value Reference Range Interpretation Comments Platelet (test code = Platelet) 148 133-450 [facility] HospitalGrqqaejGJYTRFCNPN3734-26-34 09:29:00 Test Item Value Reference Range Interpretation Comments MPV (test code = MPV) 8.1 7.4-10.4 [place] 264282-07-19 09:29:00 Test Item Value Reference Range Interpretation Comments D-Dimer (test code = D-Dimer) 3.63 [facility] HospitalRkqjujmZUVQLWJSCQ3980-69-55 09:29:00 Test Item Value Reference Range Interpretation Comments Segs (test code = Segs) 74.8 45.0-75.0 [facility] HospitalZdckgsbVVLIZCPGJF9606-12-94 09:29:00 Test Item Value Reference Range Interpretation Comments Lymphocytes (test code = Lymphocytes) 15.5 20.0-40.0 [place] 264282-07-19 09:29:00 Test Item Value Reference Range Interpretation Comments Monocytes (test code = Monocytes) 9.5 2.0-12.0 [place] 264282-07-19 09:29:00 Test Item Value Reference Range Interpretation Comments Basophils (test code = 0.2 See_Comment [Aut omated message] The Basophils) system which ge nerated this result tra nsmitted reference range : <=1.0. The reference r samantha was not used to int erpret this result as normal/abnormal . [facility] HospitalXuokyifAYDMMETDPJ6403-64-37 09:29:00 Test Item Value Reference Range Interpretation Comments Neutrophils # (test code = Neutrophils 3.5 1.5-8.1 #) [facility] HospitalWvjpuuxITRFONCIJY5015-58-16 09:29:00 Test Item Value Reference Range Interpretation Comments Lymphocytes # (test code = Lymphocytes 0.7 1.0-5.5 #) [facility] HospitalNtwanwrUNAVQLVVAZ6749-77-99 09:29:00 Test Item Value Reference Range Interpretation Comments Monocytes # (test code 0.4 See_Comment [Aut omated message] The = Monocytes #) system which generated this result tra nsmitted reference range : <=0.8. The reference r samantha was not used to int erpret this result as normal/abnormal . [facility] HospitalUqomvjuQFRUSBTMTV1859-17-86 09:29:00 Test Item Value Reference Range Interpretation Comments Macrocyte (test code = 1+ *ABN*(12/16/21 Macrocyte) 4:29 AM) [facility]VnbgpjtKHXIFBXGUV4195-76-84 09:29:00 Test Item Value Reference Range Interpretation Comments C-REACTIVE PROTEIN (test code = 19.0 C-REACTIVE PROTEIN) [facility]2022-07-19 09:29:00 Test Item Value Reference Range Interpretation Comments Glucose Lvl (test code = Glucose Lvl) 199 70-99 [facility]2022-07-19 09:29:00 Test Item Value Reference Range Interpretation Comments BUN (test code = BUN) 28 - [place] 412362-07-19 09:29:00 Test Item Value Reference Range Interpretation Comments Creatinine Lvl (test code = Creatinine 4.84 0.50-1.40 Lvl) [facility]2022-07-19 09:29:00 Test Item Value Reference Range Interpretation Comments Sodium Lvl (test code = Sodium Lvl) 134 135-145 [facility]2022-07-19 09:29:00 Test Item Value Reference Range Interpretation Comments Potassium Lvl (test code = Potassium 4.3 3.5-5.1 Lvl) [place] 412362-07-19 09:29:00 Test Item Value Reference Range Interpretation Comments Chloride Lvl (test code = Chloride Lvl) 100 95-109 [place] 412362-07-19 09:29:00 Test Item Value Reference Range Interpretation Comments CO2 (test code = CO2) 28 24-32 [place] 412362-07-19 09:29:00 Test Item Value Reference Range Interpretation Comments Calcium Lvl (test code = Calcium Lvl) 9.4 8.5-10.5 [place] 412362-07-19 09:29:00 Test Item Value Reference Range Interpretation Comments Total Protein (test code = Total 6.6 6.4-8.4 Protein) [place] 412362-07-19 09:29:00 Test Item Value Reference Range Interpretation Comments Albumin Lvl (test code = Albumin Lvl) 3.0 3.5-5.0 [facility] [id number] 09:29:00 Test Item Value Reference Range Interpretation Comments ALT (test code = ALT) 92 See_Comment [Auto mated message] The system which ge nerated this result transmit swathi reference range : <=65. The reference range was not used to interpr et this result as deny l/abnormal. [facility] [id number] 09:29:00 Test Item Value Reference Range Interpretation Comments AST (test code = AST) 123 See_Comment [Auto mated message] The system which ge nerated this result transmit swathi reference range : <=37. The reference range was not used to interpr et this result as deny l/abnormal. [facility] [id number] 09:29:00 Test Item Value Reference Range Interpretation Comments Alk Phos (test code = Alk Phos) 272 39-136 [facility] [id number] 09:29:00 Test Item Value Reference Range Interpretation Comments Bili Total (test code = Bili Total) 0.9 0.2-1.3 [facility] [id number] 09:29:00 Test Item Value Reference Range Interpretation Comments AGAP (test code = AGAP) 10.3 10.0-20.0 [facility] [id number] 09:29:00 Test Item Value Reference Range Interpretation Comments B/C Ratio (test code = B/C Ratio) 6 1 6-25 [facility] [id number] 09:29:00 Test Item Value Reference Range Interpretation Comments Globulin (test code = Globulin) 3.6 2.7-4.2 [facility] [id number] 09:29:00 Test Item Value Reference Range Interpretation Comments A/G Ratio (test code = A/G Ratio) 0.8 1 0.7-1.6 [facility] [id number] 09:29:00 Test Item Value Reference Range Interpretation Comments eGFR (test code = eGFR) 12 [facility]2022-07-19 09:29:00 Test Item Value Reference Range Interpretation Comments Phosphorus (test code = Phosphorus) 4.3 2.5-4.5 [facility] HospitalLqrzmczZLATPRNUQN3917-17-44 09:29:00 Test Item Value Reference Range Interpretation Comments WBC (test code = WBC) 4.7 3.7-10.4 [facility] HospitalVmtfcigBWWTFNMTAT8764-03-04 09:29:00 Test Item Value Reference Range Interpretation Comments RBC (test code = RBC) 2.14 4.70-6.10 [facility] HospitalVdfvhfrGQBCCGHYUP7869-17-77 09:29:00 Test Item Value Reference Range Interpretation Comments Hgb (test code = Hgb) 7.6 14.0-18.0 [facility] HospitalYwjibfcQDGASCECHU7178-70-68 09:29:00 Test Item Value Reference Range Interpretation Comments Hct (test code = Hct) 22.8 42.0-54.0 [facility] HospitalJoixsvgMSZOACBHHA0751-25-62 09:29:00 Test Item Value Reference Range Interpretation Comments MCV (test code = MCV) 106.6 80.0-94.0 [facility] HospitalYyyyhzzWPXPMDWNQF1119-75-48 09:29:00 Test Item Value Reference Range Interpretation Comments MCH (test code = MCH) 35.6 pg 27.0-31.0 [facility] HospitalRgqzfliCVHKBFGQDI8890-36-07 09:29:00 Test Item Value Reference Range Interpretation Comments MCHC (test code = MCHC) 33.4 32.0-36.0 [facility] HospitalCvesfogUQWYNIOOTY0436-36-81 09:29:00 Test Item Value Reference Range Interpretation Comments RDW (test code = RDW) 24.3 11.5-14.5 [place] 264282-07-19 09:29:00 Test Item Value Reference Range Interpretation Comments Platelet (test code = Platelet) 148 133-450 [facility] HospitalDzxplkkYHQIHNPSIH9053-22-10 09:29:00 Test Item Value Reference Range Interpretation Comments MPV (test code = MPV) 8.1 7.4-10.4 [facility] HospitalFxwpeadLISMRXAVMS8306-71-21 09:29:00 Test Item Value Reference Range Interpretation Comments D-Dimer (test code = D-Dimer) 3.63 [place] 264282-07-19 09:29:00 Test Item Value Reference Range Interpretation Comments Segs (test code = Segs) 74.8 45.0-75.0 [facility] HospitalAyusxguAPCOGXTSRJ5400-65-58 09:29:00 Test Item Value Reference Range Interpretation Comments Lymphocytes (test code = Lymphocytes) 15.5 20.0-40.0 [facility] HospitalRipdmwmXBLQZSIWYY9748-84-20 09:29:00 Test Item Value Reference Range Interpretation Comments Monocytes (test code = Monocytes) 9.5 2.0-12.0 [facility] HospitalQkakermWBGWMSEBHR9594-17-96 09:29:00 Test Item Value Reference Range Interpretation Comments Basophils (test code = 0.2 See_Comment [Aut omated message] The Basophils) system which ge nerated this result tra nsmitted reference range : <=1.0. The reference r samantha was not used to int erpret this result as normal/abnormal . [facility] HospitalTszmjpyBFERFRLWTN7133-72-33 09:29:00 Test Item Value Reference Range Interpretation Comments Neutrophils # (test code = Neutrophils 3.5 1.5-8.1 #) [facility] HospitalAtvwxgmOVNGZRWSMG2250-66-19 09:29:00 Test Item Value Reference Range Interpretation Comments Lymphocytes # (test code = Lymphocytes 0.7 1.0-5.5 #) [facility] HospitalYrqouqrNLDBASVIRR7700-90-27 09:29:00 Test Item Value Reference Range Interpretation Comments Monocytes # (test code 0.4 See_Comment [Aut omated message] The = Monocytes #) system which generated this result tra nsmitted reference range : <=0.8. The reference r samantha was not used to int erpret this result as normal/abnormal . [facility]KfdxrwxKBMDKCUGCG9301-49-18 09:29:00 Test Item Value Reference Range Interpretation Comments Macrocyte (test code = 1+ *ABN*(12/16/21 Macrocyte) 4:29 AM) [facility]evilleFnujqkkXCHMXCNXVG3080-16-21 09:29:00 Test Item Value Reference Range Interpretation Comments C-REACTIVE PROTEIN (test code = 19.0 C-REACTIVE PROTEIN) [facility] [id number] 09:29:00 Test Item Value Reference Range Interpretation Comments Glucose Lvl (test code = Glucose Lvl) 199 70-99 [facility] [id number] 09:29:00 Test Item Value Reference Range Interpretation Comments BUN (test code = BUN) 28 7-22 [place] 412362-07-19 09:29:00 Test Item Value Reference Range Interpretation Comments Creatinine Lvl (test code = Creatinine 4.84 0.50-1.40 Lvl) [place] 412362-07-19 09:29:00 Test Item Value Reference Range Interpretation Comments Sodium Lvl (test code = Sodium Lvl) 134 135-145 [place] 412362-07-19 09:29:00 Test Item Value Reference Range Interpretation Comments Potassium Lvl (test code = Potassium 4.3 3.5-5.1 Lvl) [place] [address]-07-19 09:29:00 Test Item Value Reference Range Interpretation Comments Chloride Lvl (test code = Chloride Lvl) 100 95-109 [place] 412362-07-19 09:29:00 Test Item Value Reference Range Interpretation Comments CO2 (test code = CO2) 28 24-32 [place] 412362-07-19 09:29:00 Test Item Value Reference Range Interpretation Comments Calcium Lvl (test code = Calcium Lvl) 9.4 8.5-10.5 [place] [address]-07-19 09:29:00 Test Item Value Reference Range Interpretation Comments Total Protein (test code = Total 6.6 6.4-8.4 Protein) [place] 412362-07-19 09:29:00 Test Item Value Reference Range Interpretation Comments Albumin Lvl (test code = Albumin Lvl) 3.0 3.5-5.0 [place] 412362-07-19 09:29:00 Test Item Value Reference Range Interpretation Comments ALT (test code = ALT) 92 See_Comment [Auto mated message] The system which ge nerated this result transmit swathi reference range : <=65. The reference range was not used to interpr et this result as deny l/abnormal. [place] [address]-07-19 09:29:00 Test Item Value Reference Range Interpretation Comments AST (test code = AST) 123 See_Comment [Auto mated message] The system which ge nerated this result transmit swathi reference range : <=37. The reference range was not used to interpr et this result as deny l/abnormal. [place] [address]-07-19 09:29:00 Test Item Value Reference Range Interpretation Comments Alk Phos (test code = Alk Phos) 272 39-136 [place] 412362-07-19 09:29:00 Test Item Value Reference Range Interpretation Comments Bili Total (test code = Bili Total) 0.9 0.2-1.3 [place] 412362-07-19 09:29:00 Test Item Value Reference Range Interpretation Comments AGAP (test code = AGAP) 10.3 10.0-20.0 [place] 412362-07-19 09:29:00 Test Item Value Reference Range Interpretation Comments B/C Ratio (test code = B/C Ratio) 6 1 6-25 [place] 412362-07-19 09:29:00 Test Item Value Reference Range Interpretation Comments Globulin (test code = Globulin) 3.6 2.7-4.2 [place] 412362-07-19 09:29:00 Test Item Value Reference Range Interpretation Comments A/G Ratio (test code = A/G Ratio) 0.8 1 0.7-1.6 [place] 412362-07-19 09:29:00 Test Item Value Reference Range Interpretation Comments eGFR (test code = eGFR) 12 [facility]2022-07-19 09:29:00 Test Item Value Reference Range Interpretation Comments Phosphorus (test code = Phosphorus) 4.3 2.5-4.5 [facility] HospitalZikkqvxTPGOMAWSCA3095-07-01 09:29:00 Test Item Value Reference Range Interpretation Comments WBC (test code = WBC) 4.7 3.7-10.4 [place] 264282-07-19 09:29:00 Test Item Value Reference Range Interpretation Comments RBC (test code = RBC) 2.14 4.70-6.10 [place] 264282-07-19 09:29:00 Test Item Value Reference Range Interpretation Comments Hgb (test code = Hgb) 7.6 14.0-18.0 [place] [address]-07-19 09:29:00 Test Item Value Reference Range Interpretation Comments Hct (test code = Hct) 22.8 42.0-54.0 [place] 264282-07-19 09:29:00 Test Item Value Reference Range Interpretation Comments MCV (test code = MCV) 106.6 80.0-94.0 [place] 264282-07-19 09:29:00 Test Item Value Reference Range Interpretation Comments MCH (test code = MCH) 35.6 pg 27.0-31.0 [place] 264282-07-19 09:29:00 Test Item Value Reference Range Interpretation Comments MCHC (test code = MCHC) 33.4 32.0-36.0 [place] 264282-07-19 09:29:00 Test Item Value Reference Range Interpretation Comments RDW (test code = RDW) 24.3 11.5-14.5 [place] 264282-07-19 09:29:00 Test Item Value Reference Range Interpretation Comments Platelet (test code = Platelet) 148 133-450 [place] 264282-07-19 09:29:00 Test Item Value Reference Range Interpretation Comments MPV (test code = MPV) 8.1 7.4-10.4 [place] 264282-07-19 09:29:00 Test Item Value Reference Range Interpretation Comments D-Dimer (test code = D-Dimer) 3.63 [place] 264282-07-19 09:29:00 Test Item Value Reference Range Interpretation Comments Segs (test code = Segs) 74.8 45.0-75.0 [place] 264282-07-19 09:29:00 Test Item Value Reference Range Interpretation Comments Lymphocytes (test code = Lymphocytes) 15.5 20.0-40.0 [place] 264282-07-19 09:29:00 Test Item Value Reference Range Interpretation Comments Monocytes (test code = Monocytes) 9.5 2.0-12.0 [place] 264282-07-19 09:29:00 Test Item Value Reference Range Interpretation Comments Basophils (test code = 0.2 See_Comment [Aut omated message] The Basophils) system which ge nerated this result tra nsmitted reference range : <=1.0. The reference r samantha was not used to int erpret this result as normal/abnormal . [facility] HospitalUjmltumXTLOQXYMVT9703-01-20 09:29:00 Test Item Value Reference Range Interpretation Comments Neutrophils # (test code = Neutrophils 3.5 1.5-8.1 #) [facility] HospitalKyhkftjHWDDHYEBRY9229-24-40 09:29:00 Test Item Value Reference Range Interpretation Comments Lymphocytes # (test code = Lymphocytes 0.7 1.0-5.5 #) [facility] HospitalUmzzfmuTCUPHEBNIB9070-70-32 09:29:00 Test Item Value Reference Range Interpretation Comments Monocytes # (test code 0.4 See_Comment [Aut omated message] The = Monocytes #) system which generated this result tra nsmitted reference range : <=0.8. The reference r samantha was not used to int erpret this result as normal/abnormal . [facility] HospitalHvmpobhKAWXINAOCQ7016-69-75 09:29:00 Test Item Value Reference Range Interpretation Comments Macrocyte (test code = 1+ *ABN*(12/16/21 Macrocyte) 4:29 AM) [facility]65[facility]44 09:29:00 Test Item Value Reference Range Interpretation Comments C-REACTIVE PROTEIN (test code = 19.0 C-REACTIVE PROTEIN) [facility]FpidtvkCCIJISEWUX0531-43-64 02:28:00 Test Item Value Reference Range Interpretation Comments Hep Bs Ag (test code Negative *NA*(12/15/21 = Hep Bs Ag) 9:28 PM) [facility]JprbtshNUITWBHFLM0654-41-04 02:28:00 Test Item Value Reference Range Interpretation Comments Hep Bs Ag (test code Negative *NA*(12/15/21 = Hep Bs Ag) 9:28 PM) [facility]MdmboxzUWCZHWEWOE5517-52-49 02:28:00 Test Item Value Reference Range Interpretation Comments Hep Bs Ag (test code Negative *NA*(12/15/21 = Hep Bs Ag) 9:28 PM) [facility]TlwtyghTRVSVCCMHC0201-94-23 02:28:00 Test Item Value Reference Range Interpretation Comments Hep Bs Ag (test code Negative *NA*(12/15/21 = Hep Bs Ag) 9:28 PM) [facility] TexasLivhpqpYAVWDNCLTU9287-72-54 02:28:00 Test Item Value Reference Range Interpretation Comments Hep Bs Ag (test code Negative *NA*(12/15/21 = Hep Bs Ag) 9:28 PM) [facility]IizictlEJZWSWFVSF5973-25-34 02:28:00 Test Item Value Reference Range Interpretation Comments Hep Bs Ag (test code Negative *NA*(12/15/21 = Hep Bs Ag) 9:28 PM) [facility] XddfhzlSVWPAOKNFG8066-47-20 02:28:00 Test Item Value Reference Range Interpretation Comments Hep Bs Ag (test code Negative *NA*(12/15/21 = Hep Bs Ag) 9:28 PM) [facility] TdwtofjDXWSCILTVI0046-06-30 02:28:00 Test Item Value Reference Range Interpretation Comments Hep Bs Ag (test code Negative *NA*(12/15/21 = Hep Bs Ag) 9:28 PM) [facility] [id number] 02:28:00 Test Item Value Reference Range Interpretation Comments Hep Bs Ag (test code Negative *NA*(12/15/21 = Hep Bs Ag) 9:28 PM) [facility] SgmedviSMDZHULWFW5585-12-43 02:28:00 Test Item Value Reference Range Interpretation Comments Hep Bs Ag (test code Negative *NA*(12/15/21 = Hep Bs Ag) 9:28 PM) [facility] [id number] 02:28:00 Test Item Value Reference Range Interpretation Comments Hep Bs Ag (test code Negative *NA*(12/15/21 = Hep Bs Ag) 9:28 PM) [facility] [id number] 17:16:00 Test Item Value Reference Range Interpretation Comments Gram Stain Report Gram Stain Performed By: (test code = [facility] St[facility] Report) [facility] Res[facility] w/Gram [id number] 17:16:00 Test Item Value Reference Range Interpretation Comments Culture: Respiratory Moderate Yeast Normal w/Gram Stain (test code Respiratory Lyndsay = Culture: Respiratory Isolated w/Gram Stain) [facility] [id number] 17:16:00 Test Item Value Reference Range Interpretation Comments Gram Stain Report Gram Stain Performed By: (test code = [facility] St[facility] Report) [facility]: Respiratory w/Gram [id number] 17:16:00 Test Item Value Reference Range Interpretation Comments Culture: Respiratory Moderate Yeast Normal w/Gram Stain (test code Respiratory Lyndsay = Culture: Respiratory Isolated w/Gram Stain) [facility] [id number] 17:16:00 Test Item Value Reference Range Interpretation Comments Gram Stain Report Gram Stain Performed By: (test code = [facility] [place] Stain Report) [facility]: Respiratory w/Gram [id number] 17:16:00 Test Item Value Reference Range Interpretation Comments Culture: Respiratory Moderate Yeast Normal w/Gram Stain (test code Respiratory Lyndsay = Culture: Respiratory Isolated w/Gram Stain) [facility] [id number] 17:16:00 Test Item Value Reference Range Interpretation Comments Gram Stain Report Gram Stain Performed By: (test code = [facility] Stain Report) [facility]: Respiratory w/Gram [id number] 17:16:00 Test Item Value Reference Range Interpretation Comments Culture: Respiratory Moderate Yeast Normal w/Gram Stain (test code Respiratory Lyndsay = Culture: Respiratory Isolated w/Gram Stain) [facility] [id number] 17:16:00 Test Item Value Reference Range Interpretation Comments Gram Stain Report Gram Stain Performed By: (test code = [facility] Stain Report) [facility]: Respiratory w/Gram [id number] 17:16:00 Test Item Value Reference Range Interpretation Comments Culture: Respiratory Moderate Yeast Normal w/Gram Stain (test code Respiratory Lyndsay = Culture: Respiratory Isolated w/Gram Stain) [facility] [id number] 17:16:00 Test Item Value Reference Range Interpretation Comments Gram Stain Report Gram Stain Performed By: (test code = [facility] St[facility] Report) [facility]: Respiratory w/Gram [id number] 17:16:00 Test Item Value Reference Range Interpretation Comments Culture: Respiratory Moderate Yeast Normal w/Gram Stain (test code Respiratory Lyndsay = Culture: Respiratory Isolated w/Gram Stain) [facility] [id number] 17:16:00 Test Item Value Reference Range Interpretation Comments Gram Stain Report Gram Stain Performed By: (test code = [facility] St[facility] Report) [facility]: Respiratory w/Gram [id number] 17:16:00 Test Item Value Reference Range Interpretation Comments Culture: Respiratory Moderate Yeast Normal w/Gram Stain (test code Respiratory Lyndsay = Culture: Respiratory Isolated w/Gram Stain) [facility] [id number] 17:16:00 Test Item Value Reference Range Interpretation Comments Gram Stain Report Gram Stain Performed By: (test code = [facility] Stain Report) [facility]: Respiratory w/Gram [id number] 17:16:00 Test Item Value Reference Range Interpretation Comments Culture: Respiratory Moderate Yeast Normal w/Gram Stain (test code Respiratory Lyndsay = Culture: Respiratory Isolated w/Gram Stain) [facility] [id number] 17:16:00 Test Item Value Reference Range Interpretation Comments Gram Stain Report Gram Stain Performed By: (test code = [facility] St[facility] Report) [facility]: Respiratory w/Gram [id number] 17:16:00 Test Item Value Reference Range Interpretation Comments Culture: Respiratory Moderate Yeast Normal w/Gram Stain (test code Respiratory Lyndsay = Culture: Respiratory Isolated w/Gram Stain) [facility] [id number] 17:16:00 Test Item Value Reference Range Interpretation Comments Gram Stain Report Gram Stain Performed By: (test code = [facility] St[facility] Report) [facility]: Respiratory w/Gram [id number] 17:16:00 Test Item Value Reference Range Interpretation Comments Culture: Respiratory Moderate Yeast Normal w/Gram Stain (test code Respiratory Lyndsay = Culture: Respiratory Isolated w/Gram Stain) [facility] [id number] 17:16:00 Test Item Value Reference Range Interpretation Comments Gram Stain Report Gram Stain Performed By: (test code = [facility] St[facility] Report) [facility]: Respiratory w/Gram [id number] 17:16:00 Test Item Value Reference Range Interpretation Comments Culture: Respiratory Moderate Yeast Normal w/Gram Stain (test code Respiratory Lyndsay = Culture: Respiratory Isolated w/Gram Stain) [facility] [id number] 09:04:00 Test Item Value Reference Range Interpretation Comments Glucose Lvl (test code = Glucose Lvl) 59 70-99 [facility] [id number] 09:04:00 Test Item Value Reference Range Interpretation Comments BUN (test code = BUN) 41 7-22 [facility] [id number] 09:04:00 Test Item Value Reference Range Interpretation Comments Creatinine Lvl (test code = Creatinine 7.00 0.50-1.40 Lvl) [facility] [id number] 09:04:00 Test Item Value Reference Range Interpretation Comments Sodium Lvl (test code = Sodium Lvl) 134 135-145 [facility] [id number] 09:04:00 Test Item Value Reference Range Interpretation Comments Potassium Lvl (test code = Potassium 4.0 3.5-5.1 Lvl) [place] 412362-07-18 09:04:00 Test Item Value Reference Range Interpretation Comments Chloride Lvl (test code = Chloride Lvl) 102 95-109 [facility] [id number] 09:04:00 Test Item Value Reference Range Interpretation Comments CO2 (test code = CO2) 25 24-32 [facility] [id number] 09:04:00 Test Item Value Reference Range Interpretation Comments Calcium Lvl (test code = Calcium Lvl) 9.1 8.5-10.5 [facility] [id number] 09:04:00 Test Item Value Reference Range Interpretation Comments Total Protein (test code = Total 6.2 6.4-8.4 Protein) [place] 412362-07-18 09:04:00 Test Item Value Reference Range Interpretation Comments Albumin Lvl (test code = Albumin Lvl) 2.8 3.5-5.0 [facility] [id number] 09:04:00 Test Item Value Reference Range Interpretation Comments ALT (test code = ALT) 78 See_Comment [Auto mated message] The system which ge nerated this result transmit swathi reference range : <=65. The reference range was not used to interpr et this result as deny l/abnormal. [facility] [id number] 09:04:00 Test Item Value Reference Range Interpretation Comments AST (test code = AST) 117 See_Comment [Auto mated message] The system which ge nerated this result transmit swathi reference range : <=37. The reference range was not used to interpr et this result as deny l/abnormal. [facility] [id number] 09:04:00 Test Item Value Reference Range Interpretation Comments Alk Phos (test code = Alk Phos) 251 39-136 [facility] [id number] 09:04:00 Test Item Value Reference Range Interpretation Comments Bili Total (test code = Bili Total) 0.9 0.2-1.3 [place] 412362-07-18 09:04:00 Test Item Value Reference Range Interpretation Comments AGAP (test code = AGAP) 11.0 10.0-20.0 [place] 412362-07-18 09:04:00 Test Item Value Reference Range Interpretation Comments B/C Ratio (test code = B/C Ratio) 6 1 6-25 [place] [address]-07-18 09:04:00 Test Item Value Reference Range Interpretation Comments Globulin (test code = Globulin) 3.4 2.7-4.2 [place] [address]-07-18 09:04:00 Test Item Value Reference Range Interpretation Comments A/G Ratio (test code = A/G Ratio) 0.8 1 0.7-1.6 [place] [address]-07-18 09:04:00 Test Item Value Reference Range Interpretation Comments eGFR (test code = eGFR) 8 [place] 264282-07-18 09:04:00 Test Item Value Reference Range Interpretation Comments D-Dimer (test code = D-Dimer) 3.03 [place] [address]-07-18 09:04:00 Test Item Value Reference Range Interpretation Comments WBC (test code = WBC) 3.6 3.7-10.4 [place] 264282-07-18 09:04:00 Test Item Value Reference Range Interpretation Comments RBC (test code = RBC) 2.07 4.70-6.10 [place] 264282-07-18 09:04:00 Test Item Value Reference Range Interpretation Comments Hgb (test code = Hgb) 7.5 14.0-18.0 [place] 264282-07-18 09:04:00 Test Item Value Reference Range Interpretation Comments Hct (test code = Hct) 22.0 42.0-54.0 [place] [address]-07-18 09:04:00 Test Item Value Reference Range Interpretation Comments MCV (test code = MCV) 106.3 80.0-94.0 [place] [address]-07-18 09:04:00 Test Item Value Reference Range Interpretation Comments MCH (test code = MCH) 36.1 pg 27.0-31.0 [place] [address]-07-18 09:04:00 Test Item Value Reference Range Interpretation Comments MCHC (test code = MCHC) 33.9 32.0-36.0 [place] 264282-07-18 09:04:00 Test Item Value Reference Range Interpretation Comments RDW (test code = RDW) 23.9 11.5-14.5 [place] 264282-07-18 09:04:00 Test Item Value Reference Range Interpretation Comments Platelet (test code = Platelet) 133 133-450 [place] 264282-07-18 09:04:00 Test Item Value Reference Range Interpretation Comments MPV (test code = MPV) 8.1 7.4-10.4 [place] 264282-07-18 09:04:00 Test Item Value Reference Range Interpretation Comments Segs (test code = Segs) 60.8 45.0-75.0 [place] [address]-07-18 09:04:00 Test Item Value Reference Range Interpretation Comments Lymphocytes (test code = Lymphocytes) 22.3 20.0-40.0 [place] 264282-07-18 09:04:00 Test Item Value Reference Range Interpretation Comments Monocytes (test code = Monocytes) 13.9 2.0-12.0 [place] 264282-07-18 09:04:00 Test Item Value Reference Range Interpretation Comments Eosinophils (test code = 2.6 See_Comment [A utomated message] The Eosinophils) system which ge nerated this result tra nsmitted reference range : <=4.0. The reference r samantha was not used to int erpret this result as normal/abnormal . [place] 264282-07-18 09:04:00 Test Item Value Reference Range Interpretation Comments Basophils (test code = 0.4 See_Comment [Aut omated message] The Basophils) system which ge nerated this result tra nsmitted reference range : <=1.0. The reference r samantha was not used to int erpret this result as normal/abnormal . [place] [address]-07-18 09:04:00 Test Item Value Reference Range Interpretation Comments Neutrophils # (test code = Neutrophils 2.2 1.5-8.1 #) [place] 264282-07-18 09:04:00 Test Item Value Reference Range Interpretation Comments Lymphocytes # (test code = Lymphocytes 0.8 1.0-5.5 #) [facility]FX[facility]YYJE[facility]21[facility] 09:04:00 Test Item Value Reference Range Interpretation Comments Monocytes # (test code 0.5 See_Comment [Aut omated message] The = Monocytes #) system which generated this result tra nsmitted reference range : <=0.8. The reference r samantha was not used to int erpret this result as normal/abnormal . [facility] HospitalEjehrzkAFBEIBFXFV0869-19-39 09:04:00 Test Item Value Reference Range Interpretation Comments Eosinophils # (test code 0.1 See_Comment [A utomated message] The = Eosinophils #) system whic h generated this result tra nsmitted reference range : <=0.5. The reference r samantha was not used to int erpret this result as normal/abnormal . [facility] HospitalOozjqolNNSBEWQLZR0005-54-53 09:04:00 Test Item Value Reference Range Interpretation Comments Macrocyte (test code = 1+ *ABN*(12/15/21 Macrocyte) 4:04 AM) [facility]evilleTmoawfpRPQVPUXNIC8889-09-01 09:04:00 Test Item Value Reference Range Interpretation Comments C-REACTIVE PROTEIN (test code = 25.1 C-REACTIVE PROTEIN) [facility]evilleJdfrbxgKHHIKKHNOM3883-45-59 09:04:00 Test Item Value Reference Range Interpretation Comments Vanco Lvl (test code = Vanco Lvl) 15.2 [facility] [id number] 09:04:00 Test Item Value Reference Range Interpretation Comments Glucose Lvl (test code = Glucose Lvl) 59 70-99 [facility] [id number] 09:04:00 Test Item Value Reference Range Interpretation Comments BUN (test code = BUN) 41 7-22 [facility] [id number] 09:04:00 Test Item Value Reference Range Interpretation Comments Creatinine Lvl (test code = Creatinine 7.00 0.50-1.40 Lvl) [facility] [id number] 09:04:00 Test Item Value Reference Range Interpretation Comments Sodium Lvl (test code = Sodium Lvl) 134 135-145 [facility] [id number] 09:04:00 Test Item Value Reference Range Interpretation Comments Potassium Lvl (test code = Potassium 4.0 3.5-5.1 Lvl) [facility] [address]BASSZ5808-10-34 09:04:00 Test Item Value Reference Range Interpretation Comments Chloride Lvl (test code = Chloride Lvl) 102 95-109 [facility]landNaviscanISA[place] [id number] 09:04:00 Test Item Value Reference Range Interpretation Comments CO2 (test code = CO2) 25 24-32 [place] 412362-07-18 09:04:00 Test Item Value Reference Range Interpretation Comments Calcium Lvl (test code = Calcium Lvl) 9.1 8.5-10.5 [facility] [id number] 09:04:00 Test Item Value Reference Range Interpretation Comments Total Protein (test code = Total 6.2 6.4-8.4 Protein) [place] 412362-07-18 09:04:00 Test Item Value Reference Range Interpretation Comments Albumin Lvl (test code = Albumin Lvl) 2.8 3.5-5.0 [facility] [id number] 09:04:00 Test Item Value Reference Range Interpretation Comments ALT (test code = ALT) 78 See_Comment [Auto mated message] The system which ge nerated this result transmit swathi reference range : <=65. The reference range was not used to interpr et this result as deny l/abnormal. [facility] [id number] 09:04:00 Test Item Value Reference Range Interpretation Comments AST (test code = AST) 117 See_Comment [Auto mated message] The system which ge nerated this result transmit swathi reference range : <=37. The reference range was not used to interpr et this result as deny l/abnormal. [facility] [id number] 09:04:00 Test Item Value Reference Range Interpretation Comments Alk Phos (test code = Alk Phos) 251 39-136 [facility] [id number] 09:04:00 Test Item Value Reference Range Interpretation Comments Bili Total (test code = Bili Total) 0.9 0.2-1.3 [place] 412362-07-18 09:04:00 Test Item Value Reference Range Interpretation Comments AGAP (test code = AGAP) 11.0 10.0-20.0 [facility] [id number] 09:04:00 Test Item Value Reference Range Interpretation Comments B/C Ratio (test code = B/C Ratio) 6 1 6-25 [facility] [id number] 09:04:00 Test Item Value Reference Range Interpretation Comments Globulin (test code = Globulin) 3.4 2.7-4.2 [facility] [id number] 09:04:00 Test Item Value Reference Range Interpretation Comments A/G Ratio (test code = A/G Ratio) 0.8 1 0.7-1.6 [facility] [id number] 09:04:00 Test Item Value Reference Range Interpretation Comments eGFR (test code = eGFR) 8 [facility]evilleFyfpiqsXGXQYFMFBG3435-95-81 09:04:00 Test Item Value Reference Range Interpretation Comments D-Dimer (test code = D-Dimer) 3.03 [place] 264282-07-18 09:04:00 Test Item Value Reference Range Interpretation Comments WBC (test code = WBC) 3.6 3.7-10.4 [facility] HospitalDhdsqwyHYYURQJDQB5215-96-13 09:04:00 Test Item Value Reference Range Interpretation Comments RBC (test code = RBC) 2.07 4.70-6.10 [facility]ZojaszxLEKRGWCNND1943-96-16 09:04:00 Test Item Value Reference Range Interpretation Comments Hgb (test code = Hgb) 7.5 14.0-18.0 [facility] HospitalMikqmbtYVNDQVLLCG6584-96-86 09:04:00 Test Item Value Reference Range Interpretation Comments Hct (test code = Hct) 22.0 42.0-54.0 [facility] HospitalOqpjjueHSYWISTTDP0553-94-48 09:04:00 Test Item Value Reference Range Interpretation Comments MCV (test code = MCV) 106.3 80.0-94.0 [place] 264282-07-18 09:04:00 Test Item Value Reference Range Interpretation Comments MCH (test code = MCH) 36.1 pg 27.0-31.0 [facility] HospitalSzyzqggISNSPYZLPD5652-36-50 09:04:00 Test Item Value Reference Range Interpretation Comments MCHC (test code = MCHC) 33.9 32.0-36.0 [facility] HospitalQkgpjmfDFQDPUCAOG8595-43-06 09:04:00 Test Item Value Reference Range Interpretation Comments RDW (test code = RDW) 23.9 11.5-14.5 [place] 264282-07-18 09:04:00 Test Item Value Reference Range Interpretation Comments Platelet (test code = Platelet) 133 133-450 [place] 264282-07-18 09:04:00 Test Item Value Reference Range Interpretation Comments MPV (test code = MPV) 8.1 7.4-10.4 [place] 264282-07-18 09:04:00 Test Item Value Reference Range Interpretation Comments Segs (test code = Segs) 60.8 45.0-75.0 [place] 264282-07-18 09:04:00 Test Item Value Reference Range Interpretation Comments Lymphocytes (test code = Lymphocytes) 22.3 20.0-40.0 [place] 264282-07-18 09:04:00 Test Item Value Reference Range Interpretation Comments Monocytes (test code = Monocytes) 13.9 2.0-12.0 [facility] HospitalOdrnujkOYOPMUBYCB8843-03-45 09:04:00 Test Item Value Reference Range Interpretation Comments Eosinophils (test code = 2.6 See_Comment [A utomated message] The Eosinophils) system which ge nerated this result tra nsmitted reference range : <=4.0. The reference r samantha was not used to int erpret this result as normal/abnormal . [facility] HospitalWczfqueCDYOGBHBKQ7810-89-23 09:04:00 Test Item Value Reference Range Interpretation Comments Basophils (test code = 0.4 See_Comment [Aut omated message] The Basophils) system which ge nerated this result tra nsmitted reference range : <=1.0. The reference r samantha was not used to int erpret this result as normal/abnormal . [facility] HospitalTnvzmxzVUBCVPKEKS5286-59-83 09:04:00 Test Item Value Reference Range Interpretation Comments Neutrophils # (test code = Neutrophils 2.2 1.5-8.1 #) [place] 264282-07-18 09:04:00 Test Item Value Reference Range Interpretation Comments Lymphocytes # (test code = Lymphocytes 0.8 1.0-5.5 #) [place] 264282-07-18 09:04:00 Test Item Value Reference Range Interpretation Comments Monocytes # (test code 0.5 See_Comment [Aut omated message] The = Monocytes #) system which generated this result tra nsmitted reference range : <=0.8. The reference r samantha was not used to int erpret this result as normal/abnormal . [facility]evilleUvawrgaEQPPDDHDRM4508-49-73 09:04:00 Test Item Value Reference Range Interpretation Comments Eosinophils # (test code 0.1 See_Comment [A utomated message] The = Eosinophils #) system whic h generated this result tra nsmitted reference range : <=0.5. The reference r samantha was not used to int erpret this result as normal/abnormal . [facility] HospitalKznvwlaILDCXWARGD7362-25-39 09:04:00 Test Item Value Reference Range Interpretation Comments Macrocyte (test code = 1+ *ABN*(12/15/21 Macrocyte) 4:04 AM) [facility]evilleBahgkojUWNEAFNKTC4019-57-71 09:04:00 Test Item Value Reference Range Interpretation Comments C-REACTIVE PROTEIN (test code = 25.1 C-REACTIVE PROTEIN) [facility]evilleXlnatxvRVAHKTOTWQ4299-67-46 09:04:00 Test Item Value Reference Range Interpretation Comments Vanco Lvl (test code = Vanco Lvl) 15.2 [facility]2022-07-18 09:04:00 Test Item Value Reference Range Interpretation Comments Glucose Lvl (test code = Glucose Lvl) 59 70-99 [place] 412362-07-18 09:04:00 Test Item Value Reference Range Interpretation Comments BUN (test code = BUN) 41 7-22 [place] 412362-07-18 09:04:00 Test Item Value Reference Range Interpretation Comments Creatinine Lvl (test code = Creatinine 7.00 0.50-1.40 Lvl) [place] 412362-07-18 09:04:00 Test Item Value Reference Range Interpretation Comments Sodium Lvl (test code = Sodium Lvl) 134 135-145 [place] 412362-07-18 09:04:00 Test Item Value Reference Range Interpretation Comments Potassium Lvl (test code = Potassium 4.0 3.5-5.1 Lvl) [place] 412362-07-18 09:04:00 Test Item Value Reference Range Interpretation Comments Chloride Lvl (test code = Chloride Lvl) 102 95-109 [place] 412362-07-18 09:04:00 Test Item Value Reference Range Interpretation Comments CO2 (test code = CO2) 25 24-32 [facility] [id number] 09:04:00 Test Item Value Reference Range Interpretation Comments Calcium Lvl (test code = Calcium Lvl) 9.1 8.5-10.5 [facility]Navisc[place]ISA[place] [id number] 09:04:00 Test Item Value Reference Range Interpretation Comments Total Protein (test code = Total 6.2 6.4-8.4 Protein) [place] 412362-07-18 09:04:00 Test Item Value Reference Range Interpretation Comments Albumin Lvl (test code = Albumin Lvl) 2.8 3.5-5.0 [facility] [id number] 09:04:00 Test Item Value Reference Range Interpretation Comments ALT (test code = ALT) 78 See_Comment [Auto mated message] The system which ge nerated this result transmit swathi reference range : <=65. The reference range was not used to interpr et this result as deny l/abnormal. [facility] [id number] 09:04:00 Test Item Value Reference Range Interpretation Comments AST (test code = AST) 117 See_Comment [Auto mated message] The system which ge nerated this result transmit swathi reference range : <=37. The reference range was not used to interpr et this result as deny l/abnormal. [facility] [id number] 09:04:00 Test Item Value Reference Range Interpretation Comments Alk Phos (test code = Alk Phos) 251 39-136 [facility] [id number] 09:04:00 Test Item Value Reference Range Interpretation Comments Bili Total (test code = Bili Total) 0.9 0.2-1.3 [facility] [id number] 09:04:00 Test Item Value Reference Range Interpretation Comments AGAP (test code = AGAP) 11.0 10.0-20.0 [facility] [id number] 09:04:00 Test Item Value Reference Range Interpretation Comments B/C Ratio (test code = B/C Ratio) 6 1 6-25 [facility] [id number] 09:04:00 Test Item Value Reference Range Interpretation Comments Globulin (test code = Globulin) 3.4 2.7-4.2 [facility] [place] 989792-07-18 09:04:00 Test Item Value Reference Range Interpretation Comments Glucose Lvl (test code = Glucose Lvl) 59 70-99 [place] 412362-07-18 09:04:00 Test Item Value Reference Range Interpretation Comments BUN (test code = BUN) 41 7-22 [place] [address]-07-18 09:04:00 Test Item Value Reference Range Interpretation Comments Creatinine Lvl (test code = Creatinine 7.00 0.50-1.40 Lvl) [place] 412362-07-18 09:04:00 Test Item Value Reference Range Interpretation Comments Sodium Lvl (test code = Sodium Lvl) 134 135-145 [place] 412362-07-18 09:04:00 Test Item Value Reference Range Interpretation Comments Potassium Lvl (test code = Potassium 4.0 3.5-5.1 Lvl) [place] 412362-07-18 09:04:00 Test Item Value Reference Range Interpretation Comments Chloride Lvl (test code = Chloride Lvl) 102 95-109 [place] 412362-07-18 09:04:00 Test Item Value Reference Range Interpretation Comments CO2 (test code = CO2) 25 24-32 [place] 412362-07-18 09:04:00 Test Item Value Reference Range Interpretation Comments Calcium Lvl (test code = Calcium Lvl) 9.1 8.5-10.5 [place] 412362-07-18 09:04:00 Test Item Value Reference Range Interpretation Comments Total Protein (test code = Total 6.2 6.4-8.4 Protein) [place] 412362-07-18 09:04:00 Test Item Value Reference Range Interpretation Comments A/G Ratio (test code = A/G Ratio) 0.8 1 0.7-1.6 [place] [address]267-07-18 09:04:00 Test Item Value Reference Range Interpretation Comments Albumin Lvl (test code = Albumin Lvl) 2.8 3.5-5.0 [place] [address]267-07-18 09:04:00 Test Item Value Reference Range Interpretation Comments ALT (test code = ALT) 78 See_Comment [Auto mated message] The system which ge nerated this result transmit swathi reference range : <=65. The reference range was not used to interpr et this result as deny l/abnormal. [place] 412362-07-18 09:04:00 Test Item Value Reference Range Interpretation Comments AST (test code = AST) 117 See_Comment [Auto mated message] The system which ge nerated this result transmit swathi reference range : <=37. The reference range was not used to interpr et this result as deny l/abnormal. [place] 412362-07-18 09:04:00 Test Item Value Reference Range Interpretation Comments Alk Phos (test code = Alk Phos) 251 39-136 [place] 412362-07-18 09:04:00 Test Item Value Reference Range Interpretation Comments Bili Total (test code = Bili Total) 0.9 0.2-1.3 [place] 412362-07-18 09:04:00 Test Item Value Reference Range Interpretation Comments AGAP (test code = AGAP) 11.0 10.0-20.0 [place] 412362-07-18 09:04:00 Test Item Value Reference Range Interpretation Comments B/C Ratio (test code = B/C Ratio) 6 1 6-25 [place] 412362-07-18 09:04:00 Test Item Value Reference Range Interpretation Comments Globulin (test code = Globulin) 3.4 2.7-4.2 [place] 412362-07-18 09:04:00 Test Item Value Reference Range Interpretation Comments A/G Ratio (test code = A/G Ratio) 0.8 1 0.7-1.6 [place] 412362-07-18 09:04:00 Test Item Value Reference Range Interpretation Comments eGFR (test code = eGFR) 8 [place] 412362-07-18 09:04:00 Test Item Value Reference Range Interpretation Comments eGFR (test code = eGFR) 8 [place] 264282-07-18 09:04:00 Test Item Value Reference Range Interpretation Comments D-Dimer (test code = D-Dimer) 3.03 [place] [address]-07-18 09:04:00 Test Item Value Reference Range Interpretation Comments WBC (test code = WBC) 3.6 3.7-10.4 [place] 264282-07-18 09:04:00 Test Item Value Reference Range Interpretation Comments RBC (test code = RBC) 2.07 4.70-6.10 [place] 264282-07-18 09:04:00 Test Item Value Reference Range Interpretation Comments Hgb (test code = Hgb) 7.5 14.0-18.0 [place] [address]-07-18 09:04:00 Test Item Value Reference Range Interpretation Comments Hct (test code = Hct) 22.0 42.0-54.0 [place] 264282-07-18 09:04:00 Test Item Value Reference Range Interpretation Comments MCV (test code = MCV) 106.3 80.0-94.0 [place] 264282-07-18 09:04:00 Test Item Value Reference Range Interpretation Comments MCH (test code = MCH) 36.1 pg 27.0-31.0 [place] [address]-07-18 09:04:00 Test Item Value Reference Range Interpretation Comments MCHC (test code = MCHC) 33.9 32.0-36.0 [place] 264282-07-18 09:04:00 Test Item Value Reference Range Interpretation Comments RDW (test code = RDW) 23.9 11.5-14.5 [place] 264282-07-18 09:04:00 Test Item Value Reference Range Interpretation Comments Platelet (test code = Platelet) 133 133-450 [place] 264282-07-18 09:04:00 Test Item Value Reference Range Interpretation Comments D-Dimer (test code = D-Dimer) 3.03 [place] 264282-07-18 09:04:00 Test Item Value Reference Range Interpretation Comments MPV (test code = MPV) 8.1 7.4-10.4 [place] [address]-07-18 09:04:00 Test Item Value Reference Range Interpretation Comments Segs (test code = Segs) 60.8 45.0-75.0 [place] [address]-07-18 09:04:00 Test Item Value Reference Range Interpretation Comments Lymphocytes (test code = Lymphocytes) 22.3 20.0-40.0 [place] [address]-07-18 09:04:00 Test Item Value Reference Range Interpretation Comments Monocytes (test code = Monocytes) 13.9 2.0-12.0 [place] 264282-07-18 09:04:00 Test Item Value Reference Range Interpretation Comments Eosinophils (test code = 2.6 See_Comment [A utomated message] The Eosinophils) system which ge nerated this result tra nsmitted reference range : <=4.0. The reference r samantha was not used to int erpret this result as normal/abnormal . [place] 264282-07-18 09:04:00 Test Item Value Reference Range Interpretation Comments Basophils (test code = 0.4 See_Comment [Aut omated message] The Basophils) system which ge nerated this result tra nsmitted reference range : <=1.0. The reference r samantha was not used to int erpret this result as normal/abnormal . [place] 264282-07-18 09:04:00 Test Item Value Reference Range Interpretation Comments Neutrophils # (test code = Neutrophils 2.2 1.5-8.1 #) [place] 264282-07-18 09:04:00 Test Item Value Reference Range Interpretation Comments Lymphocytes # (test code = Lymphocytes 0.8 1.0-5.5 #) [facility]:04:00 Test Item Value Reference Range Interpretation Comments Monocytes # (test code 0.5 See_Comment [Aut omated message] The = Monocytes #) system which generated this result tra nsmitted reference range : <=0.8. The reference r samantha was not used to int erpret this result as normal/abnormal . [place] [address]-07-18 09:04:00 Test Item Value Reference Range Interpretation Comments Eosinophils # (test code 0.1 See_Comment [A utomated message] The = Eosinophils #) system whic h generated this result tra nsmitted reference range : <=0.5. The reference r samantha was not used to int erpret this result as normal/abnormal . [place] 264282-07-18 09:04:00 Test Item Value Reference Range Interpretation Comments WBC (test code = WBC) 3.6 3.7-10.4 [facility]ZklsxmbBVDOUDTDNJ2227-99-14 09:04:00 Test Item Value Reference Range Interpretation Comments Macrocyte (test code = 1+ *ABN*(12/15/21 Macrocyte) 4:04 AM) [facility]Mod[facility]duRDDRCKXAXA9461-75-57 09:04:00 Test Item Value Reference Range Interpretation Comments C-REACTIVE PROTEIN (test code = 25.1 C-REACTIVE PROTEIN) [facility]evilleLxpltzcGOTHTWKXOC4021-20-31 09:04:00 Test Item Value Reference Range Interpretation Comments Vanco Lvl (test code = Vanco Lvl) 15.2 [facility]evilleVddkaftIBOGPIQVNV6043-96-85 09:04:00 Test Item Value Reference Range Interpretation Comments RBC (test code = RBC) 2.07 4.70-6.10 [facility]evilleHjygwizDMMPAZSJPT0130-63-29 09:04:00 Test Item Value Reference Range Interpretation Comments Hgb (test code = Hgb) 7.5 14.0-18.0 [facility]SxkfpraORTTLCUNDO3887-62-76 09:04:00 Test Item Value Reference Range Interpretation Comments Hct (test code = Hct) 22.0 42.0-54.0 [facility]evilleGradcboMXUUAKCFAV6511-48-99 09:04:00 Test Item Value Reference Range Interpretation Comments MCV (test code = MCV) 106.3 80.0-94.0 [facility]evilleJcmzvtfSEDFROGXBD5606-32-55 09:04:00 Test Item Value Reference Range Interpretation Comments MCH (test code = MCH) 36.1 pg 27.0-31.0 [facility]evilleWceszlqSJHKABOAUW4138-49-56 09:04:00 Test Item Value Reference Range Interpretation Comments MCHC (test code = MCHC) 33.9 32.0-36.0 [facility]evilleLqzclgdTCYXJTBYLC2246-41-29 09:04:00 Test Item Value Reference Range Interpretation Comments RDW (test code = RDW) 23.9 11.5-14.5 [facility] BeevilleHokqohqSUSLIITTBN0220-10-55 09:04:00 Test Item Value Reference Range Interpretation Comments Platelet (test code = Platelet) 133 133-450 [facility]IxmipccHGTDFYLTCB8116-52-59 09:04:00 Test Item Value Reference Range Interpretation Comments MPV (test code = MPV) 8.1 7.4-10.4 [facility]BptgcdpULDHYLODHL2984-52-82 09:04:00 Test Item Value Reference Range Interpretation Comments Segs (test code = Segs) 60.8 45.0-75.0 [facility]VdiuyfoIOLHXLBIQU9163-07-01 09:04:00 Test Item Value Reference Range Interpretation Comments Lymphocytes (test code = Lymphocytes) 22.3 20.0-40.0 [place] 264282-07-18 09:04:00 Test Item Value Reference Range Interpretation Comments Monocytes (test code = Monocytes) 13.9 2.0-12.0 [facility] HospitalSzsvwnzKOEHDTCMHN3188-74-35 09:04:00 Test Item Value Reference Range Interpretation Comments Eosinophils (test code = 2.6 See_Comment [A utomated message] The Eosinophils) system which ge nerated this result tra nsmitted reference range : <=4.0. The reference r samantha was not used to int erpret this result as normal/abnormal . [facility] HospitalDyoghupUXLINVBVNT6139-08-69 09:04:00 Test Item Value Reference Range Interpretation Comments Basophils (test code = 0.4 See_Comment [Aut omated message] The Basophils) system which ge nerated this result tra nsmitted reference range : <=1.0. The reference r samantha was not used to int erpret this result as normal/abnormal . [facility] HospitalMhrfsgeSRHKGSAHVC3446-60-22 09:04:00 Test Item Value Reference Range Interpretation Comments Neutrophils # (test code = Neutrophils 2.2 1.5-8.1 #) [facility] HospitalPlhpqxjYXIBVXKARZ2765-35-40 09:04:00 Test Item Value Reference Range Interpretation Comments Lymphocytes # (test code = Lymphocytes 0.8 1.0-5.5 #) [facility] HospitalImkutriYQFCRDZTVB1868-67-25 09:04:00 Test Item Value Reference Range Interpretation Comments Monocytes # (test code 0.5 See_Comment [Aut omated message] The = Monocytes #) system which generated this result tra nsmitted reference range : <=0.8. The reference r samantha was not used to int erpret this result as normal/abnormal . [facility] HospitalRvxjozwECOAZDWSAI5245-38-39 09:04:00 Test Item Value Reference Range Interpretation Comments Eosinophils # (test code 0.1 See_Comment [A utomated message] The = Eosinophils #) system whic h generated this result tra nsmitted reference range : <=0.5. The reference r samantha was not used to int erpret this result as normal/abnormal . [facility] HospitalJaoarxhKJQJVACJIC3445-67-30 09:04:00 Test Item Value Reference Range Interpretation Comments Macrocyte (test code = 1+ *ABN*(12/15/21 Macrocyte) 4:04 AM) [facility]evilleIrofbtsYAZTRUZRXL0737-89-01 09:04:00 Test Item Value Reference Range Interpretation Comments C-REACTIVE PROTEIN (test code = 25.1 C-REACTIVE PROTEIN) [facility]evilleHjcugneFCURWBIIFU1170-57-47 09:04:00 Test Item Value Reference Range Interpretation Comments Vanco Lvl (test code = Vanco Lvl) 15.2 [facility]2022-07-18 09:04:00 Test Item Value Reference Range Interpretation Comments Glucose Lvl (test code = Glucose Lvl) 59 70-99 [facility]2022-07-18 09:04:00 Test Item Value Reference Range Interpretation Comments BUN (test code = BUN) 41 - [facility]2022-07-18 09:04:00 Test Item Value Reference Range Interpretation Comments Creatinine Lvl (test code = Creatinine 7.00 0.50-1.40 Lvl) [facility]2022-07-18 09:04:00 Test Item Value Reference Range Interpretation Comments Sodium Lvl (test code = Sodium Lvl) 134 135-145 [facility]2022-07-18 09:04:00 Test Item Value Reference Range Interpretation Comments Potassium Lvl (test code = Potassium 4.0 3.5-5.1 Lvl) [facility]2022-07-18 09:04:00 Test Item Value Reference Range Interpretation Comments Chloride Lvl (test code = Chloride Lvl) 102 95-109 [facility]2022-07-18 09:04:00 Test Item Value Reference Range Interpretation Comments CO2 (test code = CO2) 25 24-32 [facility]2022-07-18 09:04:00 Test Item Value Reference Range Interpretation Comments Calcium Lvl (test code = Calcium Lvl) 9.1 8.5-10.5 [facility]2022-07-18 09:04:00 Test Item Value Reference Range Interpretation Comments Total Protein (test code = Total 6.2 6.4-8.4 Protein) [facility]2022-07-18 09:04:00 Test Item Value Reference Range Interpretation Comments Albumin Lvl (test code = Albumin Lvl) 2.8 3.5-5.0 [facility] [employer] [id number] 09:04:00 Test Item Value Reference Range Interpretation Comments ALT (test code = ALT) 78 See_Comment [Auto mated message] The system which ge nerated this result transmit swathi reference range : <=65. The reference range was not used to interpr et this result as deny l/abnormal. [facility] [employer] [id number] 09:04:00 Test Item Value Reference Range Interpretation Comments AST (test code = AST) 117 See_Comment [Auto mated message] The system which ge nerated this result transmit swathi reference range : <=37. The reference range was not used to interpr et this result as deny l/abnormal. [facility] [employer] FWXOG3578-02-84 09:04:00 Test Item Value Reference Range Interpretation Comments Alk Phos (test code = Alk Phos) 251 39-136 [facility] [employer] [id number] 09:04:00 Test Item Value Reference Range Interpretation Comments Bili Total (test code = Bili Total) 0.9 0.2-1.3 [facility] [employer] [id number] 09:04:00 Test Item Value Reference Range Interpretation Comments AGAP (test code = AGAP) 11.0 10.0-20.0 [facility] [employer] [id number] 09:04:00 Test Item Value Reference Range Interpretation Comments B/C Ratio (test code = B/C Ratio) 6 1 6-25 [facility] [employer] [id number] 09:04:00 Test Item Value Reference Range Interpretation Comments Globulin (test code = Globulin) 3.4 2.7-4.2 [facility] [employer] [id number] 09:04:00 Test Item Value Reference Range Interpretation Comments A/G Ratio (test code = A/G Ratio) 0.8 1 0.7-1.6 [facility] [employer] [id number] 09:04:00 Test Item Value Reference Range Interpretation Comments eGFR (test code = eGFR) 8 [facility]IenxijrMCPASXMEBK7371-54-93 09:04:00 Test Item Value Reference Range Interpretation Comments D-Dimer (test code = D-Dimer) 3.03 [facility] ZglavklGWRBNPLGOM9542-54-37 09:04:00 Test Item Value Reference Range Interpretation Comments WBC (test code = WBC) 3.6 3.7-10.4 [place] 264282-07-18 09:04:00 Test Item Value Reference Range Interpretation Comments RBC (test code = RBC) 2.07 4.70-6.10 [place] 264282-07-18 09:04:00 Test Item Value Reference Range Interpretation Comments Hgb (test code = Hgb) 7.5 14.0-18.0 [place] 264282-07-18 09:04:00 Test Item Value Reference Range Interpretation Comments Hct (test code = Hct) 22.0 42.0-54.0 [place] 264282-07-18 09:04:00 Test Item Value Reference Range Interpretation Comments MCV (test code = MCV) 106.3 80.0-94.0 [place] 264282-07-18 09:04:00 Test Item Value Reference Range Interpretation Comments MCH (test code = MCH) 36.1 pg 27.0-31.0 [place] 264282-07-18 09:04:00 Test Item Value Reference Range Interpretation Comments MCHC (test code = MCHC) 33.9 32.0-36.0 [place] 264282-07-18 09:04:00 Test Item Value Reference Range Interpretation Comments RDW (test code = RDW) 23.9 11.5-14.5 [place] 264282-07-18 09:04:00 Test Item Value Reference Range Interpretation Comments Platelet (test code = Platelet) 133 133-450 [place] 264282-07-18 09:04:00 Test Item Value Reference Range Interpretation Comments MPV (test code = MPV) 8.1 7.4-10.4 [place] 264282-07-18 09:04:00 Test Item Value Reference Range Interpretation Comments Segs (test code = Segs) 60.8 45.0-75.0 [place] 264282-07-18 09:04:00 Test Item Value Reference Range Interpretation Comments Lymphocytes (test code = Lymphocytes) 22.3 20.0-40.0 [place] 264282-07-18 09:04:00 Test Item Value Reference Range Interpretation Comments Monocytes (test code = Monocytes) 13.9 2.0-12.0 [facility] HospitalQuzjasvVFIBFEDLWY3928-76-25 09:04:00 Test Item Value Reference Range Interpretation Comments Eosinophils (test code = 2.6 See_Comment [A utomated message] The Eosinophils) system which ge nerated this result tra nsmitted reference range : <=4.0. The reference r samantha was not used to int erpret this result as normal/abnormal . [facility] HospitalZjdfxzvKJULSGREXV4683-98-23 09:04:00 Test Item Value Reference Range Interpretation Comments Basophils (test code = 0.4 See_Comment [Aut omated message] The Basophils) system which ge nerated this result tra nsmitted reference range : <=1.0. The reference r samantha was not used to int erpret this result as normal/abnormal . [facility] HospitalSjyeiydSBYPWNWBAY1393-21-88 09:04:00 Test Item Value Reference Range Interpretation Comments Neutrophils # (test code = Neutrophils 2.2 1.5-8.1 #) [facility] HospitalRfoeqbnUPMOENOAWE4839-86-70 09:04:00 Test Item Value Reference Range Interpretation Comments Lymphocytes # (test code = Lymphocytes 0.8 1.0-5.5 #) [facility] HospitalSopdmulUBPQDPNNGO4611-85-79 09:04:00 Test Item Value Reference Range Interpretation Comments Monocytes # (test code 0.5 See_Comment [Aut omated message] The = Monocytes #) system which generated this result tra nsmitted reference range : <=0.8. The reference r samantha was not used to int erpret this result as normal/abnormal . [facility] HospitalOuhmirmUSESGCALLC0042-98-52 09:04:00 Test Item Value Reference Range Interpretation Comments Eosinophils # (test code 0.1 See_Comment [A utomated message] The = Eosinophils #) system whic h generated this result tra nsmitted reference range : <=0.5. The reference r samantha was not used to int erpret this result as normal/abnormal . [facility] HospitalYlthdtaNZIWBNEUQU7122-91-00 09:04:00 Test Item Value Reference Range Interpretation Comments Macrocyte (test code = 1+ *ABN*(12/15/21 Macrocyte) 4:04 AM) [facility]ag[facility]cpXUMGPXQGPP5004-10-04 09:04:00 Test Item Value Reference Range Interpretation Comments C-REACTIVE PROTEIN (test code = 25.1 C-REACTIVE PROTEIN) [facility]evilleFalgnuhZQMJWZBALO8181-75-66 09:04:00 Test Item Value Reference Range Interpretation Comments Vanco Lvl (test code = Vanco Lvl) 15.2 [place] 412362-07-18 09:04:00 Test Item Value Reference Range Interpretation Comments Glucose Lvl (test code = Glucose Lvl) 59 70-99 [place] 412362-07-18 09:04:00 Test Item Value Reference Range Interpretation Comments BUN (test code = BUN) 41 7-22 [place] 412362-07-18 09:04:00 Test Item Value Reference Range Interpretation Comments Creatinine Lvl (test code = Creatinine 7.00 0.50-1.40 Lvl) [place] 412362-07-18 09:04:00 Test Item Value Reference Range Interpretation Comments Sodium Lvl (test code = Sodium Lvl) 134 135-145 [place] 412362-07-18 09:04:00 Test Item Value Reference Range Interpretation Comments Potassium Lvl (test code = Potassium 4.0 3.5-5.1 Lvl) [facility]2022-07-18 09:04:00 Test Item Value Reference Range Interpretation Comments Chloride Lvl (test code = Chloride Lvl) 102 95-109 [place] 412362-07-18 09:04:00 Test Item Value Reference Range Interpretation Comments CO2 (test code = CO2) 25 24-32 [place] 412362-07-18 09:04:00 Test Item Value Reference Range Interpretation Comments Calcium Lvl (test code = Calcium Lvl) 9.1 8.5-10.5 [place] 412362-07-18 09:04:00 Test Item Value Reference Range Interpretation Comments Total Protein (test code = Total 6.2 6.4-8.4 Protein) [place] 412362-07-18 09:04:00 Test Item Value Reference Range Interpretation Comments Albumin Lvl (test code = Albumin Lvl) 2.8 3.5-5.0 [place] 412362-07-18 09:04:00 Test Item Value Reference Range Interpretation Comments ALT (test code = ALT) 78 See_Comment [Auto mated message] The system which ge nerated this result transmit swathi reference range : <=65. The reference range was not used to interpr et this result as deny l/abnormal. [place] 412362-07-18 09:04:00 Test Item Value Reference Range Interpretation Comments AST (test code = AST) 117 See_Comment [Auto mated message] The system which ge nerated this result transmit swathi reference range : <=37. The reference range was not used to interpr et this result as deny l/abnormal. [place] 412362-07-18 09:04:00 Test Item Value Reference Range Interpretation Comments Alk Phos (test code = Alk Phos) 251 39-136 [place] 412362-07-18 09:04:00 Test Item Value Reference Range Interpretation Comments Bili Total (test code = Bili Total) 0.9 0.2-1.3 [place] 412362-07-18 09:04:00 Test Item Value Reference Range Interpretation Comments AGAP (test code = AGAP) 11.0 10.0-20.0 [place] 412362-07-18 09:04:00 Test Item Value Reference Range Interpretation Comments B/C Ratio (test code = B/C Ratio) 6 1 6-25 [place] 412362-07-18 09:04:00 Test Item Value Reference Range Interpretation Comments Globulin (test code = Globulin) 3.4 2.7-4.2 [place] 412362-07-18 09:04:00 Test Item Value Reference Range Interpretation Comments A/G Ratio (test code = A/G Ratio) 0.8 1 0.7-1.6 [place] 412362-07-18 09:04:00 Test Item Value Reference Range Interpretation Comments eGFR (test code = eGFR) 8 [place] 264282-07-18 09:04:00 Test Item Value Reference Range Interpretation Comments D-Dimer (test code = D-Dimer) 3.03 [place] 264282-07-18 09:04:00 Test Item Value Reference Range Interpretation Comments WBC (test code = WBC) 3.6 3.7-10.4 [place] 264282-07-18 09:04:00 Test Item Value Reference Range Interpretation Comments RBC (test code = RBC) 2.07 4.70-6.10 [place] [address]-07-18 09:04:00 Test Item Value Reference Range Interpretation Comments Hgb (test code = Hgb) 7.5 14.0-18.0 [place] [address]-07-18 09:04:00 Test Item Value Reference Range Interpretation Comments Hct (test code = Hct) 22.0 42.0-54.0 [place] 264282-07-18 09:04:00 Test Item Value Reference Range Interpretation Comments MCV (test code = MCV) 106.3 80.0-94.0 [place] 264282-07-18 09:04:00 Test Item Value Reference Range Interpretation Comments MCH (test code = MCH) 36.1 pg 27.0-31.0 [place] 264282-07-18 09:04:00 Test Item Value Reference Range Interpretation Comments MCHC (test code = MCHC) 33.9 32.0-36.0 [place] 264282-07-18 09:04:00 Test Item Value Reference Range Interpretation Comments RDW (test code = RDW) 23.9 11.5-14.5 [place] 264282-07-18 09:04:00 Test Item Value Reference Range Interpretation Comments Platelet (test code = Platelet) 133 133-450 [place] 264282-07-18 09:04:00 Test Item Value Reference Range Interpretation Comments MPV (test code = MPV) 8.1 7.4-10.4 [place] [address]-07-18 09:04:00 Test Item Value Reference Range Interpretation Comments Segs (test code = Segs) 60.8 45.0-75.0 [place] 264282-07-18 09:04:00 Test Item Value Reference Range Interpretation Comments Lymphocytes (test code = Lymphocytes) 22.3 20.0-40.0 [place] [address]-07-18 09:04:00 Test Item Value Reference Range Interpretation Comments Monocytes (test code = Monocytes) 13.9 2.0-12.0 [place] [address]-07-18 09:04:00 Test Item Value Reference Range Interpretation Comments Eosinophils (test code = 2.6 See_Comment [A utomated message] The Eosinophils) system which ge nerated this result tra nsmitted reference range : <=4.0. The reference r samantha was not used to int erpret this result as normal/abnormal . [facility]xdtrYPQZRPJLAU0400-92-29 09:04:00 Test Item Value Reference Range Interpretation Comments Basophils (test code = 0.4 See_Comment [Aut omated message] The Basophils) system which ge nerated this result tra nsmitted reference range : <=1.0. The reference r samantha was not used to int erpret this result as normal/abnormal . [facility]evilleJapzpsyABIXAMDJMM8582-92-76 09:04:00 Test Item Value Reference Range Interpretation Comments Neutrophils # (test code = Neutrophils 2.2 1.5-8.1 #) [facility]YLLRBTRRJ9627[facility]-88 09:04:00 Test Item Value Reference Range Interpretation Comments Lymphocytes # (test code = Lymphocytes 0.8 1.0-5.5 #) [facility]ChjihbcLPDPRWYQSL8668-01-97 09:04:00 Test Item Value Reference Range Interpretation Comments Monocytes # (test code 0.5 See_Comment [Aut omated message] The = Monocytes #) system which generated this result tra nsmitted reference range : <=0.8. The reference r samantha was not used to int erpret this result as normal/abnormal . [facility]evilleQfgfsdeBZGEBRLGZC8138-77-55 09:04:00 Test Item Value Reference Range Interpretation Comments Eosinophils # (test code 0.1 See_Comment [A utomated message] The = Eosinophils #) system whic h generated this result tra nsmitted reference range : <=0.5. The reference r samantha was not used to int erpret this result as normal/abnormal . [facility]evilleExxpcpkZIHIXENFYQ9741-75-16 09:04:00 Test Item Value Reference Range Interpretation Comments Macrocyte (test code = 1+ *ABN*(12/15/21 Macrocyte) 4:04 AM) [facility]evilleWqdcprqLTSHFWVZQW1335-52-90 09:04:00 Test Item Value Reference Range Interpretation Comments C-REACTIVE PROTEIN (test code = 25.1 C-REACTIVE PROTEIN) [facility]evilleIaboktlMUJEAYCCPJ0730-45-09 09:04:00 Test Item Value Reference Range Interpretation Comments Vanco Lvl (test code = Vanco Lvl) 15.2 [facility]evilleCHE[facility] [id number] 09:04:00 Test Item Value Reference Range Interpretation Comments Glucose Lvl (test code = Glucose Lvl) 59 70-99 [place] 412362-07-18 09:04:00 Test Item Value Reference Range Interpretation Comments BUN (test code = BUN) 41 7-22 [place] 412362-07-18 09:04:00 Test Item Value Reference Range Interpretation Comments Creatinine Lvl (test code = Creatinine 7.00 0.50-1.40 Lvl) [place] 412362-07-18 09:04:00 Test Item Value Reference Range Interpretation Comments Sodium Lvl (test code = Sodium Lvl) 134 135-145 [place] 412362-07-18 09:04:00 Test Item Value Reference Range Interpretation Comments Potassium Lvl (test code = Potassium 4.0 3.5-5.1 Lvl) [place] 412362-07-18 09:04:00 Test Item Value Reference Range Interpretation Comments Chloride Lvl (test code = Chloride Lvl) 102 95-109 [place] 412362-07-18 09:04:00 Test Item Value Reference Range Interpretation Comments CO2 (test code = CO2) 25 24-32 [place] 412362-07-18 09:04:00 Test Item Value Reference Range Interpretation Comments Calcium Lvl (test code = Calcium Lvl) 9.1 8.5-10.5 [place] 412362-07-18 09:04:00 Test Item Value Reference Range Interpretation Comments Total Protein (test code = Total 6.2 6.4-8.4 Protein) [place] 412362-07-18 09:04:00 Test Item Value Reference Range Interpretation Comments Albumin Lvl (test code = Albumin Lvl) 2.8 3.5-5.0 [place] [address]-07-18 09:04:00 Test Item Value Reference Range Interpretation Comments ALT (test code = ALT) 78 See_Comment [Auto mated message] The system which ge nerated this result transmit swathi reference range : <=65. The reference range was not used to interpr et this result as deny l/abnormal. [place] 412362-07-18 09:04:00 Test Item Value Reference Range Interpretation Comments AST (test code = AST) 117 See_Comment [Auto mated message] The system which ge nerated this result transmit swathi reference range : <=37. The reference range was not used to interpr et this result as deny l/abnormal. [facility] [id number] 09:04:00 Test Item Value Reference Range Interpretation Comments Alk Phos (test code = Alk Phos) 251 39-136 [facility] [address]FWMPU0296-38-37 09:04:00 Test Item Value Reference Range Interpretation Comments Bili Total (test code = Bili Total) 0.9 0.2-1.3 [place] 412362-07-18 09:04:00 Test Item Value Reference Range Interpretation Comments AGAP (test code = AGAP) 11.0 10.0-20.0 [facility]land[facility] [id number] 09:04:00 Test Item Value Reference Range Interpretation Comments B/C Ratio (test code = B/C Ratio) 6 1 6-25 [place] 412362-07-18 09:04:00 Test Item Value Reference Range Interpretation Comments Globulin (test code = Globulin) 3.4 2.7-4.2 [facility] [id number] 09:04:00 Test Item Value Reference Range Interpretation Comments A/G Ratio (test code = A/G Ratio) 0.8 1 0.7-1.6 [place] 412362-07-18 09:04:00 Test Item Value Reference Range Interpretation Comments eGFR (test code = eGFR) 8 [place] 264282-07-18 09:04:00 Test Item Value Reference Range Interpretation Comments D-Dimer (test code = D-Dimer) 3.03 [place] 264282-07-18 09:04:00 Test Item Value Reference Range Interpretation Comments WBC (test code = WBC) 3.6 3.7-10.4 [place] 264282-07-18 09:04:00 Test Item Value Reference Range Interpretation Comments RBC (test code = RBC) 2.07 4.70-6.10 [place] 264282-07-18 09:04:00 Test Item Value Reference Range Interpretation Comments Hgb (test code = Hgb) 7.5 14.0-18.0 [place] [address]-07-18 09:04:00 Test Item Value Reference Range Interpretation Comments Hct (test code = Hct) 22.0 42.0-54.0 [place] 264282-07-18 09:04:00 Test Item Value Reference Range Interpretation Comments MCV (test code = MCV) 106.3 80.0-94.0 [place] 264282-07-18 09:04:00 Test Item Value Reference Range Interpretation Comments MCH (test code = MCH) 36.1 pg 27.0-31.0 [facility] HospitalZscvutcBGWRIDFWVQ2892-09-61 09:04:00 Test Item Value Reference Range Interpretation Comments MCHC (test code = MCHC) 33.9 32.0-36.0 [place] 264282-07-18 09:04:00 Test Item Value Reference Range Interpretation Comments RDW (test code = RDW) 23.9 11.5-14.5 [place] 264282-07-18 09:04:00 Test Item Value Reference Range Interpretation Comments Platelet (test code = Platelet) 133 133-450 [facility] HospitalJlpcyvjZVTGVZTUQP5517-63-59 09:04:00 Test Item Value Reference Range Interpretation Comments MPV (test code = MPV) 8.1 7.4-10.4 [place] 264282-07-18 09:04:00 Test Item Value Reference Range Interpretation Comments Segs (test code = Segs) 60.8 45.0-75.0 [facility] HospitalTtdqhbqTUNEGSDGRN4046-07-23 09:04:00 Test Item Value Reference Range Interpretation Comments Lymphocytes (test code = Lymphocytes) 22.3 20.0-40.0 [place] 264282-07-18 09:04:00 Test Item Value Reference Range Interpretation Comments Monocytes (test code = Monocytes) 13.9 2.0-12.0 [place] [address]-07-18 09:04:00 Test Item Value Reference Range Interpretation Comments Eosinophils (test code = 2.6 See_Comment [A utomated message] The Eosinophils) system which ge nerated this result tra nsmitted reference range : <=4.0. The reference r samantha was not used to int erpret this result as normal/abnormal . [place] 264282-07-18 09:04:00 Test Item Value Reference Range Interpretation Comments Basophils (test code = 0.4 See_Comment [Aut omated message] The Basophils) system which ge nerated this result tra nsmitted reference range : <=1.0. The reference r samantha was not used to int erpret this result as normal/abnormal . [facility] HospitalInxvpnxXFOQTQFPKC5855-39-72 09:04:00 Test Item Value Reference Range Interpretation Comments Neutrophils # (test code = Neutrophils 2.2 1.5-8.1 #) [facility] HospitalQseqetoXBTYYTKVBO6025-39-04 09:04:00 Test Item Value Reference Range Interpretation Comments Lymphocytes # (test code = Lymphocytes 0.8 1.0-5.5 #) [facility] HospitalTcoetqiKYRZDHTIAJ1416-18-68 09:04:00 Test Item Value Reference Range Interpretation Comments Monocytes # (test code 0.5 See_Comment [Aut omated message] The = Monocytes #) system which generated this result tra nsmitted reference range : <=0.8. The reference r samantha was not used to int erpret this result as normal/abnormal . [facility] HospitalHutximvIUIDMWJGWM1312-38-71 09:04:00 Test Item Value Reference Range Interpretation Comments Eosinophils # (test code 0.1 See_Comment [A utomated message] The = Eosinophils #) system whic h generated this result tra nsmitted reference range : <=0.5. The reference r samantha was not used to int erpret this result as normal/abnormal . [facility] HospitalHburnkdRVCJIEGPJW6859-01-82 09:04:00 Test Item Value Reference Range Interpretation Comments Macrocyte (test code = 1+ *ABN*(12/15/21 Macrocyte) 4:04 AM) [facility]evilleVbfvnkcOOWABEKYQP1575-34-07 09:04:00 Test Item Value Reference Range Interpretation Comments C-REACTIVE PROTEIN (test code = 25.1 C-REACTIVE PROTEIN) [facility]evilleQwhqeqtCWPXDSASVM5510-85-85 09:04:00 Test Item Value Reference Range Interpretation Comments Vanco Lvl (test code = Vanco Lvl) 15.2 [facility] [id number] 09:04:00 Test Item Value Reference Range Interpretation Comments Glucose Lvl (test code = Glucose Lvl) 59 70-99 [facility]landZ[facility] [id number] 09:04:00 Test Item Value Reference Range Interpretation Comments BUN (test code = BUN) 41 7-22 [facility] [id number] 09:04:00 Test Item Value Reference Range Interpretation Comments Creatinine Lvl (test code = Creatinine 7.00 0.50-1.40 Lvl) [place] [address]-07-18 09:04:00 Test Item Value Reference Range Interpretation Comments Sodium Lvl (test code = Sodium Lvl) 134 135-145 [place] 412362-07-18 09:04:00 Test Item Value Reference Range Interpretation Comments Potassium Lvl (test code = Potassium 4.0 3.5-5.1 Lvl) [place] 412362-07-18 09:04:00 Test Item Value Reference Range Interpretation Comments Chloride Lvl (test code = Chloride Lvl) 102 95-109 [place] 412362-07-18 09:04:00 Test Item Value Reference Range Interpretation Comments CO2 (test code = CO2) 25 24-32 [place] 412362-07-18 09:04:00 Test Item Value Reference Range Interpretation Comments Calcium Lvl (test code = Calcium Lvl) 9.1 8.5-10.5 [place] 412362-07-18 09:04:00 Test Item Value Reference Range Interpretation Comments Total Protein (test code = Total 6.2 6.4-8.4 Protein) [place] 412362-07-18 09:04:00 Test Item Value Reference Range Interpretation Comments Albumin Lvl (test code = Albumin Lvl) 2.8 3.5-5.0 [place] 412362-07-18 09:04:00 Test Item Value Reference Range Interpretation Comments ALT (test code = ALT) 78 See_Comment [Auto mated message] The system which ge nerated this result transmit swathi reference range : <=65. The reference range was not used to interpr et this result as deny l/abnormal. [place] 412362-07-18 09:04:00 Test Item Value Reference Range Interpretation Comments AST (test code = AST) 117 See_Comment [Auto mated message] The system which ge nerated this result transmit swathi reference range : <=37. The reference range was not used to interpr et this result as deny l/abnormal. [place] 412362-07-18 09:04:00 Test Item Value Reference Range Interpretation Comments Alk Phos (test code = Alk Phos) 251 39-136 [place] 412362-07-18 09:04:00 Test Item Value Reference Range Interpretation Comments Bili Total (test code = Bili Total) 0.9 0.2-1.3 [place] 412362-07-18 09:04:00 Test Item Value Reference Range Interpretation Comments AGAP (test code = AGAP) 11.0 10.0-20.0 [place] 412362-07-18 09:04:00 Test Item Value Reference Range Interpretation Comments B/C Ratio (test code = B/C Ratio) 6 1 6-25 [place] 412362-07-18 09:04:00 Test Item Value Reference Range Interpretation Comments Globulin (test code = Globulin) 3.4 2.7-4.2 [place] 412362-07-18 09:04:00 Test Item Value Reference Range Interpretation Comments A/G Ratio (test code = A/G Ratio) 0.8 1 0.7-1.6 [place] 412362-07-18 09:04:00 Test Item Value Reference Range Interpretation Comments eGFR (test code = eGFR) 8 [facility] HospitalLlssmwkBFTBCORIMP9604-56-15 09:04:00 Test Item Value Reference Range Interpretation Comments D-Dimer (test code = D-Dimer) 3.03 [place] 264282-07-18 09:04:00 Test Item Value Reference Range Interpretation Comments WBC (test code = WBC) 3.6 3.7-10.4 [place] 264282-07-18 09:04:00 Test Item Value Reference Range Interpretation Comments RBC (test code = RBC) 2.07 4.70-6.10 [place] 264282-07-18 09:04:00 Test Item Value Reference Range Interpretation Comments Hgb (test code = Hgb) 7.5 14.0-18.0 [place] [address]-07-18 09:04:00 Test Item Value Reference Range Interpretation Comments Hct (test code = Hct) 22.0 42.0-54.0 [place] [address]-07-18 09:04:00 Test Item Value Reference Range Interpretation Comments MCV (test code = MCV) 106.3 80.0-94.0 [place] [address]-07-18 09:04:00 Test Item Value Reference Range Interpretation Comments MCH (test code = MCH) 36.1 pg 27.0-31.0 [facility] HospitalWqcoypqTXEYWKCHDJ9367-64-46 09:04:00 Test Item Value Reference Range Interpretation Comments MCHC (test code = MCHC) 33.9 32.0-36.0 [facility] HospitalBfcxsfeEESVPOYMFA4146-02-11 09:04:00 Test Item Value Reference Range Interpretation Comments RDW (test code = RDW) 23.9 11.5-14.5 [facility] HospitalRjxwdrkUHCCZFKQHO9015-33-60 09:04:00 Test Item Value Reference Range Interpretation Comments Platelet (test code = Platelet) 133 133-450 [facility] HospitalWmdllcmVONRLNAEFQ4940-84-15 09:04:00 Test Item Value Reference Range Interpretation Comments MPV (test code = MPV) 8.1 7.4-10.4 [facility] HospitalLmcewiqGBXBJFXKIP3032-30-79 09:04:00 Test Item Value Reference Range Interpretation Comments Segs (test code = Segs) 60.8 45.0-75.0 [facility] HospitalTrypsesHZURQZJVDY7002-96-75 09:04:00 Test Item Value Reference Range Interpretation Comments Lymphocytes (test code = Lymphocytes) 22.3 20.0-40.0 [facility] HospitalVvmaqqyXQFUZGERPJ5046-80-03 09:04:00 Test Item Value Reference Range Interpretation Comments Monocytes (test code = Monocytes) 13.9 2.0-12.0 [facility] HospitalQtusfdlDHZCENCLKO4512-28-69 09:04:00 Test Item Value Reference Range Interpretation Comments Eosinophils (test code = 2.6 See_Comment [A utomated message] The Eosinophils) system which ge nerated this result tra nsmitted reference range : <=4.0. The reference r samantha was not used to int erpret this result as normal/abnormal . [facility] HospitalRcvqhdaPPQKUWTQQB8361-95-57 09:04:00 Test Item Value Reference Range Interpretation Comments Basophils (test code = 0.4 See_Comment [Aut omated message] The Basophils) system which ge nerated this result tra nsmitted reference range : <=1.0. The reference r samantha was not used to int erpret this result as normal/abnormal . [facility] HospitalKrxhqpoONIRKWNECW9577-58-13 09:04:00 Test Item Value Reference Range Interpretation Comments Neutrophils # (test code = Neutrophils 2.2 1.5-8.1 #) [facility]evilleJjytzhnFYMJLLWMGG9527-08-96 09:04:00 Test Item Value Reference Range Interpretation Comments Lymphocytes # (test code = Lymphocytes 0.8 1.0-5.5 #) [facility] HospitalKofkiwvXEECECKUZN0369-02-51 09:04:00 Test Item Value Reference Range Interpretation Comments Monocytes # (test code 0.5 See_Comment [Aut omated message] The = Monocytes #) system which generated this result tra nsmitted reference range : <=0.8. The reference r samantha was not used to int erpret this result as normal/abnormal . [facility] HospitalTkwnefuVZGWAIGPRC5390-96-50 09:04:00 Test Item Value Reference Range Interpretation Comments Eosinophils # (test code 0.1 See_Comment [A utomated message] The = Eosinophils #) system whic h generated this result tra nsmitted reference range : <=0.5. The reference r samantha was not used to int erpret this result as normal/abnormal . [facility] HospitalJbhhxbxHCLADSMURW2712-95-35 09:04:00 Test Item Value Reference Range Interpretation Comments Macrocyte (test code = 1+ *ABN*(12/15/21 Macrocyte) 4:04 AM) [facility]evilleVxmtshgOUMMKGYUPO1608-15-00 09:04:00 Test Item Value Reference Range Interpretation Comments C-REACTIVE PROTEIN (test code = 25.1 C-REACTIVE PROTEIN) [facility]evilleVjkadmlQRTNVVPJIV6178-82-80 09:04:00 Test Item Value Reference Range Interpretation Comments Vanco Lvl (test code = Vanco Lvl) 15.2 [facility] IJWXR8728-21-24 09:04:00 Test Item Value Reference Range Interpretation Comments Glucose Lvl (test code = Glucose Lvl) 59 70-99 [facility] HRUZA1253-10-13 09:04:00 Test Item Value Reference Range Interpretation Comments BUN (test code = BUN) 41 7-22 [facility]2022-07-18 09:04:00 Test Item Value Reference Range Interpretation Comments Creatinine Lvl (test code = Creatinine 7.00 0.50-1.40 Lvl) [facility]2022-07-18 09:04:00 Test Item Value Reference Range Interpretation Comments Sodium Lvl (test code = Sodium Lvl) 134 135-145 [place] 412362-07-18 09:04:00 Test Item Value Reference Range Interpretation Comments Potassium Lvl (test code = Potassium 4.0 3.5-5.1 Lvl) [place] 412362-07-18 09:04:00 Test Item Value Reference Range Interpretation Comments Chloride Lvl (test code = Chloride Lvl) 102 95-109 [facility] [address]AYQZU6000-52-97 09:04:00 Test Item Value Reference Range Interpretation Comments CO2 (test code = CO2) 25 24-32 [place] 412362-07-18 09:04:00 Test Item Value Reference Range Interpretation Comments Calcium Lvl (test code = Calcium Lvl) 9.1 8.5-10.5 [place] [address]-07-18 09:04:00 Test Item Value Reference Range Interpretation Comments Total Protein (test code = Total 6.2 6.4-8.4 Protein) [place] 412362-07-18 09:04:00 Test Item Value Reference Range Interpretation Comments Albumin Lvl (test code = Albumin Lvl) 2.8 3.5-5.0 [place] 412362-07-18 09:04:00 Test Item Value Reference Range Interpretation Comments ALT (test code = ALT) 78 See_Comment [Auto mated message] The system which ge nerated this result transmit swathi reference range : <=65. The reference range was not used to interpr et this result as deny l/abnormal. [place] [address]-07-18 09:04:00 Test Item Value Reference Range Interpretation Comments AST (test code = AST) 117 See_Comment [Auto mated message] The system which ge nerated this result transmit swathi reference range : <=37. The reference range was not used to interpr et this result as deny l/abnormal. [facility] [id number] 09:04:00 Test Item Value Reference Range Interpretation Comments Alk Phos (test code = Alk Phos) 251 39-136 [place] [address]-07-18 09:04:00 Test Item Value Reference Range Interpretation Comments Bili Total (test code = Bili Total) 0.9 0.2-1.3 [place] [address]-07-18 09:04:00 Test Item Value Reference Range Interpretation Comments AGAP (test code = AGAP) 11.0 10.0-20.0 [place] 412362-07-18 09:04:00 Test Item Value Reference Range Interpretation Comments B/C Ratio (test code = B/C Ratio) 6 1 6-25 [place] 412362-07-18 09:04:00 Test Item Value Reference Range Interpretation Comments Globulin (test code = Globulin) 3.4 2.7-4.2 [place] 412362-07-18 09:04:00 Test Item Value Reference Range Interpretation Comments A/G Ratio (test code = A/G Ratio) 0.8 1 0.7-1.6 [place] 412362-07-18 09:04:00 Test Item Value Reference Range Interpretation Comments eGFR (test code = eGFR) 8 [facility] HospitalVsxjcoyGROIBYOWCE8387-11-04 09:04:00 Test Item Value Reference Range Interpretation Comments D-Dimer (test code = D-Dimer) 3.03 [place] 264282-07-18 09:04:00 Test Item Value Reference Range Interpretation Comments WBC (test code = WBC) 3.6 3.7-10.4 [place] 264282-07-18 09:04:00 Test Item Value Reference Range Interpretation Comments RBC (test code = RBC) 2.07 4.70-6.10 [place] 264282-07-18 09:04:00 Test Item Value Reference Range Interpretation Comments Hgb (test code = Hgb) 7.5 14.0-18.0 [place] 264282-07-18 09:04:00 Test Item Value Reference Range Interpretation Comments Hct (test code = Hct) 22.0 42.0-54.0 [place] 264282-07-18 09:04:00 Test Item Value Reference Range Interpretation Comments MCV (test code = MCV) 106.3 80.0-94.0 [place] [address]-07-18 09:04:00 Test Item Value Reference Range Interpretation Comments MCH (test code = MCH) 36.1 pg 27.0-31.0 [place] 264282-07-18 09:04:00 Test Item Value Reference Range Interpretation Comments MCHC (test code = MCHC) 33.9 32.0-36.0 [facility] HospitalHfpcdagSKKBQSNXSM3906-40-92 09:04:00 Test Item Value Reference Range Interpretation Comments RDW (test code = RDW) 23.9 11.5-14.5 [place] 264282-07-18 09:04:00 Test Item Value Reference Range Interpretation Comments Platelet (test code = Platelet) 133 133-450 [facility] HospitalXyvprizBNJIMODNNN2269-68-17 09:04:00 Test Item Value Reference Range Interpretation Comments MPV (test code = MPV) 8.1 7.4-10.4 [place] 264282-07-18 09:04:00 Test Item Value Reference Range Interpretation Comments Segs (test code = Segs) 60.8 45.0-75.0 [place] 264282-07-18 09:04:00 Test Item Value Reference Range Interpretation Comments Lymphocytes (test code = Lymphocytes) 22.3 20.0-40.0 [place] 264282-07-18 09:04:00 Test Item Value Reference Range Interpretation Comments Monocytes (test code = Monocytes) 13.9 2.0-12.0 [facility] HospitalOfogmtlKXNUMNGLFM5285-45-61 09:04:00 Test Item Value Reference Range Interpretation Comments Eosinophils (test code = 2.6 See_Comment [A utomated message] The Eosinophils) system which ge nerated this result tra nsmitted reference range : <=4.0. The reference r samantha was not used to int erpret this result as normal/abnormal . [facility] HospitalKphrggqJUNLUBSXHM1779-48-29 09:04:00 Test Item Value Reference Range Interpretation Comments Basophils (test code = 0.4 See_Comment [Aut omated message] The Basophils) system which ge nerated this result tra nsmitted reference range : <=1.0. The reference r samantha was not used to int erpret this result as normal/abnormal . [facility] HospitalKfmrbbbCSVVUXJFMI1147-51-23 09:04:00 Test Item Value Reference Range Interpretation Comments Neutrophils # (test code = Neutrophils 2.2 1.5-8.1 #) [facility] HospitalAkfychyTQXMUIEWTC8357-61-96 09:04:00 Test Item Value Reference Range Interpretation Comments Lymphocytes # (test code = Lymphocytes 0.8 1.0-5.5 #) [place] 264282-07-18 09:04:00 Test Item Value Reference Range Interpretation Comments Monocytes # (test code 0.5 See_Comment [Aut omated message] The = Monocytes #) system which generated this result tra nsmitted reference range : <=0.8. The reference r samantha was not used to int erpret this result as normal/abnormal . [facility] HospitalVvucprcQIRYANQBNQ2464-86-07 09:04:00 Test Item Value Reference Range Interpretation Comments Eosinophils # (test code 0.1 See_Comment [A utomated message] The = Eosinophils #) system whic h generated this result tra nsmitted reference range : <=0.5. The reference r samantha was not used to int erpret this result as normal/abnormal . [facility]30[facility] 09:04:00 Test Item Value Reference Range Interpretation Comments Macrocyte (test code = 1+ *ABN*(12/15/21 Macrocyte) 4:04 AM) [facility]UwssebkHNMUEQIVOL0213-92-96 09:04:00 Test Item Value Reference Range Interpretation Comments C-REACTIVE PROTEIN (test code = 25.1 C-REACTIVE PROTEIN) [facility]evilleVkdoaxdKMODFMERXB1235-04-69 09:04:00 Test Item Value Reference Range Interpretation Comments Vanco Lvl (test code = Vanco Lvl) 15.2 [facility] [employer] [id number] 09:04:00 Test Item Value Reference Range Interpretation Comments Glucose Lvl (test code = Glucose Lvl) 59 70-99 [facility] [id number] 09:04:00 Test Item Value Reference Range Interpretation Comments BUN (test code = BUN) 41 7-22 [facility] [id number] 09:04:00 Test Item Value Reference Range Interpretation Comments Creatinine Lvl (test code = Creatinine 7.00 0.50-1.40 Lvl) [facility] [id number] 09:04:00 Test Item Value Reference Range Interpretation Comments Sodium Lvl (test code = Sodium Lvl) 134 135-145 [facility] [id number] 09:04:00 Test Item Value Reference Range Interpretation Comments Potassium Lvl (test code = Potassium 4.0 3.5-5.1 Lvl) [facility] [id number] 09:04:00 Test Item Value Reference Range Interpretation Comments Chloride Lvl (test code = Chloride Lvl) 102 95-109 [facility] [place] [id number] 09:04:00 Test Item Value Reference Range Interpretation Comments CO2 (test code = CO2) 25 24-32 [place] 412362-07-18 09:04:00 Test Item Value Reference Range Interpretation Comments Calcium Lvl (test code = Calcium Lvl) 9.1 8.5-10.5 [place] [address]-07-18 09:04:00 Test Item Value Reference Range Interpretation Comments Total Protein (test code = Total 6.2 6.4-8.4 Protein) [place] 412362-07-18 09:04:00 Test Item Value Reference Range Interpretation Comments Albumin Lvl (test code = Albumin Lvl) 2.8 3.5-5.0 [facility] [id number] 09:04:00 Test Item Value Reference Range Interpretation Comments ALT (test code = ALT) 78 See_Comment [Auto mated message] The system which ge nerated this result transmit swathi reference range : <=65. The reference range was not used to interpr et this result as deny l/abnormal. [place] [address]-07-18 09:04:00 Test Item Value Reference Range Interpretation Comments AST (test code = AST) 117 See_Comment [Auto mated message] The system which ge nerated this result transmit swathi reference range : <=37. The reference range was not used to interpr et this result as deny l/abnormal. [facility] [id number] 09:04:00 Test Item Value Reference Range Interpretation Comments Alk Phos (test code = Alk Phos) 251 39-136 [facility] [id number] 09:04:00 Test Item Value Reference Range Interpretation Comments Bili Total (test code = Bili Total) 0.9 0.2-1.3 [place] [address]-07-18 09:04:00 Test Item Value Reference Range Interpretation Comments AGAP (test code = AGAP) 11.0 10.0-20.0 [facility] [id number] 09:04:00 Test Item Value Reference Range Interpretation Comments B/C Ratio (test code = B/C Ratio) 6 1 6-25 [place] 412362-07-18 09:04:00 Test Item Value Reference Range Interpretation Comments Globulin (test code = Globulin) 3.4 2.7-4.2 [place] 412362-07-18 09:04:00 Test Item Value Reference Range Interpretation Comments A/G Ratio (test code = A/G Ratio) 0.8 1 0.7-1.6 [place] 412362-07-18 09:04:00 Test Item Value Reference Range Interpretation Comments eGFR (test code = eGFR) 8 [place] 264282-07-18 09:04:00 Test Item Value Reference Range Interpretation Comments D-Dimer (test code = D-Dimer) 3.03 [place] 264282-07-18 09:04:00 Test Item Value Reference Range Interpretation Comments WBC (test code = WBC) 3.6 3.7-10.4 [place] 264282-07-18 09:04:00 Test Item Value Reference Range Interpretation Comments RBC (test code = RBC) 2.07 4.70-6.10 [place] 264282-07-18 09:04:00 Test Item Value Reference Range Interpretation Comments Hgb (test code = Hgb) 7.5 14.0-18.0 [place] 264282-07-18 09:04:00 Test Item Value Reference Range Interpretation Comments Hct (test code = Hct) 22.0 42.0-54.0 [place] 264282-07-18 09:04:00 Test Item Value Reference Range Interpretation Comments MCV (test code = MCV) 106.3 80.0-94.0 [facility] HospitalVfvbcgaAUBMRFCCRI0030-60-32 09:04:00 Test Item Value Reference Range Interpretation Comments MCH (test code = MCH) 36.1 pg 27.0-31.0 [place] 264282-07-18 09:04:00 Test Item Value Reference Range Interpretation Comments MCHC (test code = MCHC) 33.9 32.0-36.0 [place] 264282-07-18 09:04:00 Test Item Value Reference Range Interpretation Comments RDW (test code = RDW) 23.9 11.5-14.5 [place] 264282-07-18 09:04:00 Test Item Value Reference Range Interpretation Comments Platelet (test code = Platelet) 133 133-450 [place] 264282-07-18 09:04:00 Test Item Value Reference Range Interpretation Comments MPV (test code = MPV) 8.1 7.4-10.4 [place] 264282-07-18 09:04:00 Test Item Value Reference Range Interpretation Comments Segs (test code = Segs) 60.8 45.0-75.0 [place] 264282-07-18 09:04:00 Test Item Value Reference Range Interpretation Comments Lymphocytes (test code = Lymphocytes) 22.3 20.0-40.0 [place] [address]-07-18 09:04:00 Test Item Value Reference Range Interpretation Comments Monocytes (test code = Monocytes) 13.9 2.0-12.0 [place] [address]-07-18 09:04:00 Test Item Value Reference Range Interpretation Comments Eosinophils (test code = 2.6 See_Comment [A utomated message] The Eosinophils) system which ge nerated this result tra nsmitted reference range : <=4.0. The reference r samantha was not used to int erpret this result as normal/abnormal . [place] 264282-07-18 09:04:00 Test Item Value Reference Range Interpretation Comments Basophils (test code = 0.4 See_Comment [Aut omated message] The Basophils) system which ge nerated this result tra nsmitted reference range : <=1.0. The reference r samantha was not used to int erpret this result as normal/abnormal . [place] 264282-07-18 09:04:00 Test Item Value Reference Range Interpretation Comments Neutrophils # (test code = Neutrophils 2.2 1.5-8.1 #) [place] 264282-07-18 09:04:00 Test Item Value Reference Range Interpretation Comments Lymphocytes # (test code = Lymphocytes 0.8 1.0-5.5 #) [place] 264282-07-18 09:04:00 Test Item Value Reference Range Interpretation Comments Monocytes # (test code 0.5 See_Comment [Aut omated message] The = Monocytes #) system which generated this result tra nsmitted reference range : <=0.8. The reference r samantha was not used to int erpret this result as normal/abnormal . [facility]evilleZzstkrpIFIIFSXVJN6927-17-95 09:04:00 Test Item Value Reference Range Interpretation Comments Eosinophils # (test code 0.1 See_Comment [A utomated message] The = Eosinophils #) system whic h generated this result tra nsmitted reference range : <=0.5. The reference r samantha was not used to int erpret this result as normal/abnormal . [facility]PsxaclsAXPWIVBTKS6090-30-31 09:04:00 Test Item Value Reference Range Interpretation Comments Macrocyte (test code = 1+ *ABN*(12/15/21 Macrocyte) 4:04 AM) [facility]evilleIcwewnhNYXASPLHCC6178-51-58 09:04:00 Test Item Value Reference Range Interpretation Comments C-REACTIVE PROTEIN (test code = 25.1 C-REACTIVE PROTEIN) [facility] BeevilleGkyrvxyGFKBAGOFXV5381-35-12 09:04:00 Test Item Value Reference Range Interpretation Comments Vanco Lvl (test code = Vanco Lvl) 15.2 [facility] [id number] 09:04:00 Test Item Value Reference Range Interpretation Comments Glucose Lvl (test code = Glucose Lvl) 59 70-99 [facility] [id number] 09:04:00 Test Item Value Reference Range Interpretation Comments BUN (test code = BUN) 41 7-22 [facility] [id number] 09:04:00 Test Item Value Reference Range Interpretation Comments Creatinine Lvl (test code = Creatinine 7.00 0.50-1.40 Lvl) [facility] [id number] 09:04:00 Test Item Value Reference Range Interpretation Comments Sodium Lvl (test code = Sodium Lvl) 134 135-145 [facility] [id number] 09:04:00 Test Item Value Reference Range Interpretation Comments Potassium Lvl (test code = Potassium 4.0 3.5-5.1 Lvl) [facility] [id number] 09:04:00 Test Item Value Reference Range Interpretation Comments Chloride Lvl (test code = Chloride Lvl) 102 95-109 [facility] [id number] 09:04:00 Test Item Value Reference Range Interpretation Comments CO2 (test code = CO2) 25 24-32 [facility] [id number] 09:04:00 Test Item Value Reference Range Interpretation Comments Calcium Lvl (test code = Calcium Lvl) 9.1 8.5-10.5 [place] 412362-07-18 09:04:00 Test Item Value Reference Range Interpretation Comments Total Protein (test code = Total 6.2 6.4-8.4 Protein) [place] [address]-07-18 09:04:00 Test Item Value Reference Range Interpretation Comments Albumin Lvl (test code = Albumin Lvl) 2.8 3.5-5.0 [facility] [id number] 09:04:00 Test Item Value Reference Range Interpretation Comments ALT (test code = ALT) 78 See_Comment [Auto mated message] The system which ge nerated this result transmit swathi reference range : <=65. The reference range was not used to interpr et this result as deny l/abnormal. [facility] [id number] 09:04:00 Test Item Value Reference Range Interpretation Comments AST (test code = AST) 117 See_Comment [Auto mated message] The system which ge nerated this result transmit swathi reference range : <=37. The reference range was not used to interpr et this result as deny l/abnormal. [facility] [id number] 09:04:00 Test Item Value Reference Range Interpretation Comments Alk Phos (test code = Alk Phos) 251 39-136 [facility] [id number] 09:04:00 Test Item Value Reference Range Interpretation Comments Bili Total (test code = Bili Total) 0.9 0.2-1.3 [facility] [id number] 09:04:00 Test Item Value Reference Range Interpretation Comments AGAP (test code = AGAP) 11.0 10.0-20.0 [facility] [id number] 09:04:00 Test Item Value Reference Range Interpretation Comments B/C Ratio (test code = B/C Ratio) 6 1 6-25 [facility] [id number] 09:04:00 Test Item Value Reference Range Interpretation Comments Globulin (test code = Globulin) 3.4 2.7-4.2 [facility] [id number] 09:04:00 Test Item Value Reference Range Interpretation Comments A/G Ratio (test code = A/G Ratio) 0.8 1 0.7-1.6 [facility]2022-07-18 09:04:00 Test Item Value Reference Range Interpretation Comments eGFR (test code = eGFR) 8 [facility] HospitalCfajsvfVTYGJXGJNK1817-68-58 09:04:00 Test Item Value Reference Range Interpretation Comments D-Dimer (test code = D-Dimer) 3.03 [facility] HospitalRtlodvcUWJNGLQYCA6172-55-85 09:04:00 Test Item Value Reference Range Interpretation Comments WBC (test code = WBC) 3.6 3.7-10.4 [facility] HospitalMnkbpbiLIQIDCQUGZ8818-51-23 09:04:00 Test Item Value Reference Range Interpretation Comments RBC (test code = RBC) 2.07 4.70-6.10 [facility] HospitalVdaydwiJPEJVEDEQQ9801-94-98 09:04:00 Test Item Value Reference Range Interpretation Comments Hgb (test code = Hgb) 7.5 14.0-18.0 [place] 264282-07-18 09:04:00 Test Item Value Reference Range Interpretation Comments Hct (test code = Hct) 22.0 42.0-54.0 [facility] HospitalZblqeqdLOWLXZYDLQ3088-94-00 09:04:00 Test Item Value Reference Range Interpretation Comments MCV (test code = MCV) 106.3 80.0-94.0 [facility] HospitalNgcarbsIGYBBEBHUY6352-59-99 09:04:00 Test Item Value Reference Range Interpretation Comments MCH (test code = MCH) 36.1 pg 27.0-31.0 [facility] HospitalValaoihSRNGZTEGRM0969-24-62 09:04:00 Test Item Value Reference Range Interpretation Comments MCHC (test code = MCHC) 33.9 32.0-36.0 [place] 264282-07-18 09:04:00 Test Item Value Reference Range Interpretation Comments RDW (test code = RDW) 23.9 11.5-14.5 [facility] HospitalTxxzhjuKATPTPMYEG7097-56-08 09:04:00 Test Item Value Reference Range Interpretation Comments Platelet (test code = Platelet) 133 133-450 [facility] HospitalGxhprsyBOMLOQXTYM6041-66-66 09:04:00 Test Item Value Reference Range Interpretation Comments MPV (test code = MPV) 8.1 7.4-10.4 [place] 264282-07-18 09:04:00 Test Item Value Reference Range Interpretation Comments Segs (test code = Segs) 60.8 45.0-75.0 [place] [address]-07-18 09:04:00 Test Item Value Reference Range Interpretation Comments Lymphocytes (test code = Lymphocytes) 22.3 20.0-40.0 [place] [address]-07-18 09:04:00 Test Item Value Reference Range Interpretation Comments Monocytes (test code = Monocytes) 13.9 2.0-12.0 [place] [address]-07-18 09:04:00 Test Item Value Reference Range Interpretation Comments Eosinophils (test code = 2.6 See_Comment [A utomated message] The Eosinophils) system which ge nerated this result tra nsmitted reference range : <=4.0. The reference r samantha was not used to int erpret this result as normal/abnormal . [place] [address]-07-18 09:04:00 Test Item Value Reference Range Interpretation Comments Basophils (test code = 0.4 See_Comment [Aut omated message] The Basophils) system which ge nerated this result tra nsmitted reference range : <=1.0. The reference r samantha was not used to int erpret this result as normal/abnormal . [place] 264282-07-18 09:04:00 Test Item Value Reference Range Interpretation Comments Neutrophils # (test code = Neutrophils 2.2 1.5-8.1 #) [place] 264282-07-18 09:04:00 Test Item Value Reference Range Interpretation Comments Lymphocytes # (test code = Lymphocytes 0.8 1.0-5.5 #) [place] [address]-07-18 09:04:00 Test Item Value Reference Range Interpretation Comments Monocytes # (test code 0.5 See_Comment [Aut omated message] The = Monocytes #) system which generated this result tra nsmitted reference range : <=0.8. The reference r samantha was not used to int erpret this result as normal/abnormal . [place] [address]-07-18 09:04:00 Test Item Value Reference Range Interpretation Comments Eosinophils # (test code 0.1 See_Comment [A utomated message] The = Eosinophils #) system whic h generated this result tra nsmitted reference range : <=0.5. The reference r samantha was not used to int erpret this result as normal/abnormal . [facility]evilleKeyuhowGQKUCVWSCM0241-54-56 09:04:00 Test Item Value Reference Range Interpretation Comments Macrocyte (test code = 1+ *ABN*(12/15/21 Macrocyte) 4:04 AM) [facility]evilleCpkigecUFTHDFNAXE1755-64-70 09:04:00 Test Item Value Reference Range Interpretation Comments C-REACTIVE PROTEIN (test code = 25.1 C-REACTIVE PROTEIN) [facility] BeevilleLixxkfvDVQTVMKZEH6150-04-11 09:04:00 Test Item Value Reference Range Interpretation Comments Vanco Lvl (test code = Vanco Lvl) 15.2 [facility] - [id number] 00:29:00 Test Item Value Reference Range Interpretation Comments MRSA by PCR (test Negative (12/14/21 7:29 code = MRSA by PCR) PM) [facility] - [id number] 00:29:00 Test Item Value Reference Range Interpretation Comments MRSA by PCR (test Negative (12/14/21 7:29 code = MRSA by PCR) PM) [facility] - [id number] 00:29:00 Test Item Value Reference Range Interpretation Comments MRSA by PCR (test Negative (12/14/21 7:29 code = MRSA by PCR) PM) [facility] - [id number] 00:29:00 Test Item Value Reference Range Interpretation Comments MRSA by PCR (test Negative (12/14/21 7:29 code = MRSA by PCR) PM) [facility] - [id number] 00:29:00 Test Item Value Reference Range Interpretation Comments MRSA by PCR (test Negative (12/14/21 7:29 code = MRSA by PCR) PM) [facility] - [id number] 00:29:00 Test Item Value Reference Range Interpretation Comments MRSA by PCR (test Negative (12/14/21 7:29 code = MRSA by PCR) PM) [facility] - [id number] 00:29:00 Test Item Value Reference Range Interpretation Comments MRSA by PCR (test Negative (12/14/21 7:29 code = MRSA by PCR) PM) [facility] - [id number] 00:29:00 Test Item Value Reference Range Interpretation Comments MRSA by PCR (test Negative (12/14/21 7:29 code = MRSA by PCR) PM) [facility] - [id number] 00:29:00 Test Item Value Reference Range Interpretation Comments MRSA by PCR (test Negative (12/14/21 7:29 code = MRSA by PCR) PM) [facility] - [id number] 00:29:00 Test Item Value Reference Range Interpretation Comments MRSA by PCR (test Negative (12/14/21 7:29 code = MRSA by PCR) PM) [facility]BA[facility] - [id number] 00:29:00 Test Item Value Reference Range Interpretation Comments MRSA by PCR (test Negative (12/14/21 7:29 code = MRSA by PCR) PM) [facility]annKSLECULAR [id number] 23:56:00 Test Item Value Reference Range Interpretation Comments Source Respiratory Nasophrngl Swb Panel PCR (test code = *NA*(12/14/21 6:56 PM) Source Respiratory Panel PCR) [facility]annKSLEC[facility] [id number] 23:56:00 Test Item Value Reference Range Interpretation Comments Influenza A PCR (test Negative (12/14/21 6:56 code = Influenza A PCR) PM) [facility]LE[facility] [id number] 23:56:00 Test Item Value Reference Range Interpretation Comments Influenza B PCR (test Negative (12/14/21 6:56 code = Influenza B PCR) PM) [facility] [id number] 23:56:00 Test Item Value Reference Range Interpretation Comments RSV PCR (test code = Negative (12/14/21 6:56 RSV PCR) PM) [facility]LE[facility] [id number] 23:56:00 Test Item Value Reference Range Interpretation Comments Source Respiratory Nasophrngl Swb Panel PCR (test code = *NA*(12/14/21 6:56 PM) Source Respiratory Panel PCR) [facility]LE[facility] [id number] 23:56:00 Test Item Value Reference Range Interpretation Comments Influenza A PCR (test Negative (12/14/21 6:56 code = Influenza A PCR) PM) [facility]LE[facility] [id number] 23:56:00 Test Item Value Reference Range Interpretation Comments Influenza B PCR (test Negative (12/14/21 6:56 code = Influenza B PCR) PM) [facility] [id number] 23:56:00 Test Item Value Reference Range Interpretation Comments RSV PCR (test code = Negative (12/14/21 6:56 RSV PCR) PM) [facility]LE[facility] [id number] 23:56:00 Test Item Value Reference Range Interpretation Comments Source Respiratory Nasophrngl Swb Panel PCR (test code = *NA*(12/14/21 6:56 PM) Source Respiratory Panel PCR) [facility]KS[facility]CPR[facility] [id number] 23:56:00 Test Item Value Reference Range Interpretation Comments Influenza A PCR (test Negative (12/14/21 6:56 code = Influenza A PCR) PM) [facility] [id number] 23:56:00 Test Item Value Reference Range Interpretation Comments Influenza B PCR (test Negative (12/14/21 6:56 code = Influenza B PCR) PM) [facility] [id number] 23:56:00 Test Item Value Reference Range Interpretation Comments RSV PCR (test code = Negative (12/14/21 6:56 RSV PCR) PM) [facility] [id number] 23:56:00 Test Item Value Reference Range Interpretation Comments Source Respiratory Nasophrngl Swb Panel PCR (test code = *NA*(12/14/21 6:56 PM) Source Respiratory Panel PCR) [facility]annKSLE[facility] [id number] 23:56:00 Test Item Value Reference Range Interpretation Comments Influenza A PCR (test Negative (12/14/21 6:56 code = Influenza A PCR) PM) [facility]LE[facility] [id number] 23:56:00 Test Item Value Reference Range Interpretation Comments Influenza B PCR (test Negative (12/14/21 6:56 code = Influenza B PCR) PM) [facility] [id number] 23:56:00 Test Item Value Reference Range Interpretation Comments RSV PCR (test code = Negative (12/14/21 6:56 RSV PCR) PM) [facility] [id number] 23:56:00 Test Item Value Reference Range Interpretation Comments Source Respiratory Nasophrngl Swb Panel PCR (test code = *NA*(12/14/21 6:56 PM) Source Respiratory Panel PCR) [facility] [id number] 23:56:00 Test Item Value Reference Range Interpretation Comments Influenza A PCR (test Negative (12/14/21 6:56 code = Influenza A PCR) PM) [facility] [id number] 23:56:00 Test Item Value Reference Range Interpretation Comments Influenza B PCR (test Negative (12/14/21 6:56 code = Influenza B PCR) PM) [facility] [id number] 23:56:00 Test Item Value Reference Range Interpretation Comments RSV PCR (test code = Negative (12/14/21 6:56 RSV PCR) PM) [facility] [id number] 23:56:00 Test Item Value Reference Range Interpretation Comments Source Respiratory Nasophrngl Swb Panel PCR (test code = *NA*(12/14/21 6:56 PM) Source Respiratory Panel PCR) [facility] [id number] 23:56:00 Test Item Value Reference Range Interpretation Comments Influenza A PCR (test Negative (12/14/21 6:56 code = Influenza A PCR) PM) [facility]KS[facility]CPR[facility] [id number] 23:56:00 Test Item Value Reference Range Interpretation Comments Influenza B PCR (test Negative (12/14/21 6:56 code = Influenza B PCR) PM) [facility] [id number] 23:56:00 Test Item Value Reference Range Interpretation Comments RSV PCR (test code = Negative (12/14/21 6:56 RSV PCR) PM) [facility] [id number] 23:56:00 Test Item Value Reference Range Interpretation Comments Source Respiratory Nasophrngl Swb Panel PCR (test code = *NA*(12/14/21 6:56 PM) Source Respiratory Panel PCR) [facility] [id number] 23:56:00 Test Item Value Reference Range Interpretation Comments Influenza A PCR (test Negative (12/14/21 6:56 code = Influenza A PCR) PM) [facility] [id number] 23:56:00 Test Item Value Reference Range Interpretation Comments Influenza B PCR (test Negative (12/14/21 6:56 code = Influenza B PCR) PM) [facility] [id number] 23:56:00 Test Item Value Reference Range Interpretation Comments RSV PCR (test code = Negative (12/14/21 6:56 RSV PCR) PM) [facility] [id number] 23:56:00 Test Item Value Reference Range Interpretation Comments Source Respiratory Nasophrngl Swb Panel PCR (test code = *NA*(12/14/21 6:56 PM) Source Respiratory Panel PCR) [facility] [id number] 23:56:00 Test Item Value Reference Range Interpretation Comments Influenza A PCR (test Negative (12/14/21 6:56 code = Influenza A PCR) PM) [facility] [id number] 23:56:00 Test Item Value Reference Range Interpretation Comments Influenza B PCR (test Negative (12/14/21 6:56 code = Influenza B PCR) PM) [facility] [id number] 23:56:00 Test Item Value Reference Range Interpretation Comments RSV PCR (test code = Negative (12/14/21 6:56 RSV PCR) PM) [facility] [id number] 23:56:00 Test Item Value Reference Range Interpretation Comments Source Respiratory Nasophrngl Swb Panel PCR (test code = *NA*(12/14/21 6:56 PM) Source Respiratory Panel PCR) [facility] [id number] 23:56:00 Test Item Value Reference Range Interpretation Comments Influenza A PCR (test Negative (12/14/21 6:56 code = Influenza A PCR) PM) [facility] [id number] 23:56:00 Test Item Value Reference Range Interpretation Comments Influenza B PCR (test Negative (12/14/21 6:56 code = Influenza B PCR) PM) [facility] [id number] 23:56:00 Test Item Value Reference Range Interpretation Comments RSV PCR (test code = Negative (12/14/21 6:56 RSV PCR) PM) [facility] [id number] 23:56:00 Test Item Value Reference Range Interpretation Comments Source Respiratory Nasophrngl Swb Panel PCR (test code = *NA*(12/14/21 6:56 PM) Source Respiratory Panel PCR) [facility] [id number] 23:56:00 Test Item Value Reference Range Interpretation Comments Influenza A PCR (test Negative (12/14/21 6:56 code = Influenza A PCR) PM) [facility] [id number] 23:56:00 Test Item Value Reference Range Interpretation Comments Influenza B PCR (test Negative (12/14/21 6:56 code = Influenza B PCR) PM) [facility] [id number] 23:56:00 Test Item Value Reference Range Interpretation Comments RSV PCR (test code = Negative (12/14/21 6:56 RSV PCR) PM) [facility] [id number] 23:56:00 Test Item Value Reference Range Interpretation Comments Source Respiratory Nasophrngl Swb Panel PCR (test code = *NA*(12/14/21 6:56 PM) Source Respiratory Panel PCR) [facility] [id number] 23:56:00 Test Item Value Reference Range Interpretation Comments Influenza A PCR (test Negative (12/14/21 6:56 code = Influenza A PCR) PM) [facility] [id number] 23:56:00 Test Item Value Reference Range Interpretation Comments Influenza B PCR (test Negative (12/14/21 6:56 code = Influenza B PCR) PM) [facility] [id number] 23:56:00 Test Item Value Reference Range Interpretation Comments RSV PCR (test code = Negative (12/14/21 6:56 RSV PCR) PM) [facility] [id number] 23:55:00 Test Item Value Reference Range Interpretation Comments BNP (test code = BNP) 1994 [facility] [id number] 23:55:00 Test Item Value Reference Range Interpretation Comments Procalcitonin Lvl (test 0.80 See_Comment [Au tomated message] code = Procalcitonin Lvl) Th e system which generated this result transmitted ref erence range: <=0.10. The reference range was not used to interpr et this result as normal/abnormal . [facility] [employer]2022-07-17 23:55:00 Test Item Value Reference Range Interpretation Comments BNP (test code = BNP) 1994 [facility] [employer] [id number] 23:55:00 Test Item Value Reference Range Interpretation Comments Procalcitonin Lvl (test 0.80 See_Comment [Au tomated message] code = Procalcitonin Lvl) Th e system which generated this result transmitted ref erence range: <=0.10. The reference range was not used to interpr et this result as normal/abnormal . [facility] [employer]2022-07-17 23:55:00 Test Item Value Reference Range Interpretation Comments BNP (test code = BNP) 1994 [facility] [employer] [id number] 23:55:00 Test Item Value Reference Range Interpretation Comments Procalcitonin Lvl (test 0.80 See_Comment [Au tomated message] code = Procalcitonin Lvl) Th e system which generated this result transmitted ref erence range: <=0.10. The reference range was not used to interpr et this result as normal/abnormal . [facility] [employer]2022-07-17 23:55:00 Test Item Value Reference Range Interpretation Comments BNP (test code = BNP) 1994 [facility] [employer] [id number] 23:55:00 Test Item Value Reference Range Interpretation Comments Procalcitonin Lvl (test 0.80 See_Comment [Au tomated message] code = Procalcitonin Lvl) Th e system which generated this result transmitted ref erence range: <=0.10. The reference range was not used to interpr et this result as normal/abnormal . [facility] [employer]2022-07-17 23:55:00 Test Item Value Reference Range Interpretation Comments BNP (test code = BNP) 1994 [facility] [employer] [id number] 23:55:00 Test Item Value Reference Range Interpretation Comments Procalcitonin Lvl (test 0.80 See_Comment [Au tomated message] code = Procalcitonin Lvl) Th e system which generated this result transmitted ref erence range: <=0.10. The reference range was not used to interpr et this result as normal/abnormal . [facility] [employer]2022-07-17 23:55:00 Test Item Value Reference Range Interpretation Comments BNP (test code = BNP) 1994 [facility] [employer] [id number] 23:55:00 Test Item Value Reference Range Interpretation Comments Procalcitonin Lvl (test 0.80 See_Comment [Au tomated message] code = Procalcitonin Lvl) e system which generated this result transmitted ref erence range: <=0.10. The reference range was not used to interpr et this result as normal/abnormal . [facility] [employer]2022-07-17 23:55:00 Test Item Value Reference Range Interpretation Comments BNP (test code = BNP) 1994 [facility] [employer] [id number] 23:55:00 Test Item Value Reference Range Interpretation Comments Procalcitonin Lvl (test 0.80 See_Comment [Au tomated message] code = Procalcitonin Lvl) e system which generated this result transmitted ref erence range: <=0.10. The reference range was not used to interpr et this result as normal/abnormal . [facility] [employer]2022-07-17 23:55:00 Test Item Value Reference Range Interpretation Comments BNP (test code = BNP) 1994 [facility] [employer] [id number] 23:55:00 Test Item Value Reference Range Interpretation Comments Procalcitonin Lvl (test 0.80 See_Comment [Au tomated message] code = Procalcitonin Lvl) e system which generated this result transmitted ref erence range: <=0.10. The reference range was not used to interpr et this result as normal/abnormal . [facility] [employer]2022-07-17 23:55:00 Test Item Value Reference Range Interpretation Comments BNP (test code = BNP) 1994 [facility] [employer] [id number] 23:55:00 Test Item Value Reference Range Interpretation Comments Procalcitonin Lvl (test 0.80 See_Comment [Au tomated message] code = Procalcitonin Lvl) e system which generated this result transmitted ref erence range: <=0.10. The reference range was not used to interpr et this result as normal/abnormal . [facility] [employer] [id number] 23:55:00 Test Item Value Reference Range Interpretation Comments BNP (test code = BNP) 1994 [facility] [employer] [id number] 23:55:00 Test Item Value Reference Range Interpretation Comments Procalcitonin Lvl (test 0.80 See_Comment [Au tomated message] code = Procalcitonin Lvl) e system which generated this result transmitted ref erence range: <=0.10. The reference range was not used to interpr et this result as normal/abnormal . [facility] [employer]2022-07-17 23:55:00 Test Item Value Reference Range Interpretation Comments BNP (test code = BNP) 1994 [facility] [employer] [id number] 23:55:00 Test Item Value Reference Range Interpretation Comments Procalcitonin Lvl (test 0.80 See_Comment [Au tomated message] code = Procalcitonin Lvl) e system which generated this result transmitted ref erence range: <=0.10. The reference range was not used to interpr et this result as normal/abnormal . [facility] [employer] [id number] 21:26:00 Test Item Value Reference Range Interpretation Comments HS Troponin I 1 Hr (test code = HS 389 Troponin I 1 Hr) [facility] [employer]2022-07-17 21:26:00 Test Item Value Reference Range Interpretation Comments HS Troponin I 0 to 1 Hour Delta (test 49 1 code = HS Troponin I 0 to 1 Hour Delta) [facility] [employer] [id number] 21:26:00 Test Item Value Reference Range Interpretation Comments HS Troponin I 1 Hr (test code = HS 389 Troponin I 1 Hr) [facility] [employer] [id number] 21:26:00 Test Item Value Reference Range Interpretation Comments HS Troponin I 0 to 1 Hour Delta (test 49 1 code = HS Troponin I 0 to 1 Hour Delta) [facility] [employer] [id number] 21:26:00 Test Item Value Reference Range Interpretation Comments HS Troponin I 1 Hr (test code = HS 389 Troponin I 1 Hr) [facility] [employer] [id number] 21:26:00 Test Item Value Reference Range Interpretation Comments HS Troponin I 0 to 1 Hour Delta (test 49 1 code = HS Troponin I 0 to 1 Hour Delta) [facility] [id number] 21:26:00 Test Item Value Reference Range Interpretation Comments HS Troponin I 1 Hr (test code = HS 389 Troponin I 1 Hr) [facility] [id number] 21:26:00 Test Item Value Reference Range Interpretation Comments HS Troponin I 0 to 1 Hour Delta (test 49 1 code = HS Troponin I 0 to 1 Hour Delta) [facility] [id number] 21:26:00 Test Item Value Reference Range Interpretation Comments HS Troponin I 1 Hr (test code = HS 389 Troponin I 1 Hr) [facility] [id number] 21:26:00 Test Item Value Reference Range Interpretation Comments HS Troponin I 0 to 1 Hour Delta (test 49 1 code = HS Troponin I 0 to 1 Hour Delta) [facility] [id number] 21:26:00 Test Item Value Reference Range Interpretation Comments HS Troponin I 1 Hr (test code = HS 389 Troponin I 1 Hr) [facility] [id number] 21:26:00 Test Item Value Reference Range Interpretation Comments HS Troponin I 0 to 1 Hour Delta (test 49 1 code = HS Troponin I 0 to 1 Hour Delta) [facility] [id number] 21:26:00 Test Item Value Reference Range Interpretation Comments HS Troponin I 1 Hr (test code = HS 389 Troponin I 1 Hr) [facility] [id number] 21:26:00 Test Item Value Reference Range Interpretation Comments HS Troponin I 0 to 1 Hour Delta (test 49 1 code = HS Troponin I 0 to 1 Hour Delta) [facility] [id number] 21:26:00 Test Item Value Reference Range Interpretation Comments HS Troponin I 1 Hr (test code = HS 389 Troponin I 1 Hr) [facility] [id number] 21:26:00 Test Item Value Reference Range Interpretation Comments HS Troponin I 0 to 1 Hour Delta (test 49 1 code = HS Troponin I 0 to 1 Hour Delta) [facility] [id number] 21:26:00 Test Item Value Reference Range Interpretation Comments HS Troponin I 1 Hr (test code = HS 389 Troponin I 1 Hr) [facility] [employer] [id number] 21:26:00 Test Item Value Reference Range Interpretation Comments HS Troponin I 0 to 1 Hour Delta (test 49 1 code = HS Troponin I 0 to 1 Hour Delta) [facility] [employer]annC[employer]AC [id number] 21:26:00 Test Item Value Reference Range Interpretation Comments HS Troponin I 1 Hr (test code = HS 389 Troponin I 1 Hr) [facility]land[facility]ISONAC [id number] 21:26:00 Test Item Value Reference Range Interpretation Comments HS Troponin I 0 to 1 Hour Delta (test 49 1 code = HS Troponin I 0 to 1 Hour Delta) [facility] [employer] [id number] 21:26:00 Test Item Value Reference Range Interpretation Comments HS Troponin I 1 Hr (test code = HS 389 Troponin I 1 Hr) [facility] [id number] 21:26:00 Test Item Value Reference Range Interpretation Comments HS Troponin I 0 to 1 Hour Delta (test 49 1 code = HS Troponin I 0 to 1 Hour Delta) [facility] [id number] 20:10:00 Test Item Value Reference Range Interpretation Comments HS Troponin I Baseline (test code = HS 340 Troponin I Baseline) [facility] [employer] [id number] 20:10:00 Test Item Value Reference Range Interpretation Comments Glucose Lvl (test code = Glucose Lvl) 60 70-99 [facility] [employer] [id number] 20:10:00 Test Item Value Reference Range Interpretation Comments BUN (test code = BUN) 35 7-22 [facility] [employer] [id number] 20:10:00 Test Item Value Reference Range Interpretation Comments Creatinine Lvl (test code = Creatinine 6.10 0.50-1.40 Lvl) [facility] [employer] [id number] 20:10:00 Test Item Value Reference Range Interpretation Comments Sodium Lvl (test code = Sodium Lvl) 139 135-145 [facility] [employer] [id number] 20:10:00 Test Item Value Reference Range Interpretation Comments Potassium Lvl (test code = Potassium 3.1 3.5-5.1 Lvl) [facility] [employer] [id number] 20:10:00 Test Item Value Reference Range Interpretation Comments Chloride Lvl (test code = Chloride Lvl) 105 95-109 [place] [id number] 20:10:00 Test Item Value Reference Range Interpretation Comments CO2 (test code = CO2) 28 24-32 [facility]2022-07-17 20:10:00 Test Item Value Reference Range Interpretation Comments Calcium Lvl (test code = Calcium Lvl) 8.1 8.5-10.5 [facility]2022-07-17 20:10:00 Test Item Value Reference Range Interpretation Comments Total Protein (test code = Total 5.8 6.4-8.4 Protein) [facility]2022-07-17 20:10:00 Test Item Value Reference Range Interpretation Comments Albumin Lvl (test code = Albumin Lvl) 2.6 3.5-5.0 [facility] [id number] 20:10:00 Test Item Value Reference Range Interpretation Comments ALT (test code = ALT) 74 See_Comment [Auto mated message] The system which ge nerated this result transmit swathi reference range : <=65. The reference range was not used to interpr et this result as deny l/abnormal. [facility] [id number] 20:10:00 Test Item Value Reference Range Interpretation Comments AST (test code = AST) 117 See_Comment [Auto mated message] The system which ge nerated this result transmit swathi reference range : <=37. The reference range was not used to interpr et this result as deny l/abnormal. [facility] [id number] 20:10:00 Test Item Value Reference Range Interpretation Comments Alk Phos (test code = Alk Phos) 241 39-136 [facility] [id number] 20:10:00 Test Item Value Reference Range Interpretation Comments Bili Total (test code = Bili Total) 0.8 0.2-1.3 [facility] [id number] 20:10:00 Test Item Value Reference Range Interpretation Comments AGAP (test code = AGAP) 9.1 10.0-20.0 [facility] [id number] 20:10:00 Test Item Value Reference Range Interpretation Comments B/C Ratio (test code = B/C Ratio) 6 1 6-25 [facility]2022-07-17 20:10:00 Test Item Value Reference Range Interpretation Comments Globulin (test code = Globulin) 3.2 2.7-4.2 [facility]2022-07-17 20:10:00 Test Item Value Reference Range Interpretation Comments A/G Ratio (test code = A/G Ratio) 0.8 1 0.7-1.6 [facility]2022-07-17 20:10:00 Test Item Value Reference Range Interpretation Comments eGFR (test code = eGFR) 9 [id number] 20:10:00 Test Item Value Reference Range Interpretation Comments WBC (test code = WBC) 4.3 3.7-10.4 [facility] H[id number] 20:10:00 Test Item Value Reference Range Interpretation Comments RBC (test code = RBC) 2.17 4.70-6.10 [facility] HospitalXzcgdioCYKEWWEOIQ6922-20-18 20:10:00 Test Item Value Reference Range Interpretation Comments Hgb (test code = Hgb) 7.7 14.0-18.0 [facility] H[id number] 20:10:00 Test Item Value Reference Range Interpretation Comments Hct (test code = Hct) 22.9 42.0-54.0 [facility] H[id number] 20:10:00 Test Item Value Reference Range Interpretation Comments MCV (test code = MCV) 105.9 80.0-94.0 [facility] HospitalEcdrptzCMLFRYMCPC8415-01-23 20:10:00 Test Item Value Reference Range Interpretation Comments MCH (test code = MCH) 35.4 pg 27.0-31.0 [facility] HospitalUfamkduCSXYNVHBRZ5314-19-00 20:10:00 Test Item Value Reference Range Interpretation Comments MCHC (test code = MCHC) 33.4 32.0-36.0 [place] 264282-07-17 20:10:00 Test Item Value Reference Range Interpretation Comments RDW (test code = RDW) 23.6 11.5-14.5 [place] 264282-07-17 20:10:00 Test Item Value Reference Range Interpretation Comments Platelet (test code = Platelet) 146 133-450 [facility] HospitalZgtmfnvTXVHUQOXJK7289-13-82 20:10:00 Test Item Value Reference Range Interpretation Comments MPV (test code = MPV) 8.0 7.4-10.4 [place] 264282-07-17 20:10:00 Test Item Value Reference Range Interpretation Comments Plt Morph (test code = Normal (12/14/21 3:10 Plt Morph) PM) [place] 264282-07-17 20:10:00 Test Item Value Reference Range Interpretation Comments Segs (test code = Segs) 67.4 45.0-75.0 [place] 264282-07-17 20:10:00 Test Item Value Reference Range Interpretation Comments Lymphocytes (test code = Lymphocytes) 12.8 20.0-40.0 [place] 264282-07-17 20:10:00 Test Item Value Reference Range Interpretation Comments Monocytes (test code = Monocytes) 15.1 2.0-12.0 [place] 264282-07-17 20:10:00 Test Item Value Reference Range Interpretation Comments Eosinophils (test code = 4.1 See_Comment [A utomated message] The Eosinophils) system which ge nerated this result tra nsmitted reference range : <=4.0. The reference r samantha was not used to int erpret this result as normal/abnormal . [facility] Hos[id number] 20:10:00 Test Item Value Reference Range Interpretation Comments Basophils (test code = 0.6 See_Comment [Aut omated message] The Basophils) system which ge nerated this result tra nsmitted reference range : <=1.0. The reference r samantha was not used to int erpret this result as normal/abnormal . [facility] H[id number] 20:10:00 Test Item Value Reference Range Interpretation Comments Neutrophils # (test code = Neutrophils 2.9 1.5-8.1 #) [place] 264282-07-17 20:10:00 Test Item Value Reference Range Interpretation Comments Lymphocytes # (test code = Lymphocytes 0.5 1.0-5.5 #) [place] 264282-07-17 20:10:00 Test Item Value Reference Range Interpretation Comments Monocytes # (test code 0.6 See_Comment [Aut omated message] The = Monocytes #) system which generated this result tra nsmitted reference range : <=0.8. The reference r samantha was not used to int erpret this result as normal/abnormal . [facility]UdtctnvOCJPMCFHAW6453-46-82 20:10:00 Test Item Value Reference Range Interpretation Comments Eosinophils # (test code 0.2 See_Comment [A utomated message] The = Eosinophils #) system whic h generated this result tra nsmitted reference range : <=0.5. The reference r samantha was not used to int erpret this result as normal/abnormal . [facility]evilleEaybxxfYRIVBMUYMT9125-68-31 20:10:00 Test Item Value Reference Range Interpretation Comments Anisocyte (test code = 1+ *ABN*(12/14/21 Anisocyte) 3:10 PM) [facility]CzaplmbZSQVHEXNME1620-38-39 20:10:00 Test Item Value Reference Range Interpretation Comments Macrocyte (test code = 1+ *ABN*(12/14/21 Macrocyte) 3:10 PM) [facility]evilleXkcpxhaAPYARMDBKM6460-93-40 20:10:00 Test Item Value Reference Range Interpretation Comments Coronavirus (COVID-19) Detected MANUEL (test code = 4*ABN*(12/14/21 3:10 Coronavirus (COVID-19) PM) MANUEL) [facility]eville[facility]ARD[facility] [id number] 20:10:00 Test Item Value Reference Range Interpretation Comments HS Troponin I Baseline (test code = HS 340 Troponin I Baseline) [facility] [id number] 20:10:00 Test Item Value Reference Range Interpretation Comments Glucose Lvl (test code = Glucose Lvl) 60 70-99 [facility] [id number] 20:10:00 Test Item Value Reference Range Interpretation Comments BUN (test code = BUN) 35 7-22 [facility] [id number] 20:10:00 Test Item Value Reference Range Interpretation Comments Creatinine Lvl (test code = Creatinine 6.10 0.50-1.40 Lvl) [facility] [id number] 20:10:00 Test Item Value Reference Range Interpretation Comments Sodium Lvl (test code = Sodium Lvl) 139 135-145 [facility]2022-07-17 20:10:00 Test Item Value Reference Range Interpretation Comments Potassium Lvl (test code = Potassium 3.1 3.5-5.1 Lvl) [facility] [id number] 20:10:00 Test Item Value Reference Range Interpretation Comments Chloride Lvl (test code = Chloride Lvl) 105 95-109 [facility] [id number] 20:10:00 Test Item Value Reference Range Interpretation Comments CO2 (test code = CO2) 28 24-32 [place] 412362-07-17 20:10:00 Test Item Value Reference Range Interpretation Comments Calcium Lvl (test code = Calcium Lvl) 8.1 8.5-10.5 [facility] [id number] 20:10:00 Test Item Value Reference Range Interpretation Comments Total Protein (test code = Total 5.8 6.4-8.4 Protein) [facility] [id number] 20:10:00 Test Item Value Reference Range Interpretation Comments Albumin Lvl (test code = Albumin Lvl) 2.6 3.5-5.0 [facility] [id number] 20:10:00 Test Item Value Reference Range Interpretation Comments ALT (test code = ALT) 74 See_Comment [Auto mated message] The system which ge nerated this result transmit swathi reference range : <=65. The reference range was not used to interpr et this result as deny l/abnormal. [facility] [id number] 20:10:00 Test Item Value Reference Range Interpretation Comments AST (test code = AST) 117 See_Comment [Auto mated message] The system which ge nerated this result transmit swathi reference range : <=37. The reference range was not used to interpr et this result as deny l/abnormal. [facility] [employer] [id number] 20:10:00 Test Item Value Reference Range Interpretation Comments Alk Phos (test code = Alk Phos) 241 39-136 [facility] [id number] 20:10:00 Test Item Value Reference Range Interpretation Comments Bili Total (test code = Bili Total) 0.8 0.2-1.3 [facility] [id number] 20:10:00 Test Item Value Reference Range Interpretation Comments AGAP (test code = AGAP) 9.1 10.0-20.0 [facility] [id number] 20:10:00 Test Item Value Reference Range Interpretation Comments B/C Ratio (test code = B/C Ratio) 6 1 6-25 [facility]2022-07-17 20:10:00 Test Item Value Reference Range Interpretation Comments Globulin (test code = Globulin) 3.2 2.7-4.2 [facility]2022-07-17 20:10:00 Test Item Value Reference Range Interpretation Comments A/G Ratio (test code = A/G Ratio) 0.8 1 0.7-1.6 [facility]2022-07-17 20:10:00 Test Item Value Reference Range Interpretation Comments eGFR (test code = eGFR) 9 [facility]wkpvvhSUWGUSWXXJ8916-72-63 20:10:00 Test Item Value Reference Range Interpretation Comments WBC (test code = WBC) 4.3 3.7-10.4 [facility] HospitalXdzbqfxPGHSWNSSRU5003-06-43 20:10:00 Test Item Value Reference Range Interpretation Comments RBC (test code = RBC) 2.17 4.70-6.10 [facility] HospitalDfpwpttSLOACBUNDM5900-60-84 20:10:00 Test Item Value Reference Range Interpretation Comments Hgb (test code = Hgb) 7.7 14.0-18.0 [place] 264282-07-17 20:10:00 Test Item Value Reference Range Interpretation Comments Hct (test code = Hct) 22.9 42.0-54.0 [facility] HospitalMqlpagmTAQJNFEIYO8347-63-50 20:10:00 Test Item Value Reference Range Interpretation Comments MCV (test code = MCV) 105.9 80.0-94.0 [facility] HospitalDxrcmelQCTEFNLBMJ3446-10-21 20:10:00 Test Item Value Reference Range Interpretation Comments MCH (test code = MCH) 35.4 pg 27.0-31.0 [place] 264282-07-17 20:10:00 Test Item Value Reference Range Interpretation Comments MCHC (test code = MCHC) 33.4 32.0-36.0 [place] 264282-07-17 20:10:00 Test Item Value Reference Range Interpretation Comments RDW (test code = RDW) 23.6 11.5-14.5 [facility] HospitalFnotpufSKCJLREPCU8270-02-21 20:10:00 Test Item Value Reference Range Interpretation Comments Platelet (test code = Platelet) 146 133-450 [facility] HospitalKyaikrkIFAZERKGZQ1522-36-27 20:10:00 Test Item Value Reference Range Interpretation Comments MPV (test code = MPV) 8.0 7.4-10.4 [facility] HospitalMncfjfqQJGATTGHOH1055-03-50 20:10:00 Test Item Value Reference Range Interpretation Comments Plt Morph (test code = Normal (12/14/21 3:10 Plt Morph) PM) [facility] HospitalGyysvmxKCRNDXPWVI6834-84-42 20:10:00 Test Item Value Reference Range Interpretation Comments Segs (test code = Segs) 67.4 45.0-75.0 [facility] HospitalJxxjhsxBLIYDLOTXB2951-98-41 20:10:00 Test Item Value Reference Range Interpretation Comments Lymphocytes (test code = Lymphocytes) 12.8 20.0-40.0 [facility] HospitalBczyidfNYPOAJQDCR6361-26-08 20:10:00 Test Item Value Reference Range Interpretation Comments Monocytes (test code = Monocytes) 15.1 2.0-12.0 [facility] HospitalHkrhvxcUOSBTVAGHZ0933-15-44 20:10:00 Test Item Value Reference Range Interpretation Comments Eosinophils (test code = 4.1 See_Comment [A utomated message] The Eosinophils) system which ge nerated this result tra nsmitted reference range : <=4.0. The reference r samantha was not used to int erpret this result as normal/abnormal . [facility] HospitalCijmklaCNGKIZFGTT4243-85-25 20:10:00 Test Item Value Reference Range Interpretation Comments Basophils (test code = 0.6 See_Comment [Aut omated message] The Basophils) system which ge nerated this result tra nsmitted reference range : <=1.0. The reference r samantha was not used to int erpret this result as normal/abnormal . [facility] HospitalStnsffjBNNGKZAGGJ7100-86-28 20:10:00 Test Item Value Reference Range Interpretation Comments Neutrophils # (test code = Neutrophils 2.9 1.5-8.1 #) [facility] HospitalFfdhnxhWHZHRVAAUI8823-26-07 20:10:00 Test Item Value Reference Range Interpretation Comments Lymphocytes # (test code = Lymphocytes 0.5 1.0-5.5 #) [place] 264282-07-17 20:10:00 Test Item Value Reference Range Interpretation Comments Monocytes # (test code 0.6 See_Comment [Aut omated message] The = Monocytes #) system which generated this result tra nsmitted reference range : <=0.8. The reference r samantha was not used to int erpret this result as normal/abnormal . [facility]UmldcnpUWNBBTAHAX7846-68-68 20:10:00 Test Item Value Reference Range Interpretation Comments Eosinophils # (test code 0.2 See_Comment [A utomated message] The = Eosinophils #) system whic h generated this result tra nsmitted reference range : <=0.5. The reference r samantha was not used to int erpret this result as normal/abnormal . [facility] MichiganQultxaeAJNLMHNJMY3389-39-80 20:10:00 Test Item Value Reference Range Interpretation Comments Anisocyte (test code = 1+ *ABN*(12/14/21 Anisocyte) 3:10 PM) [facility]MzojjxmLUSISUUJGO9807-63-08 20:10:00 Test Item Value Reference Range Interpretation Comments Macrocyte (test code = 1+ *ABN*(12/14/21 Macrocyte) 3:10 PM) [facility]KtjbignZVSIKUWZTC1364-10-03 20:10:00 Test Item Value Reference Range Interpretation Comments Coronavirus (COVID-19) Detected MANUEL (test code = 4*ABN*(12/14/21 3:10 Coronavirus (COVID-19) PM) MANUEL) [facility] WXOGGKO8270-83-29 20:10:00 Test Item Value Reference Range Interpretation Comments HS Troponin I Baseline (test code = HS 340 Troponin I Baseline) [facility] [id number] 20:10:00 Test Item Value Reference Range Interpretation Comments Glucose Lvl (test code = Glucose Lvl) 60 70-99 [facility] [id number] 20:10:00 Test Item Value Reference Range Interpretation Comments BUN (test code = BUN) 35 7-22 [facility] AFYHD9892-14-06 20:10:00 Test Item Value Reference Range Interpretation Comments Creatinine Lvl (test code = Creatinine 6.10 0.50-1.40 Lvl) [facility] [id number] 20:10:00 Test Item Value Reference Range Interpretation Comments Sodium Lvl (test code = Sodium Lvl) 139 135-145 [facility] [id number] 20:10:00 Test Item Value Reference Range Interpretation Comments Potassium Lvl (test code = Potassium 3.1 3.5-5.1 Lvl) [place] 412362-07-17 20:10:00 Test Item Value Reference Range Interpretation Comments Chloride Lvl (test code = Chloride Lvl) 105 95-109 [place] 412362-07-17 20:10:00 Test Item Value Reference Range Interpretation Comments CO2 (test code = CO2) 28 24-32 [place] 412362-07-17 20:10:00 Test Item Value Reference Range Interpretation Comments Calcium Lvl (test code = Calcium Lvl) 8.1 8.5-10.5 [place] 412362-07-17 20:10:00 Test Item Value Reference Range Interpretation Comments Total Protein (test code = Total 5.8 6.4-8.4 Protein) [place] 412362-07-17 20:10:00 Test Item Value Reference Range Interpretation Comments Albumin Lvl (test code = Albumin Lvl) 2.6 3.5-5.0 [place] 412362-07-17 20:10:00 Test Item Value Reference Range Interpretation Comments ALT (test code = ALT) 74 See_Comment [Auto mated message] The system which ge nerated this result transmit swathi reference range : <=65. The reference range was not used to interpr et this result as deny l/abnormal. [place] 412362-07-17 20:10:00 Test Item Value Reference Range Interpretation Comments AST (test code = AST) 117 See_Comment [Auto mated message] The system which ge nerated this result transmit swathi reference range : <=37. The reference range was not used to interpr et this result as deny l/abnormal. [facility] [id number] 20:10:00 Test Item Value Reference Range Interpretation Comments Alk Phos (test code = Alk Phos) 241 39-136 [place] 412362-07-17 20:10:00 Test Item Value Reference Range Interpretation Comments Bili Total (test code = Bili Total) 0.8 0.2-1.3 [place] 412362-07-17 20:10:00 Test Item Value Reference Range Interpretation Comments AGAP (test code = AGAP) 9.1 10.0-20.0 [facility] [id number] 20:10:00 Test Item Value Reference Range Interpretation Comments B/C Ratio (test code = B/C Ratio) 6 1 6-25 [facility]2022-07-17 20:10:00 Test Item Value Reference Range Interpretation Comments Globulin (test code = Globulin) 3.2 2.7-4.2 [facility]2022-07-17 20:10:00 Test Item Value Reference Range Interpretation Comments A/G Ratio (test code = A/G Ratio) 0.8 1 0.7-1.6 [facility]2022-07-17 20:10:00 Test Item Value Reference Range Interpretation Comments eGFR (test code = eGFR) 9 [facility] HospitalTsfocewBMZHUCARRV6083-06-05 20:10:00 Test Item Value Reference Range Interpretation Comments WBC (test code = WBC) 4.3 3.7-10.4 [facility] HospitalIwxbcriHXYTODHYPG1775-37-64 20:10:00 Test Item Value Reference Range Interpretation Comments RBC (test code = RBC) 2.17 4.70-6.10 [facility] HospitalZsbilitSJUVEUWRRZ8179-87-57 20:10:00 Test Item Value Reference Range Interpretation Comments Hgb (test code = Hgb) 7.7 14.0-18.0 [facility] HospitalWluxrdxQPIMYTACXQ2238-24-10 20:10:00 Test Item Value Reference Range Interpretation Comments Hct (test code = Hct) 22.9 42.0-54.0 [facility] HospitalKtgschzRYJZMLTGWT8326-49-15 20:10:00 Test Item Value Reference Range Interpretation Comments MCV (test code = MCV) 105.9 80.0-94.0 [facility] HospitalXymghfrQYWJFEJTML4998-15-69 20:10:00 Test Item Value Reference Range Interpretation Comments MCH (test code = MCH) 35.4 pg 27.0-31.0 [facility] HospitalLtqlzhsGPGFHSURXH2695-02-88 20:10:00 Test Item Value Reference Range Interpretation Comments MCHC (test code = MCHC) 33.4 32.0-36.0 [facility] HospitalPmbftzwYIFOGWEDQE0301-84-84 20:10:00 Test Item Value Reference Range Interpretation Comments RDW (test code = RDW) 23.6 11.5-14.5 [facility] HospitalUwrssmfDZPLINPCGR8820-29-23 20:10:00 Test Item Value Reference Range Interpretation Comments Platelet (test code = Platelet) 146 133-450 [place] 264282-07-17 20:10:00 Test Item Value Reference Range Interpretation Comments MPV (test code = MPV) 8.0 7.4-10.4 [place] 264282-07-17 20:10:00 Test Item Value Reference Range Interpretation Comments Plt Morph (test code = Normal (12/14/21 3:10 Plt Morph) PM) [place] 264282-07-17 20:10:00 Test Item Value Reference Range Interpretation Comments Segs (test code = Segs) 67.4 45.0-75.0 [place] 264282-07-17 20:10:00 Test Item Value Reference Range Interpretation Comments Lymphocytes (test code = Lymphocytes) 12.8 20.0-40.0 [place] 264282-07-17 20:10:00 Test Item Value Reference Range Interpretation Comments Monocytes (test code = Monocytes) 15.1 2.0-12.0 [place] 264282-07-17 20:10:00 Test Item Value Reference Range Interpretation Comments Eosinophils (test code = 4.1 See_Comment [A utomated message] The Eosinophils) system which ge nerated this result tra nsmitted reference range : <=4.0. The reference r samantha was not used to int erpret this result as normal/abnormal . [place] 264282-07-17 20:10:00 Test Item Value Reference Range Interpretation Comments Basophils (test code = 0.6 See_Comment [Aut omated message] The Basophils) system which ge nerated this result tra nsmitted reference range : <=1.0. The reference r samantha was not used to int erpret this result as normal/abnormal . [facility] HospitalJfybzueJITWJNOKYF0971-26-96 20:10:00 Test Item Value Reference Range Interpretation Comments Neutrophils # (test code = Neutrophils 2.9 1.5-8.1 #) [place] 264282-07-17 20:10:00 Test Item Value Reference Range Interpretation Comments Lymphocytes # (test code = Lymphocytes 0.5 1.0-5.5 #) [place] 264282-07-17 20:10:00 Test Item Value Reference Range Interpretation Comments Monocytes # (test code 0.6 See_Comment [Aut omated message] The = Monocytes #) system which generated this result tra nsmitted reference range : <=0.8. The reference r samantha was not used to int erpret this result as normal/abnormal . [facility] HospitalOdgyqcgRUOPPXZYWE2738-20-77 20:10:00 Test Item Value Reference Range Interpretation Comments Eosinophils # (test code 0.2 See_Comment [A utomated message] The = Eosinophils #) system whic h generated this result tra nsmitted reference range : <=0.5. The reference r samantha was not used to int erpret this result as normal/abnormal . [facility] HospitalAzgzpyhGIOTHFDHSH5297-15-62 20:10:00 Test Item Value Reference Range Interpretation Comments Anisocyte (test code = 1+ *ABN*(12/14/21 Anisocyte) 3:10 PM) [facility] HospitalQggexqoDRBOOFKWQE3633-52-54 20:10:00 Test Item Value Reference Range Interpretation Comments Macrocyte (test code = 1+ *ABN*(12/14/21 Macrocyte) 3:10 PM) [facility]JdlnicuBTOXLDZZBX2327-06-69 20:10:00 Test Item Value Reference Range Interpretation Comments Coronavirus (COVID-19) Detected MANUEL (test code = 4*ABN*(12/14/21 3:10 Coronavirus (COVID-19) PM) MANUEL) [facility] IKGWRLZ4211-89-51 20:10:00 Test Item Value Reference Range Interpretation Comments HS Troponin I Baseline (test code = HS 340 Troponin I Baseline) [facility]2022-07-17 20:10:00 Test Item Value Reference Range Interpretation Comments Glucose Lvl (test code = Glucose Lvl) 60 70-99 [facility]2022-07-17 20:10:00 Test Item Value Reference Range Interpretation Comments BUN (test code = BUN) 35 7-22 [facility] [id number] 20:10:00 Test Item Value Reference Range Interpretation Comments Creatinine Lvl (test code = Creatinine 6.10 0.50-1.40 Lvl) [facility]2022-07-17 20:10:00 Test Item Value Reference Range Interpretation Comments Sodium Lvl (test code = Sodium Lvl) 139 135-145 [facility]2022-07-17 20:10:00 Test Item Value Reference Range Interpretation Comments Potassium Lvl (test code = Potassium 3.1 3.5-5.1 Lvl) [facility] [id number] 20:10:00 Test Item Value Reference Range Interpretation Comments Chloride Lvl (test code = Chloride Lvl) 105 95-109 [facility] [id number] 20:10:00 Test Item Value Reference Range Interpretation Comments CO2 (test code = CO2) 28 24-32 [facility] [id number] 20:10:00 Test Item Value Reference Range Interpretation Comments Calcium Lvl (test code = Calcium Lvl) 8.1 8.5-10.5 [facility] [employer] [id number] 20:10:00 Test Item Value Reference Range Interpretation Comments Total Protein (test code = Total 5.8 6.4-8.4 Protein) [facility] [id number] 20:10:00 Test Item Value Reference Range Interpretation Comments Albumin Lvl (test code = Albumin Lvl) 2.6 3.5-5.0 [facility] [employer] [id number] 20:10:00 Test Item Value Reference Range Interpretation Comments ALT (test code = ALT) 74 See_Comment [Auto mated message] The system which ge nerated this result transmit swathi reference range : <=65. The reference range was not used to interpr et this result as deny l/abnormal. [facility] [employer] IXMUY9734-31-07 20:10:00 Test Item Value Reference Range Interpretation Comments AST (test code = AST) 117 See_Comment [Auto mated message] The system which ge nerated this result transmit swathi reference range : <=37. The reference range was not used to interpr et this result as deny l/abnormal. [facility] [employer] [id number] 20:10:00 Test Item Value Reference Range Interpretation Comments Alk Phos (test code = Alk Phos) 241 39-136 [facility] [employer] RZYRV5616-05-34 20:10:00 Test Item Value Reference Range Interpretation Comments Bili Total (test code = Bili Total) 0.8 0.2-1.3 [facility]anCARD[facility] [id number] 20:10:00 Test Item Value Reference Range Interpretation Comments HS Troponin I Baseline (test code = HS 340 Troponin I Baseline) [facility] [employer] [id number] 20:10:00 Test Item Value Reference Range Interpretation Comments Glucose Lvl (test code = Glucose Lvl) 60 70-99 [place] 412362-07-17 20:10:00 Test Item Value Reference Range Interpretation Comments BUN (test code = BUN) 35 7-22 [place] 412362-07-17 20:10:00 Test Item Value Reference Range Interpretation Comments Creatinine Lvl (test code = Creatinine 6.10 0.50-1.40 Lvl) [place] 412362-07-17 20:10:00 Test Item Value Reference Range Interpretation Comments Sodium Lvl (test code = Sodium Lvl) 139 135-145 [place] 412362-07-17 20:10:00 Test Item Value Reference Range Interpretation Comments Potassium Lvl (test code = Potassium 3.1 3.5-5.1 Lvl) [place] 412362-07-17 20:10:00 Test Item Value Reference Range Interpretation Comments AGAP (test code = AGAP) 9.1 10.0-20.0 [place] 412362-07-17 20:10:00 Test Item Value Reference Range Interpretation Comments Chloride Lvl (test code = Chloride Lvl) 105 95-109 [place] 412362-07-17 20:10:00 Test Item Value Reference Range Interpretation Comments CO2 (test code = CO2) 28 24-32 [place] 412362-07-17 20:10:00 Test Item Value Reference Range Interpretation Comments Calcium Lvl (test code = Calcium Lvl) 8.1 8.5-10.5 [place] 412362-07-17 20:10:00 Test Item Value Reference Range Interpretation Comments Total Protein (test code = Total 5.8 6.4-8.4 Protein) [place] 412362-07-17 20:10:00 Test Item Value Reference Range Interpretation Comments Albumin Lvl (test code = Albumin Lvl) 2.6 3.5-5.0 [place] 412362-07-17 20:10:00 Test Item Value Reference Range Interpretation Comments ALT (test code = ALT) 74 See_Comment [Auto mated message] The system which ge nerated this result transmit swathi reference range : <=65. The reference range was not used to interpr et this result as deny l/abnormal. [place] 412362-07-17 20:10:00 Test Item Value Reference Range Interpretation Comments AST (test code = AST) 117 See_Comment [Auto mated message] The system which ge nerated this result transmit swathi reference range : <=37. The reference range was not used to interpr et this result as deny l/abnormal. [place] 412362-07-17 20:10:00 Test Item Value Reference Range Interpretation Comments Alk Phos (test code = Alk Phos) 241 39-136 [place] 412362-07-17 20:10:00 Test Item Value Reference Range Interpretation Comments Bili Total (test code = Bili Total) 0.8 0.2-1.3 [place] 412362-07-17 20:10:00 Test Item Value Reference Range Interpretation Comments AGAP (test code = AGAP) 9.1 10.0-20.0 [place] 412362-07-17 20:10:00 Test Item Value Reference Range Interpretation Comments B/C Ratio (test code = B/C Ratio) 6 1 6-25 [place] 412362-07-17 20:10:00 Test Item Value Reference Range Interpretation Comments B/C Ratio (test code = B/C Ratio) 6 1 -25 [place] 412362-07-17 20:10:00 Test Item Value Reference Range Interpretation Comments Globulin (test code = Globulin) 3.2 2.7-4.2 [place] 412362-07-17 20:10:00 Test Item Value Reference Range Interpretation Comments A/G Ratio (test code = A/G Ratio) 0.8 1 0.7-1.6 [place] 412362-07-17 20:10:00 Test Item Value Reference Range Interpretation Comments eGFR (test code = eGFR) 9 [place] 264282-07-17 20:10:00 Test Item Value Reference Range Interpretation Comments WBC (test code = WBC) 4.3 3.7-10.4 [place] 264282-07-17 20:10:00 Test Item Value Reference Range Interpretation Comments RBC (test code = RBC) 2.17 4.70-6.10 [place] 264282-07-17 20:10:00 Test Item Value Reference Range Interpretation Comments Hgb (test code = Hgb) 7.7 14.0-18.0 [place] 264282-07-17 20:10:00 Test Item Value Reference Range Interpretation Comments Hct (test code = Hct) 22.9 42.0-54.0 [place] 264282-07-17 20:10:00 Test Item Value Reference Range Interpretation Comments MCV (test code = MCV) 105.9 80.0-94.0 [facility]XfzfxedZRHVGICUAE1732-09-97 20:10:00 Test Item Value Reference Range Interpretation Comments MCH (test code = MCH) 35.4 pg 27.0-31.0 [facility]2022-07-17 20:10:00 Test Item Value Reference Range Interpretation Comments Globulin (test code = Globulin) 3.2 2.7-4.2 [place] 264282-07-17 20:10:00 Test Item Value Reference Range Interpretation Comments MCHC (test code = MCHC) 33.4 32.0-36.0 [facility] HospitalDspoextEVVIXTBDFM2056-19-25 20:10:00 Test Item Value Reference Range Interpretation Comments RDW (test code = RDW) 23.6 11.5-14.5 [facility] HospitalPmmxmhcEABUSPOWAR7524-38-85 20:10:00 Test Item Value Reference Range Interpretation Comments Platelet (test code = Platelet) 146 133-450 [facility] HospitalQimlmjvBZRQALFPDJ1516-35-74 20:10:00 Test Item Value Reference Range Interpretation Comments MPV (test code = MPV) 8.0 7.4-10.4 [facility] HospitalPzfhoyoHVTQTLCVYK7627-95-70 20:10:00 Test Item Value Reference Range Interpretation Comments Plt Morph (test code = Normal (12/14/21 3:10 Plt Morph) PM) [facility] HospitalHsfzllzDZAMOYNALQ8969-28-74 20:10:00 Test Item Value Reference Range Interpretation Comments Segs (test code = Segs) 67.4 45.0-75.0 [facility] HospitalVplgpnqTCQQEZFPFS3069-59-39 20:10:00 Test Item Value Reference Range Interpretation Comments Lymphocytes (test code = Lymphocytes) 12.8 20.0-40.0 [place] 264282-07-17 20:10:00 Test Item Value Reference Range Interpretation Comments Monocytes (test code = Monocytes) 15.1 2.0-12.0 [place] 264282-07-17 20:10:00 Test Item Value Reference Range Interpretation Comments Eosinophils (test code = 4.1 See_Comment [A utomated message] The Eosinophils) system which ge nerated this result tra nsmitted reference range : <=4.0. The reference r samantha was not used to int erpret this result as normal/abnormal . [place] [address]-07-17 20:10:00 Test Item Value Reference Range Interpretation Comments Basophils (test code = 0.6 See_Comment [Aut omated message] The Basophils) system which ge nerated this result tra nsmitted reference range : <=1.0. The reference r samantha was not used to int erpret this result as normal/abnormal . [facility]2022-07-17 20:10:00 Test Item Value Reference Range Interpretation Comments A/G Ratio (test code = A/G Ratio) 0.8 1 0.7-1.6 [place] [address]-07-17 20:10:00 Test Item Value Reference Range Interpretation Comments Neutrophils # (test code = Neutrophils 2.9 1.5-8.1 #) [place] [address]-07-17 20:10:00 Test Item Value Reference Range Interpretation Comments Lymphocytes # (test code = Lymphocytes 0.5 1.0-5.5 #) [place] [address]-07-17 20:10:00 Test Item Value Reference Range Interpretation Comments Monocytes # (test code 0.6 See_Comment [Aut omated message] The = Monocytes #) system which generated this result tra nsmitted reference range : <=0.8. The reference r samantha was not used to int erpret this result as normal/abnormal . [place] [address]-07-17 20:10:00 Test Item Value Reference Range Interpretation Comments Eosinophils # (test code 0.2 See_Comment [A utomated message] The = Eosinophils #) system whic h generated this result tra nsmitted reference range : <=0.5. The reference r samantha was not used to int erpret this result as normal/abnormal . [place] [address]-07-17 20:10:00 Test Item Value Reference Range Interpretation Comments Anisocyte (test code = 1+ *ABN*(12/14/21 Anisocyte) 3:10 PM) [facility]YelrjfvIKOTCPACBG4047-18-14 20:10:00 Test Item Value Reference Range Interpretation Comments Macrocyte (test code = 1+ *ABN*(12/14/21 Macrocyte) 3:10 PM) [facility]AVBXTL7193[facility] 20:10:00 Test Item Value Reference Range Interpretation Comments Coronavirus (COVID-19) Detected MANUEL (test code = 4*ABN*(12/14/21 3:10 Coronavirus (COVID-19) PM) MANUEL) [facility] [id number] 20:10:00 Test Item Value Reference Range Interpretation Comments eGFR (test code = eGFR) 9 [facility] HospitalFprdtfrDFOFGBTILR4878-80-87 20:10:00 Test Item Value Reference Range Interpretation Comments WBC (test code = WBC) 4.3 3.7-10.4 [facility] HospitalDsdhfccLRXMEBGWHW3912-55-80 20:10:00 Test Item Value Reference Range Interpretation Comments RBC (test code = RBC) 2.17 4.70-6.10 [facility] HospitalCyzddvjTSVMIZMKRH0795-92-12 20:10:00 Test Item Value Reference Range Interpretation Comments Hgb (test code = Hgb) 7.7 14.0-18.0 [facility] HospitalXijhuviHEIDTBMHPN5977-85-45 20:10:00 Test Item Value Reference Range Interpretation Comments Hct (test code = Hct) 22.9 42.0-54.0 [facility] HospitalWmniwzrCVTMDLEWGZ8430-27-54 20:10:00 Test Item Value Reference Range Interpretation Comments MCV (test code = MCV) 105.9 80.0-94.0 [facility] HospitalYufzvxpNEABZTECAC3123-69-34 20:10:00 Test Item Value Reference Range Interpretation Comments MCH (test code = MCH) 35.4 pg 27.0-31.0 [facility] HospitalBmalojxKSKJQZLIZQ8626-10-49 20:10:00 Test Item Value Reference Range Interpretation Comments MCHC (test code = MCHC) 33.4 32.0-36.0 [place] 264282-07-17 20:10:00 Test Item Value Reference Range Interpretation Comments RDW (test code = RDW) 23.6 11.5-14.5 [facility] HospitalExbfpweWEHBUBLZGM7368-46-15 20:10:00 Test Item Value Reference Range Interpretation Comments Platelet (test code = Platelet) 146 133-450 [place] 264282-07-17 20:10:00 Test Item Value Reference Range Interpretation Comments MPV (test code = MPV) 8.0 7.4-10.4 [place] 264282-07-17 20:10:00 Test Item Value Reference Range Interpretation Comments Plt Morph (test code = Normal (12/14/21 3:10 Plt Morph) PM) [place] 264282-07-17 20:10:00 Test Item Value Reference Range Interpretation Comments Segs (test code = Segs) 67.4 45.0-75.0 [place] 264282-07-17 20:10:00 Test Item Value Reference Range Interpretation Comments Lymphocytes (test code = Lymphocytes) 12.8 20.0-40.0 [place] 264282-07-17 20:10:00 Test Item Value Reference Range Interpretation Comments Monocytes (test code = Monocytes) 15.1 2.0-12.0 [place] 264282-07-17 20:10:00 Test Item Value Reference Range Interpretation Comments Eosinophils (test code = 4.1 See_Comment [A utomated message] The Eosinophils) system which ge nerated this result tra nsmitted reference range : <=4.0. The reference r samantha was not used to int erpret this result as normal/abnormal . [place] 264282-07-17 20:10:00 Test Item Value Reference Range Interpretation Comments Basophils (test code = 0.6 See_Comment [Aut omated message] The Basophils) system which ge nerated this result tra nsmitted reference range : <=1.0. The reference r samantha was not used to int erpret this result as normal/abnormal . [place] 264282-07-17 20:10:00 Test Item Value Reference Range Interpretation Comments Neutrophils # (test code = Neutrophils 2.9 1.5-8.1 #) [facility] HospitalNpibzjaGNBYMMYUVY9065-08-62 20:10:00 Test Item Value Reference Range Interpretation Comments Lymphocytes # (test code = Lymphocytes 0.5 1.0-5.5 #) [place] 264282-07-17 20:10:00 Test Item Value Reference Range Interpretation Comments Monocytes # (test code 0.6 See_Comment [Aut omated message] The = Monocytes #) system which generated this result tra nsmitted reference range : <=0.8. The reference r samantha was not used to int erpret this result as normal/abnormal . [facility]RgszxqeKMJKLWZVRG7242-49-14 20:10:00 Test Item Value Reference Range Interpretation Comments Eosinophils # (test code 0.2 See_Comment [A utomated message] The = Eosinophils #) system whic h generated this result tra nsmitted reference range : <=0.5. The reference r samantha was not used to int erpret this result as normal/abnormal . [facility] MichiganZsgopgsHETJRTRMSH0224-97-07 20:10:00 Test Item Value Reference Range Interpretation Comments Anisocyte (test code = 1+ *ABN*(12/14/21 Anisocyte) 3:10 PM) [facility] HospitalNbviicgUXXRYJFDJC2893-12-78 20:10:00 Test Item Value Reference Range Interpretation Comments Macrocyte (test code = 1+ *ABN*(12/14/21 Macrocyte) 3:10 PM) [facility]evilleGrxvjccKYTROCUATL7268-42-05 20:10:00 Test Item Value Reference Range Interpretation Comments Coronavirus (COVID-19) Detected MANUEL (test code = 4*ABN*(12/14/21 3:10 Coronavirus (COVID-19) PM) MANUEL) [facility]ARD[facility] MMXJTLI4736-06-26 20:10:00 Test Item Value Reference Range Interpretation Comments HS Troponin I Baseline (test code = HS 340 Troponin I Baseline) [facility] [id number] 20:10:00 Test Item Value Reference Range Interpretation Comments Glucose Lvl (test code = Glucose Lvl) 60 70-99 [facility] [id number] 20:10:00 Test Item Value Reference Range Interpretation Comments BUN (test code = BUN) 35 7-22 [facility] [id number] 20:10:00 Test Item Value Reference Range Interpretation Comments Creatinine Lvl (test code = Creatinine 6.10 0.50-1.40 Lvl) [facility] [id number] 20:10:00 Test Item Value Reference Range Interpretation Comments Sodium Lvl (test code = Sodium Lvl) 139 135-145 [facility] [place] [address]398CGIQT8150-07-94 20:10:00 Test Item Value Reference Range Interpretation Comments Potassium Lvl (test code = Potassium 3.1 3.5-5.1 Lvl) [place] [address]-07-17 20:10:00 Test Item Value Reference Range Interpretation Comments Chloride Lvl (test code = Chloride Lvl) 105 95-109 [place] [address]-07-17 20:10:00 Test Item Value Reference Range Interpretation Comments CO2 (test code = CO2) 28 24-32 [place] [address]-07-17 20:10:00 Test Item Value Reference Range Interpretation Comments Calcium Lvl (test code = Calcium Lvl) 8.1 8.5-10.5 [place] [address]-07-17 20:10:00 Test Item Value Reference Range Interpretation Comments Total Protein (test code = Total 5.8 6.4-8.4 Protein) [place] 412362-07-17 20:10:00 Test Item Value Reference Range Interpretation Comments Albumin Lvl (test code = Albumin Lvl) 2.6 3.5-5.0 [place] 412362-07-17 20:10:00 Test Item Value Reference Range Interpretation Comments ALT (test code = ALT) 74 See_Comment [Auto mated message] The system which ge nerated this result transmit swathi reference range : <=65. The reference range was not used to interpr et this result as deny l/abnormal. [place] [address]-07-17 20:10:00 Test Item Value Reference Range Interpretation Comments AST (test code = AST) 117 See_Comment [Auto mated message] The system which ge nerated this result transmit swathi reference range : <=37. The reference range was not used to interpr et this result as deny l/abnormal. [facility] [id number] 20:10:00 Test Item Value Reference Range Interpretation Comments Alk Phos (test code = Alk Phos) 241 39-136 [place] [address]-07-17 20:10:00 Test Item Value Reference Range Interpretation Comments Bili Total (test code = Bili Total) 0.8 0.2-1.3 [place] [address]-07-17 20:10:00 Test Item Value Reference Range Interpretation Comments AGAP (test code = AGAP) 9.1 10.0-20.0 [facility]2022-07-17 20:10:00 Test Item Value Reference Range Interpretation Comments B/C Ratio (test code = B/C Ratio) 6 1 6-25 [facility]2022-07-17 20:10:00 Test Item Value Reference Range Interpretation Comments Globulin (test code = Globulin) 3.2 2.7-4.2 [facility]2022-07-17 20:10:00 Test Item Value Reference Range Interpretation Comments A/G Ratio (test code = A/G Ratio) 0.8 1 0.7-1.6 [facility]2022-07-17 20:10:00 Test Item Value Reference Range Interpretation Comments eGFR (test code = eGFR) 9 [facility] HospitalXkwfluhLTFZZJHLFS3491-17-53 20:10:00 Test Item Value Reference Range Interpretation Comments WBC (test code = WBC) 4.3 3.7-10.4 [facility] HospitalNogyrknTWAMLUSRXT1104-45-06 20:10:00 Test Item Value Reference Range Interpretation Comments RBC (test code = RBC) 2.17 4.70-6.10 [facility] HospitalNpmgihsCKRPUOENEZ6172-58-50 20:10:00 Test Item Value Reference Range Interpretation Comments Hgb (test code = Hgb) 7.7 14.0-18.0 [facility] HospitalWyugkuuLFPZFUKGZB2231-67-14 20:10:00 Test Item Value Reference Range Interpretation Comments Hct (test code = Hct) 22.9 42.0-54.0 [place] 264282-07-17 20:10:00 Test Item Value Reference Range Interpretation Comments MCV (test code = MCV) 105.9 80.0-94.0 [place] 264282-07-17 20:10:00 Test Item Value Reference Range Interpretation Comments MCH (test code = MCH) 35.4 pg 27.0-31.0 [place] 264282-07-17 20:10:00 Test Item Value Reference Range Interpretation Comments MCHC (test code = MCHC) 33.4 32.0-36.0 [facility] HospitalLidnubvILWWARBGQO4812-45-41 20:10:00 Test Item Value Reference Range Interpretation Comments RDW (test code = RDW) 23.6 11.5-14.5 [place] 264282-07-17 20:10:00 Test Item Value Reference Range Interpretation Comments Platelet (test code = Platelet) 146 133-450 [facility] HospitalGzmaqocZHGPUENILS5588-18-42 20:10:00 Test Item Value Reference Range Interpretation Comments MPV (test code = MPV) 8.0 7.4-10.4 [facility] HospitalVauwiqoDHPEULSOBM6060-45-13 20:10:00 Test Item Value Reference Range Interpretation Comments Plt Morph (test code = Normal (12/14/21 3:10 Plt Morph) PM) [facility] HospitalVnipsnaONJWDFXMPC0388-94-73 20:10:00 Test Item Value Reference Range Interpretation Comments Segs (test code = Segs) 67.4 45.0-75.0 [place] 264282-07-17 20:10:00 Test Item Value Reference Range Interpretation Comments Lymphocytes (test code = Lymphocytes) 12.8 20.0-40.0 [place] 264282-07-17 20:10:00 Test Item Value Reference Range Interpretation Comments Monocytes (test code = Monocytes) 15.1 2.0-12.0 [place] 264282-07-17 20:10:00 Test Item Value Reference Range Interpretation Comments Eosinophils (test code = 4.1 See_Comment [A utomated message] The Eosinophils) system which ge nerated this result tra nsmitted reference range : <=4.0. The reference r samantha was not used to int erpret this result as normal/abnormal . [facility] HospitalRadjzmpVAJBIRNXXE0445-77-40 20:10:00 Test Item Value Reference Range Interpretation Comments Basophils (test code = 0.6 See_Comment [Aut omated message] The Basophils) system which ge nerated this result tra nsmitted reference range : <=1.0. The reference r samantha was not used to int erpret this result as normal/abnormal . [facility] HospitalWrnqpunJUTDVPZUZA7345-47-46 20:10:00 Test Item Value Reference Range Interpretation Comments Neutrophils # (test code = Neutrophils 2.9 1.5-8.1 #) [place] 264282-07-17 20:10:00 Test Item Value Reference Range Interpretation Comments Lymphocytes # (test code = Lymphocytes 0.5 1.0-5.5 #) [facility] HospitalNjsyundSHNUQIXTJZ2523-54-68 20:10:00 Test Item Value Reference Range Interpretation Comments Monocytes # (test code 0.6 See_Comment [Aut omated message] The = Monocytes #) system which generated this result tra nsmitted reference range : <=0.8. The reference r samantha was not used to int erpret this result as normal/abnormal . [facility] HospitalJvuvxxcWQZTWQLYNK2464-35-73 20:10:00 Test Item Value Reference Range Interpretation Comments Eosinophils # (test code 0.2 See_Comment [A utomated message] The = Eosinophils #) system whic h generated this result tra nsmitted reference range : <=0.5. The reference r samantha was not used to int erpret this result as normal/abnormal . [facility]YlllilfUEDNDWOUWM3517-04-16 20:10:00 Test Item Value Reference Range Interpretation Comments Anisocyte (test code = 1+ *ABN*(12/14/21 Anisocyte) 3:10 PM) [facility] HospitalYtnoybgGSEDKHNWND2969-73-75 20:10:00 Test Item Value Reference Range Interpretation Comments Macrocyte (test code = 1+ *ABN*(12/14/21 Macrocyte) 3:10 PM) [facility]evillePczozvwJHAWRQCAVI2768-50-61 20:10:00 Test Item Value Reference Range Interpretation Comments Coronavirus (COVID-19) Detected MANUEL (test code = 4*ABN*(12/14/21 3:10 Coronavirus (COVID-19) PM) MANUEL) [facility]evilleCARDIAC [id number] 20:10:00 Test Item Value Reference Range Interpretation Comments HS Troponin I Baseline (test code = HS 340 Troponin I Baseline) [facility] [id number] 20:10:00 Test Item Value Reference Range Interpretation Comments Glucose Lvl (test code = Glucose Lvl) 60 70-99 [facility] [id number] 20:10:00 Test Item Value Reference Range Interpretation Comments BUN (test code = BUN) 35 7-22 [facility] [id number] 20:10:00 Test Item Value Reference Range Interpretation Comments Creatinine Lvl (test code = Creatinine 6.10 0.50-1.40 Lvl) [facility] [id number] 20:10:00 Test Item Value Reference Range Interpretation Comments Sodium Lvl (test code = Sodium Lvl) 139 135-145 [place] 412362-07-17 20:10:00 Test Item Value Reference Range Interpretation Comments Potassium Lvl (test code = Potassium 3.1 3.5-5.1 Lvl) [place] 412362-07-17 20:10:00 Test Item Value Reference Range Interpretation Comments Chloride Lvl (test code = Chloride Lvl) 105 95-109 [place] 412362-07-17 20:10:00 Test Item Value Reference Range Interpretation Comments CO2 (test code = CO2) 28 24-32 [place] 412362-07-17 20:10:00 Test Item Value Reference Range Interpretation Comments Calcium Lvl (test code = Calcium Lvl) 8.1 8.5-10.5 [place] 412362-07-17 20:10:00 Test Item Value Reference Range Interpretation Comments Total Protein (test code = Total 5.8 6.4-8.4 Protein) [place] 412362-07-17 20:10:00 Test Item Value Reference Range Interpretation Comments Albumin Lvl (test code = Albumin Lvl) 2.6 3.5-5.0 [place] 412362-07-17 20:10:00 Test Item Value Reference Range Interpretation Comments ALT (test code = ALT) 74 See_Comment [Auto mated message] The system which ge nerated this result transmit swathi reference range : <=65. The reference range was not used to interpr et this result as deny l/abnormal. [place] 412362-07-17 20:10:00 Test Item Value Reference Range Interpretation Comments AST (test code = AST) 117 See_Comment [Auto mated message] The system which ge nerated this result transmit swathi reference range : <=37. The reference range was not used to interpr et this result as deny l/abnormal. [place] 412362-07-17 20:10:00 Test Item Value Reference Range Interpretation Comments Alk Phos (test code = Alk Phos) 241 39-136 [place] 412362-07-17 20:10:00 Test Item Value Reference Range Interpretation Comments Bili Total (test code = Bili Total) 0.8 0.2-1.3 [place] [address]-07-17 20:10:00 Test Item Value Reference Range Interpretation Comments AGAP (test code = AGAP) 9.1 10.0-20.0 [facility] [id number] 20:10:00 Test Item Value Reference Range Interpretation Comments B/C Ratio (test code = B/C Ratio) 6 1 6-25 [place] 412362-07-17 20:10:00 Test Item Value Reference Range Interpretation Comments Globulin (test code = Globulin) 3.2 2.7-4.2 [place] 412362-07-17 20:10:00 Test Item Value Reference Range Interpretation Comments A/G Ratio (test code = A/G Ratio) 0.8 1 0.7-1.6 [place] 412362-07-17 20:10:00 Test Item Value Reference Range Interpretation Comments eGFR (test code = eGFR) 9 [facility] HospitalDzivexpYHXGIDYSNJ6314-42-74 20:10:00 Test Item Value Reference Range Interpretation Comments WBC (test code = WBC) 4.3 3.7-10.4 [place] 264282-07-17 20:10:00 Test Item Value Reference Range Interpretation Comments RBC (test code = RBC) 2.17 4.70-6.10 [place] 264282-07-17 20:10:00 Test Item Value Reference Range Interpretation Comments Hgb (test code = Hgb) 7.7 14.0-18.0 [place] 264282-07-17 20:10:00 Test Item Value Reference Range Interpretation Comments Hct (test code = Hct) 22.9 42.0-54.0 [place] 264282-07-17 20:10:00 Test Item Value Reference Range Interpretation Comments MCV (test code = MCV) 105.9 80.0-94.0 [place] 264282-07-17 20:10:00 Test Item Value Reference Range Interpretation Comments MCH (test code = MCH) 35.4 pg 27.0-31.0 [place] 264282-07-17 20:10:00 Test Item Value Reference Range Interpretation Comments MCHC (test code = MCHC) 33.4 32.0-36.0 [place] 264282-07-17 20:10:00 Test Item Value Reference Range Interpretation Comments RDW (test code = RDW) 23.6 11.5-14.5 [facility] HospitalMajacvbMTABXBNEYN9909-10-16 20:10:00 Test Item Value Reference Range Interpretation Comments Platelet (test code = Platelet) 146 133-450 [facility] HospitalGvjwqgdQJCMFWYJDW8508-46-48 20:10:00 Test Item Value Reference Range Interpretation Comments MPV (test code = MPV) 8.0 7.4-10.4 [facility] HospitalKwazoulOMJZUPSQXE2981-80-81 20:10:00 Test Item Value Reference Range Interpretation Comments Plt Morph (test code = Normal (12/14/21 3:10 Plt Morph) PM) [facility] HospitalClomsfwSGJVDGKMSS3125-88-88 20:10:00 Test Item Value Reference Range Interpretation Comments Segs (test code = Segs) 67.4 45.0-75.0 [place] 264282-07-17 20:10:00 Test Item Value Reference Range Interpretation Comments Lymphocytes (test code = Lymphocytes) 12.8 20.0-40.0 [facility] HospitalLtkezfvWVHYLZESEW2610-38-00 20:10:00 Test Item Value Reference Range Interpretation Comments Monocytes (test code = Monocytes) 15.1 2.0-12.0 [facility] HospitalNuvawhfZMIRDWJBCJ1905-42-31 20:10:00 Test Item Value Reference Range Interpretation Comments Eosinophils (test code = 4.1 See_Comment [A utomated message] The Eosinophils) system which ge nerated this result tra nsmitted reference range : <=4.0. The reference r samantha was not used to int erpret this result as normal/abnormal . [facility] HospitalCvsdjqwUSGRSUUUPW7749-72-28 20:10:00 Test Item Value Reference Range Interpretation Comments Basophils (test code = 0.6 See_Comment [Aut omated message] The Basophils) system which ge nerated this result tra nsmitted reference range : <=1.0. The reference r samantha was not used to int erpret this result as normal/abnormal . [facility] HospitalGcdzxqlPFBRCPINKO5196-55-60 20:10:00 Test Item Value Reference Range Interpretation Comments Neutrophils # (test code = Neutrophils 2.9 1.5-8.1 #) [facility] HospitalYjyvvzxFVVIEBOSCW1635-37-59 20:10:00 Test Item Value Reference Range Interpretation Comments Lymphocytes # (test code = Lymphocytes 0.5 1.0-5.5 #) [place] 264282-07-17 20:10:00 Test Item Value Reference Range Interpretation Comments Monocytes # (test code 0.6 See_Comment [Aut omated message] The = Monocytes #) system which generated this result tra nsmitted reference range : <=0.8. The reference r samantha was not used to int erpret this result as normal/abnormal . [facility] HospitalBxufrgtHYHLUVNRVZ8386-34-50 20:10:00 Test Item Value Reference Range Interpretation Comments Eosinophils # (test code 0.2 See_Comment [A utomated message] The = Eosinophils #) system whic h generated this result tra nsmitted reference range : <=0.5. The reference r samantha was not used to int erpret this result as normal/abnormal . [facility] MichiganDodlgprDVBZPHFWOV8575-84-47 20:10:00 Test Item Value Reference Range Interpretation Comments Anisocyte (test code = 1+ *ABN*(12/14/21 Anisocyte) 3:10 PM) [facility] HospitalOqlopupTOMKBKTJNW7430-04-44 20:10:00 Test Item Value Reference Range Interpretation Comments Macrocyte (test code = 1+ *ABN*(12/14/21 Macrocyte) 3:10 PM) [facility]evilleVpngnuvSYUQAXCEGP9955-96-81 20:10:00 Test Item Value Reference Range Interpretation Comments Coronavirus (COVID-19) Detected MANUEL (test code = 4*ABN*(12/14/21 3:10 Coronavirus (COVID-19) PM) MANUEL) [facility]CARD[facility] DWYNFDL0265-92-73 20:10:00 Test Item Value Reference Range Interpretation Comments HS Troponin I Baseline (test code = HS 340 Troponin I Baseline) [facility]evilleCHE[facility] ABSMM9108-07-73 20:10:00 Test Item Value Reference Range Interpretation Comments Glucose Lvl (test code = Glucose Lvl) 60 70-99 [facility] [id number] 20:10:00 Test Item Value Reference Range Interpretation Comments BUN (test code = BUN) 35 7-22 [facility] [id number] 20:10:00 Test Item Value Reference Range Interpretation Comments Creatinine Lvl (test code = Creatinine 6.10 0.50-1.40 Lvl) [facility] [id number] 20:10:00 Test Item Value Reference Range Interpretation Comments Sodium Lvl (test code = Sodium Lvl) 139 135-145 [place] 412362-07-17 20:10:00 Test Item Value Reference Range Interpretation Comments Potassium Lvl (test code = Potassium 3.1 3.5-5.1 Lvl) [place] 412362-07-17 20:10:00 Test Item Value Reference Range Interpretation Comments Chloride Lvl (test code = Chloride Lvl) 105 95-109 [place] 412362-07-17 20:10:00 Test Item Value Reference Range Interpretation Comments CO2 (test code = CO2) 28 24-32 [place] 412362-07-17 20:10:00 Test Item Value Reference Range Interpretation Comments Calcium Lvl (test code = Calcium Lvl) 8.1 8.5-10.5 [place] 412362-07-17 20:10:00 Test Item Value Reference Range Interpretation Comments Total Protein (test code = Total 5.8 6.4-8.4 Protein) [place] 412362-07-17 20:10:00 Test Item Value Reference Range Interpretation Comments Albumin Lvl (test code = Albumin Lvl) 2.6 3.5-5.0 [place] 412362-07-17 20:10:00 Test Item Value Reference Range Interpretation Comments ALT (test code = ALT) 74 See_Comment [Auto mated message] The system which ge nerated this result transmit swathi reference range : <=65. The reference range was not used to interpr et this result as deny l/abnormal. [facility] [id number] 20:10:00 Test Item Value Reference Range Interpretation Comments AST (test code = AST) 117 See_Comment [Auto mated message] The system which ge nerated this result transmit swathi reference range : <=37. The reference range was not used to interpr et this result as deny l/abnormal. [facility]landZim[facility] [id number] 20:10:00 Test Item Value Reference Range Interpretation Comments Alk Phos (test code = Alk Phos) 241 39-136 [place] 412362-07-17 20:10:00 Test Item Value Reference Range Interpretation Comments Bili Total (test code = Bili Total) 0.8 0.2-1.3 [facility]ENTERQSQDL1005-74-04 20:10:00 Test Item Value Reference Range Interpretation Comments AGAP (test code = AGAP) 9.1 10.0-20.0 [place] 412362-07-17 20:10:00 Test Item Value Reference Range Interpretation Comments B/C Ratio (test code = B/C Ratio) 6 1 6-25 [place] 412362-07-17 20:10:00 Test Item Value Reference Range Interpretation Comments Globulin (test code = Globulin) 3.2 2.7-4.2 [place] 412362-07-17 20:10:00 Test Item Value Reference Range Interpretation Comments A/G Ratio (test code = A/G Ratio) 0.8 1 0.7-1.6 [place] 412362-07-17 20:10:00 Test Item Value Reference Range Interpretation Comments eGFR (test code = eGFR) 9 [facility]JlqrkesIBEKNLEDPK9190-72-76 20:10:00 Test Item Value Reference Range Interpretation Comments WBC (test code = WBC) 4.3 3.7-10.4 [place] 264282-07-17 20:10:00 Test Item Value Reference Range Interpretation Comments RBC (test code = RBC) 2.17 4.70-6.10 [place] 264282-07-17 20:10:00 Test Item Value Reference Range Interpretation Comments Hgb (test code = Hgb) 7.7 14.0-18.0 [place] 264282-07-17 20:10:00 Test Item Value Reference Range Interpretation Comments Hct (test code = Hct) 22.9 42.0-54.0 [place] [address]-07-17 20:10:00 Test Item Value Reference Range Interpretation Comments MCV (test code = MCV) 105.9 80.0-94.0 [place] 264282-07-17 20:10:00 Test Item Value Reference Range Interpretation Comments MCH (test code = MCH) 35.4 pg 27.0-31.0 [place] 264282-07-17 20:10:00 Test Item Value Reference Range Interpretation Comments MCHC (test code = MCHC) 33.4 32.0-36.0 [place] 264282-07-17 20:10:00 Test Item Value Reference Range Interpretation Comments RDW (test code = RDW) 23.6 11.5-14.5 [place] 264282-07-17 20:10:00 Test Item Value Reference Range Interpretation Comments Platelet (test code = Platelet) 146 133-450 [place] 264282-07-17 20:10:00 Test Item Value Reference Range Interpretation Comments MPV (test code = MPV) 8.0 7.4-10.4 [place] 264282-07-17 20:10:00 Test Item Value Reference Range Interpretation Comments Plt Morph (test code = Normal (12/14/21 3:10 Plt Morph) PM) [facility] HospitalFozmeqyVUEOYMJGBI0251-78-30 20:10:00 Test Item Value Reference Range Interpretation Comments Segs (test code = Segs) 67.4 45.0-75.0 [place] 264282-07-17 20:10:00 Test Item Value Reference Range Interpretation Comments Lymphocytes (test code = Lymphocytes) 12.8 20.0-40.0 [place] 264282-07-17 20:10:00 Test Item Value Reference Range Interpretation Comments Monocytes (test code = Monocytes) 15.1 2.0-12.0 [place] 264282-07-17 20:10:00 Test Item Value Reference Range Interpretation Comments Eosinophils (test code = 4.1 See_Comment [A utomated message] The Eosinophils) system which ge nerated this result tra nsmitted reference range : <=4.0. The reference r samantha was not used to int erpret this result as normal/abnormal . [facility] HospitalJzwentpIKKESPCWUK1266-17-20 20:10:00 Test Item Value Reference Range Interpretation Comments Basophils (test code = 0.6 See_Comment [Aut omated message] The Basophils) system which ge nerated this result tra nsmitted reference range : <=1.0. The reference r samantha was not used to int erpret this result as normal/abnormal . [place] 264282-07-17 20:10:00 Test Item Value Reference Range Interpretation Comments Neutrophils # (test code = Neutrophils 2.9 1.5-8.1 #) [place] 264282-07-17 20:10:00 Test Item Value Reference Range Interpretation Comments Lymphocytes # (test code = Lymphocytes 0.5 1.0-5.5 #) [facility]MgmyvrxCHDTWQRHYJ5956-72-56 20:10:00 Test Item Value Reference Range Interpretation Comments Monocytes # (test code 0.6 See_Comment [Aut omated message] The = Monocytes #) system which generated this result tra nsmitted reference range : <=0.8. The reference r samantha was not used to int erpret this result as normal/abnormal . [facility] HospitalQbqkvjfFMJHLDAYCT8635-69-30 20:10:00 Test Item Value Reference Range Interpretation Comments Eosinophils # (test code 0.2 See_Comment [A utomated message] The = Eosinophils #) system whic h generated this result tra nsmitted reference range : <=0.5. The reference r samantha was not used to int erpret this result as normal/abnormal . [facility] HospitalRqlosjrLWNDCDYJHF8949-87-28 20:10:00 Test Item Value Reference Range Interpretation Comments Anisocyte (test code = 1+ *ABN*(12/14/21 Anisocyte) 3:10 PM) [facility] HospitalJvxdmswROXCGPLDWV3134-02-51 20:10:00 Test Item Value Reference Range Interpretation Comments Macrocyte (test code = 1+ *ABN*(12/14/21 Macrocyte) 3:10 PM) [facility]kwxAZLXDIVMVR6360-50-16 20:10:00 Test Item Value Reference Range Interpretation Comments Coronavirus (COVID-19) Detected MANUEL (test code = 4*ABN*(12/14/21 3:10 Coronavirus (COVID-19) PM) MANUEL) [facility]ARD[facility] [id number] 20:10:00 Test Item Value Reference Range Interpretation Comments HS Troponin I Baseline (test code = HS 340 Troponin I Baseline) [facility] KMDZF0184-04-17 20:10:00 Test Item Value Reference Range Interpretation Comments Glucose Lvl (test code = Glucose Lvl) 60 70-99 [facility] [id number] 20:10:00 Test Item Value Reference Range Interpretation Comments BUN (test code = BUN) 35 7-22 [facility] [id number] 20:10:00 Test Item Value Reference Range Interpretation Comments Creatinine Lvl (test code = Creatinine 6.10 0.50-1.40 Lvl) [facility] [id number] 20:10:00 Test Item Value Reference Range Interpretation Comments Sodium Lvl (test code = Sodium Lvl) 139 135-145 [facility] [id number] 20:10:00 Test Item Value Reference Range Interpretation Comments Potassium Lvl (test code = Potassium 3.1 3.5-5.1 Lvl) [place] 412362-07-17 20:10:00 Test Item Value Reference Range Interpretation Comments Chloride Lvl (test code = Chloride Lvl) 105 95-109 [facility] [id number] 20:10:00 Test Item Value Reference Range Interpretation Comments CO2 (test code = CO2) 28 24-32 [facility]Navisc[place]ISA[place] [address]KLFMT0320-15-41 20:10:00 Test Item Value Reference Range Interpretation Comments Calcium Lvl (test code = Calcium Lvl) 8.1 8.5-10.5 [place] 412362-07-17 20:10:00 Test Item Value Reference Range Interpretation Comments Total Protein (test code = Total 5.8 6.4-8.4 Protein) [place] 412362-07-17 20:10:00 Test Item Value Reference Range Interpretation Comments Albumin Lvl (test code = Albumin Lvl) 2.6 3.5-5.0 [facility] [id number] 20:10:00 Test Item Value Reference Range Interpretation Comments ALT (test code = ALT) 74 See_Comment [Auto mated message] The system which ge nerated this result transmit swathi reference range : <=65. The reference range was not used to interpr et this result as deny l/abnormal. [facility] [id number] 20:10:00 Test Item Value Reference Range Interpretation Comments AST (test code = AST) 117 See_Comment [Auto mated message] The system which ge nerated this result transmit swathi reference range : <=37. The reference range was not used to interpr et this result as deny l/abnormal. [facility] [id number] 20:10:00 Test Item Value Reference Range Interpretation Comments Alk Phos (test code = Alk Phos) 241 39-136 [facility] [id number] 20:10:00 Test Item Value Reference Range Interpretation Comments Bili Total (test code = Bili Total) 0.8 0.2-1.3 [place] 412362-07-17 20:10:00 Test Item Value Reference Range Interpretation Comments AGAP (test code = AGAP) 9.1 10.0-20.0 [place] 412362-07-17 20:10:00 Test Item Value Reference Range Interpretation Comments B/C Ratio (test code = B/C Ratio) 6 1 6-25 [place] 412362-07-17 20:10:00 Test Item Value Reference Range Interpretation Comments Globulin (test code = Globulin) 3.2 2.7-4.2 [place] 412362-07-17 20:10:00 Test Item Value Reference Range Interpretation Comments A/G Ratio (test code = A/G Ratio) 0.8 1 0.7-1.6 [place] 412362-07-17 20:10:00 Test Item Value Reference Range Interpretation Comments eGFR (test code = eGFR) 9 [facility] HospitalEihrtycQUNDKBMNMD6976-00-44 20:10:00 Test Item Value Reference Range Interpretation Comments WBC (test code = WBC) 4.3 3.7-10.4 [place] 264282-07-17 20:10:00 Test Item Value Reference Range Interpretation Comments RBC (test code = RBC) 2.17 4.70-6.10 [place] 264282-07-17 20:10:00 Test Item Value Reference Range Interpretation Comments Hgb (test code = Hgb) 7.7 14.0-18.0 [place] 264282-07-17 20:10:00 Test Item Value Reference Range Interpretation Comments Hct (test code = Hct) 22.9 42.0-54.0 [place] 264282-07-17 20:10:00 Test Item Value Reference Range Interpretation Comments MCV (test code = MCV) 105.9 80.0-94.0 [place] 264282-07-17 20:10:00 Test Item Value Reference Range Interpretation Comments MCH (test code = MCH) 35.4 pg 27.0-31.0 [place] 264282-07-17 20:10:00 Test Item Value Reference Range Interpretation Comments MCHC (test code = MCHC) 33.4 32.0-36.0 [place] 264282-07-17 20:10:00 Test Item Value Reference Range Interpretation Comments RDW (test code = RDW) 23.6 11.5-14.5 [facility] HospitalTfpdfalXNNFBWHTWY0134-40-48 20:10:00 Test Item Value Reference Range Interpretation Comments Platelet (test code = Platelet) 146 133-450 [place] 264282-07-17 20:10:00 Test Item Value Reference Range Interpretation Comments MPV (test code = MPV) 8.0 7.4-10.4 [place] 264282-07-17 20:10:00 Test Item Value Reference Range Interpretation Comments Plt Morph (test code = Normal (12/14/21 3:10 Plt Morph) PM) [facility] HospitalRuppgxiMHPGIZJAOX7508-28-11 20:10:00 Test Item Value Reference Range Interpretation Comments Segs (test code = Segs) 67.4 45.0-75.0 [place] 264282-07-17 20:10:00 Test Item Value Reference Range Interpretation Comments Lymphocytes (test code = Lymphocytes) 12.8 20.0-40.0 [facility] HospitalCssamyqKKGULJUSLW8559-52-35 20:10:00 Test Item Value Reference Range Interpretation Comments Monocytes (test code = Monocytes) 15.1 2.0-12.0 [place] 264282-07-17 20:10:00 Test Item Value Reference Range Interpretation Comments Eosinophils (test code = 4.1 See_Comment [A utomated message] The Eosinophils) system which ge nerated this result tra nsmitted reference range : <=4.0. The reference r samantha was not used to int erpret this result as normal/abnormal . [place] 264282-07-17 20:10:00 Test Item Value Reference Range Interpretation Comments Basophils (test code = 0.6 See_Comment [Aut omated message] The Basophils) system which ge nerated this result tra nsmitted reference range : <=1.0. The reference r samantha was not used to int erpret this result as normal/abnormal . [facility] HospitalXmlmprpGIPKVKNOHJ2978-50-85 20:10:00 Test Item Value Reference Range Interpretation Comments Neutrophils # (test code = Neutrophils 2.9 1.5-8.1 #) [facility] HospitalItbslvmAYNHYHFONI9559-19-84 20:10:00 Test Item Value Reference Range Interpretation Comments Lymphocytes # (test code = Lymphocytes 0.5 1.0-5.5 #) [facility]evilleUvzdbssMYULOVIIEX7010-70-32 20:10:00 Test Item Value Reference Range Interpretation Comments Monocytes # (test code 0.6 See_Comment [Aut omated message] The = Monocytes #) system which generated this result tra nsmitted reference range : <=0.8. The reference r samantha was not used to int erpret this result as normal/abnormal . [facility] MichiganDyxsshoHNDLICVGXB8413-25-65 20:10:00 Test Item Value Reference Range Interpretation Comments Eosinophils # (test code 0.2 See_Comment [A utomated message] The = Eosinophils #) system whic h generated this result tra nsmitted reference range : <=0.5. The reference r samantha was not used to int erpret this result as normal/abnormal . [facility] HospitalHamampkVKOORXPTTR0043-80-59 20:10:00 Test Item Value Reference Range Interpretation Comments Anisocyte (test code = 1+ *ABN*(12/14/21 Anisocyte) 3:10 PM) [facility]evilleFfmdyejNGACVLTFJU5664-00-43 20:10:00 Test Item Value Reference Range Interpretation Comments Macrocyte (test code = 1+ *ABN*(12/14/21 Macrocyte) 3:10 PM) [facility]evilleYeyplvmRLCXTZSLNU5717-03-49 20:10:00 Test Item Value Reference Range Interpretation Comments Coronavirus (COVID-19) Detected MANUEL (test code = 4*ABN*(12/14/21 3:10 Coronavirus (COVID-19) PM) MANUEL) [facility]ARD[facility] [id number] 20:10:00 Test Item Value Reference Range Interpretation Comments HS Troponin I Baseline (test code = HS 340 Troponin I Baseline) [facility] [id number] 20:10:00 Test Item Value Reference Range Interpretation Comments Glucose Lvl (test code = Glucose Lvl) 60 70-99 [facility] [id number] 20:10:00 Test Item Value Reference Range Interpretation Comments BUN (test code = BUN) 35 7-22 [facility] [id number] 20:10:00 Test Item Value Reference Range Interpretation Comments Creatinine Lvl (test code = Creatinine 6.10 0.50-1.40 Lvl) [place] 412362-07-17 20:10:00 Test Item Value Reference Range Interpretation Comments Sodium Lvl (test code = Sodium Lvl) 139 135-145 [place] 412362-07-17 20:10:00 Test Item Value Reference Range Interpretation Comments Potassium Lvl (test code = Potassium 3.1 3.5-5.1 Lvl) [place] 412362-07-17 20:10:00 Test Item Value Reference Range Interpretation Comments Chloride Lvl (test code = Chloride Lvl) 105 95-109 [place] 412362-07-17 20:10:00 Test Item Value Reference Range Interpretation Comments CO2 (test code = CO2) 28 24-32 [place] 412362-07-17 20:10:00 Test Item Value Reference Range Interpretation Comments Calcium Lvl (test code = Calcium Lvl) 8.1 8.5-10.5 [place] 412362-07-17 20:10:00 Test Item Value Reference Range Interpretation Comments Total Protein (test code = Total 5.8 6.4-8.4 Protein) [place] 412362-07-17 20:10:00 Test Item Value Reference Range Interpretation Comments Albumin Lvl (test code = Albumin Lvl) 2.6 3.5-5.0 [place] 412362-07-17 20:10:00 Test Item Value Reference Range Interpretation Comments ALT (test code = ALT) 74 See_Comment [Auto mated message] The system which ge nerated this result transmit swathi reference range : <=65. The reference range was not used to interpr et this result as deny l/abnormal. [place] 412362-07-17 20:10:00 Test Item Value Reference Range Interpretation Comments AST (test code = AST) 117 See_Comment [Auto mated message] The system which ge nerated this result transmit swathi reference range : <=37. The reference range was not used to interpr et this result as deny l/abnormal. [place] 412362-07-17 20:10:00 Test Item Value Reference Range Interpretation Comments Alk Phos (test code = Alk Phos) 241 39-136 [place] 412362-07-17 20:10:00 Test Item Value Reference Range Interpretation Comments Bili Total (test code = Bili Total) 0.8 0.2-1.3 [facility] [id number] 20:10:00 Test Item Value Reference Range Interpretation Comments AGAP (test code = AGAP) 9.1 10.0-20.0 [facility]2022-07-17 20:10:00 Test Item Value Reference Range Interpretation Comments B/C Ratio (test code = B/C Ratio) 6 1 6-25 [facility] [id number] 20:10:00 Test Item Value Reference Range Interpretation Comments Globulin (test code = Globulin) 3.2 2.7-4.2 [facility]2022-07-17 20:10:00 Test Item Value Reference Range Interpretation Comments A/G Ratio (test code = A/G Ratio) 0.8 1 0.7-1.6 [facility]2022-07-17 20:10:00 Test Item Value Reference Range Interpretation Comments eGFR (test code = eGFR) 9 [facility] MichiganBztfuouEEKGQECUVQ4343-89-87 20:10:00 Test Item Value Reference Range Interpretation Comments WBC (test code = WBC) 4.3 3.7-10.4 [facility] HospitalEgboifkJSRYICKESV6841-78-64 20:10:00 Test Item Value Reference Range Interpretation Comments RBC (test code = RBC) 2.17 4.70-6.10 [facility] HospitalQbdlglfHSTKOBLFGK5080-01-01 20:10:00 Test Item Value Reference Range Interpretation Comments Hgb (test code = Hgb) 7.7 14.0-18.0 [facility] MichiganPtzboahJGRWQKSYHK5057-31-90 20:10:00 Test Item Value Reference Range Interpretation Comments Hct (test code = Hct) 22.9 42.0-54.0 [place] 264282-07-17 20:10:00 Test Item Value Reference Range Interpretation Comments MCV (test code = MCV) 105.9 80.0-94.0 [place] 264282-07-17 20:10:00 Test Item Value Reference Range Interpretation Comments MCH (test code = MCH) 35.4 pg 27.0-31.0 [facility] HospitalAbknqmjECFTBHKWKR6505-99-45 20:10:00 Test Item Value Reference Range Interpretation Comments MCHC (test code = MCHC) 33.4 32.0-36.0 [place] 264282-07-17 20:10:00 Test Item Value Reference Range Interpretation Comments RDW (test code = RDW) 23.6 11.5-14.5 [place] 264282-07-17 20:10:00 Test Item Value Reference Range Interpretation Comments Platelet (test code = Platelet) 146 133-450 [place] 264282-07-17 20:10:00 Test Item Value Reference Range Interpretation Comments MPV (test code = MPV) 8.0 7.4-10.4 [place] 264282-07-17 20:10:00 Test Item Value Reference Range Interpretation Comments Plt Morph (test code = Normal (12/14/21 3:10 Plt Morph) PM) [place] 264282-07-17 20:10:00 Test Item Value Reference Range Interpretation Comments Segs (test code = Segs) 67.4 45.0-75.0 [place] 264282-07-17 20:10:00 Test Item Value Reference Range Interpretation Comments Lymphocytes (test code = Lymphocytes) 12.8 20.0-40.0 [place] 264282-07-17 20:10:00 Test Item Value Reference Range Interpretation Comments Monocytes (test code = Monocytes) 15.1 2.0-12.0 [place] 264282-07-17 20:10:00 Test Item Value Reference Range Interpretation Comments Eosinophils (test code = 4.1 See_Comment [A utomated message] The Eosinophils) system which ge nerated this result tra nsmitted reference range : <=4.0. The reference r samantha was not used to int erpret this result as normal/abnormal . [place] 264282-07-17 20:10:00 Test Item Value Reference Range Interpretation Comments Basophils (test code = 0.6 See_Comment [Aut omated message] The Basophils) system which ge nerated this result tra nsmitted reference range : <=1.0. The reference r samantha was not used to int erpret this result as normal/abnormal . [place] 264282-07-17 20:10:00 Test Item Value Reference Range Interpretation Comments Neutrophils # (test code = Neutrophils 2.9 1.5-8.1 #) [place] 264282-07-17 20:10:00 Test Item Value Reference Range Interpretation Comments Lymphocytes # (test code = Lymphocytes 0.5 1.0-5.5 #) [facility]MqfdbljZGEIFTDNFC9236-62-01 20:10:00 Test Item Value Reference Range Interpretation Comments Monocytes # (test code 0.6 See_Comment [Aut omated message] The = Monocytes #) system which generated this result tra nsmitted reference range : <=0.8. The reference r samanhta was not used to int erpret this result as normal/abnormal . [facility] HospitalGakutjzHNJEAMHPKR5457-43-60 20:10:00 Test Item Value Reference Range Interpretation Comments Eosinophils # (test code 0.2 See_Comment [A utomated message] The = Eosinophils #) system whic h generated this result tra nsmitted reference range : <=0.5. The reference r samantha was not used to int erpret this result as normal/abnormal . [facility] HospitalChhipfmQKDEOTAPWJ7123-68-33 20:10:00 Test Item Value Reference Range Interpretation Comments Anisocyte (test code = 1+ *ABN*(12/14/21 Anisocyte) 3:10 PM) [facility] MichiganLqfuowtPTVAGDTTOM3656-10-06 20:10:00 Test Item Value Reference Range Interpretation Comments Macrocyte (test code = 1+ *ABN*(12/14/21 Macrocyte) 3:10 PM) [facility]evilleOhckoamAVZCVXNOXD0823-39-84 20:10:00 Test Item Value Reference Range Interpretation Comments Coronavirus (COVID-19) Detected MANUEL (test code = 4*ABN*(12/14/21 3:10 Coronavirus (COVID-19) PM) MANUEL) [facility]ARD[facility] [id number] 20:10:00 Test Item Value Reference Range Interpretation Comments HS Troponin I Baseline (test code = HS 340 Troponin I Baseline) [facility] [id number] 20:10:00 Test Item Value Reference Range Interpretation Comments Glucose Lvl (test code = Glucose Lvl) 60 70-99 [facility]2022-07-17 20:10:00 Test Item Value Reference Range Interpretation Comments BUN (test code = BUN) 35 7-22 [facility] [id number] 20:10:00 Test Item Value Reference Range Interpretation Comments Creatinine Lvl (test code = Creatinine 6.10 0.50-1.40 Lvl) [place] 412362-07-17 20:10:00 Test Item Value Reference Range Interpretation Comments Sodium Lvl (test code = Sodium Lvl) 139 135-145 [place] 412362-07-17 20:10:00 Test Item Value Reference Range Interpretation Comments Potassium Lvl (test code = Potassium 3.1 3.5-5.1 Lvl) [place] 412362-07-17 20:10:00 Test Item Value Reference Range Interpretation Comments Chloride Lvl (test code = Chloride Lvl) 105 95-109 [place] 412362-07-17 20:10:00 Test Item Value Reference Range Interpretation Comments CO2 (test code = CO2) 28 24-32 [place] 412362-07-17 20:10:00 Test Item Value Reference Range Interpretation Comments Calcium Lvl (test code = Calcium Lvl) 8.1 8.5-10.5 [place] 412362-07-17 20:10:00 Test Item Value Reference Range Interpretation Comments Total Protein (test code = Total 5.8 6.4-8.4 Protein) [place] 412362-07-17 20:10:00 Test Item Value Reference Range Interpretation Comments Albumin Lvl (test code = Albumin Lvl) 2.6 3.5-5.0 [place] 412362-07-17 20:10:00 Test Item Value Reference Range Interpretation Comments ALT (test code = ALT) 74 See_Comment [Auto mated message] The system which ge nerated this result transmit swathi reference range : <=65. The reference range was not used to interpr et this result as deny l/abnormal. [place] 412362-07-17 20:10:00 Test Item Value Reference Range Interpretation Comments AST (test code = AST) 117 See_Comment [Auto mated message] The system which ge nerated this result transmit swathi reference range : <=37. The reference range was not used to interpr et this result as deny l/abnormal. [place] 412362-07-17 20:10:00 Test Item Value Reference Range Interpretation Comments Alk Phos (test code = Alk Phos) 241 39-136 [place] 412362-07-17 20:10:00 Test Item Value Reference Range Interpretation Comments Bili Total (test code = Bili Total) 0.8 0.2-1.3 [facility]2022-07-17 20:10:00 Test Item Value Reference Range Interpretation Comments AGAP (test code = AGAP) 9.1 10.0-20.0 [place] 412362-07-17 20:10:00 Test Item Value Reference Range Interpretation Comments B/C Ratio (test code = B/C Ratio) 6 1 6-25 [place] 412362-07-17 20:10:00 Test Item Value Reference Range Interpretation Comments Globulin (test code = Globulin) 3.2 2.7-4.2 [place] 412362-07-17 20:10:00 Test Item Value Reference Range Interpretation Comments A/G Ratio (test code = A/G Ratio) 0.8 1 0.7-1.6 [facility]2022-07-17 20:10:00 Test Item Value Reference Range Interpretation Comments eGFR (test code = eGFR) 9 [facility] HospitalNydckowBPDOTDTQWR3506-47-99 20:10:00 Test Item Value Reference Range Interpretation Comments WBC (test code = WBC) 4.3 3.7-10.4 [place] 264282-07-17 20:10:00 Test Item Value Reference Range Interpretation Comments RBC (test code = RBC) 2.17 4.70-6.10 [place] 264282-07-17 20:10:00 Test Item Value Reference Range Interpretation Comments Hgb (test code = Hgb) 7.7 14.0-18.0 [place] 264282-07-17 20:10:00 Test Item Value Reference Range Interpretation Comments Hct (test code = Hct) 22.9 42.0-54.0 [place] 264282-07-17 20:10:00 Test Item Value Reference Range Interpretation Comments MCV (test code = MCV) 105.9 80.0-94.0 [place] 264282-07-17 20:10:00 Test Item Value Reference Range Interpretation Comments MCH (test code = MCH) 35.4 pg 27.0-31.0 [place] 264282-07-17 20:10:00 Test Item Value Reference Range Interpretation Comments MCHC (test code = MCHC) 33.4 32.0-36.0 [facility] HospitalIufapuiWOBSFCQRBG8449-10-11 20:10:00 Test Item Value Reference Range Interpretation Comments RDW (test code = RDW) 23.6 11.5-14.5 [facility] HospitalDjacttsEPQFWNZBQW5767-99-79 20:10:00 Test Item Value Reference Range Interpretation Comments Platelet (test code = Platelet) 146 133-450 [facility] HospitalFutodtvTGMXVLEYTE0913-18-38 20:10:00 Test Item Value Reference Range Interpretation Comments MPV (test code = MPV) 8.0 7.4-10.4 [facility] HospitalOtafbdyDQWGYAEHEM9412-29-27 20:10:00 Test Item Value Reference Range Interpretation Comments Plt Morph (test code = Normal (12/14/21 3:10 Plt Morph) PM) [facility] HospitalIsxxmsvOMLWKRAZTZ2376-65-01 20:10:00 Test Item Value Reference Range Interpretation Comments Segs (test code = Segs) 67.4 45.0-75.0 [facility] HospitalXrjpzkrFRKJHCTBHD5870-28-31 20:10:00 Test Item Value Reference Range Interpretation Comments Lymphocytes (test code = Lymphocytes) 12.8 20.0-40.0 [facility] HospitalJatlrdaHBCWAPIJLA7206-10-14 20:10:00 Test Item Value Reference Range Interpretation Comments Monocytes (test code = Monocytes) 15.1 2.0-12.0 [facility] HospitalBjazktrANNXKJOYIR7506-43-96 20:10:00 Test Item Value Reference Range Interpretation Comments Eosinophils (test code = 4.1 See_Comment [A utomated message] The Eosinophils) system which ge nerated this result tra nsmitted reference range : <=4.0. The reference r samantha was not used to int erpret this result as normal/abnormal . [facility] HospitalComdphiOWZYRITFAB6173-15-34 20:10:00 Test Item Value Reference Range Interpretation Comments Basophils (test code = 0.6 See_Comment [Aut omated message] The Basophils) system which ge nerated this result tra nsmitted reference range : <=1.0. The reference r samantha was not used to int erpret this result as normal/abnormal . [facility] HospitalKslbixgSGBXSWSNMK2776-66-54 20:10:00 Test Item Value Reference Range Interpretation Comments Neutrophils # (test code = Neutrophils 2.9 1.5-8.1 #) [facility] HospitalNlgrkjzCUHLBECGND8658-61-65 20:10:00 Test Item Value Reference Range Interpretation Comments Lymphocytes # (test code = Lymphocytes 0.5 1.0-5.5 #) [facility] HospitalOhmsjoeGXWSAREPHY4899-84-81 20:10:00 Test Item Value Reference Range Interpretation Comments Monocytes # (test code 0.6 See_Comment [Aut omated message] The = Monocytes #) system which generated this result tra nsmitted reference range : <=0.8. The reference r samantha was not used to int erpret this result as normal/abnormal . [facility] HospitalZwesuuzIVWNSGGRQP6158-64-86 20:10:00 Test Item Value Reference Range Interpretation Comments Eosinophils # (test code 0.2 See_Comment [A utomated message] The = Eosinophils #) system whic h generated this result tra nsmitted reference range : <=0.5. The reference r samantha was not used to int erpret this result as normal/abnormal . [facility] HospitalPlryxdwDWBMVZUMVI9265-06-75 20:10:00 Test Item Value Reference Range Interpretation Comments Anisocyte (test code = 1+ *ABN*(12/14/21 Anisocyte) 3:10 PM) [facility] HospitalErqptpsHQXXTKQMRW5928-57-40 20:10:00 Test Item Value Reference Range Interpretation Comments Macrocyte (test code = 1+ *ABN*(12/14/21 Macrocyte) 3:10 PM) [facility]0674[facility]-82 20:10:00 Test Item Value Reference Range Interpretation Comments Coronavirus (COVID-19) Detected MANUEL (test code = 4*ABN*(12/14/21 3:10 Coronavirus (COVID-19) PM) MANUEL) [facility]2022-07-07 01:43:00 Test Item Value Reference Range Interpretation Comments Occult Bld Stl (test Negative (12/03/21 8:43 code = Occult Bld Stl) PM) [facility] [id number] 01:43:00 Test Item Value Reference Range Interpretation Comments Occult Bld Stl (test Negative (12/03/21 8:43 code = Occult Bld Stl) PM) [facility] AND [id number] 01:43:00 Test Item Value Reference Range Interpretation Comments Occult Bld Stl (test Negative (12/03/21 8:43 code = Occult Bld Stl) PM) [facility] AND [id number] 01:43:00 Test Item Value Reference Range Interpretation Comments Occult Bld Stl (test Negative (12/03/21 8:43 code = Occult Bld Stl) PM) [facility] AND [id number] 01:43:00 Test Item Value Reference Range Interpretation Comments Occult Bld Stl (test Negative (12/03/21 8:43 code = Occult Bld Stl) PM) [facility] AND [id number] 01:43:00 Test Item Value Reference Range Interpretation Comments Occult Bld Stl (test Negative (12/03/21 8:43 code = Occult Bld Stl) PM) [facility] AND [id number] 01:43:00 Test Item Value Reference Range Interpretation Comments Occult Bld Stl (test Negative (12/03/21 8:43 code = Occult Bld Stl) PM) [facility] AND [id number] 01:43:00 Test Item Value Reference Range Interpretation Comments Occult Bld Stl (test Negative (12/03/21 8:43 code = Occult Bld Stl) PM) [facility] AND [id number] 01:43:00 Test Item Value Reference Range Interpretation Comments Occult Bld Stl (test Negative (12/03/21 8:43 code = Occult Bld Stl) PM) [facility] AND [id number] 01:43:00 Test Item Value Reference Range Interpretation Comments Occult Bld Stl (test Negative (12/03/21 8:43 code = Occult Bld Stl) PM) [facility] AND [id number] 01:43:00 Test Item Value Reference Range Interpretation Comments Occult Bld Stl (test Negative (12/03/21 8:43 code = Occult Bld Stl) PM) [facility] [id number] 01:29:00 Test Item Value Reference Range Interpretation Comments RBC product (test code Product available = RBC product) 2(12/03/21 8:29 PM) [facility] [id number] 01:29:00 Test Item Value Reference Range Interpretation Comments RBC product (test code Product available = RBC product) 2(12/03/21 8:29 PM) [facility] [id number] 01:29:00 Test Item Value Reference Range Interpretation Comments RBC product (test code Product available = RBC product) 2(12/03/21 8:29 PM) [facility] [id number] 01:29:00 Test Item Value Reference Range Interpretation Comments RBC product (test code Product available = RBC product) 2(12/03/21 8:29 PM) [facility] [id number] 01:29:00 Test Item Value Reference Range Interpretation Comments RBC product (test code Product available = RBC product) 2(12/03/21 8:29 PM) [facility] [id number] 01:29:00 Test Item Value Reference Range Interpretation Comments RBC product (test code Product available = RBC product) 2(12/03/21 8:29 PM) [facility] [id number] 01:29:00 Test Item Value Reference Range Interpretation Comments RBC product (test code Product available = RBC product) 2(12/03/21 8:29 PM) [facility] [id number] 01:29:00 Test Item Value Reference Range Interpretation Comments RBC product (test code Product available = RBC product) 2(12/03/21 8:29 PM) [facility] [id number] 01:29:00 Test Item Value Reference Range Interpretation Comments RBC product (test code Product available = RBC product) 2(12/03/21 8:29 PM) [facility] [id number] 01:29:00 Test Item Value Reference Range Interpretation Comments RBC product (test code Product available = RBC product) 2(12/03/21 8:29 PM) [facility] [id number] 01:29:00 Test Item Value Reference Range Interpretation Comments RBC product (test code Product available = RBC product) 2(12/03/21 8:29 PM) [facility] [id number] 00:36:00 Test Item Value Reference Range Interpretation Comments ABO/Rh (test code = ABO/Rh) AB POS [facility] [id number] 00:36:00 Test Item Value Reference Range Interpretation Comments Antibody Scrn (test Negative (12/03/21 7:36 code = Antibody Scrn) PM) [facility]2022-07-07 00:36:00 Test Item Value Reference Range Interpretation Comments Glucose Lvl (test code = Glucose Lvl) 143 70-99 [facility]2022-07-07 00:36:00 Test Item Value Reference Range Interpretation Comments BUN (test code = BUN) 39 7-22 [facility]2022-07-07 00:36:00 Test Item Value Reference Range Interpretation Comments Creatinine Lvl (test code = Creatinine 5.46 0.50-1.40 Lvl) [facility]2022-07-07 00:36:00 Test Item Value Reference Range Interpretation Comments Sodium Lvl (test code = Sodium Lvl) 136 135-145 [facility]2022-07-07 00:36:00 Test Item Value Reference Range Interpretation Comments Potassium Lvl (test code = Potassium 4.2 3.5-5.1 Lvl) [facility]2022-07-07 00:36:00 Test Item Value Reference Range Interpretation Comments Chloride Lvl (test code = Chloride Lvl) 100 95-109 [facility]2022-07-07 00:36:00 Test Item Value Reference Range Interpretation Comments CO2 (test code = CO2) 27 24-32 [facility]2022-07-07 00:36:00 Test Item Value Reference Range Interpretation Comments Calcium Lvl (test code = Calcium Lvl) 8.9 8.5-10.5 [facility]2022-07-07 00:36:00 Test Item Value Reference Range Interpretation Comments AGAP (test code = AGAP) 13.2 10.0-20.0 [facility]2022-07-07 00:36:00 Test Item Value Reference Range Interpretation Comments eGFR (test code = eGFR) 10 [facility] HospitalNkioodlMGVJMHPRXK8116-75-28 00:36:00 Test Item Value Reference Range Interpretation Comments WBC (test code = WBC) 2.5 3.7-10.4 [place] 264282-07-07 00:36:00 Test Item Value Reference Range Interpretation Comments RBC (test code = RBC) 1.97 4.70-6.10 [facility] HospitalVyoghdcXERRTZLMYM3874-31-29 00:36:00 Test Item Value Reference Range Interpretation Comments Hgb (test code = Hgb) 7.1 14.0-18.0 [facility] HospitalBujzxaqETERBOOMPG0671-63-14 00:36:00 Test Item Value Reference Range Interpretation Comments Hct (test code = Hct) 20.6 42.0-54.0 [facility] HospitalNtreifvLBXAAXOSBU1620-34-43 00:36:00 Test Item Value Reference Range Interpretation Comments MCV (test code = MCV) 105.0 80.0-94.0 [facility] HospitalBdnfmqiHKPOZDBYJL6586-38-24 00:36:00 Test Item Value Reference Range Interpretation Comments MCH (test code = MCH) 36.2 pg 27.0-31.0 [facility] HospitalQpjnocmZBMRCMDFMI2957-32-35 00:36:00 Test Item Value Reference Range Interpretation Comments MCHC (test code = MCHC) 34.5 32.0-36.0 [facility] HospitalRwudtpwJLMZXIBTBK0013-92-28 00:36:00 Test Item Value Reference Range Interpretation Comments RDW (test code = RDW) 21.1 11.5-14.5 [facility] HospitalKdgpalxJGFASRRTZU2759-16-92 00:36:00 Test Item Value Reference Range Interpretation Comments Platelet (test code = Platelet) 136 133-450 [facility] HospitalGmszrmdETTYQARVHS7245-43-13 00:36:00 Test Item Value Reference Range Interpretation Comments MPV (test code = MPV) 8.7 7.4-10.4 [facility] HospitalXdrepgtVGCDJNBEJZ1245-49-87 00:36:00 Test Item Value Reference Range Interpretation Comments Segs (test code = Segs) 59.5 45.0-75.0 [facility] HospitalBmuxuwwMHDFMMDJYI3696-80-26 00:36:00 Test Item Value Reference Range Interpretation Comments Lymphocytes (test code = Lymphocytes) 25.2 20.0-40.0 [facility] HospitalCmbbblaRBUYMOKUTK7509-52-50 00:36:00 Test Item Value Reference Range Interpretation Comments Monocytes (test code = Monocytes) 12.5 2.0-12.0 [facility] HospitalXqaeyrzMHUSXYZBUG8443-14-50 00:36:00 Test Item Value Reference Range Interpretation Comments Eosinophils (test code = 2.1 See_Comment [A utomated message] The Eosinophils) system which ge nerated this result tra nsmitted reference range : <=4.0. The reference r samantha was not used to int erpret this result as normal/abnormal . [facility]EtigbvtHBXVWCAQPE7432-52-51 00:36:00 Test Item Value Reference Range Interpretation Comments Basophils (test code = 0.7 See_Comment [Aut omated message] The Basophils) system which ge nerated this result tra nsmitted reference range : <=1.0. The reference r samantha was not used to int erpret this result as normal/abnormal . [facility]evilleJwnsrmbRQAGEPKWRP2945-50-75 00:36:00 Test Item Value Reference Range Interpretation Comments Neutrophils # (test code = Neutrophils 1.5 1.5-8.1 #) [facility] HospitalNxrhnqlYHOHGUHGNY8739-32-23 00:36:00 Test Item Value Reference Range Interpretation Comments Lymphocytes # (test code = Lymphocytes 0.6 1.0-5.5 #) [facility] HospitalTqubupvNUSIBZIEXB5882-42-31 00:36:00 Test Item Value Reference Range Interpretation Comments Monocytes # (test code 0.3 See_Comment [Aut omated message] The = Monocytes #) system which generated this result tra nsmitted reference range : <=0.8. The reference r samantha was not used to int erpret this result as normal/abnormal . [facility]evilleVpxcgemEQRPBOBZVD6596-00-88 00:36:00 Test Item Value Reference Range Interpretation Comments Eosinophils # (test code 0.1 See_Comment [A utomated message] The = Eosinophils #) system whic h generated this result tra nsmitted reference range : <=0.5. The reference r samantha was not used to int erpret this result as normal/abnormal . [facility] [employer] [id number] 00:36:00 Test Item Value Reference Range Interpretation Comments ABO/Rh (test code = ABO/Rh) AB POS [facility] [employer] [id number] 00:36:00 Test Item Value Reference Range Interpretation Comments Antibody Scrn (test Negative (12/03/21 7:36 code = Antibody Scrn) PM) [facility] [id number] 00:36:00 Test Item Value Reference Range Interpretation Comments Glucose Lvl (test code = Glucose Lvl) 143 70-99 [facility] [employer] [id number] 00:36:00 Test Item Value Reference Range Interpretation Comments BUN (test code = BUN) 39 7-22 [place] 412362-07-07 00:36:00 Test Item Value Reference Range Interpretation Comments Creatinine Lvl (test code = Creatinine 5.46 0.50-1.40 Lvl) [place] 412362-07-07 00:36:00 Test Item Value Reference Range Interpretation Comments Sodium Lvl (test code = Sodium Lvl) 136 135-145 [place] 412362-07-07 00:36:00 Test Item Value Reference Range Interpretation Comments Potassium Lvl (test code = Potassium 4.2 3.5-5.1 Lvl) [place] 412362-07-07 00:36:00 Test Item Value Reference Range Interpretation Comments Chloride Lvl (test code = Chloride Lvl) 100 95-109 [place] 412362-07-07 00:36:00 Test Item Value Reference Range Interpretation Comments CO2 (test code = CO2) 27 24-32 [place] 412362-07-07 00:36:00 Test Item Value Reference Range Interpretation Comments Calcium Lvl (test code = Calcium Lvl) 8.9 8.5-10.5 [place] 412362-07-07 00:36:00 Test Item Value Reference Range Interpretation Comments AGAP (test code = AGAP) 13.2 10.0-20.0 [place] 412362-07-07 00:36:00 Test Item Value Reference Range Interpretation Comments eGFR (test code = eGFR) 10 [place] 264282-07-07 00:36:00 Test Item Value Reference Range Interpretation Comments WBC (test code = WBC) 2.5 3.7-10.4 [place] 264282-07-07 00:36:00 Test Item Value Reference Range Interpretation Comments RBC (test code = RBC) 1.97 4.70-6.10 [place] 264282-07-07 00:36:00 Test Item Value Reference Range Interpretation Comments Hgb (test code = Hgb) 7.1 14.0-18.0 [place] 264282-07-07 00:36:00 Test Item Value Reference Range Interpretation Comments Hct (test code = Hct) 20.6 42.0-54.0 [place] 264282-07-07 00:36:00 Test Item Value Reference Range Interpretation Comments MCV (test code = MCV) 105.0 80.0-94.0 [facility] HospitalLgpwyhsOOHHNKYOYT6233-83-67 00:36:00 Test Item Value Reference Range Interpretation Comments MCH (test code = MCH) 36.2 pg 27.0-31.0 [facility] HospitalKyphenbFYHUNRXOTD9367-02-95 00:36:00 Test Item Value Reference Range Interpretation Comments MCHC (test code = MCHC) 34.5 32.0-36.0 [place] 264282-07-07 00:36:00 Test Item Value Reference Range Interpretation Comments RDW (test code = RDW) 21.1 11.5-14.5 [place] 264282-07-07 00:36:00 Test Item Value Reference Range Interpretation Comments Platelet (test code = Platelet) 136 133-450 [facility] HospitalDqcrifyLUFGEGNJRC3650-80-37 00:36:00 Test Item Value Reference Range Interpretation Comments MPV (test code = MPV) 8.7 7.4-10.4 [facility] HospitalBucubodQFXJMEICMG7917-95-57 00:36:00 Test Item Value Reference Range Interpretation Comments Segs (test code = Segs) 59.5 45.0-75.0 [place] 264282-07-07 00:36:00 Test Item Value Reference Range Interpretation Comments Lymphocytes (test code = Lymphocytes) 25.2 20.0-40.0 [facility] HospitalUkkrggmKBKBIUNYLI7040-84-35 00:36:00 Test Item Value Reference Range Interpretation Comments Monocytes (test code = Monocytes) 12.5 2.0-12.0 [facility] HospitalXonjrjgNYFVMBHSUB5557-23-08 00:36:00 Test Item Value Reference Range Interpretation Comments Eosinophils (test code = 2.1 See_Comment [A utomated message] The Eosinophils) system which ge nerated this result tra nsmitted reference range : <=4.0. The reference r samantha was not used to int erpret this result as normal/abnormal . [place] 264282-07-07 00:36:00 Test Item Value Reference Range Interpretation Comments Basophils (test code = 0.7 See_Comment [Aut omated message] The Basophils) system which ge nerated this result tra nsmitted reference range : <=1.0. The reference r samantha was not used to int erpret this result as normal/abnormal . [facility] HospitalIepbrmkOXMFEVIMVH4823-22-47 00:36:00 Test Item Value Reference Range Interpretation Comments Neutrophils # (test code = Neutrophils 1.5 1.5-8.1 #) [facility] HospitalSjxmitvSOMKCVWRUZ8968-08-87 00:36:00 Test Item Value Reference Range Interpretation Comments Lymphocytes # (test code = Lymphocytes 0.6 1.0-5.5 #) [facility] HospitalGhxayhyXFTQWCKNIC5730-22-41 00:36:00 Test Item Value Reference Range Interpretation Comments Monocytes # (test code 0.3 See_Comment [Aut omated message] The = Monocytes #) system which generated this result tra nsmitted reference range : <=0.8. The reference r samantha was not used to int erpret this result as normal/abnormal . [facility] HospitalCjnygzeVFLHKVPIRE8500-06-40 00:36:00 Test Item Value Reference Range Interpretation Comments Eosinophils # (test code 0.1 See_Comment [A utomated message] The = Eosinophils #) system whic h generated this result tra nsmitted reference range : <=0.5. The reference r samantha was not used to int erpret this result as normal/abnormal . [facility] YGFXWJZ1378-96-49 00:36:00 Test Item Value Reference Range Interpretation Comments ABO/Rh (test code = ABO/Rh) AB POS [facility] [id number] 00:36:00 Test Item Value Reference Range Interpretation Comments Antibody Scrn (test Negative (12/03/21 7:36 code = Antibody Scrn) PM) [facility] [id number] 00:36:00 Test Item Value Reference Range Interpretation Comments Glucose Lvl (test code = Glucose Lvl) 143 70-99 [facility] [id number] 00:36:00 Test Item Value Reference Range Interpretation Comments BUN (test code = BUN) 39 7-22 [facility] [id number] 00:36:00 Test Item Value Reference Range Interpretation Comments Creatinine Lvl (test code = Creatinine 5.46 0.50-1.40 Lvl) [facility] [id number] 00:36:00 Test Item Value Reference Range Interpretation Comments Sodium Lvl (test code = Sodium Lvl) 136 135-145 [place] 412362-07-07 00:36:00 Test Item Value Reference Range Interpretation Comments Potassium Lvl (test code = Potassium 4.2 3.5-5.1 Lvl) [facility]2022-07-07 00:36:00 Test Item Value Reference Range Interpretation Comments Chloride Lvl (test code = Chloride Lvl) 100 95-109 [place] 412362-07-07 00:36:00 Test Item Value Reference Range Interpretation Comments CO2 (test code = CO2) 27 24-32 [place] 412362-07-07 00:36:00 Test Item Value Reference Range Interpretation Comments Calcium Lvl (test code = Calcium Lvl) 8.9 8.5-10.5 [place] 412362-07-07 00:36:00 Test Item Value Reference Range Interpretation Comments AGAP (test code = AGAP) 13.2 10.0-20.0 [place] 412362-07-07 00:36:00 Test Item Value Reference Range Interpretation Comments eGFR (test code = eGFR) 10 [place] 264282-07-07 00:36:00 Test Item Value Reference Range Interpretation Comments WBC (test code = WBC) 2.5 3.7-10.4 [place] 264282-07-07 00:36:00 Test Item Value Reference Range Interpretation Comments RBC (test code = RBC) 1.97 4.70-6.10 [place] 264282-07-07 00:36:00 Test Item Value Reference Range Interpretation Comments Hgb (test code = Hgb) 7.1 14.0-18.0 [place] 264282-07-07 00:36:00 Test Item Value Reference Range Interpretation Comments Hct (test code = Hct) 20.6 42.0-54.0 [place] 264282-07-07 00:36:00 Test Item Value Reference Range Interpretation Comments MCV (test code = MCV) 105.0 80.0-94.0 [place] 264282-07-07 00:36:00 Test Item Value Reference Range Interpretation Comments MCH (test code = MCH) 36.2 pg 27.0-31.0 [place] 264282-07-07 00:36:00 Test Item Value Reference Range Interpretation Comments MCHC (test code = MCHC) 34.5 32.0-36.0 [facility] HospitalTfibibbGLAZWCZRNK7379-90-65 00:36:00 Test Item Value Reference Range Interpretation Comments RDW (test code = RDW) 21.1 11.5-14.5 [facility] HospitalNalnolgYZEXHRADOF7934-28-95 00:36:00 Test Item Value Reference Range Interpretation Comments Platelet (test code = Platelet) 136 133-450 [facility] HospitalUpishykNQUZLWEDLE7031-47-36 00:36:00 Test Item Value Reference Range Interpretation Comments MPV (test code = MPV) 8.7 7.4-10.4 [facility] HospitalSsguxsaHARBWNKHRI4095-03-30 00:36:00 Test Item Value Reference Range Interpretation Comments Segs (test code = Segs) 59.5 45.0-75.0 [facility] HospitalWgvryxgZRXZQXSCAT1162-65-92 00:36:00 Test Item Value Reference Range Interpretation Comments Lymphocytes (test code = Lymphocytes) 25.2 20.0-40.0 [facility] HospitalQeckdhbMAAGGARGIY2643-43-09 00:36:00 Test Item Value Reference Range Interpretation Comments Monocytes (test code = Monocytes) 12.5 2.0-12.0 [facility] HospitalGzyuxmzAJFIHOFTTS4295-33-68 00:36:00 Test Item Value Reference Range Interpretation Comments Eosinophils (test code = 2.1 See_Comment [A utomated message] The Eosinophils) system which ge nerated this result tra nsmitted reference range : <=4.0. The reference r samantha was not used to int erpret this result as normal/abnormal . [facility] HospitalIkxctrxHGMWZOBCYV7315-15-41 00:36:00 Test Item Value Reference Range Interpretation Comments Basophils (test code = 0.7 See_Comment [Aut omated message] The Basophils) system which ge nerated this result tra nsmitted reference range : <=1.0. The reference r samantha was not used to int erpret this result as normal/abnormal . [facility]omwinaDTBTIDYLGN8149-82-02 [facility]:36:00 Test Item Value Reference Range Interpretation Comments Neutrophils # (test code = Neutrophils 1.5 1.5-8.1 #) [facility]ClhxoywXRBIWXNSVC7732-09-36 00:36:00 Test Item Value Reference Range Interpretation Comments Lymphocytes # (test code = Lymphocytes 0.6 1.0-5.5 #) [facility]rpvvzBPOORCXBMD2652-[facility]:36:00 Test Item Value Reference Range Interpretation Comments Monocytes # (test code 0.3 See_Comment [Aut omated message] The = Monocytes #) system which generated this result tra nsmitted reference range : <=0.8. The reference r samantha was not used to int erpret this result as normal/abnormal . [facility]evilleDrfmqcwLJWJFAQNMH3856-85-63 00:36:00 Test Item Value Reference Range Interpretation Comments Eosinophils # (test code 0.1 See_Comment [A utomated message] The = Eosinophils #) system whic h generated this result tra nsmitted reference range : <=0.5. The reference r samantha was not used to int erpret this result as normal/abnormal . [facility] [employer]2022-07-07 00:36:00 Test Item Value Reference Range Interpretation Comments ABO/Rh (test code = ABO/Rh) AB POS [facility] [employer] [id number] 00:36:00 Test Item Value Reference Range Interpretation Comments Antibody Scrn (test Negative (12/03/21 7:36 code = Antibody Scrn) PM) [facility] [employer] [id number] 00:36:00 Test Item Value Reference Range Interpretation Comments Glucose Lvl (test code = Glucose Lvl) 143 70-99 [facility] [employer] [id number] 00:36:00 Test Item Value Reference Range Interpretation Comments BUN (test code = BUN) 39 7-22 [facility] [employer] [id number] 00:36:00 Test Item Value Reference Range Interpretation Comments Creatinine Lvl (test code = Creatinine 5.46 0.50-1.40 Lvl) [facility] [employer] [id number] 00:36:00 Test Item Value Reference Range Interpretation Comments Sodium Lvl (test code = Sodium Lvl) 136 135-145 [facility] [employer] [id number] 00:36:00 Test Item Value Reference Range Interpretation Comments Potassium Lvl (test code = Potassium 4.2 3.5-5.1 Lvl) [facility] [employer] [id number] 00:36:00 Test Item Value Reference Range Interpretation Comments Chloride Lvl (test code = Chloride Lvl) 100 95-109 [facility]2022-07-07 00:36:00 Test Item Value Reference Range Interpretation Comments CO2 (test code = CO2) 27 24-32 [facility] [id number] 00:36:00 Test Item Value Reference Range Interpretation Comments Calcium Lvl (test code = Calcium Lvl) 8.9 8.5-10.5 [facility]2022-07-07 00:36:00 Test Item Value Reference Range Interpretation Comments AGAP (test code = AGAP) 13.2 10.0-20.0 [facility]2022-07-07 00:36:00 Test Item Value Reference Range Interpretation Comments eGFR (test code = eGFR) 10 [facility] HospitalFhnsyucUQUAPGCBWR7906-71-60 00:36:00 Test Item Value Reference Range Interpretation Comments WBC (test code = WBC) 2.5 3.7-10.4 [facility] HospitalFhmzvspECDEKNROPY5886-52-48 00:36:00 Test Item Value Reference Range Interpretation Comments RBC (test code = RBC) 1.97 4.70-6.10 [facility] HospitalHjyxsucWTPDGUOBJE8097-22-46 00:36:00 Test Item Value Reference Range Interpretation Comments Hgb (test code = Hgb) 7.1 14.0-18.0 [facility] HospitalWnyydasDCFJIQCBEE6506-80-65 00:36:00 Test Item Value Reference Range Interpretation Comments Hct (test code = Hct) 20.6 42.0-54.0 [facility] HospitalIshophzVIZZLRUNVX5512-95-56 00:36:00 Test Item Value Reference Range Interpretation Comments MCV (test code = MCV) 105.0 80.0-94.0 [place] 264282-07-07 00:36:00 Test Item Value Reference Range Interpretation Comments MCH (test code = MCH) 36.2 pg 27.0-31.0 [place] 264282-07-07 00:36:00 Test Item Value Reference Range Interpretation Comments MCHC (test code = MCHC) 34.5 32.0-36.0 [place] 264282-07-07 00:36:00 Test Item Value Reference Range Interpretation Comments RDW (test code = RDW) 21.1 11.5-14.5 [place] 264282-07-07 00:36:00 Test Item Value Reference Range Interpretation Comments Platelet (test code = Platelet) 136 133-450 [facility] HospitalJrxlqvkRYGTCRSMPK6371-99-84 00:36:00 Test Item Value Reference Range Interpretation Comments MPV (test code = MPV) 8.7 7.4-10.4 [place] 264282-07-07 00:36:00 Test Item Value Reference Range Interpretation Comments Segs (test code = Segs) 59.5 45.0-75.0 [place] 264282-07-07 00:36:00 Test Item Value Reference Range Interpretation Comments Lymphocytes (test code = Lymphocytes) 25.2 20.0-40.0 [place] 264282-07-07 00:36:00 Test Item Value Reference Range Interpretation Comments Monocytes (test code = Monocytes) 12.5 2.0-12.0 [facility] HospitalGsusqhmDBMANUNTSJ1975-28-21 00:36:00 Test Item Value Reference Range Interpretation Comments Eosinophils (test code = 2.1 See_Comment [A utomated message] The Eosinophils) system which ge nerated this result tra nsmitted reference range : <=4.0. The reference r samantha was not used to int erpret this result as normal/abnormal . [facility] HospitalVjwywyhSUUNQYAEXH9213-48-63 00:36:00 Test Item Value Reference Range Interpretation Comments Basophils (test code = 0.7 See_Comment [Aut omated message] The Basophils) system which ge nerated this result tra nsmitted reference range : <=1.0. The reference r samantha was not used to int erpret this result as normal/abnormal . [facility] HospitalGapuqvgNNHRPXMORI3826-97-48 00:36:00 Test Item Value Reference Range Interpretation Comments Neutrophils # (test code = Neutrophils 1.5 1.5-8.1 #) [place] 264282-07-07 00:36:00 Test Item Value Reference Range Interpretation Comments Lymphocytes # (test code = Lymphocytes 0.6 1.0-5.5 #) [place] 264282-07-07 00:36:00 Test Item Value Reference Range Interpretation Comments Monocytes # (test code 0.3 See_Comment [Aut omated message] The = Monocytes #) system which generated this result tra nsmitted reference range : <=0.8. The reference r samatnha was not used to int erpret this result as normal/abnormal . [facility]evilleItyzvquOSGEVFPKXH3013-50-62 00:36:00 Test Item Value Reference Range Interpretation Comments Eosinophils # (test code 0.1 See_Comment [A utomated message] The = Eosinophils #) system whic h generated this result tra nsmitted reference range : <=0.5. The reference r samantha was not used to int erpret this result as normal/abnormal . [facility] [employer] VVCDTMQ4293-47-12 00:36:00 Test Item Value Reference Range Interpretation Comments ABO/Rh (test code = ABO/Rh) AB POS [facility] [employer] [id number] 00:36:00 Test Item Value Reference Range Interpretation Comments Antibody Scrn (test Negative (12/03/21 7:36 code = Antibody Scrn) PM) [facility] [employer] [id number] 00:36:00 Test Item Value Reference Range Interpretation Comments Glucose Lvl (test code = Glucose Lvl) 143 70-99 [facility] [employer] [id number] 00:36:00 Test Item Value Reference Range Interpretation Comments BUN (test code = BUN) 39 7-22 [facility] [employer] [id number] 00:36:00 Test Item Value Reference Range Interpretation Comments Creatinine Lvl (test code = Creatinine 5.46 0.50-1.40 Lvl) [facility] [employer] [id number] 00:36:00 Test Item Value Reference Range Interpretation Comments Sodium Lvl (test code = Sodium Lvl) 136 135-145 [facility] [employer] [id number] 00:36:00 Test Item Value Reference Range Interpretation Comments Potassium Lvl (test code = Potassium 4.2 3.5-5.1 Lvl) [facility] [employer] [id number] 00:36:00 Test Item Value Reference Range Interpretation Comments Chloride Lvl (test code = Chloride Lvl) 100 95-109 [facility] [employer] URXJJ4432-06-42 00:36:00 Test Item Value Reference Range Interpretation Comments CO2 (test code = CO2) 27 24-32 [facility] [employer] [id number] 00:36:00 Test Item Value Reference Range Interpretation Comments Calcium Lvl (test code = Calcium Lvl) 8.9 8.5-10.5 [facility] [employer] [id number] 00:36:00 Test Item Value Reference Range Interpretation Comments AGAP (test code = AGAP) 13.2 10.0-20.0 [facility] [id number] 00:36:00 Test Item Value Reference Range Interpretation Comments eGFR (test code = eGFR) 10 [facility] HospitalGxdfroiASQMCFTFRH5292-44-54 00:36:00 Test Item Value Reference Range Interpretation Comments WBC (test code = WBC) 2.5 3.7-10.4 [facility] HospitalJnzbxljVXQHWQTTXN6005-69-00 00:36:00 Test Item Value Reference Range Interpretation Comments RBC (test code = RBC) 1.97 4.70-6.10 [facility]XbfluwhZIEYFQMRTJ6454-80-99 00:36:00 Test Item Value Reference Range Interpretation Comments Hgb (test code = Hgb) 7.1 14.0-18.0 [facility] HospitalRqmrwlzDISDBGWQXA6118-45-09 00:36:00 Test Item Value Reference Range Interpretation Comments Hct (test code = Hct) 20.6 42.0-54.0 [facility]TqlyngsZLSJJAIKCJ9748-85-10 00:36:00 Test Item Value Reference Range Interpretation Comments MCV (test code = MCV) 105.0 80.0-94.0 [facility]landQozughdCRVMMLLGSN8570-75-15 00:36:00 Test Item Value Reference Range Interpretation Comments MCH (test code = MCH) 36.2 pg 27.0-31.0 [facility] HospitalZcrectkGNNBJAYZEQ7755-86-29 00:36:00 Test Item Value Reference Range Interpretation Comments MCHC (test code = MCHC) 34.5 32.0-36.0 [facility]evilleWblbfirNNRMGABAAV9512-96-14 00:36:00 Test Item Value Reference Range Interpretation Comments RDW (test code = RDW) 21.1 11.5-14.5 [facility] [employer] [id number] 00:36:00 Test Item Value Reference Range Interpretation Comments ABO/Rh (test code = ABO/Rh) AB POS [facility] [employer] [id number] 00:36:00 Test Item Value Reference Range Interpretation Comments Antibody Scrn (test Negative (12/03/21 7:36 code = Antibody Scrn) PM) [facility] [id number] 00:36:00 Test Item Value Reference Range Interpretation Comments Glucose Lvl (test code = Glucose Lvl) 143 70-99 [place] 412362-07-07 00:36:00 Test Item Value Reference Range Interpretation Comments BUN (test code = BUN) 39 7-22 [place] 412362-07-07 00:36:00 Test Item Value Reference Range Interpretation Comments Creatinine Lvl (test code = Creatinine 5.46 0.50-1.40 Lvl) [place] 412362-07-07 00:36:00 Test Item Value Reference Range Interpretation Comments Sodium Lvl (test code = Sodium Lvl) 136 135-145 [place] 412362-07-07 00:36:00 Test Item Value Reference Range Interpretation Comments Potassium Lvl (test code = Potassium 4.2 3.5-5.1 Lvl) [place] 412362-07-07 00:36:00 Test Item Value Reference Range Interpretation Comments Chloride Lvl (test code = Chloride Lvl) 100 95-109 [place] 412362-07-07 00:36:00 Test Item Value Reference Range Interpretation Comments CO2 (test code = CO2) 27 24-32 [place] 412362-07-07 00:36:00 Test Item Value Reference Range Interpretation Comments Calcium Lvl (test code = Calcium Lvl) 8.9 8.5-10.5 [place] 264282-07-07 00:36:00 Test Item Value Reference Range Interpretation Comments Platelet (test code = Platelet) 136 133-450 [place] 412362-07-07 00:36:00 Test Item Value Reference Range Interpretation Comments AGAP (test code = AGAP) 13.2 10.0-20.0 [place] 412362-07-07 00:36:00 Test Item Value Reference Range Interpretation Comments eGFR (test code = eGFR) 10 [place] 264282-07-07 00:36:00 Test Item Value Reference Range Interpretation Comments WBC (test code = WBC) 2.5 3.7-10.4 [place] 264282-07-07 00:36:00 Test Item Value Reference Range Interpretation Comments RBC (test code = RBC) 1.97 4.70-6.10 [place] 264282-07-07 00:36:00 Test Item Value Reference Range Interpretation Comments Hgb (test code = Hgb) 7.1 14.0-18.0 [facility] HospitalYwaziuuKPDPZZYZTS4696-96-94 00:36:00 Test Item Value Reference Range Interpretation Comments Hct (test code = Hct) 20.6 42.0-54.0 [facility] HospitalZmcxdkfUXWCIVBFBI8243-95-83 00:36:00 Test Item Value Reference Range Interpretation Comments MCV (test code = MCV) 105.0 80.0-94.0 [facility] HospitalDaiakvwVFLMJICORP8318-55-03 00:36:00 Test Item Value Reference Range Interpretation Comments MCH (test code = MCH) 36.2 pg 27.0-31.0 [facility] HospitalKukivpmQZEDHMVYSK1082-98-61 00:36:00 Test Item Value Reference Range Interpretation Comments MCHC (test code = MCHC) 34.5 32.0-36.0 [facility] HospitalKsbngohTHOCLXBIGU0035-19-09 00:36:00 Test Item Value Reference Range Interpretation Comments RDW (test code = RDW) 21.1 11.5-14.5 [facility] HospitalIrjkayzBEHRPTMFIL3887-59-33 00:36:00 Test Item Value Reference Range Interpretation Comments MPV (test code = MPV) 8.7 7.4-10.4 [facility] HospitalAwqlfwbOODPCLSMGL2820-79-81 00:36:00 Test Item Value Reference Range Interpretation Comments Platelet (test code = Platelet) 136 133-450 [facility] HospitalQgdabwzULNVMIFOEM3146-14-03 00:36:00 Test Item Value Reference Range Interpretation Comments MPV (test code = MPV) 8.7 7.4-10.4 [facility] HospitalThhshjjSBVPXZKXPV2802-12-20 00:36:00 Test Item Value Reference Range Interpretation Comments Segs (test code = Segs) 59.5 45.0-75.0 [facility] HospitalYmigcrcPWRYRSCNXH9973-42-82 00:36:00 Test Item Value Reference Range Interpretation Comments Lymphocytes (test code = Lymphocytes) 25.2 20.0-40.0 [facility] HospitalVuujjvcFQVBBZVJGY8273-86-38 00:36:00 Test Item Value Reference Range Interpretation Comments Monocytes (test code = Monocytes) 12.5 2.0-12.0 [place] 264282-07-07 00:36:00 Test Item Value Reference Range Interpretation Comments Eosinophils (test code = 2.1 See_Comment [A utomated message] The Eosinophils) system which ge nerated this result tra nsmitted reference range : <=4.0. The reference r samantha was not used to int erpret this result as normal/abnormal . [facility] HospitalAxpvndgLBUCIWGNWR4194-67-08 00:36:00 Test Item Value Reference Range Interpretation Comments Basophils (test code = 0.7 See_Comment [Aut omated message] The Basophils) system which ge nerated this result tra nsmitted reference range : <=1.0. The reference r samantha was not used to int erpret this result as normal/abnormal . [facility] HospitalLqafmhxWWKRXZSUGI7262-91-30 00:36:00 Test Item Value Reference Range Interpretation Comments Neutrophils # (test code = Neutrophils 1.5 1.5-8.1 #) [facility] HospitalYnxiqeaVBTYYLVKIO2816-41-59 00:36:00 Test Item Value Reference Range Interpretation Comments Lymphocytes # (test code = Lymphocytes 0.6 1.0-5.5 #) [facility] HospitalTtxnebnINAKWZATYZ9819-38-25 00:36:00 Test Item Value Reference Range Interpretation Comments Monocytes # (test code 0.3 See_Comment [Aut omated message] The = Monocytes #) system which generated this result tra nsmitted reference range : <=0.8. The reference r samantha was not used to int erpret this result as normal/abnormal . [facility] HospitalTaverdpCNEHULZQNO0701-82-97 00:36:00 Test Item Value Reference Range Interpretation Comments Segs (test code = Segs) 59.5 45.0-75.0 [facility] HospitalEmbsiwnRVJIIBQFKY8155-16-59 00:36:00 Test Item Value Reference Range Interpretation Comments Eosinophils # (test code 0.1 See_Comment [A utomated message] The = Eosinophils #) system whic h generated this result tra nsmitted reference range : <=0.5. The reference r samantha was not used to int erpret this result as normal/abnormal . [facility] HospitalRogqoilXZBSQJPGCC6698-01-71 00:36:00 Test Item Value Reference Range Interpretation Comments Lymphocytes (test code = Lymphocytes) 25.2 20.0-40.0 [facility] HospitalJjvmdpkPFLLBNRCOF3868-31-58 00:36:00 Test Item Value Reference Range Interpretation Comments Monocytes (test code = Monocytes) 12.5 2.0-12.0 [facility]UmzvsukUKYXTFXKYS4527-72-25 00:36:00 Test Item Value Reference Range Interpretation Comments Eosinophils (test code = 2.1 See_Comment [A utomated message] The Eosinophils) system which ge nerated this result tra nsmitted reference range : <=4.0. The reference r samantha was not used to int erpret this result as normal/abnormal . [facility]GyiwdhlCGCVQSHKNL8494-59-33 00:36:00 Test Item Value Reference Range Interpretation Comments Basophils (test code = 0.7 See_Comment [Aut omated message] The Basophils) system which ge nerated this result tra nsmitted reference range : <=1.0. The reference r samantha was not used to int erpret this result as normal/abnormal . [facility]evilleMvwxeojMOKCGWRAKB6957-61-83 00:36:00 Test Item Value Reference Range Interpretation Comments Neutrophils # (test code = Neutrophils 1.5 1.5-8.1 #) [facility]evilleMrmuqjkBQHRSIIQUI8962-36-08 00:36:00 Test Item Value Reference Range Interpretation Comments Lymphocytes # (test code = Lymphocytes 0.6 1.0-5.5 #) [facility]evilleYqwqeyzHKULDZZMHJ6255-32-19 00:36:00 Test Item Value Reference Range Interpretation Comments Monocytes # (test code 0.3 See_Comment [Aut omated message] The = Monocytes #) system which generated this result tra nsmitted reference range : <=0.8. The reference r samantha was not used to int erpret this result as normal/abnormal . [facility] BeevilleErxyvtzKDYNFDPCQK4106-03-35 00:36:00 Test Item Value Reference Range Interpretation Comments Eosinophils # (test code 0.1 See_Comment [A utomated message] The = Eosinophils #) system whic h generated this result tra nsmitted reference range : <=0.5. The reference r samantha was not used to int erpret this result as normal/abnormal . [facility] [employer] QBSPMQF7516-07-83 00:36:00 Test Item Value Reference Range Interpretation Comments ABO/Rh (test code = ABO/Rh) AB POS [facility] [employer] SFEAECY7940-56-02 00:36:00 Test Item Value Reference Range Interpretation Comments Antibody Scrn (test Negative (12/03/21 7:36 code = Antibody Scrn) PM) [place] 412362-07-07 00:36:00 Test Item Value Reference Range Interpretation Comments Glucose Lvl (test code = Glucose Lvl) 143 70-99 [place] 412362-07-07 00:36:00 Test Item Value Reference Range Interpretation Comments BUN (test code = BUN) 39 7-22 [place] 412362-07-07 00:36:00 Test Item Value Reference Range Interpretation Comments Creatinine Lvl (test code = Creatinine 5.46 0.50-1.40 Lvl) [place] 412362-07-07 00:36:00 Test Item Value Reference Range Interpretation Comments Sodium Lvl (test code = Sodium Lvl) 136 135-145 [place] 412362-07-07 00:36:00 Test Item Value Reference Range Interpretation Comments Potassium Lvl (test code = Potassium 4.2 3.5-5.1 Lvl) [place] 412362-07-07 00:36:00 Test Item Value Reference Range Interpretation Comments Chloride Lvl (test code = Chloride Lvl) 100 95-109 [place] 412362-07-07 00:36:00 Test Item Value Reference Range Interpretation Comments CO2 (test code = CO2) 27 24-32 [place] 412362-07-07 00:36:00 Test Item Value Reference Range Interpretation Comments Calcium Lvl (test code = Calcium Lvl) 8.9 8.5-10.5 [place] 412362-07-07 00:36:00 Test Item Value Reference Range Interpretation Comments AGAP (test code = AGAP) 13.2 10.0-20.0 [place] 412362-07-07 00:36:00 Test Item Value Reference Range Interpretation Comments eGFR (test code = eGFR) 10 [place] 264282-07-07 00:36:00 Test Item Value Reference Range Interpretation Comments WBC (test code = WBC) 2.5 3.7-10.4 [place] 264282-07-07 00:36:00 Test Item Value Reference Range Interpretation Comments RBC (test code = RBC) 1.97 4.70-6.10 [place] 264282-07-07 00:36:00 Test Item Value Reference Range Interpretation Comments Hgb (test code = Hgb) 7.1 14.0-18.0 [facility] HospitalVmyuziqDLVIJITSQY4086-19-23 00:36:00 Test Item Value Reference Range Interpretation Comments Hct (test code = Hct) 20.6 42.0-54.0 [facility] HospitalBokedhuXVNWKNKRKY3819-02-93 00:36:00 Test Item Value Reference Range Interpretation Comments MCV (test code = MCV) 105.0 80.0-94.0 [facility] HospitalSxiosfjKZEFJYXWGS8425-60-94 00:36:00 Test Item Value Reference Range Interpretation Comments MCH (test code = MCH) 36.2 pg 27.0-31.0 [facility] HospitalNahxaopFTFJSVHTJZ3857-00-46 00:36:00 Test Item Value Reference Range Interpretation Comments MCHC (test code = MCHC) 34.5 32.0-36.0 [facility] HospitalQejprjdNJUSXJEOVZ0860-31-63 00:36:00 Test Item Value Reference Range Interpretation Comments RDW (test code = RDW) 21.1 11.5-14.5 [facility] HospitalKimjeexIGRDKMLEAF2155-54-03 00:36:00 Test Item Value Reference Range Interpretation Comments Platelet (test code = Platelet) 136 133-450 [facility] HospitalLfhekbzXADUVOCIWQ9789-13-34 00:36:00 Test Item Value Reference Range Interpretation Comments MPV (test code = MPV) 8.7 7.4-10.4 [facility] HospitalFuetelqMQRFVUHWOS3776-92-61 00:36:00 Test Item Value Reference Range Interpretation Comments Segs (test code = Segs) 59.5 45.0-75.0 [facility] HospitalIzpjtmcSYEXVLRBVV7486-47-96 00:36:00 Test Item Value Reference Range Interpretation Comments Lymphocytes (test code = Lymphocytes) 25.2 20.0-40.0 [place] 264282-07-07 00:36:00 Test Item Value Reference Range Interpretation Comments Monocytes (test code = Monocytes) 12.5 2.0-12.0 [place] 264282-07-07 00:36:00 Test Item Value Reference Range Interpretation Comments Eosinophils (test code = 2.1 See_Comment [A utomated message] The Eosinophils) system which ge nerated this result tra nsmitted reference range : <=4.0. The reference r samantha was not used to int erpret this result as normal/abnormal . [place] 264282-07-07 00:36:00 Test Item Value Reference Range Interpretation Comments Basophils (test code = 0.7 See_Comment [Aut omated message] The Basophils) system which ge nerated this result tra nsmitted reference range : <=1.0. The reference r samantha was not used to int erpret this result as normal/abnormal . [facility] HospitalPuwpwayKZNOYNQWLN2520-13-03 00:36:00 Test Item Value Reference Range Interpretation Comments Neutrophils # (test code = Neutrophils 1.5 1.5-8.1 #) [facility] HospitalLfwoxfsXFZGGYMFXJ3394-47-98 00:36:00 Test Item Value Reference Range Interpretation Comments Lymphocytes # (test code = Lymphocytes 0.6 1.0-5.5 #) [facility] HospitalHkbpgdeMYRKYGQKGV8230-73-08 00:36:00 Test Item Value Reference Range Interpretation Comments Monocytes # (test code 0.3 See_Comment [Aut omated message] The = Monocytes #) system which generated this result tra nsmitted reference range : <=0.8. The reference r samantha was not used to int erpret this result as normal/abnormal . [facility] HospitalThbunfuLFAEEPVVJW2125-55-10 00:36:00 Test Item Value Reference Range Interpretation Comments Eosinophils # (test code 0.1 See_Comment [A utomated message] The = Eosinophils #) system whic h generated this result tra nsmitted reference range : <=0.5. The reference r samantha was not used to int erpret this result as normal/abnormal . [facility] [id number] 00:36:00 Test Item Value Reference Range Interpretation Comments ABO/Rh (test code = ABO/Rh) AB POS [facility] [id number] 00:36:00 Test Item Value Reference Range Interpretation Comments Antibody Scrn (test Negative (12/03/21 7:36 code = Antibody Scrn) PM) [facility] [id number] 00:36:00 Test Item Value Reference Range Interpretation Comments Glucose Lvl (test code = Glucose Lvl) 143 70-99 [facility] [id number] 00:36:00 Test Item Value Reference Range Interpretation Comments BUN (test code = BUN) 39 7-22 [facility] [id number] 00:36:00 Test Item Value Reference Range Interpretation Comments Creatinine Lvl (test code = Creatinine 5.46 0.50-1.40 Lvl) [facility]2022-07-07 00:36:00 Test Item Value Reference Range Interpretation Comments Sodium Lvl (test code = Sodium Lvl) 136 135-145 [place] 412362-07-07 00:36:00 Test Item Value Reference Range Interpretation Comments Potassium Lvl (test code = Potassium 4.2 3.5-5.1 Lvl) [place] 412362-07-07 00:36:00 Test Item Value Reference Range Interpretation Comments Chloride Lvl (test code = Chloride Lvl) 100 95-109 [place] 412362-07-07 00:36:00 Test Item Value Reference Range Interpretation Comments CO2 (test code = CO2) 27 24-32 [place] 412362-07-07 00:36:00 Test Item Value Reference Range Interpretation Comments Calcium Lvl (test code = Calcium Lvl) 8.9 8.5-10.5 [place] 412362-07-07 00:36:00 Test Item Value Reference Range Interpretation Comments AGAP (test code = AGAP) 13.2 10.0-20.0 [place] 412362-07-07 00:36:00 Test Item Value Reference Range Interpretation Comments eGFR (test code = eGFR) 10 [facility]jclandHOXEYLIMMU5515[facility] 00:36:00 Test Item Value Reference Range Interpretation Comments WBC (test code = WBC) 2.5 3.7-10.4 [place] 264282-07-07 00:36:00 Test Item Value Reference Range Interpretation Comments RBC (test code = RBC) 1.97 4.70-6.10 [place] 264282-07-07 00:36:00 Test Item Value Reference Range Interpretation Comments Hgb (test code = Hgb) 7.1 14.0-18.0 [place] 264282-07-07 00:36:00 Test Item Value Reference Range Interpretation Comments Hct (test code = Hct) 20.6 42.0-54.0 [place] 264282-07-07 00:36:00 Test Item Value Reference Range Interpretation Comments MCV (test code = MCV) 105.0 80.0-94.0 [place] 264282-07-07 00:36:00 Test Item Value Reference Range Interpretation Comments MCH (test code = MCH) 36.2 pg 27.0-31.0 [facility] HospitalKfajulfLNBWRZWYDV1392-22-27 00:36:00 Test Item Value Reference Range Interpretation Comments MCHC (test code = MCHC) 34.5 32.0-36.0 [facility] HospitalAqcrdtuVJMZOYUWWB6001-20-57 00:36:00 Test Item Value Reference Range Interpretation Comments RDW (test code = RDW) 21.1 11.5-14.5 [place] 264282-07-07 00:36:00 Test Item Value Reference Range Interpretation Comments Platelet (test code = Platelet) 136 133-450 [facility] HospitalFslxolhIMDMNDFFDO3513-10-09 00:36:00 Test Item Value Reference Range Interpretation Comments MPV (test code = MPV) 8.7 7.4-10.4 [facility] HospitalDlleastGQZDXWXPVI5742-28-77 00:36:00 Test Item Value Reference Range Interpretation Comments Segs (test code = Segs) 59.5 45.0-75.0 [facility] HospitalTqqnsabYHFZLGPMTZ5794-55-86 00:36:00 Test Item Value Reference Range Interpretation Comments Lymphocytes (test code = Lymphocytes) 25.2 20.0-40.0 [place] 264282-07-07 00:36:00 Test Item Value Reference Range Interpretation Comments Monocytes (test code = Monocytes) 12.5 2.0-12.0 [facility] HospitalUotuatcISMWEZWOMU0908-55-86 00:36:00 Test Item Value Reference Range Interpretation Comments Eosinophils (test code = 2.1 See_Comment [A utomated message] The Eosinophils) system which ge nerated this result tra nsmitted reference range : <=4.0. The reference r samantha was not used to int erpret this result as normal/abnormal . [place] 264282-07-07 00:36:00 Test Item Value Reference Range Interpretation Comments Basophils (test code = 0.7 See_Comment [Aut omated message] The Basophils) system which ge nerated this result tra nsmitted reference range : <=1.0. The reference r samantha was not used to int erpret this result as normal/abnormal . [place] 264282-07-07 00:36:00 Test Item Value Reference Range Interpretation Comments Neutrophils # (test code = Neutrophils 1.5 1.5-8.1 #) [facility] HospitalIrvtjjpGMHAXMSBNE5213-82-78 00:36:00 Test Item Value Reference Range Interpretation Comments Lymphocytes # (test code = Lymphocytes 0.6 1.0-5.5 #) [facility] HospitalMquhxwsDPNRANXIDU1783-45-62 00:36:00 Test Item Value Reference Range Interpretation Comments Monocytes # (test code 0.3 See_Comment [Aut omated message] The = Monocytes #) system which generated this result tra nsmitted reference range : <=0.8. The reference r samantha was not used to int erpret this result as normal/abnormal . [facility]fycvfzBNUNOWUCBH3403-45-75 00:36:00 Test Item Value Reference Range Interpretation Comments Eosinophils # (test code 0.1 See_Comment [A utomated message] The = Eosinophils #) system whic h generated this result tra nsmitted reference range : <=0.5. The reference r samantha was not used to int erpret this result as normal/abnormal . [facility] [id number] 00:36:00 Test Item Value Reference Range Interpretation Comments ABO/Rh (test code = ABO/Rh) AB POS [facility] [employer] [id number] 00:36:00 Test Item Value Reference Range Interpretation Comments Antibody Scrn (test Negative (12/03/21 7:36 code = Antibody Scrn) PM) [facility] [id number] 00:36:00 Test Item Value Reference Range Interpretation Comments Glucose Lvl (test code = Glucose Lvl) 143 70-99 [facility] [id number] 00:36:00 Test Item Value Reference Range Interpretation Comments BUN (test code = BUN) 39 7-22 [facility] [id number] 00:36:00 Test Item Value Reference Range Interpretation Comments Creatinine Lvl (test code = Creatinine 5.46 0.50-1.40 Lvl) [facility] [id number] 00:36:00 Test Item Value Reference Range Interpretation Comments Sodium Lvl (test code = Sodium Lvl) 136 135-145 [facility] [id number] 00:36:00 Test Item Value Reference Range Interpretation Comments Potassium Lvl (test code = Potassium 4.2 3.5-5.1 Lvl) [facility]2022-07-07 00:36:00 Test Item Value Reference Range Interpretation Comments Chloride Lvl (test code = Chloride Lvl) 100 95-109 [facility]2022-07-07 00:36:00 Test Item Value Reference Range Interpretation Comments CO2 (test code = CO2) 27 24-32 [place] 412362-07-07 00:36:00 Test Item Value Reference Range Interpretation Comments Calcium Lvl (test code = Calcium Lvl) 8.9 8.5-10.5 [place] 412362-07-07 00:36:00 Test Item Value Reference Range Interpretation Comments AGAP (test code = AGAP) 13.2 10.0-20.0 [place] 412362-07-07 00:36:00 Test Item Value Reference Range Interpretation Comments eGFR (test code = eGFR) 10 [place] 264282-07-07 00:36:00 Test Item Value Reference Range Interpretation Comments WBC (test code = WBC) 2.5 3.7-10.4 [place] 264282-07-07 00:36:00 Test Item Value Reference Range Interpretation Comments RBC (test code = RBC) 1.97 4.70-6.10 [facility] HospitalFsnmdcaSDDFIVSUJW7492-87-18 00:36:00 Test Item Value Reference Range Interpretation Comments Hgb (test code = Hgb) 7.1 14.0-18.0 [place] 264282-07-07 00:36:00 Test Item Value Reference Range Interpretation Comments Hct (test code = Hct) 20.6 42.0-54.0 [place] 264282-07-07 00:36:00 Test Item Value Reference Range Interpretation Comments MCV (test code = MCV) 105.0 80.0-94.0 [place] 264282-07-07 00:36:00 Test Item Value Reference Range Interpretation Comments MCH (test code = MCH) 36.2 pg 27.0-31.0 [place] 264282-07-07 00:36:00 Test Item Value Reference Range Interpretation Comments MCHC (test code = MCHC) 34.5 32.0-36.0 [place] 264282-07-07 00:36:00 Test Item Value Reference Range Interpretation Comments RDW (test code = RDW) 21.1 11.5-14.5 [facility] HospitalWjjkpcjEGEZUIICGY4801-88-91 00:36:00 Test Item Value Reference Range Interpretation Comments Platelet (test code = Platelet) 136 133-450 [place] 264282-07-07 00:36:00 Test Item Value Reference Range Interpretation Comments MPV (test code = MPV) 8.7 7.4-10.4 [place] 264282-07-07 00:36:00 Test Item Value Reference Range Interpretation Comments Segs (test code = Segs) 59.5 45.0-75.0 [place] 264282-07-07 00:36:00 Test Item Value Reference Range Interpretation Comments Lymphocytes (test code = Lymphocytes) 25.2 20.0-40.0 [place] 264282-07-07 00:36:00 Test Item Value Reference Range Interpretation Comments Monocytes (test code = Monocytes) 12.5 2.0-12.0 [place] 264282-07-07 00:36:00 Test Item Value Reference Range Interpretation Comments Eosinophils (test code = 2.1 See_Comment [A utomated message] The Eosinophils) system which ge nerated this result tra nsmitted reference range : <=4.0. The reference r samantha was not used to int erpret this result as normal/abnormal . [place] 264282-07-07 00:36:00 Test Item Value Reference Range Interpretation Comments Basophils (test code = 0.7 See_Comment [Aut omated message] The Basophils) system which ge nerated this result tra nsmitted reference range : <=1.0. The reference r samantha was not used to int erpret this result as normal/abnormal . [facility] HospitalYtcvxfgQRHGTCRNLS0503-56-66 00:36:00 Test Item Value Reference Range Interpretation Comments Neutrophils # (test code = Neutrophils 1.5 1.5-8.1 #) [facility] HospitalYgwfkszEBRLEFHGIA9134-25-04 00:36:00 Test Item Value Reference Range Interpretation Comments Lymphocytes # (test code = Lymphocytes 0.6 1.0-5.5 #) [facility] HospitalRlecgywVFGIURFDUX9737-52-40 00:36:00 Test Item Value Reference Range Interpretation Comments Monocytes # (test code 0.3 See_Comment [Aut omated message] The = Monocytes #) system which generated this result tra nsmitted reference range : <=0.8. The reference r samantha was not used to int erpret this result as normal/abnormal . [facility] HospitalVdqvqicIZRIEVDCLK6124-64-52 00:36:00 Test Item Value Reference Range Interpretation Comments Eosinophils # (test code 0.1 See_Comment [A utomated message] The = Eosinophils #) system whic h generated this result tra nsmitted reference range : <=0.5. The reference r samantha was not used to int erpret this result as normal/abnormal . [facility] [employer] [id number] 00:36:00 Test Item Value Reference Range Interpretation Comments ABO/Rh (test code = ABO/Rh) AB POS [facility] [employer] [id number] 00:36:00 Test Item Value Reference Range Interpretation Comments Antibody Scrn (test Negative (12/03/21 7:36 code = Antibody Scrn) PM) [facility] [employer] [id number] 00:36:00 Test Item Value Reference Range Interpretation Comments Glucose Lvl (test code = Glucose Lvl) 143 70-99 [facility] [employer] [id number] 00:36:00 Test Item Value Reference Range Interpretation Comments BUN (test code = BUN) 39 7-22 [facility] [employer] [id number] 00:36:00 Test Item Value Reference Range Interpretation Comments Creatinine Lvl (test code = Creatinine 5.46 0.50-1.40 Lvl) [facility] [employer] [id number] 00:36:00 Test Item Value Reference Range Interpretation Comments Sodium Lvl (test code = Sodium Lvl) 136 135-145 [facility] [employer] [id number] 00:36:00 Test Item Value Reference Range Interpretation Comments Potassium Lvl (test code = Potassium 4.2 3.5-5.1 Lvl) [facility] [employer] [id number] 00:36:00 Test Item Value Reference Range Interpretation Comments Chloride Lvl (test code = Chloride Lvl) 100 95-109 [facility] [employer] [id number] 00:36:00 Test Item Value Reference Range Interpretation Comments CO2 (test code = CO2) 27 24-32 [facility]2022-07-07 00:36:00 Test Item Value Reference Range Interpretation Comments Calcium Lvl (test code = Calcium Lvl) 8.9 8.5-10.5 [facility]2022-07-07 00:36:00 Test Item Value Reference Range Interpretation Comments AGAP (test code = AGAP) 13.2 10.0-20.0 [facility]2022-07-07 00:36:00 Test Item Value Reference Range Interpretation Comments eGFR (test code = eGFR) 10 [facility] HospitalOtragakMDJZHLFRKG2445-53-25 00:36:00 Test Item Value Reference Range Interpretation Comments WBC (test code = WBC) 2.5 3.7-10.4 [facility] HospitalCamiitsSGNWNRQKNM1802-96-89 00:36:00 Test Item Value Reference Range Interpretation Comments RBC (test code = RBC) 1.97 4.70-6.10 [facility] HospitalNgydibrVBEMWVMQIM5979-52-39 00:36:00 Test Item Value Reference Range Interpretation Comments Hgb (test code = Hgb) 7.1 14.0-18.0 [facility] HospitalKuggozvXEZUYZJPVB7734-28-24 00:36:00 Test Item Value Reference Range Interpretation Comments Hct (test code = Hct) 20.6 42.0-54.0 [facility] HospitalGaifeavQRBPEOAGII9735-15-96 00:36:00 Test Item Value Reference Range Interpretation Comments MCV (test code = MCV) 105.0 80.0-94.0 [facility] HospitalKzmvndtWFMZKIBVAA8661-28-55 00:36:00 Test Item Value Reference Range Interpretation Comments MCH (test code = MCH) 36.2 pg 27.0-31.0 [facility] HospitalMazetizXHJTQUTHYR5068-46-83 00:36:00 Test Item Value Reference Range Interpretation Comments MCHC (test code = MCHC) 34.5 32.0-36.0 [place] 264282-07-07 00:36:00 Test Item Value Reference Range Interpretation Comments RDW (test code = RDW) 21.1 11.5-14.5 [place] 264282-07-07 00:36:00 Test Item Value Reference Range Interpretation Comments Platelet (test code = Platelet) 136 133-450 [facility] HospitalNgxdbhdSSLONISTJX0252-58-17 00:36:00 Test Item Value Reference Range Interpretation Comments MPV (test code = MPV) 8.7 7.4-10.4 [place] 264282-07-07 00:36:00 Test Item Value Reference Range Interpretation Comments Segs (test code = Segs) 59.5 45.0-75.0 [place] 264282-07-07 00:36:00 Test Item Value Reference Range Interpretation Comments Lymphocytes (test code = Lymphocytes) 25.2 20.0-40.0 [place] 264282-07-07 00:36:00 Test Item Value Reference Range Interpretation Comments Monocytes (test code = Monocytes) 12.5 2.0-12.0 [place] 264282-07-07 00:36:00 Test Item Value Reference Range Interpretation Comments Eosinophils (test code = 2.1 See_Comment [A utomated message] The Eosinophils) system which ge nerated this result tra nsmitted reference range : <=4.0. The reference r samantha was not used to int erpret this result as normal/abnormal . [place] 264282-07-07 00:36:00 Test Item Value Reference Range Interpretation Comments Basophils (test code = 0.7 See_Comment [Aut omated message] The Basophils) system which ge nerated this result tra nsmitted reference range : <=1.0. The reference r samantha was not used to int erpret this result as normal/abnormal . [facility] HospitalSkmstrhSURRVXCPTQ9061-89-84 00:36:00 Test Item Value Reference Range Interpretation Comments Neutrophils # (test code = Neutrophils 1.5 1.5-8.1 #) [place] 264282-07-07 00:36:00 Test Item Value Reference Range Interpretation Comments Lymphocytes # (test code = Lymphocytes 0.6 1.0-5.5 #) [place] 264282-07-07 00:36:00 Test Item Value Reference Range Interpretation Comments Monocytes # (test code 0.3 See_Comment [Aut omated message] The = Monocytes #) system which generated this result tra nsmitted reference range : <=0.8. The reference r samantha was not used to int erpret this result as normal/abnormal . [place] 264282-07-07 00:36:00 Test Item Value Reference Range Interpretation Comments Eosinophils # (test code 0.1 See_Comment [A utomated message] The = Eosinophils #) system whic h generated this result tra nsmitted reference range : <=0.5. The reference r samantha was not used to int erpret this result as normal/abnormal . [facility] [employer] [id number] 00:36:00 Test Item Value Reference Range Interpretation Comments ABO/Rh (test code = ABO/Rh) AB POS [facility] [employer] [id number] 00:36:00 Test Item Value Reference Range Interpretation Comments Antibody Scrn (test Negative (12/03/21 7:36 code = Antibody Scrn) PM) [facility] [employer] [id number] 00:36:00 Test Item Value Reference Range Interpretation Comments Glucose Lvl (test code = Glucose Lvl) 143 70-99 [facility] [employer] [id number] 00:36:00 Test Item Value Reference Range Interpretation Comments BUN (test code = BUN) 39 7-22 [facility] [employer] [id number] 00:36:00 Test Item Value Reference Range Interpretation Comments Creatinine Lvl (test code = Creatinine 5.46 0.50-1.40 Lvl) [facility] [employer] [id number] 00:36:00 Test Item Value Reference Range Interpretation Comments Sodium Lvl (test code = Sodium Lvl) 136 135-145 [facility] [employer] [id number] 00:36:00 Test Item Value Reference Range Interpretation Comments Potassium Lvl (test code = Potassium 4.2 3.5-5.1 Lvl) [facility]2022-07-07 00:36:00 Test Item Value Reference Range Interpretation Comments Chloride Lvl (test code = Chloride Lvl) 100 95-109 [facility]2022-07-07 00:36:00 Test Item Value Reference Range Interpretation Comments CO2 (test code = CO2) 27 24-32 [facility]2022-07-07 00:36:00 Test Item Value Reference Range Interpretation Comments Calcium Lvl (test code = Calcium Lvl) 8.9 8.5-10.5 [facility] [employer] [id number] 00:36:00 Test Item Value Reference Range Interpretation Comments AGAP (test code = AGAP) 13.2 10.0-20.0 [facility]2022-07-07 00:36:00 Test Item Value Reference Range Interpretation Comments eGFR (test code = eGFR) 10 [facility] HospitalVyxpbixWOEEBFOORJ6724-48-06 00:36:00 Test Item Value Reference Range Interpretation Comments WBC (test code = WBC) 2.5 3.7-10.4 [place] 264282-07-07 00:36:00 Test Item Value Reference Range Interpretation Comments RBC (test code = RBC) 1.97 4.70-6.10 [facility] HospitalMrpytoxWZBRPAYJKY5298-06-27 00:36:00 Test Item Value Reference Range Interpretation Comments Hgb (test code = Hgb) 7.1 14.0-18.0 [place] 264282-07-07 00:36:00 Test Item Value Reference Range Interpretation Comments Hct (test code = Hct) 20.6 42.0-54.0 [facility] HospitalEjzjtqpNIMCMPRLQF2550-32-09 00:36:00 Test Item Value Reference Range Interpretation Comments MCV (test code = MCV) 105.0 80.0-94.0 [place] 264282-07-07 00:36:00 Test Item Value Reference Range Interpretation Comments MCH (test code = MCH) 36.2 pg 27.0-31.0 [facility] HospitalRqevzytHXLPWFKUGY6919-22-69 00:36:00 Test Item Value Reference Range Interpretation Comments MCHC (test code = MCHC) 34.5 32.0-36.0 [facility] HospitalHacxycfFBYEEFFGZM3611-29-68 00:36:00 Test Item Value Reference Range Interpretation Comments RDW (test code = RDW) 21.1 11.5-14.5 [facility] HospitalJgrackzNPGJSAWNKK1664-82-68 00:36:00 Test Item Value Reference Range Interpretation Comments Platelet (test code = Platelet) 136 133-450 [facility] HospitalExczpbxPMLWPDEPVP4440-69-08 00:36:00 Test Item Value Reference Range Interpretation Comments MPV (test code = MPV) 8.7 7.4-10.4 [facility] HospitalWqronxyFROOROFFYN7803-64-96 00:36:00 Test Item Value Reference Range Interpretation Comments Segs (test code = Segs) 59.5 45.0-75.0 [facility] HospitalFphljsrPERBQWWFPG7710-83-76 00:36:00 Test Item Value Reference Range Interpretation Comments Lymphocytes (test code = Lymphocytes) 25.2 20.0-40.0 [facility] HospitalFtqmhafRSMXVKTZQY5266-29-91 00:36:00 Test Item Value Reference Range Interpretation Comments Monocytes (test code = Monocytes) 12.5 2.0-12.0 [facility] HospitalKxnledlFPOIANOORI7834-12-55 00:36:00 Test Item Value Reference Range Interpretation Comments Eosinophils (test code = 2.1 See_Comment [A utomated message] The Eosinophils) system which ge nerated this result tra nsmitted reference range : <=4.0. The reference r samantha was not used to int erpret this result as normal/abnormal . [facility] HospitalHuygtmnGMKLDWIBGU4520-40-22 00:36:00 Test Item Value Reference Range Interpretation Comments Basophils (test code = 0.7 See_Comment [Aut omated message] The Basophils) system which ge nerated this result tra nsmitted reference range : <=1.0. The reference r samantha was not used to int erpret this result as normal/abnormal . [facility] HospitalKesyfqvNAAMHKJLLM3586-64-94 00:36:00 Test Item Value Reference Range Interpretation Comments Neutrophils # (test code = Neutrophils 1.5 1.5-8.1 #) [facility] HospitalGnnbwaiYIXDNLDHPX4640-29-52 00:36:00 Test Item Value Reference Range Interpretation Comments Lymphocytes # (test code = Lymphocytes 0.6 1.0-5.5 #) [facility] HospitalKxgrwbvYCRMDDQTXQ1568-82-40 00:36:00 Test Item Value Reference Range Interpretation Comments Monocytes # (test code 0.3 See_Comment [Aut omated message] The = Monocytes #) system which generated this result tra nsmitted reference range : <=0.8. The reference r samantha was not used to int erpret this result as normal/abnormal . [facility] HospitalCwrwrmfEVSCXYVKAO7628-66-04 00:36:00 Test Item Value Reference Range Interpretation Comments Eosinophils # (test code 0.1 See_Comment [A utomated message] The = Eosinophils #) system whic h generated this result tra nsmitted reference range : <=0.5. The reference r samantha was not used to int erpret this result as normal/abnormal . [facility]2022-06-29 09:09:00 Test Item Value Reference Range Interpretation Comments Ferritin Lvl (test code = Ferritin Lvl) 2443 15-202 [place] 412362-06-29 09:09:00 Test Item Value Reference Range Interpretation Comments Glucose Lvl (test code = Glucose Lvl) 288 70-99 [place] 412362-06-29 09:09:00 Test Item Value Reference Range Interpretation Comments BUN (test code = BUN) 40 7-22 [place] 412362-06-29 09:09:00 Test Item Value Reference Range Interpretation Comments Creatinine Lvl (test code = Creatinine 6.23 0.50-1.40 Lvl) [place] 412362-06-29 09:09:00 Test Item Value Reference Range Interpretation Comments Sodium Lvl (test code = Sodium Lvl) 134 135-145 [place] 412362-06-29 09:09:00 Test Item Value Reference Range Interpretation Comments Potassium Lvl (test code = Potassium 4.5 3.5-5.1 Lvl) [place] 412362-06-29 09:09:00 Test Item Value Reference Range Interpretation Comments Chloride Lvl (test code = Chloride Lvl) 96 95-109 [place] 412362-06-29 09:09:00 Test Item Value Reference Range Interpretation Comments CO2 (test code = CO2) 29 24-32 [place] 412362-06-29 09:09:00 Test Item Value Reference Range Interpretation Comments AGAP (test code = AGAP) 13.5 10.0-20.0 [facility] [place]362-[place] 09:09:00 Test Item Value Reference Range Interpretation Comments Calcium Lvl (test code = Calcium Lvl) 9.1 8.5-10.5 [place] 412362-06-29 09:09:00 Test Item Value Reference Range Interpretation Comments B/C Ratio (test code = B/C Ratio) 6 1 6-25 [place]362-06-29 09:09:00 Test Item Value Reference Range Interpretation Comments Total Protein (test code = Total 6.3 6.4-8.4 Protein) [place] 412362-06-29 09:09:00 Test Item Value Reference Range Interpretation Comments Albumin Lvl (test code = Albumin Lvl) 2.5 3.5-5.0 [place]362-06-29 09:09:00 Test Item Value Reference Range Interpretation Comments Globulin (test code = Globulin) 3.8 2.7-4.2 [place] [address]267-06-29 09:09:00 Test Item Value Reference Range Interpretation Comments A/G Ratio (test code = A/G Ratio) 0.7 1 0.7-1.6 [place]362-06-29 09:09:00 Test Item Value Reference Range Interpretation Comments ALT (test code = ALT) 38 See_Comment [Auto mated message] The system which ge nerated this result transmit swathi reference range : <=65. The reference range was not used to interpr et this result as deny l/abnormal. [facility] [id number] 09:09:00 Test Item Value Reference Range Interpretation Comments AST (test code = AST) 31 See_Comment [Auto mated message] The system which ge nerated this result transmit swathi reference range : <=37. The reference range was not used to interpr et this result as deny l/abnormal. [place] 412362-06-29 09:09:00 Test Item Value Reference Range Interpretation Comments Alk Phos (test code = Alk Phos) 357 39-136 [place]362-06-29 09:09:00 Test Item Value Reference Range Interpretation Comments Bili Total (test code = Bili Total) 1.0 0.2-1.3 [place]362-06-29 09:09:00 Test Item Value Reference Range Interpretation Comments eGFR (test code = eGFR) 8 [facility] [id number] 09:09:00 Test Item Value Reference Range Interpretation Comments Magnesium Lvl (test code = Magnesium 2.0 1.8-2.4 Lvl) [place] [address]267-06-29 09:09:00 Test Item Value Reference Range Interpretation Comments LDH (test code = LDH) 251 98-192 [facility] [id number] 09:09:00 Test Item Value Reference Range Interpretation Comments Procalcitonin Lvl (test 0.51 See_Comment [Au tomated message] code = Procalcitonin Lvl) Th e system which generated this result transmitted ref erence range: <=0.10. The reference range was not used to interpr et this result as normal/abnormal . [facility]ydrcgiNTEFXAUUOB8614[facility]81-59 09:09:00 Test Item Value Reference Range Interpretation Comments D-Dimer (test code = D-Dimer) 5.06 [place] 264282-06-29 09:09:00 Test Item Value Reference Range Interpretation Comments WBC (test code = WBC) 4.8 3.7-10.4 [place] 264282-06-29 09:09:00 Test Item Value Reference Range Interpretation Comments RBC (test code = RBC) 2.14 4.70-6.10 [place] 264282-06-29 09:09:00 Test Item Value Reference Range Interpretation Comments Hgb (test code = Hgb) 7.7 14.0-18.0 [place] [address]885-06-29 09:09:00 Test Item Value Reference Range Interpretation Comments Hct (test code = Hct) 22.8 42.0-54.0 [place] 264282-06-29 09:09:00 Test Item Value Reference Range Interpretation Comments MCV (test code = MCV) 106.5 80.0-94.0 [facility] HospitalEkotfmeJCEOMVGGFK3138-53-50 09:09:00 Test Item Value Reference Range Interpretation Comments MCH (test code = MCH) 36.1 pg 27.0-31.0 [place] 264282-06-29 09:09:00 Test Item Value Reference Range Interpretation Comments MCHC (test code = MCHC) 33.9 32.0-36.0 [place] 264282-06-29 09:09:00 Test Item Value Reference Range Interpretation Comments RDW (test code = RDW) 21.8 11.5-14.5 [place] 264282-06-29 09:09:00 Test Item Value Reference Range Interpretation Comments Platelet (test code = Platelet) 176 133-450 [place] 264282-06-29 09:09:00 Test Item Value Reference Range Interpretation Comments MPV (test code = MPV) 8.2 7.4-10.4 [place] 264282-06-29 09:09:00 Test Item Value Reference Range Interpretation Comments Segs (test code = Segs) 83.6 45.0-75.0 [place] 264282-06-29 09:09:00 Test Item Value Reference Range Interpretation Comments Lymphocytes (test code = Lymphocytes) 10.7 20.0-40.0 [facility] HospitalMjukxkpPIXVEAVYIY3377-17-45 09:09:00 Test Item Value Reference Range Interpretation Comments Monocytes (test code = Monocytes) 4.9 2.0-12.0 [facility] HospitalMssxbhbTTGOKXHINU6834-61-49 09:09:00 Test Item Value Reference Range Interpretation Comments Eosinophils (test code = 0.4 See_Comment [A utomated message] The Eosinophils) system which ge nerated this result tra nsmitted reference range : <=4.0. The reference r samantha was not used to int erpret this result as normal/abnormal . [facility] HospitalFfmaowmOFQYZOHFYV8343-41-71 09:09:00 Test Item Value Reference Range Interpretation Comments Basophils (test code = 0.4 See_Comment [Aut omated message] The Basophils) system which ge nerated this result tra nsmitted reference range : <=1.0. The reference r samantha was not used to int erpret this result as normal/abnormal . [facility] HospitalKgxigwgHNDUMNUHYA4874-97-07 09:09:00 Test Item Value Reference Range Interpretation Comments Neutrophils # (test code = Neutrophils 4.0 1.5-8.1 #) [facility] HospitalNuseymfJSXUNVUYME2804-55-67 09:09:00 Test Item Value Reference Range Interpretation Comments Lymphocytes # (test code = Lymphocytes 0.5 1.0-5.5 #) [facility] HospitalIxdbamsPNKXGOLQDX8285-04-30 09:09:00 Test Item Value Reference Range Interpretation Comments Monocytes # (test code 0.2 See_Comment [Aut omated message] The = Monocytes #) system which generated this result tra nsmitted reference range : <=0.8. The reference r samantha was not used to int erpret this result as normal/abnormal . [facility] HospitalStelbrnGKFRSGLIDA8234-86-46 09:09:00 Test Item Value Reference Range Interpretation Comments Macrocyte (test code = 1+ *ABN*(11/26/21 Macrocyte) 4:09 AM) [facility]B5176[facility] 09:09:00 Test Item Value Reference Range Interpretation Comments Interleukin 6 (test code = Interleukin 14.71 6) [place] 007042-06-29 09:09:00 Test Item Value Reference Range Interpretation Comments C-REACTIVE PROTEIN (test code = 95.9 C-REACTIVE PROTEIN) [facility]2022-06-29 09:09:00 Test Item Value Reference Range Interpretation Comments Ferritin Lvl (test code = Ferritin Lvl) 1543 22275 [place] 412362-06-29 09:09:00 Test Item Value Reference Range Interpretation Comments Glucose Lvl (test code = Glucose Lvl) 288 70-99 [place]362-06-29 09:09:00 Test Item Value Reference Range Interpretation Comments BUN (test code = BUN) 40 7-22 [place] 412362-06-29 09:09:00 Test Item Value Reference Range Interpretation Comments Creatinine Lvl (test code = Creatinine 6.23 0.50-1.40 Lvl) [place]362-06-29 09:09:00 Test Item Value Reference Range Interpretation Comments Sodium Lvl (test code = Sodium Lvl) 134 135-145 [place]362-06-29 09:09:00 Test Item Value Reference Range Interpretation Comments Potassium Lvl (test code = Potassium 4.5 3.5-5.1 Lvl) [place]362-06-29 09:09:00 Test Item Value Reference Range Interpretation Comments Chloride Lvl (test code = Chloride Lvl) 96 95-109 [place]362-06-29 09:09:00 Test Item Value Reference Range Interpretation Comments CO2 (test code = CO2) 29 24-32 [place]362-06-29 09:09:00 Test Item Value Reference Range Interpretation Comments AGAP (test code = AGAP) 13.5 10.0-20.0 [place]362-06-29 09:09:00 Test Item Value Reference Range Interpretation Comments Calcium Lvl (test code = Calcium Lvl) 9.1 8.5-10.5 [place]362-06-29 09:09:00 Test Item Value Reference Range Interpretation Comments B/C Ratio (test code = B/C Ratio) 6 1 6-25 [place]362-06-29 09:09:00 Test Item Value Reference Range Interpretation Comments Total Protein (test code = Total 6.3 6.4-8.4 Protein) [place] 412362-06-29 09:09:00 Test Item Value Reference Range Interpretation Comments Albumin Lvl (test code = Albumin Lvl) 2.5 3.5-5.0 [place]362-06-29 09:09:00 Test Item Value Reference Range Interpretation Comments Globulin (test code = Globulin) 3.8 2.7-4.2 [place]362-06-29 09:09:00 Test Item Value Reference Range Interpretation Comments A/G Ratio (test code = A/G Ratio) 0.7 1 0.7-1.6 [place] [address]267-06-29 09:09:00 Test Item Value Reference Range Interpretation Comments ALT (test code = ALT) 38 See_Comment [Auto mated message] The system which ge nerated this result transmit swathi reference range : <=65. The reference range was not used to interpr et this result as deny l/abnormal. [facility] [id number] 09:09:00 Test Item Value Reference Range Interpretation Comments AST (test code = AST) 31 See_Comment [Auto mated message] The system which ge nerated this result transmit swathi reference range : <=37. The reference range was not used to interpr et this result as deny l/abnormal. [facility] [id number] 09:09:00 Test Item Value Reference Range Interpretation Comments Alk Phos (test code = Alk Phos) 357 39-136 [facility] [id number] 09:09:00 Test Item Value Reference Range Interpretation Comments Bili Total (test code = Bili Total) 1.0 0.2-1.3 [facility] DYAUQ3623-27-00 09:09:00 Test Item Value Reference Range Interpretation Comments eGFR (test code = eGFR) 8 [facility] QUMWK5518-02-19 09:09:00 Test Item Value Reference Range Interpretation Comments Magnesium Lvl (test code = Magnesium 2.0 1.8-2.4 Lvl) [place]362-06-29 09:09:00 Test Item Value Reference Range Interpretation Comments LDH (test code = LDH) 251 98-192 [facility] RJDVX4186-02-00 09:09:00 Test Item Value Reference Range Interpretation Comments Procalcitonin Lvl (test 0.51 See_Comment [Au tomated message] code = Procalcitonin Lvl) Th e system which generated this result transmitted ref erence range: <=0.10. The reference range was not used to interpr et this result as normal/abnormal . [facility] HospitalUljdfzeXTZHQTKGVU0868-11-49 09:09:00 Test Item Value Reference Range Interpretation Comments D-Dimer (test code = D-Dimer) 5.06 [facility] HospitalEizomxkLKEOCVLFZD7745-44-90 09:09:00 Test Item Value Reference Range Interpretation Comments WBC (test code = WBC) 4.8 3.7-10.4 [facility] HospitalZrswpdxGYFOFEAZLZ3165-05-22 09:09:00 Test Item Value Reference Range Interpretation Comments RBC (test code = RBC) 2.14 4.70-6.10 [facility] HospitalGgvbkfuVLNRNTFXDY1922-27-07 09:09:00 Test Item Value Reference Range Interpretation Comments Hgb (test code = Hgb) 7.7 14.0-18.0 [facility] HospitalVycabafAPRQXNABFP9397-80-36 09:09:00 Test Item Value Reference Range Interpretation Comments Hct (test code = Hct) 22.8 42.0-54.0 [facility] HospitalUwygwolCHAUPEGHUN0395-14-77 09:09:00 Test Item Value Reference Range Interpretation Comments MCV (test code = MCV) 106.5 80.0-94.0 [facility] HospitalUpenlfkIRBTREGMWK6314-49-43 09:09:00 Test Item Value Reference Range Interpretation Comments MCH (test code = MCH) 36.1 pg 27.0-31.0 [facility] HospitalYyudkqpXLLJXTAUCV0043-18-49 09:09:00 Test Item Value Reference Range Interpretation Comments MCHC (test code = MCHC) 33.9 32.0-36.0 [facility] HospitalYqtqmgiVFARMKHDBV4665-37-82 09:09:00 Test Item Value Reference Range Interpretation Comments RDW (test code = RDW) 21.8 11.5-14.5 [facility] HospitalCdicacnOTUZXVVHUS5510-90-69 09:09:00 Test Item Value Reference Range Interpretation Comments Platelet (test code = Platelet) 176 133-450 [facility] HospitalMwuwufaKGCALACNSM5912-91-87 09:09:00 Test Item Value Reference Range Interpretation Comments MPV (test code = MPV) 8.2 7.4-10.4 [place] 264282-06-29 09:09:00 Test Item Value Reference Range Interpretation Comments Segs (test code = Segs) 83.6 45.0-75.0 [facility] HospitalDbhfzpkHQQRWHLEHI6962-27-50 09:09:00 Test Item Value Reference Range Interpretation Comments Lymphocytes (test code = Lymphocytes) 10.7 20.0-40.0 [facility] HospitalVnciwbiDZSSIPBNPH0218-60-48 09:09:00 Test Item Value Reference Range Interpretation Comments Monocytes (test code = Monocytes) 4.9 2.0-12.0 [facility] HospitalZamlqagLWVZTPTIGZ5936-23-20 09:09:00 Test Item Value Reference Range Interpretation Comments Eosinophils (test code = 0.4 See_Comment [A utomated message] The Eosinophils) system which ge nerated this result tra nsmitted reference range : <=4.0. The reference r samantha was not used to int erpret this result as normal/abnormal . [facility] HospitalQlvxcwdAOQEXXJNTG7460-32-89 09:09:00 Test Item Value Reference Range Interpretation Comments Basophils (test code = 0.4 See_Comment [Aut omated message] The Basophils) system which ge nerated this result tra nsmitted reference range : <=1.0. The reference r samantha was not used to int erpret this result as normal/abnormal . [facility] HospitalNvuekxjBQETYNKSJH5186-94-63 09:09:00 Test Item Value Reference Range Interpretation Comments Neutrophils # (test code = Neutrophils 4.0 1.5-8.1 #) [facility] HospitalLppvcbzHDWJXTCHPV9013-31-68 09:09:00 Test Item Value Reference Range Interpretation Comments Lymphocytes # (test code = Lymphocytes 0.5 1.0-5.5 #) [facility] HospitalRkuyfsvUYVODYZANO3423-63-51 09:09:00 Test Item Value Reference Range Interpretation Comments Monocytes # (test code 0.2 See_Comment [Aut omated message] The = Monocytes #) system which generated this result tra nsmitted reference range : <=0.8. The reference r samantha was not used to int erpret this result as normal/abnormal . [facility] HospitalXnkygncYEMEXIGXYI8958-68-26 09:09:00 Test Item Value Reference Range Interpretation Comments Macrocyte (test code = 1+ *ABN*(11/26/21 Macrocyte) 4:09 AM) [facility]ZuxuclxSDJVNBVPMK7429-26-18 09:09:00 Test Item Value Reference Range Interpretation Comments Interleukin 6 (test code = Interleukin 14.71 6) [place] 007042-06-29 09:09:00 Test Item Value Reference Range Interpretation Comments C-REACTIVE PROTEIN (test code = 95.9 C-REACTIVE PROTEIN) [facility]2022-06-29 09:09:00 Test Item Value Reference Range Interpretation Comments Ferritin Lvl (test code = Ferritin Lvl) 1543 22-275 [place] 412362-06-29 09:09:00 Test Item Value Reference Range Interpretation Comments Glucose Lvl (test code = Glucose Lvl) 288 70-99 [place] 412362-06-29 09:09:00 Test Item Value Reference Range Interpretation Comments BUN (test code = BUN) 40 7-22 [place]362-06-29 09:09:00 Test Item Value Reference Range Interpretation Comments Creatinine Lvl (test code = Creatinine 6.23 0.50-1.40 Lvl) [place]362-06-29 09:09:00 Test Item Value Reference Range Interpretation Comments Sodium Lvl (test code = Sodium Lvl) 134 135-145 [place] 412362-06-29 09:09:00 Test Item Value Reference Range Interpretation Comments Potassium Lvl (test code = Potassium 4.5 3.5-5.1 Lvl) [place]362-06-29 09:09:00 Test Item Value Reference Range Interpretation Comments Chloride Lvl (test code = Chloride Lvl) 96 95-109 [place] 412362-06-29 09:09:00 Test Item Value Reference Range Interpretation Comments CO2 (test code = CO2) 29 24-32 [place] 412362-06-29 09:09:00 Test Item Value Reference Range Interpretation Comments AGAP (test code = AGAP) 13.5 10.0-20.0 [place]362-06-29 09:09:00 Test Item Value Reference Range Interpretation Comments Calcium Lvl (test code = Calcium Lvl) 9.1 8.5-10.5 [place]362-06-29 09:09:00 Test Item Value Reference Range Interpretation Comments B/C Ratio (test code = B/C Ratio) 6 1 6-25 [place] 412362-06-29 09:09:00 Test Item Value Reference Range Interpretation Comments Total Protein (test code = Total 6.3 6.4-8.4 Protein) [place] 412362-06-29 09:09:00 Test Item Value Reference Range Interpretation Comments Albumin Lvl (test code = Albumin Lvl) 2.5 3.5-5.0 [place] 412362-06-29 09:09:00 Test Item Value Reference Range Interpretation Comments Globulin (test code = Globulin) 3.8 2.7-4.2 [place] 412362-06-29 09:09:00 Test Item Value Reference Range Interpretation Comments A/G Ratio (test code = A/G Ratio) 0.7 1 0.7-1.6 [place]362-06-29 09:09:00 Test Item Value Reference Range Interpretation Comments ALT (test code = ALT) 38 See_Comment [Auto mated message] The system which ge nerated this result transmit swathi reference range : <=65. The reference range was not used to interpr et this result as deny l/abnormal. [place] 412362-06-29 09:09:00 Test Item Value Reference Range Interpretation Comments AST (test code = AST) 31 See_Comment [Auto mated message] The system which ge nerated this result transmit swathi reference range : <=37. The reference range was not used to interpr et this result as deny l/abnormal. [place] 412362-06-29 09:09:00 Test Item Value Reference Range Interpretation Comments Alk Phos (test code = Alk Phos) 357 39-136 [place] 412362-06-29 09:09:00 Test Item Value Reference Range Interpretation Comments Bili Total (test code = Bili Total) 1.0 0.2-1.3 [place] 412362-06-29 09:09:00 Test Item Value Reference Range Interpretation Comments eGFR (test code = eGFR) 8 [place] 412362-06-29 09:09:00 Test Item Value Reference Range Interpretation Comments Magnesium Lvl (test code = Magnesium 2.0 1.8-2.4 Lvl) [place] 412362-06-29 09:09:00 Test Item Value Reference Range Interpretation Comments LDH (test code = LDH) 251 98-192 [facility]2022-06-29 09:09:00 Test Item Value Reference Range Interpretation Comments Procalcitonin Lvl (test 0.51 See_Comment [Au tomated message] code = Procalcitonin Lvl) Th e system which generated this result transmitted ref erence range: <=0.10. The reference range was not used to interpr et this result as normal/abnormal . [facility] HospitalJhceahuXGSQOIBUGO9972-26-17 09:09:00 Test Item Value Reference Range Interpretation Comments D-Dimer (test code = D-Dimer) 5.06 [facility] HospitalWcreftuZHYRUMRFMH3130-04-26 09:09:00 Test Item Value Reference Range Interpretation Comments WBC (test code = WBC) 4.8 3.7-10.4 [place] 264282-06-29 09:09:00 Test Item Value Reference Range Interpretation Comments RBC (test code = RBC) 2.14 4.70-6.10 [facility] HospitalSttsfccVLVKAAOPBA0708-02-19 09:09:00 Test Item Value Reference Range Interpretation Comments Hgb (test code = Hgb) 7.7 14.0-18.0 [facility] HospitalDsquadaSEIXWJMEFS1554-90-63 09:09:00 Test Item Value Reference Range Interpretation Comments Hct (test code = Hct) 22.8 42.0-54.0 [facility] HospitalXtokujjNWQVDXPZWX2406-15-57 09:09:00 Test Item Value Reference Range Interpretation Comments MCV (test code = MCV) 106.5 80.0-94.0 [facility] HospitalIhroitxMLZRRKLCQN9735-55-34 09:09:00 Test Item Value Reference Range Interpretation Comments MCH (test code = MCH) 36.1 pg 27.0-31.0 [facility] HospitalDcbfjmeTLVTNAIRYI9381-05-83 09:09:00 Test Item Value Reference Range Interpretation Comments MCHC (test code = MCHC) 33.9 32.0-36.0 [facility] HospitalKwdtqppWNRQVRBKVV5128-03-72 09:09:00 Test Item Value Reference Range Interpretation Comments RDW (test code = RDW) 21.8 11.5-14.5 [facility] HospitalJwdxduvJAGPBHTMXC3078-91-65 09:09:00 Test Item Value Reference Range Interpretation Comments Platelet (test code = Platelet) 176 133-450 [facility] HospitalGzrghrcBBAUWCARKL2668-34-74 09:09:00 Test Item Value Reference Range Interpretation Comments MPV (test code = MPV) 8.2 7.4-10.4 [facility] HospitalVblxebwKBECCHRDFJ5415-53-34 09:09:00 Test Item Value Reference Range Interpretation Comments Segs (test code = Segs) 83.6 45.0-75.0 [facility] HospitalEomfinkTXTGIBXWKJ2651-70-87 09:09:00 Test Item Value Reference Range Interpretation Comments Lymphocytes (test code = Lymphocytes) 10.7 20.0-40.0 [facility] HospitalHrifcfdCSIMDIJZJD8286-84-64 09:09:00 Test Item Value Reference Range Interpretation Comments Monocytes (test code = Monocytes) 4.9 2.0-12.0 [facility] HospitalYkwhaxqSWVJGCVKDH0226-31-41 09:09:00 Test Item Value Reference Range Interpretation Comments Eosinophils (test code = 0.4 See_Comment [A utomated message] The Eosinophils) system which ge nerated this result tra nsmitted reference range : <=4.0. The reference r samantha was not used to int erpret this result as normal/abnormal . [facility] HospitalNijftojMGMRTZVDTM5941-61-15 09:09:00 Test Item Value Reference Range Interpretation Comments Basophils (test code = 0.4 See_Comment [Aut omated message] The Basophils) system which ge nerated this result tra nsmitted reference range : <=1.0. The reference r samantha was not used to int erpret this result as normal/abnormal . [facility] HospitalNdujccaVQIXPCOUSE0091-46-19 09:09:00 Test Item Value Reference Range Interpretation Comments Neutrophils # (test code = Neutrophils 4.0 1.5-8.1 #) [facility] HospitalVdqshiwRNSOKNWYXV0764-70-09 09:09:00 Test Item Value Reference Range Interpretation Comments Lymphocytes # (test code = Lymphocytes 0.5 1.0-5.5 #) [facility] HospitalRtfoqjaITCTCQNUWA2161-74-80 09:09:00 Test Item Value Reference Range Interpretation Comments Monocytes # (test code 0.2 See_Comment [Aut omated message] The = Monocytes #) system which generated this result tra nsmitted reference range : <=0.8. The reference r samantha was not used to int erpret this result as normal/abnormal . [place] 264282-06-29 09:09:00 Test Item Value Reference Range Interpretation Comments Macrocyte (test code = 1+ *ABN*(11/26/21 Macrocyte) 4:09 AM) [facility]RQNLXFSPFE4991-21-67 09:09:00 Test Item Value Reference Range Interpretation Comments Interleukin 6 (test code = Interleukin 14.71 6) [place] 007042-06-29 09:09:00 Test Item Value Reference Range Interpretation Comments C-REACTIVE PROTEIN (test code = 95.9 C-REACTIVE PROTEIN) [facility]2022-06-29 09:09:00 Test Item Value Reference Range Interpretation Comments Ferritin Lvl (test code = Ferritin Lvl) 1543 22275 [place] 412362-06-29 09:09:00 Test Item Value Reference Range Interpretation Comments Glucose Lvl (test code = Glucose Lvl) 288 70-99 [facility]2022-06-29 09:09:00 Test Item Value Reference Range Interpretation Comments BUN (test code = BUN) 40 7-22 [place] 412362-06-29 09:09:00 Test Item Value Reference Range Interpretation Comments Creatinine Lvl (test code = Creatinine 6.23 0.50-1.40 Lvl) [facility]2022-06-29 09:09:00 Test Item Value Reference Range Interpretation Comments Sodium Lvl (test code = Sodium Lvl) 134 135-145 [place] 412362-06-29 09:09:00 Test Item Value Reference Range Interpretation Comments Potassium Lvl (test code = Potassium 4.5 3.5-5.1 Lvl) [facility]2022-06-29 09:09:00 Test Item Value Reference Range Interpretation Comments Chloride Lvl (test code = Chloride Lvl) 96 95-109 [place] 412362-06-29 09:09:00 Test Item Value Reference Range Interpretation Comments CO2 (test code = CO2) 29 24-32 [place] 412362-06-29 09:09:00 Test Item Value Reference Range Interpretation Comments AGAP (test code = AGAP) 13.5 10.0-20.0 [place] 412362-06-29 09:09:00 Test Item Value Reference Range Interpretation Comments Calcium Lvl (test code = Calcium Lvl) 9.1 8.5-10.5 [place] 412362-06-29 09:09:00 Test Item Value Reference Range Interpretation Comments B/C Ratio (test code = B/C Ratio) 6 1 6-25 [place] 412362-06-29 09:09:00 Test Item Value Reference Range Interpretation Comments Total Protein (test code = Total 6.3 6.4-8.4 Protein) [place] 412362-06-29 09:09:00 Test Item Value Reference Range Interpretation Comments Albumin Lvl (test code = Albumin Lvl) 2.5 3.5-5.0 [place] 412362-06-29 09:09:00 Test Item Value Reference Range Interpretation Comments Globulin (test code = Globulin) 3.8 2.7-4.2 [place] 412362-06-29 09:09:00 Test Item Value Reference Range Interpretation Comments A/G Ratio (test code = A/G Ratio) 0.7 1 0.7-1.6 [place] 412362-06-29 09:09:00 Test Item Value Reference Range Interpretation Comments ALT (test code = ALT) 38 See_Comment [Auto mated message] The system which ge nerated this result transmit swathi reference range : <=65. The reference range was not used to interpr et this result as deny l/abnormal. [facility] [id number] 09:09:00 Test Item Value Reference Range Interpretation Comments AST (test code = AST) 31 See_Comment [Auto mated message] The system which ge nerated this result transmit swathi reference range : <=37. The reference range was not used to interpr et this result as deny l/abnormal. [facility] [id number] 09:09:00 Test Item Value Reference Range Interpretation Comments Alk Phos (test code = Alk Phos) 357 39-136 [place] 412362-06-29 09:09:00 Test Item Value Reference Range Interpretation Comments Bili Total (test code = Bili Total) 1.0 0.2-1.3 [place] 412362-06-29 09:09:00 Test Item Value Reference Range Interpretation Comments eGFR (test code = eGFR) 8 [place] 412362-06-29 09:09:00 Test Item Value Reference Range Interpretation Comments Magnesium Lvl (test code = Magnesium 2.0 1.8-2.4 Lvl) [place] 412362-06-29 09:09:00 Test Item Value Reference Range Interpretation Comments LDH (test code = LDH) 251 98-192 [place] 412362-06-29 09:09:00 Test Item Value Reference Range Interpretation Comments Procalcitonin Lvl (test 0.51 See_Comment [Au tomated message] code = Procalcitonin Lvl) e system which generated this result transmitted ref erence range: <=0.10. The reference range was not used to interpr et this result as normal/abnormal . [place] 264282-06-29 09:09:00 Test Item Value Reference Range Interpretation Comments D-Dimer (test code = D-Dimer) 5.06 [place] 264282-06-29 09:09:00 Test Item Value Reference Range Interpretation Comments WBC (test code = WBC) 4.8 3.7-10.4 [place] 264282-06-29 09:09:00 Test Item Value Reference Range Interpretation Comments RBC (test code = RBC) 2.14 4.70-6.10 [place] 264282-06-29 09:09:00 Test Item Value Reference Range Interpretation Comments Hgb (test code = Hgb) 7.7 14.0-18.0 [place] 264282-06-29 09:09:00 Test Item Value Reference Range Interpretation Comments Hct (test code = Hct) 22.8 42.0-54.0 [place] 264282-06-29 09:09:00 Test Item Value Reference Range Interpretation Comments MCV (test code = MCV) 106.5 80.0-94.0 [place] [address]-06-29 09:09:00 Test Item Value Reference Range Interpretation Comments MCH (test code = MCH) 36.1 pg 27.0-31.0 [place] 264282-06-29 09:09:00 Test Item Value Reference Range Interpretation Comments MCHC (test code = MCHC) 33.9 32.0-36.0 [place] 264282-06-29 09:09:00 Test Item Value Reference Range Interpretation Comments RDW (test code = RDW) 21.8 11.5-14.5 [place] 264282-06-29 09:09:00 Test Item Value Reference Range Interpretation Comments Platelet (test code = Platelet) 176 133-450 [place] 264282-06-29 09:09:00 Test Item Value Reference Range Interpretation Comments MPV (test code = MPV) 8.2 7.4-10.4 [place] 264282-06-29 09:09:00 Test Item Value Reference Range Interpretation Comments Segs (test code = Segs) 83.6 45.0-75.0 [place] 264282-06-29 09:09:00 Test Item Value Reference Range Interpretation Comments Lymphocytes (test code = Lymphocytes) 10.7 20.0-40.0 [place] 264282-06-29 09:09:00 Test Item Value Reference Range Interpretation Comments Monocytes (test code = Monocytes) 4.9 2.0-12.0 [place] 264282-06-29 09:09:00 Test Item Value Reference Range Interpretation Comments Eosinophils (test code = 0.4 See_Comment [A utomated message] The Eosinophils) system which ge nerated this result tra nsmitted reference range : <=4.0. The reference r samantha was not used to int erpret this result as normal/abnormal . [facility]:00 Test Item Value Reference Range Interpretation Comments Basophils (test code = 0.4 See_Comment [Aut omated message] The Basophils) system which ge nerated this result tra nsmitted reference range : <=1.0. The reference r samantha was not used to int erpret this result as normal/abnormal . [facility]NsbvbfqLKXPMHSJMY7407-86-24 09:09:00 Test Item Value Reference Range Interpretation Comments Neutrophils # (test code = Neutrophils 4.0 1.5-8.1 #) [place] 264282-06-29 09:09:00 Test Item Value Reference Range Interpretation Comments Lymphocytes # (test code = Lymphocytes 0.5 1.0-5.5 #) [place] 264282-06-29 09:09:00 Test Item Value Reference Range Interpretation Comments Monocytes # (test code 0.2 See_Comment [Aut omated message] The = Monocytes #) system which generated this result tra nsmitted reference range : <=0.8. The reference r samantha was not used to int erpret this result as normal/abnormal . [facility] HospitalJkuscwcEJXYRDMXBA2473-51-61 09:09:00 Test Item Value Reference Range Interpretation Comments Macrocyte (test code = 1+ *ABN*(11/26/21 Macrocyte) 4:09 AM) [facility]59 09:09:00 Test Item Value Reference Range Interpretation Comments Interleukin 6 (test code = Interleukin 14.71 6) [place] 007042-06-29 09:09:00 Test Item Value Reference Range Interpretation Comments C-REACTIVE PROTEIN (test code = 95.9 C-REACTIVE PROTEIN) [facility]2022-06-29 09:09:00 Test Item Value Reference Range Interpretation Comments Ferritin Lvl (test code = Ferritin Lvl) 1543 22275 [facility]2022-06-29 09:09:00 Test Item Value Reference Range Interpretation Comments Glucose Lvl (test code = Glucose Lvl) 288 70-99 [facility]2022-06-29 09:09:00 Test Item Value Reference Range Interpretation Comments BUN (test code = BUN) 40 7-22 [place] 412362-06-29 09:09:00 Test Item Value Reference Range Interpretation Comments Creatinine Lvl (test code = Creatinine 6.23 0.50-1.40 Lvl) [facility]2022-06-29 09:09:00 Test Item Value Reference Range Interpretation Comments Sodium Lvl (test code = Sodium Lvl) 134 135-145 [facility]2022-06-29 09:09:00 Test Item Value Reference Range Interpretation Comments Potassium Lvl (test code = Potassium 4.5 3.5-5.1 Lvl) [place] 412362-06-29 09:09:00 Test Item Value Reference Range Interpretation Comments Chloride Lvl (test code = Chloride Lvl) 96 95-109 [place] 412362-06-29 09:09:00 Test Item Value Reference Range Interpretation Comments CO2 (test code = CO2) 29 24-32 [place]362-06-29 09:09:00 Test Item Value Reference Range Interpretation Comments AGAP (test code = AGAP) 13.5 10.0-20.0 [place]362-06-29 09:09:00 Test Item Value Reference Range Interpretation Comments Calcium Lvl (test code = Calcium Lvl) 9.1 8.5-10.5 [place]362-06-29 09:09:00 Test Item Value Reference Range Interpretation Comments B/C Ratio (test code = B/C Ratio) 6 1 6-25 [place] 412362-06-29 09:09:00 Test Item Value Reference Range Interpretation Comments Total Protein (test code = Total 6.3 6.4-8.4 Protein) [place]362-06-29 09:09:00 Test Item Value Reference Range Interpretation Comments Albumin Lvl (test code = Albumin Lvl) 2.5 3.5-5.0 [place]362-06-29 09:09:00 Test Item Value Reference Range Interpretation Comments Globulin (test code = Globulin) 3.8 2.7-4.2 [place]362-06-29 09:09:00 Test Item Value Reference Range Interpretation Comments A/G Ratio (test code = A/G Ratio) 0.7 1 0.7-1.6 [place]362-06-29 09:09:00 Test Item Value Reference Range Interpretation Comments ALT (test code = ALT) 38 See_Comment [Auto mated message] The system which ge nerated this result transmit swathi reference range : <=65. The reference range was not used to interpr et this result as deny l/abnormal. [facility] [id number] 09:09:00 Test Item Value Reference Range Interpretation Comments AST (test code = AST) 31 See_Comment [Auto mated message] The system which ge nerated this result transmit swathi reference range : <=37. The reference range was not used to interpr et this result as deny l/abnormal. [place]362-06-29 09:09:00 Test Item Value Reference Range Interpretation Comments Alk Phos (test code = Alk Phos) 357 39-136 [facility] [id number] 09:09:00 Test Item Value Reference Range Interpretation Comments Bili Total (test code = Bili Total) 1.0 0.2-1.3 [facility]2022-06-29 09:09:00 Test Item Value Reference Range Interpretation Comments eGFR (test code = eGFR) 8 [facility]2022-06-29 09:09:00 Test Item Value Reference Range Interpretation Comments Magnesium Lvl (test code = Magnesium 2.0 1.8-2.4 Lvl) [place] 412362-06-29 09:09:00 Test Item Value Reference Range Interpretation Comments LDH (test code = LDH) 251 98-192 [facility]2022-06-29 09:09:00 Test Item Value Reference Range Interpretation Comments Procalcitonin Lvl (test 0.51 See_Comment [Au tomated message] code = Procalcitonin Lvl) e system which generated this result transmitted ref erence range: <=0.10. The reference range was not used to interpr et this result as normal/abnormal . [facility] HospitalLntmkgnWBZPOVIYTN9998-96-09 09:09:00 Test Item Value Reference Range Interpretation Comments D-Dimer (test code = D-Dimer) 5.06 [place] 264282-06-29 09:09:00 Test Item Value Reference Range Interpretation Comments WBC (test code = WBC) 4.8 3.7-10.4 [place] 264282-06-29 09:09:00 Test Item Value Reference Range Interpretation Comments RBC (test code = RBC) 2.14 4.70-6.10 [place] 264282-06-29 09:09:00 Test Item Value Reference Range Interpretation Comments Hgb (test code = Hgb) 7.7 14.0-18.0 [place] [address]-06-29 09:09:00 Test Item Value Reference Range Interpretation Comments Hct (test code = Hct) 22.8 42.0-54.0 [place] 264282-06-29 09:09:00 Test Item Value Reference Range Interpretation Comments MCV (test code = MCV) 106.5 80.0-94.0 [place] 264282-06-29 09:09:00 Test Item Value Reference Range Interpretation Comments MCH (test code = MCH) 36.1 pg 27.0-31.0 [place] 264282-06-29 09:09:00 Test Item Value Reference Range Interpretation Comments MCHC (test code = MCHC) 33.9 32.0-36.0 [place] 264282-06-29 09:09:00 Test Item Value Reference Range Interpretation Comments RDW (test code = RDW) 21.8 11.5-14.5 [place] 264282-06-29 09:09:00 Test Item Value Reference Range Interpretation Comments Platelet (test code = Platelet) 176 133-450 [place] 264282-06-29 09:09:00 Test Item Value Reference Range Interpretation Comments MPV (test code = MPV) 8.2 7.4-10.4 [place] 264282-06-29 09:09:00 Test Item Value Reference Range Interpretation Comments Segs (test code = Segs) 83.6 45.0-75.0 [place] 264282-06-29 09:09:00 Test Item Value Reference Range Interpretation Comments Lymphocytes (test code = Lymphocytes) 10.7 20.0-40.0 [facility] HospitalTmbnnweBQXFIOSIVX8965-10-96 09:09:00 Test Item Value Reference Range Interpretation Comments Monocytes (test code = Monocytes) 4.9 2.0-12.0 [place] 264282-06-29 09:09:00 Test Item Value Reference Range Interpretation Comments Eosinophils (test code = 0.4 See_Comment [A utomated message] The Eosinophils) system which ge nerated this result tra nsmitted reference range : <=4.0. The reference r samantha was not used to int erpret this result as normal/abnormal . [facility] HospitalKtagmmaUVEBEQVGJT6769-01-48 09:09:00 Test Item Value Reference Range Interpretation Comments Basophils (test code = 0.4 See_Comment [Aut omated message] The Basophils) system which ge nerated this result tra nsmitted reference range : <=1.0. The reference r samantha was not used to int erpret this result as normal/abnormal . [facility] HospitalIzvbyueYXCKXQLFJP9640-53-90 09:09:00 Test Item Value Reference Range Interpretation Comments Neutrophils # (test code = Neutrophils 4.0 1.5-8.1 #) [facility] HospitalRmtqgtdVIQOXABVGN7283-11-31 09:09:00 Test Item Value Reference Range Interpretation Comments Lymphocytes # (test code = Lymphocytes 0.5 1.0-5.5 #) [facility] HospitalIenklagRAIHPWIGSP3665-13-14 09:09:00 Test Item Value Reference Range Interpretation Comments Monocytes # (test code 0.2 See_Comment [Aut omated message] The = Monocytes #) system which generated this result tra nsmitted reference range : <=0.8. The reference r samantha was not used to int erpret this result as normal/abnormal . [facility] HospitalZczzzumBIXBWOVRDH5896-53-14 09:09:00 Test Item Value Reference Range Interpretation Comments Macrocyte (test code = 1+ *ABN*(11/26/21 Macrocyte) 4:09 AM) [place] 007042-06-29 09:09:00 Test Item Value Reference Range Interpretation Comments Interleukin 6 (test code = Interleukin 14.71 6) [place] 007042-06-29 09:09:00 Test Item Value Reference Range Interpretation Comments C-REACTIVE PROTEIN (test code = 95.9 C-REACTIVE PROTEIN) [facility]2022-06-29 09:09:00 Test Item Value Reference Range Interpretation Comments Ferritin Lvl (test code = Ferritin Lvl) 1543 22-275 [place] 412362-06-29 09:09:00 Test Item Value Reference Range Interpretation Comments Glucose Lvl (test code = Glucose Lvl) 288 70-99 [place] 412362-06-29 09:09:00 Test Item Value Reference Range Interpretation Comments BUN (test code = BUN) 40 7-22 [place] 412362-06-29 09:09:00 Test Item Value Reference Range Interpretation Comments Creatinine Lvl (test code = Creatinine 6.23 0.50-1.40 Lvl) [facility]2022-06-29 09:09:00 Test Item Value Reference Range Interpretation Comments Sodium Lvl (test code = Sodium Lvl) 134 135-145 [place] 412362-06-29 09:09:00 Test Item Value Reference Range Interpretation Comments Potassium Lvl (test code = Potassium 4.5 3.5-5.1 Lvl) [place] 412362-06-29 09:09:00 Test Item Value Reference Range Interpretation Comments Chloride Lvl (test code = Chloride Lvl) 96 95-109 [place] 412362-06-29 09:09:00 Test Item Value Reference Range Interpretation Comments CO2 (test code = CO2) 29 24-32 [place]362-06-29 09:09:00 Test Item Value Reference Range Interpretation Comments AGAP (test code = AGAP) 13.5 10.0-20.0 [place]362-06-29 09:09:00 Test Item Value Reference Range Interpretation Comments Calcium Lvl (test code = Calcium Lvl) 9.1 8.5-10.5 [place]362-06-29 09:09:00 Test Item Value Reference Range Interpretation Comments B/C Ratio (test code = B/C Ratio) 6 1 6-25 [place] [address]-06-29 09:09:00 Test Item Value Reference Range Interpretation Comments Total Protein (test code = Total 6.3 6.4-8.4 Protein) [place] 412362-06-29 09:09:00 Test Item Value Reference Range Interpretation Comments Albumin Lvl (test code = Albumin Lvl) 2.5 3.5-5.0 [place]362-06-29 09:09:00 Test Item Value Reference Range Interpretation Comments Globulin (test code = Globulin) 3.8 2.7-4.2 [place] 412362-06-29 09:09:00 Test Item Value Reference Range Interpretation Comments A/G Ratio (test code = A/G Ratio) 0.7 1 0.7-1.6 [place]362-06-29 09:09:00 Test Item Value Reference Range Interpretation Comments ALT (test code = ALT) 38 See_Comment [Auto mated message] The system which ge nerated this result transmit swathi reference range : <=65. The reference range was not used to interpr et this result as deny l/abnormal. [facility] [id number] 09:09:00 Test Item Value Reference Range Interpretation Comments AST (test code = AST) 31 See_Comment [Auto mated message] The system which ge nerated this result transmit swathi reference range : <=37. The reference range was not used to interpr et this result as deny l/abnormal. [facility] [id number] 09:09:00 Test Item Value Reference Range Interpretation Comments Alk Phos (test code = Alk Phos) 357 39-136 [facility]2022-06-29 09:09:00 Test Item Value Reference Range Interpretation Comments Bili Total (test code = Bili Total) 1.0 0.2-1.3 [place] 412362-06-29 09:09:00 Test Item Value Reference Range Interpretation Comments eGFR (test code = eGFR) 8 [place] 412362-06-29 09:09:00 Test Item Value Reference Range Interpretation Comments Magnesium Lvl (test code = Magnesium 2.0 1.8-2.4 Lvl) [facility]2022-06-29 09:09:00 Test Item Value Reference Range Interpretation Comments LDH (test code = LDH) 251 98-192 [facility]2022-06-29 09:09:00 Test Item Value Reference Range Interpretation Comments Procalcitonin Lvl (test 0.51 See_Comment [Au tomated message] code = Procalcitonin Lvl) e system which generated this result transmitted ref erence range: <=0.10. The reference range was not used to interpr et this result as normal/abnormal . [place] 264282-06-29 09:09:00 Test Item Value Reference Range Interpretation Comments D-Dimer (test code = D-Dimer) 5.06 [place] [address]-06-29 09:09:00 Test Item Value Reference Range Interpretation Comments WBC (test code = WBC) 4.8 3.7-10.4 [place] 264282-06-29 09:09:00 Test Item Value Reference Range Interpretation Comments RBC (test code = RBC) 2.14 4.70-6.10 [place] [address]-06-29 09:09:00 Test Item Value Reference Range Interpretation Comments Hgb (test code = Hgb) 7.7 14.0-18.0 [place] [address]-06-29 09:09:00 Test Item Value Reference Range Interpretation Comments Hct (test code = Hct) 22.8 42.0-54.0 [place] [address]-06-29 09:09:00 Test Item Value Reference Range Interpretation Comments MCV (test code = MCV) 106.5 80.0-94.0 [place] 264282-06-29 09:09:00 Test Item Value Reference Range Interpretation Comments MCH (test code = MCH) 36.1 pg 27.0-31.0 [facility] HospitalYztwrjmVGIJWYSPCW4547-26-19 09:09:00 Test Item Value Reference Range Interpretation Comments MCHC (test code = MCHC) 33.9 32.0-36.0 [facility] HospitalTfamgqwYEERSQLBWR1103-03-60 09:09:00 Test Item Value Reference Range Interpretation Comments RDW (test code = RDW) 21.8 11.5-14.5 [facility] HospitalLvnxqkzYLEZEWETUV8306-50-16 09:09:00 Test Item Value Reference Range Interpretation Comments Platelet (test code = Platelet) 176 133-450 [facility] HospitalZqekgzbIZGEWUPPEH5604-03-82 09:09:00 Test Item Value Reference Range Interpretation Comments MPV (test code = MPV) 8.2 7.4-10.4 [facility] HospitalUjxbhprHYUMMLIMMK7958-81-00 09:09:00 Test Item Value Reference Range Interpretation Comments Segs (test code = Segs) 83.6 45.0-75.0 [facility] HospitalQwsfjgdNTPESBWMRE6560-67-08 09:09:00 Test Item Value Reference Range Interpretation Comments Lymphocytes (test code = Lymphocytes) 10.7 20.0-40.0 [place] 264282-06-29 09:09:00 Test Item Value Reference Range Interpretation Comments Monocytes (test code = Monocytes) 4.9 2.0-12.0 [facility]2022-06-29 09:09:00 Test Item Value Reference Range Interpretation Comments Ferritin Lvl (test code = Ferritin Lvl) 1543 22275 [facility]2022-06-29 09:09:00 Test Item Value Reference Range Interpretation Comments Glucose Lvl (test code = Glucose Lvl) 288 70-99 [facility]2022-06-29 09:09:00 Test Item Value Reference Range Interpretation Comments BUN (test code = BUN) 40 7-22 [facility]2022-06-29 09:09:00 Test Item Value Reference Range Interpretation Comments Creatinine Lvl (test code = Creatinine 6.23 0.50-1.40 Lvl) [facility]2022-06-29 09:09:00 Test Item Value Reference Range Interpretation Comments Sodium Lvl (test code = Sodium Lvl) 134 135-145 [place] 412362-06-29 09:09:00 Test Item Value Reference Range Interpretation Comments Potassium Lvl (test code = Potassium 4.5 3.5-5.1 Lvl) [place] 412362-06-29 09:09:00 Test Item Value Reference Range Interpretation Comments Chloride Lvl (test code = Chloride Lvl) 96 95-109 [place] 412362-06-29 09:09:00 Test Item Value Reference Range Interpretation Comments CO2 (test code = CO2) 29 24-32 [facility] HospitalBqsiasfLPUVWXKIQK9790-44-18 09:09:00 Test Item Value Reference Range Interpretation Comments Eosinophils (test code = 0.4 See_Comment [A utomated message] The Eosinophils) system which ge nerated this result tra nsmitted reference range : <=4.0. The reference r samantha was not used to int erpret this result as normal/abnormal . [facility]2022-06-29 09:09:00 Test Item Value Reference Range Interpretation Comments AGAP (test code = AGAP) 13.5 10.0-20.0 [place] 412362-06-29 09:09:00 Test Item Value Reference Range Interpretation Comments Calcium Lvl (test code = Calcium Lvl) 9.1 8.5-10.5 [place]362-06-29 09:09:00 Test Item Value Reference Range Interpretation Comments B/C Ratio (test code = B/C Ratio) 6 1 6-25 [place] 412362-06-29 09:09:00 Test Item Value Reference Range Interpretation Comments Total Protein (test code = Total 6.3 6.4-8.4 Protein) [place] 412362-06-29 09:09:00 Test Item Value Reference Range Interpretation Comments Albumin Lvl (test code = Albumin Lvl) 2.5 3.5-5.0 [place] 412362-06-29 09:09:00 Test Item Value Reference Range Interpretation Comments Globulin (test code = Globulin) 3.8 2.7-4.2 [place]362-06-29 09:09:00 Test Item Value Reference Range Interpretation Comments A/G Ratio (test code = A/G Ratio) 0.7 1 0.7-1.6 [place]362-06-29 09:09:00 Test Item Value Reference Range Interpretation Comments ALT (test code = ALT) 38 See_Comment [Auto mated message] The system which ge nerated this result transmit swathi reference range : <=65. The reference range was not used to interpr et this result as deny l/abnormal. [place]362-06-29 09:09:00 Test Item Value Reference Range Interpretation Comments AST (test code = AST) 31 See_Comment [Auto mated message] The system which ge nerated this result transmit swathi reference range : <=37. The reference range was not used to interpr et this result as deny l/abnormal. [place]362-06-29 09:09:00 Test Item Value Reference Range Interpretation Comments Alk Phos (test code = Alk Phos) 357 39-136 [facility] HospitalTtwcksaYOJTBOLZNK3342-39-31 09:09:00 Test Item Value Reference Range Interpretation Comments Basophils (test code = 0.4 See_Comment [Aut omated message] The Basophils) system which ge nerated this result tra nsmitted reference range : <=1.0. The reference r samantha was not used to int erpret this result as normal/abnormal . [place]362-06-29 09:09:00 Test Item Value Reference Range Interpretation Comments Bili Total (test code = Bili Total) 1.0 0.2-1.3 [place]362-06-29 09:09:00 Test Item Value Reference Range Interpretation Comments eGFR (test code = eGFR) 8 [place] 412362-06-29 09:09:00 Test Item Value Reference Range Interpretation Comments Magnesium Lvl (test code = Magnesium 2.0 1.8-2.4 Lvl) [place] 412362-06-29 09:09:00 Test Item Value Reference Range Interpretation Comments LDH (test code = LDH) 251 98-192 [place] 412362-06-29 09:09:00 Test Item Value Reference Range Interpretation Comments Procalcitonin Lvl (test 0.51 See_Comment [Au tomated message] code = Procalcitonin Lvl) Th e system which generated this result transmitted ref erence range: <=0.10. The reference range was not used to interpr et this result as normal/abnormal . [facility] HospitalOaftnkkQUJSCOTFEU4001-70-91 09:09:00 Test Item Value Reference Range Interpretation Comments D-Dimer (test code = D-Dimer) 5.06 [place] 264282-06-29 09:09:00 Test Item Value Reference Range Interpretation Comments WBC (test code = WBC) 4.8 3.7-10.4 [place] 264282-06-29 09:09:00 Test Item Value Reference Range Interpretation Comments RBC (test code = RBC) 2.14 4.70-6.10 [place] [address]-06-29 09:09:00 Test Item Value Reference Range Interpretation Comments Hgb (test code = Hgb) 7.7 14.0-18.0 [place] [address]-06-29 09:09:00 Test Item Value Reference Range Interpretation Comments Hct (test code = Hct) 22.8 42.0-54.0 [place] 264282-06-29 09:09:00 Test Item Value Reference Range Interpretation Comments Neutrophils # (test code = Neutrophils 4.0 1.5-8.1 #) [facility]faotacYBAXOKFEIZ5287-82-93 09:09:00 Test Item Value Reference Range Interpretation Comments MCV (test code = MCV) 106.5 80.0-94.0 [place] 264282-06-29 09:09:00 Test Item Value Reference Range Interpretation Comments MCH (test code = MCH) 36.1 pg 27.0-31.0 [place] 264282-06-29 09:09:00 Test Item Value Reference Range Interpretation Comments MCHC (test code = MCHC) 33.9 32.0-36.0 [place] 264282-06-29 09:09:00 Test Item Value Reference Range Interpretation Comments RDW (test code = RDW) 21.8 11.5-14.5 [place] 264282-06-29 09:09:00 Test Item Value Reference Range Interpretation Comments Platelet (test code = Platelet) 176 133-450 [place] 264282-06-29 09:09:00 Test Item Value Reference Range Interpretation Comments MPV (test code = MPV) 8.2 7.4-10.4 [facility] HospitalDapsuhiHSIHGEFWCZ2381-40-24 09:09:00 Test Item Value Reference Range Interpretation Comments Segs (test code = Segs) 83.6 45.0-75.0 [facility] HospitalJgquzylSVRNGMEQRC6902-36-43 09:09:00 Test Item Value Reference Range Interpretation Comments Lymphocytes (test code = Lymphocytes) 10.7 20.0-40.0 [facility] HospitalLvoenfzTNCLPXZJHM0323-10-36 09:09:00 Test Item Value Reference Range Interpretation Comments Monocytes (test code = Monocytes) 4.9 2.0-12.0 [place] 264282-06-29 09:09:00 Test Item Value Reference Range Interpretation Comments Eosinophils (test code = 0.4 See_Comment [A utomated message] The Eosinophils) system which ge nerated this result tra nsmitted reference range : <=4.0. The reference r samantha was not used to int erpret this result as normal/abnormal . [facility] HospitalFwclobqFDOHBXZDWR2652-83-76 09:09:00 Test Item Value Reference Range Interpretation Comments Lymphocytes # (test code = Lymphocytes 0.5 1.0-5.5 #) [facility] HospitalAoxobmwJRBRIJNXZF9103-09-80 09:09:00 Test Item Value Reference Range Interpretation Comments Basophils (test code = 0.4 See_Comment [Aut omated message] The Basophils) system which ge nerated this result tra nsmitted reference range : <=1.0. The reference r samantha was not used to int erpret this result as normal/abnormal . [facility] HospitalQwrmqroQFRSUIRXZT6857-09-84 09:09:00 Test Item Value Reference Range Interpretation Comments Neutrophils # (test code = Neutrophils 4.0 1.5-8.1 #) [place] 264282-06-29 09:09:00 Test Item Value Reference Range Interpretation Comments Lymphocytes # (test code = Lymphocytes 0.5 1.0-5.5 #) [place] 264282-06-29 09:09:00 Test Item Value Reference Range Interpretation Comments Monocytes # (test code 0.2 See_Comment [Aut omated message] The = Monocytes #) system which generated this result tra nsmitted reference range : <=0.8. The reference r samantha was not used to int erpret this result as normal/abnormal . [facility] HospitalQzsnbelTEAPHNKHTE2888-97-81 09:09:00 Test Item Value Reference Range Interpretation Comments Macrocyte (test code = 1+ *ABN*(11/26/21 Macrocyte) 4:09 AM) [facility]EZ[facility]ABRAPFL2787-49-89 09:09:00 Test Item Value Reference Range Interpretation Comments Interleukin 6 (test code = Interleukin 14.71 6) [place] 007042-06-29 09:09:00 Test Item Value Reference Range Interpretation Comments C-REACTIVE PROTEIN (test code = 95.9 C-REACTIVE PROTEIN) [facility] HospitalReicndaEFSRZGGEVP2332-98-72 09:09:00 Test Item Value Reference Range Interpretation Comments Monocytes # (test code 0.2 See_Comment [Aut omated message] The = Monocytes #) system which generated this result tra nsmitted reference range : <=0.8. The reference r samantha was not used to int erpret this result as normal/abnormal . [facility] HospitalHwlthuvOVRPZGKZLN1561-14-53 09:09:00 Test Item Value Reference Range Interpretation Comments Macrocyte (test code = 1+ *ABN*(11/26/21 Macrocyte) 4:09 AM) [facility]CyscuesHJHKIAMRQD2521-61-19 09:09:00 Test Item Value Reference Range Interpretation Comments Interleukin 6 (test code = Interleukin 14.71 6) [facility]QsvvyrwRMFIKQJTXM3987-12-78 09:09:00 Test Item Value Reference Range Interpretation Comments C-REACTIVE PROTEIN (test code = 95.9 C-REACTIVE PROTEIN) [facility]2022-06-29 09:09:00 Test Item Value Reference Range Interpretation Comments Ferritin Lvl (test code = Ferritin Lvl) 1543 22-275 [facility]2022-06-29 09:09:00 Test Item Value Reference Range Interpretation Comments Glucose Lvl (test code = Glucose Lvl) 288 70-99 [facility]2022-06-29 09:09:00 Test Item Value Reference Range Interpretation Comments BUN (test code = BUN) 40 7-22 [place] 412362-06-29 09:09:00 Test Item Value Reference Range Interpretation Comments Creatinine Lvl (test code = Creatinine 6.23 0.50-1.40 Lvl) [facility]2022-06-29 09:09:00 Test Item Value Reference Range Interpretation Comments Sodium Lvl (test code = Sodium Lvl) 134 135-145 [place] 412362-06-29 09:09:00 Test Item Value Reference Range Interpretation Comments Potassium Lvl (test code = Potassium 4.5 3.5-5.1 Lvl) [place] 412362-06-29 09:09:00 Test Item Value Reference Range Interpretation Comments Chloride Lvl (test code = Chloride Lvl) 96 95-109 [place] 412362-06-29 09:09:00 Test Item Value Reference Range Interpretation Comments CO2 (test code = CO2) 29 24-32 [place] 412362-06-29 09:09:00 Test Item Value Reference Range Interpretation Comments AGAP (test code = AGAP) 13.5 10.0-20.0 [place] 412362-06-29 09:09:00 Test Item Value Reference Range Interpretation Comments Calcium Lvl (test code = Calcium Lvl) 9.1 8.5-10.5 [place] 412362-06-29 09:09:00 Test Item Value Reference Range Interpretation Comments B/C Ratio (test code = B/C Ratio) 6 1 6-25 [place] 412362-06-29 09:09:00 Test Item Value Reference Range Interpretation Comments Total Protein (test code = Total 6.3 6.4-8.4 Protein) [place] 412362-06-29 09:09:00 Test Item Value Reference Range Interpretation Comments Albumin Lvl (test code = Albumin Lvl) 2.5 3.5-5.0 [place] 412362-06-29 09:09:00 Test Item Value Reference Range Interpretation Comments Globulin (test code = Globulin) 3.8 2.7-4.2 [place]362-06-29 09:09:00 Test Item Value Reference Range Interpretation Comments A/G Ratio (test code = A/G Ratio) 0.7 1 0.7-1.6 [place]362-06-29 09:09:00 Test Item Value Reference Range Interpretation Comments ALT (test code = ALT) 38 See_Comment [Auto mated message] The system which ge nerated this result transmit swathi reference range : <=65. The reference range was not used to interpr et this result as deny l/abnormal. [place] 412362-06-29 09:09:00 Test Item Value Reference Range Interpretation Comments AST (test code = AST) 31 See_Comment [Auto mated message] The system which ge nerated this result transmit swathi reference range : <=37. The reference range was not used to interpr et this result as deny l/abnormal. [place] 412362-06-29 09:09:00 Test Item Value Reference Range Interpretation Comments Alk Phos (test code = Alk Phos) 357 39-136 [place] 412362-06-29 09:09:00 Test Item Value Reference Range Interpretation Comments Bili Total (test code = Bili Total) 1.0 0.2-1.3 [place] 412362-06-29 09:09:00 Test Item Value Reference Range Interpretation Comments eGFR (test code = eGFR) 8 [place] 412362-06-29 09:09:00 Test Item Value Reference Range Interpretation Comments Magnesium Lvl (test code = Magnesium 2.0 1.8-2.4 Lvl) [place] 412362-06-29 09:09:00 Test Item Value Reference Range Interpretation Comments LDH (test code = LDH) 251 98-192 [facility] NPDBB7622-89-53 09:09:00 Test Item Value Reference Range Interpretation Comments Procalcitonin Lvl (test 0.51 See_Comment [Au tomated message] code = Procalcitonin Lvl) Th e system which generated this result transmitted ref erence range: <=0.10. The reference range was not used to interpr et this result as normal/abnormal . [place] 264282-06-29 09:09:00 Test Item Value Reference Range Interpretation Comments D-Dimer (test code = D-Dimer) 5.06 [place] [address]-06-29 09:09:00 Test Item Value Reference Range Interpretation Comments WBC (test code = WBC) 4.8 3.7-10.4 [place] [address]-06-29 09:09:00 Test Item Value Reference Range Interpretation Comments RBC (test code = RBC) 2.14 4.70-6.10 [place] [address]-06-29 09:09:00 Test Item Value Reference Range Interpretation Comments Hgb (test code = Hgb) 7.7 14.0-18.0 [facility] HospitalCxdstnwFIPVXILTCG4894-07-58 09:09:00 Test Item Value Reference Range Interpretation Comments Hct (test code = Hct) 22.8 42.0-54.0 [facility] HospitalRvtpxypLMJLGLOZVG0937-39-72 09:09:00 Test Item Value Reference Range Interpretation Comments MCV (test code = MCV) 106.5 80.0-94.0 [facility] HospitalWlzuczdAYAFEGYNNY6508-61-34 09:09:00 Test Item Value Reference Range Interpretation Comments MCH (test code = MCH) 36.1 pg 27.0-31.0 [facility] HospitalYyamqnsTDBATVGSWX3099-43-64 09:09:00 Test Item Value Reference Range Interpretation Comments MCHC (test code = MCHC) 33.9 32.0-36.0 [facility] HospitalKhnffqfXQAVYHPKIP8757-22-98 09:09:00 Test Item Value Reference Range Interpretation Comments RDW (test code = RDW) 21.8 11.5-14.5 [facility] HospitalSmujpwnDDMSDTSPEM8231-81-54 09:09:00 Test Item Value Reference Range Interpretation Comments Platelet (test code = Platelet) 176 133-450 [facility] HospitalHdzrwvgMETOPZLEOZ1496-84-47 09:09:00 Test Item Value Reference Range Interpretation Comments MPV (test code = MPV) 8.2 7.4-10.4 [place] 264282-06-29 09:09:00 Test Item Value Reference Range Interpretation Comments Segs (test code = Segs) 83.6 45.0-75.0 [facility] HospitalHfjtspgOYPHAFVQAA0056-15-09 09:09:00 Test Item Value Reference Range Interpretation Comments Lymphocytes (test code = Lymphocytes) 10.7 20.0-40.0 [facility] HospitalYgbbdnbBVYLLUYISB1668-99-89 09:09:00 Test Item Value Reference Range Interpretation Comments Monocytes (test code = Monocytes) 4.9 2.0-12.0 [facility] HospitalGdkbrecLBUEKHQBZD7796-07-52 09:09:00 Test Item Value Reference Range Interpretation Comments Eosinophils (test code = 0.4 See_Comment [A utomated message] The Eosinophils) system which ge nerated this result tra nsmitted reference range : <=4.0. The reference r samantha was not used to int erpret this result as normal/abnormal . [facility] HospitalXbzkavsFONROYOCRG9970-49-79 09:09:00 Test Item Value Reference Range Interpretation Comments Basophils (test code = 0.4 See_Comment [Aut omated message] The Basophils) system which ge nerated this result tra nsmitted reference range : <=1.0. The reference r samantha was not used to int erpret this result as normal/abnormal . [facility] HospitalYkmtrhbLWJETAOBZP9658-10-29 09:09:00 Test Item Value Reference Range Interpretation Comments Neutrophils # (test code = Neutrophils 4.0 1.5-8.1 #) [facility] HospitalLfcteotUHQGTRHBFX1203-64-81 09:09:00 Test Item Value Reference Range Interpretation Comments Lymphocytes # (test code = Lymphocytes 0.5 1.0-5.5 #) [facility] HospitalGzupvjxVGPWAPIOWZ0036-48-67 09:09:00 Test Item Value Reference Range Interpretation Comments Monocytes # (test code 0.2 See_Comment [Aut omated message] The = Monocytes #) system which generated this result tra nsmitted reference range : <=0.8. The reference r samantha was not used to int erpret this result as normal/abnormal . [facility] HospitalRgtalgoBPHCTSMSAV0757-35-88 09:09:00 Test Item Value Reference Range Interpretation Comments Macrocyte (test code = 1+ *ABN*(11/26/21 Macrocyte) 4:09 AM) [facility]LuvzzaoLEVAEYIPMH5681-38-35 09:09:00 Test Item Value Reference Range Interpretation Comments Interleukin 6 (test code = Interleukin 14.71 6) [facility]ArfczmnSGEYPADIGV8478-87-30 09:09:00 Test Item Value Reference Range Interpretation Comments C-REACTIVE PROTEIN (test code = 95.9 C-REACTIVE PROTEIN) [facility]2022-06-29 09:09:00 Test Item Value Reference Range Interpretation Comments Ferritin Lvl (test code = Ferritin Lvl) 1543 22-275 [facility]2022-06-29 09:09:00 Test Item Value Reference Range Interpretation Comments Glucose Lvl (test code = Glucose Lvl) 288 70-99 [facility]2022-06-29 09:09:00 Test Item Value Reference Range Interpretation Comments BUN (test code = BUN) 40 7-22 [facility]2022-06-29 09:09:00 Test Item Value Reference Range Interpretation Comments Creatinine Lvl (test code = Creatinine 6.23 0.50-1.40 Lvl) [place] 412362-06-29 09:09:00 Test Item Value Reference Range Interpretation Comments Sodium Lvl (test code = Sodium Lvl) 134 135-145 [place] 412362-06-29 09:09:00 Test Item Value Reference Range Interpretation Comments Potassium Lvl (test code = Potassium 4.5 3.5-5.1 Lvl) [place] 412362-06-29 09:09:00 Test Item Value Reference Range Interpretation Comments Chloride Lvl (test code = Chloride Lvl) 96 95-109 [place] 412362-06-29 09:09:00 Test Item Value Reference Range Interpretation Comments CO2 (test code = CO2) 29 24-32 [place] 412362-06-29 09:09:00 Test Item Value Reference Range Interpretation Comments AGAP (test code = AGAP) 13.5 10.0-20.0 [place] 412362-06-29 09:09:00 Test Item Value Reference Range Interpretation Comments Calcium Lvl (test code = Calcium Lvl) 9.1 8.5-10.5 [place] 412362-06-29 09:09:00 Test Item Value Reference Range Interpretation Comments B/C Ratio (test code = B/C Ratio) 6 1 6-25 [place] 412362-06-29 09:09:00 Test Item Value Reference Range Interpretation Comments Total Protein (test code = Total 6.3 6.4-8.4 Protein) [place] 412362-06-29 09:09:00 Test Item Value Reference Range Interpretation Comments Albumin Lvl (test code = Albumin Lvl) 2.5 3.5-5.0 [place] 412362-06-29 09:09:00 Test Item Value Reference Range Interpretation Comments Globulin (test code = Globulin) 3.8 2.7-4.2 [place] 412362-06-29 09:09:00 Test Item Value Reference Range Interpretation Comments A/G Ratio (test code = A/G Ratio) 0.7 1 0.7-1.6 [place] 412362-06-29 09:09:00 Test Item Value Reference Range Interpretation Comments ALT (test code = ALT) 38 See_Comment [Auto mated message] The system which ge nerated this result transmit swathi reference range : <=65. The reference range was not used to interpr et this result as deny l/abnormal. [facility] [id number] 09:09:00 Test Item Value Reference Range Interpretation Comments AST (test code = AST) 31 See_Comment [Auto mated message] The system which ge nerated this result transmit swathi reference range : <=37. The reference range was not used to interpr et this result as deny l/abnormal. [facility] XLHTJ5374-82-89 09:09:00 Test Item Value Reference Range Interpretation Comments Alk Phos (test code = Alk Phos) 357 39-136 [place] 412362-06-29 09:09:00 Test Item Value Reference Range Interpretation Comments Bili Total (test code = Bili Total) 1.0 0.2-1.3 [facility] WXTNW8489-43-01 09:09:00 Test Item Value Reference Range Interpretation Comments eGFR (test code = eGFR) 8 [facility] EUWKD8098-70-86 09:09:00 Test Item Value Reference Range Interpretation Comments Magnesium Lvl (test code = Magnesium 2.0 1.8-2.4 Lvl) [place] 412362-06-29 09:09:00 Test Item Value Reference Range Interpretation Comments LDH (test code = LDH) 251 98-192 [facility] IGSCT4830-16-07 09:09:00 Test Item Value Reference Range Interpretation Comments Procalcitonin Lvl (test 0.51 See_Comment [Au tomated message] code = Procalcitonin Lvl) Th e system which generated this result transmitted ref erence range: <=0.10. The reference range was not used to interpr et this result as normal/abnormal . [facility] BeevilleOnkybatGTPYWEKOLV1004-13-61 09:09:00 Test Item Value Reference Range Interpretation Comments D-Dimer (test code = D-Dimer) 5.06 [place] [address]-06-29 09:09:00 Test Item Value Reference Range Interpretation Comments WBC (test code = WBC) 4.8 3.7-10.4 [address]06-29 09:09:00 Test Item Value Reference Range Interpretation Comments RBC (test code = RBC) 2.14 4.70-6.10 [place] 264282-06-29 09:09:00 Test Item Value Reference Range Interpretation Comments Hgb (test code = Hgb) 7.7 14.0-18.0 [place] 264282-06-29 09:09:00 Test Item Value Reference Range Interpretation Comments Hct (test code = Hct) 22.8 42.0-54.0 [facility] HospitalJmvdjiyGNUZENYQUK8486-31-45 09:09:00 Test Item Value Reference Range Interpretation Comments MCV (test code = MCV) 106.5 80.0-94.0 [place] 264282-06-29 09:09:00 Test Item Value Reference Range Interpretation Comments MCH (test code = MCH) 36.1 pg 27.0-31.0 [place] 264282-06-29 09:09:00 Test Item Value Reference Range Interpretation Comments MCHC (test code = MCHC) 33.9 32.0-36.0 [facility] HospitalVpvzxiuRSOGGLLPAZ4974-31-37 09:09:00 Test Item Value Reference Range Interpretation Comments RDW (test code = RDW) 21.8 11.5-14.5 [facility] HospitalLwxzkehKTVKVJWEVI8957-86-77 09:09:00 Test Item Value Reference Range Interpretation Comments Platelet (test code = Platelet) 176 133-450 [facility] HospitalVtdsigfOYUHEEUOXA7134-07-54 09:09:00 Test Item Value Reference Range Interpretation Comments MPV (test code = MPV) 8.2 7.4-10.4 [facility] HospitalYayjyuyDQRZVBGYGC3652-40-15 09:09:00 Test Item Value Reference Range Interpretation Comments Segs (test code = Segs) 83.6 45.0-75.0 [place] 264282-06-29 09:09:00 Test Item Value Reference Range Interpretation Comments Lymphocytes (test code = Lymphocytes) 10.7 20.0-40.0 [place] 264282-06-29 09:09:00 Test Item Value Reference Range Interpretation Comments Monocytes (test code = Monocytes) 4.9 2.0-12.0 [place] 264282-06-29 09:09:00 Test Item Value Reference Range Interpretation Comments Eosinophils (test code = 0.4 See_Comment [A utomated message] The Eosinophils) system which ge nerated this result tra nsmitted reference range : <=4.0. The reference r samantha was not used to int erpret this result as normal/abnormal . [facility] HospitalFfocgwmIVXFANQQLY3221-36-06 09:09:00 Test Item Value Reference Range Interpretation Comments Basophils (test code = 0.4 See_Comment [Aut omated message] The Basophils) system which ge nerated this result tra nsmitted reference range : <=1.0. The reference r samantha was not used to int erpret this result as normal/abnormal . [facility] HospitalIunmfomRJTLBDBGBH0080-17-67 09:09:00 Test Item Value Reference Range Interpretation Comments Neutrophils # (test code = Neutrophils 4.0 1.5-8.1 #) [facility] HospitalQxsfafgAEGTJYLLCP3732-56-59 09:09:00 Test Item Value Reference Range Interpretation Comments Lymphocytes # (test code = Lymphocytes 0.5 1.0-5.5 #) [facility] HospitalUwkdeplPIMCUTCNWH7683-75-09 09:09:00 Test Item Value Reference Range Interpretation Comments Monocytes # (test code 0.2 See_Comment [Aut omated message] The = Monocytes #) system which generated this result tra nsmitted reference range : <=0.8. The reference r samantha was not used to int erpret this result as normal/abnormal . [facility] HospitalQdgzaaiEOZOUTHZDB2133-69-25 09:09:00 Test Item Value Reference Range Interpretation Comments Macrocyte (test code = 1+ *ABN*(11/26/21 Macrocyte) 4:09 AM) [facility]evilleFksfsbpZZGSKVZVHD0741-36-47 09:09:00 Test Item Value Reference Range Interpretation Comments Interleukin 6 (test code = Interleukin 14.71 6) [facility]evilleUfeamqhVVURPXMJWC9614-38-37 09:09:00 Test Item Value Reference Range Interpretation Comments C-REACTIVE PROTEIN (test code = 95.9 C-REACTIVE PROTEIN) [facility]2022-06-29 09:09:00 Test Item Value Reference Range Interpretation Comments Ferritin Lvl (test code = Ferritin Lvl) 1542 22-410 [facility] ZNFLW0753-20-22 09:09:00 Test Item Value Reference Range Interpretation Comments Glucose Lvl (test code = Glucose Lvl) 288 70-99 [facility]2022-06-29 09:09:00 Test Item Value Reference Range Interpretation Comments BUN (test code = BUN) 40 7-22 [place] 412362-06-29 09:09:00 Test Item Value Reference Range Interpretation Comments Creatinine Lvl (test code = Creatinine 6.23 0.50-1.40 Lvl) [place] 412362-06-29 09:09:00 Test Item Value Reference Range Interpretation Comments Sodium Lvl (test code = Sodium Lvl) 134 135-145 [place] 412362-06-29 09:09:00 Test Item Value Reference Range Interpretation Comments Potassium Lvl (test code = Potassium 4.5 3.5-5.1 Lvl) [place] 412362-06-29 09:09:00 Test Item Value Reference Range Interpretation Comments Chloride Lvl (test code = Chloride Lvl) 96 95-109 [place] 412362-06-29 09:09:00 Test Item Value Reference Range Interpretation Comments CO2 (test code = CO2) 29 24-32 [place] 412362-06-29 09:09:00 Test Item Value Reference Range Interpretation Comments AGAP (test code = AGAP) 13.5 10.0-20.0 [place] 412362-06-29 09:09:00 Test Item Value Reference Range Interpretation Comments Calcium Lvl (test code = Calcium Lvl) 9.1 8.5-10.5 [place] 412362-06-29 09:09:00 Test Item Value Reference Range Interpretation Comments B/C Ratio (test code = B/C Ratio) 6 1 6-25 [place] 412362-06-29 09:09:00 Test Item Value Reference Range Interpretation Comments Total Protein (test code = Total 6.3 6.4-8.4 Protein) [place] 412362-06-29 09:09:00 Test Item Value Reference Range Interpretation Comments Albumin Lvl (test code = Albumin Lvl) 2.5 3.5-5.0 [place] 412362-06-29 09:09:00 Test Item Value Reference Range Interpretation Comments Globulin (test code = Globulin) 3.8 2.7-4.2 [place] 412362-06-29 09:09:00 Test Item Value Reference Range Interpretation Comments A/G Ratio (test code = A/G Ratio) 0.7 1 0.7-1.6 [place] [address]-06-29 09:09:00 Test Item Value Reference Range Interpretation Comments ALT (test code = ALT) 38 See_Comment [Auto mated message] The system which ge nerated this result transmit swathi reference range : <=65. The reference range was not used to interpr et this result as deny l/abnormal. [place] 412362-06-29 09:09:00 Test Item Value Reference Range Interpretation Comments AST (test code = AST) 31 See_Comment [Auto mated message] The system which ge nerated this result transmit swathi reference range : <=37. The reference range was not used to interpr et this result as deny l/abnormal. [place] 412362-06-29 09:09:00 Test Item Value Reference Range Interpretation Comments Alk Phos (test code = Alk Phos) 357 39-136 [place] 412362-06-29 09:09:00 Test Item Value Reference Range Interpretation Comments Bili Total (test code = Bili Total) 1.0 0.2-1.3 [place] 412362-06-29 09:09:00 Test Item Value Reference Range Interpretation Comments eGFR (test code = eGFR) 8 [place] 412362-06-29 09:09:00 Test Item Value Reference Range Interpretation Comments Magnesium Lvl (test code = Magnesium 2.0 1.8-2.4 Lvl) [place] 412362-06-29 09:09:00 Test Item Value Reference Range Interpretation Comments LDH (test code = LDH) 251 98-192 [place] 412362-06-29 09:09:00 Test Item Value Reference Range Interpretation Comments Procalcitonin Lvl (test 0.51 See_Comment [Au tomated message] code = Procalcitonin Lvl) Th e system which generated this result transmitted ref erence range: <=0.10. The reference range was not used to interpr et this result as normal/abnormal . [place] 264282-06-29 09:09:00 Test Item Value Reference Range Interpretation Comments D-Dimer (test code = D-Dimer) 5.06 [facility]PxgtnjoBZIHICNXLC6685-71-94 09:09:00 Test Item Value Reference Range Interpretation Comments WBC (test code = WBC) 4.8 3.7-10.4 [facility] HospitalKupvxknDIGDHIKSHL6600-61-37 09:09:00 Test Item Value Reference Range Interpretation Comments RBC (test code = RBC) 2.14 4.70-6.10 [facility] HospitalArrnqjhODCZFIRRTY1594-39-88 09:09:00 Test Item Value Reference Range Interpretation Comments Hgb (test code = Hgb) 7.7 14.0-18.0 [facility] HospitalPbldpxhNKMISCFXGW4709-21-69 09:09:00 Test Item Value Reference Range Interpretation Comments Hct (test code = Hct) 22.8 42.0-54.0 [facility] HospitalCfsnrsiQGDLOGEJXY9195-75-73 09:09:00 Test Item Value Reference Range Interpretation Comments MCV (test code = MCV) 106.5 80.0-94.0 [facility] HospitalHerxqhfBBDGPVTBBV5356-50-16 09:09:00 Test Item Value Reference Range Interpretation Comments MCH (test code = MCH) 36.1 pg 27.0-31.0 [facility] HospitalKgsjgpaXMBRYYVVFH1901-35-70 09:09:00 Test Item Value Reference Range Interpretation Comments MCHC (test code = MCHC) 33.9 32.0-36.0 [facility] HospitalCfhijprQLLNEPAHCO6482-39-12 09:09:00 Test Item Value Reference Range Interpretation Comments RDW (test code = RDW) 21.8 11.5-14.5 [facility] HospitalJgnoyuqFXFISZHQOX9276-27-84 09:09:00 Test Item Value Reference Range Interpretation Comments Platelet (test code = Platelet) 176 133-450 [facility] HospitalImrdskbSJPSICCXKY3462-59-04 09:09:00 Test Item Value Reference Range Interpretation Comments MPV (test code = MPV) 8.2 7.4-10.4 [facility] HospitalQnpujvxHVFMQXXTCM3760-31-10 09:09:00 Test Item Value Reference Range Interpretation Comments Segs (test code = Segs) 83.6 45.0-75.0 [facility] HospitalIsrhpfyNRIEUXJJYW8887-24-33 09:09:00 Test Item Value Reference Range Interpretation Comments Lymphocytes (test code = Lymphocytes) 10.7 20.0-40.0 [facility] HospitalUskfpiaWMLRVOIGFM2126-13-69 09:09:00 Test Item Value Reference Range Interpretation Comments Monocytes (test code = Monocytes) 4.9 2.0-12.0 [facility] HospitalGlbxbmxOVINFHBSCL6420-33-63 09:09:00 Test Item Value Reference Range Interpretation Comments Eosinophils (test code = 0.4 See_Comment [A utomated message] The Eosinophils) system which ge nerated this result tra nsmitted reference range : <=4.0. The reference r samantha was not used to int erpret this result as normal/abnormal . [facility] HospitalSsuwxetCYSNQTHLTU2848-52-04 09:09:00 Test Item Value Reference Range Interpretation Comments Basophils (test code = 0.4 See_Comment [Aut omated message] The Basophils) system which ge nerated this result tra nsmitted reference range : <=1.0. The reference r samantha was not used to int erpret this result as normal/abnormal . [facility] HospitalJecozbqOREYQFLPXZ0422-67-32 09:09:00 Test Item Value Reference Range Interpretation Comments Neutrophils # (test code = Neutrophils 4.0 1.5-8.1 #) [facility] HospitalXbhhwdzAXJYDXBPPO0148-04-79 09:09:00 Test Item Value Reference Range Interpretation Comments Lymphocytes # (test code = Lymphocytes 0.5 1.0-5.5 #) [facility] HospitalFqtvutpYDLDIYLWQF7036-63-25 09:09:00 Test Item Value Reference Range Interpretation Comments Monocytes # (test code 0.2 See_Comment [Aut omated message] The = Monocytes #) system which generated this result tra nsmitted reference range : <=0.8. The reference r samantha was not used to int erpret this result as normal/abnormal . [facility] HospitalTwctwrcBLIJLPHOKZ6609-74-61 09:09:00 Test Item Value Reference Range Interpretation Comments Macrocyte (test code = 1+ *ABN*(11/26/21 Macrocyte) 4:09 AM) [facility] 09:09:00 Test Item Value Reference Range Interpretation Comments Interleukin 6 (test code = Interleukin 14.71 6) [facility]HeidhllJTWJFFQWML4660-45-89 09:09:00 Test Item Value Reference Range Interpretation Comments C-REACTIVE PROTEIN (test code = 95.9 C-REACTIVE PROTEIN) [facility]2022-06-29 09:09:00 Test Item Value Reference Range Interpretation Comments Ferritin Lvl (test code = Ferritin Lvl) 1543 22-275 [place] 412362-06-29 09:09:00 Test Item Value Reference Range Interpretation Comments Glucose Lvl (test code = Glucose Lvl) 288 70-99 [place] 412362-06-29 09:09:00 Test Item Value Reference Range Interpretation Comments BUN (test code = BUN) 40 7-22 [place] 412362-06-29 09:09:00 Test Item Value Reference Range Interpretation Comments Creatinine Lvl (test code = Creatinine 6.23 0.50-1.40 Lvl) [place] 412362-06-29 09:09:00 Test Item Value Reference Range Interpretation Comments Sodium Lvl (test code = Sodium Lvl) 134 135-145 [place] 412362-06-29 09:09:00 Test Item Value Reference Range Interpretation Comments Potassium Lvl (test code = Potassium 4.5 3.5-5.1 Lvl) [place] 412362-06-29 09:09:00 Test Item Value Reference Range Interpretation Comments Chloride Lvl (test code = Chloride Lvl) 96 95-109 [place] 412362-06-29 09:09:00 Test Item Value Reference Range Interpretation Comments CO2 (test code = CO2) 29 24-32 [place] 412362-06-29 09:09:00 Test Item Value Reference Range Interpretation Comments AGAP (test code = AGAP) 13.5 10.0-20.0 [place]362-06-29 09:09:00 Test Item Value Reference Range Interpretation Comments Calcium Lvl (test code = Calcium Lvl) 9.1 8.5-10.5 [place]362-06-29 09:09:00 Test Item Value Reference Range Interpretation Comments B/C Ratio (test code = B/C Ratio) 6 1 6-25 [place] 412362-06-29 09:09:00 Test Item Value Reference Range Interpretation Comments Total Protein (test code = Total 6.3 6.4-8.4 Protein) [place]362-06-29 09:09:00 Test Item Value Reference Range Interpretation Comments Albumin Lvl (test code = Albumin Lvl) 2.5 3.5-5.0 [facility]398FZFBZ9832-01-33 09:09:00 Test Item Value Reference Range Interpretation Comments Globulin (test code = Globulin) 3.8 2.7-4.2 [place] 412362-06-29 09:09:00 Test Item Value Reference Range Interpretation Comments A/G Ratio (test code = A/G Ratio) 0.7 1 0.7-1.6 [place]362-06-29 09:09:00 Test Item Value Reference Range Interpretation Comments ALT (test code = ALT) 38 See_Comment [Auto mated message] The system which ge nerated this result transmit swathi reference range : <=65. The reference range was not used to interpr et this result as deny l/abnormal. [place] 412362-06-29 09:09:00 Test Item Value Reference Range Interpretation Comments AST (test code = AST) 31 See_Comment [Auto mated message] The system which ge nerated this result transmit swathi reference range : <=37. The reference range was not used to interpr et this result as deny l/abnormal. [place]362-06-29 09:09:00 Test Item Value Reference Range Interpretation Comments Alk Phos (test code = Alk Phos) 357 39-136 [place] 412362-06-29 09:09:00 Test Item Value Reference Range Interpretation Comments Bili Total (test code = Bili Total) 1.0 0.2-1.3 [place]362-06-29 09:09:00 Test Item Value Reference Range Interpretation Comments eGFR (test code = eGFR) 8 [facility] YCWGP4892-87-74 09:09:00 Test Item Value Reference Range Interpretation Comments Magnesium Lvl (test code = Magnesium 2.0 1.8-2.4 Lvl) [place] 412362-06-29 09:09:00 Test Item Value Reference Range Interpretation Comments LDH (test code = LDH) 251 98-192 [facility] ANKQS1708-68-58 09:09:00 Test Item Value Reference Range Interpretation Comments Procalcitonin Lvl (test 0.51 See_Comment [Au tomated message] code = Procalcitonin Lvl) Th e system which generated this result transmitted ref erence range: <=0.10. The reference range was not used to interpr et this result as normal/abnormal . [place] 264282-06-29 09:09:00 Test Item Value Reference Range Interpretation Comments D-Dimer (test code = D-Dimer) 5.06 [place] 264282-06-29 09:09:00 Test Item Value Reference Range Interpretation Comments WBC (test code = WBC) 4.8 3.7-10.4 [place] 264282-06-29 09:09:00 Test Item Value Reference Range Interpretation Comments RBC (test code = RBC) 2.14 4.70-6.10 [place] [address]-06-29 09:09:00 Test Item Value Reference Range Interpretation Comments Hgb (test code = Hgb) 7.7 14.0-18.0 [place] [address]-06-29 09:09:00 Test Item Value Reference Range Interpretation Comments Hct (test code = Hct) 22.8 42.0-54.0 [place] 264282-06-29 09:09:00 Test Item Value Reference Range Interpretation Comments MCV (test code = MCV) 106.5 80.0-94.0 [place] [address]-06-29 09:09:00 Test Item Value Reference Range Interpretation Comments MCH (test code = MCH) 36.1 pg 27.0-31.0 [place] 264282-06-29 09:09:00 Test Item Value Reference Range Interpretation Comments MCHC (test code = MCHC) 33.9 32.0-36.0 [place] 264282-06-29 09:09:00 Test Item Value Reference Range Interpretation Comments RDW (test code = RDW) 21.8 11.5-14.5 [place] [address]-06-29 09:09:00 Test Item Value Reference Range Interpretation Comments Platelet (test code = Platelet) 176 133-450 [place] 264282-06-29 09:09:00 Test Item Value Reference Range Interpretation Comments MPV (test code = MPV) 8.2 7.4-10.4 [place] [address]-06-29 09:09:00 Test Item Value Reference Range Interpretation Comments Segs (test code = Segs) 83.6 45.0-75.0 [facility] HospitalKtpmqynLLUQYKGGJW1063-12-62 09:09:00 Test Item Value Reference Range Interpretation Comments Lymphocytes (test code = Lymphocytes) 10.7 20.0-40.0 [facility] HospitalTzxfsdeMFRYYFRXJP9984-93-36 09:09:00 Test Item Value Reference Range Interpretation Comments Monocytes (test code = Monocytes) 4.9 2.0-12.0 [facility] HospitalFzoszkeOIRYVQKVYM0465-58-98 09:09:00 Test Item Value Reference Range Interpretation Comments Eosinophils (test code = 0.4 See_Comment [A utomated message] The Eosinophils) system which ge nerated this result tra nsmitted reference range : <=4.0. The reference r samantha was not used to int erpret this result as normal/abnormal . [facility] HospitalNlbhjecHOGKTDFLTQ6010-35-92 09:09:00 Test Item Value Reference Range Interpretation Comments Basophils (test code = 0.4 See_Comment [Aut omated message] The Basophils) system which ge nerated this result tra nsmitted reference range : <=1.0. The reference r samantha was not used to int erpret this result as normal/abnormal . [facility] HospitalAvtumahSTJVHYWQHP2784-98-97 09:09:00 Test Item Value Reference Range Interpretation Comments Neutrophils # (test code = Neutrophils 4.0 1.5-8.1 #) [facility] HospitalDpafohmTVWZASNMBG9752-25-50 09:09:00 Test Item Value Reference Range Interpretation Comments Lymphocytes # (test code = Lymphocytes 0.5 1.0-5.5 #) [facility] HospitalLxymlmwUYDJRDXIXY1377-51-44 09:09:00 Test Item Value Reference Range Interpretation Comments Monocytes # (test code 0.2 See_Comment [Aut omated message] The = Monocytes #) system which generated this result tra nsmitted reference range : <=0.8. The reference r smaantha was not used to int erpret this result as normal/abnormal . [facility] HospitalVdsqsfuRWQSXVVJTY5267-62-17 09:09:00 Test Item Value Reference Range Interpretation Comments Macrocyte (test code = 1+ *ABN*(11/26/21 Macrocyte) 4:09 AM) [facility]RofymuzVSAQZZLGKN2485-94-92 09:09:00 Test Item Value Reference Range Interpretation Comments Interleukin 6 (test code = Interleukin 14.71 6) [place] [address]-06-29 09:09:00 Test Item Value Reference Range Interpretation Comments C-REACTIVE PROTEIN (test code = 95.9 C-REACTIVE PROTEIN) [place] 264282-06-28 12:33:00 Test Item Value Reference Range Interpretation Comments Segs (test code = Segs) 84.8 45.0-75.0 [place] 264282-06-28 12:33:00 Test Item Value Reference Range Interpretation Comments Lymphocytes (test code = Lymphocytes) 11.6 20.0-40.0 [place] 264282-06-28 12:33:00 Test Item Value Reference Range Interpretation Comments Monocytes (test code = Monocytes) 2.8 2.0-12.0 [place] 264282-06-28 12:33:00 Test Item Value Reference Range Interpretation Comments Eosinophils (test code = 0.4 See_Comment [A utomated message] The Eosinophils) system which ge nerated this result tra nsmitted reference range : <=4.0. The reference r samantha was not used to int erpret this result as normal/abnormal . [facility] HospitalNujcfecKNAYKKRRIL8937-41-90 12:33:00 Test Item Value Reference Range Interpretation Comments Basophils (test code = 0.4 See_Comment [Aut omated message] The Basophils) system which ge nerated this result tra nsmitted reference range : <=1.0. The reference r samantha was not used to int erpret this result as normal/abnormal . [place] 264282-06-28 12:33:00 Test Item Value Reference Range Interpretation Comments Neutrophils # (test code = Neutrophils 4.4 1.5-8.1 #) [place] 264282-06-28 12:33:00 Test Item Value Reference Range Interpretation Comments Lymphocytes # (test code = Lymphocytes 0.6 1.0-5.5 #) [place] 264282-06-28 12:33:00 Test Item Value Reference Range Interpretation Comments Monocytes # (test code 0.1 See_Comment [Aut omated message] The = Monocytes #) system which generated this result tra nsmitted reference range : <=0.8. The reference r samantha was not used to int erpret this result as normal/abnormal . [place] 264282-06-28 12:33:00 Test Item Value Reference Range Interpretation Comments Macrocyte (test code = 1+ *ABN*(11/25/21 Macrocyte) 7:33 AM) [facility] HospitalSychjciSTOQHJREWZ8589-88-32 12:33:00 Test Item Value Reference Range Interpretation Comments WBC (test code = WBC) 5.2 3.7-10.4 [facility] HospitalKppaxiyDUINIUBCEW2662-60-88 12:33:00 Test Item Value Reference Range Interpretation Comments RBC (test code = RBC) 2.18 4.70-6.10 [facility] HospitalUfbcfqoNRNCETMUPO5139-91-56 12:33:00 Test Item Value Reference Range Interpretation Comments Hgb (test code = Hgb) 7.8 14.0-18.0 [place] 264282-06-28 12:33:00 Test Item Value Reference Range Interpretation Comments Hct (test code = Hct) 23.6 42.0-54.0 [facility] HospitalJmprvogMROTOJAACX2698-72-54 12:33:00 Test Item Value Reference Range Interpretation Comments MCV (test code = MCV) 108.4 80.0-94.0 [facility] HospitalRlnrazgONFSRXJPIJ4794-95-32 12:33:00 Test Item Value Reference Range Interpretation Comments MCH (test code = MCH) 35.9 pg 27.0-31.0 [facility] HospitalJkxjkgsEFHAIKZMBZ5226-91-45 12:33:00 Test Item Value Reference Range Interpretation Comments MCHC (test code = MCHC) 33.1 32.0-36.0 [facility] HospitalHngpusxKAJUAYJTQU9862-64-98 12:33:00 Test Item Value Reference Range Interpretation Comments RDW (test code = RDW) 21.5 11.5-14.5 [facility] HospitalJhkxbuaKTDTWGJVJV6641-04-67 12:33:00 Test Item Value Reference Range Interpretation Comments Platelet (test code = Platelet) 167 133-450 [facility] HospitalWbxllzrQOZYKETUWC4579-75-23 12:33:00 Test Item Value Reference Range Interpretation Comments MPV (test code = MPV) 7.6 7.4-10.4 [facility] HospitalSwvkhgfPTPVEEDBJU8934-88-01 12:33:00 Test Item Value Reference Range Interpretation Comments Segs (test code = Segs) 84.8 45.0-75.0 [facility] HospitalOdhaevpTQPBXXPDXK9838-55-86 12:33:00 Test Item Value Reference Range Interpretation Comments Lymphocytes (test code = Lymphocytes) 11.6 20.0-40.0 [facility] HospitalIxjxcozVVBIXQTGPA7796-60-17 12:33:00 Test Item Value Reference Range Interpretation Comments Monocytes (test code = Monocytes) 2.8 2.0-12.0 [place] 264282-06-28 12:33:00 Test Item Value Reference Range Interpretation Comments Eosinophils (test code = 0.4 See_Comment [A utomated message] The Eosinophils) system which ge nerated this result tra nsmitted reference range : <=4.0. The reference r samantha was not used to int erpret this result as normal/abnormal . [facility] HospitalLvzgkdvGWOGLTJMIB4694-35-79 12:33:00 Test Item Value Reference Range Interpretation Comments Basophils (test code = 0.4 See_Comment [Aut omated message] The Basophils) system which ge nerated this result tra nsmitted reference range : <=1.0. The reference r samantha was not used to int erpret this result as normal/abnormal . [facility] HospitalIwyjgpzBAIMMJHRAH1669-55-69 12:33:00 Test Item Value Reference Range Interpretation Comments Neutrophils # (test code = Neutrophils 4.4 1.5-8.1 #) [facility] HospitalZjbvciwDPHKQDLILW7907-97-49 12:33:00 Test Item Value Reference Range Interpretation Comments Lymphocytes # (test code = Lymphocytes 0.6 1.0-5.5 #) [place] 264282-06-28 12:33:00 Test Item Value Reference Range Interpretation Comments Monocytes # (test code 0.1 See_Comment [Aut omated message] The = Monocytes #) system which generated this result tra nsmitted reference range : <=0.8. The reference r samantha was not used to int erpret this result as normal/abnormal . [facility] HospitalPjwgrpyDQRKYQSIIX4799-50-46 12:33:00 Test Item Value Reference Range Interpretation Comments Macrocyte (test code = 1+ *ABN*(11/25/21 Macrocyte) 7:33 AM) [facility] HospitalKjxuxodBWATEQUUNC8235-46-57 12:33:00 Test Item Value Reference Range Interpretation Comments WBC (test code = WBC) 5.2 3.7-10.4 [place] 264282-06-28 12:33:00 Test Item Value Reference Range Interpretation Comments RBC (test code = RBC) 2.18 4.70-6.10 [facility] HospitalYslimpnVJRGAAMGYE1279-85-35 12:33:00 Test Item Value Reference Range Interpretation Comments Hgb (test code = Hgb) 7.8 14.0-18.0 [facility] HospitalMjrfhjeVVKRCCFWTN2744-47-17 12:33:00 Test Item Value Reference Range Interpretation Comments Hct (test code = Hct) 23.6 42.0-54.0 [facility] HospitalCbpvxzyDDASFPKLAS8052-52-05 12:33:00 Test Item Value Reference Range Interpretation Comments MCV (test code = MCV) 108.4 80.0-94.0 [place] 264282-06-28 12:33:00 Test Item Value Reference Range Interpretation Comments MCH (test code = MCH) 35.9 pg 27.0-31.0 [place] 264282-06-28 12:33:00 Test Item Value Reference Range Interpretation Comments MCHC (test code = MCHC) 33.1 32.0-36.0 [facility] HospitalIrtmlrhJGVGQXUOER2545-60-19 12:33:00 Test Item Value Reference Range Interpretation Comments RDW (test code = RDW) 21.5 11.5-14.5 [facility] HospitalExlpecpVULXMYGKPU2265-36-14 12:33:00 Test Item Value Reference Range Interpretation Comments Platelet (test code = Platelet) 167 133-450 [facility] HospitalWarmoenYUMQALHZJH0920-81-85 12:33:00 Test Item Value Reference Range Interpretation Comments MPV (test code = MPV) 7.6 7.4-10.4 [place] 264282-06-28 12:33:00 Test Item Value Reference Range Interpretation Comments Segs (test code = Segs) 84.8 45.0-75.0 [place] 264282-06-28 12:33:00 Test Item Value Reference Range Interpretation Comments Lymphocytes (test code = Lymphocytes) 11.6 20.0-40.0 [place] [address]-06-28 12:33:00 Test Item Value Reference Range Interpretation Comments Monocytes (test code = Monocytes) 2.8 2.0-12.0 [place] 264282-06-28 12:33:00 Test Item Value Reference Range Interpretation Comments Eosinophils (test code = 0.4 See_Comment [A utomated message] The Eosinophils) system which ge nerated this result tra nsmitted reference range : <=4.0. The reference r samantha was not used to int erpret this result as normal/abnormal . [facility] HospitalBjgnqqkUGQLYEKSOU3099-77-13 12:33:00 Test Item Value Reference Range Interpretation Comments Basophils (test code = 0.4 See_Comment [Aut omated message] The Basophils) system which ge nerated this result tra nsmitted reference range : <=1.0. The reference r samantha was not used to int erpret this result as normal/abnormal . [facility] HospitalGdzwfsjXRSQJDDEEX4094-25-74 12:33:00 Test Item Value Reference Range Interpretation Comments Neutrophils # (test code = Neutrophils 4.4 1.5-8.1 #) [facility] HospitalPcgaxqjLIJATPHZMO1127-63-33 12:33:00 Test Item Value Reference Range Interpretation Comments Lymphocytes # (test code = Lymphocytes 0.6 1.0-5.5 #) [facility] HospitalIligowrAPEJLHEVTO2226-65-71 12:33:00 Test Item Value Reference Range Interpretation Comments Monocytes # (test code 0.1 See_Comment [Aut omated message] The = Monocytes #) system which generated this result tra nsmitted reference range : <=0.8. The reference r samantha was not used to int erpret this result as normal/abnormal . [facility] HospitalKaxpgttIZYPEFZOQV0442-32-57 12:33:00 Test Item Value Reference Range Interpretation Comments Macrocyte (test code = 1+ *ABN*(11/25/21 Macrocyte) 7:33 AM) [facility] HospitalUccbpupHWLJUYRJJM8728-71-41 12:33:00 Test Item Value Reference Range Interpretation Comments WBC (test code = WBC) 5.2 3.7-10.4 [place] 264282-06-28 12:33:00 Test Item Value Reference Range Interpretation Comments RBC (test code = RBC) 2.18 4.70-6.10 [place] 264282-06-28 12:33:00 Test Item Value Reference Range Interpretation Comments Hgb (test code = Hgb) 7.8 14.0-18.0 [place] 264282-06-28 12:33:00 Test Item Value Reference Range Interpretation Comments Hct (test code = Hct) 23.6 42.0-54.0 [place] 264282-06-28 12:33:00 Test Item Value Reference Range Interpretation Comments MCV (test code = MCV) 108.4 80.0-94.0 [place] 264282-06-28 12:33:00 Test Item Value Reference Range Interpretation Comments MCH (test code = MCH) 35.9 pg 27.0-31.0 [place] 264282-06-28 12:33:00 Test Item Value Reference Range Interpretation Comments MCHC (test code = MCHC) 33.1 32.0-36.0 [place] 264282-06-28 12:33:00 Test Item Value Reference Range Interpretation Comments RDW (test code = RDW) 21.5 11.5-14.5 [place] 264282-06-28 12:33:00 Test Item Value Reference Range Interpretation Comments Platelet (test code = Platelet) 167 133-450 [place] 264282-06-28 12:33:00 Test Item Value Reference Range Interpretation Comments MPV (test code = MPV) 7.6 7.4-10.4 [place] 264282-06-28 12:33:00 Test Item Value Reference Range Interpretation Comments Segs (test code = Segs) 84.8 45.0-75.0 [place] [address]-06-28 12:33:00 Test Item Value Reference Range Interpretation Comments Lymphocytes (test code = Lymphocytes) 11.6 20.0-40.0 [place] 264282-06-28 12:33:00 Test Item Value Reference Range Interpretation Comments Monocytes (test code = Monocytes) 2.8 2.0-12.0 [place] 264282-06-28 12:33:00 Test Item Value Reference Range Interpretation Comments Eosinophils (test code = 0.4 See_Comment [A utomated message] The Eosinophils) system which ge nerated this result tra nsmitted reference range : <=4.0. The reference r samantha was not used to int erpret this result as normal/abnormal . [place] 264282-06-28 12:33:00 Test Item Value Reference Range Interpretation Comments Basophils (test code = 0.4 See_Comment [Aut omated message] The Basophils) system which ge nerated this result tra nsmitted reference range : <=1.0. The reference r samantha was not used to int erpret this result as normal/abnormal . [place]282-06-28 12:33:00 Test Item Value Reference Range Interpretation Comments Neutrophils # (test code = Neutrophils 4.4 1.5-8.1 #) [place] 264282-06-28 12:33:00 Test Item Value Reference Range Interpretation Comments Lymphocytes # (test code = Lymphocytes 0.6 1.0-5.5 #) [place] 264282-06-28 12:33:00 Test Item Value Reference Range Interpretation Comments Monocytes # (test code 0.1 See_Comment [Aut omated message] The = Monocytes #) system which generated this result tra nsmitted reference range : <=0.8. The reference r samantha was not used to int erpret this result as normal/abnormal . [place] 264282-06-28 12:33:00 Test Item Value Reference Range Interpretation Comments Macrocyte (test code = 1+ *ABN*(11/25/21 Macrocyte) 7:33 AM) [place] 264282-06-28 12:33:00 Test Item Value Reference Range Interpretation Comments WBC (test code = WBC) 5.2 3.7-10.4 [place] 264282-06-28 12:33:00 Test Item Value Reference Range Interpretation Comments RBC (test code = RBC) 2.18 4.70-6.10 [place] 264282-06-28 12:33:00 Test Item Value Reference Range Interpretation Comments Hgb (test code = Hgb) 7.8 14.0-18.0 [place] 264282-06-28 12:33:00 Test Item Value Reference Range Interpretation Comments Hct (test code = Hct) 23.6 42.0-54.0 [place] [address]-06-28 12:33:00 Test Item Value Reference Range Interpretation Comments MCV (test code = MCV) 108.4 80.0-94.0 [place] 264282-06-28 12:33:00 Test Item Value Reference Range Interpretation Comments MCH (test code = MCH) 35.9 pg 27.0-31.0 [place] 264282-06-28 12:33:00 Test Item Value Reference Range Interpretation Comments MCHC (test code = MCHC) 33.1 32.0-36.0 [place] 264282-06-28 12:33:00 Test Item Value Reference Range Interpretation Comments RDW (test code = RDW) 21.5 11.5-14.5 [place] 264282-06-28 12:33:00 Test Item Value Reference Range Interpretation Comments Platelet (test code = Platelet) 167 133-450 [place] 264282-06-28 12:33:00 Test Item Value Reference Range Interpretation Comments MPV (test code = MPV) 7.6 7.4-10.4 [place] 264282-06-28 12:33:00 Test Item Value Reference Range Interpretation Comments Segs (test code = Segs) 84.8 45.0-75.0 [place] 264282-06-28 12:33:00 Test Item Value Reference Range Interpretation Comments Lymphocytes (test code = Lymphocytes) 11.6 20.0-40.0 [place] 264282-06-28 12:33:00 Test Item Value Reference Range Interpretation Comments Monocytes (test code = Monocytes) 2.8 2.0-12.0 [place] 264282-06-28 12:33:00 Test Item Value Reference Range Interpretation Comments Eosinophils (test code = 0.4 See_Comment [A utomated message] The Eosinophils) system which ge nerated this result tra nsmitted reference range : <=4.0. The reference r samantha was not used to int erpret this result as normal/abnormal . [facility]AGT[facility]80[facility]:33:00 Test Item Value Reference Range Interpretation Comments Basophils (test code = 0.4 See_Comment [Aut omated message] The Basophils) system which ge nerated this result tra nsmitted reference range : <=1.0. The reference r samantha was not used to int erpret this result as normal/abnormal . [place] 264282-06-28 12:33:00 Test Item Value Reference Range Interpretation Comments Neutrophils # (test code = Neutrophils 4.4 1.5-8.1 #) [place] 264282-06-28 12:33:00 Test Item Value Reference Range Interpretation Comments Lymphocytes # (test code = Lymphocytes 0.6 1.0-5.5 #) [facility] HospitalMbbtexaSEUKOELZSS1503-32-57 12:33:00 Test Item Value Reference Range Interpretation Comments Monocytes # (test code 0.1 See_Comment [Aut omated message] The = Monocytes #) system which generated this result tra nsmitted reference range : <=0.8. The reference r smaantha was not used to int erpret this result as normal/abnormal . [facility] HospitalEzjeiikKYCNOCWYOI5884-61-59 12:33:00 Test Item Value Reference Range Interpretation Comments Macrocyte (test code = 1+ *ABN*(11/25/21 Macrocyte) 7:33 AM) [facility] HospitalGwtnplzZOHYGKEZMH2733-97-37 12:33:00 Test Item Value Reference Range Interpretation Comments WBC (test code = WBC) 5.2 3.7-10.4 [facility] HospitalSoijdrvOXLCQKXNJF0673-94-28 12:33:00 Test Item Value Reference Range Interpretation Comments RBC (test code = RBC) 2.18 4.70-6.10 [facility] HospitalSibgfyhUKBVXRWTNZ4484-97-36 12:33:00 Test Item Value Reference Range Interpretation Comments Hgb (test code = Hgb) 7.8 14.0-18.0 [facility] HospitalTtpzyvmBVDZTIBKXL8188-34-60 12:33:00 Test Item Value Reference Range Interpretation Comments Hct (test code = Hct) 23.6 42.0-54.0 [facility] HospitalPfyxjwlCBVJUISVMO2870-08-53 12:33:00 Test Item Value Reference Range Interpretation Comments MCV (test code = MCV) 108.4 80.0-94.0 [facility] HospitalHwvpvlfJYZGMEUOHF7981-24-36 12:33:00 Test Item Value Reference Range Interpretation Comments MCH (test code = MCH) 35.9 pg 27.0-31.0 [facility] HospitalMgtazfpQBSGHKDMON6152-66-83 12:33:00 Test Item Value Reference Range Interpretation Comments MCHC (test code = MCHC) 33.1 32.0-36.0 [facility] HospitalJdjxxazCDOREDTPWF7790-55-89 12:33:00 Test Item Value Reference Range Interpretation Comments RDW (test code = RDW) 21.5 11.5-14.5 [facility] HospitalYsgskzrPMRZJOTSRP4611-08-43 12:33:00 Test Item Value Reference Range Interpretation Comments Platelet (test code = Platelet) 167 133-450 [place] 264282-06-28 12:33:00 Test Item Value Reference Range Interpretation Comments MPV (test code = MPV) 7.6 7.4-10.4 [place] 264282-06-28 12:33:00 Test Item Value Reference Range Interpretation Comments Segs (test code = Segs) 84.8 45.0-75.0 [place]282-06-28 12:33:00 Test Item Value Reference Range Interpretation Comments Lymphocytes (test code = Lymphocytes) 11.6 20.0-40.0 [place] 264282-06-28 12:33:00 Test Item Value Reference Range Interpretation Comments Monocytes (test code = Monocytes) 2.8 2.0-12.0 [place]282-06-28 12:33:00 Test Item Value Reference Range Interpretation Comments Eosinophils (test code = 0.4 See_Comment [A utomated message] The Eosinophils) system which ge nerated this result tra nsmitted reference range : <=4.0. The reference r samantha was not used to int erpret this result as normal/abnormal . [facility] HospitalLqexahyNVZBZDPCNP4996-72-31 12:33:00 Test Item Value Reference Range Interpretation Comments Basophils (test code = 0.4 See_Comment [Aut omated message] The Basophils) system which ge nerated this result tra nsmitted reference range : <=1.0. The reference r samantha was not used to int erpret this result as normal/abnormal . [facility] HospitalEcxvpkqFJMOAMTNUL4238-15-42 12:33:00 Test Item Value Reference Range Interpretation Comments Neutrophils # (test code = Neutrophils 4.4 1.5-8.1 #) [facility] HospitalScdzblyNJPINAVUKX2185-69-74 12:33:00 Test Item Value Reference Range Interpretation Comments Lymphocytes # (test code = Lymphocytes 0.6 1.0-5.5 #) [place]282-06-28 12:33:00 Test Item Value Reference Range Interpretation Comments Monocytes # (test code 0.1 See_Comment [Aut omated message] The = Monocytes #) system which generated this result tra nsmitted reference range : <=0.8. The reference r samantha was not used to int erpret this result as normal/abnormal . [place]282-06-28 12:33:00 Test Item Value Reference Range Interpretation Comments Macrocyte (test code = 1+ *ABN*(11/25/21 Macrocyte) 7:33 AM) [facility] HospitalQusmsotGEDBVHLQJM2903-16-91 12:33:00 Test Item Value Reference Range Interpretation Comments WBC (test code = WBC) 5.2 3.7-10.4 [facility] HospitalNbfrrxhDJJKEVPNBA5209-55-35 12:33:00 Test Item Value Reference Range Interpretation Comments RBC (test code = RBC) 2.18 4.70-6.10 [facility] HospitalFzxpsrlMNKZVZVLNM7847-14-74 12:33:00 Test Item Value Reference Range Interpretation Comments Hgb (test code = Hgb) 7.8 14.0-18.0 [facility] HospitalWcmgzuwZIANEDLQIW6947-76-18 12:33:00 Test Item Value Reference Range Interpretation Comments Hct (test code = Hct) 23.6 42.0-54.0 [facility] HospitalDtndhbjYACLFHMXNP0573-94-04 12:33:00 Test Item Value Reference Range Interpretation Comments MCV (test code = MCV) 108.4 80.0-94.0 [facility] HospitalAjfrgwvCYJXQXWOLA9176-50-99 12:33:00 Test Item Value Reference Range Interpretation Comments MCH (test code = MCH) 35.9 pg 27.0-31.0 [facility] HospitalTwwwoujMDVJTTTYLF5374-95-93 12:33:00 Test Item Value Reference Range Interpretation Comments MCHC (test code = MCHC) 33.1 32.0-36.0 [facility] HospitalYtpujyzFOQAHDYLZH5292-66-39 12:33:00 Test Item Value Reference Range Interpretation Comments RDW (test code = RDW) 21.5 11.5-14.5 [facility] HospitalZexyivnQKTVDOXUDW6947-87-29 12:33:00 Test Item Value Reference Range Interpretation Comments Platelet (test code = Platelet) 167 133-450 [facility] HospitalSynnddzQGJCHJLAKO4512-20-22 12:33:00 Test Item Value Reference Range Interpretation Comments MPV (test code = MPV) 7.6 7.4-10.4 [facility] HospitalCxpanapYFCFYVSNJB5646-50-45 12:33:00 Test Item Value Reference Range Interpretation Comments Segs (test code = Segs) 84.8 45.0-75.0 [facility] HospitalWsqaefxOVFQIDDRKW9005-33-22 12:33:00 Test Item Value Reference Range Interpretation Comments Lymphocytes (test code = Lymphocytes) 11.6 20.0-40.0 [facility] HospitalKhcrqdgXYSPCFWOZS8490-88-81 12:33:00 Test Item Value Reference Range Interpretation Comments Monocytes (test code = Monocytes) 2.8 2.0-12.0 [place]282-06-28 12:33:00 Test Item Value Reference Range Interpretation Comments Eosinophils (test code = 0.4 See_Comment [A utomated message] The Eosinophils) system which ge nerated this result tra nsmitted reference range : <=4.0. The reference r samantha was not used to int erpret this result as normal/abnormal . [place]282-06-28 12:33:00 Test Item Value Reference Range Interpretation Comments Basophils (test code = 0.4 See_Comment [Aut omated message] The Basophils) system which ge nerated this result tra nsmitted reference range : <=1.0. The reference r samantha was not used to int erpret this result as normal/abnormal . [facility] HospitalPykeyneTMUDKFJZUK5192-67-70 12:33:00 Test Item Value Reference Range Interpretation Comments Neutrophils # (test code = Neutrophils 4.4 1.5-8.1 #) [facility] HospitalUwtqfnmGCTKAXOETV4849-28-80 12:33:00 Test Item Value Reference Range Interpretation Comments Lymphocytes # (test code = Lymphocytes 0.6 1.0-5.5 #) [place]282-06-28 12:33:00 Test Item Value Reference Range Interpretation Comments Monocytes # (test code 0.1 See_Comment [Aut omated message] The = Monocytes #) system which generated this result tra nsmitted reference range : <=0.8. The reference r samantha was not used to int erpret this result as normal/abnormal . [place]282-06-28 12:33:00 Test Item Value Reference Range Interpretation Comments Macrocyte (test code = 1+ *ABN*(11/25/21 Macrocyte) 7:33 AM) [facility] HospitalLguhgpfMGIRDXXSHD0157-31-51 12:33:00 Test Item Value Reference Range Interpretation Comments WBC (test code = WBC) 5.2 3.7-10.4 [place]282-06-28 12:33:00 Test Item Value Reference Range Interpretation Comments RBC (test code = RBC) 2.18 4.70-6.10 [place]282-06-28 12:33:00 Test Item Value Reference Range Interpretation Comments Hgb (test code = Hgb) 7.8 14.0-18.0 [place]282-06-28 12:33:00 Test Item Value Reference Range Interpretation Comments Hct (test code = Hct) 23.6 42.0-54.0 [place]282-06-28 12:33:00 Test Item Value Reference Range Interpretation Comments MCV (test code = MCV) 108.4 80.0-94.0 [place]282-06-28 12:33:00 Test Item Value Reference Range Interpretation Comments MCH (test code = MCH) 35.9 pg 27.0-31.0 [place]282-06-28 12:33:00 Test Item Value Reference Range Interpretation Comments MCHC (test code = MCHC) 33.1 32.0-36.0 [place]282-06-28 12:33:00 Test Item Value Reference Range Interpretation Comments RDW (test code = RDW) 21.5 11.5-14.5 [place]282-06-28 12:33:00 Test Item Value Reference Range Interpretation Comments Platelet (test code = Platelet) 167 133-450 [facility] HospitalCwgxcgtSHWLUWNQKG0170-66-67 12:33:00 Test Item Value Reference Range Interpretation Comments MPV (test code = MPV) 7.6 7.4-10.4 [place] [address]-06-28 12:33:00 Test Item Value Reference Range Interpretation Comments Segs (test code = Segs) 84.8 45.0-75.0 [place]282-06-28 12:33:00 Test Item Value Reference Range Interpretation Comments Lymphocytes (test code = Lymphocytes) 11.6 20.0-40.0 [place] [address]-06-28 12:33:00 Test Item Value Reference Range Interpretation Comments Monocytes (test code = Monocytes) 2.8 2.0-12.0 [place] [address]-06-28 12:33:00 Test Item Value Reference Range Interpretation Comments Eosinophils (test code = 0.4 See_Comment [A utomated message] The Eosinophils) system which ge nerated this result tra nsmitted reference range : <=4.0. The reference r samantha was not used to int erpret this result as normal/abnormal . [facility] HospitalEjdisrpVKGUVCZZWT2778-88-52 12:33:00 Test Item Value Reference Range Interpretation Comments Basophils (test code = 0.4 See_Comment [Aut omated message] The Basophils) system which ge nerated this result tra nsmitted reference range : <=1.0. The reference r samantha was not used to int erpret this result as normal/abnormal . [facility] HospitalGeqeoaaQULDZUWFZV0161-08-12 12:33:00 Test Item Value Reference Range Interpretation Comments Neutrophils # (test code = Neutrophils 4.4 1.5-8.1 #) [place]282-06-28 12:33:00 Test Item Value Reference Range Interpretation Comments Lymphocytes # (test code = Lymphocytes 0.6 1.0-5.5 #) [place]282-06-28 12:33:00 Test Item Value Reference Range Interpretation Comments Monocytes # (test code 0.1 See_Comment [Aut omated message] The = Monocytes #) system which generated this result tra nsmitted reference range : <=0.8. The reference r samantha was not used to int erpret this result as normal/abnormal . [facility] HospitalUmjuxmgXXJFQEVPOG4956-41-08 12:33:00 Test Item Value Reference Range Interpretation Comments Macrocyte (test code = 1+ *ABN*(11/25/21 Macrocyte) 7:33 AM) [facility] HospitalHfsjyjsEXAOYSNCUS0984-02-13 12:33:00 Test Item Value Reference Range Interpretation Comments WBC (test code = WBC) 5.2 3.7-10.4 [place]282-06-28 12:33:00 Test Item Value Reference Range Interpretation Comments RBC (test code = RBC) 2.18 4.70-6.10 [place]282-06-28 12:33:00 Test Item Value Reference Range Interpretation Comments Hgb (test code = Hgb) 7.8 14.0-18.0 [place]282-06-28 12:33:00 Test Item Value Reference Range Interpretation Comments Hct (test code = Hct) 23.6 42.0-54.0 [place] [address]-06-28 12:33:00 Test Item Value Reference Range Interpretation Comments MCV (test code = MCV) 108.4 80.0-94.0 [place] [address]-06-28 12:33:00 Test Item Value Reference Range Interpretation Comments MCH (test code = MCH) 35.9 pg 27.0-31.0 [place]282-06-28 12:33:00 Test Item Value Reference Range Interpretation Comments MCHC (test code = MCHC) 33.1 32.0-36.0 [place]282-06-28 12:33:00 Test Item Value Reference Range Interpretation Comments RDW (test code = RDW) 21.5 11.5-14.5 [place] [address]-06-28 12:33:00 Test Item Value Reference Range Interpretation Comments Platelet (test code = Platelet) 167 133-450 [place] 264282-06-28 12:33:00 Test Item Value Reference Range Interpretation Comments MPV (test code = MPV) 7.6 7.4-10.4 [place]282-06-28 12:33:00 Test Item Value Reference Range Interpretation Comments Segs (test code = Segs) 84.8 45.0-75.0 [place] [address]-06-28 12:33:00 Test Item Value Reference Range Interpretation Comments Lymphocytes (test code = Lymphocytes) 11.6 20.0-40.0 [place]282-06-28 12:33:00 Test Item Value Reference Range Interpretation Comments Monocytes (test code = Monocytes) 2.8 2.0-12.0 [place] [address]-06-28 12:33:00 Test Item Value Reference Range Interpretation Comments Eosinophils (test code = 0.4 See_Comment [A utomated message] The Eosinophils) system which ge nerated this result tra nsmitted reference range : <=4.0. The reference r samantha was not used to int erpret this result as normal/abnormal . [place] [address]-06-28 12:33:00 Test Item Value Reference Range Interpretation Comments Basophils (test code = 0.4 See_Comment [Aut omated message] The Basophils) system which ge nerated this result tra nsmitted reference range : <=1.0. The reference r samantha was not used to int erpret this result as normal/abnormal . [place]282-06-28 12:33:00 Test Item Value Reference Range Interpretation Comments Neutrophils # (test code = Neutrophils 4.4 1.5-8.1 #) [place]282-06-28 12:33:00 Test Item Value Reference Range Interpretation Comments Lymphocytes # (test code = Lymphocytes 0.6 1.0-5.5 #) [facility] HospitalMiwhqqhAPLONUXUUW8116-44-88 12:33:00 Test Item Value Reference Range Interpretation Comments Monocytes # (test code 0.1 See_Comment [Aut omated message] The = Monocytes #) system which generated this result tra nsmitted reference range : <=0.8. The reference r samantha was not used to int erpret this result as normal/abnormal . [place]282-06-28 12:33:00 Test Item Value Reference Range Interpretation Comments Macrocyte (test code = 1+ *ABN*(11/25/21 Macrocyte) 7:33 AM) [place]282-06-28 12:33:00 Test Item Value Reference Range Interpretation Comments WBC (test code = WBC) 5.2 3.7-10.4 [place]282-06-28 12:33:00 Test Item Value Reference Range Interpretation Comments RBC (test code = RBC) 2.18 4.70-6.10 [place]282-06-28 12:33:00 Test Item Value Reference Range Interpretation Comments Hgb (test code = Hgb) 7.8 14.0-18.0 [place] [address]-06-28 12:33:00 Test Item Value Reference Range Interpretation Comments Hct (test code = Hct) 23.6 42.0-54.0 [place] [address]-06-28 12:33:00 Test Item Value Reference Range Interpretation Comments MCV (test code = MCV) 108.4 80.0-94.0 [place] [address]-06-28 12:33:00 Test Item Value Reference Range Interpretation Comments MCH (test code = MCH) 35.9 pg 27.0-31.0 [place]282-06-28 12:33:00 Test Item Value Reference Range Interpretation Comments MCHC (test code = MCHC) 33.1 32.0-36.0 [facility] HospitalOipdvxvVTIJOWBONN6142-18-77 12:33:00 Test Item Value Reference Range Interpretation Comments RDW (test code = RDW) 21.5 11.5-14.5 [place]-06-28 12:33:00 Test Item Value Reference Range Interpretation Comments Platelet (test code = Platelet) 167 133-450 [facility] HospitalSzbrxbcTUUGEGLRWH4466-35-28 12:33:00 Test Item Value Reference Range Interpretation Comments MPV (test code = MPV) 7.6 7.4-10.4 [place]282-06-28 12:33:00 Test Item Value Reference Range Interpretation Comments Segs (test code = Segs) 84.8 45.0-75.0 [place]282-06-28 12:33:00 Test Item Value Reference Range Interpretation Comments Lymphocytes (test code = Lymphocytes) 11.6 20.0-40.0 [place]282-06-28 12:33:00 Test Item Value Reference Range Interpretation Comments Monocytes (test code = Monocytes) 2.8 2.0-12.0 [facility] HospitalZuymowbAPMOOJTXEM5505-74-83 12:33:00 Test Item Value Reference Range Interpretation Comments Eosinophils (test code = 0.4 See_Comment [A utomated message] The Eosinophils) system which ge nerated this result tra nsmitted reference range : <=4.0. The reference r samantha was not used to int erpret this result as normal/abnormal . [facility] HospitalLiumfllQDMORPQEOC5880-23-15 12:33:00 Test Item Value Reference Range Interpretation Comments Basophils (test code = 0.4 See_Comment [Aut omated message] The Basophils) system which ge nerated this result tra nsmitted reference range : <=1.0. The reference r samantha was not used to int erpret this result as normal/abnormal . [facility] HospitalQwhdwfpDQOKIZXJLX3588-55-88 12:33:00 Test Item Value Reference Range Interpretation Comments Neutrophils # (test code = Neutrophils 4.4 1.5-8.1 #) [facility] HospitalFakijnjYNVUQLUITP4574-96-39 12:33:00 Test Item Value Reference Range Interpretation Comments Lymphocytes # (test code = Lymphocytes 0.6 1.0-5.5 #) [facility] HospitalJfhhszmUIULMSLPRB7989-65-74 12:33:00 Test Item Value Reference Range Interpretation Comments Monocytes # (test code 0.1 See_Comment [Aut omated message] The = Monocytes #) system which generated this result tra nsmitted reference range : <=0.8. The reference r samantha was not used to int erpret this result as normal/abnormal . [facility] HospitalKsppjzhVSGXKOJFUT8441-31-30 12:33:00 Test Item Value Reference Range Interpretation Comments Macrocyte (test code = 1+ *ABN*(11/25/21 Macrocyte) 7:33 AM) [place]282-06-28 12:33:00 Test Item Value Reference Range Interpretation Comments WBC (test code = WBC) 5.2 3.7-10.4 [place]282-06-28 12:33:00 Test Item Value Reference Range Interpretation Comments RBC (test code = RBC) 2.18 4.70-6.10 [place]282-06-28 12:33:00 Test Item Value Reference Range Interpretation Comments Hgb (test code = Hgb) 7.8 14.0-18.0 [place]282-06-28 12:33:00 Test Item Value Reference Range Interpretation Comments Hct (test code = Hct) 23.6 42.0-54.0 [place]282-06-28 12:33:00 Test Item Value Reference Range Interpretation Comments MCV (test code = MCV) 108.4 80.0-94.0 [place] [address]-06-28 12:33:00 Test Item Value Reference Range Interpretation Comments MCH (test code = MCH) 35.9 pg 27.0-31.0 [place]282-06-28 12:33:00 Test Item Value Reference Range Interpretation Comments MCHC (test code = MCHC) 33.1 32.0-36.0 [place]282-06-28 12:33:00 Test Item Value Reference Range Interpretation Comments RDW (test code = RDW) 21.5 11.5-14.5 [place]282-06-28 12:33:00 Test Item Value Reference Range Interpretation Comments Platelet (test code = Platelet) 167 133-450 [place]282-06-28 12:33:00 Test Item Value Reference Range Interpretation Comments MPV (test code = MPV) 7.6 7.4-10.4 [place]282-06-28 12:33:00 Test Item Value Reference Range Interpretation Comments Segs (test code = Segs) 84.8 45.0-75.0 [place]282-06-28 12:33:00 Test Item Value Reference Range Interpretation Comments Lymphocytes (test code = Lymphocytes) 11.6 20.0-40.0 [place]282-06-28 12:33:00 Test Item Value Reference Range Interpretation Comments Monocytes (test code = Monocytes) 2.8 2.0-12.0 [place]282-06-28 12:33:00 Test Item Value Reference Range Interpretation Comments Eosinophils (test code = 0.4 See_Comment [A utomated message] The Eosinophils) system which ge nerated this result tra nsmitted reference range : <=4.0. The reference r samantha was not used to int erpret this result as normal/abnormal . [facility] HospitalUzgzyzrOCQPOMXYLZ4748-80-55 12:33:00 Test Item Value Reference Range Interpretation Comments Basophils (test code = 0.4 See_Comment [Aut omated message] The Basophils) system which ge nerated this result tra nsmitted reference range : <=1.0. The reference r samantha was not used to int erpret this result as normal/abnormal . [facility] HospitalQftquspZDSHJUMGJN8299-58-43 12:33:00 Test Item Value Reference Range Interpretation Comments Neutrophils # (test code = Neutrophils 4.4 1.5-8.1 #) [place]282-06-28 12:33:00 Test Item Value Reference Range Interpretation Comments Lymphocytes # (test code = Lymphocytes 0.6 1.0-5.5 #) [place] [address]-06-28 12:33:00 Test Item Value Reference Range Interpretation Comments Monocytes # (test code 0.1 See_Comment [Aut omated message] The = Monocytes #) system which generated this result tra nsmitted reference range : <=0.8. The reference r samantha was not used to int erpret this result as normal/abnormal . [place] [address]-06-28 12:33:00 Test Item Value Reference Range Interpretation Comments Macrocyte (test code = 1+ *ABN*(11/25/21 Macrocyte) 7:33 AM) [facility] 12:33:00 Test Item Value Reference Range Interpretation Comments WBC (test code = WBC) 5.2 3.7-10.4 [place] 264282-06-28 12:33:00 Test Item Value Reference Range Interpretation Comments RBC (test code = RBC) 2.18 4.70-6.10 [facility]BymimimCLDDCWZJOP1598-14-47 12:33:00 Test Item Value Reference Range Interpretation Comments Hgb (test code = Hgb) 7.8 14.0-18.0 [facility] HospitalTccqhvkWMPMAWMWSK8065-68-84 12:33:00 Test Item Value Reference Range Interpretation Comments Hct (test code = Hct) 23.6 42.0-54.0 [facility] HospitalPtjkeqaWQCPLEFFLU9404-81-72 12:33:00 Test Item Value Reference Range Interpretation Comments MCV (test code = MCV) 108.4 80.0-94.0 [facility] HospitalMctievgQPRIVAZOTF1923-14-19 12:33:00 Test Item Value Reference Range Interpretation Comments MCH (test code = MCH) 35.9 pg 27.0-31.0 [facility] HospitalNuyfolfRQWBXJWIIA6142-23-77 12:33:00 Test Item Value Reference Range Interpretation Comments MCHC (test code = MCHC) 33.1 32.0-36.0 [facility] HospitalHncensvXNXECHSYXN7324-87-86 12:33:00 Test Item Value Reference Range Interpretation Comments RDW (test code = RDW) 21.5 11.5-14.5 [facility] HospitalSclmjacHQWCDOYEMM2019-42-24 12:33:00 Test Item Value Reference Range Interpretation Comments Platelet (test code = Platelet) 167 133-450 [facility] HospitalAnfxvlrFCXVDGKOYF6875-22-86 12:33:00 Test Item Value Reference Range Interpretation Comments MPV (test code = MPV) 7.6 7.4-10.4 [facility]2022-06-28 11:17:00 Test Item Value Reference Range Interpretation Comments Vitamin B12 Lvl (test code = Vitamin 1508 B12 Lvl) [facility]2022-06-28 11:17:00 Test Item Value Reference Range Interpretation Comments Folate Lvl (test code = Folate Lvl) 22.3 [facility]2022-06-28 11:17:00 Test Item Value Reference Range Interpretation Comments Ferritin Lvl (test code = Ferritin Lvl) 1423 22-275 [facility]2022-06-28 11:17:00 Test Item Value Reference Range Interpretation Comments Glucose Lvl (test code = Glucose Lvl) 205 70-99 [facility]2022-06-28 11:17:00 Test Item Value Reference Range Interpretation Comments BUN (test code = BUN) 60 7-22 [facility]2022-06-28 11:17:00 Test Item Value Reference Range Interpretation Comments Creatinine Lvl (test code = Creatinine 8.46 0.50-1.40 Lvl) [facility]2022-06-28 11:17:00 Test Item Value Reference Range Interpretation Comments Sodium Lvl (test code = Sodium Lvl) 131 135-145 [facility]2022-06-28 11:17:00 Test Item Value Reference Range Interpretation Comments Potassium Lvl (test code = Potassium 5.2 3.5-5.1 Lvl) [facility]2022-06-28 11:17:00 Test Item Value Reference Range Interpretation Comments Chloride Lvl (test code = Chloride Lvl) 93 95-109 [facility]2022-06-28 11:17:00 Test Item Value Reference Range Interpretation Comments CO2 (test code = CO2) 29 24-32 [place] 412362-06-28 11:17:00 Test Item Value Reference Range Interpretation Comments Calcium Lvl (test code = Calcium Lvl) 8.7 8.5-10.5 [place] 412362-06-28 11:17:00 Test Item Value Reference Range Interpretation Comments Total Protein (test code = Total 6.0 6.4-8.4 Protein) [place] 412362-06-28 11:17:00 Test Item Value Reference Range Interpretation Comments Albumin Lvl (test code = Albumin Lvl) 2.6 3.5-5.0 [facility]2022-06-28 11:17:00 Test Item Value Reference Range Interpretation Comments ALT (test code = ALT) 43 See_Comment [Auto mated message] The system which ge nerated this result transmit swathi reference range : <=65. The reference range was not used to interpr et this result as deny l/abnormal. [facility] [employer] [id number] 11:17:00 Test Item Value Reference Range Interpretation Comments AST (test code = AST) 35 See_Comment [Auto mated message] The system which ge nerated this result transmit swathi reference range : <=37. The reference range was not used to interpr et this result as deny l/abnormal. [facility] [employer] [id number] 11:17:00 Test Item Value Reference Range Interpretation Comments Alk Phos (test code = Alk Phos) 385 39-136 [facility] [employer] [id number] 11:17:00 Test Item Value Reference Range Interpretation Comments Bili Total (test code = Bili Total) 1.2 0.2-1.3 [facility] [employer] [id number] 11:17:00 Test Item Value Reference Range Interpretation Comments AGAP (test code = AGAP) 14.2 10.0-20.0 [facility] [employer] [id number] 11:17:00 Test Item Value Reference Range Interpretation Comments B/C Ratio (test code = B/C Ratio) 7 1 6-25 [facility] [employer] [id number] 11:17:00 Test Item Value Reference Range Interpretation Comments Globulin (test code = Globulin) 3.4 2.7-4.2 [facility] [employer] [id number] 11:17:00 Test Item Value Reference Range Interpretation Comments A/G Ratio (test code = A/G Ratio) 0.8 1 0.7-1.6 [facility] [employer] [id number] 11:17:00 Test Item Value Reference Range Interpretation Comments eGFR (test code = eGFR) 6 [facility] [employer] [id number] 11:17:00 Test Item Value Reference Range Interpretation Comments Magnesium Lvl (test code = Magnesium 1.9 1.8-2.4 Lvl) [facility] [id number] 11:17:00 Test Item Value Reference Range Interpretation Comments LDH (test code = LDH) 297 98-192 [facility] [employer] [id number] 11:17:00 Test Item Value Reference Range Interpretation Comments Procalcitonin Lvl (test 0.63 See_Comment [Au tomated message] code = Procalcitonin Lvl) Th e system which generated this result transmitted ref erence range: <=0.10. The reference range was not used to interpr et this result as normal/abnormal . [facility] HospitalKxxozkeQMVLRIVPBK3822-71-55 11:17:00 Test Item Value Reference Range Interpretation Comments D-Dimer (test code = D-Dimer) 5.33 [place] 007042-06-28 11:17:00 Test Item Value Reference Range Interpretation Comments Hep Bs Ag (test code Negative *NA*(11/25/21 = Hep Bs Ag) 6:17 AM) [place] 007042-06-28 11:17:00 Test Item Value Reference Range Interpretation Comments C-REACTIVE PROTEIN (test code = 134.0 C-REACTIVE PROTEIN) [place] 007042-06-28 11:17:00 Test Item Value Reference Range Interpretation Comments Interleukin 6 (test code = Interleukin 25.99 6) [facility]2022-06-28 11:17:00 Test Item Value Reference Range Interpretation Comments Vitamin B12 Lvl (test code = Vitamin 1508 B12 Lvl) [facility]2022-06-28 11:17:00 Test Item Value Reference Range Interpretation Comments Folate Lvl (test code = Folate Lvl) 22.3 [facility]2022-06-28 11:17:00 Test Item Value Reference Range Interpretation Comments Ferritin Lvl (test code = Ferritin Lvl) 1423 22-275 [facility]2022-06-28 11:17:00 Test Item Value Reference Range Interpretation Comments Glucose Lvl (test code = Glucose Lvl) 205 70-99 [facility]2022-06-28 11:17:00 Test Item Value Reference Range Interpretation Comments BUN (test code = BUN) 60 7-22 [facility]2022-06-28 11:17:00 Test Item Value Reference Range Interpretation Comments Creatinine Lvl (test code = Creatinine 8.46 0.50-1.40 Lvl) [facility]2022-06-28 11:17:00 Test Item Value Reference Range Interpretation Comments Sodium Lvl (test code = Sodium Lvl) 131 135-145 [place] 412362-06-28 11:17:00 Test Item Value Reference Range Interpretation Comments Potassium Lvl (test code = Potassium 5.2 3.5-5.1 Lvl) [place] 412362-06-28 11:17:00 Test Item Value Reference Range Interpretation Comments Chloride Lvl (test code = Chloride Lvl) 93 95-109 [place] 412362-06-28 11:17:00 Test Item Value Reference Range Interpretation Comments CO2 (test code = CO2) 29 24-32 [place] 412362-06-28 11:17:00 Test Item Value Reference Range Interpretation Comments Calcium Lvl (test code = Calcium Lvl) 8.7 8.5-10.5 [place] 412362-06-28 11:17:00 Test Item Value Reference Range Interpretation Comments Total Protein (test code = Total 6.0 6.4-8.4 Protein) [place] 412362-06-28 11:17:00 Test Item Value Reference Range Interpretation Comments Albumin Lvl (test code = Albumin Lvl) 2.6 3.5-5.0 [place] 412362-06-28 11:17:00 Test Item Value Reference Range Interpretation Comments ALT (test code = ALT) 43 See_Comment [Auto mated message] The system which ge nerated this result transmit swathi reference range : <=65. The reference range was not used to interpr et this result as deny l/abnormal. [place] 412362-06-28 11:17:00 Test Item Value Reference Range Interpretation Comments AST (test code = AST) 35 See_Comment [Auto mated message] The system which ge nerated this result transmit swathi reference range : <=37. The reference range was not used to interpr et this result as deny l/abnormal. [place] 412362-06-28 11:17:00 Test Item Value Reference Range Interpretation Comments Alk Phos (test code = Alk Phos) 385 39-136 [place] 412362-06-28 11:17:00 Test Item Value Reference Range Interpretation Comments Bili Total (test code = Bili Total) 1.2 0.2-1.3 [place] 412362-06-28 11:17:00 Test Item Value Reference Range Interpretation Comments AGAP (test code = AGAP) 14.2 10.0-20.0 [facility]2022-06-28 11:17:00 Test Item Value Reference Range Interpretation Comments B/C Ratio (test code = B/C Ratio) 7 1 6-25 [facility]2022-06-28 11:17:00 Test Item Value Reference Range Interpretation Comments Globulin (test code = Globulin) 3.4 2.7-4.2 [facility]2022-06-28 11:17:00 Test Item Value Reference Range Interpretation Comments A/G Ratio (test code = A/G Ratio) 0.8 1 0.7-1.6 [place] 412362-06-28 11:17:00 Test Item Value Reference Range Interpretation Comments eGFR (test code = eGFR) 6 [facility]2022-06-28 11:17:00 Test Item Value Reference Range Interpretation Comments Magnesium Lvl (test code = Magnesium 1.9 1.8-2.4 Lvl) [place] 412362-06-28 11:17:00 Test Item Value Reference Range Interpretation Comments LDH (test code = LDH) 297 98-192 [facility]2022-06-28 11:17:00 Test Item Value Reference Range Interpretation Comments Procalcitonin Lvl (test 0.63 See_Comment [Au tomated message] code = Procalcitonin Lvl) Th e system which generated this result transmitted ref erence range: <=0.10. The reference range was not used to interpr et this result as normal/abnormal . [facility]TfxloyfOKPWOGIQLL6987-81-92 11:17:00 Test Item Value Reference Range Interpretation Comments D-Dimer (test code = D-Dimer) 5.33 [facility]61[facility] 11:17:00 Test Item Value Reference Range Interpretation Comments Hep Bs Ag (test code Negative *NA*(11/25/21 = Hep Bs Ag) 6:17 AM) [place] 007042-06-28 11:17:00 Test Item Value Reference Range Interpretation Comments C-REACTIVE PROTEIN (test code = 134.0 C-REACTIVE PROTEIN) [place] 007042-06-28 11:17:00 Test Item Value Reference Range Interpretation Comments Interleukin 6 (test code = Interleukin 25.99 6) [facility]2022-06-28 11:17:00 Test Item Value Reference Range Interpretation Comments Vitamin B12 Lvl (test code = Vitamin 1508 B12 Lvl) [facility]2022-06-28 11:17:00 Test Item Value Reference Range Interpretation Comments Folate Lvl (test code = Folate Lvl) 22.3 [facility]2022-06-28 11:17:00 Test Item Value Reference Range Interpretation Comments Ferritin Lvl (test code = Ferritin Lvl) 1423 22-275 [facility]2022-06-28 11:17:00 Test Item Value Reference Range Interpretation Comments Glucose Lvl (test code = Glucose Lvl) 205 70-99 [place] 412362-06-28 11:17:00 Test Item Value Reference Range Interpretation Comments BUN (test code = BUN) 60 7-22 [place] 412362-06-28 11:17:00 Test Item Value Reference Range Interpretation Comments Creatinine Lvl (test code = Creatinine 8.46 0.50-1.40 Lvl) [facility]2022-06-28 11:17:00 Test Item Value Reference Range Interpretation Comments Sodium Lvl (test code = Sodium Lvl) 131 135-145 [place] 412362-06-28 11:17:00 Test Item Value Reference Range Interpretation Comments Potassium Lvl (test code = Potassium 5.2 3.5-5.1 Lvl) [place] 412362-06-28 11:17:00 Test Item Value Reference Range Interpretation Comments Chloride Lvl (test code = Chloride Lvl) 93 95-109 [place] 412362-06-28 11:17:00 Test Item Value Reference Range Interpretation Comments CO2 (test code = CO2) 29 24-32 [place] 412362-06-28 11:17:00 Test Item Value Reference Range Interpretation Comments Calcium Lvl (test code = Calcium Lvl) 8.7 8.5-10.5 [facility]2022-06-28 11:17:00 Test Item Value Reference Range Interpretation Comments Total Protein (test code = Total 6.0 6.4-8.4 Protein) [place] 412362-06-28 11:17:00 Test Item Value Reference Range Interpretation Comments Albumin Lvl (test code = Albumin Lvl) 2.6 3.5-5.0 [facility] [employer] [id number] 11:17:00 Test Item Value Reference Range Interpretation Comments ALT (test code = ALT) 43 See_Comment [Auto mated message] The system which ge nerated this result transmit swathi reference range : <=65. The reference range was not used to interpr et this result as deny l/abnormal. [facility] [employer] [id number] 11:17:00 Test Item Value Reference Range Interpretation Comments AST (test code = AST) 35 See_Comment [Auto mated message] The system which ge nerated this result transmit swathi reference range : <=37. The reference range was not used to interpr et this result as deny l/abnormal. [facility] [employer] [id number] 11:17:00 Test Item Value Reference Range Interpretation Comments Alk Phos (test code = Alk Phos) 385 39-136 [facility] [employer] [id number] 11:17:00 Test Item Value Reference Range Interpretation Comments Bili Total (test code = Bili Total) 1.2 0.2-1.3 [facility] [id number] 11:17:00 Test Item Value Reference Range Interpretation Comments AGAP (test code = AGAP) 14.2 10.0-20.0 [facility] [employer] [id number] 11:17:00 Test Item Value Reference Range Interpretation Comments B/C Ratio (test code = B/C Ratio) 7 1 6-25 [facility] [id number] 11:17:00 Test Item Value Reference Range Interpretation Comments Globulin (test code = Globulin) 3.4 2.7-4.2 [facility] [employer] [id number] 11:17:00 Test Item Value Reference Range Interpretation Comments A/G Ratio (test code = A/G Ratio) 0.8 1 0.7-1.6 [facility] [employer] [id number] 11:17:00 Test Item Value Reference Range Interpretation Comments eGFR (test code = eGFR) 6 [facility] [employer] [id number] 11:17:00 Test Item Value Reference Range Interpretation Comments Magnesium Lvl (test code = Magnesium 1.9 1.8-2.4 Lvl) [facility]2022-06-28 11:17:00 Test Item Value Reference Range Interpretation Comments LDH (test code = LDH) 297 98-192 [facility]2022-06-28 11:17:00 Test Item Value Reference Range Interpretation Comments Procalcitonin Lvl (test 0.63 See_Comment [Au tomated message] code = Procalcitonin Lvl) e system which generated this result transmitted ref erence range: <=0.10. The reference range was not used to interpr et this result as normal/abnormal . [facility]wkkmyzCRYNHPTHID5560-44-30 11:17:00 Test Item Value Reference Range Interpretation Comments D-Dimer (test code = D-Dimer) 5.33 [place] 007042-06-28 11:17:00 Test Item Value Reference Range Interpretation Comments Hep Bs Ag (test code Negative *NA*(11/25/21 = Hep Bs Ag) 6:17 AM) [place] 007042-06-28 11:17:00 Test Item Value Reference Range Interpretation Comments C-REACTIVE PROTEIN (test code = 134.0 C-REACTIVE PROTEIN) [id number] 11:17:00 Test Item Value Reference Range Interpretation Comments Interleukin 6 (test code = Interleukin 25.99 6) [facility]2022-06-28 11:17:00 Test Item Value Reference Range Interpretation Comments Vitamin B12 Lvl (test code = Vitamin 1508 B12 Lvl) [facility]2022-06-28 11:17:00 Test Item Value Reference Range Interpretation Comments Folate Lvl (test code = Folate Lvl) 22.3 [facility]2022-06-28 11:17:00 Test Item Value Reference Range Interpretation Comments Ferritin Lvl (test code = Ferritin Lvl) 1423 22-275 [facility]2022-06-28 11:17:00 Test Item Value Reference Range Interpretation Comments Glucose Lvl (test code = Glucose Lvl) 205 70-99 [facility]2022-06-28 11:17:00 Test Item Value Reference Range Interpretation Comments BUN (test code = BUN) 60 7-22 [facility]2022-06-28 11:17:00 Test Item Value Reference Range Interpretation Comments Creatinine Lvl (test code = Creatinine 8.46 0.50-1.40 Lvl) [place] 412362-06-28 11:17:00 Test Item Value Reference Range Interpretation Comments Sodium Lvl (test code = Sodium Lvl) 131 135-145 [place] 412362-06-28 11:17:00 Test Item Value Reference Range Interpretation Comments Potassium Lvl (test code = Potassium 5.2 3.5-5.1 Lvl) [place] 412362-06-28 11:17:00 Test Item Value Reference Range Interpretation Comments Chloride Lvl (test code = Chloride Lvl) 93 95-109 [place] 412362-06-28 11:17:00 Test Item Value Reference Range Interpretation Comments CO2 (test code = CO2) 29 24-32 [place] 412362-06-28 11:17:00 Test Item Value Reference Range Interpretation Comments Calcium Lvl (test code = Calcium Lvl) 8.7 8.5-10.5 [place] 412362-06-28 11:17:00 Test Item Value Reference Range Interpretation Comments Total Protein (test code = Total 6.0 6.4-8.4 Protein) [place] 412362-06-28 11:17:00 Test Item Value Reference Range Interpretation Comments Albumin Lvl (test code = Albumin Lvl) 2.6 3.5-5.0 [place] 412362-06-28 11:17:00 Test Item Value Reference Range Interpretation Comments ALT (test code = ALT) 43 See_Comment [Auto mated message] The system which ge nerated this result transmit swathi reference range : <=65. The reference range was not used to interpr et this result as deny l/abnormal. [place] 412362-06-28 11:17:00 Test Item Value Reference Range Interpretation Comments AST (test code = AST) 35 See_Comment [Auto mated message] The system which ge nerated this result transmit swathi reference range : <=37. The reference range was not used to interpr et this result as deny l/abnormal. [place] 412362-06-28 11:17:00 Test Item Value Reference Range Interpretation Comments Alk Phos (test code = Alk Phos) 385 39-136 [place] 412362-06-28 11:17:00 Test Item Value Reference Range Interpretation Comments Bili Total (test code = Bili Total) 1.2 0.2-1.3 [facility]2022-06-28 11:17:00 Test Item Value Reference Range Interpretation Comments AGAP (test code = AGAP) 14.2 10.0-20.0 [place] 412362-06-28 11:17:00 Test Item Value Reference Range Interpretation Comments B/C Ratio (test code = B/C Ratio) 7 1 6-25 [facility]2022-06-28 11:17:00 Test Item Value Reference Range Interpretation Comments Globulin (test code = Globulin) 3.4 2.7-4.2 [place] 412362-06-28 11:17:00 Test Item Value Reference Range Interpretation Comments A/G Ratio (test code = A/G Ratio) 0.8 1 0.7-1.6 [facility]2022-06-28 11:17:00 Test Item Value Reference Range Interpretation Comments eGFR (test code = eGFR) 6 [facility]2022-06-28 11:17:00 Test Item Value Reference Range Interpretation Comments Magnesium Lvl (test code = Magnesium 1.9 1.8-2.4 Lvl) [facility]2022-06-28 11:17:00 Test Item Value Reference Range Interpretation Comments LDH (test code = LDH) 297 98-192 [facility]2022-06-28 11:17:00 Test Item Value Reference Range Interpretation Comments Procalcitonin Lvl (test 0.63 See_Comment [Au tomated message] code = Procalcitonin Lvl) Th e system which generated this result transmitted ref erence range: <=0.10. The reference range was not used to interpr et this result as normal/abnormal . [facility]dlpcclOSZQQMXCFU5048-46-13 11:17:00 Test Item Value Reference Range Interpretation Comments D-Dimer (test code = D-Dimer) 5.33 [facility]vaKIPFEWKAJI3243-21-80 11:17:00 Test Item Value Reference Range Interpretation Comments Hep Bs Ag (test code Negative *NA*(11/25/21 = Hep Bs Ag) 6:17 AM) [facility]KhlkiopGSFPAZONFZ5571-01-65 11:17:00 Test Item Value Reference Range Interpretation Comments C-REACTIVE PROTEIN (test code = 134.0 C-REACTIVE PROTEIN) [facility]evilleFcredzaLQXATETQGK0872-41-75 11:17:00 Test Item Value Reference Range Interpretation Comments Interleukin 6 (test code = Interleukin 25.99 6) [facility]2022-06-28 11:17:00 Test Item Value Reference Range Interpretation Comments Vitamin B12 Lvl (test code = Vitamin 1508 B12 Lvl) [facility]2022-06-28 11:17:00 Test Item Value Reference Range Interpretation Comments Folate Lvl (test code = Folate Lvl) 22.3 [facility]2022-06-28 11:17:00 Test Item Value Reference Range Interpretation Comments Ferritin Lvl (test code = Ferritin Lvl) 1423 22-275 [facility]2022-06-28 11:17:00 Test Item Value Reference Range Interpretation Comments Glucose Lvl (test code = Glucose Lvl) 205 70-99 [facility]2022-06-28 11:17:00 Test Item Value Reference Range Interpretation Comments BUN (test code = BUN) 60 7-22 [facility]2022-06-28 11:17:00 Test Item Value Reference Range Interpretation Comments Creatinine Lvl (test code = Creatinine 8.46 0.50-1.40 Lvl) [facility]2022-06-28 11:17:00 Test Item Value Reference Range Interpretation Comments Sodium Lvl (test code = Sodium Lvl) 131 135-145 [facility]2022-06-28 11:17:00 Test Item Value Reference Range Interpretation Comments Potassium Lvl (test code = Potassium 5.2 3.5-5.1 Lvl) [facility]2022-06-28 11:17:00 Test Item Value Reference Range Interpretation Comments Chloride Lvl (test code = Chloride Lvl) 93 95-109 [facility]2022-06-28 11:17:00 Test Item Value Reference Range Interpretation Comments CO2 (test code = CO2) 29 24-32 [facility]2022-06-28 11:17:00 Test Item Value Reference Range Interpretation Comments Calcium Lvl (test code = Calcium Lvl) 8.7 8.5-10.5 [place] 412362-06-28 11:17:00 Test Item Value Reference Range Interpretation Comments Total Protein (test code = Total 6.0 6.4-8.4 Protein) [place] 412362-06-28 11:17:00 Test Item Value Reference Range Interpretation Comments Albumin Lvl (test code = Albumin Lvl) 2.6 3.5-5.0 [facility]2022-06-28 11:17:00 Test Item Value Reference Range Interpretation Comments ALT (test code = ALT) 43 See_Comment [Auto mated message] The system which ge nerated this result transmit swathi reference range : <=65. The reference range was not used to interpr et this result as deny l/abnormal. [facility] [id number] 11:17:00 Test Item Value Reference Range Interpretation Comments AST (test code = AST) 35 See_Comment [Auto mated message] The system which ge nerated this result transmit swathi reference range : <=37. The reference range was not used to interpr et this result as deny l/abnormal. [facility] [id number] 11:17:00 Test Item Value Reference Range Interpretation Comments Alk Phos (test code = Alk Phos) 385 39-136 [facility] [id number] 11:17:00 Test Item Value Reference Range Interpretation Comments Bili Total (test code = Bili Total) 1.2 0.2-1.3 [facility]2022-06-28 11:17:00 Test Item Value Reference Range Interpretation Comments AGAP (test code = AGAP) 14.2 10.0-20.0 [facility] [id number] 11:17:00 Test Item Value Reference Range Interpretation Comments B/C Ratio (test code = B/C Ratio) 7 1 6-25 [facility] [id number] 11:17:00 Test Item Value Reference Range Interpretation Comments Globulin (test code = Globulin) 3.4 2.7-4.2 [facility] [id number] 11:17:00 Test Item Value Reference Range Interpretation Comments A/G Ratio (test code = A/G Ratio) 0.8 1 0.7-1.6 [facility] [id number] 11:17:00 Test Item Value Reference Range Interpretation Comments eGFR (test code = eGFR) 6 [facility]2022-06-28 11:17:00 Test Item Value Reference Range Interpretation Comments Magnesium Lvl (test code = Magnesium 1.9 1.8-2.4 Lvl) [facility]2022-06-28 11:17:00 Test Item Value Reference Range Interpretation Comments LDH (test code = LDH) 297 98-192 [facility]2022-06-28 11:17:00 Test Item Value Reference Range Interpretation Comments Procalcitonin Lvl (test 0.63 See_Comment [Au tomated message] code = Procalcitonin Lvl) e system which generated this result transmitted ref erence range: <=0.10. The reference range was not used to interpr et this result as normal/abnormal . [facility] 11:17:00 Test Item Value Reference Range Interpretation Comments D-Dimer (test code = D-Dimer) 5.33 [id number] 11:17:00 Test Item Value Reference Range Interpretation Comments Hep Bs Ag (test code Negative *NA*(11/25/21 = Hep Bs Ag) 6:17 AM) [facility]9581[facility] 11:17:00 Test Item Value Reference Range Interpretation Comments C-REACTIVE PROTEIN (test code = 134.0 C-REACTIVE PROTEIN) [facility]gknqvtPAUOFEZSUW3178-85-13 11:17:00 Test Item Value Reference Range Interpretation Comments Interleukin 6 (test code = Interleukin 25.99 6) [facility]2022-06-28 11:17:00 Test Item Value Reference Range Interpretation Comments Vitamin B12 Lvl (test code = Vitamin 1508 B12 Lvl) [facility]2022-06-28 11:17:00 Test Item Value Reference Range Interpretation Comments Folate Lvl (test code = Folate Lvl) 22.3 [facility]2022-06-28 11:17:00 Test Item Value Reference Range Interpretation Comments Ferritin Lvl (test code = Ferritin Lvl) 1423 28-151 [facility]2022-06-28 11:17:00 Test Item Value Reference Range Interpretation Comments Glucose Lvl (test code = Glucose Lvl) 205 70-99 [facility]2022-06-28 11:17:00 Test Item Value Reference Range Interpretation Comments BUN (test code = BUN) 60 7-22 [place] 412362-06-28 11:17:00 Test Item Value Reference Range Interpretation Comments Creatinine Lvl (test code = Creatinine 8.46 0.50-1.40 Lvl) [place] 412362-06-28 11:17:00 Test Item Value Reference Range Interpretation Comments Sodium Lvl (test code = Sodium Lvl) 131 135-145 [place] 412362-06-28 11:17:00 Test Item Value Reference Range Interpretation Comments Potassium Lvl (test code = Potassium 5.2 3.5-5.1 Lvl) [place] 412362-06-28 11:17:00 Test Item Value Reference Range Interpretation Comments Chloride Lvl (test code = Chloride Lvl) 93 95-109 [place] 412362-06-28 11:17:00 Test Item Value Reference Range Interpretation Comments CO2 (test code = CO2) 29 24-32 [place] 412362-06-28 11:17:00 Test Item Value Reference Range Interpretation Comments Calcium Lvl (test code = Calcium Lvl) 8.7 8.5-10.5 [place] 412362-06-28 11:17:00 Test Item Value Reference Range Interpretation Comments Total Protein (test code = Total 6.0 6.4-8.4 Protein) [place] 412362-06-28 11:17:00 Test Item Value Reference Range Interpretation Comments Albumin Lvl (test code = Albumin Lvl) 2.6 3.5-5.0 [place] 412362-06-28 11:17:00 Test Item Value Reference Range Interpretation Comments ALT (test code = ALT) 43 See_Comment [Auto mated message] The system which ge nerated this result transmit swathi reference range : <=65. The reference range was not used to interpr et this result as deny l/abnormal. [place] 412362-06-28 11:17:00 Test Item Value Reference Range Interpretation Comments AST (test code = AST) 35 See_Comment [Auto mated message] The system which ge nerated this result transmit swathi reference range : <=37. The reference range was not used to interpr et this result as deny l/abnormal. [place] 412362-06-28 11:17:00 Test Item Value Reference Range Interpretation Comments Alk Phos (test code = Alk Phos) 385 39-136 [facility]2022-06-28 11:17:00 Test Item Value Reference Range Interpretation Comments Bili Total (test code = Bili Total) 1.2 0.2-1.3 [facility]2022-06-28 11:17:00 Test Item Value Reference Range Interpretation Comments AGAP (test code = AGAP) 14.2 10.0-20.0 [facility]2022-06-28 11:17:00 Test Item Value Reference Range Interpretation Comments B/C Ratio (test code = B/C Ratio) 7 1 6-25 [facility]2022-06-28 11:17:00 Test Item Value Reference Range Interpretation Comments Globulin (test code = Globulin) 3.4 2.7-4.2 [facility]2022-06-28 11:17:00 Test Item Value Reference Range Interpretation Comments A/G Ratio (test code = A/G Ratio) 0.8 1 0.7-1.6 [facility]2022-06-28 11:17:00 Test Item Value Reference Range Interpretation Comments eGFR (test code = eGFR) 6 [facility]2022-06-28 11:17:00 Test Item Value Reference Range Interpretation Comments Magnesium Lvl (test code = Magnesium 1.9 1.8-2.4 Lvl) [facility]2022-06-28 11:17:00 Test Item Value Reference Range Interpretation Comments LDH (test code = LDH) 297 98-192 [facility]2022-06-28 11:17:00 Test Item Value Reference Range Interpretation Comments Procalcitonin Lvl (test 0.63 See_Comment [Au tomated message] code = Procalcitonin Lvl) Th e system which generated this result transmitted ref erence range: <=0.10. The reference range was not used to interpr et this result as normal/abnormal . [facility]DrhgtcpPWTXALIIQC6418-33-76 11:17:00 Test Item Value Reference Range Interpretation Comments D-Dimer (test code = D-Dimer) 5.33 [facility]qbglkhBSRRVVURDK2373-19-65 11:17:00 Test Item Value Reference Range Interpretation Comments Hep Bs Ag (test code Negative *NA*(11/25/21 = Hep Bs Ag) 6:17 AM) [facility]LxzclonDAGKSBMQVP9028-70-48 11:17:00 Test Item Value Reference Range Interpretation Comments C-REACTIVE PROTEIN (test code = 134.0 C-REACTIVE PROTEIN) [facility]JtvkidpODOMTMFOWQ8097-00-74 11:17:00 Test Item Value Reference Range Interpretation Comments Interleukin 6 (test code = Interleukin 25.99 6) [facility]2022-06-28 11:17:00 Test Item Value Reference Range Interpretation Comments Vitamin B12 Lvl (test code = Vitamin 1508 B12 Lvl) [facility]2022-06-28 11:17:00 Test Item Value Reference Range Interpretation Comments Folate Lvl (test code = Folate Lvl) 22.3 [facility]2022-06-28 11:17:00 Test Item Value Reference Range Interpretation Comments Ferritin Lvl (test code = Ferritin Lvl) 1423 22275 [facility]2022-06-28 11:17:00 Test Item Value Reference Range Interpretation Comments Glucose Lvl (test code = Glucose Lvl) 205 70-99 [facility]2022-06-28 11:17:00 Test Item Value Reference Range Interpretation Comments BUN (test code = BUN) 60 7-22 [facility]2022-06-28 11:17:00 Test Item Value Reference Range Interpretation Comments Creatinine Lvl (test code = Creatinine 8.46 0.50-1.40 Lvl) [facility]2022-06-28 11:17:00 Test Item Value Reference Range Interpretation Comments Sodium Lvl (test code = Sodium Lvl) 131 135-145 [facility]2022-06-28 11:17:00 Test Item Value Reference Range Interpretation Comments Potassium Lvl (test code = Potassium 5.2 3.5-5.1 Lvl) [facility]2022-06-28 11:17:00 Test Item Value Reference Range Interpretation Comments Chloride Lvl (test code = Chloride Lvl) 93 95-109 [place] 412362-06-28 11:17:00 Test Item Value Reference Range Interpretation Comments CO2 (test code = CO2) 29 24-32 [place] 412362-06-28 11:17:00 Test Item Value Reference Range Interpretation Comments Calcium Lvl (test code = Calcium Lvl) 8.7 8.5-10.5 [place] 412362-06-28 11:17:00 Test Item Value Reference Range Interpretation Comments Total Protein (test code = Total 6.0 6.4-8.4 Protein) [place] 412362-06-28 11:17:00 Test Item Value Reference Range Interpretation Comments Albumin Lvl (test code = Albumin Lvl) 2.6 3.5-5.0 [place] 412362-06-28 11:17:00 Test Item Value Reference Range Interpretation Comments ALT (test code = ALT) 43 See_Comment [Auto mated message] The system which ge nerated this result transmit swathi reference range : <=65. The reference range was not used to interpr et this result as deny l/abnormal. [place] 412362-06-28 11:17:00 Test Item Value Reference Range Interpretation Comments AST (test code = AST) 35 See_Comment [Auto mated message] The system which ge nerated this result transmit swathi reference range : <=37. The reference range was not used to interpr et this result as deny l/abnormal. [facility] [id number] 11:17:00 Test Item Value Reference Range Interpretation Comments Alk Phos (test code = Alk Phos) 385 39-136 [facility] [id number] 11:17:00 Test Item Value Reference Range Interpretation Comments Bili Total (test code = Bili Total) 1.2 0.2-1.3 [facility] [id number] 11:17:00 Test Item Value Reference Range Interpretation Comments AGAP (test code = AGAP) 14.2 10.0-20.0 [facility] [id number] 11:17:00 Test Item Value Reference Range Interpretation Comments B/C Ratio (test code = B/C Ratio) 7 1 6-25 [facility] [id number] 11:17:00 Test Item Value Reference Range Interpretation Comments Globulin (test code = Globulin) 3.4 2.7-4.2 [facility] [id number] 11:17:00 Test Item Value Reference Range Interpretation Comments A/G Ratio (test code = A/G Ratio) 0.8 1 0.7-1.6 [facility]2022-06-28 11:17:00 Test Item Value Reference Range Interpretation Comments eGFR (test code = eGFR) 6 [facility]2022-06-28 11:17:00 Test Item Value Reference Range Interpretation Comments Magnesium Lvl (test code = Magnesium 1.9 1.8-2.4 Lvl) [place] 412362-06-28 11:17:00 Test Item Value Reference Range Interpretation Comments LDH (test code = LDH) 297 98-192 [facility]2022-06-28 11:17:00 Test Item Value Reference Range Interpretation Comments Vitamin B12 Lvl (test code = Vitamin 1508 B12 Lvl) [facility]2022-06-28 11:17:00 Test Item Value Reference Range Interpretation Comments Folate Lvl (test code = Folate Lvl) 22.3 [facility]2022-06-28 11:17:00 Test Item Value Reference Range Interpretation Comments Ferritin Lvl (test code = Ferritin Lvl) 1423 48-325 [facility]2022-06-28 11:17:00 Test Item Value Reference Range Interpretation Comments Procalcitonin Lvl (test 0.63 See_Comment [Au tomated message] code = Procalcitonin Lvl) Th e system which generated this result transmitted ref erence range: <=0.10. The reference range was not used to interpr et this result as normal/abnormal . [facility]2022-06-28 11:17:00 Test Item Value Reference Range Interpretation Comments Glucose Lvl (test code = Glucose Lvl) 205 70-99 [place] 412362-06-28 11:17:00 Test Item Value Reference Range Interpretation Comments BUN (test code = BUN) 60 7-22 [facility]2022-06-28 11:17:00 Test Item Value Reference Range Interpretation Comments Creatinine Lvl (test code = Creatinine 8.46 0.50-1.40 Lvl) [facility]2022-06-28 11:17:00 Test Item Value Reference Range Interpretation Comments Sodium Lvl (test code = Sodium Lvl) 131 135-145 [place] 412362-06-28 11:17:00 Test Item Value Reference Range Interpretation Comments Potassium Lvl (test code = Potassium 5.2 3.5-5.1 Lvl) [place] 412362-06-28 11:17:00 Test Item Value Reference Range Interpretation Comments Chloride Lvl (test code = Chloride Lvl) 93 95-109 [place] 412362-06-28 11:17:00 Test Item Value Reference Range Interpretation Comments CO2 (test code = CO2) 29 24-32 [place] 412362-06-28 11:17:00 Test Item Value Reference Range Interpretation Comments Calcium Lvl (test code = Calcium Lvl) 8.7 8.5-10.5 [place] 412362-06-28 11:17:00 Test Item Value Reference Range Interpretation Comments Total Protein (test code = Total 6.0 6.4-8.4 Protein) [place] 412362-06-28 11:17:00 Test Item Value Reference Range Interpretation Comments Albumin Lvl (test code = Albumin Lvl) 2.6 3.5-5.0 [place] 264282-06-28 11:17:00 Test Item Value Reference Range Interpretation Comments D-Dimer (test code = D-Dimer) 5.33 [place] 412362-06-28 11:17:00 Test Item Value Reference Range Interpretation Comments ALT (test code = ALT) 43 See_Comment [Auto mated message] The system which ge nerated this result transmit swathi reference range : <=65. The reference range was not used to interpr et this result as deny l/abnormal. [place] 412362-06-28 11:17:00 Test Item Value Reference Range Interpretation Comments AST (test code = AST) 35 See_Comment [Auto mated message] The system which ge nerated this result transmit swathi reference range : <=37. The reference range was not used to interpr et this result as deny l/abnormal. [place] 412362-06-28 11:17:00 Test Item Value Reference Range Interpretation Comments Alk Phos (test code = Alk Phos) 385 39-136 [place] 412362-06-28 11:17:00 Test Item Value Reference Range Interpretation Comments Bili Total (test code = Bili Total) 1.2 0.2-1.3 [facility]2022-06-28 11:17:00 Test Item Value Reference Range Interpretation Comments AGAP (test code = AGAP) 14.2 10.0-20.0 [facility]2022-06-28 11:17:00 Test Item Value Reference Range Interpretation Comments B/C Ratio (test code = B/C Ratio) 7 1 6-25 [place] 412362-06-28 11:17:00 Test Item Value Reference Range Interpretation Comments Globulin (test code = Globulin) 3.4 2.7-4.2 [facility]2022-06-28 11:17:00 Test Item Value Reference Range Interpretation Comments A/G Ratio (test code = A/G Ratio) 0.8 1 0.7-1.6 [facility]2022-06-28 11:17:00 Test Item Value Reference Range Interpretation Comments eGFR (test code = eGFR) 6 [facility]2022-06-28 11:17:00 Test Item Value Reference Range Interpretation Comments Magnesium Lvl (test code = Magnesium 1.9 1.8-2.4 Lvl) [facility]inydubWPLYXWTSDB8792-91-85 11:17:00 Test Item Value Reference Range Interpretation Comments Hep Bs Ag (test code Negative *NA*(11/25/21 = Hep Bs Ag) 6:17 AM) [facility]2022-06-28 11:17:00 Test Item Value Reference Range Interpretation Comments LDH (test code = LDH) 297 98-192 [facility]2022-06-28 11:17:00 Test Item Value Reference Range Interpretation Comments Procalcitonin Lvl (test 0.63 See_Comment [Au tomated message] code = Procalcitonin Lvl) Th e system which generated this result transmitted ref erence range: <=0.10. The reference range was not used to interpr et this result as normal/abnormal . [facility]xvjfrrFYFQMPOMDU2725-23-05 11:17:00 Test Item Value Reference Range Interpretation Comments D-Dimer (test code = D-Dimer) 5.33 [place] 007042-06-28 11:17:00 Test Item Value Reference Range Interpretation Comments Hep Bs Ag (test code Negative *NA*(11/25/21 = Hep Bs Ag) 6:17 AM) [place] 007042-06-28 11:17:00 Test Item Value Reference Range Interpretation Comments C-REACTIVE PROTEIN (test code = 134.0 C-REACTIVE PROTEIN) [place] 007042-06-28 11:17:00 Test Item Value Reference Range Interpretation Comments Interleukin 6 (test code = Interleukin 25.99 6) [place] 007042-06-28 11:17:00 Test Item Value Reference Range Interpretation Comments C-REACTIVE PROTEIN (test code = 134.0 C-REACTIVE PROTEIN) [place] 007042-06-28 11:17:00 Test Item Value Reference Range Interpretation Comments Interleukin 6 (test code = Interleukin 25.99 6) [facility]2022-06-28 11:17:00 Test Item Value Reference Range Interpretation Comments Vitamin B12 Lvl (test code = Vitamin 1508 B12 Lvl) [place] 509372-06-28 11:17:00 Test Item Value Reference Range Interpretation Comments Folate Lvl (test code = Folate Lvl) 22.3 [facility]2022-06-28 11:17:00 Test Item Value Reference Range Interpretation Comments Ferritin Lvl (test code = Ferritin Lvl) 1423 22-275 [place] 412362-06-28 11:17:00 Test Item Value Reference Range Interpretation Comments Glucose Lvl (test code = Glucose Lvl) 205 70-99 [place] 412362-06-28 11:17:00 Test Item Value Reference Range Interpretation Comments BUN (test code = BUN) 60 7-22 [place] 412362-06-28 11:17:00 Test Item Value Reference Range Interpretation Comments Creatinine Lvl (test code = Creatinine 8.46 0.50-1.40 Lvl) [place] 412362-06-28 11:17:00 Test Item Value Reference Range Interpretation Comments Sodium Lvl (test code = Sodium Lvl) 131 135-145 [place] 412362-06-28 11:17:00 Test Item Value Reference Range Interpretation Comments Potassium Lvl (test code = Potassium 5.2 3.5-5.1 Lvl) [place] 412362-06-28 11:17:00 Test Item Value Reference Range Interpretation Comments Chloride Lvl (test code = Chloride Lvl) 93 95-109 [place] 412362-06-28 11:17:00 Test Item Value Reference Range Interpretation Comments CO2 (test code = CO2) 29 24-32 [facility]2022-06-28 11:17:00 Test Item Value Reference Range Interpretation Comments Calcium Lvl (test code = Calcium Lvl) 8.7 8.5-10.5 [place] 412362-06-28 11:17:00 Test Item Value Reference Range Interpretation Comments Total Protein (test code = Total 6.0 6.4-8.4 Protein) [place] 412362-06-28 11:17:00 Test Item Value Reference Range Interpretation Comments Albumin Lvl (test code = Albumin Lvl) 2.6 3.5-5.0 [facility]2022-06-28 11:17:00 Test Item Value Reference Range Interpretation Comments ALT (test code = ALT) 43 See_Comment [Auto mated message] The system which ge nerated this result transmit swathi reference range : <=65. The reference range was not used to interpr et this result as deny l/abnormal. [facility]2022-06-28 11:17:00 Test Item Value Reference Range Interpretation Comments AST (test code = AST) 35 See_Comment [Auto mated message] The system which ge nerated this result transmit swathi reference range : <=37. The reference range was not used to interpr et this result as deny l/abnormal. [facility]2022-06-28 11:17:00 Test Item Value Reference Range Interpretation Comments Alk Phos (test code = Alk Phos) 385 39-136 [place] 412362-06-28 11:17:00 Test Item Value Reference Range Interpretation Comments Bili Total (test code = Bili Total) 1.2 0.2-1.3 [place] 412362-06-28 11:17:00 Test Item Value Reference Range Interpretation Comments AGAP (test code = AGAP) 14.2 10.0-20.0 [place] 412362-06-28 11:17:00 Test Item Value Reference Range Interpretation Comments B/C Ratio (test code = B/C Ratio) 7 1 6-25 [facility]2022-06-28 11:17:00 Test Item Value Reference Range Interpretation Comments Globulin (test code = Globulin) 3.4 2.7-4.2 [facility]2022-06-28 11:17:00 Test Item Value Reference Range Interpretation Comments A/G Ratio (test code = A/G Ratio) 0.8 1 0.7-1.6 [place] 412362-06-28 11:17:00 Test Item Value Reference Range Interpretation Comments eGFR (test code = eGFR) 6 [facility]2022-06-28 11:17:00 Test Item Value Reference Range Interpretation Comments Magnesium Lvl (test code = Magnesium 1.9 1.8-2.4 Lvl) [facility]2022-06-28 11:17:00 Test Item Value Reference Range Interpretation Comments LDH (test code = LDH) 297 98-192 [facility]2022-06-28 11:17:00 Test Item Value Reference Range Interpretation Comments Procalcitonin Lvl (test 0.63 See_Comment [Au tomated message] code = Procalcitonin Lvl) e system which generated this result transmitted ref erence range: <=0.10. The reference range was not used to interpr et this result as normal/abnormal . [facility]SaueugiQYYBATWIQX4138-36-43 11:17:00 Test Item Value Reference Range Interpretation Comments D-Dimer (test code = D-Dimer) 5.33 [facility]wrqzvtLRGQYSIENN8291-99-20 11:17:00 Test Item Value Reference Range Interpretation Comments Hep Bs Ag (test code Negative *NA*(11/25/21 = Hep Bs Ag) 6:17 AM) [facility]MuymqhyOOWDUBQGQX5867-71-27 11:17:00 Test Item Value Reference Range Interpretation Comments C-REACTIVE PROTEIN (test code = 134.0 C-REACTIVE PROTEIN) [place] 007042-06-28 11:17:00 Test Item Value Reference Range Interpretation Comments Interleukin 6 (test code = Interleukin 25.99 6) [facility]2022-06-28 11:17:00 Test Item Value Reference Range Interpretation Comments Vitamin B12 Lvl (test code = Vitamin 1508 B12 Lvl) [facility]2022-06-28 11:17:00 Test Item Value Reference Range Interpretation Comments Folate Lvl (test code = Folate Lvl) 22.3 [facility]2022-06-28 11:17:00 Test Item Value Reference Range Interpretation Comments Ferritin Lvl (test code = Ferritin Lvl) 1423 55-275 [facility]2022-06-28 11:17:00 Test Item Value Reference Range Interpretation Comments Glucose Lvl (test code = Glucose Lvl) 205 70-99 [facility]2022-06-28 11:17:00 Test Item Value Reference Range Interpretation Comments BUN (test code = BUN) 60 7-22 [place] 412362-06-28 11:17:00 Test Item Value Reference Range Interpretation Comments Creatinine Lvl (test code = Creatinine 8.46 0.50-1.40 Lvl) [facility]2022-06-28 11:17:00 Test Item Value Reference Range Interpretation Comments Sodium Lvl (test code = Sodium Lvl) 131 135-145 [place] 412362-06-28 11:17:00 Test Item Value Reference Range Interpretation Comments Potassium Lvl (test code = Potassium 5.2 3.5-5.1 Lvl) [facility]2022-06-28 11:17:00 Test Item Value Reference Range Interpretation Comments Chloride Lvl (test code = Chloride Lvl) 93 95-109 [facility]2022-06-28 11:17:00 Test Item Value Reference Range Interpretation Comments CO2 (test code = CO2) 29 24-32 [place] 412362-06-28 11:17:00 Test Item Value Reference Range Interpretation Comments Calcium Lvl (test code = Calcium Lvl) 8.7 8.5-10.5 [facility]2022-06-28 11:17:00 Test Item Value Reference Range Interpretation Comments Total Protein (test code = Total 6.0 6.4-8.4 Protein) [place] 412362-06-28 11:17:00 Test Item Value Reference Range Interpretation Comments Albumin Lvl (test code = Albumin Lvl) 2.6 3.5-5.0 [facility]2022-06-28 11:17:00 Test Item Value Reference Range Interpretation Comments ALT (test code = ALT) 43 See_Comment [Auto mated message] The system which ge nerated this result transmit swathi reference range : <=65. The reference range was not used to interpr et this result as deny l/abnormal. [facility] [id number] 11:17:00 Test Item Value Reference Range Interpretation Comments AST (test code = AST) 35 See_Comment [Auto mated message] The system which ge nerated this result transmit swathi reference range : <=37. The reference range was not used to interpr et this result as deny l/abnormal. [facility] [id number] 11:17:00 Test Item Value Reference Range Interpretation Comments Alk Phos (test code = Alk Phos) 385 39-136 [id number] 11:17:00 Test Item Value Reference Range Interpretation Comments Bili Total (test code = Bili Total) 1.2 0.2-1.3 [place] 412362-06-28 11:17:00 Test Item Value Reference Range Interpretation Comments AGAP (test code = AGAP) 14.2 10.0-20.0 [facility] [id number] 11:17:00 Test Item Value Reference Range Interpretation Comments B/C Ratio (test code = B/C Ratio) 7 1 6-25 [facility]2022-06-28 11:17:00 Test Item Value Reference Range Interpretation Comments Globulin (test code = Globulin) 3.4 2.7-4.2 [facility]2022-06-28 11:17:00 Test Item Value Reference Range Interpretation Comments A/G Ratio (test code = A/G Ratio) 0.8 1 0.7-1.6 [facility]2022-06-28 11:17:00 Test Item Value Reference Range Interpretation Comments eGFR (test code = eGFR) 6 [place] 412362-06-28 11:17:00 Test Item Value Reference Range Interpretation Comments Magnesium Lvl (test code = Magnesium 1.9 1.8-2.4 Lvl) [facility]2022-06-28 11:17:00 Test Item Value Reference Range Interpretation Comments LDH (test code = LDH) 297 98-192 [facility]2022-06-28 11:17:00 Test Item Value Reference Range Interpretation Comments Procalcitonin Lvl (test 0.63 See_Comment [Au tomated message] code = Procalcitonin Lvl) Th e system which generated this result transmitted ref erence range: <=0.10. The reference range was not used to interpr et this result as normal/abnormal . [facility] 11:17:00 Test Item Value Reference Range Interpretation Comments D-Dimer (test code = D-Dimer) 5.33 [place] 007042-06-28 11:17:00 Test Item Value Reference Range Interpretation Comments Hep Bs Ag (test code Negative *NA*(11/25/21 = Hep Bs Ag) 6:17 AM) [place] 007042-06-28 11:17:00 Test Item Value Reference Range Interpretation Comments C-REACTIVE PROTEIN (test code = 134.0 C-REACTIVE PROTEIN) [place] 007042-06-28 11:17:00 Test Item Value Reference Range Interpretation Comments Interleukin 6 (test code = Interleukin 25.99 6) [facility]2022-06-28 11:17:00 Test Item Value Reference Range Interpretation Comments Vitamin B12 Lvl (test code = Vitamin 1508 B12 Lvl) [facility]2022-06-28 11:17:00 Test Item Value Reference Range Interpretation Comments Folate Lvl (test code = Folate Lvl) 22.3 [facility]2022-06-28 11:17:00 Test Item Value Reference Range Interpretation Comments Ferritin Lvl (test code = Ferritin Lvl) 1423 22-275 [facility]2022-06-28 11:17:00 Test Item Value Reference Range Interpretation Comments Glucose Lvl (test code = Glucose Lvl) 205 70-99 [facility]2022-06-28 11:17:00 Test Item Value Reference Range Interpretation Comments BUN (test code = BUN) 60 7-22 [facility]2022-06-28 11:17:00 Test Item Value Reference Range Interpretation Comments Creatinine Lvl (test code = Creatinine 8.46 0.50-1.40 Lvl) [facility]2022-06-28 11:17:00 Test Item Value Reference Range Interpretation Comments Sodium Lvl (test code = Sodium Lvl) 131 135-145 [facility]2022-06-28 11:17:00 Test Item Value Reference Range Interpretation Comments Potassium Lvl (test code = Potassium 5.2 3.5-5.1 Lvl) [place] 412362-06-28 11:17:00 Test Item Value Reference Range Interpretation Comments Chloride Lvl (test code = Chloride Lvl) 93 95-109 [place] 412362-06-28 11:17:00 Test Item Value Reference Range Interpretation Comments CO2 (test code = CO2) 29 24-32 [place] 412362-06-28 11:17:00 Test Item Value Reference Range Interpretation Comments Calcium Lvl (test code = Calcium Lvl) 8.7 8.5-10.5 [place] 412362-06-28 11:17:00 Test Item Value Reference Range Interpretation Comments Total Protein (test code = Total 6.0 6.4-8.4 Protein) [place] 412362-06-28 11:17:00 Test Item Value Reference Range Interpretation Comments Albumin Lvl (test code = Albumin Lvl) 2.6 3.5-5.0 [place] 412362-06-28 11:17:00 Test Item Value Reference Range Interpretation Comments ALT (test code = ALT) 43 See_Comment [Auto mated message] The system which ge nerated this result transmit swathi reference range : <=65. The reference range was not used to interpr et this result as deny l/abnormal. [place] 412362-06-28 11:17:00 Test Item Value Reference Range Interpretation Comments AST (test code = AST) 35 See_Comment [Auto mated message] The system which ge nerated this result transmit swathi reference range : <=37. The reference range was not used to interpr et this result as deny l/abnormal. [place] 412362-06-28 11:17:00 Test Item Value Reference Range Interpretation Comments Alk Phos (test code = Alk Phos) 385 39-136 [place] 412362-06-28 11:17:00 Test Item Value Reference Range Interpretation Comments Bili Total (test code = Bili Total) 1.2 0.2-1.3 [place] 412362-06-28 11:17:00 Test Item Value Reference Range Interpretation Comments AGAP (test code = AGAP) 14.2 10.0-20.0 [facility]2022-06-28 11:17:00 Test Item Value Reference Range Interpretation Comments B/C Ratio (test code = B/C Ratio) 7 1 6-25 [facility]2022-06-28 11:17:00 Test Item Value Reference Range Interpretation Comments Globulin (test code = Globulin) 3.4 2.7-4.2 [facility]2022-06-28 11:17:00 Test Item Value Reference Range Interpretation Comments A/G Ratio (test code = A/G Ratio) 0.8 1 0.7-1.6 [facility]2022-06-28 11:17:00 Test Item Value Reference Range Interpretation Comments eGFR (test code = eGFR) 6 [facility]2022-06-28 11:17:00 Test Item Value Reference Range Interpretation Comments Magnesium Lvl (test code = Magnesium 1.9 1.8-2.4 Lvl) [facility]2022-06-28 11:17:00 Test Item Value Reference Range Interpretation Comments LDH (test code = LDH) 297 98-192 [facility]2022-06-28 11:17:00 Test Item Value Reference Range Interpretation Comments Procalcitonin Lvl (test 0.63 See_Comment [Au tomated message] code = Procalcitonin Lvl) Th e system which generated this result transmitted ref erence range: <=0.10. The reference range was not used to interpr et this result as normal/abnormal . [facility]evilleXlnvcbaJJDZGBUIGR8073-82-86 11:17:00 Test Item Value Reference Range Interpretation Comments D-Dimer (test code = D-Dimer) 5.33 [facility] BeevilleYljwdfrJDFTKLVNFM4130-30-34 11:17:00 Test Item Value Reference Range Interpretation Comments Hep Bs Ag (test code Negative *NA*(11/25/21 = Hep Bs Ag) 6:17 AM) [facility]evilleSavysjyVYOWIXUVQQ5610-75-93 11:17:00 Test Item Value Reference Range Interpretation Comments C-REACTIVE PROTEIN (test code = 134.0 C-REACTIVE PROTEIN) [facility] BeevilleYdpchiiUTWEVSIFDQ6465-72-21 11:17:00 Test Item Value Reference Range Interpretation Comments Interleukin 6 (test code = Interleukin 25.99 6) [facility] [id number] 05:52:00 Test Item Value Reference Range Interpretation Comments RBC product (test code Product available = RBC product) 4(11/25/21 12:52 AM) [facility] [id number] 05:52:00 Test Item Value Reference Range Interpretation Comments RBC product (test code Product available = RBC product) 4(11/25/21 12:52 AM) [facility] [id number] 05:52:00 Test Item Value Reference Range Interpretation Comments RBC product (test code Product available = RBC product) 4(11/25/21 12:52 AM) [facility] [id number] 05:52:00 Test Item Value Reference Range Interpretation Comments RBC product (test code Product available = RBC product) 4(11/25/21 12:52 AM) [facility] [id number] 05:52:00 Test Item Value Reference Range Interpretation Comments RBC product (test code Product available = RBC product) 4(11/25/21 12:52 AM) [facility] [id number] 05:52:00 Test Item Value Reference Range Interpretation Comments RBC product (test code Product available = RBC product) 4(11/25/21 12:52 AM) [facility] [id number] 05:52:00 Test Item Value Reference Range Interpretation Comments RBC product (test code Product available = RBC product) 4(11/25/21 12:52 AM) [facility] [id number] 05:52:00 Test Item Value Reference Range Interpretation Comments RBC product (test code Product available = RBC product) 4(11/25/21 12:52 AM) [facility] [id number] 05:52:00 Test Item Value Reference Range Interpretation Comments RBC product (test code Product available = RBC product) 4(11/25/21 12:52 AM) [facility] [id number] 05:52:00 Test Item Value Reference Range Interpretation Comments RBC product (test code Product available = RBC product) 4(11/25/21 12:52 AM) [facility] [id number] 05:52:00 Test Item Value Reference Range Interpretation Comments RBC product (test code Product available = RBC product) 4(11/25/21 12:52 AM) [facility]HXV9368-55-51 05:43:00 Test Item Value Reference Range Interpretation Comments Coronavirus (COVID-19) Detected MANUEL (test code = 8*ABN*(11/25/21 12:43 Coronavirus (COVID-19) AM) MANUEL) [facility]AfkpwxlSBERWCDDIN9025-50-77 05:43:00 Test Item Value Reference Range Interpretation Comments Coronavirus (COVID-19) Detected MANUEL (test code = 8*ABN*(11/25/21 12:43 Coronavirus (COVID-19) AM) MANUEL) [facility] TexasOeedlqaBRSTHULMUJ5367-34-61 05:43:00 Test Item Value Reference Range Interpretation Comments Coronavirus (COVID-19) Detected MANUEL (test code = 8*ABN*(11/25/21 12:43 Coronavirus (COVID-19) AM) MANUEL) [facility] TexasJwyhvmzRBHXZPWHIK2573-98-63 05:43:00 Test Item Value Reference Range Interpretation Comments Coronavirus (COVID-19) Detected MANUEL (test code = 8*ABN*(11/25/21 12:43 Coronavirus (COVID-19) AM) MANUEL) [facility] TexasLavwidbIDCTRBPEEU6331-86-10 05:43:00 Test Item Value Reference Range Interpretation Comments Coronavirus (COVID-19) Detected MANUEL (test code = 8*ABN*(11/25/21 12:43 Coronavirus (COVID-19) AM) MANUEL) [facility] TexasRxiwlxpEQUSYILIPV0853-37-25 05:43:00 Test Item Value Reference Range Interpretation Comments Coronavirus (COVID-19) Detected MANUEL (test code = 8*ABN*(11/25/21 12:43 Coronavirus (COVID-19) AM) MANUEL) [facility] TexasZkpszhjUJBOQXIYYW2673-67-11 05:43:00 Test Item Value Reference Range Interpretation Comments Coronavirus (COVID-19) Detected MANUEL (test code = 8*ABN*(11/25/21 12:43 Coronavirus (COVID-19) AM) MANUEL) [facility] TexasYuipybqVAOWCYFTKR8866-67-82 05:43:00 Test Item Value Reference Range Interpretation Comments Coronavirus (COVID-19) Detected MANUEL (test code = 8*ABN*(11/25/21 12:43 Coronavirus (COVID-19) AM) MANUEL) [facility] TexasCdnmmtzOFWNCILDJY4550-59-16 05:43:00 Test Item Value Reference Range Interpretation Comments Coronavirus (COVID-19) Detected MANUEL (test code = 8*ABN*(11/25/21 12:43 Coronavirus (COVID-19) AM) MANUEL) [facility] TexasNlbyssvASUSDBWQTC2985-98-83 05:43:00 Test Item Value Reference Range Interpretation Comments Coronavirus (COVID-19) Detected MANUEL (test code = 8*ABN*(11/25/21 12:43 Coronavirus (COVID-19) AM) MANUEL) [facility] TexasMxedrlvXSMRLAMDYM5966-64-25 05:43:00 Test Item Value Reference Range Interpretation Comments Coronavirus (COVID-19) Detected MANUEL (test code = 8*ABN*(11/25/21 12:43 Coronavirus (COVID-19) AM) MANUEL) [facility] AND [id number] 05:23:00 Test Item Value Reference Range Interpretation Comments Occult Bld Stl (test Negative (11/25/21 12:23 code = Occult Bld Stl) AM) [facility] AND [id number] 05:23:00 Test Item Value Reference Range Interpretation Comments Occult Bld Stl (test Negative (11/25/21 12:23 code = Occult Bld Stl) AM) [facility] AND [id number] 05:23:00 Test Item Value Reference Range Interpretation Comments Occult Bld Stl (test Negative (11/25/21 12:23 code = Occult Bld Stl) AM) [facility] AND [id number] 05:23:00 Test Item Value Reference Range Interpretation Comments Occult Bld Stl (test Negative (11/25/21 12:23 code = Occult Bld Stl) AM) [facility] AND [id number] 05:23:00 Test Item Value Reference Range Interpretation Comments Occult Bld Stl (test Negative (11/25/21 12:23 code = Occult Bld Stl) AM) [facility] AND [id number] 05:23:00 Test Item Value Reference Range Interpretation Comments Occult Bld Stl (test Negative (11/25/21 12:23 code = Occult Bld Stl) AM) [facility] AND [id number] 05:23:00 Test Item Value Reference Range Interpretation Comments Occult Bld Stl (test Negative (11/25/21 12:23 code = Occult Bld Stl) AM) [facility] AND [id number] 05:23:00 Test Item Value Reference Range Interpretation Comments Occult Bld Stl (test Negative (11/25/21 12:23 code = Occult Bld Stl) AM) [facility] AND [id number] 05:23:00 Test Item Value Reference Range Interpretation Comments Occult Bld Stl (test Negative (11/25/21 12:23 code = Occult Bld Stl) AM) [facility] AND [id number] 05:23:00 Test Item Value Reference Range Interpretation Comments Occult Bld Stl (test Negative (11/25/21 12:23 code = Occult Bld Stl) AM) [facility] AND [id number] 05:23:00 Test Item Value Reference Range Interpretation Comments Occult Bld Stl (test Negative (11/25/21 12:23 code = Occult Bld Stl) AM) [facility] [employer] [facility] [id number] 04:12:00 Test Item Value Reference Range Interpretation Comments ABO/Rh (test code = ABO/Rh) AB POS [facility] [employer] [facility] [id number] 04:12:00 Test Item Value Reference Range Interpretation Comments Antibody Scrn (test Negative (11/24/21 code = Antibody Scrn) 11:12 PM) [facility] [id number] 04:12:00 Test Item Value Reference Range Interpretation Comments Total CK (test code = Total CK) 86 12-191 [facility] [id number] 04:12:00 Test Item Value Reference Range Interpretation Comments HS Troponin I (test code = HS Troponin 316 I) [facility] [employer] [id number] 04:12:00 Test Item Value Reference Range Interpretation Comments Glucose Lvl (test code = Glucose Lvl) 261 70-99 [facility] [employer] [id number] 04:12:00 Test Item Value Reference Range Interpretation Comments BUN (test code = BUN) 60 7-22 [place] 412362-06-28 04:12:00 Test Item Value Reference Range Interpretation Comments Creatinine Lvl (test code = Creatinine 8.49 0.50-1.40 Lvl) [place] 412362-06-28 04:12:00 Test Item Value Reference Range Interpretation Comments Sodium Lvl (test code = Sodium Lvl) 133 135-145 [place] 412362-06-28 04:12:00 Test Item Value Reference Range Interpretation Comments Potassium Lvl (test code = Potassium 4.9 3.5-5.1 Lvl) [place] 412362-06-28 04:12:00 Test Item Value Reference Range Interpretation Comments Chloride Lvl (test code = Chloride Lvl) 93 95-109 [place] 412362-06-28 04:12:00 Test Item Value Reference Range Interpretation Comments CO2 (test code = CO2) 31 24-32 [place] 412362-06-28 04:12:00 Test Item Value Reference Range Interpretation Comments Calcium Lvl (test code = Calcium Lvl) 9.1 8.5-10.5 [place] 412362-06-28 04:12:00 Test Item Value Reference Range Interpretation Comments Total Protein (test code = Total 6.8 6.4-8.4 Protein) [place] 412362-06-28 04:12:00 Test Item Value Reference Range Interpretation Comments Albumin Lvl (test code = Albumin Lvl) 2.5 3.5-5.0 [place] 412362-06-28 04:12:00 Test Item Value Reference Range Interpretation Comments ALT (test code = ALT) 51 See_Comment [Auto mated message] The system which [employer] nerated this result transmit swathi reference range : <=65. The reference range was not used to interpr et this result as deny l/abnormal. [place] 412362-06-28 04:12:00 Test Item Value Reference Range Interpretation Comments AST (test code = AST) 36 See_Comment [Auto mated message] The system which [employer] nerated this result transmit swathi reference range : <=37. The reference range was not used to interpr et this result as deny l/abnormal. [place] 412362-06-28 04:12:00 Test Item Value Reference Range Interpretation Comments Alk Phos (test code = Alk Phos) 383 39-136 [place] 412362-06-28 04:12:00 Test Item Value Reference Range Interpretation Comments Bili Total (test code = Bili Total) 1.1 0.2-1.3 [place] 412362-06-28 04:12:00 Test Item Value Reference Range Interpretation Comments AGAP (test code = AGAP) 13.9 10.0-20.0 [place] 412362-06-28 04:12:00 Test Item Value Reference Range Interpretation Comments B/C Ratio (test code = B/C Ratio) 7 1 6-25 [place] 412362-06-28 04:12:00 Test Item Value Reference Range Interpretation Comments Globulin (test code = Globulin) 4.3 2.7-4.2 [place] 412362-06-28 04:12:00 Test Item Value Reference Range Interpretation Comments A/G Ratio (test code = A/G Ratio) 0.6 1 0.7-1.6 [place] 412362-06-28 04:12:00 Test Item Value Reference Range Interpretation Comments eGFR (test code = eGFR) 5 [place] 412362-06-28 04:12:00 Test Item Value Reference Range Interpretation Comments Procalcitonin Lvl (test 0.69 See_Comment [Au tomated message] code = Procalcitonin Lvl) Th e system which generated this result transmitted ref erence range: <=0.10. The reference range was not used to interpr et this result as normal/abnormal . [place] 264282-06-28 04:12:00 Test Item Value Reference Range Interpretation Comments WBC (test code = WBC) 4.1 3.7-10.4 [place] [address]-06-28 04:12:00 Test Item Value Reference Range Interpretation Comments RBC (test code = RBC) 1.78 4.70-6.10 [place] 264282-06-28 04:12:00 Test Item Value Reference Range Interpretation Comments Hgb (test code = Hgb) 6.5 14.0-18.0 [place] 264282-06-28 04:12:00 Test Item Value Reference Range Interpretation Comments Hct (test code = Hct) 19.5 42.0-54.0 [facility]txsdyxFMYWGEQXNS4523-73-82 04:12:00 Test Item Value Reference Range Interpretation Comments MCV (test code = MCV) 110.0 80.0-94.0 [facility] HospitalAbntwrqMDURSRVWSZ9630-75-21 04:12:00 Test Item Value Reference Range Interpretation Comments MCH (test code = MCH) 36.5 pg 27.0-31.0 [facility] HospitalXlmpebvAKJHTLIWTI7946-58-73 04:12:00 Test Item Value Reference Range Interpretation Comments MCHC (test code = MCHC) 33.2 32.0-36.0 [facility] HospitalIrgxkqyBDJWPTQYGY8957-77-11 04:12:00 Test Item Value Reference Range Interpretation Comments RDW (test code = RDW) 19.0 11.5-14.5 [facility] HospitalZwkutmjFVXVPUFGIZ3783-72-73 04:12:00 Test Item Value Reference Range Interpretation Comments Platelet (test code = Platelet) 180 133-450 [facility] HospitalKdkwkmkOXOQSOPZSF3289-37-41 04:12:00 Test Item Value Reference Range Interpretation Comments MPV (test code = MPV) 8.3 7.4-10.4 [facility] HospitalSarldlaSPEOPFBROK0206-66-99 04:12:00 Test Item Value Reference Range Interpretation Comments PTT (test code = PTT) 45.4 s 22.9-35.8 [facility] HospitalLrtebxrHVEEPBAYUC0436-50-91 04:12:00 Test Item Value Reference Range Interpretation Comments PT (test code = PT) 19.1 s 12.0-14.7 [facility] HospitalXzguhtxYPUSMSNCPF0607-17-20 04:12:00 Test Item Value Reference Range Interpretation Comments INR (test code = INR) 1.62 1 0.85-1.17 [facility] HospitalOihunsrFVKYXFAVUG8937-46-96 04:12:00 Test Item Value Reference Range Interpretation Comments RBC Morph (test code = See Note (11/24/21 RBC Morph) 11:12 PM) [facility] HospitalDqodxcrGEMZSUXZVA2062-38-81 04:12:00 Test Item Value Reference Range Interpretation Comments Plt Morph (test code = Normal (11/24/21 11:12 Plt Morph) PM) [facility] HospitalUutiknpVRTAELJDQF3790-65-26 04:12:00 Test Item Value Reference Range Interpretation Comments Segs (test code = Segs) 72.2 45.0-75.0 [place] 264282-06-28 04:12:00 Test Item Value Reference Range Interpretation Comments Lymphocytes (test code = Lymphocytes) 16.2 20.0-40.0 [facility] HospitalSmrlzcfKXVDKBPYGA1454-60-52 04:12:00 Test Item Value Reference Range Interpretation Comments Monocytes (test code = Monocytes) 8.0 2.0-12.0 [facility] HospitalFmbbcgeBDKVJDOBJK2995-79-38 04:12:00 Test Item Value Reference Range Interpretation Comments Eosinophils (test code = 2.7 See_Comment [A utomated message] The Eosinophils) system which ge nerated this result tra nsmitted reference range : <=4.0. The reference r samantha was not used to int erpret this result as normal/abnormal . [facility] HospitalKuoeszmAYDMEYFYPF7294-80-53 04:12:00 Test Item Value Reference Range Interpretation Comments Basophils (test code = 0.9 See_Comment [Aut omated message] The Basophils) system which ge nerated this result tra nsmitted reference range : <=1.0. The reference r samantha was not used to int erpret this result as normal/abnormal . [facility] HospitalGfdnfptAJOLDZRZCN5875-11-06 04:12:00 Test Item Value Reference Range Interpretation Comments Neutrophils # (test code = Neutrophils 2.9 1.5-8.1 #) [facility] HospitalXbwmgufBEMYRQCQEP7964-82-76 04:12:00 Test Item Value Reference Range Interpretation Comments Lymphocytes # (test code = Lymphocytes 0.7 1.0-5.5 #) [facility] HospitalEnctinsQYHYPZPWUG0120-38-97 04:12:00 Test Item Value Reference Range Interpretation Comments Monocytes # (test code 0.3 See_Comment [Aut omated message] The = Monocytes #) system which generated this result tra nsmitted reference range : <=0.8. The reference r samantha was not used to int erpret this result as normal/abnormal . [facility] HospitalSxepjbsIMUCTJQXRZ8578-02-09 04:12:00 Test Item Value Reference Range Interpretation Comments Eosinophils # (test code 0.1 See_Comment [A utomated message] The = Eosinophils #) system whic h generated this result tra nsmitted reference range : <=0.5. The reference r samantha was not used to int erpret this result as normal/abnormal . [place] [address]-06-28 04:12:00 Test Item Value Reference Range Interpretation Comments Anisocyte (test code = 1+ *ABN*(11/24/21 Anisocyte) 11:12 PM) [facility] ZiybaruWRRZJCTVFB3550-33-88 04:12:00 Test Item Value Reference Range Interpretation Comments Macrocyte (test code = 1+ *ABN*(11/24/21 Macrocyte) 11:12 PM) [facility]TpxfmuqHJYNIQWWDI4466-22-36 04:12:00 Test Item Value Reference Range Interpretation Comments Microcyte (test code = 1+ *ABN*(11/24/21 Microcyte) 11:12 PM) [facility] [employer] [id number] 04:12:00 Test Item Value Reference Range Interpretation Comments ABO/Rh (test code = ABO/Rh) AB POS [facility] [employer] [id number] 04:12:00 Test Item Value Reference Range Interpretation Comments Antibody Scrn (test Negative (11/24/21 code = Antibody Scrn) 11:12 PM) [facility] [employer] [id number] 04:12:00 Test Item Value Reference Range Interpretation Comments Total CK (test code = Total CK) 86 12-191 [facility] [employer] [id number] 04:12:00 Test Item Value Reference Range Interpretation Comments HS Troponin I (test code = HS Troponin 316 I) [facility] [employer]2022-06-28 04:12:00 Test Item Value Reference Range Interpretation Comments Glucose Lvl (test code = Glucose Lvl) 261 70-99 [facility] [employer]2022-06-28 04:12:00 Test Item Value Reference Range Interpretation Comments BUN (test code = BUN) 60 7-22 [facility] [employer]2022-06-28 04:12:00 Test Item Value Reference Range Interpretation Comments Creatinine Lvl (test code = Creatinine 8.49 0.50-1.40 Lvl) [employer]2022-06-28 04:12:00 Test Item Value Reference Range Interpretation Comments Sodium Lvl (test code = Sodium Lvl) 133 135-145 [facility] [employer]2022-06-28 04:12:00 Test Item Value Reference Range Interpretation Comments Potassium Lvl (test code = Potassium 4.9 3.5-5.1 Lvl) [employer]2022-06-28 04:12:00 Test Item Value Reference Range Interpretation Comments Chloride Lvl (test code = Chloride Lvl) 93 95-109 [place] 412362-06-28 04:12:00 Test Item Value Reference Range Interpretation Comments CO2 (test code = CO2) 31 24-32 [place] 412362-06-28 04:12:00 Test Item Value Reference Range Interpretation Comments Calcium Lvl (test code = Calcium Lvl) 9.1 8.5-10.5 [facility] [place] [id number] 04:12:00 Test Item Value Reference Range Interpretation Comments Total Protein (test code = Total 6.8 6.4-8.4 Protein) [place] 412362-06-28 04:12:00 Test Item Value Reference Range Interpretation Comments Albumin Lvl (test code = Albumin Lvl) 2.5 3.5-5.0 [place] 412362-06-28 04:12:00 Test Item Value Reference Range Interpretation Comments ALT (test code = ALT) 51 See_Comment [Auto mated message] The system which ge nerated this result transmit swathi reference range : <=65. The reference range was not used to interpr et this result as deny l/abnormal. [facility] [id number] 04:12:00 Test Item Value Reference Range Interpretation Comments AST (test code = AST) 36 See_Comment [Auto mated message] The system which ge nerated this result transmit swathi reference range : <=37. The reference range was not used to interpr et this result as deny l/abnormal. [facility] [id number] 04:12:00 Test Item Value Reference Range Interpretation Comments Alk Phos (test code = Alk Phos) 383 39-136 [place] 412362-06-28 04:12:00 Test Item Value Reference Range Interpretation Comments Bili Total (test code = Bili Total) 1.1 0.2-1.3 [place] 412362-06-28 04:12:00 Test Item Value Reference Range Interpretation Comments AGAP (test code = AGAP) 13.9 10.0-20.0 [facility] [id number] 04:12:00 Test Item Value Reference Range Interpretation Comments B/C Ratio (test code = B/C Ratio) 7 1 6-25 [place] 412362-06-28 04:12:00 Test Item Value Reference Range Interpretation Comments Globulin (test code = Globulin) 4.3 2.7-4.2 [place] 412362-06-28 04:12:00 Test Item Value Reference Range Interpretation Comments A/G Ratio (test code = A/G Ratio) 0.6 1 0.7-1.6 [place] 412362-06-28 04:12:00 Test Item Value Reference Range Interpretation Comments eGFR (test code = eGFR) 5 [place] 412362-06-28 04:12:00 Test Item Value Reference Range Interpretation Comments Procalcitonin Lvl (test 0.69 See_Comment [Au tomated message] code = Procalcitonin Lvl) Th e system which generated this result transmitted ref erence range: <=0.10. The reference range was not used to interpr et this result as normal/abnormal . [place] 264282-06-28 04:12:00 Test Item Value Reference Range Interpretation Comments WBC (test code = WBC) 4.1 3.7-10.4 [place] [address]-06-28 04:12:00 Test Item Value Reference Range Interpretation Comments RBC (test code = RBC) 1.78 4.70-6.10 [place] [address]-06-28 04:12:00 Test Item Value Reference Range Interpretation Comments Hgb (test code = Hgb) 6.5 14.0-18.0 [place] [address]-06-28 04:12:00 Test Item Value Reference Range Interpretation Comments Hct (test code = Hct) 19.5 42.0-54.0 [place] [address]-06-28 04:12:00 Test Item Value Reference Range Interpretation Comments MCV (test code = MCV) 110.0 80.0-94.0 [place] [address]-06-28 04:12:00 Test Item Value Reference Range Interpretation Comments MCH (test code = MCH) 36.5 pg 27.0-31.0 [place] 264282-06-28 04:12:00 Test Item Value Reference Range Interpretation Comments MCHC (test code = MCHC) 33.2 32.0-36.0 [facility] HospitalBzhnkeeOOXWUJMGWV0199-19-07 04:12:00 Test Item Value Reference Range Interpretation Comments RDW (test code = RDW) 19.0 11.5-14.5 [facility] HospitalGgsmpnqRGGVQNSNWB0646-78-18 04:12:00 Test Item Value Reference Range Interpretation Comments Platelet (test code = Platelet) 180 133-450 [facility] HospitalEjpcjnlVKQGZVRPSI3185-21-63 04:12:00 Test Item Value Reference Range Interpretation Comments MPV (test code = MPV) 8.3 7.4-10.4 [facility] HospitalKideingPYICVTUIKY9968-44-40 04:12:00 Test Item Value Reference Range Interpretation Comments PTT (test code = PTT) 45.4 s 22.9-35.8 [facility] HospitalQaougfsYBJFGJGJVN9781-90-15 04:12:00 Test Item Value Reference Range Interpretation Comments PT (test code = PT) 19.1 s 12.0-14.7 [facility] HospitalIqmrenmJMNPHFPYYI8754-71-67 04:12:00 Test Item Value Reference Range Interpretation Comments INR (test code = INR) 1.62 1 0.85-1.17 [facility] HospitalWlbzjclRFKVFDOQGL7205-46-45 04:12:00 Test Item Value Reference Range Interpretation Comments RBC Morph (test code = See Note (11/24/21 RBC Morph) 11:12 PM) [facility] HospitalDiguizbWWOGTOGDCF8048-16-41 04:12:00 Test Item Value Reference Range Interpretation Comments Plt Morph (test code = Normal (11/24/21 11:12 Plt Morph) PM) [facility] HospitalTrjlgkdMURGLMITPR8775-19-56 04:12:00 Test Item Value Reference Range Interpretation Comments Segs (test code = Segs) 72.2 45.0-75.0 [facility] HospitalQsivutrRTBMNHQSOC3017-04-18 04:12:00 Test Item Value Reference Range Interpretation Comments Lymphocytes (test code = Lymphocytes) 16.2 20.0-40.0 [facility] HospitalDvdntvgUYOFRDKLNU7949-23-24 04:12:00 Test Item Value Reference Range Interpretation Comments Monocytes (test code = Monocytes) 8.0 2.0-12.0 [place] 264282-06-28 04:12:00 Test Item Value Reference Range Interpretation Comments Eosinophils (test code = 2.7 See_Comment [A utomated message] The Eosinophils) system which ge nerated this result tra nsmitted reference range : <=4.0. The reference r samantha was not used to int erpret this result as normal/abnormal . [facility] HospitalTgcblnhVYWYAPZDZJ6445-80-50 04:12:00 Test Item Value Reference Range Interpretation Comments Basophils (test code = 0.9 See_Comment [Aut omated message] The Basophils) system which ge nerated this result tra nsmitted reference range : <=1.0. The reference r samantha was not used to int erpret this result as normal/abnormal . [facility] HospitalIhapijsQUXBYZTUPL9292-88-14 04:12:00 Test Item Value Reference Range Interpretation Comments Neutrophils # (test code = Neutrophils 2.9 1.5-8.1 #) [place] 264282-06-28 04:12:00 Test Item Value Reference Range Interpretation Comments Lymphocytes # (test code = Lymphocytes 0.7 1.0-5.5 #) [place] 264282-06-28 04:12:00 Test Item Value Reference Range Interpretation Comments Monocytes # (test code 0.3 See_Comment [Aut omated message] The = Monocytes #) system which generated this result tra nsmitted reference range : <=0.8. The reference r samantha was not used to int erpret this result as normal/abnormal . [facility] HospitalAjzqrlgAIVZHDRWWE1074-72-60 04:12:00 Test Item Value Reference Range Interpretation Comments Eosinophils # (test code 0.1 See_Comment [A utomated message] The = Eosinophils #) system whic h generated this result tra nsmitted reference range : <=0.5. The reference r samantha was not used to int erpret this result as normal/abnormal . [facility] HospitalOurixuvFDTLDTZMEF6598-70-66 04:12:00 Test Item Value Reference Range Interpretation Comments Anisocyte (test code = 1+ *ABN*(11/24/21 Anisocyte) 11:12 PM) [facility] HospitalUhlszhxGZMKOKWXNG9718-01-84 04:12:00 Test Item Value Reference Range Interpretation Comments Macrocyte (test code = 1+ *ABN*(11/24/21 Macrocyte) 11:12 PM) [place] 264282-06-28 04:12:00 Test Item Value Reference Range Interpretation Comments Microcyte (test code = 1+ *ABN*(11/24/21 Microcyte) 11:12 PM) [facility] [employer] [id number] 04:12:00 Test Item Value Reference Range Interpretation Comments ABO/Rh (test code = ABO/Rh) AB POS [facility] [employer] [id number] 04:12:00 Test Item Value Reference Range Interpretation Comments Antibody Scrn (test Negative (11/24/21 code = Antibody Scrn) 11:12 PM) [facility] [employer] [id number] 04:12:00 Test Item Value Reference Range Interpretation Comments Total CK (test code = Total CK) 86 12-191 [facility] [employer] [id number] 04:12:00 Test Item Value Reference Range Interpretation Comments HS Troponin I (test code = HS Troponin 316 I) [facility] [employer]2022-06-28 04:12:00 Test Item Value Reference Range Interpretation Comments Glucose Lvl (test code = Glucose Lvl) 261 70-99 [facility]2022-06-28 04:12:00 Test Item Value Reference Range Interpretation Comments BUN (test code = BUN) 60 7-22 [facility] [employer]2022-06-28 04:12:00 Test Item Value Reference Range Interpretation Comments Creatinine Lvl (test code = Creatinine 8.49 0.50-1.40 Lvl) [facility]2022-06-28 04:12:00 Test Item Value Reference Range Interpretation Comments Sodium Lvl (test code = Sodium Lvl) 133 135-145 [facility] [employer]2022-06-28 04:12:00 Test Item Value Reference Range Interpretation Comments Potassium Lvl (test code = Potassium 4.9 3.5-5.1 Lvl) [facility]2022-06-28 04:12:00 Test Item Value Reference Range Interpretation Comments Chloride Lvl (test code = Chloride Lvl) 93 95-109 [employer]2022-06-28 04:12:00 Test Item Value Reference Range Interpretation Comments CO2 (test code = CO2) 31 24-32 [facility] [employer]2022-06-28 04:12:00 Test Item Value Reference Range Interpretation Comments Calcium Lvl (test code = Calcium Lvl) 9.1 8.5-10.5 [facility] [employer]2022-06-28 04:12:00 Test Item Value Reference Range Interpretation Comments Total Protein (test code = Total 6.8 6.4-8.4 Protein) [facility] [id number] 04:12:00 Test Item Value Reference Range Interpretation Comments Albumin Lvl (test code = Albumin Lvl) 2.5 3.5-5.0 [facility] [id number] 04:12:00 Test Item Value Reference Range Interpretation Comments ALT (test code = ALT) 51 See_Comment [Auto mated message] The system which ge nerated this result transmit swathi reference range : <=65. The reference range was not used to interpr et this result as deny l/abnormal. [facility] [employer] [id number] 04:12:00 Test Item Value Reference Range Interpretation Comments AST (test code = AST) 36 See_Comment [Auto mated message] The system which ge nerated this result transmit swathi reference range : <=37. The reference range was not used to interpr et this result as deny l/abnormal. [facility] [employer] [id number] 04:12:00 Test Item Value Reference Range Interpretation Comments Alk Phos (test code = Alk Phos) 383 39-136 [facility] [employer] [id number] 04:12:00 Test Item Value Reference Range Interpretation Comments Bili Total (test code = Bili Total) 1.1 0.2-1.3 [facility] [employer] [id number] 04:12:00 Test Item Value Reference Range Interpretation Comments AGAP (test code = AGAP) 13.9 10.0-20.0 [facility] [employer] [id number] 04:12:00 Test Item Value Reference Range Interpretation Comments B/C Ratio (test code = B/C Ratio) 7 1 6-25 [facility] [id number] 04:12:00 Test Item Value Reference Range Interpretation Comments Globulin (test code = Globulin) 4.3 2.7-4.2 [facility] [employer] [id number] 04:12:00 Test Item Value Reference Range Interpretation Comments A/G Ratio (test code = A/G Ratio) 0.6 1 0.7-1.6 [facility] [employer] [id number] 04:12:00 Test Item Value Reference Range Interpretation Comments eGFR (test code = eGFR) 5 [facility]2022-06-28 04:12:00 Test Item Value Reference Range Interpretation Comments Procalcitonin Lvl (test 0.69 See_Comment [Au tomated message] code = Procalcitonin Lvl) Th e system which generated this result transmitted ref erence range: <=0.10. The reference range was not used to interpr et this result as normal/abnormal . [facility] HospitalQrfayydTICQVIQGYT8268-16-40 04:12:00 Test Item Value Reference Range Interpretation Comments WBC (test code = WBC) 4.1 3.7-10.4 [facility] HospitalTjtgdjiDLLXKQWVVT5945-55-82 04:12:00 Test Item Value Reference Range Interpretation Comments RBC (test code = RBC) 1.78 4.70-6.10 [facility] HospitalHrdysgwMISPZBSWXO7280-69-81 04:12:00 Test Item Value Reference Range Interpretation Comments Hgb (test code = Hgb) 6.5 14.0-18.0 [facility] HospitalHedowcbJPJEFQERHP8866-93-74 04:12:00 Test Item Value Reference Range Interpretation Comments Hct (test code = Hct) 19.5 42.0-54.0 [facility] HospitalDyddrhwYMNJHRSHCP0191-26-08 04:12:00 Test Item Value Reference Range Interpretation Comments MCV (test code = MCV) 110.0 80.0-94.0 [facility] HospitalKjlxmktZEKZJKSOSU4478-34-09 04:12:00 Test Item Value Reference Range Interpretation Comments MCH (test code = MCH) 36.5 pg 27.0-31.0 [facility] HospitalLipufolXKHCGNNRIN4973-33-52 04:12:00 Test Item Value Reference Range Interpretation Comments MCHC (test code = MCHC) 33.2 32.0-36.0 [facility] HospitalBgaqtitWQDFKLREAD1165-38-61 04:12:00 Test Item Value Reference Range Interpretation Comments RDW (test code = RDW) 19.0 11.5-14.5 [facility] HospitalWhpxzrdTCVGAWIYKV6902-62-93 04:12:00 Test Item Value Reference Range Interpretation Comments Platelet (test code = Platelet) 180 133-450 [facility] HospitalObcoxojPJPMGGKLJK9486-66-11 04:12:00 Test Item Value Reference Range Interpretation Comments MPV (test code = MPV) 8.3 7.4-10.4 [facility] HospitalVpoikmbBPZQPLCJXB5034-11-43 04:12:00 Test Item Value Reference Range Interpretation Comments PTT (test code = PTT) 45.4 s 22.9-35.8 [facility] HospitalJzqdsmeFGROLRWSRR1243-01-71 04:12:00 Test Item Value Reference Range Interpretation Comments PT (test code = PT) 19.1 s 12.0-14.7 [facility] HospitalAeaznuvKVLOBDHATE1891-00-42 04:12:00 Test Item Value Reference Range Interpretation Comments INR (test code = INR) 1.62 1 0.85-1.17 [facility] HospitalQajnllbVQSZHNAZIA5120-90-58 04:12:00 Test Item Value Reference Range Interpretation Comments RBC Morph (test code = See Note (11/24/21 RBC Morph) 11:12 PM) [facility] HospitalOubjpnsMFVZMFDKUO8087-27-41 04:12:00 Test Item Value Reference Range Interpretation Comments Plt Morph (test code = Normal (11/24/21 11:12 Plt Morph) PM) [facility] HospitalPhacefyALJBRXEYLD7068-12-12 04:12:00 Test Item Value Reference Range Interpretation Comments Segs (test code = Segs) 72.2 45.0-75.0 [facility] HospitalHsmhhpkPXQPEKFEFB1596-28-39 04:12:00 Test Item Value Reference Range Interpretation Comments Lymphocytes (test code = Lymphocytes) 16.2 20.0-40.0 [facility] HospitalBmnxkctLDGVEUBWJA5001-04-56 04:12:00 Test Item Value Reference Range Interpretation Comments Monocytes (test code = Monocytes) 8.0 2.0-12.0 [facility] HospitalVkzbncnAUHNLQFRDX8325-92-18 04:12:00 Test Item Value Reference Range Interpretation Comments Eosinophils (test code = 2.7 See_Comment [A utomated message] The Eosinophils) system which ge nerated this result tra nsmitted reference range : <=4.0. The reference r samantha was not used to int erpret this result as normal/abnormal . [facility] HospitalTvtfslbNCBFVACBCS2155-18-49 04:12:00 Test Item Value Reference Range Interpretation Comments Basophils (test code = 0.9 See_Comment [Aut omated message] The Basophils) system which ge nerated this result tra nsmitted reference range : <=1.0. The reference r samantha was not used to int erpret this result as normal/abnormal . [facility] HospitalXtvdpftCLBFJAUBAM4767-95-27 04:12:00 Test Item Value Reference Range Interpretation Comments Neutrophils # (test code = Neutrophils 2.9 1.5-8.1 #) [facility] HospitalOnctpvbEMSCKYSOZP9280-17-56 04:12:00 Test Item Value Reference Range Interpretation Comments Lymphocytes # (test code = Lymphocytes 0.7 1.0-5.5 #) [facility] HospitalTceawgxEROXEUSNAQ7185-70-43 04:12:00 Test Item Value Reference Range Interpretation Comments Monocytes # (test code 0.3 See_Comment [Aut omated message] The = Monocytes #) system which generated this result tra nsmitted reference range : <=0.8. The reference r samantha was not used to int erpret this result as normal/abnormal . [facility] HospitalPswxrfqAGQXENGYXJ2068-84-19 04:12:00 Test Item Value Reference Range Interpretation Comments Eosinophils # (test code 0.1 See_Comment [A utomated message] The = Eosinophils #) system whic h generated this result tra nsmitted reference range : <=0.5. The reference r samantha was not used to int erpret this result as normal/abnormal . [facility] HospitalOpzmzgtXBLSSRTTNK6596-80-29 04:12:00 Test Item Value Reference Range Interpretation Comments Anisocyte (test code = 1+ *ABN*(11/24/21 Anisocyte) 11:12 PM) [facility] HospitalRnrzzmlPBTRSDNGIH0712-72-50 04:12:00 Test Item Value Reference Range Interpretation Comments Macrocyte (test code = 1+ *ABN*(11/24/21 Macrocyte) 11:12 PM) [facility] HospitalUhizprvOLHPPNWFIZ0497-38-54 04:12:00 Test Item Value Reference Range Interpretation Comments Microcyte (test code = 1+ *ABN*(11/24/21 Microcyte) 11:12 PM) [facility] PDITWCN4532-93-00 04:12:00 Test Item Value Reference Range Interpretation Comments ABO/Rh (test code = ABO/Rh) AB POS [facility] VHPZIOW8149-17-71 04:12:00 Test Item Value Reference Range Interpretation Comments Antibody Scrn (test Negative (11/24/21 code = Antibody Scrn) 11:12 PM) [facility] LIRKYEF3277-91-81 04:12:00 Test Item Value Reference Range Interpretation Comments Total CK (test code = Total CK) 86 12-191 [facility]evilleC[facility] QBSKQVF7472-03-73 04:12:00 Test Item Value Reference Range Interpretation Comments HS Troponin I (test code = HS Troponin 316 I) [facility] [id number] 04:12:00 Test Item Value Reference Range Interpretation Comments Glucose Lvl (test code = Glucose Lvl) 261 70-99 [facility]2022-06-28 04:12:00 Test Item Value Reference Range Interpretation Comments BUN (test code = BUN) 60 7-22 [facility]2022-06-28 04:12:00 Test Item Value Reference Range Interpretation Comments Creatinine Lvl (test code = Creatinine 8.49 0.50-1.40 Lvl) [facility]2022-06-28 04:12:00 Test Item Value Reference Range Interpretation Comments Sodium Lvl (test code = Sodium Lvl) 133 135-145 [facility]2022-06-28 04:12:00 Test Item Value Reference Range Interpretation Comments Potassium Lvl (test code = Potassium 4.9 3.5-5.1 Lvl) [facility]2022-06-28 04:12:00 Test Item Value Reference Range Interpretation Comments Chloride Lvl (test code = Chloride Lvl) 93 95-109 [facility]2022-06-28 04:12:00 Test Item Value Reference Range Interpretation Comments CO2 (test code = CO2) 31 24-32 [facility]2022-06-28 04:12:00 Test Item Value Reference Range Interpretation Comments Calcium Lvl (test code = Calcium Lvl) 9.1 8.5-10.5 [facility]2022-06-28 04:12:00 Test Item Value Reference Range Interpretation Comments Total Protein (test code = Total 6.8 6.4-8.4 Protein) [facility]2022-06-28 04:12:00 Test Item Value Reference Range Interpretation Comments Albumin Lvl (test code = Albumin Lvl) 2.5 3.5-5.0 [facility]2022-06-28 04:12:00 Test Item Value Reference Range Interpretation Comments ALT (test code = ALT) 51 See_Comment [Auto mated message] The system which ge nerated this result transmit swathi reference range : <=65. The reference range was not used to interpr et this result as deny l/abnormal. [facility]2022-06-28 04:12:00 Test Item Value Reference Range Interpretation Comments AST (test code = AST) 36 See_Comment [Auto mated message] The system which ge nerated this result transmit swathi reference range : <=37. The reference range was not used to interpr et this result as deny l/abnormal. [place] 412362-06-28 04:12:00 Test Item Value Reference Range Interpretation Comments Alk Phos (test code = Alk Phos) 383 39-136 [facility]2022-06-28 04:12:00 Test Item Value Reference Range Interpretation Comments Bili Total (test code = Bili Total) 1.1 0.2-1.3 [place] 412362-06-28 04:12:00 Test Item Value Reference Range Interpretation Comments AGAP (test code = AGAP) 13.9 10.0-20.0 [place] 412362-06-28 04:12:00 Test Item Value Reference Range Interpretation Comments B/C Ratio (test code = B/C Ratio) 7 1 6-25 [place] 412362-06-28 04:12:00 Test Item Value Reference Range Interpretation Comments Globulin (test code = Globulin) 4.3 2.7-4.2 [place] 412362-06-28 04:12:00 Test Item Value Reference Range Interpretation Comments A/G Ratio (test code = A/G Ratio) 0.6 1 0.7-1.6 [place] 412362-06-28 04:12:00 Test Item Value Reference Range Interpretation Comments eGFR (test code = eGFR) 5 [place] 412362-06-28 04:12:00 Test Item Value Reference Range Interpretation Comments Procalcitonin Lvl (test 0.69 See_Comment [Au tomated message] code = Procalcitonin Lvl) Th e system which generated this result transmitted ref erence range: <=0.10. The reference range was not used to interpr et this result as normal/abnormal . [facility] HospitalSpqxmvaBXNFRMWMHG3073-59-25 04:12:00 Test Item Value Reference Range Interpretation Comments WBC (test code = WBC) 4.1 3.7-10.4 [facility] HospitalEnphhksXAGVNBTDSV3842-84-77 04:12:00 Test Item Value Reference Range Interpretation Comments RBC (test code = RBC) 1.78 4.70-6.10 [facility]WrbpastYELLQXPJBH9668-25-41 04:12:00 Test Item Value Reference Range Interpretation Comments Hgb (test code = Hgb) 6.5 14.0-18.0 [place] 264282-06-28 04:12:00 Test Item Value Reference Range Interpretation Comments Hct (test code = Hct) 19.5 42.0-54.0 [facility] HospitalAztqhrpDMEAFIEZWM6053-32-01 04:12:00 Test Item Value Reference Range Interpretation Comments MCV (test code = MCV) 110.0 80.0-94.0 [place] 264282-06-28 04:12:00 Test Item Value Reference Range Interpretation Comments MCH (test code = MCH) 36.5 pg 27.0-31.0 [facility] HospitalKfftntnPMCEDNLAXI8877-65-70 04:12:00 Test Item Value Reference Range Interpretation Comments MCHC (test code = MCHC) 33.2 32.0-36.0 [facility] HospitalUpmrhvmUNGHSVJIIK4141-45-12 04:12:00 Test Item Value Reference Range Interpretation Comments RDW (test code = RDW) 19.0 11.5-14.5 [facility] HospitalSenbqnmDLPIRBEZNV9657-95-72 04:12:00 Test Item Value Reference Range Interpretation Comments Platelet (test code = Platelet) 180 133-450 [facility] HospitalCneilgeCXYPPTBQDR1777-87-19 04:12:00 Test Item Value Reference Range Interpretation Comments MPV (test code = MPV) 8.3 7.4-10.4 [place] 264282-06-28 04:12:00 Test Item Value Reference Range Interpretation Comments PTT (test code = PTT) 45.4 s 22.9-35.8 [place] 264282-06-28 04:12:00 Test Item Value Reference Range Interpretation Comments PT (test code = PT) 19.1 s 12.0-14.7 [place] 264282-06-28 04:12:00 Test Item Value Reference Range Interpretation Comments INR (test code = INR) 1.62 1 0.85-1.17 [facility] HospitalLfxkbxwWLJCMBMFCF3339-83-97 04:12:00 Test Item Value Reference Range Interpretation Comments RBC Morph (test code = See Note (11/24/21 RBC Morph) 11:12 PM) [facility] HospitalRpfaobmBODBRJKGUI8231-76-68 04:12:00 Test Item Value Reference Range Interpretation Comments Plt Morph (test code = Normal (11/24/21 11:12 Plt Morph) PM) [facility] HospitalBpkmrnkUIISUHGJFL4026-85-70 04:12:00 Test Item Value Reference Range Interpretation Comments Segs (test code = Segs) 72.2 45.0-75.0 [place] 264282-06-28 04:12:00 Test Item Value Reference Range Interpretation Comments Lymphocytes (test code = Lymphocytes) 16.2 20.0-40.0 [place] 264282-06-28 04:12:00 Test Item Value Reference Range Interpretation Comments Monocytes (test code = Monocytes) 8.0 2.0-12.0 [facility] HospitalDifooivZMAQTLBXTM9700-90-02 04:12:00 Test Item Value Reference Range Interpretation Comments Eosinophils (test code = 2.7 See_Comment [A utomated message] The Eosinophils) system which ge nerated this result tra nsmitted reference range : <=4.0. The reference r samantha was not used to int erpret this result as normal/abnormal . [facility] HospitalEfnvqnsWKCGACMAGC4503-99-85 04:12:00 Test Item Value Reference Range Interpretation Comments Basophils (test code = 0.9 See_Comment [Aut omated message] The Basophils) system which ge nerated this result tra nsmitted reference range : <=1.0. The reference r samantha was not used to int erpret this result as normal/abnormal . [facility] HospitalRkgmqztZEEKYDQFCP7166-75-33 04:12:00 Test Item Value Reference Range Interpretation Comments Neutrophils # (test code = Neutrophils 2.9 1.5-8.1 #) [place] 264282-06-28 04:12:00 Test Item Value Reference Range Interpretation Comments Lymphocytes # (test code = Lymphocytes 0.7 1.0-5.5 #) [facility] HospitalZzgifjxESCIONXCZQ0815-44-18 04:12:00 Test Item Value Reference Range Interpretation Comments Monocytes # (test code 0.3 See_Comment [Aut omated message] The = Monocytes #) system which generated this result tra nsmitted reference range : <=0.8. The reference r samantha was not used to int erpret this result as normal/abnormal . [facility]evilleRxzzoesENNHTCQQSZ3765-59-66 04:12:00 Test Item Value Reference Range Interpretation Comments Eosinophils # (test code 0.1 See_Comment [A utomated message] The = Eosinophils #) system whic h generated this result tra nsmitted reference range : <=0.5. The reference r samantha was not used to int erpret this result as normal/abnormal . [facility]landEgmhpkmZEOMDYCKHO6348-11-61 04:12:00 Test Item Value Reference Range Interpretation Comments Anisocyte (test code = 1+ *ABN*(11/24/21 Anisocyte) 11:12 PM) [facility]evilleTzkosbpJCTZFBAOWQ1893-20-37 04:12:00 Test Item Value Reference Range Interpretation Comments Macrocyte (test code = 1+ *ABN*(11/24/21 Macrocyte) 11:12 PM) [facility]landKszfwlkJCPRIPNJQG7701-71-79 04:12:00 Test Item Value Reference Range Interpretation Comments Microcyte (test code = 1+ *ABN*(11/24/21 Microcyte) 11:12 PM) [facility]Object[facility] [id number] 04:12:00 Test Item Value Reference Range Interpretation Comments ABO/Rh (test code = ABO/Rh) AB POS [facility] [employer] JTDSZQN3971-25-40 04:12:00 Test Item Value Reference Range Interpretation Comments Antibody Scrn (test Negative (11/24/21 code = Antibody Scrn) 11:12 PM) [facility]landFlared[facility]D DLSXDWF7205-46-22 04:12:00 Test Item Value Reference Range Interpretation Comments Total CK (test code = Total CK) 86 12-191 [facility]landFlared[facility] BYNGGSJ3694-19-35 04:12:00 Test Item Value Reference Range Interpretation Comments HS Troponin I (test code = HS Troponin 316 I) [facility] [employer]2022-06-28 04:12:00 Test Item Value Reference Range Interpretation Comments Glucose Lvl (test code = Glucose Lvl) 261 70-99 [facility] [employer]2022-06-28 04:12:00 Test Item Value Reference Range Interpretation Comments BUN (test code = BUN) 60 7-22 [place] 412362-06-28 04:12:00 Test Item Value Reference Range Interpretation Comments Creatinine Lvl (test code = Creatinine 8.49 0.50-1.40 Lvl) [place] 412362-06-28 04:12:00 Test Item Value Reference Range Interpretation Comments Sodium Lvl (test code = Sodium Lvl) 133 135-145 [place] 412362-06-28 04:12:00 Test Item Value Reference Range Interpretation Comments Potassium Lvl (test code = Potassium 4.9 3.5-5.1 Lvl) [place] [address]-06-28 04:12:00 Test Item Value Reference Range Interpretation Comments Chloride Lvl (test code = Chloride Lvl) 93 95-109 [place] 412362-06-28 04:12:00 Test Item Value Reference Range Interpretation Comments CO2 (test code = CO2) 31 24-32 [place] 412362-06-28 04:12:00 Test Item Value Reference Range Interpretation Comments Calcium Lvl (test code = Calcium Lvl) 9.1 8.5-10.5 [place] 412362-06-28 04:12:00 Test Item Value Reference Range Interpretation Comments Total Protein (test code = Total 6.8 6.4-8.4 Protein) [place] 412362-06-28 04:12:00 Test Item Value Reference Range Interpretation Comments Albumin Lvl (test code = Albumin Lvl) 2.5 3.5-5.0 [place] 412362-06-28 04:12:00 Test Item Value Reference Range Interpretation Comments ALT (test code = ALT) 51 See_Comment [Auto mated message] The system which [employer] nerated this result transmit swathi reference range : <=65. The reference range was not used to interpr et this result as deny l/abnormal. [place] 412362-06-28 04:12:00 Test Item Value Reference Range Interpretation Comments AST (test code = AST) 36 See_Comment [Auto mated message] The system which ge nerated this result transmit swathi reference range : <=37. The reference range was not used to interpr et this result as deny l/abnormal. [place] [address]-06-28 04:12:00 Test Item Value Reference Range Interpretation Comments Alk Phos (test code = Alk Phos) 383 39-136 [facility]2022-06-28 04:12:00 Test Item Value Reference Range Interpretation Comments Bili Total (test code = Bili Total) 1.1 0.2-1.3 [place] 412362-06-28 04:12:00 Test Item Value Reference Range Interpretation Comments AGAP (test code = AGAP) 13.9 10.0-20.0 [place] 412362-06-28 04:12:00 Test Item Value Reference Range Interpretation Comments B/C Ratio (test code = B/C Ratio) 7 1 6-25 [place] 412362-06-28 04:12:00 Test Item Value Reference Range Interpretation Comments Globulin (test code = Globulin) 4.3 2.7-4.2 [place] 412362-06-28 04:12:00 Test Item Value Reference Range Interpretation Comments A/G Ratio (test code = A/G Ratio) 0.6 1 0.7-1.6 [place] 412362-06-28 04:12:00 Test Item Value Reference Range Interpretation Comments eGFR (test code = eGFR) 5 [place] 412362-06-28 04:12:00 Test Item Value Reference Range Interpretation Comments Procalcitonin Lvl (test 0.69 See_Comment [Au tomated message] code = Procalcitonin Lvl) Th e system which generated this result transmitted ref erence range: <=0.10. The reference range was not used to interpr et this result as normal/abnormal . [place] 264282-06-28 04:12:00 Test Item Value Reference Range Interpretation Comments WBC (test code = WBC) 4.1 3.7-10.4 [place] 264282-06-28 04:12:00 Test Item Value Reference Range Interpretation Comments RBC (test code = RBC) 1.78 4.70-6.10 [place] 264282-06-28 04:12:00 Test Item Value Reference Range Interpretation Comments Hgb (test code = Hgb) 6.5 14.0-18.0 [place] 264282-06-28 04:12:00 Test Item Value Reference Range Interpretation Comments Hct (test code = Hct) 19.5 42.0-54.0 [facility] HospitalBprfqtgOIXRLITAAD2237-08-71 04:12:00 Test Item Value Reference Range Interpretation Comments MCV (test code = MCV) 110.0 80.0-94.0 [facility] HospitalLvxqgpcROZSVJOCDF2208-51-07 04:12:00 Test Item Value Reference Range Interpretation Comments MCH (test code = MCH) 36.5 pg 27.0-31.0 [facility] HospitalUuzgcssSDHAKSOVPS0107-86-12 04:12:00 Test Item Value Reference Range Interpretation Comments MCHC (test code = MCHC) 33.2 32.0-36.0 [facility] HospitalCwoejcvZPXUESGECE6055-23-44 04:12:00 Test Item Value Reference Range Interpretation Comments RDW (test code = RDW) 19.0 11.5-14.5 [facility] HospitalBlndbyaLKABYUKKZW5602-62-12 04:12:00 Test Item Value Reference Range Interpretation Comments Platelet (test code = Platelet) 180 133-450 [facility] HospitalVbseekcFQWMEEMHIE4933-65-86 04:12:00 Test Item Value Reference Range Interpretation Comments MPV (test code = MPV) 8.3 7.4-10.4 [facility] HospitalBrbuskmDXLLQABLLL7834-87-30 04:12:00 Test Item Value Reference Range Interpretation Comments PTT (test code = PTT) 45.4 s 22.9-35.8 [facility] HospitalWizcavkVRAERIAVLC3850-99-20 04:12:00 Test Item Value Reference Range Interpretation Comments PT (test code = PT) 19.1 s 12.0-14.7 [facility] HospitalRsagltySCPDDYLACM1574-42-15 04:12:00 Test Item Value Reference Range Interpretation Comments INR (test code = INR) 1.62 1 0.85-1.17 [facility] HospitalPcykwmoHYXMZIGEPG7918-13-61 04:12:00 Test Item Value Reference Range Interpretation Comments RBC Morph (test code = See Note (11/24/21 RBC Morph) 11:12 PM) [facility] HospitalBaagumoNPHLAUDZPW3094-72-97 04:12:00 Test Item Value Reference Range Interpretation Comments Plt Morph (test code = Normal (11/24/21 11:12 Plt Morph) PM) [facility] HospitalVjwmmxpYHRGDAVGXI0293-31-32 04:12:00 Test Item Value Reference Range Interpretation Comments Segs (test code = Segs) 72.2 45.0-75.0 [facility] HospitalSrlrwnbJTMBSSEWRY7967-94-86 04:12:00 Test Item Value Reference Range Interpretation Comments Lymphocytes (test code = Lymphocytes) 16.2 20.0-40.0 [place] 264282-06-28 04:12:00 Test Item Value Reference Range Interpretation Comments Monocytes (test code = Monocytes) 8.0 2.0-12.0 [facility] HospitalDbdzxrcBRUDPHXKGR6351-47-69 04:12:00 Test Item Value Reference Range Interpretation Comments Eosinophils (test code = 2.7 See_Comment [A utomated message] The Eosinophils) system which ge nerated this result tra nsmitted reference range : <=4.0. The reference r samantha was not used to int erpret this result as normal/abnormal . [place] 264282-06-28 04:12:00 Test Item Value Reference Range Interpretation Comments Basophils (test code = 0.9 See_Comment [Aut omated message] The Basophils) system which ge nerated this result tra nsmitted reference range : <=1.0. The reference r samantha was not used to int erpret this result as normal/abnormal . [facility] HospitalPqyapooBNSLZVLCWU5114-43-03 04:12:00 Test Item Value Reference Range Interpretation Comments Neutrophils # (test code = Neutrophils 2.9 1.5-8.1 #) [facility] HospitalCxfizfdLBJRKPNMYM4756-52-04 04:12:00 Test Item Value Reference Range Interpretation Comments Lymphocytes # (test code = Lymphocytes 0.7 1.0-5.5 #) [place] 264282-06-28 04:12:00 Test Item Value Reference Range Interpretation Comments Monocytes # (test code 0.3 See_Comment [Aut omated message] The = Monocytes #) system which generated this result tra nsmitted reference range : <=0.8. The reference r samantha was not used to int erpret this result as normal/abnormal . [facility] HospitalBxypqojBYVCIHSVDI9844-03-76 04:12:00 Test Item Value Reference Range Interpretation Comments Eosinophils # (test code 0.1 See_Comment [A utomated message] The = Eosinophils #) system whic h generated this result tra nsmitted reference range : <=0.5. The reference r samantha was not used to int erpret this result as normal/abnormal . [facility]DfntaonSQJWZRRTRH2260-63-62 04:12:00 Test Item Value Reference Range Interpretation Comments Anisocyte (test code = 1+ *ABN*(11/24/21 Anisocyte) 11:12 PM) [facility] BeevilleYlelxusEWXHTMLECJ0219-69-35 04:12:00 Test Item Value Reference Range Interpretation Comments Macrocyte (test code = 1+ *ABN*(11/24/21 Macrocyte) 11:12 PM) [facility] HospitalKvvbeagPEVKRKAYBU4703-43-12 04:12:00 Test Item Value Reference Range Interpretation Comments Microcyte (test code = 1+ *ABN*(11/24/21 Microcyte) 11:12 PM) [facility] [id number] 04:12:00 Test Item Value Reference Range Interpretation Comments ABO/Rh (test code = ABO/Rh) AB POS [facility]Tele[facility] [id number] 04:12:00 Test Item Value Reference Range Interpretation Comments Antibody Scrn (test Negative (11/24/21 code = Antibody Scrn) 11:12 PM) [facility]landFl[facility] EUBGQKK3279-32-22 04:12:00 Test Item Value Reference Range Interpretation Comments Total CK (test code = Total CK) 86 12-191 [facility]evilleCyn[facility] [employer] DCOGOGM5950-58-57 04:12:00 Test Item Value Reference Range Interpretation Comments HS Troponin I (test code = HS Troponin 316 I) [facility]evilleBl[facility] [id number] 04:12:00 Test Item Value Reference Range Interpretation Comments Glucose Lvl (test code = Glucose Lvl) 261 70-99 [facility] PearlandZimride YDAWP1702-88-28 04:12:00 Test Item Value Reference Range Interpretation Comments BUN (test code = BUN) 60 7-22 [facility] PearlandZim[facility] MROQU9539-81-64 04:12:00 Test Item Value Reference Range Interpretation Comments Creatinine Lvl (test code = Creatinine 8.49 0.50-1.40 Lvl) [facility] PearlandZim[facility] GLGWK5263-08-06 04:12:00 Test Item Value Reference Range Interpretation Comments Sodium Lvl (test code = Sodium Lvl) 133 135-145 [facility] PearlandZim[facility] [id number] 04:12:00 Test Item Value Reference Range Interpretation Comments Potassium Lvl (test code = Potassium 4.9 3.5-5.1 Lvl) [place] 412362-06-28 04:12:00 Test Item Value Reference Range Interpretation Comments Chloride Lvl (test code = Chloride Lvl) 93 95-109 [place] 412362-06-28 04:12:00 Test Item Value Reference Range Interpretation Comments CO2 (test code = CO2) 31 24-32 [place] 412362-06-28 04:12:00 Test Item Value Reference Range Interpretation Comments Calcium Lvl (test code = Calcium Lvl) 9.1 8.5-10.5 [place] 412362-06-28 04:12:00 Test Item Value Reference Range Interpretation Comments Total Protein (test code = Total 6.8 6.4-8.4 Protein) [place] 412362-06-28 04:12:00 Test Item Value Reference Range Interpretation Comments Albumin Lvl (test code = Albumin Lvl) 2.5 3.5-5.0 [place] 412362-06-28 04:12:00 Test Item Value Reference Range Interpretation Comments ALT (test code = ALT) 51 See_Comment [Auto mated message] The system which ge nerated this result transmit swathi reference range : <=65. The reference range was not used to interpr et this result as deny l/abnormal. [place] 412362-06-28 04:12:00 Test Item Value Reference Range Interpretation Comments AST (test code = AST) 36 See_Comment [Auto mated message] The system which ge nerated this result transmit swathi reference range : <=37. The reference range was not used to interpr et this result as deny l/abnormal. [place] 412362-06-28 04:12:00 Test Item Value Reference Range Interpretation Comments Alk Phos (test code = Alk Phos) 383 39-136 [place] 412362-06-28 04:12:00 Test Item Value Reference Range Interpretation Comments Bili Total (test code = Bili Total) 1.1 0.2-1.3 [place] 412362-06-28 04:12:00 Test Item Value Reference Range Interpretation Comments AGAP (test code = AGAP) 13.9 10.0-20.0 [place] 412362-06-28 04:12:00 Test Item Value Reference Range Interpretation Comments B/C Ratio (test code = B/C Ratio) 7 1 6-25 [place] 412362-06-28 04:12:00 Test Item Value Reference Range Interpretation Comments Globulin (test code = Globulin) 4.3 2.7-4.2 [place] 412362-06-28 04:12:00 Test Item Value Reference Range Interpretation Comments A/G Ratio (test code = A/G Ratio) 0.6 1 0.7-1.6 [place] 412362-06-28 04:12:00 Test Item Value Reference Range Interpretation Comments eGFR (test code = eGFR) 5 [place] 412362-06-28 04:12:00 Test Item Value Reference Range Interpretation Comments Procalcitonin Lvl (test 0.69 See_Comment [Au tomated message] code = Procalcitonin Lvl) Th e system which generated this result transmitted ref erence range: <=0.10. The reference range was not used to interpr et this result as normal/abnormal . [place] 264282-06-28 04:12:00 Test Item Value Reference Range Interpretation Comments WBC (test code = WBC) 4.1 3.7-10.4 [place] 264282-06-28 04:12:00 Test Item Value Reference Range Interpretation Comments RBC (test code = RBC) 1.78 4.70-6.10 [place] 264282-06-28 04:12:00 Test Item Value Reference Range Interpretation Comments Hgb (test code = Hgb) 6.5 14.0-18.0 [place] 264282-06-28 04:12:00 Test Item Value Reference Range Interpretation Comments Hct (test code = Hct) 19.5 42.0-54.0 [place] [address]-06-28 04:12:00 Test Item Value Reference Range Interpretation Comments MCV (test code = MCV) 110.0 80.0-94.0 [place] 264282-06-28 04:12:00 Test Item Value Reference Range Interpretation Comments MCH (test code = MCH) 36.5 pg 27.0-31.0 [place] 264282-06-28 04:12:00 Test Item Value Reference Range Interpretation Comments MCHC (test code = MCHC) 33.2 32.0-36.0 [facility] HospitalFhtmomrUFWITXPESP0984-31-23 04:12:00 Test Item Value Reference Range Interpretation Comments RDW (test code = RDW) 19.0 11.5-14.5 [facility] HospitalKabvdlzUTVQMSXFIV7851-99-72 04:12:00 Test Item Value Reference Range Interpretation Comments Platelet (test code = Platelet) 180 133-450 [facility] HospitalRxitosdMBQANSFQJV2181-03-10 04:12:00 Test Item Value Reference Range Interpretation Comments MPV (test code = MPV) 8.3 7.4-10.4 [facility] HospitalVlcnprsCEUZFWEGBL4404-69-97 04:12:00 Test Item Value Reference Range Interpretation Comments PTT (test code = PTT) 45.4 s 22.9-35.8 [facility] HospitalXpseuqpZYISIFIDCX5268-70-60 04:12:00 Test Item Value Reference Range Interpretation Comments PT (test code = PT) 19.1 s 12.0-14.7 [facility] HospitalOtfzbiaUOWVOOBNON1010-37-71 04:12:00 Test Item Value Reference Range Interpretation Comments INR (test code = INR) 1.62 1 0.85-1.17 [facility] HospitalVlxwgitUUENCBEBBW7223-15-68 04:12:00 Test Item Value Reference Range Interpretation Comments RBC Morph (test code = See Note (11/24/21 RBC Morph) 11:12 PM) [facility] HospitalTwwcisrXAYALVEOQH3668-94-29 04:12:00 Test Item Value Reference Range Interpretation Comments Plt Morph (test code = Normal (11/24/21 11:12 Plt Morph) PM) [facility] HospitalPsriucaSZGDFBELFQ8320-60-78 04:12:00 Test Item Value Reference Range Interpretation Comments Segs (test code = Segs) 72.2 45.0-75.0 [facility] HospitalWhhuydbUQDVYSGFYK7927-60-87 04:12:00 Test Item Value Reference Range Interpretation Comments Lymphocytes (test code = Lymphocytes) 16.2 20.0-40.0 [facility] HospitalDaeldkwHAJRHNRSZT3607-79-17 04:12:00 Test Item Value Reference Range Interpretation Comments Monocytes (test code = Monocytes) 8.0 2.0-12.0 [facility] HospitalGggzvovYIYYXVULHZ7143-35-48 04:12:00 Test Item Value Reference Range Interpretation Comments Eosinophils (test code = 2.7 See_Comment [A utomated message] The Eosinophils) system which ge nerated this result tra nsmitted reference range : <=4.0. The reference r samantha was not used to int erpret this result as normal/abnormal . [facility] HospitalGevujrgHENMPNVEJG8018-72-67 04:12:00 Test Item Value Reference Range Interpretation Comments Basophils (test code = 0.9 See_Comment [Aut omated message] The Basophils) system which ge nerated this result tra nsmitted reference range : <=1.0. The reference r samantha was not used to int erpret this result as normal/abnormal . [facility] HospitalLnfpyokOFOIUBWLOP4266-27-47 04:12:00 Test Item Value Reference Range Interpretation Comments Neutrophils # (test code = Neutrophils 2.9 1.5-8.1 #) [place] 264282-06-28 04:12:00 Test Item Value Reference Range Interpretation Comments Lymphocytes # (test code = Lymphocytes 0.7 1.0-5.5 #) [place] 264282-06-28 04:12:00 Test Item Value Reference Range Interpretation Comments Monocytes # (test code 0.3 See_Comment [Aut omated message] The = Monocytes #) system which generated this result tra nsmitted reference range : <=0.8. The reference r samantha was not used to int erpret this result as normal/abnormal . [facility] HospitalJmymuaqHETVGHDEUK9703-74-18 04:12:00 Test Item Value Reference Range Interpretation Comments Eosinophils # (test code 0.1 See_Comment [A utomated message] The = Eosinophils #) system ic h generated this result tra nsmitted reference range : <=0.5. The reference r samantha was not used to int erpret this result as normal/abnormal . [facility] HospitalQpakpwhDBVEVQMDXJ0476-45-60 04:12:00 Test Item Value Reference Range Interpretation Comments Anisocyte (test code = 1+ *ABN*(11/24/21 Anisocyte) 11:12 PM) [facility] HospitalSygrgoyPTVMZRURKO2206-80-66 04:12:00 Test Item Value Reference Range Interpretation Comments Macrocyte (test code = 1+ *ABN*(11/24/21 Macrocyte) 11:12 PM) [facility] HospitalZlqpbqhAKXDHGBXCV9963-96-24 04:12:00 Test Item Value Reference Range Interpretation Comments Microcyte (test code = 1+ *ABN*(11/24/21 Microcyte) 11:12 PM) [facility] [employer] AFONPVR1554-84-43 04:12:00 Test Item Value Reference Range Interpretation Comments ABO/Rh (test code = ABO/Rh) AB POS [facility] [employer] [id number] 04:12:00 Test Item Value Reference Range Interpretation Comments Antibody Scrn (test Negative (11/24/21 code = Antibody Scrn) 11:12 PM) [facility] [employer] [id number] 04:12:00 Test Item Value Reference Range Interpretation Comments Total CK (test code = Total CK) 86 12-191 [facility] [employer] [id number] 04:12:00 Test Item Value Reference Range Interpretation Comments HS Troponin I (test code = HS Troponin 316 I) [facility]2022-06-28 04:12:00 Test Item Value Reference Range Interpretation Comments Glucose Lvl (test code = Glucose Lvl) 261 70-99 [facility]2022-06-28 04:12:00 Test Item Value Reference Range Interpretation Comments BUN (test code = BUN) 60 7-22 [facility] [employer]2022-06-28 04:12:00 Test Item Value Reference Range Interpretation Comments Creatinine Lvl (test code = Creatinine 8.49 0.50-1.40 Lvl) [facility]2022-06-28 04:12:00 Test Item Value Reference Range Interpretation Comments Sodium Lvl (test code = Sodium Lvl) 133 135-145 [facility]2022-06-28 04:12:00 Test Item Value Reference Range Interpretation Comments Potassium Lvl (test code = Potassium 4.9 3.5-5.1 Lvl) [facility]2022-06-28 04:12:00 Test Item Value Reference Range Interpretation Comments Chloride Lvl (test code = Chloride Lvl) 93 95-109 [facility]2022-06-28 04:12:00 Test Item Value Reference Range Interpretation Comments CO2 (test code = CO2) 31 24-32 [facility] [employer]2022-06-28 04:12:00 Test Item Value Reference Range Interpretation Comments Calcium Lvl (test code = Calcium Lvl) 9.1 8.5-10.5 [facility]2022-06-28 04:12:00 Test Item Value Reference Range Interpretation Comments Total Protein (test code = Total 6.8 6.4-8.4 Protein) [place] 412362-06-28 04:12:00 Test Item Value Reference Range Interpretation Comments Albumin Lvl (test code = Albumin Lvl) 2.5 3.5-5.0 [id number] 04:12:00 Test Item Value Reference Range Interpretation Comments ALT (test code = ALT) 51 See_Comment [Auto mated message] The system which ge nerated this result transmit swathi reference range : <=65. The reference range was not used to interpr et this result as deny l/abnormal. [facility] [id number] 04:12:00 Test Item Value Reference Range Interpretation Comments AST (test code = AST) 36 See_Comment [Auto mated message] The system which ge nerated this result transmit swathi reference range : <=37. The reference range was not used to interpr et this result as deny l/abnormal. [facility] [id number] 04:12:00 Test Item Value Reference Range Interpretation Comments Alk Phos (test code = Alk Phos) 383 39-136 [facility] [id number] 04:12:00 Test Item Value Reference Range Interpretation Comments Bili Total (test code = Bili Total) 1.1 0.2-1.3 [facility] [id number] 04:12:00 Test Item Value Reference Range Interpretation Comments AGAP (test code = AGAP) 13.9 10.0-20.0 [facility] [id number] 04:12:00 Test Item Value Reference Range Interpretation Comments B/C Ratio (test code = B/C Ratio) 7 1 6-25 [facility] [id number] 04:12:00 Test Item Value Reference Range Interpretation Comments Globulin (test code = Globulin) 4.3 2.7-4.2 [facility] [id number] 04:12:00 Test Item Value Reference Range Interpretation Comments A/G Ratio (test code = A/G Ratio) 0.6 1 0.7-1.6 [facility] [id number] 04:12:00 Test Item Value Reference Range Interpretation Comments eGFR (test code = eGFR) 5 [facility]2022-06-28 04:12:00 Test Item Value Reference Range Interpretation Comments Procalcitonin Lvl (test 0.69 See_Comment [Au tomated message] code = Procalcitonin Lvl) Th e system which generated this result transmitted ref erence range: <=0.10. The reference range was not used to interpr et this result as normal/abnormal . [facility] HospitalVvaqlkkOEKNIAEFEI5757-95-02 04:12:00 Test Item Value Reference Range Interpretation Comments WBC (test code = WBC) 4.1 3.7-10.4 [facility] HospitalMzhjojyJYQMECNKLY2548-13-62 04:12:00 Test Item Value Reference Range Interpretation Comments RBC (test code = RBC) 1.78 4.70-6.10 [facility] HospitalEfjwwdmJCAWDZMMKE5749-15-25 04:12:00 Test Item Value Reference Range Interpretation Comments Hgb (test code = Hgb) 6.5 14.0-18.0 [facility] HospitalJjaqihsEHSVOODYCV9399-06-35 04:12:00 Test Item Value Reference Range Interpretation Comments Hct (test code = Hct) 19.5 42.0-54.0 [place] 264282-06-28 04:12:00 Test Item Value Reference Range Interpretation Comments MCV (test code = MCV) 110.0 80.0-94.0 [facility] HospitalNnsdecpXLVYVABQYR5443-90-15 04:12:00 Test Item Value Reference Range Interpretation Comments MCH (test code = MCH) 36.5 pg 27.0-31.0 [facility] HospitalEkqurpuSBSFVELNCP4893-02-87 04:12:00 Test Item Value Reference Range Interpretation Comments MCHC (test code = MCHC) 33.2 32.0-36.0 [facility] HospitalEmnhxvjJLJAWWVDGO9627-44-51 04:12:00 Test Item Value Reference Range Interpretation Comments RDW (test code = RDW) 19.0 11.5-14.5 [facility] HospitalAphgsizUURCPVEQMD8399-02-33 04:12:00 Test Item Value Reference Range Interpretation Comments Platelet (test code = Platelet) 180 133-450 [facility] HospitalGpruzkhKYHWKPKAUI5011-03-13 04:12:00 Test Item Value Reference Range Interpretation Comments MPV (test code = MPV) 8.3 7.4-10.4 [facility] HospitalToqwzxhYTQTPTVTHN2466-13-90 04:12:00 Test Item Value Reference Range Interpretation Comments PTT (test code = PTT) 45.4 s 22.9-35.8 [place] 264282-06-28 04:12:00 Test Item Value Reference Range Interpretation Comments PT (test code = PT) 19.1 s 12.0-14.7 [place] 264282-06-28 04:12:00 Test Item Value Reference Range Interpretation Comments INR (test code = INR) 1.62 1 0.85-1.17 [place] 264282-06-28 04:12:00 Test Item Value Reference Range Interpretation Comments RBC Morph (test code = See Note (11/24/21 RBC Morph) 11:12 PM) [place] 264282-06-28 04:12:00 Test Item Value Reference Range Interpretation Comments Plt Morph (test code = Normal (11/24/21 11:12 Plt Morph) PM) [place] 264282-06-28 04:12:00 Test Item Value Reference Range Interpretation Comments Segs (test code = Segs) 72.2 45.0-75.0 [facility] HospitalDisibkyTYYIHRKVFC6581-96-25 04:12:00 Test Item Value Reference Range Interpretation Comments Lymphocytes (test code = Lymphocytes) 16.2 20.0-40.0 [place] 264282-06-28 04:12:00 Test Item Value Reference Range Interpretation Comments Monocytes (test code = Monocytes) 8.0 2.0-12.0 [place] 264282-06-28 04:12:00 Test Item Value Reference Range Interpretation Comments Eosinophils (test code = 2.7 See_Comment [A utomated message] The Eosinophils) system which ge nerated this result tra nsmitted reference range : <=4.0. The reference r samantha was not used to int erpret this result as normal/abnormal . [place] 264282-06-28 04:12:00 Test Item Value Reference Range Interpretation Comments Basophils (test code = 0.9 See_Comment [Aut omated message] The Basophils) system which ge nerated this result tra nsmitted reference range : <=1.0. The reference r samantha was not used to int erpret this result as normal/abnormal . [facility] HospitalEkuzodcMQOOLTABYJ2259-26-01 04:12:00 Test Item Value Reference Range Interpretation Comments Neutrophils # (test code = Neutrophils 2.9 1.5-8.1 #) [facility] HospitalQdlqcclASOZKCSQFM6587-38-69 04:12:00 Test Item Value Reference Range Interpretation Comments Lymphocytes # (test code = Lymphocytes 0.7 1.0-5.5 #) [facility] HospitalPxxtwvkJVOBPISKWV5196-46-25 04:12:00 Test Item Value Reference Range Interpretation Comments Monocytes # (test code 0.3 See_Comment [Aut omated message] The = Monocytes #) system which generated this result tra nsmitted reference range : <=0.8. The reference r samantha was not used to int erpret this result as normal/abnormal . [facility] HospitalVblyxcyWIYWHARNOB1382-34-17 04:12:00 Test Item Value Reference Range Interpretation Comments Eosinophils # (test code 0.1 See_Comment [A utomated message] The = Eosinophils #) system whic h generated this result tra nsmitted reference range : <=0.5. The reference r samantha was not used to int erpret this result as normal/abnormal . [facility] HospitalTaxbhdhAFIAFAYKJG3804-45-25 04:12:00 Test Item Value Reference Range Interpretation Comments Anisocyte (test code = 1+ *ABN*(11/24/21 Anisocyte) 11:12 PM) [facility] HospitalJxbrtdfPQZURBVUKF4390-64-11 04:12:00 Test Item Value Reference Range Interpretation Comments Macrocyte (test code = 1+ *ABN*(11/24/21 Macrocyte) 11:12 PM) [facility] HospitalIztblfhOEWDLHPOCE2090-20-57 04:12:00 Test Item Value Reference Range Interpretation Comments Microcyte (test code = 1+ *ABN*(11/24/21 Microcyte) 11:12 PM) [facility] ZVYALGJ5097-74-63 04:12:00 Test Item Value Reference Range Interpretation Comments ABO/Rh (test code = ABO/Rh) AB POS [facility] YSGMPEW6941-12-59 04:12:00 Test Item Value Reference Range Interpretation Comments Antibody Scrn (test Negative (11/24/21 code = Antibody Scrn) 11:12 PM) [facility]evilleFinancial Investors Insurance CorporationDIAC JOSRJRT2098-71-65 04:12:00 Test Item Value Reference Range Interpretation Comments Total CK (test code = Total CK) 86 12-191 [facility]evilleCARDIAC RWWHEIA7344-26-06 04:12:00 Test Item Value Reference Range Interpretation Comments HS Troponin I (test code = HS Troponin 316 I) [facility] OXZIV2503-04-88 04:12:00 Test Item Value Reference Range Interpretation Comments Glucose Lvl (test code = Glucose Lvl) 261 70-99 [facility]2022-06-28 04:12:00 Test Item Value Reference Range Interpretation Comments BUN (test code = BUN) 60 7-22 [facility]2022-06-28 04:12:00 Test Item Value Reference Range Interpretation Comments Creatinine Lvl (test code = Creatinine 8.49 0.50-1.40 Lvl) [facility]2022-06-28 04:12:00 Test Item Value Reference Range Interpretation Comments Sodium Lvl (test code = Sodium Lvl) 133 135-145 [facility]2022-06-28 04:12:00 Test Item Value Reference Range Interpretation Comments Potassium Lvl (test code = Potassium 4.9 3.5-5.1 Lvl) [facility]2022-06-28 04:12:00 Test Item Value Reference Range Interpretation Comments Chloride Lvl (test code = Chloride Lvl) 93 95-109 [facility]2022-06-28 04:12:00 Test Item Value Reference Range Interpretation Comments CO2 (test code = CO2) 31 24-32 [facility]2022-06-28 04:12:00 Test Item Value Reference Range Interpretation Comments Calcium Lvl (test code = Calcium Lvl) 9.1 8.5-10.5 [facility]2022-06-28 04:12:00 Test Item Value Reference Range Interpretation Comments Total Protein (test code = Total 6.8 6.4-8.4 Protein) [facility]2022-06-28 04:12:00 Test Item Value Reference Range Interpretation Comments Albumin Lvl (test code = Albumin Lvl) 2.5 3.5-5.0 [facility]2022-06-28 04:12:00 Test Item Value Reference Range Interpretation Comments ALT (test code = ALT) 51 See_Comment [Auto mated message] The system which ge nerated this result transmit swathi reference range : <=65. The reference range was not used to interpr et this result as deny l/abnormal. [facility] [id number] 04:12:00 Test Item Value Reference Range Interpretation Comments AST (test code = AST) 36 See_Comment [Auto mated message] The system which ge nerated this result transmit swathi reference range : <=37. The reference range was not used to interpr et this result as deny l/abnormal. [facility] [id number] 04:12:00 Test Item Value Reference Range Interpretation Comments Alk Phos (test code = Alk Phos) 383 39-136 [facility] [id number] 04:12:00 Test Item Value Reference Range Interpretation Comments Bili Total (test code = Bili Total) 1.1 0.2-1.3 [place] 412362-06-28 04:12:00 Test Item Value Reference Range Interpretation Comments AGAP (test code = AGAP) 13.9 10.0-20.0 [facility] [place] [id number] 04:12:00 Test Item Value Reference Range Interpretation Comments B/C Ratio (test code = B/C Ratio) 7 1 6-25 [place] 412362-06-28 04:12:00 Test Item Value Reference Range Interpretation Comments Globulin (test code = Globulin) 4.3 2.7-4.2 [facility] [address]QAQOA4753-80-75 04:12:00 Test Item Value Reference Range Interpretation Comments A/G Ratio (test code = A/G Ratio) 0.6 1 0.7-1.6 [place] 412362-06-28 04:12:00 Test Item Value Reference Range Interpretation Comments eGFR (test code = eGFR) 5 [place] 412362-06-28 04:12:00 Test Item Value Reference Range Interpretation Comments Procalcitonin Lvl (test 0.69 See_Comment [Au tomated message] code = Procalcitonin Lvl) Th e system which generated this result transmitted ref erence range: <=0.10. The reference range was not used to interpr et this result as normal/abnormal . [facility] HospitalZdfxsyjXUXBHPDDAO1523-19-17 04:12:00 Test Item Value Reference Range Interpretation Comments WBC (test code = WBC) 4.1 3.7-10.4 [place] 264282-06-28 04:12:00 Test Item Value Reference Range Interpretation Comments RBC (test code = RBC) 1.78 4.70-6.10 [place] 264282-06-28 04:12:00 Test Item Value Reference Range Interpretation Comments Hgb (test code = Hgb) 6.5 14.0-18.0 [place] 264282-06-28 04:12:00 Test Item Value Reference Range Interpretation Comments Hct (test code = Hct) 19.5 42.0-54.0 [place] 264282-06-28 04:12:00 Test Item Value Reference Range Interpretation Comments MCV (test code = MCV) 110.0 80.0-94.0 [place] 264282-06-28 04:12:00 Test Item Value Reference Range Interpretation Comments MCH (test code = MCH) 36.5 pg 27.0-31.0 [place] 264282-06-28 04:12:00 Test Item Value Reference Range Interpretation Comments MCHC (test code = MCHC) 33.2 32.0-36.0 [place] 264282-06-28 04:12:00 Test Item Value Reference Range Interpretation Comments RDW (test code = RDW) 19.0 11.5-14.5 [place] 264282-06-28 04:12:00 Test Item Value Reference Range Interpretation Comments Platelet (test code = Platelet) 180 133-450 [facility] HospitalNoqclgiHCGIOMUZAO9250-68-59 04:12:00 Test Item Value Reference Range Interpretation Comments MPV (test code = MPV) 8.3 7.4-10.4 [place] 264282-06-28 04:12:00 Test Item Value Reference Range Interpretation Comments PTT (test code = PTT) 45.4 s 22.9-35.8 [place] [address]-06-28 04:12:00 Test Item Value Reference Range Interpretation Comments PT (test code = PT) 19.1 s 12.0-14.7 [place] [address]-06-28 04:12:00 Test Item Value Reference Range Interpretation Comments INR (test code = INR) 1.62 1 0.85-1.17 ZuznowXqenlovMQWRMJAJZD4409-43-60 04:12:00 Test Item Value Reference Range Interpretation Comments RBC Morph (test code = See Note (11/24/21 RBC Morph) 11:12 PM) ZuznowQyxcpkdXYURYFFLOT2582-01-84 04:12:00 Test Item Value Reference Range Interpretation Comments Plt Morph (test code = Normal (11/24/21 11:12 Plt Morph) PM) ZuznowCowvxxwPWUSCQTKUY3985-54-31 04:12:00 Test Item Value Reference Range Interpretation Comments Segs (test code = Segs) 72.2 45.0-75.0 ZuznowUkmpdzjIIFQZHFREM0847-71-53 04:12:00 Test Item Value Reference Range Interpretation Comments Lymphocytes (test code = Lymphocytes) 16.2 20.0-40.0 Nu-B-2B XVWULTX4911-02-49 04:12:00 Test Item Value Reference Range Interpretation Comments ABO/Rh (test code = ABO/Rh) AB POS [facility] KFPBAUM2378-72-20 04:12:00 Test Item Value Reference Range Interpretation Comments Antibody Scrn (test Negative (11/24/21 code = Antibody Scrn) 11:12 PM) [facility]2022-06-28 04:12:00 Test Item Value Reference Range Interpretation Comments Total CK (test code = Total CK) 86 12-191 [facility]2022-06-28 04:12:00 Test Item Value Reference Range Interpretation Comments HS Troponin I (test code = HS Troponin 316 I) [facility]2022-06-28 04:12:00 Test Item Value Reference Range Interpretation Comments Glucose Lvl (test code = Glucose Lvl) 261 70-99 [facility]2022-06-28 04:12:00 Test Item Value Reference Range Interpretation Comments BUN (test code = BUN) 60 7-22 [facility]2022-06-28 04:12:00 Test Item Value Reference Range Interpretation Comments Creatinine Lvl (test code = Creatinine 8.49 0.50-1.40 Lvl) [facility]2022-06-28 04:12:00 Test Item Value Reference Range Interpretation Comments Sodium Lvl (test code = Sodium Lvl) 133 135-145 [facility]2022-06-28 04:12:00 Test Item Value Reference Range Interpretation Comments Potassium Lvl (test code = Potassium 4.9 3.5-5.1 Lvl) [place] [address]-06-28 04:12:00 Test Item Value Reference Range Interpretation Comments Chloride Lvl (test code = Chloride Lvl) 93 95-109 [facility]evilleVdltmwnSXYAQTQTGV3658-72-07 04:12:00 Test Item Value Reference Range Interpretation Comments Monocytes (test code = Monocytes) 8.0 2.0-12.0 [place] [address]-06-28 04:12:00 Test Item Value Reference Range Interpretation Comments CO2 (test code = CO2) 31 24-32 [place] 412362-06-28 04:12:00 Test Item Value Reference Range Interpretation Comments Calcium Lvl (test code = Calcium Lvl) 9.1 8.5-10.5 [place] 412362-06-28 04:12:00 Test Item Value Reference Range Interpretation Comments Total Protein (test code = Total 6.8 6.4-8.4 Protein) [place] 412362-06-28 04:12:00 Test Item Value Reference Range Interpretation Comments Albumin Lvl (test code = Albumin Lvl) 2.5 3.5-5.0 [place] 412362-06-28 04:12:00 Test Item Value Reference Range Interpretation Comments ALT (test code = ALT) 51 See_Comment [Auto mated message] The system which ge nerated this result transmit swathi reference range : <=65. The reference range was not used to interpr et this result as deny l/abnormal. [place] 412362-06-28 04:12:00 Test Item Value Reference Range Interpretation Comments AST (test code = AST) 36 See_Comment [Auto mated message] The system which ge nerated this result transmit swathi reference range : <=37. The reference range was not used to interpr et this result as deny l/abnormal. [place] 412362-06-28 04:12:00 Test Item Value Reference Range Interpretation Comments Alk Phos (test code = Alk Phos) 383 39-136 [place] 412362-06-28 04:12:00 Test Item Value Reference Range Interpretation Comments Bili Total (test code = Bili Total) 1.1 0.2-1.3 [place] 412362-06-28 04:12:00 Test Item Value Reference Range Interpretation Comments AGAP (test code = AGAP) 13.9 10.0-20.0 [place] 412362-06-28 04:12:00 Test Item Value Reference Range Interpretation Comments B/C Ratio (test code = B/C Ratio) 7 1 6-25 [place] 264282-06-28 04:12:00 Test Item Value Reference Range Interpretation Comments Eosinophils (test code = 2.7 See_Comment [A utomated message] The Eosinophils) system which ge nerated this result tra nsmitted reference range : <=4.0. The reference r samantha was not used to int erpret this result as normal/abnormal . [place] 412362-06-28 04:12:00 Test Item Value Reference Range Interpretation Comments Globulin (test code = Globulin) 4.3 2.7-4.2 [place] 412362-06-28 04:12:00 Test Item Value Reference Range Interpretation Comments A/G Ratio (test code = A/G Ratio) 0.6 1 0.7-1.6 [place] [address]-06-28 04:12:00 Test Item Value Reference Range Interpretation Comments eGFR (test code = eGFR) 5 [place] 412362-06-28 04:12:00 Test Item Value Reference Range Interpretation Comments Procalcitonin Lvl (test 0.69 See_Comment [Au tomated message] code = Procalcitonin Lvl) Th e system which generated this result transmitted ref erence range: <=0.10. The reference range was not used to interpr et this result as normal/abnormal . [place] 264282-06-28 04:12:00 Test Item Value Reference Range Interpretation Comments WBC (test code = WBC) 4.1 3.7-10.4 [place] [address]-06-28 04:12:00 Test Item Value Reference Range Interpretation Comments RBC (test code = RBC) 1.78 4.70-6.10 [place] [address]-06-28 04:12:00 Test Item Value Reference Range Interpretation Comments Hgb (test code = Hgb) 6.5 14.0-18.0 [place] 264282-06-28 04:12:00 Test Item Value Reference Range Interpretation Comments Hct (test code = Hct) 19.5 42.0-54.0 [place] 264282-06-28 04:12:00 Test Item Value Reference Range Interpretation Comments MCV (test code = MCV) 110.0 80.0-94.0 [place] 264282-06-28 04:12:00 Test Item Value Reference Range Interpretation Comments MCH (test code = MCH) 36.5 pg 27.0-31.0 [place] 264282-06-28 04:12:00 Test Item Value Reference Range Interpretation Comments Basophils (test code = 0.9 See_Comment [Aut omated message] The Basophils) system which ge nerated this result tra nsmitted reference range : <=1.0. The reference r samantha was not used to int erpret this result as normal/abnormal . [facility] HospitalZibwbgcHDSVEYEGWH6967-48-54 04:12:00 Test Item Value Reference Range Interpretation Comments MCHC (test code = MCHC) 33.2 32.0-36.0 [place] 264282-06-28 04:12:00 Test Item Value Reference Range Interpretation Comments RDW (test code = RDW) 19.0 11.5-14.5 [place] 264282-06-28 04:12:00 Test Item Value Reference Range Interpretation Comments Platelet (test code = Platelet) 180 133-450 [facility] HospitalIkqzhvlZVGQQURDWP9113-56-92 04:12:00 Test Item Value Reference Range Interpretation Comments MPV (test code = MPV) 8.3 7.4-10.4 [place] 264282-06-28 04:12:00 Test Item Value Reference Range Interpretation Comments PTT (test code = PTT) 45.4 s 22.9-35.8 [place] 264282-06-28 04:12:00 Test Item Value Reference Range Interpretation Comments PT (test code = PT) 19.1 s 12.0-14.7 [place] [address]-06-28 04:12:00 Test Item Value Reference Range Interpretation Comments INR (test code = INR) 1.62 1 0.85-1.17 [place] 264282-06-28 04:12:00 Test Item Value Reference Range Interpretation Comments RBC Morph (test code = See Note (11/24/21 RBC Morph) 11:12 PM) [facility] HospitalCbryyldMBSVIQMOQS4577-41-14 04:12:00 Test Item Value Reference Range Interpretation Comments Plt Morph (test code = Normal (11/24/21 11:12 Plt Morph) PM) [place] 264282-06-28 04:12:00 Test Item Value Reference Range Interpretation Comments Segs (test code = Segs) 72.2 45.0-75.0 [place] 264282-06-28 04:12:00 Test Item Value Reference Range Interpretation Comments Neutrophils # (test code = Neutrophils 2.9 1.5-8.1 #) [facility] HospitalVtjhnjlVIBYVHFMVF7920-12-29 04:12:00 Test Item Value Reference Range Interpretation Comments Lymphocytes (test code = Lymphocytes) 16.2 20.0-40.0 [place] 264282-06-28 04:12:00 Test Item Value Reference Range Interpretation Comments Monocytes (test code = Monocytes) 8.0 2.0-12.0 [facility] HospitalLmnjrosWGUUJDMGQJ9382-47-80 04:12:00 Test Item Value Reference Range Interpretation Comments Eosinophils (test code = 2.7 See_Comment [A utomated message] The Eosinophils) system which ge nerated this result tra nsmitted reference range : <=4.0. The reference r samantha was not used to int erpret this result as normal/abnormal . [facility] HospitalBkoxuxaXZAFRJVDWG8750-38-87 04:12:00 Test Item Value Reference Range Interpretation Comments Basophils (test code = 0.9 See_Comment [Aut omated message] The Basophils) system which ge nerated this result tra nsmitted reference range : <=1.0. The reference r samantha was not used to int erpret this result as normal/abnormal . [facility] HospitalSeblqbtXPQXIFSZLC9479-79-25 04:12:00 Test Item Value Reference Range Interpretation Comments Neutrophils # (test code = Neutrophils 2.9 1.5-8.1 #) [place] 264282-06-28 04:12:00 Test Item Value Reference Range Interpretation Comments Lymphocytes # (test code = Lymphocytes 0.7 1.0-5.5 #) [place] 264282-06-28 04:12:00 Test Item Value Reference Range Interpretation Comments Monocytes # (test code 0.3 See_Comment [Aut omated message] The = Monocytes #) system which generated this result tra nsmitted reference range : <=0.8. The reference r samantha was not used to int erpret this result as normal/abnormal . [facility]62 04:12:00 Test Item Value Reference Range Interpretation Comments Eosinophils # (test code 0.1 See_Comment [A utomated message] The = Eosinophils #) system [facility] generated this result tra nsmitted reference range : <=0.5. The reference r samantha was not used to int erpret this result as normal/abnormal . [place] 264282-06-28 04:12:00 Test Item Value Reference Range Interpretation Comments Anisocyte (test code = 1+ *ABN*(11/24/21 Anisocyte) 11:12 PM) [place] 264282-06-28 04:12:00 Test Item Value Reference Range Interpretation Comments Macrocyte (test code = 1+ *ABN*(11/24/21 Macrocyte) 11:12 PM) [place] 264282-06-28 04:12:00 Test Item Value Reference Range Interpretation Comments Lymphocytes # (test code = Lymphocytes 0.7 1.0-5.5 #) [place] 264282-06-28 04:12:00 Test Item Value Reference Range Interpretation Comments Microcyte (test code = 1+ *ABN*(11/24/21 Microcyte) 11:12 PM) [place] 264282-06-28 04:12:00 Test Item Value Reference Range Interpretation Comments Monocytes # (test code 0.3 See_Comment [Aut omated message] The = Monocytes #) system which generated this result tra nsmitted reference range : <=0.8. The reference r samantha was not used to int erpret this result as normal/abnormal . [facility] HospitalVgncgsxHXNWFULVOU7332-35-43 04:12:00 Test Item Value Reference Range Interpretation Comments Eosinophils # (test code 0.1 See_Comment [A utomated message] The = Eosinophils #) system [facility] generated this result tra nsmitted reference range : <=0.5. The reference r samantha was not used to int erpret this result as normal/abnormal . [facility] OzwimoxVCUNIAICQA5205-90-89 04:12:00 Test Item Value Reference Range Interpretation Comments Anisocyte (test code = 1+ *ABN*(11/24/21 Anisocyte) 11:12 PM) [facility]YR5679[facility]27-68 04:12:00 Test Item Value Reference Range Interpretation Comments Macrocyte (test code = 1+ *ABN*(11/24/21 Macrocyte) 11:12 PM) [facility]AsxbbrrXHZMEXVCEM3076-00-85 04:12:00 Test Item Value Reference Range Interpretation Comments Microcyte (test code = 1+ *ABN*(11/24/21 Microcyte) 11:12 PM) [facility] [employer] [id number] 04:12:00 Test Item Value Reference Range Interpretation Comments ABO/Rh (test code = ABO/Rh) AB POS [facility] [employer] [id number] 04:12:00 Test Item Value Reference Range Interpretation Comments Antibody Scrn (test Negative (11/24/21 code = Antibody Scrn) 11:12 PM) [facility] [employer] [id number] 04:12:00 Test Item Value Reference Range Interpretation Comments Total CK (test code = Total CK) 86 12-191 [facility] [employer] [id number] 04:12:00 Test Item Value Reference Range Interpretation Comments HS Troponin I (test code = HS Troponin 316 I) [facility] [employer]2022-06-28 04:12:00 Test Item Value Reference Range Interpretation Comments Glucose Lvl (test code = Glucose Lvl) 261 70-99 [facility] [employer]2022-06-28 04:12:00 Test Item Value Reference Range Interpretation Comments BUN (test code = BUN) 60 7-22 [facility] [employer]2022-06-28 04:12:00 Test Item Value Reference Range Interpretation Comments Creatinine Lvl (test code = Creatinine 8.49 0.50-1.40 Lvl) [facility] [employer]2022-06-28 04:12:00 Test Item Value Reference Range Interpretation Comments Sodium Lvl (test code = Sodium Lvl) 133 135-145 [facility] [employer]2022-06-28 04:12:00 Test Item Value Reference Range Interpretation Comments Potassium Lvl (test code = Potassium 4.9 3.5-5.1 Lvl) [place] 412362-06-28 04:12:00 Test Item Value Reference Range Interpretation Comments Chloride Lvl (test code = Chloride Lvl) 93 95-109 [place] 412362-06-28 04:12:00 Test Item Value Reference Range Interpretation Comments CO2 (test code = CO2) 31 24-32 [place] 412362-06-28 04:12:00 Test Item Value Reference Range Interpretation Comments Calcium Lvl (test code = Calcium Lvl) 9.1 8.5-10.5 [place] 412362-06-28 04:12:00 Test Item Value Reference Range Interpretation Comments Total Protein (test code = Total 6.8 6.4-8.4 Protein) [place] 412362-06-28 04:12:00 Test Item Value Reference Range Interpretation Comments Albumin Lvl (test code = Albumin Lvl) 2.5 3.5-5.0 [place] 412362-06-28 04:12:00 Test Item Value Reference Range Interpretation Comments ALT (test code = ALT) 51 See_Comment [Auto mated message] The system which ge nerated this result transmit swathi reference range : <=65. The reference range was not used to interpr et this result as deny l/abnormal. [place]362-06-28 04:12:00 Test Item Value Reference Range Interpretation Comments AST (test code = AST) 36 See_Comment [Auto mated message] The system which ge nerated this result transmit swathi reference range : <=37. The reference range was not used to interpr et this result as deny l/abnormal. [facility] [id number] 04:12:00 Test Item Value Reference Range Interpretation Comments Alk Phos (test code = Alk Phos) 383 39-136 [place] 412362-06-28 04:12:00 Test Item Value Reference Range Interpretation Comments Bili Total (test code = Bili Total) 1.1 0.2-1.3 [place] 412362-06-28 04:12:00 Test Item Value Reference Range Interpretation Comments AGAP (test code = AGAP) 13.9 10.0-20.0 [facility] [id number] 04:12:00 Test Item Value Reference Range Interpretation Comments B/C Ratio (test code = B/C Ratio) 7 1 6-25 [place] 412362-06-28 04:12:00 Test Item Value Reference Range Interpretation Comments Globulin (test code = Globulin) 4.3 2.7-4.2 [place] 412362-06-28 04:12:00 Test Item Value Reference Range Interpretation Comments A/G Ratio (test code = A/G Ratio) 0.6 1 0.7-1.6 [place] 412362-06-28 04:12:00 Test Item Value Reference Range Interpretation Comments eGFR (test code = eGFR) 5 [facility]2022-06-28 04:12:00 Test Item Value Reference Range Interpretation Comments Procalcitonin Lvl (test 0.69 See_Comment [Au tomated message] code = Procalcitonin Lvl) Th e system which generated this result transmitted ref erence range: <=0.10. The reference range was not used to interpr et this result as normal/abnormal . [facility] HospitalCunvmtlVQFCIMGTMW0885-83-81 04:12:00 Test Item Value Reference Range Interpretation Comments WBC (test code = WBC) 4.1 3.7-10.4 [place] 264282-06-28 04:12:00 Test Item Value Reference Range Interpretation Comments RBC (test code = RBC) 1.78 4.70-6.10 [place] 264282-06-28 04:12:00 Test Item Value Reference Range Interpretation Comments Hgb (test code = Hgb) 6.5 14.0-18.0 [place] 264282-06-28 04:12:00 Test Item Value Reference Range Interpretation Comments Hct (test code = Hct) 19.5 42.0-54.0 [place] 264282-06-28 04:12:00 Test Item Value Reference Range Interpretation Comments MCV (test code = MCV) 110.0 80.0-94.0 [place] 264282-06-28 04:12:00 Test Item Value Reference Range Interpretation Comments MCH (test code = MCH) 36.5 pg 27.0-31.0 [place] 264282-06-28 04:12:00 Test Item Value Reference Range Interpretation Comments MCHC (test code = MCHC) 33.2 32.0-36.0 [facility] HospitalMhsyrryYNVWSSNVFD3455-63-38 04:12:00 Test Item Value Reference Range Interpretation Comments RDW (test code = RDW) 19.0 11.5-14.5 [facility] HospitalHovdvjcVNTQCPXHUK9584-09-76 04:12:00 Test Item Value Reference Range Interpretation Comments Platelet (test code = Platelet) 180 133-450 [facility] HospitalYtoqljfJHNYFSMCQJ5970-13-96 04:12:00 Test Item Value Reference Range Interpretation Comments MPV (test code = MPV) 8.3 7.4-10.4 [facility] HospitalQqpbmcuERGBGHODNY4666-62-86 04:12:00 Test Item Value Reference Range Interpretation Comments PTT (test code = PTT) 45.4 s 22.9-35.8 [facility] HospitalFpweiqkKWUDMPSXVE3912-80-94 04:12:00 Test Item Value Reference Range Interpretation Comments PT (test code = PT) 19.1 s 12.0-14.7 [facility] HospitalSxofomzJHQJFQUIDV5123-34-28 04:12:00 Test Item Value Reference Range Interpretation Comments INR (test code = INR) 1.62 1 0.85-1.17 [facility] HospitalDzmsacsOLJPUFNCGT1214-81-77 04:12:00 Test Item Value Reference Range Interpretation Comments RBC Morph (test code = See Note (11/24/21 RBC Morph) 11:12 PM) [facility] HospitalKbjaftsGILULAQNVN1352-05-77 04:12:00 Test Item Value Reference Range Interpretation Comments Plt Morph (test code = Normal (11/24/21 11:12 Plt Morph) PM) [facility] HospitalVvfkmghWKKLXQKJRJ7892-42-16 04:12:00 Test Item Value Reference Range Interpretation Comments Segs (test code = Segs) 72.2 45.0-75.0 [facility] HospitalYakbcevYVWENLSQQQ6294-81-30 04:12:00 Test Item Value Reference Range Interpretation Comments Lymphocytes (test code = Lymphocytes) 16.2 20.0-40.0 [facility] HospitalNxleqyqJFEOOGSXMC8787-06-06 04:12:00 Test Item Value Reference Range Interpretation Comments Monocytes (test code = Monocytes) 8.0 2.0-12.0 [place] 264282-06-28 04:12:00 Test Item Value Reference Range Interpretation Comments Eosinophils (test code = 2.7 See_Comment [A utomated message] The Eosinophils) system which ge nerated this result tra nsmitted reference range : <=4.0. The reference r samantha was not used to int erpret this result as normal/abnormal . [facility] HospitalWqqdwgaPKBEVJHISJ1625-55-95 04:12:00 Test Item Value Reference Range Interpretation Comments Basophils (test code = 0.9 See_Comment [Aut omated message] The Basophils) system which ge nerated this result tra nsmitted reference range : <=1.0. The reference r samantha was not used to int erpret this result as normal/abnormal . [facility] HospitalMinjsglSBXNDKUTFR8833-93-52 04:12:00 Test Item Value Reference Range Interpretation Comments Neutrophils # (test code = Neutrophils 2.9 1.5-8.1 #) [facility] HospitalPoaymskNMJCPODLIC2018-46-46 04:12:00 Test Item Value Reference Range Interpretation Comments Lymphocytes # (test code = Lymphocytes 0.7 1.0-5.5 #) [facility] HospitalQyavrlpHCZTLTIWFR9692-44-57 04:12:00 Test Item Value Reference Range Interpretation Comments Monocytes # (test code 0.3 See_Comment [Aut omated message] The = Monocytes #) system which generated this result tra nsmitted reference range : <=0.8. The reference r samantha was not used to int erpret this result as normal/abnormal . [facility] HospitalXzizbosKWOHHMLCPL5115-75-24 04:12:00 Test Item Value Reference Range Interpretation Comments Eosinophils # (test code 0.1 See_Comment [A utomated message] The = Eosinophils #) system ic h generated this result tra nsmitted reference range : <=0.5. The reference r samantha was not used to int erpret this result as normal/abnormal . [facility] HospitalGvspuncDJRSUTONOX6503-05-38 04:12:00 Test Item Value Reference Range Interpretation Comments Anisocyte (test code = 1+ *ABN*(11/24/21 Anisocyte) 11:12 PM) [facility] HospitalSmamajsKUBNLZFWHG7435-06-81 04:12:00 Test Item Value Reference Range Interpretation Comments Macrocyte (test code = 1+ *ABN*(11/24/21 Macrocyte) 11:12 PM) [facility] HospitalGvrbggcZZSTIRLBUG3603-16-89 04:12:00 Test Item Value Reference Range Interpretation Comments Microcyte (test code = 1+ *ABN*(11/24/21 Microcyte) 11:12 PM) [facility] [employer] RLRHJOI8125-12-53 04:12:00 Test Item Value Reference Range Interpretation Comments ABO/Rh (test code = ABO/Rh) AB POS [facility] [employer] [id number] 04:12:00 Test Item Value Reference Range Interpretation Comments Antibody Scrn (test Negative (11/24/21 code = Antibody Scrn) 11:12 PM) [facility] [employer] [id number] 04:12:00 Test Item Value Reference Range Interpretation Comments Total CK (test code = Total CK) 86 12-191 [facility] [employer] [id number] 04:12:00 Test Item Value Reference Range Interpretation Comments HS Troponin I (test code = HS Troponin 316 I) [employer]2022-06-28 04:12:00 Test Item Value Reference Range Interpretation Comments Glucose Lvl (test code = Glucose Lvl) 261 70-99 [employer]2022-06-28 04:12:00 Test Item Value Reference Range Interpretation Comments BUN (test code = BUN) 60 7-22 [employer]2022-06-28 04:12:00 Test Item Value Reference Range Interpretation Comments Creatinine Lvl (test code = Creatinine 8.49 0.50-1.40 Lvl) [employer]2022-06-28 04:12:00 Test Item Value Reference Range Interpretation Comments Sodium Lvl (test code = Sodium Lvl) 133 135-145 [employer]2022-06-28 04:12:00 Test Item Value Reference Range Interpretation Comments Potassium Lvl (test code = Potassium 4.9 3.5-5.1 Lvl) [employer]2022-06-28 04:12:00 Test Item Value Reference Range Interpretation Comments Chloride Lvl (test code = Chloride Lvl) 93 95-109 [employer]2022-06-28 04:12:00 Test Item Value Reference Range Interpretation Comments CO2 (test code = CO2) 31 24-32 [employer]2022-06-28 04:12:00 Test Item Value Reference Range Interpretation Comments Calcium Lvl (test code = Calcium Lvl) 9.1 8.5-10.5 [employer]2022-06-28 04:12:00 Test Item Value Reference Range Interpretation Comments Total Protein (test code = Total 6.8 6.4-8.4 Protein) [place] 412362-06-28 04:12:00 Test Item Value Reference Range Interpretation Comments Albumin Lvl (test code = Albumin Lvl) 2.5 3.5-5.0 [place] 412362-06-28 04:12:00 Test Item Value Reference Range Interpretation Comments ALT (test code = ALT) 51 See_Comment [Auto mated message] The system which ge nerated this result transmit swathi reference range : <=65. The reference range was not used to interpr et this result as deny l/abnormal. [facility] [id number] 04:12:00 Test Item Value Reference Range Interpretation Comments AST (test code = AST) 36 See_Comment [Auto mated message] The system which ge nerated this result transmit swathi reference range : <=37. The reference range was not used to interpr et this result as deny l/abnormal. [facility] [id number] 04:12:00 Test Item Value Reference Range Interpretation Comments Alk Phos (test code = Alk Phos) 383 39-136 [facility] QVDVQ6418-47-99 04:12:00 Test Item Value Reference Range Interpretation Comments Bili Total (test code = Bili Total) 1.1 0.2-1.3 [facility] [id number] 04:12:00 Test Item Value Reference Range Interpretation Comments AGAP (test code = AGAP) 13.9 10.0-20.0 [facility] [id number] 04:12:00 Test Item Value Reference Range Interpretation Comments B/C Ratio (test code = B/C Ratio) 7 1 6-25 [facility] [id number] 04:12:00 Test Item Value Reference Range Interpretation Comments Globulin (test code = Globulin) 4.3 2.7-4.2 [facility] [id number] 04:12:00 Test Item Value Reference Range Interpretation Comments A/G Ratio (test code = A/G Ratio) 0.6 1 0.7-1.6 [facility] [id number] 04:12:00 Test Item Value Reference Range Interpretation Comments eGFR (test code = eGFR) 5 [facility]2022-06-28 04:12:00 Test Item Value Reference Range Interpretation Comments Procalcitonin Lvl (test 0.69 See_Comment [Au tomated message] code = Procalcitonin Lvl) Th e system which generated this result transmitted ref erence range: <=0.10. The reference range was not used to interpr et this result as normal/abnormal . [facility] HospitalSfyrqguKABFGZJRSZ2820-51-83 04:12:00 Test Item Value Reference Range Interpretation Comments WBC (test code = WBC) 4.1 3.7-10.4 [facility] HospitalLyqgchbMHRESCVOBZ7141-82-94 04:12:00 Test Item Value Reference Range Interpretation Comments RBC (test code = RBC) 1.78 4.70-6.10 [facility] HospitalHjlstceQSHCIFCPVM9874-48-67 04:12:00 Test Item Value Reference Range Interpretation Comments Hgb (test code = Hgb) 6.5 14.0-18.0 [facility] HospitalFqsbsdaIDNYCHNLHF1313-51-04 04:12:00 Test Item Value Reference Range Interpretation Comments Hct (test code = Hct) 19.5 42.0-54.0 [facility] HospitalZejtglsUAYEJOMCMG5579-71-41 04:12:00 Test Item Value Reference Range Interpretation Comments MCV (test code = MCV) 110.0 80.0-94.0 [facility] HospitalRjqsinoFOBZESMPXF7467-62-33 04:12:00 Test Item Value Reference Range Interpretation Comments MCH (test code = MCH) 36.5 pg 27.0-31.0 [facility] HospitalObpxlabIXHAMSEIMI4558-40-24 04:12:00 Test Item Value Reference Range Interpretation Comments MCHC (test code = MCHC) 33.2 32.0-36.0 [place] 264282-06-28 04:12:00 Test Item Value Reference Range Interpretation Comments RDW (test code = RDW) 19.0 11.5-14.5 [facility] HospitalQyfrcmzJZFJMSRKQP7231-59-34 04:12:00 Test Item Value Reference Range Interpretation Comments Platelet (test code = Platelet) 180 133-450 [facility] HospitalPaizekxUOURVSBEGN2124-51-93 04:12:00 Test Item Value Reference Range Interpretation Comments MPV (test code = MPV) 8.3 7.4-10.4 [facility] HospitalQbodpxgJIKIIPLLPR7670-42-14 04:12:00 Test Item Value Reference Range Interpretation Comments PTT (test code = PTT) 45.4 s 22.9-35.8 [place] 264282-06-28 04:12:00 Test Item Value Reference Range Interpretation Comments PT (test code = PT) 19.1 s 12.0-14.7 [place] 264282-06-28 04:12:00 Test Item Value Reference Range Interpretation Comments INR (test code = INR) 1.62 1 0.85-1.17 [place] 264282-06-28 04:12:00 Test Item Value Reference Range Interpretation Comments RBC Morph (test code = See Note (11/24/21 RBC Morph) 11:12 PM) [facility] HospitalEyjtxprQLOYECPIOA4328-88-30 04:12:00 Test Item Value Reference Range Interpretation Comments Plt Morph (test code = Normal (11/24/21 11:12 Plt Morph) PM) [place] 264282-06-28 04:12:00 Test Item Value Reference Range Interpretation Comments Segs (test code = Segs) 72.2 45.0-75.0 [place] 264282-06-28 04:12:00 Test Item Value Reference Range Interpretation Comments Lymphocytes (test code = Lymphocytes) 16.2 20.0-40.0 [place] 264282-06-28 04:12:00 Test Item Value Reference Range Interpretation Comments Monocytes (test code = Monocytes) 8.0 2.0-12.0 [place] 264282-06-28 04:12:00 Test Item Value Reference Range Interpretation Comments Eosinophils (test code = 2.7 See_Comment [A utomated message] The Eosinophils) system which ge nerated this result tra nsmitted reference range : <=4.0. The reference r samantha was not used to int erpret this result as normal/abnormal . [place] 264282-06-28 04:12:00 Test Item Value Reference Range Interpretation Comments Basophils (test code = 0.9 See_Comment [Aut omated message] The Basophils) system which ge nerated this result tra nsmitted reference range : <=1.0. The reference r samantha was not used to int erpret this result as normal/abnormal . [facility]LgydixiLGYGFIWQJP8163-56-87 04:12:00 Test Item Value Reference Range Interpretation Comments Neutrophils # (test code = Neutrophils 2.9 1.5-8.1 #) [facility]NubsdwqRSRATCVRTT3209-62-77 04:12:00 Test Item Value Reference Range Interpretation Comments Lymphocytes # (test code = Lymphocytes 0.7 1.0-5.5 #) [facility]JizxgdbTVYXIYJVOX5899-72-54 04:12:00 Test Item Value Reference Range Interpretation Comments Monocytes # (test code 0.3 See_Comment [Aut omated message] The = Monocytes #) system which generated this result tra nsmitted reference range : <=0.8. The reference r samantha was not used to int erpret this result as normal/abnormal . [facility]UjdrrjgZNSQHLORMY9175-05-28 04:12:00 Test Item Value Reference Range Interpretation Comments Eosinophils # (test code 0.1 See_Comment [A utomated message] The = Eosinophils #) system whic h generated this result tra nsmitted reference range : <=0.5. The reference r samantha was not used to int erpret this result as normal/abnormal . [facility] MichiganJpgpjvtOZUCRXMEQD6252-14-23 04:12:00 Test Item Value Reference Range Interpretation Comments Anisocyte (test code = 1+ *ABN*(11/24/21 Anisocyte) 11:12 PM) [facility] MichiganKxknqjeWDSJIKCFWC1136-10-89 04:12:00 Test Item Value Reference Range Interpretation Comments Macrocyte (test code = 1+ *ABN*(11/24/21 Macrocyte) 11:12 PM) [facility] MichiganMsclvonNQIGOGEQCI1354-72-42 04:12:00 Test Item Value Reference Range Interpretation Comments Microcyte (test code = 1+ *ABN*(11/24/21 Microcyte) 11:12 PM) [facility] [id number] 00:00:00 Test Item Value Reference Range Interpretation Comments A1C (test code = 4548-4) 8.8 HEMOGLOBIN [id number] 00:00:00 Test Item Value Reference Range Interpretation Comments A1C (test code = 4548-4) 8.3 HEMOGLOBIN [id number] 00:00:00 Test Item Value Reference Range Interpretation Comments A1C (test code = 4548-4) 10.3 Notes Date/Time Note Provider Source 2022-01-02 12:48:02-00:00 [facility] Chest Exam date and time: [...] Chester Kemp MD On 01/02/2022 13:11:40; VR-KBRYA [id number] 0290-08-05 12:48:02-00:00 [facility] Chest Exam date and time: [...] Chester Kemp MD On 01/02/2022 13:11:40; VR-KBRYA [id number] 4977-08-05 12:48:02-00:00 [facility]: [facility]R Chest Exam date and time: [...] Chester Kemp MD On 01/02/2022 13:11:40; [facility]-KBRYA [id number] 4317-08-05 12:48:02-00:00 PROCEDURE INFORMATION: [facility] Exam: XR Chest Exam date and time: [...] Chester Kemp MD On 01/02/2022 13:11:40; VR-KBRYA [id number] 1501-08-05 12:48:02-00:00 PROCEDURE INFORMATION: [facility] Exam: XR Chest Exam date and time: [...] Chester Kemp MD On 01/02/2022 13:11:40; VR-KBRYA [id number] 3976-08-05 12:48:02-00:00 [facility]: [facility]R Chest Exam date and time: [...] Chester Kemp MD On 01/02/2022 13:11:40; VR-KBRYA [id number] 0549-07-18 12:00:00-00:00 Radiation Dose CTDIVOL = 0 ( mGy): DLP = 1052.78 (mGy-cm) [facility] PROCEDURE INFORMATION: Exam: CTA Chest With Contrast Exam date and time: 12/15/2021 12:49 PM Age: 76 years old Clinical indication: /possible pe, positive for covid-19, respiratory infections and infla 12/14/21 TECHNIQUE: Imaging protocol: Computed tomographic a ngiography of the chest with contrast. 3D rendering (Not supervised by radiologist): NE P and/or 3D reconstructed images were created [...] Alexis Maloney MD On 12/15/2021 15:45:07; VR- [id number] 2021-12-15 12:00:00-00:00 Radiation Dose CTDIVOL = 0 ( mGy): DLP = 1052.78 (mGy-cm) [facility] PROCEDURE INFORMATION: Exam: CTA Chest With Contrast Exam date and time: 12/15/2021 12:49 PM Age: 76 years old Clinical indication: /possible pe, positive for covid-19, respiratory infections and infla 12/14/21 TECHNIQUE: Imaging protocol: Computed tomographic a ngiography of the chest with contrast. 3D rendering (Not supervised by radiologist): NE P and/or 3D reconstructed images were created [...] Alexis Maloney MD On 12/15/2021 15:45:07; VR- [id number] 2021-12-15 12:00:00-00:00 Radiation Dose CTDIVOL = 0 ( mGy): DLP = 1052.78 (mGy-cm) [facility] PROCEDURE INFORMATION: Exam: CTA Chest With Contrast Exam date and time: 12/15/2021 12:49 PM Age: 76 years old Clinical indication: /possible pe, positive for covid-19, respiratory infections and infla 12/14/21 TECHNIQUE: Imaging protocol: Computed tomographic a ngiography of the chest with contrast. 3D rendering (Not supervised by radiologist): NE P and/or 3D reconstructed images were created [...] Alexis Maloney MD On 12/15/2021 15:45:07; VR- [id number] 2021-12-15 12:00:00-00:00 Radiation Dose CTDIVOL = 0 ( mGy): DLP = 1052.78 (mGy-cm) [facility] PROCEDURE INFORMATION: Exam: CTA Chest With Contrast Exam date and time: 12/15/2021 12:49 PM Age: 76 years old Clinical indication: /possible pe, positive for covid-19, respiratory infections and infla 12/14/21 TECHNIQUE: Imaging protocol: Computed tomographic a ngiography of the chest with contrast. 3D rendering (Not supervised by radiologist): NE P and/or 3D reconstructed images were created [...] Alexis Maloney MD On 12/15/2021 15:45:07; VR- [id number] 2021-12-15 12:00:00-00:00 Radiation Dose CTDIVOL = 0 ( mGy): DLP = 1052.78 (mGy-cm) [facility] PROCEDURE INFORMATION: Exam: CTA Chest With Contrast Exam date and time: 12/15/2021 12:49 PM Age: 76 years old Clinical indication: /possible pe, positive for covid-19, respiratory infections and infla 12/14/21 TECHNIQUE: Imaging protocol: Computed tomographic a ngiography of the chest with contrast. 3D rendering (Not supervised by radiologist): NE P and/or 3D reconstructed images were created [...] Alexis Maloney MD On 12/15/2021 15:45:07; CARMELA- [id number] 2021-12-15 12:00:00-00:00 Radiation Dose CTDIVOL = 0 ( mGy): DLP = 1052.78 (mGy-cm) [facility] PROCEDURE INFORMATION: Exam: CTA Chest With Contrast Exam date and time: 12/15/2021 12:49 PM Age: 76 years old Clinical indication: /possible pe, positive for covid-19, respiratory infections and infla 12/14/21 TECHNIQUE: Imaging protocol: Computed tomographic a ngiography of the chest with contrast. 3D rendering (Not supervised by radiologist): NE P and/or 3D reconstructed images were created [...] Alexis Maloney MD On 12/15/2021 15:45:07; VR- [id number] 2021-12-14 15:50:31-00:00 PROCEDURE INFORMATION: [facility] Exam: XR Chest Exam date and time: [...] 16:21:28; SHARRI [id number] 2021-12-14 15:50:31-00:00 PROCEDURE INFORMATION: [facility] Exam: XR Chest Exam date and time: [...] Chester Back MD On 12/14/2021 16:21:28; SHARRI [id number] 2021-12-14 15:50:31-00:00 PROCEDURE INFORMATION: [facility] Exam: XR Chest Exam date and time: [...] 16:21:28; SHARRI [id number] 2021-12-14 15:50:31-00:00 PROCEDURE INFORMATION: [facility] Exam: XR Chest Exam date and time: [...] 16:21:28; SHARRI __[id number] 2021-12-14 15:50:31-00:00 PROCEDURE INFORMATION: [facility] Exam: XR Chest Exam date and time: [...] 16:21:28; SHARRI __[id number] 2021-12-14 15:50:31-00:00 PROCEDURE INFORMATION: [facility] Exam: XR Chest Exam date and time: [...] 16:21:28; SHARRI [id number] 2021-12-03 20:30:42-00:00 PROCEDURE INFORMATION: [facility] Exam: XR Chest Exam date and time: [...] Avtar Fortune MD On 12/03/2021 21:17:23; [id number] 2021-12-03 20:30:42-00:00 PROCEDURE INFORMATION: [facility] Exam: XR Chest Exam date and time: [...] Avtar Fortune MD On 12/03/2021 21:17:23; [id number] 2021-12-03 20:30:42-00:00 PROCEDURE INFORMATION: [facility] Exam: XR Chest Exam date and time: [...] Avtar Fortune MD On 12/03/2021 21:17:23; [id number] 2021-12-03 20:30:42-00:00 PROCEDURE INFORMATION: [facility] Exam: XR Chest Exam date and time: [...] Avtar Fortune MD On 12/03/2021 21:17:23; [id number] 2021-12-03 20:30:42-00:00 PROCEDURE INFORMATION: [facility] Exam: XR Chest Exam date and time: [...] Avtar Fortune MD On 12/03/2021 21:17:23; [id number] 2021-12-03 20:30:42-00:00 PROCEDURE INFORMATION: [facility] Exam: XR Chest Exam date and time: [...] Avtar Fortune MD On 12/03/2021 21:17:23; [id number] 2021-11-25 05:45:00-00:00 PROCEDURE INFORMATION: [facility] Exam: US Duplex Lower Extremity Veins, Bilateral [...] Cole Barnes MD On 11/25/2021 07:01:56; VR-GSYN [id number] 2021-11-25 05:45:00-00:00 PROCEDURE INFORMATION: [facility] Exam: US Abdomen, Limited; Right Upper Quadrant [...] Kit Pollard MD On 11/25/2021 07:54:47; VR [id number] 2021-11-25 05:45:00-00:00 PROCEDURE INFORMATION: [facility] Exam: US Duplex Lower Extremity Veins, Bilateral [...] Cole Barnes MD On 11/25/2021 07:01:56; VR-GSYN [id number] 2021-11-25 05:45:00-00:00 PROCEDURE INFORMATION: [facility] Exam: US Abdomen, Limited; Right Upper Quadrant [...] Kit Pollard MD On 11/25/2021 07:54:47; VR [id number] 2021-11-25 05:45:00-00:00 PROCEDURE INFORMATION: [facility] Exam: US Duplex Lower Extremity Veins, Bilateral [...] Cole Barnes MD On 11/25/2021 07:01:56; VR-GSYN [id number] 2021-11-25 05:45:00-00:00 PROCEDURE INFORMATION: [facility] Exam: US Abdomen, Limited; Right Upper Quadrant [...] Kit Pollard MD On 11/25/2021 07:54:47; VR [id number] 2021-11-25 05:45:00-00:00 PROCEDURE INFORMATION: [facility] Exam: US Duplex Lower Extremity Veins, Bilateral [...] Cole Barnes MD On 11/25/2021 07:01:56; VR-GSYN [id number] 2021-11-25 05:45:00-00:00 PROCEDURE INFORMATION: [facility] Exam: US Abdomen, Limited; Right Upper Quadrant [...] Kit Pollard MD On 11/25/2021 07:54:47; VR [id number] 2021-11-25 05:45:00-00:00 PROCEDURE INFORMATION: [facility] Exam: US Duplex Lower Extremity Veins, Bilateral [...] Cole Barnes MD On 11/25/2021 07:01:56; VR-GSYN [id number] 2021-11-25 05:45:00-00:00 PROCEDURE INFORMATION: [facility] Exam: US Abdomen, Limited; Right Upper Quadrant [...] Kit Pollard MD On 11/25/2021 07:54:47; VR [id number] 2021-11-25 05:45:00-00:00 PROCEDURE INFORMATION: [facility] Exam: US Duplex Lower Extremity Veins, Bilateral [...] Cole Barnes MD On 11/25/2021 07:01:56; VR-GSYN [id number] 2021-11-25 05:45:00-00:00 PROCEDURE INFORMATION: [facility] Exam: US Abdomen, Limited; Right Upper Quadrant [...] Kit Pollard MD On 11/25/2021 07:54:47; VR [id number] 2021-11-25 02:17:08-00:00 PROCEDURE INFORMATION: [facility] Exam: XR Right Foot Exam date and [...] Surendra Chavis MD On 11/25/2021 02:27:52; [id number] 2021-11-25 02:17:08-00:00 PROCEDURE INFORMATION: [facility] Exam: XR Right Foot Exam date and [...] Surendra Chavis MD On 11/25/2021 02:27:52; [id number] 2021-11-25 02:17:08-00:00 PROCEDURE INFORMATION: [facility] Exam: XR Right Foot Exam date and [...] Surendra Chavis MD On 11/25/2021 02:27:52; VR-[id number] 2021-11-25 02:17:08-00:00 PROCEDURE INFORMATION: [facility] Exam: XR Right Foot Exam date and [...] Surendra Chavis MD On 11/25/2021 02:27:52; [id number] 2021-11-25 02:17:08-00:00 PROCEDURE INFORMATION: [facility] Exam: XR Right Foot Exam date and [...] fracture. Surendra Chavis MD On 11/25/2021 02:27:52; [id number] 2021-11-25 02:17:08-00:00 PROCEDURE INFORMATION: [facility] Exam: XR Right Foot Exam date and [...] Surendra Chavis MD On 11/25/2021 02:27:52; [id number] 2021-11-24 23:56:05-00:00 Radiation Dose CTDIVOL = 0 ( mGy): DLP = 675.2 (mGy-cm) [facility] PROCEDURE INFORMATION: Exam: CT Abdomen And Pelvis [...] additional nonacute findings. COMMENTS: Consistent with the [employer] Incidental Findings [employer] [...] Surendra Chavis MD On 11/25/2021 00:47:46; [id number] 2021-11-24 23:56:05-00:00 Radiation Dose CTDIVOL = 0 ( mGy): DLP = 675.2 (mGy-cm) [facility] PROCEDURE INFORMATION: Exam: CT Abdomen And Pelvis [...] additional nonacute findings. COMMENTS: Consistent with the [employer] Incidental Findings Committee [...] Surendra Chavis MD On 11/25/2021 00:47:46; [id number] 2021-11-24 23:56:05-00:00 Radiation Dose CTDIVOL = 0 ( mGy): DLP = 675.2 (mGy-cm) [facility] PROCEDURE INFORMATION: Exam: CT Abdomen And Pelvis [...] additional nonacute findings. COMMENTS: Consistent with the [employer] Incidental Findings Committee [...] Surendra Chavis MD On 11/25/2021 00:47:46; [id number] 2021-11-24 23:56:05-00:00 Radiation Dose CTDIVOL = 0 ( mGy): DLP = 675.2 (mGy-cm) [facility] PROCEDURE INFORMATION: Exam: CT Abdomen And Pelvis [...] additional nonacute findings. COMMENTS: Consistent with the [employer] Incidental Findings Committee [...] Surendra Chavis MD On 11/25/2021 00:47:46; [id number] 2021-11-24 23:56:05-00:00 Radiation Dose CTDIVOL = 0 ( mGy): DLP = 675.2 (mGy-cm) [facility] PROCEDURE INFORMATION: Exam: CT Abdomen And Pelvis [...] additional nonacute findings. COMMENTS: Consistent with the [employer] Incidental Findings Committee [...] Surendra Chavis MD On 11/25/2021 00:47:46; [id number] 2021-11-24 23:56:05-00:00 Radiation Dose CTDIVOL = 0 ( mGy): DLP = 675.2 (mGy-cm) [facility] PROCEDURE INFORMATION: Exam: CT Abdomen And Pelvis [...] additional nonacute findings. COMMENTS: Consistent with the [employer] Incidental Findings Committee [...] Surendra Chavis MD On 11/25/2021 00:47:46; VR-[id number] 2021-11-24 22:50:28-00:00 PROCEDURE INFORMATION: [facility] Exam: XR Chest Exam date and time: [...] Surendra Chavis MD On 11/24/2021 22:53:49; CARMELA-[id number] 2021-11-24 22:50:28-00:00 PROCEDURE INFORMATION: [facility] Exam: XR Chest Exam date and time: [...] Surendra Chavis MD On 11/24/2021 22:53:49; VR-[id number] 2021-11-24 22:50:28-00:00 PROCEDURE INFORMATION: [facility] Exam: XR Chest Exam date and time: [...] Cardiomegaly. Surendra Chavis MD On 11/24/2021 22:53:49; THIERNO [id number] 8082-06-27 22:50:28-00:00 PROCEDURE INFORMATION: [facility] Exam: XR Chest Exam date and time: [...] Cardiomegaly. Surendra Chavis MD On 11/24/2021 22:53:49; [id number] 2021-11-24 22:50:-00:00 PROCEDURE INFORMATION: [facility] Exam: XR Chest Exam date and time: [...] Cardiomegaly. Surendra Chavis MD On 11/24/2021 22:53:49; [id number] 2021-11-24 22:50:28-00:00 PROCEDURE INFORMATION: [facility] Exam: XR Chest Exam date and time: [...] Surendra Chavis MD On 11/24/2021 22:53:49; [id number]
[2023-01-06 16:54] LABS: Protime INR 1.53
[2023-01-06 16:57] LABS: Absolute Lymphocytes (CBC) 0.7 K/uL (0.7-4.9); Hematocrit 21.4 % (39.6-49.0); Lymphocytes % 17.7 % (15.3-44.8); MCV 84.7 fL (80-100); MPV 7.4 fL (7.6-11.3); Platelets 154 thou/uL (152-406); RBC Red Blood Cell Count 2.52 M/uL (4.33-5.43)
[2023-01-06 17:14] LABS: Potassium 3.1 mEq/L (3.5-5.1)
[2023-01-06] MEDS ORDERED: NA CHLORIDE 0.9% 500 ML ONE (18:36)
--- NOTE | 2023-01-07 00:22 | EDPHYS ---
Physician Documentation [facility] Name: Guzman Mayers Age: 77 yrs Sex: Male : 1945 Arrival Date: 01/06/2023 Time: 16:02 Bed 14 Private MD: ED Physician Hilda Fortune HPI: 01/06 16:30 This 77 yrs old Male presents to ER via Wheelchair with complaints of Abnormal cp Lab Results. 16:30 Patient is a 77-year-old male with past medical history significant for congestive cp heart failure, chronic kidney disease in which she receives dialysis, anemia and hyperlipidemia. Patient reports having dialysis today and having his hemoglobin checked with a return value of 7.4. Patient reports general weakness and so he was sent to the emergency room for blood transfusion. Historical: - Allergies: 16:17 Codeine; cm10 16:17 GABAPENTIN; cm10 - PMHx: 16:17 ADD/ADHD; blood transfusion; CHF; CKD; Dialysis; MWF; High Cholesterol; Diabetes - cm10 IDDM; Hypertension; COPD; HTN; - PSHx: 16:17 L arm dialysis access; cm10 - Immunization history:: Adult Immunizations. - Social history:: Smoking status: Patient denies any tobacco usage or history of. ROS: 16:35 Constitutional: Negative for body aches, chills, fever, poor PO intake. cp 16:35 Eyes: Negative for injury, pain, redness, and discharge. cp 16:35 Cardiovascular: Negative for chest pain. 16:35 Respiratory: Negative for cough, shortness of breath, wheezing. 16:35 Abdomen/GI: Negative for abdominal pain, nausea, vomiting, and diarrhea. 16:35 Neuro: Positive for weakness, Negative for altered mental status, headache, syncope. 16:35 All other systems are negative. Exam: 16:40 Constitutional: The patient appears in no acute distress, alert, awake, non-toxic, well cp developed, well nourished. 16:40 Head/Face: Normocephalic, atraumatic. cp 16:40 Eyes: Periorbital structures: appear normal, Conjunctiva: normal, no exudate, no injection, Sclera: no appreciated abnormality, Lids and lashes: appear normal, bilaterally. 16:40 ENT: External ear(s): are unremarkable, Nose: is normal, Mouth: Lips: moist, Oral mucosa: pink and intact, moist, Posterior pharynx: is normal, airway is patent, no erythema, no exudate. 16:40 Chest/axilla: Inspection: normal. 16:40 Cardiovascular: Rate: normal. 16:40 Respiratory: the patient does not display signs of respiratory distress, Respirations: normal, no use of accessory muscles, no retractions. 16:40 Abdomen/GI: Inspection: abdomen appears normal, Palpation: abdomen is soft and non-tender, in all quadrants. 16:40 Neuro: Orientation: to person, place \T\ time. Mentation: is normal, Motor: moves all fours, strength is normal. Vital Signs: 16:15 BP 138 / 114; Pulse 77; Resp 18; Temp 97.9; Pulse Ox 100% on R/A; Weight 71.67 kg; cm10 Height 5 ft. 10 in. ; Pain 4/10; 16:48 Pulse 64; Resp 18; Pulse Ox 100% on R/A; mb9 16:51 BP 137 / 50; mb9 17:51 BP 124 / 60; Pulse 66; Resp 18; Pulse Ox 94% on R/A; ld1 18:55 BP 120 / 57; Pulse 62; Resp 18; Pulse Ox 97% on 3 lpm NC; ld1 19:12 BP 117 / 51; Pulse 57; Resp 15; Temp 97.44; Pulse Ox 100% on 3 lpm NC; mb9 20:30 BP 141 / 56; Pulse 57; Resp 18; Pulse Ox 100% on 3 lpm NC; mb9 21:35 BP 122 / 61; Pulse 57; Resp 18; Pulse Ox 100% on 2 lpm NC; mb9 22:29 BP 129 / 58; Pulse 57; Resp 18; Temp 98; Pulse Ox 100% on 2 lpm NC; mb9 23:20 BP 138 / 64; Pulse 60; Resp 15; Pulse Ox 100% on 2 lpm NC; mb9 08 00:42 BP 134 / 62; Pulse 57; Resp 17; Pulse Ox 99% ; ll3 01/06 16:15 Body Mass Index 22.67 (71.67 kg, 177.8 cm) cm10 01/06 16:15 Pain Scale: Adult cm10 01/06 19:12 baseline for 1st unit of RBC mb9 22:29 Baseline for 2nd unit of RBC transfusion mb9 MDM: 16:22 Patient medically screened. cp 17:00 Differential diagnosis: sepsis, anemia. cp 01/07 00:21 Data reviewed: vital signs, nurses notes, lab test result(s), and as a result, I will cp discharge patient. 00:21 ED course: Vital signs stable. Patient reports symptoms improved. Will discharge to cp home for continued monitoring. 01/06 16:25 Order name: CBC with Diff; Complete Time: 17:26 cp 01/06 17:26 Interpretation: Normal except: WBC 4.20; RBC 2.52; HGB 7.2; HCT 21.4; MPV 7.4. cp 01/06 16:25 Order name: BMP; Complete Time: 17:26 cp 01/06 17:26 Interpretation: Normal except: NA 134; K 3.1; GLUC 198; CRE 2.15; GFR 31. cp 01/06 16:25 Order name: PT-INR; Complete Time: 17:26 cp 01/06 16:25 Order name: Type And Screen cp 01/06 17:37 Order name: Bb Add On bd 01/06 17:52 Order name: Packed RBCs (Additional Unit) EDIA 01/06 16:25 Order name: IV; Complete Time: 16:38 cp 01/06 20:08 Order name: Transfuse; Complete Time: 20:11 cp Administered Medications: No medications were administered Disposition Summary: 01/07/23 00:22 Discharge Ordered Location: Home cp Problem: chronic cp Symptoms: have improved cp Condition: Stable cp Diagnosis - Anemia in other chronic diseases classified elsewhere cp Followup: cp - With: Private Physician - When: 2 - 3 days - Reason: Recheck today's complaints Discharge Instructions: - Discharge Summary Sheet cp - Anemia cp - Blood Transfusion, Adult cp Forms: - Medication Reconciliation Form cp - Thank You Letter cp - Antibiotic Education cp - Prescription Opioid Use cp - Patient Portal Instructions cp Signatures: Dispatcher [employer] EDIA Anderson Feldman PA PA cp Martinez, Clarissa, RN RN cm10
--- NOTE | 2023-01-07 00:22 | ER ---
Nurse's Notes [facility] Name: Guzman Mayers Age: 77 yrs Sex: Male : 1945 Arrival Date: 01/06/2023 Time: 16:02 Bed 14 Private MD: Diagnosis: Anemia in other chronic diseases classified elsewhere Presentation: 01/06 16:15 Chief complaint: Patient states: sent over from dialysis for blood transfusion. HGB cm10 7.4. Coronavirus screen: Vaccine status: Patient reports receiving the 2nd dose of the covid vaccine. Ebola Screen: Patient denies travel to an Ebola-affected area in the 21 days before illness onset. No symptoms or risks identified at this time. Initial Sepsis Screen: Does the patient meet any 2 criteria? No. Patient's initial sepsis screen is negative. Does the patient have a suspected source of infection? No. Patient's initial sepsis screen is negative. Risk Assessment: Do you want to hurt yourself or someone else? Patient reports no desire to harm self or others. Onset of symptoms was January 06, 2023. 16:15 Method Of Arrival: Wheelchair cm10 16:15 Acuity: CHICHO 3 cm10 Historical: - Allergies: 16:17 Codeine; cm10 16:17 GABAPENTIN; cm10 - PMHx: 16:17 ADD/ADHD; blood transfusion; CHF; CKD; Dialysis; MWF; High Cholesterol; Diabetes - cm10 IDDM; Hypertension; COPD; HTN; - PSHx: 16:17 L arm dialysis access; cm10 - Immunization history:: Adult Immunizations. - Social history:: Smoking status: Patient denies any tobacco usage or history of. Screenin:48 [facility] ED Fall Risk Assessment (Adult) History of falling in the last 3 months, mb9 including since admission No falls in past 3 months (0 pts). Abuse screen: Denies threats or abuse. Denies injuries from another. Nutritional screening: No deficits noted. Tuberculosis screening: No symptoms or risk factors identified. Assessment: 16:48 General: Appears in no apparent distress. comfortable, Behavior is calm, cooperative, mb9 appropriate for age. Pain: Denies pain. Neuro: Level of Consciousness is awake, alert, obeys commands, Oriented to person, place, time, situation. Cardiovascular: Capillary refill < 3 seconds Patient's skin is warm and dry. Rhythm is sinus rhythm. Respiratory: Airway is patent Respiratory effort is even, unlabored. GI: Abdomen is round non-distended. : No signs and/or symptoms were reported regarding the genitourinary system. EENT: No signs and/or symptoms were reported regarding the EENT system. Derm: No signs and/or symptoms reported regarding the dermatologic system. Musculoskeletal: No signs and/or symptoms reported regarding the musculoskeletal system. 18:55 Reassessment: Patient appears in no apparent distress at this time. No changes from ld1 previously documented assessment. Patient and/or family updated on plan of care and expected duration. Pain level reassessed. 19:12 Reassessment: initiated first unit of RBCs. See Blood transfusion record sheet for more mb9 information. 20:30 Reassessment: No changes from previously documented assessment. Patient and/or family mb9 updated on plan of care and expected duration. Pain level reassessed. Patient is alert, oriented x 3, equal unlabored respirations, skin warm/dry/pink. 21:30 Reassessment: No changes from previously documented assessment. Patient and/or family mb9 updated on plan of care and expected duration. Pain level reassessed. Patient is alert, oriented x 3, equal unlabored respirations, skin warm/dry/pink. 22:29 Reassessment: initiated 2nd unit of RBCs. See blood transfusion record sheet for more mb9 information. 22:30 Reassessment: No changes from previously documented assessment. Patient and/or family mb9 updated on plan of care and expected duration. Pain level reassessed. Patient is alert, oriented x 3, equal unlabored respirations, skin warm/dry/pink. Vital Signs: 16:15 BP 138 / 114; Pulse 77; Resp 18; Temp 97.9; Pulse Ox 100% on R/A; Weight 71.67 kg; cm10 Height 5 ft. 10 in. ; Pain 4/10; 16:48 Pulse 64; Resp 18; Pulse Ox 100% on R/A; mb9 16:51 BP 137 / 50; mb9 17:51 BP 124 / 60; Pulse 66; Resp 18; Pulse Ox 94% on R/A; ld1 18:55 BP 120 / 57; Pulse 62; Resp 18; Pulse Ox 97% on 3 lpm NC; ld1 19:12 BP 117 / 51; Pulse 57; Resp 15; Temp 97.44; Pulse Ox 100% on 3 lpm NC; mb9 20:30 BP 141 / 56; Pulse 57; Resp 18; Pulse Ox 100% on 3 lpm NC; mb9 21:35 BP 122 / 61; Pulse 57; Resp 18; Pulse Ox 100% on 2 lpm NC; mb9 22:29 BP 129 / 58; Pulse 57; Resp 18; Temp 98; Pulse Ox 100% on 2 lpm NC; mb9 23:20 BP 138 / 64; Pulse 60; Resp 15; Pulse Ox 100% on 2 lpm NC; mb9 01/07 00:42 BP 134 / 62; Pulse 57; Resp 17; Pulse Ox 99% ; ll3 01/06 16:15 Body Mass Index 22.67 (71.67 kg, 177.8 cm) cm10 01/06 16:15 Pain Scale: Adult cm10 01/06 19:12 baseline for 1st unit of RBC mb9 22:29 Baseline for 2nd unit of RBC transfusion mb9 ED Course: 16:05 Patient arrived in ED. im 16:15 Anderson Feldman PA is PHCP. cp 16:15 Hilda Fortune MD is Attending Physician. cp 16:16 Triage completed. cm10 16:17 Arm band placed on Patient placed in waiting room. cm10 16:38 Kelly Herron RN is Primary Nurse. mb9 16:38 Type And Screen Sent. mb9 16:38 PT-INR Sent. mb9 16:38 BMP Sent. mb9 16:38 CBC with Diff Sent. mb9 16:41 Inserted saline lock: 20 gauge in right antecubital area, using aseptic technique. bc6 Blood collected. 16:48 Patient has correct armband on for positive identification. Placed in gown. Bed in low mb9 position. Call light in reach. Side rails up X2. commissioned fire officer on. Pulse ox on. NIBP on. Door closed. Noise minimized. Warm blanket given. 16:48 No provider procedures requiring assistance completed. mb9 19:06 Report received from GILSON Willard. mb9 23:57 Report given to GILSON Cortes. mb9 01/07 00:42 IV discontinued, intact, bleeding controlled, No redness/swelling at site. Pressure ll3 dressing applied. Administered Medications: No medications were administered Medication: 01/06 22:02 VIS not applicable for this client. mb9 Outcome: 01/07 00:22 Discharge ordered by . cp 00:42 Discharged to home via wheelchair, with family. ll3 00:42 Condition: stable 00:42 Discharge instructions given to patient, family, Instructed on discharge instructions, follow up and referral plans. Demonstrated understanding of instructions, follow-up care. 00:43 Patient left the ED. ll3 Signatures: Anderson Feldman PA PA cp Sims, Lauren RN RN ld1 Hu Cortez RN RN ll3 Kelly Herron RN RN mb9 Toña Stark6 Sybil Ziegler Clarissa RN RN cm10
[2023-01-07 01:36] VITALS: O2SAT 100
[2023-01-07 01:49] VITALS: TEMP 98
[2023-01-07 01:51] VITALS: BP 138/64
== END 2023-01-07 00:43 | disposition home or self-care (01) ==
LOC: ER 16:02
PROC: 30233N1 Transfusion of Nonautologous Red Blood Cells into Peripheral Vein, Percutaneous Approach (ICD-10-PCS; principal; 2023-01-07)
DX: E11.22 Type 2 diabetes mellitus with diabetic chronic kidney disease (principal); I12.0 Hypertensive chronic kidney disease with stage 5 chronic kidney disease or end stage renal disease; N18.6 End stage renal disease; Z99.2 Dependence on renal dialysis; D63.1 Anemia in chronic kidney disease; Z88.5 Allergy status to narcotic agent; Z88.8 Allergy status to other drugs, medicaments and biological substances
CPT/HCPCS: 85025; 80048; 36415; 86900; 86850; 85610; 86901; 86920 ×2; 99284; 36430; P9016 ×2; J7050

== ENCOUNTER 2023-01-22 15:52 | Observation (INO) | payer OTHER, BC ==
--- OUTSIDE RECORDS SUMMARY | 2023-01-22 16:37 | XMS REPORT | Continuity of Care Document ---
:1945 Author Organization [facility] t Address [address] [facility]. [address] [place] [address] Care Team Providers Name Role Phone LA FORTUNE Primary Care Physician Unavailable La Fortune Attending Clinician Unavailable [id number] Attending Clinician Unavailable RONNIE AYALA Attending Clinician Unavailable Ronnie Mendoza Attending Clinician Ubaldo Davis RN Attending Clinician Unavailable MARIANNA BARBOUR Attending Clinician Unavailable Fabian Fernandes MD Attending Clinician Mine Mosqueda DO Attending Clinician Marianna Barbour MD Attending Clinician CAREY LONG Attending Clinician Unavailable Carey Long Attending Clinician ZACHARY BRUNO Attending Clinician Unavailable Zachary Bruno Attending Clinician Monse Velazquez Attending Clinician [phone] Pepper Crawford Attending Clinician PEPPER CRAWFORD Attending Clinician Unavailable MONSE VELAZQUEZ Attending Clinician Unavailable CHILANGO ARMSTRONG NATASHA Attending Clinician Unavailable [id number] Admitting Clinician Unavailable RONNIE AYALA Admitting Clinician Unavailable MINE MOSQUEDA Admitting Clinician Unavailable Mine Mosqueda DO Admitting Clinician ZACHARY BRUNO Admitting Clinician Unavailable Zachary Bruno Admitting Clinician Monse Velazquez Admitting Clinician [phone] MONSE VELAZQUEZ Admitting Clinician Unavailable CHILANGO ARMSTRONG NATASHA Admitting Clinician Unavailable Payers Payer Name Policy Type Policy Effective Date Expiration Date Sour ce Number MEDICARE PART A [id number] 2011 AND B 00:00:00 MEDICARE PART A [id number] 2010 \\T\\ B 00:00:00 BCBS TRADITIONAL [id number] 2014 00:00:00 Blue [employer] Blue 6 [id number] 2014 [facility] 00:00:00 - [facility] [id number] BCTX BCTI [id number] MEDICARE NOVITAS [id number] 2011 [facility] 00:00:00 - [facility] MEDICARE NOVITAS [id number] 2011 [facility] 00:00:00 - [facility] MEDICARE NOVITAS [id number] 2011 [facility] 00:00:00 [facility] Problems Condition Condition Condition Status Onset Resolution Last Treating Co mments Source Name Details Category Date Date Treatment Clinician Date E46 E46 Disease Active Univers Unspecifie Unspecifie 5-16 it y of d severe d severe 00:00: [place] protein-ca protein-ca 00 Me dical ajay ajay Branch malnutriti malnutriti on on Elevated Elevated Disease Active Unive rs troponin I troponin I 5-14 it y of level level 00:00: [place] 00 Medical Branch Elevated Elevated Disease Active [...] 5-14 it y of on on 00:00: [place] [facility] Branch Syncope Syncope Disease Active Univers 5-14 ity of 00:00: [place] [address] Medical Branch Anemia Anemia Disease Active Univers associated associated 5-14 it y of with with 00:00: [place] nutritiona nutritiona 00 Me dical l Branch deficiency deficiency Dyslipidem Dyslipidem Disease Active U nivers ia ia 5-14 ity of 00:00: [place] [facility] Bifascicul Bifascicul Disease Active U nivers ar block ar block 5-14 ity of 00:00: [place] [facility] Atrial Atrial Disease Active Univers flutter flutter 5-14 ity of 00:00: [place] [facility] Branch Encephalop Encephalop Disease Active U nivers athy athy 5-14 ity of 00:00: [place] [facility] Hypoglycem Hypoglycem Disease Active U nivers ia ia 5-13 ity of 00:00: [place] [address] Medical Branch LOW LOW Diagnosis Active 2022-01-02 Mem oria HEMOGLOBIN HEMOGLOBIN 01-02 12:51:00 l COUNT/ COUNT/ 00:00: [place] NEEDING NEEDING 00 DIALYZED DIALYZED Active 01/02/2022 [facility] PNA DUE TO PNA DUE Diagnosis Active 2022-08-31 Memoria COVID-19 TO 12-14 21:48:00 l VIRUS COVID-19 00:00: [place] VIRUS 00 Active 12/14/2021 [facility] [place] DIFFICULTY Diagnosis Active 2021-12-14 Memoria BREATHING DIFFICULTY 12-14 17:56:00 l BREATHING 00:00: [place] Active 00 12/14/[facility] ABNORNAL ABNORNAL Diagnosis Active 2021-12-16 Memoria LAB LAB Active 12-03 05:50:00 l 08:00: Thomas n [address] [place] [address] [place] ANEMIA, ANEMIA, Diagnosis Active 2021-12-16 Memoria COVID-19 COVID-19 11-24 05:50:00 l Active 00:00: [place] 11/24/2021 [facility] [place] LOW LOW Diagnosis Active 2021-11-24 Mem oria HEMOGOBLIN HEMOGOBLIN 11-24 23:20:00 l Active 00:00: [place] 11/24/2021 [facility] Cellulitis Cellulitis Disease Active U nivers of right of right 12-29 ity of leg leg 00:00: [address] [id number] Other Problem Common obesity Spirit due to - [facility] excess [facility] [id number] Metabolic Problem Com mon syndrome Spirit - 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 [id number] GERD Problem Common without Spirit esophagiti - CHI s [facility] [id number] Type 2 Problem Common diabetes Spirit mellitus - CHI with [facility] [id number] Mixed Problem Common hyperlipid Spirit emia - [facility] [id number] Noncomplia Problem Co mmon nce of Spirit patient - CHI with [facility] Chronic Chronic Problem Common atrial atrial Spirit fibrillati fibrillati - CHI on on 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 Primary Primary Problem Common insomnia insomnia Spirit - 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 [id number] Compressio Problem Co mmon n fracture Spirit of L1 - CHI vertebra with [facility] delayed Medical healing, Center subsequent encounter [id number] Constipati Problem Com mon on, Spirit unspecifie - CHI d constipati [facility] [id number] Memory Problem Common impairment Spirit of gradual - CHI onset [facility] [id number] HTN, goal Problem Comm on below Spirit 130/80 - [facility] [id number] Anemia of Problem Com mon chronic Spirit disease - [facility] [id number] half-way Problem Com mon (current) Spirit use of - CHI insulin 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 Hypertensi Hypertensi Problem C ommon ve heart ve chronic Spir it AND kidney - CHI chronic disease St kidney with stage [facility] disease 5 chronic Medica l [...] [place] 12/04/2021 00 12/06/2021 [facility] Allergies, Adverse Reactions, Alerts Allergy Allergy Status Severity Reaction(s) Onset Inactive Treating Comm ents Source Name Type Date Date Clinician Gabapent Propensi Active Unknown - Uni vers in ty to See comments - ity of adverse 00:00: [place] reaction 00 Medical s Branch Hydrocod Propensi Active Unknown - Uni vers one ty to See comments - ity of adverse 00:00: [place] reaction 00 Medical s Branch GABAPENT DRUG Active Unknown-Cmnt Un arnie IN INGREDI 10-10 ity of 00:00: [place] 00 Medical Branch HYDROCOD DRUG Active Unknown-Cmnt Un arnie ONE INGREDI 10-10 ity of 00:00: [place] 00 Medical Branch Codeine Propensi Active Hallucinatio 2014- U nivers ty to ns 12-29 ity of adverse 00:00: [place] reaction 00 Medical s Branch CODEINE DRUG Active Med Hallucinates Uni vers INGREDI 12-29 ity of 00:00: [place] 00 Medical Branch gabapent gabapent Active Unknown Commo n in in Spirit [facility] codeine codeine Active Unknown [facility] codeine codeine Active Memoria l [place] gabapent gabapent Active Memori a in in l [place] Social History Social Habit Start Date Stop Date Quantity Comments Source History of tobacco Cigarette Smoker University of use [place] [facility] History SDOH University o f Alcohol Std Drinks [place] [facility] History SDOH University o f Alcohol Binge [place] [facility] al [facility] History SDOH Social Unive rsity of [facility] Med ical Together Branch History SDOH Social Unive rsity of [facility] Medical Branch History SDOH Social Unive rsity of [facility] Medical Membership Branch History SDOH Social Unive rsity of [facility] Meetings Branch Alcohol intake 2022-10-31 2022-10-31 Ex-drinker University of 00:00:00 00:00:00 (finding) [place] [facility] History SDOH 2022-10-12 2022-10-12 1 University o f Alcohol Frequency 00:00:00 00:00:00 [place] M edical Branch History SDOH Social 2022-10-12 2022-10-12 5 Unive rsity of Connections Phone 00:00:00 00:00:00 [place] M edical Branch History SDOH Social 2022-10-12 2022-10-12 [...] 1 Univers ity of Worry 00:00:00 00:00:00 [place] [facility] History SDOH Food 2022-10-12 2022-10-12 1 Univers ity of Scarcity 00:00:00 00:00:00 [place] [facility] History SDOH 2022-10-12 2022-10-12 2 University o f Transport Med 00:00:00 00:00:00 [place] Medic al Branch History SDOH 2022-10-12 2022-10-12 2 University o f Transport Non-Med 00:00:00 00:00:00 [place] M edical Branch History SDOH 2022-10-12 2022-10-12 2 University o f Housing Unable to 00:00:00 00:00:00 [place] M edical Pay Branch History SDOH 2022-10-12 2022-10-12 1 University o f Housing Places 00:00:00 00:00:00 [place] Medi yahaira Lived Branch History SDOH 2022-10-12 2022-10-12 2 University o f Housing Homeless 00:00:00 00:00:00 [place] Me dical Last Year Branch Tobacco use and 2022-10-11 2022-10-11 Smokeless Universit y of exposure 00:00:00 00:00:00 tobacco non-user [facility] dical Echo Tobacco Comment 2022-10-11 2022-10-11 pt has not Universit y of 00:00:00 00:00:00 smoked sice age [facility] ical 19 Branch Exposure to 2022-09-30 2022-10-10 Not sure [facility]-CoV-2 (event) 00:00:00 13:56:00 [facility] Sex Ass[birth year] At [birth year] Universit y of 00:00:00 00:00:00 [facility] Smoking Status Start Date Stop Date Source Social History 2021-12-04 02:37:37 2021-12-04 02:37:37 [facility] Medications Ordered Filled Start Stop Current Ordering Indication Dosage Frequency Signature Comments Components Source Medication Medication Date Date Medication? Clinician (SIG) Name Name traMADol traMADol No QD traMADol HCl 50 MG HCl 50 MG 6-09 HCl 50 MG 00:00: 00 traMADol traMADol No QD traMADol HCl 50 MG HCl 50 MG 6-09 HCl 50 MG 00:00: 00 aspirin 81 Yes [id number] 81mg Take 1 Univers mg EC 5-19 tablet by ity of tablet 00:00: mouth in [place] 00 the Medical morning. Branch aspirin 81 Yes [id number] 81mg Take 1 Univers mg EC 5-19 tablet by ity of tablet 00:00: mouth in [place] 00 the Medical morning. Branch aspirin 81 Yes [id number] 81mg Take 1 Univers mg EC 5-19 tablet by ity of tablet 00:00: mouth in [place] 00 the Medical morning. Branch citalopram Yes 20mg Take 1 Unive rs 20 mg 5-18 tablet by ity of tablet 14:40: mouth in [place] 23 the Medical morning. Branch atorvastati Yes 40mg Take 40 mg Univers n (LIPITOR) 5-18 by mouth ity of 40 mg 14:40: at [facility] 23 bedtime. Medical Branch MULTIVITAMI Yes 1{tbl} Take 1 Tab Univers NS WITH 5-18 by mouth ity of EXTRA C 14:40: daily. [place] ORAL 23 Medical Branch citalopram Yes 20mg Take 1 Unive rs 20 mg 5-18 tablet by ity of tablet 14:40: mouth in [place] [address] the Medical morning. Branch atorvastati Yes 40mg Take 40 mg Univers n (LIPITOR) 5-18 by mouth ity of 40 mg 14:40: at [facility] 23 bedtime. Medical Branch MULTIVITAMI Yes 1{tbl} Take 1 Tab Univers NS WITH 5-18 by mouth ity of EXTRA C 14:40: daily. [place] ORAL 23 Medical Branch citalopram Yes 20mg Take 1 Unive rs 20 mg 5-18 tablet by ity of tablet 14:40: mouth in [place] [address] the Medical morning. Branch atorvastati Yes 40mg Take 40 mg Univers n (LIPITOR) 5-18 by mouth ity of 40 mg 14:40: at [facility] 23 bedtime. Medical Branch MULTIVITAMI Yes 1{tbl} Take 1 Tab Univers NS WITH 5-18 by mouth ity of EXTRA C 14:40: daily. [place] ORAL 23 Medical Branch pantoprazol 2022- No 40mg Take 1 Uni vers e 40 mg EC 5-18 05-18 tablet by ity of tablet 14:28: 00:00 mouth in [place] 51 :00 the Medical morning. Branch ondansetron [...] ity of tablet 12:58: 00:00 mouth in [place] 33 :00 the Medical morning. Branch spironolact 2022- No 25mg Take 25 mg Univers one 5-18 05-18 by mouth ity of (SPIRONOLAC 12:58: 00:00 daily. [place] as TONE) 25 mg 33 :00 Medical tablet Branch INSULIN 2022- No 52U inject 52 Univ ers GLARGINE,HU 5-18 05-18 Units ity of M.REC.ANLOG 12:58: 00:00 under the [place] (LANTUS 33 :00 skin every Medica l SOLOSTAR morning. [facility]) carvediloL 2022-0 Yes [id number] 6.25mg Take 1 Univers 6.25 mg 5-18 tablet by ity of tablet 00:00: mouth in [place] 00 the morning Branch and 1 tablet in the evening. Take with meals. pantoprazol 2022-0 Yes [id number] 40mg Take 1 Univers e 40 mg EC 5-18 tablet by ity of tablet 00:00: mouth in [place] 00 the morning. Branch carvediloL 2022-0 Yes [id number] 6.25mg Take 1 Univers 6.25 mg 5-18 tablet by ity of tablet 00:00: mouth in [place] [address] the morning Branch and 1 tablet in the evening. Take with meals. pantoprazol 2022-0 Yes [id number] 40mg Take 1 Univers e 40 mg EC 5-18 tablet by ity of tablet 00:00: mouth in [place] 00 the morning. Branch carvediloL 2022-0 Yes [id number] 6.25mg Take 1 Univers 6.25 mg 5-18 tablet by ity of tablet 00:00: mouth in [place] [address] the morning Branch and 1 tablet in the evening. Take with meals. pantoprazol 2022-0 Yes [id number] 40mg Take 1 Univers e 40 mg EC 5-18 tablet by ity of tablet 00:00: mouth in [place] [address] the morning. Branch amoxicillin 2022-0 2022- No [id number] 500mg Take 1 Univers -pot 5-18 05-26 tablet by ity of clavulanate 00:00: 04:59 [place] 500 mg 00 :00 every 24 Medical (AUGMENTIN) (twenty-fo Br anch 500-125 mg ur) hours tablet for 7 days. amoxicillin 2022-0 2022- No [id number] 500mg Take 1 Univers -pot 5-18 05-26 tablet by ity of clavulanate 00:00: 04:59 [place] 500 mg 00 :00 every 24 Medical (AUGMENTIN) (twenty-fo Br anch 500-125 mg ur) hours tablet for 7 days. FENTanyl PF 2023-0 Yes 25ug 25 mcg, Uni vers (SUBLIMAZE 17 Slow IV ity of (PF)) 11:05: Push, [place] injection 22 Q6HPRN, Medical 25 mcg Starting Branch on Wed10/14/22 at 0605, Until Discontinu ed, Routine, Pain (scale 4-6) FENTanyl PF 2022-2022- No 12.5ug 12.5 mcg, Univers (SUBLIMAZE 10-14-17 Slow IV ity o f (PF)) 08:07: 11:05 Push, [place] injection 00 :38 Q6HPRN, Medical 12.5 mcg Starting Branch on Wed10/14/22 at 0307, Until Wed10/14/22 at 0605, Routine, Pain (scale 4-6) ampicillin- 2022- No 3g 3 g, IV [...] Yes 5mg 5 mg, Univer s (NORVASC) 5-16 Oral, ity of tablet 5 mg 20:15: DAILY, [place] 00 First dose Medical on Wed Branch 10/13/22 at 1515, Until Discontinu ed, Routine hydralAZINE Yes 10mg 10 mg, Univ ers (APRESOLINE 5-16 Slow IV ity o f ) injection 20:06: Push, [place] 10 mg 16 Q6HPRN, Medical Starting Branch on Wed10/13/22 at 1506, Until Discontinu ed, Routine, DBP=>10 0; SBP=>180, For SBP > 160 ampicillin- 2022-0 2022- No 3g 3 g, IV Un arnie sulbactam 10-13 Piggyback, ity of (UNASYN) 3 01:30: 01:11 Q12H ABX, [place] g in NaCl 00 :45 1 dose, Medical 0.9% (NS) First dose Bran ch 100 mL (after MINI-BAG last modificati on) on Wed10/12/22 at 2030, Administer over 30 Minutes, 100 mL
Reas on for Anti-Infec tive: Documented Infection< br>Documen swathi Infection Site: Respirator y
Durat ion of Therapy: 7 days vancomycin 0 202- No 1250mg 1,250 mg, Univers 1,250 mg in 10-12 IV ity of NaCl 0.9% 21:00: 00:08 Piggyback, [place] (NS) 250 mL 00 :00 ONCE, 1 Medic al VIAL-MATE dose, On Branch IV [facility] piggyback 10/12/22 at 1600, Administer over 90 Minutes, 250 mL
Reas on for Anti-Infec tive: Documented Infection< br>Documen swathi Infection Site: Blood<br&g t;Duration of Therapy: 7 days methocarbam 0 Yes 750mg 750 mg, Un arnie oL 5-15 Oral, ity of (ROBAXIN) 13:06: TIDPRN, [place] tablet 750 58 Starting Medic al mg on [facility] 10/12/22 at 0806, Until Discontinu ed, Routine, Muscle Spasms atorvastati 0 Yes 40mg 40 mg, Univ ers n (LIPITOR) 5-15 Oral, QHS, it y of tablet 40 02:00: First dose [place] mg 00 on [facility] 10/11/22 at Branch 2100, Until Discontinu ed, Routine docusate 0 Yes 100mg 100 mg, Unive rs (COLACE) 5-15 Oral, BID, ity o f capsule 100 01:30: First dose [place] mg 00 on [facility] 10/11/22 at Branch 2030, Until Discontinu ed, Routine aspirin EC 0 Yes 81mg 81 mg, Unive rs tablet 81 5-14 Oral, ity of mg 14:00: DAILY, [place] 00 First dose Medical on [facility] 10/11/22 at 0900, Until Discontinu ed, Routine pantoprazol Yes 40mg 40 mg, Univ ers e 5-14 Oral, ity of (PROTONIX) 14:00: DAILY, [place] EC tablet 00 First dose Medi yahaira 40 mg on Sun Branch 10/11/22 at 0900, Until Discontinu ed, Routine citalopram Yes 20mg 20 mg, Unive rs (CELEXA) -14 Oral, ity of tablet 20 14:00: DAILY, [place] mg 00 First dose Medical on Sun Branch 10/11/22 at 0900, Until Discontinu ed, Routine azithromyci 2022- No 500mg 500 mg, U nivers n 10-11-16 Oral, ity of (ZITHROMAX) 14:00: 12:48 DAILY, 3 [place] tablet 500 00 :00 doses, Medical mg First dose Branch on 10/11/22 at 0900, Last dose on Wed10/13/22 at 0900, MELO
Re ason for Anti-Infec tive: Documented Infection< br>Documen swathi Infection Site: Respirator y
Durat ion of Therapy: Other (see Comments) ampicillin- 2022- No 3g 3 g, IV Un arnie sulbactam 10-11-15 Piggyback, ity of (UNASYN) 3 13:30: 19:27 Q12H ABX, [place] g in NaCl 00 :15 14 doses, Medic al 0.9% (NS) First dose Bran ch 100 mL on Sun MINI-BAG 10/11/22 at 0830, Last dose on 10/17/22 at 2030, Administer over 30 Minutes, 100 [...] No 10mg Take 10 mg Univers (SINGULAIR) 10-11-13 by mouth ity of 10 mg 07:29: 00:00 daily. [place] tablet 15 :00 Medical Branch D5W 0.45% 2022- No 1000mL at 50 Univ ers NaCl 5-14 05-14 mL/hr, ity of (1/2NS) IV 04:15: 17:06 1,000 mL, [place] infusion 00 :11 IV Medical 1,000 mL Infusion, Branch CONTINUOUS , Starting on 10/10/22 at 2315, Until 10/11/22 at 1206, MELO heparin 2022-0 Yes 5000U 5,000 Univers (porcine) 5-14 Units, ity of injection 03:00: Subcutaneo [place] 5,000 Units 00 us, Q8H, Medi yahaira First dose Branch on 10/10/22 at 2200, Until Discontinu ed, Routine Sliding 2022-0 Yes Subcutaneo Univ ers Scale 5-14 us, TID ity of Insulin - 02:00: MEALS+HS, [place] as Lispro 00 First dose Medical (HumaLOG) on Sat Branch 10/10/22 at 2100, Until Discontinu ed, Routine D5W 0.45% 2022- No 1000mL at 75 Univ ers NaCl 5-14 05-14 mL/hr, ity of (1/2NS) IV 01:30: 04:04 1,000 mL, [place] infusion 00 :14 IV Medical 1,000 mL Infusion, Branch CONTINUOUS , Starting on 10/10/22 at 2030, Until 10/10/22 at 2304, MELO glucagon 2022-0 Yes 1mg 1 mg, Univers (GLUCAGEN 10-10 Intramuscu ity of DIAGNOSTIC 22:01: [place], PRN, [place] KIT) 01 Starting Medical injection 1 on Sat Branch mg 10/10/22 at 1701, Until Discontinu ed, MELO, Blood Glucose < or = 70 mg/dL and patient is NPO, unable to swallow or has mental changes. dextrose 50 2022-0 Yes 25mL 25 mL, Univ ers % in water 5-13 Slow IV ity of (D50W) 22:01: Push, PRN, [place] injection 01 Starting Medica l 25 mL on Sat Branch 10/10/22 at 1701, Until Discontinu ed, MELO, Blood Glucose < or = 70 mg/dL and patient is NPO, unable to swallow or has mental status changes. piperacilli 2022- No 3.375g 3.375 g, Univers n-tazobacta 10-10 IV ity of m (ZOSYN) 21:30: 21:45 [...] 1000mL at 100 Uni vers NaCl 10-10 05-14 mL/hr, ity of (1/2NS) IV 20:30: 01:27 [...] (ESRD) 7-20 Same as: l 14:00: Retacrit) [place] 00 epoetin shannon-epbx 24352 unit/1 ml VL. For dialysis use only. WASTE: F/P - Red; E Red MEDICATION WASTE Product Size: 18319 unit Product Wasted: ___ unit aspirin No Notes: Do Memor ia 7-20 not crush l 14:00: or chew. [place] 00 (Same As: Ecotrin) Procardia No Notes: Memori a XL 30 mg 7-20 (Same as: l oral 14:00: Adalat CC, [place] tablet, 00 Procardia extended XL) Give release on empty stomach. Take 1 hour before or 2 hours after meal; "Avoid grapefruit and grapefruit juice". Do not crush Epogen No Notes: Memoria (ESRD) 7-20 Same as: l 14:00: Retacrit) [place] 00 epoetin shannon-epbx 82732 unit/1 ml VL. For dialysis use only. WASTE: F/P - Red; E Red MEDICATION WASTE Product Size: 89016 unit Product Wasted: ___ unit aspirin No Notes: Do Memor ia 7-20 not crush l 14:00: or chew. [place] 00 (Same As: Ecotrin) Procardia No Notes: Memori a XL 30 mg 7-20 (Same as: l oral 14:00: Adalat CC, [place] tablet, 00 Procardia extended XL) Give release on empty stomach. Take 1 hour before or 2 hours after meal; "Avoid grapefruit and grapefruit juice". Do not crush Epogen No Notes: Memoria (ESRD) 7-20 Same as: l 14:00: Retacrit) [place] 00 epoetin sahnnon-epbx 90128 unit/1 ml VL. For dialysis use only. WASTE: F/P - Red; E Red MEDICATION WASTE Product Size: 43829 unit Product Wasted: ___ unit aspirin No Notes: Do Memor ia 7-20 not crush l 14:00: or chew. [place] 00 (Same As: Ecotrin) Procardia No Notes: Memori a XL 30 mg 7-20 (Same as: l oral 14:00: Adalat CC, [place] tablet, 00 Procardia extended XL) Give release on empty stomach. Take 1 hour before or 2 hours after meal; "Avoid grapefruit and grapefruit juice". Do not crush Epogen No Notes: Memoria (ESRD) 7-20 Same as: l 14:00: Retacrit) [place] 00 epoetin shannon-epbx 38140 unit/1 ml VL. For dialysis use only. WASTE: F/P - Red; E Red MEDICATION WASTE Product Size: 28520 unit Product Wasted: ___ unit aspirin No Notes: Do Memor ia 7-20 not crush l 14:00: or chew. [place] 00 (Same As: Ecotrin) Procardia No Notes: Memori a XL 30 mg 7-20 (Same as: l oral 14:00: Adalat CC, [place] tablet, 00 Procardia extended XL) Give release on empty stomach. Take 1 hour before or 2 hours after meal; "Avoid grapefruit and grapefruit juice". Do not crush Epogen No Notes: Memoria (ESRD) 7-20 Same as: l 14:00: Retacrit) [place] 00 epoetin shannon-epbx 21588 unit/1 ml VL. For dialysis use only. WASTE: F/P - Red; E Red MEDICATION WASTE Product Size: 65775 unit Product Wasted: ___ unit aspirin No Notes: Do Memor ia 7-20 not crush l 14:00: or chew. [place] 00 (Same As: Ecotrin) Procardia No Notes: Memori a XL 30 mg 7-20 (Same as: l oral 14:00: Adalat CC, [place] tablet, 00 Procardia extended XL) Give release on empty stomach. Take 1 hour before or 2 hours after meal; "Avoid grapefruit and grapefruit juice". Do not crush Epogen No Notes: Memoria (ESRD) 7-20 Same as: l 14:00: Retacrit) [place] 00 epoetin shannon-epbx 88330 unit/1 ml VL. For dialysis use only. WASTE: F/P - Red; E Red MEDICATION WASTE Product Size: 69144 unit Product Wasted: ___ unit aspirin No Notes: Do Memor ia 7-20 not crush l 14:00: or chew. [place] 00 (Same As: Ecotrin) Procardia No Notes: Memori a XL 30 mg 7-20 (Same as: l oral 14:00: Adalat CC, Booker tablet, 00 Procardia extended XL) Give release on empty stomach. Take 1 hour before or 2 hours after meal; "Avoid grapefruit and grapefruit juice". Do not crush Epogen No Notes: Memoria (ESRD) 7-20 Same as: l 14:00: Retacrit) [place] 00 epoetin shannon-epbx 21896 unit/1 ml VL. For dialysis use only. WASTE: F/P - Red; E Red MEDICATION WASTE Product Size: 77564 unit Product Wasted: ___ unit aspirin No [...] l 14:00: Retacrit) Booker 00 epoetin shannon-epbx 41124 unit/1 ml VL. For dialysis use only. WASTE: F/P - Red; E Red MEDICATION WASTE Product Size: 12265 unit Product Wasted: ___ unit aspirin No Notes: Do Memor ia 7-20 not crush l 14:00: or chew. [place] 00 (Same As: Ecotrin) Procardia No Notes: Memori a XL 30 mg 7-20 (Same as: l oral 14:00: Adalat CC, [place] tablet, 00 Procardia extended XL) Give release on empty stomach. Take 1 hour before or 2 hours after meal; "Avoid grapefruit and grapefruit juice". Do not crush Epogen No Notes: Memoria (ESRD) 7-20 Same as: l 14:00: Retacrit) Booker 00 epoetin shannon-epbx 46021 unit/1 ml VL. For dialysis use only. WASTE: F/P - Red; E Red MEDICATION WASTE Product Size: 30185 unit Product Wasted: ___ unit aspirin No Notes: Do Memor ia 7-20 not crush l 14:00: or chew. [place] 00 (Same As: Ecotrin) Procardia No Notes: Memori a XL 30 mg 7-20 (Same as: l oral 14:00: Adalat CC, [place] tablet, 00 Procardia extended XL) Give release on empty stomach. Take 1 hour before or 2 hours after meal; "Avoid grapefruit and grapefruit juice". Do not crush Epogen No Notes: Memoria (ESRD) 7-20 Same as: l 14:00: Retacrit) [place] 00 epoetin shannon-epbx 37869 unit/1 ml VL. For dialysis use only. WASTE: F/P - Red; E Red MEDICATION WASTE Product Size: 78416 unit Product Wasted: ___ unit aspirin No Notes: Do Memor ia 7-20 not crush l 14:00: or chew. [place] 00 (Same As: Ecotrin) Procardia No Notes: Memori a XL 30 mg 7-20 (Same as: l oral 14:00: Adalat CC, [place] tablet, 00 Procardia extended XL) Give release on empty stomach. Take 1 hour before or 2 hours after meal; "Avoid grapefruit and grapefruit juice". Do not crush Epogen No Notes: Memoria (ESRD) 7-20 Same as: l 14:00: Retacrit) [place] epoetin shannon-epbx 05660 unit/1 ml VL. For dialysis use only. WASTE: F/P - Red; E Red MEDICATION WASTE Product Size: 00279 unit Product Wasted: ___ unit aspirin No Notes: Do Memor ia 7-20 not crush l 14:00: or chew. [place] 00 (Same As: Ecotrin) Procardia No Notes: Memori a XL 30 mg 7-20 (Same as: l oral 14:00: Adalat CC, [place] tablet, 00 Procardia extended XL) Give release on empty stomach. Take 1 hour before or 2 hours after meal; "Avoid grapefruit and grapefruit juice". Do not crush Epogen No Notes: Memoria (ESRD) 7-20 Same as: l 14:00: Retacrit) Lyons epoetin shannon-epbx 40281 unit/1 ml VL. For dialysis use only. WASTE: F/P - Red; E Red MEDICATION WASTE Product Size: 10073 unit Product Wasted: ___ unit Lipitor No Notes: Memoria 7-20 (Same as: l 02:00: Lipitor) Booker Lipitor No Notes: Memoria 7-20 (Same as: l 02:00: Lipitor) Lyons Lipitor No Notes: Memoria 7-20 (Same as: [...] Memoria 7-20 (Same as: l 02:00: Lipitor) [place] 00 Lipitor No Notes: Memoria 7-20 (Same [...] l capsule 22:00: Omnicef) Thomas n cefdinir 2022-0 No Notes: Memoria 300 mg oral 7-19 (Same As: l capsule 22:00: Omnicef) Thomas n 00 dexamethaso 2021-0 Yes 6 mg = 1 Me moria ne 6 mg 7-19 tab, PO, l oral tablet 21:19: Daily, X 3 Booker 00 day, # 3 tab, 0 Refill(s), Pharmacy: [id number], 177.8, cm, 12/14/21 22:03:00 CDT, Height, 95.2, kg, 12/14/21 22:03:00 CDT, Weight dexamethaso 2021-0 Yes 6 mg = 1 Me moria ne 6 mg 7-19 tab, PO, l oral tablet 21:19: Daily, X 3 Booker 00 day, # 3 tab, 0 Refill(s), Pharmacy: [facility] #[id number], 177.8, cm, 12/14/21 22:03:00 CDT, Height, 95.2, kg, 12/14/21 22:03:00 CDT, Weight dexamethaso 2021-0 Yes 6 mg = 1 Me moria ne 6 mg 7-19 tab, PO, l oral tablet 21:19: Daily, X 3 Booker 00 day, # 3 tab, 0 Refill(s), Pharmacy: [facility] #[id number], 177.8, cm, 12/14/21 22:03:00 CDT, Height, 95.2, kg, 12/14/21 22:03:00 CDT, Weight dexamethaso 2021-0 Yes 6 mg = 1 Me moria ne 6 mg 7-19 tab, PO, l oral tablet 21:19: Daily, X 3 [place] 00 day, # 3 tab, 0 Refill(s), Pharmacy: [facility] #[id number], 177.8, cm, 12/14/21 22:03:00 CDT, Height, 95.2, kg, 12/14/21 22:03:00 CDT, Weight dexamethaso 2021-0 Yes 6 mg = 1 Me moria ne 6 mg 7-19 tab, PO, l oral tablet 21:19: Daily, X 3 [place] 00 day, # 3 tab, 0 Refill(s), Pharmacy: [facility] #[id number], 177.8, cm, 12/14/21 22:03:00 CDT, Height, 95.2, kg, 12/14/21 22:03:00 CDT, Weight dexamethaso 2022-0 Yes 6 mg = 1 Me moria ne 6 mg 7-19 tab, PO, l oral tablet 21:19: Daily, X 3 Booker 00 day, # 3 tab, 0 Refill(s), Pharmacy: [facility] #[id number], 177.8, cm, 12/14/21 22:03:00 CDT, Height, 95.2, kg, 12/14/21 22:03:00 CDT, Weight dexamethaso 2022-0 Yes 6 mg = 1 Me moria ne 6 mg 7-19 tab, PO, l oral tablet 21:19: Daily, X 3 [place] 00 day, # 3 tab, 0 Refill(s), Pharmacy: [facility] #[id number], 177.8, cm, 12/14/21 22:03:00 CDT, Height, 95.2, kg, 12/14/21 22:03:00 CDT, Weight dexamethaso 2022-0 Yes 6 mg = 1 Me moria ne 6 mg 7-19 tab, PO, l oral tablet 21:19: Daily, X 3 Booker 00 day, # 3 tab, 0 Refill(s), Pharmacy: [facility] #[id number], 177.8, cm, 12/14/21 22:03:00 CDT, Height, 95.2, kg, 12/14/21 22:03:00 CDT, Weight dexamethaso 2022-0 Yes 6 mg = 1 Me moria ne 6 mg 7-19 tab, PO, l oral tablet 21:19: Daily, X 3 Booker 00 day, # 3 tab, 0 Refill(s), Pharmacy: [facility] #[id number], 177.8, cm, 12/14/21 22:03:00 CDT, Height, 95.2, kg, 12/14/21 22:03:00 CDT, Weight dexamethaso 2022-0 Yes 6 mg = 1 Me moria ne 6 mg 7-19 tab, PO, l oral tablet 21:19: Daily, X 3 Booker day, # 3 tab, 0 Refill(s), Pharmacy: [facility] #[id number], 177.8, cm, 12/14/21 22:03:00 CDT, Height, 95.2, kg, 12/14/21 22:03:00 CDT, Weight dexamethaso 2022-0 Yes 6 mg = 1 Me moria ne 6 mg 7-19 tab, PO, l oral tablet 21:19: Daily, X 3 Booker day, # 3 tab, 0 Refill(s), Pharmacy: [facility] #[id number], 177.8, cm, 12/14/21 22:03:00 CDT, Height, 95.2, kg, 12/14/21 22:03:00 CDT, Weight dexamethaso 2022-0 Yes 6 mg = 1 Me moria ne 6 mg 7-19 tab, PO, l oral tablet 21:19: Daily, X 3 [place]ons day, # 3 tab, 0 Refill(s), Pharmacy: [facility] #[id number], 177.8, cm, 12/14/21 22:03:00 CDT, Height, [...] nn 00 cap, 1 Refill(s) melatonin 3 2022-0 Yes 3 mg = 1 Me moria mg oral 7-19 tab, PO, l tablet 20:29: Bedtime, [place] 00 PRN for insomnia, # 14 tab, 0 Refill(s) melatonin Yes 3 mg = 1 Me moria mg oral 7-19 tab, PO, l tablet 20:29: Bedtime, [place] 00 PRN for insomnia, # 14 tab, [...] 7-19 tab, PO, l tablet 20:29: Bedtime, [place] 00 PRN for insomnia, # 14 tab, 0 Refill(s) melatonin Yes 3 mg = 1 Me moria mg oral 7-19 tab, PO, l tablet 20:29: Bedtime, [place] 00 PRN for insomnia, # 14 tab, 0 Refill(s) melatonin Yes 3 mg = 1 Me moria mg oral 7-19 tab, PO, l tablet 20:29: Bedtime, Booker 00 PRN for insomnia, # 14 tab, 0 Refill(s) melatonin Yes 3 mg = 1 Me moria mg oral 7-19 tab, PO, l tablet 20:29: Bedtime, [place] 00 PRN for insomnia, # 14 tab, [...] PO, l enteric 20:27: Daily, PRN Herm silsa coated 00 Constipati tablet on, # 20 tab, 0 Refill(s) carvedilol Yes 12.5 mg = Me moria 12.5 mg 7-19 1 tab, PO, l oral tablet 20:27: Q12H, # 60 [place]ons 00 tab, 0 Refill(s) bisacodyl 5 Yes [...] l oral tablet 20:27: Q12H, # 60 [place] 00 tab, 0 Refill(s) bisacodyl 5 0 [...] l oral tablet 20:27: Q12H, # 60 [place] 00 tab, 0 Refill(s) bisacodyl 5 Yes [...] l oral tablet 20:27: Q12H, # 60 [place] 00 tab, 0 Refill(s) bisacodyl 5 Yes [...] l oral tablet 20:27: Q12H, # 60 [place] 00 tab, 0 Refill(s) aspirin 81 2022-0 [...] hours after meals. (Same As: Zithromax) azithromyci 0 No Notes: Heath bobo n 250 mg 7-19 Take 1 l oral tablet 19:00: hour Thomas n 00 before or 2 hours after meals. (Same As: Zithromax) azithromyci 0 No Notes: Heath bobo n 250 mg 7-19 Take 1 l oral tablet 19:00: hour Thomas n 00 before or 2 hours after meals. (Same As: Zithromax) azithromyci 0 No Notes: Heath bobo n 250 mg [...] hours after meals. (Same As: Zithromax) sevelamer 0 No Notes: Memori a 7-19 Same as: l 13:00: Renvela [place] 00 sevelamer 0 No Notes: Memori a 7-19 Same as: l 13:00: Renvela Booker sevelamer 2021-0 No Notes: Memori a 7-19 Same as: l 13:00: Renvela [place] 00 sevelamer 2021-0 No Notes: Memori a 7-19 Same as: l 13:00: Renvela Booker sevelamer 2021-0 No Notes: Memori a 7-19 Same as: l 13:00: Renvela [place] 00 sevelamer 2021-0 No Notes: Memori a 7-19 Same as: l 13:00: Renvela [place] 00 sevelamer 2021-0 No Notes: Memori a 7-19 Same as: l 13:00: Renvela [place] 00 sevelamer 2021-0 No Notes: Memori a 7-19 Same as: l 13:00: Renvela [place] 00 sevelamer 2021-0 No Notes: Memori a 7-19 Same as: l 13:00: Renvela [place] 00 sevelamer 2021-0 No Notes: Memori a 7-19 Same as: l 13:00: Renvela Booker 00 sevelamer 2021-0 No Notes: Memori a 7-19 Same as: l 13:00: Renvela [place] 00 sevelamer No Notes: Anup a 12-16 Same as: l 13:00: Troy Celeste albumin Yes Notes: Lot Heath mercado 25% 12-16 #: l intravenous 02:33: Lyons solution 00 ___ Mfg: (Same as: Plasbumin- [...] mercado 25% 12-16 #: l intravenous 02:33: Lyons solution 00 ___ Mfg: (Same as: Plasbumin- 25) "blood product derivative " WASTE: F/P - Red; E -Red MEDICATION WASTE Product Size: 25 gm Product Wasted: ___ gm albumin Yes Notes: Lot Heath mercado 25% 12-16 #: l intravenous 02:33: Lyons solution 00 ___ Mfg: (Same as: Plasbumin- [...] mercado 25% 12-16 #: l intravenous 02:33: Lyons solution 00 ___ Mfg: (Same as: Plasbumin- [...] pratropium 7-18 Same as: l 13:00: Combivent [place] Respimat WASTE: Aerosol - Return to Pharmacy albuterol-i No Notes: Heath bobo pratropium 7-18 Same as: l 13:00: Combivent [place] Respimat WASTE: Aerosol - Return to Pharmacy albuterol-i No Notes: Heath bobo pratropium 7-18 Same as: l 13:00: Combivent Booker Respimat WASTE: Aerosol - Return to Pharmacy albuterol-i 0 No Notes: Heath bobo pratropium 7-18 Same as: l 13:00: Combivent [place] Respimat WASTE: Aerosol - Return to Pharmacy albuterol-i No Notes: Heath bobo pratropium 7-18 Same as: l 13:00: Combivent Booker 00 Respimat WASTE: Aerosol - Return to Pharmacy albuterol-i 2021-0 No Notes: Heath bobo pratropium 7-18 Same as: l 13:00: Combivent [place] 00 Respimat WASTE: Aerosol - Return to [...] pratropium 7-18 Same as: l 13:00: Combivent [place] 00 Respimat WASTE: Aerosol - Return to Pharmacy albuterol-i 2021-0 No Notes: Heath bobo pratropium 7-18 Same as: l 13:00: Combivent [place] 00 Respimat WASTE: Aerosol - Return to [...] 5,000 Memoria 7-18 unit, l 05:00: Route: [place] 00 SUB-Q, Q8H, Dosing Weight 95.455, kg, [...] 5,000 Memoria 7-18 unit, l 05:00: Route: [place] 00 SUB-Q, Q8H, Dosing Weight 95.455, kg, [...] CDT, Stop date: 01/13/22 16:00:00 CDT heparin 0 No 5,000 Memoria 7-18 unit, l 05:00: Route: Booker 00 SUB-Q, Q8H, Dosing Weight 95.455, kg, Start date: 12/15/21 0:00:00 CDT, Stop date: 01/13/22 16:00:00 CDT heparin No Notes: Memoria 7-18 porcine l 02:00: heparin Booker 00 heparin No Notes: Memoria 7-18 porcine l 02:00: heparin Booker 00 heparin No Notes: Memoria 7-18 porcine l 02:00: heparin [place] 00 heparin No Notes: Memoria 7-18 porcine l 02:00: heparin Booker 00 heparin No Notes: Memoria 7-18 porcine l 02:00: heparin Booker 00 heparin No Notes: Memoria 7-18 porcine l 02:00: heparin Booker 00 heparin No Notes: Memoria 7-18 porcine l 02:00: heparin Booker 00 heparin No Notes: Memoria 7-18 porcine l 02:00: heparin [place] 00 heparin 0 No Notes: Memoria 7-18 porcine l 02:00: heparin Booker 00 heparin 0 No Notes: Memoria 7-18 porcine l 02:00: heparin Booker 00 heparin 0 No Notes: Memoria 7-18 porcine l 02:00: heparin Booker 00 heparin 0 No Notes: Memoria 7-18 porcine l 02:00: heparin [place] 00 albuterol-i No Notes: Heath bobo pratropium 7-18 (Same as: l 2.5-0.5 mg 01:00: Duoneb) Herm silas inhalation 00 solution albuterol-i 2021- No Notes: Heath bobo pratropium 7-18 (Same [...] 1000 mg Product Wasted: ___ mg azithromyci 2022-0 No Notes: Heath bobo n [...] Wasted: ___ mg azithromyci 2021-0 No Notes: Ehath bobo n + Sodium 7-18 (Same As: [...] Rate: 999 l Water IV 23:57: ml/hr, Lyons 00 Infuse over: 0.1 hr, Route: IV, [...] Rate: 999 l Water IV 23:57: ml/hr, Lyons 00 Infuse over: 0.1 hr, Route: IV, Total Volume: 125, Start date: 12/14/21 18:57:00 CDT, Duration: 30 day, Stop date: 01/13/22 18:56:00 CDT, PRN Blood Glucose Results, 0 Dextrose 2022-0 No 125 mL, Memori a 10% in 12-14 Rate: 999 l Water IV 23:57: ml/hr, Lyons 00 Infuse over: 0.1 hr, Route: IV, [...] Rate: 999 l Water IV 23:57: ml/hr, Lyons 00 Infuse over: 0.1 hr, Route: IV, [...] Rate: 999 l Water IV 23:57: ml/hr, Lyons 00 Infuse over: 0.1 hr, Route: IV, Total Volume: 125, Start date: 12/14/21 18:57:00 CDT, Duration: 30 day, Stop date: 01/13/22 18:56:00 CDT, PRN Blood Glucose Results, 0 Dextrose 2022-0 No 250 mL, Memori a 10% in 12-14 Rate: 999 l Water IV 23:53: ml/hr, Lyons 00 Infuse over: 0.3 hr, Route: IV, [...] Rate: 999 l Water IV 23:53: ml/hr, Lyons 00 Infuse over: 0.3 hr, Route: IV, [...] Rate: 999 l Water IV 23:53: ml/hr, Lyons 00 Infuse over: 0.3 hr, Route: IV, [...] Rate: 999 l Water IV 23:53: ml/hr, Lyons 00 Infuse over: 0.3 hr, Route: IV, Total Volume: 250, Start date: 12/14/21 18:53:00 CDT, Duration: 30 day, Stop date: 01/13/22 18:52:00 CDT, PRN Blood Glucose Results, 0 Dextrose 2022-0 No 250 mL, Krissyori a 10% in 12-14 Rate: 999 l Water IV 23:53: ml/hr, Booker 00 Infuse over: 0.3 hr, Route: IV, Total Volume: 250, Start date: 12/14/21 18:53:00 CDT, Duration: 30 day, Stop date: 01/13/22 18:52:00 CDT, PRN Blood Glucose Results, 0 [facility] Vancom[facility] l Dosing 23:36: Pharmacy [place] Consult 47 Dosing Protocol PHARMAC Y USE ONLY Note: This is not a medication order. This is a consultati on order. Vancomycin No [facility] Vancomycin l Dosing 23:36: Pharmacy [place] Consult 47 Dosing Protocol PHARMAC Y USE ONLY Note: This is not a medication order. This is a consultati on order. Vancomycin No [facility] Vancomycin l Dosing 23:36: Pharmacy [place] Consult 47 Dosing Protocol PHARMAC Y USE ONLY Note: This is not a medication order. This is a consultati on order. Vancomycin No [facility] Vancomycin l Dosing 23:36: Pharmacy [place] Consult 47 Dosing Protocol PHARMAC Y USE ONLY Note: This is not a medication order. This is a consultati on order. Vancomycin No [facility] Vancomycin l Dosing 23:36: Pharmacy [place] Consult 47 Dosing Protocol PHARMAC Y USE ONLY Note: This is not a medication order. This is a consultati on order. Vancomycin No [facility] Vancomycin l Dosing 23:36: Pharmacy [place] Consult 47 Dosing Protocol PHARMAC Y USE ONLY Note: This is not a medication order. This is a consultati on order. Vancomycin No [facility] Vancomycin l Dosing 23:36: Pharmacy [place] Consult 47 Dosing Protocol PHARMAC Y USE [...] Pharmacy 12-14 Vancomycin l Dosing 23:36: Pharmacy [place] Consult 47 Dosing Protocol PHARMAC Y USE [...] a consultati on order. Vancomycin No [facility] Vancomycin l Dosing 23:36: Pharmacy [place] Consult 47 Dosing Protocol PHARMAC Y USE [...] 1.4% 7-17 Chlorasept l spray 23:30: ic [place] (Same as: Chlorasept ic, Sore Throat [place]) WASTE: F/P - Black; E - Municipal [...] 7-17 (Same as: l tablet 23:30: Pepcid) Hamer 5/325 No Notes: Heath bobo oral tablet 7-17 (Same as: l 23:30: Hamer 325/5) Do not exceed 4gm/day of acetaminop [...] 1.4% 7-17 Chlorasept l spray 23:30: ic [place] (Same as: Chlorasept ic, Sore Throat [place]) WASTE: F/P - Black; E - Municipal [...] 7-17 (Same as: l tablet 23:30: Pepcid) Hamer 5/325 No Notes: Heath bobo oral tablet 7-17 (Same as: l 23:30: Hamer 325/5) Do not exceed 4gm/day of acetaminop [...] 1.4% 7-17 Chlorasept l spray 23:30: ic [place] (Same as: Chlorasept ic, Sore Throat [place]) WASTE: F/P - Black; E - Municipal [...] 7-17 (Same as: l tablet 23:30: Pepcid) Hamer 5/325 No Notes: Heath bobo oral tablet 7-17 (Same as: l 23:30: Hamer 325/5) Do not exceed 4gm/day of acetaminop [...] 1.4% 7-17 Chlorasept l spray 23:30: ic [place] (Same as: Chlorasept ic, Sore Throat [place]) WASTE: F/P - Black; E - Municipal [...] 7-17 (Same as: l tablet 23:30: Pepcid) Hamer 5/325 No Notes: Heath bobo oral tablet 7-17 (Same as: l 23:30: Hamer [place] 00 325/5) Do not exceed 4gm/day of [...] 1.4% -17 Chlorasept l spray 23:30: ic [place] (Same as: Chlorasept ic, Sore Throat [place]) WASTE: F/P - Black; E - Municipal [...] 7-17 (Same as: l tablet 23:30: Pepcid) Hamer 5/325 No Notes: Heath bobo oral tablet 7-17 (Same as: l 23:30: Hamer 325/5) Do not exceed 4gm/day of acetaminop [...] 1.4% 7-17 Chlorasept l spray 23:30: ic [place] (Same as: Chlorasept ic, Sore Throat [place]) WASTE: F/P - Black; E - Municipal [...] 7-17 (Same as: l tablet 23:30: Pepcid) Hamer 5/325 No Notes: Heath bobo oral tablet 7-17 (Same as: l 23:30: Hamer 00 325/5) Do not exceed 4gm/day of [...] 1.4% 7-17 Chlorasept l spray 23:30: ic [place] (Same as: Chlorasept ic, Sore Throat [place]) WASTE: F/P - Black; E - Municipal [...] 7-17 (Same as: l tablet 23:30: Pepcid) Hamer 5/325 No Notes: Heath bobo oral tablet 7-17 (Same as: l 23:30: Hamer 325/5) Do not exceed 4gm/day of acetaminop [...] 1.4% 7-17 Chlorasept l spray 23:30: ic [place] (Same as: Chlorasept ic, Sore Throat [place]) WASTE: F/P - Black; E - Municipal [...] 7-17 (Same as: l tablet 23:30: Pepcid) Hamer 5/325 No Notes: Heath bobo oral tablet 7-17 (Same as: l 23:30: Hamer [place] 00 325/5) Do not exceed 4gm/day of [...] 1.4% 7-17 Chlorasept l spray 23:30: ic [place] (Same as: Chlorasept ic, Sore Throat [place]) WASTE: F/P - Black; E - Municipal [...] 7-17 (Same as: l tablet 23:30: Pepcid) Hamer 5/325 No Notes: Heath bobo oral tablet 7-17 (Same as: l 23:30: Hamer [place] 325/5) Do not exceed 4gm/day of [...] 1.4% 7-17 Chlorasept l spray 23:30: ic [place] (Same as: Chlorasept ic, Sore Throat [place]) WASTE: F/P - Black; E - Municipal [...] 1.4% 7-17 Chlorasept l spray 23:30: ic [place] (Same as: Chlorasept ic, Sore Throat [place]) WASTE: F/P - Black; E - Municipal [...] 7-17 (Same as: l tablet 23:30: Pepcid) Lyons Hamer 5/325 No Notes: Heath bobo oral tablet 7-17 (Same as: l 23:30: Hamer [place] 00 325/5) Do not exceed 4gm/day of acetaminop hen. morphine No 1 mg, 0.5 Heath bobo Sulfate 7-17 mL, Route: l 23:30: IVP, Drug form: SOLN, Q4H, Dosing Weight 95.455, kg, PRN Pain Score 7-10, Start date: 12/14/21 18:30:00 CDT, Duration: 30 day, Stop date: 01/13/22 18:29:00 CDT, 0 Hamer 5/325 No Notes: Heath bobo oral tablet 7-17 (Same as: l 23:30: Hamer [place] 00 325/5) Do not exceed 4gm/day [...] 1.4% 7-17 Chlorasept l spray 23:30: ic [place] (Same as: Chlorasept ic, Sore Throat [place]) WASTE: F/P - Black; E - Municipal [...] 7-17 (Same as: l tablet 23:30: Pepcid) Hamer 5/325 No Notes: Heath bobo oral tablet 7-17 (Same as: l 23:30: Hamer Booker 00 325/5) Do not exceed 4gm/day [...] Syringe 7-17 Route: l (D50W) 23:29: IVP, Lyons 00 Dosing Weight 95.455, kg, PRN, PRN Blood Glucose Results, Start date: 12/14/21 18:29:00 CDT, Duration: 30 day, Stop date: 01/13/22 18:28:00 CDT glucagon 2022-0 No 1 mg, Memoria 7-17 Route: IM, l 23:29: Drug form: [place] 00 PDR/INJ, PRN, Dosing Weight 95.455, kg, PRN Blood Glucose Results, Start date: 12/14/21 18:29:00 CDT, Duration: 30 day, Stop date: 01/13/22 18:28:00 CDT, 0 insulin 2022-0 No Notes: Memoria lispro 7-17 (Same as: l 23:29: Humalog) Lyons 00 Roll in palms of hands gently; [...] 7-17 Route: IM, l 23:29: Drug form: [place] 00 PDR/INJ, PRN, Dosing Weight 95.455, kg, PRN Blood Glucose Results, Start date: 12/14/21 18:29:00 CDT, Duration: 30 day, Stop date: 01/13/22 18:28:00 CDT, 0 insulin 2021-0 No Notes: Memoria lispro 7-17 (Same as: l 23:29: Humalog) Lyons 00 Roll in palms of hands gently; Do not shake vigorously . WASTE: F/P - Black; E - Municipal Trash Bin Stable for 28 days at room temperatur e. Expires in days from ____Date Dextrose 2021-0 No 25 mL, Memoria 50% Syringe 7-17 Route: l (D50W) 23:29: IVP, [place] 00 Dosing Weight 95.455, kg, PRN, PRN [...] lispro 7-17 (Same as: l 23:29: Humalog) Lyons 00 Roll in palms of hands gently; Do not shake vigorously . WASTE: F/P - Black; E - Municipal Trash Bin Stable for 28 days at room temperatur e. Expires in days from ____Date Dextrose 2022-0 No 25 mL, Memoria 50% Syringe 7-17 Route: l (D50W) 23:29: IVP, [place] 00 Dosing Weight 95.455, kg, PRN, PRN [...] 7-17 Route: IM, l 23:29: Drug form: [place] 00 PDR/INJ, PRN, Dosing Weight 95.455, kg, PRN Blood Glucose Results, Start date: 12/14/21 18:29:00 CDT, Duration: 30 day, Stop date: 01/13/22 18:28:00 CDT, 0 insulin 2022-0 No Notes: Memoria lispro 7-17 (Same as: l 23:29: Humalog) [place]ons 00 Roll in palms of hands gently; [...] 7-17 (Same as: l 23:29: Humalog) Booker Roll in palms of hands gently; Do [...] 7-17 Route: IM, l 23:29: Drug form: [place] 00 PDR/INJ, PRN, Dosing Weight 95.455, kg, [...] Syringe 7-17 Route: l (D50W) 23:29: IVP, [place] 00 Dosing Weight 95.455, kg, PRN, PRN Blood Glucose Results, Start date: 12/14/21 18:29:00 CDT, Duration: 30 day, Stop date: 01/13/22 18:28:00 CDT glucagon 2022-0 No 1 mg, Memoria 7-17 Route: IM, l 23:29: Drug form: [place]ons PDR/INJ, PRN, Dosing Weight 95.455, kg, PRN [...] e. Expires in days from ____Date Tessalon 2022-0 No Notes: Memoria Perles 7-17 (Same As: [...] Memoria sulfate 7-17 (Zinc l 23:28: sulfate Lyons capsule) - 220 mg Zinc sulfate = [...] Perles 7-17 (Same As: l 23:28: Tessalon [place] Perles) "Do Not Crush" zinc No Notes: [...] Memoria sulfate 7-17 (Zinc l 23:28: sulfate [place] 00 capsule) - 220 mg Zinc sulfate = 50 mg elemental zinc Same as Zinc Sulfate ascorbic No Notes: Memoria acid 7-17 (Same as: l 23:28: Vitamin C) No Notes: Memoria Perles 7-17 (Same As: l 23:28: Tessalon [place] 00 Perles) "Do Not Crush" zinc No [...] Memoria sulfate 7-17 (Zinc l 23:28: sulfate [place]ons capsule) - 220 mg Zinc sulfate = [...] Product Wasted: ___ mg azithromyci No Notes: Haeth bobo n + Sodium 7-17 (Same As: [...] 7-17 Take with l 22:40: food. Booker Rocephin + No Notes: Memor ia Sodium [...] Memoria 7-17 Take with l 22:40: food. Lyons 00 Rocephin + No Notes: Memor ia [...] Memoria 7-17 Take with l 22:40: food. [place] 00 Rocephin + No Notes: Memor ia [...] Rate: 999 l Water IV 21:08: ml/hr, Lyons Infuse over: 0.3 hr, Route: IV, Total Volume: 250, Start date: 12/14/21 16:08:00 CDT, Stop date: 12/14/21 16:08:00 CDT, 0 Dextrose 2022-0 No 250 mL, Memori a 10% in 12-14 Rate: 999 l Water IV 21:08: ml/hr, [place] 00 Infuse over: 0.3 hr, Route: IV, Total Volume: 250, Start date: 12/14/21 16:08:00 CDT, Stop date: 12/14/21 16:08:00 CDT, 0 Dextrose 2022-0 No 250 mL, Memori a 10% in 12-14 Rate: 999 l Water IV 21:08: ml/hr, [place] 00 Infuse over: 0.3 hr, Route: IV, [...] Rate: 999 l Water IV 21:08: ml/hr, [place] Infuse over: 0.3 hr, Route: IV, Total [...] Heath bobo 7-17 Route: l 20:41: IVP, [place] Dosing Weight 95.455, kg, ONCE, STAT, Start date: 12/14/21 15:41:00 CDT, Stop date: 12/14/21 15:41:00 CDT, 25 ml = 12.5 gm d50 syringe 2021-0 No 25 mL, Heath bobo 7-17 Route: l 20:41: IVP, [place] Dosing Weight 95.455, kg, ONCE, STAT, Start date: 12/14/21 15:41:00 CDT, Stop date: 12/14/21 15:41:00 CDT, 25 ml = 12.5 gm d50 syringe 2-0 No 25 mL, Heath bobo 7-17 Route: l 20:41: IVP, [place] Dosing Weight 95.455, kg, ONCE, STAT, Start [...] Heath bobo 7-17 Route: l 20:41: IVP, [place] 00 Dosing Weight 95.455, kg, ONCE, STAT, Start date: 12/14/21 15:41:00 CDT, Stop date: 12/14/21 15:41:00 CDT, 25 ml = 12.5 gm d50 syringe 2022-0 No 25 mL, Heath bobo 7-17 Route: l 20:41: IVP, [place] 00 Dosing Weight 95.455, kg, ONCE, STAT, [...] Rate: To l 0.9% 01:29: prime line [place] (titrate) 00 and flush 250 mL remaining blood products., Dosing Weight 88.636, kg, Route: IV, Total Volume: 250, Start Date: 12/03/21 20:29:00 CDT, Duration: 1 day, Stop date: 12/04/21 20:28:00 CDT, Replace Every: 24 hr, 0 Sodium 2022-0 No 250 mL, [facility] Chloride 7-07 Rate: To l 0.9% 01:29: prime line [place] (titrate) 00 and flush 250 mL remaining [...] Rate: To l 0.9% 01:29: prime line [place] (titrate) 00 and flush 250 mL remaining [...] Rate: To l 0.9% 01:29: prime line [place] (titrate) 00 and flush 250 mL remaining blood products., Dosing Weight 88.636, kg, Route: IV, Total Volume: 250, Start Date: 12/03/21 20:29:00 CDT, Duration: 1 day, Stop date: 12/04/21 20:28:00 CDT, Replace Every: 24 hr, 0 Sodium 2022-0 No 250 mL, [facility] Chloride 7-07 Rate: To l 0.9% 01:29: prime line [place] (titrate) 00 and flush 250 mL remaining blood products., Dosing Weight 88.636, kg, Route: IV, Total Volume: 250, Start Date: 12/03/21 20:29:00 CDT, Duration: 1 day, Stop date: 12/04/21 20:28:00 CDT, Replace Every: 24 hr, 0 Sodium 2022-0 No 250 mL, [facility] Chloride 7-07 Rate: To l 0.9% 01:29: prime line [place] (titrate) 00 and flush 250 mL remaining [...] Rate: To l 0.9% 01:29: prime line [place] (titrate) 00 and flush 250 mL remaining [...] tab, PO, l tablet 19:37: Daily, # [place] 00 30 tab, 0 Refill(s), other Plavix 75 2022-0 Yes 75 mg = 1 Mem oria mg oral 6-28 tab, PO, l tablet 19:37: Daily, # [place] 00 30 tab, 0 Refill(s), other Plavix 75 2022-0 Yes 75 mg = 1 Mem oria mg oral 6-28 tab, PO, l tablet 19:37: Daily, # [place] 00 30 tab, 0 Refill(s), other Plavix 75 2022-0 Yes 75 mg = 1 Mem oria mg oral 6-28 tab, PO, l tablet 19:37: Daily, # [place] 00 30 tab, 0 Refill(s), other Plavix 75 2022-0 Yes 75 mg = 1 Mem [facility] mg oral 6-28 tab, PO, l tablet 19:37: Daily, # [place] 00 30 tab, 0 Refill(s), other Plavix 75 2022-0 Yes 75 mg = 1 Mem [facility]ria mg oral 6-28 tab, PO, l tablet 19:37: Daily, # [place] 00 30 tab, 0 Refill(s), other Plavix 75 2022-0 Yes 75 mg = 1 Mem [facility] mg oral 6-28 tab, PO, l tablet 19:37: Daily, # [place] 00 30 tab, 0 Refill(s), other Plavix 75 2022-0 Yes 75 mg = 1 Mem [facility] mg oral 6-28 tab, PO, l tablet 19:37: Daily, # [place] 00 30 tab, 0 Refill(s), other Plavix 75 2022-0 Yes 75 mg = 1 Mem [facility] mg oral 6-28 tab, PO, l tablet 19:37: Daily, # [place] 00 30 tab, 0 Refill(s), other Protonix 2021-0 No Notes: For Mem oria 6-28 IV push l 14:00: reconstitu [place] 00 te with 10 ml 0.9% sodium chloride and push over 2 minutes. (Same as: Protonix) atorvastati No Notes: Heath bobo n 6-28 (Same as: l 14:00: Lipitor) [place] citalopram No Notes: Memor ia 6-28 (Same As: l 14:00: CeleXA) [place] Protonix No Notes: For Mem oria 6-28 IV push l 14:00: reconstitu [place] 00 te with 10 ml 0.9% sodium chloride and push over 2 minutes. (Same as: Protonix) atorvastati No Notes: Heath bobo n 6-28 (Same as: l 14:00: Lipitor) [place] 00 citalopram No Notes: Memor ia 6-28 (Same As: l 14:00: CeleXA) [place] 00 Protonix No Notes: For Mem oria 6-28 IV push l 14:00: reconstitu [place] 00 te with 10 ml 0.9% sodium chloride and push over 2 minutes. (Same as: Protonix) atorvastati No Notes: Heath bobo n 6-28 (Same as: l 14:00: Lipitor) [place] 00 citalopram No Notes: Memor ia 6-28 (Same As: l 14:00: CeleXA) [place] Protonix No Notes: For Mem oria 6-28 [...] ia 6-28 (Same As: l 14:00: CeleXA) [place] Protonix No Notes: For Mem oria 6-28 [...] oria 6-28 IV push l 14:00: reconstitu [place] 00 te with 10 ml 0.9% sodium chloride and push over 2 minutes. (Same as: Protonix) atorvastati No Notes: Heath bobo n 6-28 (Same as: l 14:00: Lipitor) [place] citalopram No Notes: Memor ia 6-28 (Same As: l 14:00: CeleXA) [place] Protonix No Notes: For Mem oria 6-28 IV push l 14:00: reconstitu [place] 00 te with 10 ml 0.9% sodium chloride and push over 2 minutes. (Same as: Protonix) atorvastati No Notes: Heath bobo n 6-28 (Same as: l 14:00: Lipitor) [place] citalopram No Notes: Memor ia 6-28 (Same As: l 14:00: CeleXA) [place] Protonix No Notes: For Mem oria 6-28 IV push l 14:00: reconstitu [place] 00 te with 10 ml 0.9% sodium [...] ia 6-28 (Same As: l 14:00: CeleXA) [place] Protonix No Notes: For Mem oria 6-28 IV push l 14:00: reconstitu [place] 00 te with 10 ml 0.9% sodium chloride and push over 2 minutes. (Same as: Protonix) atorvastati No Notes: Heath bobo n 6-28 (Same as: l 14:00: Lipitor) [place] 00 citalopram No Notes: Memor ia 6-28 (Same As: l 14:00: CeleXA) [place] 00 Protonix No Notes: For Mem oria 6-28 IV push l 14:00: reconstitu [place] 00 te with 10 ml 0.9% sodium chloride and push over 2 minutes. (Same as: Protonix) atorvastati No Notes: Heath bobo n 6-28 (Same as: l 14:00: Lipitor) [place] citalopram No Notes: Memor ia 6-28 (Same As: l 14:00: CeleXA) [place] dexamethaso No Notes: Heath bobo ne 6-28 Concentrat l 06:42: ion: [place] 00 4mg/ml dexamethaso No Notes: Heath bobo [...] bobo ne 6-28 Concentrat l 06:42: ion: [place] 00 4mg/ml dexamethaso 2021-0 No Notes: Heath bobo ne 6-28 Concentrat l 06:42: ion: [place] 00 4mg/ml dexamethaso 2021-0 No Notes: Heath [...] bobo ne 6-28 Concentrat l 06:42: ion: [place] 00 4mg/ml D1W No 125 mL, Memoria [...] CDT, PRN Blood Glucose Results, 0 D10W 2022-0 No 125 mL, [facility]oria (bolus) IV 6- Rate: 999 l 06:31: ml/hr, [place] 00 Infuse over: 0.1 hr, Route: IVPB, Total Volume: 125, Start date: 11/25/21 1:31:00 CDT, Duration: 30 day, Stop date: 12/25/21 1:30:00 CDT, PRN Blood Glucose Results, 0 D12021-0 No 125 mL, [facility] (bolus) IV 6- Rate: 999 l 06:31: ml/hr, [place] 00 Infuse over: 0.1 hr, Route: IVPB, Total Volume: 125, Start date: 11/25/21 1:31:00 CDT, Duration: 30 day, Stop date: 12/25/21 1:30:00 CDT, PRN Blood Glucose Results, 0 D12021-0 No 125 mL, [facility] (bolus) IV 6- Rate: 999 l 06:31: ml/hr, [place] 00 Infuse over: 0.1 hr, Route: IVPB, Total Volume: 125, Start date: 11/25/21 1:31:00 CDT, Duration: 30 day, Stop date: 12/25/21 1:30:00 CDT, PRN Blood Glucose Results, 0 D12021-0 No 125 mL, [facility] (bolus) IV 6- Rate: 999 l 06:31: ml/hr, [place] 00 Infuse over: 0.1 hr, Route: IVPB, Total Volume: 125, Start date: 11/25/21 1:31:00 CDT, Duration: 30 day, Stop date: 12/25/21 1:30:00 CDT, PRN Blood Glucose Results, 0 D1W 2021-0 No 125 mL, [facility] (bolus) IV 6-28 Rate: 999 l 06:31: ml/hr, [place] 00 Infuse over: 0.1 hr, Route: IVPB, [...] IV - Rate: 999 l 06:31: ml/hr, [place] 00 Infuse over: 0.1 hr, Route: IVPB, [...] IV 6-28 Rate: 999 l 06:23: ml/hr, [place] 00 Infuse over: 0.3 hr, Route: IVPB, [...] IV 6-28 Rate: 999 l 06:23: ml/hr, [place] 00 Infuse over: 0.3 hr, Route: IVPB, Total Volume: 250, Start date: 11/25/21 1:23:00 CDT, Duration: 30 day, Stop date: 12/25/21 1:22:00 CDT, PRN Blood Glucose Results, 0 D10W 2021-0 No 250 mL, [facility] (bolus) IV 6-28 Rate: 999 l 06:23: ml/hr, [place] 00 Infuse over: 0.3 hr, Route: IVPB, Total Volume: 250, Start date: 11/25/21 1:23:00 CDT, Duration: 30 day, Stop date: 12/25/21 1:22:00 CDT, PRN Blood Glucose Results, 0 D10W 2021-0 No 250 mL, [facility] (bolus) IV 6-28 Rate: 999 l 06:23: ml/hr, [place] 00 Infuse over: 0.3 hr, Route: IVPB, Total Volume: 250, Start date: 11/25/21 1:23:00 CDT, Duration: 30 day, Stop date: 12/25/21 1:22:00 CDT, PRN Blood Glucose Results, 0 D10W 2021-0 No 250 mL, [facility] (bolus) IV 6-28 Rate: 999 l 06:23: ml/hr, [place] 00 Infuse over: 0.3 hr, Route: IVPB, [...] IV 6-28 Rate: 999 l 06:23: ml/hr, [place] 00 Infuse over: 0.3 hr, Route: IVPB, [...] Syringe 11-25 Route: l (D50W) 05:55: IVP, [place] 00 Dosing Weight 94.545, kg, PRN, PRN Blood Glucose Results, Start date: 11/25/21 0:55:00 CDT, Duration: 30 day, Stop date: 12/25/21 0:54:00 CDT glucagon 2021-0 No 1 mg, [facility] 11-25 Route: IM, l 05:55: Drug form: [place] 00 PDR/INJ, PRN, Dosing Weight 94.545, kg, [...] Syringe 11-25 Route: l (D50W) 05:55: IVP, [place] 00 Dosing Weight 94.545, kg, PRN, PRN Blood Glucose Results, Start date: 11/25/21 0:55:00 CDT, Duration: 30 day, Stop date: 12/25/21 0:54:00 CDT glucagon 2021-0 No 1 mg, [facility] 11-25 Route: IM, l 05:55: Drug form: [place] 00 PDR/INJ, PRN, Dosing Weight 94.545, kg, PRN Blood Glucose Results, Start date: 11/25/21 0:55:00 CDT, Duration: 30 day, Stop date: 12/25/21 0:54:00 CDT, 0 insulin 2021-0 No Notes: [facility] lispro -28 (Same as: l 05:55: Humalog) [place] 00 Roll in palms of hands gently; [...] Syringe 11-25 Route: l (D50W) 05:55: IVP, [place] Dosing Weight 94.545, kg, PRN, PRN Blood Glucose Results, Start date: 11/25/21 0:55:00 CDT, Duration: 30 day, Stop date: 12/25/21 0:54:00 CDT glucagon 2021-0 No 1 mg, [facility] 11-25 Route: IM, l 05:55: Drug form: [place] 00 PDR/INJ, PRN, Dosing Weight 94.545, kg, [...] 11-25 Route: IM, l 05:55: Drug form: [place] 00 PDR/INJ, PRN, Dosing Weight 94.545, kg, PRN Blood Glucose Results, Start date: 11/25/21 0:55:00 CDT, Duration: 30 day, Stop date: 12/25/21 0:54:00 CDT, 0 insulin 2021-0 No Notes: [facility] lispro 6-28 (Same as: l 05:55: Humalog) [place] 00 Roll in palms of hands gently; Do not shake vigorously . WASTE: F/P - Black; E - Municipal Trash Bin Stable for 28 days at room temperatur e. Expires in days from ____Date Dextrose 2-0 No 25 mL, [facility] 50% Syringe 11-25 Route: l (D50W) 05:55: IVP, [place] 00 Dosing Weight 94.545, kg, PRN, PRN [...] Syringe 11-25 Route: l (D50W) 05:55: IVP, [place] 00 Dosing Weight 94.545, kg, PRN, PRN Blood Glucose Results, Start date: 11/25/21 0:55:00 CDT, Duration: 30 day, Stop date: 12/25/21 0:54:00 CDT glucagon 2021-0 No 1 mg, [facility] 11-25 Route: IM, l 05:55: Drug form: [place] 00 PDR/INJ, PRN, Dosing Weight 94.545, kg, [...] 11-25 Route: IM, l 05:55: Drug form: [place] 00 PDR/INJ, PRN, Dosing Weight 94.545, kg, [...] Syringe 11-25 Route: l (D50W) 05:55: IVP, [place] 00 Dosing Weight 94.545, kg, PRN, PRN [...] lispro 6-28 (Same as: l 05:55: Humalog) [place] 00 Roll in palms of hands gently; Do not shake vigorously . WASTE: F/P - Black; E - Municipal Trash Bin Stable for 28 days at room temperatur e. Expires in days from ____Date Dextrose 2021-0 No 25 mL, [facility] 50% Syringe 11-25 Route: l (D50W) 05:55: IVP, [place] 00 Dosing Weight 94.545, kg, PRN, PRN [...] 11-25 not exceed l 05:54: 4 gm/day. [place] (Same as: Tylenol) salon No Notes: Memoria [...] Perles 6-28 (Same As: l 05:54: Tessalon [place] 00 Perles) "Do Not Crush" simethicone No [...] 6-28 not exceed l 05:54: 4 gm/day. [place] 00 (Same as: Tylenol) No Notes: [facility] Perles 6-28 (Same As: l 05:54: Tessalon [place] 00 Perles) "Do Not Crush" simethicone No Notes: Heath bobo 6-28 (Same as: l 05:54: Mylicon) senna 8.6 No Notes: Memori a mg oral 6-28 (Same as: l tablet 05:54: Senokot) [place] 00 Colace 50 No Notes: Memori a mg oral 6-28 (Same as: l capsule 05:54: Colace) [place] 00 Zofran No Notes: [facility]oria 6-28 (Same as: l 05:54: Zofran) [place] 00 MEDICATION WASTE Product Size: 4 mg Product Wasted: ___ mg Tylenol No Notes: Do Memor ia 6-28 not exceed l 05:54: 4 gm/day. [place] (Same as: Tylenol) Tessalon No Notes: Memoria [...] Perles 6-28 (Same As: l 05:54: Tessalon [place] 00 Perles) "Do Not Crush" simethicone No [...] l 05:54: 4 gm/day. (Same as: Tylenol) sal2021 No Notes: Memoria [...] 6-28 not exceed l 05:54: 4 gm/day. [place] 00 (Same as: Tylenol) Tessalon No Notes: Memoria Perles 6-28 (Same As: l 05:54: Tessalon [place] 00 Perles) "Do Not Crush" simethicone No [...] 6-28 not exceed l 05:54: 4 gm/day. [place] 00 (Same as: Tylenol) salon No Notes: [facility]oria Perles 6-28 (Same As: l 05:54: Tessalon [place] 00 Perles) "Do Not Crush" simethicone No [...] Perles 6-28 (Same As: l 05:54: Tessalon [place] 00 Perles) "Do Not Crush" simethicone No [...] 40 mg 6-28 Refill(s) l oral 05:53: [place] enteric 00 coated tablet clindamycin Yes 0 Memori a 300 mg oral 6-28 Refill(s) l capsule 05:53: 00 clopidogrel No 0 Memori a 75 mg oral 6-28 Refill(s) l tablet 05:53: [place] 00 atorvastati Yes 0 Memori a n 40 mg 6-28 Refill(s) l oral tablet 05:53: Thomas n Basaglar Yes 0 [facility] KwikPen 100 6-28 Refill(s) l units/mL 05:53: [place] subcutaneou 00 s solution Dialyvite Yes 0 [...] units/mL 05:53: utaneou 00 s solution Dialyvite 0 Yes 0 [...] l oral 05:53: 00 coated tablet clindamycin 0 Yes 0 Memori a 300 mg oral 6-28 Refill(s) l capsule 05:53: clopidogrel 2021-0 No 0 Memori a 75 mg oral 6-28 Refill(s) l tablet 05:53: atorvastati 2021-0 Yes 0 Memori a n 40 mg 6-28 Refill(s) l oral tablet 05:53: Basaglar 0 Yes 0 [facility] KwikPen 100 6-28 Refill(s) l units/mL 05:53: [facility] s solution Dialyvite 0 Yes 0 [...] oral 6-28 Refill(s) l tablet 05:53: cefTRIAXone 0 No Notes: Heath bobo + [...] oria 6-28 IV push l 03:37: reconstitu [place] 00 te with 10 ml 0.9% sodium chloride and push over 2 minutes. (Same as: Protonix) Protonix 2021-0 No Notes: For Mem oria 6-28 IV push l 03:37: reconstitu [place] 00 te with 10 ml 0.9% sodium [...] oria 6-28 IV push l 03:37: reconstitu [place] 00 te with 10 ml 0.9% sodium chloride and push over 2 minutes. (Same as: Protonix) Protonix No Notes: For Mem oria 6-28 IV push l 03:37: reconstitu [place] 00 te with 10 ml 0.9% sodium chloride and push over 2 minutes. (Same as: Protonix) Protonix No Notes: For Mem oria 6-28 IV push l 03:37: reconstitu [place] 00 te with 10 ml 0.9% sodium chloride and push over 2 minutes. (Same as: Protonix) Protonix No Notes: For Mem oria 6-28 IV push l 03:37: reconstitu [place] 00 te with 10 ml 0.9% sodium chloride and push over 2 minutes. (Same as: Protonix) Protonix No Notes: For Mem oria 6-28 IV push l 03:37: reconstitu [place] 00 te with 10 ml 0.9% sodium chloride and push over 2 minutes. (Same as: Protonix) Advair HFA Advair HFA 2019-0 Yes [place] 2 puffs Common 1-15 [facility] 00:00: - [facility] 00 [facility] 2018- Yes La 1 needle Common Ultra-Fine Ultra-Fine 0-09 [facility] with Sp jerome Christina Pen Christina Pen 00:00: Basaglar - [facility] [place] 00 [facility] 2018-05 No QD BD Ultra-Fine Ultra-Fine 0-09 Ultra-Fine Christina Pen Christina Pen 00:00: Christina Pen [place] 4mm [place] 4mm 00 [place] x 32Gm x 32Gm 4mm x 32Gm [facility] 2018- No QD BD Ultra-Fine Ultra-Fine 0-09 Ultra-Fine Christina Pen Christina Pen 00:00: Christina Pen [place] 4mm [place] 4mm 00 [place] x 32Gm x 32Gm 4mm x 32Gm [facility] 2018- No QD BD Ultra-Fine Ultra-Fine 0-09 Ultra-Fine Christina Pen Christina Pen 00:00: Christina Pen [place] 4mm [place] 4mm 00 [place] x 32Gm x 32Gm 4mm x 32Gm [facility] 2018-05 No QD BD Ultra-Fine Ultra-Fine 0-09 Ultra-Fine Christina Pen Christina Pen 00:00: Christina Pen [place] 4mm [place] 4mm 00 [place] x 32Gm x 32Gm 4mm x 32Gm [facility] 2018-05 No QD BD Ultra-Fine Ultra-Fine 0-09 Ultra-Fine Christina Pen Christina Pen 00:00: Christina Pen [place] 4mm [place] 4mm 00 [place] x 32Gm x 32Gm 4mm x 32Gm [facility] 2018- No QD BD Ultra-Fine Ultra-Fine 0-09 Ultra-Fine Christina Pen Christina Pen 00:00: Christina Pen [place] 4mm [place] 4mm 00 [place] x 32Gm x 32Gm 4mm x 32Gm [facility] 2018-05 No QD BD Ultra-Fine Ultra-Fine 0-09 Ultra-Fine Christina Pen Christina Pen 00:00: Christina Pen [place] 4mm [place] 4mm 00 [place] x 32Gm x 32Gm 4mm x 32Gm [facility] 2018- No QD BD Ultra-Fine Ultra-Fine 0-09 Ultra-Fine Christina Pen Christina Pen 00:00: Christina Pen [place] 4mm [place] 4mm 00 [place] x 32Gm x 32Gm 4mm x 32Gm [facility] 2018- No QD BD Ultra-Fine Ultra-Fine 0-09 Ultra-Fine Christina Pen Christina Pen 00:00: Christina Pen [place] 4mm [place] 4mm 00 [place] x 32Gm x 32Gm 4mm x 32Gm [facility] 2018-05 No QD BD Ultra-Fine Ultra-Fine 0-09 Ultra-Fine Christina Pen Christina Pen 00:00: Christina Pen [place] 4mm [place] 4mm 00 [place] x 32Gm x 32Gm 4mm x 32Gm [facility] 2018- No QD BD Ultra-Fine Ultra-Fine 0-09 Ultra-Fine Christina Pen Christina Pen 00:00: Christina Pen [place] 4mm [place] 4mm 00 [place] x 32Gm x 32Gm 4mm x 32Gm [facility] 2018- No QD BD Ultra-Fine Ultra-Fine 0-09 Ultra-Fine Christina Pen Christina Pen 00:00: Christina Pen [place] 4mm [place] 4mm 00 [place] x 32Gm x 32Gm 4mm x 32Gm [facility] 2018- No QD BD Ultra-Fine Ultra-Fine 0-09 Ultra-Fine Christina Pen Christina Pen 00:00: Christina Pen [place] 4mm [place] 4mm 00 [place] x 32Gm x 32Gm 4mm x 32Gm [facility] 2018-05 No QD BD Ultra-Fine Ultra-Fine 0-09 Ultra-Fine Christina Pen Christina Pen 00:00: Christina Pen [place] 4mm [place] 4mm 00 [place] x 32Gm x 32Gm 4mm x 32Gm [facility] 2018-05 No QD BD Ultra-Fine Ultra-Fine 0-09 Ultra-Fine Christina Pen Christina Pen 00:00: Christina Pen [place] 4mm [place] 4mm 00 [place] x 32Gm x 32Gm 4mm x 32Gm [facility] 2018-05 No QD BD Ultra-Fine Ultra-Fine 0-09 Ultra-Fine Christina Pen Christina Pen 00:00: Christina Pen [place] 4mm [place] 4mm 00 [place] x 32Gm x 32Gm 4mm x 32Gm [facility] 2018-05 No QD BD Ultra-Fine Ultra-Fine 0-09 Ultra-Fine Christina Pen Christina Pen 00:00: Christina Pen [place] 4mm [place] 4mm 00 [place] x 32Gm x 32Gm 4mm x 32Gm [facility] 2018-05 No QD BD Ultra-Fine Ultra-Fine 0-09 Ultra-Fine Christina Pen Christina Pen 00:00: Christina Pen [place] 4mm [place] 4mm 00 [place] x 32Gm x 32Gm 4mm x 32Gm [facility] 2018- No QD BD Ultra-Fine Ultra-Fine 0-09 Ultra-Fine Christina Pen Christina Pen 00:00: Christina Pen [place] 4mm [place] 4mm 00 [place] x 32Gm x 32Gm 4mm x 32Gm [facility] 2018- No QD BD Ultra-Fine Ultra-Fine 0-09 Ultra-Fine Christina Pen Christina Pen 00:00: Christina Pen [place] 4mm [place] 4mm 00 [place] x 32Gm x 32Gm 4mm x 32Gm BD BD 2018-05 No QD BD Ultra-Fine Ultra-Fine 0-09 Ultra-Fine Christina Pen Christian Pen 00:00: Christina Pen [place] 4mm [place] 4mm 00 [place] x 32Gm x 32Gm 4mm x 32Gm BD BD 2018-05 No QD BD Ultra-Fine Ultra-Fine 0-09 Ultra-Fine Christina Pen Christina Pen 00:00: Christina Pen [place] 4mm [place] 4mm 00 [place] x 32Gm x 32Gm 4mm x 32Gm Basaglar Basaglar No QD Basaglar KwikPen 100 [...] Dexcom G6 Dexcom G6 No Dexcom G6 Director Food Safety - Director Food Safety - Director Food Safety - Atorvastati Atorvastati No Atorvastat n Calcium [...] 230- 230- } 230-21 MCG/ACT MCG/ACT MCG/ACT Tums E-X [...] t_as_ne Laxative 5 MG MG eded} MG Carvedilol Carvedilol No Carvedilol 12.5 MG 12.5 MG 12.5 MG Lantus Lantus No Lantus SoloStar SoloStar SoloStar 100 UNIT/ML 100 UNIT/ML 100 UNIT/ML Metoprolol Metoprolol No BID Metoprolol Tartrate 25 Tartrate 25 Tartrate MG MG 25 MG PreserVisio PreserVisio No PreserVisi n AREDS - n AREDS - on AREDS - Citalopram Citalopram No Citalopram Hydrobromid Hydrobromid Hydrobromi e 20 MG e 20 MG de 20 MG Dialyvite Dialyvite No Dialyvite 800 800 800 Pantoprazol Pantoprazol No 1{table QD Pantoprazo e Sodium 40 e Sodium 40 t} le Sodium MG MG 40 MG Citalopram Citalopram No 1{table QD Citalopram Hydrobromid Hydrobromid t} Hydrobromi e 20 MG e 20 MG de 20 MG Advair HFA Advair HFA No 2{puffs BID Advair HFA 230-21 230-21 } 230-21 MCG/ACT MCG/ACT MCG/ACT Tums E-X Tums E-X No 1{table TID Tums E-X 750 750 MG 750 750 MG t} 750 750 MG Multivitami Multivitami No Multivitam n Adult - n Adult - in Adult - Sevelamer Sevelamer No 1{table QID Sevelamer Carbonate Carbonate t_with_ Carbonate 800 MG 800 MG meals} 800 MG Stool Stool No Stool Softener Softener Softener Atorvastati Atorvastati No 1{table QD Atorvastat n Calcium n Calcium t} in Calcium 40 MG 40 MG 40 MG Gentle Gentle No 1{table QD Gentle Laxative 5 Laxative 5 t_as_ne Laxative 5 MG MG eded} MG Carvedilol Carvedilol No Carvedilol 12.5 MG 12.5 MG 12.5 MG Lantus Lantus No Lantus SoloStar SoloStar SoloStar 100 UNIT/ML 100 UNIT/ML 100 UNIT/ML Metoprolol Metoprolol No BID Metoprolol Tartrate 25 Tartrate 25 Tartrate MG MG 25 MG PreserVisio PreserVisio No PreserVisi n AREDS - n AREDS - on AREDS - Citalopram Citalopram No Citalopram Hydrobromid Hydrobromid Hydrobromi e 20 MG e 20 MG de 20 MG Dialyvite Dialyvite No Dialyvite 800 800 800 Pantoprazol Pantoprazol No 1{table QD Pantoprazo e Sodium 40 e Sodium 40 t} le Sodium MG MG 40 MG Citalopram Citalopram No 1{table QD Citalopram Hydrobromid Hydrobromid t} Hydrobromi e 20 MG e 20 MG de 20 MG Advair HFA Advair HFA No 2{puffs BID Advair HFA 230-21 230-21 } 230-21 MCG/ACT MCG/ACT MCG/ACT Tums E-X Tums E-X No 1{table TID Tums E-X 750 750 MG 750 750 MG t} 750 750 MG Multivitami Multivitami No Multivitam n Adult - n Adult - in Adult - Sevelamer Sevelamer No 1{table QID Sevelamer Carbonate Carbonate t_with_ Carbonate 800 MG 800 MG meals} 800 MG Stool Stool No Stool Softener Softener Softener Atorvastati Atorvastati No 1{table QD Atorvastat n Calcium n Calcium t} in Calcium 40 MG 40 MG 40 MG Aspirin Aspirin No Aspirin Contour Contour [...] ommon 750 750 [facility] Basaglar Basaglar Yes La 52 Units C ommon KwikPen KwikPen [facility] [place] PreserVisio PreserVisio Yes La as Common n AREDS n AREDS [facility] directed [facility] Citalopram Citalopram Yes La 1 tablet Common Hydrobromid Hydrobromid [facility] e e [facility] Stool Stool Yes La not Common Softener Softener [facility] defined Spi rit [facility] Gentle Gentle Yes La 1 tablet Commo n Laxative Laxative [facility] as needed S pirit [facility] Atorvastati Atorvastati Yes La 1 tablet Common n Calcium n Calcium Fortune [facility] Contour Contour Yes La USE 3 Common Test Test Fortune TIMES A [facility] Eliquis 2.5 Eliquis 2.5 Yes La 1 tablet Common mg mg [facility] [place] Multivitami Multivitami Yes La as Common n Adult n Adult [facility] directed [facility] Carvedilol Carvedilol Yes La TAKE 1 Common [facility] TABLET BY Spirit MOUTH - [facility] TWICE A DAY ON [facility] Medical [facility] Atorvastati Atorvastati Yes La TAKE 1 Common n Calcium n Calcium [facility] TABLET BY [facility] MOUTH - [facility] EVERY DAY [facility] GlipiZIDE GlipiZIDE Yes La 1 tablet Common [facility] [place] Basaglar Basaglar Yes La 50 Units C ommon KwikPen KwikPen [facility] [place] Advair HFA Advair HFA No 2{puffs BID [...] Dexcom G6 Dexcom G6 No Dexcom G6 Director Food Safety - Director Food Safety - Director Food Safety - Carvedilol Carvedilol No Carvedilol 12.5 MG [...] Dexcom G6 Dexcom G6 No Dexcom G6 Director Food Safety - Director Food Safety - Director Food Safety - glipiZIDE 5 glipiZIDE 5 No 1{table [...] Dexcom G6 Dexcom G6 No Dexcom G6 Director Food Safety - Director Food Safety - Director Food Safety - Ipratropium Ipratropium No Ipratropiu -Albuterol -Albuterol [...] Dexcom G6 Dexcom G6 No Dexcom G6 Director Food Safety - Director Food Safety - Director Food Safety - Gentle Gentle No 1{table QD Gentle [...] Dexcom G6 Dexcom G6 No Dexcom G6 Director Food Safety - Director Food Safety - Director Food Safety - PreserVisio PreserVisio No PreserVisi n AREDS [...] Dexcom G6 Dexcom G6 No Dexcom G6 Director Food Safety - Director Food Safety - Director Food Safety - Advair HFA Advair HFA No 2{puffs [...] Dexcom G6 Dexcom G6 No Dexcom G6 Director Food Safety - Director Food Safety - Director Food Safety - Advair HFA Advair HFA No 2{puffs [...] Dexcom G6 Dexcom G6 No Dexcom G6 Director Food Safety - Director Food Safety - Director Food Safety - Advair HFA Advair HFA No 2{puffs [...] Dexcom G6 Dexcom G6 No Dexcom G6 Director Food Safety - Director Food Safety - Director Food Safety - Atorvastati Atorvastati No 1{table QD Atorvastat [...] Dexcom G6 Dexcom G6 No Dexcom G6 Director Food Safety - Director Food Safety - Director Food Safety - Atorvastati Atorvastati No Atorvastat n Calcium [...] FluAD 2021-03-30 Completed [facility] 13:13:00 - [facility] FluAD FluAD 2021-03-30 Completed [facility] 13:13:00 - [facility] FluAD FluAD 2021-03-30 Completed [facility] 13:13:00 - [facility] FluAD FluAD 2021-03-30 Completed [facility] 13:13:00 - [facility] FluAD FluAD 2021-03-30 [facility] 13:13:00 - [facility] FluAD FluAD 2021-03-30 Completed [facility] 13:13:00 - [facility] FluAD FluAD 2021-03-30 Completed [facility] 13[facility]13:00 - [facility] FluAD FluAD 2021-03-30 Completed [facility] 13:13:00 - [facility] FluAD FluAD 2021-03-30 Completed [facility] 13:13:00 - [facility] FluAD FluAD 2021-03-30 Completed [facility] 13:13:00 - [facility] FluAD FluAD 2021-03-30 Completed [facility] 13:13:00 [facility] FluAD FluAD 2021-03-30 Completed [facility] 13:13:00 - [facility] FluAD FluAD 2021-03-30 Completed [facility] 13:13:00 - [facility] FluAD FluAD 2021-03-30 Completed [facility] 13:13:00 - [facility] FluAD FluAD 2021-03-30 Completed [facility] 13:13:00 - [facility] FluAD FluAD 2021-03-30 Completed [facility] 13:13:00 - [facility] FluAD FluAD 2021-03-30 Completed [facility] 13:13:00 [facility] FluAD FluAD 2021-03-30 Completed [facility] 13:13:00 [facility] FluAD FluAD 2021-03-30 Completed [facility] 13:13:00 [facility] FluAD FluAD 2021-03-30 Completed [facility] 13:13:00 [facility] FluAD FluAD 2021-03-30 [facility]pleted [facility] 13:13:00 [facility] FluAD FluAD 2021-03-30 [facility]pleted [facility] 13:13:00 [facility] COVID-19 Vaccine COVID-19 Vaccine 2020-08-19 [facility] ([employer]) 09:17: [facility] COVID-19 Vaccine COVID-19 Vaccine 2020-08-19 [facility] ([employer]) 09:17:00 [facility] COVID-19 Vaccine COVID-19 Vaccine 2020-08-19 Completed [facility] (Andrea) 09:17:00 - [facility] COVID-19 Vaccine COVID-19 Vaccine 2020-08-19 [facility] (Andrea) 09:17:00 - [facility] COVID-19 Vaccine COVID-19 Vaccine 2020-08-19 [facility]pleted [facility] (Andrea) 09:17:00 - [facility] COVID-19 Vaccine COVID-19 Vaccine 2020-08-19 [facility]pleted [facility] (Andrea) 09:17:00 [facility] COVID-19 Vaccine COVID-19 Vaccine 2020-08-19 [facility] (Andrea) 09:17:00 [facility] COVID-19 Vaccine COVID-19 Vaccine 2020-08-19 Completed [facility] (Andrea) 09:17:00 [facility] COVID-19 Vaccine COVID-19 Vaccine 2020-08-19 Completed [facility] (Andrea) 09:17:00 [facility] COVID-19 Vaccine COVID-19 Vaccine 2020-08-19 [facility]pleted [facility] (Andrea) 09:17:00 [facility] COVID-19 Vaccine COVID-19 Vaccine 2020-08-19 Completed [facility] (Andrea) 09:17:00 [facility] COVID-19 Vaccine COVID-19 Vaccine 2020-08-19 Completed [facility] (Andrea) 09:17:00 [facility] COVID-19 Vaccine COVID-19 Vaccine 2020-08-19 Completed [facility] (Andrea) 09:17:00 [facility] COVID-19 Vaccine COVID-19 Vaccine 2020-08-19 Completed [facility] (Andrea) 09:17:00 [facility] COVID-19 Vaccine COVID-19 Vaccine 2020-08-19 Completed [facility] (Andrea) 09:17:00 - [facility] COVID-19 Vaccine COVID-19 Vaccine 2020-08-19 Completed [facility] (Andrea) 09:17:00 - [facility] COVID-19 Vaccine COVID-19 Vaccine 2020-08-19 Completed [facility] (Andrea) 09:17:00 [facility] COVID-19 Vaccine COVID-19 Vaccine 2020-08-19 Completed [facility] (Andrea) 09:17:00 - [facility] COVID-19 Vaccine COVID-19 Vaccine 2020-08-19 Completed [facility] (Andrea) 09:17:00 [facility] COVID-19 Vaccine COVID-19 Vaccine 2020-08-19 Completed [facility] (Andrea) 09:17:00 [facility] COVID-19 Vaccine COVID-19 Vaccine 2020-08-19 Completed [facility] (Andrea) 09:17:00 - [facility] COVID-19 Vaccine COVID-19 Vaccine 2020-08-19 Completed [facility] (Andrea) 09:17:00 [facility] COVID-19 Vaccine COVID-19 Vaccine 2020-08-19 Completed [facility] (Andrea) 09:17:00 [facility] COVID-19 Vaccine COVID-19 Vaccine 2020-08-19 Completed [facility] (Andrea) 09:17:00 [facility] Vital Signs Vital Name Observation Time Observation Value Comments Source Systolic blood 2022-10-31 17:36:00 132 mm[Hg] Univer sity of pressure [facility] Diastolic blood 2022-10-31 17:36:00 61 mm[Hg] Unive rsity of pressure [facility] Heart rate 2022-10-31 17:36:00 67 /min [facility] Respiratory rate 2022-10-31 17:36:00 19 /min [facility] in 2022-10-31 17:36:00 100 /min [facility] blood by [facility] Pulse oximetry Branch Body temperature 2022-10-31 13:59:00 37.39 [facility] ersity of [facility] Body height 2022-10-31 13:59:00 177.8 cm [facility] Body weight 2022-10-31 13:59:00 71.668 kg [facility] BMI 2022-10-31 13:59:00 22.67 kg/m2 [facility] Heart rate 2022-10-15 19:00:00 92 /min [facility] Respiratory rate 2022-10-15 19:00:00 13 /[facility] Oxygen saturation in 2022-10-15 19:00:00 86 /min [place] [facility] Arterial blood by [facility] Pulse oximetry Branch Systolic blood 2022-10-15 17:00:00 144 mm[Hg] Univer sity of pressure [facility] Diastolic blood 2022-10-15 17:00:00 53 mm[Hg] Unive rsity of [facility] Body temperature 2022-10-15 16:08:00 37.44 [facility] ersity of [facility] Body weight 2022-10-15 14:00:00 70.489 kg [facility] BMI 2022-10-15 14:00:00 25.86 kg/m2 [facility] Body height 2022-10-10 19:00:00 165.1 cm [facility] height 2022-02-17 15:00:00 70 [in_i] [facility] weight 2022-02-17 15:00:00 208 [lb_av] [facility] temperature 2022-02-17 15:00:00 98.1 [degF] [facility] bmi 2022-02-17 15:00:00 29.84 kg/m2 [facility] blood pressure 2022-02-17 15:00:00 121 mm[Hg] [facility] - systolic [facility] blood pressure 2022-02-17 15:00:00 61 mm[Hg] [facility] - diastolic [facility] height 2022-01-06 14:30:00 70 [in_i] [facility] weight 2022-01-06 14:30:00 208 [lb_av] [facility] bmi 2022-01-06 14:30:00 29.84 kg/m2 [facility] blood pressure 2022-01-06 14:30:00 137 mm[Hg] [facility] - systolic [facility] blood pressure 2022-01-06 14:30:00 79 mm[Hg] [facility] - diastolic [facility] height 2022-01-01 11:40:00 70 [in_i] [facility] weight 2022-01-01 11:40:00 208 [lb_av] [facility] temperature 2022-01-01 11:40:00 98 [degF] [facility] bmi 2022-01-01 11:40:00 29.84 kg/m2 [facility] blood pressure 2022-01-01 11:40:00 138 mm[Hg] [facility] - systolic [facility] blood pressure 2022-01-01 11:40:00 82 mm[Hg] [facility] - diastolic [facility] height 2021-11-03 09:45:00 70 [in_i] [facility] weight 2021-11-03 09:45:00 210 [lb_av] [facility] bmi 2021-11-03 09:45:00 30.13 kg/m2 [facility] blood pressure 2021-11-03 09:45:00 144 mm[Hg] [facility] - systolic [facility] blood pressure 2021-11-03 09:45:00 86 mm[Hg] [facility] - diastolic [facility] height 2021-07-28 14:10:00 70 [in_i] [facility] weight 2021-07-28 14:10:00 211.8 [lb_av] [facility] [place] temperature 2021-07-28 14:10:00 97.5 [degF] [facility] bmi 2021-07-28 14:10:00 30.39 kg/m2 [facility] oximetry 2021-07-28 14:10:00 93 % [facility] respiratory rate 2021-07-28 14:10:00 16 /min [facility] [place] blood pressure 2021-07-28 14:10:00 134 mm[Hg] [facility] - systolic [facility] blood pressure 2021-07-28 14:10:00 63 mm[Hg] [facility] - diastolic [facility] height 2021-07-28 13:20:00 70 [in_i] [facility] weight 2021-07-28 13:20:00 211.8 [lb_av] [facility] temperature 2021-07-28 13:20:00 97.5 [degF] [facility] 2021-07-28 13:20:00 30.39 kg/m2 [facility] 2021-07-28 13:20:00 93 % [facility] respiratory rate 2021-07-28 13:20:00 16 /min [facility] [place] blood pressure 2021-07-28 13:20:00 134 mm[Hg] [facility] - systolic [facility] blood pressure 2021-07-28 13:20:00 62 mm[Hg] [facility] - diastolic [facility] height 2021-04-28 13:10:00 70 [in_i] [facility] 2021-04-28 13:10:00 215.9 [lb_av] [facility] temperature 2021-04-28 13:10:00 97.3 [degF] [facility] bmi 2021-04-28 13:10:00 30.98 kg/m2 [facility] oximetry 2021-04-28 13:10:00 95 % [facility] respiratory rate 2021-04-28 13:10:00 17 /min [facility] [place] blood pressure 2021-04-28 13:10:00 121 mm[Hg] [facility] - systolic [facility] blood pressure 2021-04-28 13:10:00 60 mm[Hg] [facility] - diastolic [facility] height 2021-03-12 09:30:00 70 [in_i] [facility] weight 2021-03-12 09:30:00 211.4 [lb_av] [facility] temperature 2021-03-12 09:30:00 97.7 [degF] [facility] bmi 2021-03-12 09:30:00 30.33 kg/m2 [facility] oximetry 2021-03-12 09:30:00 95 % [facility] respiratory rate 2021-03-12 09:30:00 16 /min [facility] [place] blood pressure 2021-03-12 09:30:00 132 mm[Hg] [facility] - systolic [facility] blood pressure 2021-03-12 09:30:00 67 mm[Hg] [facility] - diastolic [facility] Heart Rate 2022-01-02 21:14:00 Kimber Celeste Respitory Rate 2022-01-02 21:14:00 Anup Scott Systolic (mm Hg) 2022-01-02 21:14:00 Heath Celeste Diastolic (mm Hg) 2022-01-02 21:14:00 Mem orial [facility] Height 2022-01-02 17:28:00 167.64 cm [facility] BMI Calculated 2022-01-02 17:28:00 Anup al [facility] Weight 2022-01-02 [facility] 2022-01-02 17:28:00 Heath rial [place] Diastolic (mm Hg) 2022-01-02 17:28:00 [facility] Heart Rate 2022-01-02 17:28:00 [facility] Respitory Rate 2022-01-02 17:28:00 [facility] Temperature Oral (F) 2022-01-02 17:28:00 97.5 F [facility] Temperature Oral (F) 2021-12-17 00:00:00 98.0 F [facility] Heart Rate 2021-12-17 00:00:00 [facility] Respitory Rate 2021-12-17 00:00:00 [facility] Systolic (mm Hg) 2021-12-17 00:00:00 Heath rial [place] Diastolic (mm Hg) 2021-12-17 00:00:00 Mem [facility] Heart Rate 2021-12-16 21:00:00 [facility] Respitory Rate 2021-12-16 21:00:00 [facility]ori [facility] Systolic (mm Hg) 2021-12-16 21:00:00 Heath rial [place] Diastolic (mm Hg) 2021-12-16 21:00:00 Mem [facility] Temperature Oral (F) 2021-12-16 21:00:00 98.0 F [facility] Heart Rate 2021-12-16 20:20:00 [facility] Respitory Rate 2021-12-16 20:20:00 [facility] Systolic (mm Hg) 2021-12-16 20:20:00 Heath rial [place] Diastolic (mm Hg) 2021-12-16 20:20:00 Mem [facility] Temperature Oral (F) 2021-12-16 20:20:00 97.3 F [facility] Heart Rate 2021-12-15 08:58:06 [facility] Systolic (mm Hg) 2021-12-15 08:58:01 Heath rial [place] Diastolic (mm Hg) 2021-12-15 08:58:01 Mem [facility] Heart Rate 2021-12-15 08:58:01 [facility] Temperature Oral (F) 2021-12-15 08:57:27 98.2 F [facility] Temperature Oral (F) 2021-12-15 05:00:00 97.5 F [facility] Heart Rate 2021-12-15 05:00:00 [facility] Systolic (mm Hg) 2021-12-15 05:00:00 Heath rial [facility] Diastolic (mm Hg) 2021-12-15 05:00:00 [facility] Height 2021-12-15 03:03:00 177.8 cm [facility] Weight 2021-12-15 03:03:00 [facility] BMI Calculated 2021-12-15 03:03:00 [facility] Temperature Oral (F) 2021-12-15 01:20:46 97.4 F [facility] Systolic (mm Hg) 2021-12-15 01:20:42 Heath rial [place] Diastolic (mm Hg) 2021-12-15 01:20:42 [facility] Respitory Rate 2021-12-15 00:45:00 [facility] Height 2021-12-15 00:13:00 172.72 cm [facility] BMI Calculated 2021-12-15 00:13:00 [facility]ori [facility] [place] Weight 2021-12-15 00:13:00 [facility] Respitory Rate 2021-12-14 23:56:00 Memori [facility] [place] Height 2021-12-14 23:34:00 172.72 cm [facility] Weight 2021-12-14 23:34:00 [facility] Respitory Rate 2021-12-14 23:18:00 Memori [facility] [place] BMI Calculated 2021-12-14 19:29:00 [facility] Temperature Oral (F) 2021-12-04 14:04:00 97.9 F [facility] Heart Rate 2021-12-04 14:04:00 [facility] Respitory Rate 2021-12-04 14:04:00 [facility] [place] Systolic (mm Hg) 2021-12-04 14:04:00 Heath rial [place] Diastolic (mm Hg) 2021-12-04 14:04:00 Mem [facility] Temperature Oral (F) 2021-12-04 12:30:00 97.9 F [facility] Heart Rate 2021-12-04 12:30:00 [facility] Respitory Rate 2021-12-04 12:30:00 Memori [facility] [place] Systolic (mm Hg) 2021-12-04 12:30:00 Heath rial [place] Diastolic (mm Hg) 2021-12-04 12:30:00 Mem orial [place] Respitory Rate 2021-12-04 11:45:00 Memori [facility] Heart Rate 2021-12-04 11:45:00 [facility] Temperature Oral (F) 2021-12-04 11:45:00 98.4 F [facility] Systolic (mm Hg) 2021-12-04 04:57:00 Heath rial [place] Diastolic (mm Hg) 2021-12-04 04:57:00 Mem orial [place] Weight 2021-12-03 23:22:00 [facility] Respitory Rate 2021-11-27 00:01:00 Memori al [place] Heart Rate 2021-11-26 21:50:00 [facility] Respitory Rate 2021-11-26 21:50:00 Memori [facility] [place] Systolic (mm Hg) 2021-11-26 21:50:00 Heath rial [place] Diastolic (mm Hg) 2021-11-26 21:50:00 Mem [facility] Temperature Oral (F) 2021-11-26 18:40:00 98.0 F [facility] Heart Rate 2021-11-26 18:40:00 [facility] Respitory Rate 2021-11-26 18:40:00 Memori [facility] Systolic (mm Hg) 2021-11-26 18:40:00 Heath rial [facility] Diastolic (mm Hg) 2021-11-26 18:40:00 Mem [facility] Heart Rate 2021-11-26 16:41:35 [facility] Systolic (mm Hg) 2021-11-26 16:41:27 Heath rial [place] Diastolic (mm Hg) 2021-11-26 16:41:27 [facility] Temperature Oral (F) 2021-11-26 16:40:28 98.4 F [facility] Temperature Oral (F) 2021-11-26 13:00:17 98.3 F [facility] Height 2021-11-25 03:24:00 177.8 cm [facility] BMI Calculated 2021-11-25 03:24:00 Anup Scott Weight 2021-11-25 03:24:00 [facility] Procedures Procedure Date / Time Performing Clinician Source Performed CT ABDOMEN PELVIS WO 2022-10-31 14:52:20 Ronnie Ayala [facility] CONTRAST Medical Branch CT THORAX WO CONTRAST 2022-10-31 14:52:20 Ronnie Ayala [facility] Medical Echo LIPASE 2022-10-31 14:22:00 Ronnie Ayala [facility] COMP. METABOLIC PANEL 2022-10-31 14:22:00 Ronnie Ayala [facility] ([id number]) Medical Echo CBC WITH DIFF 2022-10-31 14:22:00 Ronnie Ayala [facility] NOTICE OF PRIVACY 2022-10-31 13:54:24 Doctor Unassigned, [facility] PRACTICES [facility] CONSENT/REFUSAL FOR 2022-10-31 13:53:28 Doctor Unassigned, [facility] DIAGNOSIS AND TREATMENT [facility] [facility] POCT GLUCOSE 2022-10-15 16:16:00 Dominic [facility] (AUTOMATED) [facility] XR CHEST 1 VW 2022-10-15 14:27:00 Abdoul [facility] POCT GLUCOSE 2022-10-15 12:24:00 [facility] (AUTOMATED) [facility] BASIC METABOLIC PANEL 2022-10-15 09:26:00 Marianna Barbour [facility] (NA, K, CL, CO2, Medical Echo GLUCOSE, BUN, CREATININE, CA) CBC WITH DIFF 2022-10-15 09:26:00 Marianna Barbour [facility] PREPARE PACKED RBC 2022-10-15 05:15:09 Anita Sanchez [facility] POCT GLUCOSE 2022-10-15 01:54:00 Dominic [facility] (AUTOMATED) Medical Echo XR CHEST 1 VW 2022-10-15 01:09:38 Abdoul [facility] IR THORACENTESIS WITH 2022-10-14 23:00:51 Marianna Barbour [facility] IMAGING Medical Branch GLUCOSE BODY FLUID 2022-10-14 22:53:00 Marianna Barbour [facility] T.PROTEIN BODY FLUID 2022-10-14 22:53:00 Marianna Barbour [facility] BODY FLUID DIRECT COUNT 2022-10-14 22:53:00 Marianna Barbour [facility] BODY FLUID 2022-10-14 22:53:00 Marianna Barbour [facility] CULTURE(AEROBIC/ANAEROB [facility] IC) LDH TOTAL BODY FLUID 2022-10-14 22:53:00 Marianna Barbour [facility] XR CHEST 1 VW 2022-10-14 22:38:00 Josi Schreiber [facility] POCT GLUCOSE 2022-10-14 21:38:00 Mine Mosqueda [facility] (AUTOMATED) [facility] HEPATITIS B SURFACE 2022-10-14 19:06:00 Anita Sanchez [facility] ANTIBODY [facility] HEPATITIS B SURFACE 2022-10-14 19:06:00 Anita Sanchez [facility] ANTIGEN [facility] POCT GLUCOSE 2022-10-14 16:36:00 Mine Mosqueda [facility] (AUTOMATED) [facility] POCT GLUCOSE 2022-10-14 12:50:00 Mine Mosqueda [facility] (AUTOMATED) [facility] Branch PHOSPHORUS 2022-10-14 08:27:00 Mine Mosqueda [facility] MAGNESIUM 2022-10-14 08:27:00 Mine Mosqueda [facility] BASIC METABOLIC PANEL 2022-10-14 08:27:00 Mine Mosqueda [facility] (NA, K, CL, CO2, Medical Echo GLUCOSE, BUN, CREATININE, CA) VANCOMYCIN TROUGH 2022-10-14 08:27:00 Dahiana Albert [facility] CBC WITH DIFF 2022-10-14 08:27:00 Mine Mosqueda [facility] DISCLOSURE AND CONSENT, 2022-10-14 05:01:00 Doctor Unassigned, [facility] MEDICAL AND SURGICAL [place] [facility] count includes the [facility] PROCEDURES POCT GLUCOSE 2022-10-14 03:13:00 Dominic[facility] (AUTOMATED) [facility] Branch POCT GLUCOSE 2022-10-13 21:41:00 [facility] (AUTOMATED) Medical Branch POCT GLUCOSE 2022-10-13 16:25:00 Domin[facility] (AUTOMATED) [facility] Branch POCT GLUCOSE 2022-10-13 12:34:00 [facility] (AUTOMATED) [facility] BASIC METABOLIC PANEL 2022-10-13 09:16:00 Mine Mosqueda [facility] (NA, K, CL, CO2, Medical Branch GLUCOSE, BUN, CREATININE, CA) CBC WITH DIFF 2022-10-13 09:16:00 Dominic [facility] POCT GLUCOSE 2022-10-13 01:24:00 Dominic [facility] (AUTOMATED) [facility] POCT GLUCOSE 2022-10-12 21:23:00 [facility] (AUTOMATED) [facility] TRANSFUSE PACKED RBC 2022-10-12 18:39:[address] [facility] PREPARE PACKED RBC 2022-10-12 18:29:53 Luis A [facility] POCT GLUCOSE 2022-10-12 16:47:00 [facility] (AUTOMATED) [facility] BLOOD CULTURE SCREEN 2022-10-12 15:52:[address] [facility] BLOOD CULTURE SCREEN 2022-10-12 15:40:[address] [facility] XR CHEST 1 VW 2022-10-12 14:31:35 Dominic [facility] POCT GLUCOSE 2022-10-12 12:44:00 Dominic [facility] (AUTOMATED) [facility] Branch PHOSPHORUS 2022-10-12 09:58:00 Dominic [facility] MAGNESIUM 2022-10-12 09:58:00 Dominic [facility] TROPONIN I 2022-10-12 09:58:00 Tim Alejandro [facility] BASIC METABOLIC PANEL 2022-10-12 09:58:00 Mine Mosqueda [facility] (NA, K, CL, CO2, Medical Branch GLUCOSE, BUN, CREATININE, CA) LIPID PANEL 2022-10-12 09:58:00 Tim Alejandro [facility] ([id number])(TOTAL Medical Branch CHOLESTEROL, TRIGLYCERIDES, HDL) CBC WITH DIFF 2022-10-12 09:58:00 Dominic [facility] N-TERMINAL PRO-BNP 2022-10-12 09:58:00 Tim Alejandro [facility] POCT GLUCOSE 2022-10-12 06:42:00 Dominic [facility] (AUTOMATED) [facility] TROPONIN I 2022-10-12 03:10:00 Luis A [facility] POCT GLUCOSE 2022-10-12 01:19:00 [facility] (AUTOMATED) [facility] OCCULT (GUAIAC) BLOOD 2022-10-11 21:58:00 Mine Mosqueda [facility] POCT GLUCOSE 2022-10-11 21:19:00 Dominic [facility] (AUTOMATED) [facility] IRON 2022-10-11 18:20:00 Dominic [facility] TOTAL IRON BINDING 2022-10-11 18:20:00 Dominic [facility] CAPACITY [facility] TROPONIN I 2022-10-11 18:20:00 Luis A [facility] RETICULOCYTES AUTOMATED 2022-10-11 18:20:00 Dominic [facility] PROCALCITONIN 2022-10-11 18:20:00 Dominic [facility] POCT GLUCOSE 2022-10-11 16:58:00 [facility] (AUTOMATED) [facility] POCT GLUCOSE 2022-10-11 16:05:00 [facility] (AUTOMATED) [facility] ABORH CONFIRMATION (LAB 2022-10-11 15:23:00 Luis A [facility]) Medical Echo TROPONIN I 2022-10-11 15:08:00 Luis A [facility] POCT GLUCOSE 2022-10-11 14:22:00 [facility] (AUTOMATED) [facility] TRANSTHORACIC ECHO 2022-10-11 13:32:00 Luis A [facility] (TTE) COMPLETE Medical Branch POCT GLUCOSE 2022-10-11 13:04:00 [facility] (AUTOMATED) Medical Branch POCT GLUCOSE 2022-10-11 12:04:00 Domin[facility] (AUTOMATED) Medical Branch POCT GLUCOSE 2022-10-11 11:21:00 [facility] (AUTOMATED) [facility] Branch HB ABO GROUPING 2022-10-11 11:20:00 Luis A [facility] PHOSPHORUS 2022-10-11 09:41:00 Luis A [facility] MAGNESIUM 2022-10-11 09:41:00 Luis A [facility] TROPONIN I 2022-10-11 09:41:00 Luis A [facility] BASIC METABOLIC PANEL 2022-10-11 09:41:[address] [facility] (NA, K, CL, CO2, Medical Branch GLUCOSE, BUN, CREATININE, CA) CBC WITHOUT DIFF 2022-10-11 09:41:00 Luis A [facility] POCT GLUCOSE 2022-10-11 09:41:00 [facility] N-TERMINAL PRO-BNP 2022-10-11 09:41[facility] 2022-10-11 08:43:00 [facility] [facility] POCT GLUCOSE 2022-10-11 07:36:00 [facility] POCT GLUCOSE 2022-10-11 01:08:00 Mine Mosqueda [facility] (AUTOMATED) Medical Branch MRSA / MSSA SCREEN BY 2022-10-11 00:16:00 Mine Mosqueda [facility] PCRCATHIE [facility] CRITICAL CARE 2022-10-10 23:43:37 Fabian Fernandes [facility] Branch POCT GLUCOSE 2022-10-10 23:20:00 Mine Mosqueda [facility] (AUTOMATED) Medical Branch POCT GLUCOSE 2022-10-10 21:42:00 Fabian Fernandes [facility] (AUTOMATED) Medical Branch POCT GLUCOSE 2022-10-10 21:25:00 Fabian Fernandes [facility] (AUTOMATED) [facility] HB ECG ROUTINE & RHYTHM 2022-10-10 21:20:02 Fabian Fernandes [facility] STRIP [facility] AC PANEL 21 + LACTIC 2022-10-10 20:50:00 Fabian Fernandes [facility] ACID [facility] POCT GLUCOSE 2022-10-10 20:32:00 Fabian Fernandes [facility] (AUTOMATED) [facility] CT THORAX WO CONTRAST 2022-10-10 20:31:25 Fabian Fernandes [facility] CT ABDOMEN PELVIS WO 2022-10-10 20:30:49 Fabian Fernandes [facility] CONTRAST [facility] CT HEAD WO CONTRAST 2022-10-10 20:30:49 Fabian Fernandes [facility] POCT GLUCOSE 2022-10-10 19:43:00 Fabian Fernandes [facility] (AUTOMATED) Medical Echo XR CHEST 1 VW 2022-10-10 19:40:00 Fabian Fernandes [facility] BLOOD CULTURE SCREEN 2022-10-10 19:38:00 Fabian Fernandes [facility] BLOOD CULTURE WORKUP 2022-10-10 19:38:00 Fabian Fernandes [facility] GRAM POSITIVE BLOOD 2022-10-10 19:38:00 Fabian Fernandes [facility] PATHOGENS DNA [facility] PROBE-AEROBIC ASSIGNMENT OF BENEFITS 2022-10-10 19:11:20 Doctor Unassigned, [facility] [place] [facility] CONSENT/REFUSAL FOR 2022-10-10 19:10:59 Doctor Unassigned, [facility] DIAGNOSIS AND TREATMENT [place] [facility] TROPONIN I 2022-10-10 19:08:00 Dom [facility] COMP. METABOLIC PANEL 2022-10-10 19:08:00 Fabian Fernandes [facility] ([id number]) [facility] CBC WITH DIFF 2022-10-10 19:08:00 Fernandes [facility] GLYCOSYLATED HEMOGLOBIN 2022-10-10 19:08:00 Mine Mosqueda [facility] (A1C) [facility] N-TERMINAL PRO-BNP 2022-10-10 19:08:00 Fabian Fernandes [facility] POCT GLUCOSE 2022-10-10 18:58:00 [facility] (AUTOMATED) [facility] [id number] 2021-10-18 00:00:00 Andrade day Encounters Start End Encounter Admission Attending Care Care Encounter Source Date/Time Date/Time Type Type Clinicians Facility Department ID 2022-11-10 Outpatient [facility], STLMLC STLMLC [id number] [place] 11:36:01 [place] [address] [place] 2022-05-20 Outpatient [facility], STLMLC STLMLC [id number] Common 08:24:01 [place] [address] [place] 2022-05-15 Outpatient [facility], STLMLC STLMLC [id number] Common 08:53:00 [place] [address] [place] 2022-05-11 Outpatient [facility], STLMLC STLMLC [id number] Common 14:49:00 [place] [address] [place] 2022-05-08 Outpatient [facility], STLMLC STLMLC [id number] Common 10:15:01 [place] [address] [place] 2022-05-07 Outpatient [facility], STLMLC STLMLC [id number] Common 11:53:00 [place] [address] [place] 2022-02-18 Outpatient [facility], STLMLC STLMLC [id number] Common 12:05:01 [place] [address] [place] 2022-01-01 Outpatient [facility], STLMLC STLMLC [id number] Common 10:24:01 [place] 2021-12-29 Outpatient [facility], STLMLC STLMLC [id number] Common 08:34:00 [place] 2021-12-16 Outpatient [facility] [id number] NE 14:42:21 [id number] [facility] 2021-11-19 Outpatient [facility], STLMLC STLMLC [id number] Common 08:42:01 [place] 2021-11-03 Outpatient [facility], STLMLC STLMLC [id number] Common 10:33:01 [place] 2021-10-15 Outpatient 3 [id number] ENCPL REF [id number] [facility] 08:19:25 [facility] [facility] 2021-10-14 Outpatient 3 [id number] ENCPL REF [id number] [facility] 11:59:03 0517 [facility] [place] 2021-06-25 Outpatient [facility], STLMLC STLMLC [id number] Common 14:22:06 [place] [address] [place] 2021-06-25 Outpatient [facility], STLMLC STLMLC [id number] Common 14:13:51 [place] [address] [place] 2021-06-25 Outpatient [facility], STLMLC STLMLC [id number] Common 13:38:12 [place] [address] [place] 2021-06-25 Outpatient [facility], STLMLC STLMLC [id number] Common 12:43:29 [place] [address] [place] 2021-06-25 Outpatient [facility], STLMLC STLMLC [id number] Common 12:42:27 [place] [address] [place] 2021-06-25 Outpatient [facility], STLMLC STLMLC [id number] Common 12:31:12 [place] [address] [place] 2021-06-25 Outpatient [facility], STLMLC STLMLC [id number] Common 12:31:03 [place] [address] [place] 2021-06-25 Outpatient [facility], STLMLC STLMLC [id number] Common 12:30:21 [place] [address] [place] 2021-06-25 Outpatient [facility], STLMLC STLMLC [id number] Common 11:00:43 [place] [address] [place] 2022-10-31 2022-10-31 Emergency [facility] [id number] Univers 09:00:00 12:40:00 RONNIE ity [facility] 2022-10-31 2022-10-31 [facility] [id number] Univers 09:00:00 12:40:00 Ronnie CARRASQUILLO [id number] i ty of NATASHA 4.2.7.2.686 [facility] [id number] [facility] 084 Branch 2022-10-16 2022-10-16 Transition SHAJI Davis [id number] Univers 00:00:00 00:00:00 of Care Ubaldo Avendano TORI [id number] ity of MAGGIE 4.2.7.2.686 [facility] [id number] [facility] 403 Branch 2022-10-10 2022-10-15 Inpatient X [facility] [id number] Univers 13:54:00 14:40:00 MARIANNA leal [facility] 2022-10-10 2022-10-15 [facility] Fabian Fernandes [facility] [id number] Univers 13:54:00 14:40:00 Encounter Mine Mosqueda [id number] ity Marianna Barbour 4.2.7.2.[address] [facility] [id number] [facility] 080 Branch 2022-07-03 2022-07-03 (TEL) STLMLC STLMLC [id number] Co mmon 00:00:00 00:00:00 [place] 2022-06-08 2022-06-08 (TEL) STLMLC STLMLC [id number] Co mmon 00:00:00 00:00:00 [place] 2022-05-06 2022-05-06 (TEL) STLMLC STLMLC [id number] Co mmon 00:00:00 00:00:00 [place] 2022-04-03 2022-04-03 (TEL) STLMLC STLMLC [id number] Co mmon 00:00:00 00:00:00 [place] 2022-02-17 2022-02-17 (TEL) STLMLC STLMLC [id number] Co mmon 00:00:00 00:00:00 [place] 2022-02-17 2022-02-17 OFFICE STLMLC STLMLC [id number] Co mmon 00:00:00 00:00:00 VISIT [facility] PT - CHI [address] 2022-01-06 2022-01-06 OFFICE STLMLC STLMLC [id number] Co mmon 00:00:00 00:00:00 VISIT [facility] PT - [facility] [address] 2022-01-02 2022-01-02 Emergency nullFlavo [facility] [id number] Memoria 17:12:00 21:33:00 r Booker 03 [facility] 2022-01-02 2022-01-02 Emergency [facility] [id number] Memoria 17:12:00 21:33:00 latrice Celeste 03 [facility] 2022-01-02 2022-01-02 Emergency E LONG, BL MHBL [id number] MHBL 12:12:00 16:33:00 CAREY 2022-01-02 2022-01-02 Outpatient [place], [address] [place] [id number] 12:12:00 16:33:00 Carey R 03 2022-01-01 2022-01-01 (TEL) STLMLC STLMLC [id number] Co mmon 00:00:00 00:00:00 [place] 2022-01-01 2022-01-01 (EST. STLMLC STLMLC [id number] Co mmon 00:00:00 00:00:00 VIDEO) EST Spi rit VIRTUAL - CHI VIDEO [facility] 2022-01-01 2022-01-01 (TEL) STLC STLC [id number] Co mmon 00:00:00 00:00:00 [place] 2021-12-31 2021-12-31 (TEL) STLMLC STLC [id number] Co mmon 00:00:00 00:00:00 [place] 2021-12-14 2021-12-17 Inpatient [facility]Flavo [facility] [id number] Memoria 19:19:49 03:14:00 r Booker 02 [facility] 2021-12-14 2021-12-17 Inpatient nullFlavo [facility] [id number] Memoria 19:19:49 03:14:00 r Booker 02 [facility] 2021-12-14 2021-12-16 Inpatient E SAJJA, MHBL MED [id number] MHBL 18:26:00 22:14:00 ZACHARY 2021-12-14 2021-12-16 Outpatient Sajja, MHPL MHPL [id number] 14:19:49 22:14:00 Zachary 02 2021-12-14 2021-12-14 Outpatient Ajibade, MHPL MHPL [id number] 14:19:49 14:19:49 [facility] 2021-12-03 2021-12-04 Emergency nullFlavo [facility] [id number] Memoria 23:19:26 14:53:00 r Booker 01 [facility] 2021-12-03 2021-12-04 Emergency nullFlavo [facility] [id number] Memoria 23:19:26 14:53:00 r Lyons 01 [facility] 2021-12-03 2021-12-04 Outpatient Fadowole, MHPL MHPL [id number] 18:19:26 09:53:00 [facility] 2021-12-03 2021-12-04 Emergency E FADOWOLE, MHBL MHBL [id number] MHBL 18:19:00 09:53:00 PEPPER 2021-12-01 2021-12-01 Outpatient COH COH PIJFJKR ZIB COH 00:00:00 00:00:00 [id number] 2021-11-25 2021-11-27 Observatio nullFlavo [facility] [id number] Memoria 03:23:10 00:12:00 comfort Celeste 00 l [facility] 2021-11-25 2021-11-27 Observatio nullFlavo [facility] [id number] Memoria 03:23:10 00:12:00 comfort Celeste 00 l [facility] 2021-11-25 2021-11-26 Outpatient E AJIBADE, MHBL MED [id number] MHBL 10:37:00 19:12:00 MONSE 2021-11-24 2021-11-26 Outpatient Ajibade, MHPL MHPL [id number] 22:23:10 19:12:00 [facility] 2021-11-24 2021-11-26 Outpatient Ajibade, MHPL MHPL [id number] 22:23:10 19:12:00 [facility] 2021-11-24 2021-11-24 (TEL) STLMLC STLMLC [id number] Co mmon 00:00:00 00:00:00 [place] 2021-10-16 2021-11-03 Inpatient 3 NATHANIEL, ENCPL GILDA [id number] [facility] 23:26:00 21:40:00 CHILANGO 0519 [facility] [place] [facility] 2021-11-03 2021-11-03 OFFICE STLMLC STLMLC [id number] Co mmon 00:00:00 00:00:[address] [facility] it PT LEVEL [address] [facility] 2021-10-17 2021-10-17 (TEL) STLMLC STLMLC [id number] Co mmon 00:00:00 00:00:00 Spirit - [facility] 2021-08-12 2021-08-12 (TEL) STLMLC STLMLC [id number] Co mmon 00:00:00 00:00:00 Spirit [facility] 2021-07-28 2021-07-28 OFFICE STLMLC STLMLC [id number] Co mmon 00:00:00 00:00:00 VISIT [facility] ESTAB PT - CHI LEVEL 4 [facility] 2021-07-28 2021-07-28 SUB ANNUAL STLMLC STLMLC [id number] Common 00:00:00 00:00:00 MCR [facility] WELL[facility] - [facility] VISIT [facility] 2021-06-12 2021-06-12 (TEL) STLMLC STLMLC [id number] Co mmon 00:00:00 00:00:00 [place] 2021-05-21 2021-05-21 (TEL) STLMLC STLMLC [id number] Co mmon 00:00:00 00:00:00 [place] 2021-04-28 2021-04-28 OFFICE STLMLC STLMLC [id number] Co mmon 00:00:00 00:00:00 VISIT [facility] PT - CHI [facility] [address] [facility] 2021-03-26 2021-03-26 (TEL) STLMLC STLMLC [id number] Co mmon 00:00:00 00:00:00 [place] 2021-03-12 2021-03-12 OFFICE STLMLC STLMLC [id number] Co mmon 00:00:00 00:00:00 VISIT [facility] PT - [facility]I [address] 2021-02-10 2021-02-10 Outpatient STLMLC STLMLC [id number] Common 00:00:00 00:00:00 [place] 2021-01-31 2021-01-31 Outpatient STLMLC STLMLC [id number] Common 00:00:00 00:00:00 [place] 2021-01-13 2021-01-13 Outpatient STLMLC STLMLC [id number] Common 00:00:00 00:00:00 [place] 2021-01-08 2021-01-08 Outpatient STLMLC STLMLC [id number] Common 00:00:00 00:00:00 [place] 2020-12-31 2020-12-31 Outpatient STLMLC STLMLC [id number] Common 00:00:00 00:00:00 [place] 2020-12-11 2020-12-11 Outpatient STLMLC STLMLC [id number] Common 00:00:00 00:00:00 [place] 2020-08-19 2020-08-19 Outpatient STLMLC STLMLC [id number] Common 00:00:00 00:00:00 [place] 2020-07-19 2020-07-19 Outpatient STLMLC STLMLC [id number] Common 00:00:00 00:00:00 [place] 2020-07-15 2020-07-15 Outpatient STLMLC STLMLC [id number] Common 00:00:00 00:00:00 [place] 2020-06-14 2020-06-14 Outpatient STLMLC STLMLC [id number] Common 00:00:00 00:00:00 [place] 2020-06-05 2020-06-05 Outpatient STLMLC STLMLC [id number] Common 00:00:00 00:00:00 [place] 2020-04-23 2020-04-23 Outpatient STLMLC STLMLC [id number] Common 00:00:00 00:00:00 [place] 2020-04-22 2020-04-22 Outpatient STLMLC STLMLC [id number] Common 00:00:00 00:00:00 [place] 2020-04-17 2020-04-17 Outpatient STLMLC STLMLC [id number] Common 00:00:00 00:00:00 [place] 2020-01-15 2020-01-15 [facility] [id number] Common 10:45:00 10:45:00 [place] [address] [facility] 2019-10-16 2019-10-16 [facility] [id number] Common 13:00:00 13:00:00 [place] [address] [facility] 2019-07-17 2019-07-17 [facility] [id number] Common 13:45:00 13:45:00 [place] [address] [facility] 2019-06-14 2019-06-14 [facility] [id number] Common 11:45:00 11:45:00 [place] [address] [facility] 2019-06-07 2019-06-07 [facility] [id number] Common 11:57:00 11:57:00 [place] [address] [facility] 2019-05-17 2019-05-17 Out[facility] [id number] Common 11:30:00 11:30:00 [place] [address] [facility] 2019-04-24 2019-04-24 Out[facility] [id number] Common 14:52:00 14:52:00 [place] [address] [facility] 2019-04-19 2019-04-19 [facility] [id number] Common 14:45:00 14:45:00 [place] [address] [facility] 2019-04-06 2019-04-06 [facility] [id number] Common 08:35:00 08:35:00 [place] [address] [facility] 2019-04-04 2019-04-04 [facility] [id number] Common 08:34:00 08:34:00 [place] [address] [facility] 2019-03-08 2019-03-08 [facility] [id number] Common 10:57:00 10:57:00 [place] [address] [facility] 2019-02-20 2019-02-20 Out[facility] [id number] Common 14:00:00 14:00:00 [place] [address] [facility] Results Test Description Test Time Test Comments Results Result Comments Source COMP. METABOLIC PANEL (33037) 2022-10-31 15:25:34 Test Item Value Reference Range Interpretation Comme nts NA (test code = 5462845016) 136 mmol/L 135-145 K (test code = 0131625448) 4.7 mmol/L 3.5-5.0 CL (test code = 4692566494) 96 mmol/L 98-108 L CO2 TOTAL (test code = 2125183289) 31 mmol/L 23-31 AGAP (test code = 6402140575) 9 2-16 BUN (test code = 2524039964) 26 mg/dL 7-23 H GLUCOSE (test code = 8342159224) 190 mg/dL 70-110 H CREATININE (test code = 2.56 mg/dL 0.60-1.25 H 9096614939) TOTAL BILI (test code = 0.9 mg/dL 0.1-1.9 2870845022) CALCIUM (test code = 4625010812) 9.6 mg/dL 8.6-10.6 T PROTEIN (test code = 4941555606) 6.4 g/dL 6.3-8.2 ALBUMIN (test code = 0842798295) 3.5 g/dL 3.5-5.0 ALK PHOS (test code = 1828778088) 307 U/L 34-122 H ALTv (test code = 1742-6) 27 U/L 5-50 AST(SGOT) (test code = 6063003488) 28 U/L 13-40 eGFR (test code = 0011933830) 24.5 mL/min/1.73m2 MALIK (test code = MALIK) [...] tests). Lab Interpretation (test code = Abnormal 12192-8) [facility]25[facility]34 Test Item Value Reference Range Interpretation Comments LIPASE (test code = 0622469988) 212 U/L 0-220 Lab Interpretation (test code = Normal 46786-8) [facility] WITH [id number] 15:12:12 Test Item Value Reference Range Interpretation Comments WBC (test code = 4.75 See_Comment [Automated 8711-2) message] The sy stem which generated this result transmitted reference range : 4.20 - 10.70 10*3/?L. The reference range was not used to interpret this result as normal/abnormal . RBC (test code = 1.98 See_Comment L [Automated 039-8) message] The sy stem which generated this [...] RDW-SD (test code = 45.4 fL 38.5-51.6 92558-6) RDW-CV (test code = 14.3 % 12.1-15.4 788-0) PLT (test code = 191 See_Comment [Automated 947-3) message] The sy stem which generated this result transmitted reference range : 150 - 328 10*3/ ?L. The reference r samantha was not used to interpret this result as normal/abnormal . MPV (test code = 10.1 fL 9.8-13.0 45448-1) NRBC/100 WBC (test 0.0 See_Comment [Automat ed code = 6713252986) message] The system which generated this result transmitted reference range : 0.0 - 10.0 /100 WBCs. The refer ence range was not u sed to interpret th is result as normal/abnormal . NRBC x10^3 (test code See_Comment [Auto mated = 4925441206) message] The s ystem which generated this result transmitted reference range : 10*3/?L. The reference range was not used to interpret this result as normal/abnormal . GRAN MAT (NEUT) % 62.8 % (test code = 770-8) IMM GRAN % (test code 0.60 % = 2925404699) LYMPH % (test code = 23.2 % 736-9) MONO % (test code = 10.9 % 5905-5) EOS % (test code = 2.3 % 713-8) BASO % (test code = 0.2 % 706-2) GRAN MAT x10^3(ANC) 2.98 10*3/uL 1.99-6.95 (test code = 8472337986) IMM GRAN x10^3 (test 0.03 10*3/uL 0.00-0.06 code = 7260516268) LYMPH x10^3 (test code 1.10 10*3/uL 1.09-3.23 = 731-0) MONO x10^3 (test code 0.52 10*3/uL 0.36-1.02 = 742-7) EOS x10^3 (test code = 0.11 10*3/uL 0.06-0.53 711-2) BASO x10^3 (test code 0.01-0.09 = 704-7) Lab Interpretation Abnormal (test code = 94617-8) [facility] GLUCOSE (AUTOMATED)2022-10-15 16:18:07 Test Item Value Reference Range Interpretation Comments POCT GLU (test code = 4107675844) 131 mg/dL 70-110 H Lab Interpretation (test code = Abnormal 51569-2) [facility] GLUCOSE (AUTOMATED)2022-10-15 12:27:02 Test Item Value Reference Range Interpretation Comments POCT GLU (test code = 7358774368) 220 mg/dL 70-110 H Lab Interpretation (test code = Abnormal 72103-1) [facility] (in units), 2 Units 2022-10-15 05:15:09 Test Item Value Reference Range Interpretation Comments Cross Match Result Compatible (test code = 4409) ISBT Blood Type Code 6200 (test code = 052766) Unit Blood Type (test A Pos code = 4410) Unit Number (test [id number] code = 4411) Blood Expiration Date [id number] & Time (test code = 603595) Status Information Released (test code = 4412) Product Red Blood Cells Identification (test code = 4413) Product Code (test [id number] Performed at [facility] code = 4414) Laboratory Services - [facility] [address] [place], [place] [address]Toll Free: [phone] A No. [id number] [facility] GLUCOSE (AUTOMATED)2022-10-15 01:55:15 Test Item Value Reference Range Interpretation Comments POCT GLU (test code = 8999447245) 152 mg/dL 70-110 H Lab Interpretation (test code = Abnormal 93725-4) [facility] Surface Antibody (HBsAb)2022-10-15 00:05:17 Test Item Value Reference Range Interpretation Comments HBsAB (test code = Negative 2410406177) HBsAb 3.80 mIU/mL Semi-Quantitative (test code = 6949191065) MALIK (test code = Interpretation: MALIK) ?Hepatitis B Surface Antibody ? Negative - Patient is considered to be not immune to infection with HBV. ? ? Positive - Anti-HBs detected at greater than or equal to 12 mIU/mL. ?Patient is considered to be immune to infection with HBV. ? [facility] B Surface Antigen (HBsAg)2022-10-14 23:47:58 Test Item Value Reference Range Interpretation Comments HBsAg Semi-Quantitative (test code = 0.09 Negative 5195-3) [facility] GLUCOSE (AUTOMATED)2022-10-14 21:41:48 Test Item Value Reference Range Interpretation Comments POCT GLU (test code = 0950649103) 118 mg/dL 70-110 H Lab Interpretation (test code = Abnormal 23035-2) [facility] GLUCOSE (AUTOMATED)2022-10-14 16:47:29 Test Item Value Reference Range Interpretation Comments POCT GLU (test code = 8660397327) 132 mg/dL 70-110 H Lab Interpretation (test code = Abnormal 52909-5) [facility] CULTURE [id number] 14:16:04 Test Item Value Reference Range Interpretation Comments Blood Culture-Aerobic Culture positive. No growth AA P revious (test code = 78709-5) See Blood Culture p reliminary Workup for verified result additional was Culture In information. Progress on 10/10/2022 at 19 01 CDTPrevious preliminary verified result was No growth a t 24 hours on 10/11/2022 at 16 01 CDT Blood No organisms No growth Previous Culture-Anaerobic isolated preliminar y (test code = 33222-7) verifi ed result was Culture In Progress on 10/10/2022 at 19 01 CDTPrevious preliminary verified result was No growth a t 24 hours on 10/11/2022 at 16 01 CDTPrevious preliminary verified result was Culture In Progress on 10/12/2022 at 11 51 CDT Lab Interpretation Abnormal (test code = 97013-2) [facility] CULTURE [id number] 14:16:04 Test Item Value Reference Range Interpretation Comments Blood Culture-Aerobic Culture positive. No growth AA P revious (test code = 71161-6) See Blood Culture p reliminary Workup for verified result additional was Culture In information. Progress on 10/10/2022 at 19 01 CDTPrevious preliminary verified result was No growth a t 24 hours on 10/11/2022 at 16 01 CDT Blood No organisms No growth Previous Culture-Anaerobic isolated preliminar y (test code = 29586-1) verifi ed result was Culture In Progress on 10/10/2022 at 19 01 CDTPrevious preliminary verified result was No growth a t 24 hours on 10/11/2022 at 16 01 CDT Lab Interpretation Abnormal (test code = 68761-1) [facility] GLUCOSE (AUTOMATED)2022-10-14 12:54:35 Test Item Value Reference Range Interpretation Comments POCT GLU (test code = 8983589352) 221 mg/dL 70-110 H Lab Interpretation (test code = Abnormal 15164-5) [facility] GLUCOSE (AUTOMATED)2022-10-14 03:16:56 Test Item Value Reference Range Interpretation Comments POCT GLU (test code = 1925212957) 129 mg/dL 70-110 H Lab Interpretation (test code = Abnormal 80073-2) [facility] GLUCOSE (AUTOMATED)2022-10-13 21:44:17 Test Item Value Reference Range Interpretation Comments POCT GLU (test code = 7323432489) 95 mg/dL 70-110 Lab Interpretation (test code = Normal 51002-5) [facility] GLUCOSE (AUTOMATED)2022-10-13 16:27:34 Test Item Value Reference Range Interpretation Comments POCT GLU (test code = 2775173057) 167 mg/dL 70-110 H Lab Interpretation (test code = Abnormal 40408-4) [facility] GLUCOSE (AUTOMATED)2022-10-13 12:36:25 Test Item Value Reference Range Interpretation Comments POCT GLU (test code = 5968371605) 169 mg/dL 70-110 H Lab Interpretation (test code = Abnormal 77141-5) [facility] GLUCOSE (AUTOMATED)2022-10-13 01:25:21 Test Item Value Reference Range Interpretation Comments POCT GLU (test code = 2773130547) 142 mg/dL 70-110 H Lab Interpretation (test code = Abnormal 79634-1) [facility]ENS DNA [id number] 21:42:17 Test Item Value Reference Range Interpretation Comments Coagulase Negative Positive Negative, See A Staphylococcus (test Comment/Narrative code = 67539-9) MALIK (test code = MALIK) Coagulase negative [...] contact the Antimicrobial Stewardship Program with questions.Pager: ?[phone] Testing included eleven identification and three resistance marker targets. Lab Interpretation Abnormal (test code = 22487-0) [facility] GLUCOSE (AUTOMATED)2022-10-12 21:24:15 Test Item Value Reference Range Interpretation Comments POCT GLU (test code = 1008649176) 124 mg/dL 70-110 H Lab Interpretation (test code = Abnormal 32338-2) [facility] (in units), 1 Units 2022-10-12 18:29:53 Test Item Value Reference Range Interpretation Comments Cross Match Result Compatible (test code = 4409) ISBT Blood Type Code 6200 (test code = 128574) Unit Blood Type (test A Pos code = 4410) Unit Number (test [id number] code = 4411) Blood Expiration Date [id number] & Time (test code = 329648) Status Information Issued (test code = 4412) Product Red Blood Cells Identification (test code = 4413) Product Code (test [id number] Performed at [facility] code = 4414) Laboratory Services - [facility] Blood [address] [place] [id number] Free: [phone] A No. [id number] [facility] GLUCOSE (AUTOMATED)2022-10-12 16:49:16 Test Item Value Reference Range Interpretation Comments POCT GLU (test code = 5930891407) 183 mg/dL 70-110 H Lab Interpretation (test code = Abnormal 71878-8) [facility] [id number] 14:35:54 Test Item Value Reference Range Interpretation Comments NT-proBNP (test code = 75617 pg/mL <=450 H 9146477015) MALIK (test code = MALIK) Biotin has been reported to cause a negative bias, interpret results relative to patient's use of biotin. Lab Interpretation (test Abnormal code = 61096-5) [facility] [id number] 14:31:03 Test Item Value Reference Range Interpretation Comments TROPONIN I (test code = 0.296 ng/mL <=0.034 H 8245571296) MALIK (test code = MALIK) Reference (Normal) [...] biotin. Lab Interpretation Abnormal (test code = 14019-5) [facility] HospitalLIPID PANEL (61497)(TOTAL CHOLESTEROL, TRIGLYCERIDES, HDL)2022-10-12 14:05:04 Test Item Value Reference Range Interpretation Comments CHOL (test code = 3204641662) 61 mg/dL 120-200 L HDL (test code = 3449082543) 19 mg/dL >=40 L HDLC RATIO (test code = 9642860988) 3.2 <=5.0 TRIG (test code = 2157706705) 82 mg/dL 30-170 LDL CHOL (test code = 87436-3) 26 mg/dL <=160 VLDL (test code = 4977901554) 16 mg/dL 5-60 Lab Interpretation (test code = Abnormal 74055-3) [facility]2022-10-12 12:46:09 Test Item Value Reference Range Interpretation Comments POCT GLU (test code = 3232606025) 139 mg/dL 70-110 H Lab Interpretation (test code = Abnormal 08452-0) [facility] METABOLIC PANEL (NA, K, CL, CO2, GLUCOSE, BUN, CREATININE, CA)2022-10-12 11:04:31 Test Item Value Reference Range Interpretation Comments NA (test code = 136 mmol/L 135-145 3654045341) K (test code = 4.9 mmol/L 3.5-5.0 7409658394) CL (test code = 99 mmol/L 98-108 6562294268) CO2 TOTAL (test code = 27 mmol/L 23-31 7867105171) AGAP (test code = 10 2-16 3059702657) BUN (test code = 54 mg/dL 7-23 H 7589786177) GLUCOSE (test code = 136 mg/dL 70-110 H 9747789341) CREATININE (test code = 4.66 mg/dL 0.60-1.25 H 6352716714) CALCIUM (test code = 9.0 mg/dL 8.6-10.6 5927161897) eGFR (test code = 12.3 mL/min/1.73m2 4981073457) MALIK (test code = MALIK) Association of [...] tests). Lab Interpretation Abnormal (test code = 64041-1) [facility]2023-[facility]-15 11:04:31 Test Item Value Reference Range Interpretation Comments MAGNESIUM (test code = 1256636032) 1.9 mg/dL 1.7-2.4 Lab Interpretation (test code = Normal 02552-5) [facility]PHOS[facility]US2023-05-15 11:04:11 Test Item Value Reference Range Interpretation Comments PHOSPHORUS (test code = 2588511146) 3.8 mg/dL 2.5-5.0 Lab Interpretation (test code = Normal 92683-0) [facility] HospitalCB WITH [id number] 10:44:53 Test Item Value Reference Range Interpretation [...] RDW-SD (test code = 46.5 fL 38.5-51.6 23508-7) RDW-CV (test code = 14.5 % 12.1-15.4 788-0) PLT (test code = 129 See_Comment L [Automated 777-3) message] The sy stem which generated this result transmitted reference range : 150 - 328 10*3/ ?L. The reference r samantha was not used to interpret this result as normal/abnormal . MPV (test code = 9.7 fL 9.8-13.0 L 55558-3) NRBC/100 WBC (test 0.0 See_Comment [Automat ed code = 7574053526) message] The system which generated this result transmitted reference range : 0.0 - 10.0 /100 WBCs. The refer ence range was not u sed to interpret th is result as normal/abnormal . NRBC x10^3 (test code See_Comment [Auto mated = 9903042390) message] The s ystem which generated this result transmitted reference range : 10*3/?L. The reference range was not used to interpret this result as normal/abnormal . GRAN MAT (NEUT) % 70.2 % (test code = 770-8) IMM GRAN % (test code 0.40 % = 5062014602) LYMPH % (test code = 19.3 % 736-9) MONO % (test code = 7.4 % 5905-5) EOS % (test code = 2.3 % 713-8) BASO % (test code = 0.4 % 706-2) GRAN MAT x10^3(ANC) 3.61 10*3/uL 1.99-6.95 (test code = 6881881761) IMM GRAN x10^3 (test 0.00-0.06 code = 0328351302) LYMPH x10^3 (test code 0.99 10*3/uL 1.09-3.23 L = 731-0) MONO x10^3 (test code 0.38 10*3/uL 0.36-1.02 = 742-7) EOS x10^3 (test code = 0.12 10*3/uL 0.06-0.53 711-2) BASO x10^3 (test code 0.01-0.09 = 704-7) Lab Interpretation Abnormal (test code = 27648-7) [facility] GLUCOSE (AUTOMATED)2022-10-12 06:45:05 Test Item Value Reference Range Interpretation Comments POCT GLU (test code = 5884591539) 189 mg/dL 70-110 H Lab Interpretation (test code = Abnormal 75451-5) [facility] GLUCOSE (AUTOMATED)2022-10-12 01:24:37 Test Item Value Reference Range Interpretation Comments POCT GLU (test code = 0624095115) 145 mg/dL 70-110 H Lab Interpretation (test code = Abnormal 74117-9) [facility] GLUCOSE (AUTOMATED)2022-10-11 21:34:09 Test Item Value Reference Range Interpretation Comments POCT GLU (test code = 2746399899) 140 mg/dL 70-110 H Lab Interpretation (test code = Abnormal 22229-3) [facility] GLUCOSE (AUTOMATED)2022-10-11 17:09:13 Test Item Value Reference Range Interpretation Comments POCT GLU (test code = 1314732422) 174 mg/dL 70-110 H Lab Interpretation (test code = Abnormal 47937-3) [facility] GLUCOSE (AUTOMATED)2022-10-11 16:19:41 Test Item Value Reference Range Interpretation Comments POCT GLU (test code = 9657967368) 170 mg/dL 70-110 H Lab Interpretation (test code = Abnormal 39627-7) [facility] GLUCOSE (AUTOMATED)2022-10-11 14:32:59 Test Item Value Reference Range Interpretation Comments POCT GLU (test code = 9058095700) 151 mg/dL 70-110 H Lab Interpretation (test code = Abnormal 36313-0) [facility] GLUCOSE (AUTOMATED)2022-10-11 13:15:13 Test Item Value Reference Range Interpretation Comments POCT GLU (test code = 8080581280) 108 mg/dL 70-110 Lab Interpretation (test code = Normal 15338-3) [facility] GLUCOSE (AUTOMATED)2022-10-11 12:14:37 Test Item Value Reference Range Interpretation Comments POCT GLU (test code = 1087916883) 106 mg/dL 70-110 Lab Interpretation (test code = Normal 05705-3) [facility] GLUCOSE (AUTOMATED)2022-10-11 11:28:53 Test Item Value Reference Range Interpretation Comments POCT GLU (test code = 8493200214) 121 mg/dL 70-110 H Lab Interpretation (test code = Abnormal 60295-2) [facility]2022-10-11 09:43:44 Test Item Value Reference Range Interpretation Comments POCT GLU (test code = 8308997858) 129 mg/dL 70-110 H Lab Interpretation (test code = Abnormal 53487-1) [facility] GLUCOSE (AUTOMATED)2022-10-11 08:46:38 Test Item Value Reference Range Interpretation Comments POCT GLU (test code = 6758891582) 101 mg/dL 70-110 Lab Interpretation (test code = Normal 65114-7) [facility]2022-10-11 07:38:35 Test Item Value Reference Range Interpretation Comments POCT GLU (test code = 4633201066) 102 mg/dL 70-110 Lab Interpretation (test code = Normal 11817-1) [facility] GLUCOSE (AUTOMATED)2022-10-11 06:20:36 Test Item Value Reference Range Interpretation Comments POCT GLU (test code = 4234240168) 112 mg/dL 70-110 H Lab Interpretation (test code = Abnormal 39922-1) [facility]2022-10-11 05:53:46 Test Item Value Reference Range Interpretation Comments POCT GLU (test code = 5883764670) 118 mg/dL 70-110 H Lab Interpretation (test code = Abnormal 44656-2) [facility]2022-10-11 04:25:32 Test Item Value Reference Range Interpretation Comments POCT GLU (test code = 1051540218) 127 mg/dL 70-110 H Lab Interpretation (test code = Abnormal 08820-3) [facility] GLUCOSE (AUTOMATED)2022-10-11 03:35:04 Test Item Value Reference Range Interpretation Comments POCT GLU (test code = 4851323876) 132 mg/dL 70-110 H Lab Interpretation (test code = Abnormal 07748-8) [facility] GLUCOSE (AUTOMATED)2022-10-11 02:10:18 Test Item Value Reference Range Interpretation Comments POCT GLU (test code = 6960415502) 155 mg/dL 70-110 H Lab Interpretation (test code = Abnormal 54852-7) [facility] HospitalGLYCOSYLATED HEMOGLOBIN (A1C)2022-10-11 01:39:22 Test Item Value Reference Range Interpretation Comments HGB A1C (test code = 7.2 % 4.0-5.7 H 4548-4) MALIK (test code = MALIK) Reference RangesNormal: <5.7%Prediabetes: 5.7 - 6.4%Diabetes: > 6.5% Lab Interpretation (test Abnormal code = 21107-2) [facility] GLUCOSE (AUTOMATED)2022-10-11 01:10:41 Test Item Value Reference Range Interpretation Comments POCT GLU (test code = 4534102625) 156 mg/dL 70-110 H Lab Interpretation (test code = Abnormal 11271-2) [facility] GLUCOSE (AUTOMATED)2022-10-10 23:31:02 Test Item Value Reference Range Interpretation Comments POCT GLU (test code = 2748179998) 144 mg/dL 70-110 H Lab Interpretation (test code = Abnormal 43166-7) [facility] GLUCOSE (AUTOMATED)2022-10-10 21:44:27 Test Item Value Reference Range Interpretation Comments POCT GLU (test code = 9983429385) 138 mg/dL 70-110 H Lab Interpretation (test code = Abnormal 70813-3) [facility] GLUCOSE (AUTOMATED)2022-10-10 21:27:07 Test Item Value Reference Range Interpretation Comments POCT GLU (test code = 3582041272) 150 mg/dL 70-110 H Lab Interpretation (test code = Abnormal 45936-4) [facility] 21 + LACTIC [id number] 21:01:36 Test Item Value Reference Range Interpretation Comments PH (test code = 7.31 7.32-7.42 L 3094426570) PCO2 LORENA (test code = 55 See_Comment H [Auto mated 9309020379) message] The sy stem which generated this result transmitted reference range : 41 - 51 mmHg. The reference range was not used to interpret this result as normal/abnormal . PO2 LORENA (test code = 16 See_Comment L [Autom ated 1773989729) message] The sy stem which generated this result transmitted reference range : 25 - 40 mmHg. The reference range was not used to interpret this result as normal/abnormal . HCO3 LORENA (test code = 27 See_Comment [Auto mated 5274816653) message] The sy stem which generated this result transmitted reference range : 24 - 28 mEq/L. The reference range was not used to interpret this result as normal/abnormal . AC VBE(BEAKER) (test 0.6 mEq/L code = 6357791222) THB LORENA (test code = 8.2 g/dL 13.5-18.0 LL 0235349153) %O2HB LORENA (test code = 22.2 % 52.0-63.0 L 4884611582) %COHB LORENA (test code = 0.1 % 0.0-1.5 3568793640) %METHB LORENA (test code = 1.5 % 0.4-1.5 1648949207) VOL%O2 LORENA (test code = 2.6 % 6.0-12.0 L 4060314835) NA (test code = 132 mmol/L 135-145 L 0332941099) K+ (test code = 4.7 mmol/L 3.5-5.0 9630789026) AC CA IONZ (test code = 5.10 mg/dL 4.50-5.30 0329851558) GLUCOSE (test code = 153 mg/dL 70-110 H 8424607628) LACTIC ACID (test code 1.54 mmol/L 0.50-2.20 = 1039623748) Lab Interpretation Abnormal (test code = 75140-2) [facility]2022-10-10 20:33:33 Test Item Value Reference Range Interpretation Comments POCT GLU (test code = 5928342164) 137 mg/dL 70-110 H Lab Interpretation (test code = Abnormal 68317-2) [facility] [id number] 20:24:02 Test Item Value Reference Range Interpretation Comments NT-proBNP (test code = 18846 pg/mL <=450 H 4223660437) MALIK (test code = MALIK) Biotin has been reported to cause a negative bias, interpret results relative to patient's use of biotin. Lab Interpretation (test Abnormal code = 41528-3) [facility]. METABOLIC PANEL (53735)2022-10-10 20:18:35 Test Item Value Reference Range Interpretation Comments NA (test code = 136 mmol/L 135-145 5206515061) K (test code = 4.8 mmol/L 3.5-5.0 2146265909) CL (test code = 94 mmol/L 98-108 L 8353811354) CO2 TOTAL (test code = 33 mmol/L 23-31 H 2795227462) AGAP (test code = 9 2-16 6279780339) BUN (test code = 34 mg/dL 7-23 H 9276088532) GLUCOSE (test code = 62 mg/dL 70-110 L 0949070726) CREATININE (test code = 3.14 mg/dL 0.60-1.25 H 0671988833) TOTAL BILI (test code = 0.9 mg/dL 0.1-1.5 5736456219) CALCIUM (test code = 9.4 mg/dL 8.6-10.6 1928865922) T PROTEIN (test code = 6.6 g/dL 6.3-8.2 2997113390) ALBUMIN (test code = 3.6 g/dL 3.5-5.0 3185328859) ALK PHOS (test code = 334 U/L 34-122 H 5423003239) ALTv (test code = 38 U/L 5-50 1742-6) AST(SGOT) (test code = 38 U/L 13-40 3310593390) eGFR (test code = 19.3 mL/min/1.73m2 7306513585) MALIK (test code = MALIK) Association of [...] tests). Lab Interpretation Abnormal (test code = 26037-4) [facility]2022-10-10 19:48:15 Test Item Value Reference Range Interpretation Comments POCT GLU (test code = 8870265015) 50 mg/dL 70-110 LL Lab Interpretation (test code = Abnormal 40790-2) [facility] [id number] 19:44:14 Test Item Value Reference Range Interpretation Comments TROPONIN I (test code = 0.060 ng/mL <=0.034 H 9657451915) MALIK (test code = MALIK) Reference (Normal) [...] biotin. Lab Interpretation Abnormal (test code = 16059-9) [facility] WITH [id number] 19:23:50 Test Item Value Reference Range Interpretation Comments WBC (test code = 7.51 See_Comment [Automated 6190-2) message] The sy stem which generated this result transmitted reference range : 4.20 - 10.70 10*3/?L. The reference range was not used to interpret this result as normal/abnormal . RBC (test code = 2.71 See_Comment L [Automated 399-8) message] The sy stem which generated this [...] RDW-SD (test code = 46.5 fL 38.5-51.6 55604-1) RDW-CV (test code = 14.4 % 12.1-15.4 788-0) PLT (test code = 131 See_Comment L [Automated 777-3) message] The sy stem which generated this result transmitted reference range : 150 - 328 10*3/ ?L. The reference r samantha was not used to interpret this result as normal/abnormal . MPV (test code = 9.2 fL 9.8-13.0 L 40171-5) NRBC/100 WBC (test 0.0 See_Comment [Automat ed code = 7427138041) message] The system which generated this result transmitted reference range : 0.0 - 10.0 /100 WBCs. The refer ence range was not u sed to interpret th is result as normal/abnormal . NRBC x10^3 (test code See_Comment [Auto mated = 3336303968) message] The s ystem which generated this result transmitted reference range : 10*3/?L. The reference range was not used to interpret this result as normal/abnormal . GRAN MAT (NEUT) % 80.2 % (test code = 770-8) IMM GRAN % (test code 0.50 % = 7836951084) LYMPH % (test code = 9.6 % 736-9) MONO % (test code = 8.8 % 5905-5) EOS % (test code = 0.4 % 713-8) BASO % (test code = 0.5 % 706-2) GRAN MAT x10^3(ANC) 6.02 10*3/uL 1.99-6.95 (test code = 8023973773) IMM GRAN x10^3 (test 0.04 10*3/uL 0.00-0.06 code = 1974968331) LYMPH x10^3 (test code 0.72 10*3/uL 1.09-3.23 L = 731-0) MONO x10^3 (test code 0.66 10*3/uL 0.36-1.02 = 742-7) EOS x10^3 (test code = 0.03 10*3/uL 0.06-0.53 L 711-2) BASO x10^3 (test code 0.04 10*3/uL 0.01-0.09 = 704-7) Lab Interpretation Abnormal (test code = 26967-0) [facility]2022-10-10 18:59:49 Test Item Value Reference Range Interpretation Comments POCT GLU (test code = 7273084399) 80 mg/dL 70-110 Lab Interpretation (test code = Normal 82322-0) [facility] [employer] [id number] 18:35:00 Test Item Value Reference Range Interpretation Comments Antibody Scrn (test Negative (01/02/22 1:35 code = Antibody Scrn) PM) [facility] [employer] [id number] 18:35:00 Test Item Value Reference Range Interpretation Comments ABO/Rh (test code = ABO/Rh) [facility] [id number] 18:35:00 Test Item Value Reference Range Interpretation Comments Antibody Scrn (test Negative (01/02/22 1:35 code = Antibody Scrn) PM) [facility] [employer] [id number] 18:35:00 Test Item Value Reference Range Interpretation Comments ABO/Rh (test code = ABO/Rh) AB [facility] [id number] 18:35:00 Test Item Value Reference Range Interpretation Comments Antibody Scrn (test Negative (01/02/22 1:35 code = Antibody Scrn) PM) [facility] [id number] 18:35:00 Test Item Value Reference Range Interpretation Comments ABO/Rh (test code = ABO/Rh) AB POS [facility] [id number] 18:35:00 Test Item Value Reference Range Interpretation Comments Antibody Scrn (test Negative (01/02/22 1:35 code = Antibody Scrn) PM) [facility] [id number] 18:35:00 Test Item Value Reference Range Interpretation Comments ABO/Rh (test code = ABO/Rh) AB POS [facility] [id number] 18:35:00 Test Item Value Reference Range Interpretation Comments Antibody Scrn (test Negative (01/02/22 1:35 code = Antibody Scrn) PM) [facility] [id number] 18:35:00 Test Item Value Reference Range Interpretation Comments ABO/Rh (test code = ABO/Rh) AB POS [facility] [id number] 18:35:00 Test Item Value Reference Range Interpretation Comments Antibody Scrn (test Negative (01/02/22 1:35 code = Antibody Scrn) PM) [facility] [id number] 18:35:00 Test Item Value Reference Range Interpretation Comments ABO/Rh (test code = ABO/Rh) AB POS [facility] [id number] 18:35:00 Test Item Value Reference Range Interpretation Comments Antibody Scrn (test Negative (01/02/22 1:35 code = Antibody Scrn) PM) [facility] [id number] 18:35:00 Test Item Value Reference Range Interpretation Comments ABO/Rh (test code = ABO/Rh) AB POS [facility] [id number] 18:35:00 Test Item Value Reference Range Interpretation Comments Antibody Scrn (test Negative (01/02/22 1:35 code = Antibody Scrn) PM) [facility] [employer] [id number] 18:35:00 Test Item Value Reference Range Interpretation Comments ABO/Rh (test code = ABO/Rh) AB POS [facility] [id number] 18:35:00 Test Item Value Reference Range Interpretation Comments Antibody Scrn (test Negative (01/02/22 1:35 code = Antibody Scrn) PM) [facility] [employer] [id number] 18:35:00 Test Item Value Reference Range Interpretation Comments ABO/Rh (test code = ABO/Rh) AB POS [employer] [id number] 18:35:00 Test Item Value Reference Range Interpretation Comments Antibody Scrn (test Negative (01/02/22 1:35 code = Antibody Scrn) PM) [facility] SUPR [id number] 18:35:00 Test Item Value Reference Range Interpretation Comments ABO/Rh (test code = ABO/Rh) AB POS [employer] [id number] 18:35:00 Test Item Value Reference Range Interpretation Comments Antibody Scrn (test Negative (01/02/22 1:35 code = Antibody Scrn) PM) [employer] [id number] 18:35:00 Test Item Value Reference Range Interpretation Comments ABO/Rh (test code = ABO/Rh) AB POS [employer] [id number] 18:35:00 Test Item Value Reference Range Interpretation Comments Antibody Scrn (test Negative (01/02/22 1:35 code = Antibody Scrn) PM) [facility] SUPR [id number] 18:35:00 Test Item Value Reference Range Interpretation Comments ABO/Rh (test code = ABO/Rh) AB POS [employer] [id number] 18:13:00 Test Item Value Reference Range Interpretation Comments HS Troponin I (test code = HS Troponin 156 I) [employer] [id number] 18:13:00 Test Item Value Reference Range Interpretation Comments Glucose Lvl (test code = Glucose Lvl) 237 70-99 [employer] [id number] 18:13:00 Test Item Value Reference Range Interpretation Comments BUN (test code = BUN) 46 7-22 [employer] [id number] 18:13:00 Test Item Value Reference Range Interpretation Comments Creatinine Lvl (test code = Creatinine 5.92 0.50-1.40 Lvl) [employer] [id number] 18:13:00 Test Item Value Reference Range Interpretation Comments Sodium Lvl (test code = Sodium Lvl) 134 135-145 [employer] [id number] 18:13:00 Test Item Value Reference Range Interpretation Comments Potassium Lvl (test code = Potassium 4.4 3.5-5.1 Lvl) [facility] [id number] 18:13:00 Test Item Value Reference Range Interpretation Comments Chloride Lvl (test code = Chloride Lvl) 98 95-109 [facility] [id number] 18:13:00 Test Item Value Reference Range Interpretation Comments HS Troponin I (test code = HS Troponin 156 I) [facility] [id number] 18:13:00 Test Item Value Reference Range Interpretation Comments Glucose Lvl (test code = Glucose Lvl) 237 70-99 [facility]2022-08-05 18:13:00 Test Item Value Reference Range Interpretation Comments BUN (test code = BUN) 46 7-22 [facility]2022-08-05 18:13:00 Test Item Value Reference Range Interpretation Comments Creatinine Lvl (test code = Creatinine 5.92 0.50-1.40 Lvl) [facility] [id number] 18:13:00 Test Item Value Reference Range Interpretation Comments Sodium Lvl (test code = Sodium Lvl) 134 135-145 [facility] [id number] 18:13:00 Test Item Value Reference Range Interpretation Comments Potassium Lvl (test code = Potassium 4.4 3.5-5.1 Lvl) [facility] [id number] 18:13:00 Test Item Value Reference Range Interpretation Comments Chloride Lvl (test code = Chloride Lvl) 98 95-109 [facility]2022-08-05 18:13:00 Test Item Value Reference Range Interpretation Comments CO2 (test code = CO2) 29 [facility]2022-08-05 18:13:00 Test Item Value Reference Range Interpretation Comments Calcium Lvl (test code = Calcium Lvl) 9.2 8.5-10.5 [facility] [id number] 18:13:00 Test Item Value Reference Range Interpretation Comments Total Protein (test code = Total 6.6 6.4-8.4 Protein) [facility]2022-08-05 18:13:00 Test Item Value Reference Range Interpretation Comments CO2 (test code = CO2) 29 -32 [facility] [id number] 18:13:00 Test Item Value Reference Range Interpretation Comments Albumin Lvl (test code = Albumin Lvl) 3.1 3.5-5.0 [facility] [employer] [id number] 18:13:00 Test Item Value Reference Range Interpretation Comments ALT (test code = ALT) 36 See_Comment [Auto mated message] The system which ge nerated this result transmit swathi reference range : <=65. The reference range was not used to interpr et this result as deny l/abnormal. [facility] [employer] [id number] 18:13:00 Test Item Value Reference Range Interpretation Comments AST (test code = AST) 28 See_Comment [Auto mated message] The system which ge nerated this result transmit swathi reference range : <=37. The reference range was not used to interpr et this result as deny l/abnormal. [facility] [employer] [id number] 18:13:00 Test Item Value Reference Range Interpretation Comments Alk Phos (test code = Alk Phos) 231 39-136 [facility] [facility] [id number] 18:13:00 Test Item Value Reference Range Interpretation Comments Bili Total (test code = Bili Total) 1.0 0.2-1.3 [facility] [employer] [id number] 18:13:00 Test Item Value Reference Range Interpretation Comments AGAP (test code = AGAP) 11.4 10.0-20.0 [facility] [employer] [id number] 18:13:00 Test Item Value Reference Range Interpretation Comments B/C Ratio (test code = B/C Ratio) 8 1 6-25 [facility] [employer] [id number] 18:13:00 Test Item Value Reference Range Interpretation Comments Globulin (test code = Globulin) 3.5 2.7-4.2 [facility] [employer] [id number] 18:13:00 Test Item Value Reference Range Interpretation Comments A/G Ratio (test code = A/G Ratio) 0.9 1 0.7-1.6 [facility] [employer] [id number] 18:13:00 Test Item Value Reference Range Interpretation Comments eGFR (test code = eGFR) 9 [facility] [employer] [id number] 18:13:00 Test Item Value Reference Range Interpretation Comments Calcium Lvl (test code = Calcium Lvl) 9.2 8.5-10.5 [place] [address]-08-05 18:13:00 Test Item Value Reference Range Interpretation Comments WBC (test code = WBC) 4.8 3.7-10.4 [place] 155092-08-05 18:13:00 Test Item Value Reference Range Interpretation Comments RBC (test code = RBC) 1.93 4.70-6.10 [id number] 18:13:00 Test Item Value Reference Range Interpretation Comments Hgb (test code = Hgb) 7.2 14.0-18.0 [facility] CampusHitlpwaENDVUXTCRW7424-34-93 18:13:00 Test Item Value Reference Range Interpretation Comments Hct (test code = Hct) 21.2 42.0-54.0 [place] 155092-08-05 18:13:00 Test Item Value Reference Range Interpretation Comments MCV (test code = MCV) 110.1 80.0-94.0 [facility] CampusBkesbztPFCTYDABTJ4405-57-39 18:13:00 Test Item Value Reference Range Interpretation Comments MCH (test code = MCH) 37.1 pg 27.0-31.0 [facility] CampusCpfbyrkDMOIEIYHHF9200-89-08 18:13:00 Test Item Value Reference Range Interpretation Comments MCHC (test code = MCHC) 33.7 32.0-36.0 [facility] Camp[id number] 18:13:00 Test Item Value Reference Range Interpretation Comments RDW (test code = RDW) 25.8 11.5-14.5 [facility] CampusAjzhsjkZYFHIVQBUZ7423-11-67 18:13:00 Test Item Value Reference Range Interpretation Comments Platelet (test code = Platelet) 216 133-450 [facility] CampusZwabtqpLEVXLEGRIF8713-34-80 18:13:00 Test Item Value Reference Range Interpretation Comments MPV (test code = MPV) 8.2 7.4-10.4 [facility]2022-08-05 18:13:00 Test Item Value Reference Range Interpretation Comments Total Protein (test code = Total 6.6 6.4-8.4 Protein) [facility] CampusJqbbyuwQMZNFHKNAB8204-22-29 18:13:00 Test Item Value Reference Range Interpretation Comments PT (test code = PT) 16.9 s 12.0-14.7 [facility] CampusPkhuepcLXWEXXDIQI7062-91-08 18:13:00 Test Item Value Reference Range Interpretation Comments INR (test code = INR) 1.39 1 0.85-1.17 [facility] CampusKjkhmaiBUQIVHATRR2968-80-79 18:13:00 Test Item Value Reference Range Interpretation Comments PTT (test code = PTT) 35.0 s 22.9-35.8 [facility] CampusRiencivMMVEZGZPVP1493-35-94 18:13:00 Test Item Value Reference Range Interpretation Comments Plt Morph (test code = Normal (01/02/22 1:13 PM) Plt Morph) [facility] CampusRnkamozJBAOZGWUHT7622-92-39 18:13:00 Test Item Value Reference Range Interpretation Comments Segs (test code = Segs) 76.4 45.0-75.0 [facility] CampusDelkgcwICMWYQGFGI4850-25-65 18:13:00 Test Item Value Reference Range Interpretation Comments Lymphocytes (test code = Lymphocytes) 14.6 20.0-40.0 [facility] CampusQvzdzduEBKUAROAWU9690-96-19 18:13:00 Test Item Value Reference Range Interpretation Comments Monocytes (test code = Monocytes) 7.5 2.0-12.0 [facility] CampusCotxopbBFKRPRNNSK6486-92-33 18:13:00 Test Item Value Reference Range Interpretation Comments Eosinophils (test code = 0.6 See_Comment [A utomated message] The Eosinophils) system which ge nerated this result tra nsmitted reference range : <=4.0. The reference r samantha was not used to int erpret this result as normal/abnormal . [facility] CampusWxmtvvjGUJNRGYNAZ8078-95-67 18:13:00 Test Item Value Reference Range Interpretation Comments Basophils (test code = 0.9 See_Comment [Aut omated message] The Basophils) system which ge nerated this result tra nsmitted reference range : <=1.0. The reference r samantha was not used to int erpret this result as normal/abnormal . [facility] CampusVcubebdVQAWEYSDTW4867-42-23 18:13:00 Test Item Value Reference Range Interpretation Comments Neutrophils # (test code = Neutrophils 3.7 1.5-8.1 #) [facility]2022-08-05 18:13:00 Test Item Value Reference Range Interpretation Comments Albumin Lvl (test code = Albumin Lvl) 3.1 3.5-5.0 [facility] CampusFmppsceOVMHNKOCNW7619-60-20 18:13:00 Test Item Value Reference Range Interpretation Comments Lymphocytes # (test code = Lymphocytes 0.7 1.0-5.5 #) [place] [address]-08-05 18:13:00 Test Item Value Reference Range Interpretation Comments Monocytes # (test code 0.4 See_Comment [Aut omated message] The = Monocytes #) system which generated this result tra nsmitted reference range : <=0.8. The reference r samantha was not used to int erpret this result as normal/abnormal . [place] [address]-08-05 18:13:00 Test Item Value Reference Range Interpretation Comments Anisocyte (test code = 2+ *ABN*(01/02/22 1:13 Anisocyte) PM) [place] [address]-08-05 18:13:00 Test Item Value Reference Range Interpretation Comments Macrocyte (test code = 2+ *ABN*(01/02/22 1:13 Macrocyte) PM) [place] [address]-08-05 18:13:00 Test Item Value Reference Range Interpretation Comments ALT (test code = ALT) 36 See_Comment [Auto mated message] The system which ge nerated this result transmit swathi reference range : <=65. The reference range was not used to interpr et this result as deny l/abnormal. [place] [address]-08-05 18:13:00 Test Item Value Reference Range Interpretation Comments AST (test code = AST) 28 See_Comment [Auto mated message] The system which ge nerated this result transmit swathi reference range : <=37. The reference range was not used to interpr et this result as deny l/abnormal. [place] [address]-08-05 18:13:00 Test Item Value Reference Range Interpretation Comments Alk Phos (test code = Alk Phos) 231 39-136 [place] [address]-08-05 18:13:00 Test Item Value Reference Range Interpretation Comments Bili Total (test code = Bili Total) 1.0 0.2-1.3 [place] [address]-08-05 18:13:00 Test Item Value Reference Range Interpretation Comments AGAP (test code = AGAP) 11.4 10.0-20.0 [place] [address]-08-05 18:13:00 Test Item Value Reference Range Interpretation Comments B/C Ratio (test code = B/C Ratio) 8 1 6-25 [facility]2022-08-05 18:13:00 Test Item Value Reference Range Interpretation Comments Globulin (test code = Globulin) 3.5 2.7-4.2 [place] 506282-08-05 18:13:00 Test Item Value Reference Range Interpretation Comments A/G Ratio (test code = A/G Ratio) 0.9 1 0.7-1.6 [place] 506282-08-05 18:13:00 Test Item Value Reference Range Interpretation Comments eGFR (test code = eGFR) 9 [facility] CampusQdslogqESBANTNMYI8891-22-12 18:13:00 Test Item Value Reference Range Interpretation Comments WBC (test code = WBC) 4.8 3.7-10.4 [place] 155092-08-05 18:13:00 Test Item Value Reference Range Interpretation Comments RBC (test code = RBC) 1.93 4.70-6.10 [facility] CampusIaxiwsmWMEZCBEISF1904-67-95 18:13:00 Test Item Value Reference Range Interpretation Comments Hgb (test code = Hgb) 7.2 14.0-18.0 [facility] CampusQxpxagpQCHVENSFJG0038-99-84 18:13:00 Test Item Value Reference Range Interpretation Comments Hct (test code = Hct) 21.2 42.0-54.0 [facility] CampusYbualuxMKDMZOLAXN1535-72-69 18:13:00 Test Item Value Reference Range Interpretation Comments MCV (test code = MCV) 110.1 80.0-94.0 [facility] CampusPtcwgvvLTEXNVKFET2204-55-31 18:13:00 Test Item Value Reference Range Interpretation Comments MCH (test code = MCH) 37.1 pg 27.0-31.0 [place] 155092-08-05 18:13:00 Test Item Value Reference Range Interpretation Comments MCHC (test code = MCHC) 33.7 32.0-36.0 [place] 155092-08-05 18:13:00 Test Item Value Reference Range Interpretation Comments RDW (test code = RDW) 25.8 11.5-14.5 [facility] CampusNfsoaieUFNMICHXBQ3156-33-30 18:13:00 Test Item Value Reference Range Interpretation Comments Platelet (test code = Platelet) 216 133-450 [place] 155092-08-05 18:13:00 Test Item Value Reference Range Interpretation Comments MPV (test code = MPV) 8.2 7.4-10.4 [place] [address]-08-05 18:13:00 Test Item Value Reference Range Interpretation Comments PT (test code = PT) 16.9 s 12.0-14.7 [place] [address]-08-05 18:13:00 Test Item Value Reference Range Interpretation Comments INR (test code = INR) 1.39 1 0.85-1.17 [place] [address]-08-05 18:13:00 Test Item Value Reference Range Interpretation Comments PTT (test code = PTT) 35.0 s 22.9-35.8 [place] [address]-08-05 18:13:00 Test Item Value Reference Range Interpretation Comments Plt Morph (test code = Normal (01/02/22 1:13 PM) Plt Morph) [place] 155092-08-05 18:13:00 Test Item Value Reference Range Interpretation Comments Segs (test code = Segs) 76.4 45.0-75.0 [place] 155092-08-05 18:13:00 Test Item Value Reference Range Interpretation Comments Lymphocytes (test code = Lymphocytes) 14.6 20.0-40.0 [place] 155092-08-05 18:13:00 Test Item Value Reference Range Interpretation Comments Monocytes (test code = Monocytes) 7.5 2.0-12.0 [place] [address]-08-05 18:13:00 Test Item Value Reference Range Interpretation Comments Eosinophils (test code = 0.6 See_Comment [A utomated message] The Eosinophils) system which ge nerated this result tra nsmitted reference range : <=4.0. The reference r samantha was not used to int erpret this result as normal/abnormal . [place] [address]-08-05 18:13:00 Test Item Value Reference Range Interpretation Comments Basophils (test code = 0.9 See_Comment [Aut omated message] The Basophils) system which ge nerated this result tra nsmitted reference range : <=1.0. The reference r samantha was not used to int erpret this result as normal/abnormal . [place] 155092-08-05 18:13:00 Test Item Value Reference Range Interpretation Comments Neutrophils # (test code = Neutrophils 3.7 1.5-8.1 #) [facility] CampusKcpaffqTKTEEVUFLJ6127-52-49 18:13:00 Test Item Value Reference Range Interpretation Comments Lymphocytes # (test code = Lymphocytes 0.7 1.0-5.5 #) [facility] CampusIgfgdbhSRNBXKVQYZ5484-35-90 18:13:00 Test Item Value Reference Range Interpretation Comments Monocytes # (test code 0.4 See_Comment [Aut omated message] The = Monocytes #) system which generated this result tra nsmitted reference range : <=0.8. The reference r samantha was not used to int erpret this result as normal/abnormal . [facility] CampusJonsigqOZRMZSVBKA7195-75-97 18:13:00 Test Item Value Reference Range Interpretation Comments Anisocyte (test code = 2+ *ABN*(01/02/22 1:13 Anisocyte) PM) [facility] CampusOruudajQNQPDAXQQO3278-84-74 18:13:00 Test Item Value Reference Range Interpretation Comments Macrocyte (test code = 2+ *ABN*(01/02/22 1:13 Macrocyte) PM) [facility] [id number] 18:13:00 Test Item Value Reference Range Interpretation Comments HS Troponin I (test code = HS Troponin 156 I) [facility]2022-08-05 18:13:00 Test Item Value Reference Range Interpretation Comments Glucose Lvl (test code = Glucose Lvl) 237 70-99 [facility]2022-08-05 18:13:00 Test Item Value Reference Range Interpretation Comments BUN (test code = BUN) 46 7-22 [facility]2022-08-05 18:13:00 Test Item Value Reference Range Interpretation Comments Creatinine Lvl (test code = Creatinine 5.92 0.50-1.40 Lvl) [facility]2022-08-05 18:13:00 Test Item Value Reference Range Interpretation Comments Sodium Lvl (test code = Sodium Lvl) 134 135-145 [facility]2022-08-05 18:13:00 Test Item Value Reference Range Interpretation Comments Potassium Lvl (test code = Potassium 4.4 3.5-5.1 Lvl) [facility]2022-08-05 18:13:00 Test Item Value Reference Range Interpretation Comments Chloride Lvl (test code = Chloride Lvl) 98 95-109 [facility] CenterTarsa TherapeuticsHEATHER [place] [id number] 18:13:00 Test Item Value Reference Range Interpretation Comments CO2 (test code = CO2) 29 24-32 [place] 506282-08-05 18:13:00 Test Item Value Reference Range Interpretation Comments Calcium Lvl (test code = Calcium Lvl) 9.2 8.5-10.5 [facility] CenterTarsa TherapeuticsHEATHER [place] [id number] 18:13:00 Test Item Value Reference Range Interpretation Comments Total Protein (test code = Total 6.6 6.4-8.4 Protein) [place] 506282-08-05 18:13:00 Test Item Value Reference Range Interpretation Comments Albumin Lvl (test code = Albumin Lvl) 3.1 3.5-5.0 [facility] CenterDispatch [id number] 18:13:00 Test Item Value Reference Range Interpretation Comments ALT (test code = ALT) 36 See_Comment [Auto mated message] The system which ge nerated this result transmit swathi reference range : <=65. The reference range was not used to interpr et this result as deny l/abnormal. [facility] CenterDispatch [id number] 18:13:00 Test Item Value Reference Range Interpretation Comments AST (test code = AST) 28 See_Comment [Auto mated message] The system which ge nerated this result transmit swathi reference range : <=37. The reference range was not used to interpr et this result as deny l/abnormal. [facility] CenterDispatch [id number] 18:13:00 Test Item Value Reference Range Interpretation Comments Alk Phos (test code = Alk Phos) 231 39-136 [facility] CenterDispatch [id number] 18:13:00 Test Item Value Reference Range Interpretation Comments Bili Total (test code = Bili Total) 1.0 0.2-1.3 [facility] CenterYospace Technologies [id number] 18:13:00 Test Item Value Reference Range Interpretation Comments AGAP (test code = AGAP) 11.4 10.0-20.0 [facility] CenterDispatch [id number] 18:13:00 Test Item Value Reference Range Interpretation Comments B/C Ratio (test code = B/C Ratio) 8 1 6-25 [place] 506282-08-05 18:13:00 Test Item Value Reference Range Interpretation Comments Globulin (test code = Globulin) 3.5 2.7-4.2 [place] 506282-08-05 18:13:00 Test Item Value Reference Range Interpretation Comments A/G Ratio (test code = A/G Ratio) 0.9 1 0.7-1.6 [place] 506282-08-05 18:13:00 Test Item Value Reference Range Interpretation Comments eGFR (test code = eGFR) 9 [place] 155092-08-05 18:13:00 Test Item Value Reference Range Interpretation Comments WBC (test code = WBC) 4.8 3.7-10.4 [place] 155092-08-05 18:13:00 Test Item Value Reference Range Interpretation Comments RBC (test code = RBC) 1.93 4.70-6.10 [place] 155092-08-05 18:13:00 Test Item Value Reference Range Interpretation Comments Hgb (test code = Hgb) 7.2 14.0-18.0 [place] [address]-08-05 18:13:00 Test Item Value Reference Range Interpretation Comments Hct (test code = Hct) 21.2 42.0-54.0 [place] 155092-08-05 18:13:00 Test Item Value Reference Range Interpretation Comments MCV (test code = MCV) 110.1 80.0-94.0 [place] 155092-08-05 18:13:00 Test Item Value Reference Range Interpretation Comments MCH (test code = MCH) 37.1 pg 27.0-31.0 [place] 155092-08-05 18:13:00 Test Item Value Reference Range Interpretation Comments MCHC (test code = MCHC) 33.7 32.0-36.0 [place] [address]-08-05 18:13:00 Test Item Value Reference Range Interpretation Comments RDW (test code = RDW) 25.8 11.5-14.5 [place] 155092-08-05 18:13:00 Test Item Value Reference Range Interpretation Comments Platelet (test code = Platelet) 216 133-450 [place] 155092-08-05 18:13:00 Test Item Value Reference Range Interpretation Comments MPV (test code = MPV) 8.2 7.4-10.4 [place] 155092-08-05 18:13:00 Test Item Value Reference Range Interpretation Comments PT (test code = PT) 16.9 s 12.0-14.7 [place] 155092-08-05 18:13:00 Test Item Value Reference Range Interpretation Comments INR (test code = INR) 1.39 1 0.85-1.17 [place] 155092-08-05 18:13:00 Test Item Value Reference Range Interpretation Comments PTT (test code = PTT) 35.0 s 22.9-35.8 [place] 155092-08-05 18:13:00 Test Item Value Reference Range Interpretation Comments Plt Morph (test code = Normal (01/02/22 1:13 PM) Plt Morph) [facility] CampusTpaojofPWGEVUEKQR1615-21-01 18:13:00 Test Item Value Reference Range Interpretation Comments Segs (test code = Segs) 76.4 45.0-75.0 [facility] CampusYwnklanBUBLPMQTKF8753-62-64 18:13:00 Test Item Value Reference Range Interpretation Comments Lymphocytes (test code = Lymphocytes) 14.6 20.0-40.0 [facility] CampusPzuhtrrAVABZHLESQ8267-26-48 18:13:00 Test Item Value Reference Range Interpretation Comments Monocytes (test code = Monocytes) 7.5 2.0-12.0 [place] 155092-08-05 18:13:00 Test Item Value Reference Range Interpretation Comments Eosinophils (test code = 0.6 See_Comment [A utomated message] The Eosinophils) system which ge nerated this result tra nsmitted reference range : <=4.0. The reference r samantha was not used to int erpret this result as normal/abnormal . [place] 155092-08-05 18:13:00 Test Item Value Reference Range Interpretation Comments Basophils (test code = 0.9 See_Comment [Aut omated message] The Basophils) system which ge nerated this result tra nsmitted reference range : <=1.0. The reference r samantha was not used to int erpret this result as normal/abnormal . [place] 155092-08-05 18:13:00 Test Item Value Reference Range Interpretation Comments Neutrophils # (test code = Neutrophils 3.7 1.5-8.1 #) [facility] CampusDvmkmauUPBABVUWLA7815-97-84 18:13:00 Test Item Value Reference Range Interpretation Comments Lymphocytes # (test code = Lymphocytes 0.7 1.0-5.5 #) [facility] CampusCldbzanWJQLZLUVIG5194-44-52 18:13:00 Test Item Value Reference Range Interpretation Comments Monocytes # (test code 0.4 See_Comment [Aut omated message] The = Monocytes #) system which generated this result tra nsmitted reference range : <=0.8. The reference r samantha was not used to int erpret this result as normal/abnormal . [facility] CampusDtmixrsXNHUBNVACJ3530-32-04 18:13:00 Test Item Value Reference Range Interpretation Comments Anisocyte (test code = 2+ *ABN*(01/02/22 1:13 Anisocyte) PM) [facility] CampusQwdtipeQXXGAFSXOV1710-28-60 18:13:00 Test Item Value Reference Range Interpretation Comments Macrocyte (test code = 2+ *ABN*(01/02/22 1:13 Macrocyte) PM) [facility] CenterCARD[facility]AC [id number] 18:13:00 Test Item Value Reference Range Interpretation Comments HS Troponin I (test code = HS Troponin 156 I) [facility]2022-08-05 18:13:00 Test Item Value Reference Range Interpretation Comments Glucose Lvl (test code = Glucose Lvl) 237 70-99 [facility]2022-08-05 18:13:00 Test Item Value Reference Range Interpretation Comments BUN (test code = BUN) 46 7-22 [facility]2022-08-05 18:13:00 Test Item Value Reference Range Interpretation Comments Creatinine Lvl (test code = Creatinine 5.92 0.50-1.40 Lvl) [facility]2022-08-05 18:13:00 Test Item Value Reference Range Interpretation Comments Sodium Lvl (test code = Sodium Lvl) 134 135-145 [facility]2022-08-05 18:13:00 Test Item Value Reference Range Interpretation Comments Potassium Lvl (test code = Potassium 4.4 3.5-5.1 Lvl) [facility]2022-08-05 18:13:00 Test Item Value Reference Range Interpretation Comments Chloride Lvl (test code = Chloride Lvl) 98 95-109 [facility] CenterTarsa TherapeuticsHEATHER [place] [id number] 18:13:00 Test Item Value Reference Range Interpretation Comments CO2 (test code = CO2) 29 24-32 [place] 506282-08-05 18:13:00 Test Item Value Reference Range Interpretation Comments Calcium Lvl (test code = Calcium Lvl) 9.2 8.5-10.5 [facility] CenterTarsa TherapeuticsHEATHER [place] [id number] 18:13:00 Test Item Value Reference Range Interpretation Comments Total Protein (test code = Total 6.6 6.4-8.4 Protein) [facility] CenterTarsa TherapeuticsHEATHER [place] [id number] 18:13:00 Test Item Value Reference Range Interpretation Comments Albumin Lvl (test code = Albumin Lvl) 3.1 3.5-5.0 [facility] CenterTarsa TherapeuticsHEATHER [place] [id number] 18:13:00 Test Item Value Reference Range Interpretation Comments ALT (test code = ALT) 36 See_Comment [Auto mated message] The system which ge nerated this result transmit swathi reference range : <=65. The reference range was not used to interpr et this result as deny l/abnormal. [facility] CenterDispatch [id number] 18:13:00 Test Item Value Reference Range Interpretation Comments AST (test code = AST) 28 See_Comment [Auto mated message] The system which ge nerated this result transmit swathi reference range : <=37. The reference range was not used to interpr et this result as deny l/abnormal. [facility] CenterDispatch [id number] 18:13:00 Test Item Value Reference Range Interpretation Comments Alk Phos (test code = Alk Phos) 231 39-136 [facility] CenterDispatch [id number] 18:13:00 Test Item Value Reference Range Interpretation Comments Bili Total (test code = Bili Total) 1.0 0.2-1.3 [facility] CenterYospace Technologies [id number] 18:13:00 Test Item Value Reference Range Interpretation Comments AGAP (test code = AGAP) 11.4 10.0-20.0 [facility] CenterDispatch [id number] 18:13:00 Test Item Value Reference Range Interpretation Comments B/C Ratio (test code = B/C Ratio) 8 1 6-25 [facility] CenterannHEATHER [place] [id number] 18:13:00 Test Item Value Reference Range Interpretation Comments Globulin (test code = Globulin) 3.5 2.7-4.2 [place] 506282-08-05 18:13:00 Test Item Value Reference Range Interpretation Comments A/G Ratio (test code = A/G Ratio) 0.9 1 0.7-1.6 [place] [address]-08-05 18:13:00 Test Item Value Reference Range Interpretation Comments eGFR (test code = eGFR) 9 [place] [address]-08-05 18:13:00 Test Item Value Reference Range Interpretation Comments WBC (test code = WBC) 4.8 3.7-10.4 [place] [address]-08-05 18:13:00 Test Item Value Reference Range Interpretation Comments RBC (test code = RBC) 1.93 4.70-6.10 [place] [address]-08-05 18:13:00 Test Item Value Reference Range Interpretation Comments Hgb (test code = Hgb) 7.2 14.0-18.0 [place] [address]-08-05 18:13:00 Test Item Value Reference Range Interpretation Comments Hct (test code = Hct) 21.2 42.0-54.0 [place] [address]-08-05 18:13:00 Test Item Value Reference Range Interpretation Comments MCV (test code = MCV) 110.1 80.0-94.0 [place] [place] [address]-[place]05 18:13:00 Test Item Value Reference Range Interpretation Comments MCH (test code = MCH) 37.1 pg 27.0-31.0 [place] [address]-08-05 18:13:00 Test Item Value Reference Range Interpretation Comments MCHC (test code = MCHC) 33.7 32.0-36.0 [place] [address]-08-05 18:13:00 Test Item Value Reference Range Interpretation Comments RDW (test code = RDW) 25.8 11.5-14.5 [place] 155092-08-05 18:13:00 Test Item Value Reference Range Interpretation Comments Platelet (test code = Platelet) 216 133-450 [place] 155092-08-05 18:13:00 Test Item Value Reference Range Interpretation Comments MPV (test code = MPV) 8.2 7.4-10.4 [facility]XfffpvuKIXOFPLWAW1581-74-04 18:13:00 Test Item Value Reference Range Interpretation Comments PT (test code = PT) 16.9 s 12.0-14.7 [facility] CampusFtbxretDRTPNFYDWX0382-84-83 18:13:00 Test Item Value Reference Range Interpretation Comments INR (test code = INR) 1.39 1 0.85-1.17 [place] 155092-08-05 18:13:00 Test Item Value Reference Range Interpretation Comments PTT (test code = PTT) 35.0 s 22.9-35.8 [place] [address]-08-05 18:13:00 Test Item Value Reference Range Interpretation Comments Plt Morph (test code = Normal (01/02/22 1:13 PM) Plt Morph) [place] 155092-08-05 18:13:00 Test Item Value Reference Range Interpretation Comments Segs (test code = Segs) 76.4 45.0-75.0 [place] [address]-08-05 18:13:00 Test Item Value Reference Range Interpretation Comments Lymphocytes (test code = Lymphocytes) 14.6 20.0-40.0 [place] [address]-08-05 18:13:00 Test Item Value Reference Range Interpretation Comments Monocytes (test code = Monocytes) 7.5 2.0-12.0 [place] 155092-08-05 18:13:00 Test Item Value Reference Range Interpretation Comments Eosinophils (test code = 0.6 See_Comment [A utomated message] The Eosinophils) system which ge nerated this result tra nsmitted reference range : <=4.0. The reference r samantha was not used to int erpret this result as normal/abnormal . [place] 155092-08-05 18:13:00 Test Item Value Reference Range Interpretation Comments Basophils (test code = 0.9 See_Comment [Aut omated message] The Basophils) system which ge nerated this result tra nsmitted reference range : <=1.0. The reference r samantha was not used to int erpret this result as normal/abnormal . [place] 155092-08-05 18:13:00 Test Item Value Reference Range Interpretation Comments Neutrophils # (test code = Neutrophils 3.7 1.5-8.1 #) [facility] CampusRkggsaaZGVPZGPJKP0027-08-37 18:13:00 Test Item Value Reference Range Interpretation Comments Lymphocytes # (test code = Lymphocytes 0.7 1.0-5.5 #) [place] 155092-08-05 18:13:00 Test Item Value Reference Range Interpretation Comments Monocytes # (test code 0.4 See_Comment [Aut omated message] The = Monocytes #) system which generated this result tra nsmitted reference range : <=0.8. The reference r samantha was not used to int erpret this result as normal/abnormal . [facility] CampusHbmweaaGOJPVIOQWX2546-24-20 18:13:00 Test Item Value Reference Range Interpretation Comments Anisocyte (test code = 2+ *ABN*(01/02/22 1:13 Anisocyte) PM) [place] 155092-08-05 18:13:00 Test Item Value Reference Range Interpretation Comments Macrocyte (test code = 2+ *ABN*(01/02/22 1:13 Macrocyte) PM) [id number] 18:13:00 Test Item Value Reference Range Interpretation Comments HS Troponin I (test code = HS Troponin 156 I) [facility]2022-08-05 18:13:00 Test Item Value Reference Range Interpretation Comments Glucose Lvl (test code = Glucose Lvl) 237 70-99 [facility]2022-08-05 18:13:00 Test Item Value Reference Range Interpretation Comments BUN (test code = BUN) 46 7-22 [facility]2022-08-05 18:13:00 Test Item Value Reference Range Interpretation Comments Creatinine Lvl (test code = Creatinine 5.92 0.50-1.40 Lvl) [facility]2022-08-05 18:13:00 Test Item Value Reference Range Interpretation Comments Sodium Lvl (test code = Sodium Lvl) 134 135-145 [facility]2022-08-05 18:13:00 Test Item Value Reference Range Interpretation Comments Potassium Lvl (test code = Potassium 4.4 3.5-5.1 Lvl) [facility]2022-08-05 18:13:00 Test Item Value Reference Range Interpretation Comments Chloride Lvl (test code = Chloride Lvl) 98 95-109 [address]08-05 18:13:00 Test Item Value Reference Range Interpretation Comments CO2 (test code = CO2) 29 24-32 [address]08-05 18:13:00 Test Item Value Reference Range Interpretation Comments Calcium Lvl (test code = Calcium Lvl) 9.2 8.5-10.5 [address]08-05 18:13:00 Test Item Value Reference Range Interpretation Comments Total Protein (test code = Total 6.6 6.4-8.4 Protein) [address]08-05 18:13:00 Test Item Value Reference Range Interpretation Comments Albumin Lvl (test code = Albumin Lvl) 3.1 3.5-5.0 [address]08-05 18:13:00 Test Item Value Reference Range Interpretation Comments ALT (test code = ALT) 36 See_Comment [Auto mated message] The system which ge nerated this result transmit swathi reference range : <=65. The reference range was not used to interpr et this result as deny l/abnormal. [facility] CenterYospace Technologies [id number] 18:13:00 Test Item Value Reference Range Interpretation Comments AST (test code = AST) 28 See_Comment [Auto mated message] The system which ge nerated this result transmit swathi reference range : <=37. The reference range was not used to interpr et this result as deny l/abnormal. [address]08-05 18:13:00 Test Item Value Reference Range Interpretation Comments Alk Phos (test code = Alk Phos) 231 39-136 [facility] CenterDispatch [id number] 18:13:00 Test Item Value Reference Range Interpretation Comments Bili Total (test code = Bili Total) 1.0 0.2-1.3 [address]08-05 18:13:00 Test Item Value Reference Range Interpretation Comments AGAP (test code = AGAP) 11.4 10.0-20.0 [address]08-05 18:13:00 Test Item Value Reference Range Interpretation Comments B/C Ratio (test code = B/C Ratio) 8 1 6-25 [facility] CenterDispatch [id number] 18:13:00 Test Item Value Reference Range Interpretation Comments Globulin (test code = Globulin) 3.5 2.7-4.2 [facility] CenterCHEM [id number] 18:13:00 Test Item Value Reference Range Interpretation Comments A/G Ratio (test code = A/G Ratio) 0.9 1 0.7-1.6 [facility] [id number] 18:13:00 Test Item Value Reference Range Interpretation Comments eGFR (test code = eGFR) 9 [facility] CampusClvxmzhDNAOEOQKQH1723-88-24 18:13:00 Test Item Value Reference Range Interpretation Comments WBC (test code = WBC) 4.8 3.7-10.4 [facility] CampusSdolmdsJEGVYKNREH9399-17-57 18:13:00 Test Item Value Reference Range Interpretation Comments RBC (test code = RBC) 1.93 4.70-6.10 [facility] CampusUwrxrqjPZDBIPUGXE2148-70-33 18:13:00 Test Item Value Reference Range Interpretation Comments Hgb (test code = Hgb) 7.2 14.0-18.0 [place] 155092-08-05 18:13:00 Test Item Value Reference Range Interpretation Comments Hct (test code = Hct) 21.2 42.0-54.0 [facility] CampusRelktswEPGQZIRQQX0037-36-31 18:13:00 Test Item Value Reference Range Interpretation Comments MCV (test code = MCV) 110.1 80.0-94.0 [facility] CampusLoqycnqHYNFWMKSZQ9418-51-08 18:13:00 Test Item Value Reference Range Interpretation Comments MCH (test code = MCH) 37.1 pg 27.0-31.0 [facility] CampusFkplphvPINNEXZDCZ6330-53-54 18:13:00 Test Item Value Reference Range Interpretation Comments MCHC (test code = MCHC) 33.7 32.0-36.0 [place] 155092-08-05 18:13:00 Test Item Value Reference Range Interpretation Comments RDW (test code = RDW) 25.8 11.5-14.5 [facility] Camp[id number] 18:13:00 Test Item Value Reference Range Interpretation Comments Platelet (test code = Platelet) 216 133-450 [facility] CampusJcbtyzwSYMVMXWGJQ3830-72-97 18:13:00 Test Item Value Reference Range Interpretation Comments MPV (test code = MPV) 8.2 7.4-10.4 [place] 155092-08-05 18:13:00 Test Item Value Reference Range Interpretation Comments PT (test code = PT) 16.9 s 12.0-14.7 [place] 155092-08-05 18:13:00 Test Item Value Reference Range Interpretation Comments INR (test code = INR) 1.39 1 0.85-1.17 [place] 155092-08-05 18:13:00 Test Item Value Reference Range Interpretation Comments PTT (test code = PTT) 35.0 s 22.9-35.8 [place] [address]-08-05 18:13:00 Test Item Value Reference Range Interpretation Comments Plt Morph (test code = Normal (01/02/22 1:13 PM) Plt Morph) [place] 155092-08-05 18:13:00 Test Item Value Reference Range Interpretation Comments Segs (test code = Segs) 76.4 45.0-75.0 [place] 155092-08-05 18:13:00 Test Item Value Reference Range Interpretation Comments Lymphocytes (test code = Lymphocytes) 14.6 20.0-40.0 [place] 155092-08-05 18:13:00 Test Item Value Reference Range Interpretation Comments Monocytes (test code = Monocytes) 7.5 2.0-12.0 [facility] CampusDyutcvdYBFHFXIDAC2925-23-49 18:13:00 Test Item Value Reference Range Interpretation Comments Eosinophils (test code = 0.6 See_Comment [A utomated message] The Eosinophils) system which ge nerated this result tra nsmitted reference range : <=4.0. The reference r samantha was not used to int erpret this result as normal/abnormal . [place] 1550[place]-08-05 18:13:00 Test Item Value Reference Range Interpretation Comments Basophils (test code = 0.9 See_Comment [Aut omated message] The Basophils) system which ge nerated this result tra nsmitted reference range : <=1.0. The reference r samantha was not used to int erpret this result as normal/abnormal . [place] 155092-08-05 18:13:00 Test Item Value Reference Range Interpretation Comments Neutrophils # (test code = Neutrophils 3.7 1.5-8.1 #) [place] 155092-08-05 18:13:00 Test Item Value Reference Range Interpretation Comments Lymphocytes # (test code = Lymphocytes 0.7 1.0-5.5 #) [facility] CampusUupvqpiUXFCPKZIYR6044-25-16 18:13:00 Test Item Value Reference Range Interpretation Comments Monocytes # (test code 0.4 See_Comment [Aut omated message] The = Monocytes #) system which generated this result tra nsmitted reference range : <=0.8. The reference r samantha was not used to int erpret this result as normal/abnormal . [facility] CampusAnemsmcMLLMVMEFNX6243-41-50 18:13:00 Test Item Value Reference Range Interpretation Comments Anisocyte (test code = 2+ *ABN*(01/02/22 1:13 Anisocyte) PM) [facility] CampusJtdrsikHZLFGKTQTB6068-47-70 18:13:00 Test Item Value Reference Range Interpretation Comments Macrocyte (test code = 2+ *ABN*(01/02/22 1:13 Macrocyte) PM) [facility] [id number] 18:13:00 Test Item Value Reference Range Interpretation Comments HS Troponin I (test code = HS Troponin 156 I) [facility]2022-08-05 18:13:00 Test Item Value Reference Range Interpretation Comments Glucose Lvl (test code = Glucose Lvl) 237 70-99 [facility]2022-08-05 18:13:00 Test Item Value Reference Range Interpretation Comments BUN (test code = BUN) 46 7-22 [facility]2022-08-05 18:13:00 Test Item Value Reference Range Interpretation Comments Creatinine Lvl (test code = Creatinine 5.92 0.50-1.40 Lvl) [facility]2022-08-05 18:13:00 Test Item Value Reference Range Interpretation Comments Sodium Lvl (test code = Sodium Lvl) 134 135-145 [facility]2022-08-05 18:13:00 Test Item Value Reference Range Interpretation Comments Potassium Lvl (test code = Potassium 4.4 3.5-5.1 Lvl) [facility]2022-08-05 18:13:00 Test Item Value Reference Range Interpretation Comments Chloride Lvl (test code = Chloride Lvl) 98 95-109 [facility]2022-08-05 18:13:00 Test Item Value Reference Range Interpretation Comments CO2 (test code = CO2) 29 24-32 [place] 506[place]-08-05 18:13:00 Test Item Value Reference Range Interpretation Comments Calcium Lvl (test code = Calcium Lvl) 9.2 8.5-10.5 [place] 506[place]-08-05 18:13:00 Test Item Value Reference Range Interpretation Comments Total Protein (test code = Total 6.6 6.4-8.4 Protein) [place] [address]-08-05 18:13:00 Test Item Value Reference Range Interpretation Comments Albumin Lvl (test code = Albumin Lvl) 3.1 3.5-5.0 [place] [address]-08-05 18:13:00 Test Item Value Reference Range Interpretation Comments ALT (test code = ALT) 36 See_Comment [Auto mated message] The system which ge nerated this result transmit swathi reference range : <=65. The reference range was not used to interpr et this result as deny l/abnormal. [place] [address]-08-05 18:13:00 Test Item Value Reference Range Interpretation Comments AST (test code = AST) 28 See_Comment [Auto mated message] The system which ge nerated this result transmit swathi reference range : <=37. The reference range was not used to interpr et this result as deny l/abnormal. [place]-08-05 18:13:00 Test Item Value Reference Range Interpretation Comments Alk Phos (test code = Alk Phos) 231 39-136 [place] 506[place]-08-05 18:13:00 Test Item Value Reference Range Interpretation Comments Bili Total (test code = Bili Total) 1.0 0.2-1.3 [place] [address]-08-05 18:13:00 Test Item Value Reference Range Interpretation Comments AGAP (test code = AGAP) 11.4 10.0-20.0 [place] [address]-08-05 18:13:00 Test Item Value Reference Range Interpretation Comments B/C Ratio (test code = B/C Ratio) 8 1 6-25 [place] [address]-08-05 18:13:00 Test Item Value Reference Range Interpretation Comments Globulin (test code = Globulin) 3.5 2.7-4.2 [place] 506282-08-05 18:13:00 Test Item Value Reference Range Interpretation Comments A/G Ratio (test code = A/G Ratio) 0.9 1 0.7-1.6 [place] 506[place]-08-05 18:13:00 Test Item Value Reference Range Interpretation Comments eGFR (test code = eGFR) 9 [place] [address]-08-05 18:13:00 Test Item Value Reference Range Interpretation Comments WBC (test code = WBC) 4.8 3.7-10.4 [place] [address]-08-05 18:13:00 Test Item Value Reference Range Interpretation Comments RBC (test code = RBC) 1.93 4.70-6.10 [place] [address]-08-05 18:13:00 Test Item Value Reference Range Interpretation Comments Hgb (test code = Hgb) 7.2 14.0-18.0 [address]08-05 18:13:00 Test Item Value Reference Range Interpretation Comments Hct (test code = Hct) 21.2 42.0-54.0 [place] [address]-08-05 18:13:00 Test Item Value Reference Range Interpretation Comments MCV (test code = MCV) 110.1 80.0-94.0 [place] [address]-08-05 18:13:00 Test Item Value Reference Range Interpretation Comments MCH (test code = MCH) 37.1 pg 27.0-31.0 [place] [address]-08-05 18:13:00 Test Item Value Reference Range Interpretation Comments MCHC (test code = MCHC) 33.7 32.0-36.0 [place] 155092-08-05 18:13:00 Test Item Value Reference Range Interpretation Comments RDW (test code = RDW) 25.8 11.5-14.5 [place] [address]-08-05 18:13:00 Test Item Value Reference Range Interpretation Comments Platelet (test code = Platelet) 216 133-450 [place] 155092-08-05 18:13:00 Test Item Value Reference Range Interpretation Comments MPV (test code = MPV) 8.2 7.4-10.4 [place] [address]-08-05 18:13:00 Test Item Value Reference Range Interpretation Comments PT (test code = PT) 16.9 s 12.0-14.7 [place] 155092-08-05 18:13:00 Test Item Value Reference Range Interpretation Comments INR (test code = INR) 1.39 1 0.85-1.17 [place] [address]-08-05 18:13:00 Test Item Value Reference Range Interpretation Comments PTT (test code = PTT) 35.0 s 22.9-35.8 [place] 155092-08-05 18:13:00 Test Item Value Reference Range Interpretation Comments Plt Morph (test code = Normal (01/02/22 1:13 PM) Plt Morph) [place] 155092-08-05 18:13:00 Test Item Value Reference Range Interpretation Comments Segs (test code = Segs) 76.4 45.0-75.0 [place] 155092-08-05 18:13:00 Test Item Value Reference Range Interpretation Comments Lymphocytes (test code = Lymphocytes) 14.6 20.0-40.0 [place] 155092-08-05 18:13:00 Test Item Value Reference Range Interpretation Comments Monocytes (test code = Monocytes) 7.5 2.0-12.0 [place] 155092-08-05 18:13:00 Test Item Value Reference Range Interpretation Comments Eosinophils (test code = 0.6 See_Comment [A utomated message] The Eosinophils) system which ge nerated this result tra nsmitted reference range : <=4.0. The reference r samantha was not used to int erpret this result as normal/abnormal . [place] 155092-08-05 18:13:00 Test Item Value Reference Range Interpretation Comments Basophils (test code = 0.9 See_Comment [Aut omated message] The Basophils) system which ge nerated this result tra nsmitted reference range : <=1.0. The reference r samantha was not used to int erpret this result as normal/abnormal . [place] 155092-08-05 18:13:00 Test Item Value Reference Range Interpretation Comments Neutrophils # (test code = Neutrophils 3.7 1.5-8.1 #) [place] 155092-08-05 18:13:00 Test Item Value Reference Range Interpretation Comments Lymphocytes # (test code = Lymphocytes 0.7 1.0-5.5 #) [id number] 18:13:00 Test Item Value Reference Range Interpretation Comments Monocytes # (test code 0.4 See_Comment [Aut omated message] The = Monocytes #) system which generated this result tra nsmitted reference range : <=0.8. The reference r samantha was not used to int erpret this result as normal/abnormal . [facility] CampusFvcbwfiSSZWJGTZGL9522-24-30 18:13:00 Test Item Value Reference Range Interpretation Comments Anisocyte (test code = 2+ *ABN*(01/02/22 1:13 Anisocyte) PM) [place] 155092-08-05 18:13:00 Test Item Value Reference Range Interpretation Comments Macrocyte (test code = 2+ *ABN*(01/02/22 1:13 Macrocyte) PM) [facility] CenterCARDIAC [id number] 18:13:00 Test Item Value Reference Range Interpretation Comments HS Troponin I (test code = HS Troponin 156 I) [facility]2022-08-05 18:13:00 Test Item Value Reference Range Interpretation Comments Glucose Lvl (test code = Glucose Lvl) 237 70-99 [facility]2022-08-05 18:13:00 Test Item Value Reference Range Interpretation Comments BUN (test code = BUN) 46 7-22 [facility]2022-08-05 18:13:00 Test Item Value Reference Range Interpretation Comments Creatinine Lvl (test code = Creatinine 5.92 0.50-1.40 Lvl) [facility]2022-08-05 18:13:00 Test Item Value Reference Range Interpretation Comments Sodium Lvl (test code = Sodium Lvl) 134 135-145 [facility]2022-08-05 18:13:00 Test Item Value Reference Range Interpretation Comments Potassium Lvl (test code = Potassium 4.4 3.5-5.1 Lvl) [facility]2022-08-05 18:13:00 Test Item Value Reference Range Interpretation Comments Chloride Lvl (test code = Chloride Lvl) 98 95-109 [facility]2022-08-05 18:13:00 Test Item Value Reference Range Interpretation Comments CO2 (test code = CO2) 29 24-32 [facility]Dispatch [id number] 18:13:00 Test Item Value Reference Range Interpretation Comments Calcium Lvl (test code = Calcium Lvl) 9.2 8.5-10.5 [facility] CenterTarsa TherapeuticsHEATHER VILLE [id number] 18:13:00 Test Item Value Reference Range Interpretation Comments Total Protein (test code = Total 6.6 6.4-8.4 Protein) [facility] CenterYospace Technologies [id number] 18:13:00 Test Item Value Reference Range Interpretation Comments Albumin Lvl (test code = Albumin Lvl) 3.1 3.5-5.0 [facility] CenterDispatch [id number] 18:13:00 Test Item Value Reference Range Interpretation Comments ALT (test code = ALT) 36 See_Comment [Auto mated message] The system which ge nerated this result transmit swathi reference range : <=65. The reference range was not used to interpr et this result as deny l/abnormal. [facility] CenterDispatch [id number] 18:13:00 Test Item Value Reference Range Interpretation Comments AST (test code = AST) 28 See_Comment [Auto mated message] The system which ge nerated this result transmit swathi reference range : <=37. The reference range was not used to interpr et this result as deny l/abnormal. [facility] CenterDispatch [id number] 18:13:00 Test Item Value Reference Range Interpretation Comments Alk Phos (test code = Alk Phos) 231 39-136 [facility] CenterDispatch [id number] 18:13:00 Test Item Value Reference Range Interpretation Comments Bili Total (test code = Bili Total) 1.0 0.2-1.3 [facility] CenterDispatch [id number] 18:13:00 Test Item Value Reference Range Interpretation Comments AGAP (test code = AGAP) 11.4 10.0-20.0 [facility] [employer] [id number] 18:13:00 Test Item Value Reference Range Interpretation Comments B/C Ratio (test code = B/C Ratio) 8 1 6-25 [facility] CenterDispatch [id number] 18:13:00 Test Item Value Reference Range Interpretation Comments Globulin (test code = Globulin) 3.5 2.7-4.2 [facility] CenterDispatch [id number] 18:13:00 Test Item Value Reference Range Interpretation Comments A/G Ratio (test code = A/G Ratio) 0.9 1 0.7-1.6 [facility]2022-08-05 18:13:00 Test Item Value Reference Range Interpretation Comments eGFR (test code = eGFR) 9 [place] 155092-08-05 18:13:00 Test Item Value Reference Range Interpretation Comments WBC (test code = WBC) 4.8 3.7-10.4 [place] 155092-08-05 18:13:00 Test Item Value Reference Range Interpretation Comments RBC (test code = RBC) 1.93 4.70-6.10 [place] 155092-08-05 18:13:00 Test Item Value Reference Range Interpretation Comments Hgb (test code = Hgb) 7.2 14.0-18.0 [place] [address]-08-05 18:13:00 Test Item Value Reference Range Interpretation Comments Hct (test code = Hct) 21.2 42.0-54.0 [place] [address]-08-05 18:13:00 Test Item Value Reference Range Interpretation Comments MCV (test code = MCV) 110.1 80.0-94.0 [place] [address]-08-05 18:13:00 Test Item Value Reference Range Interpretation Comments MCH (test code = MCH) 37.1 pg 27.0-31.0 [place] 155092-08-05 18:13:00 Test Item Value Reference Range Interpretation Comments MCHC (test code = MCHC) 33.7 32.0-36.0 [facility] CampusXxnjytjZEPTEJZBRF1505-51-07 18:13:00 Test Item Value Reference Range Interpretation Comments RDW (test code = RDW) 25.8 11.5-14.5 [place] [address]-08-05 18:13:00 Test Item Value Reference Range Interpretation Comments Platelet (test code = Platelet) 216 133-450 [facility] [id number] 18:13:00 Test Item Value Reference Range Interpretation Comments MPV (test code = MPV) 8.2 7.4-10.4 [place] 155092-08-05 18:13:00 Test Item Value Reference Range Interpretation Comments PT (test code = PT) 16.9 s 12.0-14.7 [place] [address]-08-05 18:13:00 Test Item Value Reference Range Interpretation Comments INR (test code = INR) 1.39 1 0.85-1.17 [place] 155092-08-05 18:13:00 Test Item Value Reference Range Interpretation Comments PTT (test code = PTT) 35.0 s 22.9-35.8 [place] [address]-08-05 18:13:00 Test Item Value Reference Range Interpretation Comments Plt Morph (test code = Normal (01/02/22 1:13 PM) Plt Morph) [place] [address]-08-05 18:13:00 Test Item Value Reference Range Interpretation Comments Segs (test code = Segs) 76.4 45.0-75.0 [place] [address]-08-05 18:13:00 Test Item Value Reference Range Interpretation Comments Lymphocytes (test code = Lymphocytes) 14.6 20.0-40.0 [place] [address]-08-05 18:13:00 Test Item Value Reference Range Interpretation Comments Monocytes (test code = Monocytes) 7.5 2.0-12.0 [place] [address]-08-05 18:13:00 Test Item Value Reference Range Interpretation Comments Eosinophils (test code = 0.6 See_Comment [A utomated message] The Eosinophils) system which ge nerated this result tra nsmitted reference range : <=4.0. The reference r samantha was not used to int erpret this result as normal/abnormal . [place] 155092-08-05 18:13:00 Test Item Value Reference Range Interpretation Comments Basophils (test code = 0.9 See_Comment [Aut omated message] The Basophils) system which ge nerated this result tra nsmitted reference range : <=1.0. The reference r samantha was not used to int erpret this result as normal/abnormal . [place] [address]-08-05 18:13:00 Test Item Value Reference Range Interpretation Comments Neutrophils # (test code = Neutrophils 3.7 1.5-8.1 #) [place] [address]-08-05 18:13:00 Test Item Value Reference Range Interpretation Comments Lymphocytes # (test code = Lymphocytes 0.7 1.0-5.5 #) [id number] 18:13:00 Test Item Value Reference Range Interpretation Comments Monocytes # (test code 0.4 See_Comment [Aut omated message] The = Monocytes #) system which generated this result tra nsmitted reference range : <=0.8. The reference r samantha was not used to int erpret this result as normal/abnormal . [facility] [id number] 18:13:00 Test Item Value Reference Range Interpretation Comments Anisocyte (test code = 2+ *ABN*(01/02/22 1:13 Anisocyte) PM) [id number] 18:13:00 Test Item Value Reference Range Interpretation Comments Macrocyte (test code = 2+ *ABN*(01/02/22 1:13 Macrocyte) PM) [facility] [id number] 18:13:00 Test Item Value Reference Range Interpretation Comments HS Troponin I (test code = HS Troponin 156 I) [facility]2022-08-05 18:13:00 Test Item Value Reference Range Interpretation Comments Glucose Lvl (test code = Glucose Lvl) 237 70-99 [facility]2022-08-05 18:13:00 Test Item Value Reference Range Interpretation Comments BUN (test code = BUN) 46 7-22 [facility]2022-08-05 18:13:00 Test Item Value Reference Range Interpretation Comments Creatinine Lvl (test code = Creatinine 5.92 0.50-1.40 Lvl) [facility] [id number] 18:13:00 Test Item Value Reference Range Interpretation Comments Sodium Lvl (test code = Sodium Lvl) 134 135-145 [facility]2022-08-05 18:13:00 Test Item Value Reference Range Interpretation Comments Potassium Lvl (test code = Potassium 4.4 3.5-5.1 Lvl) [facility]2022-08-05 18:13:00 Test Item Value Reference Range Interpretation Comments Chloride Lvl (test code = Chloride Lvl) 98 95-109 [facility]2022-08-05 18:13:00 Test Item Value Reference Range Interpretation Comments CO2 (test code = CO2) 29 24-32 [facility] [id number] 18:13:00 Test Item Value Reference Range Interpretation Comments Calcium Lvl (test code = Calcium Lvl) 9.2 8.5-10.5 [facility]Dispatch [id number] 18:13:00 Test Item Value Reference Range Interpretation Comments Total Protein (test code = Total 6.6 6.4-8.4 Protein) [facility] [id number] 18:13:00 Test Item Value Reference Range Interpretation Comments Albumin Lvl (test code = Albumin Lvl) 3.1 3.5-5.0 [facility] [id number] 18:13:00 Test Item Value Reference Range Interpretation Comments ALT (test code = ALT) 36 See_Comment [Auto mated message] The system which ge nerated this result transmit swathi reference range : <=65. The reference range was not used to interpr et this result as deny l/abnormal. [facility] [employer] [id number] 18:13:00 Test Item Value Reference Range Interpretation Comments AST (test code = AST) 28 See_Comment [Auto mated message] The system which ge nerated this result transmit swathi reference range : <=37. The reference range was not used to interpr et this result as deny l/abnormal. [facility] [employer] [id number] 18:13:00 Test Item Value Reference Range Interpretation Comments Alk Phos (test code = Alk Phos) 231 39-136 [facility] [employer] [id number] 18:13:00 Test Item Value Reference Range Interpretation Comments Bili Total (test code = Bili Total) 1.0 0.2-1.3 [facility] [employer] [id number] 18:13:00 Test Item Value Reference Range Interpretation Comments AGAP (test code = AGAP) 11.4 10.0-20.0 [facility] [employer] [id number] 18:13:00 Test Item Value Reference Range Interpretation Comments B/C Ratio (test code = B/C Ratio) 8 1 6-25 [facility] [employer] [id number] 18:13:00 Test Item Value Reference Range Interpretation Comments Globulin (test code = Globulin) 3.5 2.7-4.2 [facility] [employer] [id number] 18:13:00 Test Item Value Reference Range Interpretation Comments A/G Ratio (test code = A/G Ratio) 0.9 1 0.7-1.6 [facility]2022-08-05 18:13:00 Test Item Value Reference Range Interpretation Comments eGFR (test code = eGFR) 9 [facility] CampusUpbxoamFQJHQVLOTT3278-14-56 18:13:00 Test Item Value Reference Range Interpretation Comments WBC (test code = WBC) 4.8 3.7-10.4 [facility] [id number] 18:13:00 Test Item Value Reference Range Interpretation Comments RBC (test code = RBC) 1.93 4.70-6.10 [facility] [id number] 18:13:00 Test Item Value Reference Range Interpretation Comments Hgb (test code = Hgb) 7.2 14.0-18.0 [facility] Camp[id number] 18:13:00 Test Item Value Reference Range Interpretation Comments Hct (test code = Hct) 21.2 42.0-54.0 [place] 155092-08-05 18:13:00 Test Item Value Reference Range Interpretation Comments MCV (test code = MCV) 110.1 80.0-94.0 [facility] C[id number] 18:13:00 Test Item Value Reference Range Interpretation Comments MCH (test code = MCH) 37.1 pg 27.0-31.0 [facility] C[id number] 18:13:00 Test Item Value Reference Range Interpretation Comments MCHC (test code = MCHC) 33.7 32.0-36.0 [facility] C[id number] 18:13:00 Test Item Value Reference Range Interpretation Comments RDW (test code = RDW) 25.8 11.5-14.5 [place] 155092-08-05 18:13:00 Test Item Value Reference Range Interpretation Comments Platelet (test code = Platelet) 216 133-450 [facility] [id number] 18:13:00 Test Item Value Reference Range Interpretation Comments MPV (test code = MPV) 8.2 7.4-10.4 [facility] CampusTevvrjsMAPVAOQPUJ2088-80-55 18:13:00 Test Item Value Reference Range Interpretation Comments PT (test code = PT) 16.9 s 12.0-14.7 [place] [address]-08-05 18:13:00 Test Item Value Reference Range Interpretation Comments INR (test code = INR) 1.39 1 0.85-1.17 [place] 155092-08-05 18:13:00 Test Item Value Reference Range Interpretation Comments PTT (test code = PTT) 35.0 s 22.9-35.8 [place] [address]-08-05 18:13:00 Test Item Value Reference Range Interpretation Comments Plt Morph (test code = Normal (01/02/22 1:13 PM) Plt Morph) [place] 155092-08-05 18:13:00 Test Item Value Reference Range Interpretation Comments Segs (test code = Segs) 76.4 45.0-75.0 [place] 155092-08-05 18:13:00 Test Item Value Reference Range Interpretation Comments Lymphocytes (test code = Lymphocytes) 14.6 20.0-40.0 [place] 155092-08-05 18:13:00 Test Item Value Reference Range Interpretation Comments Monocytes (test code = Monocytes) 7.5 2.0-12.0 [place] 155092-08-05 18:13:00 Test Item Value Reference Range Interpretation Comments Eosinophils (test code = 0.6 See_Comment [A utomated message] The Eosinophils) system which ge nerated this result tra nsmitted reference range : <=4.0. The reference r samantha was not used to int erpret this result as normal/abnormal . [facility] C[id number] 18:13:00 Test Item Value Reference Range Interpretation Comments Basophils (test code = 0.9 See_Comment [Aut omated message] The Basophils) system which ge nerated this result tra nsmitted reference range : <=1.0. The reference r samantha was not used to int erpret this result as normal/abnormal . [place] 155092-08-05 18:13:00 Test Item Value Reference Range Interpretation Comments Neutrophils # (test code = Neutrophils 3.7 1.5-8.1 #) [facility] [id number] 18:13:00 Test Item Value Reference Range Interpretation Comments Lymphocytes # (test code = Lymphocytes 0.7 1.0-5.5 #) [place] 155092-08-05 18:13:00 Test Item Value Reference Range Interpretation Comments Monocytes # (test code 0.4 See_Comment [Aut omated message] The = Monocytes #) system which generated this result tra nsmitted reference range : <=0.8. The reference r samantha was not used to int erpret this result as normal/abnormal . [facility] [id number] 18:13:00 Test Item Value Reference Range Interpretation Comments Anisocyte (test code = 2+ *ABN*(01/02/22 1:13 Anisocyte) PM) [facility] Camp[id number] 18:13:00 Test Item Value Reference Range Interpretation Comments Macrocyte (test code = 2+ *ABN*(01/02/22 1:13 Macrocyte) PM) [facility]2022-08-05 18:13:00 Test Item Value Reference Range Interpretation Comments HS Troponin I (test code = HS Troponin 156 I) [facility] [id number] 18:13:00 Test Item Value Reference Range Interpretation Comments Glucose Lvl (test code = Glucose Lvl) 237 70-99 [facility]2022-08-05 18:13:00 Test Item Value Reference Range Interpretation Comments BUN (test code = BUN) 46 7-22 [facility]2022-08-05 18:13:00 Test Item Value Reference Range Interpretation Comments Creatinine Lvl (test code = Creatinine 5.92 0.50-1.40 Lvl) [facility]2022-08-05 18:13:00 Test Item Value Reference Range Interpretation Comments Sodium Lvl (test code = Sodium Lvl) 134 135-145 [facility] [id number] 18:13:00 Test Item Value Reference Range Interpretation Comments Potassium Lvl (test code = Potassium 4.4 3.5-5.1 Lvl) [facility] [id number] 18:13:00 Test Item Value Reference Range Interpretation Comments Chloride Lvl (test code = Chloride Lvl) 98 95-109 [facility]2022-08-05 18:13:00 Test Item Value Reference Range Interpretation Comments CO2 (test code = CO2) 29 24-32 [facility] [id number] 18:13:00 Test Item Value Reference Range Interpretation Comments Calcium Lvl (test code = Calcium Lvl) 9.2 8.5-10.5 [facility] CenterTarsa Therapeutics[address]08-05 18:13:00 Test Item Value Reference Range Interpretation Comments Total Protein (test code = Total 6.6 6.4-8.4 Protein) [address]08-05 18:13:00 Test Item Value Reference Range Interpretation Comments Albumin Lvl (test code = Albumin Lvl) 3.1 3.5-5.0 [facility] [id number] 18:13:00 Test Item Value Reference Range Interpretation Comments ALT (test code = ALT) 36 See_Comment [Auto mated message] The system which ge nerated this result transmit swathi reference range : <=65. The reference range was not used to interpr et this result as deny l/abnormal. [facility] [id number] 18:13:00 Test Item Value Reference Range Interpretation Comments AST (test code = AST) 28 See_Comment [Auto mated message] The system which ge nerated this result transmit swathi reference range : <=37. The reference range was not used to interpr et this result as deny l/abnormal. [facility] [id number] 18:13:00 Test Item Value Reference Range Interpretation Comments Alk Phos (test code = Alk Phos) 231 39-136 [facility] [id number] 18:13:00 Test Item Value Reference Range Interpretation Comments Bili Total (test code = Bili Total) 1.0 0.2-1.3 [facility] [id number] 18:13:00 Test Item Value Reference Range Interpretation Comments AGAP (test code = AGAP) 11.4 10.0-20.0 [facility] CenterDispatch [id number] 18:13:00 Test Item Value Reference Range Interpretation Comments B/C Ratio (test code = B/C Ratio) 8 1 6-25 [facility] [id number] 18:13:00 Test Item Value Reference Range Interpretation Comments Globulin (test code = Globulin) 3.5 2.7-4.2 [facility] [id number] 18:13:00 Test Item Value Reference Range Interpretation Comments A/G Ratio (test code = A/G Ratio) 0.9 1 0.7-1.6 [facility]2022-08-05 18:13:00 Test Item Value Reference Range Interpretation Comments eGFR (test code = eGFR) 9 [place] 155092-08-05 18:13:00 Test Item Value Reference Range Interpretation Comments WBC (test code = WBC) 4.8 3.7-10.4 [place] 155092-08-05 18:13:00 Test Item Value Reference Range Interpretation Comments RBC (test code = RBC) 1.93 4.70-6.10 [place] [address]-08-05 18:13:00 Test Item Value Reference Range Interpretation Comments Hgb (test code = Hgb) 7.2 14.0-18.0 [place] [address]-08-05 18:13:00 Test Item Value Reference Range Interpretation Comments Hct (test code = Hct) 21.2 42.0-54.0 [place] 155092-08-05 18:13:00 Test Item Value Reference Range Interpretation Comments MCV (test code = MCV) 110.1 80.0-94.0 [place] 155092-08-05 18:13:00 Test Item Value Reference Range Interpretation Comments MCH (test code = MCH) 37.1 pg 27.0-31.0 [place] 155092-08-05 18:13:00 Test Item Value Reference Range Interpretation Comments MCHC (test code = MCHC) 33.7 32.0-36.0 [place] 155092-08-05 18:13:00 Test Item Value Reference Range Interpretation Comments RDW (test code = RDW) 25.8 11.5-14.5 [place] [address]-08-05 18:13:00 Test Item Value Reference Range Interpretation Comments Platelet (test code = Platelet) 216 133-450 [place] 155092-08-05 18:13:00 Test Item Value Reference Range Interpretation Comments MPV (test code = MPV) 8.2 7.4-10.4 [place] [address]-08-05 18:13:00 Test Item Value Reference Range Interpretation Comments PT (test code = PT) 16.9 s 12.0-14.7 [place] 155092-08-05 18:13:00 Test Item Value Reference Range Interpretation Comments INR (test code = INR) 1.39 1 0.85-1.17 [place] [address]-08-05 18:13:00 Test Item Value Reference Range Interpretation Comments PTT (test code = PTT) 35.0 s 22.9-35.8 [place] [address]-08-05 18:13:00 Test Item Value Reference Range Interpretation Comments Plt Morph (test code = Normal (01/02/22 1:13 PM) Plt Morph) [place] [address]-08-05 18:13:00 Test Item Value Reference Range Interpretation Comments Segs (test code = Segs) 76.4 45.0-75.0 [place] [address]-08-05 18:13:00 Test Item Value Reference Range Interpretation Comments Lymphocytes (test code = Lymphocytes) 14.6 20.0-40.0 [place] [address]-08-05 18:13:00 Test Item Value Reference Range Interpretation Comments Monocytes (test code = Monocytes) 7.5 2.0-12.0 [place] [address]-08-05 18:13:00 Test Item Value Reference Range Interpretation Comments Eosinophils (test code = 0.6 See_Comment [A utomated message] The Eosinophils) system which ge nerated this result tra nsmitted reference range : <=4.0. The reference r samantha was not used to int erpret this result as normal/abnormal . [place] [address]-08-05 18:13:00 Test Item Value Reference Range Interpretation Comments Basophils (test code = 0.9 See_Comment [Aut omated message] The Basophils) system which ge nerated this result tra nsmitted reference range : <=1.0. The reference r samantha was not used to int erpret this result as normal/abnormal . [place] [address]-08-05 18:13:00 Test Item Value Reference Range Interpretation Comments Neutrophils # (test code = Neutrophils 3.7 1.5-8.1 #) [place] 155092-08-05 18:13:00 Test Item Value Reference Range Interpretation Comments Lymphocytes # (test code = Lymphocytes 0.7 1.0-5.5 #) [place] [address]-08-05 18:13:00 Test Item Value Reference Range Interpretation Comments Monocytes # (test code 0.4 See_Comment [Aut omated message] The = Monocytes #) system which generated this result tra nsmitted reference range : <=0.8. The reference r samantha was not used to int erpret this result as normal/abnormal . [facility] CampusPpzwjeoMOTRMGWYUU1631-27-04 18:13:00 Test Item Value Reference Range Interpretation Comments Anisocyte (test code = 2+ *ABN*(01/02/22 1:13 Anisocyte) PM) [facility] [id number] 18:13:00 Test Item Value Reference Range Interpretation Comments Macrocyte (test code = 2+ *ABN*(01/02/22 1:13 Macrocyte) PM) [facility] CenterCARD[facility] [id number] 18:13:00 Test Item Value Reference Range Interpretation Comments HS Troponin I (test code = HS Troponin 156 I) [facility]2022-08-05 18:13:00 Test Item Value Reference Range Interpretation Comments Glucose Lvl (test code = Glucose Lvl) 237 70-99 [facility]2022-08-05 18:13:00 Test Item Value Reference Range Interpretation Comments BUN (test code = BUN) 46 7-22 [facility]2022-08-05 18:13:00 Test Item Value Reference Range Interpretation Comments Creatinine Lvl (test code = Creatinine 5.92 0.50-1.40 Lvl) [facility]2022-08-05 18:13:00 Test Item Value Reference Range Interpretation Comments Sodium Lvl (test code = Sodium Lvl) 134 135-145 [facility]2022-08-05 18:13:00 Test Item Value Reference Range Interpretation Comments Potassium Lvl (test code = Potassium 4.4 3.5-5.1 Lvl) [facility]2022-08-05 18:13:00 Test Item Value Reference Range Interpretation Comments Chloride Lvl (test code = Chloride Lvl) 98 95-109 [facility]2022-08-05 18:13:00 Test Item Value Reference Range Interpretation Comments CO2 (test code = CO2) 29 24-32 [facility]2022-08-05 18:13:00 Test Item Value Reference Range Interpretation Comments Calcium Lvl (test code = Calcium Lvl) 9.2 8.5-10.5 [address]08-05 18:13:00 Test Item Value Reference Range Interpretation Comments Total Protein (test code = Total 6.6 6.4-8.4 Protein) [address]08-05 18:13:00 Test Item Value Reference Range Interpretation Comments Albumin Lvl (test code = Albumin Lvl) 3.1 3.5-5.0 [address]08-05 18:13:00 Test Item Value Reference Range Interpretation Comments ALT (test code = ALT) 36 See_Comment [Auto mated message] The system which ge nerated this result transmit swathi reference range : <=65. The reference range was not used to interpr et this result as deny l/abnormal. [address]08-05 18:13:00 Test Item Value Reference Range Interpretation Comments AST (test code = AST) 28 See_Comment [Auto mated message] The system which ge nerated this result transmit swathi reference range : <=37. The reference range was not used to interpr et this result as deny l/abnormal. [address]08-05 18:13:00 Test Item Value Reference Range Interpretation Comments Alk Phos (test code = Alk Phos) 231 39-136 [address]08-05 18:13:00 Test Item Value Reference Range Interpretation Comments Bili Total (test code = Bili Total) 1.0 0.2-1.3 [address]08-05 18:13:00 Test Item Value Reference Range Interpretation Comments AGAP (test code = AGAP) 11.4 10.0-20.0 [facility] [id number] 18:13:00 Test Item Value Reference Range Interpretation Comments B/C Ratio (test code = B/C Ratio) 8 1 6-25 [facility] [id number] 18:13:00 Test Item Value Reference Range Interpretation Comments Globulin (test code = Globulin) 3.5 2.7-4.2 [address]08-05 18:13:00 Test Item Value Reference Range Interpretation Comments A/G Ratio (test code = A/G Ratio) 0.9 1 0.7-1.6 [facility]2022-08-05 18:13:00 Test Item Value Reference Range Interpretation Comments eGFR (test code = eGFR) 9 [place] [address]-08-05 18:13:00 Test Item Value Reference Range Interpretation Comments WBC (test code = WBC) 4.8 3.7-10.4 [place] [address]-08-05 18:13:00 Test Item Value Reference Range Interpretation Comments RBC (test code = RBC) 1.93 4.70-6.10 [place] [address]-08-05 18:13:00 Test Item Value Reference Range Interpretation Comments Hgb (test code = Hgb) 7.2 14.0-18.0 [place] [address]-08-05 18:13:00 Test Item Value Reference Range Interpretation Comments Hct (test code = Hct) 21.2 42.0-54.0 [place] [address]-08-05 18:13:00 Test Item Value Reference Range Interpretation Comments MCV (test code = MCV) 110.1 80.0-94.0 [place] [address]-08-05 18:13:00 Test Item Value Reference Range Interpretation Comments MCH (test code = MCH) 37.1 pg 27.0-31.0 [place] [address]-08-05 18:13:00 Test Item Value Reference Range Interpretation Comments MCHC (test code = MCHC) 33.7 32.0-36.0 [place] [address]-08-05 18:13:00 Test Item Value Reference Range Interpretation Comments RDW (test code = RDW) 25.8 11.5-14.5 [place] [address]-08-05 18:13:00 Test Item Value Reference Range Interpretation Comments Platelet (test code = Platelet) 216 133-450 [place] [address]-08-05 18:13:00 Test Item Value Reference Range Interpretation Comments MPV (test code = MPV) 8.2 7.4-10.4 [place] [address]-08-05 18:13:00 Test Item Value Reference Range Interpretation Comments PT (test code = PT) 16.9 s 12.0-14.7 [place] [address]-08-05 18:13:00 Test Item Value Reference Range Interpretation Comments INR (test code = INR) 1.39 1 0.85-1.17 [place] [address]-08-05 18:13:00 Test Item Value Reference Range Interpretation Comments PTT (test code = PTT) 35.0 s 22.9-35.8 [place] [address]-08-05 18:13:00 Test Item Value Reference Range Interpretation Comments Plt Morph (test code = Normal (01/02/22 1:13 PM) Plt Morph) [place] [address]-08-05 18:13:00 Test Item Value Reference Range Interpretation Comments Segs (test code = Segs) 76.4 45.0-75.0 [place] [address]-08-05 18:13:00 Test Item Value Reference Range Interpretation Comments Lymphocytes (test code = Lymphocytes) 14.6 20.0-40.0 [place] [address]-08-05 18:13:00 Test Item Value Reference Range Interpretation Comments Monocytes (test code = Monocytes) 7.5 2.0-12.0 [place] [address]-08-05 18:13:00 Test Item Value Reference Range Interpretation Comments Eosinophils (test code = 0.6 See_Comment [A utomated message] The Eosinophils) system which ge nerated this result tra nsmitted reference range : <=4.0. The reference r samantha was not used to int erpret this result as normal/abnormal . [place] [address]-08-05 18:13:00 Test Item Value Reference Range Interpretation Comments Basophils (test code = 0.9 See_Comment [Aut omated message] The Basophils) system which ge nerated this result tra nsmitted reference range : <=1.0. The reference r samantha was not used to int erpret this result as normal/abnormal . [place] [address]-08-05 18:13:00 Test Item Value Reference Range Interpretation Comments Neutrophils # (test code = Neutrophils 3.7 1.5-8.1 #) [place] [address]-08-05 18:13:00 Test Item Value Reference Range Interpretation Comments Lymphocytes # (test code = Lymphocytes 0.7 1.0-5.5 #) [place] [address]-08-05 18:13:00 Test Item Value Reference Range Interpretation Comments Monocytes # (test code 0.4 See_Comment [Aut omated message] The = Monocytes #) system which generated this result tra nsmitted reference range : <=0.8. The reference r samantha was not used to int erpret this result as normal/abnormal . [id number] 18:13:00 Test Item Value Reference Range Interpretation Comments Anisocyte (test code = 2+ *ABN*(01/02/22 1:13 Anisocyte) PM) [facility] HospitalUfwmztbNJVYKKTRPU0480-77-50 18:13:00 Test Item Value Reference Range Interpretation Comments Macrocyte (test code = 2+ *ABN*(01/02/22 1:13 Macrocyte) PM) [facility] [id number] 18:13:00 Test Item Value Reference Range Interpretation Comments HS Troponin I (test code = HS Troponin 156 I) [facility]2022-08-05 18:13:00 Test Item Value Reference Range Interpretation Comments Glucose Lvl (test code = Glucose Lvl) 237 70-99 [facility]2022-08-05 18:13:00 Test Item Value Reference Range Interpretation Comments BUN (test code = BUN) 46 7-22 [facility]2022-08-05 18:13:00 Test Item Value Reference Range Interpretation Comments Creatinine Lvl (test code = Creatinine 5.92 0.50-1.40 Lvl) [facility]2022-08-05 18:13:00 Test Item Value Reference Range Interpretation Comments Sodium Lvl (test code = Sodium Lvl) 134 135-145 [facility]2022-08-05 18:13:00 Test Item Value Reference Range Interpretation Comments Potassium Lvl (test code = Potassium 4.4 3.5-5.1 Lvl) [facility]2022-08-05 18:13:00 Test Item Value Reference Range Interpretation Comments Chloride Lvl (test code = Chloride Lvl) 98 95-109 [facility]2022-08-05 18:13:00 Test Item Value Reference Range Interpretation Comments CO2 (test code = CO2) 29 24-32 [facility]2022-08-05 18:13:00 Test Item Value Reference Range Interpretation Comments Calcium Lvl (test code = Calcium Lvl) 9.2 8.5-10.5 [facility]2022-08-05 18:13:00 Test Item Value Reference Range Interpretation Comments Total Protein (test code = Total 6.6 6.4-8.4 Protein) [facility] [id number] 18:13:00 Test Item Value Reference Range Interpretation Comments Albumin Lvl (test code = Albumin Lvl) 3.1 3.5-5.0 [facility] [id number] 18:13:00 Test Item Value Reference Range Interpretation Comments ALT (test code = ALT) 36 See_Comment [Auto mated message] The system which ge nerated this result transmit swathi reference range : <=65. The reference range was not used to interpr et this result as deny l/abnormal. [facility] [employer] [id number] 18:13:00 Test Item Value Reference Range Interpretation Comments AST (test code = AST) 28 See_Comment [Auto mated message] The system which ge nerated this result transmit swathi reference range : <=37. The reference range was not used to interpr et this result as deny l/abnormal. [facility] [employer] [id number] 18:13:00 Test Item Value Reference Range Interpretation Comments Alk Phos (test code = Alk Phos) 231 39-136 [facility] [employer] [id number] 18:13:00 Test Item Value Reference Range Interpretation Comments Bili Total (test code = Bili Total) 1.0 0.2-1.3 [facility] [id number] 18:13:00 Test Item Value Reference Range Interpretation Comments AGAP (test code = AGAP) 11.4 10.0-20.0 [facility] [employer] [id number] 18:13:00 Test Item Value Reference Range Interpretation Comments B/C Ratio (test code = B/C Ratio) 8 1 6-25 [facility] [id number] 18:13:00 Test Item Value Reference Range Interpretation Comments Globulin (test code = Globulin) 3.5 2.7-4.2 [facility] [id number] 18:13:00 Test Item Value Reference Range Interpretation Comments A/G Ratio (test code = A/G Ratio) 0.9 1 0.7-1.6 [facility] [id number] 18:13:00 Test Item Value Reference Range Interpretation Comments eGFR (test code = eGFR) 9 [facility]NwojsozPYBRKQUWKX8762-60-34 18:13:00 Test Item Value Reference Range Interpretation Comments WBC (test code = WBC) 4.8 3.7-10.4 [facility] CampusLtmfndgMBZCEZIHOG3762-81-66 18:13:00 Test Item Value Reference Range Interpretation Comments RBC (test code = RBC) 1.93 4.70-6.10 [facility] CampusKxmabbiJXDBIVNFXT8226-48-38 18:13:00 Test Item Value Reference Range Interpretation Comments Hgb (test code = Hgb) 7.2 14.0-18.0 [facility] CampusNwzukzqKMMBINBKWU3600-01-77 18:13:00 Test Item Value Reference Range Interpretation Comments Hct (test code = Hct) 21.2 42.0-54.0 [facility] CampusIisxgldVWRECBTEJL6844-72-91 18:13:00 Test Item Value Reference Range Interpretation Comments MCV (test code = MCV) 110.1 80.0-94.0 [facility] CampusZtdojreMWWWMXNPQU4033-79-91 18:13:00 Test Item Value Reference Range Interpretation Comments MCH (test code = MCH) 37.1 pg 27.0-31.0 [facility] CampusXynycucLSYPUTWAWZ7065-84-36 18:13:00 Test Item Value Reference Range Interpretation Comments MCHC (test code = MCHC) 33.7 32.0-36.0 [facility] CampusJjfptnlMYTVDMXVIG1220-25-49 18:13:00 Test Item Value Reference Range Interpretation Comments RDW (test code = RDW) 25.8 11.5-14.5 [facility] CampusIpjewomRGEFKALRAK1044-68-43 18:13:00 Test Item Value Reference Range Interpretation Comments Platelet (test code = Platelet) 216 133-450 [facility] CampusBthvtliHBUPMBZCRU2047-57-89 18:13:00 Test Item Value Reference Range Interpretation Comments MPV (test code = MPV) 8.2 7.4-10.4 [facility] CampusSfmmyubVAIJMFWEFA9308-63-13 18:13:00 Test Item Value Reference Range Interpretation Comments PT (test code = PT) 16.9 s 12.0-14.7 [facility] Camp[id number] 18:13:00 Test Item Value Reference Range Interpretation Comments INR (test code = INR) 1.39 1 0.85-1.17 [place] [address]-08-05 18:13:00 Test Item Value Reference Range Interpretation Comments PTT (test code = PTT) 35.0 s 22.9-35.8 [place] 155092-08-05 18:13:00 Test Item Value Reference Range Interpretation Comments Plt Morph (test code = Normal (01/02/22 1:13 PM) Plt Morph) [place] 155092-08-05 18:13:00 Test Item Value Reference Range Interpretation Comments Segs (test code = Segs) 76.4 45.0-75.0 [place] 155092-08-05 18:13:00 Test Item Value Reference Range Interpretation Comments Lymphocytes (test code = Lymphocytes) 14.6 20.0-40.0 [place] 155092-08-05 18:13:00 Test Item Value Reference Range Interpretation Comments Monocytes (test code = Monocytes) 7.5 2.0-12.0 [place] 155092-08-05 18:13:00 Test Item Value Reference Range Interpretation Comments Eosinophils (test code = 0.6 See_Comment [A utomated message] The Eosinophils) system which ge nerated this result tra nsmitted reference range : <=4.0. The reference r samantha was not used to int erpret this result as normal/abnormal . [place] [address]-08-05 18:13:00 Test Item Value Reference Range Interpretation Comments Basophils (test code = 0.9 See_Comment [Aut omated message] The Basophils) system which ge nerated this result tra nsmitted reference range : <=1.0. The reference r samantha was not used to int erpret this result as normal/abnormal . [facility] Camp[id number] 18:13:00 Test Item Value Reference Range Interpretation Comments Neutrophils # (test code = Neutrophils 3.7 1.5-8.1 #) [place] [address]-08-05 18:13:00 Test Item Value Reference Range Interpretation Comments Lymphocytes # (test code = Lymphocytes 0.7 1.0-5.5 #) [place] [address]-08-05 18:13:00 Test Item Value Reference Range Interpretation Comments Monocytes # (test code 0.4 See_Comment [Aut omated message] The = Monocytes #) system which generated this result tra nsmitted reference range : <=0.8. The reference r samantha was not used to int erpret this result as normal/abnormal . [facility] HospitalXewbsaiBFKFPQBNRP6894-75-49 18:13:00 Test Item Value Reference Range Interpretation Comments Anisocyte (test code = 2+ *ABN*(01/02/22 1:13 Anisocyte) PM) [facility] HospitalVefmjiiXWZBYPQBLR1416-44-92 18:13:00 Test Item Value Reference Range Interpretation Comments Macrocyte (test code = 2+ *ABN*(01/02/22 1:13 Macrocyte) PM) [facility] [id number] 18:13:00 Test Item Value Reference Range Interpretation Comments HS Troponin I (test code = HS Troponin 156 I) [facility] [id number] 18:13:00 Test Item Value Reference Range Interpretation Comments Glucose Lvl (test code = Glucose Lvl) 237 70-99 [facility]2022-08-05 18:13:00 Test Item Value Reference Range Interpretation Comments BUN (test code = BUN) 46 7-22 [facility]2022-08-05 18:13:00 Test Item Value Reference Range Interpretation Comments Creatinine Lvl (test code = Creatinine 5.92 0.50-1.40 Lvl) [facility]2022-08-05 18:13:00 Test Item Value Reference Range Interpretation Comments Sodium Lvl (test code = Sodium Lvl) 134 135-145 [facility]2022-08-05 18:13:00 Test Item Value Reference Range Interpretation Comments Potassium Lvl (test code = Potassium 4.4 3.5-5.1 Lvl) [facility]2022-08-05 18:13:00 Test Item Value Reference Range Interpretation Comments Chloride Lvl (test code = Chloride Lvl) 98 95-109 [facility] [id number] 18:13:00 Test Item Value Reference Range Interpretation Comments CO2 (test code = CO2) 29 24-32 [facility]2022-08-05 18:13:00 Test Item Value Reference Range Interpretation Comments Calcium Lvl (test code = Calcium Lvl) 9.2 8.5-10.5 [facility]2022-08-05 18:13:00 Test Item Value Reference Range Interpretation Comments Total Protein (test code = Total 6.6 6.4-8.4 Protein) [facility] [id number] 18:13:00 Test Item Value Reference Range Interpretation Comments Albumin Lvl (test code = Albumin Lvl) 3.1 3.5-5.0 [facility] [id number] 18:13:00 Test Item Value Reference Range Interpretation Comments ALT (test code = ALT) 36 See_Comment [Auto mated message] The system which ge nerated this result transmit swathi reference range : <=65. The reference range was not used to interpr et this result as deny l/abnormal. [facility] [id number] 18:13:00 Test Item Value Reference Range Interpretation Comments AST (test code = AST) 28 See_Comment [Auto mated message] The system which ge nerated this result transmit swathi reference range : <=37. The reference range was not used to interpr et this result as deny l/abnormal. [facility] [id number] 18:13:00 Test Item Value Reference Range Interpretation Comments Alk Phos (test code = Alk Phos) 231 39-136 [facility] [id number] 18:13:00 Test Item Value Reference Range Interpretation Comments Bili Total (test code = Bili Total) 1.0 0.2-1.3 [facility] [id number] 18:13:00 Test Item Value Reference Range Interpretation Comments AGAP (test code = AGAP) 11.4 10.0-20.0 [facility] [id number] 18:13:00 Test Item Value Reference Range Interpretation Comments B/C Ratio (test code = B/C Ratio) 8 1 6-25 [facility] [id number] 18:13:00 Test Item Value Reference Range Interpretation Comments Globulin (test code = Globulin) 3.5 2.7-4.2 [facility] [id number] 18:13:00 Test Item Value Reference Range Interpretation Comments A/G Ratio (test code = A/G Ratio) 0.9 1 0.7-1.6 [facility] [id number] 18:13:00 Test Item Value Reference Range Interpretation Comments eGFR (test code = eGFR) 9 [place] 155092-08-05 18:13:00 Test Item Value Reference Range Interpretation Comments WBC (test code = WBC) 4.8 3.7-10.4 [place] 155092-08-05 18:13:00 Test Item Value Reference Range Interpretation Comments RBC (test code = RBC) 1.93 4.70-6.10 [place] 155092-08-05 18:13:00 Test Item Value Reference Range Interpretation Comments Hgb (test code = Hgb) 7.2 14.0-18.0 [place] [address]-08-05 18:13:00 Test Item Value Reference Range Interpretation Comments Hct (test code = Hct) 21.2 42.0-54.0 [place] [address]-08-05 18:13:00 Test Item Value Reference Range Interpretation Comments MCV (test code = MCV) 110.1 80.0-94.0 [place] 155092-08-05 18:13:00 Test Item Value Reference Range Interpretation Comments MCH (test code = MCH) 37.1 pg 27.0-31.0 [place] 155092-08-05 18:13:00 Test Item Value Reference Range Interpretation Comments MCHC (test code = MCHC) 33.7 32.0-36.0 [place] 155092-08-05 18:13:00 Test Item Value Reference Range Interpretation Comments RDW (test code = RDW) 25.8 11.5-14.5 [id number] 18:13:00 Test Item Value Reference Range Interpretation Comments Platelet (test code = Platelet) 216 133-450 [facility] CampusKztmeuvMCVQRMYFAY9949-95-42 18:13:00 Test Item Value Reference Range Interpretation Comments MPV (test code = MPV) 8.2 7.4-10.4 [place] [address]-08-05 18:13:00 Test Item Value Reference Range Interpretation Comments PT (test code = PT) 16.9 s 12.0-14.7 [place] [address]-08-05 18:13:00 Test Item Value Reference Range Interpretation Comments INR (test code = INR) 1.39 1 0.85-1.17 [place] 155092-08-05 18:13:00 Test Item Value Reference Range Interpretation Comments PTT (test code = PTT) 35.0 s 22.9-35.8 [place] 155092-08-05 18:13:00 Test Item Value Reference Range Interpretation Comments Plt Morph (test code = Normal (01/02/22 1:13 PM) Plt Morph) [place] 155092-08-05 18:13:00 Test Item Value Reference Range Interpretation Comments Segs (test code = Segs) 76.4 45.0-75.0 [place] 155092-08-05 18:13:00 Test Item Value Reference Range Interpretation Comments Lymphocytes (test code = Lymphocytes) 14.6 20.0-40.0 [place] [address]-08-05 18:13:00 Test Item Value Reference Range Interpretation Comments Monocytes (test code = Monocytes) 7.5 2.0-12.0 [place] [address]-08-05 18:13:00 Test Item Value Reference Range Interpretation Comments Eosinophils (test code = 0.6 See_Comment [A utomated message] The Eosinophils) system which ge nerated this result tra nsmitted reference range : <=4.0. The reference r samantha was not used to int erpret this result as normal/abnormal . [place] [address]-08-05 18:13:00 Test Item Value Reference Range Interpretation Comments Basophils (test code = 0.9 See_Comment [Aut omated message] The Basophils) system which ge nerated this result tra nsmitted reference range : <=1.0. The reference r samantha was not used to int erpret this result as normal/abnormal . [place] 155092-08-05 18:13:00 Test Item Value Reference Range Interpretation Comments Neutrophils # (test code = Neutrophils 3.7 1.5-8.1 #) [place] [address]-08-05 18:13:00 Test Item Value Reference Range Interpretation Comments Lymphocytes # (test code = Lymphocytes 0.7 1.0-5.5 #) [place] [address]-08-05 18:13:00 Test Item Value Reference Range Interpretation Comments Monocytes # (test code 0.4 See_Comment [Aut omated message] The = Monocytes #) system which generated this result tra nsmitted reference range : <=0.8. The reference r samantha was not used to int erpret this result as normal/abnormal . [place] 155092-08-05 18:13:00 Test Item Value Reference Range Interpretation Comments Anisocyte (test code = 2+ *ABN*(01/02/22 1:13 Anisocyte) PM) [place] [address]-08-05 18:13:00 Test Item Value Reference Range Interpretation Comments Macrocyte (test code = 2+ *ABN*(01/02/22 1:13 Macrocyte) PM) [facility]2022-07-19 09:29:00 Test Item Value Reference Range Interpretation Comments Glucose Lvl (test code = Glucose Lvl) 199 70-99 [place] 506282-07-19 09:29:00 Test Item Value Reference Range Interpretation Comments BUN (test code = BUN) 28 7-22 [place] 506282-07-19 09:29:00 Test Item Value Reference Range Interpretation Comments Creatinine Lvl (test code = Creatinine 4.84 0.50-1.40 Lvl) [facility]2022-07-19 09:29:00 Test Item Value Reference Range Interpretation Comments Sodium Lvl (test code = Sodium Lvl) 134 135-145 [place] 506282-07-19 09:29:00 Test Item Value Reference Range Interpretation Comments Potassium Lvl (test code = Potassium 4.3 3.5-5.1 Lvl) [place] 506282-07-19 09:29:00 Test Item Value Reference Range Interpretation Comments Chloride Lvl (test code = Chloride Lvl) 100 95-109 [place] 506282-07-19 09:29:00 Test Item Value Reference Range Interpretation Comments CO2 (test code = CO2) 28 24-32 [place] 506282-07-19 09:29:00 Test Item Value Reference Range Interpretation Comments Calcium Lvl (test code = Calcium Lvl) 9.4 8.5-10.5 [place] 506282-07-19 09:29:00 Test Item Value Reference Range Interpretation Comments Total Protein (test code = Total 6.6 6.4-8.4 Protein) [place] 506282-07-19 09:29:00 Test Item Value Reference Range Interpretation Comments Albumin Lvl (test code = Albumin Lvl) 3.0 3.5-5.0 [facility] [id number] 09:29:00 Test Item Value Reference Range Interpretation Comments ALT (test code = ALT) 92 See_Comment [Auto mated message] The system which ge nerated this result transmit swathi reference range : <=65. The reference range was not used to interpr et this result as deny l/abnormal. [facility] [id number] 09:29:00 Test Item Value Reference Range Interpretation Comments AST (test code = AST) 123 See_Comment [Auto mated message] The system which ge nerated this result transmit swathi reference range : <=37. The reference range was not used to interpr et this result as deny l/abnormal. [facility] [id number] 09:29:00 Test Item Value Reference Range Interpretation Comments Alk Phos (test code = Alk Phos) 272 39-136 [facility] [id number] 09:29:00 Test Item Value Reference Range Interpretation Comments Bili Total (test code = Bili Total) 0.9 0.2-1.3 [facility] [id number] 09:29:00 Test Item Value Reference Range Interpretation Comments AGAP (test code = AGAP) 10.3 10.0-20.0 [facility] [employer] [id number] 09:29:00 Test Item Value Reference Range Interpretation Comments B/C Ratio (test code = B/C Ratio) 6 1 6-25 [facility] [id number] 09:29:00 Test Item Value Reference Range Interpretation Comments Globulin (test code = Globulin) 3.6 2.7-4.2 [facility] [id number] 09:29:00 Test Item Value Reference Range Interpretation Comments A/G Ratio (test code = A/G Ratio) 0.8 1 0.7-1.6 [facility] [id number] 09:29:00 Test Item Value Reference Range Interpretation Comments eGFR (test code = eGFR) 12 [facility] [id number] 09:29:00 Test Item Value Reference Range Interpretation Comments Phosphorus (test code = Phosphorus) 4.3 2.5-4.5 [facility] CenterDnalcmqMKSGPYYANH2290-94-08 09:29:00 Test Item Value Reference Range Interpretation Comments WBC (test code = WBC) 4.7 3.7-10.4 [facility] CampusBfefkcaMNSGRBKITO0353-93-85 09:29:00 Test Item Value Reference Range Interpretation Comments RBC (test code = RBC) 2.14 4.70-6.10 [facility] CampusGdeigoxMFYFIWNSPO1386-65-46 09:29:00 Test Item Value Reference Range Interpretation Comments Hgb (test code = Hgb) 7.6 14.0-18.0 [facility] CampusYkdpjpgBTTPCRPWBU0449-87-70 09:29:00 Test Item Value Reference Range Interpretation Comments Hct (test code = Hct) 22.8 42.0-54.0 [facility] CampusAhrjageTLDTWGVXAU4743-84-96 09:29:00 Test Item Value Reference Range Interpretation Comments MCV (test code = MCV) 106.6 80.0-94.0 [facility] CampusFethafcGKIGGWONYR8101-83-71 09:29:00 Test Item Value Reference Range Interpretation Comments MCH (test code = MCH) 35.6 pg 27.0-31.0 [facility] CampusMjpmbewTFGNMKLCNN0506-64-56 09:29:00 Test Item Value Reference Range Interpretation Comments MCHC (test code = MCHC) 33.4 32.0-36.0 [facility] CampusTrtvvfgCESVLPINYT5027-01-26 09:29:00 Test Item Value Reference Range Interpretation Comments RDW (test code = RDW) 24.3 11.5-14.5 [facility] CampusAxxcqzxJEOEIKNKDN9116-71-64 09:29:00 Test Item Value Reference Range Interpretation Comments Platelet (test code = Platelet) 148 133-450 [facility] CampusKrxglcfVMBAYCMNZX7766-40-90 09:29:00 Test Item Value Reference Range Interpretation Comments MPV (test code = MPV) 8.1 7.4-10.4 [facility] CampusQxlubhsOFGLLMXFZH6593-23-24 09:29:00 Test Item Value Reference Range Interpretation Comments D-Dimer (test code = D-Dimer) 3.63 [facility] CampusEarzjvgDVLXSINLQC0981-78-79 09:29:00 Test Item Value Reference Range Interpretation Comments Segs (test code = Segs) 74.8 45.0-75.0 [facility] CampusEkxkppnVOIMARYMPY9413-46-58 09:29:00 Test Item Value Reference Range Interpretation Comments Lymphocytes (test code = Lymphocytes) 15.5 20.0-40.0 [facility] CampusUpkbxdnJIMZBMUSVG6412-26-08 09:29:00 Test Item Value Reference Range Interpretation Comments Monocytes (test code = Monocytes) 9.5 2.0-12.0 [facility] CampusUwnnuqnNRHEUZSSES6076-72-91 09:29:00 Test Item Value Reference Range Interpretation Comments Basophils (test code = 0.2 See_Comment [Aut omated message] The Basophils) system which ge nerated this result tra nsmitted reference range : <=1.0. The reference r samantha was not used to int erpret this result as normal/abnormal . [facility] CenterPrudqfqAKLAULITTZ7093-13-23 09:29:00 Test Item Value Reference Range Interpretation Comments Neutrophils # (test code = Neutrophils 3.5 1.5-8.1 #) [facility] CampusNbyysrzTOWNNJRWHR1764-88-61 09:29:00 Test Item Value Reference Range Interpretation Comments Lymphocytes # (test code = Lymphocytes 0.7 1.0-5.5 #) [facility] CampusSxmjlmjRAWJOPLOCO9458-11-81 09:29:00 Test Item Value Reference Range Interpretation Comments Monocytes # (test code 0.4 See_Comment [Aut omated message] The = Monocytes #) system which generated this result tra nsmitted reference range : <=0.8. The reference r samantha was not used to int erpret this result as normal/abnormal . [facility] CenterTyneocrRATZTFOGYN7214-69-78 09:29:00 Test Item Value Reference Range Interpretation Comments Macrocyte (test code = 1+ *ABN*(12/16/21 Macrocyte) 4:29 AM) [facility] CenterWapsohvJRNAGUNJER5268-91-46 09:29:00 Test Item Value Reference Range Interpretation Comments C-REACTIVE PROTEIN (test code = 19.0 C-REACTIVE PROTEIN) [facility] [id number] 09:29:00 Test Item Value Reference Range Interpretation Comments Glucose Lvl (test code = Glucose Lvl) 199 70-99 [facility] CenterDispatch [id number] 09:29:00 Test Item Value Reference Range Interpretation Comments BUN (test code = BUN) 28 - [facility] CenterYospace Technologies [id number] 09:29:00 Test Item Value Reference Range Interpretation Comments Creatinine Lvl (test code = Creatinine 4.84 0.50-1.40 Lvl) [place] 506282-07-19 09:29:00 Test Item Value Reference Range Interpretation Comments Sodium Lvl (test code = Sodium Lvl) 134 135-145 [place] 506282-07-19 09:29:00 Test Item Value Reference Range Interpretation Comments Potassium Lvl (test code = Potassium 4.3 3.5-5.1 Lvl) [place] 506282-07-19 09:29:00 Test Item Value Reference Range Interpretation Comments Chloride Lvl (test code = Chloride Lvl) 100 95-109 [place] 506282-07-19 09:29:00 Test Item Value Reference Range Interpretation Comments CO2 (test code = CO2) 28 24-32 [place] 506282-07-19 09:29:00 Test Item Value Reference Range Interpretation Comments Calcium Lvl (test code = Calcium Lvl) 9.4 8.5-10.5 [place] 506282-07-19 09:29:00 Test Item Value Reference Range Interpretation Comments Total Protein (test code = Total 6.6 6.4-8.4 Protein) [place] 506282-07-19 09:29:00 Test Item Value Reference Range Interpretation Comments Albumin Lvl (test code = Albumin Lvl) 3.0 3.5-5.0 [place]282-07-19 09:29:00 Test Item Value Reference Range Interpretation Comments ALT (test code = ALT) 92 See_Comment [Auto mated message] The system which ge nerated this result transmit swathi reference range : <=65. The reference range was not used to interpr et this result as deny l/abnormal. [place] 506282-07-19 09:29:00 Test Item Value Reference Range Interpretation Comments Glucose Lvl (test code = Glucose Lvl) 199 70-99 [place] 506282-07-19 09:29:00 Test Item Value Reference Range Interpretation Comments BUN (test code = BUN) 28 7-22 [place] 506282-07-19 09:29:00 Test Item Value Reference Range Interpretation Comments Creatinine Lvl (test code = Creatinine 4.84 0.50-1.40 Lvl) [place] 506282-07-19 09:29:00 Test Item Value Reference Range Interpretation Comments Sodium Lvl (test code = Sodium Lvl) 134 135-145 [place] 506282-07-19 09:29:00 Test Item Value Reference Range Interpretation Comments AST (test code = AST) 123 See_Comment [Auto mated message] The system which ge nerated this result transmit swathi reference range : <=37. The reference range was not used to interpr et this result as deny l/abnormal. [place] 506282-07-19 09:29:00 Test Item Value Reference Range Interpretation Comments Potassium Lvl (test code = Potassium 4.3 3.5-5.1 Lvl) [place] [address]-07-19 09:29:00 Test Item Value Reference Range Interpretation Comments Chloride Lvl (test code = Chloride Lvl) 100 95-109 [place] 506282-07-19 09:29:00 Test Item Value Reference Range Interpretation Comments CO2 (test code = CO2) 28 24-32 [facility] CenterTarsa TherapeuticsHEATHER VILLE [id number] 09:29:00 Test Item Value Reference Range Interpretation Comments Calcium Lvl (test code = Calcium Lvl) 9.4 8.5-10.5 [place] [address]-07-19 09:29:00 Test Item Value Reference Range Interpretation Comments Total Protein (test code = Total 6.6 6.4-8.4 Protein) [place] 506282-07-19 09:29:00 Test Item Value Reference Range Interpretation Comments Albumin Lvl (test code = Albumin Lvl) 3.0 3.5-5.0 [facility] CenterTarsa TherapeuticsHEATHER VILLE [id number] 09:29:00 Test Item Value Reference Range Interpretation Comments ALT (test code = ALT) 92 See_Comment [Auto mated message] The system which ge nerated this result transmit swathi reference range : <=65. The reference range was not used to interpr et this result as deny l/abnormal. [facility] CenterYospace Technologies [id number] 09:29:00 Test Item Value Reference Range Interpretation Comments AST (test code = AST) 123 See_Comment [Auto mated message] The system which ge nerated this result transmit swathi reference range : <=37. The reference range was not used to interpr et this result as deny l/abnormal. [facility] CenterDispatch [id number] 09:29:00 Test Item Value Reference Range Interpretation Comments Alk Phos (test code = Alk Phos) 272 39-136 [place] 506282-07-19 09:29:00 Test Item Value Reference Range Interpretation Comments Bili Total (test code = Bili Total) 0.9 0.2-1.3 [place] 506282-07-19 09:29:00 Test Item Value Reference Range Interpretation Comments Alk Phos (test code = Alk Phos) 272 39-136 [place] 506282-07-19 09:29:00 Test Item Value Reference Range Interpretation Comments AGAP (test code = AGAP) 10.3 10.0-20.0 [place] 506282-07-19 09:29:00 Test Item Value Reference Range Interpretation Comments B/C Ratio (test code = B/C Ratio) 6 1 6-25 [place] [address]-07-19 09:29:00 Test Item Value Reference Range Interpretation Comments Globulin (test code = Globulin) 3.6 2.7-4.2 [place] 506282-07-19 09:29:00 Test Item Value Reference Range Interpretation Comments A/G Ratio (test code = A/G Ratio) 0.8 1 0.7-1.6 [place] [address]-07-19 09:29:00 Test Item Value Reference Range Interpretation Comments eGFR (test code = eGFR) 12 [facility]2022-07-19 09:29:00 Test Item Value Reference Range Interpretation Comments Phosphorus (test code = Phosphorus) 4.3 2.5-4.5 [place] 155092-07-19 09:29:00 Test Item Value Reference Range Interpretation Comments WBC (test code = WBC) 4.7 3.7-10.4 [place] [address]-07-19 09:29:00 Test Item Value Reference Range Interpretation Comments RBC (test code = RBC) 2.14 4.70-6.10 [place] [address]-07-19 09:29:00 Test Item Value Reference Range Interpretation Comments Hgb (test code = Hgb) 7.6 14.0-18.0 [place] [address]-07-19 09:29:00 Test Item Value Reference Range Interpretation Comments Hct (test code = Hct) 22.8 42.0-54.0 [facility]2022-07-19 09:29:00 Test Item Value Reference Range Interpretation Comments Bili Total (test code = Bili Total) 0.9 0.2-1.3 [facility] CampusGfjnglgVKVSAZXEEM4980-88-41 09:29:00 Test Item Value Reference Range Interpretation Comments MCV (test code = MCV) 106.6 80.0-94.0 [facility] CampusYgkbwzpMFQQDKPQYV6587-32-78 09:29:00 Test Item Value Reference Range Interpretation Comments MCH (test code = MCH) 35.6 pg 27.0-31.0 [facility] CampusElwjmttRNIKWWPRMA0490-61-81 09:29:00 Test Item Value Reference Range Interpretation Comments MCHC (test code = MCHC) 33.4 32.0-36.0 [facility] CampusQjbxfwgUYVYQWVDOH4211-89-38 09:29:00 Test Item Value Reference Range Interpretation Comments RDW (test code = RDW) 24.3 11.5-14.5 [facility] CampusHwigowoKVYWDZOGXH2211-22-30 09:29:00 Test Item Value Reference Range Interpretation Comments Platelet (test code = Platelet) 148 133-450 [facility] CampusDgwvrzbZNEASGHVVA6201-46-27 09:29:00 Test Item Value Reference Range Interpretation Comments MPV (test code = MPV) 8.1 7.4-10.4 [facility] CampusUlohpenPFTSXJSCLU1281-98-00 09:29:00 Test Item Value Reference Range Interpretation Comments D-Dimer (test code = D-Dimer) 3.63 [facility] CampusDylseqzRRGVEMXVDL1924-17-44 09:29:00 Test Item Value Reference Range Interpretation Comments Segs (test code = Segs) 74.8 45.0-75.0 [facility] CampusMcvuzruCXQQFJNBWO0250-16-63 09:29:00 Test Item Value Reference Range Interpretation Comments Lymphocytes (test code = Lymphocytes) 15.5 20.0-40.0 [facility] CampusGwgchhjCPAYPGZIDW1033-98-99 09:29:00 Test Item Value Reference Range Interpretation Comments Monocytes (test code = Monocytes) 9.5 2.0-12.0 [facility]2022-07-19 09:29:00 Test Item Value Reference Range Interpretation Comments AGAP (test code = AGAP) 10.3 10.0-20.0 [facility] CampusMyvissnHOWBVCXBEJ1987-69-01 09:29:00 Test Item Value Reference Range Interpretation Comments Basophils (test code = 0.2 See_Comment [Aut omated message] The Basophils) system which ge nerated this result tra nsmitted reference range : <=1.0. The reference r samantha was not used to int erpret this result as normal/abnormal . [facility] CampusGlmmqolNXWUPGNATB2219-60-08 09:29:00 Test Item Value Reference Range Interpretation Comments Neutrophils # (test code = Neutrophils 3.5 1.5-8.1 #) [facility] CampusOnurjwgOZNVLPFMRE9709-75-97 09:29:00 Test Item Value Reference Range Interpretation Comments Lymphocytes # (test code = Lymphocytes 0.7 1.0-5.5 #) [facility] CampusPngjdckMNUHYXYZMH6556-63-19 09:29:00 Test Item Value Reference Range Interpretation Comments Monocytes # (test code 0.4 See_Comment [Aut omated message] The = Monocytes #) system which generated this result tra nsmitted reference range : <=0.8. The reference r samantha was not used to int erpret this result as normal/abnormal . [facility]PqvovxaCPVMKGECEK8358-72-55 09:29:00 Test Item Value Reference Range Interpretation Comments Macrocyte (test code = 1+ *ABN*(12/16/21 Macrocyte) 4:29 AM) [facility] CenterKrkoyiaZUCOLXENGQ9733-87-44 09:29:00 Test Item Value Reference Range Interpretation Comments C-REACTIVE PROTEIN (test code = 19.0 C-REACTIVE PROTEIN) [facility] CenterYospace Technologies [id number] 09:29:00 Test Item Value Reference Range Interpretation Comments B/C Ratio (test code = B/C Ratio) 6 1 6-25 [facility] [id number] 09:29:00 Test Item Value Reference Range Interpretation Comments Globulin (test code = Globulin) 3.6 2.7-4.2 [facility]2022-07-19 09:29:00 Test Item Value Reference Range Interpretation Comments A/G Ratio (test code = A/G Ratio) 0.8 1 0.7-1.6 [facility] [id number] 09:29:00 Test Item Value Reference Range Interpretation Comments eGFR (test code = eGFR) 12 [facility] [id number] 09:29:00 Test Item Value Reference Range Interpretation Comments Phosphorus (test code = Phosphorus) 4.3 2.5-4.5 [facility] CampusLrstcwxDOKGHIJLPH0335-50-22 09:29:00 Test Item Value Reference Range Interpretation Comments WBC (test code = WBC) 4.7 3.7-10.4 [facility] CampusMmxiizqFNDJFVOBWP6954-22-04 09:29:00 Test Item Value Reference Range Interpretation Comments RBC (test code = RBC) 2.14 4.70-6.10 [facility] CampusMylcqeyLPVNUJWKNH2631-66-70 09:29:00 Test Item Value Reference Range Interpretation Comments Hgb (test code = Hgb) 7.6 14.0-18.0 [facility] CampusGogtkmzEGXGQXSRVU5490-48-00 09:29:00 Test Item Value Reference Range Interpretation Comments Hct (test code = Hct) 22.8 42.0-54.0 [facility] CampusAclcllqMVGODNBHLL1858-13-86 09:29:00 Test Item Value Reference Range Interpretation Comments MCV (test code = MCV) 106.6 80.0-94.0 [facility] CampusChpqxqgYPDLQSKSGJ2555-89-77 09:29:00 Test Item Value Reference Range Interpretation Comments MCH (test code = MCH) 35.6 pg 27.0-31.0 [facility] CampusYjyjwjlKCBAXCQGWA7960-54-74 09:29:00 Test Item Value Reference Range Interpretation Comments MCHC (test code = MCHC) 33.4 32.0-36.0 [facility] CampusXjgrmhbRWWUZQWHIB7706-46-19 09:29:00 Test Item Value Reference Range Interpretation Comments RDW (test code = RDW) 24.3 11.5-14.5 [facility] CampusEbattngPWPUPXTGOE6971-79-29 09:29:00 Test Item Value Reference Range Interpretation Comments Platelet (test code = Platelet) 148 133-450 [facility] CampusQdjefavAVIKKLVDRW8051-13-31 09:29:00 Test Item Value Reference Range Interpretation Comments MPV (test code = MPV) 8.1 7.4-10.4 [facility] CampusMaixbwbAYIQZXAJEP0354-37-13 09:29:00 Test Item Value Reference Range Interpretation Comments D-Dimer (test code = D-Dimer) 3.63 [facility] CampusTyiavabUBIKXVTUGH2681-60-99 09:29:00 Test Item Value Reference Range Interpretation Comments Segs (test code = Segs) 74.8 45.0-75.0 [facility] CenterQuvdquqGGXSERDOKJ7985-24-11 09:29:00 Test Item Value Reference Range Interpretation Comments Lymphocytes (test code = Lymphocytes) 15.5 20.0-40.0 [facility] CampusXopopjnOHPETQYJJP6832-22-60 09:29:00 Test Item Value Reference Range Interpretation Comments Monocytes (test code = Monocytes) 9.5 2.0-12.0 [facility] CampusOnrcasuPDNCVHPOKO7094-77-97 09:29:00 Test Item Value Reference Range Interpretation Comments Basophils (test code = 0.2 See_Comment [Aut omated message] The Basophils) system which ge nerated this result tra nsmitted reference range : <=1.0. The reference r samantha was not used to int erpret this result as normal/abnormal . [facility] CenterEzenuevQNPVBVJOGD8223-75-81 09:29:00 Test Item Value Reference Range Interpretation Comments Neutrophils # (test code = Neutrophils 3.5 1.5-8.1 #) [facility] CenterUdutqcxZZWMJAUPMI0976-93-92 09:29:00 Test Item Value Reference Range Interpretation Comments Lymphocytes # (test code = Lymphocytes 0.7 1.0-5.5 #) [facility] CampusRfbcjxgAVYJUSTZAQ9618-53-43 09:29:00 Test Item Value Reference Range Interpretation Comments Monocytes # (test code 0.4 See_Comment [Aut omated message] The = Monocytes #) system which generated this result tra nsmitted reference range : <=0.8. The reference r samantha was not used to int erpret this result as normal/abnormal . [facility] CenterAvppflvNSMHJBXTQJ3449-38-33 09:29:00 Test Item Value Reference Range Interpretation Comments Macrocyte (test code = 1+ *ABN*(12/16/21 Macrocyte) 4:29 AM) [facility] CenterPbspnigVEZNVCYCKD9664-33-33 09:29:00 Test Item Value Reference Range Interpretation Comments C-REACTIVE PROTEIN (test code = 19.0 C-REACTIVE PROTEIN) [facility] CenterDispatch [id number] 09:29:00 Test Item Value Reference Range Interpretation Comments Glucose Lvl (test code = Glucose Lvl) 199 70-99 [facility]Dispatch [id number] 09:29:00 Test Item Value Reference Range Interpretation Comments BUN (test code = BUN) 28 12-19 [facility] CenterDispatch [id number] 09:29:00 Test Item Value Reference Range Interpretation Comments Creatinine Lvl (test code = Creatinine 4.84 0.50-1.40 Lvl) [place] [address]-07-19 09:29:00 Test Item Value Reference Range Interpretation Comments Sodium Lvl (test code = Sodium Lvl) 134 135-145 [place] 506282-07-19 09:29:00 Test Item Value Reference Range Interpretation Comments Potassium Lvl (test code = Potassium 4.3 3.5-5.1 Lvl) [place] 506282-07-19 09:29:00 Test Item Value Reference Range Interpretation Comments Chloride Lvl (test code = Chloride Lvl) 100 95-109 [place] 506282-07-19 09:29:00 Test Item Value Reference Range Interpretation Comments CO2 (test code = CO2) 28 24-32 [place] 506282-07-19 09:29:00 Test Item Value Reference Range Interpretation Comments Calcium Lvl (test code = Calcium Lvl) 9.4 8.5-10.5 [place] 506282-07-19 09:29:00 Test Item Value Reference Range Interpretation Comments Total Protein (test code = Total 6.6 6.4-8.4 Protein) [place] 506282-07-19 09:29:00 Test Item Value Reference Range Interpretation Comments Albumin Lvl (test code = Albumin Lvl) 3.0 3.5-5.0 [place] 506282-07-19 09:29:00 Test Item Value Reference Range Interpretation Comments ALT (test code = ALT) 92 See_Comment [Auto mated message] The system which ge nerated this result transmit swathi reference range : <=65. The reference range was not used to interpr et this result as deny l/abnormal. [place] 506282-07-19 09:29:00 Test Item Value Reference Range Interpretation Comments AST (test code = AST) 123 See_Comment [Auto mated message] The system which ge nerated this result transmit swathi reference range : <=37. The reference range was not used to interpr et this result as deny l/abnormal. [place] 506282-07-19 09:29:00 Test Item Value Reference Range Interpretation Comments Alk Phos (test code = Alk Phos) 272 39-136 [place] 506282-07-19 09:29:00 Test Item Value Reference Range Interpretation Comments Bili Total (test code = Bili Total) 0.9 0.2-1.3 [place] 506282-07-19 09:29:00 Test Item Value Reference Range Interpretation Comments AGAP (test code = AGAP) 10.3 10.0-20.0 [place] 506282-07-19 09:29:00 Test Item Value Reference Range Interpretation Comments B/C Ratio (test code = B/C Ratio) 6 1 6-25 [place] 506282-07-19 09:29:00 Test Item Value Reference Range Interpretation Comments Globulin (test code = Globulin) 3.6 2.7-4.2 [place] 506282-07-19 09:29:00 Test Item Value Reference Range Interpretation Comments A/G Ratio (test code = A/G Ratio) 0.8 1 0.7-1.6 [place] 506282-07-19 09:29:00 Test Item Value Reference Range Interpretation Comments eGFR (test code = eGFR) 12 [facility]2022-07-19 09:29:00 Test Item Value Reference Range Interpretation Comments Phosphorus (test code = Phosphorus) 4.3 2.5-4.5 [place] 155092-07-19 09:29:00 Test Item Value Reference Range Interpretation Comments WBC (test code = WBC) 4.7 3.7-10.4 [place] 155092-07-19 09:29:00 Test Item Value Reference Range Interpretation Comments RBC (test code = RBC) 2.14 4.70-6.10 [place] 155092-07-19 09:29:00 Test Item Value Reference Range Interpretation Comments Hgb (test code = Hgb) 7.6 14.0-18.0 [place] 155092-07-19 09:29:00 Test Item Value Reference Range Interpretation Comments Hct (test code = Hct) 22.8 42.0-54.0 [place] 155092-07-19 09:29:00 Test Item Value Reference Range Interpretation Comments MCV (test code = MCV) 106.6 80.0-94.0 [place] [address]-07-19 09:29:00 Test Item Value Reference Range Interpretation Comments MCH (test code = MCH) 35.6 pg 27.0-31.0 [facility] CampusQtauqaiOFEGWNZQNO9347-60-67 09:29:00 Test Item Value Reference Range Interpretation Comments MCHC (test code = MCHC) 33.4 32.0-36.0 [facility] CampusQfnjwsqBARZBAWWTS8782-94-78 09:29:00 Test Item Value Reference Range Interpretation Comments RDW (test code = RDW) 24.3 11.5-14.5 [place] 155092-07-19 09:29:00 Test Item Value Reference Range Interpretation Comments Platelet (test code = Platelet) 148 133-450 [place] 155092-07-19 09:29:00 Test Item Value Reference Range Interpretation Comments MPV (test code = MPV) 8.1 7.4-10.4 [place] 155092-07-19 09:29:00 Test Item Value Reference Range Interpretation Comments D-Dimer (test code = D-Dimer) 3.63 [place] 155092-07-19 09:29:00 Test Item Value Reference Range Interpretation Comments Segs (test code = Segs) 74.8 45.0-75.0 [place] 155092-07-19 09:29:00 Test Item Value Reference Range Interpretation Comments Lymphocytes (test code = Lymphocytes) 15.5 20.0-40.0 [place] 155092-07-19 09:29:00 Test Item Value Reference Range Interpretation Comments Monocytes (test code = Monocytes) 9.5 2.0-12.0 [place] 155092-07-19 09:29:00 Test Item Value Reference Range Interpretation Comments Basophils (test code = 0.2 See_Comment [Aut omated message] The Basophils) system which ge nerated this result tra nsmitted reference range : <=1.0. The reference r samantha was not used to int erpret this result as normal/abnormal . [facility] CampusHyyhesqOWRHVXLYMT9158-84-08 09:29:00 Test Item Value Reference Range Interpretation Comments Neutrophils # (test code = Neutrophils 3.5 1.5-8.1 #) [place] 155092-07-19 09:29:00 Test Item Value Reference Range Interpretation Comments Lymphocytes # (test code = Lymphocytes 0.7 1.0-5.5 #) [facility] CampusKttzjfaTNSZZCVZBX6319-52-67 09:29:00 Test Item Value Reference Range Interpretation Comments Monocytes # (test code 0.4 See_Comment [Aut omated message] The = Monocytes #) system which generated this result tra nsmitted reference range : <=0.8. The reference r samantha was not used to int erpret this result as normal/abnormal . [facility] CampusCwvvzejLPMKZSFLJT3373-32-51 09:29:00 Test Item Value Reference Range Interpretation Comments Macrocyte (test code = 1+ *ABN*(12/16/21 Macrocyte) 4:29 AM) [facility] CenterLwghlkeTWWXUFIGTN3209-81-80 09:29:00 Test Item Value Reference Range Interpretation Comments C-REACTIVE PROTEIN (test code = 19.0 C-REACTIVE PROTEIN) [facility] CenterY[facility] [id number] 09:29:00 Test Item Value Reference Range Interpretation Comments Glucose Lvl (test code = Glucose Lvl) 199 70-99 [facility] [id number] 09:29:00 Test Item Value Reference Range Interpretation Comments BUN (test code = BUN) 28 7-22 [facility] [id number] 09:29:00 Test Item Value Reference Range Interpretation Comments Creatinine Lvl (test code = Creatinine 4.84 0.50-1.40 Lvl) [facility]Dispatch [id number] 09:29:00 Test Item Value Reference Range Interpretation Comments Sodium Lvl (test code = Sodium Lvl) 134 135-145 [facility]Dispatch [id number] 09:29:00 Test Item Value Reference Range Interpretation Comments Potassium Lvl (test code = Potassium 4.3 3.5-5.1 Lvl) [facility]Dispatch [id number] 09:29:00 Test Item Value Reference Range Interpretation Comments Chloride Lvl (test code = Chloride Lvl) 100 95-109 [facility] [id number] 09:29:00 Test Item Value Reference Range Interpretation Comments CO2 (test code = CO2) 28 24-32 [facility] [id number] 09:29:00 Test Item Value Reference Range Interpretation Comments Calcium Lvl (test code = Calcium Lvl) 9.4 8.5-10.5 [facility]Dispatch [id number] 09:29:00 Test Item Value Reference Range Interpretation Comments Total Protein (test code = Total 6.6 6.4-8.4 Protein) [place] 506282-07-19 09:29:00 Test Item Value Reference Range Interpretation Comments Albumin Lvl (test code = Albumin Lvl) 3.0 3.5-5.0 [facility] [id number] 09:29:00 Test Item Value Reference Range Interpretation Comments ALT (test code = ALT) 92 See_Comment [Auto mated message] The system which ge nerated this result transmit swathi reference range : <=65. The reference range was not used to interpr et this result as deny l/abnormal. [facility] [id number] 09:29:00 Test Item Value Reference Range Interpretation Comments AST (test code = AST) 123 See_Comment [Auto mated message] The system which ge nerated this result transmit swathi reference range : <=37. The reference range was not used to interpr et this result as deny l/abnormal. [facility]Dispatch [id number] 09:29:00 Test Item Value Reference Range Interpretation Comments Alk Phos (test code = Alk Phos) 272 39-136 [facility]Dispatch [id number] 09:29:00 Test Item Value Reference Range Interpretation Comments Bili Total (test code = Bili Total) 0.9 0.2-1.3 [facility]Dispatch [id number] 09:29:00 Test Item Value Reference Range Interpretation Comments AGAP (test code = AGAP) 10.3 10.0-20.0 [facility]Dispatch [id number] 09:29:00 Test Item Value Reference Range Interpretation Comments B/C Ratio (test code = B/C Ratio) 6 1 6-25 [facility]Dispatch [id number] 09:29:00 Test Item Value Reference Range Interpretation Comments Globulin (test code = Globulin) 3.6 2.7-4.2 [facility]Dispatch [id number] 09:29:00 Test Item Value Reference Range Interpretation Comments A/G Ratio (test code = A/G Ratio) 0.8 1 0.7-1.6 [facility] CenterDispatch [id number] 09:29:00 Test Item Value Reference Range Interpretation Comments eGFR (test code = eGFR) 12 [facility]2022-07-19 09:29:00 Test Item Value Reference Range Interpretation Comments Phosphorus (test code = Phosphorus) 4.3 2.5-4.5 [facility]DqmnwshTSHZEEYNOU3958-93-88 09:29:00 Test Item Value Reference Range Interpretation Comments WBC (test code = WBC) 4.7 3.7-10.4 [facility] CampusUtuqfawIJZDZQIMOY2567-22-50 09:29:00 Test Item Value Reference Range Interpretation Comments RBC (test code = RBC) 2.14 4.70-6.10 [facility] CampusKyttxafQQNDZVUTFM8392-36-48 09:29:00 Test Item Value Reference Range Interpretation Comments Hgb (test code = Hgb) 7.6 14.0-18.0 [facility] CampusFmzpelfNRYTMXLRBJ8981-98-97 09:29:00 Test Item Value Reference Range Interpretation Comments Hct (test code = Hct) 22.8 42.0-54.0 [facility] CampusSxmkgvmHWNHZUUQNV0202-25-49 09:29:00 Test Item Value Reference Range Interpretation Comments MCV (test code = MCV) 106.6 80.0-94.0 [facility] CampusUvnsrtlEVMCNSYRYD7599-24-83 09:29:00 Test Item Value Reference Range Interpretation Comments MCH (test code = MCH) 35.6 pg 27.0-31.0 [facility] CampusPpxuitnOUJSBTRKVQ2515-55-12 09:29:00 Test Item Value Reference Range Interpretation Comments MCHC (test code = MCHC) 33.4 32.0-36.0 [facility] CampusFzccptxXHSFEDULMA8731-32-34 09:29:00 Test Item Value Reference Range Interpretation Comments RDW (test code = RDW) 24.3 11.5-14.5 [place] 155092-07-19 09:29:00 Test Item Value Reference Range Interpretation Comments Platelet (test code = Platelet) 148 133-450 [facility] CampusGkydnosZQWQIYOXAJ2803-49-69 09:29:00 Test Item Value Reference Range Interpretation Comments MPV (test code = MPV) 8.1 7.4-10.4 [place] 155092-07-19 09:29:00 Test Item Value Reference Range Interpretation Comments D-Dimer (test code = D-Dimer) 3.63 [place] 155092-07-19 09:29:00 Test Item Value Reference Range Interpretation Comments Segs (test code = Segs) 74.8 45.0-75.0 [facility] CampusVwmzbhiPLYECFRMHX3034-81-49 09:29:00 Test Item Value Reference Range Interpretation Comments Lymphocytes (test code = Lymphocytes) 15.5 20.0-40.0 [facility] CampusHcquzslKVHSEZZBOS0569-99-00 09:29:00 Test Item Value Reference Range Interpretation Comments Monocytes (test code = Monocytes) 9.5 2.0-12.0 [facility] CampusQlymvqkSUNWUSMINM6008-61-70 09:29:00 Test Item Value Reference Range Interpretation Comments Basophils (test code = 0.2 See_Comment [Aut omated message] The Basophils) system which ge nerated this result tra nsmitted reference range : <=1.0. The reference r samantha was not used to int erpret this result as normal/abnormal . [facility] CampusPljynzqYXGYTHZJDJ1952-26-53 09:29:00 Test Item Value Reference Range Interpretation Comments Neutrophils # (test code = Neutrophils 3.5 1.5-8.1 #) [facility] CampusYepmfnyRYROYHFYNB2041-20-00 09:29:00 Test Item Value Reference Range Interpretation Comments Lymphocytes # (test code = Lymphocytes 0.7 1.0-5.5 #) [facility] CampusPsvezuqPUIBLWOKMH8381-16-54 09:29:00 Test Item Value Reference Range Interpretation Comments Monocytes # (test code 0.4 See_Comment [Aut omated message] The = Monocytes #) system which generated this result tra nsmitted reference range : <=0.8. The reference r samantha was not used to int erpret this result as normal/abnormal . [facility] CampusMsvshioKVMNBMQHGX7016-74-11 09:29:00 Test Item Value Reference Range Interpretation Comments Macrocyte (test code = 1+ *ABN*(12/16/21 Macrocyte) 4:29 AM) [facility] CenterSynlsrbFEZNIZEKHN9932-90-30 09:29:00 Test Item Value Reference Range Interpretation Comments C-REACTIVE PROTEIN (test code = 19.0 C-REACTIVE PROTEIN) [facility] CenterYospace Technologies [id number] 09:29:00 Test Item Value Reference Range Interpretation Comments Glucose Lvl (test code = Glucose Lvl) 199 70-99 [facility] CenterHEATH[place] [address]AXYKI7988-65-28 09:29:00 Test Item Value Reference Range Interpretation Comments BUN (test code = BUN) 28 7-22 [place] [address]-07-19 09:29:00 Test Item Value Reference Range Interpretation Comments Creatinine Lvl (test code = Creatinine 4.84 0.50-1.40 Lvl) [place] [address]-07-19 09:29:00 Test Item Value Reference Range Interpretation Comments Sodium Lvl (test code = Sodium Lvl) 134 135-145 [place] [address]-07-19 09:29:00 Test Item Value Reference Range Interpretation Comments Potassium Lvl (test code = Potassium 4.3 3.5-5.1 Lvl) [address]07-19 09:29:00 Test Item Value Reference Range Interpretation Comments Chloride Lvl (test code = Chloride Lvl) 100 95-109 [place] [address]-07-19 09:29:00 Test Item Value Reference Range Interpretation Comments CO2 (test code = CO2) 28 24-32 [place] 506282-07-19 09:29:00 Test Item Value Reference Range Interpretation Comments Calcium Lvl (test code = Calcium Lvl) 9.4 8.5-10.5 [place] [address]-07-19 09:29:00 Test Item Value Reference Range Interpretation Comments Total Protein (test code = Total 6.6 6.4-8.4 Protein) [place] [address]-07-19 09:29:00 Test Item Value Reference Range Interpretation Comments Albumin Lvl (test code = Albumin Lvl) 3.0 3.5-5.0 [place] [address]-07-19 09:29:00 Test Item Value Reference Range Interpretation Comments ALT (test code = ALT) 92 See_Comment [Auto mated message] The system which ge nerated this result transmit swathi reference range : <=65. The reference range was not used to interpr et this result as deny l/abnormal. [place] [address]-07-19 09:29:00 Test Item Value Reference Range Interpretation Comments AST (test code = AST) 123 See_Comment [Auto mated message] The system which ge nerated this result transmit swathi reference range : <=37. The reference range was not used to interpr et this result as deny l/abnormal. [place] 506282-07-19 09:29:00 Test Item Value Reference Range Interpretation Comments Alk Phos (test code = Alk Phos) 272 39-136 [place] 506282-07-19 09:29:00 Test Item Value Reference Range Interpretation Comments Bili Total (test code = Bili Total) 0.9 0.2-1.3 [place] 506282-07-19 09:29:00 Test Item Value Reference Range Interpretation Comments AGAP (test code = AGAP) 10.3 10.0-20.0 [place] 506282-07-19 09:29:00 Test Item Value Reference Range Interpretation Comments B/C Ratio (test code = B/C Ratio) 6 1 6-25 [place] 506282-07-19 09:29:00 Test Item Value Reference Range Interpretation Comments Globulin (test code = Globulin) 3.6 2.7-4.2 [place] 506282-07-19 09:29:00 Test Item Value Reference Range Interpretation Comments A/G Ratio (test code = A/G Ratio) 0.8 1 0.7-1.6 [place] 506282-07-19 09:29:00 Test Item Value Reference Range Interpretation Comments eGFR (test code = eGFR) 12 [facility]2022-07-19 09:29:00 Test Item Value Reference Range Interpretation Comments Phosphorus (test code = Phosphorus) 4.3 2.5-4.5 [facility] CampusUlnmdckLLSQDTKKQM4671-42-97 09:29:00 Test Item Value Reference Range Interpretation Comments WBC (test code = WBC) 4.7 3.7-10.4 [place] 155092-07-19 09:29:00 Test Item Value Reference Range Interpretation Comments RBC (test code = RBC) 2.14 4.70-6.10 [place] 155092-07-19 09:29:00 Test Item Value Reference Range Interpretation Comments Hgb (test code = Hgb) 7.6 14.0-18.0 [place] [address]-07-19 09:29:00 Test Item Value Reference Range Interpretation Comments Hct (test code = Hct) 22.8 42.0-54.0 [place] 155092-07-19 09:29:00 Test Item Value Reference Range Interpretation Comments MCV (test code = MCV) 106.6 80.0-94.0 [facility] CampusIclpfcfHBGJISHWCS6909-21-96 09:29:00 Test Item Value Reference Range Interpretation Comments MCH (test code = MCH) 35.6 pg 27.0-31.0 [place] 155092-07-19 09:29:00 Test Item Value Reference Range Interpretation Comments MCHC (test code = MCHC) 33.4 32.0-36.0 [place] 155092-07-19 09:29:00 Test Item Value Reference Range Interpretation Comments RDW (test code = RDW) 24.3 11.5-14.5 [place] 155092-07-19 09:29:00 Test Item Value Reference Range Interpretation Comments Platelet (test code = Platelet) 148 133-450 [place] 155092-07-19 09:29:00 Test Item Value Reference Range Interpretation Comments MPV (test code = MPV) 8.1 7.4-10.4 [place] 155092-07-19 09:29:00 Test Item Value Reference Range Interpretation Comments D-Dimer (test code = D-Dimer) 3.63 [facility] CampusBustufzEEBSOZUEUY3231-15-27 09:29:00 Test Item Value Reference Range Interpretation Comments Segs (test code = Segs) 74.8 45.0-75.0 [place] 155092-07-19 09:29:00 Test Item Value Reference Range Interpretation Comments Lymphocytes (test code = Lymphocytes) 15.5 20.0-40.0 [place] 155092-07-19 09:29:00 Test Item Value Reference Range Interpretation Comments Monocytes (test code = Monocytes) 9.5 2.0-12.0 [place] 155092-07-19 09:29:00 Test Item Value Reference Range Interpretation Comments Basophils (test code = 0.2 See_Comment [Aut omated message] The Basophils) system which ge nerated this result tra nsmitted reference range : <=1.0. The reference r samantha was not used to int erpret this result as normal/abnormal . [facility] CampusVewsdacXNOCIIVETP5811-10-75 09:29:00 Test Item Value Reference Range Interpretation Comments Neutrophils # (test code = Neutrophils 3.5 1.5-8.1 #) [facility] CampusYewajmsAUWKAKRZPB7884-40-63 09:29:00 Test Item Value Reference Range Interpretation Comments Lymphocytes # (test code = Lymphocytes 0.7 1.0-5.5 #) [facility] CampusPvddawfRSLUVDBCRG4136-85-45 09:29:00 Test Item Value Reference Range Interpretation Comments Monocytes # (test code 0.4 See_Comment [Aut omated message] The = Monocytes #) system which generated this result tra nsmitted reference range : <=0.8. The reference r samantha was not used to int erpret this result as normal/abnormal . [facility] CampusRbhohvaNRBZONCVCH6304-69-02 09:29:00 Test Item Value Reference Range Interpretation Comments Macrocyte (test code = 1+ *ABN*(12/16/21 Macrocyte) 4:29 AM) [place] 498432-07-19 09:29:00 Test Item Value Reference Range Interpretation Comments C-REACTIVE PROTEIN (test code = 19.0 C-REACTIVE PROTEIN) [facility]2022-07-19 09:29:00 Test Item Value Reference Range Interpretation Comments Glucose Lvl (test code = Glucose Lvl) 199 70-99 [facility]2022-07-19 09:29:00 Test Item Value Reference Range Interpretation Comments BUN (test code = BUN) 28 7- [facility]2022-07-19 09:29:00 Test Item Value Reference Range Interpretation Comments Creatinine Lvl (test code = Creatinine 4.84 0.50-1.40 Lvl) [facility]2022-07-19 09:29:00 Test Item Value Reference Range Interpretation Comments Sodium Lvl (test code = Sodium Lvl) 134 135-145 [place] 506282-07-19 09:29:00 Test Item Value Reference Range Interpretation Comments Potassium Lvl (test code = Potassium 4.3 3.5-5.1 Lvl) [place] 506282-07-19 09:29:00 Test Item Value Reference Range Interpretation Comments Chloride Lvl (test code = Chloride Lvl) 100 95-109 [place] 506282-07-19 09:29:00 Test Item Value Reference Range Interpretation Comments CO2 (test code = CO2) 28 24-32 [place] 506282-07-19 09:29:00 Test Item Value Reference Range Interpretation Comments Calcium Lvl (test code = Calcium Lvl) 9.4 8.5-10.5 [facility] CenterY[facility] Technologies [id number] 09:29:00 Test Item Value Reference Range Interpretation Comments Total Protein (test code = Total 6.6 6.4-8.4 Protein) [facility] [id number] 09:29:00 Test Item Value Reference Range Interpretation Comments Albumin Lvl (test code = Albumin Lvl) 3.0 3.5-5.0 [facility]Dispatch [id number] 09:29:00 Test Item Value Reference Range Interpretation Comments ALT (test code = ALT) 92 See_Comment [Auto mated message] The system which ge nerated this result transmit swathi reference range : <=65. The reference range was not used to interpr et this result as deny l/abnormal. [facility] CenterY[facility] NDXIV7622-12-02 09:29:00 Test Item Value Reference Range Interpretation Comments AST (test code = AST) 123 See_Comment [Auto mated message] The system which ge nerated this result transmit swathi reference range : <=37. The reference range was not used to interpr et this result as deny l/abnormal. [facility] CenterDispatch [id number] 09:29:00 Test Item Value Reference Range Interpretation Comments Alk Phos (test code = Alk Phos) 272 39-136 [facility] CenterDispatch [id number] 09:29:00 Test Item Value Reference Range Interpretation Comments Bili Total (test code = Bili Total) 0.9 0.2-1.3 [facility] [id number] 09:29:00 Test Item Value Reference Range Interpretation Comments AGAP (test code = AGAP) 10.3 10.0-20.0 [facility] CenterDispatch [id number] 09:29:00 Test Item Value Reference Range Interpretation Comments B/C Ratio (test code = B/C Ratio) 6 1 6-25 [facility] CenterDispatch [id number] 09:29:00 Test Item Value Reference Range Interpretation Comments Globulin (test code = Globulin) 3.6 2.7-4.2 [facility] [employer] [id number] 09:29:00 Test Item Value Reference Range Interpretation Comments A/G Ratio (test code = A/G Ratio) 0.8 1 0.7-1.6 [facility] [id number] 09:29:00 Test Item Value Reference Range Interpretation Comments eGFR (test code = eGFR) 12 [facility] [id number] 09:29:00 Test Item Value Reference Range Interpretation Comments Phosphorus (test code = Phosphorus) 4.3 2.5-4.5 [facility] CampusYsyolefDXEFVCSNAK3902-50-16 09:29:00 Test Item Value Reference Range Interpretation Comments WBC (test code = WBC) 4.7 3.7-10.4 [facility] CampusHufvcytQDPMAEXTOP9416-16-62 09:29:00 Test Item Value Reference Range Interpretation Comments RBC (test code = RBC) 2.14 4.70-6.10 [facility] CampusFnlnapcJGYICFRUMW4732-96-28 09:29:00 Test Item Value Reference Range Interpretation Comments Hgb (test code = Hgb) 7.6 14.0-18.0 [facility] CampusFrzcaooENNFETXNXN8959-39-39 09:29:00 Test Item Value Reference Range Interpretation Comments Hct (test code = Hct) 22.8 42.0-54.0 [facility] CampusRewtdduXNBJAUPGRJ0474-78-39 09:29:00 Test Item Value Reference Range Interpretation Comments MCV (test code = MCV) 106.6 80.0-94.0 [facility] CampusVyrivwiHSQXWCMIIE1888-93-81 09:29:00 Test Item Value Reference Range Interpretation Comments MCH (test code = MCH) 35.6 pg 27.0-31.0 [facility] CampusOgkquqaNGIFVLRFLB2956-83-26 09:29:00 Test Item Value Reference Range Interpretation Comments MCHC (test code = MCHC) 33.4 32.0-36.0 [facility] CampusXjlmsieZOTZKNTNSO8684-56-84 09:29:00 Test Item Value Reference Range Interpretation Comments RDW (test code = RDW) 24.3 11.5-14.5 [facility] CampusJvuyrqiPDTDTQJXON8417-12-09 09:29:00 Test Item Value Reference Range Interpretation Comments Platelet (test code = Platelet) 148 133-450 [facility] CampusNrgkowqPAYLNIXCIN8315-04-27 09:29:00 Test Item Value Reference Range Interpretation Comments MPV (test code = MPV) 8.1 7.4-10.4 [place] [address]-07-19 09:29:00 Test Item Value Reference Range Interpretation Comments D-Dimer (test code = D-Dimer) 3.63 [facility] CampusEcjzwkeWYOAOKJULG5840-56-40 09:29:00 Test Item Value Reference Range Interpretation Comments Segs (test code = Segs) 74.8 45.0-75.0 [facility] CampusHkhudijGJUKFBWHQI9846-70-49 09:29:00 Test Item Value Reference Range Interpretation Comments Lymphocytes (test code = Lymphocytes) 15.5 20.0-40.0 [facility] CampusNvbgfvaPAQXWVTHZA7502-35-05 09:29:00 Test Item Value Reference Range Interpretation Comments Monocytes (test code = Monocytes) 9.5 2.0-12.0 [facility] CampusAqhvuntZWJDVQRHGL9456-95-52 09:29:00 Test Item Value Reference Range Interpretation Comments Basophils (test code = 0.2 See_Comment [Aut omated message] The Basophils) system which ge nerated this result tra nsmitted reference range : <=1.0. The reference r samantha was not used to int erpret this result as normal/abnormal . [facility] CampusCtmapmfLPHABPMWLF1607-45-05 09:29:00 Test Item Value Reference Range Interpretation Comments Neutrophils # (test code = Neutrophils 3.5 1.5-8.1 #) [facility] CampusTmtxlmlVIEHTKVKAL5147-87-20 09:29:00 Test Item Value Reference Range Interpretation Comments Lymphocytes # (test code = Lymphocytes 0.7 1.0-5.5 #) [facility] CampusNwevizaAEYRMBZKSZ0672-79-56 09:29:00 Test Item Value Reference Range Interpretation Comments Monocytes # (test code 0.4 See_Comment [Aut omated message] The = Monocytes #) system which generated this result tra nsmitted reference range : <=0.8. The reference r samantha was not used to int erpret this result as normal/abnormal . [facility] CampusXqungwiJLQMMGSLWL6955-34-46 09:29:00 Test Item Value Reference Range Interpretation Comments Macrocyte (test code = 1+ *ABN*(12/16/21 Macrocyte) 4:29 AM) [facility]OlwjfeqMENKRVWJWJ2371-24-37 09:29:00 Test Item Value Reference Range Interpretation Comments C-REACTIVE PROTEIN (test code = 19.0 C-REACTIVE PROTEIN) [facility]2022-07-19 09:29:00 Test Item Value Reference Range Interpretation Comments Glucose Lvl (test code = Glucose Lvl) 199 70-99 [place] 506282-07-19 09:29:00 Test Item Value Reference Range Interpretation Comments BUN (test code = BUN) 28 7-22 [place] 506282-07-19 09:29:00 Test Item Value Reference Range Interpretation Comments Creatinine Lvl (test code = Creatinine 4.84 0.50-1.40 Lvl) [place] 506282-07-19 09:29:00 Test Item Value Reference Range Interpretation Comments Sodium Lvl (test code = Sodium Lvl) 134 135-145 [place] 506282-07-19 09:29:00 Test Item Value Reference Range Interpretation Comments Potassium Lvl (test code = Potassium 4.3 3.5-5.1 Lvl) [place] 506282-07-19 09:29:00 Test Item Value Reference Range Interpretation Comments Chloride Lvl (test code = Chloride Lvl) 100 95-109 [place] 506282-07-19 09:29:00 Test Item Value Reference Range Interpretation Comments CO2 (test code = CO2) 28 24-32 [place] 506282-07-19 09:29:00 Test Item Value Reference Range Interpretation Comments Calcium Lvl (test code = Calcium Lvl) 9.4 8.5-10.5 [place] 506282-07-19 09:29:00 Test Item Value Reference Range Interpretation Comments Total Protein (test code = Total 6.6 6.4-8.4 Protein) [place] 506282-07-19 09:29:00 Test Item Value Reference Range Interpretation Comments Albumin Lvl (test code = Albumin Lvl) 3.0 3.5-5.0 [place] 506282-07-19 09:29:00 Test Item Value Reference Range Interpretation Comments ALT (test code = ALT) 92 See_Comment [Auto mated message] The system which ge nerated this result transmit swathi reference range : <=65. The reference range was not used to interpr et this result as deny l/abnormal. [place] 506282-07-19 09:29:00 Test Item Value Reference Range Interpretation Comments AST (test code = AST) 123 See_Comment [Auto mated message] The system which ge nerated this result transmit swathi reference range : <=37. The reference range was not used to interpr et this result as deny l/abnormal. [place] 506282-07-19 09:29:00 Test Item Value Reference Range Interpretation Comments Alk Phos (test code = Alk Phos) 272 39-136 [place] 506282-07-19 09:29:00 Test Item Value Reference Range Interpretation Comments Bili Total (test code = Bili Total) 0.9 0.2-1.3 [place] 506282-07-19 09:29:00 Test Item Value Reference Range Interpretation Comments AGAP (test code = AGAP) 10.3 10.0-20.0 [place] 506282-07-19 09:29:00 Test Item Value Reference Range Interpretation Comments B/C Ratio (test code = B/C Ratio) 6 1 6-25 [place] 506282-07-19 09:29:00 Test Item Value Reference Range Interpretation Comments Globulin (test code = Globulin) 3.6 2.7-4.2 [place] 506282-07-19 09:29:00 Test Item Value Reference Range Interpretation Comments A/G Ratio (test code = A/G Ratio) 0.8 1 0.7-1.6 [place] 506282-07-19 09:29:00 Test Item Value Reference Range Interpretation Comments eGFR (test code = eGFR) 12 [facility]2022-07-19 09:29:00 Test Item Value Reference Range Interpretation Comments Phosphorus (test code = Phosphorus) 4.3 2.5-4.5 [place] 155092-07-19 09:29:00 Test Item Value Reference Range Interpretation Comments WBC (test code = WBC) 4.7 3.7-10.4 [place] 155092-07-19 09:29:00 Test Item Value Reference Range Interpretation Comments RBC (test code = RBC) 2.14 4.70-6.10 [place] 155092-07-19 09:29:00 Test Item Value Reference Range Interpretation Comments Hgb (test code = Hgb) 7.6 14.0-18.0 [place] 155092-07-19 09:29:00 Test Item Value Reference Range Interpretation Comments Hct (test code = Hct) 22.8 42.0-54.0 [place] 155092-07-19 09:29:00 Test Item Value Reference Range Interpretation Comments MCV (test code = MCV) 106.6 80.0-94.0 [place] 155092-07-19 09:29:00 Test Item Value Reference Range Interpretation Comments MCH (test code = MCH) 35.6 pg 27.0-31.0 [place] 155092-07-19 09:29:00 Test Item Value Reference Range Interpretation Comments MCHC (test code = MCHC) 33.4 32.0-36.0 [place] 155092-07-19 09:29:00 Test Item Value Reference Range Interpretation Comments RDW (test code = RDW) 24.3 11.5-14.5 [place] 155092-07-19 09:29:00 Test Item Value Reference Range Interpretation Comments Platelet (test code = Platelet) 148 133-450 [place] 155092-07-19 09:29:00 Test Item Value Reference Range Interpretation Comments MPV (test code = MPV) 8.1 7.4-10.4 [place] 155092-07-19 09:29:00 Test Item Value Reference Range Interpretation Comments D-Dimer (test code = D-Dimer) 3.63 [place] 155092-07-19 09:29:00 Test Item Value Reference Range Interpretation Comments Segs (test code = Segs) 74.8 45.0-75.0 [place] 155092-07-19 09:29:00 Test Item Value Reference Range Interpretation Comments Lymphocytes (test code = Lymphocytes) 15.5 20.0-40.0 [place] 155092-07-19 09:29:00 Test Item Value Reference Range Interpretation Comments Monocytes (test code = Monocytes) 9.5 2.0-12.0 [place] [address]-07-19 09:29:00 Test Item Value Reference Range Interpretation Comments Basophils (test code = 0.2 See_Comment [Aut omated message] The Basophils) system which ge nerated this result tra nsmitted reference range : <=1.0. The reference r samantha was not used to int erpret this result as normal/abnormal . [place] 155092-07-19 09:29:00 Test Item Value Reference Range Interpretation Comments Neutrophils # (test code = Neutrophils 3.5 1.5-8.1 #) [facility] CampusAvbgcdlYBUFLKHYLK0302-71-36 09:29:00 Test Item Value Reference Range Interpretation Comments Lymphocytes # (test code = Lymphocytes 0.7 1.0-5.5 #) [place] 155092-07-19 09:29:00 Test Item Value Reference Range Interpretation Comments Monocytes # (test code 0.4 See_Comment [Aut omated message] The = Monocytes #) system which generated this result tra nsmitted reference range : <=0.8. The reference r samantha was not used to int erpret this result as normal/abnormal . [place] 155092-07-19 09:29:00 Test Item Value Reference Range Interpretation Comments Macrocyte (test code = 1+ *ABN*(12/16/21 Macrocyte) 4:29 AM) [id number] 09:29:00 Test Item Value Reference Range Interpretation Comments C-REACTIVE PROTEIN (test code = 19.0 C-REACTIVE PROTEIN) [place] 506282-07-19 09:29:00 Test Item Value Reference Range Interpretation Comments Glucose Lvl (test code = Glucose Lvl) 199 70-99 [facility]2022-07-19 09:29:00 Test Item Value Reference Range Interpretation Comments BUN (test code = BUN) 28 7-22 [place] 506282-07-19 09:29:00 Test Item Value Reference Range Interpretation Comments Creatinine Lvl (test code = Creatinine 4.84 0.50-1.40 Lvl) [place] 506282-07-19 09:29:00 Test Item Value Reference Range Interpretation Comments Sodium Lvl (test code = Sodium Lvl) 134 135-145 [place] 506282-07-19 09:29:00 Test Item Value Reference Range Interpretation Comments Potassium Lvl (test code = Potassium 4.3 3.5-5.1 Lvl) [place] 506282-07-19 09:29:00 Test Item Value Reference Range Interpretation Comments Chloride Lvl (test code = Chloride Lvl) 100 95-109 [place] 506282-07-19 09:29:00 Test Item Value Reference Range Interpretation Comments CO2 (test code = CO2) 28 24-32 [place] 506282-07-19 09:29:00 Test Item Value Reference Range Interpretation Comments Calcium Lvl (test code = Calcium Lvl) 9.4 8.5-10.5 [place] 506282-07-19 09:29:00 Test Item Value Reference Range Interpretation Comments Total Protein (test code = Total 6.6 6.4-8.4 Protein) [place] 506282-07-19 09:29:00 Test Item Value Reference Range Interpretation Comments Albumin Lvl (test code = Albumin Lvl) 3.0 3.5-5.0 [place] 506282-07-19 09:29:00 Test Item Value Reference Range Interpretation Comments ALT (test code = ALT) 92 See_Comment [Auto mated message] The system which ge nerated this result transmit swathi reference range : <=65. The reference range was not used to interpr et this result as deny l/abnormal. [place] 506282-07-19 09:29:00 Test Item Value Reference Range Interpretation Comments AST (test code = AST) 123 See_Comment [Auto mated message] The system which ge nerated this result transmit swathi reference range : <=37. The reference range was not used to interpr et this result as deny l/abnormal. [place] 506282-07-19 09:29:00 Test Item Value Reference Range Interpretation Comments Alk Phos (test code = Alk Phos) 272 39-136 [place] 506282-07-19 09:29:00 Test Item Value Reference Range Interpretation Comments Bili Total (test code = Bili Total) 0.9 0.2-1.3 [place] [address]-07-19 09:29:00 Test Item Value Reference Range Interpretation Comments AGAP (test code = AGAP) 10.3 10.0-20.0 [place] 506282-07-19 09:29:00 Test Item Value Reference Range Interpretation Comments B/C Ratio (test code = B/C Ratio) 6 1 6-25 [place] [address]-07-19 09:29:00 Test Item Value Reference Range Interpretation Comments Globulin (test code = Globulin) 3.6 2.7-4.2 [facility]2022-07-19 09:29:00 Test Item Value Reference Range Interpretation Comments A/G Ratio (test code = A/G Ratio) 0.8 1 0.7-1.6 [facility]2022-07-19 09:29:00 Test Item Value Reference Range Interpretation Comments eGFR (test code = eGFR) 12 [facility]2022-07-19 09:29:00 Test Item Value Reference Range Interpretation Comments Phosphorus (test code = Phosphorus) 4.3 2.5-4.5 [facility]UfnddhfHVRILTMNZL8901-33-[facility] 09:29:00 Test Item Value Reference Range Interpretation Comments WBC (test code = WBC) 4.7 3.7-10.4 [facility] CampusXzpybbjUDNMGEHFUL9307-31-14 09:29:00 Test Item Value Reference Range Interpretation Comments RBC (test code = RBC) 2.14 4.70-6.10 [facility] CampusGktzricWZGSIYLCAA1174-89-99 09:29:00 Test Item Value Reference Range Interpretation Comments Hgb (test code = Hgb) 7.6 14.0-18.0 [facility] CampusBinhjgoSLVUNHMGCK6969-74-37 09:29:00 Test Item Value Reference Range Interpretation Comments Hct (test code = Hct) 22.8 42.0-54.0 [facility] CampusPhtllhqPIGBHQETKA7448-61-80 09:29:00 Test Item Value Reference Range Interpretation Comments MCV (test code = MCV) 106.6 80.0-94.0 [facility] CampusOitjasjVOVOWJENES3693-16-98 09:29:00 Test Item Value Reference Range Interpretation Comments MCH (test code = MCH) 35.6 pg 27.0-31.0 [facility] CampusVjlqkzpWLTGTVNXDE6047-92-60 09:29:00 Test Item Value Reference Range Interpretation Comments MCHC (test code = MCHC) 33.4 32.0-36.0 [facility] CampusHdbznuoHDVDVHQZBA1362-32-20 09:29:00 Test Item Value Reference Range Interpretation Comments RDW (test code = RDW) 24.3 11.5-14.5 [facility] CampusYjzxmarODBNNDIPEE6887-95-62 09:29:00 Test Item Value Reference Range Interpretation Comments Platelet (test code = Platelet) 148 133-450 [facility] CampusXuboglpJJXAGOXFNA7163-68-94 09:29:00 Test Item Value Reference Range Interpretation Comments MPV (test code = MPV) 8.1 7.4-10.4 [facility] CampusRmvjshwOXIXCTESZS6276-46-14 09:29:00 Test Item Value Reference Range Interpretation Comments D-Dimer (test code = D-Dimer) 3.63 [facility] CampusKgtuiceEGGYVNGQKX6677-69-02 09:29:00 Test Item Value Reference Range Interpretation Comments Segs (test code = Segs) 74.8 45.0-75.0 [facility] CampusVoorjkeGPWLPTGYHW6328-87-12 09:29:00 Test Item Value Reference Range Interpretation Comments Lymphocytes (test code = Lymphocytes) 15.5 20.0-40.0 [facility] CampusZmzuuusWVNDTZVGIT7303-82-30 09:29:00 Test Item Value Reference Range Interpretation Comments Monocytes (test code = Monocytes) 9.5 2.0-12.0 [facility] CampusAodzleiHFANMDDAHI7902-40-80 09:29:00 Test Item Value Reference Range Interpretation Comments Basophils (test code = 0.2 See_Comment [Aut omated message] The Basophils) system which ge nerated this result tra nsmitted reference range : <=1.0. The reference r samantha was not used to int erpret this result as normal/abnormal . [facility] CampusRrernejVNFCREZPYV5738-38-20 09:29:00 Test Item Value Reference Range Interpretation Comments Neutrophils # (test code = Neutrophils 3.5 1.5-8.1 #) [facility] CampusPnwqwpsIZQDFIZSHN2606-62-90 09:29:00 Test Item Value Reference Range Interpretation Comments Lymphocytes # (test code = Lymphocytes 0.7 1.0-5.5 #) [facility] CampusSreyvwzLHYTZWVGJG0467-82-65 09:29:00 Test Item Value Reference Range Interpretation Comments Monocytes # (test code 0.4 See_Comment [Aut omated message] The = Monocytes #) system which generated this result tra nsmitted reference range : <=0.8. The reference r samantha was not used to int erpret this result as normal/abnormal . [facility] CampusEgqcbrlXDOLMKSGAB2511-88-65 09:29:00 Test Item Value Reference Range Interpretation Comments Macrocyte (test code = 1+ *ABN*(12/16/21 Macrocyte) 4:29 AM) [facility]RakosyeYDJUQZBDCA1810-48-67 09:29:00 Test Item Value Reference Range Interpretation Comments C-REACTIVE PROTEIN (test code = 19.0 C-REACTIVE PROTEIN) [place] [address]-07-19 09:29:00 Test Item Value Reference Range Interpretation Comments Glucose Lvl (test code = Glucose Lvl) 199 70-99 [place] [address]-07-19 09:29:00 Test Item Value Reference Range Interpretation Comments BUN (test code = BUN) 28 7-22 [place] 506282-07-19 09:29:00 Test Item Value Reference Range Interpretation Comments Creatinine Lvl (test code = Creatinine 4.84 0.50-1.40 Lvl) [place] 506282-07-19 09:29:00 Test Item Value Reference Range Interpretation Comments Sodium Lvl (test code = Sodium Lvl) 134 135-145 [place] 506282-07-19 09:29:00 Test Item Value Reference Range Interpretation Comments Potassium Lvl (test code = Potassium 4.3 3.5-5.1 Lvl) [place] 506282-07-19 09:29:00 Test Item Value Reference Range Interpretation Comments Chloride Lvl (test code = Chloride Lvl) 100 95-109 [place] 506282-07-19 09:29:00 Test Item Value Reference Range Interpretation Comments CO2 (test code = CO2) 28 24-32 [place] 506282-07-19 09:29:00 Test Item Value Reference Range Interpretation Comments Calcium Lvl (test code = Calcium Lvl) 9.4 8.5-10.5 [place] 506282-07-19 09:29:00 Test Item Value Reference Range Interpretation Comments Total Protein (test code = Total 6.6 6.4-8.4 Protein) [place] 506282-07-19 09:29:00 Test Item Value Reference Range Interpretation Comments Albumin Lvl (test code = Albumin Lvl) 3.0 3.5-5.0 [place] 506282-07-19 09:29:00 Test Item Value Reference Range Interpretation Comments ALT (test code = ALT) 92 See_Comment [Auto mated message] The system which ge nerated this result transmit swathi reference range : <=65. The reference range was not used to interpr et this result as deny l/abnormal. [place] 506282-07-19 09:29:00 Test Item Value Reference Range Interpretation Comments AST (test code = AST) 123 See_Comment [Auto mated message] The system which ge nerated this result transmit swathi reference range : <=37. The reference range was not used to interpr et this result as deny l/abnormal. [place] 506282-07-19 09:29:00 Test Item Value Reference Range Interpretation Comments Alk Phos (test code = Alk Phos) 272 39-136 [place] 506282-07-19 09:29:00 Test Item Value Reference Range Interpretation Comments Bili Total (test code = Bili Total) 0.9 0.2-1.3 [place] 506282-07-19 09:29:00 Test Item Value Reference Range Interpretation Comments AGAP (test code = AGAP) 10.3 10.0-20.0 [place] 506282-07-19 09:29:00 Test Item Value Reference Range Interpretation Comments B/C Ratio (test code = B/C Ratio) 6 1 6-25 [place]282-07-19 09:29:00 Test Item Value Reference Range Interpretation Comments Globulin (test code = Globulin) 3.6 2.7-4.2 [place] 506282-07-19 09:29:00 Test Item Value Reference Range Interpretation Comments A/G Ratio (test code = A/G Ratio) 0.8 1 0.7-1.6 [place] 506282-07-19 09:29:00 Test Item Value Reference Range Interpretation Comments eGFR (test code = eGFR) 12 [facility] [id number] 09:29:00 Test Item Value Reference Range Interpretation Comments Phosphorus (test code = Phosphorus) 4.3 2.5-4.5 [place] 155092-07-19 09:29:00 Test Item Value Reference Range Interpretation Comments WBC (test code = WBC) 4.7 3.7-10.4 [place] 155092-07-19 09:29:00 Test Item Value Reference Range Interpretation Comments RBC (test code = RBC) 2.14 4.70-6.10 [place] 155092-07-19 09:29:00 Test Item Value Reference Range Interpretation Comments Hgb (test code = Hgb) 7.6 14.0-18.0 [facility] CampusRszirhjIBGFIXUFTF8389-24-99 09:29:00 Test Item Value Reference Range Interpretation Comments Hct (test code = Hct) 22.8 42.0-54.0 [place] 155092-07-19 09:29:00 Test Item Value Reference Range Interpretation Comments MCV (test code = MCV) 106.6 80.0-94.0 [facility] CampusAqcfxugGSJODPDGWP9555-37-98 09:29:00 Test Item Value Reference Range Interpretation Comments MCH (test code = MCH) 35.6 pg 27.0-31.0 [facility] CampusLrkyefoUXOEWWSFZU1877-23-74 09:29:00 Test Item Value Reference Range Interpretation Comments MCHC (test code = MCHC) 33.4 32.0-36.0 [place] 155092-07-19 09:29:00 Test Item Value Reference Range Interpretation Comments RDW (test code = RDW) 24.3 11.5-14.5 [facility] CampusPhbabkgKNMBWBXWHG4272-99-89 09:29:00 Test Item Value Reference Range Interpretation Comments Platelet (test code = Platelet) 148 133-450 [facility] CampusChmepsnSICNBPZEAG9735-48-98 09:29:00 Test Item Value Reference Range Interpretation Comments MPV (test code = MPV) 8.1 7.4-10.4 [place] 155092-07-19 09:29:00 Test Item Value Reference Range Interpretation Comments D-Dimer (test code = D-Dimer) 3.63 [place] 155092-07-19 09:29:00 Test Item Value Reference Range Interpretation Comments Segs (test code = Segs) 74.8 45.0-75.0 [place] 155092-07-19 09:29:00 Test Item Value Reference Range Interpretation Comments Lymphocytes (test code = Lymphocytes) 15.5 20.0-40.0 [place] 155092-07-19 09:29:00 Test Item Value Reference Range Interpretation Comments Monocytes (test code = Monocytes) 9.5 2.0-12.0 [place] 155092-07-19 09:29:00 Test Item Value Reference Range Interpretation Comments Basophils (test code = 0.2 See_Comment [Aut omated message] The Basophils) system which ge nerated this result tra nsmitted reference range : <=1.0. The reference r samantha was not used to int erpret this result as normal/abnormal . [place] 155092-07-19 09:29:00 Test Item Value Reference Range Interpretation Comments Neutrophils # (test code = Neutrophils 3.5 1.5-8.1 #) [facility] CampusUvhlhzuUMXKFCMTHM1238-41-86 09:29:00 Test Item Value Reference Range Interpretation Comments Lymphocytes # (test code = Lymphocytes 0.7 1.0-5.5 #) [place] 155092-07-19 09:29:00 Test Item Value Reference Range Interpretation Comments Monocytes # (test code 0.4 See_Comment [Aut omated message] The = Monocytes #) system which generated this result tra nsmitted reference range : <=0.8. The reference r samantha was not used to int erpret this result as normal/abnormal . [place] 155092-07-19 09:29:00 Test Item Value Reference Range Interpretation Comments Macrocyte (test code = 1+ *ABN*(12/16/21 Macrocyte) 4:29 AM) [facility] CenterDmbnqouNCSCIUZRBQ9273-50-73 09:29:00 Test Item Value Reference Range Interpretation Comments C-REACTIVE PROTEIN (test code = 19.0 C-REACTIVE PROTEIN) [facility] [id number] 09:29:00 Test Item Value Reference Range Interpretation Comments Glucose Lvl (test code = Glucose Lvl) 199 70-99 [facility] CenterDispatch [id number] 09:29:00 Test Item Value Reference Range Interpretation Comments BUN (test code = BUN) 28 - [facility] [id number] 09:29:00 Test Item Value Reference Range Interpretation Comments Creatinine Lvl (test code = Creatinine 4.84 0.50-1.40 Lvl) [facility] [id number] 09:29:00 Test Item Value Reference Range Interpretation Comments Sodium Lvl (test code = Sodium Lvl) 134 135-145 [facility] [id number] 09:29:00 Test Item Value Reference Range Interpretation Comments Potassium Lvl (test code = Potassium 4.3 3.5-5.1 Lvl) [facility] CenterHE[facility] [id number] 09:29:00 Test Item Value Reference Range Interpretation Comments Chloride Lvl (test code = Chloride Lvl) 100 95-109 [facility] [id number] 09:29:00 Test Item Value Reference Range Interpretation Comments CO2 (test code = CO2) 28 24-32 [place] [address]-07-19 09:29:00 Test Item Value Reference Range Interpretation Comments Calcium Lvl (test code = Calcium Lvl) 9.4 8.5-10.5 [facility] CenterDispatch [id number] 09:29:00 Test Item Value Reference Range Interpretation Comments Total Protein (test code = Total 6.6 6.4-8.4 Protein) [facility] [id number] 09:29:00 Test Item Value Reference Range Interpretation Comments Albumin Lvl (test code = Albumin Lvl) 3.0 3.5-5.0 [facility] CenterDispatch [id number] 09:29:00 Test Item Value Reference Range Interpretation Comments ALT (test code = ALT) 92 See_Comment [Auto mated message] The system which ge nerated this result transmit swathi reference range : <=65. The reference range was not used to interpr et this result as deny l/abnormal. [facility] CenterDispatch [id number] 09:29:00 Test Item Value Reference Range Interpretation Comments AST (test code = AST) 123 See_Comment [Auto mated message] The system which ge nerated this result transmit swathi reference range : <=37. The reference range was not used to interpr et this result as deny l/abnormal. [facility] CenterDispatch [id number] 09:29:00 Test Item Value Reference Range Interpretation Comments Alk Phos (test code = Alk Phos) 272 39-136 [facility] CenterDispatch [id number] 09:29:00 Test Item Value Reference Range Interpretation Comments Bili Total (test code = Bili Total) 0.9 0.2-1.3 [facility] [id number] 09:29:00 Test Item Value Reference Range Interpretation Comments AGAP (test code = AGAP) 10.3 10.0-20.0 [facility] CenterDispatch [id number] 09:29:00 Test Item Value Reference Range Interpretation Comments B/C Ratio (test code = B/C Ratio) 6 1 6-25 [facility]2022-07-19 09:29:00 Test Item Value Reference Range Interpretation Comments Globulin (test code = Globulin) 3.6 2.7-4.2 [place] 506282-07-19 09:29:00 Test Item Value Reference Range Interpretation Comments A/G Ratio (test code = A/G Ratio) 0.8 1 0.7-1.6 [place] [address]-07-19 09:29:00 Test Item Value Reference Range Interpretation Comments eGFR (test code = eGFR) 12 [facility]2022-07-19 09:29:00 Test Item Value Reference Range Interpretation Comments Phosphorus (test code = Phosphorus) 4.3 2.5-4.5 [place] 155092-07-19 09:29:00 Test Item Value Reference Range Interpretation Comments WBC (test code = WBC) 4.7 3.7-10.4 [place] 155092-07-19 09:29:00 Test Item Value Reference Range Interpretation Comments RBC (test code = RBC) 2.14 4.70-6.10 [place] 155092-07-19 09:29:00 Test Item Value Reference Range Interpretation Comments Hgb (test code = Hgb) 7.6 14.0-18.0 [place] 155092-07-19 09:29:00 Test Item Value Reference Range Interpretation Comments Hct (test code = Hct) 22.8 42.0-54.0 [place] 155092-07-19 09:29:00 Test Item Value Reference Range Interpretation Comments MCV (test code = MCV) 106.6 80.0-94.0 [place] 155092-07-19 09:29:00 Test Item Value Reference Range Interpretation Comments MCH (test code = MCH) 35.6 pg 27.0-31.0 [place] 155092-07-19 09:29:00 Test Item Value Reference Range Interpretation Comments MCHC (test code = MCHC) 33.4 32.0-36.0 [place] 155092-07-19 09:29:00 Test Item Value Reference Range Interpretation Comments RDW (test code = RDW) 24.3 11.5-14.5 [place] 155092-07-19 09:29:00 Test Item Value Reference Range Interpretation Comments Platelet (test code = Platelet) 148 133-450 [place] 155092-07-19 09:29:00 Test Item Value Reference Range Interpretation Comments MPV (test code = MPV) 8.1 7.4-10.4 [place] 155092-07-19 09:29:00 Test Item Value Reference Range Interpretation Comments D-Dimer (test code = D-Dimer) 3.63 [place] 155092-07-19 09:29:00 Test Item Value Reference Range Interpretation Comments Segs (test code = Segs) 74.8 45.0-75.0 [place] 155092-07-19 09:29:00 Test Item Value Reference Range Interpretation Comments Lymphocytes (test code = Lymphocytes) 15.5 20.0-40.0 [place] 155092-07-19 09:29:00 Test Item Value Reference Range Interpretation Comments Monocytes (test code = Monocytes) 9.5 2.0-12.0 [place] 155092-07-19 09:29:00 Test Item Value Reference Range Interpretation Comments Basophils (test code = 0.2 See_Comment [Aut omated message] The Basophils) system which ge nerated this result tra nsmitted reference range : <=1.0. The reference r samantha was not used to int erpret this result as normal/abnormal . [place] 155092-07-19 09:29:00 Test Item Value Reference Range Interpretation Comments Neutrophils # (test code = Neutrophils 3.5 1.5-8.1 #) [facility] [id number] 09:29:00 Test Item Value Reference Range Interpretation Comments Lymphocytes # (test code = Lymphocytes 0.7 1.0-5.5 #) [place] 155092-07-19 09:29:00 Test Item Value Reference Range Interpretation Comments Monocytes # (test code 0.4 See_Comment [Aut omated message] The = Monocytes #) system which generated this result tra nsmitted reference range : <=0.8. The reference r samantha was not used to int erpret this result as normal/abnormal . [place] 155092-07-19 09:29:00 Test Item Value Reference Range Interpretation Comments Macrocyte (test code = 1+ *ABN*(12/16/21 Macrocyte) 4:29 AM) [facility] CenterGevkyxxOGHUEROSTR1892-42-42 09:29:00 Test Item Value Reference Range Interpretation Comments C-REACTIVE PROTEIN (test code = 19.0 C-REACTIVE PROTEIN) [place] 506282-07-19 09:29:00 Test Item Value Reference Range Interpretation Comments Glucose Lvl (test code = Glucose Lvl) 199 70-99 [place] 506282-07-19 09:29:00 Test Item Value Reference Range Interpretation Comments BUN (test code = BUN) 28 - [place] 506282-07-19 09:29:00 Test Item Value Reference Range Interpretation Comments Creatinine Lvl (test code = Creatinine 4.84 0.50-1.40 Lvl) [facility]2022-07-19 09:29:00 Test Item Value Reference Range Interpretation Comments Sodium Lvl (test code = Sodium Lvl) 134 135-145 [place] 506282-07-19 09:29:00 Test Item Value Reference Range Interpretation Comments Potassium Lvl (test code = Potassium 4.3 3.5-5.1 Lvl) [facility]2022-07-19 09:29:00 Test Item Value Reference Range Interpretation Comments Chloride Lvl (test code = Chloride Lvl) 100 95-109 [facility]2022-07-19 09:29:00 Test Item Value Reference Range Interpretation Comments CO2 (test code = CO2) 28 24-32 [place] 506282-07-19 09:29:00 Test Item Value Reference Range Interpretation Comments Calcium Lvl (test code = Calcium Lvl) 9.4 8.5-10.5 [place] 506282-07-19 09:29:00 Test Item Value Reference Range Interpretation Comments Total Protein (test code = Total 6.6 6.4-8.4 Protein) [place] 506282-07-19 09:29:00 Test Item Value Reference Range Interpretation Comments Albumin Lvl (test code = Albumin Lvl) 3.0 3.5-5.0 [place]282-07-19 09:29:00 Test Item Value Reference Range Interpretation Comments ALT (test code = ALT) 92 See_Comment [Auto mated message] The system which ge nerated this result transmit swathi reference range : <=65. The reference range was not used to interpr et this result as deny l/abnormal. [facility] [employer] [id number] 09:29:00 Test Item Value Reference Range Interpretation Comments AST (test code = AST) 123 See_Comment [Auto mated message] The system which ge nerated this result transmit swathi reference range : <=37. The reference range was not used to interpr et this result as deny l/abnormal. [facility] [employer] [id number] 09:29:00 Test Item Value Reference Range Interpretation Comments Alk Phos (test code = Alk Phos) 272 39-136 [facility] [employer] [id number] 09:29:00 Test Item Value Reference Range Interpretation Comments Bili Total (test code = Bili Total) 0.9 0.2-1.3 [facility] [employer] [id number] 09:29:00 Test Item Value Reference Range Interpretation Comments AGAP (test code = AGAP) 10.3 10.0-20.0 [facility] [employer] [id number] 09:29:00 Test Item Value Reference Range Interpretation Comments B/C Ratio (test code = B/C Ratio) 6 1 6-25 [facility] [id number] 09:29:00 Test Item Value Reference Range Interpretation Comments Globulin (test code = Globulin) 3.6 2.7-4.2 [facility] [employer] [id number] 09:29:00 Test Item Value Reference Range Interpretation Comments A/G Ratio (test code = A/G Ratio) 0.8 1 0.7-1.6 [facility] [employer] [id number] 09:29:00 Test Item Value Reference Range Interpretation Comments eGFR (test code = eGFR) 12 [facility] [employer] [id number] 09:29:00 Test Item Value Reference Range Interpretation Comments Phosphorus (test code = Phosphorus) 4.3 2.5-4.5 [facility] CenterTaorsipBCQVYWNSDT5379-83-35 09:29:00 Test Item Value Reference Range Interpretation Comments WBC (test code = WBC) 4.7 3.7-10.4 [facility] CenterTzwhhmcYEDSJSPQDQ0040-31-56 09:29:00 Test Item Value Reference Range Interpretation Comments RBC (test code = RBC) 2.14 4.70-6.10 [facility]WryaizzTNFKERMSRH4207-88-03 09:29:00 Test Item Value Reference Range Interpretation Comments Hgb (test code = Hgb) 7.6 14.0-18.0 [facility] CampusXpztjmaZPZTNKIGMH4679-47-19 09:29:00 Test Item Value Reference Range Interpretation Comments Hct (test code = Hct) 22.8 42.0-54.0 [facility] CampusTnstddkJKRAHZTWZQ0605-60-43 09:29:00 Test Item Value Reference Range Interpretation Comments MCV (test code = MCV) 106.6 80.0-94.0 [facility] CampusDfueptxXXYBSVGJTK7280-72-16 09:29:00 Test Item Value Reference Range Interpretation Comments MCH (test code = MCH) 35.6 pg 27.0-31.0 [facility] CampusMyqnqubZREMSTSPTZ6622-13-37 09:29:00 Test Item Value Reference Range Interpretation Comments MCHC (test code = MCHC) 33.4 32.0-36.0 [facility] CampusOboiqhyWZLCDNDXXT5558-76-64 09:29:00 Test Item Value Reference Range Interpretation Comments RDW (test code = RDW) 24.3 11.5-14.5 [facility] CampusIcmodflMCCKYGBGUE8618-40-06 09:29:00 Test Item Value Reference Range Interpretation Comments Platelet (test code = Platelet) 148 133-450 [facility] CampusIoyrnelAQQDLBEXCM9474-33-08 09:29:00 Test Item Value Reference Range Interpretation Comments MPV (test code = MPV) 8.1 7.4-10.4 [facility] CampusKkwhssvHPIHOBXAJJ9850-32-24 09:29:00 Test Item Value Reference Range Interpretation Comments D-Dimer (test code = D-Dimer) 3.63 [facility] CampusXlglqrjHBYZOFDMGB2856-40-63 09:29:00 Test Item Value Reference Range Interpretation Comments Segs (test code = Segs) 74.8 45.0-75.0 [facility] CampusJxtljexOZOWVHAQXU8487-09-13 09:29:00 Test Item Value Reference Range Interpretation Comments Lymphocytes (test code = Lymphocytes) 15.5 20.0-40.0 [facility] CampusLytghacLGIDOFRBAI7544-81-93 09:29:00 Test Item Value Reference Range Interpretation Comments Monocytes (test code = Monocytes) 9.5 2.0-12.0 [place] [address]-07-19 09:29:00 Test Item Value Reference Range Interpretation Comments Basophils (test code = 0.2 See_Comment [Aut omated message] The Basophils) system which ge nerated this result tra nsmitted reference range : <=1.0. The reference r samantha was not used to int erpret this result as normal/abnormal . [facility] CampusQpfiamdZJHXBCXFJF2312-24-28 09:29:00 Test Item Value Reference Range Interpretation Comments Neutrophils # (test code = Neutrophils 3.5 1.5-8.1 #) [facility] CampusHamtpgmXEDDTFEUWL4208-30-03 09:29:00 Test Item Value Reference Range Interpretation Comments Lymphocytes # (test code = Lymphocytes 0.7 1.0-5.5 #) [facility] CampusMpgccjiCRJLENMRAQ6785-98-31 09:29:00 Test Item Value Reference Range Interpretation Comments Monocytes # (test code 0.4 See_Comment [Aut omated message] The = Monocytes #) system which generated this result tra nsmitted reference range : <=0.8. The reference r samantha was not used to int erpret this result as normal/abnormal . [facility] CampusJytpwnwXVEZYCDPGE1588-89-34 09:29:00 Test Item Value Reference Range Interpretation Comments Macrocyte (test code = 1+ *ABN*(12/16/21 Macrocyte) 4:29 AM) [facility]VtncwahJYJLOZRLOR9191-93-73 09:29:00 Test Item Value Reference Range Interpretation Comments C-REACTIVE PROTEIN (test code = 19.0 C-REACTIVE PROTEIN) [facility] CenterSneuukbMXCRDZRPBX3683-10-29 02:28:00 Test Item Value Reference Range Interpretation Comments Hep Bs Ag (test code Negative *NA*(12/15/21 = Hep Bs Ag) 9:28 PM) [facility] CenterQhaehixMGGGFHISLM0201-17-01 02:28:00 Test Item Value Reference Range Interpretation Comments Hep Bs Ag (test code Negative *NA*(12/15/21 = Hep Bs Ag) 9:28 PM) [facility] CenterSeetxsxGIQOLSGQVU5859-36-06 02:28:00 Test Item Value Reference Range Interpretation Comments Hep Bs Ag (test code Negative *NA*(12/15/21 = Hep Bs Ag) 9:28 PM) [facility] CenterBddrayvUIZZJKEOXV8033-92-34 02:28:00 Test Item Value Reference Range Interpretation Comments Hep Bs Ag (test code Negative *NA*(12/15/21 = Hep Bs Ag) 9:28 PM) [facility] RtyzkrgNGWTHHQPJC9207-70-67 02:28:00 Test Item Value Reference Range Interpretation Comments Hep Bs Ag (test code Negative *NA*(12/15/21 = Hep Bs Ag) 9:28 PM) [facility] OpszcigHYWQEHAHVY9034-91-15 02:28:00 Test Item Value Reference Range Interpretation Comments Hep Bs Ag (test code Negative *NA*(12/15/21 = Hep Bs Ag) 9:28 PM) [facility] EvgjaxjMBJTCFOBVQ1403-99-44 02:28:00 Test Item Value Reference Range Interpretation Comments Hep Bs Ag (test code Negative *NA*(12/15/21 = Hep Bs Ag) 9:28 PM) [facility] XexhgkmTUSEIKUALP1336-15-58 02:28:00 Test Item Value Reference Range Interpretation Comments Hep Bs Ag (test code Negative *NA*(12/15/21 = Hep Bs Ag) 9:28 PM) [facility] VhzcsboRUSUDPUHWR1073-41-65 02:28:00 Test Item Value Reference Range Interpretation Comments Hep Bs Ag (test code Negative *NA*(12/15/21 = Hep Bs Ag) 9:28 PM) [facility] KnuzvxuKRUOHRVSWU1533-87-61 02:28:00 Test Item Value Reference Range Interpretation Comments Hep Bs Ag (test code Negative *NA*(12/15/21 = Hep Bs Ag) 9:28 PM) [facility] ZvgjpfuGAXIFEXXTU5272-67-81 02:28:00 Test Item Value Reference Range Interpretation Comments Hep Bs Ag (test code Negative *NA*(12/15/21 = Hep Bs Ag) 9:28 PM) [facility] ObuyeuoIRBFQGEZHA5612-58-11 02:28:00 Test Item Value Reference Range Interpretation Comments Hep Bs Ag (test code Negative *NA*(12/15/21 = Hep Bs Ag) 9:28 PM) [facility] CenterannGram [facility]ain Pwkmqb2907-50-34 17:16:00 Test Item Value Reference Range Interpretation Comments Gram Stain Report Gram Stain Performed By: (test code = [facility] Stain Report) [facility] Respiratory w/Gram [id number] 17:16:00 Test Item Value Reference Range Interpretation Comments Culture: Respiratory Moderate Yeast Normal w/Gram Stain (test code Respiratory Lyndsay = Culture: Respiratory Isolated w/Gram Stain) [facility] Btlnob0185-67-54 17:16:00 Test Item Value Reference Range Interpretation Comments Gram Stain Report Gram Stain Performed By: (test code = [facility] Stain Report) [facility]: Respiratory w/Gram Pdwsi1846-05-72 17:16:00 Test Item Value Reference Range Interpretation Comments Culture: Respiratory Moderate Yeast Normal w/Gram Stain (test code Respiratory Lyndsay = Culture: Respiratory Isolated w/Gram Stain) [facility] Pxjibr8041-91-20 17:16:00 Test Item Value Reference Range Interpretation Comments Gram Stain Report Gram Stain Performed By: (test code = [facility] Stain Report) [facility] CenterannCulture: Respiratory w/Gram [id number] 17:16:00 Test Item Value Reference Range Interpretation Comments Culture: Respiratory Moderate Yeast Normal w/Gram Stain (test code Respiratory Lyndsay = Culture: Respiratory Isolated w/Gram Stain) [facility] [id number] 17:16:00 Test Item Value Reference Range Interpretation Comments Gram Stain Report Gram Stain Performed By: (test code = [facility] Stain Report) [facility]annCulture: Respiratory w/Gram [id number] 17:16:00 Test Item Value Reference Range Interpretation Comments Culture: Respiratory Moderate Yeast Normal w/Gram Stain (test code Respiratory Lyndsay = Culture: Respiratory Isolated w/Gram Stain) [facility] [id number] 17:16:00 Test Item Value Reference Range Interpretation Comments Gram Stain Report Gram Stain Performed By: (test code = [facility] Stain Report) [facility] CenterannCulture: Respiratory w/Gram [id number] 17:16:00 Test Item Value Reference Range Interpretation Comments Culture: Respiratory Moderate Yeast Normal w/Gram Stain (test code Respiratory Lyndsay = Culture: Respiratory Isolated w/Gram Stain) [facility] Mzypkz2785-54-83 17:16:00 Test Item Value Reference Range Interpretation Comments Gram Stain Report Gram Stain Performed By: (test code = [facility] Stain Report) [facility]annCulture: Respiratory w/Gram [id number] 17:16:00 Test Item Value Reference Range Interpretation Comments Culture: Respiratory Moderate Yeast Normal w/Gram Stain (test code Respiratory Lyndsay = Culture: Respiratory Isolated w/Gram Stain) [facility] [id number] 17:16:00 Test Item Value Reference Range Interpretation Comments Gram Stain Report Gram Stain Performed By: (test code = [facility] Stain Report) [facility]annCulture: Respiratory w/Gram [id number] 17:16:00 Test Item Value Reference Range Interpretation Comments Culture: Respiratory Moderate Yeast Normal w/Gram Stain (test code Respiratory Lyndsay = Culture: Respiratory Isolated w/Gram Stain) [facility] Gaykgm1156-15-76 17:16:00 Test Item Value Reference Range Interpretation Comments Gram Stain Report Gram Stain Performed By: (test code = Gram [facility] Stain Report) [facility]annCulture: Respiratory w/Gram [id number] 17:16:00 Test Item Value Reference Range Interpretation Comments Culture: Respiratory Moderate Yeast Normal w/Gram Stain (test code Respiratory Lyndsay = Culture: Respiratory Isolated w/Gram Stain) [facility] [id number] 17:16:00 Test Item Value Reference Range Interpretation Comments Gram Stain Report Gram Stain Performed By: (test code = [facility] Stain Report) [facility] Res[facility] w/Gram [id number] 17:16:00 Test Item Value Reference Range Interpretation Comments Culture: Respiratory Moderate Yeast Normal w/Gram Stain (test code Respiratory Lyndsay = Culture: Respiratory Isolated w/Gram Stain) [facility] [id number] 17:16:00 Test Item Value Reference Range Interpretation Comments Gram Stain Report Gram Stain Performed By: (test code = [facility] Stain Report) [facility]annCulture: Respiratory w/Gram Jqnkj4596-30-17 17:16:00 Test Item Value Reference Range Interpretation Comments Culture: Respiratory Moderate Yeast Normal w/Gram Stain (test code Respiratory Lyndsay = Culture: Respiratory Isolated w/Gram Stain) [facility] [id number] 17:16:00 Test Item Value Reference Range Interpretation Comments Gram Stain Report Gram Stain Performed By: (test code = [facility] Stain Report) [facility]annCulture: Respiratory w/Gram [id number] 17:16:00 Test Item Value Reference Range Interpretation Comments Culture: Respiratory Moderate Yeast Normal w/Gram Stain (test code Respiratory Lyndsay = Culture: Respiratory Isolated w/Gram Stain) [facility]annGram [facility]ain [id number] 17:16:00 Test Item Value Reference Range Interpretation Comments Gram Stain Report Gram Stain Performed By: (test code = [facility] Stain Report) [facility]annCulture: Respiratory w/Gram [id number] 17:16:00 Test Item Value Reference Range Interpretation Comments Culture: Respiratory Moderate Yeast Normal w/Gram Stain (test code Respiratory Lyndsay = Culture: Respiratory Isolated w/Gram Stain) [facility] CenterY[facility] [id number] 09:04:00 Test Item Value Reference Range Interpretation Comments Glucose Lvl (test code = Glucose Lvl) 59 70-99 [facility] [id number] 09:04:00 Test Item Value Reference Range Interpretation Comments BUN (test code = BUN) 41 7-22 [facility]2022-07-18 09:04:00 Test Item Value Reference Range Interpretation Comments Creatinine Lvl (test code = Creatinine 7.00 0.50-1.40 Lvl) [facility] CenterDispatch [id number] 09:04:00 Test Item Value Reference Range Interpretation Comments Sodium Lvl (test code = Sodium Lvl) 134 135-145 [facility] CenterDispatch [id number] 09:04:00 Test Item Value Reference Range Interpretation Comments Potassium Lvl (test code = Potassium 4.0 3.5-5.1 Lvl) [facility] CenterDispatch [id number] 09:04:00 Test Item Value Reference Range Interpretation Comments Chloride Lvl (test code = Chloride Lvl) 102 95-109 [facility] CenterDispatch [id number] 09:04:00 Test Item Value Reference Range Interpretation Comments CO2 (test code = CO2) 25 24-32 [facility] CenterY[facility] [id number] 09:04:00 Test Item Value Reference Range Interpretation Comments Calcium Lvl (test code = Calcium Lvl) 9.1 8.5-10.5 [facility] [id number] 09:04:00 Test Item Value Reference Range Interpretation Comments Total Protein (test code = Total 6.2 6.4-8.4 Protein) [facility] Center[facility] [id number] 09:04:00 Test Item Value Reference Range Interpretation Comments Albumin Lvl (test code = Albumin Lvl) 2.8 3.5-5.0 [place] 506282-07-18 09:04:00 Test Item Value Reference Range Interpretation Comments ALT (test code = ALT) 78 See_Comment [Auto mated message] The system which ge nerated this result transmit swathi reference range : <=65. The reference range was not used to interpr et this result as deny l/abnormal. [place] 506282-07-18 09:04:00 Test Item Value Reference Range Interpretation Comments AST (test code = AST) 117 See_Comment [Auto mated message] The system which ge nerated this result transmit swathi reference range : <=37. The reference range was not used to interpr et this result as deny l/abnormal. [place] 506282-07-18 09:04:00 Test Item Value Reference Range Interpretation Comments Alk Phos (test code = Alk Phos) 251 39-136 [facility] CenterY[facility] [id number] 09:04:00 Test Item Value Reference Range Interpretation Comments Bili Total (test code = Bili Total) 0.9 0.2-1.3 [place] [address]-07-18 09:04:00 Test Item Value Reference Range Interpretation Comments AGAP (test code = AGAP) 11.0 10.0-20.0 [place] 506282-07-18 09:04:00 Test Item Value Reference Range Interpretation Comments B/C Ratio (test code = B/C Ratio) 6 1 6-25 [facility] [id number] 09:04:00 Test Item Value Reference Range Interpretation Comments Globulin (test code = Globulin) 3.4 2.7-4.2 [facility] [id number] 09:04:00 Test Item Value Reference Range Interpretation Comments A/G Ratio (test code = A/G Ratio) 0.8 1 0.7-1.6 [facility] [id number] 09:04:00 Test Item Value Reference Range Interpretation Comments eGFR (test code = eGFR) 8 [place] 155092-07-18 09:04:00 Test Item Value Reference Range Interpretation Comments D-Dimer (test code = D-Dimer) 3.03 [place] 155092-07-18 09:04:00 Test Item Value Reference Range Interpretation Comments WBC (test code = WBC) 3.6 3.7-10.4 [place] 155092-07-18 09:04:00 Test Item Value Reference Range Interpretation Comments RBC (test code = RBC) 2.07 4.70-6.10 [place] 155092-07-18 09:04:00 Test Item Value Reference Range Interpretation Comments Hgb (test code = Hgb) 7.5 14.0-18.0 [place] [address]-07-18 09:04:00 Test Item Value Reference Range Interpretation Comments Hct (test code = Hct) 22.0 42.0-54.0 [place] 155092-07-18 09:04:00 Test Item Value Reference Range Interpretation Comments MCV (test code = MCV) 106.3 80.0-94.0 [place] 155092-07-18 09:04:00 Test Item Value Reference Range Interpretation Comments MCH (test code = MCH) 36.1 pg 27.0-31.0 [place] 155092-07-18 09:04:00 Test Item Value Reference Range Interpretation Comments MCHC (test code = MCHC) 33.9 32.0-36.0 [facility] CampusTsjflodMATTUNGKOI5996-90-69 09:04:00 Test Item Value Reference Range Interpretation Comments RDW (test code = RDW) 23.9 11.5-14.5 [place] 155092-07-18 09:04:00 Test Item Value Reference Range Interpretation Comments Platelet (test code = Platelet) 133 133-450 [facility] CampusVqmelktWYJOUOUNCI1155-03-49 09:04:00 Test Item Value Reference Range Interpretation Comments MPV (test code = MPV) 8.1 7.4-10.4 [place] 155092-07-18 09:04:00 Test Item Value Reference Range Interpretation Comments Segs (test code = Segs) 60.8 45.0-75.0 [place] 155092-07-18 09:04:00 Test Item Value Reference Range Interpretation Comments Lymphocytes (test code = Lymphocytes) 22.3 20.0-40.0 [place] 155092-07-18 09:04:00 Test Item Value Reference Range Interpretation Comments Monocytes (test code = Monocytes) 13.9 2.0-12.0 [facility] CampusVsuplzjBQXEIHROVP4485-38-85 09:04:00 Test Item Value Reference Range Interpretation Comments Eosinophils (test code = 2.6 See_Comment [A utomated message] The Eosinophils) system which ge nerated this result tra nsmitted reference range : <=4.0. The reference r samantha was not used to int erpret this result as normal/abnormal . [facility] CampusMwchxmqNMFSSNYIWM0187-92-29 09:04:00 Test Item Value Reference Range Interpretation Comments Basophils (test code = 0.4 See_Comment [Aut omated message] The Basophils) system which ge nerated this result tra nsmitted reference range : <=1.0. The reference r samantha was not used to int erpret this result as normal/abnormal . [facility] CampusDuobbgmHYLRHDKPEE0062-10-74 09:04:00 Test Item Value Reference Range Interpretation Comments Neutrophils # (test code = Neutrophils 2.2 1.5-8.1 #) [facility] CampusFnlggkaJRJQINNXRP9237-86-73 09:04:00 Test Item Value Reference Range Interpretation Comments Lymphocytes # (test code = Lymphocytes 0.8 1.0-5.5 #) [facility] CampusEslwxysGJUAIGKDQZ1111-64-60 09:04:00 Test Item Value Reference Range Interpretation Comments Monocytes # (test code 0.5 See_Comment [Aut omated message] The = Monocytes #) system which generated this result tra nsmitted reference range : <=0.8. The reference r samantha was not used to int erpret this result as normal/abnormal . [facility] CampusZbkkxrvFJYFZCHQRE7726-09-65 09:04:00 Test Item Value Reference Range Interpretation Comments Eosinophils # (test code 0.1 See_Comment [A utomated message] The = Eosinophils #) system whic h generated this result tra nsmitted reference range : <=0.5. The reference r samantha was not used to int erpret this result as normal/abnormal . [facility] CampusYirkwgyVGEACABILC5449-00-41 09:04:00 Test Item Value Reference Range Interpretation Comments Macrocyte (test code = 1+ *ABN*(12/15/21 Macrocyte) 4:04 AM) [facility] CenterJugtqsyGQGZTTKTXN0485-06-51 09:04:00 Test Item Value Reference Range Interpretation Comments C-REACTIVE PROTEIN (test code = 25.1 C-REACTIVE PROTEIN) [facility] CenterQnfnmyhGCDBXTXRZA4040-47-30 09:04:00 Test Item Value Reference Range Interpretation Comments Vanco Lvl (test code = Vanco Lvl) 15.2 [place] 506282-07-18 09:04:00 Test Item Value Reference Range Interpretation Comments Glucose Lvl (test code = Glucose Lvl) 59 70-99 [place] 506282-07-18 09:04:00 Test Item Value Reference Range Interpretation Comments BUN (test code = BUN) 41 7-22 [place] 506282-07-18 09:04:00 Test Item Value Reference Range Interpretation Comments Creatinine Lvl (test code = Creatinine 7.00 0.50-1.40 Lvl) [place] 506282-07-18 09:04:00 Test Item Value Reference Range Interpretation Comments Sodium Lvl (test code = Sodium Lvl) 134 135-145 [place] 506282-07-18 09:04:00 Test Item Value Reference Range Interpretation Comments Potassium Lvl (test code = Potassium 4.0 3.5-5.1 Lvl) [place] 506282-07-18 09:04:00 Test Item Value Reference Range Interpretation Comments Chloride Lvl (test code = Chloride Lvl) 102 95-109 [place] 506282-07-18 09:04:00 Test Item Value Reference Range Interpretation Comments CO2 (test code = CO2) 25 24-32 [place] 506282-07-18 09:04:00 Test Item Value Reference Range Interpretation Comments Calcium Lvl (test code = Calcium Lvl) 9.1 8.5-10.5 [place] 506282-07-18 09:04:00 Test Item Value Reference Range Interpretation Comments Total Protein (test code = Total 6.2 6.4-8.4 Protein) [place] 506282-07-18 09:04:00 Test Item Value Reference Range Interpretation Comments Albumin Lvl (test code = Albumin Lvl) 2.8 3.5-5.0 [place] 506282-07-18 09:04:00 Test Item Value Reference Range Interpretation Comments ALT (test code = ALT) 78 See_Comment [Auto mated message] The system which ge nerated this result transmit swathi reference range : <=65. The reference range was not used to interpr et this result as deny l/abnormal. [facility] [employer] [id number] 09:04:00 Test Item Value Reference Range Interpretation Comments AST (test code = AST) 117 See_Comment [Auto mated message] The system which ge nerated this result transmit swathi reference range : <=37. The reference range was not used to interpr et this result as deny l/abnormal. [facility] [employer] [id number] 09:04:00 Test Item Value Reference Range Interpretation Comments Alk Phos (test code = Alk Phos) 251 39-136 [facility] [employer] [id number] 09:04:00 Test Item Value Reference Range Interpretation Comments Bili Total (test code = Bili Total) 0.9 0.2-1.3 [facility] [id number] 09:04:00 Test Item Value Reference Range Interpretation Comments AGAP (test code = AGAP) 11.0 10.0-20.0 [facility] [id number] 09:04:00 Test Item Value Reference Range Interpretation Comments B/C Ratio (test code = B/C Ratio) 6 1 6-25 [facility]Dispatch [id number] 09:04:00 Test Item Value Reference Range Interpretation Comments Globulin (test code = Globulin) 3.4 2.7-4.2 [facility] [employer] [id number] 09:04:00 Test Item Value Reference Range Interpretation Comments A/G Ratio (test code = A/G Ratio) 0.8 1 0.7-1.6 [facility] [id number] 09:04:00 Test Item Value Reference Range Interpretation Comments eGFR (test code = eGFR) 8 [facility] CenterFzyelydJQTFYKEPXG1752-66-87 09:04:00 Test Item Value Reference Range Interpretation Comments D-Dimer (test code = D-Dimer) 3.03 [facility] CenterGdyejzcYCUBGXRHSW2493-98-93 09:04:00 Test Item Value Reference Range Interpretation Comments WBC (test code = WBC) 3.6 3.7-10.4 [facility] CenterPqyoufsKILZEJHXWQ5597-21-79 09:04:00 Test Item Value Reference Range Interpretation Comments RBC (test code = RBC) 2.07 4.70-6.10 [place] 155092-07-18 09:04:00 Test Item Value Reference Range Interpretation Comments Hgb (test code = Hgb) 7.5 14.0-18.0 [place] 155092-07-18 09:04:00 Test Item Value Reference Range Interpretation Comments Hct (test code = Hct) 22.0 42.0-54.0 [place] 155092-07-18 09:04:00 Test Item Value Reference Range Interpretation Comments MCV (test code = MCV) 106.3 80.0-94.0 [place] 155092-07-18 09:04:00 Test Item Value Reference Range Interpretation Comments MCH (test code = MCH) 36.1 pg 27.0-31.0 [place] 155092-07-18 09:04:00 Test Item Value Reference Range Interpretation Comments MCHC (test code = MCHC) 33.9 32.0-36.0 [place] 155092-07-18 09:04:00 Test Item Value Reference Range Interpretation Comments RDW (test code = RDW) 23.9 11.5-14.5 [place] 155092-07-18 09:04:00 Test Item Value Reference Range Interpretation Comments Platelet (test code = Platelet) 133 133-450 [facility]NsjabsqMTQPTHCDMC6570-70-15 09:04:00 Test Item Value Reference Range Interpretation Comments MPV (test code = MPV) 8.1 7.4-10.4 [place] 155092-07-18 09:04:00 Test Item Value Reference Range Interpretation Comments Segs (test code = Segs) 60.8 45.0-75.0 [place] 155092-07-18 09:04:00 Test Item Value Reference Range Interpretation Comments Lymphocytes (test code = Lymphocytes) 22.3 20.0-40.0 [place] [address]-07-18 09:04:00 Test Item Value Reference Range Interpretation Comments Monocytes (test code = Monocytes) 13.9 2.0-12.0 [place] 155092-07-18 09:04:00 Test Item Value Reference Range Interpretation Comments Eosinophils (test code = 2.6 See_Comment [A utomated message] The Eosinophils) system which ge nerated this result tra nsmitted reference range : <=4.0. The reference r samantha was not used to int erpret this result as normal/abnormal . [facility] CampusTvleyvnVZQSYHZLKV6249-53-07 09:04:00 Test Item Value Reference Range Interpretation Comments Basophils (test code = 0.4 See_Comment [Aut omated message] The Basophils) system which ge nerated this result tra nsmitted reference range : <=1.0. The reference r samantha was not used to int erpret this result as normal/abnormal . [facility] CampusWxgxojpNCVRVGIYAJ6566-78-81 09:04:00 Test Item Value Reference Range Interpretation Comments Neutrophils # (test code = Neutrophils 2.2 1.5-8.1 #) [facility] CampusGywgvyiHABDFVORMU2336-73-84 09:04:00 Test Item Value Reference Range Interpretation Comments Lymphocytes # (test code = Lymphocytes 0.8 1.0-5.5 #) [facility] CampusBoqvjnuWZXMREYWEJ0924-97-87 09:04:00 Test Item Value Reference Range Interpretation Comments Monocytes # (test code 0.5 See_Comment [Aut omated message] The = Monocytes #) system which generated this result tra nsmitted reference range : <=0.8. The reference r samantha was not used to int erpret this result as normal/abnormal . [facility] CampusIhankffZLHFDUJIMR5073-65-22 09:04:00 Test Item Value Reference Range Interpretation Comments Eosinophils # (test code 0.1 See_Comment [A utomated message] The = Eosinophils #) system whic h generated this result tra nsmitted reference range : <=0.5. The reference r samantha was not used to int erpret this result as normal/abnormal . [facility]ONDJG[facility]TI6128[facility]17-30 09:04:00 Test Item Value Reference Range Interpretation Comments Macrocyte (test code = 1+ *ABN*(12/15/21 Macrocyte) 4:04 AM) [facility]MdbmzweQDQAALFDSH8084-20-65 09:04:00 Test Item Value Reference Range Interpretation Comments C-REACTIVE PROTEIN (test code = 25.1 C-REACTIVE PROTEIN) [facility] CenterYuaqupoVHBMMCUTMW5856-78-34 09:04:00 Test Item Value Reference Range Interpretation Comments Vanco Lvl (test code = Vanco Lvl) 15.2 [place] 506282-07-18 09:04:00 Test Item Value Reference Range Interpretation Comments Glucose Lvl (test code = Glucose Lvl) 59 70-99 [place] 506282-07-18 09:04:00 Test Item Value Reference Range Interpretation Comments BUN (test code = BUN) 41 7-22 [place] 506282-07-18 09:04:00 Test Item Value Reference Range Interpretation Comments Creatinine Lvl (test code = Creatinine 7.00 0.50-1.40 Lvl) [place] 506282-07-18 09:04:00 Test Item Value Reference Range Interpretation Comments Sodium Lvl (test code = Sodium Lvl) 134 135-145 [place] 506282-07-18 09:04:00 Test Item Value Reference Range Interpretation Comments Potassium Lvl (test code = Potassium 4.0 3.5-5.1 Lvl) [place] 506282-07-18 09:04:00 Test Item Value Reference Range Interpretation Comments Chloride Lvl (test code = Chloride Lvl) 102 95-109 [place] 506282-07-18 09:04:00 Test Item Value Reference Range Interpretation Comments CO2 (test code = CO2) 25 24-32 [place] 506282-07-18 09:04:00 Test Item Value Reference Range Interpretation Comments Calcium Lvl (test code = Calcium Lvl) 9.1 8.5-10.5 [place] 506282-07-18 09:04:00 Test Item Value Reference Range Interpretation Comments Total Protein (test code = Total 6.2 6.4-8.4 Protein) [place] 506282-07-18 09:04:00 Test Item Value Reference Range Interpretation Comments Albumin Lvl (test code = Albumin Lvl) 2.8 3.5-5.0 [place] 506282-07-18 09:04:00 Test Item Value Reference Range Interpretation Comments ALT (test code = ALT) 78 See_Comment [Auto mated message] The system which ge nerated this result transmit swathi reference range : <=65. The reference range was not used to interpr et this result as deny l/abnormal. [place] 506282-07-18 09:04:00 Test Item Value Reference Range Interpretation Comments AST (test code = AST) 117 See_Comment [Auto mated message] The system which ge nerated this result transmit swathi reference range : <=37. The reference range was not used to interpr et this result as deny l/abnormal. [facility]2022-07-18 09:04:00 Test Item Value Reference Range Interpretation Comments Alk Phos (test code = Alk Phos) 251 39-136 [place] 506282-07-18 09:04:00 Test Item Value Reference Range Interpretation Comments Bili Total (test code = Bili Total) 0.9 0.2-1.3 [place] 506282-07-18 09:04:00 Test Item Value Reference Range Interpretation Comments AGAP (test code = AGAP) 11.0 10.0-20.0 [place] 506282-07-18 09:04:00 Test Item Value Reference Range Interpretation Comments B/C Ratio (test code = B/C Ratio) 6 1 6-25 [place] 506282-07-18 09:04:00 Test Item Value Reference Range Interpretation Comments Globulin (test code = Globulin) 3.4 2.7-4.2 [place] 506282-07-18 09:04:00 Test Item Value Reference Range Interpretation Comments Glucose Lvl (test code = Glucose Lvl) 59 70-99 [facility]2022-07-18 09:04:00 Test Item Value Reference Range Interpretation Comments BUN (test code = BUN) 41 7-22 [place] 506282-07-18 09:04:00 Test Item Value Reference Range Interpretation Comments Creatinine Lvl (test code = Creatinine 7.00 0.50-1.40 Lvl) [place] 506282-07-18 09:04:00 Test Item Value Reference Range Interpretation Comments Sodium Lvl (test code = Sodium Lvl) 134 135-145 [place] 506282-07-18 09:04:00 Test Item Value Reference Range Interpretation Comments Potassium Lvl (test code = Potassium 4.0 3.5-5.1 Lvl) [place] 506282-07-18 09:04:00 Test Item Value Reference Range Interpretation Comments Chloride Lvl (test code = Chloride Lvl) 102 95-109 [place] 506282-07-18 09:04:00 Test Item Value Reference Range Interpretation Comments CO2 (test code = CO2) 25 24-32 [place] [address]-07-18 09:04:00 Test Item Value Reference Range Interpretation Comments Calcium Lvl (test code = Calcium Lvl) 9.1 8.5-10.5 [place] 506282-07-18 09:04:00 Test Item Value Reference Range Interpretation Comments Total Protein (test code = Total 6.2 6.4-8.4 Protein) [place] 506282-07-18 09:04:00 Test Item Value Reference Range Interpretation Comments A/G Ratio (test code = A/G Ratio) 0.8 1 0.7-1.6 [place] [address]-07-18 09:04:00 Test Item Value Reference Range Interpretation Comments Albumin Lvl (test code = Albumin Lvl) 2.8 3.5-5.0 [place] 506282-07-18 09:04:00 Test Item Value Reference Range Interpretation Comments ALT (test code = ALT) 78 See_Comment [Auto mated message] The system which ge nerated this result transmit swathi reference range : <=65. The reference range was not used to interpr et this result as deny l/abnormal. [place] [address]42-07-18 09:04:00 Test Item Value Reference Range Interpretation Comments AST (test code = AST) 117 See_Comment [Auto mated message] The system which ge nerated this result transmit swathi reference range : <=37. The reference range was not used to interpr et this result as deny l/abnormal. [place] [address]-07-18 09:04:00 Test Item Value Reference Range Interpretation Comments Alk Phos (test code = Alk Phos) 251 39-136 [place] [address]-07-18 09:04:00 Test Item Value Reference Range Interpretation Comments Bili Total (test code = Bili Total) 0.9 0.2-1.3 [place] 506282-07-18 09:04:00 Test Item Value Reference Range Interpretation Comments AGAP (test code = AGAP) 11.0 10.0-20.0 [facility] AQONI2209-03-59 09:04:00 Test Item Value Reference Range Interpretation Comments B/C Ratio (test code = B/C Ratio) 6 1 6-25 [place] 506282-07-18 09:04:00 Test Item Value Reference Range Interpretation Comments Globulin (test code = Globulin) 3.4 2.7-4.2 [place] 506282-07-18 09:04:00 Test Item Value Reference Range Interpretation Comments A/G Ratio (test code = A/G Ratio) 0.8 1 0.7-1.6 [place] [address]42-07-18 09:04:00 Test Item Value Reference Range Interpretation Comments eGFR (test code = eGFR) 8 [facility]2022-07-18 09:04:00 Test Item Value Reference Range Interpretation Comments eGFR (test code = eGFR) 8 [facility] CampusBzlxqzgGPEGKHYJGN8693-90-44 09:04:00 Test Item Value Reference Range Interpretation Comments D-Dimer (test code = D-Dimer) 3.03 [place] 155092-07-18 09:04:00 Test Item Value Reference Range Interpretation Comments WBC (test code = WBC) 3.6 3.7-10.4 [place] 155092-07-18 09:04:00 Test Item Value Reference Range Interpretation Comments RBC (test code = RBC) 2.07 4.70-6.10 [place] 155092-07-18 09:04:00 Test Item Value Reference Range Interpretation Comments Hgb (test code = Hgb) 7.5 14.0-18.0 [place] 155092-07-18 09:04:00 Test Item Value Reference Range Interpretation Comments Hct (test code = Hct) 22.0 42.0-54.0 [place] 155092-07-18 09:04:00 Test Item Value Reference Range Interpretation Comments MCV (test code = MCV) 106.3 80.0-94.0 [place] 155092-07-18 09:04:00 Test Item Value Reference Range Interpretation Comments MCH (test code = MCH) 36.1 pg 27.0-31.0 [place] 155092-07-18 09:04:00 Test Item Value Reference Range Interpretation Comments MCHC (test code = MCHC) 33.9 32.0-36.0 [place] 155092-07-18 09:04:00 Test Item Value Reference Range Interpretation Comments RDW (test code = RDW) 23.9 11.5-14.5 [place] 155092-07-18 09:04:00 Test Item Value Reference Range Interpretation Comments Platelet (test code = Platelet) 133 133-450 [place] 155092-07-18 09:04:00 Test Item Value Reference Range Interpretation Comments D-Dimer (test code = D-Dimer) 3.03 [place] 155092-07-18 09:04:00 Test Item Value Reference Range Interpretation Comments MPV (test code = MPV) 8.1 7.4-10.4 [place] 155092-07-18 09:04:00 Test Item Value Reference Range Interpretation Comments Segs (test code = Segs) 60.8 45.0-75.0 [place] 155092-07-18 09:04:00 Test Item Value Reference Range Interpretation Comments Lymphocytes (test code = Lymphocytes) 22.3 20.0-40.0 [place] 155092-07-18 09:04:00 Test Item Value Reference Range Interpretation Comments Monocytes (test code = Monocytes) 13.9 2.0-12.0 [place] 155092-07-18 09:04:00 Test Item Value Reference Range Interpretation Comments Eosinophils (test code = 2.6 See_Comment [A utomated message] The Eosinophils) system which ge nerated this result tra nsmitted reference range : <=4.0. The reference r samantha was not used to int erpret this result as normal/abnormal . [place] 155092-07-18 09:04:00 Test Item Value Reference Range Interpretation Comments Basophils (test code = 0.4 See_Comment [Aut omated message] The Basophils) system which ge nerated this result tra nsmitted reference range : <=1.0. The reference r samantha was not used to int erpret this result as normal/abnormal . [facility] CampusZuhywgbDMOXFYXAVO8282-68-05 09:04:00 Test Item Value Reference Range Interpretation Comments Neutrophils # (test code = Neutrophils 2.2 1.5-8.1 #) [facility] CampusRyhgwjsOSXYQCUAGL5741-02-32 09:04:00 Test Item Value Reference Range Interpretation Comments Lymphocytes # (test code = Lymphocytes 0.8 1.0-5.5 #) [facility] CampusYtdqauoAXWRMZVZSO4867-51-56 09:04:00 Test Item Value Reference Range Interpretation Comments Monocytes # (test code 0.5 See_Comment [Aut omated message] The = Monocytes #) system which generated this result tra nsmitted reference range : <=0.8. The reference r samantha was not used to int erpret this result as normal/abnormal . [facility] CampusUebldiyRJRUYEPHJA6241-80-60 09:04:00 Test Item Value Reference Range Interpretation Comments Eosinophils # (test code 0.1 See_Comment [A utomated message] The = Eosinophils #) system whic h generated this result tra nsmitted reference range : <=0.5. The reference r samantha was not used to int erpret this result as normal/abnormal . [facility] CampusAnxripeDPXYJEMZQH4490-31-87 09:04:00 Test Item Value Reference Range Interpretation Comments WBC (test code = WBC) 3.6 3.7-10.4 [facility] CampusFmaoiwiOPWZZQETZW4269-79-11 09:04:00 Test Item Value Reference Range Interpretation Comments Macrocyte (test code = 1+ *ABN*(12/15/21 Macrocyte) 4:04 AM) [facility] CenterOwnvfneNPUSOPOPSR3032-05-52 09:04:00 Test Item Value Reference Range Interpretation Comments C-REACTIVE PROTEIN (test code = 25.1 C-REACTIVE PROTEIN) [facility] CenterJzxyaqoFTTLCDHMWU9491-27-84 09:04:00 Test Item Value Reference Range Interpretation Comments Vanco Lvl (test code = Vanco Lvl) 15.2 [facility] CenterElyewnmYNOIWNSFKR3525-95-23 09:04:00 Test Item Value Reference Range Interpretation Comments RBC (test code = RBC) 2.07 4.70-6.10 [facility] CampusPzfwpbsEPYBCAVNQH0065-75-59 09:04:00 Test Item Value Reference Range Interpretation Comments Hgb (test code = Hgb) 7.5 14.0-18.0 [facility] CampusCcbsrsyYUCUKVDWDB9164-57-40 09:04:00 Test Item Value Reference Range Interpretation Comments Hct (test code = Hct) 22.0 42.0-54.0 [facility] CenterCnbfvvaMPNRYPINQV5193-59-33 09:04:00 Test Item Value Reference Range Interpretation Comments MCV (test code = MCV) 106.3 80.0-94.0 [facility] CampusVdidzkuBBIQZOUUBH4792-52-34 09:04:00 Test Item Value Reference Range Interpretation Comments MCH (test code = MCH) 36.1 pg 27.0-31.0 [facility] CampusMvtzmcnBRDHNJBGJI9445-36-41 09:04:00 Test Item Value Reference Range Interpretation Comments MCHC (test code = MCHC) 33.9 32.0-36.0 [facility] CampusWcqwbctJAJJPTKRVG5892-84-27 09:04:00 Test Item Value Reference Range Interpretation Comments RDW (test code = RDW) 23.9 11.5-14.5 [place] 155092-07-18 09:04:00 Test Item Value Reference Range Interpretation Comments Platelet (test code = Platelet) 133 133-450 [facility] CampusPzwugfyVTNVLJYZBN4076-65-16 09:04:00 Test Item Value Reference Range Interpretation Comments MPV (test code = MPV) 8.1 7.4-10.4 [facility] CampusKnouqerQZELCHHHKT3951-56-68 09:04:00 Test Item Value Reference Range Interpretation Comments Segs (test code = Segs) 60.8 45.0-75.0 [facility] CampusCvtksryXWKPTLKEEL0764-69-17 09:04:00 Test Item Value Reference Range Interpretation Comments Lymphocytes (test code = Lymphocytes) 22.3 20.0-40.0 [facility] CampusZwqnworBSKDTDWJTT8138-71-23 09:04:00 Test Item Value Reference Range Interpretation Comments Monocytes (test code = Monocytes) 13.9 2.0-12.0 [place] 155092-07-18 09:04:00 Test Item Value Reference Range Interpretation Comments Eosinophils (test code = 2.6 See_Comment [A utomated message] The Eosinophils) system which ge nerated this result tra nsmitted reference range : <=4.0. The reference r samantha was not used to int erpret this result as normal/abnormal . [facility] CampusUfunedcXKGYBKNBHC3807-28-46 09:04:00 Test Item Value Reference Range Interpretation Comments Basophils (test code = 0.4 See_Comment [Aut omated message] The Basophils) system which ge nerated this result tra nsmitted reference range : <=1.0. The reference r samantha was not used to int erpret this result as normal/abnormal . [place] [address]-07-18 09:04:00 Test Item Value Reference Range Interpretation Comments Neutrophils # (test code = Neutrophils 2.2 1.5-8.1 #) [facility] CampusCdzbgsaRIIOHNKQWP1438-85-39 09:04:00 Test Item Value Reference Range Interpretation Comments Lymphocytes # (test code = Lymphocytes 0.8 1.0-5.5 #) [facility] CampusTaxventIMQUESDACF7788-82-54 09:04:00 Test Item Value Reference Range Interpretation Comments Monocytes # (test code 0.5 See_Comment [Aut omated message] The = Monocytes #) system which generated this result tra nsmitted reference range : <=0.8. The reference r samantha was not used to int erpret this result as normal/abnormal . [facility] CampusReuhgfaMQLTUVYJHT9950-15-37 09:04:00 Test Item Value Reference Range Interpretation Comments Eosinophils # (test code 0.1 See_Comment [A utomated message] The = Eosinophils #) system whic h generated this result tra nsmitted reference range : <=0.5. The reference r samantha was not used to int erpret this result as normal/abnormal . [facility] CenterAzpamazASOZVUQRKF7340-83-17 09:04:00 Test Item Value Reference Range Interpretation Comments Macrocyte (test code = 1+ *ABN*(12/15/21 Macrocyte) 4:04 AM) [facility] CenterHodjdoyPAZXJFIBBJ7234-52-58 09:04:00 Test Item Value Reference Range Interpretation Comments C-REACTIVE PROTEIN (test code = 25.1 C-REACTIVE PROTEIN) [facility] CenterLgxukfjUABWXGOICZ8814-98-69 09:04:00 Test Item Value Reference Range Interpretation Comments Vanco Lvl (test code = Vanco Lvl) 15.2 [facility] CenterY[facility] XJPHJ7791-19-77 09:04:00 Test Item Value Reference Range Interpretation Comments Glucose Lvl (test code = Glucose Lvl) 59 70-99 [facility]2022-07-18 09:04:00 Test Item Value Reference Range Interpretation Comments BUN (test code = BUN) 41 - [place] 506282-07-18 09:04:00 Test Item Value Reference Range Interpretation Comments Creatinine Lvl (test code = Creatinine 7.00 0.50-1.40 Lvl) [facility]2022-07-18 09:04:00 Test Item Value Reference Range Interpretation Comments Sodium Lvl (test code = Sodium Lvl) 134 135-145 [place] 506282-07-18 09:04:00 Test Item Value Reference Range Interpretation Comments Potassium Lvl (test code = Potassium 4.0 3.5-5.1 Lvl) [place] 506282-07-18 09:04:00 Test Item Value Reference Range Interpretation Comments Chloride Lvl (test code = Chloride Lvl) 102 95-109 [place] 506282-07-18 09:04:00 Test Item Value Reference Range Interpretation Comments CO2 (test code = CO2) 25 24-32 [place] 506282-07-18 09:04:00 Test Item Value Reference Range Interpretation Comments Calcium Lvl (test code = Calcium Lvl) 9.1 8.5-10.5 [place] 506282-07-18 09:04:00 Test Item Value Reference Range Interpretation Comments Total Protein (test code = Total 6.2 6.4-8.4 Protein) [place] 506282-07-18 09:04:00 Test Item Value Reference Range Interpretation Comments Albumin Lvl (test code = Albumin Lvl) 2.8 3.5-5.0 [place] 506282-07-18 09:04:00 Test Item Value Reference Range Interpretation Comments ALT (test code = ALT) 78 See_Comment [Auto mated message] The system which ge nerated this result transmit swathi reference range : <=65. The reference range was not used to interpr et this result as deny l/abnormal. [place] 506282-07-18 09:04:00 Test Item Value Reference Range Interpretation Comments AST (test code = AST) 117 See_Comment [Auto mated message] The system which ge nerated this result transmit swathi reference range : <=37. The reference range was not used to interpr et this result as deny l/abnormal. [place] 506282-07-18 09:04:00 Test Item Value Reference Range Interpretation Comments Alk Phos (test code = Alk Phos) 251 39-136 [place] 506282-07-18 09:04:00 Test Item Value Reference Range Interpretation Comments Bili Total (test code = Bili Total) 0.9 0.2-1.3 [place] 506282-07-18 09:04:00 Test Item Value Reference Range Interpretation Comments AGAP (test code = AGAP) 11.0 10.0-20.0 [place] 506282-07-18 09:04:00 Test Item Value Reference Range Interpretation Comments B/C Ratio (test code = B/C Ratio) 6 1 6-25 [place] [address]42-07-18 09:04:00 Test Item Value Reference Range Interpretation Comments Globulin (test code = Globulin) 3.4 2.7-4.2 [place] 506282-07-18 09:04:00 Test Item Value Reference Range Interpretation Comments A/G Ratio (test code = A/G Ratio) 0.8 1 0.7-1.6 [place] 506282-07-18 09:04:00 Test Item Value Reference Range Interpretation Comments eGFR (test code = eGFR) 8 [place] 155092-07-18 09:04:00 Test Item Value Reference Range Interpretation Comments D-Dimer (test code = D-Dimer) 3.03 [place] 155092-07-18 09:04:00 Test Item Value Reference Range Interpretation Comments WBC (test code = WBC) 3.6 3.7-10.4 [place] 155092-07-18 09:04:00 Test Item Value Reference Range Interpretation Comments RBC (test code = RBC) 2.07 4.70-6.10 [place] 155092-07-18 09:04:00 Test Item Value Reference Range Interpretation Comments Hgb (test code = Hgb) 7.5 14.0-18.0 [place] 155092-07-18 09:04:00 Test Item Value Reference Range Interpretation Comments Hct (test code = Hct) 22.0 42.0-54.0 [place] 155092-07-18 09:04:00 Test Item Value Reference Range Interpretation Comments MCV (test code = MCV) 106.3 80.0-94.0 [place] [address]-07-18 09:04:00 Test Item Value Reference Range Interpretation Comments MCH (test code = MCH) 36.1 pg 27.0-31.0 [place] 155092-07-18 09:04:00 Test Item Value Reference Range Interpretation Comments MCHC (test code = MCHC) 33.9 32.0-36.0 [place] [address]-07-18 09:04:00 Test Item Value Reference Range Interpretation Comments RDW (test code = RDW) 23.9 11.5-14.5 [place] 155092-07-18 09:04:00 Test Item Value Reference Range Interpretation Comments Platelet (test code = Platelet) 133 133-450 [place] 155092-07-18 09:04:00 Test Item Value Reference Range Interpretation Comments MPV (test code = MPV) 8.1 7.4-10.4 [place] [address]-07-18 09:04:00 Test Item Value Reference Range Interpretation Comments Segs (test code = Segs) 60.8 45.0-75.0 [place] [address]-07-18 09:04:00 Test Item Value Reference Range Interpretation Comments Lymphocytes (test code = Lymphocytes) 22.3 20.0-40.0 [place] 155092-07-18 09:04:00 Test Item Value Reference Range Interpretation Comments Monocytes (test code = Monocytes) 13.9 2.0-12.0 [place] 155092-07-18 09:04:00 Test Item Value Reference Range Interpretation Comments Eosinophils (test code = 2.6 See_Comment [A utomated message] The Eosinophils) system which ge nerated this result tra nsmitted reference range : <=4.0. The reference r samantha was not used to int erpret this result as normal/abnormal . [place] 155092-07-18 09:04:00 Test Item Value Reference Range Interpretation Comments Basophils (test code = 0.4 See_Comment [Aut omated message] The Basophils) system which ge nerated this result tra nsmitted reference range : <=1.0. The reference r samantha was not used to int erpret this result as normal/abnormal . [place] 155092-07-18 09:04:00 Test Item Value Reference Range Interpretation Comments Neutrophils # (test code = Neutrophils 2.2 1.5-8.1 #) [place] 155092-07-18 09:04:00 Test Item Value Reference Range Interpretation Comments Lymphocytes # (test code = Lymphocytes 0.8 1.0-5.5 #) [facility]JbktwdySCSNEMOZAU1122-[facility] 09:04:00 Test Item Value Reference Range Interpretation Comments Monocytes # (test code 0.5 See_Comment [Aut omated message] The = Monocytes #) system which generated this result tra nsmitted reference range : <=0.8. The reference r samantha was not used to int erpret this result as normal/abnormal . [facility] CampusOsdqqcuBTIEXLDQBE1469-33-77 09:04:00 Test Item Value Reference Range Interpretation Comments Eosinophils # (test code 0.1 See_Comment [A utomated message] The = Eosinophils #) system whic h generated this result tra nsmitted reference range : <=0.5. The reference r samantha was not used to int erpret this result as normal/abnormal . [facility] CampusYsycocdBWCVEYCBUO4560-94-92 09:04:00 Test Item Value Reference Range Interpretation Comments Macrocyte (test code = 1+ *ABN*(12/15/21 Macrocyte) 4:04 AM) [facility] CenterKgcqcpyGRWIKUGGAC4242-70-93 09:04:00 Test Item Value Reference Range Interpretation Comments C-REACTIVE PROTEIN (test code = 25.1 C-REACTIVE PROTEIN) [facility] CenterXnzaumbBAXJRLBIEG7543-35-76 09:04:00 Test Item Value Reference Range Interpretation Comments Vanco Lvl (test code = Vanco Lvl) 15.2 [facility] [id number] 09:04:00 Test Item Value Reference Range Interpretation Comments Glucose Lvl (test code = Glucose Lvl) 59 70-99 [facility] [id number] 09:04:00 Test Item Value Reference Range Interpretation Comments BUN (test code = BUN) 41 7-22 [facility] [id number] 09:04:00 Test Item Value Reference Range Interpretation Comments Creatinine Lvl (test code = Creatinine 7.00 0.50-1.40 Lvl) [facility] [id number] 09:04:00 Test Item Value Reference Range Interpretation Comments Sodium Lvl (test code = Sodium Lvl) 134 135-145 [facility] [id number] 09:04:00 Test Item Value Reference Range Interpretation Comments Potassium Lvl (test code = Potassium 4.0 3.5-5.1 Lvl) [facility] CenterTarsa TherapeuticsHEATHER VILLE [id number] 09:04:00 Test Item Value Reference Range Interpretation Comments Chloride Lvl (test code = Chloride Lvl) 102 95-109 [place] 506282-07-18 09:04:00 Test Item Value Reference Range Interpretation Comments CO2 (test code = CO2) 25 24-32 [place] 506282-07-18 09:04:00 Test Item Value Reference Range Interpretation Comments Calcium Lvl (test code = Calcium Lvl) 9.1 8.5-10.5 [facility] CenterTarsa TherapeuticsHEATHER [facility]LE [id number] 09:04:00 Test Item Value Reference Range Interpretation Comments Total Protein (test code = Total 6.2 6.4-8.4 Protein) [place] 506282-07-18 09:04:00 Test Item Value Reference Range Interpretation Comments Albumin Lvl (test code = Albumin Lvl) 2.8 3.5-5.0 [facility] CenterY[facility] [id number] 09:04:00 Test Item Value Reference Range Interpretation Comments ALT (test code = ALT) 78 See_Comment [Auto mated message] The system which ge nerated this result transmit swathi reference range : <=65. The reference range was not used to interpr et this result as deny l/abnormal. [facility] CenterY[facility] [id number] 09:04:00 Test Item Value Reference Range Interpretation Comments AST (test code = AST) 117 See_Comment [Auto mated message] The system which ge nerated this result transmit swathi reference range : <=37. The reference range was not used to interpr et this result as deny l/abnormal. [facility] [id number] 09:04:00 Test Item Value Reference Range Interpretation Comments Alk Phos (test code = Alk Phos) 251 39-136 [facility] Center[facility] [id number] 09:04:00 Test Item Value Reference Range Interpretation Comments Bili Total (test code = Bili Total) 0.9 0.2-1.3 [place] [address]-07-18 09:04:00 Test Item Value Reference Range Interpretation Comments AGAP (test code = AGAP) 11.0 10.0-20.0 [facility] [id number] 09:04:00 Test Item Value Reference Range Interpretation Comments B/C Ratio (test code = B/C Ratio) 6 1 6-25 [place] 506282-07-18 09:04:00 Test Item Value Reference Range Interpretation Comments Globulin (test code = Globulin) 3.4 2.7-4.2 [place] 506282-07-18 09:04:00 Test Item Value Reference Range Interpretation Comments A/G Ratio (test code = A/G Ratio) 0.8 1 0.7-1.6 [place] 506282-07-18 09:04:00 Test Item Value Reference Range Interpretation Comments eGFR (test code = eGFR) 8 [place] 155092-07-18 09:04:00 Test Item Value Reference Range Interpretation Comments D-Dimer (test code = D-Dimer) 3.03 [place] 155092-07-18 09:04:00 Test Item Value Reference Range Interpretation Comments WBC (test code = WBC) 3.6 3.7-10.4 [place] 155092-07-18 09:04:00 Test Item Value Reference Range Interpretation Comments RBC (test code = RBC) 2.07 4.70-6.10 [place] 155092-07-18 09:04:00 Test Item Value Reference Range Interpretation Comments Hgb (test code = Hgb) 7.5 14.0-18.0 [place] 155092-07-18 09:04:00 Test Item Value Reference Range Interpretation Comments Hct (test code = Hct) 22.0 42.0-54.0 [place] 155092-07-18 09:04:00 Test Item Value Reference Range Interpretation Comments MCV (test code = MCV) 106.3 80.0-94.0 [place] [address]-07-18 09:04:00 Test Item Value Reference Range Interpretation Comments MCH (test code = MCH) 36.1 pg 27.0-31.0 [place] 155092-07-18 09:04:00 Test Item Value Reference Range Interpretation Comments MCHC (test code = MCHC) 33.9 32.0-36.0 [place] [address]-07-18 09:04:00 Test Item Value Reference Range Interpretation Comments RDW (test code = RDW) 23.9 11.5-14.5 [place] 155092-07-18 09:04:00 Test Item Value Reference Range Interpretation Comments Platelet (test code = Platelet) 133 133-450 [place] 155092-07-18 09:04:00 Test Item Value Reference Range Interpretation Comments MPV (test code = MPV) 8.1 7.4-10.4 [place] 155092-07-18 09:04:00 Test Item Value Reference Range Interpretation Comments Segs (test code = Segs) 60.8 45.0-75.0 [place] 155092-07-18 09:04:00 Test Item Value Reference Range Interpretation Comments Lymphocytes (test code = Lymphocytes) 22.3 20.0-40.0 [place] 155092-07-18 09:04:00 Test Item Value Reference Range Interpretation Comments Monocytes (test code = Monocytes) 13.9 2.0-12.0 [place] 155092-07-18 09:04:00 Test Item Value Reference Range Interpretation Comments Eosinophils (test code = 2.6 See_Comment [A utomated message] The Eosinophils) system which ge nerated this result tra nsmitted reference range : <=4.0. The reference r samantha was not used to int erpret this result as normal/abnormal . [place] 155092-07-18 09:04:00 Test Item Value Reference Range Interpretation Comments Basophils (test code = 0.4 See_Comment [Aut omated message] The Basophils) system which ge nerated this result tra nsmitted reference range : <=1.0. The reference r samantha was not used to int erpret this result as normal/abnormal . [facility] CampusFurmdnnGMAMQMBJCG0018-14-77 09:04:00 Test Item Value Reference Range Interpretation Comments Neutrophils # (test code = Neutrophils 2.2 1.5-8.1 #) [place] 155092-07-18 09:04:00 Test Item Value Reference Range Interpretation Comments Lymphocytes # (test code = Lymphocytes 0.8 1.0-5.5 #) [place] 155092-07-18 09:04:00 Test Item Value Reference Range Interpretation Comments Monocytes # (test code 0.5 See_Comment [Aut omated message] The = Monocytes #) system which generated this result tra nsmitted reference range : <=0.8. The reference r samantha was not used to int erpret this result as normal/abnormal . [facility] CampusBwavtbhVREMVLSHPK8351-79-67 09:04:00 Test Item Value Reference Range Interpretation Comments Eosinophils # (test code 0.1 See_Comment [A utomated message] The = Eosinophils #) system whic h generated this result tra nsmitted reference range : <=0.5. The reference r samantha was not used to int erpret this result as normal/abnormal . [facility]HqniwdrOCLHIAXURD1749-83-28 09:04:00 Test Item Value Reference Range Interpretation Comments Macrocyte (test code = 1+ *ABN*(12/15/21 Macrocyte) 4:04 AM) [facility] [id number] 09:04:00 Test Item Value Reference Range Interpretation Comments C-REACTIVE PROTEIN (test code = 25.1 C-REACTIVE PROTEIN) [facility] CenterIzcfyvrGBKMADFWWO0967-96-73 09:04:00 Test Item Value Reference Range Interpretation Comments Vanco Lvl (test code = Vanco Lvl) 15.2 [facility]Dispatch [id number] 09:04:00 Test Item Value Reference Range Interpretation Comments Glucose Lvl (test code = Glucose Lvl) 59 70-99 [facility] [id number] 09:04:00 Test Item Value Reference Range Interpretation Comments BUN (test code = BUN) 41 7-22 [facility] [id number] 09:04:00 Test Item Value Reference Range Interpretation Comments Creatinine Lvl (test code = Creatinine 7.00 0.50-1.40 Lvl) [facility] [id number] 09:04:00 Test Item Value Reference Range Interpretation Comments Sodium Lvl (test code = Sodium Lvl) 134 135-145 [facility] [id number] 09:04:00 Test Item Value Reference Range Interpretation Comments Potassium Lvl (test code = Potassium 4.0 3.5-5.1 Lvl) [facility] [id number] 09:04:00 Test Item Value Reference Range Interpretation Comments Chloride Lvl (test code = Chloride Lvl) 102 95-109 [facility] [id number] 09:04:00 Test Item Value Reference Range Interpretation Comments CO2 (test code = CO2) 25 24-32 [facility] [id number] 09:04:00 Test Item Value Reference Range Interpretation Comments Calcium Lvl (test code = Calcium Lvl) 9.1 8.5-10.5 [facility] [id number] 09:04:00 Test Item Value Reference Range Interpretation Comments Total Protein (test code = Total 6.2 6.4-8.4 Protein) [facility] CenterY[facility] Technologies [id number] 09:04:00 Test Item Value Reference Range Interpretation Comments Albumin Lvl (test code = Albumin Lvl) 2.8 3.5-5.0 [facility] [id number] 09:04:00 Test Item Value Reference Range Interpretation Comments ALT (test code = ALT) 78 See_Comment [Auto mated message] The system which ge nerated this result transmit swathi reference range : <=65. The reference range was not used to interpr et this result as deny l/abnormal. [facility] [id number] 09:04:00 Test Item Value Reference Range Interpretation Comments AST (test code = AST) 117 See_Comment [Auto mated message] The system which ge nerated this result transmit swathi reference range : <=37. The reference range was not used to interpr et this result as deny l/abnormal. [facility] [employer] [id number] 09:04:00 Test Item Value Reference Range Interpretation Comments Alk Phos (test code = Alk Phos) 251 39-136 [facility] [employer] [id number] 09:04:00 Test Item Value Reference Range Interpretation Comments Bili Total (test code = Bili Total) 0.9 0.2-1.3 [facility] [employer] [id number] 09:04:00 Test Item Value Reference Range Interpretation Comments AGAP (test code = AGAP) 11.0 10.0-20.0 [facility] [employer] [id number] 09:04:00 Test Item Value Reference Range Interpretation Comments B/C Ratio (test code = B/C Ratio) 6 1 6-25 [facility] [id number] 09:04:00 Test Item Value Reference Range Interpretation Comments Globulin (test code = Globulin) 3.4 2.7-4.2 [facility]2022-07-18 09:04:00 Test Item Value Reference Range Interpretation Comments A/G Ratio (test code = A/G Ratio) 0.8 1 0.7-1.6 [facility]2022-07-18 09:04:00 Test Item Value Reference Range Interpretation Comments eGFR (test code = eGFR) 8 [facility] CampusIignzxyUXIPCDLQGY7401-55-17 09:04:00 Test Item Value Reference Range Interpretation Comments D-Dimer (test code = D-Dimer) 3.03 [place] 155092-07-18 09:04:00 Test Item Value Reference Range Interpretation Comments WBC (test code = WBC) 3.6 3.7-10.4 [place] 155092-07-18 09:04:00 Test Item Value Reference Range Interpretation Comments RBC (test code = RBC) 2.07 4.70-6.10 [facility] CampusThmcpviQYCKGSCGDV6602-37-78 09:04:00 Test Item Value Reference Range Interpretation Comments Hgb (test code = Hgb) 7.5 14.0-18.0 [place] 155092-07-18 09:04:00 Test Item Value Reference Range Interpretation Comments Hct (test code = Hct) 22.0 42.0-54.0 [facility] CampusUzpfremLRZIBPYPKT2004-86-52 09:04:00 Test Item Value Reference Range Interpretation Comments MCV (test code = MCV) 106.3 80.0-94.0 [place] 155092-07-18 09:04:00 Test Item Value Reference Range Interpretation Comments MCH (test code = MCH) 36.1 pg 27.0-31.0 [place] 155092-07-18 09:04:00 Test Item Value Reference Range Interpretation Comments MCHC (test code = MCHC) 33.9 32.0-36.0 [place] 155092-07-18 09:04:00 Test Item Value Reference Range Interpretation Comments RDW (test code = RDW) 23.9 11.5-14.5 [place] 155092-07-18 09:04:00 Test Item Value Reference Range Interpretation Comments Platelet (test code = Platelet) 133 133-450 [facility] CampusWyjnvogNJUTWUQBYB2898-85-18 09:04:00 Test Item Value Reference Range Interpretation Comments MPV (test code = MPV) 8.1 7.4-10.4 [place] [address]-07-18 09:04:00 Test Item Value Reference Range Interpretation Comments Segs (test code = Segs) 60.8 45.0-75.0 [place] 155092-07-18 09:04:00 Test Item Value Reference Range Interpretation Comments Lymphocytes (test code = Lymphocytes) 22.3 20.0-40.0 [place] [address]-07-18 09:04:00 Test Item Value Reference Range Interpretation Comments Monocytes (test code = Monocytes) 13.9 2.0-12.0 [place] [address]-07-18 09:04:00 Test Item Value Reference Range Interpretation Comments Eosinophils (test code = 2.6 See_Comment [A utomated message] The Eosinophils) system which ge nerated this result tra nsmitted reference range : <=4.0. The reference r samantha was not used to int erpret this result as normal/abnormal . [place] [address]-07-18 09:04:00 Test Item Value Reference Range Interpretation Comments Basophils (test code = 0.4 See_Comment [Aut omated message] The Basophils) system which ge nerated this result tra nsmitted reference range : <=1.0. The reference r samantha was not used to int erpret this result as normal/abnormal . [place] [address]-07-18 09:04:00 Test Item Value Reference Range Interpretation Comments Neutrophils # (test code = Neutrophils 2.2 1.5-8.1 #) [place] [address]-07-18 09:04:00 Test Item Value Reference Range Interpretation Comments Lymphocytes # (test code = Lymphocytes 0.8 1.0-5.5 #) [place] [address]-07-18 09:04:00 Test Item Value Reference Range Interpretation Comments Monocytes # (test code 0.5 See_Comment [Aut omated message] The = Monocytes #) system which generated this result tra nsmitted reference range : <=0.8. The reference r samantha was not used to int erpret this result as normal/abnormal . [place] [address]-07-18 09:04:00 Test Item Value Reference Range Interpretation Comments Eosinophils # (test code 0.1 See_Comment [A utomated message] The = Eosinophils #) system whic h generated this result tra nsmitted reference range : <=0.5. The reference r samantha was not used to int erpret this result as normal/abnormal . [facility] HospitalUxfjmuoUTMOODXQHL8195-76-73 09:04:00 Test Item Value Reference Range Interpretation Comments Macrocyte (test code = 1+ *ABN*(12/15/21 Macrocyte) 4:04 AM) [facility] CenterKonptfjGIDRGSZSWQ7957-36-47 09:04:00 Test Item Value Reference Range Interpretation Comments C-REACTIVE PROTEIN (test code = 25.1 C-REACTIVE PROTEIN) [facility] CenterMyrfejyVAQXMXWQGT5168-21-91 09:04:00 Test Item Value Reference Range Interpretation Comments Vanco Lvl (test code = Vanco Lvl) 15.2 [facility]2022-07-18 09:04:00 Test Item Value Reference Range Interpretation Comments Glucose Lvl (test code = Glucose Lvl) 59 70-99 [facility]2022-07-18 09:04:00 Test Item Value Reference Range Interpretation Comments BUN (test code = BUN) 41 7-22 [facility]2022-07-18 09:04:00 Test Item Value Reference Range Interpretation Comments Creatinine Lvl (test code = Creatinine 7.00 0.50-1.40 Lvl) [facility]2022-07-18 09:04:00 Test Item Value Reference Range Interpretation Comments Sodium Lvl (test code = Sodium Lvl) 134 135-145 [facility]2022-07-18 09:04:00 Test Item Value Reference Range Interpretation Comments Potassium Lvl (test code = Potassium 4.0 3.5-5.1 Lvl) [facility]2022-07-18 09:04:00 Test Item Value Reference Range Interpretation Comments Chloride Lvl (test code = Chloride Lvl) 102 95-109 [facility]2022-07-18 09:04:00 Test Item Value Reference Range Interpretation Comments CO2 (test code = CO2) 25 24-32 [facility]2022-07-18 09:04:00 Test Item Value Reference Range Interpretation Comments Calcium Lvl (test code = Calcium Lvl) 9.1 8.5-10.5 [place] 506282-07-18 09:04:00 Test Item Value Reference Range Interpretation Comments Total Protein (test code = Total 6.2 6.4-8.4 Protein) [place] 506282-07-18 09:04:00 Test Item Value Reference Range Interpretation Comments Albumin Lvl (test code = Albumin Lvl) 2.8 3.5-5.0 [facility] [id number] 09:04:00 Test Item Value Reference Range Interpretation Comments ALT (test code = ALT) 78 See_Comment [Auto mated message] The system which ge nerated this result transmit swathi reference range : <=65. The reference range was not used to interpr et this result as deny l/abnormal. [facility] [id number] 09:04:00 Test Item Value Reference Range Interpretation Comments AST (test code = AST) 117 See_Comment [Auto mated message] The system which ge nerated this result transmit swathi reference range : <=37. The reference range was not used to interpr et this result as deny l/abnormal. [facility] [employer] [id number] 09:04:00 Test Item Value Reference Range Interpretation Comments Alk Phos (test code = Alk Phos) 251 39-136 [facility] [employer] [id number] 09:04:00 Test Item Value Reference Range Interpretation Comments Bili Total (test code = Bili Total) 0.9 0.2-1.3 [facility] [employer] [id number] 09:04:00 Test Item Value Reference Range Interpretation Comments AGAP (test code = AGAP) 11.0 10.0-20.0 [facility] [employer] [id number] 09:04:00 Test Item Value Reference Range Interpretation Comments B/C Ratio (test code = B/C Ratio) 6 1 6-25 [facility] [id number] 09:04:00 Test Item Value Reference Range Interpretation Comments Globulin (test code = Globulin) 3.4 2.7-4.2 [facility] [id number] 09:04:00 Test Item Value Reference Range Interpretation Comments A/G Ratio (test code = A/G Ratio) 0.8 1 0.7-1.6 [facility] [employer] [id number] 09:04:00 Test Item Value Reference Range Interpretation Comments eGFR (test code = eGFR) 8 [facility] CampusGwibtftNGPMVJJJXL1737-06-82 09:04:00 Test Item Value Reference Range Interpretation Comments D-Dimer (test code = D-Dimer) 3.03 [facility] CampusMbndacnGJYLHAGVRO1080-71-89 09:04:00 Test Item Value Reference Range Interpretation Comments WBC (test code = WBC) 3.6 3.7-10.4 [facility] CampusNgavvkvSAKVCRDEOY7832-06-02 09:04:00 Test Item Value Reference Range Interpretation Comments RBC (test code = RBC) 2.07 4.70-6.10 [facility] CampusPbhsxujJSAQSUADEJ6438-30-12 09:04:00 Test Item Value Reference Range Interpretation Comments Hgb (test code = Hgb) 7.5 14.0-18.0 [facility] CampusPuozwvzBCMMDLATEP3974-06-98 09:04:00 Test Item Value Reference Range Interpretation Comments Hct (test code = Hct) 22.0 42.0-54.0 [facility] CampusWofsjckQUJRICUKGK9143-34-61 09:04:00 Test Item Value Reference Range Interpretation Comments MCV (test code = MCV) 106.3 80.0-94.0 [facility] CampusLdqokofAHFHOTFQOX0481-49-60 09:04:00 Test Item Value Reference Range Interpretation Comments MCH (test code = MCH) 36.1 pg 27.0-31.0 [facility] CampusLlaptpwVZNFAZQKRL2784-60-78 09:04:00 Test Item Value Reference Range Interpretation Comments MCHC (test code = MCHC) 33.9 32.0-36.0 [facility] CampusArjzmprTHRNLNHESY4855-79-13 09:04:00 Test Item Value Reference Range Interpretation Comments RDW (test code = RDW) 23.9 11.5-14.5 [facility] CampusGyuhkxnEKTIOXRIJD8786-81-93 09:04:00 Test Item Value Reference Range Interpretation Comments Platelet (test code = Platelet) 133 133-450 [facility] CampusFvizsjxQVVXQWQJVS1708-59-72 09:04:00 Test Item Value Reference Range Interpretation Comments MPV (test code = MPV) 8.1 7.4-10.4 [facility] CampusSwmwilgDEGVZKRLSK0543-25-10 09:04:00 Test Item Value Reference Range Interpretation Comments Segs (test code = Segs) 60.8 45.0-75.0 [place] [address]-07-18 09:04:00 Test Item Value Reference Range Interpretation Comments Lymphocytes (test code = Lymphocytes) 22.3 20.0-40.0 [place] 155092-07-18 09:04:00 Test Item Value Reference Range Interpretation Comments Monocytes (test code = Monocytes) 13.9 2.0-12.0 [facility] CampusPwkgdsgMLOFTIJFPF2449-03-60 09:04:00 Test Item Value Reference Range Interpretation Comments Eosinophils (test code = 2.6 See_Comment [A utomated message] The Eosinophils) system which ge nerated this result tra nsmitted reference range : <=4.0. The reference r samantha was not used to int erpret this result as normal/abnormal . [place] [address]-07-18 09:04:00 Test Item Value Reference Range Interpretation Comments Basophils (test code = 0.4 See_Comment [Aut omated message] The Basophils) system which ge nerated this result tra nsmitted reference range : <=1.0. The reference r samantha was not used to int erpret this result as normal/abnormal . [facility] CampusRsbdblkBPXRPLUOLC9934-83-03 09:04:00 Test Item Value Reference Range Interpretation Comments Neutrophils # (test code = Neutrophils 2.2 1.5-8.1 #) [place] 155092-07-18 09:04:00 Test Item Value Reference Range Interpretation Comments Lymphocytes # (test code = Lymphocytes 0.8 1.0-5.5 #) [place] 155092-07-18 09:04:00 Test Item Value Reference Range Interpretation Comments Monocytes # (test code 0.5 See_Comment [Aut omated message] The = Monocytes #) system which generated this result tra nsmitted reference range : <=0.8. The reference r samantha was not used to int erpret this result as normal/abnormal . [place] 155092-07-18 09:04:00 Test Item Value Reference Range Interpretation Comments Eosinophils # (test code 0.1 See_Comment [A utomated message] The = Eosinophils #) system whic h generated this result tra nsmitted reference range : <=0.5. The reference r samantha was not used to int erpret this result as normal/abnormal . [place] 155092-07-18 09:04:00 Test Item Value Reference Range Interpretation Comments Macrocyte (test code = 1+ *ABN*(12/15/21 Macrocyte) 4:04 AM) [facility]AfoptjbYOPLWVPZNK4353-13-74 09:04:00 Test Item Value Reference Range Interpretation Comments C-REACTIVE PROTEIN (test code = 25.1 C-REACTIVE PROTEIN) [facility] CenterJlhzmciADUEUWMNPG4487-31-69 09:04:00 Test Item Value Reference Range Interpretation Comments Vanco Lvl (test code = Vanco Lvl) 15.2 [facility]2022-07-18 09:04:00 Test Item Value Reference Range Interpretation Comments Glucose Lvl (test code = Glucose Lvl) 59 70-99 [facility]2022-07-18 09:04:00 Test Item Value Reference Range Interpretation Comments BUN (test code = BUN) 41 7-22 [facility]2022-07-18 09:04:00 Test Item Value Reference Range Interpretation Comments Creatinine Lvl (test code = Creatinine 7.00 0.50-1.40 Lvl) [facility]2022-07-18 09:04:00 Test Item Value Reference Range Interpretation Comments Sodium Lvl (test code = Sodium Lvl) 134 135-145 [facility]2022-07-18 09:04:00 Test Item Value Reference Range Interpretation Comments Potassium Lvl (test code = Potassium 4.0 3.5-5.1 Lvl) [facility]2022-07-18 09:04:00 Test Item Value Reference Range Interpretation Comments Chloride Lvl (test code = Chloride Lvl) 102 95-109 [facility]2022-07-18 09:04:00 Test Item Value Reference Range Interpretation Comments CO2 (test code = CO2) 25 24-32 [facility]2022-07-18 09:04:00 Test Item Value Reference Range Interpretation Comments Calcium Lvl (test code = Calcium Lvl) 9.1 8.5-10.5 [facility]2022-07-18 09:04:00 Test Item Value Reference Range Interpretation Comments Total Protein (test code = Total 6.2 6.4-8.4 Protein) [facility]2022-07-18 09:04:00 Test Item Value Reference Range Interpretation Comments Albumin Lvl (test code = Albumin Lvl) 2.8 3.5-5.0 [facility] [employer] [id number] 09:04:00 Test Item Value Reference Range Interpretation Comments ALT (test code = ALT) 78 See_Comment [Auto mated message] The system which ge nerated this result transmit swathi reference range : <=65. The reference range was not used to interpr et this result as deny l/abnormal. [facility] [employer] [id number] 09:04:00 Test Item Value Reference Range Interpretation Comments AST (test code = AST) 117 See_Comment [Auto mated message] The system which ge nerated this result transmit swathi reference range : <=37. The reference range was not used to interpr et this result as deny l/abnormal. [facility] [employer] [id number] 09:04:00 Test Item Value Reference Range Interpretation Comments Alk Phos (test code = Alk Phos) 251 39-136 [facility] [employer] [id number] 09:04:00 Test Item Value Reference Range Interpretation Comments Bili Total (test code = Bili Total) 0.9 0.2-1.3 [facility] [employer] [id number] 09:04:00 Test Item Value Reference Range Interpretation Comments AGAP (test code = AGAP) 11.0 10.0-20.0 [facility] [employer] [id number] 09:04:00 Test Item Value Reference Range Interpretation Comments B/C Ratio (test code = B/C Ratio) 6 1 6-25 [facility] [employer] [id number] 09:04:00 Test Item Value Reference Range Interpretation Comments Globulin (test code = Globulin) 3.4 2.7-4.2 [facility] [employer] [id number] 09:04:00 Test Item Value Reference Range Interpretation Comments A/G Ratio (test code = A/G Ratio) 0.8 1 0.7-1.6 [facility] [employer] [id number] 09:04:00 Test Item Value Reference Range Interpretation Comments eGFR (test code = eGFR) 8 [facility] CenterYxdzbsgEHJZJPCLMZ4724-28-34 09:04:00 Test Item Value Reference Range Interpretation Comments D-Dimer (test code = D-Dimer) 3.03 [facility] CenterOejmzfnAEWBPSCMXK9851-70-12 09:04:00 Test Item Value Reference Range Interpretation Comments WBC (test code = WBC) 3.6 3.7-10.4 [facility]GcyekzoBYXPPUVALU7824-62-22 09:04:00 Test Item Value Reference Range Interpretation Comments RBC (test code = RBC) 2.07 4.70-6.10 [place] 155092-07-18 09:04:00 Test Item Value Reference Range Interpretation Comments Hgb (test code = Hgb) 7.5 14.0-18.0 [place] 155092-07-18 09:04:00 Test Item Value Reference Range Interpretation Comments Hct (test code = Hct) 22.0 42.0-54.0 [facility] CampusNfxcsuzCJYCUZAPMW4274-06-24 09:04:00 Test Item Value Reference Range Interpretation Comments MCV (test code = MCV) 106.3 80.0-94.0 [place] 155092-07-18 09:04:00 Test Item Value Reference Range Interpretation Comments MCH (test code = MCH) 36.1 pg 27.0-31.0 [facility] CampusUuvffepGREYEYHSSJ6976-71-43 09:04:00 Test Item Value Reference Range Interpretation Comments MCHC (test code = MCHC) 33.9 32.0-36.0 [facility] CampusTkufwptWSVWJHZVUS4918-36-11 09:04:00 Test Item Value Reference Range Interpretation Comments RDW (test code = RDW) 23.9 11.5-14.5 [facility] CampusTnerhyvFGZXKUMBIZ6965-89-35 09:04:00 Test Item Value Reference Range Interpretation Comments Platelet (test code = Platelet) 133 133-450 [facility] CampusAxymopwBDMVGHBEHB0580-69-69 09:04:00 Test Item Value Reference Range Interpretation Comments MPV (test code = MPV) 8.1 7.4-10.4 [facility] CampusBkzqrakPKGWANEBYY3483-12-45 09:04:00 Test Item Value Reference Range Interpretation Comments Segs (test code = Segs) 60.8 45.0-75.0 [facility] CampusWdugtsvNSHEPXSZFK1047-98-49 09:04:00 Test Item Value Reference Range Interpretation Comments Lymphocytes (test code = Lymphocytes) 22.3 20.0-40.0 [facility] CampusJgqaqvxOMROJGEDPJ1120-51-74 09:04:00 Test Item Value Reference Range Interpretation Comments Monocytes (test code = Monocytes) 13.9 2.0-12.0 [facility] CampusWlsowlaTTSOWEYOMC9566-75-93 09:04:00 Test Item Value Reference Range Interpretation Comments Eosinophils (test code = 2.6 See_Comment [A utomated message] The Eosinophils) system which ge nerated this result tra nsmitted reference range : <=4.0. The reference r samantha was not used to int erpret this result as normal/abnormal . [facility] CampusNvwamskTLSPBGYJXK2195-79-67 09:04:00 Test Item Value Reference Range Interpretation Comments Basophils (test code = 0.4 See_Comment [Aut omated message] The Basophils) system which ge nerated this result tra nsmitted reference range : <=1.0. The reference r samantha was not used to int erpret this result as normal/abnormal . [facility] CampusFfjxcmfDVRHCNHIBQ3703-40-68 09:04:00 Test Item Value Reference Range Interpretation Comments Neutrophils # (test code = Neutrophils 2.2 1.5-8.1 #) [facility] CampusTuevjaeHKHBNGZQJD0864-45-88 09:04:00 Test Item Value Reference Range Interpretation Comments Lymphocytes # (test code = Lymphocytes 0.8 1.0-5.5 #) [facility] CampusEhvhqoaLAPBYYFBIR5931-20-45 09:04:00 Test Item Value Reference Range Interpretation Comments Monocytes # (test code 0.5 See_Comment [Aut omated message] The = Monocytes #) system which generated this result tra nsmitted reference range : <=0.8. The reference r samantha was not used to int erpret this result as normal/abnormal . [facility] CampusOyhbufrQKUSJPOAPK3413-52-26 09:04:00 Test Item Value Reference Range Interpretation Comments Eosinophils # (test code 0.1 See_Comment [A utomated message] The = Eosinophils #) system whic h generated this result tra nsmitted reference range : <=0.5. The reference r samantha was not used to int erpret this result as normal/abnormal . [facility] CampusLnpnclkZKZXLTTEHM3965-97-77 09:04:00 Test Item Value Reference Range Interpretation Comments Macrocyte (test code = 1+ *ABN*(12/15/21 Macrocyte) 4:04 AM) [facility]HzhvuccERFPKVJHNI2579-12-78 09:04:00 Test Item Value Reference Range Interpretation Comments C-REACTIVE PROTEIN (test code = 25.1 C-REACTIVE PROTEIN) [facility] CenterUrrnljsZSZNAMUCEC3627-06-75 09:04:00 Test Item Value Reference Range Interpretation Comments Vanco Lvl (test code = Vanco Lvl) 15.2 [facility]2022-07-18 09:04:00 Test Item Value Reference Range Interpretation Comments Glucose Lvl (test code = Glucose Lvl) 59 70-99 [place] 506282-07-18 09:04:00 Test Item Value Reference Range Interpretation Comments BUN (test code = BUN) 41 7-22 [place] 506282-07-18 09:04:00 Test Item Value Reference Range Interpretation Comments Creatinine Lvl (test code = Creatinine 7.00 0.50-1.40 Lvl) [place] 506282-07-18 09:04:00 Test Item Value Reference Range Interpretation Comments Sodium Lvl (test code = Sodium Lvl) 134 135-145 [place] 506282-07-18 09:04:00 Test Item Value Reference Range Interpretation Comments Potassium Lvl (test code = Potassium 4.0 3.5-5.1 Lvl) [facility]2022-07-18 09:04:00 Test Item Value Reference Range Interpretation Comments Chloride Lvl (test code = Chloride Lvl) 102 95-109 [place] 506282-07-18 09:04:00 Test Item Value Reference Range Interpretation Comments CO2 (test code = CO2) 25 24-32 [place] 506282-07-18 09:04:00 Test Item Value Reference Range Interpretation Comments Calcium Lvl (test code = Calcium Lvl) 9.1 8.5-10.5 [place] 506282-07-18 09:04:00 Test Item Value Reference Range Interpretation Comments Total Protein (test code = Total 6.2 6.4-8.4 Protein) [place] 506282-07-18 09:04:00 Test Item Value Reference Range Interpretation Comments Albumin Lvl (test code = Albumin Lvl) 2.8 3.5-5.0 [place] 506282-07-18 09:04:00 Test Item Value Reference Range Interpretation Comments ALT (test code = ALT) 78 See_Comment [Auto mated message] The system which ge nerated this result transmit swathi reference range : <=65. The reference range was not used to interpr et this result as deny l/abnormal. [place] 506282-07-18 09:04:00 Test Item Value Reference Range Interpretation Comments AST (test code = AST) 117 See_Comment [Auto mated message] The system which ge nerated this result transmit swathi reference range : <=37. The reference range was not used to interpr et this result as deny l/abnormal. [place] 506282-07-18 09:04:00 Test Item Value Reference Range Interpretation Comments Alk Phos (test code = Alk Phos) 251 39-136 [place] 506282-07-18 09:04:00 Test Item Value Reference Range Interpretation Comments Bili Total (test code = Bili Total) 0.9 0.2-1.3 [place] 506282-07-18 09:04:00 Test Item Value Reference Range Interpretation Comments AGAP (test code = AGAP) 11.0 10.0-20.0 [place] 506282-07-18 09:04:00 Test Item Value Reference Range Interpretation Comments B/C Ratio (test code = B/C Ratio) 6 1 6-25 [place] 506282-07-18 09:04:00 Test Item Value Reference Range Interpretation Comments Globulin (test code = Globulin) 3.4 2.7-4.2 [place] 506282-07-18 09:04:00 Test Item Value Reference Range Interpretation Comments A/G Ratio (test code = A/G Ratio) 0.8 1 0.7-1.6 [place] 8[address]-07-18 09:04:00 Test Item Value Reference Range Interpretation Comments eGFR (test code = eGFR) 8 [place] 155092-07-18 09:04:00 Test Item Value Reference Range Interpretation Comments D-Dimer (test code = D-Dimer) 3.03 [place] [address]-07-18 09:04:00 Test Item Value Reference Range Interpretation Comments WBC (test code = WBC) 3.6 3.7-10.4 [place] 155092-07-18 09:04:00 Test Item Value Reference Range Interpretation Comments RBC (test code = RBC) 2.07 4.70-6.10 [place] 155092-07-18 09:04:00 Test Item Value Reference Range Interpretation Comments Hgb (test code = Hgb) 7.5 14.0-18.0 [place] 155092-07-18 09:04:00 Test Item Value Reference Range Interpretation Comments Hct (test code = Hct) 22.0 42.0-54.0 [place] 155092-07-18 09:04:00 Test Item Value Reference Range Interpretation Comments MCV (test code = MCV) 106.3 80.0-94.0 [place] 155092-07-18 09:04:00 Test Item Value Reference Range Interpretation Comments MCH (test code = MCH) 36.1 pg 27.0-31.0 [place] 155092-07-18 09:04:00 Test Item Value Reference Range Interpretation Comments MCHC (test code = MCHC) 33.9 32.0-36.0 [place] 155092-07-18 09:04:00 Test Item Value Reference Range Interpretation Comments RDW (test code = RDW) 23.9 11.5-14.5 [place] 155092-07-18 09:04:00 Test Item Value Reference Range Interpretation Comments Platelet (test code = Platelet) 133 133-450 [facility] CampusKebmaorICHTWERLPK9718-76-96 09:04:00 Test Item Value Reference Range Interpretation Comments MPV (test code = MPV) 8.1 7.4-10.4 [place] 155092-07-18 09:04:00 Test Item Value Reference Range Interpretation Comments Segs (test code = Segs) 60.8 45.0-75.0 [place] 155092-07-18 09:04:00 Test Item Value Reference Range Interpretation Comments Lymphocytes (test code = Lymphocytes) 22.3 20.0-40.0 [place] 155092-07-18 09:04:00 Test Item Value Reference Range Interpretation Comments Monocytes (test code = Monocytes) 13.9 2.0-12.0 [place] 155092-07-18 09:04:00 Test Item Value Reference Range Interpretation Comments Eosinophils (test code = 2.6 See_Comment [A utomated message] The Eosinophils) system which ge nerated this result tra nsmitted reference range : <=4.0. The reference r samantha was not used to int erpret this result as normal/abnormal . [facility] CenterKjqagwcRLEBCPNWGU0815-74-78 09:04:00 Test Item Value Reference Range Interpretation Comments Basophils (test code = 0.4 See_Comment [Aut omated message] The Basophils) system which ge nerated this result tra nsmitted reference range : <=1.0. The reference r samantha was not used to int erpret this result as normal/abnormal . [facility] CenterFovakyoWYEPRQDPMO8627-34-74 09:04:00 Test Item Value Reference Range Interpretation Comments Neutrophils # (test code = Neutrophils 2.2 1.5-8.1 #) [facility]YgxbehcNWUPZDEKZS8928-86-14 09:04:00 Test Item Value Reference Range Interpretation Comments Lymphocytes # (test code = Lymphocytes 0.8 1.0-5.5 #) [facility] HospitalXrgzcsgCINXLEAMJH1912-74-09 09:04:00 Test Item Value Reference Range Interpretation Comments Monocytes # (test code 0.5 See_Comment [Aut omated message] The = Monocytes #) system which generated this result tra nsmitted reference range : <=0.8. The reference r samantha was not used to int erpret this result as normal/abnormal . [facility] CenterBgnkqulXMNYESOFVH6182-81-76 09:04:00 Test Item Value Reference Range Interpretation Comments Eosinophils # (test code 0.1 See_Comment [A utomated message] The = Eosinophils #) system whic h generated this result tra nsmitted reference range : <=0.5. The reference r samantha was not used to int erpret this result as normal/abnormal . [facility] CenterCszeinjYENCLZJNOA3452-31-90 09:04:00 Test Item Value Reference Range Interpretation Comments Macrocyte (test code = 1+ *ABN*(12/15/21 Macrocyte) 4:04 AM) [facility] CenterZbwphtqLCEZOLYOAL1629-81-08 09:04:00 Test Item Value Reference Range Interpretation Comments C-REACTIVE PROTEIN (test code = 25.1 C-REACTIVE PROTEIN) [facility] CenterPnkcqvoHJVLAVWKPO9173-47-69 09:04:00 Test Item Value Reference Range Interpretation Comments Vanco Lvl (test code = Vanco Lvl) 15.2 [facility] CenterannCHEM [id number] 09:04:00 Test Item Value Reference Range Interpretation Comments Glucose Lvl (test code = Glucose Lvl) 59 70-99 [place] 506282-07-18 09:04:00 Test Item Value Reference Range Interpretation Comments BUN (test code = BUN) 41 7-22 [place] 506282-07-18 09:04:00 Test Item Value Reference Range Interpretation Comments Creatinine Lvl (test code = Creatinine 7.00 0.50-1.40 Lvl) [place] 506282-07-18 09:04:00 Test Item Value Reference Range Interpretation Comments Sodium Lvl (test code = Sodium Lvl) 134 135-145 [place] 506282-07-18 09:04:00 Test Item Value Reference Range Interpretation Comments Potassium Lvl (test code = Potassium 4.0 3.5-5.1 Lvl) [place] 506282-07-18 09:04:00 Test Item Value Reference Range Interpretation Comments Chloride Lvl (test code = Chloride Lvl) 102 95-109 [place] 506282-07-18 09:04:00 Test Item Value Reference Range Interpretation Comments CO2 (test code = CO2) 25 24-32 [place] 506282-07-18 09:04:00 Test Item Value Reference Range Interpretation Comments Calcium Lvl (test code = Calcium Lvl) 9.1 8.5-10.5 [place] 506282-07-18 09:04:00 Test Item Value Reference Range Interpretation Comments Total Protein (test code = Total 6.2 6.4-8.4 Protein) [place] 506282-07-18 09:04:00 Test Item Value Reference Range Interpretation Comments Albumin Lvl (test code = Albumin Lvl) 2.8 3.5-5.0 [place] 506282-07-18 09:04:00 Test Item Value Reference Range Interpretation Comments ALT (test code = ALT) 78 See_Comment [Auto mated message] The system which ge nerated this result transmit swathi reference range : <=65. The reference range was not used to interpr et this result as deny l/abnormal. [place] 506282-07-18 09:04:00 Test Item Value Reference Range Interpretation Comments AST (test code = AST) 117 See_Comment [Auto mated message] The system which ge nerated this result transmit swathi reference range : <=37. The reference range was not used to interpr et this result as deny l/abnormal. [facility] CenterDispatch [id number] 09:04:00 Test Item Value Reference Range Interpretation Comments Alk Phos (test code = Alk Phos) 251 39-136 [facility] CenterDispatch [id number] 09:04:00 Test Item Value Reference Range Interpretation Comments Bili Total (test code = Bili Total) 0.9 0.2-1.3 [facility] CenterDispatch [id number] 09:04:00 Test Item Value Reference Range Interpretation Comments AGAP (test code = AGAP) 11.0 10.0-20.0 [facility] CenterDispatch [id number] 09:04:00 Test Item Value Reference Range Interpretation Comments B/C Ratio (test code = B/C Ratio) 6 1 6-25 [facility] CenterYospace Technologies [id number] 09:04:00 Test Item Value Reference Range Interpretation Comments Globulin (test code = Globulin) 3.4 2.7-4.2 [facility] CenterDispatch [id number] 09:04:00 Test Item Value Reference Range Interpretation Comments A/G Ratio (test code = A/G Ratio) 0.8 1 0.7-1.6 [facility] CenterDispatch [id number] 09:04:00 Test Item Value Reference Range Interpretation Comments eGFR (test code = eGFR) 8 [facility] CenterMtlbcpzIYHLYKKGTG7794-08-19 09:04:00 Test Item Value Reference Range Interpretation Comments D-Dimer (test code = D-Dimer) 3.03 [facility] CenterLzbmvjdNTULZPFQZM5079-85-61 09:04:00 Test Item Value Reference Range Interpretation Comments WBC (test code = WBC) 3.6 3.7-10.4 [facility] CenterCfirgtqIBIQVQKZZQ6263-14-72 09:04:00 Test Item Value Reference Range Interpretation Comments RBC (test code = RBC) 2.07 4.70-6.10 [place] [address]-07-18 09:04:00 Test Item Value Reference Range Interpretation Comments Hgb (test code = Hgb) 7.5 14.0-18.0 [place] [address]-07-18 09:04:00 Test Item Value Reference Range Interpretation Comments Hct (test code = Hct) 22.0 42.0-54.0 [place] 155092-07-18 09:04:00 Test Item Value Reference Range Interpretation Comments MCV (test code = MCV) 106.3 80.0-94.0 [place] 155092-07-18 09:04:00 Test Item Value Reference Range Interpretation Comments MCH (test code = MCH) 36.1 pg 27.0-31.0 [place] 155092-07-18 09:04:00 Test Item Value Reference Range Interpretation Comments MCHC (test code = MCHC) 33.9 32.0-36.0 [place] 155092-07-18 09:04:00 Test Item Value Reference Range Interpretation Comments RDW (test code = RDW) 23.9 11.5-14.5 [place] 155092-07-18 09:04:00 Test Item Value Reference Range Interpretation Comments Platelet (test code = Platelet) 133 133-450 [facility] CampusXlgmduxYTYDAOOYWF9540-23-72 09:04:00 Test Item Value Reference Range Interpretation Comments MPV (test code = MPV) 8.1 7.4-10.4 [place] 155092-07-18 09:04:00 Test Item Value Reference Range Interpretation Comments Segs (test code = Segs) 60.8 45.0-75.0 [place] 155092-07-18 09:04:00 Test Item Value Reference Range Interpretation Comments Lymphocytes (test code = Lymphocytes) 22.3 20.0-40.0 [place] 155092-07-18 09:04:00 Test Item Value Reference Range Interpretation Comments Monocytes (test code = Monocytes) 13.9 2.0-12.0 [place] 155092-07-18 09:04:00 Test Item Value Reference Range Interpretation Comments Eosinophils (test code = 2.6 See_Comment [A utomated message] The Eosinophils) system which ge nerated this result tra nsmitted reference range : <=4.0. The reference r samantha was not used to int erpret this result as normal/abnormal . [place] 155092-07-18 09:04:00 Test Item Value Reference Range Interpretation Comments Basophils (test code = 0.4 See_Comment [Aut omated message] The Basophils) system which ge nerated this result tra nsmitted reference range : <=1.0. The reference r samantha was not used to int erpret this result as normal/abnormal . [facility] CampusLlmqmhjYJOTSUWAMY9040-56-24 09:04:00 Test Item Value Reference Range Interpretation Comments Neutrophils # (test code = Neutrophils 2.2 1.5-8.1 #) [facility] CampusWeqkxuyQAPWGABYCN5619-34-21 09:04:00 Test Item Value Reference Range Interpretation Comments Lymphocytes # (test code = Lymphocytes 0.8 1.0-5.5 #) [facility] CampusHuubqvpPTRNJCIUCF2100-71-92 09:04:00 Test Item Value Reference Range Interpretation Comments Monocytes # (test code 0.5 See_Comment [Aut omated message] The = Monocytes #) system which generated this result tra nsmitted reference range : <=0.8. The reference r samantha was not used to int erpret this result as normal/abnormal . [facility] CampusIwitlxqFTRLWXMZVW8348-33-57 09:04:00 Test Item Value Reference Range Interpretation Comments Eosinophils # (test code 0.1 See_Comment [A utomated message] The = Eosinophils #) system whic h generated this result tra nsmitted reference range : <=0.5. The reference r samantha was not used to int erpret this result as normal/abnormal . [facility] CampusAydkwrsJUAENBOZUE0867-45-18 09:04:00 Test Item Value Reference Range Interpretation Comments Macrocyte (test code = 1+ *ABN*(12/15/21 Macrocyte) 4:04 AM) [facility] CenterWloaggtXULHXFLDBJ5513-35-72 09:04:00 Test Item Value Reference Range Interpretation Comments C-REACTIVE PROTEIN (test code = 25.1 C-REACTIVE PROTEIN) [facility] CenterHwgjxokCTJIVUWEYH2550-06-60 09:04:00 Test Item Value Reference Range Interpretation Comments Vanco Lvl (test code = Vanco Lvl) 15.2 [facility] CenterDispatch [id number] 09:04:00 Test Item Value Reference Range Interpretation Comments Glucose Lvl (test code = Glucose Lvl) 59 70-99 [facility] [id number] 09:04:00 Test Item Value Reference Range Interpretation Comments BUN (test code = BUN) 41 7-22 [place] 506282-07-18 09:04:00 Test Item Value Reference Range Interpretation Comments Creatinine Lvl (test code = Creatinine 7.00 0.50-1.40 Lvl) [place] [address]-07-18 09:04:00 Test Item Value Reference Range Interpretation Comments Sodium Lvl (test code = Sodium Lvl) 134 135-145 [place] 506282-07-18 09:04:00 Test Item Value Reference Range Interpretation Comments Potassium Lvl (test code = Potassium 4.0 3.5-5.1 Lvl) [place] 506282-07-18 09:04:00 Test Item Value Reference Range Interpretation Comments Chloride Lvl (test code = Chloride Lvl) 102 95-109 [place] [address]-07-18 09:04:00 Test Item Value Reference Range Interpretation Comments CO2 (test code = CO2) 25 24-32 [place] 506282-07-18 09:04:00 Test Item Value Reference Range Interpretation Comments Calcium Lvl (test code = Calcium Lvl) 9.1 8.5-10.5 [place] 506282-07-18 09:04:00 Test Item Value Reference Range Interpretation Comments Total Protein (test code = Total 6.2 6.4-8.4 Protein) [place] [address]-07-18 09:04:00 Test Item Value Reference Range Interpretation Comments Albumin Lvl (test code = Albumin Lvl) 2.8 3.5-5.0 [place] 506282-07-18 09:04:00 Test Item Value Reference Range Interpretation Comments ALT (test code = ALT) 78 See_Comment [Auto mated message] The system which Shineon nerated this result transmit swathi reference range : <=65. The reference range was not used to interpr et this result as deny l/abnormal. [place] [address]-07-18 09:04:00 Test Item Value Reference Range Interpretation Comments AST (test code = AST) 117 See_Comment [Auto mated message] The system which Shineon nerated this result transmit swathi reference range : <=37. The reference range was not used to interpr et this result as deny l/abnormal. [place] 506282-07-18 09:04:00 Test Item Value Reference Range Interpretation Comments Alk Phos (test code = Alk Phos) 251 39-136 [facility]2022-07-18 09:04:00 Test Item Value Reference Range Interpretation Comments Bili Total (test code = Bili Total) 0.9 0.2-1.3 [place] 506282-07-18 09:04:00 Test Item Value Reference Range Interpretation Comments AGAP (test code = AGAP) 11.0 10.0-20.0 [facility]2022-07-18 09:04:00 Test Item Value Reference Range Interpretation Comments B/C Ratio (test code = B/C Ratio) 6 1 6-25 [facility]2022-07-18 09:04:00 Test Item Value Reference Range Interpretation Comments Globulin (test code = Globulin) 3.4 2.7-4.2 [place] 506282-07-18 09:04:00 Test Item Value Reference Range Interpretation Comments A/G Ratio (test code = A/G Ratio) 0.8 1 0.7-1.6 [place] 506282-07-18 09:04:00 Test Item Value Reference Range Interpretation Comments eGFR (test code = eGFR) 8 [facility]ZmkxnikTHLYUXXSFL5175-96-88 09:04:00 Test Item Value Reference Range Interpretation Comments D-Dimer (test code = D-Dimer) 3.03 [facility] CampusHxfdvoeMBRZFHGSFV3833-21-56 09:04:00 Test Item Value Reference Range Interpretation Comments WBC (test code = WBC) 3.6 3.7-10.4 [place] 155092-07-18 09:04:00 Test Item Value Reference Range Interpretation Comments RBC (test code = RBC) 2.07 4.70-6.10 [place] 155092-07-18 09:04:00 Test Item Value Reference Range Interpretation Comments Hgb (test code = Hgb) 7.5 14.0-18.0 [place] [address]-07-18 09:04:00 Test Item Value Reference Range Interpretation Comments Hct (test code = Hct) 22.0 42.0-54.0 [place] 155092-07-18 09:04:00 Test Item Value Reference Range Interpretation Comments MCV (test code = MCV) 106.3 80.0-94.0 [place] [address]-07-18 09:04:00 Test Item Value Reference Range Interpretation Comments MCH (test code = MCH) 36.1 pg 27.0-31.0 [place] 155092-07-18 09:04:00 Test Item Value Reference Range Interpretation Comments MCHC (test code = MCHC) 33.9 32.0-36.0 [place] 155092-07-18 09:04:00 Test Item Value Reference Range Interpretation Comments RDW (test code = RDW) 23.9 11.5-14.5 [place] 155092-07-18 09:04:00 Test Item Value Reference Range Interpretation Comments Platelet (test code = Platelet) 133 133-450 [place] 155092-07-18 09:04:00 Test Item Value Reference Range Interpretation Comments MPV (test code = MPV) 8.1 7.4-10.4 [place] 155092-07-18 09:04:00 Test Item Value Reference Range Interpretation Comments Segs (test code = Segs) 60.8 45.0-75.0 [place] 155092-07-18 09:04:00 Test Item Value Reference Range Interpretation Comments Lymphocytes (test code = Lymphocytes) 22.3 20.0-40.0 [place] 155092-07-18 09:04:00 Test Item Value Reference Range Interpretation Comments Monocytes (test code = Monocytes) 13.9 2.0-12.0 [place] 155092-07-18 09:04:00 Test Item Value Reference Range Interpretation Comments Eosinophils (test code = 2.6 See_Comment [A utomated message] The Eosinophils) system which ge nerated this result tra nsmitted reference range : <=4.0. The reference r samantha was not used to int erpret this result as normal/abnormal . [place] 155092-07-18 09:04:00 Test Item Value Reference Range Interpretation Comments Basophils (test code = 0.4 See_Comment [Aut omated message] The Basophils) system which ge nerated this result tra nsmitted reference range : <=1.0. The reference r samantha was not used to int erpret this result as normal/abnormal . [place] 155092-07-18 09:04:00 Test Item Value Reference Range Interpretation Comments Neutrophils # (test code = Neutrophils 2.2 1.5-8.1 #) [facility] CenterMkaqwxqFNOXCUESUJ9450-53-20 09:04:00 Test Item Value Reference Range Interpretation Comments Lymphocytes # (test code = Lymphocytes 0.8 1.0-5.5 #) [facility]57[facility]71 09:04:00 Test Item Value Reference Range Interpretation Comments Monocytes # (test code 0.5 See_Comment [Aut omated message] The = Monocytes #) system which generated this result tra nsmitted reference range : <=0.8. The reference r samantha was not used to int erpret this result as normal/abnormal . [facility] HospitalFyrryffRRKTGEYVOJ3475-22-26 09:04:00 Test Item Value Reference Range Interpretation Comments Eosinophils # (test code 0.1 See_Comment [A utomated message] The = Eosinophils #) system whic h generated this result tra nsmitted reference range : <=0.5. The reference r samantha was not used to int erpret this result as normal/abnormal . [facility] CenterIfyapmzFPBDTALQOD2880-10-30 09:04:00 Test Item Value Reference Range Interpretation Comments Macrocyte (test code = 1+ *ABN*(12/15/21 Macrocyte) 4:04 AM) [facility] CenterGoujwppVELJKYPJPV3575-23-92 09:04:00 Test Item Value Reference Range Interpretation Comments C-REACTIVE PROTEIN (test code = 25.1 C-REACTIVE PROTEIN) [facility] CenterOhorsfiZQRUPUWJBX1217-50-14 09:04:00 Test Item Value Reference Range Interpretation Comments Vanco Lvl (test code = Vanco Lvl) 15.2 [facility] CenterannBACTERIAL - [id number] 00:29:00 Test Item Value Reference Range Interpretation Comments MRSA by PCR (test Negative (12/14/21 7:29 code = MRSA by PCR) PM) [facility] CenterBACT[facility] - [id number] 00:29:00 Test Item Value Reference Range Interpretation Comments MRSA by PCR (test Negative (12/14/21 7:29 code = MRSA by PCR) PM) [facility] CenterBACT[facility] - [id number] 00:29:00 Test Item Value Reference Range Interpretation Comments MRSA by PCR (test Negative (12/14/21 7:29 code = MRSA by PCR) PM) [facility] CenterannBACTERIAL - [id number] 00:29:00 Test Item Value Reference Range Interpretation Comments MRSA by PCR (test Negative (12/14/21 7:29 code = MRSA by PCR) PM) [facility] CenterannBACTERIAL - [id number] 00:29:00 Test Item Value Reference Range Interpretation Comments MRSA by PCR (test Negative (12/14/21 7:29 code = MRSA by PCR) PM) [facility]annBACTERIAL - [id number] 00:29:00 Test Item Value Reference Range Interpretation Comments MRSA by PCR (test Negative (12/14/21 7:29 code = MRSA by PCR) PM) [facility]annBACTERIAL - [id number] 00:29:00 Test Item Value Reference Range Interpretation Comments MRSA by PCR (test Negative (12/14/21 7:29 code = MRSA by PCR) PM) [facility]annBACTERIAL - [id number] 00:29:00 Test Item Value Reference Range Interpretation Comments MRSA by PCR (test Negative (12/14/21 7:29 code = MRSA by PCR) PM) [facility]annBACT[facility] - [id number] 00:29:00 Test Item Value Reference Range Interpretation Comments MRSA by PCR (test Negative (12/14/21 7:29 code = MRSA by PCR) PM) [facility]annBACT[facility] - [id number] 00:29:00 Test Item Value Reference Range Interpretation Comments MRSA by PCR (test Negative (12/14/21 7:29 code = MRSA by PCR) PM) [facility]annBACT[facility] - [id number] 00:29:00 Test Item Value Reference Range Interpretation Comments MRSA by PCR (test Negative (12/14/21 7:29 code = MRSA by PCR) PM) [facility]annBACT[facility] - [id number] 00:29:00 Test Item Value Reference Range Interpretation Comments MRSA by PCR (test Negative (12/14/21 7:29 code = MRSA by PCR) PM) [facility] CenterMOLECULAR [id number] 23:56:00 Test Item Value Reference Range Interpretation Comments Source Respiratory Nasophrngl Swb Panel PCR (test code = *NA*(12/14/21 6:56 PM) Source Respiratory Panel PCR) [facility] CenterannWILECULAR [id number] 23:56:00 Test Item Value Reference Range Interpretation Comments Influenza A PCR (test Negative (12/14/21 6:56 code = Influenza A PCR) PM) [facility] CenterannWILECOHIOHEALTH [id number] 23:56:00 Test Item Value Reference Range Interpretation Comments Influenza B PCR (test Negative (12/14/21 6:56 code = Influenza B PCR) PM) [facility]annWILECULAR [id number] 23:56:00 Test Item Value Reference Range Interpretation Comments RSV PCR (test code = Negative (12/14/21 6:56 RSV PCR) PM) [facility] [id number] 23:56:00 Test Item Value Reference Range Interpretation Comments Source Respiratory Nasophrngl Swb Panel PCR (test code = *NA*(12/14/21 6:56 PM) Source Respiratory Panel PCR) [facility] [id number] 23:56:00 Test Item Value Reference Range Interpretation Comments Influenza A PCR (test Negative (12/14/21 6:56 code = Influenza A PCR) PM) [facility]annWILECOHIOHEALTH [id number] 23:56:00 Test Item Value Reference Range Interpretation Comments Influenza B PCR (test Negative (12/14/21 6:56 code = Influenza B PCR) PM) [facility] [id number] 23:56:00 Test Item Value Reference Range Interpretation Comments RSV PCR (test code = Negative (12/14/21 6:56 RSV PCR) PM) [facility] [id number] 23:56:00 Test Item Value Reference Range Interpretation Comments Source Respiratory Nasophrngl Swb Panel PCR (test code = *NA*(12/14/21 6:56 PM) Source Respiratory Panel PCR) [facility] [id number] 23:56:00 Test Item Value Reference Range Interpretation Comments Influenza A PCR (test Negative (12/14/21 6:56 code = Influenza A PCR) PM) [facility] [id number] 23:56:00 Test Item Value Reference Range Interpretation Comments Influenza B PCR (test Negative (12/14/21 6:56 code = Influenza B PCR) PM) [facility]annWILECULAR [id number] 23:56:00 Test Item Value Reference Range Interpretation Comments RSV PCR (test code = Negative (12/14/21 6:56 RSV PCR) PM) [facility]annWILE[facility]ULAR [id number] 23:56:00 Test Item Value Reference Range Interpretation Comments Source Respiratory Nasophrngl Swb Panel PCR (test code = *NA*(12/14/21 6:56 PM) Source Respiratory Panel PCR) [facility]annWILECULAR [id number] 23:56:00 Test Item Value Reference Range Interpretation Comments Influenza A PCR (test Negative (12/14/21 6:56 code = Influenza A PCR) PM) [facility]annWILE[facility]ULAR [id number] 23:56:00 Test Item Value Reference Range Interpretation Comments Influenza B PCR (test Negative (12/14/21 6:56 code = Influenza B PCR) PM) [facility]annWILECULAR [id number] 23:56:00 Test Item Value Reference Range Interpretation Comments RSV PCR (test code = Negative (12/14/21 6:56 RSV PCR) PM) [facility]annW[facility] [id number] 23:56:00 Test Item Value Reference Range Interpretation Comments Source Respiratory Nasophrngl Swb Panel PCR (test code = *NA*(12/14/21 6:56 PM) Source Respiratory Panel PCR) [facility]annWILECOHIOHEALTH [id number] 23:56:00 Test Item Value Reference Range Interpretation Comments Influenza A PCR (test Negative (12/14/21 6:56 code = Influenza A PCR) PM) [facility]annW[facility] [id number] 23:56:00 Test Item Value Reference Range Interpretation Comments Influenza B PCR (test Negative (12/14/21 6:56 code = Influenza B PCR) PM) [facility]annWILE[facility] [id number] 23:56:00 Test Item Value Reference Range Interpretation Comments RSV PCR (test code = Negative (12/14/21 6:56 RSV PCR) PM) [facility]annWILE[facility] [id number] 23:56:00 Test Item Value Reference Range Interpretation Comments Source Respiratory Nasophrngl Swb Panel PCR (test code = *NA*(12/14/21 6:56 PM) Source Respiratory Panel PCR) [facility]annWILE[facility] [id number] 23:56:00 Test Item Value Reference Range Interpretation Comments Influenza A PCR (test Negative (12/14/21 6:56 code = Influenza A PCR) PM) [facility] [id number] 23:56:00 Test Item Value Reference Range Interpretation Comments Influenza B PCR (test Negative (12/14/21 6:56 code = Influenza B PCR) PM) [facility]annWILE[facility] [id number] 23:56:00 Test Item Value Reference Range Interpretation Comments RSV PCR (test code = Negative (12/14/21 6:56 RSV PCR) PM) [facility]annWILECOHIOHEALTH [id number] 23:56:00 Test Item Value Reference Range Interpretation Comments Source Respiratory Nasophrngl Swb Panel PCR (test code = *NA*(12/14/21 6:56 PM) Source Respiratory Panel PCR) [facility]annWILECOHIOHE[facility] [id number] 23:56:00 Test Item Value Reference Range Interpretation Comments Influenza A PCR (test Negative (12/14/21 6:56 code = Influenza A PCR) PM) [facility]annWILE[facility] [id number] 23:56:00 Test Item Value Reference Range Interpretation Comments Influenza B PCR (test Negative (12/14/21 6:56 code = Influenza B PCR) PM) [facility]annWILECOHIO[facility] [id number] 23:56:00 Test Item Value Reference Range Interpretation Comments RSV PCR (test code = Negative (12/14/21 6:56 RSV PCR) PM) [facility]annW[facility] [id number] 23:56:00 Test Item Value Reference Range Interpretation Comments Source Respiratory Nasophrngl Swb Panel PCR (test code = *NA*(12/14/21 6:56 PM) Source Respiratory Panel PCR) [facility]annWILECOHIOHEALTH [id number] 23:56:00 Test Item Value Reference Range Interpretation Comments Influenza A PCR (test Negative (12/14/21 6:56 code = Influenza A PCR) PM) [facility] [id number] 23:56:00 Test Item Value Reference Range Interpretation Comments Influenza B PCR (test Negative (12/14/21 6:56 code = Influenza B PCR) PM) [facility]annWILE[facility] [id number] 23:56:00 Test Item Value Reference Range Interpretation Comments RSV PCR (test code = Negative (12/14/21 6:56 RSV PCR) PM) [facility]annW[facility] [id number] 23:56:00 Test Item Value Reference Range Interpretation Comments Source Respiratory Nasophrngl Swb Panel PCR (test code = *NA*(12/14/21 6:56 PM) Source Respiratory Panel PCR) [facility] [id number] 23:56:00 Test Item Value Reference Range Interpretation Comments Influenza A PCR (test Negative (12/14/21 6:56 code = Influenza A PCR) PM) [facility] [id number] 23:56:00 Test Item Value Reference Range Interpretation Comments Influenza B PCR (test Negative (12/14/21 6:56 code = Influenza B PCR) PM) [facility]CO[facility]IO[facility] [id number] 23:56:00 Test Item Value Reference Range Interpretation Comments RSV PCR (test code = Negative (12/14/21 6:56 RSV PCR) PM) [facility]annW[facility] [id number] 23:56:00 Test Item Value Reference Range Interpretation Comments Source Respiratory Nasophrngl Swb Panel PCR (test code = *NA*(12/14/21 6:56 PM) Source Respiratory Panel PCR) [facility]IO[facility] [id number] 23:56:00 Test Item Value Reference Range Interpretation Comments Influenza A PCR (test Negative (12/14/21 6:56 code = Influenza A PCR) PM) [facility] [id number] 23:56:00 Test Item Value Reference Range Interpretation Comments Influenza B PCR (test Negative (12/14/21 6:56 code = Influenza B PCR) PM) [facility] [id number] 23:56:00 Test Item Value Reference Range Interpretation Comments RSV PCR (test code = Negative (12/14/21 6:56 RSV PCR) PM) [facility] [id number] 23:56:00 Test Item Value Reference Range Interpretation Comments Source Respiratory Nasophrngl Swb Panel PCR (test code = *NA*(12/14/21 6:56 PM) Source Respiratory Panel PCR) [facility] HermannMOLECULAR [id number] 23:56:00 Test Item Value Reference Range Interpretation Comments Influenza A PCR (test Negative (12/14/21 6:56 code = Influenza A PCR) PM) [facility] HermannMOLECULAR [id number] 23:56:00 Test Item Value Reference Range Interpretation Comments Influenza B PCR (test Negative (12/14/21 6:56 code = Influenza B PCR) PM) [facility] [id number] 23:56:00 Test Item Value Reference Range Interpretation Comments RSV PCR (test code = Negative (12/14/21 6:56 RSV PCR) PM) [facility] [id number] 23:56:00 Test Item Value Reference Range Interpretation Comments Source Respiratory Nasophrngl Swb Panel PCR (test code = *NA*(12/14/21 6:56 PM) Source Respiratory Panel PCR) [facility] [id number] 23:56:00 Test Item Value Reference Range Interpretation Comments Influenza A PCR (test Negative (12/14/21 6:56 code = Influenza A PCR) PM) [facility] [id number] 23:56:00 Test Item Value Reference Range Interpretation Comments Influenza B PCR (test Negative (12/14/21 6:56 code = Influenza B PCR) PM) [facility] [id number] 23:56:00 Test Item Value Reference Range Interpretation Comments RSV PCR (test code = Negative (12/14/21 6:56 RSV PCR) PM) [facility]annCARDIAC [id number] 23:55:00 Test Item Value Reference Range Interpretation Comments BNP (test code = BNP) 1994 [facility]annCHEM [id number] 23:55:00 Test Item Value Reference Range Interpretation Comments Procalcitonin Lvl (test 0.80 See_Comment [Au tomated message] code = Procalcitonin Lvl) Th e system which generated this result transmitted ref erence range: <=0.10. The reference range was not used to interpr et this result as normal/abnormal . [facility] HermannCARDIAC [id number] 23:55:00 Test Item Value Reference Range Interpretation Comments BNP (test code = BNP) 1994 [facility] [employer] [id number] 23:55:00 Test Item Value Reference Range Interpretation Comments Procalcitonin Lvl (test 0.80 See_Comment [Au tomated message] code = Procalcitonin Lvl) Th e system which generated this result transmitted ref erence range: <=0.10. The reference range was not used to interpr et this result as normal/abnormal . [facility] [employer] [id number] 23:55:00 Test Item Value Reference Range Interpretation Comments BNP (test code = BNP) 1994 [facility] [employer] [id number] 23:55:00 Test Item Value Reference Range Interpretation Comments Procalcitonin Lvl (test 0.80 See_Comment [Au tomated message] code = Procalcitonin Lvl) Th e system which generated this result transmitted ref erence range: <=0.10. The reference range was not used to interpr et this result as normal/abnormal . [facility] [employer]2022-07-17 23:55:00 Test Item Value Reference Range Interpretation Comments BNP (test code = BNP) 1994 [facility] [employer] [id number] 23:55:00 Test Item Value Reference Range Interpretation Comments Procalcitonin Lvl (test 0.80 See_Comment [Au tomated message] code = Procalcitonin Lvl) Th e system which generated this result transmitted ref erence range: <=0.10. The reference range was not used to interpr et this result as normal/abnormal . [facility] [employer]2022-07-17 23:55:00 Test Item Value Reference Range Interpretation Comments BNP (test code = BNP) 1994 [facility] [employer] [id number] 23:55:00 Test Item Value Reference Range Interpretation Comments Procalcitonin Lvl (test 0.80 See_Comment [Au tomated message] code = Procalcitonin Lvl) Th e system which generated this result transmitted ref erence range: <=0.10. The reference range was not used to interpr et this result as normal/abnormal . [facility] [employer]2022-07-17 23:55:00 Test Item Value Reference Range Interpretation Comments BNP (test code = BNP) 1994 [facility] [employer] [id number] 23:55:00 Test Item Value Reference Range Interpretation Comments Procalcitonin Lvl (test 0.80 See_Comment [Au tomated message] code = Procalcitonin Lvl) Th e system which generated this result transmitted ref erence range: <=0.10. The reference range was not used to interpr et this result as normal/abnormal . [facility] [employer]2022-07-17 23:55:00 Test Item Value Reference Range Interpretation Comments BNP (test code = BNP) 1994 [facility] [id number] 23:55:00 Test Item Value Reference Range Interpretation Comments Procalcitonin Lvl (test 0.80 See_Comment [Au tomated message] code = Procalcitonin Lvl) e system which generated this result transmitted ref erence range: <=0.10. The reference range was not used to interpr et this result as normal/abnormal . [facility] [employer]2022-07-17 23:55:00 Test Item Value Reference Range Interpretation Comments BNP (test code = BNP) 1994 [facility] [employer] [id number] 23:55:00 Test Item Value Reference Range Interpretation Comments Procalcitonin Lvl (test 0.80 See_Comment [Au tomated message] code = Procalcitonin Lvl) Th e system which generated this result transmitted ref erence range: <=0.10. The reference range was not used to interpr et this result as normal/abnormal . [facility] [employer]2022-07-17 23:55:00 Test Item Value Reference Range Interpretation Comments BNP (test code = BNP) 1994 [facility] [employer] [id number] 23:55:00 Test Item Value Reference Range Interpretation Comments Procalcitonin Lvl (test 0.80 See_Comment [Au tomated message] code = Procalcitonin Lvl) Th e system which generated this result transmitted ref erence range: <=0.10. The reference range was not used to interpr et this result as normal/abnormal . [facility] [employer]2022-07-17 23:55:00 Test Item Value Reference Range Interpretation Comments BNP (test code = BNP) 1994 [facility] [employer] [id number] 23:55:00 Test Item Value Reference Range Interpretation Comments Procalcitonin Lvl (test 0.80 See_Comment [Au tomated message] code = Procalcitonin Lvl) e system which generated this result transmitted ref erence range: <=0.10. The reference range was not used to interpr et this result as normal/abnormal . [facility] [employer]2022-07-17 23:55:00 Test Item Value Reference Range Interpretation Comments BNP (test code = BNP) 1994 [facility] [employer] [id number] 23:55:00 Test Item Value Reference Range Interpretation Comments Procalcitonin Lvl (test 0.80 See_Comment [Au tomated message] code = Procalcitonin Lvl) e system which generated this result transmitted ref erence range: <=0.10. The reference range was not used to interpr et this result as normal/abnormal . [facility] [employer]2022-07-17 23:55:00 Test Item Value Reference Range Interpretation Comments BNP (test code = BNP) 1994 [facility] [employer] [id number] 23:55:00 Test Item Value Reference Range Interpretation Comments Procalcitonin Lvl (test 0.80 See_Comment [Au tomated message] code = Procalcitonin Lvl) e system which generated this result transmitted ref erence range: <=0.10. The reference range was not used to interpr et this result as normal/abnormal . [facility] [employer]2022-07-17 21:26:00 Test Item Value Reference Range Interpretation Comments HS Troponin I 1 Hr (test code = HS 389 Troponin I 1 Hr) [facility] 21:26:00 Test Item Value Reference Range Interpretation Comments HS Troponin I 0 to 1 Hour Delta (test 49 1 code = HS Troponin I 0 to 1 Hour Delta) [facility] [employer]2022-07-17 21:26:00 Test Item Value Reference Range Interpretation Comments HS Troponin I 1 Hr (test code = HS 389 Troponin I 1 Hr) [facility] [employer]2022-07-17 21:26:00 Test Item Value Reference Range Interpretation Comments HS Troponin I 0 to 1 Hour Delta (test 49 1 code = HS Troponin I 0 to 1 Hour Delta) [facility] [employer] [id number] 21:26:00 Test Item Value Reference Range Interpretation Comments HS Troponin I 1 Hr (test code = HS 389 Troponin I 1 Hr) [facility] [employer] [id number] 21:26:00 Test Item Value Reference Range Interpretation Comments HS Troponin I 0 to 1 Hour Delta (test 49 1 code = HS Troponin I 0 to 1 Hour Delta) [facility] [id number] 21:26:00 Test Item Value Reference Range Interpretation Comments HS Troponin I 1 Hr (test code = HS 389 Troponin I 1 Hr) [facility] [employer] [id number] 21:26:00 Test Item Value Reference Range Interpretation Comments HS Troponin I 0 to 1 Hour Delta (test 49 1 code = HS Troponin I 0 to 1 Hour Delta) [facility] [id number] 21:26:00 Test Item Value Reference Range Interpretation Comments HS Troponin I 1 Hr (test code = HS 389 Troponin I 1 Hr) [facility] [id number] 21:26:00 Test Item Value Reference Range Interpretation Comments HS Troponin I 0 to 1 Hour Delta (test 49 1 code = HS Troponin I 0 to 1 Hour Delta) [facility] [id number] 21:26:00 Test Item Value Reference Range Interpretation Comments HS Troponin I 1 Hr (test code = HS 389 Troponin I 1 Hr) [facility] [id number] 21:26:00 Test Item Value Reference Range Interpretation Comments HS Troponin I 0 to 1 Hour Delta (test 49 1 code = HS Troponin I 0 to 1 Hour Delta) [facility] [id number] 21:26:00 Test Item Value Reference Range Interpretation Comments HS Troponin I 1 Hr (test code = HS 389 Troponin I 1 Hr) [facility] [id number] 21:26:00 Test Item Value Reference Range Interpretation Comments HS Troponin I 0 to 1 Hour Delta (test 49 1 code = HS Troponin I 0 to 1 Hour Delta) [facility] [id number] 21:26:00 Test Item Value Reference Range Interpretation Comments HS Troponin I 1 Hr (test code = HS 389 Troponin I 1 Hr) [facility] [id number] 21:26:00 Test Item Value Reference Range Interpretation Comments HS Troponin I 0 to 1 Hour Delta (test 49 1 code = HS Troponin I 0 to 1 Hour Delta) [facility] [employer]annCARDIAC [id number] 21:26:00 Test Item Value Reference Range Interpretation Comments HS Troponin I 1 Hr (test code = HS 389 Troponin I 1 Hr) [facility] Wow[employer]annCARStryking EntertainmentAC [id number] 21:26:00 Test Item Value Reference Range Interpretation Comments HS Troponin I 0 to 1 Hour Delta (test 49 1 code = HS Troponin I 0 to 1 Hour Delta) [facility] WowoannCARStryking EntertainmentAC [id number] 21:26:00 Test Item Value Reference Range Interpretation Comments HS Troponin I 1 Hr (test code = HS 389 Troponin I 1 Hr) [facility] [employer] LionsCARStryking EntertainmentAC [id number] 21:26:00 Test Item Value Reference Range Interpretation Comments HS Troponin I 0 to 1 Hour Delta (test 49 1 code = HS Troponin I 0 to 1 Hour Delta) [facility] [employer] [id number] 21:26:00 Test Item Value Reference Range Interpretation Comments HS Troponin I 1 Hr (test code = HS 389 Troponin I 1 Hr) [facility] [employer] [id number] 21:26:00 Test Item Value Reference Range Interpretation Comments HS Troponin I 0 to 1 Hour Delta (test 49 1 code = HS Troponin I 0 to 1 Hour Delta) [facility] [employer] [id number] 21:26:00 Test Item Value Reference Range Interpretation Comments HS Troponin I 1 Hr (test code = HS 389 Troponin I 1 Hr) [facility] [employer] [id number] 21:26:00 Test Item Value Reference Range Interpretation Comments HS Troponin I 0 to 1 Hour Delta (test 49 1 code = HS Troponin I 0 to 1 Hour Delta) [facility] [employer] [id number] 20:10:00 Test Item Value Reference Range Interpretation Comments HS Troponin I Baseline (test code = HS 340 Troponin I Baseline) [facility] [employer] [id number] 20:10:00 Test Item Value Reference Range Interpretation Comments Glucose Lvl (test code = Glucose Lvl) 60 70-99 [facility] [employer] [id number] 20:10:00 Test Item Value Reference Range Interpretation Comments BUN (test code = BUN) 35 7-22 [place] 506282-07-17 20:10:00 Test Item Value Reference Range Interpretation Comments Creatinine Lvl (test code = Creatinine 6.10 0.50-1.40 Lvl) [place]282-07-17 20:10:00 Test Item Value Reference Range Interpretation Comments Sodium Lvl (test code = Sodium Lvl) 139 135-145 [place] 506282-07-17 20:10:00 Test Item Value Reference Range Interpretation Comments Potassium Lvl (test code = Potassium 3.1 3.5-5.1 Lvl) [place] 506282-07-17 20:10:00 Test Item Value Reference Range Interpretation Comments Chloride Lvl (test code = Chloride Lvl) 105 95-109 [place] 506282-07-17 20:10:00 Test Item Value Reference Range Interpretation Comments CO2 (test code = CO2) 28 24-32 [place] 506282-07-17 20:10:00 Test Item Value Reference Range Interpretation Comments Calcium Lvl (test code = Calcium Lvl) 8.1 8.5-10.5 [place] 506282-07-17 20:10:00 Test Item Value Reference Range Interpretation Comments Total Protein (test code = Total 5.8 6.4-8.4 Protein) [place] 506282-07-17 20:10:00 Test Item Value Reference Range Interpretation Comments Albumin Lvl (test code = Albumin Lvl) 2.6 3.5-5.0 [place] [address]-07-17 20:10:00 Test Item Value Reference Range Interpretation Comments ALT (test code = ALT) 74 See_Comment [Auto mated message] The system which ge nerated this result transmit swathi reference range : <=65. The reference range was not used to interpr et this result as deny l/abnormal. [place] [address]-07-17 20:10:00 Test Item Value Reference Range Interpretation Comments AST (test code = AST) 117 See_Comment [Auto mated message] The system which ge nerated this result transmit swathi reference range : <=37. The reference range was not used to interpr et this result as deny l/abnormal. [address]07-17 20:10:00 Test Item Value Reference Range Interpretation Comments Alk Phos (test code = Alk Phos) 241 39-136 [place] 506282-07-17 20:10:00 Test Item Value Reference Range Interpretation Comments Bili Total (test code = Bili Total) 0.8 0.2-1.3 [place] 506282-07-17 20:10:00 Test Item Value Reference Range Interpretation Comments AGAP (test code = AGAP) 9.1 10.0-20.0 [facility]2022-07-17 20:10:00 Test Item Value Reference Range Interpretation Comments B/C Ratio (test code = B/C Ratio) 6 1 6-25 [place] 506282-07-17 20:10:00 Test Item Value Reference Range Interpretation Comments Globulin (test code = Globulin) 3.2 2.7-4.2 [place] 506282-07-17 20:10:00 Test Item Value Reference Range Interpretation Comments A/G Ratio (test code = A/G Ratio) 0.8 1 0.7-1.6 [place] 506282-07-17 20:10:00 Test Item Value Reference Range Interpretation Comments eGFR (test code = eGFR) 9 [id number] 20:10:00 Test Item Value Reference Range Interpretation Comments WBC (test code = WBC) 4.3 3.7-10.4 [place] 155092-07-17 20:10:00 Test Item Value Reference Range Interpretation Comments RBC (test code = RBC) 2.17 4.70-6.10 [place] 155092-07-17 20:10:00 Test Item Value Reference Range Interpretation Comments Hgb (test code = Hgb) 7.7 14.0-18.0 [place] [address]-07-17 20:10:00 Test Item Value Reference Range Interpretation Comments Hct (test code = Hct) 22.9 42.0-54.0 [place] [address]-07-17 20:10:00 Test Item Value Reference Range Interpretation Comments MCV (test code = MCV) 105.9 80.0-94.0 [place] 155092-07-17 20:10:00 Test Item Value Reference Range Interpretation Comments MCH (test code = MCH) 35.4 pg 27.0-31.0 [facility] CampusZgunkrrPOEJCJOYTY5181-64-72 20:10:00 Test Item Value Reference Range Interpretation Comments MCHC (test code = MCHC) 33.4 32.0-36.0 [place] 155092-07-17 20:10:00 Test Item Value Reference Range Interpretation Comments RDW (test code = RDW) 23.6 11.5-14.5 [facility] C[id number] 20:10:00 Test Item Value Reference Range Interpretation Comments Platelet (test code = Platelet) 146 133-450 [facility] CampusYvbmaugKHROANFHNW8437-75-98 20:10:00 Test Item Value Reference Range Interpretation Comments MPV (test code = MPV) 8.0 7.4-10.4 [place] 155092-07-17 20:10:00 Test Item Value Reference Range Interpretation Comments Plt Morph (test code = Normal (12/14/21 3:10 Plt Morph) PM) [facility] CampusNawvirlMWFIZLCBQI6863-58-41 20:10:00 Test Item Value Reference Range Interpretation Comments Segs (test code = Segs) 67.4 45.0-75.0 [facility] CampusRuqrlqnLXPBFHFNZL0754-66-09 20:10:00 Test Item Value Reference Range Interpretation Comments Lymphocytes (test code = Lymphocytes) 12.8 20.0-40.0 [place] 155092-07-17 20:10:00 Test Item Value Reference Range Interpretation Comments Monocytes (test code = Monocytes) 15.1 2.0-12.0 [place] 155092-07-17 20:10:00 Test Item Value Reference Range Interpretation Comments Eosinophils (test code = 4.1 See_Comment [A utomated message] The Eosinophils) system which ge nerated this result tra nsmitted reference range : <=4.0. The reference r samantha was not used to int erpret this result as normal/abnormal . [place] 155092-07-17 20:10:00 Test Item Value Reference Range Interpretation Comments Basophils (test code = 0.6 See_Comment [Aut omated message] The Basophils) system which ge nerated this result tra nsmitted reference range : <=1.0. The reference r samantha was not used to int erpret this result as normal/abnormal . [facility] C[id number] 20:10:00 Test Item Value Reference Range Interpretation Comments Neutrophils # (test code = Neutrophils 2.9 1.5-8.1 #) [facility] CampusVzynzkxRAQDYGVMWL9532-56-46 20:10:00 Test Item Value Reference Range Interpretation Comments Lymphocytes # (test code = Lymphocytes 0.5 1.0-5.5 #) [facility] CampusAhqnnzpNNDXZRNQLO9378-92-38 20:10:00 Test Item Value Reference Range Interpretation Comments Monocytes # (test code 0.6 See_Comment [Aut omated message] The = Monocytes #) system which generated this result tra nsmitted reference range : <=0.8. The reference r samantha was not used to int erpret this result as normal/abnormal . [facility] CampusUrvnnyaBOZEKYFGIJ6028-86-73 20:10:00 Test Item Value Reference Range Interpretation Comments Eosinophils # (test code 0.2 See_Comment [A utomated message] The = Eosinophils #) system whic h generated this result tra nsmitted reference range : <=0.5. The reference r samantha was not used to int erpret this result as normal/abnormal . [facility] CampusJrbpydkFHPINHWYQR0954-37-38 20:10:00 Test Item Value Reference Range Interpretation Comments Anisocyte (test code = 1+ *ABN*(12/14/21 Anisocyte) 3:10 PM) [facility] CampusVwxpkxfUQGTEAUFWH1215-55-48 20:10:00 Test Item Value Reference Range Interpretation Comments Macrocyte (test code = 1+ *ABN*(12/14/21 Macrocyte) 3:10 PM) [facility] CenterYtnysowACNHKQIPPT3075-58-41 20:10:00 Test Item Value Reference Range Interpretation Comments Coronavirus (COVID-19) Detected MANUEL (test code = 4*ABN*(12/14/21 3:10 Coronavirus (COVID-19) PM) MANUEL) [facility] CenterC[facility] [id number] 20:10:00 Test Item Value Reference Range Interpretation Comments HS Troponin I Baseline (test code = HS 340 Troponin I Baseline) [facility] CenterYospace Technologies [id number] 20:10:00 Test Item Value Reference Range Interpretation Comments Glucose Lvl (test code = Glucose Lvl) 60 70-99 [facility] [place] [place] 657502-07-17 20:10:00 Test Item Value Reference Range Interpretation Comments BUN (test code = BUN) 35 7-22 [place] [address]-07-17 20:10:00 Test Item Value Reference Range Interpretation Comments Creatinine Lvl (test code = Creatinine 6.10 0.50-1.40 Lvl) [place] [address]-07-17 20:10:00 Test Item Value Reference Range Interpretation Comments Sodium Lvl (test code = Sodium Lvl) 139 135-145 [place] 506282-07-17 20:10:00 Test Item Value Reference Range Interpretation Comments Potassium Lvl (test code = Potassium 3.1 3.5-5.1 Lvl) [address]07-17 20:10:00 Test Item Value Reference Range Interpretation Comments Chloride Lvl (test code = Chloride Lvl) 105 95-109 [place] [address]-07-17 20:10:00 Test Item Value Reference Range Interpretation Comments CO2 (test code = CO2) 28 24-32 [place] [address]-07-17 20:10:00 Test Item Value Reference Range Interpretation Comments Calcium Lvl (test code = Calcium Lvl) 8.1 8.5-10.5 [place] [address]-07-17 20:10:00 Test Item Value Reference Range Interpretation Comments Total Protein (test code = Total 5.8 6.4-8.4 Protein) [address]07-17 20:10:00 Test Item Value Reference Range Interpretation Comments Albumin Lvl (test code = Albumin Lvl) 2.6 3.5-5.0 [place] [address]-07-17 20:10:00 Test Item Value Reference Range Interpretation Comments ALT (test code = ALT) 74 See_Comment [Auto mated message] The system which ge nerated this result transmit swathi reference range : <=65. The reference range was not used to interpr et this result as deny l/abnormal. [place] [address]-07-17 20:10:00 Test Item Value Reference Range Interpretation Comments AST (test code = AST) 117 See_Comment [Auto mated message] The system which ge nerated this result transmit swathi reference range : <=37. The reference range was not used to interpr et this result as deny l/abnormal. [facility]2022-07-17 20:10:00 Test Item Value Reference Range Interpretation Comments Alk Phos (test code = Alk Phos) 241 39-136 [facility]2022-07-17 20:10:00 Test Item Value Reference Range Interpretation Comments Bili Total (test code = Bili Total) 0.8 0.2-1.3 [facility]2022-07-17 20:10:00 Test Item Value Reference Range Interpretation Comments AGAP (test code = AGAP) 9.1 10.0-20.0 [facility]2022-07-17 20:10:00 Test Item Value Reference Range Interpretation Comments B/C Ratio (test code = B/C Ratio) 6 1 6-25 [place] 506282-07-17 20:10:00 Test Item Value Reference Range Interpretation Comments Globulin (test code = Globulin) 3.2 2.7-4.2 [facility]2022-07-17 20:10:00 Test Item Value Reference Range Interpretation Comments A/G Ratio (test code = A/G Ratio) 0.8 1 0.7-1.6 [facility]2022-07-17 20:10:00 Test Item Value Reference Range Interpretation Comments eGFR (test code = eGFR) 9 [facility] CampusSyzqpzcHETSOTAMRU9531-29-42 20:10:00 Test Item Value Reference Range Interpretation Comments WBC (test code = WBC) 4.3 3.7-10.4 [facility] CampusJhirhjvXXCIDMYQVJ0648-93-35 20:10:00 Test Item Value Reference Range Interpretation Comments RBC (test code = RBC) 2.17 4.70-6.10 [place] 155092-07-17 20:10:00 Test Item Value Reference Range Interpretation Comments Hgb (test code = Hgb) 7.7 14.0-18.0 [place] 155092-07-17 20:10:00 Test Item Value Reference Range Interpretation Comments Hct (test code = Hct) 22.9 42.0-54.0 [place] 155092-07-17 20:10:00 Test Item Value Reference Range Interpretation Comments MCV (test code = MCV) 105.9 80.0-94.0 [place] 155092-07-17 20:10:00 Test Item Value Reference Range Interpretation Comments MCH (test code = MCH) 35.4 pg 27.0-31.0 [facility] CampusNzhmcykNMZKBVVLWV9760-24-92 20:10:00 Test Item Value Reference Range Interpretation Comments MCHC (test code = MCHC) 33.4 32.0-36.0 [facility] CampusInmqstzTENSMATYQY5870-66-20 20:10:00 Test Item Value Reference Range Interpretation Comments RDW (test code = RDW) 23.6 11.5-14.5 [facility] CampusNknfvczDDTXVAJFUR8181-70-35 20:10:00 Test Item Value Reference Range Interpretation Comments Platelet (test code = Platelet) 146 133-450 [facility] CampusPsvjsqnBBCTJVXMOC9932-05-69 20:10:00 Test Item Value Reference Range Interpretation Comments MPV (test code = MPV) 8.0 7.4-10.4 [facility] CampusLtokrlwUDXPKGMJSZ6580-69-15 20:10:00 Test Item Value Reference Range Interpretation Comments Plt Morph (test code = Normal (12/14/21 3:10 Plt Morph) PM) [facility] CampusHgvkfttJQHUOGNHJT2638-75-16 20:10:00 Test Item Value Reference Range Interpretation Comments Segs (test code = Segs) 67.4 45.0-75.0 [facility] CampusGnqhrljOZVPJRNYYT0320-15-99 20:10:00 Test Item Value Reference Range Interpretation Comments Lymphocytes (test code = Lymphocytes) 12.8 20.0-40.0 [facility] CampusAiyeilyJYVOFGANFU7744-50-39 20:10:00 Test Item Value Reference Range Interpretation Comments Monocytes (test code = Monocytes) 15.1 2.0-12.0 [place] 155092-07-17 20:10:00 Test Item Value Reference Range Interpretation Comments Eosinophils (test code = 4.1 See_Comment [A utomated message] The Eosinophils) system which ge nerated this result tra nsmitted reference range : <=4.0. The reference r samantha was not used to int erpret this result as normal/abnormal . [facility] CampusMlvtlayGYLOWRYRCI3833-35-04 20:10:00 Test Item Value Reference Range Interpretation Comments Basophils (test code = 0.6 See_Comment [Aut omated message] The Basophils) system which ge nerated this result tra nsmitted reference range : <=1.0. The reference r samantha was not used to int erpret this result as normal/abnormal . [facility] CampusLjbloeeHEMZCDZOPU4572-29-76 20:10:00 Test Item Value Reference Range Interpretation Comments Neutrophils # (test code = Neutrophils 2.9 1.5-8.1 #) [facility] CampusTrlzegzCAWLPEBIJY7417-03-33 20:10:00 Test Item Value Reference Range Interpretation Comments Lymphocytes # (test code = Lymphocytes 0.5 1.0-5.5 #) [facility] CampusLicqnhfGPUJXJHTGK8789-40-38 20:10:00 Test Item Value Reference Range Interpretation Comments Monocytes # (test code 0.6 See_Comment [Aut omated message] The = Monocytes #) system which generated this result tra nsmitted reference range : <=0.8. The reference r samantha was not used to int erpret this result as normal/abnormal . [facility] CampusDrvmdhfZEFQTBJANH6914-08-98 20:10:00 Test Item Value Reference Range Interpretation Comments Eosinophils # (test code 0.2 See_Comment [A utomated message] The = Eosinophils #) system whic h generated this result tra nsmitted reference range : <=0.5. The reference r samantha was not used to int erpret this result as normal/abnormal . [facility] CampusXdelfydLOMVPDXEGV7755-86-14 20:10:00 Test Item Value Reference Range Interpretation Comments Anisocyte (test code = 1+ *ABN*(12/14/21 Anisocyte) 3:10 PM) [facility] CampusDgedpodIQPNEJQBOX3892-77-71 20:10:00 Test Item Value Reference Range Interpretation Comments Macrocyte (test code = 1+ *ABN*(12/14/21 Macrocyte) 3:10 PM) [facility] CenterDeeaewsTVPLKTQBRX8730-94-66 20:10:00 Test Item Value Reference Range Interpretation Comments Coronavirus (COVID-19) Detected MANUEL (test code = 4*ABN*(12/14/21 3:10 Coronavirus (COVID-19) PM) MANUEL) [facility] CenterC[facility] [id number] 20:10:00 Test Item Value Reference Range Interpretation Comments HS Troponin I Baseline (test code = HS 340 Troponin I Baseline) [facility] CenterCHEM [id number] 20:10:00 Test Item Value Reference Range Interpretation Comments Glucose Lvl (test code = Glucose Lvl) 60 70-99 [place] 506282-07-17 20:10:00 Test Item Value Reference Range Interpretation Comments BUN (test code = BUN) 35 7-22 [place] [address]-07-17 20:10:00 Test Item Value Reference Range Interpretation Comments Creatinine Lvl (test code = Creatinine 6.10 0.50-1.40 Lvl) [place] 506282-07-17 20:10:00 Test Item Value Reference Range Interpretation Comments Sodium Lvl (test code = Sodium Lvl) 139 135-145 [place] [address]-07-17 20:10:00 Test Item Value Reference Range Interpretation Comments Potassium Lvl (test code = Potassium 3.1 3.5-5.1 Lvl) [place] 506282-07-17 20:10:00 Test Item Value Reference Range Interpretation Comments Chloride Lvl (test code = Chloride Lvl) 105 95-109 [place] 506282-07-17 20:10:00 Test Item Value Reference Range Interpretation Comments CO2 (test code = CO2) 28 24-32 [place] 506282-07-17 20:10:00 Test Item Value Reference Range Interpretation Comments Calcium Lvl (test code = Calcium Lvl) 8.1 8.5-10.5 [place] [address]-07-17 20:10:00 Test Item Value Reference Range Interpretation Comments Total Protein (test code = Total 5.8 6.4-8.4 Protein) [place] 506282-07-17 20:10:00 Test Item Value Reference Range Interpretation Comments Albumin Lvl (test code = Albumin Lvl) 2.6 3.5-5.0 [place] 506282-07-17 20:10:00 Test Item Value Reference Range Interpretation Comments ALT (test code = ALT) 74 See_Comment [Auto mated message] The system which ge nerated this result transmit swathi reference range : <=65. The reference range was not used to interpr et this result as deny l/abnormal. [place] [address]-07-17 20:10:00 Test Item Value Reference Range Interpretation Comments AST (test code = AST) 117 See_Comment [Auto mated message] The system which ge nerated this result transmit swathi reference range : <=37. The reference range was not used to interpr et this result as deny l/abnormal. [place] 506282-07-17 20:10:00 Test Item Value Reference Range Interpretation Comments Alk Phos (test code = Alk Phos) 241 39-136 [place] 506282-07-17 20:10:00 Test Item Value Reference Range Interpretation Comments Bili Total (test code = Bili Total) 0.8 0.2-1.3 [place] 506282-07-17 20:10:00 Test Item Value Reference Range Interpretation Comments AGAP (test code = AGAP) 9.1 10.0-20.0 [place] 506282-07-17 20:10:00 Test Item Value Reference Range Interpretation Comments B/C Ratio (test code = B/C Ratio) 6 1 6-25 [place] [address]-07-17 20:10:00 Test Item Value Reference Range Interpretation Comments Globulin (test code = Globulin) 3.2 2.7-4.2 [place] 506282-07-17 20:10:00 Test Item Value Reference Range Interpretation Comments A/G Ratio (test code = A/G Ratio) 0.8 1 0.7-1.6 [place] 506282-07-17 20:10:00 Test Item Value Reference Range Interpretation Comments eGFR (test code = eGFR) 9 [facility]NsyjkcwMXITMDXFVI6698-55-41 20:10:00 Test Item Value Reference Range Interpretation Comments WBC (test code = WBC) 4.3 3.7-10.4 [place] 155092-07-17 20:10:00 Test Item Value Reference Range Interpretation Comments RBC (test code = RBC) 2.17 4.70-6.10 [place] [address]-07-17 20:10:00 Test Item Value Reference Range Interpretation Comments Hgb (test code = Hgb) 7.7 14.0-18.0 [place] [address]-07-17 20:10:00 Test Item Value Reference Range Interpretation Comments Hct (test code = Hct) 22.9 42.0-54.0 [place] [address]-07-17 20:10:00 Test Item Value Reference Range Interpretation Comments MCV (test code = MCV) 105.9 80.0-94.0 [place] 155092-07-17 20:10:00 Test Item Value Reference Range Interpretation Comments MCH (test code = MCH) 35.4 pg 27.0-31.0 [facility] CampusMilcobyRZKUYNHPBW9942-65-78 20:10:00 Test Item Value Reference Range Interpretation Comments MCHC (test code = MCHC) 33.4 32.0-36.0 [facility] CampusQqqttguKDINJZDRKA8592-12-44 20:10:00 Test Item Value Reference Range Interpretation Comments RDW (test code = RDW) 23.6 11.5-14.5 [place] 155092-07-17 20:10:00 Test Item Value Reference Range Interpretation Comments Platelet (test code = Platelet) 146 133-450 [facility] CampusKmskfdfYSZGBDNZDB4669-41-94 20:10:00 Test Item Value Reference Range Interpretation Comments MPV (test code = MPV) 8.0 7.4-10.4 [place] 155092-07-17 20:10:00 Test Item Value Reference Range Interpretation Comments Plt Morph (test code = Normal (12/14/21 3:10 Plt Morph) PM) [facility] CampusQrlsmwzEQNJMDRNXY9737-72-07 20:10:00 Test Item Value Reference Range Interpretation Comments Segs (test code = Segs) 67.4 45.0-75.0 [facility] CampusEcshgdxNMVIPYEUFO7021-03-11 20:10:00 Test Item Value Reference Range Interpretation Comments Lymphocytes (test code = Lymphocytes) 12.8 20.0-40.0 [facility] CampusQvqndezQSVAWMFBNC3347-10-34 20:10:00 Test Item Value Reference Range Interpretation Comments Monocytes (test code = Monocytes) 15.1 2.0-12.0 [place] 155092-07-17 20:10:00 Test Item Value Reference Range Interpretation Comments Eosinophils (test code = 4.1 See_Comment [A utomated message] The Eosinophils) system which ge nerated this result tra nsmitted reference range : <=4.0. The reference r samantha was not used to int erpret this result as normal/abnormal . [place] 155092-07-17 20:10:00 Test Item Value Reference Range Interpretation Comments Basophils (test code = 0.6 See_Comment [Aut omated message] The Basophils) system which ge nerated this result tra nsmitted reference range : <=1.0. The reference r samantha was not used to int erpret this result as normal/abnormal . [facility] CampusJsbewlfOJQCWYMWVU7433-58-70 20:10:00 Test Item Value Reference Range Interpretation Comments Neutrophils # (test code = Neutrophils 2.9 1.5-8.1 #) [facility] CampusBepkrkpMONEWTWXDW7729-73-24 20:10:00 Test Item Value Reference Range Interpretation Comments Lymphocytes # (test code = Lymphocytes 0.5 1.0-5.5 #) [facility] CampusEdxxsxqPXVBKKMSEW6628-76-82 20:10:00 Test Item Value Reference Range Interpretation Comments Monocytes # (test code 0.6 See_Comment [Aut omated message] The = Monocytes #) system which generated this result tra nsmitted reference range : <=0.8. The reference r samantha was not used to int erpret this result as normal/abnormal . [facility] CampusGlfelsoTPRARSSYWB4068-18-48 20:10:00 Test Item Value Reference Range Interpretation Comments Eosinophils # (test code 0.2 See_Comment [A utomated message] The = Eosinophils #) system whic h generated this result tra nsmitted reference range : <=0.5. The reference r samantha was not used to int erpret this result as normal/abnormal . [facility] CampusAcezhyjDQMFGAVBDF5215-32-91 20:10:00 Test Item Value Reference Range Interpretation Comments Anisocyte (test code = 1+ *ABN*(12/14/21 Anisocyte) 3:10 PM) [facility] CampusJusutraXLIOIAOCHR2712-13-07 20:10:00 Test Item Value Reference Range Interpretation Comments Macrocyte (test code = 1+ *ABN*(12/14/21 Macrocyte) 3:10 PM) [facility] CenterRoujathHYFRGQCCJC6106-76-83 20:10:00 Test Item Value Reference Range Interpretation Comments Coronavirus (COVID-19) Detected MANUEL (test code = 4*ABN*(12/14/21 3:10 Coronavirus (COVID-19) PM) MANUEL) [facility] CenterCARDIAC [id number] 20:10:00 Test Item Value Reference Range Interpretation Comments HS Troponin I Baseline (test code = HS 340 Troponin I Baseline) [facility] CenterCHEM IEYJH5064-26-34 20:10:00 Test Item Value Reference Range Interpretation Comments Glucose Lvl (test code = Glucose Lvl) 60 70-99 [place] 506282-07-17 20:10:00 Test Item Value Reference Range Interpretation Comments BUN (test code = BUN) 35 7-22 [place] 506282-07-17 20:10:00 Test Item Value Reference Range Interpretation Comments Creatinine Lvl (test code = Creatinine 6.10 0.50-1.40 Lvl) [place] 506282-07-17 20:10:00 Test Item Value Reference Range Interpretation Comments Sodium Lvl (test code = Sodium Lvl) 139 135-145 [place] 506282-07-17 20:10:00 Test Item Value Reference Range Interpretation Comments Potassium Lvl (test code = Potassium 3.1 3.5-5.1 Lvl) [place] 506282-07-17 20:10:00 Test Item Value Reference Range Interpretation Comments Chloride Lvl (test code = Chloride Lvl) 105 95-109 [place] 506282-07-17 20:10:00 Test Item Value Reference Range Interpretation Comments CO2 (test code = CO2) 28 24-32 [place] 506282-07-17 20:10:00 Test Item Value Reference Range Interpretation Comments Calcium Lvl (test code = Calcium Lvl) 8.1 8.5-10.5 [place]282-07-17 20:10:00 Test Item Value Reference Range Interpretation Comments Total Protein (test code = Total 5.8 6.4-8.4 Protein) [place] 506282-07-17 20:10:00 Test Item Value Reference Range Interpretation Comments Albumin Lvl (test code = Albumin Lvl) 2.6 3.5-5.0 [place] 506282-07-17 20:10:00 Test Item Value Reference Range Interpretation Comments ALT (test code = ALT) 74 See_Comment [Auto mated message] The system which ge nerated this result transmit swathi reference range : <=65. The reference range was not used to interpr et this result as deny l/abnormal. [place] 506282-07-17 20:10:00 Test Item Value Reference Range Interpretation Comments AST (test code = AST) 117 See_Comment [Auto mated message] The system which ge nerated this result transmit swathi reference range : <=37. The reference range was not used to interpr et this result as deny l/abnormal. [facility] CenterY[facility] [id number] 20:10:00 Test Item Value Reference Range Interpretation Comments Alk Phos (test code = Alk Phos) 241 39-136 [facility]2022-07-17 20:10:00 Test Item Value Reference Range Interpretation Comments Bili Total (test code = Bili Total) 0.8 0.2-1.3 [facility] CenterCARDIAC [id number] 20:10:00 Test Item Value Reference Range Interpretation Comments HS Troponin I Baseline (test code = HS 340 Troponin I Baseline) [facility]2022-07-17 20:10:00 Test Item Value Reference Range Interpretation Comments Glucose Lvl (test code = Glucose Lvl) 60 70-99 [facility] [id number] 20:10:00 Test Item Value Reference Range Interpretation Comments BUN (test code = BUN) 35 7-22 [facility]2022-07-17 20:10:00 Test Item Value Reference Range Interpretation Comments Creatinine Lvl (test code = Creatinine 6.10 0.50-1.40 Lvl) [facility] CenterDispatch [id number] 20:10:00 Test Item Value Reference Range Interpretation Comments Sodium Lvl (test code = Sodium Lvl) 139 135-145 [facility] [id number] 20:10:00 Test Item Value Reference Range Interpretation Comments Potassium Lvl (test code = Potassium 3.1 3.5-5.1 Lvl) [facility] [id number] 20:10:00 Test Item Value Reference Range Interpretation Comments AGAP (test code = AGAP) 9.1 10.0-20.0 [facility] CenterDispatch [id number] 20:10:00 Test Item Value Reference Range Interpretation Comments Chloride Lvl (test code = Chloride Lvl) 105 95-109 [facility] [id number] 20:10:00 Test Item Value Reference Range Interpretation Comments CO2 (test code = CO2) 28 24-32 [facility]2022-07-17 20:10:00 Test Item Value Reference Range Interpretation Comments Calcium Lvl (test code = Calcium Lvl) 8.1 8.5-10.5 [facility] CenterTarsa TherapeuticsHEATHER VILLE [address]116ELVUA4568-99-43 20:10:00 Test Item Value Reference Range Interpretation Comments Total Protein (test code = Total 5.8 6.4-8.4 Protein) [place] 506282-07-17 20:10:00 Test Item Value Reference Range Interpretation Comments Albumin Lvl (test code = Albumin Lvl) 2.6 3.5-5.0 [facility] CenterDispatch [id number] 20:10:00 Test Item Value Reference Range Interpretation Comments ALT (test code = ALT) 74 See_Comment [Auto mated message] The system which ge nerated this result transmit swathi reference range : <=65. The reference range was not used to interpr et this result as deny l/abnormal. [facility] [id number] 20:10:00 Test Item Value Reference Range Interpretation Comments AST (test code = AST) 117 See_Comment [Auto mated message] The system which ge nerated this result transmit swathi reference range : <=37. The reference range was not used to interpr et this result as deny l/abnormal. [facility] CenterDispatch [id number] 20:10:00 Test Item Value Reference Range Interpretation Comments Alk Phos (test code = Alk Phos) 241 39-136 [facility] CenterDispatch [id number] 20:10:00 Test Item Value Reference Range Interpretation Comments Bili Total (test code = Bili Total) 0.8 0.2-1.3 [facility] [id number] 20:10:00 Test Item Value Reference Range Interpretation Comments AGAP (test code = AGAP) 9.1 10.0-20.0 [facility] CenterDispatch [id number] 20:10:00 Test Item Value Reference Range Interpretation Comments B/C Ratio (test code = B/C Ratio) 6 1 6-25 [facility] CenterDispatch [id number] 20:10:00 Test Item Value Reference Range Interpretation Comments B/C Ratio (test code = B/C Ratio) 6 1 6-25 [facility]Dispatch [id number] 20:10:00 Test Item Value Reference Range Interpretation Comments Globulin (test code = Globulin) 3.2 2.7-4.2 [facility] CenterDispatch [id number] 20:10:00 Test Item Value Reference Range Interpretation Comments A/G Ratio (test code = A/G Ratio) 0.8 1 0.7-1.6 [facility]2022-07-17 20:10:00 Test Item Value Reference Range Interpretation Comments eGFR (test code = eGFR) 9 [place] 155092-07-17 20:10:00 Test Item Value Reference Range Interpretation Comments WBC (test code = WBC) 4.3 3.7-10.4 [place] 155092-07-17 20:10:00 Test Item Value Reference Range Interpretation Comments RBC (test code = RBC) 2.17 4.70-6.10 [place] 155092-07-17 20:10:00 Test Item Value Reference Range Interpretation Comments Hgb (test code = Hgb) 7.7 14.0-18.0 [place] 155092-07-17 20:10:00 Test Item Value Reference Range Interpretation Comments Hct (test code = Hct) 22.9 42.0-54.0 [place] 155092-07-17 20:10:00 Test Item Value Reference Range Interpretation Comments MCV (test code = MCV) 105.9 80.0-94.0 [place] 155092-07-17 20:10:00 Test Item Value Reference Range Interpretation Comments MCH (test code = MCH) 35.4 pg 27.0-31.0 [facility]2022-07-17 20:10:00 Test Item Value Reference Range Interpretation Comments Globulin (test code = Globulin) 3.2 2.7-4.2 [place] 155092-07-17 20:10:00 Test Item Value Reference Range Interpretation Comments MCHC (test code = MCHC) 33.4 32.0-36.0 [place] [address]-07-17 20:10:00 Test Item Value Reference Range Interpretation Comments RDW (test code = RDW) 23.6 11.5-14.5 [facility] CampusFoozuulPXQIPGUNKV6680-35-46 20:10:00 Test Item Value Reference Range Interpretation Comments Platelet (test code = Platelet) 146 133-450 [facility] CampusMcdpxcwSZFILOXEPP6495-87-08 20:10:00 Test Item Value Reference Range Interpretation Comments MPV (test code = MPV) 8.0 7.4-10.4 [facility] CampusLcyypdkMHOMBIUVKY9459-32-16 20:10:00 Test Item Value Reference Range Interpretation Comments Plt Morph (test code = Normal (12/14/21 3:10 Plt Morph) PM) [facility] CampusBnahwocYKZDGINNFL3032-49-44 20:10:00 Test Item Value Reference Range Interpretation Comments Segs (test code = Segs) 67.4 45.0-75.0 [facility] CampusXwvlwxrOGFIUJFUAH8907-98-74 20:10:00 Test Item Value Reference Range Interpretation Comments Lymphocytes (test code = Lymphocytes) 12.8 20.0-40.0 [facility] CampusVtrycolZKCOWHUDQY2064-73-45 20:10:00 Test Item Value Reference Range Interpretation Comments Monocytes (test code = Monocytes) 15.1 2.0-12.0 [facility] CampusKzzhglzCNIOTBRKMA2939-65-48 20:10:00 Test Item Value Reference Range Interpretation Comments Eosinophils (test code = 4.1 See_Comment [A utomated message] The Eosinophils) system which ge nerated this result tra nsmitted reference range : <=4.0. The reference r samantha was not used to int erpret this result as normal/abnormal . [facility] CampusKtyoqhjOJASPCMIFD6775-09-31 20:10:00 Test Item Value Reference Range Interpretation Comments Basophils (test code = 0.6 See_Comment [Aut omated message] The Basophils) system which ge nerated this result tra nsmitted reference range : <=1.0. The reference r samantha was not used to int erpret this result as normal/abnormal . [facility]2022-07-17 20:10:00 Test Item Value Reference Range Interpretation Comments A/G Ratio (test code = A/G Ratio) 0.8 1 0.7-1.6 [facility] CampusXmvphavFQAIKGOZET3083-95-60 20:10:00 Test Item Value Reference Range Interpretation Comments Neutrophils # (test code = Neutrophils 2.9 1.5-8.1 #) [facility] CampusOtwrpomJXBMNTQICC1327-59-68 20:10:00 Test Item Value Reference Range Interpretation Comments Lymphocytes # (test code = Lymphocytes 0.5 1.0-5.5 #) [place] 155092-07-17 20:10:00 Test Item Value Reference Range Interpretation Comments Monocytes # (test code 0.6 See_Comment [Aut omated message] The = Monocytes #) system which generated this result tra nsmitted reference range : <=0.8. The reference r samantha was not used to int erpret this result as normal/abnormal . [facility] CampusEisrogpMXRLKZQYNQ3291-05-71 20:10:00 Test Item Value Reference Range Interpretation Comments Eosinophils # (test code 0.2 See_Comment [A utomated message] The = Eosinophils #) system whic h generated this result tra nsmitted reference range : <=0.5. The reference r samantha was not used to int erpret this result as normal/abnormal . [facility] CampusQgtordjNRETZCSWGV3163-36-11 20:10:00 Test Item Value Reference Range Interpretation Comments Anisocyte (test code = 1+ *ABN*(12/14/21 Anisocyte) 3:10 PM) [facility] CampusZgzghteOMSTEXCUDO5617-79-95 20:10:00 Test Item Value Reference Range Interpretation Comments Macrocyte (test code = 1+ *ABN*(12/14/21 Macrocyte) 3:10 PM) [facility] CenterWxalethLQBMQTBTKT3841-68-85 20:10:00 Test Item Value Reference Range Interpretation Comments Coronavirus (COVID-19) Detected MANUEL (test code = 4*ABN*(12/14/21 3:10 Coronavirus (COVID-19) PM) MANUEL) [facility] CenterCHEM [id number] 20:10:00 Test Item Value Reference Range Interpretation Comments eGFR (test code = eGFR) 9 [facility] CampusBhzosnpWFSRNRSDXD2496-04-74 20:10:00 Test Item Value Reference Range Interpretation Comments WBC (test code = WBC) 4.3 3.7-10.4 [facility] CampusIzctbkuDTKOGXJXPP2290-06-89 20:10:00 Test Item Value Reference Range Interpretation Comments RBC (test code = RBC) 2.17 4.70-6.10 [place] 155092-07-17 20:10:00 Test Item Value Reference Range Interpretation Comments Hgb (test code = Hgb) 7.7 14.0-18.0 [place] 155092-07-17 20:10:00 Test Item Value Reference Range Interpretation Comments Hct (test code = Hct) 22.9 42.0-54.0 [facility] CampusGvkacntUTJMZKLQTG5521-06-08 20:10:00 Test Item Value Reference Range Interpretation Comments MCV (test code = MCV) 105.9 80.0-94.0 [facility] CampusTegzwerJXNETORDPE1854-85-14 20:10:00 Test Item Value Reference Range Interpretation Comments MCH (test code = MCH) 35.4 pg 27.0-31.0 [place] 155092-07-17 20:10:00 Test Item Value Reference Range Interpretation Comments MCHC (test code = MCHC) 33.4 32.0-36.0 [place] 155092-07-17 20:10:00 Test Item Value Reference Range Interpretation Comments RDW (test code = RDW) 23.6 11.5-14.5 [place] 155092-07-17 20:10:00 Test Item Value Reference Range Interpretation Comments Platelet (test code = Platelet) 146 133-450 [facility] CampusWzdfxweEUDYPDVGTW2732-41-38 20:10:00 Test Item Value Reference Range Interpretation Comments MPV (test code = MPV) 8.0 7.4-10.4 [place] 155092-07-17 20:10:00 Test Item Value Reference Range Interpretation Comments Plt Morph (test code = Normal (12/14/21 3:10 Plt Morph) PM) [facility] CampusGtwvcwhYYAZUAFVDO4562-50-38 20:10:00 Test Item Value Reference Range Interpretation Comments Segs (test code = Segs) 67.4 45.0-75.0 [place] 155092-07-17 20:10:00 Test Item Value Reference Range Interpretation Comments Lymphocytes (test code = Lymphocytes) 12.8 20.0-40.0 [place] 155092-07-17 20:10:00 Test Item Value Reference Range Interpretation Comments Monocytes (test code = Monocytes) 15.1 2.0-12.0 [place] 155092-07-17 20:10:00 Test Item Value Reference Range Interpretation Comments Eosinophils (test code = 4.1 See_Comment [A utomated message] The Eosinophils) system which ge nerated this result tra nsmitted reference range : <=4.0. The reference r samantha was not used to int erpret this result as normal/abnormal . [facility] CampusUyejbuxULGPQBYEMU1902-54-85 20:10:00 Test Item Value Reference Range Interpretation Comments Basophils (test code = 0.6 See_Comment [Aut omated message] The Basophils) system which ge nerated this result tra nsmitted reference range : <=1.0. The reference r samantha was not used to int erpret this result as normal/abnormal . [facility] CampusUqkuincOZTRDMTDIY2033-09-73 20:10:00 Test Item Value Reference Range Interpretation Comments Neutrophils # (test code = Neutrophils 2.9 1.5-8.1 #) [facility] HospitalGiapulfGNLTLSRDAG2032-68-92 20:10:00 Test Item Value Reference Range Interpretation Comments Lymphocytes # (test code = Lymphocytes 0.5 1.0-5.5 #) [facility] CampusCmjtjgvEYGTHANCYY0869-26-09 20:10:00 Test Item Value Reference Range Interpretation Comments Monocytes # (test code 0.6 See_Comment [Aut omated message] The = Monocytes #) system which generated this result tra nsmitted reference range : <=0.8. The reference r samantha was not used to int erpret this result as normal/abnormal . [facility] CampusTbsefdiVLJAOLDSHZ2668-67-80 20:10:00 Test Item Value Reference Range Interpretation Comments Eosinophils # (test code 0.2 See_Comment [A utomated message] The = Eosinophils #) system whic h generated this result tra nsmitted reference range : <=0.5. The reference r samantha was not used to int erpret this result as normal/abnormal . [facility] CampusOhnadadVFUCZQVSFG5282-81-75 20:10:00 Test Item Value Reference Range Interpretation Comments Anisocyte (test code = 1+ *ABN*(12/14/21 Anisocyte) 3:10 PM) [facility] CenterRubeursYRZJGNSQOB7817-89-91 20:10:00 Test Item Value Reference Range Interpretation Comments Macrocyte (test code = 1+ *ABN*(12/14/21 Macrocyte) 3:10 PM) [facility] CenterYrajdqjYNWUOLQQCJ8823-66-19 20:10:00 Test Item Value Reference Range Interpretation Comments Coronavirus (COVID-19) Detected MANUEL (test code = 4*ABN*(12/14/21 3:10 Coronavirus (COVID-19) PM) MANUEL) [facility] CenterCARDIAC RBUTXZY8694-44-03 20:10:00 Test Item Value Reference Range Interpretation Comments HS Troponin I Baseline (test code = HS 340 Troponin I Baseline) [place] 506282-07-17 20:10:00 Test Item Value Reference Range Interpretation Comments Glucose Lvl (test code = Glucose Lvl) 60 70-99 [place] 506282-07-17 20:10:00 Test Item Value Reference Range Interpretation Comments BUN (test code = BUN) 35 7-22 [place] 506282-07-17 20:10:00 Test Item Value Reference Range Interpretation Comments Creatinine Lvl (test code = Creatinine 6.10 0.50-1.40 Lvl) [place] 506282-07-17 20:10:00 Test Item Value Reference Range Interpretation Comments Sodium Lvl (test code = Sodium Lvl) 139 135-145 [place] 506282-07-17 20:10:00 Test Item Value Reference Range Interpretation Comments Potassium Lvl (test code = Potassium 3.1 3.5-5.1 Lvl) [place] 506282-07-17 20:10:00 Test Item Value Reference Range Interpretation Comments Chloride Lvl (test code = Chloride Lvl) 105 95-109 [place] 506282-07-17 20:10:00 Test Item Value Reference Range Interpretation Comments CO2 (test code = CO2) 28 24-32 [place] 506282-07-17 20:10:00 Test Item Value Reference Range Interpretation Comments Calcium Lvl (test code = Calcium Lvl) 8.1 8.5-10.5 [place] 506282-07-17 20:10:00 Test Item Value Reference Range Interpretation Comments Total Protein (test code = Total 5.8 6.4-8.4 Protein) [place] 506282-07-17 20:10:00 Test Item Value Reference Range Interpretation Comments Albumin Lvl (test code = Albumin Lvl) 2.6 3.5-5.0 [place] 506282-07-17 20:10:00 Test Item Value Reference Range Interpretation Comments ALT (test code = ALT) 74 See_Comment [Auto mated message] The system which ge nerated this result transmit swathi reference range : <=65. The reference range was not used to interpr et this result as deny l/abnormal. [place] 506282-07-17 20:10:00 Test Item Value Reference Range Interpretation Comments AST (test code = AST) 117 See_Comment [Auto mated message] The system which ge nerated this result transmit swathi reference range : <=37. The reference range was not used to interpr et this result as deny l/abnormal. [facility]2022-07-17 20:10:00 Test Item Value Reference Range Interpretation Comments Alk Phos (test code = Alk Phos) 241 39-136 [facility]2022-07-17 20:10:00 Test Item Value Reference Range Interpretation Comments Bili Total (test code = Bili Total) 0.8 0.2-1.3 [place] 506282-07-17 20:10:00 Test Item Value Reference Range Interpretation Comments AGAP (test code = AGAP) 9.1 10.0-20.0 [facility]2022-07-17 20:10:00 Test Item Value Reference Range Interpretation Comments B/C Ratio (test code = B/C Ratio) 6 1 6-25 [place] 506282-07-17 20:10:00 Test Item Value Reference Range Interpretation Comments Globulin (test code = Globulin) 3.2 2.7-4.2 [facility]2022-07-17 20:10:00 Test Item Value Reference Range Interpretation Comments A/G Ratio (test code = A/G Ratio) 0.8 1 0.7-1.6 [place] 506282-07-17 20:10:00 Test Item Value Reference Range Interpretation Comments eGFR (test code = eGFR) 9 [facility]OksdwagRCVTGESFLF0563-52-83 20:10:00 Test Item Value Reference Range Interpretation Comments WBC (test code = WBC) 4.3 3.7-10.4 [place] 155092-07-17 20:10:00 Test Item Value Reference Range Interpretation Comments RBC (test code = RBC) 2.17 4.70-6.10 [place] 155092-07-17 20:10:00 Test Item Value Reference Range Interpretation Comments Hgb (test code = Hgb) 7.7 14.0-18.0 [place] 155092-07-17 20:10:00 Test Item Value Reference Range Interpretation Comments Hct (test code = Hct) 22.9 42.0-54.0 [place] 155092-07-17 20:10:00 Test Item Value Reference Range Interpretation Comments MCV (test code = MCV) 105.9 80.0-94.0 [facility] CampusIoqsbkrLUJZYLWTEK7230-81-77 20:10:00 Test Item Value Reference Range Interpretation Comments MCH (test code = MCH) 35.4 pg 27.0-31.0 [facility] CampusZaarhlxZSPYSLUDJH7587-16-74 20:10:00 Test Item Value Reference Range Interpretation Comments MCHC (test code = MCHC) 33.4 32.0-36.0 [facility] CampusAlagzbcQKWEHFSYMU6450-09-03 20:10:00 Test Item Value Reference Range Interpretation Comments RDW (test code = RDW) 23.6 11.5-14.5 [facility] CampusVsfogbrWJCNFRYPKQ0690-44-03 20:10:00 Test Item Value Reference Range Interpretation Comments Platelet (test code = Platelet) 146 133-450 [facility] CampusTlyrxtzZCLVQSAQQC3892-80-09 20:10:00 Test Item Value Reference Range Interpretation Comments MPV (test code = MPV) 8.0 7.4-10.4 [facility] CampusKyjqebuJCEIOQDGTH3881-41-59 20:10:00 Test Item Value Reference Range Interpretation Comments Plt Morph (test code = Normal (12/14/21 3:10 Plt Morph) PM) [facility] CampusHolwabaROBHXHNVPY7219-38-02 20:10:00 Test Item Value Reference Range Interpretation Comments Segs (test code = Segs) 67.4 45.0-75.0 [facility] CampusFcbmbjyUHKCXKQDRU3285-44-26 20:10:00 Test Item Value Reference Range Interpretation Comments Lymphocytes (test code = Lymphocytes) 12.8 20.0-40.0 [facility] CampusLogikfjCFTHXCAJVP2086-33-00 20:10:00 Test Item Value Reference Range Interpretation Comments Monocytes (test code = Monocytes) 15.1 2.0-12.0 [place] 155092-07-17 20:10:00 Test Item Value Reference Range Interpretation Comments Eosinophils (test code = 4.1 See_Comment [A utomated message] The Eosinophils) system which ge nerated this result tra nsmitted reference range : <=4.0. The reference r samantha was not used to int erpret this result as normal/abnormal . [facility] CampusXblnqptVHFNSMMFDT3358-08-18 20:10:00 Test Item Value Reference Range Interpretation Comments Basophils (test code = 0.6 See_Comment [Aut omated message] The Basophils) system which ge nerated this result tra nsmitted reference range : <=1.0. The reference r samantha was not used to int erpret this result as normal/abnormal . [facility] CampusPxoibuiXFRAAXFZNY2439-11-26 20:10:00 Test Item Value Reference Range Interpretation Comments Neutrophils # (test code = Neutrophils 2.9 1.5-8.1 #) [facility] CampusChovugySMLFLKRGFZ9585-27-48 20:10:00 Test Item Value Reference Range Interpretation Comments Lymphocytes # (test code = Lymphocytes 0.5 1.0-5.5 #) [facility] CampusRqmgukeBSSTKDMTDL0603-69-74 20:10:00 Test Item Value Reference Range Interpretation Comments Monocytes # (test code 0.6 See_Comment [Aut omated message] The = Monocytes #) system which generated this result tra nsmitted reference range : <=0.8. The reference r samantha was not used to int erpret this result as normal/abnormal . [facility] CampusZlvfzqtOJBEKXPAWM4064-59-41 20:10:00 Test Item Value Reference Range Interpretation Comments Eosinophils # (test code 0.2 See_Comment [A utomated message] The = Eosinophils #) system whic h generated this result tra nsmitted reference range : <=0.5. The reference r samantha was not used to int erpret this result as normal/abnormal . [facility] CampusYjabrpaROYIGATVSO4511-76-22 20:10:00 Test Item Value Reference Range Interpretation Comments Anisocyte (test code = 1+ *ABN*(12/14/21 Anisocyte) 3:10 PM) [facility] CampusAoijcezXTGJYPHIXY6944-37-52 20:10:00 Test Item Value Reference Range Interpretation Comments Macrocyte (test code = 1+ *ABN*(12/14/21 Macrocyte) 3:10 PM) [facility] CenterZhgpfbyZUNUDNKRLI5983-60-23 20:10:00 Test Item Value Reference Range Interpretation Comments Coronavirus (COVID-19) Detected MANUEL (test code = 4*ABN*(12/14/21 3:10 Coronavirus (COVID-19) PM) MANUEL) [facility] CenterCARDIAC OWEWSHG3169-32-60 20:10:00 Test Item Value Reference Range Interpretation Comments HS Troponin I Baseline (test code = HS 340 Troponin I Baseline) [place] 506282-07-17 20:10:00 Test Item Value Reference Range Interpretation Comments Glucose Lvl (test code = Glucose Lvl) 60 70-99 [place]282-07-17 20:10:00 Test Item Value Reference Range Interpretation Comments BUN (test code = BUN) 35 7-22 [place]282-07-17 20:10:00 Test Item Value Reference Range Interpretation Comments Creatinine Lvl (test code = Creatinine 6.10 0.50-1.40 Lvl) [place]282-07-17 20:10:00 Test Item Value Reference Range Interpretation Comments Sodium Lvl (test code = Sodium Lvl) 139 135-145 [place]282-07-17 20:10:00 Test Item Value Reference Range Interpretation Comments Potassium Lvl (test code = Potassium 3.1 3.5-5.1 Lvl) [place]282-07-17 20:10:00 Test Item Value Reference Range Interpretation Comments Chloride Lvl (test code = Chloride Lvl) 105 95-109 [place]282-07-17 20:10:00 Test Item Value Reference Range Interpretation Comments CO2 (test code = CO2) 28 24-32 [place]282-07-17 20:10:00 Test Item Value Reference Range Interpretation Comments Calcium Lvl (test code = Calcium Lvl) 8.1 8.5-10.5 [place]282-07-17 20:10:00 Test Item Value Reference Range Interpretation Comments Total Protein (test code = Total 5.8 6.4-8.4 Protein) [place] 506282-07-17 20:10:00 Test Item Value Reference Range Interpretation Comments Albumin Lvl (test code = Albumin Lvl) 2.6 3.5-5.0 [place]282-07-17 20:10:00 Test Item Value Reference Range Interpretation Comments ALT (test code = ALT) 74 See_Comment [Auto mated message] The system which ge nerated this result transmit swathi reference range : <=65. The reference range was not used to interpr et this result as deny l/abnormal. [place]282-07-17 20:10:00 Test Item Value Reference Range Interpretation Comments AST (test code = AST) 117 See_Comment [Auto mated message] The system which ge nerated this result transmit swathi reference range : <=37. The reference range was not used to interpr et this result as deny l/abnormal. [facility] CenterY[facility] SJUEU1591-61-07 20:10:00 Test Item Value Reference Range Interpretation Comments Alk Phos (test code = Alk Phos) 241 39-136 [facility] CenterDispatch PYYVO4038-56-92 20:10:00 Test Item Value Reference Range Interpretation Comments Bili Total (test code = Bili Total) 0.8 0.2-1.3 [facility] CenterDispatch WWWVJ1306-03-07 20:10:00 Test Item Value Reference Range Interpretation Comments AGAP (test code = AGAP) 9.1 10.0-20.0 [facility] CenterDispatch ZAGGD1933-03-10 20:10:00 Test Item Value Reference Range Interpretation Comments B/C Ratio (test code = B/C Ratio) 6 1 6-25 [facility] AYUJW5046-63-52 20:10:00 Test Item Value Reference Range Interpretation Comments Globulin (test code = Globulin) 3.2 2.7-4.2 [facility] CenterDispatch XJAXJ6531-43-74 20:10:00 Test Item Value Reference Range Interpretation Comments A/G Ratio (test code = A/G Ratio) 0.8 1 0.7-1.6 [facility] MTPKQ4429-03-96 20:10:00 Test Item Value Reference Range Interpretation Comments eGFR (test code = eGFR) 9 [facility] CampusLvxfdznVSWXAFCZNF7566-10-10 20:10:00 Test Item Value Reference Range Interpretation Comments WBC (test code = WBC) 4.3 3.7-10.4 [place] 155092-07-17 20:10:00 Test Item Value Reference Range Interpretation Comments RBC (test code = RBC) 2.17 4.70-6.10 [place] 155092-07-17 20:10:00 Test Item Value Reference Range Interpretation Comments Hgb (test code = Hgb) 7.7 14.0-18.0 [place] 155092-07-17 20:10:00 Test Item Value Reference Range Interpretation Comments Hct (test code = Hct) 22.9 42.0-54.0 [facility] CampusCxtaqwqAZYRTYQYVR6936-06-16 20:10:00 Test Item Value Reference Range Interpretation Comments MCV (test code = MCV) 105.9 80.0-94.0 [facility] CampusQduxjfsVKACOUEVZJ1420-41-61 20:10:00 Test Item Value Reference Range Interpretation Comments MCH (test code = MCH) 35.4 pg 27.0-31.0 [facility] CampusFtfurrrNNEBMVZSSU2988-31-86 20:10:00 Test Item Value Reference Range Interpretation Comments MCHC (test code = MCHC) 33.4 32.0-36.0 [facility] CampusHmlmjgsPAJUWFIEXP8479-88-74 20:10:00 Test Item Value Reference Range Interpretation Comments RDW (test code = RDW) 23.6 11.5-14.5 [facility] CampusRspdclnBLDPGHADKA7298-51-25 20:10:00 Test Item Value Reference Range Interpretation Comments Platelet (test code = Platelet) 146 133-450 [facility] CampusXwsywxjKWTLUGKMZB8776-85-53 20:10:00 Test Item Value Reference Range Interpretation Comments MPV (test code = MPV) 8.0 7.4-10.4 [facility] CampusUihcrkvIMMDPUATAM7631-11-02 20:10:00 Test Item Value Reference Range Interpretation Comments Plt Morph (test code = Normal (12/14/21 3:10 Plt Morph) PM) [facility] CampusTeqgacbCSAKZIUHWD5885-40-75 20:10:00 Test Item Value Reference Range Interpretation Comments Segs (test code = Segs) 67.4 45.0-75.0 [facility] CampusXjhwjhcIRRZDTMWOW4036-76-77 20:10:00 Test Item Value Reference Range Interpretation Comments Lymphocytes (test code = Lymphocytes) 12.8 20.0-40.0 [place] 155092-07-17 20:10:00 Test Item Value Reference Range Interpretation Comments Monocytes (test code = Monocytes) 15.1 2.0-12.0 [place] 155092-07-17 20:10:00 Test Item Value Reference Range Interpretation Comments Eosinophils (test code = 4.1 See_Comment [A utomated message] The Eosinophils) system which ge nerated this result tra nsmitted reference range : <=4.0. The reference r samantha was not used to int erpret this result as normal/abnormal . [facility] CampusQaqpnspFDNHHAEFHU9585-01-31 20:10:00 Test Item Value Reference Range Interpretation Comments Basophils (test code = 0.6 See_Comment [Aut omated message] The Basophils) system which ge nerated this result tra nsmitted reference range : <=1.0. The reference r samantha was not used to int erpret this result as normal/abnormal . [facility] CampusOznftutYXQXDMZIGF5456-48-84 20:10:00 Test Item Value Reference Range Interpretation Comments Neutrophils # (test code = Neutrophils 2.9 1.5-8.1 #) [facility] CampusPcrlbciXOLSZFMCCL9788-77-75 20:10:00 Test Item Value Reference Range Interpretation Comments Lymphocytes # (test code = Lymphocytes 0.5 1.0-5.5 #) [facility] CampusMioqnyzKXHBVSPIBX2785-21-87 20:10:00 Test Item Value Reference Range Interpretation Comments Monocytes # (test code 0.6 See_Comment [Aut omated message] The = Monocytes #) system which generated this result tra nsmitted reference range : <=0.8. The reference r samantha was not used to int erpret this result as normal/abnormal . [facility] CampusYxnnslbPZPESYEZMK4972-93-46 20:10:00 Test Item Value Reference Range Interpretation Comments Eosinophils # (test code 0.2 See_Comment [A utomated message] The = Eosinophils #) system whic h generated this result tra nsmitted reference range : <=0.5. The reference r samantha was not used to int erpret this result as normal/abnormal . [facility] CampusWtyipfwAHAIWIFXXT8086-30-70 20:10:00 Test Item Value Reference Range Interpretation Comments Anisocyte (test code = 1+ *ABN*(12/14/21 Anisocyte) 3:10 PM) [facility] CampusAirajsoTHJWPMMGZV0769-51-82 20:10:00 Test Item Value Reference Range Interpretation Comments Macrocyte (test code = 1+ *ABN*(12/14/21 Macrocyte) 3:10 PM) [facility] CenterXisyoshEDJENDERCP5750-14-50 20:10:00 Test Item Value Reference Range Interpretation Comments Coronavirus (COVID-19) Detected MANUEL (test code = 4*ABN*(12/14/21 3:10 Coronavirus (COVID-19) PM) MANUEL) [facility] CenterCARDIAC ZJVAEGG7535-31-11 20:10:00 Test Item Value Reference Range Interpretation Comments HS Troponin I Baseline (test code = HS 340 Troponin I Baseline) [place] 506282-07-17 20:10:00 Test Item Value Reference Range Interpretation Comments Glucose Lvl (test code = Glucose Lvl) 60 70-99 [place] 506282-07-17 20:10:00 Test Item Value Reference Range Interpretation Comments BUN (test code = BUN) 35 7-22 [place] 506282-07-17 20:10:00 Test Item Value Reference Range Interpretation Comments Creatinine Lvl (test code = Creatinine 6.10 0.50-1.40 Lvl) [place] 506282-07-17 20:10:00 Test Item Value Reference Range Interpretation Comments Sodium Lvl (test code = Sodium Lvl) 139 135-145 [place] 506282-07-17 20:10:00 Test Item Value Reference Range Interpretation Comments Potassium Lvl (test code = Potassium 3.1 3.5-5.1 Lvl) [place] 506282-07-17 20:10:00 Test Item Value Reference Range Interpretation Comments Chloride Lvl (test code = Chloride Lvl) 105 95-109 [place] 506282-07-17 20:10:00 Test Item Value Reference Range Interpretation Comments CO2 (test code = CO2) 28 24-32 [place] 506282-07-17 20:10:00 Test Item Value Reference Range Interpretation Comments Calcium Lvl (test code = Calcium Lvl) 8.1 8.5-10.5 [facility]2022-07-17 20:10:00 Test Item Value Reference Range Interpretation Comments Total Protein (test code = Total 5.8 6.4-8.4 Protein) [place] 506282-07-17 20:10:00 Test Item Value Reference Range Interpretation Comments Albumin Lvl (test code = Albumin Lvl) 2.6 3.5-5.0 [place] 506282-07-17 20:10:00 Test Item Value Reference Range Interpretation Comments ALT (test code = ALT) 74 See_Comment [Auto mated message] The system which ge nerated this result transmit swathi reference range : <=65. The reference range was not used to interpr et this result as deny l/abnormal. [place] [address]-07-17 20:10:00 Test Item Value Reference Range Interpretation Comments AST (test code = AST) 117 See_Comment [Auto mated message] The system which ge nerated this result transmit swathi reference range : <=37. The reference range was not used to interpr et this result as deny l/abnormal. [place] 506282-07-17 20:10:00 Test Item Value Reference Range Interpretation Comments Alk Phos (test code = Alk Phos) 241 39-136 [place] 506282-07-17 20:10:00 Test Item Value Reference Range Interpretation Comments Bili Total (test code = Bili Total) 0.8 0.2-1.3 [place] 506282-07-17 20:10:00 Test Item Value Reference Range Interpretation Comments AGAP (test code = AGAP) 9.1 10.0-20.0 [place] 506282-07-17 20:10:00 Test Item Value Reference Range Interpretation Comments B/C Ratio (test code = B/C Ratio) 6 1 6-25 [place] 506282-07-17 20:10:00 Test Item Value Reference Range Interpretation Comments Globulin (test code = Globulin) 3.2 2.7-4.2 [place] 506282-07-17 20:10:00 Test Item Value Reference Range Interpretation Comments A/G Ratio (test code = A/G Ratio) 0.8 1 0.7-1.6 [place] 506282-07-17 20:10:00 Test Item Value Reference Range Interpretation Comments eGFR (test code = eGFR) 9 [place] 155092-07-17 20:10:00 Test Item Value Reference Range Interpretation Comments WBC (test code = WBC) 4.3 3.7-10.4 [place] 155092-07-17 20:10:00 Test Item Value Reference Range Interpretation Comments RBC (test code = RBC) 2.17 4.70-6.10 [place] 155092-07-17 20:10:00 Test Item Value Reference Range Interpretation Comments Hgb (test code = Hgb) 7.7 14.0-18.0 [place] 155092-07-17 20:10:00 Test Item Value Reference Range Interpretation Comments Hct (test code = Hct) 22.9 42.0-54.0 [place] 155092-07-17 20:10:00 Test Item Value Reference Range Interpretation Comments MCV (test code = MCV) 105.9 80.0-94.0 [place] 155092-07-17 20:10:00 Test Item Value Reference Range Interpretation Comments MCH (test code = MCH) 35.4 pg 27.0-31.0 [place] 155092-07-17 20:10:00 Test Item Value Reference Range Interpretation Comments MCHC (test code = MCHC) 33.4 32.0-36.0 [place] 155092-07-17 20:10:00 Test Item Value Reference Range Interpretation Comments RDW (test code = RDW) 23.6 11.5-14.5 [place] 155092-07-17 20:10:00 Test Item Value Reference Range Interpretation Comments Platelet (test code = Platelet) 146 133-450 [place] 155092-07-17 20:10:00 Test Item Value Reference Range Interpretation Comments MPV (test code = MPV) 8.0 7.4-10.4 [place] 155092-07-17 20:10:00 Test Item Value Reference Range Interpretation Comments Plt Morph (test code = Normal (12/14/21 3:10 Plt Morph) PM) [place] 155092-07-17 20:10:00 Test Item Value Reference Range Interpretation Comments Segs (test code = Segs) 67.4 45.0-75.0 [place] 155092-07-17 20:10:00 Test Item Value Reference Range Interpretation Comments Lymphocytes (test code = Lymphocytes) 12.8 20.0-40.0 [place] 155092-07-17 20:10:00 Test Item Value Reference Range Interpretation Comments Monocytes (test code = Monocytes) 15.1 2.0-12.0 [place] [address]-07-17 20:10:00 Test Item Value Reference Range Interpretation Comments Eosinophils (test code = 4.1 See_Comment [A utomated message] The Eosinophils) system which ge nerated this result tra nsmitted reference range : <=4.0. The reference r samantha was not used to int erpret this result as normal/abnormal . [facility] CampusQyjwdseWMOEPJBYWU1334-93-10 20:10:00 Test Item Value Reference Range Interpretation Comments Basophils (test code = 0.6 See_Comment [Aut omated message] The Basophils) system which ge nerated this result tra nsmitted reference range : <=1.0. The reference r samantha was not used to int erpret this result as normal/abnormal . [facility] CampusSjrgjcgDUCEKTRKPF3021-09-24 20:10:00 Test Item Value Reference Range Interpretation Comments Neutrophils # (test code = Neutrophils 2.9 1.5-8.1 #) [facility] CampusQxkaecsPUQUAWKKOD2805-38-81 20:10:00 Test Item Value Reference Range Interpretation Comments Lymphocytes # (test code = Lymphocytes 0.5 1.0-5.5 #) [facility] CampusTbjbzquOWXKBBGIUT9625-77-38 20:10:00 Test Item Value Reference Range Interpretation Comments Monocytes # (test code 0.6 See_Comment [Aut omated message] The = Monocytes #) system which generated this result tra nsmitted reference range : <=0.8. The reference r samantha was not used to int erpret this result as normal/abnormal . [facility] CampusFxdzkzpXQJHAWYPGA2402-73-98 20:10:00 Test Item Value Reference Range Interpretation Comments Eosinophils # (test code 0.2 See_Comment [A utomated message] The = Eosinophils #) system whic h generated this result tra nsmitted reference range : <=0.5. The reference r samantha was not used to int erpret this result as normal/abnormal . [facility] CampusDuywedwTTETPEDZFO7284-88-14 20:10:00 Test Item Value Reference Range Interpretation Comments Anisocyte (test code = 1+ *ABN*(12/14/21 Anisocyte) 3:10 PM) [facility] CampusBgxesahTVSNSBFKFY5326-98-74 20:10:00 Test Item Value Reference Range Interpretation Comments Macrocyte (test code = 1+ *ABN*(12/14/21 Macrocyte) 3:10 PM) [facility] CenterIuvijziFSSSPRSWRT3848-23-43 20:10:00 Test Item Value Reference Range Interpretation Comments Coronavirus (COVID-19) Detected MANUEL (test code = 4*ABN*(12/14/21 3:10 Coronavirus (COVID-19) PM) MANUEL) [facility] CenterCARD[facility] OLLTRPM4864-70-40 20:10:00 Test Item Value Reference Range Interpretation Comments HS Troponin I Baseline (test code = HS 340 Troponin I Baseline) [facility]2022-07-17 20:10:00 Test Item Value Reference Range Interpretation Comments Glucose Lvl (test code = Glucose Lvl) 60 70-99 [facility]2022-07-17 20:10:00 Test Item Value Reference Range Interpretation Comments BUN (test code = BUN) 35 7-22 [facility]2022-07-17 20:10:00 Test Item Value Reference Range Interpretation Comments Creatinine Lvl (test code = Creatinine 6.10 0.50-1.40 Lvl) [facility]2022-07-17 20:10:00 Test Item Value Reference Range Interpretation Comments Sodium Lvl (test code = Sodium Lvl) 139 135-145 [facility]2022-07-17 20:10:00 Test Item Value Reference Range Interpretation Comments Potassium Lvl (test code = Potassium 3.1 3.5-5.1 Lvl) [facility]2022-07-17 20:10:00 Test Item Value Reference Range Interpretation Comments Chloride Lvl (test code = Chloride Lvl) 105 95-109 [facility]2022-07-17 20:10:00 Test Item Value Reference Range Interpretation Comments CO2 (test code = CO2) 28 24-32 [facility]2022-07-17 20:10:00 Test Item Value Reference Range Interpretation Comments Calcium Lvl (test code = Calcium Lvl) 8.1 8.5-10.5 [facility]2022-07-17 20:10:00 Test Item Value Reference Range Interpretation Comments Total Protein (test code = Total 5.8 6.4-8.4 Protein) [facility]2022-07-17 20:10:00 Test Item Value Reference Range Interpretation Comments Albumin Lvl (test code = Albumin Lvl) 2.6 3.5-5.0 [facility]2022-07-17 20:10:00 Test Item Value Reference Range Interpretation Comments ALT (test code = ALT) 74 See_Comment [Auto mated message] The system which ge nerated this result transmit swathi reference range : <=65. The reference range was not used to interpr et this result as deny l/abnormal. [facility]2022-07-17 20:10:00 Test Item Value Reference Range Interpretation Comments AST (test code = AST) 117 See_Comment [Auto mated message] The system which ge nerated this result transmit swathi reference range : <=37. The reference range was not used to interpr et this result as deny l/abnormal. [place] 506282-07-17 20:10:00 Test Item Value Reference Range Interpretation Comments Alk Phos (test code = Alk Phos) 241 39-136 [place] 506282-07-17 20:10:00 Test Item Value Reference Range Interpretation Comments Bili Total (test code = Bili Total) 0.8 0.2-1.3 [place] 506282-07-17 20:10:00 Test Item Value Reference Range Interpretation Comments AGAP (test code = AGAP) 9.1 10.0-20.0 [place] 506282-07-17 20:10:00 Test Item Value Reference Range Interpretation Comments B/C Ratio (test code = B/C Ratio) 6 1 6-25 [place] 506282-07-17 20:10:00 Test Item Value Reference Range Interpretation Comments Globulin (test code = Globulin) 3.2 2.7-4.2 [place] 506282-07-17 20:10:00 Test Item Value Reference Range Interpretation Comments A/G Ratio (test code = A/G Ratio) 0.8 1 0.7-1.6 [place] 506282-07-17 20:10:00 Test Item Value Reference Range Interpretation Comments eGFR (test code = eGFR) 9 [place] 155092-07-17 20:10:00 Test Item Value Reference Range Interpretation Comments WBC (test code = WBC) 4.3 3.7-10.4 [place] 155092-07-17 20:10:00 Test Item Value Reference Range Interpretation Comments RBC (test code = RBC) 2.17 4.70-6.10 [place] 155092-07-17 20:10:00 Test Item Value Reference Range Interpretation Comments Hgb (test code = Hgb) 7.7 14.0-18.0 [place] 155092-07-17 20:10:00 Test Item Value Reference Range Interpretation Comments Hct (test code = Hct) 22.9 42.0-54.0 [place] 155092-07-17 20:10:00 Test Item Value Reference Range Interpretation Comments MCV (test code = MCV) 105.9 80.0-94.0 [place] 155092-07-17 20:10:00 Test Item Value Reference Range Interpretation Comments MCH (test code = MCH) 35.4 pg 27.0-31.0 [place] 155092-07-17 20:10:00 Test Item Value Reference Range Interpretation Comments MCHC (test code = MCHC) 33.4 32.0-36.0 [place] 155092-07-17 20:10:00 Test Item Value Reference Range Interpretation Comments RDW (test code = RDW) 23.6 11.5-14.5 [place] 155092-07-17 20:10:00 Test Item Value Reference Range Interpretation Comments Platelet (test code = Platelet) 146 133-450 [facility]GyvejjnQRIKRGMXBP5748-00-47 20:10:00 Test Item Value Reference Range Interpretation Comments MPV (test code = MPV) 8.0 7.4-10.4 [place] 155092-07-17 20:10:00 Test Item Value Reference Range Interpretation Comments Plt Morph (test code = Normal (12/14/21 3:10 Plt Morph) PM) [place] 155092-07-17 20:10:00 Test Item Value Reference Range Interpretation Comments Segs (test code = Segs) 67.4 45.0-75.0 [place] 155092-07-17 20:10:00 Test Item Value Reference Range Interpretation Comments Lymphocytes (test code = Lymphocytes) 12.8 20.0-40.0 [place] 155092-07-17 20:10:00 Test Item Value Reference Range Interpretation Comments Monocytes (test code = Monocytes) 15.1 2.0-12.0 [place] 155092-07-17 20:10:00 Test Item Value Reference Range Interpretation Comments Eosinophils (test code = 4.1 See_Comment [A utomated message] The Eosinophils) system which ge nerated this result tra nsmitted reference range : <=4.0. The reference r samantha was not used to int erpret this result as normal/abnormal . [facility] CampusKzdgkcuRHWSXVYCTI5547-86-09 20:10:00 Test Item Value Reference Range Interpretation Comments Basophils (test code = 0.6 See_Comment [Aut omated message] The Basophils) system which ge nerated this result tra nsmitted reference range : <=1.0. The reference r samantha was not used to int erpret this result as normal/abnormal . [facility] CampusCrrtutdQSFBSHPIOM6213-86-26 20:10:00 Test Item Value Reference Range Interpretation Comments Neutrophils # (test code = Neutrophils 2.9 1.5-8.1 #) [facility] CampusZgutivgGNXLRPDIUK1272-52-43 20:10:00 Test Item Value Reference Range Interpretation Comments Lymphocytes # (test code = Lymphocytes 0.5 1.0-5.5 #) [facility] CampusNrshwkuZLXEPPZGAG3230-70-11 20:10:00 Test Item Value Reference Range Interpretation Comments Monocytes # (test code 0.6 See_Comment [Aut omated message] The = Monocytes #) system which generated this result tra nsmitted reference range : <=0.8. The reference r samantha was not used to int erpret this result as normal/abnormal . [facility] CampusRjrufurQIXMDAAAJM3383-05-39 20:10:00 Test Item Value Reference Range Interpretation Comments Eosinophils # (test code 0.2 See_Comment [A utomated message] The = Eosinophils #) system whic h generated this result tra nsmitted reference range : <=0.5. The reference r samantha was not used to int erpret this result as normal/abnormal . [facility] CampusKdbzemoOVTOXLPQCE7253-14-64 20:10:00 Test Item Value Reference Range Interpretation Comments Anisocyte (test code = 1+ *ABN*(12/14/21 Anisocyte) 3:10 PM) [facility] CampusKqxdqxnLTGIIPXAWN0280-57-14 20:10:00 Test Item Value Reference Range Interpretation Comments Macrocyte (test code = 1+ *ABN*(12/14/21 Macrocyte) 3:10 PM) [facility]RLSFRH3214-77-76 20:10:00 Test Item Value Reference Range Interpretation Comments Coronavirus (COVID-19) Detected MANUEL (test code = 4*ABN*(12/14/21 3:10 Coronavirus (COVID-19) PM) MANUEL) [facility] [id number] 20:10:00 Test Item Value Reference Range Interpretation Comments HS Troponin I Baseline (test code = HS 340 Troponin I Baseline) [facility] [id number] 20:10:00 Test Item Value Reference Range Interpretation Comments Glucose Lvl (test code = Glucose Lvl) 60 70-99 [facility] [id number] 20:10:00 Test Item Value Reference Range Interpretation Comments BUN (test code = BUN) 35 7-22 [facility] [id number] 20:10:00 Test Item Value Reference Range Interpretation Comments Creatinine Lvl (test code = Creatinine 6.10 0.50-1.40 Lvl) [facility] [id number] 20:10:00 Test Item Value Reference Range Interpretation Comments Sodium Lvl (test code = Sodium Lvl) 139 135-145 [facility]2022-07-17 20:10:00 Test Item Value Reference Range Interpretation Comments Potassium Lvl (test code = Potassium 3.1 3.5-5.1 Lvl) [facility] [id number] 20:10:00 Test Item Value Reference Range Interpretation Comments Chloride Lvl (test code = Chloride Lvl) 105 95-109 [facility] [id number] 20:10:00 Test Item Value Reference Range Interpretation Comments CO2 (test code = CO2) 28 24-32 [facility]2022-07-17 20:10:00 Test Item Value Reference Range Interpretation Comments Calcium Lvl (test code = Calcium Lvl) 8.1 8.5-10.5 [facility] [id number] 20:10:00 Test Item Value Reference Range Interpretation Comments Total Protein (test code = Total 5.8 6.4-8.4 Protein) [facility]2022-07-17 20:10:00 Test Item Value Reference Range Interpretation Comments Albumin Lvl (test code = Albumin Lvl) 2.6 3.5-5.0 [facility]2022-07-17 20:10:00 Test Item Value Reference Range Interpretation Comments ALT (test code = ALT) 74 See_Comment [Auto mated message] The system which ge nerated this result transmit swathi reference range : <=65. The reference range was not used to interpr et this result as deny l/abnormal. [place] 506282-07-17 20:10:00 Test Item Value Reference Range Interpretation Comments AST (test code = AST) 117 See_Comment [Auto mated message] The system which ge nerated this result transmit swathi reference range : <=37. The reference range was not used to interpr et this result as deny l/abnormal. [facility]2022-07-17 20:10:00 Test Item Value Reference Range Interpretation Comments Alk Phos (test code = Alk Phos) 241 39-136 [place] 506282-07-17 20:10:00 Test Item Value Reference Range Interpretation Comments Bili Total (test code = Bili Total) 0.8 0.2-1.3 [place] 506282-07-17 20:10:00 Test Item Value Reference Range Interpretation Comments AGAP (test code = AGAP) 9.1 10.0-20.0 [place] 506282-07-17 20:10:00 Test Item Value Reference Range Interpretation Comments B/C Ratio (test code = B/C Ratio) 6 1 6-25 [place] 506282-07-17 20:10:00 Test Item Value Reference Range Interpretation Comments Globulin (test code = Globulin) 3.2 2.7-4.2 [place] 506282-07-17 20:10:00 Test Item Value Reference Range Interpretation Comments A/G Ratio (test code = A/G Ratio) 0.8 1 0.7-1.6 [place] 506282-07-17 20:10:00 Test Item Value Reference Range Interpretation Comments eGFR (test code = eGFR) 9 [place] 155092-07-17 20:10:00 Test Item Value Reference Range Interpretation Comments WBC (test code = WBC) 4.3 3.7-10.4 [place] 155092-07-17 20:10:00 Test Item Value Reference Range Interpretation Comments RBC (test code = RBC) 2.17 4.70-6.10 [facility] CampusOabanhoXJWWERNLPF3972-63-01 20:10:00 Test Item Value Reference Range Interpretation Comments Hgb (test code = Hgb) 7.7 14.0-18.0 [place] 155092-07-17 20:10:00 Test Item Value Reference Range Interpretation Comments Hct (test code = Hct) 22.9 42.0-54.0 [place] 155092-07-17 20:10:00 Test Item Value Reference Range Interpretation Comments MCV (test code = MCV) 105.9 80.0-94.0 [place] 155092-07-17 20:10:00 Test Item Value Reference Range Interpretation Comments MCH (test code = MCH) 35.4 pg 27.0-31.0 [place] 155092-07-17 20:10:00 Test Item Value Reference Range Interpretation Comments MCHC (test code = MCHC) 33.4 32.0-36.0 [place] 155092-07-17 20:10:00 Test Item Value Reference Range Interpretation Comments RDW (test code = RDW) 23.6 11.5-14.5 [place] 155092-07-17 20:10:00 Test Item Value Reference Range Interpretation Comments Platelet (test code = Platelet) 146 133-450 [facility] CampusAnmcovsYCYWEVTVWJ9988-52-73 20:10:00 Test Item Value Reference Range Interpretation Comments MPV (test code = MPV) 8.0 7.4-10.4 [place] 155092-07-17 20:10:00 Test Item Value Reference Range Interpretation Comments Plt Morph (test code = Normal (12/14/21 3:10 Plt Morph) PM) [place] 155092-07-17 20:10:00 Test Item Value Reference Range Interpretation Comments Segs (test code = Segs) 67.4 45.0-75.0 [place] 155092-07-17 20:10:00 Test Item Value Reference Range Interpretation Comments Lymphocytes (test code = Lymphocytes) 12.8 20.0-40.0 [place] 155092-07-17 20:10:00 Test Item Value Reference Range Interpretation Comments Monocytes (test code = Monocytes) 15.1 2.0-12.0 [place] 155092-07-17 20:10:00 Test Item Value Reference Range Interpretation Comments Eosinophils (test code = 4.1 See_Comment [A utomated message] The Eosinophils) system which ge nerated this result tra nsmitted reference range : <=4.0. The reference r samantha was not used to int erpret this result as normal/abnormal . [facility] CampusHsbsjnnQLSYTKNRYU6241-58-61 20:10:00 Test Item Value Reference Range Interpretation Comments Basophils (test code = 0.6 See_Comment [Aut omated message] The Basophils) system which ge nerated this result tra nsmitted reference range : <=1.0. The reference r samantha was not used to int erpret this result as normal/abnormal . [facility] CampusUaqvgmdYRTLKHRYWM3712-02-43 20:10:00 Test Item Value Reference Range Interpretation Comments Neutrophils # (test code = Neutrophils 2.9 1.5-8.1 #) [facility] CampusKnrfzyoUDUYCSMFDB3467-33-84 20:10:00 Test Item Value Reference Range Interpretation Comments Lymphocytes # (test code = Lymphocytes 0.5 1.0-5.5 #) [facility] CampusZdvdlseYMIWRHEGFR1773-35-93 20:10:00 Test Item Value Reference Range Interpretation Comments Monocytes # (test code 0.6 See_Comment [Aut omated message] The = Monocytes #) system which generated this result tra nsmitted reference range : <=0.8. The reference r samantha was not used to int erpret this result as normal/abnormal . [facility] CampusYjjcrhqUQOBMWCROC7397-16-13 20:10:00 Test Item Value Reference Range Interpretation Comments Eosinophils # (test code 0.2 See_Comment [A utomated message] The = Eosinophils #) system whic h generated this result tra nsmitted reference range : <=0.5. The reference r samantha was not used to int erpret this result as normal/abnormal . [facility] CampusIbvgftnAOBAMLBBHR4139-06-70 20:10:00 Test Item Value Reference Range Interpretation Comments Anisocyte (test code = 1+ *ABN*(12/14/21 Anisocyte) 3:10 PM) [facility] CampusDnllxsfFTABOWRSMU6645-50-53 20:10:00 Test Item Value Reference Range Interpretation Comments Macrocyte (test code = 1+ *ABN*(12/14/21 Macrocyte) 3:10 PM) [facility] CenterUqyfeuiRTCXRFHHQR2437-68-46 20:10:00 Test Item Value Reference Range Interpretation Comments Coronavirus (COVID-19) Detected MANUEL (test code = 4*ABN*(12/14/21 3:10 Coronavirus (COVID-19) PM) MANUEL) [facility] [id number] 20:10:00 Test Item Value Reference Range Interpretation Comments HS Troponin I Baseline (test code = HS 340 Troponin I Baseline) [facility] [id number] 20:10:00 Test Item Value Reference Range Interpretation Comments Glucose Lvl (test code = Glucose Lvl) 60 70-99 [facility]2022-07-17 20:10:00 Test Item Value Reference Range Interpretation Comments BUN (test code = BUN) 35 7-22 [facility]2022-07-17 20:10:00 Test Item Value Reference Range Interpretation Comments Creatinine Lvl (test code = Creatinine 6.10 0.50-1.40 Lvl) [facility]2022-07-17 20:10:00 Test Item Value Reference Range Interpretation Comments Sodium Lvl (test code = Sodium Lvl) 139 135-145 [facility]2022-07-17 20:10:00 Test Item Value Reference Range Interpretation Comments Potassium Lvl (test code = Potassium 3.1 3.5-5.1 Lvl) [facility]2022-07-17 20:10:00 Test Item Value Reference Range Interpretation Comments Chloride Lvl (test code = Chloride Lvl) 105 95-109 [facility]2022-07-17 20:10:00 Test Item Value Reference Range Interpretation Comments CO2 (test code = CO2) 28 24-32 [facility]2022-07-17 20:10:00 Test Item Value Reference Range Interpretation Comments Calcium Lvl (test code = Calcium Lvl) 8.1 8.5-10.5 [facility]2022-07-17 20:10:00 Test Item Value Reference Range Interpretation Comments Total Protein (test code = Total 5.8 6.4-8.4 Protein) [facility]2022-07-17 20:10:00 Test Item Value Reference Range Interpretation Comments Albumin Lvl (test code = Albumin Lvl) 2.6 3.5-5.0 [facility]2022-07-17 20:10:00 Test Item Value Reference Range Interpretation Comments ALT (test code = ALT) 74 See_Comment [Auto mated message] The system which ge nerated this result transmit swathi reference range : <=65. The reference range was not used to interpr et this result as deny l/abnormal. [facility] CenterDispatch [id number] 20:10:00 Test Item Value Reference Range Interpretation Comments AST (test code = AST) 117 See_Comment [Auto mated message] The system which ge nerated this result transmit swathi reference range : <=37. The reference range was not used to interpr et this result as deny l/abnormal. [facility] CenterDispatch [id number] 20:10:00 Test Item Value Reference Range Interpretation Comments Alk Phos (test code = Alk Phos) 241 39-136 [facility] CenterDispatch [id number] 20:10:00 Test Item Value Reference Range Interpretation Comments Bili Total (test code = Bili Total) 0.8 0.2-1.3 [facility] [id number] 20:10:00 Test Item Value Reference Range Interpretation Comments AGAP (test code = AGAP) 9.1 10.0-20.0 [facility] [id number] 20:10:00 Test Item Value Reference Range Interpretation Comments B/C Ratio (test code = B/C Ratio) 6 1 6-25 [facility] [id number] 20:10:00 Test Item Value Reference Range Interpretation Comments Globulin (test code = Globulin) 3.2 2.7-4.2 [facility] [id number] 20:10:00 Test Item Value Reference Range Interpretation Comments A/G Ratio (test code = A/G Ratio) 0.8 1 0.7-1.6 [facility] CenterDispatch [id number] 20:10:00 Test Item Value Reference Range Interpretation Comments eGFR (test code = eGFR) 9 [place] 155092-07-17 20:10:00 Test Item Value Reference Range Interpretation Comments WBC (test code = WBC) 4.3 3.7-10.4 [place] 155092-07-17 20:10:00 Test Item Value Reference Range Interpretation Comments RBC (test code = RBC) 2.17 4.70-6.10 [place] 155092-07-17 20:10:00 Test Item Value Reference Range Interpretation Comments Hgb (test code = Hgb) 7.7 14.0-18.0 [facility] CampusHruzuofEGUMGYIQKN3092-35-71 20:10:00 Test Item Value Reference Range Interpretation Comments Hct (test code = Hct) 22.9 42.0-54.0 [facility] CampusQlnzkvrUZCXLEUWFM8383-42-45 20:10:00 Test Item Value Reference Range Interpretation Comments MCV (test code = MCV) 105.9 80.0-94.0 [facility] CampusRmukiecIASWFZRIGO0817-07-83 20:10:00 Test Item Value Reference Range Interpretation Comments MCH (test code = MCH) 35.4 pg 27.0-31.0 [facility] CampusIrrraivSAOGKNABXZ4571-32-42 20:10:00 Test Item Value Reference Range Interpretation Comments MCHC (test code = MCHC) 33.4 32.0-36.0 [facility] CampusBryksehAFCVQPVOHZ2825-07-36 20:10:00 Test Item Value Reference Range Interpretation Comments RDW (test code = RDW) 23.6 11.5-14.5 [facility] CampusYvsusmvJSKHQFDBRC5850-97-47 20:10:00 Test Item Value Reference Range Interpretation Comments Platelet (test code = Platelet) 146 133-450 [facility] CampusAsbntbbMKAOZUVFIN9189-87-95 20:10:00 Test Item Value Reference Range Interpretation Comments MPV (test code = MPV) 8.0 7.4-10.4 [facility] CampusZvtsemcGGBFCUCCVK1232-56-76 20:10:00 Test Item Value Reference Range Interpretation Comments Plt Morph (test code = Normal (12/14/21 3:10 Plt Morph) PM) [facility] CampusUqxyftzUJGHTCWGBY4039-40-90 20:10:00 Test Item Value Reference Range Interpretation Comments Segs (test code = Segs) 67.4 45.0-75.0 [facility] CampusCsorlahMZFUYPGFVZ5164-64-18 20:10:00 Test Item Value Reference Range Interpretation Comments Lymphocytes (test code = Lymphocytes) 12.8 20.0-40.0 [place] 155092-07-17 20:10:00 Test Item Value Reference Range Interpretation Comments Monocytes (test code = Monocytes) 15.1 2.0-12.0 [facility] CampusBdfxoacLKAPOCTBBB9194-83-64 20:10:00 Test Item Value Reference Range Interpretation Comments Eosinophils (test code = 4.1 See_Comment [A utomated message] The Eosinophils) system which ge nerated this result tra nsmitted reference range : <=4.0. The reference r samantha was not used to int erpret this result as normal/abnormal . [facility] CampusCweomcmWMBWAKIQCR1634-12-44 20:10:00 Test Item Value Reference Range Interpretation Comments Basophils (test code = 0.6 See_Comment [Aut omated message] The Basophils) system which ge nerated this result tra nsmitted reference range : <=1.0. The reference r samantha was not used to int erpret this result as normal/abnormal . [facility] CampusYxeczgzUWUZIXBZRU8292-62-72 20:10:00 Test Item Value Reference Range Interpretation Comments Neutrophils # (test code = Neutrophils 2.9 1.5-8.1 #) [facility] CampusIfmdmlgIZOUGOPNCH7017-79-67 20:10:00 Test Item Value Reference Range Interpretation Comments Lymphocytes # (test code = Lymphocytes 0.5 1.0-5.5 #) [facility] CampusOiljyafXMHAQWYADU3911-93-64 20:10:00 Test Item Value Reference Range Interpretation Comments Monocytes # (test code 0.6 See_Comment [Aut omated message] The = Monocytes #) system which generated this result tra nsmitted reference range : <=0.8. The reference r samantha was not used to int erpret this result as normal/abnormal . [facility] CampusXzcwbtrFPXXPGXRBI4848-52-95 20:10:00 Test Item Value Reference Range Interpretation Comments Eosinophils # (test code 0.2 See_Comment [A utomated message] The = Eosinophils #) system ic h generated this result tra nsmitted reference range : <=0.5. The reference r samantha was not used to int erpret this result as normal/abnormal . [facility] CampusSttyhlpQNGFDSPSGC1462-94-16 20:10:00 Test Item Value Reference Range Interpretation Comments Anisocyte (test code = 1+ *ABN*(12/14/21 Anisocyte) 3:10 PM) [place] 155092-07-17 20:10:00 Test Item Value Reference Range Interpretation Comments Macrocyte (test code = 1+ *ABN*(12/14/21 Macrocyte) 3:10 PM) [facility] CenterChupayyHISCFHZMNJ6637-70-05 20:10:00 Test Item Value Reference Range Interpretation Comments Coronavirus (COVID-19) Detected MANUEL (test code = 4*ABN*(12/14/21 3:10 Coronavirus (COVID-19) PM) MANUEL) [facility] CenterCARD[facility] [id number] 20:10:00 Test Item Value Reference Range Interpretation Comments HS Troponin I Baseline (test code = HS 340 Troponin I Baseline) [facility] [id number] 20:10:00 Test Item Value Reference Range Interpretation Comments Glucose Lvl (test code = Glucose Lvl) 60 70-99 [facility] [id number] 20:10:00 Test Item Value Reference Range Interpretation Comments BUN (test code = BUN) 35 7-22 [facility] [id number] 20:10:00 Test Item Value Reference Range Interpretation Comments Creatinine Lvl (test code = Creatinine 6.10 0.50-1.40 Lvl) [facility] HULZW0925-07-00 20:10:00 Test Item Value Reference Range Interpretation Comments Sodium Lvl (test code = Sodium Lvl) 139 135-145 [facility]2022-07-17 20:10:00 Test Item Value Reference Range Interpretation Comments Potassium Lvl (test code = Potassium 3.1 3.5-5.1 Lvl) [facility] [id number] 20:10:00 Test Item Value Reference Range Interpretation Comments Chloride Lvl (test code = Chloride Lvl) 105 95-109 [facility]2022-07-17 20:10:00 Test Item Value Reference Range Interpretation Comments CO2 (test code = CO2) 28 24-32 [facility]2022-07-17 20:10:00 Test Item Value Reference Range Interpretation Comments Calcium Lvl (test code = Calcium Lvl) 8.1 8.5-10.5 [facility]2022-07-17 20:10:00 Test Item Value Reference Range Interpretation Comments Total Protein (test code = Total 5.8 6.4-8.4 Protein) [facility]2022-07-17 20:10:00 Test Item Value Reference Range Interpretation Comments Albumin Lvl (test code = Albumin Lvl) 2.6 3.5-5.0 [facility]2022-07-17 20:10:00 Test Item Value Reference Range Interpretation Comments ALT (test code = ALT) 74 See_Comment [Auto mated message] The system which ge nerated this result transmit swathi reference range : <=65. The reference range was not used to interpr et this result as deny l/abnormal. [facility] [employer] [id number] 20:10:00 Test Item Value Reference Range Interpretation Comments AST (test code = AST) 117 See_Comment [Auto mated message] The system which ge nerated this result transmit swathi reference range : <=37. The reference range was not used to interpr et this result as deny l/abnormal. [facility] [id number] 20:10:00 Test Item Value Reference Range Interpretation Comments Alk Phos (test code = Alk Phos) 241 39-136 [facility] [employer] [id number] 20:10:00 Test Item Value Reference Range Interpretation Comments Bili Total (test code = Bili Total) 0.8 0.2-1.3 [facility] [id number] 20:10:00 Test Item Value Reference Range Interpretation Comments AGAP (test code = AGAP) 9.1 10.0-20.0 [facility] [id number] 20:10:00 Test Item Value Reference Range Interpretation Comments B/C Ratio (test code = B/C Ratio) 6 1 6-25 [facility] [id number] 20:10:00 Test Item Value Reference Range Interpretation Comments Globulin (test code = Globulin) 3.2 2.7-4.2 [facility] [id number] 20:10:00 Test Item Value Reference Range Interpretation Comments A/G Ratio (test code = A/G Ratio) 0.8 1 0.7-1.6 [facility] [id number] 20:10:00 Test Item Value Reference Range Interpretation Comments eGFR (test code = eGFR) 9 [facility] CenterLetkudbOGIPFQSXYU6328-66-39 20:10:00 Test Item Value Reference Range Interpretation Comments WBC (test code = WBC) 4.3 3.7-10.4 [place] [address]-07-17 20:10:00 Test Item Value Reference Range Interpretation Comments RBC (test code = RBC) 2.17 4.70-6.10 [place] [address]-07-17 20:10:00 Test Item Value Reference Range Interpretation Comments Hgb (test code = Hgb) 7.7 14.0-18.0 [place] 155092-07-17 20:10:00 Test Item Value Reference Range Interpretation Comments Hct (test code = Hct) 22.9 42.0-54.0 [place] 155092-07-17 20:10:00 Test Item Value Reference Range Interpretation Comments MCV (test code = MCV) 105.9 80.0-94.0 [place] 155092-07-17 20:10:00 Test Item Value Reference Range Interpretation Comments MCH (test code = MCH) 35.4 pg 27.0-31.0 [facility]aztcjiVBKLRDFKBZ0460-40-38 20:10:00 Test Item Value Reference Range Interpretation Comments MCHC (test code = MCHC) 33.4 32.0-36.0 [place] 155092-07-17 20:10:00 Test Item Value Reference Range Interpretation Comments RDW (test code = RDW) 23.6 11.5-14.5 [facility] CampusOjoqvxrDVMPKIFTVS5136-25-73 20:10:00 Test Item Value Reference Range Interpretation Comments Platelet (test code = Platelet) 146 133-450 [facility] CampusTpoijbrOFZJZVQYJV2624-90-41 20:10:00 Test Item Value Reference Range Interpretation Comments MPV (test code = MPV) 8.0 7.4-10.4 [facility] CampusGaekjuuXFWFKAPBFZ5873-30-66 20:10:00 Test Item Value Reference Range Interpretation Comments Plt Morph (test code = Normal (12/14/21 3:10 Plt Morph) PM) [facility] CampusOdgpxxqEIBMGBPNTT8243-09-46 20:10:00 Test Item Value Reference Range Interpretation Comments Segs (test code = Segs) 67.4 45.0-75.0 [place] 155092-07-17 20:10:00 Test Item Value Reference Range Interpretation Comments Lymphocytes (test code = Lymphocytes) 12.8 20.0-40.0 [place] 155092-07-17 20:10:00 Test Item Value Reference Range Interpretation Comments Monocytes (test code = Monocytes) 15.1 2.0-12.0 [place] 155092-07-17 20:10:00 Test Item Value Reference Range Interpretation Comments Eosinophils (test code = 4.1 See_Comment [A utomated message] The Eosinophils) system which ge nerated this result tra nsmitted reference range : <=4.0. The reference r samantha was not used to int erpret this result as normal/abnormal . [facility] CampusNpyrunbSBZDGBRMFO5907-05-53 20:10:00 Test Item Value Reference Range Interpretation Comments Basophils (test code = 0.6 See_Comment [Aut omated message] The Basophils) system which ge nerated this result tra nsmitted reference range : <=1.0. The reference r samantha was not used to int erpret this result as normal/abnormal . [facility] CampusGcpezrnQPGCMHLZYZ5864-86-30 20:10:00 Test Item Value Reference Range Interpretation Comments Neutrophils # (test code = Neutrophils 2.9 1.5-8.1 #) [facility] CampusPaeeezgCLZNTWEFXY8258-78-46 20:10:00 Test Item Value Reference Range Interpretation Comments Lymphocytes # (test code = Lymphocytes 0.5 1.0-5.5 #) [facility] CampusSyuurysWNSMDUVQJA0174-06-59 20:10:00 Test Item Value Reference Range Interpretation Comments Monocytes # (test code 0.6 See_Comment [Aut omated message] The = Monocytes #) system which generated this result tra nsmitted reference range : <=0.8. The reference r samantha was not used to int erpret this result as normal/abnormal . [facility] CampusOdexvfbRHBKXYCZIB0272-52-87 20:10:00 Test Item Value Reference Range Interpretation Comments Eosinophils # (test code 0.2 See_Comment [A utomated message] The = Eosinophils #) system [facility] h generated this result tra nsmitted reference range : <=0.5. The reference r samantha was not used to int erpret this result as normal/abnormal . [facility] CampusQlgtrchMZVHKJIWBT8278-25-76 20:10:00 Test Item Value Reference Range Interpretation Comments Anisocyte (test code = 1+ *ABN*(12/14/21 Anisocyte) 3:10 PM) [facility] CampusJdnbcbhVBWNYLPVSM0474-73-10 20:10:00 Test Item Value Reference Range Interpretation Comments Macrocyte (test code = 1+ *ABN*(12/14/21 Macrocyte) 3:10 PM) [facility] CenterTcgorbxZQRWEUQGVG3950-21-51 20:10:00 Test Item Value Reference Range Interpretation Comments Coronavirus (COVID-19) Detected MANUEL (test code = 4*ABN*(12/14/21 3:10 Coronavirus (COVID-19) PM) [facility]) [facility] [id number] 01:43:00 Test Item Value Reference Range Interpretation Comments Occult Bld Stl (test Negative (12/03/21 8:43 code = Occult Bld Stl) PM) [facility] [id number] 01:43:00 Test Item Value Reference Range Interpretation Comments Occult Bld Stl (test Negative (12/03/21 8:43 code = Occult Bld Stl) PM) [facility] [id number] 01:43:00 Test Item Value Reference Range Interpretation Comments Occult Bld Stl (test Negative (12/03/21 8:43 code = Occult Bld Stl) PM) [facility] [id number] 01:43:00 Test Item Value Reference Range Interpretation Comments Occult Bld Stl (test Negative (12/03/21 8:43 code = Occult Bld Stl) PM) [facility] [id number] 01:43:00 Test Item Value Reference Range Interpretation Comments Occult Bld Stl (test Negative (12/03/21 8:43 code = Occult Bld Stl) PM) [facility] [id number] 01:43:00 Test Item Value Reference Range Interpretation Comments Occult Bld Stl (test Negative (12/03/21 8:43 code = Occult Bld Stl) PM) [facility] [id number] 01:43:00 Test Item Value Reference Range Interpretation Comments Occult Bld Stl (test Negative (12/03/21 8:43 code = Occult Bld Stl) PM) [facility] [id number] 01:43:00 Test Item Value Reference Range Interpretation Comments Occult Bld Stl (test Negative (12/03/21 8:43 code = Occult Bld Stl) PM) [facility] [id number] 01:43:00 Test Item Value Reference Range Interpretation Comments Occult Bld Stl (test Negative (12/03/21 8:43 code = Occult Bld Stl) PM) [facility] [id number] 01:43:00 Test Item Value Reference Range Interpretation Comments Occult Bld Stl (test Negative (12/03/21 8:43 code = Occult Bld Stl) PM) [facility] AND [id number] 01:43:00 Test Item Value Reference Range Interpretation Comments Occult Bld Stl (test Negative (12/03/21 8:43 code = Occult Bld Stl) PM) [facility] AND [id number] 01:43:00 Test Item Value Reference Range Interpretation Comments Occult Bld Stl (test Negative (12/03/21 8:43 code = Occult Bld Stl) PM) [facility] [id number] 01:29:00 Test Item Value Reference Range Interpretation Comments RBC product (test code Product available = RBC product) 2(12/03/21 8:29 PM) [facility] [id number] 01:29:00 Test Item Value Reference Range Interpretation Comments RBC product (test code Product available = RBC product) 2(12/03/21 8:29 PM) [facility] [id number] 01:29:00 Test Item Value Reference Range Interpretation Comments RBC product (test code Product available = RBC product) 2(12/03/21 8:29 PM) [facility] [id number] 01:29:00 Test Item Value Reference Range Interpretation Comments RBC product (test code Product available = RBC product) 2(12/03/21 8:29 PM) [facility] [id number] 01:29:00 Test Item Value Reference Range Interpretation Comments RBC product (test code Product available = RBC product) 2(12/03/21 8:29 PM) [facility] [id number] 01:29:00 Test Item Value Reference Range Interpretation Comments RBC product (test code Product available = RBC product) 2(12/03/21 8:29 PM) [facility] [id number] 01:29:00 Test Item Value Reference Range Interpretation Comments RBC product (test code Product available = RBC product) 2(12/03/21 8:29 PM) [facility] [id number] 01:29:00 Test Item Value Reference Range Interpretation Comments RBC product (test code Product available = RBC product) 2(12/03/21 8:29 PM) [facility] [id number] 01:29:00 Test Item Value Reference Range Interpretation Comments RBC product (test code Product available = RBC product) 2(12/03/21 8:29 PM) [facility] [id number] 01:29:00 Test Item Value Reference Range Interpretation Comments RBC product (test code Product available = RBC product) 2(12/03/21 8:29 PM) [facility] [id number] 01:29:00 Test Item Value Reference Range Interpretation Comments RBC product (test code Product available = RBC product) 2(12/03/21 8:29 PM) [facility] [id number] 01:29:00 Test Item Value Reference Range Interpretation Comments RBC product (test code Product available = RBC product) 2(12/03/21 8:29 PM) [facility] [id number] 00:36:00 Test Item Value Reference Range Interpretation Comments ABO/Rh (test code = ABO/Rh) AB POS [facility] [id number] 00:36:00 Test Item Value Reference Range Interpretation Comments Antibody Scrn (test Negative (12/03/21 7:36 code = Antibody Scrn) PM) [facility] [id number] 00:36:00 Test Item Value Reference Range Interpretation Comments Glucose Lvl (test code = Glucose Lvl) 143 70-99 [facility] [id number] 00:36:00 Test Item Value Reference Range Interpretation Comments BUN (test code = BUN) 39 7-22 [facility] [id number] 00:36:00 Test Item Value Reference Range Interpretation Comments Creatinine Lvl (test code = Creatinine 5.46 0.50-1.40 Lvl) [facility] [id number] 00:36:00 Test Item Value Reference Range Interpretation Comments Sodium Lvl (test code = Sodium Lvl) 136 135-145 [facility] [id number] 00:36:00 Test Item Value Reference Range Interpretation Comments Potassium Lvl (test code = Potassium 4.2 3.5-5.1 Lvl) [facility]2022-07-07 00:36:00 Test Item Value Reference Range Interpretation Comments Chloride Lvl (test code = Chloride Lvl) 100 95-109 [place] 506282-07-07 00:36:00 Test Item Value Reference Range Interpretation Comments CO2 (test code = CO2) 27 24-32 [place] 506282-07-07 00:36:00 Test Item Value Reference Range Interpretation Comments Calcium Lvl (test code = Calcium Lvl) 8.9 8.5-10.5 [place] 506282-07-07 00:36:00 Test Item Value Reference Range Interpretation Comments AGAP (test code = AGAP) 13.2 10.0-20.0 [place] 506282-07-07 00:36:00 Test Item Value Reference Range Interpretation Comments eGFR (test code = eGFR) 10 [place] 155092-07-07 00:36:00 Test Item Value Reference Range Interpretation Comments WBC (test code = WBC) 2.5 3.7-10.4 [place] 155092-07-07 00:36:00 Test Item Value Reference Range Interpretation Comments RBC (test code = RBC) 1.97 4.70-6.10 [place] 155092-07-07 00:36:00 Test Item Value Reference Range Interpretation Comments Hgb (test code = Hgb) 7.1 14.0-18.0 [place] 155092-07-07 00:36:00 Test Item Value Reference Range Interpretation Comments Hct (test code = Hct) 20.6 42.0-54.0 [place] 155092-07-07 00:36:00 Test Item Value Reference Range Interpretation Comments MCV (test code = MCV) 105.0 80.0-94.0 [place] 155092-07-07 00:36:00 Test Item Value Reference Range Interpretation Comments MCH (test code = MCH) 36.2 pg 27.0-31.0 [place] 155092-07-07 00:36:00 Test Item Value Reference Range Interpretation Comments MCHC (test code = MCHC) 34.5 32.0-36.0 [place] 155092-07-07 00:36:00 Test Item Value Reference Range Interpretation Comments RDW (test code = RDW) 21.1 11.5-14.5 [place] 155092-07-07 00:36:00 Test Item Value Reference Range Interpretation Comments Platelet (test code = Platelet) 136 133-450 [place] 155092-07-07 00:36:00 Test Item Value Reference Range Interpretation Comments MPV (test code = MPV) 8.7 7.4-10.4 [place] 155092-07-07 00:36:00 Test Item Value Reference Range Interpretation Comments Segs (test code = Segs) 59.5 45.0-75.0 [place] 155092-07-07 00:36:00 Test Item Value Reference Range Interpretation Comments Lymphocytes (test code = Lymphocytes) 25.2 20.0-40.0 [place] 155092-07-07 00:36:00 Test Item Value Reference Range Interpretation Comments Monocytes (test code = Monocytes) 12.5 2.0-12.0 [place] 155092-07-07 00:36:00 Test Item Value Reference Range Interpretation Comments Eosinophils (test code = 2.1 See_Comment [A utomated message] The Eosinophils) system which ge nerated this result tra nsmitted reference range : <=4.0. The reference r samantha was not used to int erpret this result as normal/abnormal . [place] 155092-07-07 00:36:00 Test Item Value Reference Range Interpretation Comments Basophils (test code = 0.7 See_Comment [Aut omated message] The Basophils) system which ge nerated this result tra nsmitted reference range : <=1.0. The reference r samantha was not used to int erpret this result as normal/abnormal . [facility] C[id number] 00:36:00 Test Item Value Reference Range Interpretation Comments Neutrophils # (test code = Neutrophils 1.5 1.5-8.1 #) [facility] CampusOrnvopdCVFGLZHUPA2714-43-01 00:36:00 Test Item Value Reference Range Interpretation Comments Lymphocytes # (test code = Lymphocytes 0.6 1.0-5.5 #) [place] 155092-07-07 00:36:00 Test Item Value Reference Range Interpretation Comments Monocytes # (test code 0.3 See_Comment [Aut omated message] The = Monocytes #) system which generated this result tra nsmitted reference range : <=0.8. The reference r samantha was not used to int erpret this result as normal/abnormal . [facility] CenterNlpusvvYWOHLXHNCR2031-01-76 00:36:00 Test Item Value Reference Range Interpretation Comments Eosinophils # (test code 0.1 See_Comment [A utomated message] The = Eosinophils #) system whic h generated this result tra nsmitted reference range : <=0.5. The reference r samantha was not used to int erpret this result as normal/abnormal . [facility] [employer] [id number] 00:36:00 Test Item Value Reference Range Interpretation Comments ABO/Rh (test code = ABO/Rh) AB POS [facility] SU[employer] [id number] 00:36:00 Test Item Value Reference Range Interpretation Comments Antibody Scrn (test Negative (12/03/21 7:36 code = Antibody Scrn) PM) [facility] [employer] [id number] 00:36:00 Test Item Value Reference Range Interpretation Comments Glucose Lvl (test code = Glucose Lvl) 143 70-99 [facility] [employer] [id number] 00:36:00 Test Item Value Reference Range Interpretation Comments BUN (test code = BUN) 39 7-22 [facility] [employer] [id number] 00:36:00 Test Item Value Reference Range Interpretation Comments Creatinine Lvl (test code = Creatinine 5.46 0.50-1.40 Lvl) [facility] [employer] [id number] 00:36:00 Test Item Value Reference Range Interpretation Comments Sodium Lvl (test code = Sodium Lvl) 136 135-145 [facility] [employer] EHJIW2610-09-03 00:36:00 Test Item Value Reference Range Interpretation Comments Potassium Lvl (test code = Potassium 4.2 3.5-5.1 Lvl) [facility] [employer] [id number] 00:36:00 Test Item Value Reference Range Interpretation Comments Chloride Lvl (test code = Chloride Lvl) 100 95-109 [facility] [employer] [id number] 00:36:00 Test Item Value Reference Range Interpretation Comments CO2 (test code = CO2) 27 24-32 [facility] [employer] [id number] 00:36:00 Test Item Value Reference Range Interpretation Comments Calcium Lvl (test code = Calcium Lvl) 8.9 8.5-10.5 [facility]2022-07-07 00:36:00 Test Item Value Reference Range Interpretation Comments AGAP (test code = AGAP) 13.2 10.0-20.0 [facility]2022-07-07 00:36:00 Test Item Value Reference Range Interpretation Comments eGFR (test code = eGFR) 10 [facility] CampusJtdkinzEWISGMZTWB3906-16-22 00:36:00 Test Item Value Reference Range Interpretation Comments WBC (test code = WBC) 2.5 3.7-10.4 [facility] CampusEgwwqzlFZAIYMMRKI3638-54-60 00:36:00 Test Item Value Reference Range Interpretation Comments RBC (test code = RBC) 1.97 4.70-6.10 [facility] CampusBwvgjfxIQJYCEICAI4388-89-40 00:36:00 Test Item Value Reference Range Interpretation Comments Hgb (test code = Hgb) 7.1 14.0-18.0 [place] 155092-07-07 00:36:00 Test Item Value Reference Range Interpretation Comments Hct (test code = Hct) 20.6 42.0-54.0 [facility] CampusMegjajoMIGIGUMAQQ0441-89-15 00:36:00 Test Item Value Reference Range Interpretation Comments MCV (test code = MCV) 105.0 80.0-94.0 [facility] CampusYcamhtxUKJPFSZSPK3213-92-70 00:36:00 Test Item Value Reference Range Interpretation Comments MCH (test code = MCH) 36.2 pg 27.0-31.0 [facility] CampusTpunneuAXEGPJECJB4688-75-66 00:36:00 Test Item Value Reference Range Interpretation Comments MCHC (test code = MCHC) 34.5 32.0-36.0 [facility] CampusKzyzbkkUMUFEAKVCR8696-93-66 00:36:00 Test Item Value Reference Range Interpretation Comments RDW (test code = RDW) 21.1 11.5-14.5 [facility] CampusMeckiwuLYPRVDYRGC6910-36-66 00:36:00 Test Item Value Reference Range Interpretation Comments Platelet (test code = Platelet) 136 133-450 [facility] CampusBsxwavuUOGMOVALYX3261-27-42 00:36:00 Test Item Value Reference Range Interpretation Comments MPV (test code = MPV) 8.7 7.4-10.4 [facility] CampusEkqekxpOIGYUOBWQK7259-39-60 00:36:00 Test Item Value Reference Range Interpretation Comments Segs (test code = Segs) 59.5 45.0-75.0 [facility] CampusIjdmbjdFWOZMXEZGN1228-60-47 00:36:00 Test Item Value Reference Range Interpretation Comments Lymphocytes (test code = Lymphocytes) 25.2 20.0-40.0 [facility] CampusBguomsmANVUPDYTZE9163-91-60 00:36:00 Test Item Value Reference Range Interpretation Comments Monocytes (test code = Monocytes) 12.5 2.0-12.0 [facility] CampusJvdbftrVJIIBJHRVH4245-75-71 00:36:00 Test Item Value Reference Range Interpretation Comments Eosinophils (test code = 2.1 See_Comment [A utomated message] The Eosinophils) system which ge nerated this result tra nsmitted reference range : <=4.0. The reference r samantha was not used to int erpret this result as normal/abnormal . [facility] CampusIawpnysSEIGYNSYQR9597-28-90 00:36:00 Test Item Value Reference Range Interpretation Comments Basophils (test code = 0.7 See_Comment [Aut omated message] The Basophils) system which ge nerated this result tra nsmitted reference range : <=1.0. The reference r samantha was not used to int erpret this result as normal/abnormal . [facility] CampusWzxsbqkPKGKIFEEUB5571-82-63 00:36:00 Test Item Value Reference Range Interpretation Comments Neutrophils # (test code = Neutrophils 1.5 1.5-8.1 #) [place] 155092-07-07 00:36:00 Test Item Value Reference Range Interpretation Comments Lymphocytes # (test code = Lymphocytes 0.6 1.0-5.5 #) [place] 155092-07-07 00:36:00 Test Item Value Reference Range Interpretation Comments Monocytes # (test code 0.3 See_Comment [Aut omated message] The = Monocytes #) system which generated this result tra nsmitted reference range : <=0.8. The reference r samantha was not used to int erpret this result as normal/abnormal . [place] 155092-07-07 00:36:00 Test Item Value Reference Range Interpretation Comments Eosinophils # (test code 0.1 See_Comment [A utomated message] The = Eosinophils #) system whic h generated this result tra nsmitted reference range : <=0.5. The reference r samantha was not used to int erpret this result as normal/abnormal . [facility] [employer] [id number] 00:36:00 Test Item Value Reference Range Interpretation Comments ABO/Rh (test code = ABO/Rh) AB POS [facility] [employer] [id number] 00:36:00 Test Item Value Reference Range Interpretation Comments Antibody Scrn (test Negative (12/03/21 7:36 code = Antibody Scrn) PM) [facility] [employer] [id number] 00:36:00 Test Item Value Reference Range Interpretation Comments Glucose Lvl (test code = Glucose Lvl) 143 70-99 [facility] [employer] [id number] 00:36:00 Test Item Value Reference Range Interpretation Comments BUN (test code = BUN) 39 -22 [facility] [employer] [id number] 00:36:00 Test Item Value Reference Range Interpretation Comments Creatinine Lvl (test code = Creatinine 5.46 0.50-1.40 Lvl) [facility]2022-07-07 00:36:00 Test Item Value Reference Range Interpretation Comments Sodium Lvl (test code = Sodium Lvl) 136 135-145 [facility]2022-07-07 00:36:00 Test Item Value Reference Range Interpretation Comments Potassium Lvl (test code = Potassium 4.2 3.5-5.1 Lvl) [facility]2022-07-07 00:36:00 Test Item Value Reference Range Interpretation Comments Chloride Lvl (test code = Chloride Lvl) 100 95-109 [employer] [id number] 00:36:00 Test Item Value Reference Range Interpretation Comments CO2 (test code = CO2) 27 24-32 [facility]2022-07-07 00:36:00 Test Item Value Reference Range Interpretation Comments Calcium Lvl (test code = Calcium Lvl) 8.9 8.5-10.5 [employer] [id number] 00:36:00 Test Item Value Reference Range Interpretation Comments AGAP (test code = AGAP) 13.2 10.0-20.0 [facility] [employer] [id number] 00:36:00 Test Item Value Reference Range Interpretation Comments eGFR (test code = eGFR) 10 [facility]AgunudaZAGYOXFBQM1332-93-55 00:36:00 Test Item Value Reference Range Interpretation Comments WBC (test code = WBC) 2.5 3.7-10.4 [facility] CampusUsutfpqNIZAQGJEFE1264-86-80 00:36:00 Test Item Value Reference Range Interpretation Comments RBC (test code = RBC) 1.97 4.70-6.10 [facility] CampusRkunuykFIUFWBJQHZ3333-25-94 00:36:00 Test Item Value Reference Range Interpretation Comments Hgb (test code = Hgb) 7.1 14.0-18.0 [place] 155092-07-07 00:36:00 Test Item Value Reference Range Interpretation Comments Hct (test code = Hct) 20.6 42.0-54.0 [place] 155092-07-07 00:36:00 Test Item Value Reference Range Interpretation Comments MCV (test code = MCV) 105.0 80.0-94.0 [place] 155092-07-07 00:36:00 Test Item Value Reference Range Interpretation Comments MCH (test code = MCH) 36.2 pg 27.0-31.0 [facility] CampusWelhaylNVOHKKGEUM9196-04-21 00:36:00 Test Item Value Reference Range Interpretation Comments MCHC (test code = MCHC) 34.5 32.0-36.0 [facility] CampusFkxlcxaBYZJUIFCEI6549-17-95 00:36:00 Test Item Value Reference Range Interpretation Comments RDW (test code = RDW) 21.1 11.5-14.5 [place] 155092-07-07 00:36:00 Test Item Value Reference Range Interpretation Comments Platelet (test code = Platelet) 136 133-450 [facility] CampusZdzgruyJHWBQJWJWB8312-69-27 00:36:00 Test Item Value Reference Range Interpretation Comments MPV (test code = MPV) 8.7 7.4-10.4 [place] 155092-07-07 00:36:00 Test Item Value Reference Range Interpretation Comments Segs (test code = Segs) 59.5 45.0-75.0 [place] 155092-07-07 00:36:00 Test Item Value Reference Range Interpretation Comments Lymphocytes (test code = Lymphocytes) 25.2 20.0-40.0 [facility] CampusHxnjpamSAQLJOONKP6687-11-25 00:36:00 Test Item Value Reference Range Interpretation Comments Monocytes (test code = Monocytes) 12.5 2.0-12.0 [facility] CampusBouuhpdBLLSBQOZUT3119-95-97 00:36:00 Test Item Value Reference Range Interpretation Comments Eosinophils (test code = 2.1 See_Comment [A utomated message] The Eosinophils) system which ge nerated this result tra nsmitted reference range : <=4.0. The reference r samantha was not used to int erpret this result as normal/abnormal . [facility] CampusCfokbljFWUDMQMMAP9613-67-54 00:36:00 Test Item Value Reference Range Interpretation Comments Basophils (test code = 0.7 See_Comment [Aut omated message] The Basophils) system which ge nerated this result tra nsmitted reference range : <=1.0. The reference r samantha was not used to int erpret this result as normal/abnormal . [facility] CampusXhuszjaBPKOTDSXKG9819-70-90 00:36:00 Test Item Value Reference Range Interpretation Comments Neutrophils # (test code = Neutrophils 1.5 1.5-8.1 #) [facility] CampusKheovymTBVAVJPTLX8338-92-53 00:36:00 Test Item Value Reference Range Interpretation Comments Lymphocytes # (test code = Lymphocytes 0.6 1.0-5.5 #) [facility] CampusSatvhvcXAEOTRKLXM2196-08-35 00:36:00 Test Item Value Reference Range Interpretation Comments Monocytes # (test code 0.3 See_Comment [Aut omated message] The = Monocytes #) system which generated this result tra nsmitted reference range : <=0.8. The reference r samantha was not used to int erpret this result as normal/abnormal . [facility] CampusZpgeuhnDOIVRXSQSS2527-24-92 00:36:00 Test Item Value Reference Range Interpretation Comments Eosinophils # (test code 0.1 See_Comment [A utomated message] The = Eosinophils #) system whic h generated this result tra nsmitted reference range : <=0.5. The reference r samantha was not used to int erpret this result as normal/abnormal . [facility]Data[facility] AGDWTOC3859-30-27 00:36:00 Test Item Value Reference Range Interpretation Comments ABO/Rh (test code = ABO/Rh) AB POS [facility] MWGBFSB4577-46-15 00:36:00 Test Item Value Reference Range Interpretation Comments Antibody Scrn (test Negative (12/03/21 7:36 code = Antibody Scrn) PM) [facility]2022-07-07 00:36:00 Test Item Value Reference Range Interpretation Comments Glucose Lvl (test code = Glucose Lvl) 143 70-99 [facility]2022-07-07 00:36:00 Test Item Value Reference Range Interpretation Comments BUN (test code = BUN) 39 7-22 [facility]2022-07-07 00:36:00 Test Item Value Reference Range Interpretation Comments Creatinine Lvl (test code = Creatinine 5.46 0.50-1.40 Lvl) [facility]2022-07-07 00:36:00 Test Item Value Reference Range Interpretation Comments Sodium Lvl (test code = Sodium Lvl) 136 135-145 [facility]2022-07-07 00:36:00 Test Item Value Reference Range Interpretation Comments Potassium Lvl (test code = Potassium 4.2 3.5-5.1 Lvl) [facility]2022-07-07 00:36:00 Test Item Value Reference Range Interpretation Comments Chloride Lvl (test code = Chloride Lvl) 100 95-109 [facility]2022-07-07 00:36:00 Test Item Value Reference Range Interpretation Comments CO2 (test code = CO2) 27 24-32 [facility]2022-07-07 00:36:00 Test Item Value Reference Range Interpretation Comments Calcium Lvl (test code = Calcium Lvl) 8.9 8.5-10.5 [facility]2022-07-07 00:36:00 Test Item Value Reference Range Interpretation Comments AGAP (test code = AGAP) 13.2 10.0-20.0 [facility]2022-07-07 00:36:00 Test Item Value Reference Range Interpretation Comments eGFR (test code = eGFR) 10 [facility] CampusYgcsctsRYIVIGPOLR2181-72-91 00:36:00 Test Item Value Reference Range Interpretation Comments WBC (test code = WBC) 2.5 3.7-10.4 [place] 155092-07-07 00:36:00 Test Item Value Reference Range Interpretation Comments RBC (test code = RBC) 1.97 4.70-6.10 [facility] CampusTyngiobKXSDOIANMK4225-61-18 00:36:00 Test Item Value Reference Range Interpretation Comments Hgb (test code = Hgb) 7.1 14.0-18.0 [facility] CampusFcwwlkyULRZPEOFAM3482-94-96 00:36:00 Test Item Value Reference Range Interpretation Comments Hct (test code = Hct) 20.6 42.0-54.0 [facility] CampusRtieoydXMRGKBBLLO4612-73-38 00:36:00 Test Item Value Reference Range Interpretation Comments MCV (test code = MCV) 105.0 80.0-94.0 [facility] CampusIdvdyooEJFFLMMBJT4057-23-48 00:36:00 Test Item Value Reference Range Interpretation Comments MCH (test code = MCH) 36.2 pg 27.0-31.0 [facility] CampusNdattaoOCJQJONTWV6526-53-81 00:36:00 Test Item Value Reference Range Interpretation Comments MCHC (test code = MCHC) 34.5 32.0-36.0 [facility] CampusTyctpusGDIUKKAOVH7507-33-59 00:36:00 Test Item Value Reference Range Interpretation Comments RDW (test code = RDW) 21.1 11.5-14.5 [facility] CampusKontrbjPDCTXZZZFN8936-93-94 00:36:00 Test Item Value Reference Range Interpretation Comments Platelet (test code = Platelet) 136 133-450 [facility] CampusAqhkjznFEWUGVDFZI8360-57-99 00:36:00 Test Item Value Reference Range Interpretation Comments MPV (test code = MPV) 8.7 7.4-10.4 [facility] CampusUwlbkoaKBXMHFXIQL5316-95-30 00:36:00 Test Item Value Reference Range Interpretation Comments Segs (test code = Segs) 59.5 45.0-75.0 [facility] CampusFvskhcjVYNJGNTPMV3007-30-93 00:36:00 Test Item Value Reference Range Interpretation Comments Lymphocytes (test code = Lymphocytes) 25.2 20.0-40.0 [facility] CampusWtpiwuvLDUVOQTUZW0386-89-09 00:36:00 Test Item Value Reference Range Interpretation Comments Monocytes (test code = Monocytes) 12.5 2.0-12.0 [facility] CampusMmnhbkrYUVTDLDUPO2647-88-35 00:36:00 Test Item Value Reference Range Interpretation Comments Eosinophils (test code = 2.1 See_Comment [A utomated message] The Eosinophils) system which ge nerated this result tra nsmitted reference range : <=4.0. The reference r samantha was not used to int erpret this result as normal/abnormal . [facility] CenterVtrtwszLMPKQOWAUM6004-76-19 00:36:00 Test Item Value Reference Range Interpretation Comments Basophils (test code = 0.7 See_Comment [Aut omated message] The Basophils) system which ge nerated this result tra nsmitted reference range : <=1.0. The reference r samantha was not used to int erpret this result as normal/abnormal . [facility] CenterUqixhrkZPHHQNFCJI6221-59-64 00:36:00 Test Item Value Reference Range Interpretation Comments Neutrophils # (test code = Neutrophils 1.5 1.5-8.1 #) [facility] CampusDniwqixHLTQZBCSXJ8365-08-67 00:36:00 Test Item Value Reference Range Interpretation Comments Lymphocytes # (test code = Lymphocytes 0.6 1.0-5.5 #) [facility] CampusGtsweekVATYVXSKWA4538-33-15 00:36:00 Test Item Value Reference Range Interpretation Comments Monocytes # (test code 0.3 See_Comment [Aut omated message] The = Monocytes #) system which generated this result tra nsmitted reference range : <=0.8. The reference r samantha was not used to int erpret this result as normal/abnormal . [facility] CenterTdkpvkeSLAGVITSQD7127-57-13 00:36:00 Test Item Value Reference Range Interpretation Comments Eosinophils # (test code 0.1 See_Comment [A utomated message] The = Eosinophils #) system whic h generated this result tra nsmitted reference range : <=0.5. The reference r samantha was not used to int erpret this result as normal/abnormal . [facility] SUPR OPYBGLD5980-30-47 00:36:00 Test Item Value Reference Range Interpretation Comments ABO/Rh (test code = ABO/Rh) AB POS [facility] SUPR OUMNADJ5367-39-64 00:36:00 Test Item Value Reference Range Interpretation Comments Antibody Scrn (test Negative (12/03/21 7:36 code = Antibody Scrn) PM) [facility] [employer]2022-07-07 00:36:00 Test Item Value Reference Range Interpretation Comments Glucose Lvl (test code = Glucose Lvl) 143 70-99 [facility] [employer]2022-07-07 00:36:00 Test Item Value Reference Range Interpretation Comments BUN (test code = BUN) 39 7-22 [place] 506282-07-07 00:36:00 Test Item Value Reference Range Interpretation Comments Creatinine Lvl (test code = Creatinine 5.46 0.50-1.40 Lvl) [place] 506282-07-07 00:36:00 Test Item Value Reference Range Interpretation Comments Sodium Lvl (test code = Sodium Lvl) 136 135-145 [place] 506282-07-07 00:36:00 Test Item Value Reference Range Interpretation Comments Potassium Lvl (test code = Potassium 4.2 3.5-5.1 Lvl) [facility]2022-07-07 00:36:00 Test Item Value Reference Range Interpretation Comments Chloride Lvl (test code = Chloride Lvl) 100 95-109 [facility]2022-07-07 00:36:00 Test Item Value Reference Range Interpretation Comments CO2 (test code = CO2) 27 24-32 [place] 506282-07-07 00:36:00 Test Item Value Reference Range Interpretation Comments Calcium Lvl (test code = Calcium Lvl) 8.9 8.5-10.5 [facility]2022-07-07 00:36:00 Test Item Value Reference Range Interpretation Comments AGAP (test code = AGAP) 13.2 10.0-20.0 [place] 506282-07-07 00:36:00 Test Item Value Reference Range Interpretation Comments eGFR (test code = eGFR) 10 [facility] CampusVyiuqekXHLMHGYCCW5688-50-10 00:36:00 Test Item Value Reference Range Interpretation Comments WBC (test code = WBC) 2.5 3.7-10.4 [place] 155092-07-07 00:36:00 Test Item Value Reference Range Interpretation Comments RBC (test code = RBC) 1.97 4.70-6.10 [place] 155092-07-07 00:36:00 Test Item Value Reference Range Interpretation Comments Hgb (test code = Hgb) 7.1 14.0-18.0 [place] 155092-07-07 00:36:00 Test Item Value Reference Range Interpretation Comments Hct (test code = Hct) 20.6 42.0-54.0 [facility]HgdzfqxHROSBTAEJI8009-96-63 00:36:00 Test Item Value Reference Range Interpretation Comments MCV (test code = MCV) 105.0 80.0-94.0 [facility] CenterNhdsttjBYCRNLUXHC5000-95-03 00:36:00 Test Item Value Reference Range Interpretation Comments MCH (test code = MCH) 36.2 pg 27.0-31.0 [facility] CenterLebulonUKRPNPWKUB8049-60-25 00:36:00 Test Item Value Reference Range Interpretation Comments MCHC (test code = MCHC) 34.5 32.0-36.0 [facility] SlmygtoBDPGKXWHUS3537-25-09 00:36:00 Test Item Value Reference Range Interpretation Comments RDW (test code = RDW) 21.1 11.5-14.5 [facility] SUPR XMMMTZJ1819-96-00 00:36:00 Test Item Value Reference Range Interpretation Comments ABO/Rh (test code = ABO/Rh) AB POS [facility] SUPR [id number] 00:36:00 Test Item Value Reference Range Interpretation Comments Antibody Scrn (test Negative (12/03/21 7:36 code = Antibody Scrn) PM) [facility] [employer] MBIWB2824-48-95 00:36:00 Test Item Value Reference Range Interpretation Comments Glucose Lvl (test code = Glucose Lvl) 143 70-99 [facility] [employer] TUMFX1854-24-79 00:36:00 Test Item Value Reference Range Interpretation Comments BUN (test code = BUN) 39 7-22 [facility] [employer] [id number] 00:36:00 Test Item Value Reference Range Interpretation Comments Creatinine Lvl (test code = Creatinine 5.46 0.50-1.40 Lvl) [employer] BZEZM5716-54-53 00:36:00 Test Item Value Reference Range Interpretation Comments Sodium Lvl (test code = Sodium Lvl) 136 135-145 [employer]2022-07-07 00:36:00 Test Item Value Reference Range Interpretation Comments Potassium Lvl (test code = Potassium 4.2 3.5-5.1 Lvl) [facility] [employer] [id number] 00:36:00 Test Item Value Reference Range Interpretation Comments Chloride Lvl (test code = Chloride Lvl) 100 95-109 [employer] GOFVW3052-44-58 00:36:00 Test Item Value Reference Range Interpretation Comments CO2 (test code = CO2) 27 24-32 [facility] QUEMY1385-28-23 00:36:00 Test Item Value Reference Range Interpretation Comments Calcium Lvl (test code = Calcium Lvl) 8.9 8.5-10.5 [facility] CampusHlnsvkpQNXXPDJSJF4363-26-99 00:36:00 Test Item Value Reference Range Interpretation Comments Platelet (test code = Platelet) 136 133-450 [facility] LVNLE1522-04-92 00:36:00 Test Item Value Reference Range Interpretation Comments AGAP (test code = AGAP) 13.2 10.0-20.0 [facility] GMSPI9765-09-36 00:36:00 Test Item Value Reference Range Interpretation Comments eGFR (test code = eGFR) 10 [facility] CampusRkhgxnlKEKPLHTNEJ5310-12-40 00:36:00 Test Item Value Reference Range Interpretation Comments WBC (test code = WBC) 2.5 3.7-10.4 [facility] CampusZvcfriwUBIBKOCLGI9107-96-63 00:36:00 Test Item Value Reference Range Interpretation Comments RBC (test code = RBC) 1.97 4.70-6.10 [facility] CampusLteheqbMKSATCLAUP4204-09-86 00:36:00 Test Item Value Reference Range Interpretation Comments Hgb (test code = Hgb) 7.1 14.0-18.0 [facility] CampusWuhaxdgHDNPHMHJBK6834-62-16 00:36:00 Test Item Value Reference Range Interpretation Comments Hct (test code = Hct) 20.6 42.0-54.0 [facility] CampusQvebariLBCRFVHMGR4852-43-10 00:36:00 Test Item Value Reference Range Interpretation Comments MCV (test code = MCV) 105.0 80.0-94.0 [place] 155092-07-07 00:36:00 Test Item Value Reference Range Interpretation Comments MCH (test code = MCH) 36.2 pg 27.0-31.0 [facility] CampusSqfgigwCFVPQSWNAM2900-14-28 00:36:00 Test Item Value Reference Range Interpretation Comments MCHC (test code = MCHC) 34.5 32.0-36.0 [place] 155092-07-07 00:36:00 Test Item Value Reference Range Interpretation Comments RDW (test code = RDW) 21.1 11.5-14.5 [place] 155092-07-07 00:36:00 Test Item Value Reference Range Interpretation Comments MPV (test code = MPV) 8.7 7.4-10.4 [place] 155092-07-07 00:36:00 Test Item Value Reference Range Interpretation Comments Platelet (test code = Platelet) 136 133-450 [place] 155092-07-07 00:36:00 Test Item Value Reference Range Interpretation Comments MPV (test code = MPV) 8.7 7.4-10.4 [facility] CampusXcrrapnRGEHTFRUPR2750-51-12 00:36:00 Test Item Value Reference Range Interpretation Comments Segs (test code = Segs) 59.5 45.0-75.0 [place] 155092-07-07 00:36:00 Test Item Value Reference Range Interpretation Comments Lymphocytes (test code = Lymphocytes) 25.2 20.0-40.0 [place] 155092-07-07 00:36:00 Test Item Value Reference Range Interpretation Comments Monocytes (test code = Monocytes) 12.5 2.0-12.0 [place] 155092-07-07 00:36:00 Test Item Value Reference Range Interpretation Comments Eosinophils (test code = 2.1 See_Comment [A utomated message] The Eosinophils) system which ge nerated this result tra nsmitted reference range : <=4.0. The reference r samantha was not used to int erpret this result as normal/abnormal . [facility] CampusOhcpyioZANJKNGDNM1788-75-31 00:36:00 Test Item Value Reference Range Interpretation Comments Basophils (test code = 0.7 See_Comment [Aut omated message] The Basophils) system which ge nerated this result tra nsmitted reference range : <=1.0. The reference r samantha was not used to int erpret this result as normal/abnormal . [facility] CampusUfgdcfeIKSLHXXSRS1482-87-71 00:36:00 Test Item Value Reference Range Interpretation Comments Neutrophils # (test code = Neutrophils 1.5 1.5-8.1 #) [place] 155092-07-07 00:36:00 Test Item Value Reference Range Interpretation Comments Lymphocytes # (test code = Lymphocytes 0.6 1.0-5.5 #) [facility] CampusKivhfunMMALRNQHTO7582-40-13 00:36:00 Test Item Value Reference Range Interpretation Comments Monocytes # (test code 0.3 See_Comment [Aut omated message] The = Monocytes #) system which generated this result tra nsmitted reference range : <=0.8. The reference r samantha was not used to int erpret this result as normal/abnormal . [facility] CampusIrjpfdjTIZREVIMYF1574-71-35 00:36:00 Test Item Value Reference Range Interpretation Comments Segs (test code = Segs) 59.5 45.0-75.0 [facility] CampusQyscpmkVMJZLUATZW1328-87-25 00:36:00 Test Item Value Reference Range Interpretation Comments Eosinophils # (test code 0.1 See_Comment [A utomated message] The = Eosinophils #) system whic h generated this result tra nsmitted reference range : <=0.5. The reference r samantha was not used to int erpret this result as normal/abnormal . [facility] CampusRlhdxemLWOFQUIIUF6099-57-29 00:36:00 Test Item Value Reference Range Interpretation Comments Lymphocytes (test code = Lymphocytes) 25.2 20.0-40.0 [facility] CampusXjirhjvEBAMDYEBHU9821-57-90 00:36:00 Test Item Value Reference Range Interpretation Comments Monocytes (test code = Monocytes) 12.5 2.0-12.0 [facility] CampusKpeukxsCJCPCQCTCG1744-35-49 00:36:00 Test Item Value Reference Range Interpretation Comments Eosinophils (test code = 2.1 See_Comment [A utomated message] The Eosinophils) system which ge nerated this result tra nsmitted reference range : <=4.0. The reference r samantha was not used to int erpret this result as normal/abnormal . [facility] CampusQnhmmqlGMZEBHKBEG6342-75-53 00:36:00 Test Item Value Reference Range Interpretation Comments Basophils (test code = 0.7 See_Comment [Aut omated message] The Basophils) system which ge nerated this result tra nsmitted reference range : <=1.0. The reference r samantha was not used to int erpret this result as normal/abnormal . [facility] CampusIxfoxnbOXGREUGNVS0324-04-41 00:36:00 Test Item Value Reference Range Interpretation Comments Neutrophils # (test code = Neutrophils 1.5 1.5-8.1 #) [facility] CampusFeejcldBMRJITOFYF8508-47-99 00:36:00 Test Item Value Reference Range Interpretation Comments Lymphocytes # (test code = Lymphocytes 0.6 1.0-5.5 #) [facility] CenterEmvowbcVBLIYZOUVB1835-73-02 00:36:00 Test Item Value Reference Range Interpretation Comments Monocytes # (test code 0.3 See_Comment [Aut omated message] The = Monocytes #) system which generated this result tra nsmitted reference range : <=0.8. The reference r samantha was not used to int erpret this result as normal/abnormal . [facility] CenterTtbpuviSNZDAYHZOK7738-20-17 00:36:00 Test Item Value Reference Range Interpretation Comments Eosinophils # (test code 0.1 See_Comment [A utomated message] The = Eosinophils #) system whic h generated this result tra nsmitted reference range : <=0.5. The reference r samantha was not used to int erpret this result as normal/abnormal . [facility] mPowa2022-07-07 00:36:00 Test Item Value Reference Range Interpretation Comments ABO/Rh (test code = ABO/Rh) AB POS [facility] SUPR [id number] 00:36:00 Test Item Value Reference Range Interpretation Comments Antibody Scrn (test Negative (12/03/21 7:36 code = Antibody Scrn) PM) [facility] CenterDispatch [id number] 00:36:00 Test Item Value Reference Range Interpretation Comments Glucose Lvl (test code = Glucose Lvl) 143 70-99 [facility] [employer] [id number] 00:36:00 Test Item Value Reference Range Interpretation Comments BUN (test code = BUN) 39 7-22 [facility] [employer] XGQRV4879-82-03 00:36:00 Test Item Value Reference Range Interpretation Comments Creatinine Lvl (test code = Creatinine 5.46 0.50-1.40 Lvl) [facility] [employer] [id number] 00:36:00 Test Item Value Reference Range Interpretation Comments Sodium Lvl (test code = Sodium Lvl) 136 135-145 [facility] [employer] [id number] 00:36:00 Test Item Value Reference Range Interpretation Comments Potassium Lvl (test code = Potassium 4.2 3.5-5.1 Lvl) [facility] [employer] [id number] 00:36:00 Test Item Value Reference Range Interpretation Comments Chloride Lvl (test code = Chloride Lvl) 100 95-109 [facility]2022-07-07 00:36:00 Test Item Value Reference Range Interpretation Comments CO2 (test code = CO2) 27 24-32 [facility] [id number] 00:36:00 Test Item Value Reference Range Interpretation Comments Calcium Lvl (test code = Calcium Lvl) 8.9 8.5-10.5 [facility]2022-07-07 00:36:00 Test Item Value Reference Range Interpretation Comments AGAP (test code = AGAP) 13.2 10.0-20.0 [facility]2022-07-07 00:36:00 Test Item Value Reference Range Interpretation Comments eGFR (test code = eGFR) 10 [facility] CampusXkxbvbjCZWZPIUINP7028-13-29 00:36:00 Test Item Value Reference Range Interpretation Comments WBC (test code = WBC) 2.5 3.7-10.4 [facility] CampusXmvslrfHDARLSWCUL1425-86-89 00:36:00 Test Item Value Reference Range Interpretation Comments RBC (test code = RBC) 1.97 4.70-6.10 [facility]LtpaprdKIUIXCZOKV0099-84-10 00:36:00 Test Item Value Reference Range Interpretation Comments Hgb (test code = Hgb) 7.1 14.0-18.0 [place] 155092-07-07 00:36:00 Test Item Value Reference Range Interpretation Comments Hct (test code = Hct) 20.6 42.0-54.0 [facility] CampusVwdwvzoQSGSWEXIAZ2303-48-63 00:36:00 Test Item Value Reference Range Interpretation Comments MCV (test code = MCV) 105.0 80.0-94.0 [place] 155092-07-07 00:36:00 Test Item Value Reference Range Interpretation Comments MCH (test code = MCH) 36.2 pg 27.0-31.0 [place] 155092-07-07 00:36:00 Test Item Value Reference Range Interpretation Comments MCHC (test code = MCHC) 34.5 32.0-36.0 [place] 155092-07-07 00:36:00 Test Item Value Reference Range Interpretation Comments RDW (test code = RDW) 21.1 11.5-14.5 [place] 155092-07-07 00:36:00 Test Item Value Reference Range Interpretation Comments Platelet (test code = Platelet) 136 133-450 [facility] CampusDxotqodKRIYYNFZLV2052-20-38 00:36:00 Test Item Value Reference Range Interpretation Comments MPV (test code = MPV) 8.7 7.4-10.4 [facility] CampusYlvqhgnVECPVTSFAP5024-31-98 00:36:00 Test Item Value Reference Range Interpretation Comments Segs (test code = Segs) 59.5 45.0-75.0 [facility] CampusXrzyfdcRWGMDAUQLM7923-34-50 00:36:00 Test Item Value Reference Range Interpretation Comments Lymphocytes (test code = Lymphocytes) 25.2 20.0-40.0 [place] 155092-07-07 00:36:00 Test Item Value Reference Range Interpretation Comments Monocytes (test code = Monocytes) 12.5 2.0-12.0 [place] 155092-07-07 00:36:00 Test Item Value Reference Range Interpretation Comments Eosinophils (test code = 2.1 See_Comment [A utomated message] The Eosinophils) system which ge nerated this result tra nsmitted reference range : <=4.0. The reference r samantha was not used to int erpret this result as normal/abnormal . [facility] CampusKayaamxLWLHDQHGTW3946-57-23 00:36:00 Test Item Value Reference Range Interpretation Comments Basophils (test code = 0.7 See_Comment [Aut omated message] The Basophils) system which ge nerated this result tra nsmitted reference range : <=1.0. The reference r samantha was not used to int erpret this result as normal/abnormal . [facility] CampusMgagvkqMDAHEDTBYG8257-51-45 00:36:00 Test Item Value Reference Range Interpretation Comments Neutrophils # (test code = Neutrophils 1.5 1.5-8.1 #) [facility] CampusSgjpvwbEIIQQFWRGD0690-55-71 00:36:00 Test Item Value Reference Range Interpretation Comments Lymphocytes # (test code = Lymphocytes 0.6 1.0-5.5 #) [facility] CampusImgvxfqOLYIIZYCHE0026-88-69 00:36:00 Test Item Value Reference Range Interpretation Comments Monocytes # (test code 0.3 See_Comment [Aut omated message] The = Monocytes #) system which generated this result tra nsmitted reference range : <=0.8. The reference r samantha was not used to int erpret this result as normal/abnormal . [facility]CjogeuwIXFMZSOTXN6772-60-82 00:36:00 Test Item Value Reference Range Interpretation Comments Eosinophils # (test code 0.1 See_Comment [A utomated message] The = Eosinophils #) system whic h generated this result tra nsmitted reference range : <=0.5. The reference r samantha was not used to int erpret this result as normal/abnormal . [facility] [employer] [facility] CBYZMJZ7511-74-53 00:36:00 Test Item Value Reference Range Interpretation Comments ABO/Rh (test code = ABO/Rh) AB POS [facility] [employer] [facility] [id number] 00:36:00 Test Item Value Reference Range Interpretation Comments Antibody Scrn (test Negative (12/03/21 7:36 code = Antibody Scrn) PM) [facility] [employer] [id number] 00:36:00 Test Item Value Reference Range Interpretation Comments Glucose Lvl (test code = Glucose Lvl) 143 70-99 [facility] [employer] [id number] 00:36:00 Test Item Value Reference Range Interpretation Comments BUN (test code = BUN) 39 7-22 [facility] [id number] 00:36:00 Test Item Value Reference Range Interpretation Comments Creatinine Lvl (test code = Creatinine 5.46 0.50-1.40 Lvl) [facility] [employer] [id number] 00:36:00 Test Item Value Reference Range Interpretation Comments Sodium Lvl (test code = Sodium Lvl) 136 135-145 [facility] [employer] [id number] 00:36:00 Test Item Value Reference Range Interpretation Comments Potassium Lvl (test code = Potassium 4.2 3.5-5.1 Lvl) [facility] [employer] RIZKC2406-01-14 00:36:00 Test Item Value Reference Range Interpretation Comments Chloride Lvl (test code = Chloride Lvl) 100 95-109 [facility] [employer] [id number] 00:36:00 Test Item Value Reference Range Interpretation Comments CO2 (test code = CO2) 27 24-32 [facility] [employer] [id number] 00:36:00 Test Item Value Reference Range Interpretation Comments Calcium Lvl (test code = Calcium Lvl) 8.9 8.5-10.5 [facility]2022-07-07 00:36:00 Test Item Value Reference Range Interpretation Comments AGAP (test code = AGAP) 13.2 10.0-20.0 [facility] [id number] 00:36:00 Test Item Value Reference Range Interpretation Comments eGFR (test code = eGFR) 10 [facility] CampusIcxazmcVTZFMUTRWH9873-14-32 00:36:00 Test Item Value Reference Range Interpretation Comments WBC (test code = WBC) 2.5 3.7-10.4 [facility] CampusMewxaisCUOAURVEEJ4503-76-16 00:36:00 Test Item Value Reference Range Interpretation Comments RBC (test code = RBC) 1.97 4.70-6.10 [facility] CampusMnmqqmzMCQCPHMJXL6301-12-51 00:36:00 Test Item Value Reference Range Interpretation Comments Hgb (test code = Hgb) 7.1 14.0-18.0 [facility] CampusActbviuRPRLVTAXYJ3580-59-12 00:36:00 Test Item Value Reference Range Interpretation Comments Hct (test code = Hct) 20.6 42.0-54.0 [facility] CampusMjdlncgQXGDBQGTXM9512-53-58 00:36:00 Test Item Value Reference Range Interpretation Comments MCV (test code = MCV) 105.0 80.0-94.0 [facility] CampusSsyzuenENJKPDRYHQ4336-44-21 00:36:00 Test Item Value Reference Range Interpretation Comments MCH (test code = MCH) 36.2 pg 27.0-31.0 [facility] CampusQounggzFZCHAYIXQO4065-15-61 00:36:00 Test Item Value Reference Range Interpretation Comments MCHC (test code = MCHC) 34.5 32.0-36.0 [facility] CampusRogjpppAOKAQEKQGO2774-03-19 00:36:00 Test Item Value Reference Range Interpretation Comments RDW (test code = RDW) 21.1 11.5-14.5 [facility] CampusRbokiweVKTDGQQQUY1671-89-73 00:36:00 Test Item Value Reference Range Interpretation Comments Platelet (test code = Platelet) 136 133-450 [facility] CampusPrehpkuCXPYMRHRMV6205-19-09 00:36:00 Test Item Value Reference Range Interpretation Comments MPV (test code = MPV) 8.7 7.4-10.4 [facility] CampusHrcnfjzLFQIQTTDBL8119-53-80 00:36:00 Test Item Value Reference Range Interpretation Comments Segs (test code = Segs) 59.5 45.0-75.0 [facility] CampusOftlhcpRYJQAUQWCG5108-69-47 00:36:00 Test Item Value Reference Range Interpretation Comments Lymphocytes (test code = Lymphocytes) 25.2 20.0-40.0 [facility] CampusXyikwtnZONXVOSXTW5713-08-80 00:36:00 Test Item Value Reference Range Interpretation Comments Monocytes (test code = Monocytes) 12.5 2.0-12.0 [facility] CampusArkqbwgUJOWPSACVO5498-43-97 00:36:00 Test Item Value Reference Range Interpretation Comments Eosinophils (test code = 2.1 See_Comment [A utomated message] The Eosinophils) system which ge nerated this result tra nsmitted reference range : <=4.0. The reference r samantha was not used to int erpret this result as normal/abnormal . [facility] CampusEdkwlahVQYCVNZWFM8958-64-26 00:36:00 Test Item Value Reference Range Interpretation Comments Basophils (test code = 0.7 See_Comment [Aut omated message] The Basophils) system which ge nerated this result tra nsmitted reference range : <=1.0. The reference r samantha was not used to int erpret this result as normal/abnormal . [facility] CampusDocsogaMTXFEVMQPM7226-40-02 00:36:00 Test Item Value Reference Range Interpretation Comments Neutrophils # (test code = Neutrophils 1.5 1.5-8.1 #) [facility] CampusBcwxtbwRQLFTBVUZB6707-43-05 00:36:00 Test Item Value Reference Range Interpretation Comments Lymphocytes # (test code = Lymphocytes 0.6 1.0-5.5 #) [place] 155092-07-07 00:36:00 Test Item Value Reference Range Interpretation Comments Monocytes # (test code 0.3 See_Comment [Aut omated message] The = Monocytes #) system which generated this result tra nsmitted reference range : <=0.8. The reference r samantha was not used to int erpret this result as normal/abnormal . [facility] CampusSgmazntQMNMOMWKOV7560-51-33 00:36:00 Test Item Value Reference Range Interpretation Comments Eosinophils # (test code 0.1 See_Comment [A utomated message] The = Eosinophils #) system [facility] h generated this result tra nsmitted reference range : <=0.5. The reference r samantha was not used to int erpret this result as normal/abnormal . [facility] CenterMemobead Technologies [facility] [id number] 00:36:00 Test Item Value Reference Range Interpretation Comments ABO/Rh (test code = ABO/Rh) AB POS [facility] [id number] 00:36:00 Test Item Value Reference Range Interpretation Comments Antibody Scrn (test Negative (12/03/21 7:36 code = Antibody Scrn) PM) [facility]Dispatch [id number] 00:36:00 Test Item Value Reference Range Interpretation Comments Glucose Lvl (test code = Glucose Lvl) 143 70-99 [facility] [id number] 00:36:00 Test Item Value Reference Range Interpretation Comments BUN (test code = BUN) 39 7-22 [facility] Center[facility] [id number] 00:36:00 Test Item Value Reference Range Interpretation Comments Creatinine Lvl (test code = Creatinine 5.46 0.50-1.40 Lvl) [facility] [id number] 00:36:00 Test Item Value Reference Range Interpretation Comments Sodium Lvl (test code = Sodium Lvl) 136 135-145 [facility] [id number] 00:36:00 Test Item Value Reference Range Interpretation Comments Potassium Lvl (test code = Potassium 4.2 3.5-5.1 Lvl) [facility] [id number] 00:36:00 Test Item Value Reference Range Interpretation Comments Chloride Lvl (test code = Chloride Lvl) 100 95-109 [facility] [id number] 00:36:00 Test Item Value Reference Range Interpretation Comments CO2 (test code = CO2) 27 24-32 [facility] [id number] 00:36:00 Test Item Value Reference Range Interpretation Comments Calcium Lvl (test code = Calcium Lvl) 8.9 8.5-10.5 [facility] [id number] 00:36:00 Test Item Value Reference Range Interpretation Comments AGAP (test code = AGAP) 13.2 10.0-20.0 [facility] CenterDispatch [id number] 00:36:00 Test Item Value Reference Range Interpretation Comments eGFR (test code = eGFR) 10 [facility] HospitalDskrnnoXBDOFNPQTM8605-98-38 00:36:00 Test Item Value Reference Range Interpretation Comments WBC (test code = WBC) 2.5 3.7-10.4 [facility] CampusWsgidtnOLTUJUFNZY7573-63-18 00:36:00 Test Item Value Reference Range Interpretation Comments RBC (test code = RBC) 1.97 4.70-6.10 [facility] CampusSytsbfuZHUSIITKOI6759-61-73 00:36:00 Test Item Value Reference Range Interpretation Comments Hgb (test code = Hgb) 7.1 14.0-18.0 [place] 155092-07-07 00:36:00 Test Item Value Reference Range Interpretation Comments Hct (test code = Hct) 20.6 42.0-54.0 [facility] CampusNfiywtuPGZZEUULMX0359-77-79 00:36:00 Test Item Value Reference Range Interpretation Comments MCV (test code = MCV) 105.0 80.0-94.0 [facility] CampusTwsixkqHXVMSPTPCJ9222-77-27 00:36:00 Test Item Value Reference Range Interpretation Comments MCH (test code = MCH) 36.2 pg 27.0-31.0 [place] 155092-07-07 00:36:00 Test Item Value Reference Range Interpretation Comments MCHC (test code = MCHC) 34.5 32.0-36.0 [facility] CampusMrjynntRLPRSLRUYS8119-73-21 00:36:00 Test Item Value Reference Range Interpretation Comments RDW (test code = RDW) 21.1 11.5-14.5 [place] 155092-07-07 00:36:00 Test Item Value Reference Range Interpretation Comments Platelet (test code = Platelet) 136 133-450 [facility] CampusJjvhtjwTQSYLZSYQY1219-87-07 00:36:00 Test Item Value Reference Range Interpretation Comments MPV (test code = MPV) 8.7 7.4-10.4 [place] 155092-07-07 00:36:00 Test Item Value Reference Range Interpretation Comments Segs (test code = Segs) 59.5 45.0-75.0 [place] 155092-07-07 00:36:00 Test Item Value Reference Range Interpretation Comments Lymphocytes (test code = Lymphocytes) 25.2 20.0-40.0 [place] 155092-07-07 00:36:00 Test Item Value Reference Range Interpretation Comments Monocytes (test code = Monocytes) 12.5 2.0-12.0 [facility] CampusQiijuolRYBIKESQEJ9698-42-32 00:36:00 Test Item Value Reference Range Interpretation Comments Eosinophils (test code = 2.1 See_Comment [A utomated message] The Eosinophils) system which ge nerated this result tra nsmitted reference range : <=4.0. The reference r samantha was not used to int erpret this result as normal/abnormal . [facility] CampusPyigqlaWGKDXCSLER1493-89-34 00:36:00 Test Item Value Reference Range Interpretation Comments Basophils (test code = 0.7 See_Comment [Aut omated message] The Basophils) system which ge nerated this result tra nsmitted reference range : <=1.0. The reference r samantha was not used to int erpret this result as normal/abnormal . [facility] CampusExqefafDUFJGQYJYM4814-71-33 00:36:00 Test Item Value Reference Range Interpretation Comments Neutrophils # (test code = Neutrophils 1.5 1.5-8.1 #) [facility] CampusFppfpycRJUAOLNNTV7921-84-54 00:36:00 Test Item Value Reference Range Interpretation Comments Lymphocytes # (test code = Lymphocytes 0.6 1.0-5.5 #) [facility] CampusSipikxtJZZZOHJZAW5299-44-16 00:36:00 Test Item Value Reference Range Interpretation Comments Monocytes # (test code 0.3 See_Comment [Aut omated message] The = Monocytes #) system which generated this result tra nsmitted reference range : <=0.8. The reference r samantha was not used to int erpret this result as normal/abnormal . [facility] CampusEyxnlruRRGEETEXJN0419-35-29 00:36:00 Test Item Value Reference Range Interpretation Comments Eosinophils # (test code 0.1 See_Comment [A utomated message] The = Eosinophils #) system whic h generated this result tra nsmitted reference range : <=0.5. The reference r samantha was not used to int erpret this result as normal/abnormal . [facility] CenterDecorative Hardware Inc LSEUPUO5264-13-34 00:36:00 Test Item Value Reference Range Interpretation Comments ABO/Rh (test code = ABO/Rh) AB POS [facility] CenterDataFox [id number] 00:36:00 Test Item Value Reference Range Interpretation Comments Antibody Scrn (test Negative (12/03/21 7:36 code = Antibody Scrn) PM) [place] 506282-07-07 00:36:00 Test Item Value Reference Range Interpretation Comments Glucose Lvl (test code = Glucose Lvl) 143 70-99 [place] 506282-07-07 00:36:00 Test Item Value Reference Range Interpretation Comments BUN (test code = BUN) 39 7-22 [place] 506282-07-07 00:36:00 Test Item Value Reference Range Interpretation Comments Creatinine Lvl (test code = Creatinine 5.46 0.50-1.40 Lvl) [place] 506282-07-07 00:36:00 Test Item Value Reference Range Interpretation Comments Sodium Lvl (test code = Sodium Lvl) 136 135-145 [place] 506282-07-07 00:36:00 Test Item Value Reference Range Interpretation Comments Potassium Lvl (test code = Potassium 4.2 3.5-5.1 Lvl) [place] 506282-07-07 00:36:00 Test Item Value Reference Range Interpretation Comments Chloride Lvl (test code = Chloride Lvl) 100 95-109 [place] 506282-07-07 00:36:00 Test Item Value Reference Range Interpretation Comments CO2 (test code = CO2) 27 24-32 [place] 506282-07-07 00:36:00 Test Item Value Reference Range Interpretation Comments Calcium Lvl (test code = Calcium Lvl) 8.9 8.5-10.5 [place] 506282-07-07 00:36:00 Test Item Value Reference Range Interpretation Comments AGAP (test code = AGAP) 13.2 10.0-20.0 [place] 506282-07-07 00:36:00 Test Item Value Reference Range Interpretation Comments eGFR (test code = eGFR) 10 [place] 155092-07-07 00:36:00 Test Item Value Reference Range Interpretation Comments WBC (test code = WBC) 2.5 3.7-10.4 [place] 155092-07-07 00:36:00 Test Item Value Reference Range Interpretation Comments RBC (test code = RBC) 1.97 4.70-6.10 [place] 155092-07-07 00:36:00 Test Item Value Reference Range Interpretation Comments Hgb (test code = Hgb) 7.1 14.0-18.0 [facility] CampusHfjnypiVAXNXZBFZI1179-36-10 00:36:00 Test Item Value Reference Range Interpretation Comments Hct (test code = Hct) 20.6 42.0-54.0 [facility] CampusGeizkciMIVKJZKILQ4997-46-51 00:36:00 Test Item Value Reference Range Interpretation Comments MCV (test code = MCV) 105.0 80.0-94.0 [facility] CampusBfrdxioFLHTNAGRAW0474-94-49 00:36:00 Test Item Value Reference Range Interpretation Comments MCH (test code = MCH) 36.2 pg 27.0-31.0 [facility] CampusDetmrqxSEZFSLMUAQ7732-69-24 00:36:00 Test Item Value Reference Range Interpretation Comments MCHC (test code = MCHC) 34.5 32.0-36.0 [facility] CampusJcpacluJVNTSLMXYW6083-38-69 00:36:00 Test Item Value Reference Range Interpretation Comments RDW (test code = RDW) 21.1 11.5-14.5 [facility] CampusFmdlbfmYBXFTHRNTH5400-17-08 00:36:00 Test Item Value Reference Range Interpretation Comments Platelet (test code = Platelet) 136 133-450 [facility] CampusZuxaogiFJXXXSBSHK0119-34-44 00:36:00 Test Item Value Reference Range Interpretation Comments MPV (test code = MPV) 8.7 7.4-10.4 [facility] CampusGomuxrgSDVCVJIKQL5743-03-43 00:36:00 Test Item Value Reference Range Interpretation Comments Segs (test code = Segs) 59.5 45.0-75.0 [facility] CampusPgextvkPMICHHQGIK1000-53-05 00:36:00 Test Item Value Reference Range Interpretation Comments Lymphocytes (test code = Lymphocytes) 25.2 20.0-40.0 [place] 155092-07-07 00:36:00 Test Item Value Reference Range Interpretation Comments Monocytes (test code = Monocytes) 12.5 2.0-12.0 [place] 155092-07-07 00:36:00 Test Item Value Reference Range Interpretation Comments Eosinophils (test code = 2.1 See_Comment [A utomated message] The Eosinophils) system which ge nerated this result tra nsmitted reference range : <=4.0. The reference r samantha was not used to int erpret this result as normal/abnormal . [place] 155092-07-07 00:36:00 Test Item Value Reference Range Interpretation Comments Basophils (test code = 0.7 See_Comment [Aut omated message] The Basophils) system which ge nerated this result tra nsmitted reference range : <=1.0. The reference r samantha was not used to int erpret this result as normal/abnormal . [facility] CampusOpthugpWLATZXLTNR6167-02-80 00:36:00 Test Item Value Reference Range Interpretation Comments Neutrophils # (test code = Neutrophils 1.5 1.5-8.1 #) [facility] CampusBhhopduXYZDZVLCSA6852-13-27 00:36:00 Test Item Value Reference Range Interpretation Comments Lymphocytes # (test code = Lymphocytes 0.6 1.0-5.5 #) [facility] CampusNxtmsrgHAMZZAAMKN4941-79-62 00:36:00 Test Item Value Reference Range Interpretation Comments Monocytes # (test code 0.3 See_Comment [Aut omated message] The = Monocytes #) system which generated this result tra nsmitted reference range : <=0.8. The reference r samantha was not used to int erpret this result as normal/abnormal . [facility] CampusTnzjqxjNPIZQPRYPJ6904-51-58 00:36:00 Test Item Value Reference Range Interpretation Comments Eosinophils # (test code 0.1 See_Comment [A utomated message] The = Eosinophils #) system whic h generated this result tra nsmitted reference range : <=0.5. The reference r samantha was not used to int erpret this result as normal/abnormal . [facility] ZXJJFKM4478-95-26 00:36:00 Test Item Value Reference Range Interpretation Comments ABO/Rh (test code = ABO/Rh) AB POS [facility] [id number] 00:36:00 Test Item Value Reference Range Interpretation Comments Antibody Scrn (test Negative (12/03/21 7:36 code = Antibody Scrn) PM) [facility] OMEQG4287-26-79 00:36:00 Test Item Value Reference Range Interpretation Comments Glucose Lvl (test code = Glucose Lvl) 143 70-99 [facility] [id number] 00:36:00 Test Item Value Reference Range Interpretation Comments BUN (test code = BUN) 39 7-22 [facility]Dispatch [id number] 00:36:00 Test Item Value Reference Range Interpretation Comments Creatinine Lvl (test code = Creatinine 5.46 0.50-1.40 Lvl) [place] 506282-07-07 00:36:00 Test Item Value Reference Range Interpretation Comments Sodium Lvl (test code = Sodium Lvl) 136 135-145 [place] 506282-07-07 00:36:00 Test Item Value Reference Range Interpretation Comments Potassium Lvl (test code = Potassium 4.2 3.5-5.1 Lvl) [place] 506282-07-07 00:36:00 Test Item Value Reference Range Interpretation Comments Chloride Lvl (test code = Chloride Lvl) 100 95-109 [place] 506282-07-07 00:36:00 Test Item Value Reference Range Interpretation Comments CO2 (test code = CO2) 27 24-32 [place] 506282-07-07 00:36:00 Test Item Value Reference Range Interpretation Comments Calcium Lvl (test code = Calcium Lvl) 8.9 8.5-10.5 [place] 506282-07-07 00:36:00 Test Item Value Reference Range Interpretation Comments AGAP (test code = AGAP) 13.2 10.0-20.0 [place] 506282-07-07 00:36:00 Test Item Value Reference Range Interpretation Comments eGFR (test code = eGFR) 10 [facility] CampusFunaiapUQYPUSCRVG9196-14-53 00:36:00 Test Item Value Reference Range Interpretation Comments WBC (test code = WBC) 2.5 3.7-10.4 [place] 155092-07-07 00:36:00 Test Item Value Reference Range Interpretation Comments RBC (test code = RBC) 1.97 4.70-6.10 [place] 155092-07-07 00:36:00 Test Item Value Reference Range Interpretation Comments Hgb (test code = Hgb) 7.1 14.0-18.0 [place] 155092-07-07 00:36:00 Test Item Value Reference Range Interpretation Comments Hct (test code = Hct) 20.6 42.0-54.0 [place] 155092-07-07 00:36:00 Test Item Value Reference Range Interpretation Comments MCV (test code = MCV) 105.0 80.0-94.0 [facility] CampusYutumfbBOLQRVVWCI7460-84-85 00:36:00 Test Item Value Reference Range Interpretation Comments MCH (test code = MCH) 36.2 pg 27.0-31.0 [facility]KzcfymaOVQHDWCKMZ1217-14-15 00:36:00 Test Item Value Reference Range Interpretation Comments MCHC (test code = MCHC) 34.5 32.0-36.0 [facility] CampusQelaqkuADAWVFFXMT8380-05-66 00:36:00 Test Item Value Reference Range Interpretation Comments RDW (test code = RDW) 21.1 11.5-14.5 [facility] CampusImpxwwqIRZQFGQVKJ3320-48-76 00:36:00 Test Item Value Reference Range Interpretation Comments Platelet (test code = Platelet) 136 133-450 [facility] CampusEreeimcXNMYZEQRTO3661-33-40 00:36:00 Test Item Value Reference Range Interpretation Comments MPV (test code = MPV) 8.7 7.4-10.4 [facility] CampusFmehxwqIUAEHOORDK3181-93-56 00:36:00 Test Item Value Reference Range Interpretation Comments Segs (test code = Segs) 59.5 45.0-75.0 [facility] CampusEgapwgxOKGHRNKKVI6699-78-08 00:36:00 Test Item Value Reference Range Interpretation Comments Lymphocytes (test code = Lymphocytes) 25.2 20.0-40.0 [facility] CampusKrerqdtOSWPMSEOHA2109-54-44 00:36:00 Test Item Value Reference Range Interpretation Comments Monocytes (test code = Monocytes) 12.5 2.0-12.0 [facility] CampusJoqfqzlGQHRBNUGLM0864-89-66 00:36:00 Test Item Value Reference Range Interpretation Comments Eosinophils (test code = 2.1 See_Comment [A utomated message] The Eosinophils) system which ge nerated this result tra nsmitted reference range : <=4.0. The reference r samantha was not used to int erpret this result as normal/abnormal . [facility] CampusYldbtbaTTUDPGCZVI4539-89-24 00:36:00 Test Item Value Reference Range Interpretation Comments Basophils (test code = 0.7 See_Comment [Aut omated message] The Basophils) system which ge nerated this result tra nsmitted reference range : <=1.0. The reference r samantha was not used to int erpret this result as normal/abnormal . [facility] CampusDxqbjmrICBFPOBMJH5448-58-70 00:36:00 Test Item Value Reference Range Interpretation Comments Neutrophils # (test code = Neutrophils 1.5 1.5-8.1 #) [facility] CampusEklfujuNAVBRMDDXA1960-85-72 00:36:00 Test Item Value Reference Range Interpretation Comments Lymphocytes # (test code = Lymphocytes 0.6 1.0-5.5 #) [facility] CampusKlhukriQKRMMHZFYW3333-24-20 00:36:00 Test Item Value Reference Range Interpretation Comments Monocytes # (test code 0.3 See_Comment [Aut omated message] The = Monocytes #) system which generated this result tra nsmitted reference range : <=0.8. The reference r samantha was not used to int erpret this result as normal/abnormal . [facility] CampusTvbowljTGJQUDRUGN1257-44-75 00:36:00 Test Item Value Reference Range Interpretation Comments Eosinophils # (test code 0.1 See_Comment [A utomated message] The = Eosinophils #) system whic h generated this result tra nsmitted reference range : <=0.5. The reference r samantha was not used to int erpret this result as normal/abnormal . [facility] [id number] 00:36:00 Test Item Value Reference Range Interpretation Comments ABO/Rh (test code = ABO/Rh) AB POS [facility] [id number] 00:36:00 Test Item Value Reference Range Interpretation Comments Antibody Scrn (test Negative (12/03/21 7:36 code = Antibody Scrn) PM) [facility] [id number] 00:36:00 Test Item Value Reference Range Interpretation Comments Glucose Lvl (test code = Glucose Lvl) 143 70-99 [facility] CenterDispatch [id number] 00:36:00 Test Item Value Reference Range Interpretation Comments BUN (test code = BUN) 39 7-22 [facility] [id number] 00:36:00 Test Item Value Reference Range Interpretation Comments Creatinine Lvl (test code = Creatinine 5.46 0.50-1.40 Lvl) [facility] [id number] 00:36:00 Test Item Value Reference Range Interpretation Comments Sodium Lvl (test code = Sodium Lvl) 136 135-145 [facility] Center[facility] [id number] 00:36:00 Test Item Value Reference Range Interpretation Comments Potassium Lvl (test code = Potassium 4.2 3.5-5.1 Lvl) [facility]2022-07-07 00:36:00 Test Item Value Reference Range Interpretation Comments Chloride Lvl (test code = Chloride Lvl) 100 95-109 [place] 506282-07-07 00:36:00 Test Item Value Reference Range Interpretation Comments CO2 (test code = CO2) 27 24-32 [place] 506282-07-07 00:36:00 Test Item Value Reference Range Interpretation Comments Calcium Lvl (test code = Calcium Lvl) 8.9 8.5-10.5 [place] 506282-07-07 00:36:00 Test Item Value Reference Range Interpretation Comments AGAP (test code = AGAP) 13.2 10.0-20.0 [place] 506282-07-07 00:36:00 Test Item Value Reference Range Interpretation Comments eGFR (test code = eGFR) 10 [place] 155092-07-07 00:36:00 Test Item Value Reference Range Interpretation Comments WBC (test code = WBC) 2.5 3.7-10.4 [place] 155092-07-07 00:36:00 Test Item Value Reference Range Interpretation Comments RBC (test code = RBC) 1.97 4.70-6.10 [place] 155092-07-07 00:36:00 Test Item Value Reference Range Interpretation Comments Hgb (test code = Hgb) 7.1 14.0-18.0 [place] 155092-07-07 00:36:00 Test Item Value Reference Range Interpretation Comments Hct (test code = Hct) 20.6 42.0-54.0 [place] 155092-07-07 00:36:00 Test Item Value Reference Range Interpretation Comments MCV (test code = MCV) 105.0 80.0-94.0 [place] 155092-07-07 00:36:00 Test Item Value Reference Range Interpretation Comments MCH (test code = MCH) 36.2 pg 27.0-31.0 [place] 155092-07-07 00:36:00 Test Item Value Reference Range Interpretation Comments MCHC (test code = MCHC) 34.5 32.0-36.0 [place] 155092-07-07 00:36:00 Test Item Value Reference Range Interpretation Comments RDW (test code = RDW) 21.1 11.5-14.5 [place] 155092-07-07 00:36:00 Test Item Value Reference Range Interpretation Comments Platelet (test code = Platelet) 136 133-450 [place] 155092-07-07 00:36:00 Test Item Value Reference Range Interpretation Comments MPV (test code = MPV) 8.7 7.4-10.4 [place] 155092-07-07 00:36:00 Test Item Value Reference Range Interpretation Comments Segs (test code = Segs) 59.5 45.0-75.0 [place] 155092-07-07 00:36:00 Test Item Value Reference Range Interpretation Comments Lymphocytes (test code = Lymphocytes) 25.2 20.0-40.0 [place] 155092-07-07 00:36:00 Test Item Value Reference Range Interpretation Comments Monocytes (test code = Monocytes) 12.5 2.0-12.0 [facility] CampusKqjezdwDLGZBWVASO4898-92-93 00:36:00 Test Item Value Reference Range Interpretation Comments Eosinophils (test code = 2.1 See_Comment [A utomated message] The Eosinophils) system which ge nerated this result tra nsmitted reference range : <=4.0. The reference r samantha was not used to int erpret this result as normal/abnormal . [place] 155092-07-07 00:36:00 Test Item Value Reference Range Interpretation Comments Basophils (test code = 0.7 See_Comment [Aut omated message] The Basophils) system which ge nerated this result tra nsmitted reference range : <=1.0. The reference r samantha was not used to int erpret this result as normal/abnormal . [facility] CampusOaegeziQLWSLXXHNY7253-53-43 00:36:00 Test Item Value Reference Range Interpretation Comments Neutrophils # (test code = Neutrophils 1.5 1.5-8.1 #) [facility] CampusQuobuvaIOBHWYXOIH1252-83-47 00:36:00 Test Item Value Reference Range Interpretation Comments Lymphocytes # (test code = Lymphocytes 0.6 1.0-5.5 #) [place] 155092-07-07 00:36:00 Test Item Value Reference Range Interpretation Comments Monocytes # (test code 0.3 See_Comment [Aut omated message] The = Monocytes #) system which generated this result tra nsmitted reference range : <=0.8. The reference r samantha was not used to int erpret this result as normal/abnormal . [facility] CampusJikdbixINMZZPBLOM7290-30-57 00:36:00 Test Item Value Reference Range Interpretation Comments Eosinophils # (test code 0.1 See_Comment [A utomated message] The = Eosinophils #) system whic h generated this result tra nsmitted reference range : <=0.5. The reference r samantha was not used to int erpret this result as normal/abnormal . [facility]2022-06-29 09:09:00 Test Item Value Reference Range Interpretation Comments Ferritin Lvl (test code = Ferritin Lvl) 1543 22-275 [place] 506282-06-29 09:09:00 Test Item Value Reference Range Interpretation Comments Glucose Lvl (test code = Glucose Lvl) 288 70-99 [place] 506282-06-29 09:09:00 Test Item Value Reference Range Interpretation Comments BUN (test code = BUN) 40 7-22 [place] 506282-06-29 09:09:00 Test Item Value Reference Range Interpretation Comments Creatinine Lvl (test code = Creatinine 6.23 0.50-1.40 Lvl) [facility]2022-06-29 09:09:00 Test Item Value Reference Range Interpretation Comments Sodium Lvl (test code = Sodium Lvl) 134 135-145 [facility]2022-06-29 09:09:00 Test Item Value Reference Range Interpretation Comments Potassium Lvl (test code = Potassium 4.5 3.5-5.1 Lvl) [place] 506282-06-29 09:09:00 Test Item Value Reference Range Interpretation Comments Chloride Lvl (test code = Chloride Lvl) 96 95-109 [place] 506282-06-29 09:09:00 Test Item Value Reference Range Interpretation Comments CO2 (test code = CO2) 29 24-32 [place] 506282-06-29 09:09:00 Test Item Value Reference Range Interpretation Comments AGAP (test code = AGAP) 13.5 10.0-20.0 [place] 506282-06-29 09:09:00 Test Item Value Reference Range Interpretation Comments Calcium Lvl (test code = Calcium Lvl) 9.1 8.5-10.5 [facility] [id number] 09:09:00 Test Item Value Reference Range Interpretation Comments B/C Ratio (test code = B/C Ratio) 6 1 6-25 [facility] [id number] 09:09:00 Test Item Value Reference Range Interpretation Comments Total Protein (test code = Total 6.3 6.4-8.4 Protein) [facility] [id number] 09:09:00 Test Item Value Reference Range Interpretation Comments Albumin Lvl (test code = Albumin Lvl) 2.5 3.5-5.0 [facility] [id number] 09:09:00 Test Item Value Reference Range Interpretation Comments Globulin (test code = Globulin) 3.8 2.7-4.2 [facility] [id number] 09:09:00 Test Item Value Reference Range Interpretation Comments A/G Ratio (test code = A/G Ratio) 0.7 1 0.7-1.6 [facility] [id number] 09:09:00 Test Item Value Reference Range Interpretation Comments ALT (test code = ALT) 38 See_Comment [Auto mated message] The system which ge nerated this result transmit swathi reference range : <=65. The reference range was not used to interpr et this result as deny l/abnormal. [facility] [employer] [id number] 09:09:00 Test Item Value Reference Range Interpretation Comments AST (test code = AST) 31 See_Comment [Auto mated message] The system which ge nerated this result transmit swathi reference range : <=37. The reference range was not used to interpr et this result as deny l/abnormal. [facility] [employer] [id number] 09:09:00 Test Item Value Reference Range Interpretation Comments Alk Phos (test code = Alk Phos) 357 39-136 [facility] [id number] 09:09:00 Test Item Value Reference Range Interpretation Comments Bili Total (test code = Bili Total) 1.0 0.2-1.3 [facility] [employer] [id number] 09:09:00 Test Item Value Reference Range Interpretation Comments eGFR (test code = eGFR) 8 [place] 506282-06-29 09:09:00 Test Item Value Reference Range Interpretation Comments Magnesium Lvl (test code = Magnesium 2.0 1.8-2.4 Lvl) [place] 506282-06-29 09:09:00 Test Item Value Reference Range Interpretation Comments LDH (test code = LDH) 251 98-192 [facility]2022-06-29 09:09:00 Test Item Value Reference Range Interpretation Comments Procalcitonin Lvl (test 0.51 See_Comment [Au tomated message] code = Procalcitonin Lvl) e system which generated this result transmitted ref erence range: <=0.10. The reference range was not used to interpr et this result as normal/abnormal . [place] 155092-06-29 09:09:00 Test Item Value Reference Range Interpretation Comments D-Dimer (test code = D-Dimer) 5.06 [place] 155092-06-29 09:09:00 Test Item Value Reference Range Interpretation Comments WBC (test code = WBC) 4.8 3.7-10.4 [place] [address]-06-29 09:09:00 Test Item Value Reference Range Interpretation Comments RBC (test code = RBC) 2.14 4.70-6.10 [place] 155092-06-29 09:09:00 Test Item Value Reference Range Interpretation Comments Hgb (test code = Hgb) 7.7 14.0-18.0 [place] [address]-06-29 09:09:00 Test Item Value Reference Range Interpretation Comments Hct (test code = Hct) 22.8 42.0-54.0 [place] [address]-06-29 09:09:00 Test Item Value Reference Range Interpretation Comments MCV (test code = MCV) 106.5 80.0-94.0 [place] [address]-06-29 09:09:00 Test Item Value Reference Range Interpretation Comments MCH (test code = MCH) 36.1 pg 27.0-31.0 [place] [address]-06-29 09:09:00 Test Item Value Reference Range Interpretation Comments MCHC (test code = MCHC) 33.9 32.0-36.0 [facility] CampusWssrekvVENZMTZJBN1110-99-15 09:09:00 Test Item Value Reference Range Interpretation Comments RDW (test code = RDW) 21.8 11.5-14.5 [facility] CampusWznfcesMKXLBTWXXX5154-09-31 09:09:00 Test Item Value Reference Range Interpretation Comments Platelet (test code = Platelet) 176 133-450 [facility] CampusGqwewkhYSBKCWNFMS5730-10-50 09:09:00 Test Item Value Reference Range Interpretation Comments MPV (test code = MPV) 8.2 7.4-10.4 [place] 155092-06-29 09:09:00 Test Item Value Reference Range Interpretation Comments Segs (test code = Segs) 83.6 45.0-75.0 [place] 155092-06-29 09:09:00 Test Item Value Reference Range Interpretation Comments Lymphocytes (test code = Lymphocytes) 10.7 20.0-40.0 [facility] CampusEuezsutZEMSADJUOX6987-10-69 09:09:00 Test Item Value Reference Range Interpretation Comments Monocytes (test code = Monocytes) 4.9 2.0-12.0 [facility] CampusIbryyayCZFCFBOCSB5192-13-83 09:09:00 Test Item Value Reference Range Interpretation Comments Eosinophils (test code = 0.4 See_Comment [A utomated message] The Eosinophils) system which ge nerated this result tra nsmitted reference range : <=4.0. The reference r samantha was not used to int erpret this result as normal/abnormal . [facility] CampusEupqpyqNOGFVZRAKM2302-58-11 09:09:00 Test Item Value Reference Range Interpretation Comments Basophils (test code = 0.4 See_Comment [Aut omated message] The Basophils) system which ge nerated this result tra nsmitted reference range : <=1.0. The reference r samantha was not used to int erpret this result as normal/abnormal . [facility] CampusItnryifCYIVDHNBEC6803-07-49 09:09:00 Test Item Value Reference Range Interpretation Comments Neutrophils # (test code = Neutrophils 4.0 1.5-8.1 #) [facility] CampusIfkkwflLPNQYKVGHC7815-23-09 09:09:00 Test Item Value Reference Range Interpretation Comments Lymphocytes # (test code = Lymphocytes 0.5 1.0-5.5 #) [place] 155092-06-29 09:09:00 Test Item Value Reference Range Interpretation Comments Monocytes # (test code 0.2 See_Comment [Aut omated message] The = Monocytes #) system which generated this result tra nsmitted reference range : <=0.8. The reference r samantha was not used to int erpret this result as normal/abnormal . [place] 155092-06-29 09:09:00 Test Item Value Reference Range Interpretation Comments Macrocyte (test code = 1+ *ABN*(11/26/21 Macrocyte) 4:09 AM) [place] 498432-06-29 09:09:00 Test Item Value Reference Range Interpretation Comments Interleukin 6 (test code = Interleukin 14.71 6) [place] 498432-06-29 09:09:00 Test Item Value Reference Range Interpretation Comments C-REACTIVE PROTEIN (test code = 95.9 C-REACTIVE PROTEIN) [facility]2022-06-29 09:09:00 Test Item Value Reference Range Interpretation Comments Ferritin Lvl (test code = Ferritin Lvl) 1543 22-275 [place] 506282-06-29 09:09:00 Test Item Value Reference Range Interpretation Comments Glucose Lvl (test code = Glucose Lvl) 288 70-99 [place] 506282-06-29 09:09:00 Test Item Value Reference Range Interpretation Comments BUN (test code = BUN) 40 7-22 [place] 506282-06-29 09:09:00 Test Item Value Reference Range Interpretation Comments Creatinine Lvl (test code = Creatinine 6.23 0.50-1.40 Lvl) [place] 506282-06-29 09:09:00 Test Item Value Reference Range Interpretation Comments Sodium Lvl (test code = Sodium Lvl) 134 135-145 [place] 506282-06-29 09:09:00 Test Item Value Reference Range Interpretation Comments Potassium Lvl (test code = Potassium 4.5 3.5-5.1 Lvl) [place] 506282-06-29 09:09:00 Test Item Value Reference Range Interpretation Comments Chloride Lvl (test code = Chloride Lvl) 96 95-109 [place] 506282-06-29 09:09:00 Test Item Value Reference Range Interpretation Comments CO2 (test code = CO2) 29 24-32 [place] 506282-06-29 09:09:00 Test Item Value Reference Range Interpretation Comments AGAP (test code = AGAP) 13.5 10.0-20.0 [place] 506282-06-29 09:09:00 Test Item Value Reference Range Interpretation Comments Calcium Lvl (test code = Calcium Lvl) 9.1 8.5-10.5 [place] 506282-06-29 09:09:00 Test Item Value Reference Range Interpretation Comments B/C Ratio (test code = B/C Ratio) 6 1 6-25 [place] 506282-06-29 09:09:00 Test Item Value Reference Range Interpretation Comments Total Protein (test code = Total 6.3 6.4-8.4 Protein) [place] 506282-06-29 09:09:00 Test Item Value Reference Range Interpretation Comments Albumin Lvl (test code = Albumin Lvl) 2.5 3.5-5.0 [place] 506282-06-29 09:09:00 Test Item Value Reference Range Interpretation Comments Globulin (test code = Globulin) 3.8 2.7-4.2 [place] 506282-06-29 09:09:00 Test Item Value Reference Range Interpretation Comments A/G Ratio (test code = A/G Ratio) 0.7 1 0.7-1.6 [place] 506282-06-29 09:09:00 Test Item Value Reference Range Interpretation Comments ALT (test code = ALT) 38 See_Comment [Auto mated message] The system which ge nerated this result transmit swathi reference range : <=65. The reference range was not used to interpr et this result as deny l/abnormal. [place] 506282-06-29 09:09:00 Test Item Value Reference Range Interpretation Comments AST (test code = AST) 31 See_Comment [Auto mated message] The system which ge nerated this result transmit swathi reference range : <=37. The reference range was not used to interpr et this result as deny l/abnormal. [place] 506282-06-29 09:09:00 Test Item Value Reference Range Interpretation Comments Alk Phos (test code = Alk Phos) 357 39-136 [address]06-29 09:09:00 Test Item Value Reference Range Interpretation Comments Bili Total (test code = Bili Total) 1.0 0.2-1.3 [place] 506282-06-29 09:09:00 Test Item Value Reference Range Interpretation Comments eGFR (test code = eGFR) 8 [place] 506282-06-29 09:09:00 Test Item Value Reference Range Interpretation Comments Magnesium Lvl (test code = Magnesium 2.0 1.8-2.4 Lvl) [place] 506282-06-29 09:09:00 Test Item Value Reference Range Interpretation Comments LDH (test code = LDH) 251 98-192 [place] 506282-06-29 09:09:00 Test Item Value Reference Range Interpretation Comments Procalcitonin Lvl (test 0.51 See_Comment [Au tomated message] code = Procalcitonin Lvl) e system which generated this result transmitted ref erence range: <=0.10. The reference range was not used to interpr et this result as normal/abnormal . [place] 155092-06-29 09:09:00 Test Item Value Reference Range Interpretation Comments D-Dimer (test code = D-Dimer) 5.06 [place] [address]-06-29 09:09:00 Test Item Value Reference Range Interpretation Comments WBC (test code = WBC) 4.8 3.7-10.4 [place] [address]-06-29 09:09:00 Test Item Value Reference Range Interpretation Comments RBC (test code = RBC) 2.14 4.70-6.10 [place] [address]-06-29 09:09:00 Test Item Value Reference Range Interpretation Comments Hgb (test code = Hgb) 7.7 14.0-18.0 [place] [address]-06-29 09:09:00 Test Item Value Reference Range Interpretation Comments Hct (test code = Hct) 22.8 42.0-54.0 [place] [address]-06-29 09:09:00 Test Item Value Reference Range Interpretation Comments MCV (test code = MCV) 106.5 80.0-94.0 [place] [address]-06-29 09:09:00 Test Item Value Reference Range Interpretation Comments MCH (test code = MCH) 36.1 pg 27.0-31.0 [facility] CampusXnpbcetESQZTGDQEF8804-71-36 09:09:00 Test Item Value Reference Range Interpretation Comments MCHC (test code = MCHC) 33.9 32.0-36.0 [facility] CampusZbpmvukLWPANMWZSN6961-22-60 09:09:00 Test Item Value Reference Range Interpretation Comments RDW (test code = RDW) 21.8 11.5-14.5 [facility] CampusZjshbbpJHUAEVQQFD5105-18-10 09:09:00 Test Item Value Reference Range Interpretation Comments Platelet (test code = Platelet) 176 133-450 [facility] CampusAvlpdawKQJLDZPZYV2056-92-93 09:09:00 Test Item Value Reference Range Interpretation Comments MPV (test code = MPV) 8.2 7.4-10.4 [place] 155092-06-29 09:09:00 Test Item Value Reference Range Interpretation Comments Segs (test code = Segs) 83.6 45.0-75.0 [place] 155092-06-29 09:09:00 Test Item Value Reference Range Interpretation Comments Lymphocytes (test code = Lymphocytes) 10.7 20.0-40.0 [place] 155092-06-29 09:09:00 Test Item Value Reference Range Interpretation Comments Monocytes (test code = Monocytes) 4.9 2.0-12.0 [facility] CampusWgdcbraLZVOJDANOB9401-68-06 09:09:00 Test Item Value Reference Range Interpretation Comments Eosinophils (test code = 0.4 See_Comment [A utomated message] The Eosinophils) system which ge nerated this result tra nsmitted reference range : <=4.0. The reference r samantha was not used to int erpret this result as normal/abnormal . [facility] CampusDijldfuHQHNNQFTGQ9217-14-43 09:09:00 Test Item Value Reference Range Interpretation Comments Basophils (test code = 0.4 See_Comment [Aut omated message] The Basophils) system which ge nerated this result tra nsmitted reference range : <=1.0. The reference r samantha was not used to int erpret this result as normal/abnormal . [place] 155092-06-29 09:09:00 Test Item Value Reference Range Interpretation Comments Neutrophils # (test code = Neutrophils 4.0 1.5-8.1 #) [place] 155092-06-29 09:09:00 Test Item Value Reference Range Interpretation Comments Lymphocytes # (test code = Lymphocytes 0.5 1.0-5.5 #) [facility] CampusCdbdpbdCHASCTFVUG8100-80-81 09:09:00 Test Item Value Reference Range Interpretation Comments Monocytes # (test code 0.2 See_Comment [Aut omated message] The = Monocytes #) system which generated this result tra nsmitted reference range : <=0.8. The reference r samantha was not used to int erpret this result as normal/abnormal . [place] 155092-06-29 09:09:00 Test Item Value Reference Range Interpretation Comments Macrocyte (test code = 1+ *ABN*(11/26/21 Macrocyte) 4:09 AM) [place] 498432-06-29 09:09:00 Test Item Value Reference Range Interpretation Comments Interleukin 6 (test code = Interleukin 14.71 6) [place] 498432-06-29 09:09:00 Test Item Value Reference Range Interpretation Comments C-REACTIVE PROTEIN (test code = 95.9 C-REACTIVE PROTEIN) [facility]2022-06-29 09:09:00 Test Item Value Reference Range Interpretation Comments Ferritin Lvl (test code = Ferritin Lvl) 1543 22-275 [place] 506282-06-29 09:09:00 Test Item Value Reference Range Interpretation Comments Glucose Lvl (test code = Glucose Lvl) 288 70-99 [facility]2022-06-29 09:09:00 Test Item Value Reference Range Interpretation Comments BUN (test code = BUN) 40 7-22 [facility]2022-06-29 09:09:00 Test Item Value Reference Range Interpretation Comments Creatinine Lvl (test code = Creatinine 6.23 0.50-1.40 Lvl) [facility]2022-06-29 09:09:00 Test Item Value Reference Range Interpretation Comments Sodium Lvl (test code = Sodium Lvl) 134 135-145 [place] 506282-06-29 09:09:00 Test Item Value Reference Range Interpretation Comments Potassium Lvl (test code = Potassium 4.5 3.5-5.1 Lvl) [place] 506282-06-29 09:09:00 Test Item Value Reference Range Interpretation Comments Chloride Lvl (test code = Chloride Lvl) 96 95-109 [place] 506282-06-29 09:09:00 Test Item Value Reference Range Interpretation Comments CO2 (test code = CO2) 29 24-32 [place] 506282-06-29 09:09:00 Test Item Value Reference Range Interpretation Comments AGAP (test code = AGAP) 13.5 10.0-20.0 [place] 506282-06-29 09:09:00 Test Item Value Reference Range Interpretation Comments Calcium Lvl (test code = Calcium Lvl) 9.1 8.5-10.5 [place] 506282-06-29 09:09:00 Test Item Value Reference Range Interpretation Comments B/C Ratio (test code = B/C Ratio) 6 1 6-25 [place] 506282-06-29 09:09:00 Test Item Value Reference Range Interpretation Comments Total Protein (test code = Total 6.3 6.4-8.4 Protein) [place] 506282-06-29 09:09:00 Test Item Value Reference Range Interpretation Comments Albumin Lvl (test code = Albumin Lvl) 2.5 3.5-5.0 [place] 506282-06-29 09:09:00 Test Item Value Reference Range Interpretation Comments Globulin (test code = Globulin) 3.8 2.7-4.2 [place] 506282-06-29 09:09:00 Test Item Value Reference Range Interpretation Comments A/G Ratio (test code = A/G Ratio) 0.7 1 0.7-1.6 [place] 506282-06-29 09:09:00 Test Item Value Reference Range Interpretation Comments ALT (test code = ALT) 38 See_Comment [Auto mated message] The system which ge nerated this result transmit swathi reference range : <=65. The reference range was not used to interpr et this result as deny l/abnormal. [place] 506282-06-29 09:09:00 Test Item Value Reference Range Interpretation Comments AST (test code = AST) 31 See_Comment [Auto mated message] The system which ge nerated this result transmit swathi reference range : <=37. The reference range was not used to interpr et this result as deny l/abnormal. [place] 506282-06-29 09:09:00 Test Item Value Reference Range Interpretation Comments Alk Phos (test code = Alk Phos) 357 39-136 [place] 506282-06-29 09:09:00 Test Item Value Reference Range Interpretation Comments Bili Total (test code = Bili Total) 1.0 0.2-1.3 [place] 506282-06-29 09:09:00 Test Item Value Reference Range Interpretation Comments eGFR (test code = eGFR) 8 [place] 506282-06-29 09:09:00 Test Item Value Reference Range Interpretation Comments Magnesium Lvl (test code = Magnesium 2.0 1.8-2.4 Lvl) [place] 506282-06-29 09:09:00 Test Item Value Reference Range Interpretation Comments LDH (test code = LDH) 251 98-192 [place] 506282-06-29 09:09:00 Test Item Value Reference Range Interpretation Comments Procalcitonin Lvl (test 0.51 See_Comment [Au tomated message] code = Procalcitonin Lvl) e system which generated this result transmitted ref erence range: <=0.10. The reference range was not used to interpr et this result as normal/abnormal . [place] 155092-06-29 09:09:00 Test Item Value Reference Range Interpretation Comments D-Dimer (test code = D-Dimer) 5.06 [place] 155092-06-29 09:09:00 Test Item Value Reference Range Interpretation Comments WBC (test code = WBC) 4.8 3.7-10.4 [place] 155092-06-29 09:09:00 Test Item Value Reference Range Interpretation Comments RBC (test code = RBC) 2.14 4.70-6.10 [place] [address]-06-29 09:09:00 Test Item Value Reference Range Interpretation Comments Hgb (test code = Hgb) 7.7 14.0-18.0 [place] [address]-06-29 09:09:00 Test Item Value Reference Range Interpretation Comments Hct (test code = Hct) 22.8 42.0-54.0 [place] [address]-06-29 09:09:00 Test Item Value Reference Range Interpretation Comments MCV (test code = MCV) 106.5 80.0-94.0 [place] 155092-06-29 09:09:00 Test Item Value Reference Range Interpretation Comments MCH (test code = MCH) 36.1 pg 27.0-31.0 [place] 155092-06-29 09:09:00 Test Item Value Reference Range Interpretation Comments MCHC (test code = MCHC) 33.9 32.0-36.0 [place] 155092-06-29 09:09:00 Test Item Value Reference Range Interpretation Comments RDW (test code = RDW) 21.8 11.5-14.5 [place] 155092-06-29 09:09:00 Test Item Value Reference Range Interpretation Comments Platelet (test code = Platelet) 176 133-450 [place] 155092-06-29 09:09:00 Test Item Value Reference Range Interpretation Comments MPV (test code = MPV) 8.2 7.4-10.4 [place] 155092-06-29 09:09:00 Test Item Value Reference Range Interpretation Comments Segs (test code = Segs) 83.6 45.0-75.0 [place] 155092-06-29 09:09:00 Test Item Value Reference Range Interpretation Comments Lymphocytes (test code = Lymphocytes) 10.7 20.0-40.0 [place] 155092-06-29 09:09:00 Test Item Value Reference Range Interpretation Comments Monocytes (test code = Monocytes) 4.9 2.0-12.0 [place] 155092-06-29 09:09:00 Test Item Value Reference Range Interpretation Comments Eosinophils (test code = 0.4 See_Comment [A utomated message] The Eosinophils) system which ge nerated this result tra nsmitted reference range : <=4.0. The reference r samantha was not used to int erpret this result as normal/abnormal . [facility]hxsmk[facility]UK[facility]IAAL[facility] 09:09:00 Test Item Value Reference Range Interpretation Comments Basophils (test code = 0.4 See_Comment [Aut omated message] The Basophils) system which ge nerated this result tra nsmitted reference range : <=1.0. The reference r samantha was not used to int erpret this result as normal/abnormal . [facility] CampusSnfhrzrULRMWEIBFR8267-18-59 09:09:00 Test Item Value Reference Range Interpretation Comments Neutrophils # (test code = Neutrophils 4.0 1.5-8.1 #) [facility] CampusFyrfkiqRJSVCIFLSJ1378-65-72 09:09:00 Test Item Value Reference Range Interpretation Comments Lymphocytes # (test code = Lymphocytes 0.5 1.0-5.5 #) [facility] CampusIgkiavuSTJECVMZAG6528-22-44 09:09:00 Test Item Value Reference Range Interpretation Comments Monocytes # (test code 0.2 See_Comment [Aut omated message] The = Monocytes #) system which generated this result tra nsmitted reference range : <=0.8. The reference r samantha was not used to int erpret this result as normal/abnormal . [facility] CampusRrkigtzVXKBJSJBZK4703-38-21 09:09:00 Test Item Value Reference Range Interpretation Comments Macrocyte (test code = 1+ *ABN*(11/26/21 Macrocyte) 4:09 AM) [place] 498432-06-29 09:09:00 Test Item Value Reference Range Interpretation Comments Interleukin 6 (test code = Interleukin 14.71 6) [place] [address]-06-29 09:09:00 Test Item Value Reference Range Interpretation Comments C-REACTIVE PROTEIN (test code = 95.9 C-REACTIVE PROTEIN) [facility]2022-06-29 09:09:00 Test Item Value Reference Range Interpretation Comments Ferritin Lvl (test code = Ferritin Lvl) 1543 22-275 [facility]2022-06-29 09:09:00 Test Item Value Reference Range Interpretation Comments Glucose Lvl (test code = Glucose Lvl) 288 70-99 [facility]2022-06-29 09:09:00 Test Item Value Reference Range Interpretation Comments BUN (test code = BUN) 40 7-22 [place] 506282-06-29 09:09:00 Test Item Value Reference Range Interpretation Comments Creatinine Lvl (test code = Creatinine 6.23 0.50-1.40 Lvl) [facility]2022-06-29 09:09:00 Test Item Value Reference Range Interpretation Comments Sodium Lvl (test code = Sodium Lvl) 134 135-145 [place] 506282-06-29 09:09:00 Test Item Value Reference Range Interpretation Comments Potassium Lvl (test code = Potassium 4.5 3.5-5.1 Lvl) [place] 506282-06-29 09:09:00 Test Item Value Reference Range Interpretation Comments Chloride Lvl (test code = Chloride Lvl) 96 95-109 [place] 506282-06-29 09:09:00 Test Item Value Reference Range Interpretation Comments CO2 (test code = CO2) 29 24-32 [place] 506282-06-29 09:09:00 Test Item Value Reference Range Interpretation Comments AGAP (test code = AGAP) 13.5 10.0-20.0 [place] 506282-06-29 09:09:00 Test Item Value Reference Range Interpretation Comments Calcium Lvl (test code = Calcium Lvl) 9.1 8.5-10.5 [place] 506282-06-29 09:09:00 Test Item Value Reference Range Interpretation Comments B/C Ratio (test code = B/C Ratio) 6 1 6-25 [place] 506282-06-29 09:09:00 Test Item Value Reference Range Interpretation Comments Total Protein (test code = Total 6.3 6.4-8.4 Protein) [place] 506282-06-29 09:09:00 Test Item Value Reference Range Interpretation Comments Albumin Lvl (test code = Albumin Lvl) 2.5 3.5-5.0 [place] 506282-06-29 09:09:00 Test Item Value Reference Range Interpretation Comments Globulin (test code = Globulin) 3.8 2.7-4.2 [place] 506282-06-29 09:09:00 Test Item Value Reference Range Interpretation Comments A/G Ratio (test code = A/G Ratio) 0.7 1 0.7-1.6 [place] 506282-06-29 09:09:00 Test Item Value Reference Range Interpretation Comments ALT (test code = ALT) 38 See_Comment [Auto mated message] The system which ge nerated this result transmit swathi reference range : <=65. The reference range was not used to interpr et this result as deny l/abnormal. [place] 506282-06-29 09:09:00 Test Item Value Reference Range Interpretation Comments AST (test code = AST) 31 See_Comment [Auto mated message] The system which ge nerated this result transmit swathi reference range : <=37. The reference range was not used to interpr et this result as deny l/abnormal. [facility] [id number] 09:09:00 Test Item Value Reference Range Interpretation Comments Alk Phos (test code = Alk Phos) 357 39-136 [facility] [id number] 09:09:00 Test Item Value Reference Range Interpretation Comments Bili Total (test code = Bili Total) 1.0 0.2-1.3 [facility] [id number] 09:09:00 Test Item Value Reference Range Interpretation Comments eGFR (test code = eGFR) 8 [facility] [id number] 09:09:00 Test Item Value Reference Range Interpretation Comments Magnesium Lvl (test code = Magnesium 2.0 1.8-2.4 Lvl) [facility] [id number] 09:09:00 Test Item Value Reference Range Interpretation Comments LDH (test code = LDH) 251 98-192 [facility] [id number] 09:09:00 Test Item Value Reference Range Interpretation Comments Procalcitonin Lvl (test 0.51 See_Comment [Au tomated message] code = Procalcitonin Lvl) Th e system which generated this result transmitted ref erence range: <=0.10. The reference range was not used to interpr et this result as normal/abnormal . [facility] CenterXowdzftBLVHPZIFWL5179-07-58 09:09:00 Test Item Value Reference Range Interpretation Comments D-Dimer (test code = D-Dimer) 5.06 [place] [address]-06-29 09:09:00 Test Item Value Reference Range Interpretation Comments WBC (test code = WBC) 4.8 3.7-10.4 [place] 155092-06-29 09:09:00 Test Item Value Reference Range Interpretation Comments RBC (test code = RBC) 2.14 4.70-6.10 [place] [address]-06-29 09:09:00 Test Item Value Reference Range Interpretation Comments Hgb (test code = Hgb) 7.7 14.0-18.0 [place] 155092-06-29 09:09:00 Test Item Value Reference Range Interpretation Comments Hct (test code = Hct) 22.8 42.0-54.0 [place] 155092-06-29 09:09:00 Test Item Value Reference Range Interpretation Comments MCV (test code = MCV) 106.5 80.0-94.0 [place] 155092-06-29 09:09:00 Test Item Value Reference Range Interpretation Comments MCH (test code = MCH) 36.1 pg 27.0-31.0 [place] 155092-06-29 09:09:00 Test Item Value Reference Range Interpretation Comments MCHC (test code = MCHC) 33.9 32.0-36.0 [place] 155092-06-29 09:09:00 Test Item Value Reference Range Interpretation Comments RDW (test code = RDW) 21.8 11.5-14.5 [place] 155092-06-29 09:09:00 Test Item Value Reference Range Interpretation Comments Platelet (test code = Platelet) 176 133-450 [facility] CampusAzlmqodMUSWDXQTMB3460-82-62 09:09:00 Test Item Value Reference Range Interpretation Comments MPV (test code = MPV) 8.2 7.4-10.4 [place] 155092-06-29 09:09:00 Test Item Value Reference Range Interpretation Comments Segs (test code = Segs) 83.6 45.0-75.0 [place] 155092-06-29 09:09:00 Test Item Value Reference Range Interpretation Comments Lymphocytes (test code = Lymphocytes) 10.7 20.0-40.0 [place] 155092-06-29 09:09:00 Test Item Value Reference Range Interpretation Comments Monocytes (test code = Monocytes) 4.9 2.0-12.0 [place] [address]-06-29 09:09:00 Test Item Value Reference Range Interpretation Comments Eosinophils (test code = 0.4 See_Comment [A utomated message] The Eosinophils) system which ge nerated this result tra nsmitted reference range : <=4.0. The reference r samantha was not used to int erpret this result as normal/abnormal . [facility] CampusMwaanrzKVZQWGWYIG9888-82-91 09:09:00 Test Item Value Reference Range Interpretation Comments Basophils (test code = 0.4 See_Comment [Aut omated message] The Basophils) system which ge nerated this result tra nsmitted reference range : <=1.0. The reference r samantha was not used to int erpret this result as normal/abnormal . [facility] CampusGvzhoiiJMURBROYKR7064-38-97 09:09:00 Test Item Value Reference Range Interpretation Comments Neutrophils # (test code = Neutrophils 4.0 1.5-8.1 #) [facility] CampusNzmcqmxLPSVJASBCV3826-68-60 09:09:00 Test Item Value Reference Range Interpretation Comments Lymphocytes # (test code = Lymphocytes 0.5 1.0-5.5 #) [facility] CampusHadwgkhYIXPQSYLTX7737-42-04 09:09:00 Test Item Value Reference Range Interpretation Comments Monocytes # (test code 0.2 See_Comment [Aut omated message] The = Monocytes #) system which generated this result tra nsmitted reference range : <=0.8. The reference r samantha was not used to int erpret this result as normal/abnormal . [facility] CampusBlapobsPLUDCIBAJQ9667-49-47 09:09:00 Test Item Value Reference Range Interpretation Comments Macrocyte (test code = 1+ *ABN*(11/26/21 Macrocyte) 4:09 AM) [facility]OvwwckkTCUTVFUXCQ0570-18-44 09:09:00 Test Item Value Reference Range Interpretation Comments Interleukin 6 (test code = Interleukin 14.71 6) [facility] CenterFffoezeEQSRMVHFPW7247-41-11 09:09:00 Test Item Value Reference Range Interpretation Comments C-REACTIVE PROTEIN (test code = 95.9 C-REACTIVE PROTEIN) [facility]2022-06-29 09:09:00 Test Item Value Reference Range Interpretation Comments Ferritin Lvl (test code = Ferritin Lvl) 1543 22-275 [facility]2022-06-29 09:09:00 Test Item Value Reference Range Interpretation Comments Glucose Lvl (test code = Glucose Lvl) 288 70-99 [facility]2022-06-29 09:09:00 Test Item Value Reference Range Interpretation Comments BUN (test code = BUN) 40 7-22 [place] 506282-06-29 09:09:00 Test Item Value Reference Range Interpretation Comments Creatinine Lvl (test code = Creatinine 6.23 0.50-1.40 Lvl) [facility]2022-06-29 09:09:00 Test Item Value Reference Range Interpretation Comments Sodium Lvl (test code = Sodium Lvl) 134 135-145 [place] 506282-06-29 09:09:00 Test Item Value Reference Range Interpretation Comments Potassium Lvl (test code = Potassium 4.5 3.5-5.1 Lvl) [place] 506282-06-29 09:09:00 Test Item Value Reference Range Interpretation Comments Chloride Lvl (test code = Chloride Lvl) 96 95-109 [place] 506282-06-29 09:09:00 Test Item Value Reference Range Interpretation Comments CO2 (test code = CO2) 29 24-32 [place] 506282-06-29 09:09:00 Test Item Value Reference Range Interpretation Comments AGAP (test code = AGAP) 13.5 10.0-20.0 [place] 506282-06-29 09:09:00 Test Item Value Reference Range Interpretation Comments Calcium Lvl (test code = Calcium Lvl) 9.1 8.5-10.5 [place] 506282-06-29 09:09:00 Test Item Value Reference Range Interpretation Comments B/C Ratio (test code = B/C Ratio) 6 1 6-25 [place] 506282-06-29 09:09:00 Test Item Value Reference Range Interpretation Comments Total Protein (test code = Total 6.3 6.4-8.4 Protein) [place] 506282-06-29 09:09:00 Test Item Value Reference Range Interpretation Comments Albumin Lvl (test code = Albumin Lvl) 2.5 3.5-5.0 [place] 506282-06-29 09:09:00 Test Item Value Reference Range Interpretation Comments Globulin (test code = Globulin) 3.8 2.7-4.2 [place] 506282-06-29 09:09:00 Test Item Value Reference Range Interpretation Comments A/G Ratio (test code = A/G Ratio) 0.7 1 0.7-1.6 [place] 506282-06-29 09:09:00 Test Item Value Reference Range Interpretation Comments ALT (test code = ALT) 38 See_Comment [Auto mated message] The system which ge nerated this result transmit swathi reference range : <=65. The reference range was not used to interpr et this result as deny l/abnormal. [facility] [id number] 09:09:00 Test Item Value Reference Range Interpretation Comments AST (test code = AST) 31 See_Comment [Auto mated message] The system which ge nerated this result transmit swathi reference range : <=37. The reference range was not used to interpr et this result as deny l/abnormal. [facility] [id number] 09:09:00 Test Item Value Reference Range Interpretation Comments Alk Phos (test code = Alk Phos) 357 39-136 [facility] [id number] 09:09:00 Test Item Value Reference Range Interpretation Comments Bili Total (test code = Bili Total) 1.0 0.2-1.3 [facility] [id number] 09:09:00 Test Item Value Reference Range Interpretation Comments eGFR (test code = eGFR) 8 [facility] [id number] 09:09:00 Test Item Value Reference Range Interpretation Comments Magnesium Lvl (test code = Magnesium 2.0 1.8-2.4 Lvl) [facility] [id number] 09:09:00 Test Item Value Reference Range Interpretation Comments LDH (test code = LDH) 251 98-192 [facility] [id number] 09:09:00 Test Item Value Reference Range Interpretation Comments Procalcitonin Lvl (test 0.51 See_Comment [Au tomated message] code = Procalcitonin Lvl) Th e system which generated this result transmitted ref erence range: <=0.10. The reference range was not used to interpr et this result as normal/abnormal . [facility] CenterNtlgtjjBPXOREDTVB1652-09-26 09:09:00 Test Item Value Reference Range Interpretation Comments D-Dimer (test code = D-Dimer) 5.06 [place] 155092-06-29 09:09:00 Test Item Value Reference Range Interpretation Comments WBC (test code = WBC) 4.8 3.7-10.4 [facility] CenterZhzeirjOMCWSJCLHQ7772-88-21 09:09:00 Test Item Value Reference Range Interpretation Comments RBC (test code = RBC) 2.14 4.70-6.10 [facility] CampusLygbbvpPXIDWAUBYW4142-68-72 09:09:00 Test Item Value Reference Range Interpretation Comments Hgb (test code = Hgb) 7.7 14.0-18.0 [facility] CampusAivxbloHENQLMBKZS1514-16-56 09:09:00 Test Item Value Reference Range Interpretation Comments Hct (test code = Hct) 22.8 42.0-54.0 [facility] CampusTnlmtxaXOHFVIJQJI7738-01-67 09:09:00 Test Item Value Reference Range Interpretation Comments MCV (test code = MCV) 106.5 80.0-94.0 [facility] CampusVzmdsezDRGURCOCLK4729-67-82 09:09:00 Test Item Value Reference Range Interpretation Comments MCH (test code = MCH) 36.1 pg 27.0-31.0 [facility] CampusQhtlcaaZZLHJRJTVB8521-50-85 09:09:00 Test Item Value Reference Range Interpretation Comments MCHC (test code = MCHC) 33.9 32.0-36.0 [facility] CampusEuzdrqlMQKPUTMXNO7258-07-64 09:09:00 Test Item Value Reference Range Interpretation Comments RDW (test code = RDW) 21.8 11.5-14.5 [facility] CampusFbuhxpgWOTQEQMFCA8988-94-21 09:09:00 Test Item Value Reference Range Interpretation Comments Platelet (test code = Platelet) 176 133-450 [facility] CampusBtkgjyjLRUAFHSJJS7224-75-72 09:09:00 Test Item Value Reference Range Interpretation Comments MPV (test code = MPV) 8.2 7.4-10.4 [facility] CampusIgesqgoIPFSUSXXCW0250-07-15 09:09:00 Test Item Value Reference Range Interpretation Comments Segs (test code = Segs) 83.6 45.0-75.0 [facility] CampusMnuletqFMWXIBTHRM7633-01-51 09:09:00 Test Item Value Reference Range Interpretation Comments Lymphocytes (test code = Lymphocytes) 10.7 20.0-40.0 [place] 155092-06-29 09:09:00 Test Item Value Reference Range Interpretation Comments Monocytes (test code = Monocytes) 4.9 2.0-12.0 [facility] CampusKaeaopxCRUTCVLLSV2540-29-22 09:09:00 Test Item Value Reference Range Interpretation Comments Eosinophils (test code = 0.4 See_Comment [A utomated message] The Eosinophils) system which ge nerated this result tra nsmitted reference range : <=4.0. The reference r samantha was not used to int erpret this result as normal/abnormal . [facility] CampusOujwfebHQUGJKXBEB8543-05-91 09:09:00 Test Item Value Reference Range Interpretation Comments Basophils (test code = 0.4 See_Comment [Aut omated message] The Basophils) system which ge nerated this result tra nsmitted reference range : <=1.0. The reference r samantha was not used to int erpret this result as normal/abnormal . [facility] CampusGogsagfLUGYHSEKYZ9532-89-70 09:09:00 Test Item Value Reference Range Interpretation Comments Neutrophils # (test code = Neutrophils 4.0 1.5-8.1 #) [facility] CampusVndvqyxCKTYTRXBRR4306-90-41 09:09:00 Test Item Value Reference Range Interpretation Comments Lymphocytes # (test code = Lymphocytes 0.5 1.0-5.5 #) [facility] CampusSjgqgmxDAGZHDJTOD2043-38-78 09:09:00 Test Item Value Reference Range Interpretation Comments Monocytes # (test code 0.2 See_Comment [Aut omated message] The = Monocytes #) system which generated this result tra nsmitted reference range : <=0.8. The reference r samantha was not used to int erpret this result as normal/abnormal . [facility] CampusBtmkkddOFSHSVGOTP5867-46-22 09:09:00 Test Item Value Reference Range Interpretation Comments Macrocyte (test code = 1+ *ABN*(11/26/21 Macrocyte) 4:09 AM) [facility] CenterQamflsaDZVRNQZGTT5773-66-51 09:09:00 Test Item Value Reference Range Interpretation Comments Interleukin 6 (test code = Interleukin 14.71 6) [facility] CenterWnnhxgaHRKNEQNPEM5520-86-81 09:09:00 Test Item Value Reference Range Interpretation Comments C-REACTIVE PROTEIN (test code = 95.9 C-REACTIVE PROTEIN) [facility]2022-06-29 09:09:00 Test Item Value Reference Range Interpretation Comments Ferritin Lvl (test code = Ferritin Lvl) 1543 25-434 [facility]2022-06-29 09:09:00 Test Item Value Reference Range Interpretation Comments Glucose Lvl (test code = Glucose Lvl) 288 70-99 [facility] [id number] 09:09:00 Test Item Value Reference Range Interpretation Comments BUN (test code = BUN) 40 7-22 [place] 506282-06-29 09:09:00 Test Item Value Reference Range Interpretation Comments Creatinine Lvl (test code = Creatinine 6.23 0.50-1.40 Lvl) [place] 506282-06-29 09:09:00 Test Item Value Reference Range Interpretation Comments Sodium Lvl (test code = Sodium Lvl) 134 135-145 [place] 506282-06-29 09:09:00 Test Item Value Reference Range Interpretation Comments Potassium Lvl (test code = Potassium 4.5 3.5-5.1 Lvl) [place] 506282-06-29 09:09:00 Test Item Value Reference Range Interpretation Comments Chloride Lvl (test code = Chloride Lvl) 96 95-109 [place] 506282-06-29 09:09:00 Test Item Value Reference Range Interpretation Comments CO2 (test code = CO2) 29 24-32 [place] 506282-06-29 09:09:00 Test Item Value Reference Range Interpretation Comments AGAP (test code = AGAP) 13.5 10.0-20.0 [place] 506282-06-29 09:09:00 Test Item Value Reference Range Interpretation Comments Calcium Lvl (test code = Calcium Lvl) 9.1 8.5-10.5 [place] 506282-06-29 09:09:00 Test Item Value Reference Range Interpretation Comments B/C Ratio (test code = B/C Ratio) 6 1 6-25 [place] 506282-06-29 09:09:00 Test Item Value Reference Range Interpretation Comments Total Protein (test code = Total 6.3 6.4-8.4 Protein) [place] 506282-06-29 09:09:00 Test Item Value Reference Range Interpretation Comments Albumin Lvl (test code = Albumin Lvl) 2.5 3.5-5.0 [place] 506282-06-29 09:09:00 Test Item Value Reference Range Interpretation Comments Globulin (test code = Globulin) 3.8 2.7-4.2 [place] 506282-06-29 09:09:00 Test Item Value Reference Range Interpretation Comments A/G Ratio (test code = A/G Ratio) 0.7 1 0.7-1.6 [facility] [employer] [id number] 09:09:00 Test Item Value Reference Range Interpretation Comments ALT (test code = ALT) 38 See_Comment [Auto mated message] The system which ge nerated this result transmit swathi reference range : <=65. The reference range was not used to interpr et this result as deny l/abnormal. [facility] [employer] [id number] 09:09:00 Test Item Value Reference Range Interpretation Comments AST (test code = AST) 31 See_Comment [Auto mated message] The system which ge nerated this result transmit swathi reference range : <=37. The reference range was not used to interpr et this result as deny l/abnormal. [facility] [employer] [id number] 09:09:00 Test Item Value Reference Range Interpretation Comments Alk Phos (test code = Alk Phos) 357 39-136 [facility] [employer] [id number] 09:09:00 Test Item Value Reference Range Interpretation Comments Bili Total (test code = Bili Total) 1.0 0.2-1.3 [facility] [id number] 09:09:00 Test Item Value Reference Range Interpretation Comments eGFR (test code = eGFR) 8 [facility] [employer] [id number] 09:09:00 Test Item Value Reference Range Interpretation Comments Magnesium Lvl (test code = Magnesium 2.0 1.8-2.4 Lvl) [facility] [id number] 09:09:00 Test Item Value Reference Range Interpretation Comments LDH (test code = LDH) 251 98-192 [facility] [employer] [id number] 09:09:00 Test Item Value Reference Range Interpretation Comments Procalcitonin Lvl (test 0.51 See_Comment [Au tomated message] code = Procalcitonin Lvl) Th e system which generated this result transmitted ref erence range: <=0.10. The reference range was not used to interpr et this result as normal/abnormal . [facility] CenterJctiyoaKEVINIFUQX6979-87-12 09:09:00 Test Item Value Reference Range Interpretation Comments D-Dimer (test code = D-Dimer) 5.06 [facility] CenterMjhllsmARQVYKYAIL3637-79-05 09:09:00 Test Item Value Reference Range Interpretation Comments WBC (test code = WBC) 4.8 3.7-10.4 [facility]IzcvaqxOONYMGVAVL6020-65-89 09:09:00 Test Item Value Reference Range Interpretation Comments RBC (test code = RBC) 2.14 4.70-6.10 [facility] CampusCwxahutTTLGUWUFVQ4568-35-52 09:09:00 Test Item Value Reference Range Interpretation Comments Hgb (test code = Hgb) 7.7 14.0-18.0 [facility] CampusFseiyvrZTMCVKEBBH1362-94-91 09:09:00 Test Item Value Reference Range Interpretation Comments Hct (test code = Hct) 22.8 42.0-54.0 [facility] CampusDcaxwfbLLZTWVYIVA8939-81-40 09:09:00 Test Item Value Reference Range Interpretation Comments MCV (test code = MCV) 106.5 80.0-94.0 [place] 155092-06-29 09:09:00 Test Item Value Reference Range Interpretation Comments MCH (test code = MCH) 36.1 pg 27.0-31.0 [facility] CampusRkiudccFFKADBYCAG3908-64-63 09:09:00 Test Item Value Reference Range Interpretation Comments MCHC (test code = MCHC) 33.9 32.0-36.0 [facility] CampusOqkovdqFZPYTUDVDN8590-23-39 09:09:00 Test Item Value Reference Range Interpretation Comments RDW (test code = RDW) 21.8 11.5-14.5 [facility] CampusNnewgtnKDOBBKAESV7856-48-37 09:09:00 Test Item Value Reference Range Interpretation Comments Platelet (test code = Platelet) 176 133-450 [facility] CampusQvuewzoOKKREDSHJV7417-59-55 09:09:00 Test Item Value Reference Range Interpretation Comments MPV (test code = MPV) 8.2 7.4-10.4 [facility] CampusMowujchATUOTJRATJ8429-46-65 09:09:00 Test Item Value Reference Range Interpretation Comments Segs (test code = Segs) 83.6 45.0-75.0 [facility] CampusBsegtkyEJXHBYOZZR7120-50-39 09:09:00 Test Item Value Reference Range Interpretation Comments Lymphocytes (test code = Lymphocytes) 10.7 20.0-40.0 [place] 155092-06-29 09:09:00 Test Item Value Reference Range Interpretation Comments Monocytes (test code = Monocytes) 4.9 2.0-12.0 [facility]2022-06-29 09:09:00 Test Item Value Reference Range Interpretation Comments Ferritin Lvl (test code = Ferritin Lvl) 1543 22275 [facility]2022-06-29 09:09:00 Test Item Value Reference Range Interpretation Comments Glucose Lvl (test code = Glucose Lvl) 288 70-99 [place] 506282-06-29 09:09:00 Test Item Value Reference Range Interpretation Comments BUN (test code = BUN) 40 7-22 [place] 506282-06-29 09:09:00 Test Item Value Reference Range Interpretation Comments Creatinine Lvl (test code = Creatinine 6.23 0.50-1.40 Lvl) [place] 506282-06-29 09:09:00 Test Item Value Reference Range Interpretation Comments Sodium Lvl (test code = Sodium Lvl) 134 135-145 [place] 506282-06-29 09:09:00 Test Item Value Reference Range Interpretation Comments Potassium Lvl (test code = Potassium 4.5 3.5-5.1 Lvl) [place] 506282-06-29 09:09:00 Test Item Value Reference Range Interpretation Comments Chloride Lvl (test code = Chloride Lvl) 96 95-109 [place] 506282-06-29 09:09:00 Test Item Value Reference Range Interpretation Comments CO2 (test code = CO2) 29 24-32 [facility]XgwyaymIZTQFSSVQO8382-77-61 09:09:00 Test Item Value Reference Range Interpretation Comments Eosinophils (test code = 0.4 See_Comment [A utomated message] The Eosinophils) system which ge nerated this result tra nsmitted reference range : <=4.0. The reference r samantha was not used to int erpret this result as normal/abnormal . [place] 506282-06-29 09:09:00 Test Item Value Reference Range Interpretation Comments AGAP (test code = AGAP) 13.5 10.0-20.0 [place] 506282-06-29 09:09:00 Test Item Value Reference Range Interpretation Comments Calcium Lvl (test code = Calcium Lvl) 9.1 8.5-10.5 [place] 506282-06-29 09:09:00 Test Item Value Reference Range Interpretation Comments B/C Ratio (test code = B/C Ratio) 6 1 6-25 [place] 506282-06-29 09:09:00 Test Item Value Reference Range Interpretation Comments Total Protein (test code = Total 6.3 6.4-8.4 Protein) [facility]2022-06-29 09:09:00 Test Item Value Reference Range Interpretation Comments Albumin Lvl (test code = Albumin Lvl) 2.5 3.5-5.0 [facility]2022-06-29 09:09:00 Test Item Value Reference Range Interpretation Comments Globulin (test code = Globulin) 3.8 2.7-4.2 [place] 506282-06-29 09:09:00 Test Item Value Reference Range Interpretation Comments A/G Ratio (test code = A/G Ratio) 0.7 1 0.7-1.6 [facility]2022-06-29 09:09:00 Test Item Value Reference Range Interpretation Comments ALT (test code = ALT) 38 See_Comment [Auto mated message] The system which ge nerated this result transmit swathi reference range : <=65. The reference range was not used to interpr et this result as deny l/abnormal. [facility]2022-06-29 09:09:00 Test Item Value Reference Range Interpretation Comments AST (test code = AST) 31 See_Comment [Auto mated message] The system which ge nerated this result transmit swathi reference range : <=37. The reference range was not used to interpr et this result as deny l/abnormal. [facility]2022-06-29 09:09:00 Test Item Value Reference Range Interpretation Comments Alk Phos (test code = Alk Phos) 357 39-136 [facility] CampusUcsysnqAIYYFFFJYY7336-74-92 09:09:00 Test Item Value Reference Range Interpretation Comments Basophils (test code = 0.4 See_Comment [Aut omated message] The Basophils) system which ge nerated this result tra nsmitted reference range : <=1.0. The reference r samantha was not used to int erpret this result as normal/abnormal . [facility]2022-06-29 09:09:00 Test Item Value Reference Range Interpretation Comments Bili Total (test code = Bili Total) 1.0 0.2-1.3 [place] 506282-06-29 09:09:00 Test Item Value Reference Range Interpretation Comments eGFR (test code = eGFR) 8 [place] 506282-06-29 09:09:00 Test Item Value Reference Range Interpretation Comments Magnesium Lvl (test code = Magnesium 2.0 1.8-2.4 Lvl) [place] 506282-06-29 09:09:00 Test Item Value Reference Range Interpretation Comments LDH (test code = LDH) 251 98-192 [place] 506282-06-29 09:09:00 Test Item Value Reference Range Interpretation Comments Procalcitonin Lvl (test 0.51 See_Comment [Au tomated message] code = Procalcitonin Lvl) e system which generated this result transmitted ref erence range: <=0.10. The reference range was not used to interpr et this result as normal/abnormal . [facility] CampusVjshlbzFPGXSLGLFU2997-15-29 09:09:00 Test Item Value Reference Range Interpretation Comments D-Dimer (test code = D-Dimer) 5.06 [place] 155092-06-29 09:09:00 Test Item Value Reference Range Interpretation Comments WBC (test code = WBC) 4.8 3.7-10.4 [place] 155092-06-29 09:09:00 Test Item Value Reference Range Interpretation Comments RBC (test code = RBC) 2.14 4.70-6.10 [place] 155092-06-29 09:09:00 Test Item Value Reference Range Interpretation Comments Hgb (test code = Hgb) 7.7 14.0-18.0 [place] 155092-06-29 09:09:00 Test Item Value Reference Range Interpretation Comments Hct (test code = Hct) 22.8 42.0-54.0 [place] 155092-06-29 09:09:00 Test Item Value Reference Range Interpretation Comments Neutrophils # (test code = Neutrophils 4.0 1.5-8.1 #) [place] 155092-06-29 09:09:00 Test Item Value Reference Range Interpretation Comments MCV (test code = MCV) 106.5 80.0-94.0 [place] 155092-06-29 09:09:00 Test Item Value Reference Range Interpretation Comments MCH (test code = MCH) 36.1 pg 27.0-31.0 [facility] CampusUkvslrmARJCBMERQB3608-01-80 09:09:00 Test Item Value Reference Range Interpretation Comments MCHC (test code = MCHC) 33.9 32.0-36.0 [facility] CampusBaklxboZYBTZYEYKU1246-52-30 09:09:00 Test Item Value Reference Range Interpretation Comments RDW (test code = RDW) 21.8 11.5-14.5 [facility] CampusRckdpqtOYBPIGJDFC5080-48-50 09:09:00 Test Item Value Reference Range Interpretation Comments Platelet (test code = Platelet) 176 133-450 [facility] CampusRwpozlzOICXSJUVIZ1824-00-03 09:09:00 Test Item Value Reference Range Interpretation Comments MPV (test code = MPV) 8.2 7.4-10.4 [place] 155092-06-29 09:09:00 Test Item Value Reference Range Interpretation Comments Segs (test code = Segs) 83.6 45.0-75.0 [facility] CampusJxhtmftFHMYJTKIAH9246-60-98 09:09:00 Test Item Value Reference Range Interpretation Comments Lymphocytes (test code = Lymphocytes) 10.7 20.0-40.0 [facility] CampusEmlufpaVTRAROJMHC7429-75-85 09:09:00 Test Item Value Reference Range Interpretation Comments Monocytes (test code = Monocytes) 4.9 2.0-12.0 [place] 155092-06-29 09:09:00 Test Item Value Reference Range Interpretation Comments Eosinophils (test code = 0.4 See_Comment [A utomated message] The Eosinophils) system which ge nerated this result tra nsmitted reference range : <=4.0. The reference r samantha was not used to int erpret this result as normal/abnormal . [facility] CampusMdnetrkBWUPZFCFAX2757-14-65 09:09:00 Test Item Value Reference Range Interpretation Comments Lymphocytes # (test code = Lymphocytes 0.5 1.0-5.5 #) [facility] CampusZqwbkwnDVKBTXXZYL1497-01-90 09:09:00 Test Item Value Reference Range Interpretation Comments Basophils (test code = 0.4 See_Comment [Aut omated message] The Basophils) system which ge nerated this result tra nsmitted reference range : <=1.0. The reference r samantha was not used to int erpret this result as normal/abnormal . [place] 155092-06-29 09:09:00 Test Item Value Reference Range Interpretation Comments Neutrophils # (test code = Neutrophils 4.0 1.5-8.1 #) [facility] CampusJymipkyAPWXYKHHBR2421-24-56 09:09:00 Test Item Value Reference Range Interpretation Comments Lymphocytes # (test code = Lymphocytes 0.5 1.0-5.5 #) [place] 155092-06-29 09:09:00 Test Item Value Reference Range Interpretation Comments Monocytes # (test code 0.2 See_Comment [Aut omated message] The = Monocytes #) system which generated this result tra nsmitted reference range : <=0.8. The reference r samantha was not used to int erpret this result as normal/abnormal . [place] [address]-06-29 09:09:00 Test Item Value Reference Range Interpretation Comments Macrocyte (test code = 1+ *ABN*(11/26/21 Macrocyte) 4:09 AM) [place] 498432-06-29 09:09:00 Test Item Value Reference Range Interpretation Comments Interleukin 6 (test code = Interleukin 14.71 6) [place] 498432-06-29 09:09:00 Test Item Value Reference Range Interpretation Comments C-REACTIVE PROTEIN (test code = 95.9 C-REACTIVE PROTEIN) [place] 155092-06-29 09:09:00 Test Item Value Reference Range Interpretation Comments Monocytes # (test code 0.2 See_Comment [Aut omated message] The = Monocytes #) system which generated this result tra nsmitted reference range : <=0.8. The reference r samantha was not used to int erpret this result as normal/abnormal . [facility] CampusQhfovowEQVOEWXPVA8808-98-05 09:09:00 Test Item Value Reference Range Interpretation Comments Macrocyte (test code = 1+ *ABN*(11/26/21 Macrocyte) 4:09 AM) [place] 498432-06-29 09:09:00 Test Item Value Reference Range Interpretation Comments Interleukin 6 (test code = Interleukin 14.71 6) [place] [address]-06-29 09:09:00 Test Item Value Reference Range Interpretation Comments C-REACTIVE PROTEIN (test code = 95.9 C-REACTIVE PROTEIN) [facility]2022-06-29 09:09:00 Test Item Value Reference Range Interpretation Comments Ferritin Lvl (test code = Ferritin Lvl) 1543 22275 [place] 506282-06-29 09:09:00 Test Item Value Reference Range Interpretation Comments Glucose Lvl (test code = Glucose Lvl) 288 70-99 [place] 506282-06-29 09:09:00 Test Item Value Reference Range Interpretation Comments BUN (test code = BUN) 40 7-22 [place] 506282-06-29 09:09:00 Test Item Value Reference Range Interpretation Comments Creatinine Lvl (test code = Creatinine 6.23 0.50-1.40 Lvl) [place] 506282-06-29 09:09:00 Test Item Value Reference Range Interpretation Comments Sodium Lvl (test code = Sodium Lvl) 134 135-145 [place] 506282-06-29 09:09:00 Test Item Value Reference Range Interpretation Comments Potassium Lvl (test code = Potassium 4.5 3.5-5.1 Lvl) [place] 506282-06-29 09:09:00 Test Item Value Reference Range Interpretation Comments Chloride Lvl (test code = Chloride Lvl) 96 95-109 [place] 506282-06-29 09:09:00 Test Item Value Reference Range Interpretation Comments CO2 (test code = CO2) 29 24-32 [place] 506282-06-29 09:09:00 Test Item Value Reference Range Interpretation Comments AGAP (test code = AGAP) 13.5 10.0-20.0 [place] 506282-06-29 09:09:00 Test Item Value Reference Range Interpretation Comments Calcium Lvl (test code = Calcium Lvl) 9.1 8.5-10.5 [place] 506282-06-29 09:09:00 Test Item Value Reference Range Interpretation Comments B/C Ratio (test code = B/C Ratio) 6 1 6-25 [place] 506282-06-29 09:09:00 Test Item Value Reference Range Interpretation Comments Total Protein (test code = Total 6.3 6.4-8.4 Protein) [place] 506282-06-29 09:09:00 Test Item Value Reference Range Interpretation Comments Albumin Lvl (test code = Albumin Lvl) 2.5 3.5-5.0 [place] 506282-06-29 09:09:00 Test Item Value Reference Range Interpretation Comments Globulin (test code = Globulin) 3.8 2.7-4.2 [place] 506282-06-29 09:09:00 Test Item Value Reference Range Interpretation Comments A/G Ratio (test code = A/G Ratio) 0.7 1 0.7-1.6 [place] [address]-06-29 09:09:00 Test Item Value Reference Range Interpretation Comments ALT (test code = ALT) 38 See_Comment [Auto mated message] The system which ge nerated this result transmit swathi reference range : <=65. The reference range was not used to interpr et this result as deny l/abnormal. [facility] [id number] 09:09:00 Test Item Value Reference Range Interpretation Comments AST (test code = AST) 31 See_Comment [Auto mated message] The system which ge nerated this result transmit swathi reference range : <=37. The reference range was not used to interpr et this result as deny l/abnormal. [facility] [id number] 09:09:00 Test Item Value Reference Range Interpretation Comments Alk Phos (test code = Alk Phos) 357 39-136 [facility] [id number] 09:09:00 Test Item Value Reference Range Interpretation Comments Bili Total (test code = Bili Total) 1.0 0.2-1.3 [facility] [id number] 09:09:00 Test Item Value Reference Range Interpretation Comments eGFR (test code = eGFR) 8 [facility] VJXGD5803-06-27 09:09:00 Test Item Value Reference Range Interpretation Comments Magnesium Lvl (test code = Magnesium 2.0 1.8-2.4 Lvl) [facility] [id number] 09:09:00 Test Item Value Reference Range Interpretation Comments LDH (test code = LDH) 251 98-192 [facility]Dispatch [id number] 09:09:00 Test Item Value Reference Range Interpretation Comments Procalcitonin Lvl (test 0.51 See_Comment [Au tomated message] code = Procalcitonin Lvl) Th e system which generated this result transmitted ref erence range: <=0.10. The reference range was not used to interpr et this result as normal/abnormal . [facility] CampusSqdmrxaSYQSTOOXPV9274-92-60 09:09:00 Test Item Value Reference Range Interpretation Comments D-Dimer (test code = D-Dimer) 5.06 [facility] CampusKettpcqPETGVZMZZJ2896-08-57 09:09:00 Test Item Value Reference Range Interpretation Comments WBC (test code = WBC) 4.8 3.7-10.4 [facility] CampusTnmzvbaBCNBUEJGAJ8368-97-76 09:09:00 Test Item Value Reference Range Interpretation Comments RBC (test code = RBC) 2.14 4.70-6.10 [facility] CampusAnzxldmOQPKBQAXSA5608-70-43 09:09:00 Test Item Value Reference Range Interpretation Comments Hgb (test code = Hgb) 7.7 14.0-18.0 [facility] CampusUstoyufUQJCMMXIKU7108-32-75 09:09:00 Test Item Value Reference Range Interpretation Comments Hct (test code = Hct) 22.8 42.0-54.0 [facility] CampusOyqzmziMSWVMVFVLJ9277-95-36 09:09:00 Test Item Value Reference Range Interpretation Comments MCV (test code = MCV) 106.5 80.0-94.0 [facility] CampusGxtkbkyZOXNPRWFLA0679-82-73 09:09:00 Test Item Value Reference Range Interpretation Comments MCH (test code = MCH) 36.1 pg 27.0-31.0 [facility] CampusZejkpjhIURKSMSRDK1276-36-22 09:09:00 Test Item Value Reference Range Interpretation Comments MCHC (test code = MCHC) 33.9 32.0-36.0 [facility] CampusSqrcdpiMWDBBUZYNO1582-34-22 09:09:00 Test Item Value Reference Range Interpretation Comments RDW (test code = RDW) 21.8 11.5-14.5 [facility] CampusSdnrbdaPNRCWRLJSA8496-93-68 09:09:00 Test Item Value Reference Range Interpretation Comments Platelet (test code = Platelet) 176 133-450 [facility] CampusAmwlwodSNEKHYHPUP5020-89-66 09:09:00 Test Item Value Reference Range Interpretation Comments MPV (test code = MPV) 8.2 7.4-10.4 [facility] CampusPkjjesuONDWASPXCE5240-38-58 09:09:00 Test Item Value Reference Range Interpretation Comments Segs (test code = Segs) 83.6 45.0-75.0 [facility] CampusCkirlmvLIUWUVDPQZ2874-66-82 09:09:00 Test Item Value Reference Range Interpretation Comments Lymphocytes (test code = Lymphocytes) 10.7 20.0-40.0 [facility] CampusPeyfoajDDTTFGYNOK9552-70-34 09:09:00 Test Item Value Reference Range Interpretation Comments Monocytes (test code = Monocytes) 4.9 2.0-12.0 [facility] CampusPctfiabAWZLQOMYLA5744-71-63 09:09:00 Test Item Value Reference Range Interpretation Comments Eosinophils (test code = 0.4 See_Comment [A utomated message] The Eosinophils) system which ge nerated this result tra nsmitted reference range : <=4.0. The reference r samantha was not used to int erpret this result as normal/abnormal . [facility] CampusBqemnnzUDMCSMNCUR4807-72-60 09:09:00 Test Item Value Reference Range Interpretation Comments Basophils (test code = 0.4 See_Comment [Aut omated message] The Basophils) system which ge nerated this result tra nsmitted reference range : <=1.0. The reference r samantha was not used to int erpret this result as normal/abnormal . [facility] CampusHaephqyFOEEKGMFFK4891-18-74 09:09:00 Test Item Value Reference Range Interpretation Comments Neutrophils # (test code = Neutrophils 4.0 1.5-8.1 #) [facility] CampusOghbolrUWNTYKLVSP8692-05-04 09:09:00 Test Item Value Reference Range Interpretation Comments Lymphocytes # (test code = Lymphocytes 0.5 1.0-5.5 #) [facility] CampusQkdphbdBXSGFZGSSX9229-72-50 09:09:00 Test Item Value Reference Range Interpretation Comments Monocytes # (test code 0.2 See_Comment [Aut omated message] The = Monocytes #) system which generated this result tra nsmitted reference range : <=0.8. The reference r samantha was not used to int erpret this result as normal/abnormal . [facility] CampusLuawvtyHHUFWVDKXB2497-31-58 09:09:00 Test Item Value Reference Range Interpretation Comments Macrocyte (test code = 1+ *ABN*(11/26/21 Macrocyte) 4:09 AM) [facility]qu[facility]hJSRLITUGKT0185-80-26 09:09:00 Test Item Value Reference Range Interpretation Comments Interleukin 6 (test code = Interleukin 14.71 6) [facility]HltzeqwWISRUAACQL2879-90-98 09:09:00 Test Item Value Reference Range Interpretation Comments C-REACTIVE PROTEIN (test code = 95.9 C-REACTIVE PROTEIN) [facility]2022-06-29 09:09:00 Test Item Value Reference Range Interpretation Comments Ferritin Lvl (test code = Ferritin Lvl) 1543 22-275 [facility]2022-06-29 09:09:00 Test Item Value Reference Range Interpretation Comments Glucose Lvl (test code = Glucose Lvl) 288 70-99 [facility]2022-06-29 09:09:00 Test Item Value Reference Range Interpretation Comments BUN (test code = BUN) 40 7-22 [facility]2022-06-29 09:09:00 Test Item Value Reference Range Interpretation Comments Creatinine Lvl (test code = Creatinine 6.23 0.50-1.40 Lvl) [facility]2022-06-29 09:09:00 Test Item Value Reference Range Interpretation Comments Sodium Lvl (test code = Sodium Lvl) 134 135-145 [facility]2022-06-29 09:09:00 Test Item Value Reference Range Interpretation Comments Potassium Lvl (test code = Potassium 4.5 3.5-5.1 Lvl) [facility]2022-06-29 09:09:00 Test Item Value Reference Range Interpretation Comments Chloride Lvl (test code = Chloride Lvl) 96 95-109 [facility]2022-06-29 09:09:00 Test Item Value Reference Range Interpretation Comments CO2 (test code = CO2) 29 24-32 [place] 506282-06-29 09:09:00 Test Item Value Reference Range Interpretation Comments AGAP (test code = AGAP) 13.5 10.0-20.0 [place] 506282-06-29 09:09:00 Test Item Value Reference Range Interpretation Comments Calcium Lvl (test code = Calcium Lvl) 9.1 8.5-10.5 [place]282-06-29 09:09:00 Test Item Value Reference Range Interpretation Comments B/C Ratio (test code = B/C Ratio) 6 1 6-25 [place] 506282-06-29 09:09:00 Test Item Value Reference Range Interpretation Comments Total Protein (test code = Total 6.3 6.4-8.4 Protein) [place] 506282-06-29 09:09:00 Test Item Value Reference Range Interpretation Comments Albumin Lvl (test code = Albumin Lvl) 2.5 3.5-5.0 [place] 506282-06-29 09:09:00 Test Item Value Reference Range Interpretation Comments Globulin (test code = Globulin) 3.8 2.7-4.2 [place] [address]-06-29 09:09:00 Test Item Value Reference Range Interpretation Comments A/G Ratio (test code = A/G Ratio) 0.7 1 0.7-1.6 [place] 506282-06-29 09:09:00 Test Item Value Reference Range Interpretation Comments ALT (test code = ALT) 38 See_Comment [Auto mated message] The system which ge nerated this result transmit swathi reference range : <=65. The reference range was not used to interpr et this result as deny l/abnormal. [place] 506282-06-29 09:09:00 Test Item Value Reference Range Interpretation Comments AST (test code = AST) 31 See_Comment [Auto mated message] The system which ge nerated this result transmit swathi reference range : <=37. The reference range was not used to interpr et this result as deny l/abnormal. [place] 506282-06-29 09:09:00 Test Item Value Reference Range Interpretation Comments Alk Phos (test code = Alk Phos) 357 39-136 [place] 506282-06-29 09:09:00 Test Item Value Reference Range Interpretation Comments Bili Total (test code = Bili Total) 1.0 0.2-1.3 [place] 506282-06-29 09:09:00 Test Item Value Reference Range Interpretation Comments eGFR (test code = eGFR) 8 [place] 506282-06-29 09:09:00 Test Item Value Reference Range Interpretation Comments Magnesium Lvl (test code = Magnesium 2.0 1.8-2.4 Lvl) [place] 506282-06-29 09:09:00 Test Item Value Reference Range Interpretation Comments LDH (test code = LDH) 251 98-192 [facility]2022-06-29 09:09:00 Test Item Value Reference Range Interpretation Comments Procalcitonin Lvl (test 0.51 See_Comment [Au tomated message] code = Procalcitonin Lvl) Th e system which generated this result transmitted ref erence range: <=0.10. The reference range was not used to interpr et this result as normal/abnormal . [facility] CampusUjjowibZAGCSWFJPC0328-89-07 09:09:00 Test Item Value Reference Range Interpretation Comments D-Dimer (test code = D-Dimer) 5.06 [facility] CampusNsdkzscNZZRGOBPCC0714-68-42 09:09:00 Test Item Value Reference Range Interpretation Comments WBC (test code = WBC) 4.8 3.7-10.4 [facility] CampusTmdyvviIMSDUSGIPQ3952-30-89 09:09:00 Test Item Value Reference Range Interpretation Comments RBC (test code = RBC) 2.14 4.70-6.10 [facility] CampusHjhqjucJURKGHMAZD2000-38-41 09:09:00 Test Item Value Reference Range Interpretation Comments Hgb (test code = Hgb) 7.7 14.0-18.0 [facility] CampusZkuzsakVWFWTYRCJO0409-10-32 09:09:00 Test Item Value Reference Range Interpretation Comments Hct (test code = Hct) 22.8 42.0-54.0 [facility] CampusDkmxlxnERBRUEYMQZ7315-48-42 09:09:00 Test Item Value Reference Range Interpretation Comments MCV (test code = MCV) 106.5 80.0-94.0 [facility] CampusLlnlijwZAYBYVDDHZ6223-92-63 09:09:00 Test Item Value Reference Range Interpretation Comments MCH (test code = MCH) 36.1 pg 27.0-31.0 [facility] CampusJpepvjpXGJSZJPMOE2845-58-00 09:09:00 Test Item Value Reference Range Interpretation Comments MCHC (test code = MCHC) 33.9 32.0-36.0 [facility] CampusUucofowDNAJPXSRKM3667-73-32 09:09:00 Test Item Value Reference Range Interpretation Comments RDW (test code = RDW) 21.8 11.5-14.5 [facility] CampusQmnfuwiFAEFOQQLVW3897-00-54 09:09:00 Test Item Value Reference Range Interpretation Comments Platelet (test code = Platelet) 176 133-450 [facility] CampusVfeygxbKYLRFLXFWR2425-34-28 09:09:00 Test Item Value Reference Range Interpretation Comments MPV (test code = MPV) 8.2 7.4-10.4 [facility] CampusIbkzlsqECROAPPUBO7278-88-55 09:09:00 Test Item Value Reference Range Interpretation Comments Segs (test code = Segs) 83.6 45.0-75.0 [place] 155092-06-29 09:09:00 Test Item Value Reference Range Interpretation Comments Lymphocytes (test code = Lymphocytes) 10.7 20.0-40.0 [place] 155092-06-29 09:09:00 Test Item Value Reference Range Interpretation Comments Monocytes (test code = Monocytes) 4.9 2.0-12.0 [place] 155092-06-29 09:09:00 Test Item Value Reference Range Interpretation Comments Eosinophils (test code = 0.4 See_Comment [A utomated message] The Eosinophils) system which ge nerated this result tra nsmitted reference range : <=4.0. The reference r samantha was not used to int erpret this result as normal/abnormal . [facility] CampusNelisokRXWCCPPCFJ3195-49-08 09:09:00 Test Item Value Reference Range Interpretation Comments Basophils (test code = 0.4 See_Comment [Aut omated message] The Basophils) system which ge nerated this result tra nsmitted reference range : <=1.0. The reference r samantha was not used to int erpret this result as normal/abnormal . [facility] CampusRypawbbOIWZQUEPDL6043-19-44 09:09:00 Test Item Value Reference Range Interpretation Comments Neutrophils # (test code = Neutrophils 4.0 1.5-8.1 #) [facility] CampusKyajcceSUYPEXVHRG2101-20-60 09:09:00 Test Item Value Reference Range Interpretation Comments Lymphocytes # (test code = Lymphocytes 0.5 1.0-5.5 #) [place] 155092-06-29 09:09:00 Test Item Value Reference Range Interpretation Comments Monocytes # (test code 0.2 See_Comment [Aut omated message] The = Monocytes #) system which generated this result tra nsmitted reference range : <=0.8. The reference r samantha was not used to int erpret this result as normal/abnormal . [facility] CampusIzbptuwZYQTSKRDMF2721-84-47 09:09:00 Test Item Value Reference Range Interpretation Comments Macrocyte (test code = 1+ *ABN*(11/26/21 Macrocyte) 4:09 AM) [facility] CenterXhvwcsuHUQCZBYZRL7733-21-00 09:09:00 Test Item Value Reference Range Interpretation Comments Interleukin 6 (test code = Interleukin 14.71 6) [place] 498432-06-29 09:09:00 Test Item Value Reference Range Interpretation Comments C-REACTIVE PROTEIN (test code = 95.9 C-REACTIVE PROTEIN) [facility]2022-06-29 09:09:00 Test Item Value Reference Range Interpretation Comments Ferritin Lvl (test code = Ferritin Lvl) 1543 22275 [facility]2022-06-29 09:09:00 Test Item Value Reference Range Interpretation Comments Glucose Lvl (test code = Glucose Lvl) 288 70-99 [facility]2022-06-29 09:09:00 Test Item Value Reference Range Interpretation Comments BUN (test code = BUN) 40 7-22 [place] 506282-06-29 09:09:00 Test Item Value Reference Range Interpretation Comments Creatinine Lvl (test code = Creatinine 6.23 0.50-1.40 Lvl) [facility]2022-06-29 09:09:00 Test Item Value Reference Range Interpretation Comments Sodium Lvl (test code = Sodium Lvl) 134 135-145 [place] 506282-06-29 09:09:00 Test Item Value Reference Range Interpretation Comments Potassium Lvl (test code = Potassium 4.5 3.5-5.1 Lvl) [place] 506282-06-29 09:09:00 Test Item Value Reference Range Interpretation Comments Chloride Lvl (test code = Chloride Lvl) 96 95-109 [place] 506282-06-29 09:09:00 Test Item Value Reference Range Interpretation Comments CO2 (test code = CO2) 29 24-32 [facility]2022-06-29 09:09:00 Test Item Value Reference Range Interpretation Comments AGAP (test code = AGAP) 13.5 10.0-20.0 [place] 506282-06-29 09:09:00 Test Item Value Reference Range Interpretation Comments Calcium Lvl (test code = Calcium Lvl) 9.1 8.5-10.5 [place] 506282-06-29 09:09:00 Test Item Value Reference Range Interpretation Comments B/C Ratio (test code = B/C Ratio) 6 1 6-25 [place] 506282-06-29 09:09:00 Test Item Value Reference Range Interpretation Comments Total Protein (test code = Total 6.3 6.4-8.4 Protein) [place] 506282-06-29 09:09:00 Test Item Value Reference Range Interpretation Comments Albumin Lvl (test code = Albumin Lvl) 2.5 3.5-5.0 [place] 506282-06-29 09:09:00 Test Item Value Reference Range Interpretation Comments Globulin (test code = Globulin) 3.8 2.7-4.2 [place] 506282-06-29 09:09:00 Test Item Value Reference Range Interpretation Comments A/G Ratio (test code = A/G Ratio) 0.7 1 0.7-1.6 [place]282-06-29 09:09:00 Test Item Value Reference Range Interpretation Comments ALT (test code = ALT) 38 See_Comment [Auto mated message] The system which ge nerated this result transmit swathi reference range : <=65. The reference range was not used to interpr et this result as deny l/abnormal. [facility]2022-06-29 09:09:00 Test Item Value Reference Range Interpretation Comments AST (test code = AST) 31 See_Comment [Auto mated message] The system which ge nerated this result transmit swathi reference range : <=37. The reference range was not used to interpr et this result as deny l/abnormal. [place] 506282-06-29 09:09:00 Test Item Value Reference Range Interpretation Comments Alk Phos (test code = Alk Phos) 357 39-136 [place] 506282-06-29 09:09:00 Test Item Value Reference Range Interpretation Comments Bili Total (test code = Bili Total) 1.0 0.2-1.3 [place] 506282-06-29 09:09:00 Test Item Value Reference Range Interpretation Comments eGFR (test code = eGFR) 8 [place] 506282-06-29 09:09:00 Test Item Value Reference Range Interpretation Comments Magnesium Lvl (test code = Magnesium 2.0 1.8-2.4 Lvl) [facility]2022-06-29 09:09:00 Test Item Value Reference Range Interpretation Comments LDH (test code = LDH) 251 98-192 [facility]2022-06-29 09:09:00 Test Item Value Reference Range Interpretation Comments Procalcitonin Lvl (test 0.51 See_Comment [Au tomated message] code = Procalcitonin Lvl) e system which generated this result transmitted ref erence range: <=0.10. The reference range was not used to interpr et this result as normal/abnormal . [facility] CampusSrliqxvAXBDDPPBYB2264-28-93 09:09:00 Test Item Value Reference Range Interpretation Comments D-Dimer (test code = D-Dimer) 5.06 [place] 155092-06-29 09:09:00 Test Item Value Reference Range Interpretation Comments WBC (test code = WBC) 4.8 3.7-10.4 [place] 155092-06-29 09:09:00 Test Item Value Reference Range Interpretation Comments RBC (test code = RBC) 2.14 4.70-6.10 [place] 155092-06-29 09:09:00 Test Item Value Reference Range Interpretation Comments Hgb (test code = Hgb) 7.7 14.0-18.0 [place] 155092-06-29 09:09:00 Test Item Value Reference Range Interpretation Comments Hct (test code = Hct) 22.8 42.0-54.0 [place] 155092-06-29 09:09:00 Test Item Value Reference Range Interpretation Comments MCV (test code = MCV) 106.5 80.0-94.0 [place] 155092-06-29 09:09:00 Test Item Value Reference Range Interpretation Comments MCH (test code = MCH) 36.1 pg 27.0-31.0 [facility] CampusLijjivaZNERAFWIYY3643-15-95 09:09:00 Test Item Value Reference Range Interpretation Comments MCHC (test code = MCHC) 33.9 32.0-36.0 [place] 155092-06-29 09:09:00 Test Item Value Reference Range Interpretation Comments RDW (test code = RDW) 21.8 11.5-14.5 [place] 155092-06-29 09:09:00 Test Item Value Reference Range Interpretation Comments Platelet (test code = Platelet) 176 133-450 [place] 155092-06-29 09:09:00 Test Item Value Reference Range Interpretation Comments MPV (test code = MPV) 8.2 7.4-10.4 [place] 155092-06-29 09:09:00 Test Item Value Reference Range Interpretation Comments Segs (test code = Segs) 83.6 45.0-75.0 [place] 155092-06-29 09:09:00 Test Item Value Reference Range Interpretation Comments Lymphocytes (test code = Lymphocytes) 10.7 20.0-40.0 [place] 155092-06-29 09:09:00 Test Item Value Reference Range Interpretation Comments Monocytes (test code = Monocytes) 4.9 2.0-12.0 [place] 155092-06-29 09:09:00 Test Item Value Reference Range Interpretation Comments Eosinophils (test code = 0.4 See_Comment [A utomated message] The Eosinophils) system which ge nerated this result tra nsmitted reference range : <=4.0. The reference r samantha was not used to int erpret this result as normal/abnormal . [facility] CampusMwgzinaZWFQYVXWGT4556-68-09 09:09:00 Test Item Value Reference Range Interpretation Comments Basophils (test code = 0.4 See_Comment [Aut omated message] The Basophils) system which ge nerated this result tra nsmitted reference range : <=1.0. The reference r samantha was not used to int erpret this result as normal/abnormal . [facility] CampusHjoadhlKQHGSEUOWI8548-34-66 09:09:00 Test Item Value Reference Range Interpretation Comments Neutrophils # (test code = Neutrophils 4.0 1.5-8.1 #) [place] 155092-06-29 09:09:00 Test Item Value Reference Range Interpretation Comments Lymphocytes # (test code = Lymphocytes 0.5 1.0-5.5 #) [place] 155092-06-29 09:09:00 Test Item Value Reference Range Interpretation Comments Monocytes # (test code 0.2 See_Comment [Aut omated message] The = Monocytes #) system which generated this result tra nsmitted reference range : <=0.8. The reference r samantha was not used to int erpret this result as normal/abnormal . [facility] CampusBpriuivVBBKFGDTIA5499-26-58 09:09:00 Test Item Value Reference Range Interpretation Comments Macrocyte (test code = 1+ *ABN*(11/26/21 Macrocyte) 4:09 AM) [facility]CqnlhajEYJYWYIDBT9714-54-27 09:09:00 Test Item Value Reference Range Interpretation Comments Interleukin 6 (test code = Interleukin 14.71 6) [place] 498432-06-29 09:09:00 Test Item Value Reference Range Interpretation Comments C-REACTIVE PROTEIN (test code = 95.9 C-REACTIVE PROTEIN) [facility]2022-06-29 09:09:00 Test Item Value Reference Range Interpretation Comments Ferritin Lvl (test code = Ferritin Lvl) 1543 22275 [facility]2022-06-29 09:09:00 Test Item Value Reference Range Interpretation Comments Glucose Lvl (test code = Glucose Lvl) 288 70-99 [place] 506282-06-29 09:09:00 Test Item Value Reference Range Interpretation Comments BUN (test code = BUN) 40 7-22 [facility]2022-06-29 09:09:00 Test Item Value Reference Range Interpretation Comments Creatinine Lvl (test code = Creatinine 6.23 0.50-1.40 Lvl) [facility]2022-06-29 09:09:00 Test Item Value Reference Range Interpretation Comments Sodium Lvl (test code = Sodium Lvl) 134 135-145 [facility]2022-06-29 09:09:00 Test Item Value Reference Range Interpretation Comments Potassium Lvl (test code = Potassium 4.5 3.5-5.1 Lvl) [place] 506282-06-29 09:09:00 Test Item Value Reference Range Interpretation Comments Chloride Lvl (test code = Chloride Lvl) 96 95-109 [place] 506282-06-29 09:09:00 Test Item Value Reference Range Interpretation Comments CO2 (test code = CO2) 29 24-32 [place] 506282-06-29 09:09:00 Test Item Value Reference Range Interpretation Comments AGAP (test code = AGAP) 13.5 10.0-20.0 [place] 506282-06-29 09:09:00 Test Item Value Reference Range Interpretation Comments Calcium Lvl (test code = Calcium Lvl) 9.1 8.5-10.5 [place] 506282-06-29 09:09:00 Test Item Value Reference Range Interpretation Comments B/C Ratio (test code = B/C Ratio) 6 1 6-25 [place] 506282-06-29 09:09:00 Test Item Value Reference Range Interpretation Comments Total Protein (test code = Total 6.3 6.4-8.4 Protein) [place] 506282-06-29 09:09:00 Test Item Value Reference Range Interpretation Comments Albumin Lvl (test code = Albumin Lvl) 2.5 3.5-5.0 [place] 506282-06-29 09:09:00 Test Item Value Reference Range Interpretation Comments Globulin (test code = Globulin) 3.8 2.7-4.2 [place] 506282-06-29 09:09:00 Test Item Value Reference Range Interpretation Comments A/G Ratio (test code = A/G Ratio) 0.7 1 0.7-1.6 [place] 506282-06-29 09:09:00 Test Item Value Reference Range Interpretation Comments ALT (test code = ALT) 38 See_Comment [Auto mated message] The system which ge nerated this result transmit swathi reference range : <=65. The reference range was not used to interpr et this result as deny l/abnormal. [place] 506282-06-29 09:09:00 Test Item Value Reference Range Interpretation Comments AST (test code = AST) 31 See_Comment [Auto mated message] The system which ge nerated this result transmit swathi reference range : <=37. The reference range was not used to interpr et this result as deny l/abnormal. [place] 506282-06-29 09:09:00 Test Item Value Reference Range Interpretation Comments Alk Phos (test code = Alk Phos) 357 39-136 [place] 506282-06-29 09:09:00 Test Item Value Reference Range Interpretation Comments Bili Total (test code = Bili Total) 1.0 0.2-1.3 [place] 506282-06-29 09:09:00 Test Item Value Reference Range Interpretation Comments eGFR (test code = eGFR) 8 [place] 506282-06-29 09:09:00 Test Item Value Reference Range Interpretation Comments Magnesium Lvl (test code = Magnesium 2.0 1.8-2.4 Lvl) [place] 506282-06-29 09:09:00 Test Item Value Reference Range Interpretation Comments LDH (test code = LDH) 251 98-192 [facility]2022-06-29 09:09:00 Test Item Value Reference Range Interpretation Comments Procalcitonin Lvl (test 0.51 See_Comment [Au tomated message] code = Procalcitonin Lvl) e system which generated this result transmitted ref erence range: <=0.10. The reference range was not used to interpr et this result as normal/abnormal . [place] 155092-06-29 09:09:00 Test Item Value Reference Range Interpretation Comments D-Dimer (test code = D-Dimer) 5.06 [place] [address]-06-29 09:09:00 Test Item Value Reference Range Interpretation Comments WBC (test code = WBC) 4.8 3.7-10.4 [place] 155092-06-29 09:09:00 Test Item Value Reference Range Interpretation Comments RBC (test code = RBC) 2.14 4.70-6.10 [place] 155092-06-29 09:09:00 Test Item Value Reference Range Interpretation Comments Hgb (test code = Hgb) 7.7 14.0-18.0 [place] [address]-06-29 09:09:00 Test Item Value Reference Range Interpretation Comments Hct (test code = Hct) 22.8 42.0-54.0 [place] [address]-06-29 09:09:00 Test Item Value Reference Range Interpretation Comments MCV (test code = MCV) 106.5 80.0-94.0 [place] [address]-06-29 09:09:00 Test Item Value Reference Range Interpretation Comments MCH (test code = MCH) 36.1 pg 27.0-31.0 [place] 155092-06-29 09:09:00 Test Item Value Reference Range Interpretation Comments MCHC (test code = MCHC) 33.9 32.0-36.0 [facility] CampusRiaqjuuDFTYIWRTPG7048-76-02 09:09:00 Test Item Value Reference Range Interpretation Comments RDW (test code = RDW) 21.8 11.5-14.5 [place] 155092-06-29 09:09:00 Test Item Value Reference Range Interpretation Comments Platelet (test code = Platelet) 176 133-450 [facility] CampusHenkpvmWDXVQGTSYL4023-52-26 09:09:00 Test Item Value Reference Range Interpretation Comments MPV (test code = MPV) 8.2 7.4-10.4 [place] 155092-06-29 09:09:00 Test Item Value Reference Range Interpretation Comments Segs (test code = Segs) 83.6 45.0-75.0 [place] 155092-06-29 09:09:00 Test Item Value Reference Range Interpretation Comments Lymphocytes (test code = Lymphocytes) 10.7 20.0-40.0 [facility] CampusJytzghzKSIVQSAHMP5781-05-49 09:09:00 Test Item Value Reference Range Interpretation Comments Monocytes (test code = Monocytes) 4.9 2.0-12.0 [facility] CampusVrvoqhjYFXZBDXJNQ6605-86-93 09:09:00 Test Item Value Reference Range Interpretation Comments Eosinophils (test code = 0.4 See_Comment [A utomated message] The Eosinophils) system which ge nerated this result tra nsmitted reference range : <=4.0. The reference r samantha was not used to int erpret this result as normal/abnormal . [facility] CampusSdlehdwBUTHUHZJPT6429-52-76 09:09:00 Test Item Value Reference Range Interpretation Comments Basophils (test code = 0.4 See_Comment [Aut omated message] The Basophils) system which ge nerated this result tra nsmitted reference range : <=1.0. The reference r samantha was not used to int erpret this result as normal/abnormal . [facility] CampusIjqfkcbVDCTDYQVOR6187-14-38 09:09:00 Test Item Value Reference Range Interpretation Comments Neutrophils # (test code = Neutrophils 4.0 1.5-8.1 #) [facility] CampusUtkyszhQJKNSUXADO0544-46-51 09:09:00 Test Item Value Reference Range Interpretation Comments Lymphocytes # (test code = Lymphocytes 0.5 1.0-5.5 #) [facility] CampusYjviqqgNKLWPHALJO7385-58-42 09:09:00 Test Item Value Reference Range Interpretation Comments Monocytes # (test code 0.2 See_Comment [Aut omated message] The = Monocytes #) system which generated this result tra nsmitted reference range : <=0.8. The reference r samantha was not used to int erpret this result as normal/abnormal . [facility] CampusAfwxgetWOJVXOBQWS4430-43-36 09:09:00 Test Item Value Reference Range Interpretation Comments Macrocyte (test code = 1+ *ABN*(11/26/21 Macrocyte) 4:09 AM) [place] 498432-06-29 09:09:00 Test Item Value Reference Range Interpretation Comments Interleukin 6 (test code = Interleukin 14.71 6) [place] 498432-06-29 09:09:00 Test Item Value Reference Range Interpretation Comments C-REACTIVE PROTEIN (test code = 95.9 C-REACTIVE PROTEIN) [facility]2022-06-29 09:09:00 Test Item Value Reference Range Interpretation Comments Ferritin Lvl (test code = Ferritin Lvl) 1543 22-275 [place] 506282-06-29 09:09:00 Test Item Value Reference Range Interpretation Comments Glucose Lvl (test code = Glucose Lvl) 288 70-99 [facility]2022-06-29 09:09:00 Test Item Value Reference Range Interpretation Comments BUN (test code = BUN) 40 7-22 [place] 506282-06-29 09:09:00 Test Item Value Reference Range Interpretation Comments Creatinine Lvl (test code = Creatinine 6.23 0.50-1.40 Lvl) [place] 506282-06-29 09:09:00 Test Item Value Reference Range Interpretation Comments Sodium Lvl (test code = Sodium Lvl) 134 135-145 [place] 506282-06-29 09:09:00 Test Item Value Reference Range Interpretation Comments Potassium Lvl (test code = Potassium 4.5 3.5-5.1 Lvl) [facility]2022-06-29 09:09:00 Test Item Value Reference Range Interpretation Comments Chloride Lvl (test code = Chloride Lvl) 96 95-109 [place] 506282-06-29 09:09:00 Test Item Value Reference Range Interpretation Comments CO2 (test code = CO2) 29 24-32 [place] 506282-06-29 09:09:00 Test Item Value Reference Range Interpretation Comments AGAP (test code = AGAP) 13.5 10.0-20.0 [place] 506282-06-29 09:09:00 Test Item Value Reference Range Interpretation Comments Calcium Lvl (test code = Calcium Lvl) 9.1 8.5-10.5 [place] 506282-06-29 09:09:00 Test Item Value Reference Range Interpretation Comments B/C Ratio (test code = B/C Ratio) 6 1 6-25 [place] 506282-06-29 09:09:00 Test Item Value Reference Range Interpretation Comments Total Protein (test code = Total 6.3 6.4-8.4 Protein) [place] 506282-06-29 09:09:00 Test Item Value Reference Range Interpretation Comments Albumin Lvl (test code = Albumin Lvl) 2.5 3.5-5.0 [place] 506282-06-29 09:09:00 Test Item Value Reference Range Interpretation Comments Globulin (test code = Globulin) 3.8 2.7-4.2 [place] 506282-06-29 09:09:00 Test Item Value Reference Range Interpretation Comments A/G Ratio (test code = A/G Ratio) 0.7 1 0.7-1.6 [place] 506282-06-29 09:09:00 Test Item Value Reference Range Interpretation Comments ALT (test code = ALT) 38 See_Comment [Auto mated message] The system which ge nerated this result transmit swathi reference range : <=65. The reference range was not used to interpr et this result as deny l/abnormal. [facility] [id number] 09:09:00 Test Item Value Reference Range Interpretation Comments AST (test code = AST) 31 See_Comment [Auto mated message] The system which ge nerated this result transmit swathi reference range : <=37. The reference range was not used to interpr et this result as deny l/abnormal. [facility] CenterY[facility] OBUWF9909-04-81 09:09:00 Test Item Value Reference Range Interpretation Comments Alk Phos (test code = Alk Phos) 357 39-136 [facility]2022-06-29 09:09:00 Test Item Value Reference Range Interpretation Comments Bili Total (test code = Bili Total) 1.0 0.2-1.3 [place] 506282-06-29 09:09:00 Test Item Value Reference Range Interpretation Comments eGFR (test code = eGFR) 8 [facility]2022-06-29 09:09:00 Test Item Value Reference Range Interpretation Comments Magnesium Lvl (test code = Magnesium 2.0 1.8-2.4 Lvl) [facility]2022-06-29 09:09:00 Test Item Value Reference Range Interpretation Comments LDH (test code = LDH) 251 98-192 [place] 506282-06-29 09:09:00 Test Item Value Reference Range Interpretation Comments Procalcitonin Lvl (test 0.51 See_Comment [Au tomated message] code = Procalcitonin Lvl) e system which generated this result transmitted ref erence range: <=0.10. The reference range was not used to interpr et this result as normal/abnormal . [facility] CampusAupcrldXDZTSIPPKD2670-37-02 09:09:00 Test Item Value Reference Range Interpretation Comments D-Dimer (test code = D-Dimer) 5.06 [place] 155092-06-29 09:09:00 Test Item Value Reference Range Interpretation Comments WBC (test code = WBC) 4.8 3.7-10.4 [place] 155092-06-29 09:09:00 Test Item Value Reference Range Interpretation Comments RBC (test code = RBC) 2.14 4.70-6.10 [place] 155092-06-29 09:09:00 Test Item Value Reference Range Interpretation Comments Hgb (test code = Hgb) 7.7 14.0-18.0 [place] [address]-06-29 09:09:00 Test Item Value Reference Range Interpretation Comments Hct (test code = Hct) 22.8 42.0-54.0 [place] [address]-06-29 09:09:00 Test Item Value Reference Range Interpretation Comments MCV (test code = MCV) 106.5 80.0-94.0 [address]06-29 09:09:00 Test Item Value Reference Range Interpretation Comments MCH (test code = MCH) 36.1 pg 27.0-31.0 [facility] CampusGunwtgeDLSVTNARYR3025-26-31 09:09:00 Test Item Value Reference Range Interpretation Comments MCHC (test code = MCHC) 33.9 32.0-36.0 [facility] CampusAsiirnrXBMSDKZQIO6302-49-18 09:09:00 Test Item Value Reference Range Interpretation Comments RDW (test code = RDW) 21.8 11.5-14.5 [place] 155092-06-29 09:09:00 Test Item Value Reference Range Interpretation Comments Platelet (test code = Platelet) 176 133-450 [facility] CampusHxiixcvGTOIAMHRUR4514-98-06 09:09:00 Test Item Value Reference Range Interpretation Comments MPV (test code = MPV) 8.2 7.4-10.4 [facility] CampusYvqisujUZCPEFXZWE8456-42-96 09:09:00 Test Item Value Reference Range Interpretation Comments Segs (test code = Segs) 83.6 45.0-75.0 [facility] CampusJpevqbsMIBFZTUPGW7015-62-33 09:09:00 Test Item Value Reference Range Interpretation Comments Lymphocytes (test code = Lymphocytes) 10.7 20.0-40.0 [facility] CampusMjprsaxDFZSPZVBDR5745-40-96 09:09:00 Test Item Value Reference Range Interpretation Comments Monocytes (test code = Monocytes) 4.9 2.0-12.0 [facility] CampusOxvycxqVDTKCFRJKU6778-56-77 09:09:00 Test Item Value Reference Range Interpretation Comments Eosinophils (test code = 0.4 See_Comment [A utomated message] The Eosinophils) system which ge nerated this result tra nsmitted reference range : <=4.0. The reference r samantha was not used to int erpret this result as normal/abnormal . [facility] CampusNtnlvhhXUCJKADWWQ7279-03-62 09:09:00 Test Item Value Reference Range Interpretation Comments Basophils (test code = 0.4 See_Comment [Aut omated message] The Basophils) system which ge nerated this result tra nsmitted reference range : <=1.0. The reference r samantha was not used to int erpret this result as normal/abnormal . [facility] CampusUurfmbaMPMVWEDXXG0212-99-55 09:09:00 Test Item Value Reference Range Interpretation Comments Neutrophils # (test code = Neutrophils 4.0 1.5-8.1 #) [facility] CampusJzgkvaoNUXWAVMXML9263-54-38 09:09:00 Test Item Value Reference Range Interpretation Comments Lymphocytes # (test code = Lymphocytes 0.5 1.0-5.5 #) [place] 155092-06-29 09:09:00 Test Item Value Reference Range Interpretation Comments Monocytes # (test code 0.2 See_Comment [Aut omated message] The = Monocytes #) system which generated this result tra nsmitted reference range : <=0.8. The reference r samantha was not used to int erpret this result as normal/abnormal . [place] 155092-06-29 09:09:00 Test Item Value Reference Range Interpretation Comments Macrocyte (test code = 1+ *ABN*(11/26/21 Macrocyte) 4:09 AM) [place] 498432-06-29 09:09:00 Test Item Value Reference Range Interpretation Comments Interleukin 6 (test code = Interleukin 14.71 6) [place] 498432-06-29 09:09:00 Test Item Value Reference Range Interpretation Comments C-REACTIVE PROTEIN (test code = 95.9 C-REACTIVE PROTEIN) [place] 155092-06-28 12:33:00 Test Item Value Reference Range Interpretation Comments Segs (test code = Segs) 84.8 45.0-75.0 [place] 155092-06-28 12:33:00 Test Item Value Reference Range Interpretation Comments Lymphocytes (test code = Lymphocytes) 11.6 20.0-40.0 [place] 155092-06-28 12:33:00 Test Item Value Reference Range Interpretation Comments Monocytes (test code = Monocytes) 2.8 2.0-12.0 [place] 155092-06-28 12:33:00 Test Item Value Reference Range Interpretation Comments Eosinophils (test code = 0.4 See_Comment [A utomated message] The Eosinophils) system which ge nerated this result tra nsmitted reference range : <=4.0. The reference r smaantha was not used to int erpret this result as normal/abnormal . [facility] CampusSyeuofrSJPNCNKTLI2239-47-89 12:33:00 Test Item Value Reference Range Interpretation Comments Basophils (test code = 0.4 See_Comment [Aut omated message] The Basophils) system which ge nerated this result tra nsmitted reference range : <=1.0. The reference r samantha was not used to int erpret this result as normal/abnormal . [facility] CampusEdzhgyqMPIKPGCAKN8802-77-31 12:33:00 Test Item Value Reference Range Interpretation Comments Neutrophils # (test code = Neutrophils 4.4 1.5-8.1 #) [facility] CampusWlhstudXCFOHZRFKO3703-50-31 12:33:00 Test Item Value Reference Range Interpretation Comments Lymphocytes # (test code = Lymphocytes 0.6 1.0-5.5 #) [facility] CampusSaqmmrxNOAJWMCOMW8172-04-10 12:33:00 Test Item Value Reference Range Interpretation Comments Monocytes # (test code 0.1 See_Comment [Aut omated message] The = Monocytes #) system which generated this result tra nsmitted reference range : <=0.8. The reference r samantha was not used to int erpret this result as normal/abnormal . [facility] CampusFfqpcrpESWXKDXSIK8979-44-30 12:33:00 Test Item Value Reference Range Interpretation Comments Macrocyte (test code = 1+ *ABN*(11/25/21 Macrocyte) 7:33 AM) [place] 155092-06-28 12:33:00 Test Item Value Reference Range Interpretation Comments WBC (test code = WBC) 5.2 3.7-10.4 [place] 155092-06-28 12:33:00 Test Item Value Reference Range Interpretation Comments RBC (test code = RBC) 2.18 4.70-6.10 [place] 155092-06-28 12:33:00 Test Item Value Reference Range Interpretation Comments Hgb (test code = Hgb) 7.8 14.0-18.0 [place] [address]-06-28 12:33:00 Test Item Value Reference Range Interpretation Comments Hct (test code = Hct) 23.6 42.0-54.0 [place] 155092-06-28 12:33:00 Test Item Value Reference Range Interpretation Comments MCV (test code = MCV) 108.4 80.0-94.0 [place] 155092-06-28 12:33:00 Test Item Value Reference Range Interpretation Comments MCH (test code = MCH) 35.9 pg 27.0-31.0 [facility] CampusHwvkqckDZCLZNMTNK1760-35-98 12:33:00 Test Item Value Reference Range Interpretation Comments MCHC (test code = MCHC) 33.1 32.0-36.0 [facility] CampusGdjaqdgXJIEVCXFNC4745-63-52 12:33:00 Test Item Value Reference Range Interpretation Comments RDW (test code = RDW) 21.5 11.5-14.5 [facility] CampusCvkrxagZXCWXIBWQP8750-34-15 12:33:00 Test Item Value Reference Range Interpretation Comments Platelet (test code = Platelet) 167 133-450 [facility] CampusFvuypilZKXCYIMROS1148-18-08 12:33:00 Test Item Value Reference Range Interpretation Comments MPV (test code = MPV) 7.6 7.4-10.4 [place] 155092-06-28 12:33:00 Test Item Value Reference Range Interpretation Comments Segs (test code = Segs) 84.8 45.0-75.0 [facility] CampusPmyqizwBAVZDEMHVE6556-70-30 12:33:00 Test Item Value Reference Range Interpretation Comments Lymphocytes (test code = Lymphocytes) 11.6 20.0-40.0 [facility] CampusBjwezwnQXSPUUDIEK3037-31-66 12:33:00 Test Item Value Reference Range Interpretation Comments Monocytes (test code = Monocytes) 2.8 2.0-12.0 [facility] CampusBvstknoCPICFDSIKM4873-38-64 12:33:00 Test Item Value Reference Range Interpretation Comments Eosinophils (test code = 0.4 See_Comment [A utomated message] The Eosinophils) system which ge nerated this result tra nsmitted reference range : <=4.0. The reference r samantha was not used to int erpret this result as normal/abnormal . [facility] CampusKocdsojYCUWGMJWQU8171-09-39 12:33:00 Test Item Value Reference Range Interpretation Comments Basophils (test code = 0.4 See_Comment [Aut omated message] The Basophils) system which ge nerated this result tra nsmitted reference range : <=1.0. The reference r samantha was not used to int erpret this result as normal/abnormal . [facility] CampusRztpvvpFXPCKLGEJY1823-25-08 12:33:00 Test Item Value Reference Range Interpretation Comments Neutrophils # (test code = Neutrophils 4.4 1.5-8.1 #) [place] 155092-06-28 12:33:00 Test Item Value Reference Range Interpretation Comments Lymphocytes # (test code = Lymphocytes 0.6 1.0-5.5 #) [place] 155092-06-28 12:33:00 Test Item Value Reference Range Interpretation Comments Monocytes # (test code 0.1 See_Comment [Aut omated message] The = Monocytes #) system which generated this result tra nsmitted reference range : <=0.8. The reference r samantha was not used to int erpret this result as normal/abnormal . [facility] CampusVsasshgSKCHIRFJTW7960-33-15 12:33:00 Test Item Value Reference Range Interpretation Comments Macrocyte (test code = 1+ *ABN*(11/25/21 Macrocyte) 7:33 AM) [place] 155092-06-28 12:33:00 Test Item Value Reference Range Interpretation Comments WBC (test code = WBC) 5.2 3.7-10.4 [place] 155092-06-28 12:33:00 Test Item Value Reference Range Interpretation Comments RBC (test code = RBC) 2.18 4.70-6.10 [facility] CampusFttanvgQBDWZWVTYY7710-11-85 12:33:00 Test Item Value Reference Range Interpretation Comments Hgb (test code = Hgb) 7.8 14.0-18.0 [place] 155092-06-28 12:33:00 Test Item Value Reference Range Interpretation Comments Hct (test code = Hct) 23.6 42.0-54.0 [place] 155092-06-28 12:33:00 Test Item Value Reference Range Interpretation Comments MCV (test code = MCV) 108.4 80.0-94.0 [facility] CampusEmtttefJPPPFSLIYP7483-96-70 12:33:00 Test Item Value Reference Range Interpretation Comments MCH (test code = MCH) 35.9 pg 27.0-31.0 [place] 155092-06-28 12:33:00 Test Item Value Reference Range Interpretation Comments MCHC (test code = MCHC) 33.1 32.0-36.0 [place] 155092-06-28 12:33:00 Test Item Value Reference Range Interpretation Comments RDW (test code = RDW) 21.5 11.5-14.5 [place] 155092-06-28 12:33:00 Test Item Value Reference Range Interpretation Comments Platelet (test code = Platelet) 167 133-450 [place] 155092-06-28 12:33:00 Test Item Value Reference Range Interpretation Comments MPV (test code = MPV) 7.6 7.4-10.4 [place] 155092-06-28 12:33:00 Test Item Value Reference Range Interpretation Comments Segs (test code = Segs) 84.8 45.0-75.0 [place] 155092-06-28 12:33:00 Test Item Value Reference Range Interpretation Comments Lymphocytes (test code = Lymphocytes) 11.6 20.0-40.0 [place] 155092-06-28 12:33:00 Test Item Value Reference Range Interpretation Comments Monocytes (test code = Monocytes) 2.8 2.0-12.0 [place] 155092-06-28 12:33:00 Test Item Value Reference Range Interpretation Comments Eosinophils (test code = 0.4 See_Comment [A utomated message] The Eosinophils) system which ge nerated this result tra nsmitted reference range : <=4.0. The reference r samantha was not used to int erpret this result as normal/abnormal . [facility] CampusPokruawYBDCCNTWQZ1310-13-42 12:33:00 Test Item Value Reference Range Interpretation Comments Basophils (test code = 0.4 See_Comment [Aut omated message] The Basophils) system which ge nerated this result tra nsmitted reference range : <=1.0. The reference r samantha was not used to int erpret this result as normal/abnormal . [place] 155092-06-28 12:33:00 Test Item Value Reference Range Interpretation Comments Neutrophils # (test code = Neutrophils 4.4 1.5-8.1 #) [place] 155092-06-28 12:33:00 Test Item Value Reference Range Interpretation Comments Lymphocytes # (test code = Lymphocytes 0.6 1.0-5.5 #) [place] [address]-06-28 12:33:00 Test Item Value Reference Range Interpretation Comments Monocytes # (test code 0.1 See_Comment [Aut omated message] The = Monocytes #) system which generated this result tra nsmitted reference range : <=0.8. The reference r samantha was not used to int erpret this result as normal/abnormal . [facility] CampusRsvsuaqHRLQODSDNW1839-43-85 12:33:00 Test Item Value Reference Range Interpretation Comments Macrocyte (test code = 1+ *ABN*(11/25/21 Macrocyte) 7:33 AM) [place] 155092-06-28 12:33:00 Test Item Value Reference Range Interpretation Comments WBC (test code = WBC) 5.2 3.7-10.4 [place] 155092-06-28 12:33:00 Test Item Value Reference Range Interpretation Comments RBC (test code = RBC) 2.18 4.70-6.10 [place] 155092-06-28 12:33:00 Test Item Value Reference Range Interpretation Comments Hgb (test code = Hgb) 7.8 14.0-18.0 [place] 155092-06-28 12:33:00 Test Item Value Reference Range Interpretation Comments Hct (test code = Hct) 23.6 42.0-54.0 [place] 155092-06-28 12:33:00 Test Item Value Reference Range Interpretation Comments MCV (test code = MCV) 108.4 80.0-94.0 [place] 155092-06-28 12:33:00 Test Item Value Reference Range Interpretation Comments MCH (test code = MCH) 35.9 pg 27.0-31.0 [facility] CampusVnggilrTLKNEXVLSJ7976-09-91 12:33:00 Test Item Value Reference Range Interpretation Comments MCHC (test code = MCHC) 33.1 32.0-36.0 [place] 155092-06-28 12:33:00 Test Item Value Reference Range Interpretation Comments RDW (test code = RDW) 21.5 11.5-14.5 [facility] CampusHljphpsFQIKRFAGQL2180-41-08 12:33:00 Test Item Value Reference Range Interpretation Comments Platelet (test code = Platelet) 167 133-450 [facility] CampusJilnfxlJBZWHMDPUH3455-26-42 12:33:00 Test Item Value Reference Range Interpretation Comments MPV (test code = MPV) 7.6 7.4-10.4 [place] 155092-06-28 12:33:00 Test Item Value Reference Range Interpretation Comments Segs (test code = Segs) 84.8 45.0-75.0 [facility] CampusPlzhdrnJJKWBNPSLZ0789-92-13 12:33:00 Test Item Value Reference Range Interpretation Comments Lymphocytes (test code = Lymphocytes) 11.6 20.0-40.0 [place] 155092-06-28 12:33:00 Test Item Value Reference Range Interpretation Comments Monocytes (test code = Monocytes) 2.8 2.0-12.0 [place] 155092-06-28 12:33:00 Test Item Value Reference Range Interpretation Comments Eosinophils (test code = 0.4 See_Comment [A utomated message] The Eosinophils) system which ge nerated this result tra nsmitted reference range : <=4.0. The reference r samantha was not used to int erpret this result as normal/abnormal . [place] 155092-06-28 12:33:00 Test Item Value Reference Range Interpretation Comments Basophils (test code = 0.4 See_Comment [Aut omated message] The Basophils) system which ge nerated this result tra nsmitted reference range : <=1.0. The reference r samantha was not used to int erpret this result as normal/abnormal . [facility] CampusEiymearNNYCSSDZLJ8938-99-08 12:33:00 Test Item Value Reference Range Interpretation Comments Neutrophils # (test code = Neutrophils 4.4 1.5-8.1 #) [facility] CampusPpswwjyHNTMDTFFBZ8944-37-15 12:33:00 Test Item Value Reference Range Interpretation Comments Lymphocytes # (test code = Lymphocytes 0.6 1.0-5.5 #) [place] 155092-06-28 12:33:00 Test Item Value Reference Range Interpretation Comments Monocytes # (test code 0.1 See_Comment [Aut omated message] The = Monocytes #) system which generated this result tra nsmitted reference range : <=0.8. The reference r samantha was not used to int erpret this result as normal/abnormal . [facility] CampusQddwctyNAZGVIGLJM9387-18-74 12:33:00 Test Item Value Reference Range Interpretation Comments Macrocyte (test code = 1+ *ABN*(11/25/21 Macrocyte) 7:33 AM) [place] 155092-06-28 12:33:00 Test Item Value Reference Range Interpretation Comments WBC (test code = WBC) 5.2 3.7-10.4 [facility] CampusJhpjzqzAQZYLJJADM5384-29-78 12:33:00 Test Item Value Reference Range Interpretation Comments RBC (test code = RBC) 2.18 4.70-6.10 [facility] CampusBdupnvvSFESDVFTOO4752-57-86 12:33:00 Test Item Value Reference Range Interpretation Comments Hgb (test code = Hgb) 7.8 14.0-18.0 [place] 155092-06-28 12:33:00 Test Item Value Reference Range Interpretation Comments Hct (test code = Hct) 23.6 42.0-54.0 [facility] CampusCnlshnjCOFFXFYPLV4195-99-27 12:33:00 Test Item Value Reference Range Interpretation Comments MCV (test code = MCV) 108.4 80.0-94.0 [facility] CampusGnlbdetBNFQOQVOED2124-29-95 12:33:00 Test Item Value Reference Range Interpretation Comments MCH (test code = MCH) 35.9 pg 27.0-31.0 [facility] CampusQofkylyWHVINJOZNR2052-22-75 12:33:00 Test Item Value Reference Range Interpretation Comments MCHC (test code = MCHC) 33.1 32.0-36.0 [facility] CampusKvaudotEIYALUTFJJ5205-97-24 12:33:00 Test Item Value Reference Range Interpretation Comments RDW (test code = RDW) 21.5 11.5-14.5 [facility] CampusLjmjtuyXMQKPPTZYB8209-17-92 12:33:00 Test Item Value Reference Range Interpretation Comments Platelet (test code = Platelet) 167 133-450 [facility] CampusNywygohAQTUVEHXAV7010-80-87 12:33:00 Test Item Value Reference Range Interpretation Comments MPV (test code = MPV) 7.6 7.4-10.4 [facility] CampusPonuipmPJOSXXKOXF2565-98-13 12:33:00 Test Item Value Reference Range Interpretation Comments Segs (test code = Segs) 84.8 45.0-75.0 [facility] CampusDkxwxzuJHAHAZAIIK2449-65-08 12:33:00 Test Item Value Reference Range Interpretation Comments Lymphocytes (test code = Lymphocytes) 11.6 20.0-40.0 [facility] CampusRfjnmpxZPVGHCYETS1786-46-00 12:33:00 Test Item Value Reference Range Interpretation Comments Monocytes (test code = Monocytes) 2.8 2.0-12.0 [place] [address]-06-28 12:33:00 Test Item Value Reference Range Interpretation Comments Eosinophils (test code = 0.4 See_Comment [A utomated message] The Eosinophils) system which ge nerated this result tra nsmitted reference range : <=4.0. The reference r samantha was not used to int erpret this result as normal/abnormal . [facility] CampusCcxlrfsEJPWDNKQQW8877-08-72 12:33:00 Test Item Value Reference Range Interpretation Comments Basophils (test code = 0.4 See_Comment [Aut omated message] The Basophils) system which ge nerated this result tra nsmitted reference range : <=1.0. The reference r samantha was not used to int erpret this result as normal/abnormal . [facility] CampusXdmvmemVYWVNGUJYQ8770-42-19 12:33:00 Test Item Value Reference Range Interpretation Comments Neutrophils # (test code = Neutrophils 4.4 1.5-8.1 #) [place] 155092-06-28 12:33:00 Test Item Value Reference Range Interpretation Comments Lymphocytes # (test code = Lymphocytes 0.6 1.0-5.5 #) [place] 155092-06-28 12:33:00 Test Item Value Reference Range Interpretation Comments Monocytes # (test code 0.1 See_Comment [Aut omated message] The = Monocytes #) system which generated this result tra nsmitted reference range : <=0.8. The reference r samantha was not used to int erpret this result as normal/abnormal . [facility]NmyonstKZBUOOYBZM6178-93-99 12:33:00 Test Item Value Reference Range Interpretation Comments Macrocyte (test code = 1+ *ABN*(11/25/21 Macrocyte) 7:33 AM) [place] [address]-06-28 12:33:00 Test Item Value Reference Range Interpretation Comments WBC (test code = WBC) 5.2 3.7-10.4 [place] 155092-06-28 12:33:00 Test Item Value Reference Range Interpretation Comments RBC (test code = RBC) 2.18 4.70-6.10 [place] 155092-06-28 12:33:00 Test Item Value Reference Range Interpretation Comments Hgb (test code = Hgb) 7.8 14.0-18.0 [place] 155092-06-28 12:33:00 Test Item Value Reference Range Interpretation Comments Hct (test code = Hct) 23.6 42.0-54.0 [place] 155092-06-28 12:33:00 Test Item Value Reference Range Interpretation Comments MCV (test code = MCV) 108.4 80.0-94.0 [place] 155092-06-28 12:33:00 Test Item Value Reference Range Interpretation Comments MCH (test code = MCH) 35.9 pg 27.0-31.0 [place] 155092-06-28 12:33:00 Test Item Value Reference Range Interpretation Comments MCHC (test code = MCHC) 33.1 32.0-36.0 [place] 155092-06-28 12:33:00 Test Item Value Reference Range Interpretation Comments RDW (test code = RDW) 21.5 11.5-14.5 [place] 155092-06-28 12:33:00 Test Item Value Reference Range Interpretation Comments Platelet (test code = Platelet) 167 133-450 [place] 155092-06-28 12:33:00 Test Item Value Reference Range Interpretation Comments MPV (test code = MPV) 7.6 7.4-10.4 [place] 155092-06-28 12:33:00 Test Item Value Reference Range Interpretation Comments Segs (test code = Segs) 84.8 45.0-75.0 [place] 155092-06-28 12:33:00 Test Item Value Reference Range Interpretation Comments Lymphocytes (test code = Lymphocytes) 11.6 20.0-40.0 [place] 155092-06-28 12:33:00 Test Item Value Reference Range Interpretation Comments Monocytes (test code = Monocytes) 2.8 2.0-12.0 [place] [address]-06-28 12:33:00 Test Item Value Reference Range Interpretation Comments Eosinophils (test code = 0.4 See_Comment [A utomated message] The Eosinophils) system which ge nerated this result tra nsmitted reference range : <=4.0. The reference r samantha was not used to int erpret this result as normal/abnormal . [place] 155092-06-28 12:33:00 Test Item Value Reference Range Interpretation Comments Basophils (test code = 0.4 See_Comment [Aut omated message] The Basophils) system which ge nerated this result tra nsmitted reference range : <=1.0. The reference r samantha was not used to int erpret this result as normal/abnormal . [place] 155092-06-28 12:33:00 Test Item Value Reference Range Interpretation Comments Neutrophils # (test code = Neutrophils 4.4 1.5-8.1 #) [facility] CampusBmzswkqBZEXWUIZBQ8943-27-34 12:33:00 Test Item Value Reference Range Interpretation Comments Lymphocytes # (test code = Lymphocytes 0.6 1.0-5.5 #) [place] 155092-06-28 12:33:00 Test Item Value Reference Range Interpretation Comments Monocytes # (test code 0.1 See_Comment [Aut omated message] The = Monocytes #) system which generated this result tra nsmitted reference range : <=0.8. The reference r samantha was not used to int erpret this result as normal/abnormal . [facility] CampusLflrtzfEZOUMUEYEP8497-56-41 12:33:00 Test Item Value Reference Range Interpretation Comments Macrocyte (test code = 1+ *ABN*(11/25/21 Macrocyte) 7:33 AM) [place] 155092-06-28 12:33:00 Test Item Value Reference Range Interpretation Comments WBC (test code = WBC) 5.2 3.7-10.4 [place] 155092-06-28 12:33:00 Test Item Value Reference Range Interpretation Comments RBC (test code = RBC) 2.18 4.70-6.10 [place] 155092-06-28 12:33:00 Test Item Value Reference Range Interpretation Comments Hgb (test code = Hgb) 7.8 14.0-18.0 [place] [address]-06-28 12:33:00 Test Item Value Reference Range Interpretation Comments Hct (test code = Hct) 23.6 42.0-54.0 [place] 155092-06-28 12:33:00 Test Item Value Reference Range Interpretation Comments MCV (test code = MCV) 108.4 80.0-94.0 [place] 155092-06-28 12:33:00 Test Item Value Reference Range Interpretation Comments MCH (test code = MCH) 35.9 pg 27.0-31.0 [facility] CampusUlqqbtbMCQRDXBNIG6760-06-13 12:33:00 Test Item Value Reference Range Interpretation Comments MCHC (test code = MCHC) 33.1 32.0-36.0 [facility] CampusGtuutnpOWHIHXUGYO1992-47-96 12:33:00 Test Item Value Reference Range Interpretation Comments RDW (test code = RDW) 21.5 11.5-14.5 [place] 155092-06-28 12:33:00 Test Item Value Reference Range Interpretation Comments Platelet (test code = Platelet) 167 133-450 [place] 155092-06-28 12:33:00 Test Item Value Reference Range Interpretation Comments MPV (test code = MPV) 7.6 7.4-10.4 [place] 155092-06-28 12:33:00 Test Item Value Reference Range Interpretation Comments Segs (test code = Segs) 84.8 45.0-75.0 [place] 155092-06-28 12:33:00 Test Item Value Reference Range Interpretation Comments Lymphocytes (test code = Lymphocytes) 11.6 20.0-40.0 [place] 155092-06-28 12:33:00 Test Item Value Reference Range Interpretation Comments Monocytes (test code = Monocytes) 2.8 2.0-12.0 [facility] CampusFaveiqkCIMXXITGYZ5389-44-02 12:33:00 Test Item Value Reference Range Interpretation Comments Eosinophils (test code = 0.4 See_Comment [A utomated message] The Eosinophils) system which ge nerated this result tra nsmitted reference range : <=4.0. The reference r samantha was not used to int erpret this result as normal/abnormal . [place] 155092-06-28 12:33:00 Test Item Value Reference Range Interpretation Comments Basophils (test code = 0.4 See_Comment [Aut omated message] The Basophils) system which ge nerated this result tra nsmitted reference range : <=1.0. The reference r samantha was not used to int erpret this result as normal/abnormal . [place] 155092-06-28 12:33:00 Test Item Value Reference Range Interpretation Comments Neutrophils # (test code = Neutrophils 4.4 1.5-8.1 #) [facility] CampusDxomvywZAFTRMHDLJ7655-42-18 12:33:00 Test Item Value Reference Range Interpretation Comments Lymphocytes # (test code = Lymphocytes 0.6 1.0-5.5 #) [place] 155092-06-28 12:33:00 Test Item Value Reference Range Interpretation Comments Monocytes # (test code 0.1 See_Comment [Aut omated message] The = Monocytes #) system which generated this result tra nsmitted reference range : <=0.8. The reference r samantha was not used to int erpret this result as normal/abnormal . [facility] CampusQmuqjbsXPGLTYZFIR5256-01-65 12:33:00 Test Item Value Reference Range Interpretation Comments Macrocyte (test code = 1+ *ABN*(11/25/21 Macrocyte) 7:33 AM) [place] 155092-06-28 12:33:00 Test Item Value Reference Range Interpretation Comments WBC (test code = WBC) 5.2 3.7-10.4 [facility] CampusXytmmsqUYEFESETEH9609-70-64 12:33:00 Test Item Value Reference Range Interpretation Comments RBC (test code = RBC) 2.18 4.70-6.10 [facility] CampusDzkkbjaTARMAXYKCS1915-18-48 12:33:00 Test Item Value Reference Range Interpretation Comments Hgb (test code = Hgb) 7.8 14.0-18.0 [place] 155092-06-28 12:33:00 Test Item Value Reference Range Interpretation Comments Hct (test code = Hct) 23.6 42.0-54.0 [place] 155092-06-28 12:33:00 Test Item Value Reference Range Interpretation Comments MCV (test code = MCV) 108.4 80.0-94.0 [place] 155092-06-28 12:33:00 Test Item Value Reference Range Interpretation Comments MCH (test code = MCH) 35.9 pg 27.0-31.0 [place] 155092-06-28 12:33:00 Test Item Value Reference Range Interpretation Comments MCHC (test code = MCHC) 33.1 32.0-36.0 [place] 155092-06-28 12:33:00 Test Item Value Reference Range Interpretation Comments RDW (test code = RDW) 21.5 11.5-14.5 [place] 155092-06-28 12:33:00 Test Item Value Reference Range Interpretation Comments Platelet (test code = Platelet) 167 133-450 [place] 155092-06-28 12:33:00 Test Item Value Reference Range Interpretation Comments MPV (test code = MPV) 7.6 7.4-10.4 [place] 155092-06-28 12:33:00 Test Item Value Reference Range Interpretation Comments Segs (test code = Segs) 84.8 45.0-75.0 [place] 155092-06-28 12:33:00 Test Item Value Reference Range Interpretation Comments Lymphocytes (test code = Lymphocytes) 11.6 20.0-40.0 [place] [address]-06-28 12:33:00 Test Item Value Reference Range Interpretation Comments Monocytes (test code = Monocytes) 2.8 2.0-12.0 [place] 155092-06-28 12:33:00 Test Item Value Reference Range Interpretation Comments Eosinophils (test code = 0.4 See_Comment [A utomated message] The Eosinophils) system which ge nerated this result tra nsmitted reference range : <=4.0. The reference r samantha was not used to int erpret this result as normal/abnormal . [place] 155092-06-28 12:33:00 Test Item Value Reference Range Interpretation Comments Basophils (test code = 0.4 See_Comment [Aut omated message] The Basophils) system which ge nerated this result tra nsmitted reference range : <=1.0. The reference r samantha was not used to int erpret this result as normal/abnormal . [facility] CampusJeimvahKQMIDZWPBT8851-75-14 12:33:00 Test Item Value Reference Range Interpretation Comments Neutrophils # (test code = Neutrophils 4.4 1.5-8.1 #) [place] 155092-06-28 12:33:00 Test Item Value Reference Range Interpretation Comments Lymphocytes # (test code = Lymphocytes 0.6 1.0-5.5 #) [place] 155092-06-28 12:33:00 Test Item Value Reference Range Interpretation Comments Monocytes # (test code 0.1 See_Comment [Aut omated message] The = Monocytes #) system which generated this result tra nsmitted reference range : <=0.8. The reference r samantha was not used to int erpret this result as normal/abnormal . [facility] CampusIsymezoWJOAZRMZYP7694-98-56 12:33:00 Test Item Value Reference Range Interpretation Comments Macrocyte (test code = 1+ *ABN*(11/25/21 Macrocyte) 7:33 AM) [facility] CampusSswckemSTRGZNPADZ5029-60-34 12:33:00 Test Item Value Reference Range Interpretation Comments WBC (test code = WBC) 5.2 3.7-10.4 [place] 155092-06-28 12:33:00 Test Item Value Reference Range Interpretation Comments RBC (test code = RBC) 2.18 4.70-6.10 [place] 155092-06-28 12:33:00 Test Item Value Reference Range Interpretation Comments Hgb (test code = Hgb) 7.8 14.0-18.0 [facility] CampusKydwshtXUJAYSEGHZ9905-86-69 12:33:00 Test Item Value Reference Range Interpretation Comments Hct (test code = Hct) 23.6 42.0-54.0 [facility] CampusEgsuwxvANUXHOEEIU6719-75-04 12:33:00 Test Item Value Reference Range Interpretation Comments MCV (test code = MCV) 108.4 80.0-94.0 [place] 155092-06-28 12:33:00 Test Item Value Reference Range Interpretation Comments MCH (test code = MCH) 35.9 pg 27.0-31.0 [facility] CampusOzaqekfQFFJCWQJVJ5454-87-39 12:33:00 Test Item Value Reference Range Interpretation Comments MCHC (test code = MCHC) 33.1 32.0-36.0 [facility] CampusRqoduioQWUFCHUHHL8841-50-28 12:33:00 Test Item Value Reference Range Interpretation Comments RDW (test code = RDW) 21.5 11.5-14.5 [place] 155092-06-28 12:33:00 Test Item Value Reference Range Interpretation Comments Platelet (test code = Platelet) 167 133-450 [facility] CampusAbfxmkoOTNQNAAUQO7425-40-16 12:33:00 Test Item Value Reference Range Interpretation Comments MPV (test code = MPV) 7.6 7.4-10.4 [place] 155092-06-28 12:33:00 Test Item Value Reference Range Interpretation Comments Segs (test code = Segs) 84.8 45.0-75.0 [place] 155092-06-28 12:33:00 Test Item Value Reference Range Interpretation Comments Lymphocytes (test code = Lymphocytes) 11.6 20.0-40.0 [place] 155092-06-28 12:33:00 Test Item Value Reference Range Interpretation Comments Monocytes (test code = Monocytes) 2.8 2.0-12.0 [place] 155092-06-28 12:33:00 Test Item Value Reference Range Interpretation Comments Eosinophils (test code = 0.4 See_Comment [A utomated message] The Eosinophils) system which ge nerated this result tra nsmitted reference range : <=4.0. The reference r samantha was not used to int erpret this result as normal/abnormal . [place] 155092-06-28 12:33:00 Test Item Value Reference Range Interpretation Comments Basophils (test code = 0.4 See_Comment [Aut omated message] The Basophils) system which ge nerated this result tra nsmitted reference range : <=1.0. The reference r samantha was not used to int erpret this result as normal/abnormal . [facility] CampusTknjaunOXHTBAETQV8954-25-23 12:33:00 Test Item Value Reference Range Interpretation Comments Neutrophils # (test code = Neutrophils 4.4 1.5-8.1 #) [place] 155092-06-28 12:33:00 Test Item Value Reference Range Interpretation Comments Lymphocytes # (test code = Lymphocytes 0.6 1.0-5.5 #) [place] 155092-06-28 12:33:00 Test Item Value Reference Range Interpretation Comments Monocytes # (test code 0.1 See_Comment [Aut omated message] The = Monocytes #) system which generated this result tra nsmitted reference range : <=0.8. The reference r samantha was not used to int erpret this result as normal/abnormal . [place] 155092-06-28 12:33:00 Test Item Value Reference Range Interpretation Comments Macrocyte (test code = 1+ *ABN*(11/25/21 Macrocyte) 7:33 AM) [place] 155092-06-28 12:33:00 Test Item Value Reference Range Interpretation Comments WBC (test code = WBC) 5.2 3.7-10.4 [facility] CampusNfhohaeDTAYXPNSZJ1673-55-20 12:33:00 Test Item Value Reference Range Interpretation Comments RBC (test code = RBC) 2.18 4.70-6.10 [facility] CampusKvwnbfwAVTVXXGPUS8706-60-80 12:33:00 Test Item Value Reference Range Interpretation Comments Hgb (test code = Hgb) 7.8 14.0-18.0 [place] 155092-06-28 12:33:00 Test Item Value Reference Range Interpretation Comments Hct (test code = Hct) 23.6 42.0-54.0 [facility] CampusYdmrvibYXYVJNXADU4735-96-69 12:33:00 Test Item Value Reference Range Interpretation Comments MCV (test code = MCV) 108.4 80.0-94.0 [place] 155092-06-28 12:33:00 Test Item Value Reference Range Interpretation Comments MCH (test code = MCH) 35.9 pg 27.0-31.0 [place] 155092-06-28 12:33:00 Test Item Value Reference Range Interpretation Comments MCHC (test code = MCHC) 33.1 32.0-36.0 [facility] CampusLzhypfoQLIIPHANVB0119-59-01 12:33:00 Test Item Value Reference Range Interpretation Comments RDW (test code = RDW) 21.5 11.5-14.5 [facility] CampusOikaldyHINIWKXWZN5109-75-34 12:33:00 Test Item Value Reference Range Interpretation Comments Platelet (test code = Platelet) 167 133-450 [facility] CampusQfrfxhpUKGBQTFPPQ9192-93-98 12:33:00 Test Item Value Reference Range Interpretation Comments MPV (test code = MPV) 7.6 7.4-10.4 [place] 155092-06-28 12:33:00 Test Item Value Reference Range Interpretation Comments Segs (test code = Segs) 84.8 45.0-75.0 [place] 155092-06-28 12:33:00 Test Item Value Reference Range Interpretation Comments Lymphocytes (test code = Lymphocytes) 11.6 20.0-40.0 [place] 155092-06-28 12:33:00 Test Item Value Reference Range Interpretation Comments Monocytes (test code = Monocytes) 2.8 2.0-12.0 [facility] CampusKapcwmqSTRTUMNPTS4175-44-67 12:33:00 Test Item Value Reference Range Interpretation Comments Eosinophils (test code = 0.4 See_Comment [A utomated message] The Eosinophils) system which ge nerated this result tra nsmitted reference range : <=4.0. The reference r samantha was not used to int erpret this result as normal/abnormal . [facility] CampusCxdnrphYVHIZDONRF6218-28-88 12:33:00 Test Item Value Reference Range Interpretation Comments Basophils (test code = 0.4 See_Comment [Aut omated message] The Basophils) system which ge nerated this result tra nsmitted reference range : <=1.0. The reference r samantha was not used to int erpret this result as normal/abnormal . [facility] CampusMvlwjomSOCGHNNKSW5258-56-97 12:33:00 Test Item Value Reference Range Interpretation Comments Neutrophils # (test code = Neutrophils 4.4 1.5-8.1 #) [facility] CampusVftacgtBCKUJFNVZE8107-34-49 12:33:00 Test Item Value Reference Range Interpretation Comments Lymphocytes # (test code = Lymphocytes 0.6 1.0-5.5 #) [place] 155092-06-28 12:33:00 Test Item Value Reference Range Interpretation Comments Monocytes # (test code 0.1 See_Comment [Aut omated message] The = Monocytes #) system which generated this result tra nsmitted reference range : <=0.8. The reference r samantha was not used to int erpret this result as normal/abnormal . [facility] CampusVykwcdlDDHQOPMTNC6907-23-53 12:33:00 Test Item Value Reference Range Interpretation Comments Macrocyte (test code = 1+ *ABN*(11/25/21 Macrocyte) 7:33 AM) [place] 155092-06-28 12:33:00 Test Item Value Reference Range Interpretation Comments WBC (test code = WBC) 5.2 3.7-10.4 [place] 155092-06-28 12:33:00 Test Item Value Reference Range Interpretation Comments RBC (test code = RBC) 2.18 4.70-6.10 [facility] CampusCfdswczYHUXZDBDKA9533-20-01 12:33:00 Test Item Value Reference Range Interpretation Comments Hgb (test code = Hgb) 7.8 14.0-18.0 [place] 155092-06-28 12:33:00 Test Item Value Reference Range Interpretation Comments Hct (test code = Hct) 23.6 42.0-54.0 [place] 155092-06-28 12:33:00 Test Item Value Reference Range Interpretation Comments MCV (test code = MCV) 108.4 80.0-94.0 [place] [address]-06-28 12:33:00 Test Item Value Reference Range Interpretation Comments MCH (test code = MCH) 35.9 pg 27.0-31.0 [place] 155092-06-28 12:33:00 Test Item Value Reference Range Interpretation Comments MCHC (test code = MCHC) 33.1 32.0-36.0 [place] 155092-06-28 12:33:00 Test Item Value Reference Range Interpretation Comments RDW (test code = RDW) 21.5 11.5-14.5 [place] 155092-06-28 12:33:00 Test Item Value Reference Range Interpretation Comments Platelet (test code = Platelet) 167 133-450 [facility] CampusNwehzplTTSNCCGKCG0609-86-61 12:33:00 Test Item Value Reference Range Interpretation Comments MPV (test code = MPV) 7.6 7.4-10.4 [place] 155092-06-28 12:33:00 Test Item Value Reference Range Interpretation Comments Segs (test code = Segs) 84.8 45.0-75.0 [place] 155092-06-28 12:33:00 Test Item Value Reference Range Interpretation Comments Lymphocytes (test code = Lymphocytes) 11.6 20.0-40.0 [place] 155092-06-28 12:33:00 Test Item Value Reference Range Interpretation Comments Monocytes (test code = Monocytes) 2.8 2.0-12.0 [place] [address]-06-28 12:33:00 Test Item Value Reference Range Interpretation Comments Eosinophils (test code = 0.4 See_Comment [A utomated message] The Eosinophils) system which ge nerated this result tra nsmitted reference range : <=4.0. The reference r samantha was not used to int erpret this result as normal/abnormal . [place] 155092-06-28 12:33:00 Test Item Value Reference Range Interpretation Comments Basophils (test code = 0.4 See_Comment [Aut omated message] The Basophils) system which ge nerated this result tra nsmitted reference range : <=1.0. The reference r samantha was not used to int erpret this result as normal/abnormal . [place] 155092-06-28 12:33:00 Test Item Value Reference Range Interpretation Comments Neutrophils # (test code = Neutrophils 4.4 1.5-8.1 #) [facility] CampusNrxwrvcHVTRWHUORJ0858-02-92 12:33:00 Test Item Value Reference Range Interpretation Comments Lymphocytes # (test code = Lymphocytes 0.6 1.0-5.5 #) [place] 155092-06-28 12:33:00 Test Item Value Reference Range Interpretation Comments Monocytes # (test code 0.1 See_Comment [Aut omated message] The = Monocytes #) system which generated this result tra nsmitted reference range : <=0.8. The reference r samantha was not used to int erpret this result as normal/abnormal . [facility] CampusYmwxupyDMTHTEXPMP3240-47-38 12:33:00 Test Item Value Reference Range Interpretation Comments Macrocyte (test code = 1+ *ABN*(11/25/21 Macrocyte) 7:33 AM) [place] 155092-06-28 12:33:00 Test Item Value Reference Range Interpretation Comments WBC (test code = WBC) 5.2 3.7-10.4 [place] 155092-06-28 12:33:00 Test Item Value Reference Range Interpretation Comments RBC (test code = RBC) 2.18 4.70-6.10 [place] 155092-06-28 12:33:00 Test Item Value Reference Range Interpretation Comments Hgb (test code = Hgb) 7.8 14.0-18.0 [place] [address]-06-28 12:33:00 Test Item Value Reference Range Interpretation Comments Hct (test code = Hct) 23.6 42.0-54.0 [place] 155092-06-28 12:33:00 Test Item Value Reference Range Interpretation Comments MCV (test code = MCV) 108.4 80.0-94.0 [place] 155092-06-28 12:33:00 Test Item Value Reference Range Interpretation Comments MCH (test code = MCH) 35.9 pg 27.0-31.0 [place] 155092-06-28 12:33:00 Test Item Value Reference Range Interpretation Comments MCHC (test code = MCHC) 33.1 32.0-36.0 [place] 155092-06-28 12:33:00 Test Item Value Reference Range Interpretation Comments RDW (test code = RDW) 21.5 11.5-14.5 [place] 155092-06-28 12:33:00 Test Item Value Reference Range Interpretation Comments Platelet (test code = Platelet) 167 133-450 [place] 155092-06-28 12:33:00 Test Item Value Reference Range Interpretation Comments MPV (test code = MPV) 7.6 7.4-10.4 [place] 155092-06-28 12:33:00 Test Item Value Reference Range Interpretation Comments Segs (test code = Segs) 84.8 45.0-75.0 [place] 155092-06-28 12:33:00 Test Item Value Reference Range Interpretation Comments Lymphocytes (test code = Lymphocytes) 11.6 20.0-40.0 [place] 155092-06-28 12:33:00 Test Item Value Reference Range Interpretation Comments Monocytes (test code = Monocytes) 2.8 2.0-12.0 [facility] CampusXoshejhQCEQIHYHCC2111-57-16 12:33:00 Test Item Value Reference Range Interpretation Comments Eosinophils (test code = 0.4 See_Comment [A utomated message] The Eosinophils) system which ge nerated this result tra nsmitted reference range : <=4.0. The reference r samantha was not used to int erpret this result as normal/abnormal . [place] 155092-06-28 12:33:00 Test Item Value Reference Range Interpretation Comments Basophils (test code = 0.4 See_Comment [Aut omated message] The Basophils) system which ge nerated this result tra nsmitted reference range : <=1.0. The reference r samantha was not used to int erpret this result as normal/abnormal . [place] 155092-06-28 12:33:00 Test Item Value Reference Range Interpretation Comments Neutrophils # (test code = Neutrophils 4.4 1.5-8.1 #) [facility] CampusMftpwgqIGQJAANEAN9976-90-18 12:33:00 Test Item Value Reference Range Interpretation Comments Lymphocytes # (test code = Lymphocytes 0.6 1.0-5.5 #) [place] 155092-06-28 12:33:00 Test Item Value Reference Range Interpretation Comments Monocytes # (test code 0.1 See_Comment [Aut omated message] The = Monocytes #) system which generated this result tra nsmitted reference range : <=0.8. The reference r samantha was not used to int erpret this result as normal/abnormal . [place] 155092-06-28 12:33:00 Test Item Value Reference Range Interpretation Comments Macrocyte (test code = 1+ *ABN*(11/25/21 Macrocyte) 7:33 AM) [place] 155092-06-28 12:33:00 Test Item Value Reference Range Interpretation Comments WBC (test code = WBC) 5.2 3.7-10.4 [place] 155092-06-28 12:33:00 Test Item Value Reference Range Interpretation Comments RBC (test code = RBC) 2.18 4.70-6.10 [place] 155092-06-28 12:33:00 Test Item Value Reference Range Interpretation Comments Hgb (test code = Hgb) 7.8 14.0-18.0 [place] 155092-06-28 12:33:00 Test Item Value Reference Range Interpretation Comments Hct (test code = Hct) 23.6 42.0-54.0 [place] 155092-06-28 12:33:00 Test Item Value Reference Range Interpretation Comments MCV (test code = MCV) 108.4 80.0-94.0 [place] 155092-06-28 12:33:00 Test Item Value Reference Range Interpretation Comments MCH (test code = MCH) 35.9 pg 27.0-31.0 [place] 155092-06-28 12:33:00 Test Item Value Reference Range Interpretation Comments MCHC (test code = MCHC) 33.1 32.0-36.0 [place] 155092-06-28 12:33:00 Test Item Value Reference Range Interpretation Comments RDW (test code = RDW) 21.5 11.5-14.5 [place] 155092-06-28 12:33:00 Test Item Value Reference Range Interpretation Comments Platelet (test code = Platelet) 167 133-450 [place] 155092-06-28 12:33:00 Test Item Value Reference Range Interpretation Comments MPV (test code = MPV) 7.6 7.4-10.4 [facility]2022-06-28 11:17:00 Test Item Value Reference Range Interpretation Comments Vitamin B12 Lvl (test code = Vitamin 1508 B12 Lvl) [facility]2022-06-28 11:17:00 Test Item Value Reference Range Interpretation Comments Folate Lvl (test code = Folate Lvl) 22.3 [facility]2022-06-28 11:17:00 Test Item Value Reference Range Interpretation Comments Ferritin Lvl (test code = Ferritin Lvl) 1423 22275 [place] 506282-06-28 11:17:00 Test Item Value Reference Range Interpretation Comments Glucose Lvl (test code = Glucose Lvl) 205 70-99 [place] 506282-06-28 11:17:00 Test Item Value Reference Range Interpretation Comments BUN (test code = BUN) 60 7-22 [place] 506282-06-28 11:17:00 Test Item Value Reference Range Interpretation Comments Creatinine Lvl (test code = Creatinine 8.46 0.50-1.40 Lvl) [place] 506282-06-28 11:17:00 Test Item Value Reference Range Interpretation Comments Sodium Lvl (test code = Sodium Lvl) 131 135-145 [place] 506282-06-28 11:17:00 Test Item Value Reference Range Interpretation Comments Potassium Lvl (test code = Potassium 5.2 3.5-5.1 Lvl) [place] 506282-06-28 11:17:00 Test Item Value Reference Range Interpretation Comments Chloride Lvl (test code = Chloride Lvl) 93 95-109 [place] 506282-06-28 11:17:00 Test Item Value Reference Range Interpretation Comments CO2 (test code = CO2) 29 24-32 [place] 506282-06-28 11:17:00 Test Item Value Reference Range Interpretation Comments Calcium Lvl (test code = Calcium Lvl) 8.7 8.5-10.5 [facility]2022-06-28 11:17:00 Test Item Value Reference Range Interpretation Comments Total Protein (test code = Total 6.0 6.4-8.4 Protein) [facility]2022-06-28 11:17:00 Test Item Value Reference Range Interpretation Comments Albumin Lvl (test code = Albumin Lvl) 2.6 3.5-5.0 [facility]2022-06-28 11:17:00 Test Item Value Reference Range Interpretation Comments ALT (test code = ALT) 43 See_Comment [Auto mated message] The system which ge nerated this result transmit swathi reference range : <=65. The reference range was not used to interpr et this result as deny l/abnormal. [facility]2022-06-28 11:17:00 Test Item Value Reference Range Interpretation Comments AST (test code = AST) 35 See_Comment [Auto mated message] The system which ge nerated this result transmit swathi reference range : <=37. The reference range was not used to interpr et this result as deny l/abnormal. [facility]2022-06-28 11:17:00 Test Item Value Reference Range Interpretation Comments Alk Phos (test code = Alk Phos) 385 39-136 [facility]2022-06-28 11:17:00 Test Item Value Reference Range Interpretation Comments Bili Total (test code = Bili Total) 1.2 0.2-1.3 [place] 506282-06-28 11:17:00 Test Item Value Reference Range Interpretation Comments AGAP (test code = AGAP) 14.2 10.0-20.0 [place] 506282-06-28 11:17:00 Test Item Value Reference Range Interpretation Comments B/C Ratio (test code = B/C Ratio) 7 1 6-25 [place] 506282-06-28 11:17:00 Test Item Value Reference Range Interpretation Comments Globulin (test code = Globulin) 3.4 2.7-4.2 [facility] [id number] 11:17:00 Test Item Value Reference Range Interpretation Comments A/G Ratio (test code = A/G Ratio) 0.8 1 0.7-1.6 [facility]2022-06-28 11:17:00 Test Item Value Reference Range Interpretation Comments eGFR (test code = eGFR) 6 [facility]2022-06-28 11:17:00 Test Item Value Reference Range Interpretation Comments Magnesium Lvl (test code = Magnesium 1.9 1.8-2.4 Lvl) [facility]2022-06-28 11:17:00 Test Item Value Reference Range Interpretation Comments LDH (test code = LDH) 297 98-192 [facility]2022-06-28 11:17:00 Test Item Value Reference Range Interpretation Comments Procalcitonin Lvl (test 0.63 See_Comment [Au tomated message] code = Procalcitonin Lvl) e system which generated this result transmitted ref erence range: <=0.10. The reference range was not used to interpr et this result as normal/abnormal . [facility]BLG6758[facility]27-43 11:17:00 Test Item Value Reference Range Interpretation Comments D-Dimer (test code = D-Dimer) 5.33 [facility] 11:17:00 Test Item Value Reference Range Interpretation Comments Hep Bs Ag (test code Negative *NA*(11/25/21 = Hep Bs Ag) 6:17 AM) [place] 498432-06-28 11:17:00 Test Item Value Reference Range Interpretation Comments C-REACTIVE PROTEIN (test code = 134.0 C-REACTIVE PROTEIN) [place] 498432-06-28 11:17:00 Test Item Value Reference Range Interpretation Comments Interleukin 6 (test code = Interleukin 25.99 6) [facility]2022-06-28 11:17:00 Test Item Value Reference Range Interpretation Comments Vitamin B12 Lvl (test code = Vitamin 1508 B12 Lvl) [facility]2022-06-28 11:17:00 Test Item Value Reference Range Interpretation Comments Folate Lvl (test code = Folate Lvl) 22.3 [facility]2022-06-28 11:17:00 Test Item Value Reference Range Interpretation Comments Ferritin Lvl (test code = Ferritin Lvl) 1424 22-375 [facility]2022-06-28 11:17:00 Test Item Value Reference Range Interpretation Comments Glucose Lvl (test code = Glucose Lvl) 205 70-99 [facility]2022-06-28 11:17:00 Test Item Value Reference Range Interpretation Comments BUN (test code = BUN) 60 7-22 [place] 506282-06-28 11:17:00 Test Item Value Reference Range Interpretation Comments Creatinine Lvl (test code = Creatinine 8.46 0.50-1.40 Lvl) [place] 506282-06-28 11:17:00 Test Item Value Reference Range Interpretation Comments Sodium Lvl (test code = Sodium Lvl) 131 135-145 [place] 506282-06-28 11:17:00 Test Item Value Reference Range Interpretation Comments Potassium Lvl (test code = Potassium 5.2 3.5-5.1 Lvl) [place] 506282-06-28 11:17:00 Test Item Value Reference Range Interpretation Comments Chloride Lvl (test code = Chloride Lvl) 93 95-109 [place] 506282-06-28 11:17:00 Test Item Value Reference Range Interpretation Comments CO2 (test code = CO2) 29 24-32 [place] 506282-06-28 11:17:00 Test Item Value Reference Range Interpretation Comments Calcium Lvl (test code = Calcium Lvl) 8.7 8.5-10.5 [place] 506282-06-28 11:17:00 Test Item Value Reference Range Interpretation Comments Total Protein (test code = Total 6.0 6.4-8.4 Protein) [place] 506282-06-28 11:17:00 Test Item Value Reference Range Interpretation Comments Albumin Lvl (test code = Albumin Lvl) 2.6 3.5-5.0 [place] 506282-06-28 11:17:00 Test Item Value Reference Range Interpretation Comments ALT (test code = ALT) 43 See_Comment [Auto mated message] The system which ge nerated this result transmit swathi reference range : <=65. The reference range was not used to interpr et this result as deny l/abnormal. [place] 506282-06-28 11:17:00 Test Item Value Reference Range Interpretation Comments AST (test code = AST) 35 See_Comment [Auto mated message] The system which ge nerated this result transmit swathi reference range : <=37. The reference range was not used to interpr et this result as deny l/abnormal. [facility]2022-06-28 11:17:00 Test Item Value Reference Range Interpretation Comments Alk Phos (test code = Alk Phos) 385 39-136 [facility]2022-06-28 11:17:00 Test Item Value Reference Range Interpretation Comments Bili Total (test code = Bili Total) 1.2 0.2-1.3 [place] 506282-06-28 11:17:00 Test Item Value Reference Range Interpretation Comments AGAP (test code = AGAP) 14.2 10.0-20.0 [place] 506282-06-28 11:17:00 Test Item Value Reference Range Interpretation Comments B/C Ratio (test code = B/C Ratio) 7 1 6-25 [facility]2022-06-28 11:17:00 Test Item Value Reference Range Interpretation Comments Globulin (test code = Globulin) 3.4 2.7-4.2 [facility]2022-06-28 11:17:00 Test Item Value Reference Range Interpretation Comments A/G Ratio (test code = A/G Ratio) 0.8 1 0.7-1.6 [facility]2022-06-28 11:17:00 Test Item Value Reference Range Interpretation Comments eGFR (test code = eGFR) 6 [facility]2022-06-28 11:17:00 Test Item Value Reference Range Interpretation Comments Magnesium Lvl (test code = Magnesium 1.9 1.8-2.4 Lvl) [facility]2022-06-28 11:17:00 Test Item Value Reference Range Interpretation Comments LDH (test code = LDH) 297 98-192 [facility]2022-06-28 11:17:00 Test Item Value Reference Range Interpretation Comments Procalcitonin Lvl (test 0.63 See_Comment [Au tomated message] code = Procalcitonin Lvl) Th e system which generated this result transmitted ref erence range: <=0.10. The reference range was not used to interpr et this result as normal/abnormal . [facility] CampusUfmpbveDTNEVYZFYE2190-26-61 11:17:00 Test Item Value Reference Range Interpretation Comments D-Dimer (test code = D-Dimer) 5.33 [place] 498432-06-28 11:17:00 Test Item Value Reference Range Interpretation Comments Hep Bs Ag (test code Negative *NA*(11/25/21 = Hep Bs Ag) 6:17 AM) [place] 498432-06-28 11:17:00 Test Item Value Reference Range Interpretation Comments C-REACTIVE PROTEIN (test code = 134.0 C-REACTIVE PROTEIN) [place] 498432-06-28 11:17:00 Test Item Value Reference Range Interpretation Comments Interleukin 6 (test code = Interleukin 25.99 6) [facility]2022-06-28 11:17:00 Test Item Value Reference Range Interpretation Comments Vitamin B12 Lvl (test code = Vitamin 1508 B12 Lvl) [facility]2022-06-28 11:17:00 Test Item Value Reference Range Interpretation Comments Folate Lvl (test code = Folate Lvl) 22.3 [facility]2022-06-28 11:17:00 Test Item Value Reference Range Interpretation Comments Ferritin Lvl (test code = Ferritin Lvl) 1423 22-275 [facility]2022-06-28 11:17:00 Test Item Value Reference Range Interpretation Comments Glucose Lvl (test code = Glucose Lvl) 205 70-99 [place] 506282-06-28 11:17:00 Test Item Value Reference Range Interpretation Comments BUN (test code = BUN) 60 7-22 [place] 506282-06-28 11:17:00 Test Item Value Reference Range Interpretation Comments Creatinine Lvl (test code = Creatinine 8.46 0.50-1.40 Lvl) [place] 506282-06-28 11:17:00 Test Item Value Reference Range Interpretation Comments Sodium Lvl (test code = Sodium Lvl) 131 135-145 [place] 506282-06-28 11:17:00 Test Item Value Reference Range Interpretation Comments Potassium Lvl (test code = Potassium 5.2 3.5-5.1 Lvl) [place] 506282-06-28 11:17:00 Test Item Value Reference Range Interpretation Comments Chloride Lvl (test code = Chloride Lvl) 93 95-109 [place] 506282-06-28 11:17:00 Test Item Value Reference Range Interpretation Comments CO2 (test code = CO2) 29 24-32 [place] 506282-06-28 11:17:00 Test Item Value Reference Range Interpretation Comments Calcium Lvl (test code = Calcium Lvl) 8.7 8.5-10.5 [place] 506282-06-28 11:17:00 Test Item Value Reference Range Interpretation Comments Total Protein (test code = Total 6.0 6.4-8.4 Protein) [place] 506282-06-28 11:17:00 Test Item Value Reference Range Interpretation Comments Albumin Lvl (test code = Albumin Lvl) 2.6 3.5-5.0 [place] 506282-06-28 11:17:00 Test Item Value Reference Range Interpretation Comments ALT (test code = ALT) 43 See_Comment [Auto mated message] The system which ge nerated this result transmit swathi reference range : <=65. The reference range was not used to interpr et this result as deny l/abnormal. [facility]2022-06-28 11:17:00 Test Item Value Reference Range Interpretation Comments AST (test code = AST) 35 See_Comment [Auto mated message] The system which ge nerated this result transmit swathi reference range : <=37. The reference range was not used to interpr et this result as deny l/abnormal. [facility]2022-06-28 11:17:00 Test Item Value Reference Range Interpretation Comments Alk Phos (test code = Alk Phos) 385 39-136 [facility]2022-06-28 11:17:00 Test Item Value Reference Range Interpretation Comments Bili Total (test code = Bili Total) 1.2 0.2-1.3 [place] 506282-06-28 11:17:00 Test Item Value Reference Range Interpretation Comments AGAP (test code = AGAP) 14.2 10.0-20.0 [place] 506282-06-28 11:17:00 Test Item Value Reference Range Interpretation Comments B/C Ratio (test code = B/C Ratio) 7 1 6-25 [place] 506282-06-28 11:17:00 Test Item Value Reference Range Interpretation Comments Globulin (test code = Globulin) 3.4 2.7-4.2 [facility]2022-06-28 11:17:00 Test Item Value Reference Range Interpretation Comments A/G Ratio (test code = A/G Ratio) 0.8 1 0.7-1.6 [facility]2022-06-28 11:17:00 Test Item Value Reference Range Interpretation Comments eGFR (test code = eGFR) 6 [facility]2022-06-28 11:17:00 Test Item Value Reference Range Interpretation Comments Magnesium Lvl (test code = Magnesium 1.9 1.8-2.4 Lvl) [facility]2022-06-28 11:17:00 Test Item Value Reference Range Interpretation Comments LDH (test code = LDH) 297 98-192 [facility]2022-06-28 11:17:00 Test Item Value Reference Range Interpretation Comments Procalcitonin Lvl (test 0.63 See_Comment [Au tomated message] code = Procalcitonin Lvl) e system which generated this result transmitted ref erence range: <=0.10. The reference range was not used to interpr et this result as normal/abnormal . [facility] CampusXwznfldKGPAFVNWZH2946-25-00 11:17:00 Test Item Value Reference Range Interpretation Comments D-Dimer (test code = D-Dimer) 5.33 [facility] CenterTtfscomLHFLBNWADF9735-20-26 11:17:00 Test Item Value Reference Range Interpretation Comments Hep Bs Ag (test code Negative *NA*(11/25/21 = Hep Bs Ag) 6:17 AM) [facility] CenterEcskrjrQDUNDSJAFC8419-63-33 11:17:00 Test Item Value Reference Range Interpretation Comments C-REACTIVE PROTEIN (test code = 134.0 C-REACTIVE PROTEIN) [place] 498432-06-28 11:17:00 Test Item Value Reference Range Interpretation Comments Interleukin 6 (test code = Interleukin 25.99 6) [facility]2022-06-28 11:17:00 Test Item Value Reference Range Interpretation Comments Vitamin B12 Lvl (test code = Vitamin 1508 B12 Lvl) [facility]2022-06-28 11:17:00 Test Item Value Reference Range Interpretation Comments Folate Lvl (test code = Folate Lvl) 22.3 [facility]2022-06-28 11:17:00 Test Item Value Reference Range Interpretation Comments Ferritin Lvl (test code = Ferritin Lvl) 1423 12-175 [facility]2022-06-28 11:17:00 Test Item Value Reference Range Interpretation Comments Glucose Lvl (test code = Glucose Lvl) 205 70-99 [place] 506282-06-28 11:17:00 Test Item Value Reference Range Interpretation Comments BUN (test code = BUN) 60 7-22 [facility]2022-06-28 11:17:00 Test Item Value Reference Range Interpretation Comments Creatinine Lvl (test code = Creatinine 8.46 0.50-1.40 Lvl) [facility]2022-06-28 11:17:00 Test Item Value Reference Range Interpretation Comments Sodium Lvl (test code = Sodium Lvl) 131 135-145 [place] 506282-06-28 11:17:00 Test Item Value Reference Range Interpretation Comments Potassium Lvl (test code = Potassium 5.2 3.5-5.1 Lvl) [facility]2022-06-28 11:17:00 Test Item Value Reference Range Interpretation Comments Chloride Lvl (test code = Chloride Lvl) 93 95-109 [facility]2022-06-28 11:17:00 Test Item Value Reference Range Interpretation Comments CO2 (test code = CO2) 29 24-32 [facility]2022-06-28 11:17:00 Test Item Value Reference Range Interpretation Comments Calcium Lvl (test code = Calcium Lvl) 8.7 8.5-10.5 [facility]2022-06-28 11:17:00 Test Item Value Reference Range Interpretation Comments Total Protein (test code = Total 6.0 6.4-8.4 Protein) [facility]2022-06-28 11:17:00 Test Item Value Reference Range Interpretation Comments Albumin Lvl (test code = Albumin Lvl) 2.6 3.5-5.0 [facility]2022-06-28 11:17:00 Test Item Value Reference Range Interpretation Comments ALT (test code = ALT) 43 See_Comment [Auto mated message] The system which ge nerated this result transmit swathi reference range : <=65. The reference range was not used to interpr et this result as deny l/abnormal. [facility] CenterDispatch [id number] 11:17:00 Test Item Value Reference Range Interpretation Comments AST (test code = AST) 35 See_Comment [Auto mated message] The system which ge nerated this result transmit swathi reference range : <=37. The reference range was not used to interpr et this result as deny l/abnormal. [place] 506282-06-28 11:17:00 Test Item Value Reference Range Interpretation Comments Alk Phos (test code = Alk Phos) 385 39-136 [facility] CenterDispatch [id number] 11:17:00 Test Item Value Reference Range Interpretation Comments Bili Total (test code = Bili Total) 1.2 0.2-1.3 [place] 506282-06-28 11:17:00 Test Item Value Reference Range Interpretation Comments AGAP (test code = AGAP) 14.2 10.0-20.0 [place] 506282-06-28 11:17:00 Test Item Value Reference Range Interpretation Comments B/C Ratio (test code = B/C Ratio) 7 1 6-25 [place] 506282-06-28 11:17:00 Test Item Value Reference Range Interpretation Comments Globulin (test code = Globulin) 3.4 2.7-4.2 [place] 506282-06-28 11:17:00 Test Item Value Reference Range Interpretation Comments A/G Ratio (test code = A/G Ratio) 0.8 1 0.7-1.6 [place] 506282-06-28 11:17:00 Test Item Value Reference Range Interpretation Comments eGFR (test code = eGFR) 6 [place] 506282-06-28 11:17:00 Test Item Value Reference Range Interpretation Comments Magnesium Lvl (test code = Magnesium 1.9 1.8-2.4 Lvl) [place] 506282-06-28 11:17:00 Test Item Value Reference Range Interpretation Comments LDH (test code = LDH) 297 98-192 [place] 506282-06-28 11:17:00 Test Item Value Reference Range Interpretation Comments Procalcitonin Lvl (test 0.63 See_Comment [Au tomated message] code = Procalcitonin Lvl) Th e system which generated this result transmitted ref erence range: <=0.10. The reference range was not used to interpr et this result as normal/abnormal . [facility] CampusUrndzjbFKJPLOJEUZ6516-96-49 11:17:00 Test Item Value Reference Range Interpretation Comments D-Dimer (test code = D-Dimer) 5.33 [facility] CenterDqkhrroIMFWTXMMEG4959-37-25 11:17:00 Test Item Value Reference Range Interpretation Comments Hep Bs Ag (test code Negative *NA*(11/25/21 = Hep Bs Ag) 6:17 AM) [facility] CenterRlfchfxQUJEMIGWJS5854-61-73 11:17:00 Test Item Value Reference Range Interpretation Comments C-REACTIVE PROTEIN (test code = 134.0 C-REACTIVE PROTEIN) [place] 498432-06-28 11:17:00 Test Item Value Reference Range Interpretation Comments Interleukin 6 (test code = Interleukin 25.99 6) [facility]2022-06-28 11:17:00 Test Item Value Reference Range Interpretation Comments Vitamin B12 Lvl (test code = Vitamin 1508 B12 Lvl) [facility]2022-06-28 11:17:00 Test Item Value Reference Range Interpretation Comments Folate Lvl (test code = Folate Lvl) 22.3 [facility]2022-06-28 11:17:00 Test Item Value Reference Range Interpretation Comments Ferritin Lvl (test code = Ferritin Lvl) 1423 22-275 [facility]2022-06-28 11:17:00 Test Item Value Reference Range Interpretation Comments Glucose Lvl (test code = Glucose Lvl) 205 70-99 [facility]2022-06-28 11:17:00 Test Item Value Reference Range Interpretation Comments BUN (test code = BUN) 60 7-22 [facility]2022-06-28 11:17:00 Test Item Value Reference Range Interpretation Comments Creatinine Lvl (test code = Creatinine 8.46 0.50-1.40 Lvl) [facility]2022-06-28 11:17:00 Test Item Value Reference Range Interpretation Comments Sodium Lvl (test code = Sodium Lvl) 131 135-145 [facility]2022-06-28 11:17:00 Test Item Value Reference Range Interpretation Comments Potassium Lvl (test code = Potassium 5.2 3.5-5.1 Lvl) [facility]2022-06-28 11:17:00 Test Item Value Reference Range Interpretation Comments Chloride Lvl (test code = Chloride Lvl) 93 95-109 [place] 506282-06-28 11:17:00 Test Item Value Reference Range Interpretation Comments CO2 (test code = CO2) 29 24-32 [place] 506282-06-28 11:17:00 Test Item Value Reference Range Interpretation Comments Calcium Lvl (test code = Calcium Lvl) 8.7 8.5-10.5 [place] 506282-06-28 11:17:00 Test Item Value Reference Range Interpretation Comments Total Protein (test code = Total 6.0 6.4-8.4 Protein) [place] 506282-06-28 11:17:00 Test Item Value Reference Range Interpretation Comments Albumin Lvl (test code = Albumin Lvl) 2.6 3.5-5.0 [place] 506282-06-28 11:17:00 Test Item Value Reference Range Interpretation Comments ALT (test code = ALT) 43 See_Comment [Auto mated message] The system which ge nerated this result transmit swathi reference range : <=65. The reference range was not used to interpr et this result as deny l/abnormal. [facility]2022-06-28 11:17:00 Test Item Value Reference Range Interpretation Comments AST (test code = AST) 35 See_Comment [Auto mated message] The system which ge nerated this result transmit swathi reference range : <=37. The reference range was not used to interpr et this result as deny l/abnormal. [facility]2022-06-28 11:17:00 Test Item Value Reference Range Interpretation Comments Alk Phos (test code = Alk Phos) 385 39-136 [place] 506282-06-28 11:17:00 Test Item Value Reference Range Interpretation Comments Bili Total (test code = Bili Total) 1.2 0.2-1.3 [place] 506282-06-28 11:17:00 Test Item Value Reference Range Interpretation Comments AGAP (test code = AGAP) 14.2 10.0-20.0 [place] 506282-06-28 11:17:00 Test Item Value Reference Range Interpretation Comments B/C Ratio (test code = B/C Ratio) 7 1 6-25 [facility]2022-06-28 11:17:00 Test Item Value Reference Range Interpretation Comments Globulin (test code = Globulin) 3.4 2.7-4.2 [facility]2022-06-28 11:17:00 Test Item Value Reference Range Interpretation Comments A/G Ratio (test code = A/G Ratio) 0.8 1 0.7-1.6 [facility]2022-06-28 11:17:00 Test Item Value Reference Range Interpretation Comments eGFR (test code = eGFR) 6 [facility]2022-06-28 11:17:00 Test Item Value Reference Range Interpretation Comments Magnesium Lvl (test code = Magnesium 1.9 1.8-2.4 Lvl) [facility]2022-06-28 11:17:00 Test Item Value Reference Range Interpretation Comments LDH (test code = LDH) 297 98-192 [facility]2022-06-28 11:17:00 Test Item Value Reference Range Interpretation Comments Procalcitonin Lvl (test 0.63 See_Comment [Au tomated message] code = Procalcitonin Lvl) Th e system which generated this result transmitted ref erence range: <=0.10. The reference range was not used to interpr et this result as normal/abnormal . [facility]JT0041-41-53 11:17:00 Test Item Value Reference Range Interpretation Comments D-Dimer (test code = D-Dimer) 5.33 [facility]VLTRQ[facility]336[facility] 11:17:00 Test Item Value Reference Range Interpretation Comments Hep Bs Ag (test code Negative *NA*(11/25/21 = Hep Bs Ag) 6:17 AM) [facility]FW[facility]FK1093[facility] 11:17:00 Test Item Value Reference Range Interpretation Comments C-REACTIVE PROTEIN (test code = 134.0 C-REACTIVE PROTEIN) [facility]XrgruqzMBJCLRTGFI5722-98-26 11:17:00 Test Item Value Reference Range Interpretation Comments Interleukin 6 (test code = Interleukin 25.99 6) [facility]2022-06-28 11:17:00 Test Item Value Reference Range Interpretation Comments Vitamin B12 Lvl (test code = Vitamin 1508 B12 Lvl) [facility]2022-06-28 11:17:00 Test Item Value Reference Range Interpretation Comments Folate Lvl (test code = Folate Lvl) 22.3 [facility]2022-06-28 11:17:00 Test Item Value Reference Range Interpretation Comments Ferritin Lvl (test code = Ferritin Lvl) 1423 22-275 [place] 506282-06-28 11:17:00 Test Item Value Reference Range Interpretation Comments Glucose Lvl (test code = Glucose Lvl) 205 70-99 [place] 506282-06-28 11:17:00 Test Item Value Reference Range Interpretation Comments BUN (test code = BUN) 60 7-22 [place] 506282-06-28 11:17:00 Test Item Value Reference Range Interpretation Comments Creatinine Lvl (test code = Creatinine 8.46 0.50-1.40 Lvl) [facility]2022-06-28 11:17:00 Test Item Value Reference Range Interpretation Comments Sodium Lvl (test code = Sodium Lvl) 131 135-145 [facility]2022-06-28 11:17:00 Test Item Value Reference Range Interpretation Comments Potassium Lvl (test code = Potassium 5.2 3.5-5.1 Lvl) [facility]2022-06-28 11:17:00 Test Item Value Reference Range Interpretation Comments Chloride Lvl (test code = Chloride Lvl) 93 95-109 [facility]2022-06-28 11:17:00 Test Item Value Reference Range Interpretation Comments CO2 (test code = CO2) 29 24-32 [facility]2022-06-28 11:17:00 Test Item Value Reference Range Interpretation Comments Calcium Lvl (test code = Calcium Lvl) 8.7 8.5-10.5 [place]282-06-28 11:17:00 Test Item Value Reference Range Interpretation Comments Total Protein (test code = Total 6.0 6.4-8.4 Protein) [facility]2022-06-28 11:17:00 Test Item Value Reference Range Interpretation Comments Albumin Lvl (test code = Albumin Lvl) 2.6 3.5-5.0 [place] 506282-06-28 11:17:00 Test Item Value Reference Range Interpretation Comments ALT (test code = ALT) 43 See_Comment [Auto mated message] The system which ge nerated this result transmit swathi reference range : <=65. The reference range was not used to interpr et this result as deny l/abnormal. [facility] [employer] [id number] 11:17:00 Test Item Value Reference Range Interpretation Comments AST (test code = AST) 35 See_Comment [Auto mated message] The system which ge nerated this result transmit swathi reference range : <=37. The reference range was not used to interpr et this result as deny l/abnormal. [facility] [employer] [id number] 11:17:00 Test Item Value Reference Range Interpretation Comments Alk Phos (test code = Alk Phos) 385 39-136 [facility] [employer] [id number] 11:17:00 Test Item Value Reference Range Interpretation Comments Bili Total (test code = Bili Total) 1.2 0.2-1.3 [facility] [employer] [id number] 11:17:00 Test Item Value Reference Range Interpretation Comments AGAP (test code = AGAP) 14.2 10.0-20.0 [facility] [employer] [id number] 11:17:00 Test Item Value Reference Range Interpretation Comments B/C Ratio (test code = B/C Ratio) 7 1 6-25 [facility] [employer] [id number] 11:17:00 Test Item Value Reference Range Interpretation Comments Globulin (test code = Globulin) 3.4 2.7-4.2 [facility] [employer] [id number] 11:17:00 Test Item Value Reference Range Interpretation Comments A/G Ratio (test code = A/G Ratio) 0.8 1 0.7-1.6 [facility] [employer] [id number] 11:17:00 Test Item Value Reference Range Interpretation Comments eGFR (test code = eGFR) 6 [facility] [employer] [id number] 11:17:00 Test Item Value Reference Range Interpretation Comments Magnesium Lvl (test code = Magnesium 1.9 1.8-2.4 Lvl) [facility] [employer] [id number] 11:17:00 Test Item Value Reference Range Interpretation Comments LDH (test code = LDH) 297 98-192 [facility] [id number] 11:17:00 Test Item Value Reference Range Interpretation Comments Procalcitonin Lvl (test 0.63 See_Comment [Au tomated message] code = Procalcitonin Lvl) e system which generated this result transmitted ref erence range: <=0.10. The reference range was not used to interpr et this result as normal/abnormal . [facility]QnfvlwwHYLADJWFIE6302-95-04 11:17:00 Test Item Value Reference Range Interpretation Comments D-Dimer (test code = D-Dimer) 5.33 [facility]VmjywgyKKKQISDGDT9622-26-24 11:17:00 Test Item Value Reference Range Interpretation Comments Hep Bs Ag (test code Negative *NA*(11/25/21 = Hep Bs Ag) 6:17 AM) [place] 498432-06-28 11:17:00 Test Item Value Reference Range Interpretation Comments C-REACTIVE PROTEIN (test code = 134.0 C-REACTIVE PROTEIN) [place] 498432-06-28 11:17:00 Test Item Value Reference Range Interpretation Comments Interleukin 6 (test code = Interleukin 25.99 6) [facility]2022-06-28 11:17:00 Test Item Value Reference Range Interpretation Comments Vitamin B12 Lvl (test code = Vitamin 1508 B12 Lvl) [facility]2022-06-28 11:17:00 Test Item Value Reference Range Interpretation Comments Folate Lvl (test code = Folate Lvl) 22.3 [facility]2022-06-28 11:17:00 Test Item Value Reference Range Interpretation Comments Ferritin Lvl (test code = Ferritin Lvl) 1423 22-275 [facility]2022-06-28 11:17:00 Test Item Value Reference Range Interpretation Comments Glucose Lvl (test code = Glucose Lvl) 205 70-99 [facility]2022-06-28 11:17:00 Test Item Value Reference Range Interpretation Comments BUN (test code = BUN) 60 7-22 [facility]2022-06-28 11:17:00 Test Item Value Reference Range Interpretation Comments Creatinine Lvl (test code = Creatinine 8.46 0.50-1.40 Lvl) [facility]2022-06-28 11:17:00 Test Item Value Reference Range Interpretation Comments Sodium Lvl (test code = Sodium Lvl) 131 135-145 [place]282-06-28 11:17:00 Test Item Value Reference Range Interpretation Comments Potassium Lvl (test code = Potassium 5.2 3.5-5.1 Lvl) [place]282-06-28 11:17:00 Test Item Value Reference Range Interpretation Comments Chloride Lvl (test code = Chloride Lvl) 93 95-109 [place] 506282-06-28 11:17:00 Test Item Value Reference Range Interpretation Comments CO2 (test code = CO2) 29 24-32 [place]282-06-28 11:17:00 Test Item Value Reference Range Interpretation Comments Calcium Lvl (test code = Calcium Lvl) 8.7 8.5-10.5 [place]282-06-28 11:17:00 Test Item Value Reference Range Interpretation Comments Total Protein (test code = Total 6.0 6.4-8.4 Protein) [place] 506282-06-28 11:17:00 Test Item Value Reference Range Interpretation Comments Albumin Lvl (test code = Albumin Lvl) 2.6 3.5-5.0 [facility]2022-06-28 11:17:00 Test Item Value Reference Range Interpretation Comments ALT (test code = ALT) 43 See_Comment [Auto mated message] The system which ge nerated this result transmit swathi reference range : <=65. The reference range was not used to interpr et this result as deny l/abnormal. [facility]2022-06-28 11:17:00 Test Item Value Reference Range Interpretation Comments AST (test code = AST) 35 See_Comment [Auto mated message] The system which ge nerated this result transmit swathi reference range : <=37. The reference range was not used to interpr et this result as deny l/abnormal. [place]282-06-28 11:17:00 Test Item Value Reference Range Interpretation Comments Alk Phos (test code = Alk Phos) 385 39-136 [place]282-06-28 11:17:00 Test Item Value Reference Range Interpretation Comments Bili Total (test code = Bili Total) 1.2 0.2-1.3 [place]282-06-28 11:17:00 Test Item Value Reference Range Interpretation Comments AGAP (test code = AGAP) 14.2 10.0-20.0 [place]282-06-28 11:17:00 Test Item Value Reference Range Interpretation Comments B/C Ratio (test code = B/C Ratio) 7 1 6-25 [place]282-06-28 11:17:00 Test Item Value Reference Range Interpretation Comments Globulin (test code = Globulin) 3.4 2.7-4.2 [facility]2022-06-28 11:17:00 Test Item Value Reference Range Interpretation Comments A/G Ratio (test code = A/G Ratio) 0.8 1 0.7-1.6 [place]282-06-28 11:17:00 Test Item Value Reference Range Interpretation Comments eGFR (test code = eGFR) 6 [facility]2022-06-28 11:17:00 Test Item Value Reference Range Interpretation Comments Magnesium Lvl (test code = Magnesium 1.9 1.8-2.4 Lvl) [facility]2022-06-28 11:17:00 Test Item Value Reference Range Interpretation Comments LDH (test code = LDH) 297 98-192 [facility]2022-06-28 11:17:00 Test Item Value Reference Range Interpretation Comments Vitamin B12 Lvl (test code = Vitamin 1508 B12 Lvl) [facility]2022-06-28 11:17:00 Test Item Value Reference Range Interpretation Comments Folate Lvl (test code = Folate Lvl) 22.3 [facility]2022-06-28 11:17:00 Test Item Value Reference Range Interpretation Comments Ferritin Lvl (test code = Ferritin Lvl) 1423 22-275 [facility]2022-06-28 11:17:00 Test Item Value Reference Range Interpretation Comments Procalcitonin Lvl (test 0.63 See_Comment [Au tomated message] code = Procalcitonin Lvl) Th e system which generated this result transmitted ref erence range: <=0.10. The reference range was not used to interpr et this result as normal/abnormal . [facility]2022-06-28 11:17:00 Test Item Value Reference Range Interpretation Comments Glucose Lvl (test code = Glucose Lvl) 205 70-99 [facility]2022-06-28 11:17:00 Test Item Value Reference Range Interpretation Comments BUN (test code = BUN) 60 7-22 [place] 506282-06-28 11:17:00 Test Item Value Reference Range Interpretation Comments Creatinine Lvl (test code = Creatinine 8.46 0.50-1.40 Lvl) [place]282-06-28 11:17:00 Test Item Value Reference Range Interpretation Comments Sodium Lvl (test code = Sodium Lvl) 131 135-145 [place]282-06-28 11:17:00 Test Item Value Reference Range Interpretation Comments Potassium Lvl (test code = Potassium 5.2 3.5-5.1 Lvl) [place] 506282-06-28 11:17:00 Test Item Value Reference Range Interpretation Comments Chloride Lvl (test code = Chloride Lvl) 93 95-109 [place]282-06-28 11:17:00 Test Item Value Reference Range Interpretation Comments CO2 (test code = CO2) 29 24-32 [place]282-06-28 11:17:00 Test Item Value Reference Range Interpretation Comments Calcium Lvl (test code = Calcium Lvl) 8.7 8.5-10.5 [place]282-06-28 11:17:00 Test Item Value Reference Range Interpretation Comments Total Protein (test code = Total 6.0 6.4-8.4 Protein) [place]282-06-28 11:17:00 Test Item Value Reference Range Interpretation Comments Albumin Lvl (test code = Albumin Lvl) 2.6 3.5-5.0 [id number] 11:17:00 Test Item Value Reference Range Interpretation Comments D-Dimer (test code = D-Dimer) 5.33 [place] 506282-06-28 11:17:00 Test Item Value Reference Range Interpretation Comments ALT (test code = ALT) 43 See_Comment [Auto mated message] The system which ge nerated this result transmit swathi reference range : <=65. The reference range was not used to interpr et this result as deny l/abnormal. [place]282-06-28 11:17:00 Test Item Value Reference Range Interpretation Comments AST (test code = AST) 35 See_Comment [Auto mated message] The system which ge nerated this result transmit swathi reference range : <=37. The reference range was not used to interpr et this result as deny l/abnormal. [facility] [id number] 11:17:00 Test Item Value Reference Range Interpretation Comments Alk Phos (test code = Alk Phos) 385 39-136 [facility] [id number] 11:17:00 Test Item Value Reference Range Interpretation Comments Bili Total (test code = Bili Total) 1.2 0.2-1.3 [facility]2022-06-28 11:17:00 Test Item Value Reference Range Interpretation Comments AGAP (test code = AGAP) 14.2 10.0-20.0 [facility]2022-06-28 11:17:00 Test Item Value Reference Range Interpretation Comments B/C Ratio (test code = B/C Ratio) 7 1 6-25 [facility]2022-06-28 11:17:00 Test Item Value Reference Range Interpretation Comments Globulin (test code = Globulin) 3.4 2.7-4.2 [facility] [id number] 11:17:00 Test Item Value Reference Range Interpretation Comments A/G Ratio (test code = A/G Ratio) 0.8 1 0.7-1.6 [facility]2022-06-28 11:17:00 Test Item Value Reference Range Interpretation Comments eGFR (test code = eGFR) 6 [facility]2022-06-28 11:17:00 Test Item Value Reference Range Interpretation Comments Magnesium Lvl (test code = Magnesium 1.9 1.8-2.4 Lvl) [facility] [id number] 11:17:00 Test Item Value Reference Range Interpretation Comments Hep Bs Ag (test code Negative *NA*(11/25/21 = Hep Bs Ag) 6:17 AM) [facility] [id number] 11:17:00 Test Item Value Reference Range Interpretation Comments LDH (test code = LDH) 297 98-192 [facility] [id number] 11:17:00 Test Item Value Reference Range Interpretation Comments Procalcitonin Lvl (test 0.63 See_Comment [Au tomated message] code = Procalcitonin Lvl) Th e system which generated this result transmitted ref erence range: <=0.10. The reference range was not used to interpr et this result as normal/abnormal . [facility] CampusFuycuihMLHEFOQETY6808-48-11 11:17:00 Test Item Value Reference Range Interpretation Comments D-Dimer (test code = D-Dimer) 5.33 [facility] CenterSfodnzcQFBNUEDMVR3636-12-78 11:17:00 Test Item Value Reference Range Interpretation Comments Hep Bs Ag (test code Negative *NA*(11/25/21 = Hep Bs Ag) 6:17 AM) [place] 498432-06-28 11:17:00 Test Item Value Reference Range Interpretation Comments C-REACTIVE PROTEIN (test code = 134.0 C-REACTIVE PROTEIN) [place] 498432-06-28 11:17:00 Test Item Value Reference Range Interpretation Comments Interleukin 6 (test code = Interleukin 25.99 6) [place] 498432-06-28 11:17:00 Test Item Value Reference Range Interpretation Comments C-REACTIVE PROTEIN (test code = 134.0 C-REACTIVE PROTEIN) [place] [address]-06-28 11:17:00 Test Item Value Reference Range Interpretation Comments Interleukin 6 (test code = Interleukin 25.99 6) [facility]2022-06-28 11:17:00 Test Item Value Reference Range Interpretation Comments Vitamin B12 Lvl (test code = Vitamin 1508 B12 Lvl) [facility]2022-06-28 11:17:00 Test Item Value Reference Range Interpretation Comments Folate Lvl (test code = Folate Lvl) 22.3 [facility]2022-06-28 11:17:00 Test Item Value Reference Range Interpretation Comments Ferritin Lvl (test code = Ferritin Lvl) 1423 22-275 [facility]2022-06-28 11:17:00 Test Item Value Reference Range Interpretation Comments Glucose Lvl (test code = Glucose Lvl) 205 70-99 [facility]2022-06-28 11:17:00 Test Item Value Reference Range Interpretation Comments BUN (test code = BUN) 60 7-22 [facility]2022-06-28 11:17:00 Test Item Value Reference Range Interpretation Comments Creatinine Lvl (test code = Creatinine 8.46 0.50-1.40 Lvl) [place]282-06-28 11:17:00 Test Item Value Reference Range Interpretation Comments Sodium Lvl (test code = Sodium Lvl) 131 135-145 [place] 506282-06-28 11:17:00 Test Item Value Reference Range Interpretation Comments Potassium Lvl (test code = Potassium 5.2 3.5-5.1 Lvl) [place]282-06-28 11:17:00 Test Item Value Reference Range Interpretation Comments Chloride Lvl (test code = Chloride Lvl) 93 95-109 [place] 506282-06-28 11:17:00 Test Item Value Reference Range Interpretation Comments CO2 (test code = CO2) 29 24-32 [place] 506282-06-28 11:17:00 Test Item Value Reference Range Interpretation Comments Calcium Lvl (test code = Calcium Lvl) 8.7 8.5-10.5 [place] 506282-06-28 11:17:00 Test Item Value Reference Range Interpretation Comments Total Protein (test code = Total 6.0 6.4-8.4 Protein) [place] 506282-06-28 11:17:00 Test Item Value Reference Range Interpretation Comments Albumin Lvl (test code = Albumin Lvl) 2.6 3.5-5.0 [place]282-06-28 11:17:00 Test Item Value Reference Range Interpretation Comments ALT (test code = ALT) 43 See_Comment [Auto mated message] The system which ge nerated this result transmit swathi reference range : <=65. The reference range was not used to interpr et this result as deny l/abnormal. [place] 506282-06-28 11:17:00 Test Item Value Reference Range Interpretation Comments AST (test code = AST) 35 See_Comment [Auto mated message] The system which ge nerated this result transmit swathi reference range : <=37. The reference range was not used to interpr et this result as deny l/abnormal. [place] 506282-06-28 11:17:00 Test Item Value Reference Range Interpretation Comments Alk Phos (test code = Alk Phos) 385 39-136 [facility]2022-06-28 11:17:00 Test Item Value Reference Range Interpretation Comments Bili Total (test code = Bili Total) 1.2 0.2-1.3 [facility]2022-06-28 11:17:00 Test Item Value Reference Range Interpretation Comments AGAP (test code = AGAP) 14.2 10.0-20.0 [facility]2022-06-28 11:17:00 Test Item Value Reference Range Interpretation Comments B/C Ratio (test code = B/C Ratio) 7 1 6-25 [facility]2022-06-28 11:17:00 Test Item Value Reference Range Interpretation Comments Globulin (test code = Globulin) 3.4 2.7-4.2 [facility]2022-06-28 11:17:00 Test Item Value Reference Range Interpretation Comments A/G Ratio (test code = A/G Ratio) 0.8 1 0.7-1.6 [facility]2022-06-28 11:17:00 Test Item Value Reference Range Interpretation Comments eGFR (test code = eGFR) 6 [facility]2022-06-28 11:17:00 Test Item Value Reference Range Interpretation Comments Magnesium Lvl (test code = Magnesium 1.9 1.8-2.4 Lvl) [facility]2022-06-28 11:17:00 Test Item Value Reference Range Interpretation Comments LDH (test code = LDH) 297 98-192 [facility]2022-06-28 11:17:00 Test Item Value Reference Range Interpretation Comments Procalcitonin Lvl (test 0.63 See_Comment [Au tomated message] code = Procalcitonin Lvl) Th e system which generated this result transmitted ref erence range: <=0.10. The reference range was not used to interpr et this result as normal/abnormal . [facility] HospitalOnockkgOOEYCEYUOF5787-00-70 11:17:00 Test Item Value Reference Range Interpretation Comments D-Dimer (test code = D-Dimer) 5.33 [facility] CenterPcofxyeLIBYFACRCR8039-45-78 11:17:00 Test Item Value Reference Range Interpretation Comments Hep Bs Ag (test code Negative *NA*(11/25/21 = Hep Bs Ag) 6:17 AM) [place] 498432-06-28 11:17:00 Test Item Value Reference Range Interpretation Comments C-REACTIVE PROTEIN (test code = 134.0 C-REACTIVE PROTEIN) [place] 498432-06-28 11:17:00 Test Item Value Reference Range Interpretation Comments Interleukin 6 (test code = Interleukin 25.99 6) [facility]2022-06-28 11:17:00 Test Item Value Reference Range Interpretation Comments Vitamin B12 Lvl (test code = Vitamin 1508 B12 Lvl) [facility]2022-06-28 11:17:00 Test Item Value Reference Range Interpretation Comments Folate Lvl (test code = Folate Lvl) 22.3 [place] 508162-06-28 11:17:00 Test Item Value Reference Range Interpretation Comments Ferritin Lvl (test code = Ferritin Lvl) 1423 22275 [place] 506282-06-28 11:17:00 Test Item Value Reference Range Interpretation Comments Glucose Lvl (test code = Glucose Lvl) 205 70-99 [place] 506282-06-28 11:17:00 Test Item Value Reference Range Interpretation Comments BUN (test code = BUN) 60 7-22 [place] 506282-06-28 11:17:00 Test Item Value Reference Range Interpretation Comments Creatinine Lvl (test code = Creatinine 8.46 0.50-1.40 Lvl) [place] 506282-06-28 11:17:00 Test Item Value Reference Range Interpretation Comments Sodium Lvl (test code = Sodium Lvl) 131 135-145 [place] 506282-06-28 11:17:00 Test Item Value Reference Range Interpretation Comments Potassium Lvl (test code = Potassium 5.2 3.5-5.1 Lvl) [place] 506282-06-28 11:17:00 Test Item Value Reference Range Interpretation Comments Chloride Lvl (test code = Chloride Lvl) 93 95-109 [place] 506282-06-28 11:17:00 Test Item Value Reference Range Interpretation Comments CO2 (test code = CO2) 29 24-32 [place] 506282-06-28 11:17:00 Test Item Value Reference Range Interpretation Comments Calcium Lvl (test code = Calcium Lvl) 8.7 8.5-10.5 [place] 506282-06-28 11:17:00 Test Item Value Reference Range Interpretation Comments Total Protein (test code = Total 6.0 6.4-8.4 Protein) [place] 506282-06-28 11:17:00 Test Item Value Reference Range Interpretation Comments Albumin Lvl (test code = Albumin Lvl) 2.6 3.5-5.0 [place]282-06-28 11:17:00 Test Item Value Reference Range Interpretation Comments ALT (test code = ALT) 43 See_Comment [Auto mated message] The system which ge nerated this result transmit swathi reference range : <=65. The reference range was not used to interpr et this result as deny l/abnormal. [place]282-06-28 11:17:00 Test Item Value Reference Range Interpretation Comments AST (test code = AST) 35 See_Comment [Auto mated message] The system which ge nerated this result transmit swathi reference range : <=37. The reference range was not used to interpr et this result as deny l/abnormal. [facility]2022-06-28 11:17:00 Test Item Value Reference Range Interpretation Comments Alk Phos (test code = Alk Phos) 385 39-136 [facility]2022-06-28 11:17:00 Test Item Value Reference Range Interpretation Comments Bili Total (test code = Bili Total) 1.2 0.2-1.3 [place] 506282-06-28 11:17:00 Test Item Value Reference Range Interpretation Comments AGAP (test code = AGAP) 14.2 10.0-20.0 [place] 506282-06-28 11:17:00 Test Item Value Reference Range Interpretation Comments B/C Ratio (test code = B/C Ratio) 7 1 6-25 [place] 506282-06-28 11:17:00 Test Item Value Reference Range Interpretation Comments Globulin (test code = Globulin) 3.4 2.7-4.2 [place] 506282-06-28 11:17:00 Test Item Value Reference Range Interpretation Comments A/G Ratio (test code = A/G Ratio) 0.8 1 0.7-1.6 [place]282-06-28 11:17:00 Test Item Value Reference Range Interpretation Comments eGFR (test code = eGFR) 6 [facility]2022-06-28 11:17:00 Test Item Value Reference Range Interpretation Comments Magnesium Lvl (test code = Magnesium 1.9 1.8-2.4 Lvl) [place] 506282-06-28 11:17:00 Test Item Value Reference Range Interpretation Comments LDH (test code = LDH) 297 98-192 [facility]2022-06-28 11:17:00 Test Item Value Reference Range Interpretation Comments Procalcitonin Lvl (test 0.63 See_Comment [Au tomated message] code = Procalcitonin Lvl) e system which generated this result transmitted ref erence range: <=0.10. The reference range was not used to interpr et this result as normal/abnormal . [id number] 11:17:00 Test Item Value Reference Range Interpretation Comments D-Dimer (test code = D-Dimer) 5.33 [place] 498432-06-28 11:17:00 Test Item Value Reference Range Interpretation Comments Hep Bs Ag (test code Negative *NA*(11/25/21 = Hep Bs Ag) 6:17 AM) [place] 498432-06-28 11:17:00 Test Item Value Reference Range Interpretation Comments C-REACTIVE PROTEIN (test code = 134.0 C-REACTIVE PROTEIN) [place] 498432-06-28 11:17:00 Test Item Value Reference Range Interpretation Comments Interleukin 6 (test code = Interleukin 25.99 6) [facility]2022-06-28 11:17:00 Test Item Value Reference Range Interpretation Comments Vitamin B12 Lvl (test code = Vitamin 1508 B12 Lvl) [facility]2022-06-28 11:17:00 Test Item Value Reference Range Interpretation Comments Folate Lvl (test code = Folate Lvl) 22.3 [facility]2022-06-28 11:17:00 Test Item Value Reference Range Interpretation Comments Ferritin Lvl (test code = Ferritin Lvl) 1423 22-275 [place] 506282-06-28 11:17:00 Test Item Value Reference Range Interpretation Comments Glucose Lvl (test code = Glucose Lvl) 205 70-99 [place] 506282-06-28 11:17:00 Test Item Value Reference Range Interpretation Comments BUN (test code = BUN) 60 7-22 [place] 506282-06-28 11:17:00 Test Item Value Reference Range Interpretation Comments Creatinine Lvl (test code = Creatinine 8.46 0.50-1.40 Lvl) [place] 506282-06-28 11:17:00 Test Item Value Reference Range Interpretation Comments Sodium Lvl (test code = Sodium Lvl) 131 135-145 [place] 506282-06-28 11:17:00 Test Item Value Reference Range Interpretation Comments Potassium Lvl (test code = Potassium 5.2 3.5-5.1 Lvl) [place] 506282-06-28 11:17:00 Test Item Value Reference Range Interpretation Comments Chloride Lvl (test code = Chloride Lvl) 93 95-109 [place] 506282-06-28 11:17:00 Test Item Value Reference Range Interpretation Comments CO2 (test code = CO2) 29 24-32 [place] 506282-06-28 11:17:00 Test Item Value Reference Range Interpretation Comments Calcium Lvl (test code = Calcium Lvl) 8.7 8.5-10.5 [place] 506282-06-28 11:17:00 Test Item Value Reference Range Interpretation Comments Total Protein (test code = Total 6.0 6.4-8.4 Protein) [place] 506282-06-28 11:17:00 Test Item Value Reference Range Interpretation Comments Albumin Lvl (test code = Albumin Lvl) 2.6 3.5-5.0 [place]282-06-28 11:17:00 Test Item Value Reference Range Interpretation Comments ALT (test code = ALT) 43 See_Comment [Auto mated message] The system which ge nerated this result transmit swathi reference range : <=65. The reference range was not used to interpr et this result as deny l/abnormal. [place] 506282-06-28 11:17:00 Test Item Value Reference Range Interpretation Comments AST (test code = AST) 35 See_Comment [Auto mated message] The system which ge nerated this result transmit swathi reference range : <=37. The reference range was not used to interpr et this result as deny l/abnormal. [place] 506282-06-28 11:17:00 Test Item Value Reference Range Interpretation Comments Alk Phos (test code = Alk Phos) 385 39-136 [facility]2022-06-28 11:17:00 Test Item Value Reference Range Interpretation Comments Bili Total (test code = Bili Total) 1.2 0.2-1.3 [place]282-06-28 11:17:00 Test Item Value Reference Range Interpretation Comments AGAP (test code = AGAP) 14.2 10.0-20.0 [place] 506282-06-28 11:17:00 Test Item Value Reference Range Interpretation Comments B/C Ratio (test code = B/C Ratio) 7 1 6-25 [place] [address]-06-28 11:17:00 Test Item Value Reference Range Interpretation Comments Globulin (test code = Globulin) 3.4 2.7-4.2 [place] 506282-06-28 11:17:00 Test Item Value Reference Range Interpretation Comments A/G Ratio (test code = A/G Ratio) 0.8 1 0.7-1.6 [place] [address]-06-28 11:17:00 Test Item Value Reference Range Interpretation Comments eGFR (test code = eGFR) 6 [facility]2022-06-28 11:17:00 Test Item Value Reference Range Interpretation Comments Magnesium Lvl (test code = Magnesium 1.9 1.8-2.4 Lvl) [place] 506282-06-28 11:17:00 Test Item Value Reference Range Interpretation Comments LDH (test code = LDH) 297 98-192 [facility]2022-06-28 11:17:00 Test Item Value Reference Range Interpretation Comments Procalcitonin Lvl (test 0.63 See_Comment [Au tomated message] code = Procalcitonin Lvl) e system which generated this result transmitted ref erence range: <=0.10. The reference range was not used to interpr et this result as normal/abnormal . [id number] 11:17:00 Test Item Value Reference Range Interpretation Comments D-Dimer (test code = D-Dimer) 5.33 [place] 498432-06-28 11:17:00 Test Item Value Reference Range Interpretation Comments Hep Bs Ag (test code Negative *NA*(11/25/21 = Hep Bs Ag) 6:17 AM) [id number] 11:17:00 Test Item Value Reference Range Interpretation Comments C-REACTIVE PROTEIN (test code = 134.0 C-REACTIVE PROTEIN) [place] 498432-06-28 11:17:00 Test Item Value Reference Range Interpretation Comments Interleukin 6 (test code = Interleukin 25.99 6) [facility]2022-06-28 11:17:00 Test Item Value Reference Range Interpretation Comments Vitamin B12 Lvl (test code = Vitamin 1508 B12 Lvl) [facility]2022-06-28 11:17:00 Test Item Value Reference Range Interpretation Comments Folate Lvl (test code = Folate Lvl) 22.3 [facility]2022-06-28 11:17:00 Test Item Value Reference Range Interpretation Comments Ferritin Lvl (test code = Ferritin Lvl) 1423 22-275 [facility]2022-06-28 11:17:00 Test Item Value Reference Range Interpretation Comments Glucose Lvl (test code = Glucose Lvl) 205 70-99 [facility]2022-06-28 11:17:00 Test Item Value Reference Range Interpretation Comments BUN (test code = BUN) 60 7-22 [facility]2022-06-28 11:17:00 Test Item Value Reference Range Interpretation Comments Creatinine Lvl (test code = Creatinine 8.46 0.50-1.40 Lvl) [facility]2022-06-28 11:17:00 Test Item Value Reference Range Interpretation Comments Sodium Lvl (test code = Sodium Lvl) 131 135-145 [place] 506282-06-28 11:17:00 Test Item Value Reference Range Interpretation Comments Potassium Lvl (test code = Potassium 5.2 3.5-5.1 Lvl) [place] 506282-06-28 11:17:00 Test Item Value Reference Range Interpretation Comments Chloride Lvl (test code = Chloride Lvl) 93 95-109 [place] 506282-06-28 11:17:00 Test Item Value Reference Range Interpretation Comments CO2 (test code = CO2) 29 24-32 [facility] [id number] 11:17:00 Test Item Value Reference Range Interpretation Comments Calcium Lvl (test code = Calcium Lvl) 8.7 8.5-10.5 [facility]2022-06-28 11:17:00 Test Item Value Reference Range Interpretation Comments Total Protein (test code = Total 6.0 6.4-8.4 Protein) [facility]2022-06-28 11:17:00 Test Item Value Reference Range Interpretation Comments Albumin Lvl (test code = Albumin Lvl) 2.6 3.5-5.0 [facility] [id number] 11:17:00 Test Item Value Reference Range Interpretation Comments ALT (test code = ALT) 43 See_Comment [Auto mated message] The system which ge nerated this result transmit swathi reference range : <=65. The reference range was not used to interpr et this result as deny l/abnormal. [facility] [id number] 11:17:00 Test Item Value Reference Range Interpretation Comments AST (test code = AST) 35 See_Comment [Auto mated message] The system which ge nerated this result transmit swathi reference range : <=37. The reference range was not used to interpr et this result as deny l/abnormal. [facility] [id number] 11:17:00 Test Item Value Reference Range Interpretation Comments Alk Phos (test code = Alk Phos) 385 39-136 [facility] [id number] 11:17:00 Test Item Value Reference Range Interpretation Comments Bili Total (test code = Bili Total) 1.2 0.2-1.3 [facility] [id number] 11:17:00 Test Item Value Reference Range Interpretation Comments AGAP (test code = AGAP) 14.2 10.0-20.0 [facility] [id number] 11:17:00 Test Item Value Reference Range Interpretation Comments B/C Ratio (test code = B/C Ratio) 7 1 6-25 [facility] [id number] 11:17:00 Test Item Value Reference Range Interpretation Comments Globulin (test code = Globulin) 3.4 2.7-4.2 [facility]2022-06-28 11:17:00 Test Item Value Reference Range Interpretation Comments A/G Ratio (test code = A/G Ratio) 0.8 1 0.7-1.6 [facility]2022-06-28 11:17:00 Test Item Value Reference Range Interpretation Comments eGFR (test code = eGFR) 6 [facility]2022-06-28 11:17:00 Test Item Value Reference Range Interpretation Comments Magnesium Lvl (test code = Magnesium 1.9 1.8-2.4 Lvl) [facility]2022-06-28 11:17:00 Test Item Value Reference Range Interpretation Comments LDH (test code = LDH) 297 98-192 [facility]2022-06-28 11:17:00 Test Item Value Reference Range Interpretation Comments Procalcitonin Lvl (test 0.63 See_Comment [Au tomated message] code = Procalcitonin Lvl) e system which generated this result transmitted ref erence range: <=0.10. The reference range was not used to interpr et this result as normal/abnormal . [facility] [id number] 11:17:00 Test Item Value Reference Range Interpretation Comments D-Dimer (test code = D-Dimer) 5.33 [facility] C[id number] 11:17:00 Test Item Value Reference Range Interpretation Comments Hep Bs Ag (test code Negative *NA*(11/25/21 = Hep Bs Ag) 6:17 AM) [facility] [id number] 11:17:00 Test Item Value Reference Range Interpretation Comments C-REACTIVE PROTEIN (test code = 134.0 C-REACTIVE PROTEIN) [facility] CenterL[id number] 11:17:00 Test Item Value Reference Range Interpretation Comments Interleukin 6 (test code = Interleukin 25.99 6) [facility] B[facility] [id number] 05:52:00 Test Item Value Reference Range Interpretation Comments RBC product (test code Product available = RBC product) 4(11/25/21 12:52 AM) [facility] [id number] 05:52:00 Test Item Value Reference Range Interpretation Comments RBC product (test code Product available = RBC product) 4(11/25/21 12:52 AM) [facility] [id number] 05:52:00 Test Item Value Reference Range Interpretation Comments RBC product (test code Product available = RBC product) 4(11/25/21 12:52 AM) [facility] [id number] 05:52:00 Test Item Value Reference Range Interpretation Comments RBC product (test code Product available = RBC product) 4(11/25/21 12:52 AM) [facility] [id number] 05:52:00 Test Item Value Reference Range Interpretation Comments RBC product (test code Product available = RBC product) 4(11/25/21 12:52 AM) [facility] [id number] 05:52:00 Test Item Value Reference Range Interpretation Comments RBC product (test code Product available = RBC product) 4(11/25/21 12:52 AM) [facility] [id number] 05:52:00 Test Item Value Reference Range Interpretation Comments RBC product (test code Product available = RBC product) 4(11/25/21 12:52 AM) [facility] [id number] 05:52:00 Test Item Value Reference Range Interpretation Comments RBC product (test code Product available = RBC product) 4(11/25/21 12:52 AM) [facility] [id number] 05:52:00 Test Item Value Reference Range Interpretation Comments RBC product (test code Product available = RBC product) 4(11/25/21 12:52 AM) [facility] [id number] 05:52:00 Test Item Value Reference Range Interpretation Comments RBC product (test code Product available = RBC product) 4(11/25/21 12:52 AM) [facility] [id number] 05:52:00 Test Item Value Reference Range Interpretation Comments RBC product (test code Product available = RBC product) 4(11/25/21 12:52 AM) [facility] [id number] 05:52:00 Test Item Value Reference Range Interpretation Comments RBC product (test code Product available = RBC product) 4(11/25/21 12:52 AM) [facility] [id number] 05:43:00 Test Item Value Reference Range Interpretation Comments Coronavirus (COVID-19) Detected MANUEL (test code = 8*ABN*(11/25/21 12:43 Coronavirus (COVID-19) AM) MANUEL) [place] [address]-06-28 05:43:00 Test Item Value Reference Range Interpretation Comments Coronavirus (COVID-19) Detected MANUEL (test code = 8*ABN*(11/25/21 12:43 Coronavirus (COVID-19) AM) MANUEL) [place] [address]-06-28 05:43:00 Test Item Value Reference Range Interpretation Comments Coronavirus (COVID-19) Detected MANUEL (test code = 8*ABN*(11/25/21 12:43 Coronavirus (COVID-19) AM) MANUEL) [place] [address]-06-28 05:43:00 Test Item Value Reference Range Interpretation Comments Coronavirus (COVID-19) Detected MANUEL (test code = 8*ABN*(11/25/21 12:43 Coronavirus (COVID-19) AM) MANUEL) [place] [address]-06-28 05:43:00 Test Item Value Reference Range Interpretation Comments Coronavirus (COVID-19) Detected MANUEL (test code = 8*ABN*(11/25/21 12:43 Coronavirus (COVID-19) AM) MANUEL) [facility] [id number] 05:43:00 Test Item Value Reference Range Interpretation Comments Coronavirus (COVID-19) Detected MANUEL (test code = 8*ABN*(11/25/21 12:43 Coronavirus (COVID-19) AM) MANUEL) [facility] [id number] 05:43:00 Test Item Value Reference Range Interpretation Comments Coronavirus (COVID-19) Detected MANUEL (test code = 8*ABN*(11/25/21 12:43 Coronavirus (COVID-19) AM) MANUEL) [place] [address]-06-28 05:43:00 Test Item Value Reference Range Interpretation Comments Coronavirus (COVID-19) Detected MANUEL (test code = 8*ABN*(11/25/21 12:43 Coronavirus (COVID-19) AM) MANUEL) [place] [address]-06-28 05:43:00 Test Item Value Reference Range Interpretation Comments Coronavirus (COVID-19) Detected MANUEL (test code = 8*ABN*(11/25/21 12:43 Coronavirus (COVID-19) AM) MANUEL) [facility] [id number] 05:43:00 Test Item Value Reference Range Interpretation Comments Coronavirus (COVID-19) Detected MANUEL (test code = 8*ABN*(11/25/21 12:43 Coronavirus (COVID-19) AM) MANUEL) [facility] [id number] 05:43:00 Test Item Value Reference Range Interpretation Comments Coronavirus (COVID-19) Detected MANUEL (test code = 8*ABN*(11/25/21 12:43 Coronavirus (COVID-19) AM) MANUEL) [facility] [id number] 05:43:00 Test Item Value Reference Range Interpretation Comments Coronavirus (COVID-19) Detected MANUEL (test code = 8*ABN*(11/25/21 12:43 Coronavirus (COVID-19) AM) MANUEL) [facility] AND [id number] 05:23:00 Test Item Value Reference Range Interpretation Comments Occult Bld Stl (test Negative (11/25/21 12:23 code = Occult Bld Stl) AM) [facility] AND [id number] 05:23:00 Test Item Value Reference Range Interpretation Comments Occult Bld Stl (test Negative (11/25/21 12:23 code = Occult Bld Stl) AM) [facility] AND [id number] 05:23:00 Test Item Value Reference Range Interpretation Comments Occult Bld Stl (test Negative (11/25/21 12:23 code = Occult Bld Stl) AM) [facility] AND [id number] 05:23:00 Test Item Value Reference Range Interpretation Comments Occult Bld Stl (test Negative (11/25/21 12:23 code = Occult Bld Stl) AM) [facility] AND [id number] 05:23:00 Test Item Value Reference Range Interpretation Comments Occult Bld Stl (test Negative (11/25/21 12:23 code = Occult Bld Stl) AM) [facility] AND [id number] 05:23:00 Test Item Value Reference Range Interpretation Comments Occult Bld Stl (test Negative (11/25/21 12:23 code = Occult Bld Stl) AM) [facility] AND [id number] 05:23:00 Test Item Value Reference Range Interpretation Comments Occult Bld Stl (test Negative (11/25/21 12:23 code = Occult Bld Stl) AM) [facility] AND [id number] 05:23:00 Test Item Value Reference Range Interpretation Comments Occult Bld Stl (test Negative (11/25/21 12:23 code = Occult Bld Stl) AM) [facility] AND [id number] 05:23:00 Test Item Value Reference Range Interpretation Comments Occult Bld Stl (test Negative (11/25/21 12:23 code = Occult Bld Stl) AM) [facility] AND [id number] 05:23:00 Test Item Value Reference Range Interpretation Comments Occult Bld Stl (test Negative (11/25/21 12:23 code = Occult Bld Stl) AM) [facility] AND [id number] 05:23:00 Test Item Value Reference Range Interpretation Comments Occult Bld Stl (test Negative (11/25/21 12:23 code = Occult Bld Stl) AM) [facility] AND [id number] 05:23:00 Test Item Value Reference Range Interpretation Comments Occult Bld Stl (test Negative (11/25/21 12:23 code = Occult Bld Stl) AM) [facility] SUPR [id number] 04:12:00 Test Item Value Reference Range Interpretation Comments ABO/Rh (test code = ABO/Rh) AB POS [facility] SUPR [id number] 04:12:00 Test Item Value Reference Range Interpretation Comments Antibody Scrn (test Negative (11/24/21 code = Antibody Scrn) 11:12 PM) [facility] [employer] [id number] 04:12:00 Test Item Value Reference Range Interpretation Comments Total CK (test code = Total CK) 86 12-191 [facility] [employer] [id number] 04:12:00 Test Item Value Reference Range Interpretation Comments HS Troponin I (test code = HS Troponin 316 I) [place] 506282-06-28 04:12:00 Test Item Value Reference Range Interpretation Comments Glucose Lvl (test code = Glucose Lvl) 261 70-99 [place] 506282-06-28 04:12:00 Test Item Value Reference Range Interpretation Comments BUN (test code = BUN) 60 7-22 [place] 506282-06-28 04:12:00 Test Item Value Reference Range Interpretation Comments Creatinine Lvl (test code = Creatinine 8.49 0.50-1.40 Lvl) [place] 506282-06-28 04:12:00 Test Item Value Reference Range Interpretation Comments Sodium Lvl (test code = Sodium Lvl) 133 135-145 [place] 506282-06-28 04:12:00 Test Item Value Reference Range Interpretation Comments Potassium Lvl (test code = Potassium 4.9 3.5-5.1 Lvl) [place]282-06-28 04:12:00 Test Item Value Reference Range Interpretation Comments Chloride Lvl (test code = Chloride Lvl) 93 95-109 [place] 506282-06-28 04:12:00 Test Item Value Reference Range Interpretation Comments CO2 (test code = CO2) 31 24-32 [place]282-06-28 04:12:00 Test Item Value Reference Range Interpretation Comments Calcium Lvl (test code = Calcium Lvl) 9.1 8.5-10.5 [place]282-06-28 04:12:00 Test Item Value Reference Range Interpretation Comments Total Protein (test code = Total 6.8 6.4-8.4 Protein) [place] 506282-06-28 04:12:00 Test Item Value Reference Range Interpretation Comments Albumin Lvl (test code = Albumin Lvl) 2.5 3.5-5.0 [place]282-06-28 04:12:00 Test Item Value Reference Range Interpretation Comments ALT (test code = ALT) 51 See_Comment [Auto mated message] The system which ge nerated this result transmit swathi reference range : <=65. The reference range was not used to interpr et this result as deny l/abnormal. [place]282-06-28 04:12:00 Test Item Value Reference Range Interpretation Comments AST (test code = AST) 36 See_Comment [Auto mated message] The system which ge nerated this result transmit swathi reference range : <=37. The reference range was not used to interpr et this result as deny l/abnormal. [facility] [id number] 04:12:00 Test Item Value Reference Range Interpretation Comments Alk Phos (test code = Alk Phos) 383 39-136 [facility] [id number] 04:12:00 Test Item Value Reference Range Interpretation Comments Bili Total (test code = Bili Total) 1.1 0.2-1.3 [facility] [id number] 04:12:00 Test Item Value Reference Range Interpretation Comments AGAP (test code = AGAP) 13.9 10.0-20.0 [facility] [id number] 04:12:00 Test Item Value Reference Range Interpretation Comments B/C Ratio (test code = B/C Ratio) 7 1 6-25 [place]282-06-28 04:12:00 Test Item Value Reference Range Interpretation Comments Globulin (test code = Globulin) 4.3 2.7-4.2 [facility] [id number] 04:12:00 Test Item Value Reference Range Interpretation Comments A/G Ratio (test code = A/G Ratio) 0.6 1 0.7-1.6 [place] 506282-06-28 04:12:00 Test Item Value Reference Range Interpretation Comments eGFR (test code = eGFR) 5 [place] 506282-06-28 04:12:00 Test Item Value Reference Range Interpretation Comments Procalcitonin Lvl (test 0.69 See_Comment [Au tomated message] code = Procalcitonin Lvl) Th e system which generated this result transmitted ref erence range: <=0.10. The reference range was not used to interpr et this result as normal/abnormal . [facility]ogmygNFOBNZWWYK5317[facility] 04:12:00 Test Item Value Reference Range Interpretation Comments WBC (test code = WBC) 4.1 3.7-10.4 [place] 155092-06-28 04:12:00 Test Item Value Reference Range Interpretation Comments RBC (test code = RBC) 1.78 4.70-6.10 [facility]EdctvlbPPLUNNKTEK9271-34-15 04:12:00 Test Item Value Reference Range Interpretation Comments Hgb (test code = Hgb) 6.5 14.0-18.0 [facility] CampusWmwxtlkGADWFRJODR7017-55-69 04:12:00 Test Item Value Reference Range Interpretation Comments Hct (test code = Hct) 19.5 42.0-54.0 [facility] CampusCqmkerjKYHOYAGWMN6475-09-63 04:12:00 Test Item Value Reference Range Interpretation Comments MCV (test code = MCV) 110.0 80.0-94.0 [facility] CampusQvmzsxgRVUQABQPMG3743-63-16 04:12:00 Test Item Value Reference Range Interpretation Comments MCH (test code = MCH) 36.5 pg 27.0-31.0 [facility] CampusUjvhwavWEIJUNCPYI1360-37-52 04:12:00 Test Item Value Reference Range Interpretation Comments MCHC (test code = MCHC) 33.2 32.0-36.0 [facility] CampusOdlktsgAJHNOGUEJJ9160-28-98 04:12:00 Test Item Value Reference Range Interpretation Comments RDW (test code = RDW) 19.0 11.5-14.5 [facility] CampusIvftantYZMSUXYGSW0473-10-98 04:12:00 Test Item Value Reference Range Interpretation Comments Platelet (test code = Platelet) 180 133-450 [facility] CampusFwohoyfZEUFPYXMNJ5963-75-76 04:12:00 Test Item Value Reference Range Interpretation Comments MPV (test code = MPV) 8.3 7.4-10.4 [facility] CampusYarwjmdQQDXGLQLMK9949-27-79 04:12:00 Test Item Value Reference Range Interpretation Comments PTT (test code = PTT) 45.4 s 22.9-35.8 [facility] CampusPnzhhhjMCIDSHFIQB1096-50-48 04:12:00 Test Item Value Reference Range Interpretation Comments PT (test code = PT) 19.1 s 12.0-14.7 [facility] CampusEndxqmuBOOPFMQGCA9970-03-10 04:12:00 Test Item Value Reference Range Interpretation Comments INR (test code = INR) 1.62 1 0.85-1.17 [facility] CampusZhkkuwgBQSBMGLMRC8847-62-34 04:12:00 Test Item Value Reference Range Interpretation Comments RBC Morph (test code = See Note (11/24/21 RBC Morph) 11:12 PM) [facility] CampusGiicbecOWCPVTWVNO7933-48-23 04:12:00 Test Item Value Reference Range Interpretation Comments Plt Morph (test code = Normal (11/24/21 11:12 Plt Morph) PM) [place] [address]-06-28 04:12:00 Test Item Value Reference Range Interpretation Comments Segs (test code = Segs) 72.2 45.0-75.0 [place] 155092-06-28 04:12:00 Test Item Value Reference Range Interpretation Comments Lymphocytes (test code = Lymphocytes) 16.2 20.0-40.0 [place] 155092-06-28 04:12:00 Test Item Value Reference Range Interpretation Comments Monocytes (test code = Monocytes) 8.0 2.0-12.0 [place] 155092-06-28 04:12:00 Test Item Value Reference Range Interpretation Comments Eosinophils (test code = 2.7 See_Comment [A utomated message] The Eosinophils) system which ge nerated this result tra nsmitted reference range : <=4.0. The reference r samantha was not used to int erpret this result as normal/abnormal . [place] 155092-06-28 04:12:00 Test Item Value Reference Range Interpretation Comments Basophils (test code = 0.9 See_Comment [Aut omated message] The Basophils) system which ge nerated this result tra nsmitted reference range : <=1.0. The reference r samantha was not used to int erpret this result as normal/abnormal . [place] 155092-06-28 04:12:00 Test Item Value Reference Range Interpretation Comments Neutrophils # (test code = Neutrophils 2.9 1.5-8.1 #) [place] 155092-06-28 04:12:00 Test Item Value Reference Range Interpretation Comments Lymphocytes # (test code = Lymphocytes 0.7 1.0-5.5 #) [place] [address]-06-28 04:12:00 Test Item Value Reference Range Interpretation Comments Monocytes # (test code 0.3 See_Comment [Aut omated message] The = Monocytes #) system which generated this result tra nsmitted reference range : <=0.8. The reference r samantha was not used to int erpret this result as normal/abnormal . [place] 155092-06-28 04:12:00 Test Item Value Reference Range Interpretation Comments Eosinophils # (test code 0.1 See_Comment [A utomated message] The = Eosinophils #) system whic h generated this result tra nsmitted reference range : <=0.5. The reference r samantha was not used to int erpret this result as normal/abnormal . [facility] CenterIgtjggqLKBLFAABJE7876-84-49 04:12:00 Test Item Value Reference Range Interpretation Comments Anisocyte (test code = 1+ *ABN*(11/24/21 Anisocyte) 11:12 PM) [facility] CenterZyromkrCKSSHYTMMA8793-98-91 04:12:00 Test Item Value Reference Range Interpretation Comments Macrocyte (test code = 1+ *ABN*(11/24/21 Macrocyte) 11:12 PM) [facility] CenterHyvadzfEWLYRIIRVD1055-33-68 04:12:00 Test Item Value Reference Range Interpretation Comments Microcyte (test code = 1+ *ABN*(11/24/21 Microcyte) 11:12 PM) [facility] CenterDataFox ZLJPSJP3465-56-71 04:12:00 Test Item Value Reference Range Interpretation Comments ABO/Rh (test code = ABO/Rh) AB POS [facility] SUPR VYMEMJF3466-39-39 04:12:00 Test Item Value Reference Range Interpretation Comments Antibody Scrn (test Negative (11/24/21 code = Antibody Scrn) 11:12 PM) [facility] CenterPlayFirst IEGOSMV0557-34-89 04:12:00 Test Item Value Reference Range Interpretation Comments Total CK (test code = Total CK) 86 12-191 [facility] CenterStyleTech2022-[facility]28 04:12:00 Test Item Value Reference Range Interpretation Comments HS Troponin I (test code = HS Troponin 316 I) [facility] [employer]2022-06-28 04:12:00 Test Item Value Reference Range Interpretation Comments Glucose Lvl (test code = Glucose Lvl) 261 70-99 [facility] [employer]2022-06-28 04:12:00 Test Item Value Reference Range Interpretation Comments BUN (test code = BUN) 60 7-22 [facility] [employer]2022-06-28 04:12:00 Test Item Value Reference Range Interpretation Comments Creatinine Lvl (test code = Creatinine 8.49 0.50-1.40 Lvl) [facility] [employer]2022-06-28 04:12:00 Test Item Value Reference Range Interpretation Comments Sodium Lvl (test code = Sodium Lvl) 133 135-145 [place] 506282-06-28 04:12:00 Test Item Value Reference Range Interpretation Comments Potassium Lvl (test code = Potassium 4.9 3.5-5.1 Lvl) [place] 506282-06-28 04:12:00 Test Item Value Reference Range Interpretation Comments Chloride Lvl (test code = Chloride Lvl) 93 95-109 [place] 506282-06-28 04:12:00 Test Item Value Reference Range Interpretation Comments CO2 (test code = CO2) 31 24-32 [place] 506282-06-28 04:12:00 Test Item Value Reference Range Interpretation Comments Calcium Lvl (test code = Calcium Lvl) 9.1 8.5-10.5 [place] 506282-06-28 04:12:00 Test Item Value Reference Range Interpretation Comments Total Protein (test code = Total 6.8 6.4-8.4 Protein) [place] 506282-06-28 04:12:00 Test Item Value Reference Range Interpretation Comments Albumin Lvl (test code = Albumin Lvl) 2.5 3.5-5.0 [place] 506282-06-28 04:12:00 Test Item Value Reference Range Interpretation Comments ALT (test code = ALT) 51 See_Comment [Auto mated message] The system which ge nerated this result transmit swathi reference range : <=65. The reference range was not used to interpr et this result as deny l/abnormal. [place] 506282-06-28 04:12:00 Test Item Value Reference Range Interpretation Comments AST (test code = AST) 36 See_Comment [Auto mated message] The system which ge nerated this result transmit swathi reference range : <=37. The reference range was not used to interpr et this result as deny l/abnormal. [place] 506282-06-28 04:12:00 Test Item Value Reference Range Interpretation Comments Alk Phos (test code = Alk Phos) 383 39-136 [place] 506282-06-28 04:12:00 Test Item Value Reference Range Interpretation Comments Bili Total (test code = Bili Total) 1.1 0.2-1.3 [place] 506282-06-28 04:12:00 Test Item Value Reference Range Interpretation Comments AGAP (test code = AGAP) 13.9 10.0-20.0 [place] 506282-06-28 04:12:00 Test Item Value Reference Range Interpretation Comments B/C Ratio (test code = B/C Ratio) 7 1 6-25 [place] 506282-06-28 04:12:00 Test Item Value Reference Range Interpretation Comments Globulin (test code = Globulin) 4.3 2.7-4.2 [place] 506282-06-28 04:12:00 Test Item Value Reference Range Interpretation Comments A/G Ratio (test code = A/G Ratio) 0.6 1 0.7-1.6 [place] 506282-06-28 04:12:00 Test Item Value Reference Range Interpretation Comments eGFR (test code = eGFR) 5 [place] 506282-06-28 04:12:00 Test Item Value Reference Range Interpretation Comments Procalcitonin Lvl (test 0.69 See_Comment [Au tomated message] code = Procalcitonin Lvl) Th e system which generated this result transmitted ref erence range: <=0.10. The reference range was not used to interpr et this result as normal/abnormal . [facility] CampusNwemmgnOYYZMZHSJO0198-64-47 04:12:00 Test Item Value Reference Range Interpretation Comments WBC (test code = WBC) 4.1 3.7-10.4 [place] 155092-06-28 04:12:00 Test Item Value Reference Range Interpretation Comments RBC (test code = RBC) 1.78 4.70-6.10 [place] 155092-06-28 04:12:00 Test Item Value Reference Range Interpretation Comments Hgb (test code = Hgb) 6.5 14.0-18.0 [place] 155092-06-28 04:12:00 Test Item Value Reference Range Interpretation Comments Hct (test code = Hct) 19.5 42.0-54.0 [place] 155092-06-28 04:12:00 Test Item Value Reference Range Interpretation Comments MCV (test code = MCV) 110.0 80.0-94.0 [place] 155092-06-28 04:12:00 Test Item Value Reference Range Interpretation Comments MCH (test code = MCH) 36.5 pg 27.0-31.0 [facility] CampusYwmbvudXECCAHWYQG7147-06-64 04:12:00 Test Item Value Reference Range Interpretation Comments MCHC (test code = MCHC) 33.2 32.0-36.0 [facility] CampusPxkybzmKATDTGTRER6306-46-56 04:12:00 Test Item Value Reference Range Interpretation Comments RDW (test code = RDW) 19.0 11.5-14.5 [facility] CampusDayfxolMKKDCDCNHY5750-64-98 04:12:00 Test Item Value Reference Range Interpretation Comments Platelet (test code = Platelet) 180 133-450 [facility] CampusHwhpgbdKJKTDXLIOM1717-66-03 04:12:00 Test Item Value Reference Range Interpretation Comments MPV (test code = MPV) 8.3 7.4-10.4 [facility] CampusJptpahmVQIFZIJWAI9544-85-00 04:12:00 Test Item Value Reference Range Interpretation Comments PTT (test code = PTT) 45.4 s 22.9-35.8 [facility] CampusSklwcwwRHHHEAVPGZ9750-50-83 04:12:00 Test Item Value Reference Range Interpretation Comments PT (test code = PT) 19.1 s 12.0-14.7 [facility] CampusQuatwvzTWTGFFJHOH1313-35-63 04:12:00 Test Item Value Reference Range Interpretation Comments INR (test code = INR) 1.62 1 0.85-1.17 [facility] CampusWgqqyrsNZYBUAUWYL4380-49-89 04:12:00 Test Item Value Reference Range Interpretation Comments RBC Morph (test code = See Note (11/24/21 RBC Morph) 11:12 PM) [facility] CampusIssvkxsPWSAIHWKOF1064-73-32 04:12:00 Test Item Value Reference Range Interpretation Comments Plt Morph (test code = Normal (11/24/21 11:12 Plt Morph) PM) [facility] CampusCuaznozYVLZXIWAUQ0609-48-57 04:12:00 Test Item Value Reference Range Interpretation Comments Segs (test code = Segs) 72.2 45.0-75.0 [facility] CampusPelvtxhAHABCLOQYR0235-64-49 04:12:00 Test Item Value Reference Range Interpretation Comments Lymphocytes (test code = Lymphocytes) 16.2 20.0-40.0 [facility] CampusUnbgeurHLNAMSJYNN8274-87-32 04:12:00 Test Item Value Reference Range Interpretation Comments Monocytes (test code = Monocytes) 8.0 2.0-12.0 [place] [address]-06-28 04:12:00 Test Item Value Reference Range Interpretation Comments Eosinophils (test code = 2.7 See_Comment [A utomated message] The Eosinophils) system which ge nerated this result tra nsmitted reference range : <=4.0. The reference r samantha was not used to int erpret this result as normal/abnormal . [place] 155092-06-28 04:12:00 Test Item Value Reference Range Interpretation Comments Basophils (test code = 0.9 See_Comment [Aut omated message] The Basophils) system which ge nerated this result tra nsmitted reference range : <=1.0. The reference r samantha was not used to int erpret this result as normal/abnormal . [place] 155092-06-28 04:12:00 Test Item Value Reference Range Interpretation Comments Neutrophils # (test code = Neutrophils 2.9 1.5-8.1 #) [place] [address]-06-28 04:12:00 Test Item Value Reference Range Interpretation Comments Lymphocytes # (test code = Lymphocytes 0.7 1.0-5.5 #) [place] [address]-06-28 04:12:00 Test Item Value Reference Range Interpretation Comments Monocytes # (test code 0.3 See_Comment [Aut omated message] The = Monocytes #) system which generated this result tra nsmitted reference range : <=0.8. The reference r samantha was not used to int erpret this result as normal/abnormal . [place] 155092-06-28 04:12:00 Test Item Value Reference Range Interpretation Comments Eosinophils # (test code 0.1 See_Comment [A utomated message] The = Eosinophils #) system whic h generated this result tra nsmitted reference range : <=0.5. The reference r samantha was not used to int erpret this result as normal/abnormal . [place] 155092-06-28 04:12:00 Test Item Value Reference Range Interpretation Comments Anisocyte (test code = 1+ *ABN*(11/24/21 Anisocyte) 11:12 PM) [place] 155092-06-28 04:12:00 Test Item Value Reference Range Interpretation Comments Macrocyte (test code = 1+ *ABN*(11/24/21 Macrocyte) 11:12 PM) [facility] CenterXavroqbWLYIHWVTMG1122-95-09 04:12:00 Test Item Value Reference Range Interpretation Comments Microcyte (test code = 1+ *ABN*(11/24/21 Microcyte) 11:12 PM) [facility] SUPR NNBBEHJ3903-59-74 04:12:00 Test Item Value Reference Range Interpretation Comments ABO/Rh (test code = ABO/Rh) AB POS [facility] SUPR [id number] 04:12:00 Test Item Value Reference Range Interpretation Comments Antibody Scrn (test Negative (11/24/21 code = Antibody Scrn) 11:12 PM) [facility] CenterPlayFirst [id number] 04:12:00 Test Item Value Reference Range Interpretation Comments Total CK (test code = Total CK) 86 12-191 [facility] CenterzeeWAVES LHLRGIZ2234-00-84 04:12:00 Test Item Value Reference Range Interpretation Comments HS Troponin I (test code = HS Troponin 316 I) [facility] [employer] YQYUR3376-41-36 04:12:00 Test Item Value Reference Range Interpretation Comments Glucose Lvl (test code = Glucose Lvl) 261 70-99 [facility] [employer]2022-06-28 04:12:00 Test Item Value Reference Range Interpretation Comments BUN (test code = BUN) 60 7-22 [facility] [employer]2022-06-28 04:12:00 Test Item Value Reference Range Interpretation Comments Creatinine Lvl (test code = Creatinine 8.49 0.50-1.40 Lvl) [facility] [employer]2022-06-28 04:12:00 Test Item Value Reference Range Interpretation Comments Sodium Lvl (test code = Sodium Lvl) 133 135-145 [facility] [employer]2022-06-28 04:12:00 Test Item Value Reference Range Interpretation Comments Potassium Lvl (test code = Potassium 4.9 3.5-5.1 Lvl) [facility] [employer]2022-06-28 04:12:00 Test Item Value Reference Range Interpretation Comments Chloride Lvl (test code = Chloride Lvl) 93 95-109 [facility] [employer]2022-06-28 04:12:00 Test Item Value Reference Range Interpretation Comments CO2 (test code = CO2) 31 24-32 [place] 506282-06-28 04:12:00 Test Item Value Reference Range Interpretation Comments Calcium Lvl (test code = Calcium Lvl) 9.1 8.5-10.5 [place] 506282-06-28 04:12:00 Test Item Value Reference Range Interpretation Comments Total Protein (test code = Total 6.8 6.4-8.4 Protein) [place] 506282-06-28 04:12:00 Test Item Value Reference Range Interpretation Comments Albumin Lvl (test code = Albumin Lvl) 2.5 3.5-5.0 [place] 506282-06-28 04:12:00 Test Item Value Reference Range Interpretation Comments ALT (test code = ALT) 51 See_Comment [Auto mated message] The system which ge nerated this result transmit swathi reference range : <=65. The reference range was not used to interpr et this result as deny l/abnormal. [place] 506282-06-28 04:12:00 Test Item Value Reference Range Interpretation Comments AST (test code = AST) 36 See_Comment [Auto mated message] The system which ge nerated this result transmit swathi reference range : <=37. The reference range was not used to interpr et this result as deny l/abnormal. [place] 506282-06-28 04:12:00 Test Item Value Reference Range Interpretation Comments Alk Phos (test code = Alk Phos) 383 39-136 [place] 506282-06-28 04:12:00 Test Item Value Reference Range Interpretation Comments Bili Total (test code = Bili Total) 1.1 0.2-1.3 [place] 506282-06-28 04:12:00 Test Item Value Reference Range Interpretation Comments AGAP (test code = AGAP) 13.9 10.0-20.0 [place] 506282-06-28 04:12:00 Test Item Value Reference Range Interpretation Comments B/C Ratio (test code = B/C Ratio) 7 1 6-25 [place] 506282-06-28 04:12:00 Test Item Value Reference Range Interpretation Comments Globulin (test code = Globulin) 4.3 2.7-4.2 [facility]2022-06-28 04:12:00 Test Item Value Reference Range Interpretation Comments A/G Ratio (test code = A/G Ratio) 0.6 1 0.7-1.6 [facility]2022-06-28 04:12:00 Test Item Value Reference Range Interpretation Comments eGFR (test code = eGFR) 5 [facility]2022-06-28 04:12:00 Test Item Value Reference Range Interpretation Comments Procalcitonin Lvl (test 0.69 See_Comment [Au tomated message] code = Procalcitonin Lvl) Th e system which generated this result transmitted ref erence range: <=0.10. The reference range was not used to interpr et this result as normal/abnormal . [facility] CampusBwrxxdhXZYFMQFVWW2574-49-48 04:12:00 Test Item Value Reference Range Interpretation Comments WBC (test code = WBC) 4.1 3.7-10.4 [facility] CampusSbbtzqxVOCLJYAKZF0526-97-90 04:12:00 Test Item Value Reference Range Interpretation Comments RBC (test code = RBC) 1.78 4.70-6.10 [facility] CampusUjrjznyVOPFYCBCDM5623-04-77 04:12:00 Test Item Value Reference Range Interpretation Comments Hgb (test code = Hgb) 6.5 14.0-18.0 [facility] CampusMghptrlCWVCEHTURU3399-26-27 04:12:00 Test Item Value Reference Range Interpretation Comments Hct (test code = Hct) 19.5 42.0-54.0 [place] 155092-06-28 04:12:00 Test Item Value Reference Range Interpretation Comments MCV (test code = MCV) 110.0 80.0-94.0 [place] 155092-06-28 04:12:00 Test Item Value Reference Range Interpretation Comments MCH (test code = MCH) 36.5 pg 27.0-31.0 [facility] CampusPyuppbyUOHSNOBOWC0510-76-54 04:12:00 Test Item Value Reference Range Interpretation Comments MCHC (test code = MCHC) 33.2 32.0-36.0 [facility] CampusTffdyunKCUZAMHUYZ7442-70-13 04:12:00 Test Item Value Reference Range Interpretation Comments RDW (test code = RDW) 19.0 11.5-14.5 [place] 155092-06-28 04:12:00 Test Item Value Reference Range Interpretation Comments Platelet (test code = Platelet) 180 133-450 [facility] CampusBlwinixNHZVTGTVFO1624-08-28 04:12:00 Test Item Value Reference Range Interpretation Comments MPV (test code = MPV) 8.3 7.4-10.4 [facility] CampusPbezqzrIMMMAHYRLV2023-44-74 04:12:00 Test Item Value Reference Range Interpretation Comments PTT (test code = PTT) 45.4 s 22.9-35.8 [place] 155092-06-28 04:12:00 Test Item Value Reference Range Interpretation Comments PT (test code = PT) 19.1 s 12.0-14.7 [place] 155092-06-28 04:12:00 Test Item Value Reference Range Interpretation Comments INR (test code = INR) 1.62 1 0.85-1.17 [place] 155092-06-28 04:12:00 Test Item Value Reference Range Interpretation Comments RBC Morph (test code = See Note (11/24/21 RBC Morph) 11:12 PM) [facility] CampusVbdbgkvCVVBNQLKVU6459-88-39 04:12:00 Test Item Value Reference Range Interpretation Comments Plt Morph (test code = Normal (11/24/21 11:12 Plt Morph) PM) [facility] CampusQhpoesaQHTNMELSXB2648-26-54 04:12:00 Test Item Value Reference Range Interpretation Comments Segs (test code = Segs) 72.2 45.0-75.0 [facility] CampusEeuajwjFQSPZOQGFS3087-74-73 04:12:00 Test Item Value Reference Range Interpretation Comments Lymphocytes (test code = Lymphocytes) 16.2 20.0-40.0 [place] 155092-06-28 04:12:00 Test Item Value Reference Range Interpretation Comments Monocytes (test code = Monocytes) 8.0 2.0-12.0 [place] 155092-06-28 04:12:00 Test Item Value Reference Range Interpretation Comments Eosinophils (test code = 2.7 See_Comment [A utomated message] The Eosinophils) system which ge nerated this result tra nsmitted reference range : <=4.0. The reference r samantha was not used to int erpret this result as normal/abnormal . [facility] CampusQuzbmghIVUTTCCLKS1904-49-61 04:12:00 Test Item Value Reference Range Interpretation Comments Basophils (test code = 0.9 See_Comment [Aut omated message] The Basophils) system which ge nerated this result tra nsmitted reference range : <=1.0. The reference r samantha was not used to int erpret this result as normal/abnormal . [facility] CampusWscquslYIICZJYNBM3686-20-26 04:12:00 Test Item Value Reference Range Interpretation Comments Neutrophils # (test code = Neutrophils 2.9 1.5-8.1 #) [facility] CampusToqoiimTFJEZTCUNN9319-82-97 04:12:00 Test Item Value Reference Range Interpretation Comments Lymphocytes # (test code = Lymphocytes 0.7 1.0-5.5 #) [facility] CampusMdlxoseVDXCBHTMDX2730-51-44 04:12:00 Test Item Value Reference Range Interpretation Comments Monocytes # (test code 0.3 See_Comment [Aut omated message] The = Monocytes #) system which generated this result tra nsmitted reference range : <=0.8. The reference r samantha was not used to int erpret this result as normal/abnormal . [facility] CampusMghcgtqNMXWRZGXNJ6025-57-26 04:12:00 Test Item Value Reference Range Interpretation Comments Eosinophils # (test code 0.1 See_Comment [A utomated message] The = Eosinophils #) system whic h generated this result tra nsmitted reference range : <=0.5. The reference r samantha was not used to int erpret this result as normal/abnormal . [facility] CampusNyyucviLJOPKOJBNJ2417-87-14 04:12:00 Test Item Value Reference Range Interpretation Comments Anisocyte (test code = 1+ *ABN*(11/24/21 Anisocyte) 11:12 PM) [facility]SjistoaZSAUAWJQGE3703-09-02 04:12:00 Test Item Value Reference Range Interpretation Comments Macrocyte (test code = 1+ *ABN*(11/24/21 Macrocyte) 11:12 PM) [facility] CampusSdlczipZAZASCWQGY5870-61-62 04:12:00 Test Item Value Reference Range Interpretation Comments Microcyte (test code = 1+ *ABN*(11/24/21 Microcyte) 11:12 PM) [facility] BANK [id number] 04:12:00 Test Item Value Reference Range Interpretation Comments ABO/Rh (test code = ABO/Rh) AB POS [facility] [employer] BANK [id number] 04:12:00 Test Item Value Reference Range Interpretation Comments Antibody Scrn (test Negative (11/24/21 code = Antibody Scrn) 11:12 PM) [facility] [employer] [id number] 04:12:00 Test Item Value Reference Range Interpretation Comments Total CK (test code = Total CK) 86 12-191 [facility] [employer] [id number] 04:12:00 Test Item Value Reference Range Interpretation Comments HS Troponin I (test code = HS Troponin 316 I) [facility] [employer] [id number] 04:12:00 Test Item Value Reference Range Interpretation Comments Glucose Lvl (test code = Glucose Lvl) 261 70-99 [facility] [employer] [id number] 04:12:00 Test Item Value Reference Range Interpretation Comments BUN (test code = BUN) 60 7-22 [facility] [employer] [id number] 04:12:00 Test Item Value Reference Range Interpretation Comments Creatinine Lvl (test code = Creatinine 8.49 0.50-1.40 Lvl) [facility] [employer] [id number] 04:12:00 Test Item Value Reference Range Interpretation Comments Sodium Lvl (test code = Sodium Lvl) 133 135-145 [facility] [employer] [id number] 04:12:00 Test Item Value Reference Range Interpretation Comments Potassium Lvl (test code = Potassium 4.9 3.5-5.1 Lvl) [facility] [employer] [id number] 04:12:00 Test Item Value Reference Range Interpretation Comments Chloride Lvl (test code = Chloride Lvl) 93 95-109 [facility] [employer] [id number] 04:12:00 Test Item Value Reference Range Interpretation Comments CO2 (test code = CO2) 31 24-32 [facility] [employer] [id number] 04:12:00 Test Item Value Reference Range Interpretation Comments Calcium Lvl (test code = Calcium Lvl) 9.1 8.5-10.5 [facility] [employer] [id number] 04:12:00 Test Item Value Reference Range Interpretation Comments Total Protein (test code = Total 6.8 6.4-8.4 Protein) [facility] [employer] [id number] 04:12:00 Test Item Value Reference Range Interpretation Comments Albumin Lvl (test code = Albumin Lvl) 2.5 3.5-5.0 [place] 506282-06-28 04:12:00 Test Item Value Reference Range Interpretation Comments ALT (test code = ALT) 51 See_Comment [Auto mated message] The system which ge nerated this result transmit swathi reference range : <=65. The reference range was not used to interpr et this result as deny l/abnormal. [facility] [id number] 04:12:00 Test Item Value Reference Range Interpretation Comments AST (test code = AST) 36 See_Comment [Auto mated message] The system which ge nerated this result transmit swathi reference range : <=37. The reference range was not used to interpr et this result as deny l/abnormal. [place] 506282-06-28 04:12:00 Test Item Value Reference Range Interpretation Comments Alk Phos (test code = Alk Phos) 383 39-136 [facility] [id number] 04:12:00 Test Item Value Reference Range Interpretation Comments Bili Total (test code = Bili Total) 1.1 0.2-1.3 [facility] [id number] 04:12:00 Test Item Value Reference Range Interpretation Comments AGAP (test code = AGAP) 13.9 10.0-20.0 [facility] [id number] 04:12:00 Test Item Value Reference Range Interpretation Comments B/C Ratio (test code = B/C Ratio) 7 1 6-25 [facility] [id number] 04:12:00 Test Item Value Reference Range Interpretation Comments Globulin (test code = Globulin) 4.3 2.7-4.2 [facility] [id number] 04:12:00 Test Item Value Reference Range Interpretation Comments A/G Ratio (test code = A/G Ratio) 0.6 1 0.7-1.6 [facility] [id number] 04:12:00 Test Item Value Reference Range Interpretation Comments eGFR (test code = eGFR) 5 [facility] [id number] 04:12:00 Test Item Value Reference Range Interpretation Comments Procalcitonin Lvl (test 0.69 See_Comment [Au tomated message] code = Procalcitonin Lvl) Th e system which generated this result transmitted ref erence range: <=0.10. The reference range was not used to interpr et this result as normal/abnormal . [facility] C[id number] 04:12:00 Test Item Value Reference Range Interpretation Comments WBC (test code = WBC) 4.1 3.7-10.4 [facility] CampusTxniyjqBJTOSYHIIU7415-09-39 04:12:00 Test Item Value Reference Range Interpretation Comments RBC (test code = RBC) 1.78 4.70-6.10 [facility] CampusCuizcuuCLSYYCVWVR0674-72-66 04:12:00 Test Item Value Reference Range Interpretation Comments Hgb (test code = Hgb) 6.5 14.0-18.0 [facility] CampusDtcwgxqRPYTFIYQDO5965-31-00 04:12:00 Test Item Value Reference Range Interpretation Comments Hct (test code = Hct) 19.5 42.0-54.0 [facility] CampusHdfmrbpVCYIVTHEVQ0798-37-29 04:12:00 Test Item Value Reference Range Interpretation Comments MCV (test code = MCV) 110.0 80.0-94.0 [facility] CampusEnflvntBMZRCOQQCM2406-14-86 04:12:00 Test Item Value Reference Range Interpretation Comments MCH (test code = MCH) 36.5 pg 27.0-31.0 [facility] CampusUlrjftjQQYFLJLRJH5096-86-51 04:12:00 Test Item Value Reference Range Interpretation Comments MCHC (test code = MCHC) 33.2 32.0-36.0 [facility] CampusDxnowekZFTDLKMLBX5509-53-08 04:12:00 Test Item Value Reference Range Interpretation Comments RDW (test code = RDW) 19.0 11.5-14.5 [facility] CampusMaltadlSVHIYDDWRI8284-71-01 04:12:00 Test Item Value Reference Range Interpretation Comments Platelet (test code = Platelet) 180 133-450 [facility] CampusAbewwbfGTCVFYVJJD9401-20-43 04:12:00 Test Item Value Reference Range Interpretation Comments MPV (test code = MPV) 8.3 7.4-10.4 [facility] CampusCzthzxeQEKOFQEXEZ4904-94-13 04:12:00 Test Item Value Reference Range Interpretation Comments PTT (test code = PTT) 45.4 s 22.9-35.8 [facility] CampusDprlbpyXLBOHKBOKU9051-47-63 04:12:00 Test Item Value Reference Range Interpretation Comments PT (test code = PT) 19.1 s 12.0-14.7 [facility] CampusTyoeyplCGGHPZKQUS1175-39-82 04:12:00 Test Item Value Reference Range Interpretation Comments INR (test code = INR) 1.62 1 0.85-1.17 [facility] CampusRpebsukAYQQAQPYZJ6921-23-65 04:12:00 Test Item Value Reference Range Interpretation Comments RBC Morph (test code = See Note (11/24/21 RBC Morph) 11:12 PM) [facility] CampusIhiqegoKYGXZOMWVG6844-89-42 04:12:00 Test Item Value Reference Range Interpretation Comments Plt Morph (test code = Normal (11/24/21 11:12 Plt Morph) PM) [place] 155092-06-28 04:12:00 Test Item Value Reference Range Interpretation Comments Segs (test code = Segs) 72.2 45.0-75.0 [facility] CampusKrbqaazCEXLLHCDDE2205-82-07 04:12:00 Test Item Value Reference Range Interpretation Comments Lymphocytes (test code = Lymphocytes) 16.2 20.0-40.0 [facility] CampusRhoxgbgUNVFCAIHOA9295-07-94 04:12:00 Test Item Value Reference Range Interpretation Comments Monocytes (test code = Monocytes) 8.0 2.0-12.0 [facility] CampusHaavsvvIELLVHKTMV4691-14-64 04:12:00 Test Item Value Reference Range Interpretation Comments Eosinophils (test code = 2.7 See_Comment [A utomated message] The Eosinophils) system which ge nerated this result tra nsmitted reference range : <=4.0. The reference r samantha was not used to int erpret this result as normal/abnormal . [facility] CampusVybmlhzIHODBSRRFM0504-67-01 04:12:00 Test Item Value Reference Range Interpretation Comments Basophils (test code = 0.9 See_Comment [Aut omated message] The Basophils) system which ge nerated this result tra nsmitted reference range : <=1.0. The reference r samantha was not used to int erpret this result as normal/abnormal . [place] 155092-06-28 04:12:00 Test Item Value Reference Range Interpretation Comments Neutrophils # (test code = Neutrophils 2.9 1.5-8.1 #) [facility] CampusYufabiiFMYVXEGCDZ1440-04-62 04:12:00 Test Item Value Reference Range Interpretation Comments Lymphocytes # (test code = Lymphocytes 0.7 1.0-5.5 #) [facility] CampusTnehxdfRWKKLRUOBR0921-63-62 04:12:00 Test Item Value Reference Range Interpretation Comments Monocytes # (test code 0.3 See_Comment [Aut omated message] The = Monocytes #) system which generated this result tra nsmitted reference range : <=0.8. The reference r samantha was not used to int erpret this result as normal/abnormal . [facility] CampusJxniqruJQBIGWUMAN5760-67-06 04:12:00 Test Item Value Reference Range Interpretation Comments Eosinophils # (test code 0.1 See_Comment [A utomated message] The = Eosinophils #) system whic h generated this result tra nsmitted reference range : <=0.5. The reference r samantha was not used to int erpret this result as normal/abnormal . [facility] CampusJdgylxzRXWERKSHBI1176-86-33 04:12:00 Test Item Value Reference Range Interpretation Comments Anisocyte (test code = 1+ *ABN*(11/24/21 Anisocyte) 11:12 PM) [facility]YqvgfyrOAEONDUDZW7173-59-85 04:12:00 Test Item Value Reference Range Interpretation Comments Macrocyte (test code = 1+ *ABN*(11/24/21 Macrocyte) 11:12 PM) [facility] CampusFrddaduVHHZPJSNFH3120-59-46 04:12:00 Test Item Value Reference Range Interpretation Comments Microcyte (test code = 1+ *ABN*(11/24/21 Microcyte) 11:12 PM) [facility]Data[facility] [id number] 04:12:00 Test Item Value Reference Range Interpretation Comments ABO/Rh (test code = ABO/Rh) AB POS [facility]Data[facility] [id number] 04:12:00 Test Item Value Reference Range Interpretation Comments Antibody Scrn (test Negative (11/24/21 code = Antibody Scrn) 11:12 PM) [facility] CenterN[facility] Medical [id number] 04:12:00 Test Item Value Reference Range Interpretation Comments Total CK (test code = Total CK) 86 12-191 [facility] CenternuMVCTWIN [facility] [id number] 04:12:00 Test Item Value Reference Range Interpretation Comments HS Troponin I (test code = HS Troponin 316 I) [place] 506282-06-28 04:12:00 Test Item Value Reference Range Interpretation Comments Glucose Lvl (test code = Glucose Lvl) 261 70-99 [place] 506282-06-28 04:12:00 Test Item Value Reference Range Interpretation Comments BUN (test code = BUN) 60 7-22 [place] 506282-06-28 04:12:00 Test Item Value Reference Range Interpretation Comments Creatinine Lvl (test code = Creatinine 8.49 0.50-1.40 Lvl) [place] 506282-06-28 04:12:00 Test Item Value Reference Range Interpretation Comments Sodium Lvl (test code = Sodium Lvl) 133 135-145 [place] 506282-06-28 04:12:00 Test Item Value Reference Range Interpretation Comments Potassium Lvl (test code = Potassium 4.9 3.5-5.1 Lvl) [place] 506282-06-28 04:12:00 Test Item Value Reference Range Interpretation Comments Chloride Lvl (test code = Chloride Lvl) 93 95-109 [place] 506282-06-28 04:12:00 Test Item Value Reference Range Interpretation Comments CO2 (test code = CO2) 31 24-32 [place] 506282-06-28 04:12:00 Test Item Value Reference Range Interpretation Comments Calcium Lvl (test code = Calcium Lvl) 9.1 8.5-10.5 [place] 506282-06-28 04:12:00 Test Item Value Reference Range Interpretation Comments Total Protein (test code = Total 6.8 6.4-8.4 Protein) [place] 506282-06-28 04:12:00 Test Item Value Reference Range Interpretation Comments Albumin Lvl (test code = Albumin Lvl) 2.5 3.5-5.0 [place] 506282-06-28 04:12:00 Test Item Value Reference Range Interpretation Comments ALT (test code = ALT) 51 See_Comment [Auto mated message] The system which ge nerated this result transmit swathi reference range : <=65. The reference range was not used to interpr et this result as deny l/abnormal. [place] 506282-06-28 04:12:00 Test Item Value Reference Range Interpretation Comments AST (test code = AST) 36 See_Comment [Auto mated message] The system which ge nerated this result transmit swathi reference range : <=37. The reference range was not used to interpr et this result as deny l/abnormal. [facility]2022-06-28 04:12:00 Test Item Value Reference Range Interpretation Comments Alk Phos (test code = Alk Phos) 383 39-136 [facility] CenterY[facility] Technologies [id number] 04:12:00 Test Item Value Reference Range Interpretation Comments Bili Total (test code = Bili Total) 1.1 0.2-1.3 [facility] CenterDispatch [id number] 04:12:00 Test Item Value Reference Range Interpretation Comments AGAP (test code = AGAP) 13.9 10.0-20.0 [facility] CenterTarsa TherapeuticsHEATHER VILLE [id number] 04:12:00 Test Item Value Reference Range Interpretation Comments B/C Ratio (test code = B/C Ratio) 7 1 6-25 [place] 506282-06-28 04:12:00 Test Item Value Reference Range Interpretation Comments Globulin (test code = Globulin) 4.3 2.7-4.2 [facility] CenterDispatch [id number] 04:12:00 Test Item Value Reference Range Interpretation Comments A/G Ratio (test code = A/G Ratio) 0.6 1 0.7-1.6 [place] 506282-06-28 04:12:00 Test Item Value Reference Range Interpretation Comments eGFR (test code = eGFR) 5 [place] 506282-06-28 04:12:00 Test Item Value Reference Range Interpretation Comments Procalcitonin Lvl (test 0.69 See_Comment [Au tomated message] code = Procalcitonin Lvl) Th e system which generated this result transmitted ref erence range: <=0.10. The reference range was not used to interpr et this result as normal/abnormal . [place] 155092-06-28 04:12:00 Test Item Value Reference Range Interpretation Comments WBC (test code = WBC) 4.1 3.7-10.4 [place] 155092-06-28 04:12:00 Test Item Value Reference Range Interpretation Comments RBC (test code = RBC) 1.78 4.70-6.10 [facility] CampusYbwrzxdNZKUVNXHBN6842-69-36 04:12:00 Test Item Value Reference Range Interpretation Comments Hgb (test code = Hgb) 6.5 14.0-18.0 [facility] CampusFjsqqpgLNGXXNOJZB5698-52-35 04:12:00 Test Item Value Reference Range Interpretation Comments Hct (test code = Hct) 19.5 42.0-54.0 [facility] CampusZjrdnrnYHRLTVSTTB8411-50-25 04:12:00 Test Item Value Reference Range Interpretation Comments MCV (test code = MCV) 110.0 80.0-94.0 [facility] CampusQtmvfzvEWATBLLEAX2645-14-95 04:12:00 Test Item Value Reference Range Interpretation Comments MCH (test code = MCH) 36.5 pg 27.0-31.0 [facility] CampusYnmijfgFUFTMHZVTK5652-65-63 04:12:00 Test Item Value Reference Range Interpretation Comments MCHC (test code = MCHC) 33.2 32.0-36.0 [facility] CampusPvdossbQVFUNVYFHW0786-70-10 04:12:00 Test Item Value Reference Range Interpretation Comments RDW (test code = RDW) 19.0 11.5-14.5 [facility] CampusFnhdnouMIJJKLRORR4336-04-76 04:12:00 Test Item Value Reference Range Interpretation Comments Platelet (test code = Platelet) 180 133-450 [facility] CampusBezpchfRJVBERDFNH6896-07-21 04:12:00 Test Item Value Reference Range Interpretation Comments MPV (test code = MPV) 8.3 7.4-10.4 [facility] CampusXcqydsrRFYEGHWTWP7724-41-31 04:12:00 Test Item Value Reference Range Interpretation Comments PTT (test code = PTT) 45.4 s 22.9-35.8 [facility] CampusRfureuyNTHRZFBBNN4281-38-80 04:12:00 Test Item Value Reference Range Interpretation Comments PT (test code = PT) 19.1 s 12.0-14.7 [facility] CampusYgifxcxABHTITTAVQ7698-75-18 04:12:00 Test Item Value Reference Range Interpretation Comments INR (test code = INR) 1.62 1 0.85-1.17 [facility] CampusQdujbxmEMXFYBTYIV7001-98-62 04:12:00 Test Item Value Reference Range Interpretation Comments RBC Morph (test code = See Note (11/24/21 RBC Morph) 11:12 PM) [facility] CampusKcdwizkQISSOJFFAX2851-19-47 04:12:00 Test Item Value Reference Range Interpretation Comments Plt Morph (test code = Normal (11/24/21 11:12 Plt Morph) PM) [place] 155092-06-28 04:12:00 Test Item Value Reference Range Interpretation Comments Segs (test code = Segs) 72.2 45.0-75.0 [place] [address]-06-28 04:12:00 Test Item Value Reference Range Interpretation Comments Lymphocytes (test code = Lymphocytes) 16.2 20.0-40.0 [place] [address]-06-28 04:12:00 Test Item Value Reference Range Interpretation Comments Monocytes (test code = Monocytes) 8.0 2.0-12.0 [place] [address]-06-28 04:12:00 Test Item Value Reference Range Interpretation Comments Eosinophils (test code = 2.7 See_Comment [A utomated message] The Eosinophils) system which ge nerated this result tra nsmitted reference range : <=4.0. The reference r samantha was not used to int erpret this result as normal/abnormal . [facility] CampusLigevneVUJAUZPOMG9494-02-40 04:12:00 Test Item Value Reference Range Interpretation Comments Basophils (test code = 0.9 See_Comment [Aut omated message] The Basophils) system which ge nerated this result tra nsmitted reference range : <=1.0. The reference r samantha was not used to int erpret this result as normal/abnormal . [facility] CampusNfbhiklYWDHXAJTFI9941-35-64 04:12:00 Test Item Value Reference Range Interpretation Comments Neutrophils # (test code = Neutrophils 2.9 1.5-8.1 #) [facility] CampusLosgroaMKNWARXLKV3299-19-96 04:12:00 Test Item Value Reference Range Interpretation Comments Lymphocytes # (test code = Lymphocytes 0.7 1.0-5.5 #) [place] [address]-06-28 04:12:00 Test Item Value Reference Range Interpretation Comments Monocytes # (test code 0.3 See_Comment [Aut omated message] The = Monocytes #) system which generated this result tra nsmitted reference range : <=0.8. The reference r samantha was not used to int erpret this result as normal/abnormal . [place] 155092-06-28 04:12:00 Test Item Value Reference Range Interpretation Comments Eosinophils # (test code 0.1 See_Comment [A utomated message] The = Eosinophils #) system whic h generated this result tra nsmitted reference range : <=0.5. The reference r samantha was not used to int erpret this result as normal/abnormal . [facility] CenterVwpghrbSVROBIZHFG7718-10-10 04:12:00 Test Item Value Reference Range Interpretation Comments Anisocyte (test code = 1+ *ABN*(11/24/21 Anisocyte) 11:12 PM) [facility] CenterSezdlhhPSLDCWCYYG9630-45-05 04:12:00 Test Item Value Reference Range Interpretation Comments Macrocyte (test code = 1+ *ABN*(11/24/21 Macrocyte) 11:12 PM) [facility] CenterZfnflikCVVPZYNOHR9086-19-71 04:12:00 Test Item Value Reference Range Interpretation Comments Microcyte (test code = 1+ *ABN*(11/24/21 Microcyte) 11:12 PM) [facility] [employer] [id number] 04:12:00 Test Item Value Reference Range Interpretation Comments ABO/Rh (test code = ABO/Rh) AB POS [facility] [employer] [id number] 04:12:00 Test Item Value Reference Range Interpretation Comments Antibody Scrn (test Negative (11/24/21 code = Antibody Scrn) 11:12 PM) [facility] [employer]2022-06-28 04:12:00 Test Item Value Reference Range Interpretation Comments Total CK (test code = Total CK) 86 12-191 [facility] [employer]2022-06-28 04:12:00 Test Item Value Reference Range Interpretation Comments HS Troponin I (test code = HS Troponin 316 I) [facility]2022-06-28 04:12:00 Test Item Value Reference Range Interpretation Comments Glucose Lvl (test code = Glucose Lvl) 261 70-99 [facility]2022-06-28 04:12:00 Test Item Value Reference Range Interpretation Comments BUN (test code = BUN) 60 7-22 [facility]2022-06-28 04:12:00 Test Item Value Reference Range Interpretation Comments Creatinine Lvl (test code = Creatinine 8.49 0.50-1.40 Lvl) [place] 506282-06-28 04:12:00 Test Item Value Reference Range Interpretation Comments Sodium Lvl (test code = Sodium Lvl) 133 135-145 [place] 506282-06-28 04:12:00 Test Item Value Reference Range Interpretation Comments Potassium Lvl (test code = Potassium 4.9 3.5-5.1 Lvl) [place] 506282-06-28 04:12:00 Test Item Value Reference Range Interpretation Comments Chloride Lvl (test code = Chloride Lvl) 93 95-109 [place] 506282-06-28 04:12:00 Test Item Value Reference Range Interpretation Comments CO2 (test code = CO2) 31 24-32 [place] 506282-06-28 04:12:00 Test Item Value Reference Range Interpretation Comments Calcium Lvl (test code = Calcium Lvl) 9.1 8.5-10.5 [place] 506282-06-28 04:12:00 Test Item Value Reference Range Interpretation Comments Total Protein (test code = Total 6.8 6.4-8.4 Protein) [place] 506282-06-28 04:12:00 Test Item Value Reference Range Interpretation Comments Albumin Lvl (test code = Albumin Lvl) 2.5 3.5-5.0 [place] 506282-06-28 04:12:00 Test Item Value Reference Range Interpretation Comments ALT (test code = ALT) 51 See_Comment [Auto mated message] The system which ge nerated this result transmit swathi reference range : <=65. The reference range was not used to interpr et this result as deny l/abnormal. [place] 506282-06-28 04:12:00 Test Item Value Reference Range Interpretation Comments AST (test code = AST) 36 See_Comment [Auto mated message] The system which ge nerated this result transmit swathi reference range : <=37. The reference range was not used to interpr et this result as deny l/abnormal. [place] 506282-06-28 04:12:00 Test Item Value Reference Range Interpretation Comments Alk Phos (test code = Alk Phos) 383 39-136 [place] 506282-06-28 04:12:00 Test Item Value Reference Range Interpretation Comments Bili Total (test code = Bili Total) 1.1 0.2-1.3 [place] 506282-06-28 04:12:00 Test Item Value Reference Range Interpretation Comments AGAP (test code = AGAP) 13.9 10.0-20.0 [place] 506282-06-28 04:12:00 Test Item Value Reference Range Interpretation Comments B/C Ratio (test code = B/C Ratio) 7 1 6-25 [place] 506282-06-28 04:12:00 Test Item Value Reference Range Interpretation Comments Globulin (test code = Globulin) 4.3 2.7-4.2 [place] 506282-06-28 04:12:00 Test Item Value Reference Range Interpretation Comments A/G Ratio (test code = A/G Ratio) 0.6 1 0.7-1.6 [place] 506282-06-28 04:12:00 Test Item Value Reference Range Interpretation Comments eGFR (test code = eGFR) 5 [place] 506282-06-28 04:12:00 Test Item Value Reference Range Interpretation Comments Procalcitonin Lvl (test 0.69 See_Comment [Au tomated message] code = Procalcitonin Lvl) Th e system which generated this result transmitted ref erence range: <=0.10. The reference range was not used to interpr et this result as normal/abnormal . [place] 155092-06-28 04:12:00 Test Item Value Reference Range Interpretation Comments WBC (test code = WBC) 4.1 3.7-10.4 [place] 155092-06-28 04:12:00 Test Item Value Reference Range Interpretation Comments RBC (test code = RBC) 1.78 4.70-6.10 [place] [address]-06-28 04:12:00 Test Item Value Reference Range Interpretation Comments Hgb (test code = Hgb) 6.5 14.0-18.0 [place] [address]-06-28 04:12:00 Test Item Value Reference Range Interpretation Comments Hct (test code = Hct) 19.5 42.0-54.0 [place] [address]-06-28 04:12:00 Test Item Value Reference Range Interpretation Comments MCV (test code = MCV) 110.0 80.0-94.0 [facility]GiozhexDJXCMADRAQ0194-61-35 04:12:00 Test Item Value Reference Range Interpretation Comments MCH (test code = MCH) 36.5 pg 27.0-31.0 [facility] CampusHfnpbmcYRKPSFLWJJ6212-87-76 04:12:00 Test Item Value Reference Range Interpretation Comments MCHC (test code = MCHC) 33.2 32.0-36.0 [facility] CampusEfmtyueGALGOVBUTC8776-58-27 04:12:00 Test Item Value Reference Range Interpretation Comments RDW (test code = RDW) 19.0 11.5-14.5 [facility] CampusYycjedmWEDRTMETYO0035-52-77 04:12:00 Test Item Value Reference Range Interpretation Comments Platelet (test code = Platelet) 180 133-450 [facility] CampusNrlxmxmWBGARETPAN2762-33-51 04:12:00 Test Item Value Reference Range Interpretation Comments MPV (test code = MPV) 8.3 7.4-10.4 [facility] CampusDrtvsocULNPVSXNGF9572-40-87 04:12:00 Test Item Value Reference Range Interpretation Comments PTT (test code = PTT) 45.4 s 22.9-35.8 [facility] CampusPaimeyqQSIMQRPTZI0143-68-01 04:12:00 Test Item Value Reference Range Interpretation Comments PT (test code = PT) 19.1 s 12.0-14.7 [facility] CampusAasoolbWZHALDJNBO3657-85-08 04:12:00 Test Item Value Reference Range Interpretation Comments INR (test code = INR) 1.62 1 0.85-1.17 [facility] CampusCevaujsQUYAYPHHZV9060-79-90 04:12:00 Test Item Value Reference Range Interpretation Comments RBC Morph (test code = See Note (11/24/21 RBC Morph) 11:12 PM) [facility] CampusSbkhgwfBLYZEIDBBX7696-99-35 04:12:00 Test Item Value Reference Range Interpretation Comments Plt Morph (test code = Normal (11/24/21 11:12 Plt Morph) PM) [facility] CampusIqlvvheDPEYSKMDIN9833-47-84 04:12:00 Test Item Value Reference Range Interpretation Comments Segs (test code = Segs) 72.2 45.0-75.0 [facility] CampusCwzeyzjNXMVWAQEMN8703-29-36 04:12:00 Test Item Value Reference Range Interpretation Comments Lymphocytes (test code = Lymphocytes) 16.2 20.0-40.0 [place] 155092-06-28 04:12:00 Test Item Value Reference Range Interpretation Comments Monocytes (test code = Monocytes) 8.0 2.0-12.0 [facility] CampusPuunummYEIPMITVZF9916-66-86 04:12:00 Test Item Value Reference Range Interpretation Comments Eosinophils (test code = 2.7 See_Comment [A utomated message] The Eosinophils) system which ge nerated this result tra nsmitted reference range : <=4.0. The reference r samantha was not used to int erpret this result as normal/abnormal . [facility] CampusYlxrwrnQVLWYVLVIT1183-52-76 04:12:00 Test Item Value Reference Range Interpretation Comments Basophils (test code = 0.9 See_Comment [Aut omated message] The Basophils) system which ge nerated this result tra nsmitted reference range : <=1.0. The reference r samantha was not used to int erpret this result as normal/abnormal . [place] 155092-06-28 04:12:00 Test Item Value Reference Range Interpretation Comments Neutrophils # (test code = Neutrophils 2.9 1.5-8.1 #) [facility] CampusFnvzhpkCUWRGKPWUN1948-74-37 04:12:00 Test Item Value Reference Range Interpretation Comments Lymphocytes # (test code = Lymphocytes 0.7 1.0-5.5 #) [facility] CampusUviknqrTSTOIWQTHH9027-56-39 04:12:00 Test Item Value Reference Range Interpretation Comments Monocytes # (test code 0.3 See_Comment [Aut omated message] The = Monocytes #) system which generated this result tra nsmitted reference range : <=0.8. The reference r samantha was not used to int erpret this result as normal/abnormal . [facility] CampusNbireolUDVCVMHSZN2900-60-65 04:12:00 Test Item Value Reference Range Interpretation Comments Eosinophils # (test code 0.1 See_Comment [A utomated message] The = Eosinophils #) system whic h generated this result tra nsmitted reference range : <=0.5. The reference r samantha was not used to int erpret this result as normal/abnormal . [place] 155092-06-28 04:12:00 Test Item Value Reference Range Interpretation Comments Anisocyte (test code = 1+ *ABN*(11/24/21 Anisocyte) 11:12 PM) [place] [address]-06-28 04:12:00 Test Item Value Reference Range Interpretation Comments Macrocyte (test code = 1+ *ABN*(11/24/21 Macrocyte) 11:12 PM) [facility]FgscnmoZHVVMZZOMH6086-19-88 04:12:00 Test Item Value Reference Range Interpretation Comments Microcyte (test code = 1+ *ABN*(11/24/21 Microcyte) 11:12 PM) [facility] SUPR [id number] 04:12:00 Test Item Value Reference Range Interpretation Comments ABO/Rh (test code = ABO/Rh) AB POS [facility] SUPR [id number] 04:12:00 Test Item Value Reference Range Interpretation Comments Antibody Scrn (test Negative (11/24/21 code = Antibody Scrn) 11:12 PM) [facility] [employer] [id number] 04:12:00 Test Item Value Reference Range Interpretation Comments Total CK (test code = Total CK) 86 12-191 [facility] CenterStyle[facility] 04:12:00 Test Item Value Reference Range Interpretation Comments HS Troponin I (test code = HS Troponin 316 I) [facility] [employer] [id number] 04:12:00 Test Item Value Reference Range Interpretation Comments Glucose Lvl (test code = Glucose Lvl) 261 70-99 [facility] [employer]2022-06-28 04:12:00 Test Item Value Reference Range Interpretation Comments BUN (test code = BUN) 60 7-22 [facility] [employer]2022-06-28 04:12:00 Test Item Value Reference Range Interpretation Comments Creatinine Lvl (test code = Creatinine 8.49 0.50-1.40 Lvl) [facility] [employer]2022-06-28 04:12:00 Test Item Value Reference Range Interpretation Comments Sodium Lvl (test code = Sodium Lvl) 133 135-145 [facility] [employer]2022-06-28 04:12:00 Test Item Value Reference Range Interpretation Comments Potassium Lvl (test code = Potassium 4.9 3.5-5.1 Lvl) [facility]2022-06-28 04:12:00 Test Item Value Reference Range Interpretation Comments Chloride Lvl (test code = Chloride Lvl) 93 95-109 [facility] [employer]2022-06-28 04:12:00 Test Item Value Reference Range Interpretation Comments CO2 (test code = CO2) 31 24-32 [place] 506282-06-28 04:12:00 Test Item Value Reference Range Interpretation Comments Calcium Lvl (test code = Calcium Lvl) 9.1 8.5-10.5 [place] 506282-06-28 04:12:00 Test Item Value Reference Range Interpretation Comments Total Protein (test code = Total 6.8 6.4-8.4 Protein) [place] 506282-06-28 04:12:00 Test Item Value Reference Range Interpretation Comments Albumin Lvl (test code = Albumin Lvl) 2.5 3.5-5.0 [facility] CenterY[facility] [id number] 04:12:00 Test Item Value Reference Range Interpretation Comments ALT (test code = ALT) 51 See_Comment [Auto mated message] The system which ge nerated this result transmit swathi reference range : <=65. The reference range was not used to interpr et this result as deny l/abnormal. [facility] [id number] 04:12:00 Test Item Value Reference Range Interpretation Comments AST (test code = AST) 36 See_Comment [Auto mated message] The system which ge nerated this result transmit swathi reference range : <=37. The reference range was not used to interpr et this result as deny l/abnormal. [facility] [id number] 04:12:00 Test Item Value Reference Range Interpretation Comments Alk Phos (test code = Alk Phos) 383 39-136 [facility] [id number] 04:12:00 Test Item Value Reference Range Interpretation Comments Bili Total (test code = Bili Total) 1.1 0.2-1.3 [facility] [id number] 04:12:00 Test Item Value Reference Range Interpretation Comments AGAP (test code = AGAP) 13.9 10.0-20.0 [facility] [id number] 04:12:00 Test Item Value Reference Range Interpretation Comments B/C Ratio (test code = B/C Ratio) 7 1 6-25 [facility] [id number] 04:12:00 Test Item Value Reference Range Interpretation Comments Globulin (test code = Globulin) 4.3 2.7-4.2 [facility]2022-06-28 04:12:00 Test Item Value Reference Range Interpretation Comments A/G Ratio (test code = A/G Ratio) 0.6 1 0.7-1.6 [place] 506282-06-28 04:12:00 Test Item Value Reference Range Interpretation Comments eGFR (test code = eGFR) 5 [place] 506282-06-28 04:12:00 Test Item Value Reference Range Interpretation Comments Procalcitonin Lvl (test 0.69 See_Comment [Au tomated message] code = Procalcitonin Lvl) Th e system which generated this result transmitted ref erence range: <=0.10. The reference range was not used to interpr et this result as normal/abnormal . [place] 155092-06-28 04:12:00 Test Item Value Reference Range Interpretation Comments WBC (test code = WBC) 4.1 3.7-10.4 [place] 155092-06-28 04:12:00 Test Item Value Reference Range Interpretation Comments RBC (test code = RBC) 1.78 4.70-6.10 [place] 155092-06-28 04:12:00 Test Item Value Reference Range Interpretation Comments Hgb (test code = Hgb) 6.5 14.0-18.0 [place] 155092-06-28 04:12:00 Test Item Value Reference Range Interpretation Comments Hct (test code = Hct) 19.5 42.0-54.0 [place] 155092-06-28 04:12:00 Test Item Value Reference Range Interpretation Comments MCV (test code = MCV) 110.0 80.0-94.0 [place] 155092-06-28 04:12:00 Test Item Value Reference Range Interpretation Comments MCH (test code = MCH) 36.5 pg 27.0-31.0 [place] 155092-06-28 04:12:00 Test Item Value Reference Range Interpretation Comments MCHC (test code = MCHC) 33.2 32.0-36.0 [place] 155092-06-28 04:12:00 Test Item Value Reference Range Interpretation Comments RDW (test code = RDW) 19.0 11.5-14.5 [facility] CampusMunhlwuNTOQPGTXCZ9912-06-26 04:12:00 Test Item Value Reference Range Interpretation Comments Platelet (test code = Platelet) 180 133-450 [facility] CampusDuquajbMMJYQHYTZS2173-01-56 04:12:00 Test Item Value Reference Range Interpretation Comments MPV (test code = MPV) 8.3 7.4-10.4 [facility] CampusXoqegpeQCVPYVOYXB9499-05-40 04:12:00 Test Item Value Reference Range Interpretation Comments PTT (test code = PTT) 45.4 s 22.9-35.8 [facility] CampusXffhjhuTYIUWIBDZQ4839-62-75 04:12:00 Test Item Value Reference Range Interpretation Comments PT (test code = PT) 19.1 s 12.0-14.7 [facility] CampusIuvbihlBEACIJPNEM9755-21-57 04:12:00 Test Item Value Reference Range Interpretation Comments INR (test code = INR) 1.62 1 0.85-1.17 [facility] CampusQteygluPOEZXLJXGM2755-95-26 04:12:00 Test Item Value Reference Range Interpretation Comments RBC Morph (test code = See Note (11/24/21 RBC Morph) 11:12 PM) [facility] CampusRwhgxmuDZSIUCPCRC8454-39-06 04:12:00 Test Item Value Reference Range Interpretation Comments Plt Morph (test code = Normal (11/24/21 11:12 Plt Morph) PM) [facility] CampusNxsztqsIZXUTVWVSI1460-49-83 04:12:00 Test Item Value Reference Range Interpretation Comments Segs (test code = Segs) 72.2 45.0-75.0 [facility] CampusDvavcjzJKFVBBROUV0003-15-38 04:12:00 Test Item Value Reference Range Interpretation Comments Lymphocytes (test code = Lymphocytes) 16.2 20.0-40.0 [facility] CampusLcjhaciEZJECDNBKU3815-08-37 04:12:00 Test Item Value Reference Range Interpretation Comments Monocytes (test code = Monocytes) 8.0 2.0-12.0 [facility] CampusWrtjsedYUQZOQQDLH1662-51-00 04:12:00 Test Item Value Reference Range Interpretation Comments Eosinophils (test code = 2.7 See_Comment [A utomated message] The Eosinophils) system which ge nerated this result tra nsmitted reference range : <=4.0. The reference r samantha was not used to int erpret this result as normal/abnormal . [facility] CampusMbcvsciIJGZRXITRE7537-24-50 04:12:00 Test Item Value Reference Range Interpretation Comments Basophils (test code = 0.9 See_Comment [Aut omated message] The Basophils) system which ge nerated this result tra nsmitted reference range : <=1.0. The reference r samantha was not used to int erpret this result as normal/abnormal . [facility] CampusXytzqeuIUGEWYEHLA7895-97-91 04:12:00 Test Item Value Reference Range Interpretation Comments Neutrophils # (test code = Neutrophils 2.9 1.5-8.1 #) [facility] CampusWprqamjYWKDXTNKHP6028-09-06 04:12:00 Test Item Value Reference Range Interpretation Comments Lymphocytes # (test code = Lymphocytes 0.7 1.0-5.5 #) [facility] CampusSluczbuXWVZNUSFFJ8613-59-87 04:12:00 Test Item Value Reference Range Interpretation Comments Monocytes # (test code 0.3 See_Comment [Aut omated message] The = Monocytes #) system which generated this result tra nsmitted reference range : <=0.8. The reference r samantha was not used to int erpret this result as normal/abnormal . [facility] CampusNgcexagUITPQRGNMI1560-75-08 04:12:00 Test Item Value Reference Range Interpretation Comments Eosinophils # (test code 0.1 See_Comment [A utomated message] The = Eosinophils #) system whic h generated this result tra nsmitted reference range : <=0.5. The reference r samantha was not used to int erpret this result as normal/abnormal . [facility] CampusQmgsjvgLWBEFQJHXJ5914-02-79 04:12:00 Test Item Value Reference Range Interpretation Comments Anisocyte (test code = 1+ *ABN*(11/24/21 Anisocyte) 11:12 PM) [facility] CampusWhnkwhbDLLRYXZBKF8601-08-31 04:12:00 Test Item Value Reference Range Interpretation Comments Macrocyte (test code = 1+ *ABN*(11/24/21 Macrocyte) 11:12 PM) [facility] CampusJqwlnuzNWJJTSBGEQ9089-30-91 04:12:00 Test Item Value Reference Range Interpretation Comments Microcyte (test code = 1+ *ABN*(11/24/21 Microcyte) 11:12 PM) [facility] [id number] 04:12:00 Test Item Value Reference Range Interpretation Comments ABO/Rh (test code = ABO/Rh) AB POS [facility] CenterChef DovunqueOOD BANK HOKLWTZ5234-70-08 04:12:00 Test Item Value Reference Range Interpretation Comments Antibody Scrn (test Negative (11/24/21 code = Antibody Scrn) 11:12 PM) [facility] CenterzeeWAVESAC [id number] 04:12:00 Test Item Value Reference Range Interpretation Comments Total CK (test code = Total CK) 86 12-191 [facility] CenterzeeWAVES VNBOZSY5635-18-08 04:12:00 Test Item Value Reference Range Interpretation Comments HS Troponin I (test code = HS Troponin 316 I) [facility] [employer] [id number] 04:12:00 Test Item Value Reference Range Interpretation Comments Glucose Lvl (test code = Glucose Lvl) 261 70-99 [facility] [employer] [id number] 04:12:00 Test Item Value Reference Range Interpretation Comments BUN (test code = BUN) 60 7-22 [facility] [employer] [id number] 04:12:00 Test Item Value Reference Range Interpretation Comments Creatinine Lvl (test code = Creatinine 8.49 0.50-1.40 Lvl) [facility] [employer] [id number] 04:12:00 Test Item Value Reference Range Interpretation Comments Sodium Lvl (test code = Sodium Lvl) 133 135-145 [facility] [employer] [id number] 04:12:00 Test Item Value Reference Range Interpretation Comments Potassium Lvl (test code = Potassium 4.9 3.5-5.1 Lvl) [facility] [employer] [id number] 04:12:00 Test Item Value Reference Range Interpretation Comments Chloride Lvl (test code = Chloride Lvl) 93 95-109 [facility] [employer] [id number] 04:12:00 Test Item Value Reference Range Interpretation Comments CO2 (test code = CO2) 31 24-32 [facility] [employer] [id number] 04:12:00 Test Item Value Reference Range Interpretation Comments Calcium Lvl (test code = Calcium Lvl) 9.1 8.5-10.5 [facility] [employer] [id number] 04:12:00 Test Item Value Reference Range Interpretation Comments Total Protein (test code = Total 6.8 6.4-8.4 Protein) [facility] [employer] [id number] 04:12:00 Test Item Value Reference Range Interpretation Comments Albumin Lvl (test code = Albumin Lvl) 2.5 3.5-5.0 [place] 506282-06-28 04:12:00 Test Item Value Reference Range Interpretation Comments ALT (test code = ALT) 51 See_Comment [Auto mated message] The system which ge nerated this result transmit swathi reference range : <=65. The reference range was not used to interpr et this result as deny l/abnormal. [place] 506282-06-28 04:12:00 Test Item Value Reference Range Interpretation Comments AST (test code = AST) 36 See_Comment [Auto mated message] The system which ge nerated this result transmit swathi reference range : <=37. The reference range was not used to interpr et this result as deny l/abnormal. [place] 506282-06-28 04:12:00 Test Item Value Reference Range Interpretation Comments Alk Phos (test code = Alk Phos) 383 39-136 [place] 506282-06-28 04:12:00 Test Item Value Reference Range Interpretation Comments Bili Total (test code = Bili Total) 1.1 0.2-1.3 [place] [address]-06-28 04:12:00 Test Item Value Reference Range Interpretation Comments AGAP (test code = AGAP) 13.9 10.0-20.0 [place] [address]-06-28 04:12:00 Test Item Value Reference Range Interpretation Comments B/C Ratio (test code = B/C Ratio) 7 1 6-25 [place] 506282-06-28 04:12:00 Test Item Value Reference Range Interpretation Comments Globulin (test code = Globulin) 4.3 2.7-4.2 [place] [address]-06-28 04:12:00 Test Item Value Reference Range Interpretation Comments A/G Ratio (test code = A/G Ratio) 0.6 1 0.7-1.6 [place] [address]-06-28 04:12:00 Test Item Value Reference Range Interpretation Comments eGFR (test code = eGFR) 5 [place] 506282-06-28 04:12:00 Test Item Value Reference Range Interpretation Comments Procalcitonin Lvl (test 0.69 See_Comment [Au tomated message] code = Procalcitonin Lvl) Th e system which generated this result transmitted ref erence range: <=0.10. The reference range was not used to interpr et this result as normal/abnormal . [facility] CampusSgkufmoWHNFGMCOYV4955-28-05 04:12:00 Test Item Value Reference Range Interpretation Comments WBC (test code = WBC) 4.1 3.7-10.4 [facility] CampusOsgiagxBGNMQHFTKL2817-38-96 04:12:00 Test Item Value Reference Range Interpretation Comments RBC (test code = RBC) 1.78 4.70-6.10 [facility] CampusWfitpwfZUHIUUZVUN6898-60-08 04:12:00 Test Item Value Reference Range Interpretation Comments Hgb (test code = Hgb) 6.5 14.0-18.0 [facility] CampusZdibmviBGDRFBLKDR8398-89-53 04:12:00 Test Item Value Reference Range Interpretation Comments Hct (test code = Hct) 19.5 42.0-54.0 [facility] CampusByxiiryNVMUDOLZKB5720-95-62 04:12:00 Test Item Value Reference Range Interpretation Comments MCV (test code = MCV) 110.0 80.0-94.0 [facility] CampusItxjaqkWRYKZUVJAE3460-40-88 04:12:00 Test Item Value Reference Range Interpretation Comments MCH (test code = MCH) 36.5 pg 27.0-31.0 [facility] CampusIkvyucsYBKKAJZVKD5999-52-64 04:12:00 Test Item Value Reference Range Interpretation Comments MCHC (test code = MCHC) 33.2 32.0-36.0 [facility] CampusTbvnpvfDJWDGHZYCG7195-18-90 04:12:00 Test Item Value Reference Range Interpretation Comments RDW (test code = RDW) 19.0 11.5-14.5 [facility] CampusAviuidfXCEQXIKDEF8375-15-05 04:12:00 Test Item Value Reference Range Interpretation Comments Platelet (test code = Platelet) 180 133-450 [facility] CampusXszkodoNGBIREWWRQ1234-66-35 04:12:00 Test Item Value Reference Range Interpretation Comments MPV (test code = MPV) 8.3 7.4-10.4 [facility] CampusHzigfsqTDVMTZLDKI4265-05-81 04:12:00 Test Item Value Reference Range Interpretation Comments PTT (test code = PTT) 45.4 s 22.9-35.8 [place] 155092-06-28 04:12:00 Test Item Value Reference Range Interpretation Comments PT (test code = PT) 19.1 s 12.0-14.7 [facility] YqmmkybPXVDBNMTEL8563-85-14 04:12:00 Test Item Value Reference Range Interpretation Comments INR (test code = INR) 1.62 1 0.85-1.17 [facility] CkuwgrqCPQOIAFCKX3083-20-48 04:12:00 Test Item Value Reference Range Interpretation Comments RBC Morph (test code = See Note (11/24/21 RBC Morph) 11:12 PM) [facility] NeysltoDQLUGVAUGV5757-57-36 04:12:00 Test Item Value Reference Range Interpretation Comments Plt Morph (test code = Normal (11/24/21 11:12 Plt Morph) PM) [facility] HqooyqiQTAJKHXCXR5365-66-72 04:12:00 Test Item Value Reference Range Interpretation Comments Segs (test code = Segs) 72.2 45.0-75.0 [facility] KeuqelvNSCUTTYAUW2618-84-87 04:12:00 Test Item Value Reference Range Interpretation Comments Lymphocytes (test code = Lymphocytes) 16.2 20.0-40.0 [facility] SUPR [id number] 04:12:00 Test Item Value Reference Range Interpretation Comments ABO/Rh (test code = ABO/Rh) AB POS [facility] [employer] [id number] 04:12:00 Test Item Value Reference Range Interpretation Comments Antibody Scrn (test Negative (11/24/21 code = Antibody Scrn) 11:12 PM) [facility] [employer]2022-06-28 04:12:00 Test Item Value Reference Range Interpretation Comments Total CK (test code = Total CK) 86 12-191 [facility] [employer]2022-06-28 04:12:00 Test Item Value Reference Range Interpretation Comments HS Troponin I (test code = HS Troponin 316 I) [facility]2022-06-28 04:12:00 Test Item Value Reference Range Interpretation Comments Glucose Lvl (test code = Glucose Lvl) 261 70-99 [facility] [employer]2022-06-28 04:12:00 Test Item Value Reference Range Interpretation Comments BUN (test code = BUN) 60 7-22 [facility]2022-06-28 04:12:00 Test Item Value Reference Range Interpretation Comments Creatinine Lvl (test code = Creatinine 8.49 0.50-1.40 Lvl) [place] 506282-06-28 04:12:00 Test Item Value Reference Range Interpretation Comments Sodium Lvl (test code = Sodium Lvl) 133 135-145 [place] 506282-06-28 04:12:00 Test Item Value Reference Range Interpretation Comments Potassium Lvl (test code = Potassium 4.9 3.5-5.1 Lvl) [place] 506282-06-28 04:12:00 Test Item Value Reference Range Interpretation Comments Chloride Lvl (test code = Chloride Lvl) 93 95-109 [facility]96 04:12:00 Test Item Value Reference Range Interpretation Comments Monocytes (test code = Monocytes) 8.0 2.0-12.0 [place] 506282-06-28 04:12:00 Test Item Value Reference Range Interpretation Comments CO2 (test code = CO2) 31 24-32 [place] 506282-06-28 04:12:00 Test Item Value Reference Range Interpretation Comments Calcium Lvl (test code = Calcium Lvl) 9.1 8.5-10.5 [place]282-06-28 04:12:00 Test Item Value Reference Range Interpretation Comments Total Protein (test code = Total 6.8 6.4-8.4 Protein) [place] 506282-06-28 04:12:00 Test Item Value Reference Range Interpretation Comments Albumin Lvl (test code = Albumin Lvl) 2.5 3.5-5.0 [place] 506282-06-28 04:12:00 Test Item Value Reference Range Interpretation Comments ALT (test code = ALT) 51 See_Comment [Auto mated message] The system which ge nerated this result transmit swathi reference range : <=65. The reference range was not used to interpr et this result as deny l/abnormal. [place] 506282-06-28 04:12:00 Test Item Value Reference Range Interpretation Comments AST (test code = AST) 36 See_Comment [Auto mated message] The system which ge nerated this result transmit swathi reference range : <=37. The reference range was not used to interpr et this result as deny l/abnormal. [place]282-06-28 04:12:00 Test Item Value Reference Range Interpretation Comments Alk Phos (test code = Alk Phos) 383 39-136 [place] 506282-06-28 04:12:00 Test Item Value Reference Range Interpretation Comments Bili Total (test code = Bili Total) 1.1 0.2-1.3 [place] 506282-06-28 04:12:00 Test Item Value Reference Range Interpretation Comments AGAP (test code = AGAP) 13.9 10.0-20.0 [place] 506282-06-28 04:12:00 Test Item Value Reference Range Interpretation Comments B/C Ratio (test code = B/C Ratio) 7 1 6-25 [place] 155092-06-28 04:12:00 Test Item Value Reference Range Interpretation Comments Eosinophils (test code = 2.7 See_Comment [A utomated message] The Eosinophils) system which ge nerated this result tra nsmitted reference range : <=4.0. The reference r samantha was not used to int erpret this result as normal/abnormal . [place] 506282-06-28 04:12:00 Test Item Value Reference Range Interpretation Comments Globulin (test code = Globulin) 4.3 2.7-4.2 [place] 506282-06-28 04:12:00 Test Item Value Reference Range Interpretation Comments A/G Ratio (test code = A/G Ratio) 0.6 1 0.7-1.6 [place] 506282-06-28 04:12:00 Test Item Value Reference Range Interpretation Comments eGFR (test code = eGFR) 5 [place] 506282-06-28 04:12:00 Test Item Value Reference Range Interpretation Comments Procalcitonin Lvl (test 0.69 See_Comment [Au tomated message] code = Procalcitonin Lvl) Th e system which generated this result transmitted ref erence range: <=0.10. The reference range was not used to interpr et this result as normal/abnormal . [place] 155092-06-28 04:12:00 Test Item Value Reference Range Interpretation Comments WBC (test code = WBC) 4.1 3.7-10.4 [address]06-28 04:12:00 Test Item Value Reference Range Interpretation Comments RBC (test code = RBC) 1.78 4.70-6.10 [place] 155092-06-28 04:12:00 Test Item Value Reference Range Interpretation Comments Hgb (test code = Hgb) 6.5 14.0-18.0 [place] 155092-06-28 04:12:00 Test Item Value Reference Range Interpretation Comments Hct (test code = Hct) 19.5 42.0-54.0 [place] 155092-06-28 04:12:00 Test Item Value Reference Range Interpretation Comments MCV (test code = MCV) 110.0 80.0-94.0 [place] 155092-06-28 04:12:00 Test Item Value Reference Range Interpretation Comments MCH (test code = MCH) 36.5 pg 27.0-31.0 [place] 155092-06-28 04:12:00 Test Item Value Reference Range Interpretation Comments Basophils (test code = 0.9 See_Comment [Aut omated message] The Basophils) system which ge nerated this result tra nsmitted reference range : <=1.0. The reference r samantha was not used to int erpret this result as normal/abnormal . [facility]UjuqankDPHKRIKGNW3679-92-13 04:12:00 Test Item Value Reference Range Interpretation Comments MCHC (test code = MCHC) 33.2 32.0-36.0 [place] 155092-06-28 04:12:00 Test Item Value Reference Range Interpretation Comments RDW (test code = RDW) 19.0 11.5-14.5 [place] 155092-06-28 04:12:00 Test Item Value Reference Range Interpretation Comments Platelet (test code = Platelet) 180 133-450 [facility] CampusRtiwnvdNJLQGILMMI3930-47-91 04:12:00 Test Item Value Reference Range Interpretation Comments MPV (test code = MPV) 8.3 7.4-10.4 [place] 155092-06-28 04:12:00 Test Item Value Reference Range Interpretation Comments PTT (test code = PTT) 45.4 s 22.9-35.8 [place] 155092-06-28 04:12:00 Test Item Value Reference Range Interpretation Comments PT (test code = PT) 19.1 s 12.0-14.7 [facility] CampusYxwhjpdKPDNVOZRYJ3340-54-38 04:12:00 Test Item Value Reference Range Interpretation Comments INR (test code = INR) 1.62 1 0.85-1.17 [facility] CampusQubxaobCQHDGYUCZK9893-81-37 04:12:00 Test Item Value Reference Range Interpretation Comments RBC Morph (test code = See Note (11/24/21 RBC Morph) 11:12 PM) [facility] CampusMgepjloOLKCYTTJAH8337-89-94 04:12:00 Test Item Value Reference Range Interpretation Comments Plt Morph (test code = Normal (11/24/21 11:12 Plt Morph) PM) [facility] CampusZhfeeqaESREOCTLVW5635-81-58 04:12:00 Test Item Value Reference Range Interpretation Comments Segs (test code = Segs) 72.2 45.0-75.0 [place] 155092-06-28 04:12:00 Test Item Value Reference Range Interpretation Comments Neutrophils # (test code = Neutrophils 2.9 1.5-8.1 #) [facility] CampusAjsrqlzCQSDQOOBLZ0797-89-37 04:12:00 Test Item Value Reference Range Interpretation Comments Lymphocytes (test code = Lymphocytes) 16.2 20.0-40.0 [facility] CampusThblojmXYTZPSWMPW3389-77-80 04:12:00 Test Item Value Reference Range Interpretation Comments Monocytes (test code = Monocytes) 8.0 2.0-12.0 [facility] CampusIuwnsjiLCMLLQNLAI9353-48-13 04:12:00 Test Item Value Reference Range Interpretation Comments Eosinophils (test code = 2.7 See_Comment [A utomated message] The Eosinophils) system which ge nerated this result tra nsmitted reference range : <=4.0. The reference r samantha was not used to int erpret this result as normal/abnormal . [facility] CampusPtqpzqvHHNPTJPALL7751-91-91 04:12:00 Test Item Value Reference Range Interpretation Comments Basophils (test code = 0.9 See_Comment [Aut omated message] The Basophils) system which ge nerated this result tra nsmitted reference range : <=1.0. The reference r samantha was not used to int erpret this result as normal/abnormal . [facility] CampusPbhepcfULHENSIVQW4055-26-79 04:12:00 Test Item Value Reference Range Interpretation Comments Neutrophils # (test code = Neutrophils 2.9 1.5-8.1 #) [place] 155092-06-28 04:12:00 Test Item Value Reference Range Interpretation Comments Lymphocytes # (test code = Lymphocytes 0.7 1.0-5.5 #) [place] 155092-06-28 04:12:00 Test Item Value Reference Range Interpretation Comments Monocytes # (test code 0.3 See_Comment [Aut omated message] The = Monocytes #) system which generated this result tra nsmitted reference range : <=0.8. The reference r samantha was not used to int erpret this result as normal/abnormal . [place] [address]-06-28 04:12:00 Test Item Value Reference Range Interpretation Comments Eosinophils # (test code 0.1 See_Comment [A utomated message] The = Eosinophils #) system whic h generated this result tra nsmitted reference range : <=0.5. The reference r samantha was not used to int erpret this result as normal/abnormal . [facility] CampusWclqtgrWUBBGSUFLG2214-55-68 04:12:00 Test Item Value Reference Range Interpretation Comments Anisocyte (test code = 1+ *ABN*(11/24/21 Anisocyte) 11:12 PM) [place] 155092-06-28 04:12:00 Test Item Value Reference Range Interpretation Comments Macrocyte (test code = 1+ *ABN*(11/24/21 Macrocyte) 11:12 PM) [place] 155092-06-28 04:12:00 Test Item Value Reference Range Interpretation Comments Lymphocytes # (test code = Lymphocytes 0.7 1.0-5.5 #) [place] 155092-06-28 04:12:00 Test Item Value Reference Range Interpretation Comments Microcyte (test code = 1+ *ABN*(11/24/21 Microcyte) 11:12 PM) [place] [address]-06-28 04:12:00 Test Item Value Reference Range Interpretation Comments Monocytes # (test code 0.3 See_Comment [Aut omated message] The = Monocytes #) system which generated this result tra nsmitted reference range : <=0.8. The reference r samantha was not used to int erpret this result as normal/abnormal . [place] 155092-06-28 04:12:00 Test Item Value Reference Range Interpretation Comments Eosinophils # (test code 0.1 See_Comment [A utomated message] The = Eosinophils #) system whic h generated this result tra nsmitted reference range : <=0.5. The reference r samantha was not used to int erpret this result as normal/abnormal . [facility]UdyulwjLUSWBOAEJS2535-25-88 04:12:00 Test Item Value Reference Range Interpretation Comments Anisocyte (test code = 1+ *ABN*(11/24/21 Anisocyte) 11:12 PM) [facility] CenterAoehnymRRYJACAQKW4319-79-39 04:12:00 Test Item Value Reference Range Interpretation Comments Macrocyte (test code = 1+ *ABN*(11/24/21 Macrocyte) 11:12 PM) [facility] CenterHktzsulQWCRJALWYO5684-74-22 04:12:00 Test Item Value Reference Range Interpretation Comments Microcyte (test code = 1+ *ABN*(11/24/21 Microcyte) 11:12 PM) [facility] SUPR TQHFKRK8592-52-77 04:12:00 Test Item Value Reference Range Interpretation Comments ABO/Rh (test code = ABO/Rh) AB POS [facility] SUPR BSQYGWX3672-82-64 04:12:00 Test Item Value Reference Range Interpretation Comments Antibody Scrn (test Negative (11/24/21 code = Antibody Scrn) 11:12 PM) [employer] UCOOJMA2892-52-58 04:12:00 Test Item Value Reference Range Interpretation Comments Total CK (test code = Total CK) 86 12-191 [facility] [employer]2022-06-28 04:12:00 Test Item Value Reference Range Interpretation Comments HS Troponin I (test code = HS Troponin 316 I) [facility]2022-06-28 04:12:00 Test Item Value Reference Range Interpretation Comments Glucose Lvl (test code = Glucose Lvl) 261 70-99 [facility]2022-06-28 04:12:00 Test Item Value Reference Range Interpretation Comments BUN (test code = BUN) 60 7-22 [facility]2022-06-28 04:12:00 Test Item Value Reference Range Interpretation Comments Creatinine Lvl (test code = Creatinine 8.49 0.50-1.40 Lvl) [place] 506282-06-28 04:12:00 Test Item Value Reference Range Interpretation Comments Sodium Lvl (test code = Sodium Lvl) 133 135-145 [place] 506282-06-28 04:12:00 Test Item Value Reference Range Interpretation Comments Potassium Lvl (test code = Potassium 4.9 3.5-5.1 Lvl) [place] 506282-06-28 04:12:00 Test Item Value Reference Range Interpretation Comments Chloride Lvl (test code = Chloride Lvl) 93 95-109 [place]282-06-28 04:12:00 Test Item Value Reference Range Interpretation Comments CO2 (test code = CO2) 31 24-32 [place]282-06-28 04:12:00 Test Item Value Reference Range Interpretation Comments Calcium Lvl (test code = Calcium Lvl) 9.1 8.5-10.5 [place]282-06-28 04:12:00 Test Item Value Reference Range Interpretation Comments Total Protein (test code = Total 6.8 6.4-8.4 Protein) [place] 506282-06-28 04:12:00 Test Item Value Reference Range Interpretation Comments Albumin Lvl (test code = Albumin Lvl) 2.5 3.5-5.0 [place]282-06-28 04:12:00 Test Item Value Reference Range Interpretation Comments ALT (test code = ALT) 51 See_Comment [Auto mated message] The system which ge nerated this result transmit swathi reference range : <=65. The reference range was not used to interpr et this result as deny l/abnormal. [place]282-06-28 04:12:00 Test Item Value Reference Range Interpretation Comments AST (test code = AST) 36 See_Comment [Auto mated message] The system which ge nerated this result transmit swathi reference range : <=37. The reference range was not used to interpr et this result as deny l/abnormal. [place] 506282-06-28 04:12:00 Test Item Value Reference Range Interpretation Comments Alk Phos (test code = Alk Phos) 383 39-136 [place] 506282-06-28 04:12:00 Test Item Value Reference Range Interpretation Comments Bili Total (test code = Bili Total) 1.1 0.2-1.3 [place] 506282-06-28 04:12:00 Test Item Value Reference Range Interpretation Comments AGAP (test code = AGAP) 13.9 10.0-20.0 [place] 506282-06-28 04:12:00 Test Item Value Reference Range Interpretation Comments B/C Ratio (test code = B/C Ratio) 7 1 6-25 [place]282-06-28 04:12:00 Test Item Value Reference Range Interpretation Comments Globulin (test code = Globulin) 4.3 2.7-4.2 [place]282-06-28 04:12:00 Test Item Value Reference Range Interpretation Comments A/G Ratio (test code = A/G Ratio) 0.6 1 0.7-1.6 [place]282-06-28 04:12:00 Test Item Value Reference Range Interpretation Comments eGFR (test code = eGFR) 5 [place]282-06-28 04:12:00 Test Item Value Reference Range Interpretation Comments Procalcitonin Lvl (test 0.69 See_Comment [Au tomated message] code = Procalcitonin Lvl) Th e system which generated this result transmitted ref erence range: <=0.10. The reference range was not used to interpr et this result as normal/abnormal . [place] 155092-06-28 04:12:00 Test Item Value Reference Range Interpretation Comments WBC (test code = WBC) 4.1 3.7-10.4 [place] 155092-06-28 04:12:00 Test Item Value Reference Range Interpretation Comments RBC (test code = RBC) 1.78 4.70-6.10 [place] 155092-06-28 04:12:00 Test Item Value Reference Range Interpretation Comments Hgb (test code = Hgb) 6.5 14.0-18.0 [place] 155092-06-28 04:12:00 Test Item Value Reference Range Interpretation Comments Hct (test code = Hct) 19.5 42.0-54.0 [place] 155092-06-28 04:12:00 Test Item Value Reference Range Interpretation Comments MCV (test code = MCV) 110.0 80.0-94.0 [facility] CampusRnesrgqFRAWQCTPBH3144-34-54 04:12:00 Test Item Value Reference Range Interpretation Comments MCH (test code = MCH) 36.5 pg 27.0-31.0 [facility] CampusZrxpqleFAXGCMEEPP1490-72-70 04:12:00 Test Item Value Reference Range Interpretation Comments MCHC (test code = MCHC) 33.2 32.0-36.0 [facility] CampusTtyhmfnYZWSSSEAPV5196-23-99 04:12:00 Test Item Value Reference Range Interpretation Comments RDW (test code = RDW) 19.0 11.5-14.5 [facility] CampusFcmduayUTGTTSPCQE1949-20-92 04:12:00 Test Item Value Reference Range Interpretation Comments Platelet (test code = Platelet) 180 133-450 [facility] CampusQhcjorwMMAZOHBYOP2436-27-92 04:12:00 Test Item Value Reference Range Interpretation Comments MPV (test code = MPV) 8.3 7.4-10.4 [facility] CampusDjsqsepHQCCNAXKED7095-75-36 04:12:00 Test Item Value Reference Range Interpretation Comments PTT (test code = PTT) 45.4 s 22.9-35.8 [facility] CampusObfwbjvHAYZRNYGSR2611-50-18 04:12:00 Test Item Value Reference Range Interpretation Comments PT (test code = PT) 19.1 s 12.0-14.7 [facility] CampusDyevdeuGNFTQXQRFO1848-48-78 04:12:00 Test Item Value Reference Range Interpretation Comments INR (test code = INR) 1.62 1 0.85-1.17 [facility] CampusMgtlgbqFXQWTIXOQG1044-75-20 04:12:00 Test Item Value Reference Range Interpretation Comments RBC Morph (test code = See Note (11/24/21 RBC Morph) 11:12 PM) [facility] CampusYcathtkWDWLSHYKHV8890-90-98 04:12:00 Test Item Value Reference Range Interpretation Comments Plt Morph (test code = Normal (11/24/21 11:12 Plt Morph) PM) [facility] CampusBcmugraCSMJTMLLUZ8650-84-93 04:12:00 Test Item Value Reference Range Interpretation Comments Segs (test code = Segs) 72.2 45.0-75.0 [facility] CampusXqdnqhlWVLGKICWFN3210-63-98 04:12:00 Test Item Value Reference Range Interpretation Comments Lymphocytes (test code = Lymphocytes) 16.2 20.0-40.0 [place] 155092-06-28 04:12:00 Test Item Value Reference Range Interpretation Comments Monocytes (test code = Monocytes) 8.0 2.0-12.0 [place] 155092-06-28 04:12:00 Test Item Value Reference Range Interpretation Comments Eosinophils (test code = 2.7 See_Comment [A utomated message] The Eosinophils) system which ge nerated this result tra nsmitted reference range : <=4.0. The reference r samantha was not used to int erpret this result as normal/abnormal . [place] 155092-06-28 04:12:00 Test Item Value Reference Range Interpretation Comments Basophils (test code = 0.9 See_Comment [Aut omated message] The Basophils) system which ge nerated this result tra nsmitted reference range : <=1.0. The reference r samantha was not used to int erpret this result as normal/abnormal . [place] 155092-06-28 04:12:00 Test Item Value Reference Range Interpretation Comments Neutrophils # (test code = Neutrophils 2.9 1.5-8.1 #) [place] 155092-06-28 04:12:00 Test Item Value Reference Range Interpretation Comments Lymphocytes # (test code = Lymphocytes 0.7 1.0-5.5 #) [place] [address]-06-28 04:12:00 Test Item Value Reference Range Interpretation Comments Monocytes # (test code 0.3 See_Comment [Aut omated message] The = Monocytes #) system which generated this result tra nsmitted reference range : <=0.8. The reference r samantha was not used to int erpret this result as normal/abnormal . [facility] CampusDlknortHWQSSOLRMP1518-63-33 04:12:00 Test Item Value Reference Range Interpretation Comments Eosinophils # (test code 0.1 See_Comment [A utomated message] The = Eosinophils #) system whic h generated this result tra nsmitted reference range : <=0.5. The reference r samantha was not used to int erpret this result as normal/abnormal . [facility] CampusYodredpYZYNBHTOLY1430-75-60 04:12:00 Test Item Value Reference Range Interpretation Comments Anisocyte (test code = 1+ *ABN*(11/24/21 Anisocyte) 11:12 PM) [facility] CenterLdxvsvkZXSTBQRJPP3007-80-38 04:12:00 Test Item Value Reference Range Interpretation Comments Macrocyte (test code = 1+ *ABN*(11/24/21 Macrocyte) 11:12 PM) [facility] CenterWbprtthMTHHVEGQKB0285-94-76 04:12:00 Test Item Value Reference Range Interpretation Comments Microcyte (test code = 1+ *ABN*(11/24/21 Microcyte) 11:12 PM) [facility] SUPR XYAKZST9118-67-75 04:12:00 Test Item Value Reference Range Interpretation Comments ABO/Rh (test code = ABO/Rh) AB POS [facility] CenterDataFox SNBNFOS7311-10-91 04:12:00 Test Item Value Reference Range Interpretation Comments Antibody Scrn (test Negative (11/24/21 code = Antibody Scrn) 11:12 PM) [facility] [employer] FWUPTKA5046-33-59 04:12:00 Test Item Value Reference Range Interpretation Comments Total CK (test code = Total CK) 86 12-191 [facility] CenterStyleTech[facility] 04:12:00 Test Item Value Reference Range Interpretation Comments HS Troponin I (test code = HS Troponin 316 I) [facility] [employer] JPDEC0097-88-24 04:12:00 Test Item Value Reference Range Interpretation Comments Glucose Lvl (test code = Glucose Lvl) 261 70-99 [facility] [employer]2022-06-28 04:12:00 Test Item Value Reference Range Interpretation Comments BUN (test code = BUN) 60 7-22 [facility] [employer]2022-06-28 04:12:00 Test Item Value Reference Range Interpretation Comments Creatinine Lvl (test code = Creatinine 8.49 0.50-1.40 Lvl) [facility] [employer]2022-06-28 04:12:00 Test Item Value Reference Range Interpretation Comments Sodium Lvl (test code = Sodium Lvl) 133 135-145 [facility] [employer]2022-06-28 04:12:00 Test Item Value Reference Range Interpretation Comments Potassium Lvl (test code = Potassium 4.9 3.5-5.1 Lvl) [facility] [employer]2022-06-28 04:12:00 Test Item Value Reference Range Interpretation Comments Chloride Lvl (test code = Chloride Lvl) 93 95-109 [place] 506282-06-28 04:12:00 Test Item Value Reference Range Interpretation Comments CO2 (test code = CO2) 31 24-32 [place] 506282-06-28 04:12:00 Test Item Value Reference Range Interpretation Comments Calcium Lvl (test code = Calcium Lvl) 9.1 8.5-10.5 [place] 506282-06-28 04:12:00 Test Item Value Reference Range Interpretation Comments Total Protein (test code = Total 6.8 6.4-8.4 Protein) [place] 506282-06-28 04:12:00 Test Item Value Reference Range Interpretation Comments Albumin Lvl (test code = Albumin Lvl) 2.5 3.5-5.0 [place] 506282-06-28 04:12:00 Test Item Value Reference Range Interpretation Comments ALT (test code = ALT) 51 See_Comment [Auto mated message] The system which ge nerated this result transmit swathi reference range : <=65. The reference range was not used to interpr et this result as deny l/abnormal. [place] 506282-06-28 04:12:00 Test Item Value Reference Range Interpretation Comments AST (test code = AST) 36 See_Comment [Auto mated message] The system which ge nerated this result transmit swathi reference range : <=37. The reference range was not used to interpr et this result as deny l/abnormal. [place] 506282-06-28 04:12:00 Test Item Value Reference Range Interpretation Comments Alk Phos (test code = Alk Phos) 383 39-136 [place] 506282-06-28 04:12:00 Test Item Value Reference Range Interpretation Comments Bili Total (test code = Bili Total) 1.1 0.2-1.3 [place] 506282-06-28 04:12:00 Test Item Value Reference Range Interpretation Comments AGAP (test code = AGAP) 13.9 10.0-20.0 [place] 506282-06-28 04:12:00 Test Item Value Reference Range Interpretation Comments B/C Ratio (test code = B/C Ratio) 7 1 6-25 [place] 506282-06-28 04:12:00 Test Item Value Reference Range Interpretation Comments Globulin (test code = Globulin) 4.3 2.7-4.2 [facility]2022-06-28 04:12:00 Test Item Value Reference Range Interpretation Comments A/G Ratio (test code = A/G Ratio) 0.6 1 0.7-1.6 [place] 506282-06-28 04:12:00 Test Item Value Reference Range Interpretation Comments eGFR (test code = eGFR) 5 [place] 506282-06-28 04:12:00 Test Item Value Reference Range Interpretation Comments Procalcitonin Lvl (test 0.69 See_Comment [Au tomated message] code = Procalcitonin Lvl) Th e system which generated this result transmitted ref erence range: <=0.10. The reference range was not used to interpr et this result as normal/abnormal . [place] 155092-06-28 04:12:00 Test Item Value Reference Range Interpretation Comments WBC (test code = WBC) 4.1 3.7-10.4 [place] 155092-06-28 04:12:00 Test Item Value Reference Range Interpretation Comments RBC (test code = RBC) 1.78 4.70-6.10 [place] 155092-06-28 04:12:00 Test Item Value Reference Range Interpretation Comments Hgb (test code = Hgb) 6.5 14.0-18.0 [place] 155092-06-28 04:12:00 Test Item Value Reference Range Interpretation Comments Hct (test code = Hct) 19.5 42.0-54.0 [place] 155092-06-28 04:12:00 Test Item Value Reference Range Interpretation Comments MCV (test code = MCV) 110.0 80.0-94.0 [place] [id number] 04:12:00 Test Item Value Reference Range Interpretation Comments MCH (test code = MCH) 36.5 pg 27.0-31.0 [place] [id number] 04:12:00 Test Item Value Reference Range Interpretation Comments MCHC (test code = MCHC) 33.2 32.0-36.0 [place] 17917-06-28 04:12:00 Test Item Value Reference Range Interpretation Comments RDW (test code = RDW) 19.0 11.5-14.5 [facility]TnzjusyMUENBZWENJ8749-03-14 04:12:00 Test Item Value Reference Range Interpretation Comments Platelet (test code = Platelet) 180 133-450 [facility]PixhnpzSHKXTLKDEB7897-30-12 04:12:00 Test Item Value Reference Range Interpretation Comments MPV (test code = MPV) 8.3 7.4-10.4 [facility] CampusYhopyjnRWUBCBEJKR5121-04-48 04:12:00 Test Item Value Reference Range Interpretation Comments PTT (test code = PTT) 45.4 s 22.9-35.8 [facility] CampusTwppvyuXAGREKHENE5786-34-17 04:12:00 Test Item Value Reference Range Interpretation Comments PT (test code = PT) 19.1 s 12.0-14.7 [facility] CampusNgscdudFELGXVPWYC1933-28-84 04:12:00 Test Item Value Reference Range Interpretation Comments INR (test code = INR) 1.62 1 0.85-1.17 [facility] CampusMknjudvHLIBPRKASZ1444-92-08 04:12:00 Test Item Value Reference Range Interpretation Comments RBC Morph (test code = See Note (11/24/21 RBC Morph) 11:12 PM) [facility] CampusBbduqkkIVWJVFFGNV2609-58-39 04:12:00 Test Item Value Reference Range Interpretation Comments Plt Morph (test code = Normal (11/24/21 11:12 Plt Morph) PM) [facility] CampusHingbzbKLPAERPIJZ8609-81-90 04:12:00 Test Item Value Reference Range Interpretation Comments Segs (test code = Segs) 72.2 45.0-75.0 [facility] CampusZmnpuvhLJCRHTXXEI1907-79-19 04:12:00 Test Item Value Reference Range Interpretation Comments Lymphocytes (test code = Lymphocytes) 16.2 20.0-40.0 [facility] CampusSzkupdtGYKKRUFSGE2708-46-32 04:12:00 Test Item Value Reference Range Interpretation Comments Monocytes (test code = Monocytes) 8.0 2.0-12.0 [place] 155092-06-28 04:12:00 Test Item Value Reference Range Interpretation Comments Eosinophils (test code = 2.7 See_Comment [A utomated message] The Eosinophils) system which ge nerated this result tra nsmitted reference range : <=4.0. The reference r samantha was not used to int erpret this result as normal/abnormal . [facility] CampusUnpvytoZUVVRUZMYA7693-50-99 04:12:00 Test Item Value Reference Range Interpretation Comments Basophils (test code = 0.9 See_Comment [Aut omated message] The Basophils) system which ge nerated this result tra nsmitted reference range : <=1.0. The reference r samantha was not used to int erpret this result as normal/abnormal . [facility] CampusZrxxejdJPBJBASFLS9555-75-61 04:12:00 Test Item Value Reference Range Interpretation Comments Neutrophils # (test code = Neutrophils 2.9 1.5-8.1 #) [facility] CampusMhhidzcTZACPCLUVP4361-09-69 04:12:00 Test Item Value Reference Range Interpretation Comments Lymphocytes # (test code = Lymphocytes 0.7 1.0-5.5 #) [facility] CampusDiylnsdISSDDYAOIF9611-72-88 04:12:00 Test Item Value Reference Range Interpretation Comments Monocytes # (test code 0.3 See_Comment [Aut omated message] The = Monocytes #) system which generated this result tra nsmitted reference range : <=0.8. The reference r samantha was not used to int erpret this result as normal/abnormal . [facility] CampusItjwjhsWKPRQRTZCA3973-89-04 04:12:00 Test Item Value Reference Range Interpretation Comments Eosinophils # (test code 0.1 See_Comment [A utomated message] The = Eosinophils #) system whic h generated this result tra nsmitted reference range : <=0.5. The reference r samantha was not used to int erpret this result as normal/abnormal . [facility] CampusQnmodhmZXJJYVLUIT6186-20-22 04:12:00 Test Item Value Reference Range Interpretation Comments Anisocyte (test code = 1+ *ABN*(11/24/21 Anisocyte) 11:12 PM) [facility] CampusSmzkjrcMCQHDXLYKS7604-71-66 04:12:00 Test Item Value Reference Range Interpretation Comments Macrocyte (test code = 1+ *ABN*(11/24/21 Macrocyte) 11:12 PM) [facility] CampusDkzqeuzDFHHLVQQFC0150-42-72 04:12:00 Test Item Value Reference Range Interpretation Comments Microcyte (test code = 1+ *ABN*(11/24/21 Microcyte) 11:12 PM) [facility] [id number] 04:12:00 Test Item Value Reference Range Interpretation Comments ABO/Rh (test code = ABO/Rh) AB POS [facility] CenterChe[facility] DovunqueOOD BANK [id number] 04:12:00 Test Item Value Reference Range Interpretation Comments Antibody Scrn (test Negative (11/24/21 code = Antibody Scrn) 11:12 PM) [facility] CenterzeeWAVESAC OVMEASL4983-07-41 04:12:00 Test Item Value Reference Range Interpretation Comments Total CK (test code = Total CK) 86 12-191 [facility] CenterzeeWAVES [id number] 04:12:00 Test Item Value Reference Range Interpretation Comments HS Troponin I (test code = HS Troponin 316 I) [facility] [employer] [id number] 04:12:00 Test Item Value Reference Range Interpretation Comments Glucose Lvl (test code = Glucose Lvl) 261 70-99 [facility] [employer] [id number] 04:12:00 Test Item Value Reference Range Interpretation Comments BUN (test code = BUN) 60 7-22 [facility] [employer] [id number] 04:12:00 Test Item Value Reference Range Interpretation Comments Creatinine Lvl (test code = Creatinine 8.49 0.50-1.40 Lvl) [facility] [employer] [id number] 04:12:00 Test Item Value Reference Range Interpretation Comments Sodium Lvl (test code = Sodium Lvl) 133 135-145 [facility] [employer] [id number] 04:12:00 Test Item Value Reference Range Interpretation Comments Potassium Lvl (test code = Potassium 4.9 3.5-5.1 Lvl) [facility] [employer] [id number] 04:12:00 Test Item Value Reference Range Interpretation Comments Chloride Lvl (test code = Chloride Lvl) 93 95-109 [facility] [employer] [id number] 04:12:00 Test Item Value Reference Range Interpretation Comments CO2 (test code = CO2) 31 24-32 [facility] [employer] [id number] 04:12:00 Test Item Value Reference Range Interpretation Comments Calcium Lvl (test code = Calcium Lvl) 9.1 8.5-10.5 [facility] [employer] [id number] 04:12:00 Test Item Value Reference Range Interpretation Comments Total Protein (test code = Total 6.8 6.4-8.4 Protein) [facility] [employer] [id number] 04:12:00 Test Item Value Reference Range Interpretation Comments Albumin Lvl (test code = Albumin Lvl) 2.5 3.5-5.0 [facility] CenterDispatch [id number] 04:12:00 Test Item Value Reference Range Interpretation Comments ALT (test code = ALT) 51 See_Comment [Auto mated message] The system which ge nerated this result transmit swathi reference range : <=65. The reference range was not used to interpr et this result as deny l/abnormal. [facility] CenterDispatch [id number] 04:12:00 Test Item Value Reference Range Interpretation Comments AST (test code = AST) 36 See_Comment [Auto mated message] The system which ge nerated this result transmit swathi reference range : <=37. The reference range was not used to interpr et this result as deny l/abnormal. [facility] CenterDispatch [id number] 04:12:00 Test Item Value Reference Range Interpretation Comments Alk Phos (test code = Alk Phos) 383 39-136 [facility]Dispatch [id number] 04:12:00 Test Item Value Reference Range Interpretation Comments Bili Total (test code = Bili Total) 1.1 0.2-1.3 [facility] CenterDispatch [id number] 04:12:00 Test Item Value Reference Range Interpretation Comments AGAP (test code = AGAP) 13.9 10.0-20.0 [facility] [id number] 04:12:00 Test Item Value Reference Range Interpretation Comments B/C Ratio (test code = B/C Ratio) 7 1 6-25 [facility]Dispatch [id number] 04:12:00 Test Item Value Reference Range Interpretation Comments Globulin (test code = Globulin) 4.3 2.7-4.2 [facility] [id number] 04:12:00 Test Item Value Reference Range Interpretation Comments A/G Ratio (test code = A/G Ratio) 0.6 1 0.7-1.6 [facility]Dispatch [id number] 04:12:00 Test Item Value Reference Range Interpretation Comments eGFR (test code = eGFR) 5 [facility]Dispatch [id number] 04:12:00 Test Item Value Reference Range Interpretation Comments Procalcitonin Lvl (test 0.69 See_Comment [Au tomated message] code = Procalcitonin Lvl) Th e system which generated this result transmitted ref erence range: <=0.10. The reference range was not used to interpr et this result as normal/abnormal . [facility] CampusMlwmmobAIHYMXLEME3469-61-25 04:12:00 Test Item Value Reference Range Interpretation Comments WBC (test code = WBC) 4.1 3.7-10.4 [facility] CampusTpfvabgSTEIRADYRP6993-82-80 04:12:00 Test Item Value Reference Range Interpretation Comments RBC (test code = RBC) 1.78 4.70-6.10 [facility] CampusWekkybxRFULQVZHNU7656-19-55 04:12:00 Test Item Value Reference Range Interpretation Comments Hgb (test code = Hgb) 6.5 14.0-18.0 [facility] CampusPddkksxDOCNYVMNZE0354-14-84 04:12:00 Test Item Value Reference Range Interpretation Comments Hct (test code = Hct) 19.5 42.0-54.0 [facility] CampusXuuhvxaLQSPWERVKV2600-80-76 04:12:00 Test Item Value Reference Range Interpretation Comments MCV (test code = MCV) 110.0 80.0-94.0 [facility] CampusRxcaytuGPJNUCHKGV9350-23-53 04:12:00 Test Item Value Reference Range Interpretation Comments MCH (test code = MCH) 36.5 pg 27.0-31.0 [facility] CampusMllanamMHUNITWZAO7752-15-96 04:12:00 Test Item Value Reference Range Interpretation Comments MCHC (test code = MCHC) 33.2 32.0-36.0 [facility] CampusXwzlzpnCQQXTOXFXO6499-32-11 04:12:00 Test Item Value Reference Range Interpretation Comments RDW (test code = RDW) 19.0 11.5-14.5 [facility] CampusVjlvvvoBBVVWJEAFC7389-62-07 04:12:00 Test Item Value Reference Range Interpretation Comments Platelet (test code = Platelet) 180 133-450 [facility] CampusZxkhlsqOKCFRDRKKV6151-40-41 04:12:00 Test Item Value Reference Range Interpretation Comments MPV (test code = MPV) 8.3 7.4-10.4 [facility] CampusRuxfzpmEKMRNBGCDE2347-52-87 04:12:00 Test Item Value Reference Range Interpretation Comments PTT (test code = PTT) 45.4 s 22.9-35.8 [facility] CampusTrpqdogCEWEEXWQQQ2461-77-84 04:12:00 Test Item Value Reference Range Interpretation Comments PT (test code = PT) 19.1 s 12.0-14.7 [facility] CampusHeydiiyNIIJXGWAIK0623-08-72 04:12:00 Test Item Value Reference Range Interpretation Comments INR (test code = INR) 1.62 1 0.85-1.17 [place] 155092-06-28 04:12:00 Test Item Value Reference Range Interpretation Comments RBC Morph (test code = See Note (11/24/21 RBC Morph) 11:12 PM) [facility] CampusEmpncvrFOYGURVKAI7603-47-75 04:12:00 Test Item Value Reference Range Interpretation Comments Plt Morph (test code = Normal (11/24/21 11:12 Plt Morph) PM) [facility] CampusUqrmujtSMQEWOSWZJ8995-15-23 04:12:00 Test Item Value Reference Range Interpretation Comments Segs (test code = Segs) 72.2 45.0-75.0 [facility] CampusRquwwojIZKJCZACIA1496-13-96 04:12:00 Test Item Value Reference Range Interpretation Comments Lymphocytes (test code = Lymphocytes) 16.2 20.0-40.0 [facility] CampusUvxsdbcTNONFPFBCZ4106-48-60 04:12:00 Test Item Value Reference Range Interpretation Comments Monocytes (test code = Monocytes) 8.0 2.0-12.0 [facility] CampusRhwudfiYOOYXFSABF1910-09-02 04:12:00 Test Item Value Reference Range Interpretation Comments Eosinophils (test code = 2.7 See_Comment [A utomated message] The Eosinophils) system which ge nerated this result tra nsmitted reference range : <=4.0. The reference r samantha was not used to int erpret this result as normal/abnormal . [facility] CampusWbgonfhYNXGRRXICY2054-91-14 04:12:00 Test Item Value Reference Range Interpretation Comments Basophils (test code = 0.9 See_Comment [Aut omated message] The Basophils) system which ge nerated this result tra nsmitted reference range : <=1.0. The reference r samantha was not used to int erpret this result as normal/abnormal . [facility] CampusIqsffvsXDLIGPEWMY9942-99-05 04:12:00 Test Item Value Reference Range Interpretation Comments Neutrophils # (test code = Neutrophils 2.9 1.5-8.1 #) [place] [id number] 04:12:00 Test Item Value Reference Range Interpretation Comments Lymphocytes # (test code = Lymphocytes 0.7 1.0-5.5 #) [facility] CampusIxauamrLNPFAKHYOT7371-31-70 04:12:00 Test Item Value Reference Range Interpretation Comments Monocytes # (test code 0.3 See_Comment [Aut omated message] The = Monocytes #) system which generated this result tra nsmitted reference range : <=0.8. The reference r samantha was not used to int erpret this result as normal/abnormal . [facility] CampusVmtramfQBOSGPZNTW8755-55-62 04:12:00 Test Item Value Reference Range Interpretation Comments Eosinophils # (test code 0.1 See_Comment [A utomated message] The = Eosinophils #) system whic h generated this result tra nsmitted reference range : <=0.5. The reference r samantha was not used to int erpret this result as normal/abnormal . [facility] CampusCtbxewlCBQUENKTBY5684-04-43 04:12:00 Test Item Value Reference Range Interpretation Comments Anisocyte (test code = 1+ *ABN*(11/24/21 Anisocyte) 11:12 PM) [facility] CampusQtyclxyAKJMSQPPCM9677-93-25 04:12:00 Test Item Value Reference Range Interpretation Comments Macrocyte (test code = 1+ *ABN*(11/24/21 Macrocyte) 11:12 PM) [facility] CampusIcklhgdLKZNPGJNPG6097-31-68 04:12:00 Test Item Value Reference Range Interpretation Comments Microcyte (test code = 1+ *ABN*(11/24/21 Microcyte) 11:12 PM) [id number]:00:00 Test Item Value Reference Range Interpretation Comments A1C (test code = 4548-4) 8.8 HEMOGLOBIN [id number] 00:00:00 Test Item Value Reference Range Interpretation Comments A1C (test code = 4548-4) 8.3 HEMOGLOBIN [id number] 00:00:00 Test Item Value Reference Range Interpretation Comments A1C (test code = 4548-4) 10.3 Notes Date/Time Note Provider Source 2022-01-02 12:48:02-00:00 PROCEDURE INFORMATION: [facility] Exam: XR Chest Exam date [...] Chester Kemp MD On 01/02/2022 13:11:40; VR-KBRYA [id number] 3297-08-05 12:48:02-00:00 PROCEDURE INFORMATION: [facility] Exam: XR Chest Exam date [...] Chester Kemp MD On 01/02/2022 13:11:40; VR-KBRYA [id number] 4863-08-05 12:48:02-00:00 PROCEDURE INFORMATION: [facility] Exam: XR Chest Exam date [...] Chester Kemp MD On 01/02/2022 13:11:40; VR-KBRYA [id number] 8726-08-05 12:48:02-00:00 PROCEDURE INFORMATION: [facility] Exam: XR Chest Exam date [...] Chester Kemp MD On 01/02/2022 13:11:40; VR-KBRYA [id number] 6025-08-05 12:48:02-00:00 PROCEDURE INFORMATION: [facility] Exam: XR Chest Exam date [...] Chester Kemp MD On 01/02/2022 13:11:40; VR-KBRYA [id number] 4175-08-05 12:48:02-00:00 PROCEDURE INFORMATION: [facility] Exam: XR Chest Exam date [...] Chester Kemp MD On 01/02/2022 13:11:40; VR-KBRYA [id number] 9569-08-05 12:48:02-00:00 PROCEDURE INFORMATION: [facility] Exam: XR Chest Exam date [...] Chester Kemp MD On 01/02/2022 13:11:40; VR-KBRYA [id number] 6071-07-18 12:00:00-00:00 Radiation Dose CTDIVOL = 0 ( mGy): DLP = 1052.78 (mGy-cm) [facility] PROCEDURE INFORMATION: Exam: CTA Chest With Contrast Exam date and time: 12/15/2021 12:49 PM Age: 76 years old Clinical indication: /possible pe, positive for covid-19, respiratory infections and infla 12/14/21 TECHNIQUE: Imaging protocol: Computed tomographic a ngiography of the chest with contrast. 3D rendering (Not supervised by radiologist): [place] P and/or 3D reconstructed images were created [...] Alexis Maloney MD On 12/15/2021 15:45:07; VR- [id number] 2021-12-15 12:00:00-00:00 Radiation Dose CTDIVOL = 0 ( mGy): DLP = 1052.78 (mGy-cm) [facility] PROCEDURE INFORMATION: Exam: CTA Chest With Contrast Exam date and time: 12/15/2021 12:49 PM Age: 76 years old Clinical indication: /possible pe, positive for covid-19, respiratory infections and infla 12/14/21 TECHNIQUE: Imaging protocol: Computed tomographic a ngiography of the chest with contrast. 3D rendering (Not supervised by radiologist): [place] P and/or 3D reconstructed images were created [...] tracheobro nchial tree consistent with tracheobronchomalacia. Alexis Mlaoney MD On 12/15/2021 15:45:07; VR- [id number] 2021-12-15 12:00:00-00:00 Radiation Dose CTDIVOL = 0 ( mGy): DLP = 1052.78 (mGy-cm) [facility] PROCEDURE INFORMATION: Exam: CTA Chest With Contrast Exam date and time: 12/15/2021 12:49 PM Age: 76 years old Clinical indication: /possible pe, positive for covid-19, respiratory infections and infla 12/14/21 TECHNIQUE: Imaging protocol: Computed tomographic a ngiography of the chest with contrast. 3D rendering (Not supervised by radiologist): [place] P and/or 3D reconstructed images were created [...] Alexis Maloney MD On 12/15/2021 15:45:07; VR- [id number] 2021-12-15 12:00:00-00:00 Radiation Dose CTDIVOL = 0 ( mGy): DLP = 1052.78 (mGy-cm) [facility] PROCEDURE INFORMATION: Exam: CTA Chest With Contrast Exam date and time: 12/15/2021 12:49 PM Age: 76 years old Clinical indication: /possible pe, positive for covid-19, respiratory infections and infla 12/14/21 TECHNIQUE: Imaging protocol: Computed tomographic a ngiography of the chest with contrast. 3D rendering (Not supervised by radiologist): [place] P and/or 3D reconstructed images were created [...] Alexis Maloney MD On 12/15/2021 15:45:07; CARMELA- [id number] 2021-12-15 12:00:00-00:00 Radiation Dose CTDIVOL = 0 ( mGy): DLP = 1052.78 (mGy-cm) [facility] PROCEDURE INFORMATION: Exam: CTA Chest With Contrast Exam date and time: 12/15/2021 12:49 PM Age: 76 years old Clinical indication: /possible pe, positive for covid-19, respiratory infections and infla 12/14/21 TECHNIQUE: Imaging protocol: Computed tomographic a ngiography of the chest with contrast. 3D rendering (Not supervised by radiologist): [place] P and/or 3D reconstructed images were created [...] Alexis Maloney MD On 12/15/2021 15:45:07; VR- [id number] 2021-12-15 12:00:00-00:00 Radiation Dose CTDIVOL = 0 ( mGy): DLP = 1052.78 (mGy-cm) [facility] PROCEDURE INFORMATION: Exam: CTA Chest With Contrast Exam date and time: 12/15/2021 12:49 PM Age: 76 years old Clinical indication: /possible pe, positive for covid-19, respiratory infections and infla 12/14/21 TECHNIQUE: Imaging protocol: Computed tomographic a ngiography of the chest with contrast. 3D rendering (Not supervised by radiologist): [place] P and/or 3D reconstructed images were created [...] Alexis Maloney MD On 12/15/2021 15:45:07; CARMELA- [id number] 2021-12-15 12:00:00-00:00 Radiation Dose CTDIVOL = 0 ( mGy): DLP = 1052.78 (mGy-cm) [facility] PROCEDURE INFORMATION: Exam: CTA Chest With Contrast Exam date and time: 12/15/2021 12:49 PM Age: 76 years old Clinical indication: /possible pe, positive for covid-19, respiratory infections and infla 12/14/21 TECHNIQUE: Imaging protocol: Computed tomographic a ngiography of the chest with contrast. 3D rendering (Not supervised by radiologist): [place] P and/or 3D reconstructed images were created [...] Alexis Maloney MD On 12/15/2021 15:45:07; CARMELA- [id number] 2021-12-14 15:50:31-00:00 PROCEDURE INFORMATION: [facility] Exam: XR Chest Exam date [...] 16:21:28; SHARRI [id number] 2021-12-14 15:50:31-00:00 PROCEDURE INFORMATION: [facility] Exam: XR Chest Exam date [...] 16:21:28; SHARRI [id number] 2021-12-14 15:50:31-00:00 PROCEDURE INFORMATION: [facility] Exam: XR Chest Exam date [...] 16:21:28; SHARRI [id number] 2021-12-14 15:50:31-00:00 PROCEDURE INFORMATION: [facility] Exam: XR Chest Exam date [...] 16:21:28; SHARRI [id number]__[id number] 2021-12-14 15:50:31-00:00 PROCEDURE INFORMATION: [facility] Exam: XR Chest Exam date [...] 16:21:28; SHARRI [id number] 2021-12-14 15:50:31-00:00 PROCEDURE INFORMATION: [facility] Exam: XR Chest Exam date [...] base. Chester Back MD On 12/14/2021 16:21:28; CARMELA-C [id number] 2021-12-14 15:50:31-00:00 PROCEDURE INFORMATION: [facility] Exam: XR Chest Exam date [...] base. Chester Back MD On 12/14/2021 16:21:28; VR-C [id number] 2021-12-03 20:30:42-00:00 PROCEDURE INFORMATION: [facility] Exam: XR Chest Exam date [...] Avtar Fortune MD On 12/03/2021 21:17:23; VR-KPATE0 [id number] 2021-12-03 20:30:42-00:00 PROCEDURE INFORMATION: [facility] Exam: XR Chest Exam date [...] Avtar Fortune MD On 12/03/2021 21:17:23; VR-KPATE0 [id number] 2021-12-03 20:30:42-00:00 PROCEDURE INFORMATION: [facility] Exam: XR Chest Exam date [...] Avtar Fortune MD On 12/03/2021 21:17:23; VR-KPATE0 [id number] 2021-12-03 20:30:42-00:00 PROCEDURE INFORMATION: [facility] Exam: XR Chest Exam date [...] Avtar Fortune MD On 12/03/2021 21:17:23; VR-KPATE0 [id number] 2021-12-03 20:30:42-00:00 PROCEDURE INFORMATION: [facility] Exam: XR Chest Exam date [...] Avtar Fortune MD On 12/03/2021 21:17:23; VR-KPATE0 [id number] 2021-12-03 20:30:42-00:00 PROCEDURE INFORMATION: [facility] Exam: XR Chest Exam date [...] Avtar Fortune MD On 12/03/2021 21:17:23; VR-KPATE0 [id number] 2021-12-03 20:30:42-00:00 PROCEDURE INFORMATION: [facility] Exam: XR Chest Exam date [...] Avtar Fortune MD On 12/03/2021 21:17:23; VR-KPATE0 [id number] 2021-11-25 05:45:00-00:00 PROCEDURE INFORMATION: [facility] Exam: US Duplex Lower Extremity [...] Cole Barnes MD On 11/25/2021 07:01:56; VR-GSYN [id number] 2021-11-25 05:45:00-00:00 PROCEDURE INFORMATION: [facility] Exam: US Abdomen, Limited; Right [...] Kit Pollard MD On 11/25/2021 07:54:47; VR -[id number] 2021-11-25 05:45:00-00:00 PROCEDURE INFORMATION: [facility] Exam: US Duplex Lower Extremity [...] Cole Barnes MD On 11/25/2021 07:01:56; VR-GSYN [id number] 2021-11-25 05:45:00-00:00 PROCEDURE INFORMATION: [facility] Exam: US Abdomen, Limited; Right [...] Kit Pollard MD On 11/25/2021 07:54:47; VR -[id number] 2021-11-25 05:45:00-00:00 PROCEDURE INFORMATION: [facility] Exam: US Duplex Lower Extremity [...] Cole Barnes MD On 11/25/2021 07:01:56; VR-GSYN [id number] 2021-11-25 05:45:00-00:00 PROCEDURE INFORMATION: [facility] Exam: US Abdomen, Limited; Right [...] Kit Pollard MD On 11/25/2021 07:54:47; VR -[id number] 2021-11-25 05:45:00-00:00 PROCEDURE INFORMATION: [facility] Exam: US Duplex Lower Extremity [...] Cole Barnes MD On 11/25/2021 07:01:56; VR-GSYN [id number] 2021-11-25 05:45:00-00:00 PROCEDURE INFORMATION: [facility] Exam: US Abdomen, Limited; Right [...] Kit Pollard MD On 11/25/2021 07:54:47; VR [id number] 2021-11-25 05:45:00-00:00 PROCEDURE INFORMATION: [facility] Exam: US Duplex Lower Extremity [...] Cole Barnes MD On 11/25/2021 07:01:56; VR-GSYN [id number] 2021-11-25 05:45:00-00:00 PROCEDURE INFORMATION: [facility] Exam: US Abdomen, Limited; Right [...] Kit Pollard MD On 11/25/2021 07:54:47; VR [id number] 2021-11-25 05:45:00-00:00 PROCEDURE INFORMATION: [facility] Exam: US Duplex Lower Extremity [...] Cole Barnes MD On 11/25/2021 07:01:56; VR-GSYN [id number] 2021-11-25 05:45:00-00:00 PROCEDURE INFORMATION: [facility] Exam: US Abdomen, Limited; Right [...] Kit Pollard MD On 11/25/2021 07:54:47; VR [id number] 2021-11-25 05:45:00-00:00 PROCEDURE INFORMATION: [facility] Exam: US Duplex Lower Extremity [...] Cole Barnes MD On 11/25/2021 07:01:56; VR-GSYN [id number] 2021-11-25 05:45:00-00:00 PROCEDURE INFORMATION: [facility] Exam: US Abdomen, Limited; Right [...] Kit Pollard MD On 11/25/2021 07:54:47; VR [id number] 2021-11-25 02:17:08-00:00 PROCEDURE INFORMATION: [facility] Exam: XR Right Foot Exam [...] Surendra Chavis MD On 11/25/2021 02:27:52; [id number] 2021-11-25 02:17:08-00:00 PROCEDURE INFORMATION: [facility] Exam: XR Right Foot Exam [...] Surendra Chavis MD On 11/25/2021 02:27:52; [id number] 2021-11-25 02:17:08-00:00 PROCEDURE INFORMATION: [facility] Exam: XR Right Foot Exam [...] Surendra Chavis MD On 11/25/2021 02:27:52; [id number] 2021-11-25 02:17:08-00:00 PROCEDURE INFORMATION: [facility] Exam: XR Right Foot Exam [...] Surendra Chavis MD On 11/25/2021 02:27:52; [id number] 2021-11-25 02:17:08-00:00 PROCEDURE INFORMATION: [facility] Exam: XR Right Foot Exam [...] Surendra Chavis MD On 11/25/2021 02:27:52; [id number] 2021-11-25 02:17:08-00:00 PROCEDURE INFORMATION: [facility] Exam: XR Right Foot Exam [...] Surendra Chavis MD On 11/25/2021 02:27:52; [id number] 2021-11-25 02:17:08-00:00 PROCEDURE INFORMATION: [facility] Exam: XR Right Foot Exam [...] Surendra Chavis MD On 11/25/2021 02:27:52; [id number] 2021-11-24 23:56:05-00:00 Radiation Dose CTDIVOL = 0 ( mGy): DLP = 675.2 (mGy-cm) [facility] PROCEDURE INFORMATION: Exam: CT Abdomen [...] additional nonacute findings. COMMENTS: Consistent with the [employer] Incidental Findings [employer] [...] Surendra Chavis MD On 11/25/2021 00:47:46; [id number] 2021-11-24 23:56:05-00:00 Radiation Dose CTDIVOL = 0 ( mGy): DLP = 675.2 (mGy-cm) [facility] PROCEDURE INFORMATION: Exam: CT Abdomen [...] additional nonacute findings. COMMENTS: Consistent with the [employer] Incidental Findings [employer] [...] Surendra Chavis MD On 11/25/2021 00:47:46; [id number] 2021-11-24 23:56:05-00:00 Radiation Dose CTDIVOL = 0 ( mGy): DLP = 675.2 (mGy-cm) [facility] PROCEDURE INFORMATION: Exam: CT Abdomen [...] additional nonacute findings. COMMENTS: Consistent with the [employer] Incidental Findings [employer] [...] Surendra Chavis MD On 11/25/2021 00:47:46; [id number] 2021-11-24 23:56:05-00:00 Radiation Dose CTDIVOL = 0 ( mGy): DLP = 675.2 (mGy-cm) [facility] PROCEDURE INFORMATION: Exam: CT Abdomen [...] additional nonacute findings. COMMENTS: Consistent with the [employer] Incidental Findings [employer] [...] Surendra Chavis MD On 11/25/2021 00:47:46; [id number] 2021-11-24 23:56:05-00:00 Radiation Dose CTDIVOL = 0 ( mGy): DLP = 675.2 (mGy-cm) [facility] PROCEDURE INFORMATION: Exam: CT Abdomen [...] additional nonacute findings. COMMENTS: Consistent with the [employer] Incidental Findings Committee [...] Surendra Chavis MD On 11/25/2021 00:47:46; [id number] 2021-11-24 23:56:05-00:00 Radiation Dose CTDIVOL = 0 ( mGy): DLP = 675.2 (mGy-cm) [facility] PROCEDURE INFORMATION: Exam: CT Abdomen [...] additional nonacute findings. COMMENTS: Consistent with the [employer] Incidental Findings Committee white paper (J Am Vandana Radiol 2018): Any incidental renal lesion less than 1 cm or classified as too small to characterize, or any incidental cystic renal lesion characterized as simple-akykay earing, is likely benign. No follow-up imaging is recommended for t hese lesions per consensus recommendations based on imaging criteria. Surendra Chavis MD On 11/25/2021 00:47:46; [id number] 2021-11-24 23:56:05-00:00 Radiation Dose CTDIVOL = 0 ( mGy): DLP = 675.2 (mGy-cm) [facility] PROCEDURE INFORMATION: Exam: CT Abdomen [...] additional nonacute findings. COMMENTS: Consistent with the [employer] Incidental Findings Committee [...] Surendra Chavis MD On 11/25/2021 00:47:46; [id number] 2021-11-24 22:50:28-00:00 PROCEDURE INFORMATION: [facility] Exam: XR Chest Exam date [...] Surendra Chavis MD On 11/24/2021 22:53:49; [id number] 2021-11-24 22:50:28-00:00 [facility]: XR Chest Exam date [...] Surendra Chavis MD On 11/24/2021 22:53:49; [id number] 2021-11-24 22:50:28-00:00 PROCEDURE INFORMATION: [facility] Exam: XR Chest Exam date [...] Surendra Chavis MD On 11/24/2021 22:53:49; [id number] 2021-11-24 22:50:28-00:00 PROCEDURE INFORMATION: [facility] Exam: XR Chest Exam date [...] Surendra Chavis MD On 11/24/2021 22:53:49; [id number] 2021-11-24 22:50:28-00:00 PROCEDURE INFORMATION[facility]: XR Chest Exam date [...] Surendra Chavis MD On 11/24/2021 22:53:49; [id number] 2021-11-24 22:50:28-00:00 [facility] IN[facility]: XR Chest Exam date [...] Surendra Chavis MD On 11/24/2021 22:53:49; [id number] 2021-11-24 22:50:28-00:00 PROCEDURE INFORMATION: [facility] Exam: XR Chest Exam date [...] Surendra Chavis MD On 11/24/2021 22:53:49; [id number]
[2023-01-22 17:13] LABS: Absolute Lymphocytes (CBC) 0.6 K/uL (0.7-4.9); Hematocrit 19.8 % (39.6-49.0); MCV 85.5 fL (80-100); MPV 7.5 fL (7.6-11.3); Platelets 134 thou/uL (152-406); RBC Red Blood Cell Count 2.32 M/uL (4.33-5.43)
[2023-01-22 17:19] LABS: Albumin 3.1 g/dL (3.4-5.0); Bilirubin Total 1.1 mg/dL (0.2-1.0); Protein, Total 7.1 g/dL (6.4-8.2)
--- NOTE | 2023-01-22 17:54 | EDPHYS ---
Physician Documentation [facility] Name: Guzman Mayers Age: 77 yrs Sex: Male : 1945 Arrival Date: 01/22/2023 Time: 15:52 Bed 13 Private MD: [facility] ED Physician Arya Rivera HPI: 01/22 17:44 This 77 yrs old Male presents to ER via Wheelchair with complaints of Blood rt Transfusion. 17:44 Patient with history of ESRD, chronic anemia presents to the ED with reported anemia rt after dialysis today. His hemoglobin was reportedly 6.1. Patient states that he feels weak, somewhat foggy. Denies any bleeding or other acute complaints. Symptoms are moderate in severity, no other aggravating alleviating factors.. Historical: - Allergies: 16:05 Codeine; cm10 16:05 GABAPENTIN; cm10 - PMHx: 16:05 ADD/ADHD; blood transfusion; CHF; CKD; Diabetes - IDDM; Dialysis; MWF; COPD; High cm10 Cholesterol; HTN; Hypertension; - PSHx: 16:05 L arm dialysis access; cm10 - Immunization history:: Adult Immunizations unknown. - Social history:: Smoking status: unknown. - Family history:: not pertinent. ROS: 17:44 Constitutional: Negative for fever, chills, and weight loss, Cardiovascular: Negative rt for chest pain, palpitations, and edema, Respiratory: Negative for shortness of breath, cough, wheezing, and pleuritic chest pain, Abdomen/GI: Negative for abdominal pain, nausea, vomiting, diarrhea, and constipation, Skin: Negative for injury, rash, and discoloration, Psych: Negative for depression, anxiety, suicide ideation, homicidal ideation, and hallucinations. 17:44 Neuro: Positive for weakness, Negative for altered mental status. Exam: 17:44 Constitutional: This is a well developed, well nourished patient who is awake, alert, rt and in no acute distress. Head/Face: Normocephalic, atraumatic. Chest/axilla: Normal chest wall appearance and motion. Nontender with no deformity. No lesions are appreciated. Cardiovascular: Regular rate and rhythm with a normal S1 and S2. No gallops, murmurs, or rubs. Normal PMI, no JVD. No pulse deficits. Respiratory: Lungs have equal breath sounds bilaterally, clear to auscultation and percussion. No rales, rhonchi or wheezes noted. No increased work of breathing, no retractions or nasal flaring. Abdomen/GI: Soft, non-tender, with normal bowel sounds. No distension or tympany. No guarding or rebound. No evidence of tenderness throughout. Skin: Warm, dry with normal turgor. Normal color with no rashes, no lesions, and no evidence of cellulitis. MS/ Extremity: Pulses equal, no cyanosis. Neurovascular intact. Full, normal range of motion. Neuro: Awake and alert, GCS 15, oriented to person, place, time, and situation. Cranial nerves II-XII grossly intact. Motor strength 5/5 in all extremities. Sensory grossly intact. Cerebellar exam normal. Normal gait. Psych: Awake, alert, with orientation to person, place and time. Behavior, mood, and affect are within normal limits. Vital Signs: 16:03 BP 127 / 42; Pulse 59; Resp 18; Temp 97.7; Pulse Ox 99% ; Weight 74.84 kg; Height 5 ft. cm10 10 in. ; Pain 0/10; 16:45 BP 122 / 62; Pulse 57; Resp 16; Pulse Ox 99% on R/A; db 17:30 BP 125 / 50; Pulse 53; Resp 16; Pulse Ox 95% on R/A; db 18:15 BP 122 / 48; Pulse 57; Resp 16; Pulse Ox 100% on R/A; db 16:03 Body Mass Index 23.67 (74.84 kg, 177.8 cm) cm10 16:03 Pain Scale: Adult cm10 MDM: 16:09 Patient medically screened. rt 17:44 Differential Diagnosis Anemia of chronic disease, hemorrhage. Data reviewed: vital rt signs, nurses notes. Consideration of Admission/Observation Patient was admitted/placed on observation. Management of patient was discussed with the following: Hospitalist: Agrees to admit. Customer Supply Chain Analyst: Discussed with the patient's sales representative uniforms, recommends 2 units of PRBCs to be given, recommends admission for observation, will do short run of dialysis tomorrow to pull off the extra fluid.. Care significantly affected by the following chronic conditions: Chronic Kidney Disease. Counseling: I had a detailed discussion with the patient and/or guardian regarding the historical points, exam findings, and any diagnostic results supporting the discharge/admit diagnosis, lab results, the need for further work-up and treatment in the hospital. 01/22 16:08 Order name: CBC with Diff; Complete Time: 17:32 rt 01/22 16:08 Order name: CMP; Complete Time: 17:25 rt 01/22 16:08 Order name: Type And Screen rt 01/22 18:19 Order name: Urinalysis w/ reflexes EDMS 01/22 18:19 Order name: CBC with Automated Diff EDMS 01/22 18:19 Order name: Packed RBC Leukored EDMS 01/22 18:19 Order name: Hematocrit EDMS 01/22 18:19 Order name: Hemoglobin EDMS 01/22 18:19 Order name: CONS Physician Consult EDMS 01/22 18:19 Order name: Renal EDMS Administered Medications: No medications were administered Disposition Summary: 01/22/23 17:53 Hospitalization Ordered Hospitalization Status: Observation rt Provider: Tim Thompson rt Location: Telemetry/MedSurg (observation) rt Condition: Stable rt Problem: an ongoing problem rt Symptoms: are unchanged rt Bed/Room Type: Standard rt Room Assignment: 211(01/22/23 18:49) dw Diagnosis - Symptomatic anemia rt - End-stage renal disease rt Forms: - Medication Reconciliation Form rt - SBAR form rt - Leadership Thank You Letter rt Signatures: Dispatcher [employer] Nimo Del Valle RN RN dw Arya Rivera MD MD rt Chantal Yoon RN RN cm10 Corrections: (The following items were deleted from the chart) 18:49 17:53 rt dw
--- NOTE | 2023-01-22 17:54 | ER ---
Nurse's Notes [facility] Name: Guzman Mayers Age: 77 yrs Sex: Male : 1945 Arrival Date: 01/22/2023 Time: 15:52 Bed 13 Private MD: Naveed Fortune Diagnosis: Symptomatic anemia;End-stage renal disease Presentation: 01/22 16:03 Chief complaint: Patient states: had labs yesterday and was told that he needed to come cm10 to the ED for a blood transfusion for a HGB of 6.1. Pt had dialysis today. Pt states that he feels "dopey". Coronavirus screen: Vaccine status: Patient reports receiving the 2nd dose of the covid vaccine. Ebola Screen: Patient denies travel to an Ebola-affected area in the 21 days before illness onset. No symptoms or risks identified at this time. Initial Sepsis Screen: Does the patient meet any 2 criteria? No. Patient's initial sepsis screen is negative. Does the patient have a suspected source of infection? No. Patient's initial sepsis screen is negative. Risk Assessment: Do you want to hurt yourself or someone else? Patient reports no desire to harm self or others. Onset of symptoms was January 22, 2023. 16:03 Method Of Arrival: Wheelchair cm10 16:03 Acuity: CHICHO 3 cm10 Historical: - Allergies: 16:05 Codeine; cm10 16:05 GABAPENTIN; cm10 - PMHx: 16:05 ADD/ADHD; blood transfusion; CHF; CKD; Diabetes - IDDM; Dialysis; MWF; COPD; High cm10 Cholesterol; HTN; Hypertension; - PSHx: 16:05 L arm dialysis access; cm10 - Immunization history:: Adult Immunizations unknown. - Social history:: Smoking status: unknown. - Family history:: not pertinent. Screenin:03 [facility] ED Fall Risk Assessment (Adult) History of falling in the last 3 months, db including since admission No falls in past 3 months (0 pts) Confusion or Disorientation No (0 pts) Intoxicated or Sedated No (0 pts) Impaired Gait No (0 pts) Mobility Assist Device Used No (0 pt) Altered Elimination No (0 pt) Score/Fall Risk Level 0 - 2 = Low Risk Oriented to surroundings, Maintained a safe environment. Abuse screen: Denies threats or abuse. Denies injuries from another. Nutritional screening: No deficits noted. Tuberculosis screening: No symptoms or risk factors identified. Assessment: 17:02 Reassessment: Patient appears in no apparent distress at this time. Patient and/or db family updated on plan of care and expected duration. Pain level reassessed. Patient is alert, oriented x 3, equal unlabored respirations, skin warm/dry/pink. Reassessment: COMPLAINS OF GENERAL WEAKNESS.. LAST DIALYSIS TODAY. FISTULA TO LEFT ARM. General: Appears in no apparent distress. comfortable, Behavior is calm, cooperative. Pain: Denies pain. Neuro: Level of Consciousness is awake, alert, obeys commands, Oriented to person, place, time, situation. 17:50 Reassessment: Patient appears in no apparent distress at this time. PATIENT SIGNED db CONSENT AND PHYSICIAN SIGNED CONSENT FOR BLOOD PRODUCTS. 18:30 Reassessment: Patient appears in no apparent distress at this time. Patient and/or db family updated on plan of care and expected duration. Pain level reassessed. Patient is alert, oriented x 3, equal unlabored respirations, skin warm/dry/pink. 18:53 Reassessment: ATTEMPTED TO GIVE REPORT TO 2ND FLOOR FOR 211. NURSE IS NOT READY FOR db REPORT DUE TO SHIFT CHANGE. Vital Signs: 16:03 BP 127 / 42; Pulse 59; Resp 18; Temp 97.7; Pulse Ox 99% ; Weight 74.84 kg; Height 5 ft. cm10 10 in. ; Pain 0/10; 16:45 BP 122 / 62; Pulse 57; Resp 16; Pulse Ox 99% on R/A; db 17:30 BP 125 / 50; Pulse 53; Resp 16; Pulse Ox 95% on R/A; db 18:15 BP 122 / 48; Pulse 57; Resp 16; Pulse Ox 100% on R/A; db 16:03 Body Mass Index 23.67 (74.84 kg, 177.8 cm) cm10 16:03 Pain Scale: Adult cm10 ED Course: 15:53 Patient arrived in ED. mr 15:53 Naveed Fortune DO is Private Physician. mr 16:04 Arya Rivera MD is Attending Physician. rt 16:05 Triage completed. cm10 16:05 Arm band placed on Patient placed in an exam room. cm10 16:33 Sandee Katz, RN is Primary Nurse. db 16:45 Inserted saline lock: 20 gauge in right antecubital area, using aseptic technique. db Blood collected. 17:04 Patient has correct armband on for positive identification. Bed in low position. Call db light in reach. Side rails up X2. Client placed on continuous cardiac and pulse oximetry monitoring. NIBP monitoring applied. Warm blanket given. 17:53 Tim Thompson MD is Hospitalizing Provider. rt 19:21 No provider procedures requiring assistance completed. Patient admitted, IV remains in ha1 place. 19:24 Provided Education on: need for admit. ha1 Administered Medications: No medications were administered Medication: 19:22 VIS not applicable for this client. ha1 Outcome: 17:53 Decision to Hospitalize by Provider. rt 19:21 Admitted to Med/surg accompanied by tech, via stretcher, room 211, with chart, Report ha1 called to GILSON García 19:23 Condition: stable ha1 19:23 Discharge instructions given to patient, Instructed on the need for admit, Demonstrated understanding of instructions. 19:29 Patient left the ED. ha1 Signatures: Kelly Sahni mr Tawaan Soto, RN RN ha1 Sandee Katz, RN RN Arya Salmeron MD MD rt Chantal Yoon, GILSON RN cm10 Corrections: (The following items were deleted from the chart) 17:03 17:02 General: Appears in no apparent distress. comfortable, Behavior is calm, db cooperative, db 17:03 17:02 Reassessment: COMPLAINS OF GENERAL WEAKNESS.. LAST DIALYSIS TODAY. db db
--- NOTE | 2023-01-22 18:10 | P.HP ---
Certification for Inpatient Patient admitted to: Observation With expected LOS: <2 Midnights Patient will require the following post-hospital care: None Practitioner: I am a practitioner with admitting privileges, knowledge of patient current condition, hospital course, and medical plan of care. Services: Services provided to patient in accordance with Admission requirements found in Title 42 Section 412.3 of the Code of Federal Regulations Patient History Date of Service: 01/22/23 Reason for admission: Symptomatic anemia History of Present Illness: 77-year-old male with history of anemia of chronic disease, ESRD on HD MWF with noncompliance, atrial fibrillation not on chronic anticoagulation, COPD on home O2-2.5 Liters, insulin-dependent diabetes, hypertension, hyperlipidemia presents emerged part with chief complaint of symptomatic anemia. He denies rectal bleeding, abdominal pain, patient was referred by general practitioner for low hemoglobin. Patient reports mild dizziness and weakness worse with ambulation. He denies shortness of breath, cough, chest pain, edema. Patient reports he went to dialysis today. He reported hemoglobin 6.1, ER evaluation blood pressure on arrival to the ER 127/40, heart rate 59, respirations 18 afebrile temperature 97.7, 99% on room air, hemoglobin 6.8, hematocrit 19.6, WBCs low 3.70, hyponatremia 135 hypokalemia 3.0, end-stage renal disease on hemodialysis BUN 11 creatinine 1.74, blood glucose 211, estimated GFR 40, alk phos of elevated at 355, hopple albumin 3.1 Plan to admit for symptomatic anemia, end-stage renal disease on hemodialysis . Allergies codeine Allergy (Verified 09/29/22 22:59) Hallucinations gabapentin Adverse Reaction (Verified 09/29/22 22:59) Hallucinations Home Medications: Atorvastatin Calcium 40 mg PO BEDTIME 09/10/22 Carvedilol [Coreg] 12.5 mg PO BID 09/10/22 Pantoprazole [Protonix Tab*] 40 mg PO DAILY 09/10/22 Aspirin [Aspirin EC 81 MG] 81 mg PO DAILY 11/08/22 Metoprolol Tartrate [Lopressor*] 12.5 mg PO BID 11/08/22 Cyclobenzaprine [Flexeril*] 5 mg PO TIDP PRN 12/26/22 Hydrocodone Bit/Acetaminophen [[place] 7.5-325 Tablet] 1 tab PO BIDP PRN 12/26/22 Polyethylene Glycol 3350 [Miralax] 1 packet PO DAILY 12/26/22 Sennosides/Docusate Sodium [Stool Softener-Stim Lax Tablet] 1 tab PO DAILY 12/26/22 - Past Medical/Surgical History Diabetic: Yes -: Hypertension -: Hyperlipidemia -: Diabetes type 2, insulin dependent -: End-stage renal disease, hemodialysis-Wednesday, Wednesday, Wednesday -: Diastolic CHF -: COPDon home O2 -: Anemia of chronic disease -: 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 He has 3 children - Family History mother and father -: Hypertension Notes: adopted - Social History Alcohol use: No CD- Drugs: No Caffeine use: No Review of Systems 10-point ROS is otherwise unremarkable Physical Examination - Physical Exam General: Alert, In no apparent distress, Oriented x3 HEENT: Atraumatic, Normocephalic, PERRLA Neck: Supple, 2+ carotid pulse no bruit, JVD not distended Respiratory: Clear to auscultation bilaterally, Normal air movement Cardiovascular: No edema, Normal pulses, Regular rate/rhythm Capillary refill: <2 Seconds Gastrointestinal: Normal bowel sounds, Soft and benign, Non-distended Musculoskeletal: No clubbing, No swelling Integumentary: No rashes, No breakdown Neurological: Normal gait, Normal speech, Normal strength at 5/5 x4 extr - Studies Laboratory Data (last 24 hrs) 01/22/23 01/22/23 16:48 16:48 WBC 3.70 L Hgb 6.8 L Hct 19.8 L Plt Count 134 L Sodium 135 L Potassium 3.0 L BUN 11 Creatinine 1.74 H Glucose 211 H Total Bilirubin 1.1 H AST 25 ALT 27 Alkaline Phosphatase 355 H Assessment and Plan - Plan Assessment plan Symptomatic anemia End-stage renal disease on hemodialysis MWF Hypokalemia Constipation Anemia of chronic disease Hyperlipidemia Acute on chronic heart failure Chronic back pain Diabetes mellitus noninsulin-dependent DVT prophylaxis Assessment plan Symptomatic anemia Anemia of chronic disease Trend H&H, transfuse less than 7 Type and cross 2 units, trend H&H, Transfuse 2 units per nephrology hemoglobin 6.8, hematocrit 19.6 End-stage renal disease on hemodialysis Nephrology consult plan to do hemodialysis in the a.m., Nephrology consulted in the emergency room BUN 11 creatinine 1.74, Constipation Start stool softeners Hypokalemia Trend electrolytes replace as needed Diabetes mellitus type 2insulin-dependent with hyperglycemia ACHS Accu-Chek, mild sliding scale insulin, continue medications. blood glucose 211, Chronic atrial fibrillation not on chronic anticoagulation He has required multiple blood transfusions in the past has severe anemia of chronic disease, for this reason he is not on anticoagulation. Continue SCDs. Restart home beta-jose Chronic diastolic congestive heart failure Hypertension hyperlipidemia Continue home medications Worsening chronic back pain Outpatient follow-up with pain management Renal diet Full code DVT SCDs Discharge Plan: Home Plan to discharge in: 24 Hours - Advance Directives Does patient have a Living Will: No Does patient have a Durable POA for Healthcare: No - Code Status/Comfort Care Code Status: Full Code Physician Review: Patient Assessed, Agree with Above Assessment and Plan Time Spent Managing Pts Care (In Minutes): 50
[2023-01-22] MEDS ORDERED: DIPHENHYDRAMINE 50 MG/ML VIAL IV ONE (18:17)
[2023-01-22] MEDS ORDERED: ALPRAZOLAM 0.25 MG TABLET PO PRN (18:17)
[2023-01-22] MEDS ORDERED: ONDANSETRON 4 MG/2 ML VIAL IV PRN (18:17)
[2023-01-22] MEDS ORDERED: ACETAMINOPHEN 500 MG TAB PO ONE (18:17)
[2023-01-22] MEDS ORDERED: D50W 25 GM/50 ML SYRINGE IV PRN (18:21)
[2023-01-22] MEDS ORDERED: IPRATROPIUM BROM 0.5MG/2.5ML NEB PRN (18:21)
[2023-01-22] MEDS ORDERED: GLUCAGON 1 MG/VIAL IM PRN (18:21)
[2023-01-22] MEDS ORDERED: ALBUTEROL 2.5 MG/3 ML NEB SOL NEB PRN (18:21)
[2023-01-22] MEDS ORDERED: D10W 125 ML IV PRN (18:28)
[2023-01-22] MEDS ORDERED: NA CHLORIDE 0.9% 250 ML IV SCH (19:00)
[2023-01-22] MEDS ORDERED: POLYETHYL GLY 3350 17 GM/DOSE PO PRN (19:50)
[2023-01-22] MEDS ORDERED: FUROSEMIDE 20 MG/ 2ML VIAL IV ONE (20:00)
[2023-01-22] MEDS ORDERED: NA CHLORIDE 0.9% 250 ML ONE (20:59)
[2023-01-22] MEDS: carvediloL 12.5 MG TAB PO SCH (21:00)
[2023-01-22] MEDS: HYDROCODONE/APAP 5/325 MG TAB PO PRN ×2 (21:00→23:41)
[2023-01-22] MEDS: SENOSIDES 8.6 MG TAB PO SCH (21:00)
[2023-01-22] MEDS: INSULIN -REGULAR HUMAN 50 UNIT/0.5 ML ML SQ SCH (21:00)
[2023-01-22] MEDS ORDERED: POTASSIUM CL SA 10 MEQ TAB PO ONE (21:08)
[2023-01-22] MEDS: METOPROLOL TAR 25 MG TAB PO SCH (22:05)
[2023-01-23] MEDS ORDERED: NA CHLORIDE 0.9% 250 ML ONE (00:52)
[2023-01-23 01:06] VITALS: BMI 22.6
[2023-01-23 06:29] LABS: Absolute Lymphocytes (CBC) 0.7 K/uL (0.7-4.9); Hematocrit 21.8 % (39.6-49.0); MCV 84.8 fL (80-100); MPV 7.2 fL (7.6-11.3); Platelets 121 thou/uL (152-406); RBC Red Blood Cell Count 2.57 M/uL (4.33-5.43)
[2023-01-23 06:51] LABS: Albumin 2.8 g/dL (3.4-5.0); Bilirubin Total 1.7 mg/dL (0.2-1.0); Magnesium 2.2 mg/dL (1.6-2.4); Phosphorus 1.6 mg/dL (2.5-4.9); Potassium 3.3 mEq/L (3.5-5.1); Protein, Total 6.3 g/dL (6.4-8.2)
[2023-01-23] MEDS: INSULIN -REGULAR HUMAN 50 UNIT/0.5 ML ML SQ SCH (07:30)
[2023-01-23] MEDS ORDERED: POTASSIUM 25 MEQ EFFERV TAB PO ONE (08:01)
[2023-01-23 08:34] VITALS: BP 109/53; TEMP 98.9
[2023-01-23] MEDS ORDERED: ASPIRIN EC 81 MG TAB PO SCH (09:00)
[2023-01-23] MEDS ORDERED: PANTOPRAZOLE 40MG TABLET PO SCH (09:00)
[2023-01-23] MEDS: POTASS/SODIUM PHOSPHATE 1 PKT POWD.PACK PO SCH ×2 (09:00→09:21)
[2023-01-23] MEDS: carvediloL 12.5 MG TAB PO SCH (09:21)
[2023-01-23] MEDS: METOPROLOL TAR 25 MG TAB PO SCH (09:22)
[2023-01-23] MEDS: SENOSIDES 8.6 MG TAB PO SCH (09:22)
[2023-01-23 09:57] VITALS: O2SAT 92
--- NOTE | 2023-01-23 11:28 | P.DS ---
Admission Date: 01/22/23 Discharge Date: 01/23/23 Disposition: ROUTINE DISCHARGE Reason for Admission: Symptomatic anemia - Problems (1) Anemia in ESRD (end-stage renal disease) Status: Acute (2) Atrial fibrillation Status: Chronic Qualifiers: Atrial fibrillation type: paroxysmal Qualified Code(s): I48.0 - Paroxysmal atrial fibrillation (3) ESRD (end stage renal disease) on dialysis Status: Chronic (4) Hypertension Status: Chronic Qualifiers: Hypertension type: primary hypertension Qualified Code(s): I10 - Essential (primary) hypertension (5) Type 2 diabetes mellitus Status: Chronic Qualifiers: 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 He denies rectal bleeding, abdominal pain. Patient was referred by general practitioner for low hemoglobin. Patient reports mild dizziness and weakness worse with ambulation. He denied shortness of breath, cough, chest pain, edema. Patient reported he went to dialysis. He reported hemoglobin 6.1, ER showed hemoglobin of hemoglobin 6.8, hematocrit 19.6, WBCs low 3.70. Patient hospitalized for further management. Hospital Course: Patient placed on observation on medical floor and transfused 2 unit PRBC. Posttransfusion hemoglobin is up to 7.5. Patient is asymptomatic with stable vitals and stable for discharge. No changes made in his home medications. Patient will follow-up with nephrology as outpatient for further management of his anemia. Vital Signs/Physical Exam: Temp Pulse Resp BP Pulse Ox 98.9 F 56 16 109/53 L 97 01/23/23 08:00 01/23/23 08:00 01/23/23 08:00 01/23/23 08:00 01/23/23 08:00 General: Alert, In no apparent distress, Oriented x3 HEENT: Mucous membr. moist/pink Neck: Supple, JVD not distended Respiratory: Clear to auscultation bilaterally, Normal air movement Cardiovascular: No edema, Normal S1 S2, Irregular heart rate/rhythm Gastrointestinal: Normal bowel sounds, Soft and benign, Non-distended Integumentary: No cyanosis Neurological: Normal strength at 5/5 x4 extr Laboratory Data at Discharge: WBC 4.80 thou/uL (4.3-10.9) 01/23/23 06:07 Hgb 7.5 g/dL (13.6-17.9) L D 01/23/23 06:07 Hct 21.8 % (39.6-49.0) L 01/23/23 06:07 Plt Count 121 thou/uL (152-406) L 01/23/23 06:07 Sodium 137 mEq/L (136-145) 01/23/23 06:07 Potassium 3.3 mEq/L (3.5-5.1) L 01/23/23 06:07 BUN 20 mg/dL (7-18) H 01/23/23 06:07 Creatinine 2.40 mg/dL (0.70-1.30) H 01/23/23 06:07 Glucose 115 mg/dL (74-106) H 01/23/23 06:07 Phosphorus 1.6 mg/dL (2.5-4.9) L 01/23/23 06:07 Magnesium 2.2 mg/dL (1.6-2.4) 01/23/23 06:07 Total Bilirubin 1.7 mg/dL (0.2-1.0) H 01/23/23 06:07 AST 21 U/L (15-37) 01/23/23 06:07 ALT 24 U/L (16-61) 01/23/23 06:07 Alkaline Phosphatase 309 U/L (45-117) H 01/23/23 06:07 Home Medications: Atorvastatin Calcium 40 mg PO BEDTIME 09/10/22 Carvedilol [Coreg] 12.5 mg PO BID 09/10/22 Pantoprazole [Protonix Tab*] 40 mg PO DAILY 09/10/22 Aspirin [Aspirin EC 81 MG] 81 mg PO DAILY 11/08/22 Metoprolol Tartrate [Lopressor*] 12.5 mg PO BID 11/08/22 Cyclobenzaprine [Flexeril*] 5 mg PO TIDP PRN 12/26/22 Sennosides/Docusate Sodium [Stool Softener-Stim Lax Tablet] 1 tab PO DAILY 12/26/22 Oxycodone HCl/Acetaminophen [Oxycodone-Acetaminophen 10-325] 1 each PO Q8HP PRN 01/23/23 Followup: Naveed Fortune, [Primary Care Provider] - Time spent managing pt's care (in minutes): 25
== END 2023-01-23 11:20 | disposition home or self-care (01) ==
LOC: ER 15:52 → ERHOLD 18:10 → 2ND 19:21
PROVIDERS: ADMIT Internal Medicine; ATTEND Internal Medicine
PROC: 30233N1 Transfusion of Nonautologous Red Blood Cells into Peripheral Vein, Percutaneous Approach (ICD-10-PCS; principal; 2023-01-22)
DX: D64.9 Anemia, unspecified (principal); E11.22 Type 2 diabetes mellitus with diabetic chronic kidney disease; I12.0 Hypertensive chronic kidney disease with stage 5 chronic kidney disease or end stage renal disease; I48.11 Longstanding persistent atrial fibrillation; N18.6 End stage renal disease; J44.9 Chronic obstructive pulmonary disease, unspecified; D63.1 Anemia in chronic kidney disease; K59.00 Constipation, unspecified; E87.6 Hypokalemia; E11.65 Type 2 diabetes mellitus with hyperglycemia; M54.9 Dorsalgia, unspecified; Z79.01 Long term (current) use of anticoagulants; Z99.2 Dependence on renal dialysis; Z99.81 Dependence on supplemental oxygen; Z88.6 Allergy status to analgesic agent; Z88.8 Allergy status to other drugs, medicaments and biological substances; Z79.4 Long term (current) use of insulin
CPT/HCPCS: 85025 ×2; 36415; 86900; 83735; 86850; 84100; 86901; 82947 ×2; 86920 ×2; 80053 ×2; 94760 ×2; 99285; 36430; J1815; J1940; J1200; P9016 ×2; J7050 ×2; G0378

== ENCOUNTER 2023-02-08 13:36 | Inpatient (IN) | payer OTHER, BC ==
[2023-02-08 14:18] LABS: Absolute Lymphocytes (CBC) 0.4 K/uL (0.7-4.9); Hematocrit 17.5 % (39.6-49.0); Lymphocytes % 15.8 % (15.3-44.8); MCV 85.5 fL (80-100); Platelets 149 thou/uL (152-406); RBC Red Blood Cell Count 2.04 M/uL (4.33-5.43)
[2023-02-08] MEDS ORDERED: MORPHINE 4 MG/ML SYR ONE (14:24)
--- OUTSIDE RECORDS SUMMARY | 2023-02-08 14:24 | XMS REPORT | Continuity of Care Document ---
:1945 Author Organization [facility] [place] [facility] t Address [address] [facility]. [address] [place] [address] Care Team Providers Name Role Phone LA FORTUNE Primary Care Physician Unavailable La Fortune Attending Clinician Unavailable [id number] Attending Clinician Unavailable RONNIE AYALA Attending Clinician [...] Velazquez Attending Clinician Pepper Crawford Attending Clinician [phone] PEPPER CRAWFORD Attending Clinician Unavailable MONSE VELAZQUEZ Attending Clinician Unavailable CHILANGO ARMSTRONG NATASHA Attending Clinician Unavailable [id number] Admitting Clinician Unavailable RONNIE AYALA Admitting Clinician Unavailable MINE MOSQUEDA Admitting Clinician Unavailable Mine Mosqueda DO Admitting Clinician ZACHARY BRUNO Admitting Clinician Unavailable Zachary Bruno Admitting Clinician Monse Velazquez Admitting Clinician MONSE VELAZQUEZ Admitting Clinician Unavailable CHILANGO ARMSTRONG NATASHA Admitting Clinician Unavailable Payers Payer Name Policy Type Policy Effective Date Expiration Date Sour ce Number MEDICARE PART A [id number] 2011 AND B 00:00:00 MEDICARE PART A [id number] 2010 \\T\\ B 00:00:00 BCBS TRADITIONAL [id number] 2014 00:00:00 [employer] Blue 6 [id number] 2014 [facility] 00:00:00 - [facility] [id number] BCTX BCTI [id number] MEDICARE NOVITAS [id number] 2011 [facility] 00:00:00 - [facility] MEDICARE NOVITAS [id number] 2011 [facility] 00:00:00 - [facility] MEDICARE NOVITAS [id number] 2011 [facility] 00:00:00 [facility] Problems Condition Condition Condition Status Onset Resolution Last Treating Co mments Source Name Details Category Date Date Treatment Clinician Date E46 E46 Disease Active Univers Unspecifie Unspecifie 5-16 it y of d severe d severe 00:00: [place] protein-ca protein-ca 00 Me dical ajay ajay Branch malnutriti malnutriti on on Elevated Elevated Disease Active Unive rs troponin I troponin I 5-14 it y of level level 00:00: [place] 00 Medical Branch Elevated Elevated Disease Active [...] 5-14 it y of on on 00:00: [place] [facility] Branch Syncope Syncope Disease Active Univers 5-14 ity of 00:00: [place] [address] Medical Branch Anemia Anemia Disease Active Univers associated associated 5-14 it y of with with 00:00: [place] nutritiona nutritiona 00 Me dical l Branch deficiency deficiency Dyslipidem Dyslipidem Disease Active U nivers ia ia 5-14 ity of 00:00: [place] [facility] Bifascicul Bifascicul Disease Active U nivers ar block ar block 5-14 ity of 00:00: [place] [facility] Atrial Atrial Disease Active Univers flutter flutter 5-14 ity of 00:00: [place] [facility] Branch Encephalop Encephalop Disease Active U nivers athy athy 5-14 ity of 00:00: [place] [facility] Hypoglycem Hypoglycem Disease Active U nivers ia ia 5-13 ity of 00:00: [place] [facility] LOW LOW Diagnosis Active 2022-01-02 Mem oria HEMOGLOBIN HEMOGLOBIN 01-02 12:51:00 l COUNT/ COUNT/ 00:00: [place] NEEDING NEEDING 00 DIALYZED DIALYZED Active 01/02/2022 Kimber Celeste PNA DUE TO PNA DUE Diagnosis Active 2022-08-31 Memoria COVID-19 TO 12-14 21:48:00 l VIRUS COVID-19 00:00: [place] VIRUS 00 Active 12/14/2021 Kimber Celeste DIFFICULTY DIFFICULT Diagnosis Active 2021-12-14 Memoria BREATHING Y 12-14 17:56:00 l BREATHING 00:00: [place] Active 00 12/14/[address] [facility] [place] ABNORNAL ABNORNAL Diagnosis Active 2021-12-16 Memoria LAB LAB Active 12-03 05:50:00 l 12/03/2021 08:00: Thomas moyer [place] [address] [place] ANEMIA, ANEMIA, Diagnosis Active 2021-12-16 Memoria COVID-19 COVID-19 11-24 05:50:00 l Active 00:00: [place] 11/24/[address] [facility] [place] LOW LOW Diagnosis Active 2021-11-24 Mem oria HEMOGOBLIN HEMOGOBLIN 11-24 23:20:00 l Active 00:00: [place] 11/24/2021 [facility] Cellulitis Cellulitis Disease Active U nivers of right of right 12-29 ity of leg leg 00:00: [address] [id number] Other Problem Common obesity Spirit due to - [facility] excess [facility] [id number] Metabolic Problem Com mon syndrome Spirit - [facility] [id number] Body mass Problem Com mon index Spirit [BMI] - CHI 30.0-30.9, [facility] [id number] Frailty Problem Commo n syndrome Spirit in - [facility] ger[facility] 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 - 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 chronic - CHI renal St failure) [facility] Chronic Chronic Problem Common systolic systolic Spirit heart congestive - CHI failure heart failure [facility] [id number] 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 - [facility] [id number] GERD Problem Common without Spirit esophagiti - CHI s [facility] [id number] Type 2 Problem Common diabetes Spirit mellitus - CHI with [facility] [id number] Mixed Problem Common hyperlipid Spirit emia - [facility] [id number] Noncomplia Problem Co mmon nce of Spirit patient - CHI with [facility] Chronic Chronic Problem Common atrial atrial Spirit fibrillati fibrillati - CHI on on [facility] [id number] 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 Chronic Chronic Problem Common obstructiv obstructiv Sp jerome e lung e - [facility] d [facility] Center type [id number] Heart Problem Common failure, Spirit congestive - CHI , etiology [facility] Primary Primary Problem Common insomnia insomnia Spirit - [facility] Hyp hrt & Hyp hrt & Problem Com mon chr kdny chr kdny Spirit dis w hrt dis w hrt - CH I fail and w fail and w St stg 5 chr stg 5 chr Luke s kdny/ESRD kdny/ESRD [facility] [id number] Other Problem Common chronic Spirit pain - [facility] [id number] Compressio Problem Co mmon n fracture Spirit of L1 - CHI vertebra with [facility] delayed Medical healing, Center subsequent encounter [id number] Constipati Problem Com mon on, Spirit unspecifie - CHI d constipati [facility] [id number] Memory Problem Common impairment Spirit of gradual - CHI onset [facility] [id number] HTN, goal Problem Comm on below Spirit 130/80 - CHI [facility] [id number] Anemia of Problem Com mon chronic Spirit disease - CH[facility] [id number] 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 [facility] [id number] Benign Problem Common prostatic Spirit hyperplasi - CHI a without [facility] urinary Medical tract Center symptoms Hypertroph Obstructiv Problem C ommon ic e Spirit 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 [facility] Hypertensi Hypertensi Problem C ommon ve heart ve chronic Spir it AND kidney - CHI chronic disease St kidney with stage [facility] disease 5 chronic Medica l [...] 12-04 21:45:40 21:45:40 l d d 06:34: [place] 12/04/2021 00 12/06/2021 [facility] [place] [facility] Allergies, Adverse Reactions, Alerts Allergy Allergy Status Severity Reaction(s) Onset Inactive Treating Comm ents Source Name Type Date Date Clinician Gabapent Propensi Active Unknown - Uni vers in ty to See comments - ity of adverse 00:00: [place] reaction 00 Medical s Branch Hydrocod Propensi Active Unknown - Uni vers one ty to See comments 5- ity of adverse 00:00: [place] reaction 00 [...] Unknown Commo n in in Spirit [facility] codeine codeine Active Unknown [facility] codeine codeine Active Memoria l [place] gabapent gabapent Active Memori a in in l [place] Social History Social Habit Start Date Stop Date Quantity Comments Source History of tobacco Cigarette Smoker University of use [place] [facility] History SDOH University o f Alcohol Std Drinks [place] [facility] History SDOH University o f Alcohol Binge [place] [facility] History SDOH Social Unive rsity of [facility] Med ical Together Branch History SDOH Social Unive rsity of [facility] Medical Branch History SDOH Social Unive rsity of [facility] Medical Membership Branch History SDOH Social Unive rsity of [facility] Branch Alcohol intake 2022-10-31 2022-10-31 Ex-drinker [...] University o f Housing Homeless 00:00:00 00:00:00 [place] Me dical Last Year Branch Tobacco use and 2022-10-11 2022-10-11 Smokeless Universit y of exposure 00:00:00 00:00:00 tobacco non-user [facility] [place] [facility] dical [place] Tobacco Comment 2022-10-11 2022-10-11 pt has not Universit y of 00:00:00 00:00:00 smoked sice age [facility] ical 19 Branch Exposure to 2022-09-30 2022-10-10 Not sure [facility]-CoV-2 (event) 00:00:00 13:56:00 [facility] Sex Ass[birth year] At [birth year] Universit y of 00:00:00 00:00:00 [facility] Smoking Status Start Date Stop Date Source Social History 2021-12-04 02:37:37 2021-12-04 02:37:37 [facility] Medications Ordered Filled Start Stop Current Ordering Indication Dosage Frequency Signature Comments Components Source Medication Medication Date Date Medication? Clinician (SIG) Name Name traMADol traMADol No QD traMADol HCl 50 MG HCl 50 MG 6-09 HCl 50 MG 00:00: 00 traMADol traMADol No QD traMADol HCl 50 MG HCl 50 MG 6-09 HCl 50 MG 00:00: 00 aspirin 81 Yes [id number] 81mg Take 1 Univers mg EC 5-19 tablet by ity of tablet 00:00: mouth in [place] 00 the Medical morning. Branch aspirin 81 Yes [id number] 81mg Take 1 Univers mg EC 5-19 tablet by ity of tablet 00:00: mouth in [place] 00 the Medical morning. Branch aspirin 81 Yes [id number] 81mg Take 1 Univers mg EC 5-19 tablet by ity of tablet 00:00: mouth in [place] 00 the Medical morning. Branch citalopram Yes 20mg Take 1 Unive rs 20 mg 5-18 tablet by ity of tablet 14:40: mouth in [place] 23 the Medical morning. Branch atorvastati Yes 40mg Take 40 mg Univers n (LIPITOR) 5-18 by mouth ity of 40 mg 14:40: at [facility] 23 bedtime. Medical Branch MULTIVITAMI Yes 1{tbl} Take 1 Tab Univers NS WITH 5-18 by mouth ity of EXTRA C 14:40: daily. [place] ORAL 23 Medical Branch citalopram Yes 20mg Take 1 Unive rs 20 mg 5-18 tablet by ity of tablet 14:40: mouth in [place] [address] the Medical morning. Branch atorvastati Yes 40mg Take 40 mg Univers n (LIPITOR) 5-18 by mouth ity of 40 mg 14:40: at [facility] 23 bedtime. Medical Branch MULTIVITAMI Yes 1{tbl} Take 1 Tab Univers NS WITH 5-18 by mouth ity of EXTRA C 14:40: daily. [place] ORAL 23 Medical Branch citalopram Yes 20mg Take 1 Unive rs 20 mg 5-18 tablet by ity of tablet 14:40: mouth in [place] [address] the Medical morning. Branch atorvastati Yes 40mg Take 40 mg Univers n (LIPITOR) 5-18 by mouth ity of 40 mg 14:40: at [facility] 23 bedtime. Medical Branch MULTIVITAMI Yes 1{tbl} Take 1 Tab Univers NS WITH 5-18 by mouth ity of EXTRA C 14:40: daily. [place] ORAL 23 Medical Branch pantoprazol 2022- No 40mg Take 1 Uni vers e 40 mg EC 5-18 05-18 tablet by ity of tablet 14:28: 00:00 mouth in [place] 51 :00 the Medical morning. Branch ondansetron [...] ity of tablet 12:58: 00:00 mouth in [place] 33 :00 the Medical morning. Branch spironolact 2022- No 25mg Take 25 mg Univers one 5-18 05-18 by mouth ity of (SPIRONOLAC 12:58: 00:00 daily. [place] as TONE) 25 mg 33 :00 Medical tablet Branch INSULIN 2022- No 52U inject 52 Univ ers GLARGINE,HU 5-18 05-18 Units ity of M.REC.ANLOG 12:58: 00:00 under the [place] (LANTUS 33 :00 skin every Medica l SOLOSTAR morning. Branch ND) carvediloL 2022-0 Yes [id number] 6.25mg Take 1 Univers 6.25 mg 5-18 tablet by ity of tablet 00:00: mouth in [place] 00 the morning Branch and 1 tablet in the evening. Take with meals. pantoprazol 2022-0 Yes [id number] 40mg Take 1 Univers e 40 mg EC 5-18 tablet by ity of tablet 00:00: mouth in [place] 00 the morning. Branch carvediloL 2022-0 Yes [id number] 6.25mg Take 1 Univers 6.25 mg 5-18 tablet by ity of tablet 00:00: mouth in [place] [address] the morning Branch and 1 tablet in the evening. Take with meals. pantoprazol 2022-0 Yes [id number] 40mg Take 1 Univers e 40 mg EC 5-18 tablet by ity of tablet 00:00: mouth in [place] 00 the morning. Branch carvediloL 2022-0 Yes [id number] 6.25mg Take 1 Univers 6.25 mg 5-18 tablet by ity of tablet 00:00: mouth in [place] [address] the morning Branch and 1 tablet in the evening. Take with meals. pantoprazol 2022-0 Yes [id number] 40mg Take 1 Univers e 40 mg EC 5-18 tablet by ity of tablet 00:00: mouth in [place] 00 the morning. Branch amoxicillin 2022-0 2022- No [id number] 500mg Take 1 Univers -pot 5-18 05-26 tablet by ity of clavulanate 00:00: 04:59 [place] 500 mg 00 :00 every 24 Medical (AUGMENTIN) (twenty-fo Br anch 500-125 mg ur) hours tablet for 7 days. amoxicillin 2022-0 2022- No [id number] 500mg Take 1 Univers -pot 5-18 05-26 [...] Medic al VIAL-MATE dose, On Branch IV [facility] piggyback 10/12/22 at 1600, Administer over 90 Minutes, 250 mL
Reas on for Anti-Infec tive: Documented Infection< br>Documen swathi Infection Site: Blood<br&g t;Duration of Therapy: 7 days methocarbam 0 Yes 750mg 750 mg, Un arnie oL 5-15 Oral, ity of (ROBAXIN) 13:06: TIDPRN, Nigel tablet 750 58 Starting Medic al mg on [facility] 10/12/22 at 0806, Until Discontinu ed, Routine, Muscle Spasms atorvastati 0 Yes 40mg 40 mg, Univ ers n (LIPITOR) 5-15 Oral, QHS, it y of tablet 40 02:00: First dose [place] mg 00 on [facility] 10/11/22 at Branch 2100, Until Discontinu ed, Routine docusate 0 Yes 100mg 100 mg, Unive rs (COLACE) 5-15 Oral, BID, ity o f capsule 100 01:30: First dose [place] mg 00 on [facility] 10/11/22 at Branch 2030, Until Discontinu ed, Routine aspirin EC 2022-0 Yes 81mg 81 mg, Unive rs tablet 81 5-14 Oral, ity of mg 14:00: DAILY, [place] 00 First dose Medical on [facility] 10/11/22 at 0900, Until Discontinu [...] No 10mg Take 10 mg Univers (SINGULAIR) 14 -13 by mouth ity of 10 mg 07:29: [...] at 2200, Until Discontinu ed, Routine Sliding 0 Yes Subcutaneo Univ ers Scale 5-14 us, [...] No 1000mL at 100 Uni vers NaCl 10-1014 mL/hr, ity of (1/2NS) IV 20:30: 01:27 [...] chew. [place] 00 (Same As: Ecotrin) Procardia 0 No Notes: Memori a XL 30 mg 7-20 (Same as: l oral 14:00: Adalat CC, [place] tablet, 00 Procardia extended XL) Give release on empty stomach. Take 1 hour before or 2 hours after meal; "Avoid grapefruit and grapefruit juice". Do not crush Epogen No Notes: Memoria (ESRD) 7-20 Same as: l 14:00: Retacrit) [place] 00 epoetin shannon-epbx 16936 unit/1 ml VL. For dialysis use only. WASTE: F/P - Red; E Red MEDICATION WASTE Product Size: 86714 unit Product Wasted: ___ unit aspirin No Notes: Do Memor ia 7-20 not crush l 14:00: or chew. [place] 00 (Same As: Ecotrin) Procardia No Notes: Memori a XL 30 mg 7-20 (Same as: l oral 14:00: Adalat CC, [place] tablet, 00 Procardia extended XL) Give release on empty stomach. Take 1 hour before or 2 hours after meal; "Avoid grapefruit and grapefruit juice". Do not crush Epogen No Notes: Memoria (ESRD) 7-20 Same as: l 14:00: Retacrit) [place] 00 epoetin shannon-epbx 37334 unit/1 ml VL. For dialysis use only. WASTE: F/P - Red; E Red MEDICATION WASTE Product Size: 37798 unit Product Wasted: ___ unit aspirin No [...] l 14:00: Retacrit) [place] 00 epoetin shannon-epbx 85930 unit/1 ml VL. For dialysis use only. WASTE: F/P - Red; E Red MEDICATION WASTE Product Size: 21718 unit Product Wasted: ___ unit aspirin No Notes: Do Memor ia 7-20 not crush l 14:00: or chew. [place] 00 (Same As: Ecotrin) Procardia No Notes: Memori a XL 30 mg 7-20 (Same as: l oral 14:00: Adalat CC, [place] tablet, 00 Procardia extended XL) Give release on empty stomach. Take 1 hour before or 2 hours after meal; "Avoid grapefruit and grapefruit juice". Do not crush Epogen No Notes: Memoria (ESRD) 7-20 Same as: l 14:00: Retacrit) [place] 00 epoetin shannon-epbx 55755 unit/1 ml VL. For dialysis use only. WASTE: F/P - Red; E Red MEDICATION WASTE Product Size: 96414 unit Product Wasted: ___ unit aspirin No Notes: Do Memor ia 7-20 not crush l 14:00: or chew. [place] 00 (Same As: Ecotrin) Procardia No Notes: Memori a XL 30 mg 7-20 (Same as: l oral 14:00: Adalat CC, [place] tablet, 00 Procardia extended XL) Give release on empty stomach. Take 1 hour before or 2 hours after meal; "Avoid grapefruit and grapefruit juice". Do not crush Epogen No Notes: Memoria (ESRD) 7-20 Same as: l 14:00: Retacrit) [place] 00 epoetin shannon-epbx 84527 unit/1 ml VL. For dialysis use only. WASTE: F/P - Red; E Red MEDICATION WASTE Product Size: 33251 unit Product Wasted: ___ unit aspirin No Notes: Do Memor ia 7-20 not crush l 14:00: or chew. [place] 00 (Same As: Ecotrin) Procardia No Notes: Memori a XL 30 mg 7-20 (Same as: l oral 14:00: Adalat CC, [place] tablet, 00 Procardia extended XL) Give release on empty stomach. Take 1 hour before or 2 hours after meal; "Avoid grapefruit and grapefruit juice". Do not crush Epogen No Notes: Memoria (ESRD) 7-20 Same as: l 14:00: Retacrit) [place] 00 epoetin shannon-epbx 59522 unit/1 ml VL. For dialysis use only. WASTE: F/P - Red; E Red MEDICATION WASTE Product Size: 53995 unit Product Wasted: ___ unit aspirin No Notes: Do Memor ia 7-20 not crush l 14:00: or chew. [place] 00 (Same As: Ecotrin) Procardia No Notes: Memori a XL 30 mg 7-20 (Same as: l oral 14:00: Adalat CC, [place] tablet, 00 Procardia extended XL) Give release on empty stomach. Take 1 hour before or 2 hours after meal; "Avoid grapefruit and grapefruit juice". Do not crush Epogen No Notes: Memoria (ESRD) 7-20 Same as: l 14:00: Retacrit) [place] 00 epoetin shannon-epbx 26785 unit/1 ml VL. For dialysis use only. WASTE: F/P - Red; E Red MEDICATION WASTE Product Size: 85194 unit Product Wasted: ___ unit aspirin No Notes: Do Memor ia 7-20 not crush l 14:00: or chew. [place] 00 (Same As: Ecotrin) Procardia No Notes: Memori a XL 30 mg 7-20 (Same as: l oral 14:00: Adalat CC, [place] tablet, 00 Procardia extended XL) Give release on empty stomach. Take 1 hour before or 2 hours after meal; "Avoid grapefruit and grapefruit juice". Do not crush Epogen No Notes: Memoria (ESRD) 7-20 Same as: l 14:00: Retacrit) [place] 00 epoetin shannon-epbx 80216 unit/1 ml VL. For dialysis use only. WASTE: F/P - Red; E Red MEDICATION WASTE Product Size: 01854 unit Product Wasted: ___ unit aspirin No [...] l 14:00: Retacrit) [place] 00 epoetin shannon-epbx 39773 unit/1 ml VL. For dialysis use only. WASTE: F/P - Red; E Red MEDICATION WASTE Product Size: 95440 unit Product Wasted: ___ unit aspirin No Notes: Do Memor ia 7-20 not crush l 14:00: or chew. [place] 00 (Same As: Ecotrin) Procardia No Notes: Memori a XL 30 mg 7-20 (Same as: l oral 14:00: Adalat CC, [place] tablet, 00 Procardia extended XL) Give release on empty stomach. Take 1 hour before or 2 hours after meal; "Avoid grapefruit and grapefruit juice". Do not crush Epogen No Notes: Memoria (ESRD) 7-20 Same as: l 14:00: Retacrit) [place] 00 epoetin shannon-epbx 00369 unit/1 ml VL. For dialysis use only. WASTE: F/P - Red; E Red MEDICATION WASTE Product Size: 35625 unit Product Wasted: ___ unit aspirin No Notes: Do Memor ia 7-20 not crush l 14:00: or chew. [place] 00 (Same As: Ecotrin) Procardia No Notes: Memori a XL 30 mg 7-20 (Same as: l oral 14:00: Adalat CC, [place] tablet, 00 Procardia extended XL) Give release on empty stomach. Take 1 hour before or 2 hours after meal; "Avoid grapefruit and grapefruit juice". Do not crush Epogen No Notes: Memoria (ESRD) 7-20 Same as: l 14:00: Retacrit) [place] epoetin shannon-epbx 14773 unit/1 ml VL. For dialysis use only. WASTE: F/P - Red; E Red MEDICATION WASTE Product Size: 76869 unit Product Wasted: ___ unit aspirin No Notes: Do Memor ia 7-20 not crush l 14:00: or chew. [place] (Same As: Ecotrin) Procardia No Notes: Memori a XL 30 mg 7-20 (Same as: l oral 14:00: Adalat CC, [place] tablet, 00 Procardia extended XL) Give release on empty stomach. Take 1 hour before or 2 hours after meal; "Avoid grapefruit and grapefruit juice". Do not crush Epogen No Notes: Memoria (ESRD) 7-20 Same as: l 14:00: Retacrit) [place] epoetin shannon-epbx 30861 unit/1 ml VL. For dialysis use only. WASTE: F/P - Red; E Red MEDICATION WASTE Product Size: 02161 unit Product Wasted: ___ unit aspirin No [...] (ESRD) 7-20 Same as: l 14:00: Retacrit) [place] epoetin shannon-epbx 51562 unit/1 ml VL. For dialysis use only. WASTE: F/P - Red; E Red MEDICATION WASTE Product Size: 72375 unit Product Wasted: ___ unit Lipitor No Notes: Memoria 7-20 (Same as: l 02:00: Lipitor) [place] Lipitor No Notes: Memoria 7-20 (Same as: l 02:00: Lipitor) [place] Lipitor No Notes: Memoria 7-20 (Same as: l 02:00: Lipitor) [place] 00 Lipitor No Notes: Memoria 7-20 (Same as: l 02:00: Lipitor) [place] 00 Lipitor No Notes: Memoria 7-20 (Same as: l 02:00: Lipitor) [place] Lipitor No Notes: Memoria 7-20 (Same as: l 02:00: Lipitor) [place] Lipitor No Notes: Memoria 7-20 (Same as: l 02:00: Lipitor) [place] Lipitor No Notes: Memoria 7-20 (Same as: l 02:00: Lipitor) [place] Lipitor No Notes: Memoria 7-20 (Same as: l 02:00: Lipitor) [place] Lipitor No Notes: Memoria 7-20 (Same as: l 02:00: Lipitor) [place] Lipitor No Notes: Memoria 7-20 (Same as: l 02:00: Lipitor) [place] Lipitor No Notes: Memoria 7-20 (Same as: l 02:00: Lipitor) [place] Lipitor No Notes: Memoria 7-20 (Same as: l 02:00: Lipitor) [place] 00 cefdinir No Notes: Memoria 300 mg [...] day, # 3 tab, 0 Refill(s), Pharmacy: [email or web address] #[id number], 177.8, cm, 12/14/21 22:03:00 CDT, Height, 95.2, kg, 12/14/21 22:03:00 CDT, Weight dexamethaso Yes 6 mg = 1 Me moria ne 6 mg 7-19 tab, PO, l oral tablet 21:19: Daily, X 3 [place] day, # 3 tab, 0 Refill(s), Pharmacy: [email or web address] #[id number], 177.8, cm, 12/14/21 22:03:00 CDT, Height, 95.2, kg, 12/14/21 22:03:00 CDT, Weight dexamethaso 2022-0 Yes 6 mg = 1 Me moria ne 6 mg 7-19 tab, PO, l oral tablet 21:19: Daily, X 3 [place] 00 day, # 3 tab, 0 Refill(s), Pharmacy: [facility] #[id number], 177.8, cm, 12/14/21 22:03:00 CDT, Height, 95.2, kg, 12/14/21 22:03:00 CDT, Weight dexamethaso 2022-0 Yes 6 mg = 1 Me moria ne 6 mg 7-19 tab, PO, l oral tablet 21:19: Daily, X 3 [place] 00 day, # 3 tab, 0 Refill(s), Pharmacy: [facility] cy #[id number], 177.8, cm, 12/14/21 22:03:00 CDT, Height, 95.2, kg, 12/14/21 22:03:00 CDT, Weight dexamethaso 2022-0 Yes 6 mg = 1 Me moria ne 6 mg 7-19 tab, PO, l oral tablet 21:19: Daily, X 3 [place] 00 day, # 3 tab, 0 Refill(s), Pharmacy: [facility] #[id number], 177.8, cm, 12/14/21 22:03:00 CDT, Height, 95.2, kg, 12/14/21 22:03:00 CDT, Weight dexamethaso 2022-0 Yes 6 mg = 1 Me moria ne 6 mg 7-19 tab, PO, l oral tablet 21:19: Daily, X 3 [place] 00 day, # 3 tab, 0 Refill(s), Pharmacy: [facility] #[id number], 177.8, cm, 12/14/21 22:03:00 CDT, Height, 95.2, kg, 12/14/21 22:03:00 CDT, Weight dexamethaso 2022-0 Yes 6 mg = 1 Me moria ne 6 mg 7-19 tab, PO, l oral tablet 21:19: Daily, X 3 [place] 00 day, # 3 tab, 0 Refill(s), Pharmacy: [facility] cy #[id number], 177.8, cm, 12/14/21 22:03:00 CDT, Height, 95.2, kg, 12/14/21 22:03:00 CDT, Weight dexamethaso 2022-0 Yes 6 mg = 1 Me moria ne 6 mg 7-19 tab, PO, l oral tablet 21:19: Daily, X 3 [place] 00 day, # 3 tab, 0 Refill(s), Pharmacy: [facility]/[employer] [facility] #[id number], 177.8, cm, 12/14/21 22:03:00 CDT, Height, 95.2, kg, 12/14/21 22:03:00 CDT, Weight dexamethaso 2022-0 Yes 6 mg = 1 Me moria ne 6 mg 7-19 tab, PO, l oral tablet 21:19: Daily, X 3 [place] 00 day, # 3 tab, 0 Refill(s), Pharmacy: [facility]/[employer] [facility] #[id number], 177.8, cm, 12/14/21 22:03:00 CDT, Height, 95.2, kg, 12/14/21 22:03:00 CDT, Weight dexamethaso 2022-0 Yes 6 mg = 1 Me moria ne 6 mg 7-19 tab, PO, l oral tablet 21:19: Daily, X 3 [place] 00 day, # 3 tab, 0 Refill(s), Pharmacy: [facility] #[id number], 177.8, cm, 12/14/21 22:03:00 CDT, Height, 95.2, kg, 12/14/21 22:03:00 CDT, Weight dexamethaso 2022-0 Yes 6 mg = 1 Me moria ne 6 mg 7-19 tab, PO, l oral tablet 21:19: Daily, X 3 [place] 00 day, # 3 tab, 0 Refill(s), Pharmacy: [facility] #[id number], 177.8, cm, 12/14/21 22:03:00 CDT, Height, 95.2, kg, 12/14/21 22:03:00 CDT, Weight dexamethaso 2022-0 Yes 6 mg = 1 Me moria ne 6 mg 7-19 tab, PO, l oral tablet 21:19: Daily, X 3 [place] 00 day, # 3 tab, 0 Refill(s), Pharmacy: [facility] #[id number], 177.8, cm, 12/14/21 22:03:00 CDT, Height, 95.2, kg, 12/14/21 22:03:00 CDT, Weight dexamethaso 2021-0 Yes 6 mg = 1 Me moria ne 6 mg 7-19 tab, PO, l oral tablet 21:19: Daily, X 3 [place] 00 day, # 3 tab, 0 Refill(s), Pharmacy: [facility]/[employer] #[id number], 177.8, cm, 12/14/21 22:03:00 CDT, Height, [...] 7-19 tab, PO, l tablet 20:29: Bedtime, [place] 00 PRN for insomnia, # 14 tab, 0 Refill(s) melatonin 3 2021-0 Yes 3 mg = 1 Me moria mg oral 7-19 tab, PO, l tablet 20:29: Bedtime, [place] 00 PRN for insomnia, # 14 tab, 0 Refill(s) melatonin Yes 3 mg = 1 Me moria mg oral 7-19 tab, PO, l tablet 20:29: Bedtime, [place] 00 PRN for insomnia, # 14 tab, 0 Refill(s) melatonin Yes 3 mg = 1 Me moria mg oral 7-19 tab, PO, l tablet 20:29: Bedtime, [place] 00 PRN for insomnia, # 14 tab, 0 Refill(s) melatonin Yes 3 mg = 1 Me moria mg oral 7-19 tab, PO, l tablet 20:29: Bedtime, [place] 00 PRN for insomnia, # 14 tab, 0 Refill(s) melatonin Yes 3 mg = 1 Me moria mg oral 7-19 tab, PO, l tablet 20:29: Bedtime, [place] 00 PRN for insomnia, # 14 tab, 0 Refill(s) melatonin Yes 3 mg = 1 Me moria mg oral 7-19 tab, PO, l tablet 20:29: Bedtime, [place] 00 PRN for insomnia, # 14 tab, 0 Refill(s) melatonin Yes 3 mg = 1 Me moria mg oral 7-19 tab, PO, l tablet 20:29: Bedtime, [place] 00 PRN for insomnia, # 14 tab, 0 Refill(s) melatonin Yes 3 mg = 1 Me moria mg oral 7-19 tab, PO, l tablet 20:29: Bedtime, [place] 00 PRN for insomnia, # 14 tab, [...] l oral tablet 20:27: Q12H, # 60 [place] 00 tab, 0 Refill(s) bisacodyl 5 Yes [...] mg = 2 M emoria mg oral - tab, PO, l enteric 20:27: Daily, PRN Herm silas coated 00 Constipati tablet on, # 20 tab, 0 Refill(s) bisacodyl 5 Yes 10 mg = 2 M emoria mg oral - tab, PO, l enteric 20:27: Daily, PRN [...] mg = 1 Me moria mg tablet, 7- tab, PO, l enteric 20:26: Daily, # [...] as: l 13:00: Renvela [place] 00 sevelamer No Notes: Memori a 7-19 Same as: l 13:00: Renvela [place] sevelamer No Notes: Memori a 7-19 Same as: l 13:00: Renvela [place] sevelamer No Notes: Memori a 7-19 Same as: l 13:00: Renvela [place] sevelamer No Notes: Memori a 7-19 Same as: l 13:00: Renvela [place] sevelamer No Notes: Memori a 7-19 Same as: l 13:00: Renvela [place] sevelamer No Notes: Memori a 7-19 Same as: l 13:00: Renvela [place] sevelamer No Notes: Memori a 7-19 Same as: l 13:00: Renvela [place] sevelamer No Notes: Memori a 7-19 Same as: l 13:00: Renvela [place] sevelamer No Notes: Memori a 7-19 Same as: l 13:00: Renvela [place] sevelamer No Notes: Memori a 7- Same as: l 13:00: Renvela [place] sevelamer No Notes: Memori a 7-19 Same as: l 13:00: Renvela [place] albumin Yes Notes: Lot Heath broussard human 25% 12-16 #: l intravenous 02:33: [place] solution ___ Mfg: (Same as: Plasbumin- 25) "blood product derivative " WASTE: F/P - Red; E -Red MEDICATION WASTE Product Size: 25 gm Product Wasted: ___ gm albumin Yes Notes: Lot Heath broussard human 25% 7-19 #: l intravenous 02:33: [place] solution ___ Mfg: (Same as: Plasbumin- 25) [...] mercado 25% 12-16 #: l intravenous 02:33: [place] solution 00 ___ Mfg: (Same as: Plasbumin- 25) "blood product derivative " WASTE: F/P - Red; E -Red MEDICATION WASTE Product Size: 25 gm Product Wasted: ___ gm albumin Yes Notes: Na [place] 25% 12-16 #: l intravenous 02:33: [place] solution 00 ___ Mfg: (Same as: Plasbumin- [...] mercado 25% 12-16 #: l intravenous 02:33: [place] solution ___ Mfg: (Same as: Plasbumin- 25) "blood product derivative " WASTE: F/P - Red; E -Red MEDICATION WASTE Product Size: 25 gm Product Wasted: ___ gm albumin Yes Notes: Na [place] 25% 12-16 #: l intravenous 02:33: [place] solution ___ Mfg: (Same as: Plasbumin- 25) "blood product derivative " WASTE: F/P - Red; E -Red MEDICATION WASTE Product Size: 25 gm Product Wasted: ___ gm albumin Yes Notes: Na [place] 25% 12-16 #: l intravenous 02:33: [place] solution ___ Mfg: (Same as: Plasbumin- 25) [...] mercado 25% 12-16 #: l intravenous 02:33: [place] solution ___ Mfg: (Same as: Plasbumin- 25) "blood product derivative " WASTE: F/P - Red; E -Red MEDICATION WASTE Product Size: 25 gm Product Wasted: ___ gm albumin Yes Notes: Lot Heath broussard human 25% 719 #: l intravenous 02:33: [place] solution 00 ___ Mfg: (Same as: Plasbumin- 25) "blood product derivative " WASTE: F/P - Red; E -Red MEDICATION WASTE Product Size: 25 gm Product Wasted: ___ gm albumin Yes Notes: Lot Heath broussard human 25% 719 #: l intravenous 02:33: [place] solution 00 [...] pratropium 7-18 Same as: l 13:00: Combivent [place] Respimat WASTE: Aerosol - Return to Pharmacy [...] pratropium 7-18 Same as: l 13:00: Combivent [place] 00 Respimat WASTE: Aerosol - Return to Pharmacy albuterol-i No Notes: Heath bobo pratropium 7-18 Same as: l 13:00: Combivent [place] 00 Respimat WASTE: Aerosol - Return to Pharmacy albuterol-i 0 No Notes: Heath bobo pratropium 7-18 Same as: l 13:00: Combivent [place] 00 Respimat WASTE: Aerosol - Return to [...] pratropium 7-18 Same as: l 13:00: Combivent [place] 00 Respimat WASTE: Aerosol - Return to Pharmacy albuterol-i No Notes: Heath bobo pratropium 7-18 Same as: l 13:00: Combivent [place] Respimat WASTE: Aerosol - Return to Pharmacy heparin No 5,000 Memoria 7-18 unit, l 05:00: Route: [place] 00 SUB-Q, Q8H, Dosing Weight 95.455, kg, [...] 5,000 Memoria 7-18 unit, l 05:00: Route: [place] 00 SUB-Q, Q8H, Dosing Weight 95.455, kg, [...] date: 01/13/22 16:00:00 CDT heparin 2-0 No Notes: Memoria 7-18 porcine [...] Notes: Memoria 7-18 porcine l 02:00: heparin [place] 00 heparin 2021-0 No Notes: Memoria 7-18 porcine l 02:00: heparin [place] 00 heparin 2021-0 No Notes: Memoria 7-18 porcine l 02:00: heparin [place] 00 heparin 2022-0 No Notes: Memoria 7-18 porcine l 02:00: heparin [place] heparin No Notes: Memoria 7-18 porcine l 02:00: heparin [place] heparin No Notes: Memoria 7-18 porcine l 02:00: heparin [place] heparin No Notes: Memoria 7-18 porcine l [...] (Same As: l Chloride 00:00: Zithromax Herm sials 0.9% IV 250 00 IV) mL cefepime [...] Rate: 999 l Water IV 23:57: ml/hr, [place] 00 Infuse over: 0.1 hr, Route: IV, Total Volume: 125, Start date: 12/14/21 18:57:00 CDT, Duration: 30 day, Stop date: 01/13/22 18:56:00 CDT, PRN Blood Glucose Results, 0 Dextrose No 125 mL, Memori a 10% in 12-14 Rate: 999 l Water IV 23:57: ml/hr, [place] 00 Infuse over: 0.1 hr, Route: IV, Total Volume: 125, Start date: 12/14/21 18:57:00 CDT, Duration: 30 day, Stop date: 01/13/22 18:56:00 CDT, PRN Blood Glucose Results, 0 Dextrose No 125 mL, Memori a 10% in 12-14 Rate: 999 l Water IV 23:57: ml/hr, [place] 00 Infuse over: 0.1 hr, Route: IV, [...] Rate: 999 l Water IV 23:57: ml/hr, [place] 00 Infuse over: 0.1 hr, Route: IV, Total Volume: 125, Start date: 12/14/21 18:57:00 CDT, Duration: 30 day, Stop date: 01/13/22 18:56:00 CDT, PRN Blood Glucose Results, 0 Dextrose 2021-0 No 125 mL, Memori a 10% in 12-14 Rate: 999 l Water IV 23:57: ml/hr, [place] 00 Infuse over: 0.1 hr, Route: IV, [...] Rate: 999 l Water IV 23:53: ml/hr, [place] 00 Infuse over: 0.3 hr, Route: IV, [...] Rate: 999 l Water IV 23:53: ml/hr, [place] 00 Infuse over: 0.3 hr, Route: IV, Total Volume: 250, Start date: 12/14/21 18:53:00 CDT, Duration: 30 day, Stop date: 01/13/22 18:52:00 CDT, PRN Blood Glucose Results, 0 Dextrose 2-0 No 250 mL, Memori a 10% in 12-14 Rate: 999 l Water IV 23:53: ml/hr, [place] 00 Infuse over: 0.3 hr, Route: IV, Total Volume: 250, Start date: 12/14/21 18:53:00 CDT, Duration: 30 day, Stop date: 01/13/22 18:52:00 CDT, PRN Blood Glucose Results, 0 Dextrose 2022-0 No 250 mL, Memori a 10% in 12-14 Rate: 999 l Water IV 23:53: ml/hr, [place] 00 Infuse over: 0.3 hr, Route: IV, [...] Rate: 999 l Water IV 23:53: ml/hr, [place] 00 Infuse over: 0.3 hr, Route: IV, Total Volume: 250, Start date: 12/14/21 18:53:00 CDT, Duration: 30 day, Stop date: 01/13/22 18:52:00 CDT, PRN Blood Glucose Results, 0 Dextrose 2022-0 No 250 mL, Memori a 10% in 12-14 Rate: 999 l Water IV 23:53: ml/hr, [place] 00 Infuse over: 0.3 hr, Route: IV, [...] Rate: 999 l Water IV 23:53: ml/hr, [place] 00 Infuse over: 0.3 hr, Route: IV, [...] Pharmacy 12-14 Vancomycin l Dosing 23:36: Pharmacy [place] Consult 47 Dosing Protocol PHARMAC Y USE ONLY Note: This is not a medication order. This is a consultati on order. Vancomycin No Notes: [facility] 12-14 Vancomycin l Dosing 23:36: Pharmacy [place] Consult 47 Dosing Protocol PHARMAC Y USE [...] Pharmacy 12-14 Vancomycin l Dosing 23:36: Pharmacy [place] Consult 47 Dosing Protocol PHARMAC Y USE ONLY Note: This is not a medication order. This is a consultati on order. Vancomycin No Notes: [facility] 12-14 Vancomycin l Dosing 23:36: Pharmacy [place] Consult 47 Dosing Protocol PHARMAC Y USE ONLY Note: This is not a medication order. This is a consultati on order. Vancomycin No Notes: [facility] 12-14 Vancomycin l Dosing 23:36: Pharmacy [place] Consult 47 Dosing Protocol PHARMAC Y USE ONLY Note: This is not a medication order. This is a consultati on order. Vancomycin No Notes: [facility] 12-14 Vancomycin l Dosing 23:36: Pharmacy [place] Consult 47 Dosing Protocol PHARMAC Y USE ONLY Note: This is not a medication order. This is a consultati on order. Vancomycin No Notes: [facility] 12-14 Vancomycin l Dosing 23:36: Pharmacy [place] Consult 47 Dosing Protocol PHARMAC Y USE [...] Product Wasted: ___ mg dextrometho No Notes: Heaht bobo tracihan-guaiF 12-14 (dextromet l ENesin 10 23:30: horphan-gu [...] 1.4% 7-17 Chlorasept l spray 23:30: ic [place] (Same as: Chlorasept ic, Sore Throat [place]) WASTE: F/P - Black; E - Municipal [...] 7-17 (Same as: l tablet 23:30: Pepcid) [place] 5/325 No Notes: Heath bobo oral tablet 7-17 (Same as: l 23:30: [place] 00 325/5) Do not exceed 4gm/day [...] 1.4% 7-17 Chlorasept l spray 23:30: ic [place] (Same as: Chlorasept ic, Sore Throat [place]) WASTE: F/P - Black; E - Municipal [...] 7-17 (Same as: l tablet 23:30: Pepcid) [place] 5/325 No Notes: Heath bobo oral tablet 7-17 (Same as: l 23:30: [place] 325/5) Do not exceed 4gm/day of acetaminop [...] 1.4% 7-17 Chlorasept l spray 23:30: ic [place] (Same as: Chlorasept ic, Sore Throat [place]) WASTE: F/P - Black; E - Municipal [...] 7-17 (Same as: l tablet 23:30: Pepcid) [place] 5/325 No Notes: Heath bobo oral tablet 7-17 (Same as: l 23:30: [place] 00 325/5) Do not exceed 4gm/day of [...] 1.4% 7-17 Chlorasept l spray 23:30: ic [place] (Same as: Chlorasept ic, Sore Throat [place]) WASTE: F/P - Black; E - Municipal [...] (Same as: l tablet 23:30: Pepcid) [place] 5/325 No Notes: Heath bobo oral tablet 7-17 (Same as: l 23:30: [place] 325/5) Do not exceed 4gm/day of acetaminop [...] 1.4% 7-17 Chlorasept l spray 23:30: ic [place] (Same as: Chlorasept ic, Sore Throat [place]) WASTE: F/P - Black; E - Municipal [...] 7-17 (Same as: l tablet 23:30: Pepcid) [place] 5/325 No Notes: Heath bobo oral tablet 7-17 (Same as: l 23:30: [place] 325/5) Do not exceed 4gm/day of acetaminop hen. morphine No 1 mg, 0.5 Heath bobo Sulfate 7-17 mL, Route: l 23:30: IVP, Drug form: SOLN, Q4H, Dosing Weight 95.455, kg, PRN Pain Score 7-10, Start date: 12/14/21 18:30:00 CDT, Duration: 30 day, Stop date: 01/13/22 18:29:00 CDT, 0 simethicone No Notes: Heath bobo 7-17 (Same as: l 23:30: Mylicon) ondansetron No Notes: Heath boob 7-17 (Same as: l 23:30: Zofran) MEDICATION [...] 1.4% 7-17 Chlorasept l spray 23:30: ic [place] (Same as: Chlorasept ic, Sore Throat [place]) WASTE: F/P - Black; E - Municipal [...] 7-17 (Same as: l tablet 23:30: Pepcid) [place] 5/325 No Notes: Heath bobo oral tablet 7-17 (Same as: l 23:30: [place] 00 325/5) Do not exceed 4gm/day of [...] 1.4% 7-17 Chlorasept l spray 23:30: ic [place] (Same as: Chlorasept ic, Sore Throat [place]) WASTE: F/P - Black; E - Municipal [...] 7-17 (Same as: l tablet 23:30: Pepcid) [place] 5/325 No Notes: Heath bobo oral tablet 7-17 (Same as: l 23:30: [place] 325/5) Do not exceed 4gm/day of acetaminop [...] 1.4% 7-17 Chlorasept l spray 23:30: ic [place] (Same as: Chlorasept ic, Sore Throat [place]) WASTE: F/P - Black; E - Municipal [...] 7-17 (Same as: l tablet 23:30: Pepcid) [place] 5/325 No Notes: Heath bobo oral tablet 7-17 (Same as: l 23:30: [place] 325/5) Do not exceed 4gm/day of acetaminop [...] 1.4% 7-17 Chlorasept l spray 23:30: ic [place] (Same as: Chlorasept ic, Sore Throat [place]) WASTE: F/P - Black; E - Municipal [...] 7-17 (Same as: l tablet 23:30: Pepcid) [place] 5/325 No Notes: Heath bobo oral tablet 7-17 (Same as: l 23:30: [place] 325/5) Do not exceed 4gm/day of acetaminop [...] ___ mg dextrometho No Notes: Heath bobo tracihan-guaiF 7-17 (dextromet l ENesin 10 23:30: horphan-gu He rmann mg-100 mg/5 00 aifenesin mL oral 10-100mg/5 liquid ml 10 ml oral SOLN ud) (Same as: Robitussin DM) simethicone No Notes: Heath bobo 7-17 (Same [...] 1.4% 7-17 Chlorasept l spray 23:30: ic [place] (Same as: Chlorasept ic, Sore Throat [place]) WASTE: F/P - Black; E - Municipal [...] 7-17 (Same as: l tablet 23:30: Pepcid) [place] 5/325 No Notes: Heath bobo oral tablet 7-17 (Same as: l 23:30: [place] 00 325/5) Do not exceed 4gm/day of acetaminop hen. morphine No 1 mg, 0.5 Heath bobo Sulfate 7-17 mL, Route: l 23:30: IVP, Drug form: SOLN, Q4H, Dosing Weight 95.455, kg, PRN Pain Score 7-10, Start date: 12/14/21 18:30:00 CDT, Duration: 30 day, Stop date: 01/13/22 18:29:00 CDT, 0 diphenhydrA No 25 mg, 1 Me moria [...] (Same as: l 2.5-0.5 mg 23:30: Duoneb) silsa inhalation solution Chlorasepti No Notes: Heath bobo c 1.4% 7-17 Chlorasept l spray 23:30: ic [place] (Same as: Chlorasept ic, Sore Throat [place]) WASTE: F/P - Black; E - Municipal [...] l tablet 23:30: Pepcid) albuterol-i No Notes: Ehath bobo pratropium 7-17 (Same as: l 2.5-0.5 mg 23:30: Duoneb) solution Chlorasepti No Notes: Heath bobo c 1.4% 7-17 Chlorasept l spray 23:30: ic [place] (Same as: Chlorasept ic, Sore Throat [place]) WASTE: F/P - Black; E - Municipal [...] (Same as: l tablet 23:30: Pepcid) [place] 5/325 No Notes: Heath bobo oral tablet 7-17 (Same as: l 23:30: [place] 325/5) Do not exceed 4gm/day of acetaminop hen. morphine No 1 mg, 0.5 Heath bobo Sulfate 7-17 mL, Route: l 23:30: IVP, Drug form: SOLN, Q4H, Dosing Weight 95.455, kg, PRN Pain Score 7-10, Start date: 12/14/21 18:30:00 CDT, Duration: 30 day, Stop date: 01/13/22 18:29:00 CDT, 0 [place] 5/325 No Notes: Heath bobo oral tablet 7-17 (Same as: l 23:30: [place] 325/5) Do not exceed 4gm/day of [...] MINE 7-17 tab, l 23:30: Route: PO, [place] 00 Drug form: TAB, Q6H, Dosing Weight [...] 1.4% 7-17 Chlorasept l spray 23:30: ic [place] (Same as: Chlorasept ic, Sore Throat [place]) WASTE: F/P - Black; E - Municipal [...] 7-17 (Same as: l tablet 23:30: Pepcid) [place] 5/325 No Notes: Heath bobo oral tablet 7-17 (Same as: l 23:30: [place] 00 325/5) Do not exceed 4gm/day [...] 7-17 Route: IM, l 23:29: Drug form: [place] 00 PDR/INJ, PRN, Dosing Weight 95.455, kg, PRN Blood Glucose Results, Start date: 12/14/21 18:29:00 CDT, Duration: 30 day, Stop date: 01/13/22 18:28:00 CDT, 0 insulin 2022-0 No Notes: Memoria lispro -17 (Same as: [...] Syringe 7-17 Route: l (D50W) 23:29: IVP, [place] 00 Dosing Weight 95.455, kg, PRN, PRN Blood Glucose Results, Start date: 12/14/21 18:29:00 CDT, Duration: 30 day, Stop date: 01/13/22 18:28:00 CDT glucagon 2022-0 No 1 mg, Memoria 7-17 Route: IM, l 23:29: Drug form: [place] 00 PDR/INJ, PRN, Dosing Weight 95.455, kg, PRN Blood Glucose Results, Start date: 12/14/21 18:29:00 CDT, Duration: 30 day, Stop date: 01/13/22 18:28:00 CDT, 0 insulin 2022-0 No Notes: [facility] lispro 7-17 (Same as: l 23:29: Humalog) [place] 00 Roll in palms of hands gently; [...] 7-17 Route: IM, l 23:29: Drug form: [place] 00 PDR/INJ, PRN, Dosing Weight 95.455, kg, [...] Syringe 7-17 Route: l (D50W) 23:29: IVP, [place] 00 Dosing Weight 95.455, kg, PRN, PRN [...] lispro 7-17 (Same as: l 23:29: Humalog) [place] 00 Roll in palms of hands gently; Do not shake vigorously . WASTE: F/P - Black; E - Municipal Trash Bin Stable for 28 days at room temperatur e. Expires in days from ____Date Dextrose 2022-0 No 25 mL, [facility] 50% Syringe 7-17 Route: l (D50W) 23:29: IVP, [place] 00 Dosing Weight 95.455, kg, PRN, PRN Blood Glucose Results, Start date: 12/14/21 18:29:00 CDT, Duration: 30 day, Stop date: 01/13/22 18:28:00 CDT glucagon 2021-0 No 1 mg, Memoria 7 Route: IM, l 23:29: Drug form: [place] 00 PDR/INJ, PRN, Dosing Weight 95.455, kg, [...] 7-17 Route: IM, l 23:29: Drug form: [place] 00 PDR/INJ, PRN, Dosing Weight 95.455, kg, [...] Syringe 7-17 Route: l (D50W) 23:29: IVP, [place] 00 Dosing Weight 95.455, kg, PRN, PRN Blood Glucose Results, Start date: 12/14/21 18:29:00 CDT, Duration: 30 day, Stop date: 01/13/22 18:28:00 CDT glucagon 2022-0 No 1 mg, Memoria 7-17 Route: IM, l 23:29: Drug form: [place] 00 PDR/INJ, PRN, Dosing Weight 95.455, kg, PRN Blood Glucose Results, Start date: 12/14/21 18:29:00 CDT, Duration: 30 day, Stop date: 01/13/22 18:28:00 CDT, 0 insulin 2022-0 No Notes: [facility] lispro 7-17 (Same as: l 23:29: Humalog) [place] 00 Roll in palms of hands gently; [...] 7-17 Route: IM, l 23:29: Drug form: [place] 00 PDR/INJ, PRN, Dosing Weight 95.455, kg, [...] 7-17 Route: IM, l 23:29: Drug form: [place] 00 PDR/INJ, PRN, Dosing Weight 95.455, kg, PRN Blood Glucose Results, Start date: 12/14/21 18:29:00 CDT, Duration: 30 day, Stop date: 01/13/22 18:28:00 CDT, 0 insulin 2022-0 No Notes: [facility] lispro 7-17 (Same as: l 23:29: Humalog) [place] 00 Roll in palms of hands gently; Do not shake vigorously . WASTE: F/P - Black; E - Municipal Trash Bin Stable for 28 days at room temperatur e. Expires in days from ____Date Dextrose 2022-0 No 25 mL, [facility] 50% Syringe 7-17 Route: l (D50W) 23:29: IVP, [place] 00 Dosing Weight 95.455, kg, PRN, PRN Blood Glucose Results, Start date: 12/14/21 18:29:00 CDT, Duration: 30 day, Stop date: 01/13/22 18:28:00 CDT glucagon 2022-0 No 1 mg, [facility]oria 7-17 Route: IM, l 23:29: Drug form: [place] 00 PDR/INJ, PRN, Dosing Weight 95.455, kg, [...] Perles 7-17 (Same As: l 23:28: Tessalon [place] 00 Perles) "Do Not Crush" zinc No [...] [facility]oria sulfate 7-17 (Zinc l 23:28: sulfate [place] capsule) - 220 mg Zinc sulfate = 50 mg elemental zinc Same as Zinc Sulfate ascorbic No Notes: [facility] acid 7-17 (Same as: l 23:28: Vitamin C) No Notes: [facility] Perles 7-17 (Same As: l 23:28: Tessalon [place] Perles) "Do Not Crush" zinc No Notes: [...] [facility]oria sulfate 7-17 (Zinc l 23:28: sulfate [place] capsule) - 220 mg Zinc sulfate = 50 mg elemental zinc Same as Zinc Sulfate ascorbic No Notes: [facility] acid 7-17 (Same as: l 23:28: Vitamin C) No Notes: [facility] Perles 7-17 (Same As: l 23:28: Tessalon [place] 00 Perles) "Do Not Crush" zinc No Notes: [facility] sulfate 7-17 (Zinc l 23:28: sulfate [place] capsule) - 220 mg Zinc sulfate = 50 mg elemental zinc Same as Zinc Sulfate ascorbic No Notes: [facility] acid 7-17 (Same as: l 23:28: Vitamin C) No Notes: [facility] Perles 7-17 (Same As: l 23:28: Tessalon [place] 00 Perles) "Do Not Crush" zinc No Notes: [facility]oria sulfate 7-17 (Zinc l 23:28: sulfate [place] capsule) - 220 mg Zinc sulfate = 50 mg elemental zinc Same as Zinc Sulfate ascorbic No Notes: [facility] acid 7-17 (Same as: l 23:28: Vitamin C) No Notes: [facility] Perles 7-17 (Same As: l 23:28: Tessalon [place] 00 Perles) "Do Not Crush" zinc No Notes: [facility] sulfate 7-17 (Zinc l 23:28: sulfate [place] capsule) - 220 mg Zinc sulfate = [...] Perles 7-17 (Same As: l 23:28: Tessalon [place] 00 Perles) "Do Not Crush" zinc No Notes: [facility] sulfate 7-17 (Zinc l 23:28: sulfate [place] capsule) - 220 mg Zinc sulfate = 50 mg elemental zinc Same as Zinc Sulfate ascorbic No Notes: [facility] acid 7-17 (Same as: l 23:28: Vitamin C) No Notes: [facility] Perles 7-17 (Same As: l 23:28: Tessalon [place] 00 Perles) "Do Not Crush" zinc No Notes: [facility] sulfate 7-17 (Zinc l 23:28: sulfate [place] capsule) - 220 mg Zinc sulfate = 50 mg elemental zinc Same as Zinc Sulfate ascorbic No Notes: [facility] acid 7-17 (Same as: l 23:28: Vitamin C) No Notes: [facility] Perles 7-17 (Same As: l 23:28: Tessalon [place] Perles) "Do Not Crush" zinc No Notes: [facility] sulfate 7-17 (Zinc l 23:28: sulfate [place] capsule) - 220 mg Zinc sulfate = [...] [facility] 7-17 Take with l 22:40: food. [place] 00 Rocephin + No Notes: [facility] [...] Rate: 999 l Water IV 21:08: ml/hr, [place] Infuse over: 0.3 hr, Route: IV, Total [...] Rate: 999 l Water IV 21:08: ml/hr, [place] 00 Infuse over: 0.3 hr, Route: IV, Total Volume: 250, Start date: 12/14/21 16:08:00 CDT, Stop date: 12/14/21 16:08:00 CDT, 0 Dextrose 2022-0 No 250 mL, [facility] a 10% in 12-14 Rate: 999 l Water IV 21:08: ml/hr, [place] Infuse over: 0.3 hr, Route: IV, Total [...] Rate: 999 l Water IV 21:08: ml/hr, [place] Infuse over: 0.3 hr, Route: IV, Total Volume: 250, Start date: 12/14/21 16:08:00 CDT, Stop date: 12/14/21 16:08:00 CDT, 0 Dextrose 2022-0 No 250 mL, Memori a 10% in 12-14 Rate: 999 l Water IV 21:08: ml/hr, [place] 00 Infuse over: 0.3 hr, Route: IV, [...] Rate: 999 l Water IV 21:08: ml/hr, [place] 00 Infuse over: 0.3 hr, Route: IV, [...] Heath bobo 7-17 Route: l 20:41: IVP, [place] Dosing Weight 95.455, kg, ONCE, STAT, Start date: 12/14/21 15:41:00 CDT, Stop date: 12/14/21 15:41:00 CDT, 25 ml = 12.5 gm d50 syringe 2021-0 No 25 mL, Heath bobo 7- Route: l 20:41: IVP, [place] Dosing Weight 95.455, kg, ONCE, STAT, Start date: 12/14/21 15:41:00 CDT, Stop date: 12/14/21 15:41:00 CDT, 25 ml = 12.5 gm d50 syringe 2-0 No 25 mL, Heath bobo 7-17 Route: l 20:41: IVP, [place] Dosing Weight 95.455, kg, ONCE, STAT, Start [...] Heath bobo 7-17 Route: l 20:41: IVP, [place] Dosing Weight 95.455, kg, ONCE, STAT, Start [...] Heath bobo 7-17 Route: l 20:41: IVP, [place] 00 Dosing Weight 95.455, kg, ONCE, STAT, [...] Heath bobo 7-17 Route: l 20:41: IVP, [place] 00 Dosing Weight 95.455, kg, ONCE, STAT, [...] Rate: To l 0.9% 01:29: prime line [place] (titrate) 00 and flush 250 mL remaining [...] Rate: To l 0.9% 01:29: prime line [place] (titrate) 00 and flush 250 mL remaining [...] Rate: To l 0.9% 01:29: prime line [place] (titrate) 00 and flush 250 mL remaining [...] Rate: To l 0.9% 01:29: prime line [place] (titrate) 00 and flush 250 mL remaining blood products., Dosing Weight 88.636, kg, Route: IV, Total Volume: 250, Start Date: 12/03/21 20:29:00 CDT, Duration: 1 day, Stop date: 12/04/21 20:28:00 CDT, Replace Every: 24 hr, 0 Sodium 2022-0 No 250 mL, [facility] Ch[facility] 7-07 Rate: To l 0.9% 01:29: prime line [place] (titrate) 00 and flush 250 mL remaining blood products., Dosing Weight 88.636, kg, Route: IV, Total Volume: 250, Start Date: 12/03/21 20:29:00 CDT, Duration: 1 day, Stop date: 12/04/21 20:28:00 CDT, Replace Every: 24 hr, 0 Sodium 2022-0 No 250 mL, [facility] Chloride 7-07 Rate: To l 0.9% 01:29: prime line [place] (titrate) 00 and flush 250 mL remaining [...] Rate: To l 0.9% 01:29: prime line [place] (titrate) 00 and flush 250 mL remaining blood products., Dosing Weight 88.636, kg, Route: IV, Total Volume: 250, Start Date: 12/03/21 20:29:00 CDT, Duration: 1 day, Stop date: 12/04/21 20:28:00 CDT, Replace Every: 24 hr, 0 Sodium 2022-0 No 250 mL, [facility]oria Chloride 7-07 Rate: To l 0.9% 01:29: prime line [place] (titrate) 00 and flush 250 mL remaining blood products., Dosing Weight 88.636, kg, Route: IV, Total Volume: 250, Start Date: 12/03/21 20:29:00 CDT, Duration: 1 day, Stop date: 12/04/21 20:28:00 CDT, Replace Every: 24 hr, 0 Plavix 75 2022-0 Yes 75 mg = 1 Mem oria mg oral 6-28 tab, PO, l tablet 19:37: Daily, # [place] 00 30 tab, 0 Refill(s), other Plavix [...] tab, PO, l tablet 19:37: Daily, # [place] 00 30 tab, 0 Refill(s), other Plavix [...] tab, PO, l tablet 19:37: Daily, # [place] 00 30 tab, 0 Refill(s), other Plavix 75 0 Yes 75 mg = 1 Mem [facility] mg oral 6-28 tab, PO, l tablet 19:37: Daily, # [place] 00 30 tab, 0 Refill(s), other Plavix 75 2021-0 Yes 75 mg = 1 [facility] mg oral 6-28 tab, PO, l tablet 19:37: Daily, # [place] 00 30 tab, 0 Refill(s), other Plavix [...] oria 6-28 IV push l 14:00: reconstitu [place] 00 te with 10 ml 0.9% sodium chloride and push over 2 minutes. (Same as: Protonix) atorvastati No Notes: Heath bobo n 6-28 (Same as: l 14:00: Lipitor) citalopram No Notes: Memor ia 6-28 (Same As: l 14:00: CeleXA) Protonix No Notes: For Mem oria 6-28 IV push l 14:00: reconstitu [place] 00 te with 10 ml 0.9% sodium chloride and push over 2 minutes. (Same as: Protonix) atorvastati No Notes: Heath bobo n 6-28 (Same as: l 14:00: Lipitor) [place] 00 citalopram No Notes: Memor ia 6-28 (Same As: l 14:00: CeleXA) [place] 00 Protonix No Notes: For Mem oria [...] oria 6-28 IV push l 14:00: reconstitu [place] 00 te with 10 ml 0.9% sodium chloride and push over 2 minutes. (Same as: Protonix) atorvastati No Notes: Heath bobo n 6-28 (Same as: l 14:00: Lipitor) [place] citalopram No Notes: Memor ia 6-28 (Same As: l 14:00: CeleXA) [place] 00 Protonix No Notes: For Mem oria 6-28 IV push l 14:00: reconstitu [place] 00 te with 10 ml 0.9% sodium chloride and push over 2 minutes. (Same as: Protonix) atorvastati No Notes: Heath bobo n 6-28 (Same as: l 14:00: Lipitor) [place] 00 citalopram No Notes: Memor ia 6-28 (Same As: l 14:00: CeleXA) [place] 00 Protonix No Notes: For Mem oria 6-28 IV push l 14:00: reconstitu [place] 00 te with 10 ml 0.9% sodium chloride and push over 2 minutes. (Same as: Protonix) atorvastati No Notes: Heath bobo n 6-28 (Same as: l 14:00: Lipitor) [place] 00 citalopram No Notes: Memor ia 6-28 (Same As: l 14:00: CeleXA) [place] Protonix No Notes: For Mem oria 6-28 IV push l 14:00: reconstitu [place] 00 te with 10 ml 0.9% sodium chloride and push over 2 minutes. (Same as: Protonix) atorvastati No Notes: Heath bobo n 6-28 (Same as: l 14:00: Lipitor) [place] citalopram No Notes: Memor ia 6-28 (Same As: l 14:00: CeleXA) [place] Protonix No Notes: For Mem oria 6-28 IV push l 14:00: reconstitu [place] 00 te with 10 ml 0.9% sodium [...] ia 6-28 (Same As: l 14:00: CeleXA) [place] Protonix No Notes: For Mem oria 6-28 IV push l 14:00: reconstitu [place] 00 te with 10 ml 0.9% sodium chloride and push over 2 minutes. (Same as: Protonix) atorvastati No Notes: Heath bobo n 6-28 (Same as: l 14:00: Lipitor) [place] 00 citalopram No Notes: Memor ia 6-28 (Same As: l 14:00: CeleXA) [place] 00 Protonix No Notes: For Mem oria 6-28 IV push l 14:00: reconstitu [place] 00 te with 10 ml 0.9% sodium chloride and push over 2 minutes. (Same as: Protonix) atorvastati No Notes: Heath bobo n 6-28 (Same as: l 14:00: Lipitor) [place] 00 citalopram No Notes: Memor ia 6-28 (Same As: l 14:00: CeleXA) Protonix No Notes: For Mem oria 6-28 IV push l 14:00: reconstitu [place] 00 te with 10 ml 0.9% sodium chloride and push over 2 minutes. (Same as: Protonix) atorvastati No Notes: Heath bobo n 6-28 (Same as: l 14:00: Lipitor) citalopram No Notes: Memor ia 6-28 (Same As: l 14:00: CeleXA) dexamethaso No Notes: Heath bobo ne 6-28 Concentrat l 06:42: ion: [place] 00 4mg/ml dexamethaso 2021-0 No Notes: Heath bobo ne 6-28 Concentrat l 06:42: ion: [place] 00 4mg/ml dexamethaso 2021-0 No Notes: Heath [...] bobo ne 6-28 Concentrat l 06:42: ion: [place] 00 4mg/ml dexamethaso 2021-0 No Notes: Heath bobo ne 6-28 Concentrat l 06:42: ion: [place] 00 4mg/ml dexamethaso 2021-0 No Notes: Heath bobo ne 6-28 Concentrat l 06:42: ion: [place] 00 4mg/ml dexamethaso 2021-0 No Notes: Heath bobo ne - Concentrat l 06:42: ion: [place] 00 4mg/ml dexamethaso 2021-0 No Notes: Heath bobo ne - Concentrat l 06:42: ion: [place] 00 4mg/ml dexamethaso 2021-0 No Notes: Heath bobo ne - Concentrat l 06:42: ion: [place] 00 4mg/ml D10W 2021-0 No 125 mL, [facility] (bolus) IV 6-28 Rate: 999 l 06:31: ml/hr, [place] 00 Infuse over: 0.1 hr, Route: IVPB, Total Volume: 125, Start date: 11/25/21 1:31:00 CDT, Duration: 30 day, Stop date: 12/25/21 1:30:00 CDT, PRN Blood Glucose Results, 0 0 No 125 mL, [facility] (bolus) IV - Rate: 999 l 06:31: ml/hr, [place] 00 Infuse over: 0.1 hr, Route: IVPB, Total Volume: 125, Start date: 11/25/21 1:31:00 CDT, Duration: 30 day, Stop date: 12/25/21 1:30:00 CDT, PRN Blood Glucose Results, 0 D10 No 125 mL, [facility] (bolus) IV 6-28 Rate: 999 l 06:31: ml/hr, [place] 00 Infuse over: 0.1 hr, Route: IVPB, [...] IV - Rate: 999 l 06:31: ml/hr, [place] 00 Infuse over: 0.1 hr, Route: IVPB, Total Volume: 125, Start date: 11/25/21 1:31:00 CDT, Duration: 30 day, Stop date: 12/25/21 1:30:00 CDT, PRN Blood Glucose Results, 0 D10W 2021-0 No 125 mL, [facility] (bolus) IV 11-25 Rate: 999 l 06:31: ml/hr, [place] 00 Infuse over: 0.1 hr, Route: IVPB, Total Volume: 125, Start date: 11/25/21 1:31:00 CDT, Duration: 30 day, Stop date: 12/25/21 1:30:00 CDT, PRN Blood Glucose Results, 0 D10W 2021-0 No 125 mL, [facility] (bolus) IV - Rate: 999 l 06:31: ml/hr, [place] 00 Infuse over: 0.1 hr, Route: IVPB, [...] IV 6- Rate: 999 l 06:31: ml/hr, [place] 00 Infuse over: 0.1 hr, Route: IVPB, Total Volume: 125, Start date: 11/25/21 1:31:00 CDT, Duration: 30 day, Stop date: 12/25/21 1:30:00 CDT, PRN Blood Glucose Results, 0 D10W 2021-0 No 125 mL, [facility] (bolus) IV 6-28 Rate: 999 l 06:31: ml/hr, [place] 00 Infuse over: 0.1 hr, Route: IVPB, [...] IV 6- Rate: 999 l 06:31: ml/hr, [place] 00 Infuse over: 0.1 hr, Route: IVPB, [...] IV 6- Rate: 999 l 06:23: ml/hr, [place] 00 Infuse over: 0.3 hr, Route: IVPB, Total Volume: 250, Start date: 11/25/21 1:23:00 CDT, Duration: 30 day, Stop date: 12/25/21 1:22:00 CDT, PRN Blood Glucose Results, 0 D12021-0 No 250 mL, [facility] (bolus) IV 6- Rate: 999 l 06:23: ml/hr, [place] 00 Infuse over: 0.3 hr, Route: IVPB, Total Volume: 250, Start date: 11/25/21 1:23:00 CDT, Duration: 30 day, Stop date: 12/25/21 1:22:00 CDT, PRN Blood Glucose Results, 0 D12021-0 No 250 mL, [facility] (bolus) IV - Rate: 999 l 06:23: ml/hr, [place] 00 Infuse over: 0.3 hr, Route: IVPB, Total Volume: 250, Start date: 11/25/21 1:23:00 CDT, Duration: 30 day, Stop date: 12/25/21 1:22:00 CDT, PRN Blood Glucose Results, 0 D12021-0 No 250 mL, [facility] (bolus) IV - Rate: 999 l 06:23: ml/hr, [place] 00 [...] IV 6-28 Rate: 999 l 06:23: ml/hr, [place] 00 Infuse over: 0.3 hr, Route: IVPB, [...] 11-25 Route: IM, l 05:55: Drug form: [place] 00 PDR/INJ, PRN, Dosing Weight 94.545, kg, [...] Syringe 11-25 Route: l (D50W) 05:55: IVP, [place] Dosing Weight 94.545, kg, PRN, PRN Blood Glucose Results, Start date: 11/25/21 0:55:00 CDT, Duration: 30 day, Stop date: 12/25/21 0:54:00 CDT glucagon 2021-0 No 1 mg, [facility] 11-25 Route: IM, l 05:55: Drug form: [place] 00 PDR/INJ, PRN, Dosing Weight 94.545, kg, [...] lispro 11-25 (Same as: l 05:55: Humalog) [place] 00 Roll in palms of hands gently; Do not shake vigorously . WASTE: F/P - Black; E - Municipal Trash Bin Stable for 28 days at room temperatur e. Expires in days from ____Date Dextrose 2021-0 No 25 mL, [facility] 50% Syringe 11-25 Route: l (D50W) 05:55: IVP, [place] 00 Dosing Weight 94.545, kg, PRN, PRN [...] lispro 11-25 (Same as: l 05:55: Humalog) [place] 00 Roll in palms of hands gently; [...] 11-25 Route: IM, l 05:55: Drug form: [place] 00 PDR/INJ, PRN, Dosing Weight 94.545, kg, [...] lispro 6-28 (Same as: l 05:55: Humalog) [place] 00 Roll in palms of hands gently; [...] Syringe 11-25 Route: l (D50W) 05:55: IVP, [place] 00 Dosing Weight 94.545, kg, PRN, PRN Blood Glucose Results, Start date: 11/25/21 0:55:00 CDT, Duration: 30 day, Stop date: 12/25/21 0:54:00 CDT glucagon 2021-0 No 1 mg, [facility] 11-25 Route: IM, l 05:55: Drug form: [place] 00 PDR/INJ, PRN, Dosing Weight 94.545, kg, PRN Blood Glucose Results, Start date: 11/25/21 0:55:00 CDT, Duration: 30 day, Stop date: 12/25/21 0:54:00 CDT, 0 insulin 202-0 No Notes: [facility] lispro 6-28 (Same as: l 05:55: Humalog) [place] 00 Roll in palms of hands gently; Do not shake vigorously . WASTE: F/P - Black; E - Municipal Trash Bin Stable for 28 days at room temperatur e. Expires in days from ____Date Dextrose 2021-0 No 25 mL, [facility] 50% Syringe 11-25 Route: l (D50W) 05:55: IVP, [place] 00 Dosing Weight 94.545, kg, PRN, PRN [...] lispro -28 (Same as: l 05:55: Humalog) [place] 00 Roll in palms of hands gently; [...] lispro 6-28 (Same as: l 05:55: Humalog) [place] 00 Roll in palms of hands gently; [...] 11-25 Route: IM, l 05:55: Drug form: [place] 00 PDR/INJ, PRN, Dosing Weight 94.545, kg, PRN Blood Glucose Results, Start date: 11/25/21 0:55:00 CDT, Duration: 30 day, Stop date: 12/25/21 0:54:00 CDT, 0 insulin 2021-0 No Notes: [facility] lispro -28 (Same as: l 05:55: Humalog) [place] 00 Roll in palms of hands gently; [...] 6-28 not exceed l 05:54: 4 gm/day. [place] 00 (Same as: Tylenol) sal2021 No Notes: [...] 6-28 not exceed l 05:54: 4 gm/day. [place] 00 (Same as: Tylenol) salon No Notes: [...] 6-28 (Same as: l tablet 05:54: Senokot) [place] 00 Colace 50 No Notes: Memori a mg oral 6-28 (Same as: l capsule 05:54: Colace) [place] 00 Zofran No Notes: [facility] 6-28 (Same as: l 05:54: Zofran) [place] 00 MEDICATION WASTE Product Size: 4 mg [...] 6-28 (Same as: l tablet 05:54: Senokot) [place] 00 Colace 50 No Notes: Memori a mg oral 6-28 (Same as: l capsule 05:54: Colace) [place] 00 Zofran No Notes: [facility] 6-28 (Same as: l 05:54: Zofran) [place] 00 MEDICATION WASTE Product Size: 4 mg [...] 6-28 (Same as: l tablet 05:54: Senokot) [place] 00 Colace 50 No Notes: Memori a mg oral 6-28 (Same as: l capsule 05:54: Colace) [place] 00 Zofran No Notes: [facility] 6-28 (Same as: l 05:54: Zofran) [place] 00 MEDICATION WASTE Product Size: 4 mg Product Wasted: ___ mg Tylenol No Notes: Do Memor ia 6-28 not exceed l 05:54: 4 gm/day. [place] 00 (Same as: Tylenol) [place] No Notes: Memoria Perles 6-28 (Same As: l 05:54: Tessalon [place] 00 Perles) "Do Not Crush" simethicone No Notes: Heath bobo 6-28 (Same as: l 05:54: Mylicon) senna 8.6 No Notes: Memori a mg oral 6-28 (Same as: l tablet 05:54: Senokot) [place] 00 Colace 50 No Notes: Memori a mg oral 6-28 (Same as: l capsule 05:54: Colace) [place] 00 Zofran No Notes: [facility] 6-28 (Same as: l 05:54: Zofran) [place] 00 MEDICATION WASTE Product Size: 4 mg Product Wasted: ___ mg Tylenol No Notes: Do Memor ia 6-28 not exceed l 05:54: 4 gm/day. [place] 00 (Same as: Tylenol) Tessalon No Notes: Memoria Perles 6-28 (Same As: l 05:54: Tessalon [place] 00 Perles) "Do Not Crush" simethicone No [...] 6-28 not exceed l 05:54: 4 gm/day. [place] 00 (Same as: Tylenol) sal2021 No Notes: [...] Perles 6-28 (Same As: l 05:54: Tessalon [place] 00 Perles) "Do Not Crush" simethicone No [...] oria 6-28 IV push l 03:37: reconstitu [place] 00 te with 10 ml 0.9% sodium chloride and push over 2 minutes. (Same as: Protonix) Protonix 0 No Notes: For Mem oria 6-28 IV push l 03:37: reconstitu [place] 00 te with 10 ml 0.9% sodium chloride and push over 2 minutes. (Same as: Protonix) Protonix 2021-0 No Notes: For Mem oria 6-28 IV push l 03:37: reconstitu [place] 00 te with 10 ml 0.9% sodium chloride and push over 2 minutes. (Same as: Protonix) Protonix 0 No Notes: For Mem oria 6-28 IV push l 03:37: reconstitu [place] 00 te with 10 ml 0.9% sodium chloride and push over 2 minutes. (Same as: Protonix) Protonix 2021-0 No Notes: For Mem oria 6-28 IV push l 03:37: reconstitu [place] 00 te with 10 ml 0.9% sodium chloride and push over 2 minutes. (Same as: Protonix) Protonix No Notes: For Mem oria 6-28 IV push l 03:37: reconstitu [place] 00 te with 10 ml 0.9% sodium chloride and push over 2 minutes. (Same as: Protonix) Protonix No Notes: For Mem oria 6-28 IV push l 03:37: reconstitu [place] 00 te with 10 ml 0.9% sodium [...] oria 6-28 IV push l 03:37: reconstitu [place] 00 te with 10 ml 0.9% sodium [...] 1-15 [facility] 00:00: - [facility] 00 [facility] BD BD 2018-05 Yes [place] 1 needle Common Ultra-Fine Ultra-Fine 0-09 [facility] with Sp jerome Christina Pen Christina Pen 00:00: Basaglar - [facility] Jay Jay 00 [facility] BD BD 2018-05 No QD BD Ultra-Fine Ultra-Fine 0-09 Ultra-Fine Christina Pen Christina Pen 00:00: Christina Pen Jay 4mm Jay 4mm 00 Jay x 32Gm x 32Gm 4mm x 32Gm [facility] 2018- No QD BD Ultra-Fine Ultra-Fine 0-09 Ultra-Fine Christina Pen Christina Pen 00:00: Christina Pen Jay 4mm Jay 4mm 00 Jay x 32Gm x 32Gm 4mm x 32Gm [facility] 2018- No QD BD Ultra-Fine Ultra-Fine 0-09 Ultra-Fine Christina Pen Christina Pen 00:00: Christina Pen Jay 4mm Jay 4mm 00 Jay x 32Gm x 32Gm 4mm x 32Gm [facility] 2018- No QD BD Ultra-Fine Ultra-Fine 0-09 Ultra-Fine Christina Pen Christina Pen 00:00: Christina Pen Jay 4mm Jay 4mm 00 Jay x 32Gm x 32Gm 4mm x 32Gm [facility] 2018- No QD BD Ultra-Fine Ultra-Fine 0-09 Ultra-Fine Christina Pen Christina Pen 00:00: Christina Pen Jay 4mm Jay 4mm 00 Jay x 32Gm x 32Gm 4mm x 32Gm [facility] 2018- No QD BD Ultra-Fine Ultra-Fine 0-09 Ultra-Fine Christina Pen Christina Pen 00:00: Christina Pen Jay 4mm Jay 4mm 00 Jay x 32Gm x 32Gm 4mm x 32Gm [facility] 2018-05 No QD BD Ultra-Fine Ultra-Fine 0-09 Ultra-Fine Christina Pen Christina Pen 00:00: Christina Pen Jay 4mm Jay 4mm 00 Jay x 32Gm x 32Gm 4mm x 32Gm [facility] 2018- No QD BD Ultra-Fine Ultra-Fine 0-09 Ultra-Fine Christina Pen Christina Pen 00:00: Christina Pen Jay 4mm Jay 4mm 00 Jay x 32Gm x 32Gm 4mm x 32Gm [facility] 2018-05 No QD BD Ultra-Fine Ultra-Fine 0-09 Ultra-Fine Christina Pen Christina Pen 00:00: Christina Pen Jay 4mm Jay 4mm 00 Jay x 32Gm x 32Gm 4mm x 32Gm [facility] 2018- No QD BD Ultra-Fine Ultra-Fine 0-09 Ultra-Fine Christina Pen Christina Pen 00:00: Christina Pen Jay 4mm Jay 4mm 00 Jay x 32Gm x 32Gm 4mm x 32Gm [facility] 2018- No QD BD Ultra-Fine Ultra-Fine 0-09 Ultra-Fine Christina Pen Christina Pen 00:00: Christina Pen Jay 4mm Jay 4mm 00 Jay x 32Gm x 32Gm 4mm x 32Gm [facility] 2018-05 No QD BD Ultra-Fine Ultra-Fine 0-09 Ultra-Fine Christina Pen Christina Pen 00:00: Christina Pen Jay 4mm Jay 4mm 00 Jay x 32Gm x 32Gm 4mm x 32Gm [facility] 2018- No QD BD Ultra-Fine Ultra-Fine 0-09 Ultra-Fine Christina Pen Christina Pen 00:00: Christina Pen Jay 4mm Jay 4mm 00 Jay x 32Gm x 32Gm 4mm x 32Gm [facility] 2018- No QD BD Ultra-Fine Ultra-Fine 0-09 Ultra-Fine Christina Pen Christina Pen 00:00: Christina Pen Jay 4mm Jay 4mm 00 Jay x 32Gm x 32Gm 4mm x 32Gm [facility] 2018- No QD BD Ultra-Fine Ultra-Fine 0-09 Ultra-Fine Christina Pen Christina Pen 00:00: Christina Pen Jay 4mm Jay 4mm 00 Jay x 32Gm x 32Gm 4mm x 32Gm [facility] 2018-05 No QD BD Ultra-Fine Ultra-Fine 0-09 Ultra-Fine Christina Pen Christina Pen 00:00: Christina Pen Jay 4mm Jay 4mm 00 Jay x 32Gm x 32Gm 4mm x 32Gm [facility] 2018-05 No QD BD Ultra-Fine Ultra-Fine 0-09 Ultra-Fine Christina Pen Christina Pen 00:00: Christina Pen Jay 4mm Jay 4mm 00 Jay x 32Gm x 32Gm 4mm x 32Gm [facility] 2018-05 No QD BD Ultra-Fine Ultra-Fine 0-09 Ultra-Fine Christina Pen Christina Pen 00:00: Christina Pen Jay 4mm Jay 4mm 00 Jay x 32Gm x 32Gm 4mm x 32Gm [facility] 2018-05 No QD BD Ultra-Fine Ultra-Fine 0-09 Ultra-Fine Christina Pen Chrsitina Pen 00:00: Christina Pen Jay 4mm Jay 4mm 00 Jay x 32Gm x 32Gm 4mm x 32Gm [facility] 2018- No QD BD Ultra-Fine Ultra-Fine 0-09 Ultra-Fine Christina Pen Christina Pen 00:00: Christina Pen Jay 4mm Jay 4mm 00 Jay x 32Gm x 32Gm 4mm x 32Gm [facility] 2018- No QD BD Ultra-Fine Ultra-Fine 0-09 Ultra-Fine Christina Pen Christina Pen 00:00: Christina Pen Jay 4mm Jay 4mm 00 Jay x 32Gm x 32Gm 4mm x 32Gm BD BD 2019- No QD BD Ultra-Fine Ultra-Fine 0-09 Ultra-Fine Christina Pen Christina Pen 00:00: Christina Pen Jay 4mm Jay 4mm 00 Jay x 32Gm x 32Gm 4mm x 32Gm [...] Dexcom G6 Dexcom G6 No Dexcom G6 Field Service Manager - 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 Basaglmaulik Spiveyaglar Yes [place] 52 Units C ommon KwikPen KwikPen [facility] PreserVisio PreserVisio Yes [place] as Common n AREDS n AREDS [facility] directed Spir it - [facility] Citalopram Citalopram Yes [place] 1 tablet Common Hydrobromid Hydrobromid [facility] e - [facility] Stool Stool Yes [place] not Common Softener Softener [facility] defined Spi rit [facility] Gentle Gentle Yes [place] 1 tablet Commo n Laxative Laxative [facility] as needed S pirit [facility] Atorvastati Atorvastati Yes [place] 1 tablet Common n Calcium n Calcium [facility] Contour Contour Yes La USE 3 Common Test Test [facility] TIMES A [facility] Eliquis 2.5 Eliquis 2.5 Yes [place] 1 tablet Common mg mg [facility] Multivitami Multivitami Yes [place] as Common n Adult n Adult [facility] directed [facility] Carvedilol Carvedilol Yes La TAKE 1 Common [facility] TABLET BY Spirit MOUTH - [facility] TWICE A DAY ON [facility] DAYS Center Atorvastati Atorvastati Yes La TAKE 1 Common n Calcium n Calcium [facility] TABLET BY [facility] MOUTH - [facility] EVERY DAY [facility] GlipiZIDE GlipiZIDE Yes [place] 1 tablet Common [facility] Basaglar Basaglar Yes [place] 50 Units C ommon KwikPen KwikPen [facility] Advair HFA Advair HFA No 2{puffs [...] Dexcom G6 Dexcom G6 No Dexcom G6 Field Service Manager - Field Service Manager - Field Service Manager - Carvedilol Carvedilol No Carvedilol 12.5 [...] Dexcom G6 Dexcom G6 No Dexcom G6 Field Service Manager - Field Service Manager - Field Service Manager - glipiZIDE 5 glipiZIDE 5 No [...] Dexcom G6 Dexcom G6 No Dexcom G6 Field Service Manager - Field Service Manager - Field Service Manager - Ipratropium Ipratropium No Ipratropiu -Albuterol [...] Dexcom G6 Dexcom G6 No Dexcom G6 Field Service Manager - Field Service Manager - Field Service Manager - Gentle Gentle No 1{table QD [...] Dexcom G6 Dexcom G6 No Dexcom G6 Field Service Manager - Field Service Manager - Field Service Manager - PreserVisio PreserVisio No PreserVisi n [...] Dexcom G6 Dexcom G6 No Dexcom G6 Field Service Manager - Field Service Manager - Field Service Manager - Advair HFA Advair HFA No [...] Dexcom G6 Dexcom G6 No Dexcom G6 Field Service Manager - Field Service Manager - Field Service Manager - Advair HFA Advair HFA No [...] Dexcom G6 Dexcom G6 No Dexcom G6 Field Service Manager - Field Service Manager - Field Service Manager - Advair HFA Advair HFA No [...] Dexcom G6 Dexcom G6 No Dexcom G6 Field Service Manager - Field Service Manager - Field Service Manager - Atorvastati Atorvastati No 1{table QD [...] Dexcom G6 Dexcom G6 No Dexcom G6 Field Service Manager - Field Service Manager - Field Service Manager - Atorvastati Atorvastati No Atorvastat n [...] FluAD 2021-03-30 Completed [facility] 13:13:00 - [facility] FluAD FluAD 2021-03-30 Completed [facility] 13:13:00 - [facility] FluAD FluAD 2021-03-30 Completed [facility] 13:13:00 - [facility] FluAD FluAD 2021-03-30 Completed [facility] 13:13:00 - [facility] FluAD FluAD 2021-03-30 Completed [facility] 13:13:00 - [facility] FluAD FluAD 2021-03-30 Completed [facility] 13:13:00 - [facility] FluAD FluAD 2021-03-30 Completed [facility] 13:13:00 - [facility] FluAD FluAD 2021-03-30 Completed [facility] 13:13:00 - [facility] FluAD FluAD 2021-03-30 Completed [facility] 13:13:00 - [facility] FluAD FluAD 2021-03-30 Completed [facility] 13:13:00 - [facility] FluAD FluAD 2021-03-30 Completed [facility] 13:13:00 - [facility] FluAD FluAD 2021-03-30 Completed [facility] 13:13:00 - [facility] FluAD FluAD 2021-03-30 Completed [facility] 13:13:00 - [facility] FluAD FluAD 2021-03-30 Completed [facility] 13:13:00 - [facility] FluAD FluAD 2021-03-30 Completed [facility] 13:13:00 - [facility] FluAD FluAD 2021-03-30 Completed [facility] 13:13:00 - [facility] FluAD FluAD 2021-03-30 Completed [facility] 13:13:00 - [facility] FluAD FluAD 2021-03-30 Completed [facility] 13:13:00 - [facility] FluAD FluAD 2021-03-30 Completed [facility] 13:13:00 - [facility] FluAD FluAD 2021-03-30 Completed [facility] 13:13:00 - [facility] FluAD FluAD 2021-03-30 Completed [facility] 13:13:00 - [facility] FluAD FluAD 2021-03-30 Completed [facility]:13:00 [facility] COVID-19 Vaccine COVID-19 Vaccine 2020-08-19 Completed [facility] (Andrea) (Andrea) 09:17:00 [facility] COVID-19 Vaccine COVID-19 Vaccine 2020-08-19 Completed [facility] ([facility]rea) (Andrea) 09:17: [facility] COVID-19 Vaccine COVID-19 Vaccine 2020-08-19 Completed [facility] (Andrea) (Andrea) 09:17: [facility] COVID-19 Vaccine COVID-19 Vaccine 2020-08-19 Completed [facility] (Andrea) (Andrea) 09:17: [facility] COVID-19 Vaccine COVID-19 Vaccine 2020-08-19 Completed [facility] (Andrea) (Andrea) 09:17:00 - [facility] COVID-19 Vaccine COVID-19 Vaccine 2020-08-19 Completed [facility] (Andrea) (Andrea) 09:17:00 - [facility] COVID-19 Vaccine COVID-19 Vaccine 2020-08-19 Completed [facility] (Andrea) (Andrea) 09:17:00 - [facility] COVID-19 Vaccine COVID-19 Vaccine 2020-08-19 Completed [facility] ([facility]rea) (Andrea) 09:17:00 [facility] COVID-19 Vaccine COVID-19 Vaccine 2020-08-19 Completed [facility] (Andrea) (Andrea) 09:17:00 - [facility] COVID-19 Vaccine COVID-19 Vaccine 2020-08-19 Completed [facility] (Andrea) (Andrea) 09:17:00 - [facility] COVID-19 Vaccine COVID-19 Vaccine 2020-08-19 Completed [facility] ([facility]rea) (Andrea) 09:17:00 [facility] COVID-19 Vaccine COVID-19 Vaccine 2020-08-19 Completed [facility] (Andrea) (Andrea) 09:17:00 [facility] COVID-19 Vaccine COVID-19 Vaccine 2020-08-19 Completed [facility] (Andrea) (Andrea) 09:17:00 - [facility] COVID-19 Vaccine COVID-19 Vaccine 2020-08-19 Completed [facility] (Andrea) (Andrea) 09:17:00 [facility] COVID-19 Vaccine COVID-19 Vaccine 2020-08-19 Completed [facility] (Andrea) (Andrea) 09:17:00 [facility] COVID-19 Vaccine COVID-19 Vaccine 2020-08-19 [facility]pleted [facility] (Andrea) (Andrea) 09:17:00 [facility] COVID-19 Vaccine COVID-19 Vaccine 2020-08-19 Completed [facility] (Andrea) (Andrea) 09:17:00 - [facility] COVID-19 Vaccine COVID-19 Vaccine 2020-08-19 Completed [facility] (Andrea) (Andrea) 09:17:00 - [facility] COVID-19 Vaccine COVID-19 Vaccine 2020-08-19 Completed [facility] (Andrea) (Andrea) 09:17:00 - [facility] COVID-19 Vaccine COVID-19 Vaccine 2020-08-19 Completed [facility] (Andrea) (Andrea) 09:17:00 - [facility] COVID-19 Vaccine COVID-19 Vaccine 2020-08-19 Completed [facility] (Andrea) (Andrea) 09:17:00 - [facility] COVID-19 Vaccine COVID-19 Vaccine 2020-08-19 Completed [facility] (Andrea) (Andrea) 09:17:00 [facility] COVID-19 Vaccine COVID-19 Vaccine 2020-08-19 Completed [facility] (Andrea) (Andrea) 09:17:00 - [facility] COVID-19 Vaccine COVID-19 Vaccine 2020-08-19 Completed [facility] (Andrea) (Andrea) 09:17:00 [facility] Vital Signs Vital Name Observation Time Observation Value Comments Source Systolic blood 2022-10-31 17:36:00 132 mm[Hg] Univer sity of pressure [facility] Diastolic blood 2022-10-31 17:36:00 61 mm[Hg] Unive rsity of pressure [facility] Heart rate 2022-10-31 17:36:00 67 /min [facility] Respiratory rate 2022-10-31 17:36:00 19 /min [facility] Oxygen saturation in 2022-10-31 17:36:00 100 /min [facility] Arterial blood by [facility] Pulse oximetry Branch Body temperature 2022-10-31 13:59:00 37.39 Makayla [facility] Body height 2022-10-31 13:59:00 177.8 cm [facility] Body weight 2022-10-31 13:59:00 71.668 kg [facility] BMI 2022-10-31 13:59:00 22.67 kg/m2 [facility] Heart rate 2022-10-15 19:00:00 92 /min [facility] Respiratory rate 2022-10-15 19:00:00 13 /min [facility] Oxygen saturation in 2022-10-15 19:00:00 86 /min [facility] Arterial blood by [facility] Pulse oximetry Branch Systolic blood 2022-10-15 17:00:00 144 mm[Hg] Univer sity of [facility] Diastolic blood 2022-10-15 17:00:00 53 mm[Hg] Unive rsity [facility] Body temperature 2022-10-15 16:08:00 37.44 Makayla [facility] Body weight 2022-10-15 14:00:00 70.489 kg [facility] BMI 2022-10-15 14:00:00 25.86 kg/m2 [facility] Body height 2022-10-10 19:00:00 165.1 cm [facility] height 2022-02-17 15:00:00 70 [in_i] [facility] weight 2022-02-17 15:00:00 208 [lb_av] [facility] temperature 2022-02-17 15:00:00 98.1 [degF] [facility] 2022-02-17 15:00:00 29.84 kg/m2 [facility] blood pressure 2022-02-17 15:00:00 121 mm[Hg] [facility] - [facility] blood pressure 2022-02-17 15:00:00 61 mm[Hg] [facility] - diastolic [facility] height 2022-01-06 14:30:00 70 [in_i] [facility] weight 2022-01-06 14:30:00 208 [lb_av] [facility] bmi 2022-01-06 14:30:00 29.84 kg/m2 Common S [facility]irit - [facility] blood pressure 2022-01-06 14:30:00 137 mm[Hg] [facility] - systolic [facility] blood pressure 2022-01-06 14:30:00 79 mm[Hg] [facility] - diastolic [facility] height 2022-01-01 11:40:00 70 [in_i] [facility] - [facility] weight 2022-01-01 11:40:00 208 [lb_av] [facility] - [facility] temperature 2022-01-01 11:40:00 98 [degF] [facility] - [facility] bmi 2022-01-01 11:40:00 29.84 kg/m2 Common [facility] - [facility] blood pressure 2022-01-01 11:40:00 138 mm[Hg] [facility] - systolic [facility] blood pressure 2022-01-01 11:40:00 82 mm[Hg] [facility] - diastolic [facility] height 2021-11-03 09:45:00 70 [in_i] Common [facility] - [facility] weight 2021-11-03 09:45:00 210 [lb_av] Common [facility] - [facility] bmi 2021-11-03 09:45:00 30.13 kg/m2 Common [facility] - [facility] blood pressure 2021-11-03 09:45:00 144 mm[Hg] [facility] - systolic [facility] blood pressure 2021-11-03 09:45:00 86 mm[Hg] [facility] - diastolic [facility] height 2021-07-28 14:10:00 70 [in_i] Common S [facility]irit [facility] weight 2021-07-28 14:10:00 211.8 [lb_av] [facility] temperature 2021-07-28 14:10:00 97.5 [degF] Common S pirit [facility] bmi 2021-07-28 14:10:00 30.39 kg/m2 Common S pirit [facility] oximetry 2021-07-28 14:10:00 93 % [facility] respiratory rate 2021-07-28 14:10:00 16 /min Comm on [facility] blood pressure 2021-07-28 14:10:00 134 mm[Hg] [facility] - systolic [facility] blood pressure 2021-07-28 14:10:00 63 mm[Hg] [facility] - diastolic [facility] height 2021-07-28 13:20:00 70 [in_i] [facility] weight 2021-07-28 13:20:00 211.8 [lb_av] [facility] temperature 2021-07-28 13:20:00 97.5 [degF] [facility] bmi 2021-07-28 13:20:00 30.39 kg/m2 [facility] oximetry 2021-07-28 13:20:00 93 % [facility] respiratory rate 2021-07-28 13:20:00 16 /min Comm on [facility] blood pressure 2021-07-28 13:20:00 134 mm[Hg] Common [facility] systolic [facility] blood pressure 2021-07-28 13:20:00 62 mm[Hg] [facility] diastolic [facility] height 2021-04-28 13:10:00 70 [in_i] [facility] weight 2021-04-28 13:10:00 215.9 [lb_av] [facility] temperature 2021-04-28 13:10:00 97.3 [degF] [facility] bmi 2021-04-28 13:10:00 30.98 kg/m2 [facility] oximetry 2021-04-28 13:10:00 95 % [facility] respiratory rate 2021-04-28 13:10:00 17 /min Comm on [facility] blood pressure 2021-04-28 13:10:00 121 mm[Hg] [facility] - systolic [facility] blood pressure 2021-04-28 13:10:00 60 mm[Hg] [facility] - diastolic [facility] height 2021-03-12 09:30:00 70 [in_i] Common [facility] weight 2021-03-12 09:30:00 211.4 [lb_av] Common [facility] temperature 2021-03-12 09:30:00 97.7 [degF] [facility] bmi 2021-03-12 09:30:00 30.33 kg/m2 [facility] oximetry 2021-03-12 09:30:00 95 % [facility] respiratory rate 2021-03-12 09:30:00 16 /min Comm on [facility] - [facility] blood pressure 2021-03-12 09:30:00 132 mm[Hg] [facility] - systolic [facility] blood pressure 2021-03-12 09:30:00 67 mm[Hg] Common [facility] - diastolic [facility] Heart Rate 2022-01-02 21:14:00 [facility] Rate 2022-01-02 21:14:00 [facility] [place] Systolic (mm Hg) 2022-01-02 21:14:00 [facility] Diastolic (mm Hg) 2022-01-02 21:14:00 [facility] [place] Height 2022-01-02 17:28:00 [facility] BMI Calculated 2022-01-02 17:28:00 [facility] Weight 2022-01-02 17:28:00 [facility] Systolic (mm Hg) 2022-01-02 17:28:00 [facility] [place] Diastolic (mm Hg) 2022-01-02 17:28:00 [facility] [place] Heart Rate 2022-01-02 17:28:00 [facility]itory Rate 2022-01-02 17:28:00 [facility] Temperature Oral (F) 2022-01-02 17:28:00 97.5 F [facility] Temperature Oral (F) 2021-12-17 00:00:00 98.0 F [facility] Heart Rate 2021-12-17 00:00:00 [facility] [place] Respitory Rate 2021-12-17 00:00:00 [facility] Systolic (mm Hg) 2021-12-17 00:00:00 [facility] [place] Diastolic (mm Hg) 2021-12-17 00:00:00 [facility] Heart Rate 2021-12-16 21:00:00 [facility] Respitory Rate 2021-12-16 21:00:00 [facility] [place] Systolic (mm Hg) 2021-12-16 21:00:00 [facility] Diastolic (mm Hg) 2021-12-16 21:00:00 Mem [facility] [place] Temperature Oral (F) 2021-12-16 21:00:00 98.0 F [facility] [place] Heart Rate 2021-12-16 20:20:00 [facility] Respitory Rate 2021-12-16 20:20:00 [facility] Systolic (mm Hg) 2021-12-16 20:20:00 [facility] [place] Diastolic (mm Hg) 2021-12-16 20:20:00 [facility] Temperature Oral (F) 2021-12-16 20:20:00 97.3 F [facility] Heart Rate 2021-12-15 08:58:06 [facility] [place] Systolic (mm Hg) 2021-12-15 08:58:01 [facility] [place] Diastolic (mm Hg) 2021-12-15 08:58:01 [facility] Heart Rate 2021-12-15 08:58:01 [facility] [place] Temperature Oral (F) 2021-12-15 08:57:27 98.2 F [facility] Temperature Oral (F) 2021-12-15 05:00:00 97.5 F [facility] [place] Heart Rate 2021-12-15 05:00:00 [facility] Systolic (mm Hg) 2021-12-15 05:00:00 [facility] [place] Diastolic (mm Hg) 2021-12-15 05:00:00 [facility] [place] Height 2021-12-15 03:03:00 177.8 cm [facility] [place] Weight 2021-12-15 03:03:00 [facility] [place] BMI Calculated 2021-12-15 03:03:00 [facility] Temperature Oral (F) 2021-12-15 01:20:46 97.4 F [facility] Systolic (mm Hg) 2021-12-15 01:20:42 [facility] Diastolic (mm Hg) 2021-12-15 01:20:42 [facility] [place] Respitory Rate 2021-12-15 00:45:00 [facility] [place] Height 2021-12-15 00:13:00 172.72 cm [facility] BMI Calculated 2021-12-15 00:13:00 [facility] Weight 2021-12-15 00:13:00 [facility] [place] Respitory Rate 2021-12-14 23:56:00 [facility] [place] Height 2021-12-14 23:34:00 172.72 cm [facility] Weight 2021-12-14 23:34:00 [facility] Respitory Rate 2021-12-14 23:18:00 [facility] [place] BMI Calculated 2021-12-14 19:29:00 [facility] [place] Temperature Oral (F) 2021-12-04 14:04:00 97.9 F [facility] [place] Heart Rate 2021-12-04 14:04:00 [facility] [place] Respitory Rate 2021-12-04 14:04:00 [facility] Systolic (mm Hg) 2021-12-04 14:04:00 [facility] [place] Diastolic (mm Hg) 2021-12-04 14:04:00 Mem [facility] [place] Temperature Oral (F) 2021-12-04 12:30:00 97.9 F [facility] Heart Rate 2021-12-04 12:30:00 [facility] [place] Respitory Rate 2021-12-04 12:30:00 [facility] [place] Systolic (mm Hg) 2021-12-04 12:30:00 Heath [facility] [place] Diastolic (mm Hg) 2021-12-04 12:30:00 [facility] Respitory Rate 2021-12-04 11:45:00 [facility] [place] Heart Rate 2021-12-04 11:45:00 [facility] Temperature Oral (F) 2021-12-04 11:45:00 98.4 F [facility] Systolic (mm Hg) 2021-12-04 04:57:00 [facility] [place] Diastolic (mm Hg) 2021-12-04 04:57:00 [facility] Weight 2021-12-03 23:22:00 [facility] [place] Respitory Rate 2021-11-27 00:01:00 [facility] Heart Rate 2021-11-26 21:50:00 [facility] Respitory Rate 2021-11-26 21:50:00 [facility] Systolic (mm Hg) 2021-11-26 21:50:00 [facility] Diastolic (mm Hg) 2021-11-26 21:50:00 [facility] Temperature Oral (F) 2021-11-26 18:40:00 98.0 F [facility] [place] Heart Rate 2021-11-26 18:40:00 [facility] [place] Respitory Rate 2021-11-26 18:40:00 [facility] [place] Systolic (mm Hg) 2021-11-26 18:40:00 [facility] Diastolic (mm Hg) 2021-11-26 18:40:00 Mem [facility] [place] Heart Rate 2021-11-26 16:41:35 [facility] Systolic (mm Hg) 2021-11-26 16:41:27 Heath rial [place] Diastolic (mm Hg) 2021-11-26 16:41:27 Mem [facility] [place] Temperature Oral (F) 2021-11-26 16:40:28 98.4 F [facility] [place] Temperature Oral (F) 2021-11-26 13:00:17 98.3 F [facility] Height 2021-11-25 03:24:00 177.8 cm [facility] BMI Calculated 2021-11-25 03:24:00 [facility] [place] Weight 2021-11-25 03:24:00 [facility] Procedures Procedure Date / Time Performing Clinician Source Performed CT ABDOMEN PELVIS WO 2022-10-31 14:52:20 Ronnie Ayala [facility] CT THORAX WO CONTRAST 2022-10-31 14:52:20 Ronnie Ayala [facility] [place] LIPASE 2022-10-31 14:22:00 Ronnie Ayala [facility] COMP. METABOLIC PANEL 2022-10-31 14:22:00 Ronnie Ayala [facility] ([id number]) Medical Branch CBC WITH DIFF 2022-10-31 14:22:00 Ronnie Ayala [facility] NOTICE OF PRIVACY 2022-10-31 13:54:24 Doctor Unassigned, [facility] PRACTICES [facility] [place] CONSENT/REFUSAL FOR 2022-10-31 13:53:28 Doctor Unassigned, [facility] DIAGNOSIS AND TREATMENT [place] [facility] [place] POCT GLUCOSE 2022-10-15 16:16:[address] [facility] (AUTOMATED) [facility] XR CHEST 1 VW 2022-10-15 14:27:00 Abdoul [facility] POCT GLUCOSE 2022-10-15 12:24:00 Dominic [facility] (AUTOMATED) [facility] BASIC METABOLIC PANEL 2022-10-15 09:26:00 Marianna Barbour [facility] (NA, K, CL, CO2, Medical Branch GLUCOSE, BUN, CREATININE, CA) CBC WITH DIFF 2022-10-15 09:26:00 Marianna Barbour [facility] PREPARE PACKED RBC 2022-10-15 05:15:[address] [facility] POCT GLUCOSE 2022-10-15 01:54:00 Mine Mosqueda [facility] (AUTOMATED) [facility] XR CHEST 1 VW 2022-10-15 01:09:38 Abdoul [facility] IR THORACENTESIS WITH 2022-10-14 23:00:51 Marianna Barbour [facility] IMAGING [facility] GLUCOSE BODY FLUID 2022-10-14 22:53:00 Marianna Barbour [facility] T.PROTEIN BODY FLUID 2022-10-14 22:53:[address] [facility] BODY FLUID DIRECT COUNT 2022-10-14 22:53:00 Marianna Barbour [facility] BODY FLUID 2022-10-14 22:53:00 Marianna Barbour [facility] CULTURE(AEROBIC/ANAEROB [facility] [place] IC) [facility]DH TOTAL BODY FLUID 2022-10-14 22:53:[address] [facility] XR CHEST 1 VW 2022-10-14 22:38:00 Josi Schreiber [facility] POCT GLUCOSE 2022-10-14 21:38:00 Mine Mosqueda [facility] (AUTOMATED) [facility] HEPATITIS B SURFACE 2022-10-14 19:06:00 Anita Sanchez [facility] ANTIBODY [facility] HEPATITIS B SURFACE 2022-10-14 19:06:00 Anita Sanchez [facility] ANTIGEN [facility] POCT GLUCOSE 2022-10-14 16:36:00 Mine Mosqueda [facility] (AUTOMATED) [facility] POCT GLUCOSE 2022-10-14 12:50:00 Mine Mosqueda [facility] (AUTOMATED) [facility] Branch PHOSPHORUS 2022-10-14 08:27:00 Mine Mosqueda [facility] MAGNESIUM 2022-10-14 08:27:00 Mine Mosqueda [facility] BASIC METABOLIC PANEL 2022-10-14 08:27:00 Mine Mosqueda [facility] (NA, K, CL, CO2, [facility] [place] GLUCOSE, BUN, CREATININE, CA) VANCOMYCIN TROUGH 2022-10-14 08:27:00 Dahiana [facility] CBC WITH DIFF 2022-10-14 08:27:00 Mine Mosqueda [facility] DISCLOSURE AND CONSENT, 2022-10-14 05:01:00 Doctor Unassigned, U [facility] MEDICAL AND SURGICAL [place] [facility] PROCEDURES POCT GLUCOSE 2022-10-14 03:13:00 Mine Mosqueda [facility] (AUTOMATED) Medical Branch POCT GLUCOSE 2022-10-13 21:41:00 Mine Mosqueda [facility] (AUTOMATED) Medical Branch POCT GLUCOSE 2022-10-13 16:25:00 Mine Mosqueda [facility] (AUTOMATED) Medical Branch POCT GLUCOSE 2022-10-13 12:34:00 Dominic, [facility] (AUTOMATED) Medical [facility] BASIC METABOLIC PANEL 2022-10-13 09:16:00 Mine Mosqueda [facility] (NA, K, CL, CO2, Medical Branch GLUCOSE, BUN, CREATININE, CA) CBC WITH DIFF 2022-10-13 09:16:00 Dominic [facility] POCT GLUCOSE 2022-10-13 01:24:00 Dominic [facility] (AUTOMATED) [facility] POCT GLUCOSE 2022-10-12 21:23:00 Dominic [facility] (AUTOMATED) [facility] TRANSFUSE PACKED RBC 2022-10-12 18:39:00 Luis A [facility] PREPARE PACKED RBC 2022-10-12 18:29:53 Luis A [facility] POCT GLUCOSE 2022-10-12 16:47:00 Dominic [facility] (AUTOMATED) [facility] BLOOD CULTURE SCREEN 2022-10-12 15:52:00 Luis A [facility] BLOOD CULTURE SCREEN 2022-10-12 15:40:00 Luis A [facility] XR CHEST 1 VW 2022-10-12 14:31:35 Dominic [facility] POCT GLUCOSE 2022-10-12 12:44:00 Mine Mosqueda [facility] (AUTOMATED) [facility] Branch PHOSPHORUS 2022-10-12 09:58:00 Mine Mosqueda [facility] MAGNESIUM 2022-10-12 09:58:00 Dominic [facility] TROPONIN I 2022-10-12 09:58:00 Tim Alejandro [facility] BASIC METABOLIC PANEL 2022-10-12 09:58:00 Mine Mosqueda [facility] (NA, K, CL, CO2, Medical Branch GLUCOSE, BUN, CREATININE, CA) LIPID PANEL 2022-10-12 09:58:00 Tim Alejandro [facility] ([id number])(TOTAL Medical Branch CHOLESTEROL, TRIGLYCERIDES, HDL) CBC WITH DIFF 2022-10-12 09:58:00 Dominic [facility] N-TERMINAL PRO-BNP 2022-10-12 09:58:00 Tim Ale[facility] POCT GLUCOSE 2022-10-12 06:42:00 Dominic [facility] (AUTOMATED) Medical Branch TROPONIN I 2022-10-12 03:10:00 Luis A [facility] POCT GLUCOSE 2022-10-12 01:19:00 Dominic [facility] (AUTOMATED) [facility] OCCULT (GUAIAC) BLOOD 2022-10-11 21:58:[address] [facility] POCT GLUCOSE 2022-10-11 21:19:00 Dominic [facility] (AUTOMATED) [facility] Branch IRON 2022-10-11 18:20:00 Dominic [facility] TOTAL IRON BINDING 2022-10-11 18:20:00 Mine Mosqueda [facility] CAPACITY [facility] TROPONIN I 2022-10-11 18:20:00 Luis A [facility] RETICULOCYTES AUTOMATED 2022-10-11 18:20:00 Dominic [facility] PROCALCITONIN 2022-10-11 18:20:00 Dominic [facility] POCT GLUCOSE 2022-10-11 16:58:00 Dominic [facility] (AUTOMATED) [facility] POCT GLUCOSE 2022-10-11 16:05:00 Dominic [facility] (AUTOMATED) [facility] ABORH CONFIRMATION (LAB 2022-10-11 15:23:00 Luis A [facility] ONLY) [facility] [place] TROPONIN I 2022-10-11 15:08:00 Luis A [facility] POCT GLUCOSE 2022-10-11 14:22:00 Dominic [facility] (AUTOMATED) [facility] [place] TRANSTHORACIC ECHO 2022-10-11 13:32:00 Luis A [facility] (TTE) COMPLETE [facility] Branch POCT GLUCOSE 2022-10-11 13:04:00 Dominic [facility] (AUTOMATED) Medical Branch POCT GLUCOSE 2022-10-11 12:04:00 Dominic [facility] (AUTOMATED) Medical [facility] POCT GLUCOSE 2022-10-11 11:21:00 Dominic [facility] (AUTOMATED) [facility] HB ABO GROUPING 2022-10-11 11:20:00 Luis A [facility] Branch PHOSPHORUS 2022-10-11 09:41:00 Luis A [facility] MAGNESIUM 2022-10-11 09:41:00 Luis A [facility] TROPONIN I 2022-10-11 09:41:00 Luis A [facility] BASIC METABOLIC PANEL 2022-10-11 09:41:00 Luis A [facility] (NA, K, CL, CO2, Medical Branch GLUCOSE, BUN, CREATININE, CA) CBC WITHOUT DIFF 2022-10-11 09:41:00 Luis A [facility] POCT GLUCOSE 2022-10-11 09:41:00 Mine Mosqueda [facility] (AUTOMATED) [facility] N-TERMINAL PRO-BNP 2022-10-11 09:41:00 Luis A [facility] POCT GLUCOSE 2022-10-11 08:43:00 Dominic [facility] (AUTOMATED) Medical Branch POCT GLUCOSE 2022-10-11 07:36:00 Dominic [facility] (AUTOMATED) Medical Branch POCT GLUCOSE 2022-10-11 06:18:00 Dominic [facility] (AUTOMATED) Medical Branch POCT GLUCOSE 2022-10-11 05:52:00 Dominic [facility] (AUTOMATED) Medical Branch POCT GLUCOSE 2022-10-11 04:24:00 Dominic [facility] (AUTOMATED) Medical Branch POCT GLUCOSE 2022-10-11 03:33:00 Dominic [facility] (AUTOMATED) Medical Branch POCT GLUCOSE 2022-10-11 02:08:00 Dominic [facility] (AUTOMATED) Medical Branch POCT GLUCOSE 2022-10-11 01:08:00 Dominic [facility] (AUTOMATED) [facility] MRSA / MSSA SCREEN BY 2022-10-11 00:16:00 Mine Mosqueda [facility] ERNA [facility] CRITICAL CARE 2022-10-10 23:43:37 Fabian Fernandes [facility] POCT GLUCOSE 2022-10-10 23:20:00 Dominic [facility] (AUTOMATED) Medical Branch POCT GLUCOSE 2022-10-10 21:42:00 Fabian Fernandes [facility] (AUTOMATED) Medical Branch POCT GLUCOSE 2022-10-10 21:25:00 Fabian Fernandes [facility] (AUTOMATED) [facility] HB ECG ROUTINE & RHYTHM 2022-10-10 21:20:02 Fabian Fernandes [facility] STRIP [facility] AC PANEL 21 + LACTIC 2022-10-10 20:50:00 Fabian Fernandes [facility] ACID [facility] Branch POCT GLUCOSE 2022-10-10 20:32:00 Fabian Fernandes [facility] (AUTOMATED) [facility] CT THORAX WO CONTRAST 2022-10-10 20:31:[address] [facility] CT ABDOMEN PELVIS WO 2022-10-10 20:30:49 Fabian Fernandes [facility] CONTRAST [facility] CT HEAD WO CONTRAST 2022-10-10 20:30:49 Fabian Fernandes [facility] POCT GLUCOSE 2022-10-10 19:43:00 Fabian Fernandes [facility] (AUTOMATED) [facility] XR CHEST 1 VW 2022-10-10 19:40:00 Fabian Fernandes [facility] BLOOD CULTURE SCREEN 2022-10-10 19:38:[address] [facility] BLOOD CULTURE WORKUP 2022-10-10 19:38:[address] [facility] GRAM POSITIVE BLOOD 2022-10-10 19:38:00 Fabian Fernandes [facility] PATHOGENS DNA Medical Branch PROBE-AEROBIC ASSIGNMENT OF BENEFITS 2022-10-10 19:11:20 Doctor Unassigned, [facility] [place] [facility] CONSENT/REFUSAL FOR 2022-10-10 19:10:59 Doctor Unassigned, [facility] DIAGNOSIS AND TREATMENT [place] [facility] [place] TROPONIN I 2022-10-10 19:08:00 Fabian Fernandes [facility] COMP. METABOLIC PANEL 2022-10-10 19:08:00 Fabian Fernandes [facility] ([id number]) [facility] CBC WITH DIFF 2022-10-10 19:08:00 Dom [facility] [place] GLYCOSYLATED HEMOGLOBIN 2022-10-10 19:08:00 Mine Mosqueda [facility] (A1C) Medical Branch N-TERMINAL PRO-BNP 2022-10-10 19:08:00 Fabian Fernandes [facility] [place] POCT GLUCOSE 2022-10-10 18:58:00 [facility] (AUTOMATED) Medical Branch [id number] 2021-10-18 00:00:00 Andrade day Encounters Start End Encounter Admission Attending Care Care Encounter Source Date/Time Date/Time Type Type Clinicians Facility Department ID 2022-11-10 Outpatient [facility], STLMLC STLMLC [id number] Common 11:36:01 [facility] [address] [facility] 2022-05-20 Outpatient [facility], STLMLC STLMLC [id number] Common 08:24:01 [place] [facility] 2022-05-15 Outpatient [facility], STLMLC STLMLC [id number] [place] 08:53:00 [place] [address] [facility] 2022-05-11 Outpatient [facility], STLMLC STLMLC [id number] [place] 14:49:00 [place] [address] [facility] 2022-05-08 Outpatient [facility], STLMLC STLMLC [id number] [place] 10:15:01 [place] [address] [facility] 2022-05-07 Outpatient [facility], STLMLC STLMLC [id number] [place] 11:53:00 [place] [address] [facility] 2022-02-18 Outpatient [facility], STLMLC STLMLC [id number] [place] 12:05:01 [place] [address] [facility] 2022-01-01 Outpatient [facility], STLMLC STLMLC [id number] [place] 10:24:01 [place] [address] [facility] 2021-12-29 Outpatient [facility], STLMLC STLMLC [id number] Common 08:34:00 [place] [facility] 2021-12-16 Outpatient [facility] [id number] [place] 14:42:21 [id number] [facility] 2021-11-19 Outpatient [facility], STLMLC STLMLC [id number] [place] 08:42:01 [place] [address] [facility] 2021-11-03 Outpatient [facility], STLMLC STLMLC [id number] [place] 10:33:01 [place] [address] [facility] 2021-10-15 Outpatient 3 [id number] ENCPL REF [facility] 08:19:25 [facility] [place] [facility] 2021-10-14 Outpatient 3 [id number] ENCPL REF [id number] [facility] 11:59:03 0517 [facility] [place] 2021-06-25 Outpatient [facility], STLMLC STLMLC [id number] [place] 14:22:06 [place] [address] [facility] 2021-06-25 Outpatient [facility], STLMLC STLMLC [id number] [place] 14:13:51 [place] [address] [facility] 2021-06-25 Outpatient [facility], STLMLC STLMLC [id number] [place] 13:38:12 [place] [address] [facility] 2021-06-25 Outpatient [facility], STLMLC STLMLC [id number] Common 12:43:29 [place] [address] [facility] 2021-06-25 Outpatient [facility], STLMLC STLMLC [id number] [place] 12:42:27 [place] [address] [facility] 2021-06-25 Outpatient [facility], STLMLC STLMLC [id number] [place] 12:31:12 [place] [address] [facility] 2021-06-25 Outpatient [facility], STLMLC STLMLC [id number] [place] 12:31:03 [place] [address] [facility] 2021-06-25 Outpatient [facility], STLMLC STLMLC [id number] Common 12:30:21 [place] [address] [facility] 2021-06-25 Outpatient [facility], STLMLC STLMLC [id number] [place] 11:00:43 [place] [address] [facility] 2022-10-31 2022-10-31 Emergency X [facility] ERT [id number] Univers 09:00:00 12:40:00 [facility]22-10-[facility] 2022-10-31 [facility] [id number] Univers 09:00:00 12:40:00 Ronnie Corral FOREIGN [id number] i ty of NATASHA 4.2.7.2.686 [facility] [id number] [facility] [address] 2022-10-16 2022-10-16 Transition SHAJI Davis [id number] Univers 00:00:00 00:00:00 of Care Ubaldo Avendano TORI [id number] ity of MAGGIE 4.2.7.2.686 [facility] [id number] [facility] [address] 2022-10-10 2022-10-15 [facility] [id number] Univers 13:54:00 14:40:00 [facility] 2022-10-10 2022-10-[address] [facility] [id number] Univers 13:54:00 14:40:00 Encounter Mine Mosqueda [id number] ity JoeychelsiMarianna ANDRENATHALIA 4.2.7.2.686 [facility] [id number] [place] [id number] [place] 2022-07-03 2022-07-03 (TEL) STLMLC STLMLC [id number] Co mmon 00:00:00 00:00:00 [facility] 2022-06-08 2022-06-08 (TEL) STLMLC STLMLC [id number] Co mmon 00:00:00 00:00:00 [facility] 2022-05-06 2022-05-06 (TEL) STLMLC STLMLC [id number] Co mmon 00:00:00 00:00:00 [facility] 2022-04-03 2022-04-03 (TEL) STLMLC STLMLC [id number] Co mmon 00:00:00 00:00:00 [facility] 2022-02-17 2022-02-17 (TEL) STLMLC STLMLC [id number] Co mmon 00:00:00 00:00:00 [facility] 2022-02-17 2022-02-17 OFFICE STLMLC STLMLC [id number] Co mmon 00:00:00 00:00:00 VISIT Spirit ESTAB PT - [facility] LEVEL 4 [facility] 2022-01-06 2022-01-06 OFFICE STLMLC STLMLC [id number] Co mmon 00:00:00 00:00:00 VISIT Spirit ESTAB PT - [facility] LEVEL 4 [facility] 2022-01-02 2022-01-02 [facility] [id number] 17:12:00 21:33:00 r Booker 03 [facility] 2022-01-02 2022-01-02 [facility] [id number] [facility] [place] 17:12:00 21:33:00 r Booker 03 [facility] 2022-01-02 2022-01-02 Emergency E LONG, MHBL MHBL [id number] MHBL 12:12:00 16:33:00 CAREY 2022-01-02 2022-01-02 Outpatient Long, MHPL MHPL [id number] 12:12:00 16:33:00 Carey R 03 2022-01-01 2022-01-01 (TEL) STLMLC STLMLC [id number] Co mmon 00:00:00 00:00:00 [facility] 2022-01-01 2022-01-01 (EST. STLMLC STLMLC [id number] Co mmon 00:00:00 00:00:00 VIDEO) EST Spi rit VIRTUAL - [facility] VIDEO [facility] 2022-01-01 2022-01-01 (TEL) STLMLC STLMLC [id number] Co mmon 00:00:00 00:00:00 [facility] 2021-12-31 2021-12-31 (TEL) STLMLC STLMLC [id number] Co mmon 00:00:00 00:00:00 [facility] 2021-12-14 2021-12-17 [facility] [id number] Memoria 19:19:49 03:14:00 r Booker 02 [facility] 2021-12-14 2021-12-17 [facility] [id number] Memoria 19:19:49 03:14:00 r Booker [facility] 2021-12-14 2021-12-16 Inpatient E SAJJA, MHBL MED [id number] MHBL 18:26:00 22:14:00 ZACHARY 2021-12-14 2021-12-16 Outpatient Sajja, MHPL MHPL [id number] 14:19:49 22:14:00 Zachary 2021-12-14 2021-12-14 Outpatient Ajibade, MHPL MHPL [id number] 14:19:49 14:19:49 Monse 02 [facility] 2021-12-03 2021-12-04 [facility] [id number] Memoria 23:19:26 14:53:00 r Booker [facility] 2021-12-03 2021-12-04 [facility] [id number] Memoria 23:19:26 14:53:00 latrice Celeste [facility] 2021-12-03 2021-12-04 Outpatient Fadowole, MHPL MHPL [id number] 18:19:26 09:53:00 Pepper 01 [place] 2021-12-03 2021-12-04 Emergency E FADOWOLE, MHBL BL 7501 MHBL 18:19:00 09:53:00 PEPPER 2021-12-01 2021-12-01 Outpatient COH COH PIJFJKR ZIB COH 00:00:00 00:00:00 D-202112032021-11-25 2021-11-27 [facility] 3819 [id number] Memoria 03:23:10 00:12:00 n r Booker 00 [facility] 2021-11-25 2021-11-27 [facility]atio [facility] 3819 [id number] Memoria 03:23:10 00:12:00 comfort pollard [place] 00 l [facility] 2021-11-25 2021-11-26 Outpatient E CAROLINE, MHBL MED [id number] MHBL 10:37:00 19:12:00 MONSE 2021-11-24 2021-11-26 Outpatient Callumibajohnie, MHPL MHPL [id number] 22:23:10 19:12:00 Monse [facility] 2021-11-24 2021-11-26 Outpatient Callumyazmin, MHPL MHPL [id number] 22:23:10 19:12:00 Monse [facility] 2021-11-24 2021-11-24 (TEL) STLMLC STLMLC [id number] Co mmon 00:00:00 00:00:00 [facility] 2021-10-16 2021-11-03 Inpatient 3 NATHANIEL, ENCPL GILDA [id number] [facility] 23:26:00 21:40:00 CHILANGO 0519 [facility] [place] 2021-11-03 2021-11-03 OFFICE STLMLC STLMLC [id number] Co mmon 00:00:00 00:00:00 VISIT NEW Spir it PT LEVEL 4 - [facility] 2021-10-17 2021-10-17 (TEL) STLMLC STLMLC [id number] Co mmon 00:00:00 00:00:00 [facility] 2021-08-12 2021-08-12 (TEL) STLMLC STLMLC [id number] Co mmon 00:00:00 00:00:00 [facility] 2021-07-28 2021-07-28 OFFICE STLMLC STLMLC [id number] Co mmon 00:00:00 00:00:00 VISIT Spirit ESTAB PT - [facility]I LEVEL 4 [facility] 2021-07-28 2021-07-28 SUB ANNUAL STLMLC STLMLC [id number] Common 00:00:00 00:00:00 MCR Spirit WELLNESS - [facility] VISIT [facility] 2021-06-12 2021-06-12 (TEL) STLMLC STLMLC [id number] Co mmon 00:00:00 00:00:00 [facility] 2021-05-21 2021-05-21 (TEL) STLMLC STLMLC [id number] Co mmon 00:00:00 00:00:00 [facility] 2021-04-28 2021-04-28 OFFICE STLMLC STLMLC [id number] Co mmon 00:00:00 00:00:00 VISIT [facility] PT - [facility] 4 [facility] 2021-03-26 2021-03-26 (TEL) STLMLC STLMLC [id number] Co mmon 00:00:00 00:00:00 [facility] 2021-03-12 2021-03-12 OFFICE STLMLC STLMLC [id number] Co mmon 00:00:00 00:00:00 VISIT [facility] - [facility] 4 [facility] 2021-02-10 2021-02-10 Outpatient STLMLC STLMLC [id number] Common 00:00:00 00:00:00 [facility] 2021-01-31 2021-01-31 Outpatient STLMLC STLMLC [id number] Common 00:00:00 00:00:00 [facility] 2021-01-13 2021-01-13 Outpatient STLMLC STLMLC [id number] Common 00:00:00 00:00:00 [facility] 2021-01-08 2021-01-08 Outpatient STLMLC STLMLC [id number] Common 00:00:00 00:00:00 [facility] 2020-12-31 2020-12-31 Outpatient STLMLC STLMLC [id number] Common 00:00:00 00:00:00 [facility] 2020-12-11 2020-12-11 Outpatient STLMLC STLMLC [id number] Common 00:00:00 00:00:00 [facility] 2020-08-19 2020-08-19 Outpatient STLMLC STLMLC [id number] Common 00:00:00 00:00:00 [facility] 2020-07-19 2020-07-19 Outpatient STLMLC STLMLC [id number] Common 00:00:00 00:00:00 [facility] 2020-07-15 2020-07-15 Outpatient STLMLC STLMLC [id number] Common 00:00:00 00:00:00 [facility] 2020-06-14 2020-06-14 Outpatient STLMLC STLMLC [id number] Common 00:00:00 00:00:00 [facility] 2020-06-05 2020-06-05 Outpatient STLMLC STLMLC [id number] Common 00:00:00 00:00:00 [facility] 2020-04-23 2020-04-23 Outpatient STLMLC STLMLC [id number] Common 00:00:00 00:00:00 [facility] 2020-04-22 2020-04-22 Outpatient STLMLC STLMLC [id number] Common 00:00:00 00:00:00 [facility] 2020-04-17 2020-04-17 Outpatient STLMLC STLMLC [id number] Common 00:00:00 00:00:00 [facility] 2020-01-15 2020-01-15 [facility] [id number] Common 10:45:00 10:45:[address] [facility] 2019-10-16 2019-10-16 [facility] [id number] Common 13:00:00 13:00:[address] [facility] 2019-07-17 2019-07-17 [facility] [id number] Common 13:45:00 13:45:[address] [facility] 2019-06-14 2019-06-14 Out[facility] [id number] Common 11:45:00 11:45:[address] [facility] 2019-06-07 2019-06-07 [facility] [id number] Common 11:57:00 11:57:[address] [facility] 2019-05-17 2019-05-17 [facility] [id number] Common 11:30:00 11:30:[address] [facility] 2019-04-24 2019-04-24 [facility] [id number] Common 14:52:00 14:52:[address] [facility] 2019-04-19 2019-04-19 Out[facility] [id number] Common 14:45:00 14:45:[address] [facility] 2019-04-06 2019-04-06 Out[facility] [id number] Common 08:35:00 08:35:[address] [facility] 2019-04-04 2019-04-04 [facility] [id number] Common 08:34:00 08:34:[address] [facility] 2019-03-08 2019-03-08 Out[facility] [id number] Common 10:57:00 10:57:[address] [facility] 2019-02-20 2019-02-20 [facility] [id number] Common 14:00:00 14:00:[address] [facility] Results Test Description Test Time Test Comments Results Result Comments Source COMP. METABOLIC PANEL (61931) 2022-10-31 15:25:34 Test Item Value Reference Range Interpretation Comme nts NA (test code = 7490681073) 136 mmol/L 135-145 K (test code = 5328172096) 4.7 mmol/L 3.5-5.0 CL (test code = 0216996631) 96 mmol/L 98-108 L CO2 TOTAL (test code = 3289436923) 31 mmol/L 23-31 AGAP (test code = 1853665406) 9 2-16 BUN (test code = 5600758328) 26 mg/dL 7-23 H GLUCOSE (test code = 6425081963) 190 mg/dL 70-110 H CREATININE (test code = 2.56 mg/dL 0.60-1.25 H 2969610267) TOTAL BILI (test code = 0.9 mg/dL 0.1-1.2 8630621337) CALCIUM (test code = 1717028830) 9.6 mg/dL 8.6-10.6 T PROTEIN (test code = 9075281484) 6.4 g/dL 6.3-8.2 ALBUMIN (test code = 3036255704) 3.5 g/dL 3.5-5.0 ALK PHOS (test code = 8846948969) 307 U/L 34-122 H ALTv (test code = 1742-6) 27 U/L 5-50 AST(SGOT) (test code = 1341316245) 28 U/L 13-40 eGFR (test code = 7829250683) 24.5 mL/min/1.73m2 MALIK (test code = MALIK) [...] tests). Lab Interpretation (test code = Abnormal 03465-6) [facility]25[facility]34 Test Item Value Reference Range Interpretation Comments LIPASE (test code = 0542333714) 212 U/L 0-220 Lab Interpretation (test code = Normal 51443-7) [facility] [id number] 15:12:12 Test Item Value Reference Range Interpretation [...] RDW-SD (test code = 45.4 fL 38.5-51.6 25273-7) RDW-CV (test code = 14.3 % 12.1-15.4 788-0) PLT (test code = 191 See_Comment [Automated 777-3) message] The sy stem which generated this result transmitted reference range : 150 - 328 10*3/ ?L. The reference r samantha was not used to interpret this result as normal/abnormal . MPV (test code = 10.1 fL 9.8-13.0 20496-2) NRBC/100 WBC (test 0.0 See_Comment [Automat ed code = 9190902650) message] The system which generated this result transmitted reference range : 0.0 - 10.0 /100 WBCs. The refer ence range was not u sed to interpret th is result as normal/abnormal . NRBC x10^3 (test code See_Comment [Auto mated = 1948665395) message] The s ystem which generated this result transmitted reference range : 10*3/?L. The reference range was not used to interpret this result as normal/abnormal . GRAN MAT (NEUT) % 62.8 % (test code = 770-8) IMM GRAN % (test code 0.60 % = 9979173977) LYMPH % (test code = 23.2 % 736-9) MONO % (test code = 10.9 % 5905-5) EOS % (test code = 2.3 % 713-8) BASO % (test code = 0.2 % 706-2) GRAN MAT x10^3(ANC) 2.98 10*3/uL 1.99-6.95 (test code = 4453917715) IMM GRAN x10^3 (test 0.03 10*3/uL 0.00-0.06 code = 7131977136) LYMPH x10^3 (test code 1.10 10*3/uL 1.09-3.23 = 731-0) MONO x10^3 (test code 0.52 10*3/uL 0.36-1.02 = 742-7) EOS x10^3 (test code = 0.11 10*3/uL 0.06-0.53 711-2) BASO x10^3 (test code 0.01-0.09 = 704-7) Lab Interpretation Abnormal (test code = 16578-9) [facility] GLUCOSE (AUTOMATED)2022-10-15 16:18:07 Test Item Value Reference Range Interpretation Comments POCT GLU (test code = 7686639871) 131 mg/dL 70-110 H Lab Interpretation (test code = Abnormal 04380-7) [facility] GLUCOSE (AUTOMATED)2022-10-15 12:27:02 Test Item Value Reference Range Interpretation Comments POCT GLU (test code = 3818820351) 220 mg/dL 70-110 H Lab Interpretation (test code = Abnormal 17186-3) [facility] RBC (in units), 2 Units 2022-10-15 05:15:09 Test Item Value Reference Range Interpretation Comments Cross Match Result Compatible (test code = 4409) ISBT Blood Type Code 6200 (test code = 962760) Unit Blood Type (test A Pos code = 4410) Unit Number (test [id number] code = 4411) Blood Expiration Date & Time (test code = 409086) Status Information Released (test code = 4412) Product Red Blood Cells Identification (test code = 4413) Product Code (test Q8102D31 Performed at [facility] code = 4414) Laboratory Services - [facility] Blood [address] [place] [id number] Free: [phone] A No. [id number] [facility] GLUCOSE (AUTOMATED)2022-10-15 01:55:15 Test Item Value Reference Range Interpretation Comments POCT GLU (test code = 4362534495) 152 mg/dL 70-110 H Lab Interpretation (test code = Abnormal 04175-5) [facility]ody (HBsAb)2022-10-15 00:05:17 Test Item Value Reference Range Interpretation Comments HBsAB (test code = Negative 1181404126) HBsAb 3.80 mIU/mL Semi-Quantitative (test code = 7388699420) MALIK (test code = Interpretation: MALIK) ?Hepatitis B Surface Antibody ? Negative - Patient is considered to be not immune to infection with HBV. ? ? Positive - Anti-HBs detected at greater than or equal to 12 mIU/mL. ?Patient is considered to be immune to infection with HBV. ? [facility] B Surface Antigen (HBsAg)2022-10-14 23:47:58 Test Item Value Reference Range Interpretation Comments HBsAg Semi-Quantitative (test code = 0.09 Negative 5195-3) [facility] GLUCOSE (AUTOMATED)2022-10-14 21:41:48 Test Item Value Reference Range Interpretation Comments POCT GLU (test code = 5104262553) 118 mg/dL 70-110 H Lab Interpretation (test code = Abnormal 34856-2) [facility] GLUCOSE (AUTOMATED)2022-10-14 16:47:29 Test Item Value Reference Range Interpretation Comments POCT GLU (test code = 4340291041) 132 mg/dL 70-110 H Lab Interpretation (test code = Abnormal 54927-4) [facility] CULTURE [id number] 14:16:04 Test Item Value Reference Range Interpretation Comments Blood Culture-Aerobic Culture positive. No growth AA P revious (test code = 78971-5) See Blood Culture p reliminary Workup for verified result additional was Culture In information. Progress on 10/10/2022 at 19 01 CDTPrevious preliminary verified result was No growth a t 24 hours on 10/11/2022 at 16 01 CDT Blood No organisms No growth Previous Culture-Anaerobic isolated preliminar y (test code = 92289-9) verifi ed result was Culture In Progress on 10/10/2022 at 19 01 CDTPrevious preliminary verified result was No growth a t 24 hours on 10/11/2022 at 16 01 CDTPrevious preliminary verified result was Culture In Progress on 10/12/2022 at 11 51 CDT Lab Interpretation Abnormal (test code = 75938-4) [facility] CULTURE [id number] 14:16:04 Test Item Value Reference Range Interpretation Comments Blood Culture-Aerobic Culture positive. No growth AA P revious (test code = 96317-3) See Blood Culture p reliminary Workup for verified result additional was Culture In information. Progress on 10/10/2022 at 19 01 CDTPrevious preliminary verified result was No growth a t 24 hours on 10/11/2022 at 16 01 CDT Blood No organisms No growth Previous Culture-Anaerobic isolated preliminar y (test code = 79134-6) verifi ed result was Culture In Progress on 10/10/2022 at 19 01 CDTPrevious preliminary verified result was No growth a t 24 hours on 10/11/2022 at 16 01 CDT Lab Interpretation Abnormal (test code = 35567-2) [facility] GLUCOSE (AUTOMATED)2022-10-14 12:54:35 Test Item Value Reference Range Interpretation Comments POCT GLU (test code = 4003888245) 221 mg/dL 70-110 H Lab Interpretation (test code = Abnormal 33048-7) [facility] GLUCOSE (AUTOMATED)2022-10-14 03:16:56 Test Item Value Reference Range Interpretation Comments POCT GLU (test code = 3181111005) 129 mg/dL 70-110 H Lab Interpretation (test code = Abnormal 41323-8) [facility] GLUCOSE (AUTOMATED)2022-10-13 21:44:17 Test Item Value Reference Range Interpretation Comments POCT GLU (test code = 1079845678) 95 mg/dL 70-110 Lab Interpretation (test code = Normal 75718-5) [facility] GLUCOSE (AUTOMATED)2022-10-13 16:27:34 Test Item Value Reference Range Interpretation Comments POCT GLU (test code = 9582687851) 167 mg/dL 70-110 H Lab Interpretation (test code = Abnormal 81724-7) [facility] GLUCOSE (AUTOMATED)2022-10-13 12:36:25 Test Item Value Reference Range Interpretation Comments POCT GLU (test code = 7888253938) 169 mg/dL 70-110 H Lab Interpretation (test code = Abnormal 13866-9) [facility] GLUCOSE (AUTOMATED)2022-10-13 01:25:21 Test Item Value Reference Range Interpretation Comments POCT GLU (test code = 5935371149) 142 mg/dL 70-110 H Lab Interpretation (test code = Abnormal 37226-2) [facility] PATHOGENS DNA [id number] 21:42:17 Test Item Value Reference Range Interpretation Comments Coagulase Negative Positive Negative, See A Staphylococcus (test Comment/Narrative code = 88138-7) MALIK (test code = MALIK) Coagulase negative [...] contact the Antimicrobial Stewardship Program with questions.Pager: ?[phone] Testing included eleven identification and three resistance marker targets. Lab Interpretation Abnormal (test code = 78313-2) [facility] GLUCOSE (AUTOMATED)2022-10-12 21:24:15 Test Item Value Reference Range Interpretation Comments POCT GLU (test code = 0217574147) 124 mg/dL 70-110 H Lab Interpretation (test code = Abnormal 20766-6) [facility] P[facility] RBC (in units), 1 Units 2022-10-12 18:29:53 Test Item Value Reference Range Interpretation Comments Cross Match Result Compatible (test code = 4409) ISBT Blood Type Code 6200 (test code = 340114) Unit Blood Type (test A Pos code = 4410) Unit Number (test [id number] code = 4411) Blood Expiration Date [id number] & Time (test code = 188139) Status Information Issued (test code = 4412) Product Red Blood Cells Identification (test code = 4413) Product Code (test G2805M21 Performed at [facility] code = 4414) Laboratory Services - [facility] Blood [address] [place], [place] [id number] Free: [phone] A No. [id number] [facility] GLUCOSE (AUTOMATED)2022-10-12 16:49:16 Test Item Value Reference Range Interpretation Comments POCT GLU (test code = 1760125303) 183 mg/dL 70-110 H Lab Interpretation (test code = Abnormal 02596-2) [facility] [id number] 14:35:54 Test Item Value Reference Range Interpretation Comments NT-proBNP (test code = 41412 pg/mL <=450 H 0448790133) MALIK (test code = MALIK) Biotin has been reported to cause a negative bias, interpret results relative to patient's use of biotin. Lab Interpretation (test Abnormal code = 08131-2) [facility] [id number] 14:31:03 Test Item Value Reference Range Interpretation Comments TROPONIN I (test code = 0.296 ng/mL <=0.034 H 1951730477) MALIK (test code = MALIK) Reference (Normal) [...] biotin. Lab Interpretation Abnormal (test code = 25947-4) [facility] HospitalLIPID PANEL (54947)(TOTAL CHOLESTEROL, TRIGLYCERIDES, HDL)2022-10-12 14:05:04 Test Item Value Reference Range Interpretation Comments CHOL (test code = 9858944812) 61 mg/dL 120-200 L HDL (test code = 7637839819) 19 mg/dL >=40 L HDLC RATIO (test code = 9098872501) 3.2 <=5.0 TRIG (test code = 9211063906) 82 mg/dL 30-170 LDL CHOL (test code = 33310-9) 26 mg/dL <=160 VLDL (test code = 1044251615) 16 mg/dL 5-60 Lab Interpretation (test code = Abnormal 73631-5) [facility])2022-10-12 12:46:09 Test Item Value Reference Range Interpretation Comments POCT GLU (test code = 2535488212) 139 mg/dL 70-110 H Lab Interpretation (test code = Abnormal 54635-9) [facility]OLIC PANEL (NA, K, CL, CO2, GLUCOSE, BUN, CREATININE, CA)2022-10-12 11:04:31 Test Item Value Reference Range Interpretation Comments NA (test code = 136 mmol/L 135-145 3347479668) K (test code = 4.9 mmol/L 3.5-5.0 3509914260) CL (test code = 99 mmol/L 98-108 9430949145) CO2 TOTAL (test code = 27 mmol/L 23-31 4967727314) AGAP (test code = 10 2-16 2780427457) BUN (test code = 54 mg/dL 7-23 H 1373303295) GLUCOSE (test code = 136 mg/dL 70-110 H 0143893188) CREATININE (test code = 4.66 mg/dL 0.60-1.25 H 7278079112) CALCIUM (test code = 9.0 mg/dL 8.6-10.6 2073771538) eGFR (test code = 12.3 mL/min/1.73m2 2981505977) MALIK (test code = MALIK) Association of [...] tests). Lab Interpretation Abnormal (test code = 13458-5) [facility] Test Item Value Reference Range Interpretation Comments MAGNESIUM (test code = 5615608928) 1.9 mg/dL 1.7-2.4 Lab Interpretation (test code = Normal 74569-0) [facility] Test Item Value Reference Range Interpretation Comments PHOSPHORUS (test code = 1628401108) 3.8 mg/dL 2.5-5.0 Lab Interpretation (test code = Normal 74994-9) [facility] WITH [id number] 10:44:53 Test Item Value Reference Range Interpretation [...] RDW-SD (test code = 46.5 fL 38.5-51.6 06003-1) RDW-CV (test code = 14.5 % 12.1-15.4 788-0) PLT (test code = 129 See_Comment L [Automated 777-3) message] The sy stem which generated this result transmitted reference range : 150 - 328 10*3/ ?L. The reference r samantha was not used to interpret this result as normal/abnormal . MPV (test code = 9.7 fL 9.8-13.0 L 53318-6) NRBC/100 WBC (test 0.0 See_Comment [Automat ed code = 9918516982) message] The system which generated this result transmitted reference range : 0.0 - 10.0 /100 WBCs. The refer ence range was not u sed to interpret th is result as normal/abnormal . NRBC x10^3 (test code See_Comment [Auto mated = 4759589839) message] The s ystem which generated this result transmitted reference range : 10*3/?L. The reference range was not used to interpret this result as normal/abnormal . GRAN MAT (NEUT) % 70.2 % (test code = 770-8) IMM GRAN % (test code 0.40 % = 9944437927) LYMPH % (test code = 19.3 % 736-9) MONO % (test code = 7.4 % 5905-5) EOS % (test code = 2.3 % 713-8) BASO % (test code = 0.4 % 706-2) GRAN MAT x10^3(ANC) 3.61 10*3/uL 1.99-6.95 (test code = 6493883676) IMM GRAN x10^3 (test 0.00-0.06 code = 7514450436) LYMPH x10^3 (test code 0.99 10*3/uL 1.09-3.23 L = 731-0) MONO x10^3 (test code 0.38 10*3/uL 0.36-1.02 = 742-7) EOS x10^3 (test code = 0.12 10*3/uL 0.06-0.53 711-2) BASO x10^3 (test code 0.01-0.09 = 704-7) Lab Interpretation Abnormal (test code = 84885-9) [facility] GLUCOSE (AUTOMATED)2022-10-12 06:45:05 Test Item Value Reference Range Interpretation Comments POCT GLU (test code = 4280060708) 189 mg/dL 70-110 H Lab Interpretation (test code = Abnormal 03210-7) [facility] GLUCOSE (AUTOMATED)2022-10-12 01:24:37 Test Item Value Reference Range Interpretation Comments POCT GLU (test code = 2629539164) 145 mg/dL 70-110 H Lab Interpretation (test code = Abnormal 10529-0) [facility] GLUCOSE (AUTOMATED)2022-10-11 21:34:09 Test Item Value Reference Range Interpretation Comments POCT GLU (test code = 7438111614) 140 mg/dL 70-110 H Lab Interpretation (test code = Abnormal 92974-5) [facility] GLUCOSE (AUTOMATED)2022-10-11 17:09:13 Test Item Value Reference Range Interpretation Comments POCT GLU (test code = 8407790333) 174 mg/dL 70-110 H Lab Interpretation (test code = Abnormal 43152-0) [facility] GLUCOSE (AUTOMATED)2022-10-11 16:19:41 Test Item Value Reference Range Interpretation Comments POCT GLU (test code = 4428761070) 170 mg/dL 70-110 H Lab Interpretation (test code = Abnormal 97802-0) [facility] GLUCOSE (AUTOMATED)2022-10-11 14:32:59 Test Item Value Reference Range Interpretation Comments POCT GLU (test code = 4102209681) 151 mg/dL 70-110 H Lab Interpretation (test code = Abnormal 15263-9) [facility] GLUCOSE (AUTOMATED)2022-10-11 13:15:13 Test Item Value Reference Range Interpretation Comments POCT GLU (test code = 8671433801) 108 mg/dL 70-110 Lab Interpretation (test code = Normal 09454-5) [facility] GLUCOSE (AUTOMATED)2022-10-11 12:14:37 Test Item Value Reference Range Interpretation Comments POCT GLU (test code = 0194354865) 106 mg/dL 70-110 Lab Interpretation (test code = Normal 89525-2) [facility] GLUCOSE (AUTOMATED)2022-10-11 11:28:53 Test Item Value Reference Range Interpretation Comments POCT GLU (test code = 3551898024) 121 mg/dL 70-110 H Lab Interpretation (test code = Abnormal 14324-4) [facility] GLUCOSE (AUTOMATED)2022-10-11 09:43:44 Test Item Value Reference Range Interpretation Comments POCT GLU (test code = 3491375777) 129 mg/dL 70-110 H Lab Interpretation (test code = Abnormal 09458-4) [facility] GLUCOSE (AUTOMATED)2022-10-11 08:46:38 Test Item Value Reference Range Interpretation Comments POCT GLU (test code = 6083144778) 101 mg/dL 70-110 Lab Interpretation (test code = Normal 35286-9) [facility] GLUCOSE (AUTOMATED)2022-10-11 07:38:35 Test Item Value Reference Range Interpretation Comments POCT GLU (test code = 3941093342) 102 mg/dL 70-110 Lab Interpretation (test code = Normal 53714-2) [facility] GLUCOSE (AUTOMATED)2022-10-11 06:20:36 Test Item Value Reference Range Interpretation Comments POCT GLU (test code = 3353890749) 112 mg/dL 70-110 H Lab Interpretation (test code = Abnormal 62823-8) [facility] GLUCOSE (AUTOMATED)2022-10-11 05:53:46 Test Item Value Reference Range Interpretation Comments POCT GLU (test code = 5894158647) 118 mg/dL 70-110 H Lab Interpretation (test code = Abnormal 52358-8) [facility] GLUCOSE (AUTOMATED)2022-10-11 04:25:32 Test Item Value Reference Range Interpretation Comments POCT GLU (test code = 2612283069) 127 mg/dL 70-110 H Lab Interpretation (test code = Abnormal 36033-4) [facility] GLUCOSE (AUTOMATED)2022-10-11 03:35:04 Test Item Value Reference Range Interpretation Comments POCT GLU (test code = 9587900438) 132 mg/dL 70-110 H Lab Interpretation (test code = Abnormal 58585-1) [facility] GLUCOSE (AUTOMATED)2022-10-11 02:10:18 Test Item Value Reference Range Interpretation Comments POCT GLU (test code = 4381348167) 155 mg/dL 70-110 H Lab Interpretation (test code = Abnormal 62556-0) [facility]1C[facility]2022-10-11 01:39:22 Test Item Value Reference Range Interpretation Comments HGB A1C (test code = 7.2 % 4.0-5.7 H 4548-4) MALIK (test code = MALIK) Reference RangesNormal: <5.7%Prediabetes: 5.7 - 6.4%Diabetes: > 6.5% Lab Interpretation (test Abnormal code = 39182-2) [facility] GLUCOSE (AUTOMATED)2022-10-11 01:10:41 Test Item Value Reference Range Interpretation Comments POCT GLU (test code = 7549411068) 156 mg/dL 70-110 H Lab Interpretation (test code = Abnormal 16507-8) [facility] GLUCOSE (AUTOMATED)2022-10-10 23:31:02 Test Item Value Reference Range Interpretation Comments POCT GLU (test code = 0267232940) 144 mg/dL 70-110 H Lab Interpretation (test code = Abnormal 71170-1) [facility] GLUCOSE (AUTOMATED)2022-10-10 21:44:27 Test Item Value Reference Range Interpretation Comments POCT GLU (test code = 7998811864) 138 mg/dL 70-110 H Lab Interpretation (test code = Abnormal 31625-5) [facility] GLUCOSE (AUTOMATED)2022-10-10 21:27:07 Test Item Value Reference Range Interpretation Comments POCT GLU (test code = 3208420233) 150 mg/dL 70-110 H Lab Interpretation (test code = Abnormal 58175-9) [facility] + LACTIC [id number] 21:01:36 Test Item Value Reference Range Interpretation Comments PH (test code = 7.31 7.32-7.42 L 0857902537) PCO2 LORENA (test code = 55 See_Comment H [Auto mated 1498482598) message] The sy stem which generated this result transmitted reference range : 41 - 51 mmHg. The reference range was not used to interpret this result as normal/abnormal . PO2 LORENA (test code = 16 See_Comment L [Autom ated 5698929305) message] The sy stem which generated this result transmitted reference range : 25 - 40 mmHg. The reference range was not used to interpret this result as normal/abnormal . HCO3 LORENA (test code = 27 See_Comment [Auto mated 6831699222) message] The sy stem which generated this result transmitted reference range : 24 - 28 mEq/L. The reference range was not used to interpret this result as normal/abnormal . AC VBE(BEAKER) (test 0.6 mEq/L code = 6883638103) THB LORENA (test code = 8.2 g/dL 13.5-18.0 LL 9858778866) %O2HB LORENA (test code = 22.2 % 52.0-63.0 L 4572278360) %COHB LORENA (test code = 0.1 % 0.0-1.5 2370978623) %METHB LORENA (test code = 1.5 % 0.4-1.5 8047199780) VOL%O2 LORENA (test code = 2.6 % 6.0-12.0 L 5448861241) NA (test code = 132 mmol/L 135-145 L 8246775221) K+ (test code = 4.7 mmol/L 3.5-5.0 3672309290) AC CA IONZ (test code = 5.10 mg/dL 4.50-5.30 7693728107) GLUCOSE (test code = 153 mg/dL 70-110 H 3350590335) LACTIC ACID (test code 1.54 mmol/L 0.50-2.20 = 5715427560) Lab Interpretation Abnormal (test code = 23983-1) [facility]-10 20:33:33 Test Item Value Reference Range Interpretation Comments POCT GLU (test code = 4753533352) 137 mg/dL 70-110 H Lab Interpretation (test code = Abnormal 96747-0) [facility] [id number] 20:24:02 Test Item Value Reference Range Interpretation Comments NT-proBNP (test code = 21687 pg/mL <=450 H 8697185376) MALIK (test code = MALIK) Biotin has been reported to cause a negative bias, interpret results relative to patient's use of biotin. Lab Interpretation (test Abnormal code = 78558-5) [facility] (67819)2022-10-10 20:18:35 Test Item Value Reference Range Interpretation Comments NA (test code = 136 mmol/L 135-145 2745268703) K (test code = 4.8 mmol/L 3.5-5.0 8485512209) CL (test code = 94 mmol/L 98-108 L 8258757204) CO2 TOTAL (test code = 33 mmol/L 23-31 H 4684999129) AGAP (test code = 9 2-16 8712211596) BUN (test code = 34 mg/dL 7-23 H 1707249462) GLUCOSE (test code = 62 mg/dL 70-110 L 6971228393) CREATININE (test code = 3.14 mg/dL 0.60-1.25 H 3730594311) TOTAL BILI (test code = 0.9 mg/dL 0.1-1.5 7295557112) CALCIUM (test code = 9.4 mg/dL 8.6-10.6 7867393027) T PROTEIN (test code = 6.6 g/dL 6.3-8.2 7050146432) ALBUMIN (test code = 3.6 g/dL 3.5-5.0 4363060270) ALK PHOS (test code = 334 U/L 34-122 H 6514409765) ALTv (test code = 38 U/L 5-50 2-6) AST(SGOT) (test code = 38 U/L 13-40 5979531763) eGFR (test code = 19.3 mL/min/1.73m2 3334343067) MALIK (test code = MALIK) Association of [...] tests). Lab Interpretation Abnormal (test code = 60298-8) [facility] 19:48:15 Test Item Value Reference Range Interpretation Comments POCT GLU (test code = 9969914863) 50 mg/dL 70-110 LL Lab Interpretation (test code = Abnormal 87021-3) [facility] [id number] 19:44:14 Test Item Value Reference Range Interpretation Comments TROPONIN I (test code = 0.060 ng/mL <=0.034 H 4626770210) MALIK (test code = MALIK) Reference (Normal) [...] biotin. Lab Interpretation Abnormal (test code = 98865-7) [facility] [id number] 19:23:50 Test Item Value Reference Range Interpretation Comments WBC (test code = 7.51 See_Comment [Automated 3982-2) message] The sy stem which generated this result transmitted reference range : 4.20 - 10.70 10*3/?L. The reference range was not used to interpret this result as normal/abnormal . RBC (test code = 2.71 See_Comment L [Automated 579-8) message] The sy stem which generated this [...] RDW-SD (test code = 46.5 fL 38.5-51.6 94929-1) RDW-CV (test code = 14.4 % 12.1-15.4 788-0) PLT (test code = 131 See_Comment L [Automated 777-3) message] The sy stem which generated this result transmitted reference range : 150 - 328 10*3/ ?L. The reference r samantha was not used to interpret this result as normal/abnormal . MPV (test code = 9.2 fL 9.8-13.0 L 69949-9) NRBC/100 WBC (test 0.0 See_Comment [Automat ed code = 9698612637) message] The system which generated this result transmitted reference range : 0.0 - 10.0 /100 WBCs. The refer ence range was not u sed to interpret th is result as normal/abnormal . NRBC x10^3 (test code See_Comment [Auto mated = 5410549929) message] The s ystem which generated this result transmitted reference range : 10*3/?L. The reference range was not used to interpret this result as normal/abnormal . GRAN MAT (NEUT) % 80.2 % (test code = 770-8) IMM GRAN % (test code 0.50 % = 2086235584) LYMPH % (test code = 9.6 % 736-9) MONO % (test code = 8.8 % 5905-5) EOS % (test code = 0.4 % 713-8) BASO % (test code = 0.5 % 706-2) GRAN MAT x10^3(ANC) 6.02 10*3/uL 1.99-6.95 (test code = 0515336938) IMM GRAN x10^3 (test 0.04 10*3/uL 0.00-0.06 code = 9243164315) LYMPH x10^3 (test code 0.72 10*3/uL 1.09-3.23 L = 731-0) MONO x10^3 (test code 0.66 10*3/uL 0.36-1.02 = 742-7) EOS x10^3 (test code = 0.03 10*3/uL 0.06-0.53 L 711-2) BASO x10^3 (test code 0.04 10*3/uL 0.01-0.09 = 704-7) Lab Interpretation Abnormal (test code = 15522-3) [facility] 18:59:49 Test Item Value Reference Range Interpretation Comments POCT GLU (test code = 9783992127) 80 mg/dL 70-110 Lab Interpretation (test code = Normal 52533-0) [facility] [id number] 18:35:00 Test Item Value Reference Range Interpretation Comments Antibody Scrn (test Negative (01/02/22 1:35 code = Antibody Scrn) PM) [facility] [id number] 18:35:00 Test Item Value Reference Range Interpretation Comments ABO/Rh (test code = ABO/Rh) AB POS [facility] [id number] 18:35:00 Test Item Value Reference Range Interpretation Comments Antibody Scrn (test Negative (01/02/22 1:35 code = Antibody Scrn) PM) [facility] [id number] 18:35:00 Test Item Value Reference Range Interpretation Comments ABO/Rh (test code = ABO/Rh) AB POS [facility] [employer] [id number] 18:35:00 Test Item Value Reference Range Interpretation Comments Antibody Scrn (test Negative (01/02/22 1:35 code = Antibody Scrn) PM) [facility] [employer] [id number] 18:35:00 Test Item Value Reference Range Interpretation Comments ABO/Rh (test code = ABO/Rh) AB POS [facility] [employer] [id number] 18:35:00 Test Item Value Reference Range Interpretation Comments Antibody Scrn (test Negative (01/02/22 1:35 code = Antibody Scrn) PM) [facility] [employer] [id number] 18:35:00 Test Item Value Reference Range Interpretation Comments ABO/Rh (test code = ABO/Rh) AB [facility] [id number] 18:35:00 Test Item Value Reference Range Interpretation Comments Antibody Scrn (test Negative (01/02/22 1:35 code = Antibody Scrn) PM) [facility] [employer] [id number] 18:35:00 Test Item Value Reference Range Interpretation Comments ABO/Rh (test code = ABO/Rh) AB POS [facility] [id number] 18:35:00 Test Item Value Reference Range Interpretation Comments Antibody Scrn (test Negative (01/02/22 1:35 code = Antibody Scrn) PM) [facility] [id number] 18:35:00 Test Item Value Reference Range Interpretation Comments ABO/Rh (test code = ABO/Rh) AB POS [facility] [employer] [id number] 18:35:00 Test Item Value Reference Range Interpretation Comments Antibody Scrn (test Negative (01/02/22 1:35 code = Antibody Scrn) PM) [facility] [id number] 18:35:00 Test Item Value Reference Range Interpretation Comments ABO/Rh (test code = ABO/Rh) AB POS [facility] [employer] [id number] 18:35:00 Test Item Value Reference Range Interpretation Comments Antibody Scrn (test Negative (01/02/22 1:35 code = Antibody Scrn) PM) [facility] [id number] 18:35:00 Test Item Value Reference Range Interpretation Comments ABO/Rh (test code = ABO/Rh) AB POS [facility] [employer] [id number] 18:35:00 Test Item Value Reference Range Interpretation Comments Antibody Scrn (test Negative (01/02/22 1:35 code = Antibody Scrn) PM) [facility] [employer] [id number] 18:35:00 Test Item Value Reference Range Interpretation Comments ABO/Rh (test code = ABO/Rh) AB POS [facility] [employer] [id number] 18:35:00 Test Item Value Reference Range Interpretation Comments Antibody Scrn (test Negative (01/02/22 1:35 code = Antibody Scrn) PM) [facility] [id number] 18:35:00 Test Item Value Reference Range Interpretation Comments ABO/Rh (test code = ABO/Rh) AB POS [employer] [id number] 18:35:00 Test Item Value Reference Range Interpretation Comments Antibody Scrn (test Negative (01/02/22 1:35 code = Antibody Scrn) PM) [employer] [id number] 18:35:00 Test Item Value Reference Range Interpretation Comments ABO/Rh (test code = ABO/Rh) AB POS [employer] [id number] 18:35:00 Test Item Value Reference Range Interpretation Comments Antibody Scrn (test Negative (01/02/22 1:35 code = Antibody Scrn) PM) [employer] [id number] 18:35:00 Test Item Value Reference Range Interpretation Comments ABO/Rh (test code = ABO/Rh) AB POS [employer] [id number] 18:35:00 Test Item Value Reference Range Interpretation Comments Antibody Scrn (test Negative (01/02/22 1:35 code = Antibody Scrn) PM) [employer] [id number] 18:35:00 Test Item Value Reference Range Interpretation Comments ABO/Rh (test code = ABO/Rh) AB POS [employer] [id number] 18:13:00 Test Item Value Reference Range Interpretation Comments HS Troponin I (test code = HS Troponin 156 I) [employer] [id number] 18:13:00 Test Item Value Reference Range Interpretation Comments Glucose Lvl (test code = Glucose Lvl) 237 70-99 [employer] [id number] 18:13:00 Test Item Value Reference Range Interpretation Comments BUN (test code = BUN) 46 7-22 [facility]2022-08-05 18:13:00 Test Item Value Reference Range Interpretation Comments Creatinine Lvl (test code = Creatinine 5.92 0.50-1.40 Lvl) [facility]2022-08-05 18:13:00 Test Item Value Reference Range Interpretation Comments Sodium Lvl (test code = Sodium Lvl) 134 135-145 [facility]2022-08-05 18:13:00 Test Item Value Reference Range Interpretation Comments Potassium Lvl (test code = Potassium 4.4 3.5-5.1 Lvl) [facility] [id number] 18:13:00 Test Item Value Reference Range Interpretation Comments Chloride Lvl (test code = Chloride Lvl) 98 95-109 [facility] [id number] 18:13:00 Test Item Value Reference Range Interpretation Comments HS Troponin I (test code = HS Troponin 156 I) [facility]2022-08-05 18:13:00 Test Item Value Reference Range Interpretation Comments Glucose Lvl (test code = Glucose Lvl) 237 70-99 [facility]2022-08-05 18:13:00 Test Item Value Reference Range Interpretation Comments BUN (test code = BUN) 46 7-22 [facility]2022-08-05 18:13:00 Test Item Value Reference Range Interpretation Comments Creatinine Lvl (test code = Creatinine 5.92 0.50-1.40 Lvl) [facility]2022-08-05 18:13:00 Test Item Value Reference Range Interpretation Comments Sodium Lvl (test code = Sodium Lvl) 134 135-145 [facility]2022-08-05 18:13:00 Test Item Value Reference Range Interpretation Comments Potassium Lvl (test code = Potassium 4.4 3.5-5.1 Lvl) [facility]2022-08-05 18:13:00 Test Item Value Reference Range Interpretation Comments Chloride Lvl (test code = Chloride Lvl) 98 95-109 [facility]2022-08-05 18:13:00 Test Item Value Reference Range Interpretation Comments CO2 (test code = CO2) 29 - [facility]2022-08-05 18:13:00 Test Item Value Reference Range Interpretation Comments Calcium Lvl (test code = Calcium Lvl) 9.2 8.5-10.5 [facility]2022-08-05 18:13:00 Test Item Value Reference Range Interpretation Comments Total Protein (test code = Total 6.6 6.4-8.4 Protein) [facility]2022-08-05 18:13:00 Test Item Value Reference Range Interpretation Comments CO2 (test code = CO2) 29 - [facility] [id number] 18:13:00 Test Item Value Reference Range Interpretation Comments Albumin Lvl (test code = Albumin Lvl) 3.1 3.5-5.0 [address]08-05 18:13:00 Test Item Value Reference Range Interpretation Comments ALT (test code = ALT) 36 See_Comment [Auto mated message] The system which ge nerated this result transmit swathi reference range : <=65. The reference range was not used to interpr et this result as deny l/abnormal. [facility] [id number] 18:13:00 Test Item Value Reference Range Interpretation Comments AST (test code = AST) 28 See_Comment [Auto mated message] The system which ge nerated this result transmit swathi reference range : <=37. The reference range was not used to interpr et this result as deny l/abnormal. [address]08-05 18:13:00 Test Item Value Reference Range Interpretation Comments Alk Phos (test code = Alk Phos) 231 39-136 [facility] [id number] 18:13:00 Test Item Value Reference Range Interpretation Comments Bili Total (test code = Bili Total) 1.0 0.2-1.3 [address]08-05 18:13:00 Test Item Value Reference Range Interpretation Comments AGAP (test code = AGAP) 11.4 10.0-20.0 [address]08-05 18:13:00 Test Item Value Reference Range Interpretation Comments B/C Ratio (test code = B/C Ratio) 8 1 6-25 [facility] [id number] 18:13:00 Test Item Value Reference Range Interpretation Comments Globulin (test code = Globulin) 3.5 2.7-4.2 [facility] [id number] 18:13:00 Test Item Value Reference Range Interpretation Comments A/G Ratio (test code = A/G Ratio) 0.9 1 0.7-1.6 [address]08-05 18:13:00 Test Item Value Reference Range Interpretation Comments eGFR (test code = eGFR) 9 [facility] [id number] 18:13:00 Test Item Value Reference Range Interpretation Comments Calcium Lvl (test code = Calcium Lvl) 9.2 8.5-10.5 [facility] CenterNnlnmhfLQCESXHHIQ8937-70-92 18:13:00 Test Item Value Reference Range Interpretation Comments WBC (test code = WBC) 4.8 3.7-10.4 [facility] SurgeryAkkeaksSYPJPWNWGQ4594-98-04 18:13:00 Test Item Value Reference Range Interpretation Comments RBC (test code = RBC) 1.93 4.70-6.10 [facility]VgkldpgEADKVQPHFW9340-35-21 18:13:00 Test Item Value Reference Range Interpretation Comments Hgb (test code = Hgb) 7.2 14.0-18.0 [facility] GreenvilleUhyevctFVZFTXZLPB4951-63-91 18:13:00 Test Item Value Reference Range Interpretation Comments Hct (test code = Hct) 21.2 42.0-54.0 [facility] GreenvilleQlolauyWFTIZRRHSM6836-33-90 18:13:00 Test Item Value Reference Range Interpretation Comments MCV (test code = MCV) 110.1 80.0-94.0 [facility] GreenvilleMdqbwmfBGDIKABDRH3208-28-19 18:13:00 Test Item Value Reference Range Interpretation Comments MCH (test code = MCH) 37.1 pg 27.0-31.0 [facility] CenterFwmsyoqGSTJHAIEKP1229-52-97 18:13:00 Test Item Value Reference Range Interpretation Comments MCHC (test code = MCHC) 33.7 32.0-36.0 [facility] SurgeryLjfreimMAVALICJEW1295-39-08 18:13:00 Test Item Value Reference Range Interpretation Comments RDW (test code = RDW) 25.8 11.5-14.5 [facility] CenterFwxpeliWTTQPHGRAN8971-15-50 18:13:00 Test Item Value Reference Range Interpretation Comments Platelet (test code = Platelet) 216 133-450 [facility] CenterSnedbxcPQLBLSEZZO0011-07-98 18:13:00 Test Item Value Reference Range Interpretation Comments MPV (test code = MPV) 8.2 7.4-10.4 [facility]2022-08-05 18:13:00 Test Item Value Reference Range Interpretation Comments Total Protein (test code = Total 6.6 6.4-8.4 Protein) [facility]villePnlqqkuMPJTFYQUZK8535-88-67 18:13:00 Test Item Value Reference Range Interpretation Comments PT (test code = PT) 16.9 s 12.0-14.7 [facility] GreenvilleNayelkyMQJYBNXJQT3028-76-54 18:13:00 Test Item Value Reference Range Interpretation Comments INR (test code = INR) 1.39 1 0.85-1.17 [place]6562-08-05 18:13:00 Test Item Value Reference Range Interpretation Comments PTT (test code = PTT) 35.0 s 22.9-35.8 [place] 796562-08-05 18:13:00 Test Item Value Reference Range Interpretation Comments Plt Morph (test code = Normal (01/02/22 1:13 PM) Plt Morph) [facility] GreenvilleWkbdewjVKTBTDMRWC7969-33-78 18:13:00 Test Item Value Reference Range Interpretation Comments Segs (test code = Segs) 76.4 45.0-75.0 [place] 796562-08-05 18:13:00 Test Item Value Reference Range Interpretation Comments Lymphocytes (test code = Lymphocytes) 14.6 20.0-40.0 [place] 796562-08-05 18:13:00 Test Item Value Reference Range Interpretation Comments Monocytes (test code = Monocytes) 7.5 2.0-12.0 [facility] GreenvilleXtmmjujGQKHWCPRRD2991-83-60 18:13:00 Test Item Value Reference Range Interpretation Comments Eosinophils (test code = 0.6 See_Comment [A utomated message] The Eosinophils) system which ge nerated this result tra nsmitted reference range : <=4.0. The reference r samantha was not used to int erpret this result as normal/abnormal . [facility] GreenvilleDihcifoCOEOAYRTML0822-62-33 18:13:00 Test Item Value Reference Range Interpretation Comments Basophils (test code = 0.9 See_Comment [Aut omated message] The Basophils) system which ge nerated this result tra nsmitted reference range : <=1.0. The reference r samantha was not used to int erpret this result as normal/abnormal . [facility] GreenvilleLdrtontQGYRNZSOCT2238-30-17 18:13:00 Test Item Value Reference Range Interpretation Comments Neutrophils # (test code = Neutrophils 3.7 1.5-8.1 #) [facility]2022-08-05 18:13:00 Test Item Value Reference Range Interpretation Comments Albumin Lvl (test code = Albumin Lvl) 3.1 3.5-5.0 [place] 796562-08-05 18:13:00 Test Item Value Reference Range Interpretation Comments Lymphocytes # (test code = Lymphocytes 0.7 1.0-5.5 #) [place] [address]-08-05 18:13:00 Test Item Value Reference Range Interpretation Comments Monocytes # (test code 0.4 See_Comment [Aut omated message] The = Monocytes #) system which generated this result tra nsmitted reference range : <=0.8. The reference r samantha was not used to int erpret this result as normal/abnormal . [place] [address]-08-05 18:13:00 Test Item Value Reference Range Interpretation Comments Anisocyte (test code = 2+ *ABN*(01/02/22 1:13 Anisocyte) PM) [address]08-05 18:13:00 Test Item Value Reference Range Interpretation Comments Macrocyte (test code = 2+ *ABN*(01/02/22 1:13 Macrocyte) PM) [place] [address]-08-05 18:13:00 Test Item Value Reference Range Interpretation Comments ALT (test code = ALT) 36 See_Comment [Auto mated message] The system which ge nerated this result transmit swathi reference range : <=65. The reference range was not used to interpr et this result as deny l/abnormal. [place] [address]-08-05 18:13:00 Test Item Value Reference Range Interpretation Comments AST (test code = AST) 28 See_Comment [Auto mated message] The system which ge nerated this result transmit swathi reference range : <=37. The reference range was not used to interpr et this result as deny l/abnormal. [place] 509392-08-05 18:13:00 Test Item Value Reference Range Interpretation Comments Alk Phos (test code = Alk Phos) 231 39-136 [place] [address]-08-05 18:13:00 Test Item Value Reference Range Interpretation Comments Bili Total (test code = Bili Total) 1.0 0.2-1.3 [place] [address]-08-05 18:13:00 Test Item Value Reference Range Interpretation Comments AGAP (test code = AGAP) 11.4 10.0-20.0 [place] [address]-08-05 18:13:00 Test Item Value Reference Range Interpretation Comments B/C Ratio (test code = B/C Ratio) 8 1 6-25 [place] [address]-08-05 18:13:00 Test Item Value Reference Range Interpretation Comments Globulin (test code = Globulin) 3.5 2.7-4.2 [place] [address]-08-05 18:13:00 Test Item Value Reference Range Interpretation Comments A/G Ratio (test code = A/G Ratio) 0.9 1 0.7-1.6 [place] [address]-08-05 18:13:00 Test Item Value Reference Range Interpretation Comments eGFR (test code = eGFR) 9 [place] 796562-08-05 18:13:00 Test Item Value Reference Range Interpretation Comments WBC (test code = WBC) 4.8 3.7-10.4 [place] [address]-08-05 18:13:00 Test Item Value Reference Range Interpretation Comments RBC (test code = RBC) 1.93 4.70-6.10 [place] 796562-08-05 18:13:00 Test Item Value Reference Range Interpretation Comments Hgb (test code = Hgb) 7.2 14.0-18.0 [place] [address]-08-05 18:13:00 Test Item Value Reference Range Interpretation Comments Hct (test code = Hct) 21.2 42.0-54.0 [place] [address]-08-05 18:13:00 Test Item Value Reference Range Interpretation Comments MCV (test code = MCV) 110.1 80.0-94.0 [place] [address]-08-05 18:13:00 Test Item Value Reference Range Interpretation Comments MCH (test code = MCH) 37.1 pg 27.0-31.0 [place] [address]-08-05 18:13:00 Test Item Value Reference Range Interpretation Comments MCHC (test code = MCHC) 33.7 32.0-36.0 [place] [address]-08-05 18:13:00 Test Item Value Reference Range Interpretation Comments RDW (test code = RDW) 25.8 11.5-14.5 [place] [address]-08-05 18:13:00 Test Item Value Reference Range Interpretation Comments Platelet (test code = Platelet) 216 133-450 [facility] GreenvilleLtwjtriHKOXAVDLAA4839-51-40 18:13:00 Test Item Value Reference Range Interpretation Comments MPV (test code = MPV) 8.2 7.4-10.4 [facility] GreenvilleGwumzdkOGAJZCBXAT3051-80-95 18:13:00 Test Item Value Reference Range Interpretation Comments PT (test code = PT) 16.9 s 12.0-14.7 [facility] GreenvilleFbkxwhhVSCTYAMJXA7165-14-29 18:13:00 Test Item Value Reference Range Interpretation Comments INR (test code = INR) 1.39 1 0.85-1.17 [facility] GreenvilleHsdbvweKBNQAMSWHA9885-48-17 18:13:00 Test Item Value Reference Range Interpretation Comments PTT (test code = PTT) 35.0 s 22.9-35.8 [facility] GreenvilleSikgdcqQLTOMHBNZQ4026-75-53 18:13:00 Test Item Value Reference Range Interpretation Comments Plt Morph (test code = Normal (01/02/22 1:13 PM) Plt Morph) [facility] GreenvilleYxuezqpBRUISVAQIO1353-13-90 18:13:00 Test Item Value Reference Range Interpretation Comments Segs (test code = Segs) 76.4 45.0-75.0 [facility] GreenvilleVfncwzsXBTEQIAQBE3781-58-91 18:13:00 Test Item Value Reference Range Interpretation Comments Lymphocytes (test code = Lymphocytes) 14.6 20.0-40.0 [facility] GreenvilleVomijdePECIXLXLRR9956-14-58 18:13:00 Test Item Value Reference Range Interpretation Comments Monocytes (test code = Monocytes) 7.5 2.0-12.0 [facility] GreenvilleYmupnchHIQGEBLRSF8112-56-52 18:13:00 Test Item Value Reference Range Interpretation Comments Eosinophils (test code = 0.6 See_Comment [A utomated message] The Eosinophils) system which ge nerated this result tra nsmitted reference range : <=4.0. The reference r samantha was not used to int erpret this result as normal/abnormal . [facility] GreenvilleAtwltniRHKKONYMTA7311-61-36 18:13:00 Test Item Value Reference Range Interpretation Comments Basophils (test code = 0.9 See_Comment [Aut omated message] The Basophils) system which ge nerated this result tra nsmitted reference range : <=1.0. The reference r samantha was not used to int erpret this result as normal/abnormal . [facility] GreenvilleAkuplqeCFMGWSMKDV4649-59-84 18:13:00 Test Item Value Reference Range Interpretation Comments Neutrophils # (test code = Neutrophils 3.7 1.5-8.1 #) [facility] GreenvilleDlpdluqUFMNZOUALM5966-12-49 18:13:00 Test Item Value Reference Range Interpretation Comments Lymphocytes # (test code = Lymphocytes 0.7 1.0-5.5 #) [facility] GreenvilleGybemwhKVQQOIRWWL8171-05-18 18:13:00 Test Item Value Reference Range Interpretation Comments Monocytes # (test code 0.4 See_Comment [Aut omated message] The = Monocytes #) system which generated this result tra nsmitted reference range : <=0.8. The reference r samantha was not used to int erpret this result as normal/abnormal . [facility] GreenvilleCjjiwpcDCHICTCGWF7490-34-56 18:13:00 Test Item Value Reference Range Interpretation Comments Anisocyte (test code = 2+ *ABN*(01/02/22 1:13 Anisocyte) PM) [facility] GreenvillePruwvehJMUOFCOEOM4915-81-79 18:13:00 Test Item Value Reference Range Interpretation Comments Macrocyte (test code = 2+ *ABN*(01/02/22 1:13 Macrocyte) PM) [facility] CenterCARDIAC IMTEEXR6084-23-81 18:13:00 Test Item Value Reference Range Interpretation Comments HS Troponin I (test code = HS Troponin 156 I) [facility]2022-08-05 18:13:00 Test Item Value Reference Range Interpretation Comments Glucose Lvl (test code = Glucose Lvl) 237 70-99 [facility]2022-08-05 18:13:00 Test Item Value Reference Range Interpretation Comments BUN (test code = BUN) 46 7-22 [facility]2022-08-05 18:13:00 Test Item Value Reference Range Interpretation Comments Creatinine Lvl (test code = Creatinine 5.92 0.50-1.40 Lvl) [facility]2022-08-05 18:13:00 Test Item Value Reference Range Interpretation Comments Sodium Lvl (test code = Sodium Lvl) 134 135-145 [facility]2022-08-05 18:13:00 Test Item Value Reference Range Interpretation Comments Potassium Lvl (test code = Potassium 4.4 3.5-5.1 Lvl) [place] 509392-08-05 18:13:00 Test Item Value Reference Range Interpretation Comments Chloride Lvl (test code = Chloride Lvl) 98 95-109 [place] [address]-08-05 18:13:00 Test Item Value Reference Range Interpretation Comments CO2 (test code = CO2) 29 24-32 [place] [address]-08-05 18:13:00 Test Item Value Reference Range Interpretation Comments Calcium Lvl (test code = Calcium Lvl) 9.2 8.5-10.5 [facility] YZLQE5714-83-08 18:13:00 Test Item Value Reference Range Interpretation Comments Total Protein (test code = Total 6.6 6.4-8.4 Protein) [address]08-05 18:13:00 Test Item Value Reference Range Interpretation Comments Albumin Lvl (test code = Albumin Lvl) 3.1 3.5-5.0 [facility] CenterPlay[facility] [id number] 18:13:00 Test Item Value Reference Range Interpretation Comments ALT (test code = ALT) 36 See_Comment [Auto mated message] The system which ge nerated this result transmit swathi reference range : <=65. The reference range was not used to interpr et this result as deny l/abnormal. [facility] WTWPG9476-14-78 18:13:00 Test Item Value Reference Range Interpretation Comments AST (test code = AST) 28 See_Comment [Auto mated message] The system which ge nerated this result transmit swathi reference range : <=37. The reference range was not used to interpr et this result as deny l/abnormal. [facility] DRUJW2504-53-94 18:13:00 Test Item Value Reference Range Interpretation Comments Alk Phos (test code = Alk Phos) 231 39-136 [facility] TWFUZ5636-11-43 18:13:00 Test Item Value Reference Range Interpretation Comments Bili Total (test code = Bili Total) 1.0 0.2-1.3 [facility] CenterPlay[facility] WUSQY5414-69-81 18:13:00 Test Item Value Reference Range Interpretation Comments AGAP (test code = AGAP) 11.4 10.0-20.0 [facility] [id number] 18:13:00 Test Item Value Reference Range Interpretation Comments B/C Ratio (test code = B/C Ratio) 8 1 6-25 [facility]2022-08-05 18:13:00 Test Item Value Reference Range Interpretation Comments Globulin (test code = Globulin) 3.5 2.7-4.2 [facility]2022-08-05 18:13:00 Test Item Value Reference Range Interpretation Comments A/G Ratio (test code = A/G Ratio) 0.9 1 0.7-1.6 [place] 509392-08-05 18:13:00 Test Item Value Reference Range Interpretation Comments eGFR (test code = eGFR) 9 [facility] GreenvilleXuwwahiVLOFDPVBTO5175-71-57 18:13:00 Test Item Value Reference Range Interpretation Comments WBC (test code = WBC) 4.8 3.7-10.4 [place] 796562-08-05 18:13:00 Test Item Value Reference Range Interpretation Comments RBC (test code = RBC) 1.93 4.70-6.10 [place] 796562-08-05 18:13:00 Test Item Value Reference Range Interpretation Comments Hgb (test code = Hgb) 7.2 14.0-18.0 [facility] GreenvilleMsoalzcHNCVYODRVB4418-12-69 18:13:00 Test Item Value Reference Range Interpretation Comments Hct (test code = Hct) 21.2 42.0-54.0 [facility] GreenvilleLutzogxYKASJDDUST2321-86-91 18:13:00 Test Item Value Reference Range Interpretation Comments MCV (test code = MCV) 110.1 80.0-94.0 [facility] GreenvilleXsxkgizQABCAJLLNI8334-74-67 18:13:00 Test Item Value Reference Range Interpretation Comments MCH (test code = MCH) 37.1 pg 27.0-31.0 [place] 796562-08-05 18:13:00 Test Item Value Reference Range Interpretation Comments MCHC (test code = MCHC) 33.7 32.0-36.0 [place] 796562-08-05 18:13:00 Test Item Value Reference Range Interpretation Comments RDW (test code = RDW) 25.8 11.5-14.5 [facility] GreenvilleTzgetghOFKTURBNHW0002-35-91 18:13:00 Test Item Value Reference Range Interpretation Comments Platelet (test code = Platelet) 216 133-450 [facility] GreenvilleDuoqsqiYJWCSBZZEL2672-15-29 18:13:00 Test Item Value Reference Range Interpretation Comments MPV (test code = MPV) 8.2 7.4-10.4 [place] [address]-08-05 18:13:00 Test Item Value Reference Range Interpretation Comments PT (test code = PT) 16.9 s 12.0-14.7 [place] [address]-08-05 18:13:00 Test Item Value Reference Range Interpretation Comments INR (test code = INR) 1.39 1 0.85-1.17 [place] [address]-08-05 18:13:00 Test Item Value Reference Range Interpretation Comments PTT (test code = PTT) 35.0 s 22.9-35.8 [place] [address]-08-05 18:13:00 Test Item Value Reference Range Interpretation Comments Plt Morph (test code = Normal (01/02/22 1:13 PM) Plt Morph) [place] 796562-08-05 18:13:00 Test Item Value Reference Range Interpretation Comments Segs (test code = Segs) 76.4 45.0-75.0 [place] [address]-08-05 18:13:00 Test Item Value Reference Range Interpretation Comments Lymphocytes (test code = Lymphocytes) 14.6 20.0-40.0 [place] [address]-08-05 18:13:00 Test Item Value Reference Range Interpretation Comments Monocytes (test code = Monocytes) 7.5 2.0-12.0 [place] [address]-08-05 18:13:00 Test Item Value Reference Range Interpretation Comments Eosinophils (test code = 0.6 See_Comment [A utomated message] The Eosinophils) system which ge nerated this result tra nsmitted reference range : <=4.0. The reference r samantha was not used to int erpret this result as normal/abnormal . [place] [address]-08-05 18:13:00 Test Item Value Reference Range Interpretation Comments Basophils (test code = 0.9 See_Comment [Aut omated message] The Basophils) system which ge nerated this result tra nsmitted reference range : <=1.0. The reference r samantha was not used to int erpret this result as normal/abnormal . [place] [address]-08-05 18:13:00 Test Item Value Reference Range Interpretation Comments Neutrophils # (test code = Neutrophils 3.7 1.5-8.1 #) [facility] GreenvilleYjryjdhINROOQTQYX4736-72-25 18:13:00 Test Item Value Reference Range Interpretation Comments Lymphocytes # (test code = Lymphocytes 0.7 1.0-5.5 #) [facility] GreenvilleLtnampxXDWOHQEVMA3685-81-03 18:13:00 Test Item Value Reference Range Interpretation Comments Monocytes # (test code 0.4 See_Comment [Aut omated message] The = Monocytes #) system which generated this result tra nsmitted reference range : <=0.8. The reference r samantha was not used to int erpret this result as normal/abnormal . [facility] GreenvilleOfvlvgeBTEQVYWVYW4758-99-67 18:13:00 Test Item Value Reference Range Interpretation Comments Anisocyte (test code = 2+ *ABN*(01/02/22 1:13 Anisocyte) PM) [facility] GreenvilleCqardxrAPRPVIGWKG1767-55-07 18:13:00 Test Item Value Reference Range Interpretation Comments Macrocyte (test code = 2+ *ABN*(01/02/22 1:13 Macrocyte) PM) [facility] CenterCARDI MUKQDKT8007-40-00 18:13:00 Test Item Value Reference Range Interpretation Comments HS Troponin I (test code = HS Troponin 156 I) [facility]2022-08-05 18:13:00 Test Item Value Reference Range Interpretation Comments Glucose Lvl (test code = Glucose Lvl) 237 70-99 [facility]2022-08-05 18:13:00 Test Item Value Reference Range Interpretation Comments BUN (test code = BUN) 46 7-22 [facility]2022-08-05 18:13:00 Test Item Value Reference Range Interpretation Comments Creatinine Lvl (test code = Creatinine 5.92 0.50-1.40 Lvl) [facility] [id number] 18:13:00 Test Item Value Reference Range Interpretation Comments Sodium Lvl (test code = Sodium Lvl) 134 135-145 [facility]2022-08-05 18:13:00 Test Item Value Reference Range Interpretation Comments Potassium Lvl (test code = Potassium 4.4 3.5-5.1 Lvl) [facility]2022-08-05 18:13:00 Test Item Value Reference Range Interpretation Comments Chloride Lvl (test code = Chloride Lvl) 98 95-109 [facility] HospitalFlynnL[facility] [place] [address]QIXGR7565-92-00 18:13:00 Test Item Value Reference Range Interpretation Comments CO2 (test code = CO2) 29 24-32 [place] 509392-08-05 18:13:00 Test Item Value Reference Range Interpretation Comments Calcium Lvl (test code = Calcium Lvl) 9.2 8.5-10.5 [facility] HospitalFlynnLANCE [place] [address]SRIOQ8019-40-03 18:13:00 Test Item Value Reference Range Interpretation Comments Total Protein (test code = Total 6.6 6.4-8.4 Protein) [facility] HospitalFlynnLANCE [place] [address]CFHUQ5915-92-07 18:13:00 Test Item Value Reference Range Interpretation Comments Albumin Lvl (test code = Albumin Lvl) 3.1 3.5-5.0 [facility] [id number] 18:13:00 Test Item Value Reference Range Interpretation Comments ALT (test code = ALT) 36 See_Comment [Auto mated message] The system which ge nerated this result transmit swathi reference range : <=65. The reference range was not used to interpr et this result as deny l/abnormal. [facility] [id number] 18:13:00 Test Item Value Reference Range Interpretation Comments AST (test code = AST) 28 See_Comment [Auto mated message] The system which ge nerated this result transmit swathi reference range : <=37. The reference range was not used to interpr et this result as deny l/abnormal. [facility] [id number] 18:13:00 Test Item Value Reference Range Interpretation Comments Alk Phos (test code = Alk Phos) 231 39-136 [facility] [id number] 18:13:00 Test Item Value Reference Range Interpretation Comments Bili Total (test code = Bili Total) 1.0 0.2-1.3 [facility]Play[facility] [id number] 18:13:00 Test Item Value Reference Range Interpretation Comments AGAP (test code = AGAP) 11.4 10.0-20.0 [facility] [id number] 18:13:00 Test Item Value Reference Range Interpretation Comments B/C Ratio (test code = B/C Ratio) 8 1 6-25 [place] 509392-08-05 18:13:00 Test Item Value Reference Range Interpretation Comments Globulin (test code = Globulin) 3.5 2.7-4.2 [place] 509392-08-05 18:13:00 Test Item Value Reference Range Interpretation Comments A/G Ratio (test code = A/G Ratio) 0.9 1 0.7-1.6 [place] 509392-08-05 18:13:00 Test Item Value Reference Range Interpretation Comments eGFR (test code = eGFR) 9 [place] 796562-08-05 18:13:00 Test Item Value Reference Range Interpretation Comments WBC (test code = WBC) 4.8 3.7-10.4 [place] 796562-08-05 18:13:00 Test Item Value Reference Range Interpretation Comments RBC (test code = RBC) 1.93 4.70-6.10 [place] 796562-08-05 18:13:00 Test Item Value Reference Range Interpretation Comments Hgb (test code = Hgb) 7.2 14.0-18.0 [place] 796562-08-05 18:13:00 Test Item Value Reference Range Interpretation Comments Hct (test code = Hct) 21.2 42.0-54.0 [place] 796562-08-05 18:13:00 Test Item Value Reference Range Interpretation Comments MCV (test code = MCV) 110.1 80.0-94.0 [place] 796562-08-05 18:13:00 Test Item Value Reference Range Interpretation Comments MCH (test code = MCH) 37.1 pg 27.0-31.0 [place] 796562-08-05 18:13:00 Test Item Value Reference Range Interpretation Comments MCHC (test code = MCHC) 33.7 32.0-36.0 [place] 796562-08-05 18:13:00 Test Item Value Reference Range Interpretation Comments RDW (test code = RDW) 25.8 11.5-14.5 [place] 796562-08-05 18:13:00 Test Item Value Reference Range Interpretation Comments Platelet (test code = Platelet) 216 133-450 [facility] GreenvilleSlobflgMABNDLBPAD7600-05-73 18:13:00 Test Item Value Reference Range Interpretation Comments MPV (test code = MPV) 8.2 7.4-10.4 [place] [address]-08-05 18:13:00 Test Item Value Reference Range Interpretation Comments PT (test code = PT) 16.9 s 12.0-14.7 [place] 796562-08-05 18:13:00 Test Item Value Reference Range Interpretation Comments INR (test code = INR) 1.39 1 0.85-1.17 [place] [address]-08-05 18:13:00 Test Item Value Reference Range Interpretation Comments PTT (test code = PTT) 35.0 s 22.9-35.8 [place] [address]-08-05 18:13:00 Test Item Value Reference Range Interpretation Comments Plt Morph (test code = Normal (01/02/22 1:13 PM) Plt Morph) [place] 796562-08-05 18:13:00 Test Item Value Reference Range Interpretation Comments Segs (test code = Segs) 76.4 45.0-75.0 [place] 796562-08-05 18:13:00 Test Item Value Reference Range Interpretation Comments Lymphocytes (test code = Lymphocytes) 14.6 20.0-40.0 [place] 796562-08-05 18:13:00 Test Item Value Reference Range Interpretation Comments Monocytes (test code = Monocytes) 7.5 2.0-12.0 [place] 796562-08-05 18:13:00 Test Item Value Reference Range Interpretation Comments Eosinophils (test code = 0.6 See_Comment [A utomated message] The Eosinophils) system which ge nerated this result tra nsmitted reference range : <=4.0. The reference r samantha was not used to int erpret this result as normal/abnormal . [place] [address]-08-05 18:13:00 Test Item Value Reference Range Interpretation Comments Basophils (test code = 0.9 See_Comment [Aut omated message] The Basophils) system which ge nerated this result tra nsmitted reference range : <=1.0. The reference r samantha was not used to int erpret this result as normal/abnormal . [place] 796562-08-05 18:13:00 Test Item Value Reference Range Interpretation Comments Neutrophils # (test code = Neutrophils 3.7 1.5-8.1 #) [facility] GreenvilleHejrjskCWGNNRUVXY0540-29-82 18:13:00 Test Item Value Reference Range Interpretation Comments Lymphocytes # (test code = Lymphocytes 0.7 1.0-5.5 #) [facility] [place]1496[place]94-43 18:13:00 Test Item Value Reference Range Interpretation Comments Monocytes # (test code 0.4 See_Comment [Aut omated message] The = Monocytes #) system which generated this result tra nsmitted reference range : <=0.8. The reference r samantha was not used to int erpret this result as normal/abnormal . [facility] GreenvilleFnrymefLLWZHRJEAO0106-28-88 18:13:00 Test Item Value Reference Range Interpretation Comments Anisocyte (test code = 2+ *ABN*(01/02/22 1:13 Anisocyte) PM) [facility] GreenvilleXxhukycROXKAMTCJM0915-09-22 18:13:00 Test Item Value Reference Range Interpretation Comments Macrocyte (test code = 2+ *ABN*(01/02/22 1:13 Macrocyte) PM) [facility] [id number] 18:13:00 Test Item Value Reference Range Interpretation Comments HS Troponin I (test code = HS Troponin 156 I) [facility]2022-08-05 18:13:00 Test Item Value Reference Range Interpretation Comments Glucose Lvl (test code = Glucose Lvl) 237 70-99 [facility]2022-08-05 18:13:00 Test Item Value Reference Range Interpretation Comments BUN (test code = BUN) 46 7-22 [facility]2022-08-05 18:13:00 Test Item Value Reference Range Interpretation Comments Creatinine Lvl (test code = Creatinine 5.92 0.50-1.40 Lvl) [facility]2022-08-05 18:13:00 Test Item Value Reference Range Interpretation Comments Sodium Lvl (test code = Sodium Lvl) 134 135-145 [facility]2022-08-05 18:13:00 Test Item Value Reference Range Interpretation Comments Potassium Lvl (test code = Potassium 4.4 3.5-5.1 Lvl) [facility]2022-08-05 18:13:00 Test Item Value Reference Range Interpretation Comments Chloride Lvl (test code = Chloride Lvl) 98 95-109 [facility] [address]LIZMM7577-84-89 18:13:00 Test Item Value Reference Range Interpretation Comments CO2 (test code = CO2) 29 24-32 [place] [address]-08-05 18:13:00 Test Item Value Reference Range Interpretation Comments Calcium Lvl (test code = Calcium Lvl) 9.2 8.5-10.5 [facility] [id number] 18:13:00 Test Item Value Reference Range Interpretation Comments Total Protein (test code = Total 6.6 6.4-8.4 Protein) [facility] HospitalFlynn[address]08-05 18:13:00 Test Item Value Reference Range Interpretation Comments Albumin Lvl (test code = Albumin Lvl) 3.1 3.5-5.0 [facility] [id number] 18:13:00 Test Item Value Reference Range Interpretation Comments ALT (test code = ALT) 36 See_Comment [Auto mated message] The system which ge nerated this result transmit swathi reference range : <=65. The reference range was not used to interpr et this result as deny l/abnormal. [facility] [id number] 18:13:00 Test Item Value Reference Range Interpretation Comments AST (test code = AST) 28 See_Comment [Auto mated message] The system which ge nerated this result transmit swathi reference range : <=37. The reference range was not used to interpr et this result as deny l/abnormal. [facility] [id number] 18:13:00 Test Item Value Reference Range Interpretation Comments Alk Phos (test code = Alk Phos) 231 39-136 [facility] [id number] 18:13:00 Test Item Value Reference Range Interpretation Comments Bili Total (test code = Bili Total) 1.0 0.2-1.3 [facility] [id number] 18:13:00 Test Item Value Reference Range Interpretation Comments AGAP (test code = AGAP) 11.4 10.0-20.0 [facility] [id number] 18:13:00 Test Item Value Reference Range Interpretation Comments B/C Ratio (test code = B/C Ratio) 8 1 6-25 [facility] [id number] 18:13:00 Test Item Value Reference Range Interpretation Comments Globulin (test code = Globulin) 3.5 2.7-4.2 [facility] [id number] 18:13:00 Test Item Value Reference Range Interpretation Comments A/G Ratio (test code = A/G Ratio) 0.9 1 0.7-1.6 [facility] [id number] 18:13:00 Test Item Value Reference Range Interpretation Comments eGFR (test code = eGFR) 9 [place] 796562-08-05 18:13:00 Test Item Value Reference Range Interpretation Comments WBC (test code = WBC) 4.8 3.7-10.4 [place] [address]-08-05 18:13:00 Test Item Value Reference Range Interpretation Comments RBC (test code = RBC) 1.93 4.70-6.10 [place] [address]-08-05 18:13:00 Test Item Value Reference Range Interpretation Comments Hgb (test code = Hgb) 7.2 14.0-18.0 [place] [address]-08-05 18:13:00 Test Item Value Reference Range Interpretation Comments Hct (test code = Hct) 21.2 42.0-54.0 [place] [address]-08-05 18:13:00 Test Item Value Reference Range Interpretation Comments MCV (test code = MCV) 110.1 80.0-94.0 [place] [address]-08-05 18:13:00 Test Item Value Reference Range Interpretation Comments MCH (test code = MCH) 37.1 pg 27.0-31.0 [place] [address]-08-05 18:13:00 Test Item Value Reference Range Interpretation Comments MCHC (test code = MCHC) 33.7 32.0-36.0 [place] [address]-08-05 18:13:00 Test Item Value Reference Range Interpretation Comments RDW (test code = RDW) 25.8 11.5-14.5 [place] 796562-08-05 18:13:00 Test Item Value Reference Range Interpretation Comments Platelet (test code = Platelet) 216 133-450 [facility] GreenvilleAuszgojCHARBLEVVS0470-32-44 18:13:00 Test Item Value Reference Range Interpretation Comments MPV (test code = MPV) 8.2 7.4-10.4 [facility] GreenvilleUvonotcIEYPGFYQWA7142-07-19 18:13:00 Test Item Value Reference Range Interpretation Comments PT (test code = PT) 16.9 s 12.0-14.7 [facility] GreenvilleZvcqsvuWWYSQSAEPN2796-74-27 18:13:00 Test Item Value Reference Range Interpretation Comments INR (test code = INR) 1.39 1 0.85-1.17 [facility] GreenvilleDljsptwRODBEAGJRT5220-08-34 18:13:00 Test Item Value Reference Range Interpretation Comments PTT (test code = PTT) 35.0 s 22.9-35.8 [facility] GreenvilleVlmqhagKGYTPBYQRS9714-40-60 18:13:00 Test Item Value Reference Range Interpretation Comments Plt Morph (test code = Normal (01/02/22 1:13 PM) Plt Morph) [facility] GreenvilleUesorufYJYHZYWDJN9072-67-74 18:13:00 Test Item Value Reference Range Interpretation Comments Segs (test code = Segs) 76.4 45.0-75.0 [facility] GreenvilleWihdiueWGULUANJUV2945-26-82 18:13:00 Test Item Value Reference Range Interpretation Comments Lymphocytes (test code = Lymphocytes) 14.6 20.0-40.0 [facility] GreenvilleTaqnenwXGEUEZOCXO2124-53-77 18:13:00 Test Item Value Reference Range Interpretation Comments Monocytes (test code = Monocytes) 7.5 2.0-12.0 [facility] GreenvilleJijqmgxQRLKSILBCX8715-58-65 18:13:00 Test Item Value Reference Range Interpretation Comments Eosinophils (test code = 0.6 See_Comment [A utomated message] The Eosinophils) system which ge nerated this result tra nsmitted reference range : <=4.0. The reference r samantha was not used to int erpret this result as normal/abnormal . [facility] GreenvilleDiajbbvCQEFQOYHIF2534-37-70 18:13:00 Test Item Value Reference Range Interpretation Comments Basophils (test code = 0.9 See_Comment [Aut omated message] The Basophils) system which ge nerated this result tra nsmitted reference range : <=1.0. The reference r samantha was not used to int erpret this result as normal/abnormal . [facility] GreenvilleSgffhfpZVQTFDQSBE9174-17-90 18:13:00 Test Item Value Reference Range Interpretation Comments Neutrophils # (test code = Neutrophils 3.7 1.5-8.1 #) [place] 796562-08-05 18:13:00 Test Item Value Reference Range Interpretation Comments Lymphocytes # (test code = Lymphocytes 0.7 1.0-5.5 #) [place] 796562-08-05 18:13:00 Test Item Value Reference Range Interpretation Comments Monocytes # (test code 0.4 See_Comment [Aut omated message] The = Monocytes #) system which generated this result tra nsmitted reference range : <=0.8. The reference r samantha was not used to int erpret this result as normal/abnormal . [facility] GreenvilleSazeifuVMFJVQPIOH1194-34-54 18:13:00 Test Item Value Reference Range Interpretation Comments Anisocyte (test code = 2+ *ABN*(01/02/22 1:13 Anisocyte) PM) [place] 796562-08-05 18:13:00 Test Item Value Reference Range Interpretation Comments Macrocyte (test code = 2+ *ABN*(01/02/22 1:13 Macrocyte) PM) [facility] [id number] 18:13:00 Test Item Value Reference Range Interpretation Comments HS Troponin I (test code = HS Troponin 156 I) [facility]2022-08-05 18:13:00 Test Item Value Reference Range Interpretation Comments Glucose Lvl (test code = Glucose Lvl) 237 70-99 [facility]2022-08-05 18:13:00 Test Item Value Reference Range Interpretation Comments BUN (test code = BUN) 46 7-22 [facility]2022-08-05 18:13:00 Test Item Value Reference Range Interpretation Comments Creatinine Lvl (test code = Creatinine 5.92 0.50-1.40 Lvl) [facility]2022-08-05 18:13:00 Test Item Value Reference Range Interpretation Comments Sodium Lvl (test code = Sodium Lvl) 134 135-145 [facility]2022-08-05 18:13:00 Test Item Value Reference Range Interpretation Comments Potassium Lvl (test code = Potassium 4.4 3.5-5.1 Lvl) [facility]2022-08-05 18:13:00 Test Item Value Reference Range Interpretation Comments Chloride Lvl (test code = Chloride Lvl) 98 95-109 [facility]2022-08-05 18:13:00 Test Item Value Reference Range Interpretation Comments CO2 (test code = CO2) 29 24-32 [address]08-05 18:13:00 Test Item Value Reference Range Interpretation Comments Calcium Lvl (test code = Calcium Lvl) 9.2 8.5-10.5 [address]08-05 18:13:00 Test Item Value Reference Range Interpretation Comments Total Protein (test code = Total 6.6 6.4-8.4 Protein) [address]08-05 18:13:00 Test Item Value Reference Range Interpretation Comments Albumin Lvl (test code = Albumin Lvl) 3.1 3.5-5.0 [facility] [id number] 18:13:00 Test Item Value Reference Range Interpretation Comments ALT (test code = ALT) 36 See_Comment [Auto mated message] The system which ge nerated this result transmit swathi reference range : <=65. The reference range was not used to interpr et this result as deny l/abnormal. [facility] [id number] 18:13:00 Test Item Value Reference Range Interpretation Comments AST (test code = AST) 28 See_Comment [Auto mated message] The system which ge nerated this result transmit swathi reference range : <=37. The reference range was not used to interpr et this result as deny l/abnormal. [address]08-05 18:13:00 Test Item Value Reference Range Interpretation Comments Alk Phos (test code = Alk Phos) 231 39-136 [facility] [id number] 18:13:00 Test Item Value Reference Range Interpretation Comments Bili Total (test code = Bili Total) 1.0 0.2-1.3 [facility] [id number] 18:13:00 Test Item Value Reference Range Interpretation Comments AGAP (test code = AGAP) 11.4 10.0-20.0 [facility] [id number] 18:13:00 Test Item Value Reference Range Interpretation Comments B/C Ratio (test code = B/C Ratio) 8 1 6-25 [facility] [id number] 18:13:00 Test Item Value Reference Range Interpretation Comments Globulin (test code = Globulin) 3.5 2.7-4.2 [facility]2022-08-05 18:13:00 Test Item Value Reference Range Interpretation Comments A/G Ratio (test code = A/G Ratio) 0.9 1 0.7-1.6 [facility]2022-08-05 18:13:00 Test Item Value Reference Range Interpretation Comments eGFR (test code = eGFR) 9 [place] 796562-08-05 18:13:00 Test Item Value Reference Range Interpretation Comments WBC (test code = WBC) 4.8 3.7-10.4 [place] 796562-08-05 18:13:00 Test Item Value Reference Range Interpretation Comments RBC (test code = RBC) 1.93 4.70-6.10 [place] 796562-08-05 18:13:00 Test Item Value Reference Range Interpretation Comments Hgb (test code = Hgb) 7.2 14.0-18.0 [place] [address]-08-05 18:13:00 Test Item Value Reference Range Interpretation Comments Hct (test code = Hct) 21.2 42.0-54.0 [place] 796562-08-05 18:13:00 Test Item Value Reference Range Interpretation Comments MCV (test code = MCV) 110.1 80.0-94.0 [place] 796562-08-05 18:13:00 Test Item Value Reference Range Interpretation Comments MCH (test code = MCH) 37.1 pg 27.0-31.0 [place] 796562-08-05 18:13:00 Test Item Value Reference Range Interpretation Comments MCHC (test code = MCHC) 33.7 32.0-36.0 [place] [address]-08-05 18:13:00 Test Item Value Reference Range Interpretation Comments RDW (test code = RDW) 25.8 11.5-14.5 [place] 796562-08-05 18:13:00 Test Item Value Reference Range Interpretation Comments Platelet (test code = Platelet) 216 133-450 [facility] GreenvilleUnzdpzoFHPQCQOTFB5900-33-61 18:13:00 Test Item Value Reference Range Interpretation Comments MPV (test code = MPV) 8.2 7.4-10.4 [place] 796562-08-05 18:13:00 Test Item Value Reference Range Interpretation Comments PT (test code = PT) 16.9 s 12.0-14.7 [place] [address]-08-05 18:13:00 Test Item Value Reference Range Interpretation Comments INR (test code = INR) 1.39 1 0.85-1.17 [place] [address]-08-05 18:13:00 Test Item Value Reference Range Interpretation Comments PTT (test code = PTT) 35.0 s 22.9-35.8 [place] [address]-08-05 18:13:00 Test Item Value Reference Range Interpretation Comments Plt Morph (test code = Normal (01/02/22 1:13 PM) Plt Morph) [place] [address]-08-05 18:13:00 Test Item Value Reference Range Interpretation Comments Segs (test code = Segs) 76.4 45.0-75.0 [place] [address]-08-05 18:13:00 Test Item Value Reference Range Interpretation Comments Lymphocytes (test code = Lymphocytes) 14.6 20.0-40.0 [place] 796562-08-05 18:13:00 Test Item Value Reference Range Interpretation Comments Monocytes (test code = Monocytes) 7.5 2.0-12.0 [place] [address]-08-05 18:13:00 Test Item Value Reference Range Interpretation Comments Eosinophils (test code = 0.6 See_Comment [A utomated message] The Eosinophils) system which ge nerated this result tra nsmitted reference range : <=4.0. The reference r samantha was not used to int erpret this result as normal/abnormal . [place] [address]-08-05 18:13:00 Test Item Value Reference Range Interpretation Comments Basophils (test code = 0.9 See_Comment [Aut omated message] The Basophils) system which ge nerated this result tra nsmitted reference range : <=1.0. The reference r samantha was not used to int erpret this result as normal/abnormal . [place] [address]-08-05 18:13:00 Test Item Value Reference Range Interpretation Comments Neutrophils # (test code = Neutrophils 3.7 1.5-8.1 #) [place] 796562-08-05 18:13:00 Test Item Value Reference Range Interpretation Comments Lymphocytes # (test code = Lymphocytes 0.7 1.0-5.5 #) [facility] GreenvilleOduwaceUXIZTIQQQZ5491-25-73 18:13:00 Test Item Value Reference Range Interpretation Comments Monocytes # (test code 0.4 See_Comment [Aut omated message] The = Monocytes #) system which generated this result tra nsmitted reference range : <=0.8. The reference r samantha was not used to int erpret this result as normal/abnormal . [facility] GreenvilleYoadxzrLSFLGKBBHS7995-90-37 18:13:00 Test Item Value Reference Range Interpretation Comments Anisocyte (test code = 2+ *ABN*(01/02/22 1:13 Anisocyte) PM) [facility] GreenvillePznpnggBACPLUKWLE5154-41-83 18:13:00 Test Item Value Reference Range Interpretation Comments Macrocyte (test code = 2+ *ABN*(01/02/22 1:13 Macrocyte) PM) [facility] [id number] 18:13:00 Test Item Value Reference Range Interpretation Comments HS Troponin I (test code = HS Troponin 156 I) [facility]2022-08-05 18:13:00 Test Item Value Reference Range Interpretation Comments Glucose Lvl (test code = Glucose Lvl) 237 70-99 [facility]2022-08-05 18:13:00 Test Item Value Reference Range Interpretation Comments BUN (test code = BUN) 46 7-22 [facility]2022-08-05 18:13:00 Test Item Value Reference Range Interpretation Comments Creatinine Lvl (test code = Creatinine 5.92 0.50-1.40 Lvl) [facility]2022-08-05 18:13:00 Test Item Value Reference Range Interpretation Comments Sodium Lvl (test code = Sodium Lvl) 134 135-145 [facility]2022-08-05 18:13:00 Test Item Value Reference Range Interpretation Comments Potassium Lvl (test code = Potassium 4.4 3.5-5.1 Lvl) [facility]2022-08-05 18:13:00 Test Item Value Reference Range Interpretation Comments Chloride Lvl (test code = Chloride Lvl) 98 95-109 [facility]2022-08-05 18:13:00 Test Item Value Reference Range Interpretation Comments CO2 (test code = CO2) 29 24-32 [facility] [id number] 18:13:00 Test Item Value Reference Range Interpretation Comments Calcium Lvl (test code = Calcium Lvl) 9.2 8.5-10.5 [place] 509392-08-05 18:13:00 Test Item Value Reference Range Interpretation Comments Total Protein (test code = Total 6.6 6.4-8.4 Protein) [place] [address]-08-05 18:13:00 Test Item Value Reference Range Interpretation Comments Albumin Lvl (test code = Albumin Lvl) 3.1 3.5-5.0 [facility] [id number] 18:13:00 Test Item Value Reference Range Interpretation Comments ALT (test code = ALT) 36 See_Comment [Auto mated message] The system which ge nerated this result transmit swathi reference range : <=65. The reference range was not used to interpr et this result as deny l/abnormal. [facility] [id number] 18:13:00 Test Item Value Reference Range Interpretation Comments AST (test code = AST) 28 See_Comment [Auto mated message] The system which ge nerated this result transmit swathi reference range : <=37. The reference range was not used to interpr et this result as deny l/abnormal. [facility] [id number] 18:13:00 Test Item Value Reference Range Interpretation Comments Alk Phos (test code = Alk Phos) 231 39-136 [facility] [id number] 18:13:00 Test Item Value Reference Range Interpretation Comments Bili Total (test code = Bili Total) 1.0 0.2-1.3 [facility] [id number] 18:13:00 Test Item Value Reference Range Interpretation Comments AGAP (test code = AGAP) 11.4 10.0-20.0 [facility] [id number] 18:13:00 Test Item Value Reference Range Interpretation Comments B/C Ratio (test code = B/C Ratio) 8 1 6-25 [facility] [id number] 18:13:00 Test Item Value Reference Range Interpretation Comments Globulin (test code = Globulin) 3.5 2.7-4.2 [facility]2022-08-05 18:13:00 Test Item Value Reference Range Interpretation Comments A/G Ratio (test code = A/G Ratio) 0.9 1 0.7-1.6 [place] 509392-08-05 18:13:00 Test Item Value Reference Range Interpretation Comments eGFR (test code = eGFR) 9 [place] [address]-08-05 18:13:00 Test Item Value Reference Range Interpretation Comments WBC (test code = WBC) 4.8 3.7-10.4 [place] 796562-08-05 18:13:00 Test Item Value Reference Range Interpretation Comments RBC (test code = RBC) 1.93 4.70-6.10 [place] [address]-08-05 18:13:00 Test Item Value Reference Range Interpretation Comments Hgb (test code = Hgb) 7.2 14.0-18.0 [place] [address]-08-05 18:13:00 Test Item Value Reference Range Interpretation Comments Hct (test code = Hct) 21.2 42.0-54.0 [place] [address]-08-05 18:13:00 Test Item Value Reference Range Interpretation Comments MCV (test code = MCV) 110.1 80.0-94.0 [place] [address]-08-05 18:13:00 Test Item Value Reference Range Interpretation Comments MCH (test code = MCH) 37.1 pg 27.0-31.0 [place] [address]-08-05 18:13:00 Test Item Value Reference Range Interpretation Comments MCHC (test code = MCHC) 33.7 32.0-36.0 [place] 796562-08-05 18:13:00 Test Item Value Reference Range Interpretation Comments RDW (test code = RDW) 25.8 11.5-14.5 [place] [address]-08-05 18:13:00 Test Item Value Reference Range Interpretation Comments Platelet (test code = Platelet) 216 133-450 [place] 796562-08-05 18:13:00 Test Item Value Reference Range Interpretation Comments MPV (test code = MPV) 8.2 7.4-10.4 [place] [address]-08-05 18:13:00 Test Item Value Reference Range Interpretation Comments PT (test code = PT) 16.9 s 12.0-14.7 [place] [address]-08-05 18:13:00 Test Item Value Reference Range Interpretation Comments INR (test code = INR) 1.39 1 0.85-1.17 [place] [address]-08-05 18:13:00 Test Item Value Reference Range Interpretation Comments PTT (test code = PTT) 35.0 s 22.9-35.8 [place] [address]-08-05 18:13:00 Test Item Value Reference Range Interpretation Comments Plt Morph (test code = Normal (01/02/22 1:13 PM) Plt Morph) [place] [address]-08-05 18:13:00 Test Item Value Reference Range Interpretation Comments Segs (test code = Segs) 76.4 45.0-75.0 [place] [address]-08-05 18:13:00 Test Item Value Reference Range Interpretation Comments Lymphocytes (test code = Lymphocytes) 14.6 20.0-40.0 [place] [address]-08-05 18:13:00 Test Item Value Reference Range Interpretation Comments Monocytes (test code = Monocytes) 7.5 2.0-12.0 [place] 796562-08-05 18:13:00 Test Item Value Reference Range Interpretation Comments Eosinophils (test code = 0.6 See_Comment [A utomated message] The Eosinophils) system which ge nerated this result tra nsmitted reference range : <=4.0. The reference r samantha was not used to int erpret this result as normal/abnormal . [place] 796562-08-05 18:13:00 Test Item Value Reference Range Interpretation Comments Basophils (test code = 0.9 See_Comment [Aut omated message] The Basophils) system which ge nerated this result tra nsmitted reference range : <=1.0. The reference r samantha was not used to int erpret this result as normal/abnormal . [place] 796562-08-05 18:13:00 Test Item Value Reference Range Interpretation Comments Neutrophils # (test code = Neutrophils 3.7 1.5-8.1 #) [place] 796562-08-05 18:13:00 Test Item Value Reference Range Interpretation Comments Lymphocytes # (test code = Lymphocytes 0.7 1.0-5.5 #) [facility] SurgeryMxcgtfkZAALAINQST8253-01-35 18:13:00 Test Item Value Reference Range Interpretation Comments Monocytes # (test code 0.4 See_Comment [Aut omated message] The = Monocytes #) system which generated this result tra nsmitted reference range : <=0.8. The reference r samantha was not used to int erpret this result as normal/abnormal . [facility] SurgerySihpmcmFXIPASLVFI9905-44-15 18:13:00 Test Item Value Reference Range Interpretation Comments Anisocyte (test code = 2+ *ABN*(01/02/22 1:13 Anisocyte) PM) [facility] SurgeryPkubqsaMCTTARKJLA7191-34-75 18:13:00 Test Item Value Reference Range Interpretation Comments Macrocyte (test code = 2+ *ABN*(01/02/22 1:13 Macrocyte) PM) [facility] [id number] 18:13:00 Test Item Value Reference Range Interpretation Comments HS Troponin I (test code = HS Troponin 156 I) [facility] [id number] 18:13:00 Test Item Value Reference Range Interpretation Comments Glucose Lvl (test code = Glucose Lvl) 237 70-99 [facility] [id number] 18:13:00 Test Item Value Reference Range Interpretation Comments BUN (test code = BUN) 46 7-22 [facility] [id number] 18:13:00 Test Item Value Reference Range Interpretation Comments Creatinine Lvl (test code = Creatinine 5.92 0.50-1.40 Lvl) [facility] [id number] [facility]:13:00 Test Item Value Reference Range Interpretation Comments Sodium Lvl (test code = Sodium Lvl) 134 135-145 [facility] [id number] 18:13:00 Test Item Value Reference Range Interpretation Comments Potassium Lvl (test code = Potassium 4.4 3.5-5.1 Lvl) [facility] [id number] 18:13:00 Test Item Value Reference Range Interpretation Comments Chloride Lvl (test code = Chloride Lvl) 98 95-109 [facility] [id number] 18:13:00 Test Item Value Reference Range Interpretation Comments CO2 (test code = CO2) 29 24-32 [facility] [id number] 18:13:00 Test Item Value Reference Range Interpretation Comments Calcium Lvl (test code = Calcium Lvl) 9.2 8.5-10.5 [facility] [id number] 18:13:00 Test Item Value Reference Range Interpretation Comments Total Protein (test code = Total 6.6 6.4-8.4 Protein) [facility] [id number] 18:13:00 Test Item Value Reference Range Interpretation Comments Albumin Lvl (test code = Albumin Lvl) 3.1 3.5-5.0 [facility] [id number] 18:13:00 Test Item Value Reference Range Interpretation Comments ALT (test code = ALT) 36 See_Comment [Auto mated message] The system which ge nerated this result transmit swathi reference range : <=65. The reference range was not used to interpr et this result as deny l/abnormal. [facility] [id number] 18:13:00 Test Item Value Reference Range Interpretation Comments AST (test code = AST) 28 See_Comment [Auto mated message] The system which ge nerated this result transmit swathi reference range : <=37. The reference range was not used to interpr et this result as deny l/abnormal. [facility] [employer] [id number] 18:13:00 Test Item Value Reference Range Interpretation Comments Alk Phos (test code = Alk Phos) 231 39-136 [facility] [id number] 18:13:00 Test Item Value Reference Range Interpretation Comments Bili Total (test code = Bili Total) 1.0 0.2-1.[address] [facility] [employer] [id number] 18:13:00 Test Item Value Reference Range Interpretation Comments AGAP (test code = AGAP) 11.4 10.0-20.[address] [facility] [employer] [id number] 18:13:00 Test Item Value Reference Range Interpretation Comments B/C Ratio (test code = B/C Ratio) 8 1 6-25 [facility] [id number] 18:13:00 Test Item Value Reference Range Interpretation Comments Globulin (test code = Globulin) 3.5 2.7-4.[address] [facility] [employer] [id number] 18:13:00 Test Item Value Reference Range Interpretation Comments A/G Ratio (test code = A/G Ratio) 0.9 1 0.7-1.6 [facility]2022-08-05 18:13:00 Test Item Value Reference Range Interpretation Comments eGFR (test code = eGFR) 9 [place] 796562-08-05 18:13:00 Test Item Value Reference Range Interpretation Comments WBC (test code = WBC) 4.8 3.7-10.4 [place] 796562-08-05 18:13:00 Test Item Value Reference Range Interpretation Comments RBC (test code = RBC) 1.93 4.70-6.10 [place] [address]-08-05 18:13:00 Test Item Value Reference Range Interpretation Comments Hgb (test code = Hgb) 7.2 14.0-18.0 [place] [address]-08-05 18:13:00 Test Item Value Reference Range Interpretation Comments Hct (test code = Hct) 21.2 42.0-54.0 [place] [address]-08-05 18:13:00 Test Item Value Reference Range Interpretation Comments MCV (test code = MCV) 110.1 80.0-94.0 [place] [address]-08-05 18:13:00 Test Item Value Reference Range Interpretation Comments MCH (test code = MCH) 37.1 pg 27.0-31.0 [place] [address]-08-05 18:13:00 Test Item Value Reference Range Interpretation Comments MCHC (test code = MCHC) 33.7 32.0-36.0 [place] [address]-08-05 18:13:00 Test Item Value Reference Range Interpretation Comments RDW (test code = RDW) 25.8 11.5-14.5 [place] [address]-08-05 18:13:00 Test Item Value Reference Range Interpretation Comments Platelet (test code = Platelet) 216 133-450 [place] 796562-08-05 18:13:00 Test Item Value Reference Range Interpretation Comments MPV (test code = MPV) 8.2 7.4-10.4 [place] [address]-08-05 18:13:00 Test Item Value Reference Range Interpretation Comments PT (test code = PT) 16.9 s 12.0-14.7 [facility]villeSoedcmjGJZWAFFAHL7536-56-98 18:13:00 Test Item Value Reference Range Interpretation Comments INR (test code = INR) 1.39 1 0.85-1.17 [facility] GreenvilleQxdfeawVNDJAGLFKA3998-99-78 18:13:00 Test Item Value Reference Range Interpretation Comments PTT (test code = PTT) 35.0 s 22.9-35.8 [facility] GreenvilleDftehquNLCRUMAMZT3806-12-45 18:13:00 Test Item Value Reference Range Interpretation Comments Plt Morph (test code = Normal (01/02/22 1:13 PM) Plt Morph) [facility] GreenvilleUptklklVQTGRDNRCY6948-02-17 18:13:00 Test Item Value Reference Range Interpretation Comments Segs (test code = Segs) 76.4 45.0-75.0 [facility] GreenvilleCzdqgnfSNRXLWCAFZ7912-81-72 18:13:00 Test Item Value Reference Range Interpretation Comments Lymphocytes (test code = Lymphocytes) 14.6 20.0-40.0 [facility] GreenvilleCqdwdsoSPYRZTETVK9023-04-97 18:13:00 Test Item Value Reference Range Interpretation Comments Monocytes (test code = Monocytes) 7.5 2.0-12.0 [facility] GreenvilleOyjwmjqWBARNUTWRB6579-56-11 18:13:00 Test Item Value Reference Range Interpretation Comments Eosinophils (test code = 0.6 See_Comment [A utomated message] The Eosinophils) system which ge nerated this result tra nsmitted reference range : <=4.0. The reference r samantha was not used to int erpret this result as normal/abnormal . [facility] GreenvilleEnarcxkMWWSHHTUOF4761-86-28 18:13:00 Test Item Value Reference Range Interpretation Comments Basophils (test code = 0.9 See_Comment [Aut omated message] The Basophils) system which ge nerated this result tra nsmitted reference range : <=1.0. The reference r samantha was not used to int erpret this result as normal/abnormal . [facility] GreenvilleCedlpdyXIYAIPIRCY9471-00-60 18:13:00 Test Item Value Reference Range Interpretation Comments Neutrophils # (test code = Neutrophils 3.7 1.5-8.1 #) [facility] GreenvillePyljidxOGJRQYDLSE1457-61-00 18:13:00 Test Item Value Reference Range Interpretation Comments Lymphocytes # (test code = Lymphocytes 0.7 1.0-5.5 #) [facility] GreenvilleEheizseRSMXGAWBOU5486-29-87 18:13:00 Test Item Value Reference Range Interpretation Comments Monocytes # (test code 0.4 See_Comment [Aut omated message] The = Monocytes #) system which generated this result tra nsmitted reference range : <=0.8. The reference r samantha was not used to int erpret this result as normal/abnormal . [facility] GreenvilleZggfsgiRUUDIKXIKT5436-30-92 18:13:00 Test Item Value Reference Range Interpretation Comments Anisocyte (test code = 2+ *ABN*(01/02/22 1:13 Anisocyte) PM) [facility] GreenvillePvbdunpGAQHNFVSAM8040-73-78 18:13:00 Test Item Value Reference Range Interpretation Comments Macrocyte (test code = 2+ *ABN*(01/02/22 1:13 Macrocyte) PM) [id number] 18:13:00 Test Item Value Reference Range Interpretation Comments HS Troponin I (test code = HS Troponin 156 I) [facility]2022-08-05 18:13:00 Test Item Value Reference Range Interpretation Comments Glucose Lvl (test code = Glucose Lvl) 237 70-99 [facility]2022-08-05 18:13:00 Test Item Value Reference Range Interpretation Comments BUN (test code = BUN) 46 7-22 [facility]2022-08-05 18:13:00 Test Item Value Reference Range Interpretation Comments Creatinine Lvl (test code = Creatinine 5.92 0.50-1.40 Lvl) [facility]2022-08-05 18:13:00 Test Item Value Reference Range Interpretation Comments Sodium Lvl (test code = Sodium Lvl) 134 135-145 [facility]2022-08-05 18:13:00 Test Item Value Reference Range Interpretation Comments Potassium Lvl (test code = Potassium 4.4 3.5-5.1 Lvl) [facility]2022-08-05 18:13:00 Test Item Value Reference Range Interpretation Comments Chloride Lvl (test code = Chloride Lvl) 98 95-109 [facility]2022-08-05 18:13:00 Test Item Value Reference Range Interpretation Comments CO2 (test code = CO2) 29 24-32 [facility]2022-08-05 18:13:00 Test Item Value Reference Range Interpretation Comments Calcium Lvl (test code = Calcium Lvl) 9.2 8.5-10.5 [address]08-05 18:13:00 Test Item Value Reference Range Interpretation Comments Total Protein (test code = Total 6.6 6.4-8.4 Protein) [address]08-05 18:13:00 Test Item Value Reference Range Interpretation Comments Albumin Lvl (test code = Albumin Lvl) 3.1 3.5-5.0 [address]08-05 18:13:00 Test Item Value Reference Range Interpretation Comments ALT (test code = ALT) 36 See_Comment [Auto mated message] The system which ge nerated this result transmit swathi reference range : <=65. The reference range was not used to interpr et this result as deny l/abnormal. [address]08-05 18:13:00 Test Item Value Reference Range Interpretation Comments AST (test code = AST) 28 See_Comment [Auto mated message] The system which ge nerated this result transmit swathi reference range : <=37. The reference range was not used to interpr et this result as deny l/abnormal. [address]08-05 18:13:00 Test Item Value Reference Range Interpretation Comments Alk Phos (test code = Alk Phos) 231 39-136 [place] [address]-08-05 18:13:00 Test Item Value Reference Range Interpretation Comments Bili Total (test code = Bili Total) 1.0 0.2-1.3 [address]08-05 18:13:00 Test Item Value Reference Range Interpretation Comments AGAP (test code = AGAP) 11.4 10.0-20.0 [facility] [id number] 18:13:00 Test Item Value Reference Range Interpretation Comments B/C Ratio (test code = B/C Ratio) 8 1 6-25 [address]08-05 18:13:00 Test Item Value Reference Range Interpretation Comments Globulin (test code = Globulin) 3.5 2.7-4.2 [facility] [id number] 18:13:00 Test Item Value Reference Range Interpretation Comments A/G Ratio (test code = A/G Ratio) 0.9 1 0.7-1.6 [facility]2022-08-05 18:13:00 Test Item Value Reference Range Interpretation Comments eGFR (test code = eGFR) 9 [facility] GreenvilleWedxagnTHBUJTGKZV9354-91-67 18:13:00 Test Item Value Reference Range Interpretation Comments WBC (test code = WBC) 4.8 3.7-10.4 [place] 796562-08-05 18:13:00 Test Item Value Reference Range Interpretation Comments RBC (test code = RBC) 1.93 4.70-6.10 [place] 796562-08-05 18:13:00 Test Item Value Reference Range Interpretation Comments Hgb (test code = Hgb) 7.2 14.0-18.0 [place] 796562-08-05 18:13:00 Test Item Value Reference Range Interpretation Comments Hct (test code = Hct) 21.2 42.0-54.0 [place] 796562-08-05 18:13:00 Test Item Value Reference Range Interpretation Comments MCV (test code = MCV) 110.1 80.0-94.0 [place] 796562-08-05 18:13:00 Test Item Value Reference Range Interpretation Comments MCH (test code = MCH) 37.1 pg 27.0-31.0 [place] 796562-08-05 18:13:00 Test Item Value Reference Range Interpretation Comments MCHC (test code = MCHC) 33.7 32.0-36.0 [place] 796562-08-05 18:13:00 Test Item Value Reference Range Interpretation Comments RDW (test code = RDW) 25.8 11.5-14.5 [place] [address]-08-05 18:13:00 Test Item Value Reference Range Interpretation Comments Platelet (test code = Platelet) 216 133-450 [facility] GreenvilleRwdihacJKUCINLTAS9480-23-89 18:13:00 Test Item Value Reference Range Interpretation Comments MPV (test code = MPV) 8.2 7.4-10.4 [place] [address]-08-05 18:13:00 Test Item Value Reference Range Interpretation Comments PT (test code = PT) 16.9 s 12.0-14.7 [place] 796562-08-05 18:13:00 Test Item Value Reference Range Interpretation Comments INR (test code = INR) 1.39 1 0.85-1.17 [place] 796562-08-05 18:13:00 Test Item Value Reference Range Interpretation Comments PTT (test code = PTT) 35.0 s 22.9-35.8 [place] [address]-08-05 18:13:00 Test Item Value Reference Range Interpretation Comments Plt Morph (test code = Normal (01/02/22 1:13 PM) Plt Morph) [place] [address]-08-05 18:13:00 Test Item Value Reference Range Interpretation Comments Segs (test code = Segs) 76.4 45.0-75.0 [place] [address]-08-05 18:13:00 Test Item Value Reference Range Interpretation Comments Lymphocytes (test code = Lymphocytes) 14.6 20.0-40.0 [place] [address]-08-05 18:13:00 Test Item Value Reference Range Interpretation Comments Monocytes (test code = Monocytes) 7.5 2.0-12.0 [place] [address]-08-05 18:13:00 Test Item Value Reference Range Interpretation Comments Eosinophils (test code = 0.6 See_Comment [A utomated message] The Eosinophils) system which ge nerated this result tra nsmitted reference range : <=4.0. The reference r samantha was not used to int erpret this result as normal/abnormal . [place] [address]-08-05 18:13:00 Test Item Value Reference Range Interpretation Comments Basophils (test code = 0.9 See_Comment [Aut omated message] The Basophils) system which ge nerated this result tra nsmitted reference range : <=1.0. The reference r samantha was not used to int erpret this result as normal/abnormal . [place] 796562-08-05 18:13:00 Test Item Value Reference Range Interpretation Comments Neutrophils # (test code = Neutrophils 3.7 1.5-8.1 #) [place] [address]-08-05 18:13:00 Test Item Value Reference Range Interpretation Comments Lymphocytes # (test code = Lymphocytes 0.7 1.0-5.5 #) [place] [address]-08-05 18:13:00 Test Item Value Reference Range Interpretation Comments Monocytes # (test code 0.4 See_Comment [Aut omated message] The = Monocytes #) system which generated this result tra nsmitted reference range : <=0.8. The reference r samantha was not used to int erpret this result as normal/abnormal . [facility] GreenvilleDqisuqgSZWVVHOGIX3052-96-01 18:13:00 Test Item Value Reference Range Interpretation Comments Anisocyte (test code = 2+ *ABN*(01/02/22 1:13 Anisocyte) PM) [facility]villeCbqstspGIKYXTCZCH7274-41-88 18:13:00 Test Item Value Reference Range Interpretation Comments Macrocyte (test code = 2+ *ABN*(01/02/22 1:13 Macrocyte) PM) [facility] Center[facility] [id number] 18:13:00 Test Item Value Reference Range Interpretation Comments HS Troponin I (test code = HS Troponin 156 I) [facility]2022-08-05 18:13:00 Test Item Value Reference Range Interpretation Comments Glucose Lvl (test code = Glucose Lvl) 237 70-99 [facility]2022-08-05 18:13:00 Test Item Value Reference Range Interpretation Comments BUN (test code = BUN) 46 7-22 [facility]2022-08-05 18:13:00 Test Item Value Reference Range Interpretation Comments Creatinine Lvl (test code = Creatinine 5.92 0.50-1.40 Lvl) [facility]2022-08-05 18:13:00 Test Item Value Reference Range Interpretation Comments Sodium Lvl (test code = Sodium Lvl) 134 135-145 [facility]2022-08-05 18:13:00 Test Item Value Reference Range Interpretation Comments Potassium Lvl (test code = Potassium 4.4 3.5-5.1 Lvl) [facility]2022-08-05 18:13:00 Test Item Value Reference Range Interpretation Comments Chloride Lvl (test code = Chloride Lvl) 98 95-109 [facility]2022-08-05 18:13:00 Test Item Value Reference Range Interpretation Comments CO2 (test code = CO2) 29 24-32 [facility]2022-08-05 18:13:00 Test Item Value Reference Range Interpretation Comments Calcium Lvl (test code = Calcium Lvl) 9.2 8.5-10.5 [facility] [id number] 18:13:00 Test Item Value Reference Range Interpretation Comments Total Protein (test code = Total 6.6 6.4-8.4 Protein) [facility] [id number] 18:13:00 Test Item Value Reference Range Interpretation Comments Albumin Lvl (test code = Albumin Lvl) 3.1 3.5-5.0 [facility] [id number] 18:13:00 Test Item Value Reference Range Interpretation Comments ALT (test code = ALT) 36 See_Comment [Auto mated message] The system which ge nerated this result transmit swathi reference range : <=65. The reference range was not used to interpr et this result as deny l/abnormal. [facility] [id number] 18:13:00 Test Item Value Reference Range Interpretation Comments AST (test code = AST) 28 See_Comment [Auto mated message] The system which ge nerated this result transmit swathi reference range : <=37. The reference range was not used to interpr et this result as deny l/abnormal. [facility] [employer] [id number] 18:13:00 Test Item Value Reference Range Interpretation Comments Alk Phos (test code = Alk Phos) 231 39-[address] [facility] [employer] [id number] 18:13:00 Test Item Value Reference Range Interpretation Comments Bili Total (test code = Bili Total) 1.0 0.2-1.[address] [facility] [employer] [id number] 18:13:00 Test Item Value Reference Range Interpretation Comments AGAP (test code = AGAP) 11.4 10.0-20.0 [facility] [id number] 18:13:00 Test Item Value Reference Range Interpretation Comments B/C Ratio (test code = B/C Ratio) 8 1 6-25 [facility] [id number] 18:13:00 Test Item Value Reference Range Interpretation Comments Globulin (test code = Globulin) 3.5 2.7-4.[address] [facility] [employer] [id number] 18:13:00 Test Item Value Reference Range Interpretation Comments A/G Ratio (test code = A/G Ratio) 0.9 1 0.7-1.6 [facility]2022-08-05 18:13:00 Test Item Value Reference Range Interpretation Comments eGFR (test code = eGFR) 9 [place] [address]-08-05 18:13:00 Test Item Value Reference Range Interpretation Comments WBC (test code = WBC) 4.8 3.7-10.4 [place] 796562-08-05 18:13:00 Test Item Value Reference Range Interpretation Comments RBC (test code = RBC) 1.93 4.70-6.10 [place] 796562-08-05 18:13:00 Test Item Value Reference Range Interpretation Comments Hgb (test code = Hgb) 7.2 14.0-18.0 [place] 796562-08-05 18:13:00 Test Item Value Reference Range Interpretation Comments Hct (test code = Hct) 21.2 42.0-54.0 [place] 796562-08-05 18:13:00 Test Item Value Reference Range Interpretation Comments MCV (test code = MCV) 110.1 80.0-94.0 [place] 796562-08-05 18:13:00 Test Item Value Reference Range Interpretation Comments MCH (test code = MCH) 37.1 pg 27.0-31.0 [place] 796562-08-05 18:13:00 Test Item Value Reference Range Interpretation Comments MCHC (test code = MCHC) 33.7 32.0-36.0 [facility] GreenvillePegajuwLGFUQMYGHT4583-54-15 18:13:00 Test Item Value Reference Range Interpretation Comments RDW (test code = RDW) 25.8 11.5-14.5 [place] [address]6562-08-05 18:13:00 Test Item Value Reference Range Interpretation Comments Platelet (test code = Platelet) 216 133-450 [facility] GreenvilleHqzxzzyPJTNDCKOMH4270-84-66 18:13:00 Test Item Value Reference Range Interpretation Comments MPV (test code = MPV) 8.2 7.4-10.4 [place] 796562-08-05 18:13:00 Test Item Value Reference Range Interpretation Comments PT (test code = PT) 16.9 s 12.0-14.7 [facility] GreenvilleGgdsxxrAJBHHVXKDH8230-14-44 18:13:00 Test Item Value Reference Range Interpretation Comments INR (test code = INR) 1.39 1 0.85-1.17 [place] [address]-08-05 18:13:00 Test Item Value Reference Range Interpretation Comments PTT (test code = PTT) 35.0 s 22.9-35.8 [place] [address]-08-05 18:13:00 Test Item Value Reference Range Interpretation Comments Plt Morph (test code = Normal (01/02/22 1:13 PM) Plt Morph) [place] [address]-08-05 18:13:00 Test Item Value Reference Range Interpretation Comments Segs (test code = Segs) 76.4 45.0-75.0 [place] [address]-08-05 18:13:00 Test Item Value Reference Range Interpretation Comments Lymphocytes (test code = Lymphocytes) 14.6 20.0-40.0 [place] [address]-08-05 18:13:00 Test Item Value Reference Range Interpretation Comments Monocytes (test code = Monocytes) 7.5 2.0-12.0 [place] [address]-08-05 18:13:00 Test Item Value Reference Range Interpretation Comments Eosinophils (test code = 0.6 See_Comment [A utomated message] The Eosinophils) system which ge nerated this result tra nsmitted reference range : <=4.0. The reference r samantha was not used to int erpret this result as normal/abnormal . [place] [address]-08-05 18:13:00 Test Item Value Reference Range Interpretation Comments Basophils (test code = 0.9 See_Comment [Aut omated message] The Basophils) system which ge nerated this result tra nsmitted reference range : <=1.0. The reference r samantha was not used to int erpret this result as normal/abnormal . [place] [address]-08-05 18:13:00 Test Item Value Reference Range Interpretation Comments Neutrophils # (test code = Neutrophils 3.7 1.5-8.1 #) [place] [address]-08-05 18:13:00 Test Item Value Reference Range Interpretation Comments Lymphocytes # (test code = Lymphocytes 0.7 1.0-5.5 #) [place] [address]-08-05 18:13:00 Test Item Value Reference Range Interpretation Comments Monocytes # (test code 0.4 See_Comment [Aut omated message] The = Monocytes #) system which generated this result tra nsmitted reference range : <=0.8. The reference r samantha was not used to int erpret this result as normal/abnormal . [facility] SurgeryNfowejzTPVAXAHXJM0880-68-51 18:13:00 Test Item Value Reference Range Interpretation Comments Anisocyte (test code = 2+ *ABN*(01/02/22 1:13 Anisocyte) PM) [facility] SurgeryFlzuodbYTBSVREAGY9220-35-44 18:13:00 Test Item Value Reference Range Interpretation Comments Macrocyte (test code = 2+ *ABN*(01/02/22 1:13 Macrocyte) PM) [facility] [id number] 18:13:00 Test Item Value Reference Range Interpretation Comments HS Troponin I (test code = HS Troponin 156 I) [facility] [id number] 18:13:00 Test Item Value Reference Range Interpretation Comments Glucose Lvl (test code = Glucose Lvl) 237 70-99 [facility] [id number] 18:13:00 Test Item Value Reference Range Interpretation Comments BUN (test code = BUN) 46 7-22 [facility] [id number] 18:13:00 Test Item Value Reference Range Interpretation Comments Creatinine Lvl (test code = Creatinine 5.92 0.50-1.40 Lvl) [facility] [id number] 18:13:00 Test Item Value Reference Range Interpretation Comments Sodium Lvl (test code = Sodium Lvl) 134 135-145 [facility] [id number] 18:13:00 Test Item Value Reference Range Interpretation Comments Potassium Lvl (test code = Potassium 4.4 3.5-5.1 Lvl) [facility] [id number] 18:13:00 Test Item Value Reference Range Interpretation Comments Chloride Lvl (test code = Chloride Lvl) 98 95-109 [facility] [id number] 18:13:00 Test Item Value Reference Range Interpretation Comments CO2 (test code = CO2) 29 24-32 [facility] [id number] 18:13:00 Test Item Value Reference Range Interpretation Comments Calcium Lvl (test code = Calcium Lvl) 9.2 8.5-10.5 [facility] [id number] 18:13:00 Test Item Value Reference Range Interpretation Comments Total Protein (test code = Total 6.6 6.4-8.4 Protein) [address]08-05 18:13:00 Test Item Value Reference Range Interpretation Comments Albumin Lvl (test code = Albumin Lvl) 3.1 3.5-5.0 [facility] [facility] [id number] 18:13:00 Test Item Value Reference Range Interpretation Comments ALT (test code = ALT) 36 See_Comment [Auto mated message] The system which ge nerated this result transmit swathi reference range : <=65. The reference range was not used to interpr et this result as deny l/abnormal. [facility] [id number] 18:13:00 Test Item Value Reference Range Interpretation Comments AST (test code = AST) 28 See_Comment [Auto mated message] The system which ge nerated this result transmit swathi reference range : <=37. The reference range was not used to interpr et this result as deny l/abnormal. [facility] [id number] 18:13:00 Test Item Value Reference Range Interpretation Comments Alk Phos (test code = Alk Phos) 231 39-136 [facility] [id number] 18:13:00 Test Item Value Reference Range Interpretation Comments Bili Total (test code = Bili Total) 1.0 0.2-1.3 [facility] [id number] 18:13:00 Test Item Value Reference Range Interpretation Comments AGAP (test code = AGAP) 11.4 10.0-20.0 [facility] [id number] 18:13:00 Test Item Value Reference Range Interpretation Comments B/C Ratio (test code = B/C Ratio) 8 1 6-25 [facility] [id number] 18:13:00 Test Item Value Reference Range Interpretation Comments Globulin (test code = Globulin) 3.5 2.7-4.2 [facility] [id number] 18:13:00 Test Item Value Reference Range Interpretation Comments A/G Ratio (test code = A/G Ratio) 0.9 1 0.7-1.6 [facility] [id number] 18:13:00 Test Item Value Reference Range Interpretation Comments eGFR (test code = eGFR) 9 [place] [address]-08-05 18:13:00 Test Item Value Reference Range Interpretation Comments WBC (test code = WBC) 4.8 3.7-10.4 [place] [address]-08-05 18:13:00 Test Item Value Reference Range Interpretation Comments RBC (test code = RBC) 1.93 4.70-6.10 [place] [address]-08-05 18:13:00 Test Item Value Reference Range Interpretation Comments Hgb (test code = Hgb) 7.2 14.0-18.0 [place] [address]-08-05 18:13:00 Test Item Value Reference Range Interpretation Comments Hct (test code = Hct) 21.2 42.0-54.0 [place] [address]-08-05 18:13:00 Test Item Value Reference Range Interpretation Comments MCV (test code = MCV) 110.1 80.0-94.0 [place] [address]-08-05 18:13:00 Test Item Value Reference Range Interpretation Comments MCH (test code = MCH) 37.1 pg 27.0-31.0 [place] [address]-08-05 18:13:00 Test Item Value Reference Range Interpretation Comments MCHC (test code = MCHC) 33.7 32.0-36.0 [place] [address]-08-05 18:13:00 Test Item Value Reference Range Interpretation Comments RDW (test code = RDW) 25.8 11.5-14.5 [place] [address]-08-05 18:13:00 Test Item Value Reference Range Interpretation Comments Platelet (test code = Platelet) 216 133-450 [place] [address]-08-05 18:13:00 Test Item Value Reference Range Interpretation Comments MPV (test code = MPV) 8.2 7.4-10.4 [place] [address]-08-05 18:13:00 Test Item Value Reference Range Interpretation Comments PT (test code = PT) 16.9 s 12.0-14.7 [place] [address]-08-05 18:13:00 Test Item Value Reference Range Interpretation Comments INR (test code = INR) 1.39 1 0.85-1.17 [place] [address]-08-05 18:13:00 Test Item Value Reference Range Interpretation Comments PTT (test code = PTT) 35.0 s 22.9-35.8 [place] [address]-08-05 18:13:00 Test Item Value Reference Range Interpretation Comments Plt Morph (test code = Normal (01/02/22 1:13 PM) Plt Morph) [place] [address]-08-05 18:13:00 Test Item Value Reference Range Interpretation Comments Segs (test code = Segs) 76.4 45.0-75.0 [place] [address]-08-05 18:13:00 Test Item Value Reference Range Interpretation Comments Lymphocytes (test code = Lymphocytes) 14.6 20.0-40.0 [place] [address]-08-05 18:13:00 Test Item Value Reference Range Interpretation Comments Monocytes (test code = Monocytes) 7.5 2.0-12.0 [place] [address]-08-05 18:13:00 Test Item Value Reference Range Interpretation Comments Eosinophils (test code = 0.6 See_Comment [A utomated message] The Eosinophils) system which ge nerated this result tra nsmitted reference range : <=4.0. The reference r samantha was not used to int erpret this result as normal/abnormal . [place] [address]-08-05 18:13:00 Test Item Value Reference Range Interpretation Comments Basophils (test code = 0.9 See_Comment [Aut omated message] The Basophils) system which ge nerated this result tra nsmitted reference range : <=1.0. The reference r samantha was not used to int erpret this result as normal/abnormal . [place] [address]-08-05 18:13:00 Test Item Value Reference Range Interpretation Comments Neutrophils # (test code = Neutrophils 3.7 1.5-8.1 #) [place] [address]-08-05 18:13:00 Test Item Value Reference Range Interpretation Comments Lymphocytes # (test code = Lymphocytes 0.7 1.0-5.5 #) [place] [address]-08-05 18:13:00 Test Item Value Reference Range Interpretation Comments Monocytes # (test code 0.4 See_Comment [Aut omated message] The = Monocytes #) system which generated this result tra nsmitted reference range : <=0.8. The reference r samantha was not used to int erpret this result as normal/abnormal . [facility] [id number] 18:13:00 Test Item Value Reference Range Interpretation Comments Anisocyte (test code = 2+ *ABN*(01/02/22 1:13 Anisocyte) PM) [facility] SurgeryDyxqujmUGULNXIDXR9031-20-32 18:13:00 Test Item Value Reference Range Interpretation Comments Macrocyte (test code = 2+ *ABN*(01/02/22 1:13 Macrocyte) PM) [facility] [id number] 18:13:00 Test Item Value Reference Range Interpretation Comments HS Troponin I (test code = HS Troponin 156 I) [facility]2022-08-05 18:13:00 Test Item Value Reference Range Interpretation Comments Glucose Lvl (test code = Glucose Lvl) 237 70-99 [facility]2022-08-05 18:13:00 Test Item Value Reference Range Interpretation Comments BUN (test code = BUN) 46 7-22 [facility]2022-08-05 18:13:00 Test Item Value Reference Range Interpretation Comments Creatinine Lvl (test code = Creatinine 5.92 0.50-1.40 Lvl) [facility]2022-08-05 18:13:00 Test Item Value Reference Range Interpretation Comments Sodium Lvl (test code = Sodium Lvl) 134 135-145 [facility]2022-08-05 18:13:00 Test Item Value Reference Range Interpretation Comments Potassium Lvl (test code = Potassium 4.4 3.5-5.1 Lvl) [facility]2022-08-05 18:13:00 Test Item Value Reference Range Interpretation Comments Chloride Lvl (test code = Chloride Lvl) 98 95-109 [facility]2022-08-05 18:13:00 Test Item Value Reference Range Interpretation Comments CO2 (test code = CO2) 29 24-32 [facility]2022-08-05 18:13:00 Test Item Value Reference Range Interpretation Comments Calcium Lvl (test code = Calcium Lvl) 9.2 8.5-10.5 [facility]2022-08-05 18:13:00 Test Item Value Reference Range Interpretation Comments Total Protein (test code = Total 6.6 6.4-8.4 Protein) [facility] [id number] 18:13:00 Test Item Value Reference Range Interpretation Comments Albumin Lvl (test code = Albumin Lvl) 3.1 3.5-5.0 [facility] [id number] 18:13:00 Test Item Value Reference Range Interpretation Comments ALT (test code = ALT) 36 See_Comment [Auto mated message] The system which ge nerated this result transmit swathi reference range : <=65. The reference range was not used to interpr et this result as deny l/abnormal. [facility] [id number] 18:13:00 Test Item Value Reference Range Interpretation Comments AST (test code = AST) 28 See_Comment [Auto mated message] The system which ge nerated this result transmit swathi reference range : <=37. The reference range was not used to interpr et this result as deny l/abnormal. [facility] [id number] 18:13:00 Test Item Value Reference Range Interpretation Comments Alk Phos (test code = Alk Phos) 231 39-136 [facility] [id number] 18:13:00 Test Item Value Reference Range Interpretation Comments Bili Total (test code = Bili Total) 1.0 0.2-1.3 [facility] [id number] 18:13:00 Test Item Value Reference Range Interpretation Comments AGAP (test code = AGAP) 11.4 10.0-20.0 [facility] [id number] 18:13:00 Test Item Value Reference Range Interpretation Comments B/C Ratio (test code = B/C Ratio) 8 1 6-25 [facility] [id number] 18:13:00 Test Item Value Reference Range Interpretation Comments Globulin (test code = Globulin) 3.5 2.7-4.2 [facility] [id number] 18:13:00 Test Item Value Reference Range Interpretation Comments A/G Ratio (test code = A/G Ratio) 0.9 1 0.7-1.6 [facility] [id number] 18:13:00 Test Item Value Reference Range Interpretation Comments eGFR (test code = eGFR) 9 [facility]villeSxjuruxYCIKPJNCKT5475-12-82 18:13:00 Test Item Value Reference Range Interpretation Comments WBC (test code = WBC) 4.8 3.7-10.4 [facility] GreenvilleKevsjfgLYIZFJGZJI8784-35-19 18:13:00 Test Item Value Reference Range Interpretation Comments RBC (test code = RBC) 1.93 4.70-6.10 [facility] GreenvilleWfjfhtuFAEKXPVHGM8434-87-91 18:13:00 Test Item Value Reference Range Interpretation Comments Hgb (test code = Hgb) 7.2 14.0-18.0 [facility] GreenvilleEifmnooGEMVQRHLFN8972-91-05 18:13:00 Test Item Value Reference Range Interpretation Comments Hct (test code = Hct) 21.2 42.0-54.0 [facility] GreenvilleJzzatxlNOVNZSZULX8772-06-43 18:13:00 Test Item Value Reference Range Interpretation Comments MCV (test code = MCV) 110.1 80.0-94.0 [facility] GreenvilleEphzpvmZBMHSQQIFW5104-56-21 18:13:00 Test Item Value Reference Range Interpretation Comments MCH (test code = MCH) 37.1 pg 27.0-31.0 [facility] GreenvilleDavdspmTQUBBACCJI7800-31-48 18:13:00 Test Item Value Reference Range Interpretation Comments MCHC (test code = MCHC) 33.7 32.0-36.0 [facility] GreenvilleIqsgxyvIIMKKNMHTR9260-52-29 18:13:00 Test Item Value Reference Range Interpretation Comments RDW (test code = RDW) 25.8 11.5-14.5 [facility] GreenvilleRhtmrwgRTZRLAZDXF2122-01-54 18:13:00 Test Item Value Reference Range Interpretation Comments Platelet (test code = Platelet) 216 133-450 [facility] GreenvilleJuofpbcLAMWFYZSEI5002-11-88 18:13:00 Test Item Value Reference Range Interpretation Comments MPV (test code = MPV) 8.2 7.4-10.4 [place] [address]62-08-05 18:13:00 Test Item Value Reference Range Interpretation Comments PT (test code = PT) 16.9 s 12.0-14.7 [facility] GreenvilleSozbdacZACPYXNVKR4918-23-55 18:13:00 Test Item Value Reference Range Interpretation Comments INR (test code = INR) 1.39 1 0.85-1.17 [facility] GreenvilleXntpfniKCGLIDWDUO9826-36-31 18:13:00 Test Item Value Reference Range Interpretation Comments PTT (test code = PTT) 35.0 s 22.9-35.8 [facility] GreenvilleKdbrdaxSKLGXATLAY8205-80-03 18:13:00 Test Item Value Reference Range Interpretation Comments Plt Morph (test code = Normal (01/02/22 1:13 PM) Plt Morph) [facility] GreenvilleEdhbwbxUWGQXCDSBW8300-18-77 18:13:00 Test Item Value Reference Range Interpretation Comments Segs (test code = Segs) 76.4 45.0-75.0 [facility] GreenvilleDowfcvnRSHYBYRLCU3222-87-89 18:13:00 Test Item Value Reference Range Interpretation Comments Lymphocytes (test code = Lymphocytes) 14.6 20.0-40.0 [facility] GreenvilleQkynoldXCKCXRKWNO1792-35-17 18:13:00 Test Item Value Reference Range Interpretation Comments Monocytes (test code = Monocytes) 7.5 2.0-12.0 [facility] GreenvilleOjbwquhRFXKTGPGAO6508-63-82 18:13:00 Test Item Value Reference Range Interpretation Comments Eosinophils (test code = 0.6 See_Comment [A utomated message] The Eosinophils) system which ge nerated this result tra nsmitted reference range : <=4.0. The reference r samantha was not used to int erpret this result as normal/abnormal . [facility] GreenvilleKnnztqvOLWILPETNO2213-51-26 18:13:00 Test Item Value Reference Range Interpretation Comments Basophils (test code = 0.9 See_Comment [Aut omated message] The Basophils) system which ge nerated this result tra nsmitted reference range : <=1.0. The reference r samantha was not used to int erpret this result as normal/abnormal . [facility] GreenvillePeikatnRHTNUGXNZF1138-33-01 18:13:00 Test Item Value Reference Range Interpretation Comments Neutrophils # (test code = Neutrophils 3.7 1.5-8.1 #) [place] 796562-08-05 18:13:00 Test Item Value Reference Range Interpretation Comments Lymphocytes # (test code = Lymphocytes 0.7 1.0-5.5 #) [place] 796562-08-05 18:13:00 Test Item Value Reference Range Interpretation Comments Monocytes # (test code 0.4 See_Comment [Aut omated message] The = Monocytes #) system which generated this result tra nsmitted reference range : <=0.8. The reference r samantha was not used to int erpret this result as normal/abnormal . [facility] SurgeryNmtzumaFBHMPMFPJM3031-75-22 18:13:00 Test Item Value Reference Range Interpretation Comments Anisocyte (test code = 2+ *ABN*(01/02/22 1:13 Anisocyte) PM) [facility] SurgeryTqutglcHMTJWPBUCN7838-85-67 18:13:00 Test Item Value Reference Range Interpretation Comments Macrocyte (test code = 2+ *ABN*(01/02/22 1:13 Macrocyte) PM) [facility] CenterC[facility] [id number] 18:13:00 Test Item Value Reference Range Interpretation Comments HS Troponin I (test code = HS Troponin 156 I) [facility]2022-08-05 18:13:00 Test Item Value Reference Range Interpretation Comments Glucose Lvl (test code = Glucose Lvl) 237 70-99 [facility]2022-08-05 18:13:00 Test Item Value Reference Range Interpretation Comments BUN (test code = BUN) 46 7-22 [facility]2022-08-05 18:13:00 Test Item Value Reference Range Interpretation Comments Creatinine Lvl (test code = Creatinine 5.92 0.50-1.40 Lvl) [facility]2022-08-05 18:13:00 Test Item Value Reference Range Interpretation Comments Sodium Lvl (test code = Sodium Lvl) 134 135-145 [facility]2022-08-05 18:13:00 Test Item Value Reference Range Interpretation Comments Potassium Lvl (test code = Potassium 4.4 3.5-5.1 Lvl) [facility]2022-08-05 18:13:00 Test Item Value Reference Range Interpretation Comments Chloride Lvl (test code = Chloride Lvl) 98 95-109 [facility]2022-08-05 18:13:00 Test Item Value Reference Range Interpretation Comments CO2 (test code = CO2) 29 24-32 [facility]2022-08-05 18:13:00 Test Item Value Reference Range Interpretation Comments Calcium Lvl (test code = Calcium Lvl) 9.2 8.5-10.5 [facility]2022-08-05 18:13:00 Test Item Value Reference Range Interpretation Comments Total Protein (test code = Total 6.6 6.4-8.4 Protein) [address]08-05 18:13:00 Test Item Value Reference Range Interpretation Comments Albumin Lvl (test code = Albumin Lvl) 3.1 3.5-5.0 [address]08-05 18:13:00 Test Item Value Reference Range Interpretation Comments ALT (test code = ALT) 36 See_Comment [Auto mated message] The system which ge nerated this result transmit swathi reference range : <=65. The reference range was not used to interpr et this result as deny l/abnormal. [address]08-05 18:13:00 Test Item Value Reference Range Interpretation Comments AST (test code = AST) 28 See_Comment [Auto mated message] The system which ge nerated this result transmit swathi reference range : <=37. The reference range was not used to interpr et this result as deny l/abnormal. [place] [address]-08-05 18:13:00 Test Item Value Reference Range Interpretation Comments Alk Phos (test code = Alk Phos) 231 39-136 [place] [address]-08-05 18:13:00 Test Item Value Reference Range Interpretation Comments Bili Total (test code = Bili Total) 1.0 0.2-1.3 [place] [address]-08-05 18:13:00 Test Item Value Reference Range Interpretation Comments AGAP (test code = AGAP) 11.4 10.0-20.0 [place] [address]392-08-05 18:13:00 Test Item Value Reference Range Interpretation Comments B/C Ratio (test code = B/C Ratio) 8 1 6-25 [address]08-05 18:13:00 Test Item Value Reference Range Interpretation Comments Globulin (test code = Globulin) 3.5 2.7-4.2 [place] [address]-08-05 18:13:00 Test Item Value Reference Range Interpretation Comments A/G Ratio (test code = A/G Ratio) 0.9 1 0.7-1.6 [place] [address]-08-05 18:13:00 Test Item Value Reference Range Interpretation Comments eGFR (test code = eGFR) 9 [place] 796562-08-05 18:13:00 Test Item Value Reference Range Interpretation Comments WBC (test code = WBC) 4.8 3.7-10.4 [facility] GreenvilleYdfmqytOJRDPTPWHM2721-81-51 18:13:00 Test Item Value Reference Range Interpretation Comments RBC (test code = RBC) 1.93 4.70-6.10 [facility] GreenvilleEyrchdxMWGJSBHGMS9530-31-00 18:13:00 Test Item Value Reference Range Interpretation Comments Hgb (test code = Hgb) 7.2 14.0-18.0 [facility] GreenvilleUmhnoeyFPBQUDYLQV2242-63-94 18:13:00 Test Item Value Reference Range Interpretation Comments Hct (test code = Hct) 21.2 42.0-54.0 [facility] GreenvilleBmxafouQDOSKBCNYT3414-63-80 18:13:00 Test Item Value Reference Range Interpretation Comments MCV (test code = MCV) 110.1 80.0-94.0 [facility] GreenvilleWzoiylrCGTOOIOQET3557-05-80 18:13:00 Test Item Value Reference Range Interpretation Comments MCH (test code = MCH) 37.1 pg 27.0-31.0 [facility] GreenvilleMkygwndEFQQJCFPYS2536-16-71 18:13:00 Test Item Value Reference Range Interpretation Comments MCHC (test code = MCHC) 33.7 32.0-36.0 [facility] GreenvilleLkrjmmmDLVKYVQPZS4849-69-31 18:13:00 Test Item Value Reference Range Interpretation Comments RDW (test code = RDW) 25.8 11.5-14.5 [facility] GreenvilleKsrgovtPUYNQMKHUZ8112-01-27 18:13:00 Test Item Value Reference Range Interpretation Comments Platelet (test code = Platelet) 216 133-450 [facility] GreenvilleQvarekfUMDXBIMINC0008-34-04 18:13:00 Test Item Value Reference Range Interpretation Comments MPV (test code = MPV) 8.2 7.4-10.4 [facility] GreenvilleRwixtixFXXYBXMUQW6532-84-18 18:13:00 Test Item Value Reference Range Interpretation Comments PT (test code = PT) 16.9 s 12.0-14.7 [facility] GreenvilleIedaapgXPWSHCKFXM8962-33-89 18:13:00 Test Item Value Reference Range Interpretation Comments INR (test code = INR) 1.39 1 0.85-1.17 [facility] GreenvilleNfcoyabJCGTRUURWA0057-92-38 18:13:00 Test Item Value Reference Range Interpretation Comments PTT (test code = PTT) 35.0 s 22.9-35.8 [place] [address]-08-05 18:13:00 Test Item Value Reference Range Interpretation Comments Plt Morph (test code = Normal (01/02/22 1:13 PM) Plt Morph) [place] [address]-08-05 18:13:00 Test Item Value Reference Range Interpretation Comments Segs (test code = Segs) 76.4 45.0-75.0 [place] [address]-08-05 18:13:00 Test Item Value Reference Range Interpretation Comments Lymphocytes (test code = Lymphocytes) 14.6 20.0-40.0 [place] [address]-08-05 18:13:00 Test Item Value Reference Range Interpretation Comments Monocytes (test code = Monocytes) 7.5 2.0-12.0 [place] [address]-08-05 18:13:00 Test Item Value Reference Range Interpretation Comments Eosinophils (test code = 0.6 See_Comment [A utomated message] The Eosinophils) system which ge nerated this result tra nsmitted reference range : <=4.0. The reference r samantha was not used to int erpret this result as normal/abnormal . [place] [address]-08-05 18:13:00 Test Item Value Reference Range Interpretation Comments Basophils (test code = 0.9 See_Comment [Aut omated message] The Basophils) system which ge nerated this result tra nsmitted reference range : <=1.0. The reference r samantha was not used to int erpret this result as normal/abnormal . [place] 796562-08-05 18:13:00 Test Item Value Reference Range Interpretation Comments Neutrophils # (test code = Neutrophils 3.7 1.5-8.1 #) [place] [address]-08-05 18:13:00 Test Item Value Reference Range Interpretation Comments Lymphocytes # (test code = Lymphocytes 0.7 1.0-5.5 #) [place] [address]-08-05 18:13:00 Test Item Value Reference Range Interpretation Comments Monocytes # (test code 0.4 See_Comment [Aut omated message] The = Monocytes #) system which generated this result tra nsmitted reference range : <=0.8. The reference r samantha was not used to int erpret this result as normal/abnormal . [place] [address]-08-05 18:13:00 Test Item Value Reference Range Interpretation Comments Anisocyte (test code = 2+ *ABN*(01/02/22 1:13 Anisocyte) PM) [address]08-05 18:13:00 Test Item Value Reference Range Interpretation Comments Macrocyte (test code = 2+ *ABN*(01/02/22 1:13 Macrocyte) PM) [place] 509392-07-19 09:29:00 Test Item Value Reference Range Interpretation Comments Glucose Lvl (test code = Glucose Lvl) 199 70-99 [place] 509392-07-19 09:29:00 Test Item Value Reference Range Interpretation Comments BUN (test code = BUN) 28 7- [place] 509392-07-19 09:29:00 Test Item Value Reference Range Interpretation Comments Creatinine Lvl (test code = Creatinine 4.84 0.50-1.40 Lvl) [place] 509392-07-19 09:29:00 Test Item Value Reference Range Interpretation Comments Sodium Lvl (test code = Sodium Lvl) 134 135-145 [place] 509392-07-19 09:29:00 Test Item Value Reference Range Interpretation Comments Potassium Lvl (test code = Potassium 4.3 3.5-5.1 Lvl) [place] 509392-07-19 09:29:00 Test Item Value Reference Range Interpretation Comments Chloride Lvl (test code = Chloride Lvl) 100 95-109 [place] 509392-07-19 09:29:00 Test Item Value Reference Range Interpretation Comments CO2 (test code = CO2) 28 24-32 [place] 509392-07-19 09:29:00 Test Item Value Reference Range Interpretation Comments Calcium Lvl (test code = Calcium Lvl) 9.4 8.5-10.5 [place] 509392-07-19 09:29:00 Test Item Value Reference Range Interpretation Comments Total Protein (test code = Total 6.6 6.4-8.4 Protein) [place] 509392-07-19 09:29:00 Test Item Value Reference Range Interpretation Comments Albumin Lvl (test code = Albumin Lvl) 3.0 3.5-5.0 [facility] KMNXR9389-88-44 09:29:00 Test Item Value Reference Range Interpretation Comments ALT (test code = ALT) 92 See_Comment [Auto mated message] The system which ge nerated this result transmit swathi reference range : <=65. The reference range was not used to interpr et this result as deny l/abnormal. [facility] [id number] 09:29:00 Test Item Value Reference Range Interpretation Comments AST (test code = AST) 123 See_Comment [Auto mated message] The system which ge nerated this result transmit swathi reference range : <=37. The reference range was not used to interpr et this result as deny l/abnormal. [facility] [employer] [id number] 09:29:00 Test Item Value Reference Range Interpretation Comments Alk Phos (test code = Alk Phos) 272 39-136 [facility] ORFJI9104-17-05 09:29:00 Test Item Value Reference Range Interpretation Comments Bili Total (test code = Bili Total) 0.9 0.2-1.3 [facility] KWBYC7332-58-52 09:29:00 Test Item Value Reference Range Interpretation Comments AGAP (test code = AGAP) 10.3 10.0-20.0 [facility] [employer] [id number] 09:29:00 Test Item Value Reference Range Interpretation Comments B/C Ratio (test code = B/C Ratio) 6 1 6-25 [facility] [id number] 09:29:00 Test Item Value Reference Range Interpretation Comments Globulin (test code = Globulin) 3.6 2.7-4.[address] [facility] [employer] [id number] 09:29:00 Test Item Value Reference Range Interpretation Comments A/G Ratio (test code = A/G Ratio) 0.8 1 0.7-1.6 [facility] [id number] 09:29:00 Test Item Value Reference Range Interpretation Comments eGFR (test code = eGFR) 12 [facility] [id number] 09:29:00 Test Item Value Reference Range Interpretation Comments Phosphorus (test code = Phosphorus) 4.3 2.5-4.5 [facility]villeEqjjjroLJVISWKDFZ5358-40-94 09:29:00 Test Item Value Reference Range Interpretation Comments WBC (test code = WBC) 4.7 3.7-10.4 [facility] GreenvilleDjhiuxoNLUBIUQQJW6400-53-80 09:29:00 Test Item Value Reference Range Interpretation Comments RBC (test code = RBC) 2.14 4.70-6.10 [facility] GreenvilleYdmkqksPEZWNYSZBM8687-22-87 09:29:00 Test Item Value Reference Range Interpretation Comments Hgb (test code = Hgb) 7.6 14.0-18.0 [facility] GreenvilleMaenudoKGXEBWJTLN0873-99-60 09:29:00 Test Item Value Reference Range Interpretation Comments Hct (test code = Hct) 22.8 42.0-54.0 [facility] GreenvilleYtsmfxsGPGKHVWZYT7246-35-30 09:29:00 Test Item Value Reference Range Interpretation Comments MCV (test code = MCV) 106.6 80.0-94.0 [facility] GreenvilleRfrakzlBGNZLKMKYK0010-04-91 09:29:00 Test Item Value Reference Range Interpretation Comments MCH (test code = MCH) 35.6 pg 27.0-31.0 [facility] GreenvilleVtnpsvdITZTXXWVYA2267-51-81 09:29:00 Test Item Value Reference Range Interpretation Comments MCHC (test code = MCHC) 33.4 32.0-36.0 [facility] GreenvilleAoabacfLRZKQKFWNP1088-72-48 09:29:00 Test Item Value Reference Range Interpretation Comments RDW (test code = RDW) 24.3 11.5-14.5 [facility] GreenvilleRlvgrwnVLMRUPZPNP7301-66-99 09:29:00 Test Item Value Reference Range Interpretation Comments Platelet (test code = Platelet) 148 133-450 [facility] GreenvilleLdoaxtjADBIUWXKNU8940-05-85 09:29:00 Test Item Value Reference Range Interpretation Comments MPV (test code = MPV) 8.1 7.4-10.4 [facility] GreenvilleVsgqcduMRRUIMLDDQ9039-75-55 09:29:00 Test Item Value Reference Range Interpretation Comments D-Dimer (test code = D-Dimer) 3.63 [facility] GreenvilleZxszfmhLWAIQEWZSE6401-96-14 09:29:00 Test Item Value Reference Range Interpretation Comments Segs (test code = Segs) 74.8 45.0-75.0 [place] 796562-07-19 09:29:00 Test Item Value Reference Range Interpretation Comments Lymphocytes (test code = Lymphocytes) 15.5 20.0-40.0 [place] 796562-07-19 09:29:00 Test Item Value Reference Range Interpretation Comments Monocytes (test code = Monocytes) 9.5 2.0-12.0 [facility] GreenvilleFzeuapkUHZGBPRKJN0896-65-52 09:29:00 Test Item Value Reference Range Interpretation Comments Basophils (test code = 0.2 See_Comment [Aut omated message] The Basophils) system which ge nerated this result tra nsmitted reference range : <=1.0. The reference r samantha was not used to int erpret this result as normal/abnormal . [facility] GreenvilleZtecbqdNUVVEPHWCF6048-79-76 09:29:00 Test Item Value Reference Range Interpretation Comments Neutrophils # (test code = Neutrophils 3.5 1.5-8.1 #) [facility] GreenvilleEufhjnbNHNLOGIAUY1663-83-62 09:29:00 Test Item Value Reference Range Interpretation Comments Lymphocytes # (test code = Lymphocytes 0.7 1.0-5.5 #) [facility] GreenvilleIhtbpywMEZGLJHBJV5508-30-31 09:29:00 Test Item Value Reference Range Interpretation Comments Monocytes # (test code 0.4 See_Comment [Aut omated message] The = Monocytes #) system which generated this result tra nsmitted reference range : <=0.8. The reference r samantha was not used to int erpret this result as normal/abnormal . [facility] GreenvilleJiugriiDRPXXTIYJB6365-17-93 09:29:00 Test Item Value Reference Range Interpretation Comments Macrocyte (test code = 1+ *ABN*(12/16/21 Macrocyte) 4:29 AM) [facility] CenterReseztwNAZUOSYUWW5422-31-13 09:29:00 Test Item Value Reference Range Interpretation Comments C-REACTIVE PROTEIN (test code = 19.0 C-REACTIVE PROTEIN) [facility] CenterPlayground Energy [id number] 09:29:00 Test Item Value Reference Range Interpretation Comments Glucose Lvl (test code = Glucose Lvl) 199 70-99 [facility]2022-07-19 09:29:00 Test Item Value Reference Range Interpretation Comments BUN (test code = BUN) 28 12-19 [place] 509392-07-19 09:29:00 Test Item Value Reference Range Interpretation Comments Creatinine Lvl (test code = Creatinine 4.84 0.50-1.40 Lvl) [facility]2022-07-19 09:29:00 Test Item Value Reference Range Interpretation Comments Sodium Lvl (test code = Sodium Lvl) 134 135-145 [place] 509392-07-19 09:29:00 Test Item Value Reference Range Interpretation Comments Potassium Lvl (test code = Potassium 4.3 3.5-5.1 Lvl) [place] 509392-07-19 09:29:00 Test Item Value Reference Range Interpretation Comments Chloride Lvl (test code = Chloride Lvl) 100 95-109 [place] 509392-07-19 09:29:00 Test Item Value Reference Range Interpretation Comments CO2 (test code = CO2) 28 24-32 [place] 509392-07-19 09:29:00 Test Item Value Reference Range Interpretation Comments Calcium Lvl (test code = Calcium Lvl) 9.4 8.5-10.5 [place] 509392-07-19 09:29:00 Test Item Value Reference Range Interpretation Comments Total Protein (test code = Total 6.6 6.4-8.4 Protein) [place] 509392-07-19 09:29:00 Test Item Value Reference Range Interpretation Comments Albumin Lvl (test code = Albumin Lvl) 3.0 3.5-5.0 [place] 509392-07-19 09:29:00 Test Item Value Reference Range Interpretation Comments ALT (test code = ALT) 92 See_Comment [Auto mated message] The system which ge nerated this result transmit swathi reference range : <=65. The reference range was not used to interpr et this result as deny l/abnormal. [place] 509392-07-19 09:29:00 Test Item Value Reference Range Interpretation Comments Glucose Lvl (test code = Glucose Lvl) 199 70-99 [place] 509392-07-19 09:29:00 Test Item Value Reference Range Interpretation Comments BUN (test code = BUN) 28 7-22 [place] 509392-07-19 09:29:00 Test Item Value Reference Range Interpretation Comments Creatinine Lvl (test code = Creatinine 4.84 0.50-1.40 Lvl) [place] 509392-07-19 09:29:00 Test Item Value Reference Range Interpretation Comments Sodium Lvl (test code = Sodium Lvl) 134 135-145 [place] 509392-07-19 09:29:00 Test Item Value Reference Range Interpretation Comments AST (test code = AST) 123 See_Comment [Auto mated message] The system which ge nerated this result transmit swathi reference range : <=37. The reference range was not used to interpr et this result as deny l/abnormal. [place] 509392-07-19 09:29:00 Test Item Value Reference Range Interpretation Comments Potassium Lvl (test code = Potassium 4.3 3.5-5.1 Lvl) [place] 509392-07-19 09:29:00 Test Item Value Reference Range Interpretation Comments Chloride Lvl (test code = Chloride Lvl) 100 95-109 [facility] [id number] 09:29:00 Test Item Value Reference Range Interpretation Comments CO2 (test code = CO2) 28 24-32 [facility] [id number] 09:29:00 Test Item Value Reference Range Interpretation Comments Calcium Lvl (test code = Calcium Lvl) 9.4 8.5-10.5 [facility] [id number] 09:29:00 Test Item Value Reference Range Interpretation Comments Total Protein (test code = Total 6.6 6.4-8.4 Protein) [place] [address]-07-19 09:29:00 Test Item Value Reference Range Interpretation Comments Albumin Lvl (test code = Albumin Lvl) 3.0 3.5-5.0 [facility] HospitalFlynnLANCE VILLE [address]SMBYM2316-36-30 09:29:00 Test Item Value Reference Range Interpretation Comments ALT (test code = ALT) 92 See_Comment [Auto mated message] The system which ge nerated this result transmit swathi reference range : <=65. The reference range was not used to interpr et this result as deny l/abnormal. [facility] [id number] 09:29:00 Test Item Value Reference Range Interpretation Comments AST (test code = AST) 123 See_Comment [Auto mated message] The system which ge nerated this result transmit swathi reference range : <=37. The reference range was not used to interpr et this result as deny l/abnormal. [facility] FUAGW7150-01-20 09:29:00 Test Item Value Reference Range Interpretation Comments Alk Phos (test code = Alk Phos) 272 39-136 [facility]2022-07-19 09:29:00 Test Item Value Reference Range Interpretation Comments Bili Total (test code = Bili Total) 0.9 0.2-1.3 [facility]2022-07-19 09:29:00 Test Item Value Reference Range Interpretation Comments Alk Phos (test code = Alk Phos) 272 39-136 [facility]2022-07-19 09:29:00 Test Item Value Reference Range Interpretation Comments AGAP (test code = AGAP) 10.3 10.0-20.0 [facility]2022-07-19 09:29:00 Test Item Value Reference Range Interpretation Comments B/C Ratio (test code = B/C Ratio) 6 1 6-25 [place] 509392-07-19 09:29:00 Test Item Value Reference Range Interpretation Comments Globulin (test code = Globulin) 3.6 2.7-4.2 [facility]2022-07-19 09:29:00 Test Item Value Reference Range Interpretation Comments A/G Ratio (test code = A/G Ratio) 0.8 1 0.7-1.6 [place] 509392-07-19 09:29:00 Test Item Value Reference Range Interpretation Comments eGFR (test code = eGFR) 12 [facility]2022-07-19 09:29:00 Test Item Value Reference Range Interpretation Comments Phosphorus (test code = Phosphorus) 4.3 2.5-4.5 [facility]villeMfikyrxROPKVQZHMD4928-43-57 09:29:00 Test Item Value Reference Range Interpretation Comments WBC (test code = WBC) 4.7 3.7-10.4 [place] 796562-07-19 09:29:00 Test Item Value Reference Range Interpretation Comments RBC (test code = RBC) 2.14 4.70-6.10 [place] 796562-07-19 09:29:00 Test Item Value Reference Range Interpretation Comments Hgb (test code = Hgb) 7.6 14.0-18.0 [place] [address]-07-19 09:29:00 Test Item Value Reference Range Interpretation Comments Hct (test code = Hct) 22.8 42.0-54.0 [place] [address]-07-19 09:29:00 Test Item Value Reference Range Interpretation Comments Bili Total (test code = Bili Total) 0.9 0.2-1.3 [facility] GreenvilleGtqihraVBLKODFAOM7282-34-02 09:29:00 Test Item Value Reference Range Interpretation Comments MCV (test code = MCV) 106.6 80.0-94.0 [facility] GreenvilleWrcjffuOJWXIPMVPV3564-35-24 09:29:00 Test Item Value Reference Range Interpretation Comments MCH (test code = MCH) 35.6 pg 27.0-31.0 [facility] GreenvilleAyqmujiORNMRPJPAV0962-34-40 09:29:00 Test Item Value Reference Range Interpretation Comments MCHC (test code = MCHC) 33.4 32.0-36.0 [facility] GreenvilleCvlydjzCGNRUBJASD4844-17-16 09:29:00 Test Item Value Reference Range Interpretation Comments RDW (test code = RDW) 24.3 11.5-14.5 [facility] GreenvilleRpwrjuuRFQWLSRAZR0897-62-00 09:29:00 Test Item Value Reference Range Interpretation Comments Platelet (test code = Platelet) 148 133-450 [facility] GreenvilleHalwdibPNKQRXLZUJ0101-31-22 09:29:00 Test Item Value Reference Range Interpretation Comments MPV (test code = MPV) 8.1 7.4-10.4 [facility] GreenvilleWdheqknOKGKNFXAKT0326-46-18 09:29:00 Test Item Value Reference Range Interpretation Comments D-Dimer (test code = D-Dimer) 3.63 [facility] GreenvilleNwqjlkvQJGZZUSOJU9756-90-60 09:29:00 Test Item Value Reference Range Interpretation Comments Segs (test code = Segs) 74.8 45.0-75.0 [facility] GreenvilleAcrnajzVCEOINEIRZ0617-52-22 09:29:00 Test Item Value Reference Range Interpretation Comments Lymphocytes (test code = Lymphocytes) 15.5 20.0-40.0 [facility] GreenvilleMpducyhHAMHYVMZQG1300-97-01 09:29:00 Test Item Value Reference Range Interpretation Comments Monocytes (test code = Monocytes) 9.5 2.0-12.0 [facility]2022-07-19 09:29:00 Test Item Value Reference Range Interpretation Comments AGAP (test code = AGAP) 10.3 10.0-20.0 [facility] GreenvilleBsrbuaaLOLMFUMCLI7610-91-48 09:29:00 Test Item Value Reference Range Interpretation Comments Basophils (test code = 0.2 See_Comment [Aut omated message] The Basophils) system which ge nerated this result tra nsmitted reference range : <=1.0. The reference r samantha was not used to int erpret this result as normal/abnormal . [facility] CenterWrvfcjoYNQIYRIAHI5090-42-65 09:29:00 Test Item Value Reference Range Interpretation Comments Neutrophils # (test code = Neutrophils 3.5 1.5-8.1 #) [facility] SurgeryLyalatoBWUUDOLUQP2910-85-59 09:29:00 Test Item Value Reference Range Interpretation Comments Lymphocytes # (test code = Lymphocytes 0.7 1.0-5.5 #) [facility] GreenvilleLdfqkgpRFINQFQJXY6680-40-27 09:29:00 Test Item Value Reference Range Interpretation Comments Monocytes # (test code 0.4 See_Comment [Aut omated message] The = Monocytes #) system which generated this result tra nsmitted reference range : <=0.8. The reference r samantha was not used to int erpret this result as normal/abnormal . [facility] CenterCeqaauyASALFOVPBK6124-26-57 09:29:00 Test Item Value Reference Range Interpretation Comments Macrocyte (test code = 1+ *ABN*(12/16/21 Macrocyte) 4:29 AM) [facility] CenterZslbsonVUMYJELMKR6777-37-54 09:29:00 Test Item Value Reference Range Interpretation Comments C-REACTIVE PROTEIN (test code = 19.0 C-REACTIVE PROTEIN) [facility] [id number] 09:29:00 Test Item Value Reference Range Interpretation Comments B/C Ratio (test code = B/C Ratio) 6 1 6-25 [facility] [id number] 09:29:00 Test Item Value Reference Range Interpretation Comments Globulin (test code = Globulin) 3.6 2.7-4.2 [facility] [id number] 09:29:00 Test Item Value Reference Range Interpretation Comments A/G Ratio (test code = A/G Ratio) 0.8 1 0.7-1.6 [facility] [id number] 09:29:00 Test Item Value Reference Range Interpretation Comments eGFR (test code = eGFR) 12 [facility] [id number] 09:29:00 Test Item Value Reference Range Interpretation Comments Phosphorus (test code = Phosphorus) 4.3 2.5-4.5 [facility] GreenvilleUcuioyzCUHAGCQOJM1820-12-03 09:29:00 Test Item Value Reference Range Interpretation Comments WBC (test code = WBC) 4.7 3.7-10.4 [facility] GreenvilleHvmnrorAASTZUCLZO4199-59-19 09:29:00 Test Item Value Reference Range Interpretation Comments RBC (test code = RBC) 2.14 4.70-6.10 [facility] GreenvilleZjnzyysSKQGRMEHFU1842-60-42 09:29:00 Test Item Value Reference Range Interpretation Comments Hgb (test code = Hgb) 7.6 14.0-18.0 [facility] GreenvillePsaorxuZPSASWDLJT5492-23-08 09:29:00 Test Item Value Reference Range Interpretation Comments Hct (test code = Hct) 22.8 42.0-54.0 [facility] GreenvilleJatdgjyDKERCQZPYQ4757-91-84 09:29:00 Test Item Value Reference Range Interpretation Comments MCV (test code = MCV) 106.6 80.0-94.0 [facility] GreenvilleEdfteajTCBPYQIEHL7914-21-25 09:29:00 Test Item Value Reference Range Interpretation Comments MCH (test code = MCH) 35.6 pg 27.0-31.0 [facility] GreenvilleXhxxvxgXSYMVVIRDO2397-27-58 09:29:00 Test Item Value Reference Range Interpretation Comments MCHC (test code = MCHC) 33.4 32.0-36.0 [facility] GreenvilleBtwtexiDRIFBBKLQR7455-28-95 09:29:00 Test Item Value Reference Range Interpretation Comments RDW (test code = RDW) 24.3 11.5-14.5 [facility] GreenvillePcsddnqLTFDBESTTD9578-78-11 09:29:00 Test Item Value Reference Range Interpretation Comments Platelet (test code = Platelet) 148 133-450 [facility] GreenvilleWidyoulRRYCOJNDEH6527-30-15 09:29:00 Test Item Value Reference Range Interpretation Comments MPV (test code = MPV) 8.1 7.4-10.4 [facility] GreenvilleFqwfsswSLSOULLCIL7144-51-97 09:29:00 Test Item Value Reference Range Interpretation Comments D-Dimer (test code = D-Dimer) 3.63 [facility] GreenvilleBqgmeivZCOQUYQYHL0323-75-21 09:29:00 Test Item Value Reference Range Interpretation Comments Segs (test code = Segs) 74.8 45.0-75.0 [place] [address]-07-19 09:29:00 Test Item Value Reference Range Interpretation Comments Lymphocytes (test code = Lymphocytes) 15.5 20.0-40.0 [facility] GreenvilleNuksgnfMFBKQGQVLX8008-92-69 09:29:00 Test Item Value Reference Range Interpretation Comments Monocytes (test code = Monocytes) 9.5 2.0-12.0 [facility] GreenvilleLcrwzzlULJSQCQCSC0984-96-83 09:29:00 Test Item Value Reference Range Interpretation Comments Basophils (test code = 0.2 See_Comment [Aut omated message] The Basophils) system which ge nerated this result tra nsmitted reference range : <=1.0. The reference r samantha was not used to int erpret this result as normal/abnormal . [facility] GreenvilleIinaybkMUQINCTOZL2102-97-06 09:29:00 Test Item Value Reference Range Interpretation Comments Neutrophils # (test code = Neutrophils 3.5 1.5-8.1 #) [facility] GreenvilleClxegjzNJAWVYJRRF8549-05-16 09:29:00 Test Item Value Reference Range Interpretation Comments Lymphocytes # (test code = Lymphocytes 0.7 1.0-5.5 #) [facility] GreenvilleJhnbtezILPEMGIMLF2283-02-90 09:29:00 Test Item Value Reference Range Interpretation Comments Monocytes # (test code 0.4 See_Comment [Aut omated message] The = Monocytes #) system which generated this result tra nsmitted reference range : <=0.8. The reference r samantha was not used to int erpret this result as normal/abnormal . [facility] GreenvilleOheayzmMRZRRPFSGC6929-05-32 09:29:00 Test Item Value Reference Range Interpretation Comments Macrocyte (test code = 1+ *ABN*(12/16/21 Macrocyte) 4:29 AM) [facility] CenterMyrutebWKUPEPKKZM2846-40-92 09:29:00 Test Item Value Reference Range Interpretation Comments C-REACTIVE PROTEIN (test code = 19.0 C-REACTIVE PROTEIN) [facility] CenterPlay[facility] Energy [id number] 09:29:00 Test Item Value Reference Range Interpretation Comments Glucose Lvl (test code = Glucose Lvl) 199 70-99 [facility]2022-07-19 09:29:00 Test Item Value Reference Range Interpretation Comments BUN (test code = BUN) 28 12-19 [facility] CenterPlay[facility] GYFVV9468-14-95 09:29:00 Test Item Value Reference Range Interpretation Comments Creatinine Lvl (test code = Creatinine 4.84 0.50-1.40 Lvl) [place] 509392-07-19 09:29:00 Test Item Value Reference Range Interpretation Comments Sodium Lvl (test code = Sodium Lvl) 134 135-145 [place] 509392-07-19 09:29:00 Test Item Value Reference Range Interpretation Comments Potassium Lvl (test code = Potassium 4.3 3.5-5.1 Lvl) [place] 509392-07-19 09:29:00 Test Item Value Reference Range Interpretation Comments Chloride Lvl (test code = Chloride Lvl) 100 95-109 [place] 509392-07-19 09:29:00 Test Item Value Reference Range Interpretation Comments CO2 (test code = CO2) 28 24-32 [place] 509392-07-19 09:29:00 Test Item Value Reference Range Interpretation Comments Calcium Lvl (test code = Calcium Lvl) 9.4 8.5-10.5 [place] 509392-07-19 09:29:00 Test Item Value Reference Range Interpretation Comments Total Protein (test code = Total 6.6 6.4-8.4 Protein) [place] 509392-07-19 09:29:00 Test Item Value Reference Range Interpretation Comments Albumin Lvl (test code = Albumin Lvl) 3.0 3.5-5.0 [place] 509392-07-19 09:29:00 Test Item Value Reference Range Interpretation Comments ALT (test code = ALT) 92 See_Comment [Auto mated message] The system which ge nerated this result transmit swathi reference range : <=65. The reference range was not used to interpr et this result as deny l/abnormal. [place] 509392-07-19 09:29:00 Test Item Value Reference Range Interpretation Comments AST (test code = AST) 123 See_Comment [Auto mated message] The system which ge nerated this result transmit swathi reference range : <=37. The reference range was not used to interpr et this result as deny l/abnormal. [place] 509392-07-19 09:29:00 Test Item Value Reference Range Interpretation Comments Alk Phos (test code = Alk Phos) 272 39-136 [place] 509392-07-19 09:29:00 Test Item Value Reference Range Interpretation Comments Bili Total (test code = Bili Total) 0.9 0.2-1.3 [place] 509392-07-19 09:29:00 Test Item Value Reference Range Interpretation Comments AGAP (test code = AGAP) 10.3 10.0-20.0 [place] 509392-07-19 09:29:00 Test Item Value Reference Range Interpretation Comments B/C Ratio (test code = B/C Ratio) 6 1 6-25 [place] 509392-07-19 09:29:00 Test Item Value Reference Range Interpretation Comments Globulin (test code = Globulin) 3.6 2.7-4.2 [place] 509392-07-19 09:29:00 Test Item Value Reference Range Interpretation Comments A/G Ratio (test code = A/G Ratio) 0.8 1 0.7-1.6 [place] 509392-07-19 09:29:00 Test Item Value Reference Range Interpretation Comments eGFR (test code = eGFR) 12 [facility]2022-07-19 09:29:00 Test Item Value Reference Range Interpretation Comments Phosphorus (test code = Phosphorus) 4.3 2.5-4.5 [place] 796562-07-19 09:29:00 Test Item Value Reference Range Interpretation Comments WBC (test code = WBC) 4.7 3.7-10.4 [place] 796562-07-19 09:29:00 Test Item Value Reference Range Interpretation Comments RBC (test code = RBC) 2.14 4.70-6.10 [place] 796562-07-19 09:29:00 Test Item Value Reference Range Interpretation Comments Hgb (test code = Hgb) 7.6 14.0-18.0 [place] [address]-07-19 09:29:00 Test Item Value Reference Range Interpretation Comments Hct (test code = Hct) 22.8 42.0-54.0 [place] 796562-07-19 09:29:00 Test Item Value Reference Range Interpretation Comments MCV (test code = MCV) 106.6 80.0-94.0 [place] 796562-07-19 09:29:00 Test Item Value Reference Range Interpretation Comments MCH (test code = MCH) 35.6 pg 27.0-31.0 [facility] GreenvilleLgsnvxaZTBWDSQLXY3488-40-86 09:29:00 Test Item Value Reference Range Interpretation Comments MCHC (test code = MCHC) 33.4 32.0-36.0 [place] 796562-07-19 09:29:00 Test Item Value Reference Range Interpretation Comments RDW (test code = RDW) 24.3 11.5-14.5 [facility] GreenvilleHozwmhsHQCPSQCFGV8425-13-86 09:29:00 Test Item Value Reference Range Interpretation Comments Platelet (test code = Platelet) 148 133-450 [facility] GreenvilleAleuwxsUYFYMRKQMN2960-11-57 09:29:00 Test Item Value Reference Range Interpretation Comments MPV (test code = MPV) 8.1 7.4-10.4 [place] 796562-07-19 09:29:00 Test Item Value Reference Range Interpretation Comments D-Dimer (test code = D-Dimer) 3.63 [facility] GreenvilleVxqgszsUPJLOLGDUL9211-94-44 09:29:00 Test Item Value Reference Range Interpretation Comments Segs (test code = Segs) 74.8 45.0-75.0 [facility] [place]CLU[place]MF5741-58-47 09:29:00 Test Item Value Reference Range Interpretation Comments Lymphocytes (test code = Lymphocytes) 15.5 20.0-40.0 [place] 796562-07-19 09:29:00 Test Item Value Reference Range Interpretation Comments Monocytes (test code = Monocytes) 9.5 2.0-12.0 [place] 796562-07-19 09:29:00 Test Item Value Reference Range Interpretation Comments Basophils (test code = 0.2 See_Comment [Aut omated message] The Basophils) system which ge nerated this result tra nsmitted reference range : <=1.0. The reference r samantha was not used to int erpret this result as normal/abnormal . [facility]villeJbujnbaKJFCIFBDLX9369-58-56 09:29:00 Test Item Value Reference Range Interpretation Comments Neutrophils # (test code = Neutrophils 3.5 1.5-8.1 #) [facility] [place]villeOgwxmafNKPXHUSQDW5412-95-48 09:29:00 Test Item Value Reference Range Interpretation Comments Lymphocytes # (test code = Lymphocytes 0.7 1.0-5.5 #) [facility] [place]villeVlbvfnfSUFOEYPAAD0516-93-40 09:29:00 Test Item Value Reference Range Interpretation Comments Monocytes # (test code 0.4 See_Comment [Aut omated message] The = Monocytes #) system which generated this result tra nsmitted reference range : <=0.8. The reference r samantha was not used to int erpret this result as normal/abnormal . [facility] [place]villeMrqauyxMHEIFLGQSU2675-23-29 09:29:00 Test Item Value Reference Range Interpretation Comments Macrocyte (test code = 1+ *ABN*(12/16/21 Macrocyte) 4:29 AM) [facility] CenterLmawtypXZKOVMVVYQ1621-56-24 09:29:00 Test Item Value Reference Range Interpretation Comments C-REACTIVE PROTEIN (test code = 19.0 C-REACTIVE PROTEIN) [facility]2022-07-19 09:29:00 Test Item Value Reference Range Interpretation Comments Glucose Lvl (test code = Glucose Lvl) 199 70-99 [facility]2022-07-19 09:29:00 Test Item Value Reference Range Interpretation Comments BUN (test code = BUN) 28 - [place] 509392-07-19 09:29:00 Test Item Value Reference Range Interpretation Comments Creatinine Lvl (test code = Creatinine 4.84 0.50-1.40 Lvl) [facility]2022-07-19 09:29:00 Test Item Value Reference Range Interpretation Comments Sodium Lvl (test code = Sodium Lvl) 134 135-145 [facility]2022-07-19 09:29:00 Test Item Value Reference Range Interpretation Comments Potassium Lvl (test code = Potassium 4.3 3.5-5.1 Lvl) [place] 509392-07-19 09:29:00 Test Item Value Reference Range Interpretation Comments Chloride Lvl (test code = Chloride Lvl) 100 95-109 [facility]2022-07-19 09:29:00 Test Item Value Reference Range Interpretation Comments CO2 (test code = CO2) 28 24-32 [place] 509392-07-19 09:29:00 Test Item Value Reference Range Interpretation Comments Calcium Lvl (test code = Calcium Lvl) 9.4 8.5-10.5 [place] 509392-07-19 09:29:00 Test Item Value Reference Range Interpretation Comments Total Protein (test code = Total 6.6 6.4-8.4 Protein) [facility] CenterPlay[facility] AIJYH8717-19-24 09:29:00 Test Item Value Reference Range Interpretation Comments Albumin Lvl (test code = Albumin Lvl) 3.0 3.5-5.0 [facility] [id number] 09:29:00 Test Item Value Reference Range Interpretation Comments ALT (test code = ALT) 92 See_Comment [Auto mated message] The system which ge nerated this result transmit swathi reference range : <=65. The reference range was not used to interpr et this result as deny l/abnormal. [facility] [employer] [id number] 09:29:00 Test Item Value Reference Range Interpretation Comments AST (test code = AST) 123 See_Comment [Auto mated message] The system which ge nerated this result transmit swathi reference range : <=37. The reference range was not used to interpr et this result as deny l/abnormal. [facility] [employer] [id number] 09:29:00 Test Item Value Reference Range Interpretation Comments Alk Phos (test code = Alk Phos) 272 39-[address] [facility] [employer] [id number] 09:29:00 Test Item Value Reference Range Interpretation Comments Bili Total (test code = Bili Total) 0.9 0.2-1.3 [facility] [id number] 09:29:00 Test Item Value Reference Range Interpretation Comments AGAP (test code = AGAP) 10.3 10.0-20.[address] [facility] [employer] [id number] 09:29:00 Test Item Value Reference Range Interpretation Comments B/C Ratio (test code = B/C Ratio) 6 1 6-25 [facility] [id number] 09:29:00 Test Item Value Reference Range Interpretation Comments Globulin (test code = Globulin) 3.6 2.7-4.2 [facility] [id number] 09:29:00 Test Item Value Reference Range Interpretation Comments A/G Ratio (test code = A/G Ratio) 0.8 1 0.7-1.6 [facility] [id number] 09:29:00 Test Item Value Reference Range Interpretation Comments eGFR (test code = eGFR) 12 [facility]2022-07-19 09:29:00 Test Item Value Reference Range Interpretation Comments Phosphorus (test code = Phosphorus) 4.3 2.5-4.5 [facility] [place]villeOazcvsmEUDRMAZNRA9692-10-50 09:29:00 Test Item Value Reference Range Interpretation Comments WBC (test code = WBC) 4.7 3.7-10.4 [facility] GreenvilleFjudqjkAFEIEJKJCZ0550-61-58 09:29:00 Test Item Value Reference Range Interpretation Comments RBC (test code = RBC) 2.14 4.70-6.10 [facility] [place]villeZqhjpuhMHJPYZHVPG0934-34-20 09:29:00 Test Item Value Reference Range Interpretation Comments Hgb (test code = Hgb) 7.6 14.0-18.0 [facility] [place]villeAlvdxbjXTBCYZXCPM2587-52-01 09:29:00 Test Item Value Reference Range Interpretation Comments Hct (test code = Hct) 22.8 42.0-54.0 [facility] GreenvilleTrwrbciXUQUAMKGIP5891-05-39 09:29:00 Test Item Value Reference Range Interpretation Comments MCV (test code = MCV) 106.6 80.0-94.0 [facility] GreenvilleIljfdleOLGMGKVISL6005-84-55 09:29:00 Test Item Value Reference Range Interpretation Comments MCH (test code = MCH) 35.6 pg 27.0-31.0 [facility] GreenvilleQhvzatnTKMFNXMSCO3167-44-62 09:29:00 Test Item Value Reference Range Interpretation Comments MCHC (test code = MCHC) 33.4 32.0-36.0 [facility] GreenvilleTmyhytiRNXYZDMHQF3330-91-50 09:29:00 Test Item Value Reference Range Interpretation Comments RDW (test code = RDW) 24.3 11.5-14.5 [facility] GreenvilleZdylfvqACXOEINUNU8389-66-72 09:29:00 Test Item Value Reference Range Interpretation Comments Platelet (test code = Platelet) 148 133-450 [facility] GreenvilleQjtbdrlPXBBKXNPFY6382-62-54 09:29:00 Test Item Value Reference Range Interpretation Comments MPV (test code = MPV) 8.1 7.4-10.4 [facility] GreenvilleLuhndnaIKUDXPMIOT2307-07-54 09:29:00 Test Item Value Reference Range Interpretation Comments D-Dimer (test code = D-Dimer) 3.63 [facility] GreenvilleNzmobulUNUXBXFVWA2038-09-01 09:29:00 Test Item Value Reference Range Interpretation Comments Segs (test code = Segs) 74.8 45.0-75.0 [facility] GreenvilleMmzqyacYEJFAFJLWM8002-65-69 09:29:00 Test Item Value Reference Range Interpretation Comments Lymphocytes (test code = Lymphocytes) 15.5 20.0-40.0 [facility] GreenvilleDecieppZFIEKGUWYE9079-35-90 09:29:00 Test Item Value Reference Range Interpretation Comments Monocytes (test code = Monocytes) 9.5 2.0-12.0 [facility] GreenvilleAipmpptAWBYEVWTYI0152-44-89 09:29:00 Test Item Value Reference Range Interpretation Comments Basophils (test code = 0.2 See_Comment [Aut omated message] The Basophils) system which ge nerated this result tra nsmitted reference range : <=1.0. The reference r samantha was not used to int erpret this result as normal/abnormal . [facility] GreenvilleNmlemdiJHSRCWTLKT9558-92-01 09:29:00 Test Item Value Reference Range Interpretation Comments Neutrophils # (test code = Neutrophils 3.5 1.5-8.1 #) [facility] [place]villeEdvklcbQOURMSSHTA6600-07-56 09:29:00 Test Item Value Reference Range Interpretation Comments Lymphocytes # (test code = Lymphocytes 0.7 1.0-5.5 #) [facility] CenterDuvgeyiCOTZWUXQLO6739-28-26 09:29:00 Test Item Value Reference Range Interpretation Comments Monocytes # (test code 0.4 See_Comment [Aut omated message] The = Monocytes #) system which generated this result tra nsmitted reference range : <=0.8. The reference r samantha was not used to int erpret this result as normal/abnormal . [facility] CenterIwzrjrqJCMLATMMGB3635-40-23 09:29:00 Test Item Value Reference Range Interpretation Comments Macrocyte (test code = 1+ *ABN*(12/16/21 Macrocyte) 4:29 AM) [facility] CenterOgexszxPYIRTYDTKY4850-93-18 09:29:00 Test Item Value Reference Range Interpretation Comments C-REACTIVE PROTEIN (test code = 19.0 C-REACTIVE PROTEIN) [facility] CenterPlay[facility] Energy [id number] 09:29:00 Test Item Value Reference Range Interpretation Comments Glucose Lvl (test code = Glucose Lvl) 199 70-99 [facility] Center[facility] [id number] 09:29:00 Test Item Value Reference Range Interpretation Comments BUN (test code = BUN) 28 7-22 [place] 509392-07-19 09:29:00 Test Item Value Reference Range Interpretation Comments Creatinine Lvl (test code = Creatinine 4.84 0.50-1.40 Lvl) [place] 509392-07-19 09:29:00 Test Item Value Reference Range Interpretation Comments Sodium Lvl (test code = Sodium Lvl) 134 135-145 [place] 509392-07-19 09:29:00 Test Item Value Reference Range Interpretation Comments Potassium Lvl (test code = Potassium 4.3 3.5-5.1 Lvl) [place] [address]-07-19 09:29:00 Test Item Value Reference Range Interpretation Comments Chloride Lvl (test code = Chloride Lvl) 100 95-109 [place] 509392-07-19 09:29:00 Test Item Value Reference Range Interpretation Comments CO2 (test code = CO2) 28 24-32 [place] 509392-07-19 09:29:00 Test Item Value Reference Range Interpretation Comments Calcium Lvl (test code = Calcium Lvl) 9.4 8.5-10.5 [place] 509392-07-19 09:29:00 Test Item Value Reference Range Interpretation Comments Total Protein (test code = Total 6.6 6.4-8.4 Protein) [place] 509392-07-19 09:29:00 Test Item Value Reference Range Interpretation Comments Albumin Lvl (test code = Albumin Lvl) 3.0 3.5-5.0 [place] 509392-07-19 09:29:00 Test Item Value Reference Range Interpretation Comments ALT (test code = ALT) 92 See_Comment [Auto mated message] The system which ge nerated this result transmit swathi reference range : <=65. The reference range was not used to interpr et this result as deny l/abnormal. [place] 509392-07-19 09:29:00 Test Item Value Reference Range Interpretation Comments AST (test code = AST) 123 See_Comment [Auto mated message] The system which ge nerated this result transmit swathi reference range : <=37. The reference range was not used to interpr et this result as deny l/abnormal. [address]07-19 09:29:00 Test Item Value Reference Range Interpretation Comments Alk Phos (test code = Alk Phos) 272 39-136 [place] 509392-07-19 09:29:00 Test Item Value Reference Range Interpretation Comments Bili Total (test code = Bili Total) 0.9 0.2-1.3 [place] 509392-07-19 09:29:00 Test Item Value Reference Range Interpretation Comments AGAP (test code = AGAP) 10.3 10.0-20.0 [place] 509392-07-19 09:29:00 Test Item Value Reference Range Interpretation Comments B/C Ratio (test code = B/C Ratio) 6 1 6-25 [place] [address]-07-19 09:29:00 Test Item Value Reference Range Interpretation Comments Globulin (test code = Globulin) 3.6 2.7-4.2 [place] 509392-07-19 09:29:00 Test Item Value Reference Range Interpretation Comments A/G Ratio (test code = A/G Ratio) 0.8 1 0.7-1.6 [place] 509392-07-19 09:29:00 Test Item Value Reference Range Interpretation Comments eGFR (test code = eGFR) 12 [place] 509392-07-19 09:29:00 Test Item Value Reference Range Interpretation Comments Phosphorus (test code = Phosphorus) 4.3 2.5-4.5 [place] 796562-07-19 09:29:00 Test Item Value Reference Range Interpretation Comments WBC (test code = WBC) 4.7 3.7-10.4 [place] 796562-07-19 09:29:00 Test Item Value Reference Range Interpretation Comments RBC (test code = RBC) 2.14 4.70-6.10 [place] [address]-07-19 09:29:00 Test Item Value Reference Range Interpretation Comments Hgb (test code = Hgb) 7.6 14.0-18.0 [place] [address]-07-19 09:29:00 Test Item Value Reference Range Interpretation Comments Hct (test code = Hct) 22.8 42.0-54.0 [place] 796562-07-19 09:29:00 Test Item Value Reference Range Interpretation Comments MCV (test code = MCV) 106.6 80.0-94.0 [place] 796562-07-19 09:29:00 Test Item Value Reference Range Interpretation Comments MCH (test code = MCH) 35.6 pg 27.0-31.0 [place] 796562-07-19 09:29:00 Test Item Value Reference Range Interpretation Comments MCHC (test code = MCHC) 33.4 32.0-36.0 [place] 796562-07-19 09:29:00 Test Item Value Reference Range Interpretation Comments RDW (test code = RDW) 24.3 11.5-14.5 [place] 796562-07-19 09:29:00 Test Item Value Reference Range Interpretation Comments Platelet (test code = Platelet) 148 133-450 [place] 796562-07-19 09:29:00 Test Item Value Reference Range Interpretation Comments MPV (test code = MPV) 8.1 7.4-10.4 [place] 796562-07-19 09:29:00 Test Item Value Reference Range Interpretation Comments D-Dimer (test code = D-Dimer) 3.63 [place] 796562-07-19 09:29:00 Test Item Value Reference Range Interpretation Comments Segs (test code = Segs) 74.8 45.0-75.0 [place] 796562-07-19 09:29:00 Test Item Value Reference Range Interpretation Comments Lymphocytes (test code = Lymphocytes) 15.5 20.0-40.0 [place] 796562-07-19 09:29:00 Test Item Value Reference Range Interpretation Comments Monocytes (test code = Monocytes) 9.5 2.0-12.0 [place] [address]-07-19 09:29:00 Test Item Value Reference Range Interpretation Comments Basophils (test code = 0.2 See_Comment [Aut omated message] The Basophils) system which ge nerated this result tra nsmitted reference range : <=1.0. The reference r samantha was not used to int erpret this result as normal/abnormal . [place] 796562-07-19 09:29:00 Test Item Value Reference Range Interpretation Comments Neutrophils # (test code = Neutrophils 3.5 1.5-8.1 #) [place] 796562-07-19 09:29:00 Test Item Value Reference Range Interpretation Comments Lymphocytes # (test code = Lymphocytes 0.7 1.0-5.5 #) [place] 796562-07-19 09:29:00 Test Item Value Reference Range Interpretation Comments Monocytes # (test code 0.4 See_Comment [Aut omated message] The = Monocytes #) system which generated this result tra nsmitted reference range : <=0.8. The reference r samantha was not used to int erpret this result as normal/abnormal . [place] 796562-07-19 09:29:00 Test Item Value Reference Range Interpretation Comments Macrocyte (test code = 1+ *ABN*(12/16/21 Macrocyte) 4:29 AM) [place] 735922-07-19 09:29:00 Test Item Value Reference Range Interpretation Comments C-REACTIVE PROTEIN (test code = 19.0 C-REACTIVE PROTEIN) [facility]2022-07-19 09:29:00 Test Item Value Reference Range Interpretation Comments Glucose Lvl (test code = Glucose Lvl) 199 70-99 [facility]2022-07-19 09:29:00 Test Item Value Reference Range Interpretation Comments BUN (test code = BUN) 28 7-22 [place] 509392-07-19 09:29:00 Test Item Value Reference Range Interpretation Comments Creatinine Lvl (test code = Creatinine 4.84 0.50-1.40 Lvl) [place] 509392-07-19 09:29:00 Test Item Value Reference Range Interpretation Comments Sodium Lvl (test code = Sodium Lvl) 134 135-145 [place] 509392-07-19 09:29:00 Test Item Value Reference Range Interpretation Comments Potassium Lvl (test code = Potassium 4.3 3.5-5.1 Lvl) [place] 509392-07-19 09:29:00 Test Item Value Reference Range Interpretation Comments Chloride Lvl (test code = Chloride Lvl) 100 95-109 [place] 509392-07-19 09:29:00 Test Item Value Reference Range Interpretation Comments CO2 (test code = CO2) 28 24-32 [place] 509392-07-19 09:29:00 Test Item Value Reference Range Interpretation Comments Calcium Lvl (test code = Calcium Lvl) 9.4 8.5-10.5 [place] 509392-07-19 09:29:00 Test Item Value Reference Range Interpretation Comments Total Protein (test code = Total 6.6 6.4-8.4 Protein) [place] 509392-07-19 09:29:00 Test Item Value Reference Range Interpretation Comments Albumin Lvl (test code = Albumin Lvl) 3.0 3.5-5.0 [place] 509392-07-19 09:29:00 Test Item Value Reference Range Interpretation Comments ALT (test code = ALT) 92 See_Comment [Auto mated message] The system which ge nerated this result transmit swathi reference range : <=65. The reference range was not used to interpr et this result as deny l/abnormal. [place] 509392-07-19 09:29:00 Test Item Value Reference Range Interpretation Comments AST (test code = AST) 123 See_Comment [Auto mated message] The system which ge nerated this result transmit swathi reference range : <=37. The reference range was not used to interpr et this result as deny l/abnormal. [place] 509392-07-19 09:29:00 Test Item Value Reference Range Interpretation Comments Alk Phos (test code = Alk Phos) 272 39-136 [place] 509392-07-19 09:29:00 Test Item Value Reference Range Interpretation Comments Bili Total (test code = Bili Total) 0.9 0.2-1.3 [place] 509392-07-19 09:29:00 Test Item Value Reference Range Interpretation Comments AGAP (test code = AGAP) 10.3 10.0-20.0 [place] [address]-07-19 09:29:00 Test Item Value Reference Range Interpretation Comments B/C Ratio (test code = B/C Ratio) 6 1 6-25 [place] 509392-07-19 09:29:00 Test Item Value Reference Range Interpretation Comments Globulin (test code = Globulin) 3.6 2.7-4.2 [place] 509392-07-19 09:29:00 Test Item Value Reference Range Interpretation Comments A/G Ratio (test code = A/G Ratio) 0.8 1 0.7-1.6 [facility]2022-07-19 09:29:00 Test Item Value Reference Range Interpretation Comments eGFR (test code = eGFR) 12 [facility]2022-07-19 09:29:00 Test Item Value Reference Range Interpretation Comments Phosphorus (test code = Phosphorus) 4.3 2.5-4.5 [facility] GreenvilleOtmzhkkAKXKYYDDIC1317-52-69 09:29:00 Test Item Value Reference Range Interpretation Comments WBC (test code = WBC) 4.7 3.7-10.4 [facility] GreenvilleKtzawlhCPODLDWYEF9186-53-53 09:29:00 Test Item Value Reference Range Interpretation Comments RBC (test code = RBC) 2.14 4.70-6.10 [facility] GreenvilleEzpghoyMJYWXMCAOH2539-86-97 09:29:00 Test Item Value Reference Range Interpretation Comments Hgb (test code = Hgb) 7.6 14.0-18.0 [facility] GreenvilleGwsxceiHMMXGJCXMW2067-46-95 09:29:00 Test Item Value Reference Range Interpretation Comments Hct (test code = Hct) 22.8 42.0-54.0 [facility] GreenvilleHdoqwrpCLYWOKQRPF2961-56-78 09:29:00 Test Item Value Reference Range Interpretation Comments MCV (test code = MCV) 106.6 80.0-94.0 [facility] GreenvilleTmqbnueYAWVRBIKFV6015-20-30 09:29:00 Test Item Value Reference Range Interpretation Comments MCH (test code = MCH) 35.6 pg 27.0-31.0 [facility] GreenvilleHezxdfaPGKYCWNZUL3392-67-98 09:29:00 Test Item Value Reference Range Interpretation Comments MCHC (test code = MCHC) 33.4 32.0-36.0 [facility] GreenvilleNgvlmkhDZEAXSTESK2267-94-20 09:29:00 Test Item Value Reference Range Interpretation Comments RDW (test code = RDW) 24.3 11.5-14.5 [facility] GreenvilleAwyqvcoPADOXPKDCC3760-80-16 09:29:00 Test Item Value Reference Range Interpretation Comments Platelet (test code = Platelet) 148 133-450 [facility] GreenvilleTwouwtfGDOBKOWVNG2135-67-72 09:29:00 Test Item Value Reference Range Interpretation Comments MPV (test code = MPV) 8.1 7.4-10.4 [place] 796562-07-19 09:29:00 Test Item Value Reference Range Interpretation Comments D-Dimer (test code = D-Dimer) 3.63 [facility] GreenvilleSegtltjFQABRSQBKE0995-77-16 09:29:00 Test Item Value Reference Range Interpretation Comments Segs (test code = Segs) 74.8 45.0-75.0 [facility] GreenvilleYqsjoubXFUODUFOUM3348-95-61 09:29:00 Test Item Value Reference Range Interpretation Comments Lymphocytes (test code = Lymphocytes) 15.5 20.0-40.0 [facility] GreenvilleRotkbedZGFHPZMKLF9140-02-46 09:29:00 Test Item Value Reference Range Interpretation Comments Monocytes (test code = Monocytes) 9.5 2.0-12.0 [facility] GreenvilleFozgexwDZGBXWTUNE7799-61-04 09:29:00 Test Item Value Reference Range Interpretation Comments Basophils (test code = 0.2 See_Comment [Aut omated message] The Basophils) system which ge nerated this result tra nsmitted reference range : <=1.0. The reference r samantha was not used to int erpret this result as normal/abnormal . [facility] GreenvilleMjvysceLWFRPKXVCX5614-22-85 09:29:00 Test Item Value Reference Range Interpretation Comments Neutrophils # (test code = Neutrophils 3.5 1.5-8.1 #) [facility] GreenvilleXebvfslDQVRMJCQZH5992-25-44 09:29:00 Test Item Value Reference Range Interpretation Comments Lymphocytes # (test code = Lymphocytes 0.7 1.0-5.5 #) [facility] GreenvilleDaanvohGZFXXUJRTC1773-29-83 09:29:00 Test Item Value Reference Range Interpretation Comments Monocytes # (test code 0.4 See_Comment [Aut omated message] The = Monocytes #) system which generated this result tra nsmitted reference range : <=0.8. The reference r samantha was not used to int erpret this result as normal/abnormal . [facility] GreenvilleXtuswhyHFRJHWBBKI4238-36-77 09:29:00 Test Item Value Reference Range Interpretation Comments Macrocyte (test code = 1+ *ABN*(12/16/21 Macrocyte) 4:29 AM) [facility] ClubEkslsgnTXLPBCMKOU1923-12-50 09:29:00 Test Item Value Reference Range Interpretation Comments C-REACTIVE PROTEIN (test code = 19.0 C-REACTIVE PROTEIN) [facility]2022-07-19 09:29:00 Test Item Value Reference Range Interpretation Comments Glucose Lvl (test code = Glucose Lvl) 199 70-99 [place] 509392-07-19 09:29:00 Test Item Value Reference Range Interpretation Comments BUN (test code = BUN) 28 7-22 [place] 509392-07-19 09:29:00 Test Item Value Reference Range Interpretation Comments Creatinine Lvl (test code = Creatinine 4.84 0.50-1.40 Lvl) [place] 509392-07-19 09:29:00 Test Item Value Reference Range Interpretation Comments Sodium Lvl (test code = Sodium Lvl) 134 135-145 [place] [address]-07-19 09:29:00 Test Item Value Reference Range Interpretation Comments Potassium Lvl (test code = Potassium 4.3 3.5-5.1 Lvl) [place] 509392-07-19 09:29:00 Test Item Value Reference Range Interpretation Comments Chloride Lvl (test code = Chloride Lvl) 100 95-109 [place] 509392-07-19 09:29:00 Test Item Value Reference Range Interpretation Comments CO2 (test code = CO2) 28 24-32 [place] 509392-07-19 09:29:00 Test Item Value Reference Range Interpretation Comments Calcium Lvl (test code = Calcium Lvl) 9.4 8.5-10.5 [place] 509392-07-19 09:29:00 Test Item Value Reference Range Interpretation Comments Total Protein (test code = Total 6.6 6.4-8.4 Protein) [place] 509392-07-19 09:29:00 Test Item Value Reference Range Interpretation Comments Albumin Lvl (test code = Albumin Lvl) 3.0 3.5-5.0 [place] 509392-07-19 09:29:00 Test Item Value Reference Range Interpretation Comments ALT (test code = ALT) 92 See_Comment [Auto mated message] The system which ge nerated this result transmit swathi reference range : <=65. The reference range was not used to interpr et this result as deny l/abnormal. [place] 509392-07-19 09:29:00 Test Item Value Reference Range Interpretation Comments AST (test code = AST) 123 See_Comment [Auto mated message] The system which ge nerated this result transmit swathi reference range : <=37. The reference range was not used to interpr et this result as deny l/abnormal. [place] 509392-07-19 09:29:00 Test Item Value Reference Range Interpretation Comments Alk Phos (test code = Alk Phos) 272 39-136 [place] 509392-07-19 09:29:00 Test Item Value Reference Range Interpretation Comments Bili Total (test code = Bili Total) 0.9 0.2-1.3 [place] 509392-07-19 09:29:00 Test Item Value Reference Range Interpretation Comments AGAP (test code = AGAP) 10.3 10.0-20.0 [place] 509392-07-19 09:29:00 Test Item Value Reference Range Interpretation Comments B/C Ratio (test code = B/C Ratio) 6 1 6-25 [place] [address]-07-19 09:29:00 Test Item Value Reference Range Interpretation Comments Globulin (test code = Globulin) 3.6 2.7-4.2 [place] 509392-07-19 09:29:00 Test Item Value Reference Range Interpretation Comments A/G Ratio (test code = A/G Ratio) 0.8 1 0.7-1.6 [place] 509392-07-19 09:29:00 Test Item Value Reference Range Interpretation Comments eGFR (test code = eGFR) 12 [place] 509392-07-19 09:29:00 Test Item Value Reference Range Interpretation Comments Phosphorus (test code = Phosphorus) 4.3 2.5-4.5 [place] 796562-07-19 09:29:00 Test Item Value Reference Range Interpretation Comments WBC (test code = WBC) 4.7 3.7-10.4 [place] 796562-07-19 09:29:00 Test Item Value Reference Range Interpretation Comments RBC (test code = RBC) 2.14 4.70-6.10 [place] 796562-07-19 09:29:00 Test Item Value Reference Range Interpretation Comments Hgb (test code = Hgb) 7.6 14.0-18.0 [place] 796562-07-19 09:29:00 Test Item Value Reference Range Interpretation Comments Hct (test code = Hct) 22.8 42.0-54.0 [facility]villeTrlvxkfSQUZMQUGYM2201-84-24 09:29:00 Test Item Value Reference Range Interpretation Comments MCV (test code = MCV) 106.6 80.0-94.0 [facility] GreenvilleFrfgunnMHNPAWZHFW4513-15-48 09:29:00 Test Item Value Reference Range Interpretation Comments MCH (test code = MCH) 35.6 pg 27.0-31.0 [facility] GreenvilleZcnahxqVGXHPUVTSR8759-71-78 09:29:00 Test Item Value Reference Range Interpretation Comments MCHC (test code = MCHC) 33.4 32.0-36.0 [facility] GreenvilleTkdczkmJMQLXYCMLU3467-89-62 09:29:00 Test Item Value Reference Range Interpretation Comments RDW (test code = RDW) 24.3 11.5-14.5 [facility] GreenvilleWniyddeKZKWVIOJGP2671-30-20 09:29:00 Test Item Value Reference Range Interpretation Comments Platelet (test code = Platelet) 148 133-450 [facility] GreenvilleCvvjdtfGINXPMEJRZ2289-09-85 09:29:00 Test Item Value Reference Range Interpretation Comments MPV (test code = MPV) 8.1 7.4-10.4 [facility] GreenvilleYcwpxwbAFPUELIHDA6408-68-61 09:29:00 Test Item Value Reference Range Interpretation Comments D-Dimer (test code = D-Dimer) 3.63 [facility] GreenvilleBqgwokwWEHBTUQDYA0444-67-16 09:29:00 Test Item Value Reference Range Interpretation Comments Segs (test code = Segs) 74.8 45.0-75.0 [facility] GreenvilleChxmfheKORHXGLXFN1541-30-77 09:29:00 Test Item Value Reference Range Interpretation Comments Lymphocytes (test code = Lymphocytes) 15.5 20.0-40.0 [facility] GreenvilleEqdhperMVYLYSPRII4628-96-34 09:29:00 Test Item Value Reference Range Interpretation Comments Monocytes (test code = Monocytes) 9.5 2.0-12.0 [facility] GreenvilleKqzadzoELZQVBHTKI5020-57-62 09:29:00 Test Item Value Reference Range Interpretation Comments Basophils (test code = 0.2 See_Comment [Aut omated message] The Basophils) system which ge nerated this result tra nsmitted reference range : <=1.0. The reference r samantha was not used to int erpret this result as normal/abnormal . [place] 796562-07-19 09:29:00 Test Item Value Reference Range Interpretation Comments Neutrophils # (test code = Neutrophils 3.5 1.5-8.1 #) [place] 796562-07-19 09:29:00 Test Item Value Reference Range Interpretation Comments Lymphocytes # (test code = Lymphocytes 0.7 1.0-5.5 #) [place] 796562-07-19 09:29:00 Test Item Value Reference Range Interpretation Comments Monocytes # (test code 0.4 See_Comment [Aut omated message] The = Monocytes #) system which generated this result tra nsmitted reference range : <=0.8. The reference r samantha was not used to int erpret this result as normal/abnormal . [place] 796562-07-19 09:29:00 Test Item Value Reference Range Interpretation Comments Macrocyte (test code = 1+ *ABN*(12/16/21 Macrocyte) 4:29 AM) [place] 735922-07-19 09:29:00 Test Item Value Reference Range Interpretation Comments C-REACTIVE PROTEIN (test code = 19.0 C-REACTIVE PROTEIN) [place] 509392-07-19 09:29:00 Test Item Value Reference Range Interpretation Comments Glucose Lvl (test code = Glucose Lvl) 199 70-99 [place] 509392-07-19 09:29:00 Test Item Value Reference Range Interpretation Comments BUN (test code = BUN) 28 7-22 [place] 509392-07-19 09:29:00 Test Item Value Reference Range Interpretation Comments Creatinine Lvl (test code = Creatinine 4.84 0.50-1.40 Lvl) [place] 509392-07-19 09:29:00 Test Item Value Reference Range Interpretation Comments Sodium Lvl (test code = Sodium Lvl) 134 135-145 [place] 509392-07-19 09:29:00 Test Item Value Reference Range Interpretation Comments Potassium Lvl (test code = Potassium 4.3 3.5-5.1 Lvl) [place] 509392-07-19 09:29:00 Test Item Value Reference Range Interpretation Comments Chloride Lvl (test code = Chloride Lvl) 100 95-109 [place] 509392-07-19 09:29:00 Test Item Value Reference Range Interpretation Comments CO2 (test code = CO2) 28 24-32 [place] 509392-07-19 09:29:00 Test Item Value Reference Range Interpretation Comments Calcium Lvl (test code = Calcium Lvl) 9.4 8.5-10.5 [place] 509392-07-19 09:29:00 Test Item Value Reference Range Interpretation Comments Total Protein (test code = Total 6.6 6.4-8.4 Protein) [place] 509392-07-19 09:29:00 Test Item Value Reference Range Interpretation Comments Albumin Lvl (test code = Albumin Lvl) 3.0 3.5-5.0 [place] [address]-07-19 09:29:00 Test Item Value Reference Range Interpretation Comments ALT (test code = ALT) 92 See_Comment [Auto mated message] The system which ge nerated this result transmit swathi reference range : <=65. The reference range was not used to interpr et this result as deny l/abnormal. [place] 509392-07-19 09:29:00 Test Item Value Reference Range Interpretation Comments AST (test code = AST) 123 See_Comment [Auto mated message] The system which ge nerated this result transmit swathi reference range : <=37. The reference range was not used to interpr et this result as deny l/abnormal. [place] 509392-07-19 09:29:00 Test Item Value Reference Range Interpretation Comments Alk Phos (test code = Alk Phos) 272 39-136 [place] 509392-07-19 09:29:00 Test Item Value Reference Range Interpretation Comments Bili Total (test code = Bili Total) 0.9 0.2-1.3 [place] [address]-07-19 09:29:00 Test Item Value Reference Range Interpretation Comments AGAP (test code = AGAP) 10.3 10.0-20.0 [place] [address]-07-19 09:29:00 Test Item Value Reference Range Interpretation Comments B/C Ratio (test code = B/C Ratio) 6 1 6-25 [place] [address]-07-19 09:29:00 Test Item Value Reference Range Interpretation Comments Globulin (test code = Globulin) 3.6 2.7-4.2 [facility]2022-07-19 09:29:00 Test Item Value Reference Range Interpretation Comments A/G Ratio (test code = A/G Ratio) 0.8 1 0.7-1.6 [facility]2022-07-19 09:29:00 Test Item Value Reference Range Interpretation Comments eGFR (test code = eGFR) 12 [facility]2022-07-19 09:29:00 Test Item Value Reference Range Interpretation Comments Phosphorus (test code = Phosphorus) 4.3 2.5-4.5 [place] 796562-07-19 09:29:00 Test Item Value Reference Range Interpretation Comments WBC (test code = WBC) 4.7 3.7-10.4 [place] 796562-07-19 09:29:00 Test Item Value Reference Range Interpretation Comments RBC (test code = RBC) 2.14 4.70-6.10 [facility] GreenvilleLtwbvxyVGLCOTVXLO9527-36-19 09:29:00 Test Item Value Reference Range Interpretation Comments Hgb (test code = Hgb) 7.6 14.0-18.0 [place] 796562-07-19 09:29:00 Test Item Value Reference Range Interpretation Comments Hct (test code = Hct) 22.8 42.0-54.0 [facility] GreenvilleJhsfsqrQSONZGTYKE0432-03-02 09:29:00 Test Item Value Reference Range Interpretation Comments MCV (test code = MCV) 106.6 80.0-94.0 [facility] GreenvilleXlqktyoTBASEIDTLL6814-10-65 09:29:00 Test Item Value Reference Range Interpretation Comments MCH (test code = MCH) 35.6 pg 27.0-31.0 [facility] GreenvilleWjllowmFMEMMIOIYB2913-09-48 09:29:00 Test Item Value Reference Range Interpretation Comments MCHC (test code = MCHC) 33.4 32.0-36.0 [place] 796562-07-19 09:29:00 Test Item Value Reference Range Interpretation Comments RDW (test code = RDW) 24.3 11.5-14.5 [place] 796562-07-19 09:29:00 Test Item Value Reference Range Interpretation Comments Platelet (test code = Platelet) 148 133-450 [facility] GreenvilleArqurvdYNUGCVYKUL6388-77-60 09:29:00 Test Item Value Reference Range Interpretation Comments MPV (test code = MPV) 8.1 7.4-10.4 [facility] GreenvilleQuytttoDTZEIQTNWO7219-49-24 09:29:00 Test Item Value Reference Range Interpretation Comments D-Dimer (test code = D-Dimer) 3.63 [place] 796562-07-19 09:29:00 Test Item Value Reference Range Interpretation Comments Segs (test code = Segs) 74.8 45.0-75.0 [facility] GreenvilleVrnanqiVQXUNONCLK4080-49-36 09:29:00 Test Item Value Reference Range Interpretation Comments Lymphocytes (test code = Lymphocytes) 15.5 20.0-40.0 [facility] GreenvilleKuiyrvyCQHMNGWZWV7561-03-93 09:29:00 Test Item Value Reference Range Interpretation Comments Monocytes (test code = Monocytes) 9.5 2.0-12.0 [place] 796562-07-19 09:29:00 Test Item Value Reference Range Interpretation Comments Basophils (test code = 0.2 See_Comment [Aut omated message] The Basophils) system which ge nerated this result tra nsmitted reference range : <=1.0. The reference r samantha was not used to int erpret this result as normal/abnormal . [facility] GreenvilleHtrnzcmMZWMYTYCDN9026-27-52 09:29:00 Test Item Value Reference Range Interpretation Comments Neutrophils # (test code = Neutrophils 3.5 1.5-8.1 #) [facility] GreenvilleGwcrdumGUDNLQQLEY3922-23-15 09:29:00 Test Item Value Reference Range Interpretation Comments Lymphocytes # (test code = Lymphocytes 0.7 1.0-5.5 #) [facility] GreenvilleHfiopryABKVKJQYVY2698-68-24 09:29:00 Test Item Value Reference Range Interpretation Comments Monocytes # (test code 0.4 See_Comment [Aut omated message] The = Monocytes #) system which generated this result tra nsmitted reference range : <=0.8. The reference r samantha was not used to int erpret this result as normal/abnormal . [facility] GreenvilleZisidpmNMZLBYPGSL6573-24-48 09:29:00 Test Item Value Reference Range Interpretation Comments Macrocyte (test code = 1+ *ABN*(12/16/21 Macrocyte) 4:29 AM) [place] 735922-07-19 09:29:00 Test Item Value Reference Range Interpretation Comments C-REACTIVE PROTEIN (test code = 19.0 C-REACTIVE PROTEIN) [place] 509392-07-19 09:29:00 Test Item Value Reference Range Interpretation Comments Glucose Lvl (test code = Glucose Lvl) 199 70-99 [place] 509392-07-19 09:29:00 Test Item Value Reference Range Interpretation Comments BUN (test code = BUN) 28 7-22 [place] 509392-07-19 09:29:00 Test Item Value Reference Range Interpretation Comments Creatinine Lvl (test code = Creatinine 4.84 0.50-1.40 Lvl) [place] 509392-07-19 09:29:00 Test Item Value Reference Range Interpretation Comments Sodium Lvl (test code = Sodium Lvl) 134 135-145 [place] 509392-07-19 09:29:00 Test Item Value Reference Range Interpretation Comments Potassium Lvl (test code = Potassium 4.3 3.5-5.1 Lvl) [place] 509392-07-19 09:29:00 Test Item Value Reference Range Interpretation Comments Chloride Lvl (test code = Chloride Lvl) 100 95-109 [place] 509392-07-19 09:29:00 Test Item Value Reference Range Interpretation Comments CO2 (test code = CO2) 28 24-32 [place] 509392-07-19 09:29:00 Test Item Value Reference Range Interpretation Comments Calcium Lvl (test code = Calcium Lvl) 9.4 8.5-10.5 [place] 509392-07-19 09:29:00 Test Item Value Reference Range Interpretation Comments Total Protein (test code = Total 6.6 6.4-8.4 Protein) [place] 509392-07-19 09:29:00 Test Item Value Reference Range Interpretation Comments Albumin Lvl (test code = Albumin Lvl) 3.0 3.5-5.0 [place] 509392-07-19 09:29:00 Test Item Value Reference Range Interpretation Comments ALT (test code = ALT) 92 See_Comment [Auto mated message] The system which ge nerated this result transmit swathi reference range : <=65. The reference range was not used to interpr et this result as deny l/abnormal. [place] 509392-07-19 09:29:00 Test Item Value Reference Range Interpretation Comments AST (test code = AST) 123 See_Comment [Auto mated message] The system which ge nerated this result transmit swathi reference range : <=37. The reference range was not used to interpr et this result as deny l/abnormal. [place] 509392-07-19 09:29:00 Test Item Value Reference Range Interpretation Comments Alk Phos (test code = Alk Phos) 272 39-136 [place] 509392-07-19 09:29:00 Test Item Value Reference Range Interpretation Comments Bili Total (test code = Bili Total) 0.9 0.2-1.3 [place] 509392-07-19 09:29:00 Test Item Value Reference Range Interpretation Comments AGAP (test code = AGAP) 10.3 10.0-20.0 [place] 509392-07-19 09:29:00 Test Item Value Reference Range Interpretation Comments B/C Ratio (test code = B/C Ratio) 6 1 6-25 [place] 509392-07-19 09:29:00 Test Item Value Reference Range Interpretation Comments Globulin (test code = Globulin) 3.6 2.7-4.2 [place] 509392-07-19 09:29:00 Test Item Value Reference Range Interpretation Comments A/G Ratio (test code = A/G Ratio) 0.8 1 0.7-1.6 [place] 509392-07-19 09:29:00 Test Item Value Reference Range Interpretation Comments eGFR (test code = eGFR) 12 [place] 509392-07-19 09:29:00 Test Item Value Reference Range Interpretation Comments Phosphorus (test code = Phosphorus) 4.3 2.5-4.5 [place] 796562-07-19 09:29:00 Test Item Value Reference Range Interpretation Comments WBC (test code = WBC) 4.7 3.7-10.4 [place] 796562-07-19 09:29:00 Test Item Value Reference Range Interpretation Comments RBC (test code = RBC) 2.14 4.70-6.10 [place] 796562-07-19 09:29:00 Test Item Value Reference Range Interpretation Comments Hgb (test code = Hgb) 7.6 14.0-18.0 [facility] GreenvilleCfkwffhVHMXDXWEIJ3060-89-48 09:29:00 Test Item Value Reference Range Interpretation Comments Hct (test code = Hct) 22.8 42.0-54.0 [facility] GreenvilleKmrprdwAMKFOVSNVA0650-49-37 09:29:00 Test Item Value Reference Range Interpretation Comments MCV (test code = MCV) 106.6 80.0-94.0 [facility] GreenvilleIheldxpICHTGXLLQW3120-82-52 09:29:00 Test Item Value Reference Range Interpretation Comments MCH (test code = MCH) 35.6 pg 27.0-31.0 [facility] GreenvilleFpmrwuuPXDKELZIQY3603-83-84 09:29:00 Test Item Value Reference Range Interpretation Comments MCHC (test code = MCHC) 33.4 32.0-36.0 [facility] GreenvilleSylpuueMHNVOEEMRF1144-35-69 09:29:00 Test Item Value Reference Range Interpretation Comments RDW (test code = RDW) 24.3 11.5-14.5 [facility] GreenvilleNiaxmojPJGQGSXGSF4982-32-60 09:29:00 Test Item Value Reference Range Interpretation Comments Platelet (test code = Platelet) 148 133-450 [facility] GreenvilleTfwfzccCIEYPBWQYZ7184-26-34 09:29:00 Test Item Value Reference Range Interpretation Comments MPV (test code = MPV) 8.1 7.4-10.4 [facility] GreenvilleBetwqssVOYDJAGSDR2267-68-60 09:29:00 Test Item Value Reference Range Interpretation Comments D-Dimer (test code = D-Dimer) 3.63 [place] 796562-07-19 09:29:00 Test Item Value Reference Range Interpretation Comments Segs (test code = Segs) 74.8 45.0-75.0 [place] 796562-07-19 09:29:00 Test Item Value Reference Range Interpretation Comments Lymphocytes (test code = Lymphocytes) 15.5 20.0-40.0 [facility] GreenvilleOwgyqwhDYMWZLVDYU5429-36-54 09:29:00 Test Item Value Reference Range Interpretation Comments Monocytes (test code = Monocytes) 9.5 2.0-12.0 [place] 796562-07-19 09:29:00 Test Item Value Reference Range Interpretation Comments Basophils (test code = 0.2 See_Comment [Aut omated message] The Basophils) system which ge nerated this result tra nsmitted reference range : <=1.0. The reference r samantha was not used to int erpret this result as normal/abnormal . [facility] GreenvilleWjhdgxbQBBUMWHIGQ9496-22-15 09:29:00 Test Item Value Reference Range Interpretation Comments Neutrophils # (test code = Neutrophils 3.5 1.5-8.1 #) [facility] GreenvilleBvnvitqRGNMEEELVF1299-54-43 09:29:00 Test Item Value Reference Range Interpretation Comments Lymphocytes # (test code = Lymphocytes 0.7 1.0-5.5 #) [facility] GreenvilleJpfnjbwNPUPHWTIJR4971-67-00 09:29:00 Test Item Value Reference Range Interpretation Comments Monocytes # (test code 0.4 See_Comment [Aut omated message] The = Monocytes #) system which generated this result tra nsmitted reference range : <=0.8. The reference r samantha was not used to int erpret this result as normal/abnormal . [place] 796562-07-19 09:29:00 Test Item Value Reference Range Interpretation Comments Macrocyte (test code = 1+ *ABN*(12/16/21 Macrocyte) 4:29 AM) [facility] CenterSdrcacqEMGNUZEOKU1173-96-98 09:29:00 Test Item Value Reference Range Interpretation Comments C-REACTIVE PROTEIN (test code = 19.0 C-REACTIVE PROTEIN) [facility] CenterPlayground Energy ZWVOS0178-50-97 09:29:00 Test Item Value Reference Range Interpretation Comments Glucose Lvl (test code = Glucose Lvl) 199 70-99 [facility]2022-07-19 09:29:00 Test Item Value Reference Range Interpretation Comments BUN (test code = BUN) 28 12-19 [place] 509392-07-19 09:29:00 Test Item Value Reference Range Interpretation Comments Creatinine Lvl (test code = Creatinine 4.84 0.50-1.40 Lvl) [place] 509392-07-19 09:29:00 Test Item Value Reference Range Interpretation Comments Sodium Lvl (test code = Sodium Lvl) 134 135-145 [place] 509392-07-19 09:29:00 Test Item Value Reference Range Interpretation Comments Potassium Lvl (test code = Potassium 4.3 3.5-5.1 Lvl) [place] 509392-07-19 09:29:00 Test Item Value Reference Range Interpretation Comments Chloride Lvl (test code = Chloride Lvl) 100 95-109 [facility] AHKSH4355-36-96 09:29:00 Test Item Value Reference Range Interpretation Comments CO2 (test code = CO2) 28 24-32 [facility] HospitalFlynnLANCE [facility] 8[address]24FRPYU4360-24-19 09:29:00 Test Item Value Reference Range Interpretation Comments Calcium Lvl (test code = Calcium Lvl) 9.4 8.5-10.5 [facility] VFSUN3340-96-94 09:29:00 Test Item Value Reference Range Interpretation Comments Total Protein (test code = Total 6.6 6.4-8.4 Protein) [facility] [id number] 09:29:00 Test Item Value Reference Range Interpretation Comments Albumin Lvl (test code = Albumin Lvl) 3.0 3.5-5.0 [facility] [id number] 09:29:00 Test Item Value Reference Range Interpretation Comments ALT (test code = ALT) 92 See_Comment [Auto mated message] The system which ge nerated this result transmit swathi reference range : <=65. The reference range was not used to interpr et this result as deny l/abnormal. [facility] [employer] [id number] 09:29:00 Test Item Value Reference Range Interpretation Comments AST (test code = AST) 123 See_Comment [Auto mated message] The system which ge nerated this result transmit swathi reference range : <=37. The reference range was not used to interpr et this result as deny l/abnormal. [facility] [employer] XRZYO1614-05-04 09:29:00 Test Item Value Reference Range Interpretation Comments Alk Phos (test code = Alk Phos) 272 39-136 [facility] BARTN0328-82-59 09:29:00 Test Item Value Reference Range Interpretation Comments Bili Total (test code = Bili Total) 0.9 0.2-1.3 [facility] GJZSQ7910-85-40 09:29:00 Test Item Value Reference Range Interpretation Comments AGAP (test code = AGAP) 10.3 10.0-20.0 [facility] [id number] 09:29:00 Test Item Value Reference Range Interpretation Comments B/C Ratio (test code = B/C Ratio) 6 1 6-25 [place] 509392-07-19 09:29:00 Test Item Value Reference Range Interpretation Comments Globulin (test code = Globulin) 3.6 2.7-4.2 [place] [address]-07-19 09:29:00 Test Item Value Reference Range Interpretation Comments A/G Ratio (test code = A/G Ratio) 0.8 1 0.7-1.6 [place] [address]-07-19 09:29:00 Test Item Value Reference Range Interpretation Comments eGFR (test code = eGFR) 12 [facility]2022-07-19 09:29:00 Test Item Value Reference Range Interpretation Comments Phosphorus (test code = Phosphorus) 4.3 2.5-4.5 [place] 796562-07-19 09:29:00 Test Item Value Reference Range Interpretation Comments WBC (test code = WBC) 4.7 3.7-10.4 [place] 796562-07-19 09:29:00 Test Item Value Reference Range Interpretation Comments RBC (test code = RBC) 2.14 4.70-6.10 [place] 796562-07-19 09:29:00 Test Item Value Reference Range Interpretation Comments Hgb (test code = Hgb) 7.6 14.0-18.0 [place] 796562-07-19 09:29:00 Test Item Value Reference Range Interpretation Comments Hct (test code = Hct) 22.8 42.0-54.0 [place] 796562-07-19 09:29:00 Test Item Value Reference Range Interpretation Comments MCV (test code = MCV) 106.6 80.0-94.0 [place] 796562-07-19 09:29:00 Test Item Value Reference Range Interpretation Comments MCH (test code = MCH) 35.6 pg 27.0-31.0 [place] 796562-07-19 09:29:00 Test Item Value Reference Range Interpretation Comments MCHC (test code = MCHC) 33.4 32.0-36.0 [place] 796562-07-19 09:29:00 Test Item Value Reference Range Interpretation Comments RDW (test code = RDW) 24.3 11.5-14.5 [place] 796562-07-19 09:29:00 Test Item Value Reference Range Interpretation Comments Platelet (test code = Platelet) 148 133-450 [place] [address]-07-19 09:29:00 Test Item Value Reference Range Interpretation Comments MPV (test code = MPV) 8.1 7.4-10.4 [place] [address]-07-19 09:29:00 Test Item Value Reference Range Interpretation Comments D-Dimer (test code = D-Dimer) 3.63 [place] [address]-07-19 09:29:00 Test Item Value Reference Range Interpretation Comments Segs (test code = Segs) 74.8 45.0-75.0 [place] [address]-07-19 09:29:00 Test Item Value Reference Range Interpretation Comments Lymphocytes (test code = Lymphocytes) 15.5 20.0-40.0 [place] [address]-07-19 09:29:00 Test Item Value Reference Range Interpretation Comments Monocytes (test code = Monocytes) 9.5 2.0-12.0 [place] [address]-07-19 09:29:00 Test Item Value Reference Range Interpretation Comments Basophils (test code = 0.2 See_Comment [Aut omated message] The Basophils) system which ge nerated this result tra nsmitted reference range : <=1.0. The reference r samantha was not used to int erpret this result as normal/abnormal . [place] 796562-07-19 09:29:00 Test Item Value Reference Range Interpretation Comments Neutrophils # (test code = Neutrophils 3.5 1.5-8.1 #) [place] 796562-07-19 09:29:00 Test Item Value Reference Range Interpretation Comments Lymphocytes # (test code = Lymphocytes 0.7 1.0-5.5 #) [place] [address]-07-19 09:29:00 Test Item Value Reference Range Interpretation Comments Monocytes # (test code 0.4 See_Comment [Aut omated message] The = Monocytes #) system which generated this result tra nsmitted reference range : <=0.8. The reference r samantha was not used to int erpret this result as normal/abnormal . [place] [address]-07-19 09:29:00 Test Item Value Reference Range Interpretation Comments Macrocyte (test code = 1+ *ABN*(12/16/21 Macrocyte) 4:29 AM) [facility] CenterIjczfaeOPUNYLQPRN5478-59-92 09:29:00 Test Item Value Reference Range Interpretation Comments C-REACTIVE PROTEIN (test code = 19.0 C-REACTIVE PROTEIN) [place] 509392-07-19 09:29:00 Test Item Value Reference Range Interpretation Comments Glucose Lvl (test code = Glucose Lvl) 199 70-99 [place] 509392-07-19 09:29:00 Test Item Value Reference Range Interpretation Comments BUN (test code = BUN) 28 - [place] 509392-07-19 09:29:00 Test Item Value Reference Range Interpretation Comments Creatinine Lvl (test code = Creatinine 4.84 0.50-1.40 Lvl) [place] 509392-07-19 09:29:00 Test Item Value Reference Range Interpretation Comments Sodium Lvl (test code = Sodium Lvl) 134 135-145 [place] 509392-07-19 09:29:00 Test Item Value Reference Range Interpretation Comments Potassium Lvl (test code = Potassium 4.3 3.5-5.1 Lvl) [facility]2022-07-19 09:29:00 Test Item Value Reference Range Interpretation Comments Chloride Lvl (test code = Chloride Lvl) 100 95-109 [place] 509392-07-19 09:29:00 Test Item Value Reference Range Interpretation Comments CO2 (test code = CO2) 28 24-32 [place] 509392-07-19 09:29:00 Test Item Value Reference Range Interpretation Comments Calcium Lvl (test code = Calcium Lvl) 9.4 8.5-10.5 [place] 509392-07-19 09:29:00 Test Item Value Reference Range Interpretation Comments Total Protein (test code = Total 6.6 6.4-8.4 Protein) [place] 509392-07-19 09:29:00 Test Item Value Reference Range Interpretation Comments Albumin Lvl (test code = Albumin Lvl) 3.0 3.5-5.0 [place] 509392-07-19 09:29:00 Test Item Value Reference Range Interpretation Comments ALT (test code = ALT) 92 See_Comment [Auto mated message] The system which ge nerated this result transmit swathi reference range : <=65. The reference range was not used to interpr et this result as deny l/abnormal. [facility] [id number] 09:29:00 Test Item Value Reference Range Interpretation Comments AST (test code = AST) 123 See_Comment [Auto mated message] The system which ge nerated this result transmit swathi reference range : <=37. The reference range was not used to interpr et this result as deny l/abnormal. [facility] [id number] 09:29:00 Test Item Value Reference Range Interpretation Comments Alk Phos (test code = Alk Phos) 272 39-136 [facility] [id number] 09:29:00 Test Item Value Reference Range Interpretation Comments Bili Total (test code = Bili Total) 0.9 0.2-1.3 [facility] [id number] 09:29:00 Test Item Value Reference Range Interpretation Comments AGAP (test code = AGAP) 10.3 10.0-20.0 [facility] [id number] 09:29:00 Test Item Value Reference Range Interpretation Comments B/C Ratio (test code = B/C Ratio) 6 1 6-25 [facility] [id number] 09:29:00 Test Item Value Reference Range Interpretation Comments Globulin (test code = Globulin) 3.6 2.7-4.2 [facility] [id number] 09:29:00 Test Item Value Reference Range Interpretation Comments A/G Ratio (test code = A/G Ratio) 0.8 1 0.7-1.6 [facility] [id number] 09:29:00 Test Item Value Reference Range Interpretation Comments eGFR (test code = eGFR) 12 [facility] [id number] 09:29:00 Test Item Value Reference Range Interpretation Comments Phosphorus (test code = Phosphorus) 4.3 2.5-4.5 [place] 796562-07-19 09:29:00 Test Item Value Reference Range Interpretation Comments WBC (test code = WBC) 4.7 3.7-10.4 [place] 796562-07-19 09:29:00 Test Item Value Reference Range Interpretation Comments RBC (test code = RBC) 2.14 4.70-6.10 [facility]villeKqofgdrRWEPEOVXTT3567-27-44 09:29:00 Test Item Value Reference Range Interpretation Comments Hgb (test code = Hgb) 7.6 14.0-18.0 [facility] GreenvilleLmmiingCQMAUBPHBZ1352-55-55 09:29:00 Test Item Value Reference Range Interpretation Comments Hct (test code = Hct) 22.8 42.0-54.0 [facility] GreenvilleIhyluobDTFSCLXYKI8940-39-12 09:29:00 Test Item Value Reference Range Interpretation Comments MCV (test code = MCV) 106.6 80.0-94.0 [facility] GreenvilleSnaxdnvVZFOTCVAJK5027-25-06 09:29:00 Test Item Value Reference Range Interpretation Comments MCH (test code = MCH) 35.6 pg 27.0-31.0 [facility] GreenvilleSejsapiWYPSOYAHIZ1911-77-27 09:29:00 Test Item Value Reference Range Interpretation Comments MCHC (test code = MCHC) 33.4 32.0-36.0 [facility] GreenvilleTujxewnRIQUMPPXVM1779-87-77 09:29:00 Test Item Value Reference Range Interpretation Comments RDW (test code = RDW) 24.3 11.5-14.5 [facility] GreenvilleItbkhtzNMQLKEBQQS4327-00-57 09:29:00 Test Item Value Reference Range Interpretation Comments Platelet (test code = Platelet) 148 133-450 [facility] GreenvilleIwltsfqKFSCHBYTVP7626-77-51 09:29:00 Test Item Value Reference Range Interpretation Comments MPV (test code = MPV) 8.1 7.4-10.4 [facility] GreenvilleUhdubrwQQWCTRBOVN8914-09-03 09:29:00 Test Item Value Reference Range Interpretation Comments D-Dimer (test code = D-Dimer) 3.63 [facility] GreenvilleWgxjcfkCMNVNLTWTN5808-07-81 09:29:00 Test Item Value Reference Range Interpretation Comments Segs (test code = Segs) 74.8 45.0-75.0 [place] 796562-07-19 09:29:00 Test Item Value Reference Range Interpretation Comments Lymphocytes (test code = Lymphocytes) 15.5 20.0-40.0 [facility] GreenvilleKmcqijeVHBELRIWQK0458-87-21 09:29:00 Test Item Value Reference Range Interpretation Comments Monocytes (test code = Monocytes) 9.5 2.0-12.0 [facility] GreenvilleEnyhgiaNQAPEHWAGN5653-64-01 09:29:00 Test Item Value Reference Range Interpretation Comments Basophils (test code = 0.2 See_Comment [Aut omated message] The Basophils) system which ge nerated this result tra nsmitted reference range : <=1.0. The reference r samantha was not used to int erpret this result as normal/abnormal . [facility] GreenvilleZxugkbmIQLIXYQGNE2093-60-35 09:29:00 Test Item Value Reference Range Interpretation Comments Neutrophils # (test code = Neutrophils 3.5 1.5-8.1 #) [facility] GreenvilleIeadbgsIWJDPDGSYQ3196-61-48 09:29:00 Test Item Value Reference Range Interpretation Comments Lymphocytes # (test code = Lymphocytes 0.7 1.0-5.5 #) [facility] GreenvilleQsqobskCNUCNWYQSQ0416-96-81 09:29:00 Test Item Value Reference Range Interpretation Comments Monocytes # (test code 0.4 See_Comment [Aut omated message] The = Monocytes #) system which generated this result tra nsmitted reference range : <=0.8. The reference r samantha was not used to int erpret this result as normal/abnormal . [facility] GreenvilleZpyslxlSEENEUGYNV5818-62-56 09:29:00 Test Item Value Reference Range Interpretation Comments Macrocyte (test code = 1+ *ABN*(12/16/21 Macrocyte) 4:29 AM) [facility] CenterVygcaueCXAPYILPLB1899-01-49 09:29:00 Test Item Value Reference Range Interpretation Comments C-REACTIVE PROTEIN (test code = 19.0 C-REACTIVE PROTEIN) [facility]2022-07-19 09:29:00 Test Item Value Reference Range Interpretation Comments Glucose Lvl (test code = Glucose Lvl) 199 70-99 [facility]2022-07-19 09:29:00 Test Item Value Reference Range Interpretation Comments BUN (test code = BUN) 28 - [place] 509392-07-19 09:29:00 Test Item Value Reference Range Interpretation Comments Creatinine Lvl (test code = Creatinine 4.84 0.50-1.40 Lvl) [facility]2022-07-19 09:29:00 Test Item Value Reference Range Interpretation Comments Sodium Lvl (test code = Sodium Lvl) 134 135-145 [facility] CenterPlay[facility] WJSYV5623-06-56 09:29:00 Test Item Value Reference Range Interpretation Comments Potassium Lvl (test code = Potassium 4.3 3.5-5.1 Lvl) [place] 509392-07-19 09:29:00 Test Item Value Reference Range Interpretation Comments Chloride Lvl (test code = Chloride Lvl) 100 95-109 [place] 509392-07-19 09:29:00 Test Item Value Reference Range Interpretation Comments CO2 (test code = CO2) 28 24-32 [place] 509392-07-19 09:29:00 Test Item Value Reference Range Interpretation Comments Calcium Lvl (test code = Calcium Lvl) 9.4 8.5-10.5 [place] 509392-07-19 09:29:00 Test Item Value Reference Range Interpretation Comments Total Protein (test code = Total 6.6 6.4-8.4 Protein) [place] 509392-07-19 09:29:00 Test Item Value Reference Range Interpretation Comments Albumin Lvl (test code = Albumin Lvl) 3.0 3.5-5.0 [place] 509392-07-19 09:29:00 Test Item Value Reference Range Interpretation Comments ALT (test code = ALT) 92 See_Comment [Auto mated message] The system which ge nerated this result transmit swathi reference range : <=65. The reference range was not used to interpr et this result as deny l/abnormal. [place] 509392-07-19 09:29:00 Test Item Value Reference Range Interpretation Comments AST (test code = AST) 123 See_Comment [Auto mated message] The system which ge nerated this result transmit swathi reference range : <=37. The reference range was not used to interpr et this result as deny l/abnormal. [place] 509392-07-19 09:29:00 Test Item Value Reference Range Interpretation Comments Alk Phos (test code = Alk Phos) 272 39-136 [place] 509392-07-19 09:29:00 Test Item Value Reference Range Interpretation Comments Bili Total (test code = Bili Total) 0.9 0.2-1.3 [place] 509392-07-19 09:29:00 Test Item Value Reference Range Interpretation Comments AGAP (test code = AGAP) 10.3 10.0-20.0 [place] 509392-07-19 09:29:00 Test Item Value Reference Range Interpretation Comments B/C Ratio (test code = B/C Ratio) 6 1 6-25 [place] 509392-07-19 09:29:00 Test Item Value Reference Range Interpretation Comments Globulin (test code = Globulin) 3.6 2.7-4.2 [place] 509392-07-19 09:29:00 Test Item Value Reference Range Interpretation Comments A/G Ratio (test code = A/G Ratio) 0.8 1 0.7-1.6 [place] 509392-07-19 09:29:00 Test Item Value Reference Range Interpretation Comments eGFR (test code = eGFR) 12 [facility]2022-07-19 09:29:00 Test Item Value Reference Range Interpretation Comments Phosphorus (test code = Phosphorus) 4.3 2.5-4.5 [facility] GreenvilleDjdlrjeKDROAJKBLC5911-89-03 09:29:00 Test Item Value Reference Range Interpretation Comments WBC (test code = WBC) 4.7 3.7-10.4 [place] 796562-07-19 09:29:00 Test Item Value Reference Range Interpretation Comments RBC (test code = RBC) 2.14 4.70-6.10 [facility] GreenvilleLqpgafeUDJRNGJSUA4012-29-82 09:29:00 Test Item Value Reference Range Interpretation Comments Hgb (test code = Hgb) 7.6 14.0-18.0 [place] 796562-07-19 09:29:00 Test Item Value Reference Range Interpretation Comments Hct (test code = Hct) 22.8 42.0-54.0 [place] 796562-07-19 09:29:00 Test Item Value Reference Range Interpretation Comments MCV (test code = MCV) 106.6 80.0-94.0 [place] 796562-07-19 09:29:00 Test Item Value Reference Range Interpretation Comments MCH (test code = MCH) 35.6 pg 27.0-31.0 [place] 796562-07-19 09:29:00 Test Item Value Reference Range Interpretation Comments MCHC (test code = MCHC) 33.4 32.0-36.0 [place] 796562-07-19 09:29:00 Test Item Value Reference Range Interpretation Comments RDW (test code = RDW) 24.3 11.5-14.5 [place] 796562-07-19 09:29:00 Test Item Value Reference Range Interpretation Comments Platelet (test code = Platelet) 148 133-450 [place] 796562-07-19 09:29:00 Test Item Value Reference Range Interpretation Comments MPV (test code = MPV) 8.1 7.4-10.4 [place] 796562-07-19 09:29:00 Test Item Value Reference Range Interpretation Comments D-Dimer (test code = D-Dimer) 3.63 [place] [address]-07-19 09:29:00 Test Item Value Reference Range Interpretation Comments Segs (test code = Segs) 74.8 45.0-75.0 [place] 796562-07-19 09:29:00 Test Item Value Reference Range Interpretation Comments Lymphocytes (test code = Lymphocytes) 15.5 20.0-40.0 [place] 796562-07-19 09:29:00 Test Item Value Reference Range Interpretation Comments Monocytes (test code = Monocytes) 9.5 2.0-12.0 [place] 796562-07-19 09:29:00 Test Item Value Reference Range Interpretation Comments Basophils (test code = 0.2 See_Comment [Aut omated message] The Basophils) system which ge nerated this result tra nsmitted reference range : <=1.0. The reference r samantha was not used to int erpret this result as normal/abnormal . [place] 796562-07-19 09:29:00 Test Item Value Reference Range Interpretation Comments Neutrophils # (test code = Neutrophils 3.5 1.5-8.1 #) [place] [address]-07-19 09:29:00 Test Item Value Reference Range Interpretation Comments Lymphocytes # (test code = Lymphocytes 0.7 1.0-5.5 #) [place] [address]-07-19 09:29:00 Test Item Value Reference Range Interpretation Comments Monocytes # (test code 0.4 See_Comment [Aut omated message] The = Monocytes #) system which generated this result tra nsmitted reference range : <=0.8. The reference r samantha was not used to int erpret this result as normal/abnormal . [facility] GreenvilleXgtzoquSYCXDZWTJH7821-78-71 09:29:00 Test Item Value Reference Range Interpretation Comments Macrocyte (test code = 1+ *ABN*(12/16/21 Macrocyte) 4:29 AM) [facility] ClubWpdzykaSPWARHCQRD3636-30-92 09:29:00 Test Item Value Reference Range Interpretation Comments C-REACTIVE PROTEIN (test code = 19.0 C-REACTIVE PROTEIN) [facility] ClubAsohykaFNVRAHGBUX7636-09-94 02:28:00 Test Item Value Reference Range Interpretation Comments Hep Bs Ag (test code Negative *NA*(12/15/21 = Hep Bs Ag) 9:28 PM) [facility] CenterGmbmwczOGOITNNRLI5156-09-21 02:28:00 Test Item Value Reference Range Interpretation Comments Hep Bs Ag (test code Negative *NA*(12/15/21 = Hep Bs Ag) 9:28 PM) [facility] ClubWhqbejwCFLIQUEUUG0771-29-58 02:28:00 Test Item Value Reference Range Interpretation Comments Hep Bs Ag (test code Negative *NA*(12/15/21 = Hep Bs Ag) 9:28 PM) [facility] CenterVovvmnjKZHCMXFLDI8347-37-28 02:28:00 Test Item Value Reference Range Interpretation Comments Hep Bs Ag (test code Negative *NA*(12/15/21 = Hep Bs Ag) 9:28 PM) [facility] CenterHlgyibpMRAQLHYCQR8499-22-21 02:28:00 Test Item Value Reference Range Interpretation Comments Hep Bs Ag (test code Negative *NA*(12/15/21 = Hep Bs Ag) 9:28 PM) [facility] CenterRbtyaliLUSCGHRTSE8784-88-23 02:28:00 Test Item Value Reference Range Interpretation Comments Hep Bs Ag (test code Negative *NA*(12/15/21 = Hep Bs Ag) 9:28 PM) [facility] CenterKdxlgttQSYIMOOIOR7243-08-19 02:28:00 Test Item Value Reference Range Interpretation Comments Hep Bs Ag (test code Negative *NA*(12/15/21 = Hep Bs Ag) 9:28 PM) [facility] CenterNvvlwruKQRPNWQOYN3903-56-75 02:28:00 Test Item Value Reference Range Interpretation Comments Hep Bs Ag (test code Negative *NA*(12/15/21 = Hep Bs Ag) 9:28 PM) [facility] CenterOcoupkqGMONTJGQAS9560-72-39 02:28:00 Test Item Value Reference Range Interpretation Comments Hep Bs Ag (test code Negative *NA*(12/15/21 = Hep Bs Ag) 9:28 PM) [facility] YjjneouQJJMYULCNA9490-76-65 02:28:00 Test Item Value Reference Range Interpretation Comments Hep Bs Ag (test code Negative *NA*(12/15/21 = Hep Bs Ag) 9:28 PM) [facility] ChburlaIYSPOEUWKH0130-66-58 02:28:00 Test Item Value Reference Range Interpretation Comments Hep Bs Ag (test code Negative *NA*(12/15/21 = Hep Bs Ag) 9:28 PM) [facility] AqqkhrnDJCVYQMWUQ2073-89-91 02:28:00 Test Item Value Reference Range Interpretation Comments Hep Bs Ag (test code Negative *NA*(12/15/21 = Hep Bs Ag) 9:28 PM) [facility] LvtuxsmXFXTLOZRFI7241-28-03 02:28:00 Test Item Value Reference Range Interpretation Comments Hep Bs Ag (test code Negative *NA*(12/15/21 = Hep Bs Ag) 9:28 PM) [facility] Ffmfqz8833-23-83 17:16:00 Test Item Value Reference Range Interpretation Comments Gram Stain Report Gram Stain Performed By: (test code = [facility] St[facility] Report) [facility] Respiratory w/Gram Vvoia8321-26-91 17:16:00 Test Item Value Reference Range Interpretation Comments Culture: Respiratory Moderate Yeast Normal w/Gram Stain (test code Respiratory Lyndsay = Culture: Respiratory Isolated w/Gram Stain) [facility] Hmvpxj6956-49-50 17:16:00 Test Item Value Reference Range Interpretation Comments Gram Stain Report Gram Stain Performed By: (test code = [facility] St[facility] Report) [facility] Res[facility] w/Gram Dgdbz1995-27-02 17:16:00 Test Item Value Reference Range Interpretation Comments Culture: Respiratory Moderate Yeast Normal w/Gram Stain (test code Respiratory Lyndsay = Culture: Respiratory Isolated w/Gram Stain) [facility] Cqnrzw1664-29-64 17:16:00 Test Item Value Reference Range Interpretation Comments Gram Stain Report Gram Stain Performed By: (test code = [facility] Stain Report) [facility]: Respiratory w/Gram Gqvgo9764-85-82 17:16:00 Test Item Value Reference Range Interpretation Comments Culture: Respiratory Moderate Yeast Normal w/Gram Stain (test code Respiratory Lyndsay = Culture: Respiratory Isolated w/Gram Stain) [facility] Doreaa8159-08-12 17:16:00 Test Item Value Reference Range Interpretation Comments Gram Stain Report Gram Stain Performed By: (test code = [facility] St[facility] Report) [facility]: Respiratory w/Gram Exwny0666-05-14 17:16:00 Test Item Value Reference Range Interpretation Comments Culture: Respiratory Moderate Yeast Normal w/Gram Stain (test code Respiratory Lyndsay = Culture: Respiratory Isolated w/Gram Stain) [facility] Ganmck6821-18-79 17:16:00 Test Item Value Reference Range Interpretation Comments Gram Stain Report Gram Stain Performed By: (test code = [facility] St[facility] Report) [facility]: Respiratory w/Gram Txnkr0409-61-76 17:16:00 Test Item Value Reference Range Interpretation Comments Culture: Respiratory Moderate Yeast Normal w/Gram Stain (test code Respiratory Lyndsay = Culture: Respiratory Isolated w/Gram Stain) [facility] Rgmyyb0593-95-37 17:16:00 Test Item Value Reference Range Interpretation Comments Gram Stain Report Gram Stain Performed By: (test code = [facility] St[facility] Report) [facility] w/Gram Csvkt3694-49-33 17:16:00 Test Item Value Reference Range Interpretation Comments Culture: Respiratory Moderate Yeast Normal w/Gram Stain (test code Respiratory Lyndsay = Culture: Respiratory Isolated w/Gram Stain) [facility] Ggmbli2017-02-56 17:16:00 Test Item Value Reference Range Interpretation Comments Gram Stain Report Gram Stain Performed By: (test code = [facility] St[facility] Report) [facility]: Respiratory w/Gram Dsnoz2741-81-22 17:16:00 Test Item Value Reference Range Interpretation Comments Culture: Respiratory Moderate Yeast Normal w/Gram Stain (test code Respiratory Lyndsay = Culture: Respiratory Isolated w/Gram Stain) [facility] Nfedgo3252-77-66 17:16:00 Test Item Value Reference Range Interpretation Comments Gram Stain Report Gram Stain Performed By: (test code = [facility] [facility] Report) [facility]: Respiratory w/Gram Uihdo1322-73-92 17:16:00 Test Item Value Reference Range Interpretation Comments Culture: Respiratory Moderate Yeast Normal w/Gram Stain (test code Respiratory Lyndsay = Culture: Respiratory Isolated w/Gram Stain) [facility] Csavby2193-33-64 17:16:00 Test Item Value Reference Range Interpretation Comments Gram Stain Report Gram Stain Performed By: (test code = [facility] [facility] Report) [facility]: Respiratory w/Gram Iktkn0959-01-72 17:16:00 Test Item Value Reference Range Interpretation Comments Culture: Respiratory Moderate Yeast Normal w/Gram Stain (test code Respiratory Lyndsay = Culture: Respiratory Isolated w/Gram Stain) [facility] Poqwel5504-42-88 17:16:00 Test Item Value Reference Range Interpretation Comments Gram Stain Report Gram Stain Performed By: (test code = [facility] Report) [facility]: Respiratory w/Gram Aleip3929-60-95 17:16:00 Test Item Value Reference Range Interpretation Comments Culture: Respiratory Moderate Yeast Normal w/Gram Stain (test code Respiratory Lyndsay = Culture: Respiratory Isolated w/Gram Stain) [facility] Xekvic8464-01-54 17:16:00 Test Item Value Reference Range Interpretation Comments Gram Stain Report Gram Stain Performed By: (test code = [facility] Report) [facility] Hospital[facility]: Respiratory w/Gram Mwkki0777-90-58 17:16:00 Test Item Value Reference Range Interpretation Comments Culture: Respiratory Moderate Yeast Normal w/Gram Stain (test code Respiratory Lyndsay = Culture: Respiratory Isolated w/Gram Stain) [facility] Arqrgp7733-91-21 17:16:00 Test Item Value Reference Range Interpretation Comments Gram Stain Report Gram Stain Performed By: (test code = [facility] Report) [facility]: Respiratory w/Gram Mcgbn8571-09-95 17:16:00 Test Item Value Reference Range Interpretation Comments Culture: Respiratory Moderate Yeast Normal w/Gram Stain (test code Respiratory Lyndsay = Culture: Respiratory Isolated w/Gram Stain) [facility] Xqpbaj8696-91-65 17:16:00 Test Item Value Reference Range Interpretation Comments Gram Stain Report Gram Stain Performed By: (test code = [facility] Report) [facility]: Respiratory w/Gram Holwe1162-96-65 17:16:00 Test Item Value Reference Range Interpretation Comments Culture: Respiratory Moderate Yeast Normal w/Gram Stain (test code Respiratory Lyndsay = Culture: Respiratory Isolated w/Gram Stain) [facility]2022-07-18 09:04:00 Test Item Value Reference Range Interpretation Comments Glucose Lvl (test code = Glucose Lvl) 59 70-99 [place] 509392-07-18 09:04:00 Test Item Value Reference Range Interpretation Comments BUN (test code = BUN) 41 7-22 [place] 509392-07-18 09:04:00 Test Item Value Reference Range Interpretation Comments Creatinine Lvl (test code = Creatinine 7.00 0.50-1.40 Lvl) [place] 509392-07-18 09:04:00 Test Item Value Reference Range Interpretation Comments Sodium Lvl (test code = Sodium Lvl) 134 135-145 [place] 509392-07-18 09:04:00 Test Item Value Reference Range Interpretation Comments Potassium Lvl (test code = Potassium 4.0 3.5-5.1 Lvl) [place] 509392-07-18 09:04:00 Test Item Value Reference Range Interpretation Comments Chloride Lvl (test code = Chloride Lvl) 102 95-109 [place] 509392-07-18 09:04:00 Test Item Value Reference Range Interpretation Comments CO2 (test code = CO2) 25 24-32 [place] 509392-07-18 09:04:00 Test Item Value Reference Range Interpretation Comments Calcium Lvl (test code = Calcium Lvl) 9.1 8.5-10.5 [place] 509392-07-18 09:04:00 Test Item Value Reference Range Interpretation Comments Total Protein (test code = Total 6.2 6.4-8.4 Protein) [place] 509392-07-18 09:04:00 Test Item Value Reference Range Interpretation Comments Albumin Lvl (test code = Albumin Lvl) 2.8 3.5-5.0 [place] 509392-07-18 09:04:00 Test Item Value Reference Range Interpretation Comments ALT (test code = ALT) 78 See_Comment [Auto mated message] The system which ge nerated this result transmit swathi reference range : <=65. The reference range was not used to interpr et this result as deny l/abnormal. [place] 509392-07-18 09:04:00 Test Item Value Reference Range Interpretation Comments AST (test code = AST) 117 See_Comment [Auto mated message] The system which ge nerated this result transmit swathi reference range : <=37. The reference range was not used to interpr et this result as deny l/abnormal. [place] 509392-07-18 09:04:00 Test Item Value Reference Range Interpretation Comments Alk Phos (test code = Alk Phos) 251 39-136 [place] 509392-07-18 09:04:00 Test Item Value Reference Range Interpretation Comments Bili Total (test code = Bili Total) 0.9 0.2-1.3 [place] 509392-07-18 09:04:00 Test Item Value Reference Range Interpretation Comments AGAP (test code = AGAP) 11.0 10.0-20.0 [place] 509392-07-18 09:04:00 Test Item Value Reference Range Interpretation Comments B/C Ratio (test code = B/C Ratio) 6 1 6-25 [place] 509392-07-18 09:04:00 Test Item Value Reference Range Interpretation Comments Globulin (test code = Globulin) 3.4 2.7-4.2 [place] 509392-07-18 09:04:00 Test Item Value Reference Range Interpretation Comments A/G Ratio (test code = A/G Ratio) 0.8 1 0.7-1.6 [place] 509392-07-18 09:04:00 Test Item Value Reference Range Interpretation Comments eGFR (test code = eGFR) 8 [place] 796562-07-18 09:04:00 Test Item Value Reference Range Interpretation Comments D-Dimer (test code = D-Dimer) 3.03 [place] 796562-07-18 09:04:00 Test Item Value Reference Range Interpretation Comments WBC (test code = WBC) 3.6 3.7-10.4 [place] 796562-07-18 09:04:00 Test Item Value Reference Range Interpretation Comments RBC (test code = RBC) 2.07 4.70-6.10 [place] [address]-07-18 09:04:00 Test Item Value Reference Range Interpretation Comments Hgb (test code = Hgb) 7.5 14.0-18.0 [place] 796562-07-18 09:04:00 Test Item Value Reference Range Interpretation Comments Hct (test code = Hct) 22.0 42.0-54.0 [facility]villeEacpdygWBPTBMTBOR5018-08-37 09:04:00 Test Item Value Reference Range Interpretation Comments MCV (test code = MCV) 106.3 80.0-94.0 [place] 796562-07-18 09:04:00 Test Item Value Reference Range Interpretation Comments MCH (test code = MCH) 36.1 pg 27.0-31.0 [place] 796562-07-18 09:04:00 Test Item Value Reference Range Interpretation Comments MCHC (test code = MCHC) 33.9 32.0-36.0 [facility] GreenvilleZlivrrvMFCKBLBIKG3977-46-86 09:04:00 Test Item Value Reference Range Interpretation Comments RDW (test code = RDW) 23.9 11.5-14.5 [facility] GreenvilleGkldwzjEFWAJJWWMW9595-00-03 09:04:00 Test Item Value Reference Range Interpretation Comments Platelet (test code = Platelet) 133 133-450 [facility] GreenvilleSotqnynNGXEALVKVH6450-03-02 09:04:00 Test Item Value Reference Range Interpretation Comments MPV (test code = MPV) 8.1 7.4-10.4 [place] [address]-07-18 09:04:00 Test Item Value Reference Range Interpretation Comments Segs (test code = Segs) 60.8 45.0-75.0 [place] 796562-07-18 09:04:00 Test Item Value Reference Range Interpretation Comments Lymphocytes (test code = Lymphocytes) 22.3 20.0-40.0 [place] 796562-07-18 09:04:00 Test Item Value Reference Range Interpretation Comments Monocytes (test code = Monocytes) 13.9 2.0-12.0 [place] 796562-07-18 09:04:00 Test Item Value Reference Range Interpretation Comments Eosinophils (test code = 2.6 See_Comment [A utomated message] The Eosinophils) system which ge nerated this result tra nsmitted reference range : <=4.0. The reference r samantha was not used to int erpret this result as normal/abnormal . [facility] CenterYdjtutcTFOPCJZIHX0662-01-07 09:04:00 Test Item Value Reference Range Interpretation Comments Basophils (test code = 0.4 See_Comment [Aut omated message] The Basophils) system which ge nerated this result tra nsmitted reference range : <=1.0. The reference r samantha was not used to int erpret this result as normal/abnormal . [facility] SurgeryMqplantLRVUFRRGPR1793-85-74 09:04:00 Test Item Value Reference Range Interpretation Comments Neutrophils # (test code = Neutrophils 2.2 1.5-8.1 #) [facility]villeBdlnqriRSZYECGFEJ5184-68-32 09:04:00 Test Item Value Reference Range Interpretation Comments Lymphocytes # (test code = Lymphocytes 0.8 1.0-5.5 #) [facility] GreenvilleYxehljkNKUQSAKAUF6816-27-74 09:04:00 Test Item Value Reference Range Interpretation Comments Monocytes # (test code 0.5 See_Comment [Aut omated message] The = Monocytes #) system which generated this result tra nsmitted reference range : <=0.8. The reference r samantha was not used to int erpret this result as normal/abnormal . [facility] CenterUzphpzwOMSFNLZVVA1053-88-33 09:04:00 Test Item Value Reference Range Interpretation Comments Eosinophils # (test code 0.1 See_Comment [A utomated message] The = Eosinophils #) system whic h generated this result tra nsmitted reference range : <=0.5. The reference r samantha was not used to int erpret this result as normal/abnormal . [facility] CenterDltfaoxXAWHMAUMEJ4486-92-45 09:04:00 Test Item Value Reference Range Interpretation Comments Macrocyte (test code = 1+ *ABN*(12/15/21 Macrocyte) 4:04 AM) [facility] CenterBuucuyiSMQQUVZTTQ8025-44-51 09:04:00 Test Item Value Reference Range Interpretation Comments C-REACTIVE PROTEIN (test code = 25.1 C-REACTIVE PROTEIN) [facility] CenterHeohkwsBJKCXJHMMI2815-45-72 09:04:00 Test Item Value Reference Range Interpretation Comments Vanco Lvl (test code = Vanco Lvl) 15.2 [facility] CenterCHEM NASZC6093-99-45 09:04:00 Test Item Value Reference Range Interpretation Comments Glucose Lvl (test code = Glucose Lvl) 59 70-99 [place] 509392-07-18 09:04:00 Test Item Value Reference Range Interpretation Comments BUN (test code = BUN) 41 7-22 [place] 509392-07-18 09:04:00 Test Item Value Reference Range Interpretation Comments Creatinine Lvl (test code = Creatinine 7.00 0.50-1.40 Lvl) [place] 509392-07-18 09:04:00 Test Item Value Reference Range Interpretation Comments Sodium Lvl (test code = Sodium Lvl) 134 135-145 [place] 509392-07-18 09:04:00 Test Item Value Reference Range Interpretation Comments Potassium Lvl (test code = Potassium 4.0 3.5-5.1 Lvl) [place] 509392-07-18 09:04:00 Test Item Value Reference Range Interpretation Comments Chloride Lvl (test code = Chloride Lvl) 102 95-109 [place] 509392-07-18 09:04:00 Test Item Value Reference Range Interpretation Comments CO2 (test code = CO2) 25 24-32 [place] 509392-07-18 09:04:00 Test Item Value Reference Range Interpretation Comments Calcium Lvl (test code = Calcium Lvl) 9.1 8.5-10.5 [place] 509392-07-18 09:04:00 Test Item Value Reference Range Interpretation Comments Total Protein (test code = Total 6.2 6.4-8.4 Protein) [place] 509392-07-18 09:04:00 Test Item Value Reference Range Interpretation Comments Albumin Lvl (test code = Albumin Lvl) 2.8 3.5-5.0 [place] 509392-07-18 09:04:00 Test Item Value Reference Range Interpretation Comments ALT (test code = ALT) 78 See_Comment [Auto mated message] The system which ge nerated this result transmit swathi reference range : <=65. The reference range was not used to interpr et this result as deny l/abnormal. [place] 509392-07-18 09:04:00 Test Item Value Reference Range Interpretation Comments AST (test code = AST) 117 See_Comment [Auto mated message] The system which ge nerated this result transmit swathi reference range : <=37. The reference range was not used to interpr et this result as deny l/abnormal. [facility] CenterPlay[facility] Energy LMIJV5104-17-42 09:04:00 Test Item Value Reference Range Interpretation Comments Alk Phos (test code = Alk Phos) 251 39-136 [place] [address]-07-18 09:04:00 Test Item Value Reference Range Interpretation Comments Bili Total (test code = Bili Total) 0.9 0.2-1.3 [place] 509392-07-18 09:04:00 Test Item Value Reference Range Interpretation Comments AGAP (test code = AGAP) 11.0 10.0-20.0 [place] 509392-07-18 09:04:00 Test Item Value Reference Range Interpretation Comments B/C Ratio (test code = B/C Ratio) 6 1 6-25 [place] [address]-07-18 09:04:00 Test Item Value Reference Range Interpretation Comments Globulin (test code = Globulin) 3.4 2.7-4.2 [facility] CenterPlay[facility] RWUEY6034-27-36 09:04:00 Test Item Value Reference Range Interpretation Comments A/G Ratio (test code = A/G Ratio) 0.8 1 0.7-1.6 [place] [address]-07-18 09:04:00 Test Item Value Reference Range Interpretation Comments eGFR (test code = eGFR) 8 [place] 796562-07-18 09:04:00 Test Item Value Reference Range Interpretation Comments D-Dimer (test code = D-Dimer) 3.03 [place] [address]-07-18 09:04:00 Test Item Value Reference Range Interpretation Comments WBC (test code = WBC) 3.6 3.7-10.4 [place] [address]-07-18 09:04:00 Test Item Value Reference Range Interpretation Comments RBC (test code = RBC) 2.07 4.70-6.10 [place] [address]-07-18 09:04:00 Test Item Value Reference Range Interpretation Comments Hgb (test code = Hgb) 7.5 14.0-18.0 [place] [address]-07-18 09:04:00 Test Item Value Reference Range Interpretation Comments Hct (test code = Hct) 22.0 42.0-54.0 [facility] GreenvilleAywwqiyAUTCMPTGJM8176-72-94 09:04:00 Test Item Value Reference Range Interpretation Comments MCV (test code = MCV) 106.3 80.0-94.0 [place] 796562-07-18 09:04:00 Test Item Value Reference Range Interpretation Comments MCH (test code = MCH) 36.1 pg 27.0-31.0 [place] 796562-07-18 09:04:00 Test Item Value Reference Range Interpretation Comments MCHC (test code = MCHC) 33.9 32.0-36.0 [place] 796562-07-18 09:04:00 Test Item Value Reference Range Interpretation Comments RDW (test code = RDW) 23.9 11.5-14.5 [place] 796562-07-18 09:04:00 Test Item Value Reference Range Interpretation Comments Platelet (test code = Platelet) 133 133-450 [facility] GreenvillePqwkmcoOQDUOOKUWA0552-07-42 09:04:00 Test Item Value Reference Range Interpretation Comments MPV (test code = MPV) 8.1 7.4-10.4 [place] 796562-07-18 09:04:00 Test Item Value Reference Range Interpretation Comments Segs (test code = Segs) 60.8 45.0-75.0 [place] 796562-07-18 09:04:00 Test Item Value Reference Range Interpretation Comments Lymphocytes (test code = Lymphocytes) 22.3 20.0-40.0 [place] 796562-07-18 09:04:00 Test Item Value Reference Range Interpretation Comments Monocytes (test code = Monocytes) 13.9 2.0-12.0 [place] [address]-07-18 09:04:00 Test Item Value Reference Range Interpretation Comments Eosinophils (test code = 2.6 See_Comment [A utomated message] The Eosinophils) system which ge nerated this result tra nsmitted reference range : <=4.0. The reference r samantha was not used to int erpret this result as normal/abnormal . [facility] GreenvilleAfquwzuJMFDUJSABX6099-86-44 09:04:00 Test Item Value Reference Range Interpretation Comments Basophils (test code = 0.4 See_Comment [Aut omated message] The Basophils) system which ge nerated this result tra nsmitted reference range : <=1.0. The reference r samantha was not used to int erpret this result as normal/abnormal . [facility] GreenvilleFufjvwlDFKCMYTFUL5019-70-42 09:04:00 Test Item Value Reference Range Interpretation Comments Neutrophils # (test code = Neutrophils 2.2 1.5-8.1 #) [facility] GreenvilleOwmitssNWYJHWNBLH3409-47-31 09:04:00 Test Item Value Reference Range Interpretation Comments Lymphocytes # (test code = Lymphocytes 0.8 1.0-5.5 #) [facility] GreenvilleZgzjqsbQGIZPPOVID0227-20-04 09:04:00 Test Item Value Reference Range Interpretation Comments Monocytes # (test code 0.5 See_Comment [Aut omated message] The = Monocytes #) system which generated this result tra nsmitted reference range : <=0.8. The reference r samantha was not used to int erpret this result as normal/abnormal . [facility] GreenvilleNhrkbeeCIHYPXNYJO7871-96-48 09:04:00 Test Item Value Reference Range Interpretation Comments Eosinophils # (test code 0.1 See_Comment [A utomated message] The = Eosinophils #) system whic h generated this result tra nsmitted reference range : <=0.5. The reference r samantha was not used to int erpret this result as normal/abnormal . [facility] GreenvilleOwrxcnvJTRROPAZYU1186-48-44 09:04:00 Test Item Value Reference Range Interpretation Comments Macrocyte (test code = 1+ *ABN*(12/15/21 Macrocyte) 4:04 AM) [facility] CenterAspoxnzWUTDMXCWUP0553-37-22 09:04:00 Test Item Value Reference Range Interpretation Comments C-REACTIVE PROTEIN (test code = 25.1 C-REACTIVE PROTEIN) [facility] CenterZejsfrnEQFWUJRWFJ9650-15-41 09:04:00 Test Item Value Reference Range Interpretation Comments Vanco Lvl (test code = Vanco Lvl) 15.2 [facility] SXDZW3790-88-89 09:04:00 Test Item Value Reference Range Interpretation Comments Glucose Lvl (test code = Glucose Lvl) 59 70-99 [facility]2022-07-18 09:04:00 Test Item Value Reference Range Interpretation Comments BUN (test code = BUN) 41 7-22 [facility] CenterPlay[facility] [id number] 09:04:00 Test Item Value Reference Range Interpretation Comments Creatinine Lvl (test code = Creatinine 7.00 0.50-1.40 Lvl) [place] 509392-07-18 09:04:00 Test Item Value Reference Range Interpretation Comments Sodium Lvl (test code = Sodium Lvl) 134 135-145 [place] 509392-07-18 09:04:00 Test Item Value Reference Range Interpretation Comments Potassium Lvl (test code = Potassium 4.0 3.5-5.1 Lvl) [place] 509392-07-18 09:04:00 Test Item Value Reference Range Interpretation Comments Chloride Lvl (test code = Chloride Lvl) 102 95-109 [place] 509392-07-18 09:04:00 Test Item Value Reference Range Interpretation Comments CO2 (test code = CO2) 25 24-32 [place] 509392-07-18 09:04:00 Test Item Value Reference Range Interpretation Comments Calcium Lvl (test code = Calcium Lvl) 9.1 8.5-10.5 [place] 509392-07-18 09:04:00 Test Item Value Reference Range Interpretation Comments Total Protein (test code = Total 6.2 6.4-8.4 Protein) [place] 509392-07-18 09:04:00 Test Item Value Reference Range Interpretation Comments Albumin Lvl (test code = Albumin Lvl) 2.8 3.5-5.0 [place] 509392-07-18 09:04:00 Test Item Value Reference Range Interpretation Comments ALT (test code = ALT) 78 See_Comment [Auto mated message] The system which nerated this result transmit swathi reference range : <=65. The reference range was not used to interpr et this result as deny l/abnormal. [place] 509392-07-18 09:04:00 Test Item Value Reference Range Interpretation Comments AST (test code = AST) 117 See_Comment [Auto mated message] The system which Memoright nerated this result transmit swathi reference range : <=37. The reference range was not used to interpr et this result as deny l/abnormal. [place] [address]-07-18 09:04:00 Test Item Value Reference Range Interpretation Comments Alk Phos (test code = Alk Phos) 251 39-136 [place] 509392-07-18 09:04:00 Test Item Value Reference Range Interpretation Comments Bili Total (test code = Bili Total) 0.9 0.2-1.3 [place] 509392-07-18 09:04:00 Test Item Value Reference Range Interpretation Comments AGAP (test code = AGAP) 11.0 10.0-20.0 [place] 509392-07-18 09:04:00 Test Item Value Reference Range Interpretation Comments B/C Ratio (test code = B/C Ratio) 6 1 6-25 [place] 509392-07-18 09:04:00 Test Item Value Reference Range Interpretation Comments Globulin (test code = Globulin) 3.4 2.7-4.2 [place] 509392-07-18 09:04:00 Test Item Value Reference Range Interpretation Comments Glucose Lvl (test code = Glucose Lvl) 59 70-99 [place] 509392-07-18 09:04:00 Test Item Value Reference Range Interpretation Comments BUN (test code = BUN) 41 7-22 [place] 509392-07-18 09:04:00 Test Item Value Reference Range Interpretation Comments Creatinine Lvl (test code = Creatinine 7.00 0.50-1.40 Lvl) [place] 509392-07-18 09:04:00 Test Item Value Reference Range Interpretation Comments Sodium Lvl (test code = Sodium Lvl) 134 135-145 [place] 509392-07-18 09:04:00 Test Item Value Reference Range Interpretation Comments Potassium Lvl (test code = Potassium 4.0 3.5-5.1 Lvl) [place] 509392-07-18 09:04:00 Test Item Value Reference Range Interpretation Comments Chloride Lvl (test code = Chloride Lvl) 102 95-109 [place] 509392-07-18 09:04:00 Test Item Value Reference Range Interpretation Comments CO2 (test code = CO2) 25 24-32 [place] 509392-07-18 09:04:00 Test Item Value Reference Range Interpretation Comments Calcium Lvl (test code = Calcium Lvl) 9.1 8.5-10.5 [place] 509392-07-18 09:04:00 Test Item Value Reference Range Interpretation Comments Total Protein (test code = Total 6.2 6.4-8.4 Protein) [place] [address]-07-18 09:04:00 Test Item Value Reference Range Interpretation Comments A/G Ratio (test code = A/G Ratio) 0.8 1 0.7-1.6 [place] [address]-07-18 09:04:00 Test Item Value Reference Range Interpretation Comments Albumin Lvl (test code = Albumin Lvl) 2.8 3.5-5.0 [place] [address]-07-18 09:04:00 Test Item Value Reference Range Interpretation Comments ALT (test code = ALT) 78 See_Comment [Auto mated message] The system which ge nerated this result transmit swathi reference range : <=65. The reference range was not used to interpr et this result as deny l/abnormal. [place] [address]-07-18 09:04:00 Test Item Value Reference Range Interpretation Comments AST (test code = AST) 117 See_Comment [Auto mated message] The system which ge nerated this result transmit swathi reference range : <=37. The reference range was not used to interpr et this result as deny l/abnormal. [facility] CenterPlay[facility] Energy [id number] 09:04:00 Test Item Value Reference Range Interpretation Comments Alk Phos (test code = Alk Phos) 251 39-136 [place] 509392-07-18 09:04:00 Test Item Value Reference Range Interpretation Comments Bili Total (test code = Bili Total) 0.9 0.2-1.3 [place] [address]-07-18 09:04:00 Test Item Value Reference Range Interpretation Comments AGAP (test code = AGAP) 11.0 10.0-20.0 [facility] HospitalS[facility] [id number] 09:04:00 Test Item Value Reference Range Interpretation Comments B/C Ratio (test code = B/C Ratio) 6 1 6-25 [place] [address]-07-18 09:04:00 Test Item Value Reference Range Interpretation Comments Globulin (test code = Globulin) 3.4 2.7-4.2 [facility] CenterPlay[facility] [id number] 09:04:00 Test Item Value Reference Range Interpretation Comments A/G Ratio (test code = A/G Ratio) 0.8 1 0.7-1.6 [facility] [id number] 09:04:00 Test Item Value Reference Range Interpretation Comments eGFR (test code = eGFR) 8 [facility] [id number] 09:04:00 Test Item Value Reference Range Interpretation Comments eGFR (test code = eGFR) 8 [facility]villeIicdqvnQGYPYTSRRV4625-44-79 09:04:00 Test Item Value Reference Range Interpretation Comments D-Dimer (test code = D-Dimer) 3.03 [facility] GreenvilleXyxpsjtFKGNIYDYHT5056-33-25 09:04:00 Test Item Value Reference Range Interpretation Comments WBC (test code = WBC) 3.6 3.7-10.4 [place] 796562-07-18 09:04:00 Test Item Value Reference Range Interpretation Comments RBC (test code = RBC) 2.07 4.70-6.10 [facility] GreenvilleNapmovnSAFAEMZEAE6179-25-49 09:04:00 Test Item Value Reference Range Interpretation Comments Hgb (test code = Hgb) 7.5 14.0-18.0 [facility] GreenvilleMlqqfazKTINXVYWBV1199-70-36 09:04:00 Test Item Value Reference Range Interpretation Comments Hct (test code = Hct) 22.0 42.0-54.0 [facility] GreenvilleCmjqcasGRJAIYWQAE6948-97-13 09:04:00 Test Item Value Reference Range Interpretation Comments MCV (test code = MCV) 106.3 80.0-94.0 [facility] GreenvilleCptogyfXETNCSOUHR0689-13-21 09:04:00 Test Item Value Reference Range Interpretation Comments MCH (test code = MCH) 36.1 pg 27.0-31.0 [facility] GreenvilleVtknarvLLZKEQTPQZ0150-19-58 09:04:00 Test Item Value Reference Range Interpretation Comments MCHC (test code = MCHC) 33.9 32.0-36.0 [place] 796562-07-18 09:04:00 Test Item Value Reference Range Interpretation Comments RDW (test code = RDW) 23.9 11.5-14.5 [place] 796562-07-18 09:04:00 Test Item Value Reference Range Interpretation Comments Platelet (test code = Platelet) 133 133-450 [facility] GreenvilleYhbvsrqBVSYHPGGBM9023-58-66 09:04:00 Test Item Value Reference Range Interpretation Comments D-Dimer (test code = D-Dimer) 3.03 [facility] GreenvilleQpfokbeAVHZPTNUTM7485-12-63 09:04:00 Test Item Value Reference Range Interpretation Comments MPV (test code = MPV) 8.1 7.4-10.4 [place] 796562-07-18 09:04:00 Test Item Value Reference Range Interpretation Comments Segs (test code = Segs) 60.8 45.0-75.0 [place] 796562-07-18 09:04:00 Test Item Value Reference Range Interpretation Comments Lymphocytes (test code = Lymphocytes) 22.3 20.0-40.0 [place] [address]-07-18 09:04:00 Test Item Value Reference Range Interpretation Comments Monocytes (test code = Monocytes) 13.9 2.0-12.0 [place] 796562-07-18 09:04:00 Test Item Value Reference Range Interpretation Comments Eosinophils (test code = 2.6 See_Comment [A utomated message] The Eosinophils) system which ge nerated this result tra nsmitted reference range : <=4.0. The reference r samantha was not used to int erpret this result as normal/abnormal . [facility] GreenvilleKdfevmvMXSOFDYCTE0392-81-33 09:04:00 Test Item Value Reference Range Interpretation Comments Basophils (test code = 0.4 See_Comment [Aut omated message] The Basophils) system which ge nerated this result tra nsmitted reference range : <=1.0. The reference r samantha was not used to int erpret this result as normal/abnormal . [facility] GreenvilleZoqjdyeKNTJKCHDIU9846-39-35 09:04:00 Test Item Value Reference Range Interpretation Comments Neutrophils # (test code = Neutrophils 2.2 1.5-8.1 #) [place] 796562-07-18 09:04:00 Test Item Value Reference Range Interpretation Comments Lymphocytes # (test code = Lymphocytes 0.8 1.0-5.5 #) [place] [address]-07-18 09:04:00 Test Item Value Reference Range Interpretation Comments Monocytes # (test code 0.5 See_Comment [Aut omated message] The = Monocytes #) system which generated this result tra nsmitted reference range : <=0.8. The reference r samantha was not used to int erpret this result as normal/abnormal . [facility] GreenvilleBdrxgtbFYQZSPUVXI2507-92-41 09:04:00 Test Item Value Reference Range Interpretation Comments Eosinophils # (test code 0.1 See_Comment [A utomated message] The = Eosinophils #) system whic h generated this result tra nsmitted reference range : <=0.5. The reference r samantha was not used to int erpret this result as normal/abnormal . [facility]villeHrgviafWQOFGURJCW5102-74-78 09:04:00 Test Item Value Reference Range Interpretation Comments WBC (test code = WBC) 3.6 3.7-10.4 [facility]villeHzebqosEVUZFQXOLT6563-42-04 09:04:00 Test Item Value Reference Range Interpretation Comments Macrocyte (test code = 1+ *ABN*(12/15/21 Macrocyte) 4:04 AM) [facility] CenterAmdihsyYVLWITDRSI9341-92-17 09:04:00 Test Item Value Reference Range Interpretation Comments C-REACTIVE PROTEIN (test code = 25.1 C-REACTIVE PROTEIN) [facility] CenterHfdhwjlAZYLITJGXC5582-33-04 09:04:00 Test Item Value Reference Range Interpretation Comments Vanco Lvl (test code = Vanco Lvl) 15.2 [facility]villeHmjjlklHDBBCNHOQB4611-52-20 09:04:00 Test Item Value Reference Range Interpretation Comments RBC (test code = RBC) 2.07 4.70-6.10 [facility] GreenvilleRkxcrexEDLHHVWWDR8598-30-45 09:04:00 Test Item Value Reference Range Interpretation Comments Hgb (test code = Hgb) 7.5 14.0-18.0 [facility] GreenvilleHdmxvynGZZNSBQPHP4734-83-49 09:04:00 Test Item Value Reference Range Interpretation Comments Hct (test code = Hct) 22.0 42.0-54.0 [facility] CenterTfyvsthLFVVVPVMLX8625-04-82 09:04:00 Test Item Value Reference Range Interpretation Comments MCV (test code = MCV) 106.3 80.0-94.0 [facility] SurgeryMdxqjdxESDDNPARMW7542-46-84 09:04:00 Test Item Value Reference Range Interpretation Comments MCH (test code = MCH) 36.1 pg 27.0-31.0 [facility] CenterJjpmitpTLJWGDUMTG6750-83-87 09:04:00 Test Item Value Reference Range Interpretation Comments MCHC (test code = MCHC) 33.9 32.0-36.0 [place] [address]-07-18 09:04:00 Test Item Value Reference Range Interpretation Comments RDW (test code = RDW) 23.9 11.5-14.5 [place] 796562-07-18 09:04:00 Test Item Value Reference Range Interpretation Comments Platelet (test code = Platelet) 133 133-450 [place] 796562-07-18 09:04:00 Test Item Value Reference Range Interpretation Comments MPV (test code = MPV) 8.1 7.4-10.4 [place] [address]-07-18 09:04:00 Test Item Value Reference Range Interpretation Comments Segs (test code = Segs) 60.8 45.0-75.0 [place] [address]-07-18 09:04:00 Test Item Value Reference Range Interpretation Comments Lymphocytes (test code = Lymphocytes) 22.3 20.0-40.0 [place] 796562-07-18 09:04:00 Test Item Value Reference Range Interpretation Comments Monocytes (test code = Monocytes) 13.9 2.0-12.0 [place] 796562-07-18 09:04:00 Test Item Value Reference Range Interpretation Comments Eosinophils (test code = 2.6 See_Comment [A utomated message] The Eosinophils) system which ge nerated this result tra nsmitted reference range : <=4.0. The reference r samantha was not used to int erpret this result as normal/abnormal . [place] 796562-07-18 09:04:00 Test Item Value Reference Range Interpretation Comments Basophils (test code = 0.4 See_Comment [Aut omated message] The Basophils) system which ge nerated this result tra nsmitted reference range : <=1.0. The reference r samantha was not used to int erpret this result as normal/abnormal . [place] 796562-07-18 09:04:00 Test Item Value Reference Range Interpretation Comments Neutrophils # (test code = Neutrophils 2.2 1.5-8.1 #) [place] 796562-07-18 09:04:00 Test Item Value Reference Range Interpretation Comments Lymphocytes # (test code = Lymphocytes 0.8 1.0-5.5 #) [place] 796562-07-18 09:04:00 Test Item Value Reference Range Interpretation Comments Monocytes # (test code 0.5 See_Comment [Aut omated message] The = Monocytes #) system which generated this result tra nsmitted reference range : <=0.8. The reference r samantha was not used to int erpret this result as normal/abnormal . [facility]villeKcoldbxOIRKJYJVIC6273-12-08 09:04:00 Test Item Value Reference Range Interpretation Comments Eosinophils # (test code 0.1 See_Comment [A utomated message] The = Eosinophils #) system whic h generated this result tra nsmitted reference range : <=0.5. The reference r samantha was not used to int erpret this result as normal/abnormal . [facility] GreenvilleHbofwheZIBNLCRWWS4373-55-77 09:04:00 Test Item Value Reference Range Interpretation Comments Macrocyte (test code = 1+ *ABN*(12/15/21 Macrocyte) 4:04 AM) [facility] CenterHygwlshYLLGPXUXFG0296-12-19 09:04:00 Test Item Value Reference Range Interpretation Comments C-REACTIVE PROTEIN (test code = 25.1 C-REACTIVE PROTEIN) [facility] CenterZyxsanzPYRCFJODAW3138-09-94 09:04:00 Test Item Value Reference Range Interpretation Comments Vanco Lvl (test code = Vanco Lvl) 15.2 [facility] CenterPlay[facility] [id number] 09:04:00 Test Item Value Reference Range Interpretation Comments Glucose Lvl (test code = Glucose Lvl) 59 70-99 [facility] CenterPlay[facility] [id number] 09:04:00 Test Item Value Reference Range Interpretation Comments BUN (test code = BUN) 41 7-22 [facility] [id number] 09:04:00 Test Item Value Reference Range Interpretation Comments Creatinine Lvl (test code = Creatinine 7.00 0.50-1.40 Lvl) [facility] [id number] 09:04:00 Test Item Value Reference Range Interpretation Comments Sodium Lvl (test code = Sodium Lvl) 134 135-145 [facility]2022-07-18 09:04:00 Test Item Value Reference Range Interpretation Comments Potassium Lvl (test code = Potassium 4.0 3.5-5.1 Lvl) [facility] [id number] 09:04:00 Test Item Value Reference Range Interpretation Comments Chloride Lvl (test code = Chloride Lvl) 102 95-109 [facility] [id number] 09:04:00 Test Item Value Reference Range Interpretation Comments CO2 (test code = CO2) 25 24-32 [facility] RJTYM1033-30-73 09:04:00 Test Item Value Reference Range Interpretation Comments Calcium Lvl (test code = Calcium Lvl) 9.1 8.5-10.5 [facility] [id number] 09:04:00 Test Item Value Reference Range Interpretation Comments Total Protein (test code = Total 6.2 6.4-8.4 Protein) [facility] HospitalFlynnUNC HEALTH SOUTHEASTERNGPDJQ8437-41-16 09:04:00 Test Item Value Reference Range Interpretation Comments Albumin Lvl (test code = Albumin Lvl) 2.8 3.5-5.0 [facility] [id number] 09:04:00 Test Item Value Reference Range Interpretation Comments ALT (test code = ALT) 78 See_Comment [Auto mated message] The system which ge nerated this result transmit swathi reference range : <=65. The reference range was not used to interpr et this result as deny l/abnormal. [facility] [id number] 09:04:00 Test Item Value Reference Range Interpretation Comments AST (test code = AST) 117 See_Comment [Auto mated message] The system which ge nerated this result transmit swathi reference range : <=37. The reference range was not used to interpr et this result as deny l/abnormal. [facility] [id number] 09:04:00 Test Item Value Reference Range Interpretation Comments Alk Phos (test code = Alk Phos) 251 39-136 [facility] [id number] 09:04:00 Test Item Value Reference Range Interpretation Comments Bili Total (test code = Bili Total) 0.9 0.2-1.3 [facility] YNIFM6088-44-48 09:04:00 Test Item Value Reference Range Interpretation Comments AGAP (test code = AGAP) 11.0 10.0-20.0 [facility] [id number] 09:04:00 Test Item Value Reference Range Interpretation Comments B/C Ratio (test code = B/C Ratio) 6 1 6-25 [place] 509392-07-18 09:04:00 Test Item Value Reference Range Interpretation Comments Globulin (test code = Globulin) 3.4 2.7-4.2 [facility] [id number] 09:04:00 Test Item Value Reference Range Interpretation Comments A/G Ratio (test code = A/G Ratio) 0.8 1 0.7-1.6 [place] 509392-07-18 09:04:00 Test Item Value Reference Range Interpretation Comments eGFR (test code = eGFR) 8 [facility]villeRcsbnvwLMWQFOBELO3859-56-95 09:04:00 Test Item Value Reference Range Interpretation Comments D-Dimer (test code = D-Dimer) 3.03 [place] 796562-07-18 09:04:00 Test Item Value Reference Range Interpretation Comments WBC (test code = WBC) 3.6 3.7-10.4 [facility] GreenvilleIvcyvlgQZJDVFGNCB4885-40-30 09:04:00 Test Item Value Reference Range Interpretation Comments RBC (test code = RBC) 2.07 4.70-6.10 [facility] GreenvilleBmczhqpEZWBPOUOOP6046-80-31 09:04:00 Test Item Value Reference Range Interpretation Comments Hgb (test code = Hgb) 7.5 14.0-18.0 [facility] GreenvillePpunomeJFBSYCCSHZ4351-64-89 09:04:00 Test Item Value Reference Range Interpretation Comments Hct (test code = Hct) 22.0 42.0-54.0 [place] 796562-07-18 09:04:00 Test Item Value Reference Range Interpretation Comments MCV (test code = MCV) 106.3 80.0-94.0 [place] 796562-07-18 09:04:00 Test Item Value Reference Range Interpretation Comments MCH (test code = MCH) 36.1 pg 27.0-31.0 [facility] GreenvilleRfqnbnzZPJTHWKZZX8336-89-03 09:04:00 Test Item Value Reference Range Interpretation Comments MCHC (test code = MCHC) 33.9 32.0-36.0 [place] 796562-07-18 09:04:00 Test Item Value Reference Range Interpretation Comments RDW (test code = RDW) 23.9 11.5-14.5 [place] 796562-07-18 09:04:00 Test Item Value Reference Range Interpretation Comments Platelet (test code = Platelet) 133 133-450 [facility] GreenvilleDcyyxyjSKTUSJBFDF6427-36-93 09:04:00 Test Item Value Reference Range Interpretation Comments MPV (test code = MPV) 8.1 7.4-10.4 [place] 796562-07-18 09:04:00 Test Item Value Reference Range Interpretation Comments Segs (test code = Segs) 60.8 45.0-75.0 [place] 796562-07-18 09:04:00 Test Item Value Reference Range Interpretation Comments Lymphocytes (test code = Lymphocytes) 22.3 20.0-40.0 [place] 796562-07-18 09:04:00 Test Item Value Reference Range Interpretation Comments Monocytes (test code = Monocytes) 13.9 2.0-12.0 [place] 796562-07-18 09:04:00 Test Item Value Reference Range Interpretation Comments Eosinophils (test code = 2.6 See_Comment [A utomated message] The Eosinophils) system which ge nerated this result tra nsmitted reference range : <=4.0. The reference r samantha was not used to int erpret this result as normal/abnormal . [facility] GreenvilleKkixhumACCRRJWJYG8003-28-79 09:04:00 Test Item Value Reference Range Interpretation Comments Basophils (test code = 0.4 See_Comment [Aut omated message] The Basophils) system which ge nerated this result tra nsmitted reference range : <=1.0. The reference r samantha was not used to int erpret this result as normal/abnormal . [facility] GreenvilleZpqdyrgLPMMSCKVGC5925-38-77 09:04:00 Test Item Value Reference Range Interpretation Comments Neutrophils # (test code = Neutrophils 2.2 1.5-8.1 #) [place] 796562-07-18 09:04:00 Test Item Value Reference Range Interpretation Comments Lymphocytes # (test code = Lymphocytes 0.8 1.0-5.5 #) [place] [address]-07-18 09:04:00 Test Item Value Reference Range Interpretation Comments Monocytes # (test code 0.5 See_Comment [Aut omated message] The = Monocytes #) system which generated this result tra nsmitted reference range : <=0.8. The reference r samantha was not used to int erpret this result as normal/abnormal . [facility] CenterMaukyymLOEZMUFIWV6661-95-68 09:04:00 Test Item Value Reference Range Interpretation Comments Eosinophils # (test code 0.1 See_Comment [A utomated message] The = Eosinophils #) system whic h generated this result tra nsmitted reference range : <=0.5. The reference r samantha was not used to int erpret this result as normal/abnormal . [facility] SurgeryLvvpfbtMYPTUTGCXL3833-70-11 09:04:00 Test Item Value Reference Range Interpretation Comments Macrocyte (test code = 1+ *ABN*(12/15/21 Macrocyte) 4:04 AM) [facility] CenterMjmsgjbHSQBRJFZWD0797-69-48 09:04:00 Test Item Value Reference Range Interpretation Comments C-REACTIVE PROTEIN (test code = 25.1 C-REACTIVE PROTEIN) [facility] CenterLpakqitCCVAPMQAZZ2846-28-70 09:04:00 Test Item Value Reference Range Interpretation Comments Vanco Lvl (test code = Vanco Lvl) 15.2 [facility] CenterPlay[facility] [id number] 09:04:00 Test Item Value Reference Range Interpretation Comments Glucose Lvl (test code = Glucose Lvl) 59 70-99 [facility]2022-07-18 09:04:00 Test Item Value Reference Range Interpretation Comments BUN (test code = BUN) 41 7-22 [facility]2022-07-18 09:04:00 Test Item Value Reference Range Interpretation Comments Creatinine Lvl (test code = Creatinine 7.00 0.50-1.40 Lvl) [facility]2022-07-18 09:04:00 Test Item Value Reference Range Interpretation Comments Sodium Lvl (test code = Sodium Lvl) 134 135-145 [place] 509392-07-18 09:04:00 Test Item Value Reference Range Interpretation Comments Potassium Lvl (test code = Potassium 4.0 3.5-5.1 Lvl) [facility]2022-07-18 09:04:00 Test Item Value Reference Range Interpretation Comments Chloride Lvl (test code = Chloride Lvl) 102 95-109 [facility]2022-07-18 09:04:00 Test Item Value Reference Range Interpretation Comments CO2 (test code = CO2) 25 24-32 [facility] CenterPlay[facility] [id number] 09:04:00 Test Item Value Reference Range Interpretation Comments Calcium Lvl (test code = Calcium Lvl) 9.1 8.5-10.[address] [facility] [employer] [id number] 09:04:00 Test Item Value Reference Range Interpretation Comments Total Protein (test code = Total 6.2 6.4-8.4 Protein) [facility] [id number] 09:04:00 Test Item Value Reference Range Interpretation Comments Albumin Lvl (test code = Albumin Lvl) 2.8 3.5-5.[address] [facility] [employer] [id number] 09:04:00 Test Item Value Reference Range Interpretation Comments ALT (test code = ALT) 78 See_Comment [Auto mated message] The system which ge nerated this result transmit swathi reference range : <=65. The reference range was not used to interpr et this result as deny l/abnormal. [facility] [employer] [id number] 09:04:00 Test Item Value Reference Range Interpretation Comments AST (test code = AST) 117 See_Comment [Auto mated message] The system which ge nerated this result transmit swathi reference range : <=37. The reference range was not used to interpr et this result as deny l/abnormal. [facility] [employer] RNMBK4335-09-27 09:04:00 Test Item Value Reference Range Interpretation Comments Alk Phos (test code = Alk Phos) 251 39-[address] [facility] [employer] [id number] 09:04:00 Test Item Value Reference Range Interpretation Comments Bili Total (test code = Bili Total) 0.9 0.2-1.[address] [facility] [employer] [id number] 09:04:00 Test Item Value Reference Range Interpretation Comments AGAP (test code = AGAP) 11.0 10.0-20.[address] [facility] [employer] [id number] 09:04:00 Test Item Value Reference Range Interpretation Comments B/C Ratio (test code = B/C Ratio) 6 1 6-[address] [facility] [employer] [id number] 09:04:00 Test Item Value Reference Range Interpretation Comments Globulin (test code = Globulin) 3.4 2.7-4.[address] [facility] [employer] [id number] 09:04:00 Test Item Value Reference Range Interpretation Comments A/G Ratio (test code = A/G Ratio) 0.8 1 0.7-1.6 [facility]2022-07-18 09:04:00 Test Item Value Reference Range Interpretation Comments eGFR (test code = eGFR) 8 [facility] GreenvilleOeszyczAZQEMWXZRY7658-22-03 09:04:00 Test Item Value Reference Range Interpretation Comments D-Dimer (test code = D-Dimer) 3.03 [facility] GreenvilleBvsbsklUQCENJEGBH7172-88-13 09:04:00 Test Item Value Reference Range Interpretation Comments WBC (test code = WBC) 3.6 3.7-10.4 [facility] GreenvilleXannvfmARKKQEYCKH7557-85-16 09:04:00 Test Item Value Reference Range Interpretation Comments RBC (test code = RBC) 2.07 4.70-6.10 [place] 796562-07-18 09:04:00 Test Item Value Reference Range Interpretation Comments Hgb (test code = Hgb) 7.5 14.0-18.0 [facility] GreenvilleZilgxihLFWTBBFCXE2618-76-79 09:04:00 Test Item Value Reference Range Interpretation Comments Hct (test code = Hct) 22.0 42.0-54.0 [facility] GreenvilleSniapmhZIRZGKHDWD6033-29-89 09:04:00 Test Item Value Reference Range Interpretation Comments MCV (test code = MCV) 106.3 80.0-94.0 [facility] GreenvilleAlfoomnHXVCTSVPUG2183-99-49 09:04:00 Test Item Value Reference Range Interpretation Comments MCH (test code = MCH) 36.1 pg 27.0-31.0 [facility] GreenvilleFuhdfipXJUMKWKURV2089-27-27 09:04:00 Test Item Value Reference Range Interpretation Comments MCHC (test code = MCHC) 33.9 32.0-36.0 [place] 796562-07-18 09:04:00 Test Item Value Reference Range Interpretation Comments RDW (test code = RDW) 23.9 11.5-14.5 [facility] GreenvilleYvxvegoCZKGKNXAMN5701-86-14 09:04:00 Test Item Value Reference Range Interpretation Comments Platelet (test code = Platelet) 133 133-450 [facility] GreenvilleQqknwrjGEXWCDXDIV6135-33-48 09:04:00 Test Item Value Reference Range Interpretation Comments MPV (test code = MPV) 8.1 7.4-10.4 [place] 796562-07-18 09:04:00 Test Item Value Reference Range Interpretation Comments Segs (test code = Segs) 60.8 45.0-75.0 [place] [address]-07-18 09:04:00 Test Item Value Reference Range Interpretation Comments Lymphocytes (test code = Lymphocytes) 22.3 20.0-40.0 [place] [address]-07-18 09:04:00 Test Item Value Reference Range Interpretation Comments Monocytes (test code = Monocytes) 13.9 2.0-12.0 [place] [address]-07-18 09:04:00 Test Item Value Reference Range Interpretation Comments Eosinophils (test code = 2.6 See_Comment [A utomated message] The Eosinophils) system which ge nerated this result tra nsmitted reference range : <=4.0. The reference r samantha was not used to int erpret this result as normal/abnormal . [place] [address]-07-18 09:04:00 Test Item Value Reference Range Interpretation Comments Basophils (test code = 0.4 See_Comment [Aut omated message] The Basophils) system which ge nerated this result tra nsmitted reference range : <=1.0. The reference r samantha was not used to int erpret this result as normal/abnormal . [place] 796562-07-18 09:04:00 Test Item Value Reference Range Interpretation Comments Neutrophils # (test code = Neutrophils 2.2 1.5-8.1 #) [place] [address]-07-18 09:04:00 Test Item Value Reference Range Interpretation Comments Lymphocytes # (test code = Lymphocytes 0.8 1.0-5.5 #) [place] [address]-07-18 09:04:00 Test Item Value Reference Range Interpretation Comments Monocytes # (test code 0.5 See_Comment [Aut omated message] The = Monocytes #) system which generated this result tra nsmitted reference range : <=0.8. The reference r samantha was not used to int erpret this result as normal/abnormal . [place] 796562-07-18 09:04:00 Test Item Value Reference Range Interpretation Comments Eosinophils # (test code 0.1 See_Comment [A utomated message] The = Eosinophils #) system whic h generated this result tra nsmitted reference range : <=0.5. The reference r samantha was not used to int erpret this result as normal/abnormal . [facility] SurgeryBtqboraDXVGZIQBTR4703-69-95 09:04:00 Test Item Value Reference Range Interpretation Comments Macrocyte (test code = 1+ *ABN*(12/15/21 Macrocyte) 4:04 AM) [facility] CenterGvgukbwJADROTTGJM9235-75-04 09:04:00 Test Item Value Reference Range Interpretation Comments C-REACTIVE PROTEIN (test code = 25.1 C-REACTIVE PROTEIN) [facility] CenterXelrsxeZHTKZEBMOH6485-86-23 09:04:00 Test Item Value Reference Range Interpretation Comments Vanco Lvl (test code = Vanco Lvl) 15.2 [facility]2022-07-18 09:04:00 Test Item Value Reference Range Interpretation Comments Glucose Lvl (test code = Glucose Lvl) 59 70-99 [facility]2022-07-18 09:04:00 Test Item Value Reference Range Interpretation Comments BUN (test code = BUN) 41 7-22 [facility]2022-07-18 09:04:00 Test Item Value Reference Range Interpretation Comments Creatinine Lvl (test code = Creatinine 7.00 0.50-1.40 Lvl) [facility]2022-07-18 09:04:00 Test Item Value Reference Range Interpretation Comments Sodium Lvl (test code = Sodium Lvl) 134 135-145 [facility]2022-07-18 09:04:00 Test Item Value Reference Range Interpretation Comments Potassium Lvl (test code = Potassium 4.0 3.5-5.1 Lvl) [facility]2022-07-18 09:04:00 Test Item Value Reference Range Interpretation Comments Chloride Lvl (test code = Chloride Lvl) 102 95-109 [facility]2022-07-18 09:04:00 Test Item Value Reference Range Interpretation Comments CO2 (test code = CO2) 25 24-32 [place] 509392-07-18 09:04:00 Test Item Value Reference Range Interpretation Comments Calcium Lvl (test code = Calcium Lvl) 9.1 8.5-10.5 [facility]2022-07-18 09:04:00 Test Item Value Reference Range Interpretation Comments Total Protein (test code = Total 6.2 6.4-8.4 Protein) [place] 509392-07-18 09:04:00 Test Item Value Reference Range Interpretation Comments Albumin Lvl (test code = Albumin Lvl) 2.8 3.5-5.0 [place] 509392-07-18 09:04:00 Test Item Value Reference Range Interpretation Comments ALT (test code = ALT) 78 See_Comment [Auto mated message] The system which ge nerated this result transmit swathi reference range : <=65. The reference range was not used to interpr et this result as deny l/abnormal. [place] 509392-07-18 09:04:00 Test Item Value Reference Range Interpretation Comments AST (test code = AST) 117 See_Comment [Auto mated message] The system which ge nerated this result transmit swathi reference range : <=37. The reference range was not used to interpr et this result as deny l/abnormal. [place] 509392-07-18 09:04:00 Test Item Value Reference Range Interpretation Comments Alk Phos (test code = Alk Phos) 251 39-136 [place] 509392-07-18 09:04:00 Test Item Value Reference Range Interpretation Comments Bili Total (test code = Bili Total) 0.9 0.2-1.3 [place] 509392-07-18 09:04:00 Test Item Value Reference Range Interpretation Comments AGAP (test code = AGAP) 11.0 10.0-20.0 [place] 509392-07-18 09:04:00 Test Item Value Reference Range Interpretation Comments B/C Ratio (test code = B/C Ratio) 6 1 6-25 [place] [address]-07-18 09:04:00 Test Item Value Reference Range Interpretation Comments Globulin (test code = Globulin) 3.4 2.7-4.2 [place] 509392-07-18 09:04:00 Test Item Value Reference Range Interpretation Comments A/G Ratio (test code = A/G Ratio) 0.8 1 0.7-1.6 [place] [address]-07-18 09:04:00 Test Item Value Reference Range Interpretation Comments eGFR (test code = eGFR) 8 [facility]villeMxyqwhzJVHQPGXWMY7279-75-08 09:04:00 Test Item Value Reference Range Interpretation Comments D-Dimer (test code = D-Dimer) 3.03 [facility] GreenvilleJnipbxsJXHEEZTFJT6045-19-09 09:04:00 Test Item Value Reference Range Interpretation Comments WBC (test code = WBC) 3.6 3.7-10.4 [place] 796562-07-18 09:04:00 Test Item Value Reference Range Interpretation Comments RBC (test code = RBC) 2.07 4.70-6.10 [place] 796562-07-18 09:04:00 Test Item Value Reference Range Interpretation Comments Hgb (test code = Hgb) 7.5 14.0-18.0 [place] 796562-07-18 09:04:00 Test Item Value Reference Range Interpretation Comments Hct (test code = Hct) 22.0 42.0-54.0 [facility]villeZpgcotjDQNAIQKVOG8785-46-00 09:04:00 Test Item Value Reference Range Interpretation Comments MCV (test code = MCV) 106.3 80.0-94.0 [place] 796562-07-18 09:04:00 Test Item Value Reference Range Interpretation Comments MCH (test code = MCH) 36.1 pg 27.0-31.0 [facility]villeShvfuyvPUAHIHGFFN2003-84-06 09:04:00 Test Item Value Reference Range Interpretation Comments MCHC (test code = MCHC) 33.9 32.0-36.0 [facility]villeSpqqfngBFHJSPEPHR7321-55-26 09:04:00 Test Item Value Reference Range Interpretation Comments RDW (test code = RDW) 23.9 11.5-14.5 [facility] GreenvilleIzvyakkITNOGBKWBA4558-84-48 09:04:00 Test Item Value Reference Range Interpretation Comments Platelet (test code = Platelet) 133 133-450 [facility] GreenvilleJagcidvVRQDUXHCJK9028-19-57 09:04:00 Test Item Value Reference Range Interpretation Comments MPV (test code = MPV) 8.1 7.4-10.4 [facility] GreenvilleRbmcullUBYYSVIPAN6724-51-23 09:04:00 Test Item Value Reference Range Interpretation Comments Segs (test code = Segs) 60.8 45.0-75.0 [facility] GreenvilleLjudecbFVNLRITAXA2009-41-47 09:04:00 Test Item Value Reference Range Interpretation Comments Lymphocytes (test code = Lymphocytes) 22.3 20.0-40.0 [place] 796562-07-18 09:04:00 Test Item Value Reference Range Interpretation Comments Monocytes (test code = Monocytes) 13.9 2.0-12.0 [facility] GreenvilleGkwmqznGOQRINGKTL9072-65-69 09:04:00 Test Item Value Reference Range Interpretation Comments Eosinophils (test code = 2.6 See_Comment [A utomated message] The Eosinophils) system which ge nerated this result tra nsmitted reference range : <=4.0. The reference r samantha was not used to int erpret this result as normal/abnormal . [facility] GreenvilleRzhikttOCOQPIZRYX4700-85-13 09:04:00 Test Item Value Reference Range Interpretation Comments Basophils (test code = 0.4 See_Comment [Aut omated message] The Basophils) system which ge nerated this result tra nsmitted reference range : <=1.0. The reference r samantha was not used to int erpret this result as normal/abnormal . [facility] GreenvilleSprtzglGCAPJRVGXL4565-15-93 09:04:00 Test Item Value Reference Range Interpretation Comments Neutrophils # (test code = Neutrophils 2.2 1.5-8.1 #) [facility] GreenvilleBxazameRLBPHOTSKP3211-63-73 09:04:00 Test Item Value Reference Range Interpretation Comments Lymphocytes # (test code = Lymphocytes 0.8 1.0-5.5 #) [facility] GreenvilleUwskhssUOLZTBYHDZ7147-77-66 09:04:00 Test Item Value Reference Range Interpretation Comments Monocytes # (test code 0.5 See_Comment [Aut omated message] The = Monocytes #) system which generated this result tra nsmitted reference range : <=0.8. The reference r samantha was not used to int erpret this result as normal/abnormal . [place] 796562-07-18 09:04:00 Test Item Value Reference Range Interpretation Comments Eosinophils # (test code 0.1 See_Comment [A utomated message] The = Eosinophils #) system whic h generated this result tra nsmitted reference range : <=0.5. The reference r samantha was not used to int erpret this result as normal/abnormal . [place] 796562-07-18 09:04:00 Test Item Value Reference Range Interpretation Comments Macrocyte (test code = 1+ *ABN*(12/15/21 Macrocyte) 4:04 AM) [facility] CenterXfoyfqnNZOAAXCUYW7686-35-52 09:04:00 Test Item Value Reference Range Interpretation Comments C-REACTIVE PROTEIN (test code = 25.1 C-REACTIVE PROTEIN) [facility] CenterSnefphoQSNVWREVJX2761-20-27 09:04:00 Test Item Value Reference Range Interpretation Comments Vanco Lvl (test code = Vanco Lvl) 15.2 [facility]2022-07-18 09:04:00 Test Item Value Reference Range Interpretation Comments Glucose Lvl (test code = Glucose Lvl) 59 70-99 [facility]2022-07-18 09:04:00 Test Item Value Reference Range Interpretation Comments BUN (test code = BUN) 41 7-22 [facility]2022-07-18 09:04:00 Test Item Value Reference Range Interpretation Comments Creatinine Lvl (test code = Creatinine 7.00 0.50-1.40 Lvl) [facility]2022-07-18 09:04:00 Test Item Value Reference Range Interpretation Comments Sodium Lvl (test code = Sodium Lvl) 134 135-145 [facility]2022-07-18 09:04:00 Test Item Value Reference Range Interpretation Comments Potassium Lvl (test code = Potassium 4.0 3.5-5.1 Lvl) [facility]2022-07-18 09:04:00 Test Item Value Reference Range Interpretation Comments Chloride Lvl (test code = Chloride Lvl) 102 95-109 [facility]2022-07-18 09:04:00 Test Item Value Reference Range Interpretation Comments CO2 (test code = CO2) 25 24-32 [facility]2022-07-18 09:04:00 Test Item Value Reference Range Interpretation Comments Calcium Lvl (test code = Calcium Lvl) 9.1 8.5-10.5 [facility]2022-07-18 09:04:00 Test Item Value Reference Range Interpretation Comments Total Protein (test code = Total 6.2 6.4-8.4 Protein) [facility]2022-07-18 09:04:00 Test Item Value Reference Range Interpretation Comments Albumin Lvl (test code = Albumin Lvl) 2.8 3.5-5.0 [place] 509392-07-18 09:04:00 Test Item Value Reference Range Interpretation Comments ALT (test code = ALT) 78 See_Comment [Auto mated message] The system which ge nerated this result transmit swathi reference range : <=65. The reference range was not used to interpr et this result as deny l/abnormal. [facility] [employer] [id number] 09:04:00 Test Item Value Reference Range Interpretation Comments AST (test code = AST) 117 See_Comment [Auto mated message] The system which ge nerated this result transmit swathi reference range : <=37. The reference range was not used to interpr et this result as deny l/abnormal. [facility] [employer] [id number] 09:04:00 Test Item Value Reference Range Interpretation Comments Alk Phos (test code = Alk Phos) 251 39-136 [facility] NCPCP5823[facility]-41 09:04:00 Test Item Value Reference Range Interpretation Comments Bili Total (test code = Bili Total) 0.9 0.2-1.3 [facility] WQXWL8634-49-60 09:04:00 Test Item Value Reference Range Interpretation Comments AGAP (test code = AGAP) 11.0 10.0-20.0 [facility] [id number] 09:04:00 Test Item Value Reference Range Interpretation Comments B/C Ratio (test code = B/C Ratio) 6 1 6-25 [facility] HGNKC9804-31-72 09:04:00 Test Item Value Reference Range Interpretation Comments Globulin (test code = Globulin) 3.4 2.7-4.2 [facility] OHFTX5454-06-06 09:04:00 Test Item Value Reference Range Interpretation Comments A/G Ratio (test code = A/G Ratio) 0.8 1 0.7-1.[address] [facility] [employer] [id number] 09:04:00 Test Item Value Reference Range Interpretation Comments eGFR (test code = eGFR) 8 [facility] CenterLmvtdgrKUASSHCDSX4680-60-44 09:04:00 Test Item Value Reference Range Interpretation Comments D-Dimer (test code = D-Dimer) 3.03 [facility] HospitalLcltyuqHNNMYHXIAQ3279-21-66 09:04:00 Test Item Value Reference Range Interpretation Comments WBC (test code = WBC) 3.6 3.7-10.4 [place] [address]-07-18 09:04:00 Test Item Value Reference Range Interpretation Comments RBC (test code = RBC) 2.07 4.70-6.10 [place] 796562-07-18 09:04:00 Test Item Value Reference Range Interpretation Comments Hgb (test code = Hgb) 7.5 14.0-18.0 [place] 796562-07-18 09:04:00 Test Item Value Reference Range Interpretation Comments Hct (test code = Hct) 22.0 42.0-54.0 [place]6562-07-18 09:04:00 Test Item Value Reference Range Interpretation Comments MCV (test code = MCV) 106.3 80.0-94.0 [place] 796562-07-18 09:04:00 Test Item Value Reference Range Interpretation Comments MCH (test code = MCH) 36.1 pg 27.0-31.0 [place] 796562-07-18 09:04:00 Test Item Value Reference Range Interpretation Comments MCHC (test code = MCHC) 33.9 32.0-36.0 [place] 796562-07-18 09:04:00 Test Item Value Reference Range Interpretation Comments RDW (test code = RDW) 23.9 11.5-14.5 [place] 796562-07-18 09:04:00 Test Item Value Reference Range Interpretation Comments Platelet (test code = Platelet) 133 133-450 [facility]villeZwfouyvLWAVVZEQNA6553-60-86 09:04:00 Test Item Value Reference Range Interpretation Comments MPV (test code = MPV) 8.1 7.4-10.4 [place] 796562-07-18 09:04:00 Test Item Value Reference Range Interpretation Comments Segs (test code = Segs) 60.8 45.0-75.0 [place] 796562-07-18 09:04:00 Test Item Value Reference Range Interpretation Comments Lymphocytes (test code = Lymphocytes) 22.3 20.0-40.0 [place] 796562-07-18 09:04:00 Test Item Value Reference Range Interpretation Comments Monocytes (test code = Monocytes) 13.9 2.0-12.0 [place] 796562-07-18 09:04:00 Test Item Value Reference Range Interpretation Comments Eosinophils (test code = 2.6 See_Comment [A utomated message] The Eosinophils) system which ge nerated this result tra nsmitted reference range : <=4.0. The reference r samantha was not used to int erpret this result as normal/abnormal . [facility] GreenvilleIlovmvsDNULGDFPHJ2585-37-55 09:04:00 Test Item Value Reference Range Interpretation Comments Basophils (test code = 0.4 See_Comment [Aut omated message] The Basophils) system which ge nerated this result tra nsmitted reference range : <=1.0. The reference r samantha was not used to int erpret this result as normal/abnormal . [facility]villeHrsoqiiDLYMAUOJBB3778-70-17 09:04:00 Test Item Value Reference Range Interpretation Comments Neutrophils # (test code = Neutrophils 2.2 1.5-8.1 #) [facility]villeMqtyvkrOVALHALPBI6868-20-96 09:04:00 Test Item Value Reference Range Interpretation Comments Lymphocytes # (test code = Lymphocytes 0.8 1.0-5.5 #) [facility]villeZwsoqykRIBLZLXEWF6726-52-02 09:04:00 Test Item Value Reference Range Interpretation Comments Monocytes # (test code 0.5 See_Comment [Aut omated message] The = Monocytes #) system which generated this result tra nsmitted reference range : <=0.8. The reference r samantha was not used to int erpret this result as normal/abnormal . [facility] GreenvilleFjlavavMLOPQBXFYU0850-38-07 09:04:00 Test Item Value Reference Range Interpretation Comments Eosinophils # (test code 0.1 See_Comment [A utomated message] The = Eosinophils #) system whic h generated this result tra nsmitted reference range : <=0.5. The reference r samantha was not used to int erpret this result as normal/abnormal . [facility] GreenvilleNwgjxzfHTBODBUQHG1712-52-73 09:04:00 Test Item Value Reference Range Interpretation Comments Macrocyte (test code = 1+ *ABN*(12/15/21 Macrocyte) 4:04 AM) [facility] CenterPesbgvsRHCUDBAWUT8824-82-00 09:04:00 Test Item Value Reference Range Interpretation Comments C-REACTIVE PROTEIN (test code = 25.1 C-REACTIVE PROTEIN) [facility] CenterOfafwccSSBVSNBFSC1607-19-60 09:04:00 Test Item Value Reference Range Interpretation Comments Vanco Lvl (test code = Vanco Lvl) 15.2 [facility]2022-07-18 09:04:00 Test Item Value Reference Range Interpretation Comments Glucose Lvl (test code = Glucose Lvl) 59 70-99 [place] 509392-07-18 09:04:00 Test Item Value Reference Range Interpretation Comments BUN (test code = BUN) 41 7-22 [place] 509392-07-18 09:04:00 Test Item Value Reference Range Interpretation Comments Creatinine Lvl (test code = Creatinine 7.00 0.50-1.40 Lvl) [facility]2022-07-18 09:04:00 Test Item Value Reference Range Interpretation Comments Sodium Lvl (test code = Sodium Lvl) 134 135-145 [place] 509392-07-18 09:04:00 Test Item Value Reference Range Interpretation Comments Potassium Lvl (test code = Potassium 4.0 3.5-5.1 Lvl) [place] 509392-07-18 09:04:00 Test Item Value Reference Range Interpretation Comments Chloride Lvl (test code = Chloride Lvl) 102 95-109 [place] 509392-07-18 09:04:00 Test Item Value Reference Range Interpretation Comments CO2 (test code = CO2) 25 24-32 [place] 509392-07-18 09:04:00 Test Item Value Reference Range Interpretation Comments Calcium Lvl (test code = Calcium Lvl) 9.1 8.5-10.5 [place] 509392-07-18 09:04:00 Test Item Value Reference Range Interpretation Comments Total Protein (test code = Total 6.2 6.4-8.4 Protein) [place] 509392-07-18 09:04:00 Test Item Value Reference Range Interpretation Comments Albumin Lvl (test code = Albumin Lvl) 2.8 3.5-5.0 [place] 509392-07-18 09:04:00 Test Item Value Reference Range Interpretation Comments ALT (test code = ALT) 78 See_Comment [Auto mated message] The system which ge nerated this result transmit swathi reference range : <=65. The reference range was not used to interpr et this result as deny l/abnormal. [place] 509392-07-18 09:04:00 Test Item Value Reference Range Interpretation Comments AST (test code = AST) 117 See_Comment [Auto mated message] The system which ge nerated this result transmit swathi reference range : <=37. The reference range was not used to interpr et this result as deny l/abnormal. [place] 509392-07-18 09:04:00 Test Item Value Reference Range Interpretation Comments Alk Phos (test code = Alk Phos) 251 39-136 [place] 509392-07-18 09:04:00 Test Item Value Reference Range Interpretation Comments Bili Total (test code = Bili Total) 0.9 0.2-1.3 [place] [address]-07-18 09:04:00 Test Item Value Reference Range Interpretation Comments AGAP (test code = AGAP) 11.0 10.0-20.0 [place] 509392-07-18 09:04:00 Test Item Value Reference Range Interpretation Comments B/C Ratio (test code = B/C Ratio) 6 1 6-25 [place] [address]-07-18 09:04:00 Test Item Value Reference Range Interpretation Comments Globulin (test code = Globulin) 3.4 2.7-4.2 [place] [address]-07-18 09:04:00 Test Item Value Reference Range Interpretation Comments A/G Ratio (test code = A/G Ratio) 0.8 1 0.7-1.6 [place] [address]-07-18 09:04:00 Test Item Value Reference Range Interpretation Comments eGFR (test code = eGFR) 8 [place] 796562-07-18 09:04:00 Test Item Value Reference Range Interpretation Comments D-Dimer (test code = D-Dimer) 3.03 [place] [address]-07-18 09:04:00 Test Item Value Reference Range Interpretation Comments WBC (test code = WBC) 3.6 3.7-10.4 [place] [address]-07-18 09:04:00 Test Item Value Reference Range Interpretation Comments RBC (test code = RBC) 2.07 4.70-6.10 [place] [address]-07-18 09:04:00 Test Item Value Reference Range Interpretation Comments Hgb (test code = Hgb) 7.5 14.0-18.0 [place] 796562-07-18 09:04:00 Test Item Value Reference Range Interpretation Comments Hct (test code = Hct) 22.0 42.0-54.0 [place] 796562-07-18 09:04:00 Test Item Value Reference Range Interpretation Comments MCV (test code = MCV) 106.3 80.0-94.0 [place] 796562-07-18 09:04:00 Test Item Value Reference Range Interpretation Comments MCH (test code = MCH) 36.1 pg 27.0-31.0 [place] 796562-07-18 09:04:00 Test Item Value Reference Range Interpretation Comments MCHC (test code = MCHC) 33.9 32.0-36.0 [place] 796562-07-18 09:04:00 Test Item Value Reference Range Interpretation Comments RDW (test code = RDW) 23.9 11.5-14.5 [place] 796562-07-18 09:04:00 Test Item Value Reference Range Interpretation Comments Platelet (test code = Platelet) 133 133-450 [place] 796562-07-18 09:04:00 Test Item Value Reference Range Interpretation Comments MPV (test code = MPV) 8.1 7.4-10.4 [place] 796562-07-18 09:04:00 Test Item Value Reference Range Interpretation Comments Segs (test code = Segs) 60.8 45.0-75.0 [place] 796562-07-18 09:04:00 Test Item Value Reference Range Interpretation Comments Lymphocytes (test code = Lymphocytes) 22.3 20.0-40.0 [place] 796562-07-18 09:04:00 Test Item Value Reference Range Interpretation Comments Monocytes (test code = Monocytes) 13.9 2.0-12.0 [place] [address]-07-18 09:04:00 Test Item Value Reference Range Interpretation Comments Eosinophils (test code = 2.6 See_Comment [A utomated message] The Eosinophils) system which ge nerated this result tra nsmitted reference range : <=4.0. The reference r samantha was not used to int erpret this result as normal/abnormal . [facility] CenterEitiijnPEBNXAFRFW3902-08-68 09:04:00 Test Item Value Reference Range Interpretation Comments Basophils (test code = 0.4 See_Comment [Aut omated message] The Basophils) system which ge nerated this result tra nsmitted reference range : <=1.0. The reference r samantha was not used to int erpret this result as normal/abnormal . [facility] SurgeryIdnzpflVYEESCCQMD4236-54-86 09:04:00 Test Item Value Reference Range Interpretation Comments Neutrophils # (test code = Neutrophils 2.2 1.5-8.1 #) [facility] SurgeryHkzpfpgKYQAUTECWX3023-17-39 09:04:00 Test Item Value Reference Range Interpretation Comments Lymphocytes # (test code = Lymphocytes 0.8 1.0-5.5 #) [facility]villeLbtdjkhROWHNFTTDD2155-17-15 09:04:00 Test Item Value Reference Range Interpretation Comments Monocytes # (test code 0.5 See_Comment [Aut omated message] The = Monocytes #) system which generated this result tra nsmitted reference range : <=0.8. The reference r samantha was not used to int erpret this result as normal/abnormal . [facility] SurgeryWmbvvvhYCNUFSRTYI4384-66-84 09:04:00 Test Item Value Reference Range Interpretation Comments Eosinophils # (test code 0.1 See_Comment [A utomated message] The = Eosinophils #) system whic h generated this result tra nsmitted reference range : <=0.5. The reference r samantha was not used to int erpret this result as normal/abnormal . [facility] CenterDpepwauTFJBTEQHWX3692-88-99 09:04:00 Test Item Value Reference Range Interpretation Comments Macrocyte (test code = 1+ *ABN*(12/15/21 Macrocyte) 4:04 AM) [facility] CenterZnjmuneZRNZYTJJKZ3122-18-17 09:04:00 Test Item Value Reference Range Interpretation Comments C-REACTIVE PROTEIN (test code = 25.1 C-REACTIVE PROTEIN) [facility] CenterKczzxduHBWLBIAILF1769-96-46 09:04:00 Test Item Value Reference Range Interpretation Comments Vanco Lvl (test code = Vanco Lvl) 15.2 [facility] CenterCHEM EEDFR9593-95-14 09:04:00 Test Item Value Reference Range Interpretation Comments Glucose Lvl (test code = Glucose Lvl) 59 70-99 [place] [address]-07-18 09:04:00 Test Item Value Reference Range Interpretation Comments BUN (test code = BUN) 41 7-22 [place] [address]-07-18 09:04:00 Test Item Value Reference Range Interpretation Comments Creatinine Lvl (test code = Creatinine 7.00 0.50-1.40 Lvl) [place] [address]-07-18 09:04:00 Test Item Value Reference Range Interpretation Comments Sodium Lvl (test code = Sodium Lvl) 134 135-145 [place] [address]-07-18 09:04:00 Test Item Value Reference Range Interpretation Comments Potassium Lvl (test code = Potassium 4.0 3.5-5.1 Lvl) [address]07-18 09:04:00 Test Item Value Reference Range Interpretation Comments Chloride Lvl (test code = Chloride Lvl) 102 95-109 [place] [address]-07-18 09:04:00 Test Item Value Reference Range Interpretation Comments CO2 (test code = CO2) 25 24-32 [place] [address]-07-18 09:04:00 Test Item Value Reference Range Interpretation Comments Calcium Lvl (test code = Calcium Lvl) 9.1 8.5-10.5 [place] [address]-07-18 09:04:00 Test Item Value Reference Range Interpretation Comments Total Protein (test code = Total 6.2 6.4-8.4 Protein) [place] [address]-07-18 09:04:00 Test Item Value Reference Range Interpretation Comments Albumin Lvl (test code = Albumin Lvl) 2.8 3.5-5.0 [place] [address]-07-18 09:04:00 Test Item Value Reference Range Interpretation Comments ALT (test code = ALT) 78 See_Comment [Auto mated message] The system which ge nerated this result transmit swathi reference range : <=65. The reference range was not used to interpr et this result as deny l/abnormal. [place] [address]-07-18 09:04:00 Test Item Value Reference Range Interpretation Comments AST (test code = AST) 117 See_Comment [Auto mated message] The system which ge nerated this result transmit swathi reference range : <=37. The reference range was not used to interpr et this result as deny l/abnormal. [place] 509392-07-18 09:04:00 Test Item Value Reference Range Interpretation Comments Alk Phos (test code = Alk Phos) 251 39-136 [place] 509392-07-18 09:04:00 Test Item Value Reference Range Interpretation Comments Bili Total (test code = Bili Total) 0.9 0.2-1.3 [place] 509392-07-18 09:04:00 Test Item Value Reference Range Interpretation Comments AGAP (test code = AGAP) 11.0 10.0-20.0 [place] 509392-07-18 09:04:00 Test Item Value Reference Range Interpretation Comments B/C Ratio (test code = B/C Ratio) 6 1 6-25 [place] 509392-07-18 09:04:00 Test Item Value Reference Range Interpretation Comments Globulin (test code = Globulin) 3.4 2.7-4.2 [facility]2022-07-18 09:04:00 Test Item Value Reference Range Interpretation Comments A/G Ratio (test code = A/G Ratio) 0.8 1 0.7-1.6 [place] 509392-07-18 09:04:00 Test Item Value Reference Range Interpretation Comments eGFR (test code = eGFR) 8 [facility]villeIfrxszkPUDIMWMRLY2137-07-52 09:04:00 Test Item Value Reference Range Interpretation Comments D-Dimer (test code = D-Dimer) 3.03 [place] 796562-07-18 09:04:00 Test Item Value Reference Range Interpretation Comments WBC (test code = WBC) 3.6 3.7-10.4 [place] 796562-07-18 09:04:00 Test Item Value Reference Range Interpretation Comments RBC (test code = RBC) 2.07 4.70-6.10 [place] 796562-07-18 09:04:00 Test Item Value Reference Range Interpretation Comments Hgb (test code = Hgb) 7.5 14.0-18.0 [place] 796562-07-18 09:04:00 Test Item Value Reference Range Interpretation Comments Hct (test code = Hct) 22.0 42.0-54.0 [address]07-18 09:04:00 Test Item Value Reference Range Interpretation Comments MCV (test code = MCV) 106.3 80.0-94.0 [place] [address]-07-18 09:04:00 Test Item Value Reference Range Interpretation Comments MCH (test code = MCH) 36.1 pg 27.0-31.0 [place] [address]-07-18 09:04:00 Test Item Value Reference Range Interpretation Comments MCHC (test code = MCHC) 33.9 32.0-36.0 [place] [address]-07-18 09:04:00 Test Item Value Reference Range Interpretation Comments RDW (test code = RDW) 23.9 11.5-14.5 [place] [address]-07-18 09:04:00 Test Item Value Reference Range Interpretation Comments Platelet (test code = Platelet) 133 133-450 [place] 796562-07-18 09:04:00 Test Item Value Reference Range Interpretation Comments MPV (test code = MPV) 8.1 7.4-10.4 [place] [address]-07-18 09:04:00 Test Item Value Reference Range Interpretation Comments Segs (test code = Segs) 60.8 45.0-75.0 [place] [address]-07-18 09:04:00 Test Item Value Reference Range Interpretation Comments Lymphocytes (test code = Lymphocytes) 22.3 20.0-40.0 [place] [address]-07-18 09:04:00 Test Item Value Reference Range Interpretation Comments Monocytes (test code = Monocytes) 13.9 2.0-12.0 [place] 796562-07-18 09:04:00 Test Item Value Reference Range Interpretation Comments Eosinophils (test code = 2.6 See_Comment [A utomated message] The Eosinophils) system which ge nerated this result tra nsmitted reference range : <=4.0. The reference r samantha was not used to int erpret this result as normal/abnormal . [place] [address]-07-18 09:04:00 Test Item Value Reference Range Interpretation Comments Basophils (test code = 0.4 See_Comment [Aut omated message] The Basophils) system which ge nerated this result tra nsmitted reference range : <=1.0. The reference r samantha was not used to int erpret this result as normal/abnormal . [facility]villePytszcfPORPIYXBIE6492-61-08 09:04:00 Test Item Value Reference Range Interpretation Comments Neutrophils # (test code = Neutrophils 2.2 1.5-8.1 #) [facility] GreenvilleTeoqoooZOOJEIPZDT4330-59-35 09:04:00 Test Item Value Reference Range Interpretation Comments Lymphocytes # (test code = Lymphocytes 0.8 1.0-5.5 #) [facility] GreenvilleSjxejcqQXQZEVNWDX1349-74-57 09:04:00 Test Item Value Reference Range Interpretation Comments Monocytes # (test code 0.5 See_Comment [Aut omated message] The = Monocytes #) system which generated this result tra nsmitted reference range : <=0.8. The reference r samantha was not used to int erpret this result as normal/abnormal . [facility] GreenvilleIpjpherSZWOGPARCP9151-34-76 09:04:00 Test Item Value Reference Range Interpretation Comments Eosinophils # (test code 0.1 See_Comment [A utomated message] The = Eosinophils #) system whic h generated this result tra nsmitted reference range : <=0.5. The reference r samantha was not used to int erpret this result as normal/abnormal . [facility] GreenvilleGqhxrkeNMGATTDINB0464-05-94 09:04:00 Test Item Value Reference Range Interpretation Comments Macrocyte (test code = 1+ *ABN*(12/15/21 Macrocyte) 4:04 AM) [facility] CenterLtgsuinLQIMCNNBWM7124-75-56 09:04:00 Test Item Value Reference Range Interpretation Comments C-REACTIVE PROTEIN (test code = 25.1 C-REACTIVE PROTEIN) [facility] CenterQfvkbnmYLUVRWIBGU7511-26-01 09:04:00 Test Item Value Reference Range Interpretation Comments Vanco Lvl (test code = Vanco Lvl) 15.2 [facility]2022-07-18 09:04:00 Test Item Value Reference Range Interpretation Comments Glucose Lvl (test code = Glucose Lvl) 59 70-99 [place] 509392-07-18 09:04:00 Test Item Value Reference Range Interpretation Comments BUN (test code = BUN) 41 7-22 [place] 509392-07-18 09:04:00 Test Item Value Reference Range Interpretation Comments Creatinine Lvl (test code = Creatinine 7.00 0.50-1.40 Lvl) [place] 509392-07-18 09:04:00 Test Item Value Reference Range Interpretation Comments Sodium Lvl (test code = Sodium Lvl) 134 135-145 [place] 509392-07-18 09:04:00 Test Item Value Reference Range Interpretation Comments Potassium Lvl (test code = Potassium 4.0 3.5-5.1 Lvl) [place] 509392-07-18 09:04:00 Test Item Value Reference Range Interpretation Comments Chloride Lvl (test code = Chloride Lvl) 102 95-109 [place] 509392-07-18 09:04:00 Test Item Value Reference Range Interpretation Comments CO2 (test code = CO2) 25 24-32 [place] 509392-07-18 09:04:00 Test Item Value Reference Range Interpretation Comments Calcium Lvl (test code = Calcium Lvl) 9.1 8.5-10.5 [place] 509392-07-18 09:04:00 Test Item Value Reference Range Interpretation Comments Total Protein (test code = Total 6.2 6.4-8.4 Protein) [place] 509392-07-18 09:04:00 Test Item Value Reference Range Interpretation Comments Albumin Lvl (test code = Albumin Lvl) 2.8 3.5-5.0 [place] 509392-07-18 09:04:00 Test Item Value Reference Range Interpretation Comments ALT (test code = ALT) 78 See_Comment [Auto mated message] The system which Memoright nerated this result transmit swathi reference range : <=65. The reference range was not used to interpr et this result as deny l/abnormal. [facility] CenterPlay[facility] [id number] 09:04:00 Test Item Value Reference Range Interpretation Comments AST (test code = AST) 117 See_Comment [Auto mated message] The system which Memoright nerated this result transmit swathi reference range : <=37. The reference range was not used to interpr et this result as deny l/abnormal. [place] 509392-07-18 09:04:00 Test Item Value Reference Range Interpretation Comments Alk Phos (test code = Alk Phos) 251 39-136 [facility] CenterPlay[facility] [id number] 09:04:00 Test Item Value Reference Range Interpretation Comments Bili Total (test code = Bili Total) 0.9 0.2-1.3 [place] 509392-07-18 09:04:00 Test Item Value Reference Range Interpretation Comments AGAP (test code = AGAP) 11.0 10.0-20.0 [place] 509392-07-18 09:04:00 Test Item Value Reference Range Interpretation Comments B/C Ratio (test code = B/C Ratio) 6 1 6-25 [place] 509392-07-18 09:04:00 Test Item Value Reference Range Interpretation Comments Globulin (test code = Globulin) 3.4 2.7-4.2 [place] 509392-07-18 09:04:00 Test Item Value Reference Range Interpretation Comments A/G Ratio (test code = A/G Ratio) 0.8 1 0.7-1.6 [place] 509392-07-18 09:04:00 Test Item Value Reference Range Interpretation Comments eGFR (test code = eGFR) 8 [facility] GreenvilleIdnutmuGTAYBRMGSE7818-82-94 09:04:00 Test Item Value Reference Range Interpretation Comments D-Dimer (test code = D-Dimer) 3.03 [place] 796562-07-18 09:04:00 Test Item Value Reference Range Interpretation Comments WBC (test code = WBC) 3.6 3.7-10.4 [place] 796562-07-18 09:04:00 Test Item Value Reference Range Interpretation Comments RBC (test code = RBC) 2.07 4.70-6.10 [place] 796562-07-18 09:04:00 Test Item Value Reference Range Interpretation Comments Hgb (test code = Hgb) 7.5 14.0-18.0 [place] [address]-07-18 09:04:00 Test Item Value Reference Range Interpretation Comments Hct (test code = Hct) 22.0 42.0-54.0 [place] 796562-07-18 09:04:00 Test Item Value Reference Range Interpretation Comments MCV (test code = MCV) 106.3 80.0-94.0 [place] 796562-07-18 09:04:00 Test Item Value Reference Range Interpretation Comments MCH (test code = MCH) 36.1 pg 27.0-31.0 [facility] GreenvilleHqvajzuLZXZTUQAUI8768-87-31 09:04:00 Test Item Value Reference Range Interpretation Comments MCHC (test code = MCHC) 33.9 32.0-36.0 [facility] GreenvilleRbmlbwjPRATIUNRKH9631-61-00 09:04:00 Test Item Value Reference Range Interpretation Comments RDW (test code = RDW) 23.9 11.5-14.5 [facility] GreenvilleDajyeqcWFJNFYLISP9674-14-38 09:04:00 Test Item Value Reference Range Interpretation Comments Platelet (test code = Platelet) 133 133-450 [facility] GreenvilleGcgthbeEPPLALJTKC5201-29-34 09:04:00 Test Item Value Reference Range Interpretation Comments MPV (test code = MPV) 8.1 7.4-10.4 [facility] GreenvilleNqpqwauLGGJRTOUJB3414-20-79 09:04:00 Test Item Value Reference Range Interpretation Comments Segs (test code = Segs) 60.8 45.0-75.0 [place] 796562-07-18 09:04:00 Test Item Value Reference Range Interpretation Comments Lymphocytes (test code = Lymphocytes) 22.3 20.0-40.0 [facility] GreenvilleTlibetkYEANOKDTVC8187-85-24 09:04:00 Test Item Value Reference Range Interpretation Comments Monocytes (test code = Monocytes) 13.9 2.0-12.0 [facility] GreenvilleIqojhaoWHPEAWYARO4968-42-08 09:04:00 Test Item Value Reference Range Interpretation Comments Eosinophils (test code = 2.6 See_Comment [A utomated message] The Eosinophils) system which ge nerated this result tra nsmitted reference range : <=4.0. The reference r samantha was not used to int erpret this result as normal/abnormal . [facility] GreenvilleRqvybkqUTSQPBDDAL3179-49-01 09:04:00 Test Item Value Reference Range Interpretation Comments Basophils (test code = 0.4 See_Comment [Aut omated message] The Basophils) system which ge nerated this result tra nsmitted reference range : <=1.0. The reference r samantha was not used to int erpret this result as normal/abnormal . [place] 796562-07-18 09:04:00 Test Item Value Reference Range Interpretation Comments Neutrophils # (test code = Neutrophils 2.2 1.5-8.1 #) [facility] SurgeryLfnhvaoGZDXFOMJKX6099-18-83 09:04:00 Test Item Value Reference Range Interpretation Comments Lymphocytes # (test code = Lymphocytes 0.8 1.0-5.5 #) [facility] GreenvillePyvymtaLOYJWUQWXR1134-33-91 09:04:00 Test Item Value Reference Range Interpretation Comments Monocytes # (test code 0.5 See_Comment [Aut omated message] The = Monocytes #) system which generated this result tra nsmitted reference range : <=0.8. The reference r samantha was not used to int erpret this result as normal/abnormal . [facility] GreenvilleQkdwnmzOSFUWGGCMG3345-64-80 09:04:00 Test Item Value Reference Range Interpretation Comments Eosinophils # (test code 0.1 See_Comment [A utomated message] The = Eosinophils #) system whic h generated this result tra nsmitted reference range : <=0.5. The reference r samantha was not used to int erpret this result as normal/abnormal . [facility] GreenvilleHycovgcWHPELEOXGE9824-50-43 09:04:00 Test Item Value Reference Range Interpretation Comments Macrocyte (test code = 1+ *ABN*(12/15/21 Macrocyte) 4:04 AM) [facility] CenterMlkzrwaAKBBXOUOQI5794-37-75 09:04:00 Test Item Value Reference Range Interpretation Comments C-REACTIVE PROTEIN (test code = 25.1 C-REACTIVE PROTEIN) [facility] CenterEkigyhqLEMJHUDHKE9823-13-93 09:04:00 Test Item Value Reference Range Interpretation Comments Vanco Lvl (test code = Vanco Lvl) 15.2 [facility]2022-07-18 09:04:00 Test Item Value Reference Range Interpretation Comments Glucose Lvl (test code = Glucose Lvl) 59 70-99 [facility]2022-07-18 09:04:00 Test Item Value Reference Range Interpretation Comments BUN (test code = BUN) 41 7-22 [facility]2022-07-18 09:04:00 Test Item Value Reference Range Interpretation Comments Creatinine Lvl (test code = Creatinine 7.00 0.50-1.40 Lvl) [facility]2022-07-18 09:04:00 Test Item Value Reference Range Interpretation Comments Sodium Lvl (test code = Sodium Lvl) 134 135-145 [facility]2022-07-18 09:04:00 Test Item Value Reference Range Interpretation Comments Potassium Lvl (test code = Potassium 4.0 3.5-5.1 Lvl) [place] [address]-07-18 09:04:00 Test Item Value Reference Range Interpretation Comments Chloride Lvl (test code = Chloride Lvl) 102 95-109 [facility] URBHO1760-19-84 09:04:00 Test Item Value Reference Range Interpretation Comments CO2 (test code = CO2) 25 24-32 [facility] [id number] 09:04:00 Test Item Value Reference Range Interpretation Comments Calcium Lvl (test code = Calcium Lvl) 9.1 8.5-10.5 [facility] KJULT0727-72-04 09:04:00 Test Item Value Reference Range Interpretation Comments Total Protein (test code = Total 6.2 6.4-8.4 Protein) [facility] CenterPlay[facility] AWNYB9077-73-34 09:04:00 Test Item Value Reference Range Interpretation Comments Albumin Lvl (test code = Albumin Lvl) 2.8 3.5-5.0 [facility] BTDSJ5878-94-95 09:04:00 Test Item Value Reference Range Interpretation Comments ALT (test code = ALT) 78 See_Comment [Auto mated message] The system which ge nerated this result transmit swathi reference range : <=65. The reference range was not used to interpr et this result as deny l/abnormal. [facility] LIUYC5900-39-97 09:04:00 Test Item Value Reference Range Interpretation Comments AST (test code = AST) 117 See_Comment [Auto mated message] The system which ge nerated this result transmit swathi reference range : <=37. The reference range was not used to interpr et this result as deny l/abnormal. [facility] YLHSB4230-45-20 09:04:00 Test Item Value Reference Range Interpretation Comments Alk Phos (test code = Alk Phos) 251 39-136 [facility] JCFGP3352-44-98 09:04:00 Test Item Value Reference Range Interpretation Comments Bili Total (test code = Bili Total) 0.9 0.2-1.3 [facility]Play[facility] UBZDE5002-28-22 09:04:00 Test Item Value Reference Range Interpretation Comments AGAP (test code = AGAP) 11.0 10.0-20.0 [facility]2022-07-18 09:04:00 Test Item Value Reference Range Interpretation Comments B/C Ratio (test code = B/C Ratio) 6 1 6-25 [place] 509392-07-18 09:04:00 Test Item Value Reference Range Interpretation Comments Globulin (test code = Globulin) 3.4 2.7-4.2 [place] 509392-07-18 09:04:00 Test Item Value Reference Range Interpretation Comments A/G Ratio (test code = A/G Ratio) 0.8 1 0.7-1.6 [place] 509392-07-18 09:04:00 Test Item Value Reference Range Interpretation Comments eGFR (test code = eGFR) 8 [facility] GreenvilleVvxaeezVJHKGEIJXH0159-02-18 09:04:00 Test Item Value Reference Range Interpretation Comments D-Dimer (test code = D-Dimer) 3.03 [place] 796562-07-18 09:04:00 Test Item Value Reference Range Interpretation Comments WBC (test code = WBC) 3.6 3.7-10.4 [place] 796562-07-18 09:04:00 Test Item Value Reference Range Interpretation Comments RBC (test code = RBC) 2.07 4.70-6.10 [facility] GreenvilleBaohdevZHUZHCGHBJ0946-36-38 09:04:00 Test Item Value Reference Range Interpretation Comments Hgb (test code = Hgb) 7.5 14.0-18.0 [place] 796562-07-18 09:04:00 Test Item Value Reference Range Interpretation Comments Hct (test code = Hct) 22.0 42.0-54.0 [place] 796562-07-18 09:04:00 Test Item Value Reference Range Interpretation Comments MCV (test code = MCV) 106.3 80.0-94.0 [place] 796562-07-18 09:04:00 Test Item Value Reference Range Interpretation Comments MCH (test code = MCH) 36.1 pg 27.0-31.0 [place] 796562-07-18 09:04:00 Test Item Value Reference Range Interpretation Comments MCHC (test code = MCHC) 33.9 32.0-36.0 [place] 796562-07-18 09:04:00 Test Item Value Reference Range Interpretation Comments RDW (test code = RDW) 23.9 11.5-14.5 [place] 796562-07-18 09:04:00 Test Item Value Reference Range Interpretation Comments Platelet (test code = Platelet) 133 133-450 [place] 796562-07-18 09:04:00 Test Item Value Reference Range Interpretation Comments MPV (test code = MPV) 8.1 7.4-10.4 [place] 796562-07-18 09:04:00 Test Item Value Reference Range Interpretation Comments Segs (test code = Segs) 60.8 45.0-75.0 [place] [address]-07-18 09:04:00 Test Item Value Reference Range Interpretation Comments Lymphocytes (test code = Lymphocytes) 22.3 20.0-40.0 [place] [address]-07-18 09:04:00 Test Item Value Reference Range Interpretation Comments Monocytes (test code = Monocytes) 13.9 2.0-12.0 [place] 796562-07-18 09:04:00 Test Item Value Reference Range Interpretation Comments Eosinophils (test code = 2.6 See_Comment [A utomated message] The Eosinophils) system which ge nerated this result tra nsmitted reference range : <=4.0. The reference r samantha was not used to int erpret this result as normal/abnormal . [place] [address]-07-18 09:04:00 Test Item Value Reference Range Interpretation Comments Basophils (test code = 0.4 See_Comment [Aut omated message] The Basophils) system which ge nerated this result tra nsmitted reference range : <=1.0. The reference r samantha was not used to int erpret this result as normal/abnormal . [place] 796562-07-18 09:04:00 Test Item Value Reference Range Interpretation Comments Neutrophils # (test code = Neutrophils 2.2 1.5-8.1 #) [place] 796562-07-18 09:04:00 Test Item Value Reference Range Interpretation Comments Lymphocytes # (test code = Lymphocytes 0.8 1.0-5.5 #) [place] 796562-07-18 09:04:00 Test Item Value Reference Range Interpretation Comments Monocytes # (test code 0.5 See_Comment [Aut omated message] The = Monocytes #) system which generated this result tra nsmitted reference range : <=0.8. The reference r samantha was not used to int erpret this result as normal/abnormal . [facility] CenterYxwmndfAMMQVMHJHB5287-55-83 09:04:00 Test Item Value Reference Range Interpretation Comments Eosinophils # (test code 0.1 See_Comment [A utomated message] The = Eosinophils #) system whic h generated this result tra nsmitted reference range : <=0.5. The reference r samantha was not used to int erpret this result as normal/abnormal . [facility] GreenvilleUqdrgmiJSDWDONDGB0081-76-90 09:04:00 Test Item Value Reference Range Interpretation Comments Macrocyte (test code = 1+ *ABN*(12/15/21 Macrocyte) 4:04 AM) [facility] CenterQkkydebCVCLHHWOKG1677-60-18 09:04:00 Test Item Value Reference Range Interpretation Comments C-REACTIVE PROTEIN (test code = 25.1 C-REACTIVE PROTEIN) [facility] CenterCfqoeyaADSIEHFBAO7232-93-54 09:04:00 Test Item Value Reference Range Interpretation Comments Vanco Lvl (test code = Vanco Lvl) 15.2 [facility] [id number] 09:04:00 Test Item Value Reference Range Interpretation Comments Glucose Lvl (test code = Glucose Lvl) 59 70-99 [facility] CenterPlay[facility] [id number] 09:04:00 Test Item Value Reference Range Interpretation Comments BUN (test code = BUN) 41 7-22 [facility] [id number] 09:04:00 Test Item Value Reference Range Interpretation Comments Creatinine Lvl (test code = Creatinine 7.00 0.50-1.40 Lvl) [facility] IHGJJ4965-22-51 09:04:00 Test Item Value Reference Range Interpretation Comments Sodium Lvl (test code = Sodium Lvl) 134 135-145 [facility] RRQPB5771-91-31 09:04:00 Test Item Value Reference Range Interpretation Comments Potassium Lvl (test code = Potassium 4.0 3.5-5.1 Lvl) [facility] [id number] 09:04:00 Test Item Value Reference Range Interpretation Comments Chloride Lvl (test code = Chloride Lvl) 102 95-109 [facility] HospitalFlynnLANCE [place]LE [address]24XLZCP9059-56-16 09:04:00 Test Item Value Reference Range Interpretation Comments CO2 (test code = CO2) 25 24-32 [place] 509392-07-18 09:04:00 Test Item Value Reference Range Interpretation Comments Calcium Lvl (test code = Calcium Lvl) 9.1 8.5-10.5 [facility] HospitalFlynnLANCE [place]LE [address]MYCMW0076-59-29 09:04:00 Test Item Value Reference Range Interpretation Comments Total Protein (test code = Total 6.2 6.4-8.4 Protein) [place] 509392-07-18 09:04:00 Test Item Value Reference Range Interpretation Comments Albumin Lvl (test code = Albumin Lvl) 2.8 3.5-5.0 [facility] [id number] 09:04:00 Test Item Value Reference Range Interpretation Comments ALT (test code = ALT) 78 See_Comment [Auto mated message] The system which ge nerated this result transmit swathi reference range : <=65. The reference range was not used to interpr et this result as deny l/abnormal. [facility] [id number] 09:04:00 Test Item Value Reference Range Interpretation Comments AST (test code = AST) 117 See_Comment [Auto mated message] The system which ge nerated this result transmit swathi reference range : <=37. The reference range was not used to interpr et this result as deny l/abnormal. [facility] [id number] 09:04:00 Test Item Value Reference Range Interpretation Comments Alk Phos (test code = Alk Phos) 251 39-136 [facility] NNBVS6236-44-05 09:04:00 Test Item Value Reference Range Interpretation Comments Bili Total (test code = Bili Total) 0.9 0.2-1.3 [facility]Play[facility] [id number] 09:04:00 Test Item Value Reference Range Interpretation Comments AGAP (test code = AGAP) 11.0 10.0-20.0 [facility] [id number] 09:04:00 Test Item Value Reference Range Interpretation Comments B/C Ratio (test code = B/C Ratio) 6 1 6-25 [facility] [id number] 09:04:00 Test Item Value Reference Range Interpretation Comments Globulin (test code = Globulin) 3.4 2.7-4.2 [facility] [id number] 09:04:00 Test Item Value Reference Range Interpretation Comments A/G Ratio (test code = A/G Ratio) 0.8 1 0.7-1.6 [facility] [id number] 09:04:00 Test Item Value Reference Range Interpretation Comments eGFR (test code = eGFR) 8 [facility] GreenvilleGatnzyfFCWPJPFSRY2911-38-08 09:04:00 Test Item Value Reference Range Interpretation Comments D-Dimer (test code = D-Dimer) 3.03 [facility] GreenvilleTsmmkhlNQSNQEDMYZ4385-45-90 09:04:00 Test Item Value Reference Range Interpretation Comments WBC (test code = WBC) 3.6 3.7-10.4 [place] 796562-07-18 09:04:00 Test Item Value Reference Range Interpretation Comments RBC (test code = RBC) 2.07 4.70-6.10 [place] 796562-07-18 09:04:00 Test Item Value Reference Range Interpretation Comments Hgb (test code = Hgb) 7.5 14.0-18.0 [place] 796562-07-18 09:04:00 Test Item Value Reference Range Interpretation Comments Hct (test code = Hct) 22.0 42.0-54.0 [place] 796562-07-18 09:04:00 Test Item Value Reference Range Interpretation Comments MCV (test code = MCV) 106.3 80.0-94.0 [place] 796562-07-18 09:04:00 Test Item Value Reference Range Interpretation Comments MCH (test code = MCH) 36.1 pg 27.0-31.0 [facility] GreenvilleBxctazjZSXLLRWLKT4116-28-11 09:04:00 Test Item Value Reference Range Interpretation Comments MCHC (test code = MCHC) 33.9 32.0-36.0 [place] 796562-07-18 09:04:00 Test Item Value Reference Range Interpretation Comments RDW (test code = RDW) 23.9 11.5-14.5 [place] 796562-07-18 09:04:00 Test Item Value Reference Range Interpretation Comments Platelet (test code = Platelet) 133 133-450 [facility] GreenvilleFstdhqiATQZGLDZWJ9829-54-36 09:04:00 Test Item Value Reference Range Interpretation Comments MPV (test code = MPV) 8.1 7.4-10.4 [place] 796562-07-18 09:04:00 Test Item Value Reference Range Interpretation Comments Segs (test code = Segs) 60.8 45.0-75.0 [facility] GreenvilleVvlycuaAHOTYEMFYM0208-94-04 09:04:00 Test Item Value Reference Range Interpretation Comments Lymphocytes (test code = Lymphocytes) 22.3 20.0-40.0 [place] 796562-07-18 09:04:00 Test Item Value Reference Range Interpretation Comments Monocytes (test code = Monocytes) 13.9 2.0-12.0 [place] 796562-07-18 09:04:00 Test Item Value Reference Range Interpretation Comments Eosinophils (test code = 2.6 See_Comment [A utomated message] The Eosinophils) system which ge nerated this result tra nsmitted reference range : <=4.0. The reference r samantha was not used to int erpret this result as normal/abnormal . [facility] GreenvilleBukhcavIFFIBOJCBK2615-37-01 09:04:00 Test Item Value Reference Range Interpretation Comments Basophils (test code = 0.4 See_Comment [Aut omated message] The Basophils) system which ge nerated this result tra nsmitted reference range : <=1.0. The reference r samantha was not used to int erpret this result as normal/abnormal . [facility] GreenvilleVjyjmucTKNZEWUNSM3082-05-04 09:04:00 Test Item Value Reference Range Interpretation Comments Neutrophils # (test code = Neutrophils 2.2 1.5-8.1 #) [place] 796562-07-18 09:04:00 Test Item Value Reference Range Interpretation Comments Lymphocytes # (test code = Lymphocytes 0.8 1.0-5.5 #) [place] [address]-07-18 09:04:00 Test Item Value Reference Range Interpretation Comments Monocytes # (test code 0.5 See_Comment [Aut omated message] The = Monocytes #) system which generated this result tra nsmitted reference range : <=0.8. The reference r samantha was not used to int erpret this result as normal/abnormal . [place] [address]-07-18 09:04:00 Test Item Value Reference Range Interpretation Comments Eosinophils # (test code 0.1 See_Comment [A utomated message] The = Eosinophils #) system [employer] h generated this result tra nsmitted reference range : <=0.5. The reference r samantha was not used to int erpret this result as normal/abnormal . [id number] 09:04:00 Test Item Value Reference Range Interpretation Comments Macrocyte (test code = 1+ *ABN*(12/15/21 Macrocyte) 4:04 AM) [facility] [id number] 09:04:00 Test Item Value Reference Range Interpretation Comments C-REACTIVE PROTEIN (test code = 25.1 C-REACTIVE PROTEIN) [id number] 09:04:00 Test Item Value Reference Range Interpretation Comments Vanco Lvl (test code = Vanco Lvl) 15.2 [facility] - [id number] 00:29:00 Test Item Value Reference Range Interpretation Comments MRSA by PCR (test Negative (12/14/21 7:29 code = MRSA by PCR) PM) [facility] - [id number] 00:29:00 Test Item Value Reference Range Interpretation Comments MRSA by PCR (test Negative (12/14/21 7:29 code = MRSA by PCR) PM) [facility] - [id number] 00:29:00 Test Item Value Reference Range Interpretation Comments MRSA by PCR (test Negative (12/14/21 7:29 code = MRSA by PCR) PM) [facility] - [id number] 00:29:00 Test Item Value Reference Range Interpretation Comments MRSA by PCR (test Negative (12/14/21 7:29 code = MRSA by PCR) PM) [facility] - [id number] 00:29:00 Test Item Value Reference Range Interpretation Comments MRSA by PCR (test Negative (12/14/21 7:29 code = MRSA by PCR) PM) [facility] - [id number] 00:29:00 Test Item Value Reference Range Interpretation Comments MRSA by PCR (test Negative (12/14/21 7:29 code = MRSA by PCR) PM) [facility] - [id number] 00:29:00 Test Item Value Reference Range Interpretation Comments MRSA by PCR (test Negative (12/14/21 7:29 code = MRSA by PCR) PM) [facility] - [id number] 00:29:00 Test Item Value Reference Range Interpretation Comments MRSA by PCR (test Negative (12/14/21 7:29 code = MRSA by PCR) PM) [facility] - [id number] 00:29:00 Test Item Value Reference Range Interpretation Comments MRSA by PCR (test Negative (12/14/21 7:29 code = MRSA by PCR) PM) [facility] - [id number] 00:29:00 Test Item Value Reference Range Interpretation Comments MRSA by PCR (test Negative (12/14/21 7:29 code = MRSA by PCR) PM) [facility] - [id number] 00:29:00 Test Item Value Reference Range Interpretation Comments MRSA by PCR (test Negative (12/14/21 7:29 code = MRSA by PCR) PM) [facility] - [id number] 00:29:00 Test Item Value Reference Range Interpretation Comments MRSA by PCR (test Negative (12/14/21 7:29 code = MRSA by PCR) PM) [facility] - [id number] 00:29:00 Test Item Value Reference Range Interpretation Comments MRSA by PCR (test Negative (12/14/21 7:29 code = MRSA by PCR) PM) [facility] [id number] 23:56:00 Test Item Value Reference Range Interpretation Comments Source Respiratory Nasophrngl Swb Panel PCR (test code = *NA*(12/14/21 6:56 PM) Source Respiratory Panel PCR) [facility]IAL[facility] [id number] 23:56:00 Test Item Value Reference Range Interpretation Comments Influenza A PCR (test Negative (12/14/21 6:56 code = Influenza A PCR) PM) [facility] [id number] 23:56:00 Test Item Value Reference Range Interpretation Comments Influenza B PCR (test Negative (12/14/21 6:56 code = Influenza B PCR) PM) [facility] [id number] 23:56:00 Test Item Value Reference Range Interpretation Comments RSV PCR (test code = Negative (12/14/21 6:56 RSV PCR) PM) [facility] [id number] 23:56:00 Test Item Value Reference Range Interpretation Comments Source Respiratory Nasophrngl Swb Panel PCR (test code = *NA*(12/14/21 6:56 PM) Source Respiratory Panel PCR) [facility] [id number] 23:56:00 Test Item Value Reference Range Interpretation Comments Influenza A PCR (test Negative (12/14/21 6:56 code = Influenza A PCR) PM) [facility]2022-07-17 23:56:00 Test Item Value Reference Range Interpretation Comments Influenza B PCR (test Negative (12/14/21 6:56 code = Influenza B PCR) PM) [facility]2022-07-17 23:56:00 Test Item Value Reference Range Interpretation Comments RSV PCR (test code = Negative (12/14/21 6:56 RSV PCR) PM) [facility] [id number] 23:56:00 Test Item Value Reference Range Interpretation Comments Source Respiratory Nasophrngl Swb Panel PCR (test code = *NA*(12/14/21 6:56 PM) Source Respiratory Panel PCR) [facility]2022-07-17 23:56:00 Test Item Value Reference Range Interpretation Comments Influenza A PCR (test Negative (12/14/21 6:56 code = Influenza A PCR) PM) [facility] [id number] 23:56:00 Test Item Value Reference Range Interpretation Comments Influenza B PCR (test Negative (12/14/21 6:56 code = Influenza B PCR) PM) [facility]2022-07-17 23:56:00 Test Item Value Reference Range Interpretation Comments RSV PCR (test code = Negative (12/14/21 6:56 RSV PCR) PM) [facility]2022-07-17 23:56:00 Test Item Value Reference Range Interpretation Comments Source Respiratory Nasophrngl Swb Panel PCR (test code = *NA*(12/14/21 6:56 PM) Source Respiratory Panel PCR) [facility]IAL[facility] [id number] 23:56:00 Test Item Value Reference Range Interpretation Comments Influenza A PCR (test Negative (12/14/21 6:56 code = Influenza A PCR) PM) [facility]annIALEC[facility] [id number] 23:56:00 Test Item Value Reference Range Interpretation Comments Influenza B PCR (test Negative (12/14/21 6:56 code = Influenza B PCR) PM) [facility] [id number] 23:56:00 Test Item Value Reference Range Interpretation Comments RSV PCR (test code = Negative (12/14/21 6:56 RSV PCR) PM) [facility] [id number] 23:56:00 Test Item Value Reference Range Interpretation Comments Source Respiratory Nasophrngl Swb Panel PCR (test code = *NA*(12/14/21 6:56 PM) Source Respiratory Panel PCR) [facility] [id number] 23:56:00 Test Item Value Reference Range Interpretation Comments Influenza A PCR (test Negative (12/14/21 6:56 code = Influenza A PCR) PM) [facility]annIALEC[facility] [id number] 23:56:00 Test Item Value Reference Range Interpretation Comments Influenza B PCR (test Negative (12/14/21 6:56 code = Influenza B PCR) PM) [facility] [id number] 23:56:00 Test Item Value Reference Range Interpretation Comments RSV PCR (test code = Negative (12/14/21 6:56 RSV PCR) PM) [facility] [id number] 23:56:00 Test Item Value Reference Range Interpretation Comments Source Respiratory Nasophrngl Swb Panel PCR (test code = *NA*(12/14/21 6:56 PM) Source Respiratory Panel PCR) [facility] [id number] 23:56:00 Test Item Value Reference Range Interpretation Comments Influenza A PCR (test Negative (12/14/21 6:56 code = Influenza A PCR) PM) [facility] [id number] 23:56:00 Test Item Value Reference Range Interpretation Comments Influenza B PCR (test Negative (12/14/21 6:56 code = Influenza B PCR) PM) [facility] [id number] 23:56:00 Test Item Value Reference Range Interpretation Comments RSV PCR (test code = Negative (12/14/21 6:56 RSV PCR) PM) [facility] [id number] 23:56:00 Test Item Value Reference Range Interpretation Comments Source Respiratory Nasophrngl Swb Panel PCR (test code = *NA*(12/14/21 6:56 PM) Source Respiratory Panel PCR) [facility] [id number] 23:56:00 Test Item Value Reference Range Interpretation Comments Influenza A PCR (test Negative (12/14/21 6:56 code = Influenza A PCR) PM) [facility] [id number] 23:56:00 Test Item Value Reference Range Interpretation Comments Influenza B PCR (test Negative (12/14/21 6:56 code = Influenza B PCR) PM) [facility] [id number] 23:56:00 Test Item Value Reference Range Interpretation Comments RSV PCR (test code = Negative (12/14/21 6:56 RSV PCR) PM) [facility] [id number] 23:56:00 Test Item Value Reference Range Interpretation Comments Source Respiratory Nasophrngl Swb Panel PCR (test code = *NA*(12/14/21 6:56 PM) Source Respiratory Panel PCR) [facility]annIALEC[facility] [id number] 23:56:00 Test Item Value Reference Range Interpretation Comments Influenza A PCR (test Negative (12/14/21 6:56 code = Influenza A PCR) PM) [facility] [id number] 23:56:00 Test Item Value Reference Range Interpretation Comments Influenza B PCR (test Negative (12/14/21 6:56 code = Influenza B PCR) PM) [facility] [id number] 23:56:00 Test Item Value Reference Range Interpretation Comments RSV PCR (test code = Negative (12/14/21 6:56 RSV PCR) PM) [facility] [id number] 23:56:00 Test Item Value Reference Range Interpretation Comments Source Respiratory Nasophrngl Swb Panel PCR (test code = *NA*(12/14/21 6:56 PM) Source Respiratory Panel PCR) [facility] [id number] 23:56:00 Test Item Value Reference Range Interpretation Comments Influenza A PCR (test Negative (12/14/21 6:56 code = Influenza A PCR) PM) [facility]IAL[facility] [id number] 23:56:00 Test Item Value Reference Range Interpretation Comments Influenza B PCR (test Negative (12/14/21 6:56 code = Influenza B PCR) PM) [facility]IAL[facility] [id number] 23:56:00 Test Item Value Reference Range Interpretation Comments RSV PCR (test code = Negative (12/14/21 6:56 RSV PCR) PM) [facility]annIALECUN[facility] [id number] 23:56:00 Test Item Value Reference Range Interpretation Comments Source Respiratory Nasophrngl Swb Panel PCR (test code = *NA*(12/14/21 6:56 PM) Source Respiratory Panel PCR) [facility]IALECUN[facility] [id number] 23:56:00 Test Item Value Reference Range Interpretation Comments Influenza A PCR (test Negative (12/14/21 6:56 code = Influenza A PCR) PM) [facility] [id number] 23:56:00 Test Item Value Reference Range Interpretation Comments Influenza B PCR (test Negative (12/14/21 6:56 code = Influenza B PCR) PM) [facility]IALEC[facility] [id number] 23:56:00 Test Item Value Reference Range Interpretation Comments RSV PCR (test code = Negative (12/14/21 6:56 RSV PCR) PM) [facility]IAL[facility] [id number] 23:56:00 Test Item Value Reference Range Interpretation Comments Source Respiratory Nasophrngl Swb Panel PCR (test code = *NA*(12/14/21 6:56 PM) Source Respiratory Panel PCR) [facility]IALEC[facility] [id number] 23:56:00 Test Item Value Reference Range Interpretation Comments Influenza A PCR (test Negative (12/14/21 6:56 code = Influenza A PCR) PM) [facility]IAL[facility] [id number] 23:56:00 Test Item Value Reference Range Interpretation Comments Influenza B PCR (test Negative (12/14/21 6:56 code = Influenza B PCR) PM) [facility] [id number] 23:56:00 Test Item Value Reference Range Interpretation Comments RSV PCR (test code = Negative (12/14/21 6:56 RSV PCR) PM) [facility] [id number] 23:56:00 Test Item Value Reference Range Interpretation Comments Source Respiratory Nasophrngl Swb Panel PCR (test code = *NA*(12/14/21 6:56 PM) Source Respiratory Panel PCR) [facility]annIALECUN[facility] [id number] 23:56:00 Test Item Value Reference Range Interpretation Comments Influenza A PCR (test Negative (12/14/21 6:56 code = Influenza A PCR) PM) [facility] [id number] 23:56:00 Test Item Value Reference Range Interpretation Comments Influenza B PCR (test Negative (12/14/21 6:56 code = Influenza B PCR) PM) [facility]LEC[facility] [id number] 23:56:00 Test Item Value Reference Range Interpretation Comments RSV PCR (test code = Negative (12/14/21 6:56 RSV PCR) PM) [facility] [id number] 23:56:00 Test Item Value Reference Range Interpretation Comments Source Respiratory Nasophrngl Swb Panel PCR (test code = *NA*(12/14/21 6:56 PM) Source Respiratory Panel PCR) [facility] [id number] 23:56:00 Test Item Value Reference Range Interpretation Comments Influenza A PCR (test Negative (12/14/21 6:56 code = Influenza A PCR) PM) [facility]LEC[facility] [id number] 23:56:00 Test Item Value Reference Range Interpretation Comments Influenza B PCR (test Negative (12/14/21 6:56 code = Influenza B PCR) PM) [facility]LEC[facility] [id number] 23:56:00 Test Item Value Reference Range Interpretation Comments RSV PCR (test code = Negative (12/14/21 6:56 RSV PCR) PM[id number] 23:55:00 Test Item Value Reference Range Interpretation Comments BNP (test code = BNP) [address] [facility] [employer]2022-07-17 23:55:00 Test Item Value Reference Range Interpretation Comments Procalcitonin Lvl (test 0.80 See_Comment [Au tomated message] code = Procalcitonin Lvl) Th e system which generated this result transmitted ref erence range: <=0.10. The reference range was not used to interpr et this result as normal/abnormal . [facility] [employer]2022-07-17 23:55:00 Test Item Value Reference Range Interpretation Comments BNP (test code = BNP) [address] [facility] [employer] [id number] 23:55:00 Test Item Value Reference Range Interpretation Comments Procalcitonin Lvl (test 0.80 See_Comment [Au tomated message] code = Procalcitonin Lvl) e system which generated this result transmitted ref erence range: <=0.10. The reference range was not used to interpr et this result as normal/abnormal . [facility] [employer]2022-07-17 23:55:00 Test Item Value Reference Range Interpretation Comments BNP (test code = BNP) [address] [facility] [employer]2022-07-17 23:55:00 Test Item Value Reference Range Interpretation Comments Procalcitonin Lvl (test 0.80 See_Comment [Au tomated message] code = Procalcitonin Lvl) Th e system which generated this result transmitted ref erence range: <=0.10. The reference range was not used to interpr et this result as normal/abnormal . [facility] [employer]2022-07-17 23:55:00 Test Item Value Reference Range Interpretation Comments BNP (test code = BNP) [address] [facility] [employer] [id number] 23:55:00 Test Item Value Reference Range Interpretation Comments Procalcitonin Lvl (test 0.80 See_Comment [Au tomated message] code = Procalcitonin Lvl) Th e system which generated this result transmitted ref erence range: <=0.10. The reference range was not used to interpr et this result as normal/abnormal . [facility] [employer]2022-07-17 23:55:00 Test Item Value Reference Range Interpretation Comments BNP (test code = BNP) [address] [facility] [employer] [id number] 23:55:00 Test Item Value Reference Range Interpretation Comments Procalcitonin Lvl (test 0.80 See_Comment [Au tomated message] code = Procalcitonin Lvl) Th e system which generated this result transmitted ref erence range: <=0.10. The reference range was not used to interpr et this result as normal/abnormal . [facility] [employer]2022-07-17 23:55:00 Test Item Value Reference Range Interpretation Comments BNP (test code = BNP) [address] [facility] [employer] [id number] 23:55:00 Test Item Value Reference Range Interpretation Comments Procalcitonin Lvl (test 0.80 See_Comment [Au tomated message] code = Procalcitonin Lvl) e system which generated this result transmitted ref erence range: <=0.10. The reference range was not used to interpr et this result as normal/abnormal . [facility] [employer]2022-07-17 23:55:00 Test Item Value Reference Range Interpretation Comments BNP (test code = BNP) [address] [facility] [employer] [id number] 23:55:00 Test Item Value Reference Range Interpretation Comments Procalcitonin Lvl (test 0.80 See_Comment [Au tomated message] code = Procalcitonin Lvl) Th e system which generated this result transmitted ref erence range: <=0.10. The reference range was not used to interpr et this result as normal/abnormal . [facility] [employer]2022-07-17 23:55:00 Test Item Value Reference Range Interpretation Comments BNP (test code = BNP) [address] [facility] [employer] [id number] 23:55:00 Test Item Value Reference Range Interpretation Comments Procalcitonin Lvl (test 0.80 See_Comment [Au tomated message] code = Procalcitonin Lvl) Th e system which generated this result transmitted ref erence range: <=0.10. The reference range was not used to interpr et this result as normal/abnormal . [facility] [employer]2022-07-17 23:55:00 Test Item Value Reference Range Interpretation Comments BNP (test code = BNP) [address] [facility] [employer] [id number] 23:55:00 Test Item Value Reference Range Interpretation Comments Procalcitonin Lvl (test 0.80 See_Comment [Au tomated message] code = Procalcitonin Lvl) Th e system which generated this result transmitted ref erence range: <=0.10. The reference range was not used to interpr et this result as normal/abnormal . [facility] [employer]2022-07-17 23:55:00 Test Item Value Reference Range Interpretation Comments BNP (test code = BNP) [address] [facility] [employer] [id number] 23:55:00 Test Item Value Reference Range Interpretation Comments Procalcitonin Lvl (test 0.80 See_Comment [Au tomated message] code = Procalcitonin Lvl) Th e system which generated this result transmitted ref erence range: <=0.10. The reference range was not used to interpr et this result as normal/abnormal . [facility] [employer]2022-07-17 23:55:00 Test Item Value Reference Range Interpretation Comments BNP (test code = BNP) [address] [facility] [employer] [id number] 23:55:00 Test Item Value Reference Range Interpretation Comments Procalcitonin Lvl (test 0.80 See_Comment [Au tomated message] code = Procalcitonin Lvl) Th e system which generated this result transmitted ref erence range: <=0.10. The reference range was not used to interpr et this result as normal/abnormal . [facility] [employer]2022-07-17 23:55:00 Test Item Value Reference Range Interpretation Comments BNP (test code = BNP) [address] [facility] [employer] [id number] 23:55:00 Test Item Value Reference Range Interpretation Comments Procalcitonin Lvl (test 0.80 See_Comment [Au tomated message] code = Procalcitonin Lvl) Th e system which generated this result transmitted ref erence range: <=0.10. The reference range was not used to interpr et this result as normal/abnormal . [facility] [employer]2022-07-17 23:55:00 Test Item Value Reference Range Interpretation Comments BNP (test code = BNP) [address] [facility] [employer] [id number] 23:55:00 Test Item Value Reference Range Interpretation Comments Procalcitonin Lvl (test 0.80 See_Comment [Au tomated message] code = Procalcitonin Lvl) Th e system which generated this result transmitted ref erence range: <=0.10. The reference range was not used to interpr et this result as normal/abnormal . [facility] [employer]comannCARDIAC [id number] 21:26:00 Test Item Value Reference Range Interpretation Comments HS Troponin I 1 Hr (test code = HS 389 Troponin I 1 Hr) [facility] [id number] 21:26:00 Test Item Value Reference Range Interpretation Comments HS Troponin I 0 to 1 Hour Delta (test 49 1 code = HS Troponin I 0 to 1 Hour Delta) [facility] HospitalannCARBurbio.comAC [id number] 21:26:00 Test Item Value Reference Range Interpretation Comments HS Troponin I 1 Hr (test code = HS 389 Troponin I 1 Hr) [facility] HospitalannCARBurbio.comAC [id number] 21:26:00 Test Item Value Reference Range Interpretation Comments HS Troponin I 0 to 1 Hour Delta (test 49 1 code = HS Troponin I 0 to 1 Hour Delta) [facility] HospitalScubaTribeDIAC [id number] 21:26:00 Test Item Value Reference Range Interpretation Comments HS Troponin I 1 Hr (test code = HS 389 Troponin I 1 Hr) [facility] [employer] LtdCARBurbio.comAC [id number] 21:26:00 Test Item Value Reference Range Interpretation Comments HS Troponin I 0 to 1 Hour Delta (test 49 1 code = HS Troponin I 0 to 1 Hour Delta) [facility] HospitalannFaveeoAC [id number] 21:26:00 Test Item Value Reference Range Interpretation Comments HS Troponin I 1 Hr (test code = HS 389 Troponin I 1 Hr) [facility]annCARDIAC [id number] 21:26:00 Test Item Value Reference Range Interpretation Comments HS Troponin I 0 to 1 Hour Delta (test 49 1 code = HS Troponin I 0 to 1 Hour Delta) [facility]annCARDIAC [id number] 21:26:00 Test Item Value Reference Range Interpretation Comments HS Troponin I 1 Hr (test code = HS 389 Troponin I 1 Hr) [facility] Hospitalann2359 MediaDIAC [id number] 21:26:00 Test Item Value Reference Range Interpretation Comments HS Troponin I 0 to 1 Hour Delta (test 49 1 code = HS Troponin I 0 to 1 Hour Delta) [facility] HermannCARDIAC [id number] 21:26:00 Test Item Value Reference Range Interpretation Comments HS Troponin I 1 Hr (test code = HS 389 Troponin I 1 Hr) [facility] HermannCARDIAC [id number] 21:26:00 Test Item Value Reference Range Interpretation Comments HS Troponin I 0 to 1 Hour Delta (test 49 1 code = HS Troponin I 0 to 1 Hour Delta) [facility] HermannCARDIAC [id number] 21:26:00 Test Item Value Reference Range Interpretation Comments HS Troponin I 1 Hr (test code = HS 389 Troponin I 1 Hr) [facility] HermannCARDIAC [id number] 21:26:00 Test Item Value Reference Range Interpretation Comments HS Troponin I 0 to 1 Hour Delta (test 49 1 code = HS Troponin I 0 to 1 Hour Delta) [facility] HermannCARDIAC [id number] 21:26:00 Test Item Value Reference Range Interpretation Comments HS Troponin I 1 Hr (test code = HS 389 Troponin I 1 Hr) [facility] [id number] 21:26:00 Test Item Value Reference Range Interpretation Comments HS Troponin I 0 to 1 Hour Delta (test 49 1 code = HS Troponin I 0 to 1 Hour Delta) [facility] [id number] 21:26:00 Test Item Value Reference Range Interpretation Comments HS Troponin I 1 Hr (test code = HS 389 Troponin I 1 Hr) [facility] [id number] 21:26:00 Test Item Value Reference Range Interpretation Comments HS Troponin I 0 to 1 Hour Delta (test 49 1 code = HS Troponin I 0 to 1 Hour Delta) [facility] [id number] 21:26:00 Test Item Value Reference Range Interpretation Comments HS Troponin I 1 Hr (test code = HS 389 Troponin I 1 Hr) [facility] [id number] 21:26:00 Test Item Value Reference Range Interpretation Comments HS Troponin I 0 to 1 Hour Delta (test 49 1 code = HS Troponin I 0 to 1 Hour Delta) [facility]annC[facility] [id number] 21:26:00 Test Item Value Reference Range Interpretation Comments HS Troponin I 1 Hr (test code = HS 389 Troponin I 1 Hr) [facility] [id number] 21:26:00 Test Item Value Reference Range Interpretation Comments HS Troponin I 0 to 1 Hour Delta (test 49 1 code = HS Troponin I 0 to 1 Hour Delta) [facility] HospitalVivogig [id number] 21:26:00 Test Item Value Reference Range Interpretation Comments HS Troponin I 1 Hr (test code = HS 389 Troponin I 1 Hr) [facility] HospitalScubaTribeBAP[facility] [id number] 21:26:00 Test Item Value Reference Range Interpretation Comments HS Troponin I 0 to 1 Hour Delta (test 49 1 code = HS Troponin I 0 to 1 Hour Delta) [facility] HospitalScubaTribeBAPT[facility] [id number] 21:26:00 Test Item Value Reference Range Interpretation Comments HS Troponin I 1 Hr (test code = HS 389 Troponin I 1 Hr) [facility] HospitalScubaTribeBAP[facility] [id number] 21:26:00 Test Item Value Reference Range Interpretation Comments HS Troponin I 0 to 1 Hour Delta (test 49 1 code = HS Troponin I 0 to 1 Hour Delta) [facility] CenterFaveeo [id number] 20:10:00 Test Item Value Reference Range Interpretation Comments HS Troponin I Baseline (test code = HS 340 Troponin I Baseline) [facility] HospitalSferra [id number] 20:10:00 Test Item Value Reference Range Interpretation Comments Glucose Lvl (test code = Glucose Lvl) 60 70-[address] [facility] [employer] [id number] 20:10:00 Test Item Value Reference Range Interpretation Comments BUN (test code = BUN) 35 7-22 [facility] HospitalSferra [id number] 20:10:00 Test Item Value Reference Range Interpretation Comments Creatinine Lvl (test code = Creatinine 6.10 0.50-1.40 Lvl) [facility] HospitalSferra [id number] 20:10:00 Test Item Value Reference Range Interpretation Comments Sodium Lvl (test code = Sodium Lvl) 139 135-145 [facility] HospitalBerry KitchenAVZWN9927-17-78 20:10:00 Test Item Value Reference Range Interpretation Comments Potassium Lvl (test code = Potassium 3.1 3.5-5.1 Lvl) [facility] HospitalSferra [id number] 20:10:00 Test Item Value Reference Range Interpretation Comments Chloride Lvl (test code = Chloride Lvl) 105 95-109 [facility] HospitalS[facility] [id number] 20:10:00 Test Item Value Reference Range Interpretation Comments CO2 (test code = CO2) 28 24-32 [place] 509392-07-17 20:10:00 Test Item Value Reference Range Interpretation Comments Calcium Lvl (test code = Calcium Lvl) 8.1 8.5-10.5 [place] 509392-07-17 20:10:00 Test Item Value Reference Range Interpretation Comments Total Protein (test code = Total 5.8 6.4-8.4 Protein) [place] 509392-07-17 20:10:00 Test Item Value Reference Range Interpretation Comments Albumin Lvl (test code = Albumin Lvl) 2.6 3.5-5.0 [place] 509392-07-17 20:10:00 Test Item Value Reference Range Interpretation Comments ALT (test code = ALT) 74 See_Comment [Auto mated message] The system which ge nerated this result transmit swathi reference range : <=65. The reference range was not used to interpr et this result as deny l/abnormal. [place] 509392-07-17 20:10:00 Test Item Value Reference Range Interpretation Comments AST (test code = AST) 117 See_Comment [Auto mated message] The system which ge nerated this result transmit swathi reference range : <=37. The reference range was not used to interpr et this result as deny l/abnormal. [place] 509392-07-17 20:10:00 Test Item Value Reference Range Interpretation Comments Alk Phos (test code = Alk Phos) 241 39-136 [place] 509392-07-17 20:10:00 Test Item Value Reference Range Interpretation Comments Bili Total (test code = Bili Total) 0.8 0.2-1.3 [place] 509392-07-17 20:10:00 Test Item Value Reference Range Interpretation Comments AGAP (test code = AGAP) 9.1 10.0-20.0 [place] 509392-07-17 20:10:00 Test Item Value Reference Range Interpretation Comments B/C Ratio (test code = B/C Ratio) 6 1 6-25 [place] 509392-07-17 20:10:00 Test Item Value Reference Range Interpretation Comments Globulin (test code = Globulin) 3.2 2.7-4.2 [facility] [id number] 20:10:00 Test Item Value Reference Range Interpretation Comments A/G Ratio (test code = A/G Ratio) 0.8 1 0.7-1.6 [facility] [id number] 20:10:00 Test Item Value Reference Range Interpretation Comments eGFR (test code = eGFR) 9 [facility]villeAepcymaFATJLRMJZW8716-73-39 20:10:00 Test Item Value Reference Range Interpretation Comments WBC (test code = WBC) 4.3 3.7-10.4 [place] 796562-07-17 20:10:00 Test Item Value Reference Range Interpretation Comments RBC (test code = RBC) 2.17 4.70-6.10 [facility] GreenvilleTkcqlysKSSNFQTZWB6986-84-52 20:10:00 Test Item Value Reference Range Interpretation Comments Hgb (test code = Hgb) 7.7 14.0-18.0 [place] 796562-07-17 20:10:00 Test Item Value Reference Range Interpretation Comments Hct (test code = Hct) 22.9 42.0-54.0 [place] 796562-07-17 20:10:00 Test Item Value Reference Range Interpretation Comments MCV (test code = MCV) 105.9 80.0-94.0 [facility] GreenvilleHyyuwwaVRSSAKWNSK0478-95-23 20:10:00 Test Item Value Reference Range Interpretation Comments MCH (test code = MCH) 35.4 pg 27.0-31.0 [facility] GreenvilleYfxdodgMYQAMSDYDM5723-95-91 20:10:00 Test Item Value Reference Range Interpretation Comments MCHC (test code = MCHC) 33.4 32.0-36.0 [place] 796562-07-17 20:10:00 Test Item Value Reference Range Interpretation Comments RDW (test code = RDW) 23.6 11.5-14.5 [place] 796562-07-17 20:10:00 Test Item Value Reference Range Interpretation Comments Platelet (test code = Platelet) 146 133-450 [facility] GreenvilleGcqoriyIMGAXDWHUV2242-93-13 20:10:00 Test Item Value Reference Range Interpretation Comments MPV (test code = MPV) 8.0 7.4-10.4 [place] 796562-07-17 20:10:00 Test Item Value Reference Range Interpretation Comments Plt Morph (test code = Normal (12/14/21 3:10 Plt Morph) PM) [facility] GreenvilleIayrpdvJIGSCRSTPF7355-07-46 20:10:00 Test Item Value Reference Range Interpretation Comments Segs (test code = Segs) 67.4 45.0-75.0 [facility] GreenvilleEcwsyqePXQBMRETDX3714-18-80 20:10:00 Test Item Value Reference Range Interpretation Comments Lymphocytes (test code = Lymphocytes) 12.8 20.0-40.0 [facility] GreenvilleAdbizhbCOLWFRLUHS5089-77-75 20:10:00 Test Item Value Reference Range Interpretation Comments Monocytes (test code = Monocytes) 15.1 2.0-12.0 [facility] GreenvillePotjfecERKPPFOMQM0325-53-37 20:10:00 Test Item Value Reference Range Interpretation Comments Eosinophils (test code = 4.1 See_Comment [A utomated message] The Eosinophils) system which ge nerated this result tra nsmitted reference range : <=4.0. The reference r samantha was not used to int erpret this result as normal/abnormal . [facility] GreenvilleXkmeitoISXSNVSKQL7697-74-45 20:10:00 Test Item Value Reference Range Interpretation Comments Basophils (test code = 0.6 See_Comment [Aut omated message] The Basophils) system which ge nerated this result tra nsmitted reference range : <=1.0. The reference r samantha was not used to int erpret this result as normal/abnormal . [facility] GreenvilleUytndwaTZORYRZLTQ1543-03-15 20:10:00 Test Item Value Reference Range Interpretation Comments Neutrophils # (test code = Neutrophils 2.9 1.5-8.1 #) [facility] GreenvilleYnwfzoqKROXHITRIR1150-72-98 20:10:00 Test Item Value Reference Range Interpretation Comments Lymphocytes # (test code = Lymphocytes 0.5 1.0-5.5 #) [place] 796562-07-17 20:10:00 Test Item Value Reference Range Interpretation Comments Monocytes # (test code 0.6 See_Comment [Aut omated message] The = Monocytes #) system which generated this result tra nsmitted reference range : <=0.8. The reference r samantha was not used to int erpret this result as normal/abnormal . [facility] GreenvilleZtxrlzeIKDYODHMAW4119-38-24 20:10:00 Test Item Value Reference Range Interpretation Comments Eosinophils # (test code 0.2 See_Comment [A utomated message] The = Eosinophils #) system [employer] h generated this result tra nsmitted reference range : <=0.5. The reference r samantha was not used to int erpret this result as normal/abnormal . [facility] SurgeryBugmungPOMJFBDWKD1344-96-82 20:10:00 Test Item Value Reference Range Interpretation Comments Anisocyte (test code = 1+ *ABN*(12/14/21 Anisocyte) 3:10 PM) [facility] SurgeryTqacgbgJVWQOKPJNQ4108-75-10 20:10:00 Test Item Value Reference Range Interpretation Comments Macrocyte (test code = 1+ *ABN*(12/14/21 Macrocyte) 3:10 PM) [facility] CenterGnnpqiiISWAWYXSOU6171-39-25 20:10:00 Test Item Value Reference Range Interpretation Comments Coronavirus (COVID-19) Detected MANUEL (test code = 4*ABN*(12/14/21 3:10 Coronavirus (COVID-19) PM) MANUEL) [facility] CenterCARDIAC [id number] 20:10:00 Test Item Value Reference Range Interpretation Comments HS Troponin I Baseline (test code = HS 340 Troponin I Baseline) [facility] CenterPlayground Energy [id number] 20:10:00 Test Item Value Reference Range Interpretation Comments Glucose Lvl (test code = Glucose Lvl) 60 70-99 [facility]2022-07-17 20:10:00 Test Item Value Reference Range Interpretation Comments BUN (test code = BUN) 35 7-22 [facility] [id number] 20:10:00 Test Item Value Reference Range Interpretation Comments Creatinine Lvl (test code = Creatinine 6.10 0.50-1.40 Lvl) [facility] [id number] 20:10:00 Test Item Value Reference Range Interpretation Comments Sodium Lvl (test code = Sodium Lvl) 139 135-145 [facility] CenterPlay[facility] Energy [id number] 20:10:00 Test Item Value Reference Range Interpretation Comments Potassium Lvl (test code = Potassium 3.1 3.5-5.1 Lvl) [facility] [id number] 20:10:00 Test Item Value Reference Range Interpretation Comments Chloride Lvl (test code = Chloride Lvl) 105 95-109 [place] 509392-07-17 20:10:00 Test Item Value Reference Range Interpretation Comments CO2 (test code = CO2) 28 24-32 [place] [address]-07-17 20:10:00 Test Item Value Reference Range Interpretation Comments Calcium Lvl (test code = Calcium Lvl) 8.1 8.5-10.5 [place] 509392-07-17 20:10:00 Test Item Value Reference Range Interpretation Comments Total Protein (test code = Total 5.8 6.4-8.4 Protein) [place] [address]-07-17 20:10:00 Test Item Value Reference Range Interpretation Comments Albumin Lvl (test code = Albumin Lvl) 2.6 3.5-5.0 [place] [address]-07-17 20:10:00 Test Item Value Reference Range Interpretation Comments ALT (test code = ALT) 74 See_Comment [Auto mated message] The system which ge nerated this result transmit swathi reference range : <=65. The reference range was not used to interpr et this result as deny l/abnormal. [place] 509392-07-17 20:10:00 Test Item Value Reference Range Interpretation Comments AST (test code = AST) 117 See_Comment [Auto mated message] The system which ge nerated this result transmit swathi reference range : <=37. The reference range was not used to interpr et this result as deny l/abnormal. [place] 509392-07-17 20:10:00 Test Item Value Reference Range Interpretation Comments Alk Phos (test code = Alk Phos) 241 39-136 [place] 509392-07-17 20:10:00 Test Item Value Reference Range Interpretation Comments Bili Total (test code = Bili Total) 0.8 0.2-1.3 [place] [address]-07-17 20:10:00 Test Item Value Reference Range Interpretation Comments AGAP (test code = AGAP) 9.1 10.0-20.0 [place] [address]-07-17 20:10:00 Test Item Value Reference Range Interpretation Comments B/C Ratio (test code = B/C Ratio) 6 1 6-25 [place] [address]-07-17 20:10:00 Test Item Value Reference Range Interpretation Comments Globulin (test code = Globulin) 3.2 2.7-4.2 [facility] [id number] 20:10:00 Test Item Value Reference Range Interpretation Comments A/G Ratio (test code = A/G Ratio) 0.8 1 0.7-1.6 [facility] [id number] 20:10:00 Test Item Value Reference Range Interpretation Comments eGFR (test code = eGFR) 9 [facility] GreenvilleUzrmoefLOGTCUVJJV2423-44-04 20:10:00 Test Item Value Reference Range Interpretation Comments WBC (test code = WBC) 4.3 3.7-10.4 [facility] GreenvilleQhcbzbcCTLULITHVZ3521-96-18 20:10:00 Test Item Value Reference Range Interpretation Comments RBC (test code = RBC) 2.17 4.70-6.10 [facility] GreenvilleVowtssvBXKVTDQIXU1687-75-45 20:10:00 Test Item Value Reference Range Interpretation Comments Hgb (test code = Hgb) 7.7 14.0-18.0 [facility] GreenvilleUpljgafJTYCIUBUHP4825-27-29 20:10:00 Test Item Value Reference Range Interpretation Comments Hct (test code = Hct) 22.9 42.0-54.0 [facility] GreenvillePjbsnboKTVFHYZOWN7268-00-46 20:10:00 Test Item Value Reference Range Interpretation Comments MCV (test code = MCV) 105.9 80.0-94.0 [facility] GreenvilleYqmevfmEMMTQJVJKJ9656-98-92 20:10:00 Test Item Value Reference Range Interpretation Comments MCH (test code = MCH) 35.4 pg 27.0-31.0 [facility] GreenvilleXtyabsoYSSZDGJQQX5143-15-04 20:10:00 Test Item Value Reference Range Interpretation Comments MCHC (test code = MCHC) 33.4 32.0-36.0 [facility] GreenvilleSqtowtgGDFOWYXTLQ3380-11-19 20:10:00 Test Item Value Reference Range Interpretation Comments RDW (test code = RDW) 23.6 11.5-14.5 [facility] GreenvilleJjoxqiaDYWJOROPGG4523-01-60 20:10:00 Test Item Value Reference Range Interpretation Comments Platelet (test code = Platelet) 146 133-450 [facility] GreenvilleEltnakbWSDWINFWJA7662-39-18 20:10:00 Test Item Value Reference Range Interpretation Comments MPV (test code = MPV) 8.0 7.4-10.4 [place] 796562-07-17 20:10:00 Test Item Value Reference Range Interpretation Comments Plt Morph (test code = Normal (12/14/21 3:10 Plt Morph) PM) [facility] GreenvilleVhztgirLDTESJFKXO7131-91-96 20:10:00 Test Item Value Reference Range Interpretation Comments Segs (test code = Segs) 67.4 45.0-75.0 [facility] GreenvilleQzncbokPGGYBKPPQQ5246-35-10 20:10:00 Test Item Value Reference Range Interpretation Comments Lymphocytes (test code = Lymphocytes) 12.8 20.0-40.0 [place] 796562-07-17 20:10:00 Test Item Value Reference Range Interpretation Comments Monocytes (test code = Monocytes) 15.1 2.0-12.0 [facility] GreenvilleDitcuioIETAIMVUEI8887-74-66 20:10:00 Test Item Value Reference Range Interpretation Comments Eosinophils (test code = 4.1 See_Comment [A utomated message] The Eosinophils) system which ge nerated this result tra nsmitted reference range : <=4.0. The reference r samantha was not used to int erpret this result as normal/abnormal . [facility] GreenvilleXtfszqcMSJSFLWADW1264-77-78 20:10:00 Test Item Value Reference Range Interpretation Comments Basophils (test code = 0.6 See_Comment [Aut omated message] The Basophils) system which ge nerated this result tra nsmitted reference range : <=1.0. The reference r samantha was not used to int erpret this result as normal/abnormal . [facility] GreenvilleKlkvgxpCQDQPJCVMV1205-78-97 20:10:00 Test Item Value Reference Range Interpretation Comments Neutrophils # (test code = Neutrophils 2.9 1.5-8.1 #) [facility] GreenvilleYbiexovYFONQBAOES2022-29-80 20:10:00 Test Item Value Reference Range Interpretation Comments Lymphocytes # (test code = Lymphocytes 0.5 1.0-5.5 #) [place] 796562-07-17 20:10:00 Test Item Value Reference Range Interpretation Comments Monocytes # (test code 0.6 See_Comment [Aut omated message] The = Monocytes #) system which generated this result tra nsmitted reference range : <=0.8. The reference r samantha was not used to int erpret this result as normal/abnormal . [place] 796562-07-17 20:10:00 Test Item Value Reference Range Interpretation Comments Eosinophils # (test code 0.2 See_Comment [A utomated message] The = Eosinophils #) system whic h generated this result tra nsmitted reference range : <=0.5. The reference r samantha was not used to int erpret this result as normal/abnormal . [facility] SurgeryJwefspeVZPFYMWLKJ6344-77-07 20:10:00 Test Item Value Reference Range Interpretation Comments Anisocyte (test code = 1+ *ABN*(12/14/21 Anisocyte) 3:10 PM) [facility] GreenvilleHhfrpbaEPMCLWLROB2135-23-68 20:10:00 Test Item Value Reference Range Interpretation Comments Macrocyte (test code = 1+ *ABN*(12/14/21 Macrocyte) 3:10 PM) [facility] CenterZslxqksESEWVGCXNZ9586-34-73 20:10:00 Test Item Value Reference Range Interpretation Comments Coronavirus (COVID-19) Detected MANUEL (test code = 4*ABN*(12/14/21 3:10 Coronavirus (COVID-19) PM) MANUEL) [facility] CenterCARDIAC KNPFLVC2719-53-35 20:10:00 Test Item Value Reference Range Interpretation Comments HS Troponin I Baseline (test code = HS 340 Troponin I Baseline) [facility]2022-07-17 20:10:00 Test Item Value Reference Range Interpretation Comments Glucose Lvl (test code = Glucose Lvl) 60 70-99 [facility]2022-07-17 20:10:00 Test Item Value Reference Range Interpretation Comments BUN (test code = BUN) 35 7-22 [facility] KIJFV3700-01-10 20:10:00 Test Item Value Reference Range Interpretation Comments Creatinine Lvl (test code = Creatinine 6.10 0.50-1.40 Lvl) [facility] [id number] 20:10:00 Test Item Value Reference Range Interpretation Comments Sodium Lvl (test code = Sodium Lvl) 139 135-145 [facility]2022-07-17 20:10:00 Test Item Value Reference Range Interpretation Comments Potassium Lvl (test code = Potassium 3.1 3.5-5.1 Lvl) [facility]2022-07-17 20:10:00 Test Item Value Reference Range Interpretation Comments Chloride Lvl (test code = Chloride Lvl) 105 95-109 [place] 509392-07-17 20:10:00 Test Item Value Reference Range Interpretation Comments CO2 (test code = CO2) 28 24-32 [place] 509392-07-17 20:10:00 Test Item Value Reference Range Interpretation Comments Calcium Lvl (test code = Calcium Lvl) 8.1 8.5-10.5 [place] 509392-07-17 20:10:00 Test Item Value Reference Range Interpretation Comments Total Protein (test code = Total 5.8 6.4-8.4 Protein) [place] 509392-07-17 20:10:00 Test Item Value Reference Range Interpretation Comments Albumin Lvl (test code = Albumin Lvl) 2.6 3.5-5.0 [place] 509392-07-17 20:10:00 Test Item Value Reference Range Interpretation Comments ALT (test code = ALT) 74 See_Comment [Auto mated message] The system which ge nerated this result transmit swathi reference range : <=65. The reference range was not used to interpr et this result as deny l/abnormal. [facility] CenterPlayground Energy [id number] 20:10:00 Test Item Value Reference Range Interpretation Comments AST (test code = AST) 117 See_Comment [Auto mated message] The system which ge nerated this result transmit swathi reference range : <=37. The reference range was not used to interpr et this result as deny l/abnormal. [facility] CenterPlay[facility] Energy QTDGC7095-36-79 20:10:00 Test Item Value Reference Range Interpretation Comments Alk Phos (test code = Alk Phos) 241 39-136 [place] 509392-07-17 20:10:00 Test Item Value Reference Range Interpretation Comments Bili Total (test code = Bili Total) 0.8 0.2-1.3 [place] 509392-07-17 20:10:00 Test Item Value Reference Range Interpretation Comments AGAP (test code = AGAP) 9.1 10.0-20.0 [place] 509392-07-17 20:10:00 Test Item Value Reference Range Interpretation Comments B/C Ratio (test code = B/C Ratio) 6 1 6-25 [facility] CenterPlay[facility] HIGZR5837-59-15 20:10:00 Test Item Value Reference Range Interpretation Comments Globulin (test code = Globulin) 3.2 2.7-4.2 [facility] [id number] 20:10:00 Test Item Value Reference Range Interpretation Comments A/G Ratio (test code = A/G Ratio) 0.8 1 0.7-1.6 [facility] CenterPlay[facility] Energy [id number] 20:10:00 Test Item Value Reference Range Interpretation Comments eGFR (test code = eGFR) 9 [facility] GreenvilleRxlcvgdCNKFFSFJXJ9531-02-83 20:10:00 Test Item Value Reference Range Interpretation Comments WBC (test code = WBC) 4.3 3.7-10.4 [facility] GreenvilleVmdriwcGCTKCWUIJH2599-54-51 20:10:00 Test Item Value Reference Range Interpretation Comments RBC (test code = RBC) 2.17 4.70-6.10 [facility] GreenvilleFafvemzNHXYAXHJBS7718-27-42 20:10:00 Test Item Value Reference Range Interpretation Comments Hgb (test code = Hgb) 7.7 14.0-18.0 [facility] GreenvilleYxdseinKBWUUPNPQD3767-37-94 20:10:00 Test Item Value Reference Range Interpretation Comments Hct (test code = Hct) 22.9 42.0-54.0 [facility] GreenvilleRbfmqdnTGBDGDKARQ9290-57-72 20:10:00 Test Item Value Reference Range Interpretation Comments MCV (test code = MCV) 105.9 80.0-94.0 [facility] GreenvilleXoydkjbMFLDBLACQJ4571-82-08 20:10:00 Test Item Value Reference Range Interpretation Comments MCH (test code = MCH) 35.4 pg 27.0-31.0 [facility] GreenvilleAohpmyxWCGKWMLXGH4867-62-15 20:10:00 Test Item Value Reference Range Interpretation Comments MCHC (test code = MCHC) 33.4 32.0-36.0 [facility] GreenvilleEtejuwaOGQGRKTUTQ2920-41-57 20:10:00 Test Item Value Reference Range Interpretation Comments RDW (test code = RDW) 23.6 11.5-14.5 [facility] GreenvilleUkkglgsERAXVQWTHB1557-38-10 20:10:00 Test Item Value Reference Range Interpretation Comments Platelet (test code = Platelet) 146 133-450 [facility] GreenvilleUkqafylACEDBKPUTL2502-02-52 20:10:00 Test Item Value Reference Range Interpretation Comments MPV (test code = MPV) 8.0 7.4-10.4 [facility] GreenvilleQrhljdzSDINHFXZSE1255-21-92 20:10:00 Test Item Value Reference Range Interpretation Comments Plt Morph (test code = Normal (12/14/21 3:10 Plt Morph) PM) [facility] GreenvilleZsztqbsPNXVUDMDZY1247-39-07 20:10:00 Test Item Value Reference Range Interpretation Comments Segs (test code = Segs) 67.4 45.0-75.0 [facility] GreenvilleEdtwduaQYMPWGZKWR4863-88-56 20:10:00 Test Item Value Reference Range Interpretation Comments Lymphocytes (test code = Lymphocytes) 12.8 20.0-40.0 [place] 796562-07-17 20:10:00 Test Item Value Reference Range Interpretation Comments Monocytes (test code = Monocytes) 15.1 2.0-12.0 [place] 796562-07-17 20:10:00 Test Item Value Reference Range Interpretation Comments Eosinophils (test code = 4.1 See_Comment [A utomated message] The Eosinophils) system which ge nerated this result tra nsmitted reference range : <=4.0. The reference r samantha was not used to int erpret this result as normal/abnormal . [facility]villeOgtunsxHFGNNVPWSM3526-99-95 20:10:00 Test Item Value Reference Range Interpretation Comments Basophils (test code = 0.6 See_Comment [Aut omated message] The Basophils) system which ge nerated this result tra nsmitted reference range : <=1.0. The reference r samantha was not used to int erpret this result as normal/abnormal . [facility]villeEkdsnvvVUEHSLXDYK8197-87-03 20:10:00 Test Item Value Reference Range Interpretation Comments Neutrophils # (test code = Neutrophils 2.9 1.5-8.1 #) [place] 796562-07-17 20:10:00 Test Item Value Reference Range Interpretation Comments Lymphocytes # (test code = Lymphocytes 0.5 1.0-5.5 #) [place] 796562-07-17 20:10:00 Test Item Value Reference Range Interpretation Comments Monocytes # (test code 0.6 See_Comment [Aut omated message] The = Monocytes #) system which generated this result tra nsmitted reference range : <=0.8. The reference r samantha was not used to int erpret this result as normal/abnormal . [facility] SurgeryEbblfvxTLSRIITALB0745-28-07 20:10:00 Test Item Value Reference Range Interpretation Comments Eosinophils # (test code 0.2 See_Comment [A utomated message] The = Eosinophils #) system whic h generated this result tra nsmitted reference range : <=0.5. The reference r samantha was not used to int erpret this result as normal/abnormal . [facility] SurgeryVcvauvpOJYSPVJGAB0041-94-93 20:10:00 Test Item Value Reference Range Interpretation Comments Anisocyte (test code = 1+ *ABN*(12/14/21 Anisocyte) 3:10 PM) [facility] SurgeryNoqsvnyJAZJEHVUEA9660-55-95 20:10:00 Test Item Value Reference Range Interpretation Comments Macrocyte (test code = 1+ *ABN*(12/14/21 Macrocyte) 3:10 PM) [facility] CenterCowqewjDTOIQJEHCN2964-21-55 20:10:00 Test Item Value Reference Range Interpretation Comments Coronavirus (COVID-19) Detected MANUEL (test code = 4*ABN*(12/14/21 3:10 Coronavirus (COVID-19) PM) MANUEL) [facility] CenterCARDIAC [id number] 20:10:00 Test Item Value Reference Range Interpretation Comments HS Troponin I Baseline (test code = HS 340 Troponin I Baseline) [facility] CenterPlay[facility] [id number] 20:10:00 Test Item Value Reference Range Interpretation Comments Glucose Lvl (test code = Glucose Lvl) 60 70-99 [facility] [id number] 20:10:00 Test Item Value Reference Range Interpretation Comments BUN (test code = BUN) 35 7-22 [facility] [id number] 20:10:00 Test Item Value Reference Range Interpretation Comments Creatinine Lvl (test code = Creatinine 6.10 0.50-1.40 Lvl) [facility] [id number] 20:10:00 Test Item Value Reference Range Interpretation Comments Sodium Lvl (test code = Sodium Lvl) 139 135-145 [facility] Center[facility] [id number] 20:10:00 Test Item Value Reference Range Interpretation Comments Potassium Lvl (test code = Potassium 3.1 3.5-5.1 Lvl) [facility] [id number] 20:10:00 Test Item Value Reference Range Interpretation Comments Chloride Lvl (test code = Chloride Lvl) 105 95-[address] [facility] [employer] [id number] 20:10:00 Test Item Value Reference Range Interpretation Comments CO2 (test code = CO2) 28 24-32 [facility] [id number] 20:10:00 Test Item Value Reference Range Interpretation Comments Calcium Lvl (test code = Calcium Lvl) 8.1 8.5-10.5 [facility] [id number] 20:10:00 Test Item Value Reference Range Interpretation Comments Total Protein (test code = Total 5.8 6.4-8.4 Protein) [facility] [id number] 20:10:00 Test Item Value Reference Range Interpretation Comments Albumin Lvl (test code = Albumin Lvl) 2.6 3.5-5.[address] [facility] [employer] [id number] 20:10:00 Test Item Value Reference Range Interpretation Comments ALT (test code = ALT) 74 See_Comment [Auto mated message] The system which ge nerated this result transmit swathi reference range : <=65. The reference range was not used to interpr et this result as deny l/abnormal. [facility] [employer] [id number] 20:10:00 Test Item Value Reference Range Interpretation Comments AST (test code = AST) 117 See_Comment [Auto mated message] The system which ge nerated this result transmit swathi reference range : <=37. The reference range was not used to interpr et this result as deny l/abnormal. [facility] [employer] [id number] 20:10:00 Test Item Value Reference Range Interpretation Comments Alk Phos (test code = Alk Phos) 241 39-136 [facility] [id number] 20:10:00 Test Item Value Reference Range Interpretation Comments Bili Total (test code = Bili Total) 0.8 0.2-1.3 [facility] HospitalFlynnCARDIAC [id number] 20:10:00 Test Item Value Reference Range Interpretation Comments HS Troponin I Baseline (test code = HS 340 Troponin I Baseline) [facility] [id number] 20:10:00 Test Item Value Reference Range Interpretation Comments Glucose Lvl (test code = Glucose Lvl) 60 70-99 [place] 509392-07-17 20:10:00 Test Item Value Reference Range Interpretation Comments BUN (test code = BUN) 35 7-22 [place] 509392-07-17 20:10:00 Test Item Value Reference Range Interpretation Comments Creatinine Lvl (test code = Creatinine 6.10 0.50-1.40 Lvl) [place] 509392-07-17 20:10:00 Test Item Value Reference Range Interpretation Comments Sodium Lvl (test code = Sodium Lvl) 139 135-145 [place] 509392-07-17 20:10:00 Test Item Value Reference Range Interpretation Comments Potassium Lvl (test code = Potassium 3.1 3.5-5.1 Lvl) [place] 509392-07-17 20:10:00 Test Item Value Reference Range Interpretation Comments AGAP (test code = AGAP) 9.1 10.0-20.0 [place] 509392-07-17 20:10:00 Test Item Value Reference Range Interpretation Comments Chloride Lvl (test code = Chloride Lvl) 105 95-109 [place] 509392-07-17 20:10:00 Test Item Value Reference Range Interpretation Comments CO2 (test code = CO2) 28 24-32 [place] 509392-07-17 20:10:00 Test Item Value Reference Range Interpretation Comments Calcium Lvl (test code = Calcium Lvl) 8.1 8.5-10.5 [place] 509392-07-17 20:10:00 Test Item Value Reference Range Interpretation Comments Total Protein (test code = Total 5.8 6.4-8.4 Protein) [place] 509392-07-17 20:10:00 Test Item Value Reference Range Interpretation Comments Albumin Lvl (test code = Albumin Lvl) 2.6 3.5-5.0 [place] 509392-07-17 20:10:00 Test Item Value Reference Range Interpretation Comments ALT (test code = ALT) 74 See_Comment [Auto mated message] The system which ge nerated this result transmit swathi reference range : <=65. The reference range was not used to interpr et this result as deny l/abnormal. [place] 509392-07-17 20:10:00 Test Item Value Reference Range Interpretation Comments AST (test code = AST) 117 See_Comment [Auto mated message] The system which ge nerated this result transmit swathi reference range : <=37. The reference range was not used to interpr et this result as deny l/abnormal. [facility] CenterPlay[facility] [id number] 20:10:00 Test Item Value Reference Range Interpretation Comments Alk Phos (test code = Alk Phos) 241 39-136 [facility]2022-07-17 20:10:00 Test Item Value Reference Range Interpretation Comments Bili Total (test code = Bili Total) 0.8 0.2-1.3 [facility]2022-07-17 20:10:00 Test Item Value Reference Range Interpretation Comments AGAP (test code = AGAP) 9.1 10.0-20.0 [facility]2022-07-17 20:10:00 Test Item Value Reference Range Interpretation Comments B/C Ratio (test code = B/C Ratio) 6 1 6-25 [facility]2022-07-17 20:10:00 Test Item Value Reference Range Interpretation Comments B/C Ratio (test code = B/C Ratio) 6 1 6-25 [facility] CenterPlay[facility] [id number] 20:10:00 Test Item Value Reference Range Interpretation Comments Globulin (test code = Globulin) 3.2 2.7-4.2 [facility]2022-07-17 20:10:00 Test Item Value Reference Range Interpretation Comments A/G Ratio (test code = A/G Ratio) 0.8 1 0.7-1.6 [facility]2022-07-17 20:10:00 Test Item Value Reference Range Interpretation Comments eGFR (test code = eGFR) 9 [facility]villeVhvnjgsPNIBPJWORN3133-47-54 20:10:00 Test Item Value Reference Range Interpretation Comments WBC (test code = WBC) 4.3 3.7-10.4 [facility] GreenvilleFotipzcRXVNHQXYUR7211-32-36 20:10:00 Test Item Value Reference Range Interpretation Comments RBC (test code = RBC) 2.17 4.70-6.10 [facility] GreenvilleLdycvapCQNMMRWICP5178-25-17 20:10:00 Test Item Value Reference Range Interpretation Comments Hgb (test code = Hgb) 7.7 14.0-18.0 [place] 796562-07-17 20:10:00 Test Item Value Reference Range Interpretation Comments Hct (test code = Hct) 22.9 42.0-54.0 [facility] GreenvilleCbcvfleSIMAPNMMXG0878-02-86 20:10:00 Test Item Value Reference Range Interpretation Comments MCV (test code = MCV) 105.9 80.0-94.0 [facility] GreenvilleYqtbzwpQVVKKFHOHU5427-81-59 20:10:00 Test Item Value Reference Range Interpretation Comments MCH (test code = MCH) 35.4 pg 27.0-31.0 [facility]2022-07-17 20:10:00 Test Item Value Reference Range Interpretation Comments Globulin (test code = Globulin) 3.2 2.7-4.2 [facility] GreenvilleOhxkxxmNPBEZUNYQO1388-98-46 20:10:00 Test Item Value Reference Range Interpretation Comments MCHC (test code = MCHC) 33.4 32.0-36.0 [facility] GreenvilleXhplzxoIIEMAVFVZJ3622-68-08 20:10:00 Test Item Value Reference Range Interpretation Comments RDW (test code = RDW) 23.6 11.5-14.5 [facility] GreenvilleZnpidkrQQOXKTLPZT4408-77-86 20:10:00 Test Item Value Reference Range Interpretation Comments Platelet (test code = Platelet) 146 133-450 [facility] GreenvilleAewggnoSQUIUAADEM3298-67-00 20:10:00 Test Item Value Reference Range Interpretation Comments MPV (test code = MPV) 8.0 7.4-10.4 [facility] GreenvilleLyihwihPDHUKHGEYL5431-93-68 20:10:00 Test Item Value Reference Range Interpretation Comments Plt Morph (test code = Normal (12/14/21 3:10 Plt Morph) PM) [facility] GreenvilleOklntaqTXLNWFLKQA3420-23-49 20:10:00 Test Item Value Reference Range Interpretation Comments Segs (test code = Segs) 67.4 45.0-75.0 [place] 796562-07-17 20:10:00 Test Item Value Reference Range Interpretation Comments Lymphocytes (test code = Lymphocytes) 12.8 20.0-40.0 [place] 796562-07-17 20:10:00 Test Item Value Reference Range Interpretation Comments Monocytes (test code = Monocytes) 15.1 2.0-12.0 [facility] GreenvilleGwrilgsFMEXDGUOSL2505-52-76 20:10:00 Test Item Value Reference Range Interpretation Comments Eosinophils (test code = 4.1 See_Comment [A utomated message] The Eosinophils) system which ge nerated this result tra nsmitted reference range : <=4.0. The reference r samantha was not used to int erpret this result as normal/abnormal . [place] 796562-07-17 20:10:00 Test Item Value Reference Range Interpretation Comments Basophils (test code = 0.6 See_Comment [Aut omated message] The Basophils) system which ge nerated this result tra nsmitted reference range : <=1.0. The reference r samantha was not used to int erpret this result as normal/abnormal . [facility]2022-07-17 20:10:00 Test Item Value Reference Range Interpretation Comments A/G Ratio (test code = A/G Ratio) 0.8 1 0.7-1.6 [place] 796562-07-17 20:10:00 Test Item Value Reference Range Interpretation Comments Neutrophils # (test code = Neutrophils 2.9 1.5-8.1 #) [place] 796562-07-17 20:10:00 Test Item Value Reference Range Interpretation Comments Lymphocytes # (test code = Lymphocytes 0.5 1.0-5.5 #) [place] 796562-07-17 20:10:00 Test Item Value Reference Range Interpretation Comments Monocytes # (test code 0.6 See_Comment [Aut omated message] The = Monocytes #) system which generated this result tra nsmitted reference range : <=0.8. The reference r samantha was not used to int erpret this result as normal/abnormal . [place] 796562-07-17 20:10:00 Test Item Value Reference Range Interpretation Comments Eosinophils # (test code 0.2 See_Comment [A utomated message] The = Eosinophils #) system whic h generated this result tra nsmitted reference range : <=0.5. The reference r samantha was not used to int erpret this result as normal/abnormal . [place] [address]-07-17 20:10:00 Test Item Value Reference Range Interpretation Comments Anisocyte (test code = 1+ *ABN*(12/14/21 Anisocyte) 3:10 PM) [place] 796562-07-17 20:10:00 Test Item Value Reference Range Interpretation Comments Macrocyte (test code = 1+ *ABN*(12/14/21 Macrocyte) 3:10 PM) [facility] CenterHznmjzzNUZUTUADJI5815-03-62 20:10:00 Test Item Value Reference Range Interpretation Comments Coronavirus (COVID-19) Detected MANUEL (test code = 4*ABN*(12/14/21 3:10 Coronavirus (COVID-19) PM) MANUEL) [facility] CenterCHEM [id number] 20:10:00 Test Item Value Reference Range Interpretation Comments eGFR (test code = eGFR) 9 [facility] CenterCciirjeOBODEVGFZU6638-37-84 20:10:00 Test Item Value Reference Range Interpretation Comments WBC (test code = WBC) 4.3 3.7-10.4 [facility]villeSsofmyjZMYWLVQKWA9718-76-13 20:10:00 Test Item Value Reference Range Interpretation Comments RBC (test code = RBC) 2.17 4.70-6.10 [facility] SurgerySmsqpanQUJRWUQXKF9781-80-05 20:10:00 Test Item Value Reference Range Interpretation Comments Hgb (test code = Hgb) 7.7 14.0-18.0 [facility] SurgeryAzdaehtTVWUJYDXBD6556-68-74 20:10:00 Test Item Value Reference Range Interpretation Comments Hct (test code = Hct) 22.9 42.0-54.0 [facility] SurgeryYqfwddeLRMWAVJETD1771-45-53 20:10:00 Test Item Value Reference Range Interpretation Comments MCV (test code = MCV) 105.9 80.0-94.0 [facility] SurgeryCexzhiaZUYWZFGXMJ5147-25-16 20:10:00 Test Item Value Reference Range Interpretation Comments MCH (test code = MCH) 35.4 pg 27.0-31.0 [facility] CenterXqjifbvCJAQDWBWBE3023-76-52 20:10:00 Test Item Value Reference Range Interpretation Comments MCHC (test code = MCHC) 33.4 32.0-36.0 [facility] CenterSdbryjeBHRUWOMOUS4177-12-01 20:10:00 Test Item Value Reference Range Interpretation Comments RDW (test code = RDW) 23.6 11.5-14.5 [facility] SurgeryMvxzyyySVSZYBLRCS5608-44-75 20:10:00 Test Item Value Reference Range Interpretation Comments Platelet (test code = Platelet) 146 133-450 [facility] SurgeryDgjmxjeBBTNDOINWX1549-92-45 20:10:00 Test Item Value Reference Range Interpretation Comments MPV (test code = MPV) 8.0 7.4-10.4 [facility] GreenvilleCypyrgaONZMFCDYSD9498-33-15 20:10:00 Test Item Value Reference Range Interpretation Comments Plt Morph (test code = Normal (12/14/21 3:10 Plt Morph) PM) [facility] GreenvilleWeqkuaaWOMYJFWVLV6338-85-25 20:10:00 Test Item Value Reference Range Interpretation Comments Segs (test code = Segs) 67.4 45.0-75.0 [place] 796562-07-17 20:10:00 Test Item Value Reference Range Interpretation Comments Lymphocytes (test code = Lymphocytes) 12.8 20.0-40.0 [place] 796562-07-17 20:10:00 Test Item Value Reference Range Interpretation Comments Monocytes (test code = Monocytes) 15.1 2.0-12.0 [facility] GreenvilleUeqethiNLTPZRLLBY5265-20-37 20:10:00 Test Item Value Reference Range Interpretation Comments Eosinophils (test code = 4.1 See_Comment [A utomated message] The Eosinophils) system which ge nerated this result tra nsmitted reference range : <=4.0. The reference r samantha was not used to int erpret this result as normal/abnormal . [facility] GreenvilleFvstluiDQCTJFWNHH2524-09-30 20:10:00 Test Item Value Reference Range Interpretation Comments Basophils (test code = 0.6 See_Comment [Aut omated message] The Basophils) system which ge nerated this result tra nsmitted reference range : <=1.0. The reference r samantha was not used to int erpret this result as normal/abnormal . [facility] GreenvilleCefuyflQMKQEVHOMK3058-32-14 20:10:00 Test Item Value Reference Range Interpretation Comments Neutrophils # (test code = Neutrophils 2.9 1.5-8.1 #) [place] 796562-07-17 20:10:00 Test Item Value Reference Range Interpretation Comments Lymphocytes # (test code = Lymphocytes 0.5 1.0-5.5 #) [place] 796562-07-17 20:10:00 Test Item Value Reference Range Interpretation Comments Monocytes # (test code 0.6 See_Comment [Aut omated message] The = Monocytes #) system which generated this result tra nsmitted reference range : <=0.8. The reference r samantha was not used to int erpret this result as normal/abnormal . [facility] GreenvilleMqchdptKSZWNOUHKG7454-28-08 20:10:00 Test Item Value Reference Range Interpretation Comments Eosinophils # (test code 0.2 See_Comment [A utomated message] The = Eosinophils #) system whic h generated this result tra nsmitted reference range : <=0.5. The reference r samantha was not used to int erpret this result as normal/abnormal . [facility] SurgeryEbpbtsbGRXSSAZVDL1308-98-35 20:10:00 Test Item Value Reference Range Interpretation Comments Anisocyte (test code = 1+ *ABN*(12/14/21 Anisocyte) 3:10 PM) [facility] SurgeryJgjfdvtRGPSTBCWVF5011-19-20 20:10:00 Test Item Value Reference Range Interpretation Comments Macrocyte (test code = 1+ *ABN*(12/14/21 Macrocyte) 3:10 PM) [facility] CenterCjozwmbKTIWOGADSE9034-91-48 20:10:00 Test Item Value Reference Range Interpretation Comments Coronavirus (COVID-19) Detected MANUEL (test code = 4*ABN*(12/14/21 3:10 Coronavirus (COVID-19) PM) MANUEL) [facility] CenterCARDIAC CPVLYMI8429-80-19 20:10:00 Test Item Value Reference Range Interpretation Comments HS Troponin I Baseline (test code = HS 340 Troponin I Baseline) [facility]2022-07-17 20:10:00 Test Item Value Reference Range Interpretation Comments Glucose Lvl (test code = Glucose Lvl) 60 70-99 [facility]2022-07-17 20:10:00 Test Item Value Reference Range Interpretation Comments BUN (test code = BUN) 35 7-22 [facility]2022-07-17 20:10:00 Test Item Value Reference Range Interpretation Comments Creatinine Lvl (test code = Creatinine 6.10 0.50-1.40 Lvl) [facility]2022-07-17 20:10:00 Test Item Value Reference Range Interpretation Comments Sodium Lvl (test code = Sodium Lvl) 139 135-145 [facility]2022-07-17 20:10:00 Test Item Value Reference Range Interpretation Comments Potassium Lvl (test code = Potassium 3.1 3.5-5.1 Lvl) [facility] HospitalFlynnUNC HEALTH SOUTHEASTERNXMXZP2076-37-32 20:10:00 Test Item Value Reference Range Interpretation Comments Chloride Lvl (test code = Chloride Lvl) 105 95-109 [place] 509392-07-17 20:10:00 Test Item Value Reference Range Interpretation Comments CO2 (test code = CO2) 28 24-32 [place] 509392-07-17 20:10:00 Test Item Value Reference Range Interpretation Comments Calcium Lvl (test code = Calcium Lvl) 8.1 8.5-10.5 [place] 509392-07-17 20:10:00 Test Item Value Reference Range Interpretation Comments Total Protein (test code = Total 5.8 6.4-8.4 Protein) [place] 509392-07-17 20:10:00 Test Item Value Reference Range Interpretation Comments Albumin Lvl (test code = Albumin Lvl) 2.6 3.5-5.0 [place] 509392-07-17 20:10:00 Test Item Value Reference Range Interpretation Comments ALT (test code = ALT) 74 See_Comment [Auto mated message] The system which ge nerated this result transmit swathi reference range : <=65. The reference range was not used to interpr et this result as deny l/abnormal. [facility] CenterPlay[facility] Energy [id number] 20:10:00 Test Item Value Reference Range Interpretation Comments AST (test code = AST) 117 See_Comment [Auto mated message] The system which ge nerated this result transmit swathi reference range : <=37. The reference range was not used to interpr et this result as deny l/abnormal. [facility] CenterPlay[facility] [id number] 20:10:00 Test Item Value Reference Range Interpretation Comments Alk Phos (test code = Alk Phos) 241 39-136 [facility] CenterPlay[facility] [id number] 20:10:00 Test Item Value Reference Range Interpretation Comments Bili Total (test code = Bili Total) 0.8 0.2-1.3 [place] 509392-07-17 20:10:00 Test Item Value Reference Range Interpretation Comments AGAP (test code = AGAP) 9.1 10.0-20.0 [facility] Center[facility] KNJWV7963-04-93 20:10:00 Test Item Value Reference Range Interpretation Comments B/C Ratio (test code = B/C Ratio) 6 1 6-25 [facility]2022-07-17 20:10:00 Test Item Value Reference Range Interpretation Comments Globulin (test code = Globulin) 3.2 2.7-4.2 [place] 509392-07-17 20:10:00 Test Item Value Reference Range Interpretation Comments A/G Ratio (test code = A/G Ratio) 0.8 1 0.7-1.6 [facility]2022-07-17 20:10:00 Test Item Value Reference Range Interpretation Comments eGFR (test code = eGFR) 9 [facility] GreenvilleQhbrmnyBQNEVALGTA4315-10-60 20:10:00 Test Item Value Reference Range Interpretation Comments WBC (test code = WBC) 4.3 3.7-10.4 [place] 796562-07-17 20:10:00 Test Item Value Reference Range Interpretation Comments RBC (test code = RBC) 2.17 4.70-6.10 [facility] GreenvilleEukhapfDQZMLDXKHL4216-81-66 20:10:00 Test Item Value Reference Range Interpretation Comments Hgb (test code = Hgb) 7.7 14.0-18.0 [place] [address]-07-17 20:10:00 Test Item Value Reference Range Interpretation Comments Hct (test code = Hct) 22.9 42.0-54.0 [place] 796562-07-17 20:10:00 Test Item Value Reference Range Interpretation Comments MCV (test code = MCV) 105.9 80.0-94.0 [place] [address]-07-17 20:10:00 Test Item Value Reference Range Interpretation Comments MCH (test code = MCH) 35.4 pg 27.0-31.0 [place] 796562-07-17 20:10:00 Test Item Value Reference Range Interpretation Comments MCHC (test code = MCHC) 33.4 32.0-36.0 [place] 796562-07-17 20:10:00 Test Item Value Reference Range Interpretation Comments RDW (test code = RDW) 23.6 11.5-14.5 [place] 796562-07-17 20:10:00 Test Item Value Reference Range Interpretation Comments Platelet (test code = Platelet) 146 133-450 [place] 796562-07-17 20:10:00 Test Item Value Reference Range Interpretation Comments MPV (test code = MPV) 8.0 7.4-10.4 [place] 796562-07-17 20:10:00 Test Item Value Reference Range Interpretation Comments Plt Morph (test code = Normal (12/14/21 3:10 Plt Morph) PM) [place] 796562-07-17 20:10:00 Test Item Value Reference Range Interpretation Comments Segs (test code = Segs) 67.4 45.0-75.0 [place] 796562-07-17 20:10:00 Test Item Value Reference Range Interpretation Comments Lymphocytes (test code = Lymphocytes) 12.8 20.0-40.0 [place]6562-07-17 20:10:00 Test Item Value Reference Range Interpretation Comments Monocytes (test code = Monocytes) 15.1 2.0-12.0 [place] 796562-07-17 20:10:00 Test Item Value Reference Range Interpretation Comments Eosinophils (test code = 4.1 See_Comment [A utomated message] The Eosinophils) system which ge nerated this result tra nsmitted reference range : <=4.0. The reference r samantha was not used to int erpret this result as normal/abnormal . [place] 796562-07-17 20:10:00 Test Item Value Reference Range Interpretation Comments Basophils (test code = 0.6 See_Comment [Aut omated message] The Basophils) system which ge nerated this result tra nsmitted reference range : <=1.0. The reference r samantha was not used to int erpret this result as normal/abnormal . [place] 796562-07-17 20:10:00 Test Item Value Reference Range Interpretation Comments Neutrophils # (test code = Neutrophils 2.9 1.5-8.1 #) [place] 796562-07-17 20:10:00 Test Item Value Reference Range Interpretation Comments Lymphocytes # (test code = Lymphocytes 0.5 1.0-5.5 #) [place] 796562-07-17 20:10:00 Test Item Value Reference Range Interpretation Comments Monocytes # (test code 0.6 See_Comment [Aut omated message] The = Monocytes #) system which generated this result tra nsmitted reference range : <=0.8. The reference r samantha was not used to int erpret this result as normal/abnormal . [facility]villeQduelvnSFHFIJLRLU9622-23-38 20:10:00 Test Item Value Reference Range Interpretation Comments Eosinophils # (test code 0.2 See_Comment [A utomated message] The = Eosinophils #) system whic h generated this result tra nsmitted reference range : <=0.5. The reference r samantha was not used to int erpret this result as normal/abnormal . [facility] GreenvilleJilvofbJSDPUXLUBP4451-48-59 20:10:00 Test Item Value Reference Range Interpretation Comments Anisocyte (test code = 1+ *ABN*(12/14/21 Anisocyte) 3:10 PM) [facility] GreenvilleUocurvdCOZJKDVWJP5513-95-22 20:10:00 Test Item Value Reference Range Interpretation Comments Macrocyte (test code = 1+ *ABN*(12/14/21 Macrocyte) 3:10 PM) [facility] CenterJfahtwzCSNHGXETII7409-37-69 20:10:00 Test Item Value Reference Range Interpretation Comments Coronavirus (COVID-19) Detected MANUEL (test code = 4*ABN*(12/14/21 3:10 Coronavirus (COVID-19) PM) MANUEL) [facility] CenterCARDI[facility] IOBWGSX6186-57-79 20:10:00 Test Item Value Reference Range Interpretation Comments HS Troponin I Baseline (test code = HS 340 Troponin I Baseline) [facility] CenterPlay[facility] [id number] 20:10:00 Test Item Value Reference Range Interpretation Comments Glucose Lvl (test code = Glucose Lvl) 60 70-99 [facility] IUGRP7281-11-97 20:10:00 Test Item Value Reference Range Interpretation Comments BUN (test code = BUN) 35 7-22 [facility] [id number] 20:10:00 Test Item Value Reference Range Interpretation Comments Creatinine Lvl (test code = Creatinine 6.10 0.50-1.40 Lvl) [facility]2022-07-17 20:10:00 Test Item Value Reference Range Interpretation Comments Sodium Lvl (test code = Sodium Lvl) 139 135-145 [facility] Center[facility] [id number] 20:10:00 Test Item Value Reference Range Interpretation Comments Potassium Lvl (test code = Potassium 3.1 3.5-5.1 Lvl) [place] 509392-07-17 20:10:00 Test Item Value Reference Range Interpretation Comments Chloride Lvl (test code = Chloride Lvl) 105 95-109 [place] 509392-07-17 20:10:00 Test Item Value Reference Range Interpretation Comments CO2 (test code = CO2) 28 24-32 [place] 509392-07-17 20:10:00 Test Item Value Reference Range Interpretation Comments Calcium Lvl (test code = Calcium Lvl) 8.1 8.5-10.5 [facility] [address]BZKQO0040-64-48 20:10:00 Test Item Value Reference Range Interpretation Comments Total Protein (test code = Total 5.8 6.4-8.4 Protein) [place] 509392-07-17 20:10:00 Test Item Value Reference Range Interpretation Comments Albumin Lvl (test code = Albumin Lvl) 2.6 3.5-5.0 [place] 509392-07-17 20:10:00 Test Item Value Reference Range Interpretation Comments ALT (test code = ALT) 74 See_Comment [Auto mated message] The system which ge nerated this result transmit swathi reference range : <=65. The reference range was not used to interpr et this result as deny l/abnormal. [facility] CenterPlay[facility] [id number] 20:10:00 Test Item Value Reference Range Interpretation Comments AST (test code = AST) 117 See_Comment [Auto mated message] The system which ge nerated this result transmit swathi reference range : <=37. The reference range was not used to interpr et this result as deny l/abnormal. [place] 509392-07-17 20:10:00 Test Item Value Reference Range Interpretation Comments Alk Phos (test code = Alk Phos) 241 39-136 [facility] Center[facility] [id number] 20:10:00 Test Item Value Reference Range Interpretation Comments Bili Total (test code = Bili Total) 0.8 0.2-1.3 [place] 509392-07-17 20:10:00 Test Item Value Reference Range Interpretation Comments AGAP (test code = AGAP) 9.1 10.0-20.0 [facility]2022-07-17 20:10:00 Test Item Value Reference Range Interpretation Comments B/C Ratio (test code = B/C Ratio) 6 1 6-25 [place] 509392-07-17 20:10:00 Test Item Value Reference Range Interpretation Comments Globulin (test code = Globulin) 3.2 2.7-4.2 [place] 509392-07-17 20:10:00 Test Item Value Reference Range Interpretation Comments A/G Ratio (test code = A/G Ratio) 0.8 1 0.7-1.6 [place] 509392-07-17 20:10:00 Test Item Value Reference Range Interpretation Comments eGFR (test code = eGFR) 9 [place] 796562-07-17 20:10:00 Test Item Value Reference Range Interpretation Comments WBC (test code = WBC) 4.3 3.7-10.4 [place] 796562-07-17 20:10:00 Test Item Value Reference Range Interpretation Comments RBC (test code = RBC) 2.17 4.70-6.10 [place] 796562-07-17 20:10:00 Test Item Value Reference Range Interpretation Comments Hgb (test code = Hgb) 7.7 14.0-18.0 [place] 796562-07-17 20:10:00 Test Item Value Reference Range Interpretation Comments Hct (test code = Hct) 22.9 42.0-54.0 [place] 796562-07-17 20:10:00 Test Item Value Reference Range Interpretation Comments MCV (test code = MCV) 105.9 80.0-94.0 [place] [address]-07-17 20:10:00 Test Item Value Reference Range Interpretation Comments MCH (test code = MCH) 35.4 pg 27.0-31.0 [place] 796562-07-17 20:10:00 Test Item Value Reference Range Interpretation Comments MCHC (test code = MCHC) 33.4 32.0-36.0 [place] 796562-07-17 20:10:00 Test Item Value Reference Range Interpretation Comments RDW (test code = RDW) 23.6 11.5-14.5 [place] 796562-07-17 20:10:00 Test Item Value Reference Range Interpretation Comments Platelet (test code = Platelet) 146 133-450 [facility] GreenvilleRideolhCLANYMTLKP8289-89-25 20:10:00 Test Item Value Reference Range Interpretation Comments MPV (test code = MPV) 8.0 7.4-10.4 [place] 796562-07-17 20:10:00 Test Item Value Reference Range Interpretation Comments Plt Morph (test code = Normal (12/14/21 3:10 Plt Morph) PM) [facility] GreenvilleQzmtqkhXEICWMXDPH8431-86-49 20:10:00 Test Item Value Reference Range Interpretation Comments Segs (test code = Segs) 67.4 45.0-75.0 [place] 796562-07-17 20:10:00 Test Item Value Reference Range Interpretation Comments Lymphocytes (test code = Lymphocytes) 12.8 20.0-40.0 [place] 796562-07-17 20:10:00 Test Item Value Reference Range Interpretation Comments Monocytes (test code = Monocytes) 15.1 2.0-12.0 [place] 796562-07-17 20:10:00 Test Item Value Reference Range Interpretation Comments Eosinophils (test code = 4.1 See_Comment [A utomated message] The Eosinophils) system which ge nerated this result tra nsmitted reference range : <=4.0. The reference r samantha was not used to int erpret this result as normal/abnormal . [facility] GreenvilleBrwrirpYYPTEIHOZS5297-15-91 20:10:00 Test Item Value Reference Range Interpretation Comments Basophils (test code = 0.6 See_Comment [Aut omated message] The Basophils) system which ge nerated this result tra nsmitted reference range : <=1.0. The reference r samantha was not used to int erpret this result as normal/abnormal . [facility] GreenvilleUmcfrenHALORCFDRM2098-54-43 20:10:00 Test Item Value Reference Range Interpretation Comments Neutrophils # (test code = Neutrophils 2.9 1.5-8.1 #) [place] 796562-07-17 20:10:00 Test Item Value Reference Range Interpretation Comments Lymphocytes # (test code = Lymphocytes 0.5 1.0-5.5 #) [place] 796562-07-17 20:10:00 Test Item Value Reference Range Interpretation Comments Monocytes # (test code 0.6 See_Comment [Aut omated message] The = Monocytes #) system which generated this result tra nsmitted reference range : <=0.8. The reference r samantha was not used to int erpret this result as normal/abnormal . [facility] SurgeryFkpnkalFTEMAUHTXL3174-47-72 20:10:00 Test Item Value Reference Range Interpretation Comments Eosinophils # (test code 0.2 See_Comment [A utomated message] The = Eosinophils #) system whic h generated this result tra nsmitted reference range : <=0.5. The reference r samantha was not used to int erpret this result as normal/abnormal . [facility] SurgeryYtishflKHXQJFPNEQ5501-65-24 20:10:00 Test Item Value Reference Range Interpretation Comments Anisocyte (test code = 1+ *ABN*(12/14/21 Anisocyte) 3:10 PM) [facility] SurgeryRzkjtrkXZXJIGSUQS8896-14-94 20:10:00 Test Item Value Reference Range Interpretation Comments Macrocyte (test code = 1+ *ABN*(12/14/21 Macrocyte) 3:10 PM) [facility] CenterCjapfwbHBCJEQVSAG4435-52-09 20:10:00 Test Item Value Reference Range Interpretation Comments Coronavirus (COVID-19) Detected MANUEL (test code = 4*ABN*(12/14/21 3:10 Coronavirus (COVID-19) PM) MANUEL) [facility] CenterCARDIAC [id number] 20:10:00 Test Item Value Reference Range Interpretation Comments HS Troponin I Baseline (test code = HS 340 Troponin I Baseline) [facility] CenterPlay[facility] [id number] 20:10:00 Test Item Value Reference Range Interpretation Comments Glucose Lvl (test code = Glucose Lvl) 60 70-99 [facility] HospitalS[facility] SPPMT5952-02-37 20:10:00 Test Item Value Reference Range Interpretation Comments BUN (test code = BUN) 35 7-22 [facility] HospitalS[facility] IHCLQ8975-96-40 20:10:00 Test Item Value Reference Range Interpretation Comments Creatinine Lvl (test code = Creatinine 6.10 0.50-1.40 Lvl) [facility] Center[facility] [id number] 20:10:00 Test Item Value Reference Range Interpretation Comments Sodium Lvl (test code = Sodium Lvl) 139 135-145 [facility] CDVBU4515-82-55 20:10:00 Test Item Value Reference Range Interpretation Comments Potassium Lvl (test code = Potassium 3.1 3.5-5.1 Lvl) [place] 509392-07-17 20:10:00 Test Item Value Reference Range Interpretation Comments Chloride Lvl (test code = Chloride Lvl) 105 95-109 [place] 509392-07-17 20:10:00 Test Item Value Reference Range Interpretation Comments CO2 (test code = CO2) 28 24-32 [place] 509392-07-17 20:10:00 Test Item Value Reference Range Interpretation Comments Calcium Lvl (test code = Calcium Lvl) 8.1 8.5-10.5 [place] 509392-07-17 20:10:00 Test Item Value Reference Range Interpretation Comments Total Protein (test code = Total 5.8 6.4-8.4 Protein) [place] 509392-07-17 20:10:00 Test Item Value Reference Range Interpretation Comments Albumin Lvl (test code = Albumin Lvl) 2.6 3.5-5.0 [place] 509392-07-17 20:10:00 Test Item Value Reference Range Interpretation Comments ALT (test code = ALT) 74 See_Comment [Auto mated message] The system which ge nerated this result transmit swathi reference range : <=65. The reference range was not used to interpr et this result as deny l/abnormal. [place] 509392-07-17 20:10:00 Test Item Value Reference Range Interpretation Comments AST (test code = AST) 117 See_Comment [Auto mated message] The system which ge nerated this result transmit swathi reference range : <=37. The reference range was not used to interpr et this result as deny l/abnormal. [facility] CenterPlay[facility] [id number] 20:10:00 Test Item Value Reference Range Interpretation Comments Alk Phos (test code = Alk Phos) 241 39-136 [place] 509392-07-17 20:10:00 Test Item Value Reference Range Interpretation Comments Bili Total (test code = Bili Total) 0.8 0.2-1.3 [place] 509392-07-17 20:10:00 Test Item Value Reference Range Interpretation Comments AGAP (test code = AGAP) 9.1 10.0-20.0 [place] 509392-07-17 20:10:00 Test Item Value Reference Range Interpretation Comments B/C Ratio (test code = B/C Ratio) 6 1 6-25 [place] 509392-07-17 20:10:00 Test Item Value Reference Range Interpretation Comments Globulin (test code = Globulin) 3.2 2.7-4.2 [place] 509392-07-17 20:10:00 Test Item Value Reference Range Interpretation Comments A/G Ratio (test code = A/G Ratio) 0.8 1 0.7-1.6 [facility]2022-07-17 20:10:00 Test Item Value Reference Range Interpretation Comments eGFR (test code = eGFR) 9 [facility] GreenvilleIbrycspPBQOLRTGFH5247-90-01 20:10:00 Test Item Value Reference Range Interpretation Comments WBC (test code = WBC) 4.3 3.7-10.4 [facility] GreenvilleMerjmilMTBVBEMEHU4305-30-93 20:10:00 Test Item Value Reference Range Interpretation Comments RBC (test code = RBC) 2.17 4.70-6.10 [facility] GreenvilleRyojaavUUZUZNMRDE2944-23-23 20:10:00 Test Item Value Reference Range Interpretation Comments Hgb (test code = Hgb) 7.7 14.0-18.0 [facility] GreenvilleNcnafifSGWMMXCEWY2179-32-08 20:10:00 Test Item Value Reference Range Interpretation Comments Hct (test code = Hct) 22.9 42.0-54.0 [facility] GreenvilleSvsqkmhKCPDLZOGLM9413-26-87 20:10:00 Test Item Value Reference Range Interpretation Comments MCV (test code = MCV) 105.9 80.0-94.0 [place] 796562-07-17 20:10:00 Test Item Value Reference Range Interpretation Comments MCH (test code = MCH) 35.4 pg 27.0-31.0 [place] 796562-07-17 20:10:00 Test Item Value Reference Range Interpretation Comments MCHC (test code = MCHC) 33.4 32.0-36.0 [place] 796562-07-17 20:10:00 Test Item Value Reference Range Interpretation Comments RDW (test code = RDW) 23.6 11.5-14.5 [place] 796562-07-17 20:10:00 Test Item Value Reference Range Interpretation Comments Platelet (test code = Platelet) 146 133-450 [facility] GreenvilleNbgbpupUTVMJFRXWU2464-16-40 20:10:00 Test Item Value Reference Range Interpretation Comments MPV (test code = MPV) 8.0 7.4-10.4 [place] 796562-07-17 20:10:00 Test Item Value Reference Range Interpretation Comments Plt Morph (test code = Normal (12/14/21 3:10 Plt Morph) PM) [facility] GreenvilleXfhbrqoNBRYGZRYHS7477-86-85 20:10:00 Test Item Value Reference Range Interpretation Comments Segs (test code = Segs) 67.4 45.0-75.0 [place] 796562-07-17 20:10:00 Test Item Value Reference Range Interpretation Comments Lymphocytes (test code = Lymphocytes) 12.8 20.0-40.0 [place] 796562-07-17 20:10:00 Test Item Value Reference Range Interpretation Comments Monocytes (test code = Monocytes) 15.1 2.0-12.0 [facility] GreenvilleGyegypbEBFOIXMWKM3586-04-92 20:10:00 Test Item Value Reference Range Interpretation Comments Eosinophils (test code = 4.1 See_Comment [A utomated message] The Eosinophils) system which ge nerated this result tra nsmitted reference range : <=4.0. The reference r samantha was not used to int erpret this result as normal/abnormal . [place] 796562-07-17 20:10:00 Test Item Value Reference Range Interpretation Comments Basophils (test code = 0.6 See_Comment [Aut omated message] The Basophils) system which ge nerated this result tra nsmitted reference range : <=1.0. The reference r samantha was not used to int erpret this result as normal/abnormal . [facility] GreenvilleUshfdakKQMXAEWXDK4630-80-32 20:10:00 Test Item Value Reference Range Interpretation Comments Neutrophils # (test code = Neutrophils 2.9 1.5-8.1 #) [place]6562-07-17 20:10:00 Test Item Value Reference Range Interpretation Comments Lymphocytes # (test code = Lymphocytes 0.5 1.0-5.5 #) [place] 796562-07-17 20:10:00 Test Item Value Reference Range Interpretation Comments Monocytes # (test code 0.6 See_Comment [Aut omated message] The = Monocytes #) system which generated this result tra nsmitted reference range : <=0.8. The reference r samantha was not used to int erpret this result as normal/abnormal . [facility] SurgeryOgvendfKFGBLCQEBS7679-13-62 20:10:00 Test Item Value Reference Range Interpretation Comments Eosinophils # (test code 0.2 See_Comment [A utomated message] The = Eosinophils #) system whic h generated this result tra nsmitted reference range : <=0.5. The reference r samantha was not used to int erpret this result as normal/abnormal . [facility] SurgeryRklteakFAXYPBYSID8662-03-27 20:10:00 Test Item Value Reference Range Interpretation Comments Anisocyte (test code = 1+ *ABN*(12/14/21 Anisocyte) 3:10 PM) [facility] GreenvilleGkhwuwbOCIPFIKDJY5077-98-36 20:10:00 Test Item Value Reference Range Interpretation Comments Macrocyte (test code = 1+ *ABN*(12/14/21 Macrocyte) 3:10 PM) [facility] CenterVhycempBROVWGRLQH8616-57-06 20:10:00 Test Item Value Reference Range Interpretation Comments Coronavirus (COVID-19) Detected MANUEL (test code = 4*ABN*(12/14/21 3:10 Coronavirus (COVID-19) PM) MANUEL) [facility] CenterCARDIAC JDRRXYS2054-45-69 20:10:00 Test Item Value Reference Range Interpretation Comments HS Troponin I Baseline (test code = HS 340 Troponin I Baseline) [facility] ACQUB1767-78-85 20:10:00 Test Item Value Reference Range Interpretation Comments Glucose Lvl (test code = Glucose Lvl) 60 70-99 [facility] CenterPlay[facility] MHMZR3361-62-87 20:10:00 Test Item Value Reference Range Interpretation Comments BUN (test code = BUN) 35 7-22 [facility] CenterPlay[facility] OSJSZ2432-24-75 20:10:00 Test Item Value Reference Range Interpretation Comments Creatinine Lvl (test code = Creatinine 6.10 0.50-1.40 Lvl) [facility] Center[facility] HMFXX3484-03-19 20:10:00 Test Item Value Reference Range Interpretation Comments Sodium Lvl (test code = Sodium Lvl) 139 135-145 [place] 509392-07-17 20:10:00 Test Item Value Reference Range Interpretation Comments Potassium Lvl (test code = Potassium 3.1 3.5-5.1 Lvl) [place] [address]-07-17 20:10:00 Test Item Value Reference Range Interpretation Comments Chloride Lvl (test code = Chloride Lvl) 105 95-109 [place] [address]-07-17 20:10:00 Test Item Value Reference Range Interpretation Comments CO2 (test code = CO2) 28 24-32 [place] 509392-07-17 20:10:00 Test Item Value Reference Range Interpretation Comments Calcium Lvl (test code = Calcium Lvl) 8.1 8.5-10.5 [place] 509392-07-17 20:10:00 Test Item Value Reference Range Interpretation Comments Total Protein (test code = Total 5.8 6.4-8.4 Protein) [address]07-17 20:10:00 Test Item Value Reference Range Interpretation Comments Albumin Lvl (test code = Albumin Lvl) 2.6 3.5-5.0 [place] 509392-07-17 20:10:00 Test Item Value Reference Range Interpretation Comments ALT (test code = ALT) 74 See_Comment [Auto mated message] The system which ge nerated this result transmit swathi reference range : <=65. The reference range was not used to interpr et this result as deny l/abnormal. [place] 509392-07-17 20:10:00 Test Item Value Reference Range Interpretation Comments AST (test code = AST) 117 See_Comment [Auto mated message] The system which ge nerated this result transmit swathi reference range : <=37. The reference range was not used to interpr et this result as deny l/abnormal. [place] 509392-07-17 20:10:00 Test Item Value Reference Range Interpretation Comments Alk Phos (test code = Alk Phos) 241 39-136 [place] 509392-07-17 20:10:00 Test Item Value Reference Range Interpretation Comments Bili Total (test code = Bili Total) 0.8 0.2-1.3 [place] [address]-07-17 20:10:00 Test Item Value Reference Range Interpretation Comments AGAP (test code = AGAP) 9.1 10.0-20.0 [facility]2022-07-17 20:10:00 Test Item Value Reference Range Interpretation Comments B/C Ratio (test code = B/C Ratio) 6 1 6-25 [facility]2022-07-17 20:10:00 Test Item Value Reference Range Interpretation Comments Globulin (test code = Globulin) 3.2 2.7-4.2 [facility]2022-07-17 20:10:00 Test Item Value Reference Range Interpretation Comments A/G Ratio (test code = A/G Ratio) 0.8 1 0.7-1.6 [facility]2022-07-17 20:10:00 Test Item Value Reference Range Interpretation Comments eGFR (test code = eGFR) 9 [facility] GreenvilleAcktqclLWCLUMNYQM7239-60-27 20:10:00 Test Item Value Reference Range Interpretation Comments WBC (test code = WBC) 4.3 3.7-10.4 [place]6562-07-17 20:10:00 Test Item Value Reference Range Interpretation Comments RBC (test code = RBC) 2.17 4.70-6.10 [facility] GreenvillePhmsbqaKHWCDBUBBJ1800-95-24 20:10:00 Test Item Value Reference Range Interpretation Comments Hgb (test code = Hgb) 7.7 14.0-18.0 [facility] GreenvilleZbhhfvgLIBXNOBVJQ3463-74-52 20:10:00 Test Item Value Reference Range Interpretation Comments Hct (test code = Hct) 22.9 42.0-54.0 [place] 796562-07-17 20:10:00 Test Item Value Reference Range Interpretation Comments MCV (test code = MCV) 105.9 80.0-94.0 [place] 796562-07-17 20:10:00 Test Item Value Reference Range Interpretation Comments MCH (test code = MCH) 35.4 pg 27.0-31.0 [place] 796562-07-17 20:10:00 Test Item Value Reference Range Interpretation Comments MCHC (test code = MCHC) 33.4 32.0-36.0 [place] 796562-07-17 20:10:00 Test Item Value Reference Range Interpretation Comments RDW (test code = RDW) 23.6 11.5-14.5 [place] 796562-07-17 20:10:00 Test Item Value Reference Range Interpretation Comments Platelet (test code = Platelet) 146 133-450 [place] 796562-07-17 20:10:00 Test Item Value Reference Range Interpretation Comments MPV (test code = MPV) 8.0 7.4-10.4 [facility] GreenvilleGjfaljyKKOAGGSTUG9216-83-35 20:10:00 Test Item Value Reference Range Interpretation Comments Plt Morph (test code = Normal (12/14/21 3:10 Plt Morph) PM) [facility] GreenvilleGxgrmlhBZMFOYSEDN8251-30-18 20:10:00 Test Item Value Reference Range Interpretation Comments Segs (test code = Segs) 67.4 45.0-75.0 [place] 796562-07-17 20:10:00 Test Item Value Reference Range Interpretation Comments Lymphocytes (test code = Lymphocytes) 12.8 20.0-40.0 [place] 796562-07-17 20:10:00 Test Item Value Reference Range Interpretation Comments Monocytes (test code = Monocytes) 15.1 2.0-12.0 [place] 796562-07-17 20:10:00 Test Item Value Reference Range Interpretation Comments Eosinophils (test code = 4.1 See_Comment [A utomated message] The Eosinophils) system which ge nerated this result tra nsmitted reference range : <=4.0. The reference r samantha was not used to int erpret this result as normal/abnormal . [facility] GreenvilleJuqgdciQBMVICAXON2512-02-71 20:10:00 Test Item Value Reference Range Interpretation Comments Basophils (test code = 0.6 See_Comment [Aut omated message] The Basophils) system which ge nerated this result tra nsmitted reference range : <=1.0. The reference r samantha was not used to int erpret this result as normal/abnormal . [facility]villePpjjsopQCBWKPPLOO6445-33-40 20:10:00 Test Item Value Reference Range Interpretation Comments Neutrophils # (test code = Neutrophils 2.9 1.5-8.1 #) [facility]villeMcfcneoNYSVPORFPX2778-56-34 20:10:00 Test Item Value Reference Range Interpretation Comments Lymphocytes # (test code = Lymphocytes 0.5 1.0-5.5 #) [place] 796562-07-17 20:10:00 Test Item Value Reference Range Interpretation Comments Monocytes # (test code 0.6 See_Comment [Aut omated message] The = Monocytes #) system which generated this result tra nsmitted reference range : <=0.8. The reference r samantha was not used to int erpret this result as normal/abnormal . [facility] CenterYyvmxonPJVTEEHWJO7328-77-96 20:10:00 Test Item Value Reference Range Interpretation Comments Eosinophils # (test code 0.2 See_Comment [A utomated message] The = Eosinophils #) system whic h generated this result tra nsmitted reference range : <=0.5. The reference r samantha was not used to int erpret this result as normal/abnormal . [facility] SurgeryAcxowofXLHXGUMECG2331-61-08 20:10:00 Test Item Value Reference Range Interpretation Comments Anisocyte (test code = 1+ *ABN*(12/14/21 Anisocyte) 3:10 PM) [facility] SurgeryLekbirgJDWGSXFYPW5232-28-64 20:10:00 Test Item Value Reference Range Interpretation Comments Macrocyte (test code = 1+ *ABN*(12/14/21 Macrocyte) 3:10 PM) [facility] CenterFkpurtlPSJJQXAGIC9455-06-98 20:10:00 Test Item Value Reference Range Interpretation Comments Coronavirus (COVID-19) Detected MANUEL (test code = 4*ABN*(12/14/21 3:10 Coronavirus (COVID-19) PM) MANUEL) [facility] CenterCARDIAC [id number] 20:10:00 Test Item Value Reference Range Interpretation Comments HS Troponin I Baseline (test code = HS 340 Troponin I Baseline) [facility] CenterCHEM MZBPF9540-20-19 20:10:00 Test Item Value Reference Range Interpretation Comments Glucose Lvl (test code = Glucose Lvl) 60 70-99 [facility] WWHHD5441-11-20 20:10:00 Test Item Value Reference Range Interpretation Comments BUN (test code = BUN) 35 7-22 [facility] CenterPlay[facility] Energy [id number] 20:10:00 Test Item Value Reference Range Interpretation Comments Creatinine Lvl (test code = Creatinine 6.10 0.50-1.40 Lvl) [facility] CenterPlay[facility] UBAYZ4848-26-91 20:10:00 Test Item Value Reference Range Interpretation Comments Sodium Lvl (test code = Sodium Lvl) 139 135-145 [place] 509392-07-17 20:10:00 Test Item Value Reference Range Interpretation Comments Potassium Lvl (test code = Potassium 3.1 3.5-5.1 Lvl) [place] 509392-07-17 20:10:00 Test Item Value Reference Range Interpretation Comments Chloride Lvl (test code = Chloride Lvl) 105 95-109 [facility] HospitalFlynnLANCE V[place] [address]KXKYF0504-78-25 20:10:00 Test Item Value Reference Range Interpretation Comments CO2 (test code = CO2) 28 24-32 [place] 509392-07-17 20:10:00 Test Item Value Reference Range Interpretation Comments Calcium Lvl (test code = Calcium Lvl) 8.1 8.5-10.5 [place] 509392-07-17 20:10:00 Test Item Value Reference Range Interpretation Comments Total Protein (test code = Total 5.8 6.4-8.4 Protein) [place] 509392-07-17 20:10:00 Test Item Value Reference Range Interpretation Comments Albumin Lvl (test code = Albumin Lvl) 2.6 3.5-5.0 [place] 509392-07-17 20:10:00 Test Item Value Reference Range Interpretation Comments ALT (test code = ALT) 74 See_Comment [Auto mated message] The system which ge nerated this result transmit swathi reference range : <=65. The reference range was not used to interpr et this result as deny l/abnormal. [place] 509392-07-17 20:10:00 Test Item Value Reference Range Interpretation Comments AST (test code = AST) 117 See_Comment [Auto mated message] The system which ge nerated this result transmit swathi reference range : <=37. The reference range was not used to interpr et this result as deny l/abnormal. [facility] [id number] 20:10:00 Test Item Value Reference Range Interpretation Comments Alk Phos (test code = Alk Phos) 241 39-136 [place] 509392-07-17 20:10:00 Test Item Value Reference Range Interpretation Comments Bili Total (test code = Bili Total) 0.8 0.2-1.3 [place] 509392-07-17 20:10:00 Test Item Value Reference Range Interpretation Comments AGAP (test code = AGAP) 9.1 10.0-20.0 [facility]2022-07-17 20:10:00 Test Item Value Reference Range Interpretation Comments B/C Ratio (test code = B/C Ratio) 6 1 6-25 [place] 509392-07-17 20:10:00 Test Item Value Reference Range Interpretation Comments Globulin (test code = Globulin) 3.2 2.7-4.2 [place] 509392-07-17 20:10:00 Test Item Value Reference Range Interpretation Comments A/G Ratio (test code = A/G Ratio) 0.8 1 0.7-1.6 [place] 509392-07-17 20:10:00 Test Item Value Reference Range Interpretation Comments eGFR (test code = eGFR) 9 [facility]villeRoqrascSWYPVIGWZR0617-29-76 20:10:00 Test Item Value Reference Range Interpretation Comments WBC (test code = WBC) 4.3 3.7-10.4 [place] 796562-07-17 20:10:00 Test Item Value Reference Range Interpretation Comments RBC (test code = RBC) 2.17 4.70-6.10 [place] 796562-07-17 20:10:00 Test Item Value Reference Range Interpretation Comments Hgb (test code = Hgb) 7.7 14.0-18.0 [place] 796562-07-17 20:10:00 Test Item Value Reference Range Interpretation Comments Hct (test code = Hct) 22.9 42.0-54.0 [place] 796562-07-17 20:10:00 Test Item Value Reference Range Interpretation Comments MCV (test code = MCV) 105.9 80.0-94.0 [place] 796562-07-17 20:10:00 Test Item Value Reference Range Interpretation Comments MCH (test code = MCH) 35.4 pg 27.0-31.0 [place] 796562-07-17 20:10:00 Test Item Value Reference Range Interpretation Comments MCHC (test code = MCHC) 33.4 32.0-36.0 [place] 796562-07-17 20:10:00 Test Item Value Reference Range Interpretation Comments RDW (test code = RDW) 23.6 11.5-14.5 [facility] GreenvilleQzrkmsqKZAVXLJCOX0491-19-26 20:10:00 Test Item Value Reference Range Interpretation Comments Platelet (test code = Platelet) 146 133-450 [facility] GreenvilleErepcpeDKPGADSHWJ0743-82-51 20:10:00 Test Item Value Reference Range Interpretation Comments MPV (test code = MPV) 8.0 7.4-10.4 [facility] GreenvilleVammhexZDLXCKULRU7367-12-40 20:10:00 Test Item Value Reference Range Interpretation Comments Plt Morph (test code = Normal (12/14/21 3:10 Plt Morph) PM) [facility] GreenvilleZdmunmjGLAGJOGVYK3662-44-04 20:10:00 Test Item Value Reference Range Interpretation Comments Segs (test code = Segs) 67.4 45.0-75.0 [facility] GreenvilleNmalvncNPITYJZNGM0076-12-23 20:10:00 Test Item Value Reference Range Interpretation Comments Lymphocytes (test code = Lymphocytes) 12.8 20.0-40.0 [facility] GreenvilleOtukgraPHIXMEWDME3020-41-30 20:10:00 Test Item Value Reference Range Interpretation Comments Monocytes (test code = Monocytes) 15.1 2.0-12.0 [facility] GreenvilleOgjyjesDLBXVYWHET7260-32-24 20:10:00 Test Item Value Reference Range Interpretation Comments Eosinophils (test code = 4.1 See_Comment [A utomated message] The Eosinophils) system which ge nerated this result tra nsmitted reference range : <=4.0. The reference r samantha was not used to int erpret this result as normal/abnormal . [facility] GreenvilleHloxgjcHBDXNYICKA2490-08-18 20:10:00 Test Item Value Reference Range Interpretation Comments Basophils (test code = 0.6 See_Comment [Aut omated message] The Basophils) system which ge nerated this result tra nsmitted reference range : <=1.0. The reference r samantha was not used to int erpret this result as normal/abnormal . [facility] GreenvilleKmzmfevIAIPNUTRJG6821-05-70 20:10:00 Test Item Value Reference Range Interpretation Comments Neutrophils # (test code = Neutrophils 2.9 1.5-8.1 #) [facility] GreenvilleMhcfembXHYBDMEZCO7740-45-67 20:10:00 Test Item Value Reference Range Interpretation Comments Lymphocytes # (test code = Lymphocytes 0.5 1.0-5.5 #) [facility] SurgeryEvhwjztFVSGPHXRPJ8217-88-21 20:10:00 Test Item Value Reference Range Interpretation Comments Monocytes # (test code 0.6 See_Comment [Aut omated message] The = Monocytes #) system which generated this result tra nsmitted reference range : <=0.8. The reference r samantha was not used to int erpret this result as normal/abnormal . [facility] GreenvilleCzzlvosCUDPHZVHRQ3948-07-23 20:10:00 Test Item Value Reference Range Interpretation Comments Eosinophils # (test code 0.2 See_Comment [A utomated message] The = Eosinophils #) system whic h generated this result tra nsmitted reference range : <=0.5. The reference r samantha was not used to int erpret this result as normal/abnormal . [facility] GreenvilleVyjopxoPDWGHOQVPF5870-52-92 20:10:00 Test Item Value Reference Range Interpretation Comments Anisocyte (test code = 1+ *ABN*(12/14/21 Anisocyte) 3:10 PM) [facility] GreenvilleGylcmouIWWNKRMKTD0378-30-19 20:10:00 Test Item Value Reference Range Interpretation Comments Macrocyte (test code = 1+ *ABN*(12/14/21 Macrocyte) 3:10 PM) [facility] CenterSvormmpPGJXPRWFZQ8059-45-32 20:10:00 Test Item Value Reference Range Interpretation Comments Coronavirus (COVID-19) Detected MANUEL (test code = 4*ABN*(12/14/21 3:10 Coronavirus (COVID-19) PM) MANUEL) [facility] CenterCARDIAC SOPZFYF5916-91-48 20:10:00 Test Item Value Reference Range Interpretation Comments HS Troponin I Baseline (test code = HS 340 Troponin I Baseline) [facility] CenterPlayground Energy EGRUK5515-24-42 20:10:00 Test Item Value Reference Range Interpretation Comments Glucose Lvl (test code = Glucose Lvl) 60 70-99 [facility] SGUII2887-24-90 20:10:00 Test Item Value Reference Range Interpretation Comments BUN (test code = BUN) 35 7-22 [facility] CenterPlay[facility] IRDKP4559-09-10 20:10:00 Test Item Value Reference Range Interpretation Comments Creatinine Lvl (test code = Creatinine 6.10 0.50-1.40 Lvl) [facility] CenterPlay[facility] VCTLJ0469-94-92 20:10:00 Test Item Value Reference Range Interpretation Comments Sodium Lvl (test code = Sodium Lvl) 139 135-145 [facility] HospitalFlynnLANCE VILLE [address]ZCKPC6386-57-26 20:10:00 Test Item Value Reference Range Interpretation Comments Potassium Lvl (test code = Potassium 3.1 3.5-5.1 Lvl) [place] 509392-07-17 20:10:00 Test Item Value Reference Range Interpretation Comments Chloride Lvl (test code = Chloride Lvl) 105 95-109 [facility] HospitalS[facility] ILXYB4838-34-55 20:10:00 Test Item Value Reference Range Interpretation Comments CO2 (test code = CO2) 28 24-32 [facility] HospitalFlynnLANCE [place]ILLE [address]LFRSA7000-55-91 20:10:00 Test Item Value Reference Range Interpretation Comments Calcium Lvl (test code = Calcium Lvl) 8.1 8.5-10.5 [place] 509392-07-17 20:10:00 Test Item Value Reference Range Interpretation Comments Total Protein (test code = Total 5.8 6.4-8.4 Protein) [place] 509392-07-17 20:10:00 Test Item Value Reference Range Interpretation Comments Albumin Lvl (test code = Albumin Lvl) 2.6 3.5-5.0 [facility] HospitalS[facility] PNFXW0733-46-11 20:10:00 Test Item Value Reference Range Interpretation Comments ALT (test code = ALT) 74 See_Comment [Auto mated message] The system which ge nerated this result transmit swathi reference range : <=65. The reference range was not used to interpr et this result as deny l/abnormal. [facility] [id number] 20:10:00 Test Item Value Reference Range Interpretation Comments AST (test code = AST) 117 See_Comment [Auto mated message] The system which ge nerated this result transmit swathi reference range : <=37. The reference range was not used to interpr et this result as deny l/abnormal. [facility] [id number] 20:10:00 Test Item Value Reference Range Interpretation Comments Alk Phos (test code = Alk Phos) 241 39-136 [facility] HospitalS[facility] MPYSU9670-47-02 20:10:00 Test Item Value Reference Range Interpretation Comments Bili Total (test code = Bili Total) 0.8 0.2-1.3 [place] 509392-07-17 20:10:00 Test Item Value Reference Range Interpretation Comments AGAP (test code = AGAP) 9.1 10.0-20.0 [place] 509392-07-17 20:10:00 Test Item Value Reference Range Interpretation Comments B/C Ratio (test code = B/C Ratio) 6 1 6-25 [place] [address]-07-17 20:10:00 Test Item Value Reference Range Interpretation Comments Globulin (test code = Globulin) 3.2 2.7-4.2 [place] 509392-07-17 20:10:00 Test Item Value Reference Range Interpretation Comments A/G Ratio (test code = A/G Ratio) 0.8 1 0.7-1.6 [place] 509392-07-17 20:10:00 Test Item Value Reference Range Interpretation Comments eGFR (test code = eGFR) 9 [facility] GreenvilleZkeangkJRALLRWIEN1359-94-55 20:10:00 Test Item Value Reference Range Interpretation Comments WBC (test code = WBC) 4.3 3.7-10.4 [place] 796562-07-17 20:10:00 Test Item Value Reference Range Interpretation Comments RBC (test code = RBC) 2.17 4.70-6.10 [place] 796562-07-17 20:10:00 Test Item Value Reference Range Interpretation Comments Hgb (test code = Hgb) 7.7 14.0-18.0 [place] 796562-07-17 20:10:00 Test Item Value Reference Range Interpretation Comments Hct (test code = Hct) 22.9 42.0-54.0 [place] 796562-07-17 20:10:00 Test Item Value Reference Range Interpretation Comments MCV (test code = MCV) 105.9 80.0-94.0 [place] [address]-07-17 20:10:00 Test Item Value Reference Range Interpretation Comments MCH (test code = MCH) 35.4 pg 27.0-31.0 [place] 796562-07-17 20:10:00 Test Item Value Reference Range Interpretation Comments MCHC (test code = MCHC) 33.4 32.0-36.0 [place] 796562-07-17 20:10:00 Test Item Value Reference Range Interpretation Comments RDW (test code = RDW) 23.6 11.5-14.5 [place] 796562-07-17 20:10:00 Test Item Value Reference Range Interpretation Comments Platelet (test code = Platelet) 146 133-450 [place] 796562-07-17 20:10:00 Test Item Value Reference Range Interpretation Comments MPV (test code = MPV) 8.0 7.4-10.4 [place] 796562-07-17 20:10:00 Test Item Value Reference Range Interpretation Comments Plt Morph (test code = Normal (12/14/21 3:10 Plt Morph) PM) [facility] GreenvilleEzpodrqYSNRSXBTHM0286-60-84 20:10:00 Test Item Value Reference Range Interpretation Comments Segs (test code = Segs) 67.4 45.0-75.0 [place] 796562-07-17 20:10:00 Test Item Value Reference Range Interpretation Comments Lymphocytes (test code = Lymphocytes) 12.8 20.0-40.0 [place] 796562-07-17 20:10:00 Test Item Value Reference Range Interpretation Comments Monocytes (test code = Monocytes) 15.1 2.0-12.0 [place] 796562-07-17 20:10:00 Test Item Value Reference Range Interpretation Comments Eosinophils (test code = 4.1 See_Comment [A utomated message] The Eosinophils) system which ge nerated this result tra nsmitted reference range : <=4.0. The reference r samantha was not used to int erpret this result as normal/abnormal . [place] 796562-07-17 20:10:00 Test Item Value Reference Range Interpretation Comments Basophils (test code = 0.6 See_Comment [Aut omated message] The Basophils) system which ge nerated this result tra nsmitted reference range : <=1.0. The reference r samantha was not used to int erpret this result as normal/abnormal . [facility] GreenvilleLqdchtnLHVKBOLCOG2200-22-81 20:10:00 Test Item Value Reference Range Interpretation Comments Neutrophils # (test code = Neutrophils 2.9 1.5-8.1 #) [facility] GreenvilleRewjoemWTUZAUDAUL3548-80-70 20:10:00 Test Item Value Reference Range Interpretation Comments Lymphocytes # (test code = Lymphocytes 0.5 1.0-5.5 #) [facility] SurgeryOoesityLJWPZHJDLT0691-70-50 20:10:00 Test Item Value Reference Range Interpretation Comments Monocytes # (test code 0.6 See_Comment [Aut omated message] The = Monocytes #) system which generated this result tra nsmitted reference range : <=0.8. The reference r samantha was not used to int erpret this result as normal/abnormal . [facility] GreenvilleNiglofkCZMZYAOBZL2366-70-81 20:10:00 Test Item Value Reference Range Interpretation Comments Eosinophils # (test code 0.2 See_Comment [A utomated message] The = Eosinophils #) system whic h generated this result tra nsmitted reference range : <=0.5. The reference r samantha was not used to int erpret this result as normal/abnormal . [facility] GreenvilleQaznvtdUYMVCWDHAH3323-79-57 20:10:00 Test Item Value Reference Range Interpretation Comments Anisocyte (test code = 1+ *ABN*(12/14/21 Anisocyte) 3:10 PM) [facility] CenterFtcbdcvYSHUYSRBMA2008-46-76 20:10:00 Test Item Value Reference Range Interpretation Comments Macrocyte (test code = 1+ *ABN*(12/14/21 Macrocyte) 3:10 PM) [facility] CenterNcecdphGELJMAKYDL9086-53-08 20:10:00 Test Item Value Reference Range Interpretation Comments Coronavirus (COVID-19) Detected MANUEL (test code = 4*ABN*(12/14/21 3:10 Coronavirus (COVID-19) PM) MANUEL) [facility] CenterCARDIAC NKCGKHK5485-45-96 20:10:00 Test Item Value Reference Range Interpretation Comments HS Troponin I Baseline (test code = HS 340 Troponin I Baseline) [facility] CenterPlayground Energy [id number] 20:10:00 Test Item Value Reference Range Interpretation Comments Glucose Lvl (test code = Glucose Lvl) 60 70-99 [facility] HospitalS[facility] SOIAJ3340-01-42 20:10:00 Test Item Value Reference Range Interpretation Comments BUN (test code = BUN) 35 7-22 [facility] CenterPlay[facility] YCKZX2426-18-99 20:10:00 Test Item Value Reference Range Interpretation Comments Creatinine Lvl (test code = Creatinine 6.10 0.50-1.40 Lvl) [facility] CenterPlay[facility] YQAHD5905-74-61 20:10:00 Test Item Value Reference Range Interpretation Comments Sodium Lvl (test code = Sodium Lvl) 139 135-145 [place] 509392-07-17 20:10:00 Test Item Value Reference Range Interpretation Comments Potassium Lvl (test code = Potassium 3.1 3.5-5.1 Lvl) [place] 509392-07-17 20:10:00 Test Item Value Reference Range Interpretation Comments Chloride Lvl (test code = Chloride Lvl) 105 95-109 [place] 509392-07-17 20:10:00 Test Item Value Reference Range Interpretation Comments CO2 (test code = CO2) 28 24-32 [place] 509392-07-17 20:10:00 Test Item Value Reference Range Interpretation Comments Calcium Lvl (test code = Calcium Lvl) 8.1 8.5-10.5 [place] 509392-07-17 20:10:00 Test Item Value Reference Range Interpretation Comments Total Protein (test code = Total 5.8 6.4-8.4 Protein) [place] 509392-07-17 20:10:00 Test Item Value Reference Range Interpretation Comments Albumin Lvl (test code = Albumin Lvl) 2.6 3.5-5.0 [facility] CenterPlay[facility] Energy [id number] 20:10:00 Test Item Value Reference Range Interpretation Comments ALT (test code = ALT) 74 See_Comment [Auto mated message] The system which ge nerated this result transmit swathi reference range : <=65. The reference range was not used to interpr et this result as deny l/abnormal. [facility] CenterPlay[facility] Energy [id number] 20:10:00 Test Item Value Reference Range Interpretation Comments AST (test code = AST) 117 See_Comment [Auto mated message] The system which ge nerated this result transmit swathi reference range : <=37. The reference range was not used to interpr et this result as deny l/abnormal. [facility] CenterPlay[facility] Energy [id number] 20:10:00 Test Item Value Reference Range Interpretation Comments Alk Phos (test code = Alk Phos) 241 39-136 [place] 509392-07-17 20:10:00 Test Item Value Reference Range Interpretation Comments Bili Total (test code = Bili Total) 0.8 0.2-1.3 [place] 509392-07-17 20:10:00 Test Item Value Reference Range Interpretation Comments AGAP (test code = AGAP) 9.1 10.0-20.0 [facility]2022-07-17 20:10:00 Test Item Value Reference Range Interpretation Comments B/C Ratio (test code = B/C Ratio) 6 1 6-25 [place] 509392-07-17 20:10:00 Test Item Value Reference Range Interpretation Comments Globulin (test code = Globulin) 3.2 2.7-4.2 [place] 509392-07-17 20:10:00 Test Item Value Reference Range Interpretation Comments A/G Ratio (test code = A/G Ratio) 0.8 1 0.7-1.6 [place] 509392-07-17 20:10:00 Test Item Value Reference Range Interpretation Comments eGFR (test code = eGFR) 9 [facility] GreenvilleTlgamtiBMHJLMMOHE0952-01-97 20:10:00 Test Item Value Reference Range Interpretation Comments WBC (test code = WBC) 4.3 3.7-10.4 [place] 796562-07-17 20:10:00 Test Item Value Reference Range Interpretation Comments RBC (test code = RBC) 2.17 4.70-6.10 [facility] GreenvilleUispwalHYGEAQDBAP8277-77-59 20:10:00 Test Item Value Reference Range Interpretation Comments Hgb (test code = Hgb) 7.7 14.0-18.0 [facility] GreenvilleIimxtmoDBPBPMDIRL2237-71-86 20:10:00 Test Item Value Reference Range Interpretation Comments Hct (test code = Hct) 22.9 42.0-54.0 [place] 796562-07-17 20:10:00 Test Item Value Reference Range Interpretation Comments MCV (test code = MCV) 105.9 80.0-94.0 [place] 796562-07-17 20:10:00 Test Item Value Reference Range Interpretation Comments MCH (test code = MCH) 35.4 pg 27.0-31.0 [place] 796562-07-17 20:10:00 Test Item Value Reference Range Interpretation Comments MCHC (test code = MCHC) 33.4 32.0-36.0 [place] 796562-07-17 20:10:00 Test Item Value Reference Range Interpretation Comments RDW (test code = RDW) 23.6 11.5-14.5 [place] 796562-07-17 20:10:00 Test Item Value Reference Range Interpretation Comments Platelet (test code = Platelet) 146 133-450 [place] 796562-07-17 20:10:00 Test Item Value Reference Range Interpretation Comments MPV (test code = MPV) 8.0 7.4-10.4 [place] 796562-07-17 20:10:00 Test Item Value Reference Range Interpretation Comments Plt Morph (test code = Normal (12/14/21 3:10 Plt Morph) PM) [place] 796562-07-17 20:10:00 Test Item Value Reference Range Interpretation Comments Segs (test code = Segs) 67.4 45.0-75.0 [facility] GreenvilleBuvmtgsIMAOOVVXVK1804-90-77 20:10:00 Test Item Value Reference Range Interpretation Comments Lymphocytes (test code = Lymphocytes) 12.8 20.0-40.0 [facility] GreenvilleAiitwerQZSXCQARWB6635-10-26 20:10:00 Test Item Value Reference Range Interpretation Comments Monocytes (test code = Monocytes) 15.1 2.0-12.0 [facility] GreenvilleKbythztGIXADLGDTU8048-48-83 20:10:00 Test Item Value Reference Range Interpretation Comments Eosinophils (test code = 4.1 See_Comment [A utomated message] The Eosinophils) system which ge nerated this result tra nsmitted reference range : <=4.0. The reference r samantha was not used to int erpret this result as normal/abnormal . [facility] GreenvilleOnmosobFQFXBOATUP1921-59-85 20:10:00 Test Item Value Reference Range Interpretation Comments Basophils (test code = 0.6 See_Comment [Aut omated message] The Basophils) system which ge nerated this result tra nsmitted reference range : <=1.0. The reference r samantha was not used to int erpret this result as normal/abnormal . [place] 796562-07-17 20:10:00 Test Item Value Reference Range Interpretation Comments Neutrophils # (test code = Neutrophils 2.9 1.5-8.1 #) [place] 796562-07-17 20:10:00 Test Item Value Reference Range Interpretation Comments Lymphocytes # (test code = Lymphocytes 0.5 1.0-5.5 #) [facility]NssagplLOHUZQITOP2191-96-35 20:10:00 Test Item Value Reference Range Interpretation Comments Monocytes # (test code 0.6 See_Comment [Aut omated message] The = Monocytes #) system which generated this result tra nsmitted reference range : <=0.8. The reference r samantha was not used to int erpret this result as normal/abnormal . [facility]villeGgkvmwqPNLTEBRNJV4703-73-23 20:10:00 Test Item Value Reference Range Interpretation Comments Eosinophils # (test code 0.2 See_Comment [A utomated message] The = Eosinophils #) system whic h generated this result tra nsmitted reference range : <=0.5. The reference r samantha was not used to int erpret this result as normal/abnormal . [facility]villePcvzwpiIOMIKGXYPT5769-91-98 20:10:00 Test Item Value Reference Range Interpretation Comments Anisocyte (test code = 1+ *ABN*(12/14/21 Anisocyte) 3:10 PM) [facility]villeAqjjguiTUAJGNRPSG1582-05-93 20:10:00 Test Item Value Reference Range Interpretation Comments Macrocyte (test code = 1+ *ABN*(12/14/21 Macrocyte) 3:10 PM) [facility] CenterLyrxbfiRKUJMCHQWV1595-80-15 20:10:00 Test Item Value Reference Range Interpretation Comments Coronavirus (COVID-19) Detected MANUEL (test code = 4*ABN*(12/14/21 3:10 Coronavirus (COVID-19) PM) MANUEL) [facility] CenterCARDIAC ESSTZYS7403-04-46 20:10:00 Test Item Value Reference Range Interpretation Comments HS Troponin I Baseline (test code = HS 340 Troponin I Baseline) [facility] CenterPlay[facility] Energy UUTOM1401-84-17 20:10:00 Test Item Value Reference Range Interpretation Comments Glucose Lvl (test code = Glucose Lvl) 60 70-99 [facility] OGYJC0862-10-03 20:10:00 Test Item Value Reference Range Interpretation Comments BUN (test code = BUN) 35 7-22 [facility] [id number] 20:10:00 Test Item Value Reference Range Interpretation Comments Creatinine Lvl (test code = Creatinine 6.10 0.50-1.40 Lvl) [place] 509392-07-17 20:10:00 Test Item Value Reference Range Interpretation Comments Sodium Lvl (test code = Sodium Lvl) 139 135-145 [place] 509392-07-17 20:10:00 Test Item Value Reference Range Interpretation Comments Potassium Lvl (test code = Potassium 3.1 3.5-5.1 Lvl) [place] 509392-07-17 20:10:00 Test Item Value Reference Range Interpretation Comments Chloride Lvl (test code = Chloride Lvl) 105 95-109 [place] [address]-07-17 20:10:00 Test Item Value Reference Range Interpretation Comments CO2 (test code = CO2) 28 24-32 [place] 509392-07-17 20:10:00 Test Item Value Reference Range Interpretation Comments Calcium Lvl (test code = Calcium Lvl) 8.1 8.5-10.5 [place] 509392-07-17 20:10:00 Test Item Value Reference Range Interpretation Comments Total Protein (test code = Total 5.8 6.4-8.4 Protein) [place] 509392-07-17 20:10:00 Test Item Value Reference Range Interpretation Comments Albumin Lvl (test code = Albumin Lvl) 2.6 3.5-5.0 [place] 509392-07-17 20:10:00 Test Item Value Reference Range Interpretation Comments ALT (test code = ALT) 74 See_Comment [Auto mated message] The system which ge nerated this result transmit swathi reference range : <=65. The reference range was not used to interpr et this result as deny l/abnormal. [place] 509392-07-17 20:10:00 Test Item Value Reference Range Interpretation Comments AST (test code = AST) 117 See_Comment [Auto mated message] The system which ge nerated this result transmit swathi reference range : <=37. The reference range was not used to interpr et this result as deny l/abnormal. [place] 509392-07-17 20:10:00 Test Item Value Reference Range Interpretation Comments Alk Phos (test code = Alk Phos) 241 39-136 [place] 509392-07-17 20:10:00 Test Item Value Reference Range Interpretation Comments Bili Total (test code = Bili Total) 0.8 0.2-1.3 [place] 509392-07-17 20:10:00 Test Item Value Reference Range Interpretation Comments AGAP (test code = AGAP) 9.1 10.0-20.0 [place] 509392-07-17 20:10:00 Test Item Value Reference Range Interpretation Comments B/C Ratio (test code = B/C Ratio) 6 1 6-25 [place] 509392-07-17 20:10:00 Test Item Value Reference Range Interpretation Comments Globulin (test code = Globulin) 3.2 2.7-4.2 [place] 509392-07-17 20:10:00 Test Item Value Reference Range Interpretation Comments A/G Ratio (test code = A/G Ratio) 0.8 1 0.7-1.6 [place] 509392-07-17 20:10:00 Test Item Value Reference Range Interpretation Comments eGFR (test code = eGFR) 9 [facility] GreenvilleStmlyhxELMXXNPXBR5075-04-00 20:10:00 Test Item Value Reference Range Interpretation Comments WBC (test code = WBC) 4.3 3.7-10.4 [place] 796562-07-17 20:10:00 Test Item Value Reference Range Interpretation Comments RBC (test code = RBC) 2.17 4.70-6.10 [place] 796562-07-17 20:10:00 Test Item Value Reference Range Interpretation Comments Hgb (test code = Hgb) 7.7 14.0-18.0 [place] 796562-07-17 20:10:00 Test Item Value Reference Range Interpretation Comments Hct (test code = Hct) 22.9 42.0-54.0 [place] [address]-07-17 20:10:00 Test Item Value Reference Range Interpretation Comments MCV (test code = MCV) 105.9 80.0-94.0 [place] 796562-07-17 20:10:00 Test Item Value Reference Range Interpretation Comments MCH (test code = MCH) 35.4 pg 27.0-31.0 [place] 796562-07-17 20:10:00 Test Item Value Reference Range Interpretation Comments MCHC (test code = MCHC) 33.4 32.0-36.0 [place] 796562-07-17 20:10:00 Test Item Value Reference Range Interpretation Comments RDW (test code = RDW) 23.6 11.5-14.5 [place] 796562-07-17 20:10:00 Test Item Value Reference Range Interpretation Comments Platelet (test code = Platelet) 146 133-450 [place] 796562-07-17 20:10:00 Test Item Value Reference Range Interpretation Comments MPV (test code = MPV) 8.0 7.4-10.4 [place] 796562-07-17 20:10:00 Test Item Value Reference Range Interpretation Comments Plt Morph (test code = Normal (12/14/21 3:10 Plt Morph) PM) [place] 796562-07-17 20:10:00 Test Item Value Reference Range Interpretation Comments Segs (test code = Segs) 67.4 45.0-75.0 [place] 796562-07-17 20:10:00 Test Item Value Reference Range Interpretation Comments Lymphocytes (test code = Lymphocytes) 12.8 20.0-40.0 [place] 796562-07-17 20:10:00 Test Item Value Reference Range Interpretation Comments Monocytes (test code = Monocytes) 15.1 2.0-12.0 [place] 796562-07-17 20:10:00 Test Item Value Reference Range Interpretation Comments Eosinophils (test code = 4.1 See_Comment [A utomated message] The Eosinophils) system which ge nerated this result tra nsmitted reference range : <=4.0. The reference r samantha was not used to int erpret this result as normal/abnormal . [facility] GreenvilleOljdewqCBGNPMDFTZ3706-42-76 20:10:00 Test Item Value Reference Range Interpretation Comments Basophils (test code = 0.6 See_Comment [Aut omated message] The Basophils) system which ge nerated this result tra nsmitted reference range : <=1.0. The reference r samantha was not used to int erpret this result as normal/abnormal . [place] 796562-07-17 20:10:00 Test Item Value Reference Range Interpretation Comments Neutrophils # (test code = Neutrophils 2.9 1.5-8.1 #) [place] 796562-07-17 20:10:00 Test Item Value Reference Range Interpretation Comments Lymphocytes # (test code = Lymphocytes 0.5 1.0-5.5 #) [facility] GreenvilleTpnshoaGYSZNFMDXF5576-03-21 20:10:00 Test Item Value Reference Range Interpretation Comments Monocytes # (test code 0.6 See_Comment [Aut omated message] The = Monocytes #) system which generated this result tra nsmitted reference range : <=0.8. The reference r samantha was not used to int erpret this result as normal/abnormal . [facility] GreenvilleSmwvayeKQDAIPROHP0324-81-92 20:10:00 Test Item Value Reference Range Interpretation Comments Eosinophils # (test code 0.2 See_Comment [A utomated message] The = Eosinophils #) system whic h generated this result tra nsmitted reference range : <=0.5. The reference r samantha was not used to int erpret this result as normal/abnormal . [facility] GreenvillePmqpppoLYDKLZRKRQ5820-99-98 20:10:00 Test Item Value Reference Range Interpretation Comments Anisocyte (test code = 1+ *ABN*(12/14/21 Anisocyte) 3:10 PM) [facility] GreenvilleWkunbkwJIAFISMTZG5292-01-07 20:10:00 Test Item Value Reference Range Interpretation Comments Macrocyte (test code = 1+ *ABN*(12/14/21 Macrocyte) 3:10 PM) [facility] CenterGcdixxmELNZENODLR6447-29-44 20:10:00 Test Item Value Reference Range Interpretation Comments Coronavirus (COVID-19) Detected MANUEL (test code = 4*ABN*(12/14/21 3:10 Coronavirus (COVID-19) PM) MANUEL) [facility] AND [id number] 01:43:00 Test Item Value Reference Range Interpretation Comments Occult Bld Stl (test Negative (12/03/21 8:43 code = Occult Bld Stl) PM) [facility] AND [id number] 01:43:00 Test Item Value Reference Range Interpretation Comments Occult Bld Stl (test Negative (12/03/21 8:43 code = Occult Bld Stl) PM) [facility] AND [id number] 01:43:00 Test Item Value Reference Range Interpretation Comments Occult Bld Stl (test Negative (12/03/21 8:43 code = Occ[facility] Bld Stl) PM) [facility] [id number] 01:43:00 Test Item Value Reference Range Interpretation Comments Occult Bld Stl (test Negative (12/03/21 8:43 code = Occult Bld Stl) PM) [facility] [id number] 01:43:00 Test Item Value Reference Range Interpretation Comments Occult Bld Stl (test Negative (12/03/21 8:43 code = Occult Bld Stl) PM) [facility] [id number] 01:43:00 Test Item Value Reference Range Interpretation Comments Occult Bld Stl (test Negative (12/03/21 8:43 code = Occult Bld Stl) PM) [facility] [id number] 01:43:00 Test Item Value Reference Range Interpretation Comments Occult Bld Stl (test Negative (12/03/21 8:43 code = Occult Bld Stl) PM) [facility] [id number] 01:43:00 Test Item Value Reference Range Interpretation Comments Occult Bld Stl (test Negative (12/03/21 8:43 code = Occult Bld Stl) PM) [facility] [id number] 01:43:00 Test Item Value Reference Range Interpretation Comments Occult Bld Stl (test Negative (12/03/21 8:43 code = Occult Bld Stl) PM) [facility] [id number] 01:43:00 Test Item Value Reference Range Interpretation Comments Occult Bld Stl (test Negative (12/03/21 8:43 code = Occult Bld Stl) PM) [facility] [id number] 01:43:00 Test Item Value Reference Range Interpretation Comments Occult Bld Stl (test Negative (12/03/21 8:43 code = Occult Bld Stl) PM) [facility] [id number] 01:43:00 Test Item Value Reference Range Interpretation Comments Occult Bld Stl (test Negative (12/03/21 8:43 code = Occult Bld Stl) PM) [facility] [id number] 01:43:00 Test Item Value Reference Range Interpretation Comments Occult Bld Stl (test Negative (12/03/21 8:43 code = Occult Bld Stl) PM) [facility] [id number] 01:29:00 Test Item Value Reference Range Interpretation Comments RBC product (test code Product available = RBC product) 2(12/03/21 8:29 PM) [facility] [id number] 01:29:00 Test Item Value Reference Range Interpretation Comments RBC product (test code Product available = RBC product) 2(12/03/21 8:29 PM) [facility] [id number] 01:29:00 Test Item Value Reference Range Interpretation Comments RBC product (test code Product available = RBC product) 2(12/03/21 8:29 PM) [facility] [id number] 01:29:00 Test Item Value Reference Range Interpretation Comments RBC product (test code Product available = RBC product) 2(12/03/21 8:29 PM) [facility] [id number] 01:29:00 Test Item Value Reference Range Interpretation Comments RBC product (test code Product available = RBC product) 2(12/03/21 8:29 PM) [facility] [id number] 01:29:00 Test Item Value Reference Range Interpretation Comments RBC product (test code Product available = RBC product) 2(12/03/21 8:29 PM) [facility] [id number] 01:29:00 Test Item Value Reference Range Interpretation Comments RBC product (test code Product available = RBC product) 2(12/03/21 8:29 PM) [facility] [id number] 01:29:00 Test Item Value Reference Range Interpretation Comments RBC product (test code Product available = RBC product) 2(12/03/21 8:29 PM) [facility] [id number] 01:29:00 Test Item Value Reference Range Interpretation Comments RBC product (test code Product available = RBC product) 2(12/03/21 8:29 PM) [facility] [id number] 01:29:00 Test Item Value Reference Range Interpretation Comments RBC product (test code Product available = RBC product) 2(12/03/21 8:29 PM) [facility] [id number] 01:29:00 Test Item Value Reference Range Interpretation Comments RBC product (test code Product available = RBC product) 2(12/03/21 8:29 PM) [facility] [id number] 01:29:00 Test Item Value Reference Range Interpretation Comments RBC product (test code Product available = RBC product) 2(12/03/21 8:29 PM) [facility] [id number] 01:29:00 Test Item Value Reference Range Interpretation Comments RBC product (test code Product available = RBC product) 2(12/03/21 8:29 PM) [facility] [id number] 00:36:00 Test Item Value Reference Range Interpretation Comments ABO/Rh (test code = ABO/Rh) AB POS [facility] [id number] 00:36:00 Test Item Value Reference Range Interpretation Comments Antibody Scrn (test Negative (12/03/21 7:36 code = Antibody Scrn) PM) [facility] [id number] 00:36:00 Test Item Value Reference Range Interpretation Comments Glucose Lvl (test code = Glucose Lvl) 143 70-99 [facility] [id number] 00:36:00 Test Item Value Reference Range Interpretation Comments BUN (test code = BUN) 39 7-22 [facility] [id number] 00:36:00 Test Item Value Reference Range Interpretation Comments Creatinine Lvl (test code = Creatinine 5.46 0.50-1.40 Lvl) [facility] [id number] 00:36:00 Test Item Value Reference Range Interpretation Comments Sodium Lvl (test code = Sodium Lvl) 136 135-145 [facility] [id number] 00:36:00 Test Item Value Reference Range Interpretation Comments Potassium Lvl (test code = Potassium 4.2 3.5-5.1 Lvl) [facility] [id number] 00:36:00 Test Item Value Reference Range Interpretation Comments Chloride Lvl (test code = Chloride Lvl) 100 95-109 [facility] [id number] 00:36:00 Test Item Value Reference Range Interpretation Comments CO2 (test code = CO2) 27 24-32 [facility]2022-07-07 00:36:00 Test Item Value Reference Range Interpretation Comments Calcium Lvl (test code = Calcium Lvl) 8.9 8.5-10.5 [facility]2022-07-07 00:36:00 Test Item Value Reference Range Interpretation Comments AGAP (test code = AGAP) 13.2 10.0-20.0 [facility]2022-07-07 00:36:00 Test Item Value Reference Range Interpretation Comments eGFR (test code = eGFR) 10 [facility]villeVyvabijWHQZYEIHTD5484-91-18 00:36:00 Test Item Value Reference Range Interpretation Comments WBC (test code = WBC) 2.5 3.7-10.4 [facility] GreenvilleIcdnblwTAGVZIBIED1721-23-48 00:36:00 Test Item Value Reference Range Interpretation Comments RBC (test code = RBC) 1.97 4.70-6.10 [facility] GreenvilleJmqvwfuJJSYGBYZQB2350-00-07 00:36:00 Test Item Value Reference Range Interpretation Comments Hgb (test code = Hgb) 7.1 14.0-18.0 [place] 796562-07-07 00:36:00 Test Item Value Reference Range Interpretation Comments Hct (test code = Hct) 20.6 42.0-54.0 [place] 796562-07-07 00:36:00 Test Item Value Reference Range Interpretation Comments MCV (test code = MCV) 105.0 80.0-94.0 [facility] GreenvilleOfaiinhXEHUGMGJHO2312-09-87 00:36:00 Test Item Value Reference Range Interpretation Comments MCH (test code = MCH) 36.2 pg 27.0-31.0 [facility] GreenvilleIqngemjLVFJQLKUYV3268-90-10 00:36:00 Test Item Value Reference Range Interpretation Comments MCHC (test code = MCHC) 34.5 32.0-36.0 [place] 796562-07-07 00:36:00 Test Item Value Reference Range Interpretation Comments RDW (test code = RDW) 21.1 11.5-14.5 [place] 796562-07-07 00:36:00 Test Item Value Reference Range Interpretation Comments Platelet (test code = Platelet) 136 133-450 [facility] GreenvilleDokproiCGCEXZIVPH5703-94-45 00:36:00 Test Item Value Reference Range Interpretation Comments MPV (test code = MPV) 8.7 7.4-10.4 [place] 796562-07-07 00:36:00 Test Item Value Reference Range Interpretation Comments Segs (test code = Segs) 59.5 45.0-75.0 [place] 796562-07-07 00:36:00 Test Item Value Reference Range Interpretation Comments Lymphocytes (test code = Lymphocytes) 25.2 20.0-40.0 [place] 796562-07-07 00:36:00 Test Item Value Reference Range Interpretation Comments Monocytes (test code = Monocytes) 12.5 2.0-12.0 [facility] GreenvilleIfhletyFVZBZJZGAA7244-14-07 00:36:00 Test Item Value Reference Range Interpretation Comments Eosinophils (test code = 2.1 See_Comment [A utomated message] The Eosinophils) system which ge nerated this result tra nsmitted reference range : <=4.0. The reference r samantha was not used to int erpret this result as normal/abnormal . [facility] GreenvilleHumjextCOUKVNMLRY3302-73-62 00:36:00 Test Item Value Reference Range Interpretation Comments Basophils (test code = 0.7 See_Comment [Aut omated message] The Basophils) system which ge nerated this result tra nsmitted reference range : <=1.0. The reference r samantah was not used to int erpret this result as normal/abnormal . [place] 796562-07-07 00:36:00 Test Item Value Reference Range Interpretation Comments Neutrophils # (test code = Neutrophils 1.5 1.5-8.1 #) [place] 796562-07-07 00:36:00 Test Item Value Reference Range Interpretation Comments Lymphocytes # (test code = Lymphocytes 0.6 1.0-5.5 #) [place] 796562-07-07 00:36:00 Test Item Value Reference Range Interpretation Comments Monocytes # (test code 0.3 See_Comment [Aut omated message] The = Monocytes #) system which generated this result tra nsmitted reference range : <=0.8. The reference r samantha was not used to int erpret this result as normal/abnormal . [place] 796562-07-07 00:36:00 Test Item Value Reference Range Interpretation Comments Eosinophils # (test code 0.1 See_Comment [A utomated message] The = Eosinophils #) system whic h generated this result tra nsmitted reference range : <=0.5. The reference r samantha was not used to int erpret this result as normal/abnormal . [facility] [employer] [id number] 00:36:00 Test Item Value Reference Range Interpretation Comments ABO/Rh (test code = ABO/Rh) AB POS [facility] [employer] [id number] 00:36:00 Test Item Value Reference Range Interpretation Comments Antibody Scrn (test Negative (12/03/21 7:36 code = Antibody Scrn) PM) [facility] [employer] [id number] 00:36:00 Test Item Value Reference Range Interpretation Comments Glucose Lvl (test code = Glucose Lvl) 143 70-[address] [facility] [employer] [id number] 00:36:00 Test Item Value Reference Range Interpretation Comments BUN (test code = BUN) 39 7-[address] [facility] [employer] [id number] 00:36:00 Test Item Value Reference Range Interpretation Comments Creatinine Lvl (test code = Creatinine 5.46 0.50-1.40 Lvl) [facility] [employer]2022-07-07 00:36:00 Test Item Value Reference Range Interpretation Comments Sodium Lvl (test code = Sodium Lvl) 136 135-[address] [facility] [employer] [id number] 00:36:00 Test Item Value Reference Range Interpretation Comments Potassium Lvl (test code = Potassium 4.2 3.5-5.1 Lvl) [facility] [employer]2022-07-07 00:36:00 Test Item Value Reference Range Interpretation Comments Chloride Lvl (test code = Chloride Lvl) 100 95-[address] [facility] [employer]2022-07-07 00:36:00 Test Item Value Reference Range Interpretation Comments CO2 (test code = CO2) 27 24-32 [facility]2022-07-07 00:36:00 Test Item Value Reference Range Interpretation Comments Calcium Lvl (test code = Calcium Lvl) 8.9 8.5-10.[address] [facility] [employer] [id number] 00:36:00 Test Item Value Reference Range Interpretation Comments AGAP (test code = AGAP) 13.2 10.0-20.0 [facility]2022-07-07 00:36:00 Test Item Value Reference Range Interpretation Comments eGFR (test code = eGFR) 10 [facility] GreenvilleZjlotzqMCJPNFCQTO0330-37-23 00:36:00 Test Item Value Reference Range Interpretation Comments WBC (test code = WBC) 2.5 3.7-10.4 [place] 796562-07-07 00:36:00 Test Item Value Reference Range Interpretation Comments RBC (test code = RBC) 1.97 4.70-6.10 [facility] GreenvilleRkvponrPGNNUTRTJH5286-18-05 00:36:00 Test Item Value Reference Range Interpretation Comments Hgb (test code = Hgb) 7.1 14.0-18.0 [place] 796562-07-07 00:36:00 Test Item Value Reference Range Interpretation Comments Hct (test code = Hct) 20.6 42.0-54.0 [facility] GreenvilleKfptcjuHJESFDRZIX4573-49-39 00:36:00 Test Item Value Reference Range Interpretation Comments MCV (test code = MCV) 105.0 80.0-94.0 [place] 796562-07-07 00:36:00 Test Item Value Reference Range Interpretation Comments MCH (test code = MCH) 36.2 pg 27.0-31.0 [facility] GreenvilleLngnnxhRQDQODNFXE0119-32-87 00:36:00 Test Item Value Reference Range Interpretation Comments MCHC (test code = MCHC) 34.5 32.0-36.0 [facility] GreenvilleOxozlmyKYEEVITGJO6765-05-92 00:36:00 Test Item Value Reference Range Interpretation Comments RDW (test code = RDW) 21.1 11.5-14.5 [place] 796562-07-07 00:36:00 Test Item Value Reference Range Interpretation Comments Platelet (test code = Platelet) 136 133-450 [facility] GreenvilleUxwpaemMIHYFMGFWG1503-34-84 00:36:00 Test Item Value Reference Range Interpretation Comments MPV (test code = MPV) 8.7 7.4-10.4 [facility] GreenvilleSiknhrnXFMKLAGUBL4672-67-36 00:36:00 Test Item Value Reference Range Interpretation Comments Segs (test code = Segs) 59.5 45.0-75.0 [facility] GreenvilleOdgdlqoGSCIQXQOQC9432-23-00 00:36:00 Test Item Value Reference Range Interpretation Comments Lymphocytes (test code = Lymphocytes) 25.2 20.0-40.0 [facility] GreenvilleCyjgvhpNLXUBRYGOT3872-83-46 00:36:00 Test Item Value Reference Range Interpretation Comments Monocytes (test code = Monocytes) 12.5 2.0-12.0 [facility] [facility]FtjuwpjGCXBVJQPNH8240-75-55 00:36:00 Test Item Value Reference Range Interpretation Comments Eosinophils (test code = 2.1 See_Comment [A utomated message] The Eosinophils) system which ge nerated this result tra nsmitted reference range : <=4.0. The reference r samantha was not used to int erpret this result as normal/abnormal . [facility]VjpeffzEPLGOOVPBA1775-55-16 00:36:00 Test Item Value Reference Range Interpretation Comments Basophils (test code = 0.7 See_Comment [Aut omated message] The Basophils) system which ge nerated this result tra nsmitted reference range : <=1.0. The reference r samantha was not used to int erpret this result as normal/abnormal . [facility] [place]villeYulnzikNLIMVUDLNJ4747-09-01 00:36:00 Test Item Value Reference Range Interpretation Comments Neutrophils # (test code = Neutrophils 1.5 1.5-8.1 #) [facility]villeLultoqeHGNHWCLJNG4760-04-05 00:36:00 Test Item Value Reference Range Interpretation Comments Lymphocytes # (test code = Lymphocytes 0.6 1.0-5.5 #) [facility] [place]villeUkdcusiKLGQRBOFKD6510-22-28 00:36:00 Test Item Value Reference Range Interpretation Comments Monocytes # (test code 0.3 See_Comment [Aut omated message] The = Monocytes #) system which generated this result tra nsmitted reference range : <=0.8. The reference r samantha was not used to int erpret this result as normal/abnormal . [facility] [place]villeDbtmjigHLHMEEKUPF2759-34-41 00:36:00 Test Item Value Reference Range Interpretation Comments Eosinophils # (test code 0.1 See_Comment [A utomated message] The = Eosinophils #) system whic h generated this result tra nsmitted reference range : <=0.5. The reference r samantha was not used to int erpret this result as normal/abnormal . [facility] GXJOTYX0487-58-25 00:36:00 Test Item Value Reference Range Interpretation Comments ABO/Rh (test code = ABO/Rh) AB POS [facility] GWUWDSS5552-07-18 00:36:00 Test Item Value Reference Range Interpretation Comments Antibody Scrn (test Negative (12/03/21 7:36 code = Antibody Scrn) PM) [facility]2022-07-07 00:36:00 Test Item Value Reference Range Interpretation Comments Glucose Lvl (test code = Glucose Lvl) 143 70-99 [facility]2022-07-07 00:36:00 Test Item Value Reference Range Interpretation Comments BUN (test code = BUN) 39 7-22 [facility]2022-07-07 00:36:00 Test Item Value Reference Range Interpretation Comments Creatinine Lvl (test code = Creatinine 5.46 0.50-1.40 Lvl) [facility]2022-07-07 00:36:00 Test Item Value Reference Range Interpretation Comments Sodium Lvl (test code = Sodium Lvl) 136 135-145 [facility]2022-07-07 00:36:00 Test Item Value Reference Range Interpretation Comments Potassium Lvl (test code = Potassium 4.2 3.5-5.1 Lvl) [facility]2022-07-07 00:36:00 Test Item Value Reference Range Interpretation Comments Chloride Lvl (test code = Chloride Lvl) 100 95-109 [facility]2022-07-07 00:36:00 Test Item Value Reference Range Interpretation Comments CO2 (test code = CO2) 27 24-32 [facility]2022-07-07 00:36:00 Test Item Value Reference Range Interpretation Comments Calcium Lvl (test code = Calcium Lvl) 8.9 8.5-10.5 [facility]2022-07-07 00:36:00 Test Item Value Reference Range Interpretation Comments AGAP (test code = AGAP) 13.2 10.0-20.0 [facility]2022-07-07 00:36:00 Test Item Value Reference Range Interpretation Comments eGFR (test code = eGFR) 10 [facility]villeHwxvqqaAIUFIAIVAI7705-57-86 00:36:00 Test Item Value Reference Range Interpretation Comments WBC (test code = WBC) 2.5 3.7-10.4 [facility] [place]villeWbfnodeXNEEHTXHUP0635-51-68 00:36:00 Test Item Value Reference Range Interpretation Comments RBC (test code = RBC) 1.97 4.70-6.10 [facility] [place]villeJmdxebxNMEJPGVIXM4566-25-46 00:36:00 Test Item Value Reference Range Interpretation Comments Hgb (test code = Hgb) 7.1 14.0-18.0 [facility] [place]villeMycdvwpUKQFPDFKPJ5391-28-18 00:36:00 Test Item Value Reference Range Interpretation Comments Hct (test code = Hct) 20.6 42.0-54.0 [place]6562-07-07 00:36:00 Test Item Value Reference Range Interpretation Comments MCV (test code = MCV) 105.0 80.0-94.0 [facility]villeSjgcnwfUCCGDKGOGT5467-74-27 00:36:00 Test Item Value Reference Range Interpretation Comments MCH (test code = MCH) 36.2 pg 27.0-31.0 [facility] [place]villeTxvnzxvHIOEDETVEH6942-91-75 00:36:00 Test Item Value Reference Range Interpretation Comments MCHC (test code = MCHC) 34.5 32.0-36.0 [place] 796562-07-07 00:36:00 Test Item Value Reference Range Interpretation Comments RDW (test code = RDW) 21.1 11.5-14.5 [place] 796562-07-07 00:36:00 Test Item Value Reference Range Interpretation Comments Platelet (test code = Platelet) 136 133-450 [facility] [place]villeKcdjkpaSPEYZXXXEW0177-49-62 00:36:00 Test Item Value Reference Range Interpretation Comments MPV (test code = MPV) 8.7 7.4-10.4 [place] 796562-07-07 00:36:00 Test Item Value Reference Range Interpretation Comments Segs (test code = Segs) 59.5 45.0-75.0 [place] 796562-07-07 00:36:00 Test Item Value Reference Range Interpretation Comments Lymphocytes (test code = Lymphocytes) 25.2 20.0-40.0 [place] 796562-07-07 00:36:00 Test Item Value Reference Range Interpretation Comments Monocytes (test code = Monocytes) 12.5 2.0-12.0 [place] 796562-07-07 00:36:00 Test Item Value Reference Range Interpretation Comments Eosinophils (test code = 2.1 See_Comment [A utomated message] The Eosinophils) system which ge nerated this result tra nsmitted reference range : <=4.0. The reference r samantha was not used to int erpret this result as normal/abnormal . [facility] CenterLlgivrfJWNTQQHWHJ1794-14-07 00:36:00 Test Item Value Reference Range Interpretation Comments Basophils (test code = 0.7 See_Comment [Aut omated message] The Basophils) system which ge nerated this result tra nsmitted reference range : <=1.0. The reference r samantha was not used to int erpret this result as normal/abnormal . [facility] CenterBzwoxclHZAEAVTJDJ3586-32-42 00:36:00 Test Item Value Reference Range Interpretation Comments Neutrophils # (test code = Neutrophils 1.5 1.5-8.1 #) [facility] [place]villeZduxaqySXLYJTFRCL2051-83-96 00:36:00 Test Item Value Reference Range Interpretation Comments Lymphocytes # (test code = Lymphocytes 0.6 1.0-5.5 #) [facility] [place]villeYajbhpsJCPIBYNKWG6313-59-12 00:36:00 Test Item Value Reference Range Interpretation Comments Monocytes # (test code 0.3 See_Comment [Aut omated message] The = Monocytes #) system which generated this result tra nsmitted reference range : <=0.8. The reference r samantha was not used to int erpret this result as normal/abnormal . [facility] CenterEdsnulpROJEKZQRWT1261-60-62 00:36:00 Test Item Value Reference Range Interpretation Comments Eosinophils # (test code 0.1 See_Comment [A utomated message] The = Eosinophils #) system whic h generated this result tra nsmitted reference range : <=0.5. The reference r samantha was not used to int erpret this result as normal/abnormal . [facility] [employer] DTCYKMA9187-07-79 00:36:00 Test Item Value Reference Range Interpretation Comments ABO/Rh (test code = ABO/Rh) AB POS [facility] [employer] KRUQCEV3389-76-37 00:36:00 Test Item Value Reference Range Interpretation Comments Antibody Scrn (test Negative (12/03/21 7:36 code = Antibody Scrn) PM) [facility] [employer] JZLKW8554-01-57 00:36:00 Test Item Value Reference Range Interpretation Comments Glucose Lvl (test code = Glucose Lvl) 143 70-99 [place] 509392-07-07 00:36:00 Test Item Value Reference Range Interpretation Comments BUN (test code = BUN) 39 7-22 [place] 509392-07-07 00:36:00 Test Item Value Reference Range Interpretation Comments Creatinine Lvl (test code = Creatinine 5.46 0.50-1.40 Lvl) [place] 509392-07-07 00:36:00 Test Item Value Reference Range Interpretation Comments Sodium Lvl (test code = Sodium Lvl) 136 135-145 [place] 509392-07-07 00:36:00 Test Item Value Reference Range Interpretation Comments Potassium Lvl (test code = Potassium 4.2 3.5-5.1 Lvl) [place] 509392-07-07 00:36:00 Test Item Value Reference Range Interpretation Comments Chloride Lvl (test code = Chloride Lvl) 100 95-109 [place] 509392-07-07 00:36:00 Test Item Value Reference Range Interpretation Comments CO2 (test code = CO2) 27 24-32 [place] 509392-07-07 00:36:00 Test Item Value Reference Range Interpretation Comments Calcium Lvl (test code = Calcium Lvl) 8.9 8.5-10.5 [place] 509392-07-07 00:36:00 Test Item Value Reference Range Interpretation Comments AGAP (test code = AGAP) 13.2 10.0-20.0 [place] 509392-07-07 00:36:00 Test Item Value Reference Range Interpretation Comments eGFR (test code = eGFR) 10 [place] 796562-07-07 00:36:00 Test Item Value Reference Range Interpretation Comments WBC (test code = WBC) 2.5 3.7-10.4 [place] 796562-07-07 00:36:00 Test Item Value Reference Range Interpretation Comments RBC (test code = RBC) 1.97 4.70-6.10 [place] 796562-07-07 00:36:00 Test Item Value Reference Range Interpretation Comments Hgb (test code = Hgb) 7.1 14.0-18.0 [place] 796562-07-07 00:36:00 Test Item Value Reference Range Interpretation Comments Hct (test code = Hct) 20.6 42.0-54.0 [facility]villeLrezclrIVQOFQUFZP2593-33-65 00:36:00 Test Item Value Reference Range Interpretation Comments MCV (test code = MCV) 105.0 80.0-94.0 [facility] [place]villeJbzugwxWFBBPTFFEB4471-37-96 00:36:00 Test Item Value Reference Range Interpretation Comments MCH (test code = MCH) 36.2 pg 27.0-31.0 [facility]villeKdglcvfXOQMMCOFPC2548-39-91 00:36:00 Test Item Value Reference Range Interpretation Comments MCHC (test code = MCHC) 34.5 32.0-36.0 [facility] [place]villeUivqrdcHXHILKMMKE2080-69-79 00:36:00 Test Item Value Reference Range Interpretation Comments RDW (test code = RDW) 21.1 11.5-14.5 [facility] [place]villeXycaylsBHVWELLWAS1706-71-53 00:36:00 Test Item Value Reference Range Interpretation Comments Platelet (test code = Platelet) 136 133-450 [facility] [place]villeJlztsmrZWWRMOGSDL6755-50-78 00:36:00 Test Item Value Reference Range Interpretation Comments MPV (test code = MPV) 8.7 7.4-10.4 [facility] GreenvilleItaukcnJDDOJJNLOQ3385-54-16 00:36:00 Test Item Value Reference Range Interpretation Comments Segs (test code = Segs) 59.5 45.0-75.0 [facility] [place]villeQrkqtdcDUZBIPRVSR0100-50-76 00:36:00 Test Item Value Reference Range Interpretation Comments Lymphocytes (test code = Lymphocytes) 25.2 20.0-40.0 [facility] GreenvilleFakfedyORJIYRLBPK3433-37-83 00:36:00 Test Item Value Reference Range Interpretation Comments Monocytes (test code = Monocytes) 12.5 2.0-12.0 [place] 796562-07-07 00:36:00 Test Item Value Reference Range Interpretation Comments Eosinophils (test code = 2.1 See_Comment [A utomated message] The Eosinophils) system which ge nerated this result tra nsmitted reference range : <=4.0. The reference r samantha was not used to int erpret this result as normal/abnormal . [facility] [place]villeWhmofjlENNTGYHHBH0894-33-42 00:36:00 Test Item Value Reference Range Interpretation Comments Basophils (test code = 0.7 See_Comment [Aut omated message] The Basophils) system which ge nerated this result tra nsmitted reference range : <=1.0. The reference r samantha was not used to int erpret this result as normal/abnormal . [facility] [place]villeCxhndedSOFYTMWKCO1896-56-97 00:36:00 Test Item Value Reference Range Interpretation Comments Neutrophils # (test code = Neutrophils 1.5 1.5-8.1 #) [facility]villeCjieeetJHUEDQJPSU5576-31-74 00:36:00 Test Item Value Reference Range Interpretation Comments Lymphocytes # (test code = Lymphocytes 0.6 1.0-5.5 #) [facility] [place]villePiefncwGBLVLYFOEC2126-82-61 00:36:00 Test Item Value Reference Range Interpretation Comments Monocytes # (test code 0.3 See_Comment [Aut omated message] The = Monocytes #) system which generated this result tra nsmitted reference range : <=0.8. The reference r samantha was not used to int erpret this result as normal/abnormal . [facility]villeFwkzxamKXAJLVSMLC2356-64-84 00:36:00 Test Item Value Reference Range Interpretation Comments Eosinophils # (test code 0.1 See_Comment [A utomated message] The = Eosinophils #) system whic h generated this result tra nsmitted reference range : <=0.5. The reference r samantha was not used to int erpret this result as normal/abnormal . [facility] AISNUXO2807-88-01 00:36:00 Test Item Value Reference Range Interpretation Comments ABO/Rh (test code = ABO/Rh) AB POS [facility] VUTDUBW0836-84-03 00:36:00 Test Item Value Reference Range Interpretation Comments Antibody Scrn (test Negative (12/03/21 7:36 code = Antibody Scrn) PM) [facility] CenterPlay[facility] [id number] 00:36:00 Test Item Value Reference Range Interpretation Comments Glucose Lvl (test code = Glucose Lvl) 143 70-99 [facility] BJWHZ5783-36-36 00:36:00 Test Item Value Reference Range Interpretation Comments BUN (test code = BUN) 39 7-22 [facility] FLVRE0727-57-56 00:36:00 Test Item Value Reference Range Interpretation Comments Creatinine Lvl (test code = Creatinine 5.46 0.50-1.40 Lvl) [facility] ZCQKQ0294-81-40 00:36:00 Test Item Value Reference Range Interpretation Comments Sodium Lvl (test code = Sodium Lvl) 136 135-145 [place] 509392-07-07 00:36:00 Test Item Value Reference Range Interpretation Comments Potassium Lvl (test code = Potassium 4.2 3.5-5.1 Lvl) [place] 509392-07-07 00:36:00 Test Item Value Reference Range Interpretation Comments Chloride Lvl (test code = Chloride Lvl) 100 95-109 [place] 509392-07-07 00:36:00 Test Item Value Reference Range Interpretation Comments CO2 (test code = CO2) 27 24-32 [place] 509392-07-07 00:36:00 Test Item Value Reference Range Interpretation Comments Calcium Lvl (test code = Calcium Lvl) 8.9 8.5-10.5 [place] 509392-07-07 00:36:00 Test Item Value Reference Range Interpretation Comments AGAP (test code = AGAP) 13.2 10.0-20.0 [place] 509392-07-07 00:36:00 Test Item Value Reference Range Interpretation Comments eGFR (test code = eGFR) 10 [facility] GreenvilleQjasccdYOGQRLFRER6665-24-88 00:36:00 Test Item Value Reference Range Interpretation Comments WBC (test code = WBC) 2.5 3.7-10.4 [place] 796562-07-07 00:36:00 Test Item Value Reference Range Interpretation Comments RBC (test code = RBC) 1.97 4.70-6.10 [place] 796562-07-07 00:36:00 Test Item Value Reference Range Interpretation Comments Hgb (test code = Hgb) 7.1 14.0-18.0 [place] 796562-07-07 00:36:00 Test Item Value Reference Range Interpretation Comments Hct (test code = Hct) 20.6 42.0-54.0 [place] 796562-07-07 00:36:00 Test Item Value Reference Range Interpretation Comments MCV (test code = MCV) 105.0 80.0-94.0 [place] 796562-07-07 00:36:00 Test Item Value Reference Range Interpretation Comments MCH (test code = MCH) 36.2 pg 27.0-31.0 [facility] SurgeryOaumgdfIVHJPTCRPK8496-67-14 00:36:00 Test Item Value Reference Range Interpretation Comments MCHC (test code = MCHC) 34.5 32.0-36.0 [facility] CenterXxrxhkqXZGKLSZTDJ2381-44-39 00:36:00 Test Item Value Reference Range Interpretation Comments RDW (test code = RDW) 21.1 11.5-14.[address] [facility] [employer] MTBQPSL9861-06-48 00:36:00 Test Item Value Reference Range Interpretation Comments ABO/Rh (test code = ABO/Rh) AB POS [facility] RIWI [facility] WZWGMBZ5094-40-92 00:36:00 Test Item Value Reference Range Interpretation Comments Antibody Scrn (test Negative (12/03/21 7:36 code = Antibody Scrn) PM) [facility] [employer] [id number] 00:36:00 Test Item Value Reference Range Interpretation Comments Glucose Lvl (test code = Glucose Lvl) 143 70-[address] [facility] [employer] DGNFZ8927-06-29 00:36:00 Test Item Value Reference Range Interpretation Comments BUN (test code = BUN) 39 7-[address] [facility] [employer] [id number] 00:36:00 Test Item Value Reference Range Interpretation Comments Creatinine Lvl (test code = Creatinine 5.46 0.50-1.40 Lvl) [facility] [employer] [id number] 00:36:00 Test Item Value Reference Range Interpretation Comments Sodium Lvl (test code = Sodium Lvl) 136 135-[address] [facility] [employer] [id number] 00:36:00 Test Item Value Reference Range Interpretation Comments Potassium Lvl (test code = Potassium 4.2 3.5-5.1 Lvl) [facility] [employer] [id number] 00:36:00 Test Item Value Reference Range Interpretation Comments Chloride Lvl (test code = Chloride Lvl) 100 95-[address] [facility] [employer] [id number] 00:36:00 Test Item Value Reference Range Interpretation Comments CO2 (test code = CO2) 27 24-32 [facility] UIPOJ1831-72-16 00:36:00 Test Item Value Reference Range Interpretation Comments Calcium Lvl (test code = Calcium Lvl) 8.9 8.5-10.5 [facility] HospitalXvaupseVUSQSOGASW6684-41-17 00:36:00 Test Item Value Reference Range Interpretation Comments Platelet (test code = Platelet) 136 133-450 [facility] [id number] 00:36:00 Test Item Value Reference Range Interpretation Comments AGAP (test code = AGAP) 13.2 10.0-20.0 [facility] [id number] 00:36:00 Test Item Value Reference Range Interpretation Comments eGFR (test code = eGFR) 10 [facility]villeMbjfwdqPQRWLPUYFG8638-99-74 00:36:00 Test Item Value Reference Range Interpretation Comments WBC (test code = WBC) 2.5 3.7-10.4 [facility] GreenvilleLfaqoioVQPOAYLBNP9788-99-02 00:36:00 Test Item Value Reference Range Interpretation Comments RBC (test code = RBC) 1.97 4.70-6.10 [facility] GreenvilleJdemrvaHZTBDCJXYI4597-80-73 00:36:00 Test Item Value Reference Range Interpretation Comments Hgb (test code = Hgb) 7.1 14.0-18.0 [facility] GreenvilleEavyribALPWALGRUE0484-67-27 00:36:00 Test Item Value Reference Range Interpretation Comments Hct (test code = Hct) 20.6 42.0-54.0 [facility] GreenvilleLwdqpdgKQVGYIDOWC4708-99-84 00:36:00 Test Item Value Reference Range Interpretation Comments MCV (test code = MCV) 105.0 80.0-94.0 [facility] GreenvilleFivriwaFMZXUVRFOP2450-43-20 00:36:00 Test Item Value Reference Range Interpretation Comments MCH (test code = MCH) 36.2 pg 27.0-31.0 [facility] [place]villeHexczcfIGMDCRPHWZ1709-80-24 00:36:00 Test Item Value Reference Range Interpretation Comments MCHC (test code = MCHC) 34.5 32.0-36.0 [facility] GreenvilleOsophrjFNIHLQDEHU5553-14-21 00:36:00 Test Item Value Reference Range Interpretation Comments RDW (test code = RDW) 21.1 11.5-14.5 [facility] [place]villeOzfjwtkNYVDKEYKQL5588-97-45 00:36:00 Test Item Value Reference Range Interpretation Comments MPV (test code = MPV) 8.7 7.4-10.4 [facility] [place]villeXrkwkitLTBKCCMCSI0800-12-75 00:36:00 Test Item Value Reference Range Interpretation Comments Platelet (test code = Platelet) 136 133-450 [facility] GreenvilleDjbekbvEOIBYZUGKP1678-52-19 00:36:00 Test Item Value Reference Range Interpretation Comments MPV (test code = MPV) 8.7 7.4-10.4 [facility]villeEtynvfnZNITFTSXVR7807-83-85 00:36:00 Test Item Value Reference Range Interpretation Comments Segs (test code = Segs) 59.5 45.0-75.0 [facility] GreenvillePunsolgXHNVPSUFUX1129-69-41 00:36:00 Test Item Value Reference Range Interpretation Comments Lymphocytes (test code = Lymphocytes) 25.2 20.0-40.0 [place] 796562-07-07 00:36:00 Test Item Value Reference Range Interpretation Comments Monocytes (test code = Monocytes) 12.5 2.0-12.0 [facility] GreenvilleRbaftdsKTPBFDNHMH9281-79-74 00:36:00 Test Item Value Reference Range Interpretation Comments Eosinophils (test code = 2.1 See_Comment [A utomated message] The Eosinophils) system which ge nerated this result tra nsmitted reference range : <=4.0. The reference r samantha was not used to int erpret this result as normal/abnormal . [facility]villeSwekxxjMDQNIOEISO4684-40-04 00:36:00 Test Item Value Reference Range Interpretation Comments Basophils (test code = 0.7 See_Comment [Aut omated message] The Basophils) system which ge nerated this result tra nsmitted reference range : <=1.0. The reference r samantha was not used to int erpret this result as normal/abnormal . [facility] GreenvilleQyuuhhtAKYLZVTROJ2811-70-98 00:36:00 Test Item Value Reference Range Interpretation Comments Neutrophils # (test code = Neutrophils 1.5 1.5-8.1 #) [facility] GreenvilleIrigkuaAPWSLTBEAY2415-11-24 00:36:00 Test Item Value Reference Range Interpretation Comments Lymphocytes # (test code = Lymphocytes 0.6 1.0-5.5 #) [place] 796562-07-07 00:36:00 Test Item Value Reference Range Interpretation Comments Monocytes # (test code 0.3 See_Comment [Aut omated message] The = Monocytes #) system which generated this result tra nsmitted reference range : <=0.8. The reference r samantha was not used to int erpret this result as normal/abnormal . [place] 796562-07-07 00:36:00 Test Item Value Reference Range Interpretation Comments Segs (test code = Segs) 59.5 45.0-75.0 [facility] GreenvilleQseerdvAHEYPMIKGP7704-58-53 00:36:00 Test Item Value Reference Range Interpretation Comments Eosinophils # (test code 0.1 See_Comment [A utomated message] The = Eosinophils #) system whic h generated this result tra nsmitted reference range : <=0.5. The reference r samantha was not used to int erpret this result as normal/abnormal . [facility] GreenvilleJxifumsCCJQKIDMYD6036-91-19 00:36:00 Test Item Value Reference Range Interpretation Comments Lymphocytes (test code = Lymphocytes) 25.2 20.0-40.0 [facility]villeLuvkwjqSRZSVCIEEI8588-87-00 00:36:00 Test Item Value Reference Range Interpretation Comments Monocytes (test code = Monocytes) 12.5 2.0-12.0 [facility] [place]villeJywlwjqRVYPLGJVMM6540-17-61 00:36:00 Test Item Value Reference Range Interpretation Comments Eosinophils (test code = 2.1 See_Comment [A utomated message] The Eosinophils) system which ge nerated this result tra nsmitted reference range : <=4.0. The reference r samantha was not used to int erpret this result as normal/abnormal . [facility]villePxfubiyCRYIORTGTK4956-41-81 00:36:00 Test Item Value Reference Range Interpretation Comments Basophils (test code = 0.7 See_Comment [Aut omated message] The Basophils) system which ge nerated this result tra nsmitted reference range : <=1.0. The reference r samantha was not used to int erpret this result as normal/abnormal . [facility] GreenvilleYucgfiyHAWXQPXQOT3247-01-90 00:36:00 Test Item Value Reference Range Interpretation Comments Neutrophils # (test code = Neutrophils 1.5 1.5-8.1 #) [facility]villeKlgxhqoIOBLDNFBIL4335-57-81 00:36:00 Test Item Value Reference Range Interpretation Comments Lymphocytes # (test code = Lymphocytes 0.6 1.0-5.5 #) [facility]villeTvwrwjmGJYEOBYDBZ0595-56-30 00:36:00 Test Item Value Reference Range Interpretation Comments Monocytes # (test code 0.3 See_Comment [Aut omated message] The = Monocytes #) system which generated this result tra nsmitted reference range : <=0.8. The reference r samantha was not used to int erpret this result as normal/abnormal . [facility]RqwhlfpWSOGSLWBBI0695-57-95 00:36:00 Test Item Value Reference Range Interpretation Comments Eosinophils # (test code 0.1 See_Comment [A utomated message] The = Eosinophils #) system whic h generated this result tra nsmitted reference range : <=0.5. The reference r samantha was not used to int erpret this result as normal/abnormal . [facility] [employer] [id number] 00:36:00 Test Item Value Reference Range Interpretation Comments ABO/Rh (test code = ABO/Rh) AB POS [facility] RIWI [facility] [id number] 00:36:00 Test Item Value Reference Range Interpretation Comments Antibody Scrn (test Negative (12/03/21 7:36 code = Antibody Scrn) PM) [facility] [employer] [id number] 00:36:00 Test Item Value Reference Range Interpretation Comments Glucose Lvl (test code = Glucose Lvl) 143 70-[address] [facility] [employer] [id number] 00:36:00 Test Item Value Reference Range Interpretation Comments BUN (test code = BUN) 39 7-[address] [facility] [employer] [id number] 00:36:00 Test Item Value Reference Range Interpretation Comments Creatinine Lvl (test code = Creatinine 5.46 0.50-1.40 Lvl) [facility] [employer] [id number] 00:36:00 Test Item Value Reference Range Interpretation Comments Sodium Lvl (test code = Sodium Lvl) 136 135-[address] [facility] [employer] [id number] 00:36:00 Test Item Value Reference Range Interpretation Comments Potassium Lvl (test code = Potassium 4.2 3.5-5.1 Lvl) [facility] [employer] [id number] 00:36:00 Test Item Value Reference Range Interpretation Comments Chloride Lvl (test code = Chloride Lvl) 100 95-[address] [facility] [employer] [id number] 00:36:00 Test Item Value Reference Range Interpretation Comments CO2 (test code = CO2) 27 24-[address] [facility] [employer] [id number] 00:36:00 Test Item Value Reference Range Interpretation Comments Calcium Lvl (test code = Calcium Lvl) 8.9 8.5-10.5 [facility]2022-07-07 00:36:00 Test Item Value Reference Range Interpretation Comments AGAP (test code = AGAP) 13.2 10.0-20.0 [facility]2022-07-07 00:36:00 Test Item Value Reference Range Interpretation Comments eGFR (test code = eGFR) 10 [facility]villeAxsdvoyFSQBDMBMMO7565-08-42 00:36:00 Test Item Value Reference Range Interpretation Comments WBC (test code = WBC) 2.5 3.7-10.4 [facility] GreenvilleHoyalihXZJNENOMVY4292-82-12 00:36:00 Test Item Value Reference Range Interpretation Comments RBC (test code = RBC) 1.97 4.70-6.10 [place] 796562-07-07 00:36:00 Test Item Value Reference Range Interpretation Comments Hgb (test code = Hgb) 7.1 14.0-18.0 [place] 796562-07-07 00:36:00 Test Item Value Reference Range Interpretation Comments Hct (test code = Hct) 20.6 42.0-54.0 [place] 796562-07-07 00:36:00 Test Item Value Reference Range Interpretation Comments MCV (test code = MCV) 105.0 80.0-94.0 [place] 796562-07-07 00:36:00 Test Item Value Reference Range Interpretation Comments MCH (test code = MCH) 36.2 pg 27.0-31.0 [place] 796562-07-07 00:36:00 Test Item Value Reference Range Interpretation Comments MCHC (test code = MCHC) 34.5 32.0-36.0 [facility] GreenvilleNrzbmaaUUFPHLEQEP0355-11-54 00:36:00 Test Item Value Reference Range Interpretation Comments RDW (test code = RDW) 21.1 11.5-14.5 [place] 796562-07-07 00:36:00 Test Item Value Reference Range Interpretation Comments Platelet (test code = Platelet) 136 133-450 [facility] GreenvilleBymwfymPQUIFPYMUU3951-37-85 00:36:00 Test Item Value Reference Range Interpretation Comments MPV (test code = MPV) 8.7 7.4-10.4 [place] 796562-07-07 00:36:00 Test Item Value Reference Range Interpretation Comments Segs (test code = Segs) 59.5 45.0-75.0 [place] 796562-07-07 00:36:00 Test Item Value Reference Range Interpretation Comments Lymphocytes (test code = Lymphocytes) 25.2 20.0-40.0 [place] 796562-07-07 00:36:00 Test Item Value Reference Range Interpretation Comments Monocytes (test code = Monocytes) 12.5 2.0-12.0 [place] 796562-07-07 00:36:00 Test Item Value Reference Range Interpretation Comments Eosinophils (test code = 2.1 See_Comment [A utomated message] The Eosinophils) system which ge nerated this result tra nsmitted reference range : <=4.0. The reference r samantha was not used to int erpret this result as normal/abnormal . [place] 796562-07-07 00:36:00 Test Item Value Reference Range Interpretation Comments Basophils (test code = 0.7 See_Comment [Aut omated message] The Basophils) system which ge nerated this result tra nsmitted reference range : <=1.0. The reference r samantha was not used to int erpret this result as normal/abnormal . [facility] GreenvilleYywsmeqPTXYDLLFVW4645-05-57 00:36:00 Test Item Value Reference Range Interpretation Comments Neutrophils # (test code = Neutrophils 1.5 1.5-8.1 #) [place] 796562-07-07 00:36:00 Test Item Value Reference Range Interpretation Comments Lymphocytes # (test code = Lymphocytes 0.6 1.0-5.5 #) [place] 796562-07-07 00:36:00 Test Item Value Reference Range Interpretation Comments Monocytes # (test code 0.3 See_Comment [Aut omated message] The = Monocytes #) system which generated this result tra nsmitted reference range : <=0.8. The reference r samantha was not used to int erpret this result as normal/abnormal . [facility] GreenvilleTdlhpfwMNYUPCGLSA9441-92-51 00:36:00 Test Item Value Reference Range Interpretation Comments Eosinophils # (test code 0.1 See_Comment [A utomated message] The = Eosinophils #) system whic h generated this result tra nsmitted reference range : <=0.5. The reference r samantha was not used to int erpret this result as normal/abnormal . [facility] [id number] 00:36:00 Test Item Value Reference Range Interpretation Comments ABO/Rh (test code = ABO/Rh) AB POS [facility] [id number] 00:36:00 Test Item Value Reference Range Interpretation Comments Antibody Scrn (test Negative (12/03/21 7:36 code = Antibody Scrn) PM) [facility]2022-07-07 00:36:00 Test Item Value Reference Range Interpretation Comments Glucose Lvl (test code = Glucose Lvl) 143 70-99 [facility] [id number] 00:36:00 Test Item Value Reference Range Interpretation Comments BUN (test code = BUN) 39 7-22 [facility] [id number] 00:36:00 Test Item Value Reference Range Interpretation Comments Creatinine Lvl (test code = Creatinine 5.46 0.50-1.40 Lvl) [facility] [id number] 00:36:00 Test Item Value Reference Range Interpretation Comments Sodium Lvl (test code = Sodium Lvl) 136 135-145 [facility] [id number] 00:36:00 Test Item Value Reference Range Interpretation Comments Potassium Lvl (test code = Potassium 4.2 3.5-5.1 Lvl) [facility] [id number] 00:36:00 Test Item Value Reference Range Interpretation Comments Chloride Lvl (test code = Chloride Lvl) 100 95-109 [facility] [id number] 00:36:00 Test Item Value Reference Range Interpretation Comments CO2 (test code = CO2) 27 24-32 [facility] [id number] 00:36:00 Test Item Value Reference Range Interpretation Comments Calcium Lvl (test code = Calcium Lvl) 8.9 8.5-10.5 [facility] [id number] 00:36:00 Test Item Value Reference Range Interpretation Comments AGAP (test code = AGAP) 13.2 10.0-20.0 [facility] [id number] 00:36:00 Test Item Value Reference Range Interpretation Comments eGFR (test code = eGFR) 10 [facility] GreenvilleSkhhbetZGXLIPHQYI0843-57-92 00:36:00 Test Item Value Reference Range Interpretation Comments WBC (test code = WBC) 2.5 3.7-10.4 [facility]villeYddqxouOGYTHZBPSM2702-81-01 00:36:00 Test Item Value Reference Range Interpretation Comments RBC (test code = RBC) 1.97 4.70-6.10 [facility]villeNkuggxuWLDIELBMLO2189-13-76 00:36:00 Test Item Value Reference Range Interpretation Comments Hgb (test code = Hgb) 7.1 14.0-18.0 [facility] GreenvilleVxnruthSYZBMKNEON1631-63-60 00:36:00 Test Item Value Reference Range Interpretation Comments Hct (test code = Hct) 20.6 42.0-54.0 [facility] GreenvilleUfdbozhORBXPZKNOJ1919-78-65 00:36:00 Test Item Value Reference Range Interpretation Comments MCV (test code = MCV) 105.0 80.0-94.0 [facility] GreenvilleXkjteqnACWGXAZIKY3843-37-20 00:36:00 Test Item Value Reference Range Interpretation Comments MCH (test code = MCH) 36.2 pg 27.0-31.0 [facility] GreenvillePontbybJKCRJHNZST3228-40-89 00:36:00 Test Item Value Reference Range Interpretation Comments MCHC (test code = MCHC) 34.5 32.0-36.0 [facility] GreenvilleDoampluWHKUHTZRNG1532-89-22 00:36:00 Test Item Value Reference Range Interpretation Comments RDW (test code = RDW) 21.1 11.5-14.5 [facility] GreenvilleWgouscsDVJTGPTJFM5120-84-30 00:36:00 Test Item Value Reference Range Interpretation Comments Platelet (test code = Platelet) 136 133-450 [facility] GreenvilleNommgdoFOHZYSALQQ6587-92-62 00:36:00 Test Item Value Reference Range Interpretation Comments MPV (test code = MPV) 8.7 7.4-10.4 [facility] GreenvilleKqcpidqSTCFHJYEPY8756-64-71 00:36:00 Test Item Value Reference Range Interpretation Comments Segs (test code = Segs) 59.5 45.0-75.0 [facility] GreenvilleWefjvodQDWBWRDSIZ5248-49-30 00:36:00 Test Item Value Reference Range Interpretation Comments Lymphocytes (test code = Lymphocytes) 25.2 20.0-40.0 [facility] GreenvilleAnvtlwyNTYWHIJBFH4031-41-55 00:36:00 Test Item Value Reference Range Interpretation Comments Monocytes (test code = Monocytes) 12.5 2.0-12.0 [facility] GreenvilleDmizlowQSCPJJOHVE0412-35-21 00:36:00 Test Item Value Reference Range Interpretation Comments Eosinophils (test code = 2.1 See_Comment [A utomated message] The Eosinophils) system which ge nerated this result tra nsmitted reference range : <=4.0. The reference r samantha was not used to int erpret this result as normal/abnormal . [facility] GreenvilleGjqkgsgQIABLLYTDF5548-50-87 00:36:00 Test Item Value Reference Range Interpretation Comments Basophils (test code = 0.7 See_Comment [Aut omated message] The Basophils) system which ge nerated this result tra nsmitted reference range : <=1.0. The reference r samantha was not used to int erpret this result as normal/abnormal . [facility] GreenvilleXnnkzizPRKSHCBCZJ4353-96-80 00:36:00 Test Item Value Reference Range Interpretation Comments Neutrophils # (test code = Neutrophils 1.5 1.5-8.1 #) [facility] GreenvilleDjaitsvGEMDOGWGYJ8981-69-32 00:36:00 Test Item Value Reference Range Interpretation Comments Lymphocytes # (test code = Lymphocytes 0.6 1.0-5.5 #) [facility] GreenvilleCudotyaVYSSKBPURE0983-03-27 00:36:00 Test Item Value Reference Range Interpretation Comments Monocytes # (test code 0.3 See_Comment [Aut omated message] The = Monocytes #) system which generated this result tra nsmitted reference range : <=0.8. The reference r samantha was not used to int erpret this result as normal/abnormal . [facility] GreenvillePuudvpfACLZSUGYRE0535-76-58 00:36:00 Test Item Value Reference Range Interpretation Comments Eosinophils # (test code 0.1 See_Comment [A utomated message] The = Eosinophils #) system whic h generated this result tra nsmitted reference range : <=0.5. The reference r samantha was not used to int erpret this result as normal/abnormal . [facility] HospitalJ[facility] GVOQAFW3879-50-17 00:36:00 Test Item Value Reference Range Interpretation Comments ABO/Rh (test code = ABO/Rh) AB POS [facility] HospitalJ[facility] YHZLFFX3653-07-41 00:36:00 Test Item Value Reference Range Interpretation Comments Antibody Scrn (test Negative (12/03/21 7:36 code = Antibody Scrn) PM) [facility]2022-07-07 00:36:00 Test Item Value Reference Range Interpretation Comments Glucose Lvl (test code = Glucose Lvl) 143 70-99 [place] 509392-07-07 00:36:00 Test Item Value Reference Range Interpretation Comments BUN (test code = BUN) 39 7-22 [place] 509392-07-07 00:36:00 Test Item Value Reference Range Interpretation Comments Creatinine Lvl (test code = Creatinine 5.46 0.50-1.40 Lvl) [place] 509392-07-07 00:36:00 Test Item Value Reference Range Interpretation Comments Sodium Lvl (test code = Sodium Lvl) 136 135-145 [place] 509392-07-07 00:36:00 Test Item Value Reference Range Interpretation Comments Potassium Lvl (test code = Potassium 4.2 3.5-5.1 Lvl) [place] 509392-07-07 00:36:00 Test Item Value Reference Range Interpretation Comments Chloride Lvl (test code = Chloride Lvl) 100 95-109 [place] 509392-07-07 00:36:00 Test Item Value Reference Range Interpretation Comments CO2 (test code = CO2) 27 24-32 [place] 509392-07-07 00:36:00 Test Item Value Reference Range Interpretation Comments Calcium Lvl (test code = Calcium Lvl) 8.9 8.5-10.5 [place] 509392-07-07 00:36:00 Test Item Value Reference Range Interpretation Comments AGAP (test code = AGAP) 13.2 10.0-20.0 [place] 509392-07-07 00:36:00 Test Item Value Reference Range Interpretation Comments eGFR (test code = eGFR) 10 [place] 796562-07-07 00:36:00 Test Item Value Reference Range Interpretation Comments WBC (test code = WBC) 2.5 3.7-10.4 [place] 796562-07-07 00:36:00 Test Item Value Reference Range Interpretation Comments RBC (test code = RBC) 1.97 4.70-6.10 [place] 796562-07-07 00:36:00 Test Item Value Reference Range Interpretation Comments Hgb (test code = Hgb) 7.1 14.0-18.0 [facility] GreenvilleAuixocgJHXVOWSQVY3774-45-22 00:36:00 Test Item Value Reference Range Interpretation Comments Hct (test code = Hct) 20.6 42.0-54.0 [place] 796562-07-07 00:36:00 Test Item Value Reference Range Interpretation Comments MCV (test code = MCV) 105.0 80.0-94.0 [facility] GreenvilleRgsbkqsYTNWTJLGDQ3468-13-25 00:36:00 Test Item Value Reference Range Interpretation Comments MCH (test code = MCH) 36.2 pg 27.0-31.0 [facility] GreenvilleIavwsxaSRRSQJMXNW3957-50-10 00:36:00 Test Item Value Reference Range Interpretation Comments MCHC (test code = MCHC) 34.5 32.0-36.0 [facility] GreenvilleZubxqznTZAWBVMGEY0288-69-71 00:36:00 Test Item Value Reference Range Interpretation Comments RDW (test code = RDW) 21.1 11.5-14.5 [place] 796562-07-07 00:36:00 Test Item Value Reference Range Interpretation Comments Platelet (test code = Platelet) 136 133-450 [facility] GreenvilleTkozofoPFBEPYMXQE5765-42-59 00:36:00 Test Item Value Reference Range Interpretation Comments MPV (test code = MPV) 8.7 7.4-10.4 [facility] GreenvilleEjwodeiRPQJBALFOC3890-22-58 00:36:00 Test Item Value Reference Range Interpretation Comments Segs (test code = Segs) 59.5 45.0-75.0 [place] 796562-07-07 00:36:00 Test Item Value Reference Range Interpretation Comments Lymphocytes (test code = Lymphocytes) 25.2 20.0-40.0 [place] 796562-07-07 00:36:00 Test Item Value Reference Range Interpretation Comments Monocytes (test code = Monocytes) 12.5 2.0-12.0 [place] 796562-07-07 00:36:00 Test Item Value Reference Range Interpretation Comments Eosinophils (test code = 2.1 See_Comment [A utomated message] The Eosinophils) system which ge nerated this result tra nsmitted reference range : <=4.0. The reference r samantha was not used to int erpret this result as normal/abnormal . [facility] CenterMnhbllgEUPVCITHPC9441-16-39 00:36:00 Test Item Value Reference Range Interpretation Comments Basophils (test code = 0.7 See_Comment [Aut omated message] The Basophils) system which ge nerated this result tra nsmitted reference range : <=1.0. The reference r samantha was not used to int erpret this result as normal/abnormal . [facility] CenterAgprrsbKGPNIOOYDL9775-98-59 00:36:00 Test Item Value Reference Range Interpretation Comments Neutrophils # (test code = Neutrophils 1.5 1.5-8.1 #) [facility] GreenvilleUzdnaubYJOSTNHVMQ3808-51-49 00:36:00 Test Item Value Reference Range Interpretation Comments Lymphocytes # (test code = Lymphocytes 0.6 1.0-5.5 #) [facility] GreenvilleTrbvenmDCKNYYRLKY6766-03-42 00:36:00 Test Item Value Reference Range Interpretation Comments Monocytes # (test code 0.3 See_Comment [Aut omated message] The = Monocytes #) system which generated this result tra nsmitted reference range : <=0.8. The reference r samantha was not used to int erpret this result as normal/abnormal . [facility] CenterAfqtoswGJFOLIMTJI3668-76-31 00:36:00 Test Item Value Reference Range Interpretation Comments Eosinophils # (test code 0.1 See_Comment [A utomated message] The = Eosinophils #) system whic h generated this result tra nsmitted reference range : <=0.5. The reference r samantha was not used to int erpret this result as normal/abnormal . [facility] RIWI [facility] LUTXLMZ5396-98-82 00:36:00 Test Item Value Reference Range Interpretation Comments ABO/Rh (test code = ABO/Rh) AB POS [facility]Who[facility] YYBUPRF1175-81-33 00:36:00 Test Item Value Reference Range Interpretation Comments Antibody Scrn (test Negative (12/03/21 7:36 code = Antibody Scrn) PM) [facility] [id number] 00:36:00 Test Item Value Reference Range Interpretation Comments Glucose Lvl (test code = Glucose Lvl) 143 70-99 [facility] ALDFN4589-41-64 00:36:00 Test Item Value Reference Range Interpretation Comments BUN (test code = BUN) 39 7-22 [facility]UNC [facility] CampusYSVHR2333-91-52 00:36:00 Test Item Value Reference Range Interpretation Comments Creatinine Lvl (test code = Creatinine 5.46 0.50-1.40 Lvl) [place] 509392-07-07 00:36:00 Test Item Value Reference Range Interpretation Comments Sodium Lvl (test code = Sodium Lvl) 136 135-145 [place] 509392-07-07 00:36:00 Test Item Value Reference Range Interpretation Comments Potassium Lvl (test code = Potassium 4.2 3.5-5.1 Lvl) [place] 509392-07-07 00:36:00 Test Item Value Reference Range Interpretation Comments Chloride Lvl (test code = Chloride Lvl) 100 95-109 [place] 509392-07-07 00:36:00 Test Item Value Reference Range Interpretation Comments CO2 (test code = CO2) 27 24-32 [place] 509392-07-07 00:36:00 Test Item Value Reference Range Interpretation Comments Calcium Lvl (test code = Calcium Lvl) 8.9 8.5-10.5 [place] 509392-07-07 00:36:00 Test Item Value Reference Range Interpretation Comments AGAP (test code = AGAP) 13.2 10.0-20.0 [place] 509392-07-07 00:36:00 Test Item Value Reference Range Interpretation Comments eGFR (test code = eGFR) 10 [place] 796562-07-07 00:36:00 Test Item Value Reference Range Interpretation Comments WBC (test code = WBC) 2.5 3.7-10.4 [place] 796562-07-07 00:36:00 Test Item Value Reference Range Interpretation Comments RBC (test code = RBC) 1.97 4.70-6.10 [place] 796562-07-07 00:36:00 Test Item Value Reference Range Interpretation Comments Hgb (test code = Hgb) 7.1 14.0-18.0 [place] 796562-07-07 00:36:00 Test Item Value Reference Range Interpretation Comments Hct (test code = Hct) 20.6 42.0-54.0 [place] [address]-07-07 00:36:00 Test Item Value Reference Range Interpretation Comments MCV (test code = MCV) 105.0 80.0-94.0 [facility] GreenvilleExbostuLOKHCXYMCC3029-35-35 00:36:00 Test Item Value Reference Range Interpretation Comments MCH (test code = MCH) 36.2 pg 27.0-31.0 [facility] GreenvilleBdzaqmsTYUPPCCQTY3262-53-20 00:36:00 Test Item Value Reference Range Interpretation Comments MCHC (test code = MCHC) 34.5 32.0-36.0 [facility] GreenvilleZvdambrUXOUXVPQAU2367-49-69 00:36:00 Test Item Value Reference Range Interpretation Comments RDW (test code = RDW) 21.1 11.5-14.5 [facility] GreenvilleXnwnexmKRBTWXBAFV0466-33-49 00:36:00 Test Item Value Reference Range Interpretation Comments Platelet (test code = Platelet) 136 133-450 [facility] GreenvilleFvgeqboOADDWQQKZX9697-42-85 00:36:00 Test Item Value Reference Range Interpretation Comments MPV (test code = MPV) 8.7 7.4-10.4 [facility] GreenvilleScbkmlrWKLOHHUPSZ0595-05-90 00:36:00 Test Item Value Reference Range Interpretation Comments Segs (test code = Segs) 59.5 45.0-75.0 [facility] GreenvilleSzadqltYIICIZWRBC9545-04-50 00:36:00 Test Item Value Reference Range Interpretation Comments Lymphocytes (test code = Lymphocytes) 25.2 20.0-40.0 [facility] GreenvilleXxtivzdJGDWCGFSLD4297-65-18 00:36:00 Test Item Value Reference Range Interpretation Comments Monocytes (test code = Monocytes) 12.5 2.0-12.0 [place] 796562-07-07 00:36:00 Test Item Value Reference Range Interpretation Comments Eosinophils (test code = 2.1 See_Comment [A utomated message] The Eosinophils) system which ge nerated this result tra nsmitted reference range : <=4.0. The reference r samantha was not used to int erpret this result as normal/abnormal . [facility] GreenvilleXiwvdzfNAOTUQOVTT1847-12-35 00:36:00 Test Item Value Reference Range Interpretation Comments Basophils (test code = 0.7 See_Comment [Aut omated message] The Basophils) system which ge nerated this result tra nsmitted reference range : <=1.0. The reference r samantha was not used to int erpret this result as normal/abnormal . [place] 796562-07-07 00:36:00 Test Item Value Reference Range Interpretation Comments Neutrophils # (test code = Neutrophils 1.5 1.5-8.1 #) [facility] GreenvilleBfhephdINOFWFDOSW8681-10-46 00:36:00 Test Item Value Reference Range Interpretation Comments Lymphocytes # (test code = Lymphocytes 0.6 1.0-5.5 #) [facility] GreenvilleAjlypqnUCSWNMRMAG8826-24-07 00:36:00 Test Item Value Reference Range Interpretation Comments Monocytes # (test code 0.3 See_Comment [Aut omated message] The = Monocytes #) system which generated this result tra nsmitted reference range : <=0.8. The reference r samantha was not used to int erpret this result as normal/abnormal . [facility] GreenvilleDdzymhwQQQLSLDRVZ4363-01-68 00:36:00 Test Item Value Reference Range Interpretation Comments Eosinophils # (test code 0.1 See_Comment [A utomated message] The = Eosinophils #) system whic h generated this result tra nsmitted reference range : <=0.5. The reference r samantha was not used to int erpret this result as normal/abnormal . [facility] CenterSocialMedia305 [facility] CGJGSPB6978-73-16 00:36:00 Test Item Value Reference Range Interpretation Comments ABO/Rh (test code = ABO/Rh) AB POS [facility] [employer] [facility] [id number] 00:36:00 Test Item Value Reference Range Interpretation Comments Antibody Scrn (test Negative (12/03/21 7:36 code = Antibody Scrn) PM) [facility] [id number] 00:36:00 Test Item Value Reference Range Interpretation Comments Glucose Lvl (test code = Glucose Lvl) 143 70-99 [facility] [id number] 00:36:00 Test Item Value Reference Range Interpretation Comments BUN (test code = BUN) 39 7-22 [facility] [id number] 00:36:00 Test Item Value Reference Range Interpretation Comments Creatinine Lvl (test code = Creatinine 5.46 0.50-1.40 Lvl) [facility] [id number] 00:36:00 Test Item Value Reference Range Interpretation Comments Sodium Lvl (test code = Sodium Lvl) 136 135-145 [facility] [id number] 00:36:00 Test Item Value Reference Range Interpretation Comments Potassium Lvl (test code = Potassium 4.2 3.5-5.1 Lvl) [facility]2022-07-07 00:36:00 Test Item Value Reference Range Interpretation Comments Chloride Lvl (test code = Chloride Lvl) 100 95-109 [place] 509392-07-07 00:36:00 Test Item Value Reference Range Interpretation Comments CO2 (test code = CO2) 27 24-32 [place] 509392-07-07 00:36:00 Test Item Value Reference Range Interpretation Comments Calcium Lvl (test code = Calcium Lvl) 8.9 8.5-10.5 [place] 509392-07-07 00:36:00 Test Item Value Reference Range Interpretation Comments AGAP (test code = AGAP) 13.2 10.0-20.0 [place] 509392-07-07 00:36:00 Test Item Value Reference Range Interpretation Comments eGFR (test code = eGFR) 10 [facility]villeOplegudFVEWWJUFEB2987-94-80 00:36:00 Test Item Value Reference Range Interpretation Comments WBC (test code = WBC) 2.5 3.7-10.4 [place] 796562-07-07 00:36:00 Test Item Value Reference Range Interpretation Comments RBC (test code = RBC) 1.97 4.70-6.10 [place] 796562-07-07 00:36:00 Test Item Value Reference Range Interpretation Comments Hgb (test code = Hgb) 7.1 14.0-18.0 [place] 796562-07-07 00:36:00 Test Item Value Reference Range Interpretation Comments Hct (test code = Hct) 20.6 42.0-54.0 [place] 796562-07-07 00:36:00 Test Item Value Reference Range Interpretation Comments MCV (test code = MCV) 105.0 80.0-94.0 [place] 796562-07-07 00:36:00 Test Item Value Reference Range Interpretation Comments MCH (test code = MCH) 36.2 pg 27.0-31.0 [place] 796562-07-07 00:36:00 Test Item Value Reference Range Interpretation Comments MCHC (test code = MCHC) 34.5 32.0-36.0 [place] 796562-07-07 00:36:00 Test Item Value Reference Range Interpretation Comments RDW (test code = RDW) 21.1 11.5-14.5 [place] 796562-07-07 00:36:00 Test Item Value Reference Range Interpretation Comments Platelet (test code = Platelet) 136 133-450 [facility] GreenvilleHfyyczbEWUILUZUMW6706-47-50 00:36:00 Test Item Value Reference Range Interpretation Comments MPV (test code = MPV) 8.7 7.4-10.4 [place] 796562-07-07 00:36:00 Test Item Value Reference Range Interpretation Comments Segs (test code = Segs) 59.5 45.0-75.0 [place] 796562-07-07 00:36:00 Test Item Value Reference Range Interpretation Comments Lymphocytes (test code = Lymphocytes) 25.2 20.0-40.0 [place] 796562-07-07 00:36:00 Test Item Value Reference Range Interpretation Comments Monocytes (test code = Monocytes) 12.5 2.0-12.0 [place] 796562-07-07 00:36:00 Test Item Value Reference Range Interpretation Comments Eosinophils (test code = 2.1 See_Comment [A utomated message] The Eosinophils) system which ge nerated this result tra nsmitted reference range : <=4.0. The reference r samantha was not used to int erpret this result as normal/abnormal . [facility] GreenvilleSrkobibJZLXDVSSAC4818-09-61 00:36:00 Test Item Value Reference Range Interpretation Comments Basophils (test code = 0.7 See_Comment [Aut omated message] The Basophils) system which ge nerated this result tra nsmitted reference range : <=1.0. The reference r samantha was not used to int erpret this result as normal/abnormal . [facility] GreenvilleRzcqpriAGHXMWOSXD2599-27-09 00:36:00 Test Item Value Reference Range Interpretation Comments Neutrophils # (test code = Neutrophils 1.5 1.5-8.1 #) [facility] GreenvilleUiexecmHJQXNHOZUR9177-40-78 00:36:00 Test Item Value Reference Range Interpretation Comments Lymphocytes # (test code = Lymphocytes 0.6 1.0-5.5 #) [place] 796562-07-07 00:36:00 Test Item Value Reference Range Interpretation Comments Monocytes # (test code 0.3 See_Comment [Aut omated message] The = Monocytes #) system which generated this result tra nsmitted reference range : <=0.8. The reference r samantha was not used to int erpret this result as normal/abnormal . [facility]SfixgmgGVSUWQAIFP0485-15-19 00:36:00 Test Item Value Reference Range Interpretation Comments Eosinophils # (test code 0.1 See_Comment [A utomated message] The = Eosinophils #) system whic h generated this result tra nsmitted reference range : <=0.5. The reference r samantha was not used to int erpret this result as normal/abnormal . [facility] [employer] YHODWCJ9397-29-25 00:36:00 Test Item Value Reference Range Interpretation Comments ABO/Rh (test code = ABO/Rh) AB POS [facility] [employer] [id number] 00:36:00 Test Item Value Reference Range Interpretation Comments Antibody Scrn (test Negative (12/03/21 7:36 code = Antibody Scrn) PM) [facility] [employer] [id number] 00:36:00 Test Item Value Reference Range Interpretation Comments Glucose Lvl (test code = Glucose Lvl) 143 70-[address] [facility] [employer] [id number] 00:36:00 Test Item Value Reference Range Interpretation Comments BUN (test code = BUN) 39 7-[address] [facility] [employer] [id number] 00:36:00 Test Item Value Reference Range Interpretation Comments Creatinine Lvl (test code = Creatinine 5.46 0.50-1.40 Lvl) [facility] [employer] [id number] 00:36:00 Test Item Value Reference Range Interpretation Comments Sodium Lvl (test code = Sodium Lvl) 136 135-[address] [facility] [employer] [id number] 00:36:00 Test Item Value Reference Range Interpretation Comments Potassium Lvl (test code = Potassium 4.2 3.5-5.1 Lvl) [facility] [employer] [id number] 00:36:00 Test Item Value Reference Range Interpretation Comments Chloride Lvl (test code = Chloride Lvl) 100 95-[address] [facility] [employer] [id number] 00:36:00 Test Item Value Reference Range Interpretation Comments CO2 (test code = CO2) 27 24-32 [facility]2022-07-07 00:36:00 Test Item Value Reference Range Interpretation Comments Calcium Lvl (test code = Calcium Lvl) 8.9 8.5-10.5 [facility]2022-07-07 00:36:00 Test Item Value Reference Range Interpretation Comments AGAP (test code = AGAP) 13.2 10.0-20.0 [facility]2022-07-07 00:36:00 Test Item Value Reference Range Interpretation Comments eGFR (test code = eGFR) 10 [facility] GreenvilleOtkdtxjZIPTMDVGPT1707-02-77 00:36:00 Test Item Value Reference Range Interpretation Comments WBC (test code = WBC) 2.5 3.7-10.4 [facility] GreenvilleZipbetuFOADXWCOXN1551-83-11 00:36:00 Test Item Value Reference Range Interpretation Comments RBC (test code = RBC) 1.97 4.70-6.10 [place] 796562-07-07 00:36:00 Test Item Value Reference Range Interpretation Comments Hgb (test code = Hgb) 7.1 14.0-18.0 [place] 796562-07-07 00:36:00 Test Item Value Reference Range Interpretation Comments Hct (test code = Hct) 20.6 42.0-54.0 [place] 796562-07-07 00:36:00 Test Item Value Reference Range Interpretation Comments MCV (test code = MCV) 105.0 80.0-94.0 [place] 796562-07-07 00:36:00 Test Item Value Reference Range Interpretation Comments MCH (test code = MCH) 36.2 pg 27.0-31.0 [facility] GreenvilleXnhaydlUYFNOVSSPV0852-51-83 00:36:00 Test Item Value Reference Range Interpretation Comments MCHC (test code = MCHC) 34.5 32.0-36.0 [place] 796562-07-07 00:36:00 Test Item Value Reference Range Interpretation Comments RDW (test code = RDW) 21.1 11.5-14.5 [facility] GreenvilleDmwffktIEDPXXSMQC4915-91-05 00:36:00 Test Item Value Reference Range Interpretation Comments Platelet (test code = Platelet) 136 133-450 [facility] GreenvilleMfjyxmxMKZDUHDHDJ9390-23-66 00:36:00 Test Item Value Reference Range Interpretation Comments MPV (test code = MPV) 8.7 7.4-10.4 [facility] GreenvilleEcajofmMVJMWNPRUD3707-27-69 00:36:00 Test Item Value Reference Range Interpretation Comments Segs (test code = Segs) 59.5 45.0-75.0 [facility] GreenvilleXnmtevuCWUDRGWFQA8279-18-66 00:36:00 Test Item Value Reference Range Interpretation Comments Lymphocytes (test code = Lymphocytes) 25.2 20.0-40.0 [facility] GreenvilleUlukfmnSHLIKSRZLM1100-60-09 00:36:00 Test Item Value Reference Range Interpretation Comments Monocytes (test code = Monocytes) 12.5 2.0-12.0 [facility] GreenvilleIfznmepMKEDSNGJXR1071-08-67 00:36:00 Test Item Value Reference Range Interpretation Comments Eosinophils (test code = 2.1 See_Comment [A utomated message] The Eosinophils) system which ge nerated this result tra nsmitted reference range : <=4.0. The reference r samantha was not used to int erpret this result as normal/abnormal . [facility] GreenvilleCwqroniGCJFZBXKOS9252-77-05 00:36:00 Test Item Value Reference Range Interpretation Comments Basophils (test code = 0.7 See_Comment [Aut omated message] The Basophils) system which ge nerated this result tra nsmitted reference range : <=1.0. The reference r samantha was not used to int erpret this result as normal/abnormal . [facility] GreenvilleFiikgxbXKPPBXOVUS6175-98-00 00:36:00 Test Item Value Reference Range Interpretation Comments Neutrophils # (test code = Neutrophils 1.5 1.5-8.1 #) [facility] GreenvilleUfkusmfKKQIXAEXFA5730-98-05 00:36:00 Test Item Value Reference Range Interpretation Comments Lymphocytes # (test code = Lymphocytes 0.6 1.0-5.5 #) [facility] GreenvillePirttyyNGYZBGCUGV6406-24-69 00:36:00 Test Item Value Reference Range Interpretation Comments Monocytes # (test code 0.3 See_Comment [Aut omated message] The = Monocytes #) system which generated this result tra nsmitted reference range : <=0.8. The reference r samantha was not used to int erpret this result as normal/abnormal . [facility] GreenvilleLnojctyXHCNOQHISI2462-81-85 00:36:00 Test Item Value Reference Range Interpretation Comments Eosinophils # (test code 0.1 See_Comment [A utomated message] The = Eosinophils #) system whic h generated this result tra nsmitted reference range : <=0.5. The reference r samantha was not used to int erpret this result as normal/abnormal . [facility] [employer] LDRFLEP6947-37-64 00:36:00 Test Item Value Reference Range Interpretation Comments ABO/Rh (test code = ABO/Rh) AB POS [facility] [employer] QEGVPSG2227-03-58 00:36:00 Test Item Value Reference Range Interpretation Comments Antibody Scrn (test Negative (12/03/21 7:36 code = Antibody Scrn) PM) [facility] [employer] [id number] 00:36:00 Test Item Value Reference Range Interpretation Comments Glucose Lvl (test code = Glucose Lvl) 143 70-[address] [facility] [employer] [id number] 00:36:00 Test Item Value Reference Range Interpretation Comments BUN (test code = BUN) 39 7-[address] [facility] [employer] [id number] 00:36:00 Test Item Value Reference Range Interpretation Comments Creatinine Lvl (test code = Creatinine 5.46 0.50-1.40 Lvl) [facility] [employer] [id number] 00:36:00 Test Item Value Reference Range Interpretation Comments Sodium Lvl (test code = Sodium Lvl) 136 135-[address] [facility] [employer] [id number] 00:36:00 Test Item Value Reference Range Interpretation Comments Potassium Lvl (test code = Potassium 4.2 3.5-5.1 Lvl) [facility] [employer]2022-07-07 00:36:00 Test Item Value Reference Range Interpretation Comments Chloride Lvl (test code = Chloride Lvl) 100 95-[address] [facility] [employer] [id number] 00:36:00 Test Item Value Reference Range Interpretation Comments CO2 (test code = CO2) 27 24-[address] [facility] [employer] [id number] 00:36:00 Test Item Value Reference Range Interpretation Comments Calcium Lvl (test code = Calcium Lvl) 8.9 8.5-10.[address] [facility] [employer] [id number] 00:36:00 Test Item Value Reference Range Interpretation Comments AGAP (test code = AGAP) 13.2 10.0-20.0 [facility]2022-07-07 00:36:00 Test Item Value Reference Range Interpretation Comments eGFR (test code = eGFR) 10 [facility] GreenvilleTtgjikiVMODCDGSPI0788-12-66 00:36:00 Test Item Value Reference Range Interpretation Comments WBC (test code = WBC) 2.5 3.7-10.4 [facility] GreenvilleHoirzwnFYZPYXVLNM7995-77-32 00:36:00 Test Item Value Reference Range Interpretation Comments RBC (test code = RBC) 1.97 4.70-6.10 [facility] GreenvilleNtdowglGQGZGUEAQZ2549-40-83 00:36:00 Test Item Value Reference Range Interpretation Comments Hgb (test code = Hgb) 7.1 14.0-18.0 [place] 796562-07-07 00:36:00 Test Item Value Reference Range Interpretation Comments Hct (test code = Hct) 20.6 42.0-54.0 [facility] GreenvilleRxhkixsEKRSQSVRNB1569-09-77 00:36:00 Test Item Value Reference Range Interpretation Comments MCV (test code = MCV) 105.0 80.0-94.0 [facility] GreenvilleXangwyaVGEMZPZAIT2282-11-19 00:36:00 Test Item Value Reference Range Interpretation Comments MCH (test code = MCH) 36.2 pg 27.0-31.0 [facility] GreenvilleXzksfytMKYZSTZXLN7226-04-50 00:36:00 Test Item Value Reference Range Interpretation Comments MCHC (test code = MCHC) 34.5 32.0-36.0 [facility] GreenvilleTxtwkdhBUFIWNOULQ3120-77-39 00:36:00 Test Item Value Reference Range Interpretation Comments RDW (test code = RDW) 21.1 11.5-14.5 [place] 796562-07-07 00:36:00 Test Item Value Reference Range Interpretation Comments Platelet (test code = Platelet) 136 133-450 [facility] GreenvilleQvtlakvFWWPTOAMME9406-79-32 00:36:00 Test Item Value Reference Range Interpretation Comments MPV (test code = MPV) 8.7 7.4-10.4 [place] 796562-07-07 00:36:00 Test Item Value Reference Range Interpretation Comments Segs (test code = Segs) 59.5 45.0-75.0 [facility] GreenvilleLpmreepXKPRXMTKWI3147-03-24 00:36:00 Test Item Value Reference Range Interpretation Comments Lymphocytes (test code = Lymphocytes) 25.2 20.0-40.0 [facility] GreenvilleDlcorahUINFMTSPZU4305-91-59 00:36:00 Test Item Value Reference Range Interpretation Comments Monocytes (test code = Monocytes) 12.5 2.0-12.0 [facility] GreenvilleZpsdyxoHTVRVMGJQL5591-83-49 00:36:00 Test Item Value Reference Range Interpretation Comments Eosinophils (test code = 2.1 See_Comment [A utomated message] The Eosinophils) system which ge nerated this result tra nsmitted reference range : <=4.0. The reference r samantha was not used to int erpret this result as normal/abnormal . [facility] GreenvilleXupfnbeKIHZGGRSII3917-18-38 00:36:00 Test Item Value Reference Range Interpretation Comments Basophils (test code = 0.7 See_Comment [Aut omated message] The Basophils) system which ge nerated this result tra nsmitted reference range : <=1.0. The reference r samantha was not used to int erpret this result as normal/abnormal . [facility] GreenvilleUibgsdgLTZXRDSHQC2660-20-25 00:36:00 Test Item Value Reference Range Interpretation Comments Neutrophils # (test code = Neutrophils 1.5 1.5-8.1 #) [facility] GreenvilleHiefmabVPRAWXGAOH1622-47-45 00:36:00 Test Item Value Reference Range Interpretation Comments Lymphocytes # (test code = Lymphocytes 0.6 1.0-5.5 #) [facility] GreenvilleZsrbnzxAKXZBJHPNI0505-30-28 00:36:00 Test Item Value Reference Range Interpretation Comments Monocytes # (test code 0.3 See_Comment [Aut omated message] The = Monocytes #) system which generated this result tra nsmitted reference range : <=0.8. The reference r samantha was not used to int erpret this result as normal/abnormal . [facility] GreenvilleIipethqWWCFNRHHGI8460-84-75 00:36:00 Test Item Value Reference Range Interpretation Comments Eosinophils # (test code 0.1 See_Comment [A utomated message] The = Eosinophils #) system whic h generated this result tra nsmitted reference range : <=0.5. The reference r samantha was not used to int erpret this result as normal/abnormal . [facility]2022-06-29 09:09:00 Test Item Value Reference Range Interpretation Comments Ferritin Lvl (test code = Ferritin Lvl) 1543 22275 [facility]2022-06-29 09:09:00 Test Item Value Reference Range Interpretation Comments Glucose Lvl (test code = Glucose Lvl) 288 70-99 [facility]2022-06-29 09:09:00 Test Item Value Reference Range Interpretation Comments BUN (test code = BUN) 40 7-22 [facility]2022-06-29 09:09:00 Test Item Value Reference Range Interpretation Comments Creatinine Lvl (test code = Creatinine 6.23 0.50-1.40 Lvl) [facility]2022-06-29 09:09:00 Test Item Value Reference Range Interpretation Comments Sodium Lvl (test code = Sodium Lvl) 134 135-145 [facility]2022-06-29 09:09:00 Test Item Value Reference Range Interpretation Comments Potassium Lvl (test code = Potassium 4.5 3.5-5.1 Lvl) [facility]2022-06-29 09:09:00 Test Item Value Reference Range Interpretation Comments Chloride Lvl (test code = Chloride Lvl) 96 95-109 [facility]2022-06-29 09:09:00 Test Item Value Reference Range Interpretation Comments CO2 (test code = CO2) 29 24-32 [facility]2022-06-29 09:09:00 Test Item Value Reference Range Interpretation Comments AGAP (test code = AGAP) 13.5 10.0-20.0 [facility]2022-06-29 09:09:00 Test Item Value Reference Range Interpretation Comments Calcium Lvl (test code = Calcium Lvl) 9.1 8.5-10.5 [facility]2022-06-29 09:09:00 Test Item Value Reference Range Interpretation Comments B/C Ratio (test code = B/C Ratio) 6 1 6-25 [place] 509392-06-29 09:09:00 Test Item Value Reference Range Interpretation Comments Total Protein (test code = Total 6.3 6.4-8.4 Protein) [facility]2022-06-29 09:09:00 Test Item Value Reference Range Interpretation Comments Albumin Lvl (test code = Albumin Lvl) 2.5 3.5-5.0 [place] 509392-06-29 09:09:00 Test Item Value Reference Range Interpretation Comments Globulin (test code = Globulin) 3.8 2.7-4.2 [place] 509392-06-29 09:09:00 Test Item Value Reference Range Interpretation Comments A/G Ratio (test code = A/G Ratio) 0.7 1 0.7-1.6 [facility] HKKSX8397-17-31 09:09:00 Test Item Value Reference Range Interpretation Comments ALT (test code = ALT) 38 See_Comment [Auto mated message] The system which ge nerated this result transmit swathi reference range : <=65. The reference range was not used to interpr et this result as deny l/abnormal. [facility] DSFYJ3893-76-33 09:09:00 Test Item Value Reference Range Interpretation Comments AST (test code = AST) 31 See_Comment [Auto mated message] The system which ge nerated this result transmit swathi reference range : <=37. The reference range was not used to interpr et this result as deny l/abnormal. [facility] QVMUE7039-09-32 09:09:00 Test Item Value Reference Range Interpretation Comments Alk Phos (test code = Alk Phos) 357 39-136 [facility] HHBVA4309-13-81 09:09:00 Test Item Value Reference Range Interpretation Comments Bili Total (test code = Bili Total) 1.0 0.2-1.3 [facility] GYORT7253-10-53 09:09:00 Test Item Value Reference Range Interpretation Comments eGFR (test code = eGFR) 8 [facility] FTQWD3314-13-22 09:09:00 Test Item Value Reference Range Interpretation Comments Magnesium Lvl (test code = Magnesium 2.0 1.8-2.4 Lvl) [facility] MLMPF9823-89-76 09:09:00 Test Item Value Reference Range Interpretation Comments LDH (test code = LDH) 251 98-192 [facility] RYGQV0531-28-90 09:09:00 Test Item Value Reference Range Interpretation Comments Procalcitonin Lvl (test 0.51 See_Comment [Au tomated message] code = Procalcitonin Lvl) Th e system which generated this result transmitted ref erence range: <=0.10. The reference range was not used to interpr et this result as normal/abnormal . [facility] GreenvilleFmnbvcgJTNLSVZIXP4280-50-11 09:09:00 Test Item Value Reference Range Interpretation Comments D-Dimer (test code = D-Dimer) 5.06 [facility] GreenvilleZayoxouZMSTWLSQQF7768-34-32 09:09:00 Test Item Value Reference Range Interpretation Comments WBC (test code = WBC) 4.8 3.7-10.4 [facility] GreenvilleBalypsnREPPNHUSUW7059-32-29 09:09:00 Test Item Value Reference Range Interpretation Comments RBC (test code = RBC) 2.14 4.70-6.10 [facility] GreenvilleZzfhbvzZWGPNJYGXF8679-06-04 09:09:00 Test Item Value Reference Range Interpretation Comments Hgb (test code = Hgb) 7.7 14.0-18.0 [facility] GreenvilleSfgbrjxVAKOURQCZT5577-23-17 09:09:00 Test Item Value Reference Range Interpretation Comments Hct (test code = Hct) 22.8 42.0-54.0 [facility] GreenvilleEygcpowFOUZKDCAWQ1064-59-54 09:09:00 Test Item Value Reference Range Interpretation Comments MCV (test code = MCV) 106.5 80.0-94.0 [facility] GreenvilleNykntvqFXRBKAJEEW8825-13-69 09:09:00 Test Item Value Reference Range Interpretation Comments MCH (test code = MCH) 36.1 pg 27.0-31.0 [facility] GreenvillePpmeicbPALFHXMFUC8541-28-72 09:09:00 Test Item Value Reference Range Interpretation Comments MCHC (test code = MCHC) 33.9 32.0-36.0 [facility] GreenvilleDjftuwfMLKFDLSCMM0602-03-72 09:09:00 Test Item Value Reference Range Interpretation Comments RDW (test code = RDW) 21.8 11.5-14.5 [facility] GreenvilleLvogyfsUMQIXAWBPD5837-51-01 09:09:00 Test Item Value Reference Range Interpretation Comments Platelet (test code = Platelet) 176 133-450 [facility] GreenvilleApofksqOIETYDKTDJ5717-43-44 09:09:00 Test Item Value Reference Range Interpretation Comments MPV (test code = MPV) 8.2 7.4-10.4 [facility] GreenvilleJrygrlnFADDTWKMZH5498-51-77 09:09:00 Test Item Value Reference Range Interpretation Comments Segs (test code = Segs) 83.6 45.0-75.0 [place] [address]-06-29 09:09:00 Test Item Value Reference Range Interpretation Comments Lymphocytes (test code = Lymphocytes) 10.7 20.0-40.0 [facility] GreenvilleDezjowhMCQZELFTTR4812-88-44 09:09:00 Test Item Value Reference Range Interpretation Comments Monocytes (test code = Monocytes) 4.9 2.0-12.0 [facility] GreenvilleCptwmtlHTYYQTBDKI9005-15-33 09:09:00 Test Item Value Reference Range Interpretation Comments Eosinophils (test code = 0.4 See_Comment [A utomated message] The Eosinophils) system which ge nerated this result tra nsmitted reference range : <=4.0. The reference r samantha was not used to int erpret this result as normal/abnormal . [facility] GreenvilleBnjrwkeVKALGTPIOR4844-13-63 09:09:00 Test Item Value Reference Range Interpretation Comments Basophils (test code = 0.4 See_Comment [Aut omated message] The Basophils) system which ge nerated this result tra nsmitted reference range : <=1.0. The reference r samantha was not used to int erpret this result as normal/abnormal . [facility]villeUtwfjyyKSTSQWFUUD9119-10-41 09:09:00 Test Item Value Reference Range Interpretation Comments Neutrophils # (test code = Neutrophils 4.0 1.5-8.1 #) [facility] GreenvilleKsydqbaOSURYUJYRE1164-51-95 09:09:00 Test Item Value Reference Range Interpretation Comments Lymphocytes # (test code = Lymphocytes 0.5 1.0-5.5 #) [facility]villePwvcwrtVUPTFTAMVL3343-08-55 09:09:00 Test Item Value Reference Range Interpretation Comments Monocytes # (test code 0.2 See_Comment [Aut omated message] The = Monocytes #) system which generated this result tra nsmitted reference range : <=0.8. The reference r samantha was not used to int erpret this result as normal/abnormal . [facility] GreenvilleWeymspgITDZAUCAOG4410-92-88 09:09:00 Test Item Value Reference Range Interpretation Comments Macrocyte (test code = 1+ *ABN*(11/26/21 Macrocyte) 4:09 AM) [facility] ClubKwjhnugGDKINAFETE4063-41-99 09:09:00 Test Item Value Reference Range Interpretation Comments Interleukin 6 (test code = Interleukin 14.71 6) [place] 735922-06-29 09:09:00 Test Item Value Reference Range Interpretation Comments C-REACTIVE PROTEIN (test code = 95.9 C-REACTIVE PROTEIN) [facility]2022-06-29 09:09:00 Test Item Value Reference Range Interpretation Comments Ferritin Lvl (test code = Ferritin Lvl) 1543 22-275 [place] 509392-06-29 09:09:00 Test Item Value Reference Range Interpretation Comments Glucose Lvl (test code = Glucose Lvl) 288 70-99 [place] 509392-06-29 09:09:00 Test Item Value Reference Range Interpretation Comments BUN (test code = BUN) 40 7-22 [place] 509392-06-29 09:09:00 Test Item Value Reference Range Interpretation Comments Creatinine Lvl (test code = Creatinine 6.23 0.50-1.40 Lvl) [place] 509392-06-29 09:09:00 Test Item Value Reference Range Interpretation Comments Sodium Lvl (test code = Sodium Lvl) 134 135-145 [place] 509392-06-29 09:09:00 Test Item Value Reference Range Interpretation Comments Potassium Lvl (test code = Potassium 4.5 3.5-5.1 Lvl) [place] 509392-06-29 09:09:00 Test Item Value Reference Range Interpretation Comments Chloride Lvl (test code = Chloride Lvl) 96 95-109 [place] 509392-06-29 09:09:00 Test Item Value Reference Range Interpretation Comments CO2 (test code = CO2) 29 24-32 [place] 509392-06-29 09:09:00 Test Item Value Reference Range Interpretation Comments AGAP (test code = AGAP) 13.5 10.0-20.0 [place] 509392-06-29 09:09:00 Test Item Value Reference Range Interpretation Comments Calcium Lvl (test code = Calcium Lvl) 9.1 8.5-10.5 [place] 509392-06-29 09:09:00 Test Item Value Reference Range Interpretation Comments B/C Ratio (test code = B/C Ratio) 6 1 6-25 [place] 509392-06-29 09:09:00 Test Item Value Reference Range Interpretation Comments Total Protein (test code = Total 6.3 6.4-8.4 Protein) [place] 509392-06-29 09:09:00 Test Item Value Reference Range Interpretation Comments Albumin Lvl (test code = Albumin Lvl) 2.5 3.5-5.0 [place] 509392-06-29 09:09:00 Test Item Value Reference Range Interpretation Comments Globulin (test code = Globulin) 3.8 2.7-4.2 [place] 509392-06-29 09:09:00 Test Item Value Reference Range Interpretation Comments A/G Ratio (test code = A/G Ratio) 0.7 1 0.7-1.6 [place] [address]-06-29 09:09:00 Test Item Value Reference Range Interpretation Comments ALT (test code = ALT) 38 See_Comment [Auto mated message] The system which ge nerated this result transmit swathi reference range : <=65. The reference range was not used to interpr et this result as deny l/abnormal. [place] 509392-06-29 09:09:00 Test Item Value Reference Range Interpretation Comments AST (test code = AST) 31 See_Comment [Auto mated message] The system which ge nerated this result transmit swathi reference range : <=37. The reference range was not used to interpr et this result as deny l/abnormal. [place] 509392-06-29 09:09:00 Test Item Value Reference Range Interpretation Comments Alk Phos (test code = Alk Phos) 357 39-136 [place] 509392-06-29 09:09:00 Test Item Value Reference Range Interpretation Comments Bili Total (test code = Bili Total) 1.0 0.2-1.3 [place] 509392-06-29 09:09:00 Test Item Value Reference Range Interpretation Comments eGFR (test code = eGFR) 8 [place] 509392-06-29 09:09:00 Test Item Value Reference Range Interpretation Comments Magnesium Lvl (test code = Magnesium 2.0 1.8-2.4 Lvl) [place] 509392-06-29 09:09:00 Test Item Value Reference Range Interpretation Comments LDH (test code = LDH) 251 98-192 [place] 509392-06-29 09:09:00 Test Item Value Reference Range Interpretation Comments Procalcitonin Lvl (test 0.51 See_Comment [Au tomated message] code = Procalcitonin Lvl) Th e system which generated this result transmitted ref erence range: <=0.10. The reference range was not used to interpr et this result as normal/abnormal . [facility] GreenvilleYqdwvhbJUNIBDVYEX3433-94-74 09:09:00 Test Item Value Reference Range Interpretation Comments D-Dimer (test code = D-Dimer) 5.06 [facility] GreenvilleXrqyjuqNZLLIGAERY9537-70-88 09:09:00 Test Item Value Reference Range Interpretation Comments WBC (test code = WBC) 4.8 3.7-10.4 [place] 796562-06-29 09:09:00 Test Item Value Reference Range Interpretation Comments RBC (test code = RBC) 2.14 4.70-6.10 [place] 796562-06-29 09:09:00 Test Item Value Reference Range Interpretation Comments Hgb (test code = Hgb) 7.7 14.0-18.0 [facility] GreenvilleFtqhlkkYNXAGPKTNU1947-88-44 09:09:00 Test Item Value Reference Range Interpretation Comments Hct (test code = Hct) 22.8 42.0-54.0 [facility] GreenvillePqbdeddQCQGMMGQXR5117-39-20 09:09:00 Test Item Value Reference Range Interpretation Comments MCV (test code = MCV) 106.5 80.0-94.0 [facility] GreenvilleWmmzutcZCTXNPYPVC7009-40-70 09:09:00 Test Item Value Reference Range Interpretation Comments MCH (test code = MCH) 36.1 pg 27.0-31.0 [facility] GreenvilleIyxnqyjAIPMLILEUH4248-46-57 09:09:00 Test Item Value Reference Range Interpretation Comments MCHC (test code = MCHC) 33.9 32.0-36.0 [facility] GreenvilleUmgiamwASHBVNSILO8622-63-40 09:09:00 Test Item Value Reference Range Interpretation Comments RDW (test code = RDW) 21.8 11.5-14.5 [facility] GreenvilleUpimkeuVSWSLSDCOJ5242-79-41 09:09:00 Test Item Value Reference Range Interpretation Comments Platelet (test code = Platelet) 176 133-450 [facility] GreenvilleLvszlmoFKMNBYAUJD8279-79-90 09:09:00 Test Item Value Reference Range Interpretation Comments MPV (test code = MPV) 8.2 7.4-10.4 [facility] GreenvilleEnmocinWZBHKPIHBY5108-83-32 09:09:00 Test Item Value Reference Range Interpretation Comments Segs (test code = Segs) 83.6 45.0-75.0 [facility] GreenvillePymnwafHYWPWEPNRW3669-41-69 09:09:00 Test Item Value Reference Range Interpretation Comments Lymphocytes (test code = Lymphocytes) 10.7 20.0-40.0 [place] 796562-06-29 09:09:00 Test Item Value Reference Range Interpretation Comments Monocytes (test code = Monocytes) 4.9 2.0-12.0 [place] [address]-06-29 09:09:00 Test Item Value Reference Range Interpretation Comments Eosinophils (test code = 0.4 See_Comment [A utomated message] The Eosinophils) system which ge nerated this result tra nsmitted reference range : <=4.0. The reference r samantha was not used to int erpret this result as normal/abnormal . [facility] GreenvilleNphfwmmVVTGGPDXAC9659-85-10 09:09:00 Test Item Value Reference Range Interpretation Comments Basophils (test code = 0.4 See_Comment [Aut omated message] The Basophils) system which ge nerated this result tra nsmitted reference range : <=1.0. The reference r samantha was not used to int erpret this result as normal/abnormal . [facility] GreenvilleYinbpqvJWFLOVZBGY7148-62-30 09:09:00 Test Item Value Reference Range Interpretation Comments Neutrophils # (test code = Neutrophils 4.0 1.5-8.1 #) [place] 796562-06-29 09:09:00 Test Item Value Reference Range Interpretation Comments Lymphocytes # (test code = Lymphocytes 0.5 1.0-5.5 #) [place] 796562-06-29 09:09:00 Test Item Value Reference Range Interpretation Comments Monocytes # (test code 0.2 See_Comment [Aut omated message] The = Monocytes #) system which generated this result tra nsmitted reference range : <=0.8. The reference r samantha was not used to int erpret this result as normal/abnormal . [facility] GreenvilleCeoofncSTLOGIKHHL9455-15-03 09:09:00 Test Item Value Reference Range Interpretation Comments Macrocyte (test code = 1+ *ABN*(6/29/22 Macrocyte) 4:09 AM) [place] 735922-06-29 09:09:00 Test Item Value Reference Range Interpretation Comments Interleukin 6 (test code = Interleukin 14.71 6) [place] 735922-06-29 09:09:00 Test Item Value Reference Range Interpretation Comments C-REACTIVE PROTEIN (test code = 95.9 C-REACTIVE PROTEIN) [facility]2022-06-29 09:09:00 Test Item Value Reference Range Interpretation Comments Ferritin Lvl (test code = Ferritin Lvl) 1543 22-275 [place] 509392-06-29 09:09:00 Test Item Value Reference Range Interpretation Comments Glucose Lvl (test code = Glucose Lvl) 288 70-99 [place] 509392-06-29 09:09:00 Test Item Value Reference Range Interpretation Comments BUN (test code = BUN) 40 7-22 [place] 509392-06-29 09:09:00 Test Item Value Reference Range Interpretation Comments Creatinine Lvl (test code = Creatinine 6.23 0.50-1.40 Lvl) [facility]2022-06-29 09:09:00 Test Item Value Reference Range Interpretation Comments Sodium Lvl (test code = Sodium Lvl) 134 135-145 [place] 509392-06-29 09:09:00 Test Item Value Reference Range Interpretation Comments Potassium Lvl (test code = Potassium 4.5 3.5-5.1 Lvl) [place] 509392-06-29 09:09:00 Test Item Value Reference Range Interpretation Comments Chloride Lvl (test code = Chloride Lvl) 96 95-109 [place] 509392-06-29 09:09:00 Test Item Value Reference Range Interpretation Comments CO2 (test code = CO2) 29 24-32 [place] 509392-06-29 09:09:00 Test Item Value Reference Range Interpretation Comments AGAP (test code = AGAP) 13.5 10.0-20.0 [place] 509392-06-29 09:09:00 Test Item Value Reference Range Interpretation Comments Calcium Lvl (test code = Calcium Lvl) 9.1 8.5-10.5 [place] 509392-06-29 09:09:00 Test Item Value Reference Range Interpretation Comments B/C Ratio (test code = B/C Ratio) 6 1 6-25 [facility] IEUWG2125-78-75 09:09:00 Test Item Value Reference Range Interpretation Comments Total Protein (test code = Total 6.3 6.4-8.4 Protein) [facility] CenterPlay[facility] NSTQO8429-90-35 09:09:00 Test Item Value Reference Range Interpretation Comments Albumin Lvl (test code = Albumin Lvl) 2.5 3.5-5.0 [facility] BASYZ6735-58-58 09:09:00 Test Item Value Reference Range Interpretation Comments Globulin (test code = Globulin) 3.8 2.7-4.2 [facility] NFORS4469-02-04 09:09:00 Test Item Value Reference Range Interpretation Comments A/G Ratio (test code = A/G Ratio) 0.7 1 0.7-1.6 [facility] PEUIN5858-85-52 09:09:00 Test Item Value Reference Range Interpretation Comments ALT (test code = ALT) 38 See_Comment [Auto mated message] The system which ge nerated this result transmit swathi reference range : <=65. The reference range was not used to interpr et this result as deny l/abnormal. [facility] YASEU9124-06-58 09:09:00 Test Item Value Reference Range Interpretation Comments AST (test code = AST) 31 See_Comment [Auto mated message] The system which ge nerated this result transmit swathi reference range : <=37. The reference range was not used to interpr et this result as deny l/abnormal. [facility] [employer] KVGFN2887-99-02 09:09:00 Test Item Value Reference Range Interpretation Comments Alk Phos (test code = Alk Phos) 357 39-136 [facility] YAAZA6662-25-46 09:09:00 Test Item Value Reference Range Interpretation Comments Bili Total (test code = Bili Total) 1.0 0.2-1.3 [facility] IFUMC7666-31-18 09:09:00 Test Item Value Reference Range Interpretation Comments eGFR (test code = eGFR) 8 [facility] VBPQP0692-86-74 09:09:00 Test Item Value Reference Range Interpretation Comments Magnesium Lvl (test code = Magnesium 2.0 1.8-2.4 Lvl) [facility]2022-06-29 09:09:00 Test Item Value Reference Range Interpretation Comments LDH (test code = LDH) 251 98-192 [facility]2022-06-29 09:09:00 Test Item Value Reference Range Interpretation Comments Procalcitonin Lvl (test 0.51 See_Comment [Au tomated message] code = Procalcitonin Lvl) Th e system which generated this result transmitted ref erence range: <=0.10. The reference range was not used to interpr et this result as normal/abnormal . [facility] GreenvilleLqcvgzwAXCJHVCLYG4733-30-61 09:09:00 Test Item Value Reference Range Interpretation Comments D-Dimer (test code = D-Dimer) 5.06 [place] 796562-06-29 09:09:00 Test Item Value Reference Range Interpretation Comments WBC (test code = WBC) 4.8 3.7-10.4 [facility] GreenvilleIoqvxqyLIZIBCBXQE2576-84-10 09:09:00 Test Item Value Reference Range Interpretation Comments RBC (test code = RBC) 2.14 4.70-6.10 [facility] GreenvilleRibdxhxRGBXBNDXOO5617-09-91 09:09:00 Test Item Value Reference Range Interpretation Comments Hgb (test code = Hgb) 7.7 14.0-18.0 [facility] GreenvilleUeejnkuHAFZLCVBBD4173-07-52 09:09:00 Test Item Value Reference Range Interpretation Comments Hct (test code = Hct) 22.8 42.0-54.0 [facility] GreenvilleEgkegtzAHTMAQJVXV7971-76-90 09:09:00 Test Item Value Reference Range Interpretation Comments MCV (test code = MCV) 106.5 80.0-94.0 [place] 796562-06-29 09:09:00 Test Item Value Reference Range Interpretation Comments MCH (test code = MCH) 36.1 pg 27.0-31.0 [facility] GreenvilleVtivczeJDAOYBQRTR7817-29-84 09:09:00 Test Item Value Reference Range Interpretation Comments MCHC (test code = MCHC) 33.9 32.0-36.0 [place] 796562-06-29 09:09:00 Test Item Value Reference Range Interpretation Comments RDW (test code = RDW) 21.8 11.5-14.5 [place] 796562-06-29 09:09:00 Test Item Value Reference Range Interpretation Comments Platelet (test code = Platelet) 176 133-450 [facility] GreenvilleIkxeiioUQMJZCMMLW8854-21-68 09:09:00 Test Item Value Reference Range Interpretation Comments MPV (test code = MPV) 8.2 7.4-10.4 [place] 796562-06-29 09:09:00 Test Item Value Reference Range Interpretation Comments Segs (test code = Segs) 83.6 45.0-75.0 [place] 796562-06-29 09:09:00 Test Item Value Reference Range Interpretation Comments Lymphocytes (test code = Lymphocytes) 10.7 20.0-40.0 [place] 796562-06-29 09:09:00 Test Item Value Reference Range Interpretation Comments Monocytes (test code = Monocytes) 4.9 2.0-12.0 [place] 796562-06-29 09:09:00 Test Item Value Reference Range Interpretation Comments Eosinophils (test code = 0.4 See_Comment [A utomated message] The Eosinophils) system which ge nerated this result tra nsmitted reference range : <=4.0. The reference r samantha was not used to int erpret this result as normal/abnormal . [facility] GreenvilleSiyfgzxKLVAGTYIVH5171-09-97 09:09:00 Test Item Value Reference Range Interpretation Comments Basophils (test code = 0.4 See_Comment [Aut omated message] The Basophils) system which ge nerated this result tra nsmitted reference range : <=1.0. The reference r samantha was not used to int erpret this result as normal/abnormal . [facility] GreenvilleRuwkemeCCEFQTVTBH5830-86-81 09:09:00 Test Item Value Reference Range Interpretation Comments Neutrophils # (test code = Neutrophils 4.0 1.5-8.1 #) [facility] GreenvilleTlclixhTOLODPIVZD3100-65-21 09:09:00 Test Item Value Reference Range Interpretation Comments Lymphocytes # (test code = Lymphocytes 0.5 1.0-5.5 #) [place] 796562-06-29 09:09:00 Test Item Value Reference Range Interpretation Comments Monocytes # (test code 0.2 See_Comment [Aut omated message] The = Monocytes #) system which generated this result tra nsmitted reference range : <=0.8. The reference r samantha was not used to int erpret this result as normal/abnormal . [facility] SurgeryGzsnxtaDANEVUAUHD8809-29-98 09:09:00 Test Item Value Reference Range Interpretation Comments Macrocyte (test code = 1+ *ABN*(11/26/21 Macrocyte) 4:09 AM) [facility] CenterTotazrmSVLQIXKJIN9911-71-03 09:09:00 Test Item Value Reference Range Interpretation Comments Interleukin 6 (test code = Interleukin 14.71 6) [place] 735922-06-29 09:09:00 Test Item Value Reference Range Interpretation Comments C-REACTIVE PROTEIN (test code = 95.9 C-REACTIVE PROTEIN) [facility]2022-06-29 09:09:00 Test Item Value Reference Range Interpretation Comments Ferritin Lvl (test code = Ferritin Lvl) 1543 22275 [facility]2022-06-29 09:09:00 Test Item Value Reference Range Interpretation Comments Glucose Lvl (test code = Glucose Lvl) 288 70-99 [facility]2022-06-29 09:09:00 Test Item Value Reference Range Interpretation Comments BUN (test code = BUN) 40 7-22 [facility]2022-06-29 09:09:00 Test Item Value Reference Range Interpretation Comments Creatinine Lvl (test code = Creatinine 6.23 0.50-1.40 Lvl) [facility]2022-06-29 09:09:00 Test Item Value Reference Range Interpretation Comments Sodium Lvl (test code = Sodium Lvl) 134 135-145 [facility]2022-06-29 09:09:00 Test Item Value Reference Range Interpretation Comments Potassium Lvl (test code = Potassium 4.5 3.5-5.1 Lvl) [facility]2022-06-29 09:09:00 Test Item Value Reference Range Interpretation Comments Chloride Lvl (test code = Chloride Lvl) 96 95-109 [place] 509392-06-29 09:09:00 Test Item Value Reference Range Interpretation Comments CO2 (test code = CO2) 29 24-32 [place] 509392-06-29 09:09:00 Test Item Value Reference Range Interpretation Comments AGAP (test code = AGAP) 13.5 10.0-20.0 [place] 509392-06-29 09:09:00 Test Item Value Reference Range Interpretation Comments Calcium Lvl (test code = Calcium Lvl) 9.1 8.5-10.5 [place] 509392-06-29 09:09:00 Test Item Value Reference Range Interpretation Comments B/C Ratio (test code = B/C Ratio) 6 1 6-25 [place] 509392-06-29 09:09:00 Test Item Value Reference Range Interpretation Comments Total Protein (test code = Total 6.3 6.4-8.4 Protein) [place] 509392-06-29 09:09:00 Test Item Value Reference Range Interpretation Comments Albumin Lvl (test code = Albumin Lvl) 2.5 3.5-5.0 [place] [address]-06-29 09:09:00 Test Item Value Reference Range Interpretation Comments Globulin (test code = Globulin) 3.8 2.7-4.2 [place] 509392-06-29 09:09:00 Test Item Value Reference Range Interpretation Comments A/G Ratio (test code = A/G Ratio) 0.7 1 0.7-1.6 [place] 509392-06-29 09:09:00 Test Item Value Reference Range Interpretation Comments ALT (test code = ALT) 38 See_Comment [Auto mated message] The system which ge nerated this result transmit swathi reference range : <=65. The reference range was not used to interpr et this result as deny l/abnormal. [place] 509392-06-29 09:09:00 Test Item Value Reference Range Interpretation Comments AST (test code = AST) 31 See_Comment [Auto mated message] The system which ge nerated this result transmit swathi reference range : <=37. The reference range was not used to interpr et this result as deny l/abnormal. [place] 509392-06-29 09:09:00 Test Item Value Reference Range Interpretation Comments Alk Phos (test code = Alk Phos) 357 39-136 [place] 509392-06-29 09:09:00 Test Item Value Reference Range Interpretation Comments Bili Total (test code = Bili Total) 1.0 0.2-1.3 [place] 509392-06-29 09:09:00 Test Item Value Reference Range Interpretation Comments eGFR (test code = eGFR) 8 [facility]2022-06-29 09:09:00 Test Item Value Reference Range Interpretation Comments Magnesium Lvl (test code = Magnesium 2.0 1.8-2.4 Lvl) [facility]2022-06-29 09:09:00 Test Item Value Reference Range Interpretation Comments LDH (test code = LDH) 251 98-192 [facility]2022-06-29 09:09:00 Test Item Value Reference Range Interpretation Comments Procalcitonin Lvl (test 0.51 See_Comment [Au tomated message] code = Procalcitonin Lvl) e system which generated this result transmitted ref erence range: <=0.10. The reference range was not used to interpr et this result as normal/abnormal . [facility]villeMvyvtbhQVSXOJJSKW0902-01-25 09:09:00 Test Item Value Reference Range Interpretation Comments D-Dimer (test code = D-Dimer) 5.06 [place] 796562-06-29 09:09:00 Test Item Value Reference Range Interpretation Comments WBC (test code = WBC) 4.8 3.7-10.4 [place] 796562-06-29 09:09:00 Test Item Value Reference Range Interpretation Comments RBC (test code = RBC) 2.14 4.70-6.10 [place] 796562-06-29 09:09:00 Test Item Value Reference Range Interpretation Comments Hgb (test code = Hgb) 7.7 14.0-18.0 [place] 796562-06-29 09:09:00 Test Item Value Reference Range Interpretation Comments Hct (test code = Hct) 22.8 42.0-54.0 [place] 796562-06-29 09:09:00 Test Item Value Reference Range Interpretation Comments MCV (test code = MCV) 106.5 80.0-94.0 [place] 796562-06-29 09:09:00 Test Item Value Reference Range Interpretation Comments MCH (test code = MCH) 36.1 pg 27.0-31.0 [place] 796562-06-29 09:09:00 Test Item Value Reference Range Interpretation Comments MCHC (test code = MCHC) 33.9 32.0-36.0 [place] [address]-06-29 09:09:00 Test Item Value Reference Range Interpretation Comments RDW (test code = RDW) 21.8 11.5-14.5 [place] 796562-06-29 09:09:00 Test Item Value Reference Range Interpretation Comments Platelet (test code = Platelet) 176 133-450 [place] 796562-06-29 09:09:00 Test Item Value Reference Range Interpretation Comments MPV (test code = MPV) 8.2 7.4-10.4 [place] 796562-06-29 09:09:00 Test Item Value Reference Range Interpretation Comments Segs (test code = Segs) 83.6 45.0-75.0 [place] 796562-06-29 09:09:00 Test Item Value Reference Range Interpretation Comments Lymphocytes (test code = Lymphocytes) 10.7 20.0-40.0 [place] 796562-06-29 09:09:00 Test Item Value Reference Range Interpretation Comments Monocytes (test code = Monocytes) 4.9 2.0-12.0 [facility] GreenvilleYkkmetjOMYYQFDGWH0104-55-49 09:09:00 Test Item Value Reference Range Interpretation Comments Eosinophils (test code = 0.4 See_Comment [A utomated message] The Eosinophils) system which ge nerated this result tra nsmitted reference range : <=4.0. The reference r samantha was not used to int erpret this result as normal/abnormal . [place] 796562-06-29 09:09:00 Test Item Value Reference Range Interpretation Comments Basophils (test code = 0.4 See_Comment [Aut omated message] The Basophils) system which ge nerated this result tra nsmitted reference range : <=1.0. The reference r samantha was not used to int erpret this result as normal/abnormal . [facility] GreenvilleElrfzxjFBRFBYTFPL6834-98-54 09:09:00 Test Item Value Reference Range Interpretation Comments Neutrophils # (test code = Neutrophils 4.0 1.5-8.1 #) [facility] GreenvilleRvrwajuWGTSVVYOIT1518-85-48 09:09:00 Test Item Value Reference Range Interpretation Comments Lymphocytes # (test code = Lymphocytes 0.5 1.0-5.5 #) [place] 796562-06-29 09:09:00 Test Item Value Reference Range Interpretation Comments Monocytes # (test code 0.2 See_Comment [Aut omated message] The = Monocytes #) system which generated this result tra nsmitted reference range : <=0.8. The reference r samantha was not used to int erpret this result as normal/abnormal . [facility]villeShxgsgiUCQMJWHEHN4903-92-85 09:09:00 Test Item Value Reference Range Interpretation Comments Macrocyte (test code = 1+ *ABN*(11/26/21 Macrocyte) 4:09 AM) [facility]37[facility]50-19 09:09:00 Test Item Value Reference Range Interpretation Comments Interleukin 6 (test code = Interleukin 14.71 6) [place] 735922-06-29 09:09:00 Test Item Value Reference Range Interpretation Comments C-REACTIVE PROTEIN (test code = 95.9 C-REACTIVE PROTEIN) [facility]2022-06-29 09:09:00 Test Item Value Reference Range Interpretation Comments Ferritin Lvl (test code = Ferritin Lvl) 1543 22275 [facility]2022-06-29 09:09:00 Test Item Value Reference Range Interpretation Comments Glucose Lvl (test code = Glucose Lvl) 288 70-99 [facility]2022-06-29 09:09:00 Test Item Value Reference Range Interpretation Comments BUN (test code = BUN) 40 7-22 [facility]2022-06-29 09:09:00 Test Item Value Reference Range Interpretation Comments Creatinine Lvl (test code = Creatinine 6.23 0.50-1.40 Lvl) [facility]2022-06-29 09:09:00 Test Item Value Reference Range Interpretation Comments Sodium Lvl (test code = Sodium Lvl) 134 135-145 [place] 509392-06-29 09:09:00 Test Item Value Reference Range Interpretation Comments Potassium Lvl (test code = Potassium 4.5 3.5-5.1 Lvl) [place] 509392-06-29 09:09:00 Test Item Value Reference Range Interpretation Comments Chloride Lvl (test code = Chloride Lvl) 96 95-109 [place] 509392-06-29 09:09:00 Test Item Value Reference Range Interpretation Comments CO2 (test code = CO2) 29 24-32 [place] 509392-06-29 09:09:00 Test Item Value Reference Range Interpretation Comments AGAP (test code = AGAP) 13.5 10.0-20.0 [place] 509392-06-29 09:09:00 Test Item Value Reference Range Interpretation Comments Calcium Lvl (test code = Calcium Lvl) 9.1 8.5-10.5 [place] 509392-06-29 09:09:00 Test Item Value Reference Range Interpretation Comments B/C Ratio (test code = B/C Ratio) 6 1 6-25 [place] [address]-06-29 09:09:00 Test Item Value Reference Range Interpretation Comments Total Protein (test code = Total 6.3 6.4-8.4 Protein) [place] 509392-06-29 09:09:00 Test Item Value Reference Range Interpretation Comments Albumin Lvl (test code = Albumin Lvl) 2.5 3.5-5.0 [place] 509392-06-29 09:09:00 Test Item Value Reference Range Interpretation Comments Globulin (test code = Globulin) 3.8 2.7-4.2 [place] 509392-06-29 09:09:00 Test Item Value Reference Range Interpretation Comments A/G Ratio (test code = A/G Ratio) 0.7 1 0.7-1.6 [place] 509392-06-29 09:09:00 Test Item Value Reference Range Interpretation Comments ALT (test code = ALT) 38 See_Comment [Auto mated message] The system which ge nerated this result transmit swathi reference range : <=65. The reference range was not used to interpr et this result as deny l/abnormal. [place] 509392-06-29 09:09:00 Test Item Value Reference Range Interpretation Comments AST (test code = AST) 31 See_Comment [Auto mated message] The system which ge nerated this result transmit swathi reference range : <=37. The reference range was not used to interpr et this result as deny l/abnormal. [place] 509392-06-29 09:09:00 Test Item Value Reference Range Interpretation Comments Alk Phos (test code = Alk Phos) 357 39-136 [place] 509392-06-29 09:09:00 Test Item Value Reference Range Interpretation Comments Bili Total (test code = Bili Total) 1.0 0.2-1.3 [place] 509392-06-29 09:09:00 Test Item Value Reference Range Interpretation Comments eGFR (test code = eGFR) 8 [facility]2022-06-29 09:09:00 Test Item Value Reference Range Interpretation Comments Magnesium Lvl (test code = Magnesium 2.0 1.8-2.4 Lvl) [place] 509392-06-29 09:09:00 Test Item Value Reference Range Interpretation Comments LDH (test code = LDH) 251 98-192 [facility]2022-06-29 09:09:00 Test Item Value Reference Range Interpretation Comments Procalcitonin Lvl (test 0.51 See_Comment [Au tomated message] code = Procalcitonin Lvl) e system which generated this result transmitted ref erence range: <=0.10. The reference range was not used to interpr et this result as normal/abnormal . [place] 796562-06-29 09:09:00 Test Item Value Reference Range Interpretation Comments D-Dimer (test code = D-Dimer) 5.06 [place] [address]-06-29 09:09:00 Test Item Value Reference Range Interpretation Comments WBC (test code = WBC) 4.8 3.7-10.4 [place] 796562-06-29 09:09:00 Test Item Value Reference Range Interpretation Comments RBC (test code = RBC) 2.14 4.70-6.10 [place] 796562-06-29 09:09:00 Test Item Value Reference Range Interpretation Comments Hgb (test code = Hgb) 7.7 14.0-18.0 [place] [address]-06-29 09:09:00 Test Item Value Reference Range Interpretation Comments Hct (test code = Hct) 22.8 42.0-54.0 [place] [address]-06-29 09:09:00 Test Item Value Reference Range Interpretation Comments MCV (test code = MCV) 106.5 80.0-94.0 [place] [address]-06-29 09:09:00 Test Item Value Reference Range Interpretation Comments MCH (test code = MCH) 36.1 pg 27.0-31.0 [place] 796562-06-29 09:09:00 Test Item Value Reference Range Interpretation Comments MCHC (test code = MCHC) 33.9 32.0-36.0 [place] 796562-06-29 09:09:00 Test Item Value Reference Range Interpretation Comments RDW (test code = RDW) 21.8 11.5-14.5 [place] 796562-06-29 09:09:00 Test Item Value Reference Range Interpretation Comments Platelet (test code = Platelet) 176 133-450 [facility]villeZffpsuiROSAZKQJQQ8396-57-96 09:09:00 Test Item Value Reference Range Interpretation Comments MPV (test code = MPV) 8.2 7.4-10.4 [place] 796562-06-29 09:09:00 Test Item Value Reference Range Interpretation Comments Segs (test code = Segs) 83.6 45.0-75.0 [place] 796562-06-29 09:09:00 Test Item Value Reference Range Interpretation Comments Lymphocytes (test code = Lymphocytes) 10.7 20.0-40.0 [place] 796562-06-29 09:09:00 Test Item Value Reference Range Interpretation Comments Monocytes (test code = Monocytes) 4.9 2.0-12.0 [facility] GreenvilleJkudpkmVOQNGIVGKW5021-95-86 09:09:00 Test Item Value Reference Range Interpretation Comments Eosinophils (test code = 0.4 See_Comment [A utomated message] The Eosinophils) system which ge nerated this result tra nsmitted reference range : <=4.0. The reference r samantha was not used to int erpret this result as normal/abnormal . [facility] GreenvilleRlyzxzvLHUVNJTHUE3266-01-06 09:09:00 Test Item Value Reference Range Interpretation Comments Basophils (test code = 0.4 See_Comment [Aut omated message] The Basophils) system which ge nerated this result tra nsmitted reference range : <=1.0. The reference r samantha was not used to int erpret this result as normal/abnormal . [place] 796562-06-29 09:09:00 Test Item Value Reference Range Interpretation Comments Neutrophils # (test code = Neutrophils 4.0 1.5-8.1 #) [facility] GreenvilleYnajrqrDFUQQRCMNU8459-95-66 09:09:00 Test Item Value Reference Range Interpretation Comments Lymphocytes # (test code = Lymphocytes 0.5 1.0-5.5 #) [facility] GreenvilleYhkmhtdKSSSCFSSIU0403-51-82 09:09:00 Test Item Value Reference Range Interpretation Comments Monocytes # (test code 0.2 See_Comment [Aut omated message] The = Monocytes #) system which generated this result tra nsmitted reference range : <=0.8. The reference r samantha was not used to int erpret this result as normal/abnormal . [facility] GreenvillePupandtQGBOCCLSVX9775-52-07 09:09:00 Test Item Value Reference Range Interpretation Comments Macrocyte (test code = 1+ *ABN*(11/26/21 Macrocyte) 4:09 AM) [place] 735922-06-29 09:09:00 Test Item Value Reference Range Interpretation Comments Interleukin 6 (test code = Interleukin 14.71 6) [place] 735922-06-29 09:09:00 Test Item Value Reference Range Interpretation Comments C-REACTIVE PROTEIN (test code = 95.9 C-REACTIVE PROTEIN) [facility]2022-06-29 09:09:00 Test Item Value Reference Range Interpretation Comments Ferritin Lvl (test code = Ferritin Lvl) 1543 22-275 [facility]2022-06-29 09:09:00 Test Item Value Reference Range Interpretation Comments Glucose Lvl (test code = Glucose Lvl) 288 70-99 [facility]2022-06-29 09:09:00 Test Item Value Reference Range Interpretation Comments BUN (test code = BUN) 40 7-22 [place] 509392-06-29 09:09:00 Test Item Value Reference Range Interpretation Comments Creatinine Lvl (test code = Creatinine 6.23 0.50-1.40 Lvl) [place] 509392-06-29 09:09:00 Test Item Value Reference Range Interpretation Comments Sodium Lvl (test code = Sodium Lvl) 134 135-145 [facility]2022-06-29 09:09:00 Test Item Value Reference Range Interpretation Comments Potassium Lvl (test code = Potassium 4.5 3.5-5.1 Lvl) [place] 509392-06-29 09:09:00 Test Item Value Reference Range Interpretation Comments Chloride Lvl (test code = Chloride Lvl) 96 95-109 [facility]2022-06-29 09:09:00 Test Item Value Reference Range Interpretation Comments CO2 (test code = CO2) 29 24-32 [place] 509392-06-29 09:09:00 Test Item Value Reference Range Interpretation Comments AGAP (test code = AGAP) 13.5 10.0-20.0 [place] 509392-06-29 09:09:00 Test Item Value Reference Range Interpretation Comments Calcium Lvl (test code = Calcium Lvl) 9.1 8.5-10.5 [place] 509392-06-29 09:09:00 Test Item Value Reference Range Interpretation Comments B/C Ratio (test code = B/C Ratio) 6 1 6-25 [place] 509392-06-29 09:09:00 Test Item Value Reference Range Interpretation Comments Total Protein (test code = Total 6.3 6.4-8.4 Protein) [place] 509392-06-29 09:09:00 Test Item Value Reference Range Interpretation Comments Albumin Lvl (test code = Albumin Lvl) 2.5 3.5-5.0 [place] 509392-06-29 09:09:00 Test Item Value Reference Range Interpretation Comments Globulin (test code = Globulin) 3.8 2.7-4.2 [facility]2022-06-29 09:09:00 Test Item Value Reference Range Interpretation Comments A/G Ratio (test code = A/G Ratio) 0.7 1 0.7-1.6 [place] 509392-06-29 09:09:00 Test Item Value Reference Range Interpretation Comments ALT (test code = ALT) 38 See_Comment [Auto mated message] The system which ge nerated this result transmit swathi reference range : <=65. The reference range was not used to interpr et this result as deny l/abnormal. [place] 509392-06-29 09:09:00 Test Item Value Reference Range Interpretation Comments AST (test code = AST) 31 See_Comment [Auto mated message] The system which ge nerated this result transmit swathi reference range : <=37. The reference range was not used to interpr et this result as deny l/abnormal. [address]06-29 09:09:00 Test Item Value Reference Range Interpretation Comments Alk Phos (test code = Alk Phos) 357 39-136 [place] 509392-06-29 09:09:00 Test Item Value Reference Range Interpretation Comments Bili Total (test code = Bili Total) 1.0 0.2-1.3 [place] 509392-06-29 09:09:00 Test Item Value Reference Range Interpretation Comments eGFR (test code = eGFR) 8 [place] 509392-06-29 09:09:00 Test Item Value Reference Range Interpretation Comments Magnesium Lvl (test code = Magnesium 2.0 1.8-2.4 Lvl) [place] 509392-06-29 09:09:00 Test Item Value Reference Range Interpretation Comments LDH (test code = LDH) 251 98-192 [place] 509392-06-29 09:09:00 Test Item Value Reference Range Interpretation Comments Procalcitonin Lvl (test 0.51 See_Comment [Au tomated message] code = Procalcitonin Lvl) e system which generated this result transmitted ref erence range: <=0.10. The reference range was not used to interpr et this result as normal/abnormal . [facility] GreenvilleRopcchjFGMVBNDYYL7860-83-10 09:09:00 Test Item Value Reference Range Interpretation Comments D-Dimer (test code = D-Dimer) 5.06 [place] [address]-06-29 09:09:00 Test Item Value Reference Range Interpretation Comments WBC (test code = WBC) 4.8 3.7-10.4 [place] 796562-06-29 09:09:00 Test Item Value Reference Range Interpretation Comments RBC (test code = RBC) 2.14 4.70-6.10 [place] [address]-06-29 09:09:00 Test Item Value Reference Range Interpretation Comments Hgb (test code = Hgb) 7.7 14.0-18.0 [place] [address]-06-29 09:09:00 Test Item Value Reference Range Interpretation Comments Hct (test code = Hct) 22.8 42.0-54.0 [place] [address]-06-29 09:09:00 Test Item Value Reference Range Interpretation Comments MCV (test code = MCV) 106.5 80.0-94.0 [facility] GreenvilleSdarwmjZFGVGQBJQX5584-47-43 09:09:00 Test Item Value Reference Range Interpretation Comments MCH (test code = MCH) 36.1 pg 27.0-31.0 [facility] GreenvilleYcbkabuJASOGRMHVZ6615-25-85 09:09:00 Test Item Value Reference Range Interpretation Comments MCHC (test code = MCHC) 33.9 32.0-36.0 [facility] GreenvilleXizjakgPTUAOOETQI2549-24-44 09:09:00 Test Item Value Reference Range Interpretation Comments RDW (test code = RDW) 21.8 11.5-14.5 [facility] GreenvilleUngsbiuIIMBIMBBEM7505-27-85 09:09:00 Test Item Value Reference Range Interpretation Comments Platelet (test code = Platelet) 176 133-450 [facility] GreenvilleOjbslrmLFDIYBSUAM8040-64-86 09:09:00 Test Item Value Reference Range Interpretation Comments MPV (test code = MPV) 8.2 7.4-10.4 [facility] GreenvilleKxqzxfcRWWNQMBQCY2003-02-24 09:09:00 Test Item Value Reference Range Interpretation Comments Segs (test code = Segs) 83.6 45.0-75.0 [facility] GreenvilleObmczctQXEVBJPMUQ8598-93-04 09:09:00 Test Item Value Reference Range Interpretation Comments Lymphocytes (test code = Lymphocytes) 10.7 20.0-40.0 [facility] GreenvilleRxzntugJMKODMQUIC1398-42-88 09:09:00 Test Item Value Reference Range Interpretation Comments Monocytes (test code = Monocytes) 4.9 2.0-12.0 [facility]2022-06-29 09:09:00 Test Item Value Reference Range Interpretation Comments Ferritin Lvl (test code = Ferritin Lvl) 1543 22275 [facility]2022-06-29 09:09:00 Test Item Value Reference Range Interpretation Comments Glucose Lvl (test code = Glucose Lvl) 288 70-99 [facility]2022-06-29 09:09:00 Test Item Value Reference Range Interpretation Comments BUN (test code = BUN) 40 7-22 [facility]2022-06-29 09:09:00 Test Item Value Reference Range Interpretation Comments Creatinine Lvl (test code = Creatinine 6.23 0.50-1.40 Lvl) [facility]2022-06-29 09:09:00 Test Item Value Reference Range Interpretation Comments Sodium Lvl (test code = Sodium Lvl) 134 135-145 [place] 509392-06-29 09:09:00 Test Item Value Reference Range Interpretation Comments Potassium Lvl (test code = Potassium 4.5 3.5-5.1 Lvl) [place] 509392-06-29 09:09:00 Test Item Value Reference Range Interpretation Comments Chloride Lvl (test code = Chloride Lvl) 96 95-109 [facility]2022-06-29 09:09:00 Test Item Value Reference Range Interpretation Comments CO2 (test code = CO2) 29 24-32 [facility] GreenvilleLjztnyuZDDPJPTYBJ5041-80-11 09:09:00 Test Item Value Reference Range Interpretation Comments Eosinophils (test code = 0.4 See_Comment [A utomated message] The Eosinophils) system which ge nerated this result tra nsmitted reference range : <=4.0. The reference r samantha was not used to int erpret this result as normal/abnormal . [facility]2022-06-29 09:09:00 Test Item Value Reference Range Interpretation Comments AGAP (test code = AGAP) 13.5 10.0-20.0 [place] 509392-06-29 09:09:00 Test Item Value Reference Range Interpretation Comments Calcium Lvl (test code = Calcium Lvl) 9.1 8.5-10.5 [facility]2022-06-29 09:09:00 Test Item Value Reference Range Interpretation Comments B/C Ratio (test code = B/C Ratio) 6 1 6-25 [place] 509392-06-29 09:09:00 Test Item Value Reference Range Interpretation Comments Total Protein (test code = Total 6.3 6.4-8.4 Protein) [place] 509392-06-29 09:09:00 Test Item Value Reference Range Interpretation Comments Albumin Lvl (test code = Albumin Lvl) 2.5 3.5-5.0 [place] 509392-06-29 09:09:00 Test Item Value Reference Range Interpretation Comments Globulin (test code = Globulin) 3.8 2.7-4.2 [place] 509392-06-29 09:09:00 Test Item Value Reference Range Interpretation Comments A/G Ratio (test code = A/G Ratio) 0.7 1 0.7-1.6 [place] 509392-06-29 09:09:00 Test Item Value Reference Range Interpretation Comments ALT (test code = ALT) 38 See_Comment [Auto mated message] The system which ge nerated this result transmit swathi reference range : <=65. The reference range was not used to interpr et this result as deny l/abnormal. [place] 509392-06-29 09:09:00 Test Item Value Reference Range Interpretation Comments AST (test code = AST) 31 See_Comment [Auto mated message] The system which ge nerated this result transmit swathi reference range : <=37. The reference range was not used to interpr et this result as deny l/abnormal. [place] 509392-06-29 09:09:00 Test Item Value Reference Range Interpretation Comments Alk Phos (test code = Alk Phos) 357 39-136 [facility] GreenvilleWssuxrtMKXYKVDCDF7910-18-09 09:09:00 Test Item Value Reference Range Interpretation Comments Basophils (test code = 0.4 See_Comment [Aut omated message] The Basophils) system which ge nerated this result tra nsmitted reference range : <=1.0. The reference r samantha was not used to int erpret this result as normal/abnormal . [facility]2022-06-29 09:09:00 Test Item Value Reference Range Interpretation Comments Bili Total (test code = Bili Total) 1.0 0.2-1.3 [place] 509392-06-29 09:09:00 Test Item Value Reference Range Interpretation Comments eGFR (test code = eGFR) 8 [place] [address]-06-29 09:09:00 Test Item Value Reference Range Interpretation Comments Magnesium Lvl (test code = Magnesium 2.0 1.8-2.4 Lvl) [place] 509392-06-29 09:09:00 Test Item Value Reference Range Interpretation Comments LDH (test code = LDH) 251 98-192 [place] 509392-06-29 09:09:00 Test Item Value Reference Range Interpretation Comments Procalcitonin Lvl (test 0.51 See_Comment [Au tomated message] code = Procalcitonin Lvl) Th e system which generated this result transmitted ref erence range: <=0.10. The reference range was not used to interpr et this result as normal/abnormal . [facility] GreenvilleOfjwoipCODHSUSUDM6655-99-73 09:09:00 Test Item Value Reference Range Interpretation Comments D-Dimer (test code = D-Dimer) 5.06 [facility] GreenvilleJupfenlEKLFASLGWJ6486-46-41 09:09:00 Test Item Value Reference Range Interpretation Comments WBC (test code = WBC) 4.8 3.7-10.4 [facility] GreenvilleJpgrhtbXKEPRWOSLN0177-09-11 09:09:00 Test Item Value Reference Range Interpretation Comments RBC (test code = RBC) 2.14 4.70-6.10 [place] 796562-06-29 09:09:00 Test Item Value Reference Range Interpretation Comments Hgb (test code = Hgb) 7.7 14.0-18.0 [place] [address]-06-29 09:09:00 Test Item Value Reference Range Interpretation Comments Hct (test code = Hct) 22.8 42.0-54.0 [place] 796562-06-29 09:09:00 Test Item Value Reference Range Interpretation Comments Neutrophils # (test code = Neutrophils 4.0 1.5-8.1 #) [facility] GreenvilleSuvhtkwIMJXOQXWPJ3286-55-42 09:09:00 Test Item Value Reference Range Interpretation Comments MCV (test code = MCV) 106.5 80.0-94.0 [place] 796562-06-29 09:09:00 Test Item Value Reference Range Interpretation Comments MCH (test code = MCH) 36.1 pg 27.0-31.0 [facility] GreenvilleDmmmlhrHJVDWKAROO6743-08-71 09:09:00 Test Item Value Reference Range Interpretation Comments MCHC (test code = MCHC) 33.9 32.0-36.0 [place] 796562-06-29 09:09:00 Test Item Value Reference Range Interpretation Comments RDW (test code = RDW) 21.8 11.5-14.5 [place] 796562-06-29 09:09:00 Test Item Value Reference Range Interpretation Comments Platelet (test code = Platelet) 176 133-450 [facility] GreenvilleRxuwnjsRSOPQQSDKN7976-46-29 09:09:00 Test Item Value Reference Range Interpretation Comments MPV (test code = MPV) 8.2 7.4-10.4 [place] 796562-06-29 09:09:00 Test Item Value Reference Range Interpretation Comments Segs (test code = Segs) 83.6 45.0-75.0 [place] 796562-06-29 09:09:00 Test Item Value Reference Range Interpretation Comments Lymphocytes (test code = Lymphocytes) 10.7 20.0-40.0 [place] 796562-06-29 09:09:00 Test Item Value Reference Range Interpretation Comments Monocytes (test code = Monocytes) 4.9 2.0-12.0 [place] [address]-06-29 09:09:00 Test Item Value Reference Range Interpretation Comments Eosinophils (test code = 0.4 See_Comment [A utomated message] The Eosinophils) system which ge nerated this result tra nsmitted reference range : <=4.0. The reference r samantha was not used to int erpret this result as normal/abnormal . [facility] GreenvilleCbmxakwAFVUGAHBOZ9558-41-07 09:09:00 Test Item Value Reference Range Interpretation Comments Lymphocytes # (test code = Lymphocytes 0.5 1.0-5.5 #) [facility] GreenvilleVauejejHYSCJRXTBR8962-28-04 09:09:00 Test Item Value Reference Range Interpretation Comments Basophils (test code = 0.4 See_Comment [Aut omated message] The Basophils) system which ge nerated this result tra nsmitted reference range : <=1.0. The reference r samantha was not used to int erpret this result as normal/abnormal . [facility] GreenvilleJcuhhlmAWAUFRIWUE8820-73-91 09:09:00 Test Item Value Reference Range Interpretation Comments Neutrophils # (test code = Neutrophils 4.0 1.5-8.1 #) [place] 796562-06-29 09:09:00 Test Item Value Reference Range Interpretation Comments Lymphocytes # (test code = Lymphocytes 0.5 1.0-5.5 #) [place] 796562-06-29 09:09:00 Test Item Value Reference Range Interpretation Comments Monocytes # (test code 0.2 See_Comment [Aut omated message] The = Monocytes #) system which generated this result tra nsmitted reference range : <=0.8. The reference r samantha was not used to int erpret this result as normal/abnormal . [facility] GreenvilleHohglfsOVJJTBSJVW8098-03-48 09:09:00 Test Item Value Reference Range Interpretation Comments Macrocyte (test code = 1+ *ABN*(11/26/21 Macrocyte) 4:09 AM) [facility] ClubZmttbevKVONDLWFNJ9783-19-68 09:09:00 Test Item Value Reference Range Interpretation Comments Interleukin 6 (test code = Interleukin 14.71 6) [facility] ClubVbacpztTDCWAZYJBZ0965-23-90 09:09:00 Test Item Value Reference Range Interpretation Comments C-REACTIVE PROTEIN (test code = 95.9 C-REACTIVE PROTEIN) [facility] GreenvilleMdkuvyyFIWESBEBMQ2941-86-78 09:09:00 Test Item Value Reference Range Interpretation Comments Monocytes # (test code 0.2 See_Comment [Aut omated message] The = Monocytes #) system which generated this result tra nsmitted reference range : <=0.8. The reference r samantha was not used to int erpret this result as normal/abnormal . [facility] GreenvilleZobzcpgSVCSUWXAXN3747-79-39 09:09:00 Test Item Value Reference Range Interpretation Comments Macrocyte (test code = 1+ *ABN*(11/26/21 Macrocyte) 4:09 AM) [facility] ClubVldmwriKQCVYXUQYU8878-63-52 09:09:00 Test Item Value Reference Range Interpretation Comments Interleukin 6 (test code = Interleukin 14.71 6) [facility] ClubSqwyowlNRSTXBUHYR1675-79-84 09:09:00 Test Item Value Reference Range Interpretation Comments C-REACTIVE PROTEIN (test code = 95.9 C-REACTIVE PROTEIN) [facility]2022-06-29 09:09:00 Test Item Value Reference Range Interpretation Comments Ferritin Lvl (test code = Ferritin Lvl) 1543 22275 [facility]2022-06-29 09:09:00 Test Item Value Reference Range Interpretation Comments Glucose Lvl (test code = Glucose Lvl) 288 70-99 [facility]2022-06-29 09:09:00 Test Item Value Reference Range Interpretation Comments BUN (test code = BUN) 40 7-22 [facility]2022-06-29 09:09:00 Test Item Value Reference Range Interpretation Comments Creatinine Lvl (test code = Creatinine 6.23 0.50-1.40 Lvl) [place] 509392-06-29 09:09:00 Test Item Value Reference Range Interpretation Comments Sodium Lvl (test code = Sodium Lvl) 134 135-145 [place] 509392-06-29 09:09:00 Test Item Value Reference Range Interpretation Comments Potassium Lvl (test code = Potassium 4.5 3.5-5.1 Lvl) [place] 509392-06-29 09:09:00 Test Item Value Reference Range Interpretation Comments Chloride Lvl (test code = Chloride Lvl) 96 95-109 [place] 509392-06-29 09:09:00 Test Item Value Reference Range Interpretation Comments CO2 (test code = CO2) 29 24-32 [place] 509392-06-29 09:09:00 Test Item Value Reference Range Interpretation Comments AGAP (test code = AGAP) 13.5 10.0-20.0 [place] 509392-06-29 09:09:00 Test Item Value Reference Range Interpretation Comments Calcium Lvl (test code = Calcium Lvl) 9.1 8.5-10.5 [place] 509392-06-29 09:09:00 Test Item Value Reference Range Interpretation Comments B/C Ratio (test code = B/C Ratio) 6 1 6-25 [place] 509392-06-29 09:09:00 Test Item Value Reference Range Interpretation Comments Total Protein (test code = Total 6.3 6.4-8.4 Protein) [place] 509392-06-29 09:09:00 Test Item Value Reference Range Interpretation Comments Albumin Lvl (test code = Albumin Lvl) 2.5 3.5-5.0 [place] 509392-06-29 09:09:00 Test Item Value Reference Range Interpretation Comments Globulin (test code = Globulin) 3.8 2.7-4.2 [place] 509392-06-29 09:09:00 Test Item Value Reference Range Interpretation Comments A/G Ratio (test code = A/G Ratio) 0.7 1 0.7-1.6 [place] 509392-06-29 09:09:00 Test Item Value Reference Range Interpretation Comments ALT (test code = ALT) 38 See_Comment [Auto mated message] The system which ge nerated this result transmit swathi reference range : <=65. The reference range was not used to interpr et this result as deny l/abnormal. [facility] [id number] 09:09:00 Test Item Value Reference Range Interpretation Comments AST (test code = AST) 31 See_Comment [Auto mated message] The system which ge nerated this result transmit swathi reference range : <=37. The reference range was not used to interpr et this result as deny l/abnormal. [place] 509392-06-29 09:09:00 Test Item Value Reference Range Interpretation Comments Alk Phos (test code = Alk Phos) 357 39-136 [facility] [id number] 09:09:00 Test Item Value Reference Range Interpretation Comments Bili Total (test code = Bili Total) 1.0 0.2-1.3 [place] 509392-06-29 09:09:00 Test Item Value Reference Range Interpretation Comments eGFR (test code = eGFR) 8 [facility] [id number] 09:09:00 Test Item Value Reference Range Interpretation Comments Magnesium Lvl (test code = Magnesium 2.0 1.8-2.4 Lvl) [place] 509392-06-29 09:09:00 Test Item Value Reference Range Interpretation Comments LDH (test code = LDH) 251 98-192 [facility] [id number] 09:09:00 Test Item Value Reference Range Interpretation Comments Procalcitonin Lvl (test 0.51 See_Comment [Au tomated message] code = Procalcitonin Lvl) Th e system which generated this result transmitted ref erence range: <=0.10. The reference range was not used to interpr et this result as normal/abnormal . [facility] CenterPzaweolHHCDQGBNXP7786-32-78 09:09:00 Test Item Value Reference Range Interpretation Comments D-Dimer (test code = D-Dimer) 5.06 [place] [address]-06-29 09:09:00 Test Item Value Reference Range Interpretation Comments WBC (test code = WBC) 4.8 3.7-10.4 [place] 796562-06-29 09:09:00 Test Item Value Reference Range Interpretation Comments RBC (test code = RBC) 2.14 4.70-6.10 [place] [address]-06-29 09:09:00 Test Item Value Reference Range Interpretation Comments Hgb (test code = Hgb) 7.7 14.0-18.0 [place] 796562-06-29 09:09:00 Test Item Value Reference Range Interpretation Comments Hct (test code = Hct) 22.8 42.0-54.0 [place] 796562-06-29 09:09:00 Test Item Value Reference Range Interpretation Comments MCV (test code = MCV) 106.5 80.0-94.0 [place] 796562-06-29 09:09:00 Test Item Value Reference Range Interpretation Comments MCH (test code = MCH) 36.1 pg 27.0-31.0 [place] 796562-06-29 09:09:00 Test Item Value Reference Range Interpretation Comments MCHC (test code = MCHC) 33.9 32.0-36.0 [place] 796562-06-29 09:09:00 Test Item Value Reference Range Interpretation Comments RDW (test code = RDW) 21.8 11.5-14.5 [place] 796562-06-29 09:09:00 Test Item Value Reference Range Interpretation Comments Platelet (test code = Platelet) 176 133-450 [place] 796562-06-29 09:09:00 Test Item Value Reference Range Interpretation Comments MPV (test code = MPV) 8.2 7.4-10.4 [place] 796562-06-29 09:09:00 Test Item Value Reference Range Interpretation Comments Segs (test code = Segs) 83.6 45.0-75.0 [place] 796562-06-29 09:09:00 Test Item Value Reference Range Interpretation Comments Lymphocytes (test code = Lymphocytes) 10.7 20.0-40.0 [place] [address]-06-29 09:09:00 Test Item Value Reference Range Interpretation Comments Monocytes (test code = Monocytes) 4.9 2.0-12.0 [place] [address]-06-29 09:09:00 Test Item Value Reference Range Interpretation Comments Eosinophils (test code = 0.4 See_Comment [A utomated message] The Eosinophils) system which ge nerated this result tra nsmitted reference range : <=4.0. The reference r samantha was not used to int erpret this result as normal/abnormal . [facility]villePnjnveeXCLOWLNPHA1735-44-23 09:09:00 Test Item Value Reference Range Interpretation Comments Basophils (test code = 0.4 See_Comment [Aut omated message] The Basophils) system which ge nerated this result tra nsmitted reference range : <=1.0. The reference r samantha was not used to int erpret this result as normal/abnormal . [facility] GreenvilleQkfnlblAGXBQFLCVV3737-68-70 09:09:00 Test Item Value Reference Range Interpretation Comments Neutrophils # (test code = Neutrophils 4.0 1.5-8.1 #) [facility] GreenvillePdsiyiwVOCOBIADWW8306-28-29 09:09:00 Test Item Value Reference Range Interpretation Comments Lymphocytes # (test code = Lymphocytes 0.5 1.0-5.5 #) [facility] GreenvillePzgzyubMIDHMUIZWP6776-46-02 09:09:00 Test Item Value Reference Range Interpretation Comments Monocytes # (test code 0.2 See_Comment [Aut omated message] The = Monocytes #) system which generated this result tra nsmitted reference range : <=0.8. The reference r samantha was not used to int erpret this result as normal/abnormal . [facility] GreenvillePorkuriDUUCXTMTDW4004-35-00 09:09:00 Test Item Value Reference Range Interpretation Comments Macrocyte (test code = 1+ *ABN*(11/26/21 Macrocyte) 4:09 AM) [facility] ClubHkdjmhtAMJOUAIVWU2948-90-58 09:09:00 Test Item Value Reference Range Interpretation Comments Interleukin 6 (test code = Interleukin 14.71 6) [facility] CenterPtjgnigGSQVELDUQZ7717-01-82 09:09:00 Test Item Value Reference Range Interpretation Comments C-REACTIVE PROTEIN (test code = 95.9 C-REACTIVE PROTEIN) [facility]2022-06-29 09:09:00 Test Item Value Reference Range Interpretation Comments Ferritin Lvl (test code = Ferritin Lvl) 1543 22-426 [facility]2022-06-29 09:09:00 Test Item Value Reference Range Interpretation Comments Glucose Lvl (test code = Glucose Lvl) 288 70-99 [facility]2022-06-29 09:09:00 Test Item Value Reference Range Interpretation Comments BUN (test code = BUN) 40 7-22 [place] 509392-06-29 09:09:00 Test Item Value Reference Range Interpretation Comments Creatinine Lvl (test code = Creatinine 6.23 0.50-1.40 Lvl) [place] 509392-06-29 09:09:00 Test Item Value Reference Range Interpretation Comments Sodium Lvl (test code = Sodium Lvl) 134 135-145 [place] 509392-06-29 09:09:00 Test Item Value Reference Range Interpretation Comments Potassium Lvl (test code = Potassium 4.5 3.5-5.1 Lvl) [place] 509392-06-29 09:09:00 Test Item Value Reference Range Interpretation Comments Chloride Lvl (test code = Chloride Lvl) 96 95-109 [place] 509392-06-29 09:09:00 Test Item Value Reference Range Interpretation Comments CO2 (test code = CO2) 29 24-32 [place] 509392-06-29 09:09:00 Test Item Value Reference Range Interpretation Comments AGAP (test code = AGAP) 13.5 10.0-20.0 [place] 509392-06-29 09:09:00 Test Item Value Reference Range Interpretation Comments Calcium Lvl (test code = Calcium Lvl) 9.1 8.5-10.5 [place] 509392-06-29 09:09:00 Test Item Value Reference Range Interpretation Comments B/C Ratio (test code = B/C Ratio) 6 1 6-25 [place] 509392-06-29 09:09:00 Test Item Value Reference Range Interpretation Comments Total Protein (test code = Total 6.3 6.4-8.4 Protein) [place] 509392-06-29 09:09:00 Test Item Value Reference Range Interpretation Comments Albumin Lvl (test code = Albumin Lvl) 2.5 3.5-5.0 [place] 509392-06-29 09:09:00 Test Item Value Reference Range Interpretation Comments Globulin (test code = Globulin) 3.8 2.7-4.2 [place] 509392-06-29 09:09:00 Test Item Value Reference Range Interpretation Comments A/G Ratio (test code = A/G Ratio) 0.7 1 0.7-1.6 [facility] [id number] 09:09:00 Test Item Value Reference Range Interpretation Comments ALT (test code = ALT) 38 See_Comment [Auto mated message] The system which ge nerated this result transmit swathi reference range : <=65. The reference range was not used to interpr et this result as deny l/abnormal. [facility] JOJKR7393-29-73 09:09:00 Test Item Value Reference Range Interpretation Comments AST (test code = AST) 31 See_Comment [Auto mated message] The system which ge nerated this result transmit swathi reference range : <=37. The reference range was not used to interpr et this result as deny l/abnormal. [facility] [employer] [id number] 09:09:00 Test Item Value Reference Range Interpretation Comments Alk Phos (test code = Alk Phos) 357 39-136 [facility] FELSX4723-22-21 09:09:00 Test Item Value Reference Range Interpretation Comments Bili Total (test code = Bili Total) 1.0 0.2-1.3 [facility] [id number] 09:09:00 Test Item Value Reference Range Interpretation Comments eGFR (test code = eGFR) 8 [facility] RUQAS1630-87-76 09:09:00 Test Item Value Reference Range Interpretation Comments Magnesium Lvl (test code = Magnesium 2.0 1.8-2.4 Lvl) [facility] [id number] 09:09:00 Test Item Value Reference Range Interpretation Comments LDH (test code = LDH) 251 98-192 [facility] [id number] 09:09:00 Test Item Value Reference Range Interpretation Comments Procalcitonin Lvl (test 0.51 See_Comment [Au tomated message] code = Procalcitonin Lvl) Th e system which generated this result transmitted ref erence range: <=0.10. The reference range was not used to interpr et this result as normal/abnormal . [facility] CenterXcmzcfrTLDSLSRTRQ5604-80-91 09:09:00 Test Item Value Reference Range Interpretation Comments D-Dimer (test code = D-Dimer) 5.06 [facility] CenterOplbgmtUAJSNRKUFT4354-96-26 09:09:00 Test Item Value Reference Range Interpretation Comments WBC (test code = WBC) 4.8 3.7-10.4 [facility] GreenvilleDkxbvzfGCZJSDXSZQ0605-31-86 09:09:00 Test Item Value Reference Range Interpretation Comments RBC (test code = RBC) 2.14 4.70-6.10 [facility] GreenvilleYihipjtCENZNMZXTJ2789-43-22 09:09:00 Test Item Value Reference Range Interpretation Comments Hgb (test code = Hgb) 7.7 14.0-18.0 [facility] GreenvilleFbvdrcfQSRAGEGARI6099-30-01 09:09:00 Test Item Value Reference Range Interpretation Comments Hct (test code = Hct) 22.8 42.0-54.0 [facility] GreenvilleGipbvouTIQDVHZUJK8364-95-64 09:09:00 Test Item Value Reference Range Interpretation Comments MCV (test code = MCV) 106.5 80.0-94.0 [facility] GreenvilleGmlhffpYERKGRGXDS5947-83-37 09:09:00 Test Item Value Reference Range Interpretation Comments MCH (test code = MCH) 36.1 pg 27.0-31.0 [facility] GreenvilleZvpbnapNFBBNOKXUU5747-34-43 09:09:00 Test Item Value Reference Range Interpretation Comments MCHC (test code = MCHC) 33.9 32.0-36.0 [facility] GreenvilleFfvfidnIRNXAHLGUD8641-84-32 09:09:00 Test Item Value Reference Range Interpretation Comments RDW (test code = RDW) 21.8 11.5-14.5 [facility] GreenvilleGdpniwaENVDOCTZYY0488-72-48 09:09:00 Test Item Value Reference Range Interpretation Comments Platelet (test code = Platelet) 176 133-450 [facility] GreenvilleJwcdvcpWEUJJPZUHJ1258-11-83 09:09:00 Test Item Value Reference Range Interpretation Comments MPV (test code = MPV) 8.2 7.4-10.4 [facility] GreenvilleCdeeuegRPYYVBWDLA3190-34-98 09:09:00 Test Item Value Reference Range Interpretation Comments Segs (test code = Segs) 83.6 45.0-75.0 [facility] GreenvillePprsaygGJKVKJKUVB1536-63-00 09:09:00 Test Item Value Reference Range Interpretation Comments Lymphocytes (test code = Lymphocytes) 10.7 20.0-40.0 [facility] GreenvilleFewsdyeBPYGAPTMKQ9179-28-86 09:09:00 Test Item Value Reference Range Interpretation Comments Monocytes (test code = Monocytes) 4.9 2.0-12.0 [place] 796562-06-29 09:09:00 Test Item Value Reference Range Interpretation Comments Eosinophils (test code = 0.4 See_Comment [A utomated message] The Eosinophils) system which ge nerated this result tra nsmitted reference range : <=4.0. The reference r samantha was not used to int erpret this result as normal/abnormal . [facility] GreenvilleUbadshcWGUUSZDKLS5474-45-92 09:09:00 Test Item Value Reference Range Interpretation Comments Basophils (test code = 0.4 See_Comment [Aut omated message] The Basophils) system which ge nerated this result tra nsmitted reference range : <=1.0. The reference r samantha was not used to int erpret this result as normal/abnormal . [facility] GreenvilleLklizfiKQDMFCJCNE5835-98-90 09:09:00 Test Item Value Reference Range Interpretation Comments Neutrophils # (test code = Neutrophils 4.0 1.5-8.1 #) [facility] GreenvilleKzujwsvRRGKYDLEBJ2804-42-68 09:09:00 Test Item Value Reference Range Interpretation Comments Lymphocytes # (test code = Lymphocytes 0.5 1.0-5.5 #) [facility] GreenvilleZkwvvixNAQOVXDLUO9454-33-52 09:09:00 Test Item Value Reference Range Interpretation Comments Monocytes # (test code 0.2 See_Comment [Aut omated message] The = Monocytes #) system which generated this result tra nsmitted reference range : <=0.8. The reference r samantha was not used to int erpret this result as normal/abnormal . [facility] GreenvilleVrfpxuxEHIFPLTCDL2092-87-70 09:09:00 Test Item Value Reference Range Interpretation Comments Macrocyte (test code = 1+ *ABN*(11/26/21 Macrocyte) 4:09 AM) [facility] CenterImmoijvDKBJJCAVGV3401-85-09 09:09:00 Test Item Value Reference Range Interpretation Comments Interleukin 6 (test code = Interleukin 14.71 6) [facility] CenterQtkfncuIIJNARYKDO8636-80-82 09:09:00 Test Item Value Reference Range Interpretation Comments C-REACTIVE PROTEIN (test code = 95.9 C-REACTIVE PROTEIN) [facility]2022-06-29 09:09:00 Test Item Value Reference Range Interpretation Comments Ferritin Lvl (test code = Ferritin Lvl) 7432 22-549 [facility] UPCAV2159-89-93 09:09:00 Test Item Value Reference Range Interpretation Comments Glucose Lvl (test code = Glucose Lvl) 288 70-99 [place] 509392-06-29 09:09:00 Test Item Value Reference Range Interpretation Comments BUN (test code = BUN) 40 7-22 [place] 509392-06-29 09:09:00 Test Item Value Reference Range Interpretation Comments Creatinine Lvl (test code = Creatinine 6.23 0.50-1.40 Lvl) [place] 509392-06-29 09:09:00 Test Item Value Reference Range Interpretation Comments Sodium Lvl (test code = Sodium Lvl) 134 135-145 [place] 509392-06-29 09:09:00 Test Item Value Reference Range Interpretation Comments Potassium Lvl (test code = Potassium 4.5 3.5-5.1 Lvl) [place] 509392-06-29 09:09:00 Test Item Value Reference Range Interpretation Comments Chloride Lvl (test code = Chloride Lvl) 96 95-109 [place] 509392-06-29 09:09:00 Test Item Value Reference Range Interpretation Comments CO2 (test code = CO2) 29 24-32 [place] 509392-06-29 09:09:00 Test Item Value Reference Range Interpretation Comments AGAP (test code = AGAP) 13.5 10.0-20.0 [place] 509392-06-29 09:09:00 Test Item Value Reference Range Interpretation Comments Calcium Lvl (test code = Calcium Lvl) 9.1 8.5-10.5 [place] 509392-06-29 09:09:00 Test Item Value Reference Range Interpretation Comments B/C Ratio (test code = B/C Ratio) 6 1 6-25 [place] 509392-06-29 09:09:00 Test Item Value Reference Range Interpretation Comments Total Protein (test code = Total 6.3 6.4-8.4 Protein) [place] 509392-06-29 09:09:00 Test Item Value Reference Range Interpretation Comments Albumin Lvl (test code = Albumin Lvl) 2.5 3.5-5.0 [place] 509392-06-29 09:09:00 Test Item Value Reference Range Interpretation Comments Globulin (test code = Globulin) 3.8 2.7-4.2 [place] 509392-06-29 09:09:00 Test Item Value Reference Range Interpretation Comments A/G Ratio (test code = A/G Ratio) 0.7 1 0.7-1.6 [place] 509392-06-29 09:09:00 Test Item Value Reference Range Interpretation Comments ALT (test code = ALT) 38 See_Comment [Auto mated message] The system which ge nerated this result transmit swathi reference range : <=65. The reference range was not used to interpr et this result as deny l/abnormal. [place] 509392-06-29 09:09:00 Test Item Value Reference Range Interpretation Comments AST (test code = AST) 31 See_Comment [Auto mated message] The system which ge nerated this result transmit swathi reference range : <=37. The reference range was not used to interpr et this result as deny l/abnormal. [place] 509392-06-29 09:09:00 Test Item Value Reference Range Interpretation Comments Alk Phos (test code = Alk Phos) 357 39-136 [place] 509392-06-29 09:09:00 Test Item Value Reference Range Interpretation Comments Bili Total (test code = Bili Total) 1.0 0.2-1.3 [place] 509392-06-29 09:09:00 Test Item Value Reference Range Interpretation Comments eGFR (test code = eGFR) 8 [place] 509392-06-29 09:09:00 Test Item Value Reference Range Interpretation Comments Magnesium Lvl (test code = Magnesium 2.0 1.8-2.4 Lvl) [place] 509392-06-29 09:09:00 Test Item Value Reference Range Interpretation Comments LDH (test code = LDH) 251 98-192 [place] 509392-06-29 09:09:00 Test Item Value Reference Range Interpretation Comments Procalcitonin Lvl (test 0.51 See_Comment [Au tomated message] code = Procalcitonin Lvl) Th e system which generated this result transmitted ref erence range: <=0.10. The reference range was not used to interpr et this result as normal/abnormal . [place] 796562-06-29 09:09:00 Test Item Value Reference Range Interpretation Comments D-Dimer (test code = D-Dimer) 5.06 [facility] GreenvilleHqeslinLTBYZVXKGN4128-34-83 09:09:00 Test Item Value Reference Range Interpretation Comments WBC (test code = WBC) 4.8 3.7-10.4 [facility] GreenvilleSogevzyOYCKSVFKGL8958-68-64 09:09:00 Test Item Value Reference Range Interpretation Comments RBC (test code = RBC) 2.14 4.70-6.10 [facility] GreenvilleMxanpnmYMBJPLNAFR2440-82-43 09:09:00 Test Item Value Reference Range Interpretation Comments Hgb (test code = Hgb) 7.7 14.0-18.0 [place] 796562-06-29 09:09:00 Test Item Value Reference Range Interpretation Comments Hct (test code = Hct) 22.8 42.0-54.0 [facility] GreenvilleVwajlaeFRSFORVJVZ5944-33-34 09:09:00 Test Item Value Reference Range Interpretation Comments MCV (test code = MCV) 106.5 80.0-94.0 [facility] GreenvilleIgqkgasHZNJHOEHCC5647-57-45 09:09:00 Test Item Value Reference Range Interpretation Comments MCH (test code = MCH) 36.1 pg 27.0-31.0 [facility] GreenvilleJxqifzhWRXEKDPYYN6221-63-47 09:09:00 Test Item Value Reference Range Interpretation Comments MCHC (test code = MCHC) 33.9 32.0-36.0 [facility] GreenvilleLzywmgaLEXLAEWUGT7733-97-13 09:09:00 Test Item Value Reference Range Interpretation Comments RDW (test code = RDW) 21.8 11.5-14.5 [facility] GreenvilleMuosccyYAXNIVFCLI8996-36-88 09:09:00 Test Item Value Reference Range Interpretation Comments Platelet (test code = Platelet) 176 133-450 [facility] GreenvilleEvrkmglLIBFCZUBZS3699-65-13 09:09:00 Test Item Value Reference Range Interpretation Comments MPV (test code = MPV) 8.2 7.4-10.4 [facility] GreenvilleXcibodlACBYIZTFGO5956-17-77 09:09:00 Test Item Value Reference Range Interpretation Comments Segs (test code = Segs) 83.6 45.0-75.0 [place] 796562-06-29 09:09:00 Test Item Value Reference Range Interpretation Comments Lymphocytes (test code = Lymphocytes) 10.7 20.0-40.0 [facility] GreenvillePanltnpNVXABPMBJH2584-92-45 09:09:00 Test Item Value Reference Range Interpretation Comments Monocytes (test code = Monocytes) 4.9 2.0-12.0 [facility] GreenvilleBvwkhyfNIDYUJBOYM2666-21-92 09:09:00 Test Item Value Reference Range Interpretation Comments Eosinophils (test code = 0.4 See_Comment [A utomated message] The Eosinophils) system which ge nerated this result tra nsmitted reference range : <=4.0. The reference r samantha was not used to int erpret this result as normal/abnormal . [facility] GreenvilleGrxnoajGOTAXJFBPA0384-26-22 09:09:00 Test Item Value Reference Range Interpretation Comments Basophils (test code = 0.4 See_Comment [Aut omated message] The Basophils) system which ge nerated this result tra nsmitted reference range : <=1.0. The reference r samantha was not used to int erpret this result as normal/abnormal . [facility] GreenvilleWnfzhrkSNVERLXFZC1979-71-28 09:09:00 Test Item Value Reference Range Interpretation Comments Neutrophils # (test code = Neutrophils 4.0 1.5-8.1 #) [facility] GreenvilleImqbnpoJAEWYMMFEN8124-20-49 09:09:00 Test Item Value Reference Range Interpretation Comments Lymphocytes # (test code = Lymphocytes 0.5 1.0-5.5 #) [facility] GreenvilleAvfviqiMKOMSFSFRL1320-75-14 09:09:00 Test Item Value Reference Range Interpretation Comments Monocytes # (test code 0.2 See_Comment [Aut omated message] The = Monocytes #) system which generated this result tra nsmitted reference range : <=0.8. The reference r samantha was not used to int erpret this result as normal/abnormal . [facility] [place]LA[place]8499[place]-65 09:09:00 Test Item Value Reference Range Interpretation Comments Macrocyte (test code = 1+ *ABN*(11/26/21 Macrocyte) 4:09 AM) [facility] CenterQuadsfrSVPWQCTINC6028-54-25 09:09:00 Test Item Value Reference Range Interpretation Comments Interleukin 6 (test code = Interleukin 14.71 6) [facility] ClubYopxebdWZZOLQPEVT1331-04-10 09:09:00 Test Item Value Reference Range Interpretation Comments C-REACTIVE PROTEIN (test code = 95.9 C-REACTIVE PROTEIN) [facility]2022-06-29 09:09:00 Test Item Value Reference Range Interpretation Comments Ferritin Lvl (test code = Ferritin Lvl) 1543 22275 [place] 509392-06-29 09:09:00 Test Item Value Reference Range Interpretation Comments Glucose Lvl (test code = Glucose Lvl) 288 70-99 [place] 509392-06-29 09:09:00 Test Item Value Reference Range Interpretation Comments BUN (test code = BUN) 40 7-22 [place] 509392-06-29 09:09:00 Test Item Value Reference Range Interpretation Comments Creatinine Lvl (test code = Creatinine 6.23 0.50-1.40 Lvl) [place] 509392-06-29 09:09:00 Test Item Value Reference Range Interpretation Comments Sodium Lvl (test code = Sodium Lvl) 134 135-145 [place] 509392-06-29 09:09:00 Test Item Value Reference Range Interpretation Comments Potassium Lvl (test code = Potassium 4.5 3.5-5.1 Lvl) [place] 509392-06-29 09:09:00 Test Item Value Reference Range Interpretation Comments Chloride Lvl (test code = Chloride Lvl) 96 95-109 [place] 509392-06-29 09:09:00 Test Item Value Reference Range Interpretation Comments CO2 (test code = CO2) 29 24-32 [place] 509392-06-29 09:09:00 Test Item Value Reference Range Interpretation Comments AGAP (test code = AGAP) 13.5 10.0-20.0 [place] 509392-06-29 09:09:00 Test Item Value Reference Range Interpretation Comments Calcium Lvl (test code = Calcium Lvl) 9.1 8.5-10.5 [place] 509392-06-29 09:09:00 Test Item Value Reference Range Interpretation Comments B/C Ratio (test code = B/C Ratio) 6 1 6-25 [place] 509392-06-29 09:09:00 Test Item Value Reference Range Interpretation Comments Total Protein (test code = Total 6.3 6.4-8.4 Protein) [place] 509392-06-29 09:09:00 Test Item Value Reference Range Interpretation Comments Albumin Lvl (test code = Albumin Lvl) 2.5 3.5-5.0 [facility]ZXZFX0925-44-[facility] 09:09:00 Test Item Value Reference Range Interpretation Comments Globulin (test code = Globulin) 3.8 2.7-4.2 [place] 509392-06-29 09:09:00 Test Item Value Reference Range Interpretation Comments A/G Ratio (test code = A/G Ratio) 0.7 1 0.7-1.6 [place] [address]-06-29 09:09:00 Test Item Value Reference Range Interpretation Comments ALT (test code = ALT) 38 See_Comment [Auto mated message] The system which ge nerated this result transmit swathi reference range : <=65. The reference range was not used to interpr et this result as deny l/abnormal. [place] 509392-06-29 09:09:00 Test Item Value Reference Range Interpretation Comments AST (test code = AST) 31 See_Comment [Auto mated message] The system which ge nerated this result transmit swathi reference range : <=37. The reference range was not used to interpr et this result as deny l/abnormal. [facility] AVNQY8756-74-24 09:09:00 Test Item Value Reference Range Interpretation Comments Alk Phos (test code = Alk Phos) 357 39-136 [facility] [id number] 09:09:00 Test Item Value Reference Range Interpretation Comments Bili Total (test code = Bili Total) 1.0 0.2-1.3 [facility] [id number] 09:09:00 Test Item Value Reference Range Interpretation Comments eGFR (test code = eGFR) 8 [facility] LSXZD3514-79-76 09:09:00 Test Item Value Reference Range Interpretation Comments Magnesium Lvl (test code = Magnesium 2.0 1.8-2.4 Lvl) [facility] [id number] 09:09:00 Test Item Value Reference Range Interpretation Comments LDH (test code = LDH) 251 98-192 [facility] [id number] 09:09:00 Test Item Value Reference Range Interpretation Comments Procalcitonin Lvl (test 0.51 See_Comment [Au tomated message] code = Procalcitonin Lvl) Th e system which generated this result transmitted ref erence range: <=0.10. The reference range was not used to interpr et this result as normal/abnormal . [facility] GreenvilleDllnqscYUAXKMMDID7535-90-95 09:09:00 Test Item Value Reference Range Interpretation Comments D-Dimer (test code = D-Dimer) 5.06 [facility] GreenvilleWykdalgJMJYVOKOAI1683-14-11 09:09:00 Test Item Value Reference Range Interpretation Comments WBC (test code = WBC) 4.8 3.7-10.4 [facility] GreenvilleHxmiitlDUKAYFGESL1923-48-64 09:09:00 Test Item Value Reference Range Interpretation Comments RBC (test code = RBC) 2.14 4.70-6.10 [facility] GreenvillePfoiqoyWKQMJNUWBA9266-29-66 09:09:00 Test Item Value Reference Range Interpretation Comments Hgb (test code = Hgb) 7.7 14.0-18.0 [facility] GreenvilleGruzszfSIODDQXZEW2272-42-87 09:09:00 Test Item Value Reference Range Interpretation Comments Hct (test code = Hct) 22.8 42.0-54.0 [facility] GreenvilleRkqcdbsUZRDRNFYKT2576-92-89 09:09:00 Test Item Value Reference Range Interpretation Comments MCV (test code = MCV) 106.5 80.0-94.0 [facility] GreenvilleWmoutmrIHVNNDQTEY3083-50-05 09:09:00 Test Item Value Reference Range Interpretation Comments MCH (test code = MCH) 36.1 pg 27.0-31.0 [facility] GreenvilleClmiqszIOYWWSPPRF1085-24-32 09:09:00 Test Item Value Reference Range Interpretation Comments MCHC (test code = MCHC) 33.9 32.0-36.0 [facility] GreenvilleGztasskFMRWOKHVVH4564-86-74 09:09:00 Test Item Value Reference Range Interpretation Comments RDW (test code = RDW) 21.8 11.5-14.5 [facility] GreenvilleQmvqenvMTOSRMMBGU6059-57-26 09:09:00 Test Item Value Reference Range Interpretation Comments Platelet (test code = Platelet) 176 133-450 [facility] GreenvilleUrxaheuMSWCCZPZTE4745-19-53 09:09:00 Test Item Value Reference Range Interpretation Comments MPV (test code = MPV) 8.2 7.4-10.4 [facility] GreenvilleHeoorrdEECRFGREOY1594-61-14 09:09:00 Test Item Value Reference Range Interpretation Comments Segs (test code = Segs) 83.6 45.0-75.0 [facility] GreenvilleAzdowwcGSNMELEFQO7217-07-61 09:09:00 Test Item Value Reference Range Interpretation Comments Lymphocytes (test code = Lymphocytes) 10.7 20.0-40.0 [facility] GreenvilleYiiwwntWKNBHADUNX4452-45-85 09:09:00 Test Item Value Reference Range Interpretation Comments Monocytes (test code = Monocytes) 4.9 2.0-12.0 [place] 796562-06-29 09:09:00 Test Item Value Reference Range Interpretation Comments Eosinophils (test code = 0.4 See_Comment [A utomated message] The Eosinophils) system which ge nerated this result tra nsmitted reference range : <=4.0. The reference r samantha was not used to int erpret this result as normal/abnormal . [facility] GreenvilleSkfhotiUKQASGQXVZ8960-91-57 09:09:00 Test Item Value Reference Range Interpretation Comments Basophils (test code = 0.4 See_Comment [Aut omated message] The Basophils) system which ge nerated this result tra nsmitted reference range : <=1.0. The reference r samantha was not used to int erpret this result as normal/abnormal . [facility] GreenvilleSpclybfCRFEILHFCL4701-94-74 09:09:00 Test Item Value Reference Range Interpretation Comments Neutrophils # (test code = Neutrophils 4.0 1.5-8.1 #) [facility] GreenvilleJuksjapWVBQHYZUAE5488-36-18 09:09:00 Test Item Value Reference Range Interpretation Comments Lymphocytes # (test code = Lymphocytes 0.5 1.0-5.5 #) [place] 796562-06-29 09:09:00 Test Item Value Reference Range Interpretation Comments Monocytes # (test code 0.2 See_Comment [Aut omated message] The = Monocytes #) system which generated this result tra nsmitted reference range : <=0.8. The reference r samantha was not used to int erpret this result as normal/abnormal . [facility] GreenvilleIolnhdlHOJZQJTZHR8882-37-09 09:09:00 Test Item Value Reference Range Interpretation Comments Macrocyte (test code = 1+ *ABN*(11/26/21 Macrocyte) 4:09 AM) [facility] CenterVicksfxGPMKNYFQQE2431-90-25 09:09:00 Test Item Value Reference Range Interpretation Comments Interleukin 6 (test code = Interleukin 14.71 6) [facility] CenterCchhhynAYNSTQEBUL8703-24-64 09:09:00 Test Item Value Reference Range Interpretation Comments C-REACTIVE PROTEIN (test code = 95.9 C-REACTIVE PROTEIN) [facility]2022-06-29 09:09:00 Test Item Value Reference Range Interpretation Comments Ferritin Lvl (test code = Ferritin Lvl) 1543 22-275 [facility]2022-06-29 09:09:00 Test Item Value Reference Range Interpretation Comments Glucose Lvl (test code = Glucose Lvl) 288 70-99 [place] 509392-06-29 09:09:00 Test Item Value Reference Range Interpretation Comments BUN (test code = BUN) 40 7-22 [place] 509392-06-29 09:09:00 Test Item Value Reference Range Interpretation Comments Creatinine Lvl (test code = Creatinine 6.23 0.50-1.40 Lvl) [facility]2022-06-29 09:09:00 Test Item Value Reference Range Interpretation Comments Sodium Lvl (test code = Sodium Lvl) 134 135-145 [place] 509392-06-29 09:09:00 Test Item Value Reference Range Interpretation Comments Potassium Lvl (test code = Potassium 4.5 3.5-5.1 Lvl) [place] 509392-06-29 09:09:00 Test Item Value Reference Range Interpretation Comments Chloride Lvl (test code = Chloride Lvl) 96 95-109 [place] 509392-06-29 09:09:00 Test Item Value Reference Range Interpretation Comments CO2 (test code = CO2) 29 24-32 [place] 509392-06-29 09:09:00 Test Item Value Reference Range Interpretation Comments AGAP (test code = AGAP) 13.5 10.0-20.0 [place] 509392-06-29 09:09:00 Test Item Value Reference Range Interpretation Comments Calcium Lvl (test code = Calcium Lvl) 9.1 8.5-10.5 [place] 509392-06-29 09:09:00 Test Item Value Reference Range Interpretation Comments B/C Ratio (test code = B/C Ratio) 6 1 6-25 [place] 509392-06-29 09:09:00 Test Item Value Reference Range Interpretation Comments Total Protein (test code = Total 6.3 6.4-8.4 Protein) [facility] CenterPlay[facility] [id number] 09:09:00 Test Item Value Reference Range Interpretation Comments Albumin Lvl (test code = Albumin Lvl) 2.5 3.5-5.0 [facility] [id number] 09:09:00 Test Item Value Reference Range Interpretation Comments Globulin (test code = Globulin) 3.8 2.7-4.2 [facility] HATYU4465-69-90 09:09:00 Test Item Value Reference Range Interpretation Comments A/G Ratio (test code = A/G Ratio) 0.7 1 0.7-1.6 [facility] IKPYC8341-06-77 09:09:00 Test Item Value Reference Range Interpretation Comments ALT (test code = ALT) 38 See_Comment [Auto mated message] The system which ge nerated this result transmit swathi reference range : <=65. The reference range was not used to interpr et this result as deny l/abnormal. [facility] RXYEE9906-70-85 09:09:00 Test Item Value Reference Range Interpretation Comments AST (test code = AST) 31 See_Comment [Auto mated message] The system which ge nerated this result transmit swathi reference range : <=37. The reference range was not used to interpr et this result as deny l/abnormal. [facility] VEPYZ9175-53-08 09:09:00 Test Item Value Reference Range Interpretation Comments Alk Phos (test code = Alk Phos) 357 39-136 [facility] CJQFV2165-70-50 09:09:00 Test Item Value Reference Range Interpretation Comments Bili Total (test code = Bili Total) 1.0 0.2-1.3 [facility] KRXFF8240-59-86 09:09:00 Test Item Value Reference Range Interpretation Comments eGFR (test code = eGFR) 8 [facility] MZXTQ1078-97-35 09:09:00 Test Item Value Reference Range Interpretation Comments Magnesium Lvl (test code = Magnesium 2.0 1.8-2.4 Lvl) [facility] [id number] 09:09:00 Test Item Value Reference Range Interpretation Comments LDH (test code = LDH) 251 98-192 [facility]2022-06-29 09:09:00 Test Item Value Reference Range Interpretation Comments Procalcitonin Lvl (test 0.51 See_Comment [Au tomated message] code = Procalcitonin Lvl) Th e system which generated this result transmitted ref erence range: <=0.10. The reference range was not used to interpr et this result as normal/abnormal . [facility] GreenvilleRoyzrlpPYHERVSNKO8294-38-34 09:09:00 Test Item Value Reference Range Interpretation Comments D-Dimer (test code = D-Dimer) 5.06 [facility] GreenvilleKiyftpdUQPCDLZBOC4609-13-92 09:09:00 Test Item Value Reference Range Interpretation Comments WBC (test code = WBC) 4.8 3.7-10.4 [facility] GreenvilleRovnbusZQPUNLFHKC5699-82-88 09:09:00 Test Item Value Reference Range Interpretation Comments RBC (test code = RBC) 2.14 4.70-6.10 [facility] GreenvilleJkjwheiQEWDAOWHUY6408-31-90 09:09:00 Test Item Value Reference Range Interpretation Comments Hgb (test code = Hgb) 7.7 14.0-18.0 [place] 796562-06-29 09:09:00 Test Item Value Reference Range Interpretation Comments Hct (test code = Hct) 22.8 42.0-54.0 [facility] GreenvilleUqkfajkHNXDXUHDFR1543-98-16 09:09:00 Test Item Value Reference Range Interpretation Comments MCV (test code = MCV) 106.5 80.0-94.0 [facility] GreenvilleEhznloxLAKZUVPJAW2135-48-39 09:09:00 Test Item Value Reference Range Interpretation Comments MCH (test code = MCH) 36.1 pg 27.0-31.0 [facility] GreenvilleScihbyaOOPCINVLVG5631-00-89 09:09:00 Test Item Value Reference Range Interpretation Comments MCHC (test code = MCHC) 33.9 32.0-36.0 [facility] GreenvilleHshkxclQLGBYLIIVP0834-91-49 09:09:00 Test Item Value Reference Range Interpretation Comments RDW (test code = RDW) 21.8 11.5-14.5 [facility] GreenvilleRgvqzsdGXDEPVJOEN2311-62-84 09:09:00 Test Item Value Reference Range Interpretation Comments Platelet (test code = Platelet) 176 133-450 [facility] GreenvillePvlrrutIGMCPWDPDO1808-99-58 09:09:00 Test Item Value Reference Range Interpretation Comments MPV (test code = MPV) 8.2 7.4-10.4 [facility] GreenvilleMprxkusXQOJNKRHVF9930-48-45 09:09:00 Test Item Value Reference Range Interpretation Comments Segs (test code = Segs) 83.6 45.0-75.0 [facility] GreenvilleXzsqokgLCISTQUTPU2914-29-27 09:09:00 Test Item Value Reference Range Interpretation Comments Lymphocytes (test code = Lymphocytes) 10.7 20.0-40.0 [facility] GreenvilleFmzfqiqBKXGZCYIPP9105-31-74 09:09:00 Test Item Value Reference Range Interpretation Comments Monocytes (test code = Monocytes) 4.9 2.0-12.0 [facility] GreenvilleZgbfkbzMNSTRZHDOM4941-23-16 09:09:00 Test Item Value Reference Range Interpretation Comments Eosinophils (test code = 0.4 See_Comment [A utomated message] The Eosinophils) system which ge nerated this result tra nsmitted reference range : <=4.0. The reference r samantha was not used to int erpret this result as normal/abnormal . [facility] GreenvilleDcmxlcfLQVZMPONHV2813-37-14 09:09:00 Test Item Value Reference Range Interpretation Comments Basophils (test code = 0.4 See_Comment [Aut omated message] The Basophils) system which ge nerated this result tra nsmitted reference range : <=1.0. The reference r samantha was not used to int erpret this result as normal/abnormal . [facility] GreenvilleTlfvapkAWFSCEOFXW0589-95-88 09:09:00 Test Item Value Reference Range Interpretation Comments Neutrophils # (test code = Neutrophils 4.0 1.5-8.1 #) [facility] GreenvilleSydfbqaTGGSUWEPUA8795-54-90 09:09:00 Test Item Value Reference Range Interpretation Comments Lymphocytes # (test code = Lymphocytes 0.5 1.0-5.5 #) [facility] GreenvilleKunmndnDCQLWJUWXU9591-90-71 09:09:00 Test Item Value Reference Range Interpretation Comments Monocytes # (test code 0.2 See_Comment [Aut omated message] The = Monocytes #) system which generated this result tra nsmitted reference range : <=0.8. The reference r samantha was not used to int erpret this result as normal/abnormal . [facility] GreenvilleMxytfvkJLSICXYNCJ9489-83-37 09:09:00 Test Item Value Reference Range Interpretation Comments Macrocyte (test code = 1+ *ABN*(11/26/21 Macrocyte) 4:09 AM) [facility] CenterWwjiinrJTOXLSBVIO5639-33-19 09:09:00 Test Item Value Reference Range Interpretation Comments Interleukin 6 (test code = Interleukin 14.71 6) [place] 735922-06-29 09:09:00 Test Item Value Reference Range Interpretation Comments C-REACTIVE PROTEIN (test code = 95.9 C-REACTIVE PROTEIN) [facility]2022-06-29 09:09:00 Test Item Value Reference Range Interpretation Comments Ferritin Lvl (test code = Ferritin Lvl) 1543 22-275 [place] 509392-06-29 09:09:00 Test Item Value Reference Range Interpretation Comments Glucose Lvl (test code = Glucose Lvl) 288 70-99 [place] 509392-06-29 09:09:00 Test Item Value Reference Range Interpretation Comments BUN (test code = BUN) 40 7-22 [place] 509392-06-29 09:09:00 Test Item Value Reference Range Interpretation Comments Creatinine Lvl (test code = Creatinine 6.23 0.50-1.40 Lvl) [facility]2022-06-29 09:09:00 Test Item Value Reference Range Interpretation Comments Sodium Lvl (test code = Sodium Lvl) 134 135-145 [facility]2022-06-29 09:09:00 Test Item Value Reference Range Interpretation Comments Potassium Lvl (test code = Potassium 4.5 3.5-5.1 Lvl) [facility]2022-06-29 09:09:00 Test Item Value Reference Range Interpretation Comments Chloride Lvl (test code = Chloride Lvl) 96 95-109 [place] 509392-06-29 09:09:00 Test Item Value Reference Range Interpretation Comments CO2 (test code = CO2) 29 24-32 [place] 509392-06-29 09:09:00 Test Item Value Reference Range Interpretation Comments AGAP (test code = AGAP) 13.5 10.0-20.0 [place] 509392-06-29 09:09:00 Test Item Value Reference Range Interpretation Comments Calcium Lvl (test code = Calcium Lvl) 9.1 8.5-10.5 [place] 509392-06-29 09:09:00 Test Item Value Reference Range Interpretation Comments B/C Ratio (test code = B/C Ratio) 6 1 6-25 [place] 509392-06-29 09:09:00 Test Item Value Reference Range Interpretation Comments Total Protein (test code = Total 6.3 6.4-8.4 Protein) [place] 509392-06-29 09:09:00 Test Item Value Reference Range Interpretation Comments Albumin Lvl (test code = Albumin Lvl) 2.5 3.5-5.0 [place] 509392-06-29 09:09:00 Test Item Value Reference Range Interpretation Comments Globulin (test code = Globulin) 3.8 2.7-4.2 [place] 509392-06-29 09:09:00 Test Item Value Reference Range Interpretation Comments A/G Ratio (test code = A/G Ratio) 0.7 1 0.7-1.6 [place] 509392-06-29 09:09:00 Test Item Value Reference Range Interpretation Comments ALT (test code = ALT) 38 See_Comment [Auto mated message] The system which ge nerated this result transmit swathi reference range : <=65. The reference range was not used to interpr et this result as deny l/abnormal. [place] 509392-06-29 09:09:00 Test Item Value Reference Range Interpretation Comments AST (test code = AST) 31 See_Comment [Auto mated message] The system which ge nerated this result transmit swathi reference range : <=37. The reference range was not used to interpr et this result as deny l/abnormal. [facility]2022-06-29 09:09:00 Test Item Value Reference Range Interpretation Comments Alk Phos (test code = Alk Phos) 357 39-136 [place] 509392-06-29 09:09:00 Test Item Value Reference Range Interpretation Comments Bili Total (test code = Bili Total) 1.0 0.2-1.3 [place] 509392-06-29 09:09:00 Test Item Value Reference Range Interpretation Comments eGFR (test code = eGFR) 8 [place] 509392-06-29 09:09:00 Test Item Value Reference Range Interpretation Comments Magnesium Lvl (test code = Magnesium 2.0 1.8-2.4 Lvl) [facility]2022-06-29 09:09:00 Test Item Value Reference Range Interpretation Comments LDH (test code = LDH) 251 98-192 [facility]2022-06-29 09:09:00 Test Item Value Reference Range Interpretation Comments Procalcitonin Lvl (test 0.51 See_Comment [Au tomated message] code = Procalcitonin Lvl) e system which generated this result transmitted ref erence range: <=0.10. The reference range was not used to interpr et this result as normal/abnormal . [facility] GreenvilleCfvffhpSLVOWIPNIT2127-82-81 09:09:00 Test Item Value Reference Range Interpretation Comments D-Dimer (test code = D-Dimer) 5.06 [place] 796562-06-29 09:09:00 Test Item Value Reference Range Interpretation Comments WBC (test code = WBC) 4.8 3.7-10.4 [place] 796562-06-29 09:09:00 Test Item Value Reference Range Interpretation Comments RBC (test code = RBC) 2.14 4.70-6.10 [facility] GreenvilleCziswiwIJABXVDTUW9974-24-36 09:09:00 Test Item Value Reference Range Interpretation Comments Hgb (test code = Hgb) 7.7 14.0-18.0 [place] 796562-06-29 09:09:00 Test Item Value Reference Range Interpretation Comments Hct (test code = Hct) 22.8 42.0-54.0 [place] 796562-06-29 09:09:00 Test Item Value Reference Range Interpretation Comments MCV (test code = MCV) 106.5 80.0-94.0 [place] 796562-06-29 09:09:00 Test Item Value Reference Range Interpretation Comments MCH (test code = MCH) 36.1 pg 27.0-31.0 [place] 796562-06-29 09:09:00 Test Item Value Reference Range Interpretation Comments MCHC (test code = MCHC) 33.9 32.0-36.0 [place] [address]-06-29 09:09:00 Test Item Value Reference Range Interpretation Comments RDW (test code = RDW) 21.8 11.5-14.5 [place] 796562-06-29 09:09:00 Test Item Value Reference Range Interpretation Comments Platelet (test code = Platelet) 176 133-450 [place] 796562-06-29 09:09:00 Test Item Value Reference Range Interpretation Comments MPV (test code = MPV) 8.2 7.4-10.4 [place] 796562-06-29 09:09:00 Test Item Value Reference Range Interpretation Comments Segs (test code = Segs) 83.6 45.0-75.0 [place] 796562-06-29 09:09:00 Test Item Value Reference Range Interpretation Comments Lymphocytes (test code = Lymphocytes) 10.7 20.0-40.0 [place] [address]-06-29 09:09:00 Test Item Value Reference Range Interpretation Comments Monocytes (test code = Monocytes) 4.9 2.0-12.0 [place] 796562-06-29 09:09:00 Test Item Value Reference Range Interpretation Comments Eosinophils (test code = 0.4 See_Comment [A utomated message] The Eosinophils) system which ge nerated this result tra nsmitted reference range : <=4.0. The reference r samantha was not used to int erpret this result as normal/abnormal . [facility] GreenvilleNuigtdsSPZCFPBERR1894-57-79 09:09:00 Test Item Value Reference Range Interpretation Comments Basophils (test code = 0.4 See_Comment [Aut omated message] The Basophils) system which ge nerated this result tra nsmitted reference range : <=1.0. The reference r samantha was not used to int erpret this result as normal/abnormal . [facility] GreenvilleSjypehhGVUHSFOIHD8911-62-99 09:09:00 Test Item Value Reference Range Interpretation Comments Neutrophils # (test code = Neutrophils 4.0 1.5-8.1 #) [place] 796562-06-29 09:09:00 Test Item Value Reference Range Interpretation Comments Lymphocytes # (test code = Lymphocytes 0.5 1.0-5.5 #) [place]6562-06-29 09:09:00 Test Item Value Reference Range Interpretation Comments Monocytes # (test code 0.2 See_Comment [Aut omated message] The = Monocytes #) system which generated this result tra nsmitted reference range : <=0.8. The reference r samantha was not used to int erpret this result as normal/abnormal . [facility]villeWoghhmgSSBYFORZNL2920-34-45 09:09:00 Test Item Value Reference Range Interpretation Comments Macrocyte (test code = 1+ *ABN*(11/26/21 Macrocyte) 4:09 AM) [place] 735922-06-29 09:09:00 Test Item Value Reference Range Interpretation Comments Interleukin 6 (test code = Interleukin 14.71 6) [place] 735922-06-29 09:09:00 Test Item Value Reference Range Interpretation Comments C-REACTIVE PROTEIN (test code = 95.9 C-REACTIVE PROTEIN) [place] 796562-06-28 12:33:00 Test Item Value Reference Range Interpretation Comments Segs (test code = Segs) 84.8 45.0-75.0 [place] 796562-06-28 12:33:00 Test Item Value Reference Range Interpretation Comments Lymphocytes (test code = Lymphocytes) 11.6 20.0-40.0 [place] 796562-06-28 12:33:00 Test Item Value Reference Range Interpretation Comments Monocytes (test code = Monocytes) 2.8 2.0-12.0 [place] 796562-06-28 12:33:00 Test Item Value Reference Range Interpretation Comments Eosinophils (test code = 0.4 See_Comment [A utomated message] The Eosinophils) system which ge nerated this result tra nsmitted reference range : <=4.0. The reference r samantha was not used to int erpret this result as normal/abnormal . [place] 796562-06-28 12:33:00 Test Item Value Reference Range Interpretation Comments Basophils (test code = 0.4 See_Comment [Aut omated message] The Basophils) system which ge nerated this result tra nsmitted reference range : <=1.0. The reference r samantha was not used to int erpret this result as normal/abnormal . [facility]villeKxbniqyWNUOPTDQIJ9689-78-08 12:33:00 Test Item Value Reference Range Interpretation Comments Neutrophils # (test code = Neutrophils 4.4 1.5-8.1 #) [place] 796562-06-28 12:33:00 Test Item Value Reference Range Interpretation Comments Lymphocytes # (test code = Lymphocytes 0.6 1.0-5.5 #) [facility] GreenvilleIwdjeljHQTFPTNMTD1504-54-79 12:33:00 Test Item Value Reference Range Interpretation Comments Monocytes # (test code 0.1 See_Comment [Aut omated message] The = Monocytes #) system which generated this result tra nsmitted reference range : <=0.8. The reference r samantha was not used to int erpret this result as normal/abnormal . [facility] GreenvilleCebpgzjRNZFSOJFAZ4662-65-18 12:33:00 Test Item Value Reference Range Interpretation Comments Macrocyte (test code = 1+ *ABN*(11/25/21 Macrocyte) 7:33 AM) [place] 796562-06-28 12:33:00 Test Item Value Reference Range Interpretation Comments WBC (test code = WBC) 5.2 3.7-10.4 [place] 796562-06-28 12:33:00 Test Item Value Reference Range Interpretation Comments RBC (test code = RBC) 2.18 4.70-6.10 [place] 796562-06-28 12:33:00 Test Item Value Reference Range Interpretation Comments Hgb (test code = Hgb) 7.8 14.0-18.0 [place] 796562-06-28 12:33:00 Test Item Value Reference Range Interpretation Comments Hct (test code = Hct) 23.6 42.0-54.0 [place] 796562-06-28 12:33:00 Test Item Value Reference Range Interpretation Comments MCV (test code = MCV) 108.4 80.0-94.0 [place] 796562-06-28 12:33:00 Test Item Value Reference Range Interpretation Comments MCH (test code = MCH) 35.9 pg 27.0-31.0 [place] 796562-06-28 12:33:00 Test Item Value Reference Range Interpretation Comments MCHC (test code = MCHC) 33.1 32.0-36.0 [facility] GreenvilleYwxfbrhMEWXRQYZSX1532-05-68 12:33:00 Test Item Value Reference Range Interpretation Comments RDW (test code = RDW) 21.5 11.5-14.5 [place] 796562-06-28 12:33:00 Test Item Value Reference Range Interpretation Comments Platelet (test code = Platelet) 167 133-450 [facility] GreenvilleQyhrkdsVIYFENAQYO4531-50-70 12:33:00 Test Item Value Reference Range Interpretation Comments MPV (test code = MPV) 7.6 7.4-10.4 [facility] GreenvilleIsnpfrbWPJRFVPYFQ3792-60-50 12:33:00 Test Item Value Reference Range Interpretation Comments Segs (test code = Segs) 84.8 45.0-75.0 [place] 796562-06-28 12:33:00 Test Item Value Reference Range Interpretation Comments Lymphocytes (test code = Lymphocytes) 11.6 20.0-40.0 [place] 796562-06-28 12:33:00 Test Item Value Reference Range Interpretation Comments Monocytes (test code = Monocytes) 2.8 2.0-12.0 [facility] GreenvillePjalyafPIQTBAALWV2343-34-09 12:33:00 Test Item Value Reference Range Interpretation Comments Eosinophils (test code = 0.4 See_Comment [A utomated message] The Eosinophils) system which ge nerated this result tra nsmitted reference range : <=4.0. The reference r samantha was not used to int erpret this result as normal/abnormal . [facility] GreenvilleNfodzcrHKNGIWWWUN2078-54-60 12:33:00 Test Item Value Reference Range Interpretation Comments Basophils (test code = 0.4 See_Comment [Aut omated message] The Basophils) system which ge nerated this result tra nsmitted reference range : <=1.0. The reference r samantha was not used to int erpret this result as normal/abnormal . [facility] GreenvilleUesxybeGZJERRFVJF5170-70-74 12:33:00 Test Item Value Reference Range Interpretation Comments Neutrophils # (test code = Neutrophils 4.4 1.5-8.1 #) [place] 796562-06-28 12:33:00 Test Item Value Reference Range Interpretation Comments Lymphocytes # (test code = Lymphocytes 0.6 1.0-5.5 #) [place] 796562-06-28 12:33:00 Test Item Value Reference Range Interpretation Comments Monocytes # (test code 0.1 See_Comment [Aut omated message] The = Monocytes #) system which generated this result tra nsmitted reference range : <=0.8. The reference r samantha was not used to int erpret this result as normal/abnormal . [facility] GreenvilleGdxjodiQCWOPQVRRJ7206-17-72 12:33:00 Test Item Value Reference Range Interpretation Comments Macrocyte (test code = 1+ *ABN*(11/25/21 Macrocyte) 7:33 AM) [facility] GreenvilleAffagpmSGAHVTWQYN4274-56-49 12:33:00 Test Item Value Reference Range Interpretation Comments WBC (test code = WBC) 5.2 3.7-10.4 [facility] GreenvilleVifmcrqVUWJIAWYIA2819-95-58 12:33:00 Test Item Value Reference Range Interpretation Comments RBC (test code = RBC) 2.18 4.70-6.10 [facility] GreenvilleWfggtptVNJAQMNDCO4539-99-73 12:33:00 Test Item Value Reference Range Interpretation Comments Hgb (test code = Hgb) 7.8 14.0-18.0 [place] 796562-06-28 12:33:00 Test Item Value Reference Range Interpretation Comments Hct (test code = Hct) 23.6 42.0-54.0 [facility] GreenvilleSsyopdwDLFVYZWZAE0741-41-91 12:33:00 Test Item Value Reference Range Interpretation Comments MCV (test code = MCV) 108.4 80.0-94.0 [facility] GreenvilleVngrvbcZBANHIMJVR9230-03-08 12:33:00 Test Item Value Reference Range Interpretation Comments MCH (test code = MCH) 35.9 pg 27.0-31.0 [facility] GreenvilleUqibzxsTRZNFBLZGE6827-59-21 12:33:00 Test Item Value Reference Range Interpretation Comments MCHC (test code = MCHC) 33.1 32.0-36.0 [facility] GreenvilleBvqmoslYHLBTVBJMY8906-83-82 12:33:00 Test Item Value Reference Range Interpretation Comments RDW (test code = RDW) 21.5 11.5-14.5 [facility] GreenvilleUpqnflpCHUNBWVXTA6053-32-43 12:33:00 Test Item Value Reference Range Interpretation Comments Platelet (test code = Platelet) 167 133-450 [facility] GreenvilleIvxapdtTUTQPMUISS7830-59-52 12:33:00 Test Item Value Reference Range Interpretation Comments MPV (test code = MPV) 7.6 7.4-10.4 [facility] GreenvilleJfdorpjARPDMTSBNM1332-24-34 12:33:00 Test Item Value Reference Range Interpretation Comments Segs (test code = Segs) 84.8 45.0-75.0 [facility] GreenvilleLwuutyjURBWPSNDOU0645-39-14 12:33:00 Test Item Value Reference Range Interpretation Comments Lymphocytes (test code = Lymphocytes) 11.6 20.0-40.0 [facility] GreenvilleMmfvhvnMAUWJZAZXK9224-77-54 12:33:00 Test Item Value Reference Range Interpretation Comments Monocytes (test code = Monocytes) 2.8 2.0-12.0 [place] 796562-06-28 12:33:00 Test Item Value Reference Range Interpretation Comments Eosinophils (test code = 0.4 See_Comment [A utomated message] The Eosinophils) system which ge nerated this result tra nsmitted reference range : <=4.0. The reference r samantha was not used to int erpret this result as normal/abnormal . [place] 796562-06-28 12:33:00 Test Item Value Reference Range Interpretation Comments Basophils (test code = 0.4 See_Comment [Aut omated message] The Basophils) system which ge nerated this result tra nsmitted reference range : <=1.0. The reference r samantha was not used to int erpret this result as normal/abnormal . [facility] GreenvilleTnzjdzoMRJNPBEHJS5296-32-85 12:33:00 Test Item Value Reference Range Interpretation Comments Neutrophils # (test code = Neutrophils 4.4 1.5-8.1 #) [facility] GreenvilleCysizljMSYSWZSAOB4814-58-15 12:33:00 Test Item Value Reference Range Interpretation Comments Lymphocytes # (test code = Lymphocytes 0.6 1.0-5.5 #) [facility] GreenvilleEyzlnuoMGOUQOLUWN7140-48-53 12:33:00 Test Item Value Reference Range Interpretation Comments Monocytes # (test code 0.1 See_Comment [Aut omated message] The = Monocytes #) system which generated this result tra nsmitted reference range : <=0.8. The reference r samantha was not used to int erpret this result as normal/abnormal . [place]6562-06-28 12:33:00 Test Item Value Reference Range Interpretation Comments Macrocyte (test code = 1+ *ABN*(11/25/21 Macrocyte) 7:33 AM) [place] 796562-06-28 12:33:00 Test Item Value Reference Range Interpretation Comments WBC (test code = WBC) 5.2 3.7-10.4 [place] 796562-06-28 12:33:00 Test Item Value Reference Range Interpretation Comments RBC (test code = RBC) 2.18 4.70-6.10 [facility] GreenvilleHpecslnWCMTFCEIDV2138-16-91 12:33:00 Test Item Value Reference Range Interpretation Comments Hgb (test code = Hgb) 7.8 14.0-18.0 [facility] GreenvilleFjanonoQULDLFQARM3467-38-70 12:33:00 Test Item Value Reference Range Interpretation Comments Hct (test code = Hct) 23.6 42.0-54.0 [facility] GreenvilleZuqnhwmPGRFABAHZP7275-09-90 12:33:00 Test Item Value Reference Range Interpretation Comments MCV (test code = MCV) 108.4 80.0-94.0 [facility] GreenvilleYhctiioVPTFUCTPFJ4642-39-77 12:33:00 Test Item Value Reference Range Interpretation Comments MCH (test code = MCH) 35.9 pg 27.0-31.0 [facility] GreenvilleOrhbvqmHMKXXQJBGF5784-84-01 12:33:00 Test Item Value Reference Range Interpretation Comments MCHC (test code = MCHC) 33.1 32.0-36.0 [facility] GreenvilleGvhjmxgRYLEUTTKMM6318-38-15 12:33:00 Test Item Value Reference Range Interpretation Comments RDW (test code = RDW) 21.5 11.5-14.5 [facility] GreenvilleTdpidtaHXXWLHMZZF6754-23-57 12:33:00 Test Item Value Reference Range Interpretation Comments Platelet (test code = Platelet) 167 133-450 [facility] GreenvilleFfmkodiKCIEUZVHFF3340-91-60 12:33:00 Test Item Value Reference Range Interpretation Comments MPV (test code = MPV) 7.6 7.4-10.4 [facility] GreenvilleUvenjbuRAOZKLIVHL1637-60-26 12:33:00 Test Item Value Reference Range Interpretation Comments Segs (test code = Segs) 84.8 45.0-75.0 [facility] GreenvilleVchsnhvBMYXBQIJCD3090-09-26 12:33:00 Test Item Value Reference Range Interpretation Comments Lymphocytes (test code = Lymphocytes) 11.6 20.0-40.0 [facility] GreenvilleFusnuetEIFHSOSETB5479-50-95 12:33:00 Test Item Value Reference Range Interpretation Comments Monocytes (test code = Monocytes) 2.8 2.0-12.0 [place]6562-06-28 12:33:00 Test Item Value Reference Range Interpretation Comments Eosinophils (test code = 0.4 See_Comment [A utomated message] The Eosinophils) system which ge nerated this result tra nsmitted reference range : <=4.0. The reference r samantha was not used to int erpret this result as normal/abnormal . [facility] GreenvilleXihfobxRVJOSJQDDO0874-53-65 12:33:00 Test Item Value Reference Range Interpretation Comments Basophils (test code = 0.4 See_Comment [Aut omated message] The Basophils) system which ge nerated this result tra nsmitted reference range : <=1.0. The reference r samantha was not used to int erpret this result as normal/abnormal . [place]6562-06-28 12:33:00 Test Item Value Reference Range Interpretation Comments Neutrophils # (test code = Neutrophils 4.4 1.5-8.1 #) [place] 796562-06-28 12:33:00 Test Item Value Reference Range Interpretation Comments Lymphocytes # (test code = Lymphocytes 0.6 1.0-5.5 #) [place] 796562-06-28 12:33:00 Test Item Value Reference Range Interpretation Comments Monocytes # (test code 0.1 See_Comment [Aut omated message] The = Monocytes #) system which generated this result tra nsmitted reference range : <=0.8. The reference r samantha was not used to int erpret this result as normal/abnormal . [facility] GreenvilleEghvvnyKUWULQGKLB9736-56-39 12:33:00 Test Item Value Reference Range Interpretation Comments Macrocyte (test code = 1+ *ABN*(11/25/21 Macrocyte) 7:33 AM) [place] 796562-06-28 12:33:00 Test Item Value Reference Range Interpretation Comments WBC (test code = WBC) 5.2 3.7-10.4 [place] 796562-06-28 12:33:00 Test Item Value Reference Range Interpretation Comments RBC (test code = RBC) 2.18 4.70-6.10 [place]6562-06-28 12:33:00 Test Item Value Reference Range Interpretation Comments Hgb (test code = Hgb) 7.8 14.0-18.0 [place]6562-06-28 12:33:00 Test Item Value Reference Range Interpretation Comments Hct (test code = Hct) 23.6 42.0-54.0 [place] 796562-06-28 12:33:00 Test Item Value Reference Range Interpretation Comments MCV (test code = MCV) 108.4 80.0-94.0 [place]6562-06-28 12:33:00 Test Item Value Reference Range Interpretation Comments MCH (test code = MCH) 35.9 pg 27.0-31.0 [place] 796562-06-28 12:33:00 Test Item Value Reference Range Interpretation Comments MCHC (test code = MCHC) 33.1 32.0-36.0 [place] 796562-06-28 12:33:00 Test Item Value Reference Range Interpretation Comments RDW (test code = RDW) 21.5 11.5-14.5 [place]6562-06-28 12:33:00 Test Item Value Reference Range Interpretation Comments Platelet (test code = Platelet) 167 133-450 [facility] GreenvilleWyrqzqxVPCGQEFQTY9902-51-31 12:33:00 Test Item Value Reference Range Interpretation Comments MPV (test code = MPV) 7.6 7.4-10.4 [place]6562-06-28 12:33:00 Test Item Value Reference Range Interpretation Comments Segs (test code = Segs) 84.8 45.0-75.0 [facility] GreenvilleWsgkuhlGOPSEAWIHE0943-49-05 12:33:00 Test Item Value Reference Range Interpretation Comments Lymphocytes (test code = Lymphocytes) 11.6 20.0-40.0 [place]6562-06-28 12:33:00 Test Item Value Reference Range Interpretation Comments Monocytes (test code = Monocytes) 2.8 2.0-12.0 [place] [address]-06-28 12:33:00 Test Item Value Reference Range Interpretation Comments Eosinophils (test code = 0.4 See_Comment [A utomated message] The Eosinophils) system which ge nerated this result tra nsmitted reference range : <=4.0. The reference r samantha was not used to int erpret this result as normal/abnormal . [place]6562-06-28 12:33:00 Test Item Value Reference Range Interpretation Comments Basophils (test code = 0.4 See_Comment [Aut omated message] The Basophils) system which ge nerated this result tra nsmitted reference range : <=1.0. The reference r samantha was not used to int erpret this result as normal/abnormal . [facility] GreenvilleWawyccmICPXGDOZMZ8710-65-51 12:33:00 Test Item Value Reference Range Interpretation Comments Neutrophils # (test code = Neutrophils 4.4 1.5-8.1 #) [facility] GreenvilleDqvccyiVLHNPXBPWG6853-73-31 12:33:00 Test Item Value Reference Range Interpretation Comments Lymphocytes # (test code = Lymphocytes 0.6 1.0-5.5 #) [place]6562-06-28 12:33:00 Test Item Value Reference Range Interpretation Comments Monocytes # (test code 0.1 See_Comment [Aut omated message] The = Monocytes #) system which generated this result tra nsmitted reference range : <=0.8. The reference r samantha was not used to int erpret this result as normal/abnormal . [facility] GreenvilleHlghcixUCWWFVMWDH4987-77-56 12:33:00 Test Item Value Reference Range Interpretation Comments Macrocyte (test code = 1+ *ABN*(11/25/21 Macrocyte) 7:33 AM) [facility] GreenvilleLbhqxpcWNFMVVNWHO1734-74-97 12:33:00 Test Item Value Reference Range Interpretation Comments WBC (test code = WBC) 5.2 3.7-10.4 [facility] GreenvilleJmybcskUMYHYCZCSJ6349-96-33 12:33:00 Test Item Value Reference Range Interpretation Comments RBC (test code = RBC) 2.18 4.70-6.10 [facility] GreenvilleGkrdxncQBNUKJHZDW3605-12-81 12:33:00 Test Item Value Reference Range Interpretation Comments Hgb (test code = Hgb) 7.8 14.0-18.0 [place]6562-06-28 12:33:00 Test Item Value Reference Range Interpretation Comments Hct (test code = Hct) 23.6 42.0-54.0 [facility] GreenvilleFthklefZIYJCYBXEG3650-41-74 12:33:00 Test Item Value Reference Range Interpretation Comments MCV (test code = MCV) 108.4 80.0-94.0 [place]6562-06-28 12:33:00 Test Item Value Reference Range Interpretation Comments MCH (test code = MCH) 35.9 pg 27.0-31.0 [place] 796562-06-28 12:33:00 Test Item Value Reference Range Interpretation Comments MCHC (test code = MCHC) 33.1 32.0-36.0 [place] 796562-06-28 12:33:00 Test Item Value Reference Range Interpretation Comments RDW (test code = RDW) 21.5 11.5-14.5 [place]6562-06-28 12:33:00 Test Item Value Reference Range Interpretation Comments Platelet (test code = Platelet) 167 133-450 [place] 796562-06-28 12:33:00 Test Item Value Reference Range Interpretation Comments MPV (test code = MPV) 7.6 7.4-10.4 [place] 796562-06-28 12:33:00 Test Item Value Reference Range Interpretation Comments Segs (test code = Segs) 84.8 45.0-75.0 [place] 796562-06-28 12:33:00 Test Item Value Reference Range Interpretation Comments Lymphocytes (test code = Lymphocytes) 11.6 20.0-40.0 [place] 796562-06-28 12:33:00 Test Item Value Reference Range Interpretation Comments Monocytes (test code = Monocytes) 2.8 2.0-12.0 [place] [address]-06-28 12:33:00 Test Item Value Reference Range Interpretation Comments Eosinophils (test code = 0.4 See_Comment [A utomated message] The Eosinophils) system which ge nerated this result tra nsmitted reference range : <=4.0. The reference r samantha was not used to int erpret this result as normal/abnormal . [place]6562-06-28 12:33:00 Test Item Value Reference Range Interpretation Comments Basophils (test code = 0.4 See_Comment [Aut omated message] The Basophils) system which ge nerated this result tra nsmitted reference range : <=1.0. The reference r samantha was not used to int erpret this result as normal/abnormal . [place] [address]-06-28 12:33:00 Test Item Value Reference Range Interpretation Comments Neutrophils # (test code = Neutrophils 4.4 1.5-8.1 #) [place]6562-06-28 12:33:00 Test Item Value Reference Range Interpretation Comments Lymphocytes # (test code = Lymphocytes 0.6 1.0-5.5 #) [facility] GreenvilleMrrbfgmUQPNRIURWC1411-44-68 12:33:00 Test Item Value Reference Range Interpretation Comments Monocytes # (test code 0.1 See_Comment [Aut omated message] The = Monocytes #) system which generated this result tra nsmitted reference range : <=0.8. The reference r samantha was not used to int erpret this result as normal/abnormal . [facility] GreenvilleXszrmhwWBMEPMTUKB8991-74-99 12:33:00 Test Item Value Reference Range Interpretation Comments Macrocyte (test code = 1+ *ABN*(11/25/21 Macrocyte) 7:33 AM) [place]6562-06-28 12:33:00 Test Item Value Reference Range Interpretation Comments WBC (test code = WBC) 5.2 3.7-10.4 [place]6562-06-28 12:33:00 Test Item Value Reference Range Interpretation Comments RBC (test code = RBC) 2.18 4.70-6.10 [facility] GreenvilleAbwljzsCTOCLRUEKC3935-29-90 12:33:00 Test Item Value Reference Range Interpretation Comments Hgb (test code = Hgb) 7.8 14.0-18.0 [place]6562-06-28 12:33:00 Test Item Value Reference Range Interpretation Comments Hct (test code = Hct) 23.6 42.0-54.0 [place]6562-06-28 12:33:00 Test Item Value Reference Range Interpretation Comments MCV (test code = MCV) 108.4 80.0-94.0 [place]6562-06-28 12:33:00 Test Item Value Reference Range Interpretation Comments MCH (test code = MCH) 35.9 pg 27.0-31.0 [place] 796562-06-28 12:33:00 Test Item Value Reference Range Interpretation Comments MCHC (test code = MCHC) 33.1 32.0-36.0 [place] 796562-06-28 12:33:00 Test Item Value Reference Range Interpretation Comments RDW (test code = RDW) 21.5 11.5-14.5 [place]6562-06-28 12:33:00 Test Item Value Reference Range Interpretation Comments Platelet (test code = Platelet) 167 133-450 [facility] GreenvilleFbzwnctKUDGIBBEOA2196-66-81 12:33:00 Test Item Value Reference Range Interpretation Comments MPV (test code = MPV) 7.6 7.4-10.4 [facility] GreenvilleXxshkckUOHRPVOWEV0037-28-43 12:33:00 Test Item Value Reference Range Interpretation Comments Segs (test code = Segs) 84.8 45.0-75.0 [place]6562-06-28 12:33:00 Test Item Value Reference Range Interpretation Comments Lymphocytes (test code = Lymphocytes) 11.6 20.0-40.0 [place]6562-06-28 12:33:00 Test Item Value Reference Range Interpretation Comments Monocytes (test code = Monocytes) 2.8 2.0-12.0 [facility] GreenvilleVifzfloMPUBBHSZPL5001-40-42 12:33:00 Test Item Value Reference Range Interpretation Comments Eosinophils (test code = 0.4 See_Comment [A utomated message] The Eosinophils) system which ge nerated this result tra nsmitted reference range : <=4.0. The reference r samantha was not used to int erpret this result as normal/abnormal . [facility] GreenvilleWdlatwtNBPZJBEAET5429-87-58 12:33:00 Test Item Value Reference Range Interpretation Comments Basophils (test code = 0.4 See_Comment [Aut omated message] The Basophils) system which ge nerated this result tra nsmitted reference range : <=1.0. The reference r samantha was not used to int erpret this result as normal/abnormal . [facility] GreenvilleKajqpbrJQISHZOIVN9469-62-27 12:33:00 Test Item Value Reference Range Interpretation Comments Neutrophils # (test code = Neutrophils 4.4 1.5-8.1 #) [place]6562-06-28 12:33:00 Test Item Value Reference Range Interpretation Comments Lymphocytes # (test code = Lymphocytes 0.6 1.0-5.5 #) [place]6562-06-28 12:33:00 Test Item Value Reference Range Interpretation Comments Monocytes # (test code 0.1 See_Comment [Aut omated message] The = Monocytes #) system which generated this result tra nsmitted reference range : <=0.8. The reference r samantha was not used to int erpret this result as normal/abnormal . [facility] GreenvilleJznpemeZLCIODVOCM0282-46-37 12:33:00 Test Item Value Reference Range Interpretation Comments Macrocyte (test code = 1+ *ABN*(11/25/21 Macrocyte) 7:33 AM) [facility] GreenvilleHqhjgcpAVYWLQQOLV1808-34-63 12:33:00 Test Item Value Reference Range Interpretation Comments WBC (test code = WBC) 5.2 3.7-10.4 [facility]villeKzwgtikEBWUOAIHEU3012-45-23 12:33:00 Test Item Value Reference Range Interpretation Comments RBC (test code = RBC) 2.18 4.70-6.10 [facility]villeScrmyqrISBVHERGJC1559-57-84 12:33:00 Test Item Value Reference Range Interpretation Comments Hgb (test code = Hgb) 7.8 14.0-18.0 [facility]villeIfucjywWWBUOCVJLT2728-26-10 12:33:00 Test Item Value Reference Range Interpretation Comments Hct (test code = Hct) 23.6 42.0-54.0 [facility] GreenvilleDiqejwlGWVURUOIHP5617-15-81 12:33:00 Test Item Value Reference Range Interpretation Comments MCV (test code = MCV) 108.4 80.0-94.0 [facility] GreenvilleGzxzjynKMYFXEMWXB9472-29-06 12:33:00 Test Item Value Reference Range Interpretation Comments MCH (test code = MCH) 35.9 pg 27.0-31.0 [facility]villeAgkyuflRWXTJXZSHT9800-27-58 12:33:00 Test Item Value Reference Range Interpretation Comments MCHC (test code = MCHC) 33.1 32.0-36.0 [facility]villeSjrkrxkCSPRFGPNPT2347-97-07 12:33:00 Test Item Value Reference Range Interpretation Comments RDW (test code = RDW) 21.5 11.5-14.5 [facility] GreenvilleOifgxfaXSERHWDVNH5481-73-45 12:33:00 Test Item Value Reference Range Interpretation Comments Platelet (test code = Platelet) 167 133-450 [facility] GreenvilleGpfvlkjPHIDTJIDSB8681-64-09 12:33:00 Test Item Value Reference Range Interpretation Comments MPV (test code = MPV) 7.6 7.4-10.4 [facility] GreenvilleFwxgzsxCANLDPVRLX4525-49-04 12:33:00 Test Item Value Reference Range Interpretation Comments Segs (test code = Segs) 84.8 45.0-75.0 [place]6562-06-28 12:33:00 Test Item Value Reference Range Interpretation Comments Lymphocytes (test code = Lymphocytes) 11.6 20.0-40.0 [facility]villeHlijemuVHJAKQNSOA6134-48-34 12:33:00 Test Item Value Reference Range Interpretation Comments Monocytes (test code = Monocytes) 2.8 2.0-12.0 [place] 796562-06-28 12:33:00 Test Item Value Reference Range Interpretation Comments Eosinophils (test code = 0.4 See_Comment [A utomated message] The Eosinophils) system which ge nerated this result tra nsmitted reference range : <=4.0. The reference r samantha was not used to int erpret this result as normal/abnormal . [place] 796562-06-28 12:33:00 Test Item Value Reference Range Interpretation Comments Basophils (test code = 0.4 See_Comment [Aut omated message] The Basophils) system which ge nerated this result tra nsmitted reference range : <=1.0. The reference r samantha was not used to int erpret this result as normal/abnormal . [facility]villeAbbvumnXAXXWCSBTM5292-22-38 12:33:00 Test Item Value Reference Range Interpretation Comments Neutrophils # (test code = Neutrophils 4.4 1.5-8.1 #) [facility]villeXyekuwfBACQSMMQNN7512-62-20 12:33:00 Test Item Value Reference Range Interpretation Comments Lymphocytes # (test code = Lymphocytes 0.6 1.0-5.5 #) [facility] GreenvilleZccymixHZNAGHNTKS8287-67-45 12:33:00 Test Item Value Reference Range Interpretation Comments Monocytes # (test code 0.1 See_Comment [Aut omated message] The = Monocytes #) system which generated this result tra nsmitted reference range : <=0.8. The reference r samantha was not used to int erpret this result as normal/abnormal . [facility] GreenvilleGlujcciLQFKERNAWO9151-47-06 12:33:00 Test Item Value Reference Range Interpretation Comments Macrocyte (test code = 1+ *ABN*(11/25/21 Macrocyte) 7:33 AM) [facility]villeGttyxwzRRIXGBYEZN7612-37-77 12:33:00 Test Item Value Reference Range Interpretation Comments WBC (test code = WBC) 5.2 3.7-10.4 [place] 796562-06-28 12:33:00 Test Item Value Reference Range Interpretation Comments RBC (test code = RBC) 2.18 4.70-6.10 [place] 796562-06-28 12:33:00 Test Item Value Reference Range Interpretation Comments Hgb (test code = Hgb) 7.8 14.0-18.0 [place] 796562-06-28 12:33:00 Test Item Value Reference Range Interpretation Comments Hct (test code = Hct) 23.6 42.0-54.0 [place] 796562-06-28 12:33:00 Test Item Value Reference Range Interpretation Comments MCV (test code = MCV) 108.4 80.0-94.0 [place] [address]-06-28 12:33:00 Test Item Value Reference Range Interpretation Comments MCH (test code = MCH) 35.9 pg 27.0-31.0 [place] 796562-06-28 12:33:00 Test Item Value Reference Range Interpretation Comments MCHC (test code = MCHC) 33.1 32.0-36.0 [place] 796562-06-28 12:33:00 Test Item Value Reference Range Interpretation Comments RDW (test code = RDW) 21.5 11.5-14.5 [place] 796562-06-28 12:33:00 Test Item Value Reference Range Interpretation Comments Platelet (test code = Platelet) 167 133-450 [place] 796562-06-28 12:33:00 Test Item Value Reference Range Interpretation Comments MPV (test code = MPV) 7.6 7.4-10.4 [place] 796562-06-28 12:33:00 Test Item Value Reference Range Interpretation Comments Segs (test code = Segs) 84.8 45.0-75.0 [place] [address]-06-28 12:33:00 Test Item Value Reference Range Interpretation Comments Lymphocytes (test code = Lymphocytes) 11.6 20.0-40.0 [place] [address]-06-28 12:33:00 Test Item Value Reference Range Interpretation Comments Monocytes (test code = Monocytes) 2.8 2.0-12.0 [place] [address]-06-28 12:33:00 Test Item Value Reference Range Interpretation Comments Eosinophils (test code = 0.4 See_Comment [A utomated message] The Eosinophils) system which ge nerated this result tra nsmitted reference range : <=4.0. The reference r samantha was not used to int erpret this result as normal/abnormal . [facility]villeXcjadqmKHDTBDDFEJ0772-05-05 12:33:00 Test Item Value Reference Range Interpretation Comments Basophils (test code = 0.4 See_Comment [Aut omated message] The Basophils) system which ge nerated this result tra nsmitted reference range : <=1.0. The reference r samantha was not used to int erpret this result as normal/abnormal . [place] 796562-06-28 12:33:00 Test Item Value Reference Range Interpretation Comments Neutrophils # (test code = Neutrophils 4.4 1.5-8.1 #) [place] 796562-06-28 12:33:00 Test Item Value Reference Range Interpretation Comments Lymphocytes # (test code = Lymphocytes 0.6 1.0-5.5 #) [place] 796562-06-28 12:33:00 Test Item Value Reference Range Interpretation Comments Monocytes # (test code 0.1 See_Comment [Aut omated message] The = Monocytes #) system which generated this result tra nsmitted reference range : <=0.8. The reference r samantha was not used to int erpret this result as normal/abnormal . [facility]villeBxqzuogMIPCFOWFKO4998-30-25 12:33:00 Test Item Value Reference Range Interpretation Comments Macrocyte (test code = 1+ *ABN*(11/25/21 Macrocyte) 7:33 AM) [place]6562-06-28 12:33:00 Test Item Value Reference Range Interpretation Comments WBC (test code = WBC) 5.2 3.7-10.4 [place] 796562-06-28 12:33:00 Test Item Value Reference Range Interpretation Comments RBC (test code = RBC) 2.18 4.70-6.10 [place] 796562-06-28 12:33:00 Test Item Value Reference Range Interpretation Comments Hgb (test code = Hgb) 7.8 14.0-18.0 [place] 796562-06-28 12:33:00 Test Item Value Reference Range Interpretation Comments Hct (test code = Hct) 23.6 42.0-54.0 [place] 796562-06-28 12:33:00 Test Item Value Reference Range Interpretation Comments MCV (test code = MCV) 108.4 80.0-94.0 [place] 796562-06-28 12:33:00 Test Item Value Reference Range Interpretation Comments MCH (test code = MCH) 35.9 pg 27.0-31.0 [place] 796562-06-28 12:33:00 Test Item Value Reference Range Interpretation Comments MCHC (test code = MCHC) 33.1 32.0-36.0 [place] [address]-06-28 12:33:00 Test Item Value Reference Range Interpretation Comments RDW (test code = RDW) 21.5 11.5-14.5 [place] [address]-06-28 12:33:00 Test Item Value Reference Range Interpretation Comments Platelet (test code = Platelet) 167 133-450 [place] 796562-06-28 12:33:00 Test Item Value Reference Range Interpretation Comments MPV (test code = MPV) 7.6 7.4-10.4 [place] [address]-06-28 12:33:00 Test Item Value Reference Range Interpretation Comments Segs (test code = Segs) 84.8 45.0-75.0 [place] 796562-06-28 12:33:00 Test Item Value Reference Range Interpretation Comments Lymphocytes (test code = Lymphocytes) 11.6 20.0-40.0 [place] 796562-06-28 12:33:00 Test Item Value Reference Range Interpretation Comments Monocytes (test code = Monocytes) 2.8 2.0-12.0 [place] [address]-06-28 12:33:00 Test Item Value Reference Range Interpretation Comments Eosinophils (test code = 0.4 See_Comment [A utomated message] The Eosinophils) system which ge nerated this result tra nsmitted reference range : <=4.0. The reference r samantha was not used to int erpret this result as normal/abnormal . [place] 796562-06-28 12:33:00 Test Item Value Reference Range Interpretation Comments Basophils (test code = 0.4 See_Comment [Aut omated message] The Basophils) system which ge nerated this result tra nsmitted reference range : <=1.0. The reference r samantha was not used to int erpret this result as normal/abnormal . [facility] GreenvilleAzsloseNQPXUFRGKF3416-57-18 12:33:00 Test Item Value Reference Range Interpretation Comments Neutrophils # (test code = Neutrophils 4.4 1.5-8.1 #) [facility] GreenvilleTjieidgBEVEAADYIC3317-79-62 12:33:00 Test Item Value Reference Range Interpretation Comments Lymphocytes # (test code = Lymphocytes 0.6 1.0-5.5 #) [facility] GreenvilleDxubwjyIAOJRECMAM7393-15-85 12:33:00 Test Item Value Reference Range Interpretation Comments Monocytes # (test code 0.1 See_Comment [Aut omated message] The = Monocytes #) system which generated this result tra nsmitted reference range : <=0.8. The reference r samantha was not used to int erpret this result as normal/abnormal . [facility] GreenvilleYpwwvvaEFELEHJYYC7743-16-79 12:33:00 Test Item Value Reference Range Interpretation Comments Macrocyte (test code = 1+ *ABN*(11/25/21 Macrocyte) 7:33 AM) [facility] GreenvilleBkcimdwKCFJZBBLTS5390-91-07 12:33:00 Test Item Value Reference Range Interpretation Comments WBC (test code = WBC) 5.2 3.7-10.4 [facility] GreenvilleBtbcawqPEHIKZATHY4272-81-09 12:33:00 Test Item Value Reference Range Interpretation Comments RBC (test code = RBC) 2.18 4.70-6.10 [facility] GreenvilleTkinnchQYXYIAWCAT4954-18-34 12:33:00 Test Item Value Reference Range Interpretation Comments Hgb (test code = Hgb) 7.8 14.0-18.0 [place] 796562-06-28 12:33:00 Test Item Value Reference Range Interpretation Comments Hct (test code = Hct) 23.6 42.0-54.0 [facility] GreenvilleYmopslkJLYMUUIVAD8440-76-77 12:33:00 Test Item Value Reference Range Interpretation Comments MCV (test code = MCV) 108.4 80.0-94.0 [place] 796562-06-28 12:33:00 Test Item Value Reference Range Interpretation Comments MCH (test code = MCH) 35.9 pg 27.0-31.0 [place] 796562-06-28 12:33:00 Test Item Value Reference Range Interpretation Comments MCHC (test code = MCHC) 33.1 32.0-36.0 [place] 796562-06-28 12:33:00 Test Item Value Reference Range Interpretation Comments RDW (test code = RDW) 21.5 11.5-14.5 [place] 796562-06-28 12:33:00 Test Item Value Reference Range Interpretation Comments Platelet (test code = Platelet) 167 133-450 [place] 796562-06-28 12:33:00 Test Item Value Reference Range Interpretation Comments MPV (test code = MPV) 7.6 7.4-10.4 [place] [address]-06-28 12:33:00 Test Item Value Reference Range Interpretation Comments Segs (test code = Segs) 84.8 45.0-75.0 [place] 796562-06-28 12:33:00 Test Item Value Reference Range Interpretation Comments Lymphocytes (test code = Lymphocytes) 11.6 20.0-40.0 [place] 796562-06-28 12:33:00 Test Item Value Reference Range Interpretation Comments Monocytes (test code = Monocytes) 2.8 2.0-12.0 [place] 796562-06-28 12:33:00 Test Item Value Reference Range Interpretation Comments Eosinophils (test code = 0.4 See_Comment [A utomated message] The Eosinophils) system which ge nerated this result tra nsmitted reference range : <=4.0. The reference r samantha was not used to int erpret this result as normal/abnormal . [place] 796562-06-28 12:33:00 Test Item Value Reference Range Interpretation Comments Basophils (test code = 0.4 See_Comment [Aut omated message] The Basophils) system which ge nerated this result tra nsmitted reference range : <=1.0. The reference r samantha was not used to int erpret this result as normal/abnormal . [place] 796562-06-28 12:33:00 Test Item Value Reference Range Interpretation Comments Neutrophils # (test code = Neutrophils 4.4 1.5-8.1 #) [place] 796562-06-28 12:33:00 Test Item Value Reference Range Interpretation Comments Lymphocytes # (test code = Lymphocytes 0.6 1.0-5.5 #) [place] 796562-06-28 12:33:00 Test Item Value Reference Range Interpretation Comments Monocytes # (test code 0.1 See_Comment [Aut omated message] The = Monocytes #) system which generated this result tra nsmitted reference range : <=0.8. The reference r samantha was not used to int erpret this result as normal/abnormal . [facility]villeIvlqdjuPOYOIXIDKZ6043-54-45 12:33:00 Test Item Value Reference Range Interpretation Comments Macrocyte (test code = 1+ *ABN*(11/25/21 Macrocyte) 7:33 AM) [place] 796562-06-28 12:33:00 Test Item Value Reference Range Interpretation Comments WBC (test code = WBC) 5.2 3.7-10.4 [place] 796562-06-28 12:33:00 Test Item Value Reference Range Interpretation Comments RBC (test code = RBC) 2.18 4.70-6.10 [place] 796562-06-28 12:33:00 Test Item Value Reference Range Interpretation Comments Hgb (test code = Hgb) 7.8 14.0-18.0 [place] 796562-06-28 12:33:00 Test Item Value Reference Range Interpretation Comments Hct (test code = Hct) 23.6 42.0-54.0 [place] 796562-06-28 12:33:00 Test Item Value Reference Range Interpretation Comments MCV (test code = MCV) 108.4 80.0-94.0 [place] 796562-06-28 12:33:00 Test Item Value Reference Range Interpretation Comments MCH (test code = MCH) 35.9 pg 27.0-31.0 [place] 796562-06-28 12:33:00 Test Item Value Reference Range Interpretation Comments MCHC (test code = MCHC) 33.1 32.0-36.0 [place] 796562-06-28 12:33:00 Test Item Value Reference Range Interpretation Comments RDW (test code = RDW) 21.5 11.5-14.5 [place] 796562-06-28 12:33:00 Test Item Value Reference Range Interpretation Comments Platelet (test code = Platelet) 167 133-450 [place] 796562-06-28 12:33:00 Test Item Value Reference Range Interpretation Comments MPV (test code = MPV) 7.6 7.4-10.4 [place] 796562-06-28 12:33:00 Test Item Value Reference Range Interpretation Comments Segs (test code = Segs) 84.8 45.0-75.0 [place] 796562-06-28 12:33:00 Test Item Value Reference Range Interpretation Comments Lymphocytes (test code = Lymphocytes) 11.6 20.0-40.0 [place] 796562-06-28 12:33:00 Test Item Value Reference Range Interpretation Comments Monocytes (test code = Monocytes) 2.8 2.0-12.0 [place] 796562-06-28 12:33:00 Test Item Value Reference Range Interpretation Comments Eosinophils (test code = 0.4 See_Comment [A utomated message] The Eosinophils) system which ge nerated this result tra nsmitted reference range : <=4.0. The reference r samantha was not used to int erpret this result as normal/abnormal . [facility] GreenvilleAttyxoaRBEUUISWFK0567-34-08 12:33:00 Test Item Value Reference Range Interpretation Comments Basophils (test code = 0.4 See_Comment [Aut omated message] The Basophils) system which ge nerated this result tra nsmitted reference range : <=1.0. The reference r samantha was not used to int erpret this result as normal/abnormal . [facility] GreenvilleLxdaborOIEBXTZTIM3695-87-78 12:33:00 Test Item Value Reference Range Interpretation Comments Neutrophils # (test code = Neutrophils 4.4 1.5-8.1 #) [facility] GreenvilleBkwvlnlGNZDDIUYQZ1971-41-29 12:33:00 Test Item Value Reference Range Interpretation Comments Lymphocytes # (test code = Lymphocytes 0.6 1.0-5.5 #) [place]6562-06-28 12:33:00 Test Item Value Reference Range Interpretation Comments Monocytes # (test code 0.1 See_Comment [Aut omated message] The = Monocytes #) system which generated this result tra nsmitted reference range : <=0.8. The reference r samantha was not used to int erpret this result as normal/abnormal . [facility]villeHxtegluIOCTUCSHRB5190-88-65 12:33:00 Test Item Value Reference Range Interpretation Comments Macrocyte (test code = 1+ *ABN*(11/25/21 Macrocyte) 7:33 AM) [facility] GreenvilleOdwpjhtPGTNJSNXHD9822-99-69 12:33:00 Test Item Value Reference Range Interpretation Comments WBC (test code = WBC) 5.2 3.7-10.4 [place] 796562-06-28 12:33:00 Test Item Value Reference Range Interpretation Comments RBC (test code = RBC) 2.18 4.70-6.10 [place] 796562-06-28 12:33:00 Test Item Value Reference Range Interpretation Comments Hgb (test code = Hgb) 7.8 14.0-18.0 [place] 796562-06-28 12:33:00 Test Item Value Reference Range Interpretation Comments Hct (test code = Hct) 23.6 42.0-54.0 [place] 796562-06-28 12:33:00 Test Item Value Reference Range Interpretation Comments MCV (test code = MCV) 108.4 80.0-94.0 [place] 796562-06-28 12:33:00 Test Item Value Reference Range Interpretation Comments MCH (test code = MCH) 35.9 pg 27.0-31.0 [facility] GreenvilleIckydsuGGLBAAUMVA4158-40-47 12:33:00 Test Item Value Reference Range Interpretation Comments MCHC (test code = MCHC) 33.1 32.0-36.0 [facility]villeXdlwfahYOQVGKGAHD1590-54-35 12:33:00 Test Item Value Reference Range Interpretation Comments RDW (test code = RDW) 21.5 11.5-14.5 [place]6562-06-28 12:33:00 Test Item Value Reference Range Interpretation Comments Platelet (test code = Platelet) 167 133-450 [facility] GreenvilleXraacehCVIVXMZJDC8586-74-02 12:33:00 Test Item Value Reference Range Interpretation Comments MPV (test code = MPV) 7.6 7.4-10.4 [place] 796562-06-28 12:33:00 Test Item Value Reference Range Interpretation Comments Segs (test code = Segs) 84.8 45.0-75.0 [place] 796562-06-28 12:33:00 Test Item Value Reference Range Interpretation Comments Lymphocytes (test code = Lymphocytes) 11.6 20.0-40.0 [place] 796562-06-28 12:33:00 Test Item Value Reference Range Interpretation Comments Monocytes (test code = Monocytes) 2.8 2.0-12.0 [place] 796562-06-28 12:33:00 Test Item Value Reference Range Interpretation Comments Eosinophils (test code = 0.4 See_Comment [A utomated message] The Eosinophils) system which ge nerated this result tra nsmitted reference range : <=4.0. The reference r samantha was not used to int erpret this result as normal/abnormal . [place]6562-06-28 12:33:00 Test Item Value Reference Range Interpretation Comments Basophils (test code = 0.4 See_Comment [Aut omated message] The Basophils) system which ge nerated this result tra nsmitted reference range : <=1.0. The reference r samantha was not used to int erpret this result as normal/abnormal . [facility] GreenvilleJuywvokGZEIXAXANH7097-22-28 12:33:00 Test Item Value Reference Range Interpretation Comments Neutrophils # (test code = Neutrophils 4.4 1.5-8.1 #) [facility]villeFkbtjfqMESLXRNKPA4830-48-88 12:33:00 Test Item Value Reference Range Interpretation Comments Lymphocytes # (test code = Lymphocytes 0.6 1.0-5.5 #) [place]6562-06-28 12:33:00 Test Item Value Reference Range Interpretation Comments Monocytes # (test code 0.1 See_Comment [Aut omated message] The = Monocytes #) system which generated this result tra nsmitted reference range : <=0.8. The reference r samantha was not used to int erpret this result as normal/abnormal . [facility]villeEdqgbssATLLQKZKOY4758-91-72 12:33:00 Test Item Value Reference Range Interpretation Comments Macrocyte (test code = 1+ *ABN*(11/25/21 Macrocyte) 7:33 AM) [facility]villeObvwptyBJZBMPNMVC4633-25-51 12:33:00 Test Item Value Reference Range Interpretation Comments WBC (test code = WBC) 5.2 3.7-10.4 [place]6562-06-28 12:33:00 Test Item Value Reference Range Interpretation Comments RBC (test code = RBC) 2.18 4.70-6.10 [facility] GreenvilleMjzwnumEOOWXXLPUW3307-66-92 12:33:00 Test Item Value Reference Range Interpretation Comments Hgb (test code = Hgb) 7.8 14.0-18.0 [place] 796562-06-28 12:33:00 Test Item Value Reference Range Interpretation Comments Hct (test code = Hct) 23.6 42.0-54.0 [facility] GreenvilleCnfxiqpJMBIRQZICM4816-53-18 12:33:00 Test Item Value Reference Range Interpretation Comments MCV (test code = MCV) 108.4 80.0-94.0 [place] 796562-06-28 12:33:00 Test Item Value Reference Range Interpretation Comments MCH (test code = MCH) 35.9 pg 27.0-31.0 [facility] GreenvilleLmljzphRGHLYSWATJ9162-09-42 12:33:00 Test Item Value Reference Range Interpretation Comments MCHC (test code = MCHC) 33.1 32.0-36.0 [facility] GreenvilleLygjnzzVQSPBMCWPF1516-80-87 12:33:00 Test Item Value Reference Range Interpretation Comments RDW (test code = RDW) 21.5 11.5-14.5 [facility]villeSltycvbOMUFIRRFSN7046-79-83 12:33:00 Test Item Value Reference Range Interpretation Comments Platelet (test code = Platelet) 167 133-450 [facility]villePybsjpqQDFHJOFTUR7553-67-87 12:33:00 Test Item Value Reference Range Interpretation Comments MPV (test code = MPV) 7.6 7.4-10.4 [facility]2022-06-28 11:17:00 Test Item Value Reference Range Interpretation Comments Vitamin B12 Lvl (test code = Vitamin 1508 B12 Lvl) [facility]2022-06-28 11:17:00 Test Item Value Reference Range Interpretation Comments Folate Lvl (test code = Folate Lvl) 22.3 [facility]2022-06-28 11:17:00 Test Item Value Reference Range Interpretation Comments Ferritin Lvl (test code = Ferritin Lvl) 4374 58-622 [facility]2022-06-28 11:17:00 Test Item Value Reference Range Interpretation Comments Glucose Lvl (test code = Glucose Lvl) 205 70-99 [place] 509392-06-28 11:17:00 Test Item Value Reference Range Interpretation Comments BUN (test code = BUN) 60 7-22 [place] 509392-06-28 11:17:00 Test Item Value Reference Range Interpretation Comments Creatinine Lvl (test code = Creatinine 8.46 0.50-1.40 Lvl) [place] 509392-06-28 11:17:00 Test Item Value Reference Range Interpretation Comments Sodium Lvl (test code = Sodium Lvl) 131 135-145 [place] 509392-06-28 11:17:00 Test Item Value Reference Range Interpretation Comments Potassium Lvl (test code = Potassium 5.2 3.5-5.1 Lvl) [place] 509392-06-28 11:17:00 Test Item Value Reference Range Interpretation Comments Chloride Lvl (test code = Chloride Lvl) 93 95-109 [place] 509392-06-28 11:17:00 Test Item Value Reference Range Interpretation Comments CO2 (test code = CO2) 29 24-32 [place] 509392-06-28 11:17:00 Test Item Value Reference Range Interpretation Comments Calcium Lvl (test code = Calcium Lvl) 8.7 8.5-10.5 [place] 509392-06-28 11:17:00 Test Item Value Reference Range Interpretation Comments Total Protein (test code = Total 6.0 6.4-8.4 Protein) [place] 509392-06-28 11:17:00 Test Item Value Reference Range Interpretation Comments Albumin Lvl (test code = Albumin Lvl) 2.6 3.5-5.0 [place] 509392-06-28 11:17:00 Test Item Value Reference Range Interpretation Comments ALT (test code = ALT) 43 See_Comment [Auto mated message] The system which ge nerated this result transmit swathi reference range : <=65. The reference range was not used to interpr et this result as deny l/abnormal. [place] 509392-06-28 11:17:00 Test Item Value Reference Range Interpretation Comments AST (test code = AST) 35 See_Comment [Auto mated message] The system which ge nerated this result transmit swathi reference range : <=37. The reference range was not used to interpr et this result as deny l/abnormal. [facility]2022-06-28 11:17:00 Test Item Value Reference Range Interpretation Comments Alk Phos (test code = Alk Phos) 385 39-136 [place] 509392-06-28 11:17:00 Test Item Value Reference Range Interpretation Comments Bili Total (test code = Bili Total) 1.2 0.2-1.3 [facility]2022-06-28 11:17:00 Test Item Value Reference Range Interpretation Comments AGAP (test code = AGAP) 14.2 10.0-20.0 [place] 509392-06-28 11:17:00 Test Item Value Reference Range Interpretation Comments B/C Ratio (test code = B/C Ratio) 7 1 6-25 [place] 509392-06-28 11:17:00 Test Item Value Reference Range Interpretation Comments Globulin (test code = Globulin) 3.4 2.7-4.2 [facility]2022-06-28 11:17:00 Test Item Value Reference Range Interpretation Comments A/G Ratio (test code = A/G Ratio) 0.8 1 0.7-1.6 [place] 509392-06-28 11:17:00 Test Item Value Reference Range Interpretation Comments eGFR (test code = eGFR) 6 [facility]2022-06-28 11:17:00 Test Item Value Reference Range Interpretation Comments Magnesium Lvl (test code = Magnesium 1.9 1.8-2.4 Lvl) [facility]2022-06-28 11:17:00 Test Item Value Reference Range Interpretation Comments LDH (test code = LDH) 297 98-192 [facility]2022-06-28 11:17:00 Test Item Value Reference Range Interpretation Comments Procalcitonin Lvl (test 0.63 See_Comment [Au tomated message] code = Procalcitonin Lvl) Th e system which generated this result transmitted ref erence range: <=0.10. The reference range was not used to interpr et this result as normal/abnormal . [facility]jhjmyqCXMLUEQJDK6820-10-52 11:17:00 Test Item Value Reference Range Interpretation Comments D-Dimer (test code = D-Dimer) 5.33 [place] [address]-06-28 11:17:00 Test Item Value Reference Range Interpretation Comments Hep Bs Ag (test code Negative *NA*(11/25/21 = Hep Bs Ag) 6:17 AM) [place] 735922-06-28 11:17:00 Test Item Value Reference Range Interpretation Comments C-REACTIVE PROTEIN (test code = 134.0 C-REACTIVE PROTEIN) [place] 735922-06-28 11:17:00 Test Item Value Reference Range Interpretation Comments Interleukin 6 (test code = Interleukin 25.99 6) [facility]2022-06-28 11:17:00 Test Item Value Reference Range Interpretation Comments Vitamin B12 Lvl (test code = Vitamin 1508 B12 Lvl) [facility]2022-06-28 11:17:00 Test Item Value Reference Range Interpretation Comments Folate Lvl (test code = Folate Lvl) 22.3 [facility]2022-06-28 11:17:00 Test Item Value Reference Range Interpretation Comments Ferritin Lvl (test code = Ferritin Lvl) 1423 22-275 [place] 509392-06-28 11:17:00 Test Item Value Reference Range Interpretation Comments Glucose Lvl (test code = Glucose Lvl) 205 70-99 [facility]2022-06-28 11:17:00 Test Item Value Reference Range Interpretation Comments BUN (test code = BUN) 60 7-22 [place] 509392-06-28 11:17:00 Test Item Value Reference Range Interpretation Comments Creatinine Lvl (test code = Creatinine 8.46 0.50-1.40 Lvl) [place] 509392-06-28 11:17:00 Test Item Value Reference Range Interpretation Comments Sodium Lvl (test code = Sodium Lvl) 131 135-145 [place] 509392-06-28 11:17:00 Test Item Value Reference Range Interpretation Comments Potassium Lvl (test code = Potassium 5.2 3.5-5.1 Lvl) [facility]2022-06-28 11:17:00 Test Item Value Reference Range Interpretation Comments Chloride Lvl (test code = Chloride Lvl) 93 95-109 [place] 509392-06-28 11:17:00 Test Item Value Reference Range Interpretation Comments CO2 (test code = CO2) 29 24-32 [place] 509392-06-28 11:17:00 Test Item Value Reference Range Interpretation Comments Calcium Lvl (test code = Calcium Lvl) 8.7 8.5-10.5 [place] 509392-06-28 11:17:00 Test Item Value Reference Range Interpretation Comments Total Protein (test code = Total 6.0 6.4-8.4 Protein) [place] 509392-06-28 11:17:00 Test Item Value Reference Range Interpretation Comments Albumin Lvl (test code = Albumin Lvl) 2.6 3.5-5.0 [place] 509392-06-28 11:17:00 Test Item Value Reference Range Interpretation Comments ALT (test code = ALT) 43 See_Comment [Auto mated message] The system which ge nerated this result transmit swathi reference range : <=65. The reference range was not used to interpr et this result as deny l/abnormal. [facility]2022-06-28 11:17:00 Test Item Value Reference Range Interpretation Comments AST (test code = AST) 35 See_Comment [Auto mated message] The system which ge nerated this result transmit swathi reference range : <=37. The reference range was not used to interpr et this result as deny l/abnormal. [place] 509392-06-28 11:17:00 Test Item Value Reference Range Interpretation Comments Alk Phos (test code = Alk Phos) 385 39-136 [place] 509392-06-28 11:17:00 Test Item Value Reference Range Interpretation Comments Bili Total (test code = Bili Total) 1.2 0.2-1.3 [place] 509392-06-28 11:17:00 Test Item Value Reference Range Interpretation Comments AGAP (test code = AGAP) 14.2 10.0-20.0 [place] 509392-06-28 11:17:00 Test Item Value Reference Range Interpretation Comments B/C Ratio (test code = B/C Ratio) 7 1 6-25 [place] 509392-06-28 11:17:00 Test Item Value Reference Range Interpretation Comments Globulin (test code = Globulin) 3.4 2.7-4.2 [facility]2022-06-28 11:17:00 Test Item Value Reference Range Interpretation Comments A/G Ratio (test code = A/G Ratio) 0.8 1 0.7-1.6 [facility]2022-06-28 11:17:00 Test Item Value Reference Range Interpretation Comments eGFR (test code = eGFR) 6 [facility]2022-06-28 11:17:00 Test Item Value Reference Range Interpretation Comments Magnesium Lvl (test code = Magnesium 1.9 1.8-2.4 Lvl) [facility]2022-06-28 11:17:00 Test Item Value Reference Range Interpretation Comments LDH (test code = LDH) 297 98-192 [facility]2022-06-28 11:17:00 Test Item Value Reference Range Interpretation Comments Procalcitonin Lvl (test 0.63 See_Comment [Au tomated message] code = Procalcitonin Lvl) e system which generated this result transmitted ref erence range: <=0.10. The reference range was not used to interpr et this result as normal/abnormal . [facility]villePuxcwxnQMOEFGAAXC0154-69-80 11:17:00 Test Item Value Reference Range Interpretation Comments D-Dimer (test code = D-Dimer) 5.33 [facility] CenterJbfejlkASGVZJRBDY6056-31-04 11:17:00 Test Item Value Reference Range Interpretation Comments Hep Bs Ag (test code Negative *NA*(11/25/21 = Hep Bs Ag) 6:17 AM) [facility] CenterKyaltluPWOHJSKOCO9613-65-98 11:17:00 Test Item Value Reference Range Interpretation Comments C-REACTIVE PROTEIN (test code = 134.0 C-REACTIVE PROTEIN) [place] 735922-06-28 11:17:00 Test Item Value Reference Range Interpretation Comments Interleukin 6 (test code = Interleukin 25.99 6) [facility]2022-06-28 11:17:00 Test Item Value Reference Range Interpretation Comments Vitamin B12 Lvl (test code = Vitamin 1508 B12 Lvl) [facility]2022-06-28 11:17:00 Test Item Value Reference Range Interpretation Comments Folate Lvl (test code = Folate Lvl) 22.3 [facility]2022-06-28 11:17:00 Test Item Value Reference Range Interpretation Comments Ferritin Lvl (test code = Ferritin Lvl) 1423 46-275 [place] 509392-06-28 11:17:00 Test Item Value Reference Range Interpretation Comments Glucose Lvl (test code = Glucose Lvl) 205 70-99 [place] 509392-06-28 11:17:00 Test Item Value Reference Range Interpretation Comments BUN (test code = BUN) 60 7-22 [place] 509392-06-28 11:17:00 Test Item Value Reference Range Interpretation Comments Creatinine Lvl (test code = Creatinine 8.46 0.50-1.40 Lvl) [place] 509392-06-28 11:17:00 Test Item Value Reference Range Interpretation Comments Sodium Lvl (test code = Sodium Lvl) 131 135-145 [place] 509392-06-28 11:17:00 Test Item Value Reference Range Interpretation Comments Potassium Lvl (test code = Potassium 5.2 3.5-5.1 Lvl) [facility]2022-06-28 11:17:00 Test Item Value Reference Range Interpretation Comments Chloride Lvl (test code = Chloride Lvl) 93 95-109 [place] 509392-06-28 11:17:00 Test Item Value Reference Range Interpretation Comments CO2 (test code = CO2) 29 24-32 [place] 509392-06-28 11:17:00 Test Item Value Reference Range Interpretation Comments Calcium Lvl (test code = Calcium Lvl) 8.7 8.5-10.5 [place] 509392-06-28 11:17:00 Test Item Value Reference Range Interpretation Comments Total Protein (test code = Total 6.0 6.4-8.4 Protein) [place] 509392-06-28 11:17:00 Test Item Value Reference Range Interpretation Comments Albumin Lvl (test code = Albumin Lvl) 2.6 3.5-5.0 [place] 509392-06-28 11:17:00 Test Item Value Reference Range Interpretation Comments ALT (test code = ALT) 43 See_Comment [Auto mated message] The system which ge nerated this result transmit swathi reference range : <=65. The reference range was not used to interpr et this result as deny l/abnormal. [facility] [id number] 11:17:00 Test Item Value Reference Range Interpretation Comments AST (test code = AST) 35 See_Comment [Auto mated message] The system which ge nerated this result transmit swathi reference range : <=37. The reference range was not used to interpr et this result as deny l/abnormal. [place] 509392-06-28 11:17:00 Test Item Value Reference Range Interpretation Comments Alk Phos (test code = Alk Phos) 385 39-136 [facility] [id number] 11:17:00 Test Item Value Reference Range Interpretation Comments Bili Total (test code = Bili Total) 1.2 0.2-1.3 [place] 509392-06-28 11:17:00 Test Item Value Reference Range Interpretation Comments AGAP (test code = AGAP) 14.2 10.0-20.0 [facility] HospitalFlynnLANCE [facility] [id number] 11:17:00 Test Item Value Reference Range Interpretation Comments B/C Ratio (test code = B/C Ratio) 7 1 6-25 [place] 509392-06-28 11:17:00 Test Item Value Reference Range Interpretation Comments Globulin (test code = Globulin) 3.4 2.7-4.2 [place] 509392-06-28 11:17:00 Test Item Value Reference Range Interpretation Comments A/G Ratio (test code = A/G Ratio) 0.8 1 0.7-1.6 [place] 509392-06-28 11:17:00 Test Item Value Reference Range Interpretation Comments eGFR (test code = eGFR) 6 [place] 509392-06-28 11:17:00 Test Item Value Reference Range Interpretation Comments Magnesium Lvl (test code = Magnesium 1.9 1.8-2.4 Lvl) [place] 509392-06-28 11:17:00 Test Item Value Reference Range Interpretation Comments LDH (test code = LDH) 297 98-192 [facility] [id number] 11:17:00 Test Item Value Reference Range Interpretation Comments Procalcitonin Lvl (test 0.63 See_Comment [Au tomated message] code = Procalcitonin Lvl) Th e system which generated this result transmitted ref erence range: <=0.10. The reference range was not used to interpr et this result as normal/abnormal . [facility]villeNjrhqqiWWRCOJZEED7561-71-69 11:17:00 Test Item Value Reference Range Interpretation Comments D-Dimer (test code = D-Dimer) 5.33 [place] 735922-06-28 11:17:00 Test Item Value Reference Range Interpretation Comments Hep Bs Ag (test code Negative *NA*(11/25/21 = Hep Bs Ag) 6:17 AM) [place] 735922-06-28 11:17:00 Test Item Value Reference Range Interpretation Comments C-REACTIVE PROTEIN (test code = 134.0 C-REACTIVE PROTEIN) [place] 735922-06-28 11:17:00 Test Item Value Reference Range Interpretation Comments Interleukin 6 (test code = Interleukin 25.99 6) [facility]2022-06-28 11:17:00 Test Item Value Reference Range Interpretation Comments Vitamin B12 Lvl (test code = Vitamin 1508 B12 Lvl) [facility]2022-06-28 11:17:00 Test Item Value Reference Range Interpretation Comments Folate Lvl (test code = Folate Lvl) 22.3 [facility]2022-06-28 11:17:00 Test Item Value Reference Range Interpretation Comments Ferritin Lvl (test code = Ferritin Lvl) 1423 22-275 [facility]2022-06-28 11:17:00 Test Item Value Reference Range Interpretation Comments Glucose Lvl (test code = Glucose Lvl) 205 70-99 [facility]2022-06-28 11:17:00 Test Item Value Reference Range Interpretation Comments BUN (test code = BUN) 60 7-22 [facility]2022-06-28 11:17:00 Test Item Value Reference Range Interpretation Comments Creatinine Lvl (test code = Creatinine 8.46 0.50-1.40 Lvl) [facility]2022-06-28 11:17:00 Test Item Value Reference Range Interpretation Comments Sodium Lvl (test code = Sodium Lvl) 131 135-145 [place] 509392-06-28 11:17:00 Test Item Value Reference Range Interpretation Comments Potassium Lvl (test code = Potassium 5.2 3.5-5.1 Lvl) [facility]2022-06-28 11:17:00 Test Item Value Reference Range Interpretation Comments Chloride Lvl (test code = Chloride Lvl) 93 95-109 [place] 509392-06-28 11:17:00 Test Item Value Reference Range Interpretation Comments CO2 (test code = CO2) 29 24-32 [place] 509392-06-28 11:17:00 Test Item Value Reference Range Interpretation Comments Calcium Lvl (test code = Calcium Lvl) 8.7 8.5-10.5 [place] 509392-06-28 11:17:00 Test Item Value Reference Range Interpretation Comments Total Protein (test code = Total 6.0 6.4-8.4 Protein) [place] 509392-06-28 11:17:00 Test Item Value Reference Range Interpretation Comments Albumin Lvl (test code = Albumin Lvl) 2.6 3.5-5.0 [place] 509392-06-28 11:17:00 Test Item Value Reference Range Interpretation Comments ALT (test code = ALT) 43 See_Comment [Auto mated message] The system which ge nerated this result transmit swathi reference range : <=65. The reference range was not used to interpr et this result as deny l/abnormal. [facility]2022-06-28 11:17:00 Test Item Value Reference Range Interpretation Comments AST (test code = AST) 35 See_Comment [Auto mated message] The system which ge nerated this result transmit swathi reference range : <=37. The reference range was not used to interpr et this result as deny l/abnormal. [facility]2022-06-28 11:17:00 Test Item Value Reference Range Interpretation Comments Alk Phos (test code = Alk Phos) 385 39-136 [place] 509392-06-28 11:17:00 Test Item Value Reference Range Interpretation Comments Bili Total (test code = Bili Total) 1.2 0.2-1.3 [place] 509392-06-28 11:17:00 Test Item Value Reference Range Interpretation Comments AGAP (test code = AGAP) 14.2 10.0-20.0 [place] 509392-06-28 11:17:00 Test Item Value Reference Range Interpretation Comments B/C Ratio (test code = B/C Ratio) 7 1 6-25 [facility]2022-06-28 11:17:00 Test Item Value Reference Range Interpretation Comments Globulin (test code = Globulin) 3.4 2.7-4.2 [facility]2022-06-28 11:17:00 Test Item Value Reference Range Interpretation Comments A/G Ratio (test code = A/G Ratio) 0.8 1 0.7-1.6 [facility]2022-06-28 11:17:00 Test Item Value Reference Range Interpretation Comments eGFR (test code = eGFR) 6 [facility]2022-06-28 11:17:00 Test Item Value Reference Range Interpretation Comments Magnesium Lvl (test code = Magnesium 1.9 1.8-2.4 Lvl) [facility]2022-06-28 11:17:00 Test Item Value Reference Range Interpretation Comments LDH (test code = LDH) 297 98-192 [facility]2022-06-28 11:17:00 Test Item Value Reference Range Interpretation Comments Procalcitonin Lvl (test 0.63 See_Comment [Au tomated message] code = Procalcitonin Lvl) Th e system which generated this result transmitted ref erence range: <=0.10. The reference range was not used to interpr et this result as normal/abnormal . [facility]villeAgvojtmVJOSVZCRHC3104-76-28 11:17:00 Test Item Value Reference Range Interpretation Comments D-Dimer (test code = D-Dimer) 5.33 [facility] CenterVafywhvSLXDWGBATB0701-99-37 11:17:00 Test Item Value Reference Range Interpretation Comments Hep Bs Ag (test code Negative *NA*(11/25/21 = Hep Bs Ag) 6:17 AM) [facility] CenterOrasbjmJNFTZFJAWT1084-64-88 11:17:00 Test Item Value Reference Range Interpretation Comments C-REACTIVE PROTEIN (test code = 134.0 C-REACTIVE PROTEIN) [facility] ClubNmsfcqxNFCNYAPMZW2234-57-69 11:17:00 Test Item Value Reference Range Interpretation Comments Interleukin 6 (test code = Interleukin 25.99 6) [facility]2022-06-28 11:17:00 Test Item Value Reference Range Interpretation Comments Vitamin B12 Lvl (test code = Vitamin 1508 B12 Lvl) [facility]2022-06-28 11:17:00 Test Item Value Reference Range Interpretation Comments Folate Lvl (test code = Folate Lvl) 22.3 [facility]2022-06-28 11:17:00 Test Item Value Reference Range Interpretation Comments Ferritin Lvl (test code = Ferritin Lvl) 1423 22-275 [place] 509392-06-28 11:17:00 Test Item Value Reference Range Interpretation Comments Glucose Lvl (test code = Glucose Lvl) 205 70-99 [place] 509392-06-28 11:17:00 Test Item Value Reference Range Interpretation Comments BUN (test code = BUN) 60 7-22 [place] 509392-06-28 11:17:00 Test Item Value Reference Range Interpretation Comments Creatinine Lvl (test code = Creatinine 8.46 0.50-1.40 Lvl) [place] 509392-06-28 11:17:00 Test Item Value Reference Range Interpretation Comments Sodium Lvl (test code = Sodium Lvl) 131 135-145 [place] 509392-06-28 11:17:00 Test Item Value Reference Range Interpretation Comments Potassium Lvl (test code = Potassium 5.2 3.5-5.1 Lvl) [facility]2022-06-28 11:17:00 Test Item Value Reference Range Interpretation Comments Chloride Lvl (test code = Chloride Lvl) 93 95-109 [place] 509392-06-28 11:17:00 Test Item Value Reference Range Interpretation Comments CO2 (test code = CO2) 29 24-32 [place] 509392-06-28 11:17:00 Test Item Value Reference Range Interpretation Comments Calcium Lvl (test code = Calcium Lvl) 8.7 8.5-10.5 [place] 509392-06-28 11:17:00 Test Item Value Reference Range Interpretation Comments Total Protein (test code = Total 6.0 6.4-8.4 Protein) [place] 509392-06-28 11:17:00 Test Item Value Reference Range Interpretation Comments Albumin Lvl (test code = Albumin Lvl) 2.6 3.5-5.0 [place] 509392-06-28 11:17:00 Test Item Value Reference Range Interpretation Comments ALT (test code = ALT) 43 See_Comment [Auto mated message] The system which ge nerated this result transmit swathi reference range : <=65. The reference range was not used to interpr et this result as deny l/abnormal. [facility] [employer] [id number] 11:17:00 Test Item Value Reference Range Interpretation Comments AST (test code = AST) 35 See_Comment [Auto mated message] The system which ge nerated this result transmit swathi reference range : <=37. The reference range was not used to interpr et this result as deny l/abnormal. [facility] [employer] [id number] 11:17:00 Test Item Value Reference Range Interpretation Comments Alk Phos (test code = Alk Phos) 385 39-[address] [facility] [employer] [id number] 11:17:00 Test Item Value Reference Range Interpretation Comments Bili Total (test code = Bili Total) 1.2 0.2-1.[address] [facility] [employer] [id number] 11:17:00 Test Item Value Reference Range Interpretation Comments AGAP (test code = AGAP) 14.2 10.0-20.[address] [facility] [employer] [id number] 11:17:00 Test Item Value Reference Range Interpretation Comments B/C Ratio (test code = B/C Ratio) 7 1 6-25 [facility] [id number] 11:17:00 Test Item Value Reference Range Interpretation Comments Globulin (test code = Globulin) 3.4 2.7-4.[address] [facility] [employer] [id number] 11:17:00 Test Item Value Reference Range Interpretation Comments A/G Ratio (test code = A/G Ratio) 0.8 1 0.7-1.[address] [facility] [employer] [id number] 11:17:00 Test Item Value Reference Range Interpretation Comments eGFR (test code = eGFR) [address] [facility] [employer] [id number] 11:17:00 Test Item Value Reference Range Interpretation Comments Magnesium Lvl (test code = Magnesium 1.9 1.8-2.4 Lvl) [facility] [employer] [id number] 11:17:00 Test Item Value Reference Range Interpretation Comments LDH (test code = LDH) 297 98-192 [facility] CenterPlay[facility] Energy [id number] 11:17:00 Test Item Value Reference Range Interpretation Comments Procalcitonin Lvl (test 0.63 See_Comment [Au tomated message] code = Procalcitonin Lvl) e system which generated this result transmitted ref erence range: <=0.10. The reference range was not used to interpr et this result as normal/abnormal . [facility]villeUymshsjMGWHTPBWWO0063-32-98 11:17:00 Test Item Value Reference Range Interpretation Comments D-Dimer (test code = D-Dimer) 5.33 [facility] CenterJfyxzmdZBVXVVGQDW8212-64-22 11:17:00 Test Item Value Reference Range Interpretation Comments Hep Bs Ag (test code Negative *NA*(11/25/21 = Hep Bs Ag) 6:17 AM) [facility] ClubCvhtiyaLYXRTQGFWA4464-35-19 11:17:00 Test Item Value Reference Range Interpretation Comments C-REACTIVE PROTEIN (test code = 134.0 C-REACTIVE PROTEIN) [facility] ClubUdbnnzwGUOEEVKNBV4333-95-51 11:17:00 Test Item Value Reference Range Interpretation Comments Interleukin 6 (test code = Interleukin 25.99 6) [facility]2022-06-28 11:17:00 Test Item Value Reference Range Interpretation Comments Vitamin B12 Lvl (test code = Vitamin 1508 B12 Lvl) [facility]2022-06-28 11:17:00 Test Item Value Reference Range Interpretation Comments Folate Lvl (test code = Folate Lvl) 22.3 [facility]2022-06-28 11:17:00 Test Item Value Reference Range Interpretation Comments Ferritin Lvl (test code = Ferritin Lvl) 1423 22-275 [facility]2022-06-28 11:17:00 Test Item Value Reference Range Interpretation Comments Glucose Lvl (test code = Glucose Lvl) 205 70-99 [facility]2022-06-28 11:17:00 Test Item Value Reference Range Interpretation Comments BUN (test code = BUN) 60 7-22 [facility]2022-06-28 11:17:00 Test Item Value Reference Range Interpretation Comments Creatinine Lvl (test code = Creatinine 8.46 0.50-1.40 Lvl) [facility]2022-06-28 11:17:00 Test Item Value Reference Range Interpretation Comments Sodium Lvl (test code = Sodium Lvl) 131 135-145 [facility]2022-06-28 11:17:00 Test Item Value Reference Range Interpretation Comments Potassium Lvl (test code = Potassium 5.2 3.5-5.1 Lvl) [facility]2022-06-28 11:17:00 Test Item Value Reference Range Interpretation Comments Chloride Lvl (test code = Chloride Lvl) 93 95-109 [facility]2022-06-28 11:17:00 Test Item Value Reference Range Interpretation Comments CO2 (test code = CO2) 29 24-32 [facility]2022-06-28 11:17:00 Test Item Value Reference Range Interpretation Comments Calcium Lvl (test code = Calcium Lvl) 8.7 8.5-10.5 [facility]2022-06-28 11:17:00 Test Item Value Reference Range Interpretation Comments Total Protein (test code = Total 6.0 6.4-8.4 Protein) [facility]2022-06-28 11:17:00 Test Item Value Reference Range Interpretation Comments Albumin Lvl (test code = Albumin Lvl) 2.6 3.5-5.0 [facility]2022-06-28 11:17:00 Test Item Value Reference Range Interpretation Comments ALT (test code = ALT) 43 See_Comment [Auto mated message] The system which ge nerated this result transmit swathi reference range : <=65. The reference range was not used to interpr et this result as deny l/abnormal. [facility] [id number] 11:17:00 Test Item Value Reference Range Interpretation Comments AST (test code = AST) 35 See_Comment [Auto mated message] The system which ge nerated this result transmit sawthi reference range : <=37. The reference range was not used to interpr et this result as deny l/abnormal. [facility]2022-06-28 11:17:00 Test Item Value Reference Range Interpretation Comments Alk Phos (test code = Alk Phos) 385 39-136 [facility]2022-06-28 11:17:00 Test Item Value Reference Range Interpretation Comments Bili Total (test code = Bili Total) 1.2 0.2-1.3 [facility]2022-06-28 11:17:00 Test Item Value Reference Range Interpretation Comments AGAP (test code = AGAP) 14.2 10.0-20.0 [facility]2022-06-28 11:17:00 Test Item Value Reference Range Interpretation Comments B/C Ratio (test code = B/C Ratio) 7 1 6-25 [place] 509392-06-28 11:17:00 Test Item Value Reference Range Interpretation Comments Globulin (test code = Globulin) 3.4 2.7-4.2 [facility]2022-06-28 11:17:00 Test Item Value Reference Range Interpretation Comments A/G Ratio (test code = A/G Ratio) 0.8 1 0.7-1.6 [place] 509392-06-28 11:17:00 Test Item Value Reference Range Interpretation Comments eGFR (test code = eGFR) 6 [facility]2022-06-28 11:17:00 Test Item Value Reference Range Interpretation Comments Magnesium Lvl (test code = Magnesium 1.9 1.8-2.4 Lvl) [facility]2022-06-28 11:17:00 Test Item Value Reference Range Interpretation Comments LDH (test code = LDH) 297 98-192 [facility]2022-06-28 11:17:00 Test Item Value Reference Range Interpretation Comments Procalcitonin Lvl (test 0.63 See_Comment [Au tomated message] code = Procalcitonin Lvl) Th e system which generated this result transmitted ref erence range: <=0.10. The reference range was not used to interpr et this result as normal/abnormal . [facility]villeRjatpgqZAJMMZWWAK7730-76-40 11:17:00 Test Item Value Reference Range Interpretation Comments D-Dimer (test code = D-Dimer) 5.33 [facility] CenterVahytqiXGNMKHQPTZ3914-90-52 11:17:00 Test Item Value Reference Range Interpretation Comments Hep Bs Ag (test code Negative *NA*(11/25/21 = Hep Bs Ag) 6:17 AM) [facility] ClubDwmktmfSSXVRVUYDB2533-58-57 11:17:00 Test Item Value Reference Range Interpretation Comments C-REACTIVE PROTEIN (test code = 134.0 C-REACTIVE PROTEIN) [place] 735922-06-28 11:17:00 Test Item Value Reference Range Interpretation Comments Interleukin 6 (test code = Interleukin 25.99 6) [facility]2022-06-28 11:17:00 Test Item Value Reference Range Interpretation Comments Vitamin B12 Lvl (test code = Vitamin 1508 B12 Lvl) [facility]2022-06-28 11:17:00 Test Item Value Reference Range Interpretation Comments Folate Lvl (test code = Folate Lvl) 22.3 [facility]2022-06-28 11:17:00 Test Item Value Reference Range Interpretation Comments Ferritin Lvl (test code = Ferritin Lvl) 1423 22-275 [facility]2022-06-28 11:17:00 Test Item Value Reference Range Interpretation Comments Glucose Lvl (test code = Glucose Lvl) 205 70-99 [facility]2022-06-28 11:17:00 Test Item Value Reference Range Interpretation Comments BUN (test code = BUN) 60 7-22 [facility]2022-06-28 11:17:00 Test Item Value Reference Range Interpretation Comments Creatinine Lvl (test code = Creatinine 8.46 0.50-1.40 Lvl) [facility]2022-06-28 11:17:00 Test Item Value Reference Range Interpretation Comments Sodium Lvl (test code = Sodium Lvl) 131 135-145 [facility]2022-06-28 11:17:00 Test Item Value Reference Range Interpretation Comments Potassium Lvl (test code = Potassium 5.2 3.5-5.1 Lvl) [facility]2022-06-28 11:17:00 Test Item Value Reference Range Interpretation Comments Chloride Lvl (test code = Chloride Lvl) 93 95-109 [facility]2022-06-28 11:17:00 Test Item Value Reference Range Interpretation Comments CO2 (test code = CO2) 29 24-32 [facility]2022-06-28 11:17:00 Test Item Value Reference Range Interpretation Comments Calcium Lvl (test code = Calcium Lvl) 8.7 8.5-10.5 [facility]2022-06-28 11:17:00 Test Item Value Reference Range Interpretation Comments Total Protein (test code = Total 6.0 6.4-8.4 Protein) [place] 509392-06-28 11:17:00 Test Item Value Reference Range Interpretation Comments Albumin Lvl (test code = Albumin Lvl) 2.6 3.5-5.0 [place] 509392-06-28 11:17:00 Test Item Value Reference Range Interpretation Comments ALT (test code = ALT) 43 See_Comment [Auto mated message] The system which ge nerated this result transmit swathi reference range : <=65. The reference range was not used to interpr et this result as deny l/abnormal. [facility] [id number] 11:17:00 Test Item Value Reference Range Interpretation Comments AST (test code = AST) 35 See_Comment [Auto mated message] The system which ge nerated this result transmit swathi reference range : <=37. The reference range was not used to interpr et this result as deny l/abnormal. [facility] [id number] 11:17:00 Test Item Value Reference Range Interpretation Comments Alk Phos (test code = Alk Phos) 385 39-136 [facility] [id number] 11:17:00 Test Item Value Reference Range Interpretation Comments Bili Total (test code = Bili Total) 1.2 0.2-1.3 [facility] [id number] 11:17:00 Test Item Value Reference Range Interpretation Comments AGAP (test code = AGAP) 14.2 10.0-20.0 [facility] [id number] 11:17:00 Test Item Value Reference Range Interpretation Comments B/C Ratio (test code = B/C Ratio) 7 1 6-25 [facility] [id number] 11:17:00 Test Item Value Reference Range Interpretation Comments Globulin (test code = Globulin) 3.4 2.7-4.2 [facility] [id number] 11:17:00 Test Item Value Reference Range Interpretation Comments A/G Ratio (test code = A/G Ratio) 0.8 1 0.7-1.6 [place] 509392-06-28 11:17:00 Test Item Value Reference Range Interpretation Comments eGFR (test code = eGFR) 6 [facility] [id number] 11:17:00 Test Item Value Reference Range Interpretation Comments Magnesium Lvl (test code = Magnesium 1.9 1.8-2.4 Lvl) [facility]2022-06-28 11:17:00 Test Item Value Reference Range Interpretation Comments LDH (test code = LDH) 297 98-192 [facility]2022-06-28 11:17:00 Test Item Value Reference Range Interpretation Comments Vitamin B12 Lvl (test code = Vitamin 1508 B12 Lvl) [facility]2022-06-28 11:17:00 Test Item Value Reference Range Interpretation Comments Folate Lvl (test code = Folate Lvl) 22.3 [facility]2022-06-28 11:17:00 Test Item Value Reference Range Interpretation Comments Ferritin Lvl (test code = Ferritin Lvl) 1423 22275 [place] 509392-06-28 11:17:00 Test Item Value Reference Range Interpretation Comments Procalcitonin Lvl (test 0.63 See_Comment [Au tomated message] code = Procalcitonin Lvl) e system which generated this result transmitted ref erence range: <=0.10. The reference range was not used to interpr et this result as normal/abnormal . [facility]2022-06-28 11:17:00 Test Item Value Reference Range Interpretation Comments Glucose Lvl (test code = Glucose Lvl) 205 70-99 [facility]2022-06-28 11:17:00 Test Item Value Reference Range Interpretation Comments BUN (test code = BUN) 60 7-22 [facility]2022-06-28 11:17:00 Test Item Value Reference Range Interpretation Comments Creatinine Lvl (test code = Creatinine 8.46 0.50-1.40 Lvl) [place] 509392-06-28 11:17:00 Test Item Value Reference Range Interpretation Comments Sodium Lvl (test code = Sodium Lvl) 131 135-145 [place] 509392-06-28 11:17:00 Test Item Value Reference Range Interpretation Comments Potassium Lvl (test code = Potassium 5.2 3.5-5.1 Lvl) [facility]2022-06-28 11:17:00 Test Item Value Reference Range Interpretation Comments Chloride Lvl (test code = Chloride Lvl) 93 95-109 [place] 509392-06-28 11:17:00 Test Item Value Reference Range Interpretation Comments CO2 (test code = CO2) 29 24-32 [place] 509392-06-28 11:17:00 Test Item Value Reference Range Interpretation Comments Calcium Lvl (test code = Calcium Lvl) 8.7 8.5-10.5 [facility]2022-06-28 11:17:00 Test Item Value Reference Range Interpretation Comments Total Protein (test code = Total 6.0 6.4-8.4 Protein) [facility]2022-06-28 11:17:00 Test Item Value Reference Range Interpretation Comments Albumin Lvl (test code = Albumin Lvl) 2.6 3.5-5.0 [facility] GreenvilleBqrxcgsSPEMOMMZON6162-78-98 11:17:00 Test Item Value Reference Range Interpretation Comments D-Dimer (test code = D-Dimer) 5.33 [facility]2022-06-28 11:17:00 Test Item Value Reference Range Interpretation Comments ALT (test code = ALT) 43 See_Comment [Auto mated message] The system which ge nerated this result transmit swathi reference range : <=65. The reference range was not used to interpr et this result as deny l/abnormal. [facility]2022-06-28 11:17:00 Test Item Value Reference Range Interpretation Comments AST (test code = AST) 35 See_Comment [Auto mated message] The system which ge nerated this result transmit swathi reference range : <=37. The reference range was not used to interpr et this result as deny l/abnormal. [facility]2022-06-28 11:17:00 Test Item Value Reference Range Interpretation Comments Alk Phos (test code = Alk Phos) 385 39-136 [place] 509392-06-28 11:17:00 Test Item Value Reference Range Interpretation Comments Bili Total (test code = Bili Total) 1.2 0.2-1.3 [place] 509392-06-28 11:17:00 Test Item Value Reference Range Interpretation Comments AGAP (test code = AGAP) 14.2 10.0-20.0 [place] 509392-06-28 11:17:00 Test Item Value Reference Range Interpretation Comments B/C Ratio (test code = B/C Ratio) 7 1 6-25 [facility]2022-06-28 11:17:00 Test Item Value Reference Range Interpretation Comments Globulin (test code = Globulin) 3.4 2.7-4.2 [facility]2022-06-28 11:17:00 Test Item Value Reference Range Interpretation Comments A/G Ratio (test code = A/G Ratio) 0.8 1 0.7-1.6 [facility]2022-06-28 11:17:00 Test Item Value Reference Range Interpretation Comments eGFR (test code = eGFR) 6 [facility]2022-06-28 11:17:00 Test Item Value Reference Range Interpretation Comments Magnesium Lvl (test code = Magnesium 1.9 1.8-2.4 Lvl) [facility] [id number] 11:17:00 Test Item Value Reference Range Interpretation Comments Hep Bs Ag (test code Negative *NA*(11/25/21 = Hep Bs Ag) 6:17 AM) [facility]2022-06-28 11:17:00 Test Item Value Reference Range Interpretation Comments LDH (test code = LDH) 297 98-192 [facility]2022-06-28 11:17:00 Test Item Value Reference Range Interpretation Comments Procalcitonin Lvl (test 0.63 See_Comment [Au tomated message] code = Procalcitonin Lvl) Th e system which generated this result transmitted ref erence range: <=0.10. The reference range was not used to interpr et this result as normal/abnormal . [facility] GreenvilleCygazwvKAKHJTYBYS5965-43-57 11:17:00 Test Item Value Reference Range Interpretation Comments D-Dimer (test code = D-Dimer) 5.33 [place] 735922-06-28 11:17:00 Test Item Value Reference Range Interpretation Comments Hep Bs Ag (test code Negative *NA*(11/25/21 = Hep Bs Ag) 6:17 AM) [facility] [id number] 11:17:00 Test Item Value Reference Range Interpretation Comments C-REACTIVE PROTEIN (test code = 134.0 C-REACTIVE PROTEIN) [place] 735922-06-28 11:17:00 Test Item Value Reference Range Interpretation Comments Interleukin 6 (test code = Interleukin 25.99 6) [place] 735922-06-28 11:17:00 Test Item Value Reference Range Interpretation Comments C-REACTIVE PROTEIN (test code = 134.0 C-REACTIVE PROTEIN) [place] 735922-06-28 11:17:00 Test Item Value Reference Range Interpretation Comments Interleukin 6 (test code = Interleukin 25.99 6) [facility]2022-06-28 11:17:00 Test Item Value Reference Range Interpretation Comments Vitamin B12 Lvl (test code = Vitamin 1508 B12 Lvl) [facility]2022-06-28 11:17:00 Test Item Value Reference Range Interpretation Comments Folate Lvl (test code = Folate Lvl) 22.3 [place] 266142-06-28 11:17:00 Test Item Value Reference Range Interpretation Comments Ferritin Lvl (test code = Ferritin Lvl) 1423 36-275 [place] 509392-06-28 11:17:00 Test Item Value Reference Range Interpretation Comments Glucose Lvl (test code = Glucose Lvl) 205 70-99 [facility]2022-06-28 11:17:00 Test Item Value Reference Range Interpretation Comments BUN (test code = BUN) 60 7-22 [place] 509392-06-28 11:17:00 Test Item Value Reference Range Interpretation Comments Creatinine Lvl (test code = Creatinine 8.46 0.50-1.40 Lvl) [place] 509392-06-28 11:17:00 Test Item Value Reference Range Interpretation Comments Sodium Lvl (test code = Sodium Lvl) 131 135-145 [place] 509392-06-28 11:17:00 Test Item Value Reference Range Interpretation Comments Potassium Lvl (test code = Potassium 5.2 3.5-5.1 Lvl) [place] 509392-06-28 11:17:00 Test Item Value Reference Range Interpretation Comments Chloride Lvl (test code = Chloride Lvl) 93 95-109 [place] 509392-06-28 11:17:00 Test Item Value Reference Range Interpretation Comments CO2 (test code = CO2) 29 24-32 [place] 509392-06-28 11:17:00 Test Item Value Reference Range Interpretation Comments Calcium Lvl (test code = Calcium Lvl) 8.7 8.5-10.5 [facility]2022-06-28 11:17:00 Test Item Value Reference Range Interpretation Comments Total Protein (test code = Total 6.0 6.4-8.4 Protein) [facility]2022-06-28 11:17:00 Test Item Value Reference Range Interpretation Comments Albumin Lvl (test code = Albumin Lvl) 2.6 3.5-5.0 [facility]2022-06-28 11:17:00 Test Item Value Reference Range Interpretation Comments ALT (test code = ALT) 43 See_Comment [Auto mated message] The system which ge nerated this result transmit swathi reference range : <=65. The reference range was not used to interpr et this result as deny l/abnormal. [facility]2022-06-28 11:17:00 Test Item Value Reference Range Interpretation Comments AST (test code = AST) 35 See_Comment [Auto mated message] The system which ge nerated this result transmit swathi reference range : <=37. The reference range was not used to interpr et this result as deny l/abnormal. [facility]2022-06-28 11:17:00 Test Item Value Reference Range Interpretation Comments Alk Phos (test code = Alk Phos) 385 39-136 [facility]2022-06-28 11:17:00 Test Item Value Reference Range Interpretation Comments Bili Total (test code = Bili Total) 1.2 0.2-1.3 [place] 509392-06-28 11:17:00 Test Item Value Reference Range Interpretation Comments AGAP (test code = AGAP) 14.2 10.0-20.0 [facility]2022-06-28 11:17:00 Test Item Value Reference Range Interpretation Comments B/C Ratio (test code = B/C Ratio) 7 1 6-25 [facility]Play[facility] [id number] 11:17:00 Test Item Value Reference Range Interpretation Comments Globulin (test code = Globulin) 3.4 2.7-4.2 [facility]Play[facility] [id number] 11:17:00 Test Item Value Reference Range Interpretation Comments A/G Ratio (test code = A/G Ratio) 0.8 1 0.7-1.6 [facility]2022-06-28 11:17:00 Test Item Value Reference Range Interpretation Comments eGFR (test code = eGFR) 6 [facility]2022-06-28 11:17:00 Test Item Value Reference Range Interpretation Comments Magnesium Lvl (test code = Magnesium 1.9 1.8-2.4 Lvl) [facility]2022-06-28 11:17:00 Test Item Value Reference Range Interpretation Comments LDH (test code = LDH) 297 98-192 [facility]2022-06-28 11:17:00 Test Item Value Reference Range Interpretation Comments Procalcitonin Lvl (test 0.63 See_Comment [Au tomated message] code = Procalcitonin Lvl) e system which generated this result transmitted ref erence range: <=0.10. The reference range was not used to interpr et this result as normal/abnormal . [facility] GreenvilleMftdjsgAHNVUVVNTT9053-53-11 11:17:00 Test Item Value Reference Range Interpretation Comments D-Dimer (test code = D-Dimer) 5.33 [facility] CenterAbsalbnCNHBRJTTQJ4448-18-93 11:17:00 Test Item Value Reference Range Interpretation Comments Hep Bs Ag (test code Negative *NA*(11/25/21 = Hep Bs Ag) 6:17 AM) [place] 735922-06-28 11:17:00 Test Item Value Reference Range Interpretation Comments C-REACTIVE PROTEIN (test code = 134.0 C-REACTIVE PROTEIN) [facility] ClubUrdsyvpGIZLKDPGNN0430-50-74 11:17:00 Test Item Value Reference Range Interpretation Comments Interleukin 6 (test code = Interleukin 25.99 6) [facility]2022-06-28 11:17:00 Test Item Value Reference Range Interpretation Comments Vitamin B12 Lvl (test code = Vitamin 1508 B12 Lvl) [facility]2022-06-28 11:17:00 Test Item Value Reference Range Interpretation Comments Folate Lvl (test code = Folate Lvl) 22.3 [facility]2022-06-28 11:17:00 Test Item Value Reference Range Interpretation Comments Ferritin Lvl (test code = Ferritin Lvl) 1422 22-202 [facility]2022-06-28 11:17:00 Test Item Value Reference Range Interpretation Comments Glucose Lvl (test code = Glucose Lvl) 205 70-99 [place] 509392-06-28 11:17:00 Test Item Value Reference Range Interpretation Comments BUN (test code = BUN) 60 7-22 [place] 509392-06-28 11:17:00 Test Item Value Reference Range Interpretation Comments Creatinine Lvl (test code = Creatinine 8.46 0.50-1.40 Lvl) [place] 509392-06-28 11:17:00 Test Item Value Reference Range Interpretation Comments Sodium Lvl (test code = Sodium Lvl) 131 135-145 [place] 509392-06-28 11:17:00 Test Item Value Reference Range Interpretation Comments Potassium Lvl (test code = Potassium 5.2 3.5-5.1 Lvl) [place] 509392-06-28 11:17:00 Test Item Value Reference Range Interpretation Comments Chloride Lvl (test code = Chloride Lvl) 93 95-109 [place] 509392-06-28 11:17:00 Test Item Value Reference Range Interpretation Comments CO2 (test code = CO2) 29 24-32 [place] 509392-06-28 11:17:00 Test Item Value Reference Range Interpretation Comments Calcium Lvl (test code = Calcium Lvl) 8.7 8.5-10.5 [place] 509392-06-28 11:17:00 Test Item Value Reference Range Interpretation Comments Total Protein (test code = Total 6.0 6.4-8.4 Protein) [place] 509392-06-28 11:17:00 Test Item Value Reference Range Interpretation Comments Albumin Lvl (test code = Albumin Lvl) 2.6 3.5-5.0 [place] 509392-06-28 11:17:00 Test Item Value Reference Range Interpretation Comments ALT (test code = ALT) 43 See_Comment [Auto mated message] The system which ge nerated this result transmit swathi reference range : <=65. The reference range was not used to interpr et this result as deny l/abnormal. [place] 509392-06-28 11:17:00 Test Item Value Reference Range Interpretation Comments AST (test code = AST) 35 See_Comment [Auto mated message] The system which ge nerated this result transmit swathi reference range : <=37. The reference range was not used to interpr et this result as deny l/abnormal. [facility]2022-06-28 11:17:00 Test Item Value Reference Range Interpretation Comments Alk Phos (test code = Alk Phos) 385 39-136 [facility]2022-06-28 11:17:00 Test Item Value Reference Range Interpretation Comments Bili Total (test code = Bili Total) 1.2 0.2-1.3 [place] 509392-06-28 11:17:00 Test Item Value Reference Range Interpretation Comments AGAP (test code = AGAP) 14.2 10.0-20.0 [facility] HospitalFlynnLANCE [facility] [id number] 11:17:00 Test Item Value Reference Range Interpretation Comments B/C Ratio (test code = B/C Ratio) 7 1 6-25 [facility]2022-06-28 11:17:00 Test Item Value Reference Range Interpretation Comments Globulin (test code = Globulin) 3.4 2.7-4.2 [facility]2022-06-28 11:17:00 Test Item Value Reference Range Interpretation Comments A/G Ratio (test code = A/G Ratio) 0.8 1 0.7-1.6 [facility]2022-06-28 11:17:00 Test Item Value Reference Range Interpretation Comments eGFR (test code = eGFR) 6 [facility]2022-06-28 11:17:00 Test Item Value Reference Range Interpretation Comments Magnesium Lvl (test code = Magnesium 1.9 1.8-2.4 Lvl) [facility]2022-06-28 11:17:00 Test Item Value Reference Range Interpretation Comments LDH (test code = LDH) 297 98-192 [facility]2022-06-28 11:17:00 Test Item Value Reference Range Interpretation Comments Procalcitonin Lvl (test 0.63 See_Comment [Au tomated message] code = Procalcitonin Lvl) Th e system which generated this result transmitted ref erence range: <=0.10. The reference range was not used to interpr et this result as normal/abnormal . [facility] GreenvilleGvfkygsNZAFMFUIZO6962-08-82 11:17:00 Test Item Value Reference Range Interpretation Comments D-Dimer (test code = D-Dimer) 5.33 [place] 735922-06-28 11:17:00 Test Item Value Reference Range Interpretation Comments Hep Bs Ag (test code Negative *NA*(11/25/21 = Hep Bs Ag) 6:17 AM) [place] 735922-06-28 11:17:00 Test Item Value Reference Range Interpretation Comments C-REACTIVE PROTEIN (test code = 134.0 C-REACTIVE PROTEIN) [place] 735922-06-28 11:17:00 Test Item Value Reference Range Interpretation Comments Interleukin 6 (test code = Interleukin 25.99 6) [facility]2022-06-28 11:17:00 Test Item Value Reference Range Interpretation Comments Vitamin B12 Lvl (test code = Vitamin 1508 B12 Lvl) [facility]2022-06-28 11:17:00 Test Item Value Reference Range Interpretation Comments Folate Lvl (test code = Folate Lvl) 22.3 [facility]2022-06-28 11:17:00 Test Item Value Reference Range Interpretation Comments Ferritin Lvl (test code = Ferritin Lvl) 1423 22-275 [facility]2022-06-28 11:17:00 Test Item Value Reference Range Interpretation Comments Glucose Lvl (test code = Glucose Lvl) 205 70-99 [facility]2022-06-28 11:17:00 Test Item Value Reference Range Interpretation Comments BUN (test code = BUN) 60 7-22 [place] 509392-06-28 11:17:00 Test Item Value Reference Range Interpretation Comments Creatinine Lvl (test code = Creatinine 8.46 0.50-1.40 Lvl) [facility]2022-06-28 11:17:00 Test Item Value Reference Range Interpretation Comments Sodium Lvl (test code = Sodium Lvl) 131 135-145 [place] 509392-06-28 11:17:00 Test Item Value Reference Range Interpretation Comments Potassium Lvl (test code = Potassium 5.2 3.5-5.1 Lvl) [place] 509392-06-28 11:17:00 Test Item Value Reference Range Interpretation Comments Chloride Lvl (test code = Chloride Lvl) 93 95-109 [place] 509392-06-28 11:17:00 Test Item Value Reference Range Interpretation Comments CO2 (test code = CO2) 29 24-32 [place] 509392-06-28 11:17:00 Test Item Value Reference Range Interpretation Comments Calcium Lvl (test code = Calcium Lvl) 8.7 8.5-10.5 [place] 509392-06-28 11:17:00 Test Item Value Reference Range Interpretation Comments Total Protein (test code = Total 6.0 6.4-8.4 Protein) [place] 509392-06-28 11:17:00 Test Item Value Reference Range Interpretation Comments Albumin Lvl (test code = Albumin Lvl) 2.6 3.5-5.0 [place] 509392-06-28 11:17:00 Test Item Value Reference Range Interpretation Comments ALT (test code = ALT) 43 See_Comment [Auto mated message] The system which ge nerated this result transmit swathi reference range : <=65. The reference range was not used to interpr et this result as deny l/abnormal. [facility]2022-06-28 11:17:00 Test Item Value Reference Range Interpretation Comments AST (test code = AST) 35 See_Comment [Auto mated message] The system which ge nerated this result transmit swathi reference range : <=37. The reference range was not used to interpr et this result as deny l/abnormal. [facility]2022-06-28 11:17:00 Test Item Value Reference Range Interpretation Comments Alk Phos (test code = Alk Phos) 385 39-136 [place] 509392-06-28 11:17:00 Test Item Value Reference Range Interpretation Comments Bili Total (test code = Bili Total) 1.2 0.2-1.3 [place] 509392-06-28 11:17:00 Test Item Value Reference Range Interpretation Comments AGAP (test code = AGAP) 14.2 10.0-20.0 [place] 509392-06-28 11:17:00 Test Item Value Reference Range Interpretation Comments B/C Ratio (test code = B/C Ratio) 7 1 6-25 [place] 509392-06-28 11:17:00 Test Item Value Reference Range Interpretation Comments Globulin (test code = Globulin) 3.4 2.7-4.2 [facility]2022-06-28 11:17:00 Test Item Value Reference Range Interpretation Comments A/G Ratio (test code = A/G Ratio) 0.8 1 0.7-1.6 [facility]2022-06-28 11:17:00 Test Item Value Reference Range Interpretation Comments eGFR (test code = eGFR) 6 [facility]2022-06-28 11:17:00 Test Item Value Reference Range Interpretation Comments Magnesium Lvl (test code = Magnesium 1.9 1.8-2.4 Lvl) [facility]2022-06-28 11:17:00 Test Item Value Reference Range Interpretation Comments LDH (test code = LDH) 297 98-192 [facility]2022-06-28 11:17:00 Test Item Value Reference Range Interpretation Comments Procalcitonin Lvl (test 0.63 See_Comment [Au tomated message] code = Procalcitonin Lvl) e system which generated this result transmitted ref erence range: <=0.10. The reference range was not used to interpr et this result as normal/abnormal . [facility]FlcwqgjLNDEVEQKLS2193-31-45 11:17:00 Test Item Value Reference Range Interpretation Comments D-Dimer (test code = D-Dimer) 5.33 [facility] CenterDmysyzlDSKBGDAVUU6264-50-71 11:17:00 Test Item Value Reference Range Interpretation Comments Hep Bs Ag (test code Negative *NA*(11/25/21 = Hep Bs Ag) 6:17 AM) [facility] ClubCtzvovvYSOTAQYGOC7290-38-83 11:17:00 Test Item Value Reference Range Interpretation Comments C-REACTIVE PROTEIN (test code = 134.0 C-REACTIVE PROTEIN) [place] 735922-06-28 11:17:00 Test Item Value Reference Range Interpretation Comments Interleukin 6 (test code = Interleukin 25.99 6) [facility]2022-06-28 11:17:00 Test Item Value Reference Range Interpretation Comments Vitamin B12 Lvl (test code = Vitamin 1508 B12 Lvl) [facility]2022-06-28 11:17:00 Test Item Value Reference Range Interpretation Comments Folate Lvl (test code = Folate Lvl) 22.3 [facility]2022-06-28 11:17:00 Test Item Value Reference Range Interpretation Comments Ferritin Lvl (test code = Ferritin Lvl) 1423 43-275 [place] 509392-06-28 11:17:00 Test Item Value Reference Range Interpretation Comments Glucose Lvl (test code = Glucose Lvl) 205 70-99 [place] 509392-06-28 11:17:00 Test Item Value Reference Range Interpretation Comments BUN (test code = BUN) 60 7-22 [place] 509392-06-28 11:17:00 Test Item Value Reference Range Interpretation Comments Creatinine Lvl (test code = Creatinine 8.46 0.50-1.40 Lvl) [place] 509392-06-28 11:17:00 Test Item Value Reference Range Interpretation Comments Sodium Lvl (test code = Sodium Lvl) 131 135-145 [place] 509392-06-28 11:17:00 Test Item Value Reference Range Interpretation Comments Potassium Lvl (test code = Potassium 5.2 3.5-5.1 Lvl) [place] 509392-06-28 11:17:00 Test Item Value Reference Range Interpretation Comments Chloride Lvl (test code = Chloride Lvl) 93 95-109 [place] 509392-06-28 11:17:00 Test Item Value Reference Range Interpretation Comments CO2 (test code = CO2) 29 24-32 [place] 509392-06-28 11:17:00 Test Item Value Reference Range Interpretation Comments Calcium Lvl (test code = Calcium Lvl) 8.7 8.5-10.5 [place] 509392-06-28 11:17:00 Test Item Value Reference Range Interpretation Comments Total Protein (test code = Total 6.0 6.4-8.4 Protein) [place] 509392-06-28 11:17:00 Test Item Value Reference Range Interpretation Comments Albumin Lvl (test code = Albumin Lvl) 2.6 3.5-5.0 [place] 509392-06-28 11:17:00 Test Item Value Reference Range Interpretation Comments ALT (test code = ALT) 43 See_Comment [Auto mated message] The system which ge nerated this result transmit swathi reference range : <=65. The reference range was not used to interpr et this result as deny l/abnormal. [facility] [id number] 11:17:00 Test Item Value Reference Range Interpretation Comments AST (test code = AST) 35 See_Comment [Auto mated message] The system which ge nerated this result transmit swathi reference range : <=37. The reference range was not used to interpr et this result as deny l/abnormal. [place] 509392-06-28 11:17:00 Test Item Value Reference Range Interpretation Comments Alk Phos (test code = Alk Phos) 385 39-136 [facility] HospitalSferra [id number] 11:17:00 Test Item Value Reference Range Interpretation Comments Bili Total (test code = Bili Total) 1.2 0.2-1.3 [place] 509392-06-28 11:17:00 Test Item Value Reference Range Interpretation Comments AGAP (test code = AGAP) 14.2 10.0-20.0 [place] 509392-06-28 11:17:00 Test Item Value Reference Range Interpretation Comments B/C Ratio (test code = B/C Ratio) 7 1 6-25 [place] 509392-06-28 11:17:00 Test Item Value Reference Range Interpretation Comments Globulin (test code = Globulin) 3.4 2.7-4.2 [place] 509392-06-28 11:17:00 Test Item Value Reference Range Interpretation Comments A/G Ratio (test code = A/G Ratio) 0.8 1 0.7-1.6 [place] 509392-06-28 11:17:00 Test Item Value Reference Range Interpretation Comments eGFR (test code = eGFR) 6 [place] 509392-06-28 11:17:00 Test Item Value Reference Range Interpretation Comments Magnesium Lvl (test code = Magnesium 1.9 1.8-2.4 Lvl) [place] 509392-06-28 11:17:00 Test Item Value Reference Range Interpretation Comments LDH (test code = LDH) 297 98-192 [place] 509392-06-28 11:17:00 Test Item Value Reference Range Interpretation Comments Procalcitonin Lvl (test 0.63 See_Comment [Au tomated message] code = Procalcitonin Lvl) Th e system which generated this result transmitted ref erence range: <=0.10. The reference range was not used to interpr et this result as normal/abnormal . [facility] GreenvillePticrkaGHZMLBZTOW3353-66-17 11:17:00 Test Item Value Reference Range Interpretation Comments D-Dimer (test code = D-Dimer) 5.33 [place] 735922-06-28 11:17:00 Test Item Value Reference Range Interpretation Comments Hep Bs Ag (test code Negative *NA*(11/25/21 = Hep Bs Ag) 6:17 AM) [place] 735922-06-28 11:17:00 Test Item Value Reference Range Interpretation Comments C-REACTIVE PROTEIN (test code = 134.0 C-REACTIVE PROTEIN) [place] 735922-06-28 11:17:00 Test Item Value Reference Range Interpretation Comments Interleukin 6 (test code = Interleukin 25.99 6) [facility]2022-06-28 11:17:00 Test Item Value Reference Range Interpretation Comments Vitamin B12 Lvl (test code = Vitamin 1508 B12 Lvl) [facility]2022-06-28 11:17:00 Test Item Value Reference Range Interpretation Comments Folate Lvl (test code = Folate Lvl) 22.3 [facility]2022-06-28 11:17:00 Test Item Value Reference Range Interpretation Comments Ferritin Lvl (test code = Ferritin Lvl) 1423 22-275 [facility]2022-06-28 11:17:00 Test Item Value Reference Range Interpretation Comments Glucose Lvl (test code = Glucose Lvl) 205 70-99 [facility]2022-06-28 11:17:00 Test Item Value Reference Range Interpretation Comments BUN (test code = BUN) 60 7-22 [facility]2022-06-28 11:17:00 Test Item Value Reference Range Interpretation Comments Creatinine Lvl (test code = Creatinine 8.46 0.50-1.40 Lvl) [facility]2022-06-28 11:17:00 Test Item Value Reference Range Interpretation Comments Sodium Lvl (test code = Sodium Lvl) 131 135-145 [facility]2022-06-28 11:17:00 Test Item Value Reference Range Interpretation Comments Potassium Lvl (test code = Potassium 5.2 3.5-5.1 Lvl) [place] 509392-06-28 11:17:00 Test Item Value Reference Range Interpretation Comments Chloride Lvl (test code = Chloride Lvl) 93 95-109 [place] 509392-06-28 11:17:00 Test Item Value Reference Range Interpretation Comments CO2 (test code = CO2) 29 24-32 [place] 509392-06-28 11:17:00 Test Item Value Reference Range Interpretation Comments Calcium Lvl (test code = Calcium Lvl) 8.7 8.5-10.5 [place] 509392-06-28 11:17:00 Test Item Value Reference Range Interpretation Comments Total Protein (test code = Total 6.0 6.4-8.4 Protein) [place] 509392-06-28 11:17:00 Test Item Value Reference Range Interpretation Comments Albumin Lvl (test code = Albumin Lvl) 2.6 3.5-5.0 [place] 509392-06-28 11:17:00 Test Item Value Reference Range Interpretation Comments ALT (test code = ALT) 43 See_Comment [Auto mated message] The system which ge nerated this result transmit swathi reference range : <=65. The reference range was not used to interpr et this result as deny l/abnormal. [facility]2022-06-28 11:17:00 Test Item Value Reference Range Interpretation Comments AST (test code = AST) 35 See_Comment [Auto mated message] The system which ge nerated this result transmit swathi reference range : <=37. The reference range was not used to interpr et this result as deny l/abnormal. [place] 509392-06-28 11:17:00 Test Item Value Reference Range Interpretation Comments Alk Phos (test code = Alk Phos) 385 39-136 [place] 509392-06-28 11:17:00 Test Item Value Reference Range Interpretation Comments Bili Total (test code = Bili Total) 1.2 0.2-1.3 [place] 509392-06-28 11:17:00 Test Item Value Reference Range Interpretation Comments AGAP (test code = AGAP) 14.2 10.0-20.0 [place] 509392-06-28 11:17:00 Test Item Value Reference Range Interpretation Comments B/C Ratio (test code = B/C Ratio) 7 1 6-25 [facility]2022-06-28 11:17:00 Test Item Value Reference Range Interpretation Comments Globulin (test code = Globulin) 3.4 2.7-4.2 [facility]2022-06-28 11:17:00 Test Item Value Reference Range Interpretation Comments A/G Ratio (test code = A/G Ratio) 0.8 1 0.7-1.6 [facility]2022-06-28 11:17:00 Test Item Value Reference Range Interpretation Comments eGFR (test code = eGFR) 6 [facility]2022-06-28 11:17:00 Test Item Value Reference Range Interpretation Comments Magnesium Lvl (test code = Magnesium 1.9 1.8-2.4 Lvl) [facility]2022-06-28 11:17:00 Test Item Value Reference Range Interpretation Comments LDH (test code = LDH) 297 98-192 [facility]2022-06-28 11:17:00 Test Item Value Reference Range Interpretation Comments Procalcitonin Lvl (test 0.63 See_Comment [Au tomated message] code = Procalcitonin Lvl) Th e system which generated this result transmitted ref erence range: <=0.10. The reference range was not used to interpr et this result as normal/abnormal . [facility] GreenvilleUlrgzpgQZJSDHZDKE4558-78-19 11:17:00 Test Item Value Reference Range Interpretation Comments D-Dimer (test code = D-Dimer) 5.33 [facility] CenterDdftugkYJNZYNEOLA2213-08-50 11:17:00 Test Item Value Reference Range Interpretation Comments Hep Bs Ag (test code Negative *NA*(11/25/21 = Hep Bs Ag) 6:17 AM) [facility] ClubYlpnywlETOWYCEAOZ9634-91-08 11:17:00 Test Item Value Reference Range Interpretation Comments C-REACTIVE PROTEIN (test code = 134.0 C-REACTIVE PROTEIN) [facility] CenterKbklrmrINHHYLLNEK5926-87-08 11:17:00 Test Item Value Reference Range Interpretation Comments Interleukin 6 (test code = Interleukin 25.99 6) [facility] [id number] 05:52:00 Test Item Value Reference Range Interpretation Comments RBC product (test code Product available = RBC product) 4(11/25/21 12:52 AM) [facility] [id number] 05:52:00 Test Item Value Reference Range Interpretation Comments RBC product (test code Product available = RBC product) 4(11/25/21 12:52 AM) [facility] [id number] 05:52:00 Test Item Value Reference Range Interpretation Comments RBC product (test code Product available = RBC product) 4(11/25/21 12:52 AM) [facility] [id number] 05:52:00 Test Item Value Reference Range Interpretation Comments RBC product (test code Product available = RBC product) 4(11/25/21 12:52 AM) [facility] [id number] 05:52:00 Test Item Value Reference Range Interpretation Comments RBC product (test code Product available = RBC product) 4(11/25/21 12:52 AM) [facility] [id number] 05:52:00 Test Item Value Reference Range Interpretation Comments RBC product (test code Product available = RBC product) 4(11/25/21 12:52 AM) [facility] [id number] 05:52:00 Test Item Value Reference Range Interpretation Comments RBC product (test code Product available = RBC product) 4(11/25/21 12:52 AM) [facility] [id number] 05:52:00 Test Item Value Reference Range Interpretation Comments RBC product (test code Product available = RBC product) 4(11/25/21 12:52 AM) [facility] [id number] 05:52:00 Test Item Value Reference Range Interpretation Comments RBC product (test code Product available = RBC product) 4(11/25/21 12:52 AM) [facility] [id number] 05:52:00 Test Item Value Reference Range Interpretation Comments RBC product (test code Product available = RBC product) 4(11/25/21 12:52 AM) [facility] [id number] 05:52:00 Test Item Value Reference Range Interpretation Comments RBC product (test code Product available = RBC product) 4(11/25/21 12:52 AM) [facility] [id number] 05:52:00 Test Item Value Reference Range Interpretation Comments RBC product (test code Product available = RBC product) 4(11/25/21 12:52 AM) [facility] BANK [id number] 05:52:00 Test Item Value Reference Range Interpretation Comments RBC product (test code Product available = RBC product) 4(11/25/21 12:52 AM) [facility] ClubGrkoydsKNYLXXTNFL7471-70-12 05:43:00 Test Item Value Reference Range Interpretation Comments Coronavirus (COVID-19) Detected MANUEL (test code = 8*ABN*(11/25/21 12:43 Coronavirus (COVID-19) AM) MANUEL) [facility] ClubCbxsleaWIPENYLXDQ7258-95-76 05:43:00 Test Item Value Reference Range Interpretation Comments Coronavirus (COVID-19) Detected MANUEL (test code = 8*ABN*(11/25/21 12:43 Coronavirus (COVID-19) AM) MANUEL) [facility] ClubXccctebWSWSJHYTHW9338-06-96 05:43:00 Test Item Value Reference Range Interpretation Comments Coronavirus (COVID-19) Detected MANUEL (test code = 8*ABN*(11/25/21 12:43 Coronavirus (COVID-19) AM) MANUEL) [facility] ClubRdpudxcTTUGQLRZVY1500-89-87 05:43:00 Test Item Value Reference Range Interpretation Comments Coronavirus (COVID-19) Detected MANUEL (test code = 8*ABN*(11/25/21 12:43 Coronavirus (COVID-19) AM) MANUEL) [facility] ClubGkmilawAOQGDMMOUG7130-38-48 05:43:00 Test Item Value Reference Range Interpretation Comments Coronavirus (COVID-19) Detected MANUEL (test code = 8*ABN*(11/25/21 12:43 Coronavirus (COVID-19) AM) MANUEL) [facility] ClubBlwxqkyXXIBHNXKWL6502-04-04 05:43:00 Test Item Value Reference Range Interpretation Comments Coronavirus (COVID-19) Detected MANUEL (test code = 8*ABN*(11/25/21 12:43 Coronavirus (COVID-19) AM) MANUEL) [facility] ClubYouvndnVWBFADZNOF7085-45-77 05:43:00 Test Item Value Reference Range Interpretation Comments Coronavirus (COVID-19) Detected MANUEL (test code = 8*ABN*(11/25/21 12:43 Coronavirus (COVID-19) AM) MANUEL) [facility] ClubQlttgrxBETVJHWBCD2362-54-80 05:43:00 Test Item Value Reference Range Interpretation Comments Coronavirus (COVID-19) Detected MANUEL (test code = 8*ABN*(11/25/21 12:43 Coronavirus (COVID-19) AM) MANUEL) [facility] ClubQvypmmrTLIWPOXXOA2124-06-94 05:43:00 Test Item Value Reference Range Interpretation Comments Coronavirus (COVID-19) Detected MANUEL (test code = 8*ABN*(11/25/21 12:43 Coronavirus (COVID-19) AM) MANUEL) [facility] ClubNmkelvkZYZMBGVUSI9898-61-40 05:43:00 Test Item Value Reference Range Interpretation Comments Coronavirus (COVID-19) Detected MANUEL (test code = 8*ABN*(11/25/21 12:43 Coronavirus (COVID-19) AM) MANUEL) [facility] ClubOxjrouiKGTGQOZMVE0999-90-10 05:43:00 Test Item Value Reference Range Interpretation Comments Coronavirus (COVID-19) Detected MANUEL (test code = 8*ABN*(11/25/21 12:43 Coronavirus (COVID-19) AM) MANUEL) [facility] ClubRmlhrraYRKPIWXLPH3759-56-62 05:43:00 Test Item Value Reference Range Interpretation Comments Coronavirus (COVID-19) Detected MANUEL (test code = 8*ABN*(11/25/21 12:43 Coronavirus (COVID-19) AM) MANUEL) [facility] ClubJbywekkQMAAGYLTKO1104-07-95 05:43:00 Test Item Value Reference Range Interpretation Comments Coronavirus (COVID-19) Detected MANUEL (test code = 8*ABN*(11/25/21 12:43 Coronavirus (COVID-19) AM) MANUEL) [facility] AND [id number] 05:23:00 Test Item Value Reference Range Interpretation Comments Occult Bld Stl (test Negative (11/25/21 12:23 code = Occult Bld Stl) AM) [facility] AND [id number] 05:23:00 Test Item Value Reference Range Interpretation Comments Occult Bld Stl (test Negative (11/25/21 12:23 code = Occult Bld Stl) AM) [facility] [id number] 05:23:00 Test Item Value Reference Range Interpretation Comments Occult Bld Stl (test Negative (11/25/21 12:23 code = Occult Bld Stl) AM) [facility] [id number] 05:23:00 Test Item Value Reference Range Interpretation Comments Occult Bld Stl (test Negative (11/25/21 12:23 code = Occult Bld Stl) AM) [facility] [id number] 05:23:00 Test Item Value Reference Range Interpretation Comments Occult Bld Stl (test Negative (11/25/21 12:23 code = Occult Bld Stl) AM) [facility] [id number] 05:23:00 Test Item Value Reference Range Interpretation Comments Occult Bld Stl (test Negative (11/25/21 12:23 code = Occult Bld Stl) AM) [facility] [id number] 05:23:00 Test Item Value Reference Range Interpretation Comments Occult Bld Stl (test Negative (11/25/21 12:23 code = Occult Bld Stl) AM) [facility] [id number] 05:23:00 Test Item Value Reference Range Interpretation Comments Occult Bld Stl (test Negative (11/25/21 12:23 code = Occult Bld Stl) AM) [facility] [id number] 05:23:00 Test Item Value Reference Range Interpretation Comments Occult Bld Stl (test Negative (11/25/21 12:23 code = Occult Bld Stl) AM) [facility] [id number] 05:23:00 Test Item Value Reference Range Interpretation Comments Occult Bld Stl (test Negative (11/25/21 12:23 code = Occult Bld Stl) AM) [facility] [id number] 05:23:00 Test Item Value Reference Range Interpretation Comments Occult Bld Stl (test Negative (11/25/21 12:23 code = Occult Bld Stl) AM) [facility] [id number] 05:23:00 Test Item Value Reference Range Interpretation Comments Occult Bld Stl (test Negative (11/25/21 12:23 code = Occult Bld Stl) AM) [facility] AND [id number] 05:23:00 Test Item Value Reference Range Interpretation Comments Occult Bld Stl (test Negative (11/25/21 12:23 code = Occult Bld Stl) AM) [facility] CenterSocialMedia305 [facility] [id number] 04:12:00 Test Item Value Reference Range Interpretation Comments ABO/Rh (test code = ABO/Rh) AB POS [facility]CICCWOR[facility] [id number] 04:12:00 Test Item Value Reference Range Interpretation Comments Antibody Scrn (test Negative (11/24/21 code = Antibody Scrn) 11:12 PM) [facility]23[address] [facility] [id number] 04:12:00 Test Item Value Reference Range Interpretation Comments Total CK (test code = Total CK) 86 12-191 [facility] HospitalViv[facility]ig [id number] 04:12:00 Test Item Value Reference Range Interpretation Comments HS Troponin I (test code = HS Troponin 316 I) [facility] [employer] [id number] 04:12:00 Test Item Value Reference Range Interpretation Comments Glucose Lvl (test code = Glucose Lvl) 261 70-[address] [facility] [employer] [id number] 04:12:00 Test Item Value Reference Range Interpretation Comments BUN (test code = BUN) 60 7-[address] [facility] [employer] [id number] 04:12:00 Test Item Value Reference Range Interpretation Comments Creatinine Lvl (test code = Creatinine 8.49 0.50-1.40 Lvl) [facility] [employer] [id number] 04:12:00 Test Item Value Reference Range Interpretation Comments Sodium Lvl (test code = Sodium Lvl) 133 135-[address] [facility] [employer]M2022-06-28 04:12:00 Test Item Value Reference Range Interpretation Comments Potassium Lvl (test code = Potassium 4.9 3.5-5.1 Lvl) [facility] [employer] [id number] 04:12:00 Test Item Value Reference Range Interpretation Comments Chloride Lvl (test code = Chloride Lvl) 93 95-[address] [facility] [employer] [id number] 04:12:00 Test Item Value Reference Range Interpretation Comments CO2 (test code = CO2) 31 24-[address] [facility] [employer] [id number] 04:12:00 Test Item Value Reference Range Interpretation Comments Calcium Lvl (test code = Calcium Lvl) 9.1 8.5-10.5 [place] 509392-06-28 04:12:00 Test Item Value Reference Range Interpretation Comments Total Protein (test code = Total 6.8 6.4-8.4 Protein) [place] 509392-06-28 04:12:00 Test Item Value Reference Range Interpretation Comments Albumin Lvl (test code = Albumin Lvl) 2.5 3.5-5.0 [place] 509392-06-28 04:12:00 Test Item Value Reference Range Interpretation Comments ALT (test code = ALT) 51 See_Comment [Auto mated message] The system which ge nerated this result transmit swathi reference range : <=65. The reference range was not used to interpr et this result as deny l/abnormal. [facility] CenterPlayground Energy [id number] 04:12:00 Test Item Value Reference Range Interpretation Comments AST (test code = AST) 36 See_Comment [Auto mated message] The system which ge nerated this result transmit swathi reference range : <=37. The reference range was not used to interpr et this result as deny l/abnormal. [facility] [id number] 04:12:00 Test Item Value Reference Range Interpretation Comments Alk Phos (test code = Alk Phos) 383 39-136 [facility] [id number] 04:12:00 Test Item Value Reference Range Interpretation Comments Bili Total (test code = Bili Total) 1.1 0.2-1.3 [facility] [id number] 04:12:00 Test Item Value Reference Range Interpretation Comments AGAP (test code = AGAP) 13.9 10.0-20.0 [facility] [id number] 04:12:00 Test Item Value Reference Range Interpretation Comments B/C Ratio (test code = B/C Ratio) 7 1 6-25 [facility] [id number] 04:12:00 Test Item Value Reference Range Interpretation Comments Globulin (test code = Globulin) 4.3 2.7-4.2 [facility] [id number] 04:12:00 Test Item Value Reference Range Interpretation Comments A/G Ratio (test code = A/G Ratio) 0.6 1 0.7-1.6 [facility] [id number] 04:12:00 Test Item Value Reference Range Interpretation Comments eGFR (test code = eGFR) 5 [facility] [id number] 04:12:00 Test Item Value Reference Range Interpretation Comments Procalcitonin Lvl (test 0.69 See_Comment [Au tomated message] code = Procalcitonin Lvl) Th e system which generated this result transmitted ref erence range: <=0.10. The reference range was not used to interpr et this result as normal/abnormal . [facility]villePaazqyoHTPNSBMOGG9929-72-71 04:12:00 Test Item Value Reference Range Interpretation Comments WBC (test code = WBC) 4.1 3.7-10.4 [place] 796562-06-28 04:12:00 Test Item Value Reference Range Interpretation Comments RBC (test code = RBC) 1.78 4.70-6.10 [facility] GreenvilleGdqedyrHZJULZZVXH1429-56-62 04:12:00 Test Item Value Reference Range Interpretation Comments Hgb (test code = Hgb) 6.5 14.0-18.0 [facility] GreenvilleArbqptrTCMUUKOPRF9342-00-87 04:12:00 Test Item Value Reference Range Interpretation Comments Hct (test code = Hct) 19.5 42.0-54.0 [place] 796562-06-28 04:12:00 Test Item Value Reference Range Interpretation Comments MCV (test code = MCV) 110.0 80.0-94.0 [place] 796562-06-28 04:12:00 Test Item Value Reference Range Interpretation Comments MCH (test code = MCH) 36.5 pg 27.0-31.0 [facility] GreenvillePbxaxqzIHLDNQLDEP1905-48-01 04:12:00 Test Item Value Reference Range Interpretation Comments MCHC (test code = MCHC) 33.2 32.0-36.0 [place] 796562-06-28 04:12:00 Test Item Value Reference Range Interpretation Comments RDW (test code = RDW) 19.0 11.5-14.5 [place] 796562-06-28 04:12:00 Test Item Value Reference Range Interpretation Comments Platelet (test code = Platelet) 180 133-450 [facility] GreenvilleUqcwazpCELYVLCCFV0764-81-44 04:12:00 Test Item Value Reference Range Interpretation Comments MPV (test code = MPV) 8.3 7.4-10.4 [place] 796562-06-28 04:12:00 Test Item Value Reference Range Interpretation Comments PTT (test code = PTT) 45.4 s 22.9-35.8 [place] 796562-06-28 04:12:00 Test Item Value Reference Range Interpretation Comments PT (test code = PT) 19.1 s 12.0-14.7 [place] [address]-06-28 04:12:00 Test Item Value Reference Range Interpretation Comments INR (test code = INR) 1.62 1 0.85-1.17 [place] 796562-06-28 04:12:00 Test Item Value Reference Range Interpretation Comments RBC Morph (test code = See Note (11/24/21 RBC Morph) 11:12 PM) [facility] GreenvilleUkinmdoTVROMWLMQS3873-45-87 04:12:00 Test Item Value Reference Range Interpretation Comments Plt Morph (test code = Normal (11/24/21 11:12 Plt Morph) PM) [facility] GreenvilleTjccjceBKFEPGTSRM7977-97-69 04:12:00 Test Item Value Reference Range Interpretation Comments Segs (test code = Segs) 72.2 45.0-75.0 [facility] GreenvilleNrqqbtbTZLQRBVWNE5169-56-08 04:12:00 Test Item Value Reference Range Interpretation Comments Lymphocytes (test code = Lymphocytes) 16.2 20.0-40.0 [facility] GreenvilleMjgiedxMDBJVVQRMU6863-13-77 04:12:00 Test Item Value Reference Range Interpretation Comments Monocytes (test code = Monocytes) 8.0 2.0-12.0 [place] [address]-06-28 04:12:00 Test Item Value Reference Range Interpretation Comments Eosinophils (test code = 2.7 See_Comment [A utomated message] The Eosinophils) system which ge nerated this result tra nsmitted reference range : <=4.0. The reference r samantha was not used to int erpret this result as normal/abnormal . [facility] GreenvilleNfbciaxRMNVUQMOLK5205-96-61 04:12:00 Test Item Value Reference Range Interpretation Comments Basophils (test code = 0.9 See_Comment [Aut omated message] The Basophils) system which ge nerated this result tra nsmitted reference range : <=1.0. The reference r samantha was not used to int erpret this result as normal/abnormal . [facility] GreenvilleYdftwsmNBZIPIAVCD8269-07-34 04:12:00 Test Item Value Reference Range Interpretation Comments Neutrophils # (test code = Neutrophils 2.9 1.5-8.1 #) [facility] GreenvilleUwklugmNFFWMCJWSD4435-20-14 04:12:00 Test Item Value Reference Range Interpretation Comments Lymphocytes # (test code = Lymphocytes 0.7 1.0-5.5 #) [facility] GreenvilleVolidmjTEKQKSXUDE8739-69-08 04:12:00 Test Item Value Reference Range Interpretation Comments Monocytes # (test code 0.3 See_Comment [Aut omated message] The = Monocytes #) system which generated this result tra nsmitted reference range : <=0.8. The reference r samantha was not used to int erpret this result as normal/abnormal . [facility] GreenvilleRhdecelHTRCNOFIVX5964-52-16 04:12:00 Test Item Value Reference Range Interpretation Comments Eosinophils # (test code 0.1 See_Comment [A utomated message] The = Eosinophils #) system whic h generated this result tra nsmitted reference range : <=0.5. The reference r samantha was not used to int erpret this result as normal/abnormal . [facility] GreenvilleJukurfiPPMQYSXBMW0227-64-46 04:12:00 Test Item Value Reference Range Interpretation Comments Anisocyte (test code = 1+ *ABN*(11/24/21 Anisocyte) 11:12 PM) [facility] GreenvilleHpfcawbVNVHFAUZYH4997-35-03 04:12:00 Test Item Value Reference Range Interpretation Comments Macrocyte (test code = 1+ *ABN*(11/24/21 Macrocyte) 11:12 PM) [facility] GreenvilleLvlffazFLJUQGGXCM7339-23-40 04:12:00 Test Item Value Reference Range Interpretation Comments Microcyte (test code = 1+ *ABN*(11/24/21 Microcyte) 11:12 PM) [facility] JIFZEIL1908-32-70 04:12:00 Test Item Value Reference Range Interpretation Comments ABO/Rh (test code = ABO/Rh) AB POS [facility] [id number] 04:12:00 Test Item Value Reference Range Interpretation Comments Antibody Scrn (test Negative (11/24/21 code = Antibody Scrn) 11:12 PM) [facility] [id number] 04:12:00 Test Item Value Reference Range Interpretation Comments Total CK (test code = Total CK) 86 12-191 [facility] [id number] 04:12:00 Test Item Value Reference Range Interpretation Comments HS Troponin I (test code = HS Troponin 316 I) [facility] [id number] 04:12:00 Test Item Value Reference Range Interpretation Comments Glucose Lvl (test code = Glucose Lvl) 261 70-99 [facility] [id number] 04:12:00 Test Item Value Reference Range Interpretation Comments BUN (test code = BUN) 60 7-22 [facility]2022-06-28 04:12:00 Test Item Value Reference Range Interpretation Comments Creatinine Lvl (test code = Creatinine 8.49 0.50-1.40 Lvl) [facility]2022-06-28 04:12:00 Test Item Value Reference Range Interpretation Comments Sodium Lvl (test code = Sodium Lvl) 133 135-145 [facility]2022-06-28 04:12:00 Test Item Value Reference Range Interpretation Comments Potassium Lvl (test code = Potassium 4.9 3.5-5.1 Lvl) [facility]2022-06-28 04:12:00 Test Item Value Reference Range Interpretation Comments Chloride Lvl (test code = Chloride Lvl) 93 95-109 [facility]2022-06-28 04:12:00 Test Item Value Reference Range Interpretation Comments CO2 (test code = CO2) 31 24-32 [facility]2022-06-28 04:12:00 Test Item Value Reference Range Interpretation Comments Calcium Lvl (test code = Calcium Lvl) 9.1 8.5-10.5 [facility]2022-06-28 04:12:00 Test Item Value Reference Range Interpretation Comments Total Protein (test code = Total 6.8 6.4-8.4 Protein) [facility]2022-06-28 04:12:00 Test Item Value Reference Range Interpretation Comments Albumin Lvl (test code = Albumin Lvl) 2.5 3.5-5.0 [facility] [id number] 04:12:00 Test Item Value Reference Range Interpretation Comments ALT (test code = ALT) 51 See_Comment [Auto mated message] The system which ge nerated this result transmit swathi reference range : <=65. The reference range was not used to interpr et this result as deny l/abnormal. [facility] [employer] [id number] 04:12:00 Test Item Value Reference Range Interpretation Comments AST (test code = AST) 36 See_Comment [Auto mated message] The system which ge nerated this result transmit swathi reference range : <=37. The reference range was not used to interpr et this result as deny l/abnormal. [facility] [employer] [id number] 04:12:00 Test Item Value Reference Range Interpretation Comments Alk Phos (test code = Alk Phos) 383 39-[address] [facility] [employer] [id number] 04:12:00 Test Item Value Reference Range Interpretation Comments Bili Total (test code = Bili Total) 1.1 0.2-1.[address] [facility] [employer] [id number] 04:12:00 Test Item Value Reference Range Interpretation Comments AGAP (test code = AGAP) 13.9 10.0-20.[address] [facility] [employer] [id number] 04:12:00 Test Item Value Reference Range Interpretation Comments B/C Ratio (test code = B/C Ratio) 7 1 6-[address] [facility] [employer] [id number] 04:12:00 Test Item Value Reference Range Interpretation Comments Globulin (test code = Globulin) 4.3 2.7-4.[address] [facility] [employer] [id number] 04:12:00 Test Item Value Reference Range Interpretation Comments A/G Ratio (test code = A/G Ratio) 0.6 1 0.7-1.[address] [facility] [employer] [id number] 04:12:00 Test Item Value Reference Range Interpretation Comments eGFR (test code = eGFR) [address] [facility] [employer] [id number] 04:12:00 Test Item Value Reference Range Interpretation Comments Procalcitonin Lvl (test 0.69 See_Comment [Au tomated message] code = Procalcitonin Lvl) Th e system which generated this result transmitted ref erence range: <=0.10. The reference range was not used to interpr et this result as normal/abnormal . [facility] GreenvilleSnbdzctSWFKFVRWTF3355-98-20 04:12:00 Test Item Value Reference Range Interpretation Comments WBC (test code = WBC) 4.1 3.7-10.4 [place] 796562-06-28 04:12:00 Test Item Value Reference Range Interpretation Comments RBC (test code = RBC) 1.78 4.70-6.10 [place] 796562-06-28 04:12:00 Test Item Value Reference Range Interpretation Comments Hgb (test code = Hgb) 6.5 14.0-18.0 [place] [address]-06-28 04:12:00 Test Item Value Reference Range Interpretation Comments Hct (test code = Hct) 19.5 42.0-54.0 [place] 796562-06-28 04:12:00 Test Item Value Reference Range Interpretation Comments MCV (test code = MCV) 110.0 80.0-94.0 [place] [address]-06-28 04:12:00 Test Item Value Reference Range Interpretation Comments MCH (test code = MCH) 36.5 pg 27.0-31.0 [facility] GreenvilleEdrirugRQTIJOAXPY4893-10-26 04:12:00 Test Item Value Reference Range Interpretation Comments MCHC (test code = MCHC) 33.2 32.0-36.0 [facility] GreenvilleBsyvvxvTNMPULONSC7008-18-06 04:12:00 Test Item Value Reference Range Interpretation Comments RDW (test code = RDW) 19.0 11.5-14.5 [place] 796562-06-28 04:12:00 Test Item Value Reference Range Interpretation Comments Platelet (test code = Platelet) 180 133-450 [place] 796562-06-28 04:12:00 Test Item Value Reference Range Interpretation Comments MPV (test code = MPV) 8.3 7.4-10.4 [place] 796562-06-28 04:12:00 Test Item Value Reference Range Interpretation Comments PTT (test code = PTT) 45.4 s 22.9-35.8 [place] 796562-06-28 04:12:00 Test Item Value Reference Range Interpretation Comments PT (test code = PT) 19.1 s 12.0-14.7 [facility] GreenvilleIiacdyvQIFCWNEVIQ1184-58-48 04:12:00 Test Item Value Reference Range Interpretation Comments INR (test code = INR) 1.62 1 0.85-1.17 [facility] GreenvilleUiqctbqNTFZVRKANQ3150-58-55 04:12:00 Test Item Value Reference Range Interpretation Comments RBC Morph (test code = See Note (11/24/21 RBC Morph) 11:12 PM) [facility] GreenvilleRoqntlaSNQOPHVCTY0709-90-78 04:12:00 Test Item Value Reference Range Interpretation Comments Plt Morph (test code = Normal (11/24/21 11:12 Plt Morph) PM) [facility] GreenvilleXjiihniVPRBRXASKT7554-83-44 04:12:00 Test Item Value Reference Range Interpretation Comments Segs (test code = Segs) 72.2 45.0-75.0 [facility] GreenvilleFambavxZYKNGJXXRL0607-64-06 04:12:00 Test Item Value Reference Range Interpretation Comments Lymphocytes (test code = Lymphocytes) 16.2 20.0-40.0 [facility] GreenvilleBehueknCLURQVKIVI5574-03-32 04:12:00 Test Item Value Reference Range Interpretation Comments Monocytes (test code = Monocytes) 8.0 2.0-12.0 [facility] GreenvilleHghzjwzLOAKZXWXIJ5222-79-76 04:12:00 Test Item Value Reference Range Interpretation Comments Eosinophils (test code = 2.7 See_Comment [A utomated message] The Eosinophils) system which ge nerated this result tra nsmitted reference range : <=4.0. The reference r samantha was not used to int erpret this result as normal/abnormal . [facility] GreenvilleZzplienMTMLEOLMBQ9423-84-45 04:12:00 Test Item Value Reference Range Interpretation Comments Basophils (test code = 0.9 See_Comment [Aut omated message] The Basophils) system which ge nerated this result tra nsmitted reference range : <=1.0. The reference r samantha was not used to int erpret this result as normal/abnormal . [facility] GreenvilleDdedeykNUJQCUDUZY2601-95-35 04:12:00 Test Item Value Reference Range Interpretation Comments Neutrophils # (test code = Neutrophils 2.9 1.5-8.1 #) [facility] GreenvilleWwcclcfKLAAIXQUHL9409-16-93 04:12:00 Test Item Value Reference Range Interpretation Comments Lymphocytes # (test code = Lymphocytes 0.7 1.0-5.5 #) [facility] SurgeryXlzlapuDSHUAJDQPQ2787-06-48 04:12:00 Test Item Value Reference Range Interpretation Comments Monocytes # (test code 0.3 See_Comment [Aut omated message] The = Monocytes #) system which generated this result tra nsmitted reference range : <=0.8. The reference r samantha was not used to int erpret this result as normal/abnormal . [facility] CenterIcrmdkdIABAHZWKWO5786-07-63 04:12:00 Test Item Value Reference Range Interpretation Comments Eosinophils # (test code 0.1 See_Comment [A utomated message] The = Eosinophils #) system whic h generated this result tra nsmitted reference range : <=0.5. The reference r samantha was not used to int erpret this result as normal/abnormal . [facility] CenterAekbqnjJPEHEFPPHD0604-38-63 04:12:00 Test Item Value Reference Range Interpretation Comments Anisocyte (test code = 1+ *ABN*(11/24/21 Anisocyte) 11:12 PM) [facility] CenterMuxsmzlZVYTRQIRVL5242-63-34 04:12:00 Test Item Value Reference Range Interpretation Comments Macrocyte (test code = 1+ *ABN*(11/24/21 Macrocyte) 11:12 PM) [facility] CenterBpuuyuvZVDNLSZYLU7918-97-49 04:12:00 Test Item Value Reference Range Interpretation Comments Microcyte (test code = 1+ *ABN*(11/24/21 Microcyte) 11:12 PM) [facility] [id number] 04:12:00 Test Item Value Reference Range Interpretation Comments ABO/Rh (test code = ABO/Rh) AB POS [facility] [id number] 04:12:00 Test Item Value Reference Range Interpretation Comments Antibody Scrn (test Negative (11/24/21 code = Antibody Scrn) 11:12 PM) [facility] HospitalOdys[facility] [id number] 04:12:00 Test Item Value Reference Range Interpretation Comments Total CK (test code = Total CK) 86 12-191 [facility] PLAPKFM9027-48-06 04:12:00 Test Item Value Reference Range Interpretation Comments HS Troponin I (test code = HS Troponin 316 I) [facility] HospitalFlynnCHEM [id number] 04:12:00 Test Item Value Reference Range Interpretation Comments Glucose Lvl (test code = Glucose Lvl) 261 70-99 [place] 509392-06-28 04:12:00 Test Item Value Reference Range Interpretation Comments BUN (test code = BUN) 60 7-22 [place] 509392-06-28 04:12:00 Test Item Value Reference Range Interpretation Comments Creatinine Lvl (test code = Creatinine 8.49 0.50-1.40 Lvl) [place] 509392-06-28 04:12:00 Test Item Value Reference Range Interpretation Comments Sodium Lvl (test code = Sodium Lvl) 133 135-145 [place] 509392-06-28 04:12:00 Test Item Value Reference Range Interpretation Comments Potassium Lvl (test code = Potassium 4.9 3.5-5.1 Lvl) [place] 509392-06-28 04:12:00 Test Item Value Reference Range Interpretation Comments Chloride Lvl (test code = Chloride Lvl) 93 95-109 [place] 509392-06-28 04:12:00 Test Item Value Reference Range Interpretation Comments CO2 (test code = CO2) 31 24-32 [place] 509392-06-28 04:12:00 Test Item Value Reference Range Interpretation Comments Calcium Lvl (test code = Calcium Lvl) 9.1 8.5-10.5 [place] 509392-06-28 04:12:00 Test Item Value Reference Range Interpretation Comments Total Protein (test code = Total 6.8 6.4-8.4 Protein) [place] 509392-06-28 04:12:00 Test Item Value Reference Range Interpretation Comments Albumin Lvl (test code = Albumin Lvl) 2.5 3.5-5.0 [place] 509392-06-28 04:12:00 Test Item Value Reference Range Interpretation Comments ALT (test code = ALT) 51 See_Comment [Auto mated message] The system which ge nerated this result transmit swathi reference range : <=65. The reference range was not used to interpr et this result as deny l/abnormal. [place] 509392-06-28 04:12:00 Test Item Value Reference Range Interpretation Comments AST (test code = AST) 36 See_Comment [Auto mated message] The system which ge nerated this result transmit swathi reference range : <=37. The reference range was not used to interpr et this result as deny l/abnormal. [place] 509392-06-28 04:12:00 Test Item Value Reference Range Interpretation Comments Alk Phos (test code = Alk Phos) 383 39-136 [place] 509392-06-28 04:12:00 Test Item Value Reference Range Interpretation Comments Bili Total (test code = Bili Total) 1.1 0.2-1.3 [place] 509392-06-28 04:12:00 Test Item Value Reference Range Interpretation Comments AGAP (test code = AGAP) 13.9 10.0-20.0 [place] 509392-06-28 04:12:00 Test Item Value Reference Range Interpretation Comments B/C Ratio (test code = B/C Ratio) 7 1 6-25 [place] 509392-06-28 04:12:00 Test Item Value Reference Range Interpretation Comments Globulin (test code = Globulin) 4.3 2.7-4.2 [place] 509392-06-28 04:12:00 Test Item Value Reference Range Interpretation Comments A/G Ratio (test code = A/G Ratio) 0.6 1 0.7-1.6 [place] 509392-06-28 04:12:00 Test Item Value Reference Range Interpretation Comments eGFR (test code = eGFR) 5 [place] 509392-06-28 04:12:00 Test Item Value Reference Range Interpretation Comments Procalcitonin Lvl (test 0.69 See_Comment [Au tomated message] code = Procalcitonin Lvl) e system which generated this result transmitted ref erence range: <=0.10. The reference range was not used to interpr et this result as normal/abnormal . [place] 796562-06-28 04:12:00 Test Item Value Reference Range Interpretation Comments WBC (test code = WBC) 4.1 3.7-10.4 [place] 796562-06-28 04:12:00 Test Item Value Reference Range Interpretation Comments RBC (test code = RBC) 1.78 4.70-6.10 [place] 796562-06-28 04:12:00 Test Item Value Reference Range Interpretation Comments Hgb (test code = Hgb) 6.5 14.0-18.0 [facility] GreenvilleRyvnwtcMZRHZKRDWF5460-54-88 04:12:00 Test Item Value Reference Range Interpretation Comments Hct (test code = Hct) 19.5 42.0-54.0 [facility] GreenvilleFzukcseTGRLVCABIK6977-37-88 04:12:00 Test Item Value Reference Range Interpretation Comments MCV (test code = MCV) 110.0 80.0-94.0 [facility] GreenvilleUomwwnbJAUXIFHUQF8887-65-80 04:12:00 Test Item Value Reference Range Interpretation Comments MCH (test code = MCH) 36.5 pg 27.0-31.0 [facility] GreenvilleOxlbxniXOKDKJVWCQ5724-04-32 04:12:00 Test Item Value Reference Range Interpretation Comments MCHC (test code = MCHC) 33.2 32.0-36.0 [facility] GreenvilleXwndwweBZQLGNTFWZ9020-69-40 04:12:00 Test Item Value Reference Range Interpretation Comments RDW (test code = RDW) 19.0 11.5-14.5 [facility] GreenvilleGjubigqPJTZENPOFL9063-54-54 04:12:00 Test Item Value Reference Range Interpretation Comments Platelet (test code = Platelet) 180 133-450 [facility] GreenvilleYujgokqJVUMQFAHFW6863-31-01 04:12:00 Test Item Value Reference Range Interpretation Comments MPV (test code = MPV) 8.3 7.4-10.4 [facility] GreenvilleLygsthcRRTPJTWHMP3732-98-44 04:12:00 Test Item Value Reference Range Interpretation Comments PTT (test code = PTT) 45.4 s 22.9-35.8 [facility] GreenvilleMwwoyuaSSNCDEZCGE9542-07-40 04:12:00 Test Item Value Reference Range Interpretation Comments PT (test code = PT) 19.1 s 12.0-14.7 [place] 796562-06-28 04:12:00 Test Item Value Reference Range Interpretation Comments INR (test code = INR) 1.62 1 0.85-1.17 [place] 796562-06-28 04:12:00 Test Item Value Reference Range Interpretation Comments RBC Morph (test code = See Note (11/24/21 RBC Morph) 11:12 PM) [facility] GreenvilleHhtxaggXSCLLNFKBW2979-27-18 04:12:00 Test Item Value Reference Range Interpretation Comments Plt Morph (test code = Normal (11/24/21 11:12 Plt Morph) PM) [facility] GreenvilleSjrsxvxSJOYBLMTCW4674-54-56 04:12:00 Test Item Value Reference Range Interpretation Comments Segs (test code = Segs) 72.2 45.0-75.0 [place] 796562-06-28 04:12:00 Test Item Value Reference Range Interpretation Comments Lymphocytes (test code = Lymphocytes) 16.2 20.0-40.0 [place] 796562-06-28 04:12:00 Test Item Value Reference Range Interpretation Comments Monocytes (test code = Monocytes) 8.0 2.0-12.0 [place] 796562-06-28 04:12:00 Test Item Value Reference Range Interpretation Comments Eosinophils (test code = 2.7 See_Comment [A utomated message] The Eosinophils) system which ge nerated this result tra nsmitted reference range : <=4.0. The reference r samantha was not used to int erpret this result as normal/abnormal . [place] 796562-06-28 04:12:00 Test Item Value Reference Range Interpretation Comments Basophils (test code = 0.9 See_Comment [Aut omated message] The Basophils) system which ge nerated this result tra nsmitted reference range : <=1.0. The reference r samantha was not used to int erpret this result as normal/abnormal . [facility] GreenvilleDbkzvfuDYVXWBBNHO9724-28-75 04:12:00 Test Item Value Reference Range Interpretation Comments Neutrophils # (test code = Neutrophils 2.9 1.5-8.1 #) [place] 796562-06-28 04:12:00 Test Item Value Reference Range Interpretation Comments Lymphocytes # (test code = Lymphocytes 0.7 1.0-5.5 #) [place] 796562-06-28 04:12:00 Test Item Value Reference Range Interpretation Comments Monocytes # (test code 0.3 See_Comment [Aut omated message] The = Monocytes #) system which generated this result tra nsmitted reference range : <=0.8. The reference r samantha was not used to int erpret this result as normal/abnormal . [place] 796562-06-28 04:12:00 Test Item Value Reference Range Interpretation Comments Eosinophils # (test code 0.1 See_Comment [A utomated message] The = Eosinophils #) system whic h generated this result tra nsmitted reference range : <=0.5. The reference r samantha was not used to int erpret this result as normal/abnormal . [facility] XcncpmjXXLHHYIKNP5016-99-19 04:12:00 Test Item Value Reference Range Interpretation Comments Anisocyte (test code = 1+ *ABN*(11/24/21 Anisocyte) 11:12 PM) [facility] IwdxqddDBXCVZAIIY6898-01-30 04:12:00 Test Item Value Reference Range Interpretation Comments Macrocyte (test code = 1+ *ABN*(11/24/21 Macrocyte) 11:12 PM) [employer]psuOQTYTPIKRQ9150-18-34 04:12:00 Test Item Value Reference Range Interpretation Comments Microcyte (test code = 1+ *ABN*(11/24/21 Microcyte) 11:12 PM) [employer] KNOUAML3660-28-46 04:12:00 Test Item Value Reference Range Interpretation Comments ABO/Rh (test code = ABO/Rh) AB POS [facility] [employer] [id number] 04:12:00 Test Item Value Reference Range Interpretation Comments Antibody Scrn (test Negative (11/24/21 code = Antibody Scrn) 11:12 PM) [employer] [id number] 04:12:00 Test Item Value Reference Range Interpretation Comments Total CK (test code = Total CK) 86 12-[address] [facility] [employer] [id number] 04:12:00 Test Item Value Reference Range Interpretation Comments HS Troponin I (test code = HS Troponin 316 I) [facility]2022-06-28 04:12:00 Test Item Value Reference Range Interpretation Comments Glucose Lvl (test code = Glucose Lvl) 261 70-99 [facility]2022-06-28 04:12:00 Test Item Value Reference Range Interpretation Comments BUN (test code = BUN) 60 7-22 [facility]2022-06-28 04:12:00 Test Item Value Reference Range Interpretation Comments Creatinine Lvl (test code = Creatinine 8.49 0.50-1.40 Lvl) [facility]2022-06-28 04:12:00 Test Item Value Reference Range Interpretation Comments Sodium Lvl (test code = Sodium Lvl) 133 135-145 [place] 509392-06-28 04:12:00 Test Item Value Reference Range Interpretation Comments Potassium Lvl (test code = Potassium 4.9 3.5-5.1 Lvl) [place] 509392-06-28 04:12:00 Test Item Value Reference Range Interpretation Comments Chloride Lvl (test code = Chloride Lvl) 93 95-109 [place] 509392-06-28 04:12:00 Test Item Value Reference Range Interpretation Comments CO2 (test code = CO2) 31 24-32 [place] 509392-06-28 04:12:00 Test Item Value Reference Range Interpretation Comments Calcium Lvl (test code = Calcium Lvl) 9.1 8.5-10.5 [place] [address]-06-28 04:12:00 Test Item Value Reference Range Interpretation Comments Total Protein (test code = Total 6.8 6.4-8.4 Protein) [place] 509392-06-28 04:12:00 Test Item Value Reference Range Interpretation Comments Albumin Lvl (test code = Albumin Lvl) 2.5 3.5-5.0 [place] 509392-06-28 04:12:00 Test Item Value Reference Range Interpretation Comments ALT (test code = ALT) 51 See_Comment [Auto mated message] The system which ge nerated this result transmit swathi reference range : <=65. The reference range was not used to interpr et this result as deny l/abnormal. [place] 509392-06-28 04:12:00 Test Item Value Reference Range Interpretation Comments AST (test code = AST) 36 See_Comment [Auto mated message] The system which ge nerated this result transmit swathi reference range : <=37. The reference range was not used to interpr et this result as deny l/abnormal. [place] 509392-06-28 04:12:00 Test Item Value Reference Range Interpretation Comments Alk Phos (test code = Alk Phos) 383 39-136 [place] 509392-06-28 04:12:00 Test Item Value Reference Range Interpretation Comments Bili Total (test code = Bili Total) 1.1 0.2-1.3 [place] [address]-06-28 04:12:00 Test Item Value Reference Range Interpretation Comments AGAP (test code = AGAP) 13.9 10.0-20.0 [place] 509392-06-28 04:12:00 Test Item Value Reference Range Interpretation Comments B/C Ratio (test code = B/C Ratio) 7 1 6-25 [place] 509392-06-28 04:12:00 Test Item Value Reference Range Interpretation Comments Globulin (test code = Globulin) 4.3 2.7-4.2 [place] 509392-06-28 04:12:00 Test Item Value Reference Range Interpretation Comments A/G Ratio (test code = A/G Ratio) 0.6 1 0.7-1.6 [place] 509392-06-28 04:12:00 Test Item Value Reference Range Interpretation Comments eGFR (test code = eGFR) 5 [place] 509392-06-28 04:12:00 Test Item Value Reference Range Interpretation Comments Procalcitonin Lvl (test 0.69 See_Comment [Au tomated message] code = Procalcitonin Lvl) e system which generated this result transmitted ref erence range: <=0.10. The reference range was not used to interpr et this result as normal/abnormal . [facility]VvarhynTYARUNDVYY0585-61-76 04:12:00 Test Item Value Reference Range Interpretation Comments WBC (test code = WBC) 4.1 3.7-10.4 [place] 796562-06-28 04:12:00 Test Item Value Reference Range Interpretation Comments RBC (test code = RBC) 1.78 4.70-6.10 [place] 796562-06-28 04:12:00 Test Item Value Reference Range Interpretation Comments Hgb (test code = Hgb) 6.5 14.0-18.0 [place] [address]-06-28 04:12:00 Test Item Value Reference Range Interpretation Comments Hct (test code = Hct) 19.5 42.0-54.0 [place] 796562-06-28 04:12:00 Test Item Value Reference Range Interpretation Comments MCV (test code = MCV) 110.0 80.0-94.0 [place] 796562-06-28 04:12:00 Test Item Value Reference Range Interpretation Comments MCH (test code = MCH) 36.5 pg 27.0-31.0 [facility] GreenvilleYdazzsvQOHHGKPWTA0801-42-92 04:12:00 Test Item Value Reference Range Interpretation Comments MCHC (test code = MCHC) 33.2 32.0-36.0 [facility] GreenvilleEsmzncxJQVUHCGZXP0524-41-55 04:12:00 Test Item Value Reference Range Interpretation Comments RDW (test code = RDW) 19.0 11.5-14.5 [facility] GreenvilleHbdxjxuEKEDZSUIFT8532-19-70 04:12:00 Test Item Value Reference Range Interpretation Comments Platelet (test code = Platelet) 180 133-450 [facility] GreenvilleLaugniiCWFGYRZUPM6903-81-65 04:12:00 Test Item Value Reference Range Interpretation Comments MPV (test code = MPV) 8.3 7.4-10.4 [facility] GreenvilleSzjjbfoJUGRRPZKQK3779-57-23 04:12:00 Test Item Value Reference Range Interpretation Comments PTT (test code = PTT) 45.4 s 22.9-35.8 [facility] GreenvilleKgpqvxuGSUYCQCBTT3547-85-91 04:12:00 Test Item Value Reference Range Interpretation Comments PT (test code = PT) 19.1 s 12.0-14.7 [facility] GreenvilleOnkxibcWHMQJGYZAD7213-67-78 04:12:00 Test Item Value Reference Range Interpretation Comments INR (test code = INR) 1.62 1 0.85-1.17 [facility] GreenvilleQlcopqtVQLLCPKHBT7328-48-53 04:12:00 Test Item Value Reference Range Interpretation Comments RBC Morph (test code = See Note (11/24/21 RBC Morph) 11:12 PM) [facility]villeKigwvvsRJFVRLJASV0457-15-14 04:12:00 Test Item Value Reference Range Interpretation Comments Plt Morph (test code = Normal (11/24/21 11:12 Plt Morph) PM) [facility] GreenvilleXqoryxcVVGVMUXGQP5770-25-28 04:12:00 Test Item Value Reference Range Interpretation Comments Segs (test code = Segs) 72.2 45.0-75.0 [facility] GreenvilleHfaaflcOIDJJMDSWH9141-92-42 04:12:00 Test Item Value Reference Range Interpretation Comments Lymphocytes (test code = Lymphocytes) 16.2 20.0-40.0 [facility] GreenvilleJqocqlsJXYHIFIGBL6938-66-08 04:12:00 Test Item Value Reference Range Interpretation Comments Monocytes (test code = Monocytes) 8.0 2.0-12.0 [place] 796562-06-28 04:12:00 Test Item Value Reference Range Interpretation Comments Eosinophils (test code = 2.7 See_Comment [A utomated message] The Eosinophils) system which ge nerated this result tra nsmitted reference range : <=4.0. The reference r samantha was not used to int erpret this result as normal/abnormal . [place] 796562-06-28 04:12:00 Test Item Value Reference Range Interpretation Comments Basophils (test code = 0.9 See_Comment [Aut omated message] The Basophils) system which ge nerated this result tra nsmitted reference range : <=1.0. The reference r samantha was not used to int erpret this result as normal/abnormal . [facility] GreenvilleYtytoprJCOMYGGQDC6834-54-02 04:12:00 Test Item Value Reference Range Interpretation Comments Neutrophils # (test code = Neutrophils 2.9 1.5-8.1 #) [place] 796562-06-28 04:12:00 Test Item Value Reference Range Interpretation Comments Lymphocytes # (test code = Lymphocytes 0.7 1.0-5.5 #) [facility] GreenvilleAkgojuhVEPQOIKLKX2466-54-34 04:12:00 Test Item Value Reference Range Interpretation Comments Monocytes # (test code 0.3 See_Comment [Aut omated message] The = Monocytes #) system which generated this result tra nsmitted reference range : <=0.8. The reference r samantha was not used to int erpret this result as normal/abnormal . [facility] GreenvilleWuwmrfnISXMMUTIET6057-88-77 04:12:00 Test Item Value Reference Range Interpretation Comments Eosinophils # (test code 0.1 See_Comment [A utomated message] The = Eosinophils #) system whic h generated this result tra nsmitted reference range : <=0.5. The reference r samantha was not used to int erpret this result as normal/abnormal . [facility] GreenvilleAjfxbywIHKECXOJEX0237-12-52 04:12:00 Test Item Value Reference Range Interpretation Comments Anisocyte (test code = 1+ *ABN*(11/24/21 Anisocyte) 11:12 PM) [place] 796562-06-28 04:12:00 Test Item Value Reference Range Interpretation Comments Macrocyte (test code = 1+ *ABN*(11/24/21 Macrocyte) 11:12 PM) [facility]Yvi[facility]bpFKYCOPBEBC9764[facility] 04:12:00 Test Item Value Reference Range Interpretation Comments Microcyte (test code = 1+ *ABN*(11/24/21 Microcyte) 11:12 PM) [facility] [employer] UYHZFYK5280-74-78 04:12:00 Test Item Value Reference Range Interpretation Comments ABO/Rh (test code = ABO/Rh) AB POS [facility] [employer] GJYSLVO2829-63-54 04:12:00 Test Item Value Reference Range Interpretation Comments Antibody Scrn (test Negative (11/24/21 code = Antibody Scrn) 11:12 PM) [facility] [employer] GUCJXMY3863-88-39 04:12:00 Test Item Value Reference Range Interpretation Comments Total CK (test code = Total CK) 86 12-[address] [facility] [employer] INVSGRM2638-57-56 04:12:00 Test Item Value Reference Range Interpretation Comments HS Troponin I (test code = HS Troponin 316 I) [facility]2022-06-28 04:12:00 Test Item Value Reference Range Interpretation Comments Glucose Lvl (test code = Glucose Lvl) 261 70-[address] [facility] [employer]2022-06-28 04:12:00 Test Item Value Reference Range Interpretation Comments BUN (test code = BUN) 60 7-[address] [facility] [employer]2022-06-28 04:12:00 Test Item Value Reference Range Interpretation Comments Creatinine Lvl (test code = Creatinine 8.49 0.50-1.40 Lvl) [facility] [employer]2022-06-28 04:12:00 Test Item Value Reference Range Interpretation Comments Sodium Lvl (test code = Sodium Lvl) 133 135-[address] [facility] [employer]2022-06-28 04:12:00 Test Item Value Reference Range Interpretation Comments Potassium Lvl (test code = Potassium 4.9 3.5-5.1 Lvl) [facility]2022-06-28 04:12:00 Test Item Value Reference Range Interpretation Comments Chloride Lvl (test code = Chloride Lvl) 93 95-[address] [facility] [employer]2022-06-28 04:12:00 Test Item Value Reference Range Interpretation Comments CO2 (test code = CO2) 31 24-[address] [facility] [employer]2022-06-28 04:12:00 Test Item Value Reference Range Interpretation Comments Calcium Lvl (test code = Calcium Lvl) 9.1 8.5-10.5 [place] 509392-06-28 04:12:00 Test Item Value Reference Range Interpretation Comments Total Protein (test code = Total 6.8 6.4-8.4 Protein) [place] 509392-06-28 04:12:00 Test Item Value Reference Range Interpretation Comments Albumin Lvl (test code = Albumin Lvl) 2.5 3.5-5.0 [facility] [id number] 04:12:00 Test Item Value Reference Range Interpretation Comments ALT (test code = ALT) 51 See_Comment [Auto mated message] The system which ge nerated this result transmit swathi reference range : <=65. The reference range was not used to interpr et this result as deny l/abnormal. [facility] [id number] 04:12:00 Test Item Value Reference Range Interpretation Comments AST (test code = AST) 36 See_Comment [Auto mated message] The system which ge nerated this result transmit swathi reference range : <=37. The reference range was not used to interpr et this result as deny l/abnormal. [facility] [id number] 04:12:00 Test Item Value Reference Range Interpretation Comments Alk Phos (test code = Alk Phos) 383 39-136 [facility] [id number] 04:12:00 Test Item Value Reference Range Interpretation Comments Bili Total (test code = Bili Total) 1.1 0.2-1.3 [facility] [id number] 04:12:00 Test Item Value Reference Range Interpretation Comments AGAP (test code = AGAP) 13.9 10.0-20.0 [facility] [id number] 04:12:00 Test Item Value Reference Range Interpretation Comments B/C Ratio (test code = B/C Ratio) 7 1 6-25 [facility] [id number] 04:12:00 Test Item Value Reference Range Interpretation Comments Globulin (test code = Globulin) 4.3 2.7-4.2 [facility] [id number] 04:12:00 Test Item Value Reference Range Interpretation Comments A/G Ratio (test code = A/G Ratio) 0.6 1 0.7-1.6 [facility] [id number] 04:12:00 Test Item Value Reference Range Interpretation Comments eGFR (test code = eGFR) 5 [facility] EJZKH1472-79-90 04:12:00 Test Item Value Reference Range Interpretation Comments Procalcitonin Lvl (test 0.69 See_Comment [Au tomated message] code = Procalcitonin Lvl) Th e system which generated this result transmitted ref erence range: <=0.10. The reference range was not used to interpr et this result as normal/abnormal . [place] 796562-06-28 04:12:00 Test Item Value Reference Range Interpretation Comments WBC (test code = WBC) 4.1 3.7-10.4 [place] 796562-06-28 04:12:00 Test Item Value Reference Range Interpretation Comments RBC (test code = RBC) 1.78 4.70-6.10 [place] 796562-06-28 04:12:00 Test Item Value Reference Range Interpretation Comments Hgb (test code = Hgb) 6.5 14.0-18.0 [place] 796562-06-28 04:12:00 Test Item Value Reference Range Interpretation Comments Hct (test code = Hct) 19.5 42.0-54.0 [place] 796562-06-28 04:12:00 Test Item Value Reference Range Interpretation Comments MCV (test code = MCV) 110.0 80.0-94.0 [place] 796562-06-28 04:12:00 Test Item Value Reference Range Interpretation Comments MCH (test code = MCH) 36.5 pg 27.0-31.0 [facility] GreenvilleJvccdumKDWIROVNPJ3466-76-29 04:12:00 Test Item Value Reference Range Interpretation Comments MCHC (test code = MCHC) 33.2 32.0-36.0 [facility] GreenvilleObnavuxMSGNNKTKUW8688-37-50 04:12:00 Test Item Value Reference Range Interpretation Comments RDW (test code = RDW) 19.0 11.5-14.5 [place] 796562-06-28 04:12:00 Test Item Value Reference Range Interpretation Comments Platelet (test code = Platelet) 180 133-450 [facility] GreenvilleUvrikqdHHUZNFJLYG4553-68-20 04:12:00 Test Item Value Reference Range Interpretation Comments MPV (test code = MPV) 8.3 7.4-10.4 [place] 796562-06-28 04:12:00 Test Item Value Reference Range Interpretation Comments PTT (test code = PTT) 45.4 s 22.9-35.8 [place] 796562-06-28 04:12:00 Test Item Value Reference Range Interpretation Comments PT (test code = PT) 19.1 s 12.0-14.7 [place] [address]-06-28 04:12:00 Test Item Value Reference Range Interpretation Comments INR (test code = INR) 1.62 1 0.85-1.17 [place] 796562-06-28 04:12:00 Test Item Value Reference Range Interpretation Comments RBC Morph (test code = See Note (11/24/21 RBC Morph) 11:12 PM) [place] 796562-06-28 04:12:00 Test Item Value Reference Range Interpretation Comments Plt Morph (test code = Normal (11/24/21 11:12 Plt Morph) PM) [facility] GreenvilleLwdsjzgFIJJTIJUJS7721-89-36 04:12:00 Test Item Value Reference Range Interpretation Comments Segs (test code = Segs) 72.2 45.0-75.0 [facility] GreenvilleWajmlwySKMEFXXVDA9769-39-03 04:12:00 Test Item Value Reference Range Interpretation Comments Lymphocytes (test code = Lymphocytes) 16.2 20.0-40.0 [place] 796562-06-28 04:12:00 Test Item Value Reference Range Interpretation Comments Monocytes (test code = Monocytes) 8.0 2.0-12.0 [place] [address]-06-28 04:12:00 Test Item Value Reference Range Interpretation Comments Eosinophils (test code = 2.7 See_Comment [A utomated message] The Eosinophils) system which ge nerated this result tra nsmitted reference range : <=4.0. The reference r samantha was not used to int erpret this result as normal/abnormal . [facility] GreenvilleQgbbyfmJBEUAOTVYX2221-25-52 04:12:00 Test Item Value Reference Range Interpretation Comments Basophils (test code = 0.9 See_Comment [Aut omated message] The Basophils) system which ge nerated this result tra nsmitted reference range : <=1.0. The reference r samantha was not used to int erpret this result as normal/abnormal . [facility] GreenvilleWpqotitVBZBXVWRAL3348-71-37 04:12:00 Test Item Value Reference Range Interpretation Comments Neutrophils # (test code = Neutrophils 2.9 1.5-8.1 #) [facility] GreenvilleWesaqfsZUOUUJYMBE0454-81-35 04:12:00 Test Item Value Reference Range Interpretation Comments Lymphocytes # (test code = Lymphocytes 0.7 1.0-5.5 #) [facility] GreenvilleLsllxaeQUQEFOPCVQ2127-25-69 04:12:00 Test Item Value Reference Range Interpretation Comments Monocytes # (test code 0.3 See_Comment [Aut omated message] The = Monocytes #) system which generated this result tra nsmitted reference range : <=0.8. The reference r samantha was not used to int erpret this result as normal/abnormal . [facility] GreenvilleYypgbndFGEQUUUKYJ6124-85-79 04:12:00 Test Item Value Reference Range Interpretation Comments Eosinophils # (test code 0.1 See_Comment [A utomated message] The = Eosinophils #) system whic h generated this result tra nsmitted reference range : <=0.5. The reference r samantha was not used to int erpret this result as normal/abnormal . [facility] GreenvilleZbcenjuMLDLMVUKCP5167-49-99 04:12:00 Test Item Value Reference Range Interpretation Comments Anisocyte (test code = 1+ *ABN*(11/24/21 Anisocyte) 11:12 PM) [facility] GreenvilleHpnkgdeJCIZWRQDZC2601-47-52 04:12:00 Test Item Value Reference Range Interpretation Comments Macrocyte (test code = 1+ *ABN*(11/24/21 Macrocyte) 11:12 PM) [facility] GreenvilleNbkxejyRBDBJDXGLZ7039-94-79 04:12:00 Test Item Value Reference Range Interpretation Comments Microcyte (test code = 1+ *ABN*(11/24/21 Microcyte) 11:12 PM) [facility] [id number] 04:12:00 Test Item Value Reference Range Interpretation Comments ABO/Rh (test code = ABO/Rh) AB POS [facility] [id number] 04:12:00 Test Item Value Reference Range Interpretation Comments Antibody Scrn (test Negative (11/24/21 code = Antibody Scrn) 11:12 PM) [facility] HospitalScubaTribeB[facility] [id number] 04:12:00 Test Item Value Reference Range Interpretation Comments Total CK (test code = Total CK) 86 12-191 [facility] [id number] 04:12:00 Test Item Value Reference Range Interpretation Comments HS Troponin I (test code = HS Troponin 316 I) [facility] [id number] 04:12:00 Test Item Value Reference Range Interpretation Comments Glucose Lvl (test code = Glucose Lvl) 261 70-99 [facility] [id number] 04:12:00 Test Item Value Reference Range Interpretation Comments BUN (test code = BUN) 60 7-22 [facility] [id number] 04:12:00 Test Item Value Reference Range Interpretation Comments Creatinine Lvl (test code = Creatinine 8.49 0.50-1.40 Lvl) [facility] [id number] 04:12:00 Test Item Value Reference Range Interpretation Comments Sodium Lvl (test code = Sodium Lvl) 133 135-145 [facility] [id number] 04:12:00 Test Item Value Reference Range Interpretation Comments Potassium Lvl (test code = Potassium 4.9 3.5-5.1 Lvl) [facility] [id number] 04:12:00 Test Item Value Reference Range Interpretation Comments Chloride Lvl (test code = Chloride Lvl) 93 95-109 [facility] [id number] 04:12:00 Test Item Value Reference Range Interpretation Comments CO2 (test code = CO2) 31 24-32 [facility] CenterPlay[facility] [id number] 04:12:00 Test Item Value Reference Range Interpretation Comments Calcium Lvl (test code = Calcium Lvl) 9.1 8.5-10.5 [facility] [id number] 04:12:00 Test Item Value Reference Range Interpretation Comments Total Protein (test code = Total 6.8 6.4-8.4 Protein) [facility] CenterPlay[facility] [id number] 04:12:00 Test Item Value Reference Range Interpretation Comments Albumin Lvl (test code = Albumin Lvl) 2.5 3.5-5.0 [facility] [id number] 04:12:00 Test Item Value Reference Range Interpretation Comments ALT (test code = ALT) 51 See_Comment [Auto mated message] The system which ge nerated this result transmit swathi reference range : <=65. The reference range was not used to interpr et this result as deny l/abnormal. [facility] [employer] [id number] 04:12:00 Test Item Value Reference Range Interpretation Comments AST (test code = AST) 36 See_Comment [Auto mated message] The system which ge nerated this result transmit swathi reference range : <=37. The reference range was not used to interpr et this result as deny l/abnormal. [facility] [employer] [id number] 04:12:00 Test Item Value Reference Range Interpretation Comments Alk Phos (test code = Alk Phos) 383 39-[address] [facility] [employer] [id number] 04:12:00 Test Item Value Reference Range Interpretation Comments Bili Total (test code = Bili Total) 1.1 0.2-1.[address] [facility] [employer] [id number] 04:12:00 Test Item Value Reference Range Interpretation Comments AGAP (test code = AGAP) 13.9 10.0-20.[address] [facility] [employer] [id number] 04:12:00 Test Item Value Reference Range Interpretation Comments B/C Ratio (test code = B/C Ratio) 7 1 6-[address] [facility] [employer] [id number] 04:12:00 Test Item Value Reference Range Interpretation Comments Globulin (test code = Globulin) 4.3 2.7-4.[address] [facility] [employer] [id number] 04:12:00 Test Item Value Reference Range Interpretation Comments A/G Ratio (test code = A/G Ratio) 0.6 1 0.7-1.[address] [facility] [employer] [id number] 04:12:00 Test Item Value Reference Range Interpretation Comments eGFR (test code = eGFR) [address] [facility] [employer] [id number] 04:12:00 Test Item Value Reference Range Interpretation Comments Procalcitonin Lvl (test 0.69 See_Comment [Au tomated message] code = Procalcitonin Lvl) Th e system which generated this result transmitted ref erence range: <=0.10. The reference range was not used to interpr et this result as normal/abnormal . [place] 796562-06-28 04:12:00 Test Item Value Reference Range Interpretation Comments WBC (test code = WBC) 4.1 3.7-10.4 [place] 796562-06-28 04:12:00 Test Item Value Reference Range Interpretation Comments RBC (test code = RBC) 1.78 4.70-6.10 [place] [address]-06-28 04:12:00 Test Item Value Reference Range Interpretation Comments Hgb (test code = Hgb) 6.5 14.0-18.0 [place] [address]-06-28 04:12:00 Test Item Value Reference Range Interpretation Comments Hct (test code = Hct) 19.5 42.0-54.0 [place] [address]-06-28 04:12:00 Test Item Value Reference Range Interpretation Comments MCV (test code = MCV) 110.0 80.0-94.0 [place] [address]-06-28 04:12:00 Test Item Value Reference Range Interpretation Comments MCH (test code = MCH) 36.5 pg 27.0-31.0 [place] [address]-06-28 04:12:00 Test Item Value Reference Range Interpretation Comments MCHC (test code = MCHC) 33.2 32.0-36.0 [place] [address]-06-28 04:12:00 Test Item Value Reference Range Interpretation Comments RDW (test code = RDW) 19.0 11.5-14.5 [place] [address]-06-28 04:12:00 Test Item Value Reference Range Interpretation Comments Platelet (test code = Platelet) 180 133-450 [place] 796562-06-28 04:12:00 Test Item Value Reference Range Interpretation Comments MPV (test code = MPV) 8.3 7.4-10.4 [place] [address]-06-28 04:12:00 Test Item Value Reference Range Interpretation Comments PTT (test code = PTT) 45.4 s 22.9-35.8 [place] [address]-06-28 04:12:00 Test Item Value Reference Range Interpretation Comments PT (test code = PT) 19.1 s 12.0-14.7 [facility]villePoqaumkDQXRKJHIPT4243-60-41 04:12:00 Test Item Value Reference Range Interpretation Comments INR (test code = INR) 1.62 1 0.85-1.17 [facility] GreenvilleUyjogczGYXVXSJYQT9209-25-39 04:12:00 Test Item Value Reference Range Interpretation Comments RBC Morph (test code = See Note (11/24/21 RBC Morph) 11:12 PM) [facility] GreenvilleNmnlzdpVHUDSSVSGR8713-11-67 04:12:00 Test Item Value Reference Range Interpretation Comments Plt Morph (test code = Normal (11/24/21 11:12 Plt Morph) PM) [facility] GreenvilleKlrdcsmGHGDCTRIXU7216-74-54 04:12:00 Test Item Value Reference Range Interpretation Comments Segs (test code = Segs) 72.2 45.0-75.0 [place] 796562-06-28 04:12:00 Test Item Value Reference Range Interpretation Comments Lymphocytes (test code = Lymphocytes) 16.2 20.0-40.0 [facility] GreenvilleQoteiimDYNVWOGTVZ9184-28-73 04:12:00 Test Item Value Reference Range Interpretation Comments Monocytes (test code = Monocytes) 8.0 2.0-12.0 [facility] GreenvilleJjwfoitLISGLUAHSH5609-07-51 04:12:00 Test Item Value Reference Range Interpretation Comments Eosinophils (test code = 2.7 See_Comment [A utomated message] The Eosinophils) system which ge nerated this result tra nsmitted reference range : <=4.0. The reference r samantha was not used to int erpret this result as normal/abnormal . [facility] GreenvilleCdxgjjzFQYZMUBNMR0020-41-19 04:12:00 Test Item Value Reference Range Interpretation Comments Basophils (test code = 0.9 See_Comment [Aut omated message] The Basophils) system which ge nerated this result tra nsmitted reference range : <=1.0. The reference r samantha was not used to int erpret this result as normal/abnormal . [facility] GreenvilleHjbrnzeNDLYGKFRTB6445-06-85 04:12:00 Test Item Value Reference Range Interpretation Comments Neutrophils # (test code = Neutrophils 2.9 1.5-8.1 #) [facility] GreenvilleEycfuicBRRXRXNNTN5534-50-44 04:12:00 Test Item Value Reference Range Interpretation Comments Lymphocytes # (test code = Lymphocytes 0.7 1.0-5.5 #) [facility] CenterQcbomizFCZOJFDKXZ6878-75-79 04:12:00 Test Item Value Reference Range Interpretation Comments Monocytes # (test code 0.3 See_Comment [Aut omated message] The = Monocytes #) system which generated this result tra nsmitted reference range : <=0.8. The reference r samantha was not used to int erpret this result as normal/abnormal . [facility] CenterZlcftvnQUTRCPOZHA7093-77-84 04:12:00 Test Item Value Reference Range Interpretation Comments Eosinophils # (test code 0.1 See_Comment [A utomated message] The = Eosinophils #) system whic h generated this result tra nsmitted reference range : <=0.5. The reference r samantha was not used to int erpret this result as normal/abnormal . [facility] CenterZqtqteeYKLRFPOHLF3634-45-75 04:12:00 Test Item Value Reference Range Interpretation Comments Anisocyte (test code = 1+ *ABN*(11/24/21 Anisocyte) 11:12 PM) [facility] CenterKaqvlejFBRYENHTSY5692-34-38 04:12:00 Test Item Value Reference Range Interpretation Comments Macrocyte (test code = 1+ *ABN*(11/24/21 Macrocyte) 11:12 PM) [facility] HospitalSdwwygaCTOUFKKJSN5729-06-42 04:12:00 Test Item Value Reference Range Interpretation Comments Microcyte (test code = 1+ *ABN*(11/24/21 Microcyte) 11:12 PM) [facility] HospitalJumpCam WFCKSQM1097-64-06 04:12:00 Test Item Value Reference Range Interpretation Comments ABO/Rh (test code = ABO/Rh) AB POS [facility] HospitalJ[facility] GIIAWNX9715-19-58 04:12:00 Test Item Value Reference Range Interpretation Comments Antibody Scrn (test Negative (11/24/21 code = Antibody Scrn) 11:12 PM) [facility] HospitalOdyssey Thera [id number] 04:12:00 Test Item Value Reference Range Interpretation Comments Total CK (test code = Total CK) 86 12-191 [facility] Hospital[facility] [id number] 04:12:00 Test Item Value Reference Range Interpretation Comments HS Troponin I (test code = HS Troponin 316 I) [facility] HospitalS[facility] [id number] 04:12:00 Test Item Value Reference Range Interpretation Comments Glucose Lvl (test code = Glucose Lvl) 261 70-99 [place] 509392-06-28 04:12:00 Test Item Value Reference Range Interpretation Comments BUN (test code = BUN) 60 7-22 [place] 509392-06-28 04:12:00 Test Item Value Reference Range Interpretation Comments Creatinine Lvl (test code = Creatinine 8.49 0.50-1.40 Lvl) [place] 509392-06-28 04:12:00 Test Item Value Reference Range Interpretation Comments Sodium Lvl (test code = Sodium Lvl) 133 135-145 [place] 509392-06-28 04:12:00 Test Item Value Reference Range Interpretation Comments Potassium Lvl (test code = Potassium 4.9 3.5-5.1 Lvl) [place] 509392-06-28 04:12:00 Test Item Value Reference Range Interpretation Comments Chloride Lvl (test code = Chloride Lvl) 93 95-109 [place] 509392-06-28 04:12:00 Test Item Value Reference Range Interpretation Comments CO2 (test code = CO2) 31 24-32 [place] 509392-06-28 04:12:00 Test Item Value Reference Range Interpretation Comments Calcium Lvl (test code = Calcium Lvl) 9.1 8.5-10.5 [place] 509392-06-28 04:12:00 Test Item Value Reference Range Interpretation Comments Total Protein (test code = Total 6.8 6.4-8.4 Protein) [place] 509392-06-28 04:12:00 Test Item Value Reference Range Interpretation Comments Albumin Lvl (test code = Albumin Lvl) 2.5 3.5-5.0 [place] 509392-06-28 04:12:00 Test Item Value Reference Range Interpretation Comments ALT (test code = ALT) 51 See_Comment [Auto mated message] The system which ge nerated this result transmit swathi reference range : <=65. The reference range was not used to interpr et this result as deny l/abnormal. [place] 509392-06-28 04:12:00 Test Item Value Reference Range Interpretation Comments AST (test code = AST) 36 See_Comment [Auto mated message] The system which ge nerated this result transmit swathi reference range : <=37. The reference range was not used to interpr et this result as deny l/abnormal. [facility] HospitalS[facility] [id number] 04:12:00 Test Item Value Reference Range Interpretation Comments Alk Phos (test code = Alk Phos) 383 39-136 [place] 509392-06-28 04:12:00 Test Item Value Reference Range Interpretation Comments Bili Total (test code = Bili Total) 1.1 0.2-1.3 [place] 509392-06-28 04:12:00 Test Item Value Reference Range Interpretation Comments AGAP (test code = AGAP) 13.9 10.0-20.0 [facility] HospitalS[facility] [id number] 04:12:00 Test Item Value Reference Range Interpretation Comments B/C Ratio (test code = B/C Ratio) 7 1 6-25 [place] 509392-06-28 04:12:00 Test Item Value Reference Range Interpretation Comments Globulin (test code = Globulin) 4.3 2.7-4.2 [facility] CenterPlayground Energy [id number] 04:12:00 Test Item Value Reference Range Interpretation Comments A/G Ratio (test code = A/G Ratio) 0.6 1 0.7-1.6 [facility] HospitalFlynnLANCE VILLE [address]24AZXCN4713-20-54 04:12:00 Test Item Value Reference Range Interpretation Comments eGFR (test code = eGFR) 5 [place] 509392-06-28 04:12:00 Test Item Value Reference Range Interpretation Comments Procalcitonin Lvl (test 0.69 See_Comment [Au tomated message] code = Procalcitonin Lvl) e system which generated this result transmitted ref erence range: <=0.10. The reference range was not used to interpr et this result as normal/abnormal . [facility] CenterKblykxqUWRSXHUWAL0448-92-63 04:12:00 Test Item Value Reference Range Interpretation Comments WBC (test code = WBC) 4.1 3.7-10.4 [place] 796562-06-28 04:12:00 Test Item Value Reference Range Interpretation Comments RBC (test code = RBC) 1.78 4.70-6.10 [place] 796562-06-28 04:12:00 Test Item Value Reference Range Interpretation Comments Hgb (test code = Hgb) 6.5 14.0-18.0 [facility] GreenvilleGladfpiOHXHLJGLLE4082-66-85 04:12:00 Test Item Value Reference Range Interpretation Comments Hct (test code = Hct) 19.5 42.0-54.0 [facility] GreenvilleWszjjsfXQDXFCGNPX7700-48-14 04:12:00 Test Item Value Reference Range Interpretation Comments MCV (test code = MCV) 110.0 80.0-94.0 [facility] GreenvilleJeukcdeGUCPDZCWWA6585-43-69 04:12:00 Test Item Value Reference Range Interpretation Comments MCH (test code = MCH) 36.5 pg 27.0-31.0 [facility] GreenvilleHeuqsvsNQIVSBYKAC8230-57-78 04:12:00 Test Item Value Reference Range Interpretation Comments MCHC (test code = MCHC) 33.2 32.0-36.0 [facility] GreenvilleBzrfuxoPRSDEHQTGF1896-42-42 04:12:00 Test Item Value Reference Range Interpretation Comments RDW (test code = RDW) 19.0 11.5-14.5 [facility] GreenvilleXgjdgczBEXPKLUODI6693-73-80 04:12:00 Test Item Value Reference Range Interpretation Comments Platelet (test code = Platelet) 180 133-450 [facility] GreenvilleOvoxoqxBRHFXETHAI0344-75-07 04:12:00 Test Item Value Reference Range Interpretation Comments MPV (test code = MPV) 8.3 7.4-10.4 [facility] GreenvilleWrnwbagSCBYWZGXIF5746-43-52 04:12:00 Test Item Value Reference Range Interpretation Comments PTT (test code = PTT) 45.4 s 22.9-35.8 [facility] GreenvilleHjqmpgmGXILBZARNL9612-80-84 04:12:00 Test Item Value Reference Range Interpretation Comments PT (test code = PT) 19.1 s 12.0-14.7 [place] 796562-06-28 04:12:00 Test Item Value Reference Range Interpretation Comments INR (test code = INR) 1.62 1 0.85-1.17 [facility] GreenvilleLpbbchvAHRCBONTWV0163-62-75 04:12:00 Test Item Value Reference Range Interpretation Comments RBC Morph (test code = See Note (11/24/21 RBC Morph) 11:12 PM) [place] 796562-06-28 04:12:00 Test Item Value Reference Range Interpretation Comments Plt Morph (test code = Normal (11/24/21 11:12 Plt Morph) PM) [place] 796562-06-28 04:12:00 Test Item Value Reference Range Interpretation Comments Segs (test code = Segs) 72.2 45.0-75.0 [place] 796562-06-28 04:12:00 Test Item Value Reference Range Interpretation Comments Lymphocytes (test code = Lymphocytes) 16.2 20.0-40.0 [place] 796562-06-28 04:12:00 Test Item Value Reference Range Interpretation Comments Monocytes (test code = Monocytes) 8.0 2.0-12.0 [place] 796562-06-28 04:12:00 Test Item Value Reference Range Interpretation Comments Eosinophils (test code = 2.7 See_Comment [A utomated message] The Eosinophils) system which ge nerated this result tra nsmitted reference range : <=4.0. The reference r samantha was not used to int erpret this result as normal/abnormal . [place] 796562-06-28 04:12:00 Test Item Value Reference Range Interpretation Comments Basophils (test code = 0.9 See_Comment [Aut omated message] The Basophils) system which ge nerated this result tra nsmitted reference range : <=1.0. The reference r samantha was not used to int erpret this result as normal/abnormal . [facility] GreenvilleUcxeuvzNFWUTZKVFD1657-86-92 04:12:00 Test Item Value Reference Range Interpretation Comments Neutrophils # (test code = Neutrophils 2.9 1.5-8.1 #) [place] 796562-06-28 04:12:00 Test Item Value Reference Range Interpretation Comments Lymphocytes # (test code = Lymphocytes 0.7 1.0-5.5 #) [place] [address]-06-28 04:12:00 Test Item Value Reference Range Interpretation Comments Monocytes # (test code 0.3 See_Comment [Aut omated message] The = Monocytes #) system which generated this result tra nsmitted reference range : <=0.8. The reference r samantha was not used to int erpret this result as normal/abnormal . [place] 796562-06-28 04:12:00 Test Item Value Reference Range Interpretation Comments Eosinophils # (test code 0.1 See_Comment [A utomated message] The = Eosinophils #) system whic h generated this result tra nsmitted reference range : <=0.5. The reference r samantha was not used to int erpret this result as normal/abnormal . [facility] HospitalLoeydbcWFEPZNIBQP7238-43-17 04:12:00 Test Item Value Reference Range Interpretation Comments Anisocyte (test code = 1+ *ABN*(11/24/21 Anisocyte) 11:12 PM) [facility] HospitalWlfaxtbHREPAGOEEV5395-58-92 04:12:00 Test Item Value Reference Range Interpretation Comments Macrocyte (test code = 1+ *ABN*(11/24/21 Macrocyte) 11:12 PM) [facility] HospitalIowhcwmPKLCUUGJOU7923-10-23 04:12:00 Test Item Value Reference Range Interpretation Comments Microcyte (test code = 1+ *ABN*(11/24/21 Microcyte) 11:12 PM) [facility] [employer] [id number] 04:12:00 Test Item Value Reference Range Interpretation Comments ABO/Rh (test code = ABO/Rh) AB POS [facility] [employer] JTONVOM1632-03-09 04:12:00 Test Item Value Reference Range Interpretation Comments Antibody Scrn (test Negative (11/24/21 code = Antibody Scrn) 11:12 PM) [facility] [employer] [id number] 04:12:00 Test Item Value Reference Range Interpretation Comments Total CK (test code = Total CK) 86 12-191 [facility] HospitalOd[facility] The[facility] HBPMHID8486-49-09 04:12:00 Test Item Value Reference Range Interpretation Comments HS Troponin I (test code = HS Troponin 316 I) [facility] [employer]2022-06-28 04:12:00 Test Item Value Reference Range Interpretation Comments Glucose Lvl (test code = Glucose Lvl) 261 70-[address] [facility] [employer]2022-06-28 04:12:00 Test Item Value Reference Range Interpretation Comments BUN (test code = BUN) 60 7-[address] [facility] [employer]2022-06-28 04:12:00 Test Item Value Reference Range Interpretation Comments Creatinine Lvl (test code = Creatinine 8.49 0.50-1.40 Lvl) [facility] [employer]2022-06-28 04:12:00 Test Item Value Reference Range Interpretation Comments Sodium Lvl (test code = Sodium Lvl) 133 135-145 [place] 509392-06-28 04:12:00 Test Item Value Reference Range Interpretation Comments Potassium Lvl (test code = Potassium 4.9 3.5-5.1 Lvl) [place] 509392-06-28 04:12:00 Test Item Value Reference Range Interpretation Comments Chloride Lvl (test code = Chloride Lvl) 93 95-109 [place] 509392-06-28 04:12:00 Test Item Value Reference Range Interpretation Comments CO2 (test code = CO2) 31 24-32 [place] [address]-06-28 04:12:00 Test Item Value Reference Range Interpretation Comments Calcium Lvl (test code = Calcium Lvl) 9.1 8.5-10.5 [place] 509392-06-28 04:12:00 Test Item Value Reference Range Interpretation Comments Total Protein (test code = Total 6.8 6.4-8.4 Protein) [place] [address]-06-28 04:12:00 Test Item Value Reference Range Interpretation Comments Albumin Lvl (test code = Albumin Lvl) 2.5 3.5-5.0 [place] 509392-06-28 04:12:00 Test Item Value Reference Range Interpretation Comments ALT (test code = ALT) 51 See_Comment [Auto mated message] The system which ge nerated this result transmit swathi reference range : <=65. The reference range was not used to interpr et this result as deny l/abnormal. [place] 509392-06-28 04:12:00 Test Item Value Reference Range Interpretation Comments AST (test code = AST) 36 See_Comment [Auto mated message] The system which ge nerated this result transmit swathi reference range : <=37. The reference range was not used to interpr et this result as deny l/abnormal. [place] 509392-06-28 04:12:00 Test Item Value Reference Range Interpretation Comments Alk Phos (test code = Alk Phos) 383 39-136 [place] 509392-06-28 04:12:00 Test Item Value Reference Range Interpretation Comments Bili Total (test code = Bili Total) 1.1 0.2-1.3 [place] 509392-06-28 04:12:00 Test Item Value Reference Range Interpretation Comments AGAP (test code = AGAP) 13.9 10.0-20.0 [place] 509392-06-28 04:12:00 Test Item Value Reference Range Interpretation Comments B/C Ratio (test code = B/C Ratio) 7 1 6-25 [place] 509392-06-28 04:12:00 Test Item Value Reference Range Interpretation Comments Globulin (test code = Globulin) 4.3 2.7-4.2 [place] 509392-06-28 04:12:00 Test Item Value Reference Range Interpretation Comments A/G Ratio (test code = A/G Ratio) 0.6 1 0.7-1.6 [place] 509392-06-28 04:12:00 Test Item Value Reference Range Interpretation Comments eGFR (test code = eGFR) 5 [place] 509392-06-28 04:12:00 Test Item Value Reference Range Interpretation Comments Procalcitonin Lvl (test 0.69 See_Comment [Au tomated message] code = Procalcitonin Lvl) e system which generated this result transmitted ref erence range: <=0.10. The reference range was not used to interpr et this result as normal/abnormal . [place] 796562-06-28 04:12:00 Test Item Value Reference Range Interpretation Comments WBC (test code = WBC) 4.1 3.7-10.4 [place] 796562-06-28 04:12:00 Test Item Value Reference Range Interpretation Comments RBC (test code = RBC) 1.78 4.70-6.10 [place] 796562-06-28 04:12:00 Test Item Value Reference Range Interpretation Comments Hgb (test code = Hgb) 6.5 14.0-18.0 [place] 796562-06-28 04:12:00 Test Item Value Reference Range Interpretation Comments Hct (test code = Hct) 19.5 42.0-54.0 [place] 796562-06-28 04:12:00 Test Item Value Reference Range Interpretation Comments MCV (test code = MCV) 110.0 80.0-94.0 [place] 796562-06-28 04:12:00 Test Item Value Reference Range Interpretation Comments MCH (test code = MCH) 36.5 pg 27.0-31.0 [facility] SurgeryOhfkzbkGHVEUPJAKG5541-46-34 04:12:00 Test Item Value Reference Range Interpretation Comments MCHC (test code = MCHC) 33.2 32.0-36.0 [facility] SurgeryEnxslzdZNUIKSQVHH0972-55-80 04:12:00 Test Item Value Reference Range Interpretation Comments RDW (test code = RDW) 19.0 11.5-14.5 [facility] SurgeryYobcgdzAOSEFWOVXG6562-01-01 04:12:00 Test Item Value Reference Range Interpretation Comments Platelet (test code = Platelet) 180 133-450 [facility] SurgeryBshgjkjVZBLREZJPR2278-29-50 04:12:00 Test Item Value Reference Range Interpretation Comments MPV (test code = MPV) 8.3 7.4-10.4 [facility]villeXqmmmplYXZLGPCIWP1815-00-88 04:12:00 Test Item Value Reference Range Interpretation Comments PTT (test code = PTT) 45.4 s 22.9-35.8 [facility] GreenvilleLjlzzbmCMRDGOHACY5344-85-15 04:12:00 Test Item Value Reference Range Interpretation Comments PT (test code = PT) 19.1 s 12.0-14.7 [facility] SurgeryEfeclgbMQVIGUPQTJ6503-06-36 04:12:00 Test Item Value Reference Range Interpretation Comments INR (test code = INR) 1.62 1 0.85-1.17 [facility] GreenvilleNjegperISHNGCTAZU9674-82-62 04:12:00 Test Item Value Reference Range Interpretation Comments RBC Morph (test code = See Note (11/24/21 RBC Morph) 11:12 PM) [facility] GreenvilleDytaaacBWNPZZTHKZ6047-13-41 04:12:00 Test Item Value Reference Range Interpretation Comments Plt Morph (test code = Normal (11/24/21 11:12 Plt Morph) PM) [facility] GreenvilleYdcqhnxANSQPQSLGV6758-73-11 04:12:00 Test Item Value Reference Range Interpretation Comments Segs (test code = Segs) 72.2 45.0-75.0 [facility] SurgerySswkbovVVSETZYZTY9861-62-80 04:12:00 Test Item Value Reference Range Interpretation Comments Lymphocytes (test code = Lymphocytes) 16.2 20.0-40.0 [facility] QYUVYYR3876-74-41 04:12:00 Test Item Value Reference Range Interpretation Comments ABO/Rh (test code = ABO/Rh) AB POS [facility] CenterNonpareilOOD BANK ZRZNJRA6939-65-57 04:12:00 Test Item Value Reference Range Interpretation Comments Antibody Scrn (test Negative (11/24/21 code = Antibody Scrn) 11:12 PM) [facility] CenterCARBurbio.comAC VCVMNUO8554-66-81 04:12:00 Test Item Value Reference Range Interpretation Comments Total CK (test code = Total CK) 86 12-191 [facility] Medical CenterFaveeo KFEMIMX6149-95-96 04:12:00 Test Item Value Reference Range Interpretation Comments HS Troponin I (test code = HS Troponin 316 I) [facility] [id number] 04:12:00 Test Item Value Reference Range Interpretation Comments Glucose Lvl (test code = Glucose Lvl) 261 70-99 [facility] HospitalS[facility] KGDEN7901-08-69 04:12:00 Test Item Value Reference Range Interpretation Comments BUN (test code = BUN) 60 7-22 [facility] HospitalS[facility] MHEHU8191-64-25 04:12:00 Test Item Value Reference Range Interpretation Comments Creatinine Lvl (test code = Creatinine 8.49 0.50-1.40 Lvl) [facility] HospitalS[facility] LDDFW9699-30-36 04:12:00 Test Item Value Reference Range Interpretation Comments Sodium Lvl (test code = Sodium Lvl) 133 135-145 [facility] HospitalS[facility] TCWWE1758-21-22 04:12:00 Test Item Value Reference Range Interpretation Comments Potassium Lvl (test code = Potassium 4.9 3.5-5.1 Lvl) [facility] HospitalS[facility] OMEKZ8813-94-63 04:12:00 Test Item Value Reference Range Interpretation Comments Chloride Lvl (test code = Chloride Lvl) 93 95-109 [facility] CenterSjzktgnBELULOGJGA9990-55-09 04:12:00 Test Item Value Reference Range Interpretation Comments Monocytes (test code = Monocytes) 8.0 2.0-12.0 [facility] HospitalS[facility] [id number] 04:12:00 Test Item Value Reference Range Interpretation Comments CO2 (test code = CO2) 31 24-32 [facility] CenterPlayground Energy [id number] 04:12:00 Test Item Value Reference Range Interpretation Comments Calcium Lvl (test code = Calcium Lvl) 9.1 8.5-10.5 [facility] HospitalS[facility] HWKXB9027-35-35 04:12:00 Test Item Value Reference Range Interpretation Comments Total Protein (test code = Total 6.8 6.4-8.4 Protein) [place] 509392-06-28 04:12:00 Test Item Value Reference Range Interpretation Comments Albumin Lvl (test code = Albumin Lvl) 2.5 3.5-5.0 [place] 509392-06-28 04:12:00 Test Item Value Reference Range Interpretation Comments ALT (test code = ALT) 51 See_Comment [Auto mated message] The system which ge nerated this result transmit swathi reference range : <=65. The reference range was not used to interpr et this result as deny l/abnormal. [place] 509392-06-28 04:12:00 Test Item Value Reference Range Interpretation Comments AST (test code = AST) 36 See_Comment [Auto mated message] The system which ge nerated this result transmit swathi reference range : <=37. The reference range was not used to interpr et this result as deny l/abnormal. [place] 509392-06-28 04:12:00 Test Item Value Reference Range Interpretation Comments Alk Phos (test code = Alk Phos) 383 39-136 [place] 509392-06-28 04:12:00 Test Item Value Reference Range Interpretation Comments Bili Total (test code = Bili Total) 1.1 0.2-1.3 [place] 509392-06-28 04:12:00 Test Item Value Reference Range Interpretation Comments AGAP (test code = AGAP) 13.9 10.0-20.0 [place] 509392-06-28 04:12:00 Test Item Value Reference Range Interpretation Comments B/C Ratio (test code = B/C Ratio) 7 1 6-25 [facility] CenterXcbhytoPAIESJOTII1128-32-89 04:12:00 Test Item Value Reference Range Interpretation Comments Eosinophils (test code = 2.7 See_Comment [A utomated message] The Eosinophils) system which ge nerated this result tra nsmitted reference range : <=4.0. The reference r samantha was not used to int erpret this result as normal/abnormal . [facility] CenterPlay[facility] Energy [id number] 04:12:00 Test Item Value Reference Range Interpretation Comments Globulin (test code = Globulin) 4.3 2.7-4.2 [facility]2022-06-28 04:12:00 Test Item Value Reference Range Interpretation Comments A/G Ratio (test code = A/G Ratio) 0.6 1 0.7-1.6 [facility]2022-06-28 04:12:00 Test Item Value Reference Range Interpretation Comments eGFR (test code = eGFR) 5 [facility]2022-06-28 04:12:00 Test Item Value Reference Range Interpretation Comments Procalcitonin Lvl (test 0.69 See_Comment [Au tomated message] code = Procalcitonin Lvl) Th e system which generated this result transmitted ref erence range: <=0.10. The reference range was not used to interpr et this result as normal/abnormal . [facility]villePvkvnhuBQVHFGAKWI2305-74-01 04:12:00 Test Item Value Reference Range Interpretation Comments WBC (test code = WBC) 4.1 3.7-10.4 [facility]villeDzqqomlVXKDYZYYIV0562-75-42 04:12:00 Test Item Value Reference Range Interpretation Comments RBC (test code = RBC) 1.78 4.70-6.10 [facility]villeWgtfytoSJZJMGQBQY3587-45-74 04:12:00 Test Item Value Reference Range Interpretation Comments Hgb (test code = Hgb) 6.5 14.0-18.0 [facility] GreenvilleDdkiiysOHTRASMPOP1525-87-91 04:12:00 Test Item Value Reference Range Interpretation Comments Hct (test code = Hct) 19.5 42.0-54.0 [facility] GreenvilleIqinunpBPUDEGXTKJ7010-12-05 04:12:00 Test Item Value Reference Range Interpretation Comments MCV (test code = MCV) 110.0 80.0-94.0 [place] 796562-06-28 04:12:00 Test Item Value Reference Range Interpretation Comments MCH (test code = MCH) 36.5 pg 27.0-31.0 [facility] GreenvilleUfqhopaPYAKEFHJOI9531-61-83 04:12:00 Test Item Value Reference Range Interpretation Comments Basophils (test code = 0.9 See_Comment [Aut omated message] The Basophils) system which ge nerated this result tra nsmitted reference range : <=1.0. The reference r samantha was not used to int erpret this result as normal/abnormal . [facility] GreenvilleYlmwaehYYTKTFBXDZ3520-01-05 04:12:00 Test Item Value Reference Range Interpretation Comments MCHC (test code = MCHC) 33.2 32.0-36.0 [facility] GreenvilleNfmhqmaAFDOBTNUDP8708-29-82 04:12:00 Test Item Value Reference Range Interpretation Comments RDW (test code = RDW) 19.0 11.5-14.5 [facility] GreenvilleNgnyybhWFAUPIRVWD8842-08-28 04:12:00 Test Item Value Reference Range Interpretation Comments Platelet (test code = Platelet) 180 133-450 [facility] GreenvilleYswzbftIFTKSJAIIG2429-84-07 04:12:00 Test Item Value Reference Range Interpretation Comments MPV (test code = MPV) 8.3 7.4-10.4 [facility] GreenvilleApsedexFTGUVOXLGY4878-08-25 04:12:00 Test Item Value Reference Range Interpretation Comments PTT (test code = PTT) 45.4 s 22.9-35.8 [facility] GreenvilleIfywivrNHXPWJFVEF6219-76-43 04:12:00 Test Item Value Reference Range Interpretation Comments PT (test code = PT) 19.1 s 12.0-14.7 [facility] GreenvilleWstbkrlJDYKGRRHLN4097-37-96 04:12:00 Test Item Value Reference Range Interpretation Comments INR (test code = INR) 1.62 1 0.85-1.17 [facility] GreenvilleJdpkrstYRQQWJMMSB0978-12-50 04:12:00 Test Item Value Reference Range Interpretation Comments RBC Morph (test code = See Note (11/24/21 RBC Morph) 11:12 PM) [facility] GreenvilleWgnyzucZIVBLSRZNY6867-64-39 04:12:00 Test Item Value Reference Range Interpretation Comments Plt Morph (test code = Normal (11/24/21 11:12 Plt Morph) PM) [facility] GreenvilleVcfqvxoWVQVSTJVUK2350-05-08 04:12:00 Test Item Value Reference Range Interpretation Comments Segs (test code = Segs) 72.2 45.0-75.0 [facility] GreenvilleGhiwtvkWDAYYHCBLP6334-28-07 04:12:00 Test Item Value Reference Range Interpretation Comments Neutrophils # (test code = Neutrophils 2.9 1.5-8.1 #) [facility] GreenvilleBydrdqdELUFBSUZJE4799-95-36 04:12:00 Test Item Value Reference Range Interpretation Comments Lymphocytes (test code = Lymphocytes) 16.2 20.0-40.0 [place] 796562-06-28 04:12:00 Test Item Value Reference Range Interpretation Comments Monocytes (test code = Monocytes) 8.0 2.0-12.0 [facility] GreenvilleLbjzzlhNZVMSVLGHV3972-20-69 04:12:00 Test Item Value Reference Range Interpretation Comments Eosinophils (test code = 2.7 See_Comment [A utomated message] The Eosinophils) system which ge nerated this result tra nsmitted reference range : <=4.0. The reference r samantha was not used to int erpret this result as normal/abnormal . [facility] GreenvilleDhaisecAJLXPMZWTR2343-19-04 04:12:00 Test Item Value Reference Range Interpretation Comments Basophils (test code = 0.9 See_Comment [Aut omated message] The Basophils) system which ge nerated this result tra nsmitted reference range : <=1.0. The reference r samantha was not used to int erpret this result as normal/abnormal . [facility] GreenvilleVoikpybSWUGFATVBT7327-86-42 04:12:00 Test Item Value Reference Range Interpretation Comments Neutrophils # (test code = Neutrophils 2.9 1.5-8.1 #) [facility] GreenvilleCfifugjAGVJHSMKQZ4276-17-97 04:12:00 Test Item Value Reference Range Interpretation Comments Lymphocytes # (test code = Lymphocytes 0.7 1.0-5.5 #) [facility] GreenvilleWyhujkoQRTVDBCXHF9466-03-46 04:12:00 Test Item Value Reference Range Interpretation Comments Monocytes # (test code 0.3 See_Comment [Aut omated message] The = Monocytes #) system which generated this result tra nsmitted reference range : <=0.8. The reference r samantha was not used to int erpret this result as normal/abnormal . [facility] GreenvilleFazbgojEGDURHAAQY3983-43-29 04:12:00 Test Item Value Reference Range Interpretation Comments Eosinophils # (test code 0.1 See_Comment [A utomated message] The = Eosinophils #) system whic h generated this result tra nsmitted reference range : <=0.5. The reference r samantha was not used to int erpret this result as normal/abnormal . [facility] GreenvilleRzbgcutZXBFQBPPLP4186-53-92 04:12:00 Test Item Value Reference Range Interpretation Comments Anisocyte (test code = 1+ *ABN*(11/24/21 Anisocyte) 11:12 PM) [place] 796562-06-28 04:12:00 Test Item Value Reference Range Interpretation Comments Macrocyte (test code = 1+ *ABN*(11/24/21 Macrocyte) 11:12 PM) [facility] GreenvilleAjuwjskONLMVWPXIP5398-14-72 04:12:00 Test Item Value Reference Range Interpretation Comments Lymphocytes # (test code = Lymphocytes 0.7 1.0-5.5 #) [facility] GreenvilleGvhqhmtQRXWHMZPZP8783-74-82 04:12:00 Test Item Value Reference Range Interpretation Comments Microcyte (test code = 1+ *ABN*(11/24/21 Microcyte) 11:12 PM) [facility] GreenvilleRahotjhEHEYKUVHYO8813-12-40 04:12:00 Test Item Value Reference Range Interpretation Comments Monocytes # (test code 0.3 See_Comment [Aut omated message] The = Monocytes #) system which generated this result tra nsmitted reference range : <=0.8. The reference r samantha was not used to int erpret this result as normal/abnormal . [facility] GreenvilleZqgnrpcGWONVMIZRS8503-94-02 04:12:00 Test Item Value Reference Range Interpretation Comments Eosinophils # (test code 0.1 See_Comment [A utomated message] The = Eosinophils #) system whic h generated this result tra nsmitted reference range : <=0.5. The reference r samantha was not used to int erpret this result as normal/abnormal . [facility] GreenvilleKgnxpdwQQPYYHNXDZ4188-41-80 04:12:00 Test Item Value Reference Range Interpretation Comments Anisocyte (test code = 1+ *ABN*(11/24/21 Anisocyte) 11:12 PM) [facility] GreenvilleKqsvefdHQUFGDNOIZ8492-88-27 04:12:00 Test Item Value Reference Range Interpretation Comments Macrocyte (test code = 1+ *ABN*(11/24/21 Macrocyte) 11:12 PM) [facility] GreenvilleDghsmoaRGQLDWCSOD5614-15-24 04:12:00 Test Item Value Reference Range Interpretation Comments Microcyte (test code = 1+ *ABN*(11/24/21 Microcyte) 11:12 PM) [facility] BSGEPUE5237-95-09 04:12:00 Test Item Value Reference Range Interpretation Comments ABO/Rh (test code = ABO/Rh) AB POS [facility] OLSCURV8279-24-06 04:12:00 Test Item Value Reference Range Interpretation Comments Antibody Scrn (test Negative (11/24/21 code = Antibody Scrn) 11:12 PM) [facility]23[address] MediaB[facility] SDFIOPI2792-28-53 04:12:00 Test Item Value Reference Range Interpretation Comments Total CK (test code = Total CK) 86 12-191 [facility] [id number] 04:12:00 Test Item Value Reference Range Interpretation Comments HS Troponin I (test code = HS Troponin 316 I) [facility] CenterPlayground Energy [id number] 04:12:00 Test Item Value Reference Range Interpretation Comments Glucose Lvl (test code = Glucose Lvl) 261 70-99 [facility] RKNIT0117-64-77 04:12:00 Test Item Value Reference Range Interpretation Comments BUN (test code = BUN) 60 7-22 [facility]2022-06-28 04:12:00 Test Item Value Reference Range Interpretation Comments Creatinine Lvl (test code = Creatinine 8.49 0.50-1.40 Lvl) [facility]2022-06-28 04:12:00 Test Item Value Reference Range Interpretation Comments Sodium Lvl (test code = Sodium Lvl) 133 135-145 [facility] CenterPlay[facility] Energy KPUFG7745-06-01 04:12:00 Test Item Value Reference Range Interpretation Comments Potassium Lvl (test code = Potassium 4.9 3.5-5.1 Lvl) [facility]2022-06-28 04:12:00 Test Item Value Reference Range Interpretation Comments Chloride Lvl (test code = Chloride Lvl) 93 95-109 [facility]2022-06-28 04:12:00 Test Item Value Reference Range Interpretation Comments CO2 (test code = CO2) 31 24-32 [facility]2022-06-28 04:12:00 Test Item Value Reference Range Interpretation Comments Calcium Lvl (test code = Calcium Lvl) 9.1 8.5-10.5 [facility]2022-06-28 04:12:00 Test Item Value Reference Range Interpretation Comments Total Protein (test code = Total 6.8 6.4-8.4 Protein) [facility]2022-06-28 04:12:00 Test Item Value Reference Range Interpretation Comments Albumin Lvl (test code = Albumin Lvl) 2.5 3.5-5.0 [facility]annCHEM [id number] 04:12:00 Test Item Value Reference Range Interpretation Comments ALT (test code = ALT) 51 See_Comment [Auto mated message] The system which ge nerated this result transmit swathi reference range : <=65. The reference range was not used to interpr et this result as deny l/abnormal. [facility] [employer] [id number] 04:12:00 Test Item Value Reference Range Interpretation Comments AST (test code = AST) 36 See_Comment [Auto mated message] The system which ge nerated this result transmit swathi reference range : <=37. The reference range was not used to interpr et this result as deny l/abnormal. [facility] [employer] [id number] 04:12:00 Test Item Value Reference Range Interpretation Comments Alk Phos (test code = Alk Phos) 383 39-[address] [facility] [employer] [id number] 04:12:00 Test Item Value Reference Range Interpretation Comments Bili Total (test code = Bili Total) 1.1 0.2-1.[address] [facility] [employer] [id number] 04:12:00 Test Item Value Reference Range Interpretation Comments AGAP (test code = AGAP) 13.9 10.0-20.[address] [facility] [employer] [id number] 04:12:00 Test Item Value Reference Range Interpretation Comments B/C Ratio (test code = B/C Ratio) 7 1 6-[address] [facility] [employer] [id number] 04:12:00 Test Item Value Reference Range Interpretation Comments Globulin (test code = Globulin) 4.3 2.7-4.[address] [facility] [employer] [id number] 04:12:00 Test Item Value Reference Range Interpretation Comments A/G Ratio (test code = A/G Ratio) 0.6 1 0.7-1.[address] [facility] [employer] [id number] 04:12:00 Test Item Value Reference Range Interpretation Comments eGFR (test code = eGFR) [address] [facility] [employer] [id number] 04:12:00 Test Item Value Reference Range Interpretation Comments Procalcitonin Lvl (test 0.69 See_Comment [Au tomated message] code = Procalcitonin Lvl) Th e system which generated this result transmitted ref erence range: <=0.10. The reference range was not used to interpr et this result as normal/abnormal . [facility] GreenvilleLkeuzrhIVDAUYQDJM8712-61-98 04:12:00 Test Item Value Reference Range Interpretation Comments WBC (test code = WBC) 4.1 3.7-10.4 [place] 796562-06-28 04:12:00 Test Item Value Reference Range Interpretation Comments RBC (test code = RBC) 1.78 4.70-6.10 [place] 796562-06-28 04:12:00 Test Item Value Reference Range Interpretation Comments Hgb (test code = Hgb) 6.5 14.0-18.0 [place] 796562-06-28 04:12:00 Test Item Value Reference Range Interpretation Comments Hct (test code = Hct) 19.5 42.0-54.0 [place] 796562-06-28 04:12:00 Test Item Value Reference Range Interpretation Comments MCV (test code = MCV) 110.0 80.0-94.0 [place] 796562-06-28 04:12:00 Test Item Value Reference Range Interpretation Comments MCH (test code = MCH) 36.5 pg 27.0-31.0 [facility] GreenvilleTlevfzpIXVRHTGINO6645-80-19 04:12:00 Test Item Value Reference Range Interpretation Comments MCHC (test code = MCHC) 33.2 32.0-36.0 [place] 796562-06-28 04:12:00 Test Item Value Reference Range Interpretation Comments RDW (test code = RDW) 19.0 11.5-14.5 [place] 796562-06-28 04:12:00 Test Item Value Reference Range Interpretation Comments Platelet (test code = Platelet) 180 133-450 [facility] GreenvilleLqwchxtPFBDRSMLXW8960-79-15 04:12:00 Test Item Value Reference Range Interpretation Comments MPV (test code = MPV) 8.3 7.4-10.4 [place] 796562-06-28 04:12:00 Test Item Value Reference Range Interpretation Comments PTT (test code = PTT) 45.4 s 22.9-35.8 [place] 796562-06-28 04:12:00 Test Item Value Reference Range Interpretation Comments PT (test code = PT) 19.1 s 12.0-14.7 [facility] GreenvilleWwcoprvTAIIDMYMVG9230-99-01 04:12:00 Test Item Value Reference Range Interpretation Comments INR (test code = INR) 1.62 1 0.85-1.17 [facility] GreenvilleYpzpdujLRYHFQNVSV9657-59-03 04:12:00 Test Item Value Reference Range Interpretation Comments RBC Morph (test code = See Note (11/24/21 RBC Morph) 11:12 PM) [facility] GreenvilleNyvysjfSEHBOQERCD1025-68-88 04:12:00 Test Item Value Reference Range Interpretation Comments Plt Morph (test code = Normal (11/24/21 11:12 Plt Morph) PM) [place] 796562-06-28 04:12:00 Test Item Value Reference Range Interpretation Comments Segs (test code = Segs) 72.2 45.0-75.0 [place] 796562-06-28 04:12:00 Test Item Value Reference Range Interpretation Comments Lymphocytes (test code = Lymphocytes) 16.2 20.0-40.0 [place] 796562-06-28 04:12:00 Test Item Value Reference Range Interpretation Comments Monocytes (test code = Monocytes) 8.0 2.0-12.0 [facility] GreenvilleQnwlqcjFXXFHALRNC9869-81-41 04:12:00 Test Item Value Reference Range Interpretation Comments Eosinophils (test code = 2.7 See_Comment [A utomated message] The Eosinophils) system which ge nerated this result tra nsmitted reference range : <=4.0. The reference r samantha was not used to int erpret this result as normal/abnormal . [facility] GreenvilleOdtakisJQJTSZLOAK5297-81-06 04:12:00 Test Item Value Reference Range Interpretation Comments Basophils (test code = 0.9 See_Comment [Aut omated message] The Basophils) system which ge nerated this result tra nsmitted reference range : <=1.0. The reference r samantha was not used to int erpret this result as normal/abnormal . [place] 796562-06-28 04:12:00 Test Item Value Reference Range Interpretation Comments Neutrophils # (test code = Neutrophils 2.9 1.5-8.1 #) [place] 796562-06-28 04:12:00 Test Item Value Reference Range Interpretation Comments Lymphocytes # (test code = Lymphocytes 0.7 1.0-5.5 #) [facility] CenterFrqefmzDWTASMCYEI0988-13-77 04:12:00 Test Item Value Reference Range Interpretation Comments Monocytes # (test code 0.3 See_Comment [Aut omated message] The = Monocytes #) system which generated this result tra nsmitted reference range : <=0.8. The reference r samantha was not used to int erpret this result as normal/abnormal . [facility] CenterEeehzrhUMBTTNTLAE5101-19-68 04:12:00 Test Item Value Reference Range Interpretation Comments Eosinophils # (test code 0.1 See_Comment [A utomated message] The = Eosinophils #) system whic h generated this result tra nsmitted reference range : <=0.5. The reference r samantha was not used to int erpret this result as normal/abnormal . [facility] CenterNmsxvqqCPNRFZTEUP4696-91-13 04:12:00 Test Item Value Reference Range Interpretation Comments Anisocyte (test code = 1+ *ABN*(11/24/21 Anisocyte) 11:12 PM) [facility] HospitalZahsnsmACLVNOXIFD2481-88-00 04:12:00 Test Item Value Reference Range Interpretation Comments Macrocyte (test code = 1+ *ABN*(11/24/21 Macrocyte) 11:12 PM) [facility] HospitalPlgbmqaEYMRUWPSJL1121-45-49 04:12:00 Test Item Value Reference Range Interpretation Comments Microcyte (test code = 1+ *ABN*(11/24/21 Microcyte) 11:12 PM) [facility] HospitalJumpCam [id number] 04:12:00 Test Item Value Reference Range Interpretation Comments ABO/Rh (test code = ABO/Rh) AB POS [facility] HospitalJ[facility] [id number] 04:12:00 Test Item Value Reference Range Interpretation Comments Antibody Scrn (test Negative (11/24/21 code = Antibody Scrn) 11:12 PM) [facility] HospitalOdyssey [facility] [id number] 04:12:00 Test Item Value Reference Range Interpretation Comments Total CK (test code = Total CK) 86 12-191 [facility] Hospital[facility] [id number] 04:12:00 Test Item Value Reference Range Interpretation Comments HS Troponin I (test code = HS Troponin 316 I) [facility] HospitalSfer[facility] [id number] 04:12:00 Test Item Value Reference Range Interpretation Comments Glucose Lvl (test code = Glucose Lvl) 261 70-99 [place] 509392-06-28 04:12:00 Test Item Value Reference Range Interpretation Comments BUN (test code = BUN) 60 7-22 [place] 509392-06-28 04:12:00 Test Item Value Reference Range Interpretation Comments Creatinine Lvl (test code = Creatinine 8.49 0.50-1.40 Lvl) [place] 509392-06-28 04:12:00 Test Item Value Reference Range Interpretation Comments Sodium Lvl (test code = Sodium Lvl) 133 135-145 [place] 509392-06-28 04:12:00 Test Item Value Reference Range Interpretation Comments Potassium Lvl (test code = Potassium 4.9 3.5-5.1 Lvl) [place] 509392-06-28 04:12:00 Test Item Value Reference Range Interpretation Comments Chloride Lvl (test code = Chloride Lvl) 93 95-109 [place] 509392-06-28 04:12:00 Test Item Value Reference Range Interpretation Comments CO2 (test code = CO2) 31 24-32 [place] 509392-06-28 04:12:00 Test Item Value Reference Range Interpretation Comments Calcium Lvl (test code = Calcium Lvl) 9.1 8.5-10.5 [place] 509392-06-28 04:12:00 Test Item Value Reference Range Interpretation Comments Total Protein (test code = Total 6.8 6.4-8.4 Protein) [place] 509392-06-28 04:12:00 Test Item Value Reference Range Interpretation Comments Albumin Lvl (test code = Albumin Lvl) 2.5 3.5-5.0 [place] 509392-06-28 04:12:00 Test Item Value Reference Range Interpretation Comments ALT (test code = ALT) 51 See_Comment [Auto mated message] The system which ge nerated this result transmit swathi reference range : <=65. The reference range was not used to interpr et this result as deny l/abnormal. [place] 509392-06-28 04:12:00 Test Item Value Reference Range Interpretation Comments AST (test code = AST) 36 See_Comment [Auto mated message] The system which ge nerated this result transmit wsathi reference range : <=37. The reference range was not used to interpr et this result as deny l/abnormal. [facility] CenterPlay[facility] Energy [id number] 04:12:00 Test Item Value Reference Range Interpretation Comments Alk Phos (test code = Alk Phos) 383 39-136 [place] 509392-06-28 04:12:00 Test Item Value Reference Range Interpretation Comments Bili Total (test code = Bili Total) 1.1 0.2-1.3 [place] 509392-06-28 04:12:00 Test Item Value Reference Range Interpretation Comments AGAP (test code = AGAP) 13.9 10.0-20.0 [place] 509392-06-28 04:12:00 Test Item Value Reference Range Interpretation Comments B/C Ratio (test code = B/C Ratio) 7 1 6-25 [place] 509392-06-28 04:12:00 Test Item Value Reference Range Interpretation Comments Globulin (test code = Globulin) 4.3 2.7-4.2 [place] 509392-06-28 04:12:00 Test Item Value Reference Range Interpretation Comments A/G Ratio (test code = A/G Ratio) 0.6 1 0.7-1.6 [place] 509392-06-28 04:12:00 Test Item Value Reference Range Interpretation Comments eGFR (test code = eGFR) 5 [place] 509392-06-28 04:12:00 Test Item Value Reference Range Interpretation Comments Procalcitonin Lvl (test 0.69 See_Comment [Au tomated message] code = Procalcitonin Lvl) e system which generated this result transmitted ref erence range: <=0.10. The reference range was not used to interpr et this result as normal/abnormal . [facility] CenterSioqzlqYPSEAYVRGX3506-49-52 04:12:00 Test Item Value Reference Range Interpretation Comments WBC (test code = WBC) 4.1 3.7-10.4 [place] 796562-06-28 04:12:00 Test Item Value Reference Range Interpretation Comments RBC (test code = RBC) 1.78 4.70-6.10 [place] 796562-06-28 04:12:00 Test Item Value Reference Range Interpretation Comments Hgb (test code = Hgb) 6.5 14.0-18.0 [facility]villeRwegluyBCCDKKVYUW2494-66-12 04:12:00 Test Item Value Reference Range Interpretation Comments Hct (test code = Hct) 19.5 42.0-54.0 [facility]villeAkinvgxGGPCRBLYZP1686-03-44 04:12:00 Test Item Value Reference Range Interpretation Comments MCV (test code = MCV) 110.0 80.0-94.0 [facility] GreenvilleLcoalahPXZMIWUPIL3535-19-62 04:12:00 Test Item Value Reference Range Interpretation Comments MCH (test code = MCH) 36.5 pg 27.0-31.0 [facility] GreenvilleWvsipysGUVUINLEWX1782-73-25 04:12:00 Test Item Value Reference Range Interpretation Comments MCHC (test code = MCHC) 33.2 32.0-36.0 [facility] GreenvilleCqpsxcuZXKBXAFXKM6373-86-67 04:12:00 Test Item Value Reference Range Interpretation Comments RDW (test code = RDW) 19.0 11.5-14.5 [facility] GreenvilleOzgrwqqNTUEDMMTUQ1827-82-67 04:12:00 Test Item Value Reference Range Interpretation Comments Platelet (test code = Platelet) 180 133-450 [facility] GreenvilleJvntoivBEMOGUNYQU5842-29-02 04:12:00 Test Item Value Reference Range Interpretation Comments MPV (test code = MPV) 8.3 7.4-10.4 [facility] GreenvilleIpkvvckNXFKZDHHWC3755-54-75 04:12:00 Test Item Value Reference Range Interpretation Comments PTT (test code = PTT) 45.4 s 22.9-35.8 [facility] GreenvilleZglyialJCIHEGAWNG0068-14-70 04:12:00 Test Item Value Reference Range Interpretation Comments PT (test code = PT) 19.1 s 12.0-14.7 [facility] GreenvilleYqmtijkVEPMLKWMWC6044-45-67 04:12:00 Test Item Value Reference Range Interpretation Comments INR (test code = INR) 1.62 1 0.85-1.17 [facility] GreenvilleCnguoofBULJOXGXDL8812-51-24 04:12:00 Test Item Value Reference Range Interpretation Comments RBC Morph (test code = See Note (11/24/21 RBC Morph) 11:12 PM) [facility] GreenvilleKafaynmREISOMDFTV5475-81-55 04:12:00 Test Item Value Reference Range Interpretation Comments Plt Morph (test code = Normal (11/24/21 11:12 Plt Morph) PM) [place]6562-06-28 04:12:00 Test Item Value Reference Range Interpretation Comments Segs (test code = Segs) 72.2 45.0-75.0 [place] 796562-06-28 04:12:00 Test Item Value Reference Range Interpretation Comments Lymphocytes (test code = Lymphocytes) 16.2 20.0-40.0 [place] 796562-06-28 04:12:00 Test Item Value Reference Range Interpretation Comments Monocytes (test code = Monocytes) 8.0 2.0-12.0 [place] 796562-06-28 04:12:00 Test Item Value Reference Range Interpretation Comments Eosinophils (test code = 2.7 See_Comment [A utomated message] The Eosinophils) system which ge nerated this result tra nsmitted reference range : <=4.0. The reference r samantha was not used to int erpret this result as normal/abnormal . [place] [address]-06-28 04:12:00 Test Item Value Reference Range Interpretation Comments Basophils (test code = 0.9 See_Comment [Aut omated message] The Basophils) system which ge nerated this result tra nsmitted reference range : <=1.0. The reference r samantha was not used to int erpret this result as normal/abnormal . [facility] GreenvilleYtkhtipKKZVVDKIHX2136-71-68 04:12:00 Test Item Value Reference Range Interpretation Comments Neutrophils # (test code = Neutrophils 2.9 1.5-8.1 #) [place] 796562-06-28 04:12:00 Test Item Value Reference Range Interpretation Comments Lymphocytes # (test code = Lymphocytes 0.7 1.0-5.5 #) [place] 796562-06-28 04:12:00 Test Item Value Reference Range Interpretation Comments Monocytes # (test code 0.3 See_Comment [Aut omated message] The = Monocytes #) system which generated this result tra nsmitted reference range : <=0.8. The reference r samantha was not used to int erpret this result as normal/abnormal . [place] [address]-06-28 04:12:00 Test Item Value Reference Range Interpretation Comments Eosinophils # (test code 0.1 See_Comment [A utomated message] The = Eosinophils #) system whic h generated this result tra nsmitted reference range : <=0.5. The reference r samantha was not used to int erpret this result as normal/abnormal . [facility]KfckcvwOOJKUORQSQ8906-80-42 04:12:00 Test Item Value Reference Range Interpretation Comments Anisocyte (test code = 1+ *ABN*(11/24/21 Anisocyte) 11:12 PM) [facility] HospitalHrdeujjZZRHFDKDPA5039-57-94 04:12:00 Test Item Value Reference Range Interpretation Comments Macrocyte (test code = 1+ *ABN*(11/24/21 Macrocyte) 11:12 PM) [facility] HospitalSmukphxXEQFMYHRLA8002-15-97 04:12:00 Test Item Value Reference Range Interpretation Comments Microcyte (test code = 1+ *ABN*(11/24/21 Microcyte) 11:12 PM) [facility] [employer] WIMMWSZ4332-59-93 04:12:00 Test Item Value Reference Range Interpretation Comments ABO/Rh (test code = ABO/Rh) AB POS [facility] [employer] WCRRLRZ6847-88-49 04:12:00 Test Item Value Reference Range Interpretation Comments Antibody Scrn (test Negative (11/24/21 code = Antibody Scrn) 11:12 PM) [facility] [employer] XEHVIQB2054-44-01 04:12:00 Test Item Value Reference Range Interpretation Comments Total CK (test code = Total CK) 86 12-[address] [facility] [employer] WHGVWQR3504-60-69 04:12:00 Test Item Value Reference Range Interpretation Comments HS Troponin I (test code = HS Troponin 316 I) [facility] [employer]2022-06-28 04:12:00 Test Item Value Reference Range Interpretation Comments Glucose Lvl (test code = Glucose Lvl) 261 70-99 [facility]2022-06-28 04:12:00 Test Item Value Reference Range Interpretation Comments BUN (test code = BUN) 60 7-22 [facility]2022-06-28 04:12:00 Test Item Value Reference Range Interpretation Comments Creatinine Lvl (test code = Creatinine 8.49 0.50-1.40 Lvl) [facility]2022-06-28 04:12:00 Test Item Value Reference Range Interpretation Comments Sodium Lvl (test code = Sodium Lvl) 133 135-145 [place] 509392-06-28 04:12:00 Test Item Value Reference Range Interpretation Comments Potassium Lvl (test code = Potassium 4.9 3.5-5.1 Lvl) [place] 509392-06-28 04:12:00 Test Item Value Reference Range Interpretation Comments Chloride Lvl (test code = Chloride Lvl) 93 95-109 [place] 509392-06-28 04:12:00 Test Item Value Reference Range Interpretation Comments CO2 (test code = CO2) 31 24-32 [place] 509392-06-28 04:12:00 Test Item Value Reference Range Interpretation Comments Calcium Lvl (test code = Calcium Lvl) 9.1 8.5-10.5 [place] 509392-06-28 04:12:00 Test Item Value Reference Range Interpretation Comments Total Protein (test code = Total 6.8 6.4-8.4 Protein) [place] 509392-06-28 04:12:00 Test Item Value Reference Range Interpretation Comments Albumin Lvl (test code = Albumin Lvl) 2.5 3.5-5.0 [place] 509392-06-28 04:12:00 Test Item Value Reference Range Interpretation Comments ALT (test code = ALT) 51 See_Comment [Auto mated message] The system which ge nerated this result transmit swathi reference range : <=65. The reference range was not used to interpr et this result as deny l/abnormal. [place] 509392-06-28 04:12:00 Test Item Value Reference Range Interpretation Comments AST (test code = AST) 36 See_Comment [Auto mated message] The system which ge nerated this result transmit swathi reference range : <=37. The reference range was not used to interpr et this result as deny l/abnormal. [place] 509392-06-28 04:12:00 Test Item Value Reference Range Interpretation Comments Alk Phos (test code = Alk Phos) 383 39-136 [place] 509392-06-28 04:12:00 Test Item Value Reference Range Interpretation Comments Bili Total (test code = Bili Total) 1.1 0.2-1.3 [place] 509392-06-28 04:12:00 Test Item Value Reference Range Interpretation Comments AGAP (test code = AGAP) 13.9 10.0-20.0 [place] 509392-06-28 04:12:00 Test Item Value Reference Range Interpretation Comments B/C Ratio (test code = B/C Ratio) 7 1 6-25 [place] 509392-06-28 04:12:00 Test Item Value Reference Range Interpretation Comments Globulin (test code = Globulin) 4.3 2.7-4.2 [place] 509392-06-28 04:12:00 Test Item Value Reference Range Interpretation Comments A/G Ratio (test code = A/G Ratio) 0.6 1 0.7-1.6 [place] 509392-06-28 04:12:00 Test Item Value Reference Range Interpretation Comments eGFR (test code = eGFR) 5 [place] 509392-06-28 04:12:00 Test Item Value Reference Range Interpretation Comments Procalcitonin Lvl (test 0.69 See_Comment [Au tomated message] code = Procalcitonin Lvl) Th e system which generated this result transmitted ref erence range: <=0.10. The reference range was not used to interpr et this result as normal/abnormal . [place] 796562-06-28 04:12:00 Test Item Value Reference Range Interpretation Comments WBC (test code = WBC) 4.1 3.7-10.4 [place] [address]-06-28 04:12:00 Test Item Value Reference Range Interpretation Comments RBC (test code = RBC) 1.78 4.70-6.10 [place] [address]-06-28 04:12:00 Test Item Value Reference Range Interpretation Comments Hgb (test code = Hgb) 6.5 14.0-18.0 [place] [address]-06-28 04:12:00 Test Item Value Reference Range Interpretation Comments Hct (test code = Hct) 19.5 42.0-54.0 [place] [address]-06-28 04:12:00 Test Item Value Reference Range Interpretation Comments MCV (test code = MCV) 110.0 80.0-94.0 [place] [address]-06-28 04:12:00 Test Item Value Reference Range Interpretation Comments MCH (test code = MCH) 36.5 pg 27.0-31.0 [facility]villeQhqkbquUYNYCOIGDE1842-07-16 04:12:00 Test Item Value Reference Range Interpretation Comments MCHC (test code = MCHC) 33.2 32.0-36.0 [facility] GreenvilleYykonvoFURVTSKIPL0656-18-32 04:12:00 Test Item Value Reference Range Interpretation Comments RDW (test code = RDW) 19.0 11.5-14.5 [facility] GreenvilleXydpvcaTTHJKZBUPU5318-23-80 04:12:00 Test Item Value Reference Range Interpretation Comments Platelet (test code = Platelet) 180 133-450 [facility] GreenvilleXsckabhAFRBJGVJXR1811-75-93 04:12:00 Test Item Value Reference Range Interpretation Comments MPV (test code = MPV) 8.3 7.4-10.4 [facility] GreenvilleBtzkhxnBHSLUTGDFH7124-78-92 04:12:00 Test Item Value Reference Range Interpretation Comments PTT (test code = PTT) 45.4 s 22.9-35.8 [facility] GreenvilleKlufbfvRCKEVOHXKD5720-74-57 04:12:00 Test Item Value Reference Range Interpretation Comments PT (test code = PT) 19.1 s 12.0-14.7 [facility] GreenvilleVtukgxfYAQBZGNUVJ4880-38-76 04:12:00 Test Item Value Reference Range Interpretation Comments INR (test code = INR) 1.62 1 0.85-1.17 [facility] GreenvilleXlxfhdcODSMEIOZPF7881-66-17 04:12:00 Test Item Value Reference Range Interpretation Comments RBC Morph (test code = See Note (11/24/21 RBC Morph) 11:12 PM) [facility] GreenvilleQhrwbddINOMDXXYUA6182-98-95 04:12:00 Test Item Value Reference Range Interpretation Comments Plt Morph (test code = Normal (11/24/21 11:12 Plt Morph) PM) [facility] GreenvilleZqzsyfbXNDIOGSNQC8427-57-17 04:12:00 Test Item Value Reference Range Interpretation Comments Segs (test code = Segs) 72.2 45.0-75.0 [facility] GreenvilleNuxtjioQGHLYDSUSS9624-41-54 04:12:00 Test Item Value Reference Range Interpretation Comments Lymphocytes (test code = Lymphocytes) 16.2 20.0-40.0 [place] 796562-06-28 04:12:00 Test Item Value Reference Range Interpretation Comments Monocytes (test code = Monocytes) 8.0 2.0-12.0 [place] 796562-06-28 04:12:00 Test Item Value Reference Range Interpretation Comments Eosinophils (test code = 2.7 See_Comment [A utomated message] The Eosinophils) system which ge nerated this result tra nsmitted reference range : <=4.0. The reference r samantha was not used to int erpret this result as normal/abnormal . [place] 796562-06-28 04:12:00 Test Item Value Reference Range Interpretation Comments Basophils (test code = 0.9 See_Comment [Aut omated message] The Basophils) system which ge nerated this result tra nsmitted reference range : <=1.0. The reference r samantha was not used to int erpret this result as normal/abnormal . [facility] GreenvilleXikcaxgVFPPQDVRXT1978-26-51 04:12:00 Test Item Value Reference Range Interpretation Comments Neutrophils # (test code = Neutrophils 2.9 1.5-8.1 #) [place] 796562-06-28 04:12:00 Test Item Value Reference Range Interpretation Comments Lymphocytes # (test code = Lymphocytes 0.7 1.0-5.5 #) [facility] GreenvilleIhfhwepURTFNJSKHS6435-18-34 04:12:00 Test Item Value Reference Range Interpretation Comments Monocytes # (test code 0.3 See_Comment [Aut omated message] The = Monocytes #) system which generated this result tra nsmitted reference range : <=0.8. The reference r samantha was not used to int erpret this result as normal/abnormal . [facility] GreenvilleAorjoplCKCXMYGKUK5678-77-83 04:12:00 Test Item Value Reference Range Interpretation Comments Eosinophils # (test code 0.1 See_Comment [A utomated message] The = Eosinophils #) system whic h generated this result tra nsmitted reference range : <=0.5. The reference r samantha was not used to int erpret this result as normal/abnormal . [place] 796562-06-28 04:12:00 Test Item Value Reference Range Interpretation Comments Anisocyte (test code = 1+ *ABN*(11/24/21 Anisocyte) 11:12 PM) [place] 796562-06-28 04:12:00 Test Item Value Reference Range Interpretation Comments Macrocyte (test code = 1+ *ABN*(11/24/21 Macrocyte) 11:12 PM) [facility] HospitalYoafbnqMEARSGZSIB9984-19-07 04:12:00 Test Item Value Reference Range Interpretation Comments Microcyte (test code = 1+ *ABN*(11/24/21 Microcyte) 11:12 PM) [facility] [employer] ARTJMTX4759-31-82 04:12:00 Test Item Value Reference Range Interpretation Comments ABO/Rh (test code = ABO/Rh) AB POS [facility] [employer] [id number] 04:12:00 Test Item Value Reference Range Interpretation Comments Antibody Scrn (test Negative (11/24/21 code = Antibody Scrn) 11:12 PM) [facility] [employer] RLRTQMK0043-94-66 04:12:00 Test Item Value Reference Range Interpretation Comments Total CK (test code = Total CK) 86 12-[address] [facility] [employer] MPPSGIO7873-10-07 04:12:00 Test Item Value Reference Range Interpretation Comments HS Troponin I (test code = HS Troponin 316 I) [facility] [employer] [id number] 04:12:00 Test Item Value Reference Range Interpretation Comments Glucose Lvl (test code = Glucose Lvl) 261 70-[address] [facility] [employer] [id number] 04:12:00 Test Item Value Reference Range Interpretation Comments BUN (test code = BUN) 60 7-[address] [facility] [employer] [id number] 04:12:00 Test Item Value Reference Range Interpretation Comments Creatinine Lvl (test code = Creatinine 8.49 0.50-1.40 Lvl) [facility] [employer] [id number] 04:12:00 Test Item Value Reference Range Interpretation Comments Sodium Lvl (test code = Sodium Lvl) 133 135-[address] [facility] [employer]2022-06-28 04:12:00 Test Item Value Reference Range Interpretation Comments Potassium Lvl (test code = Potassium 4.9 3.5-5.1 Lvl) [facility] [employer]2022-06-28 04:12:00 Test Item Value Reference Range Interpretation Comments Chloride Lvl (test code = Chloride Lvl) 93 95-[address] [facility] [employer] [id number] 04:12:00 Test Item Value Reference Range Interpretation Comments CO2 (test code = CO2) 31 24-32 [facility] [id number] 04:12:00 Test Item Value Reference Range Interpretation Comments Calcium Lvl (test code = Calcium Lvl) 9.1 8.5-10.5 [facility] HospitalFlynnLANCE [place] 88224QMIKP9053-16-03 04:12:00 Test Item Value Reference Range Interpretation Comments Total Protein (test code = Total 6.8 6.4-8.4 Protein) [place] 509392-06-28 04:12:00 Test Item Value Reference Range Interpretation Comments Albumin Lvl (test code = Albumin Lvl) 2.5 3.5-5.0 [facility] HospitalS[facility] [id number] 04:12:00 Test Item Value Reference Range Interpretation Comments ALT (test code = ALT) 51 See_Comment [Auto mated message] The system which ge nerated this result transmit swathi reference range : <=65. The reference range was not used to interpr et this result as deny l/abnormal. [facility] HospitalS[facility] [id number] 04:12:00 Test Item Value Reference Range Interpretation Comments AST (test code = AST) 36 See_Comment [Auto mated message] The system which ge nerated this result transmit swathi reference range : <=37. The reference range was not used to interpr et this result as deny l/abnormal. [facility] [id number] 04:12:00 Test Item Value Reference Range Interpretation Comments Alk Phos (test code = Alk Phos) 383 39-136 [facility] [id number] 04:12:00 Test Item Value Reference Range Interpretation Comments Bili Total (test code = Bili Total) 1.1 0.2-1.3 [facility] [id number] 04:12:00 Test Item Value Reference Range Interpretation Comments AGAP (test code = AGAP) 13.9 10.0-20.[address] [facility] [employer] [id number] 04:12:00 Test Item Value Reference Range Interpretation Comments B/C Ratio (test code = B/C Ratio) 7 1 6-25 [facility] [id number] 04:12:00 Test Item Value Reference Range Interpretation Comments Globulin (test code = Globulin) 4.3 2.7-4.[address] [facility] [employer] [id number] 04:12:00 Test Item Value Reference Range Interpretation Comments A/G Ratio (test code = A/G Ratio) 0.6 1 0.7-1.6 [facility] [id number] 04:12:00 Test Item Value Reference Range Interpretation Comments eGFR (test code = eGFR) 5 [facility] [id number] 04:12:00 Test Item Value Reference Range Interpretation Comments Procalcitonin Lvl (test 0.69 See_Comment [Au tomated message] code = Procalcitonin Lvl) e system which generated this result transmitted ref erence range: <=0.10. The reference range was not used to interpr et this result as normal/abnormal . [facility]villeHnzqeoxPBGTUNQPTM1344-22-12 04:12:00 Test Item Value Reference Range Interpretation Comments WBC (test code = WBC) 4.1 3.7-10.4 [place] 796562-06-28 04:12:00 Test Item Value Reference Range Interpretation Comments RBC (test code = RBC) 1.78 4.70-6.10 [facility] GreenvilleZbwlcccYXJCLFEHJP5546-60-91 04:12:00 Test Item Value Reference Range Interpretation Comments Hgb (test code = Hgb) 6.5 14.0-18.0 [facility] GreenvilleEkssnhxQPLIFKQJIS2278-68-13 04:12:00 Test Item Value Reference Range Interpretation Comments Hct (test code = Hct) 19.5 42.0-54.0 [place] 796562-06-28 04:12:00 Test Item Value Reference Range Interpretation Comments MCV (test code = MCV) 110.0 80.0-94.0 [place] 796562-06-28 04:12:00 Test Item Value Reference Range Interpretation Comments MCH (test code = MCH) 36.5 pg 27.0-31.0 [facility] GreenvilleImhueqgDTLDECUAOP0876-88-27 04:12:00 Test Item Value Reference Range Interpretation Comments MCHC (test code = MCHC) 33.2 32.0-36.0 [place] 796562-06-28 04:12:00 Test Item Value Reference Range Interpretation Comments RDW (test code = RDW) 19.0 11.5-14.5 [place] 796562-06-28 04:12:00 Test Item Value Reference Range Interpretation Comments Platelet (test code = Platelet) 180 133-450 [facility] GreenvilleYadazxfOCHGJSXAMX0540-16-71 04:12:00 Test Item Value Reference Range Interpretation Comments MPV (test code = MPV) 8.3 7.4-10.4 [facility] GreenvilleNmencksHCFFQQHUYL2253-16-02 04:12:00 Test Item Value Reference Range Interpretation Comments PTT (test code = PTT) 45.4 s 22.9-35.8 [place] 796562-06-28 04:12:00 Test Item Value Reference Range Interpretation Comments PT (test code = PT) 19.1 s 12.0-14.7 [place] [address]-06-28 04:12:00 Test Item Value Reference Range Interpretation Comments INR (test code = INR) 1.62 1 0.85-1.17 [place] 796562-06-28 04:12:00 Test Item Value Reference Range Interpretation Comments RBC Morph (test code = See Note (11/24/21 RBC Morph) 11:12 PM) [place] 796562-06-28 04:12:00 Test Item Value Reference Range Interpretation Comments Plt Morph (test code = Normal (11/24/21 11:12 Plt Morph) PM) [facility]villeWxcgvtdJFNCCGDZNH8996-58-96 04:12:00 Test Item Value Reference Range Interpretation Comments Segs (test code = Segs) 72.2 45.0-75.0 [place] 796562-06-28 04:12:00 Test Item Value Reference Range Interpretation Comments Lymphocytes (test code = Lymphocytes) 16.2 20.0-40.0 [place] 796562-06-28 04:12:00 Test Item Value Reference Range Interpretation Comments Monocytes (test code = Monocytes) 8.0 2.0-12.0 [place] [address]-06-28 04:12:00 Test Item Value Reference Range Interpretation Comments Eosinophils (test code = 2.7 See_Comment [A utomated message] The Eosinophils) system which ge nerated this result tra nsmitted reference range : <=4.0. The reference r samantha was not used to int erpret this result as normal/abnormal . [facility] GreenvillePsdzgtzRAXHMPHUCI5503-58-88 04:12:00 Test Item Value Reference Range Interpretation Comments Basophils (test code = 0.9 See_Comment [Aut omated message] The Basophils) system which ge nerated this result tra nsmitted reference range : <=1.0. The reference r samantha was not used to int erpret this result as normal/abnormal . [facility]villeNnwxfnvCKXNWXPUOR3366-26-03 04:12:00 Test Item Value Reference Range Interpretation Comments Neutrophils # (test code = Neutrophils 2.9 1.5-8.1 #) [facility] SurgeryFeaxlanCPNXMOEYAC1204-27-93 04:12:00 Test Item Value Reference Range Interpretation Comments Lymphocytes # (test code = Lymphocytes 0.7 1.0-5.5 #) [facility] SurgeryFodnoqxCRXHUEJWNZ5516-69-85 04:12:00 Test Item Value Reference Range Interpretation Comments Monocytes # (test code 0.3 See_Comment [Aut omated message] The = Monocytes #) system which generated this result tra nsmitted reference range : <=0.8. The reference r samantha was not used to int erpret this result as normal/abnormal . [facility] GreenvilleEmdiggaYEIBYJFAPN0283-25-76 04:12:00 Test Item Value Reference Range Interpretation Comments Eosinophils # (test code 0.1 See_Comment [A utomated message] The = Eosinophils #) system whic h generated this result tra nsmitted reference range : <=0.5. The reference r samantha was not used to int erpret this result as normal/abnormal . [facility] SurgeryRgjzlmuTFUKTVBTUT2268-86-30 04:12:00 Test Item Value Reference Range Interpretation Comments Anisocyte (test code = 1+ *ABN*(11/24/21 Anisocyte) 11:12 PM) [facility] CenterRasdhatVMPUJIELMQ3072-56-30 04:12:00 Test Item Value Reference Range Interpretation Comments Macrocyte (test code = 1+ *ABN*(11/24/21 Macrocyte) 11:12 PM) [facility] SurgeryErbjgqrGGOBAPDGLZ7731-37-47 04:12:00 Test Item Value Reference Range Interpretation Comments Microcyte (test code = 1+ *ABN*(11/24/21 Microcyte) 11:12 PM) [facility] SurgeryO[facility] [id number] 00:00:00 Test Item Value Reference Range Interpretation Comments A1C (test code = 4548-4) 8.8 HEMOGLOBIN [id number] 00:00:00 Test Item Value Reference Range Interpretation Comments A1C (test code = 4548-4) 8.3 HEMOGLOBIN [id number] 00:00:00 Test Item Value Reference Range Interpretation Comments A1C (test code = 4548-4) 10.3 Notes Date/Time Note Provider Source 2022-01-02 12:48:02-00:00 PROCEDURE INFORMATION: [facility] Exam: XR Chest Exam date [...] Chester Kemp MD On 01/02/2022 13:11:40; VR-KBRYA [id number] 9350-08-05 12:48:02-00:00 [facility] Exam date and [...] Chester Kemp MD On 01/02/2022 13:11:40; VR-KBRYA [id number] 8566-08-05 12:48:02-00:00 PROCEDURE IN[facility]: [facility]: [facility] Chest Exam date and [...] Chester Kemp MD On 01/02/2022 13:11:40; VR-KBRYA [id number] 4733-08-05 12:48:02-00:00 PROCEDURE INFORMATION: [facility] Exam: XR Chest Exam date [...] Chester Kemp MD On 01/02/2022 13:11:40; VR-KBRYA [id number] 1880-08-05 12:48:02-00:00 PROCEDURE INFORMATION: [facility] Exam: XR Chest Exam date [...] Chester Kemp MD On 01/02/2022 13:11:40; VR-KBRYA [id number] 8896-08-05 12:48:02-00:00 PROCEDURE INFORMATION: [facility] Exam: XR Chest Exam date [...] Chester Kemp MD On 01/02/2022 13:11:40; VR-KBRYA [id number] 0258-08-05 12:48:02-00:00 PROCEDURE INFORMATION: [facility] Exam: XR Chest Exam date [...] Chester Kemp MD On 01/02/2022 13:11:40; VR-KBRYA [id number] [id number] 12:48:02-00:00 PROCEDURE INFORMATION: [facility] Exam: XR Chest Exam date [...] Chester Kemp MD On 01/02/2022 13:11:40; VR-KBRYA [id number] [id number] 12:00:00-00:00 Radiation Dose CTDIVOL = 0 ( mGy): DLP = 1052.78 (mGy-cm) [facility] PROCEDURE INFORMATION: Exam: CTA Chest With Contrast Exam date and time: 12/15/2021 12:49 PM Age: 76 years old Clinical indication: /possible pe, positive for covid-19, respiratory infections and infla 12/14/21 TECHNIQUE: Imaging protocol: Computed tomographic a ngiography of the chest with contrast. 3D rendering (Not supervised by radiologist): GA P and/or 3D reconstructed images were created [...] Alexis Maloney MD On 12/15/2021 15:45:07; VR- [id number] 2021-12-15 12:00:00-00:00 Radiation Dose CTDIVOL = 0 ( mGy): DLP = 1052.78 (mGy-cm) [facility] PROCEDURE INFORMATION: Exam: CTA Chest With Contrast Exam date and time: 12/15/2021 12:49 PM Age: 76 years old Clinical indication: /possible pe, positive for covid-19, respiratory infections and infla 12/14/21 TECHNIQUE: Imaging protocol: Computed tomographic a ngiography of the chest with contrast. 3D rendering (Not supervised by radiologist): GA P and/or 3D reconstructed images were created [...] Alexis Maloney MD On 12/15/2021 15:45:07; VR- [id number] 2021-12-15 12:00:00-00:00 Radiation Dose CTDIVOL = 0 ( mGy): DLP = 1052.78 (mGy-cm) [facility] PROCEDURE INFORMATION: Exam: CTA Chest With Contrast Exam date and time: 12/15/2021 12:49 PM Age: 76 years old Clinical indication: /possible pe, positive for covid-19, respiratory infections and infla 12/14/21 TECHNIQUE: Imaging protocol: Computed tomographic a ngiography of the chest with contrast. 3D rendering (Not supervised by radiologist): GA P and/or 3D reconstructed images were created [...] Alexis Maloney MD On 12/15/2021 15:45:07; VR- [id number] 2021-12-15 12:00:00-00:00 Radiation Dose CTDIVOL = 0 ( mGy): DLP = 1052.78 (mGy-cm) [facility] PROCEDURE INFORMATION: Exam: CTA Chest With Contrast Exam date and time: 12/15/2021 12:49 PM Age: 76 years old Clinical indication: /possible pe, positive for covid-19, respiratory infections and infla 12/14/21 TECHNIQUE: Imaging protocol: Computed tomographic a ngiography of the chest with contrast. 3D rendering (Not supervised by radiologist): GA P and/or 3D reconstructed images were created [...] Alexis Maloney MD On 12/15/2021 15:45:07; VR- [id number] 2021-12-15 12:00:00-00:00 Radiation Dose CTDIVOL = 0 ( mGy): DLP = 1052.78 (mGy-cm) [facility] PROCEDURE INFORMATION: Exam: CTA Chest With Contrast Exam date and time: 12/15/2021 12:49 PM Age: 76 years old Clinical indication: /possible pe, positive for covid-19, respiratory infections and infla 12/14/21 TECHNIQUE: Imaging protocol: Computed tomographic a ngiography of the chest with contrast. 3D rendering (Not supervised by radiologist): GA P and/or 3D reconstructed images were created [...] Alexis Maloney MD On 12/15/2021 15:45:07; VR- [id number] 2021-12-15 12:00:00-00:00 Radiation Dose CTDIVOL = 0 ( mGy): DLP = 1052.78 (mGy-cm) [facility] PROCEDURE INFORMATION: Exam: CTA Chest With Contrast Exam date and time: 12/15/2021 12:49 PM Age: 76 years old Clinical indication: /possible pe, positive for covid-19, respiratory infections and infla 12/14/21 TECHNIQUE: Imaging protocol: Computed tomographic a ngiography of the chest with contrast. 3D rendering (Not supervised by radiologist): GA P and/or 3D reconstructed images were created [...] Alexis Maloney MD On 12/15/2021 15:45:07; VR- [id number] 2021-12-15 12:00:00-00:00 Radiation Dose CTDIVOL = 0 ( mGy): DLP = 1052.78 (mGy-cm) [facility] PROCEDURE INFORMATION: Exam: CTA Chest With Contrast Exam date and time: 12/15/2021 12:49 PM Age: 76 years old Clinical indication: /possible pe, positive for covid-19, respiratory infections and infla 12/14/21 TECHNIQUE: Imaging protocol: Computed tomographic a ngiography of the chest with contrast. 3D rendering (Not supervised by radiologist): GA P and/or 3D reconstructed images were created [...] Alexis Maloney MD On 12/15/2021 15:45:07; VR- [id number] 2021-12-15 12:00:00-00:00 Radiation Dose CTDIVOL = 0 ( mGy): DLP = 1052.78 (mGy-cm) [facility] PROCEDURE INFORMATION: Exam: CTA Chest With Contrast Exam date and time: 12/15/2021 12:49 PM Age: 76 years old Clinical indication: /possible pe, positive for covid-19, respiratory infections and infla 12/14/21 TECHNIQUE: Imaging protocol: Computed tomographic a ngiography of the chest with contrast. 3D rendering (Not supervised by radiologist): GA P and/or 3D reconstructed images were created [...] Alexis Maloney MD On 12/15/2021 15:45:07; VR- [id number] 2021-12-14 15:50:31-00:00 PROCEDURE INFORMATION: [facility] Exam: XR Chest Exam date [...] SHARRI [id number] 2021-12-14 15:50:31-00:00 PROCEDURE INFORMATION: [facility] Exam: XR Chest Exam date [...] SHARRI ADEN__[id number] 2021-12-14 15:50:31-00:00 PROCEDURE INFORMATION: [facility] Exam: XR Chest Exam date [...] Chester Back MD On 12/14/2021 16:21:28; SHARRI [id number] 2021-12-14 15:50:31-00:00 PROCEDURE INFORMATION: [facility] Exam: XR Chest Exam date [...] SHARRI [id number] 2021-12-14 15:50:31-00:00 PROCEDURE INFORMATION: [facility] Exam: XR Chest Exam date [...] base. Chester Back MD On 12/14/2021 16:21:28; CARMELA- [id number] 2021-12-14 15:50:31-00:00 PROCEDURE INFORMATION: [facility] Exam: XR Chest Exam date [...] SHARRI [id number] 2021-12-14 15:50:31-00:00 PROCEDURE INFORMATION: [facility] Exam: XR Chest Exam date [...] 16:21:28; CARMELA-C [id number] 2021-12-14 15:50:31-00:00 PROCEDURE INFORMATION: [facility] Exam: XR Chest Exam date [...] 16:21:28; VR-C [id number] 2021-12-03 20:30:42-00:00 PROCEDURE INFORMATION: [facility] Exam: XR Chest Exam date [...] Avtar Fortune MD On 12/03/2021 21:17:23; VR-KPATE0 [id number] 2021-12-03 20:30:42-00:00 PROCEDURE INFORMATION: [facility] Exam: XR Chest Exam date [...] Avtar Fortune MD On 12/03/2021 21:17:23; VR-KPATE0 [id number] 2021-12-03 20:30:42-00:00 PROCEDURE INFORMATION: [facility] Exam: XR Chest Exam date [...] Avtar Fortune MD On 12/03/2021 21:17:23; VR-KPATE0 [id number] 2021-12-03 20:30:42-00:00 PROCEDURE INFORMATION: [facility] Exam: XR Chest Exam date [...] Avtar Fortune MD On 12/03/2021 21:17:23; VR-KPATE0 [id number] 2021-12-03 20:30:42-00:00 PROCEDURE INFORMATION: [facility] Exam: XR Chest Exam date [...] Avtar Fortune MD On 12/03/2021 21:17:23; VR-KPATE0 [id number] 2021-12-03 20:30:42-00:00 PROCEDURE INFORMATION: [facility] Exam: XR Chest Exam date [...] Avtar Fortune MD On 12/03/2021 21:17:23; VR-KPATE0 [id number] 2021-12-03 20:30:42-00:00 PROCEDURE INFORMATION: [facility] Exam: XR Chest Exam date [...] Avtar Fortune MD On 12/03/2021 21:17:23; VR-KPATE0 [id number] 2021-12-03 20:30:42-00:00 PROCEDURE INFORMATION: [facility] Exam: XR Chest Exam date [...] Avtar Fortune MD On 12/03/2021 21:17:23; VR-KPATE0 [id number] 2021-11-25 05:45:00-00:00 PROCEDURE INFORMATION: [facility] Exam: US Duplex Lower Extremity [...] Cole Barnes MD On 11/25/2021 07:01:56; VR-GSYN [id number] 2021-11-25 05:45:00-00:00 PROCEDURE INFORMATION: [facility] Exam: US Abdomen, Limited; Right [...] Kit Pollard MD On 11/25/2021 07:54:47; VR -[id number] 2021-11-25 05:45:00-00:00 PROCEDURE INFORMATION: [facility] Exam: US Duplex Lower Extremity [...] Cole Barnes MD On 11/25/2021 07:01:56; VR-GSYN [id number] 2021-11-25 05:45:00-00:00 PROCEDURE INFORMATION: [facility] Exam: US Abdomen, Limited; Right [...] Kit Pollard MD On 11/25/2021 07:54:47; VR -[id number] 2021-11-25 05:45:00-00:00 PROCEDURE INFORMATION: [facility] Exam: US Duplex Lower Extremity [...] Cole Barnes MD On 11/25/2021 07:01:56; VR-GSYN [id number] 2021-11-25 05:45:00-00:00 PROCEDURE INFORMATION: [facility] Exam: US Abdomen, Limited; Right [...] Kit Pollard MD On 11/25/2021 07:54:47; VR -[id number] 2021-11-25 05:45:00-00:00 PROCEDURE INFORMATION: [facility] Exam: US Duplex Lower Extremity [...] Cole Barnes MD On 11/25/2021 07:01:56; VR-GSYN [id number] 2021-11-25 05:45:00-00:00 PROCEDURE INFORMATION: [facility] Exam: US Abdomen, Limited; Right [...] exclude pancreatitis 3. Small volume of ascites iKt Pollard MD On 11/25/2021 07:54:47; VR -[id number] 2021-11-25 05:45:00-00:00 PROCEDURE INFORMATION: [facility] Exam: US Duplex Lower Extremity [...] Cole Barnes MD On 11/25/2021 07:01:56; VR-GSYN [id number] 2021-11-25 05:45:00-00:00 PROCEDURE INFORMATION: [facility] Exam: US Abdomen, Limited; Right [...] Kit Pollard MD On 11/25/2021 07:54:47; VR -[id number] 2021-11-25 05:45:00-00:00 PROCEDURE INFORMATION: [facility] Exam: US Duplex Lower Extremity [...] Cole Barnes MD On 11/25/2021 07:01:56; VR-GSYN [id number] 2021-11-25 05:45:00-00:00 PROCEDURE INFORMATION: [facility] Exam: US Abdomen, Limited; Right [...] Kit Pollard MD On 11/25/2021 07:54:47; VR -[id number] 2021-11-25 05:45:00-00:00 PROCEDURE INFORMATION: [facility] Exam: US Duplex Lower Extremity [...] Cole Barnes MD On 11/25/2021 07:01:56; VR-GSYN [id number] 2021-11-25 05:45:00-00:00 PROCEDURE INFORMATION: [facility] Exam: US Abdomen, Limited; Right [...] Kit Pollard MD On 11/25/2021 07:54:47; VR -[id number] 2021-11-25 05:45:00-00:00 PROCEDURE INFORMATION: [facility] Exam: US Duplex Lower Extremity [...] Cole Barnes MD On 11/25/2021 07:01:56; VR-GSYN [id number] 2021-11-25 05:45:00-00:00 PROCEDURE INFORMATION: [facility] Exam: US Abdomen, Limited; Right [...] Kit Pollard MD On 11/25/2021 07:54:47; VR -[id number] 2021-11-25 02:17:08-00:00 PROCEDURE INFORMATION: [facility] Exam: XR Right Foot Exam [...] Surendra Chavis MD On 11/25/2021 02:27:52; VR-SMITT0 [id number] 2021-11-25 02:17:08-00:00 PROCEDURE INFORMATION: [facility] Exam: XR Right Foot Exam [...] Surendra Chavis MD On 11/25/2021 02:27:52; VR-SMITT0 [id number] 2021-11-25 02:17:08-00:00 PROCEDURE INFORMATION: [facility] Exam: XR Right Foot Exam [...] Surendra Chavis MD On 11/25/2021 02:27:52; VR-SMITT0 [id number] 2021-11-25 02:17:08-00:00 PROCEDURE INFORMATION: [facility] Exam: XR Right Foot Exam [...] Surendra Chavis MD On 11/25/2021 02:27:52; VR-SMITT0 [id number] 2021-11-25 02:17:08-00:00 PROCEDURE INFORMATION: [facility] Exam: XR Right Foot Exam [...] Surendra Chavis MD On 11/25/2021 02:27:52; VR-SMITT0 [id number] 2021-11-25 02:17:08-00:00 PROCEDURE INFORMATION: [facility]: XR Right Foot Exam date [...] Surendra Chavis MD On 11/25/2021 02:27:52; VR-SMITT0 [id number] 2021-11-25 02:17:08-00:00 PROCEDURE INFORMATION: [facility] Ex[facility]: XR Right Foot Exam date [...] Surendra Chavis MD On 11/25/2021 02:27:52; PILARSMITT0 [id number] 2021-11-25 02:17:08-00:00 PROCEDURE INFORMATION: [facility] Exam: XR Right Foot Exam [...] Surendra Chavis MD On 11/25/2021 02:27:52; VR-SMITT0 [id number] 2021-11-24 23:56:05-00:00 Radiation Dose CTDIVOL = 0 ( mGy): DLP = 675.2 (mGy-cm) [facility] PROCEDURE INFORMATION: Exam: CT Abdomen [...] additional nonacute findings. COMMENTS: Consistent with the [employer] Incidental Findings [employer] [...] Surendra Chavis MD On 11/25/2021 00:47:46; VR-SMITT0 [id number] 2021-11-24 23:56:05-00:00 Radiation Dose CTDIVOL = 0 ( mGy): DLP = 675.2 (mGy-cm) [facility] PROCEDURE INFORMATION: Exam: CT Abdomen [...] additional nonacute findings. COMMENTS: Consistent with the [employer] Incidental Findings [employer] [...] Surendra Chavis MD On 11/25/2021 00:47:46; VR-SMITT0 [id number] 2021-11-24 23:56:05-00:00 Radiation Dose CTDIVOL = 0 ( mGy): DLP = 675.2 (mGy-cm) [facility] PROCEDURE INFORMATION: Exam: CT Abdomen [...] additional nonacute findings. COMMENTS: Consistent with the [employer] Incidental Findings [employer] [...] Surendra Chavis MD On 11/25/2021 00:47:46; VR-SMITT0 [id number] 2021-11-24 23:56:05-00:00 Radiation Dose CTDIVOL = 0 ( mGy): DLP = 675.2 (mGy-cm) [facility] PROCEDURE INFORMATION: Exam: CT Abdomen [...] additional nonacute findings. COMMENTS: Consistent with the [employer] Incidental Findings [employer] [...] Surendra Chavis MD On 11/25/2021 00:47:46; VR-SMITT0 [id number] 2021-11-24 23:56:05-00:00 Radiation Dose CTDIVOL = 0 ( mGy): DLP = 675.2 (mGy-cm) [facility] PROCEDURE INFORMATION: Exam: CT Abdomen [...] additional nonacute findings. COMMENTS: Consistent with the [employer] Incidental Findings [employer] [...] Surendra Chavis MD On 11/25/2021 00:47:46; VR-SMITT0 [id number] 2021-11-24 23:56:05-00:00 Radiation Dose CTDIVOL = 0 ( mGy): DLP = 675.2 (mGy-cm) [facility] PROCEDURE INFORMATION: Exam: CT Abdomen [...] additional nonacute findings. COMMENTS: Consistent with the [employer] Incidental Findings [employer] [...] Surendra Chavis MD On 11/25/2021 00:47:46; VR-SMITT0 [id number] 2021-11-24 23:56:05-00:00 Radiation Dose CTDIVOL = 0 ( mGy): DLP = 675.2 (mGy-cm) [facility] PROCEDURE INFORMATION: Exam: CT Abdomen [...] additional nonacute findings. COMMENTS: Consistent with the [employer] Incidental Findings [employer] [...] Surendra Chavis MD On 11/25/2021 00:47:46; VR-SMITT0 [id number] 2021-11-24 23:56:05-00:00 Radiation Dose CTDIVOL = 0 ( mGy): DLP = 675.2 (mGy-cm) [facility] PROCEDURE INFORMATION: Exam: CT Abdomen [...] additional nonacute findings. COMMENTS: Consistent with the [employer] Incidental Findings [employer] [...] Surendra Chavis MD On 11/25/2021 00:47:46; VR-SMITT0 [id number] 2021-11-24 22:50:28-00:00 PROCEDURE INFORMATION: [facility] Exam: XR Chest Exam date [...] Surendra Chavis MD On 11/24/2021 22:53:49; VR-SMITT0 [id number] 2021-11-24 22:50:28-00:00 PROCEDURE INFORMATION: [facility] Exam: XR Chest Exam date [...] Surendra Chavis MD On 11/24/2021 22:53:49; CARMELA-SMITT0 [id number] 2021-11-24 22:50:28-00:00 PROCEDURE INFORMATION: [facility] Exam: XR Chest Exam date [...] Cardiomegaly. Surendra Chavis MD On 11/24/2021 22:53:49; PILARSMITT [id number] 0221-06-27 22:50:28-00:00 PROCEDURE INFORMATION: [facility] Exam: XR Chest Exam date [...] Surendra Chavis MD On 11/24/2021 22:53:49; CARMELA-SMITT0 [id number] 2021-11-24 22:50:28-00:00 PROCEDURE INFORMATION: [facility]: XR Chest Exam date and [...] Surendra Chavis MD On 11/24/2021 22:53:49; VR-SMITT0 [id number] 2021-11-24 22:50:28-00:00 PROCEDURE INFORMATION: [facility] Ex[facility]: XR Chest Exam date and [...] Surendra Chavis MD On 11/24/2021 22:53:49; CARMELA-SMITT0 [id number] 2021-11-24 22:50:28-00:00 PROCEDURE INFORMATION: [facility] Exam: XR Chest Exam date and [...] Cardiomegaly. Surendra Chavis MD On 11/24/2021 22:53:49; PILARSMITT0 [id number] 2021-11-24 22:50:28-00:00 PROCEDURE INFORMATION: [facility] Ex[facility]: XR Chest Exam date and [...] Surendra Chavis MD On 11/24/2021 22:53:49; VR-SMITT0 [id number]
[2023-02-08 14:35] LABS: Albumin 3.3 g/dL (3.4-5.0); Bilirubin Total 1.1 mg/dL (0.2-1.0); Protein, Total 7.1 g/dL (6.4-8.2)
--- NOTE | 2023-02-08 15:25 | RAD REPORT ---
EXAM DESCRIPTION: CT - Abdomen Pelvis Wo Contrast - 02/08/2023 2:19 pm CLINICAL HISTORY: ABD PAIN COMPARISON: Abdomen Pelvis Wo Contrast dated 11/20/2022; Abdomen Pelvis Wo Contrast dated 09/11/19 TECHNIQUE: Thin cut axial CT imaging of the abdomen and pelvis was performed without IV contrast. Mu ltiplanar reformats were generated and reviewed. All CT scans are performed using dose optimization technique as appropriate and may include automated exposure control or mA/KV adjustment according to patient size. FINDINGS: Small left and moderate right effusion, with underlying atelectasis. Marked cardiomegaly. The liver, spleen, adrenal glands, and pancreas show no suspicious findings. Cholelithiasis. Bilateral renal atrophic changes, without suspicious parenchymal findings within limits of noncontras t technique. Stable left cortical cysts with some marginal calcifications along the superior ones. St able parenchymal calcifications at the left lower renal pole. No evidence of radiopaque calculi or hy droureteronephrosis. Moderate hiatal hernia. Mild gastric dilation and moderate dilation of the proximal duodenum, could r eflect mild ileus. Colonic diverticulosis. No bowel wall thickening. Moderate stool burden along the distal sigmoid and rectum. Mild free ascites. No free air, fluid collections, or inflammatory strandi ng. Bilateral bold inguinal hernias containing fluid on the right, and trace fluid on the left. No turner spicious mass or bulky lymphadenopathy. The urinary bladder is without significant finding. Stable marked anterior wedge compression deformity at L1. No other suspicious bony findings. IMPRESSION: Mild free bursitis. Mild gastric dilation and moderate dilation of the proximal duodenum. Findings may reflect mild ileus . Other stable findings including bilateral pleural effusions, cholelithiasis, atrophic changes of the kidneys, and colonic diverticulosis. Moderate stool burden noted along the distal sigmoid and rectum.
--- NOTE | 2023-02-08 15:49 | ER ---
Nurse's Notes [facility] Name: Guzman Mayers Age: 77 yrs Sex: Male : 1945 Arrival Date: 02/08/2023 Time: 13:[address] Private MD: Diagnosis: Anemia, unspecified;Ileus, unspecified;Abdominal pain, Generalized;End stage renal disease Presentation: 02/08 14:00 Chief complaint: Patient states: he was at dialysis when he started having right lower ap3 quadrant abdominal pain. patient was able to get dialysis for approx one hour. Coronavirus screen: At this time, the client does not indicate any symptoms associated with coronavirus-19. Ebola Screen: No symptoms or risks identified at this time. Initial Sepsis Screen: Does the patient meet any 2 criteria? No. Patient's initial sepsis screen is negative. Does the patient have a suspected source of infection? Yes: Acute abdominal pain. Risk Assessment: Do you want to hurt yourself or someone else? Patient reports no desire to harm self or others. Onset of symptoms was February 08, 2023. 14:00 Method Of Arrival: EMS: [facility] ap3 14:00 Acuity: CHICHO 3 ap3 Triage Assessment: 14:02 General: Appears uncomfortable, Behavior is calm, cooperative, appropriate for age. ap3 Pain: Complains of pain in right lower quadrant. Neuro: Level of Consciousness is awake, alert, obeys commands, Oriented to person, place, time, situation. Cardiovascular: Patient's skin is warm and dry. Respiratory: Airway is patent Respiratory effort is even, unlabored, Respiratory pattern is regular, symmetrical. GI: Reports lower abdominal pain. Historical: - Allergies: 14:01 Codeine; ap3 14:01 GABAPENTIN; ap3 - PMHx: 14:01 ADD/ADHD; blood transfusion; CHF; CKD; COPD; Diabetes - IDDM; Dialysis; MWF; High ap3 Cholesterol; HTN; Hypertension; - PSHx: 14:01 L arm dialysis access; ap3 - Immunization history:: Client reports receiving the 2nd dose of the Covid vaccine. - Social history:: Smoking status: unknown. Screenin:02 Abuse screen: Denies threats or abuse. Nutritional screening: No deficits noted. ap3 Tuberculosis screening: No symptoms or risk factors identified. Assessment: 19:00 General: RECD REPORT FROM ZHENG RIGGINS. 77YO HM P/W ABD PAIN DURING DIALYSIS. bp 19:45 Reassessment: PT CONSENTED FOR PRBC, PT SOMNOLENT BUT VERBALLY AGREED TO TRANSFUSION. bp Vital Signs: 14:00 BP 119 / 64; Pulse 114; Resp 18; Temp 98.4; Pulse Ox 100% ; ap3 14:50 BP 122 / 73; Pulse 88; Pulse Ox 99% on 2 lpm NC; ap3 19:00 BP 97 / 44; Pulse 76; Resp 18; Pulse Ox 93% ; bp 21:00 BP 101 / 45; Pulse 77; Resp 23; Pulse Ox 100% ; bp ED Course: 13:43 Patient arrived in ED. bd 13:44 Miller Cai DO is Attending Physician. ms3 14:00 Zheng Lakhani, RN is Primary Nurse. ap3 14:01 Triage completed. ap3 14:03 Arm band placed on right wrist. ap3 14:03 Patient has correct armband on for positive identification. Bed in low position. Call ap3 light in reach. Side rails up X2. Pulse ox on. NIBP on. 14:14 Initial lab(s) drawn, by de, sent to lab. Inserted saline lock: 20 gauge in right ap3 antecubital area, using aseptic technique. Blood collected. 14:20 CT Abd/Pelvis - Without Contrast In Process Unspecified. EDMS 15:47 Mando Tidwell MD is Hospitalizing Provider. ms3 16:21 CXR XRAY In Process Unspecified. EDMS 16:26 Bb Add On Sent. ko1 16:26 Type And Screen Sent. ko1 19:27 Primary Nurse role handed off by Zheng Lakhani, GILSON bp 19:27 Nick Rey, GILSON is Primary Nurse. bp 22:59 No provider procedures requiring assistance completed. Patient admitted, IV remains in bp place. Administered Medications: No medications were administered Medication: 14:03 VIS not applicable for this client. ap3 Outcome: 15:48 Decision to Hospitalize by Provider. ms3 22:59 Admitted to Med/surg accompanied by tech, via stretcher, room 208, with oxygen, with bp chart, Report called to FRANTZ RIGGINS 22:59 Condition: stable 22:59 Instructed on the need for admit. 23:05 Patient left the ED. jb4 Signatures: Dispatcher [employer] EDMS Lynn Martinez James, RN RN jb4 Nick Rey, RN RN Zheng Cano RN RN ap3 Miller Cai DO DO ms3 Analia Stoll, GILSON RN ko1
--- NOTE | 2023-02-08 15:49 | EDPHYS ---
Physician Documentation [facility] Name: Guzman Mayers Age: 77 yrs Sex: Male : 1945 Arrival Date: 02/08/2023 Time: 13:[address] Private MD: ED Physician Miller Cai HPI: 02/08 15:48 This 77 yrs old Male presents to ER via EMS with complaints of Abdominal Pain. ms3 15:48 77-year-old male with past medical history of ADD/ADHD, anemia, congestive heart ms3 failure, end-stage renal disease, COPD, diabetes presents via [facility] for abdominal pain that began while on dialysis approximately 1 and half hours prior to arrival. Patient states his pain is severe. Patient denies alleviating or inciting factors. Patient states pain is located in the suprapubic region. Historical: - Allergies: 14:01 Codeine; ap3 14:01 GABAPENTIN; ap3 - PMHx: 14:01 ADD/ADHD; blood transfusion; CHF; CKD; COPD; Diabetes - IDDM; Dialysis; MWF; High ap3 Cholesterol; HTN; Hypertension; - PSHx: 14:01 L arm dialysis access; ap3 - Immunization history:: Client reports receiving the 2nd dose of the Covid vaccine. - Social history:: Smoking status: unknown. ROS: 15:48 Constitutional: Negative for fever, and chills. Cardiovascular: Negative for chest ms3 pain, and palpitations. 15:48 MS/Extremity: Negative for injury and deformity, Skin: Negative for injury, rash, and discoloration. 15:48 Respiratory: Positive for shortness of breath. 15:48 Abdomen/GI: Positive for abdominal pain. 15:48 All other systems are negative. Exam: 15:48 Constitutional: This is a well developed, well nourished patient who is awake, alert, ms3 and in no acute distress. Head/Face: Normocephalic, atraumatic. Chest/axilla: Normal chest wall appearance and motion. Nontender with no deformity. Cardiovascular: Regular rate and rhythm with a normal S1 and S2. No gallops, murmurs, or rubs. Normal PMI, no JVD. No pulse deficits. Respiratory: Lungs have equal breath sounds bilaterally, clear to auscultation and percussion. No rales, rhonchi or wheezes noted. No increased work of breathing, no retractions or nasal flaring. 15:48 Skin: Warm, dry with normal turgor. Normal color with no rashes, no lesions, and no evidence of cellulitis. MS/ Extremity: Pulses equal, no cyanosis. Neurovascular intact. Full, normal range of motion. 15:48 Abdomen/GI: Inspection: abdomen appears normal, Bowel sounds: normal, Palpation: moderate abdominal tenderness, in the suprapubic area, Rectal exam: Vital Signs: 14:00 BP 119 / 64; Pulse 114; Resp 18; Temp 98.4; Pulse Ox 100% ; ap3 14:50 BP 122 / 73; Pulse 88; Pulse Ox 99% on 2 lpm NC; ap3 19:00 BP 97 / 44; Pulse 76; Resp 18; Pulse Ox 93% ; bp 21:00 BP 101 / 45; Pulse 77; Resp 23; Pulse Ox 100% ; bp MDM: 13:44 Patient medically screened. ms3 15:48 Differential diagnosis: bowel obstruction, diverticulitis, non-specific abd pain, ms3 urinary tract infection. Data reviewed: vital signs, nurses notes, lab test result(s), radiologic studies, and as a result, I will admit patient. Consideration of Admission/Observation Patient was admitted/placed on observation. Management of patient was discussed with the following: Hospitalist: MICHELLE Wadsworth on behalf of Dr Tidwell. 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 Independent interpretation of the following test(s) in the Emergency Department CT Scan: My interpretation is CT images reviewed do not show free air. Historians other than the Patient: EMS: [facility]. Counseling: I had a detailed discussion with the patient and/or guardian regarding the historical points, exam findings, and any diagnostic results supporting the discharge/admit diagnosis, lab results, radiology results. ED course: . 02/08 13:57 Order name: CBC with Diff; Complete Time: 16:32 ms3 02/08 13:57 Order name: CMP; Complete Time: 15:29 ms3 02/08 13:57 Order name: Lipase; Complete Time: 15:29 ms3 02/08 13:57 Order name: Urinalysis w/ reflexes ms3 02/08 15:33 Order name: Type And Screen 3 02/08 15:35 Order name: Bb Add On ms3 02/08 16:19 Order name: CBC Smear Scan; Complete Time: 16:32 EDMS 02/08 16:44 Order name: Magnesium; Complete Time: 03:55 EDMS 02/08 16:44 Order name: Phosphorus; Complete Time: 03:55 EDMS 02/08 16:44 Order name: Urinalysis w/ reflexes EDMS 02/08 16:44 Order name: Basic Metabolic Panel EDMS 02/08 16:44 Order name: Basic Metabolic Panel EDMS 02/08 16:44 Order name: CBC with Automated Diff EDMS 02/08 16:44 Order name: CBC with Automated Diff; Complete Time: 03:55 EDMS 02/08 13:57 Order name: CT Abd/Pelvis - Without Contrast; Complete Time: 15:44 ms3 02/08 15:45 Order name: CXR XRAY; Complete Time: 16:32 ms3 02/08 16:46 Order name: Thorax Wo Con; Complete Time: 03:55 EDMS 02/08 16:44 Order name: CONS Physician Consult EDMS 02/08 16:44 Order name: Renal EDMS 02/08 13:57 Order name: IV Saline Lock; Complete Time: 14:14 ms3 02/08 13:57 Order name: Labs collected and sent; Complete Time: 14:14 ms3 Administered Medications: No medications were administered Disposition Summary: 02/08/23 15:48 Hospitalization Ordered Hospitalization Status: Inpatient Admission ms3 Provider: Mando Tidwell ms3 [facility] ms3 Condition: Stable ms3 Problem: new ms3 Symptoms: are unchanged ms3 Bed/Room Type: Standard ms3 Room Assignment: 208(02/08/23 22:20) mw Diagnosis - Anemia, unspecified ms3 - Ileus, unspecified ms3 - Abdominal pain, Generalized ms3 - End stage renal disease ms3 Forms: - Medication Reconciliation Form ms3 - SBAR form ms3 - Leadership Thank You Letter ms3 Signatures: Dispatcher [employer] [facility] Isidra Combs RN RN mw Attema, Lee, [employer]-C [employer]-Erica1 Juana Lakhani RN RN ap3 Miller Cai DO DO ms3 Corrections: (The following items were deleted from the chart) 22:20 15:48 ms3 mw
[2023-02-08 16:18] LABS: Anisocytosis 1+; Blood Morphology Comment NOTED (NOT SEEN); Hypochromasia 2+; Platelet Estimate DECR; White Blood Cell Scan OK (OK)
[2023-02-08 16:19] LABS: Poikilocytosis 2+
--- NOTE | 2023-02-08 16:25 | RAD REPORT ---
EXAM DESCRIPTION: RADChest Single View02/08/2023 4:19 pm CLINICAL HISTORY: DYSPNEA COMPARISON: Chest Single View dated 12/25/2022; Abdomen Acute Series dated 11/29/2022; Chest Single Vie w dated 11/15/2022; Chest Single View dated 11/08/2022; Abdomen Pelvis Wo Contrast dated 02/08/2023 TECHNIQUE: Portable AP view of the chest. FINDINGS: Stable cardiomegaly and right pleural effusion with underlying airspace opacities. No new focal consolidation or pneumothorax. The mediastinal contours are unremar unchanged kable. IMPRESSION: Stable findings, as above.
[2023-02-08] MEDS ORDERED: ACETAMINOPHEN 325 MG TABLET PO PRN (16:39)
[2023-02-08] MEDS ORDERED: HYDROCODONE/APAP 5/325 MG TAB PO PRN (16:39)
[2023-02-08] MEDS ORDERED: ONDANSETRON 4 MG/2 ML VIAL IV PRN (16:42)
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
[2023-02-08 18:02] LABS: Magnesium 2.6 mg/dL (1.6-2.4)
--- NOTE | 2023-02-08 18:17 | RAD REPORT ---
EXAM DESCRIPTION: CT - Thorax Wo Con - 02/08/2023 6:01 pm CLINICAL HISTORY: Chest congestion, SOB, R O PNA COMPARISON: Thorax Wo Con dated 09/13/2022; Chest Abd Pelvis Wo Con dated 06/16/2022; Thorax Wo Con da swathi 05/25/2022; Thorax Wo Con dated 01/21/2022; Abdomen Pelvis Wo Contrast dated 02/08/2023; Chest Si ngle View dated 02/08/2023; Abdomen Pelvis Wo Contrast dated 11/20/2022 TECHNIQUE: Axial thin cut CT images of the chest were obtained without IV contrast. Multiplanar refo rmats were generated and reviewed. All CT scans are performed using dose optimization technique as appropriate and may include automated exposure control or mA/KV adjustment according to patient size. FINDINGS: Motion artifact somewhat limits evaluation. Bilateral pleural effusions, small on the left , and moderate on the right. Dependent right lower lobe segmental consolidation with some air broncho grams, not significantly changed in extent compared to the 11/20/2022 CT abdomen pelvis, but progress adrianna since the 09/13/2022 CT chest. Small foci of ground-glass opacification in the anterior right bas al lower lobe, and in the anterior left upper lobe near the apex, are new since the comparison CT [facility]. No pneumothorax. Stable marked cardiomegaly. Moderate to large hiatal hernia. No abnormal mediastinal or hilar masses or lymphadenopathy seen. No significant aortic or pulmonary artery findings. Assessment is limited in the absence of IV contrast. No chest wall mass or abnormal axillary lymphadenopathy. Evaluation of the solid abdominal structures reveals no suspicious findings. IMPRESSION: Bilateral pleural effusions larger on the right with underlying airspace opacification a t the right lung base which appears fairly stable since 11/20/2022, however new ground-glass opacitie s in the right basal lower lobe and left upper lobe anteriorly are present, which raise concern for p rogressive or recurrent pneumonia. Stable cardiomegaly.
[2023-02-08 18:27] LABS: Phosphorus 1.5 mg/dL (2.5-4.9)
[2023-02-08] MEDS ORDERED: NA CHLORIDE 0.9% 250 ML ONE (18:55)
[2023-02-08] MEDS ORDERED: HEPARIN 5000 UNIT/ML 1 ML VIAL SQ SCH (21:00)
[2023-02-08] MEDS: IPRATROPIUM BROM 0.5MG/2.5ML NEB SCH (21:15)
[2023-02-08] MEDS: ALBUTEROL 2.5 MG/3 ML NEB SOL NEB SCH (21:15)
[2023-02-08] MEDS ORDERED: ALBUTEROL 2.5 MG/3 ML NEB SOL ONE (21:24)
[2023-02-08] MEDS ORDERED: IPRATROPIUM BROM 0.5MG/2.5ML ONE (21:25)
[2023-02-08 21:40] VITALS: BMI 21.5
[2023-02-08] MEDS ORDERED: POTASS/SODIUM PHOSPHATE 1 PKT POWD.PACK PO SCH (23:45)
[2023-02-09] MEDS ORDERED: EPOETIN ALFA 10,000 UNIT/ML VIAL IV SCH (00:22)
[2023-02-09] MEDS ORDERED: PIPER TAZO 2.25 GM in NA CHLORIDE 0.9% 50 ML IV SCH (01:00)
[2023-02-09] MEDS: PIPER TAZO 3.375 GM in NA CHLORIDE 0.9% 100 ML IV SCH ×2 (01:03→11:33)
[2023-02-09] MEDS: IPRATROPIUM BROM 0.5MG/2.5ML NEB SCH ×3 (02:05→14:30)
[2023-02-09] MEDS: ALBUTEROL 2.5 MG/3 ML NEB SOL NEB SCH ×3 (02:05→14:30)
--- NOTE | 2023-02-09 02:57 | P.PN ---
Date of Service: 02/09/23 Troponin came back markedly elevated 8651. Stat EKG performed negative for STEMI criteria. Patient denies chest pain at this time. Previous chart reviewed he had an echocardiogram in May which showed"1. normal left ventricular ejection fraction 60-65% with normal wall motion 2. moderate concentric left ventricular hypertrophy 3. severe diastolic dysfunction 4. severe pulmonary hypertension with right ventricular systolic pressure greater than 60 mmHg 5. left atrial enlargement 6. mild tricuspid regurgitation, pulmonic insufficiency, mitral regurgitation, aortic insufficiency.", He had a cardiac catheterization performed on 06/19/2022 which revealed nonobstructive CAD. He is being admitted with anemia his initial hemoglobin was 6.1, patient with history of significant iron deficiency anemia he also had endoscopy performed during his admission in May which revealed gastritis. Given his significant anemia concern for possible occult bleeding we will hold off on heparin drip at least until repeat CBC is obtained which is currently pending. He did receive 1 unit PRBC during this admission already. Repeat troponins, echocardiogram, cardiology consult added. Patient evaluated denies chest pain or shortness of breath at this time. D-dimer also added.
[2023-02-09] MEDS ORDERED: SODIUM PHOSPHATE 10 MM in NA CHLORIDE 0.9% 250 ML IV ONE (03:00)
[2023-02-09 03:06] LABS: Absolute Lymphocytes (CBC) 0.4 K/uL (0.7-4.9); Hematocrit 18.4 % (39.6-49.0); MCV 85.3 fL (80-100); MPV 7.8 fL (7.6-11.3); Platelets 125 thou/uL (152-406); RBC Red Blood Cell Count 2.15 M/uL (4.33-5.43)
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
[2023-02-09 03:12] LABS: Albumin 2.7 g/dL (3.4-5.0); Bilirubin Total 1.1 mg/dL (0.2-1.0); Magnesium 2.2 mg/dL (1.6-2.4); Potassium 3.6 mEq/L (3.5-5.1); Protein, Total 5.9 g/dL (6.4-8.2)
[2023-02-09 03:15] LABS: Phosphorus 1.1 mg/dL (2.5-4.9)
[2023-02-09] MEDS ORDERED: NA CHLORIDE 0.9% 250 ML IV ONE (03:34)
[2023-02-09] MEDS ORDERED: SODIUM CHLORIDE 0.9% 10ML INJ IV PRN (03:36)
[2023-02-09] MEDS ORDERED: NA CHLORIDE 0.9% 250 ML IV SCH (04:00)
[2023-02-09] MEDS: NOREPINEPHRINE 4 MG in D5W 250 ML IV SCH ×2 (04:25→06:50)
[2023-02-09] MEDS ORDERED: NOREPINEPHRINE BITARTRATE/D5W 4 MG/250 ML BAG IV ONE ×2 (04:45→07:00)
[2023-02-09] MEDS ORDERED: D50W 25 GM/50 ML SYRINGE IV PRN (05:19)
[2023-02-09] MEDS ORDERED: GLUCAGON 1 MG/VIAL IM PRN (05:19)
[2023-02-09] MEDS ORDERED: D10W 125 ML IV PRN (05:26)
[2023-02-09] MEDS ORDERED: VANCOMYCIN 1 GM in NA CHLORIDE 0.9% 250 ML IVPB SCH (05:33)
[2023-02-09 05:38] LABS: Arterial Blood Carboxyhemoglob 1.2 % (0-1.5); Blood Gas Oxyhemoglobin 91.7 % (94-97); Blood O2 Saturation 94.2 % (92-98.5)
[2023-02-09] MEDS ORDERED: VANCOMYCIN 1.25 GM in NA CHLORIDE 0.9% 250 ML IVPB ONE ×2 (06:00→08:00)
--- NOTE | 2023-02-09 06:10 | P.PN ---
Date of Service: 02/09/23 Patient was septic shock, sepsis reassessment complete, blood pressure improved after initiation of vasopressor therapy. Patient will require CRRT and higher level of care, transfer initiated. Spoke with son, family regarding current critical condition and prognosis.
[2023-02-09] MEDS ORDERED: NA CHLORIDE 0.9% 250 ML ONE (06:14)
[2023-02-09] MEDS: INSULIN -REGULAR HUMAN 50 UNIT/0.5 ML ML SQ SCH ×2 (07:30→11:24)
[2023-02-09] MEDS ORDERED: POTASSIUM PHOS IN 0.9 % NACL 15 MMOL/250 ML BAG IV ONE (07:30)
[2023-02-09] MEDS ORDERED: FENTANYL CITR 100 MCG/2 ML IV ONE (07:55)
[2023-02-09] MEDS ORDERED: DOBUTAMINE 250 MG/250 ML BAG IV SCH (08:00)
[2023-02-09] MEDS ORDERED: RSI MEDICATION KIT IV ONE ×2 (08:02→13:56)
[2023-02-09] MEDS: NOREPINEPHRINE IV SCH ×2 (08:16→12:28)
[2023-02-09] MEDS: D5W IV SCH ×2 (08:16→12:28)
[2023-02-09] MEDS: DEXMEDETOMIDINE HCL 200 MCG in NA CHLORIDE 0.9% 98 ML IV SCH ×2 (08:33→14:18)
[2023-02-09] MEDS ORDERED: ALBUMIN HUMAN 25% 100 ML IV ONE (08:37)
[2023-02-09] MEDS ORDERED: LACTULOSE 20 GM/30 ML UCUP PO SCH (09:00)
[2023-02-09] MEDS ORDERED: ASPIRIN 81 MG CHEWABLE TABLET PO SCH (09:00)
[2023-02-09] MEDS ORDERED: FOLIC ACID 1 MG TABLET PO SCH (09:00)
[2023-02-09] MEDS ORDERED: PANTOPRAZOLE 40 MG INJ IVP SCH (09:00)
[2023-02-09] MEDS ORDERED: THIAMINE 200 MG/2 ML INJ IVP SCH (09:00)
[2023-02-09 10:09] VITALS: O2SAT 100
[2023-02-09 10:50] LABS: Hematocrit 23.8 % (39.6-49.0)
[2023-02-09 11:12] LABS: Potassium 3.8 mEq/L (3.5-5.1); Troponin High Sensitivity 16683.8 pg/mL (<58.9)
[2023-02-09] MEDS ORDERED: MIDAZOLAM HCL 5 ML ONE (13:59)
[2023-02-09] MEDS ORDERED: ETOMIDATE 20 MG/10 ML VIAL IV ONE (14:22)
--- NOTE | 2023-02-09 14:32 | PN ---
Date of Progress Note: 02/09/2023 Subjective: The patient was admitted with GI bleed, hypovolemic shock, over volume. The patient has been on Levophed. The patient had dialysis. Today, we managed to remove 3.5 L. After the dialysis by 1 hour, the patient had bradycardia, intubated. Physical Examination: Vital Signs: Blood pressure of 146/60, pulse of 68. Chest: Crackles bilateral base. Heart: S1, S2. Systolic murmur. Silas. Abdomen: Soft, distended. Extremities: Trace edema. Neuro: The patient sedated, on vent. Laboratory Data: Hemoglobin 8.5. Sodium 136, potassium 3.8, bicarb 22, BUN 40, creatinine 4, calciu m of 9. BNP is 60,000. Current Medications: The patient on Levophed, aspirin, vancomycin, Epogen, atorvastatin. Assessment And Plan: 1.End-stage renal disease, over volume with shock. We will continue daily dialysis. The patient no t stable hemodynamically. We will need CRRT for better of fluid controlled. We will follow up. Con tinue Levophed. 2.Over volume. We will continue trying to optimize fluid status with a daily dialysis. 3.Anemia secondary to GI bleed. We will continue p.r.n. transfusion. 4.Hypovolemic shock. Continue Levophed. Continue p.r.n. transfusion. VISHAL Voice ID: [id number] Report ID: [id number]
[2023-02-09] MEDS ORDERED: FENTANYL CITR 100 MCG/2 ML IV PRN (14:44)
[2023-02-09] MEDS ORDERED: LORazepam 2 MG/ML VIAL IV PRN (14:44)
[2023-02-09] MEDS ORDERED: MIDAZOLAM HCL 2 MG/2 ML INJ IV PRN (14:44)
[2023-02-09] MEDS ORDERED: HALOPERIDOL LACT 5 MG/ML INJ IV PRN (14:44)
[2023-02-09] MEDS ORDERED: PANTOPRAZOLE INJ 80 MG in NA CHLORIDE 0.9% 250 ML IV SCH (15:00)
[2023-02-09 15:09] LABS: Arterial Blood Carboxyhemoglob 0.9 % (0-1.5); Blood Gas Oxyhemoglobin 96.9 % (94-97); Blood O2 Saturation 99.3 % (92-98.5)
[2023-02-09 15:14] LABS: Arterial Blood Carboxyhemoglob 0.7 % (0-1.5); Blood Gas Oxyhemoglobin 96.7 % (94-97); Blood O2 Saturation 98.9 % (92-98.5)
--- NOTE | 2023-02-09 15:41 | RAD REPORT ---
EXAM DESCRIPTION: RAD - Abdomen 1 View (KUB) - 02/09/2023 6:00 am CLINICAL HISTORY: Ileus COMPARISON: None. FINDINGS: Bowel: Dilated small bowel with air identified in the colon. Large amount stool in the rec greta. Peritoneum: No free intraperitoneal air identified. Solid organs: No definite organomegaly. Calcifications: Atherosclerotic vascular calcification. Right femoral approach central venous cathete r. Bones: Degenerative change of the spine. Other: Likely right pleural effusion. IMPRESSION: 1. Dilated loops of small bowel with air identified in the colon. These findings could be seen with ileus or partial small bowel obstruction. 2. Large amount of stool in the rectum. Electronically signed by: Kit Leonard 02/09/2023 6:17 AM CDT Due to temporary technical issues with the PACS/Fluency reporting system, reports are being signed by the in house radiologists without review as a courtesy to insure prompt reporting. The interpreting radiologist is fully responsible for the content of the report.
--- NOTE | 2023-02-09 15:48 | RAD REPORT ---
EXAM DESCRIPTION: RAD - Chest Single View - 02/09/2023 4:27 am CLINICAL HISTORY: Dyspnea COMPARISON: None. FINDINGS: Single frontal radiograph view of the chest. Cardiomediastinal silhouette: Cardiomegaly. Lungs: Pulmonary vascular congestion. Bilateral interstitial opacities. Moderate right and small left pleural effusion. No pneumothorax. Bones: Degenerative change of the spine and shoulders. Upper abdomen: No abnormality identified. IMPRESSION: 1. Cardiomegaly with pulmonary edema pattern. 2. Moderate right and small left pleural effusion. Electronically signed by: Kit Leonard 02/09/2023 5:02 AM CDT Due to temporary technical issues with the PACS/Fluency reporting system, reports are being signed by the in house radiologists without review as a courtesy to insure prompt reporting. The interpreting radiologist is fully responsible for the content of the report.
--- NOTE | 2023-02-09 16:01 | P.DS ---
Admission Date: 02/08/23 Discharge Date: 02/09/23 Disposition: [facility] TO ACUTE CARE FACL Discharge Condition: FAIR Reason for Admission: Abd pain, low hemoglobin Consultations: 1. Pulmonology 2. Cardiology 3. Nephrology Hospital Course: DIAGNOSES: # Septic Shock secondary to Pneumonia (possibly Aspiration) # Acute on Chronic Diastolic Congestive Heart Failure Exacerbation on End-Stage Renal Disease on MWF iHD # Acute on Chronic Anemia of Chronic Kidney Disease s/p 2 units pRBCs # Suspected Type II Non-ST Segment Elevation Myocardial Infarction (Demand Ischemia) secondary to above # Acute Ileus s/p NG tube # Chronic Atrial Fibrillation/Flutter # Chronic Respiratory Failure secondary to Chronic Obstructive Pulmonary Disease on Home Oxygen (2.5 L) # Type II Diabetes Mellitus # Hypertension # Dyslipidemia # Large Left and Moderate Right Inguinal Hernia # Left Adrenal Nodule # Moderate Hiatal Hernia # Renal Cysts # Calcified Lung Granuloma HOSPITAL COURSE: Mr. uGzman Mayers is a 77 year old male with a past medical history significant for chronic respiratory failure secondary to chronic obstructive pulmonary disease on 2.5 L home oxygen, end-stage renal disease on MWF iHD, chronic diastolic heart failure, type 2 diabetes mellitus, chronic atrial fibrillation/flutter, and peripheral arterial disease who was admitted to the [facility] on 02/08/2023 for abdominal pain and lethargy. He was admitted to the Medicine service. His CT abdomen/pelvis revealed, "mild free bursitis. Mild gastric dilation and moderate dilation of the proximal duodenum. Findings may reflect mild ileus. Other stable findings including bilateral pleural effusions, cholelithiasis, atrophic changes of the kidneys, and colonic diverticulosis. Moderate stool burden noted along the distal sigmoid and rectum." His CT chest revealed, "bilateral pleural effusions larger on the right with underlying airspace opacification at the right lung base which appears fairly stable since 11/20/2022, however new ground-glass opacities in the right basal lower lobe and left upper lobe anteriorly are present, which raise concern for progressive or recurrent pneumonia. Stable cardiomegaly." He was started on vancomycin and piperacillin- tazobactam. Shortly after admission, he developed tachycardia, tachypnea, a low- grade temperature, and hypotension. He was found to be in respiratory distress and was started on BiPAP therapy. He was transferred to the ICU for vasopressor support. With norepinephrine, he was able to maintain adequate blood pressures. He was found to have an elevated troponin, so Cardiology was consulted. He was evaluated by Dr. Henriquez, who stated that his troponin leak was secondary to demand ischemia from his sepsis. In regards to his hypervolemia and pulmonary edema, Nephrology was consulted and he was evaluated by Dr. Wilson. She recommended dialysis, and with vasopressor support, she was able to remove 3 L via ultrafiltration. Following dialysis, an NG tube placement was attempted to decompress his stomach and he began to vomit. He had a bradycardic episode, for which a Code Blue was called. I arrived at bedside shortly after and he had received a dose of atropine per ICU protocol. He did not ever lose a pulse or require chest compressions. Family members were present at bedside, and stated that he would be agreeable to intubation. Dr. Mitchell arrived at bedside and successful intubation was performed. Confirmatory chest x-ray revealed, "endotracheal tube is satisfactory in position." Due to his degree of illness and the fact that he would benefit from CRRT, it was determined that he would be better served at a tertiary care facility. Transfer was initiated and doc-to-doc was completed with Dr. Watkins ([facility] Lead Software Development Engineer), who has generously accepted him for transfer. Prior to transfer a nasogastric tube was placed, and there appeared to be coffee-ground gastric contents in the tube. A pantoprazole drip was started in case he has a gastrointestinal bleed. I have updated his family members, Ms. Hermila Sandoval (daughter) and Mr. Emir Mayers (son). They are in agreement with the plan to transfer to [facility] ICU. We reviewed his [id number] and they have indicated that he would be agreeable to intubation, but is not agreeable to chest compressions or defibrillation. His code status has been updated in the chart. A copy of this discharge summary will be sent to the above providers to facilitate continuity of care. Today, I personally spent 50 minutes on his case. Vital Signs/Physical Exam: Temp Pulse Resp BP Pulse Ox 99.6 F 118 H 22 H 95/49 L 93 02/09/23 06:00 02/09/23 13:55 02/09/23 11:30 02/09/23 11:30 02/09/23 13:55 General: Other (intubated, sedated) HEENT: Atraumatic, Mucous membr. moist/pink, Sclerae nonicteric Neck: JVD distended Respiratory: Diminished, Crackles/rales (bibasilar), Rhonchi/gurgles (right- sided) Cardiovascular: No murmurs, Edema (1+ BLE), Irregular heart rate/rhythm Gastrointestinal: Hypoactive, No tenderness, No rebound, No guarding, Distended Musculoskeletal: No clubbing Integumentary: No rashes Neurological: Other (intubated, sedated) Laboratory Data at Discharge: WBC 1.90 thou/uL (4.3-10.9) L 02/09/23 02:17 Hgb 8.5 g/dL (13.6-17.9) L D 02/09/23 10:37 Hct 23.8 % (39.6-49.0) L 02/09/23 10:37 Plt Count 125 thou/uL (152-406) L 02/09/23 02:17 Sodium 136 mEq/L (136-145) 02/09/23 10:37 Potassium 3.8 mEq/L (3.5-5.1) 02/09/23 10:37 BUN 40 mg/dL (7-18) H 02/09/23 10:37 Creatinine 4.11 mg/dL (0.70-1.30) H 02/09/23 10:37 Glucose 144 mg/dL (74-106) H 02/09/23 10:37 Phosphorus 1.1 mg/dL (2.5-4.9) L* 02/09/23 02:17 Magnesium 2.2 mg/dL (1.6-2.4) 02/09/23 02:17 Total Bilirubin 1.1 mg/dL (0.2-1.0) H 02/09/23 02:17 AST 44 U/L (15-37) H 02/09/23 02:17 ALT 30 U/L (16-61) 02/09/23 02:17 Alkaline Phosphatase 317 U/L (45-117) H 02/09/23 02:17 Lipase 20 U/L (13-75) 02/08/23 14:11 Home Medications: Atorvastatin Calcium 40 mg PO BEDTIME 09/10/22 Carvedilol [Coreg] 12.5 mg PO BID 09/10/22 Pantoprazole [Protonix Tab*] 40 mg PO DAILY 09/10/22 Aspirin [Aspirin EC 81 MG] 81 mg PO DAILY 11/08/22 Metoprolol Tartrate [Lopressor*] 12.5 mg PO BID 11/08/22 Cyclobenzaprine [Flexeril*] 5 mg PO TIDP PRN 12/26/22 Sennosides/Docusate Sodium [Stool Softener-Stim Lax Tablet] 1 tab PO DAILY 12/26/22 Oxycodone HCl/Acetaminophen [Oxycodone-Acetaminophen 10-325] 1 each PO Q8HP PRN 01/23/23 Physician Discharge Instructions: - Continue care at [facility] Diet: NPO Activity: Bedrest Followup: Naveed Fortune DO [Primary Care Provider] - Time spent managing pt's care (in minutes): 50
--- NOTE | 2023-02-09 16:03 | RAD REPORT ---
EXAM DESCRIPTION: RADChest Single View02/09/2023 2:23 pm CLINICAL HISTORY: E-tube placement COMPARISON: Abdomen 1 View (KUB) dated 02/09/2023; Chest Single View dated 02/09/2023; Chest Single Vi ew dated 02/08/2023; Chest Single View dated 12/25/2022; Thorax Wo Con dated 02/08/2023 TECHNIQUE: Portable AP view of the chest. FINDINGS: Endotracheal tube is satisfactory in position, although zachary is obscured by the radioden se and overlying the central chest. Enteric tube tip courses to the level of the lower chest, probabl y present within a known hiatal hernia. Bilateral pleural effusions larger on the right. Patchy right airspace opacities, partially improved since radiographs of the previous day. Stable cardiomegaly. No pneumothorax. The mediastinal contour s are unchanged. IMPRESSION: Support tubes as above. Partially improved patchy right basilar airspace opacity.
--- NOTE | 2023-02-09 16:53 | P.CNS ---
Date of Consult: 02/09/23 Reason for Consult: Respiratory failure and shock Chief Complaint: Abd pain, low hemoglobin History of Present Illness: Patient is 77 years of age with a history of CHF end-stage renal disease Bolick syndrome with generalized abdominal pain and low hemoglobin he was lethargic Transferred to the emergency room also noted to have lower extremity swelling right groin pain had a bowel movement for some time patient became hypotensive was started on Levophed drip agitated for pulse waveform and was started on a BiPAP oxygenation satisfactory Allergies codeine Allergy (Verified 09/29/22 22:59) Hallucinations gabapentin Adverse Reaction (Verified 09/29/22 22:59) Hallucinations Home Medications: Atorvastatin Calcium 40 mg PO BEDTIME 09/10/22 Carvedilol [Coreg] 12.5 mg PO BID 09/10/22 Pantoprazole [Protonix Tab*] 40 mg PO DAILY 09/10/22 Aspirin [Aspirin EC 81 MG] 81 mg PO DAILY 11/08/22 Metoprolol Tartrate [Lopressor*] 12.5 mg PO BID 11/08/22 Cyclobenzaprine [Flexeril*] 5 mg PO TIDP PRN 12/26/22 Sennosides/Docusate Sodium [Stool Softener-Stim Lax Tablet] 1 tab PO DAILY 12/26/22 Oxycodone HCl/Acetaminophen [Oxycodone-Acetaminophen 10-325] 1 each PO Q8HP PRN 01/23/23 - Past Medical/Surgical History Diabetic: Yes -: Hypertension -: Hyperlipidemia -: Diabetes type 2, insulin dependent -: End-stage renal disease, hemodialysis-Wednesday, Wednesday, Wednesday -: Diastolic CHF -: COPDon home O2 -: Anemia of chronic disease -: 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 He has 3 children - Family History mother and father Medical History: Hypertension Notes: adopted - Social History Smoking Status: Unknown if ever smoked Alcohol use: No CD- Drugs: No Caffeine use: No Place of Residence: Home Review of Systems is unable to be obtained Physical Examination Temp Pulse Resp BP Pulse Ox 99.6 F 118 H 22 H 95/49 L 93 02/09/23 06:00 02/09/23 13:55 02/09/23 11:30 02/09/23 11:30 02/09/23 13:55 General: Severe distress Respiratory: Clear to auscultation bilaterally, Diminished Cardiovascular: Regular rate/rhythm, Edema Gastrointestinal: Soft and benign, Non-distended Musculoskeletal: No clubbing Integumentary: No rashes, No breakdown Laboratory Data (last 24 hrs) 02/08/23 14:11 Phosphorus 1.5 L* Magnesium 2.6 H - Problems (1) Shock Current Visit: Yes Status: Acute Plan: Patient is 77 years of age admitted with anemia is end-stage renal disease specific finding on abdominal CT scan chest x-ray shows severe cardiomegaly with right-sided pleural effusion suspect chronic currently on a Levophed drip 100% BiPAP CBC shows pancytopenia patient subsequently aspirated and had to be intubated tach acid is also very elevated opponent over 16,000 agree with present antibiotic therapy with ventilator support vent to later settings reviewed prognosis poor scheduled to be transferred to a tertiary care facility
[2023-02-09 17:16] VITALS: BP 103/62; TEMP 97.2
[2023-02-09] MEDS ORDERED: ATORVASTATIN 40 MG TAB PO SCH (21:00)
--- NOTE | 2023-02-10 09:26 | ECHO ---
HEIGHT: 5 ft 10 in WEIGHT: 150 lb 0 oz DATE OF STUDY: 02/09/[address]: Bryan Harrington NP 2-DIMENSIONAL: YES M.MODE: YES DOPPLER: YES COLOR FLOW: YES TDS: PORTABLE: YES DEFINITY: BUBBLE STUDY: DIAGNOSIS: NON ST ELEVATION MYOCARDIAL INFARCTION CARDIAC HISTORY: CATHERIZATION: NO SURGERY: NO PROSTHETIC VALVE: NO PACEMAKER: NO MEASUREMENTS (cm) DIASTOLIC (NORMALS) SYSTOLIC (NORMALS) IVSd 1.5 (0.6-1.2) LA Diam 4.7 (1.9-4.0) LVEF 63% LVIDd 4.6 (3.5-5.7) LVIDs 3.0 (2.0-3.5) %FS 34% LVPWd 1.5 (0.6-1.2) Ao Diam 3.4 (2.0-3.7) 2 DIMENSIONAL ASSESSMENT: RIGHT ATRIUM: NORMAL LEFT ATRIUM: ENLARGED RIGHT VENTRICLE: NORMAL LEFT VENTRICLE: SEVERE LEFT VENTRICULAR HYPERTROPHY TRICUSPID VALVE: MILD TRICUSPID REGURGITATION MITRAL VALVE: HEAVILY CALCIFIED WITH MILD MITRAL REGURGITATION PULMONIC VALVE: NORMAL AORTIC VALVE: NORMAL PERICARDIAL EFFUSION: NONE AORTIC ROOT: NORMAL LEFT VENTRICULAR WALL MOTION: NORMAL DOPPLER/COLOR FLOW: SEE BELOW COMMENTS: 1. NORMAL LEFT VENTRICULAR EJECTION FRACTION 60-65% WITH NORMAL WALL MOTION 2. SEVERE DIASTOLIC DYSFUCNTION 3. LEFT ATRIAL ENLARGEMENT 4. MILD MITRAL REGURGITATION TECHNOLOGIST: YOUNG WATSON
--- NOTE | 2023-02-10 14:59 | EKG ---
Test Date: 2023-02-09 Test Time: 03:48:58 Manager Learning: SARAH MEASUREMENT RESULTS: Intervals: Rate: 76 CO: QRSD: 184 QT: 460 QTc: 517 [place]: P: CO: QRS: 248 T: -5 INTERPRETIVE STATEMENTS: Atrial fibrillation Right bundle branch block Septal infarct, age undetermined Inferior infarct, age undetermined Abnormal ECG Compared to ECG 02/09/2023 01:56:43 Myocardial infarct finding still present Electronically Signed On 02-10-23 14:55:53 CDT by [place] Henriquez
--- NOTE | 2023-02-10 15:00 | EKG ---
Test Date: 2023-02-09 Test Time: 01:56:43 Business Management Manager: SARAH MEASUREMENT RESULTS: Intervals: Rate: 66 RI: QRSD: 182 QT: 482 QTc: 505 [place]: P: RI: QRS: 203 T: -3 INTERPRETIVE STATEMENTS: Atrial fibrillation Right bundle branch block Anteroseptal infarct, age undetermined Abnormal ECG Compared to ECG 12/25/2022 19:48:15 Sinus bradycardia no longer present Left-axis deviation no longer present Myocardial infarct finding still present Electronically Signed On 02-10-23 14:55:55 CDT by [place] Henriquez
--- NOTE | 2023-02-11 13:05 | EKG ---
Test Date: 2023-02-09 Test Time: 14:18:49 Diesel Stationary Engineer: ZEFERINO MEASUREMENT RESULTS: Intervals: Rate: 116 IN: 160 QRSD: 180 QT: 472 QTc: 656 [place]: P: IN: 160 QRS: -84 T: 65 INTERPRETIVE STATEMENTS: Sinus tachycardia Left axis deviation Right bundle branch block Septal infarct, age undetermined Inferior infarct, age undetermined Abnormal ECG Compared to ECG 02/09/2023 07:40:56 Left-axis deviation now present Myocardial infarct finding still present Electronically Signed On 02-11-23 13:01:52 CDT by Chico Henriquez
--- NOTE | 2023-02-11 13:05 | EKG ---
Test Date: 2023-02-09 Test Time: 07:40:56 Chief Credit Officer: SARAH MEASUREMENT RESULTS: Intervals: Rate: 97 [place]: QRSD: 172 QT: 422 QTc: 535 [place]: P: MN: QRS: 264 T: -33 INTERPRETIVE STATEMENTS: Atrial fibrillation Right bundle branch block Septal infarct, age undetermined Inferior infarct, age undetermined Abnormal ECG Compared to ECG 02/09/2023 03:48:58 Myocardial infarct finding still present Electronically Signed On 02-11-23 13:02:14 CDT by [place] Henriquez
== END 2023-02-09 16:40 | disposition short-term general hospital (02) | DRG 871 ==
LOC: ER 13:36 → ERHOLD 16:38 → 2ND 22:37 → 3RD-ICU 02-09 04:12
PROVIDERS: ADMIT Internal Medicine; ATTEND Internal Medicine
PROC: 5A09357 Assistance with Respiratory Ventilation, Less than 24 Consecutive Hours, Continuous Positive Airway Pressure (ICD-10-PCS; principal; 2023-02-09)
PROC: 5A1D70Z Performance of Urinary Filtration, Intermittent, Less than 6 Hours Per Day (ICD-10-PCS; 2023-02-09)
PROC: 30233N1 Transfusion of Nonautologous Red Blood Cells into Peripheral Vein, Percutaneous Approach (ICD-10-PCS; 2023-02-09)
DX: A41.9 Sepsis, unspecified organism (principal); I21.A1 Myocardial infarction type 2; I50.33 Acute on chronic diastolic (congestive) heart failure; N18.6 End stage renal disease; R65.21 Severe sepsis with septic shock; R57.1 Hypovolemic shock; J69.0 Pneumonitis due to inhalation of food and vomit; I13.2 Hypertensive heart and chronic kidney disease with heart failure and with stage 5 chronic kidney disease, or end stage renal disease; K56.7 Ileus, unspecified; R18.8 Other ascites; I48.20 Chronic atrial fibrillation, unspecified; I48.92 Unspecified atrial flutter; J96.10 Chronic respiratory failure, unspecified whether with hypoxia or hypercapnia; D61.818 Other pancytopenia; L89.151 Pressure ulcer of sacral region, stage 1; E11.22 Type 2 diabetes mellitus with diabetic chronic kidney disease; E11.51 Type 2 diabetes mellitus with diabetic peripheral angiopathy without gangrene; D63.1 Anemia in chronic kidney disease; D63.8 Anemia in other chronic diseases classified elsewhere; E83.39 Other disorders of phosphorus metabolism; I08.3 Combined rheumatic disorders of mitral, aortic and tricuspid valves; I27.20 Pulmonary hypertension, unspecified; K21.9 Gastro-esophageal reflux disease without esophagitis; F90.9 Attention-deficit hyperactivity disorder, unspecified type; J84.10 Pulmonary fibrosis, unspecified; N28.1 Cyst of kidney, acquired; E78.00 Pure hypercholesterolemia, unspecified; K40.90 Unilateral inguinal hernia, without obstruction or gangrene, not specified as recurrent; Z88.5 Allergy status to narcotic agent; Z79.4 Long term (current) use of insulin; Z88.8 Allergy status to other drugs, medicaments and biological substances; Z99.2 Dependence on renal dialysis; Z79.82 Long term (current) use of aspirin; Z99.81 Dependence on supplemental oxygen; Z79.899 Other long term (current) drug therapy; Z89.422 Acquired absence of other left toe(s); Z87.891 Personal history of nicotine dependence
CPT/HCPCS: 36415; 36600; 71045; 71250; 74018; 74176; 80048; 80053; 82728; 82805; 82947; 83540; 83605; 83690; 83735; 84100; 84466; 84484; 85014; 85018; 85025; 85379; 86850; 86900; 86901; 86920; 87040; 87077; 87186; 87205; 90935; 93005; 93306; 94002; 94660; 99285; C9113; J2250; J2405; J2543; J2704; J3010; J3411; J7050; J7060; J7613; J7644; P9016; P9047